=== PATIENT | male | born 1960 | race American Indian/Alaskan Native ===

== ENCOUNTER 2017-04-01 13:52 | Emergency (ER) | payer OTHER ==
--- NOTE | 2017-04-01 15:57 | Emergency Department Report ---
Chief Complaint: Upper Respiratory Infection Stated Complaint: COUGH Time Seen by Provider: 04/01/17 15:54 - HPI History of Present Illness: PT c/o cough since December - Review of Systems: + cp + dizziness - Exam Physical Exam: pt is alert and appropriate in triage no acute resp distress lung sounds diminished jarek MSE screening note: Focused history and physical exam performed. Due to findings the following was ordered: ekg, xr, ct, labs ED Disposition for MSE Condition: Stable
[2017-04-01 16:44] LABS: Basophils % (Auto) 0.5 % (0.0-1.8); Eosinophils % (Auto) 5.8 % (0.0-4.3); Hematocrit 33.8 % (35.5-45.6); Mean Corpuscular HGB Conc 33 % (32-34); Mean Corpuscular Hemoglobin 29 pg (28-32); Mean Corpuscular Volume 89 fl (84-94); Platelet Count 199 K/mm3 (140-440); Red Blood Count 3.81 M/mm3 (3.65-5.03); White Blood Count 5.4 K/mm3 (4.5-11.0)
[2017-04-01 17:00] LABS: Alanine Aminotransferase 11 units/L (7-56); Albumin 4.2 g/dL (3.9-5); Albumin/Globulin Ratio 1.7 %; Alkaline Phosphatase 81 units/L (35-129); Anion Gap 22 mmol/L; BUN/Creatinine Ratio 9.16; Blood Urea Nitrogen 33 mg/dL (9-20); Calcium 9.3 mg/dL (8.4-10.2); Carbon Dioxide 20 mmol/L (22-30); Chloride 106.2 mmol/L (98-107); Glucose 91 mg/dL (75-100); Potassium 5.5 mmol/L (3.6-5.0); Sodium 143 mmol/L (137-145); Total Protein 6.7 g/dL (6.3-8.2)
--- NOTE | 2017-04-01 17:41 | Cat Scan Report ---
FINAL REPORT EXAM: CT HEAD/BRAIN WO CON HISTORY: dizziness TECHNIQUE: CT head without contrast PRIORS: None. FINDINGS: No acute intra-axial or extra-axial hemorrhage is identified. There is no evidence of midline shift or mass effect. The ventricles and sulci are within normal limits. Calvert-white matter differentiation is intact. No acute parenchymal abnormalities seen. There are patchy and confluent hypodensities within the supratentorial white matter. Bony calvarium is grossly intact. Visualized portions of the mastoids and paranasal sinuses are unremarkable. IMPRESSION: Bilateral white matter hypodensity which appears more prominent in the left posterior parietal region. Could reflect a number of etiologies including chronic small vessel ischemic change, vasculitis or other etiologies. Consider followup MRI if continued clinical concern.
[2017-04-01 19:52] LABS: Bilirubin,Urine NEG (Negative); Blood,Urine NEG (Negative); Ketones,Urine NEG (Negative); Leukocyte Esterase,Urine NEG (Negative); Mucus,Urine FEW /HPF; Nitrite,Urine NEG (Negative); Urobilinogen,Urine < 2.0 mg/dL (<2.0)
--- NOTE | 2017-04-01 20:25 | Emergency Department Report ---
ED General Adult HPI - General Chief complaint: Upper Respiratory Infection Stated complaint: COUGH Time Seen by Provider: 04/01/17 15:54 Source: patient Mode of arrival: Ambulatory Limitations: No Limitations - History of Present Illness Initial comments: Patient is a 46-year-old male who presents with cough that on since December. He states that he takes his lisinopril and his doctor says that it may be the reason why. He states that he's been lightheaded when he coughs. No chest pain and he is short of breath with exertion. Shortness of breath is mild. Walking makes the shortness of breath and coughing worse him not taking his lisinopril makes the coughing better. Patient denies having any fever but he states that he's been coughing some green mucus for the last week days. - Related Data Previous Rx's Medication Instructions Recorded Last Taken Type Famotidine [Pepcid] 20 mg PO DAILY #30 tablet 06/12/15 03/14/16 09:00 Rx Carvedilol [Coreg] 12.5 mg PO BID #60 tablet 10/03/15 03/15/16 09:00 Rx Furosemide [Lasix TAB] 20 mg PO QDAY #30 tablet 10/03/15 03/14/16 09:00 Rx amLODIPine [Norvasc] 10 mg PO QDAY #30 tablet 10/03/15 03/14/16 09:00 Rx hydrALAZINE [Apresoline TAB] 100 mg PO TID #90 tab 10/03/15 03/14/16 09:00 Rx oxyCODONE /ACETAMINOPHEN [Percocet 1 - 2 tab PO Q4HR PRN #40 tab 03/15/16 Unknown Rx 5/325] ALBUTEROL Inhaler [ProAir HFA 2 puff IH QID PRN #1 inhalation 04/01/17 Unknown Rx Inhaler] Azithromycin [Zithromax Z-ANGEL] 250 mg PO DAILY #5 tablet 04/01/17 Unknown Rx predniSONE [Deltasone] 20 mg PO BID #10 tab 04/01/17 Unknown Rx Allergies Allergy/AdvReac Type Severity Reaction Status Date / Time No Known Allergies Allergy Verified 06/11/15 20:50 ED Review of Systems ROS: Stated complaint: COUGH Other details as noted in HPI Constitutional: denies: chills, fever Eyes: denies: eye pain, eye discharge, vision change ENT: denies: ear pain, throat pain Respiratory: cough, SOB with exertion Cardiovascular: denies: chest pain, palpitations Endocrine: no symptoms reported Gastrointestinal: denies: abdominal pain, nausea, diarrhea Genitourinary: denies: urgency, dysuria Musculoskeletal: denies: back pain, joint swelling, arthralgia Skin: denies: rash, lesions Neurological: denies: headache, weakness, paresthesias Psychiatric: denies: anxiety, depression Hematological/Lymphatic: denies: easy bleeding, easy bruising ED Past Medical Hx - Past Medical History Previous Medical History?: Yes Hx Hypertension: Yes (FOR YRS, DR. GREEN- PCP) Hx Heart Attack/AMI: No Hx Congestive Heart Failure: Yes (IN 2013) Hx Diabetes: No Hx GERD: Yes Hx Renal Disease: Yes (CKD STAGE 3) Hx Sickle Cell Disease: No Hx Headaches / Migraines: Yes Hx Seizures: No Hx Asthma: No Hx COPD: No Hx Dementia: No Hx HIV: No Additional medical history: Crohns - Surgical History Past Surgical History?: Yes Hx Cholecystectomy: Yes ([place] 1998) Hx Appendectomy: Yes ([place] 2007) - Social History Smoking Status: Current Every Day Smoker Substance Use Type: None - Medications Home Medications: Home Medications Medication Instructions Recorded Confirmed Last Taken Type Famotidine [Pepcid] 20 mg PO DAILY #30 tablet 06/12/15 03/15/16 03/14/16 09:00 Rx Carvedilol [Coreg] 12.5 mg PO BID #60 tablet 10/03/15 03/15/16 03/15/16 09:00 Rx Furosemide [Lasix TAB] 20 mg PO QDAY #30 tablet 10/03/15 03/15/16 03/14/16 09: 00 Rx amLODIPine [Norvasc] 10 mg PO QDAY #30 tablet 10/03/15 03/15/16 03/14/16 09:00 Rx hydrALAZINE [Apresoline TAB] 100 mg PO TID #90 tab 10/03/15 03/15/16 03/14/16 09 :00 Rx oxyCODONE /ACETAMINOPHEN [Percocet 1 - 2 tab PO Q4HR PRN #40 tab 03/15/16 Unknown Rx 5/325] ALBUTEROL Inhaler [ProAir HFA 2 puff IH QID PRN #1 inhalation 04/01/17 Unknown Rx Inhaler] Azithromycin [Zithromax Z-ANGEL] 250 mg PO DAILY #5 tablet 04/01/17 Unknown Rx predniSONE [Deltasone] 20 mg PO BID #10 tab 04/01/17 Unknown Rx ED Physical Exam - General Limitations: No Limitations General appearance: alert - Head Head exam: Present: atraumatic - Eye Eye exam: Present: normal appearance, EOMI - ENT ENT exam: Present: mucous membranes moist - Neck Neck exam: Present: normal inspection - Respiratory Respiratory exam: Present: normal lung sounds bilaterally. Absent: respiratory distress - Cardiovascular Cardiovascular Exam: Present: regular rate, normal rhythm. Absent: systolic murmur, diastolic murmur, rubs, gallop - GI/Abdominal GI/Abdominal exam: Present: soft, normal bowel sounds - Extremities Exam Extremities exam: Present: normal inspection - Back Exam Back exam: Present: normal inspection - Neurological Exam Neurological exam: Present: alert, oriented X3 - Psychiatric Psychiatric exam: Present: normal affect, normal mood - Skin Skin exam: Present: warm, dry, intact, normal color. Absent: rash ED Course Vital Signs 04/01/17 04/01/17 15:54 21:24 Temperature 97.8 F Pulse Rate 59 L 64 Respiratory 16 18 Rate Blood Pressure 139/88 Blood Pressure 138/77 [Right] O2 Sat by Pulse 100 98 Oximetry - Reevaluation(s) Reevaluation #1: 04/01/17 21:23 Patient got breathing treatment and states he is feeling a lot better. Reevaluation #2: 04/01/17 21:39 Discussed with patient to stop taking his NUBIA inhibitor medication which is causing his dry cough. Patient understands and will have patient sent home with oral antibiotic medication and follow-up with his PCP. ED Medical Decision Making - Lab Data Result diagrams: 04/01/17 16:11 04/01/17 16:11 Laboratory Results - last 24 hr 04/01/17 04/01/17 04/01/17 16:11 16:11 19:15 WBC 5.4 RBC 3.81 Hgb 11.0 L Hct 33.8 L MCV 89 MCH 29 MCHC 33 RDW 16.0 H Plt Count 199 Lymph % (Auto) 23.7 [place] % (Auto) 10.0 H Eos % (Auto) 5.8 H Baso % (Auto) 0.5 Lymph # 1.3 [place] # 0.5 Eos # 0.3 Baso # 0.0 Seg Neutrophils % 60.0 Seg Neutrophils # 3.3 Sodium 143 Potassium 5.5 H Chloride 106.2 Carbon Dioxide 20 L Anion Gap 22 BUN 33 H Creatinine 3.6 H Estimated GFR 21 BUN/Creatinine Ratio 9.16 Glucose 91 Calcium 9.3 Total Bilirubin 0.50 AST 13 ALT 11 Alkaline Phosphatase 81 Troponin T < 0.010 NT-Pro-B Natriuret Pep 122.3 Total Protein 6.7 Albumin 4.2 Albumin/Globulin Ratio 1.7 Urine Color Yellow Urine Turbidity Clear Urine pH 5.0 Ur Specific [place] 1.018 Urine Protein 100 mg/dl Urine Glucose (UA) Neg Urine Ketones Neg Urine Blood Neg Urine Nitrite Neg Urine Bilirubin Neg Urine Urobilinogen < 2.0 Ur Leukocyte Esterase Neg Urine WBC (Auto) 2.0 Urine RBC (Auto) 3.0 Urine Mucus Few - EKG Data -: EKG Interpreted by [place] - EKG Data 04/01/17 21:19 EKG shows sinus bradycardia with first-degree AV block patient has LVH no ST segment elevation or T wave abnormality. - Radiology Data Radiology results: image reviewed Chest x-ray: Shows retrocardiac infiltrate concerning for walking pneumonia CT head non contrast: shows chronic ischemic vascular disease - Medical Decision Making Chief medical diagnosis: Bronchitis Differential medical diagnosis: Pneumonia, COPD exacerbation, brain tumor EKG, CBC, CMP, troponin, x-ray, CT head Chest x-ray shows signs of walking pneumonia, EKG and blood work showed no concerning signs. Patient is able to ambulate without difficulty. He is feeling better after the breathing treatment and CT head shows no acute intracranial process is no longer lightheaded. Patient can go home and follow up with his primary care provider. Additional verbal discharge instructions were given. Critical care attestation.: If time is entered above; I have spent that time in minutes in the direct care of this critically ill patient, excluding procedure time. ED Disposition Clinical Impression: Walking pneumonia, Cough due to NUBIA inhibitor Disposition: DC-01 TO HOME OR SELFCARE Is pt being admited?: No Does the pt Need Aspirin: No Condition: Stable Instructions: Pneumonia (ED) Prescriptions: ALBUTEROL Inhaler [ProAir HFA Inhaler] 2 puff IH QID PRN #1 inhalation PRN Reason: Shortness Of Breath Azithromycin [Zithromax Z-ANGEL] 250 mg PO DAILY #5 tablet predniSONE [Deltasone] 20 mg PO BID #10 tab Referrals: PRIMARY CARE, [Primary Care Provider] - 3-5 Days Time of Disposition: 21:49
[2017-04-01] MEDS ORDERED: PROVENTIL IH ONE (20:27)
[2017-04-01 21:27] VITALS: BP 138/77
[2017-04-01] MEDS ORDERED: ZITHROMAX PO ONE (21:35)
--- NOTE | 2017-04-02 09:42 | XRay Report ---
Chest 2 views. History: Cough. Findings: The heart is mildly enlarged with normal pulmonary vascularity. The lungs are free of acute infiltrates. No significant pleural abnormalities are seen. The bony structures are unremarkable. Impression: No acute findings.
== END 2017-04-01 21:56 | disposition home or self-care (01) ==
LOC: ED 13:52
DX: J18.9 Pneumonia, unspecified organism (principal); I13.0 Hypertensive heart and chronic kidney disease with heart failure and stage 1 through stage 4 chronic kidney disease, or unspecified chronic kidney disease; N18.3 Chronic kidney disease, stage 3 (moderate); I50.9 Heart failure, unspecified; K21.9 Gastro-esophageal reflux disease without esophagitis; G43.909 Migraine, unspecified, not intractable, without status migrainosus; F17.210 Nicotine dependence, cigarettes, uncomplicated
CPT/HCPCS: 36415; 70450; 71020; 80053; 81001; 83880; 84484; 85025; 93005; 93010; 99284

== ENCOUNTER 2017-05-02 11:16 | Emergency (ER) | payer OTHER ==
[2017-05-02 13:15] LABS: Basophils % (Auto) 0.5 % (0.0-1.8); Eosinophils % (Auto) 4.2 % (0.0-4.3); Hematocrit 35.6 % (35.5-45.6); Hemoglobin 11.9 gm/dl (11.8-15.2); Mean Corpuscular HGB Conc 33 % (32-34); Mean Corpuscular Hemoglobin 30 pg (28-32); Mean Corpuscular Volume 91 fl (84-94); Platelet Count 222 K/mm3 (140-440); Red Blood Count 3.92 M/mm3 (3.65-5.03); Red Cell Distribution Width 16.6 % (13.2-15.2); White Blood Count 4.6 K/mm3 (4.5-11.0)
[2017-05-02 13:35] LABS: Albumin 4.2 g/dL (3.9-5); Albumin/Globulin Ratio 1.2 %; BUN/Creatinine Ratio 5.94; Bilirubin,Total 0.7 mg/dL (0.1-1.2); Calcium 9.8 mg/dL (8.4-10.2); Chloride 101.8 mmol/L (98-107); Potassium 5.7 mmol/L (3.6-5.0); Total Protein 7.6 g/dL (6.3-8.2)
[2017-05-02 13:45] LABS: Bacteria,Urine 1+ /HPF (Negative); Bilirubin,Urine NEG (Negative); Blood,Urine NEG (Negative); Ketones,Urine NEG (Negative); Leukocyte Esterase,Urine NEG (Negative); Mucus,Urine 3+ /HPF; Nitrite,Urine NEG (Negative); Urobilinogen,Urine < 2.0 mg/dL (<2.0)
[2017-05-02 16:11] VITALS: BP 145/93
[2017-05-02] MEDS ORDERED: NACL 0.9% 1000 ML 1,000 ML IV ONE (16:11)
[2017-05-02] MEDS ORDERED: MORPHINE IV ONE (16:11)
[2017-05-02] MEDS ORDERED: ALUM-MAG HYDROX-SIMETH 200-200-20MG/5ML PO ONE (16:12)
[2017-05-02] MEDS ORDERED: ZOFRAN IV ONE (16:12)
--- NOTE | 2017-05-02 16:15 | Emergency Department Report ---
HPI - General Chief Complaint: Abdominal Pain Time Seen by Provider: 05/02/17 16:10 - HPI HPI: 56-year-old -[place] male presents to the ED with severe epigastric pain , nausea but no vomiting. Patient has a history of gastric ulcer for which he takes Protonix. Patient states he is compliant with his medication. He states that his pain is accompanied by nausea, but no vomiting, no urinary symptoms, no diarrhea. Patient has not taking any medication at home for his symptoms. he denies any exacerbating factors. he denies any alleviating factors. he denies any recent travel, or unusual foods. he denies any sick contacts. MD Complaint: abdominal pain -: Gradual Location: Epigastric Radiation: none Migration to: no migration Severity scale (0 -10): 10 Quality: sharp Improves With: nothing Associated Symptoms: nausea, vomiting, chills ED Past Medical Hx - Past Medical History Previous Medical History?: Yes Hx Hypertension: Yes (FOR YRS, DR. GREEN- PCP) Hx Heart Attack/AMI: No Hx Congestive Heart Failure: Yes (IN 2013) Hx Diabetes: No Hx GERD: Yes Hx Renal Disease: Yes (CKD STAGE 3) Hx Sickle Cell Disease: No Hx Headaches / Migraines: Yes Hx Seizures: No Hx Asthma: No Hx COPD: No Hx Dementia: No Hx HIV: No Additional medical history: Crohns - Surgical History Past Surgical History?: Yes Hx Cholecystectomy: Yes ([place] 1998) Hx Appendectomy: Yes ([place] 2007) - Social History Smoking Status: Current Every Day Smoker Substance Use Type: None - Medications Home Medications: Home Medications Medication Instructions Recorded Confirmed Last Taken Type Famotidine [Pepcid] 20 mg PO DAILY #30 tablet 06/12/15 03/15/16 03/14/16 09:00 Rx Carvedilol [Coreg] 12.5 mg PO BID #60 tablet 10/03/15 03/15/16 03/15/16 09:00 Rx Furosemide [Lasix TAB] 20 mg PO QDAY #30 tablet 10/03/15 03/15/16 03/14/16 09: 00 Rx amLODIPine [Norvasc] 10 mg PO QDAY #30 tablet 10/03/15 03/15/16 03/14/16 09:00 Rx hydrALAZINE [Apresoline TAB] 100 mg PO TID #90 tab 10/03/15 03/15/1616 09 :00 Rx oxyCODONE /ACETAMINOPHEN [Percocet 1 - 2 tab PO Q4HR PRN #40 tab 03/15/16 Unknown Rx 5/325] ALBUTEROL Inhaler [ProAir HFA 2 puff IH QID PRN #1 inhalation 04/01/17 Unknown Rx Inhaler] Azithromycin [Zithromax Z-ANGEL] 250 mg PO DAILY #5 tablet 04/01/17 Unknown Rx predniSONE [Deltasone] 20 mg PO BID #10 tab 04/01/17 Unknown Rx ED Review of Systems ROS: Stated complaint: ABDOMINAL PAIN Other details as noted in HPI Comment: All other systems reviewed and negative Respiratory: no symptoms reported Endocrine: no symptoms reported Gastrointestinal: abdominal pain, nausea Genitourinary: as per HPI Physical Exam - Physical Exam Vital Signs: Vital Signs 05/02/17 05/02/17 12:41 16:10 Temperature 99.0 F Pulse Rate 70 72 Respiratory 16 16 Rate Blood Pressure 138/82 Blood Pressure 145/93 [Left] O2 Sat by Pulse 100 98 Oximetry Physical Exam: - Physical Exam - General Limitations: No Limitations General appearance: alert, in no apparent distress, - Head Head exam: Present: atraumatic, normocephalic - Eye Eye exam: Present: normal appearance - ENT ENT exam: Present: mucous membranes moist - Neck Neck exam: Present: normal inspection - Respiratory Respiratory exam: Present: normal lung sounds bilaterally. Absent: respiratory distress - Cardiovascular Cardiovascular Exam: Present: normal rhythm, normal rate. Absent: systolic murmur, diastolic murmur, rubs, gallop - GI/Abdominal GI/Abdominal exam: Present: soft, normal bowel sounds, mild epigastric tenderness. - Extremities Exam Extremities exam: Present: normal inspection - Back Exam Back exam: Present: normal inspection - Neurological Exam Neurological exam: Present: alert, oriented X3 - Psychiatric Psychiatric exam: normal affect and mood but denies suicidal ideations, denies homicidal ideation - Skin Skin exam: Present: warm, dry, intact, normal color. Absent: rash ED Course Vital Signs 05/02/17 05/02/17 12:41 16:10 Temperature 99.0 F Pulse Rate 70 72 Respiratory 16 16 Rate Blood Pressure 138/82 Blood Pressure 145/93 [Left] O2 Sat by Pulse 100 98 Oximetry ED Medical Decision Making - Lab Data Result diagrams: 05/02/17 13:02 05/02/17 13:02 Critical care attestation.: If time is entered above; I have spent that time in minutes in the direct care of this critically ill patient, excluding procedure time. ED Disposition Clinical Impression: Abdominal pain Qualifiers: Abdominal location: generalized Qualified Code(s): R10.84 - Generalized abdominal pain Disposition: DC-01 TO HOME OR SELFCARE Is pt being admited?: No Does the pt Need Aspirin: No Condition: Stable Referrals: LESIA GREEN [Other] - 3-5 Days
[2017-05-02] MEDS ORDERED: BENADRYL IV ONE (16:34)
[2017-05-02] MEDS ORDERED: BENADRYL ONE (16:36)
--- NOTE | 2017-05-02 20:11 | Cat Scan Report ---
FINAL REPORT EXAM: CT ABDOMEN PELVIS WO CON HISTORY: severe abd pain TECHNIQUE: CT of the abdomen and pelvis with oral contrast PRIORS: Comparison is dated May 28, 2014 FINDINGS: No acute abnormalities identified in the visualized lung bases No focal abnormality seen within the liver parenchyma nonenhanced images. Patient is status post cholecystectomy. There is a small pericardial effusion present Spleen is normal in size No peripancreatic inflammatory changes are observed. The kidneys demonstrate no evidence for hydronephrosis or nephrolithiasis. The adrenal glands are unremarkable. The abdominal aorta is normal in caliber. No free-fluid or free air is identified within the abdomen or pelvis Distal small bowel loops demonstrate a target like appearance with a "fat halo sign" this was present previously but appears somewhat more extensive on the current study. There are 2 curvilinear radiodense foci within the distal small bowel measuring approximately 2.2 centimeters each in length. These were present on the previous study. There is associated distention of the small bowel segment containing the objects. There is suggestion of postoperative changes at this segment with suture material present along the bowel wall. Please correlate with surgical history. Multiple diverticula are present descending and sigmoid colon. No evidence for acute diverticulitis at this time. Urinary bladder is unremarkable. IMPRESSION: Target like appearance of ileal small bowel loops with some areas of edematous mucosal thickening. Findings are most suggestive of inflammatory bowel disease this does appear more extensive than on the prior study Postoperative changes with radiodense objects within a distal ileal loop. Could be postoperative in nature versus retained foreign bodies. Please correlate with surgical history Colonic diverticular disease. No evidence for acute diverticulitis
== END 2017-05-02 20:26 | disposition home or self-care (01) ==
LOC: ED 11:16
DX: R10.84 Generalized abdominal pain (principal); I50.9 Heart failure, unspecified; I12.9 Hypertensive chronic kidney disease with stage 1 through stage 4 chronic kidney disease, or unspecified chronic kidney disease; N18.3 Chronic kidney disease, stage 3 (moderate); G43.909 Migraine, unspecified, not intractable, without status migrainosus; K50.90 Crohn's disease, unspecified, without complications; F17.200 Nicotine dependence, unspecified, uncomplicated
CPT/HCPCS: 36415; 74176; 80053; 81001; 83690; 85025; 96361; 96374; 96375; 99284; J1200; J2270; J2405; J7030

== ENCOUNTER 2017-09-23 13:32 | Emergency (ER) | payer OTHER ==
[2017-09-23 15:22] LABS: Basophils % (Auto) 0.3 % (0.0-1.8); Eosinophils # (Auto) 0.3 K/mm3 (0.0-0.4); Eosinophils % (Auto) 6.2 % (0.0-4.3); Hematocrit 35.5 % (35.5-45.6); Hemoglobin 11.7 gm/dl (11.8-15.2); Lymphocytes % (Auto) 20.2 % (13.4-35.0); Mean Corpuscular HGB Conc 33 % (32-34); Mean Corpuscular Hemoglobin 30 pg (28-32); Mean Corpuscular Volume 90 fl (84-94); Monocytes # (Auto) 0.4 K/mm3 (0.0-0.8); Monocytes % (Auto) 8.2 % (0.0-7.3); Platelet Count 182 K/mm3 (140-440); Red Blood Count 3.93 M/mm3 (3.65-5.03); Red Cell Distribution Width 14.5 % (13.2-15.2)
[2017-09-23 15:44] LABS: Calcium 9.2 mg/dL (8.4-10.2)
[2017-09-23 16:21] LABS: Bilirubin,Urine NEG (Negative); Blood,Urine NEG (Negative); Color,Urine Yellow (Yellow); Mucus,Urine FEW /HPF; Nitrite,Urine NEG (Negative); Urobilinogen,Urine < 2.0 mg/dL (<2.0)
[2017-09-23 19:05] VITALS: BP 157/103
[2017-09-23] MEDS ORDERED: TYLENOL #3 PO ONE (20:33)
--- NOTE | 2017-09-23 20:33 | Emergency Department Report ---
ED Headache HPI - General Chief Complaint: Back Pain/Injury Stated Complaint: HULL LOW BACK PAIN Time Seen by Provider: 09/23/17 19:50 Source: patient Exam Limitations: no limitations - History of Present Illness Initial Comments: Patient is here complaining of headache which she says his generalized however worse on the right side of the temporal area. It started about 3 days ago nonradiating aching with no aggravating or relieving factor. Patient said he as tried several Goody powders with no relief. Patient also complains of some right flank pain which has been going on since January 2015, mild to moderate intensity nonradiating with no aggravating or relieving factor. Quality: moderate Recent Head Trauma: no recent headache/trauma Modifying Factors: improves with: other (none) Allergies/Adverse Reactions: Allergies No Known Allergies Allergy (Verified 06/11/15 20:50) Home Medications: Ambulatory Orders Famotidine [Pepcid] 20 mg PO DAILY #30 tablet 06/12/15 Carvedilol [Coreg] 12.5 mg PO BID #60 tablet 10/03/15 Furosemide [Lasix TAB] 20 mg PO QDAY #30 tablet 10/03/15 amLODIPine [Norvasc] 10 mg PO QDAY #30 tablet 10/03/15 hydrALAZINE [Apresoline TAB] 100 mg PO TID #90 tab 10/03/15 oxyCODONE /ACETAMINOPHEN [Percocet 5/325 mg] 1 - 2 tab PO Q4HR PRN #40 tab 03/15 ALBUTEROL Inhaler [ProAir HFA Inhaler] 2 puff IH QID PRN #1 inhalation 04/01/17 Azithromycin [Zithromax Z-ANGEL] 250 mg PO DAILY #5 tablet 04/01/17 predniSONE [Deltasone] 20 mg PO BID #10 tab 04/01/17 Dicyclomine [Bentyl] 10 mg PO QID #40 capsule 05/02/17 Cyclobenzaprine HCl [Flexeril 5 MG TAB] 5 mg PO TID PRN #30 tab 09/23/17 ED Review of Systems ROS: Stated complaint: HULL LOW BACK PAIN Other details as noted in HPI Comment: All other systems reviewed and negative ED Past Medical Hx - Past Medical History Previous Medical History?: Yes Hx Hypertension: Yes (FOR YRS, DR. GREEN- PCP) Hx Heart Attack/AMI: No Hx Congestive Heart Failure: Yes (IN 2013) Hx Diabetes: No Hx GERD: Yes Hx Renal Disease: Yes (CKD STAGE 3) Hx Sickle Cell Disease: No Hx Headaches / Migraines: Yes Hx Seizures: No Hx Asthma: No Hx COPD: No Hx Dementia: No Hx HIV: No Additional medical history: Crohns - Surgical History Past Surgical History?: Yes Hx Cholecystectomy: Yes ([place] 1998) Hx Appendectomy: Yes ([place] 2007) - Social History Smoking Status: Current Every Day Smoker Substance Use Type: Prescribed - Medications Home Medications: Home Medications Medication Instructions Recorded Confirmed Last Taken Type Famotidine [Pepcid] 20 mg PO DAILY #30 tablet 06/12/15 03/15/16 03/14/16 09:00 Rx Carvedilol [Coreg] 12.5 mg PO BID #60 tablet 10/03/15 03/15/16 03/15/16 09:00 Rx Furosemide [Lasix TAB] 20 mg PO QDAY #30 tablet 10/03/15 03/15/16 03/14/16 09: 00 Rx amLODIPine [Norvasc] 10 mg PO QDAY #30 tablet 10/03/15 03/15/16 03/14/16 09:00 Rx hydrALAZINE [Apresoline TAB] 100 mg PO TID #90 tab 10/03/15 03/15/16 03/14/16 09 :00 Rx oxyCODONE /ACETAMINOPHEN [Percocet 1 - 2 tab PO Q4HR PRN #40 tab 03/15/16 Unknown Rx 5/325 mg] ALBUTEROL Inhaler [ProAir HFA 2 puff IH QID PRN #1 inhalation 04/01/17 Unknown Rx Inhaler] Azithromycin [Zithromax Z-ANGEL] 250 mg PO DAILY #5 tablet 04/01/17 Unknown Rx predniSONE [Deltasone] 20 mg PO BID #10 tab 04/01/17 Unknown Rx Dicyclomine [Bentyl] 10 mg PO QID #40 capsule 05/02/17 Unknown Rx Cyclobenzaprine HCl [Flexeril 5 MG 5 mg PO TID PRN #30 tab 09/23/17 Unknown Rx TAB] ED Physical Exam - General Limitations: No Limitations General appearance: alert, in no apparent distress - Head Head exam: Present: atraumatic, normocephalic - Eye Eye exam: Present: normal appearance - ENT ENT exam: Present: normal orophraynx, mucous membranes moist - Neck Neck exam: Present: normal inspection, full ROM - Respiratory Respiratory exam: Present: normal lung sounds bilaterally. Absent: respiratory distress - Cardiovascular Cardiovascular Exam: Present: regular rate, normal rhythm. Absent: systolic murmur, diastolic murmur, rubs, gallop - GI/Abdominal GI/Abdominal exam: Present: soft, normal bowel sounds - Extremities Exam Extremities exam: Present: normal inspection - Back Exam Back exam: Present: normal inspection, full ROM, muscle spasm (paraspinal lumbar area bilaterally ) - Neurological Exam Neurological exam: Present: alert, oriented X3, CN II-XII intact - Psychiatric Psychiatric exam: Present: normal affect, normal mood - Skin Skin exam: Present: warm, dry ED Course Vital Signs 09/23/17 09/23/17 14:42 19:04 Temperature 98.7 F Pulse Rate 66 68 Respiratory 18 18 Rate Blood Pressure 164/95 Blood Pressure 157/103 [Left] O2 Sat by Pulse 97 100 Oximetry ED Medical Decision Making - Lab Data Result diagrams: 09/23/17 15:00 09/23/17 14:54 Critical care attestation.: If time is entered above; I have spent that time in minutes in the direct care of this critically ill patient, excluding procedure time. ED Disposition Clinical Impression: Headache, Low back pain Disposition: - TO HOME OR SELFCARE Is pt being admited?: No Does the pt Need Aspirin: No Condition: Stable Instructions: Tension Headache (ED), Muscle Spasm (ED) Additional Instructions: Take Tylenol as needed for the headache. Prescriptions: Cyclobenzaprine HCl [Flexeril 5 MG TAB] 5 mg PO TID PRN #30 tab PRN Reason: Muscle Spasm Referrals: SABINO GAUTAM MD [Staff Physician] - 3-5 Days Time of Disposition: 20:38 Print Language: WOLOF
== END 2017-09-23 21:03 | disposition home or self-care (01) ==
LOC: ED 13:32
DX: R51 Headache (principal); M54.5 Low back pain; E11.65 Type 2 diabetes mellitus with hyperglycemia; N18.3 Chronic kidney disease, stage 3 (moderate); I12.9 Hypertensive chronic kidney disease with stage 1 through stage 4 chronic kidney disease, or unspecified chronic kidney disease; I50.9 Heart failure, unspecified; G43.909 Migraine, unspecified, not intractable, without status migrainosus; F17.200 Nicotine dependence, unspecified, uncomplicated; Z90.49 Acquired absence of other specified parts of digestive tract
CPT/HCPCS: 36415; 80053; 81001; 85025; 99283

== ENCOUNTER 2017-10-10 11:15 | Outpatient (CLI) | payer MEDICARE ==
--- NOTE | 2017-10-10 23:50 | Cat Scan Report ---
FINAL REPORT PROCEDURE: CT CHEST WO CON TECHNIQUE: Computerized axial tomography of the chest was performed without contrast material. This study is performed without intravenous contrast and the sensitivity for pathology, including neoplasms, adenopathy, abscess, pulmonary embolism and aortic dissection, is reduced. HISTORY: SCREENING FOR CANCER COMPARISON: No prior studies are available for comparison. TECHNICAL QUALITY: Satisfactory. FINDINGS: There is mild cardiomegaly. Minimal pericardial effusion is noted. Focal atelectatic changes are noted involving medial right upper lobe. Otherwise bilateral lungs are free of infiltrates or mass lesions. Pleural spaces are clear. Hilar structures are within normal limits as visualized on this noncontrast study. Coronary arterial calcification is noted. There is no lymphadenopathy. Thyroid demonstrates normal size and density. Visualized upper abdominal structures are within normal limits. IMPRESSION: No evidence of any neoplastic infiltrative process. Mild cardiomegaly with coronary arterial calcification. Minimal pericardial effusion..
== END 2017-10-10 11:16 | disposition home or self-care (01) ==
LOC: CT 11:15
PROVIDERS: ATTEND Family Medicine
DX: Z12.2 Encounter for screening for malignant neoplasm of respiratory organs (principal); J98.11 Atelectasis; I51.7 Cardiomegaly; I31.3 Pericardial effusion (noninflammatory); I25.10 Atherosclerotic heart disease of native coronary artery without angina pectoris; F17.200 Nicotine dependence, unspecified, uncomplicated
CPT/HCPCS: 71250

== ENCOUNTER 2019-01-01 14:15 | Outpatient (CLI) | payer MEDICARE ==
--- NOTE | 2019-01-01 15:07 | XRay Report ---
CHEST 2 VIEWS INDICATION: End-stage renal disease. COMPARISON: 07/08/2018 FINDINGS: Frontal and lateral chest radiographs demonstrate stable cardiomediastinal/possible mild cardiomegaly. Clear, well-expanded lungs. Multilevel thoracic spondylosis. CONCLUSION: No acute chest process or significant interval change, as described. Thank you for the opportunity to participate in this patient's care.
== END 2019-01-01 14:16 | disposition home or self-care (01) ==
LOC: XRAY 14:15
PROVIDERS: ATTEND Internal Medicine Nephrology
DX: I13.2 Hypertensive heart and chronic kidney disease with heart failure and with stage 5 chronic kidney disease, or end stage renal disease (principal); I50.9 Heart failure, unspecified; N18.6 End stage renal disease; K21.9 Gastro-esophageal reflux disease without esophagitis
CPT/HCPCS: 36415; 71046; 86706

== ENCOUNTER 2020-04-17 18:58 | Observation (INO) | payer MEDICARE ==
--- NOTE | 2020-04-17 21:13 | Emergency Department Report ---
Blank Doc - Documentation Documentation: 59-year-old male that presents with generalized abdominal pain. Patient is on dialysis. This initial assessment/diagnostic orders/clinical plan/treatment(s) is/are subject to change based on patient's health status, clinical progression and re- assessment by fellow clinical providers in the ED. Further treatment and workup at subsequent clinical providers discretion. Patient/guardians urged not to elope from the ED as their condition may be serious if not clinically assessed and managed. Initial orders include: 1- Patient sent to MAIN ED for further evaluation and treatment 2- labs 3- UA
[2020-04-17 21:39] LABS: Basophils % (Auto) 0.6 % (0.0-1.8); Eosinophils # (Auto) 0.1 K/mm3 (0.0-0.4); Eosinophils % (Auto) 1.5 % (0.0-4.3); Hematocrit 31.8 % (35.5-45.6); Hemoglobin 10.8 gm/dl (11.8-15.2); Lymphocytes # (Auto) 0.7 K/mm3 (1.2-5.4); Mean Corpuscular HGB Conc 34 % (32-34); Mean Corpuscular Volume 98 fl (84-94); Monocytes # (Auto) 0.6 K/mm3 (0.0-0.8); Monocytes % (Auto) 8.5 % (0.0-7.3); Platelet Count 219 K/mm3 (140-440); Red Blood Count 3.24 M/mm3 (3.65-5.03); Red Cell Distribution Width 14.6 % (13.2-15.2)
[2020-04-17 21:53] LABS: Amorphous Crystals,Urine Few; Bacteria,Urine 1+ /HPF (Negative); Bilirubin,Urine NEG (Negative); Blood,Urine SM (Negative); Color,Urine Yellow (Yellow); Urobilinogen,Urine < 2.0 mg/dL (<2.0)
[2020-04-17 21:55] LABS: Protein,Urine >500 mg/dL (Negative)
[2020-04-17 22:07] LABS: Albumin 3.6 g/dL (3.9-5); Calcium 9.6 mg/dL (8.4-10.2)
--- NOTE | 2020-04-18 01:39 | Cat Scan Report ---
CT ABDOMEN AND PELVIS WITHOUT CONTRAST INDICATION: Generalized abdominal pain TECHNICAL: Multiple axial CT images of the abdomen and pelvis were acquired without intravenous contr ast. Sagittal and coronal reformats were obtained. All CTs at this facility utilize dose reduction techniques including automated exposure control, iterative reconstruction and weight based dosing whe n appropriate to reduce patient radiation dose to as low as reasonable achievable. COMPARISON: CT of the abdomen and pelvis, 05/02/2017 FINDINGS: Limited imaging of the bilateral lung bases demonstrates a small to moderate sized pericardial effusi on, similar to the previous study. Abdomen: There is a small amount of free fluid throughout the upper abdomen. There is a small amount of free air throughout the upper abdomen. The gallbladder has been removed. The liver, spleen, pancre as, bilateral adrenal glands and bilateral kidneys show no definitive evidence of acute abnormality. The bilateral kidneys are atrophic and contain multiple cysts. There is a small to moderate amount of free fluid throughout the abdomen. There are a few loops of mi ldly prominent fluid-filled small bowel. No definitive evidence of bowel obstruction. Several linear radiodensities are again noted within the ileum as demonstrated on the previous study. Target-like ca lcifications measuring 2.7 cm are again noted within the ascending colon. Pelvis: There is moderate diverticulosis of the distal and sigmoid colon. A peritoneal dialysis mikaela ter is limited within the pelvis. There is a small amount of free pelvic fluid. The urinary bladder a ppears grossly normal. Bones and Soft Tissues: Evaluation of bony structures demonstrates no evidence of acute bony abnorma lity. Evaluation of soft tissue structures demonstrates no evidence of acute soft tissue abnormality. IMPRESSION: 1. Scattered amounts of free air within the anterior abdomen which is of indeterminate etiology. Free air could potentially be related to peritoneal dialysis although this is not definitive. 2. Small to moderate amount of abdominopelvic ascites which may be secondary to peritoneal dialysis. 3. Several linear radiodensities are again noted within the ileum that are unchanged from the previou s study. These could potentially be secondary to ingested foreign body or retained surgical foreign b skylar. 4. Multiple scattered sigmoid diverticula are noted. No definitive evidence of diverticulitis. A perf orated diverticula could also potentially be a source of free air. Positive critical value of intraperitoneal free air was identified at approximately 12:20 AM Central time and personally communicated to Dr. Adams in the Emergency Department at 12:34 AM Central time Signer Name: Geena Anne MD Signed: 04/18/2020 1:34 AM Workstation Name: [id number]
--- NOTE | 2020-04-18 01:40 | Emergency Department Report ---
HPI - General Chief Complaint: Abdominal Pain Time Seen by Provider: 04/17/20 21:12 - HPI HPI: This is a 59-year-old -[place] male presents to the emergency department with complaint of a 4-day history of generalized abdominal pain. Patient has a history of congestive heart failure, GERD, migraine headaches, hypertension, Crohn's disease and is end-stage renal disease on peritoneal dialysis. On , 4 days ago, the patient spoke with his nephrology service and was told to come in on Saturday for evaluation of his abdominal pain. He had peritoneal dialysis completed at the dialysis center at that time and also says he was told that he had some constipation. It appears he was given some antibiotics to be infused during the peritoneal dialysis at that time. Normally the patient gets peritoneal dialysis at night. His parts finisher is Dr. Daigle. The patient has had a few bowel movements since that time and does not feel that he is actually constipated. Patient says that he had some history of some type of perforation of the intestines in the past and says that this "feels similar." He has a history of appendectomy and cholecystectomy. ED Past Medical Hx - Past Medical History Previous Medical History?: Yes Hx Hypertension: Yes (FOR YRS, DR. GREEN- PCP) Hx Heart Attack/AMI: No Hx Congestive Heart Failure: Yes (IN 2013) Hx Diabetes: No Hx GERD: Yes Hx Renal Disease: Yes (CKD STAGE 4) Hx Sickle Cell Disease: No Hx Headaches / Migraines: Yes Hx Seizures: No Hx Asthma: No Hx COPD: No Hx Dementia: No Hx HIV: No Additional medical history: Crohns - Surgical History Past Surgical History?: Yes Hx Cholecystectomy: Yes (IN 1998) Hx Appendectomy: Yes (IN 2007) - Social History Smoking Status: Never Smoker Substance Use Type: None - Medications Home Medications: Home Medications Medication Instructions Recorded Confirmed Last Taken Type Famotidine [Pepcid] 20 mg PO DAILY #30 tablet 06/12/15 03/15/16 03/14/16 09:00 Rx Furosemide [Lasix TAB] 20 mg PO QDAY #30 tablet 10/03/15 03/15/16 03/14/16 09:00 Rx amLODIPine 10 mg PO QDAY #30 tablet 10/03/15 03/15/16 03/14/16 09:00 Rx carvediloL [Coreg] 12.5 mg PO BID #60 tablet 10/03/15 03/15/16 03/15/16 09:00 Rx hydrALAZINE [Apresoline TAB] 100 mg PO TID #90 tab 10/03/15 03/15/16 03/14/16 09:00 Rx oxyCODONE /ACETAMINOPHEN [Percocet 1 - 2 tab PO Q4HR PRN #40 tab 03/15/16 Unknown Rx 5/325 mg] Albuterol Mdi (or & Nicu Only) 2 puff IH QID PRN #1 inhalation 04/01/17 Unknown Rx [ProAir HFA Inhaler] Azithromycin [Zithromax Z-ANGEL] 250 mg PO DAILY #5 tablet 04/01/17 Unknown Rx predniSONE [Deltasone] 20 mg PO BID #10 tab 04/01/17 Unknown Rx Dicyclomine [Bentyl] 10 mg PO QID #40 capsule 05/02/17 Unknown Rx Cyclobenzaprine HCl [Flexeril 5 MG 5 mg PO TID PRN #30 tab 09/23/17 Unknown Rx TAB] Methocarbamol [Robaxin-750] 750 mg PO Q6HR PRN #20 tablet 07/08/18 Unknown Rx predniSONE [Prednisone] 50 mg PO DAILY #5 tablet 07/08/18 Unknown Rx traMADoL [Ultram] 50 mg PO Q6HR PRN #7 tablet 07/08/18 Unknown Rx ED Review of Systems ROS: Stated complaint: ABD PAIN/HEADACHE/N/V/COUGH Other details as noted in HPI Comment: All other systems reviewed and negative Constitutional: denies: chills, fever Eyes: denies: eye pain, vision change ENT: denies: ear pain, throat pain Respiratory: denies: cough, shortness of breath Cardiovascular: denies: chest pain, palpitations Gastrointestinal: abdominal pain. denies: vomiting Genitourinary: denies: dysuria, discharge Musculoskeletal: denies: back pain, arthralgia Skin: denies: rash, lesions Neurological: denies: headache, weakness Physical Exam - Physical Exam Vital Signs: Vital Signs 04/17/20 04/17/20 19:39 21:12 Temperature 99.2 F 99.2 F Pulse Rate 91 H 91 H Respiratory 18 22 Rate Blood Pressure 177/119 177/119 O2 Sat by Pulse 95 95 Oximetry Physical Exam: GENERAL: The patient is well-developed well-nourished. HENT: Normocephalic. Atraumatic. Patient has moist mucous membranes. EYES: Extraocular motions are intact. NECK: Supple. Trachea is midline. CHEST/LUNGS: Clear to auscultation. There is no respiratory distress noted. HEART/CARDIOVASCULAR: Regular. There is no tachycardia. There is no murmur. ABDOMEN: There is generalized abdominal tenderness to palpation with right greater than left. There is mild abdominal distention. No guarding. SKIN: Skin is warm and dry. NEURO: The patient is awake, alert, and oriented. The patient is cooperative. The patient has no focal neurologic deficits. Normal speech. MUSCULOSKELETAL: There is no tenderness or deformity. There is no evidence of acute injury. ED Course Vital Signs 04/17/20 04/17/20 19:39 21:12 Temperature 99.2 F 99.2 F Pulse Rate 91 H 91 H Respiratory 18 22 Rate Blood Pressure 177/119 177/119 O2 Sat by Pulse 95 95 Oximetry - Consultations Consultation #1: 04/18/20 02:[address] results of the abdomen and pelvis without contrast showing some scattered mild free air and mild to moderate ascites, I spoke with the general surgeon on-call, Dr. Pollock. She agrees with the plan to admit the patient to the hospital. She has recommended that the patient be treated empirically with IV antibiotics, remain n.p.o., and she would like a repeat CT scan of the abdomen and pelvis using oral contrast to look for signs of extravasation. She will consult on this patient and the patient will be admitted to the hospitalist service. ED Medical Decision Making - Lab Data Result diagrams: 04/17/20 21:23 04/17/20 21:23 - Radiology Data Radiology results: report reviewed CT ABDOMEN AND PELVIS WITHOUT CONTRAST INDICATION: Generalized abdominal pain TECHNICAL: Multiple axial CT images of the abdomen and pelvis were acquired without intravenous contrast. Sagittal and coronal reformats were obtained. All CTs at this facility utilize dose reduction techniques including automated exposure control, iterative reconstruction and weight based dosing when appropriate to reduce patient radiation dose to as low as reasonable achievable. COMPARISON: CT of the abdomen and pelvis, 05/02/2017 FINDINGS: Limited imaging of the bilateral lung bases demonstrates a small to moderate sized pericardial effusion, similar to the previous study. Abdomen: There is a small amount of free fluid throughout the upper abdomen. There is a small amount of free air throughout the upper abdomen. The gallbladder has been removed. The liver, spleen, pancreas, bilateral adrenal glands and bilateral kidneys show no definitive evidence of acute abnormality. The bilateral kidneys are atrophic and contain multiple cysts. There is a small to moderate amount of free fluid throughout the abdomen. There are a few loops of mildly prominent fluid-filled small bowel. No definitive evidence of bowel obstruction. Several linear radiode nsities are again noted within the ileum as demonstrated on the previous study. Target-like calcifications measuring 2.7 cm are again noted within the ascending colon. Pelvis: There is moderate diverticulosis of the distal and sigmoid colon. A peritoneal dialysis catheter is limited within the pelvis. There is a small amount of free pelvic fluid. The urinary bladder appears grossly normal. Bones and Soft Tissues: Evaluation of bony structures demonstrates no evidence of acute bony abnormality. Evaluation of soft tissue structures demonstrates no evidence of acute soft tissue abnormality. IMPRESSION: 1. Scattered amounts of free air within the anterior abdomen which is of indeterminate etiology. Free air could potentially be related to peritoneal dialysis although this is not definitive. 2. Small to moderate amount of abdominopelvic ascites which may be secondary to peritoneal dialysis. 3. Several linear radiodensities are again noted within the ileum that are unchanged from the previous study. These could potentially be secondary to ingested foreign body or retained surgical foreign body. 4. Multiple scattered sigmoid diverticula are noted. No definitive evidence of diverticulitis. A perforated diverticula could also potentially be a source of free air. - Medical Decision Making This patient presents with a four-day history of some abdominal pain. Patient's labs have been mostly unremarkable except for the renal insufficiency consistent with his end-stage renal disease. He has some hypertension but otherwise his vital signs have been reassuring without any fever or tachycardia. His abdomen is slightly distended and he has some generalized abdominal pain to palpation but does not appear to have any peritoneal signs. CT of the abdomen and pelvis without contrast shows some scattered free air without known etiology, mild to moderate ascites, and some diverticulosis without diverticulitis. General surgery was contacted and consulted and recommendations have been placed in the chart. Patient will be admitted to the hospital and was accepted for admission by the hospitalist, Dr. Urena. Critical Care Time: Yes Critical care time in (mins) excluding proc time.: 35 Critical care attestation.: If time is entered above; I have spent that time in minutes in the direct care of this critically ill patient, excluding procedure time. Critical care time was spent on this patient in doing his initial evaluation, multiple re- evaluations, ordering and interpretation of labs and imaging, discussion with general surgery on-call, multiple discussions with the patient. Critical Care Time: 35 minutes ED Disposition Clinical Impression: Free intraperitoneal air, ESRD on peritoneal dialysis, Intractable abdominal pain Disposition: OP ADMIT IP TO THIS HOSP Is pt being admited?: No Condition: Serious Time of Disposition: 02:04
[2020-04-18] MEDS ORDERED: cefTRIAXone/NS 1 GM/50 ML 1 GM/50 ML BAG IV ONE (01:57)
[2020-04-18] MEDS ORDERED: hydrALAZINE 20 MG/1 ML INJ IV ONE (02:07)
[2020-04-18] MEDS ORDERED: MORPHINE 4 MG/1 ML INJ IV ONE (02:07)
[2020-04-18] MEDS ORDERED: ACETAMINOPHEN 325 MG TAB PO PRN (02:24)
[2020-04-18] MEDS ORDERED: ONDANSETRON 4 MG/2 ML INJ IV PRN (02:24)
--- NOTE | 2020-04-18 02:32 | History and Physical Report ---
History of Present Illness Date of examination: 04/18/20 Date of admission: 04/18/2020 Chief complaint: Abdominal Pain History of present illness: Patient is a 59-year-old male with known history of congestive heart failure, GERD, Crohn's disease, end-stage renal disease on peritoneal dialysis, hypertension, presenting to the emergency room today complaining of generalized abdominal pain. Abdominal pain is been ongoing for about 4 days.. Patient states he was a little constipated but has since had a bowel movement, denies any fever or chills, had some nausea but no vomiting, denies any diarrhea. He denies any bright red blood per rectum, and denies any melena. Patient follows up with Dr. Scherer.. Patient admits that that he has had history of bowel perforation in the past and the pain he has today feels similar to the pain he had at that time. Work-up in the emergency room today including CT of the abdomen and pelvis shows free air and some ascites. General surgeon Dr. Pollock has been consulted by the ER physician and recommendation is to make patient n.p.o. patient will be promptly evaluated. Past History Past Medical History: ESRD, GERD, heart failure, hypertension, other (Crohn's Disease) Past Surgical History: appendectomy (2007), cholecystectomy (1998) Social history: no significant social history Family history: no significant family history Medications and Allergies Allergies Allergy/AdvReac Type Severity Reaction Status Date / Time No Known Allergies Allergy Verified 07/08/18 12:03 Home Medications Medication Instructions Recorded Confirmed Last Taken Type Famotidine [Pepcid] 20 mg PO DAILY #30 tablet 06/12/15 03/15/16 03/14/16 09:00 Rx Furosemide [Lasix TAB] 20 mg PO QDAY #30 tablet 10/03/15 03/15/16 03/14/16 09:00 Rx amLODIPine 10 mg PO QDAY #30 tablet 10/03/15 03/15/16 03/14/16 09:00 Rx carvediloL [Coreg] 12.5 mg PO BID #60 tablet 10/03/15 03/15/16 03/15/16 09:00 Rx hydrALAZINE [Apresoline TAB] 100 mg PO TID #90 tab 10/03/15 03/15/16 03/14/16 09:00 Rx oxyCODONE /ACETAMINOPHEN [Percocet 1 - 2 tab PO Q4HR PRN #40 tab 03/15/16 Unknown Rx 5/325 mg] Albuterol Mdi (or & Nicu Only) 2 puff IH QID PRN #1 inhalation 04/01/17 Unknown Rx [ProAir HFA Inhaler] Azithromycin [Zithromax Z-ANGEL] 250 mg PO DAILY #5 tablet 04/01/17 Unknown Rx predniSONE [Deltasone] 20 mg PO BID #10 tab 04/01/17 Unknown Rx Dicyclomine [Bentyl] 10 mg PO QID #40 capsule 05/02/17 Unknown Rx Cyclobenzaprine HCl [Flexeril 5 MG 5 mg PO TID PRN #30 tab 09/23/17 Unknown Rx TAB] Methocarbamol [Robaxin-750] 750 mg PO Q6HR PRN #20 tablet 07/08/18 Unknown Rx predniSONE [Prednisone] 50 mg PO DAILY #5 tablet 07/08/18 Unknown Rx traMADoL [Ultram] 50 mg PO Q6HR PRN #7 tablet 07/08/18 Unknown Rx Review of Systems Constitutional: no fever, no chills Ears, nose, mouth and throat: no nasal congestion, no sore throat Cardiovascular: no chest pain, no palpitations Respiratory: no cough, no shortness of breath Gastrointestinal: abdominal pain, no nausea, no vomiting, no diarrhea Genitourinary Male: no dysuria, no hematuria, no flank pain Musculoskeletal: no neck pain, no low back pain Integumentary: no rash, no pruritis Neurological: no headaches, no confusion Psychiatric: no anxiety, no depression Exam - Constitutional Vitals: Temp Pulse Resp BP Pulse Ox 99.2 F 91 H 22 177/119 95 04/17/20 21:12 04/17/20 21:12 04/17/20 21:12 04/17/20 21:12 04/17/20 21:12 General appearance: Present: no acute distress, well-nourished - EENT Eyes: Present: PERRL, EOM intact ENT: hearing intact, clear oral mucosa, dentition normal - Neck Neck: Present: supple, normal ROM - Respiratory Respiratory effort: normal Respiratory: bilateral: CTA - Cardiovascular Rhythm: regular Heart Sounds: Present: S1 & S2. Absent: systolic murmur, diastolic murmur - Extremities Extremities: no ischemia, pulses intact, pulses symmetrical, No edema, Full ROM Peripheral Pulses: within normal limits - Abdominal General gastrointestinal: Present: soft, tender, distended, normal bowel sounds. Absent: mass - Integumentary Integumentary: Present: clear, warm, dry - Musculoskeletal Musculoskeletal: strength equal bilaterally - Psychiatric Psychiatric: appropriate mood/affect, intact judgment & insight, memory intact, cooperative - Neurologic Neurologic: CNII-XII intact, no focal deficits, moves all extremities Results - Labs CBC & Chem 7: 04/17/20 21:23 04/17/20 21:23 Labs: Abnormal lab results 04/17/20 04/17/20 Range/Units 21:23 21:23 RBC 3.24 L (3.65-5.03) M/mm3 Hgb 10.8 L (11.8-15.2) gm/dl Hct 31.8 L (35.5-45.6) % MCV 98 H (84-94) fl MCH 33 H (28-32) pg Lymph % (Auto) 11.0 L (13.4-35.0) % Luna % (Auto) 8.5 H (0.0-7.3) % Lymph # 0.7 L (1.2-5.4) K/mm3 Seg Neutrophils % 78.4 H (40.0-70.0) % Potassium 3.0 L (3.6-5.0) mmol/L Chloride 96.4 L (98-107) mmol/L BUN 49 H (9-20) mg/dL Creatinine 9.0 H (0.8-1.3) mg/dL Glucose 113 H (75-100) mg/dL Albumin 3.6 L (3.9-5) g/dL Assessment and Plan - Patient Problems (1) Intractable abdominal pain Current Visit: Yes Status: Acute Plan to address problem: Etiology is unclear. However cannot rule out bowel perforation versus peritonitis. He has been kept n.p.o. Will place on empiric IV antibiotics for possible peritonitis. General surgeon Dr. Pollock has been consulted for evaluation and recommendation. (2) ESRD on peritoneal dialysis Current Visit: Yes Status: Acute Plan to address problem: Patient does peritoneal dialysis at home. He follows up with Dr. Scherer (3) DVT prophylaxis Current Visit: No Status: Acute (4) Full code status Current Visit: Yes Status: Acute
[2020-04-18] MEDS ORDERED: ONDANSETRON 4 MG/2 ML INJ ONE (02:59)
--- NOTE | 2020-04-18 04:06 | Cat Scan Report ---
CT ABDOMEN AND PELVIS WITHOUT IV CONTRAST INDICATION: Generalized abdominal pain. Ascites. Free air. TECHNIQUE: Multiple axial CT images of the abdomen and pelvis were acquired. Sagittal and coronal ref ormats were obtained. All CT performed at this facility utilize dose reduction techniques including automated exposure control, iterative reconstruction and weight based dosing when appropriate to redu ce patient radiation dose to as low as reasonably achievable. Oral contrast was given for this evaluation. COMPARISON: CT of the abdomen and pelvis without contrast, 04/18/2020 at 12:31 AM FINDINGS: Limited imaging of the bilateral lung bases demonstrates no evidence of acute abnormality. There is a small to moderate sized pericardial effusion. Abdomen: Scattered free air is again noted throughout the anterior abdomen. There is a small to moder ate amount of ascites. The gallbladder has been removed. The liver, spleen, pancreas, bilateral adren al glands and bilateral kidneys show no definitive evidence of acute abnormality. Contrast material i s seen within the stomach and proximal small bowel. There is no evidence of small bowel obstruction. Multiple radiodensities are again noted within the ileum as described on the recent previous study. C alcified lesion is noted within the ascending colon also as described on the previous study. Pelvis: There are multiple diverticula of the distal descending and sigmoid colon. There is a small a mount of free fluid within the pelvis. Peritoneal dialysis catheter is present. Bones and Soft Tissues: Evaluation of bony structures demonstrates no evidence of acute bony abnormal ity. Evaluation of soft tissue structures demonstrates no evidence of acute soft tissue abnormality. IMPRESSION: 1. Scattered amounts of free air throughout the anterior abdomen. The cause for the free air is not i dentified on today's study with oral contrast opacifying the stomach and proximal small bowel. 2. Stable small to moderate amount of ascites. 3. Additional findings as detailed above and as described on the study performed earlier today. Signer Name: Geena Anne MD Signed: 04/18/2020 4:02 AM Workstation Name: [id number]
--- NOTE | 2020-04-18 07:55 | Event Note ---
Date: 04/18/20 This is a follow-up from an admission earlier this morning. We will continue to plan as outlined in H&P. Etiology of peritonitis is secondary to SBP/catheter associated. We will obtain cultures and monitor closely. I discussed the case with Dr. Pollock. Total visit time equals 35 minutes with greater than 50% spent on coordination of care and counseling.
--- NOTE | 2020-04-18 09:19 | Consultation ---
History of Present Illness Consult date: 04/18/20 Reason for consult: abdominal pain Chief complaint: abd pain - History of present illness History of present illness: 59-year-old male with a past medical history of end-stage renal disease on peritoneal dialysis who presents to the emergency room with 4 days of acute onset crampy abdominal pain. The patient states that the pain started at 2 AM on without any inciting factors. The pain is in his epigastrium and right lower quadrant near the PD catheter. He describes it as crampy and thro bbing. He performed peritoneal dialysis on and Saturday and noted more cloudy yellow drainage with fibrin. He states that usually the drainage is clear. He presented to the dialysis center on Saturday and underwent PD where the drainage contained fibrin and was cloudy as well. He states that he was told he was constipated and was given antibiotics to infuse through his peritoneal dialysis catheter. He was also asked to purchase stool softeners and laxatives to help him move his bowels. Patient states he is never had symptoms like this before since starting peritoneal dialysis in November of this year. He denies fevers or chills, chest pain, shortness of breath. He has had 1 small bowel movement but states he is not passing flatus. He states that he is very hungry. He had a few episodes of emesis when the pain first started which have now resolved. Past History Past Medical History: ESRD, GERD, heart failure, hypertension, other (Crohn's Disease) Past Surgical History: appendectomy (2007), cholecystectomy (1998), Other (Peritoneal dialysis catheter) Social history: no significant social history Family history: no significant family history Medications and Allergies Allergies Allergy/AdvReac Type Severity Reaction Status Date / Time No Known Allergies Allergy Verified 07/08/18 12:03 Home Medications Medication Instructions Recorded Confirmed Last Taken Type Famotidine [Pepcid] 20 mg PO DAILY #30 tablet 06/12/15 03/15/16 03/14/16 09:00 Rx Furosemide [Lasix TAB] 20 mg PO QDAY #30 tablet 10/03/15 03/15/16 03/14/16 09:00 Rx amLODIPine 10 mg PO QDAY #30 tablet 10/03/15 03/15/16 03/14/16 09:00 Rx carvediloL [Coreg] 12.5 mg PO BID #60 tablet 10/03/15 03/15/16 03/15/16 09:00 Rx hydrALAZINE [Apresoline TAB] 100 mg PO TID #90 tab 10/03/15 03/15/16 03/14/16 09 :00 Rx oxyCODONE /ACETAMINOPHEN [Percocet 1 - 2 tab PO Q4HR PRN #40 tab 03/15/16 Unknown Rx 5/325 mg] Albuterol Mdi (or & Nicu Only) 2 puff IH QID PRN #1 inhalation 04/01/17 Unknown Rx [ProAir HFA Inhaler] Azithromycin [Zithromax Z-ANGEL] 250 mg PO DAILY #5 tablet 04/01/17 Unknown Rx predniSONE [Deltasone] 20 mg PO BID #10 tab 04/01/17 Unknown Rx Dicyclomine [Bentyl] 10 mg PO QID #40 capsule 05/02/17 Unknown Rx Cyclobenzaprine HCl [Flexeril 5 MG 5 mg PO TID PRN #30 tab 09/23/17 Unknown Rx TAB] Methocarbamol [Robaxin-750] 750 mg PO Q6HR PRN #20 tablet 07/08/18 Unknown Rx predniSONE [Prednisone] 50 mg PO DAILY #5 tablet 07/08/18 Unknown Rx traMADoL [Ultram] 50 mg PO Q6HR PRN #7 tablet 07/08/18 Unknown Rx Active Meds: Active Medications Acetaminophen (Tylenol) 650 mg PO Q4H PRN PRN Reason: Pain MILD(1-3)/Fever >100.5/HULL Ceftriaxone Sodium (Rocephin/Ns 1 Gm/50 Ml) 1 gm in 50 mls @ 100 mls/hr IV Q24HR [facility]; Protocol Morphine Sulfate (Morphine) 2 mg IV Q4H PRN PRN Reason: Pain, Moderate (4-6) Ondansetron HCl (Zofran) 4 mg IV Q8H PRN PRN Reason: Nausea And Vomiting Last Admin: 04/18/20 03:01 Dose: 4 mg Documented by: Sodium Chloride (Sodium Chloride Flush Syringe 10 Ml) 10 ml IV BID [facility] Sodium Chloride (Sodium Chloride Flush Syringe 10 Ml) 10 ml IV PRN PRN PRN Reason: LINE FLUSH Review of Systems All systems: negative (10 point ROS performed and negative except for that listed in HPI) Exam Vital Signs Temp Pulse Resp BP Pulse Ox 99.2 F 91 H 18 177/119 95 04/17/20 19:39 04/17/20 19:39 04/17/20 19:39 04/17/20 19:39 04/17/20 19:39 Narrative exam: Gen.: Awake, alert, oriented 3. No apparent distress ENT: Trachea midline. No lymphadenopathy. No scleral icterus or conjunctival pallor CV: S1, S2 present Respiratory: No audible wheezes Abdomen: Soft, distended, ascites, tender to palpation in the epigastrium, right upper quadrant and right lower quadrant. PD catheter located in the right lower quadrant. Well-healed abdominal surgical scars. No rebound, rigidity, guarding Extremities: No clubbing, cyanosis, edema Results - Labs 04/17/20 21:23 04/17/20 21:23 Abnormal lab results 04/17/20 04/17/20 Range/Units 21:23 21:23 RBC 3.24 L (3.65-5.03) M/mm3 Hgb 10.8 L (11.8-15.2) gm/dl Hct 31.8 L (35.5-45.6) % MCV 98 H (84-94) fl MCH 33 H (28-32) pg Lymph % (Auto) 11.0 L (13.4-35.0) % Bay % (Auto) 8.5 H (0.0-7.3) % Lymph # 0.7 L (1.2-5.4) K/mm3 Seg Neutrophils % 78.4 H (40.0-70.0) % Potassium 3.0 L (3.6-5.0) mmol/L Chloride 96.4 L (98-107) mmol/L BUN 49 H (9-20) mg/dL Creatinine 9.0 H (0.8-1.3) mg/dL Glucose 113 H (75-100) mg/dL Albumin 3.6 L (3.9-5) g/dL Diabetes panel 04/17/20 Range/Units 21:23 Sodium 143 (137-145) mmol/L Potassium 3.0 L (3.6-5.0) mmol/L Chloride 96.4 L (98-107) mmol/L Carbon Dioxide 30 (22-30) mmol/L BUN 49 H (9-20) mg/dL Creatinine 9.0 H (0.8-1.3) mg/dL Glucose 113 H (75-100) mg/dL Calcium 9.6 (8.4-10.2) mg/dL AST 25 (5-40) units/L ALT 7 (7-56) units/L Alkaline Phosphatase 102 (35-129) units/L Total Protein 7.2 (6.3-8.2) g/dL Albumin 3.6 L (3.9-5) g/dL Calcium panel 04/17/20 Range/Units 21:23 Calcium 9.6 (8.4-10.2) mg/dL Albumin 3.6 L (3.9-5) g/dL Pituitary panel 04/17/20 Range/Units 21:23 Sodium 143 (137-145) mmol/L Potassium 3.0 L (3.6-5.0) mmol/L Chloride 96.4 L (98-107) mmol/L Carbon Dioxide 30 (22-30) mmol/L BUN 49 H (9-20) mg/dL Creatinine 9.0 H (0.8-1.3) mg/dL Glucose 113 H (75-100) mg/dL Calcium 9.6 (8.4-10.2) mg/dL Adrenal panel 04/17/20 Range/Units 21:23 Sodium 143 (137-145) mmol/L Potassium 3.0 L (3.6-5.0) mmol/L Chloride 96.4 L (98-107) mmol/L Carbon Dioxide 30 (22-30) mmol/L BUN 49 H (9-20) mg/dL Creatinine 9.0 H (0.8-1.3) mg/dL Glucose 113 H (75-100) mg/dL Calcium 9.6 (8.4-10.2) mg/dL Total Bilirubin 0.70 (0.1-1.2) mg/dL AST 25 (5-40) units/L ALT 7 (7-56) units/L Alkaline Phosphatase 102 (35-129) units/L Total Protein 7.2 (6.3-8.2) g/dL Albumin 3.6 L (3.9-5) g/dL - Imaging CT scan - abdomen: report reviewed, image reviewed CT scan - pelvis: report reviewed, image reviewed Assessment and Plan 59 yo M with abdominal pain, on peritoneal dialysis Ct A/P with oral contrast - small amount of free air, moderate ascites, no extravasation of oral contrast Pt stable. VSS and WBC normal. His history is suggestive of SBP. Small amount of free air likely due to PD. Patient has no evidence of peritoneal signs on exam to suggest a perforated viscus. Plan: 1. ok to start CLD 2. IV abx 3. consult ID 4. obtain peritoneal fluid and send for cx and cytology 5. prn pain control 6. nephro consulted 7. repeat CBC in am Will follow. Thank you, please call with questions. D/W Dr. Rowley
[2020-04-18] MEDS ORDERED: cefTRIAXone/NS 1 GM/50 ML 1 GM/50 ML BAG IV SCH (10:00)
[2020-04-18] MEDS ORDERED: DIALYSATE PD2 1.5% SOLN 2000 ML IP SCH (13:00)
--- NOTE | 2020-04-18 13:03 | Consultation ---
History of Present Illness - Reason for Consult Consult date: 04/18/20 end stage renal disease - History of Present Illness This is a 59-year-old -Cypriot man with known history of end-stage renal disease, congestive heart failure of unknown ejection fraction, GERD, Crohn's disease, hypertension, who presented to the emergency department with abdominal pain. He states that the abdominal pain started about 4 days ago, is diffuse and with no exacerbating or alleviating factors. He last had a bowel movement this morning. He notes episode of emesis 4 days ago but has not had any since then. He was started on dialysis in 2018. He was initiated on PD which was then briefly placed on hold for 6 weeks due to hernia surgery. Following that he went back on peritoneal dialysis again and has been on it since then. He denies any episodes of peritonitis. He notes that the dialysate has been cloudy for the past 4 days. Past History Past Medical History: ESRD, GERD, heart failure, hypertension, other (Crohn's Disease) Past Surgical History: appendectomy (2007), cholecystectomy (1998), Other (Peritoneal dialysis catheter) Social history: no significant social history Family history: no significant family history Medications and Allergies Allergies Allergy/AdvReac Type Severity Reaction Status Date / Time No Known Allergies Allergy Verified 07/08/18 12:03 Home Medications Medication Instructions Recorded Confirmed Last Taken Type Famotidine [Pepcid] 20 mg PO DAILY #30 tablet 06/12/15 03/15/16 03/14/16 09:00 Rx Furosemide [Lasix TAB] 20 mg PO QDAY #30 tablet 10/03/15 03/15/16 03/14/16 09:00 Rx amLODIPine 10 mg PO QDAY #30 tablet 10/03/15 03/15/16 03/14/16 09:00 Rx carvediloL [Coreg] 12.5 mg PO BID #60 tablet 10/03/15 03/15/16 03/15/16 09:00 Rx hydrALAZINE [Apresoline TAB] 100 mg PO TID #90 tab 10/03/15 03/15/16 03/14/16 09:00 Rx oxyCODONE /ACETAMINOPHEN [Percocet 1 - 2 tab PO Q4HR PRN #40 tab 03/15/16 Unknown Rx 5/325 mg] Albuterol Mdi (or & Nicu Only) 2 puff IH QID PRN #1 inhalation 04/01/17 Unknown Rx [ProAir HFA Inhaler] Azithromycin [Zithromax Z-ANGEL] 250 mg PO DAILY #5 tablet 04/01/17 Unknown Rx predniSONE [Deltasone] 20 mg PO BID #10 tab 04/01/17 Unknown Rx Dicyclomine [Bentyl] 10 mg PO QID #40 capsule 05/02/17 Unknown Rx Cyclobenzaprine HCl [Flexeril 5 MG 5 mg PO TID PRN #30 tab 09/23/17 Unknown Rx TAB] Methocarbamol [Robaxin-750] 750 mg PO Q6HR PRN #20 tablet 07/08/18 Unknown Rx predniSONE [Prednisone] 50 mg PO DAILY #5 tablet 07/08/18 Unknown Rx traMADoL [Ultram] 50 mg PO Q6HR PRN #7 tablet 07/08/18 Unknown Rx Active Meds: Active Medications Acetaminophen (Tylenol) 650 mg PO Q4H PRN PRN Reason: Pain MILD(1-3)/Fever >100.5/HULL Ceftriaxone Sodium (Rocephin/Ns 1 Gm/50 Ml) 1 gm in 50 mls @ 100 mls/hr IV Q24HR [facility]; Protocol Last Admin: 04/18/20 10:13 Dose: 100 mls/hr Documented by: Morphine Sulfate (Morphine) 2 mg IV Q4H PRN PRN Reason: Pain, Moderate (4-6) Ondansetron HCl (Zofran) 4 mg IV Q8H PRN PRN Reason: Nausea And Vomiting Last Admin: 04/18/20 03:01 Dose: 4 mg Documented by: Peritoneal Dialysis Solution (Dianeal Pd-2 W/1.5% Dextrose) 2,000 ml IP Q6HR [facility] Sodium Chloride (Sodium Chloride Flush Syringe 10 Ml) 10 ml IV BID [facility] Last Admin: 04/18/20 10:13 Dose: 10 ml Documented by: Sodium Chloride (Sodium Chloride Flush Syringe 10 Ml) 10 ml IV PRN PRN PRN Reason: LINE FLUSH Review of Systems Constitutional: other (denies fever and chills) Eyes: bilateral: other (denies blurred vision) Ears, nose, mouth and throat: other (denies nasal congestion or discharge) Cardiovascular: other (denies chest pain, shortness of breath) Respiratory: other (denies cough and dyspnea on exertion) Gastrointestinal: abdominal pain (denies melena and hematochezia) Rectal: other (denies rectal bleeding) Musculoskeletal: other (denies back pain and neck pain) Integumentary: other (denies itching and rash) Neurological: other (denies weakness and numbness) Psychiatric: other (denies mood swings) Endocrine: other (denies excessive thirst and cold/heat intolerance) Hematologic/Lymphatic: other (denies easy bruising) Allergic/Immunologic: other (denies wheezing) Exam - Vital Signs Vital signs: Vital Signs Temp Pulse Resp BP Pulse Ox 99.2 F 91 H 18 177/119 95 04/17/20 19:39 04/17/20 19:39 04/17/20 19:39 04/17/20 19:39 04/17/20 19:39 - General Appearance General appearance: well-developed EENT: mucous membranes moist, sclera incterus Neck: Present: neck supple, trachea midline Respiratory: Clear to Ascultation, Normal Exam Heart: regular, S1S2 Gastrointestinal: Present: normoactive bowel sounds, other (PD exit site appeared clean/dry/intact and without any signs of inflammation. No exudate noted.) Integumentary: no rash Neurologic: no focal deficit, no asterixis Musculoskeletal: Present: other (normal range of motion) Psychiatric: mood/affect appropriate Results - Lab Results 04/17/20 21:23 04/17/20 21:23 Most recent lab results Calcium 9.6 mg/dL (8.4-10.2) 04/17/20 21:23 Assessment and Plan Assessment: - ESRD on peritoneal dialysis. He has been on peritoneal dialysis for the past 2 years. He denies any history of peritonitis. - Abdominal pain. CT scan without organ perforation. Need to rule out p eritonitis. - Hypertension - Hypokalemia - Anemia of ESRD - Hyperglycemia Plan: - Check peritoneal fluid count and cultures - Needs empiric treatment with vancomycin and ceftazidime in the interim, will order IP ( 30 mg/kg Vancomycin in 1 dialysate bag every 5 days and Ceftazidime 1g in 1 dialysate bag daily - discussed with pharmacy) - Will order manual peritoneal dialysis exchange with 1.5% dialysate 4 times daily - continue home antihypertensives, goal blood pressure is less than 140/90 - Check iron studies - Keep glucose less than 200 - Check P - monitor electrolytes daily
--- NOTE | 2020-04-18 14:30 | Consultation ---
History of Present Illness - Reason for Consult Consult date: 04/18/20 Peritonitis Requesting physician: MAGDALENA PRECIADO - History of Present Illness The patient is a 59-year-old male with ESRD on PD for the last 2 years, CHF, gastroesophageal reflux disease, Crohn's disease was admitted to the hospital with generalized abdominal pain. He had been having abdominal pain for a few days and had his PD fluid sent for analysis and culture and meanwhile, was star brice on intraperitoneal Ancef and ceftazidime by his outpatient registered nurse float pool. With his pain worsening, he came to the hospital and was admitted. Infectious diseases was consulted for additional evaluation. As per my discussion with his dialysis nurse at [facility], PD fluid collected on 04/15/2020 is growing GNR. Review of Systems: General: no fevers,chills or rigors HEENT: no new visual disturbance Respiratory: No cough, sputum, hemoptysis or shortness of breath Cardiovascular: No chest pain, syncope Gastrointestinal: abdominal pain Genitourinary: No dysuria or hematuria Musculoskeletal: No new or worsening neck pain or back pain Neurologic: No headaches, seizures Hematologic: No easy bruising or bleeding Endocrine: No night sweats or acute weight loss Skin: negative for rash, jaundice Psychiatric: No suicidal or homicidal ideation Past History Past Medical History: ESRD, GERD, heart failure, hypertension, other (Crohn's Disease) Past Surgical History: appendectomy (2007), cholecystectomy (1998), Other (Peritoneal dialysis catheter) Social history: no significant social history Family history: no significant family history Medications and Allergies Allergies Allergy/AdvReac Type Severity Reaction Status Date / Time No Known Allergies Allergy Verified 07/08/18 12:03 Home Medications Medication Instructions Recorded Confirmed Last Taken Type Famotidine [Pepcid] 20 mg PO DAILY #30 tablet 06/12/15 03/15/16 03/14/16 09:00 Rx Furosemide [Lasix TAB] 20 mg PO QDAY #30 tablet 10/03/15 03/15/16 03/14/16 09:00 Rx amLODIPine 10 mg PO QDAY #30 tablet 10/03/15 03/15/16 03/14/16 09:00 Rx carvediloL [Coreg] 12.5 mg PO BID #60 tablet 10/03/15 03/15/16 03/15/16 09:00 Rx hydrALAZINE [Apresoline TAB] 100 mg PO TID #90 tab 10/03/15 03/15/16 03/14/16 09:00 Rx oxyCODONE /ACETAMINOPHEN [Percocet 1 - 2 tab PO Q4HR PRN #40 tab 03/15/16 Unknown Rx 5/325 mg] Albuterol Mdi (or & Nicu Only) 2 puff IH QID PRN #1 inhalation 04/01/17 Unknown Rx [ProAir HFA Inhaler] Azithromycin [Zithromax Z-ANGEL] 250 mg PO DAILY #5 tablet 04/01/17 Unknown Rx predniSONE [Deltasone] 20 mg PO BID #10 tab 04/01/17 Unknown Rx Dicyclomine [Bentyl] 10 mg PO QID #40 capsule 05/02/17 Unknown Rx Cyclobenzaprine HCl [Flexeril 5 MG 5 mg PO TID PRN #30 tab 09/23/17 Unknown Rx TAB] Methocarbamol [Robaxin-750] 750 mg PO Q6HR PRN #20 tablet 07/08/18 Unknown Rx predniSONE [Prednisone] 50 mg PO DAILY #5 tablet 07/08/18 Unknown Rx traMADoL [Ultram] 50 mg PO Q6HR PRN #7 tablet 07/08/18 Unknown Rx Active Meds: Active Medications Acetaminophen (Tylenol) 650 mg PO Q4H PRN PRN Reason: Pain MILD(1-3)/Fever >100.5/HULL Peritoneal Dialysis Solution 2 (,000 ml/ Ceftazidime 1 gm) 0 ml IP Q24H [facility] Peritoneal Dialysis Solution 2 ,000 ml/ Vancomycin HCl 2,500 mg 0 ml IP Tu@1200 [facility] Ceftriaxone Sodium (Rocephin/Ns 1 Gm/50 Ml) 1 gm in 50 mls @ 100 mls/hr IV Q24HR [facility]; Protocol Last Admin: 04/18/20 10:13 Dose: 100 mls/hr Documented by: Morphine Sulfate (Morphine) 2 mg IV Q4H PRN PRN Reason: Pain, Moderate (4-6) Ondansetron HCl (Zofran) 4 mg IV Q8H PRN PRN Reason: Nausea And Vomiting Last Admin: 04/18/20 03:01 Dose: 4 mg Documented by: Peritoneal Dialysis Solution (Dianeal Pd-2 W/1.5% Dextrose) 2,000 ml IP Q6HR [facility] Sodium Chloride (Sodium Chloride Flush Syringe 10 Ml) 10 ml IV BID [facility] Last Admin: 04/18/20 10:13 Dose: 10 ml Documented by: Sodium Chloride (Sodium Chloride Flush Syringe 10 Ml) 10 ml IV PRN PRN PRN Reason: LINE FLUSH Physical Examination - Physical Exam Narrative exam: Physical Exam: Constitutional: Alert, cooperative. No acute distress Head, Ears, Nose: Normocephalic, atraumatic. External ears, nose normal Eyes: Conjunctivae/corneas clear. No icterus. No ptosis. Neck: Supple, no meningeal signs Cardiovascular: S1, S2 normal. Respiratory: Good air entry, clear to auscultation bilaterally GI: Soft, mild tenderness, RLQ PD cath +, exit site clean; bowel sounds + Musculoskeletal: No pedal edema, no cyanosis. Skin: No rash or abscess Hem/Lymphatic: No palpable cervical or supraclavicular nodes. No lymphangitis Psych: Mood ok. Affect normal Neurological: Awake, alert, oriented. No gross abnormality - Constitutional Vitals: Vital Signs Temp Pulse Resp BP Pulse Ox 98.4 F 75 20 170/100 92 04/18/20 12:51 04/18/20 12:51 04/18/20 12:51 04/18/20 12:51 04/18/20 12:51 Temperature -Last 24 Hours Temperature 98.4 F Temperature 99.0 F Temperature 98.3 F Temperature 99.2 F Temperature 99.2 F Results - Labs CBC & Chem 7: 04/17/20 21:23 04/17/20 21:23 Labs: Abnormal lab results 04/17/20 04/17/20 Range/Units 21:23 21:23 RBC 3.24 L (3.65-5.03) M/mm3 Hgb 10.8 L (11.8-15.2) gm/dl Hct 31.8 L (35.5-45.6) % MCV 98 H (84-94) fl MCH 33 H (28-32) pg Lymph % (Auto) 11.0 L (13.4-35.0) % [place] % (Auto) 8.5 H (0.0-7.3) % Lymph # 0.7 L (1.2-5.4) K/mm3 Seg Neutrophils % 78.4 H (40.0-70.0) % Potassium 3.0 L (3.6-5.0) mmol/L Chloride 96.4 L (98-107) mmol/L BUN 49 H (9-20) mg/dL Creatinine 9.0 H (0.8-1.3) mg/dL Glucose 113 H (75-100) mg/dL Albumin 3.6 L (3.9-5) g/dL - Imaging and Cardiology CT scan - abdomen: report reviewed, image reviewed (ascites and small amount of air) Assessment and Plan Cultures: 04/18/2020 blood culture: In process As per my discussion with his dialysis nurse at [facility], PD fluid collected on 04/15/2020 is growing GNR. A/P: 59-year-old male with ESRD on PD for the last 2 years, CHF, gastroesophageal reflux disease, Crohn's disease was admitted to the hospital with generalized abdominal pain. Was on outpatient intraperitoneal Ancef and ceftazidime, admit brice due to worsening abdominal pain: #PD associated peritonitis: CT abdomen with a small amount of intraperitoneal air believed to be secondary to peritoneal dialysis. Outpatient PD fluid cultures growing GNR #ESRD on PD: Renally dose antibiotics. Nephrology following. Recs: Already started on intraperitoneal vancomycin and ceftazidime by nephrology. Since outpatient PD fluid cultures are growing GNR's, IP vancomycin can be dis continued Follow-up outpatient PD fluid cultures as well as cell count and cultures done here If PD fluid cultures grew a biofilm former such as Pseudomonas, he will need removal of his PD catheter Yesika Denny MD, FACP [facility] C: [phone] O: [phone] F: [phone]
[2020-04-18 14:55] LABS: Total Cells Counted 100 /mm3
[2020-04-18] MEDS: [UNRECOGNIZED DRUG - OTHER] IP SCH (23:12)
[2020-04-18] MEDS: CEFTAZIDIME 1 GM IP SCH (23:12)
[2020-04-18] MEDS: MORPHINE 2 MG/1 ML INJ IV PRN (23:39)
[2020-04-19] MEDS: DIALYSATE PD2 1.5% SOLN 2000 ML IP SCH ×3 (01:06→11:59)
[2020-04-19] MEDS: MORPHINE 2 MG/1 ML INJ IV PRN ×2 (05:02→09:08)
--- NOTE | 2020-04-19 10:56 | Progress Note ---
Subjective Date of service: 04/19/20 Interval history: Patient is a 59-year-old male with known history of congestive heart failure, GERD, Crohn's disease, end-stage renal disease on peritoneal dialysis, hypertension, presenting to the emergency room today complaining of generalized abdominal pain. Abdominal pain is been ongoing for about 4 days.. Patient states he was a little constipated but has since had a bowel movement, denies any fever or chills, had some nausea but no vomiting, denies any diarrhea. He denies any bright red blood per rectum, and denies any melena. Patient follows up with Dr. Scherer.. Patient admits that that he has had history of bowel perforation in the past and the pain he has today feels similar to the pain he had at that time. Work-up in the emergency room today including CT of the abdomen and pelvis shows free air and some ascites. General surgeon Dr. Pollock has been consulted by the ER physician and recommendation is to make patient n.p.o. patient will be promptly evaluated. 04/19 Patient is A&O, NAD, c/o abd. pain. denies f/c/N/V or diarrhea. Denies CP or sob. ID, nephrology and gen. surgery notes reviewed. no new lab results available. lab results from 04/17 reviewed A/P: ESRD on peritoneal dialysis since 2018 nephrology following PD catheter associated peritonitis Peritoneal fluid cultures positive for GNR Isolation and sensitivity pending Cont. ceftazidine via PD catheter ID note reviewed Vancomycin stopped Hypertension: poorly controlled medications adjusted Normocytic anemia H/H stable Hx of Crohn's disease not on medication GERD start on pepcid Hypokalemia Patient has ESRD Nephrology is following cont. per nephro. recommendations Objective - Constitutional Vitals: Vital Signs - 12hr 04/19/20 05:04 Temperature 98.7 F Pulse Rate 73 Respiratory 22 Rate Blood Pressure 168/94 O2 Sat by Pulse 88 Oximetry General appearance: Present: no acute distress - EENT Eyes: PERRL, EOM intact ENT: hearing intact - Neck Neck: supple, normal ROM - Respiratory Respiratory effort: normal Respiratory: bilateral: CTA - Cardiovascular Rhythm: regular Heart Sounds: Present: S1 & S2 Extremities: No edema - Gastrointestinal General gastrointestinal: Present: soft, tender Rectal Exam: deferred - Labs CBC & Chem 7: 04/19/20 10:40 04/19/20 10:40
[2020-04-19 11:11] LABS: Basophils % (Auto) 0.5 % (0.0-1.8); Eosinophils # (Auto) 0.3 K/mm3 (0.0-0.4); Eosinophils % (Auto) 5.4 % (0.0-4.3); Hematocrit 25.9 % (35.5-45.6); Hemoglobin 8.9 gm/dl (11.8-15.2); Lymphocytes # (Auto) 0.8 K/mm3 (1.2-5.4); Lymphocytes % (Auto) 11.7 % (13.4-35.0); Mean Corpuscular HGB Conc 34 % (32-34); Mean Corpuscular Volume 98 fl (84-94); Monocytes # (Auto) 0.4 K/mm3 (0.0-0.8); Platelet Count 182 K/mm3 (140-440); Red Blood Count 2.65 M/mm3 (3.65-5.03); Red Cell Distribution Width 14.4 % (13.2-15.2)
[2020-04-19 11:25] LABS: Calcium 8.7 mg/dL (8.4-10.2)
[2020-04-19] MEDS ORDERED: [UNRECOGNIZED DRUG - OTHER] IP SCH ×2 (12:00)
[2020-04-19] MEDS ORDERED: VANCOMYCIN IP SCH ×2 (12:00)
[2020-04-19 12:27] LABS: INR 1.2 (0.87-1.13)
--- NOTE | 2020-04-19 14:17 | Progress Note ---
Assessment and Plan Cultures: 04/18/2020 blood culture: no growth 04/18/2020 PD fluid culture: GNR As per my discussion with his dialysis nurse at [facility], PD fluid collected on 04/15/2020 also growing GNR. A/P: 59-year-old male with ESRD on PD for the last 2 years, CHF, gastroesophageal reflux disease, Crohn's disease was admitted to the hospital with generalized abdominal pain. Was on outpatient intraperitoneal Ancef and ceftazidime, admitted due to worsening abdominal pain: #PD associated peritonitis: CT abdomen with a small amount of intraperitoneal air believed to be secondary to peritoneal dialysis. Outpatient and inpatient PD fluid cultures growing GNR. PD fluid with 600+ WBC, mainly PMNs. #ESRD on PD: Renally dose antibiotics. Nephrology following. Recs: continue IP Ceftazidime If PD fluid cultures grow a biofilm former such as Pseudomonas, he will need removal of his PD catheter If symptoms and cell count do not improve in spite of abx, he might need a washout and PD cath removal Yesika Denny MD, FACP [facility] ([facility] C: [phone] O: [phone] F: [phone] Subjective Date of service: 04/19/20 Interval history: No fever. Complaining of abdominal pain, including around his catheter. States he didn't eat yesterday, hungry today. Objective - Exam Narrative Exam: Physical Exam: Constitutional: Alert, cooperative. No acute distress Head, Ears, Nose: Normocephalic, atraumatic. External ears, nose normal Eyes: Conjunctivae/corneas clear. No icterus. No ptosis. Neck: Supple, no meningeal signs Cardiovascular: S1, S2 normal. Respiratory: Good air entry, clear to auscultation bilaterally GI: Soft, tenderness, RLQ PD cath +, exit site clean; bowel sounds + Musculoskeletal: No pedal edema, no cyanosis. Skin: No rash or abscess Hem/Lymphatic: No palpable cervical or supraclavicular nodes. No lymphangitis Psych: Mood ok. Affect normal Neurological: Awake, alert, oriented. No gross abnormality - Constitutional Vitals: Vital Signs Temp Pulse Resp BP Pulse Ox 98.7 F 73 22 168/94 88 04/19/20 05:04 04/19/20 05:04 04/19/20 05:04 04/19/20 05:04 04/19/20 05:04 Temperature -Last 24 Hours Temperature 98.7 F Temperature 98.9 F - Labs CBC & Chem 7: 04/19/20 10:40 04/19/20 10:40 Labs: Abnormal lab results 04/19/20 04/19/20 04/19/20 Range/Units 10:40 10:40 10:40 RBC 2.65 L (3.65-5.03) M/mm3 Hgb 8.9 L (11.8-15.2) gm/dl Hct 25.9 L (35.5-45.6) % MCV 98 H (84-94) fl MCH 33 H (28-32) pg Lymph % (Auto) 11.7 L (13.4-35.0) % Eos % (Auto) 5.4 H (0.0-4.3) % Lymph # 0.8 L (1.2-5.4) K/mm3 Seg Neutrophils % 75.4 H (40.0-70.0) % PT 15.5 H (12.2-14.9) Sec. INR 1.20 H (0.87-1.13) Potassium 3.1 L (3.6-5.0) mmol/L Carbon Dioxide 32 H (22-30) mmol/L BUN 50 H (9-20) mg/dL Creatinine 9.5 H (0.8-1.3) mg/dL Glucose 109 H (75-100) mg/dL
--- NOTE | 2020-04-19 14:49 | Progress Note ---
Assessment and Plan 59 yo M with abdominal pain, on peritoneal dialysis Ct A/P with oral contrast - small amount of free air, moderate ascites, no extravasation of oral contrast Pt stable. VSS and WBC normal. His history is suggestive of SBP. Small amount of free air likely due to PD. Patient has no evidence of peritoneal signs on exam to suggest a perforated viscus. Peritoneal fluid is growing gram-negative rods, greater than 600 white blood cells Plan: 1. Renal diet 2. Antibiotics per ID 3. PRN pain control 4. Await final cultures We will follow peripherally. Please call if patient needs PD catheter removed. I did discuss this possibility with the patient and he states that he does not want to go back on hemodialysis but he understands. Thank you for this consultation. Please call with any questions or concerns. Subjective Date of service: 04/19/20 Narrative: Patient seen and examined. He complains of abdominal pain due to hunger. He states that the clear liquid diet was not enough for him and he wants regular food. No nausea or vomiting. He still complains of abdominal pain which is present primarily around the PD catheter site in the right lower abdomen. No fevers or chills. Objective Vital Signs - 12hr 04/19/20 05:04 Temperature 98.7 F Pulse Rate 73 Respiratory 22 Rate Blood Pressure 168/94 O2 Sat by Pulse 88 Oximetry - General physical appearance Narrative Exam: Gen.: Awake, alert, oriented 3. No apparent distress ENT: Trachea midline. No lymphadenopathy. No scleral icterus or conjunctival pallor CV: S1, S2 present Respiratory: No audible wheezes Abdomen: Soft, mildly distended, mild tenderness to palpation right lower quadrant near peritoneal dialysis catheter. No rebound, rigidity, guarding Extremities: No clubbing, cyanosis, edema - Labs 04/19/20 10:40 04/19/20 10:40 Diabetes panel 04/19/20 Range/Units 10:40 Sodium 141 (137-145) mmol/L Potassium 3.1 L (3.6-5.0) mmol/L Chloride 98.0 (98-107) mmol/L Carbon Dioxide 32 H (22-30) mmol/L BUN 50 H (9-20) mg/dL Creatinine 9.5 H (0.8-1.3) mg/dL Glucose 109 H (75-100) mg/dL Calcium 8.7 (8.4-10.2) mg/dL Calcium panel 04/19/20 Range/Units 10:40 Calcium 8.7 (8.4-10.2) mg/dL Pituitary panel 04/19/20 Range/Units 10:40 Sodium 141 (137-145) mmol/L Potassium 3.1 L (3.6-5.0) mmol/L Chloride 98.0 (98-107) mmol/L Carbon Dioxide 32 H (22-30) mmol/L BUN 50 H (9-20) mg/dL Creatinine 9.5 H (0.8-1.3) mg/dL Glucose 109 H (75-100) mg/dL Calcium 8.7 (8.4-10.2) mg/dL Adrenal panel 04/19/20 Range/Units 10:40 Sodium 141 (137-145) mmol/L Potassium 3.1 L (3.6-5.0) mmol/L Chloride 98.0 (98-107) mmol/L Carbon Dioxide 32 H (22-30) mmol/L BUN 50 H (9-20) mg/dL Creatinine 9.5 H (0.8-1.3) mg/dL Glucose 109 H (75-100) mg/dL Calcium 8.7 (8.4-10.2) mg/dL
[2020-04-19] MEDS: [UNRECOGNIZED DRUG - OTHER] IP SCH (17:50)
[2020-04-19] MEDS: CEFTAZIDIME 1 GM IP SCH (17:50)
--- NOTE | 2020-04-19 19:38 | Progress Note ---
Assessment and Plan Assessment: - ESRD on peritoneal dialysis. He has been on peritoneal dialysis for the past 2 years. He denies any prior history of peritonitis. - Abdominal pain. CT scan without organ perforation. Due to peritonitis. Improving with antibiotics. - Peritonitis, peritoneal fluid cultures growing gram-negative rods. Speciation pending. - Hypertension - Hypokalemia - Anemia of ESRD - Hyperglycemia Plan: - Follow cultures - Discontinue vancomycin - Continue ceftazidime daily for 7 days - continue manual peritoneal dialysis exchange with 1.5% dialysate 4 times daily - continue home antihypertensives, goal blood pressure is less than 140/90 - disposition: results were discussed with the patient and his dialysis nurse. Patient can be discharged tomorrow morning from renal standpoint. If discharged he is to go tomorrow to the dialysis unit to collect the antibiotics as arranged. Cultures that were obtained at the dialysis unit over the weekend will be followed for speciation and adjustment of antibiotics appropriately. Subjective Date of service: 04/19/20 Principal diagnosis: peritonitis Interval history: He is tolerating manual dialysis well. Abdominal pain improved. Objective - Exam Narrative Exam: General appearance: well-developed EENT: mucous membranes moist, sclera incterus Neck: Present: neck supple, trachea midline Respiratory: Clear to Ascultation, Normal Exam Heart: regular, S1S2 Gastrointestinal: Present: normoactive bowel sounds, other (PD exit site appeared clean/dry/intact and without any signs of inflammation. No exudate noted.) Integumentary: no rash Neurologic: no focal deficit, no asterixis Musculoskeletal: Present: other (normal range of motion) Psychiatric: mood/affect appropriate - Vital Signs Vital signs: Vital Signs - 12hr 04/19/20 16:00 Temperature 98.5 F Pulse Rate 70 Respiratory 19 Rate Blood Pressure 164/96 [Left] O2 Sat by Pulse 93 Oximetry - Lab 04/19/20 10:40 04/19/20 10:40 Most recent lab results Calcium 8.7 mg/dL (8.4-10.2) 04/19/20 10:40 Medications & Allergies - Medications Allergies/Adverse Reactions: Allergies No Known Allergies Allergy (Verified 07/08/18 12:03) Home Medications: Home Medications Medication Instructions Recorded Confirmed Last Taken Type Famotidine [Pepcid] 20 mg PO DAILY #30 tablet 06/12/15 03/15/16 03/14/16 09:00 Rx Furosemide [Lasix TAB] 20 mg PO QDAY #30 tablet 10/03/15 03/15/16 03/14/16 09:00 Rx amLODIPine 10 mg PO QDAY #30 tablet 10/03/15 03/15/16 03/14/16 09:00 Rx carvediloL [Coreg] 12.5 mg PO BID #60 tablet 10/03/15 03/15/16 03/15/16 09:00 Rx hydrALAZINE [Apresoline TAB] 100 mg PO TID #90 tab 10/03/15 03/15/16 03/14/16 09:00 Rx oxyCODONE /ACETAMINOPHEN [Percocet 1 - 2 tab PO Q4HR PRN #40 tab 03/15/16 Unknown Rx 5/325 mg] Albuterol Mdi (or & Nicu Only) 2 puff IH QID PRN #1 inhalation 04/01/17 Unknown Rx [ProAir HFA Inhaler] Azithromycin [Zithromax Z-ANGEL] 250 mg PO DAILY #5 tablet 04/01/17 Unknown Rx predniSONE [Deltasone] 20 mg PO BID #10 tab 04/01/17 Unknown Rx Dicyclomine [Bentyl] 10 mg PO QID #40 capsule 05/02/17 Unknown Rx Cyclobenzaprine HCl [Flexeril 5 MG 5 mg PO TID PRN #30 tab 09/23/17 Unknown Rx TAB] Methocarbamol [Robaxin-750] 750 mg PO Q6HR PRN #20 tablet 07/08/18 Unknown Rx predniSONE [Prednisone] 50 mg PO DAILY #5 tablet 07/08/18 Unknown Rx traMADoL [Ultram] 50 mg PO Q6HR PRN #7 tablet 07/08/18 Unknown Rx Active Medications: Generic Name Dose Route Start Last Admin Trade Name Freq PRN Reason Stop Dose Admin Acetaminophen 650 mg 04/18/20 02:24 Tylenol PO Q4H PRN Pain MILD(1-3)/Fever >100.5/HULL Peritoneal Dialysis Solution 2 0 ml 04/18/20 18:00 04/19/20 17:50 ,000 ml/ Ceftazidime 1 gm IP 2,000 ml Q24H THOMAS Administration Morphine Sulfate 2 mg 04/18/20 02:24 04/19/20 09:08 Morphine IV 2 mg Q4H PRN Administration Pain, Moderate (4-6) Ondansetron HCl 4 mg 04/18/20 02:24 04/18/20 03:01 Zofran IV 4 mg Q8H PRN Administration Nausea And Vomiting Peritoneal Dialysis Solution 2,000 ml 04/19/20 00:00 04/19/20 11:59 Dianeal Pd-2 W/1.5% Dextrose IP 2,000 ml 0000,0600,1200 THOMAS Administration Sodium Chloride 10 ml 04/18/20 10:00 04/19/20 09:09 Sodium Chloride Flush Syringe 10 Ml IV 10 ml BID THOMAS Administration Sodium Chloride 10 ml 04/18/20 02:24 Sodium Chloride Flush Syringe 10 Ml IV PRN PRN LINE FLUSH
[2020-04-19] MEDS ORDERED: hydrALAZINE 20 MG/1 ML INJ IV ONE (22:50)
[2020-04-19] MEDS ORDERED: cloNIDine 0.2 MG TAB PO ONE (23:45)
[2020-04-20] MEDS: DIALYSATE PD2 1.5% SOLN 2000 ML IP SCH ×2 (00:24→06:31)
[2020-04-20 07:55] VITALS: BP 159/80
[2020-04-20] MEDS ORDERED: hydrALAZINE 100 MG TAB PO SCH (08:00)
--- NOTE | 2020-04-20 08:17 | Progress Note ---
Assessment and Plan Assessment: - ESRD on peritoneal dialysis. He has been on peritoneal dialysis for the past 2 years. He denies any prior history of peritonitis. He is undergoing manual exchanges in the hospital. - Abdominal pain. CT scan without organ perforation. Due to peritonitis. Improving with antibiotics. status post 1 dose of vancomycin, discontinued. Now only on ceftazidime. - Peritonitis, peritoneal fluid cultures growing gram-negative rods. Speciation pending. - Hypertension - Hypokalemia, mild/asymptomatic - Anemia of ESRD - Hyperglycemia Plan: - Follow cultures obtained at the HD unit - Continue ceftazidime daily for 7 days - continue manual peritoneal dialysis exchange with 1.5% dialysate 4 times daily while inpatient - continue home antihypertensives, goal blood pressure is less than 140/90 - disposition: results were discussed with the patient and his dialysis nurse. Patient can be discharged today from renal standpoint. If discharged he is to go today to the dialysis unit to collect the antibiotics as arranged. Cultures that were obtained at the dialysis unit over the weekend will be followed for speciation and adjustment of antibiotics appropriately. Subjective Date of service: 04/20/20 Principal diagnosis: peritonitis Interval history: Abdominal pain improved. Ready to be discharged. Objective - Exam Narrative Exam: General appearance: well-developed EENT: mucous membranes moist, sclera incterus Neck: Present: neck supple, trachea midline Respiratory: Clear to Ascultation, Normal Exam Heart: regular, S1S2 Gastrointestinal: Present: normoactive bowel sounds, other (PD exit site appeared clean/dry/intact and without any signs of inflammation. No exudate noted.) Integumentary: no rash Neurologic: no focal deficit, no asterixis Musculoskeletal: Present: other (normal range of motion) Psychiatric: mood/affect appropriate - Vital Signs Vital signs: Vital Signs - 12hr 04/19/20 04/19/20 04/19/20 21:25 21:26 22:00 Temperature 98.5 F Pulse Rate 67 63 Respiratory 20 16 18 Rate Blood Pressure 193/103 Blood Pressure 150/88 [Left] O2 Sat by Pulse 92 Oximetry 04/20/20 04/20/20 04/20/20 00:22 00:41 06:21 Temperature 98.8 F 97.8 F Pulse Rate 67 66 63 Respiratory 18 18 Rate Blood Pressure 193/103 173/85 162/87 Blood Pressure [Left] O2 Sat by Pulse 93 92 Oximetry 04/20/20 07:51 Temperature 98.4 F Pulse Rate 60 Respiratory 18 Rate Blood Pressure 159/80 Blood Pressure [Left] O2 Sat by Pulse 94 Oximetry - Lab 04/19/20 10:40 04/19/20 10:40 Most recent lab results Calcium 8.7 mg/dL (8.4-10.2) 04/19/20 10:40 Medications & Allergies - Medications Allergies/Adverse Reactions: Allergies No Known Allergies Allergy (Verified 07/08/18 12:03) Home Medications: Home Medications Medication Instructions Recorded Confirmed Last Taken Type Albuterol Mdi (or & Nicu Only) 2 puff IH QID PRN #1 inhalation 04/01/17 04/20/20 Unknown Rx [ProAir HFA Inhaler] Atorvastatin [Lipitor Tab] 40 mg PO QHS 04/20/20 04/20/20 04/16/20 History Calcium Acetate 667 mg PO DAILY 04/20/20 04/20/20 04/16/20 History Centrum Men's Tablet 1 tab PO DAILY 04/20/20 04/20/20 04/16/20 History Cinacalcet 30 mg PO DAILY 04/20/20 04/20/20 04/16/20 History Dialyvite with Zinc Tablet 1 tab PO DAILY 04/20/20 04/20/20 04/16/20 History Hydrocortisone 1% CREAM 1 1000units TRANSDERMA DAILY 04/20/20 04/20/20 04/16/20 History Magnesium 250 mg PO BID 04/20/20 04/20/20 04/16/20 History Triamcinolone 0.1% 1 1000units TRANSDERMA DAILY 04/20/20 04/20/20 04/16/20 History Varenicline Tartrate [Chantix] 1 tab PO DAILY 04/20/20 04/20/20 04/16/20 History Vit B12/Folic Acid/B6/Aa No.15 1,000 mg PO DAILY 04/20/20 04/20/20 04/16/20 History Active Medications: Generic Name Dose Route Start Last Admin Trade Name Freq PRN Reason Stop Dose Admin Acetaminophen 650 mg 04/18/20 02:24 Tylenol PO Q4H PRN Pain MILD(1-3)/Fever >100.5/HULL Peritoneal Dialysis Solution 2 0 ml 04/18/20 18:00 04/19/20 17:50 ,000 ml/ Ceftazidime 1 gm IP 2,000 ml Q24H THOMAS Administration Famotidine 20 mg 04/20/20 10:00 Pepcid PO DAILY THOMAS Hydralazine HCl 50 mg 04/20/20 08:00 Apresoline PO TID THOMAS Morphine Sulfate 2 mg 04/18/20 02:24 04/19/20 09:08 Morphine IV 2 mg Q4H PRN Administration Pain, Moderate (4-6) Ondansetron HCl 4 mg 04/18/20 02:24 04/18/20 03:01 Zofran IV 4 mg Q8H PRN Administration Nausea And Vomiting Peritoneal Dialysis Solution 2,000 ml 04/19/20 00:00 04/20/20 06:31 Dianeal Pd-2 W/1.5% Dextrose IP 2,000 ml 0000,0600,1200 THOMAS Administration Sodium Chloride 10 ml 04/18/20 10:00 04/19/20 22:27 Sodium Chloride Flush Syringe 10 Ml IV 10 ml BID THOMAS Administration Sodium Chloride 10 ml 04/18/20 02:24 Sodium Chloride Flush Syringe 10 Ml IV PRN PRN LINE FLUSH
--- NOTE | 2020-04-20 09:12 | Discharge Summary ---
Providers - Providers Date of Admission: 04/18/20 02:05 Date of discharge: 04/20/20 Attending physician: MILKA MATUTE 04/18/20 01:56 Consult to Physician [CONS] Routine Comment: Consulting Provider: MAGDALENA PRECIADO Physician Instructions: Reason For Exam: free air on CT, abd ascites Consult to Physician [CONS] Routine Comment: Consulting Provider: SABINO SCHERER Physician Instructions: Reason For Exam: dialysis 04/18/20 09:14 Consult to Physician [CONS] Routine Comment: Consulting Provider: JARROD MCKENNA Physician Instructions: Reason For Exam: suspected SBP, on peritoneal dialysis Primary care physician: [employer] Hospitalization Condition: Serious Hospital course: Patient is a 59-year-old male with known history of congestive heart failure, GERD, Crohn's disease, end-stage renal disease on peritoneal dialysis, hypertension, presenting to the emergency room today complaining of generalized abdominal pain. Abdominal pain is been ongoing for about 4 days.. Patient states he was a little constipated but has since had a bowel movement, denies any fever or chills, had some nausea but no vomiting, denies any diarrhea. He denies any bright red blood per rectum, and denies any melena. Patient follows up with Dr. Scherer.. Work-up in the emergency room today including CT of the abdomen and pelvis shows free air and some ascites. General surgeon Dr. Preciado has been consulted by the ER physician and recommendation is to make patient n.p.o. patient will be promptly evaluated. 04/19 Patient is A&O, NAD, c/o abd. pain. denies f/c/N/V or diarrhea. Denies CP or sob. ID, nephrology and gen. surgery notes reviewed. no new lab results available. lab results from 04/17 reviewed 04/20 no new events over nite nephrology note reviewed and discussed with DR. Bell medically stable for discharge A/P: ESRD on peritoneal dialysis since 2017 nephrology note reviewed PD catheter associated peritonitis Peritoneal fluid cultures positive for GNR Isolation and sensitivity pending Cont. ceftazidine via PD catheter ID note reviewed discussed with Dr. Bell OP abx has been arranged Nephrology will follow up with final culture results wihch is pending at this time Hypertension: medications adjusted Normocytic anemia H/H stable Hx of Crohn's disease not on medication ? on prednisone at home discussed with the patient states he is not taking it and was told he does not have the disease GERD start on pepcid Hypokalemia Patient has ESRD Discussed with Dr. Bell no need for potassium supplements Disposition: DC-01 TO HOME OR SELFCARE Time spent for discharge: 38 min Core Measure Documentation - Palliative Care Palliative Care/ Comfort Measures: Not Applicable - Core Measures Any of the following diagnoses?: none Exam - Constitutional Vitals: Temp Pulse Resp BP Pulse Ox 98.4 F 60 18 159/80 94 04/20/20 07:51 04/20/20 07:51 04/20/20 07:51 04/20/20 07:51 04/20/20 07:51 General appearance: Present: no acute distress - EENT Eyes: Present: PERRL, EOM intact ENT: hearing intact, clear oral mucosa - Neck Neck: Present: supple, normal ROM - Respiratory Respiratory effort: normal Respiratory: bilateral: CTA - Cardiovascular Rhythm: regular Heart Sounds: Present: S1 & S2 - Extremities Extremities: No edema - Abdominal General gastrointestinal: Present: soft, tender (mild gen. tenderness) Male genitourinary: Present: deferred - Rectal Rectal Exam: deferred - Integumentary Integumentary: Present: clear - Neurologic Neurologic: no focal deficits, moves all extremities Plan Activity: no restrictions, advance as tolerated Weight Bearing Status: Weight Bear as Tolerated Diet: regular, low fat, low salt, renal Wound: keep clean and dry Special Instructions: restrict fluid intake to (1200 ml/day) Additional Instructions: F/U with nephrology and dialysis clinic Follow up with: PRIMARY CAREMD [Primary Care Provider] - 7 Days
[2020-04-20] MEDS ORDERED: FAMOTIDINE 20 MG TAB PO SCH (10:00)
--- NOTE | 2020-04-20 11:46 | Progress Note ---
Assessment and Plan Cultures: 04/18/2020 blood culture: no growth 04/18/2020 PD fluid culture: GNR As per my discussion with his dialysis nurse at [facility], PD fluid collected on 04/15/2020 also growing GNR. A/P: 59-year-old male with ESRD on PD for the last 2 years, CHF, gastroesophageal reflux disease, Crohn's disease was admitted to the hospital with generalized abdominal pain. Was on outpatient intraperitoneal Ancef and ceftazidime, admitted due to worsening abdominal pain: #PD associated peritonitis: CT abdomen with a small amount of intraperitoneal air believed to be secondary to peritoneal dialysis. Outpatient and inpatient PD fluid cultures growing GNR. PD fluid with 600+ WBC, mainly PMNs. #ESRD on PD: Renally dose antibiotics. Nephrology following. Recs: continue IP Ceftazidime per nephrology, patient being discharged. Duration: ~3 weeks If PD fluid cultures grow a biofilm former such as Pseudomonas, recommend removal of his PD catheter follow up outpatient with nephrology Yesika Denny MD, FACP [facility] C: [phone] O: [phone] F: [phone] Subjective Date of service: 04/20/20 Principal diagnosis: peritonitis Interval history: No fever. Abdominal pain improving. Getting discharged today. Objective - Exam Narrative Exam: Physical Exam: Constitutional: Alert, cooperative. No acute distress Head, Ears, Nose: Normocephalic, atraumatic. External ears, nose normal Eyes: Conjunctivae/corneas clear. No icterus. No ptosis. Neck: Supple, no meningeal signs Cardiovascular: S1, S2 normal. Respiratory: Good air entry, clear to auscultation bilaterally GI: Soft, mild tenderness, RLQ PD cath +, exit site clean; bowel sounds + Musculoskeletal: No pedal edema, no cyanosis. Skin: No rash or abscess Hem/Lymphatic: No palpable cervical or supraclavicular nodes. No lymphangitis Psych: Mood ok. Affect normal Neurological: Awake, alert, oriented. No gross abnormality - Constitutional Vitals: Vital Signs Temp Pulse Resp BP Pulse Ox 98.4 F 60 18 159/80 94 04/20/20 07:51 04/20/20 07:51 04/20/20 07:51 04/20/20 07:51 04/20/20 07:51 Temperature -Last 24 Hours Temperature 98.4 F Temperature 97.8 F Temperature 98.8 F Temperature 98.5 F Temperature 98.5 F Temperature 98.3 F - Labs CBC & Chem 7: 04/19/20 10:40 04/19/20 10:40 Labs: Abnormal lab results 04/19/20 Range/Units 10:40 PT 15.5 H (12.2-14.9) Sec. INR 1.20 H (0.87-1.13)
--- NOTE | 2020-04-22 15:57 | Event Note ---
Date: 04/22/20 PD fluid cultures are growing a resistant Enterobacter. Discussed findings with employment law attorney Dr. Bell. Enterobacter being an AmpC beta lactamase studio producer, low generation (1st,2nd,3rd) cephalosporins cannot be used. IV/IP cefepime would be a preferred option however is not available at most dialysis centers. Isolate is susceptible to fluoroquinolones, hence can try p.o. levofloxacin or ciprofloxacin for at least 3 weeks with close outpatient monitoring to ensure there good response to treatment.
== END 2020-04-20 12:38 | disposition home or self-care (01) ==
LOC: ED 18:58 → 3A 04-18 02:05
PROVIDERS: ADMIT Internal Medicine Geriatric Medicine; ATTEND Internal Medicine
DX: K66.8 Other specified disorders of peritoneum (principal); R10.9 Unspecified abdominal pain; I13.2 Hypertensive heart and chronic kidney disease with heart failure and with stage 5 chronic kidney disease, or end stage renal disease; I50.9 Heart failure, unspecified; N18.6 End stage renal disease; K21.9 Gastro-esophageal reflux disease without esophagitis; K50.90 Crohn's disease, unspecified, without complications; E87.6 Hypokalemia; D64.9 Anemia, unspecified; G43.909 Migraine, unspecified, not intractable, without status migrainosus; R73.9 Hyperglycemia, unspecified; Z99.2 Dependence on renal dialysis; Z90.49 Acquired absence of other specified parts of digestive tract
CPT/HCPCS: 36415; 74176; 74177; 80048; 80053; 81001; 83690; 85025; 85610; 87040; 87076; 87116; 87186; 89051; 93005; 96365; 96366; 96375; 96376; 99291; G0378; J0696; J0713; J2270; J2405; Q9963

== ENCOUNTER 2020-06-09 10:49 | Observation (INO) | payer MEDICARE ==
[2020-06-09 12:01] LABS: Basophils % (Auto) 0.4 % (0.0-1.8); Eosinophils # (Auto) 0.1 K/mm3 (0.0-0.4); Eosinophils % (Auto) 0.8 % (0.0-4.3); Hemoglobin 6.3 gm/dl (11.8-15.2); Lymphocytes # (Auto) 0.8 K/mm3 (1.2-5.4); Lymphocytes % (Auto) 10.1 % (13.4-35.0); Mean Corpuscular HGB Conc 34 % (32-34); Mean Corpuscular Volume 100 fl (84-94); Monocytes # (Auto) 0.4 K/mm3 (0.0-0.8); Monocytes % (Auto) 4.6 % (0.0-7.3); Platelet Count 217 K/mm3 (140-440); Red Blood Count 1.88 M/mm3 (3.65-5.03)
[2020-06-09 12:04] LABS: Hematocrit 18.8 % (35.5-45.6)
[2020-06-09 12:10] LABS: INR 1.04 (0.87-1.13)
[2020-06-09 12:11] LABS: Partial Thromboplastin Time 23.5 Sec. (24.2-36.6)
[2020-06-09 12:21] LABS: Albumin 3.5 g/dL (3.9-5); Calcium 8.5 mg/dL (8.4-10.2)
[2020-06-09] MEDS ORDERED: SODIUM CHLORIDE 0.9% 500 ML 500 ML IV ONE (12:44)
--- NOTE | 2020-06-09 13:12 | History and Physical Report ---
History of Present Illness Chief complaint: I have blood in my stool History of present illness: 59 YO Male with ESRD on PD, GERD, Crohn's Disease, Nicotine Dependence, HTN, Systolic CHF(EF 35%) presents to ED for evaluation. Patient states that he had experienced multiple episodes of dark tarry stools over the past 3 days. 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 Patient transported to [facility] via private vehicle for further care and evaluation. Patient seen and evaluated in the emergency department. All lab and imaging studies reviewed. Patient found to have symptoms consistent with GI bleed as well as end-stage renal disease in need of dialysis as well as congestive heart failure. Patient initiated on GI bleed protocol and admitted to telemetry for further care and evaluation due to increased risk of decompensation. Patient denies fever, chills, chest pain, palpitations, productive cough, skin rash, recent ill contacts, ingestion of food/water from new or different sources, or known exposure to COVID-19. Prior admission on 04/18/2020 reviewed. All medication listed at time of admission has been reconciled. Advanced care planning conducted in ED. Past History Past Medical History: ESRD, heart failure, hypertension, other (See HPI) Past Surgical History: appendectomy, cholecystectomy Social history: single, smoking. denies: alcohol abuse, prescription drug abuse Family history: no significant family history Medications and Allergies Allergies Allergy/AdvReac Type Severity Reaction Status Date / Time No Known Allergies Allergy Verified 07/08/18 12:03 Home Medications Medication Instructions Recorded Confirmed Last Taken Type Albuterol Mdi (or & Nicu Only) 2 puff IH QID PRN #1 inhalation 04/01/17 06/09/20 Unknown Rx [ProAir HFA Inhaler] Calcium Acetate 667 mg PO DAILY 04/20/20 06/09/20 04/16/20 History Centrum Men's Tablet 1 tab PO DAILY 04/20/20 06/09/20 04/16/20 History Cinacalcet 30 mg PO DAILY 04/20/20 06/09/20 04/16/20 History Dialyvite with Zinc Tablet 1 tab PO DAILY 04/20/20 06/09/20 04/16/20 History Magnesium 250 mg PO BID 04/20/20 06/09/20 04/16/20 History Triamcinolone 0.1% 1 1000units TRANSDERMA DAILY 04/20/20 06/09/20 04/16/20 History Vit B12/Folic Acid/B6/Aa No.15 1,000 mg PO DAILY 04/20/20 06/09/20 04/16/20 History Doxazosin [Cardura] 4 mg PO QDAY 06/09/20 06/09/20 Unknown History Pantoprazole [Protonix] 40 mg PO QDAY 06/09/20 06/09/20 Unknown History Potassium Chloride [K-Dur] 20 meq PO QDAY 06/09/20 06/09/20 Unknown History amLODIPine [Norvasc] 10 mg PO DAILY 06/09/20 06/09/20 Unknown History Review of Systems Constitutional: no weight loss, no weight gain, no fever, no chills Ears, nose, mouth and throat: no ear pain, no ear discharge, no tinnitis, no decreased hearing, no nose pain Cardiovascular: no chest pain, no orthopnea, no palpitations, no edema, no syncope Respiratory: no cough, no excessive sputum, no hemoptysis, no shortness of breath Gastrointestinal: melena, no abdominal pain, no vomiting, no diarrhea, no constipation, no early satiety Genitourinary Male: no hematuria, no flank pain, no discharge, no urinary frequency, no urinary hesitancy Rectal: no pain, no incontinence, no bleeding Musculoskeletal: no neck stiffness, no neck pain, no shooting arm pain, no low back pain, no shooting leg pain Integumentary: no rash, no pruritis, no redness, no sores, no wounds Neurological: no head injury, no transient paralysis, no weakness, no numbness, no seizures, no syncope Psychiatric: no anxiety, no memory loss, no sleep disturbances, no hypersomnia, no change in appetite, no change in libido Endocrine: no cold intolerance, no heat intolerance, no excessive thirst, no polyuria, no nocturia, no excessive sweating Hematologic/Lymphatic: no easy bruising, no easy bleeding, no lymphadenopathy Allergic/Immunologic: no allergic rhinitis, no wheezing, no persistent infections, no angioedema Exam - Constitutional Vitals: Temp Pulse Resp BP Pulse Ox 97.7 F 88 18 153/73 100 06/09/20 12:35 06/09/20 12:35 06/09/20 12:35 06/09/20 12:35 06/09/20 12:35 General appearance: Present: mild distress - EENT Eyes: Present: PERRL ENT: hearing intact, clear oral mucosa - Neck Neck: Present: supple, normal ROM - Respiratory Respiratory effort: normal Respiratory: bilateral: CTA - Cardiovascular Heart Sounds: Present: S1 & S2. Absent: rub, click - Extremities Extremities: pulses symmetrical, No edema Peripheral Pulses: within normal limits - Abdominal General gastrointestinal: Present: soft, non-tender, non-distended, normal bowel sounds Male genitourinary: Present: normal - Integumentary Integumentary: Present: clear, warm, dry - Musculoskeletal Musculoskeletal: gait normal, strength equal bilaterally - Psychiatric Psychiatric: appropriate mood/affect, intact judgment & insight - Neurologic Neurologic: CNII-XII intact, moves all extremities Results - Labs CBC & Chem 7: 06/09/20 11:28 06/09/20 11:28 Labs: Abnormal lab results 06/09/20 06/09/20 06/09/20 Range/Units 11:25 11:28 11:28 RBC 1.88 L (3.65-5.03) M/mm3 Hgb 6.3 L (11.8-15.2) gm/dl Hct 18.8 L* (35.5-45.6) % MCV 100 H (84-94) fl MCH 34 H (28-32) pg Lymph % (Auto) 10.1 L (13.4-35.0) % Lymph # (Auto) 0.8 L (1.2-5.4) K/mm3 Seg Neutrophils % 84.1 H (40.0-70.0) % APTT 23.5 L (24.2-36.6) Sec. Chloride 97.3 L (98-107) mmol/L BUN 68 H (9-20) mg/dL Creatinine 9.0 H (0.8-1.3) mg/dL Glucose 130 H (75-100) mg/dL Total Protein 5.5 L (6.3-8.2) g/dL Albumin 3.5 L (3.9-5) g/dL Assessment and Plan - Patient Problems (1) GI bleed Current Visit: Yes Status: Acute Qualifiers: GI bleed type/associated pathology: unspecified gastrointestinal hemorrhage type Qualified Code(s): K92.2 - Gastrointestinal hemorrhage, unspecified Plan to address problem: Gastroenterology team consulted in ED, packed red blood cell transfusion, IV PPI therapy, supportive care. Repeat CBC in a.m. (2) HTN (hypertension) Current Visit: Yes Status: Acute Qualifiers: Hypertension type: essential hypertension Qualified Code(s): I10 - Essential (primary) hypertension Plan to address problem: Monitor blood pressure every shift, continue medical management. (3) ESRD (end stage renal disease) Current Visit: Yes Status: Acute Plan to address problem: Nephrology team consulted in ED, dialysis as per renal team, strict I's/O, monitor urine output every shift, avoid nephrotoxic agents. (4) Acute on chronic systolic CHF (congestive heart failure) Current Visit: No Status: Chronic Plan to address problem: Monitor blood pressure every shift, continue medical management, afterload reduction, strict I's/O, monitor urine output every shift, daily weight, (5) Nicotine dependence Current Visit: Yes Status: Acute Qualifiers: Nicotine product type: cigarettes Substance use status: in withdrawal Qualified Code(s): F17.213 - Nicotine dependence, cigarettes, with withdrawal Plan to address problem: Smoking cessation counseling, supportive care, behavior change counseling, +15 minutes (6) DVT prophylaxis Current Visit: Yes Status: Acute Plan to address problem: SCD to bilateral lower extremities while in bed, hold anticoagulation due to active GI bleed. (7) Advance care planning Current Visit: Yes Status: Acute Plan to address problem: Disease education conducted, patient is full code, prognosis discussed, patient knowledges understanding and agreement with care plan, +30 minutes.
--- NOTE | 2020-06-09 13:20 | Emergency Department Report ---
ED GI Bleed HPI - General Chief complaint: GI Bleed Stated complaint: SENT BY MD FOR GI WORKUP Time Seen by Provider: 06/09/20 12:27 Source: patient Mode of arrival: Ambulatory Limitations: No Limitations - History of Present Illness Initial comments: Patient is a 59-year-old F [place]amese male with past medical history of end-stage renal disease on peritoneal dialysis who is presenting with 3 days of dark black stools. Patient states he has been dizzy with standing the last several days as well. 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 Patient vomited once but denies seeing blood in his vomit. Patient is denying any current chest pain shortness of breath or abdominal pain. States he did have some epigastric burning yesterday which radiated into his chest but this is resolved. Patient denies any cough cold congestion fevers chills. Severity scale (0 -10): 0 - Related Data Home Medications Medication Instructions Recorded Confirmed Last Taken Atorvastatin [Lipitor Tab] 40 mg PO QHS 04/20/20 04/20/20 04/16/20 Calcium Acetate 667 mg PO DAILY 04/20/20 04/20/20 04/16/20 Centrum Men's Tablet 1 tab PO DAILY 04/20/20 04/20/20 04/16/20 Cinacalcet 30 mg PO DAILY 04/20/20 04/20/20 04/16/20 Dialyvite with Zinc Tablet 1 tab PO DAILY 04/20/20 04/20/20 04/16/20 Hydrocortisone 1% CREAM 1 1000units TRANSDERMA DAILY 04/20/20 04/20/20 04/16/20 Magnesium 250 mg PO BID 04/20/20 04/20/20 04/16/20 Triamcinolone 0.1% 1 1000units TRANSDERMA DAILY 04/20/20 04/20/20 04/16/20 Varenicline Tartrate [Chantix] 1 tab PO DAILY 04/20/20 04/20/20 04/16/20 Vit B12/Folic Acid/B6/Aa No.15 1,000 mg PO DAILY 04/20/20 04/20/20 04/16/20 Previous Rx's Medication Instructions Recorded Last Taken Type Albuterol Mdi (or & Nicu Only) 2 puff IH QID PRN #1 inhalation 04/01/17 Unknown Rx [ProAir HFA Inhaler] Allergies Allergy/AdvReac Type Severity Reaction Status Date / Time No Known Allergies Allergy Verified 07/08/18 12:03 ED Review of Systems ROS: Stated complaint: SENT BY MD FOR GI WORKUP Other details as noted in HPI Comment: All other systems reviewed and negative ED Past Medical Hx - Past Medical History Hx Hypertension: Yes (FOR YRS, DR. GREEN- PCP) Hx Heart Attack/AMI: No Hx Congestive Heart Failure: Yes (IN 2013) Hx Diabetes: No Hx GERD: Yes Hx Renal Disease: Yes (CKD STAGE 4) Hx Sickle Cell Disease: No Hx Headaches / Migraines: Yes Hx Seizures: No Hx Asthma: No Hx COPD: No Hx Dementia: No Hx HIV: No Additional medical history: Crohns - Surgical History Hx Cholecystectomy: Yes (IN 1998) Hx Appendectomy: Yes (IN 2007) - Social History Smoking Status: Current Every Day Smoker - Medications Home Medications: Home Medications Medication Instructions Recorded Confirmed Last Taken Type Albuterol Mdi (or & Nicu Only) 2 puff IH QID PRN #1 inhalation 04/01/17 04/20/20 Unknown Rx [ProAir HFA Inhaler] Atorvastatin [Lipitor Tab] 40 mg PO QHS 04/20/20 04/20/20 04/16/20 History Calcium Acetate 667 mg PO DAILY 04/20/20 04/20/20 04/16/20 History Centrum Men's Tablet 1 tab PO DAILY 04/20/20 04/20/20 04/16/20 History Cinacalcet 30 mg PO DAILY 04/20/20 04/20/20 04/16/20 History Dialyvite with Zinc Tablet 1 tab PO DAILY 04/20/20 04/20/20 04/16/20 History Hydrocortisone 1% CREAM 1 1000units TRANSDERMA DAILY 04/20/20 04/20/20 04/16/20 History Magnesium 250 mg PO BID 04/20/20 04/20/20 04/16/20 History Triamcinolone 0.1% 1 1000units TRANSDERMA DAILY 04/20/20 04/20/20 04/16/20 History Varenicline Tartrate [Chantix] 1 tab PO DAILY 04/20/20 04/20/20 04/16/20 History Vit B12/Folic Acid/B6/Aa No.15 1,000 mg PO DAILY 04/20/20 04/20/20 04/16/20 History ED Physical Exam - General Limitations: No Limitations General appearance: alert, in no apparent distress - Head Head exam: Present: atraumatic, normocephalic - Eye Eye exam: Present: normal appearance, PERRL - ENT ENT exam: Present: mucous membranes moist - Neck Neck exam: Present: normal inspection - Respiratory Respiratory exam: Present: normal lung sounds bilaterally. Absent: respiratory distress, wheezes, rales, rhonchi - Cardiovascular Cardiovascular Exam: Present: regular rate, normal rhythm, normal heart sounds. Absent: systolic murmur, diastolic murmur, rubs, gallop - GI/Abdominal GI/Abdominal exam: Present: soft, normal bowel sounds. Absent: distended, tende rness, guarding, rebound - Rectal Rectal exam: Present: deferred - Extremities Exam Extremities exam: Present: normal inspection - Back Exam Back exam: Present: normal inspection - Neurological Exam Neurological exam: Present: alert, oriented X3 - Psychiatric Psychiatric exam: Present: normal affect, normal mood - Skin Skin exam: Present: warm, dry, intact, normal color. Absent: rash ED Course Vital Signs 06/09/20 06/09/20 11:12 12:35 Temperature 98.0 F 97.7 F Pulse Rate 89 88 Respiratory 20 18 Rate Blood Pressure 140/78 Blood Pressure 153/73 [Left] O2 Sat by Pulse 100 100 Oximetry ED Medical Decision Making - Lab Data Result diagrams: 06/09/20 11:28 06/09/20 11:28 Lab Results 06/09/20 06/09/20 06/09/20 Range/Units 11:25 11:28 11:28 WBC 8.1 (4.5-11.0) K/mm3 RBC 1.88 L (3.65-5.03) M/mm3 Hgb 6.3 L (11.8-15.2) gm/dl Hct 18.8 L* (35.5-45.6) % MCV 100 H (84-94) fl MCH 34 H (28-32) pg MCHC 34 (32-34) % RDW 15.0 (13.2-15.2) % Plt Count 217 (140-440) K/mm3 Lymph % (Auto) 10.1 L (13.4-35.0) % Josephine % (Auto) 4.6 (0.0-7.3) % Eos % (Auto) 0.8 (0.0-4.3) % Baso % (Auto) 0.4 (0.0-1.8) % Lymph # (Auto) 0.8 L (1.2-5.4) K/mm3 Josephine # (Auto) 0.4 (0.0-0.8) K/mm3 Eos # (Auto) 0.1 (0.0-0.4) K/mm3 Baso # (Auto) 0.0 (0.0-0.1) K/mm3 Seg Neutrophils % 84.1 H (40.0-70.0) % Seg Neutrophils # 6.8 (1.8-7.7) K/mm3 PT 13.8 (12.2-14.9) Sec. INR 1.04 (0.87-1.13) APTT 23.5 L (24.2-36.6) Sec. Sodium 137 (137-145) mmol/L Potassium 3.9 (3.6-5.0) mmol/L Chloride 97.3 L (98-107) mmol/L Carbon Dioxide 28 (22-30) mmol/L Anion Gap 16 mmol/L BUN 68 H (9-20) mg/dL Creatinine 9.0 H (0.8-1.3) mg/dL Estimated GFR 7 ml/min BUN/Creatinine Ratio 8 % Glucose 130 H (75-100) mg/dL Calcium 8.5 (8.4-10.2) mg/dL Total Bilirubin 0.30 (0.1-1.2) mg/dL AST 36 (5-40) units/L ALT 43 (7-56) units/L Alkaline Phosphatase 107 (35-129) units/L Total Protein 5.5 L (6.3-8.2) g/dL Albumin 3.5 L (3.9-5) g/dL Albumin/Globulin Ratio 1.8 % - Medical Decision Making Patient is a 59-year-old gentleman who is presenting with dizziness upon standing. Patient is noted to have a decreased hemoglobin secondary to his GI bleed. Patient to be transfused and will be admitted for further management Critical Care Time: Yes (30) Critical care attestation.: If time is entered above; I have spent that time in minutes in the direct care of this critically ill patient, excluding procedure time. ED Disposition Clinical Impression: Symptomatic anemia, Near syncope, ESRD (end stage renal disease) Disposition: OP ADMIT IP TO THIS HOSP Is pt being admited?: Yes Does the pt Need Aspirin: No Condition: Stable Time of Disposition: 13:20
[2020-06-09] MEDS ORDERED: SODIUM CHLORIDE 0.9% 500 ML 500 ML IV NR (13:49)
[2020-06-09] MEDS ORDERED: ACETAMINOPHEN 325 MG TAB PO PRN (13:52)
[2020-06-09] MEDS ORDERED: ONDANSETRON 4 MG/2 ML INJ IV PRN (13:52)
[2020-06-09] MEDS ORDERED: ALBUTEROL 2.5 MG/3 ML NEBU IH PRN (13:52)
[2020-06-09] MEDS: PANTOPRAZOLE 40 MG INJ IV SCH (22:03)
[2020-06-09] MEDS ORDERED: SODIUM CHLORIDE 0.9% 500 ML 500 ML IV SCH (23:00)
[2020-06-10] MEDS ORDERED: FUROSEMIDE 20 MG/2 ML INJ IV ONE (02:00)
[2020-06-10] MEDS ORDERED: SODIUM CHLORIDE 0.9% 1000 ML 1,000 ML IV SCH (08:00)
[2020-06-10] MEDS: PANTOPRAZOLE 40 MG INJ IV SCH (09:40)
[2020-06-10 10:41] LABS: Basophils % (Auto) 0.5 % (0.0-1.8); Eosinophils # (Auto) 0.3 K/mm3 (0.0-0.4); Eosinophils % (Auto) 3.7 % (0.0-4.3); Hematocrit 22.6 % (35.5-45.6); Hemoglobin 7.8 gm/dl (11.8-15.2); Lymphocytes % (Auto) 14.3 % (13.4-35.0); Mean Corpuscular HGB Conc 35 % (32-34); Mean Corpuscular Volume 94 fl (84-94); Monocytes # (Auto) 0.5 K/mm3 (0.0-0.8); Monocytes % (Auto) 6.7 % (0.0-7.3); Platelet Count 163 K/mm3 (140-440); Red Blood Count 2.42 M/mm3 (3.65-5.03); Red Cell Distribution Width 16.1 % (13.2-15.2)
[2020-06-10 10:55] LABS: Calcium 8.4 mg/dL (8.4-10.2)
[2020-06-10] MEDS ORDERED: SODIUM CHLORIDE 0.9% 1000 ML 1,000 ML ONE (13:33)
[2020-06-10] MEDS ORDERED: WATER FOR IRRIG STERILE 250 ML BOTTLE IR ONE (13:33)
--- NOTE | 2020-06-10 13:37 | Gastroenterology Consultation ---
History of Present Illness - Reason for Consult Consult date: 06/10/20 GI bleed Requesting physician: CLARISSA AKINS - History of Present Illness The patient is a 59 yo aam with h/o ESRD, CHF, ? IBD presenting with dark/black appearing stools for 2 days. Pt instructed to come to hospital due to reported symptoms, states he has multiple dark blood and black appearing stools prior to admission. No further episodes overnight/today. ? h/o IBD/crohn's disease base d on chart review, however pt unaware of this and unable to provide further details (he is unsure of last colonoscopy). Denies abd pain, n/v, nsaid's. Past History Past Medical History: ESRD, heart failure, hypertension, other (See HPI) Past Surgical History: appendectomy, cholecystectomy Social history: single, smoking. denies: alcohol abuse, prescription drug abuse Family history: no significant family history Medications and Allergies Allergies Allergy/AdvReac Type Severity Reaction Status Date / Time No Known Allergies Allergy Verified 06/09/20 15:27 Home Medications Medication Instructions Recorded Confirmed Last Taken Type Albuterol Mdi (or & Nicu Only) 2 puff IH QID PRN #1 inhalation 04/01/17 06/09/20 Unknown Rx [ProAir HFA Inhaler] Calcium Acetate 667 mg PO DAILY 04/20/20 06/09/20 04/16/20 History Centrum Men's Tablet 1 tab PO DAILY 04/20/20 06/09/20 04/16/20 History Cinacalcet 30 mg PO DAILY 04/20/20 06/09/20 04/16/20 History Dialyvite with Zinc Tablet 1 tab PO DAILY 04/20/20 06/09/20 04/16/20 History Magnesium 250 mg PO BID 04/20/20 06/09/20 04/16/20 History Triamcinolone 0.1% 1 1000units TRANSDERMA DAILY 04/20/20 06/09/20 04/16/20 History Vit B12/Folic Acid/B6/Aa No.15 1,000 mg PO DAILY 04/20/20 06/09/20 04/16/20 History Doxazosin [Cardura] 4 mg PO QDAY 06/09/20 06/09/20 Unknown History Pantoprazole [Protonix] 40 mg PO QDAY 06/09/20 06/09/20 Unknown History Potassium Chloride [K-Dur] 20 meq PO QDAY 06/09/20 06/09/20 Unknown History amLODIPine [Norvasc] 10 mg PO DAILY 06/09/20 06/09/20 Unknown History Active Meds: Active Medications Acetaminophen (Tylenol) 650 mg PO Q4H PRN PRN Reason: Pain MILD(1-3)/Fever >100.5/HULL Albuterol (Proventil) 2.5 mg IH Q4HRT PRN PRN Reason: Shortness Of Breath Sodium Chloride (Nacl 0.9% 500 Ml) 500 mls @ 2 mls/hr IV DIRECT [facility] Last Admin: 06/09/20 22:45 Dose: 2 mls/hr Documented by: Sodium Chloride (Nacl 0.9% 1000 Ml) 1,000 mls @ 50 mls/hr IV DIRECT [facility] Last Admin: 06/10/20 09:41 Dose: 50 mls/hr Documented by: Ondansetron HCl (Zofran) 4 mg IV Q8H PRN PRN Reason: Nausea And Vomiting Pantoprazole Sodium (Protonix) 40 mg IV BID [facility] Last Admin: 06/10/20 09:40 Dose: 40 mg Documented by: Sodium Chloride (Sodium Chloride Flush Syringe 10 Ml) 10 ml IV BID [facility] Last Admin: 06/10/20 09:41 Dose: 10 ml Documented by: Sodium Chloride (Sodium Chloride Flush Syringe 10 Ml) 10 ml IV PRN PRN PRN Reason: LINE FLUSH Reviewed/updated patient's home and current medications Review of Systems - Review of Systems All systems: negative (per HPI) Exam - Constitutional Vital Signs: Temp Pulse Resp BP Pulse Ox 97.4 F L 76 18 141/81 100 06/10/20 12:15 06/10/20 12:15 06/10/20 12:15 06/10/20 12:15 06/10/20 12:15 General appearance: no acute distress - Respiratory Respiratory effort: normal Respiratory: bilateral: CTA - Cardiovascular Rhythm: regular Heart Sounds: Present: S1 & S2 - Gastrointestinal General gastrointestinal: Present: soft, non-tender, non-distended - Neurologic Neurological: alert and oriented x3 - Psychiatric Psychiatric: appropriate mood/affect - Labs CBC & Chem 7: 06/10/20 09:55 06/10/20 09:55 Lab Results: Laboratory Results - last 24 hr 06/09/20 06/10/20 06/10/20 11:28 09:55 09:55 WBC 7.3 RBC 2.42 L Hgb 7.8 L Hct 22.6 L MCV 94 MCH 32 MCHC 35 H RDW 16.1 H Plt Count 163 Lymph % (Auto) 14.3 Bailey % (Auto) 6.7 Eos % (Auto) 3.7 Baso % (Auto) 0.5 Lymph # (Auto) 1.0 L Bailey # (Auto) 0.5 Eos # (Auto) 0.3 Baso # (Auto) 0.0 Seg Neutrophils % 74.8 H Seg Neutrophils # 5.4 Sodium 140 Potassium 4.8 D Chloride 102.8 Carbon Dioxide 26 Anion Gap 16 BUN 82 H Creatinine 10.0 H Estimated GFR 6 BUN/Creatinine Ratio 8 Glucose 89 Calcium 8.4 Blood Type A POSITIVE Antibody Screen Negative Crossmatch See Detail Assessment and Plan 1. GI bleed with acute on chronic anemia - no further bleeding since admission, H/H improved following blood transfusion. Will plan for EGD today, cont PPI. ?history of IBD, however pt unable to provide details and does not see GI regularly per history today.
--- NOTE | 2020-06-10 13:46 | Anesthesia Consultation ---
Anesthesia Consult and Med Hx Date of service: 06/10/20 - Airway Anesthetic Teeth Evaluation: Edentulous ROM Head & Neck: Adequate Mental/Hyoid Distance: Adequate Mallampati Class: Class III Intubation Access Assessment: Possibly Difficult - Pre-Operative Health Status ASA Pre-Surgery Classification: ASA3 Proposed Anesthetic Plan: MAC - Pulmonary Hx Smoking: Yes (CIGARETTES 2 TO 3 CIGS PD X 43 YRS) Hx Asthma: No SOB: Yes (09/2015 echo in chart.) COPD: No Hx Pneumonia: No Hx Sleep Apnea: No - Cardiovascular System Hx Hypertension: Yes (FOR YRS, DR. 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
[2020-06-10] MEDS ORDERED: propofoL 200 MG/20 ML VIAL IV ONE (13:47)
--- NOTE | 2020-06-10 13:47 | Anesthesia Day of Surgery ---
Anesthesia Day of Surgery - Day of Surgery Patient Examined: Yes Patient H&P Reviewed: Yes Patient is NPO: Yes
--- NOTE | 2020-06-10 14:06 | Operative Report ---
Operative Report Operative Report: Esophagogastroduodenoscopy Procedure Note with biopsies Date of procedure: 06/10/2020 Endoscopist: Stanley Knutson Pre-op diagnosis/indication: GI bleed Post-op diagnosis: Duodenal polyps, duodenitis, hiatal hernia MEDICATIONS: MAC COMPLICATIONS: No immediate complications ESTIMATED BLOOD LOSS: Minimal DESCRIPTION OF PROCEDURE: After consent was obtained, the patient was placed in the left lateral decubitis position. The olympus endoscope was inserted into the patient's mouth under direct vision and advanced to the 2nd portion of the duodenum without difficulty. The patient tolerated the procedure well. The views of the mucosa were good. The patient's vital signs were monitored cont inuously throughout the procedure. FINDINGS: There was a moderate sized hiatal hernia, otherwise the esophagus appeared normal. The stomach appeared normal. There were a few polypoid lesions in the duodenal bulb/first portion of the duodenum and one in the 2nd portion of the duodenum. Biopsies were obtained. Mild erythematous mucosa in the first portion of the duodenum. Bile seen throug hout the duodenum. IMPRESSION: 1. Polypoid duodenal lesions. Biopsied to rule out adenoma. 2. Mild duodenitis 3. Hiatal hernia No obvious source of bleeding seen during upper endoscopy. RECOMMENDATIONS: -follow-up pathology -recommend colonoscopy; discussed with pt recommendations for prep this evening and colonoscopy tomorrow. He states he is not willing to drink prep this evening for procedure tomorrow. he understands risks of not having procedure done and expressed understanding. can resume full liquid diet today, will follow-up tomorrow if he remains inpatient.
--- NOTE | 2020-06-10 15:27 | Discharge Summary ---
Providers - Providers Date of Admission: 06/09/20 13:52 Date of discharge: 06/10/20 Attending physician: CLARISSA AKINS 06/09/20 15:09 Consult to Physician [CONS] Routine Comment: Consulting Provider: CHUY AHAS Physician Instructions: Reason For Exam: GI bleed 06/09/20 23:13 Consult to Physician [CONS] Routine Comment: Consulting Provider: SABINO GAUTAM Physician Instructions: Reason For Exam: peritoneal dialysis Primary care physician: AUTO RENTAL CLERK Hospitalization Condition: Stable Hospital course: The patient is a 59 yo aam with h/o ESRD, CHF, ? IBD presenting with dark/black appearing stools for 2 days. Pt instructed to come to hospital due to reported symptoms, states he has multiple dark blood and black appearing stools prior to admission. His hemoglobin was 6.3 on admission, he was placed on PPI, given 1 unit of packed RBC transfusion. GI was consulted and patient was further evaluated with EGD which showed multiple duodenal lesion, biopsy was obtained, mild jejunitis and hiatal hernia. No obvious source of upper GI bleed found. Patient was recommended for colonoscopy but he refused to do and wanted to follow-up as outpatient. His H&H remained stable, no further dark/black stool noted. Patient was recommended to follow-up with GI as outpatient in a week. Discharge diagnosis: Acute GI bleed, resolved Acute blood loss anemia due to GI bleed, status post transfusion Hypertension stable End-stage renal disease Chronic systolic CHF Tobacco abuse Disposition: TO HOME OR SELFCARE Time spent for discharge: 34 minutes Core Measure Documentation - Palliative Care Palliative Care/ Comfort Measures: Not Applicable - Core Measures Any of the following diagnoses?: none Exam - Physical Exam Narrative exam: General appearance: Present: mild distress - EENT Eyes: Present: PERRL ENT: hearing intact, clear oral mucosa - Neck Neck: Present: supple, normal ROM - Respiratory Respiratory effort: normal Respiratory: bilateral: CTA - Cardiovascular Heart Sounds: Present: S1 & S2. Absent: rub, click - Extremities Extremities: pulses symmetrical, No edema Peripheral Pulses: within normal limits - Abdominal General gastrointestinal: Present: soft, non-tender, non-distended, normal bowel sounds Male genitourinary: Present: normal - Integumentary Integumentary: Present: clear, warm, dry - Musculoskeletal Musculoskeletal: gait normal, strength equal bilaterally - Psychiatric Psychiatric: appropriate mood/affect, intact judgment & insight - Neurologic Neurologic: CNII-XII intact, moves all extremities - Constitutional Vitals: Temp Pulse Resp BP Pulse Ox 98.4 F 84 16 118/77 98 06/10/20 13:55 06/10/20 14:25 06/10/20 14:25 06/10/20 14:25 06/10/20 14:25 Plan Activity: advance as tolerated Weight Bearing Status: Weight Bear as Tolerated Diet: renal Follow up with: PRIMARY CAREMD [Primary Care Provider] - 7 Days
--- NOTE | 2020-06-10 15:51 | Post Anesthesia Evaluation ---
- Post Anesthesia Evaluation Patient Participated: Yes Airway Patent: Yes Stable Respiratory Function: Yes Nausea/Vomiting: No Temp > 96.8F: Yes Pain Manageable: Yes Adequeate Hydration: Yes Anesthesia Complications: No
[2020-06-10 16:15] VITALS: BP 154/83
== END 2020-06-10 17:42 | disposition home or self-care (01) ==
LOC: ED 10:49 → 4A 13:52 → INTOOBSV 13:52
PROVIDERS: ADMIT Internal Medicine; ATTEND Internal Medicine
DX: K92.2 Gastrointestinal hemorrhage, unspecified (principal); I13.2 Hypertensive heart and chronic kidney disease with heart failure and with stage 5 chronic kidney disease, or end stage renal disease; I50.9 Heart failure, unspecified; N18.6 End stage renal disease; D63.1 Anemia in chronic kidney disease; K21.9 Gastro-esophageal reflux disease without esophagitis; G43.909 Migraine, unspecified, not intractable, without status migrainosus; R55 Syncope and collapse; F17.213 Nicotine dependence, cigarettes, with withdrawal; Z90.49 Acquired absence of other specified parts of digestive tract
CPT/HCPCS: 36415; 36430; 43239; 80048; 80053; 85025; 85610; 85730; 86850; 86900; 86901; 86920; 88305; 96361; 96374; 96375; 96376; 99291; C9113; G0378; J1940; J2704; J7030; J7040; P9016

== ENCOUNTER 2020-06-20 12:04 | Outpatient (CLI) | payer MEDICARE ==
[2020-06-20 13:07] LABS: Hematocrit 25.3 % (35.5-45.6); Hemoglobin 8.7 gm/dl (11.8-15.2)
== END 2020-06-20 12:05 | disposition home or self-care (01) ==
LOC: LAB 12:04
PROVIDERS: ATTEND Internal Medicine Nephrology
DX: D64.9 Anemia, unspecified (principal)
CPT/HCPCS: 36415; 85014; 85018

== ENCOUNTER 2020-11-01 06:51 | Day surgery (SDC) | payer MEDICARE ==
[2020-11-01] MEDS ORDERED: SODIUM CHLORIDE 0.9% 1000 ML 1,000 ML IV SCH (07:00)
[2020-11-01] MEDS ORDERED: WATER FOR IRRIG STERILE 250 ML BOTTLE IR ONE (07:24)
[2020-11-01] MEDS ORDERED: WATER FOR IRRIG STERILE 1,000 ML BOTTLE ONE (07:25)
--- NOTE | 2020-11-01 07:34 | Anesthesia Consultation ---
Anesthesia Consult and Med Hx Date of service: 11/01/20 - Airway Anesthetic Teeth Evaluation: Poor (multiple broken teeth), Partials (upper) ROM Head & Neck: Adequate Mallampati Class: Class II Intubation Access Assessment: Probably Good - Pre-Operative Health Status ASA Pre-Surgery Classification: ASA3 Proposed Anesthetic Plan: MAC - Pulmonary Hx Smoking: Yes (CIGARETTES 2 TO 3 CIGS PD X 43 YRS) Hx Asthma: No SOB: Yes (09/2015 echo in chart.) COPD: No Hx Pneumonia: No Hx Sleep Apnea: No - Cardiovascular System Hx Hypertension: Yes (FOR YRS, DR. 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
--- NOTE | 2020-11-01 07:34 | Anesthesia Day of Surgery ---
Anesthesia Day of Surgery - Day of Surgery Patient Examined: Yes Patient H&P Reviewed: Yes Patient is NPO: Yes
[2020-11-01] MEDS ORDERED: LIDOCAINE MPF (2%) 20 MG/1 ML VIAL 5 ML ONE (08:05)
[2020-11-01] MEDS ORDERED: propofoL 200 MG/20 ML VIAL IV ONE (08:05)
--- NOTE | 2020-11-01 09:15 | Short Stay Summary ---
Short Stay Documentation Date of service: 11/01/20 Narrative H&P: The patient presents for evaluation of unexplained recent GI bleeding manifested by melena. EGD was negative at the time of hospital evaluation. - History Past Medical History: anemia, COPD, ESRD, heart failure, hypertension Past Surgical History: No surgical history Social history: no significant social history - Allergies and Medications Current Medications: Allergies No Known Allergies Allergy (Verified 06/09/20 15:27) Home Medications Medication Instructions Recorded Confirmed Last Taken Type Albuterol Mdi (or & Nicu Only) 2 puff IH QID PRN #1 inhalation 04/01/17 11/01/20 10/31/20 09:00 Rx [ProAir HFA Inhaler] Calcium Acetate 667 mg PO DAILY 04/20/20 11/01/20 10/31/20 09:00 History Centrum Men's Tablet 1 tab PO DAILY 04/20/20 11/01/20 10/31/20 09:00 History Cinacalcet 30 mg PO DAILY 04/20/20 11/01/20 10/31/20 09:00 History Dialyvite with Zinc Tablet 1 tab PO DAILY 04/20/20 11/01/20 10/31/20 09:00 History Magnesium 250 mg PO BID 04/20/20 11/01/20 10/31/20 17:00 History Triamcinolone 0.1% 1 1000units TRANSDERMA DAILY 04/20/20 11/01/20 10/31/20 09:00 History Vit B12/Folic Acid/B6/Aa No.15 1,000 mg PO DAILY 04/20/20 11/01/20 10/31/20 09:00 History amLODIPine 10 mg PO DAILY 06/09/20 11/01/20 10/31/20 09:00 History AtorvaSTATin 40 mg PO HS 11/01/20 11/01/20 10/31/20 21:00 History Benadryl 25 mg PO HS 11/01/20 11/01/20 10/31/20 21:00 History Diclofenac 1 TRANSDERMA QID 11/01/20 10/31/20 19:00 History Fluticasone Propionate 1 spray INTRANASAL DAILY 11/01/20 11/01/20 10/31/20 09:00 History Vitamin D3 2,000 units 11/01/20 10/31/20 09:00 History carvediloL 12.5 mg PO DAILY 11/01/20 11/01/20 10/31/20 09:00 History hydrALAZINE 100 mg PO TID 11/01/20 11/01/20 10/31/20 19:00 History Active Medications Sodium Chloride (Nacl 0.9% 1000 Ml) 1,000 mls @ 50 mls/hr IV DIRECT THOMAS Last Admin: 11/01/20 07:50 Dose: 50 mls/hr Documented by: - Physical exam General appearance: no acute distress, well-nourished Integumentary: no rash, no growths, no abnormal pigmentation HEENT: Atraumatic, PERRLA, EOMI, Mucous membr. moist/pink Lungs: Clear to auscultation, Normal air movement Breasts: deferred Heart: Regular rate, Normal S1, Normal S2, No murmurs Gastrointestinal: normoactive bowel sounds, no tenderness, no distended, no masses, no guarding, no organomegaly, no obese Male Genitourinary: deferred Rectal Exam: normal exam-external/orifice, normal rectal tone, no mass Extremities: no ischemia, pulses intact, pulses symmetrical, No edema, normal temperature, normal color, Full ROM Neurological: Normal gait, Normal speech, Strength at 5/5 X4 ext, Normal tone, Sensation intact, Cranial nerves 3-12 NL - Brief post op/procedure progress note Date of procedure: 11/01/20 Findings: see dictation Estimated blood loss: minimal Pathology: list (1. cecal polyp, 2 descending colon polyp) Specimen disposition: to lab Condition: stable - Disposition Condition at discharge: Good Disposition: DC-01 TO HOME OR SELFCARE - Discharge Diagnoses (1) GI bleed Status: Resolved Qualifiers: Short Stay Discharge Plan Activity: other (no driving for 24 hours) Weight Bearing Status: Weight Bear as Tolerated Diet: renal Follow up with: TAMIKA YOUNG MD [Primary Care Provider] - 7 Days
--- NOTE | 2020-11-01 09:20 | Operative Report ---
Operative Report Operative Report: Date of procedure: 11/01/2020 Preprocedure diagnosis: Recent GI bleeding manifested by melena and transfusion requirements. Unremarkable EGD at the time of hospital evaluation. Rule out right colon source of blood loss. Post procedure diagnosis: Extensive diverticulosis including the cecum. Small polyps of the cecum and descending colon. Procedure: Colonoscopy to the cecum with cold snare polypectomy x2. Endoscopist: Dr. Alexander Anesthesia: Monitored anesthesia care per anesthesia department Estimated blood loss: 0 Medications: Monitored anesthesia care. See separate report by anesthesia for details. After careful discussion of the nature and purpose of the procedure as well as details of the technique risks benefits and alternatives the patient gave consent. Please see recent history and physical from the office. The patient was placed in the left lateral decubitus position and medicated per anesthesia. A rectal exam was performed sphincter tone was normal there were no masses palpable. The Olympus video colonoscope was passed transanally and advanced under continuous direct vision without difficulty to the cecum. The colon was well prepared. The cecum revealed a 5 mm pedunculated polyp which was removed with a cold snare and retrieved by suction. There were scattered diverticula throughout the cecum. The ascending colon revealed scattered diverticula but otherwise was normal and on forward and retroflexed views. The transverse colon, descending colon, and sigmoid colon revealed multiple diverticula throughout. There was a 5 mm pedunculated descending colon polyp which was removed with cold snare resection and retrieved by suction. The rectum was normal on forward and retroflexed views. The procedure was well-tolerated overall and the patient was observed in recovery. Conclusions: Diverticulosis throughout the colon. Small polyps in the cecum and descending colon. Plan: Await pathology. Repeat colonoscopy in 5 years. Signed electronically: Brendan Alexander M.D.
[2020-11-01 09:24] VITALS: BP 143/90
--- NOTE | 2020-11-01 16:24 | Post Anesthesia Evaluation ---
- Post Anesthesia Evaluation Patient Participated: Yes Airway Patent: Yes Stable Respiratory Function: Yes Nausea/Vomiting: No Temp > 96.8F: Yes Pain Manageable: Yes Adequeate Hydration: Yes Anesthesia Complications: No Block Receding Appropriately: Not Applicable Patient on Ventilator: No
== END 2020-11-01 06:52 | disposition home or self-care (01) ==
LOC: GIO 06:51
PROVIDERS: ATTEND Internal Medicine Gastroenterology
DX: K92.2 Gastrointestinal hemorrhage, unspecified (principal); K92.1 Melena; D12.0 Benign neoplasm of cecum; D12.4 Benign neoplasm of descending colon; K21.9 Gastro-esophageal reflux disease without esophagitis; I13.2 Hypertensive heart and chronic kidney disease with heart failure and with stage 5 chronic kidney disease, or end stage renal disease; N18.6 End stage renal disease; I50.23 Acute on chronic systolic (congestive) heart failure; F17.210 Nicotine dependence, cigarettes, uncomplicated; Z98.890 Other specified postprocedural states; Z90.49 Acquired absence of other specified parts of digestive tract; Z79.899 Other long term (current) drug therapy
CPT/HCPCS: 45385; 88305; J2704; J7030

== ENCOUNTER 2020-12-22 13:44 | Inpatient (IN) | payer MEDICARE ==
--- NOTE | 2020-12-22 14:30 | Event Note ---
ED Screening Note Date of service: 12/22/20 Time: 14:26 ED Screening Note: 60-year-old male patient with history of end-stage renal disease on peritoneal dialysis presents to the emergency department with complaints of epigastric pain and abdominal distention starting yesterday. Febrile and tachycardic in triage. General: Awake, appropriately interactive, no acute distress. Neck: Supple. Full range of motion intact. Cardiovascular: Tachycardic. Normal peripheral perfusion. Pulmonary: No respiratory distress. Patient is speaking normally without use of accessory muscles. Abdomen: Firm, distended, (+) epigastric tenderness. Skin: No apparent rashes or lesions. Neurological: No facial asymmetry. Speech is clear. Follows commands. Patient is alert and oriented. Musculoskeletal: Moves all four extremities spontaneously with normal range of motion. Psych: Cooperative. Appropriate mood and affect. Sepsis protocol initiated. I have greeted and performed a focused rapid initial assessment of this patient. A comprehensive ED assessment and evaluation of the patient, analysis of all test results, and completion of the medical decision-making process will be conducted by additional ED providers. This initial assessment/diagnostic orders/clinical plan/treatment(s) is/are subject to change based on patients health status, clinical progression and re-assessment. Further treatment and workup at subsequent clinical provider's discretion. Patient/guardian urged not to elope from the ED as their condition may be serious if not clinically assessed and managed.
[2020-12-22 15:01] LABS: Hemoglobin 11.2 gm/dl (11.8-15.2); Mean Corpuscular HGB Conc 32 % (32-34); Mean Corpuscular Volume 90 fl (84-94); Platelet Count 221 K/mm3 (140-440); Red Blood Count 3.88 M/mm3 (3.65-5.03); Red Cell Distribution Width 16.7 % (13.2-15.2)
[2020-12-22 15:10] LABS: INR 1.07 (0.87-1.13)
[2020-12-22 15:11] LABS: Partial Thromboplastin Time 25.1 Sec. (24.2-36.6)
[2020-12-22] MEDS ORDERED: ACETAMINOPHEN 500 MG TAB PO ONE (15:15)
[2020-12-22] MEDS ORDERED: CEFEPIME/NS 2 GM/100 ML 2 GM/100 ML BAG IV ONE (15:15)
[2020-12-22 15:20] LABS: Albumin 4.3 g/dL (3.9-5); Calcium 8.6 mg/dL (8.4-10.2)
[2020-12-22 16:18] LABS: RBC Morphology Normal; Total Cells Counted 100
[2020-12-22] MEDS ORDERED: VANCOMYCIN 1,750 MG in SODIUM CHLORIDE 0.9% 500 ML 500 ML IV ONE (18:00)
[2020-12-22] MEDS ORDERED: ONDANSETRON 4 MG/2 ML INJ IV ONE (18:01)
[2020-12-22] MEDS ORDERED: MORPHINE 2 MG/1 ML INJ IV ONE (18:01)
--- NOTE | 2020-12-22 18:35 | Emergency Department Report ---
ED Abdominal Pain HPI - General Chief Complaint: Abdominal Pain Stated Complaint: ABD PAIN Time Seen by Provider: 12/22/20 18:01 Source: patient Mode of arrival: Wheelchair Limitations: Physical Limitation - History of Present Illness Initial Comments: 60-year-old male, history of end-stage renal disease on peritoneal dialysis, presents to ED with abdominal pain since last night after eating [employer]. Patient reports periumbilical pain with associated fever, nausea, and vomiting. Patient denies any diarrhea. Denies any abdominal distention. Patient states had partial dialysis run yesterday at home but didn't finish because of the pain. Patient reports he received first dose of Moderna COVID-19 vaccine approximately 3 weeks ago. Past surgical history: Appendectomy Dock Manager: Dr. Gilmer EUBANKS Complaint: abdominal pain -: Last night Location: periumbilical Radiation: none Migration to: no migration Severity: moderate Severity scale (0 -10): 10 Quality: cramping Consistency: constant Improves With: nothing Worsens With: nothing Associated Symptoms: nausea, vomiting, fever. denies: diarrhea - Related Data Home Medications Medication Instructions Recorded Confirmed Last Taken Calcium Acetate 667 mg PO DAILY 04/20/20 11/01/20 10/31/20 09:00 Centrum Men's Tablet 1 tab PO DAILY 04/20/20 11/01/20 10/31/20 09:00 Cinacalcet 30 mg PO DAILY 04/20/20 11/01/20 10/31/20 09:00 Dialyvite with Zinc Tablet 1 tab PO DAILY 04/20/20 11/01/20 10/31/20 09:00 Magnesium 250 mg PO BID 04/20/20 11/01/20 10/31/20 17:00 Triamcinolone 0.1% 1 1000units TRANSDERMA DAILY 04/20/20 11/01/20 10/31/20 09:00 Vit B12/Folic Acid/B6/Aa No.15 1,000 mg PO DAILY 04/20/20 11/01/20 10/31/20 09:00 amLODIPine 10 mg PO DAILY 06/09/20 11/01/20 10/31/20 09:00 AtorvaSTATin 40 mg PO HS 11/01/20 11/01/20 10/31/20 21:00 Benadryl 25 mg PO HS 11/01/20 11/01/20 10/31/20 21:00 Diclofenac 1 TRANSDERMA QID 11/01/20 10/31/20 19:00 Fluticasone Propionate 1 spray INTRANASAL DAILY 11/01/20 11/01/20 10/31/20 09:00 Vitamin D3 2,000 units 11/01/20 10/31/20 09:00 carvediloL 12.5 mg PO DAILY 11/01/20 11/01/20 10/31/20 09:00 hydrALAZINE 100 mg PO TID 11/01/20 11/01/20 10/31/20 19:00 Previous Rx's Medication Instructions Recorded Last Taken Type Albuterol Mdi (or & Nicu Only) 2 puff IH QID PRN #1 inhalation 04/01/17 10/31/20 09:00 Rx [ProAir HFA Inhaler] Allergies Allergy/AdvReac Type Severity Reaction Status Date / Time No Known Allergies Allergy Verified 06/09/20 15:27 ED Review of Systems ROS: Stated complaint: ABD PAIN Other details as noted in HPI Comment: All other systems reviewed and negative Constitutional: fever Gastrointestinal: abdominal pain, nausea, vomiting. denies: diarrhea ED Past Medical Hx - Past Medical History Previous Medical History?: Yes Hx Hypertension: Yes (FOR YRS, DR. GREEN- PCP) Hx Heart Attack/AMI: No Hx Congestive Heart Failure: Yes (IN 2013) Hx Diabetes: No Hx GERD: Yes Hx Renal Disease: Yes (CKD STAGE 4) Hx Sickle Cell Disease: No Hx Headaches / Migraines: Yes Hx Seizures: No Hx Asthma: No Hx COPD: No Hx Dementia: No Hx HIV: No Additional medical history: Crohns - Surgical History Past Surgical History?: Yes Hx Cholecystectomy: Yes ([place] 1998) Hx Appendectomy: Yes ([place] 2007) - Social History Smoking Status: Former Smoker Substance Use Type: None - Medications Home Medications: Home Medications Medication Instructions Recorded Confirmed Last Taken Type Albuterol Mdi (or & Nicu Only) 2 puff IH QID PRN #1 inhalation 04/01/17 11/01/20 10/31/20 09:00 Rx [ProAir HFA Inhaler] Calcium Acetate 667 mg PO DAILY 04/20/20 11/01/20 10/31/20 09:00 History Centrum Men's Tablet 1 tab PO DAILY 04/20/20 11/01/20 10/31/20 09:00 History Cinacalcet 30 mg PO DAILY 04/20/20 11/01/20 10/31/20 09:00 History Dialyvite with Zinc Tablet 1 tab PO DAILY 04/20/20 11/01/20 10/31/20 09:00 History Magnesium 250 mg PO BID 04/20/20 11/01/20 10/31/20 17:00 History Triamcinolone 0.1% 1 1000units TRANSDERMA DAILY 04/20/20 11/01/20 10/31/20 09:00 History Vit B12/Folic Acid/B6/Aa No.15 1,000 mg PO DAILY 04/20/20 11/01/20 10/31/20 09:00 History amLODIPine 10 mg PO DAILY 06/09/20 11/01/20 10/31/20 09:00 History AtorvaSTATin 40 mg PO HS 11/01/20 11/01/20 10/31/20 21:00 History Benadryl 25 mg PO HS 11/01/20 11/01/20 10/31/20 21:00 History Diclofenac 1 TRANSDERMA QID 11/01/20 10/31/20 19:00 History Fluticasone Propionate 1 spray INTRANASAL DAILY 11/01/20 11/01/20 10/31/20 09:00 History Vitamin D3 2,000 units 11/01/20 10/31/20 09:00 History carvediloL 12.5 mg PO DAILY 11/01/20 11/01/20 10/31/20 09:00 History hydrALAZINE 100 mg PO TID 11/01/20 11/01/20 10/31/20 19:00 History ED Physical Exam - General Limitations: Physical Limitation General appearance: alert, in no apparent distress - Head Head exam: Present: atraumatic, normocephalic - Eye Eye exam: Present: normal appearance, EOMI - ENT ENT exam: Present: mucous membranes moist - Neck Neck exam: Present: normal inspection - Respiratory Respiratory exam: Present: normal lung sounds bilaterally. Absent: respiratory distress - Cardiovascular Cardiovascular Exam: Present: normal rhythm, tachycardia - GI/Abdominal GI/Abdominal exam: Present: soft, distended (slightly), tenderness (periumbilical ) - Extremities Exam Extremities exam: Present: normal inspection - Neurological Exam Neurological exam: Present: alert, oriented X3 - Psychiatric Psychiatric exam: Present: normal affect, normal mood - Skin Skin exam: Present: warm, dry, intact, normal color ED Course Vital Signs 12/22/20 12/22/20 12/22/20 14:15 15:49 18:00 Temperature 101.2 F H Pulse Rate 102 H 109 H Respiratory 18 18 32 H Rate Blood Pressure 171/97 Blood Pressure 121/85 [Right] O2 Sat by Pulse 95 97 Oximetry 12/22/20 12/22/20 12/22/20 18:23 18:31 18:45 Temperature Pulse Rate 102 H 100 H 100 H Respiratory 20 20 18 Rate Blood Pressure 115/64 141/71 Blood Pressure [Right] O2 Sat by Pulse 96 95 95 Oximetry 12/22/20 19:00 Temperature Pulse Rate 98 H Respiratory 20 Rate Blood Pressure 111/68 Blood Pressure [Right] O2 Sat by Pulse 94 Oximetry - Consultations Consultation #1: 12/22/20 19:[address] Sanchez, general surgery on-call. Relayed CT findings. States will see patient in the morning. Antibiotics already on board. Recommends NG tube. Consultation #2: 12/22/20 19:[address] Cornejo, nephrology. Blood cell count and differential of peritoneal fluid. Will consult on patient. ED Medical Decision Making - Lab Data Result diagrams: 12/22/20 14:38 12/22/20 14:38 - Radiology Data Radiology results: report reviewed, image reviewed - Medical Decision Making 60-year-old male, history of stage renal disease, on peritoneal dialysis, presents to ED with abdominal pain. Patient has periumbilical tenderness on exam. He reports some nausea and vomiting. Symptoms began last night. Patient initially febrile with temp of 101. Electrolytes are normal. WBCs normal. Initial lactic acid of 3.6. Blood cultures drawn, Vanco and cefepime given. Repeat lactic acid improved to 2.8. CT scan shows possible small bowel obstruction. Spoke with general surgeon, who recommends placement of NG tube. Also spoke with bench worker, who recommends obtaining peritoneal fluid sample to rule out SBP. Vital signs are stable. Patient will be admitted by hospitalist, Dr. Hung, for further management. - Differential Diagnosis SBP, small bowel obstruction, gastroenteritis Critical care attestation.: If time is entered above; I have spent that time in minutes in the direct care of this critically ill patient, excluding procedure time. ED Disposition Clinical Impression: Small bowel obstruction, SBP (spontaneous bacterial peritonitis) Disposition: DC-09 OP ADMIT IP TO THIS HOSP Is pt being admited?: Yes Condition: Stable Referrals: TAMIKA YOUNG MD [Primary Care Provider] - 3-5 Days Time of Disposition: 19:34
--- NOTE | 2020-12-22 19:04 | Cat Scan Report ---
CT ABDOMEN AND PELVIS WITHOUT CONTRAST INDICATION: abd pain CONTRAST: Without IV COMPARISON: 04/18/[address] scans at this location are performed using CT dose reduction for ALARA by means of automated e xposure control. FINDINGS: Lung bases are clear of infiltrates with mild atelectatic change seen. Small pericardial ef fusion is noted. Dialysis catheter is again seen ending into and coiled in the pelvis. No pneumoperitoneum is noted. M oderate ascites is seen which may just relate to peritoneal dialysis. Gallbladder has been removed. No biliary dilatation is seen. Multiple bilateral renal lesions, probab ly cysts, are similar to previous study though cysts are mildly larger on the right. Small area of pe ripheral calcification at the upper pole tip of the right kidney is mildly more prominent without obv ious associated mass. The left kidney shows a small hyperdense lesion measuring 6 mm arising posterio rly from the midportion which probably is a small hyperdense cyst and is similar to prior study. Mild atrophy is seen of both kidneys. No urinary tract calculi or evidence of obstruction are noted. Uret ers and bladder show no abnormalities. Colonic diverticulosis is seen without evidence of diverticulitis. What appears to be a portion of th e appendix is identified without obvious abnormality. Prominent mid to distal small bowel dilatation is seen with multiple air-fluid levels noted. What appears to be a chronically dilated segment of sma ll bowel the right lower quadrant is seen with internal calcifications again noted and this is in an area of surgical change. The distal ileum appears to show wall edema which is more obvious than previ ous study. Many jejunal loops are not dilated. The colon shows only a small amount of air and stool a nd is mostly decompressed. The right colon, though not distended well for evaluation, appears to show wall edema as well. No organized fluid collections are seen to suggest an abscess. IMPRESSION: 1. Prominent small bowel dilatation is seen. This is more prominent than on previous study though pre viously there was some dilatation noted. More proximal portions of the small bowel are not dilated ho wever. There likely is an element of chronic obstructive change but there may be distal obstruction. The distal ileum and colon appear to show moderate wall thickening and probably are involved in an in flammatory process such as enterocolitis. Ischemia is not excluded though I do not see prominent athe rosclerotic changes and no mesenteric atherosclerotic changes are seen. 2. Indeterminate small renal lesions. Recommend follow-up. 3. Moderate ascites is noted but this likely relates to peritoneal dialysis. Signer Name: Lex Rowley MD Signed: 12/22/2020 7:00 PM Workstation Name: [id number]
[2020-12-22 19:15] LABS: Bilirubin,Urine NEG (Negative); Blood,Urine NEG (Negative); Color,Urine Yellow (Yellow); Urobilinogen,Urine < 2.0 mg/dL (<2.0); WBC,Urine < 1.0 /HPF (0.0-6.0)
[2020-12-22 19:18] LABS: Protein,Urine >500 mg/dL (Negative)
--- NOTE | 2020-12-22 19:40 | History and Physical Report ---
History of Present Illness Chief complaint: My stomach hurts History of present illness: 60 YO Male with ESRD on PD, GERD, Crohn's Disease, Nicotine Dependence, HTN, Systolic CHF(EF 35%) presents to ED for evaluation. Patient reports "my stomach started hurting last night". Patient states that he had experienced abdominal pain which began overnight shortly after eating fast food. Patient states that his pain is 10/10, periumbilical, constant, associated with fever, nausea, as well as multiple episodes of vomiting. Patient reports inability to undergo peritoneal dialysis. EMS was notified and upon arrival the patient was found to be in distress and subsequently transported to [facility] for further care and evalu ation of the aforementioned symptoms. Patient seen and evaluated in the emergency department. All lab and imaging studies reviewed. Patient underwent CT scan of the abdomen and pelvis which revealed evidence of a partial small bowel obstruction. Patient found to have symptoms consistent with spontaneous bacterial peritonitis. Patient also found to have end-stage renal disease on peritoneal dialysis. Patient admitted to medical floor and treated with empiric IV antibiotic therapy. General surgery team consulted in ED. Nephrology team consulted in ED. Patient denies fever, chills, chest pain, palpitations, productive cough, skin rash, recent ill contacts, ingestion of food/water from new or different sources, or known exposure to COVID-19. Prior admission on reviewed. All medication listed at time of admission has been reconciled. Advanced care planning conducted in ED. Past History Past Medical History: acute [place], ESRD, heart failure, hypertension, other (See HPI) Past Surgical History: appendectomy, cholecystectomy Medications and Allergies Allergies Allergy/AdvReac Type Severity Reaction Status Date / Time No Known Allergies Allergy Verified 06/09/20 15:27 Home Medications Medication Instructions Recorded Confirmed Last Taken Type Albuterol Mdi (or & Nicu Only) 2 puff IH QID PRN #1 inhalation 04/01/17 11/01/20 10/31/20 09:00 Rx [ProAir HFA Inhaler] Calcium Acetate 667 mg PO DAILY 04/20/20 11/01/20 10/31/20 09:00 History Centrum Men's Tablet 1 tab PO DAILY 04/20/20 11/01/20 10/31/20 09:00 History Cinacalcet 30 mg PO DAILY 04/20/20 11/01/20 10/31/20 09:00 History Dialyvite with Zinc Tablet 1 tab PO DAILY 04/20/20 11/01/20 10/31/20 09:00 History Magnesium 250 mg PO BID 04/20/20 11/01/20 10/31/20 17:00 History Triamcinolone 0.1% 1 1000units TRANSDERMA DAILY 04/20/20 11/01/20 10/31/20 09:00 History Vit B12/Folic Acid/B6/Aa No.15 1,000 mg PO DAILY 04/20/20 11/01/20 10/31/20 0 9:00 History amLODIPine 10 mg PO DAILY 06/09/20 11/01/20 10/31/20 09:00 History AtorvaSTATin 40 mg PO HS 11/01/20 11/01/20 10/31/20 21:00 History Benadryl 25 mg PO HS 11/01/20 11/01/20 10/31/20 21:00 History Diclofenac 1 TRANSDERMA QID 11/01/20 10/31/20 19:00 History Fluticasone Propionate 1 spray INTRANASAL DAILY 11/01/20 11/01/20 10/31/20 09:00 History Vitamin D3 2,000 units 11/01/20 10/31/20 09:00 History carvediloL 12.5 mg PO DAILY 11/01/20 11/01/20 10/31/20 09:00 History hydrALAZINE 100 mg PO TID 11/01/20 11/01/20 10/31/20 19:00 History Review of Systems Constitutional: no weight loss, no weight gain, no fever, no chills Ears, nose, mouth and throat: no ear pain, no tinnitis, no nose pain, no nasal d ischarge, no sinus pressure Cardiovascular: no chest pain, no orthopnea, no edema Respiratory: no cough, no cough with sputum, no excessive sputum, no hemoptysis, no dyspnea on exertion Gastrointestinal: abdominal pain, nausea, no diarrhea, no change in bowel habits, no hematemesis Genitourinary Male: no hematuria, no flank pain, no nocturia Rectal: no pain, no incontinence Musculoskeletal: no neck pain, no arm numbness/tingling, no low back pain, no shooting leg pain Integumentary: no rash, no pruritis, no redness, no sores Neurological: no head injury, no paralysis, no parathesias, no tingling Psychiatric: no anxiety, no memory loss, no change in appetite, no disor ientation Endocrine: no polyphagia, no excessive thirst, no polyuria, no excessive sweating Hematologic/Lymphatic: no easy bruising, no easy bleeding Allergic/Immunologic: no urticaria, no allergic rhinitis, no wheezing Exam - Constitutional Vitals: Temp Pulse Resp BP Pulse Ox 101.2 F H 98 H 20 111/68 94 12/22/20 14:15 12/22/20 19:00 12/22/20 19:00 12/22/20 19:00 12/22/20 19:00 General appearance: Present: mild distress - EENT Eyes: Present: PERRL ENT: hearing intact, clear oral mucosa - Neck Neck: Present: supple, normal ROM - Respiratory Respiratory effort: normal Respiratory: bilateral: CTA - Cardiovascular Heart Sounds: Present: S1 & S2. Absent: rub, click - Extremities Extremities: pulses symmetrical, No edema Peripheral Pulses: within normal limits - Abdominal General gastrointestinal: Present: soft, tender, non-distended, normal bowel sounds Male genitourinary: Present: normal - Integumentary Integumentary: Present: clear, warm, dry - Musculoskeletal Musculoskeletal: generalized weakness - Psychiatric Psychiatric: appropriate mood/affect, intact judgment & insight - Neurologic Neurologic: CNII-XII intact, moves all extremities HEART Score - HEART Score Troponin: Troponin T 0.021 ng/mL (0.00-0.029) 12/22/20 14:38 Results - Labs CBC & Chem 7: 12/22/20 14:38 12/22/20 14:38 Labs: Abnormal lab results 12/22/20 12/22/20 12/22/20 Range/Units 14:38 14:38 14:38 Hgb 11.2 L (11.8-15.2) gm/dl Hct 35.0 L (35.5-45.6) % RDW 16.7 H (13.2-15.2) % Seg Neuts % (Manual) 94.0 H (40.0-70.0) % Lymphocytes % (Manual) 5.0 L (13.4-35.0) % Lymphocytes # (Manual) 0.3 L (1.2-5.4) K/mm3 BUN 58 H (9-20) mg/dL Creatinine 13.2 H (0.8-1.3) mg/dL Glucose 113 H (75-100) mg/dL Lactic Acid 3.60 H* (0.7-2.0) mmol/L Total Bilirubin 1.30 H (0.1-1.2) mg/dL Alkaline Phosphatase 155 H (35-129) units/L 12/22/20 12/22/20 Range/Units 16:26 17:47 Hgb (11.8-15.2) gm/dl Hct (35.5-45.6) % RDW (13.2-15.2) % Seg Neuts % (Manual) (40.0-70.0) % Lymphocytes % (Manual) (13.4-35.0) % Lymphocytes # (Manual) (1.2-5.4) K/mm3 BUN (9-20) mg/dL Creatinine (0.8-1.3) mg/dL Glucose (75-100) mg/dL Lactic Acid 2.80 H* 3.10 H* (0.7-2.0) mmol/L Total Bilirubin (0.1-1.2) mg/dL Alkaline Phosphatase (35-129) units/L Assessment and Plan - Patient Problems (1) SBP (spontaneous bacterial peritonitis) Current Visit: Yes Status: Acute Plan to address problem: CT scan abdomen and pelvis, IV antibiotic therapy, surgery team consulted, supportive care. (2) CHF (congestive heart failure) Current Visit: No Status: Acute Qualifiers: Heart failure chronicity: chronic Plan to address problem: Strict I/O, monitor urine output every shift, daily weight, afterload reduction, blood pressure control, supportive care. Diuresis, (3) Nicotine dependence Current Visit: Yes Status: Acute Qualifiers: Nicotine product type: cigarettes Substance use status: in withdrawal Qualified Code(s): F17.213 - Nicotine dependence, cigarettes, with withdrawal Plan to address problem: Smoking cessation counseling, supportive care, behavior change counseling, +15 minutes. (4) Small bowel obstruction Current Visit: Yes Status: Acute Plan to address problem: CT scan abdomen and pelvis, serial abdominal exam, supportive care, bowel rest, NG tube insertion as per surgical recommendation. (5) Advance care planning Current Visit: No Status: Acute Plan to address problem: Disease education conducted, care plan discussed, diagnosis discussed, prognosis discussed, care plan discussed, patient knowledges understanding and agreement with care plan, +30 minutes.
[2020-12-22] MEDS ORDERED: ONDANSETRON 4 MG/2 ML INJ IV PRN (19:42)
[2020-12-22] MEDS ORDERED: ACETAMINOPHEN 325 MG TAB PO PRN (19:42)
[2020-12-22] MEDS ORDERED: ALBUTEROL 2.5 MG/3 ML NEBU IH PRN (19:42)
[2020-12-22 21:48] LABS: Total Cells Counted 100 /mm3
[2020-12-22] MEDS ORDERED: NON-FORMULARY EACH (Atorvastatin 40 MG) PO SCH (22:00)
[2020-12-22] MEDS ORDERED: MAGNESIUM 250 MG PO SCH (22:00)
[2020-12-22] MEDS ORDERED: BENADRYL 25 MG PO SCH (22:00)
[2020-12-22] MEDS: metroNIDAZOLE/NS 500 MG/100 ML 500 MG/100 ML BAG IV SCH (22:27)
[2020-12-22] MEDS: diphenhydrAMINE 25 MG CAP PO SCH ×2 (22:27→22:44)
[2020-12-23] MEDS ORDERED: MORPHINE 2 MG/1 ML INJ IV ONE ×2 (01:24→05:43)
[2020-12-23] MEDS: metroNIDAZOLE/NS 500 MG/100 ML 500 MG/100 ML BAG IV SCH ×3 (05:42→21:10)
[2020-12-23 06:05] LABS: Hematocrit 33.7 % (35.5-45.6); Mean Corpuscular HGB Conc 33 % (32-34); Mean Corpuscular Volume 91 fl (84-94); Platelet Count 179 K/mm3 (140-440); Red Cell Distribution Width 16.9 % (13.2-15.2)
[2020-12-23 06:21] LABS: Albumin 3.6 g/dL (3.9-5); Calcium 7.9 mg/dL (8.4-10.2)
[2020-12-23 07:05] LABS: Anisocytosis 1+; Band Neutrophils # (Manual) 0.5 K/mm3; Platelet Estimate Consistent w Auto; Total Cells Counted 100
[2020-12-23] MEDS ORDERED: MULTIVITAMINS,THER W-MINERALS TAB PO SCH (08:00)
[2020-12-23] MEDS ORDERED: CINACALCET 30 MG TAB PO SCH (08:00)
[2020-12-23] MEDS ORDERED: FOLIC ACID/VIT B COMP W-C 1 MG (RENAL CAPS) PO SCH (08:00)
[2020-12-23] MEDS ORDERED: MAGNESIUM OXIDE 400 MG TAB PO SCH (08:00)
[2020-12-23] MEDS ORDERED: CEFEPIME/NS 2 GM/100 ML 2 GM/100 ML BAG IV SCH (09:00)
[2020-12-23] MEDS ORDERED: [UNRECOGNIZED DRUG - OTHER] PO SCH (10:00)
[2020-12-23] MEDS ORDERED: CALCIUM ACETATE 667 MG CAP PO SCH (10:00)
[2020-12-23] MEDS ORDERED: carvediloL 12.5 MG TAB PO SCH (10:00)
[2020-12-23] MEDS ORDERED: FOLIC ACID PO SCH (10:00)
[2020-12-23] MEDS ORDERED: [UNRECOGNIZED DRUG - OTHER] PO SCH (10:00)
[2020-12-23] MEDS ORDERED: NON-FORMULARY EACH (Calcium Acetate [Calcium Acetate] 667 MG Tablet) PO SCH (10:00)
[2020-12-23] MEDS ORDERED: VIT B12 PO SCH (10:00)
[2020-12-23] MEDS ORDERED: NON-FORMULARY EACH (Cinacalcet 30 MG) PO SCH (10:00)
[2020-12-23] MEDS ORDERED: [UNRECOGNIZED DRUG - OTHER] PO SCH (10:00)
[2020-12-23] MEDS ORDERED: TRIAMCINOLONE 0.1% TRANSDERMA SCH (10:00)
[2020-12-23] MEDS ORDERED: NON-FORMULARY EACH (Carvedilol 12.5 MG) PO SCH (10:00)
[2020-12-23] MEDS ORDERED: B6 PO SCH (10:00)
--- NOTE | 2020-12-23 10:14 | XRay Report ---
ABDOMEN 5 VIEW(S) INDICATION: Small bowel obstruction. Evaluate for perforation. COMPARISON: CT abdomen and pelvis without contrast performed on 12/22/2020. FINDINGS: Bowel gas pattern: Multiple dilated small bowel loops are again seen. An NG tube terminates over the proximal gastric body. Free air: None seen. Stones: None seen. Chest: There are nonspecific left basilar opacities. No other significant abnormality. Additional Findings: No additional significant findings. IMPRESSION: 1. Similar findings of a small bowel obstruction. No radiographic evidence of perforation. 2. Additional findings as above. Signer Name: Kel Velázquez MD Signed: 12/23/2020 10:10 AM Workstation Name: [id number]
--- NOTE | 2020-12-23 10:14 | Consultation ---
History of Present Illness Consult date: 12/23/20 Reason for consult: abdominal pain - History of present illness History of present illness: 60 year old male with a hx of renal failure (PD dependent), HTN, Crohns's dz, presented to ED with a one day hx of acute abdominal pain after eating fast food. He says he has had a similar pain before when he was diagnosed with spontaneous bacterial peritonitis in the past. His CT scan this admission shows dilated small bowel loops suggestive of small bowel obstruction. He says he had n/v prior to arriving at the hospital, and has not passed flatus or stool in two days. Past History Past Medical History: acute [place], ESRD, heart failure, hypertension, other (See HPI) Past Surgical History: appendectomy, cholecystectomy, Other (L inguinal hernia repair) Medications and Allergies Allergies Allergy/AdvReac Type Severity Reaction Status Date / Time No Known Allergies Allergy Verified 06/09/20 15:27 Home Medications Medication Instructions Recorded Confirmed Last Taken Type Albuterol Mdi (or & Nicu Only) 2 puff IH QID PRN #1 inhalation 04/01/17 11/01/20 10/31/20 09:00 Rx [ProAir HFA Inhaler] Calcium Acetate 667 mg PO DAILY 04/20/20 11/01/20 10/31/20 09:00 History Centrum Men's Tablet 1 tab PO DAILY 04/20/20 11/01/20 10/31/20 09:00 History Cinacalcet 30 mg PO DAILY 04/20/20 11/01/20 10/31/20 09:00 History Dialyvite with Zinc Tablet 1 tab PO DAILY 04/20/20 11/01/20 10/31/20 09:00 History Magnesium 250 mg PO BID 04/20/20 11/01/20 10/31/20 17:00 History Triamcinolone 0.1% 1 1000units TRANSDERMA DAILY 04/20/20 11/01/20 10/31/20 09:00 History Vit B12/Folic Acid/B6/Aa No.15 1,000 mg PO DAILY 04/20/20 11/01/20 10/31/20 09:00 History amLODIPine 10 mg PO DAILY 06/09/20 11/01/20 10/31/20 09:00 History AtorvaSTATin 40 mg PO HS 11/01/20 11/01/20 10/31/20 21:00 History Benadryl 25 mg PO HS 11/01/20 11/01/20 10/31/20 21:00 History Diclofenac 1 TRANSDERMA QID 11/01/20 10/31/20 19:00 History Fluticasone Propionate 1 spray INTRANASAL DAILY 11/01/20 11/01/20 10/31/20 09:00 History Vitamin D3 2,000 units 11/01/20 10/31/20 09:00 History carvediloL 12.5 mg PO DAILY 11/01/20 11/01/20 10/31/20 09:00 History hydrALAZINE 100 mg PO TID 11/01/20 11/01/20 10/31/20 19:00 History Active Meds: Active Medications Acetaminophen (Acetaminophen 325 Mg Tab) 650 mg PO Q4H PRN PRN Reason: Pain MILD(1-3)/Fever >100.5/HULL Last Admin: 12/22/20 22:28 Dose: 650 mg Documented by: Albuterol (Albuterol 2.5 Mg/3 Ml Nebu) 2.5 mg IH Q4HRT PRN PRN Reason: Shortness Of Breath Atorvastatin Calcium (Atorvastatin 40 Mg Tab) 40 mg PO QHS [facility] Last Admin: 12/22/20 22:44 Dose: Not Given Documented by: Calcium Acetate (Calcium Acetate 667 Mg Cap) 667 mg PO DAILY [facility] Carvedilol (Carvedilol 12.5 Mg Tab) 12.5 mg PO DAILY [facility] Cinacalcet (Cinacalcet 30 Mg Tab) 30 mg PO QDAY [facility] Diphenhydramine HCl (Diphenhydramine 25 Mg Cap) 25 mg PO QHS [facility] Last Admin: 12/22/20 22:44 Dose: Not Given Documented by: Metronidazole (Flagyl 500 Mg/100 Ml) 500 mg in 100 mls @ 100 mls/hr IV Q8H [facility]OM[facility]; Protocol Last Admin: 12/23/20 05:42 Dose: 100 mls/hr Documented by: Cefepime HCl (Cefepime/Ns 2 Gm/100 Ml) 2 gm in 100 mls @ 200 mls/hr IV Q24H [facility]OM[facility]; Protocol Magnesium Oxide (Magnesium Oxide 400 Mg Tab) 400 mg PO QDAY [facility] Morphine Sulfate (Morphine 2 Mg/1 Ml Inj) 2 mg IV Q4H PRN PRN Reason: Pain, Moderate (4-6) Multivit/Ca Carb/B Cmplx/FA/Prenat (Folic Acid/Vit B Comp W-C 1 Mg (Renal Caps)) 1 cap PO QDAY [facility] Nystatin (Nystatin Cream 15 Gm Tube) 1 applic TP DAILY [facility] Ondansetron HCl (Ondansetron 4 Mg/2 Ml Inj) 4 mg IV Q8H PRN PRN Reason: Nausea And Vomiting Sodium Chloride (Sodium Chloride 0.9% 10 Ml Flush Syringe) 10 ml IV BID [facility] Last Admin: 12/22/20 22:28 Dose: 10 ml Documented by: Sodium Chloride (Sodium Chloride 0.9% 10 Ml Flush Syringe) 10 ml IV PRN PRN PRN Reason: LINE FLUSH Triamcinolone Acetonide (Triamcinolone 0.1% Cream 15 Gm) 1 applic TP DAILY [facility] Review of Systems - Constitutional poor appetite - Cardiovascular no chest pain - Respiratory no cough with sputum - Gastrointestinal abdominal pain, nausea, vomiting Exam Vital Signs Temp Pulse Resp BP Pulse Ox 101.2 F H 102 H 18 121/85 95 12/22/20 14:15 12/22/20 14:15 12/22/20 14:15 12/22/20 14:15 12/22/20 14:15 - General physical appearance Positive: well developed, moderate pain, severe pain, chronically ill - Respiratory Positive: normal expansion, normal respiratory effort - Cardiovascular Heart Sounds: Present: S1 & S2 - Extremities Extremities: no ischemia - Abdomen Abdomen: Present: soft, distended, surgical scars, other (generalized tenderness to palpation). Absent: guarding, rigid, wound Results - Labs 12/23/20 05:22 12/23/20 05:22 Abnormal lab results 12/22/20 12/22/20 12/22/20 Range/Units 14:38 14:38 14:38 WBC (4.5-11.0) K/mm3 Hgb 11.2 L (11.8-15.2) gm/dl Hct 35.0 L (35.5-45.6) % RDW 16.7 H (13.2-15.2) % Seg Neuts % (Manual) 94.0 H (40.0-70.0) % Lymphocytes % (Manual) 5.0 L (13.4-35.0) % Seg Neutrophils # Man (1.8-7.7) K/mm3 Lymphocytes # (Manual) 0.3 L (1.2-5.4) K/mm3 Potassium (3.6-5.0) mmol/L BUN 58 H (9-20) mg/dL Creatinine 13.2 H (0.8-1.3) mg/dL Glucose 113 H (75-100) mg/dL Lactic Acid 3.60 H* (0.7-2.0) mmol/L Calcium (8.4-10.2) mg/dL Total Bilirubin 1.30 H (0.1-1.2) mg/dL AST (5-40) units/L ALT (7-56) units/L Alkaline Phosphatase 155 H (35-129) units/L Total Protein (6.3-8.2) g/dL Albumin (3.9-5) g/dL 12/22/20 12/22/20 12/23/20 Range/Units 16:26 17:47 05:22 WBC (4.5-11.0) K/mm3 Hgb (11.8-15.2) gm/dl Hct (35.5-45.6) % RDW (13.2-15.2) % Seg Neuts % (Manual) (40.0-70.0) % Lymphocytes % (Manual) (13.4-35.0) % Seg Neutrophils # Man (1.8-7.7) K/mm3 Lymphocytes # (Manual) (1.2-5.4) K/mm3 Potassium (3.6-5.0) mmol/L BUN (9-20) mg/dL Creatinine (0.8-1.3) mg/dL Glucose (75-100) mg/dL Lactic Acid 2.80 H* 3.10 H* 2.30 H* (0.7-2.0) mmol/L Calcium (8.4-10.2) mg/dL Total Bilirubin (0.1-1.2) mg/dL AST (5-40) units/L ALT (7-56) units/L Alkaline Phosphatase (35-129) units/L Total Protein (6.3-8.2) g/dL Albumin (3.9-5) g/dL 0412/23/20 12/23/20 Range/Units 05:22 05:22 06:35 WBC 12.1 H (4.5-11.0) K/mm3 Hgb 11.0 L (11.8-15.2) gm/dl Hct 33.7 L (35.5-45.6) % RDW 16.9 H (13.2-15.2) % Seg Neuts % (Manual) 93.0 H (40.0-70.0) % Lymphocytes % (Manual) 1.0 L (13.4-35.0) % Seg Neutrophils # Man 11.3 H (1.8-7.7) K/mm3 Lymphocytes # (Manual) 0.1 L (1.2-5.4) K/mm3 Potassium 5.7 H D (3.6-5.0) mmol/L BUN 73 H (9-20) mg/dL Creatinine 14.2 H (0.8-1.3) mg/dL Glucose (75-100) mg/dL Lactic Acid 2.30 H* (0.7-2.0) mmol/L Calcium 7.9 L (8.4-10.2) mg/dL Total Bilirubin 1.40 H (0.1-1.2) mg/dL AST 119 H (5-40) units/L ALT 130 H (7-56) units/L Alkaline Phosphatase 183 H (35-129) units/L Total Protein 6.1 L (6.3-8.2) g/dL Albumin 3.6 L (3.9-5) g/dL Diabetes panel 12/22/20 12/23/20 Range/Units 14:38 05:22 Sodium 142 139 (137-145) mmol/L Potassium 4.7 5.7 H D (3.6-5.0) mmol/L Chloride 100.2 99.5 (98-107) mmol/L Carbon Dioxide 23 23 (22-30) mmol/L BUN 58 H 73 H (9-20) mg/dL Creatinine 13.2 H 14.2 H (0.8-1.3) mg/dL Glucose 113 H 97 (75-100) mg/dL Calcium 8.6 7.9 L (8.4-10.2) mg/dL AST 28 119 H (5-40) units/L ALT 130 H (7-56) units/L Alkaline Phosphatase 155 H 183 H (35-129) units/L Total Protein 6.4 6.1 L (6.3-8.2) g/dL Albumin 4.3 3.6 L (3.9-5) g/dL Calcium panel 12/22/20 12/23/20 Range/Units 14:38 05:22 Calcium 8.6 7.9 L (8.4-10.2) mg/dL Albumin 4.3 3.6 L (3.9-5) g/dL Pituitary panel 12/22/20 12/23/20 Range/Units 14:38 05:22 Sodium 142 139 (137-145) mmol/L Potassium 4.7 5.7 H D (3.6-5.0) mmol/L Chloride 100.2 99.5 (98-107) mmol/L Carbon Dioxide 23 23 (22-30) mmol/L BUN 58 H 73 H (9-20) mg/dL Creatinine 13.2 H 14.2 H (0.8-1.3) mg/dL Glucose 113 H 97 (75-100) mg/dL Calcium 8.6 7.9 L (8.4-10.2) mg/dL Adrenal panel 12/22/20 12/23/20 Range/Units 14:38 05:22 Sodium 142 139 (137-145) mmol/L Potassium 4.7 5.7 H D (3.6-5.0) mmol/L Chloride 100.2 99.5 (98-107) mmol/L Carbon Dioxide 23 23 (22-30) mmol/L BUN 58 H 73 H (9-20) mg/dL Creatinine 13.2 H 14.2 H (0.8-1.3) mg/dL Glucose 113 H 97 (75-100) mg/dL Calcium 8.6 7.9 L (8.4-10.2) mg/dL Total Bilirubin 1.30 H 1.40 H (0.1-1.2) mg/dL AST 28 119 H (5-40) units/L ALT 130 H (7-56) units/L Alkaline Phosphatase 155 H 183 H (35-129) units/L Total Protein 6.4 6.1 L (6.3-8.2) g/dL Albumin 4.3 3.6 L (3.9-5) g/dL - Imaging CT scan - abdomen: report reviewed, image reviewed CT scan - pelvis: report reviewed, image reviewed Assessment and Plan 60 year old male with abdominal pain possible SBO, SBP. Afebrile, stable but with tachycardia and clinical peritonitis. will take to OR today for diagnostic laparoscopy. Contacted nephrology regarding pt not being able to use PD cath for a while after surgery. Continue abx, and NGT decompression.
--- NOTE | 2020-12-23 10:59 | Consultation ---
History of Present Illness - Reason for Consult Consult date: 12/23/20 end stage renal disease Requesting physician: LAXMI OLSON - History of Present Illness 60-year-old male, history of end-stage renal disease on peritoneal dialysis, presents to ED with abdominal pain since last night after eating [employer]. Patient reports periumbilical pain with associated fever, nausea, and vomiting. Patient denies any diarrhea. Denies any abdominal distention. Patient states had partial dialysis run yesterday at home but didn't finish because of the pain. Patient reports he received first dose of Moderna COVID-19 vaccine approximately 3 weeks ago. Past surgical history: Appendectomy Learning And Development Associate: Dr. Gilmer EUBANKS Complaint: abdominal pain -: Last night Location: periumbilical Radiation: none Migration to: no migration Severity: moderate Severity scale (0 -10): 10 Quality: cramping Consistency: constant Improves With: nothing Worsens With: nothing Associated Symptoms: nausea, vomiting, fever. denies: diarrhea ROS: Stated complaint: ABD PAIN Other details as noted in HPI Comment: All other systems reviewed and negative Constitutional: fever Gastrointestinal: abdominal pain, nausea, vomiting. denies: diarrhea - Past Medical History Previous Medical History?: Yes Hx Hypertension: Yes (FOR YRS, DR. GREEN- PCP) Hx Heart Attack/AMI: No Hx Congestive Heart Failure: Yes (IN 2013) Hx Diabetes: No Hx GERD: Yes Hx Renal Disease: Yes (CKD STAGE 4) Hx Sickle Cell Disease: No Hx Headaches / Migraines: Yes Hx Seizures: No Hx Asthma: No Hx COPD: No Hx Dementia: No Hx HIV: No Additional medical history: Crohns - Surgical History Past Surgical History?: Yes Hx Cholecystectomy: Yes (IN 1998) Hx Appendectomy: Yes (IN 2007) - Social History Smoking Status: Former Smoker Substance Use Type: None Past History Past Medical History: acute [place], ESRD, heart failure, hypertension, other (See HPI) Past Surgical History: appendectomy, cholecystectomy, Other (L inguinal hernia repair) Medications and Allergies Allergies Allergy/AdvReac Type Severity Reaction Status Date / Time No Known Allergies Allergy Verified 06/09/20 15:27 Home Medications Medication Instructions Recorded Confirmed Last Taken Type Albuterol Mdi (or & Nicu Only) 2 puff IH QID PRN #1 inhalation 04/01/17 11/01/20 10/31/20 09:00 Rx [ProAir HFA Inhaler] Calcium Acetate 667 mg PO DAILY 04/20/20 11/01/20 10/31/20 09:00 History Centrum Men's Tablet 1 tab PO DAILY 04/20/20 11/01/20 10/31/20 09:00 History Cinacalcet 30 mg PO DAILY 04/20/20 11/01/20 10/31/20 09:00 History Dialyvite with Zinc Tablet 1 tab PO DAILY 04/20/20 11/01/20 10/31/20 09:00 History Magnesium 250 mg PO BID 04/20/20 11/01/20 10/31/20 17:00 History Triamcinolone 0.1% 1 1000units TRANSDERMA DAILY 04/20/20 11/01/20 10/31/20 09:00 History Vit B12/Folic Acid/B6/Aa No.15 1,000 mg PO DAILY 04/20/20 11/01/20 10/31/20 09:00 History amLODIPine 10 mg PO DAILY 06/09/20 11/01/20 10/31/20 09:00 History AtorvaSTATin 40 mg PO HS 11/01/20 11/01/20 10/31/20 21:00 History Benadryl 25 mg PO HS 11/01/20 11/01/20 10/31/20 21:00 History Diclofenac 1 TRANSDERMA QID 11/01/20 10/31/20 19:00 History Fluticasone Propionate 1 spray INTRANASAL DAILY 11/01/20 11/01/20 10/31/20 09:00 History Vitamin D3 2,000 units 11/01/20 10/31/20 09:00 History carvediloL 12.5 mg PO DAILY 11/01/20 11/01/20 10/31/20 09:00 History hydrALAZINE 100 mg PO TID 11/01/20 11/01/20 10/31/20 19:00 History Active Meds: Active Medications Acetaminophen (Acetaminophen 325 Mg Tab) 650 mg PO Q4H PRN PRN Reason: Pain MILD(1-3)/Fever >100.5/HULL Last Admin: 12/22/20 22:28 Dose: 650 mg Documented by: Albuterol (Albuterol 2.5 Mg/3 Ml Nebu) 2.5 mg IH Q4HRT PRN PRN Reason: Shortness Of Breath Atorvastatin Calcium (Atorvastatin 40 Mg Tab) 40 mg PO QHS [facility] Last Admin: 12/22/20 22:44 Dose: Not Given Documented by: Carvedilol (Carvedilol 12.5 Mg Tab) 12.5 mg PO DAILY [facility] Diphenhydramine HCl (Diphenhydramine 25 Mg Cap) 25 mg PO QHS [facility] Last Admin: 12/22/20 22:44 Dose: Not Given Documented by: Metronidazole (Flagyl 500 Mg/100 Ml) 500 mg in 100 mls @ 100 mls/hr IV Q8H [facility]; Protocol Last Admin: 12/23/20 05:42 Dose: 100 mls/hr Documented by: Cefepime HCl (Cefepime/Ns 2 Gm/100 Ml) 2 gm in 100 mls @ 200 mls/hr IV Q24H [facility]; Protocol Magnesium Oxide (Magnesium Oxide 400 Mg Tab) 400 mg PO QDAY [facility] Morphine Sulfate (Morphine 2 Mg/1 Ml Inj) 2 mg IV Q4H PRN PRN Reason: Pain, Moderate (4-6) Multivit/Ca Carb/B Cmplx/FA/Prenat (Folic Acid/Vit B Comp W-C 1 Mg (Renal Caps)) 1 cap PO QDAY [facility] Nystatin (Nystatin Cream 15 Gm Tube) 1 applic TP DAILY [facility] Ondansetron HCl (Ondansetron 4 Mg/2 Ml Inj) 4 mg IV Q8H PRN PRN Reason: Nausea And Vomiting Sodium Chloride (Sodium Chloride 0.9% 10 Ml Flush Syringe) 10 ml IV BID [facility] Last Admin: 12/22/20 22:28 Dose: 10 ml Documented by: Sodium Chloride (Sodium Chloride 0.9% 10 Ml Flush Syringe) 10 ml IV PRN PRN PRN Reason: LINE FLUSH Triamcinolone Acetonide (Triamcinolone 0.1% Cream 15 Gm) 1 applic TP DAILY [facility] Exam - Vital Signs Vital signs: Vital Signs Temp Pulse Resp BP Pulse Ox 101.2 F H 102 H 18 121/85 95 12/22/20 14:15 12/22/20 14:15 12/22/20 14:15 12/22/20 14:15 12/22/20 14:15 - Physical Exam Narrative exam: - General Limitations: Physical Limitation General appearance: alert, in no apparent distress - Head Head exam: Present: atraumatic, normocephalic - Eye Eye exam: Present: normal appearance, EOMI - ENT ENT exam: Present: mucous membranes moist - Neck Neck exam: Present: normal inspection - Respiratory Respiratory exam: Present: normal lung sounds bilaterally. Absent: respiratory distress - Cardiovascular Cardiovascular Exam: Present: normal rhythm, tachycardia - GI/Abdominal GI/Abdominal exam: Present: soft, distended (slightly), tenderness (periumbilical ) - Extremities Exam Extremities exam: Present: normal inspection - Neurological Exam Neurological exam: Present: alert, oriented X3 - Psychiatric Psychiatric exam: Present: normal affect, normal mood - Skin Skin exam: Present: warm, dry, intact, normal color Results - Lab Results 12/23/20 05:22 12/23/20 05:22 Most recent lab results Calcium 7.9 mg/dL (8.4-10.2) L 12/23/20 05:22 Magnesium 1.90 mg/dL (1.7-2.3) 12/22/20 14:38 Assessment and Plan Assessment: - ESRD on peritoneal dialysis. He has been on peritoneal dialysis for the past 2 years. He denies any history of peritonitis. - Abdominal pain. CT scan without organ perforation. Need to rule out peritonitis. - small bowel obstruction - Hypertension - Hypokalemia - Anemia of ESRD - Hyperglycemia Plan: - Check peritoneal fluid count and cultures - Needs empiric treatment with vancomycin and cefipime - will need ex lap, stop PD. likely due to adhesions - intiate HD, IR for catheter placement - stop binders and sensipar - strict i/os, uf as tolerated - monitor electrolytes daily
[2020-12-23] MEDS ORDERED: SODIUM CHLORIDE 0.9% 100 ML IV PRN (11:03)
[2020-12-23] MEDS ORDERED: LIDOCAINE (1%) 10 MG/1 ML VIAL 20 ML MDV ONE (11:12)
[2020-12-23] MEDS ORDERED: BUPIVACAINE/PF (0.25%) 2.5 MG/ML 30 ML VIAL INFILTRATI ONE ×2 (11:13→14:31)
--- NOTE | 2020-12-23 11:27 | Anesthesia Consultation ---
<LINDA ZAYAS - Last Filed: 12/23/20 11:23> Anesthesia Consult and Med Hx Date of service: 12/23/20 - Airway Anesthetic Teeth Evaluation: Dentures (upper) ROM Head & Neck: Adequate Mental/Hyoid Distance: Adequate Mallampati Class: Class III Intubation Access Assessment: Possibly Difficult - Pre-Operative Health Status ASA Pre-Surgery Classification: ASA3, Emergency Proposed Anesthetic Plan: General - Pulmonary Hx Smoking: Yes (CIGARETTES 2 TO 3 CIGS PD X 43 YRS) Hx Asthma: No SOB: Yes (09/2015 echo in chart.) COPD: No Hx Pneumonia: No Hx Sleep Apnea: No - Cardiovascular System Hx Hypertension: Yes (FOR YRS, DR. 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) Hx Cardia Arrhythmia: No Hx Heart Murmur: No - Central Nervous System Hx Seizures: No CVA: No Hx Psychiatric Problems: No - Gastrointestinal Hx Ulcer: Yes (h/o GI bleed, Crohn's disease) Hx Gastroesophageal Reflux Disease: Yes (rare) - Endocrine Hx Renal Disease: Yes Hx End Stage Renal Disease: Yes (on peritoneal dialysis since 12/12) Hx Cirrhosis: No Hx Non-Insulin Dependent Diabetes: No Hx Thyroid Disease: No - Hematic Hx Anemia: Yes Hx Sickle Cell Disease: No - Other Systems Hx Cancer: No - Additional Comments Anesthesia Medical History Comments: Acute abdomen <CORI LOCO - Last Filed: 12/23/20 12:46> Anesthesia Consult and Med Hx - Airway Anesthetic Teeth Evaluation: Edentulous ROM Head & Neck: Adequate Mental/Hyoid Distance: Adequate Mallampati Class: Class III Intubation Access Assessment: Possibly Difficult - Pre-Operative Health Status ASA Pre-Surgery Classification: ASA3, Emergency Proposed Anesthetic Plan: General - Pulmonary Hx Smoking: Yes - Cardiovascular System Hx Hypertension: Yes - Endocrine Hx End Stage Renal Disease: Yes - Hematic Hx Anemia: Yes - Other Systems Hx Obesity: Yes - Additional Comments Anesthesia Medical History Comments: PMH ESRD on PD (last PD partial run 12/21/20), NICM, HTN, smoking presenting with acute abdomen, possible SBO scheduled for diagnostic lap. Most recent labs reviewed. Plan GETA/RSI w/ stnd ASA monitors. Discussed possible need for invasive monitoring/line placement and/or post op ICU admission with patient who verbalized understanding.
--- NOTE | 2020-12-23 11:28 | Anesthesia Day of Surgery ---
Anesthesia Day of Surgery - Day of Surgery Patient Examined: Yes Patient H&P Reviewed: Yes Patient is NPO: Yes
[2020-12-23] MEDS ORDERED: fentaNYL 100 MCG/2 ML INJ ONE ×3 (11:47→18:47)
[2020-12-23] MEDS ORDERED: propofoL 200 MG/20 ML VIAL IV ONE (11:47)
[2020-12-23] MEDS ORDERED: ONDANSETRON 4 MG/2 ML INJ ONE (11:48)
[2020-12-23] MEDS ORDERED: ROCURONIUM 50 MG/5 ML INJ IV ONE ×3 (11:48→14:13)
[2020-12-23] MEDS ORDERED: LIDOCAINE MPF (2%) 20 MG/1 ML VIAL 5 ML ONE (11:48)
[2020-12-23] MEDS: NYSTATIN CREAM 15 GM TUBE TP SCH (12:11)
[2020-12-23] MEDS: TRIAMCINOLONE 0.1% CREAM 15 GM TP SCH (12:11)
[2020-12-23 12:23] LABS: Hepatitis B Surface Antigen Non-Reactive (Negative); Hepatitis C Virus Antibody Non-Reactive (NonReactive)
--- NOTE | 2020-12-23 12:28 | Progress Note ---
Assessment and Plan Assessment and plan: #Sepsis secondary to secondary bacterial peritonitis -POA Started on IV antibiotics Peritoneal fluid cell count - neutrophilic leukocytosis ID consulted Nephrology consulted Plan for laparoscopy by surgery #Small bowel obstruction Has an NG tube in place Plan for laparoscopy by surgery Maintain n.p.o. for now #Congestive heart failure Continue medications #ESRD On peritoneal dialysis Nephrology on board #Congestive heart failure Stable #Nicotine abuse Smoking cessation counseling provided #DVT prophylaxis-hold heparin for now Systolic History Interval history: 60 YO Male with ESRD on PD, GERD, Crohn's Disease, Nicotine Dependence, HTN, Systolic CHF(EF 35%) presents to ED for evaluation. Patient reports "my stomach started hurting last night". Patient states that he had experienced abdominal pain which began overnight shortly after eating fast food. Patient states that his pain is 10/10, periumbilical, constant, associated with fever, nausea, as well as multiple episodes of vomiting. Patient reports inability to undergo peritoneal dialysis. EMS was notified and upon arrival the patient was found to be in distress and subsequently transported to [facility] for further care and evaluation of the aforementioned symptoms. Patient seen and evaluated in the emergency department. All lab and imaging studies reviewed. Patient underwent CT scan of the abdomen and pelvis which revealed evidence of a partial small bowel obstruction. Patient found to have symptoms consistent with spontaneous bacterial peritonitis. Patient also found to have end-stage renal disease on peritoneal dialysis. Patient admitted to medical floor and treated with empiric IV antibiotic therapy. General surgery team consulted in ED. Nephrology team consulted in ED. Patient denies fever, chills, chest pain, palpitations, productive cough, skin rash, recent ill contacts, ingestion of food/water from new or different sources, or known exposure to COVID-19. Prior admission on reviewed. All medication listed at time of admission has been reconc iled. Advanced care planning conducted in ED. Hospital course 12/23. Patient had temperature 101.2 F, tachycardia and elevated lactic acid on admission. Meet sepsis criteria. Started on IV antibiotics. ID has been consulted. Surgery consulted this a.m.-advised laparoscopy. He remains on NG t ube connected to suction. Hospitalist Physical - Physical exam Narrative exam: VITAL SIGNS: Reviewed. GENERAL: Awake HEAD: No signs of head trauma. EYES: Pupils are equal. Extraocular motions intact. MOUTH: Oropharynx is normal. NECK: No adenopathy, no JVD. CHEST: Diminished breath sounds at the bases CARDIAC: normal S1 and S2, without murmurs, gallops, or rubs. ABDOMEN: Tense abdomen, tenderness to palpation more in the right. BS + MUSCULOSKELETAL: Edema NEUROLOGIC EXAM: Alert and oriented x3. No focal neurologic deficits SKIN: No obvious lesions - Constitutional Vitals: Temp Pulse Resp BP Pulse Ox 98.7 F 115 H 18 164/94 90 12/23/20 08:19 12/23/20 08:19 12/23/20 08:19 12/23/20 08:19 12/23/20 09:50 General appearance: Present: mild distress HEART Score - HEART Score Troponin: Troponin T 0.021 ng/mL (0.00-0.029) 12/22/20 14:38 Results - Labs CBC & Chem 7: 12/23/20 05:22 12/23/20 05:22 Labs: Laboratory Last Values WBC 12.1 K/mm3 (4.5-11.0) H 12/23/20 05:22 RBC 3.70 M/mm3 (3.65-5.03) 12/23/20 05:22 Hgb 11.0 gm/dl (11.8-15.2) L 12/23/20 05:22 Hct 33.7 % (35.5-45.6) L 12/23/20 05:22 MCV 91 fl (84-94) 12/23/20 05:22 MCH 30 pg (28-32) 12/23/20 05:22 MCHC 33 % (32-34) 12/23/20 05:22 RDW 16.9 % (13.2-15.2) H 12/23/20 05:22 Plt Count 179 K/mm3 (140-440) 12/23/20 05:22 Add Manual Diff Complete 12/23/20 05:22 Total Counted 100 12/23/20 05:22 Seg Neutrophils % Transcription Typist 12/23/20 05:22 Seg Neuts % (Manual) 93.0 % (40.0-70.0) H 12/23/20 05:22 Band Neutrophils % 4.0 % 12/23/20 05:22 Lymphocytes % (Manual) 1.0 % (13.4-35.0) L 12/23/20 05:22 Monocytes % (Manual) 2.0 % (0.0-7.3) 12/23/20 05:22 Nucleated RBC % Not Reportable 12/23/20 05:22 Seg Neutrophils # Man 11.3 K/mm3 (1.8-7.7) H 12/23/20 05:22 Band Neutrophils # 0.5 K/mm3 12/23/20 05:22 Lymphocytes # (Manual) 0.1 K/mm3 (1.2-5.4) L 12/23/20 05:22 Abs React Lymphs (Man) 0.0 K/mm3 12/23/20 05:22 Monocytes # (Manual) 0.2 K/mm3 (0.0-0.8) 12/23/20 05:22 Eosinophils # (Manual) 0.0 K/mm3 (0.0-0.4) 12/23/20 05:22 Basophils # (Manual) 0.0 K/mm3 (0.0-0.1) 12/23/20 05:22 Metamyelocytes # 0.0 K/mm3 12/23/20 05:22 Myelocytes # 0.0 K/mm3 12/23/20 05:22 Promyelocytes # 0.0 K/mm3 12/23/20 05:22 Blast Cells # 0.0 K/mm3 12/23/20 05:22 WBC Morphology Not Reportable 12/23/20 05:22 Hypersegmented Neuts Not Reportable 12/23/20 05:22 Hyposegmented Neuts Not Reportable 12/23/20 05:22 Hypogranular Neuts Not Reportable 12/23/20 05:22 Smudge Cells Not Reportable 12/23/20 05:22 Toxic Granulation Not Reportable 12/23/20 05:22 Toxic Vacuolation Not Reportable 12/23/20 05:22 Dohle Bodies Not Reportable 12/23/20 05:22 Pelger-Huet Anomaly Not Reportable 12/23/20 05:22 Lamar Rods Not Reportable 12/23/20 05:22 Platelet Estimate Consistent w auto 12/23/20 05:22 Clumped Platelets Not Reportable 12/23/20 05:22 Plt Clumps, EDTA Not Reportable 12/23/20 05:22 Large Platelets Not Reportable 12/23/20 05:22 Giant Platelets Not Reportable 12/23/20 05:22 Platelet Satelliting Not Reportable 12/23/20 05:22 Plt Morphology Comment Not Reportable 12/23/20 05:22 RBC Morphology Not Reportable 12/23/20 05:22 Dimorphic RBCs Not Reportable 12/23/20 05:22 Polychromasia Not Reportable 12/23/20 05:22 Hypochromasia Not Reportable 12/23/20 05:22 Poikilocytosis Not Reportable 12/23/20 05:22 Anisocytosis 1+ 12/23/20 05:22 Microcytosis Not Reportable 12/23/20 05:22 Macrocytosis Not Reportable 12/23/20 05:22 Spherocytes Not Reportable 12/23/20 05:22 Pappenheimer Bodies Not Reportable 12/23/20 05:22 Sickle Cells Not Reportable 12/23/20 05:22 Target Cells Not Reportable 12/23/20 05:22 Tear Drop Cells Not Reportable 12/23/20 05:22 Ovalocytes Not Reportable 12/23/20 05:22 Helmet Cells Not Reportable 12/23/20 05:22 [place] Bodies Not Reportable 12/23/20 05:22 [place] Rings Not Reportable 12/23/20 05:22 Jenny Cells Not Reportable 12/23/20 05:22 Bite Cells Not Reportable 12/23/20 05:22 Crenated Cell Not Reportable 12/23/20 05:22 Elliptocytes Not Reportable 12/23/20 05:22 Acanthocytes (Spur) Not Reportable 12/23/20 05:22 Rouleaux Not Reportable 12/23/20 05:22 Hemoglobin C Crystals Not Reportable 12/23/20 05:22 Schistocytes Not Reportable 12/23/20 05:22 Malaria parasites Not Reportable 12/23/20 05:22 Lucas Bodies Not Reportable 12/23/20 05:22 Hem Pathologist Commnt No 12/23/20 05:22 PT 13.8 Sec. (12.2-14.9) 12/22/20 14:38 INR 1.07 (0.87-1.13) 12/22/20 14:38 APTT 25.1 Sec. (24.2-36.6) 12/22/20 14:38 Sodium 139 mmol/L (137-145) 12/23/20 05:22 Potassium 5.7 mmol/L (3.6-5.0) H D 12/23/20 05:22 Chloride 99.5 mmol/L (98-107) 12/23/20 05:22 Carbon Dioxide 23 mmol/L (22-30) 12/23/20 05:22 Anion Gap 22 mmol/L 12/23/20 05:22 BUN 73 mg/dL (9-20) H 12/23/20 05:22 Creatinine 14.2 mg/dL (0.8-1.3) H 12/23/20 05:22 Estimated GFR 4 ml/min 12/23/20 05:22 BUN/Creatinine Ratio 5 % 12/23/20 05:22 Glucose 97 mg/dL (75-100) 12/23/20 05:22 Lactic Acid 2.30 mmol/L (0.7-2.0) H* 12/23/20 06:35 Calcium 7.9 mg/dL (8.4-10.2) L 12/23/20 05:22 Magnesium 1.90 mg/dL (1.7-2.3) 12/22/20 14:38 Total Bilirubin 1.40 mg/dL (0.1-1.2) H 12/23/20 05:22 AST 119 units/L (5-40) H 12/23/20 05:22 ALT 130 units/L (7-56) H 12/23/20 05:22 Alkaline Phosphatase 183 units/L (35-129) H 12/23/20 05:22 Ammonia 30.0 umol/L (25-60) 12/22/20 14:38 Troponin T 0.021 ng/mL (0.00-0.029) 12/22/20 14:38 Total Protein 6.1 g/dL (6.3-8.2) L 12/23/20 05:22 Albumin 3.6 g/dL (3.9-5) L 12/23/20 05:22 Albumin/Globulin Ratio 1.4 % 12/23/20 05:22 Lipase 41 units/L (13-60) 12/22/20 14:38 Urine Color Yellow (Yellow) 12/22/20 18:53 Urine Turbidity Clear (Clear) 12/22/20 18:53 Urine pH 7.0 (5.0-7.0) 12/22/20 18:53 Ur Specific Cecilia 1.012 (1.003-1.030) 12/22/20 18:53 Urine Protein >500 mg/dL (Negative) 12/22/20 18:53 Urine Glucose (UA) Neg mg/dL (Negative) 12/22/20 18:53 Urine Ketones Neg mg/dL (Negative) 12/22/20 18:53 Urine Blood Neg (Negative) 12/22/20 18:53 Urine Nitrite Neg (Negative) 12/22/20 18:53 Urine Bilirubin Neg (Negative) 12/22/20 18:53 Urine Urobilinogen < 2.0 mg/dL (<2.0) 12/22/20 18:53 Ur Leukocyte Esterase Neg (Negative) 12/22/20 18:53 Urine WBC (Auto) < 1.0 /HPF (0.0-6.0) 12/22/20 18:53 Urine RBC (Auto) 1.0 /HPF (0.0-6.0) 12/22/20 18:53 Fluid Type Dialysate 12/22/20 Unknown Fluid Color Colorless 12/22/20 Unknown Fluid Appearance Cloudy 12/22/20 Unknown Fluid WBC 208 /mm3 12/22/20 Unknown Fluid RBC 45 /mm3 12/22/20 Unknown Fluid Seg Neutrophils 82.0 % 12/22/20 Unknown Fluid Lymphocytes 11.0 % 12/22/20 Unknown Fluid Reactive Lymphs 0 % 12/22/20 Unknown Fluid Monocytes 7.0 % 12/22/20 Unknown Fluid Eosinophils 0 % 12/22/20 Unknown Fluid Basophils 0 % 12/22/20 Unknown Hepatitis A IgM Ab Non-reactive (NonReactive) 12/23/20 11:38 Hep Bs Antigen Non-reactive (Negative) 12/23/20 11:38 Hep B Core IgM Ab Non-reactive (NonReactive) 12/23/20 11:38 Hepatitis C Antibody Non-reactive (NonReactive) 12/23/20 11:38 Microbiology: Microbiology 12/22/20 Unknown Peritioneal Dialysate Peritoneal Dialysate Culture - Preliminary 12/22/20 14:38 Peripheral/Venous Blood Culture - Preliminary Culture in Progress 12/22/20 14:28 Peripheral/Venous Blood Culture - Preliminary Culture in Progress Active Medications - Current Medications Current Medications: Generic Name Dose Route Start Last Admin Trade Name Freq PRN Reason Stop Dose Admin Acetaminophen 650 mg 12/22/20 19:42 12/22/20 22:28 Acetaminophen 325 Mg Tab PO 650 mg Q4H PRN Administration Pain MILD(1-3)/Fever >100.5/HULL Albuterol 2.5 mg 12/22/20 19:42 Albuterol 2.5 Mg/3 Ml Nebu IH Q4HRT PRN Shortness Of Breath Atorvastatin Calcium 40 mg 12/22/20 21:00 12/22/20 22:44 Atorvastatin 40 Mg Tab PO Not Given QHS [facility] Carvedilol 12.5 mg 12/23/20 10:00 Carvedilol 12.5 Mg Tab PO DAILY [facility] Diphenhydramine HCl 25 mg 12/22/20 21:00 12/22/20 22:44 Diphenhydramine 25 Mg Cap PO Not Given QHS [facility] Metronidazole 500 mg in 100 mls @ 100 mls/hr 12/22/20 20:00 12/23/20 05:42 Flagyl 500 Mg/100 Ml IV 100 mls/hr Q8H [facility] Administration Protocol Cefepime HCl 2 gm in 100 mls @ 200 mls/hr 12/23/20 16:00 Cefepime/Ns 2 Gm/100 Ml IV Q24H [facility] Protocol Sodium Chloride 100 mls @ 999 mls/hr 12/23/20 11:03 Nacl 0.9% IV [place] PRN Hypotension Magnesium Oxide 400 mg 12/23/20 08:00 Magnesium Oxide 400 Mg Tab PO QDAY [facility] Morphine Sulfate 2 mg 12/23/20 10:00 Morphine 2 Mg/1 Ml Inj IV Q4H PRN Pain, Moderate (4-6) Multivit/Ca Carb/B Cmplx/FA/Prenat 1 cap 12/23/20 08:00 Folic Acid/Vit B Comp W-C 1 Mg (Renal Caps) PO QDAY [facility] Nystatin 1 applic 12/23/20 11:00 Nystatin Cream 15 Gm Tube TP DAILY [facility] Ondansetron HCl 4 mg 12/22/20 19:42 Ondansetron 4 Mg/2 Ml Inj IV Q8H PRN Nausea And Vomiting Sodium Chloride 10 ml 12/22/20 22:00 12/22/20 22:28 Sodium Chloride 0.9% 10 Ml Flush Syringe IV 10 ml BID [facility]OMAS Administration Sodium Chloride 10 ml 12/22/20 19:42 Sodium Chloride 0.9% 10 Ml Flush Syringe IV PRN PRN LINE FLUSH Triamcinolone Acetonide 1 applic 12/23/20 11:00 Triamcinolone 0.1% Cream 15 Gm TP DAILY [facility]
[2020-12-23] MEDS ORDERED: SODIUM CHLORIDE 0.9% 1000 ML 1,000 ML ONE (12:32)
[2020-12-23] MEDS ORDERED: PHENYLEPHRINE/NS 1,000 MCG/10 ML SYRINGE (OR USE) IV ONE ×2 (12:32→14:34)
[2020-12-23] MEDS ORDERED: ePHEDrine SULFATE 50 MG/1 ML INJ ONE (12:39)
--- NOTE | 2020-12-23 12:51 | Event Note ---
Date: 12/23/20 Just contacted about patient on Peritoneal Dialysis who requires exploratory laparoscopy and possible conversion to laparotomy for possible small bowel obstruction. Consulted for placement of tunneled dialysis catheter as patient will be unable to use his PD catheter until his abdominal wounds heal. Patient is currently on the operating room table being prepped and draped. Unable to place a permacath at this time. If the patient requires urgent dialysis in the immediate postoperative period, will likely require a vascath placed at the [facility] in the Intensive Care Unit.
[2020-12-23] MEDS ORDERED: ONDANSETRON 4 MG/2 ML INJ IV PRN (13:00)
[2020-12-23] MEDS ORDERED: fentaNYL 100 MCG/2 ML INJ IV PRN (13:00)
--- NOTE | 2020-12-23 13:38 | Consultation ---
History of Present Illness - Reason for Consult Consult date: 12/23/20 Peritonitis Requesting physician: JAMIN GODOY - History of Present Illness The patient is a 60-year-old male with ESRD on PD, Crohn's disease, CHF, gastroesophageal reflux disease was admitted to the hospital with complaints of abdominal pain. CT scan of the abdomen and pelvis upon evaluation in the ER revealed a partial small bowel obstruction. Dialysis fluid appeared cloudy with increased WBC and neutrophils, question of PD associated peritonitis was also raised. Infectious diseases was consulted for antibiotic recommendations. Complains of abdominal pain. Review of Systems: General: Fever on admission HEENT: no new visual disturbance Respiratory: No cough, sputum, hemoptysis or shortness of breath Cardiovascular: No chest pain, syncope Gastrointestinal: abdo pain Genitourinary: No dysuria or hematuria Musculoskeletal: No new or worsening neck pain or back pain Neurologic: No headaches, seizures Hematologic: No easy bruising or bleeding Endocrine: No night sweats or acute weight loss Skin: negative for rash, jaundice Psychiatric: No suicidal or homicidal ideation Past History Past Medical History: acute [place], ESRD, heart failure, hypertension, other (See HPI) Past Surgical History: appendectomy, cholecystectomy, Other (L inguinal hernia repair) Medications and Allergies Allergies Allergy/AdvReac Type Severity Reaction Status Date / Time No Known Allergies Allergy Verified 06/09/20 15:27 Home Medications Medication Instructions Recorded Confirmed Last Taken Type Albuterol Mdi (or & Nicu Only) 2 puff IH QID PRN #1 inhalation 04/01/17 11/01/20 10/31/20 09:00 Rx [ProAir HFA Inhaler] Calcium Acetate 667 mg PO DAILY 04/20/20 11/01/20 10/31/20 09:00 History Centrum Men's Tablet 1 tab PO DAILY 04/20/20 11/01/20 10/31/20 09:00 History Cinacalcet 30 mg PO DAILY 04/20/20 11/01/20 10/31/20 09:00 History Dialyvite with Zinc Tablet 1 tab PO DAILY 04/20/20 11/01/20 10/31/20 09:00 History Magnesium 250 mg PO BID 04/20/20 11/01/20 10/31/20 17:00 History Triamcinolone 0.1% 1 1000units TRANSDERMA DAILY 04/20/20 11/01/20 10/31/20 09:00 History Vit B12/Folic Acid/B6/Aa No.15 1,000 mg PO DAILY 04/20/20 11/01/20 10/31/20 09:00 History amLODIPine 10 mg PO DAILY 06/09/20 11/01/20 10/31/20 09:00 History AtorvaSTATin 40 mg PO HS 11/01/20 11/01/20 10/31/20 21:00 History Benadryl 25 mg PO HS 11/01/20 11/01/20 10/31/20 21:00 History Diclofenac 1 TRANSDERMA QID 11/01/20 10/31/20 19:00 History Fluticasone Propionate 1 spray INTRANASAL DAILY 11/01/20 11/01/20 10/31/20 09:00 History Vitamin D3 2,000 units 11/01/20 10/31/20 09:00 History carvediloL 12.5 mg PO DAILY 11/01/20 11/01/20 10/31/20 09:00 History hydrALAZINE 100 mg PO TID 11/01/20 11/01/20 10/31/20 19:00 History Active Meds: Active Medications Acetaminophen (Acetaminophen 325 Mg Tab) 650 mg PO Q4H PRN PRN Reason: Pain MILD(1-3)/Fever >100.5/HULL Last Admin: 12/22/20 22:28 Dose: 650 mg Documented by: Albuterol (Albuterol 2.5 Mg/3 Ml Nebu) 2.5 mg IH Q4HRT PRN PRN Reason: Shortness Of Breath Atorvastatin Calcium (Atorvastatin 40 Mg Tab) 40 mg PO QHS [facility] Last Admin: 12/22/20 22:44 Dose: Not Given Documented by: Carvedilol (Carvedilol 12.5 Mg Tab) 12.5 mg PO DAILY [facility] Last Admin: 12/23/20 10:00 Dose: Not Given Documented by: Diphenhydramine HCl (Diphenhydramine 25 Mg Cap) 25 mg PO QHS [facility] Last Admin: 12/22/20 22:44 Dose: Not Given Documented by: Fentanyl (Fentanyl 100 Mcg/2 Ml Inj) 50 mcg IV Q5MIN PRN PRN Reason: Pain , Severe (7-10) Stop: 12/23/20 17:00 Metronidazole (Flagyl 500 Mg/100 Ml) 500 mg in 100 mls @ 100 mls/hr IV Q8H THOMAS; Protocol Last Admin: 12/23/20 12:00 Dose: Not Given Documented by: Cefepime HCl (Cefepime/Ns 2 Gm/100 Ml) 2 gm in 100 mls @ 200 mls/hr IV Q24H THOMAS; Protocol Sodium Chloride (Nacl 0.9%) 100 mls @ 999 mls/hr IV RYLAND PRN PRN Reason: Hypotension Magnesium Oxide (Magnesium Oxide 400 Mg Tab) 400 mg PO QDAY [facility] Last Admin: 12/23/20 10:00 Dose: Not Given Documented by: Morphine Sulfate (Morphine 2 Mg/1 Ml Inj) 2 mg IV Q4H PRN PRN Reason: Pain, Moderate (4-6) Multivit/Ca Carb/B Cmplx/FA/Prenat (Folic Acid/Vit B Comp W-C 1 Mg (Renal Caps)) 1 cap PO QDAY [facility] Last Admin: 12/23/20 10:00 Dose: Not Given Documented by: Nystatin (Nystatin Cream 15 Gm Tube) 1 applic TP DAILY [facility]OM[facility] Ondansetron HCl (Ondansetron 4 Mg/2 Ml Inj) 4 mg IV Q8H PRN PRN Reason: Nausea And Vomiting Ondansetron HCl (Ondansetron 4 Mg/2 Ml Inj) 4 mg IV ONCE PRN PRN Reason: Nausea And Vomiting Stop: 12/23/20 18:00 Sodium Chloride (Sodium Chloride 0.9% 10 Ml Flush Syringe) 10 ml IV BID [facility] Last Admin: 12/23/20 10:00 Dose: Not Given Documented by: Sodium Chloride (Sodium Chloride 0.9% 10 Ml Flush Syringe) 10 ml IV PRN PRN PRN Reason: LINE FLUSH Triamcinolone Acetonide (Triamcinolone 0.1% Cream 15 Gm) 1 applic TP DAILY [facility] Physical Examination - Physical Exam Narrative exam: Physical Exam: Constitutional: Alert, cooperative. No acute distress Head, Ears, Nose: Normocephalic, atraumatic. External ears, nose normal Eyes: Conjunctivae/corneas clear. No icterus. No ptosis. Neck: Supple, no meningeal signs Cardiovascular: S1, S2 normal. Respiratory: Good air entry, clear to auscultation bilaterally GI: Distended, tender, PD catheter present, exit site does not appear infected Musculoskeletal: No pedal edema, no cyanosis. Skin: No rash or abscess Hem/Lymphatic: No palpable cervical or supraclavicular nodes. No lymphangitis Psych: Mood ok. Affect normal Neurological: Awake, alert, oriented. No gross abnormality - Constitutional Vitals: Vital Signs Temp Pulse Resp BP Pulse Ox 98.7 F 115 H 18 164/94 90 12/23/20 08:19 12/23/20 08:19 12/23/20 08:19 12/23/20 08:19 12/23/20 09:50 Temperature -Last 24 Hours Temperature 98.7 F Temperature 98.0 F Temperature 98 F Temperature 101.2 F Results - Labs CBC & Chem 7: 12/23/20 05:22 12/23/20 05:22 Labs: Abnormal lab results 12/22/20 12/22/20 12/22/20 Range/Units 14:38 14:38 14:38 WBC (4.5-11.0) K/mm3 Hgb 11.2 L (11.8-15.2) gm/dl Hct 35.0 L (35.5-45.6) % RDW 16.7 H (13.2-15.2) % Seg Neuts % (Manual) 94.0 H (40.0-70.0) % Lymphocytes % (Manual) 5.0 L (13.4-35.0) % Seg Neutrophils # Man (1.8-7.7) K/mm3 Lymphocytes # (Manual) 0.3 L (1.2-5.4) K/mm3 Potassium (3.6-5.0) mmol/L BUN 58 H (9-20) mg/dL Creatinine 13.2 H (0.8-1.3) mg/dL Glucose 113 H (75-100) mg/dL Lactic Acid 3.60 H* (0.7-2.0) mmol/L Calcium (8.4-10.2) mg/dL Total Bilirubin 1.30 H (0.1-1.2) mg/dL AST (5-40) units/L ALT (7-56) units/L Alkaline Phosphatase 155 H (35-129) units/L Total Protein (6.3-8.2) g/dL Albumin (3.9-5) g/dL 12/22/20 12/22/20 12/23/20 Range/Units 16:26 17:47 05:22 WBC (4.5-11.0) K/mm3 Hgb (11.8-15.2) gm/dl Hct (35.5-45.6) % RDW (13.2-15.2) % Seg Neuts % (Manual) (40.0-70.0) % Lymphocytes % (Manual) (13.4-35.0) % Seg Neutrophils # Man (1.8-7.7) K/mm3 Lymphocytes # (Manual) (1.2-5.4) K/mm3 Potassium (3.6-5.0) mmol/L BUN (9-20) mg/dL Creatinine (0.8-1.3) mg/dL Glucose (75-100) mg/dL Lactic Acid 2.80 H* 3.10 H* 2.30 H* (0.7-2.0) mmol/L Calcium (8.4-10.2) mg/dL Total Bilirubin (0.1-1.2) mg/dL AST (5-40) units/L ALT (7-56) units/L Alkaline Phosphatase (35-129) units/L Total Protein (6.3-8.2) g/dL Albumin (3.9-5) g/dL 12/23/20 12/23/20 12/23/20 Range/Units 05:22 05:22 06:35 WBC 12.1 H (4.5-11.0) K/mm3 Hgb 11.0 L (11.8-15.2) gm/dl Hct 33.7 L (35.5-45.6) % RDW 16.9 H (13.2-15.2) % Seg Neuts % (Manual) 93.0 H (40.0-70.0) % Lymphocytes % (Manual) 1.0 L (13.4-35.0) % Seg Neutrophils # Man 11.3 H (1.8-7.7) K/mm3 Lymphocytes # (Manual) 0.1 L (1.2-5.4) K/mm3 Potassium 5.7 H D (3.6-5.0) mmol/L BUN 73 H (9-20) mg/dL Creatinine 14.2 H (0.8-1.3) mg/dL Glucose (75-100) mg/dL Lactic Acid 2.30 H* (0.7-2.0) mmol/L Calcium 7.9 L (8.4-10.2) mg/dL Total Bilirubin 1.40 H (0.1-1.2) mg/dL AST 119 H (5-40) units/L ALT 130 H (7-56) units/L Alkaline Phosphatase 183 H (35-129) units/L Total Protein 6.1 L (6.3-8.2) g/dL Albumin 3.6 L (3.9-5) g/dL - Imaging and Cardiology CT scan - abdomen: report reviewed, image reviewed (ascites and dilated bowel) Assessment and Plan Cultures: 12/22/2020 blood culture: In process 12/22/2020 PD fluid culture: In process. PD fluid showed 208 WBC, 82% PMNs A/P: 60-year-old male with ESRD on PD, Crohn's disease, CHF, gastroesophageal reflux disease was admitted to the hospital with complaints of abdominal pain and fever: #Sepsis secondary to small bowel obstruction with concern for PD associated peritonitis: Nephrology and general surgery following. Planning diagnostic laparoscopy. #ESRD on PD: Renally dose antibiotics. Pending conversion to HD. #Elevated LFTs: Monitor. Recs: -Renally dosed IV cefepime and vancomycin for now -Follow-up OR findings -Flagyl can be stopped if no bowel perforation / intra-abdominal abscess noted in OR -Follow-up PD fluid culture Yesika Denny MD, FACP [facility] ([facility] O: [phone] F: [phone]
[2020-12-23] MEDS ORDERED: SODIUM CHLORIDE 0.9% IRR 1,500 ML BOTTLE IR ONE ×2 (14:00→14:13)
[2020-12-23] MEDS ORDERED: SODIUM CHLORIDE 0.9% IRRIG SOLN 2000 ML IR ONE (14:13)
[2020-12-23 14:16] LABS: Hematocrit 30.4 % (35.5-45.6)
[2020-12-23] MEDS ORDERED: LIDOCAINE (1%) 10 MG/1 ML VIAL 20 ML MDV INFILTRATI ONE (14:45)
[2020-12-23] MEDS ORDERED: DESMOPRESSIN ACETATE 4 MCG in SODIUM CHLORIDE 0.9% 50 ML IV ONE (15:00)
[2020-12-23] MEDS ORDERED: SODIUM CHLORIDE 0.9% 1000 ML 3,000 ML ONE (15:05)
[2020-12-23] MEDS ORDERED: SODIUM CHLORIDE 0.9% 500 ML 500 ML IV SCH (16:30)
[2020-12-23] MEDS ORDERED: INSULIN REGULAR, HUMAN 100 UNITS/1 ML ONE (16:45)
[2020-12-23] MEDS ORDERED: DEXTROSE 50% IN WATER (25GM) 50 ML SYRINGE IV ONE ×2 (16:51→22:46)
[2020-12-23] MEDS ORDERED: PHENYLEPHRINE 10 MG/1 ML INJ SDV ONE ×2 (17:29)
--- NOTE | 2020-12-23 19:09 | Operative Report ---
Operative Report Operative Report: DATE: 12/23/2020 Surgeon: Adri Sanchez MD [employer] Surgeon: Radha Pollock DO Procedure: 1. diagnostic laparoscopy, 2. exploratory laparotomy, 3. extensive lysis of adhesions, 4. small bowel resection and primary anastomosis x2 Anesthesia: GETA Indication: Patient is a 60-year-old male who presented to the emergency room with a 1 day history of acute abdominal pain and history of peritoneal dialysis. CT scan showed small bowel obstruction. Upon exam patient showed peritonitis. Patient was urgently scheduled for surgery after signed informed consent. Details of procedure: Patient was brought into the OR suite laid in supine position. Bilateral lower extremity SCDs were placed. General anesthesia was induced via successful endotracheal tube intubation. A Jeffery catheter was inserted under sterile conditions. Patient abdomen was prepped and draped in sterile fashion, with his arms tucked at his side. After timeout, a stab incision was placed in the left subcostal region and a Veress needle was inserted to insufflate the abdomen to a pressure of 15 mmHg. After which using Optiview technique, a 5 mm trocar was placed in the left upper quadrant. There was no gross injury to any intra-abdominal structures. 2 working trochars were placed under direct visualization. 5 mm trochars, one in the left lower quadrant and periumbilical area. There was noted to be some omental adhesions to the intra-abdominal. These were easily taken down with the LigaSure device. Examination of the bowel showed a tight distended loop of bowel with signs of transmural bowel necrosis. Due to inability to manipulate the bowel due to extensive interloop adhesions, and inability to handle the distended loop of bowel due to distention it was decided to transition to an open procedure. A 10 blade scalpel was used vertically through the previous incision starting at the suprapubic area to above the umbilicus. Electrocautery was used to dissect down to the fascia into the peritoneal cavity. There was noted to be extensive interloop adhesions almost consistent with a frozen abdomen, that took over 4 hours to lyse to be able to correctly orient his anatomy. There was a distended, dilated loop of small bowel close to a previous distal small bowel anastomosis that had to be decompressed to manipulate. Proximal to this dilated segment of bowel with an area of necrosis, there was noted to be a palpable hard mass that correlated with the calcification seen on CAT scans dating back to 2 017. Of note the majority of his distal small bowel was edematous, with thickened mesentery. While trying to lyse some adhesions, there was a large enterotomy made in a segment of small bowel away from the area to be resected. Once freed from the area of concern a 5 cm segment of small bowel with the enterotomy was resected with SAI stapler followed by primary anastomosis. The mesentery was closed with a running silk. Distal ileum was then focused on, and a resection including the dilated necrotic section, and the edematous distal ileum with a foreign body were resected. The distal cut and was approximately 6 to 7 cm from the cecum. A primary anastomosis was performed using SAI staplers. The common enterotomy was closed via Vicryl mucosal stitches, followed by silk Lembert serosal sutures. The common staple line was noted to be approximately 3 cm in length, this was due to the terminal ileum being close to the ileocecal valve. Patient was noted to have extensive diffuse oozing with the slightest manipulation. He was transfused 2 units of blood Intra-Op as a precaution, however he remained hemodynamically stable throughout the entire case. His abdomen was washed out with warm saline and irrigated. His fascia was closed with #1 PDS, followed by dwayne. A sterile dressing was then placed over his incisions. Patient was not extubated, due to the fact that he is a dialysis patient who had not been dialyzed on schedule. And the bench tool maker and marine drafter were concerned that he may be fluid overloaded overnight. Patient was taken to ICU in stable condition. All counts were correct. Specimen: 2 segments of small bowel EBL: ~500ml Complications: None immediate
[2020-12-23] MEDS ORDERED: HYDROmorphone 1 MG/1 ML INJ ONE (19:17)
--- NOTE | 2020-12-23 19:17 | Post Anesthesia Evaluation ---
- Post Anesthesia Evaluation Patient Participated: No (opens eyes to name) Airway Patent: Yes (intubated) Stable Respiratory Function: Yes (placed on vent by RT) Nausea/Vomiting: No (unable to assess) Temp > 96.8F: Yes Pain Manageable: Yes (unable to assess) Adequeate Hydration: Yes Anesthesia Complications: No Block Receding Appropriately: Not Applicable Patient on Ventilator: Yes (500x12, 50%, Peep 6) Other Comments: Transported to ICU with anesthesia, OR and PACU team. VS monitored and stable throughout. Handoff to RT and LEAF CONDITIONER HELPER at bedside.
--- NOTE | 2020-12-23 19:47 | XRay Report ---
CHEST 1 VIEW 12/23/2020 6:42 PM INDICATION / CLINICAL INFORMATION: ETT placement. COMPARISON: None available. FINDINGS: ET tube and NG tube are satisfactory in position. Mild increased interstitial prominence in the perih ilar regions bilaterally persist. Signer Name: Chip Garcia MD Signed: 12/23/2020 7:43 PM Workstation Name: [id number]
[2020-12-23 20:52] LABS: ABG Base Excess -5.9 mmol/L (-2.0-3.0); ABG HCO3 21.4 mmol/L (20.0-26.0); ABG Methemoglobin 0.7 % (0.0-1.5); ABG Oxygen Saturation 81.1 % (95.0-99.0); ABG PCO2 49.7 mm Hg; ABG PH 7.252 pH Units (7.350-7.450); ABG PO2 50.1 mm Hg (80.0-90.0)
[2020-12-23] MEDS: CEFEPIME/NS 2 GM/100 ML 2 GM/100 ML BAG IV SCH (21:00)
[2020-12-23 21:10] LABS: Calcium 6.9 mg/dL (8.4-10.2)
[2020-12-23] MEDS ORDERED: INSULIN REGULAR, HUMAN 100 UNITS/1 ML SUB-Q ONE (22:41)
[2020-12-23] MEDS ORDERED: SODIUM POLYSTYRENE 15 GM/60 ML ORAL LIQD PO ONE (22:46)
[2020-12-24] MEDS: MORPHINE 2 MG/1 ML INJ IV PRN (02:19)
[2020-12-24 02:36] LABS: Calcium 7.5 mg/dL (8.4-10.2)
[2020-12-24] MEDS ORDERED: SODIUM CHLORIDE 0.9% 1000 ML 1,000 ML ONE ×2 (02:41→06:06)
[2020-12-24] MEDS ORDERED: SODIUM POLYSTYRENE 15 GM/60 ML ORAL LIQD PO ONE (04:45)
[2020-12-24] MEDS: metroNIDAZOLE/NS 500 MG/100 ML 500 MG/100 ML BAG IV SCH ×3 (05:21→21:38)
[2020-12-24] MEDS ORDERED: SODIUM CHLORIDE 0.9% 1000 ML 1,000 ML IV ONE ×2 (06:06→07:30)
--- NOTE | 2020-12-24 07:21 | Progress Note ---
Assessment and Plan Assessment: - ESRD on peritoneal dialysis. He has been on peritoneal dialysis for the past 2 years. He denies any history of peritonitis. - Abdominal pain. CT scan without organ perforation. Need to rule out peritonitis. - small bowel obstruction - Hypertension - Hyperkalemia - Anemia of ESRD - Hyperglycemia Plan: - continue IV empiric abx - s/p ex lap, stop PD - intiate HD, after catheter placement - k noted today, no access was placed yesterday, hd has been ordered - stop binders and sensipar - strict i/os, uf as tolerated - monitor electrolytes daily Subjective Date of service: 12/24/20 Principal diagnosis: hyperkalemia, sbo, esrd Interval history: resting in bed event noted Objective - Exam Narrative Exam: - General Limitations: Physical Limitation General appearance: alert, in no apparent distress - Head Head exam: Present: atraumatic, normocephalic - Eye Eye exam: Present: normal appearance, EOMI - ENT ENT exam: Present: mucous membranes moist - Neck Neck exam: Present: normal inspection - Respiratory Respiratory exam: Present: normal lung sounds bilaterally. Absent: respiratory distress - Cardiovascular Cardiovascular Exam: Present: normal rhythm, tachycardia - GI/Abdominal GI/Abdominal exam: Present: soft, distended (slightly), tenderness (periumbilical ) - Extremities Exam Extremities exam: Present: normal inspection - Neurological Exam Neurological exam: Present: alert, oriented X3 - Psychiatric Psychiatric exam: Present: normal affect, normal mood - Skin Skin exam: Present: warm, dry, intact, normal color - Vital Signs Vital signs: Vital Signs - 12hr 12/23/20 12/23/20 12/23/20 19:24 19:25 20:00 Temperature 98.1 F Pulse Rate 104 H 106 H Respiratory 14 Rate Blood Pressure 149/84 O2 Sat by Pulse 100 Oximetry 12/23/20 12/23/20 12/23/20 20:34 20:52 21:20 Temperature Pulse Rate 100 H Respiratory 26 H Rate Blood Pressure 118/70 O2 Sat by Pulse 100 100 99 Oximetry 12/23/20 12/23/20 12/23/20 21:30 21:41 21:51 Temperature Pulse Rate 100 H 100 H 97 H Respiratory 16 18 20 Rate Blood Pressure 113/70 113/70 111/69 O2 Sat by Pulse 100 100 100 Oximetry 12/23/20 12/23/20 12/23/20 22:00 22:11 22:21 Temperature Pulse Rate 99 H 102 H 99 H Respiratory 23 21 14 Rate Blood Pressure 117/72 117/72 116/70 O2 Sat by Pulse 100 100 100 Oximetry 12/23/20 12/23/20 12/23/20 22:30 22:41 22:51 Temperature Pulse Rate 100 H 102 H 104 H Respiratory 27 H 28 H 35 H Rate Blood Pressure 123/76 123/76 107/67 O2 Sat by Pulse 100 100 100 Oximetry 12/23/20 12/23/20 12/23/20 23:00 23:11 23:21 Temperature Pulse Rate 106 H 106 H 108 H Respiratory 26 H 25 H 25 H Rate Blood Pressure 106/68 106/68 127/77 O2 Sat by Pulse 100 100 100 Oximetry 12/23/20 12/23/20 12/23/20 23:30 23:41 23:42 Temperature Pulse Rate 110 H 113 H 117 H Respiratory 44 H 38 H Rate Blood Pressure 102/67 102/67 96/61 O2 Sat by Pulse 100 100 100 Oximetry 12/23/20 12/24/20 12/24/20 23:51 00:00 00:11 Temperature 98.8 F Pulse Rate 114 H 116 H 122 H Respiratory 26 H 29 H 39 H Rate Blood Pressure 96/61 93/59 93/59 O2 Sat by Pulse 100 100 100 Oximetry 12/24/20 12/24/20 12/24/20 00:21 00:30 00:34 Temperature Pulse Rate 124 H 116 H Respiratory 29 H 27 H 24 Rate Blood Pressure 90/59 77/47 O2 Sat by Pulse 100 100 99 Oximetry 12/24/20 12/24/20 12/24/20 00:41 00:51 01:00 Temperature Pulse Rate 114 H 112 H 113 H Respiratory 29 H 32 H 21 Rate Blood Pressure 77/47 80/53 101/64 O2 Sat by Pulse 100 100 100 Oximetry 12/24/20 12/24/20 12/24/20 01:11 01:21 01:30 Temperature Pulse Rate 115 H 114 H 115 H Respiratory 18 26 H 19 Rate Blood Pressure 101/64 93/64 96/61 O2 Sat by Pulse 100 100 100 Oximetry 12/24/20 12/24/20 12/24/20 01:41 01:51 02:00 Temperature Pulse Rate 117 H 118 H 119 H Respiratory 21 42 H 25 H Rate Blood Pressure 96/61 91/57 97/61 O2 Sat by Pulse 100 100 100 Oximetry 12/24/20 12/24/20 12/24/20 02:11 02:21 02:30 Temperature Pulse Rate 123 H 122 H 121 H Respiratory 35 H 31 H 32 H Rate Blood Pressure 97/61 90/55 75/50 O2 Sat by Pulse 100 100 100 Oximetry 12/24/20 12/24/20 12/24/20 02:41 02:51 03:00 Temperature Pulse Rate 120 H 119 H 113 H Respiratory 32 H 39 H 38 H Rate Blood Pressure 75/50 79/48 103/68 O2 Sat by Pulse 100 99 98 Oximetry 12/24/20 12/24/20 12/24/20 03:11 03:21 03:30 Temperature Pulse Rate 113 H 113 H 115 H Respiratory 39 H 29 H 41 H Rate Blood Pressure 103/68 102/66 106/67 O2 Sat by Pulse 100 100 100 Oximetry 12/24/20 12/24/20 12/24/20 03:41 03:42 03:51 Temperature Pulse Rate 115 H 112 H 116 H Respiratory 30 H 46 H Rate Blood Pressure 106/67 105/69 105/69 O2 Sat by Pulse 100 100 99 Oximetry 12/24/20 12/24/20 12/24/20 04:00 04:11 04:21 Temperature 98.7 F Pulse Rate 117 H 117 H 115 H Respiratory 36 H 39 H 40 H Rate Blood Pressure 98/62 102/66 97/61 O2 Sat by Pulse 99 99 98 Oximetry 12/24/20 12/24/20 12/24/20 04:30 04:41 04:51 Temperature Pulse Rate 113 H 116 H 117 H Respiratory 32 H 18 27 H Rate Blood Pressure 101/62 101/62 101/66 O2 Sat by Pulse 98 99 99 Oximetry 12/24/20 12/24/20 12/24/20 05:00 05:11 05:21 Temperature Pulse Rate 115 H 115 H 117 H Respiratory 27 H 26 H 19 Rate Blood Pressure 92/62 92/62 92/58 O2 Sat by Pulse 98 98 99 Oximetry 12/24/20 12/24/20 12/24/20 05:31 05:41 05:51 Temperature Pulse Rate 115 H 113 H 119 H Respiratory 21 17 23 Rate Blood Pressure 76/56 101/60 106/64 O2 Sat by Pulse 98 98 100 Oximetry 12/24/20 12/24/20 12/24/20 06:00 06:11 06:21 Temperature Pulse Rate 112 H 114 H 110 H Respiratory 26 H 25 H 34 H Rate Blood Pressure 85/50 91/52 87/53 O2 Sat by Pulse 100 100 97 Oximetry 12/24/20 12/24/20 12/24/20 06:30 06:41 06:51 Temperature Pulse Rate 108 H 107 H 107 H Respiratory 26 H 20 22 Rate Blood Pressure 99/62 94/60 111/64 O2 Sat by Pulse 99 99 100 Oximetry - Lab 12/23/20 13:53 12/24/20 01:20 Most recent lab results ABG pH 7.436 (7.320-7.450) 12/24/20 04:00 ABG pCO2 49.7 mm Hg 12/23/20 20:35 ABG pO2 50.1 mm Hg (80.0-90.0) L 12/23/20 20:35 ABG HCO3 21.4 mmol/L (20.0-26.0) 12/23/20 20:35 ABG O2 Saturation 98 (0-100) 12/24/20 04:00 Calcium 7.5 mg/dL (8.4-10.2) L 12/24/20 01:20 Magnesium 1.90 mg/dL (1.7-2.3) 12/22/20 14:38 Medications & Allergies - Medications Allergies/Adverse Reactions: Allergies No Known Allergies Allergy (Verified 06/09/20 15:27) Home Medications: Home Medications Medication Instructions Recorded Confirmed Last Taken Type Albuterol Mdi (or & Nicu Only) 2 puff IH QID PRN #1 inhalation 04/01/17 11/01/20 10/31/20 09:00 Rx [ProAir HFA Inhaler] Calcium Acetate 667 mg PO DAILY 04/20/20 11/01/20 10/31/20 09:00 History Centrum Men's Tablet 1 tab PO DAILY 04/20/20 11/01/20 10/31/20 09:00 History Cinacalcet 30 mg PO DAILY 04/20/20 11/01/20 10/31/20 09:00 History Dialyvite with Zinc Tablet 1 tab PO DAILY 04/20/20 11/01/2021 09:00 Histo ry Magnesium 250 mg PO BID 04/20/20 11/01/20 10/31/20 17:00 History Triamcinolone 0.1% 1 1000units TRANSDERMA DAILY 04/20/20 11/01/20 10/31/20 09:00 History Vit B12/Folic Acid/B6/Aa No.15 1,000 mg PO DAILY 04/20/20 11/01/20 10/31/20 09:00 History amLODIPine 10 mg PO DAILY 06/09/20 11/01/20 10/31/20 09:00 History AtorvaSTATin 40 mg PO HS 11/01/20 11/01/20 10/31/20 21:00 History Benadryl 25 mg PO HS 11/01/20 11/01/20 10/31/20 21:00 History Diclofenac 1 TRANSDERMA QID 11/01/20 10/31/20 19:00 History Fluticasone Propionate 1 spray INTRANASAL DAILY 11/01/20 11/01/20 10/31/20 09:00 History Vitamin D3 2,000 units 11/01/20 10/31/20 09:00 History carvediloL 12.5 mg PO DAILY 11/01/20 11/01/20 10/31/20 09:00 History hydrALAZINE 100 mg PO TID 11/01/20 11/01/20 10/31/20 19:00 History Active Medications: Generic Name Dose Route Start Last Admin Trade Name Freq PRN Reason Stop Dose Admin Albuterol 2.5 mg 12/22/20 19:42 Albuterol 2.5 Mg/3 Ml Nebu IH Q4HRT PRN Shortness Of Breath Heparin Sodium (Porcine) 5,000 unit 12/24/20 10:00 Heparin 5,000 Unit/1 Ml Vial SUB-Q Q12HR THOMAS Metronidazole 500 mg in 100 mls @ 100 mls/hr 12/22/20 20:00 12/24/20 05:21 Flagyl 500 Mg/100 Ml IV 100 mls/hr Q8H THOMAS Administration Protocol Cefepime HCl 2 gm in 100 mls @ 200 mls/hr 12/23/20 16:00 12/23/20 21:00 Cefepime/Ns 2 Gm/100 Ml IV 200 mls/hr Q24H THOMAS Administration Protocol Sodium Chloride 100 mls @ 999 mls/hr 12/23/20 11:03 Nacl 0.9% IV RYLAND PRN Hypotension Propofol 1,000 mg in 100 mls @ 5.484 mls/hr 12/23/20 19:00 12/24/20 02:30 Diprivan 10 Mg/Ml IV 10 mcg/kg/min TITR THOMAS 5.484 mls/hr Titration Protocol 10 MCG/KG/MIN Sodium Chloride 1,000 mls @ 999 mls/hr 12/24/20 07:30 12/24/20 07:09 Nacl 0.9% 1000 Ml IV 12/24/20 08:30 999 mls/hr BOLUS ONE Administration Morphine Sulfate 2 mg 12/23/20 10:00 12/24/20 02:19 Morphine 2 Mg/1 Ml Inj IV 2 mg Q4H PRN Administration Pain, Moderate (4-6) Nystatin 1 applic 12/23/20 11:00 12/23/20 12:11 Nystatin Cream 15 Gm Tube TP Not Given DAILY THOMAS Ondansetron HCl 4 mg 12/22/20 19:42 Ondansetron 4 Mg/2 Ml Inj IV Q8H PRN Nausea And Vomiting Sodium Chloride 10 ml 12/22/20 22:00 12/23/20 22:03 Sodium Chloride 0.9% 10 Ml Flush Syringe IV 10 ml BID THOMAS Administration Sodium Chloride 10 ml 12/22/20 19:42 Sodium Chloride 0.9% 10 Ml Flush Syringe IV PRN PRN LINE FLUSH Triamcinolone Acetonide 1 applic 12/23/20 11:00 12/23/20 12:11 Triamcinolone 0.1% Cream 15 Gm TP Not Given DAILY THOMAS
--- NOTE | 2020-12-24 09:24 | Progress Note ---
Assessment and Plan POD#1 s/p ex lap with extensive lysis of adhesions and two small bowel resections with primary anastamosis for SBO with necrotic segement small bowel. Afebrile and stable on vent. ESRF-DD awaiting vascular access for dialysis later today. Hyperkalemia should improve with dialysis. Pt will likely have significant post op ileus and should be started on PPN until TPN line can be placed. continue NGT decompression and abx. Wean to extubation as tolerated and per software licensing specialist management. Will follow closely. Spoke with daughter Cristopher who expressed understanding of current condition. Subjective Date of service: 12/24/20 Narrative: no acute events. Pt has not gotten access for dialysis as yet. Continues to be intubated. Objective Vital Signs - 12hr 12/23/20 12/23/20 12/23/20 21:30 21:41 21:51 Temperature Pulse Rate 100 H 100 H 97 H Pulse Rate [ From Monitor] Respiratory 16 18 20 Rate Blood Pressure 113/70 113/70 111/69 O2 Sat by Pulse 100 100 100 Oximetry 12/23/20 12/23/20 12/23/20 22:00 22:11 22:21 Temperature Pulse Rate 99 H 102 H 99 H Pulse Rate [ From Monitor] Respiratory 23 21 14 Rate Blood Pressure 117/72 117/72 116/70 O2 Sat by Pulse 100 100 100 Oximetry 12/23/20 12/23/20 12/23/20 22:30 22:41 22:51 Temperature Pulse Rate 100 H 102 H 104 H Pulse Rate [ From Monitor] Respiratory 27 H 28 H 35 H Rate Blood Pressure 123/76 123/76 107/67 O2 Sat by Pulse 100 100 100 Oximetry 12/23/20 12/23/20 12/23/20 23:00 23:11 23:21 Temperature Pulse Rate 106 H 106 H 108 H Pulse Rate [ From Monitor] Respiratory 26 H 25 H 25 H Rate Blood Pressure 106/68 106/68 127/77 O2 Sat by Pulse 100 100 100 Oximetry 12/23/20 12/23/20 12/23/20 23:30 23:41 23:42 Temperature Pulse Rate 110 H 113 H 117 H Pulse Rate [ From Monitor] Respiratory 44 H 38 H Rate Blood Pressure 102/67 102/67 96/61 O2 Sat by Pulse 100 100 100 Oximetry 12/23/20 12/24/20 12/24/20 23:51 00:00 00:11 Temperature 98.8 F Pulse Rate 114 H 116 H 122 H Pulse Rate [ From Monitor] Respiratory 26 H 29 H 39 H Rate Blood Pressure 96/61 93/59 93/59 O2 Sat by Pulse 100 100 100 Oximetry 12/24/20 12/24/20 12/24/20 00:21 00:30 00:34 Temperature Pulse Rate 124 H 116 H Pulse Rate [ From Monitor] Respiratory 29 H 27 H 24 Rate Blood Pressure 90/59 77/47 O2 Sat by Pulse 100 100 99 Oximetry 12/24/20 12/24/20 12/24/20 00:41 00:51 01:00 Temperature Pulse Rate 114 H 112 H 113 H Pulse Rate [ From Monitor] Respiratory 29 H 32 H 21 Rate Blood Pressure 77/47 80/53 101/64 O2 Sat by Pulse 100 100 100 Oximetry 12/24/20 12/24/20 12/24/20 01:11 01:21 01:30 Temperature Pulse Rate 115 H 114 H 115 H Pulse Rate [ From Monitor] Respiratory 18 26 H 19 Rate Blood Pressure 101/64 93/64 96/61 O2 Sat by Pulse 100 100 100 Oximetry 12/24/20 12/24/20 12/24/20 01:41 01:51 02:00 Temperature Pulse Rate 117 H 118 H 119 H Pulse Rate [ From Monitor] Respiratory 21 42 H 25 H Rate Blood Pressure 96/61 91/57 97/61 O2 Sat by Pulse 100 100 100 Oximetry 12/24/20 12/24/20 12/24/20 02:11 02:21 02:30 Temperature Pulse Rate 123 H 122 H 121 H Pulse Rate [ From Monitor] Respiratory 35 H 31 H 32 H Rate Blood Pressure 97/61 90/55 75/50 O2 Sat by Pulse 100 100 100 Oximetry 12/24/20 12/24/20 12/24/20 02:41 02:51 03:00 Temperature Pulse Rate 120 H 119 H 113 H Pulse Rate [ From Monitor] Respiratory 32 H 39 H 38 H Rate Blood Pressure 75/50 79/48 103/68 O2 Sat by Pulse 100 99 98 Oximetry 12/24/20 12/24/20 12/24/20 03:11 03:21 03:30 Temperature Pulse Rate 113 H 113 H 115 H Pulse Rate [ From Monitor] Respiratory 39 H 29 H 41 H Rate Blood Pressure 103/68 102/66 106/67 O2 Sat by Pulse 100 100 100 Oximetry 12/24/20 12/24/20 12/24/20 03:41 03:42 03:51 Temperature Pulse Rate 115 H 112 H 116 H Pulse Rate [ From Monitor] Respiratory 30 H 46 H Rate Blood Pressure 106/67 105/69 105/69 O2 Sat by Pulse 100 100 99 Oximetry 12/24/20 12/24/20 12/24/20 04:00 04:11 04:21 Temperature 98.7 F Pulse Rate 117 H 117 H 115 H Pulse Rate [ From Monitor] Respiratory 36 H 39 H 40 H Rate Blood Pressure 98/62 102/66 97/61 O2 Sat by Pulse 99 99 98 Oximetry 12/24/20 12/24/20 12/24/20 04:30 04:41 04:51 Temperature Pulse Rate 113 H 116 H 117 H Pulse Rate [ From Monitor] Respiratory 32 H 18 27 H Rate Blood Pressure 101/62 101/62 101/66 O2 Sat by Pulse 98 99 99 Oximetry 12/24/20 12/24/20 12/24/20 05:00 05:11 05:21 Temperature Pulse Rate 115 H 115 H 117 H Pulse Rate [ From Monitor] Respiratory 27 H 26 H 19 Rate Blood Pressure 92/62 92/62 92/58 O2 Sat by Pulse 98 98 99 Oximetry 12/24/20 12/24/20 12/24/20 05:31 05:41 05:51 Temperature Pulse Rate 115 H 113 H 119 H Pulse Rate [ From Monitor] Respiratory 21 17 23 Rate Blood Pressure 76/56 101/60 106/64 O2 Sat by Pulse 98 98 100 Oximetry 12/24/20 12/24/20 12/24/20 06:00 06:11 06:21 Temperature Pulse Rate 112 H 114 H 110 H Pulse Rate [ From Monitor] Respiratory 26 H 25 H 34 H Rate Blood Pressure 85/50 91/52 87/53 O2 Sat by Pulse 100 100 97 Oximetry 12/24/20 12/24/20 12/24/20 06:30 06:41 06:51 Temperature Pulse Rate 108 H 107 H 107 H Pulse Rate [ From Monitor] Respiratory 26 H 20 22 Rate Blood Pressure 99/62 94/60 111/64 O2 Sat by Pulse 99 99 100 Oximetry 12/24/20 12/24/20 12/24/20 08:00 08:23 08:40 Temperature 98.4 F Pulse Rate 108 H Pulse Rate [ 106 H From Monitor] Respiratory 20 Rate Blood Pressure 103/69 O2 Sat by Pulse 98 96 Oximetry - General physical appearance no distress, no pain - Neck other (endotracheal tube in place with swollen toungue protruding) - Respiratory normal expansion, normal respiratory effort - Abdomen soft, distended, other (dressing c/d/i, appropriately tender to palpation, NGT canister with bilious fluid) - Labs 12/24/20 10:29 12/24/20 01:20 Diabetes panel 12/23/20 12/24/20 Range/Units 20:40 01:20 Sodium 134 L 139 (137-145) mmol/L Potassium 6.9 H* D 6.3 H* (3.6-5.0) mmol/L Chloride 102.1 104.1 (98-107) mmol/L Carbon Dioxide 18 L 20 L (22-30) mmol/L BUN 87 H 91 H (9-20) mg/dL Creatinine 15.3 H 15.3 H (0.8-1.3) mg/dL Glucose 103 H 99 (75-100) mg/dL Calcium 6.9 L 7.5 L (8.4-10.2) mg/dL Calcium panel 12/23/20 12/24/20 Range/Units 20:40 01:20 Calcium 6.9 L 7.5 L (8.4-10.2) mg/dL Pituitary panel 12/23/20 12/24/20 Range/Units 20:40 01:20 Sodium 134 L 139 (137-145) mmol/L Potassium 6.9 H* D 6.3 H* (3.6-5.0) mmol/L Chloride 102.1 104.1 (98-107) mmol/L Carbon Dioxide 18 L 20 L (22-30) mmol/L BUN 87 H 91 H (9-20) mg/dL Creatinine 15.3 H 15.3 H (0.8-1.3) mg/dL Glucose 103 H 99 (75-100) mg/dL Calcium 6.9 L 7.5 L (8.4-10.2) mg/dL Adrenal panel 12/23/20 12/24/20 Range/Units 20:40 01:20 Sodium 134 L 139 (137-145) mmol/L Potassium 6.9 H* D 6.3 H* (3.6-5.0) mmol/L Chloride 102.1 104.1 (98-107) mmol/L Carbon Dioxide 18 L 20 L (22-30) mmol/L BUN 87 H 91 H (9-20) mg/dL Creatinine 15.3 H 15.3 H (0.8-1.3) mg/dL Glucose 103 H 99 (75-100) mg/dL Calcium 6.9 L 7.5 L (8.4-10.2) mg/dL
[2020-12-24 11:35] LABS: Basophils % (Auto) 0.3 % (0.0-1.8); Eosinophils % (Auto) 0.3 % (0.0-4.3); Hematocrit 31.2 % (35.5-45.6); Hemoglobin 10.5 gm/dl (11.8-15.2); Lymphocytes # (Auto) 0.2 K/mm3 (1.2-5.4); Lymphocytes % (Auto) 3.7 % (13.4-35.0); Mean Corpuscular HGB Conc 34 % (32-34); Mean Corpuscular Volume 90 fl (84-94); Monocytes # (Auto) 0.6 K/mm3 (0.0-0.8); Monocytes % (Auto) 9.8 % (0.0-7.3); Platelet Count 124 K/mm3 (140-440); Red Blood Count 3.49 M/mm3 (3.65-5.03); Red Cell Distribution Width 17.5 % (13.2-15.2)
--- NOTE | 2020-12-24 11:49 | Consultation ---
History of Present Illness Consult date: 12/24/20 Requesting physician: LAXMI OLSON Reason for consult: other (Acute Hypoxemic Respiratory Failure on MVS; SBO s/p ex-lap) History of present illness: PULMONARY/CCM CONSULT NOTE (Full dictation # [id number]) Please see dictated notes for full details Past History Past Medical History: acute [place], ESRD, heart failure, hypertension, other (See HPI) Past Surgical History: appendectomy, cholecystectomy, Other (L inguinal hernia repair) Medications and Allergies Allergies Allergy/AdvReac Type Severity Reaction Status Date / Time No Known Allergies Allergy Verified 06/09/20 15:27 Home Medications Medication Instructions Recorded Confirmed Last Taken Type Albuterol Mdi (or & Nicu Only) 2 puff IH QID PRN #1 inhalation 04/01/17 11/01/20 10/31/20 09:00 Rx [ProAir HFA Inhaler] Calcium Acetate 667 mg PO DAILY 04/20/20 11/01/20 10/31/20 09:00 History Centrum Men's Tablet 1 tab PO DAILY 04/20/20 11/01/20 10/31/20 09:00 History Cinacalcet 30 mg PO DAILY 04/20/20 11/01/20 10/31/20 09:00 History Dialyvite with Zinc Tablet 1 tab PO DAILY 04/20/20 11/01/20 10/31/20 09:00 History Magnesium 250 mg PO BID 04/20/20 11/01/20 10/31/20 17:00 History Triamcinolone 0.1% 1 1000units TRANSDERMA DAILY 04/20/20 11/01/20 10/31/20 09:00 History Vit B12/Folic Acid/B6/Aa No.15 1,000 mg PO DAILY 04/20/20 11/01/20 10/31/20 09:00 History amLODIPine 10 mg PO DAILY 06/09/20 11/01/20 10/31/20 09:00 History AtorvaSTATin 40 mg PO HS 11/01/20 11/01/20 10/31/20 21:00 History Benadryl 25 mg PO HS 11/01/20 11/01/20 10/31/20 21:00 History Diclofenac 1 TRANSDERMA QID 11/01/20 10/31/20 19:00 History Fluticasone Propionate 1 spray INTRANASAL DAILY 11/01/20 11/01/20 10/31/20 09:00 History Vitamin D3 2,000 units 11/01/20 10/31/20 09:00 History carvediloL 12.5 mg PO DAILY 11/01/20 11/01/20 10/31/20 09:00 History hydrALAZINE 100 mg PO TID 11/01/20 11/01/20 10/31/20 19:00 History Active Meds: Active Medications Albuterol (Albuterol 2.5 Mg/3 Ml Nebu) 2.5 mg IH Q4HRT PRN PRN Reason: Shortness Of Breath Fentanyl (Fentanyl 100 Mcg/2 Ml Inj) 50 mcg IV Q10MIN PRN PRN Reason: ANALGESIA Heparin Sodium (Porcine) (Heparin 5,000 Unit/1 Ml Vial) 5,000 unit SUB-Q Q12HR THOMAS Metronidazole (Flagyl 500 Mg/100 Ml) 500 mg in 100 mls @ 100 mls/hr IV Q8H THOMAS; Protocol Last Admin: 12/24/20 05:21 Dose: 100 mls/hr Documented by: Cefepime HCl (Cefepime/Ns 2 Gm/100 Ml) 2 gm in 100 mls @ 200 mls/hr IV Q24H THOMAS; Protocol Last Admin: 12/23/20 21:00 Dose: 200 mls/hr Documented by: Sodium Chloride (Nacl 0.9%) 100 mls @ 999 mls/hr IV RYLAND PRN PRN Reason: Hypotension Propofol (Diprivan 10 Mg/Ml) 1,000 mg in 100 mls @ 5.484 mls/hr IV TITR THOMAS; Protocol Last Admin: 12/24/20 08:45 Dose: 10 mcg/kg/min, 5.484 mls/hr Documented by: Fentanyl Citrate (Fentanyl Drip Premix) 2,000 mcg in 100 mls @ 4.57 mls/hr IV TITR THOMAS; Protocol Morphine Sulfate (Morphine 2 Mg/1 Ml Inj) 2 mg IV Q4H PRN PRN Reason: Pain, Moderate (4-6) Last Admin: 12/24/20 02:19 Dose: 2 mg Documented by: Nystatin (Nystatin Cream 15 Gm Tube) 1 applic TP DAILY THOMAS Last Admin: 12/23/20 12:11 Dose: Not Given Documented by: Ondansetron HCl (Ondansetron 4 Mg/2 Ml Inj) 4 mg IV Q8H PRN PRN Reason: Nausea And Vomiting Sodium Chloride (Sodium Chloride 0.9% 10 Ml Flush Syringe) 10 ml IV BID [facility] Last Admin: 12/23/20 22:03 Dose: 10 ml Documented by: Sodium Chloride (Sodium Chloride 0.9% 10 Ml Flush Syringe) 10 ml IV PRN PRN PRN Reason: LINE FLUSH Triamcinolone Acetonide (Triamcinolone 0.1% Cream 15 Gm) 1 applic TP DAILY [facility] Last Admin: 12/23/20 12:11 Dose: Not Given Documented by: Physical Examination Vital signs: Vital Signs Temp Pulse Resp BP Pulse Ox 101.2 F H 102 H 18 121/85 95 12/22/20 14:15 12/22/20 14:15 12/22/20 14:15 12/22/20 14:15 12/22/20 14:15 Results - Laboratory Findings CBC and BMP: 12/24/20 10:29 12/24/20 10:29 ABG ABG pH 7.436 (7.320-7.450) 12/24/20 04:00 POC ABG pCO2 28.1 mmHg (32.0-48.0) L 12/24/20 04:00 ABG pCO2 49.7 mm Hg 12/23/20 20:35 POC ABG pO2 103.9 mmHg (83-108) 12/24/20 04:00 ABG pO2 50.1 mm Hg (80.0-90.0) L 12/23/20 20:35 POC ABG HCO3 18.5 12/24/20 04:00 ABG O2 Saturation 98 (0-100) 12/24/20 04:00 PT/INR, D-dimer PT 13.8 Sec. (12.2-14.9) 12/22/20 14:38 INR 1.07 (0.87-1.13) 12/22/20 14:38 Abnormal lab findings: Abnormal Labs 12/22/20 12/22/20 12/22/20 14:38 14:38 14:38 WBC RBC Hgb 11.2 L Hct 35.0 L RDW 16.7 H Plt Count Lymph % (Auto) [place] % (Auto) Lymph # (Auto) Seg Neutrophils % Seg Neuts % (Manual) 94.0 H Lymphocytes % (Manual) 5.0 L Seg Neutrophils # Man Lymphocytes # (Manual) 0.3 L ABG pH POC ABG pCO2 POC ABG pO2 ABG pO2 ABG O2 Saturation ABG Base Excess ABG Hemoglobin ABG Sodium ABG Potassium ABG Chloride ABG Glucose Oxyhemoglobin Sodium Potassium Carbon Dioxide BUN 58 H Creatinine 13.2 H Glucose 113 H Lactic Acid 3.60 H* Calcium Total Bilirubin 1.30 H AST ALT Alkaline Phosphatase 155 H Total Protein Albumin Arterial Blood Glucose Arterial Blood Ionized Calcium Crossmatch 12/22/20 12/22/20 12/23/20 16:26 17:47 05:22 WBC RBC Hgb Hct RDW Plt Count Lymph % (Auto) [place] % (Auto) Lymph # (Auto) Seg Neutrophils % Seg Neuts % (Manual) Lymphocytes % (Manual) Seg Neutrophils # Man Lymphocytes # (Manual) ABG pH POC ABG pCO2 POC ABG pO2 ABG pO2 ABG O2 Saturation ABG Base Excess ABG Hemoglobin ABG Sodium ABG Potassium ABG Chloride ABG Glucose Oxyhemoglobin Sodium Potassium Carbon Dioxide BUN Creatinine Glucose Lactic Acid 2.80 H* 3.10 H* 2.30 H* Calcium Total Bilirubin AST ALT Alkaline Phosphatase Total Protein Albumin Arterial Blood Glucose Arterial Blood Ionized Calcium Crossmatch 12/23/20 12/23/20 12/23/20 05:22 05:22 06:35 WBC 12.1 H RBC Hgb 11.0 L Hct 33.7 L RDW 16.9 H Plt Count Lymph % (Auto) [place] % (Auto) Lymph # (Auto) Seg Neutrophils % Seg Neuts % (Manual) 93.0 H Lymphocytes % (Manual) 1.0 L Seg Neutrophils # Man 11.3 H Lymphocytes # (Manual) 0.1 L ABG pH POC ABG pCO2 POC ABG pO2 ABG pO2 ABG O2 Saturation ABG Base Excess ABG Hemoglobin ABG Sodium ABG Potassium ABG Chloride ABG Glucose Oxyhemoglobin Sodium Potassium 5.7 H D Carbon Dioxide BUN 73 H Creatinine 14.2 H Glucose Lactic Acid 2.30 H* Calcium 7.9 L Total Bilirubin 1.40 H AST 119 H ALT 130 H Alkaline Phosphatase 183 H Total Protein 6.1 L Albumin 3.6 L Arterial Blood Glucose Arterial Blood Ionized Calcium Crossmatch 12/23/20 12/23/20 12/23/20 11:40 13:53 16:47 WBC RBC Hgb 10.0 L Hct 30.4 L RDW Plt Count Lymph % (Auto) [place] % (Auto) Lymph # (Auto) Seg Neutrophils % Seg Neuts % (Manual) Lymphocytes % (Manual) Seg Neutrophils # Man Lymphocytes # (Manual) ABG pH POC ABG pCO2 POC ABG pO2 137.5 H ABG pO2 ABG O2 Saturation ABG Base Excess ABG Hemoglobin 9.7 L ABG Sodium 134.1 L ABG Potassium 6.6 H ABG Chloride ABG Glucose 103 H Oxyhemoglobin Sodium Potassium Carbon Dioxide BUN Creatinine Glucose Lactic Acid Calcium Total Bilirubin AST ALT Alkaline Phosphatase Total Protein Albumin Arterial Blood Glucose 103 H Arterial Blood Ionized Calcium 3.8 L Crossmatch See Detail 12/23/20 12/23/20 12/24/20 20:35 20:40 01:20 WBC RBC Hgb Hct RDW Plt Count Lymph % (Auto) [place] % (Auto) Lymph # (Auto) Seg Neutrophils % Seg Neuts % (Manual) Lymphocytes % (Manual) Seg Neutrophils # Man Lymphocytes # (Manual) ABG pH 7.252 L POC ABG pCO2 POC ABG pO2 ABG pO2 50.1 L ABG O2 Saturation 81.1 L ABG Base Excess -5.9 L ABG Hemoglobin 12.1 L ABG Sodium ABG Potassium ABG Chloride ABG Glucose Oxyhemoglobin 78.6 L Sodium 134 L Potassium 6.9 H* D 6.3 H* Carbon Dioxide 18 L 20 L BUN 87 H 91 H Creatinine 15.3 H 15.3 H Glucose 103 H Lactic Acid Calcium 6.9 L 7.5 L Total Bilirubin AST ALT Alkaline Phosphatase Total Protein Albumin Arterial Blood Glucose Arterial Blood Ionized Calcium Crossmatch 12/24/20 12/24/20 04:00 10:29 WBC RBC 3.49 L Hgb 10.5 L Hct 31.2 L RDW 17.5 H Plt Count 124 L Lymph % (Auto) 3.7 L [place] % (Auto) 9.8 H Lymph # (Auto) 0.2 L Seg Neutrophils % 85.9 H Seg Neuts % (Manual) Lymphocytes % (Manual) Seg Neutrophils # Man Lymphocytes # (Manual) ABG pH POC ABG pCO2 28.1 L POC ABG pO2 ABG pO2 ABG O2 Saturation ABG Base Excess ABG Hemoglobin ABG Sodium 133.9 L ABG Potassium 5.3 H ABG Chloride 108.0 H ABG Glucose Oxyhemoglobin Sodium Potassium Carbon Dioxide BUN Creatinine Glucose Lactic Acid Calcium Total Bilirubin AST ALT Alkaline Phosphatase Total Protein Albumin Arterial Blood Glucose Arterial Blood Ionized Calcium 4.0 L Crossmatch
[2020-12-24 11:56] LABS: Albumin 2.1 g/dL (3.9-5); Calcium 7.6 mg/dL (8.4-10.2)
[2020-12-24] MEDS ORDERED: LIP THERAPY VASELINE TP PRN (12:03)
[2020-12-24] MEDS ORDERED: MINERAL OIL/PETROLATUM, WHITE OPHTH OINT 3.5 GM OU PRN (12:03)
[2020-12-24] MEDS: fentaNYL DRIP Premix 2,000 MCG/100 ML BAG IV SCH ×2 (12:37→21:39)
--- NOTE | 2020-12-24 13:06 | Progress Note ---
Assessment and Plan Assessment and plan: #Acute hypoxic respiratory failure Remains intubated after procedure. Vent management Critical care statement The high probability of a clinically significant, sudden or life threatening deterioration of the [pulmonary, cardiac, neuro, renal] system(s) required my full and direct attention, intervention and personal management. The aggregate critical care time was [65] minutes. This time is in addition to time spent performing reported procedures but includes the following: [x] Data Review and interpretation [x] Patient assessment and monitoring of vital signs [x] Documentation [x] Medication orders and management #Sepsis secondary to secondary bacterial peritonitis -POA IV antibiotics ID on board #Small bowel obstruction with peritonitis Status post exploratory laparotomy Surgery on board Maintain n.p.o. for now #Congestive heart failure Continue medications #ESRD Peritoneal dialysis on hold for now. Catheter placement-hemodialysis today per nephrology Nephrology on board #Congestive heart failure Stable #Nicotine abuse Smoking cessation counseling provided #DVT prophylaxis-Heparin for DVT prophylaxis History Interval history: 60 YO Male with ESRD on PD, GERD, Crohn's Disease, Nicotine Dependence, HTN, Systolic CHF(EF 35%) presents to ED for evaluation. Patient reports "my stomach started hurting last night". Patient states that he had experienced abdominal pain which began overnight shortly after eating fast food. Patient states that his pain is 10/10, periumbilical, constant, associated with fever, nausea, as well as multiple episodes of vomiting. Patient reports inability to undergo peritoneal dialysis. EMS was notified and upon arrival the patient was found to be in distress and subsequently transported to [facility] for further care and evaluation of the aforementioned symptoms. Patient seen and evaluated in the emergency department. All lab and imaging studies reviewed. Patient underwent CT scan of the abdomen and pelvis which revealed evidence of a partial small bowel obstruction. Patient found to have symptoms consistent with spontaneous bacterial peritonitis. Patient also found to have end-stage renal disease on peritoneal dialysis. Patient admitted to medical floor and treated with empiric IV antibiotic therapy. General surgery team consulted in ED. Nephrology team consulted in ED. Patient denies fever, chills, chest pain, palpitations, productive cough, skin rash, recent ill contacts, ingestion of food/water from new or different sources, or known exposure to COVID-19. Prior admission on reviewed. All medication listed at time of admission has been reconciled. Advanced care planning conducted in ED. Hospital course 12/23. Patient had temperature 101.2 F, tachycardia and elevated lactic acid on admission. Meet sepsis criteria. Started on IV antibiotics. ID has been consulted. Surgery consulted this a.m.-advised laparoscopy. He remains on NG tube connected to suction. 12/24. Patient was noted to have peritonitis yesterday and patient undergoing exploratory laparotomy. Patient remained intubated after procedure and is in ICU. Now on broad-spectrum antibiotics. ID on board. Hospitalist Physical - Physical exam Narrative exam: VITAL SIGNS: Reviewed. GENERAL: Awake HEAD: No signs of head trauma. EYES: Pupils are equal. Extraocular motions intact. MOUTH: Oropharynx is normal. NECK: No adenopathy, no JVD. CHEST: Diminished breath sounds at the bases CARDIAC: normal S1 and S2, without murmurs, gallops, or rubs. ABDOMEN: Tense abdomen, tenderness to palpation more in the right. BS + MUSCULOSKELETAL: Edema NEUROLOGIC EXAM: Alert and oriented x3. No focal neurologic deficits SKIN: No obvious lesions - Constitutional Vitals: Temp Pulse Resp BP Pulse Ox 98.4 F 105 H 20 121/75 98 12/24/20 12:00 12/24/20 11:55 12/24/20 08:40 12/24/20 11:55 12/24/20 11:55 HEART Score - HEART Score Troponin: Troponin T 0.021 ng/mL (0.00-0.029) 12/22/20 14:38 Results - Labs CBC & Chem 7: 12/24/20 10:29 12/24/20 10:29 Labs: Laboratory Last Values WBC 5.9 K/mm3 (4.5-11.0) 12/24/20 10:29 RBC 3.49 M/mm3 (3.65-5.03) L 12/24/20 10:29 Hgb 10.5 gm/dl (11.8-15.2) L 12/24/20 10:29 Hct 31.2 % (35.5-45.6) L 12/24/20 10:29 MCV 90 fl (84-94) 12/24/20 10:29 MCH 30 pg (28-32) 12/24/20 10:29 MCHC 34 % (32-34) 12/24/20 10:29 RDW 17.5 % (13.2-15.2) H 12/24/20 10:29 Plt Count 124 K/mm3 (140-440) L 12/24/20 10:29 Lymph % (Auto) 3.7 % (13.4-35.0) L 12/24/20 10:29 Grainger % (Auto) 9.8 % (0.0-7.3) H 12/24/20 10:29 Eos % (Auto) 0.3 % (0.0-4.3) 12/24/20 10:29 Baso % (Auto) 0.3 % (0.0-1.8) 12/24/20 10: Lymph # (Auto) 0.2 K/mm3 (1.2-5.4) L 12/24/20 10: Grainger # (Auto) 0.6 K/mm3 (0.0-0.8) 12/24/20 10: Eos # (Auto) 0.0 K/mm3 (0.0-0.4) 12/24/20 10: Baso # (Auto) 0.0 K/mm3 (0.0-0.1) 12/24/20 10:29 Add Manual Diff Complete 12/23/20 05:22 Total Counted 100 12/23/20 05:22 Seg Neutrophils % 85.9 % (40.0-70.0) H 12/24/20 10:29 Seg Neuts % (Manual) 93.0 % (40.0-70.0) H 12/23/20 05:22 Band Neutrophils % 4.0 % 12/23/20 05:22 Lymphocytes % (Manual) 1.0 % (13.4-35.0) L 12/23/20 05:22 Monocytes % (Manual) 2.0 % (0.0-7.3) 12/23/20 05:22 Nucleated RBC % Not Reportable 12/23/20 05:22 Seg Neutrophils # 5.0 K/mm3 (1.8-7.7) 12/24/20 10:29 Seg Neutrophils # Man 11.3 K/mm3 (1.8-7.7) H 12/23/20 05:22 Band Neutrophils # 0.5 K/mm3 12/23/20 05:22 Lymphocytes # (Manual) 0.1 K/mm3 (1.2-5.4) L 12/23/20 05:22 Abs React Lymphs (Man) 0.0 K/mm3 12/23/20 05:22 Monocytes # (Manual) 0.2 K/mm3 (0.0-0.8) 12/23/20 05:22 Eosinophils # (Manual) 0.0 K/mm3 (0.0-0.4) 12/23/20 05:22 Basophils # (Manual) 0.0 K/mm3 (0.0-0.1) 12/23/20 05:22 Metamyelocytes # 0.0 K/mm3 12/23/20 05:22 Myelocytes # 0.0 K/mm3 12/23/20 05:22 Promyelocytes # 0.0 K/mm3 12/23/20 05:22 Blast Cells # 0.0 K/mm3 12/23/20 05:22 WBC Morphology Not Reportable 12/23/20 05:22 Hypersegmented Neuts Not Reportable 12/23/20 05:22 Hyposegmented Neuts Not Reportable 12/23/20 05:22 Hypogranular Neuts Not Reportable 12/23/20 05:22 Smudge Cells Not Reportable 12/23/20 05:22 Toxic Granulation Not Reportable 12/23/20 05:22 Toxic Vacuolation Not Reportable 12/23/20 05:22 Dohle Bodies Not Reportable 12/23/20 05:22 Pelger-Huet Anomaly Not Reportable 12/23/20 05:22 Lamar Rods Not Reportable 12/23/20 05:22 Platelet Estimate Consistent w auto 12/23/20 05:22 Clumped Platelets Not Reportable 12/23/20 05:22 Plt Clumps, EDTA Not Reportable 12/23/20 05:22 Large Platelets Not Reportable 12/23/20 05:22 Giant Platelets Not Reportable 12/23/20 05:22 Platelet Satelliting Not Reportable 12/23/20 05:22 Plt Morphology Comment Not Reportable 12/23/20 05:22 RBC Morphology Not Reportable 12/23/20 05:22 Dimorphic RBCs Not Reportable 12/23/20 05:22 Polychromasia Not Reportable 12/23/20 05:22 Hypochromasia Not Reportable 12/23/20 05:22 Poikilocytosis Not Reportable 12/23/20 05:22 Anisocytosis 1+ 12/23/20 05:22 Microcytosis Not Reportable 12/23/20 05:22 Macrocytosis Not Reportable 12/23/20 05:22 Spherocytes Not Reportable 12/23/20 05:22 Pappenheimer Bodies Not Reportable 12/23/20 05:22 Sickle Cells Not Reportable 12/23/20 05:22 Target Cells Not Reportable 12/23/20 05:22 Tear Drop Cells Not Reportable 12/23/20 05:22 Ovalocytes Not Reportable 12/23/20 05:22 Helmet Cells Not Reportable 12/23/20 05:22 Washburn-Foster Bodies Not Reportable 12/23/20 05:22 [place] Rings Not Reportable 12/23/20 05:22 Jenny Cells Not Reportable 12/23/20 05:22 Bite Cells Not Reportable 12/23/20 05:22 Crenated Cell Not Reportable 12/23/20 05:22 Elliptocytes Not Reportable 12/23/20 05:22 Acanthocytes (Spur) Not Reportable 12/23/20 05:22 Rouleaux Not Reportable 12/23/20 05:22 Hemoglobin C Crystals Not Reportable 12/23/20 05:22 Schistocytes Not Reportable 12/23/20 05:22 Malaria parasites Not Reportable 12/23/20 05:22 Lucas Bodies Not Reportable 12/23/20 05:22 Hem Pathologist Commnt No 12/23/20 05:22 PT 13.8 Sec. (12.2-14.9) 12/22/20 14:38 INR 1.07 (0.87-1.13) 12/22/20 14:38 APTT 25.1 Sec. (24.2-36.6) 12/22/20 14:38 ABG pH 7.436 (7.320-7.450) 12/24/20 04:00 POC ABG pCO2 28.1 mmHg (32.0-48.0) L 12/24/20 04:00 ABG pCO2 49.7 mm Hg 12/23/20 20:35 POC ABG pO2 103.9 mmHg (83-108) 12/24/20 04:00 ABG pO2 50.1 mm Hg (80.0-90.0) L 12/23/20 20:35 POC ABG HCO3 18.5 12/24/20 04:00 ABG HCO3 21.4 mmol/L (20.0-26.0) 12/23/20 20:35 ABG O2 Saturation 98 (0-100) 12/24/20 04:00 ABG O2 Content 13.3 (0.0-44) 12/23/20 20:35 POC ABG Base Excess -4.2 12/24/20 04:00 ABG Base Excess -5.9 mmol/L (-2.0-3.0) L 12/23/20 20:35 ABG Hemoglobin 14.3 (12.0-17.5) 12/24/20 04:00 ABG Oxyhemoglobin 97.3 (94-98) 12/23/20 16:47 ABG Carboxyhemoglobin 2.4 % (0.0-5.0) 12/23/20 20:35 ABG Methemoglobin 0.7 % (0.0-1.5) 12/23/20 20:35 ABG Sodium 133.9 mmol/L (136.0-145.0) L 12/24/20 04:00 ABG Potassium 5.3 mmol/L (3.40-4.50) H 12/24/20 04:00 ABG Chloride 108.0 mmol/L (98-107) H 12/24/20 04:00 ABG Glucose 90 mg/dL (65-95) 12/24/20 04:00 Oxyhemoglobin 78.6 % (95.0-99.0) L 12/23/20 20:35 Carboxyhemoglobin 1.0 (0.5-1.5) 12/23/20 16:47 FiO2 50 % 12/23/20 20:35 FiO2 % 50 12/24/20 04:00 Sodium 141 mmol/L (137-145) 12/24/20 10:29 Potassium 5.6 mmol/L (3.6-5.0) H 12/24/20 10:29 Chloride 106.6 mmol/L (98-107) 12/24/20 10:29 Carbon Dioxide 19 mmol/L (22-30) L 12/24/20 10:29 Anion Gap 21 mmol/L 12/24/20 10:29 BUN 99 mg/dL (9-20) H 12/24/20 10:29 Creatinine 16.9 mg/dL (0.8-1.3) H 12/24/20 10:29 Estimated GFR 4 ml/min 12/24/20 10:29 BUN/Creatinine Ratio 6 % 12/24/20 10:29 Glucose 52 mg/dL (75-100) L 12/24/20 10:29 POC Glucose 95 mg/dL (70-105) 12/23/20 19:07 Lactic Acid 2.30 mmol/L (0.7-2.0) H* 12/23/20 06:35 Calcium 7.6 mg/dL (8.4-10.2) L 12/24/20 10:29 Magnesium 1.90 mg/dL (1.7-2.3) 12/22/20 14:38 Total Bilirubin 3.50 mg/dL (0.1-1.2) H 12/24/20 10:29 AST 67 units/L (5-40) H 12/24/20 10:29 ALT 71 units/L (7-56) H 12/24/20 10:29 Alkaline Phosphatase 109 units/L (35-129) 12/24/20 10:29 Ammonia 30.0 umol/L (25-60) 12/22/20 14:38 Troponin T 0.021 ng/mL (0.00-0.029) 12/22/20 14:38 Total Protein 3.5 g/dL (6.3-8.2) L D 12/24/20 10:29 Albumin 2.1 g/dL (3.9-5) L 12/24/20 10:29 Albumin/Globulin Ratio 1.5 % 12/24/20 10:29 Lipase 41 units/L (13-60) 12/22/20 14:38 Arterial Blood Glucose 90 mg/dL (65-95) 12/24/20 04:00 Arterial Blood Ionized Calcium 4.0 mg/dL (4.6-5.3) L 12/24/20 04:00 Urine Color Yellow (Yellow) 12/22/20 18:53 Urine Turbidity Clear (Clear) 12/22/20 18:53 Urine pH 7.0 (5.0-7.0) 12/22/20 18:53 Ur Specific [place] 1.012 (1.003-1.030) 12/22/20 18:53 Urine Protein >500 mg/dL (Negative) 12/22/20 18:53 Urine Glucose (UA) Neg mg/dL (Negative) 12/22/20 18:53 Urine Ketones Neg mg/dL (Negative) 12/22/20 18:53 Urine Blood Neg (Negative) 12/22/20 18:53 Urine Nitrite Neg (Negative) 12/22/20 18:53 Urine Bilirubin Neg (Negative) 12/22/20 18:53 Urine Urobilinogen < 2.0 mg/dL (<2.0) 12/22/20 18:53 Ur Leukocyte Esterase Neg (Negative) 12/22/20 18:53 Urine WBC (Auto) < 1.0 /HPF (0.0-6.0) 12/22/20 18:53 Urine RBC (Auto) 1.0 /HPF (0.0-6.0) 12/22/20 18:53 Fluid Type Dialysate 12/22/20 Unknown Fluid Color Colorless 12/22/20 Unknown Fluid Appearance Cloudy 12/22/20 Unknown Fluid WBC 208 /mm3 12/22/20 Unknown Fluid RBC 45 /mm3 12/22/20 Unknown Fluid Seg Neutrophils 82.0 % 12/22/20 Unknown Fluid Lymphocytes 11.0 % 12/22/20 Unknown Fluid Reactive Lymphs 0 % 12/22/20 Unknown Fluid Monocytes 7.0 % 12/22/20 Unknown Fluid Eosinophils 0 % 12/22/20 Unknown Fluid Basophils 0 % 12/22/20 Unknown Hepatitis A IgM Ab Non-reactive (NonReactive) 12/23/20 11:38 Hep Bs Antigen Non-reactive (Negative) 12/23/20 11:38 Hep B Core IgM Ab Non-reactive (NonReactive) 12/23/20 11:38 Hepatitis C Antibody Non-reactive (NonReactive) 12/23/20 11:38 Blood Type A POSITIVE 12/23/20 11:40 Antibody Screen Negative 12/23/20 11:40 Crossmatch See Detail 12/23/20 11:40 Microbiology: Microbiology 12/22/20 14:38 Peripheral/Venous Blood Culture - Preliminary 12/22/20 Unknown Peritioneal Dialysate Peritoneal Dialysate Culture - Preliminary 12/22/20 14:28 Peripheral/Venous Blood Culture - Preliminary NO GROWTH AFTER 24 HOURS Jeffery/IV: Voiding Method Indwelling Catheter Active Medications - Current Medications Current Medications: Generic Name Dose Route Start Last Admin Trade Name Freq PRN Reason Stop Dose Admin Albuterol 2.5 mg 12/22/20 19:42 Albuterol 2.5 Mg/3 Ml Nebu IH Q4HRT PRN Shortness Of Breath Famotidine 10 mg 12/24/20 13:00 Famotidine 20 Mg/2 Ml Inj IV BID THOMAS Fentanyl 50 mcg 12/24/20 11:35 Fentanyl 100 Mcg/2 Ml Inj IV Q10MIN PRN ANALGESIA Heparin Sodium (Porcine) 5,000 unit 12/24/20 10:00 Heparin 5,000 Unit/1 Ml Vial SUB-Q Q12HR THOMAS Hydrophilic Ointment 1 applic 12/24/20 12:03 Lip Therapy Vaseline TP Q2H PRN Dry Lips Metronidazole 500 mg in 100 mls @ 100 mls/hr 12/22/20 20:00 12/24/20 05:21 Flagyl 500 Mg/100 Ml IV 100 mls/hr Q8H THOMAS Administration Protocol Cefepime HCl 2 gm in 100 mls @ 200 mls/hr 12/23/20 16:00 12/23/20 21:00 Cefepime/Ns 2 Gm/100 Ml IV 200 mls/hr Q24H THOMAS Administration Protocol Sodium Chloride 100 mls @ 999 mls/hr 12/23/20 11:03 Nacl 0.9% IV RYLAND PRN Hypotension Propofol 1,000 mg in 100 mls @ 5.484 mls/hr 12/23/20 19:00 12/24/20 08:45 Diprivan 10 Mg/Ml IV 10 mcg/kg/min TITR THOMAS 5.484 mls/hr Administration Protocol 10 MCG/KG/MIN Fentanyl Citrate 2,000 mcg in 100 mls @ 4.57 mls/hr 12/24/20 12:00 Fentanyl Drip Premix IV TITR THOMAS Protocol 1 MCG/KG/HR Morphine Sulfate 2 mg 12/23/20 10:00 12/24/20 02:19 Morphine 2 Mg/1 Ml Inj IV 2 mg Q4H PRN Administration Pain, Moderate (4-6) Multi-Ingred Cream/Lotion/Oil/Oint 1 applic 12/24/20 12:03 Mineral Oil/Petrolatum, White Ophth Oint 3.5 Gm OU Q4H PRN Dry Eye(s) Nystatin 1 applic 12/23/20 11:00 12/23/20 12:11 Nystatin Cream 15 Gm Tube TP Not Given DAILY THOMAS Ondansetron HCl 4 mg 12/22/20 19:42 Ondansetron 4 Mg/2 Ml Inj IV Q8H PRN Nausea And Vomiting Sodium Chloride 10 ml 12/22/20 22:00 12/23/20 22:03 Sodium Chloride 0.9% 10 Ml Flush Syringe IV 10 ml BID THOMAS Administration Sodium Chloride 10 ml 12/22/20 19:42 Sodium Chloride 0.9% 10 Ml Flush Syringe IV PRN PRN LINE FLUSH Triamcinolone Acetonide 1 applic 12/23/20 11:00 12/23/20 12:11 Triamcinolone 0.1% Cream 15 Gm TP Not Given DAILY THOMAS Nutrition/Malnutrition Assess - Dietary Evaluation Nutrition/Malnutrition Findings: Nutrition Notes Start: 12/24/20 12:36 Freq: Status: Active Protocol: Document 12/24/20 12:36 CW (Rec: 12/24/20 12:48 CW [id number]) Nutrition Notes Need for Assessment generated from: MD Order Initial or Follow up Assessment Current Diagnosis CKD (stage V CKD),Hypertension ,Heart Failure Other Pertinent Diagnosis bacterial peritonitis, on PD, SBO, Crohns disease Current Diet NPO Labs/Tests K 5.6 BUN 99 Cr 16.9 BG 52 Pertinent Medications propfol at 5.484 ml/hr (145 kcal) NS 6.5L Kionex Humulin Height 5 ft 7 in Weight 91.4 kg [place] Body Weight (kg) 67.27 BMI 31.5 Weight Status Obese Subjective/Other Information MD consult on evaluae nutritional intake. Pt on mechanical vent with NGT present as of yesterday morning set to LIS. Percent of energy/protein needs met: 0%/0% Burn Absent Trauma Absent Difficulty In Swallowing Skin Integrity/Comment Intact Current % PO Negligible Minimum of two criteria No physical signs of malnutrition #1 Nutrition Diagnosis Inadequate oral intake Etiology inability to feed via po As Evidenced by Signs and Symptoms pt on mechanical vent at this time Is patient on ventilator? Yes Is Patient Ambulatory and/or Out of Bed No REE-([facility]-confined to bed) 2011.004 Kcal/Kg value to use for calculation 17 Approximate Energy Requirements Using 1554 kcal/Kg Calculation Used for Recommendations Kcal/kg Additional Notes protein needs: >135 g(>2g/ kgIBW) fluid needs: 1000 - 1500 ml/ day or per MD order Nutrition Intervention Change Diet Order: Initiate TF or feed via PO if medically feasible Nutrition Support: Nepro at 35 ml/hr with a free water flush of 150 ml q4h. Kcal 1,512 Protein (gm) 68 Fluid (mL) 611 Goal #1 Start TF or feed via PO if extubated Anticipated Discharge Needs: unable to determine at this time Follow-Up By: 12/26/20 Additional Comments F/U for TF consult, vent status
--- NOTE | 2020-12-24 13:53 | XRay Report ---
CHEST 1 VIEW 12/24/2020 1:30 PM INDICATION / CLINICAL INFORMATION: vascath placement. COMPARISON: 12/23/2020 FINDINGS: SUPPORT DEVICES: NG tube extends within the stomach. Right jugular line tip overlies the distal SVC HEART / MEDIASTINUM: No significant abnormality. LUNGS / PLEURA: Mild increased interstitial prominence and perihilar opacities may be vascular. No si gnificant change No pneumothorax. Signer Name: Chip Garcia MD Signed: 12/24/2020 1:49 PM Workstation Name: [id number]
[2020-12-24] MEDS: CEFEPIME/NS 2 GM/100 ML 2 GM/100 ML BAG IV SCH (16:06)
[2020-12-24] MEDS: HEPARIN 5,000 UNIT/1 ML VIAL SUB-Q SCH (21:38)
[2020-12-24] MEDS: FAMOTIDINE 20 MG/2 ML INJ IV SCH (21:38)
[2020-12-25] MEDS: HEPARIN 5,000 UNIT/1 ML VIAL SUB-Q SCH ×3 (03:24→22:51)
[2020-12-25] MEDS: NYSTATIN CREAM 15 GM TUBE TP SCH ×2 (03:25→10:28)
[2020-12-25] MEDS: TRIAMCINOLONE 0.1% CREAM 15 GM TP SCH ×2 (03:25→10:27)
[2020-12-25] MEDS: FAMOTIDINE 20 MG/2 ML INJ IV SCH ×3 (03:26→22:52)
--- NOTE | 2020-12-25 04:36 | Consultation ---
DATE OF CONSULTATION: 12/24/2020 PULMONARY CRITICAL CARE CONSULT NOTE CONSULTING PHYSICIAN: ____. REASON FOR CONSULTATION: Acute hypoxemic respiratory failure, on mechanical ventilatory support, small-bowel obstruction, status post exploratory laparotomy and resection with end-to-end anastomosis. HISTORY OF PRESENT ILLNESS: As follows, the patient is a 60-year-old male with a past medical history significant amongst other things both for a diagnosis of end-stage renal disease on peritoneal dialysis, but also Crohn's disease and CHF, heart failure with reduced ejection fraction of 35%, came into the emergency room complaining of abdominal pain that had been going on since the night prior to presentation. This happened soon after he ate his dinner. Pain was a 10/10, periumbilical, constant. He also complained of fever, nausea, multiple episodes of vomiting. He was unable to undergo his peritoneal dialysis, also as a result EMS was notified. They found him in distress, brought him to the emergency room. In the emergency room, he ultimately was diagnosed with a partial small-bowel obstruction and suspicion of spontaneous bacterial peritonitis. He was seen by the surgeon and he was taken to the operating room for management. As mentioned, he required partial bowel resection and end-to-end anastomosis. Postop, he was brought into the intensive care unit on the mechanical ventilator. We are asked to assist with management. When I stopped by to see him, was rested in bed, his serum potassium had been 5.7 the day before and was 6.3 today. He was responsive. He complained of pain. He has not had any episodes of nausea and vomiting today. With regards to tobacco use/abuse history, he is described as a former smoker. This really is as much of the history of presentation as I have. PAST MEDICAL HISTORY: Again, significant for Crohn's disease, end-stage renal disease on dialysis, history of hypertension, congestive heart failure, history of gastroesophageal reflux disease, history of migraines. PAST SURGICAL HISTORY: He had an appendectomy and a cholecystectomy prior to this surgery. MEDICATIONS: He was on at the time I stopped by to see him were reviewed. Pertinent medications include the following: Albuterol 2.5 mg nebulized q. 4 hours p.r.n. shortness of breath, cefepime 2 grams IV daily, heparin 5000 units subcu q. 12, Flagyl 500 mg IV q. 8 hours, morphine sulfate 2 mg IV q. 4 hours p.r.n. moderate pain, Mycostatin applied to his affected area topically daily, Zofran 4 mg IV q. 8 hours p.r.n. nausea and vomiting. Propofol drip was given at 10 mcg per kilogram per minute and Kenalog one application topically daily. ALLERGIES: No known drug allergies. DIET: Well built actually obese gentleman, acute weight loss or gain history is unknown. SOCIAL HISTORY: Lives in the community. He has a tobacco use history, alcohol, illicit drug use or abuse history unknown. FAMILY HISTORY: Otherwise unknown. REVIEW OF SYSTEMS: Difficult to obtain secondary to the patient's medical and mental condition. Since he has been here, no gross hematochezia or melena, no gross hematuria, no bloody tracheal secretions. No witnessed seizures. He does nod his head yes to pain. Review of systems otherwise unobtainable or as in the body of the history above. PHYSICAL EXAMINATION: VITAL SIGNS: At presentation in the emergency room, temperature was 101.2 degrees Fahrenheit, pulse of 102, respiratory rate of 18, blood pressure 121/85, O2 sats were 95%, inspired oxygen concentration was not recorded. At the time I saw him, O2 sats were 98% that was on 40% FIO2 on the assist control mode of ventilator, tidal volume 550, rate of 25 and PEEP of 8. GENERAL: An elderly looking obese male. Normocephalic, atraumatic. On the mechanical ventilator without significant patient-ventilator dyssynchrony. HEAD, EYES, EARS, NOSE AND THROAT: Anicteric. No conjunctival erythema. Oropharynx was moist. Endotracheal tube was taped around 23 cm at the lips. NECK: No gross jugular venous distention or thyromegaly. Grossly, there were no palpable lymph nodes in the supraclavicular, submandibular lymph node chains. Of note, he had macroglossia. LUNGS: Auscultation of both lungs jama unremarkable. Lungs were clear bilaterally with good bilateral air movement. HEART: Sounds 1 and 2 were heard. There were regular rate and rhythm at the time of my evaluation without overt rubs or murmurs. ABDOMEN: Soft, full, protuberant. Bowel sounds are positive, but hypoactive. Tender around the abdomen in surgical site. No palpable hepatosplenomegaly. EXTREMITIES: Without overt digital clubbing, no cyanosis, no pedal edema. Pedal pulses were 2+ bilaterally. NEUROLOGIC: Pupils were equal, round, about 3 mm, reactive to light. Extraocular muscle movements were intact. He moves all 4 extremities spontaneously. SKIN: Normal turgor without overt cellulitis or rash in the areas I examined. He did have the postsurgical wound. Please see the wound care nurses' notes for full description of his skin. PSYCHIATRIC: Mood and affect could not be adequately assessed. He was sedated, but he did appear somewhat anxious when not in that he was in pain. LABORATORY DATA: For my review are as follows: Admission labs, white count 6200, hemoglobin 11.2, hematocrit 35.0, platelet count was 221. No significant band forms on the manual differential. INR was 1.07. Serum sodium was 142, potassium 4.7, chloride 100, bicarbonate 23, BUN 58, creatinine 13.2, glucose was 113. Lactic acid level was 3.6, total bilirubin 1.3, otherwise liver function tests essentially within normal limits. Ammonia within normal limits. Urinalysis negative for nitrites and leukocyte esterase and essentially bland. Dialysate fluid, I believe the cultures are pending. Hepatitis screen is nonreactive. His lactic acid levels last checked was 2.30 yesterday. Today, his serum potassium is 5.6. His platelet count is 124, it was 221 on presentation. Two sets of blood cultures are no growth to date, dialysate fluid, no growth to date. He had CT of the abdomen and pelvis at presentation, I have reviewed the radiologist's interpretation, it showed prominent small bowel dilatation, worse than the prior study and moderate ascites and suggestion of an inflammatory process such as enterocolitis. Chest x-ray today shows endotracheal tube tip riding a little bit high, probably around 7-8 cm above the katherine. It is rotated to the right. No overt pulmonary edema, perhaps borderline cardiomegaly. ASSESSMENT: 1. Acute hypoxemic respiratory failure, on mechanical ventilatory support. 2. Sepsis, presumably secondary to peritonitis. 3. Peritonitis, presumably secondary to acute small bowel obstruction and tissue necrosis. 4. Acute small-bowel obstruction with tissue necrosis. 5. End-stage renal disease, on dialysis. 6. History of hypertension. 7. Crohn's disease. 8. Gastroesophageal reflux disease. 9. Hypertension. 10. Heart failure with reduced ejection fraction. 11. Hyperkalemia. 12. Anemia that is normocytic. 13. Lactic acidosis. 14. Oropharyngeal dysphagia. PLAN: We will keep him on full mechanical ventilatory support. Adjustments were made to his ventilator settings yesterday and the most recent arterial blood gas today shows a pH of 7.44 ____ down to 28, pO2 was 104 that was on 50%. We will reduce the set respiratory rate at this point. Bronchodilators, routine pulmonary toilet will be per the respiratory therapist. Ventilator-associated pneumonia bundle has been introduced. Oxygen will be weaned to keep sats greater than or equal to about 90%. Aspiration precautions included, he will be continued on current broad-spectrum antibiotic therapy. I will defer to infectious disease if consulted. We will trend procalcitonin and follow clinically his white count as well to aid clinical decision making. I am going to get consent for Vascath to be placed in case there is need for dialysis, which has been suggested yesterday in my discussions with the machine buffer. I will be repeating his lactic acid level. Vasopressor is started, will be titrated to keep mean arterial pressures greater than or equal to about 65 mmHg. We will follow his electrolytes and correct as necessary. Chronic disease medications will be introduced per the attending physician. Ultimately enteral nutrition will be the feeding modality of choice once he is cleared by the surgical team. Otherwise, consideration will be given for total parenteral nutrition. He is appropriately on DVT prophylaxis. I will keep a close eye on his platelets. I will be putting him on Pepcid for GI prophylaxis now. Flu and pneumonia vaccination will be addressed per protocol. Thank you very much for the consult. We will follow along and make further recommendations as picture progresses/becomes clearer. He is critically ill on life-sustaining interventions including mechanical ventilatory support at high risk of from cardiopulmonary and gastrointestinal system decompensation. At this time, I have spent about 35-40 minutes of critical care time without overlap and excluding any procedure time that may be necessary. TID: [id number] RECEIPT: [id number] RACIEL/STU/SCOTT STEPHENS
[2020-12-25] MEDS: metroNIDAZOLE/NS 500 MG/100 ML 500 MG/100 ML BAG IV SCH ×3 (04:45→22:56)
--- NOTE | 2020-12-25 05:20 | XRay Report ---
CHEST 1 VIEW INDICATION / CLINICAL INFORMATION: follow up respiratory failure. COMPARISON: Chest radiograph one day prior FINDINGS: SUPPORT DEVICES: Stable position of endotracheal tube, enteric tube, and right IJ central venous cath eter. HEART / MEDIASTINUM: No significant abnormality. LUNGS / PLEURA: No significant pulmonary or pleural abnormality. No pneumothorax. ADDITIONAL FINDINGS: No significant additional findings. IMPRESSION: 1. Stable position of lines and tubes. No acute abnormality identified. Signer Name: Olivia Sharma MD Signed: 12/25/2020 5:16 AM Workstation Name: [id number]
[2020-12-25] MEDS: fentaNYL DRIP Premix 2,000 MCG/100 ML BAG IV SCH ×4 (05:48→22:00)
[2020-12-25 06:13] LABS: Calcium 7.7 mg/dL (8.4-10.2)
[2020-12-25 06:21] LABS: Hematocrit 25.7 % (35.5-45.6); Hemoglobin 8.6 gm/dl (11.8-15.2); Mean Corpuscular HGB Conc 34 % (32-34); Mean Corpuscular Volume 89 fl (84-94); Platelet Count 113 K/mm3 (140-440); Red Cell Distribution Width 16.7 % (13.2-15.2)
--- NOTE | 2020-12-25 10:17 | Progress Note ---
Assessment and Plan Assessment: - ESRD on peritoneal dialysis. He has been on peritoneal dialysis for the past 2 years. He denies any history of peritonitis. - Abdominal pain. CT scan without organ perforation. Need to rule out peritonitis. - small bowel obstruction s/p exp - Hypertension - Hyperkalemia - Anemia of ESRD - Hyperglycemia Plan: - continue IV empiric abx - s/p ex lap, stop PD, will likely not be able to continue pd with adhesion and sbo s/p resection -uf as tolerated with HD -continue hd in am, needs outpatient hd placement - stopped binders and sensipar - strict i/os, uf as tolerated -keep MAP >65, vasopressors prn -add albumin today - monitor electrolytes daily Subjective Date of service: 12/25/20 Principal diagnosis: hyperkalemia, sbo, esrd Interval history: resting in bed event noted Objective - Exam Narrative Exam: - General Limitations: Physical Limitation General appearance: alert, in no apparent distress - Head Head exam: Present: atraumatic, normocephalic - Eye Eye exam: Present: normal appearance, EOMI - ENT ENT exam: Present: mucous membranes moist - Neck Neck exam: Present: normal inspection - Respiratory Respiratory exam: Present: normal lung sounds bilaterally. Absent: respiratory distress - Cardiovascular Cardiovascular Exam: Present: normal rhythm, tachycardia - GI/Abdominal GI/Abdominal exam: Present: soft, distended (slightly), tenderness (periumbilical ) - Extremities Exam Extremities exam: Present: normal inspection - Neurological Exam Neurological exam: Present: alert, oriented X3 - Psychiatric Psychiatric exam: Present: normal affect, normal mood - Skin Skin exam: Present: warm, dry, intact, normal color - Vital Signs Vital signs: Vital Signs - 12hr 12/24/20 12/24/20 12/24/20 22:30 22:40 22:50 Temperature Pulse Rate 107 H 110 H 105 H Pulse Rate [ From Monitor] Respiratory 25 H 25 H 25 H Rate Blood Pressure 93/60 91/61 95/61 O2 Sat by Pulse 96 98 97 Oximetry 12/24/20 12/24/20 12/24/20 23:00 23:10 23:20 Temperature Pulse Rate 109 H 113 H 115 H Pulse Rate [ From Monitor] Respiratory 25 H 25 H 25 H Rate Blood Pressure 103/64 95/61 96/60 O2 Sat by Pulse 98 98 97 Oximetry 12/24/20 12/24/20 12/24/20 23:30 23:40 23:43 Temperature Pulse Rate 112 H 109 H 116 H Pulse Rate [ From Monitor] Respiratory 25 H 25 H Rate Blood Pressure 94/59 94/59 99/60 O2 Sat by Pulse 98 98 97 Oximetry 12/24/20 12/25/20 12/25/20 23:50 00:00 00:10 Temperature 103.3 F H Pulse Rate 111 H 113 H 113 H Pulse Rate [ 116 H From Monitor] Respiratory 23 22 19 Rate Blood Pressure 99/60 84/51 80/52 O2 Sat by Pulse 99 98 98 Oximetry 12/25/20 12/25/20 12/25/20 00:20 00:30 00:40 Temperature Pulse Rate 111 H 116 H 109 H Pulse Rate [ From Monitor] Respiratory 18 37 H 36 H Rate Blood Pressure 82/53 85/61 85/61 O2 Sat by Pulse 98 97 97 Oximetry 12/25/20 12/25/20 12/25/20 00:50 01:00 01:10 Temperature Pulse Rate 109 H 102 H 103 H Pulse Rate [ From Monitor] Respiratory 34 H 40 H 38 H Rate Blood Pressure 89/54 91/61 91/61 O2 Sat by Pulse 98 97 98 Oximetry 12/25/20 12/25/20 12/25/20 01:20 01:30 01:40 Temperature Pulse Rate 103 H 98 H 110 H Pulse Rate [ From Monitor] Respiratory 33 H 44 H 35 H Rate Blood Pressure 95/65 105/65 105/65 O2 Sat by Pulse 98 99 99 Oximetry 12/25/20 12/25/20 12/25/20 01:50 02:00 02:10 Temperature Pulse Rate 112 H 109 H 109 H Pulse Rate [ From Monitor] Respiratory 40 H 35 H 43 H Rate Blood Pressure 114/72 98/56 98/56 O2 Sat by Pulse 99 98 98 Oximetry 12/25/20 12/25/20 12/25/20 02:20 02:30 02:40 Temperature Pulse Rate 105 H 105 H 106 H Pulse Rate [ From Monitor] Respiratory 56 H 34 H 46 H Rate Blood Pressure 87/57 105/67 105/67 O2 Sat by Pulse 98 98 99 Oximetry 12/25/20 12/25/20 12/25/20 02:50 03:00 03:10 Temperature Pulse Rate 103 H 97 H 106 H Pulse Rate [ From Monitor] Respiratory 39 H 28 H 27 H Rate Blood Pressure 90/53 92/57 92/57 O2 Sat by Pulse 99 99 99 Oximetry 12/25/20 12/25/20 12/25/20 03:20 03:30 03:40 Temperature Pulse Rate 105 H 100 H 100 H Pulse Rate [ From Monitor] Respiratory 30 H 17 22 Rate Blood Pressure 99/59 93/58 93/58 O2 Sat by Pulse 98 98 99 Oximetry 12/25/20 12/25/20 12/25/20 03:50 04:00 04:09 Temperature Pulse Rate 103 H 102 H 102 H Pulse Rate [ 102 H From Monitor] Respiratory 23 25 H Rate Blood Pressure 93/67 93/56 93/56 O2 Sat by Pulse 99 99 98 Oximetry 12/25/20 12/25/20 12/25/20 04:10 04:20 04:30 Temperature Pulse Rate 105 H 102 H 102 H Pulse Rate [ From Monitor] Respiratory 25 H 20 20 Rate Blood Pressure 93/56 102/66 100/61 O2 Sat by Pulse 98 99 99 Oximetry 12/25/20 12/25/20 12/25/20 04:40 04:50 05:00 Temperature Pulse Rate 104 H 105 H 101 H Pulse Rate [ From Monitor] Respiratory 20 20 20 Rate Blood Pressure 100/61 87/53 95/59 O2 Sat by Pulse 99 99 99 Oximetry 12/25/20 12/25/20 12/25/20 05:10 05:20 05:30 Temperature Pulse Rate 102 H 97 H 97 H Pulse Rate [ From Monitor] Respiratory 20 20 20 Rate Blood Pressure 95/59 91/60 99/64 O2 Sat by Pulse 100 100 100 Oximetry 12/25/20 12/25/20 12/25/20 05:40 05:50 06:00 Temperature Pulse Rate 96 H 101 H 102 H Pulse Rate [ From Monitor] Respiratory 20 16 20 Rate Blood Pressure 99/64 94/61 97/58 O2 Sat by Pulse 100 98 99 Oximetry 12/25/20 12/25/20 12/25/20 06:10 06:20 06:30 Temperature Pulse Rate 101 H 99 H 96 H Pulse Rate [ From Monitor] Respiratory 20 20 20 Rate Blood Pressure 97/58 91/55 97/60 O2 Sat by Pulse 99 100 100 Oximetry 12/25/20 12/25/20 12/25/20 06:40 06:50 07:00 Temperature Pulse Rate 96 H 96 H 95 H Pulse Rate [ From Monitor] Respiratory 20 20 20 Rate Blood Pressure 97/60 97/60 103/66 O2 Sat by Pulse 100 100 100 Oximetry 12/25/20 12/25/20 12/25/20 07:10 07:20 07:30 Temperature Pulse Rate 94 H 94 H 98 H Pulse Rate [ From Monitor] Respiratory 20 20 20 Rate Blood Pressure 103/66 105/64 109/71 O2 Sat by Pulse 100 100 87 Oximetry 12/25/20 12/25/20 12/25/20 07:40 07:50 08:00 Temperature Pulse Rate 94 H 91 H 96 H Pulse Rate [ 104 H From Monitor] Respiratory 20 20 20 Rate Blood Pressure 109/71 102/64 115/72 O2 Sat by Pulse 99 99 99 Oximetry 12/25/20 12/25/20 12/25/20 08:10 08:20 08:30 Temperature Pulse Rate 97 H 95 H 98 H Pulse Rate [ From Monitor] Respiratory 20 20 20 Rate Blood Pressure 115/72 115/72 115/72 O2 Sat by Pulse 99 99 99 Oximetry 12/25/20 12/25/20 12/25/20 08:35 08:40 08:50 Temperature Pulse Rate 96 H 95 H 95 H Pulse Rate [ From Monitor] Respiratory 20 20 Rate Blood Pressure 115/72 115/72 115/72 O2 Sat by Pulse 99 99 98 Oximetry 12/25/20 12/25/20 12/25/20 09:00 09:10 09:20 Temperature Pulse Rate 96 H 95 H 97 H Pulse Rate [ From Monitor] Respiratory 20 20 20 Rate Blood Pressure 97/62 97/62 97/62 O2 Sat by Pulse 100 100 99 Oximetry 12/25/20 12/25/20 12/25/20 09:30 09:40 09:50 Temperature Pulse Rate 97 H 94 H 94 H Pulse Rate [ From Monitor] Respiratory 20 20 20 Rate Blood Pressure 97/62 97/62 97/62 O2 Sat by Pulse 98 99 98 Oximetry 12/25/20 10:00 Temperature Pulse Rate 90 Pulse Rate [ From Monitor] Respiratory 20 Rate Blood Pressure 106/63 O2 Sat by Pulse 98 Oximetry - Lab 12/25/20 04:00 12/25/20 04:00 Most recent lab results ABG pH 7.544 (7.320-7.450) H 12/25/20 03:33 ABG pCO2 49.7 mm Hg 12/23/20 20:35 ABG pO2 50.1 mm Hg (80.0-90.0) L 12/23/20 20:35 ABG HCO3 21.4 mmol/L (20.0-26.0) 12/23/20 20:35 ABG O2 Saturation 94.0 (0-100) 12/25/20 03:33 Calcium 7.7 mg/dL (8.4-10.2) L 12/25/20 04:00 Phosphorus 5.00 mg/dL (2.5-4.5) H 12/25/20 04:00 Magnesium 1.80 mg/dL (1.7-2.3) 12/25/20 04:00 Medications & Allergies - Medications Allergies/Adverse Reactions: Allergies No Known Allergies Allergy (Verified 06/09/20 15:27) Home Medications: Home Medications Medication Instructions Recorded Confirmed Last Taken Type Albuterol Mdi (or & Nicu Only) 2 puff IH QID PRN #1 inhalation 04/01/17 11/01/20 10/31/20 09:00 Rx [ProAir HFA Inhaler] Calcium Acetate 667 mg PO DAILY 04/20/20 11/01/20 10/31/20 09:00 History Centrum Men's Tablet 1 tab PO DAILY 04/20/20 11/01/20 10/31/20 09:00 History Cinacalcet 30 mg PO DAILY 04/20/20 11/01/20 10/31/20 09:00 History Dialyvite with Zinc Tablet 1 tab PO DAILY 04/20/20 11/01/20 10/31/20 09:00 History Magnesium 250 mg PO BID 04/20/20 11/01/20 10/31/20 17:00 History Triamcinolone 0.1% 1 1000units TRANSDERMA DAILY 04/20/20 11/01/20 10/31/20 09:00 History Vit B12/Folic Acid/B6/Aa No.15 1,000 mg PO DAILY 04/20/20 11/01/20 10/31/20 09:00 History amLODIPine 10 mg PO DAILY 06/09/20 11/01/20 10/31/20 09:00 History AtorvaSTATin 40 mg PO HS 11/01/20 11/01/20 10/31/20 21:00 History Benadryl 25 mg PO HS 11/01/20 11/01/20 10/31/20 21:00 History Diclofenac 1 TRANSDERMA QID 11/01/20 10/31/20 19:00 History Fluticasone Propionate 1 spray INTRANASAL DAILY 11/01/20 11/01/20 10/31/20 09:00 History Vitamin D3 2,000 units 11/01/20 10/31/20 09:00 History carvediloL 12.5 mg PO DAILY 11/01/20 11/01/20 10/31/20 09:00 History hydrALAZINE 100 mg PO TID 11/01/20 11/01/20 10/31/20 19:00 History Active Medications: Generic Name Dose Route Start Last Admin Trade Name Freq PRN Reason Stop Dose Admin Albuterol 2.5 mg 12/22/20 19:42 Albuterol 2.5 Mg/3 Ml Nebu IH Q4HRT PRN Shortness Of Breath Famotidine 10 mg 12/24/20 13:00 12/25/20 03:26 Famotidine 20 Mg/2 Ml Inj IV Not Given BID THOMAS Fentanyl 50 mcg 12/24/20 11:35 Fentanyl 100 Mcg/2 Ml Inj IV Q10MIN PRN ANALGESIA Heparin Sodium (Porcine) 5,000 unit 12/24/20 10:00 12/25/20 03:24 Heparin 5,000 Unit/1 Ml Vial SUB-Q Not Given Q12HR THOMAS Hydrophilic Ointment 1 applic 12/24/20 12:03 Lip Therapy Vaseline TP Q2H PRN Dry Lips Metronidazole 500 mg in 100 mls @ 100 mls/hr 12/22/20 20:00 12/25/20 04:45 Flagyl 500 Mg/100 Ml IV 100 mls/hr Q8H THOMAS Administration Protocol Cefepime HCl 2 gm in 100 mls @ 200 mls/hr 12/23/20 16:00 12/24/20 16:06 Cefepime/Ns 2 Gm/100 Ml IV 200 mls/hr Q24H THOMAS Administration Protocol Sodium Chloride 100 mls @ 999 mls/hr 12/23/20 11:03 Nacl 0.9% IV RYLAND PRN Hypotension Propofol 1,000 mg in 100 mls @ 5.484 mls/hr 12/23/20 19:00 12/24/20 18:54 Diprivan 10 Mg/Ml IV 0 mcg/kg/min TITR THOMAS 0 mls/hr Titration Protocol 10 MCG/KG/MIN Fentanyl Citrate 2,000 mcg in 100 mls @ 4.57 mls/hr 12/24/20 12:00 12/25/20 07:50 Fentanyl Drip Premix IV 0.88 mcg/kg/hr TITR THOMAS 4 mls/hr Titration Protocol 1 MCG/KG/HR Morphine Sulfate 2 mg 12/23/20 10:00 12/24/20 02:19 Morphine 2 Mg/1 Ml Inj IV 2 mg Q4H PRN Administration Pain, Moderate (4-6) Multi-Ingred Cream/Lotion/Oil/Oint 1 applic 12/24/20 12:03 Mineral Oil/Petrolatum, White Ophth Oint 3.5 Gm OU Q4H PRN Dry Eye(s) Nystatin 1 applic 12/23/20 11:00 12/25/20 03:25 Nystatin Cream 15 Gm Tube TP Not Given DAILY THOMAS Ondansetron HCl 4 mg 12/22/20 19:42 Ondansetron 4 Mg/2 Ml Inj IV Q8H PRN Nausea And Vomiting Sodium Chloride 10 ml 12/22/20 22:00 12/25/20 03:25 Sodium Chloride 0.9% 10 Ml Flush Syringe IV Not Given BID THOMAS Sodium Chloride 10 ml 12/22/20 19:42 Sodium Chloride 0.9% 10 Ml Flush Syringe IV PRN PRN LINE FLUSH Triamcinolone Acetonide 1 applic 12/23/20 11:00 12/25/20 03:25 Triamcinolone 0.1% Cream 15 Gm TP Not Given DAILY THOMAS
--- NOTE | 2020-12-25 10:41 | Progress Note ---
Assessment and Plan Cultures: 12/22/2020 blood culture: Gram-positive cocci in pairs 1 out of 4 12/22/2020 PD fluid culture: Gram stain no organism no WBC. PD fluid showed 208 WBC, 82% PMNs 12/24/2020 blood cultures pending A/P: 60-year-old male with ESRD on PD, Crohn's disease, CHF, gastroesophageal reflux disease was admitted to the hospital with complaints of abdominal pain and fever: #Severe sepsis: Now high fever of 103.3, noted neutropenia and hypotension overnight. Secondary to small bowel obstruction/necrotic bowel with concern for PD associated peritonitis. Procalcitonin > 200 (significantly elevated likely secondary to kidney disease) #Small bowel obstruction/necrotic bowel: with concern for PD associated peritonitis: Nephrology and general surgery following. Status post exploratory laparotomy with extensive lysis of primary anastomosis necrotic segment of small bowel. #Gram-positive cocci bacteremia: Renal versus contaminant. Source GI? #Postoperative ileus: On PPI, NG tube decompression, surgery on board #ESRD on PD: Renally dose antibiotics. Pending conversion to HD. #Elevated LFTs: Monitor.-Secondary to sepsis. #Respiratory failure: intubated Recs: -Continue renally dosed IV cefepime and vancomycin for now -Add metronidazole 500 mg IV every 8 hours and fluconazole 200 mg IV once a day for now given worsening sepsis, necrotic bowel resection and severe abdominal distention on exam -To start hemodialysis -Follow-up repeat blood cultures -Close monitoring, consider abdominal CT if worsening sepsis, evaluation for abscess, leak Dr Eduin tran tomorrow will follow Millicent Weber MD [facility] ([facility]) Office [phone] Subjective Date of service: 12/25/20 Principal diagnosis: hyperkalemia, sbo, esrd Interval history: Remains intubated, FiO2 35, PEEP of 8, noted temperature 103 overnight. On fentanyl drip. Objective - Exam Narrative Exam: General appearance: Sedated, intubated Eyes: anicteric sclerae, moist conjunctivae; no lid-lag; PERRLA HENT: Normocephalic, Atraumatic; normal external ears, nares open, oropharynx limited with endotracheal tube, tongue out with edema Neck: supple, tracheal midline, no JVD Lungs: Coarse breath sounds bilaterally CV: Tachycardic Abdomen: Marked distention, firm, midline surgical wound, with dressing, PD catheter present decreased bowel sounds Extremities: no edema, no cyanosis Skin: No rash. Psych: Sedated Neuro: Sedated Jeffery catheter in place - Constitutional Vitals: Vital Signs Temp Pulse Resp BP Pulse Ox 103.3 F H 90 20 106/63 98 12/25/20 00:00 12/25/20 10:00 12/25/20 10:00 12/25/20 10:00 12/25/20 10:00 Temperature -Last 24 Hours Temperature 103.3 F Temperature 100.2 F Temperature 97.5 F Temperature 97.5 F Temperature 98.4 F Temperature 98.4 F - Labs CBC & Chem 7: 12/25/20 04:00 12/25/20 04:00 Labs: Abnormal lab results 12/23/20 12/24/20 12/24/20 Range/Units 11:40 10:29 10:29 WBC (4.5-11.0) K/mm3 RBC 3.49 L (3.65-5.03) M/mm3 Hgb 10.5 L (11.8-15.2) gm/dl Hct 31.2 L (35.5-45.6) % RDW 17.5 H (13.2-15.2) % Plt Count 124 L (140-440) K/mm3 Lymph % (Auto) 3.7 L (13.4-35.0) % Robeson % (Auto) 9.8 H (0.0-7.3) % Lymph # (Auto) 0.2 L (1.2-5.4) K/mm3 Seg Neutrophils % 85.9 H (40.0-70.0) % ABG pH (7.320-7.450) POC ABG pCO2 (32.0-48.0) mmHg POC ABG pO2 (83-108) mmHg ABG Hemoglobin (12.0-17.5) ABG Oxyhemoglobin (94-98) ABG Sodium (136.0-145.0) mmol/L ABG Glucose (65-95) mg/dL Potassium 5.6 H (3.6-5.0) mmol/L Carbon Dioxide 19 L (22-30) mmol/L BUN 99 H (9-20) mg/dL Creatinine 16.9 H (0.8-1.3) mg/dL Glucose 52 L (75-100) mg/dL Calcium 7.6 L (8.4-10.2) mg/dL Phosphorus (2.5-4.5) mg/dL Total Bilirubin 3.50 H (0.1-1.2) mg/dL AST 67 H (5-40) units/L ALT 71 H (7-56) units/L Total Protein 3.5 L D (6.3-8.2) g/dL Albumin 2.1 L (3.9-5) g/dL Arterial Blood Glucose (65-95) mg/dL Arterial Blood Ionized Calcium (4.6-5.3) mg/dL Crossmatch See Detail 12/25/20 12/25/20 12/25/20 Range/Units 03:33 04:00 04:00 WBC 3.8 L (4.5-11.0) K/mm3 RBC 2.90 L (3.65-5.03) M/mm3 Hgb 8.6 L (11.8-15.2) gm/dl Hct 25.7 L (35.5-45.6) % RDW 16.7 H (13.2-15.2) % Plt Count 113 L (140-440) K/mm3 Lymph % (Auto) (13.4-35.0) % Robeson % (Auto) (0.0-7.3) % Lymph # (Auto) (1.2-5.4) K/mm3 Seg Neutrophils % (40.0-70.0) % ABG pH 7.544 H (7.320-7.450) POC ABG pCO2 28.2 L (32.0-48.0) mmHg POC ABG pO2 62.8 L (83-108) mmHg ABG Hemoglobin 9.3 L (12.0-17.5) ABG Oxyhemoglobin 93.0 L (94-98) ABG Sodium 130.3 L (136.0-145.0) mmol/L ABG Glucose 97 H (65-95) mg/dL Potassium (3.6-5.0) mmol/L Carbon Dioxide (22-30) mmol/L BUN 62 H (9-20) mg/dL Creatinine 11.4 H (0.8-1.3) mg/dL Glucose (75-100) mg/dL Calcium 7.7 L (8.4-10.2) mg/dL Phosphorus 5.00 H (2.5-4.5) mg/dL Total Bilirubin (0.1-1.2) mg/dL AST (5-40) units/L ALT (7-56) units/L Total Protein (6.3-8.2) g/dL Albumin (3.9-5) g/dL Arterial Blood Glucose 97 H (65-95) mg/dL Arterial Blood Ionized Calcium 3.9 L (4.6-5.3) mg/dL Crossmatch
[2020-12-25] MEDS: MORPHINE 2 MG/1 ML INJ IV PRN ×2 (10:42→18:05)
[2020-12-25] MEDS ORDERED: FLUCONAZOLE 200 MG 200 MG/100 ML BAG IV ONE (11:00)
[2020-12-25] MEDS: ALBUMIN HUMAN 25% (25 GM/100 ML) INJ IV SCH ×2 (11:42→22:05)
--- NOTE | 2020-12-25 12:57 | Progress Note ---
Assessment and Plan Assessment and plan: #Acute hypoxic respiratory failure Remains intubated after procedure. Vent management Critical care statement The high probability of a clinically significant, sudden or life threatening deterioration of the [pulmonary, cardiac, neuro, renal] system(s) required my full and direct attention, intervention and personal management. The aggregate critical care time was [65] minutes. This time is in addition to time spent performing reported procedures but includes the following: [x] Data Review and interpretation [x] Patient assessment and monitoring of vital signs [x] Documentation [x] Medication orders and management #Sepsis secondary to secondary bacterial peritonitis -POA IV antibiotics ID on board #Small bowel obstruction with peritonitis Status post exploratory laparotomy Surgery on board Maintain n.p.o. for now #Congestive heart failure Continue medications #ESRD Peritoneal dialysis on hold for now. Catheter placement-hemodialysis today per nephrology Nephrology on board #Congestive heart failure Stable #Nicotine abuse Smoking cessation counseling provided #DVT prophylaxis-Heparin for DVT prophylaxis History Interval history: 60 YO Male with ESRD on PD, GERD, Crohn's Disease, Nicotine Dependence, HTN, Systolic CHF(EF 35%) presents to ED for evaluation. Patient reports "my stomach started hurting last night". Patient states that he had experienced abdominal pain which began overnight shortly after eating fast food. Patient states that his pain is 10/10, periumbilical, constant, associated with fever, nausea, as well as multiple episodes of vomiting. Patient reports inability to undergo peritoneal dialysis. EMS was notified and upon arrival the patient was found to be in distress and subsequently transported to [facility] for further care and evaluation of the aforementioned symptoms. Patient seen and evaluated in the emergency department. All lab and imaging studies reviewed. Patient underwent CT scan of the abdomen and pelvis which revealed evidence of a partial small bowel obstruction. Patient found to have symptoms consistent with spontaneous bacterial peritonitis. Patient also found to have end-stage renal disease on peritoneal dialysis. Patient admitted to medical floor and treated with empiric IV antibiotic therapy. General surgery team consulted in ED. Nephrology team consulted in ED. Patient denies fever, chills, chest pain, palpitations, productive cough, skin rash, recent ill contacts, ingestion of food/water from new or different sources, or known exposure to COVID-19. Prior admission on reviewed. All medication listed at time of admission has been reconciled. Advanced care planning conducted in ED. Hospital course 12/23. Patient had temperature 101.2 F, tachycardia and elevated lactic acid on admission. Meet sepsis criteria. Started on IV antibiotics. ID has been consulted. Surgery consulted this a.m.-advised laparoscopy. He remains on NG tube connected to suction. 12/24. Patient was noted to have peritonitis yesterday and patient undergoing exploratory laparotomy. Patient remained intubated after procedure and is in ICU. Now on broad-spectrum antibiotics. ID on board. 12/25. Remains mechanically ventilated and sedated. Temp 103 Fahrenheit. Antibiotics broadened-ID added fluconazole and Flagyl. Blood cultures ordered. Plan to repeat CT abdomen tomorrow if not better. Surgery following. Hospitalist Physical - Physical exam Narrative exam: VITAL SIGNS: Reviewed. GENERAL: Awake HEAD: No signs of head trauma. EYES: Pupils are equal. Extraocular motions intact. MOUTH: Oropharynx is normal. NECK: No adenopathy, no JVD. CHEST: Diminished breath sounds at the bases CARDIAC: normal S1 and S2, without murmurs, gallops, or rubs. ABDOMEN: Tense abdomen, tenderness to palpation more in the right. BS + MUSCULOSKELETAL: Edema NEUROLOGIC EXAM: Alert and oriented x3. No focal neurologic deficits SKIN: No obvious lesions - Constitutional Vitals: Temp Pulse Resp BP Pulse Ox 103.3 F H 103 H 20 100/62 98 12/25/20 00:00 12/25/20 12:00 12/25/20 12:00 12/25/20 12:00 12/25/20 12:00 HEART Score - HEART Score Troponin: Troponin T 0.021 ng/mL (0.00-0.029) 12/22/20 14:38 Results - Labs CBC & Chem 7: 12/25/20 04:00 12/25/20 04:00 Labs: Laboratory Last Values WBC 3.8 K/mm3 (4.5-11.0) L 12/25/20 04:00 RBC 2.90 M/mm3 (3.65-5.03) L 12/25/20 04:00 Hgb 8.6 gm/dl (11.8-15.2) L 12/25/20 04:00 Hct 25.7 % (35.5-45.6) L 12/25/20 04:00 MCV 89 fl (84-94) 12/25/20 04:00 MCH 30 pg (28-32) 12/25/20 04:00 MCHC 34 % (32-34) 12/25/20 04:00 RDW 16.7 % (13.2-15.2) H 12/25/20 04:00 Plt Count 113 K/mm3 (140-440) L 12/25/20 04:00 Lymph % (Auto) 3.7 % (13.4-35.0) L 12/24/20 10:29 Cloud % (Auto) 9.8 % (0.0-7.3) H 12/24/20 10:29 Eos % (Auto) 0.3 % (0.0-4.3) 12/24/20 10:29 Baso % (Auto) 0.3 % (0.0-1.8) 12/24/20 10:29 Lymph # (Auto) 0.2 K/mm3 (1.2-5.4) L 12/24/20 10:29 Cloud # (Auto) 0.6 K/mm3 (0.0-0.8) 12/24/20 10:29 Eos # (Auto) 0.0 K/mm3 (0.0-0.4) 12/24/20 10:29 Baso # (Auto) 0.0 K/mm3 (0.0-0.1) 12/24/20 10:29 Add Manual Diff Complete 12/23/20 05:22 Total Counted 100 12/23/20 05:22 Seg Neutrophils % 85.9 % (40.0-70.0) H 12/24/20 10:29 Seg Neuts % (Manual) 93.0 % (40.0-70.0) H 12/23/20 05:22 Band Neutrophils % 4.0 % 12/23/20 05:22 Lymphocytes % (Manual) 1.0 % (13.4-35.0) L 12/23/20 05:22 Monocytes % (Manual) 2.0 % (0.0-7.3) 12/23/20 05:22 Nucleated RBC % Not Reportable 12/23/20 05:22 Seg Neutrophils # 5.0 K/mm3 (1.8-7.7) 12/24/20 10:29 Seg Neutrophils # Man 11.3 K/mm3 (1.8-7.7) H 12/23/20 05:22 Band Neutrophils # 0.5 K/mm3 12/23/20 05:22 Lymphocytes # (Manual) 0.1 K/mm3 (1.2-5.4) L 12/23/20 05:22 Abs React Lymphs (Man) 0.0 K/mm3 12/23/20 05:22 Monocytes # (Manual) 0.2 K/mm3 (0.0-0.8) 12/23/20 05:22 Eosinophils # (Manual) 0.0 K/mm3 (0.0-0.4) 12/23/20 05:22 Basophils # (Manual) 0.0 K/mm3 (0.0-0.1) 12/23/20 05:22 Metamyelocytes # 0.0 K/mm3 12/23/20 05:22 Myelocytes # 0.0 K/mm3 12/23/20 05:22 Promyelocytes # 0.0 K/mm3 12/23/20 05:22 Blast Cells # 0.0 K/mm3 12/23/20 05:22 WBC Morphology Not Reportable 12/23/20 05:22 Hypersegmented Neuts Not Reportable 12/23/20 05:22 Hyposegmented Neuts Not Reportable 12/23/20 05:22 Hypogranular Neuts Not Reportable 12/23/20 05:22 Smudge Cells Not Reportable 12/23/20 05:22 Toxic Granulation Not Reportable 12/23/20 05:22 Toxic Vacuolation Not Reportable 12/23/20 05:22 Dohle Bodies Not Reportable 12/23/20 05:22 Pelger-Huet Anomaly Not Reportable 12/23/20 05:22 Lamar Rods Not Reportable 12/23/20 05:22 Platelet Estimate Consistent w auto 12/23/20 05:22 Clumped Platelets Not Reportable 12/23/20 05:22 Plt Clumps, EDTA Not Reportable 12/23/20 05:22 Large Platelets Not Reportable 12/23/20 05:22 Giant Platelets Not Reportable 12/23/20 05:22 Platelet Satelliting Not Reportable 12/23/20 05:22 Plt Morphology Comment Not Reportable 12/23/20 05:22 RBC Morphology Not Reportable 12/23/20 05:22 Dimorphic RBCs Not Reportable 12/23/20 05:22 Polychromasia Not Reportable 12/23/20 05:22 Hypochromasia Not Reportable 12/23/20 05:22 Poikilocytosis Not Reportable 12/23/20 05:22 Anisocytosis 1+ 12/23/20 05:22 Microcytosis Not Reportable 12/23/20 05:22 Macrocytosis Not Reportable 12/23/20 05:22 Spherocytes Not Reportable 12/23/20 05:22 Pappenheimer Bodies Not Reportable 12/23/20 05:22 Sickle Cells Not Reportable 12/23/20 05:22 Target Cells Not Reportable 12/23/20 05:22 Tear Drop Cells Not Reportable 12/23/20 05:22 Ovalocytes Not Reportable 12/23/20 05:22 Helmet Cells Not Reportable 12/23/20 05:22 [place] Bodies Not Reportable 12/23/20 05:22 [place] Rings Not Reportable 12/23/20 05:22 [place] Cells Not Reportable 12/23/20 05:22 Bite Cells Not Reportable 12/23/20 05:22 Crenated Cell Not Reportable 12/23/20 05:22 Elliptocytes Not Reportable 12/23/20 05:22 Acanthocytes (Spur) Not Reportable 12/23/20 05:22 Rouleaux Not Reportable 12/23/20 05:22 Hemoglobin C Crystals Not Reportable 12/23/20 05:22 Schistocytes Not Reportable 12/23/20 05:22 Malaria parasites Not Reportable 12/23/20 05:22 Lucas Bodies Not Reportable 12/23/20 05:22 Hem Pathologist Commnt No 12/23/20 05:22 PT 13.8 Sec. (12.2-14.9) 12/22/20 14:38 INR 1.07 (0.87-1.13) 12/22/20 14:38 APTT 25.1 Sec. (24.2-36.6) 12/22/20 14:38 ABG pH 7.544 (7.320-7.450) H 12/25/20 03:33 POC ABG pCO2 28.2 mmHg (32.0-48.0) L 12/25/20 03:33 ABG pCO2 49.7 mm Hg 12/23/20 20:35 POC ABG pO2 62.8 mmHg (83-108) L 12/25/20 03:33 ABG pO2 50.1 mm Hg (80.0-90.0) L 12/23/20 20:35 POC ABG HCO3 23.8 12/25/20 03:33 ABG HCO3 21.4 mmol/L (20.0-26.0) 12/23/20 20:35 ABG O2 Saturation 94.0 (0-100) 12/25/20 03:33 ABG O2 Content 13.3 (0.0-44) 12/23/20 20:35 POC ABG Base Excess 1.8 12/25/20 03:33 ABG Base Excess -5.9 mmol/L (-2.0-3.0) L 12/23/20 20:35 ABG Hemoglobin 9.3 (12.0-17.5) L 12/25/20 03:33 ABG Oxyhemoglobin 93.0 (94-98) L 12/25/20 03:33 ABG Carboxyhemoglobin 2.4 % (0.0-5.0) 12/23/20 20:35 ABG Methemoglobin 0.3 (0.0-1.5) 12/25/20 03:33 ABG Sodium 130.3 mmol/L (136.0-145.0) L 12/25/20 03:33 ABG Potassium 4.3 mmol/L (3.40-4.50) 12/25/20 03:33 ABG Chloride 104.0 mmol/L (98-107) 12/25/20 03:33 ABG Glucose 97 mg/dL (65-95) H 12/25/20 03:33 Oxyhemoglobin 78.6 % (95.0-99.0) L 12/23/20 20:35 Carboxyhemoglobin 0.8 (0.5-1.5) 12/25/20 03:33 FiO2 50 % 12/23/20 20:35 FiO2 % 40.0 12/25/20 03:33 Sodium 138 mmol/L (137-145) 12/25/20 04:00 Potassium 4.5 mmol/L (3.6-5.0) 12/25/20 04:00 Chloride 103.4 mmol/L (98-107) 12/25/20 04:00 Carbon Dioxide 26 mmol/L (22-30) D 12/25/20 04:00 Anion Gap 13 mmol/L 12/25/20 04:00 BUN 62 mg/dL (9-20) H 12/25/20 04:00 Creatinine 11.4 mg/dL (0.8-1.3) H 12/25/20 04:00 Estimated GFR 6 ml/min 12/25/20 04:00 BUN/Creatinine Ratio 5 % 12/25/20 04:00 Glucose 95 mg/dL (75-100) 12/25/20 04:00 POC Glucose 95 mg/dL (70-105) 12/23/20 19:07 Lactic Acid 1.40 mmol/L (0.7-2.0) 12/24/20 15:06 Calcium 7.7 mg/dL (8.4-10.2) L 12/25/20 04:00 Phosphorus 5.00 mg/dL (2.5-4.5) H 12/25/20 04:00 Magnesium 1.80 mg/dL (1.7-2.3) 12/25/20 04:00 Total Bilirubin 3.50 mg/dL (0.1-1.2) H 12/24/20 10:29 AST 67 units/L (5-40) H 12/24/20 10:29 ALT 71 units/L (7-56) H 12/24/20 10:29 Alkaline Phosphatase 109 units/L (35-129) 12/24/20 10:29 Ammonia 30.0 umol/L (25-60) 12/22/20 14:38 Troponin T 0.021 ng/mL (0.00-0.029) 12/22/20 14:38 Total Protein 3.5 g/dL (6.3-8.2) L D 12/24/20 10:29 Albumin 2.1 g/dL (3.9-5) L 12/24/20 10:29 Albumin/Globulin Ratio 1.5 % 12/24/20 10:29 Lipase 41 units/L (13-60) 12/22/20 14:38 Procalcitonin > 200.00 ng/mL (<0.15) 12/24/20 15:06 Arterial Blood Glucose 97 mg/dL (65-95) H 12/25/20 03:33 Arterial Blood Ionized Calcium 3.9 mg/dL (4.6-5.3) L 12/25/20 03:33 Urine Color Yellow (Yellow) 12/22/20 18:53 Urine Turbidity Clear (Clear) 12/22/20 18:53 Urine pH 7.0 (5.0-7.0) 12/22/20 18:53 Ur Specific [place] 1.012 (1.003-1.030) 12/22/20 18:53 Urine Protein >500 mg/dL (Negative) 12/22/20 18:53 Urine Glucose (UA) Neg mg/dL (Negative) 12/22/20 18:53 Urine Ketones Neg mg/dL (Negative) 12/22/20 18:53 Urine Blood Neg (Negative) 12/22/20 18:53 Urine Nitrite Neg (Negative) 12/22/20 18:53 Urine Bilirubin Neg (Negative) 12/22/20 18:53 Urine Urobilinogen < 2.0 mg/dL (<2.0) 12/22/20 18:53 Ur Leukocyte Esterase Neg (Negative) 12/22/20 18:53 Urine WBC (Auto) < 1.0 /HPF (0.0-6.0) 12/22/20 18:53 Urine RBC (Auto) 1.0 /HPF (0.0-6.0) 12/22/20 18:53 Fluid Type Dialysate 12/22/20 Unknown Fluid Color Colorless 12/22/20 Unknown Fluid Appearance Cloudy 12/22/20 Unknown Fluid WBC 208 /mm3 12/22/20 Unknown Fluid RBC 45 /mm3 12/22/20 Unknown Fluid Seg Neutrophils 82.0 % 12/22/20 Unknown Fluid Lymphocytes 11.0 % 12/22/20 Unknown Fluid Reactive Lymphs 0 % 12/22/20 Unknown Fluid Monocytes 7.0 % 12/22/20 Unknown Fluid Eosinophils 0 % 12/22/20 Unknown Fluid Basophils 0 % 12/22/20 Unknown Hepatitis A IgM Ab Non-reactive (NonReactive) 12/23/20 11:38 Hep Bs Antigen Non-reactive (Negative) 12/23/20 11:38 Hep B Core IgM Ab Non-reactive (NonReactive) 12/23/20 11:38 Hepatitis C Antibody Non-reactive (NonReactive) 12/23/20 11:38 Blood Type A POSITIVE 12/23/20 11:40 Antibody Screen Negative 12/23/20 11:40 Crossmatch See Detail 12/23/20 11:40 Microbiology: Microbiology 12/22/20 14:38 Peripheral/Venous Blood Culture - Preliminary 12/22/20 14:28 Peripheral/Venous Blood Culture - Preliminary 12/24/20 23:11 Peripheral/Venous Blood Culture - Preliminary Culture in Progress 12/24/20 23:11 Peripheral/Venous Blood Culture - Preliminary Culture in Progress 12/22/20 Unknown Peritioneal Dialysate Peritoneal Dialysate Culture - Preliminary Jeffery/IV: Voiding Method Indwelling Catheter Active Medications - Current Medications Current Medications: Generic Name Dose Route Start Last Admin Trade Name Freq PRN Reason Stop Dose Admin Albumin Human 25 gm 12/25/20 11:00 12/25/20 11:42 Albumin Human 25% (25 Gm/100 Ml) Inj IV 12/27/20 22:01 25 gm Q12HR THOMAS Administration Albuterol 2.5 mg 12/22/20 19:42 Albuterol 2.5 Mg/3 Ml Nebu IH Q4HRT PRN Shortness Of Breath Famotidine 10 mg 12/24/20 13:00 12/25/20 10:27 Famotidine 20 Mg/2 Ml Inj IV 10 mg BID THOMAS Administration Fentanyl 50 mcg 12/24/20 11:35 Fentanyl 100 Mcg/2 Ml Inj IV Q10MIN PRN ANALGESIA Heparin Sodium (Porcine) 5,000 unit 12/24/20 10:00 12/25/20 10:27 Heparin 5,000 Unit/1 Ml Vial SUB-Q 5,000 unit Q12HR THOMAS Administration Hydrophilic Ointment 1 applic 12/24/20 12:03 Lip Therapy Vaseline TP Q2H PRN Dry Lips Sodium Chloride 100 mls @ 999 mls/hr 12/23/20 11:03 Nacl 0.9% IV RYLAND PRN Hypotension Propofol 1,000 mg in 100 mls @ 5.484 mls/hr 12/23/20 19:00 12/24/20 18:54 Diprivan 10 Mg/Ml IV 0 mcg/kg/min TITR THOMAS 0 mls/hr Titration Protocol 10 MCG/KG/MIN Fentanyl Citrate 2,000 mcg in 100 mls @ 4.57 mls/hr 12/24/20 12:00 12/25/20 11:42 Fentanyl Drip Premix IV 0.88 mcg/kg/hr TITR THOMAS 4 mls/hr Administration Protocol 1 MCG/KG/HR Cefepime HCl 2 gm in 100 mls @ 200 mls/hr 12/26/20 16:00 Cefepime/Ns 2 Gm/100 Ml IV Q48H THOMAS Protocol Metronidazole 500 mg in 100 mls @ 100 mls/hr 12/25/20 14:00 Flagyl 500 Mg/100 Ml IV Q8HR THOMAS Protocol Morphine Sulfate 2 mg 12/23/20 10:00 12/25/20 10:42 Morphine 2 Mg/1 Ml Inj IV 2 mg Q4H PRN Administration Pain, Moderate (4-6) Multi-Ingred Cream/Lotion/Oil/Oint 1 applic 12/24/20 12:03 Mineral Oil/Petrolatum, White Ophth Oint 3.5 Gm OU Q4H PRN Dry Eye(s) Nystatin 1 applic 12/23/20 11:00 12/25/20 10:28 Nystatin Cream 15 Gm Tube TP 1 applic DAILY THOMAS Administration Ondansetron HCl 4 mg 12/22/20 19:42 Ondansetron 4 Mg/2 Ml Inj IV Q8H PRN Nausea And Vomiting Sodium Chloride 10 ml 12/22/20 22:00 12/25/20 10:28 Sodium Chloride 0.9% 10 Ml Flush Syringe IV 10 ml BID THOMAS Administration Sodium Chloride 10 ml 12/22/20 19:42 Sodium Chloride 0.9% 10 Ml Flush Syringe IV PRN PRN LINE FLUSH Triamcinolone Acetonide 1 applic 12/23/20 11:00 12/25/20 10:27 Triamcinolone 0.1% Cream 15 Gm TP 1 applic DAILY THOMAS Administration Nutrition/Malnutrition Assess - Dietary Evaluation Nutrition/Malnutrition Findings: Nutrition Notes Start: 12/24/20 12:36 Freq: Status: Active Protocol: Document 12/24/20 12:36 CW (Rec: 12/24/20 12:48 CW [id number]) Nutrition Notes Need for Assessment generated from: MD Order Initial or Follow up Assessment Current Diagnosis CKD (stage V CKD),Hypertension ,Heart Failure Other Pertinent Diagnosis bacterial peritonitis, on PD, SBO, Crohns disease Current Diet NPO Labs/Tests K 5.6 BUN 99 Cr 16.9 BG 52 Pertinent Medications propfol at 5.484 ml/hr (145 kcal) NS 6.5L Kionex Humulin Height 5 ft 7 in Weight 91.4 kg [place] Body Weight (kg) 67.27 BMI 31.5 Weight Status Obese Subjective/Other Information MD consult on evaluae nutritional intake. Pt on mechanical vent with NGT present as of yesterday morning set to LIS. Percent of energy/protein needs met: 0%/0% Burn Absent Trauma Absent Difficulty In Swallowing Skin Integrity/Comment Intact Current % PO Negligible Minimum of two criteria No physical signs of malnutrition #1 Nutrition Diagnosis Inadequate oral intake Etiology inability to feed via po As Evidenced by Signs and Symptoms pt on mechanical vent at this time Is patient on ventilator? Yes Is Patient Ambulatory and/or Out of Bed No REE-([facility]-confined to bed) 2011.004 Kcal/Kg value to use for calculation 17 Approximate Energy Requirements Using 1554 kcal/Kg Calculation Used for Recommendations Kcal/kg Additional Notes protein needs: >135 g(>2g/ kgIBW) fluid needs: 1000 - 1500 ml/ day or per MD order Nutrition Intervention Change Diet Order: Initiate TF or feed via PO if medically feasible Nutrition Support: Nepro at 35 ml/hr with a free water flush of 150 ml q4h. Kcal 1,512 Protein (gm) 68 Fluid (mL) 611 Goal #1 Start TF or feed via PO if extubated Anticipated Discharge Needs: unable to determine at this time Follow-Up By: 12/26/20 Additional Comments F/U for TF consult, vent status
--- NOTE | 2020-12-25 14:56 | Progress Note ---
Assessment and Plan Acute hypoxemic respiratory failure, on mechanical ventilatory support. Severe Sepsis Peritonitis Acute small-bowel obstruction with tissue necrosis. End-stage renal disease, on dialysis. Hypertension. Crohn's disease. Gastroesophageal reflux disease. Heart failure with reduced ejection fraction. Hyperkalemia. Anemia that is normocytic. Lactic acidosis. Oropharyngeal dysphagia - reduced set rate to 14/min - begin Benadryl & BID Pepcid re: Angioedema / macroglossia - hold on steroids for now re: wound healing issues - continue care as below otherwise; - continue Daily SAT and SBT assessment as tolerated - continue to wean supplemental oxygen for target O2 sat's > 92% acutely - VAP bundle addressed - continue lung protective strategies - continue bronchodilators with pulmonary hygiene per RT - wean per pulmonary driven protocols otherwise - HD/UF per nephrology prescription for toxin and volume control - avoid nephrotoxins, renally dose all medications - continue accuchecks with glycemic control per SSI (While critically ill target blood glucose of 140-180 mg/dL; avoid hypoglycemia) - sedation prn for target RASS 0 to -1 - continue to avoid benzodiazepine's, reduce the possibility of delirium - complete AB's per ID rec's - prn analgesia per CPOT score - Maintenance of sleep-wake cycle, avoid delirium - enteral nutritional support at goal rate as tolerated (once cleared by pau morrison) - G.I. & VTE prophylaxis - PT/OT/ROM exercises - continue mobility protocols for pressure ulcer prophylaxis - Monitor hemodynamics closely - continue other care per attending / other consultants - discharge planning ongoing concurrently COVID SPECIFIC INTERVENTIONS - Remdesivir as per ID/Pulmonary developed protocols - consider systemic steroids for severe COVID-19 infection empirically - follow repeat COVID tests results - zinc and vitamin C supplementation - Monitor inflammatory markers per facility protocol - ferritin, Ddimer, CRP - therapeutic anticoagulation per system Protocol based on d-dimer and clinical considerations - Continue contact and airborne isolation .... Re-evaluate in am & prn CONDITION: CRITICAL PROGNOSIS: GUARDED CODE STATUS: FULL CODE The high probability of a clinically significant, sudden or life-threatening deterioration of the [respiratory, cardiovascular, GI & neurologic] system(s) required my full and direct attention, intervention and personal management. The aggregate critical care time was [32] minutes without overlap. Time includes spent on; [x] Data Review and interpretation [x] Patient assessment and monitoring of vital signs [x] Documentation [x] Medication orders and management Subjective Date of service: 12/25/20 Principal diagnosis: Ac hypoxemic resp failure; Severe Sepsis; Peritonitis; Acute SBO; ESRD; CHF Interval history: Patient is seen today for: Ac hypoxemic resp failure; Severe Sepsis; Peritonitis; Acute SBO; ESRD on Dialysis; HTN; Crohn's disease; HFrEF Seen and examined at bedside; 24hour events reviewed; nursing and respiratory care staff consulted; no adverse overnight events reported to me; resting in bed; tongue swelling (? Angioedema) is worse; no emesis or overt aspiration; failed bedside SBT; no gross bleeding Objective Vital Signs - 12hr 12/25/20 12/25/20 12/25/20 03:00 03:10 03:20 Pulse Rate 97 H 106 H 105 H Pulse Rate [ From Monitor] Respiratory 28 H 27 H 30 H Rate Blood Pressure 92/57 92/57 99/59 O2 Sat by Pulse 99 99 98 Oximetry 12/25/20 12/25/20 12/25/20 03:30 03:40 03:50 Pulse Rate 100 H 100 H 103 H Pulse Rate [ From Monitor] Respiratory 17 22 23 Rate Blood Pressure 93/58 93/58 93/67 O2 Sat by Pulse 98 99 99 Oximetry 12/25/20 12/25/20 12/25/20 04:00 04:09 04:10 Pulse Rate 102 H 102 H 105 H Pulse Rate [ 102 H From Monitor] Respiratory 25 H 25 H Rate Blood Pressure 93/56 93/56 93/56 O2 Sat by Pulse 99 98 98 Oximetry 12/25/20 12/25/20 12/25/20 04:20 04:30 04:40 Pulse Rate 102 H 102 H 104 H Pulse Rate [ From Monitor] Respiratory 20 20 20 Rate Blood Pressure 102/66 100/61 100/61 O2 Sat by Pulse 99 99 99 Oximetry 12/25/20 12/25/20 12/25/20 04:50 05:00 05:10 Pulse Rate 105 H 101 H 102 H Pulse Rate [ From Monitor] Respiratory 20 20 20 Rate Blood Pressure 87/53 95/59 95/59 O2 Sat by Pulse 99 99 100 Oximetry 12/25/20 12/25/20 12/25/20 05:20 05:30 05:40 Pulse Rate 97 H 97 H 96 H Pulse Rate [ From Monitor] Respiratory 20 20 20 Rate Blood Pressure 91/60 99/64 99/64 O2 Sat by Pulse 100 100 100 Oximetry 12/25/20 12/25/20 12/25/20 05:50 06:00 06:10 Pulse Rate 101 H 102 H 101 H Pulse Rate [ From Monitor] Respiratory 16 20 20 Rate Blood Pressure 94/61 97/58 97/58 O2 Sat by Pulse 98 99 99 Oximetry 12/25/20 12/25/20 12/25/20 06:20 06:30 06:40 Pulse Rate 99 H 96 H 96 H Pulse Rate [ From Monitor] Respiratory 20 20 20 Rate Blood Pressure 91/55 97/60 97/60 O2 Sat by Pulse 100 100 100 Oximetry 12/25/20 12/25/20 12/25/20 06:50 07:00 07:10 Pulse Rate 96 H 95 H 94 H Pulse Rate [ From Monitor] Respiratory 20 20 20 Rate Blood Pressure 97/60 103/66 103/66 O2 Sat by Pulse 100 100 100 Oximetry 12/25/20 12/25/20 12/25/20 07:20 07:30 07:40 Pulse Rate 94 H 98 H 94 H Pulse Rate [ From Monitor] Respiratory 20 20 20 Rate Blood Pressure 105/64 109/71 109/71 O2 Sat by Pulse 100 87 99 Oximetry 12/25/20 12/25/20 12/25/20 07:50 08:00 08:10 Pulse Rate 91 H 93 H 97 H Pulse Rate [ 104 H From Monitor] Respiratory 20 20 20 Rate Blood Pressure 102/64 115/72 115/72 O2 Sat by Pulse 99 99 99 Oximetry 12/25/20 12/25/20 12/25/20 08:20 08:30 08:35 Pulse Rate 95 H 98 H 96 H Pulse Rate [ From Monitor] Respiratory 20 20 Rate Blood Pressure 115/72 115/72 115/72 O2 Sat by Pulse 99 99 99 Oximetry 12/25/20 12/25/20 12/25/20 08:40 08:50 09:00 Pulse Rate 95 H 95 H 96 H Pulse Rate [ From Monitor] Respiratory 20 20 20 Rate Blood Pressure 115/72 115/72 97/62 O2 Sat by Pulse 99 98 100 Oximetry 12/25/20 12/25/20 12/25/20 09:10 09:20 09:30 Pulse Rate 95 H 97 H 97 H Pulse Rate [ From Monitor] Respiratory 20 20 20 Rate Blood Pressure 97/62 97/62 97/62 O2 Sat by Pulse 100 99 98 Oximetry 12/25/20 12/25/20 12/25/20 09:40 09:50 10:00 Pulse Rate 94 H 94 H 90 Pulse Rate [ From Monitor] Respiratory 20 20 20 Rate Blood Pressure 97/62 97/62 106/63 O2 Sat by Pulse 99 98 98 Oximetry 12/25/20 12/25/20 12/25/20 10:10 10:20 10:30 Pulse Rate 95 H 93 H 93 H Pulse Rate [ From Monitor] Respiratory 20 20 20 Rate Blood Pressure 106/63 106/63 106/63 O2 Sat by Pulse 99 99 99 Oximetry 12/25/20 12/25/20 12/25/20 10:40 10:50 11:00 Pulse Rate 101 H 99 H 97 H Pulse Rate [ From Monitor] Respiratory 20 20 20 Rate Blood Pressure 106/63 106/63 101/59 O2 Sat by Pulse 99 99 99 Oximetry 12/25/20 12/25/20 12/25/20 11:10 11:20 11:30 Pulse Rate 103 H 99 H 97 H Pulse Rate [ From Monitor] Respiratory 20 20 20 Rate Blood Pressure 101/59 101/59 101/59 O2 Sat by Pulse 97 99 99 Oximetry 12/25/20 12/25/20 12/25/20 11:40 11:50 11:55 Pulse Rate 97 H 98 H 97 H Pulse Rate [ From Monitor] Respiratory 20 20 Rate Blood Pressure 101/59 101/59 101/59 O2 Sat by Pulse 99 99 99 Oximetry 12/25/20 12/25/20 12/25/20 12:00 12:10 12:20 Pulse Rate 94 H 93 H 95 H Pulse Rate [ From Monitor] Respiratory 20 20 20 Rate Blood Pressure 100/62 100/62 100/62 O2 Sat by Pulse 98 98 98 Oximetry 12/25/20 12/25/20 12/25/20 12:30 12:40 12:50 Pulse Rate 93 H 92 H 90 Pulse Rate [ From Monitor] Respiratory 20 20 20 Rate Blood Pressure 100/62 100/62 100/62 O2 Sat by Pulse 98 97 98 Oximetry 12/25/20 12/25/20 12/25/20 13:00 13:10 13:20 Pulse Rate 93 H 90 90 Pulse Rate [ From Monitor] Respiratory 20 20 20 Rate Blood Pressure 109/64 109/64 109/64 O2 Sat by Pulse 98 98 98 Oximetry 12/25/20 12/25/20 12/25/20 13:30 13:40 13:50 Pulse Rate 90 100 H 99 H Pulse Rate [ From Monitor] Respiratory 20 21 19 Rate Blood Pressure 109/64 109/64 109/64 O2 Sat by Pulse 98 98 98 Oximetry 12/25/20 14:00 Pulse Rate 95 H Pulse Rate [ From Monitor] Respiratory 20 Rate Blood Pressure 117/68 O2 Sat by Pulse 98 Oximetry Constitutional: appears uncomfortable, other (elderly male with mildly increased respiratory effort at rest on MVS) Eyes: non-icteric ENT: oropharynx moist, other (ETT 24 cm LEEANN) Neck: supple, no lymphadenopathy, no JVD Effort: mildly labored Ascultation: Bilateral: diminished breath sounds, rhonchi Percussion: Bilateral: not dull Cardiovascular: regular rate and rhythm Gastrointestinal: hypoactive bowel sounds, soft, tender (mild) Integumentary: other (popst surgical changes) Extremities: no cyanosis, no edema, pulses normal, no ischemia or petechiae Neurologic: non-focal exam (grossly), pupils equal and round, other (sedated) Psychiatric: other (unable to assess re: AMS) CBC and BMP: 12/26/20 04:46 12/25/20 04:00 ABG, PT/INR, D-dimer: ABG ABG pH 7.544 (7.320-7.450) H 12/25/20 03:33 POC ABG pCO2 28.2 mmHg (32.0-48.0) L 12/25/20 03:33 ABG pCO2 49.7 mm Hg 12/23/20 20:35 POC ABG pO2 62.8 mmHg (83-108) L 12/25/20 03:33 ABG pO2 50.1 mm Hg (80.0-90.0) L 12/23/20 20:35 POC ABG HCO3 23.8 12/25/20 03:33 ABG O2 Saturation 94.0 (0-100) 12/25/20 03:33 PT/INR, D-dimer PT 13.8 Sec. (12.2-14.9) 12/22/20 14:38 INR 1.07 (0.87-1.13) 12/22/20 14:38 Abnormal lab findings: Abnormal Labs 12/22/20 12/22/20 12/22/20 14:38 14:38 14:38 WBC RBC Hgb 11.2 L Hct 35.0 L RDW 16.7 H Plt Count Lymph % (Auto) [place] % (Auto) Lymph # (Auto) Seg Neutrophils % Seg Neuts % (Manual) 94.0 H Lymphocytes % (Manual) 5.0 L Seg Neutrophils # Man Lymphocytes # (Manual) 0.3 L ABG pH POC ABG pCO2 POC ABG pO2 ABG pO2 ABG O2 Saturation ABG Base Excess ABG Hemoglobin ABG Oxyhemoglobin ABG Sodium ABG Potassium ABG Chloride ABG Glucose Oxyhemoglobin Sodium Potassium Carbon Dioxide BUN 58 H Creatinine 13.2 H Glucose 113 H Lactic Acid 3.60 H* Calcium Phosphorus Total Bilirubin 1.30 H AST ALT Alkaline Phosphatase 155 H Total Protein Albumin Arterial Blood Glucose Arterial Blood Ionized Calcium Crossmatch 12/22/20 12/22/20 12/23/20 16:26 17:47 05:22 WBC RBC Hgb Hct RDW Plt Count Lymph % (Auto) [place] % (Auto) Lymph # (Auto) Seg Neutrophils % Seg Neuts % (Manual) Lymphocytes % (Manual) Seg Neutrophils # Man Lymphocytes # (Manual) ABG pH POC ABG pCO2 POC ABG pO2 ABG pO2 ABG O2 Saturation ABG Base Excess ABG Hemoglobin ABG Oxyhemoglobin ABG Sodium ABG Potassium ABG Chloride ABG Glucose Oxyhemoglobin Sodium Potassium Carbon Dioxide BUN Creatinine Glucose Lactic Acid 2.80 H* 3.10 H* 2.30 H* Calcium Phosphorus Total Bilirubin AST ALT Alkaline Phosphatase Total Protein Albumin Arterial Blood Glucose Arterial Blood Ionized Calcium Crossmatch 12/23/20 12/23/20 12/23/20 05:22 05:22 06:35 WBC 12.1 H RBC Hgb 11.0 L Hct 33.7 L RDW 16.9 H Plt Count Lymph % (Auto) [place] % (Auto) Lymph # (Auto) Seg Neutrophils % Seg Neuts % (Manual) 93.0 H Lymphocytes % (Manual) 1.0 L Seg Neutrophils # Man 11.3 H Lymphocytes # (Manual) 0.1 L ABG pH POC ABG pCO2 POC ABG pO2 ABG pO2 ABG O2 Saturation ABG Base Excess ABG Hemoglobin ABG Oxyhemoglobin ABG Sodium ABG Potassium ABG Chloride ABG Glucose Oxyhemoglobin Sodium Potassium 5.7 H D Carbon Dioxide BUN 73 H Creatinine 14.2 H Glucose Lactic Acid 2.30 H* Calcium 7.9 L Phosphorus Total Bilirubin 1.40 H AST 119 H ALT 130 H Alkaline Phosphatase 183 H Total Protein 6.1 L Albumin 3.6 L Arterial Blood Glucose Arterial Blood Ionized Calcium Crossmatch 12/23/20 12/23/20 12/23/20 11:40 13:53 16:47 WBC RBC Hgb 10.0 L Hct 30.4 L RDW Plt Count Lymph % (Auto) [place] % (Auto) Lymph # (Auto) Seg Neutrophils % Seg Neuts % (Manual) Lymphocytes % (Manual) Seg Neutrophils # Man Lymphocytes # (Manual) ABG pH POC ABG pCO2 POC ABG pO2 137.5 H ABG pO2 ABG O2 Saturation ABG Base Excess ABG Hemoglobin 9.7 L ABG Oxyhemoglobin ABG Sodium 134.1 L ABG Potassium 6.6 H ABG Chloride ABG Glucose 103 H Oxyhemoglobin Sodium Potassium Carbon Dioxide BUN Creatinine Glucose Lactic Acid Calcium Phosphorus Total Bilirubin AST ALT Alkaline Phosphatase Total Protein Albumin Arterial Blood Glucose 103 H Arterial Blood Ionized Calcium 3.8 L Crossmatch See Detail 12/23/20 12/23/20 12/24/20 20:35 20:40 01:20 WBC RBC Hgb Hct RDW Plt Count Lymph % (Auto) [place] % (Auto) Lymph # (Auto) Seg Neutrophils % Seg Neuts % (Manual) Lymphocytes % (Manual) Seg Neutrophils # Man Lymphocytes # (Manual) ABG pH 7.252 L POC ABG pCO2 POC ABG pO2 ABG pO2 50.1 L ABG O2 Saturation 81.1 L ABG Base Excess -5.9 L ABG Hemoglobin 12.1 L ABG Oxyhemoglobin ABG Sodium ABG Potassium ABG Chloride ABG Glucose Oxyhemoglobin 78.6 L Sodium 134 L Potassium 6.9 H* D 6.3 H* Carbon Dioxide 18 L 20 L BUN 87 H 91 H Creatinine 15.3 H 15.3 H Glucose 103 H Lactic Acid Calcium 6.9 L 7.5 L Phosphorus Total Bilirubin AST ALT Alkaline Phosphatase Total Protein Albumin Arterial Blood Glucose Arterial Blood Ionized Calcium Crossmatch 12/24/20 12/24/20 12/24/20 04:00 10:29 10:29 WBC RBC 3.49 L Hgb 10.5 L Hct 31.2 L RDW 17.5 H Plt Count 124 L Lymph % (Auto) 3.7 L [place] % (Auto) 9.8 H Lymph # (Auto) 0.2 L Seg Neutrophils % 85.9 H Seg Neuts % (Manual) Lymphocytes % (Manual) Seg Neutrophils # Man Lymphocytes # (Manual) ABG pH POC ABG pCO2 28.1 L POC ABG pO2 ABG pO2 ABG O2 Saturation ABG Base Excess ABG Hemoglobin ABG Oxyhemoglobin ABG Sodium 133.9 L ABG Potassium 5.3 H ABG Chloride 108.0 H ABG Glucose Oxyhemoglobin Sodium Potassium 5.6 H Carbon Dioxide 19 L BUN 99 H Creatinine 16.9 H Glucose 52 L Lactic Acid Calcium 7.6 L Phosphorus Total Bilirubin 3.50 H AST 67 H ALT 71 H Alkaline Phosphatase Total Protein 3.5 L D Albumin 2.1 L Arterial Blood Glucose Arterial Blood Ionized Calcium 4.0 L Crossmatch 12/25/20 12/25/20 12/25/20 03:33 04:00 04:00 WBC 3.8 L RBC 2.90 L Hgb 8.6 L Hct 25.7 L RDW 16.7 H Plt Count 113 L Lymph % (Auto) [place] % (Auto) Lymph # (Auto) Seg Neutrophils % Seg Neuts % (Manual) Lymphocytes % (Manual) Seg Neutrophils # Man Lymphocytes # (Manual) ABG pH 7.544 H POC ABG pCO2 28.2 L POC ABG pO2 62.8 L ABG pO2 ABG O2 Saturation ABG Base Excess ABG Hemoglobin 9.3 L ABG Oxyhemoglobin 93.0 L ABG Sodium 130.3 L ABG Potassium ABG Chloride ABG Glucose 97 H Oxyhemoglobin Sodium Potassium Carbon Dioxide BUN 62 H Creatinine 11.4 H Glucose Lactic Acid Calcium 7.7 L Phosphorus 5.00 H Total Bilirubin AST ALT Alkaline Phosphatase Total Protein Albumin Arterial Blood Glucose 97 H Arterial Blood Ionized Calcium 3.9 L Crossmatch Chest x-ray: image reviewed (AB gan & ETT in good position) Allied health notes reviewed: nursing
--- NOTE | 2020-12-25 16:43 | Progress Note ---
Assessment and Plan 60 yo M s/p ex lap with extensive lysis of adhesions and two small bowel resections with primary anastamosis, POD 2 1. SBO with necrotic segment small bowel 2. ESRD 3. PD catheter with possible peritonitis Pt febrile overnight, remains on mechanical ventilation. Pt will have prolonged ileus 1. NPO, NGT to LIWS 2. gentle IVF 3. DVT ppx 4. continue abx, ID consult noted 5. Monitor fevers - likely multifactorial - ?infected PD catheter vs sepsis caused by necrotic small bowel/SBO. Would continue to monitor and will discuss repeating CT scan with Dr. Sanchez. May need to remove PD catheter. Cx pending. 6. continue vent management per ICU team 7. pain control - on fent gtt and prn morphine 8. Ict Support Engineer consult noted - recommend starting patient on PPN/TPN as starting oral diet/TF unlikely in next several days - orders placed 9 HD per nephro 10. daily labs Prognosis: Guarded Continue ICU care Thank you, please call with questions. Subjective Date of service: 12/25/20 Narrative: Pt seen and examined. Arousable on vent. c/o pain in abdomen. Febrile overnight to 103. Remains intubated on vent. Objective Vital Signs - 12hr 12/25/20 12/25/20 12/25/20 04:40 04:50 05:00 Pulse Rate 104 H 105 H 101 H Pulse Rate [ From Monitor] Respiratory 20 20 20 Rate Blood Pressure 100/61 87/53 95/59 O2 Sat by Pulse 99 99 99 Oximetry 12/25/20 12/25/20 12/25/20 05:10 05:20 05:30 Pulse Rate 102 H 97 H 97 H Pulse Rate [ From Monitor] Respiratory 20 20 20 Rate Blood Pressure 95/59 91/60 99/64 O2 Sat by Pulse 100 100 100 Oximetry 12/25/20 12/25/20 12/25/20 05:40 05:50 06:00 Pulse Rate 96 H 101 H 102 H Pulse Rate [ From Monitor] Respiratory 20 16 20 Rate Blood Pressure 99/64 94/61 97/58 O2 Sat by Pulse 100 98 99 Oximetry 12/25/20 12/25/20 12/25/20 06:10 06:20 06:30 Pulse Rate 101 H 99 H 96 H Pulse Rate [ From Monitor] Respiratory 20 20 20 Rate Blood Pressure 97/58 91/55 97/60 O2 Sat by Pulse 99 100 100 Oximetry 12/25/20 12/25/20 12/25/20 06:40 06:50 07:00 Pulse Rate 96 H 96 H 95 H Pulse Rate [ From Monitor] Respiratory 20 20 20 Rate Blood Pressure 97/60 97/60 103/66 O2 Sat by Pulse 100 100 100 Oximetry 12/25/20 12/25/20 12/25/20 07:10 07:20 07:30 Pulse Rate 94 H 94 H 98 H Pulse Rate [ From Monitor] Respiratory 20 20 20 Rate Blood Pressure 103/66 105/64 109/71 O2 Sat by Pulse 100 100 87 Oximetry 12/25/20 12/25/20 12/25/20 07:40 07:50 08:00 Pulse Rate 94 H 91 H 93 H Pulse Rate [ 104 H From Monitor] Respiratory 20 20 20 Rate Blood Pressure 109/71 102/64 115/72 O2 Sat by Pulse 99 99 99 Oximetry 12/25/20 12/25/20 12/25/20 08:10 08:20 08:30 Pulse Rate 97 H 95 H 98 H Pulse Rate [ From Monitor] Respiratory 20 20 20 Rate Blood Pressure 115/72 115/72 115/72 O2 Sat by Pulse 99 99 99 Oximetry 12/25/20 12/25/20 12/25/20 08:35 08:40 08:50 Pulse Rate 96 H 95 H 95 H Pulse Rate [ From Monitor] Respiratory 20 20 Rate Blood Pressure 115/72 115/72 115/72 O2 Sat by Pulse 99 99 98 Oximetry 12/25/20 12/25/20 12/25/20 09:00 09:10 09:20 Pulse Rate 96 H 95 H 97 H Pulse Rate [ From Monitor] Respiratory 20 20 20 Rate Blood Pressure 97/62 97/62 97/62 O2 Sat by Pulse 100 100 99 Oximetry 12/25/20 12/25/20 12/25/20 09:30 09:40 09:50 Pulse Rate 97 H 94 H 94 H Pulse Rate [ From Monitor] Respiratory 20 20 20 Rate Blood Pressure 97/62 97/62 97/62 O2 Sat by Pulse 98 99 98 Oximetry 12/25/20 12/25/20 12/25/20 10:00 10:10 10:20 Pulse Rate 90 95 H 93 H Pulse Rate [ From Monitor] Respiratory 20 20 20 Rate Blood Pressure 106/63 106/63 106/63 O2 Sat by Pulse 98 99 99 Oximetry 12/25/20 12/25/20 12/25/20 10:30 10:40 10:50 Pulse Rate 93 H 101 H 99 H Pulse Rate [ From Monitor] Respiratory 20 20 20 Rate Blood Pressure 106/63 106/63 106/63 O2 Sat by Pulse 99 99 99 Oximetry 12/25/20 12/25/20 12/25/20 11:00 11:10 11:20 Pulse Rate 97 H 103 H 99 H Pulse Rate [ From Monitor] Respiratory 20 20 20 Rate Blood Pressure 101/59 101/59 101/59 O2 Sat by Pulse 99 97 99 Oximetry 12/25/20 12/25/20 12/25/20 11:30 11:40 11:50 Pulse Rate 97 H 97 H 98 H Pulse Rate [ From Monitor] Respiratory 20 20 20 Rate Blood Pressure 101/59 101/59 101/59 O2 Sat by Pulse 99 99 99 Oximetry 12/25/20 12/25/20 12/25/20 11:55 12:00 12:10 Pulse Rate 97 H 94 H 93 H Pulse Rate [ From Monitor] Respiratory 20 20 Rate Blood Pressure 101/59 100/62 100/62 O2 Sat by Pulse 99 98 98 Oximetry 12/25/20 12/25/20 12/25/20 12:20 12:30 12:40 Pulse Rate 95 H 93 H 92 H Pulse Rate [ From Monitor] Respiratory 20 20 20 Rate Blood Pressure 100/62 100/62 100/62 O2 Sat by Pulse 98 98 97 Oximetry 12/25/20 12/25/20 12/25/20 12:50 13:00 13:10 Pulse Rate 90 93 H 90 Pulse Rate [ From Monitor] Respiratory 20 20 20 Rate Blood Pressure 100/62 109/64 109/64 O2 Sat by Pulse 98 98 98 Oximetry 12/25/20 12/25/20 12/25/20 13:20 13:30 13:40 Pulse Rate 90 90 100 H Pulse Rate [ From Monitor] Respiratory 20 20 21 Rate Blood Pressure 109/64 109/64 109/64 O2 Sat by Pulse 98 98 98 Oximetry 12/25/20 12/25/20 12/25/20 13:50 14:00 14:10 Pulse Rate 99 H 95 H 95 H Pulse Rate [ From Monitor] Respiratory 19 20 20 Rate Blood Pressure 109/64 117/68 109/64 O2 Sat by Pulse 98 98 98 Oximetry 12/25/20 12/25/20 12/25/20 14:20 14:30 14:40 Pulse Rate 103 H 99 H 99 H Pulse Rate [ From Monitor] Respiratory 20 20 20 Rate Blood Pressure 109/64 109/64 109/64 O2 Sat by Pulse 98 98 98 Oximetry 12/25/20 12/25/20 12/25/20 14:50 15:00 15:10 Pulse Rate 102 H 96 H 96 H Pulse Rate [ From Monitor] Respiratory 21 20 20 Rate Blood Pressure 109/64 107/66 107/66 O2 Sat by Pulse 98 98 98 Oximetry 12/25/20 12/25/20 12/25/20 15:20 15:30 15:40 Pulse Rate 95 H 96 H 94 H Pulse Rate [ From Monitor] Respiratory 20 20 20 Rate Blood Pressure 107/66 107/66 107/66 O2 Sat by Pulse 98 98 98 Oximetry 12/25/20 12/25/20 15:50 16:00 Pulse Rate 96 H 97 H Pulse Rate [ From Monitor] Respiratory 20 20 Rate Blood Pressure 107/66 105/72 O2 Sat by Pulse 98 98 Oximetry - General physical appearance Narrative Exam: Gen: Arousable, opens eyes to name and answers yes/no questions appropriately. NAD ENT: NGT and ETT in place. Bilious output from NGT CV: s1, S2+. Tachy, low 100s Resp: on vent Abd: soft, distended, TTP near incision. All dressings removed, incisions c/d/i. Ext: +edema NGT output: - Labs 12/25/20 04:00 12/25/20 04:00 Diabetes panel 12/25/20 Range/Units 04:00 Sodium 138 (137-145) mmol/L Potassium 4.5 (3.6-5.0) mmol/L Chloride 103.4 (98-107) mmol/L Carbon Dioxide 26 D (22-30) mmol/L BUN 62 H (9-20) mg/dL Creatinine 11.4 H (0.8-1.3) mg/dL Glucose 95 (75-100) mg/dL Calcium 7.7 L (8.4-10.2) mg/dL Calcium panel 12/25/20 Range/Units 04:00 Calcium 7.7 L (8.4-10.2) mg/dL Phosphorus 5.00 H (2.5-4.5) mg/dL Pituitary panel 12/25/20 Range/Units 04:00 Sodium 138 (137-145) mmol/L Potassium 4.5 (3.6-5.0) mmol/L Chloride 103.4 (98-107) mmol/L Carbon Dioxide 26 D (22-30) mmol/L BUN 62 H (9-20) mg/dL Creatinine 11.4 H (0.8-1.3) mg/dL Glucose 95 (75-100) mg/dL Calcium 7.7 L (8.4-10.2) mg/dL Adrenal panel 12/25/20 Range/Units 04:00 Sodium 138 (137-145) mmol/L Potassium 4.5 (3.6-5.0) mmol/L Chloride 103.4 (98-107) mmol/L Carbon Dioxide 26 D (22-30) mmol/L BUN 62 H (9-20) mg/dL Creatinine 11.4 H (0.8-1.3) mg/dL Glucose 95 (75-100) mg/dL Calcium 7.7 L (8.4-10.2) mg/dL
[2020-12-25] MEDS: diphenhydrAMINE 50 MG/ML VIAL IV SCH (20:53)
[2020-12-26 04:15] LABS: ABG Base Excess -2.4 mmol/L (-2.0-3.0); ABG HCO3 23.3 mmol/L (20.0-26.0); ABG Methemoglobin 0.6 % (0.0-1.5); ABG PCO2 44.8 mm Hg; ABG PH 7.333 pH Units (7.350-7.450); ABG PO2 81.9 mm Hg (80.0-90.0)
[2020-12-26] MEDS: fentaNYL DRIP Premix 2,000 MCG/100 ML BAG IV SCH ×4 (04:23→19:59)
[2020-12-26] MEDS: diphenhydrAMINE 50 MG/ML VIAL IV SCH ×3 (04:34→20:48)
[2020-12-26 05:34] LABS: Basophils # (Auto) 0.1 K/mm3 (0.0-0.1); Basophils % (Auto) 1.8 % (0.0-1.8); Eosinophils # (Auto) 0.1 K/mm3 (0.0-0.4); Eosinophils % (Auto) 3.5 % (0.0-4.3); Hematocrit 23.4 % (35.5-45.6); Hemoglobin 7.8 gm/dl (11.8-15.2); Lymphocytes # (Auto) 0.2 K/mm3 (1.2-5.4); Lymphocytes % (Auto) 5.3 % (13.4-35.0); Mean Corpuscular HGB Conc 33 % (32-34); Mean Corpuscular Volume 90 fl (84-94); Monocytes # (Auto) 0.4 K/mm3 (0.0-0.8); Monocytes % (Auto) 10.6 % (0.0-7.3); Platelet Count 119 K/mm3 (140-440); Red Blood Count 2.61 M/mm3 (3.65-5.03); Red Cell Distribution Width 17.1 % (13.2-15.2)
--- NOTE | 2020-12-26 06:10 | XRay Report ---
CHEST 1 VIEW INDICATION / CLINICAL INFORMATION: follow up respiratory failure. COMPARISON: Chest radiograph one day prior FINDINGS: SUPPORT DEVICES: Stable position of endotracheal tube, enteric tube, and right IJ central venous cath eter. HEART / MEDIASTINUM: No significant abnormality. LUNGS / PLEURA: Mild left basilar subsegmental atelectasis. Otherwise no significant abnormality. No pneumothorax. ADDITIONAL FINDINGS: No significant additional findings. IMPRESSION: 1. No significant change. Signer Name: Olivia Sharma MD Signed: 12/26/2020 6:05 AM Workstation Name: [id number]
[2020-12-26] MEDS: metroNIDAZOLE/NS 500 MG/100 ML 500 MG/100 ML BAG IV SCH ×3 (06:34→21:05)
--- NOTE | 2020-12-26 09:36 | Progress Note ---
Assessment and Plan Assessment: - ESRD on peritoneal dialysis. He has been on peritoneal dialysis for the past 2 years. No history of peritonitis. - Abdominal pain. CT scan without organ perforation. Need to rule out peritonitis, culture negative but remains febrile. - small bowel obstruction s/p exp, necrotic bowel - Hypertension - Hyperkalemia - Anemia of ESRD - Hyperglycemia - severe sepsis - gram positive cocci bacteremia - Postoperative ileus - respiratory failure on vent Plan: - transitioned to HD, continue HD MWF or prn, due today as tolerated - continue IV empiric abx per ID - s/p ex lap, now off PD, will not be able to continue pd with adhesion and sbo s/p resection - uf as tolerated with HD - needs outpatient hd placement - stopped binders and sensipar - strict i/os - keep MAP >65, vasopressors prn - continue albumin IV - monitor electrolytes daily - appreciate multidisplinary approach to care from surgery, ID, pulm input; awaiting final cultures for consideration of PD catheter removal Subjective Date of service: 12/26/20 Principal diagnosis: Ac hypoxemic resp failure; Severe Sepsis; Peritonitis; Acute SBO; ESRD; CHF Interval history: In bed this AM, on vent with FiO2 30%, sedated on Fentanyl. Fevers over past 24 hours noted. Objective - Exam Narrative Exam: - General Limitations: Physical Limitation General appearance: alert but sedated, on vent, in no acute distress - Head Head exam: Present: atraumatic, normocephalic - Eye Eye exam: Present: normal appearance, EOMI - ENT ENT exam: Present: mucous membranes moist - Neck Neck exam: Present: normal inspection - Respiratory Respiratory exam: mechanical lung sounds noted - Cardiovascular Cardiovascular Exam: Present: normal rhythm, tachycardia - GI/Abdominal GI/Abdominal exam: Present: soft, distended (slightly), tenderness (periumbilical ) - Extremities Exam Extremities exam: Present: normal inspection - Neurological Exam Neurological exam: sedated - Psychiatric Psychiatric exam: sedated - Skin Skin exam: Present: warm, dry, intact, normal color - Vital Signs Vital signs: Vital Signs - 12hr 12/25/20 12/25/20 12/25/20 21:40 21:50 22:00 Temperature Pulse Rate 98 H 99 H 97 H Pulse Rate [ From Monitor] Respiratory 14 14 14 Rate Blood Pressure 106/72 106/72 109/65 O2 Sat by Pulse 97 97 97 Oximetry 12/25/20 12/25/20 12/25/20 22:10 22:20 22:30 Temperature Pulse Rate 97 H 95 H 96 H Pulse Rate [ From Monitor] Respiratory 14 14 14 Rate Blood Pressure 109/65 109/65 109/65 O2 Sat by Pulse 97 97 97 Oximetry 12/25/20 12/25/20 12/25/20 22:40 22:50 23:00 Temperature Pulse Rate 97 H 95 H 93 H Pulse Rate [ From Monitor] Respiratory 14 14 14 Rate Blood Pressure 109/65 109/65 106/65 O2 Sat by Pulse 97 97 97 Oximetry 12/25/20 12/25/20 12/25/20 23:10 23:20 23:30 Temperature Pulse Rate 95 H 94 H 91 H Pulse Rate [ From Monitor] Respiratory 14 14 14 Rate Blood Pressure 106/65 106/65 106/65 O2 Sat by Pulse 97 97 97 Oximetry 12/25/20 12/25/20 12/26/20 23:40 23:50 00:00 Temperature 99.8 F H Pulse Rate 95 H 98 H 97 H Pulse Rate [ 97 H From Monitor] Respiratory 14 16 14 Rate Blood Pressure 106/65 106/65 115/70 O2 Sat by Pulse 96 98 96 Oximetry 12/26/20 12/26/20 12/26/20 00:10 00:20 00:30 Temperature Pulse Rate 95 H 95 H 92 H Pulse Rate [ From Monitor] Respiratory 14 14 14 Rate Blood Pressure 115/70 115/70 115/70 O2 Sat by Pulse 95 96 96 Oximetry 12/26/20 12/26/20 12/26/20 00:40 00:50 01:00 Temperature Pulse Rate 95 H 94 H 92 H Pulse Rate [ From Monitor] Respiratory 14 14 14 Rate Blood Pressure 115/70 115/70 104/61 O2 Sat by Pulse 96 96 96 Oximetry 12/26/20 12/26/20 12/26/20 01:10 01:20 01:30 Temperature Pulse Rate 91 H 92 H 92 H Pulse Rate [ From Monitor] Respiratory 14 14 14 Rate Blood Pressure 104/61 104/61 104/61 O2 Sat by Pulse 96 96 96 Oximetry 12/26/20 12/26/20 12/26/20 01:40 01:50 02:00 Temperature Pulse Rate 91 H 91 H 88 Pulse Rate [ From Monitor] Respiratory 14 14 14 Rate Blood Pressure 104/61 104/61 110/63 O2 Sat by Pulse 96 96 96 Oximetry 12/26/20 12/26/20 12/26/20 02:10 02:20 02:30 Temperature Pulse Rate 89 98 H 93 H Pulse Rate [ From Monitor] Respiratory 14 15 14 Rate Blood Pressure 110/63 110/63 110/63 O2 Sat by Pulse 96 96 94 Oximetry 12/26/20 12/26/20 12/26/20 02:40 02:50 03:00 Temperature Pulse Rate 100 H 97 H 94 H Pulse Rate [ From Monitor] Respiratory 18 15 14 Rate Blood Pressure 110/63 110/63 120/73 O2 Sat by Pulse 95 94 94 Oximetry 12/26/20 12/26/20 12/26/20 03:10 03:20 03:30 Temperature Pulse Rate 98 H 96 H 94 H Pulse Rate [ From Monitor] Respiratory 14 14 14 Rate Blood Pressure 120/73 120/73 120/73 O2 Sat by Pulse 95 95 95 Oximetry 12/26/20 12/26/20 12/26/20 03:40 03:50 04:00 Temperature 99.2 F Pulse Rate 95 H 93 H 94 H Pulse Rate [ 94 H From Monitor] Respiratory 14 14 14 Rate Blood Pressure 120/73 120/73 130/67 O2 Sat by Pulse 95 95 95 Oximetry 12/26/20 12/26/20 12/26/20 04:07 04:10 04:20 Temperature Pulse Rate 93 H 113 H 98 H Pulse Rate [ From Monitor] Respiratory 17 13 Rate Blood Pressure 130/67 130/67 130/67 O2 Sat by Pulse 95 100 95 Oximetry 12/26/20 12/26/20 12/26/20 04:30 04:40 04:50 Temperature Pulse Rate 92 H 91 H 92 H Pulse Rate [ From Monitor] Respiratory 14 14 14 Rate Blood Pressure 130/67 130/67 130/67 O2 Sat by Pulse 95 95 95 Oximetry 12/26/20 12/26/20 12/26/20 05:00 05:10 05:20 Temperature Pulse Rate 89 90 88 Pulse Rate [ From Monitor] Respiratory 14 14 14 Rate Blood Pressure 121/63 121/63 121/63 O2 Sat by Pulse 95 95 95 Oximetry 12/26/20 12/26/20 12/26/20 05:30 05:40 05:50 Temperature Pulse Rate 88 88 90 Pulse Rate [ From Monitor] Respiratory 14 14 18 Rate Blood Pressure 121/63 121/63 121/63 O2 Sat by Pulse 95 95 95 Oximetry 12/26/20 12/26/20 12/26/20 06:00 06:10 06:20 Temperature Pulse Rate 97 H 91 H 97 H Pulse Rate [ From Monitor] Respiratory 14 14 15 Rate Blood Pressure 135/79 135/79 135/79 O2 Sat by Pulse 95 95 95 Oximetry 12/26/20 12/26/20 12/26/20 06:30 06:40 06:50 Temperature Pulse Rate 91 H 90 88 Pulse Rate [ From Monitor] Respiratory 14 14 14 Rate Blood Pressure 135/79 135/79 135/79 O2 Sat by Pulse 93 94 94 Oximetry 12/26/20 12/26/20 12/26/20 07:00 07:10 07:20 Temperature Pulse Rate 87 87 88 Pulse Rate [ From Monitor] Respiratory 14 14 14 Rate Blood Pressure 121/66 121/66 121/66 O2 Sat by Pulse 94 95 94 Oximetry 12/26/20 12/26/20 12/26/20 07:30 07:40 07:50 Temperature Pulse Rate 87 87 86 Pulse Rate [ From Monitor] Respiratory 14 14 14 Rate Blood Pressure 135/79 135/79 135/79 O2 Sat by Pulse 94 94 94 Oximetry 12/26/20 12/26/20 12/26/20 08:00 08:10 08:20 Temperature Pulse Rate 86 87 87 Pulse Rate [ 96 H From Monitor] Respiratory 14 14 14 Rate Blood Pressure 123/68 123/68 123/68 O2 Sat by Pulse 95 94 94 Oximetry 12/26/20 12/26/20 12/26/20 08:30 08:39 08:40 Temperature Pulse Rate 87 92 H 88 Pulse Rate [ From Monitor] Respiratory 14 14 Rate Blood Pressure 123/68 123/68 123/68 O2 Sat by Pulse 94 95 95 Oximetry 12/26/20 12/26/20 08:50 09:00 Temperature Pulse Rate 91 H 89 Pulse Rate [ From Monitor] Respiratory 13 14 Rate Blood Pressure 123/68 125/70 O2 Sat by Pulse 95 94 Oximetry - Lab 12/26/20 04:46 12/25/20 04:00 Most recent lab results ABG pH 7.333 pH Units (7.350-7.450) L 12/26/20 Unknown ABG pCO2 44.8 mm Hg 12/26/20 Unknown ABG pO2 81.9 mm Hg (80.0-90.0) 12/26/20 Unknown ABG HCO3 23.3 mmol/L (20.0-26.0) 12/26/20 Unknown ABG O2 Saturation 95.0 % (95.0-99.0) 12/26/20 Unknown Calcium 7.7 mg/dL (8.4-10.2) L 12/25/20 04:00 Phosphorus 5.00 mg/dL (2.5-4.5) H 12/25/20 04:00 Magnesium 1.80 mg/dL (1.7-2.3) 12/25/20 04:00 Medications & Allergies - Medications Allergies/Adverse Reactions: Allergies No Known Allergies Allergy (Verified 06/09/20 15:27) Home Medications: Home Medications Medication Instructions Recorded Confirmed Last Taken Type Albuterol Mdi (or & Nicu Only) 2 puff IH QID PRN #1 inhalation 04/01/17 11/01/20 10/31/20 09:00 Rx [ProAir HFA Inhaler] Calcium Acetate 667 mg PO DAILY 04/20/20 11/01/20 10/31/20 09:00 History Centrum Men's Tablet 1 tab PO DAILY 04/20/20 11/01/20 10/31/20 09:00 History Cinacalcet 30 mg PO DAILY 04/20/20 11/01/20 10/31/20 09:00 History Dialyvite with Zinc Tablet 1 tab PO DAILY 04/20/20 11/01/20 10/31/20 09:00 History Magnesium 250 mg PO BID 04/20/20 11/01/20 10/31/20 17:00 History Triamcinolone 0.1% 1 1000units TRANSDERMA DAILY 04/20/20 11/01/20 10/31/20 09:00 History Vit B12/Folic Acid/B6/Aa No.15 1,000 mg PO DAILY 04/20/20 11/01/20 10/31/20 09:00 History amLODIPine 10 mg PO DAILY 06/09/20 11/01/20 10/31/20 09:00 History AtorvaSTATin 40 mg PO HS 11/01/20 11/01/20 10/31/20 21:00 History Benadryl 25 mg PO HS 11/01/20 11/01/20 10/31/20 21:00 History Diclofenac 1 TRANSDERMA QID 11/01/20 10/31/20 19:00 History Fluticasone Propionate 1 spray INTRANASAL DAILY 11/01/20 11/01/20 10/31/20 09:00 History Vitamin D3 2,000 units 11/01/20 10/31/20 09:00 History carvediloL 12.5 mg PO DAILY 11/01/20 11/01/20 10/31/20 09:00 History hydrALAZINE 100 mg PO TID 11/01/20 11/01/20 10/31/20 19:00 History Active Medications: Generic Name Dose Route Start Last Admin Trade Name Freq PRN Reason Stop Dose Admin Albumin Human 25 gm 12/25/20 11:00 12/25/20 22:05 Albumin Human 25% (25 Gm/100 Ml) Inj IV 12/27/20 22:01 25 gm Q12HR THOMAS Administration Albuterol 2.5 mg 12/22/20 19:42 Albuterol 2.5 Mg/3 Ml Nebu IH Q4HRT PRN Shortness Of Breath Diphenhydramine HCl 25 mg 12/25/20 20:00 12/26/20 04:34 Diphenhydramine 50 Mg/Ml Vial IV 01/01/21 19:59 25 mg Q8H THOMAS Administration Famotidine 10 mg 12/24/20 13:00 12/25/20 22:52 Famotidine 20 Mg/2 Ml Inj IV 10 mg BID THOMAS Administration Fentanyl 50 mcg 12/24/20 11:35 Fentanyl 100 Mcg/2 Ml Inj IV Q10MIN PRN ANALGESIA Heparin Sodium (Porcine) 5,000 unit 12/24/20 10:00 12/25/20 22:51 Heparin 5,000 Unit/1 Ml Vial SUB-Q 5,000 unit Q12HR THOMAS Administration Hydrophilic Ointment 1 applic 12/24/20 12:03 Lip Therapy Vaseline TP Q2H PRN Dry Lips Sodium Chloride 100 mls @ 999 mls/hr 12/23/20 11:03 Nacl 0.9% IV [place] PRN Hypotension Propofol 1,000 mg in 100 mls @ 5.484 mls/hr 12/23/20 19:00 12/24/20 18:54 Diprivan 10 Mg/Ml IV 0 mcg/kg/min TITR THOMAS 0 mls/hr Titration Protocol 10 MCG/KG/MIN Fentanyl Citrate 2,000 mcg in 100 mls @ 4.57 mls/hr 12/24/20 12:00 12/26/20 04:23 Fentanyl Drip Premix IV 4 mcg/kg/hr TITR THOMAS 18.28 mls/hr Administration Protocol 1 MCG/KG/HR Cefepime HCl 2 gm in 100 mls @ 200 mls/hr 12/26/20 16:00 Cefepime/Ns 2 Gm/100 Ml IV Q48H THOMAS Protocol Metronidazole 500 mg in 100 mls @ 100 mls/hr 12/25/20 14:00 12/26/20 06:34 Flagyl 500 Mg/100 Ml IV 100 mls/hr Q8HR THOMAS Administration Protocol Morphine Sulfate 2 mg 12/23/20 10:00 12/25/20 18:05 Morphine 2 Mg/1 Ml Inj IV 2 mg Q4H PRN Administration Pain, Moderate (4-6) Multi-Ingred Cream/Lotion/Oil/Oint 1 applic 12/24/20 12:03 Mineral Oil/Petrolatum, White Ophth Oint 3.5 Gm OU Q4H PRN Dry Eye(s) Nystatin 1 applic 12/23/20 11:00 12/25/20 10:28 Nystatin Cream 15 Gm Tube TP 1 applic DAILY THOMAS Administration Ondansetron HCl 4 mg 12/22/20 19:42 Ondansetron 4 Mg/2 Ml Inj IV Q8H PRN Nausea And Vomiting Sodium Chloride 10 ml 12/22/20 22:00 12/25/20 22:53 Sodium Chloride 0.9% 10 Ml Flush Syringe IV 10 ml BID THOMAS Administration Sodium Chloride 10 ml 12/22/20 19:42 Sodium Chloride 0.9% 10 Ml Flush Syringe IV PRN PRN LINE FLUSH Triamcinolone Acetonide 1 applic 12/23/20 11:00 12/25/20 10:27 Triamcinolone 0.1% Cream 15 Gm TP 1 applic DAILY THOMAS Administration
[2020-12-26] MEDS ORDERED: VANCOMYCIN PHARMACY TO DOSE IV SCH (10:00)
[2020-12-26] MEDS ORDERED: CEFEPIME/NS 2 GM/100 ML 2 GM/100 ML BAG IV SCH (10:00)
[2020-12-26] MEDS: FAMOTIDINE 20 MG/2 ML INJ IV SCH ×2 (10:04→21:06)
[2020-12-26] MEDS: HEPARIN 5,000 UNIT/1 ML VIAL SUB-Q SCH ×2 (10:04→21:05)
[2020-12-26] MEDS: ALBUMIN HUMAN 25% (25 GM/100 ML) INJ IV SCH ×2 (10:04→21:04)
[2020-12-26] MEDS: TRIAMCINOLONE 0.1% CREAM 15 GM TP SCH (10:05)
[2020-12-26] MEDS: NYSTATIN CREAM 15 GM TUBE TP SCH (10:05)
[2020-12-26] MEDS: CEFEPIME/NS 2 GM/100 ML 2 GM/100 ML BAG IV SCH (10:27)
--- NOTE | 2020-12-26 11:04 | Progress Note ---
Assessment and Plan POD#3 s/p ex lap with extensive lysis of adhesions and two small bowel resections with primary anastamosis for SBO with necrotic segement small bowel. Afebrile and stable on vent. - expect prolonged post op ileus, recommend TPN - ESRD -DD dialysis per nephrology - continue abx - wean vent as tolerated Subjective Date of service: 12/26/20 Narrative: no acute events overnight. Pt is intubated and nods head to questions. Failed weaning trial this morning Objective Vital Signs - 12hr 12/25/20 12/25/20 12/25/20 23:00 23:10 23:20 Temperature Pulse Rate 93 H 95 H 94 H Pulse Rate [ From Monitor] Respiratory 14 14 14 Rate Blood Pressure 106/65 106/65 106/65 O2 Sat by Pulse 97 97 97 Oximetry 12/25/20 12/25/20 12/25/20 23:30 23:40 23:50 Temperature Pulse Rate 91 H 95 H 98 H Pulse Rate [ From Monitor] Respiratory 14 14 16 Rate Blood Pressure 106/65 106/65 106/65 O2 Sat by Pulse 97 96 98 Oximetry 12/26/20 12/26/20 12/26/20 00:00 00:10 00:20 Temperature 99.8 F H Pulse Rate 97 H 95 H 95 H Pulse Rate [ 97 H From Monitor] Respiratory 14 14 14 Rate Blood Pressure 115/70 115/70 115/70 O2 Sat by Pulse 96 95 96 Oximetry 12/26/20 12/26/20 12/26/20 00:30 00:40 00:50 Temperature Pulse Rate 92 H 95 H 94 H Pulse Rate [ From Monitor] Respiratory 14 14 14 Rate Blood Pressure 115/70 115/70 115/70 O2 Sat by Pulse 96 96 96 Oximetry 12/26/20 12/26/20 12/26/20 01:00 01:10 01:20 Temperature Pulse Rate 92 H 91 H 92 H Pulse Rate [ From Monitor] Respiratory 14 14 14 Rate Blood Pressure 104/61 104/61 104/61 O2 Sat by Pulse 96 96 96 Oximetry 12/26/20 12/26/20 12/26/20 01:30 01:40 01:50 Temperature Pulse Rate 92 H 91 H 91 H Pulse Rate [ From Monitor] Respiratory 14 14 14 Rate Blood Pressure 104/61 104/61 104/61 O2 Sat by Pulse 96 96 96 Oximetry 12/26/20 12/26/20 12/26/20 02:00 02:10 02:20 Temperature Pulse Rate 88 89 98 H Pulse Rate [ From Monitor] Respiratory 14 14 15 Rate Blood Pressure 110/63 110/63 110/63 O2 Sat by Pulse 96 96 96 Oximetry 12/26/20 12/26/20 12/26/20 02:30 02:40 02:50 Temperature Pulse Rate 93 H 100 H 97 H Pulse Rate [ From Monitor] Respiratory 14 18 15 Rate Blood Pressure 110/63 110/63 110/63 O2 Sat by Pulse 94 95 94 Oximetry 12/26/20 12/26/20 12/26/20 03:00 03:10 03:20 Temperature Pulse Rate 94 H 98 H 96 H Pulse Rate [ From Monitor] Respiratory 14 14 14 Rate Blood Pressure 120/73 120/73 120/73 O2 Sat by Pulse 94 95 95 Oximetry 12/26/20 12/26/20 12/26/20 03:30 03:40 03:50 Temperature Pulse Rate 94 H 95 H 93 H Pulse Rate [ From Monitor] Respiratory 14 14 14 Rate Blood Pressure 120/73 120/73 120/73 O2 Sat by Pulse 95 95 95 Oximetry 12/26/20 12/26/20 12/26/20 04:00 04:07 04:10 Temperature 99.2 F Pulse Rate 94 H 93 H 113 H Pulse Rate [ 94 H From Monitor] Respiratory 14 17 Rate Blood Pressure 130/67 130/67 130/67 O2 Sat by Pulse 95 95 100 Oximetry 12/26/20 12/26/20 12/26/20 04:20 04:30 04:40 Temperature Pulse Rate 98 H 92 H 91 H Pulse Rate [ From Monitor] Respiratory 13 14 14 Rate Blood Pressure 130/67 130/67 130/67 O2 Sat by Pulse 95 95 95 Oximetry 12/26/20 12/26/20 12/26/20 04:50 05:00 05:10 Temperature Pulse Rate 92 H 89 90 Pulse Rate [ From Monitor] Respiratory 14 14 14 Rate Blood Pressure 130/67 121/63 121/63 O2 Sat by Pulse 95 95 95 Oximetry 12/26/20 12/26/20 12/26/20 05:20 05:30 05:40 Temperature Pulse Rate 88 88 88 Pulse Rate [ From Monitor] Respiratory 14 14 14 Rate Blood Pressure 121/63 121/63 121/63 O2 Sat by Pulse 95 95 95 Oximetry 12/26/20 12/26/20 12/26/20 05:50 06:00 06:10 Temperature Pulse Rate 90 97 H 91 H Pulse Rate [ From Monitor] Respiratory 18 14 14 Rate Blood Pressure 121/63 135/79 135/79 O2 Sat by Pulse 95 95 95 Oximetry 12/26/20 12/26/20 12/26/20 06:20 06:30 06:40 Temperature Pulse Rate 97 H 91 H 90 Pulse Rate [ From Monitor] Respiratory 15 14 14 Rate Blood Pressure 135/79 135/79 135/79 O2 Sat by Pulse 95 93 94 Oximetry 12/26/20 12/26/20 12/26/20 06:50 07:00 07:10 Temperature Pulse Rate 88 87 87 Pulse Rate [ From Monitor] Respiratory 14 14 14 Rate Blood Pressure 135/79 121/66 121/66 O2 Sat by Pulse 94 94 95 Oximetry 12/26/20 12/26/20 12/26/20 07:20 07:30 07:40 Temperature Pulse Rate 88 87 87 Pulse Rate [ From Monitor] Respiratory 14 14 14 Rate Blood Pressure 121/66 135/79 135/79 O2 Sat by Pulse 94 94 94 Oximetry 12/26/20 12/26/20 12/26/20 07:50 08:00 08:10 Temperature Pulse Rate 86 86 87 Pulse Rate [ 96 H From Monitor] Respiratory 14 14 14 Rate Blood Pressure 135/79 123/68 123/68 O2 Sat by Pulse 94 95 94 Oximetry 12/26/20 12/26/20 12/26/20 08:20 08:30 08:39 Temperature Pulse Rate 87 87 92 H Pulse Rate [ From Monitor] Respiratory 14 14 Rate Blood Pressure 123/68 123/68 123/68 O2 Sat by Pulse 94 94 95 Oximetry 12/26/20 12/26/20 12/26/20 08:40 08:50 09:00 Temperature Pulse Rate 88 91 H 89 Pulse Rate [ From Monitor] Respiratory 14 13 14 Rate Blood Pressure 123/68 123/68 125/70 O2 Sat by Pulse 95 95 94 Oximetry - General physical appearance well developed, well nourished, no distress, chronically ill - ENT other (glossitis improved) - Respiratory normal expansion, normal respiratory effort, other (remains intubated on vent) - Abdomen soft, distended, not guarding, not rigid, other (incision c/d/i, appropriately tender to palpation, 900cc recorded past 24 from NGT, currently tube has gastric contents) - Labs 12/26/20 04:46 12/25/20 04:00
--- NOTE | 2020-12-26 12:02 | Progress Note ---
Assessment and Plan Cultures: 12/22/2020 blood culture: GNR, GPC 12/22/2020 PD fluid culture: No growth 12/24/2020 tracheal aspirate culture: No growth 12/24/2020 blood culture: No growth A/P: 60-year-old male with ESRD on PD, Crohn's disease, CHF, gastroesophageal reflux disease was admitted to the hospital with complaints of abdominal pain and fever: #Severe sepsis: Secondary to small bowel obstruction/necrotic bowel with concern for PD associated peritonitis. #Small bowel obstruction/necrotic bowel: with concern for PD associated peritonitis: Nephrology and general surgery following. Status post exploratory laparotomy with extensive lysis, primary anastomosis, had necrotic segment of small bowel. #Gram-positive cocci bacteremia and GNR bacteremia: secondary to above. #ESRD: Renally dose antibiotics. Now on HD. #Elevated LFTs: Monitor.-Secondary to sepsis. #Acute respiratory failure: On the vent Recs: Continue cefepime, Flagyl, fluconazole, vancomycin renally dosed Follow-up blood cultures Yesika Denny MD, FACP [facility] ([facility] O: [phone] F: [phone] Subjective Date of service: 12/26/20 Principal diagnosis: Ac hypoxemic resp failure; Severe Sepsis; Peritonitis; Acute SBO; ESRD; CHF Interval history: Fever spike of 103.3 F on 12/25/2020 at midnight, none today. Blood cultures with GPC and GNR. Objective - Exam Narrative Exam: Physical Exam: Constitutional: sedated, intubated, on the vent Head, Ears, Nose: Normocephalic, atraumatic. External ears, nose normal Eyes: Conjunctivae/corneas clear. No icterus. No ptosis. Neck: intubated Oral: intubated Cardiovascular: S1, S2 + Respiratory: AE fair bilaterally and equal GI: Midline incision, PD catheter present bowel sounds hypoactive Musculoskeletal: No pedal edema, no cyanosis. Skin: No rash or abscess Hem/Lymphatic: No palpable cervical or supraclavicular nodes. No lymphangitis Psych: no agitation Neurological: sedated, intubated, on the vent, exam limited - Constitutional Vitals: Vital Signs Temp Pulse Resp BP Pulse Ox 99.2 F 86 14 121/64 95 12/26/20 04:00 12/26/20 11:51 12/26/20 11:51 12/26/20 11:51 12/26/20 11:51 Temperature -Last 24 Hours Temperature 99.2 F Temperature 99.8 F Temperature 97.6 F Temperature 100.2 F - Labs CBC & Chem 7: 12/26/20 04:46 12/25/20 04:00 Labs: Abnormal lab results 12/26/20 12/26/20 Range/Units 04:46 Unknown WBC 4.1 L (4.5-11.0) K/mm3 RBC 2.61 L (3.65-5.03) M/mm3 Hgb 7.8 L (11.8-15.2) gm/dl Hct 23.4 L (35.5-45.6) % RDW 17.1 H (13.2-15.2) % Plt Count 119 L (140-440) K/mm3 Lymph % (Auto) 5.3 L (13.4-35.0) % [place] % (Auto) 10.6 H (0.0-7.3) % Lymph # (Auto) 0.2 L (1.2-5.4) K/mm3 Seg Neutrophils % 78.8 H (40.0-70.0) % ABG pH 7.333 L (7.350-7.450) pH Units ABG Base Excess -2.4 L (-2.0-3.0) mmol/L ABG Hemoglobin 6.8 L (14.0-18.0) gm/dl Oxyhemoglobin 93.0 L (95.0-99.0) %
--- NOTE | 2020-12-26 13:43 | Event Note ---
Date: 12/26/20 npo status placed order for permcath tomorrow to allow for 48 hrs of blood cultures ngtd plan for permcath tomorrow order vein mapping of the upper extremities
[2020-12-26] MEDS: MORPHINE 2 MG/1 ML INJ IV PRN ×2 (15:05→20:47)
--- NOTE | 2020-12-26 16:33 | Progress Note ---
Assessment and Plan Acute hypoxemic respiratory failure, on mechanical ventilatory support. Severe Sepsis Peritonitis Acute small-bowel obstruction with tissue necrosis. End-stage renal disease, on dialysis. Hypertension. Crohn's disease. Gastroesophageal reflux disease. Heart failure with reduced ejection fraction. Hyperkalemia. Anemia that is normocytic. Lactic acidosis. Oropharyngeal dysphagia - to begin parenteral nutrition - discontinue saravia catheter - reduced set rate to 12/min - continue Benadryl & BID Pepcid re: Angioedema / macroglossia (much better) - continue to hold on steroids for now re: wound healing issues - continue care as below otherwise; - continue Daily SAT and SBT assessment as tolerated - continue to wean supplemental oxygen for target O2 sat's > 92% acutely - VAP bundle addressed - continue lung protective strategies - continue bronchodilators with pulmonary hygiene per RT - wean per pulmonary driven protocols otherwise - HD/UF per nephrology prescription for toxin and volume control - avoid nephrotoxins, renally dose all medications - continue accuchecks with glycemic control per SSI (While critically ill target blood glucose of 140-180 mg/dL; avoid hypoglycemia) - sedation prn for target RASS 0 to -1 - continue to avoid benzodiazepine's, reduce the possibility of delirium - complete AB's per ID rec's - prn analgesia per CPOT score - Maintenance of sleep-wake cycle, avoid delirium - enteral nutritional support at goal rate as tolerated (once cleared by surgeon) - G.I. & VTE prophylaxis - PT/OT/ROM exercises - continue mobility protocols for pressure ulcer prophylaxis - Monitor hemodynamics closely - continue other care per attending / other consultants - discharge planning ongoing concurrently COVID SPECIFIC INTERVENTIONS - Remdesivir as per ID/Pulmonary developed protocols - consider systemic steroids for severe COVID-19 infection empirically - follow repeat COVID tests results - zinc and vitamin C supplementation - Monitor inflammatory markers per facility protocol - ferritin, Ddimer, CRP - therapeutic anticoagulation per system Protocol based on d-dimer and clinical considerations - Continue contact and airborne isolation .... Re-evaluate in am & prn CONDITION: CRITICAL PROGNOSIS: GUARDED CODE STATUS: FULL CODE The high probability of a clinically significant, sudden or life-threatening deterioration of the [respiratory, cardiovascular, GI & neurologic] system(s) required my full and direct attention, intervention and personal management. The aggregate critical care time was [36] minutes without overlap. Time includes spent on; [x] Data Review and interpretation [x] Patient assessment and monitoring of vital signs [x] Documentation [x] Medication orders and management Subjective Date of service: 12/26/20 Principal diagnosis: Ac hypoxemic resp failure; Severe Sepsis; Peritonitis; Acute SBO; ESRD; CHF Interval history: Patient is seen today for: Ac hypoxemic resp failure; Severe Sepsis; Peritonitis; Acute SBO; ESRD on Dialysis; HTN; Crohn's disease; HFrEF Seen and examined at bedside; 24hour events reviewed; nursing and respiratory care staff consulted; no adverse overnight events reported to me; resting in bed; tentatively for permacath tomorrow; nods head appropriately; just received analgesia; no emesis or overt aspiration; failed SBT this morning Objective Vital Signs - 12hr 12/26/20 12/26/20 12/26/20 04:40 04:50 05:00 Temperature Pulse Rate 91 H 92 H 89 Pulse Rate [ From Monitor] Respiratory 14 14 14 Rate Blood Pressure 130/67 130/67 121/63 O2 Sat by Pulse 95 95 95 Oximetry O2 Sat by Pulse Oximetry [ Anterior Bilateral Throughout] 12/26/20 12/26/20 12/26/20 05:10 05:20 05:30 Temperature Pulse Rate 90 88 88 Pulse Rate [ From Monitor] Respiratory 14 14 14 Rate Blood Pressure 121/63 121/63 121/63 O2 Sat by Pulse 95 95 95 Oximetry O2 Sat by Pulse Oximetry [ Anterior Bilateral Throughout] 12/26/20 12/26/20 12/26/20 05:40 05:50 06:00 Temperature Pulse Rate 88 90 97 H Pulse Rate [ From Monitor] Respiratory 14 18 14 Rate Blood Pressure 121/63 121/63 135/79 O2 Sat by Pulse 95 95 95 Oximetry O2 Sat by Pulse Oximetry [ Anterior Bilateral Throughout] 12/26/20 12/26/20 12/26/20 06:10 06:20 06:30 Temperature Pulse Rate 91 H 97 H 91 H Pulse Rate [ From Monitor] Respiratory 14 15 14 Rate Blood Pressure 135/79 135/79 135/79 O2 Sat by Pulse 95 95 93 Oximetry O2 Sat by Pulse Oximetry [ Anterior Bilateral Throughout] 12/26/20 12/26/20 12/26/20 06:40 06:50 07:00 Temperature Pulse Rate 90 88 87 Pulse Rate [ From Monitor] Respiratory 14 14 14 Rate Blood Pressure 135/79 135/79 121/66 O2 Sat by Pulse 94 94 94 Oximetry O2 Sat by Pulse Oximetry [ Anterior Bilateral Throughout] 12/26/20 12/26/20 12/26/20 07:10 07:20 07:30 Temperature Pulse Rate 87 88 87 Pulse Rate [ From Monitor] Respiratory 14 14 14 Rate Blood Pressure 121/66 121/66 135/79 O2 Sat by Pulse 95 94 94 Oximetry O2 Sat by Pulse Oximetry [ Anterior Bilateral Throughout] 12/26/20 12/26/20 12/26/20 07:40 07:50 08:00 Temperature Pulse Rate 87 86 86 Pulse Rate [ 96 H From Monitor] Respiratory 14 14 14 Rate Blood Pressure 135/79 135/79 123/68 O2 Sat by Pulse 94 94 95 Oximetry O2 Sat by Pulse Oximetry [ Anterior Bilateral Throughout] 12/26/20 12/26/20 12/26/20 08:10 08:20 08:30 Temperature Pulse Rate 87 87 87 Pulse Rate [ From Monitor] Respiratory 14 14 14 Rate Blood Pressure 123/68 123/68 123/68 O2 Sat by Pulse 94 94 94 Oximetry O2 Sat by Pulse Oximetry [ Anterior Bilateral Throughout] 12/26/20 12/26/20 12/26/20 08:39 08:40 08:50 Temperature Pulse Rate 92 H 88 91 H Pulse Rate [ From Monitor] Respiratory 14 13 Rate Blood Pressure 123/68 123/68 123/68 O2 Sat by Pulse 95 95 95 Oximetry O2 Sat by Pulse Oximetry [ Anterior Bilateral Throughout] 12/26/20 12/26/20 12/26/20 09:00 09:10 09:20 Temperature Pulse Rate 89 97 H 94 H Pulse Rate [ From Monitor] Respiratory 14 14 14 Rate Blood Pressure 125/70 125/70 125/70 O2 Sat by Pulse 94 94 95 Oximetry O2 Sat by Pulse Oximetry [ Anterior Bilateral Throughout] 12/26/20 12/26/20 12/26/20 09:30 09:40 09:50 Temperature Pulse Rate 93 H 93 H 96 H Pulse Rate [ From Monitor] Respiratory 14 13 14 Rate Blood Pressure 125/70 125/70 125/70 O2 Sat by Pulse 96 96 95 Oximetry O2 Sat by Pulse Oximetry [ Anterior Bilateral Throughout] 12/26/20 12/26/20 12/26/20 10:00 10:10 10:20 Temperature Pulse Rate 95 H 93 H 91 H Pulse Rate [ From Monitor] Respiratory 15 14 14 Rate Blood Pressure 143/74 143/74 143/74 O2 Sat by Pulse 95 95 95 Oximetry O2 Sat by Pulse Oximetry [ Anterior Bilateral Throughout] 12/26/20 12/26/20 12/26/20 10:30 10:40 10:50 Temperature Pulse Rate 91 H 91 H 91 H Pulse Rate [ From Monitor] Respiratory 14 14 14 Rate Blood Pressure 143/74 143/74 143/74 O2 Sat by Pulse 95 95 95 Oximetry O2 Sat by Pulse Oximetry [ Anterior Bilateral Throughout] 12/26/20 12/26/20 12/26/20 11:00 11:10 11:20 Temperature Pulse Rate 89 89 90 Pulse Rate [ From Monitor] Respiratory 14 14 14 Rate Blood Pressure 121/64 121/64 121/64 O2 Sat by Pulse 95 95 95 Oximetry O2 Sat by Pulse Oximetry [ Anterior Bilateral Throughout] 12/26/20 12/26/20 12/26/20 11:30 11:40 11:51 Temperature Pulse Rate 89 87 86 Pulse Rate [ From Monitor] Respiratory 14 14 14 Rate Blood Pressure 121/64 121/64 121/64 O2 Sat by Pulse 95 95 95 Oximetry O2 Sat by Pulse Oximetry [ Anterior Bilateral Throughout] 12/26/20 12/26/20 12/26/20 11:54 12:00 12:02 Temperature 98.5 F 98.6 F Pulse Rate 85 115 H 84 Pulse Rate [ 112 H From Monitor] Respiratory 14 21 Rate Blood Pressure 125/66 125/66 126/68 O2 Sat by Pulse 96 95 Oximetry O2 Sat by Pulse 95 Oximetry [ Anterior Bilateral Throughout] 12/26/20 12/26/20 12/26/20 12:11 12:15 12:21 Temperature Pulse Rate 85 83 89 Pulse Rate [ From Monitor] Respiratory 14 14 Rate Blood Pressure 126/68 127/68 127/68 O2 Sat by Pulse 96 96 Oximetry O2 Sat by Pulse Oximetry [ Anterior Bilateral Throughout] 12/26/20 12/26/20 12/26/20 12:30 12:41 12:45 Temperature Pulse Rate 85 84 81 Pulse Rate [ From Monitor] Respiratory 14 14 Rate Blood Pressure 128/73 128/73 121/68 O2 Sat by Pulse 95 96 Oximetry O2 Sat by Pulse Oximetry [ Anterior Bilateral Throughout] 05/03/21 05/03/21 05/03/21 12:51 13:00 13:11 Temperature Pulse Rate 82 80 81 Pulse Rate [ From Monitor] Respiratory 14 14 14 Rate Blood Pressure 121/68 124/68 124/68 O2 Sat by Pulse 96 96 97 Oximetry O2 Sat by Pulse Oximetry [ Anterior Bilateral Throughout] 12/26/20 12/26/20 12/26/20 13:15 13:21 13:30 Temperature Pulse Rate 82 83 84 Pulse Rate [ From Monitor] Respiratory 11 L 12 Rate Blood Pressure 117/70 117/70 120/70 O2 Sat by Pulse 97 97 Oximetry O2 Sat by Pulse Oximetry [ Anterior Bilateral Throughout] 12/26/20 12/26/20 12/26/20 13:41 13:45 13:51 Temperature Pulse Rate 83 83 83 Pulse Rate [ From Monitor] Respiratory 12 12 Rate Blood Pressure 120/70 115/67 115/67 O2 Sat by Pulse 99 100 Oximetry O2 Sat by Pulse Oximetry [ Anterior Bilateral Throughout] 12/26/20 12/26/20 12/26/20 14:00 14:11 14:15 Temperature Pulse Rate 81 83 80 Pulse Rate [ From Monitor] Respiratory 11 L 12 Rate Blood Pressure 105/68 105/68 112/69 O2 Sat by Pulse 98 100 Oximetry O2 Sat by Pulse Oximetry [ Anterior Bilateral Throughout] 12/26/20 12/26/20 12/26/20 14:21 14:30 14:41 Temperature Pulse Rate 82 86 82 Pulse Rate [ From Monitor] Respiratory 12 12 11 L Rate Blood Pressure 112/69 121/68 121/68 O2 Sat by Pulse 100 100 100 Oximetry O2 Sat by Pulse Oximetry [ Anterior Bilateral Throughout] 12/26/20 12/26/20 12/26/20 14:45 14:51 14:56 Temperature Pulse Rate 101 H 105 H 115 H Pulse Rate [ From Monitor] Respiratory 11 L Rate Blood Pressure 128/81 128/81 150/122 O2 Sat by Pulse 95 Oximetry O2 Sat by Pulse Oximetry [ Anterior Bilateral Throughout] 12/26/20 12/26/20 12/26/20 15:00 15:08 15:11 Temperature 98.3 F Pulse Rate 113 H 108 H 107 H Pulse Rate [ From Monitor] Respiratory 9 L 10 L 8 L Rate Blood Pressure 133/83 135/82 135/82 O2 Sat by Pulse 94 93 Oximetry O2 Sat by Pulse 95 Oximetry [ Anterior Bilateral Throughout] 12/26/20 12/26/2012/26/21 15:21 15:30 15:41 Temperature Pulse Rate 120 H 113 H 108 H Pulse Rate [ From Monitor] Respiratory 12 7 L 6 L Rate Blood Pressure 124/78 134/70 134/70 O2 Sat by Pulse 94 94 95 Oximetry O2 Sat by Pulse Oximetry [ Anterior Bilateral Throughout] 12/26/20 12/26/20 12/26/20 15:51 16:00 16:01 Temperature Pulse Rate 108 H 110 H 105 H Pulse Rate [ From Monitor] Respiratory 7 L 17 Rate Blood Pressure 140/69 140/69 O2 Sat by Pulse 95 94 Oximetry O2 Sat by Pulse Oximetry [ Anterior Bilateral Throughout] 12/26/20 12/26/20 16:11 16:21 Temperature Pulse Rate 103 H 101 H Pulse Rate [ From Monitor] Respiratory 11 L 14 Rate Blood Pressure 134/70 134/70 O2 Sat by Pulse 95 94 Oximetry O2 Sat by Pulse Oximetry [ Anterior Bilateral Throughout] Constitutional: no acute distress, other (elderly male with mildly increased respiratory effort at rest on MVS) Eyes: non-icteric ENT: oropharynx moist, other (ETT 24 cm LEEANN) Neck: supple, no lymphadenopathy, no JVD Effort: mildly labored Ascultation: Bilateral: diminished breath sounds, rhonchi Percussion: Bilateral: not dull Cardiovascular: regular rate and rhythm Gastrointestinal: hypoactive bowel sounds, soft, tender (mild) Integumentary: other (popst surgical changes) Extremities: no cyanosis, no edema, pulses normal, no ischemia or petechiae Neurologic: non-focal exam (grossly), pupils equal and round, other (sedated) Psychiatric: other (unable to assess re: AMS) CBC and BMP: 12/26/20 04:46 12/25/20 04:00 ABG, PT/INR, D-dimer: ABG ABG pH 7.333 pH Units (7.350-7.450) L 12/26/20 Unknown POC ABG pCO2 28.2 mmHg (32.0-48.0) L 12/25/20 03:33 ABG pCO2 44.8 mm Hg 12/26/20 Unknown POC ABG pO2 62.8 mmHg (83-108) L 12/25/20 03:33 ABG pO2 81.9 mm Hg (80.0-90.0) 12/26/20 Unknown POC ABG HCO3 23.8 12/25/20 03:33 ABG O2 Saturation 95.0 % (95.0-99.0) 12/26/20 Unknown PT/INR, D-dimer PT 13.8 Sec. (12.2-14.9) 12/22/20 14:38 INR 1.07 (0.87-1.13) 12/22/20 14:38 Abnormal lab findings: Abnormal Labs 12/22/20 12/22/20 12/22/20 14:38 14:38 14:38 WBC RBC Hgb 11.2 L Hct 35.0 L RDW 16.7 H Plt Count Lymph % (Auto) [place] % (Auto) Lymph # (Auto) Seg Neutrophils % Seg Neuts % (Manual) 94.0 H Lymphocytes % (Manual) 5.0 L Seg Neutrophils # Man Lymphocytes # (Manual) 0.3 L ABG pH POC ABG pCO2 POC ABG pO2 ABG pO2 ABG O2 Saturation ABG Base Excess ABG Hemoglobin ABG Oxyhemoglobin ABG Sodium ABG Potassium ABG Chloride ABG Glucose Oxyhemoglobin Sodium Potassium Carbon Dioxide BUN 58 H Creatinine 13.2 H Glucose 113 H Lactic Acid 3.60 H* Calcium Phosphorus Total Bilirubin 1.30 H AST ALT Alkaline Phosphatase 155 H Total Protein Albumin Arterial Blood Glucose Arterial Blood Ionized Calcium Crossmatch 12/22/20 12/22/20 12/23/20 16:26 17:47 05:22 WBC RBC Hgb Hct RDW Plt Count Lymph % (Auto) [place] % (Auto) Lymph # (Auto) Seg Neutrophils % Seg Neuts % (Manual) Lymphocytes % (Manual) Seg Neutrophils # Man Lymphocytes # (Manual) ABG pH POC ABG pCO2 POC ABG pO2 ABG pO2 ABG O2 Saturation ABG Base Excess ABG Hemoglobin ABG Oxyhemoglobin ABG Sodium ABG Potassium ABG Chloride ABG Glucose Oxyhemoglobin Sodium Potassium Carbon Dioxide BUN Creatinine Glucose Lactic Acid 2.80 H* 3.10 H* 2.30 H* Calcium Phosphorus Total Bilirubin AST ALT Alkaline Phosphatase Total Protein Albumin Arterial Blood Glucose Arterial Blood Ionized Calcium Crossmatch 12/23/20 12/23/20 12/23/20 05:22 05:22 06:35 WBC 12.1 H RBC Hgb 11.0 L Hct 33.7 L RDW 16.9 H Plt Count Lymph % (Auto) [place] % (Auto) Lymph # (Auto) Seg Neutrophils % Seg Neuts % (Manual) 93.0 H Lymphocytes % (Manual) 1.0 L Seg Neutrophils # Man 11.3 H Lymphocytes # (Manual) 0.1 L ABG pH POC ABG pCO2 POC ABG pO2 ABG pO2 ABG O2 Saturation ABG Base Excess ABG Hemoglobin ABG Oxyhemoglobin ABG Sodium ABG Potassium ABG Chloride ABG Glucose Oxyhemoglobin Sodium Potassium 5.7 H D Carbon Dioxide BUN 73 H Creatinine 14.2 H Glucose Lactic Acid 2.30 H* Calcium 7.9 L Phosphorus Total Bilirubin 1.40 H AST 119 H ALT 130 H Alkaline Phosphatase 183 H Total Protein 6.1 L Albumin 3.6 L Arterial Blood Glucose Arterial Blood Ionized Calcium Crossmatch 12/23/20 12/23/20 12/23/20 11:40 13:53 16:47 WBC RBC Hgb 10.0 L Hct 30.4 L RDW Plt Count Lymph % (Auto) [place] % (Auto) Lymph # (Auto) Seg Neutrophils % Seg Neuts % (Manual) Lymphocytes % (Manual) Seg Neutrophils # Man Lymphocytes # (Manual) ABG pH POC ABG pCO2 POC ABG pO2 137.5 H ABG pO2 ABG O2 Saturation ABG Base Excess ABG Hemoglobin 9.7 L ABG Oxyhemoglobin ABG Sodium 134.1 L ABG Potassium 6.6 H ABG Chloride ABG Glucose 103 H Oxyhemoglobin Sodium Potassium Carbon Dioxide BUN Creatinine Glucose Lactic Acid Calcium Phosphorus Total Bilirubin AST ALT Alkaline Phosphatase Total Protein Albumin Arterial Blood Glucose 103 H Arterial Blood Ionized Calcium 3.8 L Crossmatch See Detail 12/23/20 12/23/20 12/24/20 20:35 20:40 01:20 WBC RBC Hgb Hct RDW Plt Count Lymph % (Auto) [place] % (Auto) Lymph # (Auto) Seg Neutrophils % Seg Neuts % (Manual) Lymphocytes % (Manual) Seg Neutrophils # Man Lymphocytes # (Manual) ABG pH 7.252 L POC ABG pCO2 POC ABG pO2 ABG pO2 50.1 L ABG O2 Saturation 81.1 L ABG Base Excess -5.9 L ABG Hemoglobin 12.1 L ABG Oxyhemoglobin ABG Sodium ABG Potassium ABG Chloride ABG Glucose Oxyhemoglobin 78.6 L Sodium 134 L Potassium 6.9 H* D 6.3 H* Carbon Dioxide 18 L 20 L BUN 87 H 91 H Creatinine 15.3 H 15.3 H Glucose 103 H Lactic Acid Calcium 6.9 L 7.5 L Phosphorus Total Bilirubin AST ALT Alkaline Phosphatase Total Protein Albumin Arterial Blood Glucose Arterial Blood Ionized Calcium Crossmatch 12/24/20 12/24/20 12/24/20 04:00 10:29 10:29 WBC RBC 3.49 L Hgb 10.5 L Hct 31.2 L RDW 17.5 H Plt Count 124 L Lymph % (Auto) 3.7 L [place] % (Auto) 9.8 H Lymph # (Auto) 0.2 L Seg Neutrophils % 85.9 H Seg Neuts % (Manual) Lymphocytes % (Manual) Seg Neutrophils # Man Lymphocytes # (Manual) ABG pH POC ABG pCO2 28.1 L POC ABG pO2 ABG pO2 ABG O2 Saturation ABG Base Excess ABG Hemoglobin ABG Oxyhemoglobin ABG Sodium 133.9 L ABG Potassium 5.3 H ABG Chloride 108.0 H ABG Glucose Oxyhemoglobin Sodium Potassium 5.6 H Carbon Dioxide 19 L BUN 99 H Creatinine 16.9 H Glucose 52 L Lactic Acid Calcium 7.6 L Phosphorus Total Bilirubin 3.50 H AST 67 H ALT 71 H Alkaline Phosphatase Total Protein 3.5 L D Albumin 2.1 L Arterial Blood Glucose Arterial Blood Ionized Calcium 4.0 L Crossmatch 12/25/20 12/25/20 12/25/20 03:33 04:00 04:00 WBC 3.8 L RBC 2.90 L Hgb 8.6 L Hct 25.7 L RDW 16.7 H Plt Count 113 L Lymph % (Auto) [place] % (Auto) Lymph # (Auto) Seg Neutrophils % Seg Neuts % (Manual) Lymphocytes % (Manual) Seg Neutrophils # Man Lymphocytes # (Manual) ABG pH 7.544 H POC ABG pCO2 28.2 L POC ABG pO2 62.8 L ABG pO2 ABG O2 Saturation ABG Base Excess ABG Hemoglobin 9.3 L ABG Oxyhemoglobin 93.0 L ABG Sodium 130.3 L ABG Potassium ABG Chloride ABG Glucose 97 H Oxyhemoglobin Sodium Potassium Carbon Dioxide BUN 62 H Creatinine 11.4 H Glucose Lactic Acid Calcium 7.7 L Phosphorus 5.00 H Total Bilirubin AST ALT Alkaline Phosphatase Total Protein Albumin Arterial Blood Glucose 97 H Arterial Blood Ionized Calcium 3.9 L Crossmatch 12/26/20 12/26/20 04:46 Unknown WBC 4.1 L RBC 2.61 L Hgb 7.8 L Hct 23.4 L RDW 17.1 H Plt Count 119 L Lymph % (Auto) 5.3 L [place] % (Auto) 10.6 H Lymph # (Auto) 0.2 L Seg Neutrophils % 78.8 H Seg Neuts % (Manual) Lymphocytes % (Manual) Seg Neutrophils # Man Lymphocytes # (Manual) ABG pH 7.333 L POC ABG pCO2 POC ABG pO2 ABG pO2 ABG O2 Saturation ABG Base Excess -2.4 L ABG Hemoglobin 6.8 L ABG Oxyhemoglobin ABG Sodium ABG Potassium ABG Chloride ABG Glucose Oxyhemoglobin 93.0 L Sodium Potassium Carbon Dioxide BUN Creatinine Glucose Lactic Acid Calcium Phosphorus Total Bilirubin AST ALT Alkaline Phosphatase Total Protein Albumin Arterial Blood Glucose Arterial Blood Ionized Calcium Crossmatch Chest x-ray: image reviewed (no new infiltrate) Allied health notes reviewed: nursing
--- NOTE | 2020-12-26 17:25 | Progress Note ---
Assessment and Plan Assessment and plan: This is a 60-year-old male with ESRD on peritoneal dialysis, Crohn's, hypertension, systolic CHF (EF 35%) who was admitted with sepsis, peritonitis, small bowel obstruction and now has gram-positive cocci bacteremia. Severe sepsis Small bowel obstruction/necrotic bowel s/p ex lap with extensive lysis of adhesions, 2 small bowel resections with primary anastomosis Acute hypoxic respiratory failure Gram-positive cocci bacteremia which speciated out to Streptococcus bovis Gwendolyn albicans in tracheal aspirate from 12/24 ESRD on PD, PermCath to be placed Transaminitis -[facility], surgery, infectious disease, nephrology, vascular surgery consulted, appreciate recommendations -S/p ex lap with extensive expectations, 2 small bowel resections with primary anastomosis with surgery on 12/23 -N.p.o. -TPN -NGT to LIS -IV antibiotics -Pending permacath placement -Tobacco abuse cessation -Mechanical ventilation, VAP bundle, wean as tolerated, CPAP trials -Transition to hemodialysis, MWF or as needed as tolerated -Trend CBC, CMP, mag, Phos DVT/GI prophylaxis: PPI, heparin subcu, SCDs to bilateral lower extremities while in bed Disposition: ICU Critical care statement The high probability of a clinically significant, sudden or life threatening deterioration of the [pulmonary, cardiac, neuro, renal] system(s) required my full and direct attention, intervention and personal management. The aggregate critical care time was [65] minutes. This time is in addition to time spent performing reported procedures but includes the following: [x] Data Review and interpretation [x] Patient assessment and monitoring of vital signs [x] Documentation [x] Medication orders and management History Interval history: This is a 60 YO Male with ESRD on PD, GERD, Crohn's Disease, Nicotine Dependence, HTN, Systolic CHF(EF 35%) who presented to the emergency department on 12/22 with complaints of abdominal pain which began shortly after eating fast food rated 10/10 which is periumbilical, constant, associated with fever, nausea and multiple sites of vomiting and self-reported inability to undergo PD. In the emergency room patient underwent a CT scan of the abdomen/pelvis which revealed evidence of partial small bowel obstruction, symptoms were consistent with bacterial peritonitis. Patient was admitted to the hospital service with sepsis, peritonitis, and small bowel obstruction with consults to general surgery, nephrology, infectious disease and [facility]. 12/23. Patient had temperature 101.2 F, tachycardia and elevated lactic acid on admission. Meet sepsis criteria. Started on IV antibiotics. ID has been consulted. Surgery consulted this a.m.-advised laparoscopy. He remains on NG tube connected to suction. 12/24. Patient was noted to have peritonitis yesterday and patient undergoing exploratory laparotomy. Patient remained intubated after procedure and is in ICU. Now on broad-spectrum antibiotics. ID on board. 12/25. Remains mechanically ventilated and sedated. Temp 103 Fahrenheit. Antibiotics broadened-ID added fluconazole and Flagyl. Blood cultures ordered. Plan to repeat CT abdomen tomorrow if not better. Surgery following. 12/26: Patient remains on mechanical ventilation on CMV tidal line 550, rate of 14, PEEP of 8 and 30% FiO2 and sedated on fentanyl 4 micrograms. Today we will remove his Jeffery and CCM dropped his rate controlled him on CPAP. We will trend CBC given recent drop in H/H. Hospitalist Physical - Constitutional Vitals: Temp Pulse Resp BP Pulse Ox 98.3 F 101 H 14 134/70 94 12/26/20 15:08 12/26/20 16:21 12/26/20 16:21 12/26/20 16:21 12/26/20 16:21 General appearance: Present: mild distress, other (sedated) - EENT Eyes: Present: PERRL ENT: poor dentition - Neck Neck: Present: normal ROM - Respiratory Respiratory effort: normal Respiratory: bilateral: CTA, diminished - Cardiovascular Rhythm: regular Heart Sounds: Present: S1 & S2. Absent: systolic murmur, diastolic murmur - Extremities Extremities: no ischemia, pulses intact, pulses symmetrical, No edema, normal temperature, normal color Peripheral Pulses: within normal limits - Abdominal General gastrointestinal: soft, non-tender, non-distended, normal bowel sounds - Integumentary Integumentary: Present: warm, dry - Psychiatric Psychiatric: other (sedated) - Neurologic Neurologic: other (sedated) - Allied Health Allied health notes reviewed: nursing, RT HEART Score - HEART Score Troponin: Troponin T 0.021 ng/mL (0.00-0.029) 12/22/20 14:38 Results - Labs CBC & Chem 7: 12/26/20 04:46 12/25/20 04:00 Labs: Laboratory Last Values WBC 4.1 K/mm3 (4.5-11.0) L 12/26/20 04:46 RBC 2.61 M/mm3 (3.65-5.03) L 12/26/20 04:46 Hgb 7.8 gm/dl (11.8-15.2) L 12/26/20 04:46 Hct 23.4 % (35.5-45.6) L 12/26/20 04:46 MCV 90 fl (84-94) 12/26/20 04:46 MCH 30 pg (28-32) 12/26/20 04:46 MCHC 33 % (32-34) 12/26/20 04:46 RDW 17.1 % (13.2-15.2) H 12/26/20 04:46 Plt Count 119 K/mm3 (140-440) L 12/26/20 04:46 Lymph % (Auto) 5.3 % (13.4-35.0) L 12/26/20 04:46 Rock % (Auto) 10.6 % (0.0-7.3) H 12/26/20 04:46 Eos % (Auto) 3.5 % (0.0-4.3) 12/26/20 04:46 Baso % (Auto) 1.8 % (0.0-1.8) 12/26/20 04:46 Lymph # (Auto) 0.2 K/mm3 (1.2-5.4) L 12/26/20 04:46 Rock # (Auto) 0.4 K/mm3 (0.0-0.8) 12/26/20 04:46 Eos # (Auto) 0.1 K/mm3 (0.0-0.4) 12/26/20 04:46 Baso # (Auto) 0.1 K/mm3 (0.0-0.1) 12/26/20 04:46 Add Manual Diff Complete 12/23/20 05:22 Total Counted 100 12/23/20 05:22 Seg Neutrophils % 78.8 % (40.0-70.0) H 12/26/20 04:46 Seg Neuts % (Manual) 93.0 % (40.0-70.0) H 12/23/20 05:22 Band Neutrophils % 4.0 % 12/23/20 05:22 Lymphocytes % (Manual) 1.0 % (13.4-35.0) L 12/23/20 05:22 Monocytes % (Manual) 2.0 % (0.0-7.3) 12/23/20 05:22 Nucleated RBC % Not Reportable 12/23/20 05:22 Seg Neutrophils # 3.2 K/mm3 (1.8-7.7) 12/26/20 04:46 Seg Neutrophils # Man 11.3 K/mm3 (1.8-7.7) H 12/23/20 05:22 Band Neutrophils # 0.5 K/mm3 12/23/20 05:22 Lymphocytes # (Manual) 0.1 K/mm3 (1.2-5.4) L 12/23/20 05:22 Abs React Lymphs (Man) 0.0 K/mm3 12/23/20 05:22 Monocytes # (Manual) 0.2 K/mm3 (0.0-0.8) 12/23/20 05:22 Eosinophils # (Manual) 0.0 K/mm3 (0.0-0.4) 12/23/20 05:22 Basophils # (Manual) 0.0 K/mm3 (0.0-0.1) 12/23/20 05:22 Metamyelocytes # 0.0 K/mm3 12/23/20 05:22 Myelocytes # 0.0 K/mm3 12/23/20 05:22 Promyelocytes # 0.0 K/mm3 12/23/20 05:22 Blast Cells # 0.0 K/mm3 12/23/20 05:22 WBC Morphology Not Reportable 12/23/20 05:22 Hypersegmented Neuts Not Reportable 12/23/20 05:22 Hyposegmented Neuts Not Reportable 12/23/20 05:22 Hypogranular Neuts Not Reportable 12/23/20 05:22 Smudge Cells Not Reportable 12/23/20 05:22 Toxic Granulation Not Reportable 12/23/20 05:22 Toxic Vacuolation Not Reportable 12/23/20 05:22 Dohle Bodies Not Reportable 12/23/20 05:22 Pelger-Huet Anomaly Not Reportable 12/23/20 05:22 Lamar Rods Not Reportable 12/23/20 05:22 Platelet Estimate Consistent w auto 12/23/20 05:22 Clumped Platelets Not Reportable 12/23/20 05:22 Plt Clumps, EDTA Not Reportable 12/23/20 05:22 Large Platelets Not Reportable 12/23/20 05:22 Giant Platelets Not Reportable 12/23/20 05:22 Platelet Satelliting Not Reportable 12/23/20 05:22 Plt Morphology Comment Not Reportable 12/23/20 05:22 RBC Morphology Not Reportable 12/23/20 05:22 Dimorphic RBCs Not Reportable 12/23/20 05:22 Polychromasia Not Reportable 12/23/20 05:22 Hypochromasia Not Reportable 12/23/20 05:22 Poikilocytosis Not Reportable 12/23/20 05:22 Anisocytosis 1+ 12/23/20 05:22 Microcytosis Not Reportable 12/23/20 05:22 Macrocytosis Not Reportable 12/23/20 05:22 Spherocytes Not Reportable 12/23/20 05:22 Pappenheimer Bodies Not Reportable 12/23/20 05:22 Sickle Cells Not Reportable 12/23/20 05:22 Target Cells Not Reportable 12/23/20 05:22 Tear Drop Cells Not Reportable 12/23/20 05:22 Ovalocytes Not Reportable 12/23/20 05:22 Helmet Cells Not Reportable 12/23/20 05:22 [place]-Riesel Bodies Not Reportable 12/23/20 05:22 [place] Rings Not Reportable 12/23/20 05:22 Jenny Cells Not Reportable 12/23/20 05:22 Bite Cells Not Reportable 12/23/20 05:22 Crenated Cell Not Reportable 12/23/20 05:22 Elliptocytes Not Reportable 12/23/20 05:22 Acanthocytes (Spur) Not Reportable 12/23/20 05:22 Rouleaux Not Reportable 12/23/20 05:22 Hemoglobin C Crystals Not Reportable 12/23/20 05:22 Schistocytes Not Reportable 12/23/20 05:22 Malaria parasites Not Reportable 12/23/20 05:22 Lucas Bodies Not Reportable 12/23/20 05:22 Hem Pathologist Commnt No 12/23/20 05:22 PT 13.8 Sec. (12.2-14.9) 12/22/20 14:38 INR 1.07 (0.87-1.13) 12/22/20 14:38 APTT 25.1 Sec. (24.2-36.6) 12/22/20 14:38 ABG pH 7.333 pH Units (7.350-7.450) L 12/26/20 Unknown POC ABG pCO2 28.2 mmHg (32.0-48.0) L 12/25/20 03:33 ABG pCO2 44.8 mm Hg 12/26/20 Unknown POC ABG pO2 62.8 mmHg (83-108) L 12/25/20 03:33 ABG pO2 81.9 mm Hg (80.0-90.0) 12/26/20 Unknown POC ABG HCO3 23.8 12/25/20 03:33 ABG HCO3 23.3 mmol/L (20.0-26.0) 12/26/20 Unknown ABG O2 Saturation 95.0 % (95.0-99.0) 12/26/20 Unknown ABG O2 Content 9.0 (0.0-44) 12/26/20 Unknown POC ABG Base Excess 1.8 12/25/20 03:33 ABG Base Excess -2.4 mmol/L (-2.0-3.0) L 12/26/20 Unknown ABG Hemoglobin 6.8 gm/dl (14.0-18.0) L 12/26/20 Unknown ABG Oxyhemoglobin 93.0 (94-98) L 12/25/20 03:33 ABG Carboxyhemoglobin 1.5 % (0.0-5.0) 12/26/20 Unknown ABG Methemoglobin 0.6 % (0.0-1.5) 12/26/20 Unknown ABG Sodium 130.3 mmol/L (136.0-145.0) L 12/25/20 03:33 ABG Potassium 4.3 mmol/L (3.40-4.50) 12/25/20 03:33 ABG Chloride 104.0 mmol/L (98-107) 12/25/20 03:33 ABG Glucose 97 mg/dL (65-95) H 12/25/20 03:33 Oxyhemoglobin 93.0 % (95.0-99.0) L 12/26/20 Unknown Carboxyhemoglobin 0.8 (0.5-1.5) 12/25/20 03:33 FiO2 30 % 12/26/20 Unknown FiO2 % 40.0 12/25/20 03:33 Sodium 138 mmol/L (137-145) 12/25/20 04:00 Potassium 4.5 mmol/L (3.6-5.0) 12/25/20 04:00 Chloride 103.4 mmol/L (98-107) 12/25/20 04:00 Carbon Dioxide 26 mmol/L (22-30) D 12/25/20 04:00 Anion Gap 13 mmol/L 12/25/20 04:00 BUN 62 mg/dL (9-20) H 12/25/20 04:00 Creatinine 11.4 mg/dL (0.8-1.3) H 12/25/20 04:00 Estimated GFR 6 ml/min 12/25/20 04:00 BUN/Creatinine Ratio 5 % 12/25/20 04:00 Glucose 95 mg/dL (75-100) 12/25/20 04:00 POC Glucose 94 mg/dL (70-105) 12/26/20 14:55 Lactic Acid 1.40 mmol/L (0.7-2.0) 12/24/20 15:06 Calcium 7.7 mg/dL (8.4-10.2) L 12/25/20 04:00 Phosphorus 5.00 mg/dL (2.5-4.5) H 12/25/20 04:00 Magnesium 1.80 mg/dL (1.7-2.3) 12/25/20 04:00 Total Bilirubin 3.50 mg/dL (0.1-1.2) H 12/24/20 10:29 AST 67 units/L (5-40) H 12/24/20 10:29 ALT 71 units/L (7-56) H 12/24/20 10:29 Alkaline Phosphatase 109 units/L (35-129) 12/24/20 10:29 Ammonia 30.0 umol/L (25-60) 12/22/20 14:38 Troponin T 0.021 ng/mL (0.00-0.029) 12/22/20 14:38 Total Protein 3.5 g/dL (6.3-8.2) L D 12/24/20 10:29 Albumin 2.1 g/dL (3.9-5) L 12/24/20 10:29 Albumin/Globulin Ratio 1.5 % 12/24/20 10:29 Lipase 41 units/L (13-60) 12/22/20 14:38 Procalcitonin > 200.00 ng/mL (<0.15) 12/24/20 15:06 Arterial Blood Glucose 97 mg/dL (65-95) H 12/25/20 03:33 Arterial Blood Ionized Calcium 3.9 mg/dL (4.6-5.3) L 12/25/20 03:33 Urine Color Yellow (Yellow) 12/22/20 18:53 Urine Turbidity Clear (Clear) 12/22/20 18:53 Urine pH 7.0 (5.0-7.0) 12/22/20 18:53 Ur Specific [place] 1.012 (1.003-1.030) 12/22/20 18:53 Urine Protein >500 mg/dL (Negative) 12/22/20 18:53 Urine Glucose (UA) Neg mg/dL (Negative) 12/22/20 18:53 Urine Ketones Neg mg/dL (Negative) 12/22/20 18:53 Urine Blood Neg (Negative) 12/22/20 18:53 Urine Nitrite Neg (Negative) 12/22/20 18:53 Urine Bilirubin Neg (Negative) 12/22/20 18:53 Urine Urobilinogen < 2.0 mg/dL (<2.0) 12/22/20 18:53 Ur Leukocyte Esterase Neg (Negative) 12/22/20 18:53 Urine WBC (Auto) < 1.0 /HPF (0.0-6.0) 12/22/20 18:53 Urine RBC (Auto) 1.0 /HPF (0.0-6.0) 12/22/20 18:53 Fluid Type Dialysate 12/22/20 Unknown Fluid Color Colorless 12/22/20 Unknown Fluid Appearance Cloudy 12/22/20 Unknown Fluid WBC 208 /mm3 12/22/20 Unknown Fluid RBC 45 /mm3 12/22/20 Unknown Fluid Seg Neutrophils 82.0 % 12/22/20 Unknown Fluid Lymphocytes 11.0 % 12/22/20 Unknown Fluid Reactive Lymphs 0 % 12/22/20 Unknown Fluid Monocytes 7.0 % 12/22/20 Unknown Fluid Eosinophils 0 % 12/22/20 Unknown Fluid Basophils 0 % 12/22/20 Unknown Random Vancomycin 13.7 ug/mL (0-40.0) 12/26/20 Unknown Hepatitis A IgM Ab Non-reactive (NonReactive) 12/23/20 11:38 Hep Bs Antigen Non-reactive (Negative) 12/23/20 11:38 Hep B Core IgM Ab Non-reactive (NonReactive) 12/23/20 11:38 Hepatitis C Antibody Non-reactive (NonReactive) 12/23/20 11:38 Blood Type A POSITIVE 12/23/20 11:40 Antibody Screen Negative 12/23/20 11:40 Crossmatch See Detail 12/23/20 11:40 Microbiology: Microbiology 12/24/20 14:24 Tracheal Aspirate Sputum Culture - Final Gwendolyn Albicans 12/22/20 Unknown Peritioneal Dialysate Peritoneal Dialysate Culture - Pr eliminary 12/22/20 14:38 Peripheral/Venous Blood Culture - Preliminary Streptococcus Bovis 12/24/20 23:11 Peripheral/Venous Blood Culture - Preliminary NO GROWTH AFTER 24 HOURS 12/24/20 23:11 Peripheral/Venous Blood Culture - Preliminary NO GROWTH AFTER 24 HOURS Jeffery/IV: Voiding Method Incontinent Active Medications - Current Medications Current Medications: Generic Name Dose Route Start Last Admin Trade Name Freq PRN Reason Stop Dose Admin Albumin Human 25 gm 12/25/20 11:00 12/26/20 10:04 Albumin Human 25% (25 Gm/100 Ml) Inj IV 12/27/20 22:01 25 gm Q12HR THOMAS Administration Albuterol 2.5 mg 12/22/20 19:42 Albuterol 2.5 Mg/3 Ml Nebu IH Q4HRT PRN Shortness Of Breath Diphenhydramine HCl 25 mg 12/25/20 20:00 12/26/20 13:33 Diphenhydramine 50 Mg/Ml Vial IV 01/01/21 19:59 25 mg Q8H THOMAS Administration Famotidine 10 mg 12/24/20 13:00 12/26/20 10:04 Famotidine 20 Mg/2 Ml Inj IV 10 mg BID THOMAS Administration Fentanyl 50 mcg 12/24/20 11:35 Fentanyl 100 Mcg/2 Ml Inj IV Q10MIN PRN ANALGESIA Heparin Sodium (Porcine) 5,000 unit 12/24/20 10:00 12/26/20 10:04 Heparin 5,000 Unit/1 Ml Vial SUB-Q 5,000 unit Q12HR THOMAS Administration Hydrophilic Ointment 1 applic 12/24/20 12:03 Lip Therapy Vaseline TP Q2H PRN Dry Lips Sodium Chloride 100 mls @ 999 mls/hr 12/23/20 11:03 Nacl 0.9% IV RYLAND PRN Hypotension Propofol 1,000 mg in 100 mls @ 5.484 mls/hr 12/23/20 19:00 12/24/20 18:54 Diprivan 10 Mg/Ml IV 0 mcg/kg/min TITR THOMAS 0 mls/hr Titration Protocol 10 MCG/KG/MIN Fentanyl Citrate 2,000 mcg in 100 mls @ 4.57 mls/hr 12/24/20 12:00 12/26/20 15:35 Fentanyl Drip Premix IV 4 mcg/kg/hr TITR THOMAS 18.28 mls/hr Administration Protocol 1 MCG/KG/HR Metronidazole 500 mg in 100 mls @ 100 mls/hr 12/25/20 14:00 12/26/20 16:37 Flagyl 500 Mg/100 Ml IV 100 mls/hr Q8HR [facility] Administration Protocol Cefepime HCl 2 gm in 100 mls @ 200 mls/hr 12/26/20 11:00 12/26/20 10:27 Cefepime/Ns 2 Gm/100 Ml IV 200 mls/hr Q24H [facility] Administration Protocol Amino Acids/Electrolytes/Dextrose 1,560 mls @ 65 mls/hr 12/26/20 20:00 Tpn Adult IV 12/27/20 19:59 DAILY@2000 [facility] Protocol Vancomycin HCl 1,500 mg/ 530 mls @ 333.333 mls/hr 12/26/20 22:00 Sodium Chloride IV 12/26/20 23:35 ONCE ONE Morphine Sulfate 2 mg 12/23/20 10:00 12/26/20 15:05 Morphine 2 Mg/1 Ml Inj IV 2 mg Q4H PRN Administration Pain, Moderate (4-6) Multi-Ingred Cream/Lotion/Oil/Oint 1 applic 12/24/20 12:03 Mineral Oil/Petrolatum, White Ophth Oint 3.5 Gm OU Q4H PRN Dry Eye(s) Nystatin 1 applic 12/23/20 11:00 12/26/20 10:05 Nystatin Cream 15 Gm Tube TP 1 applic DAILY THOMAS Administration Ondansetron HCl 4 mg 12/22/20 19:42 Ondansetron 4 Mg/2 Ml Inj IV Q8H PRN Nausea And Vomiting Sodium Chloride 10 ml 12/22/20 22:00 12/26/20 10:05 Sodium Chloride 0.9% 10 Ml Flush Syringe IV 10 ml BID THOMAS Administration Sodium Chloride 10 ml 12/22/20 19:42 Sodium Chloride 0.9% 10 Ml Flush Syringe IV PRN PRN LINE FLUSH Triamcinolone Acetonide 1 applic 12/23/20 11:00 12/26/20 10:05 Triamcinolone 0.1% Cream 15 Gm TP 1 applic DAILY THOMAS Administration Nutrition/Malnutrition Assess - Dietary Evaluation Nutrition/Malnutrition Findings: Nutrition Notes Start: 12/24/20 12:36 Freq: Status: Active Protocol: Document 12/26/20 08:20 CW (Rec: 12/26/20 08:28 CW [id number]) Nutrition Notes Need for Assessment generated from: MD Order Initial or Follow up Reassessment Current Diagnosis CKD (stage V CKD),Hypertension ,Heart Failure Other Pertinent Diagnosis bacterial peritonitis, on PD, SBO, Crohns disease Current Diet NPO Labs/Tests BUN 62 Cr 11.4 Ca 7.7 Phos 5 Pertinent Medications reviewed Height 5 ft 7 in Weight 89.9 kg [place] Body Weight (kg) 67.27 BMI 31.0 Weight Status Obese Subjective/Other Information MD consult for PN d/t inability to feed for next several days related to 2 SBOs . NGT remains at LIS with high output. pt with central line access. Will initiate CPN. Percent of energy/protein needs met: 0%/0% Burn Absent Trauma Absent Difficulty In Swallowing Skin Integrity/Comment Intact Current % PO Negligible Minimum of two criteria No physical signs of malnutrition #1 Nutrition Diagnosis Inadequate oral intake As Evidenced by Signs and Symptoms SBOs present causing inability to feed via PO or TF Diagnosis Progress(for reassessment Worsened documentation) Is patient on ventilator? Yes Is Patient Ambulatory and/or Out of Bed No REE-([facility]-confined to bed) 1994.028 Kcal/Kg value to use for calculation 17 Approximate Energy Requirements Using 1528 kcal/Kg Additional Notes protein needs: >94 g(>1.2g/ kgAdjBW) fluid needs: 1000 - 1500 ml/ day or per MD order Nutrition Intervention Change Diet Order: Initiate PN Nutrition Support: Initiate CPN regimen: Run CPN at 65 ml/hr. This provides 1062 mOsm Na 75 mEq, K 0 mEq, phos 0 mmol, Mg 8 mEq, Ca 5 mEq, Cl/ CO2 50/50, MVI, thiamine d/c all IVF Kcal 810 Protein (gm) 70 Carbohydrates (gm) 156 Fat (gm) 0 Fluid (mL) 1,560 Goal #1 Meet kcal and protein needs as best as possible Anticipated Discharge Needs: unable to determine at this time Follow-Up By: 12/27/20 Additional Comments F/U for BMP, Mg, and phos labs in AM
--- NOTE | 2020-12-26 17:38 | Progress Note ---
History Interval history: This is a 60 YO Male with ESRD on PD, GERD, Crohn's Disease, Nicotine Dependence, HTN, Systolic CHF(EF 35%) who presented to the emergency department on 12/22 with complaints of abdominal pain which began shortly after eating fast food rated 10/10 which is periumbilical, constant, associated with fever, nausea and multiple sites of vomiting and self-reported inability to undergo PD. In the emergency room patient underwent a CT scan of the abdomen/pelvis which revealed evidence of partial small bowel obstruction, symptoms were consistent with bacterial peritonitis. Patient was admitted to the hospital service with sepsis, peritonitis, and small bowel obstruction with consults to general surgery, nephrology, infectious disease and [facility]. 12/23. Patient had temperature 101.2 F, tachycardia and elevated lactic acid on admission. Meet sepsis criteria. Started on IV antibiotics. ID has been consulted. Surgery consulted this a.m.-advised laparoscopy. He remains on NG tube connected to suction. 12/24. Patient was noted to have peritonitis yesterday and patient undergoing exploratory laparotomy. Patient remained intubated after procedure and is in ICU. Now on broad-spectrum antibiotics. ID on board. 12/25. Remains mechanically ventilated and sedated. Temp 103 Fahrenheit. Antibiotics broadened-ID added fluconazole and Flagyl. Blood cultures ordered. Plan to repeat CT abdomen tomorrow if not better. Surgery following. 12/26: Patient remains on mechanical ventilation on CMV tidal line 550, rate of 14, PEEP of 8 and 30% FiO2 and sedated on fentanyl 4 micrograms. Today we will remove his Jeffery and [facility] dropped his rate controlled him on CPAP. We will trend CBC given recent drop in H/H. Hospitalist Physical - Constitutional Vitals: Temp Pulse Resp BP Pulse Ox 98.3 F 101 H 14 134/70 94 12/26/20 15:08 12/26/20 16:21 12/26/20 16:21 12/26/20 16:21 12/26/20 16:21 General appearance: Present: mild distress HEART Score - HEART Score Troponin: Troponin T 0.021 ng/mL (0.00-0.029) 12/22/20 14:38 Results - Labs CBC & Chem 7: 12/26/20 04:46 12/25/20 04:00 Labs: Laboratory Last Values WBC 4.1 K/mm3 (4.5-11.0) L 05/03/21 04:46 RBC 2.61 M/mm3 (3.65-5.03) L 12/26/20 04:46 Hgb 7.8 gm/dl (11.8-15.2) L 12/26/20 04:46 Hct 23.4 % (35.5-45.6) L 12/26/20 04:46 MCV 90 fl (84-94) 12/26/20 04:46 MCH 30 pg (28-32) 12/26/20 04:46 MCHC 33 % (32-34) 12/26/20 04:46 RDW 17.1 % (13.2-15.2) H 12/26/20 04:46 Plt Count 119 K/mm3 (140-440) L 12/26/20 04:46 Lymph % (Auto) 5.3 % (13.4-35.0) L 12/26/20 04:46 [place] % (Auto) 10.6 % (0.0-7.3) H 12/26/20 04:46 Eos % (Auto) 3.5 % (0.0-4.3) 12/26/20 04:46 Baso % (Auto) 1.8 % (0.0-1.8) 12/26/20 04:46 Lymph # (Auto) 0.2 K/mm3 (1.2-5.4) L 12/26/20 04:46 [place] # (Auto) 0.4 K/mm3 (0.0-0.8) 12/26/20 04:46 Eos # (Auto) 0.1 K/mm3 (0.0-0.4) 12/26/20 04:46 Baso # (Auto) 0.1 K/mm3 (0.0-0.1) 12/26/20 04:46 Add Manual Diff Complete 12/23/20 05:22 Total Counted 100 12/23/20 05:22 Seg Neutrophils % 78.8 % (40.0-70.0) H 12/26/20 04:46 Seg Neuts % (Manual) 93.0 % (40.0-70.0) H 12/23/20 05:22 Band Neutrophils % 4.0 % 12/23/20 05:22 Lymphocytes % (Manual) 1.0 % (13.4-35.0) L 12/23/20 05:22 Monocytes % (Manual) 2.0 % (0.0-7.3) 12/23/20 05:22 Nucleated RBC % Not Reportable 12/23/20 05:22 Seg Neutrophils # 3.2 K/mm3 (1.8-7.7) 12/26/20 04:46 Seg Neutrophils # Man 11.3 K/mm3 (1.8-7.7) H 12/23/20 05:22 Band Neutrophils # 0.5 K/mm3 12/23/20 05:22 Lymphocytes # (Manual) 0.1 K/mm3 (1.2-5.4) L 12/23/20 05:22 Abs React Lymphs (Man) 0.0 K/mm3 12/23/20 05:22 Monocytes # (Manual) 0.2 K/mm3 (0.0-0.8) 12/23/20 05:22 Eosinophils # (Manual) 0.0 K/mm3 (0.0-0.4) 12/23/20 05:22 Basophils # (Manual) 0.0 K/mm3 (0.0-0.1) 12/23/20 05:22 Metamyelocytes # 0.0 K/mm3 12/23/20 05:22 Myelocytes # 0.0 K/mm3 12/23/20 05:22 Promyelocytes # 0.0 K/mm3 12/23/20 05:22 Blast Cells # 0.0 K/mm3 12/23/20 05:22 WBC Morphology Not Reportable 12/23/20 05:22 Hypersegmented Neuts Not Reportable 12/23/20 05:22 Hyposegmented Neuts Not Reportable 12/23/20 05:22 Hypogranular Neuts Not Reportable 12/23/20 05:22 Smudge Cells Not Reportable 12/23/20 05:22 Toxic Granulation Not Reportable 12/23/20 05:22 Toxic Vacuolation Not Reportable 12/23/20 05:22 Dohle Bodies Not Reportable 12/23/20 05:22 Pelger-Huet Anomaly Not Reportable 12/23/20 05:22 Lamar Rods Not Reportable 12/23/20 05:22 Platelet Estimate Consistent w auto 12/23/20 05:22 Clumped Platelets Not Reportable 12/23/20 05:22 Plt Clumps, EDTA Not Reportable 12/23/20 05:22 Large Platelets Not Reportable 12/23/20 05:22 Giant Platelets Not Reportable 12/23/20 05:22 Platelet Satelliting Not Reportable 12/23/20 05:22 Plt Morphology Comment Not Reportable 12/23/20 05:22 RBC Morphology Not Reportable 12/23/20 05:22 Dimorphic RBCs Not Reportable 12/23/20 05:22 Polychromasia Not Reportable 12/23/20 05:22 Hypochromasia Not Reportable 12/23/20 05:22 Poikilocytosis Not Reportable 12/23/20 05:22 Anisocytosis 1+ 12/23/20 05:22 Microcytosis Not Reportable 12/23/20 05:22 Macrocytosis Not Reportable 12/23/20 05:22 Spherocytes Not Reportable 12/23/20 05:22 Pappenheimer Bodies Not Reportable 12/23/20 05:22 Sickle Cells Not Reportable 12/23/20 05:22 Target Cells Not Reportable 12/23/20 05:22 Tear Drop Cells Not Reportable 12/23/20 05:22 Ovalocytes Not Reportable 12/23/20 05:22 Helmet Cells Not Reportable 12/23/20 05:22 [place] Bodies Not Reportable 12/23/20 05:22 [place] Rings Not Reportable 12/23/20 05:22 Jenny Cells Not Reportable 12/23/20 05:22 Bite Cells Not Reportable 12/23/20 05:22 Crenated Cell Not Reportable 12/23/20 05:22 Elliptocytes Not Reportable 12/23/20 05:22 Acanthocytes (Spur) Not Reportable 12/23/20 05:22 Rouleaux Not Reportable 12/23/20 05:22 Hemoglobin C Crystals Not Reportable 12/23/20 05:22 Schistocytes Not Reportable 12/23/20 05:22 Malaria parasites Not Reportable 12/23/20 05:22 Lucas Bodies Not Reportable 12/23/20 05:22 Hem Pathologist Commnt No 12/23/20 05:22 PT 13.8 Sec. (12.2-14.9) 12/22/20 14:38 INR 1.07 (0.87-1.13) 12/22/20 14:38 APTT 25.1 Sec. (24.2-36.6) 12/22/20 14:38 ABG pH 7.333 pH Units (7.350-7.450) L 12/26/20 Unknown POC ABG pCO2 28.2 mmHg (32.0-48.0) L 12/25/20 03:33 ABG pCO2 44.8 mm Hg 12/26/20 Unknown POC ABG pO2 62.8 mmHg (83-108) L 12/25/20 03:33 ABG pO2 81.9 mm Hg (80.0-90.0) 12/26/20 Unknown POC ABG HCO3 23.8 12/25/20 03:33 ABG HCO3 23.3 mmol/L (20.0-26.0) 12/26/20 Unknown ABG O2 Saturation 95.0 % (95.0-99.0) 12/26/20 Unknown ABG O2 Content 9.0 (0.0-44) 12/26/20 Unknown POC ABG Base Excess 1.8 12/25/20 03:33 ABG Base Excess -2.4 mmol/L (-2.0-3.0) L 12/26/20 Unknown ABG Hemoglobin 6.8 gm/dl (14.0-18.0) L 12/26/20 Unknown ABG Oxyhemoglobin 93.0 (94-98) L 12/25/20 03:33 ABG Carboxyhemoglobin 1.5 % (0.0-5.0) 12/26/20 Unknown ABG Methemoglobin 0.6 % (0.0-1.5) 12/26/20 Unknown ABG Sodium 130.3 mmol/L (136.0-145.0) L 12/25/20 03:33 ABG Potassium 4.3 mmol/L (3.40-4.50) 12/25/20 03:33 ABG Chloride 104.0 mmol/L (98-107) 12/25/20 03:33 ABG Glucose 97 mg/dL (65-95) H 12/25/20 03:33 Oxyhemoglobin 93.0 % (95.0-99.0) L 12/26/20 Unknown Carboxyhemoglobin 0.8 (0.5-1.5) 12/25/20 03:33 FiO2 30 % 12/26/20 Unknown FiO2 % 40.0 12/25/20 03:33 Sodium 138 mmol/L (137-145) 12/25/20 04:00 Potassium 4.5 mmol/L (3.6-5.0) 12/25/20 04:00 Chloride 103.4 mmol/L (98-107) 12/25/20 04:00 Carbon Dioxide 26 mmol/L (22-30) D 12/25/20 04:00 Anion Gap 13 mmol/L 12/25/20 04:00 BUN 62 mg/dL (9-20) H 12/25/20 04:00 Creatinine 11.4 mg/dL (0.8-1.3) H 12/25/20 04:00 Estimated GFR 6 ml/min 12/25/20 04:00 BUN/Creatinine Ratio 5 % 12/25/20 04:00 Glucose 95 mg/dL (75-100) 12/25/20 04:00 POC Glucose 94 mg/dL (70-105) 12/26/20 14:55 Lactic Acid 1.40 mmol/L (0.7-2.0) 12/24/20 15:06 Calcium 7.7 mg/dL (8.4-10.2) L 12/25/20 04:00 Phosphorus 5.00 mg/dL (2.5-4.5) H 12/25/20 04:00 Magnesium 1.80 mg/dL (1.7-2.3) 12/25/20 04:00 Total Bilirubin 3.50 mg/dL (0.1-1.2) H 12/24/20 10:29 AST 67 units/L (5-40) H 12/24/20 10:29 ALT 71 units/L (7-56) H 12/24/20 10:29 Alkaline Phosphatase 109 units/L (35-129) 12/24/20 10:29 Ammonia 30.0 umol/L (25-60) 12/22/20 14:38 Troponin T 0.021 ng/mL (0.00-0.029) 12/22/20 14:38 Total Protein 3.5 g/dL (6.3-8.2) L D 12/24/20 10:29 Albumin 2.1 g/dL (3.9-5) L 12/24/20 10:29 Albumin/Globulin Ratio 1.5 % 12/24/20 10:29 Lipase 41 units/L (13-60) 12/22/20 14:38 Procalcitonin > 200.00 ng/mL (<0.15) 12/24/20 15:06 Arterial Blood Glucose 97 mg/dL (65-95) H 12/25/20 03:33 Arterial Blood Ionized Calcium 3.9 mg/dL (4.6-5.3) L 12/25/20 03:33 Urine Color Yellow (Yellow) 12/22/20 18:53 Urine Turbidity Clear (Clear) 12/22/20 18:53 Urine pH 7.0 (5.0-7.0) 12/22/20 18:53 Ur Specific [place] 1.012 (1.003-1.030) 12/22/20 18:53 Urine Protein >500 mg/dL (Negative) 12/22/20 18:53 Urine Glucose (UA) Neg mg/dL (Negative) 12/22/20 18:53 Urine Ketones Neg mg/dL (Negative) 12/22/20 18:53 Urine Blood Neg (Negative) 12/22/20 18:53 Urine Nitrite Neg (Negative) 12/22/20 18:53 Urine Bilirubin Neg (Negative) 12/22/20 18:53 Urine Urobilinogen < 2.0 mg/dL (<2.0) 12/22/20 18:53 Ur Leukocyte Esterase Neg (Negative) 12/22/20 18:53 Urine WBC (Auto) < 1.0 /HPF (0.0-6.0) 12/22/20 18:53 Urine RBC (Auto) 1.0 /HPF (0.0-6.0) 12/22/20 18:53 Fluid Type Dialysate 12/22/20 Unknown Fluid Color Colorless 12/22/20 Unknown Fluid Appearance Cloudy 12/22/20 Unknown Fluid WBC 208 /mm3 12/22/20 Unknown Fluid RBC 45 /mm3 12/22/20 Unknown Fluid Seg Neutrophils 82.0 % 12/22/20 Unknown Fluid Lymphocytes 11.0 % 12/22/20 Unknown Fluid Reactive Lymphs 0 % 12/22/20 Unknown Fluid Monocytes 7.0 % 12/22/20 Unknown Fluid Eosinophils 0 % 12/22/20 Unknown Fluid Basophils 0 % 12/22/20 Unknown Random Vancomycin 13.7 ug/mL (0-40.0) 12/26/20 Unknown Hepatitis A IgM Ab Non-reactive (NonReactive) 12/23/20 11:38 Hep Bs Antigen Non-reactive (Negative) 12/23/20 11:38 Hep B Core IgM Ab Non-reactive (NonReactive) 12/23/20 11:38 Hepatitis C Antibody Non-reactive (NonReactive) 12/23/20 11:38 Blood Type A POSITIVE 12/23/20 11:40 Antibody Screen Negative 12/23/20 11:40 Crossmatch See Detail 12/23/20 11:40 Microbiology: Microbiology 12/24/20 14:24 Tracheal Aspirate Sputum Culture - Final Gwendolyn Albicans 12/22/20 Unknown Peritioneal Dialysate Peritoneal Dialysate Culture - Preliminary 12/22/20 14:38 Peripheral/Venous Blood Culture - Preliminary Streptococcus Bovis 12/24/20 23:11 Peripheral/Venous Blood Culture - Preliminary NO GROWTH AFTER 24 HOURS 12/24/20 23:11 Peripheral/Venous Blood Culture - Preliminary NO GROWTH AFTER 24 HOURS Jeffery/IV: Voiding Method Incontinent Active Medications - Current Medications Current Medications: Generic Name Dose Route Start Last Admin Trade Name Freq PRN Reason Stop Dose Admin Albumin Human 25 gm 12/25/20 11:00 12/26/20 10:04 Albumin Human 25% (25 Gm/100 Ml) Inj IV 12/27/20 22:01 25 gm Q12HR THOMAS Administration Albuterol 2.5 mg 12/22/20 19:42 Albuterol 2.5 Mg/3 Ml Nebu IH Q4HRT PRN Shortness Of Breath Diphenhydramine HCl 25 mg 12/25/20 20:00 12/26/20 13:33 Diphenhydramine 50 Mg/Ml Vial IV 01/01/21 19:59 25 mg Q8H THOMAS Administration Famotidine 10 mg 12/24/20 13:00 12/26/20 10:04 Famotidine 20 Mg/2 Ml Inj IV 10 mg BID THOMAS Administration Fentanyl 50 mcg 12/24/20 11:35 Fentanyl 100 Mcg/2 Ml Inj IV Q10MIN PRN ANALGESIA Heparin Sodium (Porcine) 5,000 unit 12/24/20 10:00 12/26/20 10:04 Heparin 5,000 Unit/1 Ml Vial SUB-Q 5,000 unit Q12HR THOMAS Administration Hydrophilic Ointment 1 applic 12/24/20 12:03 Lip Therapy Vaseline TP Q2H PRN Dry Lips Sodium Chloride 100 mls @ 999 mls/hr 12/23/20 11:03 Nacl 0.9% IV RYLAND PRN Hypotension Propofol 1,000 mg in 100 mls @ 5.484 mls/hr 12/23/20 19:00 12/24/20 18:54 Diprivan 10 Mg/Ml IV 0 mcg/kg/min TITR THOMAS 0 mls/hr Titration Protocol 10 MCG/KG/MIN Fentanyl Citrate 2,000 mcg in 100 mls @ 4.57 mls/hr 12/24/20 12:00 12/26/20 15:35 Fentanyl Drip Premix IV 4 mcg/kg/hr TITR THOMAS 18.28 mls/hr Administration Protocol 1 MCG/KG/HR Metronidazole 500 mg in 100 mls @ 100 mls/hr 12/25/20 14:00 12/26/20 16:37 Flagyl 500 Mg/100 Ml IV 100 mls/hr Q8HR [facility] Administration Protocol Cefepime HCl 2 gm in 100 mls @ 200 mls/hr 12/26/20 11:00 12/26/20 10:27 Cefepime/Ns 2 Gm/100 Ml IV 200 mls/hr Q24H THOMAS Administration Protocol Amino Acids/Electrolytes/Dextrose 1,560 mls @ 65 mls/hr 12/26/20 20:00 Tpn Adult IV 12/27/20 19:59 DAILY@2000 [facility] Protocol Vancomycin HCl 1,500 mg/ 530 mls @ 333.333 mls/hr 12/26/20 22:00 Sodium Chloride IV 12/26/20 23:35 ONCE ONE Morphine Sulfate 2 mg 12/23/20 10:00 12/26/20 15:05 Morphine 2 Mg/1 Ml Inj IV 2 mg Q4H PRN Administration Pain, Moderate (4-6) Multi-Ingred Cream/Lotion/Oil/Oint 1 applic 12/24/20 12:03 Mineral Oil/Petrolatum, White Ophth Oint 3.5 Gm OU Q4H PRN Dry Eye(s) Nystatin 1 applic 12/23/20 11:00 12/26/20 10:05 Nystatin Cream 15 Gm Tube TP 1 applic DAILY THOMAS Administration Ondansetron HCl 4 mg 12/22/20 19:42 Ondansetron 4 Mg/2 Ml Inj IV Q8H PRN Nausea And Vomiting Sodium Chloride 10 ml 12/22/20 22:00 12/26/20 10:05 Sodium Chloride 0.9% 10 Ml Flush Syringe IV 10 ml BID THOMAS Administration Sodium Chloride 10 ml 12/22/20 19:42 Sodium Chloride 0.9% 10 Ml Flush Syringe IV PRN PRN LINE FLUSH Triamcinolone Acetonide 1 applic 12/23/20 11:00 12/26/20 10:05 Triamcinolone 0.1% Cream 15 Gm TP 1 applic DAILY THOMAS Administration Nutrition/Malnutrition Assess - Dietary Evaluation Nutrition/Malnutrition Findings: Nutrition Notes Start: 12/24/20 12:36 Freq: Status: Active Protocol: Document 12/26/20 08:20 CW (Rec: 12/26/20 08:28 CW [id number]) Nutrition Notes Need for Assessment generated from: MD Order Initial or Follow up Reassessment Current Diagnosis CKD (stage V CKD),Hypertension ,Heart Failure Other Pertinent Diagnosis bacterial peritonitis, on PD, SBO, Crohns disease Current Diet NPO Labs/Tests BUN 62 Cr 11.4 Ca 7.7 Phos 5 Pertinent Medications reviewed Height 5 ft 7 in Weight 89.9 kg [place] Body Weight (kg) 67.27 BMI 31.0 Weight Status Obese Subjective/Other Information MD consult for PN d/t inability to feed for next several days related to 2 SBOs . NGT remains at LIS with high output. pt with central line access. Will initiate CPN. Percent of energy/protein needs met: 0%/0% Burn Absent Trauma Absent Difficulty In Swallowing Skin Integrity/Comment Intact Current % PO Negligible Minimum of two criteria No physical signs of malnutrition #1 Nutrition Diagnosis Inadequate oral intake As Evidenced by Signs and Symptoms SBOs present causing inability to feed via PO or TF Diagnosis Progress(for reassessment Worsened documentation) Is patient on ventilator? Yes Is Patient Ambulatory and/or Out of Bed No REE-([place]-confined to bed) 1993.028 Kcal/Kg value to use for calculation 17 Approximate Energy Requirements Using 1528 kcal/Kg Additional Notes protein needs: >94 g(>1.2g/ kgAdjBW) fluid needs: 1000 - 1500 ml/ day or per MD order Nutrition Intervention Change Diet Order: Initiate PN Nutrition Support: Initiate CPN regimen: Run CPN at 65 ml/hr. This provides 1062 mOsm Na 75 mEq, K 0 mEq, phos 0 mmol, Mg 8 mEq, Ca 5 mEq, Cl/ CO2 50/50, MVI, thiamine d/c all IVF Kcal 810 Protein (gm) 70 Carbohydrates (gm) 156 Fat (gm) 0 Fluid (mL) 1,560 Goal #1 Meet kcal and protein needs as best as possible Anticipated Discharge Needs: unable to determine at this time Follow-Up By: 12/27/20 Additional Comments F/U for BMP, Mg, and phos labs in AM
[2020-12-26] MEDS ORDERED: TOTAL PARENTERAL NUTRITION 1,560 ML IV SCH (20:00)
[2020-12-26] MEDS ORDERED: VANCOMYCIN 1,500 MG in SODIUM CHLORIDE 0.9% 500 ML 500 ML IV ONE (22:00)
[2020-12-27] MEDS: MORPHINE 2 MG/1 ML INJ IV PRN (01:36)
[2020-12-27] MEDS: fentaNYL DRIP Premix 2,000 MCG/100 ML BAG IV SCH ×3 (02:41→14:59)
[2020-12-27 04:11] LABS: ABG Base Excess 0.8 mmol/L (-2.0-3.0); ABG HCO3 26.9 mmol/L (20.0-26.0); ABG Methemoglobin 0.5 % (0.0-1.5); ABG PH 7.332 pH Units (7.350-7.450); ABG PO2 81.7 mm Hg (80.0-90.0)
[2020-12-27] MEDS: diphenhydrAMINE 50 MG/ML VIAL IV SCH ×3 (04:53→20:37)
--- NOTE | 2020-12-27 05:11 | Vascular Lab Report ---
BILATERAL UPPER EXTREMITY VENOUS MAPPING DOPPLER ULTRASOUND HISTORY: Upper extremity pain and swelling. COMPARISON: None. TECHNIQUE: Grayscale, color and spectral Doppler imaging of the venous system of both upper extremiti es was performed. FINDINGS: Right Upper Extremity: Internal Jugular Vein: Normal grayscale appearance and flow. Subclavian Vein: Normal grayscale appearance and flow. Axillary Vein: Normal venous flow, compressibility and augmentation. Brachial vein: Normal venous flow, compressibility and augmentation. Proximal: 0.4/0.3 cm Mid: 0.6/0.3 cm Distal: 0.5/0.3 cm Basilic vein: Occlusive thrombus Mid biceps: 0.5 cm Distal biceps: 0.7 cm Antecubital: 0.6 cm Proximal forearm: 0.2 cm Mid forearm: 0.2 cm Distal forearm: 0.2 cm Cephalic vein: Occlusive thrombus Upper: 0.4 cm Mid: 0.4 cm Antecubital: 0.4 cm Forearm: 0.4 cm Wrist: 0.2 cm Left Upper Extremity: Internal Jugular Vein: Normal grayscale appearance and flow. Subclavian Vein: Normal grayscale appearance and flow. Axillary Vein: Normal venous flow, compressibility and augmentation. Brachial vein: Normal venous flow, compressibility and augmentation. Proximal: 1.1/0.7 cm Mid: 0.7/0.5 cm Distal: 0.4/0.3 cm Basilic vein: Normal venous flow, compressibility and augmentation. Mid biceps: 0.6 cm Distal biceps: 0.5 cm Antecubital: 0.3 cm Proximal forearm: 0.2 cm Mid forearm: 0.2 cm Distal forearm: 0.2 cm Cephalic vein: Normal venous flow, compressibility and augmentation. Upper: 0.2 cm Mid: 0.2 cm Antecubital: 0.3 cm Forearm: 0.2 cm Wrist: 0.1 cm Additional Findings: None. IMPRESSION: 1. Superficial venous thrombosis in the right cephalic and basilic veins. 2. No sonographic evidence of deep venous thrombosis in either upper extremity. 3. Upper extremity venous mapping as above. Signer Name: Olivia Sharma MD Signed: 12/27/2020 5:07 AM Workstation Name: [id number]
--- NOTE | 2020-12-27 05:13 | XRay Report ---
CHEST 1 VIEW INDICATION / CLINICAL INFORMATION: follow up respiratory failure. COMPARISON: Chest radiograph one day prior FINDINGS: SUPPORT DEVICES: Stable position of endotracheal tube, enteric tube, and right IJ central venous cath eter. HEART / MEDIASTINUM: Stable. LUNGS / PLEURA: Mild vascular congestion and left basilar opacity are not significantly changed. No p neumothorax. ADDITIONAL FINDINGS: No significant additional findings. IMPRESSION: 1. No significant change. Signer Name: Olivia Sharma MD Signed: 12/27/2020 5:09 AM Workstation Name: [id number]
[2020-12-27] MEDS: metroNIDAZOLE/NS 500 MG/100 ML 500 MG/100 ML BAG IV SCH ×3 (05:54→21:16)
[2020-12-27 06:57] LABS: Basophils % (Auto) 0.1 % (0.0-1.8); Eosinophils # (Auto) 0.1 K/mm3 (0.0-0.4); Hematocrit 22.4 % (35.5-45.6); Hemoglobin 7.4 gm/dl (11.8-15.2); Lymphocytes # (Auto) 0.3 K/mm3 (1.2-5.4); Lymphocytes % (Auto) 6.7 % (13.4-35.0); Mean Corpuscular HGB Conc 33 % (32-34); Mean Corpuscular Volume 90 fl (84-94); Monocytes # (Auto) 0.6 K/mm3 (0.0-0.8); Monocytes % (Auto) 12.6 % (0.0-7.3); Platelet Count 111 K/mm3 (140-440); Red Blood Count 2.49 M/mm3 (3.65-5.03); Red Cell Distribution Width 17.1 % (13.2-15.2)
[2020-12-27 07:22] LABS: Albumin 2.9 g/dL (3.9-5); Calcium 8.3 mg/dL (8.4-10.2)
--- NOTE | 2020-12-27 09:19 | Progress Note ---
Assessment and Plan Assessment: - ESRD on peritoneal dialysis. He has been on peritoneal dialysis for the past 2 years. No history of peritonitis. - Abdominal pain. CT scan without organ perforation. Need to rule out peritonitis, culture negative but remains febrile. - small bowel obstruction s/p exp, necrotic bowel - Hypertension - Hyperkalemia - Anemia of ESRD - Hyperglycemia - severe sepsis - gram positive cocci bacteremia - Postoperative ileus - respiratory failure on vent Plan: - transitioned to HD, continue HD MWF or prn, due tomorrow, no indication for HD today based on lytes, volume - appreciate vascular for permacath placement, pending today - continue IV empiric abx per ID - s/p ex lap, now off PD, will not be able to continue pd with adhesion and sbo s/p resection - uf as tolerated with HD - needs outpatient hd placement - stopped binders and sensipar - strict i/os - keep MAP >65, vasopressors prn - continue albumin IV - monitor electrolytes daily - appreciate multidisplinary approach to care from surgery, ID, pulm input; awaiting final cultures for consideration of PD catheter removal Subjective Date of service: 12/27/20 Principal diagnosis: Ac hypoxemic resp failure; Severe Sepsis; Peritonitis; Acute SBO; ESRD; CHF Interval history: In bed this AM, on vent with FiO2 30%, sedated on Fentanyl but awake. Objective - Exam Narrative Exam: - General Limitations: Physical Limitation General appearance: alert but sedated, on vent, in no acute distress - Head Head exam: Present: atraumatic, normocephalic - Eye Eye exam: Present: normal appearance, EOMI - ENT ENT exam: Present: mucous membranes moist - Neck Neck exam: Present: normal inspection - Respiratory Respiratory exam: mechanical lung sounds noted - Cardiovascular Cardiovascular Exam: Present: normal rhythm, tachycardia - GI/Abdominal GI/Abdominal exam: Present: soft, distended (slightly), tenderness (periumbilical ) - Extremities Exam Extremities exam: Present: normal inspection - Neurological Exam Neurological exam: alert but sedated - Psychiatric Psychiatric exam: opens eyes - Skin Skin exam: Present: warm, dry, intact, normal color - Vital Signs Vital signs: Vital Signs - 12hr 12/26/20 12/26/20 12/26/20 21:21 21:30 21:41 Temperature Pulse Rate 90 88 85 Pulse Rate [ From Monitor] Respiratory 12 12 12 Rate Blood Pressure 120/66 117/62 117/62 O2 Sat by Pulse 95 95 96 Oximetry 12/26/20 12/26/20 12/26/20 21:51 22:00 22:11 Temperature Pulse Rate 86 84 83 Pulse Rate [ From Monitor] Respiratory 12 12 12 Rate Blood Pressure 114/61 118/63 118/63 O2 Sat by Pulse 96 96 96 Oximetry 12/26/20 12/26/20 12/26/20 22:21 22:30 22:41 Temperature Pulse Rate 85 82 82 Pulse Rate [ From Monitor] Respiratory 12 12 12 Rate Blood Pressure 130/72 119/66 119/66 O2 Sat by Pulse 95 96 96 Oximetry 12/26/20 12/26/20 12/26/20 22:51 23:00 23:11 Temperature Pulse Rate 84 83 84 Pulse Rate [ From Monitor] Respiratory 12 12 Rate Blood Pressure 130/71 121/67 121/67 O2 Sat by Pulse 96 96 96 Oximetry 12/26/20 12/26/20 12/26/20 23:21 23:30 23:39 Temperature Pulse Rate 87 84 85 Pulse Rate [ From Monitor] Respiratory 12 11 L 11 L Rate Blood Pressure 127/71 131/72 131/72 O2 Sat by Pulse 97 95 97 Oximetry 12/26/20 12/26/20 12/26/20 23:41 23:45 23:51 Temperature Pulse Rate 100 H 99 H 103 H Pulse Rate [ From Monitor] Respiratory 14 12 Rate Blood Pressure 131/72 141/78 141/78 O2 Sat by Pulse 95 93 100 Oximetry 12/26/20 12/27/20 12/27/20 23:52 00:00 00:11 Temperature 98.8 F Pulse Rate 97 H 88 Pulse Rate [ 97 H From Monitor] Respiratory 20 11 L Rate Blood Pressure 148/77 148/77 O2 Sat by Pulse 98 95 Oximetry 12/27/20 12/27/20 12/27/20 00:21 00:30 00:41 Temperature Pulse Rate 87 84 88 Pulse Rate [ From Monitor] Respiratory 12 12 Rate Blood Pressure 126/67 124/67 124/67 O2 Sat by Pulse 95 95 95 Oximetry 12/27/20 12/27/20 12/27/20 00:51 01:00 01:11 Temperature Pulse Rate 88 89 86 Pulse Rate [ From Monitor] Respiratory 12 12 Rate Blood Pressure 129/70 130/70 130/70 O2 Sat by Pulse 94 96 96 Oximetry 12/27/20 12/27/20 12/27/20 01:21 01:30 01:41 Temperature Pulse Rate 85 86 82 Pulse Rate [ From Monitor] Respiratory 12 12 13 Rate Blood Pressure 124/67 129/70 129/70 O2 Sat by Pulse 95 95 95 Oximetry 12/27/20 12/27/20 12/27/20 01:51 02:00 02:11 Temperature Pulse Rate 81 82 81 Pulse Rate [ From Monitor] Respiratory 12 12 12 Rate Blood Pressure 129/70 122/68 122/68 O2 Sat by Pulse 95 95 96 Oximetry 12/27/20 12/27/20 12/27/20 02:21 02:30 02:41 Temperature Pulse Rate 81 87 85 Pulse Rate [ From Monitor] Respiratory 12 14 14 Rate Blood Pressure 120/67 138/80 138/80 O2 Sat by Pulse 95 98 99 Oximetry 12/27/20 12/27/20 12/27/20 02:51 03:00 03:11 Temperature Pulse Rate 82 81 80 Pulse Rate [ From Monitor] Respiratory 12 12 20 Rate Blood Pressure 132/74 124/73 124/73 O2 Sat by Pulse 99 99 99 Oximetry 12/27/20 12/27/20 12/27/20 03:21 03:30 03:41 Temperature Pulse Rate 79 79 82 Pulse Rate [ From Monitor] Respiratory 17 14 13 Rate Blood Pressure 127/71 126/71 126/71 O2 Sat by Pulse 99 99 97 Oximetry 12/27/20 12/27/20 12/27/20 03:46 03:51 04:00 Temperature 97.7 F Pulse Rate 84 84 Pulse Rate [ 84 From Monitor] Respiratory 12 12 Rate Blood Pressure 132/74 143/80 O2 Sat by Pulse 97 98 Oximetry 12/27/20 12/27/20 12/27/20 04:11 04:21 04:30 Temperature Pulse Rate 81 83 83 Pulse Rate [ From Monitor] Respiratory 12 11 L 12 Rate Blood Pressure 143/80 143/80 141/80 O2 Sat by Pulse 97 98 99 Oximetry 12/27/20 12/27/20 12/27/20 04:41 04:51 05:01 Temperature Pulse Rate 108 H 99 H 95 H Pulse Rate [ From Monitor] Respiratory 19 18 24 Rate Blood Pressure 141/80 142/82 147/81 O2 Sat by Pulse 96 94 96 Oximetry 12/27/20 12/27/20 12/27/20 05:11 05:21 05:31 Temperature Pulse Rate 89 85 100 H Pulse Rate [ From Monitor] Respiratory 17 17 26 H Rate Blood Pressure 147/81 149/81 147/81 O2 Sat by Pulse 96 96 94 Oximetry 12/27/20 12/27/20 12/27/20 05:41 05:51 06:00 Temperature Pulse Rate 88 86 81 Pulse Rate [ From Monitor] Respiratory 21 24 19 Rate Blood Pressure 147/81 152/83 139/76 O2 Sat by Pulse 97 96 96 Oximetry 12/27/20 12/27/20 12/27/20 06:11 06:21 06:30 Temperature Pulse Rate 82 86 84 Pulse Rate [ From Monitor] Respiratory 16 22 14 Rate Blood Pressure 139/76 139/77 142/75 O2 Sat by Pulse 96 97 97 Oximetry 12/27/20 06:41 Temperature Pulse Rate 86 Pulse Rate [ From Monitor] Respiratory 15 Rate Blood Pressure 142/75 O2 Sat by Pulse 96 Oximetry - Lab 12/27/20 06:40 12/27/20 06:40 Most recent lab results ABG pH 7.332 pH Units (7.350-7.450) L 12/27/20 03:40 ABG pCO2 52.0 mm Hg 12/27/20 03:40 ABG pO2 81.7 mm Hg (80.0-90.0) 12/27/20 03:40 ABG HCO3 26.9 mmol/L (20.0-26.0) H 12/27/20 03:40 ABG O2 Saturation 95.0 % (95.0-99.0) 12/27/20 03:40 Calcium 8.3 mg/dL (8.4-10.2) L 12/27/20 06:40 Phosphorus 5.00 mg/dL (2.5-4.5) H 12/25/20 04:00 Magnesium 2.10 mg/dL (1.7-2.3) 12/27/20 06:40 Medications & Allergies - Medications Allergies/Adverse Reactions: Allergies No Known Allergies Allergy (Verified 06/09/20 15:27) Home Medications: Home Medications Medication Instructions Recorded Confirmed Last Taken Type Albuterol Mdi (or & Nicu Only) 2 puff IH QID PRN #1 inhalation 04/01/17 11/01/20 10/31/20 09:00 Rx [ProAir HFA Inhaler] Calcium Acetate 667 mg PO DAILY 04/20/20 11/01/20 10/31/20 09:00 History Centrum Men's Tablet 1 tab PO DAILY 04/20/20 11/01/20 10/31/20 09:00 History Cinacalcet 30 mg PO DAILY 04/20/20 11/01/20 10/31/20 09:00 History Dialyvite with Zinc Tablet 1 tab PO DAILY 04/20/20 11/01/20 10/31/20 09:00 History Magnesium 250 mg PO BID 04/20/20 11/01/20 10/31/20 17:00 History Triamcinolone 0.1% 1 1000units TRANSDERMA DAILY 04/20/20 11/01/20 10/31/20 09:00 History Vit B12/Folic Acid/B6/Aa No.15 1,000 mg PO DAILY 04/20/20 11/01/20 10/31/20 09:00 History amLODIPine 10 mg PO DAILY 06/09/20 11/01/20 10/31/20 09:00 History AtorvaSTATin 40 mg PO HS 11/01/20 11/01/20 10/31/20 21:00 History Benadryl 25 mg PO HS 11/01/20 11/01/20 10/31/20 21:00 History Diclofenac 1 TRANSDERMA QID 11/01/20 10/31/20 19:00 History Fluticasone Propionate 1 spray INTRANASAL DAILY 11/01/20 11/01/20 10/31/20 09:00 History Vitamin D3 2,000 units 11/01/20 10/31/20 09:00 History carvediloL 12.5 mg PO DAILY 11/01/20 11/01/20 10/31/20 09:00 History hydrALAZINE 100 mg PO TID 11/01/20 11/01/20 10/31/20 19:00 History Active Medications: Generic Name Dose Route Start Last Admin Trade Name Freq PRN Reason Stop Dose Admin Albumin Human 25 gm 12/25/20 11:00 12/26/20 21:04 Albumin Human 25% (25 Gm/100 Ml) Inj IV 12/27/20 22:01 25 gm Q12HR THOMAS Administration Albuterol 2.5 mg 12/22/20 19:42 Albuterol 2.5 Mg/3 Ml Nebu IH Q4HRT PRN Shortness Of Breath Diphenhydramine HCl 25 mg 12/25/20 20:00 12/27/20 04:53 Diphenhydramine 50 Mg/Ml Vial IV 01/01/21 19:59 25 mg Q8H THOMAS Administration Famotidine 10 mg 12/24/20 13:00 12/26/20 21:06 Famotidine 20 Mg/2 Ml Inj IV 10 mg BID THOMAS Administration Fentanyl 50 mcg 12/24/20 11:35 Fentanyl 100 Mcg/2 Ml Inj IV Q10MIN PRN ANALGESIA Heparin Sodium (Porcine) 5,000 unit 12/24/20 10:00 12/26/20 21:05 Heparin 5,000 Unit/1 Ml Vial SUB-Q 5,000 unit Q12HR THOMAS Administration Hydrophilic Ointment 1 applic 12/24/20 12:03 Lip Therapy Vaseline TP Q2H PRN Dry Lips Sodium Chloride 100 mls @ 999 mls/hr 12/23/20 11:03 Nacl 0.9% IV [place] PRN Hypotension Propofol 1,000 mg in 100 mls @ 5.484 mls/hr 12/23/20 19:00 12/24/20 18:54 Diprivan 10 Mg/Ml IV 0 mcg/kg/min TITR THOMAS 0 mls/hr Titration Protocol 10 MCG/KG/MIN Fentanyl Citrate 2,000 mcg in 100 mls @ 4.57 mls/hr 12/24/20 12:00 12/27/20 06:48 Fentanyl Drip Premix IV 4 mcg/kg/hr TITR THOMAS 18.28 mls/hr Administration Protocol 1 MCG/KG/HR Metronidazole 500 mg in 100 mls @ 100 mls/hr 12/25/20 14:00 12/27/20 05:54 Flagyl 500 Mg/100 Ml IV 100 mls/hr Q8HR THOMAS Administration Protocol Cefepime HCl 2 gm in 100 mls @ 200 mls/hr 12/26/20 11:00 12/26/20 11:00 Cefepime/Ns 2 Gm/100 Ml IV Infused Q24H THOMAS Infusion Protocol Amino Acids/Electrolytes/Dextrose 1,560 mls @ 65 mls/hr 12/26/20 20:00 12/26/20 20:00 Tpn Adult IV 12/27/20 19:59 65 mls/hr DAILY@1999 THOMAS Administration Protocol Morphine Sulfate 2 mg 12/23/20 10:00 12/27/20 01:36 Morphine 2 Mg/1 Ml Inj IV 2 mg Q4H PRN Administration Pain, Moderate (4-6) Multi-Ingred Cream/Lotion/Oil/Oint 1 applic 12/24/20 12:03 Mineral Oil/Petrolatum, White Ophth Oint 3.5 Gm OU Q4H PRN Dry Eye(s) Ondansetron HCl 4 mg 12/22/20 19:42 Ondansetron 4 Mg/2 Ml Inj IV Q8H PRN Nausea And Vomiting Sodium Chloride 10 ml 12/22/20 22:00 12/26/20 21:06 Sodium Chloride 0.9% 10 Ml Flush Syringe IV 10 ml BID THOMAS Administration Sodium Chloride 10 ml 12/22/20 19:42 Sodium Chloride 0.9% 10 Ml Flush Syringe IV PRN PRN LINE FLUSH
--- NOTE | 2020-12-27 10:12 | Progress Note ---
Assessment and Plan POD#4 s/p ex lap with extensive lysis of adhesions and two small bowel resections with primary anastamosis for SBO with necrotic segement small bowel. Afebrile and stable on vent. - expect prolonged post op ileus, recommend TPN - ESRD -DD dialysis per nephrology - continue abx - wean vent as tolerated Subjective Date of service: 12/27/20 Narrative: no acute events. Pt had his NGT since 6am. Objective Vital Signs - 12hr 12/26/20 12/26/20 12/26/20 22:11 22:21 22:30 Temperature Pulse Rate 83 85 82 Pulse Rate [ From Monitor] Respiratory 12 12 12 Rate Blood Pressure 118/63 130/72 119/66 O2 Sat by Pulse 96 95 96 Oximetry 12/26/20 12/26/20 12/26/20 22:41 22:51 23:00 Temperature Pulse Rate 82 84 83 Pulse Rate [ From Monitor] Respiratory 12 12 12 Rate Blood Pressure 119/66 130/71 121/67 O2 Sat by Pulse 96 96 96 Oximetry 12/26/20 12/26/20 12/26/20 23:11 23:21 23:30 Temperature Pulse Rate 84 87 84 Pulse Rate [ From Monitor] Respiratory 12 12 11 L Rate Blood Pressure 121/67 127/71 131/72 O2 Sat by Pulse 96 97 95 Oximetry 12/26/20 12/26/20 12/26/20 23:39 23:41 23:45 Temperature Pulse Rate 85 100 H 99 H Pulse Rate [ From Monitor] Respiratory 11 L 14 Rate Blood Pressure 131/72 131/72 141/78 O2 Sat by Pulse 97 95 93 Oximetry 12/26/20 12/26/20 12/27/20 23:51 23:52 00:00 Temperature 98.8 F Pulse Rate 103 H 97 H Pulse Rate [ 97 H From Monitor] Respiratory 12 20 Rate Blood Pressure 141/78 148/77 O2 Sat by Pulse 100 98 Oximetry 12/27/20 12/27/20 12/27/20 00:11 00:21 00:30 Temperature Pulse Rate 88 87 84 Pulse Rate [ From Monitor] Respiratory 11 L 12 12 Rate Blood Pressure 148/77 126/67 124/67 O2 Sat by Pulse 95 95 95 Oximetry 12/27/20 12/27/20 12/27/20 00:41 00:51 01:00 Temperature Pulse Rate 88 88 89 Pulse Rate [ From Monitor] Respiratory 12 12 12 Rate Blood Pressure 124/67 129/70 130/70 O2 Sat by Pulse 95 94 96 Oximetry 12/27/20 12/27/20 12/27/20 01:11 01:21 01:30 Temperature Pulse Rate 86 85 86 Pulse Rate [ From Monitor] Respiratory 12 12 12 Rate Blood Pressure 130/70 124/67 129/70 O2 Sat by Pulse 96 95 95 Oximetry 12/27/20 12/27/20 12/27/20 01:41 01:51 02:00 Temperature Pulse Rate 82 81 82 Pulse Rate [ From Monitor] Respiratory 13 12 12 Rate Blood Pressure 129/70 129/70 122/68 O2 Sat by Pulse 95 95 95 Oximetry 12/27/20 12/27/20 12/27/20 02:11 02:21 02:30 Temperature Pulse Rate 81 81 87 Pulse Rate [ From Monitor] Respiratory 12 12 14 Rate Blood Pressure 122/68 120/67 138/80 O2 Sat by Pulse 96 95 98 Oximetry 12/27/20 12/27/20 12/27/20 02:41 02:51 03:00 Temperature Pulse Rate 85 82 81 Pulse Rate [ From Monitor] Respiratory 14 12 12 Rate Blood Pressure 138/80 132/74 124/73 O2 Sat by Pulse 99 99 99 Oximetry 12/27/20 12/27/20 12/27/20 03:11 03:21 03:30 Temperature Pulse Rate 80 79 79 Pulse Rate [ From Monitor] Respiratory 20 17 14 Rate Blood Pressure 124/73 127/71 126/71 O2 Sat by Pulse 99 99 99 Oximetry 12/27/20 12/27/20 12/27/20 03:41 03:46 03:51 Temperature 97.7 F Pulse Rate 82 84 Pulse Rate [ From Monitor] Respiratory 13 12 Rate Blood Pressure 126/71 132/74 O2 Sat by Pulse 97 97 Oximetry 12/27/20 12/27/20 12/27/20 04:00 04:11 04:21 Temperature Pulse Rate 84 81 83 Pulse Rate [ 84 From Monitor] Respiratory 12 12 11 L Rate Blood Pressure 143/80 143/80 143/80 O2 Sat by Pulse 98 97 98 Oximetry 12/27/20 12/27/20 12/27/20 04:30 04:41 04:51 Temperature Pulse Rate 83 108 H 99 H Pulse Rate [ From Monitor] Respiratory 12 19 18 Rate Blood Pressure 141/80 141/80 142/82 O2 Sat by Pulse 99 96 94 Oximetry 12/27/20 12/27/20 12/27/20 05:01 05:11 05:21 Temperature Pulse Rate 95 H 89 85 Pulse Rate [ From Monitor] Respiratory 24 17 17 Rate Blood Pressure 147/81 147/81 149/81 O2 Sat by Pulse 96 96 96 Oximetry 12/27/20 12/27/20 12/27/20 05:31 05:41 05:51 Temperature Pulse Rate 100 H 88 86 Pulse Rate [ From Monitor] Respiratory 26 H 21 24 Rate Blood Pressure 147/81 147/81 152/83 O2 Sat by Pulse 94 97 96 Oximetry 12/27/20 12/27/20 12/27/20 06:00 06:11 06:21 Temperature Pulse Rate 81 82 86 Pulse Rate [ From Monitor] Respiratory 19 16 22 Rate Blood Pressure 139/76 139/76 139/77 O2 Sat by Pulse 96 96 97 Oximetry 12/27/20 12/27/20 12/27/20 06:30 06:41 06:51 Temperature Pulse Rate 84 86 86 Pulse Rate [ From Monitor] Respiratory 14 15 29 H Rate Blood Pressure 142/75 142/75 155/76 O2 Sat by Pulse 97 96 98 Oximetry 12/27/20 12/27/20 12/27/20 07:01 07:11 07:21 Temperature Pulse Rate 88 85 86 Pulse Rate [ From Monitor] Respiratory 15 17 15 Rate Blood Pressure 141/66 141/66 149/80 O2 Sat by Pulse 97 97 97 Oximetry 12/27/20 12/27/20 12/27/20 07:30 07:41 07:51 Temperature Pulse Rate 89 94 H 85 Pulse Rate [ From Monitor] Respiratory 23 31 H 23 Rate Blood Pressure 148/102 148/102 149/85 O2 Sat by Pulse 97 96 Oximetry 12/27/20 12/27/20 12/27/20 08:00 08:11 08:21 Temperature 98.7 F Pulse Rate 83 86 83 Pulse Rate [ 88 From Monitor] Respiratory 22 22 18 Rate Blood Pressure 153/85 153/85 153/83 O2 Sat by Pulse 96 Oximetry 12/27/20 12/27/20 12/27/20 08:30 08:41 08:51 Temperature Pulse Rate 85 85 86 Pulse Rate [ From Monitor] Respiratory 19 22 17 Rate Blood Pressure 152/82 152/82 156/86 O2 Sat by Pulse Oximetry 12/27/20 12/27/20 12/27/20 09:00 09:11 09:21 Temperature Pulse Rate 84 84 86 Pulse Rate [ From Monitor] Respiratory 21 16 19 Rate Blood Pressure 152/83 152/83 158/85 O2 Sat by Pulse 99 100 Oximetry - General physical appearance no distress, no pain, chronically ill - Respiratory normal expansion, normal respiratory effort, other (intubated on vent) - Abdomen soft, not tender, distended, other (staple line c/d/i, PD cath in place) - Labs 12/27/20 06:40 12/27/20 06:40 Diabetes panel 12/27/20 Range/Units 06:40 Sodium 137 (137-145) mmol/L Potassium 4.2 (3.6-5.0) mmol/L Chloride 99.2 (98-107) mmol/L Carbon Dioxide 27 (22-30) mmol/L BUN 64 H (9-20) mg/dL Creatinine 9.8 H (0.8-1.3) mg/dL Glucose 147 H (75-100) mg/dL Calcium 8.3 L (8.4-10.2) mg/dL AST 72 H (5-40) units/L ALT 46 (7-56) units/L Total Protein 5.1 L D (6.3-8.2) g/dL Albumin 2.9 L (3.9-5) g/dL Calcium panel 12/27/20 Range/Units 06:40 Calcium 8.3 L (8.4-10.2) mg/dL Albumin 2.9 L (3.9-5) g/dL Pituitary panel 12/27/20 Range/Units 06:40 Sodium 137 (137-145) mmol/L Potassium 4.2 (3.6-5.0) mmol/L Chloride 99.2 (98-107) mmol/L Carbon Dioxide 27 (22-30) mmol/L BUN 64 H (9-20) mg/dL Creatinine 9.8 H (0.8-1.3) mg/dL Glucose 147 H (75-100) mg/dL Calcium 8.3 L (8.4-10.2) mg/dL Adrenal panel 12/27/20 Range/Units 06:40 Sodium 137 (137-145) mmol/L Potassium 4.2 (3.6-5.0) mmol/L Chloride 99.2 (98-107) mmol/L Carbon Dioxide 27 (22-30) mmol/L BUN 64 H (9-20) mg/dL Creatinine 9.8 H (0.8-1.3) mg/dL Glucose 147 H (75-100) mg/dL Calcium 8.3 L (8.4-10.2) mg/dL Total Bilirubin 3.70 H (0.1-1.2) mg/dL AST 72 H (5-40) units/L ALT 46 (7-56) units/L Total Protein 5.1 L D (6.3-8.2) g/dL Albumin 2.9 L (3.9-5) g/dL
[2020-12-27] MEDS: ALBUMIN HUMAN 25% (25 GM/100 ML) INJ IV SCH ×2 (10:52→21:13)
[2020-12-27] MEDS: FAMOTIDINE 20 MG/2 ML INJ IV SCH ×2 (10:52→21:14)
--- NOTE | 2020-12-27 11:24 | Progress Note ---
Assessment and Plan Acute hypoxemic respiratory failure, on mechanical ventilatory support. Severe Sepsis Peritonitis Acute small-bowel obstruction with tissue necrosis. End-stage renal disease, on dialysis. Hypertension. Crohn's disease. Gastroesophageal reflux disease. Heart failure with reduced ejection fraction. Hyperkalemia. Anemia that is normocytic. Lactic acidosis. Oropharyngeal dysphagia - to begin PPN nutrition - will order midline as about to loose trialysis access - placed on SBT - keep set rate at 12/min - complete Benadryl & BID Pepcid re: Angioedema / macroglossia (much better) - continue to hold on steroids for now re: wound healing issues - continue care as below otherwise; - continue Daily SAT and SBT assessment as tolerated - continue to wean supplemental oxygen for target O2 sat's > 92% acutely - VAP bundle addressed - continue lung protective strategies - continue bronchodilators with pulmonary hygiene per RT - wean per pulmonary driven protocols otherwise - HD/UF per nephrology prescription for toxin and volume control - avoid nephrotoxins, renally dose all medications - continue accuchecks with glycemic control per SSI (While critically ill target blood glucose of 140-180 mg/dL; avoid hypoglycemia) - sedation prn for target RASS 0 to -1 - continue to avoid benzodiazepine's, reduce the possibility of delirium - complete AB's per ID rec's - prn analgesia per CPOT score - Maintenance of sleep-wake cycle, avoid delirium - enteral nutritional support at goal rate as tolerated (once cleared by surgeon) - G.I. & VTE prophylaxis - PT/OT/ROM exercises - continue mobility protocols for pressure ulcer prophylaxis - Monitor hemodynamics closely - continue other care per attending / other consultants - discharge planning ongoing concurrently COVID SPECIFIC INTERVENTIONS - Remdesivir as per ID/Pulmonary developed protocols - consider systemic steroids for severe COVID-19 infection empirically - follow repeat COVID tests results - zinc and vitamin C supplementation - Monitor inflammatory markers per facility protocol - ferritin, Ddimer, CRP - therapeutic anticoagulation per system Protocol based on d-dimer and clinical considerations - Continue contact and airborne isolation .... Re-evaluate in am & prn CONDITION: CRITICAL PROGNOSIS: GUARDED CODE STATUS: FULL CODE The high probability of a clinically significant, sudden or life-threatening deterioration of the [respiratory, cardiovascular, GI & neurologic] system(s) required my full and direct attention, intervention and personal management. The aggregate critical care time was [32] minutes without overlap. Time includes spent on; [x] Data Review and interpretation [x] Patient assessment and monitoring of vital signs [x] Documentation [x] Medication orders and management Subjective Date of service: 12/27/20 Principal diagnosis: Ac hypoxemic resp failure; Severe Sepsis; Peritonitis; Acute SBO; ESRD; CHF Interval history: Patient is seen today for: Ac hypoxemic resp failure; Severe Sepsis; Peritonitis; Acute SBO; ESRD on Dialysis; HTN; Crohn's disease; HFrEF Seen and examined at bedside; 24hour events reviewed; nursing and respiratory care staff consulted; no adverse overnight events reported to me; resting in bed; remains on MVS; denies pain; passed bedside SBT; awaiting Permacath placement; on TPN Objective Vital Signs - 12hr 12/26/20 12/26/20 12/26/20 23:30 23:39 23:41 Temperature Pulse Rate 84 85 100 H Pulse Rate [ From Monitor] Respiratory 11 L 11 L 14 Rate Blood Pressure 131/72 131/72 131/72 O2 Sat by Pulse 95 97 95 Oximetry 12/26/20 12/26/20 12/26/20 23:45 23:51 23:52 Temperature 98.8 F Pulse Rate 99 H 103 H Pulse Rate [ From Monitor] Respiratory 12 Rate Blood Pressure 141/78 141/78 O2 Sat by Pulse 93 100 Oximetry 12/27/20 12/27/20 12/27/20 00:00 00:11 00:21 Temperature Pulse Rate 97 H 88 87 Pulse Rate [ 97 H From Monitor] Respiratory 20 11 L 12 Rate Blood Pressure 148/77 148/77 126/67 O2 Sat by Pulse 98 95 95 Oximetry 12/27/20 12/27/20 12/27/20 00:30 00:41 00:51 Temperature Pulse Rate 84 88 88 Pulse Rate [ From Monitor] Respiratory 12 12 12 Rate Blood Pressure 124/67 124/67 129/70 O2 Sat by Pulse 95 95 94 Oximetry 12/27/20 12/27/20 12/27/20 01:00 01:11 01:21 Temperature Pulse Rate 89 86 85 Pulse Rate [ From Monitor] Respiratory 12 12 12 Rate Blood Pressure 130/70 130/70 124/67 O2 Sat by Pulse 96 96 95 Oximetry 12/27/20 12/27/20 12/27/20 01:30 01:41 01:51 Temperature Pulse Rate 86 82 81 Pulse Rate [ From Monitor] Respiratory 12 13 12 Rate Blood Pressure 129/70 129/70 129/70 O2 Sat by Pulse 95 95 95 Oximetry 12/27/20 12/27/20 12/27/20 02:00 02:11 02:21 Temperature Pulse Rate 82 81 81 Pulse Rate [ From Monitor] Respiratory 12 12 12 Rate Blood Pressure 122/68 122/68 120/67 O2 Sat by Pulse 95 96 95 Oximetry 12/27/20 12/27/20 12/27/20 02:30 02:41 02:51 Temperature Pulse Rate 87 85 82 Pulse Rate [ From Monitor] Respiratory 14 14 12 Rate Blood Pressure 138/80 138/80 132/74 O2 Sat by Pulse 98 99 99 Oximetry 12/27/20 12/27/20 12/27/20 03:00 03:11 03:21 Temperature Pulse Rate 81 80 79 Pulse Rate [ From Monitor] Respiratory 12 20 17 Rate Blood Pressure 124/73 124/73 127/71 O2 Sat by Pulse 99 99 99 Oximetry 12/27/20 12/27/20 12/27/20 03:30 03:41 03:46 Temperature 97.7 F Pulse Rate 79 82 Pulse Rate [ From Monitor] Respiratory 14 13 Rate Blood Pressure 126/71 126/71 O2 Sat by Pulse 99 97 Oximetry 12/27/20 12/27/20 12/27/20 03:51 04:00 04:11 Temperature Pulse Rate 84 84 81 Pulse Rate [ 84 From Monitor] Respiratory 12 12 12 Rate Blood Pressure 132/74 143/80 143/80 O2 Sat by Pulse 97 98 97 Oximetry 12/27/20 12/27/20 12/27/20 04:21 04:30 04:41 Temperature Pulse Rate 83 83 108 H Pulse Rate [ From Monitor] Respiratory 11 L 12 19 Rate Blood Pressure 143/80 141/80 141/80 O2 Sat by Pulse 98 99 96 Oximetry 12/27/20 12/27/20 12/27/20 04:51 05:01 05:11 Temperature Pulse Rate 99 H 95 H 89 Pulse Rate [ From Monitor] Respiratory 18 24 17 Rate Blood Pressure 142/82 147/81 147/81 O2 Sat by Pulse 94 96 96 Oximetry 12/27/20 12/27/20 12/27/20 05:21 05:31 05:41 Temperature Pulse Rate 85 100 H 88 Pulse Rate [ From Monitor] Respiratory 17 26 H 21 Rate Blood Pressure 149/81 147/81 147/81 O2 Sat by Pulse 96 94 97 Oximetry 12/27/20 12/27/20 12/27/20 05:51 06:00 06:11 Temperature Pulse Rate 86 81 82 Pulse Rate [ From Monitor] Respiratory 24 19 16 Rate Blood Pressure 152/83 139/76 139/76 O2 Sat by Pulse 96 96 96 Oximetry 12/27/20 12/27/20 12/27/20 06:21 06:30 06:41 Temperature Pulse Rate 86 84 86 Pulse Rate [ From Monitor] Respiratory 22 14 15 Rate Blood Pressure 139/77 142/75 142/75 O2 Sat by Pulse 97 97 96 Oximetry 12/27/20 12/27/20 12/27/20 06:51 07:01 07:11 Temperature Pulse Rate 86 88 85 Pulse Rate [ From Monitor] Respiratory 29 H 15 17 Rate Blood Pressure 155/76 141/66 141/66 O2 Sat by Pulse 98 97 97 Oximetry 12/27/20 12/27/20 12/27/20 07:21 07:30 07:41 Temperature Pulse Rate 86 89 94 H Pulse Rate [ From Monitor] Respiratory 15 23 31 H Rate Blood Pressure 149/80 148/102 148/102 O2 Sat by Pulse 97 97 96 Oximetry 12/27/20 12/27/20 12/27/20 07:51 08:00 08:11 Temperature 98.7 F Pulse Rate 85 83 86 Pulse Rate [ 88 From Monitor] Respiratory 23 22 22 Rate Blood Pressure 149/85 153/85 153/85 O2 Sat by Pulse 96 Oximetry 12/27/20 12/27/20 12/27/20 08:21 08:30 08:41 Temperature Pulse Rate 83 85 85 Pulse Rate [ From Monitor] Respiratory 18 19 22 Rate Blood Pressure 153/83 152/82 152/82 O2 Sat by Pulse Oximetry 12/27/20 12/27/20 12/27/20 08:51 09:00 09:10 Temperature Pulse Rate 86 84 85 Pulse Rate [ From Monitor] Respiratory 17 21 Rate Blood Pressure 156/86 152/83 O2 Sat by Pulse 98 Oximetry 12/27/20 12/27/20 09:11 09:21 Temperature Pulse Rate 84 86 Pulse Rate [ From Monitor] Respiratory 16 19 Rate Blood Pressure 152/83 158/85 O2 Sat by Pulse 99 100 Oximetry Constitutional: appears uncomfortable, other (elderly male with mildly increased respiratory effort at rest on MVS) Eyes: non-icteric ENT: oropharynx moist, other (ETT 24 cm LEEANN) Neck: supple, no lymphadenopathy, no JVD Effort: mildly labored Ascultation: Bilateral: diminished breath sounds, rhonchi (scant) Percussion: Bilateral: not dull Cardiovascular: regular rate and rhythm Gastrointestinal: hypoactive bowel sounds, soft, tender (mild), non-distended (protuberant) Integumentary: other (popst surgical changes) Extremities: no cyanosis, no edema, pulses normal, no ischemia or petechiae Neurologic: non-focal exam (grossly), pupils equal and round, CN II-XII normal Psychiatric: mood appropriate, affect normal CBC and BMP: 12/27/20 06:40 12/27/20 06:40 ABG, PT/INR, D-dimer: ABG ABG pH 7.332 pH Units (7.350-7.450) L 12/27/20 03:40 POC ABG pCO2 28.2 mmHg (32.0-48.0) L 12/25/20 03:33 ABG pCO2 52.0 mm Hg 12/27/20 03:40 POC ABG pO2 62.8 mmHg (83-108) L 12/25/20 03:33 ABG pO2 81.7 mm Hg (80.0-90.0) 12/27/20 03:40 POC ABG HCO3 23.8 12/25/20 03:33 ABG O2 Saturation 95.0 % (95.0-99.0) 12/27/20 03:40 PT/INR, D-dimer PT 13.8 Sec. (12.2-14.9) 12/22/20 14:38 INR 1.07 (0.87-1.13) 12/22/20 14:38 Abnormal lab findings: Abnormal Labs 12/22/20 12/22/20 12/22/20 14:38 14:38 14:38 WBC RBC Hgb 11.2 L Hct 35.0 L RDW 16.7 H Plt Count Lymph % (Auto) [place] % (Auto) Lymph # (Auto) Seg Neutrophils % Seg Neuts % (Manual) 94.0 H Lymphocytes % (Manual) 5.0 L Seg Neutrophils # Man Lymphocytes # (Manual) 0.3 L ABG pH POC ABG pCO2 POC ABG pO2 ABG pO2 ABG HCO3 ABG O2 Saturation ABG Base Excess ABG Hemoglobin ABG Oxyhemoglobin ABG Sodium ABG Potassium ABG Chloride ABG Glucose Oxyhemoglobin Sodium Potassium Carbon Dioxide BUN 58 H Creatinine 13.2 H Glucose 113 H Lactic Acid 3.60 H* Calcium Phosphorus Total Bilirubin 1.30 H AST ALT Alkaline Phosphatase 155 H Total Protein Albumin Arterial Blood Glucose Arterial Blood Ionized Calcium Crossmatch 12/22/20 12/22/20 12/23/20 16:26 17:47 05:22 WBC RBC Hgb Hct RDW Plt Count Lymph % (Auto) [place] % (Auto) Lymph # (Auto) Seg Neutrophils % Seg Neuts % (Manual) Lymphocytes % (Manual) Seg Neutrophils # Man Lymphocytes # (Manual) ABG pH POC ABG pCO2 POC ABG pO2 ABG pO2 ABG HCO3 ABG O2 Saturation ABG Base Excess ABG Hemoglobin ABG Oxyhemoglobin ABG Sodium ABG Potassium ABG Chloride ABG Glucose Oxyhemoglobin Sodium Potassium Carbon Dioxide BUN Creatinine Glucose Lactic Acid 2.80 H* 3.10 H* 2.30 H* Calcium Phosphorus Total Bilirubin AST ALT Alkaline Phosphatase Total Protein Albumin Arterial Blood Glucose Arterial Blood Ionized Calcium Crossmatch 12/23/20 12/23/20 12/23/20 05:22 05:22 06:35 WBC 12.1 H RBC Hgb 11.0 L Hct 33.7 L RDW 16.9 H Plt Count Lymph % (Auto) [place] % (Auto) Lymph # (Auto) Seg Neutrophils % Seg Neuts % (Manual) 93.0 H Lymphocytes % (Manual) 1.0 L Seg Neutrophils # Man 11.3 H Lymphocytes # (Manual) 0.1 L ABG pH POC ABG pCO2 POC ABG pO2 ABG pO2 ABG HCO3 ABG O2 Saturation ABG Base Excess ABG Hemoglobin ABG Oxyhemoglobin ABG Sodium ABG Potassium ABG Chloride ABG Glucose Oxyhemoglobin Sodium Potassium 5.7 H D Carbon Dioxide BUN 73 H Creatinine 14.2 H Glucose Lactic Acid 2.30 H* Calcium 7.9 L Phosphorus Total Bilirubin 1.40 H AST 119 H ALT 130 H Alkaline Phosphatase 183 H Total Protein 6.1 L Albumin 3.6 L Arterial Blood Glucose Arterial Blood Ionized Calcium Crossmatch 12/23/20 12/23/20 12/23/20 11:40 13:53 16:47 WBC RBC Hgb 10.0 L Hct 30.4 L RDW Plt Count Lymph % (Auto) [place] % (Auto) Lymph # (Auto) Seg Neutrophils % Seg Neuts % (Manual) Lymphocytes % (Manual) Seg Neutrophils # Man Lymphocytes # (Manual) ABG pH POC ABG pCO2 POC ABG pO2 137.5 H ABG pO2 ABG HCO3 ABG O2 Saturation ABG Base Excess ABG Hemoglobin 9.7 L ABG Oxyhemoglobin ABG Sodium 134.1 L ABG Potassium 6.6 H ABG Chloride ABG Glucose 103 H Oxyhemoglobin Sodium Potassium Carbon Dioxide BUN Creatinine Glucose Lactic Acid Calcium Phosphorus Total Bilirubin AST ALT Alkaline Phosphatase Total Protein Albumin Arterial Blood Glucose 103 H Arterial Blood Ionized Calcium 3.8 L Crossmatch See Detail 12/23/20 12/23/20 12/24/20 20:35 20:40 01:20 WBC RBC Hgb Hct RDW Plt Count Lymph % (Auto) [place] % (Auto) Lymph # (Auto) Seg Neutrophils % Seg Neuts % (Manual) Lymphocytes % (Manual) Seg Neutrophils # Man Lymphocytes # (Manual) ABG pH 7.252 L POC ABG pCO2 POC ABG pO2 ABG pO2 50.1 L ABG HCO3 ABG O2 Saturation 81.1 L ABG Base Excess -5.9 L ABG Hemoglobin 12.1 L ABG Oxyhemoglobin ABG Sodium ABG Potassium ABG Chloride ABG Glucose Oxyhemoglobin 78.6 L Sodium 134 L Potassium 6.9 H* D 6.3 H* Carbon Dioxide 18 L 20 L BUN 87 H 91 H Creatinine 15.3 H 15.3 H Glucose 103 H Lactic Acid Calcium 6.9 L 7.5 L Phosphorus Total Bilirubin AST ALT Alkaline Phosphatase Total Protein Albumin Arterial Blood Glucose Arterial Blood Ionized Calcium Crossmatch 12/24/20 12/24/20 12/24/20 04:00 10:29 10:29 WBC RBC 3.49 L Hgb 10.5 L Hct 31.2 L RDW 17.5 H Plt Count 124 L Lymph % (Auto) 3.7 L [place] % (Auto) 9.8 H Lymph # (Auto) 0.2 L Seg Neutrophils % 85.9 H Seg Neuts % (Manual) Lymphocytes % (Manual) Seg Neutrophils # Man Lymphocytes # (Manual) ABG pH POC ABG pCO2 28.1 L POC ABG pO2 ABG pO2 ABG HCO3 ABG O2 Saturation ABG Base Excess ABG Hemoglobin ABG Oxyhemoglobin ABG Sodium 133.9 L ABG Potassium 5.3 H ABG Chloride 108.0 H ABG Glucose Oxyhemoglobin Sodium Potassium 5.6 H Carbon Dioxide 19 L BUN 99 H Creatinine 16.9 H Glucose 52 L Lactic Acid Calcium 7.6 L Phosphorus Total Bilirubin 3.50 H AST 67 H ALT 71 H Alkaline Phosphatase Total Protein 3.5 L D Albumin 2.1 L Arterial Blood Glucose Arterial Blood Ionized Calcium 4.0 L Crossmatch 12/25/20 12/25/20 12/25/20 03:33 04:00 04:00 WBC 3.8 L RBC 2.90 L Hgb 8.6 L Hct 25.7 L RDW 16.7 H Plt Count 113 L Lymph % (Auto) [place] % (Auto) Lymph # (Auto) Seg Neutrophils % Seg Neuts % (Manual) Lymphocytes % (Manual) Seg Neutrophils # Man Lymphocytes # (Manual) ABG pH 7.544 H POC ABG pCO2 28.2 L POC ABG pO2 62.8 L ABG pO2 ABG HCO3 ABG O2 Saturation ABG Base Excess ABG Hemoglobin 9.3 L ABG Oxyhemoglobin 93.0 L ABG Sodium 130.3 L ABG Potassium ABG Chloride ABG Glucose 97 H Oxyhemoglobin Sodium Potassium Carbon Dioxide BUN 62 H Creatinine 11.4 H Glucose Lactic Acid Calcium 7.7 L Phosphorus 5.00 H Total Bilirubin AST ALT Alkaline Phosphatase Total Protein Albumin Arterial Blood Glucose 97 H Arterial Blood Ionized Calcium 3.9 L Crossmatch 12/26/20 12/26/20 12/27/20 04:46 Unknown 03:40 WBC 4.1 L RBC 2.61 L Hgb 7.8 L Hct 23.4 L RDW 17.1 H Plt Count 119 L Lymph % (Auto) 5.3 L [place] % (Auto) 10.6 H Lymph # (Auto) 0.2 L Seg Neutrophils % 78.8 H Seg Neuts % (Manual) Lymphocytes % (Manual) Seg Neutrophils # Man Lymphocytes # (Manual) ABG pH 7.333 L 7.332 L POC ABG pCO2 POC ABG pO2 ABG pO2 ABG HCO3 26.9 H ABG O2 Saturation ABG Base Excess -2.4 L ABG Hemoglobin 6.8 L 7.2 L ABG Oxyhemoglobin ABG Sodium ABG Potassium ABG Chloride ABG Glucose Oxyhemoglobin 93.0 L 93.1 L Sodium Potassium Carbon Dioxide BUN Creatinine Glucose Lactic Acid Calcium Phosphorus Total Bilirubin AST ALT Alkaline Phosphatase Total Protein Albumin Arterial Blood Glucose Arterial Blood Ionized Calcium Crossmatch 12/27/20 12/27/20 06:40 06:40 WBC 4.4 L RBC 2.49 L Hgb 7.4 L Hct 22.4 L RDW 17.1 H Plt Count 111 L Lymph % (Auto) 6.7 L [place] % (Auto) 12.6 H Lymph # (Auto) 0.3 L Seg Neutrophils % 77.6 H Seg Neuts % (Manual) Lymphocytes % (Manual) Seg Neutrophils # Man Lymphocytes # (Manual) ABG pH POC ABG pCO2 POC ABG pO2 ABG pO2 ABG HCO3 ABG O2 Saturation ABG Base Excess ABG Hemoglobin ABG Oxyhemoglobin ABG Sodium ABG Potassium ABG Chloride ABG Glucose Oxyhemoglobin Sodium Potassium Carbon Dioxide BUN 64 H Creatinine 9.8 H Glucose 147 H Lactic Acid Calcium 8.3 L Phosphorus 5.00 H Total Bilirubin 3.70 H AST 72 H ALT Alkaline Phosphatase 142 H Total Protein 5.1 L D Albumin 2.9 L Arterial Blood Glucose Arterial Blood Ionized Calcium Crossmatch Chest x-ray: image reviewed (mild interstitial edema at worst) Allied health notes reviewed: nursing
--- NOTE | 2020-12-27 12:48 | Progress Note ---
Assessment and Plan Cultures: 12/22/2020 blood culture: GNR, Streptococcus bovis 12/22/2020 PD fluid culture: No growth 12/24/2020 tracheal aspirate culture: No growth 12/24/2020 blood culture: No growth A/P: 60-year-old male with ESRD on PD, Crohn's disease, CHF, gastroesophageal reflux disease was admitted to the hospital with complaints of abdominal pain and fever: #Severe sepsis: Secondary to small bowel obstruction/necrotic bowel with concern for PD associated peritonitis. #Small bowel obstruction/necrotic bowel: with concern for PD associated peritonitis: Nephrology and general surgery following. Status post exploratory laparotomy with extensive lysis, primary anastomosis, had necrotic segment of small bowel. #Streptococcus bovis bacteremia and GNR bacteremia: secondary to above. #ESRD: Renally dose antibiotics. Now on HD. #Elevated LFTs: Monitor.-Secondary to sepsis. #Acute respiratory failure: On the vent Recs: -Continue cefepime, Flagyl, fluconazole, vancomycin renally dosed -Follow-up blood cultures -TTE ordered Yesika Denny MD, FACP [facility] ([facility] O: [phone] F: [phone] Subjective Date of service: 12/27/20 Principal diagnosis: Ac hypoxemic resp failure; Severe Sepsis; Peritonitis; Acute SBO; ESRD; CHF Interval history: No fever. remains on the vent. no BM yet. Objective - Exam Narrative Exam: Physical Exam: Constitutional: awake, intubated, on the vent Head, Ears, Nose: Normocephalic, atraumatic. External ears, nose normal Eyes: Conjunctivae/corneas clear. No icterus. No ptosis. Neck: intubated Oral: intubated Cardiovascular: S1, S2 + Respiratory: AE fair bilaterally and equal GI: Midline incision, PD catheter present bowel sounds hypoactive Musculoskeletal: No pedal edema, no cyanosis. Skin: No rash or abscess Hem/Lymphatic: No palpable cervical or supraclavicular nodes. No lymphangitis Psych: no agitation Neurological: awake, intubated, on the vent, exam limited - Constitutional Vitals: Vital Signs Temp Pulse Resp BP Pulse Ox 98.7 F 94 H 19 158/85 100 12/27/20 12:00 12/27/20 12:19 12/27/20 09:21 12/27/20 09:21 12/27/20 12:19 Temperature -Last 24 Hours Temperature 98.7 F Temperature 98.7 F Temperature 97.7 F Temperature 98.8 F Temperature 98.2 F Temperature 98.3 F - Labs CBC & Chem 7: 12/27/20 06:40 12/27/20 06:40 Labs: Abnormal lab results 12/27/20 12/27/20 12/27/20 Range/Units 03:40 06:40 06:40 WBC 4.4 L (4.5-11.0) K/mm3 RBC 2.49 L (3.65-5.03) M/mm3 Hgb 7.4 L (11.8-15.2) gm/dl Hct 22.4 L (35.5-45.6) % RDW 17.1 H (13.2-15.2) % Plt Count 111 L (140-440) K/mm3 Lymph % (Auto) 6.7 L (13.4-35.0) % [place] % (Auto) 12.6 H (0.0-7.3) % Lymph # (Auto) 0.3 L (1.2-5.4) K/mm3 Seg Neutrophils % 77.6 H (40.0-70.0) % ABG pH 7.332 L (7.350-7.450) pH Units ABG HCO3 26.9 H (20.0-26.0) mmol/L ABG Hemoglobin 7.2 L (14.0-18.0) gm/dl Oxyhemoglobin 93.1 L (95.0-99.0) % BUN 64 H (9-20) mg/dL Creatinine 9.8 H (0.8-1.3) mg/dL Glucose 147 H (75-100) mg/dL POC Glucose (70-105) mg/dL Calcium 8.3 L (8.4-10.2) mg/dL Phosphorus 5.00 H (2.5-4.5) mg/dL Total Bilirubin 3.70 H (0.1-1.2) mg/dL AST 72 H (5-40) units/L Alkaline Phosphatase 142 H (35-129) units/L Total Protein 5.1 L D (6.3-8.2) g/dL Albumin 2.9 L (3.9-5) g/dL 12/27/20 Range/Units 11:22 WBC (4.5-11.0) K/mm3 RBC (3.65-5.03) M/mm3 Hgb (11.8-15.2) gm/dl Hct (35.5-45.6) % RDW (13.2-15.2) % Plt Count (140-440) K/mm3 Lymph % (Auto) (13.4-35.0) % [place] % (Auto) (0.0-7.3) % Lymph # (Auto) (1.2-5.4) K/mm3 Seg Neutrophils % (40.0-70.0) % ABG pH (7.350-7.450) pH Units ABG HCO3 (20.0-26.0) mmol/L ABG Hemoglobin (14.0-18.0) gm/dl Oxyhemoglobin (95.0-99.0) % BUN (9-20) mg/dL Creatinine (0.8-1.3) mg/dL Glucose (75-100) mg/dL POC Glucose 134 H (70-105) mg/dL Calcium (8.4-10.2) mg/dL Phosphorus (2.5-4.5) mg/dL Total Bilirubin (0.1-1.2) mg/dL AST (5-40) units/L Alkaline Phosphatase (35-129) units/L Total Protein (6.3-8.2) g/dL Albumin (3.9-5) g/dL
[2020-12-27] MEDS ORDERED: MIDAZOLAM 5 MG/5 ML INJ MDV IV ONE ×3 (13:09→13:39)
[2020-12-27] MEDS ORDERED: ceFAZolin/STERILE WATER 2 GM/20 ML SYRINGE IV ONE (13:30)
[2020-12-27] MEDS ORDERED: LIDOCAINE 1%/EPINEPHRINE 1:100,000 VIAL (20 ML) INFILTRATI ONE (13:48)
[2020-12-27] MEDS: LIDOCAINE 1%/EPINEPHRINE 1:100,000 VIAL (20 ML) INFILTRATI ONE ×2 (13:58→14:04)
[2020-12-27] MEDS ORDERED: fentaNYL 100 MCG/2 ML INJ IV ONE ×2 (13:58→14:26)
--- NOTE | 2020-12-27 13:59 | Progress Note ---
Assessment and Plan Assessment and plan: This is a 60-year-old male with ESRD on peritoneal dialysis, Crohn's, hypertension, systolic CHF (EF 35%) who was admitted with sepsis, peritonitis, small bowel obstruction and now has gram-positive cocci bacteremia. Severe sepsis Streptococcus bovis bacteremia Gwendolyn albicans tracheal aspirate Small bowel obstruction/necrotic bowel s/p ex lap with extensive lysis of adhesions, 2 small bowel resections with primary anastomosis Acute hypoxic respiratory failure Gram-positive cocci bacteremia which speciated out to Streptococcus bovis Gwendolyn albicans in tracheal aspirate from 12/24 ESRD on PD, PermCath to be placed Transaminitis -[facility], surgery, infectious disease, nephrology, vascular surgery consulted, appreciate recommendations -S/p ex lap with extensive expectations, 2 small bowel resections with primary anastomosis with surgery on 12/23 -N.p.o. -PPN -NGT to LIS -IV antibiotics -TTE pending -12/27 permacath placement -Tobacco abuse cessation counseling -Mechanical ventilation, VAP bundle, wean as tolerated, CPAP trials -Transition to hemodialysis, MWF or as needed as tolerated -Trend CBC, BMP DVT/GI prophylaxis: PPI, heparin subcu, SCDs to bilateral lower extremities while in bed Disposition: ICU Critical care statement The high probability of a clinically significant, sudden or life threatening deterioration of the [pulmonary, cardiac, neuro, renal] system(s) required my full and direct attention, intervention and personal management. The aggregate critical care time was [35] minutes. This time is in addition to time spent performing reported procedures but includes the following: [x] Data Review and interpretation [x] Patient assessment and monitoring of vital signs [x] Documentation [x] Medication orders and management History Interval history: This is a 60 YO Male with ESRD on PD, GERD, Crohn's Disease, Nicotine Dependence, HTN, Systolic CHF(EF 35%) who presented to the emergency department on 12/22 with complaints of abdominal pain which began shortly after eating fast food rated 10/10 which is periumbilical, constant, associated with fever, nausea and multiple sites of vomiting and self-reported inability to undergo PD. In the emergency room patient underwent a CT scan of the abdomen/pelvis which revealed evidence of partial small bowel obstruction, symptoms were consistent with bacterial peritonitis. Patient was admitted to the hospital service with sepsis, peritonitis, and small bowel obstruction with consults to general surgery, nephrology, infectious disease and [facility]. 12/23. Patient had temperature 101.2 F, tachycardia and elevated lactic acid on admission. Meet sepsis criteria. Started on IV antibiotics. ID has been consulted. Surgery consulted this a.m.-advised laparoscopy. He remains on NG tube connected to suction. 12/24. Patient was noted to have peritonitis yesterday and patient undergoing exploratory laparotomy. Patient remained intubated after procedure and is in ICU. Now on broad-spectrum antibiotics. ID on board. 12/25. Remains mechanically ventilated and sedated. Temp 103 Fahrenheit. Antibiotics broadened-ID added fluconazole and Flagyl. Blood cultures ordered. Plan to repeat CT abdomen tomorrow if not better. Surgery following. 12/26: Patient remains on mechanical ventilation on CMV tidal line 550, rate of 1 4, PEEP of 8 and 30% FiO2 and sedated on fentanyl 4 micrograms. Today we will remove his Jeffery and CCM dropped his rate controlled him on CPAP. We will trend CBC given recent drop in H/H. 12/27: Patient remains intubated on CMV tidal volume 550, rate 12, PEEP 8 on 30% FiO2 at the time my examination. Patient's TPN will be changed to PPN. Patient's fentanyl drip will be changed to IV push fentanyl and have a permacath placed today and midline. Patient was placed on a spontaneous breathing trial was switched back to CMV prior to procedure. Hospitalist Physical - Constitutional Vitals: Temp Pulse Resp BP Pulse Ox 98.7 F 94 H 19 158/85 100 12/27/20 12:00 12/27/20 12:19 12/27/20 09:21 12/27/20 09:21 12/27/20 12:19 General appearance: Present: mild distress, other (sedated, resting comfortably on mechanical ventilation) - EENT Eyes: Present: PERRL, EOM intact ENT: hearing intact - Neck Neck: Absent: masses or JVD, cervical LAD - Respiratory Respiratory effort: normal Respiratory: bilateral: diminished - Cardiovascular Rhythm: regular Heart Sounds: Present: S1 & S2. Absent: systolic murmur, diastolic murmur - Extremities Extremities: no ischemia, pulses intact, pulses symmetrical, No edema, normal temperature, normal color, Full ROM Peripheral Pulses: within normal limits - Abdominal General gastrointestinal: soft, non-tender, non-distended, absent bowel sounds - Integumentary Integumentary: Present: clear, warm, dry - Psychiatric Psychiatric: cooperative - Neurologic Neurologic: moves all extremities - Allied Health Allied health notes reviewed: nursing, RT HEART Score - HEART Score Troponin: Troponin T 0.021 ng/mL (0.00-0.029) 12/22/20 14:38 Results - Labs CBC & Chem 7: 12/27/20 06:40 12/27/20 06:40 Labs: Laboratory Last Values WBC 4.4 K/mm3 (4.5-11.0) L 12/27/20 06:40 RBC 2.49 M/mm3 (3.65-5.03) L 12/27/20 06:40 Hgb 7.4 gm/dl (11.8-15.2) L 12/27/20 06:40 Hct 22.4 % (35.5-45.6) L 12/27/20 06:40 MCV 90 fl (84-94) 12/27/20 06:40 MCH 30 pg (28-32) 12/27/20 06:40 MCHC 33 % (32-34) 12/27/20 06:40 RDW 17.1 % (13.2-15.2) H 12/27/20 06:40 Plt Count 111 K/mm3 (140-440) L 12/27/20 06:40 Lymph % (Auto) 6.7 % (13.4-35.0) L 12/27/20 06:40 Hart % (Auto) 12.6 % (0.0-7.3) H 12/27/20 06:40 Eos % (Auto) 3.0 % (0.0-4.3) 12/27/20 06:40 Baso % (Auto) 0.1 % (0.0-1.8) 12/27/20 06:40 Lymph # (Auto) 0.3 K/mm3 (1.2-5.4) L 12/27/20 06:40 Hart # (Auto) 0.6 K/mm3 (0.0-0.8) 12/27/20 06:40 Eos # (Auto) 0.1 K/mm3 (0.0-0.4) 12/27/20 06:40 Baso # (Auto) 0.0 K/mm3 (0.0-0.1) 12/27/20 06:40 Add Manual Diff Complete 12/23/20 05:22 Total Counted 100 12/23/20 05:22 Seg Neutrophils % 77.6 % (40.0-70.0) H 12/27/20 06:40 Seg Neuts % (Manual) 93.0 % (40.0-70.0) H 12/23/20 05:22 Band Neutrophils % 4.0 % 12/23/20 05:22 Lymphocytes % (Manual) 1.0 % (13.4-35.0) L 12/23/20 05:22 Monocytes % (Manual) 2.0 % (0.0-7.3) 12/23/20 05:22 Nucleated RBC % Not Reportable 12/23/20 05:22 Seg Neutrophils # 3.4 K/mm3 (1.8-7.7) 12/27/20 06:40 Seg Neutrophils # Man 11.3 K/mm3 (1.8-7.7) H 12/23/20 05:22 Band Neutrophils # 0.5 K/mm3 12/23/20 05:22 Lymphocytes # (Manual) 0.1 K/mm3 (1.2-5.4) L 12/23/20 05:22 Abs React Lymphs (Man) 0.0 K/mm3 12/23/20 05:22 Monocytes # (Manual) 0.2 K/mm3 (0.0-0.8) 12/23/20 05:22 Eosinophils # (Manual) 0.0 K/mm3 (0.0-0.4) 12/23/20 05:22 Basophils # (Manual) 0.0 K/mm3 (0.0-0.1) 12/23/20 05:22 Metamyelocytes # 0.0 K/mm3 12/23/20 05:22 Myelocytes # 0.0 K/mm3 12/23/20 05:22 Promyelocytes # 0.0 K/mm3 12/23/20 05:22 Blast Cells # 0.0 K/mm3 12/23/20 05:22 WBC Morphology Not Reportable 12/23/20 05:22 Hypersegmented Neuts Not Reportable 12/23/20 05:22 Hyposegmented Neuts Not Reportable 12/23/20 05:22 Hypogranular Neuts Not Reportable 12/23/20 05:22 Smudge Cells Not Reportable 12/23/20 05:22 Toxic Granulation Not Reportable 12/23/20 05:22 Toxic Vacuolation Not Reportable 12/23/20 05:22 Dohle Bodies Not Reportable 12/23/20 05:22 Pelger-Huet Anomaly Not Reportable 12/23/20 05:22 Lamar Rods Not Reportable 12/23/20 05:22 Platelet Estimate Consistent w auto 12/23/20 05:22 Clumped Platelets Not Reportable 12/23/20 05:22 Plt Clumps, EDTA Not Reportable 12/23/20 05:22 Large Platelets Not Reportable 12/23/20 05:22 Giant Platelets Not Reportable 12/23/20 05:22 Platelet Satelliting Not Reportable 12/23/20 05:22 Plt Morphology Comment Not Reportable 12/23/20 05:22 RBC Morphology Not Reportable 12/23/20 05:22 Dimorphic RBCs Not Reportable 12/23/20 05:22 Polychromasia Not Reportable 12/23/20 05:22 Hypochromasia Not Reportable 12/23/20 05:22 Poikilocytosis Not Reportable 12/23/20 05:22 Anisocytosis 1+ 12/23/20 05:22 Microcytosis Not Reportable 12/23/20 05:22 Macrocytosis Not Reportable 12/23/20 05:22 Spherocytes Not Reportable 12/23/20 05:22 Pappenheimer Bodies Not Reportable 12/23/20 05:22 Sickle Cells Not Reportable 12/23/20 05:22 Target Cells Not Reportable 12/23/20 05:22 Tear Drop Cells Not Reportable 12/23/20 05:22 Ovalocytes Not Reportable 12/23/20 05:22 Helmet Cells Not Reportable 12/23/20 05:22 [place] Bodies Not Reportable 12/23/20 05:22 [place] Rings Not Reportable 12/23/20 05:22 [place] Cells Not Reportable 12/23/20 05:22 Bite Cells Not Reportable 12/23/20 05:22 Crenated Cell Not Reportable 12/23/20 05:22 Elliptocytes Not Reportable 12/23/20 05:22 Acanthocytes (Spur) Not Reportable 12/23/20 05:22 Rouleaux Not Reportable 12/23/20 05:22 Hemoglobin C Crystals Not Reportable 12/23/20 05:22 Schistocytes Not Reportable 12/23/20 05:22 Malaria parasites Not Reportable 12/23/20 05:22 Lucas Bodies Not Reportable 12/23/20 05:22 Hem Pathologist Commnt No 12/23/20 05:22 PT 13.8 Sec. (12.2-14.9) 12/22/20 14:38 INR 1.07 (0.87-1.13) 12/22/20 14:38 APTT 25.1 Sec. (24.2-36.6) 12/22/20 14:38 ABG pH 7.332 pH Units (7.350-7.450) L 12/27/20 03:40 POC ABG pCO2 28.2 mmHg (32.0-48.0) L 12/25/20 03:33 ABG pCO2 52.0 mm Hg 12/27/20 03:40 POC ABG pO2 62.8 mmHg (83-108) L 12/25/20 03:33 ABG pO2 81.7 mm Hg (80.0-90.0) 12/27/20 03:40 POC ABG HCO3 23.8 12/25/20 03:33 ABG HCO3 26.9 mmol/L (20.0-26.0) H 12/27/20 03:40 ABG O2 Saturation 95.0 % (95.0-99.0) 12/27/20 03:40 ABG O2 Content 9.5 (0.0-44) 12/27/20 03:40 POC ABG Base Excess 1.8 12/25/20 03:33 ABG Base Excess 0.8 mmol/L (-2.0-3.0) 12/27/20 03:40 ABG Hemoglobin 7.2 gm/dl (14.0-18.0) L 12/27/20 03:40 ABG Oxyhemoglobin 93.0 (94-98) L 12/25/20 03:33 ABG Carboxyhemoglobin 1.6 % (0.0-5.0) 12/27/20 03:40 ABG Methemoglobin 0.5 % (0.0-1.5) 12/27/20 03:40 ABG Sodium 130.3 mmol/L (136.0-145.0) L 12/25/20 03:33 ABG Potassium 4.3 mmol/L (3.40-4.50) 12/25/20 03:33 ABG Chloride 104.0 mmol/L (98-107) 12/25/20 03:33 ABG Glucose 97 mg/dL (65-95) H 12/25/20 03:33 Oxyhemoglobin 93.1 % (95.0-99.0) L 12/27/20 03:40 Carboxyhemoglobin 0.8 (0.5-1.5) 12/25/20 03:33 FiO2 30 % 12/27/20 03:40 FiO2 % 40.0 12/25/20 03:33 Sodium 137 mmol/L (137-145) 12/27/20 06:40 Potassium 4.2 mmol/L (3.6-5.0) 12/27/20 06:40 Chloride 99.2 mmol/L (98-107) 12/27/20 06:40 Carbon Dioxide 27 mmol/L (22-30) 12/27/20 06:40 Anion Gap 15 mmol/L 12/27/20 06:40 BUN 64 mg/dL (9-20) H 12/27/20 06:40 Creatinine 9.8 mg/dL (0.8-1.3) H 12/27/20 06:40 Estimated GFR 7 ml/min 12/27/20 06:40 BUN/Creatinine Ratio 7 % 12/27/20 06:40 Glucose 147 mg/dL (75-100) H 12/27/20 06:40 POC Glucose 134 mg/dL (70-105) H 12/27/20 11:22 Lactic Acid 1.40 mmol/L (0.7-2.0) 12/24/20 15:06 Calcium 8.3 mg/dL (8.4-10.2) L 12/27/20 06:40 Phosphorus 5.00 mg/dL (2.5-4.5) H 12/27/20 06:40 Magnesium 2.10 mg/dL (1.7-2.3) 12/27/20 06:40 Total Bilirubin 3.70 mg/dL (0.1-1.2) H 12/27/20 06:40 AST 72 units/L (5-40) H 12/27/20 06:40 ALT 46 units/L (7-56) 12/27/20 06:40 Alkaline Phosphatase 142 units/L (35-129) H 12/27/20 06:40 Ammonia 30.0 umol/L (25-60) 12/22/20 14:38 Troponin T 0.021 ng/mL (0.00-0.029) 12/22/20 14:38 Total Protein 5.1 g/dL (6.3-8.2) L D 12/27/20 06:40 Albumin 2.9 g/dL (3.9-5) L 12/27/20 06:40 Albumin/Globulin Ratio 1.3 % 12/27/20 06:40 Lipase 41 units/L (13-60) 12/22/20 14:38 Procalcitonin > 200.00 ng/mL (<0.15) 12/24/20 15:06 Arterial Blood Glucose 97 mg/dL (65-95) H 12/25/20 03:33 Arterial Blood Ionized Calcium 3.9 mg/dL (4.6-5.3) L 12/25/20 03:33 Urine Color Yellow (Yellow) 12/22/20 18:53 Urine Turbidity Clear (Clear) 12/22/20 18:53 Urine pH 7.0 (5.0-7.0) 12/22/20 18:53 Ur Specific Fluker 1.012 (1.003-1.030) 12/22/20 18:53 Urine Protein >500 mg/dL (Negative) 12/22/20 18:53 Urine Glucose (UA) Neg mg/dL (Negative) 12/22/20 18:53 Urine Ketones Neg mg/dL (Negative) 12/22/20 18:53 Urine Blood Neg (Negative) 12/22/20 18:53 Urine Nitrite Neg (Negative) 12/22/20 18:53 Urine Bilirubin Neg (Negative) 12/22/20 18:53 Urine Urobilinogen < 2.0 mg/dL (<2.0) 12/22/20 18:53 Ur Leukocyte Esterase Neg (Negative) 12/22/20 18:53 Urine WBC (Auto) < 1.0 /HPF (0.0-6.0) 12/22/20 18:53 Urine RBC (Auto) 1.0 /HPF (0.0-6.0) 12/22/20 18:53 Fluid Type Dialysate 12/22/20 Unknown Fluid Color Colorless 12/22/20 Unknown Fluid Appearance Cloudy 12/22/20 Unknown Fluid WBC 208 /mm3 12/22/20 Unknown Fluid RBC 45 /mm3 12/22/20 Unknown Fluid Seg Neutrophils 82.0 % 12/22/20 Unknown Fluid Lymphocytes 11.0 % 12/22/20 Unknown Fluid Reactive Lymphs 0 % 12/22/20 Unknown Fluid Monocytes 7.0 % 12/22/20 Unknown Fluid Eosinophils 0 % 12/22/20 Unknown Fluid Basophils 0 % 12/22/20 Unknown Random Vancomycin 13.7 ug/mL (0-40.0) 12/26/20 Unknown Hepatitis A IgM Ab Non-reactive (NonReactive) 12/23/20 11:38 Hep Bs Antigen Non-reactive (Negative) 12/23/20 11:38 Hep B Core IgM Ab Non-reactive (NonReactive) 12/23/20 11:38 Hepatitis C Antibody Non-reactive (NonReactive) 12/23/20 11:38 Blood Type A POSITIVE 12/23/20 11:40 Antibody Screen Negative 12/23/20 11:40 Crossmatch See Detail 12/23/20 11:40 Microbiology: Microbiology 12/22/20 Unknown Peritioneal Dialysate Peritoneal Dialysate Culture - Final 12/24/20 23:11 Peripheral/Venous Blood Culture - Preliminary NO GROWTH AFTER 48 HOURS 12/24/20 23:11 Peripheral/Venous Blood Culture - Preliminary NO GROWTH AFTER 48 HOURS 12/24/20 14:24 Tracheal Aspirate Sputum Culture - Final Gwendolyn Albicans 12/22/20 14:38 Peripheral/Venous Blood Culture - Preliminary Streptococcus Bovis Jeffery/IV: Voiding Method Incontinent Active Medications - Current Medications Current Medications: Generic Name Dose Route Start Last Admin Trade Name Freq PRN Reason Stop Dose Admin Albumin Human 25 gm 12/25/20 11:00 12/27/20 10:52 Albumin Human 25% (25 Gm/100 Ml) Inj IV 12/27/20 22:01 25 gm Q12HR THOMAS Administration Albuterol 2.5 mg 12/22/20 19:42 Albuterol 2.5 Mg/3 Ml Nebu IH Q4HRT PRN Shortness Of Breath Diphenhydramine HCl 25 mg 12/25/20 20:00 12/27/20 04:53 Diphenhydramine 50 Mg/Ml Vial IV 01/01/21 19:59 25 mg Q8H THOMAS Administration Famotidine 10 mg 12/24/20 13:00 12/27/20 10:52 Famotidine 20 Mg/2 Ml Inj IV 10 mg BID THOMAS Administration Fentanyl 50 mcg 12/24/20 11:35 Fentanyl 100 Mcg/2 Ml Inj IV Q10MIN PRN ANALGESIA Fentanyl 25 mcg 12/27/20 11:49 Fentanyl 100 Mcg/2 Ml Inj IV Q2H PRN Pain , Severe (7-10) Heparin Sodium (Porcine) 5,000 unit 12/24/20 10:00 12/26/20 21:05 Heparin 5,000 Unit/1 Ml Vial SUB-Q 5,000 unit Q12HR THOMAS Administration Hydrophilic Ointment 1 applic 12/24/20 12:03 Lip Therapy Vaseline TP Q2H PRN Dry Lips Sodium Chloride 100 mls @ 999 mls/hr 12/23/20 11:03 Nacl 0.9% IV RYLAND PRN Hypotension Propofol 1,000 mg in 100 mls @ 5.484 mls/hr 12/23/20 19:00 12/24/20 18:54 Diprivan 10 Mg/Ml IV 0 mcg/kg/min TITR THOMAS 0 mls/hr Titration Protocol 10 MCG/KG/MIN Fentanyl Citrate 2,000 mcg in 100 mls @ 4.57 mls/hr 12/24/20 12:00 12/27/20 11:30 Fentanyl Drip Premix IV 2 mcg/kg/hr TITR THOMAS 9.14 mls/hr Titration Protocol 1 MCG/KG/HR Metronidazole 500 mg in 100 mls @ 100 mls/hr 12/25/20 14:00 12/27/20 05:54 Flagyl 500 Mg/100 Ml IV 100 mls/hr Q8HR THOMAS Administration Protocol Cefepime HCl 2 gm in 100 mls @ 200 mls/hr 12/26/20 11:00 12/26/20 11:00 Cefepime/Ns 2 Gm/100 Ml IV Infused Q24H THOMAS Infusion Protocol Amino Acids/Electrolytes/Dextrose 1,560 mls @ 65 mls/hr 12/26/20 20:00 12/26/20 20:00 Tpn Adult IV 12/27/20 19:59 65 mls/hr DAILY@[email or web address] [facility] Administration Protocol Amino Acids/Electrolytes/Dextrose 2,016 mls @ 84 mls/hr 12/27/20 20:00 Tpn Adult IV 12/28/20 19:59 DAILY@1999 [facility] Protocol Fluconazole 200 mg in 100 mls @ 100 mls/hr 12/27/20 13:00 Diflucan IV Q24H [facility] Protocol Morphine Sulfate 2 mg 12/23/20 10:00 12/27/20 01:36 Morphine 2 Mg/1 Ml Inj IV 2 mg Q4H PRN Administration Pain, Moderate (4-6) Multi-Ingred Cream/Lotion/Oil/Oint 1 applic 12/24/20 12:03 Mineral Oil/Petrolatum, White Ophth Oint 3.5 Gm OU Q4H PRN Dry Eye(s) Ondansetron HCl 4 mg 12/22/20 19:42 Ondansetron 4 Mg/2 Ml Inj IV Q8H PRN Nausea And Vomiting Sodium Chloride 10 ml 12/22/20 22:00 12/27/20 10:52 Sodium Chloride 0.9% 10 Ml Flush Syringe IV 10 ml BID THOMAS Administration Sodium Chloride 10 ml 12/22/20 19:42 Sodium Chloride 0.9% 10 Ml Flush Syringe IV PRN PRN LINE FLUSH Nutrition/Malnutrition Assess - Dietary Evaluation Nutrition/Malnutrition Findings: Nutrition Notes Start: 12/24/20 12:36 Freq: Status: Active Protocol: Document 12/27/20 11:40 (Rec: 12/27/20 11:51 [email or web address]) Nutrition Notes Initial or Follow up Reassessment Current Diagnosis CKD (stage V CKD),Hypertension ,Heart Failure Other Pertinent Diagnosis bacterial peritonitis, on HD MWF/PRN, SBO, Crohns disease Current Diet NPO Labs/Tests BUN 64 Cr 9.8 Ca 8.3 Phos 5 Pertinent Medications Reviewed Height 5 ft 7 in Weight 85.6 kg [place] Body Weight (kg) 67.27 BMI 29.5 Weight change and time frame Weight change noted, likely due to HD Weight Status Overweight Subjective/Other Information F/u for TPN start and updated labs. CPN day 2. Pt remains NPO. Per RN, pt to have Permacath placed today and will have peripheral line placement for PPN. Per carolyn EUBAKNS to increase fluid 2/2 no fluid restriction. Percent of energy/protein needs met: 42%/68% Burn Absent Trauma Absent Difficulty In Swallowing Skin Integrity/Comment Intact Current % PO Negligible Minimum of two criteria No physical signs of malnutrition #1 Nutrition Diagnosis Inadequate oral intake Diagnosis Progress(for reassessment Continues documentation) Is patient on ventilator? Yes Is Patient Ambulatory and/or Out of Bed No REE-([facility]-confined to bed) [phone] Calculation Used for Recommendations [facility] Additional Notes protein needs: >103 g(>1.2g/kg ) fluid needs: 1mL/kcal or per MD order Nutrition Intervention Change Diet Order: Continue PPN Nutrition Support: PPN at 84ml/hr regimen: AA 4% Dextrose 7.9% Na 97mEq Ca 6 mEq Mag 10 mEq Osmolality 906mOsm Kcal 864 Protein (gm) 80 Carbohydrates (gm) 160 Fat (gm) 0 Fluid (mL) 2,016 Goal #1 Meet kcal and protein needs as best as possible Anticipated Discharge Needs: unable to determine at this time Follow-Up By: 12/28/20 Additional Comments Labs in AM, BMP, Mag and Phos
[2020-12-27] MEDS ORDERED: HEPARIN 10,000 UNIT/1 ML VIAL IV ONE (14:18)
[2020-12-27] MEDS ORDERED: MIDAZOLAM 2 MG/2 ML INJ IV ONE (14:26)
[2020-12-27] MEDS: HEPARIN 5,000 UNIT/1 ML VIAL SUB-Q SCH ×2 (14:59→21:14)
[2020-12-27] MEDS: CEFEPIME/NS 2 GM/100 ML 2 GM/100 ML BAG IV SCH (15:00)
[2020-12-27] MEDS: FLUCONAZOLE 200 MG 200 MG/100 ML BAG IV SCH (15:04)
--- NOTE | 2020-12-27 15:25 | Operative Report ---
Operative Report Operative Report: EXAM: 1. Ultrasound-guided puncture of the left internal jugular vein 2. Fluoroscopic-guided placement of a left internal jugular tunneled cuffed hemodialysis catheter. 3. Ultrasound-guided puncture of the left internal jugular vein 4. Fluoroscopic-guided placement of a left internal jugular tunneled cuffed small bore catheter. DATE: 12/27/2010 INDICATION: MEDICATIONS: Please see nursing report for full details. DEVICES: 27 cm tip to cuff 15 Fr dual lumen hemodialysis catheter small bore dual lumen powerline [employer]: LAXMI CHISHOLM MD CONTRAST: None PROCEDURE: The risks, benefits, and alternatives were discussed and informed consent was obtained. The patient was transported to the angiography suite in satisfactory/stable condition and was transported onto the angiography table. The necks were prepped and draped in a sterile fashion. The right neck catheter was evaluated with ultrasound. The right neck catheter terminated in the right subclavian vein. The PICC line was aspirated and then contrast was injected demonstrating venous position. PICC line was then reassembled. I did not want to place a right subclavian vein PermCath as this may limit future access options, and therefore I decided to place left internal jugular venous catheters with plan for removal of the right subclavian vein catheter tomorrow. Therefore, I switched to the left neck. The patient's left internal jugular vein was assessed with ultrasound and determined to be patent prior to procedure. The patient was prepped and draped in a sterile fashion. The puncture site was anesthetized. Under sonographic guidance, the left internal jugular vein was punctured with a 21-gauge micropuncture needle and a 0.018 inch wire was advanced into the inferior vena cava. The micropuncture needle was exchanged for a transitional dilator and the wire was retracted into the right atrium to marilou intravascular distance. The wire and inner dilator were removed. 0.035 inch Amplatz wire was advanced through the transitional dilator into the inferior vena cava. A suitable exit site was identified on the patient's chest inferior and lateral to the venotomy. The site was anesthetized with local anesthetic and the track was anesthetized. Dermatotomy was made. The PermCath was attached to the [employer] device and tunneled between the dermatotomy to the venotomy. Over the 0.035 inch wire, serial dilatation was performed with ultimate placement of a peel-away sheath. The catheter was advanced through the peel- away sheath after the wire was removed and positioned centrally under fluoroscopic guidance. The peel-away sheath was removed. 4-0 Vicryl suture was used to close the venotomy and Dermabond was then applied. 2-0 Ethilon suture was used to secure the catheter at the dermatotomy. Sterile dressing and Biopatch applied. The catheter was charged with heparin 1000 units/mL of space. Under sonographic guidance, the left internal jugular vein was punctured with a second 21-gauge micropuncture needle and a 0.018 inch wire was advanced into the inferior vena cava. The micropuncture needle was exchanged for a transitional dilator and the wire was retracted into the right atrium to marilou intravascular distance. The wire and inner dilator were removed. A different 0.018 inch wire was advanced through the transitional dilator into the inferior vena cava. A suitable exit site was identified on the patient's chest inferior and lateral to the venotomy. The site was anesthetized with local anesthetic and the track was anesthetized. Dermatotomy was made. The small bore dual lumen tunneled catheter was attached to the tunneling device and tunneled between the derm atotomy to the venotomy. Over the 0.018 inch wire, serial dilatation was performed with ultimate placement of a peel-away sheath. The catheter was advanced through the peel- away sheath after the wire was removed and positioned centrally under fluoroscopic guidance. The peel-away sheath was removed. 4-0 Vicryl suture was used to close the venotomy and Dermabond was then applied. 2-0 Ethilon suture was used to secure the catheter at the dermatotomy. Sterile dressing and Biopatch applied. The catheter was charged with heparinized saline. The patient was transferred from the angiography suite back to the floor in stable condition. FINDINGS: 1. Excellent flow was obtained through the dialysis catheter with 20 mL syringes. 2. Excellent flow was obtained through the small bore tunneled catheter with 10 mL syringes. 3. The catheter tips are in the right atrium. IMPRESSION: 1. Successful ultrasound and fluoroscopically guided placement of a left internal jugular tunneled cuffed hemodialysis catheter. 2. Successful ultrasound and fluoroscopically guided placement of a left internal jugular tunneled cuffed small bore catheter.
[2020-12-27] MEDS ORDERED: TOTAL PARENTERAL NUTRITION 2,016 ML IV SCH (20:00)
[2020-12-28] MEDS: diphenhydrAMINE 50 MG/ML VIAL IV SCH ×2 (04:56→13:27)
[2020-12-28] MEDS: metroNIDAZOLE/NS 500 MG/100 ML 500 MG/100 ML BAG IV SCH (05:57)
[2020-12-28 06:04] LABS: Hematocrit 21.5 % (35.5-45.6); Hemoglobin 7.2 gm/dl (11.8-15.2); Mean Corpuscular HGB Conc 34 % (32-34); Mean Corpuscular Volume 90 fl (84-94); Platelet Count 112 K/mm3 (140-440); Red Cell Distribution Width 17.4 % (13.2-15.2)
[2020-12-28 06:07] LABS: Lymphocytes % (Auto) 6.5 % (13.4-35.0)
[2020-12-28 06:08] LABS: Eosinophils # (Auto) 0.1 K/mm3 (0.0-0.4); Eosinophils % (Auto) 3.2 % (0.0-4.3); Lymphocytes # (Auto) 0.3 K/mm3 (1.2-5.4); Monocytes # (Auto) 0.7 K/mm3 (0.0-0.8); Monocytes % (Auto) 16.7 % (0.0-7.3)
[2020-12-28 06:39] LABS: Albumin 2.9 g/dL (3.9-5); Calcium 8.2 mg/dL (8.4-10.2)
[2020-12-28] MEDS: HEPARIN 5,000 UNIT/1 ML VIAL SUB-Q SCH ×2 (09:14→21:39)
[2020-12-28] MEDS: FAMOTIDINE 20 MG/2 ML INJ IV SCH ×2 (09:14→21:39)
--- NOTE | 2020-12-28 09:32 | Progress Note ---
Assessment and Plan Assessment: - ESRD on peritoneal dialysis. He has been on peritoneal dialysis for the past 2 years. No history of peritonitis. - Abdominal pain. CT scan without organ perforation. 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 Had LIJ permcath placed Objective - Exam Narrative Exam: - General Limitations: Physical Limitation General appearance: alert but sedated, on vent, in no acute distress - Head Head exam: Present: atraumatic, normocephalic - Eye Eye exam: Present: normal appearance, EOMI - ENT ENT exam: Present: ET tube - Neck Neck exam: Present: normal inspection - Respiratory Respiratory exam: mechanical lung sounds noted - Cardiovascular Cardiovascular Exam: Present: normal rhythm, tachycardia - GI/Abdominal GI/Abdominal exam: Present: soft, distended (slightly), tenderness (periumbilical ) - Extremities Exam Extremities exam: Present: normal inspection; [facility]J CVC noted - Neurological Exam Neurological exam: alert but sedated - Psychiatric Psychiatric exam: opens eyes - Skin Skin exam: Present: warm, dry, intact, normal color - Vital Signs Vital signs: Vital Signs - 12hr 12/27/20 12/27/20 12/27/20 21:40 21:50 22:00 Temperature Pulse Rate 109 H 110 H 94 H Pulse Rate [ From Monitor] Respiratory 13 12 12 Rate Blood Pressure 110/66 110/66 110/72 O2 Sat by Pulse 98 97 98 Oximetry 12/27/20 12/27/20 12/27/20 22:10 22:20 22:26 Temperature Pulse Rate 93 H 98 H 96 H Pulse Rate [ From Monitor] Respiratory 12 11 L 12 Rate Blood Pressure 110/72 110/72 110/72 O2 Sat by Pulse 99 100 99 Oximetry 12/27/20 12/27/20 12/27/20 22:30 22:40 22:50 Temperature Pulse Rate 94 H 96 H 95 H Pulse Rate [ From Monitor] Respiratory 12 12 12 Rate Blood Pressure 110/69 110/69 110/69 O2 Sat by Pulse 99 98 99 Oximetry 12/27/20 12/27/20 12/27/20 23:00 23:10 23:20 Temperature Pulse Rate 102 H 92 H 91 H Pulse Rate [ From Monitor] Respiratory 13 12 14 Rate Blood Pressure 112/73 112/73 112/73 O2 Sat by Pulse 98 97 98 Oximetry 12/27/20 12/27/20 12/27/20 23:30 23:40 23:49 Temperature 98.2 F Pulse Rate 96 H 93 H Pulse Rate [ From Monitor] Respiratory 15 14 Rate Blood Pressure 119/81 119/81 O2 Sat by Pulse 99 98 Oximetry 12/27/20 12/28/20 12/28/20 23:50 00:00 00:10 Temperature Pulse Rate 81 91 H 99 H Pulse Rate [ 91 H From Monitor] Respiratory 13 19 22 Rate Blood Pressure 119/81 118/71 118/71 O2 Sat by Pulse 98 98 99 Oximetry 12/28/20 12/28/20 12/28/20 00:20 00:30 00:40 Temperature Pulse Rate 103 H 87 93 H Pulse Rate [ From Monitor] Respiratory 22 23 24 Rate Blood Pressure 118/71 112/76 112/76 O2 Sat by Pulse 98 99 99 Oximetry 12/28/20 12/28/20 12/28/20 00:50 01:00 01:10 Temperature Pulse Rate 93 H 92 H 95 H Pulse Rate [ From Monitor] Respiratory 18 20 18 Rate Blood Pressure 112/76 112/70 112/70 O2 Sat by Pulse 98 98 98 Oximetry 12/28/20 12/28/20 12/28/20 01:20 01:30 01:40 Temperature Pulse Rate 127 H 98 H 89 Pulse Rate [ From Monitor] Respiratory 24 18 20 Rate Blood Pressure 112/70 120/78 120/78 O2 Sat by Pulse 98 98 Oximetry 12/28/20 12/28/20 12/28/20 01:50 02:00 02:10 Temperature Pulse Rate 92 H 106 H 97 H Pulse Rate [ From Monitor] Respiratory 18 26 H 17 Rate Blood Pressure 120/78 123/81 123/81 O2 Sat by Pulse 100 100 100 Oximetry 12/28/20 12/28/20 12/28/20 02:20 02:30 02:40 Temperature Pulse Rate 87 92 H 105 H Pulse Rate [ From Monitor] Respiratory 21 22 20 Rate Blood Pressure 120/78 130/74 130/74 O2 Sat by Pulse 100 100 Oximetry 12/28/20 12/28/20 12/28/20 02:50 03:00 03:10 Temperature Pulse Rate 91 H 99 H 105 H Pulse Rate [ From Monitor] Respiratory 22 22 22 Rate Blood Pressure 130/74 128/78 128/78 O2 Sat by Pulse 100 100 100 Oximetry 12/28/20 12/28/20 12/28/20 03:20 03:30 03:40 Temperature Pulse Rate 103 H 95 H 86 Pulse Rate [ From Monitor] Respiratory 22 19 18 Rate Blood Pressure 128/78 124/79 124/79 O2 Sat by Pulse 100 100 100 Oximetry 12/28/20 12/28/20 12/28/20 03:49 03:50 04:00 Temperature 98.6 F Pulse Rate 86 92 H Pulse Rate [ 92 H From Monitor] Respiratory 19 20 Rate Blood Pressure 124/79 122/74 O2 Sat by Pulse 100 100 Oximetry 12/28/20 12/28/20 12/28/20 04:10 04:18 04:20 Temperature Pulse Rate 99 H 89 88 Pulse Rate [ From Monitor] Respiratory 24 21 Rate Blood Pressure 122/74 122/74 122/74 O2 Sat by Pulse 100 100 100 Oximetry 12/28/20 12/28/20 12/28/20 04:30 04:40 04:50 Temperature Pulse Rate 103 H 104 H 90 Pulse Rate [ From Monitor] Respiratory 22 21 19 Rate Blood Pressure 120/75 120/75 120/75 O2 Sat by Pulse 100 100 100 Oximetry 12/28/20 12/28/20 12/28/20 05:00 05:10 05:20 Temperature Pulse Rate 97 H 108 H 86 Pulse Rate [ From Monitor] Respiratory 20 20 21 Rate Blood Pressure 128/73 128/73 120/75 O2 Sat by Pulse 100 100 100 Oximetry 12/28/20 12/28/20 12/28/20 05:30 05:40 05:50 Temperature Pulse Rate 104 H 91 H 117 H Pulse Rate [ From Monitor] Respiratory 18 17 12 Rate Blood Pressure 123/75 123/75 123/75 O2 Sat by Pulse 100 100 100 Oximetry 12/28/20 12/28/20 12/28/20 06:00 06:10 06:20 Temperature Pulse Rate 86 113 H 100 H Pulse Rate [ From Monitor] Respiratory 15 14 13 Rate Blood Pressure 126/73 126/73 123/75 O2 Sat by Pulse 100 100 100 Oximetry 12/28/20 12/28/20 12/28/20 06:30 06:40 06:50 Temperature Pulse Rate 97 H 96 H 103 H Pulse Rate [ From Monitor] Respiratory 14 16 14 Rate Blood Pressure 121/77 121/77 121/77 O2 Sat by Pulse 100 100 100 Oximetry 12/28/20 12/28/20 12/28/20 07:00 07:10 07:20 Temperature Pulse Rate 100 H 124 H 103 H Pulse Rate [ From Monitor] Respiratory 15 22 14 Rate Blood Pressure 123/82 123/82 123/82 O2 Sat by Pulse 100 100 100 Oximetry 12/28/20 12/28/20 12/28/20 07:30 07:40 07:42 Temperature Pulse Rate 101 H 111 H 111 H Pulse Rate [ From Monitor] Respiratory 14 14 Rate Blood Pressure 119/77 119/77 119/77 O2 Sat by Pulse 100 100 100 Oximetry 12/28/20 12/28/20 12/28/20 07:50 08:00 08:06 Temperature 98.6 F Pulse Rate 109 H 107 H Pulse Rate [ 100 H From Monitor] Respiratory 17 17 Rate Blood Pressure 119/77 119/77 O2 Sat by Pulse 100 100 Oximetry - Lab 12/28/20 05:40 12/28/20 05:40 Most recent lab results ABG pH 7.474 (7.320-7.450) H 12/28/20 Unknown ABG pCO2 52.0 mm Hg 12/27/20 03:40 ABG pO2 81.7 mm Hg (80.0-90.0) 12/27/20 03:40 ABG HCO3 26.9 mmol/L (20.0-26.0) H 12/27/20 03:40 ABG O2 Saturation 96.8 (0-100) 12/28/20 Unknown Calcium 8.2 mg/dL (8.4-10.2) L 12/28/20 05:40 Phosphorus 3.30 mg/dL (2.5-4.5) D 12/28/20 05:40 Magnesium 2.40 mg/dL (1.7-2.3) H 12/28/20 05:40 Medications & Allergies - Medications Allergies/Adverse Reactions: Allergies No Known Allergies Allergy (Verified 06/09/20 15:27) Home Medications: Home Medications Medication Instructions Recorded Confirmed Last Taken Type Albuterol Mdi (or & Nicu Only) 2 puff IH QID PRN #1 inhalation 04/01/17 11/01/20 10/31/20 09:00 Rx [ProAir HFA Inhaler] Calcium Acetate 667 mg PO DAILY 04/20/20 11/01/20 10/31/20 09:00 History Centrum Men's Tablet 1 tab PO DAILY 04/20/20 11/01/20 10/31/20 09:00 History Cinacalcet 30 mg PO DAILY 04/20/20 11/01/20 10/31/20 09:00 History Dialyvite with Zinc Tablet 1 tab PO DAILY 04/20/20 11/01/20 10/31/20 09:00 History Magnesium 250 mg PO BID 04/20/20 11/01/20 10/31/20 17:00 History Triamcinolone 0.1% 1 1000units TRANSDERMA DAILY 04/20/20 11/01/20 10/31/20 09:00 History Vit B12/Folic Acid/B6/Aa No.15 1,000 mg PO DAILY 04/20/20 11/01/20 10/31/20 09:00 History amLODIPine 10 mg PO DAILY 06/09/20 11/01/20 10/31/20 09:00 History AtorvaSTATin 40 mg PO HS 11/01/20 11/01/20 10/31/20 21:00 History Benadryl 25 mg PO HS 11/01/20 11/01/20 10/31/20 21:00 History Diclofenac 1 TRANSDERMA QID 11/01/20 10/31/20 19:00 History Fluticasone Propionate 1 spray INTRANASAL DAILY 11/01/20 11/01/20 10/31/20 09:00 History Vitamin D3 2,000 units 11/01/20 10/31/20 09:00 History carvediloL 12.5 mg PO DAILY 11/01/20 11/01/20 10/31/20 09:00 History hydrALAZINE 100 mg PO TID 11/01/20 11/01/20 10/31/20 19:00 History Active Medications: Generic Name Dose Route Start Last Admin Trade Name Freq PRN Reason Stop Dose Admin Albuterol 2.5 mg 12/22/20 19:42 Albuterol 2.5 Mg/3 Ml Nebu IH Q4HRT PRN Shortness Of Breath Diphenhydramine HCl 25 mg 12/25/20 20:00 12/28/20 04:56 Diphenhydramine 50 Mg/Ml Vial IV 01/01/21 19:59 25 mg Q8H THOMAS Administration Famotidine 10 mg 12/24/20 13:00 12/28/20 09:14 Famotidine 20 Mg/2 Ml Inj IV 10 mg BID THOMAS Administration Fentanyl 50 mcg 12/24/20 11:35 Fentanyl 100 Mcg/2 Ml Inj IV Q10MIN PRN ANALGESIA Fentanyl 25 mcg 12/27/20 11:49 Fentanyl 100 Mcg/2 Ml Inj IV Q2H PRN Pain , Severe (7-10) Heparin Sodium (Porcine) 5,000 unit 12/24/20 10:00 12/28/20 09:14 Heparin 5,000 Unit/1 Ml Vial SUB-Q 5,000 unit Q12HR THOMAS Administration Hydrophilic Ointment 1 applic 12/24/20 12:03 Lip Therapy Vaseline TP Q2H PRN Dry Lips Sodium Chloride 100 mls @ 999 mls/hr 12/23/20 11:03 Nacl 0.9% IV RYLAND PRN Hypotension Propofol 1,000 mg in 100 mls @ 5.484 mls/hr 12/23/20 19:00 12/24/20 18:54 Diprivan 10 Mg/Ml IV 0 mcg/kg/min TITR THOMAS 0 mls/hr Titration Protocol 10 MCG/KG/MIN Fentanyl Citrate 2,000 mcg in 100 mls @ 4.57 mls/hr 12/24/20 12:00 12/28/20 04:00 Fentanyl Drip Premix IV 1 mcg/kg/hr TITR THOMAS 4.57 mls/hr Titration Protocol 1 MCG/KG/HR Metronidazole 500 mg in 100 mls @ 100 mls/hr 12/25/20 14:00 12/28/20 05:57 Flagyl 500 Mg/100 Ml IV 100 mls/hr Q8HR THOMAS Administration Protocol Cefepime HCl 2 gm in 100 mls @ 200 mls/hr 12/26/20 11:00 12/27/20 15:30 Cefepime/Ns 2 Gm/100 Ml IV Infused Q24H THOMAS Infusion Protocol Amino Acids/Electrolytes/Dextrose 2,016 mls @ 84 mls/hr 12/27/20 20:00 12/27/20 20:15 Tpn Adult IV 12/28/20 19:59 84 mls/hr DAILY@2000 THOMAS Administration Protocol Fluconazole 200 mg in 100 mls @ 100 mls/hr 12/27/20 13:00 12/27/20 16:05 Diflucan IV Infused Q24H THOMAS Infusion Protocol Morphine Sulfate 2 mg 12/23/20 10:00 12/27/20 01:36 Morphine 2 Mg/1 Ml Inj IV 2 mg Q4H PRN Administration Pain, Moderate (4-6) Multi-Ingred Cream/Lotion/Oil/Oint 1 applic 12/24/20 12:03 Mineral Oil/Petrolatum, White Ophth Oint 3.5 Gm OU Q4H PRN Dry Eye(s) Ondansetron HCl 4 mg 12/22/20 19:42 Ondansetron 4 Mg/2 Ml Inj IV Q8H PRN Nausea And Vomiting Sodium Chloride 10 ml 12/22/20 22:00 12/28/20 09:15 Sodium Chloride 0.9% 10 Ml Flush Syringe IV 10 ml BID THOMAS Administration Sodium Chloride 10 ml 12/22/20 19:42 Sodium Chloride 0.9% 10 Ml Flush Syringe IV PRN PRN LINE FLUSH
--- NOTE | 2020-12-28 11:18 | Progress Note ---
Assessment and Plan Assessment and plan: This is a 60-year-old male with ESRD on peritoneal dialysis, Crohn's, hypertension, systolic CHF (EF 35%) who was admitted with sepsis, peritonitis, small bowel obstruction and now has gram-positive cocci bacteremia. Sepsis Streptococcus bovis bacteremia/Prevotella bacteremia Gwendolyn albicans tracheal aspirate Small bowel obstruction/necrotic bowel s/p ex lap with extensive lysis of adhesions, 2 small bowel resections with primary anastomosis Acute hypoxic respiratory failure Gram-positive cocci bacteremia which speciated out to Streptococcus bovis Gwendolyn albicans in tracheal aspirate from 12/24 ESRD on PD, PermCath to be placed Transaminitis Systolic CHF(EF 35%) Crohn's disease Hypertension -CCM, surgery, infectious disease, nephrology, vascular surgery, cardiology consulted, appreciate recommendations -S/p ex lap with extensive expectations, 2 small bowel resections with primary anastomosis with surgery on 12/23 -s/p PICC and Permacath placement with vascular surgery on 12/27 -Transitioned to HD from PD -HD per nephro -Obtain stat EKG -NPO -PPN -NGT to LIS -IV antibiotics -Echo pending -Mechanical ventilation, VAP bundle, wean as tolerated, CPAP trials -Tobacco abuse cessation counseling -Trend CBC, BMP DVT/GI prophylaxis: PPI, heparin subcu, SCDs to bilateral lower extremities while in bed Disposition: ICU Critical care statement The high probability of a clinically significant, sudden or life threatening deterioration of the [pulmonary, cardiac, neuro, renal] system(s) required my full and direct attention, intervention and personal management. The aggregate critical care time was [35] minutes. This time is in addition to time spent performing reported procedures but includes the following: [x] Data Review and interpretation [x] Patient assessment and monitoring of vital signs [x] Documentation [x] Medication orders and management History Interval history: This is a 60 YO Male with ESRD on PD, GERD, Crohn's Disease, Nicotine Dependence, HTN, Systolic CHF(EF 35%) who presented to the emergency department on 12/22 with complaints of abdominal pain which began shortly after eating fast food rated 10/10 which is periumbilical, constant, associated with fever, nausea and multiple sites of vomiting and self-reported inability to undergo PD. In the emergency room patient underwent a CT scan of the abdomen/pelvis which revealed evidence of partial small bowel obstruction, symptoms were consistent with bacterial peritonitis. Patient was admitted to the hospital service with sepsis, peritonitis, and small bowel obstruction with consults to general surgery, nephrology, infectious disease and [facility]. 12/23. Patient had temperature 101.2 F, tachycardia and elevated lactic acid on admission. Meet sepsis criteria. Started on IV antibiotics. ID has been consulted. Surgery consulted this a.m.-advised laparoscopy. He remains on NG tube connected to suction. 12/24. Patient was noted to have peritonitis yesterday and patient undergoing exploratory laparotomy. Patient remained intubated after procedure and is in ICU. Now on broad-spectrum antibiotics. ID on board. 12/25. Remains mechanically ventilated and sedated. Temp 103 Fahrenheit. Antibiotics broadened-ID added fluconazole and Flagyl. Blood cultures ordered. Plan to repeat CT abdomen tomorrow if not better. Surgery following. 12/26: Patient remains on mechanical ventilation on CMV tidal line 550, rate of 14, PEEP of 8 and 30% FiO2 and sedated on fentanyl 4 micrograms. Today we will remove his Jeffery and [facility] dropped his rate controlled him on CPAP. We will trend CBC given recent drop in H/H. 12/27: Patient remains intubated on CMV tidal volume 550, rate 12, PEEP 8 on 30% FiO2 at the time my examination. Patient's TPN will be changed to PPN. Patient's fentanyl drip will be changed to IV push fentanyl and have a permacath placed today and midline. Patient was placed on a spontaneous breathing trial was switched back to CMV prior to procedure. 12/28: Patient on fentanyl but awake and follows commands. At the time of my examination he was on a CPAP trial and is scheduled to receive HD today. s/o permacath and PICC placement with vascular yesterday. His blood culture grew Prevotella and addition to Streptococcus bovis. This evening Dr. Spicer attempted to extubate the patient and his heart rate went to the 180s. Stat EKG obtained and cardiology consulted. Hospitalist Physical - Constitutional Vitals: Temp Pulse Resp BP Pulse Ox 98.6 F 93 H 13 128/82 100 12/28/20 09:00 12/28/20 11:00 12/28/20 10:10 12/28/20 11:00 12/28/20 10:10 General appearance: Present: mild distress, other (sedated, resting comfortably on mechanical ventilation) - EENT Eyes: Present: PERRL, EOM intact ENT: poor dentition - Neck Neck: Present: normal ROM - Respiratory Respiratory effort: normal Respiratory: bilateral: CTA - Cardiovascular Rhythm: irregularly irregular Heart Sounds: Present: S1 & S2. Absent: systolic murmur, diastolic murmur - Extremities Extremities: no ischemia, pulses intact, pulses symmetrical, normal temperature, normal color - Abdominal General gastrointestinal: soft, non-tender, non-distended, hypoactive bowel sounds - Integumentary Integumentary: Present: warm, dry - Psychiatric Psychiatric: cooperative - Neurologic Neurologic: moves all extremities HEART Score - HEART Score Troponin: Troponin T 0.021 ng/mL (0.00-0.029) 12/22/20 14:38 Results - Labs CBC & Chem 7: 12/28/20 05:40 12/28/20 05:40 Labs: Laboratory Last Values WBC 4.3 K/mm3 (4.5-11.0) L 12/28/20 05:40 RBC 2.40 M/mm3 (3.65-5.03) L 12/28/20 05:40 Hgb 7.2 gm/dl (11.8-15.2) L 12/28/20 05:40 Hct 21.5 % (35.5-45.6) L 12/28/20 05:40 MCV 90 fl (84-94) 12/28/20 05:40 MCH 30 pg (28-32) 12/28/20 05:40 MCHC 34 % (32-34) 12/28/20 05:40 RDW 17.4 % (13.2-15.2) H 12/28/20 05:40 Plt Count 112 K/mm3 (140-440) L 12/28/20 05:40 Lymph % (Auto) 6.5 % (13.4-35.0) L 12/28/20 05:40 [place] % (Auto) 16.7 % (0.0-7.3) H 12/28/20 05:40 Eos % (Auto) 3.2 % (0.0-4.3) 12/28/20 05:40 Baso % (Auto) 1.0 % (0.0-1.8) 12/28/20 05:40 Lymph # (Auto) 0.3 K/mm3 (1.2-5.4) L 12/28/20 05:40 [place] # (Auto) 0.7 K/mm3 (0.0-0.8) 12/28/20 05:40 Eos # (Auto) 0.1 K/mm3 (0.0-0.4) 12/28/20 05:40 Baso # (Auto) 0.0 K/mm3 (0.0-0.1) 12/28/20 05:40 Add Manual Diff Complete 12/23/20 05:22 Total Counted 100 12/23/20 05:22 Seg Neutrophils % 71.1 % (40.0-70.0) H 12/28/20 05:40 Seg Neuts % (Manual) 93.0 % (40.0-70.0) H 12/23/20 05:22 Band Neutrophils % 4.0 % 12/23/20 05:22 Lymphocytes % (Manual) 1.0 % (13.4-35.0) L 12/23/20 05:22 Monocytes % (Manual) 2.0 % (0.0-7.3) 12/23/20 05:22 Nucleated RBC % Not Reportable 12/23/20 05:22 Seg Neutrophils # 3.1 K/mm3 (1.8-7.7) 12/28/20 05:40 Seg Neutrophils # Man 11.3 K/mm3 (1.8-7.7) H 12/23/20 05:22 Band Neutrophils # 0.5 K/mm3 12/23/20 05:22 Lymphocytes # (Manual) 0.1 K/mm3 (1.2-5.4) L 12/23/20 05:22 Abs React Lymphs (Man) 0.0 K/mm3 12/23/20 05:22 Monocytes # (Manual) 0.2 K/mm3 (0.0-0.8) 12/23/20 05:22 Eosinophils # (Manual) 0.0 K/mm3 (0.0-0.4) 12/23/20 05:22 Basophils # (Manual) 0.0 K/mm3 (0.0-0.1) 12/23/20 05:22 Metamyelocytes # 0.0 K/mm3 12/23/20 05:22 Myelocytes # 0.0 K/mm3 12/23/20 05:22 Promyelocytes # 0.0 K/mm3 12/23/20 05:22 Blast Cells # 0.0 K/mm3 12/23/20 05:22 WBC Morphology Not Reportable 12/23/20 05:22 Hypersegmented Neuts Not Reportable 12/23/20 05:22 Hyposegmented Neuts Not Reportable 12/23/20 05:22 Hypogranular Neuts Not Reportable 12/23/20 05:22 Smudge Cells Not Reportable 12/23/20 05:22 Toxic Granulation Not Reportable 12/23/20 05:22 Toxic Vacuolation Not Reportable 12/23/20 05:22 Dohle Bodies Not Reportable 12/23/20 05:22 Pelger-Huet Anomaly Not Reportable 12/23/20 05:22 Lamar Rods Not Reportable 12/23/20 05:22 Platelet Estimate Consistent w auto 12/23/20 05:22 Clumped Platelets Not Reportable 12/23/20 05:22 Plt Clumps, EDTA Not Reportable 12/23/20 05:22 Large Platelets Not Reportable 12/23/20 05:22 Giant Platelets Not Reportable 12/23/20 05:22 Platelet Satelliting Not Reportable 12/23/20 05:22 Plt Morphology Comment Not Reportable 12/23/20 05:22 RBC Morphology Not Reportable 12/23/20 05:22 Dimorphic RBCs Not Reportable 12/23/20 05:22 Polychromasia Not Reportable 12/23/20 05:22 Hypochromasia Not Reportable 12/23/20 05:22 Poikilocytosis Not Reportable 12/23/20 05:22 Anisocytosis 1+ 12/23/20 05:22 Microcytosis Not Reportable 12/23/20 05:22 Macrocytosis Not Reportable 12/23/20 05:22 Spherocytes Not Reportable 12/23/20 05:22 Pappenheimer Bodies Not Reportable 12/23/20 05:22 Sickle Cells Not Reportable 12/23/20 05:22 Target Cells Not Reportable 12/23/20 05:22 Tear Drop Cells Not Reportable 12/23/20 05:22 Ovalocytes Not Reportable 12/23/20 05:22 Helmet Cells Not Reportable 12/23/20 05:22 [place] Bodies Not Reportable 12/23/20 05:22 [place] Rings Not Reportable 12/23/20 05:22 [place] Cells Not Reportable 12/23/20 05:22 Bite Cells Not Reportable 12/23/20 05:22 Crenated Cell Not Reportable 12/23/20 05:22 Elliptocytes Not Reportable 12/23/20 05:22 Acanthocytes (Spur) Not Reportable 12/23/20 05:22 Rouleaux Not Reportable 12/23/20 05:22 Hemoglobin C Crystals Not Reportable 12/23/20 05:22 Schistocytes Not Reportable 12/23/20 05:22 Malaria parasites Not Reportable 12/23/20 05:22 Lucas Bodies Not Reportable 12/23/20 05:22 Hem Pathologist Commnt No 12/23/20 05:22 PT 13.8 Sec. (12.2-14.9) 12/22/20 14:38 INR 1.07 (0.87-1.13) 12/22/20 14:38 APTT 25.1 Sec. (24.2-36.6) 12/22/20 14:38 ABG pH 7.474 (7.320-7.450) H 12/28/20 Unknown POC ABG pCO2 32.7 mmHg (32.0-48.0) 12/28/20 Unknown ABG pCO2 52.0 mm Hg 12/27/20 03:40 POC ABG pO2 83.2 mmHg (83-108) 12/28/20 Unknown ABG pO2 81.7 mm Hg (80.0-90.0) 12/27/20 03:40 POC ABG HCO3 23.5 12/28/20 Unknown ABG HCO3 26.9 mmol/L (20.0-26.0) H 12/27/20 03:40 ABG O2 Saturation 96.8 (0-100) 12/28/20 Unknown ABG O2 Content 9.5 (0.0-44) 12/27/20 03:40 POC ABG Base Excess 0.1 12/28/20 Unknown ABG Base Excess 0.8 mmol/L (-2.0-3.0) 12/27/20 03:40 ABG Hemoglobin 7.8 (12.0-17.5) L 12/28/20 Unknown ABG Oxyhemoglobin 93.0 (94-98) L 12/25/20 03:33 ABG Carboxyhemoglobin 1.6 % (0.0-5.0) 12/27/20 03:40 ABG Methemoglobin 0.5 % (0.0-1.5) 12/27/20 03:40 ABG Sodium 133.2 mmol/L (136.0-145.0) L 12/28/20 Unknown ABG Potassium 3.7 mmol/L (3.40-4.50) 12/28/20 Unknown ABG Chloride 102.0 mmol/L (98-107) 12/28/20 Unknown ABG Glucose 139 mg/dL (65-95) H 12/28/20 Unknown Oxyhemoglobin 93.1 % (95.0-99.0) L 12/27/20 03:40 Carboxyhemoglobin 0.8 (0.5-1.5) 12/25/20 03:33 FiO2 30 % 12/27/20 03:40 FiO2 % 90 12/28/20 Unknown Sodium 140 mmol/L (137-145) 12/28/20 05:40 Potassium 3.7 mmol/L (3.6-5.0) 12/28/20 05:40 Chloride 99.9 mmol/L (98-107) 12/28/20 05:40 Carbon Dioxide 23 mmol/L (22-30) 12/28/20 05:40 Anion Gap 21 mmol/L 12/28/20 05:40 BUN 85 mg/dL (9-20) H 12/28/20 05:40 Creatinine 11.5 mg/dL (0.8-1.3) H 12/28/20 05:40 Estimated GFR 5 ml/min 12/28/20 05:40 BUN/Creatinine Ratio 7 % 12/28/20 05:40 Glucose 132 mg/dL (75-100) H 12/28/20 05:40 POC Glucose 131 mg/dL (70-105) H 12/27/20 23:31 Lactic Acid 1.40 mmol/L (0.7-2.0) 12/24/20 15:06 Calcium 8.2 mg/dL (8.4-10.2) L 12/28/20 05:40 Phosphorus 3.30 mg/dL (2.5-4.5) D 05/05/21 05:40 Magnesium 2.40 mg/dL (1.7-2.3) H 12/28/20 05:40 Total Bilirubin 3.80 mg/dL (0.1-1.2) H 12/28/20 05:40 AST 70 units/L (5-40) H 12/28/20 05:40 ALT 30 units/L (7-56) 12/28/20 05:40 Alkaline Phosphatase 176 units/L (35-129) H 12/28/20 05:40 Ammonia 30.0 umol/L (25-60) 12/22/20 14:38 Troponin T 0.021 ng/mL (0.00-0.029) 12/22/20 14:38 Total Protein 5.0 g/dL (6.3-8.2) L 12/28/20 05:40 Albumin 2.9 g/dL (3.9-5) L 12/28/20 05:40 Albumin/Globulin Ratio 1.4 % 12/28/20 05:40 Lipase 41 units/L (13-60) 12/22/20 14:38 Procalcitonin > 200.00 ng/mL (<0.15) 12/24/20 15:06 Arterial Blood Glucose 139 mg/dL (65-95) H 12/28/20 Unknown Arterial Blood Ionized Calcium 4.3 mg/dL (4.6-5.3) L 12/28/20 Unknown Urine Color Yellow (Yellow) 12/22/20 18:53 Urine Turbidity Clear (Clear) 12/22/20 18:53 Urine pH 7.0 (5.0-7.0) 12/22/20 18:53 Ur Specific [place] 1.012 (1.003-1.030) 12/22/20 18:53 Urine Protein >500 mg/dL (Negative) 12/22/20 18:53 Urine Glucose (UA) Neg mg/dL (Negative) 12/22/20 18:53 Urine Ketones Neg mg/dL (Negative) 12/22/20 18:53 Urine Blood Neg (Negative) 12/22/20 18:53 Urine Nitrite Neg (Negative) 12/22/20 18:53 Urine Bilirubin Neg (Negative) 12/22/20 18:53 Urine Urobilinogen < 2.0 mg/dL (<2.0) 12/22/20 18:53 Ur Leukocyte Esterase Neg (Negative) 12/22/20 18:53 Urine WBC (Auto) < 1.0 /HPF (0.0-6.0) 12/22/20 18:53 Urine RBC (Auto) 1.0 /HPF (0.0-6.0) 12/22/20 18:53 Fluid Type Dialysate 12/22/20 Unknown Fluid Color Colorless 12/22/20 Unknown Fluid Appearance Cloudy 12/22/20 Unknown Fluid WBC 208 /mm3 12/22/20 Unknown Fluid RBC 45 /mm3 12/22/20 Unknown Fluid Seg Neutrophils 82.0 % 12/22/20 Unknown Fluid Lymphocytes 11.0 % 12/22/20 Unknown Fluid Reactive Lymphs 0 % 12/22/20 Unknown Fluid Monocytes 7.0 % 12/22/20 Unknown Fluid Eosinophils 0 % 12/22/20 Unknown Fluid Basophils 0 % 12/22/20 Unknown Random Vancomycin 13.7 ug/mL (0-40.0) 12/26/20 Unknown Hepatitis A IgM Ab Non-reactive (NonReactive) 12/23/20 11:38 Hep Bs Antigen Non-reactive (Negative) 12/23/20 11:38 Hep B Core IgM Ab Non-reactive (NonReactive) 12/23/20 11:38 Hepatitis C Antibody Non-reactive (NonReactive) 12/23/20 11:38 Blood Type A POSITIVE 12/23/20 11:40 Antibody Screen Negative 12/23/20 11:40 Crossmatch See Detail 12/23/20 11:40 Microbiology: Microbiology 12/24/20 23:11 Peripheral/Venous Blood Culture - Preliminary NO GROWTH AFTER 72 HOURS 12/24/20 23:11 Peripheral/Venous Blood Culture - Preliminary NO GROWTH AFTER 72 HOURS 12/22/20 14:38 Peripheral/Venous Blood Culture - Preliminary Streptococcus Bovis Prevotella Oralis Group 12/22/20 14:28 Peripheral/Venous Blood Culture - Preliminary Prevotella Oralis Group 12/22/20 Unknown Peritioneal Dialysate Peritoneal Dialysate Culture - Final Jeffery/IV: Voiding Method Incontinent Active Medications - Current Medications Current Medications: Generic Name Dose Route Start Last Admin Trade Name Freq PRN Reason Stop Dose Admin Albuterol 2.5 mg 12/22/20 19:42 Albuterol 2.5 Mg/3 Ml Nebu IH Q4HRT PRN Shortness Of Breath Diphenhydramine HCl 25 mg 12/25/20 20:00 12/28/20 04:56 Diphenhydramine 50 Mg/Ml Vial IV 01/01/21 19:59 25 mg Q8H THOMAS Administration Famotidine 10 mg 12/24/20 13:00 12/28/20 09:14 Famotidine 20 Mg/2 Ml Inj IV 10 mg BID THOMAS Administration Fentanyl 50 mcg 12/24/20 11:35 Fentanyl 100 Mcg/2 Ml Inj IV Q10MIN PRN ANALGESIA Fentanyl 25 mcg 12/27/20 11:49 Fentanyl 100 Mcg/2 Ml Inj IV Q2H PRN Pain , Severe (7-10) Heparin Sodium (Porcine) 5,000 unit 12/24/20 10:00 12/28/20 09:14 Heparin 5,000 Unit/1 Ml Vial SUB-Q 5,000 unit Q12HR THOMAS Administration Hydrophilic Ointment 1 applic 12/24/20 12:03 Lip Therapy Vaseline TP Q2H PRN Dry Lips Sodium Chloride 100 mls @ 999 mls/hr 12/23/20 11:03 Nacl 0.9% IV RYLAND PRN Hypotension Propofol 1,000 mg in 100 mls @ 5.484 mls/hr 12/23/20 19:00 12/24/20 18:54 Diprivan 10 Mg/Ml IV 0 mcg/kg/min TITR THOMAS 0 mls/hr Titration Protocol 10 MCG/KG/MIN Fentanyl Citrate 2,000 mcg in 100 mls @ 4.57 mls/hr 12/24/20 12:00 12/28/20 04:00 Fentanyl Drip Premix IV 1 mcg/kg/hr TITR THOMAS 4.57 mls/hr Titration Protocol 1 MCG/KG/HR Metronidazole 500 mg in 100 mls @ 100 mls/hr 12/25/20 14:00 12/28/20 05:57 Flagyl 500 Mg/100 Ml IV 100 mls/hr Q8HR THOMAS Administration Protocol Cefepime HCl 2 gm in 100 mls @ 200 mls/hr 12/26/20 11:00 12/27/20 15:30 Cefepime/Ns 2 Gm/100 Ml IV Infused Q24H THOMAS Infusion Protocol Amino Acids/Electrolytes/Dextrose 2,016 mls @ 84 mls/hr 12/27/20 20:00 12/27/20 20:15 Tpn Adult IV 12/28/20 19:59 84 mls/hr DAILY@1999 [facility] Administration Protocol Fluconazole 200 mg in 100 mls @ 100 mls/hr 12/27/20 13:00 12/27/20 16:05 Diflucan IV Infused Q24H [facility] Infusion Protocol Amino Acids/Electrolytes/Dextrose 2,016 mls @ 84 mls/hr 12/28/20 20:00 Tpn Adult IV 12/29/20 19:59 DAILY@1999 [facility] Protocol Morphine Sulfate 2 mg 12/23/20 10:00 12/27/20 01:36 Morphine 2 Mg/1 Ml Inj IV 2 mg Q4H PRN Administration Pain, Moderate (4-6) Multi-Ingred Cream/Lotion/Oil/Oint 1 applic 12/24/20 12:03 Mineral Oil/Petrolatum, White Ophth Oint 3.5 Gm OU Q4H PRN Dry Eye(s) Ondansetron HCl 4 mg 12/22/20 19:42 Ondansetron 4 Mg/2 Ml Inj IV Q8H PRN Nausea And Vomiting Sodium Chloride 10 ml 12/22/20 22:00 12/28/20 09:15 Sodium Chloride 0.9% 10 Ml Flush Syringe IV 10 ml BID THOMAS Administration Sodium Chloride 10 ml 12/22/20 19:42 Sodium Chloride 0.9% 10 Ml Flush Syringe IV PRN PRN LINE FLUSH Nutrition/Malnutrition Assess - Dietary Evaluation Nutrition/Malnutrition Findings: Nutrition Notes Start: 12/24/20 12:36 Freq: Status: Active Protocol: Document 12/28/20 10:13 EN (Rec: 12/28/20 10:24 EN [id number]) Co-Sign 12/28/20 10:13 MK Nutrition Notes Initial or Follow up Reassessment Current Diagnosis CKD (stage V CKD),Sepsis, Hypertension,Heart Failure Other Pertinent Diagnosis bacterial peritonitis, on HD MWF/PRN, SBO, Crohns disease, Anemia Current Diet NPO Labs/Tests BUN 85 Cr 11.5 Ca 8.2 Mag 2.4 Bilirubin 3.8 Pertinent Medications Fentanyl Heparin Height 5 ft 7 in Weight 94.5 kg [place] Body Weight (kg) 67.27 BMI 32.6 Weight change and time frame Weight change noted, likely due to HD Weight Status Obese Subjective/Other Information F/u for updated labs and access. CPN day 3. Pt remains NPO. Pt had PICC line placed yesterday to use as TPN access . Per RN, pt tolerating well. Pt continues with post-op ileus Percent of energy/protein needs met: 48%/82% Burn Absent Trauma Absent Difficulty In Swallowing Skin Integrity/Comment Intact Current % PO Negligible Minimum of two criteria No physical signs of malnutrition #1 Nutrition Diagnosis Inadequate oral intake Diagnosis Progress(for reassessment Continues documentation) Is patient on ventilator? Yes Is Patient Ambulatory and/or Out of Bed No REE-([facility]-confined to bed) 9.168 Kcal/Kg value to use for calculation 21 Approximate Energy Requirements Using 1985 kcal/Kg Calculation Used for Recommendations Kcal/kg Additional Notes Protein needs: >97g (>1.2g/kg AdjBW) fluid needs: 1 mL/kcal or per MD Nutrition Intervention Change Diet Order: Continue TPN Nutrition Support: TPN at 84ml/hr regimen: This provides 1015mOsm Dextrose 10% K+ 20mEq Phos 10mEq Mag 0mEq MVI Kcal 1,000 Protein (gm) 80 Carbohydrates (gm) 200 Fat (gm) 0 Fluid (mL) 2,016 Goal #1 Meet kcal and protein needs as best as possible Anticipated Discharge Needs: unable to determine at this time Follow-Up By: 12/29/20 Additional Comments Labs in AM, BMP, Mag and Phos
--- NOTE | 2020-12-28 12:56 | Progress Note ---
Assessment and Plan Cultures: 12/22/2020 blood culture: Streptococcus bovis, Prevotella 12/22/2020 PD fluid culture: No growth 12/24/2020 tracheal aspirate culture: No growth 12/24/2020 blood culture: No growth A/P: 60-year-old male with ESRD on PD, Crohn's disease, CHF, gastroesophageal reflux disease was admitted to the hospital with complaints of abdominal pain and fever: #Severe sepsis: Secondary to small bowel obstruction/necrotic bowel with associated peritonitis. #Small bowel obstruction/necrotic bowel: with concern for PD associated peritonitis: Nephrology and general surgery following. Status post exploratory laparotomy with extensive lysis, primary anastomosis, had necrotic segment of small bowel. #Streptococcus bovis bacteremia and Prevotella bacteremia: secondary to above. #ESRD: Renally dose antibiotics. Used to be on PD, cath remains in place. Now on HD. #Elevated LFTs: Secondary to sepsis. #Acute respiratory failure: On the vent Recs: -Antibiotic streamlined to IV Unasyn -Continue fluconazole -f/u TTE Yesika Denny MD, FACP [facility] O: [phone] F: [phone] Subjective Date of service: 12/28/20 Principal diagnosis: Ac hypoxemic resp failure; Severe Sepsis; Peritonitis; Acute SBO; ESRD; CHF Interval history: Awake, remains on the vent, getting HD. Plan for possible extubation later today. Complains of abdominal discomfort. Objective - Exam Narrative Exam: Physical Exam: Constitutional: awake, intubated, on the vent Head, Ears, Nose: Normocephalic, atraumatic. External ears, nose normal Eyes: Conjunctivae/corneas clear. No icterus. No ptosis. Neck: intubated Oral: intubated Cardiovascular: S1, S2 + Respiratory: AE fair bilaterally and equal GI: Midline incision, PD catheter present bowel sounds hypoactive Musculoskeletal: No pedal edema, no cyanosis. Skin: No rash or abscess Hem/Lymphatic: No palpable cervical or supraclavicular nodes. No lymphangitis Psych: no agitation Neurological: awake, intubated, on the vent, exam limited - Constitutional Vitals: Vital Signs Temp Pulse Resp BP Pulse Ox 98.2 F 92 H 20 143/89 98 12/28/20 12:20 12/28/20 12:50 12/28/20 12:00 12/28/20 12:50 12/28/20 12:00 Temperature -Last 24 Hours Temperature 98.2 F Temperature 98.6 F Temperature 98.6 F Temperature 98.6 F Temperature 98.2 F Temperature 98.1 F Temperature 98.2 F - Labs CBC & Chem 7: 12/28/20 05:40 12/28/20 05:40 Labs: Abnormal lab results 12/27/20 12/27/20 12/28/20 Range/Units 17:29 23:31 05:37 WBC (4.5-11.0) K/mm3 RBC (3.65-5.03) M/mm3 Hgb (11.8-15.2) gm/dl Hct (35.5-45.6) % RDW (13.2-15.2) % Plt Count (140-440) K/mm3 Lymph % (Auto) (13.4-35.0) % [place] % (Auto) (0.0-7.3) % Lymph # (Auto) (1.2-5.4) K/mm3 Seg Neutrophils % (40.0-70.0) % ABG pH (7.320-7.450) ABG Hemoglobin (12.0-17.5) ABG Sodium (136.0-145.0) mmol/L ABG Glucose (65-95) mg/dL BUN (9-20) mg/dL Creatinine (0.8-1.3) mg/dL Glucose (75-100) mg/dL POC Glucose 121 H 131 H 121 H (70-105) mg/dL Calcium (8.4-10.2) mg/dL Magnesium (1.7-2.3) mg/dL Total Bilirubin (0.1-1.2) mg/dL AST (5-40) units/L Alkaline Phosphatase (35-129) units/L Total Protein (6.3-8.2) g/dL Albumin (3.9-5) g/dL Arterial Blood Glucose (65-95) mg/dL Arterial Blood Ionized Calcium (4.6-5.3) mg/dL 12/28/20 12/28/20 12/28/20 Range/Units 05:40 05:40 11:34 WBC 4.3 L (4.5-11.0) K/mm3 RBC 2.40 L (3.65-5.03) M/mm3 Hgb 7.2 L (11.8-15.2) gm/dl Hct 21.5 L (35.5-45.6) % RDW 17.4 H (13.2-15.2) % Plt Count 112 L (140-440) K/mm3 Lymph % (Auto) 6.5 L (13.4-35.0) % [place] % (Auto) 16.7 H (0.0-7.3) % Lymph # (Auto) 0.3 L (1.2-5.4) K/mm3 Seg Neutrophils % 71.1 H (40.0-70.0) % ABG pH (7.320-7.450) ABG Hemoglobin (12.0-17.5) ABG Sodium (136.0-145.0) mmol/L ABG Glucose (65-95) mg/dL BUN 85 H (9-20) mg/dL Creatinine 11.5 H (0.8-1.3) mg/dL Glucose 132 H (75-100) mg/dL POC Glucose 137 H (70-105) mg/dL Calcium 8.2 L (8.4-10.2) mg/dL Magnesium 2.40 H (1.7-2.3) mg/dL Total Bilirubin 3.80 H (0.1-1.2) mg/dL AST 70 H (5-40) units/L Alkaline Phosphatase 176 H (35-129) units/L Total Protein 5.0 L (6.3-8.2) g/dL Albumin 2.9 L (3.9-5) g/dL Arterial Blood Glucose (65-95) mg/dL Arterial Blood Ionized Calcium (4.6-5.3) mg/dL /01/13 Range/Units Unknown WBC (4.5-11.0) K/mm3 RBC (3.65-5.03) M/mm3 Hgb (11.8-15.2) gm/dl Hct (35.5-45.6) % RDW (13.2-15.2) % Plt Count (140-440) K/mm3 Lymph % (Auto) (13.4-35.0) % [place] % (Auto) (0.0-7.3) % Lymph # (Auto) (1.2-5.4) K/mm3 Seg Neutrophils % (40.0-70.0) % ABG pH 7.474 H (7.320-7.450) ABG Hemoglobin 7.8 L (12.0-17.5) ABG Sodium 133.2 L (136.0-145.0) mmol/L ABG Glucose 139 H (65-95) mg/dL BUN (9-20) mg/dL Creatinine (0.8-1.3) mg/dL Glucose (75-100) mg/dL POC Glucose (70-105) mg/dL Calcium (8.4-10.2) mg/dL Magnesium (1.7-2.3) mg/dL Total Bilirubin (0.1-1.2) mg/dL AST (5-40) units/L Alkaline Phosphatase (35-129) units/L Total Protein (6.3-8.2) g/dL Albumin (3.9-5) g/dL Arterial Blood Glucose 139 H (65-95) mg/dL Arterial Blood Ionized Calcium 4.3 L (4.6-5.3) mg/dL
[2020-12-28] MEDS ORDERED: AMPICILLIN/SULBACTA 3GM/100ML 3 GM/100 ML BAG IV SCH (13:00)
[2020-12-28] MEDS: fentaNYL DRIP Premix 2,000 MCG/100 ML BAG IV SCH (13:25)
[2020-12-28] MEDS: FLUCONAZOLE 200 MG 200 MG/100 ML BAG IV SCH (13:27)
--- NOTE | 2020-12-28 13:48 | Progress Note ---
Assessment and Plan Acute hypoxemic respiratory failure, on mechanical ventilatory support. Severe Sepsis Peritonitis Acute small-bowel obstruction with tissue necrosis. End-stage renal disease, on dialysis. Hypertension. Crohn's disease. Gastroesophageal reflux disease. Heart failure with reduced ejection fraction. Hyperkalemia. Anemia that is normocytic. Lactic acidosis. Oropharyngeal dysphagia - RIJ trialysis catheter pulled by myself at bedside - placed on SBT; will extubate if passes - Robinul 0.2 mg IV X 1 - scopolamine 1.5 mg X 1 dose - discontinued Benadryl - continue care as below otherwise; - continue Daily SAT and SBT assessment as tolerated - continue to wean supplemental oxygen for target O2 sat's > 92% acutely - VAP bundle addressed - continue lung protective strategies - continue bronchodilators with pulmonary hygiene per RT - wean per pulmonary driven protocols otherwise - HD/UF per nephrology prescription for toxin and volume control - avoid nephrotoxins, renally dose all medications - continue accuchecks with glycemic control per SSI (While critically ill target blood glucose of 140-180 mg/dL; avoid hypoglycemia) - sedation prn for target RASS 0 to -1 - continue to avoid benzodiazepine's, reduce the possibility of delirium - complete AB's per ID rec's - prn analgesia per CPOT score - Maintenance of sleep-wake cycle, avoid delirium - enteral nutritional support at goal rate as tolerated (once cleared by surgeon) - G.I. & VTE prophylaxis - PT/OT/ROM exercises - continue mobility protocols for pressure ulcer prophylaxis - Monitor hemodynamics closely - continue other care per attending / other consultants - discharge planning ongoing concurrently COVID SPECIFIC INTERVENTIONS - Remdesivir as per ID/Pulmonary developed protocols - consider systemic steroids for severe COVID-19 infection empirically - follow repeat COVID tests results - zinc and vitamin C supplementation - Monitor inflammatory markers per facility protocol - ferritin, Ddimer, CRP - therapeutic anticoagulation per system Protocol based on d-dimer and clinical considerations - Continue contact and airborne isolation .... Re-evaluate in am & prn CONDITION: CRITICAL PROGNOSIS: GUARDED CODE STATUS: FULL CODE The high probability of a clinically significant, sudden or life-threatening deterioration of the [respiratory, cardiovascular, GI & neurologic] system(s) required my full and direct attention, intervention and personal management. The aggregate critical care time was [34] minutes without overlap. Time includes spent on; [x] Data Review and interpretation [x] Patient assessment and monitoring of vital signs [x] Documentation [x] Medication orders and management Subjective Date of service: 12/28/20 Principal diagnosis: Ac hypoxemic resp failure; Severe Sepsis; Peritonitis; Acute SBO; ESRD; CHF Interval history: Patient is seen today for: Ac hypoxemic resp failure; Severe Sepsis; Peritonitis; Acute SBO; ESRD on Dialysis; HTN; Crohn's disease; HFrEF Seen and examined at bedside; 24hour events reviewed; nursing and respiratory care staff consulted; no adverse overnight events reported to me; resting in bed; remains on MVS; oral secretions moderate; s/p permacath yesterday; denies acute chest pain or SOB; wants ETT out Objective Vital Signs - 12hr 12/28/20 12/28/20 12/28/20 01:50 02:00 02:10 Temperature Pulse Rate 92 H 106 H 97 H Pulse Rate [ From Monitor] Respiratory 18 26 H 17 Rate Blood Pressure 120/78 123/81 123/81 O2 Sat by Pulse 100 100 100 Oximetry O2 Sat by Pulse Oximetry [ Anterior Bilateral Throughout] 12/28/20 12/28/20 12/28/20 02:20 02:30 02:40 Temperature Pulse Rate 87 92 H 105 H Pulse Rate [ From Monitor] Respiratory 21 22 20 Rate Blood Pressure 120/78 130/74 130/74 O2 Sat by Pulse 100 100 Oximetry O2 Sat by Pulse Oximetry [ Anterior Bilateral Throughout] 12/28/20 12/28/20 12/28/20 02:50 03:00 03:10 Temperature Pulse Rate 91 H 99 H 105 H Pulse Rate [ From Monitor] Respiratory 22 22 22 Rate Blood Pressure 130/74 128/78 128/78 O2 Sat by Pulse 100 100 100 Oximetry O2 Sat by Pulse Oximetry [ Anterior Bilateral Throughout] 12/28/20 12/28/20 12/28/20 03:20 03:30 03:40 Temperature Pulse Rate 103 H 95 H 86 Pulse Rate [ From Monitor] Respiratory 22 19 18 Rate Blood Pressure 128/78 124/79 124/79 O2 Sat by Pulse 100 100 100 Oximetry O2 Sat by Pulse Oximetry [ Anterior Bilateral Throughout] 12/28/20 12/28/20 12/28/20 03:49 03:50 04:00 Temperature 98.6 F Pulse Rate 86 92 H Pulse Rate [ 92 H From Monitor] Respiratory 19 20 Rate Blood Pressure 124/79 122/74 O2 Sat by Pulse 100 100 Oximetry O2 Sat by Pulse Oximetry [ Anterior Bilateral Throughout] 12/28/20 12/28/20 12/28/20 04:10 04:18 04:20 Temperature Pulse Rate 99 H 89 88 Pulse Rate [ From Monitor] Respiratory 24 21 Rate Blood Pressure 122/74 122/74 122/74 O2 Sat by Pulse 100 100 100 Oximetry O2 Sat by Pulse Oximetry [ Anterior Bilateral Throughout] 12/28/20 12/28/20 12/28/20 04:30 04:40 04:50 Temperature Pulse Rate 103 H 104 H 90 Pulse Rate [ From Monitor] Respiratory 22 21 19 Rate Blood Pressure 120/75 120/75 120/75 O2 Sat by Pulse 100 100 100 Oximetry O2 Sat by Pulse Oximetry [ Anterior Bilateral Throughout] 12/28/20 12/28/20 12/28/20 05:00 05:10 05:20 Temperature Pulse Rate 97 H 108 H 86 Pulse Rate [ From Monitor] Respiratory 20 20 21 Rate Blood Pressure 128/73 128/73 120/75 O2 Sat by Pulse 100 100 100 Oximetry O2 Sat by Pulse Oximetry [ Anterior Bilateral Throughout] 12/28/20 12/28/20 12/28/20 05:30 05:40 05:50 Temperature Pulse Rate 104 H 91 H 117 H Pulse Rate [ From Monitor] Respiratory 18 17 12 Rate Blood Pressure 123/75 123/75 123/75 O2 Sat by Pulse 100 100 100 Oximetry O2 Sat by Pulse Oximetry [ Anterior Bilateral Throughout] 12/28/20 12/28/20 12/28/20 06:00 06:10 06:20 Temperature Pulse Rate 86 113 H 100 H Pulse Rate [ From Monitor] Respiratory 15 14 13 Rate Blood Pressure 126/73 126/73 123/75 O2 Sat by Pulse 100 100 100 Oximetry O2 Sat by Pulse Oximetry [ Anterior Bilateral Throughout] 12/28/20 12/28/20 12/28/20 06:30 06:40 06:50 Temperature Pulse Rate 97 H 96 H 103 H Pulse Rate [ From Monitor] Respiratory 14 16 14 Rate Blood Pressure 121/77 121/77 121/77 O2 Sat by Pulse 100 100 100 Oximetry O2 Sat by Pulse Oximetry [ Anterior Bilateral Throughout] 12/28/20 12/28/20 12/28/20 07:00 07:10 07:20 Temperature Pulse Rate 100 H 124 H 103 H Pulse Rate [ From Monitor] Respiratory 15 22 14 Rate Blood Pressure 123/82 123/82 123/82 O2 Sat by Pulse 100 100 100 Oximetry O2 Sat by Pulse Oximetry [ Anterior Bilateral Throughout] 12/28/20 12/28/20 12/28/20 07:30 07:40 07:42 Temperature Pulse Rate 101 H 111 H 111 H Pulse Rate [ From Monitor] Respiratory 14 14 Rate Blood Pressure 119/77 119/77 119/77 O2 Sat by Pulse 100 100 100 Oximetry O2 Sat by Pulse Oximetry [ Anterior Bilateral Throughout] 12/28/20 12/28/20 12/28/20 07:50 08:00 08:06 Temperature 98.6 F Pulse Rate 109 H 107 H Pulse Rate [ 100 H From Monitor] Respiratory 17 17 Rate Blood Pressure 119/77 119/77 O2 Sat by Pulse 100 100 Oximetry O2 Sat by Pulse Oximetry [ Anterior Bilateral Throughout] 12/28/20 12/28/20 12/28/20 08:10 08:20 08:30 Temperature Pulse Rate 97 H 106 H 93 H Pulse Rate [ From Monitor] Respiratory 15 17 12 Rate Blood Pressure 119/77 119/77 128/73 O2 Sat by Pulse 100 100 100 Oximetry O2 Sat by Pulse Oximetry [ Anterior Bilateral Throughout] 12/28/20 12/28/20 12/28/20 08:40 08:50 09:00 Temperature 98.6 F Pulse Rate 100 H 100 H 105 H Pulse Rate [ From Monitor] Respiratory 9 L 10 L 20 Rate Blood Pressure 128/73 128/73 127/77 O2 Sat by Pulse 100 100 100 Oximetry O2 Sat by Pulse 100 Oximetry [ Anterior Bilateral Throughout] 12/28/20 12/28/20 12/28/20 09:10 09:20 09:30 Temperature Pulse Rate 104 H 104 H 101 H Pulse Rate [ From Monitor] Respiratory 22 21 20 Rate Blood Pressure 127/77 140/80 125/82 O2 Sat by Pulse 100 100 100 Oximetry O2 Sat by Pulse Oximetry [ Anterior Bilateral Throughout] 12/28/20 12/28/20 12/28/20 09:40 09:45 09:50 Temperature Pulse Rate 101 H 93 H 100 H Pulse Rate [ From Monitor] Respiratory 18 18 Rate Blood Pressure 125/82 131/84 131/84 O2 Sat by Pulse 100 100 Oximetry O2 Sat by Pulse Oximetry [ Anterior Bilateral Throughout] 12/28/20 12/28/20 12/28/20 10:00 10:05 10:10 Temperature Pulse Rate 118 H 96 H 99 H Pulse Rate [ From Monitor] Respiratory 21 13 Rate Blood Pressure 140/82 140/82 140/82 O2 Sat by Pulse 100 100 Oximetry O2 Sat by Pulse Oximetry [ Anterior Bilateral Throughout] 12/28/20 12/28/20 12/28/20 10:15 10:20 10:30 Temperature Pulse Rate 102 H 99 H 107 H Pulse Rate [ From Monitor] Respiratory 11 L 14 Rate Blood Pressure 132/87 132/87 130/83 O2 Sat by Pulse 100 100 Oximetry O2 Sat by Pulse Oximetry [ Anterior Bilateral Throughout] 12/28/20 12/28/20 12/28/20 10:40 10:45 10:50 Temperature Pulse Rate 94 H 85 102 H Pulse Rate [ From Monitor] Respiratory 9 L 14 Rate Blood Pressure 130/83 125/82 125/82 O2 Sat by Pulse 100 100 Oximetry O2 Sat by Pulse Oximetry [ Anterior Bilateral Throughout] 12/28/20 12/28/20 12/28/20 11:00 11:10 11:15 Temperature Pulse Rate 114 H 118 H 90 Pulse Rate [ From Monitor] Respiratory 13 13 Rate Blood Pressure 128/82 128/82 135/91 O2 Sat by Pulse 100 100 Oximetry O2 Sat by Pulse Oximetry [ Anterior Bilateral Throughout] 12/28/20 12/28/20 12/28/20 11:20 11:30 11:40 Temperature Pulse Rate 98 H 84 88 Pulse Rate [ From Monitor] Respiratory 13 12 19 Rate Blood Pressure 135/91 138/86 138/86 O2 Sat by Pulse 100 100 100 Oximetry O2 Sat by Pulse Oximetry [ Anterior Bilateral Throughout] 12/28/20 12/28/20 12/28/20 11:45 11:50 12:00 Temperature Pulse Rate 86 106 H 117 H Pulse Rate [ 95 H From Monitor] Respiratory 10 L 25 H Rate Blood Pressure 146/94 146/94 138/92 O2 Sat by Pulse 100 100 Oximetry O2 Sat by Pulse Oximetry [ Anterior Bilateral Throughout] 12/28/20 12/28/20 12/28/20 12:15 12:20 12:30 Temperature 98.2 F Pulse Rate 95 H 86 Pulse Rate [ From Monitor] Respiratory Rate Blood Pressure 135/81 136/87 O2 Sat by Pulse Oximetry O2 Sat by Pulse Oximetry [ Anterior Bilateral Throughout] 12/28/20 12:50 Temperature Pulse Rate 92 H Pulse Rate [ From Monitor] Respiratory Rate Blood Pressure 143/89 O2 Sat by Pulse Oximetry O2 Sat by Pulse Oximetry [ Anterior Bilateral Throughout] Constitutional: no acute distress, other (elderly male with mildly increased respiratory effort at rest on MVS) Eyes: non-icteric ENT: oropharynx moist, oropharyngeal exudate pre (clear), other (ETT 24 cm LEEANN) Neck: supple, no lymphadenopathy, no JVD Effort: mildly labored Ascultation: Bilateral: diminished breath sounds, rhonchi (scant) Percussion: Bilateral: not dull Cardiovascular: regular rate and rhythm Gastrointestinal: hypoactive bowel sounds, soft, tender (mild), non-distended (protuberant) Integumentary: other (popst surgical changes) Extremities: no cyanosis, no edema, pulses normal, no ischemia or petechiae Neurologic: non-focal exam (grossly), pupils equal and round, CN II-XII normal Psychiatric: mood appropriate, affect normal CBC and BMP: 12/28/20 05:40 12/28/20 05:40 ABG, PT/INR, D-dimer: ABG ABG pH 7.474 (7.320-7.450) H 12/28/20 Unknown POC ABG pCO2 32.7 mmHg (32.0-48.0) 12/28/20 Unknown ABG pCO2 52.0 mm Hg 12/27/20 03:40 POC ABG pO2 83.2 mmHg (83-108) 12/28/20 Unknown ABG pO2 81.7 mm Hg (80.0-90.0) 12/27/20 03:40 POC ABG HCO3 23.5 12/28/20 Unknown ABG O2 Saturation 96.8 (0-100) 12/28/20 Unknown PT/INR, D-dimer PT 13.8 Sec. (12.2-14.9) 12/22/20 14:38 INR 1.07 (0.87-1.13) 12/22/20 14:38 Abnormal lab findings: Abnormal Labs 12/22/20 12/22/20 12/22/20 14:38 14:38 14:38 WBC RBC Hgb 11.2 L Hct 35.0 L RDW 16.7 H Plt Count Lymph % (Auto) [place] % (Auto) Lymph # (Auto) Seg Neutrophils % Seg Neuts % (Manual) 94.0 H Lymphocytes % (Manual) 5.0 L Seg Neutrophils # Man Lymphocytes # (Manual) 0.3 L ABG pH POC ABG pCO2 POC ABG pO2 ABG pO2 ABG HCO3 ABG O2 Saturation ABG Base Excess ABG Hemoglobin ABG Oxyhemoglobin ABG Sodium ABG Potassium ABG Chloride ABG Glucose Oxyhemoglobin Sodium Potassium Carbon Dioxide BUN 58 H Creatinine 13.2 H Glucose 113 H POC Glucose Lactic Acid 3.60 H* Calcium Phosphorus Magnesium Total Bilirubin 1.30 H AST ALT Alkaline Phosphatase 155 H Total Protein Albumin Arterial Blood Glucose Arterial Blood Ionized Calcium Crossmatch 12/22/20 12/22/20 12/23/20 16:26 17:47 05:22 WBC RBC Hgb Hct RDW Plt Count Lymph % (Auto) [place] % (Auto) Lymph # (Auto) Seg Neutrophils % Seg Neuts % (Manual) Lymphocytes % (Manual) Seg Neutrophils # Man Lymphocytes # (Manual) ABG pH POC ABG pCO2 POC ABG pO2 ABG pO2 ABG HCO3 ABG O2 Saturation ABG Base Excess ABG Hemoglobin ABG Oxyhemoglobin ABG Sodium ABG Potassium ABG Chloride ABG Glucose Oxyhemoglobin Sodium Potassium Carbon Dioxide BUN Creatinine Glucose POC Glucose Lactic Acid 2.80 H* 3.10 H* 2.30 H* Calcium Phosphorus Magnesium Total Bilirubin AST ALT Alkaline Phosphatase Total Protein Albumin Arterial Blood Glucose Arterial Blood Ionized Calcium Crossmatch 12/23/20 12/23/20 12/23/20 05:22 05:22 06:35 WBC 12.1 H RBC Hgb 11.0 L Hct 33.7 L RDW 16.9 H Plt Count Lymph % (Auto) [place] % (Auto) Lymph # (Auto) Seg Neutrophils % Seg Neuts % (Manual) 93.0 H Lymphocytes % (Manual) 1.0 L Seg Neutrophils # Man 11.3 H Lymphocytes # (Manual) 0.1 L ABG pH POC ABG pCO2 POC ABG pO2 ABG pO2 ABG HCO3 ABG O2 Saturation ABG Base Excess ABG Hemoglobin ABG Oxyhemoglobin ABG Sodium ABG Potassium ABG Chloride ABG Glucose Oxyhemoglobin Sodium Potassium 5.7 H D Carbon Dioxide BUN 73 H Creatinine 14.2 H Glucose POC Glucose Lactic Acid 2.30 H* Calcium 7.9 L Phosphorus Magnesium Total Bilirubin 1.40 H AST 119 H ALT 130 H Alkaline Phosphatase 183 H Total Protein 6.1 L Albumin 3.6 L Arterial Blood Glucose Arterial Blood Ionized Calcium Crossmatch 12/23/20 12/23/20 12/23/20 11:40 13:53 16:47 WBC RBC Hgb 10.0 L Hct 30.4 L RDW Plt Count Lymph % (Auto) [place] % (Auto) Lymph # (Auto) Seg Neutrophils % Seg Neuts % (Manual) Lymphocytes % (Manual) Seg Neutrophils # Man Lymphocytes # (Manual) ABG pH POC ABG pCO2 POC ABG pO2 137.5 H ABG pO2 ABG HCO3 ABG O2 Saturation ABG Base Excess ABG Hemoglobin 9.7 L ABG Oxyhemoglobin ABG Sodium 134.1 L ABG Potassium 6.6 H ABG Chloride ABG Glucose 103 H Oxyhemoglobin Sodium Potassium Carbon Dioxide BUN Creatinine Glucose POC Glucose Lactic Acid Calcium Phosphorus Magnesium Total Bilirubin AST ALT Alkaline Phosphatase Total Protein Albumin Arterial Blood Glucose 103 H Arterial Blood Ionized Calcium 3.8 L Crossmatch See Detail 12/23/20 12/23/20 12/24/20 20:35 20:40 01:20 WBC RBC Hgb Hct RDW Plt Count Lymph % (Auto) [place] % (Auto) Lymph # (Auto) Seg Neutrophils % Seg Neuts % (Manual) Lymphocytes % (Manual) Seg Neutrophils # Man Lymphocytes # (Manual) ABG pH 7.252 L POC ABG pCO2 POC ABG pO2 ABG pO2 50.1 L ABG HCO3 ABG O2 Saturation 81.1 L ABG Base Excess -5.9 L ABG Hemoglobin 12.1 L ABG Oxyhemoglobin ABG Sodium ABG Potassium ABG Chloride ABG Glucose Oxyhemoglobin 78.6 L Sodium 134 L Potassium 6.9 H* D 6.3 H* Carbon Dioxide 18 L 20 L BUN 87 H 91 H Creatinine 15.3 H 15.3 H Glucose 103 H POC Glucose Lactic Acid Calcium 6.9 L 7.5 L Phosphorus Magnesium Total Bilirubin AST ALT Alkaline Phosphatase Total Protein Albumin Arterial Blood Glucose Arterial Blood Ionized Calcium Crossmatch 12/24/20 12/24/20 12/24/20 04:00 10:29 10:29 WBC RBC 3.49 L Hgb 10.5 L Hct 31.2 L RDW 17.5 H Plt Count 124 L Lymph % (Auto) 3.7 L [place] % (Auto) 9.8 H Lymph # (Auto) 0.2 L Seg Neutrophils % 85.9 H Seg Neuts % (Manual) Lymphocytes % (Manual) Seg Neutrophils # Man Lymphocytes # (Manual) ABG pH POC ABG pCO2 28.1 L POC ABG pO2 ABG pO2 ABG HCO3 ABG O2 Saturation ABG Base Excess ABG Hemoglobin ABG Oxyhemoglobin ABG Sodium 133.9 L ABG Potassium 5.3 H ABG Chloride 108.0 H ABG Glucose Oxyhemoglobin Sodium Potassium 5.6 H Carbon Dioxide 19 L BUN 99 H Creatinine 16.9 H Glucose 52 L POC Glucose Lactic Acid Calcium 7.6 L Phosphorus Magnesium Total Bilirubin 3.50 H AST 67 H ALT 71 H Alkaline Phosphatase Total Protein 3.5 L D Albumin 2.1 L Arterial Blood Glucose Arterial Blood Ionized Calcium 4.0 L Crossmatch 12/25/20 12/25/20 12/25/20 03:33 04:00 04:00 WBC 3.8 L RBC 2.90 L Hgb 8.6 L Hct 25.7 L RDW 16.7 H Plt Count 113 L Lymph % (Auto) [place] % (Auto) Lymph # (Auto) Seg Neutrophils % Seg Neuts % (Manual) Lymphocytes % (Manual) Seg Neutrophils # Man Lymphocytes # (Manual) ABG pH 7.544 H POC ABG pCO2 28.2 L POC ABG pO2 62.8 L ABG pO2 ABG HCO3 ABG O2 Saturation ABG Base Excess ABG Hemoglobin 9.3 L ABG Oxyhemoglobin 93.0 L ABG Sodium 130.3 L ABG Potassium ABG Chloride ABG Glucose 97 H Oxyhemoglobin Sodium Potassium Carbon Dioxide BUN 62 H Creatinine 11.4 H Glucose POC Glucose Lactic Acid Calcium 7.7 L Phosphorus 5.00 H Magnesium Total Bilirubin AST ALT Alkaline Phosphatase Total Protein Albumin Arterial Blood Glucose 97 H Arterial Blood Ionized Calcium 3.9 L Crossmatch 12/26/20 12/26/20 12/27/20 04:46 Unknown 03:40 WBC 4.1 L RBC 2.61 L Hgb 7.8 L Hct 23.4 L RDW 17.1 H Plt Count 119 L Lymph % (Auto) 5.3 L [place] % (Auto) 10.6 H Lymph # (Auto) 0.2 L Seg Neutrophils % 78.8 H Seg Neuts % (Manual) Lymphocytes % (Manual) Seg Neutrophils # Man Lymphocytes # (Manual) ABG pH 7.333 L 7.332 L POC ABG pCO2 POC ABG pO2 ABG pO2 ABG HCO3 26.9 H ABG O2 Saturation ABG Base Excess -2.4 L ABG Hemoglobin 6.8 L 7.2 L ABG Oxyhemoglobin ABG Sodium ABG Potassium ABG Chloride ABG Glucose Oxyhemoglobin 93.0 L 93.1 L Sodium Potassium Carbon Dioxide BUN Creatinine Glucose POC Glucose Lactic Acid Calcium Phosphorus Magnesium Total Bilirubin AST ALT Alkaline Phosphatase Total Protein Albumin Arterial Blood Glucose Arterial Blood Ionized Calcium Crossmatch 12/27/20 12/27/20 12/27/20 06:40 06:40 11:22 WBC 4.4 L RBC 2.49 L Hgb 7.4 L Hct 22.4 L RDW 17.1 H Plt Count 111 L Lymph % (Auto) 6.7 L [place] % (Auto) 12.6 H Lymph # (Auto) 0.3 L Seg Neutrophils % 77.6 H Seg Neuts % (Manual) Lymphocytes % (Manual) Seg Neutrophils # Man Lymphocytes # (Manual) ABG pH POC ABG pCO2 POC ABG pO2 ABG pO2 ABG HCO3 ABG O2 Saturation ABG Base Excess ABG Hemoglobin ABG Oxyhemoglobin ABG Sodium ABG Potassium ABG Chloride ABG Glucose Oxyhemoglobin Sodium Potassium Carbon Dioxide BUN 64 H Creatinine 9.8 H Glucose 147 H POC Glucose 134 H Lactic Acid Calcium 8.3 L Phosphorus 5.00 H Magnesium Total Bilirubin 3.70 H AST 72 H ALT Alkaline Phosphatase 142 H Total Protein 5.1 L D Albumin 2.9 L Arterial Blood Glucose Arterial Blood Ionized Calcium Crossmatch 12/27/20 12/27/20 12/28/20 17:29 23:31 05:37 WBC RBC Hgb Hct RDW Plt Count Lymph % (Auto) [place] % (Auto) Lymph # (Auto) Seg Neutrophils % Seg Neuts % (Manual) Lymphocytes % (Manual) Seg Neutrophils # Man Lymphocytes # (Manual) ABG pH POC ABG pCO2 POC ABG pO2 ABG pO2 ABG HCO3 ABG O2 Saturation ABG Base Excess ABG Hemoglobin ABG Oxyhemoglobin ABG Sodium ABG Potassium ABG Chloride ABG Glucose Oxyhemoglobin Sodium Potassium Carbon Dioxide BUN Creatinine Glucose POC Glucose 121 H 131 H 121 H Lactic Acid Calcium Phosphorus Magnesium Total Bilirubin AST ALT Alkaline Phosphatase Total Protein Albumin Arterial Blood Glucose Arterial Blood Ionized Calcium Crossmatch 12/28/20 12/28/20 12/28/20 05:40 05:40 11:34 WBC 4.3 L RBC 2.40 L Hgb 7.2 L Hct 21.5 L RDW 17.4 H Plt Count 112 L Lymph % (Auto) 6.5 L [place] % (Auto) 16.7 H Lymph # (Auto) 0.3 L Seg Neutrophils % 71.1 H Seg Neuts % (Manual) Lymphocytes % (Manual) Seg Neutrophils # Man Lymphocytes # (Manual) ABG pH POC ABG pCO2 POC ABG pO2 ABG pO2 ABG HCO3 ABG O2 Saturation ABG Base Excess ABG Hemoglobin ABG Oxyhemoglobin ABG Sodium ABG Potassium ABG Chloride ABG Glucose Oxyhemoglobin Sodium Potassium Carbon Dioxide BUN 85 H Creatinine 11.5 H Glucose 132 H POC Glucose 137 H Lactic Acid Calcium 8.2 L Phosphorus Magnesium 2.40 H Total Bilirubin 3.80 H AST 70 H ALT Alkaline Phosphatase 176 H Total Protein 5.0 L Albumin 2.9 L Arterial Blood Glucose Arterial Blood Ionized Calcium Crossmatch 12/28/20 Unknown WBC RBC Hgb Hct RDW Plt Count Lymph % (Auto) [place] % (Auto) Lymph # (Auto) Seg Neutrophils % Seg Neuts % (Manual) Lymphocytes % (Manual) Seg Neutrophils # Man Lymphocytes # (Manual) ABG pH 7.474 H POC ABG pCO2 POC ABG pO2 ABG pO2 ABG HCO3 ABG O2 Saturation ABG Base Excess ABG Hemoglobin 7.8 L ABG Oxyhemoglobin ABG Sodium 133.2 L ABG Potassium ABG Chloride ABG Glucose 139 H Oxyhemoglobin Sodium Potassium Carbon Dioxide BUN Creatinine Glucose POC Glucose Lactic Acid Calcium Phosphorus Magnesium Total Bilirubin AST ALT Alkaline Phosphatase Total Protein Albumin Arterial Blood Glucose 139 H Arterial Blood Ionized Calcium 4.3 L Crossmatch Chest x-ray: other (none today) Allied health notes reviewed: nursing
--- NOTE | 2020-12-28 14:10 | Procedure Note ---
Date of procedure: 12/24/20 Pre-op diagnosis: TROY needing Dialysis Post-op diagnosis: same Procedure: LATE ENTRY NOTE FOR DOS 12/24/2020 RIJ VAS-CATH PLACEMENT (Full dictation # [id number]) Please see dictated note for full details
[2020-12-28] MEDS: fentaNYL 100 MCG/2 ML INJ IV PRN (14:44)
[2020-12-28] MEDS: AMPICILLIN/SULBACTA 1.5GM/50ML 1.5 GM/50 ML BAG IV SCH ×2 (14:47→21:38)
--- NOTE | 2020-12-28 14:59 | Operative Report ---
DATE OF SURGERY: 12/24/2020 PROCEDURE: Right IJ vascular catheter placement of Trialysis catheter. INDICATION: Acute kidney injury in a patient needing dialysis. Consent was informed, witnessed, obtained from the patient's daughter, Cristopher Simeon. COMPLICATIONS: No immediate procedural complications. DESCRIPTION OF PROCEDURE: After informed and witnessed consent, the patient being sedated on the mechanical ventilator. The right IJ was initially evaluated with the ultrasound machine. He did have easily compressible larger vein. The area of the right upper anterior triangle of the neck as well as the right upper chest wall was placed in case of need to convert to a subclavian procedure. Full sterile technique was used including sterile hat, gown, glove, mask, full barrier protection. Generous local anesthetic agent was used. The patient has also been on a fentanyl drip. Ultrasound machine was used to aid in localization of the vein. The right internal jugular vein was entered with a provided central venous catheter and large-bore needle. Good venous looking blood return was obtained. Wire was threaded through the needle without significant resistance. A catheter was advanced over the wire after dilatation with dilators provided. The patient tolerated the procedure well. Blood loss was minimal. Post-procedure chest x-ray confirmed the absence of pneumothorax as well as the tip of the catheter in the distal SVC/right atrial junction. TID: [id number] RECEIPT: [id number] RACIEL/BROWN
[2020-12-28] MEDS ORDERED: GLYCOPYRROLATE 0.4 MG/2 ML INJ IV ONE (15:18)
--- NOTE | 2020-12-28 15:31 | Progress Note ---
Assessment and Plan 60 yo M s/p ex lap with extensive lysis of adhesions and two small bowel resections with primary anastamosis, POD 5 1. SBO with necrotic segment small bowel, peritonitis 2. ESRD 3. PD catheter Pt afebrile overnight, remains on mechanical ventilation. Pt will have prolonged ileus Plan: 1. NPO, NGT to LIWS 2. DVT ppx 3. continue abx per ID 4. vent weaning per ICU team 5. pain control - on fent gtt and prn morphine 6. continue TPN 7 HD per nephro 8. daily labs 9. Stress ulcer PPX Discussed with patient's family member in room and daughter over telephone. All questions answered. Prognosis: Guarded Continue ICU care Thank you, please call with questions. Subjective Date of service: 12/28/20 Narrative: Pt seen and examined. Awake and alert on vent. No overnight events noted. c/o some mid to right sided abdominal pain. NO BM or flatus. No fevers. Objective Vital Signs - 12hr 12/28/20 12/28/20 12/28/20 03:30 03:40 03:49 Temperature 98.6 F Pulse Rate 95 H 86 Pulse Rate [ From Monitor] Respiratory 19 18 Rate Blood Pressure 124/79 124/79 O2 Sat by Pulse 100 100 Oximetry O2 Sat by Pulse Oximetry [ Anterior Bilateral Throughout] 12/28/20 12/28/20 12/28/20 03:50 04:00 04:10 Temperature Pulse Rate 86 92 H 99 H Pulse Rate [ 92 H From Monitor] Respiratory 19 20 24 Rate Blood Pressure 124/79 122/74 122/74 O2 Sat by Pulse 100 100 100 Oximetry O2 Sat by Pulse Oximetry [ Anterior Bilateral Throughout] 12/28/20 12/28/20 12/28/20 04:18 04:20 04:30 Temperature Pulse Rate 89 88 103 H Pulse Rate [ From Monitor] Respiratory 21 22 Rate Blood Pressure 122/74 122/74 120/75 O2 Sat by Pulse 100 100 100 Oximetry O2 Sat by Pulse Oximetry [ Anterior Bilateral Throughout] 12/28/20 12/28/20 12/28/20 04:40 04:50 05:00 Temperature Pulse Rate 104 H 90 97 H Pulse Rate [ From Monitor] Respiratory 21 19 20 Rate Blood Pressure 120/75 120/75 128/73 O2 Sat by Pulse 100 100 100 Oximetry O2 Sat by Pulse Oximetry [ Anterior Bilateral Throughout] 12/28/20 12/28/20 12/28/20 05:10 05:20 05:30 Temperature Pulse Rate 108 H 86 104 H Pulse Rate [ From Monitor] Respiratory 20 21 18 Rate Blood Pressure 128/73 120/75 123/75 O2 Sat by Pulse 100 100 100 Oximetry O2 Sat by Pulse Oximetry [ Anterior Bilateral Throughout] 12/28/20 12/28/20 12/28/20 05:40 05:50 06:00 Temperature Pulse Rate 91 H 117 H 86 Pulse Rate [ From Monitor] Respiratory 17 12 15 Rate Blood Pressure 123/75 123/75 126/73 O2 Sat by Pulse 100 100 100 Oximetry O2 Sat by Pulse Oximetry [ Anterior Bilateral Throughout] 12/28/20 12/28/20 12/28/20 06:10 06:20 06:30 Temperature Pulse Rate 113 H 100 H 97 H Pulse Rate [ From Monitor] Respiratory 14 13 14 Rate Blood Pressure 126/73 123/75 121/77 O2 Sat by Pulse 100 100 100 Oximetry O2 Sat by Pulse Oximetry [ Anterior Bilateral Throughout] 12/28/20 12/28/20 12/28/20 06:40 06:50 07:00 Temperature Pulse Rate 96 H 103 H 100 H Pulse Rate [ From Monitor] Respiratory 16 14 15 Rate Blood Pressure 121/77 121/77 123/82 O2 Sat by Pulse 100 100 100 Oximetry O2 Sat by Pulse Oximetry [ Anterior Bilateral Throughout] 12/28/20 12/28/20 12/28/20 07:10 07:20 07:30 Temperature Pulse Rate 124 H 103 H 101 H Pulse Rate [ From Monitor] Respiratory 22 14 14 Rate Blood Pressure 123/82 123/82 119/77 O2 Sat by Pulse 100 100 100 Oximetry O2 Sat by Pulse Oximetry [ Anterior Bilateral Throughout] 12/28/20 12/28/20 12/28/20 07:40 07:42 07:50 Temperature Pulse Rate 111 H 111 H 109 H Pulse Rate [ From Monitor] Respiratory 14 17 Rate Blood Pressure 119/77 119/77 119/77 O2 Sat by Pulse 100 100 100 Oximetry O2 Sat by Pulse Oximetry [ Anterior Bilateral Throughout] 12/28/20 12/28/20 12/28/20 08:00 08:06 08:10 Temperature 98.6 F Pulse Rate 107 H 97 H Pulse Rate [ 100 H From Monitor] Respiratory 17 15 Rate Blood Pressure 119/77 119/77 O2 Sat by Pulse 100 100 Oximetry O2 Sat by Pulse Oximetry [ Anterior Bilateral Throughout] 12/28/20 12/28/20 12/28/20 08:20 08:30 08:40 Temperature Pulse Rate 106 H 93 H 100 H Pulse Rate [ From Monitor] Respiratory 17 12 9 L Rate Blood Pressure 119/77 128/73 128/73 O2 Sat by Pulse 100 100 100 Oximetry O2 Sat by Pulse Oximetry [ Anterior Bilateral Throughout] 12/28/20 12/28/20 12/28/20 08:50 09:00 09:10 Temperature 98.6 F Pulse Rate 100 H 105 H 104 H Pulse Rate [ From Monitor] Respiratory 10 L 20 22 Rate Blood Pressure 128/73 127/77 127/77 O2 Sat by Pulse 100 100 100 Oximetry O2 Sat by Pulse 100 Oximetry [ Anterior Bilateral Throughout] 12/28/20 12/28/20 12/28/20 09:20 09:30 09:40 Temperature Pulse Rate 104 H 101 H 101 H Pulse Rate [ From Monitor] Respiratory 21 20 18 Rate Blood Pressure 140/80 125/82 125/82 O2 Sat by Pulse 100 100 100 Oximetry O2 Sat by Pulse Oximetry [ Anterior Bilateral Throughout] 12/28/20 12/28/20 12/28/20 09:45 09:50 10:00 Temperature Pulse Rate 93 H 100 H 118 H Pulse Rate [ From Monitor] Respiratory 18 21 Rate Blood Pressure 131/84 131/84 140/82 O2 Sat by Pulse 100 100 Oximetry O2 Sat by Pulse Oximetry [ Anterior Bilateral Throughout] 12/28/20 12/28/20 12/28/20 10:05 10:10 10:15 Temperature Pulse Rate 96 H 99 H 102 H Pulse Rate [ From Monitor] Respiratory 13 Rate Blood Pressure 140/82 140/82 132/87 O2 Sat by Pulse 100 Oximetry O2 Sat by Pulse Oximetry [ Anterior Bilateral Throughout] 12/28/20 12/28/20 12/28/20 10:20 10:30 10:40 Temperature Pulse Rate 99 H 107 H 94 H Pulse Rate [ From Monitor] Respiratory 11 L 14 9 L Rate Blood Pressure 132/87 130/83 130/83 O2 Sat by Pulse 100 100 100 Oximetry O2 Sat by Pulse Oximetry [ Anterior Bilateral Throughout] 12/28/20 12/28/20 12/28/20 10:45 10:50 11:00 Temperature Pulse Rate 85 102 H 114 H Pulse Rate [ From Monitor] Respiratory 14 13 Rate Blood Pressure 125/82 125/82 128/82 O2 Sat by Pulse 100 100 Oximetry O2 Sat by Pulse Oximetry [ Anterior Bilateral Throughout] 12/28/20 12/28/20 12/28/20 11:10 11:15 11:20 Temperature Pulse Rate 118 H 90 98 H Pulse Rate [ From Monitor] Respiratory 13 13 Rate Blood Pressure 128/82 135/91 135/91 O2 Sat by Pulse 100 100 Oximetry O2 Sat by Pulse Oximetry [ Anterior Bilateral Throughout] 12/28/20 12/28/20 12/28/20 11:30 11:40 11:45 Temperature Pulse Rate 84 88 86 Pulse Rate [ From Monitor] Respiratory 12 19 Rate Blood Pressure 138/86 138/86 146/94 O2 Sat by Pulse 100 100 Oximetry O2 Sat by Pulse Oximetry [ Anterior Bilateral Throughout] 12/28/20 12/28/20 12/28/20 11:50 12:00 12:15 Temperature Pulse Rate 106 H 117 H 95 H Pulse Rate [ 95 H From Monitor] Respiratory 10 L 25 H Rate Blood Pressure 146/94 138/92 135/81 O2 Sat by Pulse 100 100 Oximetry O2 Sat by Pulse Oximetry [ Anterior Bilateral Throughout] 12/28/20 12/28/20 12/28/20 12:20 12:30 12:50 Temperature 98.2 F Pulse Rate 86 92 H Pulse Rate [ From Monitor] Respiratory Rate Blood Pressure 136/87 143/89 O2 Sat by Pulse Oximetry O2 Sat by Pulse Oximetry [ Anterior Bilateral Throughout] 12/28/20 15:13 Temperature Pulse Rate 113 H Pulse Rate [ From Monitor] Respiratory 20 Rate Blood Pressure 147/82 O2 Sat by Pulse 100 Oximetry O2 Sat by Pulse Oximetry [ Anterior Bilateral Throughout] - General physical appearance Narrative Exam: Gen: Arousable, opens eyes to name and answers yes/no questions appropriately. NAD ENT: NGT and ETT in place. Bilious output from NGT CV: s1, S2+. Tachy, low 100s Resp: on vent Abd: soft, distended, TTP near incision. Incisions c/d/i. Ext: +edema NGT output: 100cc/24 hours per documentation in [facility] - Labs 12/28/20 05:40 12/28/20 05:40 Diabetes panel 12/28/20 Range/Units 05:40 Sodium 140 (137-145) mmol/L Potassium 3.7 (3.6-5.0) mmol/L Chloride 99.9 (98-107) mmol/L Carbon Dioxide 23 (22-30) mmol/L BUN 85 H (9-20) mg/dL Creatinine 11.5 H (0.8-1.3) mg/dL Glucose 132 H (75-100) mg/dL Calcium 8.2 L (8.4-10.2) mg/dL AST 70 H (5-40) units/L ALT 30 (7-56) units/L Alkaline Phosphatase 176 H (35-129) units/L Total Protein 5.0 L (6.3-8.2) g/dL Albumin 2.9 L (3.9-5) g/dL Calcium panel 12/28/20 Range/Units 05:40 Calcium 8.2 L (8.4-10.2) mg/dL Phosphorus 3.30 D (2.5-4.5) mg/dL Albumin 2.9 L (3.9-5) g/dL Pituitary panel 12/28/20 Range/Units 05:40 Sodium 140 (137-145) mmol/L Potassium 3.7 (3.6-5.0) mmol/L Chloride 99.9 (98-107) mmol/L Carbon Dioxide 23 (22-30) mmol/L BUN 85 H (9-20) mg/dL Creatinine 11.5 H (0.8-1.3) mg/dL Glucose 132 H (75-100) mg/dL Calcium 8.2 L (8.4-10.2) mg/dL Adrenal panel 12/28/20 Range/Units 05:40 Sodium 140 (137-145) mmol/L Potassium 3.7 (3.6-5.0) mmol/L Chloride 99.9 (98-107) mmol/L Carbon Dioxide 23 (22-30) mmol/L BUN 85 H (9-20) mg/dL Creatinine 11.5 H (0.8-1.3) mg/dL Glucose 132 H (75-100) mg/dL Calcium 8.2 L (8.4-10.2) mg/dL Total Bilirubin 3.80 H (0.1-1.2) mg/dL AST 70 H (5-40) units/L ALT 30 (7-56) units/L Alkaline Phosphatase 176 H (35-129) units/L Total Protein 5.0 L (6.3-8.2) g/dL Albumin 2.9 L (3.9-5) g/dL
[2020-12-28] MEDS: SCOPOLAMINE TRANSDERMAL PATCH 72 HR TD SCH (15:41)
[2020-12-28 16:25] LABS: ABG Base Excess 0.1 mmol/L (-2.0-3.0); ABG HCO3 23.5 mmol/L (20.0-26.0); ABG Methemoglobin 0.3 % (0.0-1.5); ABG Oxygen Saturation 96.8 % (95.0-99.0); ABG PCO2 32.7 mm Hg; ABG PH 7.474 pH Units (7.350-7.450); ABG PO2 83.2 mm Hg (80.0-90.0)
[2020-12-28] MEDS ORDERED: AMIODARONE 150 MG in DEXTROSE 5% IN WATER 97 ML IV ONE (17:00)
[2020-12-28] MEDS: AMIODARONE 900 MG in DEXTROSE 5% IN WATER 482 ML IV SCH (17:03)
[2020-12-28] MEDS ORDERED: TOTAL PARENTERAL NUTRITION 2,016 ML IV SCH (20:00)
[2020-12-28 20:16] LABS: Calcium 8.3 mg/dL (8.4-10.2)
[2020-12-29] MEDS: fentaNYL 100 MCG/2 ML INJ IV PRN ×2 (05:33→21:38)
[2020-12-29] MEDS: AMPICILLIN/SULBACTA 1.5GM/50ML 1.5 GM/50 ML BAG IV SCH ×3 (05:39→21:38)
[2020-12-29 05:58] LABS: Hematocrit 22.8 % (35.5-45.6); Hemoglobin 7.7 gm/dl (11.8-15.2); Mean Corpuscular HGB Conc 34 % (32-34); Mean Corpuscular Volume 90 fl (84-94); Platelet Count 130 K/mm3 (140-440); Red Blood Count 2.53 M/mm3 (3.65-5.03)
[2020-12-29 06:28] LABS: Albumin 2.8 g/dL (3.9-5); Calcium 8.2 mg/dL (8.4-10.2)
[2020-12-29 07:01] LABS: Band Neutrophils # (Manual) 0.1 K/mm3; Total Cells Counted 100
[2020-12-29 07:02] LABS: Anisocytosis 1+; Platelet Estimate Consistent w Auto
[2020-12-29] MEDS: FAMOTIDINE 20 MG/2 ML INJ IV SCH ×2 (09:27→21:37)
[2020-12-29] MEDS: HEPARIN 5,000 UNIT/1 ML VIAL SUB-Q SCH ×2 (09:28→21:38)
--- NOTE | 2020-12-29 11:40 | Progress Note ---
Assessment and Plan Cultures: 12/22/2020 blood culture: Streptococcus bovis, Prevotella 12/22/2020 PD fluid culture: No growth 12/24/2020 tracheal aspirate culture: No growth 12/24/2020 blood culture: No growth A/P: 60-year-old male with ESRD on PD, Crohn's disease, CHF, gastroesophageal reflux disease was admitted to the hospital with complaints of abdominal pain and fever: #Severe sepsis: Secondary to small bowel obstruction/necrotic bowel with associated peritonitis. #Small bowel obstruction/necrotic bowel: with concern for PD associated peritonitis: Nephrology and general surgery following. Status post exploratory laparotomy with extensive lysis, primary anastomosis, had necrotic segment of small bowel. #Streptococcus bovis bacteremia and Prevotella bacteremia: secondary to above. #ESRD: Renally dose antibiotics. Used to be on PD, cath remains in place. Now on HD. #Elevated LFTs: Secondary to sepsis. #Acute respiratory failure: extubated. Recs: -continue renally dosed IV Unasyn, end date: 01/06/2021 -Continue fluconazole -f/u JESSIE Denny MD, FACP [facility] O: [phone] F: [phone] Subjective Date of service: 12/29/20 Principal diagnosis: Ac hypoxemic resp failure; Severe Sepsis; Peritonitis; Acute SBO; ESRD; CHF Interval history: Extubated. Remains in ICU. NG suction +. No fever. Objective - Exam Narrative Exam: Physical Exam: Constitutional: awake, no distress Head, Ears, Nose: Normocephalic, atraumatic. External ears, nose normal Eyes: Conjunctivae/corneas clear. No icterus. No ptosis. Neck: supple, no meningeal signs Oral: ventimask + Cardiovascular: S1, S2 + Respiratory: AE fair bilaterally and equal GI: Midline incision, PD catheter present bowel sounds hypoactive Musculoskeletal: No pedal edema, no cyanosis. Skin: No rash or abscess Hem/Lymphatic: No palpable cervical or supraclavicular nodes. No lymphangitis Psych: calm, not agitated Neurological: awake, alert, grossly non-focal - Constitutional Vitals: Vital Signs Temp Pulse Resp BP Pulse Ox 98.6 F 104 H 31 H 149/83 86 12/29/20 08:00 12/29/20 11:01 12/29/20 11:01 12/29/20 11:01 12/29/20 11:01 Temperature -Last 24 Hours Temperature 98.6 F Temperature 99.2 F Temperature 99 F Temperature 98.2 F - Labs CBC & Chem 7: 12/29/20 05:16 12/29/20 05:16 Labs: Abnormal lab results 12/28/20 12/28/20 12/28/20 Range/Units 03:09 11:34 15:00 RBC (3.65-5.03) M/mm3 Hgb (11.8-15.2) gm/dl Hct (35.5-45.6) % RDW (13.2-15.2) % Plt Count (140-440) K/mm3 Seg Neuts % (Manual) (40.0-70.0) % Lymphocytes % (Manual) (13.4-35.0) % Lymphocytes # (Manual) (1.2-5.4) K/mm3 ABG pH 7.474 H 7.461 H (7.350-7.450) pH Units POC ABG pO2 72.2 L (83-108) mmHg ABG Hemoglobin 7.8 L 8.2 L (14.0-18.0) gm/dl ABG Oxyhemoglobin 93.6 L (94-98) ABG Sodium 134.1 L (136.0-145.0) mmol/L ABG Potassium 3.2 L (3.40-4.50) mmol/L ABG Glucose 135 H (65-95) mg/dL Sodium (137-145) mmol/L Potassium (3.6-5.0) mmol/L Chloride (98-107) mmol/L BUN (9-20) mg/dL Creatinine (0.8-1.3) mg/dL Glucose (75-100) mg/dL POC Glucose 137 H (70-105) mg/dL Calcium (8.4-10.2) mg/dL Total Bilirubin (0.1-1.2) mg/dL AST (5-40) units/L Alkaline Phosphatase (35-129) units/L Total Protein (6.3-8.2) g/dL Albumin (3.9-5) g/dL Arterial Blood Glucose 135 H (65-95) mg/dL Arterial Blood Ionized Calcium 4.4 L (4.6-5.3) mg/dL 12/28/20 12/28/20 12/29/20 Range/Units 17:35 19:44 00:21 RBC (3.65-5.03) M/mm3 Hgb (11.8-15.2) gm/dl Hct (35.5-45.6) % RDW (13.2-15.2) % Plt Count (140-440) K/mm3 Seg Neuts % (Manual) (40.0-70.0) % Lymphocytes % (Manual) (13.4-35.0) % Lymphocytes # (Manual) (1.2-5.4) K/mm3 ABG pH (7.350-7.450) pH Units POC ABG pO2 (83-108) mmHg ABG Hemoglobin (14.0-18.0) gm/dl ABG Oxyhemoglobin (94-98) ABG Sodium (136.0-145.0) mmol/L ABG Potassium (3.40-4.50) mmol/L ABG Glucose (65-95) mg/dL Sodium 135 L (137-145) mmol/L Potassium (3.6-5.0) mmol/L Chloride 96.6 L (98-107) mmol/L BUN 47 H (9-20) mg/dL Creatinine 7.4 H (0.8-1.3) mg/dL Glucose 130 H (75-100) mg/dL POC Glucose 144 H 142 H (70-105) mg/dL Calcium 8.3 L (8.4-10.2) mg/dL Total Bilirubin (0.1-1.2) mg/dL AST (5-40) units/L Alkaline Phosphatase (35-129) units/L Total Protein (6.3-8.2) g/dL Albumin (3.9-5) g/dL Arterial Blood Glucose (65-95) mg/dL Arterial Blood Ionized Calcium (4.6-5.3) mg/dL 12/29/20 12/29/20 12/29/20 Range/Units 05:16 05:16 05:26 RBC 2.53 L (3.65-5.03) M/mm3 Hgb 7.7 L (11.8-15.2) gm/dl Hct 22.8 L (35.5-45.6) % RDW 17.0 H (13.2-15.2) % Plt Count 130 L (140-440) K/mm3 Seg Neuts % (Manual) 79.0 H (40.0-70.0) % Lymphocytes % (Manual) 9.0 L (13.4-35.0) % Lymphocytes # (Manual) 0.6 L (1.2-5.4) K/mm3 ABG pH (7.350-7.450) pH Units POC ABG pO2 (83-108) mmHg ABG Hemoglobin (14.0-18.0) gm/dl ABG Oxyhemoglobin (94-98) ABG Sodium (136.0-145.0) mmol/L ABG Potassium (3.40-4.50) mmol/L ABG Glucose (65-95) mg/dL Sodium (137-145) mmol/L Potassium 3.4 L (3.6-5.0) mmol/L Chloride 96.6 L (98-107) mmol/L BUN 59 H (9-20) mg/dL Creatinine 8.3 H (0.8-1.3) mg/dL Glucose 127 H (75-100) mg/dL POC Glucose 141 H (70-105) mg/dL Calcium 8.2 L (8.4-10.2) mg/dL Total Bilirubin 3.00 H (0.1-1.2) mg/dL AST 88 H (5-40) units/L Alkaline Phosphatase 188 H (35-129) units/L Total Protein 5.1 L (6.3-8.2) g/dL Albumin 2.8 L (3.9-5) g/dL Arterial Blood Glucose (65-95) mg/dL Arterial Blood Ionized Calcium (4.6-5.3) mg/dL
--- NOTE | 2020-12-29 12:40 | Progress Note ---
Assessment and Plan Assessment: - ESRD on peritoneal dialysis. He has been on peritoneal dialysis for the past 2 years. No history of peritonitis. - Abdominal pain. CT scan without organ perforation. Likely peritonitis related complications - small bowel obstruction s/p exp, necrotic bowel - Hypertension - Hyperkalemia - Anemia of ESRD - Hyperglycemia - severe sepsis - gram positive cocci bacteremia - Postoperative ileus - respiratory failure on vent Plan: - transitioned to HD, continue HD MWF or prn, due tomorrow, no indication for HD today per labs/volume - appreciate vascular for permacath placement LIJ on 12/27; pulm removed RIJ vascath 12/28 - continue IV empiric abx per ID - s/p ex lap, now off PD, will not be able to continue pd with adhesion and sbo s/p resection - uf as tolerated with HD - will need outpatient hd placement - stopped binders and sensipar - strict i/os - keep MAP >65, vasopressors prn - continue albumin IV - monitor electrolytes daily - appreciate multidisplinary approach to care from surgery, ID, pulm input Subjective Date of service: 12/29/20 Principal diagnosis: Ac hypoxemic resp failure; Severe Sepsis; Peritonitis; Acute SBO; ESRD; CHF Interval history: Extubated yesterday, now on CPAP this AM Objective - Exam Narrative Exam: - General Limitations: Physical Limitation General appearance: alert, on CPAP - Head Head exam: Present: atraumatic, normocephalic - Eye Eye exam: Present: normal appearance, EOMI - ENT ENT exam: Present: ET tube - Neck Neck exam: Present: normal inspection - Respiratory Respiratory exam: coarse lung sounds - Cardiovascular Cardiovascular Exam: Present: normal rhythm, tachycardia - GI/Abdominal GI/Abdominal exam: Present: soft, distended (slightly), tenderness (per iumbilical ) - Extremities Exam Extremities exam: Present: normal inspection; LIJ CVC noted - Neurological Exam Neurological exam: alert but sedated - Psychiatric Psychiatric exam: opens eyes - Skin Skin exam: Present: warm, dry, intact, normal color - Vital Signs Vital signs: Vital Signs - 12hr 12/29/20 12/29/20 12/29/20 01:00 01:30 02:01 Temperature Pulse Rate 98 H 100 H 96 H Pulse Rate [ From Monitor] Respiratory 21 16 16 Rate Blood Pressure 147/95 124/91 136/79 O2 Sat by Pulse 97 Oximetry 12/29/20 12/29/20 12/29/20 02:30 03:00 03:30 Temperature Pulse Rate 113 H 128 H 107 H Pulse Rate [ From Monitor] Respiratory 17 29 H 17 Rate Blood Pressure 141/84 138/90 138/83 O2 Sat by Pulse 94 94 95 Oximetry 12/29/20 12/29/20 12/29/20 04:00 04:08 04:30 Temperature Pulse Rate 88 84 86 Pulse Rate [ From Monitor] Respiratory 17 17 17 Rate Blood Pressure 136/87 136/87 146/88 O2 Sat by Pulse 95 95 94 Oximetry 12/29/20 12/29/20 12/29/20 05:01 05:31 06:00 Temperature Pulse Rate 126 H 102 H 98 H Pulse Rate [ From Monitor] Respiratory 25 H 37 H 18 Rate Blood Pressure 138/78 148/96 145/90 O2 Sat by Pulse Oximetry 12/29/20 12/29/20 12/29/20 06:31 07:00 07:31 Temperature Pulse Rate 78 81 91 H Pulse Rate [ From Monitor] Respiratory 17 17 17 Rate Blood Pressure 140/92 139/88 135/87 O2 Sat by Pulse 97 Oximetry 12/29/20 12/29/20 12/29/20 07:51 08:00 08:30 Temperature 98.6 F Pulse Rate 93 H 92 H Pulse Rate [ 110 H From Monitor] Respiratory 22 18 Rate Blood Pressure 139/87 135/84 O2 Sat by Pulse 96 98 Oximetry 12/29/20 12/29/20 12/29/20 09:01 09:30 10:01 Temperature Pulse Rate 83 105 H 97 H Pulse Rate [ From Monitor] Respiratory 19 18 21 Rate Blood Pressure 137/85 146/90 142/87 O2 Sat by Pulse Oximetry 12/29/20 12/29/20 10:30 11:01 Temperature Pulse Rate 110 H 104 H Pulse Rate [ From Monitor] Respiratory 23 31 H Rate Blood Pressure 143/87 149/83 O2 Sat by Pulse 93 86 Oximetry - Lab 12/29/20 05:16 12/29/20 05:16 Most recent lab results ABG pH 7.474 (7.320-7.450) H 12/28/20 Unknown ABG pCO2 32.7 mm Hg 12/28/20 03:09 ABG pO2 83.2 mm Hg (80.0-90.0) 12/28/20 03:09 ABG HCO3 23.5 mmol/L (20.0-26.0) 12/28/20 03:09 ABG O2 Saturation 96.8 (0-100) 12/28/20 Unknown Calcium 8.2 mg/dL (8.4-10.2) L 12/29/20 05:16 Phosphorus 3.20 mg/dL (2.5-4.5) 12/29/20 05:16 Magnesium 2.00 mg/dL (1.7-2.3) 12/29/20 05:16 Medications & Allergies - Medications Allergies/Adverse Reactions: Allergies No Known Allergies Allergy (Verified 06/09/20 15:27) Home Medications: Home Medications Medication Instructions Recorded Confirmed Last Taken Type Albuterol Mdi (or & Nicu Only) 2 puff IH QID PRN #1 inhalation 04/01/17 11/01/20 10/31/20 09:00 Rx [ProAir HFA Inhaler] Calcium Acetate 667 mg PO DAILY 04/20/20 11/01/20 10/31/20 09:00 History Centrum Men's Tablet 1 tab PO DAILY 04/20/20 11/01/20 10/31/20 09:00 History Cinacalcet 30 mg PO DAILY 04/20/20 11/01/20 10/31/20 09:00 History Dialyvite with Zinc Tablet 1 tab PO DAILY 04/20/20 11/01/20 10/31/20 09:00 History Magnesium 250 mg PO BID 04/20/20 11/01/20 10/31/20 17:00 History Triamcinolone 0.1% 1 1000units TRANSDERMA DAILY 04/20/20 11/01/20 10/31/20 09:00 History Vit B12/Folic Acid/B6/Aa No.15 1,000 mg PO DAILY 04/20/20 11/01/20 10/31/20 09:00 History amLODIPine 10 mg PO DAILY 06/09/20 11/01/20 10/31/20 09:00 History AtorvaSTATin 40 mg PO HS 11/01/20 11/01/20 10/31/20 21:00 History Benadryl 25 mg PO HS 11/01/20 11/01/20 10/31/20 21:00 History Diclofenac 1 TRANSDERMA QID 11/01/20 10/31/20 19:00 History Fluticasone Propionate 1 spray INTRANASAL DAILY 11/01/20 11/01/20 10/31/20 09:00 History Vitamin D3 2,000 units 11/01/20 10/31/20 09:00 History carvediloL 12.5 mg PO DAILY 11/01/20 11/01/20 10/31/20 09:00 History hydrALAZINE 100 mg PO TID 11/01/20 11/01/20 10/31/20 19:00 History Active Medications: Generic Name Dose Route Start Last Admin Trade Name Freq PRN Reason Stop Dose Admin Albuterol 2.5 mg 12/22/20 19:42 Albuterol 2.5 Mg/3 Ml Nebu IH Q4HRT PRN Shortness Of Breath Famotidine 10 mg 12/24/20 13:00 12/29/20 09:27 Famotidine 20 Mg/2 Ml Inj IV 10 mg BID THOMAS Administration Fentanyl 50 mcg 12/24/20 11:35 Fentanyl 100 Mcg/2 Ml Inj IV Q10MIN PRN ANALGESIA Fentanyl 25 mcg 12/27/20 11:49 12/29/20 05:33 Fentanyl 100 Mcg/2 Ml Inj IV 25 mcg Q2H PRN Administration Pain , Severe (7-10) Heparin Sodium (Porcine) 5,000 unit 12/24/20 10:00 12/29/20 09:28 Heparin 5,000 Unit/1 Ml Vial SUB-Q 5,000 unit Q12HR THOMAS Administration Hydrophilic Ointment 1 applic 12/24/20 12:03 Lip Therapy Vaseline TP Q2H PRN Dry Lips Sodium Chloride 100 mls @ 999 mls/hr 12/23/20 11:03 Nacl 0.9% IV RYLAND PRN Hypotension Propofol 1,000 mg in 100 mls @ 5.484 mls/hr 12/23/20 19:00 12/24/20 18:54 Diprivan 10 Mg/Ml IV 0 mcg/kg/min TITR THOMAS 0 mls/hr Titration Protocol 10 MCG/KG/MIN Fluconazole 200 mg in 100 mls @ 100 mls/hr 12/27/20 13:00 12/28/20 13:27 Diflucan IV 100 mls/hr Q24H THOMAS Administration Protocol Amino Acids/Electrolytes/Dextrose 2,016 mls @ 84 mls/hr 12/28/20 20:00 12/28/20 21:37 Tpn Adult IV 12/29/20 19:59 84 mls/hr DAILY@1999 [facility] Administration Protocol Ampicillin Sodium/Sulbactam Sodium 1.5 gm in 50 mls @ 100 mls/hr 12/28/20 14:00 12/29/20 05:39 Unasyn/Ns 1.5 Gm/50 Ml IV 100 mls/hr Q8H THOMAS Administration Protocol Amiodarone HCl 900 mg/ 500 mls @ 33.333 mls/hr 12/28/20 17:00 12/28/20 17:03 Dextrose IV 1 mg/min DIRECT THOMAS 33.333 mls/hr Administration Protocol 1 MG/MIN Amino Acids/Electrolytes/Dextrose 2,016 mls @ 84 mls/hr 12/29/20 20:00 Tpn Adult IV 12/30/20 19:59 DAILY@1999 [facility] Protocol Morphine Sulfate 2 mg 12/23/20 10:00 12/27/20 01:36 Morphine 2 Mg/1 Ml Inj IV 2 mg Q4H PRN Administration Pain, Moderate (4-6) Multi-Ingred Cream/Lotion/Oil/Oint 1 applic 12/24/20 12:03 Mineral Oil/Petrolatum, White Ophth Oint 3.5 Gm OU Q4H PRN Dry Eye(s) Ondansetron HCl 4 mg 12/22/20 19:42 Ondansetron 4 Mg/2 Ml Inj IV Q8H PRN Nausea And Vomiting Scopolamine 1 each 12/28/20 16:00 12/28/20 15:41 Scopolamine Transdermal Patch 72 Hr TD 1 each Q72H THOMAS Administration Sodium Chloride 10 ml 12/22/20 22:00 12/29/20 09:28 Sodium Chloride 0.9% 10 Ml Flush Syringe IV 10 ml BID THOMAS Administration Sodium Chloride 10 ml 12/22/20 19:42 Sodium Chloride 0.9% 10 Ml Flush Syringe IV PRN PRN LINE FLUSH
[2020-12-29] MEDS: FLUCONAZOLE 200 MG 200 MG/100 ML BAG IV SCH (12:48)
--- NOTE | 2020-12-29 12:56 | Progress Note ---
Assessment and Plan Acute hypoxemic respiratory failure, on mechanical ventilatory support. Severe Sepsis Peritonitis Acute small-bowel obstruction with tissue necrosis. End-stage renal disease, on dialysis. Hypertension. Crohn's disease. Gastroesophageal reflux disease. Heart failure with reduced ejection fraction. Hyperkalemia. Anemia that is normocytic. Lactic acidosis. Oropharyngeal dysphagia - still with some element of macroglossia and will continue double dose Pepcid - will change BIPAP to prn due to risk of further gastric insufflation / distention from BIPAP - KCL 20 meq IV X 1 - rate control per cardiology recommendations - continue TPN till cleared for enteral intake - continue care as below otherwise; - continue to wean supplemental oxygen for target O2 sat's > 92% acutely - continue aspiration precautions - continue bronchodilators with pulmonary hygiene per RT - HD/UF per nephrology prescription for toxin and volume control - avoid nephrotoxins, renally dose all medications - continue accuchecks with glycemic control per SSI for target blood glucose of < 180 mg/dL; avoid hypoglycemia - sedation prn for target RASS 0 to -1 - continue to avoid benzodiazepine's, reduce the possibility of delirium - complete AB's per ID rec's - prn analgesia per CPOT score - Maintenance of sleep-wake cycle, avoid delirium - enteral nutritional support at goal rate as tolerated (once cleared by surgeon ) - G.I. & VTE prophylaxis - PT/OT/ROM exercises - continue mobility protocols for pressure ulcer prophylaxis - Monitor hemodynamics closely - continue other care per attending / other consultants - discharge planning ongoing concurrently .... Re-evaluate in am & prn ..... will transfer to [facility] CONDITION: FAIR PROGNOSIS: GUARDED CODE STATUS: FULL CODE I have spent ( >35 ) minutes with the patient w/ >50% of the time spent counseling and/or coordinating care for this patient. Counseling topics and/or how time was spent coordinating patient's care is outlined in the impression and plan above. Subjective Date of service: 12/29/20 Principal diagnosis: Ac hypoxemic resp failure; Severe Sepsis; Peritonitis; Acute SBO; ESRD; CHF Interval history: Patient is seen today for: Ac hypoxemic resp failure; Severe Sepsis; Peritonitis; Acute SBO; ESRD on Dialysis; HTN; Crohn's disease; HFrEF Seen and examined at bedside; 24hour events reviewed; nursing and respiratory care staff consulted; no adverse overnight events reported to me; resting in bed; episodes compatible with delirium today; no emesis or overt aspiration but abdomen remains distended; on 35% Venti-mask and oxygenating well; went into A- fib with RVR yesterday and now on amiodarone drip; cardiology consulted Objective Vital Signs - 12hr 12/29/20 12/29/20 12/29/20 01:00 01:30 02:01 Temperature Pulse Rate 98 H 100 H 96 H Pulse Rate [ From Monitor] Respiratory 21 16 16 Rate Blood Pressure 147/95 124/91 136/79 O2 Sat by Pulse 97 Oximetry 12/29/20 12/29/20 12/29/20 02:30 03:00 03:30 Temperature Pulse Rate 113 H 128 H 107 H Pulse Rate [ From Monitor] Respiratory 17 29 H 17 Rate Blood Pressure 141/84 138/90 138/83 O2 Sat by Pulse 94 94 95 Oximetry 12/29/20 12/29/20 12/29/20 04:00 04:08 04:30 Temperature Pulse Rate 88 84 86 Pulse Rate [ From Monitor] Respiratory 17 17 17 Rate Blood Pressure 136/87 136/87 146/88 O2 Sat by Pulse 95 95 94 Oximetry 12/29/20 12/29/20 12/29/20 05:01 05:31 06:00 Temperature Pulse Rate 126 H 102 H 98 H Pulse Rate [ From Monitor] Respiratory 25 H 37 H 18 Rate Blood Pressure 138/78 148/96 145/90 O2 Sat by Pulse Oximetry 12/29/20 12/29/20 12/29/20 06:31 07:00 07:31 Temperature Pulse Rate 78 81 91 H Pulse Rate [ From Monitor] Respiratory 17 17 17 Rate Blood Pressure 140/92 139/88 135/87 O2 Sat by Pulse 97 Oximetry 12/29/20 12/29/20 12/29/20 07:51 08:00 08:30 Temperature 98.6 F Pulse Rate 93 H 92 H Pulse Rate [ 110 H From Monitor] Respiratory 22 18 Rate Blood Pressure 139/87 135/84 O2 Sat by Pulse 96 98 Oximetry 12/29/20 12/29/20 12/29/20 09:01 09:30 10:01 Temperature Pulse Rate 83 105 H 97 H Pulse Rate [ From Monitor] Respiratory 19 18 21 Rate Blood Pressure 137/85 146/90 142/87 O2 Sat by Pulse Oximetry 12/29/20 12/29/20 10:30 11:01 Temperature Pulse Rate 110 H 104 H Pulse Rate [ From Monitor] Respiratory 23 31 H Rate Blood Pressure 143/87 149/83 O2 Sat by Pulse 93 86 Oximetry Constitutional: appears uncomfortable, other (elderly male with mildly increased respiratory effort at rest ) Eyes: non-icteric ENT: oropharynx moist, oropharyngeal exudate pre (small volume, clear), other (extubated) Neck: supple, no lymphadenopathy, no JVD Effort: mildly labored Ascultation: Bilateral: diminished breath sounds, rhonchi (scant) Percussion: Bilateral: not dull Cardiovascular: regular rate and rhythm Gastrointestinal: hypoactive bowel sounds, soft, tender (mild), non-distended (protuberant) Integumentary: other (popst surgical changes) Extremities: no cyanosis, no edema, pulses normal, no ischemia or petechiae Neurologic: non-focal exam (grossly), pupils equal and round, CN II-XII normal Psychiatric: mood appropriate, affect normal CBC and BMP: 12/29/20 05:16 12/29/20 05:16 ABG, PT/INR, D-dimer: ABG ABG pH 7.474 (7.320-7.450) H 12/28/20 Unknown POC ABG pCO2 32.7 mmHg (32.0-48.0) 12/28/20 Unknown ABG pCO2 32.7 mm Hg 12/28/20 03:09 POC ABG pO2 83.2 mmHg (83-108) 12/28/20 Unknown ABG pO2 83.2 mm Hg (80.0-90.0) 12/28/20 03:09 POC ABG HCO3 23.5 12/28/20 Unknown ABG O2 Saturation 96.8 (0-100) 12/28/20 Unknown PT/INR, D-dimer PT 13.8 Sec. (12.2-14.9) 12/22/20 14:38 INR 1.07 (0.87-1.13) 12/22/20 14:38 Abnormal lab findings: Abnormal Labs 12/22/20 12/22/20 12/22/20 14:38 14:38 14:38 WBC RBC Hgb 11.2 L Hct 35.0 L RDW 16.7 H Plt Count Lymph % (Auto) [place] % (Auto) Lymph # (Auto) Seg Neutrophils % Seg Neuts % (Manual) 94.0 H Lymphocytes % (Manual) 5.0 L Seg Neutrophils # Man Lymphocytes # (Manual) 0.3 L ABG pH POC ABG pCO2 POC ABG pO2 ABG pO2 ABG HCO3 ABG O2 Saturation ABG Base Excess ABG Hemoglobin ABG Oxyhemoglobin ABG Sodium ABG Potassium ABG Chloride ABG Glucose Oxyhemoglobin Sodium Potassium Chloride Carbon Dioxide BUN 58 H Creatinine 13.2 H Glucose 113 H POC Glucose Lactic Acid 3.60 H* Calcium Phosphorus Magnesium Total Bilirubin 1.30 H AST ALT Alkaline Phosphatase 155 H Total Protein Albumin Arterial Blood Glucose Arterial Blood Ionized Calcium Crossmatch 12/22/20 12/22/20 12/23/20 16:26 17:47 05:22 WBC RBC Hgb Hct RDW Plt Count Lymph % (Auto) [place] % (Auto) Lymph # (Auto) Seg Neutrophils % Seg Neuts % (Manual) Lymphocytes % (Manual) Seg Neutrophils # Man Lymphocytes # (Manual) ABG pH POC ABG pCO2 POC ABG pO2 ABG pO2 ABG HCO3 ABG O2 Saturation ABG Base Excess ABG Hemoglobin ABG Oxyhemoglobin ABG Sodium ABG Potassium ABG Chloride ABG Glucose Oxyhemoglobin Sodium Potassium Chloride Carbon Dioxide BUN Creatinine Glucose POC Glucose Lactic Acid 2.80 H* 3.10 H* 2.30 H* Calcium Phosphorus Magnesium Total Bilirubin AST ALT Alkaline Phosphatase Total Protein Albumin Arterial Blood Glucose Arterial Blood Ionized Calcium Crossmatch 12/23/20 12/23/20 12/23/20 05:22 05:22 06:35 WBC 12.1 H RBC Hgb 11.0 L Hct 33.7 L RDW 16.9 H Plt Count Lymph % (Auto) [place] % (Auto) Lymph # (Auto) Seg Neutrophils % Seg Neuts % (Manual) 93.0 H Lymphocytes % (Manual) 1.0 L Seg Neutrophils # Man 11.3 H Lymphocytes # (Manual) 0.1 L ABG pH POC ABG pCO2 POC ABG pO2 ABG pO2 ABG HCO3 ABG O2 Saturation ABG Base Excess ABG Hemoglobin ABG Oxyhemoglobin ABG Sodium ABG Potassium ABG Chloride ABG Glucose Oxyhemoglobin Sodium Potassium 5.7 H D Chloride Carbon Dioxide BUN 73 H Creatinine 14.2 H Glucose POC Glucose Lactic Acid 2.30 H* Calcium 7.9 L Phosphorus Magnesium Total Bilirubin 1.40 H AST 119 H ALT 130 H Alkaline Phosphatase 183 H Total Protein 6.1 L Albumin 3.6 L Arterial Blood Glucose Arterial Blood Ionized Calcium Crossmatch 12/23/20 12/23/20 12/23/20 11:40 13:53 16:47 WBC RBC Hgb 10.0 L Hct 30.4 L RDW Plt Count Lymph % (Auto) [place] % (Auto) Lymph # (Auto) Seg Neutrophils % Seg Neuts % (Manual) Lymphocytes % (Manual) Seg Neutrophils # Man Lymphocytes # (Manual) ABG pH POC ABG pCO2 POC ABG pO2 137.5 H ABG pO2 ABG HCO3 ABG O2 Saturation ABG Base Excess ABG Hemoglobin 9.7 L ABG Oxyhemoglobin ABG Sodium 134.1 L ABG Potassium 6.6 H ABG Chloride ABG Glucose 103 H Oxyhemoglobin Sodium Potassium Chloride Carbon Dioxide BUN Creatinine Glucose POC Glucose Lactic Acid Calcium Phosphorus Magnesium Total Bilirubin AST ALT Alkaline Phosphatase Total Protein Albumin Arterial Blood Glucose 103 H Arterial Blood Ionized Calcium 3.8 L Crossmatch See Detail 12/23/20 12/23/20 12/24/20 20:35 20:40 01:20 WBC RBC Hgb Hct RDW Plt Count Lymph % (Auto) [place] % (Auto) Lymph # (Auto) Seg Neutrophils % Seg Neuts % (Manual) Lymphocytes % (Manual) Seg Neutrophils # Man Lymphocytes # (Manual) ABG pH 7.252 L POC ABG pCO2 POC ABG pO2 ABG pO2 50.1 L ABG HCO3 ABG O2 Saturation 81.1 L ABG Base Excess -5.9 L ABG Hemoglobin 12.1 L ABG Oxyhemoglobin ABG Sodium ABG Potassium ABG Chloride ABG Glucose Oxyhemoglobin 78.6 L Sodium 134 L Potassium 6.9 H* D 6.3 H* Chloride Carbon Dioxide 18 L 20 L BUN 87 H 91 H Creatinine 15.3 H 15.3 H Glucose 103 H POC Glucose Lactic Acid Calcium 6.9 L 7.5 L Phosphorus Magnesium Total Bilirubin AST ALT Alkaline Phosphatase Total Protein Albumin Arterial Blood Glucose Arterial Blood Ionized Calcium Crossmatch 12/24/20 12/24/20 12/24/20 04:00 10:29 10:29 WBC RBC 3.49 L Hgb 10.5 L Hct 31.2 L RDW 17.5 H Plt Count 124 L Lymph % (Auto) 3.7 L [place] % (Auto) 9.8 H Lymph # (Auto) 0.2 L Seg Neutrophils % 85.9 H Seg Neuts % (Manual) Lymphocytes % (Manual) Seg Neutrophils # Man Lymphocytes # (Manual) ABG pH POC ABG pCO2 28.1 L POC ABG pO2 ABG pO2 ABG HCO3 ABG O2 Saturation ABG Base Excess ABG Hemoglobin ABG Oxyhemoglobin ABG Sodium 133.9 L ABG Potassium 5.3 H ABG Chloride 108.0 H ABG Glucose Oxyhemoglobin Sodium Potassium 5.6 H Chloride Carbon Dioxide 19 L BUN 99 H Creatinine 16.9 H Glucose 52 L POC Glucose Lactic Acid Calcium 7.6 L Phosphorus Magnesium Total Bilirubin 3.50 H AST 67 H ALT 71 H Alkaline Phosphatase Total Protein 3.5 L D Albumin 2.1 L Arterial Blood Glucose Arterial Blood Ionized Calcium 4.0 L Crossmatch 12/25/20 12/25/20 12/25/20 03:33 04:00 04:00 WBC 3.8 L RBC 2.90 L Hgb 8.6 L Hct 25.7 L RDW 16.7 H Plt Count 113 L Lymph % (Auto) [place] % (Auto) Lymph # (Auto) Seg Neutrophils % Seg Neuts % (Manual) Lymphocytes % (Manual) Seg Neutrophils # Man Lymphocytes # (Manual) ABG pH 7.544 H POC ABG pCO2 28.2 L POC ABG pO2 62.8 L ABG pO2 ABG HCO3 ABG O2 Saturation ABG Base Excess ABG Hemoglobin 9.3 L ABG Oxyhemoglobin 93.0 L ABG Sodium 130.3 L ABG Potassium ABG Chloride ABG Glucose 97 H Oxyhemoglobin Sodium Potassium Chloride Carbon Dioxide BUN 62 H Creatinine 11.4 H Glucose POC Glucose Lactic Acid Calcium 7.7 L Phosphorus 5.00 H Magnesium Total Bilirubin AST ALT Alkaline Phosphatase Total Protein Albumin Arterial Blood Glucose 97 H Arterial Blood Ionized Calcium 3.9 L Crossmatch 12/26/20 12/26/20 12/27/20 04:46 Unknown 03:40 WBC 4.1 L RBC 2.61 L Hgb 7.8 L Hct 23.4 L RDW 17.1 H Plt Count 119 L Lymph % (Auto) 5.3 L [place] % (Auto) 10.6 H Lymph # (Auto) 0.2 L Seg Neutrophils % 78.8 H Seg Neuts % (Manual) Lymphocytes % (Manual) Seg Neutrophils # Man Lymphocytes # (Manual) ABG pH 7.333 L 7.332 L POC ABG pCO2 POC ABG pO2 ABG pO2 ABG HCO3 26.9 H ABG O2 Saturation ABG Base Excess -2.4 L ABG Hemoglobin 6.8 L 7.2 L ABG Oxyhemoglobin ABG Sodium ABG Potassium ABG Chloride ABG Glucose Oxyhemoglobin 93.0 L 93.1 L Sodium Potassium Chloride Carbon Dioxide BUN Creatinine Glucose POC Glucose Lactic Acid Calcium Phosphorus Magnesium Total Bilirubin AST ALT Alkaline Phosphatase Total Protein Albumin Arterial Blood Glucose Arterial Blood Ionized Calcium Crossmatch 12/27/20 12/27/20 12/27/20 06:40 06:40 11:22 WBC 4.4 L RBC 2.49 L Hgb 7.4 L Hct 22.4 L RDW 17.1 H Plt Count 111 L Lymph % (Auto) 6.7 L [place] % (Auto) 12.6 H Lymph # (Auto) 0.3 L Seg Neutrophils % 77.6 H Seg Neuts % (Manual) Lymphocytes % (Manual) Seg Neutrophils # Man Lymphocytes # (Manual) ABG pH POC ABG pCO2 POC ABG pO2 ABG pO2 ABG HCO3 ABG O2 Saturation ABG Base Excess ABG Hemoglobin ABG Oxyhemoglobin ABG Sodium ABG Potassium ABG Chloride ABG Glucose Oxyhemoglobin Sodium Potassium Chloride Carbon Dioxide BUN 64 H Creatinine 9.8 H Glucose 147 H POC Glucose 134 H Lactic Acid Calcium 8.3 L Phosphorus 5.00 H Magnesium Total Bilirubin 3.70 H AST 72 H ALT Alkaline Phosphatase 142 H Total Protein 5.1 L D Albumin 2.9 L Arterial Blood Glucose Arterial Blood Ionized Calcium Crossmatch 12/27/20 12/27/20 12/28/20 17:29 23:31 03:09 WBC RBC Hgb Hct RDW Plt Count Lymph % (Auto) [place] % (Auto) Lymph # (Auto) Seg Neutrophils % Seg Neuts % (Manual) Lymphocytes % (Manual) Seg Neutrophils # Man Lymphocytes # (Manual) ABG pH 7.474 H POC ABG pCO2 POC ABG pO2 ABG pO2 ABG HCO3 ABG O2 Saturation ABG Base Excess ABG Hemoglobin 7.8 L ABG Oxyhemoglobin ABG Sodium ABG Potassium ABG Chloride ABG Glucose Oxyhemoglobin Sodium Potassium Chloride Carbon Dioxide BUN Creatinine Glucose POC Glucose 121 H 131 H Lactic Acid Calcium Phosphorus Magnesium Total Bilirubin AST ALT Alkaline Phosphatase Total Protein Albumin Arterial Blood Glucose Arterial Blood Ionized Calcium Crossmatch 12/28/20 12/28/20 12/28/20 05:37 05:40 05:40 WBC 4.3 L RBC 2.40 L Hgb 7.2 L Hct 21.5 L RDW 17.4 H Plt Count 112 L Lymph % (Auto) 6.5 L [place] % (Auto) 16.7 H Lymph # (Auto) 0.3 L Seg Neutrophils % 71.1 H Seg Neuts % (Manual) Lymphocytes % (Manual) Seg Neutrophils # Man Lymphocytes # (Manual) ABG pH POC ABG pCO2 POC ABG pO2 ABG pO2 ABG HCO3 ABG O2 Saturation ABG Base Excess ABG Hemoglobin ABG Oxyhemoglobin ABG Sodium ABG Potassium ABG Chloride ABG Glucose Oxyhemoglobin Sodium Potassium Chloride Carbon Dioxide BUN 85 H Creatinine 11.5 H Glucose 132 H POC Glucose 121 H Lactic Acid Calcium 8.2 L Phosphorus Magnesium 2.40 H Total Bilirubin 3.80 H AST 70 H ALT Alkaline Phosphatase 176 H Total Protein 5.0 L Albumin 2.9 L Arterial Blood Glucose Arterial Blood Ionized Calcium Crossmatch 12/28/20 12/28/20 12/28/20 11:34 15:00 17:35 WBC RBC Hgb Hct RDW Plt Count Lymph % (Auto) [place] % (Auto) Lymph # (Auto) Seg Neutrophils % Seg Neuts % (Manual) Lymphocytes % (Manual) Seg Neutrophils # Man Lymphocytes # (Manual) ABG pH 7.461 H POC ABG pCO2 POC ABG pO2 72.2 L ABG pO2 ABG HCO3 ABG O2 Saturation ABG Base Excess ABG Hemoglobin 8.2 L ABG Oxyhemoglobin 93.6 L ABG Sodium 134.1 L ABG Potassium 3.2 L ABG Chloride ABG Glucose 135 H Oxyhemoglobin Sodium Potassium Chloride Carbon Dioxide BUN Creatinine Glucose POC Glucose 137 H 144 H Lactic Acid Calcium Phosphorus Magnesium Total Bilirubin AST ALT Alkaline Phosphatase Total Protein Albumin Arterial Blood Glucose 135 H Arterial Blood Ionized Calcium 4.4 L Crossmatch 12/28/20 12/28/20 12/29/20 19:44 Unknown 00:21 WBC RBC Hgb Hct RDW Plt Count Lymph % (Auto) [place] % (Auto) Lymph # (Auto) Seg Neutrophils % Seg Neuts % (Manual) Lymphocytes % (Manual) Seg Neutrophils # Man Lymphocytes # (Manual) ABG pH 7.474 H POC ABG pCO2 POC ABG pO2 ABG pO2 ABG HCO3 ABG O2 Saturation ABG Base Excess ABG Hemoglobin 7.8 L ABG Oxyhemoglobin ABG Sodium 133.2 L ABG Potassium ABG Chloride ABG Glucose 139 H Oxyhemoglobin Sodium 135 L Potassium Chloride 96.6 L Carbon Dioxide BUN 47 H Creatinine 7.4 H Glucose 130 H POC Glucose 142 H Lactic Acid Calcium 8.3 L Phosphorus Magnesium Total Bilirubin AST ALT Alkaline Phosphatase Total Protein Albumin Arterial Blood Glucose 139 H Arterial Blood Ionized Calcium 4.3 L Crossmatch 12/29/20 12/29/20 12/29/20 05:16 05:16 05:26 WBC RBC 2.53 L Hgb 7.7 L Hct 22.8 L RDW 17.0 H Plt Count 130 L Lymph % (Auto) [place] % (Auto) Lymph # (Auto) Seg Neutrophils % Seg Neuts % (Manual) 79.0 H Lymphocytes % (Manual) 9.0 L Seg Neutrophils # Man Lymphocytes # (Manual) 0.6 L ABG pH POC ABG pCO2 POC ABG pO2 ABG pO2 ABG HCO3 ABG O2 Saturation ABG Base Excess ABG Hemoglobin ABG Oxyhemoglobin ABG Sodium ABG Potassium ABG Chloride ABG Glucose Oxyhemoglobin Sodium Potassium 3.4 L Chloride 96.6 L Carbon Dioxide BUN 59 H Creatinine 8.3 H Glucose 127 H POC Glucose 141 H Lactic Acid Calcium 8.2 L Phosphorus Magnesium Total Bilirubin 3.00 H AST 88 H ALT Alkaline Phosphatase 188 H Total Protein 5.1 L Albumin 2.8 L Arterial Blood Glucose Arterial Blood Ionized Calcium Crossmatch 12/29/20 11:33 WBC RBC Hgb Hct RDW Plt Count Lymph % (Auto) [place] % (Auto) Lymph # (Auto) Seg Neutrophils % Seg Neuts % (Manual) Lymphocytes % (Manual) Seg Neutrophils # Man Lymphocytes # (Manual) ABG pH POC ABG pCO2 POC ABG pO2 ABG pO2 ABG HCO3 ABG O2 Saturation ABG Base Excess ABG Hemoglobin ABG Oxyhemoglobin ABG Sodium ABG Potassium ABG Chloride ABG Glucose Oxyhemoglobin Sodium Potassium Chloride Carbon Dioxide BUN Creatinine Glucose POC Glucose 144 H Lactic Acid Calcium Phosphorus Magnesium Total Bilirubin AST ALT Alkaline Phosphatase Total Protein Albumin Arterial Blood Glucose Arterial Blood Ionized Calcium Crossmatch Allied health notes reviewed: nursing
--- NOTE | 2020-12-29 13:36 | Consultation ---
History of Present Illness Consult date: 12/29/20 Consult reason: atrial fibrillation History of present illness: The patient is a 60-year-old man admitted to this hospital over 1 week ago with acute abdominal pain, was found with small bowel obstruction, underwent expiratory laparotomy with lysis of adhesions, small bowel restriction and reanastomosis, and subsequently admitted to the CCU. His CCU course has been notable for persistent sepsis, respiratory failure and was finally able to be extubated just yesterday. He remains n.p.o. more than 7 days after his surgery. Cardiology consultation is requested for the finding of acute onset rapid atrial fibrillation which began yesterday evening. Previous to that, the patient has been in a stable sinus rhythm. EKG with atrial fibrillation showed no ischemic ST or T wave changes. We ordered intravenous amiodarone, and this morning, there has been optimal rate control with his ventricular rate now in the 90s. He remains in atrial fibrillation. Patient has an extensive cardiac history of a nonischemic cardiomyopathy. In December 2014, a cardiac catheterization in this hospital documented the absence of significant coronary artery disease. A simultaneous echocardiogram reported a left ventricular ejection fraction about 30 to 35%. It is presumed that he was placed on guideline directed medical therapy, but I do not have outpatient records of any recent left ventricular function assessment within the past 1 to 2 years. There is no history of my record review of previous episodes of atrial fibrillation. Comorbidities include end-stage renal disease on hemodialysis. Past History Past Medical History: ESRD, heart failure, hypertension Past Surgical History: appendectomy, cholecystectomy, Other (L inguinal hernia repair) Medications and Allergies Allergies Allergy/AdvReac Type Severity Reaction Status Date / Time No Known Allergies Allergy Verified 06/09/20 15:27 Home Medications Medication Instructions Recorded Confirmed Last Taken Type Albuterol Mdi (or & Nicu Only) 2 puff IH QID PRN #1 inhalation 04/01/17 11/01/20 10/31/20 09:00 Rx [ProAir HFA Inhaler] Calcium Acetate 667 mg PO DAILY 04/20/20 11/01/20 10/31/20 09:00 History Centrum Men's Tablet 1 tab PO DAILY 04/20/20 11/01/20 10/31/20 09:00 History Cinacalcet 30 mg PO DAILY 04/20/20 11/01/20 10/31/20 09:00 History Dialyvite with Zinc Tablet 1 tab PO DAILY 04/20/20 11/01/20 10/31/20 09:00 History Magnesium 250 mg PO BID 04/20/20 11/01/20 10/31/20 17:00 History Triamcinolone 0.1% 1 1000units TRANSDERMA DAILY 04/20/20 11/01/20 10/31/20 09:00 History Vit B12/Folic Acid/B6/Aa No.15 1,000 mg PO DAILY 04/20/20 11/01/20 10/31/20 09:00 History amLODIPine 10 mg PO DAILY 06/09/20 11/01/20 10/31/20 09:00 History AtorvaSTATin 40 mg PO HS 11/01/20 11/01/20 10/31/20 21:00 History Benadryl 25 mg PO HS 11/01/20 11/01/20 10/31/20 21:00 History Diclofenac 1 TRANSDERMA QID 11/01/20 10/31/20 19:00 History Fluticasone Propionate 1 spray INTRANASAL DAILY 11/01/20 11/01/20 10/31/20 09:00 History Vitamin D3 2,000 units 11/01/20 10/31/20 09:00 History carvediloL 12.5 mg PO DAILY 11/01/20 11/01/20 10/31/20 09:00 History hydrALAZINE 100 mg PO TID 11/01/20 11/01/20 10/31/20 19:00 History Active Meds: Active Medications Albuterol (Albuterol 2.5 Mg/3 Ml Nebu) 2.5 mg IH Q4HRT PRN PRN Reason: Shortness Of Breath Famotidine (Famotidine 20 Mg/2 Ml Inj) 10 mg IV BID [facility] Last Admin: 12/29/20 09:27 Dose: 10 mg Documented by: Fentanyl (Fentanyl 100 Mcg/2 Ml Inj) 50 mcg IV Q10MIN PRN PRN Reason: ANALGESIA Fentanyl (Fentanyl 100 Mcg/2 Ml Inj) 25 mcg IV Q2H PRN PRN Reason: Pain , Severe (7-10) Last Admin: 12/29/20 05:33 Dose: 25 mcg Documented by: Heparin Sodium (Porcine) (Heparin 5,000 Unit/1 Ml Vial) 5,000 unit SUB-Q Q12HR [facility] Last Admin: 12/29/20 09:28 Dose: 5,000 unit Documented by: Hydrophilic Ointment (Lip Therapy Vaseline) 1 applic TP Q2H PRN PRN Reason: Dry Lips Sodium Chloride (Nacl 0.9%) 100 mls @ 999 mls/hr IV [facility] PRN PRN Reason: Hypotension Propofol (Diprivan 10 Mg/Ml) 1,000 mg in 100 mls @ 5.484 mls/hr IV TITR [facility]; Protocol Last Titration: 12/24/20 18:54 Dose: 0 mcg/kg/min, 0 mls/hr Documented by: Fluconazole (Diflucan) 200 mg in 100 mls @ 100 mls/hr IV Q24H [facility]; Protocol Last Admin: 12/29/20 12:48 Dose: 100 mls/hr Documented by: Amino Acids/Electrolytes/Dextrose (Tpn Adult) 2,016 mls @ 84 mls/hr IV DAILY@2000 [facility]; Protocol Stop: 12/29/20 19:59 Last Admin: 12/28/20 21:37 Dose: 84 mls/hr Documented by: Ampicillin Sodium/Sulbactam Sodium (Unasyn/Ns 1.5 Gm/50 Ml) 1.5 gm in 50 mls @ 100 mls/hr IV Q8H [facility]; Protocol Last Admin: 12/29/20 05:39 Dose: 100 mls/hr Documented by: Amiodarone HCl 900 mg/ (Dextrose) 500 mls @ 33.333 mls/hr IV DIRECT [facility]; Pro tocol Last Admin: 12/28/20 17:03 Dose: 1 mg/min, 33.333 mls/hr Documented by: Amino Acids/Electrolytes/Dextrose (Tpn Adult) 2,016 mls @ 84 mls/hr IV DAILY@2000 [facility]; Protocol Stop: 12/30/20 19:59 Morphine Sulfate (Morphine 2 Mg/1 Ml Inj) 2 mg IV Q4H PRN PRN Reason: Pain, Moderate (4-6) Last Admin: 12/27/20 01:36 Dose: 2 mg Documented by: Multi-Ingred Cream/Lotion/Oil/Oint (Mineral Oil/Petrolatum, White Ophth Oint 3.5 Gm) 1 applic OU Q4H PRN PRN Reason: Dry Eye(s) Ondansetron HCl (Ondansetron 4 Mg/2 Ml Inj) 4 mg IV Q8H PRN PRN Reason: Nausea And Vomiting Scopolamine (Scopolamine Transdermal Patch 72 Hr) 1 each TD Q72H [facility] Last Admin: 12/28/20 15:41 Dose: 1 each Documented by: Sodium Chloride (Sodium Chloride 0.9% 10 Ml Flush Syringe) 10 ml IV BID [facility] Last Admin: 12/29/20 09:28 Dose: 10 ml Documented by: Sodium Chloride (Sodium Chloride 0.9% 10 Ml Flush Syringe) 10 ml IV PRN PRN PRN Reason: LINE FLUSH Review of Systems ROS unobtainable: due to mental status Physical Examination Vital Signs Temp Pulse Resp BP Pulse Ox 101.2 F H 102 H 18 121/85 95 12/22/20 14:15 12/22/20 14:15 12/22/20 14:15 12/22/20 14:15 12/22/20 14:15 General appearance: no acute distress, cachectic HEENT: Positive: PERRL Neck: Positive: neck supple Cardiac: Positive: irregularly irregular Lungs: Positive: Decreased Breath Sounds Neuro: Positive: Weakness Abdomen: Positive: Soft Male genitourinary: Positive: deferred Skin: Positive: Clear Extremities: Absent: edema Results 12/29/20 05:16 12/29/20 05:16 Cardiac Enzymes 12/29/20 Range/Units 05:16 AST 88 H (5-40) units/L CBC 12/29/20 Range/Units 05:16 WBC 6.6 (4.5-11.0) K/mm3 RBC 2.53 L (3.65-5.03) M/mm3 Hgb 7.7 L (11.8-15.2) gm/dl Hct 22.8 L (35.5-45.6) % Plt Count 130 L (140-440) K/mm3 Comprehensive Metabolic Panel 12/28/20 12/29/20 Range/Units 19:44 05:16 Sodium 135 L 137 (137-145) mmol/L Potassium 3.6 3.4 L (3.6-5.0) mmol/L Chloride 96.6 L 96.6 L (98-107) mmol/L Carbon Dioxide 27 27 (22-30) mmol/L BUN 47 H 59 H (9-20) mg/dL Creatinine 7.4 H 8.3 H (0.8-1.3) mg/dL Glucose 130 H 127 H (75-100) mg/dL Calcium 8.3 L 8.2 L (8.4-10.2) mg/dL AST 88 H (5-40) units/L ALT 26 (7-56) units/L Alkaline Phosphatase 188 H (35-129) units/L Total Protein 5.1 L (6.3-8.2) g/dL Albumin 2.8 L (3.9-5) g/dL EKG interpretations - Telemetry EKG Rhythm: Atrial Fibrillation Assessment and Plan - Patient Problems (1) Atrial fibrillation Current Visit: Yes Status: Acute Plan to address problem: 60-year-old man with a history of a nonischemic cardiomyopathy, who was 1 week status post expiratory laparotomy for small bowel obstruction, develops new onset rapid atrial fibrillation. We have obtained optimal rate control with intravenous amiodarone. Patient is not a candidate for anticoagulation at this time due to his postoperative status and the presence of severe anemia with hematocrit currently 21-22. We will continue intravenous amiodarone, and intravenous metoprolol on a as needed basis for atrial fibrillation rate control and to enhance reversion to sinus rhythm. An echocardiogram has been ordered for left ventricular function assessment.
[2020-12-29] MEDS ORDERED: HALOPERIDOL LACTATE 5 MG/1 ML INJ IM PRN (14:07)
[2020-12-29] MEDS ORDERED: POTASSIUM CHLORIDE 20 MEQ 20 MEQ/100 ML BAG IV NR (14:09)
[2020-12-29] MEDS: METOPROLOL TARTRATE 5 MG/5 ML INJ IV SCH ×2 (16:16→21:40)
--- NOTE | 2020-12-29 16:36 | Progress Note ---
Assessment and Plan Assessment and plan: This is a 60-year-old male with ESRD on peritoneal dialysis, Crohn's, hypertension, systolic CHF (EF 35%) who was admitted with sepsis, peritonitis, small bowel obstruction and now has gram-positive cocci bacteremia. Sepsis Streptococcus bovis bacteremia/Prevotella bacteremia Gwendolyn albicans tracheal aspirate Small bowel obstruction/necrotic bowel s/p ex lap with extensive lysis of adhesions, 2 small bowel resections with primary anastomosis Acute hypoxic respiratory failure Postoperative ileus Atrial fibrillation with RVR Gwendolyn albicans in tracheal aspirate from 12/24 ESRD on PD, PermCath to be placed Transaminitis Systolic CHF(EF 35%) Crohn's disease Hypertension Hypokalemia -[facility], surgery, infectious disease, nephrology, vascular surgery, cardiology consulted, appreciate recommendations -S/p ex lap with extensive expectations, 2 small bowel resections with primary anastomosis with surgery on 12/23 -s/p PICC and Permacath placement with vascular surgery on 12/27 -Extubated on 12/28 -Transitioned to HD from PD -HD per nephro -NPO -PPN -NGT to LIS -IV antibiotics -12/29 echocardiogram shows moderate concentric LVH, small pericardial effusion, transmitral Doppler flow pattern is grade 1 abnormal relaxation pattern, left- ventricular systolic function normal, LVEF 50 to 55%, no wall motion abnormalities. -Tobacco abuse cessation counseling -Trend CBC, BMP DVT/GI prophylaxis: PPI, heparin subcu, SCDs to bilateral lower extremities while in bed Disposition: ICU Critical care statement The high probability of a clinically significant, sudden or life threatening deterioration of the [pulmonary, cardiac, neuro, renal] system(s) required my full and direct attention, intervention and personal management. The aggregate critical care time was [35] minutes. This time is in addition to time spent performing reported procedures but includes the following: [x] Data Review and interpretation [x] Patient assessment and monitoring of vital signs [x] Documentation [x] Medication orders and management History Interval history: This is a 60 YO Male with ESRD on PD, GERD, Crohn's Disease, Nicotine Dependence, HTN, Systolic CHF(EF 35%) who presented to the emergency department on 12/22 with complaints of abdominal pain which began shortly after eating fast food rated 10/10 which is periumbilical, constant, associated with fever, nausea and multiple sites of vomiting and self-reported inability to undergo PD. In the emergency room patient underwent a CT scan of the abdomen/pelvis which revealed evidence of partial small bowel obstruction, symptoms were consistent with bacterial peritonitis. Patient was admitted to the hospital service with sepsis, peritonitis, and small bowel obstruction with consults to general surgery, nephrology, infectious disease and [facility]. 12/23. Patient had temperature 101.2 F, tachycardia and elevated lactic acid on admission. Meet sepsis criteria. Started on IV antibiotics. ID has been consulted. Surgery consulted this a.m.-advised laparoscopy. He remains on NG tube connected to suction. 12/24. Patient was noted to have peritonitis yesterday and patient undergoing exploratory laparotomy. Patient remained intubated after procedure and is in ICU. Now on broad-spectrum antibiotics. ID on board. 12/25. Remains mechanically ventilated and sedated. Temp 103 Fahrenheit. Antibiotics broadened-ID added fluconazole and Flagyl. Blood cultures ordered. Plan to repeat CT abdomen tomorrow if not better. Surgery following. 12/26: Patient remains on mechanical ventilation on CMV tidal line 550, rate of 14, PEEP of 8 and 30% FiO2 and sedated on fentanyl 4 micrograms. Today we will remove his Jeffery and [facility] dropped his rate controlled him on CPAP. We will trend CBC given recent drop in H/H. 12/27: Patient remains intubated on CMV tidal volume 550, rate 12, PEEP 8 on 30% FiO2 at the time my examination. Patient's TPN will be changed to PPN. Patient's fentanyl drip will be changed to IV push fentanyl and have a permacath placed today and midline. Patient was placed on a spontaneous breathing trial was switched back to CMV prior to procedure. 12/28: Patient on fentanyl but awake and follows commands. At the time of my examination he was on a CPAP trial and is scheduled to receive HD today. s/o permacath and PICC placement with vascular yesterday. His blood culture grew Prevotella and addition to Streptococcus bovis. This evening Dr. Spicer attempted to extubate the patient and his heart rate went to the 180s. Stat EKG obtained and cardiology consulted. 12/29: Patient was started on amiodarone IV for A. fib RVR yesterday and today he is more rate controlled into the 70s and 80s. Patient was extubated yesterday and is currently on Ventimask. Patient will be transferred to [facility]. Patient continues to be n.p.o. with TPN and NG tube to LIS. He is hypokalemic today which was repleted. Hospitalist Physical - Constitutional Vitals: Temp Pulse Resp BP Pulse Ox 99.1 F 104 H 20 142/85 91 12/29/20 16:00 12/29/20 16:16 12/29/20 15:31 12/29/20 16:16 12/29/20 15:31 General appearance: Present: no acute distress - EENT Eyes: Present: PERRL, EOM intact ENT: clear oral mucosa, poor dentition - Neck Neck: Present: normal ROM - Respiratory Respiratory effort: normal Respiratory: bilateral: CTA - Cardiovascular Rhythm: irregularly irregular Heart Sounds: Present: S1 & S2. Absent: systolic murmur, diastolic murmur - Extremities Extremities: no ischemia, pulses intact, pulses symmetrical, normal temperature, normal color Peripheral Pulses: within normal limits - Abdominal General gastrointestinal: soft, non-tender, non-distended, hypoactive bowel sounds, absent bowel sounds - Integumentary Integumentary: Present: warm, dry - Psychiatric Psychiatric: cooperative, agitated - Neurologic Neurologic: CNII-XII intact, no focal deficits, moves all extremities - Allied Health Allied health notes reviewed: nursing, RT HEART Score - HEART Score Troponin: Troponin T 0.021 ng/mL (0.00-0.029) 12/22/20 14:38 Results - Labs CBC & Chem 7: 12/29/20 05:16 12/29/20 05:16 Labs: Laboratory Last Values WBC 6.6 K/mm3 (4.5-11.0) 12/29/20 05:16 RBC 2.53 M/mm3 (3.65-5.03) L 12/29/20 05:16 Hgb 7.7 gm/dl (11.8-15.2) L 12/29/20 05:16 Hct 22.8 % (35.5-45.6) L 12/29/20 05:16 MCV 90 fl (84-94) 12/29/20 05:16 MCH 30 pg (28-32) 12/29/20 05:16 MCHC 34 % (32-34) 12/29/20 05:16 RDW 17.0 % (13.2-15.2) H 12/29/20 05:16 Plt Count 130 K/mm3 (140-440) L 12/29/20 05:16 Lymph % (Auto) 6.5 % (13.4-35.0) L 12/28/20 05:40 Stevens % (Auto) 16.7 % (0.0-7.3) H 12/28/20 05:40 Eos % (Auto) 3.2 % (0.0-4.3) 12/28/20 05:40 Baso % (Auto) 1.0 % (0.0-1.8) 12/28/20 05:40 Lymph # (Auto) 0.3 K/mm3 (1.2-5.4) L 12/28/20 05:40 Stevens # (Auto) 0.7 K/mm3 (0.0-0.8) 12/28/20 05:40 Eos # (Auto) 0.1 K/mm3 (0.0-0.4) 12/28/20 05:40 Baso # (Auto) 0.0 K/mm3 (0.0-0.1) 12/28/20 05:40 Add Manual Diff Complete 12/29/20 05:16 Total Counted 100 12/29/20 05:16 Seg Neutrophils % 71.1 % (40.0-70.0) H 12/28/20 05:40 Seg Neuts % (Manual) 79.0 % (40.0-70.0) H 12/29/20 05:16 Band Neutrophils % 1.0 % 12/29/20 05:16 Lymphocytes % (Manual) 9.0 % (13.4-35.0) L 12/29/20 05:16 Reactive Lymphs % (Man) 1.0 % 12/29/20 05:16 Monocytes % (Manual) 6.0 % (0.0-7.3) 12/29/20 05:16 Eosinophils % (Manual) 2.0 % (0.0-4.3) 12/29/20 05:16 Metamyelocytes % 2.0 % 12/29/20 05:16 Nucleated RBC % Not Reportable 12/29/20 05:16 Seg Neutrophils # 3.1 K/mm3 (1.8-7.7) 12/28/20 05:40 Seg Neutrophils # Man 5.2 K/mm3 (1.8-7.7) 12/29/20 05:16 Band Neutrophils # 0.1 K/mm3 12/29/20 05:16 Lymphocytes # (Manual) 0.6 K/mm3 (1.2-5.4) L 12/29/20 05:16 Abs React Lymphs (Man) 0.1 K/mm3 12/29/20 05:16 Monocytes # (Manual) 0.4 K/mm3 (0.0-0.8) 12/29/20 05:16 Eosinophils # (Manual) 0.1 K/mm3 (0.0-0.4) 12/29/20 05:16 Basophils # (Manual) 0.0 K/mm3 (0.0-0.1) 12/29/20 05:16 Metamyelocytes # 0.1 K/mm3 12/29/20 05:16 Myelocytes # 0.0 K/mm3 12/29/20 05:16 Promyelocytes # 0.0 K/mm3 12/29/20 05:16 Blast Cells # 0.0 K/mm3 12/29/20 05:16 WBC Morphology Not Reportable 12/29/20 05:16 Hypersegmented Neuts Not Reportable 12/29/20 05:16 Hyposegmented Neuts Not Reportable 12/29/20 05:16 Hypogranular Neuts Not Reportable 12/29/20 05:16 Smudge Cells Not Reportable 12/29/20 05:16 Toxic Granulation Not Reportable 12/29/20 05:16 Toxic Vacuolation Not Reportable 12/29/20 05:16 Dohle Bodies Not Reportable 12/29/20 05:16 Pelger-Huet Anomaly Not Reportable 12/29/20 05:16 Lamar Rods Not Reportable 12/29/20 05:16 Platelet Estimate Consistent w auto 12/29/20 05:16 Clumped Platelets Not Reportable 12/29/20 05:16 Plt Clumps, EDTA Not Reportable 12/29/20 05:16 Large Platelets Not Reportable 12/29/20 05:16 Giant Platelets Not Reportable 12/29/20 05:16 Platelet Satelliting Not Reportable 12/29/20 05:16 Plt Morphology Comment Not Reportable 12/29/20 05:16 RBC Morphology Not Reportable 12/29/20 05:16 Dimorphic RBCs Not Reportable 12/29/20 05:16 Polychromasia Not Reportable 12/29/20 05:16 Hypochromasia Not Reportable 12/29/20 05:16 Poikilocytosis Not Reportable 12/29/20 05:16 Anisocytosis 1+ 12/29/20 05:16 Microcytosis Not Reportable 12/29/20 05:16 Macrocytosis Not Reportable 12/29/20 05:16 Spherocytes Not Reportable 12/29/20 05:16 Pappenheimer Bodies Not Reportable 12/29/20 05:16 Sickle Cells Not Reportable 12/29/20 05:16 Target Cells Not Reportable 12/29/20 05:16 Tear Drop Cells Not Reportable 12/29/20 05:16 Ovalocytes Not Reportable 12/29/20 05:16 Helmet Cells Not Reportable 12/29/20 05:16 [place] Bodies Not Reportable 12/29/20 05:16 Botkins Rings Not Reportable 12/29/20 05:16 Jenny Cells Not Reportable 12/29/20 05:16 Bite Cells Not Reportable 12/29/20 05:16 Crenated Cell Not Reportable 12/29/20 05:16 Elliptocytes Not Reportable 12/29/20 05:16 Acanthocytes (Spur) Not Reportable 12/29/20 05:16 Rouleaux Not Reportable 12/29/20 05:16 Hemoglobin C Crystals Not Reportable 12/29/20 05:16 Schistocytes Not Reportable 12/29/20 05:16 Malaria parasites Not Reportable 12/29/20 05:16 Lucas Bodies Not Reportable 12/29/20 05:16 Hem Pathologist Commnt No 12/29/20 05:16 PT 13.8 Sec. (12.2-14.9) 12/22/20 14:38 INR 1.07 (0.87-1.13) 12/22/20 14:38 APTT 25.1 Sec. (24.2-36.6) 12/22/20 14:38 ABG pH 7.474 (7.320-7.450) H 12/28/20 Unknown POC ABG pCO2 32.7 mmHg (32.0-48.0) 12/28/20 Unknown ABG pCO2 32.7 mm Hg 12/28/20 03:09 POC ABG pO2 83.2 mmHg (83-108) 12/28/20 Unknown ABG pO2 83.2 mm Hg (80.0-90.0) 12/28/20 03:09 POC ABG HCO3 23.5 12/28/20 Unknown ABG HCO3 23.5 mmol/L (20.0-26.0) 12/28/20 03:09 ABG O2 Saturation 96.8 (0-100) 12/28/20 Unknown ABG O2 Content 9.5 (0.0-44) 12/27/20 03:40 POC ABG Base Excess 0.1 12/28/20 Unknown ABG Base Excess 0.1 mmol/L (-2.0-3.0) 12/28/20 03:09 ABG Hemoglobin 7.8 (12.0-17.5) L 12/28/20 Unknown ABG Oxyhemoglobin 93.6 (94-98) L 12/28/20 15:00 ABG Carboxyhemoglobin 1.2 % (0.0-5.0) 12/28/20 03:09 ABG Methemoglobin 0.3 (0.0-1.5) 12/28/20 15:00 ABG Sodium 133.2 mmol/L (136.0-145.0) L 12/28/20 Unknown ABG Potassium 3.7 mmol/L (3.40-4.50) 12/28/20 Unknown ABG Chloride 102.0 mmol/L (98-107) 12/28/20 Unknown ABG Glucose 139 mg/dL (65-95) H 12/28/20 Unknown Oxyhemoglobin 95.3 % (95.0-99.0) 12/28/20 03:09 Carboxyhemoglobin 1.0 (0.5-1.5) 12/28/20 15:00 FiO2 30 % 12/27/20 03:40 FiO2 % 30 12/28/20 Unknown Sodium 137 mmol/L (137-145) 12/29/20 05:16 Potassium 3.4 mmol/L (3.6-5.0) L 12/29/20 05:16 Chloride 96.6 mmol/L (98-107) L 12/29/20 05:16 Carbon Dioxide 27 mmol/L (22-30) 12/29/20 05:16 Anion Gap 17 mmol/L 12/29/20 05:16 BUN 59 mg/dL (9-20) H 12/29/20 05:16 Creatinine 8.3 mg/dL (0.8-1.3) H 12/29/20 05:16 Estimated GFR 8 ml/min 12/29/20 05:16 BUN/Creatinine Ratio 7 % 12/29/20 05:16 Glucose 127 mg/dL (75-100) H 12/29/20 05:16 POC Glucose 144 mg/dL (70-105) H 12/29/20 11:33 Lactic Acid 1.40 mmol/L (0.7-2.0) 12/24/20 15:06 Calcium 8.2 mg/dL (8.4-10.2) L 12/29/20 05:16 Phosphorus 3.20 mg/dL (2.5-4.5) 12/29/20 05:16 Magnesium 2.00 mg/dL (1.7-2.3) 12/29/20 05:16 Total Bilirubin 3.00 mg/dL (0.1-1.2) H 12/29/20 05:16 AST 88 units/L (5-40) H 12/29/20 05:16 ALT 26 units/L (7-56) 12/29/20 05:16 Alkaline Phosphatase 188 units/L (35-129) H 12/29/20 05:16 Ammonia 30.0 umol/L (25-60) 12/22/20 14:38 Troponin T 0.021 ng/mL (0.00-0.029) 12/22/20 14:38 Total Protein 5.1 g/dL (6.3-8.2) L 12/29/20 05:16 Albumin 2.8 g/dL (3.9-5) L 12/29/20 05:16 Albumin/Globulin Ratio 1.2 % 12/29/20 05:16 Lipase 41 units/L (13-60) 12/22/20 14:38 Procalcitonin > 200.00 ng/mL (<0.15) 12/24/20 15:06 TSH 1.470 mlU/mL (0.270-4.200) 12/28/20 19:44 Arterial Blood Glucose 139 mg/dL (65-95) H 12/28/20 Unknown Arterial Blood Ionized Calcium 4.3 mg/dL (4.6-5.3) L 12/28/20 Unknown Urine Color Yellow (Yellow) 12/22/20 18:53 Urine Turbidity Clear (Clear) 12/22/20 18:53 Urine pH 7.0 (5.0-7.0) 12/22/20 18:53 Ur Specific Comfrey 1.012 (1.003-1.030) 12/22/20 18:53 Urine Protein >500 mg/dL (Negative) 12/22/20 18:53 Urine Glucose (UA) Neg mg/dL (Negative) 12/22/20 18:53 Urine Ketones Neg mg/dL (Negative) 12/22/20 18:53 Urine Blood Neg (Negative) 12/22/20 18:53 Urine Nitrite Neg (Negative) 12/22/20 18:53 Urine Bilirubin Neg (Negative) 12/22/20 18:53 Urine Urobilinogen < 2.0 mg/dL (<2.0) 12/22/20 18:53 Ur Leukocyte Esterase Neg (Negative) 12/22/20 18:53 Urine WBC (Auto) < 1.0 /HPF (0.0-6.0) 12/22/20 18:53 Urine RBC (Auto) 1.0 /HPF (0.0-6.0) 12/22/20 18:53 Fluid Type Dialysate 12/22/20 Unknown Fluid Color Colorless 12/22/20 Unknown Fluid Appearance Cloudy 12/22/20 Unknown Fluid WBC 208 /mm3 12/22/20 Unknown Fluid RBC 45 /mm3 12/22/20 Unknown Fluid Seg Neutrophils 82.0 % 12/22/20 Unknown Fluid Lymphocytes 11.0 % 12/22/20 Unknown Fluid Reactive Lymphs 0 % 12/22/20 Unknown Fluid Monocytes 7.0 % 12/22/20 Unknown Fluid Eosinophils 0 % 12/22/20 Unknown Fluid Basophils 0 % 12/22/20 Unknown Random Vancomycin 13.7 ug/mL (0-40.0) 12/26/20 Unknown Hepatitis A IgM Ab Non-reactive (NonReactive) 12/23/20 11:38 Hep Bs Antigen Non-reactive (Negative) 12/23/20 11:38 Hep B Core IgM Ab Non-reactive (NonReactive) 12/23/20 11:38 Hepatitis C Antibody Non-reactive (NonReactive) 12/23/20 11:38 Blood Type A POSITIVE 12/23/20 11:40 Antibody Screen Negative 12/23/20 11:40 Crossmatch See Detail 12/23/20 11:40 Microbiology: Microbiology 12/22/20 Unknown Peritioneal Dialysate Peritoneal Dialysate Culture - Final 12/24/20 23:11 Peripheral/Venous Blood Culture - Preliminary NO GROWTH AFTER 4 DAYS 12/24/20 23:11 Peripheral/Venous Blood Culture - Preliminary NO GROWTH AFTER 4 DAYS Jeffery/IV: Voiding Method Incontinent Active Medications - Current Medications Current Medications: Generic Name Dose Route Start Last Admin Trade Name Freq PRN Reason Stop Dose Admin Albuterol 2.5 mg 12/22/20 19:42 Albuterol 2.5 Mg/3 Ml Nebu IH Q4HRT PRN Shortness Of Breath Famotidine 10 mg 12/24/20 13:00 12/29/20 09:27 Famotidine 20 Mg/2 Ml Inj IV 10 mg BID THOMAS Administration Fentanyl 50 mcg 12/24/20 11:35 Fentanyl 100 Mcg/2 Ml Inj IV Q10MIN PRN ANALGESIA Fentanyl 25 mcg 12/27/20 11:49 12/29/20 05:33 Fentanyl 100 Mcg/2 Ml Inj IV 25 mcg Q2H PRN Administration Pain , Severe (7-10) Haloperidol Lactate 5 mg 12/29/20 14:16 Haloperidol Lactate 5 Mg/1 Ml Inj IV Q12H PRN Agitation Heparin Sodium (Porcine) 5,000 unit 12/24/20 10:00 12/29/20 09:28 Heparin 5,000 Unit/1 Ml Vial SUB-Q 5,000 unit Q12HR THOMAS Administration Hydrophilic Ointment 1 applic 12/24/20 12:03 Lip Therapy Vaseline TP Q2H PRN Dry Lips Sodium Chloride 100 mls @ 999 mls/hr 12/23/20 11:03 Nacl 0.9% IV RYLAND PRN Hypotension Propofol 1,000 mg in 100 mls @ 5.484 mls/hr 12/23/20 19:00 12/24/20 18:54 Diprivan 10 Mg/Ml IV 0 mcg/kg/min TITR THOMAS 0 mls/hr Titration Protocol 10 MCG/KG/MIN Fluconazole 200 mg in 100 mls @ 100 mls/hr 12/27/20 13:00 12/29/20 12:48 Diflucan IV 100 mls/hr Q24H THOMAS Administration Protocol Amino Acids/Electrolytes/Dextrose 2,016 mls @ 84 mls/hr 12/28/20 20:00 12/28/20 21:37 Tpn Adult IV 12/29/20 19:59 84 mls/hr DAILY@1999 THOMAS Administration Protocol Ampicillin Sodium/Sulbactam Sodium 1.5 gm in 50 mls @ 100 mls/hr 12/28/20 14:00 12/29/20 14:04 Unasyn/Ns 1.5 Gm/50 Ml IV 100 mls/hr Q8H THOMAS Administration Protocol Amiodarone HCl 900 mg/ 500 mls @ 33.333 mls/hr 12/28/20 17:00 12/28/20 17:03 Dextrose IV 1 mg/min DIRECT THOMAS 33.333 mls/hr Administration Protocol 1 MG/MIN Amino Acids/Electrolytes/Dextrose 2,016 mls @ 84 mls/hr 12/29/20 20:00 Tpn Adult IV 12/30/20 19:59 DAILY@1999 [facility] Protocol Metoprolol Tartrate 5 mg 12/29/20 15:00 12/29/20 16:16 Metoprolol Tartrate 5 Mg/5 Ml Inj IV 5 mg BID THOMAS Administration Morphine Sulfate 2 mg 12/23/20 10:00 12/27/20 01:36 Morphine 2 Mg/1 Ml Inj IV 2 mg Q4H PRN Administration Pain, Moderate (4-6) Multi-Ingred Cream/Lotion/Oil/Oint 1 applic 12/24/20 12:03 Mineral Oil/Petrolatum, White Ophth Oint 3.5 Gm OU Q4H PRN Dry Eye(s) Ondansetron HCl 4 mg 12/22/20 19:42 Ondansetron 4 Mg/2 Ml Inj IV Q8H PRN Nausea And Vomiting Scopolamine 1 each 12/28/20 16:00 12/28/20 15:41 Scopolamine Transdermal Patch 72 Hr TD 1 each Q72H THOMAS Administration Sodium Chloride 10 ml 12/22/20 22:00 12/29/20 09:28 Sodium Chloride 0.9% 10 Ml Flush Syringe IV 10 ml BID THOMAS Administration Sodium Chloride 10 ml 12/22/20 19:42 Sodium Chloride 0.9% 10 Ml Flush Syringe IV PRN PRN LINE FLUSH Nutrition/Malnutrition Assess - Dietary Evaluation Nutrition/Malnutrition Findings: Nutrition Notes Start: 12/24/20 12:36 Freq: Status: Active Protocol: Document 12/29/20 09:30 EN (Rec: 12/29/20 09:40 EN [id number]) Co-Sign 12/29/20 09:30 LP Nutrition Notes Initial or Follow up Reassessment Current Diagnosis CKD (stage V CKD),Sepsis, Hypertension,Heart Failure Other Pertinent Diagnosis bacterial peritonitis, on HD MWF/PRN, SBO, Crohns disease, Anemia Current Diet TPN at 84 ml/hr Labs/Tests BUN 59 Cr 8.3 K+ 3.4 Cl 96.6 Ca 8.2 Bilirubin 3.0 Pertinent Medications Fentanyl Heparin Height 5 ft 7 in Weight 94.5 kg [place] Body Weight (kg) 67.27 BMI 32.6 Weight Status Obese Subjective/Other Information F/u for updated labs. CPN day 4. Pt remains NPO. Pt extubated yesterday. Pt continues with post-op ileus. Percent of energy/protein needs met: 50%/82% Burn Absent Trauma Absent Difficulty In Swallowing Skin Integrity/Comment Intact Current % PO Negligible Minimum of two criteria No physical signs of malnutrition #1 Nutrition Diagnosis Inadequate oral intake As Evidenced by Signs and Symptoms Pt extubated, SBOs remain present causing inability to feed via PO or TF Diagnosis Progress(for reassessment Continues documentation) Is patient on ventilator? No Is Patient Ambulatory and/or Out of Bed No REE-([facility]-confined to bed) 2048.168 Kcal/Kg value to use for calculation 21 Approximate Energy Requirements Using 1985 kcal/Kg Calculation Used for Recommendations Kcal/kg Additional Notes Protein needs: >97g (>1.2g/kg AdjBW) fluid needs: 1 mL/kcal or per MD Nutrition Intervention Change Diet Order: Continue TPN Nutrition Support: TPN at 84ml/hr regimen: This provides 1155mOsm AA 5% K+ 60mEq Cl/CO2 100:0 Kcal 1,080 Protein (gm) 100 Carbohydrates (gm) 200 Fat (gm) 0 Fluid (mL) 2,016 Goal #1 Meet kcal and protein needs as best as possible Anticipated Discharge Needs: unable to determine at this time Follow-Up By: 12/30/20 Additional Comments Labs in AM, BMP and Triglycerides
[2020-12-29] MEDS: AMIODARONE 900 MG in DEXTROSE 5% IN WATER 482 ML IV SCH (17:24)
[2020-12-29] MEDS ORDERED: TOTAL PARENTERAL NUTRITION 2,016 ML IV SCH (20:00)
--- NOTE | 2020-12-29 21:30 | Progress Note ---
Assessment and Plan POD#6 s/p ex lap with extensive lysis of adhesions and two small bowel resections with primary anastamosis for SBO with necrotic segement small bowel. Afebrile and stable s/p extubation. - expect prolonged post op ileus, if NGT output is low overnight may try clamping trial again tomorrow. - ESRD -DD dialysis per nephrology - continue abx Subjective Date of service: 12/29/20 Narrative: pt was extubated in the last 24 hours. He says he has some abdominal pain but it is slightly better than yesterday. He says he has passed some flatus. Objective Vital Signs - 12hr 12/29/20 12/29/20 12/29/20 09:30 10:01 10:30 Temperature Pulse Rate 105 H 97 H 110 H Pulse Rate [ From Monitor] Respiratory 18 21 23 Rate Blood Pressure 146/90 142/87 143/87 O2 Sat by Pulse 93 Oximetry 12/29/20 12/29/20 12/29/20 11:01 11:30 12:00 Temperature 98.7 F Pulse Rate 104 H 95 H 96 H Pulse Rate [ 110 H From Monitor] Respiratory 31 H 22 21 Rate Blood Pressure 149/83 146/87 139/85 O2 Sat by Pulse 86 92 100 Oximetry 12/29/20 12/29/20 12/29/20 12:31 13:01 13:31 Temperature Pulse Rate 108 H 107 H 106 H Pulse Rate [ From Monitor] Respiratory 21 31 H 21 Rate Blood Pressure 148/88 144/90 149/90 O2 Sat by Pulse 96 97 Oximetry 12/29/20 12/29/20 12/29/20 14:00 14:30 15:01 Temperature Pulse Rate 134 H 100 H 145 H Pulse Rate [ From Monitor] Respiratory 31 H 21 33 H Rate Blood Pressure 139/85 136/87 140/80 O2 Sat by Pulse 95 94 Oximetry 12/29/20 12/29/20 12/29/20 15:31 16:00 16:01 Temperature 99.1 F Pulse Rate 97 H 90 116 H Pulse Rate [ 100 H From Monitor] Respiratory 20 20 25 H Rate Blood Pressure 152/86 144/86 O2 Sat by Pulse 91 96 91 Oximetry 12/29/20 12/29/20 12/29/20 16:16 16:30 17:00 Temperature Pulse Rate 104 H 97 H 97 H Pulse Rate [ From Monitor] Respiratory 25 H 22 Rate Blood Pressure 142/85 129/93 132/92 O2 Sat by Pulse 90 93 Oximetry 12/29/20 12/29/20 12/29/20 17:14 17:31 18:01 Temperature Pulse Rate 107 H 109 H Pulse Rate [ From Monitor] Respiratory 25 H 21 Rate Blood Pressure 139/91 139/86 O2 Sat by Pulse 96 90 93 Oximetry 12/29/20 12/29/20 20:00 21:10 Temperature 100.1 F H Pulse Rate Pulse Rate [ From Monitor] Respiratory Rate Blood Pressure O2 Sat by Pulse 96 Oximetry - General physical appearance well developed, no distress, no pain, chronically ill - Respiratory normal expansion, normal respiratory effort - Abdomen soft, distended, not rebound, not guarding, not rigid, other (staple line c/d/i, 150cc drainage from NGT during day shift. drainage in canister is light biliouis) - Labs 12/29/20 05:16 12/29/20 05:16 Diabetes panel 12/29/20 Range/Units 05:16 Sodium 137 (137-145) mmol/L Potassium 3.4 L (3.6-5.0) mmol/L Chloride 96.6 L (98-107) mmol/L Carbon Dioxide 27 (22-30) mmol/L BUN 59 H (9-20) mg/dL Creatinine 8.3 H (0.8-1.3) mg/dL Glucose 127 H (75-100) mg/dL Calcium 8.2 L (8.4-10.2) mg/dL AST 88 H (5-40) units/L ALT 26 (7-56) units/L Alkaline Phosphatase 188 H (35-129) units/L Total Protein 5.1 L (6.3-8.2) g/dL Albumin 2.8 L (3.9-5) g/dL Calcium panel 12/29/20 Range/Units 05:16 Calcium 8.2 L (8.4-10.2) mg/dL Phosphorus 3.20 (2.5-4.5) mg/dL Albumin 2.8 L (3.9-5) g/dL Pituitary panel 12/29/20 Range/Units 05:16 Sodium 137 (137-145) mmol/L Potassium 3.4 L (3.6-5.0) mmol/L Chloride 96.6 L (98-107) mmol/L Carbon Dioxide 27 (22-30) mmol/L BUN 59 H (9-20) mg/dL Creatinine 8.3 H (0.8-1.3) mg/dL Glucose 127 H (75-100) mg/dL Calcium 8.2 L (8.4-10.2) mg/dL Adrenal panel 12/29/20 Range/Units 05:16 Sodium 137 (137-145) mmol/L Potassium 3.4 L (3.6-5.0) mmol/L Chloride 96.6 L (98-107) mmol/L Carbon Dioxide 27 (22-30) mmol/L BUN 59 H (9-20) mg/dL Creatinine 8.3 H (0.8-1.3) mg/dL Glucose 127 H (75-100) mg/dL Calcium 8.2 L (8.4-10.2) mg/dL Total Bilirubin 3.00 H (0.1-1.2) mg/dL AST 88 H (5-40) units/L ALT 26 (7-56) units/L Alkaline Phosphatase 188 H (35-129) units/L Total Protein 5.1 L (6.3-8.2) g/dL Albumin 2.8 L (3.9-5) g/dL
[2020-12-30] MEDS: fentaNYL 100 MCG/2 ML INJ IV PRN ×2 (04:19→22:33)
[2020-12-30 09:25] LABS: Hematocrit 23.7 % (35.5-45.6); Hemoglobin 7.8 gm/dl (11.8-15.2); Mean Corpuscular HGB Conc 33 % (32-34); Mean Corpuscular Volume 91 fl (84-94); Platelet Count 163 K/mm3 (140-440); Red Blood Count 2.61 M/mm3 (3.65-5.03); Red Cell Distribution Width 17.3 % (13.2-15.2)
[2020-12-30 09:35] LABS: Albumin 2.6 g/dL (3.9-5); Calcium 8.3 mg/dL (8.4-10.2)
--- NOTE | 2020-12-30 09:42 | Progress Note ---
Assessment and Plan Assessment: - ESRD on peritoneal dialysis. He has been on peritoneal dialysis for the past 2 years. No history of peritonitis. - Abdominal pain. CT scan without organ perforation. Likely peritonitis related complications - small bowel obstruction s/p exp, necrotic bowel - Hypertension - Hyperkalemia - Anemia of ESRD - Hyperglycemia - severe sepsis - gram positive cocci bacteremia - Postoperative ileus - respiratory failure on vent, now extubated - a-fib, new onset Plan: - transitioned to HD, continue HD MWF or prn, due today - appreciate vascular for permacath placement [facility] on 12/27; pulm removed RIJ vascath 12/28 - continue IV empiric abx per ID - s/p ex lap, now off PD, will not be able to continue pd with adhesion and sbo s/p resection - uf as tolerated with HD - will need outpatient hd placement - stopped binders and sensipar - strict i/os - keep MAP >65 - continue albumin IV - monitor electrolytes daily - appreciate multidisplinary approach to care from surgery, ID, pulm input - a-fib management per cardiology Subjective Date of service: 12/30/20 Principal diagnosis: Ac hypoxemic resp failure; Severe Sepsis; Peritonitis; Acute SBO; ESRD; CHF Interval history: Transferred to [facility], on [place] this AM, resting in bed Objective - Exam Narrative Exam: - General Limitations: Physical Limitation General appearance: alert, on NC - Head Head exam: Present: atraumatic, normocephalic - Eye Eye exam: Present: normal appearance, EOMI - ENT ENT exam: Present: ET tube - Neck Neck exam: Present: normal inspection - Respiratory Respiratory exam: coarse lung sounds - Cardiovascular Cardiovascular Exam: Present: normal rhythm, tachycardia - GI/Abdominal GI/Abdominal exam: Present: soft, distended (slightly), tenderness (periumbilical ) - Extremities Exam Extremities exam: Present: normal inspection; LIJ CVC noted - Neurological Exam Neurological exam: alert but sedated - Psychiatric Psychiatric exam: opens eyes - Skin Skin exam: Present: warm, dry, intact, normal color - Vital Signs Vital signs: Vital Signs - 12hr 12/29/20 12/29/20 12/29/20 22:01 22:30 23:00 Temperature Pulse Rate 88 84 83 Pulse Rate [ From Monitor] Respiratory 31 H 21 23 Rate Blood Pressure 140/87 154/88 162/90 O2 Sat by Pulse 94 94 Oximetry 12/29/20 12/29/20 12/30/20 23:30 23:43 00:00 Temperature 100.3 F H Pulse Rate 84 86 Pulse Rate [ From Monitor] Respiratory 19 22 Rate Blood Pressure 149/91 153/89 O2 Sat by Pulse 94 92 Oximetry 12/30/20 12/30/20 12/30/20 00:30 01:00 01:30 Temperature Pulse Rate 89 90 87 Pulse Rate [ From Monitor] Respiratory 24 23 21 Rate Blood Pressure 168/86 165/89 161/89 O2 Sat by Pulse 84 98 Oximetry 12/30/20 12/30/20 12/30/20 02:00 02:30 03:00 Temperature Pulse Rate 89 90 87 Pulse Rate [ From Monitor] Respiratory 20 21 21 Rate Blood Pressure 165/89 O2 Sat by Pulse 97 98 99 Oximetry 12/30/20 12/30/20 12/30/20 03:30 03:46 04:00 Temperature 100 F H Pulse Rate 103 H 88 Pulse Rate [ 101 H From Monitor] Respiratory 32 H 22 Rate Blood Pressure 165/89 165/89 O2 Sat by Pulse 96 99 Oximetry 12/30/20 12/30/20 12/30/20 04:19 04:30 05:00 Temperature Pulse Rate 83 88 Pulse Rate [ From Monitor] Respiratory 22 18 22 Rate Blood Pressure 158/88 159/91 O2 Sat by Pulse 100 Oximetry 12/30/20 12/30/20 12/30/20 05:30 06:00 06:30 Temperature Pulse Rate 86 86 93 H Pulse Rate [ From Monitor] Respiratory 20 20 24 Rate Blood Pressure 158/88 158/88 158/88 O2 Sat by Pulse 100 Oximetry 12/30/20 12/30/20 12/30/20 07:00 07:30 08:28 Temperature Pulse Rate 91 H 87 Pulse Rate [ From Monitor] Respiratory 24 20 20 Rate Blood Pressure 160/94 160/94 160/94 O2 Sat by Pulse 100 Oximetry 12/30/20 12/30/20 12/30/20 08:30 09:00 09:30 Temperature Pulse Rate 91 H 91 H 89 Pulse Rate [ From Monitor] Respiratory 25 H 24 22 Rate Blood Pressure 160/92 161/92 161/92 O2 Sat by Pulse 100 94 Oximetry - Lab 12/30/20 09:00 12/30/20 09:00 Most recent lab results ABG pH 7.474 (7.320-7.450) H 12/28/20 Unknown ABG pCO2 32.7 mm Hg 12/28/20 03:09 ABG pO2 83.2 mm Hg (80.0-90.0) 12/28/20 03:09 ABG HCO3 23.5 mmol/L (20.0-26.0) 12/28/20 03:09 ABG O2 Saturation 96.8 (0-100) 12/28/20 Unknown Calcium 8.3 mg/dL (8.4-10.2) L 12/30/20 09:00 Phosphorus 3.20 mg/dL (2.5-4.5) 12/29/20 05:16 Magnesium 2.00 mg/dL (1.7-2.3) 12/29/20 05:16 Medications & Allergies - Medications Allergies/Adverse Reactions: Allergies No Known Allergies Allergy (Verified 06/09/20 15:27) Home Medications: Home Medications Medication Instructions Recorded Confirmed Last Taken Type Albuterol Mdi (or & Nicu Only) 2 puff IH QID PRN #1 inhalation 04/01/17 11/01/20 10/31/20 09:00 Rx [ProAir HFA Inhaler] Calcium Acetate 667 mg PO DAILY 04/20/20 11/01/20 10/31/20 09:00 History Centrum Men's Tablet 1 tab PO DAILY 04/20/20 11/01/20 10/31/20 09:00 History Cinacalcet 30 mg PO DAILY 04/20/20 11/01/20 10/31/20 09:00 History Dialyvite with Zinc Tablet 1 tab PO DAILY 04/20/20 11/01/20 10/31/20 09:00 History Magnesium 250 mg PO BID 04/20/20 11/01/20 10/31/20 17:00 History Triamcinolone 0.1% 1 1000units TRANSDERMA DAILY 04/20/20 11/01/20 10/31/20 09:00 History Vit B12/Folic Acid/B6/Aa No.15 1,000 mg PO DAILY 04/20/20 11/01/20 10/31/20 09:00 History amLODIPine 10 mg PO DAILY 06/09/20 11/01/20 10/31/20 09:00 History AtorvaSTATin 40 mg PO HS 11/01/20 11/01/20 10/31/20 21:00 History Benadryl 25 mg PO HS 11/01/20 11/01/20 10/31/20 21:00 History Diclofenac 1 TRANSDERMA QID 11/01/20 10/31/20 19:00 History Fluticasone Propionate 1 spray INTRANASAL DAILY 11/01/20 11/01/20 10/31/20 09:00 History Vitamin D3 2,000 units 11/01/20 10/31/20 09:00 History carvediloL 12.5 mg PO DAILY 11/01/20 11/01/20 10/31/20 09:00 History hydrALAZINE 100 mg PO TID 11/01/20 11/01/20 10/31/20 19:00 History Active Medications: Generic Name Dose Route Start Last Admin Trade Name Freq PRN Reason Stop Dose Admin Albuterol 2.5 mg 12/22/20 19:42 Albuterol 2.5 Mg/3 Ml Nebu IH Q4HRT PRN Shortness Of Breath Famotidine 10 mg 12/24/20 13:00 12/29/20 21:37 Famotidine 20 Mg/2 Ml Inj IV 10 mg BID THOMAS Administration Fentanyl 50 mcg 12/24/20 11:35 Fentanyl 100 Mcg/2 Ml Inj IV Q10MIN PRN ANALGESIA Fentanyl 25 mcg 12/27/20 11:49 12/30/20 04:19 Fentanyl 100 Mcg/2 Ml Inj IV 25 mcg Q2H PRN Administration Pain , Severe (7-10) Haloperidol Lactate 5 mg 12/29/20 14:16 Haloperidol Lactate 5 Mg/1 Ml Inj IV Q12H PRN Agitation Heparin Sodium (Porcine) 5,000 unit 12/24/20 10:00 12/29/20 21:38 Heparin 5,000 Unit/1 Ml Vial SUB-Q 5,000 unit Q12HR THOMAS Administration Hydrophilic Ointment 1 applic 12/24/20 12:03 Lip Therapy Vaseline TP Q2H PRN Dry Lips Sodium Chloride 100 mls @ 999 mls/hr 12/23/20 11:03 Nacl 0.9% IV RYLAND PRN Hypotension Propofol 1,000 mg in 100 mls @ 5.484 mls/hr 12/23/20 19:00 12/24/20 18:54 Diprivan 10 Mg/Ml IV 0 mcg/kg/min TITR THOMAS 0 mls/hr Titration Protocol 10 MCG/KG/MIN Fluconazole 200 mg in 100 mls @ 100 mls/hr 12/27/20 13:00 12/29/20 12:48 Diflucan IV 100 mls/hr Q24H THOMAS Administration Protocol Ampicillin Sodium/Sulbactam Sodium 1.5 gm in 50 mls @ 100 mls/hr 12/28/20 14:00 12/29/20 21:38 Unasyn/Ns 1.5 Gm/50 Ml IV 100 mls/hr Q8H THOMAS Administration Protocol Amiodarone HCl 900 mg/ 500 mls @ 33.333 mls/hr 12/28/20 17:00 12/29/20 17:24 Dextrose IV 1 mg/min DIRECT THOMAS 33.333 mls/hr Administration Protocol 1 MG/MIN Amino Acids/Electrolytes/Dextrose 2,016 mls @ 84 mls/hr 12/29/20 20:00 12/29/20 21:41 Tpn Adult IV 12/30/20 19:59 84 mls/hr DAILY@2000 THOMAS Administration Protocol Metoprolol Tartrate 5 mg 12/29/20 15:00 12/29/20 21:40 Metoprolol Tartrate 5 Mg/5 Ml Inj IV 5 mg BID THOMAS Administration Morphine Sulfate 2 mg 12/23/20 10:00 12/27/20 01:36 Morphine 2 Mg/1 Ml Inj IV 2 mg Q4H PRN Administration Pain, Moderate (4-6) Multi-Ingred Cream/Lotion/Oil/Oint 1 applic 12/24/20 12:03 Mineral Oil/Petrolatum, White Ophth Oint 3.5 Gm OU Q4H PRN Dry Eye(s) Ondansetron HCl 4 mg 12/22/20 19:42 Ondansetron 4 Mg/2 Ml Inj IV Q8H PRN Nausea And Vomiting Scopolamine 1 each 12/28/20 16:00 12/28/20 15:41 Scopolamine Transdermal Patch 72 Hr TD 1 each Q72H THOMAS Administration Sodium Chloride 10 ml 12/22/20 22:00 12/29/20 21:42 Sodium Chloride 0.9% 10 Ml Flush Syringe IV 10 ml BID THOMAS Administration Sodium Chloride 10 ml 12/22/20 19:42 Sodium Chloride 0.9% 10 Ml Flush Syringe IV PRN PRN LINE FLUSH
[2020-12-30] MEDS: MORPHINE 2 MG/1 ML INJ IV PRN ×4 (10:00→21:30)
[2020-12-30] MEDS: FAMOTIDINE 20 MG/2 ML INJ IV SCH ×2 (10:31→21:32)
[2020-12-30] MEDS: METOPROLOL TARTRATE 5 MG/5 ML INJ IV SCH ×5 (10:31→21:38)
[2020-12-30] MEDS: HALOPERIDOL LACTATE 5 MG/1 ML INJ IV PRN (10:41)
--- NOTE | 2020-12-30 11:14 | Progress Note ---
Assessment and Plan Acute hypoxemic respiratory failure, on mechanical ventilatory support. Severe Sepsis Peritonitis Acute small-bowel obstruction with tissue necrosis. End-stage renal disease, on dialysis. Hypertension. Crohn's disease. Gastroesophageal reflux disease. Heart failure with reduced ejection fraction. Hyperkalemia. Anemia that is normocytic. Lactic acidosis. Oropharyngeal dysphagia - NGT placed at bedside - prn BIPAP for increased WOB. - continue TPN till cleared for enteral intake - continue care as below otherwise; - continue to wean supplemental oxygen for target O2 sat's > 92% acutely - continue aspiration precautions - continue bronchodilators with pulmonary hygiene per RT - HD/UF per nephrology prescription for toxin and volume control - avoid nephrotoxins, renally dose all medications - continue accuchecks with glycemic control per SSI for target blood glucose of < 180 mg/dL; avoid hypoglycemia - sedation prn for target RASS 0 to -1 - continue to avoid benzodiazepine's, reduce the possibility of delirium - complete AB's per ID rec's - prn analgesia per CPOT score - Maintenance of sleep-wake cycle, avoid delirium - enteral nutritional support at goal rate as tolerated (once cleared by surgeon) - G.I. & VTE prophylaxis - PT/OT/ROM exercises - continue mobility protocols for pressure ulcer prophylaxis - Monitor hemodynamics closely - continue other care per attending / other consultants - discharge planning ongoing concurrently .... Re-evaluate in am & prn CONDITION: FAIR PROGNOSIS: GUARDED CODE STATUS: FULL CODE I have spent ( >35 ) minutes with the patient w/ >50% of the time spent counseling and/or coordinating care for this patient. Counseling topics and/or how time was spent coordinating patient's care is outlined in the impression and plan above. Subjective Date of service: 12/30/20 Principal diagnosis: Ac hypoxemic resp failure; Severe Sepsis; Peritonitis; Acute SBO; ESRD; CHF Interval history: Patient is seen today for: Ac hypoxemic resp failure; Severe Sepsis; Peritonitis; Acute SBO; ESRD on Dialysis; HTN; Crohn's disease; HFrEF Seen and examined at bedside; 24hour events reviewed; nursing and respiratory care staff consulted; no adverse overnight events reported to me; resting in bed; still with a bit of delirium today; pulled out NGT; no emesis or overt aspiration; abdomen distended but without increased tenderness; no high grade fevers Objective Vital Signs - 12hr 12/29/20 12/29/20 12/30/20 23:30 23:43 00:00 Temperature 100.3 F H Pulse Rate 84 86 Pulse Rate [ From Monitor] Respiratory 19 22 Rate Blood Pressure 149/91 153/89 O2 Sat by Pulse 94 92 Oximetry 12/30/20 12/30/20 12/30/20 00:30 01:00 01:30 Temperature Pulse Rate 89 90 87 Pulse Rate [ From Monitor] Respiratory 24 23 21 Rate Blood Pressure 168/86 165/89 161/89 O2 Sat by Pulse 84 98 Oximetry 12/30/20 12/30/20 12/30/20 02:00 02:30 03:00 Temperature Pulse Rate 89 90 87 Pulse Rate [ From Monitor] Respiratory 20 21 21 Rate Blood Pressure 165/89 O2 Sat by Pulse 97 98 99 Oximetry 12/30/20 12/30/20 12/30/20 03:30 03:46 04:00 Temperature 100 F H Pulse Rate 103 H 88 Pulse Rate [ 101 H From Monitor] Respiratory 32 H 22 Rate Blood Pressure 165/89 165/89 O2 Sat by Pulse 96 99 Oximetry 12/30/20 12/30/20 12/30/20 04:19 04:30 05:00 Temperature Pulse Rate 83 88 Pulse Rate [ From Monitor] Respiratory 22 18 22 Rate Blood Pressure 158/88 159/91 O2 Sat by Pulse 100 Oximetry 12/30/20 12/30/20 12/30/20 05:30 06:00 06:30 Temperature Pulse Rate 86 86 93 H Pulse Rate [ From Monitor] Respiratory 20 20 24 Rate Blood Pressure 158/88 158/88 158/88 O2 Sat by Pulse 100 Oximetry 12/30/20 12/30/20 12/30/20 07:00 07:30 08:28 Temperature Pulse Rate 91 H 87 Pulse Rate [ From Monitor] Respiratory 24 20 20 Rate Blood Pressure 160/94 160/94 160/94 O2 Sat by Pulse 100 Oximetry 12/30/20 12/30/20 12/30/20 08:30 09:00 09:30 Temperature Pulse Rate 91 H 91 H 89 Pulse Rate [ From Monitor] Respiratory 25 H 24 22 Rate Blood Pressure 160/92 161/92 161/92 O2 Sat by Pulse 100 94 Oximetry 12/30/20 12/30/20 12/30/20 09:48 10:05 10:10 Temperature 98.6 F Pulse Rate 87 90 Pulse Rate [ From Monitor] Respiratory 23 Rate Blood Pressure 161/90 151/88 O2 Sat by Pulse 94 Oximetry 12/30/20 12/30/20 12/30/20 10:15 10:30 10:45 Temperature Pulse Rate 92 H 97 H 83 Pulse Rate [ From Monitor] Respiratory Rate Blood Pressure 146/88 169/93 145/86 O2 Sat by Pulse Oximetry 12/30/20 11:00 Temperature Pulse Rate 84 Pulse Rate [ From Monitor] Respiratory Rate Blood Pressure 172/94 O2 Sat by Pulse Oximetry Constitutional: appears uncomfortable, other (elderly male with mildly increased respiratory effort at rest ) Eyes: non-icteric ENT: oropharynx moist, oropharyngeal exudate pre (small volume, clear), other (extubated) Neck: supple, no lymphadenopathy, no JVD Effort: mildly labored Ascultation: Bilateral: diminished breath sounds, rhonchi (scant) Percussion: Bilateral: not dull Cardiovascular: regular rate and rhythm Gastrointestinal: hypoactive bowel sounds, soft, tender (mild), non-distended (protuberant) Integumentary: other (popst surgical changes) Extremities: no cyanosis, no edema, pulses normal, no ischemia or petechiae Neurologic: non-focal exam (grossly), pupils equal and round, CN II-XII normal Psychiatric: other (delirious) CBC and BMP: 01/02/21 08:00 01/02/21 08:00 ABG, PT/INR, D-dimer: ABG ABG pH 7.474 (7.320-7.450) H 12/28/20 Unknown POC ABG pCO2 32.7 mmHg (32.0-48.0) 12/28/20 Unknown ABG pCO2 32.7 mm Hg 12/28/20 03:09 POC ABG pO2 83.2 mmHg (83-108) 12/28/20 Unknown ABG pO2 83.2 mm Hg (80.0-90.0) 12/28/20 03:09 POC ABG HCO3 23.5 12/28/20 Unknown ABG O2 Saturation 96.8 (0-100) 12/28/20 Unknown PT/INR, D-dimer PT 13.8 Sec. (12.2-14.9) 12/22/20 14:38 INR 1.07 (0.87-1.13) 12/22/20 14:38 Abnormal lab findings: Abnormal Labs 12/22/20 12/22/20 12/22/20 14:38 14:38 14:38 WBC RBC Hgb 11.2 L Hct 35.0 L RDW 16.7 H Plt Count Lymph % (Auto) [place] % (Auto) Lymph # (Auto) Seg Neutrophils % Seg Neuts % (Manual) 94.0 H Lymphocytes % (Manual) 5.0 L Seg Neutrophils # Man Lymphocytes # (Manual) 0.3 L ABG pH POC ABG pCO2 POC ABG pO2 ABG pO2 ABG HCO3 ABG O2 Saturation ABG Base Excess ABG Hemoglobin ABG Oxyhemoglobin ABG Sodium ABG Potassium ABG Chloride ABG Glucose Oxyhemoglobin Sodium Potassium Chloride Carbon Dioxide BUN 58 H Creatinine 13.2 H Glucose 113 H POC Glucose Lactic Acid 3.60 H* Calcium Phosphorus Magnesium Total Bilirubin 1.30 H AST ALT Alkaline Phosphatase 155 H Total Protein Albumin Triglycerides Arterial Blood Glucose Arterial Blood Ionized Calcium Crossmatch 12/22/20 12/22/20 12/23/20 16:26 17:47 05:22 WBC RBC Hgb Hct RDW Plt Count Lymph % (Auto) [place] % (Auto) Lymph # (Auto) Seg Neutrophils % Seg Neuts % (Manual) Lymphocytes % (Manual) Seg Neutrophils # Man Lymphocytes # (Manual) ABG pH POC ABG pCO2 POC ABG pO2 ABG pO2 ABG HCO3 ABG O2 Saturation ABG Base Excess ABG Hemoglobin ABG Oxyhemoglobin ABG Sodium ABG Potassium ABG Chloride ABG Glucose Oxyhemoglobin Sodium Potassium Chloride Carbon Dioxide BUN Creatinine Glucose POC Glucose Lactic Acid 2.80 H* 3.10 H* 2.30 H* Calcium Phosphorus Magnesium Total Bilirubin AST ALT Alkaline Phosphatase Total Protein Albumin Triglycerides Arterial Blood Glucose Arterial Blood Ionized Calcium Crossmatch 12/23/20 12/23/20 12/23/20 05:22 05:22 06:35 WBC 12.1 H RBC Hgb 11.0 L Hct 33.7 L RDW 16.9 H Plt Count Lymph % (Auto) [place] % (Auto) Lymph # (Auto) Seg Neutrophils % Seg Neuts % (Manual) 93.0 H Lymphocytes % (Manual) 1.0 L Seg Neutrophils # Man 11.3 H Lymphocytes # (Manual) 0.1 L ABG pH POC ABG pCO2 POC ABG pO2 ABG pO2 ABG HCO3 ABG O2 Saturation ABG Base Excess ABG Hemoglobin ABG Oxyhemoglobin ABG Sodium ABG Potassium ABG Chloride ABG Glucose Oxyhemoglobin Sodium Potassium 5.7 H D Chloride Carbon Dioxide BUN 73 H Creatinine 14.2 H Glucose POC Glucose Lactic Acid 2.30 H* Calcium 7.9 L Phosphorus Magnesium Total Bilirubin 1.40 H AST 119 H ALT 130 H Alkaline Phosphatase 183 H Total Protein 6.1 L Albumin 3.6 L Triglycerides Arterial Blood Glucose Arterial Blood Ionized Calcium Crossmatch 12/23/20 12/23/20 12/23/20 11:40 13:53 16:47 WBC RBC Hgb 10.0 L Hct 30.4 L RDW Plt Count Lymph % (Auto) [place] % (Auto) Lymph # (Auto) Seg Neutrophils % Seg Neuts % (Manual) Lymphocytes % (Manual) Seg Neutrophils # Man Lymphocytes # (Manual) ABG pH POC ABG pCO2 POC ABG pO2 137.5 H ABG pO2 ABG HCO3 ABG O2 Saturation ABG Base Excess ABG Hemoglobin 9.7 L ABG Oxyhemoglobin ABG Sodium 134.1 L ABG Potassium 6.6 H ABG Chloride ABG Glucose 103 H Oxyhemoglobin Sodium Potassium Chloride Carbon Dioxide BUN Creatinine Glucose POC Glucose Lactic Acid Calcium Phosphorus Magnesium Total Bilirubin AST ALT Alkaline Phosphatase Total Protein Albumin Triglycerides Arterial Blood Glucose 103 H Arterial Blood Ionized Calcium 3.8 L Crossmatch See Detail 12/23/20 12/23/20 12/24/20 20:35 20:40 01:20 WBC RBC Hgb Hct RDW Plt Count Lymph % (Auto) [place] % (Auto) Lymph # (Auto) Seg Neutrophils % Seg Neuts % (Manual) Lymphocytes % (Manual) Seg Neutrophils # Man Lymphocytes # (Manual) ABG pH 7.252 L POC ABG pCO2 POC ABG pO2 ABG pO2 50.1 L ABG HCO3 ABG O2 Saturation 81.1 L ABG Base Excess -5.9 L ABG Hemoglobin 12.1 L ABG Oxyhemoglobin ABG Sodium ABG Potassium ABG Chloride ABG Glucose Oxyhemoglobin 78.6 L Sodium 134 L Potassium 6.9 H* D 6.3 H* Chloride Carbon Dioxide 18 L 20 L BUN 87 H 91 H Creatinine 15.3 H 15.3 H Glucose 103 H POC Glucose Lactic Acid Calcium 6.9 L 7.5 L Phosphorus Magnesium Total Bilirubin AST ALT Alkaline Phosphatase Total Protein Albumin Triglycerides Arterial Blood Glucose Arterial Blood Ionized Calcium Crossmatch 12/24/20 12/24/20 12/24/20 04:00 10:29 10:29 WBC RBC 3.49 L Hgb 10.5 L Hct 31.2 L RDW 17.5 H Plt Count 124 L Lymph % (Auto) 3.7 L [place] % (Auto) 9.8 H Lymph # (Auto) 0.2 L Seg Neutrophils % 85.9 H Seg Neuts % (Manual) Lymphocytes % (Manual) Seg Neutrophils # Man Lymphocytes # (Manual) ABG pH POC ABG pCO2 28.1 L POC ABG pO2 ABG pO2 ABG HCO3 ABG O2 Saturation ABG Base Excess ABG Hemoglobin ABG Oxyhemoglobin ABG Sodium 133.9 L ABG Potassium 5.3 H ABG Chloride 108.0 H ABG Glucose Oxyhemoglobin Sodium Potassium 5.6 H Chloride Carbon Dioxide 19 L BUN 99 H Creatinine 16.9 H Glucose 52 L POC Glucose Lactic Acid Calcium 7.6 L Phosphorus Magnesium Total Bilirubin 3.50 H AST 67 H ALT 71 H Alkaline Phosphatase Total Protein 3.5 L D Albumin 2.1 L Triglycerides Arterial Blood Glucose Arterial Blood Ionized Calcium 4.0 L Crossmatch 12/25/20 12/25/20 12/25/20 03:33 04:00 04:00 WBC 3.8 L RBC 2.90 L Hgb 8.6 L Hct 25.7 L RDW 16.7 H Plt Count 113 L Lymph % (Auto) [place] % (Auto) Lymph # (Auto) Seg Neutrophils % Seg Neuts % (Manual) Lymphocytes % (Manual) Seg Neutrophils # Man Lymphocytes # (Manual) ABG pH 7.544 H POC ABG pCO2 28.2 L POC ABG pO2 62.8 L ABG pO2 ABG HCO3 ABG O2 Saturation ABG Base Excess ABG Hemoglobin 9.3 L ABG Oxyhemoglobin 93.0 L ABG Sodium 130.3 L ABG Potassium ABG Chloride ABG Glucose 97 H Oxyhemoglobin Sodium Potassium Chloride Carbon Dioxide BUN 62 H Creatinine 11.4 H Glucose POC Glucose Lactic Acid Calcium 7.7 L Phosphorus 5.00 H Magnesium Total Bilirubin AST ALT Alkaline Phosphatase Total Protein Albumin Triglycerides Arterial Blood Glucose 97 H Arterial Blood Ionized Calcium 3.9 L Crossmatch 12/26/20 12/26/20 12/27/20 04:46 Unknown 03:40 WBC 4.1 L RBC 2.61 L Hgb 7.8 L Hct 23.4 L RDW 17.1 H Plt Count 119 L Lymph % (Auto) 5.3 L [place] % (Auto) 10.6 H Lymph # (Auto) 0.2 L Seg Neutrophils % 78.8 H Seg Neuts % (Manual) Lymphocytes % (Manual) Seg Neutrophils # Man Lymphocytes # (Manual) ABG pH 7.333 L 7.332 L POC ABG pCO2 POC ABG pO2 ABG pO2 ABG HCO3 26.9 H ABG O2 Saturation ABG Base Excess -2.4 L ABG Hemoglobin 6.8 L 7.2 L ABG Oxyhemoglobin ABG Sodium ABG Potassium ABG Chloride ABG Glucose Oxyhemoglobin 93.0 L 93.1 L Sodium Potassium Chloride Carbon Dioxide BUN Creatinine Glucose POC Glucose Lactic Acid Calcium Phosphorus Magnesium Total Bilirubin AST ALT Alkaline Phosphatase Total Protein Albumin Triglycerides Arterial Blood Glucose Arterial Blood Ionized Calcium Crossmatch 12/27/20 12/27/20 12/27/20 06:40 06:40 11:22 WBC 4.4 L RBC 2.49 L Hgb 7.4 L Hct 22.4 L RDW 17.1 H Plt Count 111 L Lymph % (Auto) 6.7 L [place] % (Auto) 12.6 H Lymph # (Auto) 0.3 L Seg Neutrophils % 77.6 H Seg Neuts % (Manual) Lymphocytes % (Manual) Seg Neutrophils # Man Lymphocytes # (Manual) ABG pH POC ABG pCO2 POC ABG pO2 ABG pO2 ABG HCO3 ABG O2 Saturation ABG Base Excess ABG Hemoglobin ABG Oxyhemoglobin ABG Sodium ABG Potassium ABG Chloride ABG Glucose Oxyhemoglobin Sodium Potassium Chloride Carbon Dioxide BUN 64 H Creatinine 9.8 H Glucose 147 H POC Glucose 134 H Lactic Acid Calcium 8.3 L Phosphorus 5.00 H Magnesium Total Bilirubin 3.70 H AST 72 H ALT Alkaline Phosphatase 142 H Total Protein 5.1 L D Albumin 2.9 L Triglycerides Arterial Blood Glucose Arterial Blood Ionized Calcium Crossmatch 12/27/20 12/27/20 12/28/20 17:29 23:31 03:09 WBC RBC Hgb Hct RDW Plt Count Lymph % (Auto) [place] % (Auto) Lymph # (Auto) Seg Neutrophils % Seg Neuts % (Manual) Lymphocytes % (Manual) Seg Neutrophils # Man Lymphocytes # (Manual) ABG pH 7.474 H POC ABG pCO2 POC ABG pO2 ABG pO2 ABG HCO3 ABG O2 Saturation ABG Base Excess ABG Hemoglobin 7.8 L ABG Oxyhemoglobin ABG Sodium ABG Potassium ABG Chloride ABG Glucose Oxyhemoglobin Sodium Potassium Chloride Carbon Dioxide BUN Creatinine Glucose POC Glucose 121 H 131 H Lactic Acid Calcium Phosphorus Magnesium Total Bilirubin AST ALT Alkaline Phosphatase Total Protein Albumin Triglycerides Arterial Blood Glucose Arterial Blood Ionized Calcium Crossmatch 12/28/20 12/28/20 12/28/20 05:37 05:40 05:40 WBC 4.3 L RBC 2.40 L Hgb 7.2 L Hct 21.5 L RDW 17.4 H Plt Count 112 L Lymph % (Auto) 6.5 L [place] % (Auto) 16.7 H Lymph # (Auto) 0.3 L Seg Neutrophils % 71.1 H Seg Neuts % (Manual) Lymphocytes % (Manual) Seg Neutrophils # Man Lymphocytes # (Manual) ABG pH POC ABG pCO2 POC ABG pO2 ABG pO2 ABG HCO3 ABG O2 Saturation ABG Base Excess ABG Hemoglobin ABG Oxyhemoglobin ABG Sodium ABG Potassium ABG Chloride ABG Glucose Oxyhemoglobin Sodium Potassium Chloride Carbon Dioxide BUN 85 H Creatinine 11.5 H Glucose 132 H POC Glucose 121 H Lactic Acid Calcium 8.2 L Phosphorus Magnesium 2.40 H Total Bilirubin 3.80 H AST 70 H ALT Alkaline Phosphatase 176 H Total Protein 5.0 L Albumin 2.9 L Triglycerides Arterial Blood Glucose Arterial Blood Ionized Calcium Crossmatch 12/28/20 12/28/20 12/28/20 11:34 15:00 17:35 WBC RBC Hgb Hct RDW Plt Count Lymph % (Auto) [place] % (Auto) Lymph # (Auto) Seg Neutrophils % Seg Neuts % (Manual) Lymphocytes % (Manual) Seg Neutrophils # Man Lymphocytes # (Manual) ABG pH 7.461 H POC ABG pCO2 POC ABG pO2 72.2 L ABG pO2 ABG HCO3 ABG O2 Saturation ABG Base Excess ABG Hemoglobin 8.2 L ABG Oxyhemoglobin 93.6 L ABG Sodium 134.1 L ABG Potassium 3.2 L ABG Chloride ABG Glucose 135 H Oxyhemoglobin Sodium Potassium Chloride Carbon Dioxide BUN Creatinine Glucose POC Glucose 137 H 144 H Lactic Acid Calcium Phosphorus Magnesium Total Bilirubin AST ALT Alkaline Phosphatase Total Protein Albumin Triglycerides Arterial Blood Glucose 135 H Arterial Blood Ionized Calcium 4.4 L Crossmatch 12/28/20 12/28/20 12/29/20 19:44 Unknown 00:21 WBC RBC Hgb Hct RDW Plt Count Lymph % (Auto) [place] % (Auto) Lymph # (Auto) Seg Neutrophils % Seg Neuts % (Manual) Lymphocytes % (Manual) Seg Neutrophils # Man Lymphocytes # (Manual) ABG pH 7.474 H POC ABG pCO2 POC ABG pO2 ABG pO2 ABG HCO3 ABG O2 Saturation ABG Base Excess ABG Hemoglobin 7.8 L ABG Oxyhemoglobin ABG Sodium 133.2 L ABG Potassium ABG Chloride ABG Glucose 139 H Oxyhemoglobin Sodium 135 L Potassium Chloride 96.6 L Carbon Dioxide BUN 47 H Creatinine 7.4 H Glucose 130 H POC Glucose 142 H Lactic Acid Calcium 8.3 L Phosphorus Magnesium Total Bilirubin AST ALT Alkaline Phosphatase Total Protein Albumin Triglycerides Arterial Blood Glucose 139 H Arterial Blood Ionized Calcium 4.3 L Crossmatch 12/29/20 12/29/20 12/29/20 05:16 05:16 05:26 WBC RBC 2.53 L Hgb 7.7 L Hct 22.8 L RDW 17.0 H Plt Count 130 L Lymph % (Auto) [place] % (Auto) Lymph # (Auto) Seg Neutrophils % Seg Neuts % (Manual) 79.0 H Lymphocytes % (Manual) 9.0 L Seg Neutrophils # Man Lymphocytes # (Manual) 0.6 L ABG pH POC ABG pCO2 POC ABG pO2 ABG pO2 ABG HCO3 ABG O2 Saturation ABG Base Excess ABG Hemoglobin ABG Oxyhemoglobin ABG Sodium ABG Potassium ABG Chloride ABG Glucose Oxyhemoglobin Sodium Potassium 3.4 L Chloride 96.6 L Carbon Dioxide BUN 59 H Creatinine 8.3 H Glucose 127 H POC Glucose 141 H Lactic Acid Calcium 8.2 L Phosphorus Magnesium Total Bilirubin 3.00 H AST 88 H ALT Alkaline Phosphatase 188 H Total Protein 5.1 L Albumin 2.8 L Triglycerides Arterial Blood Glucose Arterial Blood Ionized Calcium Crossmatch 12/29/20 12/29/20 12/29/20 11:33 17:29 23:22 WBC RBC Hgb Hct RDW Plt Count Lymph % (Auto) [place] % (Auto) Lymph # (Auto) Seg Neutrophils % Seg Neuts % (Manual) Lymphocytes % (Manual) Seg Neutrophils # Man Lymphocytes # (Manual) ABG pH POC ABG pCO2 POC ABG pO2 ABG pO2 ABG HCO3 ABG O2 Saturation ABG Base Excess ABG Hemoglobin ABG Oxyhemoglobin ABG Sodium ABG Potassium ABG Chloride ABG Glucose Oxyhemoglobin Sodium Potassium Chloride Carbon Dioxide BUN Creatinine Glucose POC Glucose 144 H 130 H 117 H Lactic Acid Calcium Phosphorus Magnesium Total Bilirubin AST ALT Alkaline Phosphatase Total Protein Albumin Triglycerides Arterial Blood Glucose Arterial Blood Ionized Calcium Crossmatch 12/30/20 12/30/20 12/30/20 05:23 09:00 09:00 WBC RBC 2.61 L Hgb 7.8 L Hct 23.7 L RDW 17.3 H Plt Count Lymph % (Auto) [place] % (Auto) Lymph # (Auto) Seg Neutrophils % Seg Neuts % (Manual) Lymphocytes % (Manual) Seg Neutrophils # Man Lymphocytes # (Manual) ABG pH POC ABG pCO2 POC ABG pO2 ABG pO2 ABG HCO3 ABG O2 Saturation ABG Base Excess ABG Hemoglobin ABG Oxyhemoglobin ABG Sodium ABG Potassium ABG Chloride ABG Glucose Oxyhemoglobin Sodium 135 L Potassium Chloride 95.9 L Carbon Dioxide BUN 85 H Creatinine 10.6 H Glucose 128 H POC Glucose 135 H Lactic Acid Calcium 8.3 L Phosphorus Magnesium Total Bilirubin 2.40 H AST 85 H ALT Alkaline Phosphatase 216 H Total Protein 5.3 L Albumin 2.6 L Triglycerides 155 H Arterial Blood Glucose Arterial Blood Ionized Calcium Crossmatch Allied health notes reviewed: nursing
--- NOTE | 2020-12-30 11:20 | Progress Note ---
Assessment and Plan Assessment and plan: This is a 60-year-old male with ESRD on peritoneal dialysis, Crohn's, hypertension, systolic CHF (EF 35%) who was admitted with sepsis, peritonitis, small bowel obstruction and now has gram-positive cocci bacteremia. Sepsis Streptococcus bovis bacteremia/Prevotella bacteremia Gwendolyn albicans tracheal aspirate Small bowel obstruction/necrotic bowel s/p ex lap with extensive lysis of adhesions, 2 small bowel resections with primary anastomosis Acute hypoxic respiratory failure Postoperative ileus Atrial fibrillation with RVR Gwendolyn albicans in tracheal aspirate from 12/24 ESRD on PD, PermCath to be placed Transaminitis Systolic CHF(EF 35%) Crohn's disease Hypertension Hypokalemia -[facility], surgery, infectious disease, nephrology, vascular surgery, cardiology consulted, appreciate recommendations -S/p ex lap with extensive expectations, 2 small bowel resections with primary anastomosis with surgery on 12/23 -s/p PICC and Permacath placement with vascular surgery on 12/27 -Extubated on 12/28 -Transitioned to HD from PD -HD per nephro -NPO -PPN -NGT to LIS -IV antibiotics -12/29 echocardiogram shows moderate concentric LVH, small pericardial effusion, transmitral Doppler flow pattern is grade 1 abnormal relaxation pattern, left- ventricular systolic function normal, LVEF 50 to 55%, no wall motion abnormalities. -Tobacco abuse cessation counseling -Trend CBC, BMP DVT/GI prophylaxis: PPI, heparin subcu, SCDs to bilateral lower extremities while in bed Disposition: ICU Critical care statement The high probability of a clinically significant, sudden or life threatening deterioration of the [pulmonary, cardiac, neuro, renal] system(s) required my full and direct attention, intervention and personal management. The aggregate critical care time was [35] minutes. This time is in addition to time spent performing reported procedures but includes the following: [x] Data Review and interpretation [x] Patient assessment and monitoring of vital signs [x] Documentation [x] Medication orders and management History Interval history: This is a 60 YO Male with ESRD on PD, GERD, Crohn's Disease, Nicotine Dependence, HTN, Systolic CHF(EF 35%) who presented to the emergency department on 12/22 with complaints of abdominal pain which began shortly after eating fast food rated 10/10 which is periumbilical, constant, associated with fever, nausea and multiple sites of vomiting and self-reported inability to undergo PD. In the emergency room patient underwent a CT scan of the abdomen/pelvis which revealed evidence of partial small bowel obstruction, symptoms were consistent with bacterial peritonitis. Patient was admitted to the hospital service with sepsis, peritonitis, and small bowel obstruction with consults to general surgery, nephrology, infectious disease and [facility]. 12/23. Patient had temperature 101.2 F, tachycardia and elevated lactic acid on admission. Meet sepsis criteria. Started on IV antibiotics. ID has been consulted. Surgery consulted this a.m.-advised laparoscopy. He remains on NG tube connected to suction. 12/24. Patient was noted to have peritonitis yesterday and patient undergoing exploratory laparotomy. Patient remained intubated after procedure and is in ICU. Now on broad-spectrum antibiotics. ID on board. 12/25. Remains mechanically ventilated and sedated. Temp 103 Fahrenheit. Antibiotics broadened-ID added fluconazole and Flagyl. Blood cultures ordered. Plan to repeat CT abdomen tomorrow if not better. Surgery following. 12/26: Patient remains on mechanical ventilation on CMV tidal line 550, rate of 14, PEEP of 8 and 30% FiO2 and sedated on fentanyl 4 micrograms. Today we will remove his Jeffery and [facility] dropped his rate controlled him on CPAP. We will trend CBC given recent drop in H/H. 12/27: Patient remains intubated on CMV tidal volume 550, rate 12, PEEP 8 on 30% FiO2 at the time my examination. Patient's TPN will be changed to PPN. Patient's fentanyl drip will be changed to IV push fentanyl and have a permacath placed today and midline. Patient was placed on a spontaneous breathing trial was switched back to CMV prior to procedure. 12/28: Patient on fentanyl but awake and follows commands. At the time of my examination he was on a CPAP trial and is scheduled to receive HD today. s/o permacath and PICC placement with vascular yesterday. His blood culture grew Prevotella and addition to Streptococcus bovis. This evening Dr. Spicer attempted to extubate the patient and his heart rate went to the 180s. Stat EKG obtained and cardiology consulted. 12/29: Patient was started on amiodarone IV for A. fib RVR yesterday and today he is more rate controlled into the 70s and 80s. Patient was extubated yesterday and is currently on Ventimask. Patient will be transferred to [facility]. Patient continues to be n.p.o. with TPN and NG tube to [facility]. He is hypokalemic today which was repleted. 12/30; patient was on IV amiodarone for treatment with RVR, rate is controlled. Patient was off oxygen. patient is n.p.o. and on TPN. Surgery is following the patient. History Interval history: Patient was seen and evaluated this morning Patient is complaining abdominal pain Patient is off oxygen patient said is not feeling well Hospitalist Physical - Physical exam Narrative exam: Patient was off oxygen The patient appeared well nourished and normally developed. Vital signs as documented. Head exam is unremarkable. No scleral icterus . Neck is without jugular venous distension, thyromegaly, or carotid bruits. Lungs are clear to auscultation. Cardiac exam reveals regular rate and Rhythm. Abdominal exam reveals clean midline surgical laparatomy wound. Extremities are nonedematous and both femoral and pedal pulses are normal. ENERGY ADVISOR: Alert and oriented 3. No focal weakness. - Constitutional Vitals: Temp Pulse Resp BP Pulse Ox 98.6 F 84 23 172/94 94 12/30/20 10:05 12/30/20 11:00 12/30/20 10:12/30/20 11:00 12/30/20 09:48 General appearance: Present: no acute distress HEART Score - HEART Score Troponin: Troponin T 0.021 ng/mL (0.00-0.029) 12/22/20 14:38 Results - Labs CBC & Chem 7: 12/30/20 09:00 12/30/20 09:00 Labs: Laboratory Last Values WBC 9.8 K/mm3 (4.5-11.0) 12/30/20 09:00 RBC 2.61 M/mm3 (3.65-5.03) L 12/30/20 09:00 Hgb 7.8 gm/dl (11.8-15.2) L 12/30/20 09:00 Hct 23.7 % (35.5-45.6) L 12/30/20 09:00 MCV 91 fl (84-94) 12/30/20 09:00 MCH 30 pg (28-32) 12/30/20 09:00 MCHC 33 % (32-34) 12/30/20 09:00 RDW 17.3 % (13.2-15.2) H 12/30/20 09:00 Plt Count 163 K/mm3 (140-440) 12/30/20 09:00 Lymph % (Auto) 6.5 % (13.4-35.0) L 12/28/20 05:40 [place] % (Auto) 16.7 % (0.0-7.3) H 12/28/20 05:40 Eos % (Auto) 3.2 % (0.0-4.3) 12/28/20 05:40 Baso % (Auto) 1.0 % (0.0-1.8) 12/28/20 05:40 Lymph # (Auto) 0.3 K/mm3 (1.2-5.4) L 12/28/20 05:40 [place] # (Auto) 0.7 K/mm3 (0.0-0.8) 12/28/20 05:40 Eos # (Auto) 0.1 K/mm3 (0.0-0.4) 12/28/20 05:40 Baso # (Auto) 0.0 K/mm3 (0.0-0.1) 12/28/20 05:40 Add Manual Diff Complete 12/29/20 05:16 Total Counted 100 12/29/20 05:16 Seg Neutrophils % 71.1 % (40.0-70.0) H 12/28/20 05:40 Seg Neuts % (Manual) 79.0 % (40.0-70.0) H 12/29/20 05:16 Band Neutrophils % 1.0 % 12/29/20 05:16 Lymphocytes % (Manual) 9.0 % (13.4-35.0) L 12/29/20 05:16 Reactive Lymphs % (Man) 1.0 % 12/29/20 05:16 Monocytes % (Manual) 6.0 % (0.0-7.3) 12/29/20 05:16 Eosinophils % (Manual) 2.0 % (0.0-4.3) 12/29/20 05:16 Metamyelocytes % 2.0 % 12/29/20 05:16 Nucleated RBC % Not Reportable 12/29/20 05:16 Seg Neutrophils # 3.1 K/mm3 (1.8-7.7) 12/28/20 05:40 Seg Neutrophils # Man 5.2 K/mm3 (1.8-7.7) 12/29/20 05:16 Band Neutrophils # 0.1 K/mm3 12/29/20 05:16 Lymphocytes # (Manual) 0.6 K/mm3 (1.2-5.4) L 12/29/20 05:16 Abs React Lymphs (Man) 0.1 K/mm3 12/29/20 05:16 Monocytes # (Manual) 0.4 K/mm3 (0.0-0.8) 12/29/20 05:16 Eosinophils # (Manual) 0.1 K/mm3 (0.0-0.4) 12/29/20 05:16 Basophils # (Manual) 0.0 K/mm3 (0.0-0.1) 12/29/20 05:16 Metamyelocytes # 0.1 K/mm3 12/29/20 05:16 Myelocytes # 0.0 K/mm3 12/29/20 05:16 Promyelocytes # 0.0 K/mm3 12/29/20 05:16 Blast Cells # 0.0 K/mm3 12/29/20 05:16 WBC Morphology Not Reportable 12/29/20 05:16 Hypersegmented Neuts Not Reportable 12/29/20 05:16 Hyposegmented Neuts Not Reportable 12/29/20 05:16 Hypogranular Neuts Not Reportable 12/29/20 05:16 Smudge Cells Not Reportable 12/29/20 05:16 Toxic Granulation Not Reportable 12/29/20 05:16 Toxic Vacuolation Not Reportable 12/29/20 05:16 Dohle Bodies Not Reportable 12/29/20 05:16 Pelger-Huet Anomaly Not Reportable 12/29/20 05:16 Lamar Rods Not Reportable 12/29/20 05:16 Platelet Estimate Consistent w auto 12/29/20 05:16 Clumped Platelets Not Reportable 12/29/20 05:16 Plt Clumps, EDTA Not Reportable 12/29/20 05:16 Large Platelets Not Reportable 12/29/20 05:16 Giant Platelets Not Reportable 12/29/20 05:16 Platelet Satelliting Not Reportable 12/29/20 05:16 Plt Morphology Comment Not Reportable 12/29/20 05:16 RBC Morphology Not Reportable 12/29/20 05:16 Dimorphic RBCs Not Reportable 12/29/20 05:16 Polychromasia Not Reportable 12/29/20 05:16 Hypochromasia Not Reportable 12/29/20 05:16 Poikilocytosis Not Reportable 12/29/20 05:16 Anisocytosis 1+ 12/29/20 05:16 Microcytosis Not Reportable 12/29/20 05:16 Macrocytosis Not Reportable 12/29/20 05:16 Spherocytes Not Reportable 12/29/20 05:16 Pappenheimer Bodies Not Reportable 12/29/20 05:16 Sickle Cells Not Reportable 12/29/20 05:16 Target Cells Not Reportable 12/29/20 05:16 Tear Drop Cells Not Reportable 12/29/20 05:16 Ovalocytes Not Reportable 12/29/20 05:16 Helmet Cells Not Reportable 12/29/20 05:16 [place]-Amaya Bodies Not Reportable 12/29/20 05:16 [place] Rings Not Reportable 12/29/20 05:16 [place] Cells Not Reportable 12/29/20 05:16 Bite Cells Not Reportable 12/29/20 05:16 Crenated Cell Not Reportable 12/29/20 05:16 Elliptocytes Not Reportable 12/29/20 05:16 Acanthocytes (Spur) Not Reportable 12/29/20 05:16 Rouleaux Not Reportable 12/29/20 05:16 Hemoglobin C Crystals Not Reportable 12/29/20 05:16 Schistocytes Not Reportable 12/29/20 05:16 Malaria parasites Not Reportable 12/29/20 05:16 Lucas Bodies Not Reportable 12/29/20 05:16 Hem Pathologist Commnt No 12/29/20 05:16 PT 13.8 Sec. (12.2-14.9) 12/22/20 14:38 INR 1.07 (0.87-1.13) 12/22/20 14:38 APTT 25.1 Sec. (24.2-36.6) 12/22/20 14:38 ABG pH 7.474 (7.320-7.450) H 12/28/20 Unknown POC ABG pCO2 32.7 mmHg (32.0-48.0) 12/28/20 Unknown ABG pCO2 32.7 mm Hg 12/28/20 03:09 POC ABG pO2 83.2 mmHg (83-108) 12/28/20 Unknown ABG pO2 83.2 mm Hg (80.0-90.0) 12/28/20 03:09 POC ABG HCO3 23.5 12/28/20 Unknown ABG HCO3 23.5 mmol/L (20.0-26.0) 12/28/20 03:09 ABG O2 Saturation 96.8 (0-100) 12/28/20 Unknown ABG O2 Content 9.5 (0.0-44) 12/27/20 03:40 POC ABG Base Excess 0.1 12/28/20 Unknown ABG Base Excess 0.1 mmol/L (-2.0-3.0) 12/28/20 03:09 ABG Hemoglobin 7.8 (12.0-17.5) L 12/28/20 Unknown ABG Oxyhemoglobin 93.6 (94-98) L 12/28/20 15:00 ABG Carboxyhemoglobin 1.2 % (0.0-5.0) 12/28/20 03:09 ABG Methemoglobin 0.3 (0.0-1.5) 12/28/20 15:00 ABG Sodium 133.2 mmol/L (136.0-145.0) L 12/28/20 Unknown ABG Potassium 3.7 mmol/L (3.40-4.50) 12/28/20 Unknown ABG Chloride 102.0 mmol/L (98-107) 12/28/20 Unknown ABG Glucose 139 mg/dL (65-95) H 12/28/20 Unknown Oxyhemoglobin 95.3 % (95.0-99.0) 12/28/20 03:09 Carboxyhemoglobin 1.0 (0.5-1.5) 12/28/20 15:00 FiO2 30 % 12/27/20 03:40 FiO2 % 30 12/28/20 Unknown Sodium 135 mmol/L (137-145) L 12/30/20 09:00 Potassium 3.7 mmol/L (3.6-5.0) 12/30/20 09:00 Chloride 95.9 mmol/L (98-107) L 12/30/20 09:00 Carbon Dioxide 23 mmol/L (22-30) 12/30/20 09:00 Anion Gap 20 mmol/L 12/30/20 09:00 BUN 85 mg/dL (9-20) H 12/30/20 09:00 Creatinine 10.6 mg/dL (0.8-1.3) H 12/30/20 09:00 Estimated GFR 6 ml/min 12/30/20 09:00 BUN/Creatinine Ratio 8 % 12/30/20 09:00 Glucose 128 mg/dL (75-100) H 12/30/20 09:00 POC Glucose 135 mg/dL (70-105) H 12/30/20 05:23 Lactic Acid 1.40 mmol/L (0.7-2.0) 12/24/20 15:06 Calcium 8.3 mg/dL (8.4-10.2) L 12/30/20 09:00 Phosphorus 3.20 mg/dL (2.5-4.5) 12/29/20 05:16 Magnesium 2.00 mg/dL (1.7-2.3) 12/29/20 05:16 Total Bilirubin 2.40 mg/dL (0.1-1.2) H 12/30/20 09:00 AST 85 units/L (5-40) H 12/30/20 09:00 ALT 25 units/L (7-56) 12/30/20 09:00 Alkaline Phosphatase 216 units/L (35-129) H 12/30/20 09:00 Ammonia 30.0 umol/L (25-60) 12/22/20 14:38 Troponin T 0.021 ng/mL (0.00-0.029) 12/22/20 14:38 Total Protein 5.3 g/dL (6.3-8.2) L 12/30/20 09:00 Albumin 2.6 g/dL (3.9-5) L 12/30/20 09:00 Albumin/Globulin Ratio 1.0 % 12/30/20 09:00 Triglycerides 155 mg/dL (2-149) H 12/30/20 09:00 Lipase 41 units/L (13-60) 12/22/20 14:38 Procalcitonin > 200.00 ng/mL (<0.15) 12/24/20 15:06 TSH 1.470 mlU/mL (0.270-4.200) 12/28/20 19:44 Arterial Blood Glucose 139 mg/dL (65-95) H 12/28/20 Unknown Arterial Blood Ionized Calcium 4.3 mg/dL (4.6-5.3) L 12/28/20 Unknown Urine Color Yellow (Yellow) 12/22/20 18:53 Urine Turbidity Clear (Clear) 12/22/20 18:53 Urine pH 7.0 (5.0-7.0) 12/22/20 18:53 Ur Specific [place] 1.012 (1.003-1.030) 12/22/20 18:53 Urine Protein >500 mg/dL (Negative) 12/22/20 18:53 Urine Glucose (UA) Neg mg/dL (Negative) 12/22/20 18:53 Urine Ketones Neg mg/dL (Negative) 12/22/20 18:53 Urine Blood Neg (Negative) 12/22/20 18:53 Urine Nitrite Neg (Negative) 12/22/20 18:53 Urine Bilirubin Neg (Negative) 12/22/20 18:53 Urine Urobilinogen < 2.0 mg/dL (<2.0) 12/22/20 18:53 Ur Leukocyte Esterase Neg (Negative) 12/22/20 18:53 Urine WBC (Auto) < 1.0 /HPF (0.0-6.0) 12/22/20 18:53 Urine RBC (Auto) 1.0 /HPF (0.0-6.0) 12/22/20 18:53 Fluid Type Dialysate 12/22/20 Unknown Fluid Color Colorless 12/22/20 Unknown Fluid Appearance Cloudy 12/22/20 Unknown Fluid WBC 208 /mm3 12/22/20 Unknown Fluid RBC 45 /mm3 12/22/20 Unknown Fluid Seg Neutrophils 82.0 % 12/22/20 Unknown Fluid Lymphocytes 11.0 % 12/22/20 Unknown Fluid Reactive Lymphs 0 % 12/22/20 Unknown Fluid Monocytes 7.0 % 12/22/20 Unknown Fluid Eosinophils 0 % 12/22/20 Unknown Fluid Basophils 0 % 12/22/20 Unknown Random Vancomycin 13.7 ug/mL (0-40.0) 12/26/20 Unknown Hepatitis A IgM Ab Non-reactive (NonReactive) 12/23/20 11:38 Hep Bs Antigen Non-reactive (Negative) 12/23/20 11:38 Hep B Core IgM Ab Non-reactive (NonReactive) 12/23/20 11:38 Hepatitis C Antibody Non-reactive (NonReactive) 12/23/20 11:38 Blood Type A POSITIVE 12/23/20 11:40 Antibody Screen Negative 12/23/20 11:40 Crossmatch See Detail 12/23/20 11:40 Microbiology: Microbiology 12/24/20 23:11 Peripheral/Venous Blood Culture - Final NO GROWTH AFTER 5 DAYS 12/24/20 23:11 Peripheral/Venous Blood Culture - Final NO GROWTH AFTER 5 DAYS 12/22/20 Unknown Peritioneal Dialysate Peritoneal Dialysate Culture - Final Jeffery/IV: Voiding Method Incontinent Active Medications - Current Medications Current Medications: Generic Name Dose Route Start Last Admin Trade Name Freq PRN Reason Stop Dose Admin Albuterol 2.5 mg 12/22/20 19:42 Albuterol 2.5 Mg/3 Ml Nebu IH Q4HRT PRN Shortness Of Breath Famotidine 10 mg 12/24/20 13:00 12/30/20 10:31 Famotidine 20 Mg/2 Ml Inj IV 10 mg BID THOMAS Administration Fentanyl 50 mcg 12/24/20 11:35 Fentanyl 100 Mcg/2 Ml Inj IV Q10MIN PRN ANALGESIA Fentanyl 25 mcg 12/27/20 11:49 12/30/20 04:19 Fentanyl 100 Mcg/2 Ml Inj IV 25 mcg Q2H PRN Administration Pain , Severe (7-10) Haloperidol Lactate 5 mg 12/29/20 14:16 12/30/20 10:41 Haloperidol Lactate 5 Mg/1 Ml Inj IV 5 mg Q12H PRN Administration Agitation Heparin Sodium (Porcine) 5,000 unit 12/24/20 10:00 12/29/20 21:38 Heparin 5,000 Unit/1 Ml Vial SUB-Q 5,000 unit Q12HR THOMAS Administration Hydrophilic Ointment 1 applic 12/24/20 12:03 Lip Therapy Vaseline TP Q2H PRN Dry Lips Sodium Chloride 100 mls @ 999 mls/hr 12/23/20 11:03 Nacl 0.9% IV RYLAND PRN Hypotension Propofol 1,000 mg in 100 mls @ 5.484 mls/hr 12/23/20 19:00 12/24/20 18:54 Diprivan 10 Mg/Ml IV 0 mcg/kg/min TITR THOMAS 0 mls/hr Titration Protocol 10 MCG/KG/MIN Fluconazole 200 mg in 100 mls @ 100 mls/hr 12/27/20 13:00 12/29/20 12:48 Diflucan IV 100 mls/hr Q24H THOMAS Administration Protocol Ampicillin Sodium/Sulbactam Sodium 1.5 gm in 50 mls @ 100 mls/hr 12/28/20 14:00 12/29/20 21:38 Unasyn/Ns 1.5 Gm/50 Ml IV 100 mls/hr Q8H THOMAS Administration Protocol Amiodarone HCl 900 mg/ 500 mls @ 33.333 mls/hr 12/28/20 17:00 12/29/20 17:24 Dextrose IV 1 mg/min DIRECT THOMAS 33.333 mls/hr Administration Protocol 1 MG/MIN Amino Acids/Electrolytes/Dextrose 2,016 mls @ 84 mls/hr 12/29/20 20:00 12/29/20 21:41 Tpn Adult IV 12/30/20 19:59 84 mls/hr DAILY@2000 THOMAS Administration Protocol Metoprolol Tartrate 5 mg 12/29/20 15:00 12/30/20 10:31 Metoprolol Tartrate 5 Mg/5 Ml Inj IV 5 mg BID THOMAS Administration Morphine Sulfate 2 mg 12/23/20 10:00 12/30/20 10:00 Morphine 2 Mg/1 Ml Inj IV 2 mg Q4H PRN Administration Pain, Moderate (4-6) Multi-Ingred Cream/Lotion/Oil/Oint 1 applic 12/24/20 12:03 Mineral Oil/Petrolatum, White Ophth Oint 3.5 Gm OU Q4H PRN Dry Eye(s) Ondansetron HCl 4 mg 12/22/20 19:42 Ondansetron 4 Mg/2 Ml Inj IV Q8H PRN Nausea And Vomiting Scopolamine 1 each 12/28/20 16:00 12/28/20 15:41 Scopolamine Transdermal Patch 72 Hr TD 1 each Q72H THOMAS Administration Sodium Chloride 10 ml 12/22/20 22:00 12/29/20 21:42 Sodium Chloride 0.9% 10 Ml Flush Syringe IV 10 ml BID THOMAS Administration Sodium Chloride 10 ml 12/22/20 19:42 Sodium Chloride 0.9% 10 Ml Flush Syringe IV PRN PRN LINE FLUSH Nutrition/Malnutrition Assess - Dietary Evaluation Nutrition/Malnutrition Findings: Nutrition Notes Start: 12/24/20 12:36 Freq: Status: Active Protocol: Document 12/29/20 09:30 EN (Rec: 12/29/20 09:40 EN [id number]) Co-Sign 12/29/20 09:30 LP Nutrition Notes Initial or Follow up Reassessment Current Diagnosis CKD (stage V CKD),Sepsis, Hypertension,Heart Failure Other Pertinent Diagnosis bacterial peritonitis, on HD MWF/PRN, SBO, Crohns disease, Anemia Current Diet TPN at 84 ml/hr Labs/Tests BUN 59 Cr 8.3 K+ 3.4 Cl 96.6 Ca 8.2 Bilirubin 3.0 Pertinent Medications Fentanyl Heparin Height 5 ft 7 in Weight 94.5 kg [place] Body Weight (kg) 67.27 BMI 32.6 Weight Status Obese Subjective/Other Information F/u for updated labs. CPN day 4. Pt remains NPO. Pt extubated yesterday. Pt continues with post-op ileus. Percent of energy/protein needs met: 50%/82% Burn Absent Trauma Absent Difficulty In Swallowing Skin Integrity/Comment Intact Current % PO Negligible Minimum of two criteria No physical signs of malnutrition #1 Nutrition Diagnosis Inadequate oral intake As Evidenced by Signs and Symptoms Pt extubated, SBOs remain present causing inability to feed via PO or TF Diagnosis Progress(for reassessment Continues documentation) Is patient on ventilator? No Is Patient Ambulatory and/or Out of Bed No REE-([facility]-confined to bed) 2048.168 Kcal/Kg value to use for calculation 21 Approximate Energy Requirements Using 1985 kcal/Kg Calculation Used for Recommendations Kcal/kg Additional Notes Protein needs: >97g (>1.2g/kg AdjBW) fluid needs: 1 mL/kcal or per MD Nutrition Intervention Change Diet Order: Continue TPN Nutrition Support: TPN at 84ml/hr regimen: This provides 1155mOsm AA 5% K+ 60mEq Cl/CO2 100:0 Kcal 1,080 Protein (gm) 100 Carbohydrates (gm) 200 Fat (gm) 0 Fluid (mL) 2,016 Goal #1 Meet kcal and protein needs as best as possible Anticipated Discharge Needs: unable to determine at this time Follow-Up By: 12/30/20 Additional Comments Labs in AM, BMP and Triglycerides
--- NOTE | 2020-12-30 11:28 | Progress Note ---
Assessment and Plan New onset atrial fibrillation pt has revered to sinus rhythm Hx of nonischemic cardiomyopathy, resolving LVEF 50-55% by echo this presentation Small bowl obstruction status post expiratory laparotomy ESRD on PD Anemia s/p PRBCs He is not yet able to take oral medications. We will continue intravenous amiodarone, and intravenous metoprolol for paroxysmal atrial fibrillation. Patient is not a candidate for anticoagulation at this time due to his postoperative status and the presence of severe anemia. Subjective Date of service: 12/30/20 Principal diagnosis: Ac hypoxemic resp failure; Severe Sepsis; Peritonitis; Acute SBO; ESRD; CHF Interval history: Currently, he is sinus rhythm on telemetry. Objective Vital Signs Temp Pulse Pulse Resp BP Pulse Ox 12/30/20 11:15 109 H 169/106 12/30/20 11:00 84 172/94 12/30/20 10:45 83 145/86 12/30/20 10:30 97 H 169/93 12/30/20 10:15 92 H 146/88 12/30/20 10:10 90 151/88 12/30/20 10:05 98.6 F 87 23 161/90 12/30/20 09:48 94 12/30/20 09:30 89 22 161/92 94 12/30/20 09:00 91 H 24 161/92 12/30/20 08:30 91 H 25 H 160/92 100 12/30/20 08:28 20 160/94 12/30/20 07:30 87 20 160/94 12/30/20 07:00 91 H 24 160/94 100 12/30/20 06:30 93 H 24 158/88 12/30/20 06:00 86 20 158/88 100 12/30/20 05:30 86 20 158/88 12/30/20 05:00 88 22 159/91 12/30/20 04:30 83 18 158/88 100 12/30/20 04:19 22 12/30/20 04:00 88 101 H 22 165/89 99 12/30/20 03:46 100 F H 12/30/20 03:30 103 H 32 H 165/89 96 12/30/20 03:00 87 21 99 12/30/20 02:30 90 21 98 12/30/20 02:00 89 20 165/89 97 12/30/20 01:30 87 21 161/89 98 05/07/21 01:00 90 23 165/89 84 12/30/20 00:30 89 24 168/86 12/30/20 00:00 86 22 153/89 92 12/29/20 23:43 100.3 F H 12/29/20 23:30 84 19 149/91 94 12/29/20 23:00 83 23 162/90 94 12/29/20 22:30 84 21 154/88 94 12/29/20 22:01 88 31 H 140/87 12/29/20 21:40 89 166/94 12/29/20 21:30 91 H 23 166/94 92 12/29/20 21:10 96 12/29/20 21:00 90 22 164/90 92 12/29/20 20:30 92 H 24 167/89 95 12/29/20 20:00 100.1 F H 92 H 21 160/94 94 12/29/20 19:30 87 21 152/88 95 12/29/20 19:00 108 H 23 149/93 92 12/29/20 18:30 97 H 23 152/91 94 12/29/20 18:25 111 H 22 151/90 96 12/29/20 18:01 109 H 21 139/86 93 12/29/20 17:31 107 H 25 H 139/91 90 12/29/20 17:14 96 12/29/20 17:00 97 H 22 132/92 93 12/29/20 16:30 97 H 25 H 129/93 90 12/29/20 16:16 104 H 142/85 12/29/20 16:01 116 H 25 H 144/86 91 12/29/20 16:00 99.1 F 90 100 H 20 96 12/29/20 15:31 97 H 20 152/86 91 12/29/20 15:01 145 H 33 H 140/80 12/29/20 14:30 100 H 21 136/87 94 12/29/20 14:00 134 H 31 H 139/85 95 12/29/20 13:31 106 H 21 149/90 97 12/29/20 13:01 107 H 31 H 144/90 96 12/29/20 12:31 108 H 21 148/88 12/29/20 12:00 98.7 F 96 H 110 H 21 139/85 100 05/06/21 11:30 95 H 22 146/87 92 - Physical Examination General: No Apparent Distress HEENT: Positive: PERRL Neck: Positive: neck supple Cardiac: Positive: Reg Rate and Rhythm Neuro: Positive: Weakness - Labs and Meds Cardiac Enzymes 12/30/20 Range/Units 09:00 AST 85 H (5-40) units/L Lipids 12/30/20 Range/Units 09:00 Triglycerides 155 H (2-149) mg/dL CBC 12/30/20 Range/Units 09:00 WBC 9.8 (4.5-11.0) K/mm3 RBC 2.61 L (3.65-5.03) M/mm3 Hgb 7.8 L (11.8-15.2) gm/dl Hct 23.7 L (35.5-45.6) % Plt Count 163 (140-440) K/mm3 Comprehensive Metabolic Panel 12/30/20 Range/Units 09:00 Sodium 135 L (137-145) mmol/L Potassium 3.7 (3.6-5.0) mmol/L Chloride 95.9 L (98-107) mmol/L Carbon Dioxide 23 (22-30) mmol/L BUN 85 H (9-20) mg/dL Creatinine 10.6 H (0.8-1.3) mg/dL Glucose 128 H (75-100) mg/dL Calcium 8.3 L (8.4-10.2) mg/dL AST 85 H (5-40) units/L ALT 25 (7-56) units/L Alkaline Phosphatase 216 H (35-129) units/L Total Protein 5.3 L (6.3-8.2) g/dL Albumin 2.6 L (3.9-5) g/dL - Allied health notes Allied health notes reviewed: nursing
--- NOTE | 2020-12-30 12:01 | Progress Note ---
Assessment and Plan Cultures: 12/22/2020 blood culture: Streptococcus bovis, Prevotella 12/22/2020 PD fluid culture: No growth 12/24/2020 tracheal aspirate culture: No growth 12/24/2020 blood culture: No growth A/P: 60-year-old male with ESRD on PD, Crohn's disease, CHF, gastroesophageal reflux disease was admitted to the hospital with complaints of abdominal pain and fever: #Severe sepsis: Secondary to small bowel obstruction/necrotic bowel with associated peritonitis. #Small bowel obstruction/necrotic bowel: with concern for PD associated peritonitis: Nephrology and general surgery following. Status post exploratory laparotomy with extensive lysis, primary anastomosis, had necrotic segment of small bowel. #Streptococcus bovis bacteremia and Prevotella bacteremia: secondary to above. TTE without obvious vegetations. #ESRD: Renally dose antibiotics. Used to be on PD, cath remains in place. Now on HD. #Elevated LFTs: Secondary to sepsis. #Acute respiratory failure: extubated. Recs: -continue renally dosed IV Unasyn, end date: 01/06/2021 -Continue fluconazole for now Yesika Denny MD, FACP [facility], [place], [facility] O: [phone] F: [phone] Subjective Date of service: 12/30/20 Principal diagnosis: Ac hypoxemic resp failure; Severe Sepsis; Peritonitis; Acute SBO; ESRD; CHF Interval history: Getting HD. Low grade fever. Pulled out NG tube which was replaced per RN. BM + Objective - Exam Narrative Exam: Physical Exam: Constitutional: sleepy, no distress Head, Ears, Nose: Normocephalic, atraumatic. External ears, nose normal Eyes: Conjunctivae/corneas clear. No icterus. No ptosis. Neck: supple, no meningeal signs Cardiovascular: S1, S2 + Respiratory: AE fair bilaterally and equal GI: Midline incision, PD catheter present, bowel sounds hypoactive Musculoskeletal: No pedal edema, no cyanosis. Skin: No rash or abscess Hem/Lymphatic: No palpable cervical or supraclavicular nodes. No lymphangitis Psych: calm, not agitated Neurological: sleepy alert, grossly non-focal - Constitutional Vitals: Vital Signs Temp Pulse Resp BP Pulse Ox 98.6 F 110 H 23 163/99 94 12/30/20 10:05 12/30/20 11:30 12/30/20 10:05 12/30/20 11:30 12/30/20 09:48 Temperature -Last 24 Hours Temperature 98.6 F Temperature 100 F Temperature 100.3 F Temperature 100.1 F Temperature 99.1 F Temperature 98.7 F - Labs CBC & Chem 7: 12/30/20 09:00 12/30/20 09:00 Labs: Abnormal lab results 12/29/20 12/29/20 12/30/20 Range/Units 17:29 23:22 05:23 RBC (3.65-5.03) M/mm3 Hgb (11.8-15.2) gm/dl Hct (35.5-45.6) % RDW (13.2-15.2) % Sodium (137-145) mmol/L Chloride (98-107) mmol/L BUN (9-20) mg/dL Creatinine (0.8-1.3) mg/dL Glucose (75-100) mg/dL POC Glucose 130 H 117 H 135 H (70-105) mg/dL Calcium (8.4-10.2) mg/dL Total Bilirubin (0.1-1.2) mg/dL AST (5-40) units/L Alkaline Phosphatase (35-129) units/L Total Protein (6.3-8.2) g/dL Albumin (3.9-5) g/dL Triglycerides (2-149) mg/dL 12/30/20 12/30/20 Range/Units 09:00 09:00 RBC 2.61 L (3.65-5.03) M/mm3 Hgb 7.8 L (11.8-15.2) gm/dl Hct 23.7 L (35.5-45.6) % RDW 17.3 H (13.2-15.2) % Sodium 135 L (137-145) mmol/L Chloride 95.9 L (98-107) mmol/L BUN 85 H (9-20) mg/dL Creatinine 10.6 H (0.8-1.3) mg/dL Glucose 128 H (75-100) mg/dL POC Glucose (70-105) mg/dL Calcium 8.3 L (8.4-10.2) mg/dL Total Bilirubin 2.40 H (0.1-1.2) mg/dL AST 85 H (5-40) units/L Alkaline Phosphatase 216 H (35-129) units/L Total Protein 5.3 L (6.3-8.2) g/dL Albumin 2.6 L (3.9-5) g/dL Triglycerides 155 H (2-149) mg/dL
--- NOTE | 2020-12-30 12:12 | XRay Report ---
CHEST 1 VIEW 12/30/2020 11:41 AM INDICATION / CLINICAL INFORMATION: ng tube placement confirmation. COMPARISON: 12/27/2020 FINDINGS: Patient is rotated. Left costophrenic angle was not imaged SUPPORT DEVICES: Interval placement of a PermCath on the left and a PICC line on the left. Given degr ee of patient rotation the tip of the permacath appears to project the level the superior vena cava n ear the right atrial junction. The tip of the PICC line appears to be curved into the azygos vein. Na sogastric tube tip projects the level of the distal third of the esophagus HEART / MEDIASTINUM: No significant abnormality. LUNGS / PLEURA: There are patchy airspace opacities noted in the right mid and lower lung zone. No pn eumothorax. ADDITIONAL FINDINGS: No significant additional findings. IMPRESSION: 1. Nasogastric tube tip projects the expected location of the distal third of the esophagus. 2. Distal tip of the left PICC line appears to be curved into the azygos vein. 3. Tip of the permacath appears to be at the level the junction of the SVC and right atrium. 4. There is patchy airspace opacity in the right mid and lower lung zone. The left costophrenic angle was not included on this radiograph. 5. No pneumothorax is seen. IMPORTANT FINDING: Time of Communication (AIRLINE PILOT/CDT): 1105 Licensed Practitioner Receiving Report: Cecilia Signer Name: Mehran Rosas MD Signed: 12/30/2020 12:08 PM Workstation Name: [email or web address]
--- NOTE | 2020-12-30 12:24 | XRay Report ---
CHEST 1 VIEW 1204 hours INDICATION: ng tube placement. COMPARISON: Earlier today at 1141 hours FINDINGS: Support devices: The nasogastric tube is been repositioned and now terminates in the distal stomach. Left IJ permacath and left PICC line remain in adequate position. Heart: Within normal limits. Lungs/Pleura: Minor atelectatic changes in the left lower lobe are stable. The lungs are clear otherw ise. Additional findings: None. IMPRESSION: Adequate placement of the nasogastric tube. Signer Name: Rodney Ho Jr, MD Signed: 12/30/2020 12:20 PM Workstation Name: [id number]
[2020-12-30] MEDS: DIGOXIN 0.5 MG/2 ML INJ IV SCH ×2 (13:28→18:52)
[2020-12-30] MEDS: hydrALAZINE 20 MG/1 ML INJ IV SCH ×4 (13:29→21:35)
[2020-12-30] MEDS: FLUCONAZOLE 200 MG 200 MG/100 ML BAG IV SCH (13:31)
[2020-12-30] MEDS: HEPARIN 5,000 UNIT/1 ML VIAL SUB-Q SCH ×2 (13:31→21:36)
[2020-12-30] MEDS: AMPICILLIN/SULBACTA 1.5GM/50ML 1.5 GM/50 ML BAG IV SCH ×3 (14:05→21:43)
--- NOTE | 2020-12-30 14:35 | Progress Note ---
Assessment and Plan POD#7 s/p ex lap with extensive lysis of adhesions and two small bowel resections with primary anastamosis for SBO with necrotic segement small bowel. Afebrile and stable s/p extubation. - showing clinical signs of resolving ileus. will clamp trial NGT today and get abdominal x-ray. - ESRD -DD dialysis per nephrology - continue abx Subjective Date of service: 12/30/20 Patient Reports: Positive: no new complaints, bowel movement (no acute events. Pt had a large bowel movement. Not complaining of abdominal pain) Objective Vital Signs - 12hr 12/30/20 12/30/20 12/30/20 03:00 03:30 03:46 Temperature 100 F H Pulse Rate 87 103 H Pulse Rate [ From Monitor] Respiratory 21 32 H Rate Blood Pressure 165/89 O2 Sat by Pulse 99 96 Oximetry 12/30/20 12/30/20 12/30/20 04:00 04:19 04:30 Temperature Pulse Rate 88 83 Pulse Rate [ 101 H From Monitor] Respiratory 22 22 18 Rate Blood Pressure 165/89 158/88 O2 Sat by Pulse 99 100 Oximetry 12/30/20 12/30/20 12/30/20 05:00 05:30 06:00 Temperature Pulse Rate 88 86 86 Pulse Rate [ From Monitor] Respiratory 22 20 20 Rate Blood Pressure 159/91 158/88 158/88 O2 Sat by Pulse 100 Oximetry 12/30/20 12/30/20 12/30/20 06:30 07:00 07:30 Temperature Pulse Rate 93 H 91 H 87 Pulse Rate [ From Monitor] Respiratory 24 24 20 Rate Blood Pressure 158/88 160/94 160/94 O2 Sat by Pulse 100 Oximetry 12/30/20 12/30/20 12/30/20 08:00 08:28 08:30 Temperature 99.6 F Pulse Rate 91 H Pulse Rate [ From Monitor] Respiratory 20 25 H Rate Blood Pressure 160/94 160/92 O2 Sat by Pulse 100 Oximetry 12/30/20 12/30/20 12/30/20 09:00 09:30 09:48 Temperature Pulse Rate 91 H 89 Pulse Rate [ From Monitor] Respiratory 24 22 Rate Blood Pressure 161/92 161/92 O2 Sat by Pulse 94 94 Oximetry 12/30/20 12/30/20 12/30/20 10:00 10:05 10:10 Temperature 98.6 F Pulse Rate 88 87 90 Pulse Rate [ From Monitor] Respiratory 23 23 Rate Blood Pressure 161/90 161/90 151/88 O2 Sat by Pulse 96 Oximetry 12/30/20 12/30/20 12/30/20 10:15 10:30 10:45 Temperature Pulse Rate 92 H 94 H 83 Pulse Rate [ From Monitor] Respiratory 29 H Rate Blood Pressure 146/88 169/93 145/86 O2 Sat by Pulse 95 Oximetry 12/30/20 12/30/20 12/30/20 11:00 11:15 11:30 Temperature Pulse Rate 80 109 H 108 H Pulse Rate [ From Monitor] Respiratory 24 31 H Rate Blood Pressure 172/94 169/106 163/99 O2 Sat by Pulse 98 91 Oximetry 12/30/20 12/30/20 12/30/20 11:45 12:00 12:15 Temperature Pulse Rate 103 H 94 H 92 H Pulse Rate [ From Monitor] Respiratory 31 H Rate Blood Pressure 165/93 145/86 140/82 O2 Sat by Pulse 98 Oximetry 12/30/20 12/30/20 12/30/20 12:24 12:30 12:45 Temperature 99.1 F Pulse Rate 87 88 Pulse Rate [ From Monitor] Respiratory 23 Rate Blood Pressure 151/88 147/87 O2 Sat by Pulse 95 Oximetry 12/30/20 12/30/20 12/30/20 13:00 13:15 13:30 Temperature Pulse Rate 98 H 86 86 Pulse Rate [ From Monitor] Respiratory 33 H Rate Blood Pressure 160/93 166/94 167/92 O2 Sat by Pulse 95 Oximetry 12/30/20 12/30/20 13:40 13:50 Temperature 98.6 F Pulse Rate 86 88 Pulse Rate [ From Monitor] Respiratory 24 Rate Blood Pressure 147/95 161/90 O2 Sat by Pulse Oximetry - General physical appearance well developed, no distress, no pain - Respiratory normal expansion, normal respiratory effort - Abdomen soft, distended, other (staple line c/d/i, appropriately tender to palpation, 250cc recorded from NGT over last 24 hours. light bilious) - Labs 12/30/20 09:00 12/30/20 09:00 Diabetes panel 12/30/20 Range/Units 09:00 Sodium 135 L (137-145) mmol/L Potassium 3.7 (3.6-5.0) mmol/L Chloride 95.9 L (98-107) mmol/L Carbon Dioxide 23 (22-30) mmol/L BUN 85 H (9-20) mg/dL Creatinine 10.6 H (0.8-1.3) mg/dL Glucose 128 H (75-100) mg/dL Calcium 8.3 L (8.4-10.2) mg/dL AST 85 H (5-40) units/L ALT 25 (7-56) units/L Alkaline Phosphatase 216 H (35-129) units/L Total Protein 5.3 L (6.3-8.2) g/dL Albumin 2.6 L (3.9-5) g/dL Triglycerides 155 H (2-149) mg/dL Calcium panel 12/30/20 Range/Units 09:00 Calcium 8.3 L (8.4-10.2) mg/dL Albumin 2.6 L (3.9-5) g/dL Pituitary panel 12/30/20 Range/Units 09:00 Sodium 135 L (137-145) mmol/L Potassium 3.7 (3.6-5.0) mmol/L Chloride 95.9 L (98-107) mmol/L Carbon Dioxide 23 (22-30) mmol/L BUN 85 H (9-20) mg/dL Creatinine 10.6 H (0.8-1.3) mg/dL Glucose 128 H (75-100) mg/dL Calcium 8.3 L (8.4-10.2) mg/dL Adrenal panel 12/30/20 Range/Units 09:00 Sodium 135 L (137-145) mmol/L Potassium 3.7 (3.6-5.0) mmol/L Chloride 95.9 L (98-107) mmol/L Carbon Dioxide 23 (22-30) mmol/L BUN 85 H (9-20) mg/dL Creatinine 10.6 H (0.8-1.3) mg/dL Glucose 128 H (75-100) mg/dL Calcium 8.3 L (8.4-10.2) mg/dL Total Bilirubin 2.40 H (0.1-1.2) mg/dL AST 85 H (5-40) units/L ALT 25 (7-56) units/L Alkaline Phosphatase 216 H (35-129) units/L Total Protein 5.3 L (6.3-8.2) g/dL Albumin 2.6 L (3.9-5) g/dL
--- NOTE | 2020-12-30 15:52 | XRay Report ---
ABDOMEN 1 VIEW(S) INDICATION / CLINICAL INFORMATION: post op ileus. COMPARISON: Abdominal series 12/23/2020 FINDINGS: TUBES / LINES: Nasogastric tube terminates in the distal stomach. Peritoneal dialysis catheter and pe lvis. BOWEL GAS PATTERN: No significant abnormality. FREE AIR / EXTRALUMINAL GAS: None seen. ADDITIONAL FINDINGS: No significant additional findings. IMPRESSION: No significant abnormality. No convincing ileus. No obstruction. Signer Name: Rodney Ho Jr, MD Signed: 12/30/2020 3:48 PM Workstation Name: [id number]
[2020-12-30] MEDS ORDERED: FAT EMULSIONS 20% 250 ML IV SCH (20:00)
[2020-12-30] MEDS ORDERED: TOTAL PARENTERAL NUTRITION 2,016 ML IV SCH (20:00)
[2020-12-31] MEDS: HALOPERIDOL LACTATE 5 MG/1 ML INJ IV PRN (00:19)
[2020-12-31] MEDS: fentaNYL 100 MCG/2 ML INJ IV PRN ×2 (00:31→07:41)
[2020-12-31] MEDS: METOPROLOL TARTRATE 5 MG/5 ML INJ IV SCH ×5 (01:06→18:42)
[2020-12-31] MEDS: hydrALAZINE 20 MG/1 ML INJ IV SCH ×5 (01:07→18:08)
[2020-12-31] MEDS: MORPHINE 2 MG/1 ML INJ IV PRN (02:33)
--- NOTE | 2020-12-31 04:42 | XRay Report ---
CHEST 1 VIEW 12/31/2020 3:50 AM INDICATION / CLINICAL INFORMATION: Resp distress. COMPARISON: Previous day. FINDINGS: SUPPORT DEVICES: Dialysis catheter and central line remain. The tip of the central line is looped at the SVC. HEART / MEDIASTINUM: Stable cardiomegaly. LUNGS / PLEURA: Opacity remains left base. No pneumothorax. ADDITIONAL FINDINGS: No significant additional findings. IMPRESSION: 1. Tip of the central line is looped. 2. Persistent opacity left base. Signer Name: Isra Sahni MD Signed: 12/31/2020 4:37 AM Workstation Name: [id number]
[2020-12-31] MEDS ORDERED: LORazepam 2 MG/ML VIAL IV ONE (05:28)
[2020-12-31] MEDS: AMPICILLIN/SULBACTA 1.5GM/50ML 1.5 GM/50 ML BAG IV SCH (05:57)
[2020-12-31] MEDS ORDERED: SUCCINYLCHOLINE CHLORIDE 200 MG/10 ML INJ MDV ONE (06:15)
[2020-12-31] MEDS ORDERED: ETOMIDATE 20 MG/10 ML INJ IV ONE (06:15)
--- NOTE | 2020-12-31 06:30 | Event Note ---
Procedure note: Rapid sequence intubation Indication: Acute respiratory failure I was asked by hospitalist to assist with patient requiring mechanical ventilation. Research Chemical Engineer recommended intubation. I discussed case with respiratory therapist at the bedside. Patient had low PaO2 on ABG. Patient receiving oxygen via nasal cannula yet breathing 54 breaths/min. I observed accessory muscle use and abdominal retractions. Procedure: Patient was preoxygenated with nonrebreather for 3 minutes. Patient was inducted and paralyzed with 20 mg of etomidate and 150 mg of succinylcholine respectively. Patient received 15 L nasal cannula of apneic oxygen flow throughout the procedure. Patient has large tongue with short neck and chin. I anticipated a possible difficult airway. I prepared with tube introducer and oral airway at the bedside. I used video laryngoscope Delvin 4 blade to visualize vocal cords/glottic opening. I indirectly visualize 7.5 ETT entering the glottic opening with video laryngoscopy. ETT position confirmed with color change, condensation in tube. Immediately after procedure oxygen saturation 100%. Patient did not experience desaturation at any point of the procedure.
[2020-12-31] MEDS ORDERED: LIP THERAPY VASELINE TP PRN (06:39)
[2020-12-31] MEDS ORDERED: MINERAL OIL/PETROLATUM, WHITE OPHTH OINT 3.5 GM OU PRN (06:39)
--- NOTE | 2020-12-31 06:59 | XRay Report ---
CHEST 1 VIEW 12/31/2020 6:39 AM INDICATION / CLINICAL INFORMATION: confirmation s/p intubation. COMPARISON: Endotracheal tube in satisfactory position. Dialysis catheter unchanged. Central line tip now in satisfactory position. FINDINGS: SUPPORT DEVICES: None. HEART / MEDIASTINUM: Stable cardiomegaly. LUNGS / PLEURA: Increasing basilar opacity right base is likely atelectasis. Persistent mild opacity left base. No pneumothorax. ADDITIONAL FINDINGS: No significant additional findings. IMPRESSION: 1. Lines and tubes in satisfactory position. 2. Mild increasing atelectasis right base. Signer Name: Isra Sahni MD Signed: 12/31/2020 6:54 AM Workstation Name: [id number]
--- NOTE | 2020-12-31 07:10 | Event Note ---
Date: 12/31/20 60-year-old male who was been on admission for sepsis, small bowel obstruction status post exploratory laparotomy, A. fib with RVR. Attention called by nursing staff that patient has had increased work of breathing. Chest x-ray and ABG were requested and later reviewed. Recommendation given by erp project manager for intubation. ER physician consulted for intubation.
[2020-12-31 07:21] LABS: Hematocrit 30.3 % (35.5-45.6); Hemoglobin 9.8 gm/dl (11.8-15.2); Mean Corpuscular HGB Conc 32 % (32-34); Mean Corpuscular Volume 92 fl (84-94); Platelet Count 272 K/mm3 (140-440); Red Blood Count 3.32 M/mm3 (3.65-5.03); Red Cell Distribution Width 17.3 % (13.2-15.2)
[2020-12-31] MEDS: NORepinephrine/NS 8 MG-250 ML 8 MG/250 ML INFUS..BTL IV SCH ×3 (08:00→20:48)
[2020-12-31 08:25] LABS: Calcium 8.8 mg/dL (8.4-10.2)
--- NOTE | 2020-12-31 08:25 | Event Note ---
Date: 12/31/20 Called early hours of the morning, patient was in respiratory distress. Patient was intubated by ER. Now hypotensive, will initiate Norepinephrine infusion via a pre-existing trialysis catheter ABG ordered Place OGT/NGT for nutritional support. Discussed with charge nurse
[2020-12-31] MEDS: DIGOXIN 0.5 MG/2 ML INJ IV SCH (09:35)
[2020-12-31] MEDS: HEPARIN 5,000 UNIT/1 ML VIAL SUB-Q SCH ×2 (09:42→23:15)
[2020-12-31] MEDS: FAMOTIDINE 20 MG/2 ML INJ IV SCH (09:46)
[2020-12-31 09:53] LABS: ABG Base Excess -1.9 mmol/L (-2.0-3.0); ABG Methemoglobin 0.6 % (0.0-1.5); ABG Oxygen Saturation 99.6 % (95.0-99.0); ABG PCO2 33.9 mm Hg; ABG PH 7.43 pH Units (7.350-7.450)
--- NOTE | 2020-12-31 10:41 | XRay Report ---
XR abdomen 1V ap INDICATION: ngt placement. COMPARISON: 12/30/2020 FINDINGS: The tip of the NG tube projects over the body of the stomach. Signer Name: Bradley Chaparro MD Signed: 12/31/2020 10:37 AM Workstation Name: [id number]
--- NOTE | 2020-12-31 11:28 | Progress Note ---
Assessment and Plan Cultures: 12/22/2020 blood culture: Streptococcus bovis, Prevotella 12/22/2020 PD fluid culture: No growth 12/24/2020 tracheal aspirate culture: No growth 12/24/2020 blood culture: No growth A/P: 60-year-old male with ESRD on PD, Crohn's disease, CHF, gastroesophageal reflux disease was admitted to the hospital with complaints of abdominal pain and fever: #Severe sepsis with shock: Secondary to small bowel obstruction/necrotic bowel with associated peritonitis. #Small bowel obstruction/necrotic bowel: with concern for PD associated peritonitis: Nephrology and general surgery following. Status post exploratory laparotomy on 12/23/2020 with extensive lysis, primary anastomosis, found to have necrotic segment of small bowel. PD catheter remains in place. #Streptococcus bovis bacteremia and Prevotella bacteremia: secondary to above. TTE without obvious vegetations. #ESRD: Renally dose antibiotics. Used to be on PD, cath remains in place. Now on HD. #Elevated LFTs: Secondary to sepsis. #Acute respiratory failure: extubated, then re-intubated 12/31/2020. Recs: -If leukocytosis continues to rise, consider CT abdomen and pelvis -Unasyn escalated to Zosyn, renally dosed -Continue fluconazole for now -tentative end date for bacteremia treatment: 01/06/2021, however, may need to extend dependingon clinical course Yesika Denny MD, FACP [facility] ([facility] O: [phone] F: [phone] Subjective Date of service: 12/31/20 Principal diagnosis: Ac hypoxemic resp failure; Severe Sepsis; Peritonitis; Acute SBO; ESRD; CHF Interval history: No fever. Patient reintubated. Also hypotensive, on pressors. Objective - Exam Narrative Exam: Physical Exam: Constitutional: sedated, intubated Head, Ears, Nose: Normocephalic, atraumatic. External ears, nose normal Eyes: Conjunctivae/corneas clear. No icterus. No ptosis. Neck: intubated Cardiovascular: S1, S2 + Respiratory: AE fair bilaterally GI: distended, midline incision, PD catheter present, bowel sounds -ve Musculoskeletal: No pedal edema, no cyanosis. Skin: No rash or abscess Hem/Lymphatic: No palpable cervical or supraclavicular nodes. No lymphangitis Psych: no agitation Neurological: sedated, intubated - Constitutional Vitals: Vital Signs Temp Pulse Resp BP Pulse Ox 99.7 F H 112 H 40 H 70/49 99 12/30/20 16:00 12/31/20 07:50 12/31/20 07:41 12/31/20 07:50 12/31/20 07:50 Temperature -Last 24 Hours Temperature 99.7 F Temperature 98.6 F Temperature 99.1 F - Labs CBC & Chem 7: 12/31/20 06:51 12/31/20 06:51 Labs: Abnormal lab results 12/30/20 12/30/20 12/30/20 Range/Units 08:15 11:53 15:49 WBC (4.5-11.0) K/mm3 RBC (3.65-5.03) M/mm3 Hgb (11.8-15.2) gm/dl Hct (35.5-45.6) % RDW (13.2-15.2) % POC ABG pO2 (83-108) mmHg ABG pO2 (80.0-90.0) mm Hg ABG O2 Saturation (95.0-99.0) % ABG Hemoglobin (12.0-17.5) ABG Oxyhemoglobin (94-98) ABG Sodium (136.0-145.0) mmol/L ABG Glucose (65-95) mg/dL Potassium (3.6-5.0) mmol/L BUN (9-20) mg/dL Creatinine (0.8-1.3) mg/dL Glucose (75-100) mg/dL POC Glucose 127 H 155 H 146 H (70-105) mg/dL Magnesium (1.7-2.3) mg/dL Arterial Blood Glucose (65-95) mg/dL 12/30/20 12/30/20 12/31/20 Range/Units 17:53 23:45 03:56 WBC (4.5-11.0) K/mm3 RBC (3.65-5.03) M/mm3 Hgb (11.8-15.2) gm/dl Hct (35.5-45.6) % RDW (13.2-15.2) % POC ABG pO2 49.4 L (83-108) mmHg ABG pO2 (80.0-90.0) mm Hg ABG O2 Saturation (95.0-99.0) % ABG Hemoglobin 10.3 L (12.0-17.5) ABG Oxyhemoglobin 84.2 L (94-98) ABG Sodium 133.1 L (136.0-145.0) mmol/L ABG Glucose 173 H (65-95) mg/dL Potassium (3.6-5.0) mmol/L BUN (9-20) mg/dL Creatinine (0.8-1.3) mg/dL Glucose (75-100) mg/dL POC Glucose 139 H 173 H (70-105) mg/dL Magnesium (1.7-2.3) mg/dL Arterial Blood Glucose 173 H (65-95) mg/dL 12/31/20 12/31/20 12/31/20 Range/Units 05:07 06:51 06:51 WBC 20.3 H (4.5-11.0) K/mm3 RBC 3.32 L (3.65-5.03) M/mm3 Hgb 9.8 L (11.8-15.2) gm/dl Hct 30.3 L D (35.5-45.6) % RDW 17.3 H (13.2-15.2) % POC ABG pO2 (83-108) mmHg ABG pO2 (80.0-90.0) mm Hg ABG O2 Saturation (95.0-99.0) % ABG Hemoglobin (12.0-17.5) ABG Oxyhemoglobin (94-98) ABG Sodium (136.0-145.0) mmol/L ABG Glucose (65-95) mg/dL Potassium 5.2 H D (3.6-5.0) mmol/L BUN 62 H (9-20) mg/dL Creatinine 8.4 H (0.8-1.3) mg/dL Glucose 116 H (75-100) mg/dL POC Glucose 120 H (70-105) mg/dL Magnesium 1.60 L (1.7-2.3) mg/dL Arterial Blood Glucose (65-95) mg/dL 12/31/20 Range/Units 09:38 WBC (4.5-11.0) K/mm3 RBC (3.65-5.03) M/mm3 Hgb (11.8-15.2) gm/dl Hct (35.5-45.6) % RDW (13.2-15.2) % POC ABG pO2 (83-108) mmHg ABG pO2 354.0 H (80.0-90.0) mm Hg ABG O2 Saturation 99.6 H (95.0-99.0) % ABG Hemoglobin 9.1 L (12.0-17.5) ABG Oxyhemoglobin (94-98) ABG Sodium (136.0-145.0) mmol/L ABG Glucose (65-95) mg/dL Potassium (3.6-5.0) mmol/L BUN (9-20) mg/dL Creatinine (0.8-1.3) mg/dL Glucose (75-100) mg/dL POC Glucose (70-105) mg/dL Magnesium (1.7-2.3) mg/dL Arterial Blood Glucose (65-95) mg/dL - Imaging and cardiology Chest x-ray: report reviewed, image reviewed (no pneumonia seen)
[2020-12-31 11:31] LABS: Total Cells Counted 100
[2020-12-31 11:33] LABS: Ovalocytes Rare; Platelet Estimate Consistent w Auto
--- NOTE | 2020-12-31 11:49 | Progress Note ---
Assessment and Plan POD#8 s/p ex lap with extensive lysis of adhesions and two small bowel resections with primary anastamosis for SBO with necrotic segement small bowel. Re-intubated for respiratory failure with tachycardia and leukocytosis of 20 of unclear etiology. - continue supportive care and if continued elevated wbc will get abdominal CT tomorrow. - showing clinical signs of resolving ileus. also confirmed improvement on x- ray. - resume LIWS of OGT today. - ESRD -DD dialysis per nephrology - continue abx Subjective Date of service: 12/31/20 Narrative: Pt was intubated overnight for respiratory distress. several bowel movements since yesterday afternoon. Abdominal x-ray shows normal bowel gas pattern and no free air. NGT replaced. Objective Vital Signs - 12hr 12/31/20 12/31/20 12/31/20 00:00 00:30 00:31 Pulse Rate 118 H 113 H Pulse Rate [ 115 H From Monitor] Respiratory 46 H 38 H 41 H Rate Blood Pressure 147/93 147/93 O2 Sat by Pulse 96 99 Oximetry 12/31/20 12/31/20 12/31/20 01:00 01:06 01:07 Pulse Rate 123 H 122 H 122 H Pulse Rate [ From Monitor] Respiratory 41 H Rate Blood Pressure 147/93 147/93 147/93 O2 Sat by Pulse Oximetry 12/31/20 12/31/20 12/31/20 01:31 02:01 02:31 Pulse Rate 104 H 110 H 112 H Pulse Rate [ From Monitor] Respiratory 52 H 52 H 61 H Rate Blood Pressure 147/93 147/93 147/93 O2 Sat by Pulse 92 97 96 Oximetry 12/31/20 12/31/20 12/31/20 02:55 03:01 03:31 Pulse Rate 109 H 107 H 108 H Pulse Rate [ From Monitor] Respiratory 49 H 45 H 42 H Rate Blood Pressure 147/93 147/93 147/93 O2 Sat by Pulse 98 98 97 Oximetry 12/31/20 12/31/20 12/31/20 04:00 04:01 04:31 Pulse Rate 119 H 113 H 123 H Pulse Rate [ 119 H From Monitor] Respiratory 59 H 40 H 58 H Rate Blood Pressure 147/93 147/93 O2 Sat by Pulse 96 99 96 Oximetry 12/31/20 12/31/20 12/31/20 05:01 05:31 05:47 Pulse Rate 130 H 126 H 127 H Pulse Rate [ From Monitor] Respiratory 52 H 56 H Rate Blood Pressure 147/93 147/93 147/93 O2 Sat by Pulse 96 96 Oximetry 12/31/20 12/31/20 12/31/20 06:01 06:31 06:43 Pulse Rate 113 H 118 H 116 H Pulse Rate [ From Monitor] Respiratory 58 H 17 Rate Blood Pressure 147/93 114/59 131/78 O2 Sat by Pulse 95 100 98 Oximetry 12/31/20 12/31/20 12/31/20 07:00 07:31 07:41 Pulse Rate 117 H 125 H Pulse Rate [ From Monitor] Respiratory 36 H 38 H 40 H Rate Blood Pressure 89/55 99/47 O2 Sat by Pulse 97 100 Oximetry 12/31/20 07:50 Pulse Rate 112 H Pulse Rate [ From Monitor] Respiratory Rate Blood Pressure 70/49 O2 Sat by Pulse 99 Oximetry - General physical appearance no distress, no pain - Respiratory normal expansion, normal respiratory effort, other (intubbated) - Abdomen soft, distended, not rigid, other (NGT with light bilious drainage. staple line c/d/i) - Labs 12/31/20 06:51 12/31/20 06:51 Diabetes panel 12/31/20 Range/Units 06:51 Sodium 139 (137-145) mmol/L Potassium 5.2 H D (3.6-5.0) mmol/L Chloride 99.1 (98-107) mmol/L Carbon Dioxide 24 (22-30) mmol/L BUN 62 H (9-20) mg/dL Creatinine 8.4 H (0.8-1.3) mg/dL Glucose 116 H (75-100) mg/dL Calcium 8.8 (8.4-10.2) mg/dL Calcium panel 12/31/20 Range/Units 06:51 Calcium 8.8 (8.4-10.2) mg/dL Phosphorus 2.80 (2.5-4.5) mg/dL Pituitary panel 12/31/20 Range/Units 06:51 Sodium 139 (137-145) mmol/L Potassium 5.2 H D (3.6-5.0) mmol/L Chloride 99.1 (98-107) mmol/L Carbon Dioxide 24 (22-30) mmol/L BUN 62 H (9-20) mg/dL Creatinine 8.4 H (0.8-1.3) mg/dL Glucose 116 H (75-100) mg/dL Calcium 8.8 (8.4-10.2) mg/dL Adrenal panel 12/31/20 Range/Units 06:51 Sodium 139 (137-145) mmol/L Potassium 5.2 H D (3.6-5.0) mmol/L Chloride 99.1 (98-107) mmol/L Carbon Dioxide 24 (22-30) mmol/L BUN 62 H (9-20) mg/dL Creatinine 8.4 H (0.8-1.3) mg/dL Glucose 116 H (75-100) mg/dL Calcium 8.8 (8.4-10.2) mg/dL
--- NOTE | 2020-12-31 11:55 | Progress Note ---
Assessment and Plan Assessment: - ESRD on peritoneal dialysis. He has been on peritoneal dialysis for the past 2 years. No history of peritonitis. - Abdominal pain. CT scan without organ perforation. Likely peritonitis related complications - small bowel obstruction s/p exp, necrotic bowel - Hypertension - Hyperkalemia - Anemia of ESRD - Hyperglycemia - severe sepsis - gram positive cocci bacteremia - Postoperative ileus - respiratory failure on vent, now re-intubated - a-fib, new onset Plan: - transitioned to HD, continue HD MWF or prn, no indication for HD per labs, hypotension - appreciate vascular for permacath placement [facility]J on 12/27; pulm removed RIJ vascath 12/28 - continue IV empiric abx per ID - s/p ex lap, now off PD, will not be able to continue pd with adhesion and sbo s/p resection - uf as tolerated with HD - will need outpatient hd placement once stable - stopped binders and sensipar - strict i/os - keep MAP >65 - continue albumin IV - monitor electrolytes daily - appreciate multidisplinary approach to care from surgery, ID, pulm input - a-fib management per cardiology Subjective Date of service: 12/31/20 Principal diagnosis: Ac hypoxemic resp failure; Severe Sepsis; Peritonitis; Acute SBO; ESRD; CHF Interval history: Transferred back to ICU for respiratory failure, now intubated, sedated on Diprivan, on Levophed at 8mcg Objective - Exam Narrative Exam: - General Limitations: Physical Limitation General appearance: sedated, intubated - Head Head exam: Present: atraumatic, normocephalic - Eye Eye exam: Present: normal appearance, EOMI - ENT ENT exam: Present: ET tube - Neck Neck exam: Present: normal inspection - Respiratory Respiratory exam: mechanical breath sounds - Cardiovascular Cardiovascular Exam: Present: normal rhythm, tachycardia - GI/Abdominal GI/Abdominal exam: Present: soft, distended (slightly), tenderness (periumbilical ) - Extremities Exam Extremities exam: Present: normal inspection; LIJ CVC noted - Neurological Exam Neurological exam: sedated - Psychiatric Psychiatric exam: opens eyes - Skin Skin exam: Present: warm, dry, intact, normal color - Vital Signs Vital signs: Vital Signs - 12hr 12/31/20 12/31/20 12/31/20 00:00 00:30 00:31 Pulse Rate 118 H 113 H Pulse Rate [ 115 H From Monitor] Respiratory 46 H 38 H 41 H Rate Blood Pressure 147/93 147/93 O2 Sat by Pulse 96 99 Oximetry 12/31/20 12/31/20 12/31/20 01:00 01:06 01:07 Pulse Rate 123 H 122 H 122 H Pulse Rate [ From Monitor] Respiratory 41 H Rate Blood Pressure 147/93 147/93 147/93 O2 Sat by Pulse Oximetry 12/31/20 12/31/20 12/31/20 01:31 02:01 02:31 Pulse Rate 104 H 110 H 112 H Pulse Rate [ From Monitor] Respiratory 52 H 52 H 61 H Rate Blood Pressure 147/93 147/93 147/93 O2 Sat by Pulse 92 97 96 Oximetry 12/31/20 12/31/20 12/31/20 02:55 03:01 03:31 Pulse Rate 109 H 107 H 108 H Pulse Rate [ From Monitor] Respiratory 49 H 45 H 42 H Rate Blood Pressure 147/93 147/93 147/93 O2 Sat by Pulse 98 98 97 Oximetry 12/31/20 12/31/20 12/31/20 04:00 04:01 04:31 Pulse Rate 119 H 113 H 123 H Pulse Rate [ 119 H From Monitor] Respiratory 59 H 40 H 58 H Rate Blood Pressure 147/93 147/93 O2 Sat by Pulse 96 99 96 Oximetry 12/31/20 12/31/20 12/31/20 05:01 05:31 05:47 Pulse Rate 130 H 126 H 127 H Pulse Rate [ From Monitor] Respiratory 52 H 56 H Rate Blood Pressure 147/93 147/93 147/93 O2 Sat by Pulse 96 96 Oximetry 12/31/20 12/31/20 12/31/20 06:01 06:31 06:43 Pulse Rate 113 H 118 H 116 H Pulse Rate [ From Monitor] Respiratory 58 H 17 Rate Blood Pressure 147/93 114/59 131/78 O2 Sat by Pulse 95 100 98 Oximetry 12/31/20 12/31/20 12/31/20 07:00 07:31 07:41 Pulse Rate 117 H 125 H Pulse Rate [ From Monitor] Respiratory 36 H 38 H 40 H Rate Blood Pressure 89/55 99/47 O2 Sat by Pulse 97 100 Oximetry 12/31/20 07:50 Pulse Rate 112 H Pulse Rate [ From Monitor] Respiratory Rate Blood Pressure 70/49 O2 Sat by Pulse 99 Oximetry - Lab 12/31/20 06:51 12/31/20 06:51 Most recent lab results ABG pH 7.430 pH Units (7.350-7.450) 12/31/20 09:38 ABG pCO2 33.9 mm Hg 12/31/20 09:38 ABG pO2 354.0 mm Hg (80.0-90.0) H 12/31/20 09:38 ABG HCO3 22.0 mmol/L (20.0-26.0) 12/31/20 09:38 ABG O2 Saturation 99.6 % (95.0-99.0) H 12/31/20 09:38 Calcium 8.8 mg/dL (8.4-10.2) 12/31/20 06:51 Phosphorus 2.80 mg/dL (2.5-4.5) 12/31/20 06:51 Magnesium 1.60 mg/dL (1.7-2.3) L 12/31/20 06:51 Medications & Allergies - Medications Allergies/Adverse Reactions: Allergies No Known Allergies Allergy (Verified 06/09/20 15:27) Home Medications: Home Medications Medication Instructions Recorded Confirmed Last Taken Type Albuterol Mdi (or & Nicu Only) 2 puff IH QID PRN #1 inhalation 04/01/17 11/01/20 10/31/20 09:00 Rx [ProAir HFA Inhaler] Calcium Acetate 667 mg PO DAILY 04/20/20 11/01/20 10/31/20 09:00 History Centrum Men's Tablet 1 tab PO DAILY 04/20/20 11/01/20 10/31/20 09:00 History Cinacalcet 30 mg PO DAILY 04/20/20 11/01/20 10/31/20 09:00 History Dialyvite with Zinc Tablet 1 tab PO DAILY 04/20/20 11/01/20 10/31/20 09:00 History Magnesium 250 mg PO BID 04/20/20 11/01/20 10/31/20 17:00 History Triamcinolone 0.1% 1 1000units TRANSDERMA DAILY 04/20/20 11/01/20 10/31/20 09:00 History Vit B12/Folic Acid/B6/Aa No.15 1,000 mg PO DAILY 04/20/20 11/01/20 10/31/20 09:00 History amLODIPine 10 mg PO DAILY 06/09/20 11/01/20 10/31/20 09:00 History AtorvaSTATin 40 mg PO HS 11/01/20 11/01/20 10/31/20 21:00 History Benadryl 25 mg PO HS 11/01/20 11/01/20 10/31/20 21:00 History Diclofenac 1 TRANSDERMA QID 11/01/20 10/31/20 19:00 History Fluticasone Propionate 1 spray INTRANASAL DAILY 11/01/20 11/01/20 10/31/20 09:00 History Vitamin D3 2,000 units 11/01/20 10/31/20 09:00 History carvediloL 12.5 mg PO DAILY 11/01/20 11/01/20 10/31/20 09:00 History hydrALAZINE 100 mg PO TID 11/01/20 11/01/20 10/31/20 19:00 History Active Medications: Generic Name Dose Route Start Last Admin Trade Name Freq PRN Reason Stop Dose Admin Albuterol 2.5 mg 12/22/20 19:42 Albuterol 2.5 Mg/3 Ml Nebu IH Q4HRT PRN Shortness Of Breath Digoxin 0.125 mg 12/31/20 10:00 Digoxin 0.5 Mg/2 Ml Inj IV Q48HR THOMAS Famotidine 10 mg 12/24/20 13:00 12/31/20 09:46 Famotidine 20 Mg/2 Ml Inj IV 10 mg BID THOMAS Administration Fentanyl 50 mcg 12/24/20 11:35 12/31/20 07:41 Fentanyl 100 Mcg/2 Ml Inj IV 50 mcg Q10MIN PRN Administration ANALGESIA Haloperidol Lactate 5 mg 12/29/20 14:16 12/31/20 00:19 Haloperidol Lactate 5 Mg/1 Ml Inj IV 5 mg Q12H PRN Administration Agitation Heparin Sodium (Porcine) 5,000 unit 12/24/20 10:00 12/31/20 09:42 Heparin 5,000 Unit/1 Ml Vial SUB-Q 5,000 unit Q12HR THOMAS Administration Hydralazine HCl 10 mg 12/30/20 12:00 12/31/20 05:47 Hydralazine 20 Mg/1 Ml Inj IV 10 mg Q4HR THOMAS Administration Hydrophilic Ointment 1 applic 12/31/20 06:39 Lip Therapy Vaseline TP Q2HR PRN Dry Lips Sodium Chloride 100 mls @ 999 mls/hr 12/23/20 11:03 Nacl 0.9% IV [place] PRN Hypotension Propofol 1,000 mg in 100 mls @ 5.484 mls/hr 12/23/20 19:00 12/31/20 09:47 Diprivan 10 Mg/Ml IV 5 mcg/kg/min TITR THOMAS 2.742 mls/hr Administration Protocol 10 MCG/KG/MIN Fluconazole 200 mg in 100 mls @ 100 mls/hr 12/27/20 13:00 12/30/20 13:31 Diflucan IV 100 mls/hr Q24H THOMAS Administration Protocol Amino Acids/Electrolytes/Dextrose 2,016 mls @ 84 mls/hr 12/30/20 20:00 12/30/20 21:04 Tpn Adult IV 12/31/20 19:59 84 mls/hr DAILY@2000 [facility] Administration Protocol Fentanyl Citrate 2,000 mcg in 100 mls @ 4.725 mls/hr 12/31/20 08:00 Fentanyl Drip Premix IV TITR THOMAS Protocol 1 MCG/KG/HR NORepinephrine/NS 8 MG-250 ML 8 mg in 250 mls @ 3.75 mls/hr 12/31/20 09:00 12/31/20 08:45 Norepinephrine/Ns 8 Mg-250 Ml (Double Conc) IV 8 mcg/min TITRATE THOMAS 15 mls/hr Titration Protocol 2 MCG/MIN Piperacillin Sod/Tazobactam Sod 2.25 gm in 50 mls @ 100 mls/hr 12/31/20 12:00 Zosyn/Ns 2.25 Gm/50ml IV Q8H [facility] Protocol Metoprolol Tartrate 5 mg 12/30/20 12:00 12/31/20 05:47 Metoprolol Tartrate 5 Mg/5 Ml Inj IV 5 mg Q4HR THOMAS Administration Morphine Sulfate 2 mg 12/23/20 10:00 12/31/20 02:33 Morphine 2 Mg/1 Ml Inj IV 2 mg Q4H PRN Administration Pain, Moderate (4-6) Multi-Ingred Cream/Lotion/Oil/Oint 1 applic 12/31/20 06:39 Mineral Oil/Petrolatum, White Ophth Oint 3.5 Gm OU Q4HR PRN Dry Eye(s) Ondansetron HCl 4 mg 12/22/20 19:42 12/31/20 02:36 Ondansetron 4 Mg/2 Ml Inj IV 4 mg Q8H PRN Administration Nausea And Vomiting Scopolamine 1 each 12/28/20 16:00 12/28/20 15:41 Scopolamine Transdermal Patch 72 Hr TD 1 each Q72H THOMAS Administration Sodium Chloride 10 ml 12/22/20 22:00 12/30/20 21:40 Sodium Chloride 0.9% 10 Ml Flush Syringe IV 10 ml BID THOMAS Administration Sodium Chloride 10 ml 12/22/20 19:42 Sodium Chloride 0.9% 10 Ml Flush Syringe IV PRN PRN LINE FLUSH
--- NOTE | 2020-12-31 12:19 | Progress Note ---
Assessment and Plan - Patient Problems (1) Atrial fibrillation Current Visit: Yes Status: Acute Plan to address problem: 60-year-old man with a history of a nonischemic cardiomyopathy, status post expiratory laparotomy for small bowel obstruction, developed new onset rapid atrial fibrillation. He has returned to a stable sinus rhythm on medical therapy. Patient is not a candidate for anticoagulation at this time due to his postoperative status and the presence of severe anemia with hematocrit currently 21-22. An echocardiogram on this presentation shows normal left ventricular systolic function with ejection fraction 55%, normalized from 30 to 35% several years ago. We will continue medical therapy as tolerated. Subjective Date of service: 12/31/20 Principal diagnosis: Ac hypoxemic resp failure; Severe Sepsis; Peritonitis; Acute SBO; ESRD; CHF Interval history: Patient is back intubated, on the ventilator. He is sedated at the current time, on patient monitor is in a stable sinus rhythm. Objective Vital Signs Temp Pulse Pulse Resp Resp BP Pulse Ox 12/31/20 12:01 120 H 31 H 91/59 100 12/31/20 12:00 114 H 34 H 96 12/31/20 11:31 126 H 38 H 91/59 99 12/31/20 11:01 122 H 37 H 91/59 99 12/31/20 10:31 124 H 40 H 91/59 98 12/31/20 10:14 114 H 76/46 12/31/20 10:12 114 H 74/46 12/31/20 10:01 118 H 35 H 91/59 100 12/31/20 09:31 115 H 34 H 76/46 98 12/31/20 09:00 111 H 35 H 34 H 70/49 98 12/31/20 08:41 34 H 12/31/20 08:30 113 H 31 H 64/39 99 12/31/20 08:00 120 H 119 H 31 H 96/58 100 12/31/20 07:50 112 H 70/49 99 12/31/20 07:41 40 H 12/31/20 07:31 125 H 38 H 99/47 100 12/31/20 07:00 117 H 36 H 89/55 97 12/31/20 06:43 116 H 131/78 98 12/31/20 06:31 118 H 17 114/59 100 12/31/20 06:01 113 H 58 H 147/93 95 12/31/20 05:47 127 H 147/93 12/31/20 05:31 126 H 56 H 147/93 96 12/31/20 05:01 130 H 52 H 147/93 96 12/31/20 04:31 123 H 58 H 147/93 96 12/31/20 04:01 113 H 40 H 147/93 99 12/31/20 04:00 119 H 119 H 59 H 96 12/31/20 03:31 108 H 42 H 147/93 97 12/31/20 03:01 107 H 45 H 147/93 98 12/31/20 02:55 109 H 49 H 147/93 98 12/31/20 02:31 112 H 61 H 147/93 96 12/31/20 02:01 110 H 52 H 147/93 97 12/31/20 01:31 104 H 52 H 147/93 92 12/31/20 01:07 122 H 147/93 12/31/20 01:06 122 H 147/93 12/31/20 01:00 123 H 41 H 147/93 12/31/20 00:31 41 H 12/31/20 00:30 113 H 38 H 147/93 99 12/31/20 00:00 118 H 115 H 46 H 147/93 96 12/30/20 23:32 117 H 49 H 147/93 100 12/30/20 23:30 114 H 50 H 147/93 99 12/30/20 23:04 113 H 38 H 147/93 99 12/30/20 23:00 109 H 43 H 161/90 95 12/30/20 22:33 41 H 12/30/20 22:30 101 H 47 H 161/90 96 12/30/20 22:00 101 H 44 H 161/90 98 12/30/20 21:38 110 H 161/90 12/30/20 21:35 105 H 161/90 12/30/20 21:30 110 H 50 H 161/90 96 12/30/20 21:00 108 H 49 H 161/90 12/30/20 20:30 101 H 35 H 161/90 12/30/20 20:00 98 H 97 H 39 H 161/90 98 12/30/20 19:30 95 H 28 H 161/90 100 12/30/20 19:00 93 H 28 H 161/90 100 12/30/20 18:30 106 H 30 H 161/90 85 12/30/20 18:00 94 H 23 161/90 99 12/30/20 17:30 99 H 26 H 161/90 99 12/30/20 17:00 95 H 30 H 161/90 99 12/30/20 16:30 102 H 40 H 161/90 94 12/30/20 16:00 99.7 F H 96 H 31 H 161/90 95 12/30/20 15:30 97 H 34 H 161/90 12/30/20 15:00 85 21 161/90 96 12/30/20 14:30 89 29 H 161/90 97 12/30/20 14:00 84 22 161/90 98 12/30/20 13:50 98.6 F 88 24 161/90 12/30/20 13:40 86 147/95 12/30/20 13:30 85 24 167/92 96 12/30/20 13:15 86 166/94 12/30/20 13:00 98 H 33 H 160/93 95 12/30/20 12:45 88 147/87 12/30/20 12:30 87 23 151/88 95 12/30/20 12:24 99.1 F - Physical Examination General: Other (Sedated, on the vent) HEENT: Positive: PERRL Neck: Positive: neck supple Cardiac: Positive: Reg Rate and Rhythm Lungs: Positive: Decreased Breath Sounds Neuro: Positive: Weakness (Sedated, on the vent) Abdomen: Positive: Soft Skin: Positive: Clear Extremities: Absent: edema - Labs and Meds CBC 12/31/20 Range/Units 06:51 WBC 20.3 H (4.5-11.0) K/mm3 RBC 3.32 L (3.65-5.03) M/mm3 Hgb 9.8 L (11.8-15.2) gm/dl Hct 30.3 L D (35.5-45.6) % Plt Count 272 (140-440) K/mm3 Comprehensive Metabolic Panel 12/31/20 Range/Units 06:51 Sodium 139 (137-145) mmol/L Potassium 5.2 H D (3.6-5.0) mmol/L Chloride 99.1 (98-107) mmol/L Carbon Dioxide 24 (22-30) mmol/L BUN 62 H (9-20) mg/dL Creatinine 8.4 H (0.8-1.3) mg/dL Glucose 116 H (75-100) mg/dL Calcium 8.8 (8.4-10.2) mg/dL - Allied health notes Allied health notes reviewed: nursing
[2020-12-31] MEDS: PIPERACIL-TAZO 2.25 GM/50 ML 2.25 GM/50 ML BAG IV SCH ×2 (12:21→23:15)
[2020-12-31] MEDS: FLUCONAZOLE 200 MG 200 MG/100 ML BAG IV SCH (13:04)
--- NOTE | 2020-12-31 13:50 | Progress Note ---
Assessment and Plan Assessment and plan: This is a 60-year-old male with ESRD on peritoneal dialysis, Crohn's, hypertension, systolic CHF (EF 35%) who was admitted with sepsis, peritonitis, small bowel obstruction and now has gram-positive cocci bacteremia. Sepsis Streptococcus bovis bacteremia/Prevotella bacteremia Gwendolyn albicans tracheal aspirate Small bowel obstruction/necrotic bowel s/p ex lap with extensive lysis of adhesions, 2 small bowel resections with primary anastomosis Acute hypoxic respiratory failure Postoperative ileus Atrial fibrillation with RVR Gwendolyn albicans in tracheal aspirate from 12/24 ESRD on PD, PermCath to be placed Transaminitis Systolic CHF(EF 35%) Crohn's disease Hypertension Hypokalemia -[facility], surgery, infectious disease, nephrology, vascular surgery, cardiology consulted, appreciate recommendations -S/p ex lap with extensive expectations, 2 small bowel resections with primary anastomosis with surgery on 12/23 -s/p PICC and Permacath placement with vascular surgery on 12/27 -Extubated on 12/28, reintubated 12/31 for respiratory distress -Vasopressor support with Levophed -Transitioned to HD from PD -HD per nephro -NPO -PPN -NGT to LIS -IV antibiotics -12/29 echocardiogram shows moderate concentric LVH, small pericardial effusion, transmitral Doppler flow pattern is grade 1 abnormal relaxation pattern, left- ventricular systolic function normal, LVEF 50 to 55%, no wall motion abnormalities. -Tobacco abuse cessation counseling -Trend CBC, BMP -Per ID if leukocytosis persists obtain CT abdomen/pelvis without contrast. DVT/GI prophylaxis: PPI, heparin subcu, SCDs to bilateral lower extremities while in bed Disposition: ICU Critical care statement The high probability of a clinically significant, sudden or life threatening deterioration of the [pulmonary, cardiac, neuro, renal] system(s) required my full and direct attention, intervention and personal management. The aggregate critical care time was [35] minutes. This time is in addition to time spent performing reported procedures but includes the following: [x] Data Review and interpretation [x] Patient assessment and monitoring of vital signs [x] Documentation [x] Medication orders and management History Interval history: This is a 60 YO Male with ESRD on PD, GERD, Crohn's Disease, Nicotine Dependence, HTN, Systolic CHF(EF 35%) who presented to the emergency department on 12/22 with complaints of abdominal pain which began shortly after eating fast food rated 10/10 which is periumbilical, constant, associated with fever, nausea and multiple sites of vomiting and self-reported inability to undergo PD. In the emergency room patient underwent a CT scan of the abdomen/pelvis which revealed evidence of partial small bowel obstruction, symptoms were consistent with bacterial peritonitis. Patient was admitted to the hospital service with sepsis, peritonitis, and small bowel obstruction with consults to general surgery, nephrology, infectious disease and [facility]. 12/23. Patient had temperature 101.2 F, tachycardia and elevated lactic acid on admission. Meet sepsis criteria. Started on IV antibiotics. ID has been consulted. Surgery consulted this a.m.-advised laparoscopy. He remains on NG tube connected to suction. 12/24. Patient was noted to have peritonitis yesterday and patient undergoing exploratory laparotomy. Patient remained intubated after procedure and is in ICU. Now on broad-spectrum antibiotics. ID on board. 12/25. Remains mechanically ventilated and sedated. Temp 103 Fahrenheit. Antibiotics broadened-ID added fluconazole and Flagyl. Blood cultures ordered. Plan to repeat CT abdomen tomorrow if not better. Surgery following. 12/26: Patient remains on mechanical ventilation on CMV tidal line 550, rate of 14, PEEP of 8 and 30% FiO2 and sedated on fentanyl 4 micrograms. Today we will remove his Jeffery and CCM dropped his rate controlled him on CPAP. We will trend CBC given recent drop in H/H. 12/27: Patient remains intubated on CMV tidal volume 550, rate 12, PEEP 8 on 30% FiO2 at the time my examination. Patient's TPN will be changed to PPN. Patient's fentanyl drip will be changed to IV push fentanyl and have a permacath placed today and midline. Patient was placed on a spontaneous breathing trial was switched back to CMV prior to procedure. 12/28: Patient on fentanyl but awake and follows commands. At the time of my examination he was on a CPAP trial and is scheduled to receive HD today. s/o permacath and PICC placement with vascular yesterday. His blood culture grew Prevotella and addition to Streptococcus bovis. This evening Dr. Spicer attempted to extubate the patient and his heart rate went to the 180s. Stat EKG obtained and cardiology consulted. 12/29: Patient was started on amiodarone IV for A. fib RVR yesterday and today he is more rate controlled into the 70s and 80s. Patient was extubated yesterday and is currently on Ventimask. Patient will be transferred to IM. Patient continues to be n.p.o. with TPN and NG tube to [facility]. He is hypokalemic today which was repleted. 12/30; patient was on IV amiodarone for treatment with RVR, rate is controlled. Patient was off oxygen. patient is n.p.o. and on TPN. Surgery is following the patient. 12/31: Patient was intubated overnight for respiratory distress and this morning on examination he was on assist control tidal volume 450, rate 20, PEEP 6, 100% FiO2 and RT was getting a ABG to adjust vent settings. Patient had a acute bump in WBC and per ID recommendations we will obtain a CT abdomen/pelvis if leukocytosis persist. Patient is on TPN and sedated with Levophed. Patient is also on vasopressor support with Levophed. Per surgery his ileus is resolving however the like to maintain OGT to [facility]. Hospitalist Physical - Constitutional Vitals: Temp Pulse Resp BP Pulse Ox 99.7 F H 120 H 31 H 91/59 100 12/30/20 16:00 12/31/20 12:01 12/31/20 12:01 12/31/20 12:01 12/31/20 12:01 General appearance: Present: no acute distress, other (Sedated on mechanical ventilation) - EENT Eyes: Present: PERRL, EOM intact - Neck Neck: Absent: masses or JVD, cervical LAD - Respiratory Respiratory effort: normal Respiratory: bilateral: diminished - Cardiovascular Rhythm: irregularly irregular Heart Sounds: Present: S1 & S2. Absent: systolic murmur, diastolic murmur - Extremities Extremities: no ischemia, pulses intact, pulses symmetrical, normal temperature, normal color Peripheral Pulses: within normal limits - Abdominal General gastrointestinal: soft, non-tender, distended, hypoactive bowel sounds - Integumentary Integumentary: Present: warm, dry - Psychiatric Psychiatric: other (Sedated) - Neurologic Neurologic: other (Sedated) - Allied Health Allied health notes reviewed: nursing, RT HEART Score - HEART Score Troponin: Troponin T 0.021 ng/mL (0.00-0.029) 12/22/20 14:38 Results - Labs CBC & Chem 7: 12/31/20 06:51 12/31/20 12:22 Labs: Laboratory Last Values WBC 20.3 K/mm3 (4.5-11.0) H 12/31/20 06:51 RBC 3.32 M/mm3 (3.65-5.03) L 12/31/20 06:51 Hgb 9.8 gm/dl (11.8-15.2) L 12/31/20 06:51 Hct 30.3 % (35.5-45.6) L D 12/31/20 06:51 MCV 92 fl (84-94) 12/31/20 06:51 MCH 30 pg (28-32) 12/31/20 06:51 MCHC 32 % (32-34) 12/31/20 06:51 RDW 17.3 % (13.2-15.2) H 12/31/20 06:51 Plt Count 272 K/mm3 (140-440) 12/31/20 06:51 Lymph % (Auto) 6.5 % (13.4-35.0) L 12/28/20 05:40 Telfair % (Auto) 16.7 % (0.0-7.3) H 12/28/20 05:40 Eos % (Auto) 3.2 % (0.0-4.3) 12/28/20 05:40 Baso % (Auto) 1.0 % (0.0-1.8) 12/28/20 05:40 Lymph # (Auto) 0.3 K/mm3 (1.2-5.4) L 12/28/20 05:40 Telfair # (Auto) 0.7 K/mm3 (0.0-0.8) 12/28/20 05:40 Eos # (Auto) 0.1 K/mm3 (0.0-0.4) 12/28/20 05:40 Baso # (Auto) 0.0 K/mm3 (0.0-0.1) 12/28/20 05:40 Add Manual Diff Complete 12/31/20 06:51 Total Counted 100 12/31/20 06:51 Seg Neutrophils % 71.1 % (40.0-70.0) H 12/28/20 05:40 Seg Neuts % (Manual) 87.0 % (40.0-70.0) H 12/31/20 06:51 Band Neutrophils % 1.0 % 12/29/20 05:16 Lymphocytes % (Manual) 10.0 % (13.4-35.0) L 12/31/20 06:51 Reactive Lymphs % (Man) 1.0 % 12/29/20 05:16 Monocytes % (Manual) 3.0 % (0.0-7.3) 12/31/20 06:51 Eosinophils % (Manual) 2.0 % (0.0-4.3) 12/29/20 05:16 Metamyelocytes % 2.0 % 12/29/20 05:16 Nucleated RBC % Not Reportable 12/31/20 06:51 Seg Neutrophils # 3.1 K/mm3 (1.8-7.7) 12/28/20 05:40 Seg Neutrophils # Man 17.7 K/mm3 (1.8-7.7) H 12/31/20 06:51 Band Neutrophils # 0.0 K/mm3 12/31/20 06:51 Lymphocytes # (Manual) 2.0 K/mm3 (1.2-5.4) 12/31/20 06:51 Abs React Lymphs (Man) 0.0 K/mm3 12/31/20 06:51 Monocytes # (Manual) 0.6 K/mm3 (0.0-0.8) 12/31/20 06:51 Eosinophils # (Manual) 0.0 K/mm3 (0.0-0.4) 12/31/20 06:51 Basophils # (Manual) 0.0 K/mm3 (0.0-0.1) 12/31/20 06:51 Metamyelocytes # 0.0 K/mm3 12/31/20 06:51 Myelocytes # 0.0 K/mm3 12/31/20 06:51 Promyelocytes # 0.0 K/mm3 12/31/20 06:51 Blast Cells # 0.0 K/mm3 12/31/20 06:51 WBC Morphology Not Reportable 12/31/20 06:51 Hypersegmented Neuts Not Reportable 12/31/20 06:51 Hyposegmented Neuts Not Reportable 12/31/20 06:51 Hypogranular Neuts Not Reportable 12/31/20 06:51 Smudge Cells Not Reportable 12/31/20 06:51 Toxic Granulation Not Reportable 12/31/20 06:51 Toxic Vacuolation Not Reportable 12/31/20 06:51 Dohle Bodies Not Reportable 12/31/20 06:51 Pelger-Huet Anomaly Not Reportable 12/31/20 06:51 Lamar Rods Not Reportable 12/31/20 06:51 Platelet Estimate Consistent w auto 12/31/20 06:51 Clumped Platelets Not Reportable 12/31/20 06:51 Plt Clumps, EDTA Not Reportable 12/31/20 06:51 Large Platelets Not Reportable 12/31/20 06:51 Giant Platelets Not Reportable 12/31/20 06:51 Platelet Satelliting Not Reportable 12/31/20 06:51 Plt Morphology Comment Not Reportable 12/31/20 06:51 RBC Morphology Not Reportable 12/31/20 06:51 Dimorphic RBCs Not Reportable 12/31/20 06:51 Polychromasia Not Reportable 12/31/20 06:51 Hypochromasia Not Reportable 12/31/20 06:51 Poikilocytosis Not Reportable 12/31/20 06:51 Anisocytosis Not Reportable 12/31/20 06:51 Microcytosis Not Reportable 12/31/20 06:51 Macrocytosis Not Reportable 12/31/20 06:51 Spherocytes Not Reportable 12/31/20 06:51 Pappenheimer Bodies Not Reportable 12/31/20 06:51 Sickle Cells Not Reportable 12/31/20 06:51 Target Cells Not Reportable 12/31/20 06:51 Tear Drop Cells Not Reportable 12/31/20 06:51 Ovalocytes Rare 12/31/20 06:51 Helmet Cells Not Reportable 12/31/20 06:51 Washburn-Alleghany Bodies Not Reportable 12/31/20 06:51 Cranberry Rings Not Reportable 12/31/20 06:51 Cobb Cells Not Reportable 12/31/20 06:51 Bite Cells Not Reportable 12/31/20 06:51 Crenated Cell Not Reportable 12/31/20 06:51 Elliptocytes Not Reportable 12/31/20 06:51 Acanthocytes (Spur) Not Reportable 12/31/20 06:51 Rouleaux Not Reportable 12/31/20 06:51 Hemoglobin C Crystals Not Reportable 12/31/20 06:51 Schistocytes Not Reportable 12/31/20 06:51 Malaria parasites Not Reportable 12/31/20 06:51 Lucas Bodies Not Reportable 12/31/20 06:51 Hem Pathologist Commnt No 12/31/20 06:51 PT 13.8 Sec. (12.2-14.9) 12/22/20 14:38 INR 1.07 (0.87-1.13) 12/22/20 14:38 APTT 25.1 Sec. (24.2-36.6) 12/22/20 14:38 ABG pH 7.430 pH Units (7.350-7.450) 12/31/20 09:38 POC ABG pCO2 32.8 mmHg (32.0-48.0) 12/31/20 03:56 ABG pCO2 33.9 mm Hg 12/31/20 09:38 POC ABG pO2 49.4 mmHg (83-108) L 12/31/20 03:56 ABG pO2 354.0 mm Hg (80.0-90.0) H 12/31/20 09:38 POC ABG HCO3 22.1 12/31/20 03:56 ABG HCO3 22.0 mmol/L (20.0-26.0) 12/31/20 09:38 ABG O2 Saturation 99.6 % (95.0-99.0) H 12/31/20 09:38 ABG O2 Content 13.5 (0.0-44) 12/31/20 09:38 POC ABG Base Excess -1.0 12/31/20 03:56 ABG Base Excess -1.9 mmol/L (-2.0-3.0) 12/31/20 09:38 ABG Hemoglobin 9.1 gm/dl (14.0-18.0) L 12/31/20 09:38 ABG Oxyhemoglobin 84.2 (94-98) L 12/31/20 03:56 ABG Carboxyhemoglobin 1.0 % (0.0-5.0) 12/31/20 09:38 ABG Methemoglobin 0.6 % (0.0-1.5) 12/31/20 09:38 ABG Sodium 133.1 mmol/L (136.0-145.0) L 12/31/20 03:56 ABG Potassium 4.3 mmol/L (3.40-4.50) 12/31/20 03:56 ABG Chloride 101.0 mmol/L (98-107) 12/31/20 03:56 ABG Glucose 173 mg/dL (65-95) H 12/31/20 03:56 Oxyhemoglobin 97.9 % (95.0-99.0) 12/31/20 09:38 Carboxyhemoglobin 0.8 (0.5-1.5) 12/31/20 03:56 FiO2 100 % 12/31/20 09:38 FiO2 % 35.0 12/31/20 03:56 Sodium 139 mmol/L (137-145) 12/31/20 06:51 Potassium 5.2 mmol/L (3.6-5.0) H 12/31/20 12:22 Chloride 99.1 mmol/L (98-107) 12/31/20 06:51 Carbon Dioxide 24 mmol/L (22-30) 12/31/20 06:51 Anion Gap 21 mmol/L 12/31/20 06:51 BUN 62 mg/dL (9-20) H 12/31/20 06:51 Creatinine 8.4 mg/dL (0.8-1.3) H 12/31/20 06:51 Estimated GFR 8 ml/min 12/31/20 06:51 BUN/Creatinine Ratio 7 % 12/31/20 06:51 Glucose 116 mg/dL (75-100) H 12/31/20 06:51 POC Glucose 132 mg/dL (70-105) H 12/31/20 12:19 Lactic Acid 1.40 mmol/L (0.7-2.0) 12/24/20 15:06 Calcium 8.8 mg/dL (8.4-10.2) 12/31/20 06:51 Phosphorus 2.80 mg/dL (2.5-4.5) 12/31/20 06:51 Magnesium 1.60 mg/dL (1.7-2.3) L 12/31/20 06:51 Total Bilirubin 2.40 mg/dL (0.1-1.2) H 12/30/20 09:00 AST 85 units/L (5-40) H 12/30/20 09:00 ALT 25 units/L (7-56) 12/30/20 09:00 Alkaline Phosphatase 216 units/L (35-129) H 12/30/20 09:00 Ammonia 30.0 umol/L (25-60) 12/22/20 14:38 Troponin T 0.021 ng/mL (0.00-0.029) 12/22/20 14:38 Total Protein 5.3 g/dL (6.3-8.2) L 12/30/20 09:00 Albumin 2.6 g/dL (3.9-5) L 12/30/20 09:00 Albumin/Globulin Ratio 1.0 % 12/30/20 09:00 Triglycerides 155 mg/dL (2-149) H 12/30/20 09:00 Lipase 41 units/L (13-60) 12/22/20 14:38 Procalcitonin > 200.00 ng/mL (<0.15) 12/24/20 15:06 TSH 1.470 mlU/mL (0.270-4.200) 12/28/20 19:44 Arterial Blood Glucose 173 mg/dL (65-95) H 12/31/20 03:56 Arterial Blood Ionized Calcium 4.7 mg/dL (4.6-5.3) 12/31/20 03:56 Urine Color Yellow (Yellow) 12/22/20 18:53 Urine Turbidity Clear (Clear) 12/22/20 18:53 Urine pH 7.0 (5.0-7.0) 12/22/20 18:53 Ur Specific [facility] 1.012 (1.003-1.030) 12/22/20 18:53 Urine Protein >500 mg/dL (Negative) 12/22/20 18:53 Urine Glucose (UA) Neg mg/dL (Negative) 12/22/20 18:53 Urine Ketones Neg mg/dL (Negative) 12/22/20 18:53 Urine Blood Neg (Negative) 12/22/20 18:53 Urine Nitrite Neg (Negative) 12/22/20 18:53 Urine Bilirubin Neg (Negative) 12/22/20 18:53 Urine Urobilinogen < 2.0 mg/dL (<2.0) 12/22/20 18:53 Ur Leukocyte Esterase Neg (Negative) 12/22/20 18:53 Urine WBC (Auto) < 1.0 /HPF (0.0-6.0) 12/22/20 18:53 Urine RBC (Auto) 1.0 /HPF (0.0-6.0) 12/22/20 18:53 Fluid Type Dialysate 12/22/20 Unknown Fluid Color Colorless 12/22/20 Unknown Fluid Appearance Cloudy 12/22/20 Unknown Fluid WBC 208 /mm3 12/22/20 Unknown Fluid RBC 45 /mm3 12/22/20 Unknown Fluid Seg Neutrophils 82.0 % 12/22/20 Unknown Fluid Lymphocytes 11.0 % 12/22/20 Unknown Fluid Reactive Lymphs 0 % 12/22/20 Unknown Fluid Monocytes 7.0 % 12/22/20 Unknown Fluid Eosinophils 0 % 12/22/20 Unknown Fluid Basophils 0 % 12/22/20 Unknown Random Vancomycin 13.7 ug/mL (0-40.0) 12/26/20 Unknown Hepatitis A IgM Ab Non-reactive (NonReactive) 12/23/20 11:38 Hep Bs Antigen Non-reactive (Negative) 12/23/20 11:38 Hep B Core IgM Ab Non-reactive (NonReactive) 12/23/20 11:38 Hepatitis C Antibody Non-reactive (NonReactive) 12/23/20 11:38 Blood Type A POSITIVE 12/23/20 11:40 Antibody Screen Negative 12/23/20 11:40 Crossmatch See Detail 12/23/20 11:40 Jeffery/IV: Voiding Method Incontinent Active Medications - Current Medications Current Medications: Generic Name Dose Route Start Last Admin Trade Name Freq PRN Reason Stop Dose Admin Albuterol 2.5 mg 12/22/20 19:42 Albuterol 2.5 Mg/3 Ml Nebu IH Q4HRT PRN Shortness Of Breath Digoxin 0.125 mg 12/31/20 10:00 Digoxin 0.5 Mg/2 Ml Inj IV Q48HR THOMAS Famotidine 10 mg 12/24/20 13:00 12/31/20 09:46 Famotidine 20 Mg/2 Ml Inj IV 10 mg BID THOMAS Administration Fentanyl 50 mcg 12/24/20 11:35 12/31/20 07:41 Fentanyl 100 Mcg/2 Ml Inj IV 50 mcg Q10MIN PRN Administration ANALGESIA Haloperidol Lactate 5 mg 12/29/20 14:16 12/31/20 00:19 Haloperidol Lactate 5 Mg/1 Ml Inj IV 5 mg Q12H PRN Administration Agitation Heparin Sodium (Porcine) 5,000 unit 12/24/20 10:00 12/31/20 09:42 Heparin 5,000 Unit/1 Ml Vial SUB-Q 5,000 unit Q12HR THOMAS Administration Hydralazine HCl 10 mg 12/30/20 12:00 12/31/20 10:12 Hydralazine 20 Mg/1 Ml Inj IV Not Given Q4HR THOMAS Hydrophilic Ointment 1 applic 12/31/20 06:39 Lip Therapy Vaseline TP Q2HR PRN Dry Lips Sodium Chloride 100 mls @ 999 mls/hr 12/23/20 11:03 Nacl 0.9% IV RYLAND PRN Hypotension Propofol 1,000 mg in 100 mls @ 5.484 mls/hr 12/23/20 19:00 12/31/20 09:47 Diprivan 10 Mg/Ml IV 5 mcg/kg/min TITR THOMAS 2.742 mls/hr Administration Protocol 10 MCG/KG/MIN Fluconazole 200 mg in 100 mls @ 100 mls/hr 12/27/20 13:00 12/30/20 13:31 Diflucan IV 100 mls/hr Q24H THOMAS Administration Protocol Amino Acids/Electrolytes/Dextrose 2,016 mls @ 84 mls/hr 12/30/20 20:00 12/30/20 21:04 Tpn Adult IV 12/31/20 19:59 84 mls/hr DAILY@2000 THOMAS Administration Protocol Fentanyl Citrate 2,000 mcg in 100 mls @ 4.725 mls/hr 12/31/20 08:00 Fentanyl Drip Premix IV TITR THOMAS Protocol 1 MCG/KG/HR NORepinephrine/NS 8 MG-250 ML 8 mg in 250 mls @ 3.75 mls/hr 12/31/20 09:00 12/31/20 08:45 Norepinephrine/Ns 8 Mg-250 Ml (Double Conc) IV 8 mcg/min TITRATE THOMAS 15 mls/hr Titration Protocol 2 MCG/MIN Piperacillin Sod/Tazobactam Sod 2.25 gm in 50 mls @ 100 mls/hr 12/31/20 12:00 12/31/20 12:21 Zosyn/Ns 2.25 Gm/50ml IV 100 mls/hr Q8H THOMAS Administration Protocol Amino Acids/Electrolytes/Dextrose 2,016 mls @ 84 mls/hr 12/31/20 20:00 Tpn Adult IV 01/01/21 19:59 DAILY@1999 [facility] Protocol Metoprolol Tartrate 5 mg 12/30/20 12:00 12/31/20 10:14 Metoprolol Tartrate 5 Mg/5 Ml Inj IV Not Given Q4HR THOMAS Morphine Sulfate 2 mg 12/23/20 10:00 12/31/20 02:33 Morphine 2 Mg/1 Ml Inj IV 2 mg Q4H PRN Administration Pain, Moderate (4-6) Multi-Ingred Cream/Lotion/Oil/Oint 1 applic 12/31/20 06:39 Mineral Oil/Petrolatum, White Ophth Oint 3.5 Gm OU Q4HR PRN Dry Eye(s) Ondansetron HCl 4 mg 12/22/20 19:42 12/31/20 02:36 Ondansetron 4 Mg/2 Ml Inj IV 4 mg Q8H PRN Administration Nausea And Vomiting Scopolamine 1 each 12/28/20 16:00 12/28/20 15:41 Scopolamine Transdermal Patch 72 Hr TD 1 each Q72H THOMAS Administration Sodium Chloride 10 ml 12/22/20 22:00 12/31/20 13:22 Sodium Chloride 0.9% 10 Ml Flush Syringe IV 10 ml BID THOMAS Administration Sodium Chloride 10 ml 12/22/20 19:42 Sodium Chloride 0.9% 10 Ml Flush Syringe IV PRN PRN LINE FLUSH Nutrition/Malnutrition Assess - Dietary Evaluation Nutrition/Malnutrition Findings: Nutrition Notes Start: 12/24/20 12:36 Freq: Status: Active Protocol: Document 12/31/20 10:29 (Rec: 12/31/20 10:35 [email or web address]) Nutrition Notes Need for Assessment generated from: MD Order Initial or Follow up Reassessment Current Diagnosis CKD (stage V CKD),Sepsis, Hypertension,Heart Failure Other Pertinent Diagnosis bacterial peritonitis, on HD MWF/PRN, SBO, Crohns disease, Anemia Current Diet TPN at 84 ml/hr Labs/Tests K 5.2 Mg 1.6 Pertinent Medications Propofol at 2.742 ml/hr (72 kcal) Norepinnephrine Zofran Height 5 ft 7 in Weight 94.5 kg Lyman Body Weight (kg) 67.27 BMI 32.6 Subjective/Other Information TPN day 6. Pt remains NPO. Pt now on vent. NGT was pulled out and is to be replaced. Pt with PICC. Percent of energy/protein needs met: 81%/100% Burn Absent Trauma Absent Difficulty In Swallowing Skin Integrity/Comment Intact Current % PO Negligible Minimum of two criteria No physical signs of malnutrition #1 Nutrition Diagnosis Inadequate oral intake Diagnosis Progress(for reassessment Continues documentation) Is patient on ventilator? Yes Is Patient Ambulatory and/or Out of Bed No REE-([facility]-confined to bed) 2048.168 Kcal/Kg value to use for calculation 21 Approximate Energy Requirements Using 1985 kcal/Kg Calculation Used for Recommendations Kcal/kg Additional Notes Protein needs: >97g (>1.2g/kg AdjBW) fluid needs: 1 mL/kcal or per MD Nutrition Intervention Change Diet Order: Continue TPN Nutrition Support: TPN at 84ml/hr: AA 5% Dextrose 12.4% K 0 mEq Mg 8 mEq Ca 3 mEq 1246 mOsm Kcal 1,250 Protein (gm) 100 Carbohydrates (gm) 250 Fat (gm) 0 Fluid (mL) 2,016 Goal #1 Meet kcal and protein needs as best as possible Anticipated Discharge Needs: unable to determine at this time Follow-Up By: 01/01/21 Additional Comments Labs in AM: KAREN
--- NOTE | 2020-12-31 14:00 | Event Note ---
I updated the patient's daughter nate Nicholas at [phone] @ [id number] of the need to intubate last night, leukocytosis and change in antibiotics. I updated her about possible further imaging of abd.
[2020-12-31] MEDS: SCOPOLAMINE TRANSDERMAL PATCH 72 HR TD SCH (15:11)
[2020-12-31] MEDS: ACETAMINOPHEN 650 MG RECT SUPP PR PRN (15:13)
--- NOTE | 2020-12-31 16:22 | Progress Note ---
Assessment and Plan Acute hypoxemic respiratory failure, on mechanical ventilatory support. Severe Sepsis with septic shock Peritonitis Acute small-bowel obstruction with tissue necrosis. End-stage renal disease, on dialysis. Hypertension. Crohn's disease. Gastroesophageal reflux disease. Heart failure with reduced ejection fraction. Hyperkalemia. Anemia that is normocytic. Lactic acidosis. Oropharyngeal dysphagia Required intubation today Abdominal exam is concerning. CT scan of the abdomen with oral contrast to evaluate the abdomen for possible intra-abdominal sepsis Continue with vasopressors, add Neosynephrine- is on Norepinephrine and Vasopressin NPO, on TPN - continue to wean supplemental oxygen for target O2 sats > 92% - VAP bundle addressed - continue lung protective strategies - continue bronchodilators with pulmonary hygiene per RT - wean per pulmonary driven protocols otherwise - HD/UF per nephrology prescription for toxin and volume control - avoid nephrotoxins, renally dose all medications - continue accuchecks with glycemic control per SSI (While critically ill target blood glucose of 140-180 mg/dL; avoid hypoglycemia) - sedation prn for target RASS 0 to -1 - continue to avoid benzodiazepine's, reduce the possibility of delirium - Broad spectrum antibiotics per ID rec's - prn analgesia per CPOT score - Maintenance of sleep-wake cycle, avoid delirium - G.I. & VTE prophylaxis - PT/OT/ROM exercises - continue mobility protocols for pressure ulcer prophylaxis - Monitor hemodynamics closely - continue other care per attending / other consultants .... Re-evaluate in am & prn CONDITION: CRITICAL PROGNOSIS: GUARDED CODE STATUS: FULL CODE The high probability of a clinically significant, sudden or life-threatening deterioration of the [respiratory, cardiovascular, GI & neurologic] system(s) required my full and direct attention, intervention and personal management. The aggregate critical care time was [36] minutes without overlap. Time includes spent on; [x] Data Review and interpretation [x] Patient assessment and monitoring of vital signs [x] Documentation [x] Medication orders and management Subjective Date of service: 12/31/20 Principal diagnosis: Ac hypoxemic resp failure; Severe Sepsis; Peritonitis; Acute SBO; ESRD; CHF Interval history: Patient was intubated overnight for respiratory distress and this morning on examination he was on assist control tidal volume 450, rate 20, PEEP 6, 100% FiO2 and RT was getting a ABG to adjust vent settings. leukocytosis persist. Patient is on TPN and sedated with Levophed. Patient is also on vasopressor support with Levophed. Objective Vital Signs - 12hr 12/31/20 12/31/20 12/31/20 04:31 05:01 05:31 Temperature Pulse Rate 123 H 130 H 126 H Pulse Rate [ From Monitor] Respiratory 58 H 52 H 56 H Rate Respiratory Rate [Anterior Abdomen] Blood Pressure 147/93 147/93 147/93 O2 Sat by Pulse 96 96 96 Oximetry 12/31/20 12/31/20 12/31/20 05:47 06:01 06:31 Temperature Pulse Rate 127 H 113 H 118 H Pulse Rate [ From Monitor] Respiratory 58 H 17 Rate Respiratory Rate [Anterior Abdomen] Blood Pressure 147/93 147/93 114/59 O2 Sat by Pulse 95 100 Oximetry 12/31/20 12/31/20 12/31/20 06:43 07:00 07:31 Temperature Pulse Rate 116 H 117 H 125 H Pulse Rate [ From Monitor] Respiratory 36 H 38 H Rate Respiratory Rate [Anterior Abdomen] Blood Pressure 131/78 89/55 99/47 O2 Sat by Pulse 98 97 100 Oximetry 12/31/20 12/31/20 12/31/20 07:41 07:50 08:00 Temperature 102.5 F H Pulse Rate 112 H 118 H Pulse Rate [ 119 H From Monitor] Respiratory 40 H 31 H Rate Respiratory Rate [Anterior Abdomen] Blood Pressure 70/49 96/58 O2 Sat by Pulse 99 100 Oximetry 12/31/20 12/31/20 12/31/20 08:30 08:41 09:00 Temperature Pulse Rate 113 H 111 H Pulse Rate [ From Monitor] Respiratory 31 H 34 H 35 H Rate Respiratory 34 H Rate [Anterior Abdomen] Blood Pressure 64/39 70/49 O2 Sat by Pulse 99 98 Oximetry 12/31/20 12/31/20 12/31/20 09:31 10:01 10:12 Temperature Pulse Rate 115 H 118 H 114 H Pulse Rate [ From Monitor] Respiratory 34 H 35 H Rate Respiratory Rate [Anterior Abdomen] Blood Pressure 76/46 91/59 74/46 O2 Sat by Pulse 98 100 Oximetry 12/31/20 12/31/20 12/31/20 10:14 10:31 11:01 Temperature Pulse Rate 114 H 124 H 122 H Pulse Rate [ From Monitor] Respiratory 40 H 37 H Rate Respiratory Rate [Anterior Abdomen] Blood Pressure 76/46 91/59 91/59 O2 Sat by Pulse 98 99 Oximetry 12/31/20 12/31/20 12/31/20 11:31 12:00 12:01 Temperature 102.1 F H Pulse Rate 126 H 124 H 120 H Pulse Rate [ 114 H From Monitor] Respiratory 38 H 34 H 31 H Rate Respiratory Rate [Anterior Abdomen] Blood Pressure 91/59 91/59 91/59 O2 Sat by Pulse 99 99 100 Oximetry 12/31/20 12/31/20 12/31/20 12:31 13:01 13:31 Temperature Pulse Rate 124 H 123 H 123 H Pulse Rate [ From Monitor] Respiratory 38 H 37 H 40 H Rate Respiratory Rate [Anterior Abdomen] Blood Pressure 91/59 91/59 91/59 O2 Sat by Pulse 99 98 99 Oximetry 12/31/20 12/31/20 12/31/20 14:01 14:34 14:35 Temperature Pulse Rate 130 H 114 H 115 H Pulse Rate [ From Monitor] Respiratory 39 H Rate Respiratory Rate [Anterior Abdomen] Blood Pressure 102/57 102/57 102/57 O2 Sat by Pulse 97 Oximetry 12/31/20 15:55 Temperature Pulse Rate 122 H Pulse Rate [ From Monitor] Respiratory Rate Respiratory Rate [Anterior Abdomen] Blood Pressure 98/54 O2 Sat by Pulse 98 Oximetry Constitutional: appears uncomfortable, other (elderly male with mildly increased respiratory effort at rest ) Eyes: non-icteric ENT: oropharynx moist, oropharyngeal exudate pre (small volume, clear), other (extubated) Neck: supple, no lymphadenopathy, no JVD Effort: mildly labored Ascultation: Bilateral: diminished breath sounds, rhonchi (scant) Percussion: Bilateral: not dull Cardiovascular: regular rate and rhythm, other (S1,S2) Gastrointestinal: hypoactive bowel sounds, tender (mild), other (Distended, firm. Midline dwayne) Integumentary: other (popst surgical changes) Extremities: no cyanosis, no edema, pulses normal, no ischemia or petechiae Neurologic: pupils equal and round Psychiatric: other (unable to assess, sedated) CBC and BMP: 01/01/21 17:58 01/01/21 17:58 ABG, PT/INR, D-dimer: ABG ABG pH 7.430 pH Units (7.350-7.450) 12/31/20 09:38 POC ABG pCO2 32.8 mmHg (32.0-48.0) 12/31/20 03:56 ABG pCO2 33.9 mm Hg 12/31/20 09:38 POC ABG pO2 49.4 mmHg (83-108) L 12/31/20 03:56 ABG pO2 354.0 mm Hg (80.0-90.0) H 12/31/20 09:38 POC ABG HCO3 22.1 12/31/20 03:56 ABG O2 Saturation 99.6 % (95.0-99.0) H 12/31/20 09:38 PT/INR, D-dimer PT 13.8 Sec. (12.2-14.9) 12/22/20 14:38 INR 1.07 (0.87-1.13) 12/22/20 14:38 Abnormal lab findings: Abnormal Labs 12/22/20 12/22/20 12/22/20 14:38 14:38 14:38 WBC RBC Hgb 11.2 L Hct 35.0 L RDW 16.7 H Plt Count Lymph % (Auto) [place] % (Auto) Lymph # (Auto) Seg Neutrophils % Seg Neuts % (Manual) 94.0 H Lymphocytes % (Manual) 5.0 L Seg Neutrophils # Man Lymphocytes # (Manual) 0.3 L ABG pH POC ABG pCO2 POC ABG pO2 ABG pO2 ABG HCO3 ABG O2 Saturation ABG Base Excess ABG Hemoglobin ABG Oxyhemoglobin ABG Sodium ABG Potassium ABG Chloride ABG Glucose Oxyhemoglobin Sodium Potassium Chloride Carbon Dioxide BUN 58 H Creatinine 13.2 H Glucose 113 H POC Glucose Lactic Acid 3.60 H* Calcium Phosphorus Magnesium Total Bilirubin 1.30 H AST ALT Alkaline Phosphatase 155 H Total Protein Albumin Triglycerides Arterial Blood Glucose Arterial Blood Ionized Calcium Crossmatch 12/22/20 12/22/20 12/23/20 16:26 17:47 05:22 WBC RBC Hgb Hct RDW Plt Count Lymph % (Auto) [place] % (Auto) Lymph # (Auto) Seg Neutrophils % Seg Neuts % (Manual) Lymphocytes % (Manual) Seg Neutrophils # Man Lymphocytes # (Manual) ABG pH POC ABG pCO2 POC ABG pO2 ABG pO2 ABG HCO3 ABG O2 Saturation ABG Base Excess ABG Hemoglobin ABG Oxyhemoglobin ABG Sodium ABG Potassium ABG Chloride ABG Glucose Oxyhemoglobin Sodium Potassium Chloride Carbon Dioxide BUN Creatinine Glucose POC Glucose Lactic Acid 2.80 H* 3.10 H* 2.30 H* Calcium Phosphorus Magnesium Total Bilirubin AST ALT Alkaline Phosphatase Total Protein Albumin Triglycerides Arterial Blood Glucose Arterial Blood Ionized Calcium Crossmatch 12/23/20 12/23/20 12/23/20 05:22 05:22 06:35 WBC 12.1 H RBC Hgb 11.0 L Hct 33.7 L RDW 16.9 H Plt Count Lymph % (Auto) [place] % (Auto) Lymph # (Auto) Seg Neutrophils % Seg Neuts % (Manual) 93.0 H Lymphocytes % (Manual) 1.0 L Seg Neutrophils # Man 11.3 H Lymphocytes # (Manual) 0.1 L ABG pH POC ABG pCO2 POC ABG pO2 ABG pO2 ABG HCO3 ABG O2 Saturation ABG Base Excess ABG Hemoglobin ABG Oxyhemoglobin ABG Sodium ABG Potassium ABG Chloride ABG Glucose Oxyhemoglobin Sodium Potassium 5.7 H D Chloride Carbon Dioxide BUN 73 H Creatinine 14.2 H Glucose POC Glucose Lactic Acid 2.30 H* Calcium 7.9 L Phosphorus Magnesium Total Bilirubin 1.40 H AST 119 H ALT 130 H Alkaline Phosphatase 183 H Total Protein 6.1 L Albumin 3.6 L Triglycerides Arterial Blood Glucose Arterial Blood Ionized Calcium Crossmatch 12/23/20 12/23/20 12/23/20 11:40 13:53 16:47 WBC RBC Hgb 10.0 L Hct 30.4 L RDW Plt Count Lymph % (Auto) [place] % (Auto) Lymph # (Auto) Seg Neutrophils % Seg Neuts % (Manual) Lymphocytes % (Manual) Seg Neutrophils # Man Lymphocytes # (Manual) ABG pH POC ABG pCO2 POC ABG pO2 137.5 H ABG pO2 ABG HCO3 ABG O2 Saturation ABG Base Excess ABG Hemoglobin 9.7 L ABG Oxyhemoglobin ABG Sodium 134.1 L ABG Potassium 6.6 H ABG Chloride ABG Glucose 103 H Oxyhemoglobin Sodium Potassium Chloride Carbon Dioxide BUN Creatinine Glucose POC Glucose Lactic Acid Calcium Phosphorus Magnesium Total Bilirubin AST ALT Alkaline Phosphatase Total Protein Albumin Triglycerides Arterial Blood Glucose 103 H Arterial Blood Ionized Calcium 3.8 L Crossmatch See Detail 12/23/20 12/23/20 12/24/20 20:35 20:40 01:20 WBC RBC Hgb Hct RDW Plt Count Lymph % (Auto) [place] % (Auto) Lymph # (Auto) Seg Neutrophils % Seg Neuts % (Manual) Lymphocytes % (Manual) Seg Neutrophils # Man Lymphocytes # (Manual) ABG pH 7.252 L POC ABG pCO2 POC ABG pO2 ABG pO2 50.1 L ABG HCO3 ABG O2 Saturation 81.1 L ABG Base Excess -5.9 L ABG Hemoglobin 12.1 L ABG Oxyhemoglobin ABG Sodium ABG Potassium ABG Chloride ABG Glucose Oxyhemoglobin 78.6 L Sodium 134 L Potassium 6.9 H* D 6.3 H* Chloride Carbon Dioxide 18 L 20 L BUN 87 H 91 H Creatinine 15.3 H 15.3 H Glucose 103 H POC Glucose Lactic Acid Calcium 6.9 L 7.5 L Phosphorus Magnesium Total Bilirubin AST ALT Alkaline Phosphatase Total Protein Albumin Triglycerides Arterial Blood Glucose Arterial Blood Ionized Calcium Crossmatch 12/24/20 12/24/20 12/24/20 04:00 10:29 10:29 WBC RBC 3.49 L Hgb 10.5 L Hct 31.2 L RDW 17.5 H Plt Count 124 L Lymph % (Auto) 3.7 L [place] % (Auto) 9.8 H Lymph # (Auto) 0.2 L Seg Neutrophils % 85.9 H Seg Neuts % (Manual) Lymphocytes % (Manual) Seg Neutrophils # Man Lymphocytes # (Manual) ABG pH POC ABG pCO2 28.1 L POC ABG pO2 ABG pO2 ABG HCO3 ABG O2 Saturation ABG Base Excess ABG Hemoglobin ABG Oxyhemoglobin ABG Sodium 133.9 L ABG Potassium 5.3 H ABG Chloride 108.0 H ABG Glucose Oxyhemoglobin Sodium Potassium 5.6 H Chloride Carbon Dioxide 19 L BUN 99 H Creatinine 16.9 H Glucose 52 L POC Glucose Lactic Acid Calcium 7.6 L Phosphorus Magnesium Total Bilirubin 3.50 H AST 67 H ALT 71 H Alkaline Phosphatase Total Protein 3.5 L D Albumin 2.1 L Triglycerides Arterial Blood Glucose Arterial Blood Ionized Calcium 4.0 L Crossmatch 12/25/20 12/25/20 12/25/20 03:33 04:00 04:00 WBC 3.8 L RBC 2.90 L Hgb 8.6 L Hct 25.7 L RDW 16.7 H Plt Count 113 L Lymph % (Auto) [place] % (Auto) Lymph # (Auto) Seg Neutrophils % Seg Neuts % (Manual) Lymphocytes % (Manual) Seg Neutrophils # Man Lymphocytes # (Manual) ABG pH 7.544 H POC ABG pCO2 28.2 L POC ABG pO2 62.8 L ABG pO2 ABG HCO3 ABG O2 Saturation ABG Base Excess ABG Hemoglobin 9.3 L ABG Oxyhemoglobin 93.0 L ABG Sodium 130.3 L ABG Potassium ABG Chloride ABG Glucose 97 H Oxyhemoglobin Sodium Potassium Chloride Carbon Dioxide BUN 62 H Creatinine 11.4 H Glucose POC Glucose Lactic Acid Calcium 7.7 L Phosphorus 5.00 H Magnesium Total Bilirubin AST ALT Alkaline Phosphatase Total Protein Albumin Triglycerides Arterial Blood Glucose 97 H Arterial Blood Ionized Calcium 3.9 L Crossmatch 12/26/20 12/26/20 12/27/20 04:46 Unknown 03:40 WBC 4.1 L RBC 2.61 L Hgb 7.8 L Hct 23.4 L RDW 17.1 H Plt Count 119 L Lymph % (Auto) 5.3 L [place] % (Auto) 10.6 H Lymph # (Auto) 0.2 L Seg Neutrophils % 78.8 H Seg Neuts % (Manual) Lymphocytes % (Manual) Seg Neutrophils # Man Lymphocytes # (Manual) ABG pH 7.333 L 7.332 L POC ABG pCO2 POC ABG pO2 ABG pO2 ABG HCO3 26.9 H ABG O2 Saturation ABG Base Excess -2.4 L ABG Hemoglobin 6.8 L 7.2 L ABG Oxyhemoglobin ABG Sodium ABG Potassium ABG Chloride ABG Glucose Oxyhemoglobin 93.0 L 93.1 L Sodium Potassium Chloride Carbon Dioxide BUN Creatinine Glucose POC Glucose Lactic Acid Calcium Phosphorus Magnesium Total Bilirubin AST ALT Alkaline Phosphatase Total Protein Albumin Triglycerides Arterial Blood Glucose Arterial Blood Ionized Calcium Crossmatch 12/27/20 12/27/20 12/27/20 06:40 06:40 11:22 WBC 4.4 L RBC 2.49 L Hgb 7.4 L Hct 22.4 L RDW 17.1 H Plt Count 111 L Lymph % (Auto) 6.7 L [place] % (Auto) 12.6 H Lymph # (Auto) 0.3 L Seg Neutrophils % 77.6 H Seg Neuts % (Manual) Lymphocytes % (Manual) Seg Neutrophils # Man Lymphocytes # (Manual) ABG pH POC ABG pCO2 POC ABG pO2 ABG pO2 ABG HCO3 ABG O2 Saturation ABG Base Excess ABG Hemoglobin ABG Oxyhemoglobin ABG Sodium ABG Potassium ABG Chloride ABG Glucose Oxyhemoglobin Sodium Potassium Chloride Carbon Dioxide BUN 64 H Creatinine 9.8 H Glucose 147 H POC Glucose 134 H Lactic Acid Calcium 8.3 L Phosphorus 5.00 H Magnesium Total Bilirubin 3.70 H AST 72 H ALT Alkaline Phosphatase 142 H Total Protein 5.1 L D Albumin 2.9 L Triglycerides Arterial Blood Glucose Arterial Blood Ionized Calcium Crossmatch 12/27/20 12/27/20 12/28/20 17:29 23:31 03:09 WBC RBC Hgb Hct RDW Plt Count Lymph % (Auto) [place] % (Auto) Lymph # (Auto) Seg Neutrophils % Seg Neuts % (Manual) Lymphocytes % (Manual) Seg Neutrophils # Man Lymphocytes # (Manual) ABG pH 7.474 H POC ABG pCO2 POC ABG pO2 ABG pO2 ABG HCO3 ABG O2 Saturation ABG Base Excess ABG Hemoglobin 7.8 L ABG Oxyhemoglobin ABG Sodium ABG Potassium ABG Chloride ABG Glucose Oxyhemoglobin Sodium Potassium Chloride Carbon Dioxide BUN Creatinine Glucose POC Glucose 121 H 131 H Lactic Acid Calcium Phosphorus Magnesium Total Bilirubin AST ALT Alkaline Phosphatase Total Protein Albumin Triglycerides Arterial Blood Glucose Arterial Blood Ionized Calcium Crossmatch 12/28/20 12/28/20 12/28/20 05:37 05:40 05:40 WBC 4.3 L RBC 2.40 L Hgb 7.2 L Hct 21.5 L RDW 17.4 H Plt Count 112 L Lymph % (Auto) 6.5 L [place] % (Auto) 16.7 H Lymph # (Auto) 0.3 L Seg Neutrophils % 71.1 H Seg Neuts % (Manual) Lymphocytes % (Manual) Seg Neutrophils # Man Lymphocytes # (Manual) ABG pH POC ABG pCO2 POC ABG pO2 ABG pO2 ABG HCO3 ABG O2 Saturation ABG Base Excess ABG Hemoglobin ABG Oxyhemoglobin ABG Sodium ABG Potassium ABG Chloride ABG Glucose Oxyhemoglobin Sodium Potassium Chloride Carbon Dioxide BUN 85 H Creatinine 11.5 H Glucose 132 H POC Glucose 121 H Lactic Acid Calcium 8.2 L Phosphorus Magnesium 2.40 H Total Bilirubin 3.80 H AST 70 H ALT Alkaline Phosphatase 176 H Total Protein 5.0 L Albumin 2.9 L Triglycerides Arterial Blood Glucose Arterial Blood Ionized Calcium Crossmatch 12/28/20 12/28/20 12/28/20 11:34 15:00 17:35 WBC RBC Hgb Hct RDW Plt Count Lymph % (Auto) [place] % (Auto) Lymph # (Auto) Seg Neutrophils % Seg Neuts % (Manual) Lymphocytes % (Manual) Seg Neutrophils # Man Lymphocytes # (Manual) ABG pH 7.461 H POC ABG pCO2 POC ABG pO2 72.2 L ABG pO2 ABG HCO3 ABG O2 Saturation ABG Base Excess ABG Hemoglobin 8.2 L ABG Oxyhemoglobin 93.6 L ABG Sodium 134.1 L ABG Potassium 3.2 L ABG Chloride ABG Glucose 135 H Oxyhemoglobin Sodium Potassium Chloride Carbon Dioxide BUN Creatinine Glucose POC Glucose 137 H 144 H Lactic Acid Calcium Phosphorus Magnesium Total Bilirubin AST ALT Alkaline Phosphatase Total Protein Albumin Triglycerides Arterial Blood Glucose 135 H Arterial Blood Ionized Calcium 4.4 L Crossmatch 12/28/20 12/28/20 12/29/20 19:44 Unknown 00:21 WBC RBC Hgb Hct RDW Plt Count Lymph % (Auto) [place] % (Auto) Lymph # (Auto) Seg Neutrophils % Seg Neuts % (Manual) Lymphocytes % (Manual) Seg Neutrophils # Man Lymphocytes # (Manual) ABG pH 7.474 H POC ABG pCO2 POC ABG pO2 ABG pO2 ABG HCO3 ABG O2 Saturation ABG Base Excess ABG Hemoglobin 7.8 L ABG Oxyhemoglobin ABG Sodium 133.2 L ABG Potassium ABG Chloride ABG Glucose 139 H Oxyhemoglobin Sodium 135 L Potassium Chloride 96.6 L Carbon Dioxide BUN 47 H Creatinine 7.4 H Glucose 130 H POC Glucose 142 H Lactic Acid Calcium 8.3 L Phosphorus Magnesium Total Bilirubin AST ALT Alkaline Phosphatase Total Protein Albumin Triglycerides Arterial Blood Glucose 139 H Arterial Blood Ionized Calcium 4.3 L Crossmatch 12/29/20 12/29/20 12/29/20 05:16 05:16 05:26 WBC RBC 2.53 L Hgb 7.7 L Hct 22.8 L RDW 17.0 H Plt Count 130 L Lymph % (Auto) [place] % (Auto) Lymph # (Auto) Seg Neutrophils % Seg Neuts % (Manual) 79.0 H Lymphocytes % (Manual) 9.0 L Seg Neutrophils # Man Lymphocytes # (Manual) 0.6 L ABG pH POC ABG pCO2 POC ABG pO2 ABG pO2 ABG HCO3 ABG O2 Saturation ABG Base Excess ABG Hemoglobin ABG Oxyhemoglobin ABG Sodium ABG Potassium ABG Chloride ABG Glucose Oxyhemoglobin Sodium Potassium 3.4 L Chloride 96.6 L Carbon Dioxide BUN 59 H Creatinine 8.3 H Glucose 127 H POC Glucose 141 H Lactic Acid Calcium 8.2 L Phosphorus Magnesium Total Bilirubin 3.00 H AST 88 H ALT Alkaline Phosphatase 188 H Total Protein 5.1 L Albumin 2.8 L Triglycerides Arterial Blood Glucose Arterial Blood Ionized Calcium Crossmatch 12/29/20 12/29/20 12/29/20 11:33 17:29 23:22 WBC RBC Hgb Hct RDW Plt Count Lymph % (Auto) [place] % (Auto) Lymph # (Auto) Seg Neutrophils % Seg Neuts % (Manual) Lymphocytes % (Manual) Seg Neutrophils # Man Lymphocytes # (Manual) ABG pH POC ABG pCO2 POC ABG pO2 ABG pO2 ABG HCO3 ABG O2 Saturation ABG Base Excess ABG Hemoglobin ABG Oxyhemoglobin ABG Sodium ABG Potassium ABG Chloride ABG Glucose Oxyhemoglobin Sodium Potassium Chloride Carbon Dioxide BUN Creatinine Glucose POC Glucose 144 H 130 H 117 H Lactic Acid Calcium Phosphorus Magnesium Total Bilirubin AST ALT Alkaline Phosphatase Total Protein Albumin Triglycerides Arterial Blood Glucose Arterial Blood Ionized Calcium Crossmatch 12/30/20 12/30/20 12/30/20 05:23 08:15 09:00 WBC RBC Hgb Hct RDW Plt Count Lymph % (Auto) [place] % (Auto) Lymph # (Auto) Seg Neutrophils % Seg Neuts % (Manual) Lymphocytes % (Manual) Seg Neutrophils # Man Lymphocytes # (Manual) ABG pH POC ABG pCO2 POC ABG pO2 ABG pO2 ABG HCO3 ABG O2 Saturation ABG Base Excess ABG Hemoglobin ABG Oxyhemoglobin ABG Sodium ABG Potassium ABG Chloride ABG Glucose Oxyhemoglobin Sodium 135 L Potassium Chloride 95.9 L Carbon Dioxide BUN 85 H Creatinine 10.6 H Glucose 128 H POC Glucose 135 H 127 H Lactic Acid Calcium 8.3 L Phosphorus Magnesium Total Bilirubin 2.40 H AST 85 H ALT Alkaline Phosphatase 216 H Total Protein 5.3 L Albumin 2.6 L Triglycerides 155 H Arterial Blood Glucose Arterial Blood Ionized Calcium Crossmatch 12/30/20 12/30/20 12/30/20 09:00 11:53 15:49 WBC RBC 2.61 L Hgb 7.8 L Hct 23.7 L RDW 17.3 H Plt Count Lymph % (Auto) [place] % (Auto) Lymph # (Auto) Seg Neutrophils % Seg Neuts % (Manual) Lymphocytes % (Manual) Seg Neutrophils # Man Lymphocytes # (Manual) ABG pH POC ABG pCO2 POC ABG pO2 ABG pO2 ABG HCO3 ABG O2 Saturation ABG Base Excess ABG Hemoglobin ABG Oxyhemoglobin ABG Sodium ABG Potassium ABG Chloride ABG Glucose Oxyhemoglobin Sodium Potassium Chloride Carbon Dioxide BUN Creatinine Glucose POC Glucose 155 H 146 H Lactic Acid Calcium Phosphorus Magnesium Total Bilirubin AST ALT Alkaline Phosphatase Total Protein Albumin Triglycerides Arterial Blood Glucose Arterial Blood Ionized Calcium Crossmatch 12/30/20 12/30/20 12/31/20 17:53 23:45 03:56 WBC RBC Hgb Hct RDW Plt Count Lymph % (Auto) [place] % (Auto) Lymph # (Auto) Seg Neutrophils % Seg Neuts % (Manual) Lymphocytes % (Manual) Seg Neutrophils # Man Lymphocytes # (Manual) ABG pH POC ABG pCO2 POC ABG pO2 49.4 L ABG pO2 ABG HCO3 ABG O2 Saturation ABG Base Excess ABG Hemoglobin 10.3 L ABG Oxyhemoglobin 84.2 L ABG Sodium 133.1 L ABG Potassium ABG Chloride ABG Glucose 173 H Oxyhemoglobin Sodium Potassium Chloride Carbon Dioxide BUN Creatinine Glucose POC Glucose 139 H 173 H Lactic Acid Calcium Phosphorus Magnesium Total Bilirubin AST ALT Alkaline Phosphatase Total Protein Albumin Triglycerides Arterial Blood Glucose 173 H Arterial Blood Ionized Calcium Crossmatch 12/31/20 12/31/20 12/31/20 05:07 06:51 06:51 WBC 20.3 H RBC 3.32 L Hgb 9.8 L Hct 30.3 L D RDW 17.3 H Plt Count Lymph % (Auto) [place] % (Auto) Lymph # (Auto) Seg Neutrophils % Seg Neuts % (Manual) 87.0 H Lymphocytes % (Manual) 10.0 L Seg Neutrophils # Man 17.7 H Lymphocytes # (Manual) ABG pH POC ABG pCO2 POC ABG pO2 ABG pO2 ABG HCO3 ABG O2 Saturation ABG Base Excess ABG Hemoglobin ABG Oxyhemoglobin ABG Sodium ABG Potassium ABG Chloride ABG Glucose Oxyhemoglobin Sodium Potassium 5.2 H D Chloride Carbon Dioxide BUN 62 H Creatinine 8.4 H Glucose 116 H POC Glucose 120 H Lactic Acid Calcium Phosphorus Magnesium 1.60 L Total Bilirubin AST ALT Alkaline Phosphatase Total Protein Albumin Triglycerides Arterial Blood Glucose Arterial Blood Ionized Calcium Crossmatch 12/31/20 12/31/20 12/31/20 09:38 12:19 12:22 WBC RBC Hgb Hct RDW Plt Count Lymph % (Auto) [place] % (Auto) Lymph # (Auto) Seg Neutrophils % Seg Neuts % (Manual) Lymphocytes % (Manual) Seg Neutrophils # Man Lymphocytes # (Manual) ABG pH POC ABG pCO2 POC ABG pO2 ABG pO2 354.0 H ABG HCO3 ABG O2 Saturation 99.6 H ABG Base Excess ABG Hemoglobin 9.1 L ABG Oxyhemoglobin ABG Sodium ABG Potassium ABG Chloride ABG Glucose Oxyhemoglobin Sodium Potassium 5.2 H Chloride Carbon Dioxide BUN Creatinine Glucose POC Glucose 132 H Lactic Acid Calcium Phosphorus Magnesium Total Bilirubin AST ALT Alkaline Phosphatase Total Protein Albumin Triglycerides Arterial Blood Glucose Arterial Blood Ionized Calcium Crossmatch Chest x-ray: image reviewed Allied health notes reviewed: RT
[2020-12-31] MEDS ORDERED: TOTAL PARENTERAL NUTRITION 2,016 ML IV SCH (20:00)
[2020-12-31] MEDS: VASOPRESSIN 20 UNIT in SODIUM CHLORIDE 0.9% 100 ML IV SCH (20:43)
[2020-12-31] MEDS ORDERED: PHENYLEPHRINE 100 MG in SODIUM CHLORIDE 0.9% 90 ML IV SCH (23:45)
[2021-01-01] MEDS: NORepinephrine/NS 8 MG-250 ML 8 MG/250 ML INFUS..BTL IV SCH ×4 (03:54→21:38)
--- NOTE | 2021-01-01 05:54 | XRay Report ---
CHEST 1 VIEW 01/01/2021 4:35 AM INDICATION / CLINICAL INFORMATION: follow up respiratory failure. COMPARISON: Previous day. FINDINGS: SUPPORT DEVICES: No significant change. HEART / MEDIASTINUM: Stable. LUNGS / PLEURA: Improving basilar opacity with mild residual on the left. No pneumothorax. ADDITIONAL FINDINGS: No significant additional findings. IMPRESSION: Mild interval improvement. Signer Name: Isra Sahni MD Signed: 01/01/2021 5:49 AM Workstation Name: [id number]
[2021-01-01] MEDS: PIPERACIL-TAZO 2.25 GM/50 ML 2.25 GM/50 ML BAG IV SCH ×3 (06:13→20:16)
[2021-01-01] MEDS: hydrALAZINE 20 MG/1 ML INJ IV SCH ×6 (06:14→18:54)
[2021-01-01] MEDS: METOPROLOL TARTRATE 5 MG/5 ML INJ IV SCH ×5 (06:18→18:54)
[2021-01-01] MEDS: VASOPRESSIN 20 UNIT in SODIUM CHLORIDE 0.9% 100 ML IV SCH (07:50)
[2021-01-01 07:59] LABS: Hematocrit 27.1 % (35.5-45.6); Hemoglobin 8.6 gm/dl (11.8-15.2); Mean Corpuscular HGB Conc 32 % (32-34); Mean Corpuscular Volume 92 fl (84-94); Platelet Count 258 K/mm3 (140-440); Red Blood Count 2.95 M/mm3 (3.65-5.03); Red Cell Distribution Width 18.2 % (13.2-15.2)
[2021-01-01] MEDS: FAMOTIDINE 20 MG/2 ML INJ IV SCH ×3 (08:01→21:39)
[2021-01-01] MEDS ORDERED: INSULIN REGULAR, HUMAN 100 UNITS/1 ML IV ONE ×2 (09:00→19:45)
[2021-01-01] MEDS ORDERED: DEXTROSE 50% IN WATER (25GM) 50 ML SYRINGE IV ONE ×2 (09:00→19:45)
--- NOTE | 2021-01-01 09:17 | Progress Note ---
Assessment and Plan Cultures: 12/22/2020 blood culture: Streptococcus bovis, Prevotella 12/22/2020 PD fluid culture: No growth 12/24/2020 tracheal aspirate culture: No growth 12/24/2020 blood culture: No growth A/P: 60-year-old male with ESRD on PD, Crohn's disease, CHF, gastroesophageal reflux disease was admitted to the hospital with complaints of abdominal pain and fever: #Severe sepsis with shock: Secondary to small bowel obstruction/necrotic bowel with associated peritonitis. Status post exploratory laparotomy on 12/23/2020 with extensive lysis, primary anastomosis, found to have necrotic segment of small bowel. #Small bowel obstruction/necrotic bowel: with concern for PD associated peritonitis: Nephrology and general surgery following. Status post exploratory laparotomy on 12/23/2020 with extensive lysis, primary anastomosis, found to have necrotic segment of small bowel. PD catheter remains in place. #Streptococcus bovis bacteremia and Prevotella bacteremia: secondary to above. TTE without obvious vegetations. #ESRD: Renally dose antibiotics. Used to be on PD, cath remains in place. Now on HD. #Elevated LFTs: Secondary to sepsis. #Acute respiratory failure: extubated, then re-intubated 12/31/2020. Recs: -leukocytosis continues to rise, agree with plans for CT abdomen and pelvis -continue IV Zosyn, renally dosed -Continue fluconazole for now -tentative end date for bacteremia treatment: 01/06/2021, however, may need to extend depending on clinical course Yesika Denny MD, FACP [facility] ([facility] O: [phone] F: [phone] Subjective Date of service: 01/01/21 Principal diagnosis: Ac hypoxemic resp failure; Severe Sepsis; Peritonitis; Acu te SBO; ESRD; CHF Interval history: Febrile yesterday. On 2 pressors now. Critically ill, on the vent. Objective - Exam Narrative Exam: Physical Exam: Constitutional: sedated, intubated Head, Ears, Nose: Normocephalic, atraumatic. External ears, nose normal Eyes: Conjunctivae/corneas clear. No icterus. No ptosis. Neck: intubated Cardiovascular: S1, S2 + Respiratory: AE fair bilaterally GI: distended, midline incision, PD catheter present, bowel sounds -ve Musculoskeletal: No pedal edema, no cyanosis. Skin: No rash or abscess Hem/Lymphatic: No palpable cervical or supraclavicular nodes. No lymphangitis Psych: no agitation Neurological: sedated, intubated - Constitutional Vitals: Vital Signs Temp Pulse Resp BP Pulse Ox 99.5 F 118 H 35 H 114/71 96 01/01/21 03:52 01/01/21 08:00 01/01/21 08:00 01/01/21 08:00 01/01/21 08:00 Temperature -Last 24 Hours Temperature 99.5 F Temperature 99.8 F Temperature 99.2 F Temperature 100.2 F Temperature 102.1 F - Labs CBC & Chem 7: 01/01/21 07:31 01/01/21 07:31 Labs: Abnormal lab results 12/31/20 12/31/20 12/31/20 Range/Units 06:51 09:38 12:19 WBC (4.5-11.0) K/mm3 RBC (3.65-5.03) M/mm3 Hgb (11.8-15.2) gm/dl Hct (35.5-45.6) % RDW (13.2-15.2) % Seg Neuts % (Manual) 87.0 H (40.0-70.0) % Lymphocytes % (Manual) 10.0 L (13.4-35.0) % Seg Neutrophils # Man 17.7 H (1.8-7.7) K/mm3 POC ABG pO2 (83-108) mmHg ABG pO2 354.0 H (80.0-90.0) mm Hg ABG O2 Saturation 99.6 H (95.0-99.0) % ABG Hemoglobin 9.1 L (14.0-18.0) gm/dl ABG Sodium (136.0-145.0) mmol/L ABG Potassium (3.40-4.50) mmol/L ABG Glucose (65-95) mg/dL Potassium (3.6-5.0) mmol/L Carbon Dioxide (22-30) mmol/L BUN (9-20) mg/dL Creatinine (0.8-1.3) mg/dL Glucose (75-100) mg/dL POC Glucose 132 H (70-105) mg/dL Arterial Blood Glucose (65-95) mg/dL 12/31/20 12/31/20 01/01/21 Range/Units 12:22 23:23 03:03 WBC (4.5-11.0) K/mm3 RBC (3.65-5.03) M/mm3 Hgb (11.8-15.2) gm/dl Hct (35.5-45.6) % RDW (13.2-15.2) % Seg Neuts % (Manual) (40.0-70.0) % Lymphocytes % (Manual) (13.4-35.0) % Seg Neutrophils # Man (1.8-7.7) K/mm3 POC ABG pO2 79.6 L (83-108) mmHg ABG pO2 (80.0-90.0) mm Hg ABG O2 Saturation (95.0-99.0) % ABG Hemoglobin 9.2 L (14.0-18.0) gm/dl ABG Sodium 131.6 L (136.0-145.0) mmol/L ABG Potassium 5.8 H (3.40-4.50) mmol/L ABG Glucose 177 H (65-95) mg/dL Potassium 5.2 H (3.6-5.0) mmol/L Carbon Dioxide (22-30) mmol/L BUN (9-20) mg/dL Creatinine (0.8-1.3) mg/dL Glucose (75-100) mg/dL POC Glucose 174 H (70-105) mg/dL Arterial Blood Glucose 177 H (65-95) mg/dL 01/01/21 01/01/21 01/01/21 Range/Units 05:04 07:31 07:31 WBC 26.1 H (4.5-11.0) K/mm3 RBC 2.95 L (3.65-5.03) M/mm3 Hgb 8.6 L (11.8-15.2) gm/dl Hct 27.1 L (35.5-45.6) % RDW 18.2 H (13.2-15.2) % Seg Neuts % (Manual) (40.0-70.0) % Lymphocytes % (Manual) (13.4-35.0) % Seg Neutrophils # Man (1.8-7.7) K/mm3 POC ABG pO2 (83-108) mmHg ABG pO2 (80.0-90.0) mm Hg ABG O2 Saturation (95.0-99.0) % ABG Hemoglobin (14.0-18.0) gm/dl ABG Sodium (136.0-145.0) mmol/L ABG Potassium (3.40-4.50) mmol/L ABG Glucose (65-95) mg/dL Potassium 6.0 H (3.6-5.0) mmol/L Carbon Dioxide 21 L (22-30) mmol/L BUN 89 H (9-20) mg/dL Creatinine 10.5 H (0.8-1.3) mg/dL Glucose 179 H (75-100) mg/dL POC Glucose 167 H (70-105) mg/dL Arterial Blood Glucose (65-95) mg/dL
[2021-01-01] MEDS: HEPARIN 5,000 UNIT/1 ML VIAL SUB-Q SCH (09:25)
[2021-01-01] MEDS ORDERED: CALCIUM GLUCONATE 2,000 MG in SODIUM CHLORIDE 0.9% 100 ML IV ONE ×2 (09:30→19:30)
[2021-01-01 11:02] LABS: Total Cells Counted 100
[2021-01-01 11:06] LABS: Ovalocytes Rare; Platelet Estimate Consistent w Auto
--- NOTE | 2021-01-01 11:22 | Cat Scan Report ---
CT CHEST, ABDOMEN, AND PELVIS WITHOUT CONTRAST INDICATION / CLINICAL INFORMATION: Abdominal distension, Septic Shock. TECHNIQUE: Axial CT images were obtained through the chest, abdomen, and pelvis without contrast. All CT scans a t this location are performed using CT dose reduction for ALARA by means of automated exposure contro l. COMPARISON: CT abdomen pelvis 12/22/2020 and CTA chest 10/10/2017 FINDINGS: NECK BASE: No significant abnormality. HEART: Small pericardial effusion. Mild coronary artery atherosclerotic calcification. MEDIASTINUM and JAKE: No significant abnormality. LUNGS/PLEURA: Small bilateral pleural effusions with associated volume loss. No pneumothorax. Endotr acheal tube with satisfactory appearance. HEPATOBILIARY: No significant abnormality. PANCREAS/SPLEEN/ADRENALS: No significant abnormality. GENITOURINARY: Atrophic appearance of the kidneys with small left renal hypodensity which is unchange d when compared to the prior examination. No evidence of obstructive uropathy. Bladder is decompresse d. GASTROINTESTINAL/MESENTERY: No convincing evidence of bowel obstruction or inflammation. Enteric cont rast only extends to the proximal small bowel is primarily in the duodenum. There is a moderate amoun t of ascites and mesenteric edema. There is a peritoneal dialysis catheter coiled in the pelvis. Ther e are recent surgical changes of midline laparotomy with a small amount of air in the anterior abdome n, presumably postoperative. Satisfactory appearance of the gastric tube. RETROPERITONEUM: Numerous upper limits normal size retroperitoneal lymph nodes similar when compared to the prior examination. REPRODUCTIVE ORGANS: No significant abnormality. VASCULAR: Mild atherosclerotic calcification without acute abnormality. BODY WALL: Mild scattered body wall edema. SKELETAL SYSTEM: No significant abnormality. IMPRESSION: 1. Postoperative change from interval/recent midline laparotomy with a moderate amount of free fluid throughout the abdomen. There is a small amount of dependent free air, presumably postoperative. No d efinite evidence of bowel obstruction or inflammation. 2. Small bilateral pleural effusions with associated volume loss. 3. Atrophic appearing kidneys with peritoneal dialysis changes. 4. Small pericardial effusion. 5. Additional findings as above. Signer Name: Shelton Read MD Signed: 01/01/2021 11:17 AM Workstation Name: [id number]
[2021-01-01] MEDS: fentaNYL 100 MCG/2 ML INJ IV PRN (11:28)
[2021-01-01] MEDS: FLUCONAZOLE 200 MG 200 MG/100 ML BAG IV SCH (12:09)
[2021-01-01] MEDS ORDERED: HYDROmorphone 1 MG/1 ML INJ ONE (12:35)
--- NOTE | 2021-01-01 12:41 | Progress Note ---
Assessment and Plan Assessment and plan: This is a 60-year-old male with ESRD on peritoneal dialysis, Crohn's, hypertension, systolic CHF (EF 35%) who was admitted with sepsis, peritonitis, small bowel obstruction and now has gram-positive cocci bacteremia. Sepsis Streptococcus bovis bacteremia/Prevotella bacteremia Gwendolyn albicans tracheal aspirate Small bowel obstruction/necrotic bowel s/p ex lap with extensive lysis of adhesions, 2 small bowel resections with primary anastomosis Acute hypoxic respiratory failure Postoperative ileus Atrial fibrillation with RVR Hyperkalemia Gwendolyn albicans in tracheal aspirate from 12/24 ESRD on PD, PermCath to be placed Transaminitis Systolic CHF(EF 35%) Crohn's disease Hypertension -[facility], surgery, infectious disease, nephrology, vascular surgery, cardiology consulted, appreciate recommendations -S/p ex lap with extensive expectations, 2 small bowel resections with primary anastomosis with surgery on 12/23 -s/p PICC and Permacath placement with vascular surgery on 12/27 -Extubated on 12/28, reintubated 12/31 for respiratory distress -Vasopressor support with Levophed and vasopressin -Transitioned to HD from PD -HD per nephro -NPO -PPN -NGT to LIS -IV antibiotics -12/29 echocardiogram shows moderate concentric LVH, small pericardial effusion, transmitral Doppler flow pattern is grade 1 abnormal relaxation pattern, left- ventricular systolic function normal, LVEF 50 to 55%, no wall motion abnor malities. -01/01 CT abdomen/pelvis shows small pericardial effusion, mild coronary artery atherosclerotic calcification, small bilateral pleural effusions with associated volume loss, no convincing evidence of bowel obstruction or inflammation, postoperative changes from interval/recent midline laparotomy with a moderate amount of free fluid throughout the abdomen, small amount of dependent free air presumably postoperative -Tobacco abuse cessation counseling -Trend CBC, BMP DVT/GI prophylaxis: PPI, heparin subcu, SCDs to bilateral lower extremities while in bed Disposition: ICU Critical care statement The high probability of a clinically significant, sudden or life threatening deterioration of the [pulmonary, cardiac, neuro, renal] system(s) required my full and direct attention, intervention and personal management. The aggregate critical care time was [35] minutes. This time is in addition to time spent performing reported procedures but includes the following: [x] Data Review and interpretation [x] Patient assessment and monitoring of vital signs [x] Documentation [x] Medication orders and management History Interval history: This is a 60 YO Male with ESRD on PD, GERD, Crohn's Disease, Nicotine Depen dence, HTN, Systolic CHF(EF 35%) who presented to the emergency department on 12/22 with complaints of abdominal pain which began shortly after eating fast food rated 10/10 which is periumbilical, constant, associated with fever, nausea and multiple sites of vomiting and self-reported inability to undergo PD. In the emergency room patient underwent a CT scan of the abdomen/pelvis which revealed evidence of partial small bowel obstruction, symptoms were consistent with bacterial peritonitis. Patient was admitted to the hospital service with sepsis, peritonitis, and small bowel obstruction with consults to general surgery, nephrology, infectious disease and [facility]. 12/23. Patient had temperature 101.2 F, tachycardia and elevated lactic acid on admission. Meet sepsis criteria. Started on IV antibiotics. ID has been consulted. Surgery consulted this a.m.-advised laparoscopy. He remains on NG tube connected to suction. 12/24. Patient was noted to have peritonitis yesterday and patient undergoing exploratory laparotomy. Patient remained intubated after procedure and is in ICU. Now on broad-spectrum antibiotics. ID on board. 12/25. Remains mechanically ventilated and sedated. Temp 103 Fahrenheit. Antibiotics broadened-ID added fluconazole and Flagyl. Blood cultures ordered. Plan to repeat CT abdomen tomorrow if not better. Surgery following. 12/26: Patient remains on mechanical ventilation on CMV tidal line 550, rate of 14, PEEP of 8 and 30% FiO2 and sedated on fentanyl 4 micrograms. Today we will remove his Jeffery and CCM dropped his rate controlled him on CPAP. We will trend CBC given recent drop in H/H. 12/27: Patient remains intubated on CMV tidal volume 550, rate 12, PEEP 8 on 30% FiO2 at the time my examination. Patient's TPN will be changed to PPN. Patien t's fentanyl drip will be changed to IV push fentanyl and have a permacath placed today and midline. Patient was placed on a spontaneous breathing trial was switched back to CMV prior to procedure. 12/28: Patient on fentanyl but awake and follows commands. At the time of my examination he was on a CPAP trial and is scheduled to receive HD today. s/o permacath and PICC placement with vascular yesterday. His blood culture grew Prevotella and addition to Streptococcus bovis. This evening Dr. Spicer attempted to extubate the patient and his heart rate went to the 180s. Stat EKG obtained and cardiology consulted. 12/29: Patient was started on amiodarone IV for A. fib RVR yesterday and today he is more rate controlled into the 70s and 80s. Patient was extubated yesterday and is currently on Ventimask. Patient will be transferred to [facility]. Patient continues to be n.p.o. with TPN and NG tube to [facility]. He is hypokalemic today which was repleted. 12/30; patient was on IV amiodarone for treatment with RVR, rate is controlled. Patient was off oxygen. patient is n.p.o. and on TPN. Surgery is following the patient. 12/31: Patient was intubated overnight for respiratory distress and this morning on examination he was on assist control tidal volume 450, rate 20, PEEP 6, 100% FiO2 and RT was getting a ABG to adjust vent settings. Patient had a acute bump in WBC and per ID recommendations we will obtain a CT abdomen/pelvis if leukocytosis persist. Patient is on TPN and sedated with Levophed. Patient is also on vasopressor support with Levophed. Per surgery his ileus is resolving h owever will maintain OGT to LIWS. 01/01: Patient was started on a vasopressin yesterday late evening. This morning patient is on 20 mcg of Levophed and 0.03 vasopressin and sedated on 20 mcg of propofol. Patient WBC increased today and he is hypokalemic. We will treat hyperkalemia. Patient had a CT chest and abdomen/pelvis pending. The time examination total of 450, rate 20, PEEP of 6 and 35 percent FiO2. Per RN, Dr Pollock has stated that the patient will be returning to the OR today for likely anastomosis seen on CT abdomen/pelvis. Hospitalist Physical - Constitutional Vitals: Temp Pulse Resp BP Pulse Ox 99.3 F 124 H 35 H 101/35 98 01/01/21 08:00 01/01/21 11:47 01/01/21 08:00 01/01/21 11:47 01/01/21 11:47 General appearance: Present: no acute distress, other (Sedated on mechanical ventilation) - EENT Eyes: Present: PERRL ENT: poor dentition - Neck Neck: Absent: masses or JVD, cervical LAD - Respiratory Respiratory effort: normal Respiratory: bilateral: diminished - Cardiovascular Rhythm: irregularly irregular Heart Sounds: Present: S1 & S2. Absent: systolic murmur, diastolic murmur - Extremities Extremities: no ischemia, pulses intact, pulses symmetrical, No edema, normal temperature, normal color Peripheral Pulses: within normal limits - Abdominal General gastrointestinal: distended, rigid, absent bowel sounds - Integumentary Integumentary: Present: warm, dry - Neurologic Neurologic: other (sedated and intubated) - Allied Health Allied health notes reviewed: nursing HEART Score - HEART Score Troponin: Troponin T 0.021 ng/mL (0.00-0.029) 12/22/20 14:38 Results - Labs CBC & Chem 7: 01/01/21 07:31 01/01/21 07:31 Labs: Laboratory Last Values WBC 26.1 K/mm3 (4.5-11.0) H 01/01/21 07:31 RBC 2.95 M/mm3 (3.65-5.03) L 01/01/21 07:31 Hgb 8.6 gm/dl (11.8-15.2) L 01/01/21 07:31 Hct 27.1 % (35.5-45.6) L 01/01/21 07:31 MCV 92 fl (84-94) 01/01/21 07:31 MCH 29 pg (28-32) 01/01/21 07:31 MCHC 32 % (32-34) 01/01/21 07:31 RDW 18.2 % (13.2-15.2) H 01/01/21 07:31 Plt Count 258 K/mm3 (140-440) 01/01/21 07:31 Lymph % (Auto) 6.5 % (13.4-35.0) L 12/28/20 05:40 [place] % (Auto) 16.7 % (0.0-7.3) H 12/28/20 05:40 Eos % (Auto) 3.2 % (0.0-4.3) 12/28/20 05:40 Baso % (Auto) 1.0 % (0.0-1.8) 12/28/20 05:40 Lymph # (Auto) 0.3 K/mm3 (1.2-5.4) L 12/28/20 05:40 [place] # (Auto) 0.7 K/mm3 (0.0-0.8) 12/28/20 05:40 Eos # (Auto) 0.1 K/mm3 (0.0-0.4) 12/28/20 05:40 Baso # (Auto) 0.0 K/mm3 (0.0-0.1) 12/28/20 05:40 Add Manual Diff Complete 01/01/21 07:31 Total Counted 100 01/01/21 07:31 Seg Neutrophils % 71.1 % (40.0-70.0) H 12/28/20 05:40 Seg Neuts % (Manual) 96.0 % (40.0-70.0) H 01/01/21 07:31 Band Neutrophils % 1.0 % 12/29/20 05:16 Lymphocytes % (Manual) 4.0 % (13.4-35.0) L 01/01/21 07:31 Reactive Lymphs % (Man) 1.0 % 12/29/20 05:16 Monocytes % (Manual) 3.0 % (0.0-7.3) 12/31/20 06:51 Eosinophils % (Manual) 2.0 % (0.0-4.3) 12/29/20 05:16 Metamyelocytes % 2.0 % 12/29/20 05:16 Nucleated RBC % Not Reportable 01/01/21 07:31 Seg Neutrophils # 3.1 K/mm3 (1.8-7.7) 12/28/20 05:40 Seg Neutrophils # Man 25.1 K/mm3 (1.8-7.7) H 01/01/21 07:31 Band Neutrophils # 0.0 K/mm3 01/01/21 07:31 Lymphocytes # (Manual) 1.0 K/mm3 (1.2-5.4) L 01/01/21 07:31 Abs React Lymphs (Man) 0.0 K/mm3 01/01/21 07:31 Monocytes # (Manual) 0.0 K/mm3 (0.0-0.8) 01/01/21 07:31 Eosinophils # (Manual) 0.0 K/mm3 (0.0-0.4) 01/01/21 07:31 Basophils # (Manual) 0.0 K/mm3 (0.0-0.1) 01/01/21 07:31 Metamyelocytes # 0.0 K/mm3 01/01/21 07:31 Myelocytes # 0.0 K/mm3 01/01/21 07:31 Promyelocytes # 0.0 K/mm3 01/01/21 07:31 Blast Cells # 0.0 K/mm3 01/01/21 07:31 WBC Morphology Not Reportable 01/01/21 07:31 Hypersegmented Neuts Not Reportable 01/01/21 07:31 Hyposegmented Neuts Not Reportable 01/01/21 07:31 Hypogranular Neuts Not Reportable 01/01/21 07:31 Smudge Cells Not Reportable 01/01/21 07:31 Toxic Granulation Not Reportable 01/01/21 07:31 Toxic Vacuolation Not Reportable 01/01/21 07:31 Dohle Bodies Not Reportable 01/01/21 07:31 Pelger-Huet Anomaly Not Reportable 01/01/21 07:31 Lamar Rods Not Reportable 01/01/21 07:31 Platelet Estimate Consistent w auto 01/01/21 07:31 Clumped Platelets Not Reportable 01/01/21 07:31 Plt Clumps, EDTA Not Reportable 01/01/21 07:31 Large Platelets Not Reportable 01/01/21 07:31 Giant Platelets Not Reportable 01/01/21 07:31 Platelet Satelliting Not Reportable 01/01/21 07:31 Plt Morphology Comment Not Reportable 01/01/21 07:31 RBC Morphology Not Reportable 01/01/21 07:31 Dimorphic RBCs Not Reportable 01/01/21 07:31 Polychromasia Not Reportable 01/01/21 07:31 Hypochromasia Not Reportable 01/01/21 07:31 Poikilocytosis Not Reportable 01/01/21 07:31 Anisocytosis Not Reportable 01/01/21 07:31 Microcytosis Not Reportable 01/01/21 07:31 Macrocytosis Not Reportable 01/01/21 07:31 Spherocytes Not Reportable 01/01/21 07:31 Pappenheimer Bodies Not Reportable 01/01/21 07:31 Sickle Cells Not Reportable 01/01/21 07:31 Target Cells Not Reportable 01/01/21 07:31 Tear Drop Cells Not Reportable 01/01/21 07:31 Ovalocytes Rare 01/01/21 07:31 Helmet Cells Not Reportable 01/01/21 07:31 [place] Bodies Not Reportable 01/01/21 07:31 [place] Rings Not Reportable 01/01/21 07:31 Jenny Cells Not Reportable 01/01/21 07:31 Bite Cells Not Reportable 01/01/21 07:31 Crenated Cell Not Reportable 01/01/21 07:31 Elliptocytes Not Reportable 01/01/21 07:31 Acanthocytes (Spur) Not Reportable 01/01/21 07:31 Rouleaux Not Reportable 01/01/21 07:31 Hemoglobin C Crystals Not Reportable 01/01/21 07:31 Schistocytes Not Reportable 01/01/21 07:31 Malaria parasites Not Reportable 01/01/21 07:31 Lucas Bodies Not Reportable 01/01/21 07:31 Hem Pathologist Commnt No 01/01/21 07:31 PT 13.8 Sec. (12.2-14.9) 12/22/20 14:38 INR 1.07 (0.87-1.13) 12/22/20 14:38 APTT 25.1 Sec. (24.2-36.6) 12/22/20 14:38 ABG pH 7.391 (7.320-7.450) 01/01/21 03:03 POC ABG pCO2 33.3 mmHg (32.0-48.0) 01/01/21 03:03 ABG pCO2 33.9 mm Hg 12/31/20 09:38 POC ABG pO2 79.6 mmHg (83-108) L 01/01/21 03:03 ABG pO2 354.0 mm Hg (80.0-90.0) H 12/31/20 09:38 POC ABG HCO3 19.8 01/01/21 03:03 ABG HCO3 22.0 mmol/L (20.0-26.0) 12/31/20 09:38 ABG O2 Saturation 95.6 (0-100) 01/01/21 03:03 ABG O2 Content 13.5 (0.0-44) 12/31/20 09:38 POC ABG Base Excess -4.6 01/01/21 03:03 ABG Base Excess -1.9 mmol/L (-2.0-3.0) 12/31/20 09:38 ABG Hemoglobin 9.2 (12.0-17.5) L 01/01/21 03:03 ABG Oxyhemoglobin 94.1 (94-98) 01/01/21 03:03 ABG Carboxyhemoglobin 1.0 % (0.0-5.0) 12/31/20 09:38 ABG Methemoglobin 0.3 (0.0-1.5) 01/01/21 03:03 ABG Sodium 131.6 mmol/L (136.0-145.0) L 01/01/21 03:03 ABG Potassium 5.8 mmol/L (3.40-4.50) H 01/01/21 03:03 ABG Chloride 102.0 mmol/L (98-107) 01/01/21 03:03 ABG Glucose 177 mg/dL (65-95) H 01/01/21 03:03 Oxyhemoglobin 97.9 % (95.0-99.0) 12/31/20 09:38 Carboxyhemoglobin 1.3 (0.5-1.5) 01/01/21 03:03 FiO2 100 % 12/31/20 09:38 FiO2 % 35.0 01/01/21 03:03 Sodium 137 mmol/L (137-145) 01/01/21 07:31 Potassium 6.0 mmol/L (3.6-5.0) H 01/01/21 07:31 Chloride 99.2 mmol/L (98-107) 01/01/21 07:31 Carbon Dioxide 21 mmol/L (22-30) L 01/01/21 07:31 Anion Gap 23 mmol/L 01/01/21 07:31 BUN 89 mg/dL (9-20) H 01/01/21 07:31 Creatinine 10.5 mg/dL (0.8-1.3) H 01/01/21 07:31 Estimated GFR 6 ml/min 01/01/21 07:31 BUN/Creatinine Ratio 8 % 01/01/21 07:31 Glucose 179 mg/dL (75-100) H 01/01/21 07:31 POC Glucose 167 mg/dL (70-105) H 01/01/21 05:04 Lactic Acid 1.40 mmol/L (0.7-2.0) 12/24/20 15:06 Calcium 9.0 mg/dL (8.4-10.2) 01/01/21 07:31 Phosphorus 2.80 mg/dL (2.5-4.5) 12/31/20 06:51 Magnesium 1.60 mg/dL (1.7-2.3) L 12/31/20 06:51 Total Bilirubin 2.40 mg/dL (0.1-1.2) H 12/30/20 09:00 AST 85 units/L (5-40) H 12/30/20 09:00 ALT 25 units/L (7-56) 12/30/20 09:00 Alkaline Phosphatase 216 units/L (35-129) H 12/30/20 09:00 Ammonia 30.0 umol/L (25-60) 12/22/20 14:38 Troponin T 0.021 ng/mL (0.00-0.029) 12/22/20 14:38 Total Protein 5.3 g/dL (6.3-8.2) L 12/30/20 09:00 Albumin 2.6 g/dL (3.9-5) L 12/30/20 09:00 Albumin/Globulin Ratio 1.0 % 12/30/20 09:00 Triglycerides 155 mg/dL (2-149) H 12/30/20 09:00 Lipase 41 units/L (13-60) 12/22/20 14:38 Procalcitonin > 200.00 ng/mL (<0.15) 12/24/20 15:06 TSH 1.470 mlU/mL (0.270-4.200) 12/28/20 19:44 Arterial Blood Glucose 177 mg/dL (65-95) H 01/01/21 03:03 Arterial Blood Ionized Calcium 4.9 mg/dL (4.6-5.3) 01/01/21 03:03 Urine Color Yellow (Yellow) 12/22/20 18:53 Urine Turbidity Clear (Clear) 12/22/20 18:53 Urine pH 7.0 (5.0-7.0) 12/22/20 18:53 Ur Specific [place] 1.012 (1.003-1.030) 12/22/20 18:53 Urine Protein >500 mg/dL (Negative) 12/22/20 18:53 Urine Glucose (UA) Neg mg/dL (Negative) 12/22/20 18:53 Urine Ketones Neg mg/dL (Negative) 12/22/20 18:53 Urine Blood Neg (Negative) 12/22/20 18:53 Urine Nitrite Neg (Negative) 12/22/20 18:53 Urine Bilirubin Neg (Negative) 12/22/20 18:53 Urine Urobilinogen < 2.0 mg/dL (<2.0) 12/22/20 18:53 Ur Leukocyte Esterase Neg (Negative) 12/22/20 18:53 Urine WBC (Auto) < 1.0 /HPF (0.0-6.0) 12/22/20 18:53 Urine RBC (Auto) 1.0 /HPF (0.0-6.0) 12/22/20 18:53 Fluid Type Dialysate 12/22/20 Unknown Fluid Color Colorless 12/22/20 Unknown Fluid Appearance Cloudy 12/22/20 Unknown Fluid WBC 208 /mm3 12/22/20 Unknown Fluid RBC 45 /mm3 12/22/20 Unknown Fluid Seg Neutrophils 82.0 % 12/22/20 Unknown Fluid Lymphocytes 11.0 % 12/22/20 Unknown Fluid Reactive Lymphs 0 % 12/22/20 Unknown Fluid Monocytes 7.0 % 12/22/20 Unknown Fluid Eosinophils 0 % 12/22/20 Unknown Fluid Basophils 0 % 12/22/20 Unknown Random Vancomycin 13.7 ug/mL (0-40.0) 12/26/20 Unknown Hepatitis A IgM Ab Non-reactive (NonReactive) 12/23/20 11:38 Hep Bs Antigen Non-reactive (Negative) 12/23/20 11:38 Hep B Core IgM Ab Non-reactive (NonReactive) 12/23/20 11:38 Hepatitis C Antibody Non-reactive (NonReactive) 12/23/20 11:38 Blood Type A POSITIVE 01/01/21 11:31 Antibody Screen Negative 12/23/20 11:40 Crossmatch See Detail 12/23/20 11:40 Jeffery/IV: Voiding Method Incontinent Active Medications - Current Medications Current Medications: Generic Name Dose Route Start Last Admin Trade Name Freq PRN Reason Stop Dose Admin Acetaminophen 650 mg 12/31/20 15:30 12/31/20 15:13 Acetaminophen 650 Mg Rect Supp DC 650 mg Q6H PRN Administration Non Cardiac Pain or Temp>100.5 Albuterol 2.5 mg 12/22/20 19:42 Albuterol 2.5 Mg/3 Ml Nebu IH Q4HRT PRN Shortness Of Breath Digoxin 0.125 mg 12/31/20 10:00 12/31/20 09:35 Digoxin 0.5 Mg/2 Ml Inj IV Not Given Q48HR THOMAS Famotidine 10 mg 12/24/20 13:00 01/01/21 09:25 Famotidine 20 Mg/2 Ml Inj IV 10 mg BID THOMAS Administration Fentanyl 50 mcg 12/24/20 11:35 01/01/21 11:28 Fentanyl 100 Mcg/2 Ml Inj IV 50 mcg Q10MIN PRN Administration ANALGESIA Haloperidol Lactate 5 mg 12/29/20 14:16 12/31/20 00:19 Haloperidol Lactate 5 Mg/1 Ml Inj IV 5 mg Q12H PRN Administration Agitation Heparin Sodium (Porcine) 5,000 unit 12/24/20 10:00 01/01/21 09:25 Heparin 5,000 Unit/1 Ml Vial SUB-Q 5,000 unit Q12HR THOMAS Administration Hydralazine HCl 10 mg 12/30/20 12:00 01/01/21 09:28 Hydralazine 20 Mg/1 Ml Inj IV Not Given Q4HR THOMAS Hydrophilic Ointment 1 applic 12/31/20 06:39 Lip Therapy Vaseline TP Q2HR PRN Dry Lips Sodium Chloride 100 mls @ 999 mls/hr 12/23/20 11:03 Nacl 0.9% IV RYLAND PRN Hypotension Propofol 1,000 mg in 100 mls @ 5.484 mls/hr 12/23/20 19:00 01/01/21 09:25 Diprivan 10 Mg/Ml IV Infused TITR THOMAS Titration Protocol 10 MCG/KG/MIN Fluconazole 200 mg in 100 mls @ 100 mls/hr 12/27/20 13:00 01/01/21 12:09 Diflucan IV 100 mls/hr Q24H THOMAS Administration Protocol Fentanyl Citrate 2,000 mcg in 100 mls @ 4.725 mls/hr 12/31/20 08:00 Fentanyl Drip Premix IV TITR THOMAS Protocol 1 MCG/KG/HR NORepinephrine/NS 8 MG-250 ML 8 mg in 250 mls @ 3.75 mls/hr 12/31/20 09:00 01/01/21 09:34 Norepinephrine/Ns 8 Mg-250 Ml (Double Conc) IV 18 mcg/min TITRATE THOMAS 33.75 mls/hr Titration Protocol 2 MCG/MIN Piperacillin Sod/Tazobactam Sod 2.25 gm in 50 mls @ 100 mls/hr 12/31/20 12:00 01/01/21 12:09 Zosyn/Ns 2.25 Gm/50ml IV 01/06/21 20:29 100 mls/hr Q8H [facility] Administration Protocol Amino Acids/Electrolytes/Dextrose 2,016 mls @ 84 mls/hr 12/31/20 20:00 12/31/20 20:49 Tpn Adult IV 01/01/21 19:59 84 mls/hr DAILY@[email or web address] [facility] Administration Protocol Vasopressin 20 unit/ Sodium 101 mls @ 9.09 mls/hr 12/31/20 21:00 01/01/21 07:50 Chloride IV 0.03 units/min TITR THOMAS 9.09 mls/hr Administration Protocol 0.03 UNITS/MIN Phenylephrine HCl 100 mg/ 100 mls @ 3 mls/hr 12/31/20 23:45 01/01/21 11:41 Sodium Chloride IV 100 mcg/min TITR THOMAS 6 mls/hr Administration Protocol 50 MCG/MIN Amino Acids/Electrolytes/Dextrose 2,016 mls @ 84 mls/hr 01/01/21 20:00 Tpn Adult IV 01/02/21 19:59 DAILY@[email or web address] [facility] Protocol Metoprolol Tartrate 5 mg 12/30/20 12:00 01/01/21 09:28 Metoprolol Tartrate 5 Mg/5 Ml Inj IV Not Given Q4HR [facility] Morphine Sulfate 2 mg 12/23/20 10:00 12/31/20 02:33 Morphine 2 Mg/1 Ml Inj IV 2 mg Q4H PRN Administration Pain, Moderate (4-6) Multi-Ingred Cream/Lotion/Oil/Oint 1 applic 12/31/20 06:39 Mineral Oil/Petrolatum, White Ophth Oint 3.5 Gm OU Q4HR PRN Dry Eye(s) Ondansetron HCl 4 mg 12/22/20 19:42 12/31/20 02:36 Ondansetron 4 Mg/2 Ml Inj IV 4 mg Q8H PRN Administration Nausea And Vomiting Scopolamine 1 each 12/28/20 16:00 12/31/20 15:11 Scopolamine Transdermal Patch 72 Hr TD 1 each Q72H THOMAS Administration Sodium Chloride 10 ml 12/22/20 22:00 01/01/21 09:28 Sodium Chloride 0.9% 10 Ml Flush Syringe IV 10 ml BID THOMAS Administration Sodium Chloride 10 ml 12/22/20 19:42 Sodium Chloride 0.9% 10 Ml Flush Syringe IV PRN PRN LINE FLUSH Nutrition/Malnutrition Assess - Dietary Evaluation Nutrition/Malnutrition Findings: Nutrition Notes Start: 12/24/20 12:36 Freq: Status: Active Protocol: Document 01/01/21 10:33 (Rec: 01/01/21 10:42 [email or web address]) Nutrition Notes Initial or Follow up Reassessment Current Diagnosis CKD (stage V CKD),Sepsis, Hypertension,Heart Failure Other Pertinent Diagnosis bacterial peritonitis, on HD MWF/PRN, SBO, Crohns disease, Anemia Current Diet TPN at 84 ml/hr Labs/Tests K 6 BUN 89 Cr 10.5 Pertinent Medications Propofol at 5.484 ml/hr (145 kcal) Norepinnephrine Vasopressin Zofran Height 5 ft 7 in Weight 94.5 kg [place] Body Weight (kg) 67.27 BMI 32.6 Weight Status Obese Subjective/Other Information TPN day 7. Surgry wants NGT to remain LIS at this time. Percent of energy/protein needs met: 70%/100% Burn Absent Trauma Absent Difficulty In Swallowing Skin Integrity/Comment Intact Current % PO Negligible Minimum of two criteria No physical signs of malnutrition #1 Nutrition Diagnosis Inadequate oral intake Diagnosis Progress(for reassessment Continues documentation) Is patient on ventilator? Yes Is Patient Ambulatory and/or Out of Bed No [facility] 2048.168 Kcal/Kg value to use for calculation 21 Approximate Energy Requirements Using 1985 kcal/Kg Calculation Used for Recommendations Kcal/kg Additional Notes Protein needs: >97g (>1.2g/kg AdjBW) fluid needs: 1 mL/kcal or per MD Nutrition Intervention Change Diet Order: Continue TPN Nutrition Support: TPN at 84ml/hr: AA 5% Dextrose 14.9% Ca 0 mEq Cl/Acetate 25%/75% 1367 mOsm Kcal 1,420 Protein (gm) 100 Carbohydrates (gm) 300 Fat (gm) 0 Fluid (mL) 2,016 Goal #1 Meet kcal and protein needs as best as possible Anticipated Discharge Needs: unable to determine at this time Follow-Up By: 01/02/21 Additional Comments Labs in AM: BMP, Mg and Phos
--- NOTE | 2021-01-01 12:45 | Progress Note ---
Assessment and Plan POD#9 s/p ex lap with extensive lysis of adhesions and two small bowel resections with primary anastamosis for SBO with necrotic segement small bowel. With new suspected bowel perforation. Febrile and unstable requiring vaso support. Spoke with daughter Cristopher and got consent for emergent exploratory laparotomy and all indicated procedures. Prognosis is gaurded. Will likey do 'damage control' procedures and leave abdomen open with the plan to bring him back in 24-48 hours for definitive care. Subjective Date of service: 01/01/21 Narrative: Pt had CT scan of the abdomen and pelvis that showed free air and extravasation of contrast suggestive of perforation. He was started on vasopressors overnight. Objective Vital Signs - 12hr 01/01/21 01/01/21 01/01/21 01:01 01:31 02:01 Temperature Pulse Rate 124 H 111 H 93 H Pulse Rate [ From Monitor] Respiratory 35 H 35 H 36 H Rate Blood Pressure 124/86 124/86 133/81 O2 Sat by Pulse 93 100 Oximetry 01/01/21 01/01/21 01/01/21 02:31 03:01 03:31 Temperature Pulse Rate 98 H 108 H 111 H Pulse Rate [ From Monitor] Respiratory 38 H 36 H 36 H Rate Blood Pressure 149/93 132/73 116/76 O2 Sat by Pulse 100 100 99 Oximetry 01/01/21 01/01/21 01/01/21 03:52 04:00 04:01 Temperature 99.5 F Pulse Rate 116 H 110 H Pulse Rate [ 116 H From Monitor] Respiratory 36 H 35 H Rate Blood Pressure 127/82 O2 Sat by Pulse 96 98 Oximetry 01/01/21 01/01/21 01/01/21 04:18 04:30 05:01 Temperature Pulse Rate 114 H 111 H 119 H Pulse Rate [ From Monitor] Respiratory 35 H 36 H Rate Blood Pressure 119/83 138/83 142/81 O2 Sat by Pulse 98 97 94 Oximetry 01/01/21 01/01/21 01/01/21 05:31 06:05 06:14 Temperature Pulse Rate 120 H 124 H 116 H Pulse Rate [ From Monitor] Respiratory 33 H 36 H Rate Blood Pressure 123/79 97/56 O2 Sat by Pulse 97 97 Oximetry 01/01/21 01/01/21 01/01/21 06:15 06:16 06:18 Temperature Pulse Rate 121 H 122 H 116 H Pulse Rate [ From Monitor] Respiratory Rate Blood Pressure 122/71 122/71 122/71 O2 Sat by Pulse Oximetry 01/01/21 01/01/21 01/01/21 06:19 06:30 07:00 Temperature Pulse Rate 120 H 120 H 117 H Pulse Rate [ From Monitor] Respiratory 35 H 34 H Rate Blood Pressure 121/71 127/76 130/73 O2 Sat by Pulse 95 97 Oximetry 01/01/21 01/01/21 01/01/21 07:30 08:00 09:06 Temperature 99.3 F Pulse Rate 115 H 119 H 115 H Pulse Rate [ 118 H From Monitor] Respiratory 36 H 35 H Rate Blood Pressure 123/70 114/71 123/75 O2 Sat by Pulse 95 96 99 Oximetry 01/01/21 11:47 Temperature Pulse Rate 124 H Pulse Rate [ From Monitor] Respiratory Rate Blood Pressure 101/35 O2 Sat by Pulse 98 Oximetry - General physical appearance other (sedated and intubated) - Respiratory normal expansion, normal respiratory effort, other (on vent) - Abdomen not soft, distended - Labs 01/01/21 07:31 01/01/21 07:31 Diabetes panel 01/01/21 Range/Units 07:31 Sodium 137 (137-145) mmol/L Potassium 6.0 H (3.6-5.0) mmol/L Chloride 99.2 (98-107) mmol/L Carbon Dioxide 21 L (22-30) mmol/L BUN 89 H (9-20) mg/dL Creatinine 10.5 H (0.8-1.3) mg/dL Glucose 179 H (75-100) mg/dL Calcium 9.0 (8.4-10.2) mg/dL Calcium panel 01/01/21 Range/Units 07:31 Calcium 9.0 (8.4-10.2) mg/dL Pituitary panel 01/01/21 Range/Units 07:31 Sodium 137 (137-145) mmol/L Potassium 6.0 H (3.6-5.0) mmol/L Chloride 99.2 (98-107) mmol/L Carbon Dioxide 21 L (22-30) mmol/L BUN 89 H (9-20) mg/dL Creatinine 10.5 H (0.8-1.3) mg/dL Glucose 179 H (75-100) mg/dL Calcium 9.0 (8.4-10.2) mg/dL Adrenal panel 01/01/21 Range/Units 07:31 Sodium 137 (137-145) mmol/L Potassium 6.0 H (3.6-5.0) mmol/L Chloride 99.2 (98-107) mmol/L Carbon Dioxide 21 L (22-30) mmol/L BUN 89 H (9-20) mg/dL Creatinine 10.5 H (0.8-1.3) mg/dL Glucose 179 H (75-100) mg/dL Calcium 9.0 (8.4-10.2) mg/dL
--- NOTE | 2021-01-01 12:57 | Anesthesia Day of Surgery ---
Anesthesia Day of Surgery - Day of Surgery Patient Examined: Yes Patient H&P Reviewed: Yes Patient is NPO: Yes
[2021-01-01 13:14] LABS: INR 1.39 (0.87-1.13)
[2021-01-01] MEDS ORDERED: SODIUM CHLORIDE 0.9% IRR 1,500 ML BOTTLE IR ONE (13:17)
[2021-01-01] MEDS ORDERED: SODIUM CHLORIDE 0.9% 1000 ML 1,000 ML ONE (13:27)
[2021-01-01] MEDS ORDERED: ESMOLOL 100 MG/10 ML INJ IV ONE (13:49)
[2021-01-01] MEDS ORDERED: PHENYLEPHRINE/NS 1,000 MCG/10 ML SYRINGE (OR USE) IV ONE (14:01)
[2021-01-01] MEDS ORDERED: ROCURONIUM 50 MG/5 ML INJ IV ONE ×2 (14:01→15:15)
--- NOTE | 2021-01-01 14:12 | Progress Note ---
Assessment and Plan - Patient Problems (1) Atrial fibrillation Current Visit: Yes Status: Acute Plan to address problem: 60-year-old man with a history of a resolving nonischemic cardiomyopathy, status post expiratory laparotomy for small bowel obstruction, developed new onset rapid atrial fibrillation post operatively. An echocardiogram on this presentation shows normal left ventricular systolic function with ejection fraction 55%, normalized from 30 to 35% several years ago. He is returned to the operating room today for management of a suspected anastomotic leak. We will continue medical therapy for paroxysmal atrial fibrillation. Subjective Date of service: 01/01/21 Principal diagnosis: Ac hypoxemic resp failure; Severe Sepsis; Peritonitis; Acute SBO; ESRD; CHF Interval history: Patient is being taken down to the operating room today, for emergency surgery for a suspected anastomotic leak following his recent expiratory laparotomy. 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 Objective Vital Signs Temp Pulse Pulse Resp BP Pulse Ox 01/01/21 12:00 122 H 01/01/21 11:47 124 H 101/35 98 01/01/21 09:06 115 H 123/75 99 01/01/21 08:00 99.3 F 116 H 118 H 35 H 114/71 96 01/01/21 07:30 115 H 36 H 123/70 95 01/01/21 07:00 117 H 34 H 130/73 97 01/01/21 06:30 120 H 35 H 127/76 95 01/01/21 06:19 120 H 121/71 01/01/21 06:18 116 H 122/71 01/01/21 06:16 122 H 122/71 01/01/21 06:15 121 H 122/71 01/01/21 06:14 116 H 97/56 01/01/21 06:05 124 H 36 H 97 01/01/21 05:31 120 H 33 H 123/79 97 01/01/21 05:01 119 H 36 H 142/81 94 01/01/21 04:30 111 H 35 H 138/83 97 01/01/21 04:18 114 H 119/83 98 01/01/21 04:01 110 H 35 H 127/82 98 01/01/21 04:00 116 H 116 H 36 H 96 01/01/21 03:52 99.5 F 01/01/21 03:31 111 H 36 H 116/76 99 01/01/21 03:01 108 H 36 H 132/73 100 01/01/21 02:31 98 H 38 H 149/93 100 01/01/21 02:01 93 H 36 H 133/81 100 01/01/21 01:31 111 H 35 H 124/86 01/01/21 01:01 124 H 35 H 124/86 93 01/01/21 00:35 118 H 124/86 98 01/01/21 00:31 120 H 19 124/86 95 01/01/21 00:01 121 H 27 H 121/88 94 01/01/21 00:00 99.8 F H 121 H 121 H 41 H 96 12/31/20 23:31 117 H 35 H 83/62 98 12/31/20 23:01 126 H 29 H 114/86 98 12/31/20 22:31 121 H 17 114/75 94 12/31/20 22:01 131 H 28 H 135/86 94 12/31/20 21:31 122 H 41 H 139/109 95 12/31/20 21:00 112 H 36 H 103/69 96 12/31/20 20:30 111 H 36 H 95/70 96 12/31/20 20:00 99.2 F 111 H 110 H 37 H 90/66 96 12/31/20 19:30 115 H 34 H 89/62 98 12/31/20 19:00 114 H 35 H 79/53 97 12/31/20 18:42 116 H 93/59 12/31/20 18:30 116 H 36 H 98/60 97 12/31/20 18:08 114 H 93/59 12/31/20 18:01 119 H 35 H 93/59 96 12/31/20 17:30 118 H 36 H 89/58 95 12/31/20 17:00 118 H 36 H 89/57 98 12/31/20 16:30 122 H 36 H 82/52 96 12/31/20 16:00 100.2 F H 114 H 120 H 36 H 98/54 95 12/31/20 15:55 122 H 98/54 98 12/31/20 15:31 92/55 99 12/31/20 15:01 131 H 38 H 88/49 100 12/31/20 14:35 115 H 102/57 12/31/20 14:34 114 H 102/57 12/31/20 14:31 142 H 42 H 100/64 95 - Physical Examination General: Other (Sedated, on the vent) HEENT: Positive: PERRL Neck: Positive: neck supple Cardiac: Positive: irregularly irregular Lungs: Positive: Decreased Breath Sounds Neuro: Positive: Weakness (Sedated, on the vent) Abdomen: Positive: Soft Skin: Positive: Clear Extremities: Absent: edema - Labs and Meds Coagulation 01/01/21 Range/Units 12:45 PT 16.9 H (12.2-14.9) Sec. INR 1.39 H (0.87-1.13) CBC 01/01/21 Range/Units 07:31 WBC 26.1 H (4.5-11.0) K/mm3 RBC 2.95 L (3.65-5.03) M/mm3 Hgb 8.6 L (11.8-15.2) gm/dl Hct 27.1 L (35.5-45.6) % Plt Count 258 (140-440) K/mm3 Comprehensive Metabolic Panel 01/01/21 Range/Units 07:31 Sodium 137 (137-145) mmol/L Potassium 6.0 H (3.6-5.0) mmol/L Chloride 99.2 (98-107) mmol/L Carbon Dioxide 21 L (22-30) mmol/L BUN 89 H (9-20) mg/dL Creatinine 10.5 H (0.8-1.3) mg/dL Glucose 179 H (75-100) mg/dL Calcium 9.0 (8.4-10.2) mg/dL - Allied health notes Allied health notes reviewed: nursing
[2021-01-01] MEDS ORDERED: SODIUM CHLORIDE 0.9% 100 ML ONE (14:24)
[2021-01-01] MEDS ORDERED: PHENYLEPHRINE 10 MG/1 ML INJ SDV ONE (14:24)
--- NOTE | 2021-01-01 16:26 | Operative Report ---
Operative Report Operative Report: Date: January 01, 2021 Surgeon: Adri Sanchez MD Scrip Clerk surgeon: Radha Pollock DO Procedure:1. Exploratory laparotomy, 2. Small bowel resection, 3. Partial omentectomy, 4. Abdominal washout, 5. Removal of peritoneal dialysis catheter, 6. ABThera wound VAC placement Anesthesia: General Indication: Mr. Reyes is a 60-year-old male who is postop day 9 status post exploratory laparotomy with 2 segmental small bowel resections for small bowel obstruction. Patient had an unremarkable postoperative course until the last 48 hours when he had an acute spike in his white blood cell count, was tachycardic, and required reintubation and placed on a ventilator with eventual vasopressor support. A CT scan of his abdomen and pelvis showed a significant amount of free air and fluid with extravasation of contrast consistent with bowel perforation. Consent was obtained from his daughter and he was emergently taken to surgery. Details of procedure: Patient was brought into the OR suite laid in supine position. He was transferred to the OR table. General anesthesia was induced through his previously placed endotracheal tube. After timeout, his dwayne were removed and his transfascial sutures were released. There was immediately noticed copious amount of bilious fluid and enteric contents. This was vigorously suctioned. His small bowel loops were and inspected. There was noted to be a hole at his distal anastomosis. This was quickly oversewn to prevent further spillage. This distal anastomosis was resected using SAI stapler. The mesentery was transected using an Enseal device. Remaining small bowel ends were viable. Of note the terminal ileum segment that was left, was short and thickened, and not adequate for another anastomosis. Patient was noted to be oozy throughout the entire case. There was a segment of omentum that was bruised and oozy as well resulting in this making the decision to resected with endoseal. His abdominal cavity was copiously irrigated with normal normal saline until clear. We then mobilized the right colon to the hepatic flexure, in anticipation when he is returned to the OR in 48 hours we will do a small bowel to colon anastomosis. His peritoneal dialysis catheter was removed after releasing both of the felt cuffs. It was sent off a specimen along with the small bowel, and omentum. Once hemostasis was achieved, an ABThera wound VAC was placed with a setting of a -125 mmHg. The patient is currently left in discontinuity, with a plan to take him back in 48 hours to fully mobilized the right colon, resected terminal ileum and proximal colon and complete a small bowel colonic anastomosis. Patient remained stable but did require pressure support during the procedure he was transferred to ICU in stable condition. EBL: About 500 mL Fluids given: 2 units PRBC, 1 unit FFP Specimen: Small bowel resection, partial omentum, peritoneal dialysis catheter Complication: None immediate
--- NOTE | 2021-01-01 17:04 | Post Anesthesia Evaluation ---
- Post Anesthesia Evaluation Patient Participated: No Airway Patent: Yes Stable Respiratory Function: Yes Nausea/Vomiting: No Temp > 96.8F: Yes Pain Manageable: Yes Adequeate Hydration: Yes Anesthesia Complications: No Block Receding Appropriately: Not Applicable Patient on Ventilator: Yes
[2021-01-01 18:29] LABS: Hematocrit 29.6 % (35.5-45.6); Hemoglobin 9.3 gm/dl (11.8-15.2); Mean Corpuscular HGB Conc 32 % (32-34); Mean Corpuscular Volume 94 fl (84-94); Platelet Count 231 K/mm3 (140-440); Red Blood Count 3.14 M/mm3 (3.65-5.03); Red Cell Distribution Width 17.5 % (13.2-15.2)
--- NOTE | 2021-01-01 18:46 | Event Note ---
Patient not seen on nephrology rounds as he was in OR for surgical procedure. Note labs-> K 6.0. Given instability s/p surgery, will plan for HD in AM unless clinically worsens with telemetry changes
[2021-01-01 18:58] LABS: Albumin 1.9 g/dL (3.9-5); Calcium 8.4 mg/dL (8.4-10.2)
[2021-01-01] MEDS: fentaNYL DRIP Premix 2,000 MCG/100 ML BAG IV SCH (19:12)
--- NOTE | 2021-01-01 19:30 | Progress Note ---
Assessment and Plan Acute hypoxemic respiratory failure, on mechanical ventilatory support. Severe Sepsis with septic shock Peritonitis Acute small-bowel obstruction with tissue necrosis. End-stage renal disease, on dialysis. Hypertension. Crohn's disease. Gastroesophageal reflux disease. Heart failure with reduced ejection fraction. Hyperkalemia. Anemia that is normocytic. Lactic acidosis. Oropharyngeal dysphagia Continue with vasopressor support ,wean for MAP >65 Severe hyperkalemia-Medical management of hyperkalemia- Start bicarbonate infusion, IV calcium administered, glucose and insulin therapy Discussed with RN, if any changes on telemetry to notify me. HD early in the morning per Renal NPO, on TPN Antibitoics per ID Hold off on SAt and SBT for 24 hours. Needs better hemodynamic stability prior to initiation of trials. - continue to wean supplemental oxygen for target O2 sats > 92% - VAP bundle addressed - continue lung protective strategies - continue bronchodilators with pulmonary hygiene per RT - wean per pulmonary driven protocols otherwise - HD/UF per nephrology prescription for toxin and volume control - avoid nephrotoxins, renally dose all medications - continue accuchecks with glycemic control per SSI (While critically ill target blood glucose of 140-180 mg/dL; avoid hypoglycemia) - sedation prn for target RASS 0 to -1 - continue to avoid benzodiazepine's, reduce the possibility of delirium - Broad spectrum antibiotics per ID rec's - prn analgesia per CPOT score - Maintenance of sleep-wake cycle, avoid delirium - Stress ulcer and VTE prophylaxis - continue mobility protocols for pressure ulcer prophylaxis - Monitor hemodynamics closely - continue other care per attending / other consultants CONDITION: CRITICAL PROGNOSIS: GUARDED CODE STATUS: FULL CODE The high probability of a clinically significant, sudden or life-threatening deterioration of the [respiratory, cardiovascular, GI & neurologic] system(s) required my full and direct attention, intervention and personal management. The aggregate critical care time was [35] minutes without overlap. Time includes spent on; [x] Data Review and interpretation [x] Patient assessment and monitoring of vital signs [x] Documentation [x] Medication orders and management Subjective Date of service: 01/01/21 Principal diagnosis: Ac hypoxemic resp failure; Severe Sepsis; Peritonitis; Acute SBO; ESRD; CHF Interval history: Patient was intubated yesterday for respiratory distress /septic shock Leukocytosis persist. Patient is on TPN s/p OR - Exploratory laparotomy, 2. Small bowel resection, 3. Partial omente ctomy, 4. Abdominal washout, 5. Removal of peritoneal dialysis catheter, 6. ABThera wound VAC placement 3 pressor shock with hyperkalemia. Objective Vital Signs - 12hr 01/01/21 01/01/21 01/01/21 07:30 08:00 08:30 Temperature 99.3 F Pulse Rate 115 H 116 H 111 H Pulse Rate [ 118 H From Monitor] Respiratory 36 H 35 H 33 H Rate Blood Pressure 123/70 114/71 109/69 O2 Sat by Pulse 95 96 96 Oximetry 01/01/21 01/01/21 01/01/21 09:00 09:06 09:30 Temperature Pulse Rate 111 H 115 H 116 H Pulse Rate [ From Monitor] Respiratory 33 H 32 H Rate Blood Pressure 123/75 123/75 123/68 O2 Sat by Pulse 96 99 96 Oximetry 01/01/21 01/01/21 01/01/21 10:01 10:50 11:01 Temperature Pulse Rate 118 H 153 H 160 H Pulse Rate [ From Monitor] Respiratory 31 H 37 H 31 H Rate Blood Pressure 98/50 105/56 105/53 O2 Sat by Pulse 95 96 Oximetry 01/01/21 01/01/21 01/01/21 11:31 11:47 12:00 Temperature Pulse Rate 140 H 124 H 122 H Pulse Rate [ 133 H From Monitor] Respiratory 27 H 35 H Rate Blood Pressure 72/40 101/35 O2 Sat by Pulse 90 98 88 Oximetry 01/01/21 01/01/21 01/01/21 12:01 12:31 13:01 Temperature Pulse Rate 133 H 129 H 142 H Pulse Rate [ From Monitor] Respiratory 32 H 37 H 31 H Rate Blood Pressure 130/40 130/40 113/66 O2 Sat by Pulse 88 95 94 Oximetry 01/01/21 01/01/21 01/01/21 16:31 16:33 16:35 Temperature 99.1 F Pulse Rate 108 H 109 H 109 H Pulse Rate [ From Monitor] Respiratory 16 20 20 Rate Blood Pressure 136/66 113/66 125/56 O2 Sat by Pulse 100 92 100 Oximetry 01/01/21 01/01/21 01/01/21 16:40 16:41 16:45 Temperature Pulse Rate 102 H 103 H 102 H Pulse Rate [ From Monitor] Respiratory 19 18 Rate Blood Pressure 84/42 69/38 O2 Sat by Pulse 100 100 Oximetry 01/01/21 01/01/21 01/01/21 16:48 16:56 17:00 Temperature 97.9 F 97.7 F Pulse Rate 120 H 106 H 107 H Pulse Rate [ 107 H From Monitor] Respiratory 20 21 Rate Blood Pressure 120/70 78/38 77/42 O2 Sat by Pulse 100 100 100 Oximetry 01/01/21 01/01/21 01/01/21 17:04 17:31 18:01 Temperature 97.7 F Pulse Rate 104 H 98 H 97 H Pulse Rate [ From Monitor] Respiratory 15 20 20 Rate Blood Pressure 77/42 112/54 118/61 O2 Sat by Pulse 95 100 100 Oximetry 01/01/21 01/01/21 01/01/21 18:24 18:31 19:01 Temperature Pulse Rate 104 H 106 H 103 H Pulse Rate [ From Monitor] Respiratory 20 21 Rate Blood Pressure 159/60 168/60 143/55 O2 Sat by Pulse 98 95 96 Oximetry Constitutional: appears uncomfortable, other (elderly male with mildly increased respiratory effort at rest ) Eyes: non-icteric ENT: oropharynx moist, oropharyngeal exudate pre (small volume, clear), other (orally intuabteted, ETT at 23 at the lip) Neck: supple, no lymphadenopathy, no JVD Effort: mildly labored Ascultation: Bilateral: diminished breath sounds, rhonchi (scant) Percussion: Bilateral: not dull Cardiovascular: regular rate and rhythm, other (S1,S2) Gastrointestinal: hypoactive bowel sounds, tender (mild), other (Distended, firm) Integumentary: other (popst surgical changes) Extremities: no cyanosis, no edema, pulses normal, no ischemia or petechiae Neurologic: pupils equal and round Psychiatric: other (unable to assess, sedated) CBC and BMP: 01/05/21 12:39 01/05/21 04:49 ABG, PT/INR, D-dimer: ABG ABG pH 7.391 (7.320-7.450) 01/01/21 03:03 POC ABG pCO2 33.3 mmHg (32.0-48.0) 01/01/21 03:03 ABG pCO2 33.9 mm Hg 12/31/20 09:38 POC ABG pO2 79.6 mmHg (83-108) L 01/01/21 03:03 ABG pO2 354.0 mm Hg (80.0-90.0) H 12/31/20 09:38 POC ABG HCO3 19.8 01/01/21 03:03 ABG O2 Saturation 95.6 (0-100) 01/01/21 03:03 PT/INR, D-dimer PT 16.9 Sec. (12.2-14.9) H 01/01/21 12:45 INR 1.39 (0.87-1.13) H 01/01/21 12:45 Abnormal lab findings: Abnormal Labs 12/22/20 12/22/20 12/22/20 14:38 14:38 14:38 WBC RBC Hgb 11.2 L Hct 35.0 L RDW 16.7 H Plt Count Lymph % (Auto) [place] % (Auto) Lymph # (Auto) Seg Neutrophils % Seg Neuts % (Manual) 94.0 H Lymphocytes % (Manual) 5.0 L Seg Neutrophils # Man Lymphocytes # (Manual) 0.3 L PT INR ABG pH POC ABG pCO2 POC ABG pO2 ABG pO2 ABG HCO3 ABG O2 Saturation ABG Base Excess ABG Hemoglobin ABG Oxyhemoglobin ABG Sodium ABG Potassium ABG Chloride ABG Glucose Oxyhemoglobin Sodium Potassium Chloride Carbon Dioxide BUN 58 H Creatinine 13.2 H Glucose 113 H POC Glucose Lactic Acid 3.60 H* Calcium Phosphorus Magnesium Total Bilirubin 1.30 H AST ALT Alkaline Phosphatase 155 H Total Protein Albumin Triglycerides Arterial Blood Glucose Arterial Blood Ionized Calcium Crossmatch 12/22/20 12/22/20 12/23/20 16:26 17:47 05:22 WBC RBC Hgb Hct RDW Plt Count Lymph % (Auto) [place] % (Auto) Lymph # (Auto) Seg Neutrophils % Seg Neuts % (Manual) Lymphocytes % (Manual) Seg Neutrophils # Man Lymphocytes # (Manual) PT INR ABG pH POC ABG pCO2 POC ABG pO2 ABG pO2 ABG HCO3 ABG O2 Saturation ABG Base Excess ABG Hemoglobin ABG Oxyhemoglobin ABG Sodium ABG Potassium ABG Chloride ABG Glucose Oxyhemoglobin Sodium Potassium Chloride Carbon Dioxide BUN Creatinine Glucose POC Glucose Lactic Acid 2.80 H* 3.10 H* 2.30 H* Calcium Phosphorus Magnesium Total Bilirubin AST ALT Alkaline Phosphatase Total Protein Albumin Triglycerides Arterial Blood Glucose Arterial Blood Ionized Calcium Crossmatch 12/23/20 12/23/20 12/23/20 05:22 05:22 06:35 WBC 12.1 H RBC Hgb 11.0 L Hct 33.7 L RDW 16.9 H Plt Count Lymph % (Auto) [place] % (Auto) Lymph # (Auto) Seg Neutrophils % Seg Neuts % (Manual) 93.0 H Lymphocytes % (Manual) 1.0 L Seg Neutrophils # Man 11.3 H Lymphocytes # (Manual) 0.1 L PT INR ABG pH POC ABG pCO2 POC ABG pO2 ABG pO2 ABG HCO3 ABG O2 Saturation ABG Base Excess ABG Hemoglobin ABG Oxyhemoglobin ABG Sodium ABG Potassium ABG Chloride ABG Glucose Oxyhemoglobin Sodium Potassium 5.7 H D Chloride Carbon Dioxide BUN 73 H Creatinine 14.2 H Glucose POC Glucose Lactic Acid 2.30 H* Calcium 7.9 L Phosphorus Magnesium Total Bilirubin 1.40 H AST 119 H ALT 130 H Alkaline Phosphatase 183 H Total Protein 6.1 L Albumin 3.6 L Triglycerides Arterial Blood Glucose Arterial Blood Ionized Calcium Crossmatch 12/23/20 12/23/20 12/23/20 11:40 13:53 16:47 WBC RBC Hgb 10.0 L Hct 30.4 L RDW Plt Count Lymph % (Auto) [place] % (Auto) Lymph # (Auto) Seg Neutrophils % Seg Neuts % (Manual) Lymphocytes % (Manual) Seg Neutrophils # Man Lymphocytes # (Manual) PT INR ABG pH POC ABG pCO2 POC ABG pO2 137.5 H ABG pO2 ABG HCO3 ABG O2 Saturation ABG Base Excess ABG Hemoglobin 9.7 L ABG Oxyhemoglobin ABG Sodium 134.1 L ABG Potassium 6.6 H ABG Chloride ABG Glucose 103 H Oxyhemoglobin Sodium Potassium Chloride Carbon Dioxide BUN Creatinine Glucose POC Glucose Lactic Acid Calcium Phosphorus Magnesium Total Bilirubin AST ALT Alkaline Phosphatase Total Protein Albumin Triglycerides Arterial Blood Glucose 103 H Arterial Blood Ionized Calcium 3.8 L Crossmatch See Detail 12/23/20 12/23/20 12/24/20 20:35 20:40 01:20 WBC RBC Hgb Hct RDW Plt Count Lymph % (Auto) [place] % (Auto) Lymph # (Auto) Seg Neutrophils % Seg Neuts % (Manual) Lymphocytes % (Manual) Seg Neutrophils # Man Lymphocytes # (Manual) PT INR ABG pH 7.252 L POC ABG pCO2 POC ABG pO2 ABG pO2 50.1 L ABG HCO3 ABG O2 Saturation 81.1 L ABG Base Excess -5.9 L ABG Hemoglobin 12.1 L ABG Oxyhemoglobin ABG Sodium ABG Potassium ABG Chloride ABG Glucose Oxyhemoglobin 78.6 L Sodium 134 L Potassium 6.9 H* D 6.3 H* Chloride Carbon Dioxide 18 L 20 L BUN 87 H 91 H Creatinine 15.3 H 15.3 H Glucose 103 H POC Glucose Lactic Acid Calcium 6.9 L 7.5 L Phosphorus Magnesium Total Bilirubin AST ALT Alkaline Phosphatase Total Protein Albumin Triglycerides Arterial Blood Glucose Arterial Blood Ionized Calcium Crossmatch 12/24/20 12/24/20 12/24/20 04:00 10:29 10:29 WBC RBC 3.49 L Hgb 10.5 L Hct 31.2 L RDW 17.5 H Plt Count 124 L Lymph % (Auto) 3.7 L [place] % (Auto) 9.8 H Lymph # (Auto) 0.2 L Seg Neutrophils % 85.9 H Seg Neuts % (Manual) Lymphocytes % (Manual) Seg Neutrophils # Man Lymphocytes # (Manual) PT INR ABG pH POC ABG pCO2 28.1 L POC ABG pO2 ABG pO2 ABG HCO3 ABG O2 Saturation ABG Base Excess ABG Hemoglobin ABG Oxyhemoglobin ABG Sodium 133.9 L ABG Potassium 5.3 H ABG Chloride 108.0 H ABG Glucose Oxyhemoglobin Sodium Potassium 5.6 H Chloride Carbon Dioxide 19 L BUN 99 H Creatinine 16.9 H Glucose 52 L POC Glucose Lactic Acid Calcium 7.6 L Phosphorus Magnesium Total Bilirubin 3.50 H AST 67 H ALT 71 H Alkaline Phosphatase Total Protein 3.5 L D Albumin 2.1 L Triglycerides Arterial Blood Glucose Arterial Blood Ionized Calcium 4.0 L Crossmatch 12/25/20 12/25/20 12/25/20 03:33 04:00 04:00 WBC 3.8 L RBC 2.90 L Hgb 8.6 L Hct 25.7 L RDW 16.7 H Plt Count 113 L Lymph % (Auto) [place] % (Auto) Lymph # (Auto) Seg Neutrophils % Seg Neuts % (Manual) Lymphocytes % (Manual) Seg Neutrophils # Man Lymphocytes # (Manual) PT INR ABG pH 7.544 H POC ABG pCO2 28.2 L POC ABG pO2 62.8 L ABG pO2 ABG HCO3 ABG O2 Saturation ABG Base Excess ABG Hemoglobin 9.3 L ABG Oxyhemoglobin 93.0 L ABG Sodium 130.3 L ABG Potassium ABG Chloride ABG Glucose 97 H Oxyhemoglobin Sodium Potassium Chloride Carbon Dioxide BUN 62 H Creatinine 11.4 H Glucose POC Glucose Lactic Acid Calcium 7.7 L Phosphorus 5.00 H Magnesium Total Bilirubin AST ALT Alkaline Phosphatase Total Protein Albumin Triglycerides Arterial Blood Glucose 97 H Arterial Blood Ionized Calcium 3.9 L Crossmatch 12/26/20 12/26/20 12/27/20 04:46 Unknown 03:40 WBC 4.1 L RBC 2.61 L Hgb 7.8 L Hct 23.4 L RDW 17.1 H Plt Count 119 L Lymph % (Auto) 5.3 L [place] % (Auto) 10.6 H Lymph # (Auto) 0.2 L Seg Neutrophils % 78.8 H Seg Neuts % (Manual) Lymphocytes % (Manual) Seg Neutrophils # Man Lymphocytes # (Manual) PT INR ABG pH 7.333 L 7.332 L POC ABG pCO2 POC ABG pO2 ABG pO2 ABG HCO3 26.9 H ABG O2 Saturation ABG Base Excess -2.4 L ABG Hemoglobin 6.8 L 7.2 L ABG Oxyhemoglobin ABG Sodium ABG Potassium ABG Chloride ABG Glucose Oxyhemoglobin 93.0 L 93.1 L Sodium Potassium Chloride Carbon Dioxide BUN Creatinine Glucose POC Glucose Lactic Acid Calcium Phosphorus Magnesium Total Bilirubin AST ALT Alkaline Phosphatase Total Protein Albumin Triglycerides Arterial Blood Glucose Arterial Blood Ionized Calcium Crossmatch 12/27/20 12/27/20 12/27/20 06:40 06:40 11:22 WBC 4.4 L RBC 2.49 L Hgb 7.4 L Hct 22.4 L RDW 17.1 H Plt Count 111 L Lymph % (Auto) 6.7 L [place] % (Auto) 12.6 H Lymph # (Auto) 0.3 L Seg Neutrophils % 77.6 H Seg Neuts % (Manual) Lymphocytes % (Manual) Seg Neutrophils # Man Lymphocytes # (Manual) PT INR ABG pH POC ABG pCO2 POC ABG pO2 ABG pO2 ABG HCO3 ABG O2 Saturation ABG Base Excess ABG Hemoglobin ABG Oxyhemoglobin ABG Sodium ABG Potassium ABG Chloride ABG Glucose Oxyhemoglobin Sodium Potassium Chloride Carbon Dioxide BUN 64 H Creatinine 9.8 H Glucose 147 H POC Glucose 134 H Lactic Acid Calcium 8.3 L Phosphorus 5.00 H Magnesium Total Bilirubin 3.70 H AST 72 H ALT Alkaline Phosphatase 142 H Total Protein 5.1 L D Albumin 2.9 L Triglycerides Arterial Blood Glucose Arterial Blood Ionized Calcium Crossmatch 12/27/20 12/27/20 12/28/20 17:29 23:31 03:09 WBC RBC Hgb Hct RDW Plt Count Lymph % (Auto) [place] % (Auto) Lymph # (Auto) Seg Neutrophils % Seg Neuts % (Manual) Lymphocytes % (Manual) Seg Neutrophils # Man Lymphocytes # (Manual) PT INR ABG pH 7.474 H POC ABG pCO2 POC ABG pO2 ABG pO2 ABG HCO3 ABG O2 Saturation ABG Base Excess ABG Hemoglobin 7.8 L ABG Oxyhemoglobin ABG Sodium ABG Potassium ABG Chloride ABG Glucose Oxyhemoglobin Sodium Potassium Chloride Carbon Dioxide BUN Creatinine Glucose POC Glucose 121 H 131 H Lactic Acid Calcium Phosphorus Magnesium Total Bilirubin AST ALT Alkaline Phosphatase Total Protein Albumin Triglycerides Arterial Blood Glucose Arterial Blood Ionized Calcium Crossmatch 12/28/20 12/28/20 12/28/20 05:37 05:40 05:40 WBC 4.3 L RBC 2.40 L Hgb 7.2 L Hct 21.5 L RDW 17.4 H Plt Count 112 L Lymph % (Auto) 6.5 L [place] % (Auto) 16.7 H Lymph # (Auto) 0.3 L Seg Neutrophils % 71.1 H Seg Neuts % (Manual) Lymphocytes % (Manual) Seg Neutrophils # Man Lymphocytes # (Manual) PT INR ABG pH POC ABG pCO2 POC ABG pO2 ABG pO2 ABG HCO3 ABG O2 Saturation ABG Base Excess ABG Hemoglobin ABG Oxyhemoglobin ABG Sodium ABG Potassium ABG Chloride ABG Glucose Oxyhemoglobin Sodium Potassium Chloride Carbon Dioxide BUN 85 H Creatinine 11.5 H Glucose 132 H POC Glucose 121 H Lactic Acid Calcium 8.2 L Phosphorus Magnesium 2.40 H Total Bilirubin 3.80 H AST 70 H ALT Alkaline Phosphatase 176 H Total Protein 5.0 L Albumin 2.9 L Triglycerides Arterial Blood Glucose Arterial Blood Ionized Calcium Crossmatch 12/28/20 12/28/20 12/28/20 11:34 15:00 17:35 WBC RBC Hgb Hct RDW Plt Count Lymph % (Auto) [place] % (Auto) Lymph # (Auto) Seg Neutrophils % Seg Neuts % (Manual) Lymphocytes % (Manual) Seg Neutrophils # Man Lymphocytes # (Manual) PT INR ABG pH 7.461 H POC ABG pCO2 POC ABG pO2 72.2 L ABG pO2 ABG HCO3 ABG O2 Saturation ABG Base Excess ABG Hemoglobin 8.2 L ABG Oxyhemoglobin 93.6 L ABG Sodium 134.1 L ABG Potassium 3.2 L ABG Chloride ABG Glucose 135 H Oxyhemoglobin Sodium Potassium Chloride Carbon Dioxide BUN Creatinine Glucose POC Glucose 137 H 144 H Lactic Acid Calcium Phosphorus Magnesium Total Bilirubin AST ALT Alkaline Phosphatase Total Protein Albumin Triglycerides Arterial Blood Glucose 135 H Arterial Blood Ionized Calcium 4.4 L Crossmatch 12/28/20 12/28/20 12/29/20 19:44 Unknown 00:21 WBC RBC Hgb Hct RDW Plt Count Lymph % (Auto) [place] % (Auto) Lymph # (Auto) Seg Neutrophils % Seg Neuts % (Manual) Lymphocytes % (Manual) Seg Neutrophils # Man Lymphocytes # (Manual) PT INR ABG pH 7.474 H POC ABG pCO2 POC ABG pO2 ABG pO2 ABG HCO3 ABG O2 Saturation ABG Base Excess ABG Hemoglobin 7.8 L ABG Oxyhemoglobin ABG Sodium 133.2 L ABG Potassium ABG Chloride ABG Glucose 139 H Oxyhemoglobin Sodium 135 L Potassium Chloride 96.6 L Carbon Dioxide BUN 47 H Creatinine 7.4 H Glucose 130 H POC Glucose 142 H Lactic Acid Calcium 8.3 L Phosphorus Magnesium Total Bilirubin AST ALT Alkaline Phosphatase Total Protein Albumin Triglycerides Arterial Blood Glucose 139 H Arterial Blood Ionized Calcium 4.3 L Crossmatch 12/29/20 12/29/20 12/29/20 05:16 05:16 05:26 WBC RBC 2.53 L Hgb 7.7 L Hct 22.8 L RDW 17.0 H Plt Count 130 L Lymph % (Auto) [place] % (Auto) Lymph # (Auto) Seg Neutrophils % Seg Neuts % (Manual) 79.0 H Lymphocytes % (Manual) 9.0 L Seg Neutrophils # Man Lymphocytes # (Manual) 0.6 L PT INR ABG pH POC ABG pCO2 POC ABG pO2 ABG pO2 ABG HCO3 ABG O2 Saturation ABG Base Excess ABG Hemoglobin ABG Oxyhemoglobin ABG Sodium ABG Potassium ABG Chloride ABG Glucose Oxyhemoglobin Sodium Potassium 3.4 L Chloride 96.6 L Carbon Dioxide BUN 59 H Creatinine 8.3 H Glucose 127 H POC Glucose 141 H Lactic Acid Calcium 8.2 L Phosphorus Magnesium Total Bilirubin 3.00 H AST 88 H ALT Alkaline Phosphatase 188 H Total Protein 5.1 L Albumin 2.8 L Triglycerides Arterial Blood Glucose Arterial Blood Ionized Calcium Crossmatch 12/29/20 12/29/20 12/29/20 11:33 17:29 23:22 WBC RBC Hgb Hct RDW Plt Count Lymph % (Auto) [place] % (Auto) Lymph # (Auto) Seg Neutrophils % Seg Neuts % (Manual) Lymphocytes % (Manual) Seg Neutrophils # Man Lymphocytes # (Manual) PT INR ABG pH POC ABG pCO2 POC ABG pO2 ABG pO2 ABG HCO3 ABG O2 Saturation ABG Base Excess ABG Hemoglobin ABG Oxyhemoglobin ABG Sodium ABG Potassium ABG Chloride ABG Glucose Oxyhemoglobin Sodium Potassium Chloride Carbon Dioxide BUN Creatinine Glucose POC Glucose 144 H 130 H 117 H Lactic Acid Calcium Phosphorus Magnesium Total Bilirubin AST ALT Alkaline Phosphatase Total Protein Albumin Triglycerides Arterial Blood Glucose Arterial Blood Ionized Calcium Crossmatch 12/30/20 12/30/20 12/30/20 05:23 08:15 09:00 WBC RBC Hgb Hct RDW Plt Count Lymph % (Auto) [place] % (Auto) Lymph # (Auto) Seg Neutrophils % Seg Neuts % (Manual) Lymphocytes % (Manual) Seg Neutrophils # Man Lymphocytes # (Manual) PT INR ABG pH POC ABG pCO2 POC ABG pO2 ABG pO2 ABG HCO3 ABG O2 Saturation ABG Base Excess ABG Hemoglobin ABG Oxyhemoglobin ABG Sodium ABG Potassium ABG Chloride ABG Glucose Oxyhemoglobin Sodium 135 L Potassium Chloride 95.9 L Carbon Dioxide BUN 85 H Creatinine 10.6 H Glucose 128 H POC Glucose 135 H 127 H Lactic Acid Calcium 8.3 L Phosphorus Magnesium Total Bilirubin 2.40 H AST 85 H ALT Alkaline Phosphatase 216 H Total Protein 5.3 L Albumin 2.6 L Triglycerides 155 H Arterial Blood Glucose Arterial Blood Ionized Calcium Crossmatch 12/30/20 12/30/20 12/30/20 09:00 11:53 15:49 WBC RBC 2.61 L Hgb 7.8 L Hct 23.7 L RDW 17.3 H Plt Count Lymph % (Auto) [place] % (Auto) Lymph # (Auto) Seg Neutrophils % Seg Neuts % (Manual) Lymphocytes % (Manual) Seg Neutrophils # Man Lymphocytes # (Manual) PT INR ABG pH POC ABG pCO2 POC ABG pO2 ABG pO2 ABG HCO3 ABG O2 Saturation ABG Base Excess ABG Hemoglobin ABG Oxyhemoglobin ABG Sodium ABG Potassium ABG Chloride ABG Glucose Oxyhemoglobin Sodium Potassium Chloride Carbon Dioxide BUN Creatinine Glucose POC Glucose 155 H 146 H Lactic Acid Calcium Phosphorus Magnesium Total Bilirubin AST ALT Alkaline Phosphatase Total Protein Albumin Triglycerides Arterial Blood Glucose Arterial Blood Ionized Calcium Crossmatch 12/30/20 12/30/20 12/31/20 17:53 23:45 03:56 WBC RBC Hgb Hct RDW Plt Count Lymph % (Auto) [place] % (Auto) Lymph # (Auto) Seg Neutrophils % Seg Neuts % (Manual) Lymphocytes % (Manual) Seg Neutrophils # Man Lymphocytes # (Manual) PT INR ABG pH POC ABG pCO2 POC ABG pO2 49.4 L ABG pO2 ABG HCO3 ABG O2 Saturation ABG Base Excess ABG Hemoglobin 10.3 L ABG Oxyhemoglobin 84.2 L ABG Sodium 133.1 L ABG Potassium ABG Chloride ABG Glucose 173 H Oxyhemoglobin Sodium Potassium Chloride Carbon Dioxide BUN Creatinine Glucose POC Glucose 139 H 173 H Lactic Acid Calcium Phosphorus Magnesium Total Bilirubin AST ALT Alkaline Phosphatase Total Protein Albumin Triglycerides Arterial Blood Glucose 173 H Arterial Blood Ionized Calcium Crossmatch 12/31/20 12/31/20 12/31/20 05:07 06:51 06:51 WBC 20.3 H RBC 3.32 L Hgb 9.8 L Hct 30.3 L D RDW 17.3 H Plt Count Lymph % (Auto) [place] % (Auto) Lymph # (Auto) Seg Neutrophils % Seg Neuts % (Manual) 87.0 H Lymphocytes % (Manual) 10.0 L Seg Neutrophils # Man 17.7 H Lymphocytes # (Manual) PT INR ABG pH POC ABG pCO2 POC ABG pO2 ABG pO2 ABG HCO3 ABG O2 Saturation ABG Base Excess ABG Hemoglobin ABG Oxyhemoglobin ABG Sodium ABG Potassium ABG Chloride ABG Glucose Oxyhemoglobin Sodium Potassium 5.2 H D Chloride Carbon Dioxide BUN 62 H Creatinine 8.4 H Glucose 116 H POC Glucose 120 H Lactic Acid Calcium Phosphorus Magnesium 1.60 L Total Bilirubin AST ALT Alkaline Phosphatase Total Protein Albumin Triglycerides Arterial Blood Glucose Arterial Blood Ionized Calcium Crossmatch 12/31/20 12/31/20 12/31/20 09:38 12:19 12:22 WBC RBC Hgb Hct RDW Plt Count Lymph % (Auto) [place] % (Auto) Lymph # (Auto) Seg Neutrophils % Seg Neuts % (Manual) Lymphocytes % (Manual) Seg Neutrophils # Man Lymphocytes # (Manual) PT INR ABG pH POC ABG pCO2 POC ABG pO2 ABG pO2 354.0 H ABG HCO3 ABG O2 Saturation 99.6 H ABG Base Excess ABG Hemoglobin 9.1 L ABG Oxyhemoglobin ABG Sodium ABG Potassium ABG Chloride ABG Glucose Oxyhemoglobin Sodium Potassium 5.2 H Chloride Carbon Dioxide BUN Creatinine Glucose POC Glucose 132 H Lactic Acid Calcium Phosphorus Magnesium Total Bilirubin AST ALT Alkaline Phosphatase Total Protein Albumin Triglycerides Arterial Blood Glucose Arterial Blood Ionized Calcium Crossmatch 12/31/20 01/01/21 01/01/21 23:23 03:03 05:04 WBC RBC Hgb Hct RDW Plt Count Lymph % (Auto) [place] % (Auto) Lymph # (Auto) Seg Neutrophils % Seg Neuts % (Manual) Lymphocytes % (Manual) Seg Neutrophils # Man Lymphocytes # (Manual) PT INR ABG pH POC ABG pCO2 POC ABG pO2 79.6 L ABG pO2 ABG HCO3 ABG O2 Saturation ABG Base Excess ABG Hemoglobin 9.2 L ABG Oxyhemoglobin ABG Sodium 131.6 L ABG Potassium 5.8 H ABG Chloride ABG Glucose 177 H Oxyhemoglobin Sodium Potassium Chloride Carbon Dioxide BUN Creatinine Glucose POC Glucose 174 H 167 H Lactic Acid Calcium Phosphorus Magnesium Total Bilirubin AST ALT Alkaline Phosphatase Total Protein Albumin Triglycerides Arterial Blood Glucose 177 H Arterial Blood Ionized Calcium Crossmatch 01/01/21 01/01/21 01/01/21 07:31 07:31 11:31 WBC 26.1 H RBC 2.95 L Hgb 8.6 L Hct 27.1 L RDW 18.2 H Plt Count Lymph % (Auto) [place] % (Auto) Lymph # (Auto) Seg Neutrophils % Seg Neuts % (Manual) 96.0 H Lymphocytes % (Manual) 4.0 L Seg Neutrophils # Man 25.1 H Lymphocytes # (Manual) 1.0 L PT INR ABG pH POC ABG pCO2 POC ABG pO2 ABG pO2 ABG HCO3 ABG O2 Saturation ABG Base Excess ABG Hemoglobin ABG Oxyhemoglobin ABG Sodium ABG Potassium ABG Chloride ABG Glucose Oxyhemoglobin Sodium Potassium 6.0 H Chloride Carbon Dioxide 21 L BUN 89 H Creatinine 10.5 H Glucose 179 H POC Glucose Lactic Acid Calcium Phosphorus Magnesium Total Bilirubin AST ALT Alkaline Phosphatase Total Protein Albumin Triglycerides Arterial Blood Glucose Arterial Blood Ionized Calcium Crossmatch See Detail 01/01/21 01/01/21 01/01/21 11:51 12:45 17:58 WBC 26.9 H RBC 3.14 L Hgb 9.3 L Hct 29.6 L RDW 17.5 H Plt Count Lymph % (Auto) [place] % (Auto) Lymph # (Auto) Seg Neutrophils % Seg Neuts % (Manual) Lymphocytes % (Manual) Seg Neutrophils # Man Lymphocytes # (Manual) PT 16.9 H INR 1.39 H ABG pH POC ABG pCO2 POC ABG pO2 ABG pO2 ABG HCO3 ABG O2 Saturation ABG Base Excess ABG Hemoglobin ABG Oxyhemoglobin ABG Sodium ABG Potassium ABG Chloride ABG Glucose Oxyhemoglobin Sodium Potassium Chloride Carbon Dioxide BUN Creatinine Glucose POC Glucose 157 H Lactic Acid Calcium Phosphorus Magnesium Total Bilirubin AST ALT Alkaline Phosphatase Total Protein Albumin Triglycerides Arterial Blood Glucose Arterial Blood Ionized Calcium Crossmatch 01/01/21 17:58 WBC RBC Hgb Hct RDW Plt Count Lymph % (Auto) [place] % (Auto) Lymph # (Auto) Seg Neutrophils % Seg Neuts % (Manual) Lymphocytes % (Manual) Seg Neutrophils # Man Lymphocytes # (Manual) PT INR ABG pH POC ABG pCO2 POC ABG pO2 ABG pO2 ABG HCO3 ABG O2 Saturation ABG Base Excess ABG Hemoglobin ABG Oxyhemoglobin ABG Sodium ABG Potassium ABG Chloride ABG Glucose Oxyhemoglobin Sodium 136 L Potassium 6.2 H* Chloride Carbon Dioxide 21 L BUN 92 H Creatinine 10.8 H Glucose 171 H POC Glucose Lactic Acid Calcium Phosphorus Magnesium Total Bilirubin 2.10 H AST 223 H ALT 100 H Alkaline Phosphatase 206 H Total Protein 4.8 L Albumin 1.9 L Triglycerides Arterial Blood Glucose Arterial Blood Ionized Calcium Crossmatch Chest x-ray: image reviewed Allied health notes reviewed: RT
[2021-01-01 19:52] LABS: RBC Morphology Normal; Total Cells Counted 100
[2021-01-01] MEDS ORDERED: TOTAL PARENTERAL NUTRITION 2,016 ML IV SCH (20:00)
[2021-01-01] MEDS: SODIUM BICARBONATE 150 MEQ in DEXTROSE 5% IN WATER 1,000 ML IV SCH (21:00)
[2021-01-02] MEDS: NORepinephrine/NS 8 MG-250 ML 8 MG/250 ML INFUS..BTL IV SCH ×2 (01:03→09:29)
[2021-01-02 01:40] LABS: Calcium 8.4 mg/dL (8.4-10.2)
[2021-01-02] MEDS: VASOPRESSIN 20 UNIT in SODIUM CHLORIDE 0.9% 100 ML IV SCH ×2 (03:28→15:01)
[2021-01-02] MEDS: HEPARIN 5,000 UNIT/1 ML VIAL SUB-Q SCH ×3 (05:32→21:36)
[2021-01-02] MEDS: PIPERACIL-TAZO 2.25 GM/50 ML 2.25 GM/50 ML BAG IV SCH ×3 (06:44→20:25)
[2021-01-02] MEDS: hydrALAZINE 20 MG/1 ML INJ IV SCH ×7 (07:34→21:36)
[2021-01-02] MEDS: METOPROLOL TARTRATE 5 MG/5 ML INJ IV SCH ×6 (07:34→21:37)
[2021-01-02 08:23] LABS: Hematocrit 22.1 % (35.5-45.6); Hemoglobin 6.7 gm/dl (11.8-15.2); Mean Corpuscular HGB Conc 30 % (32-34); Mean Corpuscular Volume 96 fl (84-94); Platelet Count 216 K/mm3 (140-440); Red Blood Count 2.31 M/mm3 (3.65-5.03); Red Cell Distribution Width 18.4 % (13.2-15.2)
[2021-01-02 09:22] LABS: Calcium 7.6 mg/dL (8.4-10.2)
[2021-01-02] MEDS: FAMOTIDINE 20 MG/2 ML INJ IV SCH ×2 (09:28→21:37)
[2021-01-02] MEDS: fentaNYL DRIP Premix 2,000 MCG/100 ML BAG IV SCH (09:28)
[2021-01-02] MEDS: DIGOXIN 0.5 MG/2 ML INJ IV SCH (09:30)
[2021-01-02] MEDS ORDERED: SODIUM CHLORIDE 0.9% 500 ML 500 ML IV NR (10:14)
--- NOTE | 2021-01-02 10:27 | Progress Note ---
Assessment and Plan - Patient Problems (1) Atrial fibrillation Current Visit: Yes Status: Acute Plan to address problem: We will continue management of perioperative paroxysmal atrial fibrillation with metoprolol, digoxin and amiodarone as needed and as hemodynamics tolerate. Subjective Date of service: 01/02/21 Principal diagnosis: Ac hypoxemic resp failure; Severe Sepsis; Peritonitis; Acute SBO; ESRD; CHF Interval history: Patient is status post emergency exploratory laparotomy for anastomotic leak, currently back in the ICU, unresponsive, on the ventilator. On the telemetry monitoring, he is in a stable sinus rhythm at 90. Blood pressure is 133 systolic on low-dose Levophed. Objective Vital Signs Temp Pulse Pulse Resp BP Pulse Ox 01/02/21 08:54 92 H 129/63 100 01/02/21 08:00 99.3 F 01/02/21 07:01 88 18 129/60 95 01/02/21 06:31 87 19 132/61 95 01/02/21 06:01 87 19 150/64 96 01/02/21 05:31 86 17 123/60 96 01/02/21 05:01 85 19 138/62 95 01/02/21 04:31 90 21 143/63 100 01/02/21 04:30 97 01/02/21 04:25 86 143/63 98 01/02/21 04:01 87 19 147/63 97 01/02/21 04:00 85 85 23 97 01/02/21 03:31 89 20 150/65 97 01/02/21 03:01 84 20 150/65 98 01/02/21 02:31 87 19 135/63 97 01/02/21 02:01 88 20 139/63 97 01/02/21 01:31 85 19 147/61 97 01/02/21 01:01 87 19 140/61 95 01/02/21 00:30 87 20 137/62 96 01/02/21 00:01 91 H 20 111/60 97 01/02/21 00:00 89 89 23 97 01/01/21 23:31 105 H 26 H 170/53 97 01/01/21 23:27 97 H 150/60 98 01/01/21 23:01 94 H 20 143/57 97 01/01/21 22:41 95 H 20 146/60 98 01/01/21 22:31 96 H 20 146/60 96 01/01/21 22:01 99 H 20 143/58 96 01/01/21 21:31 114 H 23 106/50 96 01/01/21 21:01 104 H 22 143/62 96 01/01/21 21:00 109 H 24 98 01/01/21 20:31 106 H 24 149/59 96 01/01/21 20:20 96 01/01/21 20:15 106 H 143/55 100 01/01/21 20:01 101 H 22 134/57 96 01/01/21 20:00 109 H 01/01/21 19:48 98.5 F 01/01/21 19:31 102 H 22 121/55 96 01/01/21 19:01 103 H 21 143/55 96 01/01/21 18:31 106 H 20 168/60 95 01/01/21 18:24 104 H 159/60 98 01/01/21 18:01 97 H 20 118/61 100 01/01/21 17:31 98 H 20 112/54 100 01/01/21 17:04 97.7 F 104 H 15 77/42 95 01/01/21 17:00 97.7 F 107 H 107 H 21 77/42 100 01/01/21 16:56 97.9 F 106 H 20 78/38 100 01/01/21 16:48 120 H 120/70 100 01/01/21 16:45 102 H 18 69/38 100 01/01/21 16:41 103 H 01/01/21 16:40 102 H 19 84/42 100 01/01/21 16:35 109 H 20 125/56 100 01/01/21 16:33 109 H 20 113/66 92 01/01/21 16:31 99.1 F 108 H 16 136/66 100 01/01/21 13:01 142 H 31 H 113/66 94 01/01/21 12:31 129 H 37 H 130/40 95 01/01/21 12:01 133 H 32 H 130/40 88 01/01/21 12:00 122 H 133 H 35 H 88 01/01/21 11:47 124 H 101/35 98 01/01/21 11:31 140 H 27 H 72/40 90 01/01/21 11:01 160 H 31 H 105/53 01/01/21 10:50 153 H 37 H 105/56 96 - Physical Examination General: Other (Sedated, on the vent) HEENT: Positive: PERRL Neck: Positive: neck supple Cardiac: Positive: Reg Rate and Rhythm Lungs: Positive: Decreased Breath Sounds Neuro: Positive: Weakness (Sedated, on the vent) Abdomen: Positive: Soft Skin: Positive: Clear Extremities: Absent: edema - Labs and Meds Cardiac Enzymes 01/01/21 Range/Units 17:58 AST 223 H (5-40) units/L Coagulation 01/01/21 Range/Units 12:45 PT 16.9 H (12.2-14.9) Sec. INR 1.39 H (0.87-1.13) CBC 01/01/21 01/02/21 Range/Units 17:58 08:00 WBC 26.9 H 17.5 H (4.5-11.0) K/mm3 RBC 3.14 L 2.31 L (3.65-5.03) M/mm3 Hgb 9.3 L 6.7 L (11.8-15.2) gm/dl Hct 29.6 L 22.1 L D (35.5-45.6) % Plt Count 231 216 (140-440) K/mm3 Comprehensive Metabolic Panel 01/01/21 01/02/21 01/02/21 Range/Units 17:58 00:45 08:00 Sodium 136 L 136 L 134 L (137-145) mmol/L Potassium 6.2 H* 5.8 H 5.3 H (3.6-5.0) mmol/L Chloride 99.0 96.6 L 92.9 L (98-107) mmol/L Carbon Dioxide 21 L 24 22 (22-30) mmol/L BUN 92 H 95 H 101 H (9-20) mg/dL Creatinine 10.8 H 11.2 H 10.9 H (0.8-1.3) mg/dL Glucose 171 H 238 H 560 H* (75-100) mg/dL Calcium 8.4 8.4 7.6 L (8.4-10.2) mg/dL AST 223 H (5-40) units/L ALT 100 H (7-56) units/L Alkaline Phosphatase 206 H (35-129) units/L Total Protein 4.8 L (6.3-8.2) g/dL Albumin 1.9 L (3.9-5) g/dL - Allied health notes Allied health notes reviewed: RT
[2021-01-02] MEDS: SODIUM BICARBONATE 150 MEQ in DEXTROSE 5% IN WATER 1,000 ML IV SCH (10:57)
--- NOTE | 2021-01-02 11:09 | Electrocardiograph Report ---
[facility] Test Date: 2020-12-28 Test Time: 15:57:10 Pat Name: ELISE PIMENTEL Department: Room: A263 1 Gender: M Sap Director: RESP. : 1960 Requested By: NICKIE GUERRA Order Number: [id number] Reading MD: Matthew Garner Measurements Intervals [place] Rate: 147 P: OK: QRS: 63 QRSD: 93 T: -82 QT: 275 QTc: 435 Interpretive Statements Atrial fibrillation No previous ECG available for comparison Electronically Signed On 01-02-2021 11:09:27 EDT by Matthew Garner
--- NOTE | 2021-01-02 13:01 | Progress Note ---
Assessment and Plan POD#10 s/p ex lap with extensive lysis of adhesions and two small bowel resections with primary anastamosis for SBO with necrotic segement small bowel. POD#1 s/p ex lap, resection of perforated anastamosis, washout and abthera wound vac placement. Septic from bowel leak but showing some signs of clinical improvement. Wean pressors as tolerated. Pt getting a unit of blood on dialysis today. If continues to be stable will tentatively take patient back to OR tomorrow for possible re-ansatamosis and abdominal wall closure. keep NGT to suction. Pt in deep sedation due to open abdomen. Spoke with daughter Cristopher to update her on patient's condition and intended plan of care. Subjective Date of service: 01/02/21 Narrative: No acute events overnight. Pt was able to come down a little on pressor support. Improvement of vital signs. He was on dialysis upon evaluation. Objective Vital Signs - 12hr 01/02/21 01/02/21 01/02/21 01:01 01:31 02:01 Temperature Pulse Rate 87 85 88 Pulse Rate [ From Monitor] Respiratory 19 19 20 Rate Blood Pressure 140/61 147/61 139/63 O2 Sat by Pulse 95 97 97 Oximetry O2 Sat by Pulse Oximetry [ Anterior Bilateral Throughout] 01/02/21 01/02/21 01/02/21 02:31 03:01 03:31 Temperature Pulse Rate 87 84 89 Pulse Rate [ From Monitor] Respiratory 19 20 20 Rate Blood Pressure 135/63 150/65 150/65 O2 Sat by Pulse 97 98 97 Oximetry O2 Sat by Pulse Oximetry [ Anterior Bilateral Throughout] 01/02/21 01/02/21 01/02/21 04:00 04:01 04:25 Temperature Pulse Rate 85 87 86 Pulse Rate [ 85 From Monitor] Respiratory 23 19 Rate Blood Pressure 147/63 143/63 O2 Sat by Pulse 97 97 98 Oximetry O2 Sat by Pulse Oximetry [ Anterior Bilateral Throughout] 01/02/21 01/02/21 01/02/21 04:30 04:31 05:01 Temperature Pulse Rate 90 85 Pulse Rate [ From Monitor] Respiratory 21 19 Rate Blood Pressure 143/63 138/62 O2 Sat by Pulse 97 100 95 Oximetry O2 Sat by Pulse Oximetry [ Anterior Bilateral Throughout] 01/02/21 01/02/21 01/02/21 05:31 06:01 06:31 Temperature Pulse Rate 86 87 87 Pulse Rate [ From Monitor] Respiratory 17 19 19 Rate Blood Pressure 123/60 150/64 132/61 O2 Sat by Pulse 96 96 95 Oximetry O2 Sat by Pulse Oximetry [ Anterior Bilateral Throughout] 01/02/21 01/02/21 01/02/21 07:01 07:31 08:00 Temperature 99.3 F Pulse Rate 88 88 91 H Pulse Rate [ 91 H From Monitor] Respiratory 18 20 22 Rate Blood Pressure 129/60 135/60 138/62 O2 Sat by Pulse 95 97 98 Oximetry O2 Sat by Pulse Oximetry [ Anterior Bilateral Throughout] 01/02/21 01/02/21 01/02/21 08:31 08:54 09:01 Temperature Pulse Rate 90 92 H 93 H Pulse Rate [ From Monitor] Respiratory 22 21 Rate Blood Pressure 139/65 129/63 125/59 O2 Sat by Pulse 96 100 96 Oximetry O2 Sat by Pulse Oximetry [ Anterior Bilateral Throughout] 01/02/21 01/02/21 01/02/21 09:31 10:01 10:09 Temperature 98.6 F Pulse Rate 91 H 90 91 H Pulse Rate [ From Monitor] Respiratory 18 17 17 Rate Blood Pressure 133/66 132/62 137/61 O2 Sat by Pulse 96 97 Oximetry O2 Sat by Pulse 97 Oximetry [ Anterior Bilateral Throughout] 01/02/21 01/02/21 01/02/21 10:15 10:30 10:31 Temperature Pulse Rate 91 H 95 H 95 H Pulse Rate [ From Monitor] Respiratory 17 Rate Blood Pressure 124/63 124/64 124/64 O2 Sat by Pulse 96 Oximetry O2 Sat by Pulse Oximetry [ Anterior Bilateral Throughout] 01/02/21 01/02/21 01/02/21 10:45 11:00 11:01 Temperature Pulse Rate 99 H 93 H 95 H Pulse Rate [ From Monitor] Respiratory 18 Rate Blood Pressure 113/58 109/67 109/67 O2 Sat by Pulse 95 Oximetry O2 Sat by Pulse Oximetry [ Anterior Bilateral Throughout] 01/02/21 01/02/21 01/02/21 11:15 11:30 11:31 Temperature Pulse Rate 97 H 90 92 H Pulse Rate [ From Monitor] Respiratory 16 Rate Blood Pressure 117/60 139/70 139/70 O2 Sat by Pulse 97 Oximetry O2 Sat by Pulse Oximetry [ Anterior Bilateral Throughout] 01/02/21 01/02/21 01/02/21 11:45 12:00 12:15 Temperature 98.6 F Pulse Rate 90 91 H 91 H Pulse Rate [ From Monitor] Respiratory Rate Blood Pressure 138/67 118/64 127/60 O2 Sat by Pulse Oximetry O2 Sat by Pulse Oximetry [ Anterior Bilateral Throughout] 01/02/21 01/02/21 01/02/21 12:16 12:30 12:45 Temperature Pulse Rate 95 H 92 H Pulse Rate [ From Monitor] Respiratory Rate Blood Pressure 127/60 106/62 126/64 O2 Sat by Pulse 98 Oximetry O2 Sat by Pulse Oximetry [ Anterior Bilateral Throughout] - General physical appearance no distress, no pain - Respiratory normal expansion, normal respiratory effort, other (intubated on vent) - Abdomen soft, distended, other (wound vac with sero-sanguinous drainage, NGT bilious) - Labs 01/02/21 08:00 01/02/21 08:00 Diabetes panel 01/01/21 01/02/21 01/02/21 Range/Units 17:58 00:45 08:00 Sodium 136 L 136 L 134 L (137-145) mmol/L Potassium 6.2 H* 5.8 H 5.3 H (3.6-5.0) mmol/L Chloride 99.0 96.6 L 92.9 L (98-107) mmol/L Carbon Dioxide 21 L 24 22 (22-30) mmol/L BUN 92 H 95 H 101 H (9-20) mg/dL Creatinine 10.8 H 11.2 H 10.9 H (0.8-1.3) mg/dL Glucose 171 H 238 H 560 H* (75-100) mg/dL Calcium 8.4 8.4 7.6 L (8.4-10.2) mg/dL AST 223 H (5-40) units/L ALT 100 H (7-56) units/L Alkaline Phosphatase 206 H (35-129) units/L Total Protein 4.8 L (6.3-8.2) g/dL Albumin 1.9 L (3.9-5) g/dL Calcium panel 01/01/21 01/02/21 01/02/21 Range/Units 17:58 00:45 08:00 Calcium 8.4 8.4 7.6 L (8.4-10.2) mg/dL Phosphorus 6.50 H (2.5-4.5) mg/dL Albumin 1.9 L (3.9-5) g/dL Pituitary panel 01/01/21 01/02/21 01/02/21 Range/Units 17:58 00:45 08:00 Sodium 136 L 136 L 134 L (137-145) mmol/L Potassium 6.2 H* 5.8 H 5.3 H (3.6-5.0) mmol/L Chloride 99.0 96.6 L 92.9 L (98-107) mmol/L Carbon Dioxide 21 L 24 22 (22-30) mmol/L BUN 92 H 95 H 101 H (9-20) mg/dL Creatinine 10.8 H 11.2 H 10.9 H (0.8-1.3) mg/dL Glucose 171 H 238 H 560 H* (75-100) mg/dL Calcium 8.4 8.4 7.6 L (8.4-10.2) mg/dL Adrenal panel 01/01/21 01/02/21 01/02/21 Range/Units 17:58 00:45 08:00 Sodium 136 L 136 L 134 L (137-145) mmol/L Potassium 6.2 H* 5.8 H 5.3 H (3.6-5.0) mmol/L Chloride 99.0 96.6 L 92.9 L (98-107) mmol/L Carbon Dioxide 21 L 24 22 (22-30) mmol/L BUN 92 H 95 H 101 H (9-20) mg/dL Creatinine 10.8 H 11.2 H 10.9 H (0.8-1.3) mg/dL Glucose 171 H 238 H 560 H* (75-100) mg/dL Calcium 8.4 8.4 7.6 L (8.4-10.2) mg/dL Total Bilirubin 2.10 H (0.1-1.2) mg/dL AST 223 H (5-40) units/L ALT 100 H (7-56) units/L Alkaline Phosphatase 206 H (35-129) units/L Total Protein 4.8 L (6.3-8.2) g/dL Albumin 1.9 L (3.9-5) g/dL
[2021-01-02] MEDS: FLUCONAZOLE 200 MG 200 MG/100 ML BAG IV SCH (13:43)
--- NOTE | 2021-01-02 13:48 | Progress Note ---
Assessment and Plan Acute hypoxemic respiratory failure, on mechanical ventilatory support. Severe Sepsis Peritonitis Acute small-bowel obstruction with tissue necrosis. End-stage renal disease, on dialysis. Hypertension. Crohn's disease. Gastroesophageal reflux disease. Heart failure with reduced ejection fraction. Hyperkalemia. Anemia that is normocytic. Lactic acidosis. Oropharyngeal dysphagia - s/p 1 unit PRBC for serum Hb of 6.7 - repeat CXR in am - reduced set rate to 18/min - get lactate level to guide clinical decision making - continue total parenteral nutrition - wean vasopressors for target MAP > 65 mmHg - continue wound care per RN/WCN - continue care as below otherwise; - continue Daily SAT and SBT assessment as tolerated - continue to wean supplemental oxygen for target O2 sat's > 92% acutely - VAP bundle addressed - continue lung protective strategies - continue bronchodilators with pulmonary hygiene per RT - wean per pulmonary driven protocols otherwise - HD/UF per nephrology prescription for toxin and volume control - avoid nephrotoxins, renally dose all medications - continue accuchecks with glycemic control per SSI (While critically ill target blood glucose of 140-180 mg/dL; avoid hypoglycemia) - sedation prn for target RASS 0 to -1 - continue to avoid benzodiazepine's, reduce the possibility of delirium - complete AB's per ID rec's - prn analgesia per CPOT score - Maintenance of sleep-wake cycle, avoid delirium - enteral nutritional support at goal rate as tolerated (once cleared by surgeon) - G.I. & VTE prophylaxis - PT/OT/ROM exercises - continue mobility protocols for pressure ulcer prophylaxis - Monitor hemodynamics closely - continue other care per attending / other consultants - discharge planning ongoing concurrently .... Re-evaluate in am & prn CONDITION: CRITICAL PROGNOSIS: GUARDED CODE STATUS: FULL CODE The high probability of a clinically significant, sudden or life-threatening deterioration of the [respiratory, cardiovascular, GI & neurologic] system(s) required my full and direct attention, intervention and personal management. The aggregate critical care time was [33] minutes without overlap. Time includes spent on; [x] Data Review and interpretation [x] Patient assessment and monitoring of vital signs [x] Documentation [x] Medication orders and management Subjective Date of service: 01/02/21 Principal diagnosis: Ac hypoxemic resp failure; Severe Sepsis; Peritonitis; Acute SBO; ESRD; CHF Interval history: Patient is seen today for: Ac hypoxemic resp failure; Severe Sepsis; Peritonitis; Acute SBO; ESRD on Dialysis; HTN; Crohn's disease; HFrEF Seen and examined at bedside; 24hour events reviewed; nursing and respiratory care staff consulted; no adverse overnight events reported to me; resting in bed; decompensated over the weekend and back on MVS; also s/p ex-lap with repair of leak; on vasopressor support (Levo & Vasopressin); sedated with fentanyl gtt. Objective Vital Signs - 12hr 01/02/21 01/02/21 01/02/21 02:01 02:31 03:01 Temperature Pulse Rate 88 87 84 Pulse Rate [ From Monitor] Respiratory 20 19 20 Rate Blood Pressure 139/63 135/63 150/65 O2 Sat by Pulse 97 97 98 Oximetry O2 Sat by Pulse Oximetry [ Anterior Bilateral Throughout] 01/02/21 01/02/21 01/02/21 03:31 04:00 04:01 Temperature Pulse Rate 89 85 87 Pulse Rate [ 85 From Monitor] Respiratory 20 23 19 Rate Blood Pressure 150/65 147/63 O2 Sat by Pulse 97 97 97 Oximetry O2 Sat by Pulse Oximetry [ Anterior Bilateral Throughout] 01/02/21 01/02/21 01/02/21 04:25 04:30 04:31 Temperature Pulse Rate 86 90 Pulse Rate [ From Monitor] Respiratory 21 Rate Blood Pressure 143/63 143/63 O2 Sat by Pulse 98 97 100 Oximetry O2 Sat by Pulse Oximetry [ Anterior Bilateral Throughout] 01/02/21 01/02/21 01/02/21 05:01 05:31 06:01 Temperature Pulse Rate 85 86 87 Pulse Rate [ From Monitor] Respiratory 19 17 19 Rate Blood Pressure 138/62 123/60 150/64 O2 Sat by Pulse 95 96 96 Oximetry O2 Sat by Pulse Oximetry [ Anterior Bilateral Throughout] 01/02/21 01/02/21 01/02/21 06:31 07:01 07:31 Temperature Pulse Rate 87 88 88 Pulse Rate [ From Monitor] Respiratory 19 18 20 Rate Blood Pressure 132/61 129/60 135/60 O2 Sat by Pulse 95 95 97 Oximetry O2 Sat by Pulse Oximetry [ Anterior Bilateral Throughout] 01/02/21 01/02/21 01/02/21 08:00 08:31 08:54 Temperature 99.3 F Pulse Rate 91 H 90 92 H Pulse Rate [ 91 H From Monitor] Respiratory 22 22 Rate Blood Pressure 138/62 139/65 129/63 O2 Sat by Pulse 98 96 100 Oximetry O2 Sat by Pulse Oximetry [ Anterior Bilateral Throughout] 01/02/21 01/02/21 01/02/21 09:01 09:31 10:01 Temperature Pulse Rate 93 H 91 H 90 Pulse Rate [ From Monitor] Respiratory 21 18 17 Rate Blood Pressure 125/59 133/66 132/62 O2 Sat by Pulse 96 96 97 Oximetry O2 Sat by Pulse Oximetry [ Anterior Bilateral Throughout] 01/02/21 01/02/21 01/02/21 10:09 10:15 10:30 Temperature 98.6 F Pulse Rate 91 H 91 H 95 H Pulse Rate [ From Monitor] Respiratory 17 Rate Blood Pressure 137/61 124/63 124/64 O2 Sat by Pulse Oximetry O2 Sat by Pulse 97 Oximetry [ Anterior Bilateral Throughout] 01/02/21 01/02/21 01/02/21 10:31 10:45 11:00 Temperature Pulse Rate 95 H 99 H 93 H Pulse Rate [ From Monitor] Respiratory 17 Rate Blood Pressure 124/64 113/58 109/67 O2 Sat by Pulse 96 Oximetry O2 Sat by Pulse Oximetry [ Anterior Bilateral Throughout] 01/02/21 01/02/21 01/02/21 11:01 11:15 11:30 Temperature Pulse Rate 95 H 97 H 90 Pulse Rate [ From Monitor] Respiratory 18 Rate Blood Pressure 109/67 117/60 139/70 O2 Sat by Pulse 95 Oximetry O2 Sat by Pulse Oximetry [ Anterior Bilateral Throughout] 01/02/21 01/02/21 01/02/21 11:31 11:45 12:00 Temperature 98.6 F Pulse Rate 92 H 90 92 H Pulse Rate [ 93 H From Monitor] Respiratory 16 18 Rate Blood Pressure 139/70 138/67 118/64 O2 Sat by Pulse 97 97 Oximetry O2 Sat by Pulse Oximetry [ Anterior Bilateral Throughout] 01/02/21 01/02/21 01/02/21 12:01 12:15 12:16 Temperature Pulse Rate 93 H 91 H 95 H Pulse Rate [ From Monitor] Respiratory 17 Rate Blood Pressure 118/64 127/60 127/60 O2 Sat by Pulse 97 98 Oximetry O2 Sat by Pulse Oximetry [ Anterior Bilateral Throughout] 01/02/21 01/02/21 01/02/21 12:30 12:31 12:45 Temperature Pulse Rate 92 H 93 H 91 H Pulse Rate [ From Monitor] Respiratory 17 Rate Blood Pressure 106/62 106/62 126/64 O2 Sat by Pulse 97 Oximetry O2 Sat by Pulse Oximetry [ Anterior Bilateral Throughout] 01/02/21 01/02/21 01/02/21 13:00 13:01 13:17 Temperature Pulse Rate 91 H 91 H 89 Pulse Rate [ From Monitor] Respiratory 21 Rate Blood Pressure 111/62 111/62 143/59 O2 Sat by Pulse 96 Oximetry O2 Sat by Pulse Oximetry [ Anterior Bilateral Throughout] 01/02/21 13:30 Temperature 98.8 F Pulse Rate 92 H Pulse Rate [ From Monitor] Respiratory 18 Rate Blood Pressure 107/61 O2 Sat by Pulse Oximetry O2 Sat by Pulse 96 Oximetry [ Anterior Bilateral Throughout] Constitutional: no acute distress, other (elderly male riding set rate on MVS) Eyes: non-icteric ENT: oropharynx moist, oropharyngeal exudate pre (small volume, clear), other (ETT 24 cm LEEANN) Neck: supple, no lymphadenopathy, no JVD Effort: mildly labored Ascultation: Bilateral: diminished breath sounds, rhonchi Percussion: Bilateral: not dull Cardiovascular: irregular rhythm Gastrointestinal: hypoactive bowel sounds, soft, non-tender, non-distended (protuberant), other (Midline abdominal incision with wound-vac in place) Integumentary: other (Midline abdominal incision with wound-vac in place) Extremities: no cyanosis, no edema, pulses normal, no ischemia or petechiae Neurologic: non-focal exam (grossly), pupils equal and round, CN II-XII normal, motor strength normal and (sedated) Psychiatric: other (unable to assess re: AMS) CBC and BMP: 01/02/21 08:00 01/02/21 15:00 ABG, PT/INR, D-dimer: ABG ABG pH 7.329 (7.320-7.450) 01/02/21 03:05 POC ABG pCO2 43.5 mmHg (32.0-48.0) 01/02/21 03:05 ABG pCO2 33.9 mm Hg 12/31/20 09:38 POC ABG pO2 81.8 mmHg (83-108) L 01/02/21 03:05 ABG pO2 354.0 mm Hg (80.0-90.0) H 12/31/20 09:38 POC ABG HCO3 22.4 01/02/21 03:05 ABG O2 Saturation 95.7 (0-100) 01/02/21 03:05 PT/INR, D-dimer PT 16.9 Sec. (12.2-14.9) H 01/01/21 12:45 INR 1.39 (0.87-1.13) H 01/01/21 12:45 Abnormal lab findings: Abnormal Labs 12/22/20 12/22/20 12/22/20 14:38 14:38 14:38 WBC RBC Hgb 11.2 L Hct 35.0 L MCV MCHC RDW 16.7 H Plt Count Lymph % (Auto) Shannon % (Auto) Lymph # (Auto) Seg Neutrophils % Seg Neuts % (Manual) 94.0 H Lymphocytes % (Manual) 5.0 L Monocytes % (Manual) Seg Neutrophils # Man Lymphocytes # (Manual) 0.3 L Monocytes # (Manual) PT INR ABG pH POC ABG pCO2 POC ABG pO2 ABG pO2 ABG HCO3 ABG O2 Saturation ABG Base Excess ABG Hemoglobin ABG Oxyhemoglobin ABG Sodium ABG Potassium ABG Chloride ABG Glucose Oxyhemoglobin Sodium Potassium Chloride Carbon Dioxide BUN 58 H Creatinine 13.2 H Glucose 113 H POC Glucose Lactic Acid 3.60 H* Calcium Phosphorus Magnesium Total Bilirubin 1.30 H AST ALT Alkaline Phosphatase 155 H Total Protein Albumin Triglycerides Arterial Blood Glucose Arterial Blood Ionized Calcium Crossmatch 12/22/20 12/22/20 12/23/20 16:26 17:47 05:22 WBC RBC Hgb Hct MCV MCHC RDW Plt Count Lymph % (Auto) Shannon % (Auto) Lymph # (Auto) Seg Neutrophils % Seg Neuts % (Manual) Lymphocytes % (Manual) Monocytes % (Manual) Seg Neutrophils # Man Lymphocytes # (Manual) Monocytes # (Manual) PT INR ABG pH POC ABG pCO2 POC ABG pO2 ABG pO2 ABG HCO3 ABG O2 Saturation ABG Base Excess ABG Hemoglobin ABG Oxyhemoglobin ABG Sodium ABG Potassium ABG Chloride ABG Glucose Oxyhemoglobin Sodium Potassium Chloride Carbon Dioxide BUN Creatinine Glucose POC Glucose Lactic Acid 2.80 H* 3.10 H* 2.30 H* Calcium Phosphorus Magnesium Total Bilirubin AST ALT Alkaline Phosphatase Total Protein Albumin Triglycerides Arterial Blood Glucose Arterial Blood Ionized Calcium Crossmatch 12/23/20 12/23/20 12/23/20 05:22 05:22 06:35 WBC 12.1 H RBC Hgb 11.0 L Hct 33.7 L MCV MCHC RDW 16.9 H Plt Count Lymph % (Auto) Shannon % (Auto) Lymph # (Auto) Seg Neutrophils % Seg Neuts % (Manual) 93.0 H Lymphocytes % (Manual) 1.0 L Monocytes % (Manual) Seg Neutrophils # Man 11.3 H Lymphocytes # (Manual) 0.1 L Monocytes # (Manual) PT INR ABG pH POC ABG pCO2 POC ABG pO2 ABG pO2 ABG HCO3 ABG O2 Saturation ABG Base Excess ABG Hemoglobin ABG Oxyhemoglobin ABG Sodium ABG Potassium ABG Chloride ABG Glucose Oxyhemoglobin Sodium Potassium 5.7 H D Chloride Carbon Dioxide BUN 73 H Creatinine 14.2 H Glucose POC Glucose Lactic Acid 2.30 H* Calcium 7.9 L Phosphorus Magnesium Total Bilirubin 1.40 H AST 119 H ALT 130 H Alkaline Phosphatase 183 H Total Protein 6.1 L Albumin 3.6 L Triglycerides Arterial Blood Glucose Arterial Blood Ionized Calcium Crossmatch 12/23/20 12/23/20 12/23/20 11:40 13:53 16:47 WBC RBC Hgb 10.0 L Hct 30.4 L MCV MCHC RDW Plt Count Lymph % (Auto) Shannon % (Auto) Lymph # (Auto) Seg Neutrophils % Seg Neuts % (Manual) Lymphocytes % (Manual) Monocytes % (Manual) Seg Neutrophils # Man Lymphocytes # (Manual) Monocytes # (Manual) PT INR ABG pH POC ABG pCO2 POC ABG pO2 137.5 H ABG pO2 ABG HCO3 ABG O2 Saturation ABG Base Excess ABG Hemoglobin 9.7 L ABG Oxyhemoglobin ABG Sodium 134.1 L ABG Potassium 6.6 H ABG Chloride ABG Glucose 103 H Oxyhemoglobin Sodium Potassium Chloride Carbon Dioxide BUN Creatinine Glucose POC Glucose Lactic Acid Calcium Phosphorus Magnesium Total Bilirubin AST ALT Alkaline Phosphatase Total Protein Albumin Triglycerides Arterial Blood Glucose 103 H Arterial Blood Ionized Calcium 3.8 L Crossmatch See Detail 12/23/20 12/23/20 12/24/20 20:35 20:40 01:20 WBC RBC Hgb Hct MCV MCHC RDW Plt Count Lymph % (Auto) Shannon % (Auto) Lymph # (Auto) Seg Neutrophils % Seg Neuts % (Manual) Lymphocytes % (Manual) Monocytes % (Manual) Seg Neutrophils # Man Lymphocytes # (Manual) Monocytes # (Manual) PT INR ABG pH 7.252 L POC ABG pCO2 POC ABG pO2 ABG pO2 50.1 L ABG HCO3 ABG O2 Saturation 81.1 L ABG Base Excess -5.9 L ABG Hemoglobin 12.1 L ABG Oxyhemoglobin ABG Sodium ABG Potassium ABG Chloride ABG Glucose Oxyhemoglobin 78.6 L Sodium 134 L Potassium 6.9 H* D 6.3 H* Chloride Carbon Dioxide 18 L 20 L BUN 87 H 91 H Creatinine 15.3 H 15.3 H Glucose 103 H POC Glucose Lactic Acid Calcium 6.9 L 7.5 L Phosphorus Magnesium Total Bilirubin AST ALT Alkaline Phosphatase Total Protein Albumin Triglycerides Arterial Blood Glucose Arterial Blood Ionized Calcium Crossmatch 12/24/20 12/24/20 12/24/20 04:00 10:29 10:29 WBC RBC 3.49 L Hgb 10.5 L Hct 31.2 L MCV MCHC RDW 17.5 H Plt Count 124 L Lymph % (Auto) 3.7 L Shannon % (Auto) 9.8 H Lymph # (Auto) 0.2 L Seg Neutrophils % 85.9 H Seg Neuts % (Manual) Lymphocytes % (Manual) Monocytes % (Manual) Seg Neutrophils # Man Lymphocytes # (Manual) Monocytes # (Manual) PT INR ABG pH POC ABG pCO2 28.1 L POC ABG pO2 ABG pO2 ABG HCO3 ABG O2 Saturation ABG Base Excess ABG Hemoglobin ABG Oxyhemoglobin ABG Sodium 133.9 L ABG Potassium 5.3 H ABG Chloride 108.0 H ABG Glucose Oxyhemoglobin Sodium Potassium 5.6 H Chloride Carbon Dioxide 19 L BUN 99 H Creatinine 16.9 H Glucose 52 L POC Glucose Lactic Acid Calcium 7.6 L Phosphorus Magnesium Total Bilirubin 3.50 H AST 67 H ALT 71 H Alkaline Phosphatase Total Protein 3.5 L D Albumin 2.1 L Triglycerides Arterial Blood Glucose Arterial Blood Ionized Calcium 4.0 L Crossmatch 12/25/20 12/25/20 12/25/20 03:33 04:00 04:00 WBC 3.8 L RBC 2.90 L Hgb 8.6 L Hct 25.7 L MCV MCHC RDW 16.7 H Plt Count 113 L Lymph % (Auto) Shannon % (Auto) Lymph # (Auto) Seg Neutrophils % Seg Neuts % (Manual) Lymphocytes % (Manual) Monocytes % (Manual) Seg Neutrophils # Man Lymphocytes # (Manual) Monocytes # (Manual) PT INR ABG pH 7.544 H POC ABG pCO2 28.2 L POC ABG pO2 62.8 L ABG pO2 ABG HCO3 ABG O2 Saturation ABG Base Excess ABG Hemoglobin 9.3 L ABG Oxyhemoglobin 93.0 L ABG Sodium 130.3 L ABG Potassium ABG Chloride ABG Glucose 97 H Oxyhemoglobin Sodium Potassium Chloride Carbon Dioxide BUN 62 H Creatinine 11.4 H Glucose POC Glucose Lactic Acid Calcium 7.7 L Phosphorus 5.00 H Magnesium Total Bilirubin AST ALT Alkaline Phosphatase Total Protein Albumin Triglycerides Arterial Blood Glucose 97 H Arterial Blood Ionized Calcium 3.9 L Crossmatch 12/26/20 12/26/20 12/27/20 04:46 Unknown 03:40 WBC 4.1 L RBC 2.61 L Hgb 7.8 L Hct 23.4 L MCV MCHC RDW 17.1 H Plt Count 119 L Lymph % (Auto) 5.3 L Shannon % (Auto) 10.6 H Lymph # (Auto) 0.2 L Seg Neutrophils % 78.8 H Seg Neuts % (Manual) Lymphocytes % (Manual) Monocytes % (Manual) Seg Neutrophils # Man Lymphocytes # (Manual) Monocytes # (Manual) PT INR ABG pH 7.333 L 7.332 L POC ABG pCO2 POC ABG pO2 ABG pO2 ABG HCO3 26.9 H ABG O2 Saturation ABG Base Excess -2.4 L ABG Hemoglobin 6.8 L 7.2 L ABG Oxyhemoglobin ABG Sodium ABG Potassium ABG Chloride ABG Glucose Oxyhemoglobin 93.0 L 93.1 L Sodium Potassium Chloride Carbon Dioxide BUN Creatinine Glucose POC Glucose Lactic Acid Calcium Phosphorus Magnesium Total Bilirubin AST ALT Alkaline Phosphatase Total Protein Albumin Triglycerides Arterial Blood Glucose Arterial Blood Ionized Calcium Crossmatch 12/27/20 12/27/20 12/27/20 06:40 06:40 11:22 WBC 4.4 L RBC 2.49 L Hgb 7.4 L Hct 22.4 L MCV MCHC RDW 17.1 H Plt Count 111 L Lymph % (Auto) 6.7 L Shannon % (Auto) 12.6 H Lymph # (Auto) 0.3 L Seg Neutrophils % 77.6 H Seg Neuts % (Manual) Lymphocytes % (Manual) Monocytes % (Manual) Seg Neutrophils # Man Lymphocytes # (Manual) Monocytes # (Manual) PT INR ABG pH POC ABG pCO2 POC ABG pO2 ABG pO2 ABG HCO3 ABG O2 Saturation ABG Base Excess ABG Hemoglobin ABG Oxyhemoglobin ABG Sodium ABG Potassium ABG Chloride ABG Glucose Oxyhemoglobin Sodium Potassium Chloride Carbon Dioxide BUN 64 H Creatinine 9.8 H Glucose 147 H POC Glucose 134 H Lactic Acid Calcium 8.3 L Phosphorus 5.00 H Magnesium Total Bilirubin 3.70 H AST 72 H ALT Alkaline Phosphatase 142 H Total Protein 5.1 L D Albumin 2.9 L Triglycerides Arterial Blood Glucose Arterial Blood Ionized Calcium Crossmatch 12/27/20 12/27/20 12/28/20 17:29 23:31 03:09 WBC RBC Hgb Hct MCV MCHC RDW Plt Count Lymph % (Auto) Shannon % (Auto) Lymph # (Auto) Seg Neutrophils % Seg Neuts % (Manual) Lymphocytes % (Manual) Monocytes % (Manual) Seg Neutrophils # Man Lymphocytes # (Manual) Monocytes # (Manual) PT INR ABG pH 7.474 H POC ABG pCO2 POC ABG pO2 ABG pO2 ABG HCO3 ABG O2 Saturation ABG Base Excess ABG Hemoglobin 7.8 L ABG Oxyhemoglobin ABG Sodium ABG Potassium ABG Chloride ABG Glucose Oxyhemoglobin Sodium Potassium Chloride Carbon Dioxide BUN Creatinine Glucose POC Glucose 121 H 131 H Lactic Acid Calcium Phosphorus Magnesium Total Bilirubin AST ALT Alkaline Phosphatase Total Protein Albumin Triglycerides Arterial Blood Glucose Arterial Blood Ionized Calcium Crossmatch 12/28/20 12/28/20 12/28/20 05:37 05:40 05:40 WBC 4.3 L RBC 2.40 L Hgb 7.2 L Hct 21.5 L MCV MCHC RDW 17.4 H Plt Count 112 L Lymph % (Auto) 6.5 L Shannon % (Auto) 16.7 H Lymph # (Auto) 0.3 L Seg Neutrophils % 71.1 H Seg Neuts % (Manual) Lymphocytes % (Manual) Monocytes % (Manual) Seg Neutrophils # Man Lymphocytes # (Manual) Monocytes # (Manual) PT INR ABG pH POC ABG pCO2 POC ABG pO2 ABG pO2 ABG HCO3 ABG O2 Saturation ABG Base Excess ABG Hemoglobin ABG Oxyhemoglobin ABG Sodium ABG Potassium ABG Chloride ABG Glucose Oxyhemoglobin Sodium Potassium Chloride Carbon Dioxide BUN 85 H Creatinine 11.5 H Glucose 132 H POC Glucose 121 H Lactic Acid Calcium 8.2 L Phosphorus Magnesium 2.40 H Total Bilirubin 3.80 H AST 70 H ALT Alkaline Phosphatase 176 H Total Protein 5.0 L Albumin 2.9 L Triglycerides Arterial Blood Glucose Arterial Blood Ionized Calcium Crossmatch 12/28/20 12/28/20 12/28/20 11:34 15:00 17:35 WBC RBC Hgb Hct MCV MCHC RDW Plt Count Lymph % (Auto) Shannon % (Auto) Lymph # (Auto) Seg Neutrophils % Seg Neuts % (Manual) Lymphocytes % (Manual) Monocytes % (Manual) Seg Neutrophils # Man Lymphocytes # (Manual) Monocytes # (Manual) PT INR ABG pH 7.461 H POC ABG pCO2 POC ABG pO2 72.2 L ABG pO2 ABG HCO3 ABG O2 Saturation ABG Base Excess ABG Hemoglobin 8.2 L ABG Oxyhemoglobin 93.6 L ABG Sodium 134.1 L ABG Potassium 3.2 L ABG Chloride ABG Glucose 135 H Oxyhemoglobin Sodium Potassium Chloride Carbon Dioxide BUN Creatinine Glucose POC Glucose 137 H 144 H Lactic Acid Calcium Phosphorus Magnesium Total Bilirubin AST ALT Alkaline Phosphatase Total Protein Albumin Triglycerides Arterial Blood Glucose 135 H Arterial Blood Ionized Calcium 4.4 L Crossmatch 12/28/20 12/28/20 12/29/20 19:44 Unknown 00:21 WBC RBC Hgb Hct MCV MCHC RDW Plt Count Lymph % (Auto) Shannon % (Auto) Lymph # (Auto) Seg Neutrophils % Seg Neuts % (Manual) Lymphocytes % (Manual) Monocytes % (Manual) Seg Neutrophils # Man Lymphocytes # (Manual) Monocytes # (Manual) PT INR ABG pH 7.474 H POC ABG pCO2 POC ABG pO2 ABG pO2 ABG HCO3 ABG O2 Saturation ABG Base Excess ABG Hemoglobin 7.8 L ABG Oxyhemoglobin ABG Sodium 133.2 L ABG Potassium ABG Chloride ABG Glucose 139 H Oxyhemoglobin Sodium 135 L Potassium Chloride 96.6 L Carbon Dioxide BUN 47 H Creatinine 7.4 H Glucose 130 H POC Glucose 142 H Lactic Acid Calcium 8.3 L Phosphorus Magnesium Total Bilirubin AST ALT Alkaline Phosphatase Total Protein Albumin Triglycerides Arterial Blood Glucose 139 H Arterial Blood Ionized Calcium 4.3 L Crossmatch 0512/29/20 12/29/20 05:16 05:16 05:26 WBC RBC 2.53 L Hgb 7.7 L Hct 22.8 L MCV MCHC RDW 17.0 H Plt Count 130 L Lymph % (Auto) Shannon % (Auto) Lymph # (Auto) Seg Neutrophils % Seg Neuts % (Manual) 79.0 H Lymphocytes % (Manual) 9.0 L Monocytes % (Manual) Seg Neutrophils # Man Lymphocytes # (Manual) 0.6 L Monocytes # (Manual) PT INR ABG pH POC ABG pCO2 POC ABG pO2 ABG pO2 ABG HCO3 ABG O2 Saturation ABG Base Excess ABG Hemoglobin ABG Oxyhemoglobin ABG Sodium ABG Potassium ABG Chloride ABG Glucose Oxyhemoglobin Sodium Potassium 3.4 L Chloride 96.6 L Carbon Dioxide BUN 59 H Creatinine 8.3 H Glucose 127 H POC Glucose 141 H Lactic Acid Calcium 8.2 L Phosphorus Magnesium Total Bilirubin 3.00 H AST 88 H ALT Alkaline Phosphatase 188 H Total Protein 5.1 L Albumin 2.8 L Triglycerides Arterial Blood Glucose Arterial Blood Ionized Calcium Crossmatch 12/29/20 12/29/20 12/29/20 11:33 17:29 23:22 WBC RBC Hgb Hct MCV MCHC RDW Plt Count Lymph % (Auto) Shannon % (Auto) Lymph # (Auto) Seg Neutrophils % Seg Neuts % (Manual) Lymphocytes % (Manual) Monocytes % (Manual) Seg Neutrophils # Man Lymphocytes # (Manual) Monocytes # (Manual) PT INR ABG pH POC ABG pCO2 POC ABG pO2 ABG pO2 ABG HCO3 ABG O2 Saturation ABG Base Excess ABG Hemoglobin ABG Oxyhemoglobin ABG Sodium ABG Potassium ABG Chloride ABG Glucose Oxyhemoglobin Sodium Potassium Chloride Carbon Dioxide BUN Creatinine Glucose POC Glucose 144 H 130 H 117 H Lactic Acid Calcium Phosphorus Magnesium Total Bilirubin AST ALT Alkaline Phosphatase Total Protein Albumin Triglycerides Arterial Blood Glucose Arterial Blood Ionized Calcium Crossmatch 12/30/20 12/30/20 12/30/20 05:23 08:15 09:00 WBC RBC Hgb Hct MCV MCHC RDW Plt Count Lymph % (Auto) Shannon % (Auto) Lymph # (Auto) Seg Neutrophils % Seg Neuts % (Manual) Lymphocytes % (Manual) Monocytes % (Manual) Seg Neutrophils # Man Lymphocytes # (Manual) Monocytes # (Manual) PT INR ABG pH POC ABG pCO2 POC ABG pO2 ABG pO2 ABG HCO3 ABG O2 Saturation ABG Base Excess ABG Hemoglobin ABG Oxyhemoglobin ABG Sodium ABG Potassium ABG Chloride ABG Glucose Oxyhemoglobin Sodium 135 L Potassium Chloride 95.9 L Carbon Dioxide BUN 85 H Creatinine 10.6 H Glucose 128 H POC Glucose 135 H 127 H Lactic Acid Calcium 8.3 L Phosphorus Magnesium Total Bilirubin 2.40 H AST 85 H ALT Alkaline Phosphatase 216 H Total Protein 5.3 L Albumin 2.6 L Triglycerides 155 H Arterial Blood Glucose Arterial Blood Ionized Calcium Crossmatch 12/30/20 12/30/20 12/30/20 09:00 11:53 15:49 WBC RBC 2.61 L Hgb 7.8 L Hct 23.7 L MCV MCHC RDW 17.3 H Plt Count Lymph % (Auto) Shannon % (Auto) Lymph # (Auto) Seg Neutrophils % Seg Neuts % (Manual) Lymphocytes % (Manual) Monocytes % (Manual) Seg Neutrophils # Man Lymphocytes # (Manual) Monocytes # (Manual) PT INR ABG pH POC ABG pCO2 POC ABG pO2 ABG pO2 ABG HCO3 ABG O2 Saturation ABG Base Excess ABG Hemoglobin ABG Oxyhemoglobin ABG Sodium ABG Potassium ABG Chloride ABG Glucose Oxyhemoglobin Sodium Potassium Chloride Carbon Dioxide BUN Creatinine Glucose POC Glucose 155 H 146 H Lactic Acid Calcium Phosphorus Magnesium Total Bilirubin AST ALT Alkaline Phosphatase Total Protein Albumin Triglycerides Arterial Blood Glucose Arterial Blood Ionized Calcium Crossmatch 12/30/20 12/30/20 12/31/20 17:53 23:45 03:56 WBC RBC Hgb Hct MCV MCHC RDW Plt Count Lymph % (Auto) [place] % (Auto) Lymph # (Auto) Seg Neutrophils % Seg Neuts % (Manual) Lymphocytes % (Manual) Monocytes % (Manual) Seg Neutrophils # Man Lymphocytes # (Manual) Monocytes # (Manual) PT INR ABG pH POC ABG pCO2 POC ABG pO2 49.4 L ABG pO2 ABG HCO3 ABG O2 Saturation ABG Base Excess ABG Hemoglobin 10.3 L ABG Oxyhemoglobin 84.2 L ABG Sodium 133.1 L ABG Potassium ABG Chloride ABG Glucose 173 H Oxyhemoglobin Sodium Potassium Chloride Carbon Dioxide BUN Creatinine Glucose POC Glucose 139 H 173 H Lactic Acid Calcium Phosphorus Magnesium Total Bilirubin AST ALT Alkaline Phosphatase Total Protein Albumin Triglycerides Arterial Blood Glucose 173 H Arterial Blood Ionized Calcium Crossmatch 12/31/20 12/31/20 12/31/20 05:07 06:51 06:51 WBC 20.3 H RBC 3.32 L Hgb 9.8 L Hct 30.3 L D MCV MCHC RDW 17.3 H Plt Count Lymph % (Auto) Shannon % (Auto) Lymph # (Auto) Seg Neutrophils % Seg Neuts % (Manual) 87.0 H Lymphocytes % (Manual) 10.0 L Monocytes % (Manual) Seg Neutrophils # Man 17.7 H Lymphocytes # (Manual) Monocytes # (Manual) PT INR ABG pH POC ABG pCO2 POC ABG pO2 ABG pO2 ABG HCO3 ABG O2 Saturation ABG Base Excess ABG Hemoglobin ABG Oxyhemoglobin ABG Sodium ABG Potassium ABG Chloride ABG Glucose Oxyhemoglobin Sodium Potassium 5.2 H D Chloride Carbon Dioxide BUN 62 H Creatinine 8.4 H Glucose 116 H POC Glucose 120 H Lactic Acid Calcium Phosphorus Magnesium 1.60 L Total Bilirubin AST ALT Alkaline Phosphatase Total Protein Albumin Triglycerides Arterial Blood Glucose Arterial Blood Ionized Calcium Crossmatch 12/31/20 12/31/20 12/31/20 09:38 12:19 12:22 WBC RBC Hgb Hct MCV MCHC RDW Plt Count Lymph % (Auto) [place] % (Auto) Lymph # (Auto) Seg Neutrophils % Seg Neuts % (Manual) Lymphocytes % (Manual) Monocytes % (Manual) Seg Neutrophils # Man Lymphocytes # (Manual) Monocytes # (Manual) PT INR ABG pH POC ABG pCO2 POC ABG pO2 ABG pO2 354.0 H ABG HCO3 ABG O2 Saturation 99.6 H ABG Base Excess ABG Hemoglobin 9.1 L ABG Oxyhemoglobin ABG Sodium ABG Potassium ABG Chloride ABG Glucose Oxyhemoglobin Sodium Potassium 5.2 H Chloride Carbon Dioxide BUN Creatinine Glucose POC Glucose 132 H Lactic Acid Calcium Phosphorus Magnesium Total Bilirubin AST ALT Alkaline Phosphatase Total Protein Albumin Triglycerides Arterial Blood Glucose Arterial Blood Ionized Calcium Crossmatch 12/31/20 01/01/21 01/01/21 23:23 03:03 05:04 WBC RBC Hgb Hct MCV MCHC RDW Plt Count Lymph % (Auto) Shannon % (Auto) Lymph # (Auto) Seg Neutrophils % Seg Neuts % (Manual) Lymphocytes % (Manual) Monocytes % (Manual) Seg Neutrophils # Man Lymphocytes # (Manual) Monocytes # (Manual) PT INR ABG pH POC ABG pCO2 POC ABG pO2 79.6 L ABG pO2 ABG HCO3 ABG O2 Saturation ABG Base Excess ABG Hemoglobin 9.2 L ABG Oxyhemoglobin ABG Sodium 131.6 L ABG Potassium 5.8 H ABG Chloride ABG Glucose 177 H Oxyhemoglobin Sodium Potassium Chloride Carbon Dioxide BUN Creatinine Glucose POC Glucose 174 H 167 H Lactic Acid Calcium Phosphorus Magnesium Total Bilirubin AST ALT Alkaline Phosphatase Total Protein Albumin Triglycerides Arterial Blood Glucose 177 H Arterial Blood Ionized Calcium Crossmatch 01/01/21 01/01/21 01/01/21 07:31 07:31 11:31 WBC 26.1 H RBC 2.95 L Hgb 8.6 L Hct 27.1 L MCV MCHC RDW 18.2 H Plt Count Lymph % (Auto) Shannon % (Auto) Lymph # (Auto) Seg Neutrophils % Seg Neuts % (Manual) 96.0 H Lymphocytes % (Manual) 4.0 L Monocytes % (Manual) Seg Neutrophils # Man 25.1 H Lymphocytes # (Manual) 1.0 L Monocytes # (Manual) PT INR ABG pH POC ABG pCO2 POC ABG pO2 ABG pO2 ABG HCO3 ABG O2 Saturation ABG Base Excess ABG Hemoglobin ABG Oxyhemoglobin ABG Sodium ABG Potassium ABG Chloride ABG Glucose Oxyhemoglobin Sodium Potassium 6.0 H Chloride Carbon Dioxide 21 L BUN 89 H Creatinine 10.5 H Glucose 179 H POC Glucose Lactic Acid Calcium Phosphorus Magnesium Total Bilirubin AST ALT Alkaline Phosphatase Total Protein Albumin Triglycerides Arterial Blood Glucose Arterial Blood Ionized Calcium Crossmatch See Detail 01/01/21 01/01/21 01/01/21 11:51 12:45 16:52 WBC RBC Hgb Hct MCV MCHC RDW Plt Count Lymph % (Auto) Shannon % (Auto) Lymph # (Auto) Seg Neutrophils % Seg Neuts % (Manual) Lymphocytes % (Manual) Monocytes % (Manual) Seg Neutrophils # Man Lymphocytes # (Manual) Monocytes # (Manual) PT 16.9 H INR 1.39 H ABG pH POC ABG pCO2 POC ABG pO2 ABG pO2 ABG HCO3 ABG O2 Saturation ABG Base Excess ABG Hemoglobin ABG Oxyhemoglobin ABG Sodium ABG Potassium ABG Chloride ABG Glucose Oxyhemoglobin Sodium Potassium Chloride Carbon Dioxide BUN Creatinine Glucose POC Glucose 157 H 177 H Lactic Acid Calcium Phosphorus Magnesium Total Bilirubin AST ALT Alkaline Phosphatase Total Protein Albumin Triglycerides Arterial Blood Glucose Arterial Blood Ionized Calcium Crossmatch 01/01/21 01/01/21 01/01/21 17:58 17:58 20:12 WBC 26.9 H RBC 3.14 L Hgb 9.3 L Hct 29.6 L MCV MCHC RDW 17.5 H Plt Count Lymph % (Auto) Shannon % (Auto) Lymph # (Auto) Seg Neutrophils % Seg Neuts % (Manual) 84.0 H Lymphocytes % (Manual) 4.0 L Monocytes % (Manual) 12.0 H Seg Neutrophils # Man 22.6 H Lymphocytes # (Manual) 1.1 L Monocytes # (Manual) 3.2 H PT INR ABG pH POC ABG pCO2 POC ABG pO2 ABG pO2 ABG HCO3 ABG O2 Saturation ABG Base Excess ABG Hemoglobin ABG Oxyhemoglobin ABG Sodium ABG Potassium ABG Chloride ABG Glucose Oxyhemoglobin Sodium 136 L Potassium 6.2 H* Chloride Carbon Dioxide 21 L BUN 92 H Creatinine 10.8 H Glucose 171 H POC Glucose 288 H Lactic Acid Calcium Phosphorus Magnesium Total Bilirubin 2.10 H AST 223 H ALT 100 H Alkaline Phosphatase 206 H Total Protein 4.8 L Albumin 1.9 L Triglycerides Arterial Blood Glucose Arterial Blood Ionized Calcium Crossmatch 01/02/21 01/02/21 01/02/21 00:12 00:45 03:05 WBC RBC Hgb Hct MCV MCHC RDW Plt Count Lymph % (Auto) Shannon % (Auto) Lymph # (Auto) Seg Neutrophils % Seg Neuts % (Manual) Lymphocytes % (Manual) Monocytes % (Manual) Seg Neutrophils # Man Lymphocytes # (Manual) Monocytes # (Manual) PT INR ABG pH POC ABG pCO2 POC ABG pO2 81.8 L ABG pO2 ABG HCO3 ABG O2 Saturation ABG Base Excess ABG Hemoglobin 8.0 L ABG Oxyhemoglobin ABG Sodium 129.8 L ABG Potassium 5.4 H ABG Chloride ABG Glucose 257 H Oxyhemoglobin Sodium 136 L Potassium 5.8 H Chloride 96.6 L Carbon Dioxide BUN 95 H Creatinine 11.2 H Glucose 238 H POC Glucose 223 H Lactic Acid Calcium Phosphorus Magnesium Total Bilirubin AST ALT Alkaline Phosphatase Total Protein Albumin Triglycerides Arterial Blood Glucose 257 H Arterial Blood Ionized Calcium 4.0 L Crossmatch 01/02/21 01/02/21 01/02/21 06:25 08:00 08:00 WBC 17.5 H RBC 2.31 L Hgb 6.7 L Hct 22.1 L D MCV 96 H MCHC 30 L RDW 18.4 H Plt Count Lymph % (Auto) Shannon % (Auto) Lymph # (Auto) Seg Neutrophils % Seg Neuts % (Manual) Lymphocytes % (Manual) Monocytes % (Manual) Seg Neutrophils # Man Lymphocytes # (Manual) Monocytes # (Manual) PT INR ABG pH POC ABG pCO2 POC ABG pO2 ABG pO2 ABG HCO3 ABG O2 Saturation ABG Base Excess ABG Hemoglobin ABG Oxyhemoglobin ABG Sodium ABG Potassium ABG Chloride ABG Glucose Oxyhemoglobin Sodium 134 L Potassium 5.3 H Chloride 92.9 L Carbon Dioxide BUN 101 H Creatinine 10.9 H Glucose 560 H* POC Glucose 239 H Lactic Acid Calcium 7.6 L Phosphorus 6.50 H Magnesium Total Bilirubin AST ALT Alkaline Phosphatase Total Protein Albumin Triglycerides Arterial Blood Glucose Arterial Blood Ionized Calcium Crossmatch 01/02/21 11:26 WBC RBC Hgb Hct MCV MCHC RDW Plt Count Lymph % (Auto) Shannon % (Auto) Lymph # (Auto) Seg Neutrophils % Seg Neuts % (Manual) Lymphocytes % (Manual) Monocytes % (Manual) Seg Neutrophils # Man Lymphocytes # (Manual) Monocytes # (Manual) PT INR ABG pH POC ABG pCO2 POC ABG pO2 ABG pO2 ABG HCO3 ABG O2 Saturation ABG Base Excess ABG Hemoglobin ABG Oxyhemoglobin ABG Sodium ABG Potassium ABG Chloride ABG Glucose Oxyhemoglobin Sodium Potassium Chloride Carbon Dioxide BUN Creatinine Glucose POC Glucose 205 H Lactic Acid Calcium Phosphorus Magnesium Total Bilirubin AST ALT Alkaline Phosphatase Total Protein Albumin Triglycerides Arterial Blood Glucose Arterial Blood Ionized Calcium Crossmatch Chest x-ray: image reviewed Allied health notes reviewed: nursing
--- NOTE | 2021-01-02 13:50 | Progress Note ---
Assessment and Plan Cultures: 12/22/2020 blood culture: Streptococcus bovis, Prevotella 12/22/2020 PD fluid culture: No growth 12/24/2020 tracheal aspirate culture: No growth 12/24/2020 blood culture: No growth A/P: 60-year-old male with ESRD on PD, Crohn's disease, CHF, gastroesophageal reflux disease was admitted to the hospital with complaints of abdominal pain and fever: #Severe sepsis with shock: Remains on pressors (on Levophed and vasopressin), leukocytosis improving. Secondary to small bowel obstruction/necrotic bowel with associated peritonitis. Status post exploratory laparotomy on 12/23/2020 with extensive lysis, primary anastomosis, found to have necrotic segment of small bowel. #Small bowel obstruction/necrotic bowel: with concern for PD associated peritonitis: Nephrology and general surgery following. Status post exploratory laparotomy on 12/23/2020 with extensive lysis, primary anastomosis, found to have necrotic segment of small bowel. PD catheter remains in place. S/p ex lap, resection of perforated anastamosis, washout and abthera wound vac placement on 01/01. Repeat CT abdomen shows no new abscesses, noted small free fluid. #Streptococcus bovis bacteremia and Prevotella bacteremia: secondary to above. TTE without obvious vegetations. Repeat blood cultures negative. #ESRD: Renally dose antibiotics. Used to be on PD, cath remains in place. Now on HD. #Elevated LFTs: Secondary to sepsis. #Acute respiratory failure: extubated, then re-intubated 12/31/2020. #Anemia: Severe. Recs: -Monitor H&H -Continue IV Zosyn, renally dosed -Continue fluconazole for now -tentative end date for bacteremia treatment: 01/06/2021, however, may need to extend depending on clinical course -On TPN Guarded prognosis will follow Millicent Weber MD [facility] ([facility]) Office [phone] Subjective Date of service: 01/02/21 Principal diagnosis: Ac hypoxemic resp failure; Severe Sepsis; Peritonitis; Acute SBO; ESRD; CHF Interval history: Patient remains intubated, sedated, no fever, on Levophed and vasopressin. Objective - Exam Narrative Exam: General appearance: Sedated, intubated Eyes: anicteric sclerae, moist conjunctivae; no lid-lag; PERRLA HENT: Normocephalic, Atraumatic; normal external ears, nares open, oropharynx limited with endotracheal tube, tongue out with edema Neck: supple, tracheal midline, no JVD Lungs: Coarse breath sounds bilaterally CV: Tachycardic Abdomen: Soft Midline surgical wound with Abthera Wound VAC Extremities: no edema, no cyanosis Skin: No rash. Psych: Sedated Neuro: Sedated - Constitutional Vitals: Vital Signs Temp Pulse Resp BP Pulse Ox 98.8 F 92 H 18 107/61 96 01/02/21 13:30 01/02/21 13:30 01/02/21 13:30 01/02/21 13:30 01/02/21 13:30 Temperature -Last 24 Hours Temperature 98.8 F Temperature 98.6 F Temperature 98.6 F Temperature 99.3 F Temperature 98.5 F Temperature 99 F Temperature 99.1 F Temperature 97.7 F Temperature 97.7 F Temperature 97.9 F Temperature 99.1 F - Labs CBC & Chem 7: 01/02/21 08:00 01/02/21 08:00 Labs: Abnormal lab results 01/01/21 01/01/21 01/01/21 Range/Units 11:31 11:51 16:52 WBC (4.5-11.0) K/mm3 RBC (3.65-5.03) M/mm3 Hgb (11.8-15.2) gm/dl Hct (35.5-45.6) % MCV (84-94) fl MCHC (32-34) % RDW (13.2-15.2) % Seg Neuts % (Manual) (40.0-70.0) % Lymphocytes % (Manual) (13.4-35.0) % Monocytes % (Manual) (0.0-7.3) % Seg Neutrophils # Man (1.8-7.7) K/mm3 Lymphocytes # (Manual) (1.2-5.4) K/mm3 Monocytes # (Manual) (0.0-0.8) K/mm3 POC ABG pO2 (83-108) mmHg ABG Hemoglobin (12.0-17.5) ABG Sodium (136.0-145.0) mmol/L ABG Potassium (3.40-4.50) mmol/L ABG Glucose (65-95) mg/dL Sodium (137-145) mmol/L Potassium (3.6-5.0) mmol/L Chloride (98-107) mmol/L Carbon Dioxide (22-30) mmol/L BUN (9-20) mg/dL Creatinine (0.8-1.3) mg/dL Glucose (75-100) mg/dL POC Glucose 157 H 177 H (70-105) mg/dL Calcium (8.4-10.2) mg/dL Phosphorus (2.5-4.5) mg/dL Total Bilirubin (0.1-1.2) mg/dL AST (5-40) units/L ALT (7-56) units/L Alkaline Phosphatase (35-129) units/L Total Protein (6.3-8.2) g/dL Albumin (3.9-5) g/dL Arterial Blood Glucose (65-95) mg/dL Arterial Blood Ionized Calcium (4.6-5.3) mg/dL Crossmatch See Detail 01/01/21 01/01/21 01/01/21 Range/Units 17:58 17:58 20:12 WBC 26.9 H (4.5-11.0) K/mm3 RBC 3.14 L (3.65-5.03) M/mm3 Hgb 9.3 L (11.8-15.2) gm/dl Hct 29.6 L (35.5-45.6) % MCV (84-94) fl MCHC (32-34) % RDW 17.5 H (13.2-15.2) % Seg Neuts % (Manual) 84.0 H (40.0-70.0) % Lymphocytes % (Manual) 4.0 L (13.4-35.0) % Monocytes % (Manual) 12.0 H (0.0-7.3) % Seg Neutrophils # Man 22.6 H (1.8-7.7) K/mm3 Lymphocytes # (Manual) 1.1 L (1.2-5.4) K/mm3 Monocytes # (Manual) 3.2 H (0.0-0.8) K/mm3 POC ABG pO2 (83-108) mmHg ABG Hemoglobin (12.0-17.5) ABG Sodium (136.0-145.0) mmol/L ABG Potassium (3.40-4.50) mmol/L ABG Glucose (65-95) mg/dL Sodium 136 L (137-145) mmol/L Potassium 6.2 H* (3.6-5.0) mmol/L Chloride (98-107) mmol/L Carbon Dioxide 21 L (22-30) mmol/L BUN 92 H (9-20) mg/dL Creatinine 10.8 H (0.8-1.3) mg/dL Glucose 171 H (75-100) mg/dL POC Glucose 288 H (70-105) mg/dL Calcium (8.4-10.2) mg/dL Phosphorus (2.5-4.5) mg/dL Total Bilirubin 2.10 H (0.1-1.2) mg/dL AST 223 H (5-40) units/L ALT 100 H (7-56) units/L Alkaline Phosphatase 206 H (35-129) units/L Total Protein 4.8 L (6.3-8.2) g/dL Albumin 1.9 L (3.9-5) g/dL Arterial Blood Glucose (65-95) mg/dL Arterial Blood Ionized Calcium (4.6-5.3) mg/dL Crossmatch 01/02/21 01/02/21 01/02/21 Range/Units 00:12 00:45 03:05 WBC (4.5-11.0) K/mm3 RBC (3.65-5.03) M/mm3 Hgb (11.8-15.2) gm/dl Hct (35.5-45.6) % MCV (84-94) fl MCHC (32-34) % RDW (13.2-15.2) % Seg Neuts % (Manual) (40.0-70.0) % Lymphocytes % (Manual) (13.4-35.0) % Monocytes % (Manual) (0.0-7.3) % Seg Neutrophils # Man (1.8-7.7) K/mm3 Lymphocytes # (Manual) (1.2-5.4) K/mm3 Monocytes # (Manual) (0.0-0.8) K/mm3 POC ABG pO2 81.8 L (83-108) mmHg ABG Hemoglobin 8.0 L (12.0-17.5) ABG Sodium 129.8 L (136.0-145.0) mmol/L ABG Potassium 5.4 H (3.40-4.50) mmol/L ABG Glucose 257 H (65-95) mg/dL Sodium 136 L (137-145) mmol/L Potassium 5.8 H (3.6-5.0) mmol/L Chloride 96.6 L (98-107) mmol/L Carbon Dioxide (22-30) mmol/L BUN 95 H (9-20) mg/dL Creatinine 11.2 H (0.8-1.3) mg/dL Glucose 238 H (75-100) mg/dL POC Glucose 223 H (70-105) mg/dL Calcium (8.4-10.2) mg/dL Phosphorus (2.5-4.5) mg/dL Total Bilirubin (0.1-1.2) mg/dL AST (5-40) units/L ALT (7-56) units/L Alkaline Phosphatase (35-129) units/L Total Protein (6.3-8.2) g/dL Albumin (3.9-5) g/dL Arterial Blood Glucose 257 H (65-95) mg/dL Arterial Blood Ionized Calcium 4.0 L (4.6-5.3) mg/dL Crossmatch 01/02/21 01/02/21 01/02/21 Range/Units 06:25 08:00 08:00 WBC 17.5 H (4.5-11.0) K/mm3 RBC 2.31 L (3.65-5.03) M/mm3 Hgb 6.7 L (11.8-15.2) gm/dl Hct 22.1 L D (35.5-45.6) % MCV 96 H (84-94) fl MCHC 30 L (32-34) % RDW 18.4 H (13.2-15.2) % Seg Neuts % (Manual) (40.0-70.0) % Lymphocytes % (Manual) (13.4-35.0) % Monocytes % (Manual) (0.0-7.3) % Seg Neutrophils # Man (1.8-7.7) K/mm3 Lymphocytes # (Manual) (1.2-5.4) K/mm3 Monocytes # (Manual) (0.0-0.8) K/mm3 POC ABG pO2 (83-108) mmHg ABG Hemoglobin (12.0-17.5) ABG Sodium (136.0-145.0) mmol/L ABG Potassium (3.40-4.50) mmol/L ABG Glucose (65-95) mg/dL Sodium 134 L (137-145) mmol/L Potassium 5.3 H (3.6-5.0) mmol/L Chloride 92.9 L (98-107) mmol/L Carbon Dioxide (22-30) mmol/L BUN 101 H (9-20) mg/dL Creatinine 10.9 H (0.8-1.3) mg/dL Glucose 560 H* (75-100) mg/dL POC Glucose 239 H (70-105) mg/dL Calcium 7.6 L (8.4-10.2) mg/dL Phosphorus 6.50 H (2.5-4.5) mg/dL Total Bilirubin (0.1-1.2) mg/dL AST (5-40) units/L ALT (7-56) units/L Alkaline Phosphatase (35-129) units/L Total Protein (6.3-8.2) g/dL Albumin (3.9-5) g/dL Arterial Blood Glucose (65-95) mg/dL Arterial Blood Ionized Calcium (4.6-5.3) mg/dL Crossmatch 01/02/21 Range/Units 11:26 WBC (4.5-11.0) K/mm3 RBC (3.65-5.03) M/mm3 Hgb (11.8-15.2) gm/dl Hct (35.5-45.6) % MCV (84-94) fl MCHC (32-34) % RDW (13.2-15.2) % Seg Neuts % (Manual) (40.0-70.0) % Lymphocytes % (Manual) (13.4-35.0) % Monocytes % (Manual) (0.0-7.3) % Seg Neutrophils # Man (1.8-7.7) K/mm3 Lymphocytes # (Manual) (1.2-5.4) K/mm3 Monocytes # (Manual) (0.0-0.8) K/mm3 POC ABG pO2 (83-108) mmHg ABG Hemoglobin (12.0-17.5) ABG Sodium (136.0-145.0) mmol/L ABG Potassium (3.40-4.50) mmol/L ABG Glucose (65-95) mg/dL Sodium (137-145) mmol/L Potassium (3.6-5.0) mmol/L Chloride (98-107) mmol/L Carbon Dioxide (22-30) mmol/L BUN (9-20) mg/dL Creatinine (0.8-1.3) mg/dL Glucose (75-100) mg/dL POC Glucose 205 H (70-105) mg/dL Calcium (8.4-10.2) mg/dL Phosphorus (2.5-4.5) mg/dL Total Bilirubin (0.1-1.2) mg/dL AST (5-40) units/L ALT (7-56) units/L Alkaline Phosphatase (35-129) units/L Total Protein (6.3-8.2) g/dL Albumin (3.9-5) g/dL Arterial Blood Glucose (65-95) mg/dL Arterial Blood Ionized Calcium (4.6-5.3) mg/dL Crossmatch
--- NOTE | 2021-01-02 14:14 | Progress Note ---
Assessment and Plan Assessment and plan: This is a 60 YO Male with ESRD on PD, GERD, Crohn's Disease, Nicotine Dependence, HTN, Systolic CHF(EF 35%) who presented to the emergency department on 12/22 with complaints of abdominal pain which began shortly after eating fast food rated 10/10 which is periumbilical, constant, associated with fever, nausea and multiple sites of vomiting and self-reported inability to undergo PD. In the emergency room patient underwent a CT scan of the abdomen/pelvis which revealed evidence of partial small bowel obstruction, symptoms were consistent with bacterial peritonitis. Patient was admitted to the hospital service with sepsis, peritonitis, and small bowel obstruction with consults to general surgery, nephrology, infectious disease and [facility]. 12/23. Patient had temperature 101.2 F, tachycardia and elevated lactic acid on admission. Meet sepsis criteria. Started on IV antibiotics. ID has been co nsulted. Surgery consulted this a.m.-advised laparoscopy. He remains on NG tube connected to suction. 12/24. Patient was noted to have peritonitis yesterday and patient undergoing exploratory laparotomy. Patient remained intubated after procedure and is in ICU. Now on broad-spectrum antibiotics. ID on board. 12/25. Remains mechanically ventilated and sedated. Temp 103 Fahrenheit. Antibiotics broadened-ID added fluconazole and Flagyl. Blood cultures ordered. Plan to repeat CT abdomen tomorrow if not better. Surgery following. 12/26: Patient remains on mechanical ventilation on CMV tidal line 550, rate of 14, PEEP of 8 and 30% FiO2 and sedated on fentanyl 4 micrograms. Today we will remove his Jeffery and CCM dropped his rate controlled him on CPAP. We will trend CBC given recent drop in H/H. 12/27: Patient remains intubated on CMV tidal volume 550, rate 12, PEEP 8 on 30% FiO2 at the time my examination. Patient's TPN will be changed to PPN. Patient's fentanyl drip will be changed to IV push fentanyl and have a permacath placed today and midline. Patient was placed on a spontaneous breathing trial was switched back to CMV prior to procedure. 12/28: Patient on fentanyl but awake and follows commands. At the time of my examination he was on a CPAP trial and is scheduled to receive HD today. s/o permacath and PICC placement with vascular yesterday. His blood culture grew P revotella and addition to Streptococcus bovis. This evening Dr. Spicer attempted to extubate the patient and his heart rate went to the 180s. Stat EKG obtained and cardiology consulted. 12/29: Patient was started on amiodarone IV for A. fib RVR yesterday and today he is more rate controlled into the 70s and 80s. Patient was extubated yesterday and is currently on Ventimask. Patient will be transferred to [facility]. Patient continues to be n.p.o. with TPN and NG tube to [facility]. He is hypokalemic today which was repleted. 12/30; patient was on IV amiodarone for treatment with RVR, rate is controlled. Patient was off oxygen. patient is n.p.o. and on TPN. Surgery is following the patient. 12/31: Patient was intubated overnight for respiratory distress and this morning on examination he was on assist control tidal volume 450, rate 20, PEEP 6, 100% FiO2 and RT was getting a ABG to adjust vent settings. Patient had a acute bump in WBC and per ID recommendations we will obtain a CT abdomen/pelvis if leukocytosis persist. Patient is on TPN and sedated with Levophed. Patient is also on vasopressor support with Levophed. Per surgery his ileus is resolving however will maintain OGT to LIWS. 01/01: Patient was started on a vasopressin yesterday late evening. This morning patient is on 20 mcg of Levophed and 0.03 vasopressin and sedated on 20 mcg of propofol. Patient WBC increased today and he is hypokalemic. We will treat hyperkalemia. Patient had a CT chest and abdomen/pelvis pending. The time examination total of 450, rate 20, PEEP of 6 and 35 percent FiO2. Per RN, Dr Pollock has stated that the patient will be returning to the OR today for likely anastomosis seen on CT abdomen/pelvis. 01/02: Patient noted, WBC improving, but noted to have anemia, will transfuse additional unit of Blood and repeat H/H. continue supportive care. Sepsis Streptococcus bovis bacteremia/Prevotella bacteremia Gwendolyn albicans tracheal aspirate Small bowel obstruction/necrotic bowel s/p ex lap with extensive lysis of adhesions, 2 small bowel resections with primary anastomosis Acute hypoxic respiratory failure Postoperative ileus Atrial fibrillation with RVR Hyperkalemia Gwendolyn albicans in tracheal aspirate from 5/1 ESRD on PD, PermCath to be placed Transaminitis Systolic CHF(EF 35%) Crohn's disease Hypertension -CCM, surgery, infectious disease, nephrology, vascular surgery, cardiology consulted, appreciate recommendations -S/p ex lap with extensive expectations, 2 small bowel resections with primary anastomosis with surgery on 12/23 -s/p PICC and Permacath placement with vascular surgery on 12/27 -Extubated on 12/28, reintubated 12/31 for respiratory distress -Vasopressor support with Levophed and vasopressin -Transitioned to HD from PD -HD per nephro -NPO -PPN -NGT to LIS -IV antibiotics -12/29 echocardiogram shows moderate concentric LVH, small pericardial effusion, transmitral Doppler flow pattern is grade 1 abnormal relaxation pattern, left- ventricular systolic function normal, LVEF 50 to 55%, no wall motion abnormalities. -01/01 CT abdomen/pelvis shows small pericardial effusion, mild coronary artery atherosclerotic calcification, small bilateral pleural effusions with associated volume loss, no convincing evidence of bowel obstruction or inflammation, postoperative changes from interval/recent midline laparotomy with a moderate amount of free fluid throughout the abdomen, small amount of dependent free air presumably postoperative -Tobacco abuse cessation counseling -Trend CBC, BMP DVT/GI prophylaxis: PPI, heparin subcu, SCDs to bilateral lower extremities while in bed Disposition: ICU Critical care statement The high probability of a clinically significant, sudden or life threatening deterioration of the [pulmonary, cardiac, neuro, renal] system(s) required my full and direct attention, intervention and personal management. The aggregate critical care time was [35] minutes. This time is in addition to time spent performing reported procedures but includes the following: [x] Data Review and interpretation [x] Patient assessment and monitoring of vital signs [x] Documentation [x] Medication orders and management History Interval history: This is a 60-year-old male with ESRD on peritoneal dialysis, Crohn's, hypertension, systolic CHF (EF 35%) who was admitted with sepsis, peritonitis, small bowel obstruction and now has gram-positive cocci bacteremia. Patient seen and examined, resting comfortably. No new complaints reported to me. Still on the ventilator. Hospitalist Physical - Physical exam Narrative exam: General appearance: Present: no acute distress, other (Sedated on mechanical ventilation) - EENT Eyes: Present: PERRL ENT: poor dentition - Neck Neck: Absent: masses or JVD, cervical LAD - Respiratory Respiratory effort: normal Respiratory: bilateral: diminished - Cardiovascular Rhythm: irregularly irregular Heart Sounds: Present: S1 & S2. Absent: systolic murmur, diastolic murmur - Extremities Extremities: no ischemia, pulses intact, pulses symmetrical, No edema, normal temperature, normal color Peripheral Pulses: within normal limits - Abdominal General gastrointestinal: distended, rigid, absent bowel sounds - Integumentary Integumentary: Present: warm, dry - Neurologic Neurologic: other (sedated and intubated) - Allied Health Allied health notes reviewed: nursing - Constitutional Vitals: Temp Pulse Resp BP Pulse Ox 98.8 F 82 17 136/65 97 01/02/21 13:30 01/02/21 14:01 01/02/21 14:01 01/02/21 14:01 01/02/21 14:01 General appearance: Present: no acute distress, other (Sedated on mechanical ventilation) HEART Score - HEART Score Troponin: Troponin T 0.021 ng/mL (0.00-0.029) 12/22/20 14:38 Results - Labs CBC & Chem 7: 01/03/21 04:37 01/03/21 04:37 Labs: Laboratory Last Values WBC 17.5 K/mm3 (4.5-11.0) H 01/02/21 08:00 RBC 2.31 M/mm3 (3.65-5.03) L 01/02/21 08:00 Hgb 6.7 gm/dl (11.8-15.2) L 01/02/21 08:00 Hct 22.1 % (35.5-45.6) L D 01/02/21 08:00 MCV 96 fl (84-94) H 01/02/21 08:00 MCH 29 pg (28-32) 01/02/21 08:00 MCHC 30 % (32-34) L 01/02/21 08:00 RDW 18.4 % (13.2-15.2) H 01/02/21 08:00 Plt Count 216 K/mm3 (140-440) 01/02/21 08:00 Lymph % (Auto) 6.5 % (13.4-35.0) L 12/28/20 05:40 [place] % (Auto) 16.7 % (0.0-7.3) H 12/28/20 05:40 Eos % (Auto) 3.2 % (0.0-4.3) 12/28/20 05:40 Baso % (Auto) 1.0 % (0.0-1.8) 12/28/20 05:40 Lymph # (Auto) 0.3 K/mm3 (1.2-5.4) L 12/28/20 05:40 [place] # (Auto) 0.7 K/mm3 (0.0-0.8) 12/28/20 05:40 Eos # (Auto) 0.1 K/mm3 (0.0-0.4) 12/28/20 05:40 Baso # (Auto) 0.0 K/mm3 (0.0-0.1) 12/28/20 05:40 Add Manual Diff Complete 01/01/21 17:58 Total Counted 100 01/01/21 17:58 Seg Neutrophils % 71.1 % (40.0-70.0) H 12/28/20 05:40 Seg Neuts % (Manual) 84.0 % (40.0-70.0) H 01/01/21 17:58 Band Neutrophils % 1.0 % 12/29/20 05:16 Lymphocytes % (Manual) 4.0 % (13.4-35.0) L 01/01/21 17:58 Reactive Lymphs % (Man) 1.0 % 12/29/20 05:16 Monocytes % (Manual) 12.0 % (0.0-7.3) H 01/01/21 17:58 Eosinophils % (Manual) 2.0 % (0.0-4.3) 12/29/20 05:16 Metamyelocytes % 2.0 % 12/29/20 05:16 Nucleated RBC % Not Reportable 01/01/21 17:58 Seg Neutrophils # 3.1 K/mm3 (1.8-7.7) 12/28/20 05:40 Seg Neutrophils # Man 22.6 K/mm3 (1.8-7.7) H 01/01/21 17:58 Band Neutrophils # 0.0 K/mm3 01/01/21 17:58 Lymphocytes # (Manual) 1.1 K/mm3 (1.2-5.4) L 01/01/21 17:58 Abs React Lymphs (Man) 0.0 K/mm3 01/01/21 17:58 Monocytes # (Manual) 3.2 K/mm3 (0.0-0.8) H 01/01/21 17:58 Eosinophils # (Manual) 0.0 K/mm3 (0.0-0.4) 01/01/21 17:58 Basophils # (Manual) 0.0 K/mm3 (0.0-0.1) 01/01/21 17:58 Metamyelocytes # 0.0 K/mm3 01/01/21 17:58 Myelocytes # 0.0 K/mm3 01/01/21 17:58 Promyelocytes # 0.0 K/mm3 01/01/21 17:58 Blast Cells # 0.0 K/mm3 01/01/21 17:58 WBC Morphology Not Reportable 01/01/21 17:58 Hypersegmented Neuts Not Reportable 01/01/21 17:58 Hyposegmented Neuts Not Reportable 01/01/21 17:58 Hypogranular Neuts Not Reportable 01/01/21 17:58 Smudge Cells Not Reportable 01/01/21 17:58 Toxic Granulation Not Reportable 01/01/21 17:58 Toxic Vacuolation Not Reportable 01/01/21 17:58 Dohle Bodies Not Reportable 01/01/21 17:58 Pelger-Huet Anomaly Not Reportable 01/01/21 17:58 Lamar Rods Not Reportable 01/01/21 17:58 Platelet Estimate Not Reportable 01/01/21 17:58 Clumped Platelets Not Reportable 01/01/21 17:58 Plt Clumps, EDTA Not Reportable 01/01/21 17:58 Large Platelets Not Reportable 01/01/21 17:58 Giant Platelets Not Reportable 01/01/21 17:58 Platelet Satelliting Not Reportable 01/01/21 17:58 Plt Morphology Comment Not Reportable 01/01/21 17:58 RBC Morphology Normal 01/01/21 17:58 Dimorphic RBCs Not Reportable 01/01/21 17:58 Polychromasia Not Reportable 01/01/21 17:58 Hypochromasia Not Reportable 01/01/21 17:58 Poikilocytosis Not Reportable 01/01/21 17:58 Anisocytosis Not Reportable 01/01/21 17:58 Microcytosis Not Reportable 01/01/21 17:58 Macrocytosis Not Reportable 01/01/21 17:58 Spherocytes Not Reportable 01/01/21 17:58 Pappenheimer Bodies Not Reportable 01/01/21 17:58 Sickle Cells Not Reportable 01/01/21 17:58 Target Cells Not Reportable 01/01/21 17:58 Tear Drop Cells Not Reportable 01/01/21 17:58 Ovalocytes Not Reportable 01/01/21 17:58 Helmet Cells Not Reportable 01/01/21 17:58 [place] Bodies Not Reportable 01/01/21 17:58 [place] Rings Not Reportable 01/01/21 17:58 [place] Cells Not Reportable 01/01/21 17:58 Bite Cells Not Reportable 01/01/21 17:58 Crenated Cell Not Reportable 01/01/21 17:58 Elliptocytes Not Reportable 01/01/21 17:58 Acanthocytes (Spur) Not Reportable 01/01/21 17:58 Rouleaux Not Reportable 01/01/21 17:58 Hemoglobin C Crystals Not Reportable 01/01/21 17:58 Schistocytes Not Reportable 01/01/21 17:58 Malaria parasites Not Reportable 01/01/21 17:58 Lucas Bodies Not Reportable 01/01/21 17:58 Hem Pathologist Commnt No 01/01/21 17:58 PT 16.9 Sec. (12.2-14.9) H 01/01/21 12:45 INR 1.39 (0.87-1.13) H 01/01/21 12:45 APTT 25.1 Sec. (24.2-36.6) 12/22/20 14:38 ABG pH 7.329 (7.320-7.450) 01/02/21 03:05 POC ABG pCO2 43.5 mmHg (32.0-48.0) 01/02/21 03:05 ABG pCO2 33.9 mm Hg 12/31/20 09:38 POC ABG pO2 81.8 mmHg (83-108) L 01/02/21 03:05 ABG pO2 354.0 mm Hg (80.0-90.0) H 12/31/20 09:38 POC ABG HCO3 22.4 01/02/21 03:05 ABG HCO3 22.0 mmol/L (20.0-26.0) 12/31/20 09:38 ABG O2 Saturation 95.7 (0-100) 01/02/21 03:05 ABG O2 Content 13.5 (0.0-44) 12/31/20 09:38 POC ABG Base Excess -3.4 01/02/21 03:05 ABG Base Excess -1.9 mmol/L (-2.0-3.0) 12/31/20 09:38 ABG Hemoglobin 8.0 (12.0-17.5) L 01/02/21 03:05 ABG Oxyhemoglobin 94.0 (94-98) 01/02/21 03:05 ABG Carboxyhemoglobin 1.0 % (0.0-5.0) 12/31/20 09:38 ABG Methemoglobin 0.3 (0.0-1.5) 01/02/21 03:05 ABG Sodium 129.8 mmol/L (136.0-145.0) L 01/02/21 03:05 ABG Potassium 5.4 mmol/L (3.40-4.50) H 01/02/21 03:05 ABG Chloride 101.0 mmol/L (98-107) 01/02/21 03:05 ABG Glucose 257 mg/dL (65-95) H 01/02/21 03:05 Oxyhemoglobin 97.9 % (95.0-99.0) 12/31/20 09:38 Carboxyhemoglobin 1.5 (0.5-1.5) 01/02/21 03:05 FiO2 100 % 12/31/20 09:38 FiO2 % 40.0 01/02/21 03:05 Sodium 134 mmol/L (137-145) L 01/02/21 08:00 Potassium 5.3 mmol/L (3.6-5.0) H 01/02/21 08:00 Chloride 92.9 mmol/L (98-107) L 01/02/21 08:00 Carbon Dioxide 22 mmol/L (22-30) 01/02/21 08:00 Anion Gap 24 mmol/L 01/02/21 08:00 BUN 101 mg/dL (9-20) H 01/02/21 08:00 Creatinine 10.9 mg/dL (0.8-1.3) H 01/02/21 08:00 Estimated GFR 6 ml/min 01/02/21 08:00 BUN/Creatinine Ratio 9 % 01/02/21 08:00 Glucose 560 mg/dL (75-100) H* 01/02/21 08:00 POC Glucose 205 mg/dL (70-105) H 01/02/21 11:26 Lactic Acid 1.40 mmol/L (0.7-2.0) 12/24/20 15:06 Calcium 7.6 mg/dL (8.4-10.2) L 01/02/21 08:00 Phosphorus 6.50 mg/dL (2.5-4.5) H 01/02/21 08:00 Magnesium 1.90 mg/dL (1.7-2.3) 01/02/21 08:00 Total Bilirubin 2.10 mg/dL (0.1-1.2) H 01/01/21 17:58 AST 223 units/L (5-40) H 01/01/21 17:58 ALT 100 units/L (7-56) H 01/01/21 17:58 Alkaline Phosphatase 206 units/L (35-129) H 01/01/21 17:58 Ammonia 30.0 umol/L (25-60) 12/22/20 14:38 Troponin T 0.021 ng/mL (0.00-0.029) 12/22/20 14:38 Total Protein 4.8 g/dL (6.3-8.2) L 01/01/21 17:58 Albumin 1.9 g/dL (3.9-5) L 01/01/21 17:58 Albumin/Globulin Ratio 0.7 % 01/01/21 17:58 Triglycerides 155 mg/dL (2-149) H 12/30/20 09:00 Lipase 41 units/L (13-60) 12/22/20 14:38 Procalcitonin > 200.00 ng/mL (<0.15) 12/24/20 15:06 TSH 1.470 mlU/mL (0.270-4.200) 12/28/20 19:44 Arterial Blood Glucose 257 mg/dL (65-95) H 01/02/21 03:05 Arterial Blood Ionized Calcium 4.0 mg/dL (4.6-5.3) L 01/02/21 03:05 Urine Color Yellow (Yellow) 12/22/20 18:53 Urine Turbidity Clear (Clear) 12/22/20 18:53 Urine pH 7.0 (5.0-7.0) 12/22/20 18:53 Ur Specific [place] 1.012 (1.003-1.030) 12/22/20 18:53 Urine Protein >500 mg/dL (Negative) 12/22/20 18:53 Urine Glucose (UA) Neg mg/dL (Negative) 12/22/20 18:53 Urine Ketones Neg mg/dL (Negative) 12/22/20 18:53 Urine Blood Neg (Negative) 12/22/20 18:53 Urine Nitrite Neg (Negative) 12/22/20 18:53 Urine Bilirubin Neg (Negative) 12/22/20 18:53 Urine Urobilinogen < 2.0 mg/dL (<2.0) 12/22/20 18:53 Ur Leukocyte Esterase Neg (Negative) 12/22/20 18:53 Urine WBC (Auto) < 1.0 /HPF (0.0-6.0) 12/22/20 18:53 Urine RBC (Auto) 1.0 /HPF (0.0-6.0) 12/22/20 18:53 Fluid Type Dialysate 12/22/20 Unknown Fluid Color Colorless 12/22/20 Unknown Fluid Appearance Cloudy 12/22/20 Unknown Fluid WBC 208 /mm3 12/22/20 Unknown Fluid RBC 45 /mm3 12/22/20 Unknown Fluid Seg Neutrophils 82.0 % 12/22/20 Unknown Fluid Lymphocytes 11.0 % 12/22/20 Unknown Fluid Reactive Lymphs 0 % 12/22/20 Unknown Fluid Monocytes 7.0 % 12/22/20 Unknown Fluid Eosinophils 0 % 12/22/20 Unknown Fluid Basophils 0 % 12/22/20 Unknown Random Vancomycin 13.7 ug/mL (0-40.0) 12/26/20 Unknown Hepatitis A IgM Ab Non-reactive (NonReactive) 12/23/20 11:38 Hep Bs Antigen Non-reactive (Negative) 12/23/20 11:38 Hep B Core IgM Ab Non-reactive (NonReactive) 12/23/20 11:38 Hepatitis C Antibody Non-reactive (NonReactive) 12/23/20 11:38 Blood Type A POSITIVE 01/01/21 11:31 Antibody Screen Negative 01/01/21 11:31 Crossmatch See Detail 01/01/21 11:31 Microbiology: Microbiology 12/31/20 07:11 Tracheal Aspirate Sputum Culture - Final Jeffery/IV: Voiding Method Incontinent Active Medications - Current Medications Current Medications: Generic Name Dose Route Start Last Admin Trade Name Freq PRN Reason Stop Dose Admin Acetaminophen 650 mg 12/31/20 15:30 12/31/20 15:13 Acetaminophen 650 Mg Rect Supp CA 650 mg Q6H PRN Administration Non Cardiac Pain or Temp>100.5 Albuterol 2.5 mg 12/22/20 19:42 Albuterol 2.5 Mg/3 Ml Nebu IH Q4HRT PRN Shortness Of Breath Digoxin 0.125 mg 12/31/20 10:00 01/02/21 09:30 Digoxin 0.5 Mg/2 Ml Inj IV Not Given Q48HR THOMAS Famotidine 10 mg 12/24/20 13:00 01/02/21 09:28 Famotidine 20 Mg/2 Ml Inj IV 10 mg BID THOMAS Administration Fentanyl 50 mcg 12/24/20 11:35 01/01/21 11:28 Fentanyl 100 Mcg/2 Ml Inj IV 50 mcg Q10MIN PRN Administration ANALGESIA Haloperidol Lactate 5 mg 12/29/20 14:16 12/31/20 00:19 Haloperidol Lactate 5 Mg/1 Ml Inj IV 5 mg Q12H PRN Administration Agitation Heparin Sodium (Porcine) 5,000 unit 12/24/20 10:00 01/02/21 09:29 Heparin 5,000 Unit/1 Ml Vial SUB-Q 5,000 unit Q12HR THOMAS Administration Hydralazine HCl 10 mg 12/30/20 12:00 01/02/21 13:44 Hydralazine 20 Mg/1 Ml Inj IV Not Given Q4HR THOMAS Hydrophilic Ointment 1 applic 12/31/20 06:39 Lip Therapy Vaseline TP Q2HR PRN Dry Lips Sodium Chloride 100 mls @ 999 mls/hr 12/23/20 11:03 Nacl 0.9% IV RYLAND PRN Hypotension Propofol 1,000 mg in 100 mls @ 5.484 mls/hr 12/23/20 19:00 01/02/21 07:55 Diprivan 10 Mg/Ml IV 0 mcg/kg/min TITR THOMAS 0 mls/hr Titration Protocol 10 MCG/KG/MIN Fluconazole 200 mg in 100 mls @ 100 mls/hr 12/27/20 13:00 01/02/21 13:43 Diflucan IV 100 mls/hr Q24H THOMAS Administration Protocol Fentanyl Citrate 2,000 mcg in 100 mls @ 4.725 mls/hr 12/31/20 08:00 01/02/21 09:28 Fentanyl Drip Premix IV 1 mcg/kg/hr TITR THOMAS 4.725 mls/hr Administration Protocol 1 MCG/KG/HR NORepinephrine/NS 8 MG-250 ML 8 mg in 250 mls @ 3.75 mls/hr 12/31/20 09:00 01/02/21 09:29 Norepinephrine/Ns 8 Mg-250 Ml (Double Conc) IV 10 mcg/min TITRATE THOMAS 18.75 mls/hr Administration Protocol 2 MCG/MIN Piperacillin Sod/Tazobactam Sod 2.25 gm in 50 mls @ 100 mls/hr 12/31/20 12:00 01/02/21 13:10 Zosyn/Ns 2.25 Gm/50ml IV 01/06/21 20:29 100 mls/hr Q8H THOMAS Administration Protocol Vasopressin 20 unit/ Sodium 101 mls @ 9.09 mls/hr 12/31/20 21:00 01/02/21 03:28 Chloride IV 0.03 units/min TITR THOMAS 9.09 mls/hr Administration Protocol 0.03 UNITS/MIN Phenylephrine HCl 100 mg/ 100 mls @ 3 mls/hr 12/31/20 23:45 01/01/21 18:30 Sodium Chloride IV 0 mcg/min TITR THOMAS 0 mls/hr Titration Protocol 50 MCG/MIN Amino Acids/Electrolytes/Dextrose 2,016 mls @ 84 mls/hr 01/01/21 20:00 01/01/21 20:50 Tpn Adult IV 01/02/21 19:59 84 mls/hr DAILY@2000 THOMAS Administration Protocol Sodium Bicarbonate 150 meq/ 1,150 mls @ 75 mls/hr 01/01/21 20:00 01/02/21 10:57 Dextrose IV 75 mls/hr DIRECT THOMAS Administration Sodium Chloride 500 mls @ 0 mls/hr 01/02/21 10:14 Nacl 0.9% 500 Ml IV 01/02/21 23:59 ONCE NR As Directed Amino Acids/Electrolytes/Dextrose 2,016 mls @ 84 mls/hr 01/02/21 20:00 Tpn Adult IV 01/03/21 19:59 DAILY@1999 [facility] Protocol Fat Emulsion Intravenous 250 mls @ 21 mls/hr 01/02/21 20:00 Intralipid 20% IV 01/03/21 08:00 DAILY@1999 [facility] Metoprolol Tartrate 5 mg 12/30/20 12:00 01/02/21 13:44 Metoprolol Tartrate 5 Mg/5 Ml Inj IV Not Given Q4HR [facility] Multi-Ingred Cream/Lotion/Oil/Oint 1 applic 12/31/20 06:39 Mineral Oil/Petrolatum, White Ophth Oint 3.5 Gm OU Q4HR PRN Dry Eye(s) Sodium Chloride 10 ml 12/22/20 22:00 01/02/21 09:34 Sodium Chloride 0.9% 10 Ml Flush Syringe IV 10 ml BID THOMAS Administration Sodium Chloride 10 ml 12/22/20 19:42 Sodium Chloride 0.9% 10 Ml Flush Syringe IV PRN PRN LINE FLUSH Nutrition/Malnutrition Assess - Dietary Evaluation Nutrition/Malnutrition Findings: Nutrition Notes Start: 12/24/20 12:36 Freq: Status: Active Protocol: Document 01/02/21 11:54 (Rec: 01/02/21 12:06 [email or web address]) Nutrition Notes Initial or Follow up Reassessment Current Diagnosis CKD (stage V CKD),Sepsis, Hypertension,Heart Failure Other Pertinent Diagnosis bacterial peritonitis, on HD MWF/PRN, SBO, Crohns disease, Anemia Current Diet TPN at 84 ml/hr Labs/Tests Na 134 K 5.3 Phos 6.5 Pertinent Medications Norepinnephrine Vasopressin Height 5 ft 7 in Weight 94.5 kg [place] Body Weight (kg) 67.27 BMI 32.6 Weight Status Obese Subjective/Other Information TPN day 8. Pt receiving HD at time of visit. Per RN, no plans for TF currently. Percent of energy/protein needs met: 79%/100% Burn Absent Trauma Absent Difficulty In Swallowing Skin Integrity/Comment Intact Current % PO Negligible Minimum of two criteria No physical signs of malnutrition #1 Nutrition Diagnosis Inadequate oral intake Diagnosis Progress(for reassessment Continues documentation) Is patient on ventilator? Yes Is Patient Ambulatory and/or Out of Bed No REE-([place]-confined to bed) 9.168 Kcal/Kg value to use for calculation 21 Approximate Energy Requirements Using 1985 kcal/Kg Calculation Used for Recommendations Kcal/kg Additional Notes Protein needs: >97g (>1.2g/kg AdjBW) fluid needs: 1 mL/kcal or per MD Nutrition Intervention Change Diet Order: Continue TPN Nutrition Support: TPN at 84ml/hr: AA 5.5% Ca 5 mEq Phos 0 mmol Cl/Acetate 75%/25% 1422 mOsm Lipids MVI Kcal 1,960 Protein (gm) 110 Carbohydrates (gm) 300 Fat (gm) 50 Fluid (mL) 2,266 Goal #1 Meet kcal and protein needs as best as possible Anticipated Discharge Needs: unable to determine at this time Follow-Up By: 01/03/21 Additional Comments Labs in AM: BMP, Mg and Phos
--- NOTE | 2021-01-02 17:07 | Progress Note ---
Assessment and Plan Assessment: - ESRD on peritoneal dialysis. He has been on peritoneal dialysis for the past 2 years. No history of peritonitis. - small bowel obstruction s/p exp, necrotic bowel - respiratory failure on vent, now re-intubated - severe sepsis - gram positive cocci bacteremia - Septic shock - Hyperkalemia - Anemia of ESRD - Hyperglycemia - Postoperative ileus - a-fib, new onset Plan: - transitioned to HD, continue HD MWF, plan for HD today - appreciate vascular for permacath placement [facility] on 12/27; pulm removed RIJ vascath 12/28 - continue IV empiric abx per ID - s/p ex lap, now off PD, will not be able to continue pd with adhesion and sbo s/p resection - uf as tolerated with HD - will need outpatient hd placement once stable - stopped binders and sensipar - strict i/os - keep MAP >65 - continue albumin IV - monitor electrolytes daily - appreciate multidisplinary approach to care from surgery, ID, pulm input - a-fib management per cardiology - Critical care time - 32 minutes Subjective Date of service: 01/02/21 Principal diagnosis: Ac hypoxemic resp failure; Severe Sepsis; Peritonitis; Acute SBO; ESRD; CHF Interval history: Remains intubated and on vasopressors. Objective - Exam Narrative Exam: General appearance: Sedated, intubated Eyes: anicteric sclerae HENT: Normocephalic, Atraumatic Neck: supple, tracheal midline, no JVD Lungs: Intubated. Mechanical breath sounds. CV: Tachycardic Abdomen: Soft Midline surgical wound with Wound VAC Extremities: no edema, no cyanosis Skin: No rash. Psych: Sedated Neuro: Sedated - Vital Signs Vital signs: Vital Signs - 12hr 01/02/21 01/02/21 01/02/21 05:31 06:01 06:31 Temperature Pulse Rate 86 87 87 Pulse Rate [ From Monitor] Respiratory 17 19 19 Rate Blood Pressure 123/60 150/64 132/61 O2 Sat by Pulse 96 96 95 Oximetry O2 Sat by Pulse Oximetry [ Anterior Bilateral Throughout] 01/02/21 01/02/21 01/02/21 07:01 07:31 08:00 Temperature 99.3 F Pulse Rate 88 88 91 H Pulse Rate [ 91 H From Monitor] Respiratory 18 20 22 Rate Blood Pressure 129/60 135/60 138/62 O2 Sat by Pulse 95 97 98 Oximetry O2 Sat by Pulse Oximetry [ Anterior Bilateral Throughout] 01/02/21 01/02/21 01/02/21 08:31 08:54 09:01 Temperature Pulse Rate 90 92 H 93 H Pulse Rate [ From Monitor] Respiratory 22 21 Rate Blood Pressure 139/65 129/63 125/59 O2 Sat by Pulse 96 100 96 Oximetry O2 Sat by Pulse Oximetry [ Anterior Bilateral Throughout] 01/02/21 01/02/21 01/02/21 09:31 10:01 10:09 Temperature 98.6 F Pulse Rate 91 H 90 91 H Pulse Rate [ From Monitor] Respiratory 18 17 17 Rate Blood Pressure 133/66 132/62 137/61 O2 Sat by Pulse 96 97 Oximetry O2 Sat by Pulse 97 Oximetry [ Anterior Bilateral Throughout] 01/02/21 01/02/21 01/02/21 10:15 10:30 10:31 Temperature Pulse Rate 91 H 95 H 95 H Pulse Rate [ From Monitor] Respiratory 17 Rate Blood Pressure 124/63 124/64 124/64 O2 Sat by Pulse 96 Oximetry O2 Sat by Pulse Oximetry [ Anterior Bilateral Throughout] 01/02/21 01/02/21 01/02/21 10:45 11:00 11:01 Temperature Pulse Rate 99 H 93 H 95 H Pulse Rate [ From Monitor] Respiratory 18 Rate Blood Pressure 113/58 109/67 109/67 O2 Sat by Pulse 95 Oximetry O2 Sat by Pulse Oximetry [ Anterior Bilateral Throughout] 01/02/21 01/02/21 01/02/21 11:15 11:30 11:31 Temperature Pulse Rate 97 H 90 92 H Pulse Rate [ From Monitor] Respiratory 16 Rate Blood Pressure 117/60 139/70 139/70 O2 Sat by Pulse 97 Oximetry O2 Sat by Pulse Oximetry [ Anterior Bilateral Throughout] 01/02/21 01/02/21 01/02/21 11:45 12:00 12:01 Temperature 98.6 F Pulse Rate 90 92 H 93 H Pulse Rate [ 93 H From Monitor] Respiratory 18 17 Rate Blood Pressure 138/67 118/64 118/64 O2 Sat by Pulse 97 97 Oximetry O2 Sat by Pulse Oximetry [ Anterior Bilateral Throughout] 01/02/21 01/02/21 01/02/21 12:15 12:16 12:30 Temperature Pulse Rate 91 H 95 H 92 H Pulse Rate [ From Monitor] Respiratory Rate Blood Pressure 127/60 127/60 106/62 O2 Sat by Pulse 98 Oximetry O2 Sat by Pulse Oximetry [ Anterior Bilateral Throughout] 01/02/21 01/02/21 01/02/21 12:31 12:45 13:00 Temperature Pulse Rate 93 H 91 H 91 H Pulse Rate [ From Monitor] Respiratory 17 Rate Blood Pressure 106/62 126/64 111/62 O2 Sat by Pulse 97 Oximetry O2 Sat by Pulse Oximetry [ Anterior Bilateral Throughout] 01/02/21 01/02/21 01/02/21 13:01 13:17 13:30 Temperature 98.8 F Pulse Rate 91 H 89 92 H Pulse Rate [ From Monitor] Respiratory 21 18 Rate Blood Pressure 111/62 143/59 107/61 O2 Sat by Pulse 96 Oximetry O2 Sat by Pulse 96 Oximetry [ Anterior Bilateral Throughout] 01/02/21 01/02/21 01/02/21 13:31 14:01 16:00 Temperature 98.4 F Pulse Rate 93 H 82 Pulse Rate [ From Monitor] Respiratory 17 17 Rate Blood Pressure 107/61 136/65 O2 Sat by Pulse 96 97 Oximetry O2 Sat by Pulse Oximetry [ Anterior Bilateral Throughout] 01/02/21 01/02/21 16:44 16:59 Temperature 98.8 F Pulse Rate 90 88 Pulse Rate [ From Monitor] Respiratory 20 Rate Blood Pressure 118/58 O2 Sat by Pulse 96 94 Oximetry O2 Sat by Pulse Oximetry [ Anterior Bilateral Throughout] - Lab 01/02/21 08:00 01/02/21 15:00 Most recent lab results ABG pH 7.329 (7.320-7.450) 01/02/21 03:05 ABG pCO2 33.9 mm Hg 12/31/20 09:38 ABG pO2 354.0 mm Hg (80.0-90.0) H 12/31/20 09:38 ABG HCO3 22.0 mmol/L (20.0-26.0) 12/31/20 09:38 ABG O2 Saturation 95.7 (0-100) 01/02/21 03:05 Calcium 7.6 mg/dL (8.4-10.2) L 01/02/21 08:00 Phosphorus 6.50 mg/dL (2.5-4.5) H 01/02/21 08:00 Magnesium 1.90 mg/dL (1.7-2.3) 01/02/21 08:00 Medications & Allergies - Medications Allergies/Adverse Reactions: Allergies No Known Allergies Allergy (Verified 06/09/20 15:27) Home Medications: Home Medications Medication Instructions Recorded Confirmed Last Taken Type Albuterol Mdi (or & Nicu Only) 2 puff IH QID PRN #1 inhalation 04/01/17 11/01/20 10/31/20 09:00 Rx [ProAir HFA Inhaler] Calcium Acetate 667 mg PO DAILY 04/20/20 11/01/20 10/31/20 09:00 History Centrum Men's Tablet 1 tab PO DAILY 04/20/20 11/01/20 10/31/20 09:00 History Cinacalcet 30 mg PO DAILY 04/20/20 11/01/20 10/31/20 09:00 History Dialyvite with Zinc Tablet 1 tab PO DAILY 04/20/20 11/01/20 10/31/20 09:00 History Magnesium 250 mg PO BID 04/20/20 11/01/20 10/31/20 17:00 History Triamcinolone 0.1% 1 1000units TRANSDERMA DAILY 04/20/20 11/01/20 10/31/20 09:00 History Vit B12/Folic Acid/B6/Aa No.15 1,000 mg PO DAILY 04/20/20 11/01/20 10/31/20 09:00 History amLODIPine 10 mg PO DAILY 06/09/20 11/01/20 10/31/20 09:00 History AtorvaSTATin 40 mg PO HS 11/01/20 11/01/20 10/31/20 21:00 History Benadryl 25 mg PO HS 11/01/20 11/01/20 10/31/20 21:00 History Diclofenac 1 TRANSDERMA QID 11/01/20 10/31/20 19:00 History Fluticasone Propionate 1 spray INTRANASAL DAILY 11/01/20 11/01/20 10/31/20 09:00 History Vitamin D3 2,000 units 11/01/20 10/31/20 09:00 History carvediloL 12.5 mg PO DAILY 11/01/20 11/01/20 10/31/20 09:00 History hydrALAZINE 100 mg PO TID 0311/01/20 10/31/20 19:00 History Active Medications: Generic Name Dose Route Start Last Admin Trade Name Freq PRN Reason Stop Dose Admin Acetaminophen 650 mg 12/31/20 15:30 12/31/20 15:13 Acetaminophen 650 Mg Rect Supp [place] 650 mg Q6H PRN Administration Non Cardiac Pain or Temp>100.5 Albuterol 2.5 mg 12/22/20 19:42 Albuterol 2.5 Mg/3 Ml Nebu IH Q4HRT PRN Shortness Of Breath Digoxin 0.125 mg 12/31/20 10:00 01/02/21 09:30 Digoxin 0.5 Mg/2 Ml Inj IV Not Given Q48HR THOMAS Famotidine 10 mg 12/24/20 13:00 01/02/21 09:28 Famotidine 20 Mg/2 Ml Inj IV 10 mg BID THOMAS Administration Fentanyl 50 mcg 12/24/20 11:35 01/01/21 11:28 Fentanyl 100 Mcg/2 Ml Inj IV 50 mcg Q10MIN PRN Administration ANALGESIA Haloperidol Lactate 5 mg 12/29/20 14:16 12/31/20 00:19 Haloperidol Lactate 5 Mg/1 Ml Inj IV 5 mg Q12H PRN Administration Agitation Heparin Sodium (Porcine) 5,000 unit 12/24/20 10:00 01/02/21 09:29 Heparin 5,000 Unit/1 Ml Vial SUB-Q 5,000 unit Q12HR THOMAS Administration Hydralazine HCl 10 mg 12/30/20 12:00 01/02/21 17:02 Hydralazine 20 Mg/1 Ml Inj IV Not Given Q4HR THOMAS Hydrophilic Ointment 1 applic 12/31/20 06:39 Lip Therapy Vaseline TP Q2HR PRN Dry Lips Sodium Chloride 100 mls @ 999 mls/hr 12/23/20 11:03 Nacl 0.9% IV [place] PRN Hypotension Propofol 1,000 mg in 100 mls @ 5.484 mls/hr 12/23/20 19:00 01/02/21 07:55 Diprivan 10 Mg/Ml IV 0 mcg/kg/min TITR THOMAS 0 mls/hr Titration Protocol 10 MCG/KG/MIN Fluconazole 200 mg in 100 mls @ 100 mls/hr 12/27/20 13:00 01/02/21 13:43 Diflucan IV 100 mls/hr Q24H THOMAS Administration Protocol Fentanyl Citrate 2,000 mcg in 100 mls @ 4.725 mls/hr 12/31/20 08:00 01/02/21 09:28 Fentanyl Drip Premix IV 1 mcg/kg/hr TITR THOMAS 4.725 mls/hr Administration Protocol 1 MCG/KG/HR NORepinephrine/NS 8 MG-250 ML 8 mg in 250 mls @ 3.75 mls/hr 12/31/20 09:00 01/02/21 17:01 Norepinephrine/Ns 8 Mg-250 Ml (Double Conc) IV 6 mcg/min TITRATE THOMAS 11.25 mls/hr Titration Protocol 2 MCG/MIN Piperacillin Sod/Tazobactam Sod 2.25 gm in 50 mls @ 100 mls/hr 12/31/20 12:00 01/02/21 13:10 Zosyn/Ns 2.25 Gm/50ml IV 01/06/21 20:29 100 mls/hr Q8H THOMAS Administration Protocol Vasopressin 20 unit/ Sodium 101 mls @ 9.09 mls/hr 12/31/20 21:00 01/02/21 15:01 Chloride IV 0.03 units/min TITR THOMAS 9.09 mls/hr Administration Protocol 0.03 UNITS/MIN Phenylephrine HCl 100 mg/ 100 mls @ 3 mls/hr 12/31/20 23:45 01/01/21 18:30 Sodium Chloride IV 0 mcg/min TITR THOMAS 0 mls/hr Titration Protocol 50 MCG/MIN Amino Acids/Electrolytes/Dextrose 2,016 mls @ 84 mls/hr 01/01/21 20:00 01/01/21 20:50 Tpn Adult IV 01/02/21 19:59 84 mls/hr DAILY@1999 THOMAS Administration Protocol Sodium Bicarbonate 150 meq/ 1,150 mls @ 75 mls/hr 01/01/21 20:00 01/02/21 10:57 Dextrose IV 75 mls/hr DIRECT THOMAS Administration Sodium Chloride 500 mls @ 0 mls/hr 01/02/21 10:14 Nacl 0.9% 500 Ml IV 01/02/21 23:59 ONCE NR As Directed Amino Acids/Electrolytes/Dextrose 2,016 mls @ 84 mls/hr 01/02/21 20:00 Tpn Adult IV 01/03/21 19:59 DAILY@1999 THOMAS Protocol Fat Emulsion Intravenous 250 mls @ 21 mls/hr 01/02/21 20:00 Intralipid 20% IV 01/03/21 08:00 DAILY@1999 [facility] Metoprolol Tartrate 5 mg 12/30/20 12:00 01/02/21 17:02 Metoprolol Tartrate 5 Mg/5 Ml Inj IV Not Given Q4HR [facility] Multi-Ingred Cream/Lotion/Oil/Oint 1 applic 12/31/20 06:39 Mineral Oil/Petrolatum, White Ophth Oint 3.5 Gm OU Q4HR PRN Dry Eye(s) Sodium Chloride 10 ml 12/22/20 22:00 01/02/21 09:34 Sodium Chloride 0.9% 10 Ml Flush Syringe IV 10 ml BID [facility] Administration Sodium Chloride 10 ml 12/22/20 19:42 Sodium Chloride 0.9% 10 Ml Flush Syringe IV PRN PRN LINE FLUSH
[2021-01-02] MEDS ORDERED: TOTAL PARENTERAL NUTRITION 2,016 ML IV SCH (20:00)
[2021-01-02] MEDS ORDERED: FAT EMULSIONS 20% 250 ML IV SCH (20:00)
--- NOTE | 2021-01-03 00:09 | XRay Report ---
CHEST 1 VIEW 01/02/2021 10:57 PM INDICATION / CLINICAL INFORMATION: change in condition. COMPARISON: Previous day. FINDINGS: SUPPORT DEVICES: Unchanged. HEART / MEDIASTINUM: Stable. LUNGS / PLEURA: Increasing consolidation right base greater medially. Creasing volume loss left base. ADDITIONAL FINDINGS: No significant additional findings. IMPRESSION: 1. New consolidation right base. Findings worrisome for aspiration. 2. Interval volume loss left base Signer Name: Isra Sahni MD Signed: 01/03/2021 12:04 AM Workstation Name: [id number]
[2021-01-03] MEDS: fentaNYL DRIP Premix 2,000 MCG/100 ML BAG IV SCH ×3 (01:45→21:30)
[2021-01-03] MEDS: SODIUM BICARBONATE 150 MEQ in DEXTROSE 5% IN WATER 1,000 ML IV SCH (02:30)
[2021-01-03] MEDS: PIPERACIL-TAZO 2.25 GM/50 ML 2.25 GM/50 ML BAG IV SCH ×3 (04:35→20:26)
[2021-01-03 05:21] LABS: Hematocrit 21.6 % (35.5-45.6); Hemoglobin 7.3 gm/dl (11.8-15.2); Mean Corpuscular HGB Conc 34 % (32-34); Mean Corpuscular Volume 91 fl (84-94); Platelet Count 207 K/mm3 (140-440); Red Blood Count 2.38 M/mm3 (3.65-5.03); Red Cell Distribution Width 16.6 % (13.2-15.2)
[2021-01-03 05:41] LABS: Calcium 7.8 mg/dL (8.4-10.2)
[2021-01-03] MEDS: NORepinephrine/NS 8 MG-250 ML 8 MG/250 ML INFUS..BTL IV SCH (06:00)
[2021-01-03] MEDS: hydrALAZINE 20 MG/1 ML INJ IV SCH ×6 (06:31→22:04)
[2021-01-03] MEDS: METOPROLOL TARTRATE 5 MG/5 ML INJ IV SCH ×5 (06:32→22:00)
--- NOTE | 2021-01-03 08:00 | XRay Report ---
CHEST - 1 VIEW 0734 hours INDICATION: Pneumonia COMPARISON: Yesterday FINDINGS: Support devices: Stable support device positioning. Heart: Stable mild cardiomegaly. Lungs/pleura: There is decreased inspiration compared to yesterday's exam. Hazy opacity in the right perihilar region and larger area of infiltration in the left lower lung appears stable given differe nces in the level of inspiration. No large pleural effusion or pneumothorax. Additional findings: None. IMPRESSION: Unchanged exam. Signer Name: Rodney Ho Jr, MD Signed: 01/03/2021 7:55 AM Workstation Name: [id number]
[2021-01-03] MEDS ORDERED: SODIUM CHLORIDE 0.9% 500 ML 500 ML IV NR (08:49)
--- NOTE | 2021-01-03 10:08 | Progress Note ---
Assessment and Plan POD#11 s/p ex lap with extensive lysis of adhesions and two small bowel resections with primary anastamosis for SBO with necrotic segement small bowel. POD#2 s/p ex lap, resection of perforated anastamosis, washout and abthera wound vac placement. Septic from bowel leak but showing some signs of clinical improvement. Afebrile and stable. Obtained consent from daughter for OR procedure today. Planning abdominal washout with mobilization of colon in anticipation of anastamosis and abdominal wall closure at next procedure on Saturday. keep NGT to suction. Pt in deep sedation due to open abdomen. T&C for 1 unit PRBC for OR in the event there is significant blood loss. Subjective Date of service: 01/03/21 Narrative: Overnight pt had some desaturations that required manipulation of his ventilator settings. CXR showed new R sided atelectasis which may be due to aspiration. Desaturation has resolved and he was weaned of vaso-pressors. Objective Vital Signs - 12hr 01/02/21 01/02/21 01/02/21 22:31 23:01 23:31 Temperature Pulse Rate 89 88 100 H Pulse Rate [ From Monitor] Respiratory 20 21 22 Rate Blood Pressure 121/61 123/56 118/62 O2 Sat by Pulse 93 90 91 Oximetry 01/02/21 01/02/21 01/02/21 23:39 23:41 23:55 Temperature 99.4 F Pulse Rate 92 H 96 H Pulse Rate [ From Monitor] Respiratory 23 Rate Blood Pressure 130/61 122/62 O2 Sat by Pulse 96 100 Oximetry 01/03/21 01/03/21 01/03/21 00:00 00:30 01:01 Temperature Pulse Rate 94 H 92 H 89 Pulse Rate [ 94 H From Monitor] Respiratory 21 16 20 Rate Blood Pressure 122/62 100/61 104/65 O2 Sat by Pulse 100 96 96 Oximetry 01/03/21 01/03/21 01/03/21 01:31 02:01 02:31 Temperature Pulse Rate 88 88 87 Pulse Rate [ From Monitor] Respiratory 16 18 25 H Rate Blood Pressure 126/64 130/66 129/65 O2 Sat by Pulse 95 96 94 Oximetry 01/03/21 01/03/21 01/03/21 03:01 03:31 04:00 Temperature 97.6 F Pulse Rate 83 83 86 Pulse Rate [ 87 From Monitor] Respiratory 17 20 20 Rate Blood Pressure 131/64 136/63 113/59 O2 Sat by Pulse 97 96 100 Oximetry 01/03/21 01/03/21 01/03/21 04:01 04:31 05:00 Temperature Pulse Rate 87 79 87 Pulse Rate [ From Monitor] Respiratory 20 16 18 Rate Blood Pressure 133/68 137/66 120/62 O2 Sat by Pulse 96 94 95 Oximetry 01/03/21 01/03/21 01/03/21 05:31 06:01 06:31 Temperature Pulse Rate 83 81 80 Pulse Rate [ From Monitor] Respiratory 18 15 18 Rate Blood Pressure 126/63 135/65 136/66 O2 Sat by Pulse 96 97 96 Oximetry 01/03/21 01/03/21 01/03/21 07:01 07:31 08:00 Temperature Pulse Rate 80 82 90 Pulse Rate [ 87 From Monitor] Respiratory 14 18 20 Rate Blood Pressure 143/64 135/64 O2 Sat by Pulse 98 96 100 Oximetry 01/03/21 01/03/21 08:01 08:05 Temperature Pulse Rate 84 86 Pulse Rate [ From Monitor] Respiratory 18 Rate Blood Pressure 125/62 125/62 O2 Sat by Pulse 95 97 Oximetry - General physical appearance well developed, no distress, no pain - Respiratory normal expansion, normal respiratory effort, other (on vent intubated) - Abdomen soft, distended, other (wound vac in place with sero-sanguinous drainage. NGT bilious) - Labs 01/03/21 04:37 01/03/21 04:37 Diabetes panel 01/02/21 01/03/21 Range/Units 15:00 04:37 Sodium 136 L (137-145) mmol/L Potassium 4.0 D (3.6-5.0) mmol/L Chloride 94.5 L (98-107) mmol/L Carbon Dioxide 28 (22-30) mmol/L BUN 69 H (9-20) mg/dL Creatinine 8.0 H (0.8-1.3) mg/dL Glucose 241 H 219 H (75-100) mg/dL Calcium 7.8 L (8.4-10.2) mg/dL Calcium panel 01/03/21 Range/Units 04:37 Calcium 7.8 L (8.4-10.2) mg/dL Phosphorus 4.80 H D (2.5-4.5) mg/dL Pituitary panel 01/02/21 01/03/21 Range/Units 15:00 04:37 Sodium 136 L (137-145) mmol/L Potassium 4.0 D (3.6-5.0) mmol/L Chloride 94.5 L (98-107) mmol/L Carbon Dioxide 28 (22-30) mmol/L BUN 69 H (9-20) mg/dL Creatinine 8.0 H (0.8-1.3) mg/dL Glucose 241 H 219 H (75-100) mg/dL Calcium 7.8 L (8.4-10.2) mg/dL Adrenal panel 01/02/21 01/03/21 Range/Units 15:00 04:37 Sodium 136 L (137-145) mmol/L Potassium 4.0 D (3.6-5.0) mmol/L Chloride 94.5 L (98-107) mmol/L Carbon Dioxide 28 (22-30) mmol/L BUN 69 H (9-20) mg/dL Creatinine 8.0 H (0.8-1.3) mg/dL Glucose 241 H 219 H (75-100) mg/dL Calcium 7.8 L (8.4-10.2) mg/dL
[2021-01-03] MEDS: HEPARIN 5,000 UNIT/1 ML VIAL SUB-Q SCH ×2 (10:14→23:06)
[2021-01-03] MEDS: INSULIN GLARGINE 100 UNITS/ML SUB-Q SCH (10:16)
[2021-01-03] MEDS: FAMOTIDINE 20 MG/2 ML INJ IV SCH ×2 (10:22→22:27)
--- NOTE | 2021-01-03 10:57 | Progress Note ---
Assessment and Plan Assessment: - ESRD on peritoneal dialysis. He has been on peritoneal dialysis for 2 years with no history of peritonitis. - small bowel obstruction s/p exp, necrotic bowel - respiratory failure on vent, now re-intubated - severe sepsis - gram positive cocci bacteremia - Septic shock - Hyperkalemia - Anemia of ESRD - Hyperglycemia - Postoperative ileus - a-fib, new onset Plan: - transitioned to HD, continue HD MWF - Labs and volume status acceptable today, plan for next session tomorrow - appreciate vascular for permacath placement [facility] on 12/27; pulm removed RIJ vascath 12/28 - continue IV empiric abx per ID - s/p ex lap, now off PD, will not be able to continue pd with adhesion and sbo s/p resection - uf as tolerated with HD - will need outpatient hd placement once stable - stopped binders and sensipar - strict i/os - keep MAP >65 - continue albumin IV - monitor electrolytes daily - appreciate multidisplinary approach to care from surgery, ID, pulm input - a-fib management per cardiology Subjective Date of service: 01/03/21 Principal diagnosis: Ac hypoxemic resp failure; Severe Sepsis; Peritonitis; Acute SBO; ESRD; CHF Interval history: Issues with desaturation overnight noted. Remains intubated. Off vasopressors. Objective - Exam Narrative Exam: General appearance: Sedated, intubated Eyes: anicteric sclerae HENT: Normocephalic, Atraumatic Neck: supple, tracheal midline, no JVD Lungs: Intubated. Mechanical breath sounds. CV: Tachycardic Abdomen: Soft Midline surgical wound with Wound VAC Extremities: no edema, no cyanosis Skin: No rash. Psych: Sedated Neuro: Sedated - Vital Signs Vital signs: Vital Signs - 12hr 01/02/21 01/02/21 01/02/21 23:01 23:31 23:39 Temperature Pulse Rate 88 100 H 92 H Pulse Rate [ From Monitor] Respiratory 21 22 Rate Blood Pressure 123/56 118/62 130/61 O2 Sat by Pulse 90 91 96 Oximetry 01/02/21 01/02/21 01/03/21 23:41 23:55 00:00 Temperature 99.4 F Pulse Rate 96 H 94 H Pulse Rate [ 94 H From Monitor] Respiratory 23 21 Rate Blood Pressure 122/62 122/62 O2 Sat by Pulse 100 100 Oximetry 01/03/21 01/03/21 01/03/21 00:30 01:01 01:31 Temperature Pulse Rate 92 H 89 88 Pulse Rate [ From Monitor] Respiratory 16 20 16 Rate Blood Pressure 100/61 104/65 126/64 O2 Sat by Pulse 96 96 95 Oximetry 01/03/21 01/03/21 01/03/21 02:01 02:31 03:01 Temperature Pulse Rate 88 87 83 Pulse Rate [ From Monitor] Respiratory 18 25 H 17 Rate Blood Pressure 130/66 129/65 131/64 O2 Sat by Pulse 96 94 97 Oximetry 01/03/21 01/03/21 01/03/21 03:31 04:00 04:01 Temperature 97.6 F Pulse Rate 83 86 87 Pulse Rate [ 87 From Monitor] Respiratory 20 20 20 Rate Blood Pressure 136/63 113/59 133/68 O2 Sat by Pulse 96 100 96 Oximetry 01/03/21 01/03/21 01/03/21 04:31 05:00 05:31 Temperature Pulse Rate 79 87 83 Pulse Rate [ From Monitor] Respiratory 16 18 18 Rate Blood Pressure 137/66 120/62 126/63 O2 Sat by Pulse 94 95 96 Oximetry 01/03/21 01/03/21 01/03/21 06:01 06:31 07:01 Temperature Pulse Rate 81 80 80 Pulse Rate [ From Monitor] Respiratory 15 18 14 Rate Blood Pressure 135/65 136/66 143/64 O2 Sat by Pulse 97 96 98 Oximetry 01/03/21 01/03/21 01/03/21 07:31 08:00 08:01 Temperature Pulse Rate 82 90 84 Pulse Rate [ 87 From Monitor] Respiratory 18 20 18 Rate Blood Pressure 135/64 125/62 O2 Sat by Pulse 96 100 95 Oximetry 01/03/21 08:05 Temperature Pulse Rate 86 Pulse Rate [ From Monitor] Respiratory Rate Blood Pressure 125/62 O2 Sat by Pulse 97 Oximetry - Lab 01/03/21 04:37 01/03/21 04:37 Most recent lab results ABG pH 7.384 (7.320-7.450) 01/03/21 03:45 ABG pCO2 33.9 mm Hg 12/31/20 09:38 ABG pO2 354.0 mm Hg (80.0-90.0) H 12/31/20 09:38 ABG HCO3 22.0 mmol/L (20.0-26.0) 12/31/20 09:38 ABG O2 Saturation 95.6 (0-100) 01/03/21 03:45 Calcium 7.8 mg/dL (8.4-10.2) L 01/03/21 04:37 Phosphorus 4.80 mg/dL (2.5-4.5) H D 01/03/21 04:37 Magnesium 1.80 mg/dL (1.7-2.3) 01/03/21 04:37 Medications & Allergies - Medications Allergies/Adverse Reactions: Allergies No Known Allergies Allergy (Verified 06/09/20 15:27) Home Medications: Home Medications Medication Instructions Recorded Confirmed Last Taken Type Albuterol Mdi (or & Nicu Only) 2 puff IH QID PRN #1 inhalation 04/01/17 11/01/20 10/31/20 09:00 Rx [ProAir HFA Inhaler] Calcium Acetate 667 mg PO DAILY 04/20/20 11/01/20 10/31/20 09:00 History Centrum Men's Tablet 1 tab PO DAILY 04/20/20 11/01/20 10/31/20 09:00 History Cinacalcet 30 mg PO DAILY 04/20/20 11/01/20 10/31/20 09:00 History Dialyvite with Zinc Tablet 1 tab PO DAILY 04/20/20 11/01/20 10/31/20 09:00 History Magnesium 250 mg PO BID 04/20/20 11/01/20 10/31/20 17:00 History Triamcinolone 0.1% 1 1000units TRANSDERMA DAILY 04/20/20 11/01/20 10/31/20 09:00 History Vit B12/Folic Acid/B6/Aa No.15 1,000 mg PO DAILY 04/20/20 11/01/20 10/31/20 09:00 History amLODIPine 10 mg PO DAILY 06/09/20 11/01/20 10/31/20 09:00 History AtorvaSTATin 40 mg PO HS 11/01/20 11/01/20 10/31/20 21:00 History Benadryl 25 mg PO HS 11/01/20 11/01/20 10/31/20 21:00 History Diclofenac 1 TRANSDERMA QID 11/01/20 10/31/20 19:00 History Fluticasone Propionate 1 spray INTRANASAL DAILY 11/01/20 11/01/20 10/31/20 09:00 History Vitamin D3 2,000 units 11/01/20 10/31/20 09:00 History carvediloL 12.5 mg PO DAILY 11/01/20 11/01/20 10/31/20 09:00 History hydrALAZINE 100 mg PO TID 11/01/20 11/01/20 10/31/20 19:00 History Active Medications: Generic Name Dose Route Start Last Admin Trade Name Freq PRN Reason Stop Dose Admin Acetaminophen 650 mg 12/31/20 15:30 12/31/20 15:13 Acetaminophen 650 Mg Rect Supp [place] 650 mg Q6H PRN Administration Non Cardiac Pain or Temp>100.5 Albuterol 2.5 mg 12/22/20 19:42 Albuterol 2.5 Mg/3 Ml Nebu IH Q4HRT PRN Shortness Of Breath Digoxin 0.125 mg 12/31/20 10:00 01/02/21 09:30 Digoxin 0.5 Mg/2 Ml Inj IV Not Given Q48HR THOMAS Famotidine 10 mg 12/24/20 13:00 01/02/21 21:37 Famotidine 20 Mg/2 Ml Inj IV 10 mg BID THOMAS Administration Fentanyl 50 mcg 12/24/20 11:35 01/01/21 11:28 Fentanyl 100 Mcg/2 Ml Inj IV 50 mcg Q10MIN PRN Administration ANALGESIA Haloperidol Lactate 5 mg 12/29/20 14:16 12/31/20 00:19 Haloperidol Lactate 5 Mg/1 Ml Inj IV 5 mg Q12H PRN Administration Agitation Heparin Sodium (Porcine) 5,000 unit 12/24/20 10:00 01/03/21 10:14 Heparin 5,000 Unit/1 Ml Vial SUB-Q Not Given Q12HR THOMAS Hydralazine HCl 10 mg 12/30/20 12:00 01/03/21 10:15 Hydralazine 20 Mg/1 Ml Inj IV Not Given Q4HR [facility] Hydrophilic Ointment 1 applic 12/31/20 06:39 Lip Therapy Vaseline TP Q2HR PRN Dry Lips Sodium Chloride 100 mls @ 999 mls/hr 12/23/20 11:03 Nacl 0.9% IV [place] PRN Hypotension Propofol 1,000 mg in 100 mls @ 5.484 mls/hr 12/23/20 19:00 01/02/21 17:36 Diprivan 10 Mg/Ml IV 0 mcg/kg/min TITR THOMAS 0 mls/hr Titration Protocol 10 MCG/KG/MIN Fluconazole 200 mg in 100 mls @ 100 mls/hr 12/27/20 13:00 01/02/21 13:43 Diflucan IV 100 mls/hr Q24H THOMAS Administration Protocol Fentanyl Citrate 2,000 mcg in 100 mls @ 4.725 mls/hr 12/31/20 08:00 01/03/21 10:26 Fentanyl Drip Premix IV 2 mcg/kg/hr TITR THOMAS 9.45 mls/hr Administration Protocol 1 MCG/KG/HR NORepinephrine/NS 8 MG-250 ML 8 mg in 250 mls @ 3.75 mls/hr 12/31/20 09:00 01/03/21 08:30 Norepinephrine/Ns 8 Mg-250 Ml (Double Conc) IV 0 mcg/min TITRATE THOMAS 0 mls/hr Titration Protocol 2 MCG/MIN Piperacillin Sod/Tazobactam Sod 2.25 gm in 50 mls @ 100 mls/hr 12/31/20 12:00 01/03/21 04:35 Zosyn/Ns 2.25 Gm/50ml IV 01/06/21 20:29 100 mls/hr Q8H THOMAS Administration Protocol Vasopressin 20 unit/ Sodium 101 mls @ 9.09 mls/hr 12/31/20 21:00 01/02/21 21:13 Chloride IV 0 units/min TITR THOMAS 0 mls/hr Titration Protocol 0.03 UNITS/MIN Phenylephrine HCl 100 mg/ 100 mls @ 3 mls/hr 12/31/20 23:45 01/01/21 18:30 Sodium Chloride IV 0 mcg/min TITR THOMAS 0 mls/hr Titration Protocol 50 MCG/MIN Amino Acids/Electrolytes/Dextrose 2,016 mls @ 84 mls/hr 01/02/21 20:00 01/02/21 20:46 Tpn Adult IV 01/03/21 19:59 84 mls/hr DAILY@2000 THOMAS Administration Protocol Sodium Chloride 500 mls @ 0 mls/hr 01/03/21 08:49 Nacl 0.9% 500 Ml IV 01/03/21 23:59 ONCE NR As Directed Insulin Glargine 10 units 01/03/21 10:00 01/03/21 10:16 Insulin Glargine 100 Units/Ml SUB-Q 10 units DAILY THOMAS Administration Insulin Human Lispro 0 unit 01/03/21 12:00 Insulin Lispro 100 Unit/Ml SUB-Q Q6HR [facility] Protocol Metoprolol Tartrate 5 mg 12/30/20 12:00 01/03/21 06:32 Metoprolol Tartrate 5 Mg/5 Ml Inj IV Not Given Q4HR [facility] Multi-Ingred Cream/Lotion/Oil/Oint 1 applic 12/31/20 06:39 Mineral Oil/Petrolatum, White Ophth Oint 3.5 Gm OU Q4HR PRN Dry Eye(s) Sodium Chloride 10 ml 12/22/20 22:00 01/03/21 10:16 Sodium Chloride 0.9% 10 Ml Flush Syringe IV 10 ml BID THOMAS Administration Sodium Chloride 10 ml 12/22/20 19:42 Sodium Chloride 0.9% 10 Ml Flush Syringe IV PRN PRN LINE FLUSH
--- NOTE | 2021-01-03 11:38 | Progress Note ---
Assessment and Plan New onset atrial fibrillation currently, he is sinus rhythm on telemetry Hx of nonischemic cardiomyopathy, resolving LVEF 50-55% by echo this presentation Small bowl obstruction status post expiratory laparotomy status post emergency exploratory laparotomy for anastomotic leak ESRD on PD Anemia s/p PRBCs Continue intravenous digoxin, and intravenous metoprolol for paroxysmal atrial fibrillation. Patient is not a candidate for anticoagulation at this time due to his postoperative status and the presence of severe anemia. Subjective Date of service: 01/03/21 Principal diagnosis: Ac hypoxemic resp failure; Severe Sepsis; Peritonitis; Acute SBO; ESRD; CHF Interval history: Patient is unresponsive on the ventilator. Currently, he is sinus rhythm on telemetry. Objective Vital Signs Temp Pulse Pulse Resp BP Pulse Ox Pulse Ox 01/03/21 11:01 81 17 129/63 97 01/03/21 10:31 83 18 130/61 97 01/03/21 10:01 84 17 126/64 96 01/03/21 09:31 85 18 130/66 98 01/03/21 09:01 83 18 131/63 97 01/03/21 08:31 83 18 130/63 97 01/03/21 08:05 86 125/62 97 01/03/21 08:01 84 18 125/62 95 01/03/21 08:00 90 87 20 100 01/03/21 07:31 82 18 135/64 96 01/03/21 07:01 80 14 143/64 98 01/03/21 06:31 80 18 136/66 96 01/03/21 06:01 81 15 135/65 97 01/03/21 05:31 83 18 126/63 96 01/03/21 05:00 87 18 120/62 95 01/03/21 04:31 79 16 137/66 94 01/03/21 04:01 87 20 133/68 96 01/03/21 04:00 97.6 F 86 87 20 113/59 100 01/03/21 03:31 83 20 136/63 96 01/03/21 03:01 83 17 131/64 97 01/03/21 02:31 87 25 H 129/65 94 01/03/21 02:01 88 18 130/66 96 01/03/21 01:31 88 16 126/64 95 01/03/21 01:01 89 20 104/65 96 01/03/21 00:30 92 H 16 100/61 96 01/03/21 00:00 94 H 94 H 21 122/62 100 01/02/21 23:55 96 H 23 122/62 100 01/02/21 23:41 99.4 F 01/02/21 23:39 92 H 130/61 96 01/02/21 23:31 100 H 22 118/62 91 01/02/21 23:01 88 21 123/56 90 01/02/21 22:31 89 20 121/61 93 01/02/21 22:01 92 H 20 130/61 90 01/02/21 21:31 88 19 128/60 90 01/02/21 21:01 86 18 121/56 94 01/02/21 20:41 86 138/68 95 01/02/21 20:31 87 20 125/60 92 01/02/21 20:01 87 20 126/59 96 01/02/21 20:00 98.9 F 87 87 20 96 01/02/21 19:31 85 18 116/58 96 01/02/21 19:01 87 16 119/58 96 01/02/21 18:31 88 18 108/55 95 01/02/21 18:00 89 18 117/60 94 01/02/21 17:31 90 18 132/65 94 01/02/21 17:01 87 19 135/67 93 01/02/21 16:59 98.8 F 88 20 118/58 94 01/02/21 16:44 90 96 01/02/21 16:31 82 17 144/70 96 01/02/21 16:01 82 17 134/68 97 01/02/21 16:00 98.4 F 86 82 17 97 01/02/21 15:31 88 17 138/66 96 01/02/21 15:01 83 17 144/66 96 01/02/21 14:31 83 18 133/64 97 01/02/21 14:01 82 17 136/65 97 01/02/21 13:31 93 H 17 107/61 96 01/02/21 13:30 98.8 F 92 H 18 107/61 96 01/02/21 13:17 89 143/59 01/02/21 13:01 91 H 21 111/62 96 01/02/21 13:00 91 H 111/62 01/02/21 12:45 91 H 126/64 01/02/21 12:31 93 H 17 106/62 97 01/02/21 12:30 92 H 106/62 01/02/21 12:16 95 H 127/60 98 01/02/21 12:15 91 H 127/60 01/02/21 12:01 93 H 17 118/64 97 01/02/21 12:00 98.6 F 92 H 93 H 18 118/64 97 01/02/21 11:45 90 138/67 - Physical Examination General: Other (on the vent) Cardiac: Positive: Reg Rate and Rhythm - Labs and Meds CBC 01/03/21 Range/Units 04:37 WBC 15.2 H (4.5-11.0) K/mm3 RBC 2.38 L (3.65-5.03) M/mm3 Hgb 7.3 L (11.8-15.2) gm/dl Hct 21.6 L (35.5-45.6) % Plt Count 207 (140-440) K/mm3 Comprehensive Metabolic Panel 01/02/21 01/03/21 Range/Units 15:00 04:37 Sodium 136 L (137-145) mmol/L Potassium 4.0 D (3.6-5.0) mmol/L Chloride 94.5 L (98-107) mmol/L Carbon Dioxide 28 (22-30) mmol/L BUN 69 H (9-20) mg/dL Creatinine 8.0 H (0.8-1.3) mg/dL Glucose 241 H 219 H (75-100) mg/dL Calcium 7.8 L (8.4-10.2) mg/dL - Allied health notes Allied health notes reviewed: nursing
--- NOTE | 2021-01-03 12:21 | Progress Note ---
Assessment and Plan Acute hypoxemic respiratory failure, on mechanical ventilatory support. Severe Sepsis Peritonitis Acute small-bowel obstruction with tissue necrosis. End-stage renal disease, on dialysis. Hypertension. Crohn's disease. Gastroesophageal reflux disease. Heart failure with reduced ejection fraction. Hyperkalemia. Anemia that is normocytic. Lactic acidosis. Oropharyngeal dysphagia - for OR today - reduced set rate to 14/min - lactate WNL - continue total parenteral nutrition - wean vasopressors for target MAP > 65 mmHg - continue wound care per RN/WCN - continue care as below otherwise; - continue Daily SAT and SBT assessment as tolerated - continue to wean supplemental oxygen for target O2 sat's > 92% acutely - VAP bundle addressed - continue lung protective strategies - continue bronchodilators with pulmonary hygiene per RT - wean per pulmonary driven protocols otherwise - HD/UF per nephrology prescription for toxin and volume control - avoid nephrotoxins, renally dose all medications - continue accuchecks with glycemic control per SSI (While critically ill target blood glucose of 140-180 mg/dL; avoid hypoglycemia) - sedation prn for target RASS 0 to -1 - continue to avoid benzodiazepine's, reduce the possibility of delirium - complete AB's per ID rec's - prn analgesia per CPOT score - Maintenance of sleep-wake cycle, avoid delirium - enteral nutritional support at goal rate as tolerated (once cleared by surgeon) - G.I. & VTE prophylaxis - PT/OT/ROM exercises - continue mobility protocols for pressure ulcer prophylaxis - Monitor hemodynamics closely - continue other care per attending / other consultants - discharge planning ongoing concurrently .... Re-evaluate in am & prn CONDITION: CRITICAL PROGNOSIS: GUARDED CODE STATUS: FULL CODE The high probability of a clinically significant, sudden or life-threatening deterioration of the [respiratory, cardiovascular, GI & neurologic] system(s) required my full and direct attention, intervention and personal management. The aggregate critical care time was [36] minutes without overlap. Time includes spent on; [x] Data Review and interpretation [x] Patient assessment and monitoring of vital signs [x] Documentation [x] Medication orders and management Subjective Date of service: 01/03/21 Principal diagnosis: Ac hypoxemic resp failure; Severe Sepsis; Peritonitis; Acute SBO; ESRD; CHF Interval history: Patient is seen today for: Ac hypoxemic resp failure; Severe Sepsis; Peritonitis; Acute SBO; ESRD on Dialysis; HTN; Crohn's disease; HFrEF Seen and examined at bedside; 24hour events reviewed; nursing and respiratory care staff consulted; no adverse overnight events reported to me; resting in bed; alert; denies [id number] pain; tentatively to go to OR for abdominal wash-out today; weaning off vasopressors; no emesis or overt aspiration and remains on MVS Objective Vital Signs - 12hr 01/03/21 01/03/21 01/03/21 00:30 01:01 01:31 Temperature Pulse Rate 92 H 89 88 Pulse Rate [ From Monitor] Respiratory 16 20 16 Rate Blood Pressure 100/61 104/65 126/64 O2 Sat by Pulse 96 96 95 Oximetry 01/03/21 01/03/21 01/03/21 02:01 02:31 03:01 Temperature Pulse Rate 88 87 83 Pulse Rate [ From Monitor] Respiratory 18 25 H 17 Rate Blood Pressure 130/66 129/65 131/64 O2 Sat by Pulse 96 94 97 Oximetry 01/03/21 01/03/21 01/03/21 03:31 04:00 04:01 Temperature 97.6 F Pulse Rate 83 86 87 Pulse Rate [ 87 From Monitor] Respiratory 20 20 20 Rate Blood Pressure 136/63 113/59 133/68 O2 Sat by Pulse 96 100 96 Oximetry 01/03/21 01/03/21 01/03/21 04:31 05:00 05:31 Temperature Pulse Rate 79 87 83 Pulse Rate [ From Monitor] Respiratory 16 18 18 Rate Blood Pressure 137/66 120/62 126/63 O2 Sat by Pulse 94 95 96 Oximetry 01/03/21 01/03/21 01/03/21 06:01 06:31 07:01 Temperature Pulse Rate 81 80 80 Pulse Rate [ From Monitor] Respiratory 15 18 14 Rate Blood Pressure 135/65 136/66 143/64 O2 Sat by Pulse 97 96 98 Oximetry 01/03/21 01/03/21 01/03/21 07:31 08:00 08:01 Temperature Pulse Rate 82 90 84 Pulse Rate [ 87 From Monitor] Respiratory 18 20 18 Rate Blood Pressure 135/64 125/62 O2 Sat by Pulse 96 100 95 Oximetry 01/03/21 01/03/21 01/03/21 08:05 08:31 09:01 Temperature Pulse Rate 86 83 83 Pulse Rate [ From Monitor] Respiratory 18 18 Rate Blood Pressure 125/62 130/63 131/63 O2 Sat by Pulse 97 97 97 Oximetry 01/03/21 01/03/21 01/03/21 09:31 10:01 10:31 Temperature Pulse Rate 85 84 83 Pulse Rate [ From Monitor] Respiratory 18 17 18 Rate Blood Pressure 130/66 126/64 130/61 O2 Sat by Pulse 98 96 97 Oximetry 01/03/21 01/03/21 11:01 11:36 Temperature Pulse Rate 81 84 Pulse Rate [ From Monitor] Respiratory 17 Rate Blood Pressure 129/63 137/67 O2 Sat by Pulse 97 96 Oximetry Constitutional: no acute distress, other (elderly male riding set rate on MVS) Eyes: non-icteric ENT: oropharynx moist, other (ETT 24 cm LEEANN) Neck: supple, no lymphadenopathy, no JVD Effort: normal Ascultation: Bilateral: diminished breath sounds, rhonchi (scant, bases) Percussion: Bilateral: not dull Cardiovascular: regular rate and rhythm Gastrointestinal: hypoactive bowel sounds, soft, non-tender, non-distended (protuberant), other (Midline abdominal incision with wound-vac in place) Integumentary: other (Midline abdominal incision with wound-vac in place) Extremities: no cyanosis, no edema, pulses normal, no ischemia or petechiae Neurologic: non-focal exam (grossly), pupils equal and round, CN II-XII normal, motor strength normal and (sedated) Psychiatric: mood appropriate, affect normal CBC and BMP: 01/03/21 04:37 01/03/21 04:37 ABG, PT/INR, D-dimer: ABG ABG pH 7.384 (7.320-7.450) 01/03/21 03:45 POC ABG pCO2 48.3 mmHg (32.0-48.0) H 01/03/21 03:45 ABG pCO2 33.9 mm Hg 12/31/20 09:38 POC ABG pO2 79.7 mmHg (83-108) L 01/03/21 03:45 ABG pO2 354.0 mm Hg (80.0-90.0) H 12/31/20 09:38 POC ABG HCO3 28.2 01/03/21 03:45 ABG O2 Saturation 95.6 (0-100) 01/03/21 03:45 PT/INR, D-dimer PT 16.9 Sec. (12.2-14.9) H 01/01/21 12:45 INR 1.39 (0.87-1.13) H 01/01/21 12:45 Abnormal lab findings: Abnormal Labs 12/22/20 12/22/20 12/22/20 14:38 14:38 14:38 WBC RBC Hgb 11.2 L Hct 35.0 L MCV MCHC RDW 16.7 H Plt Count Lymph % (Auto) [place] % (Auto) Lymph # (Auto) Seg Neutrophils % Seg Neuts % (Manual) 94.0 H Lymphocytes % (Manual) 5.0 L Monocytes % (Manual) Seg Neutrophils # Man Lymphocytes # (Manual) 0.3 L Monocytes # (Manual) PT INR ABG pH POC ABG pCO2 POC ABG pO2 ABG pO2 ABG HCO3 ABG O2 Saturation ABG Base Excess ABG Hemoglobin ABG Oxyhemoglobin ABG Sodium ABG Potassium ABG Chloride ABG Glucose Oxyhemoglobin Sodium Potassium Chloride Carbon Dioxide BUN 58 H Creatinine 13.2 H Glucose 113 H POC Glucose Lactic Acid 3.60 H* Calcium Phosphorus Magnesium Total Bilirubin 1.30 H AST ALT Alkaline Phosphatase 155 H Total Protein Albumin Triglycerides Arterial Blood Glucose Arterial Blood Ionized Calcium Crossmatch 12/22/20 12/22/20 12/23/20 16:26 17:47 05:22 WBC RBC Hgb Hct MCV MCHC RDW Plt Count Lymph % (Auto) [place] % (Auto) Lymph # (Auto) Seg Neutrophils % Seg Neuts % (Manual) Lymphocytes % (Manual) Monocytes % (Manual) Seg Neutrophils # Man Lymphocytes # (Manual) Monocytes # (Manual) PT INR ABG pH POC ABG pCO2 POC ABG pO2 ABG pO2 ABG HCO3 ABG O2 Saturation ABG Base Excess ABG Hemoglobin ABG Oxyhemoglobin ABG Sodium ABG Potassium ABG Chloride ABG Glucose Oxyhemoglobin Sodium Potassium Chloride Carbon Dioxide BUN Creatinine Glucose POC Glucose Lactic Acid 2.80 H* 3.10 H* 2.30 H* Calcium Phosphorus Magnesium Total Bilirubin AST ALT Alkaline Phosphatase Total Protein Albumin Triglycerides Arterial Blood Glucose Arterial Blood Ionized Calcium Crossmatch 12/23/20 12/23/20 12/23/20 05:22 05:22 06:35 WBC 12.1 H RBC Hgb 11.0 L Hct 33.7 L MCV MCHC RDW 16.9 H Plt Count Lymph % (Auto) [place] % (Auto) Lymph # (Auto) Seg Neutrophils % Seg Neuts % (Manual) 93.0 H Lymphocytes % (Manual) 1.0 L Monocytes % (Manual) Seg Neutrophils # Man 11.3 H Lymphocytes # (Manual) 0.1 L Monocytes # (Manual) PT INR ABG pH POC ABG pCO2 POC ABG pO2 ABG pO2 ABG HCO3 ABG O2 Saturation ABG Base Excess ABG Hemoglobin ABG Oxyhemoglobin ABG Sodium ABG Potassium ABG Chloride ABG Glucose Oxyhemoglobin Sodium Potassium 5.7 H D Chloride Carbon Dioxide BUN 73 H Creatinine 14.2 H Glucose POC Glucose Lactic Acid 2.30 H* Calcium 7.9 L Phosphorus Magnesium Total Bilirubin 1.40 H AST 119 H ALT 130 H Alkaline Phosphatase 183 H Total Protein 6.1 L Albumin 3.6 L Triglycerides Arterial Blood Glucose Arterial Blood Ionized Calcium Crossmatch 12/23/20 12/23/20 12/23/20 11:40 13:53 16:47 WBC RBC Hgb 10.0 L Hct 30.4 L MCV MCHC RDW Plt Count Lymph % (Auto) [place] % (Auto) Lymph # (Auto) Seg Neutrophils % Seg Neuts % (Manual) Lymphocytes % (Manual) Monocytes % (Manual) Seg Neutrophils # Man Lymphocytes # (Manual) Monocytes # (Manual) PT INR ABG pH POC ABG pCO2 POC ABG pO2 137.5 H ABG pO2 ABG HCO3 ABG O2 Saturation ABG Base Excess ABG Hemoglobin 9.7 L ABG Oxyhemoglobin ABG Sodium 134.1 L ABG Potassium 6.6 H ABG Chloride ABG Glucose 103 H Oxyhemoglobin Sodium Potassium Chloride Carbon Dioxide BUN Creatinine Glucose POC Glucose Lactic Acid Calcium Phosphorus Magnesium Total Bilirubin AST ALT Alkaline Phosphatase Total Protein Albumin Triglycerides Arterial Blood Glucose 103 H Arterial Blood Ionized Calcium 3.8 L Crossmatch See Detail 12/23/20 12/23/20 12/24/20 20:35 20:40 01:20 WBC RBC Hgb Hct MCV MCHC RDW Plt Count Lymph % (Auto) [place] % (Auto) Lymph # (Auto) Seg Neutrophils % Seg Neuts % (Manual) Lymphocytes % (Manual) Monocytes % (Manual) Seg Neutrophils # Man Lymphocytes # (Manual) Monocytes # (Manual) PT INR ABG pH 7.252 L POC ABG pCO2 POC ABG pO2 ABG pO2 50.1 L ABG HCO3 ABG O2 Saturation 81.1 L ABG Base Excess -5.9 L ABG Hemoglobin 12.1 L ABG Oxyhemoglobin ABG Sodium ABG Potassium ABG Chloride ABG Glucose Oxyhemoglobin 78.6 L Sodium 134 L Potassium 6.9 H* D 6.3 H* Chloride Carbon Dioxide 18 L 20 L BUN 87 H 91 H Creatinine 15.3 H 15.3 H Glucose 103 H POC Glucose Lactic Acid Calcium 6.9 L 7.5 L Phosphorus Magnesium Total Bilirubin AST ALT Alkaline Phosphatase Total Protein Albumin Triglycerides Arterial Blood Glucose Arterial Blood Ionized Calcium Crossmatch 12/24/20 12/24/20 12/24/20 04:00 10:29 10:29 WBC RBC 3.49 L Hgb 10.5 L Hct 31.2 L MCV MCHC RDW 17.5 H Plt Count 124 L Lymph % (Auto) 3.7 L [place] % (Auto) 9.8 H Lymph # (Auto) 0.2 L Seg Neutrophils % 85.9 H Seg Neuts % (Manual) Lymphocytes % (Manual) Monocytes % (Manual) Seg Neutrophils # Man Lymphocytes # (Manual) Monocytes # (Manual) PT INR ABG pH POC ABG pCO2 28.1 L POC ABG pO2 ABG pO2 ABG HCO3 ABG O2 Saturation ABG Base Excess ABG Hemoglobin ABG Oxyhemoglobin ABG Sodium 133.9 L ABG Potassium 5.3 H ABG Chloride 108.0 H ABG Glucose Oxyhemoglobin Sodium Potassium 5.6 H Chloride Carbon Dioxide 19 L BUN 99 H Creatinine 16.9 H Glucose 52 L POC Glucose Lactic Acid Calcium 7.6 L Phosphorus Magnesium Total Bilirubin 3.50 H AST 67 H ALT 71 H Alkaline Phosphatase Total Protein 3.5 L D Albumin 2.1 L Triglycerides Arterial Blood Glucose Arterial Blood Ionized Calcium 4.0 L Crossmatch 12/25/20 12/25/20 12/25/20 03:33 04:00 04:00 WBC 3.8 L RBC 2.90 L Hgb 8.6 L Hct 25.7 L MCV MCHC RDW 16.7 H Plt Count 113 L Lymph % (Auto) [place] % (Auto) Lymph # (Auto) Seg Neutrophils % Seg Neuts % (Manual) Lymphocytes % (Manual) Monocytes % (Manual) Seg Neutrophils # Man Lymphocytes # (Manual) Monocytes # (Manual) PT INR ABG pH 7.544 H POC ABG pCO2 28.2 L POC ABG pO2 62.8 L ABG pO2 ABG HCO3 ABG O2 Saturation ABG Base Excess ABG Hemoglobin 9.3 L ABG Oxyhemoglobin 93.0 L ABG Sodium 130.3 L ABG Potassium ABG Chloride ABG Glucose 97 H Oxyhemoglobin Sodium Potassium Chloride Carbon Dioxide BUN 62 H Creatinine 11.4 H Glucose POC Glucose Lactic Acid Calcium 7.7 L Phosphorus 5.00 H Magnesium Total Bilirubin AST ALT Alkaline Phosphatase Total Protein Albumin Triglycerides Arterial Blood Glucose 97 H Arterial Blood Ionized Calcium 3.9 L Crossmatch 12/26/20 12/26/20 12/27/20 04:46 Unknown 03:40 WBC 4.1 L RBC 2.61 L Hgb 7.8 L Hct 23.4 L MCV MCHC RDW 17.1 H Plt Count 119 L Lymph % (Auto) 5.3 L [place] % (Auto) 10.6 H Lymph # (Auto) 0.2 L Seg Neutrophils % 78.8 H Seg Neuts % (Manual) Lymphocytes % (Manual) Monocytes % (Manual) Seg Neutrophils # Man Lymphocytes # (Manual) Monocytes # (Manual) PT INR ABG pH 7.333 L 7.332 L POC ABG pCO2 POC ABG pO2 ABG pO2 ABG HCO3 26.9 H ABG O2 Saturation ABG Base Excess -2.4 L ABG Hemoglobin 6.8 L 7.2 L ABG Oxyhemoglobin ABG Sodium ABG Potassium ABG Chloride ABG Glucose Oxyhemoglobin 93.0 L 93.1 L Sodium Potassium Chloride Carbon Dioxide BUN Creatinine Glucose POC Glucose Lactic Acid Calcium Phosphorus Magnesium Total Bilirubin AST ALT Alkaline Phosphatase Total Protein Albumin Triglycerides Arterial Blood Glucose Arterial Blood Ionized Calcium Crossmatch 12/27/20 12/27/20 12/27/20 06:40 06:40 11:22 WBC 4.4 L RBC 2.49 L Hgb 7.4 L Hct 22.4 L MCV MCHC RDW 17.1 H Plt Count 111 L Lymph % (Auto) 6.7 L [place] % (Auto) 12.6 H Lymph # (Auto) 0.3 L Seg Neutrophils % 77.6 H Seg Neuts % (Manual) Lymphocytes % (Manual) Monocytes % (Manual) Seg Neutrophils # Man Lymphocytes # (Manual) Monocytes # (Manual) PT INR ABG pH POC ABG pCO2 POC ABG pO2 ABG pO2 ABG HCO3 ABG O2 Saturation ABG Base Excess ABG Hemoglobin ABG Oxyhemoglobin ABG Sodium ABG Potassium ABG Chloride ABG Glucose Oxyhemoglobin Sodium Potassium Chloride Carbon Dioxide BUN 64 H Creatinine 9.8 H Glucose 147 H POC Glucose 134 H Lactic Acid Calcium 8.3 L Phosphorus 5.00 H Magnesium Total Bilirubin 3.70 H AST 72 H ALT Alkaline Phosphatase 142 H Total Protein 5.1 L D Albumin 2.9 L Triglycerides Arterial Blood Glucose Arterial Blood Ionized Calcium Crossmatch 12/27/20 12/27/20 12/28/20 17:29 23:31 03:09 WBC RBC Hgb Hct MCV MCHC RDW Plt Count Lymph % (Auto) [place] % (Auto) Lymph # (Auto) Seg Neutrophils % Seg Neuts % (Manual) Lymphocytes % (Manual) Monocytes % (Manual) Seg Neutrophils # Man Lymphocytes # (Manual) Monocytes # (Manual) PT INR ABG pH 7.474 H POC ABG pCO2 POC ABG pO2 ABG pO2 ABG HCO3 ABG O2 Saturation ABG Base Excess ABG Hemoglobin 7.8 L ABG Oxyhemoglobin ABG Sodium ABG Potassium ABG Chloride ABG Glucose Oxyhemoglobin Sodium Potassium Chloride Carbon Dioxide BUN Creatinine Glucose POC Glucose 121 H 131 H Lactic Acid Calcium Phosphorus Magnesium Total Bilirubin AST ALT Alkaline Phosphatase Total Protein Albumin Triglycerides Arterial Blood Glucose Arterial Blood Ionized Calcium Crossmatch 12/28/20 12/28/20 12/28/20 05:37 05:40 05:40 WBC 4.3 L RBC 2.40 L Hgb 7.2 L Hct 21.5 L MCV MCHC RDW 17.4 H Plt Count 112 L Lymph % (Auto) 6.5 L [place] % (Auto) 16.7 H Lymph # (Auto) 0.3 L Seg Neutrophils % 71.1 H Seg Neuts % (Manual) Lymphocytes % (Manual) Monocytes % (Manual) Seg Neutrophils # Man Lymphocytes # (Manual) Monocytes # (Manual) PT INR ABG pH POC ABG pCO2 POC ABG pO2 ABG pO2 ABG HCO3 ABG O2 Saturation ABG Base Excess ABG Hemoglobin ABG Oxyhemoglobin ABG Sodium ABG Potassium ABG Chloride ABG Glucose Oxyhemoglobin Sodium Potassium Chloride Carbon Dioxide BUN 85 H Creatinine 11.5 H Glucose 132 H POC Glucose 121 H Lactic Acid Calcium 8.2 L Phosphorus Magnesium 2.40 H Total Bilirubin 3.80 H AST 70 H ALT Alkaline Phosphatase 176 H Total Protein 5.0 L Albumin 2.9 L Triglycerides Arterial Blood Glucose Arterial Blood Ionized Calcium Crossmatch 12/28/20 12/28/20 12/28/20 11:34 15:00 17:35 WBC RBC Hgb Hct MCV MCHC RDW Plt Count Lymph % (Auto) [place] % (Auto) Lymph # (Auto) Seg Neutrophils % Seg Neuts % (Manual) Lymphocytes % (Manual) Monocytes % (Manual) Seg Neutrophils # Man Lymphocytes # (Manual) Monocytes # (Manual) PT INR ABG pH 7.461 H POC ABG pCO2 POC ABG pO2 72.2 L ABG pO2 ABG HCO3 ABG O2 Saturation ABG Base Excess ABG Hemoglobin 8.2 L ABG Oxyhemoglobin 93.6 L ABG Sodium 134.1 L ABG Potassium 3.2 L ABG Chloride ABG Glucose 135 H Oxyhemoglobin Sodium Potassium Chloride Carbon Dioxide BUN Creatinine Glucose POC Glucose 137 H 144 H Lactic Acid Calcium Phosphorus Magnesium Total Bilirubin AST ALT Alkaline Phosphatase Total Protein Albumin Triglycerides Arterial Blood Glucose 135 H Arterial Blood Ionized Calcium 4.4 L Crossmatch 12/28/20 12/28/20 12/29/20 19:44 Unknown 00:21 WBC RBC Hgb Hct MCV MCHC RDW Plt Count Lymph % (Auto) [place] % (Auto) Lymph # (Auto) Seg Neutrophils % Seg Neuts % (Manual) Lymphocytes % (Manual) Monocytes % (Manual) Seg Neutrophils # Man Lymphocytes # (Manual) Monocytes # (Manual) PT INR ABG pH 7.474 H POC ABG pCO2 POC ABG pO2 ABG pO2 ABG HCO3 ABG O2 Saturation ABG Base Excess ABG Hemoglobin 7.8 L ABG Oxyhemoglobin ABG Sodium 133.2 L ABG Potassium ABG Chloride ABG Glucose 139 H Oxyhemoglobin Sodium 135 L Potassium Chloride 96.6 L Carbon Dioxide BUN 47 H Creatinine 7.4 H Glucose 130 H POC Glucose 142 H Lactic Acid Calcium 8.3 L Phosphorus Magnesium Total Bilirubin AST ALT Alkaline Phosphatase Total Protein Albumin Triglycerides Arterial Blood Glucose 139 H Arterial Blood Ionized Calcium 4.3 L Crossmatch 12/29/20 12/29/20 12/29/20 05:16 05:16 05:26 WBC RBC 2.53 L Hgb 7.7 L Hct 22.8 L MCV MCHC RDW 17.0 H Plt Count 130 L Lymph % (Auto) [place] % (Auto) Lymph # (Auto) Seg Neutrophils % Seg Neuts % (Manual) 79.0 H Lymphocytes % (Manual) 9.0 L Monocytes % (Manual) Seg Neutrophils # Man Lymphocytes # (Manual) 0.6 L Monocytes # (Manual) PT INR ABG pH POC ABG pCO2 POC ABG pO2 ABG pO2 ABG HCO3 ABG O2 Saturation ABG Base Excess ABG Hemoglobin ABG Oxyhemoglobin ABG Sodium ABG Potassium ABG Chloride ABG Glucose Oxyhemoglobin Sodium Potassium 3.4 L Chloride 96.6 L Carbon Dioxide BUN 59 H Creatinine 8.3 H Glucose 127 H POC Glucose 141 H Lactic Acid Calcium 8.2 L Phosphorus Magnesium Total Bilirubin 3.00 H AST 88 H ALT Alkaline Phosphatase 188 H Total Protein 5.1 L Albumin 2.8 L Triglycerides Arterial Blood Glucose Arterial Blood Ionized Calcium Crossmatch 12/29/20 12/29/20 12/29/20 11:33 17:29 23:22 WBC RBC Hgb Hct MCV MCHC RDW Plt Count Lymph % (Auto) [place] % (Auto) Lymph # (Auto) Seg Neutrophils % Seg Neuts % (Manual) Lymphocytes % (Manual) Monocytes % (Manual) Seg Neutrophils # Man Lymphocytes # (Manual) Monocytes # (Manual) PT INR ABG pH POC ABG pCO2 POC ABG pO2 ABG pO2 ABG HCO3 ABG O2 Saturation ABG Base Excess ABG Hemoglobin ABG Oxyhemoglobin ABG Sodium ABG Potassium ABG Chloride ABG Glucose Oxyhemoglobin Sodium Potassium Chloride Carbon Dioxide BUN Creatinine Glucose POC Glucose 144 H 130 H 117 H Lactic Acid Calcium Phosphorus Magnesium Total Bilirubin AST ALT Alkaline Phosphatase Total Protein Albumin Triglycerides Arterial Blood Glucose Arterial Blood Ionized Calcium Crossmatch 12/30/20 12/30/20 12/30/20 05:23 08:15 09:00 WBC RBC Hgb Hct MCV MCHC RDW Plt Count Lymph % (Auto) [place] % (Auto) Lymph # (Auto) Seg Neutrophils % Seg Neuts % (Manual) Lymphocytes % (Manual) Monocytes % (Manual) Seg Neutrophils # Man Lymphocytes # (Manual) Monocytes # (Manual) PT INR ABG pH POC ABG pCO2 POC ABG pO2 ABG pO2 ABG HCO3 ABG O2 Saturation ABG Base Excess ABG Hemoglobin ABG Oxyhemoglobin ABG Sodium ABG Potassium ABG Chloride ABG Glucose Oxyhemoglobin Sodium 135 L Potassium Chloride 95.9 L Carbon Dioxide BUN 85 H Creatinine 10.6 H Glucose 128 H POC Glucose 135 H 127 H Lactic Acid Calcium 8.3 L Phosphorus Magnesium Total Bilirubin 2.40 H AST 85 H ALT Alkaline Phosphatase 216 H Total Protein 5.3 L Albumin 2.6 L Triglycerides 155 H Arterial Blood Glucose Arterial Blood Ionized Calcium Crossmatch 12/30/20 12/30/20 12/30/20 09:00 11:53 15:49 WBC RBC 2.61 L Hgb 7.8 L Hct 23.7 L MCV MCHC RDW 17.3 H Plt Count Lymph % (Auto) [place] % (Auto) Lymph # (Auto) Seg Neutrophils % Seg Neuts % (Manual) Lymphocytes % (Manual) Monocytes % (Manual) Seg Neutrophils # Man Lymphocytes # (Manual) Monocytes # (Manual) PT INR ABG pH POC ABG pCO2 POC ABG pO2 ABG pO2 ABG HCO3 ABG O2 Saturation ABG Base Excess ABG Hemoglobin ABG Oxyhemoglobin ABG Sodium ABG Potassium ABG Chloride ABG Glucose Oxyhemoglobin Sodium Potassium Chloride Carbon Dioxide BUN Creatinine Glucose POC Glucose 155 H 146 H Lactic Acid Calcium Phosphorus Magnesium Total Bilirubin AST ALT Alkaline Phosphatase Total Protein Albumin Triglycerides Arterial Blood Glucose Arterial Blood Ionized Calcium Crossmatch 12/30/20 12/30/20 12/31/20 17:53 23:45 03:56 WBC RBC Hgb Hct MCV MCHC RDW Plt Count Lymph % (Auto) [place] % (Auto) Lymph # (Auto) Seg Neutrophils % Seg Neuts % (Manual) Lymphocytes % (Manual) Monocytes % (Manual) Seg Neutrophils # Man Lymphocytes # (Manual) Monocytes # (Manual) PT INR ABG pH POC ABG pCO2 POC ABG pO2 49.4 L ABG pO2 ABG HCO3 ABG O2 Saturation ABG Base Excess ABG Hemoglobin 10.3 L ABG Oxyhemoglobin 84.2 L ABG Sodium 133.1 L ABG Potassium ABG Chloride ABG Glucose 173 H Oxyhemoglobin Sodium Potassium Chloride Carbon Dioxide BUN Creatinine Glucose POC Glucose 139 H 173 H Lactic Acid Calcium Phosphorus Magnesium Total Bilirubin AST ALT Alkaline Phosphatase Total Protein Albumin Triglycerides Arterial Blood Glucose 173 H Arterial Blood Ionized Calcium Crossmatch 12/31/20 12/31/20 12/31/20 05:07 06:51 06:51 WBC 20.3 H RBC 3.32 L Hgb 9.8 L Hct 30.3 L D MCV MCHC RDW 17.3 H Plt Count Lymph % (Auto) [place] % (Auto) Lymph # (Auto) Seg Neutrophils % Seg Neuts % (Manual) 87.0 H Lymphocytes % (Manual) 10.0 L Monocytes % (Manual) Seg Neutrophils # Man 17.7 H Lymphocytes # (Manual) Monocytes # (Manual) PT INR ABG pH POC ABG pCO2 POC ABG pO2 ABG pO2 ABG HCO3 ABG O2 Saturation ABG Base Excess ABG Hemoglobin ABG Oxyhemoglobin ABG Sodium ABG Potassium ABG Chloride ABG Glucose Oxyhemoglobin Sodium Potassium 5.2 H D Chloride Carbon Dioxide BUN 62 H Creatinine 8.4 H Glucose 116 H POC Glucose 120 H Lactic Acid Calcium Phosphorus Magnesium 1.60 L Total Bilirubin AST ALT Alkaline Phosphatase Total Protein Albumin Triglycerides Arterial Blood Glucose Arterial Blood Ionized Calcium Crossmatch 12/31/20 12/31/20 12/31/20 09:38 12:19 12:22 WBC RBC Hgb Hct MCV MCHC RDW Plt Count Lymph % (Auto) [place] % (Auto) Lymph # (Auto) Seg Neutrophils % Seg Neuts % (Manual) Lymphocytes % (Manual) Monocytes % (Manual) Seg Neutrophils # Man Lymphocytes # (Manual) Monocytes # (Manual) PT INR ABG pH POC ABG pCO2 POC ABG pO2 ABG pO2 354.0 H ABG HCO3 ABG O2 Saturation 99.6 H ABG Base Excess ABG Hemoglobin 9.1 L ABG Oxyhemoglobin ABG Sodium ABG Potassium ABG Chloride ABG Glucose Oxyhemoglobin Sodium Potassium 5.2 H Chloride Carbon Dioxide BUN Creatinine Glucose POC Glucose 132 H Lactic Acid Calcium Phosphorus Magnesium Total Bilirubin AST ALT Alkaline Phosphatase Total Protein Albumin Triglycerides Arterial Blood Glucose Arterial Blood Ionized Calcium Crossmatch 12/31/20 01/01/21 01/01/21 23:23 03:03 05:04 WBC RBC Hgb Hct MCV MCHC RDW Plt Count Lymph % (Auto) [place] % (Auto) Lymph # (Auto) Seg Neutrophils % Seg Neuts % (Manual) Lymphocytes % (Manual) Monocytes % (Manual) Seg Neutrophils # Man Lymphocytes # (Manual) Monocytes # (Manual) PT INR ABG pH POC ABG pCO2 POC ABG pO2 79.6 L ABG pO2 ABG HCO3 ABG O2 Saturation ABG Base Excess ABG Hemoglobin 9.2 L ABG Oxyhemoglobin ABG Sodium 131.6 L ABG Potassium 5.8 H ABG Chloride ABG Glucose 177 H Oxyhemoglobin Sodium Potassium Chloride Carbon Dioxide BUN Creatinine Glucose POC Glucose 174 H 167 H Lactic Acid Calcium Phosphorus Magnesium Total Bilirubin AST ALT Alkaline Phosphatase Total Protein Albumin Triglycerides Arterial Blood Glucose 177 H Arterial Blood Ionized Calcium Crossmatch 01/01/21 01/01/21 01/01/21 07:31 07:31 11:31 WBC 26.1 H RBC 2.95 L Hgb 8.6 L Hct 27.1 L MCV MCHC RDW 18.2 H Plt Count Lymph % (Auto) [place] % (Auto) Lymph # (Auto) Seg Neutrophils % Seg Neuts % (Manual) 96.0 H Lymphocytes % (Manual) 4.0 L Monocytes % (Manual) Seg Neutrophils # Man 25.1 H Lymphocytes # (Manual) 1.0 L Monocytes # (Manual) PT INR ABG pH POC ABG pCO2 POC ABG pO2 ABG pO2 ABG HCO3 ABG O2 Saturation ABG Base Excess ABG Hemoglobin ABG Oxyhemoglobin ABG Sodium ABG Potassium ABG Chloride ABG Glucose Oxyhemoglobin Sodium Potassium 6.0 H Chloride Carbon Dioxide 21 L BUN 89 H Creatinine 10.5 H Glucose 179 H POC Glucose Lactic Acid Calcium Phosphorus Magnesium Total Bilirubin AST ALT Alkaline Phosphatase Total Protein Albumin Triglycerides Arterial Blood Glucose Arterial Blood Ionized Calcium Crossmatch See Detail 01/01/21 01/01/21 01/01/21 11:51 12:45 16:52 WBC RBC Hgb Hct MCV MCHC RDW Plt Count Lymph % (Auto) [place] % (Auto) Lymph # (Auto) Seg Neutrophils % Seg Neuts % (Manual) Lymphocytes % (Manual) Monocytes % (Manual) Seg Neutrophils # Man Lymphocytes # (Manual) Monocytes # (Manual) PT 16.9 H INR 1.39 H ABG pH POC ABG pCO2 POC ABG pO2 ABG pO2 ABG HCO3 ABG O2 Saturation ABG Base Excess ABG Hemoglobin ABG Oxyhemoglobin ABG Sodium ABG Potassium ABG Chloride ABG Glucose Oxyhemoglobin Sodium Potassium Chloride Carbon Dioxide BUN Creatinine Glucose POC Glucose 157 H 177 H Lactic Acid Calcium Phosphorus Magnesium Total Bilirubin AST ALT Alkaline Phosphatase Total Protein Albumin Triglycerides Arterial Blood Glucose Arterial Blood Ionized Calcium Crossmatch 01/01/21 01/01/21 01/01/21 17:58 17:58 20:12 WBC 26.9 H RBC 3.14 L Hgb 9.3 L Hct 29.6 L MCV MCHC RDW 17.5 H Plt Count Lymph % (Auto) [place] % (Auto) Lymph # (Auto) Seg Neutrophils % Seg Neuts % (Manual) 84.0 H Lymphocytes % (Manual) 4.0 L Monocytes % (Manual) 12.0 H Seg Neutrophils # Man 22.6 H Lymphocytes # (Manual) 1.1 L Monocytes # (Manual) 3.2 H PT INR ABG pH POC ABG pCO2 POC ABG pO2 ABG pO2 ABG HCO3 ABG O2 Saturation ABG Base Excess ABG Hemoglobin ABG Oxyhemoglobin ABG Sodium ABG Potassium ABG Chloride ABG Glucose Oxyhemoglobin Sodium 136 L Potassium 6.2 H* Chloride Carbon Dioxide 21 L BUN 92 H Creatinine 10.8 H Glucose 171 H POC Glucose 288 H Lactic Acid Calcium Phosphorus Magnesium Total Bilirubin 2.10 H AST 223 H ALT 100 H Alkaline Phosphatase 206 H Total Protein 4.8 L Albumin 1.9 L Triglycerides Arterial Blood Glucose Arterial Blood Ionized Calcium Crossmatch 01/02/21 01/02/21 01/02/21 00:12 00:45 03:05 WBC RBC Hgb Hct MCV MCHC RDW Plt Count Lymph % (Auto) [place] % (Auto) Lymph # (Auto) Seg Neutrophils % Seg Neuts % (Manual) Lymphocytes % (Manual) Monocytes % (Manual) Seg Neutrophils # Man Lymphocytes # (Manual) Monocytes # (Manual) PT INR ABG pH POC ABG pCO2 POC ABG pO2 81.8 L ABG pO2 ABG HCO3 ABG O2 Saturation ABG Base Excess ABG Hemoglobin 8.0 L ABG Oxyhemoglobin ABG Sodium 129.8 L ABG Potassium 5.4 H ABG Chloride ABG Glucose 257 H Oxyhemoglobin Sodium 136 L Potassium 5.8 H Chloride 96.6 L Carbon Dioxide BUN 95 H Creatinine 11.2 H Glucose 238 H POC Glucose 223 H Lactic Acid Calcium Phosphorus Magnesium Total Bilirubin AST ALT Alkaline Phosphatase Total Protein Albumin Triglycerides Arterial Blood Glucose 257 H Arterial Blood Ionized Calcium 4.0 L Crossmatch 01/02/21 01/02/21 01/02/21 06:25 08:00 08:00 WBC 17.5 H RBC 2.31 L Hgb 6.7 L Hct 22.1 L D MCV 96 H MCHC 30 L RDW 18.4 H Plt Count Lymph % (Auto) [place] % (Auto) Lymph # (Auto) Seg Neutrophils % Seg Neuts % (Manual) Lymphocytes % (Manual) Monocytes % (Manual) Seg Neutrophils # Man Lymphocytes # (Manual) Monocytes # (Manual) PT INR ABG pH POC ABG pCO2 POC ABG pO2 ABG pO2 ABG HCO3 ABG O2 Saturation ABG Base Excess ABG Hemoglobin ABG Oxyhemoglobin ABG Sodium ABG Potassium ABG Chloride ABG Glucose Oxyhemoglobin Sodium 134 L Potassium 5.3 H Chloride 92.9 L Carbon Dioxide BUN 101 H Creatinine 10.9 H Glucose 560 H* POC Glucose 239 H Lactic Acid Calcium 7.6 L Phosphorus 6.50 H Magnesium Total Bilirubin AST ALT Alkaline Phosphatase Total Protein Albumin Triglycerides Arterial Blood Glucose Arterial Blood Ionized Calcium Crossmatch 01/02/21 01/02/21 01/02/21 11:26 15:00 17:57 WBC RBC Hgb Hct MCV MCHC RDW Plt Count Lymph % (Auto) [place] % (Auto) Lymph # (Auto) Seg Neutrophils % Seg Neuts % (Manual) Lymphocytes % (Manual) Monocytes % (Manual) Seg Neutrophils # Man Lymphocytes # (Manual) Monocytes # (Manual) PT INR ABG pH POC ABG pCO2 POC ABG pO2 ABG pO2 ABG HCO3 ABG O2 Saturation ABG Base Excess ABG Hemoglobin ABG Oxyhemoglobin ABG Sodium ABG Potassium ABG Chloride ABG Glucose Oxyhemoglobin Sodium Potassium Chloride Carbon Dioxide BUN Creatinine Glucose 241 H POC Glucose 205 H 272 H Lactic Acid Calcium Phosphorus Magnesium Total Bilirubin AST ALT Alkaline Phosphatase Total Protein Albumin Triglycerides Arterial Blood Glucose Arterial Blood Ionized Calcium Crossmatch 01/02/21 01/02/21 01/03/21 23:25 23:43 03:45 WBC RBC Hgb Hct MCV MCHC RDW Plt Count Lymph % (Auto) [place] % (Auto) Lymph # (Auto) Seg Neutrophils % Seg Neuts % (Manual) Lymphocytes % (Manual) Monocytes % (Manual) Seg Neutrophils # Man Lymphocytes # (Manual) Monocytes # (Manual) PT INR ABG pH POC ABG pCO2 48.3 H POC ABG pO2 134.4 H 79.7 L ABG pO2 ABG HCO3 ABG O2 Saturation ABG Base Excess ABG Hemoglobin 7.7 L 8.6 L ABG Oxyhemoglobin ABG Sodium 131.8 L 130.4 L ABG Potassium ABG Chloride 97.0 L ABG Glucose 218 H 238 H Oxyhemoglobin Sodium Potassium Chloride Carbon Dioxide BUN Creatinine Glucose POC Glucose 218 H Lactic Acid Calcium Phosphorus Magnesium Total Bilirubin AST ALT Alkaline Phosphatase Total Protein Albumin Triglycerides Arterial Blood Glucose 218 H 238 H Arterial Blood Ionized Calcium 4.1 L 4.0 L Crossmatch 01/03/21 01/03/21 01/03/21 04:37 04:37 05:39 WBC 15.2 H RBC 2.38 L Hgb 7.3 L Hct 21.6 L MCV MCHC RDW 16.6 H Plt Count Lymph % (Auto) [place] % (Auto) Lymph # (Auto) Seg Neutrophils % Seg Neuts % (Manual) Lymphocytes % (Manual) Monocytes % (Manual) Seg Neutrophils # Man Lymphocytes # (Manual) Monocytes # (Manual) PT INR ABG pH POC ABG pCO2 POC ABG pO2 ABG pO2 ABG HCO3 ABG O2 Saturation ABG Base Excess ABG Hemoglobin ABG Oxyhemoglobin ABG Sodium ABG Potassium ABG Chloride ABG Glucose Oxyhemoglobin Sodium 136 L Potassium Chloride 94.5 L Carbon Dioxide BUN 69 H Creatinine 8.0 H Glucose 219 H POC Glucose 222 H Lactic Acid Calcium 7.8 L Phosphorus 4.80 H D Magnesium Total Bilirubin AST ALT Alkaline Phosphatase Total Protein Albumin Triglycerides Arterial Blood Glucose Arterial Blood Ionized Calcium Crossmatch Chest x-ray: image reviewed (mild interstitial edema; R. lung pneumonia; blunted left costophrenic amngle) Allied health notes reviewed: nursing
[2021-01-03] MEDS: INSULIN LISPRO 100 UNIT/ML SUB-Q SCH ×2 (12:28→19:14)
--- NOTE | 2021-01-03 12:52 | Progress Note ---
Assessment and Plan Cultures: 12/22/2020 blood culture: Streptococcus bovis, Prevotella 12/22/2020 PD fluid culture: No growth 12/24/2020 tracheal aspirate culture: No growth 12/24/2020 blood culture: No growth A/P: 60-year-old male with ESRD on PD, Crohn's disease, CHF, gastroesophageal reflux disease was admitted to the hospital with complaints of abdominal pain and fever: #Severe sepsis with shock: Remarkable improvement, off pressors (on Levophed and vasopressin), leukocytosis improving. Secondary to small bowel obstruction/necrotic bowel with associated peritonitis. Status post exploratory laparotomy on 12/23/2020 with extensive lysis, primary anastomosis, found to have necrotic segment of small bowel. #Small bowel obstruction/necrotic bowel: with concern for PD associated peritonitis: Nephrology and general surgery following. Status post exploratory laparotomy on 12/23/2020 with extensive lysis, primary anastomosis, found to have necrotic segment of small bowel. PD catheter remains in place. S/p ex lap, resection of perforated anastamosis, washout and abthera wound vac placement on 01/01. Repeat CT abdomen shows no new abscesses, noted small free fluid. #Streptococcus bovis bacteremia and Prevotella bacteremia: secondary to above. TTE without obvious vegetations. Repeat blood cultures negative. #ESRD: Renally dose antibiotics. Used to be on PD, cath remains in place. Now on HD. #Elevated LFTs: Secondary to sepsis. #Acute respiratory failure: extubated, then re-intubated 12/31/2020. #Anemia: Severe. Recs: -Monitor H&H -Continue IV Zosyn, renally dosed -Stop fluconazole -tentative end date for bacteremia treatment: 01/06/2021, however, may need to extend depending on clinical course -On TPN -Patient to go to the OR today Guarded prognosis will follow Millicent Weber MD [facility] ([facility]) Office [phone] Subjective Date of service: 01/03/21 Principal diagnosis: Ac hypoxemic resp failure; Severe Sepsis; Peritonitis; Acute SBO; ESRD; CHF Interval history: Patient remains intubated, sedated, no fever, now off pressors Objective - Exam Narrative Exam: General appearance: Sedated, intubated open eyes Eyes: anicteric sclerae, moist conjunctivae; no lid-lag; PERRLA HENT: Normocephalic, Atraumatic; normal external ears, nares open, oropharynx limited with endotracheal tube, tongue out with edema Neck: supple, tracheal midline, no JVD Lungs: Coarse breath sounds bilaterally CV: Tachycardic Abdomen: Soft Midline surgical wound with Abthera Wound VAC Extremities: no edema, no cyanosis Skin: No rash. Psych: Sedated Neuro: Sedated - Constitutional Vitals: Vital Signs Temp Pulse Resp BP Pulse Ox 97.6 F 80 17 133/60 97 01/03/21 04:00 01/03/21 12:31 01/03/21 12:31 01/03/21 12:31 01/03/21 12:31 Temperature -Last 24 Hours Temperature 97.6 F Temperature 99.4 F Temperature 98.9 F Temperature 98.8 F Temperature 98.6 F Temperature 98.4 F Temperature 98.8 F - Labs CBC & Chem 7: 01/03/21 04:37 01/03/21 04:37 Labs: Abnormal lab results 01/01/21 01/02/21 01/02/21 Range/Units 11:31 15:00 17:57 WBC (4.5-11.0) K/mm3 RBC (3.65-5.03) M/mm3 Hgb (11.8-15.2) gm/dl Hct (35.5-45.6) % RDW (13.2-15.2) % POC ABG pCO2 (32.0-48.0) mmHg POC ABG pO2 (83-108) mmHg ABG Hemoglobin (12.0-17.5) ABG Sodium (136.0-145.0) mmol/L ABG Chloride (98-107) mmol/L ABG Glucose (65-95) mg/dL Sodium (137-145) mmol/L Chloride (98-107) mmol/L BUN (9-20) mg/dL Creatinine (0.8-1.3) mg/dL Glucose 241 H (75-100) mg/dL POC Glucose 272 H (70-105) mg/dL Calcium (8.4-10.2) mg/dL Phosphorus (2.5-4.5) mg/dL Arterial Blood Glucose (65-95) mg/dL Arterial Blood Ionized Calcium (4.6-5.3) mg/dL Crossmatch See Detail 01/02/21 01/02/21 01/03/21 Range/Units 23:25 23:43 03:45 WBC (4.5-11.0) K/mm3 RBC (3.65-5.03) M/mm3 Hgb (11.8-15.2) gm/dl Hct (35.5-45.6) % RDW (13.2-15.2) % POC ABG pCO2 48.3 H (32.0-48.0) mmHg POC ABG pO2 134.4 H 79.7 L (83-108) mmHg ABG Hemoglobin 7.7 L 8.6 L (12.0-17.5) ABG Sodium 131.8 L 130.4 L (136.0-145.0) mmol/L ABG Chloride 97.0 L (98-107) mmol/L ABG Glucose 218 H 238 H (65-95) mg/dL Sodium (137-145) mmol/L Chloride (98-107) mmol/L BUN (9-20) mg/dL Creatinine (0.8-1.3) mg/dL Glucose (75-100) mg/dL POC Glucose 218 H (70-105) mg/dL Calcium (8.4-10.2) mg/dL Phosphorus (2.5-4.5) mg/dL Arterial Blood Glucose 218 H 238 H (65-95) mg/dL Arterial Blood Ionized Calcium 4.1 L 4.0 L (4.6-5.3) mg/dL Crossmatch 01/03/21 01/03/21 01/03/21 Range/Units 04:37 04:37 05:39 WBC 15.2 H (4.5-11.0) K/mm3 RBC 2.38 L (3.65-5.03) M/mm3 Hgb 7.3 L (11.8-15.2) gm/dl Hct 21.6 L (35.5-45.6) % RDW 16.6 H (13.2-15.2) % POC ABG pCO2 (32.0-48.0) mmHg POC ABG pO2 (83-108) mmHg ABG Hemoglobin (12.0-17.5) ABG Sodium (136.0-145.0) mmol/L ABG Chloride (98-107) mmol/L ABG Glucose (65-95) mg/dL Sodium 136 L (137-145) mmol/L Chloride 94.5 L (98-107) mmol/L BUN 69 H (9-20) mg/dL Creatinine 8.0 H (0.8-1.3) mg/dL Glucose 219 H (75-100) mg/dL POC Glucose 222 H (70-105) mg/dL Calcium 7.8 L (8.4-10.2) mg/dL Phosphorus 4.80 H D (2.5-4.5) mg/dL Arterial Blood Glucose (65-95) mg/dL Arterial Blood Ionized Calcium (4.6-5.3) mg/dL Crossmatch 01/03/21 Range/Units 11:29 WBC (4.5-11.0) K/mm3 RBC (3.65-5.03) M/mm3 Hgb (11.8-15.2) gm/dl Hct (35.5-45.6) % RDW (13.2-15.2) % POC ABG pCO2 (32.0-48.0) mmHg POC ABG pO2 (83-108) mmHg ABG Hemoglobin (12.0-17.5) ABG Sodium (136.0-145.0) mmol/L ABG Chloride (98-107) mmol/L ABG Glucose (65-95) mg/dL Sodium (137-145) mmol/L Chloride (98-107) mmol/L BUN (9-20) mg/dL Creatinine (0.8-1.3) mg/dL Glucose (75-100) mg/dL POC Glucose 232 H (70-105) mg/dL Calcium (8.4-10.2) mg/dL Phosphorus (2.5-4.5) mg/dL Arterial Blood Glucose (65-95) mg/dL Arterial Blood Ionized Calcium (4.6-5.3) mg/dL Crossmatch
--- NOTE | 2021-01-03 13:15 | Anesthesia Day of Surgery ---
Anesthesia Day of Surgery - Day of Surgery Patient Examined: Yes Patient H&P Reviewed: Yes Patient is NPO: Yes
--- NOTE | 2021-01-03 13:20 | Progress Note ---
Assessment and Plan Assessment and plan: This is a 60 YO Male with ESRD on PD, GERD, Crohn's Disease, Nicotine Dependence, HTN, Systolic CHF(EF 35%) who presented to the emergency department on 12/22 with complaints of abdominal pain which began shortly after eating fast food rated 10/10 which is periumbilical, constant, associated with fever, nausea and multiple sites of vomiting and self-reported inability to undergo PD. In the emergency room patient underwent a CT scan of the abdomen/pelvis which revealed evidence of partial small bowel obstruction, symptoms were consistent with bacterial peritonitis. Patient was admitted to the hospital service with sepsis, peritonitis, and small bowel obstruction with consults to general surgery, nephrology, infectious disease and [facility]. 12/23. Patient had temperature 101.2 F, tachycardia and elevated lactic acid on admission. Meet sepsis criteria. Started on IV antibiotics. ID has been co nsulted. Surgery consulted this a.m.-advised laparoscopy. He remains on NG tube connected to suction. 12/24. Patient was noted to have peritonitis yesterday and patient undergoing exploratory laparotomy. Patient remained intubated after procedure and is in ICU. Now on broad-spectrum antibiotics. ID on board. 12/25. Remains mechanically ventilated and sedated. Temp 103 Fahrenheit. Antibiotics broadened-ID added fluconazole and Flagyl. Blood cultures ordered. Plan to repeat CT abdomen tomorrow if not better. Surgery following. 12/26: Patient remains on mechanical ventilation on CMV tidal line 550, rate of 14, PEEP of 8 and 30% FiO2 and sedated on fentanyl 4 micrograms. Today we will remove his Jeffery and CCM dropped his rate controlled him on CPAP. We will trend CBC given recent drop in H/H. 12/27: Patient remains intubated on CMV tidal volume 550, rate 12, PEEP 8 on 30% FiO2 at the time my examination. Patient's TPN will be changed to PPN. Patient's fentanyl drip will be changed to IV push fentanyl and have a permacath placed today and midline. Patient was placed on a spontaneous breathing trial was switched back to CMV prior to procedure. 12/28: Patient on fentanyl but awake and follows commands. At the time of my examination he was on a CPAP trial and is scheduled to receive HD today. s/o permacath and PICC placement with vascular yesterday. His blood culture grew P revotella and addition to Streptococcus bovis. This evening Dr. Spicer attempted to extubate the patient and his heart rate went to the 180s. Stat EKG obtained and cardiology consulted. 12/29: Patient was started on amiodarone IV for A. fib RVR yesterday and today he is more rate controlled into the 70s and 80s. Patient was extubated yesterday and is currently on Ventimask. Patient will be transferred to [facility]. Patient continues to be n.p.o. with TPN and NG tube to [facility]. He is hypokalemic today which was repleted. 12/30; patient was on IV amiodarone for treatment with RVR, rate is controlled. Patient was off oxygen. patient is n.p.o. and on TPN. Surgery is following the patient. 12/31: Patient was intubated overnight for respiratory distress and this morning on examination he was on assist control tidal volume 450, rate 20, PEEP 6, 100% FiO2 and RT was getting a ABG to adjust vent settings. Patient had a acute bump in WBC and per ID recommendations we will obtain a CT abdomen/pelvis if leukocytosis persist. Patient is on TPN and sedated with Levophed. Patient is also on vasopressor support with Levophed. Per surgery his ileus is resolving however will maintain OGT to LIWS. 01/01: Patient was started on a vasopressin yesterday late evening. This morning patient is on 20 mcg of Levophed and 0.03 vasopressin and sedated on 20 mcg of propofol. Patient WBC increased today and he is hypokalemic. We will treat hyperkalemia. Patient had a CT chest and abdomen/pelvis pending. The time examination total of 450, rate 20, PEEP of 6 and 35 percent FiO2. Per RN, Dr Pollock has stated that the patient will be returning to the OR today for likely anastomosis seen on CT abdomen/pelvis. 01/02: Patient noted, WBC improving, but noted to have anemia, will transfuse additional unit of Blood and repeat H/H. continue supportive care. 01/03: Continue to wean pressors, ABX PER ID, patient to return to OR today for washout and possible closure, CONTINUE TPN Severe Sepsis with shock Streptococcus bovis bacteremia/Prevotella bacteremia Gwendolyn albicans tracheal aspirate Small bowel obstruction/necrotic bowel s/p ex lap with extensive lysis of adhesions, 2 small bowel resections with primary anastomosis Acute hypoxic respiratory failure Postoperative ileus Atrial fibrillation with RVR Hyperkalemia Gwendolyn albicans in tracheal aspirate from 12/24 ESRD on PD, PermCath to be placed Transaminitis Systolic CHF(EF 35%) Crohn's disease Hypertension -[facility], surgery, infectious disease, nephrology, vascular surgery, cardiology consulted, appreciate recommendations -S/p ex lap with extensive expectations, 2 small bowel resections with primary anastomosis with surgery on 12/23 -s/p PICC and Permacath placement with vascular surgery on 12/27 -Extubated on 12/28, reintubated 12/31 for respiratory distress -Vasopressor support with Levophed and vasopressin -Transitioned to HD from PD -HD per nephro -NPO -PPN -NGT to LIS -IV antibiotics -12/29 echocardiogram shows moderate concentric LVH, small pericardial effusion, transmitral Doppler flow pattern is grade 1 abnormal relaxation pattern, left- ventricular systolic function normal, LVEF 50 to 55%, no wall motion abnorma lities. -01/01 CT abdomen/pelvis shows small pericardial effusion, mild coronary artery atherosclerotic calcification, small bilateral pleural effusions with associated volume loss, no convincing evidence of bowel obstruction or inflammation, postoperative changes from interval/recent midline laparotomy with a moderate amount of free fluid throughout the abdomen, small amount of dependent free air presumably postoperative -Tobacco abuse cessation counseling -Trend CBC, BMP DVT/GI prophylaxis: PPI, heparin subcu, SCDs to bilateral lower extremities while in bed Disposition: ICU Critical care statement The high probability of a clinically significant, sudden or life threatening deterioration of the [pulmonary, cardiac, neuro, renal] system(s) required my full and direct attention, intervention and personal management. The aggregate critical care time was [35] minutes. This time is in addition to time spent performing reported procedures but includes the following: [x] Data Review and interpretation [x] Patient assessment and monitoring of vital signs [x] Documentation [x] Medication orders and management History Interval history: This is a 60-year-old male with ESRD on peritoneal dialysis, Crohn's, hypert ension, systolic CHF (EF 35%) who was admitted with sepsis, peritonitis, small bowel obstruction and now has gram-positive cocci bacteremia. Patient seen and examined, resting comfortably. No new complaints reported to me. Still on the ventilator. Plan to return to OR Hospitalist Physical - Physical exam Narrative exam: General appearance: Present: no acute distress, other (Sedated on mechanical ventilation) - EENT Eyes: Present: PERRL ENT: poor dentition - Neck Neck: Absent: masses or JVD, cervical LAD - Respiratory Respiratory effort: normal Respiratory: bilateral: diminished - Cardiovascular Rhythm: irregularly irregular Heart Sounds: Present: S1 & S2. Absent: systolic murmur, diastolic murmur - Extremities Extremities: no ischemia, pulses intact, pulses symmetrical, No edema, normal temperature, normal color Peripheral Pulses: within normal limits - Abdominal General gastrointestinal: distended, abdomen dressing, rigid, absent bowel sounds, PD catheter in place - Integumentary Integumentary: Present: warm, dry - Neurologic Neurologic: other (sedated and intubated) - Allied Health Allied health notes reviewed: nursing - Constitutional Vitals: Temp Pulse Resp BP Pulse Ox 97.6 F 80 17 133/60 97 01/03/21 04:00 01/03/21 12:31 01/03/21 12:31 01/03/21 12:31 01/03/21 12:31 General appearance: Present: no acute distress, other (Sedated on mechanical ventilation) HEART Score - HEART Score Troponin: Troponin T 0.021 ng/mL (0.00-0.029) 12/22/20 14:38 Results - Labs CBC & Chem 7: 01/04/21 04:38 01/04/21 04:38 Labs: Laboratory Last Values WBC 15.2 K/mm3 (4.5-11.0) H 01/03/21 04:37 RBC 2.38 M/mm3 (3.65-5.03) L 01/03/21 04:37 Hgb 7.3 gm/dl (11.8-15.2) L 01/03/21 04:37 Hct 21.6 % (35.5-45.6) L 01/03/21 04:37 MCV 91 fl (84-94) 01/03/21 04:37 MCH 31 pg (28-32) 01/03/21 04:37 MCHC 34 % (32-34) 01/03/21 04:37 RDW 16.6 % (13.2-15.2) H 01/03/21 04:37 Plt Count 207 K/mm3 (140-440) 01/03/21 04:37 Lymph % (Auto) 6.5 % (13.4-35.0) L 12/28/20 05:40 Bartholomew % (Auto) 16.7 % (0.0-7.3) H 12/28/20 05:40 Eos % (Auto) 3.2 % (0.0-4.3) 12/28/20 05:40 Baso % (Auto) 1.0 % (0.0-1.8) 12/28/20 05:40 Lymph # (Auto) 0.3 K/mm3 (1.2-5.4) L 12/28/20 05:40 Bartholomew # (Auto) 0.7 K/mm3 (0.0-0.8) 12/28/20 05:40 Eos # (Auto) 0.1 K/mm3 (0.0-0.4) 12/28/20 05:40 Baso # (Auto) 0.0 K/mm3 (0.0-0.1) 12/28/20 05:40 Add Manual Diff Complete 01/01/21 17:58 Total Counted 100 01/01/21 17:58 Seg Neutrophils % 71.1 % (40.0-70.0) H 12/28/20 05:40 Seg Neuts % (Manual) 84.0 % (40.0-70.0) H 01/01/21 17:58 Band Neutrophils % 1.0 % 12/29/20 05:16 Lymphocytes % (Manual) 4.0 % (13.4-35.0) L 01/01/21 17:58 Reactive Lymphs % (Man) 1.0 % 12/29/20 05:16 Monocytes % (Manual) 12.0 % (0.0-7.3) H 01/01/21 17:58 Eosinophils % (Manual) 2.0 % (0.0-4.3) 12/29/20 05:16 Metamyelocytes % 2.0 % 12/29/20 05:16 Nucleated RBC % Not Reportable 01/01/21 17:58 Seg Neutrophils # 3.1 K/mm3 (1.8-7.7) 12/28/20 05:40 Seg Neutrophils # Man 22.6 K/mm3 (1.8-7.7) H 01/01/21 17:58 Band Neutrophils # 0.0 K/mm3 01/01/21 17:58 Lymphocytes # (Manual) 1.1 K/mm3 (1.2-5.4) L 01/01/21 17:58 Abs React Lymphs (Man) 0.0 K/mm3 01/01/21 17:58 Monocytes # (Manual) 3.2 K/mm3 (0.0-0.8) H 01/01/21 17:58 Eosinophils # (Manual) 0.0 K/mm3 (0.0-0.4) 01/01/21 17:58 Basophils # (Manual) 0.0 K/mm3 (0.0-0.1) 01/01/21 17:58 Metamyelocytes # 0.0 K/mm3 01/01/21 17:58 Myelocytes # 0.0 K/mm3 01/01/21 17:58 Promyelocytes # 0.0 K/mm3 01/01/21 17:58 Blast Cells # 0.0 K/mm3 01/01/21 17:58 WBC Morphology Not Reportable 01/01/21 17:58 Hypersegmented Neuts Not Reportable 01/01/21 17:58 Hyposegmented Neuts Not Reportable 01/01/21 17:58 Hypogranular Neuts Not Reportable 01/01/21 17:58 Smudge Cells Not Reportable 01/01/21 17:58 Toxic Granulation Not Reportable 01/01/21 17:58 Toxic Vacuolation Not Reportable 01/01/21 17:58 Dohle Bodies Not Reportable 01/01/21 17:58 Pelger-Huet Anomaly Not Reportable 01/01/21 17:58 Lamar Rods Not Reportable 01/01/21 17:58 Platelet Estimate Not Reportable 01/01/21 17:58 Clumped Platelets Not Reportable 01/01/21 17:58 Plt Clumps, EDTA Not Reportable 01/01/21 17:58 Large Platelets Not Reportable 01/01/21 17:58 Giant Platelets Not Reportable 01/01/21 17:58 Platelet Satelliting Not Reportable 01/01/21 17:58 Plt Morphology Comment Not Reportable 01/01/21 17:58 RBC Morphology Normal 01/01/21 17:58 Dimorphic RBCs Not Reportable 01/01/21 17:58 Polychromasia Not Reportable 01/01/21 17:58 Hypochromasia Not Reportable 01/01/21 17:58 Poikilocytosis Not Reportable 01/01/21 17:58 Anisocytosis Not Reportable 01/01/21 17:58 Microcytosis Not Reportable 01/01/21 17:58 Macrocytosis Not Reportable 01/01/21 17:58 Spherocytes Not Reportable 01/01/21 17:58 Pappenheimer Bodies Not Reportable 01/01/21 17:58 Sickle Cells Not Reportable 01/01/21 17:58 Target Cells Not Reportable 01/01/21 17:58 Tear Drop Cells Not Reportable 01/01/21 17:58 Ovalocytes Not Reportable 01/01/21 17:58 Helmet Cells Not Reportable 01/01/21 17:58 [place] Bodies Not Reportable 01/01/21 17:58 [place] Rings Not Reportable 01/01/21 17:58 Jenny Cells Not Reportable 01/01/21 17:58 Bite Cells Not Reportable 01/01/21 17:58 Crenated Cell Not Reportable 01/01/21 17:58 Elliptocytes Not Reportable 01/01/21 17:58 Acanthocytes (Spur) Not Reportable 01/01/21 17:58 Rouleaux Not Reportable 01/01/21 17:58 Hemoglobin C Crystals Not Reportable 01/01/21 17:58 Schistocytes Not Reportable 01/01/21 17:58 Malaria parasites Not Reportable 01/01/21 17:58 Lucas Bodies Not Reportable 01/01/21 17:58 Hem Pathologist Commnt No 01/01/21 17:58 PT 16.9 Sec. (12.2-14.9) H 01/01/21 12:45 INR 1.39 (0.87-1.13) H 01/01/21 12:45 APTT 25.1 Sec. (24.2-36.6) 12/22/20 14:38 ABG pH 7.384 (7.320-7.450) 01/03/21 03:45 POC ABG pCO2 48.3 mmHg (32.0-48.0) H 01/03/21 03:45 ABG pCO2 33.9 mm Hg 12/31/20 09:38 POC ABG pO2 79.7 mmHg (83-108) L 01/03/21 03:45 ABG pO2 354.0 mm Hg (80.0-90.0) H 12/31/20 09:38 POC ABG HCO3 28.2 01/03/21 03:45 ABG HCO3 22.0 mmol/L (20.0-26.0) 12/31/20 09:38 ABG O2 Saturation 95.6 (0-100) 01/03/21 03:45 ABG O2 Content 13.5 (0.0-44) 12/31/20 09:38 POC ABG Base Excess 2.7 01/03/21 03:45 ABG Base Excess -1.9 mmol/L (-2.0-3.0) 12/31/20 09:38 ABG Hemoglobin 8.6 (12.0-17.5) L 01/03/21 03:45 ABG Oxyhemoglobin 94.5 (94-98) 01/03/21 03:45 ABG Carboxyhemoglobin 1.0 % (0.0-5.0) 12/31/20 09:38 ABG Methemoglobin 0.3 (0.0-1.5) 01/03/21 03:45 ABG Sodium 130.4 mmol/L (136.0-145.0) L 01/03/21 03:45 ABG Potassium 3.7 mmol/L (3.40-4.50) 01/03/21 03:45 ABG Chloride 97.0 mmol/L (98-107) L 01/03/21 03:45 ABG Glucose 238 mg/dL (65-95) H 01/03/21 03:45 Oxyhemoglobin 97.9 % (95.0-99.0) 12/31/20 09:38 Carboxyhemoglobin 0.8 (0.5-1.5) 01/03/21 03:45 FiO2 100 % 12/31/20 09:38 FiO2 % 40.0 01/03/21 03:45 Sodium 136 mmol/L (137-145) L 01/03/21 04:37 Potassium 4.0 mmol/L (3.6-5.0) D 01/03/21 04:37 Chloride 94.5 mmol/L (98-107) L 01/03/21 04:37 Carbon Dioxide 28 mmol/L (22-30) 01/03/21 04:37 Anion Gap 18 mmol/L 01/03/21 04:37 BUN 69 mg/dL (9-20) H 01/03/21 04:37 Creatinine 8.0 mg/dL (0.8-1.3) H 01/03/21 04:37 Estimated GFR 8 ml/min 01/03/21 04:37 BUN/Creatinine Ratio 9 % 01/03/21 04:37 Glucose 219 mg/dL (75-100) H 01/03/21 04:37 POC Glucose 232 mg/dL (70-105) H 01/03/21 11:29 Lactic Acid 1.50 mmol/L (0.7-2.0) 01/02/21 18:00 Calcium 7.8 mg/dL (8.4-10.2) L 01/03/21 04:37 Phosphorus 4.80 mg/dL (2.5-4.5) H D 01/03/21 04:37 Magnesium 1.80 mg/dL (1.7-2.3) 01/03/21 04:37 Total Bilirubin 2.10 mg/dL (0.1-1.2) H 01/01/21 17:58 AST 223 units/L (5-40) H 01/01/21 17:58 ALT 100 units/L (7-56) H 01/01/21 17:58 Alkaline Phosphatase 206 units/L (35-129) H 01/01/21 17:58 Ammonia 30.0 umol/L (25-60) 12/22/20 14:38 Troponin T 0.021 ng/mL (0.00-0.029) 12/22/20 14:38 Total Protein 4.8 g/dL (6.3-8.2) L 01/01/21 17:58 Albumin 1.9 g/dL (3.9-5) L 01/01/21 17:58 Albumin/Globulin Ratio 0.7 % 01/01/21 17:58 Triglycerides 155 mg/dL (2-149) H 12/30/20 09:00 Lipase 41 units/L (13-60) 12/22/20 14:38 Procalcitonin > 200.00 ng/mL (<0.15) 12/24/20 15:06 TSH 1.470 mlU/mL (0.270-4.200) 12/28/20 19:44 Arterial Blood Glucose 238 mg/dL (65-95) H 01/03/21 03:45 Arterial Blood Ionized Calcium 4.0 mg/dL (4.6-5.3) L 01/03/21 03:45 Urine Color Yellow (Yellow) 12/22/20 18:53 Urine Turbidity Clear (Clear) 12/22/20 18:53 Urine pH 7.0 (5.0-7.0) 12/22/20 18:53 Ur Specific [place] 1.012 (1.003-1.030) 12/22/20 18:53 Urine Protein >500 mg/dL (Negative) 12/22/20 18:53 Urine Glucose (UA) Neg mg/dL (Negative) 12/22/20 18:53 Urine Ketones Neg mg/dL (Negative) 12/22/20 18:53 Urine Blood Neg (Negative) 12/22/20 18:53 Urine Nitrite Neg (Negative) 12/22/20 18:53 Urine Bilirubin Neg (Negative) 12/22/20 18:53 Urine Urobilinogen < 2.0 mg/dL (<2.0) 12/22/20 18:53 Ur Leukocyte Esterase Neg (Negative) 12/22/20 18:53 Urine WBC (Auto) < 1.0 /HPF (0.0-6.0) 12/22/20 18:53 Urine RBC (Auto) 1.0 /HPF (0.0-6.0) 12/22/20 18:53 Fluid Type Dialysate 12/22/20 Unknown Fluid Color Colorless 12/22/20 Unknown Fluid Appearance Cloudy 12/22/20 Unknown Fluid WBC 208 /mm3 12/22/20 Unknown Fluid RBC 45 /mm3 12/22/20 Unknown Fluid Seg Neutrophils 82.0 % 12/22/20 Unknown Fluid Lymphocytes 11.0 % 12/22/20 Unknown Fluid Reactive Lymphs 0 % 12/22/20 Unknown Fluid Monocytes 7.0 % 12/22/20 Unknown Fluid Eosinophils 0 % 12/22/20 Unknown Fluid Basophils 0 % 12/22/20 Unknown Random Vancomycin 13.7 ug/mL (0-40.0) 12/26/20 Unknown Hepatitis A IgM Ab Non-reactive (NonReactive) 12/23/20 11:38 Hep Bs Antigen Non-reactive (Negative) 12/23/20 11:38 Hep B Core IgM Ab Non-reactive (NonReactive) 12/23/20 11:38 Hepatitis C Antibody Non-reactive (NonReactive) 12/23/20 11:38 Blood Type A POSITIVE 01/01/21 11:31 Antibody Screen Negative 01/01/21 11:31 Crossmatch See Detail 01/01/21 11:31 Microbiology: Microbiology 12/31/20 07:11 Tracheal Aspirate Sputum Culture - Final Jeffery/IV: Voiding Method Incontinent Active Medications - Current Medications Current Medications: Generic Name Dose Route Start Last Admin Trade Name Freq PRN Reason Stop Dose Admin Acetaminophen 650 mg 12/31/20 15:30 12/31/20 15:13 Acetaminophen 650 Mg Rect Supp [place] 650 mg Q6H PRN Administration Non Cardiac Pain or Temp>100.5 Albuterol 2.5 mg 12/22/20 19:42 Albuterol 2.5 Mg/3 Ml Nebu IH Q4HRT PRN Shortness Of Breath Digoxin 0.125 mg 12/31/20 10:00 01/02/21 09:30 Digoxin 0.5 Mg/2 Ml Inj IV Not Given Q48HR THOMAS Famotidine 10 mg 12/24/20 13:00 01/02/21 21:37 Famotidine 20 Mg/2 Ml Inj IV 10 mg BID THOMAS Administration Fentanyl 50 mcg 12/24/20 11:35 01/01/21 11:28 Fentanyl 100 Mcg/2 Ml Inj IV 50 mcg Q10MIN PRN Administration ANALGESIA Haloperidol Lactate 5 mg 12/29/20 14:16 12/31/20 00:19 Haloperidol Lactate 5 Mg/1 Ml Inj IV 5 mg Q12H PRN Administration Agitation Heparin Sodium (Porcine) 5,000 unit 12/24/20 10:00 01/03/21 10:14 Heparin 5,000 Unit/1 Ml Vial SUB-Q Not Given Q12HR [facility] Hydralazine HCl 10 mg 12/30/20 12:00 01/03/21 10:15 Hydralazine 20 Mg/1 Ml Inj IV Not Given Q4HR THOMAS Hydrophilic Ointment 1 applic 12/31/20 06:39 Lip Therapy Vaseline TP Q2HR PRN Dry Lips Sodium Chloride 100 mls @ 999 mls/hr 12/23/20 11:03 Nacl 0.9% IV RYLAND PRN Hypotension Propofol 1,000 mg in 100 mls @ 5.484 mls/hr 12/23/20 19:00 01/02/21 17:36 Diprivan 10 Mg/Ml IV 0 mcg/kg/min TITR THOMAS 0 mls/hr Titration Protocol 10 MCG/KG/MIN Fentanyl Citrate 2,000 mcg in 100 mls @ 4.725 mls/hr 12/31/20 08:00 01/03/21 10:26 Fentanyl Drip Premix IV 2 mcg/kg/hr TITR THOMAS 9.45 mls/hr Administration Protocol 1 MCG/KG/HR NORepinephrine/NS 8 MG-250 ML 8 mg in 250 mls @ 3.75 mls/hr 12/31/20 09:00 01/03/21 08:30 Norepinephrine/Ns 8 Mg-250 Ml (Double Conc) IV 0 mcg/min TITRATE THOMAS 0 mls/hr Titration Protocol 2 MCG/MIN Piperacillin Sod/Tazobactam Sod 2.25 gm in 50 mls @ 100 mls/hr 12/31/20 12:00 01/03/21 04:35 Zosyn/Ns 2.25 Gm/50ml IV 01/06/21 20:29 100 mls/hr Q8H THOMAS Administration Protocol Vasopressin 20 unit/ Sodium 101 mls @ 9.09 mls/hr 12/31/20 21:00 01/02/21 21:13 Chloride IV 0 units/min TITR THOMAS 0 mls/hr Titration Protocol 0.03 UNITS/MIN Phenylephrine HCl 100 mg/ 100 mls @ 3 mls/hr 12/31/20 23:45 01/01/21 18:30 Sodium Chloride IV 0 mcg/min TITR THOMAS 0 mls/hr Titration Protocol 50 MCG/MIN Amino Acids/Electrolytes/Dextrose 2,016 mls @ 84 mls/hr 01/02/21 20:00 01/02/21 20:46 Tpn Adult IV 01/03/21 19:59 84 mls/hr DAILY@2000 THOMAS Administration Protocol Sodium Chloride 500 mls @ 0 mls/hr 01/03/21 08:49 Nacl 0.9% 500 Ml IV 01/03/21 23:59 ONCE NR As Directed Amino Acids/Electrolytes/Dextrose 2,016 mls @ 84 mls/hr 01/03/21 20:00 Tpn Adult IV DAILY@1999 [facility] Protocol Insulin Glargine 10 units 01/03/21 10:00 01/03/21 10:16 Insulin Glargine 100 Units/Ml SUB-Q 10 units DAILY THOMAS Administration Insulin Human Lispro 0 unit 01/03/21 12:00 Insulin Lispro 100 Unit/Ml SUB-Q Q6HR [facility] Protocol Metoprolol Tartrate 5 mg 12/30/20 12:00 01/03/21 06:32 Metoprolol Tartrate 5 Mg/5 Ml Inj IV Not Given Q4HR [facility] Multi-Ingred Cream/Lotion/Oil/Oint 1 applic 12/31/20 06:39 Mineral Oil/Petrolatum, White Ophth Oint 3.5 Gm OU Q4HR PRN Dry Eye(s) Sodium Chloride 10 ml 12/22/20 22:00 01/03/21 10:16 Sodium Chloride 0.9% 10 Ml Flush Syringe IV 10 ml BID THOMAS Administration Sodium Chloride 10 ml 12/22/20 19:42 Sodium Chloride 0.9% 10 Ml Flush Syringe IV PRN PRN LINE FLUSH Nutrition/Malnutrition Assess - Dietary Evaluation Nutrition/Malnutrition Findings: Nutrition Notes Start: 12/24/20 12:36 Freq: Status: Active Protocol: Document 01/02/21 11:54 (Rec: 01/02/21 12:06 [id number]) Nutrition Notes Initial or Follow up Reassessment Current Diagnosis CKD (stage V CKD),Sepsis, Hypertension,Heart Failure Other Pertinent Diagnosis bacterial peritonitis, on HD MWF/PRN, SBO, Crohns disease, Anemia Current Diet TPN at 84 ml/hr Labs/Tests Na 134 K 5.3 Phos 6.5 Pertinent Medications Norepinnephrine Vasopressin Height 5 ft 7 in Weight 94.5 kg [place] Body Weight (kg) 67.27 BMI 32.6 Weight Status Obese Subjective/Other Information TPN day 8. Pt receiving HD at time of visit. Per RN, no plans for TF currently. Percent of energy/protein needs met: 79%/100% Burn Absent Trauma Absent Difficulty In Swallowing Skin Integrity/Comment Intact Current % PO Negligible Minimum of two criteria No physical signs of malnutrition #1 Nutrition Diagnosis Inadequate oral intake Diagnosis Progress(for reassessment Continues documentation) Is patient on ventilator? Yes Is Patient Ambulatory and/or Out of Bed No [facility] 2049.168 Kcal/Kg value to use for calculation 21 Approximate Energy Requirements Using 1985 kcal/Kg Calculation Used for Recommendations Kcal/kg Additional Notes Protein needs: >97g (>1.2g/kg AdjBW) fluid needs: 1 mL/kcal or per MD Nutrition Intervention Change Diet Order: Continue TPN Nutrition Support: TPN at 84ml/hr: AA 5.5% Ca 5 mEq Phos 0 mmol Cl/Acetate 75%/25% 1422 mOsm Lipids MVI Kcal 1,960 Protein (gm) 110 Carbohydrates (gm) 300 Fat (gm) 50 Fluid (mL) 2,266 Goal #1 Meet kcal and protein needs as best as possible Anticipated Discharge Needs: unable to determine at this time Follow-Up By: 01/03/21 Additional Comments Labs in AM: BMP, Mg and Phos
[2021-01-03] MEDS ORDERED: fentaNYL 100 MCG/2 ML INJ ONE (14:18)
[2021-01-03] MEDS ORDERED: propofoL 200 MG/20 ML VIAL IV ONE (14:19)
[2021-01-03] MEDS ORDERED: ROCURONIUM 50 MG/5 ML INJ IV ONE ×2 (14:26→16:58)
[2021-01-03] MEDS ORDERED: HEPARIN 10,000 UNITS/10 ML VIAL ONE (15:40)
[2021-01-03] MEDS ORDERED: SODIUM CHLORIDE 0.9% 100 ML ONE (15:42)
[2021-01-03] MEDS ORDERED: SODIUM CHLORIDE 0.9% IRR 1,500 ML BOTTLE IR ONE (16:00)
[2021-01-03] MEDS ORDERED: SODIUM CHLORIDE 0.9% 500 ML 500 ML IV SCH (17:03)
[2021-01-03] MEDS ORDERED: PHENYLEPHRINE/NS 1,000 MCG/10 ML SYRINGE (OR USE) IV ONE (18:10)
--- NOTE | 2021-01-03 18:37 | Operative Report ---
Operative Report Operative Report: Date: January 03, 2021 Surgeon: Adri Sanchez MD [employer] Taper surgeon: Radha Pollock DO Procedure performed:1. Exploratory laparotomy, 2. Right hemicolectomy, 3. Peritoneal lavage, 4. Partial omentectomy, 5. ABThera wound VAC placement Anesthesia: General Indications: Patient is a 60-year-old male who is here for a second procedure after leaving his abdomen open for a leak at his anastomosis from a recent operation, where he was left in discontinuity. Due to the patient's overall guarded prognosis, the decision was made to stage his procedures. His daughter signed informed consent. Details of procedure: Patient was brought into the OR suite laid in supine position. Bilateral lower extremity SCDs were placed. General anesthesia was induced through his previously placed ET tube patient's abdomen was prepped and draped in sterile fashion. His ABThera VAC was removed. His small bowel loops were noted to have fibrinous exudate, and were fairly easy separate from each other. There was not noted to be any leak from any of the staple lines. At this time it was decided to mobilize his right colon in anticipation of anastomosis at the next procedure. His cecum and proximal ascending colon were noted to be very thick and fibrous and not ideal for anastomosis. It was decided to do a right hemicolectomy and plan his anastomosis from small bowel to transverse colon. Patient was noted to have a very thick, edematous, short, and friable mesocolon. There was also noted to be a very high hepatic flexure that was difficult to mobilize due to anatomic location and significant bleeding. Starting lateral to medial, the colon was mobilized however there was no clean lateral plane due to previous inflammatory process. The transverse colon was transected just distal to the hepatic flexure, and the mesocolon was transected with an Enseal device. Care was taken to identify and visualize the duodenum. Patient had generalized oozing from all surfaces as well as several blood vessels that need to be tied off with silk suture for persistent bleeding. The right colon was sent off the table as specimen as well as a piece of omentum that was found to be nonviable. His abdominal cavity was then irrigated with warm normal saline. Hemostasis was again verified, an ABThera wound VAC was placed in usual fashion making sure all viscera were safely covered. Patient was then taken to ICU in stable condition. All counts were correct. EBL:~1700 mL Fluids given: 2 units PRBC, 1 unit FFP Complications: None immediate Specimen: Right colon, partial omentum
--- NOTE | 2021-01-03 19:12 | Post Anesthesia Evaluation ---
- Post Anesthesia Evaluation Patient Participated: No Airway Patent: Yes Stable Respiratory Function: No Nausea/Vomiting: No Temp > 96.8F: Yes Pain Manageable: Yes Adequeate Hydration: Yes Anesthesia Complications: No Block Receding Appropriately: Not Applicable Patient on Ventilator: Yes (Transferred to ICU)
[2021-01-03] MEDS: TOTAL PARENTERAL NUTRITION 2,016 ML IV SCH (20:03)
[2021-01-04] MEDS: hydrALAZINE 20 MG/1 ML INJ IV SCH ×6 (02:18→21:49)
[2021-01-04] MEDS: METOPROLOL TARTRATE 5 MG/5 ML INJ IV SCH ×6 (02:19→21:50)
[2021-01-04] MEDS: PIPERACIL-TAZO 2.25 GM/50 ML 2.25 GM/50 ML BAG IV SCH ×3 (04:20→19:59)
[2021-01-04 05:15] LABS: Hematocrit 26.2 % (35.5-45.6); Hemoglobin 8.9 gm/dl (11.8-15.2); Mean Corpuscular HGB Conc 34 % (32-34); Mean Corpuscular Volume 91 fl (84-94); Platelet Count 171 K/mm3 (140-440); Red Blood Count 2.89 M/mm3 (3.65-5.03); Red Cell Distribution Width 16.1 % (13.2-15.2)
[2021-01-04 05:38] LABS: Calcium 7.7 mg/dL (8.4-10.2)
[2021-01-04] MEDS: INSULIN LISPRO 100 UNIT/ML SUB-Q SCH ×4 (06:00→18:11)
[2021-01-04] MEDS: DIGOXIN 0.5 MG/2 ML INJ IV SCH (09:12)
[2021-01-04] MEDS: fentaNYL DRIP Premix 2,000 MCG/100 ML BAG IV SCH ×2 (09:40→18:10)
[2021-01-04] MEDS: HEPARIN 5,000 UNIT/1 ML VIAL SUB-Q SCH ×2 (10:07→21:59)
[2021-01-04] MEDS: INSULIN GLARGINE 100 UNITS/ML SUB-Q SCH (10:09)
[2021-01-04] MEDS: FAMOTIDINE 20 MG/2 ML INJ IV SCH ×2 (10:10→22:00)
--- NOTE | 2021-01-04 12:42 | Progress Note ---
Assessment and Plan New onset atrial fibrillation currently, he is sinus rhythm on telemetry Hx of nonischemic cardiomyopathy, resolving LVEF 50-55% by echo this presentation Small bowl obstruction status post exploratory laparotomy status post emergency exploratory laparotomy for anastomotic leak ESRD on PD Anemia s/p PRBCs Continue intravenous digoxin, and intravenous metoprolol for paroxysmal atrial fibrillation. Patient is not a candidate for anticoagulation at this time due to his postoperative status and the presence of severe anemia. Subjective Date of service: 01/04/21 Principal diagnosis: Ac hypoxemic resp failure; Severe Sepsis; Peritonitis; Acute SBO; ESRD; CHF Interval history: Patient is alert but remains intubated, on the ventilator. Currently, he is sinus rhythm on telemetry. Objective Vital Signs Temp Pulse Pulse Resp BP Pulse Ox Pulse Ox 01/04/21 12:30 84 137/62 01/04/21 12:24 86 116/68 97 01/04/21 12:15 84 142/73 01/04/21 12:10 85 146/69 01/04/21 11:50 99.0 F 85 18 146/69 99 01/04/21 11:00 86 116/68 97 01/04/21 10:30 83 122/63 96 01/04/21 10:00 85 127/67 98 01/04/21 09:30 86 135/67 97 01/04/21 09:00 87 127/68 98 01/04/21 08:30 86 33 H 130/65 97 01/04/21 08:08 90 134/68 99 01/04/21 08:00 99.2 F 86 86 25 H 134/65 98 01/04/21 07:30 89 135/69 01/04/21 07:10 99.2 F 01/04/21 07:00 89 123/66 95 01/04/21 06:30 90 134/68 01/04/21 06:00 91 H 127/68 01/04/21 05:30 89 132/70 99 01/04/21 05:22 89 125/55 01/04/21 05:21 90 124/55 01/04/21 05:00 93 H 122/63 01/04/21 04:59 93 H 134/59 100 01/04/21 04:30 88 126/64 01/04/21 04:00 88 88 20 130/66 100 01/04/21 03:30 89 132/65 05/12/21 03:00 88 129/67 01/04/21 02:30 87 124/65 97 01/04/21 02:19 90 118/62 01/04/21 02:18 90 118/62 01/04/21 02:00 88 118/62 99 01/04/21 01:30 87 115/57 99 01/04/21 01:00 86 112/58 99 01/04/21 00:30 88 111/63 98 01/04/21 00:00 85 85 20 91/61 98 01/03/21 23:30 85 96/57 97 01/03/21 23:00 86 108/55 97 01/03/21 22:30 87 104/59 01/03/21 22:04 89 109/60 01/03/21 22:00 88 109/57 97 01/03/21 21:30 89 122/62 96 01/03/21 21:03 90 116/61 99 01/03/21 21:00 98 H 26 H 124/63 99 01/03/21 20:52 27 H 116/58 100 01/03/21 20:41 98.5 F 87 20 108/55 99 01/03/21 20:30 94 H 33 H 111/60 01/03/21 20:11 98.5 F 88 20 109/57 98 01/03/21 20:00 98.8 F 90 90 20 117/56 100 01/03/21 19:41 98.5 F 86 20 104/59 98 01/03/21 19:30 26 H 113/51 98 01/03/21 19:11 98.9 F 87 22 109/60 99 01/03/21 19:00 73 29 H 146/81 98 01/03/21 18:56 80 25 H 146/81 96 01/03/21 18:45 71 14 143/72 97 01/03/21 18:43 72 14 99 01/03/21 18:40 81 28 H 159/72 97 01/03/21 18:34 99.2 F 81 14 141/75 100 01/03/21 14:01 83 25 H 145/65 99 01/03/21 13:31 79 12 133/64 97 01/03/21 13:00 80 17 132/60 98 - Physical Examination General: Other (on the vent) HEENT: Positive: PERRL Cardiac: Positive: Reg Rate and Rhythm - Labs and Meds CBC 01/04/21 Range/Units 04:38 WBC 11.1 H (4.5-11.0) K/mm3 RBC 2.89 L (3.65-5.03) M/mm3 Hgb 8.9 L (11.8-15.2) gm/dl Hct 26.2 L (35.5-45.6) % Plt Count 171 (140-440) K/mm3 Comprehensive Metabolic Panel 01/04/21 Range/Units 04:38 Sodium 138 (137-145) mmol/L Potassium 4.4 (3.6-5.0) mmol/L Chloride 95.5 L (98-107) mmol/L Carbon Dioxide 28 (22-30) mmol/L BUN 87 H (9-20) mg/dL Creatinine 9.7 H (0.8-1.3) mg/dL Glucose 118 H (75-100) mg/dL Calcium 7.7 L (8.4-10.2) mg/dL - Allied health notes Allied health notes reviewed: nursing
--- NOTE | 2021-01-04 13:16 | Progress Note ---
Assessment and Plan POD#12 s/p ex lap with extensive lysis of adhesions and two small bowel resections with primary anastamosis for SBO with necrotic segment small bowel. POD#3 s/p ex lap, resection of perforated anastamosis, washout and abthera wound vac placement. POD#1 s/p ex lap with right hemicolectomy. Septic from bowel leak but showing some signs of clinical improvement. Afebrile and stable. Planning to take back to OR on Saturday with the hope to anastamos ileum to transverse colon and close abdomen. keep NGT to suction. Pt in deep sedation due to open abdomen. Subjective Date of service: 01/04/21 Narrative: no acute events overnight. Pt was on dialysis at the time of evaluation. Objective Vital Signs - 12hr 01/04/21 01/04/21 01/04/21 01:30 02:00 02:18 Temperature Pulse Rate 87 88 90 Pulse Rate [ From Monitor] Respiratory Rate Blood Pressure 115/57 118/62 118/62 O2 Sat by Pulse 99 99 Oximetry O2 Sat by Pulse Oximetry [ Anterior Bilateral Throughout] 01/04/21 01/04/21 01/04/21 02:19 02:30 03:00 Temperature Pulse Rate 90 87 88 Pulse Rate [ From Monitor] Respiratory Rate Blood Pressure 118/62 124/65 129/67 O2 Sat by Pulse 97 Oximetry O2 Sat by Pulse Oximetry [ Anterior Bilateral Throughout] 01/04/21 01/04/21 01/04/21 03:30 04:00 04:30 Temperature Pulse Rate 89 88 88 Pulse Rate [ 88 From Monitor] Respiratory 20 Rate Blood Pressure 132/65 130/66 126/64 O2 Sat by Pulse 100 Oximetry O2 Sat by Pulse Oximetry [ Anterior Bilateral Throughout] 01/04/21 01/04/21 01/04/21 04:59 05:00 05:21 Temperature Pulse Rate 93 H 93 H 90 Pulse Rate [ From Monitor] Respiratory Rate Blood Pressure 134/59 122/63 124/55 O2 Sat by Pulse 100 Oximetry O2 Sat by Pulse Oximetry [ Anterior Bilateral Throughout] 01/04/21 01/04/21 01/04/21 05:22 05:30 06:00 Temperature Pulse Rate 89 89 91 H Pulse Rate [ From Monitor] Respiratory Rate Blood Pressure 125/55 132/70 127/68 O2 Sat by Pulse 99 Oximetry O2 Sat by Pulse Oximetry [ Anterior Bilateral Throughout] 01/04/21 01/04/21 01/04/21 06:30 07:00 07:10 Temperature 99.2 F Pulse Rate 90 89 Pulse Rate [ From Monitor] Respiratory Rate Blood Pressure 134/68 123/66 O2 Sat by Pulse 95 Oximetry O2 Sat by Pulse Oximetry [ Anterior Bilateral Throughout] 01/04/21 01/04/21 01/04/21 07:30 08:00 08:08 Temperature 99.2 F Pulse Rate 89 86 90 Pulse Rate [ 86 From Monitor] Respiratory 25 H Rate Blood Pressure 135/69 134/65 134/68 O2 Sat by Pulse 98 99 Oximetry O2 Sat by Pulse Oximetry [ Anterior Bilateral Throughout] 01/04/21 01/04/21 01/04/21 08:30 09:00 09:30 Temperature Pulse Rate 86 87 86 Pulse Rate [ From Monitor] Respiratory 33 H Rate Blood Pressure 130/65 127/68 135/67 O2 Sat by Pulse 97 98 97 Oximetry O2 Sat by Pulse Oximetry [ Anterior Bilateral Throughout] 01/04/21 01/04/21 01/04/21 10:00 10:30 11:00 Temperature Pulse Rate 85 83 86 Pulse Rate [ From Monitor] Respiratory Rate Blood Pressure 127/67 122/63 116/68 O2 Sat by Pulse 98 96 97 Oximetry O2 Sat by Pulse Oximetry [ Anterior Bilateral Throughout] 01/04/21 01/04/21 01/04/21 11:50 12:00 12:10 Temperature 99.0 F 99.0 F Pulse Rate 85 85 Pulse Rate [ From Monitor] Respiratory 18 Rate Blood Pressure 146/69 146/69 O2 Sat by Pulse Oximetry O2 Sat by Pulse 99 Oximetry [ Anterior Bilateral Throughout] 01/04/21 01/04/21 01/04/21 12:15 12:24 12:30 Temperature Pulse Rate 84 86 84 Pulse Rate [ From Monitor] Respiratory Rate Blood Pressure 142/73 116/68 137/62 O2 Sat by Pulse 97 Oximetry O2 Sat by Pulse Oximetry [ Anterior Bilateral Throughout] 01/04/21 01/04/21 12:45 13:00 Temperature Pulse Rate 84 83 Pulse Rate [ From Monitor] Respiratory Rate Blood Pressure 119/63 128/65 O2 Sat by Pulse Oximetry O2 Sat by Pulse Oximetry [ Anterior Bilateral Throughout] - General physical appearance no distress, no pain, other (was communicating with head nods to questions) - Respiratory normal expansion, normal respiratory effort, other (intubated on vent) - Abdomen soft, distended, other (wound vac in place with sero-sanguinous drainage, NGT with bilious output) - Labs 01/04/21 04:38 01/04/21 04:38 Diabetes panel 01/04/21 Range/Units 04:38 Sodium 138 (137-145) mmol/L Potassium 4.4 (3.6-5.0) mmol/L Chloride 95.5 L (98-107) mmol/L Carbon Dioxide 28 (22-30) mmol/L BUN 87 H (9-20) mg/dL Creatinine 9.7 H (0.8-1.3) mg/dL Glucose 118 H (75-100) mg/dL Calcium 7.7 L (8.4-10.2) mg/dL Calcium panel 01/04/21 Range/Units 04:38 Calcium 7.7 L (8.4-10.2) mg/dL Pituitary panel 01/04/21 Range/Units 04:38 Sodium 138 (137-145) mmol/L Potassium 4.4 (3.6-5.0) mmol/L Chloride 95.5 L (98-107) mmol/L Carbon Dioxide 28 (22-30) mmol/L BUN 87 H (9-20) mg/dL Creatinine 9.7 H (0.8-1.3) mg/dL Glucose 118 H (75-100) mg/dL Calcium 7.7 L (8.4-10.2) mg/dL Adrenal panel 01/04/21 Range/Units 04:38 Sodium 138 (137-145) mmol/L Potassium 4.4 (3.6-5.0) mmol/L Chloride 95.5 L (98-107) mmol/L Carbon Dioxide 28 (22-30) mmol/L BUN 87 H (9-20) mg/dL Creatinine 9.7 H (0.8-1.3) mg/dL Glucose 118 H (75-100) mg/dL Calcium 7.7 L (8.4-10.2) mg/dL
--- NOTE | 2021-01-04 13:37 | Progress Note ---
Assessment and Plan Cultures: 12/22/2020 blood culture: Streptococcus bovis, Prevotella 12/22/2020 PD fluid culture: No growth 12/24/2020 tracheal aspirate culture: No growth 12/24/2020 blood culture: No growth A/P: 60-year-old male with ESRD on PD, Crohn's disease, CHF, gastroesophageal reflux disease was admitted to the hospital with complaints of abdominal pain and fever: #Severe sepsis with shock: Remarkable improvement, off pressors (on Levophed and vasopressin), leukocytosis improving. Secondary to small bowel obstruction/necrotic bowel with associated peritonitis. Status post exploratory laparotomy on 12/23/2020 with extensive lysis, primary anastomosis, found to have necrotic segment of small bowel. #Small bowel obstruction/necrotic bowel: with concern for PD associated peritonitis: Nephrology and general surgery following. Status post exploratory laparotomy on 12/23/2020 with extensive lysis, primary anastomosis, found to have necrotic segment of small bowel. PD catheter remains in place. S/p ex lap, resection of perforated anastamosis, washout and abthera wound vac placement on 01/01. Repeat CT abdomen shows no new abscesses, noted small free fluid. S/p Exploratory laparotomy, Right hemicolectomy, Peritoneal lavage, Partial omentectomy, ABThera wound VAC placement on 01/03/2021. #Streptococcus bovis bacteremia and Prevotella bacteremia: secondary to above. TTE without obvious vegetations. Repeat blood cultures negative. #ESRD: Renally dose antibiotics. Used to be on PD, cath remains in place. Now on HD. #Elevated LFTs: Secondary to sepsis. #Acute respiratory failure: extubated, then re-intubated 12/31/2020. #Anemia: Severe. Recs: -Continue IV Zosyn, renally dosed for Strep bacteremia treatment till 01/06/2021 -On TPN Guarded prognosis will follow Millicent Weber MD [facility] ([facility]) Office [phone] Subjective Date of service: 01/04/21 Principal diagnosis: Ac hypoxemic resp failure; Severe Sepsis; Peritonitis; Acute SBO; ESRD; CHF Interval history: Patient remains intubated, open eyes, sedated on fentanyl, on TPN Objective - Exam Narrative Exam: General appearance: Sedated, intubated open eyes Eyes: anicteric sclerae, moist conjunctivae; no lid-lag; PERRLA HENT: Normocephalic, Atraumatic; normal external ears, nares open, oropharynx limited with endotracheal tube, tongue out with edema Neck: supple, tracheal midline, no JVD Lungs: Coarse breath sounds bilaterally CV: Tachycardic Abdomen: Soft tender diffusely midline surgical wound with Abthera Wound VAC Extremities: no edema, no cyanosis Skin: No rash. Psych: Sedated Neuro: Sedated - Constitutional Vitals: Vital Signs Temp Pulse Resp BP Pulse Ox 99.0 F 82 18 132/65 97 01/04/21 12:00 01/04/21 13:30 01/04/21 11:50 01/04/21 13:30 01/04/21 12:24 Temperature -Last 24 Hours Temperature 99.0 F Temperature 99.0 F Temperature 99.2 F Temperature 99.2 F Temperature 98.5 F Temperature 98.5 F Temperature 98.8 F Temperature 98.5 F Temperature 98.9 F Temperature 99.2 F - Labs CBC & Chem 7: 01/04/21 04:38 01/04/21 04:38 Labs: Abnormal lab results 01/01/21 01/03/21 01/03/21 Range/Units 11:31 18:49 23:37 WBC (4.5-11.0) K/mm3 RBC (3.65-5.03) M/mm3 Hgb (11.8-15.2) gm/dl Hct (35.5-45.6) % RDW (13.2-15.2) % POC ABG pO2 (83-108) mmHg ABG Hemoglobin (12.0-17.5) ABG Sodium (136.0-145.0) mmol/L ABG Glucose (65-95) mg/dL Chloride (98-107) mmol/L BUN (9-20) mg/dL Creatinine (0.8-1.3) mg/dL Glucose (75-100) mg/dL POC Glucose 129 H 140 H (70-105) mg/dL Calcium (8.4-10.2) mg/dL Arterial Blood Glucose (65-95) mg/dL Arterial Blood Ionized Calcium (4.6-5.3) mg/dL Crossmatch See Detail 01/04/21 01/04/2101/04/21 Range/Units 03:22 04:38 04:38 WBC 11.1 H (4.5-11.0) K/mm3 RBC 2.89 L (3.65-5.03) M/mm3 Hgb 8.9 L (11.8-15.2) gm/dl Hct 26.2 L (35.5-45.6) % RDW 16.1 H (13.2-15.2) % POC ABG pO2 82.3 L (83-108) mmHg ABG Hemoglobin 8.9 L (12.0-17.5) ABG Sodium 130.5 L (136.0-145.0) mmol/L ABG Glucose 124 H (65-95) mg/dL Chloride 95.5 L (98-107) mmol/L BUN 87 H (9-20) mg/dL Creatinine 9.7 H (0.8-1.3) mg/dL Glucose 118 H (75-100) mg/dL POC Glucose (70-105) mg/dL Calcium 7.7 L (8.4-10.2) mg/dL Arterial Blood Glucose 124 H (65-95) mg/dL Arterial Blood Ionized Calcium 3.5 L (4.6-5.3) mg/dL Crossmatch 01/04/21 Range/Units 05:39 WBC (4.5-11.0) K/mm3 RBC (3.65-5.03) M/mm3 Hgb (11.8-15.2) gm/dl Hct (35.5-45.6) % RDW (13.2-15.2) % POC ABG pO2 (83-108) mmHg ABG Hemoglobin (12.0-17.5) ABG Sodium (136.0-145.0) mmol/L ABG Glucose (65-95) mg/dL Chloride (98-107) mmol/L BUN (9-20) mg/dL Creatinine (0.8-1.3) mg/dL Glucose (75-100) mg/dL POC Glucose 134 H (70-105) mg/dL Calcium (8.4-10.2) mg/dL Arterial Blood Glucose (65-95) mg/dL Arterial Blood Ionized Calcium (4.6-5.3) mg/dL Crossmatch
--- NOTE | 2021-01-04 15:12 | Progress Note ---
Assessment and Plan Assessment and plan: This is a 60 YO Male with ESRD on PD, GERD, Crohn's Disease, Nicotine Dependence, HTN, Systolic CHF(EF 35%) who presented to the emergency department on 12/22 with complaints of abdominal pain which began shortly after eating fast food rated 10/10 which is periumbilical, constant, associated with fever, nausea and multiple sites of vomiting and self-reported inability to undergo PD. In the emergency room patient underwent a CT scan of the abdomen/pelvis which revealed evidence of partial small bowel obstruction, symptoms were consistent with bacterial peritonitis. Patient was admitted to the hospital service with sepsis, peritonitis, and small bowel obstruction with consults to general surgery, nephrology, infectious disease and [facility]. 12/23. Patient had temperature 101.2 F, tachycardia and elevated lactic acid on admission. Meet sepsis criteria. Started on IV antibiotics. ID has been co nsulted. Surgery consulted this a.m.-advised laparoscopy. He remains on NG tube connected to suction. 12/24. Patient was noted to have peritonitis yesterday and patient undergoing exploratory laparotomy. Patient remained intubated after procedure and is in ICU. Now on broad-spectrum antibiotics. ID on board. 12/25. Remains mechanically ventilated and sedated. Temp 103 Fahrenheit. Antibiotics broadened-ID added fluconazole and Flagyl. Blood cultures ordered. Plan to repeat CT abdomen tomorrow if not better. Surgery following. 12/26: Patient remains on mechanical ventilation on CMV tidal line 550, rate of 14, PEEP of 8 and 30% FiO2 and sedated on fentanyl 4 micrograms. Today we will remove his Jeffery and CCM dropped his rate controlled him on CPAP. We will trend CBC given recent drop in H/H. 12/27: Patient remains intubated on CMV tidal volume 550, rate 12, PEEP 8 on 30% FiO2 at the time my examination. Patient's TPN will be changed to PPN. Patient's fentanyl drip will be changed to IV push fentanyl and have a permacath placed today and midline. Patient was placed on a spontaneous breathing trial was switched back to CMV prior to procedure. 12/28: Patient on fentanyl but awake and follows commands. At the time of my examination he was on a CPAP trial and is scheduled to receive HD today. s/o permacath and PICC placement with vascular yesterday. His blood culture grew P revotella and addition to Streptococcus bovis. This evening Dr. Spicer attempted to extubate the patient and his heart rate went to the 180s. Stat EKG obtained and cardiology consulted. 12/29: Patient was started on amiodarone IV for A. fib RVR yesterday and today he is more rate controlled into the 70s and 80s. Patient was extubated yesterday and is currently on Ventimask. Patient will be transferred to [facility]. Patient continues to be n.p.o. with TPN and NG tube to [facility]. He is hypokalemic today which was repleted. 12/30; patient was on IV amiodarone for treatment with RVR, rate is controlled. Patient was off oxygen. patient is n.p.o. and on TPN. Surgery is following the patient. 12/31: Patient was intubated overnight for respiratory distress and this morning on examination he was on assist control tidal volume 450, rate 20, PEEP 6, 100% FiO2 and RT was getting a ABG to adjust vent settings. Patient had a acute bump in WBC and per ID recommendations we will obtain a CT abdomen/pelvis if leukocytosis persist. Patient is on TPN and sedated with Levophed. Patient is also on vasopressor support with Levophed. Per surgery his ileus is resolving however will maintain OGT to LIWS. 01/01: Patient was started on a vasopressin yesterday late evening. This morning patient is on 20 mcg of Levophed and 0.03 vasopressin and sedated on 20 mcg of propofol. Patient WBC increased today and he is hypokalemic. We will treat hyperkalemia. Patient had a CT chest and abdomen/pelvis pending. The time examination total of 450, rate 20, PEEP of 6 and 35 percent FiO2. Per RN, Dr Pollock has stated that the patient will be returning to the OR today for likely anastomosis seen on CT abdomen/pelvis. 01/02: Patient noted, WBC improving, but noted to have anemia, will transfuse additional unit of Blood and repeat H/H. continue supportive care. 01/03: Continue to wean pressors, ABX PER ID, patient to return to OR today for washout and possible closure, CONTINUE TPN 01/04: Continues to show some improvement. Today is POD#12 s/p ex lap with extensive lysis of adhesions and two small bowel resections with primary anastamosis for SBO with necrotic segment small bowel. POD#3 s/p ex lap, resection of perforated anastamosis, washout and abthera wound vac placement. POD#1 s/p ex lap with right hemicolectomy. Surgery planning to take back to the OR on Saturday with the hope to anastamos ileum to transverse colon and close abdomen. keep NGT to suction. Pt in deep sedation due to open abdomen. Per ID -Continue IV Zosyn, renally dosed for Strep bacteremia treatment till 01/06/2021 -On TPN Severe Sepsis with shock Streptococcus bovis bacteremia/Prevotella bacteremia Gwendolyn albicans tracheal aspirate Small bowel obstruction/necrotic bowel s/p ex lap with extensive lysis of adhesions, 2 small bowel resections with primary anastomosis Acute hypoxic respiratory failure Postoperative ileus Atrial fibrillation with RVR Hyperkalemia Gwendolyn albicans in tracheal aspirate from 12/24 ESRD on PD, PermCath to be placed Transaminitis Systolic CHF(EF 35%) Crohn's disease Hypertension -CCM, surgery, infectious disease, nephrology, vascular surgery, cardiology consulted, appreciate recommendations -S/p ex lap with extensive expectations, 2 small bowel resections with primary anastomosis with surgery on 12/23 -s/p PICC and Permacath placement with vascular surgery on 12/27 -Extubated on 12/28, reintubated 12/31 for respiratory distress -Vasopressor support with Levophed and vasopressin -Transitioned to HD from PD -HD per nephro -NPO -PPN -NGT to LIS -IV antibiotics -12/29 echocardiogram shows moderate concentric LVH, small pericardial effusion, transmitral Doppler flow pattern is grade 1 abnormal relaxation pattern, left- ventricular systolic function normal, LVEF 50 to 55%, no wall motion abnormalities. -01/01 CT abdomen/pelvis shows small pericardial effusion, mild coronary artery atherosclerotic calcification, small bilateral pleural effusions with associated volume loss, no convincing evidence of bowel obstruction or inflammation, postoperative changes from interval/recent midline laparotomy with a moderate amount of free fluid throughout the abdomen, small amount of dependent free air presumably postoperative -Tobacco abuse cessation counseling -Trend CBC, BMP DVT/GI prophylaxis: PPI, heparin subcu, SCDs to bilateral lower extremities while in bed Disposition: ICU Critical care statement The high probability of a clinically significant, sudden or life threatening deterioration of the [pulmonary, cardiac, neuro, renal] system(s) required my full and direct attention, intervention and personal management. The aggregate critical care time was [35] minutes. This time is in addition to time spent performing reported procedures but includes the following: [x] Data Review and interpretation [x] Patient assessment and monitoring of vital signs [x] Documentation [x] Medication orders and management History Interval history: This is a 60-year-old male with ESRD on peritoneal dialysis, Crohn's, hypertension, systolic CHF (EF 35%) who was admitted with sepsis, peritonitis, small bowel obstruction and now has gram-positive cocci bacteremia. Patient seen and examined, resting comfortably. Continues to show some improvement Hospitalist Physical - Physical exam Narrative exam: General appearance: Present: no acute distress, other (Sedated on mechanical ventilation) - EENT Eyes: Present: PERRL ENT: poor dentition - Neck Neck: Absent: masses or JVD, cervical LAD - Respiratory Respiratory effort: normal Respiratory: bilateral: diminished - Cardiovascular Rhythm: irregularly irregular Heart Sounds: Present: S1 & S2. Absent: systolic murmur, diastolic murmur - Extremities Extremities: no ischemia, pulses intact, pulses symmetrical, No edema, normal temperature, normal color Peripheral Pulses: within normal limits - Abdominal General gastrointestinal: distended, abdomen dressing, rigid, absent bowel sounds, PD catheter in place - Integumentary Integumentary: Present: warm, dry - Neurologic Neurologic: other (sedated and intubated) - Allied Health Allied health notes reviewed: nursing - Constitutional Vitals: Temp Pulse Resp BP Pulse Ox 99.0 F 81 18 118/64 99 01/04/21 12:00 01/04/21 15:01 01/04/21 12:00 01/04/21 15:01 01/04/21 14:30 General appearance: Present: no acute distress, other (Sedated on mechanical ventilation) HEART Score - HEART Score Troponin: Troponin T 0.021 ng/mL (0.00-0.029) 12/22/20 14:38 Results - Labs CBC & Chem 7: 01/04/21 04:38 01/04/21 04:38 Labs: Laboratory Last Values WBC 11.1 K/mm3 (4.5-11.0) H 01/04/21 04:38 RBC 2.89 M/mm3 (3.65-5.03) L 01/04/21 04:38 Hgb 8.9 gm/dl (11.8-15.2) L 01/04/21 04:38 Hct 26.2 % (35.5-45.6) L 01/04/21 04:38 MCV 91 fl (84-94) 01/04/21 04:38 MCH 31 pg (28-32) 01/04/21 04:38 MCHC 34 % (32-34) 01/04/21 04:38 RDW 16.1 % (13.2-15.2) H 01/04/21 04:38 Plt Count 171 K/mm3 (140-440) 01/04/21 04:38 Lymph % (Auto) 6.5 % (13.4-35.0) L 12/28/20 05:40 [place] % (Auto) 16.7 % (0.0-7.3) H 12/28/20 05:40 Eos % (Auto) 3.2 % (0.0-4.3) 12/28/20 05:40 Baso % (Auto) 1.0 % (0.0-1.8) 12/28/20 05:40 Lymph # (Auto) 0.3 K/mm3 (1.2-5.4) L 12/28/20 05:40 [place] # (Auto) 0.7 K/mm3 (0.0-0.8) 12/28/20 05:40 Eos # (Auto) 0.1 K/mm3 (0.0-0.4) 12/28/20 05:40 Baso # (Auto) 0.0 K/mm3 (0.0-0.1) 12/28/20 05:40 Add Manual Diff Complete 01/01/21 17:58 Total Counted 100 01/01/21 17:58 Seg Neutrophils % 71.1 % (40.0-70.0) H 12/28/20 05:40 Seg Neuts % (Manual) 84.0 % (40.0-70.0) H 01/01/21 17:58 Band Neutrophils % 1.0 % 12/29/20 05:16 Lymphocytes % (Manual) 4.0 % (13.4-35.0) L 01/01/21 17:58 Reactive Lymphs % (Man) 1.0 % 12/29/20 05:16 Monocytes % (Manual) 12.0 % (0.0-7.3) H 01/01/21 17:58 Eosinophils % (Manual) 2.0 % (0.0-4.3) 12/29/20 05:16 Metamyelocytes % 2.0 % 12/29/20 05:16 Nucleated RBC % Not Reportable 01/01/21 17:58 Seg Neutrophils # 3.1 K/mm3 (1.8-7.7) 12/28/20 05:40 Seg Neutrophils # Man 22.6 K/mm3 (1.8-7.7) H 01/01/21 17:58 Band Neutrophils # 0.0 K/mm3 01/01/21 17:58 Lymphocytes # (Manual) 1.1 K/mm3 (1.2-5.4) L 01/01/21 17:58 Abs React Lymphs (Man) 0.0 K/mm3 01/01/21 17:58 Monocytes # (Manual) 3.2 K/mm3 (0.0-0.8) H 01/01/21 17:58 Eosinophils # (Manual) 0.0 K/mm3 (0.0-0.4) 01/01/21 17:58 Basophils # (Manual) 0.0 K/mm3 (0.0-0.1) 01/01/21 17:58 Metamyelocytes # 0.0 K/mm3 01/01/21 17:58 Myelocytes # 0.0 K/mm3 01/01/21 17:58 Promyelocytes # 0.0 K/mm3 01/01/21 17:58 Blast Cells # 0.0 K/mm3 01/01/21 17:58 WBC Morphology Not Reportable 01/01/21 17:58 Hypersegmented Neuts Not Reportable 01/01/21 17:58 Hyposegmented Neuts Not Reportable 01/01/21 17:58 Hypogranular Neuts Not Reportable 01/01/21 17:58 Smudge Cells Not Reportable 01/01/21 17:58 Toxic Granulation Not Reportable 01/01/21 17:58 Toxic Vacuolation Not Reportable 01/01/21 17:58 Dohle Bodies Not Reportable 01/01/21 17:58 Pelger-Huet Anomaly Not Reportable 01/01/21 17:58 Lamar Rods Not Reportable 01/01/21 17:58 Platelet Estimate Not Reportable 01/01/21 17:58 Clumped Platelets Not Reportable 01/01/21 17:58 Plt Clumps, EDTA Not Reportable 01/01/21 17:58 Large Platelets Not Reportable 01/01/21 17:58 Giant Platelets Not Reportable 01/01/21 17:58 Platelet Satelliting Not Reportable 01/01/21 17:58 Plt Morphology Comment Not Reportable 01/01/21 17:58 RBC Morphology Normal 01/01/21 17:58 Dimorphic RBCs Not Reportable 01/01/21 17:58 Polychromasia Not Reportable 01/01/21 17:58 Hypochromasia Not Reportable 01/01/21 17:58 Poikilocytosis Not Reportable 01/01/21 17:58 Anisocytosis Not Reportable 01/01/21 17:58 Microcytosis Not Reportable 01/01/21 17:58 Macrocytosis Not Reportable 01/01/21 17:58 Spherocytes Not Reportable 01/01/21 17:58 Pappenheimer Bodies Not Reportable 01/01/21 17:58 Sickle Cells Not Reportable 01/01/21 17:58 Target Cells Not Reportable 01/01/21 17:58 Tear Drop Cells Not Reportable 01/01/21 17:58 Ovalocytes Not Reportable 01/01/21 17:58 Helmet Cells Not Reportable 01/01/21 17:58 [place]ankins Bodies Not Reportable 01/01/21 17:58 [place] Rings Not Reportable 01/01/21 17:58 [place] Cells Not Reportable 01/01/21 17:58 Bite Cells Not Reportable 01/01/21 17:58 Crenated Cell Not Reportable 01/01/21 17:58 Elliptocytes Not Reportable 01/01/21 17:58 Acanthocytes (Spur) Not Reportable 01/01/21 17:58 Rouleaux Not Reportable 01/01/21 17:58 Hemoglobin C Crystals Not Reportable 01/01/21 17:58 Schistocytes Not Reportable 01/01/21 17:58 Malaria parasites Not Reportable 01/01/21 17:58 Lucas Bodies Not Reportable 01/01/21 17:58 Hem Pathologist Commnt No 01/01/21 17:58 PT 16.9 Sec. (12.2-14.9) H 01/01/21 12:45 INR 1.39 (0.87-1.13) H 01/01/21 12:45 APTT 25.1 Sec. (24.2-36.6) 12/22/20 14:38 ABG pH 7.371 (7.320-7.450) 01/04/21 03:22 POC ABG pCO2 45.9 mmHg (32.0-48.0) 01/04/21 03:22 ABG pCO2 33.9 mm Hg 12/31/20 09:38 POC ABG pO2 82.3 mmHg (83-108) L 01/04/21 03:22 ABG pO2 354.0 mm Hg (80.0-90.0) H 12/31/20 09:38 POC ABG HCO3 26.0 01/04/21 03:22 ABG HCO3 22.0 mmol/L (20.0-26.0) 12/31/20 09:38 ABG O2 Saturation 95.6 (0-100) 01/04/21 03:22 ABG O2 Content 13.5 (0.0-44) 12/31/20 09:38 POC ABG Base Excess 0.5 01/04/21 03:22 ABG Base Excess -1.9 mmol/L (-2.0-3.0) 12/31/20 09:38 ABG Hemoglobin 8.9 (12.0-17.5) L 01/04/21 03:22 ABG Oxyhemoglobin 94.2 (94-98) 01/04/21 03:22 ABG Carboxyhemoglobin 1.0 % (0.0-5.0) 12/31/20 09:38 ABG Methemoglobin 0.3 (0.0-1.5) 01/04/21 03:22 ABG Sodium 130.5 mmol/L (136.0-145.0) L 01/04/21 03:22 ABG Potassium 3.9 mmol/L (3.40-4.50) 01/04/21 03:22 ABG Chloride 100.0 mmol/L (98-107) 01/04/21 03:22 ABG Glucose 124 mg/dL (65-95) H 01/04/21 03:22 Oxyhemoglobin 97.9 % (95.0-99.0) 12/31/20 09:38 Carboxyhemoglobin 1.2 (0.5-1.5) 01/04/21 03:22 FiO2 100 % 12/31/20 09:38 FiO2 % 40.0 01/04/21 03:22 Sodium 138 mmol/L (137-145) 01/04/21 04:38 Potassium 4.4 mmol/L (3.6-5.0) 01/04/21 04:38 Chloride 95.5 mmol/L (98-107) L 01/04/21 04:38 Carbon Dioxide 28 mmol/L (22-30) 01/04/21 04:38 Anion Gap 19 mmol/L 01/04/21 04:38 BUN 87 mg/dL (9-20) H 01/04/21 04:38 Creatinine 9.7 mg/dL (0.8-1.3) H 01/04/21 04:38 Estimated GFR 7 ml/min 01/04/21 04:38 BUN/Creatinine Ratio 9 % 01/04/21 04:38 Glucose 118 mg/dL (75-100) H 01/04/21 04:38 POC Glucose 134 mg/dL (70-105) H 01/04/21 05:39 Lactic Acid 1.50 mmol/L (0.7-2.0) 01/02/21 18:00 Calcium 7.7 mg/dL (8.4-10.2) L 01/04/21 04:38 Phosphorus 4.80 mg/dL (2.5-4.5) H D 01/03/21 04:37 Magnesium 1.80 mg/dL (1.7-2.3) 01/03/21 04:37 Total Bilirubin 2.10 mg/dL (0.1-1.2) H 01/01/21 17:58 AST 223 units/L (5-40) H 01/01/21 17:58 ALT 100 units/L (7-56) H 01/01/21 17:58 Alkaline Phosphatase 206 units/L (35-129) H 01/01/21 17:58 Ammonia 30.0 umol/L (25-60) 12/22/20 14:38 Troponin T 0.021 ng/mL (0.00-0.029) 12/22/20 14:38 Total Protein 4.8 g/dL (6.3-8.2) L 01/01/21 17:58 Albumin 1.9 g/dL (3.9-5) L 01/01/21 17:58 Albumin/Globulin Ratio 0.7 % 01/01/21 17:58 Triglycerides 155 mg/dL (2-149) H 12/30/20 09:00 Lipase 41 units/L (13-60) 12/22/20 14:38 Procalcitonin > 200.00 ng/mL (<0.15) 12/24/20 15:06 TSH 1.470 mlU/mL (0.270-4.200) 12/28/20 19:44 Arterial Blood Glucose 124 mg/dL (65-95) H 01/04/21 03:22 Arterial Blood Ionized Calcium 3.5 mg/dL (4.6-5.3) L 01/04/21 03:22 Urine Color Yellow (Yellow) 12/22/20 18:53 Urine Turbidity Clear (Clear) 12/22/20 18:53 Urine pH 7.0 (5.0-7.0) 12/22/20 18:53 Ur Specific [place] 1.012 (1.003-1.030) 12/22/20 18:53 Urine Protein >500 mg/dL (Negative) 12/22/20 18:53 Urine Glucose (UA) Neg mg/dL (Negative) 12/22/20 18:53 Urine Ketones Neg mg/dL (Negative) 12/22/20 18:53 Urine Blood Neg (Negative) 12/22/20 18:53 Urine Nitrite Neg (Negative) 12/22/20 18:53 Urine Bilirubin Neg (Negative) 12/22/20 18:53 Urine Urobilinogen < 2.0 mg/dL (<2.0) 12/22/20 18:53 Ur Leukocyte Esterase Neg (Negative) 12/22/20 18:53 Urine WBC (Auto) < 1.0 /HPF (0.0-6.0) 12/22/20 18:53 Urine RBC (Auto) 1.0 /HPF (0.0-6.0) 12/22/20 18:53 Fluid Type Dialysate 12/22/20 Unknown Fluid Color Colorless 12/22/20 Unknown Fluid Appearance Cloudy 12/22/20 Unknown Fluid WBC 208 /mm3 12/22/20 Unknown Fluid RBC 45 /mm3 12/22/20 Unknown Fluid Seg Neutrophils 82.0 % 12/22/20 Unknown Fluid Lymphocytes 11.0 % 12/22/20 Unknown Fluid Reactive Lymphs 0 % 12/22/20 Unknown Fluid Monocytes 7.0 % 12/22/20 Unknown Fluid Eosinophils 0 % 12/22/20 Unknown Fluid Basophils 0 % 12/22/20 Unknown Random Vancomycin 13.7 ug/mL (0-40.0) 12/26/20 Unknown Hepatitis A IgM Ab Non-reactive (NonReactive) 12/23/20 11:38 Hep Bs Antigen Non-reactive (Negative) 12/23/20 11:38 Hep B Core IgM Ab Non-reactive (NonReactive) 12/23/20 11:38 Hepatitis C Antibody Non-reactive (NonReactive) 12/23/20 11:38 Blood Type A POSITIVE 01/01/21 11:31 Antibody Screen Negative 01/01/21 11:31 Crossmatch See Detail 01/01/21 11:31 Jeffery/IV: Voiding Method Incontinent Active Medications - Current Medications Current Medications: Generic Name Dose Route Start Last Admin Trade Name Freq PRN Reason Stop Dose Admin Acetaminophen 650 mg 12/31/20 15:30 12/31/20 15:13 Acetaminophen 650 Mg Rect Supp [place] 650 mg Q6H PRN Administration Non Cardiac Pain or Temp>100.5 Albuterol 2.5 mg 12/22/20 19:42 Albuterol 2.5 Mg/3 Ml Nebu IH Q4HRT PRN Shortness Of Breath Digoxin 0.125 mg 12/31/20 10:00 01/04/21 09:12 Digoxin 0.5 Mg/2 Ml Inj IV Not Given Q48HR THOMAS Famotidine 10 mg 12/24/20 13:00 01/04/21 10:10 Famotidine 20 Mg/2 Ml Inj IV 10 mg BID THOMAS Administration Fentanyl 50 mcg 12/24/20 11:35 01/01/21 11:28 Fentanyl 100 Mcg/2 Ml Inj IV 50 mcg Q10MIN PRN Administration ANALGESIA Haloperidol Lactate 5 mg 12/29/20 14:16 12/31/20 00:19 Haloperidol Lactate 5 Mg/1 Ml Inj IV 5 mg Q12H PRN Administration Agitation Heparin Sodium (Porcine) 5,000 unit 12/24/20 10:00 01/04/21 10:07 Heparin 5,000 Unit/1 Ml Vial SUB-Q 5,000 unit Q12HR THOMAS Administration Hydralazine HCl 10 mg 12/30/20 12:00 01/04/21 14:51 Hydralazine 20 Mg/1 Ml Inj IV Not Given Q4HR THOMAS Hydrophilic Ointment 1 applic 12/31/20 06:39 Lip Therapy Vaseline TP Q2HR PRN Dry Lips Sodium Chloride 100 mls @ 999 mls/hr 12/23/20 11:03 Nacl 0.9% IV RYLAND PRN Hypotension Fentanyl Citrate 2,000 mcg in 100 mls @ 4.725 mls/hr 12/31/20 08:00 01/04/21 11:30 Fentanyl Drip Premix IV 2 mcg/kg/hr TITR THOMAS 9.45 mls/hr Titration Protocol 1 MCG/KG/HR NORepinephrine/NS 8 MG-250 ML 8 mg in 250 mls @ 3.75 mls/hr 12/31/20 09:00 01/03/21 08:30 Norepinephrine/Ns 8 Mg-250 Ml (Double Conc) IV 0 mcg/min TITRATE THOMAS 0 mls/hr Titration Protocol 2 MCG/MIN Piperacillin Sod/Tazobactam Sod 2.25 gm in 50 mls @ 100 mls/hr 12/31/20 12:00 01/04/21 04:50 Zosyn/Ns 2.25 Gm/50ml IV 01/06/21 20:29 Infused Q8H THOMAS Infusion Protocol Vasopressin 20 unit/ Sodium 101 mls @ 9.09 mls/hr 12/31/20 21:00 01/02/21 21:13 Chloride IV 0 units/min TITR THOMAS 0 mls/hr Titration Protocol 0.03 UNITS/MIN Phenylephrine HCl 100 mg/ 100 mls @ 3 mls/hr 12/31/20 23:45 01/01/21 18:30 Sodium Chloride IV 0 mcg/min TITR THOMAS 0 mls/hr Titration Protocol 50 MCG/MIN Amino Acids/Electrolytes/Dextrose 2,016 mls @ 84 mls/hr 01/03/21 20:00 01/03/21 20:03 Tpn Adult IV 84 mls/hr DAILY@2000 THOMAS Administration Protocol Sodium Chloride 500 mls @ 0 mls/hr 01/03/21 17:03 Nacl 0.9% 500 Ml IV ONCE [facility]1983 As Directed Amino Acids/Electrolytes/Dextrose 2,016 mls @ 84 mls/hr 01/04/21 20:00 Tpn Adult IV 01/05/21 19:59 DAILY@1999 [facility] Protocol Fat Emulsion Intravenous 250 mls @ 21 mls/hr 01/04/21 20:00 Intralipid 20% IV 01/05/21 07:59 DAILY@1999 [facility] Insulin Glargine 10 units 01/03/21 10:00 01/04/21 10:09 Insulin Glargine 100 Units/Ml SUB-Q 10 units DAILY [facility] Administration Insulin Human Lispro 0 unit 01/03/21 12:00 01/04/21 14:51 Insulin Lispro 100 Unit/Ml SUB-Q Not Given Q6HR [facility] Protocol Metoprolol Tartrate 5 mg 12/30/20 12:00 01/04/21 14:51 Metoprolol Tartrate 5 Mg/5 Ml Inj IV Not Given Q4HR [facility]1983 Multi-Ingred Cream/Lotion/Oil/Oint 1 applic 12/31/20 06:39 Mineral Oil/Petrolatum, White Ophth Oint 3.5 Gm OU Q4HR PRN Dry Eye(s) Sodium Chloride 10 ml 12/22/20 22:00 01/04/21 10:10 Sodium Chloride 0.9% 10 Ml Flush Syringe IV 10 ml BID THOMAS Administration Sodium Chloride 10 ml 12/22/20 19:42 Sodium Chloride 0.9% 10 Ml Flush Syringe IV PRN PRN LINE FLUSH Nutrition/Malnutrition Assess - Dietary Evaluation Nutrition/Malnutrition Findings: Nutrition Notes Start: 12/24/20 12:36 Freq: Status: Active Protocol: Document 01/04/21 13:25 AL (Rec: 01/04/21 13:33 AL [id number]) Co-Sign 01/04/21 13:25 LP Nutrition Notes Initial or Follow up Reassessment Current Diagnosis CKD (stage V CKD),Sepsis, Hypertension,Heart Failure Other Pertinent Diagnosis bacterial peritonitis, on HD MWF/PRN, SBO, Crohns disease, Anemia Current Diet TPN at 84 ml/hr Labs/Tests BUN 87 Cr 9.7 Pertinent Medications Reviewed Height 5 ft 7 in Weight 94.5 kg [place] Body Weight (kg) 67.27 BMI 32.6 Weight Status Obese Subjective/Other Information TPN Day 10. Pt stilll intubated. Pt had an exploratory laparatomy and hemicolectomy yesterday. Will increase dextrose and protein to help meet needs. Percent of energy/protein needs met: 76%/89% Burn Absent Trauma Absent Difficulty In Swallowing Current % PO Negligible Minimum of two criteria No physical signs of malnutrition Energy Intake (non-severe) <75% Estimated Energy Requirement >7 days #1 Nutrition Diagnosis Inadequate oral intake Diagnosis Progress(for reassessment Continues documentation) Is patient on ventilator? Yes Is Patient Ambulatory and/or Out of Bed No REE-([facility]-confined to bed) 9.168 Kcal/Kg value to use for calculation 21 Approximate Energy Requirements Using 1985 kcal/Kg Calculation Used for Recommendations Kcal/kg Additional Notes Protein needs: >135 g (>2g/kg IBW) fluid needs: 1 mL/kcal or per MD Nutrition Intervention Change Diet Order: Continue CPN Nutrition Support: CPN at 84 ml/hr AA 6.7% Dextrose 17% Lipid: 50 g MVI Kcal 2,300 Protein (gm) 135 Carbohydrates (gm) 350 Fat (gm) 50 Fluid (mL) 2,266 Goal #1 Meet kcal and protein needs as best as possible via CPN Anticipated Discharge Needs: unable to determine at this time Follow-Up By: 01/05/21 Additional Comments Labs in AM: KAREN
--- NOTE | 2021-01-04 15:59 | Progress Note ---
Assessment and Plan Acute hypoxemic respiratory failure, on mechanical ventilatory support. Severe Sepsis Peritonitis Acute small-bowel obstruction with tissue necrosis. End-stage renal disease, on dialysis. Hypertension. Crohn's disease. Gastroesophageal reflux disease. Heart failure with reduced ejection fraction. Hyperkalemia. Anemia that is normocytic. Lactic acidosis. Oropharyngeal dysphagia - tentatively back to OR on saturday - s/p HD/UF today with 1kg pulled - keep set rate at 14/min - continue total parenteral nutrition - wean vasopressors for target MAP > 65 mmHg - continue wound care per RN/WCN - continue care as below otherwise; - continue Daily SAT and SBT assessment as tolerated - continue to wean supplemental oxygen for target O2 sat's > 92% acutely - VAP bundle addressed - continue lung protective strategies - continue bronchodilators with pulmonary hygiene per RT - wean per pulmonary driven protocols otherwise - HD/UF per nephrology prescription for toxin and volume control - avoid nephrotoxins, renally dose all medications - continue accuchecks with glycemic control per SSI (While critically ill target blood glucose of 140-180 mg/dL; avoid hypoglycemia) - sedation prn for target RASS 0 to -1 - continue to avoid benzodiazepine's, reduce the possibility of delirium - complete AB's per ID rec's - prn analgesia per CPOT score - Maintenance of sleep-wake cycle, avoid delirium - enteral nutritional support at goal rate as tolerated (once cleared by surgeon) - G.I. & VTE prophylaxis - PT/OT/ROM exercises - continue mobility protocols for pressure ulcer prophylaxis - Monitor hemodynamics closely - continue other care per attending / other consultants - discharge planning ongoing concurrently .... Re-evaluate in am & prn CONDITION: CRITICAL PROGNOSIS: GUARDED CODE STATUS: FULL CODE The high probability of a clinically significant, sudden or life-threatening deterioration of the [respiratory, cardiovascular, GI & neurologic] system(s) required my full and direct attention, intervention and personal management. The aggregate critical care time was [32] minutes without overlap. Time includes spent on; [x] Data Review and interpretation [x] Patient assessment and monitoring of vital signs [x] Documentation [x] Medication orders and management Subjective Date of service: 01/04/21 Principal diagnosis: Ac hypoxemic resp failure; Severe Sepsis; Peritonitis; Acute SBO; ESRD; CHF Interval history: Patient is seen today for: Ac hypoxemic resp failure; Severe Sepsis; Peritonitis; Acute SBO; ESRD on Dialysis; HTN; Crohn's disease; HFrEF Seen and examined at bedside; 24hour events reviewed; nursing and respiratory care staff consulted; no adverse overnight events reported to me; resting in bed; went to OR yesterday for (Exploratory laparotomy, 2. Right hemicolectomy, 3. Peritoneal lavage, 4. Partial omentectomy, 5. ABThera wound VAC placement); remains on MVS and hemodynamically stable; No N/V/F/C Objective Vital Signs - 12hr 01/04/21 01/04/21 01/04/21 04:00 04:30 04:59 Temperature Pulse Rate 88 88 93 H Pulse Rate [ 88 From Monitor] Respiratory 20 Rate Blood Pressure 130/66 126/64 134/59 O2 Sat by Pulse 100 100 Oximetry O2 Sat by Pulse Oximetry [ Anterior Bilateral Throughout] 01/04/21 01/04/21 01/04/21 05:00 05:21 05:22 Temperature Pulse Rate 93 H 90 89 Pulse Rate [ From Monitor] Respiratory Rate Blood Pressure 122/63 124/55 125/55 O2 Sat by Pulse Oximetry O2 Sat by Pulse Oximetry [ Anterior Bilateral Throughout] 01/04/21 01/04/21 01/04/21 05:30 06:00 06:30 Temperature Pulse Rate 89 91 H 90 Pulse Rate [ From Monitor] Respiratory Rate Blood Pressure 132/70 127/68 134/68 O2 Sat by Pulse 99 Oximetry O2 Sat by Pulse Oximetry [ Anterior Bilateral Throughout] 01/04/21 01/04/21 01/04/21 07:00 07:10 07:30 Temperature 99.2 F Pulse Rate 89 89 Pulse Rate [ From Monitor] Respiratory Rate Blood Pressure 123/66 135/69 O2 Sat by Pulse 95 Oximetry O2 Sat by Pulse Oximetry [ Anterior Bilateral Throughout] 01/04/21 01/04/21 01/04/21 08:00 08:08 08:30 Temperature 99.2 F Pulse Rate 88 90 86 Pulse Rate [ 86 From Monitor] Respiratory 25 H 33 H Rate Blood Pressure 134/65 134/68 130/65 O2 Sat by Pulse 98 99 97 Oximetry O2 Sat by Pulse Oximetry [ Anterior Bilateral Throughout] 01/04/21 01/04/21 01/04/21 09:00 09:30 10:00 Temperature Pulse Rate 87 86 85 Pulse Rate [ From Monitor] Respiratory Rate Blood Pressure 127/68 135/67 127/67 O2 Sat by Pulse 98 97 98 Oximetry O2 Sat by Pulse Oximetry [ Anterior Bilateral Throughout] 01/04/21 01/04/21 01/04/21 10:30 11:00 11:30 Temperature Pulse Rate 83 86 83 Pulse Rate [ From Monitor] Respiratory Rate Blood Pressure 122/63 116/68 133/67 O2 Sat by Pulse 96 97 99 Oximetry O2 Sat by Pulse Oximetry [ Anterior Bilateral Throughout] 01/04/21 01/04/21 01/04/21 11:50 12:00 12:10 Temperature 99.0 F 99.0 F Pulse Rate 85 85 85 Pulse Rate [ 85 From Monitor] Respiratory 18 18 Rate Blood Pressure 146/69 146/69 146/69 O2 Sat by Pulse 97 Oximetry O2 Sat by Pulse 99 Oximetry [ Anterior Bilateral Throughout] 01/04/21 01/04/21 01/04/21 12:15 12:24 12:30 Temperature Pulse Rate 84 86 81 Pulse Rate [ From Monitor] Respiratory Rate Blood Pressure 142/73 116/68 137/62 O2 Sat by Pulse 97 99 Oximetry O2 Sat by Pulse Oximetry [ Anterior Bilateral Throughout] 01/04/21 01/04/21 01/04/21 12:45 13:00 13:15 Temperature Pulse Rate 84 82 84 Pulse Rate [ From Monitor] Respiratory Rate Blood Pressure 119/63 128/65 122/66 O2 Sat by Pulse 99 Oximetry O2 Sat by Pulse Oximetry [ Anterior Bilateral Throughout] 01/04/21 01/04/21 01/04/21 13:30 13:45 14:00 Temperature Pulse Rate 82 86 80 Pulse Rate [ From Monitor] Respiratory Rate Blood Pressure 132/65 113/66 117/64 O2 Sat by Pulse 99 99 Oximetry O2 Sat by Pulse Oximetry [ Anterior Bilateral Throughout] 01/04/21 01/04/21 01/04/21 14:02 14:15 14:30 Temperature Pulse Rate 80 83 85 Pulse Rate [ From Monitor] Respiratory Rate Blood Pressure 117/64 121/64 121/66 O2 Sat by Pulse 99 Oximetry O2 Sat by Pulse Oximetry [ Anterior Bilateral Throughout] 01/04/21 01/04/21 01/04/21 14:45 15:01 15:15 Temperature Pulse Rate 84 81 85 Pulse Rate [ From Monitor] Respiratory Rate Blood Pressure 121/69 118/64 130/67 O2 Sat by Pulse Oximetry O2 Sat by Pulse Oximetry [ Anterior Bilateral Throughout] 01/04/21 01/04/21 01/04/21 15:28 15:30 15:40 Temperature Pulse Rate 85 83 80 Pulse Rate [ From Monitor] Respiratory Rate Blood Pressure 130/67 127/66 133/64 O2 Sat by Pulse 99 Oximetry O2 Sat by Pulse Oximetry [ Anterior Bilateral Throughout] Constitutional: no acute distress, other (elderly male riding set rate on MVS) Eyes: non-icteric ENT: oropharynx moist, other (ETT 24 cm LEEANN) Neck: supple, no lymphadenopathy, no JVD Effort: normal Ascultation: Bilateral: diminished breath sounds, rales Percussion: Bilateral: not dull Cardiovascular: regular rate and rhythm Gastrointestinal: hypoactive bowel sounds, soft, non-tender, non-distended (protuberant), other (Midline abdominal incision with wound-vac in place) Integumentary: other (Midline abdominal incision with wound-vac in place) Extremities: no cyanosis, no edema, pulses normal, no ischemia or petechiae Neurologic: non-focal exam (grossly), pupils equal and round, CN II-XII normal, motor strength normal and (sedated) Psychiatric: mood appropriate, affect normal CBC and BMP: 01/04/21 04:38 01/04/21 04:38 ABG, PT/INR, D-dimer: ABG ABG pH 7.371 (7.320-7.450) 01/04/21 03:22 POC ABG pCO2 45.9 mmHg (32.0-48.0) 01/04/21 03:22 ABG pCO2 33.9 mm Hg 12/31/20 09:38 POC ABG pO2 82.3 mmHg (83-108) L 01/04/21 03:22 ABG pO2 354.0 mm Hg (80.0-90.0) H 12/31/20 09:38 POC ABG HCO3 26.0 01/04/21 03:22 ABG O2 Saturation 95.6 (0-100) 01/04/21 03:22 PT/INR, D-dimer PT 16.9 Sec. (12.2-14.9) H 01/01/21 12:45 INR 1.39 (0.87-1.13) H 01/01/21 12:45 Abnormal lab findings: Abnormal Labs 12/22/20 12/22/20 12/22/20 14:38 14:38 14:38 WBC RBC Hgb 11.2 L Hct 35.0 L MCV MCHC RDW 16.7 H Plt Count Lymph % (Auto) [place] % (Auto) Lymph # (Auto) Seg Neutrophils % Seg Neuts % (Manual) 94.0 H Lymphocytes % (Manual) 5.0 L Monocytes % (Manual) Seg Neutrophils # Man Lymphocytes # (Manual) 0.3 L Monocytes # (Manual) PT INR ABG pH POC ABG pCO2 POC ABG pO2 ABG pO2 ABG HCO3 ABG O2 Saturation ABG Base Excess ABG Hemoglobin ABG Oxyhemoglobin ABG Sodium ABG Potassium ABG Chloride ABG Glucose Oxyhemoglobin Sodium Potassium Chloride Carbon Dioxide BUN 58 H Creatinine 13.2 H Glucose 113 H POC Glucose Lactic Acid 3.60 H* Calcium Phosphorus Magnesium Total Bilirubin 1.30 H AST ALT Alkaline Phosphatase 155 H Total Protein Albumin Triglycerides Arterial Blood Glucose Arterial Blood Ionized Calcium Crossmatch 12/22/20 12/22/20 12/23/20 16:26 17:47 05:22 WBC RBC Hgb Hct MCV MCHC RDW Plt Count Lymph % (Auto) [place] % (Auto) Lymph # (Auto) Seg Neutrophils % Seg Neuts % (Manual) Lymphocytes % (Manual) Monocytes % (Manual) Seg Neutrophils # Man Lymphocytes # (Manual) Monocytes # (Manual) PT INR ABG pH POC ABG pCO2 POC ABG pO2 ABG pO2 ABG HCO3 ABG O2 Saturation ABG Base Excess ABG Hemoglobin ABG Oxyhemoglobin ABG Sodium ABG Potassium ABG Chloride ABG Glucose Oxyhemoglobin Sodium Potassium Chloride Carbon Dioxide BUN Creatinine Glucose POC Glucose Lactic Acid 2.80 H* 3.10 H* 2.30 H* Calcium Phosphorus Magnesium Total Bilirubin AST ALT Alkaline Phosphatase Total Protein Albumin Triglycerides Arterial Blood Glucose Arterial Blood Ionized Calcium Crossmatch 12/23/20 12/23/20 12/23/20 05:22 05:22 06:35 WBC 12.1 H RBC Hgb 11.0 L Hct 33.7 L MCV MCHC RDW 16.9 H Plt Count Lymph % (Auto) [place] % (Auto) Lymph # (Auto) Seg Neutrophils % Seg Neuts % (Manual) 93.0 H Lymphocytes % (Manual) 1.0 L Monocytes % (Manual) Seg Neutrophils # Man 11.3 H Lymphocytes # (Manual) 0.1 L Monocytes # (Manual) PT INR ABG pH POC ABG pCO2 POC ABG pO2 ABG pO2 ABG HCO3 ABG O2 Saturation ABG Base Excess ABG Hemoglobin ABG Oxyhemoglobin ABG Sodium ABG Potassium ABG Chloride ABG Glucose Oxyhemoglobin Sodium Potassium 5.7 H D Chloride Carbon Dioxide BUN 73 H Creatinine 14.2 H Glucose POC Glucose Lactic Acid 2.30 H* Calcium 7.9 L Phosphorus Magnesium Total Bilirubin 1.40 H AST 119 H ALT 130 H Alkaline Phosphatase 183 H Total Protein 6.1 L Albumin 3.6 L Triglycerides Arterial Blood Glucose Arterial Blood Ionized Calcium Crossmatch 12/23/20 12/23/20 12/23/20 11:40 13:53 16:47 WBC RBC Hgb 10.0 L Hct 30.4 L MCV MCHC RDW Plt Count Lymph % (Auto) [place] % (Auto) Lymph # (Auto) Seg Neutrophils % Seg Neuts % (Manual) Lymphocytes % (Manual) Monocytes % (Manual) Seg Neutrophils # Man Lymphocytes # (Manual) Monocytes # (Manual) PT INR ABG pH POC ABG pCO2 POC ABG pO2 137.5 H ABG pO2 ABG HCO3 ABG O2 Saturation ABG Base Excess ABG Hemoglobin 9.7 L ABG Oxyhemoglobin ABG Sodium 134.1 L ABG Potassium 6.6 H ABG Chloride ABG Glucose 103 H Oxyhemoglobin Sodium Potassium Chloride Carbon Dioxide BUN Creatinine Glucose POC Glucose Lactic Acid Calcium Phosphorus Magnesium Total Bilirubin AST ALT Alkaline Phosphatase Total Protein Albumin Triglycerides Arterial Blood Glucose 103 H Arterial Blood Ionized Calcium 3.8 L Crossmatch See Detail 12/23/20 12/23/20 12/24/20 20:35 20:40 01:20 WBC RBC Hgb Hct MCV MCHC RDW Plt Count Lymph % (Auto) [place] % (Auto) Lymph # (Auto) Seg Neutrophils % Seg Neuts % (Manual) Lymphocytes % (Manual) Monocytes % (Manual) Seg Neutrophils # Man Lymphocytes # (Manual) Monocytes # (Manual) PT INR ABG pH 7.252 L POC ABG pCO2 POC ABG pO2 ABG pO2 50.1 L ABG HCO3 ABG O2 Saturation 81.1 L ABG Base Excess -5.9 L ABG Hemoglobin 12.1 L ABG Oxyhemoglobin ABG Sodium ABG Potassium ABG Chloride ABG Glucose Oxyhemoglobin 78.6 L Sodium 134 L Potassium 6.9 H* D 6.3 H* Chloride Carbon Dioxide 18 L 20 L BUN 87 H 91 H Creatinine 15.3 H 15.3 H Glucose 103 H POC Glucose Lactic Acid Calcium 6.9 L 7.5 L Phosphorus Magnesium Total Bilirubin AST ALT Alkaline Phosphatase Total Protein Albumin Triglycerides Arterial Blood Glucose Arterial Blood Ionized Calcium Crossmatch 12/24/20 12/24/20 12/24/20 04:00 10:29 10:29 WBC RBC 3.49 L Hgb 10.5 L Hct 31.2 L MCV MCHC RDW 17.5 H Plt Count 124 L Lymph % (Auto) 3.7 L [place] % (Auto) 9.8 H Lymph # (Auto) 0.2 L Seg Neutrophils % 85.9 H Seg Neuts % (Manual) Lymphocytes % (Manual) Monocytes % (Manual) Seg Neutrophils # Man Lymphocytes # (Manual) Monocytes # (Manual) PT INR ABG pH POC ABG pCO2 28.1 L POC ABG pO2 ABG pO2 ABG HCO3 ABG O2 Saturation ABG Base Excess ABG Hemoglobin ABG Oxyhemoglobin ABG Sodium 133.9 L ABG Potassium 5.3 H ABG Chloride 108.0 H ABG Glucose Oxyhemoglobin Sodium Potassium 5.6 H Chloride Carbon Dioxide 19 L BUN 99 H Creatinine 16.9 H Glucose 52 L POC Glucose Lactic Acid Calcium 7.6 L Phosphorus Magnesium Total Bilirubin 3.50 H AST 67 H ALT 71 H Alkaline Phosphatase Total Protein 3.5 L D Albumin 2.1 L Triglycerides Arterial Blood Glucose Arterial Blood Ionized Calcium 4.0 L Crossmatch 12/25/20 12/25/20 12/25/20 03:33 04:00 04:00 WBC 3.8 L RBC 2.90 L Hgb 8.6 L Hct 25.7 L MCV MCHC RDW 16.7 H Plt Count 113 L Lymph % (Auto) [place] % (Auto) Lymph # (Auto) Seg Neutrophils % Seg Neuts % (Manual) Lymphocytes % (Manual) Monocytes % (Manual) Seg Neutrophils # Man Lymphocytes # (Manual) Monocytes # (Manual) PT INR ABG pH 7.544 H POC ABG pCO2 28.2 L POC ABG pO2 62.8 L ABG pO2 ABG HCO3 ABG O2 Saturation ABG Base Excess ABG Hemoglobin 9.3 L ABG Oxyhemoglobin 93.0 L ABG Sodium 130.3 L ABG Potassium ABG Chloride ABG Glucose 97 H Oxyhemoglobin Sodium Potassium Chloride Carbon Dioxide BUN 62 H Creatinine 11.4 H Glucose POC Glucose Lactic Acid Calcium 7.7 L Phosphorus 5.00 H Magnesium Total Bilirubin AST ALT Alkaline Phosphatase Total Protein Albumin Triglycerides Arterial Blood Glucose 97 H Arterial Blood Ionized Calcium 3.9 L Crossmatch 12/26/20 12/26/20 12/27/20 04:46 Unknown 03:40 WBC 4.1 L RBC 2.61 L Hgb 7.8 L Hct 23.4 L MCV MCHC RDW 17.1 H Plt Count 119 L Lymph % (Auto) 5.3 L [place] % (Auto) 10.6 H Lymph # (Auto) 0.2 L Seg Neutrophils % 78.8 H Seg Neuts % (Manual) Lymphocytes % (Manual) Monocytes % (Manual) Seg Neutrophils # Man Lymphocytes # (Manual) Monocytes # (Manual) PT INR ABG pH 7.333 L 7.332 L POC ABG pCO2 POC ABG pO2 ABG pO2 ABG HCO3 26.9 H ABG O2 Saturation ABG Base Excess -2.4 L ABG Hemoglobin 6.8 L 7.2 L ABG Oxyhemoglobin ABG Sodium ABG Potassium ABG Chloride ABG Glucose Oxyhemoglobin 93.0 L 93.1 L Sodium Potassium Chloride Carbon Dioxide BUN Creatinine Glucose POC Glucose Lactic Acid Calcium Phosphorus Magnesium Total Bilirubin AST ALT Alkaline Phosphatase Total Protein Albumin Triglycerides Arterial Blood Glucose Arterial Blood Ionized Calcium Crossmatch 12/27/20 12/27/20 12/27/20 06:40 06:40 11:22 WBC 4.4 L RBC 2.49 L Hgb 7.4 L Hct 22.4 L MCV MCHC RDW 17.1 H Plt Count 111 L Lymph % (Auto) 6.7 L [place] % (Auto) 12.6 H Lymph # (Auto) 0.3 L Seg Neutrophils % 77.6 H Seg Neuts % (Manual) Lymphocytes % (Manual) Monocytes % (Manual) Seg Neutrophils # Man Lymphocytes # (Manual) Monocytes # (Manual) PT INR ABG pH POC ABG pCO2 POC ABG pO2 ABG pO2 ABG HCO3 ABG O2 Saturation ABG Base Excess ABG Hemoglobin ABG Oxyhemoglobin ABG Sodium ABG Potassium ABG Chloride ABG Glucose Oxyhemoglobin Sodium Potassium Chloride Carbon Dioxide BUN 64 H Creatinine 9.8 H Glucose 147 H POC Glucose 134 H Lactic Acid Calcium 8.3 L Phosphorus 5.00 H Magnesium Total Bilirubin 3.70 H AST 72 H ALT Alkaline Phosphatase 142 H Total Protein 5.1 L D Albumin 2.9 L Triglycerides Arterial Blood Glucose Arterial Blood Ionized Calcium Crossmatch 12/27/20 12/27/20 12/28/20 17:29 23:31 03:09 WBC RBC Hgb Hct MCV MCHC RDW Plt Count Lymph % (Auto) [place] % (Auto) Lymph # (Auto) Seg Neutrophils % Seg Neuts % (Manual) Lymphocytes % (Manual) Monocytes % (Manual) Seg Neutrophils # Man Lymphocytes # (Manual) Monocytes # (Manual) PT INR ABG pH 7.474 H POC ABG pCO2 POC ABG pO2 ABG pO2 ABG HCO3 ABG O2 Saturation ABG Base Excess ABG Hemoglobin 7.8 L ABG Oxyhemoglobin ABG Sodium ABG Potassium ABG Chloride ABG Glucose Oxyhemoglobin Sodium Potassium Chloride Carbon Dioxide BUN Creatinine Glucose POC Glucose 121 H 131 H Lactic Acid Calcium Phosphorus Magnesium Total Bilirubin AST ALT Alkaline Phosphatase Total Protein Albumin Triglycerides Arterial Blood Glucose Arterial Blood Ionized Calcium Crossmatch 12/28/20 12/28/20 12/28/20 05:37 05:40 05:40 WBC 4.3 L RBC 2.40 L Hgb 7.2 L Hct 21.5 L MCV MCHC RDW 17.4 H Plt Count 112 L Lymph % (Auto) 6.5 L [place] % (Auto) 16.7 H Lymph # (Auto) 0.3 L Seg Neutrophils % 71.1 H Seg Neuts % (Manual) Lymphocytes % (Manual) Monocytes % (Manual) Seg Neutrophils # Man Lymphocytes # (Manual) Monocytes # (Manual) PT INR ABG pH POC ABG pCO2 POC ABG pO2 ABG pO2 ABG HCO3 ABG O2 Saturation ABG Base Excess ABG Hemoglobin ABG Oxyhemoglobin ABG Sodium ABG Potassium ABG Chloride ABG Glucose Oxyhemoglobin Sodium Potassium Chloride Carbon Dioxide BUN 85 H Creatinine 11.5 H Glucose 132 H POC Glucose 121 H Lactic Acid Calcium 8.2 L Phosphorus Magnesium 2.40 H Total Bilirubin 3.80 H AST 70 H ALT Alkaline Phosphatase 176 H Total Protein 5.0 L Albumin 2.9 L Triglycerides Arterial Blood Glucose Arterial Blood Ionized Calcium Crossmatch 12/28/20 12/28/20 12/28/20 11:34 15:00 17:35 WBC RBC Hgb Hct MCV MCHC RDW Plt Count Lymph % (Auto) [place] % (Auto) Lymph # (Auto) Seg Neutrophils % Seg Neuts % (Manual) Lymphocytes % (Manual) Monocytes % (Manual) Seg Neutrophils # Man Lymphocytes # (Manual) Monocytes # (Manual) PT INR ABG pH 7.461 H POC ABG pCO2 POC ABG pO2 72.2 L ABG pO2 ABG HCO3 ABG O2 Saturation ABG Base Excess ABG Hemoglobin 8.2 L ABG Oxyhemoglobin 93.6 L ABG Sodium 134.1 L ABG Potassium 3.2 L ABG Chloride ABG Glucose 135 H Oxyhemoglobin Sodium Potassium Chloride Carbon Dioxide BUN Creatinine Glucose POC Glucose 137 H 144 H Lactic Acid Calcium Phosphorus Magnesium Total Bilirubin AST ALT Alkaline Phosphatase Total Protein Albumin Triglycerides Arterial Blood Glucose 135 H Arterial Blood Ionized Calcium 4.4 L Crossmatch 12/28/20 12/28/20 12/29/20 19:44 Unknown 00:21 WBC RBC Hgb Hct MCV MCHC RDW Plt Count Lymph % (Auto) [place] % (Auto) Lymph # (Auto) Seg Neutrophils % Seg Neuts % (Manual) Lymphocytes % (Manual) Monocytes % (Manual) Seg Neutrophils # Man Lymphocytes # (Manual) Monocytes # (Manual) PT INR ABG pH 7.474 H POC ABG pCO2 POC ABG pO2 ABG pO2 ABG HCO3 ABG O2 Saturation ABG Base Excess ABG Hemoglobin 7.8 L ABG Oxyhemoglobin ABG Sodium 133.2 L ABG Potassium ABG Chloride ABG Glucose 139 H Oxyhemoglobin Sodium 135 L Potassium Chloride 96.6 L Carbon Dioxide BUN 47 H Creatinine 7.4 H Glucose 130 H POC Glucose 142 H Lactic Acid Calcium 8.3 L Phosphorus Magnesium Total Bilirubin AST ALT Alkaline Phosphatase Total Protein Albumin Triglycerides Arterial Blood Glucose 139 H Arterial Blood Ionized Calcium 4.3 L Crossmatch 12/29/20 12/29/20 12/29/20 05:16 05:16 05:26 WBC RBC 2.53 L Hgb 7.7 L Hct 22.8 L MCV MCHC RDW 17.0 H Plt Count 130 L Lymph % (Auto) [place] % (Auto) Lymph # (Auto) Seg Neutrophils % Seg Neuts % (Manual) 79.0 H Lymphocytes % (Manual) 9.0 L Monocytes % (Manual) Seg Neutrophils # Man Lymphocytes # (Manual) 0.6 L Monocytes # (Manual) PT INR ABG pH POC ABG pCO2 POC ABG pO2 ABG pO2 ABG HCO3 ABG O2 Saturation ABG Base Excess ABG Hemoglobin ABG Oxyhemoglobin ABG Sodium ABG Potassium ABG Chloride ABG Glucose Oxyhemoglobin Sodium Potassium 3.4 L Chloride 96.6 L Carbon Dioxide BUN 59 H Creatinine 8.3 H Glucose 127 H POC Glucose 141 H Lactic Acid Calcium 8.2 L Phosphorus Magnesium Total Bilirubin 3.00 H AST 88 H ALT Alkaline Phosphatase 188 H Total Protein 5.1 L Albumin 2.8 L Triglycerides Arterial Blood Glucose Arterial Blood Ionized Calcium Crossmatch 12/29/20 12/29/20 12/29/20 11:33 17:29 23:22 WBC RBC Hgb Hct MCV MCHC RDW Plt Count Lymph % (Auto) [place] % (Auto) Lymph # (Auto) Seg Neutrophils % Seg Neuts % (Manual) Lymphocytes % (Manual) Monocytes % (Manual) Seg Neutrophils # Man Lymphocytes # (Manual) Monocytes # (Manual) PT INR ABG pH POC ABG pCO2 POC ABG pO2 ABG pO2 ABG HCO3 ABG O2 Saturation ABG Base Excess ABG Hemoglobin ABG Oxyhemoglobin ABG Sodium ABG Potassium ABG Chloride ABG Glucose Oxyhemoglobin Sodium Potassium Chloride Carbon Dioxide BUN Creatinine Glucose POC Glucose 144 H 130 H 117 H Lactic Acid Calcium Phosphorus Magnesium Total Bilirubin AST ALT Alkaline Phosphatase Total Protein Albumin Triglycerides Arterial Blood Glucose Arterial Blood Ionized Calcium Crossmatch 12/30/20 12/30/20 12/30/20 05:23 08:15 09:00 WBC RBC Hgb Hct MCV MCHC RDW Plt Count Lymph % (Auto) [place] % (Auto) Lymph # (Auto) Seg Neutrophils % Seg Neuts % (Manual) Lymphocytes % (Manual) Monocytes % (Manual) Seg Neutrophils # Man Lymphocytes # (Manual) Monocytes # (Manual) PT INR ABG pH POC ABG pCO2 POC ABG pO2 ABG pO2 ABG HCO3 ABG O2 Saturation ABG Base Excess ABG Hemoglobin ABG Oxyhemoglobin ABG Sodium ABG Potassium ABG Chloride ABG Glucose Oxyhemoglobin Sodium 135 L Potassium Chloride 95.9 L Carbon Dioxide BUN 85 H Creatinine 10.6 H Glucose 128 H POC Glucose 135 H 127 H Lactic Acid Calcium 8.3 L Phosphorus Magnesium Total Bilirubin 2.40 H AST 85 H ALT Alkaline Phosphatase 216 H Total Protein 5.3 L Albumin 2.6 L Triglycerides 155 H Arterial Blood Glucose Arterial Blood Ionized Calcium Crossmatch 12/30/20 12/30/20 12/30/20 09:00 11:53 15:49 WBC RBC 2.61 L Hgb 7.8 L Hct 23.7 L MCV MCHC RDW 17.3 H Plt Count Lymph % (Auto) [place] % (Auto) Lymph # (Auto) Seg Neutrophils % Seg Neuts % (Manual) Lymphocytes % (Manual) Monocytes % (Manual) Seg Neutrophils # Man Lymphocytes # (Manual) Monocytes # (Manual) PT INR ABG pH POC ABG pCO2 POC ABG pO2 ABG pO2 ABG HCO3 ABG O2 Saturation ABG Base Excess ABG Hemoglobin ABG Oxyhemoglobin ABG Sodium ABG Potassium ABG Chloride ABG Glucose Oxyhemoglobin Sodium Potassium Chloride Carbon Dioxide BUN Creatinine Glucose POC Glucose 155 H 146 H Lactic Acid Calcium Phosphorus Magnesium Total Bilirubin AST ALT Alkaline Phosphatase Total Protein Albumin Triglycerides Arterial Blood Glucose Arterial Blood Ionized Calcium Crossmatch 12/30/20 12/30/20 12/31/20 17:53 23:45 03:56 WBC RBC Hgb Hct MCV MCHC RDW Plt Count Lymph % (Auto) [place] % (Auto) Lymph # (Auto) Seg Neutrophils % Seg Neuts % (Manual) Lymphocytes % (Manual) Monocytes % (Manual) Seg Neutrophils # Man Lymphocytes # (Manual) Monocytes # (Manual) PT INR ABG pH POC ABG pCO2 POC ABG pO2 49.4 L ABG pO2 ABG HCO3 ABG O2 Saturation ABG Base Excess ABG Hemoglobin 10.3 L ABG Oxyhemoglobin 84.2 L ABG Sodium 133.1 L ABG Potassium ABG Chloride ABG Glucose 173 H Oxyhemoglobin Sodium Potassium Chloride Carbon Dioxide BUN Creatinine Glucose POC Glucose 139 H 173 H Lactic Acid Calcium Phosphorus Magnesium Total Bilirubin AST ALT Alkaline Phosphatase Total Protein Albumin Triglycerides Arterial Blood Glucose 173 H Arterial Blood Ionized Calcium Crossmatch 12/31/20 12/31/20 12/31/20 05:07 06:51 06:51 WBC 20.3 H RBC 3.32 L Hgb 9.8 L Hct 30.3 L D MCV MCHC RDW 17.3 H Plt Count Lymph % (Auto) [place] % (Auto) Lymph # (Auto) Seg Neutrophils % Seg Neuts % (Manual) 87.0 H Lymphocytes % (Manual) 10.0 L Monocytes % (Manual) Seg Neutrophils # Man 17.7 H Lymphocytes # (Manual) Monocytes # (Manual) PT INR ABG pH POC ABG pCO2 POC ABG pO2 ABG pO2 ABG HCO3 ABG O2 Saturation ABG Base Excess ABG Hemoglobin ABG Oxyhemoglobin ABG Sodium ABG Potassium ABG Chloride ABG Glucose Oxyhemoglobin Sodium Potassium 5.2 H D Chloride Carbon Dioxide BUN 62 H Creatinine 8.4 H Glucose 116 H POC Glucose 120 H Lactic Acid Calcium Phosphorus Magnesium 1.60 L Total Bilirubin AST ALT Alkaline Phosphatase Total Protein Albumin Triglycerides Arterial Blood Glucose Arterial Blood Ionized Calcium Crossmatch 12/31/20 12/31/20 12/31/20 09:38 12:19 12:22 WBC RBC Hgb Hct MCV MCHC RDW Plt Count Lymph % (Auto) [place] % (Auto) Lymph # (Auto) Seg Neutrophils % Seg Neuts % (Manual) Lymphocytes % (Manual) Monocytes % (Manual) Seg Neutrophils # Man Lymphocytes # (Manual) Monocytes # (Manual) PT INR ABG pH POC ABG pCO2 POC ABG pO2 ABG pO2 354.0 H ABG HCO3 ABG O2 Saturation 99.6 H ABG Base Excess ABG Hemoglobin 9.1 L ABG Oxyhemoglobin ABG Sodium ABG Potassium ABG Chloride ABG Glucose Oxyhemoglobin Sodium Potassium 5.2 H Chloride Carbon Dioxide BUN Creatinine Glucose POC Glucose 132 H Lactic Acid Calcium Phosphorus Magnesium Total Bilirubin AST ALT Alkaline Phosphatase Total Protein Albumin Triglycerides Arterial Blood Glucose Arterial Blood Ionized Calcium Crossmatch 12/31/20 01/01/21 01/01/21 23:23 03:03 05:04 WBC RBC Hgb Hct MCV MCHC RDW Plt Count Lymph % (Auto) [place] % (Auto) Lymph # (Auto) Seg Neutrophils % Seg Neuts % (Manual) Lymphocytes % (Manual) Monocytes % (Manual) Seg Neutrophils # Man Lymphocytes # (Manual) Monocytes # (Manual) PT INR ABG pH POC ABG pCO2 POC ABG pO2 79.6 L ABG pO2 ABG HCO3 ABG O2 Saturation ABG Base Excess ABG Hemoglobin 9.2 L ABG Oxyhemoglobin ABG Sodium 131.6 L ABG Potassium 5.8 H ABG Chloride ABG Glucose 177 H Oxyhemoglobin Sodium Potassium Chloride Carbon Dioxide BUN Creatinine Glucose POC Glucose 174 H 167 H Lactic Acid Calcium Phosphorus Magnesium Total Bilirubin AST ALT Alkaline Phosphatase Total Protein Albumin Triglycerides Arterial Blood Glucose 177 H Arterial Blood Ionized Calcium Crossmatch 01/01/21 01/01/21 01/01/21 07:31 07:31 11:31 WBC 26.1 H RBC 2.95 L Hgb 8.6 L Hct 27.1 L MCV MCHC RDW 18.2 H Plt Count Lymph % (Auto) [place] % (Auto) Lymph # (Auto) Seg Neutrophils % Seg Neuts % (Manual) 96.0 H Lymphocytes % (Manual) 4.0 L Monocytes % (Manual) Seg Neutrophils # Man 25.1 H Lymphocytes # (Manual) 1.0 L Monocytes # (Manual) PT INR ABG pH POC ABG pCO2 POC ABG pO2 ABG pO2 ABG HCO3 ABG O2 Saturation ABG Base Excess ABG Hemoglobin ABG Oxyhemoglobin ABG Sodium ABG Potassium ABG Chloride ABG Glucose Oxyhemoglobin Sodium Potassium 6.0 H Chloride Carbon Dioxide 21 L BUN 89 H Creatinine 10.5 H Glucose 179 H POC Glucose Lactic Acid Calcium Phosphorus Magnesium Total Bilirubin AST ALT Alkaline Phosphatase Total Protein Albumin Triglycerides Arterial Blood Glucose Arterial Blood Ionized Calcium Crossmatch See Detail 01/01/21 01/01/21 01/01/21 11:51 12:45 16:52 WBC RBC Hgb Hct MCV MCHC RDW Plt Count Lymph % (Auto) [place] % (Auto) Lymph # (Auto) Seg Neutrophils % Seg Neuts % (Manual) Lymphocytes % (Manual) Monocytes % (Manual) Seg Neutrophils # Man Lymphocytes # (Manual) Monocytes # (Manual) PT 16.9 H INR 1.39 H ABG pH POC ABG pCO2 POC ABG pO2 ABG pO2 ABG HCO3 ABG O2 Saturation ABG Base Excess ABG Hemoglobin ABG Oxyhemoglobin ABG Sodium ABG Potassium ABG Chloride ABG Glucose Oxyhemoglobin Sodium Potassium Chloride Carbon Dioxide BUN Creatinine Glucose POC Glucose 157 H 177 H Lactic Acid Calcium Phosphorus Magnesium Total Bilirubin AST ALT Alkaline Phosphatase Total Protein Albumin Triglycerides Arterial Blood Glucose Arterial Blood Ionized Calcium Crossmatch 01/01/21 01/01/21 01/01/21 17:58 17:58 20:12 WBC 26.9 H RBC 3.14 L Hgb 9.3 L Hct 29.6 L MCV MCHC RDW 17.5 H Plt Count Lymph % (Auto) [place] % (Auto) Lymph # (Auto) Seg Neutrophils % Seg Neuts % (Manual) 84.0 H Lymphocytes % (Manual) 4.0 L Monocytes % (Manual) 12.0 H Seg Neutrophils # Man 22.6 H Lymphocytes # (Manual) 1.1 L Monocytes # (Manual) 3.2 H PT INR ABG pH POC ABG pCO2 POC ABG pO2 ABG pO2 ABG HCO3 ABG O2 Saturation ABG Base Excess ABG Hemoglobin ABG Oxyhemoglobin ABG Sodium ABG Potassium ABG Chloride ABG Glucose Oxyhemoglobin Sodium 136 L Potassium 6.2 H* Chloride Carbon Dioxide 21 L BUN 92 H Creatinine 10.8 H Glucose 171 H POC Glucose 288 H Lactic Acid Calcium Phosphorus Magnesium Total Bilirubin 2.10 H AST 223 H ALT 100 H Alkaline Phosphatase 206 H Total Protein 4.8 L Albumin 1.9 L Triglycerides Arterial Blood Glucose Arterial Blood Ionized Calcium Crossmatch 01/02/21 01/02/21 01/02/21 00:12 00:45 03:05 WBC RBC Hgb Hct MCV MCHC RDW Plt Count Lymph % (Auto) [place] % (Auto) Lymph # (Auto) Seg Neutrophils % Seg Neuts % (Manual) Lymphocytes % (Manual) Monocytes % (Manual) Seg Neutrophils # Man Lymphocytes # (Manual) Monocytes # (Manual) PT INR ABG pH POC ABG pCO2 POC ABG pO2 81.8 L ABG pO2 ABG HCO3 ABG O2 Saturation ABG Base Excess ABG Hemoglobin 8.0 L ABG Oxyhemoglobin ABG Sodium 129.8 L ABG Potassium 5.4 H ABG Chloride ABG Glucose 257 H Oxyhemoglobin Sodium 136 L Potassium 5.8 H Chloride 96.6 L Carbon Dioxide BUN 95 H Creatinine 11.2 H Glucose 238 H POC Glucose 223 H Lactic Acid Calcium Phosphorus Magnesium Total Bilirubin AST ALT Alkaline Phosphatase Total Protein Albumin Triglycerides Arterial Blood Glucose 257 H Arterial Blood Ionized Calcium 4.0 L Crossmatch 01/02/21 01/02/21 01/02/21 06:25 08:00 08:00 WBC 17.5 H RBC 2.31 L Hgb 6.7 L Hct 22.1 L D MCV 96 H MCHC 30 L RDW 18.4 H Plt Count Lymph % (Auto) [place] % (Auto) Lymph # (Auto) Seg Neutrophils % Seg Neuts % (Manual) Lymphocytes % (Manual) Monocytes % (Manual) Seg Neutrophils # Man Lymphocytes # (Manual) Monocytes # (Manual) PT INR ABG pH POC ABG pCO2 POC ABG pO2 ABG pO2 ABG HCO3 ABG O2 Saturation ABG Base Excess ABG Hemoglobin ABG Oxyhemoglobin ABG Sodium ABG Potassium ABG Chloride ABG Glucose Oxyhemoglobin Sodium 134 L Potassium 5.3 H Chloride 92.9 L Carbon Dioxide BUN 101 H Creatinine 10.9 H Glucose 560 H* POC Glucose 239 H Lactic Acid Calcium 7.6 L Phosphorus 6.50 H Magnesium Total Bilirubin AST ALT Alkaline Phosphatase Total Protein Albumin Triglycerides Arterial Blood Glucose Arterial Blood Ionized Calcium Crossmatch 01/02/21 01/02/21 01/02/21 11:26 15:00 17:57 WBC RBC Hgb Hct MCV MCHC RDW Plt Count Lymph % (Auto) [place] % (Auto) Lymph # (Auto) Seg Neutrophils % Seg Neuts % (Manual) Lymphocytes % (Manual) Monocytes % (Manual) Seg Neutrophils # Man Lymphocytes # (Manual) Monocytes # (Manual) PT INR ABG pH POC ABG pCO2 POC ABG pO2 ABG pO2 ABG HCO3 ABG O2 Saturation ABG Base Excess ABG Hemoglobin ABG Oxyhemoglobin ABG Sodium ABG Potassium ABG Chloride ABG Glucose Oxyhemoglobin Sodium Potassium Chloride Carbon Dioxide BUN Creatinine Glucose 241 H POC Glucose 205 H 272 H Lactic Acid Calcium Phosphorus Magnesium Total Bilirubin AST ALT Alkaline Phosphatase Total Protein Albumin Triglycerides Arterial Blood Glucose Arterial Blood Ionized Calcium Crossmatch 01/02/21 01/02/21 01/03/21 23:25 23:43 03:45 WBC RBC Hgb Hct MCV MCHC RDW Plt Count Lymph % (Auto) [place] % (Auto) Lymph # (Auto) Seg Neutrophils % Seg Neuts % (Manual) Lymphocytes % (Manual) Monocytes % (Manual) Seg Neutrophils # Man Lymphocytes # (Manual) Monocytes # (Manual) PT INR ABG pH POC ABG pCO2 48.3 H POC ABG pO2 134.4 H 79.7 L ABG pO2 ABG HCO3 ABG O2 Saturation ABG Base Excess ABG Hemoglobin 7.7 L 8.6 L ABG Oxyhemoglobin ABG Sodium 131.8 L 130.4 L ABG Potassium ABG Chloride 97.0 L ABG Glucose 218 H 238 H Oxyhemoglobin Sodium Potassium Chloride Carbon Dioxide BUN Creatinine Glucose POC Glucose 218 H Lactic Acid Calcium Phosphorus Magnesium Total Bilirubin AST ALT Alkaline Phosphatase Total Protein Albumin Triglycerides Arterial Blood Glucose 218 H 238 H Arterial Blood Ionized Calcium 4.1 L 4.0 L Crossmatch 01/03/21 01/03/21 01/03/21 04:37 04:37 05:39 WBC 15.2 H RBC 2.38 L Hgb 7.3 L Hct 21.6 L MCV MCHC RDW 16.6 H Plt Count Lymph % (Auto) [place] % (Auto) Lymph # (Auto) Seg Neutrophils % Seg Neuts % (Manual) Lymphocytes % (Manual) Monocytes % (Manual) Seg Neutrophils # Man Lymphocytes # (Manual) Monocytes # (Manual) PT INR ABG pH POC ABG pCO2 POC ABG pO2 ABG pO2 ABG HCO3 ABG O2 Saturation ABG Base Excess ABG Hemoglobin ABG Oxyhemoglobin ABG Sodium ABG Potassium ABG Chloride ABG Glucose Oxyhemoglobin Sodium 136 L Potassium Chloride 94.5 L Carbon Dioxide BUN 69 H Creatinine 8.0 H Glucose 219 H POC Glucose 222 H Lactic Acid Calcium 7.8 L Phosphorus 4.80 H D Magnesium Total Bilirubin AST ALT Alkaline Phosphatase Total Protein Albumin Triglycerides Arterial Blood Glucose Arterial Blood Ionized Calcium Crossmatch 01/03/21 01/03/21 01/03/21 11:29 18:49 23:37 WBC RBC Hgb Hct MCV MCHC RDW Plt Count Lymph % (Auto) [place] % (Auto) Lymph # (Auto) Seg Neutrophils % Seg Neuts % (Manual) Lymphocytes % (Manual) Monocytes % (Manual) Seg Neutrophils # Man Lymphocytes # (Manual) Monocytes # (Manual) PT INR ABG pH POC ABG pCO2 POC ABG pO2 ABG pO2 ABG HCO3 ABG O2 Saturation ABG Base Excess ABG Hemoglobin ABG Oxyhemoglobin ABG Sodium ABG Potassium ABG Chloride ABG Glucose Oxyhemoglobin Sodium Potassium Chloride Carbon Dioxide BUN Creatinine Glucose POC Glucose 232 H 129 H 140 H Lactic Acid Calcium Phosphorus Magnesium Total Bilirubin AST ALT Alkaline Phosphatase Total Protein Albumin Triglycerides Arterial Blood Glucose Arterial Blood Ionized Calcium Crossmatch 01/04/21 01/04/21 01/04/21 03:22 04:38 04:38 WBC 11.1 H RBC 2.89 L Hgb 8.9 L Hct 26.2 L MCV MCHC RDW 16.1 H Plt Count Lymph % (Auto) [place] % (Auto) Lymph # (Auto) Seg Neutrophils % Seg Neuts % (Manual) Lymphocytes % (Manual) Monocytes % (Manual) Seg Neutrophils # Man Lymphocytes # (Manual) Monocytes # (Manual) PT INR ABG pH POC ABG pCO2 POC ABG pO2 82.3 L ABG pO2 ABG HCO3 ABG O2 Saturation ABG Base Excess ABG Hemoglobin 8.9 L ABG Oxyhemoglobin ABG Sodium 130.5 L ABG Potassium ABG Chloride ABG Glucose 124 H Oxyhemoglobin Sodium Potassium Chloride 95.5 L Carbon Dioxide BUN 87 H Creatinine 9.7 H Glucose 118 H POC Glucose Lactic Acid Calcium 7.7 L Phosphorus Magnesium Total Bilirubin AST ALT Alkaline Phosphatase Total Protein Albumin Triglycerides Arterial Blood Glucose 124 H Arterial Blood Ionized Calcium 3.5 L Crossmatch 01/04/21 05:39 WBC RBC Hgb Hct MCV MCHC RDW Plt Count Lymph % (Auto) [place] % (Auto) Lymph # (Auto) Seg Neutrophils % Seg Neuts % (Manual) Lymphocytes % (Manual) Monocytes % (Manual) Seg Neutrophils # Man Lymphocytes # (Manual) Monocytes # (Manual) PT INR ABG pH POC ABG pCO2 POC ABG pO2 ABG pO2 ABG HCO3 ABG O2 Saturation ABG Base Excess ABG Hemoglobin ABG Oxyhemoglobin ABG Sodium ABG Potassium ABG Chloride ABG Glucose Oxyhemoglobin Sodium Potassium Chloride Carbon Dioxide BUN Creatinine Glucose POC Glucose 134 H Lactic Acid Calcium Phosphorus Magnesium Total Bilirubin AST ALT Alkaline Phosphatase Total Protein Albumin Triglycerides Arterial Blood Glucose Arterial Blood Ionized Calcium Crossmatch Chest x-ray: other (none today) Allied health notes reviewed: nursing
--- NOTE | 2021-01-04 16:38 | Progress Note ---
Assessment and Plan Assessment: - ESRD on peritoneal dialysis. He has been on peritoneal dialysis for 2 years with no history of peritonitis. - small bowel obstruction s/p exp, necrotic bowel - respiratory failure on vent, now re-intubated - severe sepsis - gram positive cocci bacteremia - Septic shock - Hyperkalemia - Anemia of ESRD - Hyperglycemia - Postoperative ileus - a-fib, new onset Plan: - transitioned to HD, continue HD MWF - HD today - appreciate vascular for permacath placement [facility]J on 12/27; pulm removed RIJ vascath 12/28 - continue IV empiric abx per ID - s/p ex lap, now off PD, will not be able to continue pd with adhesion and sbo s/p resection - uf as tolerated with HD - will need outpatient hd placement once stable - stopped binders and sensipar - strict i/os - keep MAP >65 - continue albumin IV - monitor electrolytes daily - appreciate multidisplinary approach to care from surgery, ID, pulm input - a-fib management per cardiology Subjective Date of service: 01/04/21 Principal diagnosis: Ac hypoxemic resp failure; Severe Sepsis; Peritonitis; Acute SBO; ESRD; CHF Interval history: Remains intubated. HD today. Objective - Exam Narrative Exam: General appearance: Sedated, intubated Eyes: anicteric sclerae HENT: Normocephalic, Atraumatic Neck: supple, tracheal midline, no JVD Lungs: Intubated. Mechanical breath sounds. CV: Tachycardic Abdomen: Soft Midline surgical wound with Wound VAC Extremities: no edema, no cyanosis Skin: No rash. Psych: Sedated Neuro: Sedated - Vital Signs Vital signs: Vital Signs - 12hr 01/04/21 01/04/21 01/04/21 04:59 05:00 05:21 Temperature Pulse Rate 93 H 93 H 90 Pulse Rate [ From Monitor] Respiratory Rate Blood Pressure 134/59 122/63 124/55 O2 Sat by Pulse 100 Oximetry O2 Sat by Pulse Oximetry [ Anterior Bilateral Throughout] 01/04/21 01/04/21 01/04/21 05:22 05:30 06:00 Temperature Pulse Rate 89 89 91 H Pulse Rate [ From Monitor] Respiratory Rate Blood Pressure 125/55 132/70 127/68 O2 Sat by Pulse 99 Oximetry O2 Sat by Pulse Oximetry [ Anterior Bilateral Throughout] 01/04/21 01/04/21 01/04/21 06:30 07:00 07:10 Temperature 99.2 F Pulse Rate 90 89 Pulse Rate [ From Monitor] Respiratory Rate Blood Pressure 134/68 123/66 O2 Sat by Pulse 95 Oximetry O2 Sat by Pulse Oximetry [ Anterior Bilateral Throughout] 01/04/21 01/04/21 01/04/21 07:30 08:00 08:08 Temperature 99.2 F Pulse Rate 89 88 90 Pulse Rate [ 86 From Monitor] Respiratory 25 H Rate Blood Pressure 135/69 134/65 134/68 O2 Sat by Pulse 98 99 Oximetry O2 Sat by Pulse Oximetry [ Anterior Bilateral Throughout] 01/04/21 01/04/21 01/04/21 08:30 09:00 09:30 Temperature Pulse Rate 86 87 86 Pulse Rate [ From Monitor] Respiratory 33 H Rate Blood Pressure 130/65 127/68 135/67 O2 Sat by Pulse 97 98 97 Oximetry O2 Sat by Pulse Oximetry [ Anterior Bilateral Throughout] 01/04/21 01/04/21 01/04/21 10:00 10:30 11:00 Temperature Pulse Rate 85 83 86 Pulse Rate [ From Monitor] Respiratory Rate Blood Pressure 127/67 122/63 116/68 O2 Sat by Pulse 98 96 97 Oximetry O2 Sat by Pulse Oximetry [ Anterior Bilateral Throughout] 01/04/21 01/04/21 01/04/21 11:30 11:50 12:00 Temperature 99.0 F 99.0 F Pulse Rate 83 85 85 Pulse Rate [ 85 From Monitor] Respiratory 18 18 Rate Blood Pressure 133/67 146/69 146/69 O2 Sat by Pulse 99 97 Oximetry O2 Sat by Pulse 99 Oximetry [ Anterior Bilateral Throughout] 01/04/21 01/04/21 01/04/21 12:10 12:15 12:24 Temperature Pulse Rate 85 84 86 Pulse Rate [ From Monitor] Respiratory Rate Blood Pressure 146/69 142/73 116/68 O2 Sat by Pulse 97 Oximetry O2 Sat by Pulse Oximetry [ Anterior Bilateral Throughout] 01/04/21 01/04/21 01/04/21 12:30 12:45 13:00 Temperature Pulse Rate 81 84 82 Pulse Rate [ From Monitor] Respiratory Rate Blood Pressure 137/62 119/63 128/65 O2 Sat by Pulse 99 99 Oximetry O2 Sat by Pulse Oximetry [ Anterior Bilateral Throughout] 0501/04/21 01/04/21 13:15 13:30 13:45 Temperature Pulse Rate 84 82 86 Pulse Rate [ From Monitor] Respiratory Rate Blood Pressure 122/66 132/65 113/66 O2 Sat by Pulse 99 Oximetry O2 Sat by Pulse Oximetry [ Anterior Bilateral Throughout] 01/04/21 01/04/21 01/04/21 14:00 14:02 14:15 Temperature Pulse Rate 80 80 83 Pulse Rate [ From Monitor] Respiratory Rate Blood Pressure 117/64 117/64 121/64 O2 Sat by Pulse 99 Oximetry O2 Sat by Pulse Oximetry [ Anterior Bilateral Throughout] 01/04/21 01/04/21 01/04/21 14:30 14:45 15:01 Temperature Pulse Rate 85 84 81 Pulse Rate [ From Monitor] Respiratory Rate Blood Pressure 121/66 121/69 118/64 O2 Sat by Pulse 99 Oximetry O2 Sat by Pulse Oximetry [ Anterior Bilateral Throughout] 01/04/21 01/04/21 01/04/21 15:15 15:28 15:30 Temperature Pulse Rate 85 85 83 Pulse Rate [ From Monitor] Respiratory Rate Blood Pressure 130/67 130/67 127/66 O2 Sat by Pulse 99 Oximetry O2 Sat by Pulse Oximetry [ Anterior Bilateral Throughout] 01/04/21 01/04/21 15:40 15:59 Temperature 99.0 F Pulse Rate 80 79 Pulse Rate [ From Monitor] Respiratory 18 Rate Blood Pressure 133/64 133/64 O2 Sat by Pulse Oximetry O2 Sat by Pulse 100 Oximetry [ Anterior Bilateral Throughout] - Lab 01/04/21 04:38 01/04/21 04:38 Most recent lab results ABG pH 7.371 (7.320-7.450) 01/04/21 03:22 ABG pCO2 33.9 mm Hg 12/31/20 09:38 ABG pO2 354.0 mm Hg (80.0-90.0) H 12/31/20 09:38 ABG HCO3 22.0 mmol/L (20.0-26.0) 12/31/20 09:38 ABG O2 Saturation 95.6 (0-100) 01/04/21 03:22 Calcium 7.7 mg/dL (8.4-10.2) L 01/04/21 04:38 Phosphorus 4.80 mg/dL (2.5-4.5) H D 01/03/21 04:37 Magnesium 1.80 mg/dL (1.7-2.3) 01/03/21 04:37 Medications & Allergies - Medications Allergies/Adverse Reactions: Allergies No Known Allergies Allergy (Verified 06/09/20 15:27) Home Medications: Home Medications Medication Instructions Recorded Confirmed Last Taken Type Albuterol Mdi (or & Nicu Only) 2 puff IH QID PRN #1 inhalation 04/01/17 11/01/20 10/31/20 09:00 Rx [ProAir HFA Inhaler] Calcium Acetate 667 mg PO DAILY 04/20/20 11/01/20 10/31/20 09:00 History Centrum Men's Tablet 1 tab PO DAILY 04/20/20 11/01/20 10/31/20 09:00 History Cinacalcet 30 mg PO DAILY 04/20/20 11/01/20 10/31/20 09:00 History Dialyvite with Zinc Tablet 1 tab PO DAILY 04/20/20 11/01/20 10/31/20 09:00 History Magnesium 250 mg PO BID 04/20/20 11/01/20 10/31/20 17:00 History Triamcinolone 0.1% 1 1000units TRANSDERMA DAILY 04/20/20 11/01/20 10/31/20 09:00 History Vit B12/Folic Acid/B6/Aa No.15 1,000 mg PO DAILY 04/20/20 11/01/20 10/31/20 09:00 History amLODIPine 10 mg PO DAILY 06/09/20 11/01/20 10/31/20 09:00 History AtorvaSTATin 40 mg PO HS 11/01/20 11/01/20 10/31/20 21:00 History Benadryl 25 mg PO HS 11/01/20 11/01/20 10/31/20 21:00 History Diclofenac 1 TRANSDERMA QID 11/01/20 10/31/20 19:00 History Fluticasone Propionate 1 spray INTRANASAL DAILY 11/01/20 11/01/20 10/31/20 09:00 History Vitamin D3 2,000 units 11/01/20 10/31/20 09:00 History carvediloL 12.5 mg PO DAILY 11/01/20 11/01/20 10/31/20 09:00 History hydrALAZINE 100 mg PO TID 11/01/20 11/01/20 10/31/20 19:00 History Active Medications: Generic Name Dose Route Start Last Admin Trade Name Freq PRN Reason Stop Dose Admin Acetaminophen 650 mg 12/31/20 15:30 12/31/20 15:13 Acetaminophen 650 Mg Rect Supp AL 650 mg Q6H PRN Administration Non Cardiac Pain or Temp>100.5 Albuterol 2.5 mg 12/22/20 19:42 Albuterol 2.5 Mg/3 Ml Nebu IH Q4HRT PRN Shortness Of Breath Digoxin 0.125 mg 12/31/20 10:00 01/04/21 09:12 Digoxin 0.5 Mg/2 Ml Inj IV Not Given Q48HR THOMAS Famotidine 10 mg 12/24/20 13:00 01/04/21 10:10 Famotidine 20 Mg/2 Ml Inj IV 10 mg BID THOMAS Administration Fentanyl 50 mcg 12/24/20 11:35 01/01/21 11:28 Fentanyl 100 Mcg/2 Ml Inj IV 50 mcg Q10MIN PRN Administration ANALGESIA Haloperidol Lactate 5 mg 12/29/20 14:16 12/31/20 00:19 Haloperidol Lactate 5 Mg/1 Ml Inj IV 5 mg Q12H PRN Administration Agitation Heparin Sodium (Porcine) 5,000 unit 12/24/20 10:00 01/04/21 10:07 Heparin 5,000 Unit/1 Ml Vial SUB-Q 5,000 unit Q12HR THOMAS Administration Hydralazine HCl 10 mg 12/30/20 12:00 01/04/21 14:51 Hydralazine 20 Mg/1 Ml Inj IV Not Given Q4HR [facility] Hydrophilic Ointment 1 applic 12/31/20 06:39 Lip Therapy Vaseline TP Q2HR PRN Dry Lips Sodium Chloride 100 mls @ 999 mls/hr 12/23/20 11:03 Nacl 0.9% IV [place] PRN Hypotension Fentanyl Citrate 2,000 mcg in 100 mls @ 4.725 mls/hr 12/31/20 08:00 01/04/21 11:30 Fentanyl Drip Premix IV 2 mcg/kg/hr TITR THOMAS 9.45 mls/hr Titration Protocol 1 MCG/KG/HR NORepinephrine/NS 8 MG-250 ML 8 mg in 250 mls @ 3.75 mls/hr 12/31/20 09:00 01/03/21 08:30 Norepinephrine/Ns 8 Mg-250 Ml (Double Conc) IV 0 mcg/min TITRATE THOMAS 0 mls/hr Titration Protocol 2 MCG/MIN Piperacillin Sod/Tazobactam Sod 2.25 gm in 50 mls @ 100 mls/hr 12/31/20 12:00 01/04/21 16:24 Zosyn/Ns 2.25 Gm/50ml IV 01/06/21 20:29 100 mls/hr Q8H [facility] Administration Protocol Vasopressin 20 unit/ Sodium 101 mls @ 9.09 mls/hr 12/31/20 21:00 01/02/21 21:13 Chloride IV 0 units/min TITR THOMAS 0 mls/hr Titration Protocol 0.03 UNITS/MIN Phenylephrine HCl 100 mg/ 100 mls @ 3 mls/hr 12/31/20 23:45 01/01/21 18:30 Sodium Chloride IV 0 mcg/min TITR THOMAS 0 mls/hr Titration Protocol 50 MCG/MIN Amino Acids/Electrolytes/Dextrose 2,016 mls @ 84 mls/hr 01/03/21 20:00 01/03/21 20:03 Tpn Adult IV 84 mls/hr DAILY@[email or web address] [facility] Administration Protocol Sodium Chloride 500 mls @ 0 mls/hr 01/03/21 17:03 Nacl 0.9% 500 Ml IV ONCE THOMAS As Directed Amino Acids/Electrolytes/Dextrose 2,016 mls @ 84 mls/hr 01/04/21 20:00 Tpn Adult IV 01/05/21 19:59 DAILY@1999 [facility] Protocol Fat Emulsion Intravenous 250 mls @ 21 mls/hr 01/04/21 20:00 Intralipid 20% IV 01/05/21 07:59 DAILY@[email or web address] [facility] Insulin Glargine 10 units 01/03/21 10:00 01/04/21 10:09 Insulin Glargine 100 Units/Ml SUB-Q 10 units DAILY [facility] Administration Insulin Human Lispro 0 unit 01/03/21 12:00 01/04/21 14:51 Insulin Lispro 100 Unit/Ml SUB-Q Not Given Q6HR [facility] Protocol Metoprolol Tartrate 5 mg 12/30/20 12:00 01/04/21 14:51 Metoprolol Tartrate 5 Mg/5 Ml Inj IV Not Given Q4HR THOMAS Multi-Ingred Cream/Lotion/Oil/Oint 1 applic 12/31/20 06:39 Mineral Oil/Petrolatum, White Ophth Oint 3.5 Gm OU Q4HR PRN Dry Eye(s) Sodium Chloride 10 ml 12/22/20 22:00 01/04/21 10:10 Sodium Chloride 0.9% 10 Ml Flush Syringe IV 10 ml BID THOMAS Administration Sodium Chloride 10 ml 12/22/20 19:42 Sodium Chloride 0.9% 10 Ml Flush Syringe IV PRN PRN LINE FLUSH
[2021-01-04] MEDS ORDERED: FAT EMULSIONS 20% 250 ML IV SCH (20:00)
[2021-01-04] MEDS ORDERED: TOTAL PARENTERAL NUTRITION 2,016 ML IV SCH (20:00)
[2021-01-04] MEDS: TOTAL PARENTERAL NUTRITION 2,016 ML IV SCH (21:52)
[2021-01-05] MEDS: INSULIN LISPRO 100 UNIT/ML SUB-Q SCH ×4 (00:05→18:14)
[2021-01-05] MEDS: METOPROLOL TARTRATE 5 MG/5 ML INJ IV SCH ×6 (02:51→21:33)
[2021-01-05] MEDS: hydrALAZINE 20 MG/1 ML INJ IV SCH ×6 (02:52→21:32)
[2021-01-05] MEDS: PIPERACIL-TAZO 2.25 GM/50 ML 2.25 GM/50 ML BAG IV SCH ×3 (03:53→21:25)
[2021-01-05] MEDS: fentaNYL DRIP Premix 2,000 MCG/100 ML BAG IV SCH ×2 (06:05→14:17)
[2021-01-05] MEDS: FAMOTIDINE 20 MG/2 ML INJ IV SCH ×2 (09:39→21:43)
[2021-01-05] MEDS: INSULIN GLARGINE 100 UNITS/ML SUB-Q SCH (09:40)
[2021-01-05] MEDS: HEPARIN 5,000 UNIT/1 ML VIAL SUB-Q SCH ×2 (09:41→21:44)
--- NOTE | 2021-01-05 11:57 | Progress Note ---
Assessment and Plan New onset atrial fibrillation currently, he is sinus rhythm on telemetry Hx of nonischemic cardiomyopathy, resolving LVEF 50-55% by echo this presentation Small bowl obstruction status post emergency exploratory laparotomy for anastomotic leak status post exploratory laparotomy s/p ex lap, resection of perforated anastamosis, washout and abthera wound vac placement ESRD on PD Anemia s/p PRBCs Continue intravenous digoxin, and intravenous metoprolol for paroxysmal atrial fibrillation. Patient is not a candidate for anticoagulation at this time due to his postoperative status and the presence of severe anemia. Conservative cardiac management. Subjective Date of service: 01/05/21 Principal diagnosis: Ac hypoxemic resp failure; Severe Sepsis; Peritonitis; Acute SBO; ESRD; CHF Interval history: Patient is alert but remains intubated, on the ventilator. Patient is planning to take back to OR on Saturday. Currently, he is sinus rhythm on telemetry. Objective Vital Signs Temp Pulse Pulse Resp BP Pulse Ox Pulse Ox 01/05/21 10:32 90 144/64 01/05/21 10:00 91 H 16 153/62 100 01/05/21 09:39 92 H 158/71 01/05/21 09:30 90 23 151/71 100 01/05/21 09:25 91 H 151/66 100 01/05/21 09:00 92 H 17 170/68 98 01/05/21 08:30 96 H 19 167/76 98 01/05/21 08:00 94 H 94 H 25 H 166/71 100 01/05/21 07:37 98.9 F 01/05/21 07:30 96 H 16 184/78 100 01/05/21 07:00 74 37 H 181/79 100 01/05/21 06:30 95 H 31 H 189/76 01/05/21 06:00 92 H 26 H 182/74 01/05/21 05:30 88 20 156/69 98 01/05/21 05:10 93 H 189/81 01/05/21 05:09 93 H 189/81 01/05/21 05:00 97 H 24 189/81 98 01/05/21 04:32 83 165/78 98 01/05/21 04:30 92 H 28 H 179/80 97 01/05/21 04:00 98.7 F 85 85 27 H 167/76 98 01/05/21 03:30 80 19 156/77 01/05/21 03:00 80 20 166/75 01/05/21 02:52 83 165/78 01/05/21 02:51 82 165/78 01/05/21 02:30 79 21 159/74 97 01/05/21 02:00 82 22 156/76 98 01/05/21 01:30 80 25 H 158/75 100 01/05/21 01:00 78 33 H 150/73 100 01/05/21 00:34 76 156/76 100 01/05/21 00:30 74 14 156/76 100 01/05/21 00:00 98.4 F 79 79 21 154/73 100 01/04/21 23:33 78 25 H 147/74 100 01/04/21 23:30 77 22 147/74 100 01/04/21 23:17 79 21 160/75 100 01/04/21 23:00 78 16 143/71 100 01/04/21 22:30 76 18 147/71 100 01/04/21 22:00 76 18 144/74 100 01/04/21 21:50 77 111/75 01/04/21 21:49 80 111/101 01/04/21 21:30 78 139/74 100 01/04/21 21:07 77 127/72 100 01/04/21 21:00 76 127/72 100 01/04/21 20:30 79 120/67 100 01/04/21 20:00 98.5 F 77 77 18 125/63 100 01/04/21 19:30 81 119/61 100 01/04/21 19:00 81 126/61 100 01/04/21 18:30 92 H 135/62 100 01/04/21 18:00 93 H 134/77 95 01/04/21 17:30 82 145/71 05 17:00 82 142/72 100 01/04/21 16:30 83 140/68 100 01/04/21 16:00 81 86 18 132/71 100 05 15:59 99.0 F 79 18 133/64 100 01/04/21 15:40 80 133/64 05 15:30 82 130/67 100 05 15:28 85 130/67 99 01/04/21 15:15 85 130/67 05 15:01 81 118/64 01/04/21 15:00 79 118/64 100 01/04/21 14:45 84 121/69 01/04/21 14:30 85 121/66 99 01/04/21 14:15 83 121/64 01/04/21 14:02 80 117/64 01/04/21 14:00 80 117/64 99 01/04/21 13:45 86 113/66 01/04/21 13:30 82 132/65 99 01/04/21 13:15 84 122/66 01/04/21 13:00 82 128/65 99 01/04/21 12:45 84 119/63 01/04/21 12:30 81 137/62 99 01/04/21 12:24 86 116/68 97 01/04/21 12:15 84 142/73 01/04/21 12:10 85 146/69 01/04/21 12:00 99.0 F 85 85 18 146/69 97 - Physical Examination General: Other (on the vent) HEENT: Positive: PERRL Neck: Positive: neck supple Cardiac: Positive: Reg Rate and Rhythm Neuro: Positive: Weakness (Sedated, on the vent) Extremities: Absent: edema - Labs and Meds Comprehensive Metabolic Panel 01/05/21 Range/Units 04:49 Sodium 137 (137-145) mmol/L Potassium 3.6 (3.6-5.0) mmol/L Chloride 96.9 L (98-107) mmol/L Carbon Dioxide 27 (22-30) mmol/L BUN 57 H (9-20) mg/dL Creatinine 6.7 H (0.8-1.3) mg/dL Glucose 135 H (75-100) mg/dL Calcium 8.0 L (8.4-10.2) mg/dL - Allied health notes Allied health notes reviewed: nursing
--- NOTE | 2021-01-05 11:59 | Progress Note ---
Assessment and Plan Cultures: 12/22/2020 blood culture: Streptococcus bovis, Prevotella 12/22/2020 PD fluid culture: No growth 12/24/2020 tracheal aspirate culture: Gwendolyn albicans (likely a colonizer) 12/24/2020 blood culture: No growth A/P: 60-year-old male with ESRD on PD, Crohn's disease, CHF, gastroesophageal reflux disease was admitted to the hospital with complaints of abdominal pain and fever: #Severe sepsis with shock: Remarkable improvement, off pressors (on Levophed and vasopressin), leukocytosis improving. Secondary to small bowel obstruction/necrotic bowel with associated peritonitis. Status post exploratory laparotomy on 12/23/2020 with extensive lysis, primary anastomosis, found to have necrotic segment of small bowel. #Small bowel obstruction/necrotic bowel: with concern for PD associated pe ritonitis: Nephrology and general surgery following. Status post exploratory laparotomy on 12/23/2020 with extensive lysis, primary anastomosis, found to have necrotic segment of small bowel. PD catheter remains in place. S/p ex lap, resection of perforated anastamosis, washout and abthera wound vac placement on 01/01. Repeat CT abdomen shows no new abscesses, noted small free fluid. S/p Exploratory laparotomy, Right hemicolectomy, Peritoneal lavage, Partial omentectomy, ABThera wound VAC placement on 01/03/2021. #Streptococcus bovis bacteremia and Prevotella bacteremia: secondary to above. TTE without obvious vegetations. Repeat blood cultures negative. #ESRD: Renally dose antibiotics. Used to be on PD, cath remains in place. Now on HD. #Elevated LFTs: Secondary to sepsis. #Acute respiratory failure: extubated, then re-intubated 12/31/2020. #Anemia: Severe. Recs: -Continue IV Zosyn, renally dosed for Strep bacteremia treatment till 01/06/2021 -On TPN will follow Millicent Weber MD [facility] ([facility]) Office [phone] Subjective Date of service: 01/05/21 Principal diagnosis: Ac hypoxemic resp failure; Severe Sepsis; Peritonitis; Acute SBO; ESRD; CHF Interval history: Remains intubated, sedated, on TPN. No fever. Objective - Exam Narrative Exam: General appearance: Sedated, intubated open eyes Eyes: anicteric sclerae, moist conjunctivae; no lid-lag; PERRLA HENT: Normocephalic, Atraumatic; normal external ears, nares open, oropharynx limited with endotracheal tube, tongue out with edema Neck: supple, tracheal midline, no JVD Lungs: Coarse breath sounds bilaterally CV: Tachycardic Abdomen: Soft tender diffusely midline surgical wound with Abthera Wound VAC Extremities: no edema, no cyanosis Skin: No rash. Psych: Sedated Neuro: Sedated - Constitutional Vitals: Vital Signs Temp Pulse Resp BP Pulse Ox 98.9 F 90 16 144/64 100 01/05/21 07:37 01/05/21 10:32 01/05/21 10:00 01/05/21 10:32 01/05/21 10:00 Temperature -Last 24 Hours Temperature 98.9 F Temperature 98.7 F Temperature 98.7 F Temperature 98.4 F Temperature 98.5 F Temperature 99.0 F Temperature 99.0 F - Labs CBC & Chem 7: 01/04/21 04:38 01/05/21 04:49 Labs: Abnormal lab results 01/01/21 01/04/21 01/04/21 Range/Units 11:31 12:04 18:04 POC ABG pO2 (83-108) mmHg ABG Hemoglobin (12.0-17.5) ABG Oxyhemoglobin (94-98) ABG Sodium (136.0-145.0) mmol/L ABG Glucose (65-95) mg/dL Chloride (98-107) mmol/L BUN (9-20) mg/dL Creatinine (0.8-1.3) mg/dL Glucose (75-100) mg/dL POC Glucose 125 H 131 H (70-105) mg/dL Calcium (8.4-10.2) mg/dL Arterial Blood Glucose (65-95) mg/dL Arterial Blood Ionized Calcium (4.6-5.3) mg/dL Crossmatch See Detail 01/04/21 01/05/21 01/05/21 Range/Units 23:41 03:09 04:49 POC ABG pO2 62.8 L (83-108) mmHg ABG Hemoglobin 9.5 L (12.0-17.5) ABG Oxyhemoglobin 92.0 L (94-98) ABG Sodium 130.1 L (136.0-145.0) mmol/L ABG Glucose 148 H (65-95) mg/dL Chloride 96.9 L (98-107) mmol/L BUN 57 H (9-20) mg/dL Creatinine 6.7 H (0.8-1.3) mg/dL Glucose 135 H (75-100) mg/dL POC Glucose 132 H (70-105) mg/dL Calcium 8.0 L (8.4-10.2) mg/dL Arterial Blood Glucose 148 H (65-95) mg/dL Arterial Blood Ionized Calcium 4.1 L (4.6-5.3) mg/dL Crossmatch 01/05/21 01/05/21 Range/Units 05:04 11:48 POC ABG pO2 (83-108) mmHg ABG Hemoglobin (12.0-17.5) ABG Oxyhemoglobin (94-98) ABG Sodium (136.0-145.0) mmol/L ABG Glucose (65-95) mg/dL Chloride (98-107) mmol/L BUN (9-20) mg/dL Creatinine (0.8-1.3) mg/dL Glucose (75-100) mg/dL POC Glucose 147 H 162 H (70-105) mg/dL Calcium (8.4-10.2) mg/dL Arterial Blood Glucose (65-95) mg/dL Arterial Blood Ionized Calcium (4.6-5.3) mg/dL Crossmatch
[2021-01-05 13:09] LABS: Hematocrit 27.6 % (35.5-45.6); Hemoglobin 9.3 gm/dl (11.8-15.2); Mean Corpuscular HGB Conc 34 % (32-34); Mean Corpuscular Volume 91 fl (84-94); Platelet Count 201 K/mm3 (140-440); Red Blood Count 3.03 M/mm3 (3.65-5.03); Red Cell Distribution Width 16.5 % (13.2-15.2)
--- NOTE | 2021-01-05 13:14 | Progress Note ---
Assessment and Plan Acute hypoxemic respiratory failure, on mechanical ventilatory support. Severe Sepsis Peritonitis Acute small-bowel obstruction with tissue necrosis. End-stage renal disease, on dialysis. Hypertension. Crohn's disease. Gastroesophageal reflux disease. Heart failure with reduced ejection fraction. Hyperkalemia. Anemia that is normocytic. Lactic acidosis. Oropharyngeal dysphagia - tentatively back to OR tomorrow - repeat CBC and address - repeat CXR in am - reduce set rate to 12/min - continue total parenteral nutrition - wean vasopressors for target MAP > 65 mmHg - continue wound care per RN/WCN - continue care as below otherwise; - continue Daily SAT and SBT assessment as tolerated - continue to wean supplemental oxygen for target O2 sat's > 92% acutely - VAP bundle addressed - continue lung protective strategies - continue bronchodilators with pulmonary hygiene per RT - wean per pulmonary driven protocols otherwise - HD/UF per nephrology prescription for toxin and volume control - avoid nephrotoxins, renally dose all medications - continue accuchecks with glycemic control per SSI (While critically ill target blood glucose of 140-180 mg/dL; avoid hypoglycemia) - sedation prn for target RASS 0 to -1 - continue to avoid benzodiazepine's, reduce the possibility of delirium - complete AB's per ID rec's - prn analgesia per CPOT score - Maintenance of sleep-wake cycle, avoid delirium - enteral nutritional support at goal rate as tolerated (once cleared by surgeon) - G.I. & VTE prophylaxis - PT/OT/ROM exercises - continue mobility protocols for pressure ulcer prophylaxis - Monitor hemodynamics closely - continue other care per attending / other consultants - discharge planning ongoing concurrently .... Re-evaluate in am & prn CONDITION: CRITICAL PROGNOSIS: GUARDED CODE STATUS: FULL CODE The high probability of a clinically significant, sudden or life-threatening deterioration of the [respiratory, cardiovascular, GI & neurologic] system(s) required my full and direct attention, intervention and personal management. The aggregate critical care time was [36] minutes without overlap. Time includes spent on; [x] Data Review and interpretation [x] Patient assessment and monitoring of vital signs [x] Documentation [x] Medication orders and management Subjective Date of service: 01/05/21 Principal diagnosis: Ac hypoxemic resp failure; Severe Sepsis; Peritonitis; Acute SBO; ESRD; CHF Interval history: Patient is seen today for: Ac hypoxemic resp failure; Severe Sepsis; Peritonitis; Acute SBO; ESRD on Dialysis; HTN; Crohn's disease; HFrEF Seen and examined at bedside; 24hour events reviewed; nursing and respiratory care staff consulted; no adverse overnight events reported to me; resting in bed; denies acute pain issues; no gross bleeding; afebrile; no emesis or overt aspiration Objective Vital Signs - 12hr 01/05/21 01/05/21 01/05/21 01:30 02:00 02:30 Temperature Pulse Rate 80 82 79 Pulse Rate [ From Monitor] Respiratory 25 H 22 21 Rate Blood Pressure 158/75 156/76 159/74 O2 Sat by Pulse 100 98 97 Oximetry 01/05/21 01/05/21 01/05/21 02:51 02:52 03:00 Temperature Pulse Rate 82 83 80 Pulse Rate [ From Monitor] Respiratory 20 Rate Blood Pressure 165/78 165/78 166/75 O2 Sat by Pulse Oximetry 01/05/21 01/05/21 01/05/21 03:30 04:00 04:30 Temperature 98.7 F Pulse Rate 80 85 92 H Pulse Rate [ 85 From Monitor] Respiratory 19 27 H 28 H Rate Blood Pressure 156/77 167/76 179/80 O2 Sat by Pulse 98 97 Oximetry 01/05/21 01/05/21 01/05/21 04:32 05:00 05:09 Temperature Pulse Rate 83 97 H 93 H Pulse Rate [ From Monitor] Respiratory 24 Rate Blood Pressure 165/78 189/81 189/81 O2 Sat by Pulse 98 98 Oximetry 01/05/21 01/05/21 01/05/21 05:10 05:30 06:00 Temperature Pulse Rate 93 H 88 92 H Pulse Rate [ From Monitor] Respiratory 20 26 H Rate Blood Pressure 189/81 156/69 182/74 O2 Sat by Pulse 98 Oximetry 01/05/21 01/05/21 01/05/21 06:30 07:00 07:30 Temperature Pulse Rate 95 H 74 96 H Pulse Rate [ From Monitor] Respiratory 31 H 37 H 16 Rate Blood Pressure 189/76 181/79 184/78 O2 Sat by Pulse 100 100 Oximetry 01/05/21 01/05/21 01/05/21 07:37 08:00 08:30 Temperature 98.9 F Pulse Rate 96 H 96 H Pulse Rate [ 94 H From Monitor] Respiratory 25 H 19 Rate Blood Pressure 166/71 167/76 O2 Sat by Pulse 100 98 Oximetry 01/05/21 01/05/21 01/05/21 09:00 09:25 09:30 Temperature Pulse Rate 92 H 91 H 90 Pulse Rate [ From Monitor] Respiratory 17 23 Rate Blood Pressure 170/68 151/66 151/71 O2 Sat by Pulse 98 100 100 Oximetry 01/05/21 01/05/21 01/05/21 09:39 10:00 10:30 Temperature Pulse Rate 92 H 91 H 88 Pulse Rate [ From Monitor] Respiratory 16 21 Rate Blood Pressure 158/71 153/62 144/64 O2 Sat by Pulse 100 99 Oximetry 01/05/21 01/05/21 01/05/21 10:32 11:00 11:30 Temperature Pulse Rate 90 80 82 Pulse Rate [ From Monitor] Respiratory 13 13 Rate Blood Pressure 144/64 135/63 134/59 O2 Sat by Pulse 99 98 Oximetry 01/05/21 01/05/21 01/05/21 12:00 12:11 12:28 Temperature 98.1 F Pulse Rate 85 85 Pulse Rate [ 85 From Monitor] Respiratory 18 Rate Blood Pressure 153/66 153/66 O2 Sat by Pulse 98 99 Oximetry 01/05/21 12:30 Temperature Pulse Rate 84 Pulse Rate [ From Monitor] Respiratory 13 Rate Blood Pressure 144/66 O2 Sat by Pulse 99 Oximetry Constitutional: no acute distress, other (elderly male riding set rate on MVS) Eyes: non-icteric ENT: oropharynx moist, other (ETT 24 cm LEEANN) Neck: supple, no lymphadenopathy, no JVD Effort: normal Ascultation: Bilateral: diminished breath sounds, rhonchi (scant, bases) Percussion: Bilateral: not dull Cardiovascular: regular rate and rhythm Gastrointestinal: hypoactive bowel sounds, soft, non-tender, non-distended (protuberant), other (Midline abdominal incision with wound-vac in place) Integumentary: other (Midline abdominal incision with wound-vac in place) Extremities: no cyanosis, no edema, pulses normal, no ischemia or petechiae Neurologic: non-focal exam (grossly), pupils equal and round, CN II-XII normal, motor strength normal and (sedated) Psychiatric: mood appropriate, affect normal CBC and BMP: 01/06/21 07:03 01/06/21 04:45 ABG, PT/INR, D-dimer: ABG ABG pH 7.425 (7.320-7.450) 01/05/21 03:09 POC ABG pCO2 43.2 mmHg (32.0-48.0) 01/05/21 03:09 ABG pCO2 33.9 mm Hg 12/31/20 09:38 POC ABG pO2 62.8 mmHg (83-108) L 01/05/21 03:09 ABG pO2 354.0 mm Hg (80.0-90.0) H 12/31/20 09:38 POC ABG HCO3 27.7 01/05/21 03:09 ABG O2 Saturation 93.1 (0-100) 01/05/21 03:09 PT/INR, D-dimer PT 16.9 Sec. (12.2-14.9) H 01/01/21 12:45 INR 1.39 (0.87-1.13) H 01/01/21 12:45 Abnormal lab findings: Abnormal Labs 12/22/20 12/22/20 12/22/20 14:38 14:38 14:38 WBC RBC Hgb 11.2 L Hct 35.0 L MCV MCHC RDW 16.7 H Plt Count Lymph % (Auto) [place] % (Auto) Lymph # (Auto) Seg Neutrophils % Seg Neuts % (Manual) 94.0 H Lymphocytes % (Manual) 5.0 L Monocytes % (Manual) Seg Neutrophils # Man Lymphocytes # (Manual) 0.3 L Monocytes # (Manual) PT INR ABG pH POC ABG pCO2 POC ABG pO2 ABG pO2 ABG HCO3 ABG O2 Saturation ABG Base Excess ABG Hemoglobin ABG Oxyhemoglobin ABG Sodium ABG Potassium ABG Chloride ABG Glucose Oxyhemoglobin Sodium Potassium Chloride Carbon Dioxide BUN 58 H Creatinine 13.2 H Glucose 113 H POC Glucose Lactic Acid 3.60 H* Calcium Phosphorus Magnesium Total Bilirubin 1.30 H AST ALT Alkaline Phosphatase 155 H Total Protein Albumin Triglycerides Arterial Blood Glucose Arterial Blood Ionized Calcium Crossmatch 12/22/20 12/22/20 12/23/20 16:26 17:47 05:22 WBC RBC Hgb Hct MCV MCHC RDW Plt Count Lymph % (Auto) [place] % (Auto) Lymph # (Auto) Seg Neutrophils % Seg Neuts % (Manual) Lymphocytes % (Manual) Monocytes % (Manual) Seg Neutrophils # Man Lymphocytes # (Manual) Monocytes # (Manual) PT INR ABG pH POC ABG pCO2 POC ABG pO2 ABG pO2 ABG HCO3 ABG O2 Saturation ABG Base Excess ABG Hemoglobin ABG Oxyhemoglobin ABG Sodium ABG Potassium ABG Chloride ABG Glucose Oxyhemoglobin Sodium Potassium Chloride Carbon Dioxide BUN Creatinine Glucose POC Glucose Lactic Acid 2.80 H* 3.10 H* 2.30 H* Calcium Phosphorus Magnesium Total Bilirubin AST ALT Alkaline Phosphatase Total Protein Albumin Triglycerides Arterial Blood Glucose Arterial Blood Ionized Calcium Crossmatch 12/23/20 12/23/20 12/23/20 05:22 05:22 06:35 WBC 12.1 H RBC Hgb 11.0 L Hct 33.7 L MCV MCHC RDW 16.9 H Plt Count Lymph % (Auto) [place] % (Auto) Lymph # (Auto) Seg Neutrophils % Seg Neuts % (Manual) 93.0 H Lymphocytes % (Manual) 1.0 L Monocytes % (Manual) Seg Neutrophils # Man 11.3 H Lymphocytes # (Manual) 0.1 L Monocytes # (Manual) PT INR ABG pH POC ABG pCO2 POC ABG pO2 ABG pO2 ABG HCO3 ABG O2 Saturation ABG Base Excess ABG Hemoglobin ABG Oxyhemoglobin ABG Sodium ABG Potassium ABG Chloride ABG Glucose Oxyhemoglobin Sodium Potassium 5.7 H D Chloride Carbon Dioxide BUN 73 H Creatinine 14.2 H Glucose POC Glucose Lactic Acid 2.30 H* Calcium 7.9 L Phosphorus Magnesium Total Bilirubin 1.40 H AST 119 H ALT 130 H Alkaline Phosphatase 183 H Total Protein 6.1 L Albumin 3.6 L Triglycerides Arterial Blood Glucose Arterial Blood Ionized Calcium Crossmatch 12/23/20 12/23/20 12/23/20 11:40 13:53 16:47 WBC RBC Hgb 10.0 L Hct 30.4 L MCV MCHC RDW Plt Count Lymph % (Auto) [place] % (Auto) Lymph # (Auto) Seg Neutrophils % Seg Neuts % (Manual) Lymphocytes % (Manual) Monocytes % (Manual) Seg Neutrophils # Man Lymphocytes # (Manual) Monocytes # (Manual) PT INR ABG pH POC ABG pCO2 POC ABG pO2 137.5 H ABG pO2 ABG HCO3 ABG O2 Saturation ABG Base Excess ABG Hemoglobin 9.7 L ABG Oxyhemoglobin ABG Sodium 134.1 L ABG Potassium 6.6 H ABG Chloride ABG Glucose 103 H Oxyhemoglobin Sodium Potassium Chloride Carbon Dioxide BUN Creatinine Glucose POC Glucose Lactic Acid Calcium Phosphorus Magnesium Total Bilirubin AST ALT Alkaline Phosphatase Total Protein Albumin Triglycerides Arterial Blood Glucose 103 H Arterial Blood Ionized Calcium 3.8 L Crossmatch See Detail 12/23/20 12/23/20 12/24/20 20:35 20:40 01:20 WBC RBC Hgb Hct MCV MCHC RDW Plt Count Lymph % (Auto) [place] % (Auto) Lymph # (Auto) Seg Neutrophils % Seg Neuts % (Manual) Lymphocytes % (Manual) Monocytes % (Manual) Seg Neutrophils # Man Lymphocytes # (Manual) Monocytes # (Manual) PT INR ABG pH 7.252 L POC ABG pCO2 POC ABG pO2 ABG pO2 50.1 L ABG HCO3 ABG O2 Saturation 81.1 L ABG Base Excess -5.9 L ABG Hemoglobin 12.1 L ABG Oxyhemoglobin ABG Sodium ABG Potassium ABG Chloride ABG Glucose Oxyhemoglobin 78.6 L Sodium 134 L Potassium 6.9 H* D 6.3 H* Chloride Carbon Dioxide 18 L 20 L BUN 87 H 91 H Creatinine 15.3 H 15.3 H Glucose 103 H POC Glucose Lactic Acid Calcium 6.9 L 7.5 L Phosphorus Magnesium Total Bilirubin AST ALT Alkaline Phosphatase Total Protein Albumin Triglycerides Arterial Blood Glucose Arterial Blood Ionized Calcium Crossmatch 12/24/20 12/24/20 12/24/20 04:00 10:29 10:29 WBC RBC 3.49 L Hgb 10.5 L Hct 31.2 L MCV MCHC RDW 17.5 H Plt Count 124 L Lymph % (Auto) 3.7 L [place] % (Auto) 9.8 H Lymph # (Auto) 0.2 L Seg Neutrophils % 85.9 H Seg Neuts % (Manual) Lymphocytes % (Manual) Monocytes % (Manual) Seg Neutrophils # Man Lymphocytes # (Manual) Monocytes # (Manual) PT INR ABG pH POC ABG pCO2 28.1 L POC ABG pO2 ABG pO2 ABG HCO3 ABG O2 Saturation ABG Base Excess ABG Hemoglobin ABG Oxyhemoglobin ABG Sodium 133.9 L ABG Potassium 5.3 H ABG Chloride 108.0 H ABG Glucose Oxyhemoglobin Sodium Potassium 5.6 H Chloride Carbon Dioxide 19 L BUN 99 H Creatinine 16.9 H Glucose 52 L POC Glucose Lactic Acid Calcium 7.6 L Phosphorus Magnesium Total Bilirubin 3.50 H AST 67 H ALT 71 H Alkaline Phosphatase Total Protein 3.5 L D Albumin 2.1 L Triglycerides Arterial Blood Glucose Arterial Blood Ionized Calcium 4.0 L Crossmatch 12/25/20 12/25/20 12/25/20 03:33 04:00 04:00 WBC 3.8 L RBC 2.90 L Hgb 8.6 L Hct 25.7 L MCV MCHC RDW 16.7 H Plt Count 113 L Lymph % (Auto) [place] % (Auto) Lymph # (Auto) Seg Neutrophils % Seg Neuts % (Manual) Lymphocytes % (Manual) Monocytes % (Manual) Seg Neutrophils # Man Lymphocytes # (Manual) Monocytes # (Manual) PT INR ABG pH 7.544 H POC ABG pCO2 28.2 L POC ABG pO2 62.8 L ABG pO2 ABG HCO3 ABG O2 Saturation ABG Base Excess ABG Hemoglobin 9.3 L ABG Oxyhemoglobin 93.0 L ABG Sodium 130.3 L ABG Potassium ABG Chloride ABG Glucose 97 H Oxyhemoglobin Sodium Potassium Chloride Carbon Dioxide BUN 62 H Creatinine 11.4 H Glucose POC Glucose Lactic Acid Calcium 7.7 L Phosphorus 5.00 H Magnesium Total Bilirubin AST ALT Alkaline Phosphatase Total Protein Albumin Triglycerides Arterial Blood Glucose 97 H Arterial Blood Ionized Calcium 3.9 L Crossmatch 12/26/20 12/26/20 12/27/20 04:46 Unknown 03:40 WBC 4.1 L RBC 2.61 L Hgb 7.8 L Hct 23.4 L MCV MCHC RDW 17.1 H Plt Count 119 L Lymph % (Auto) 5.3 L [place] % (Auto) 10.6 H Lymph # (Auto) 0.2 L Seg Neutrophils % 78.8 H Seg Neuts % (Manual) Lymphocytes % (Manual) Monocytes % (Manual) Seg Neutrophils # Man Lymphocytes # (Manual) Monocytes # (Manual) PT INR ABG pH 7.333 L 7.332 L POC ABG pCO2 POC ABG pO2 ABG pO2 ABG HCO3 26.9 H ABG O2 Saturation ABG Base Excess -2.4 L ABG Hemoglobin 6.8 L 7.2 L ABG Oxyhemoglobin ABG Sodium ABG Potassium ABG Chloride ABG Glucose Oxyhemoglobin 93.0 L 93.1 L Sodium Potassium Chloride Carbon Dioxide BUN Creatinine Glucose POC Glucose Lactic Acid Calcium Phosphorus Magnesium Total Bilirubin AST ALT Alkaline Phosphatase Total Protein Albumin Triglycerides Arterial Blood Glucose Arterial Blood Ionized Calcium Crossmatch 12/27/20 12/27/20 12/27/20 06:40 06:40 11:22 WBC 4.4 L RBC 2.49 L Hgb 7.4 L Hct 22.4 L MCV MCHC RDW 17.1 H Plt Count 111 L Lymph % (Auto) 6.7 L [place] % (Auto) 12.6 H Lymph # (Auto) 0.3 L Seg Neutrophils % 77.6 H Seg Neuts % (Manual) Lymphocytes % (Manual) Monocytes % (Manual) Seg Neutrophils # Man Lymphocytes # (Manual) Monocytes # (Manual) PT INR ABG pH POC ABG pCO2 POC ABG pO2 ABG pO2 ABG HCO3 ABG O2 Saturation ABG Base Excess ABG Hemoglobin ABG Oxyhemoglobin ABG Sodium ABG Potassium ABG Chloride ABG Glucose Oxyhemoglobin Sodium Potassium Chloride Carbon Dioxide BUN 64 H Creatinine 9.8 H Glucose 147 H POC Glucose 134 H Lactic Acid Calcium 8.3 L Phosphorus 5.00 H Magnesium Total Bilirubin 3.70 H AST 72 H ALT Alkaline Phosphatase 142 H Total Protein 5.1 L D Albumin 2.9 L Triglycerides Arterial Blood Glucose Arterial Blood Ionized Calcium Crossmatch 12/27/20 12/27/20 12/28/20 17:29 23:31 03:09 WBC RBC Hgb Hct MCV MCHC RDW Plt Count Lymph % (Auto) [place] % (Auto) Lymph # (Auto) Seg Neutrophils % Seg Neuts % (Manual) Lymphocytes % (Manual) Monocytes % (Manual) Seg Neutrophils # Man Lymphocytes # (Manual) Monocytes # (Manual) PT INR ABG pH 7.474 H POC ABG pCO2 POC ABG pO2 ABG pO2 ABG HCO3 ABG O2 Saturation ABG Base Excess ABG Hemoglobin 7.8 L ABG Oxyhemoglobin ABG Sodium ABG Potassium ABG Chloride ABG Glucose Oxyhemoglobin Sodium Potassium Chloride Carbon Dioxide BUN Creatinine Glucose POC Glucose 121 H 131 H Lactic Acid Calcium Phosphorus Magnesium Total Bilirubin AST ALT Alkaline Phosphatase Total Protein Albumin Triglycerides Arterial Blood Glucose Arterial Blood Ionized Calcium Crossmatch 12/28/20 12/28/20 12/28/20 05:37 05:40 05:40 WBC 4.3 L RBC 2.40 L Hgb 7.2 L Hct 21.5 L MCV MCHC RDW 17.4 H Plt Count 112 L Lymph % (Auto) 6.5 L [place] % (Auto) 16.7 H Lymph # (Auto) 0.3 L Seg Neutrophils % 71.1 H Seg Neuts % (Manual) Lymphocytes % (Manual) Monocytes % (Manual) Seg Neutrophils # Man Lymphocytes # (Manual) Monocytes # (Manual) PT INR ABG pH POC ABG pCO2 POC ABG pO2 ABG pO2 ABG HCO3 ABG O2 Saturation ABG Base Excess ABG Hemoglobin ABG Oxyhemoglobin ABG Sodium ABG Potassium ABG Chloride ABG Glucose Oxyhemoglobin Sodium Potassium Chloride Carbon Dioxide BUN 85 H Creatinine 11.5 H Glucose 132 H POC Glucose 121 H Lactic Acid Calcium 8.2 L Phosphorus Magnesium 2.40 H Total Bilirubin 3.80 H AST 70 H ALT Alkaline Phosphatase 176 H Total Protein 5.0 L Albumin 2.9 L Triglycerides Arterial Blood Glucose Arterial Blood Ionized Calcium Crossmatch 12/28/20 12/28/20 12/28/20 11:34 15:00 17:35 WBC RBC Hgb Hct MCV MCHC RDW Plt Count Lymph % (Auto) [place] % (Auto) Lymph # (Auto) Seg Neutrophils % Seg Neuts % (Manual) Lymphocytes % (Manual) Monocytes % (Manual) Seg Neutrophils # Man Lymphocytes # (Manual) Monocytes # (Manual) PT INR ABG pH 7.461 H POC ABG pCO2 POC ABG pO2 72.2 L ABG pO2 ABG HCO3 ABG O2 Saturation ABG Base Excess ABG Hemoglobin 8.2 L ABG Oxyhemoglobin 93.6 L ABG Sodium 134.1 L ABG Potassium 3.2 L ABG Chloride ABG Glucose 135 H Oxyhemoglobin Sodium Potassium Chloride Carbon Dioxide BUN Creatinine Glucose POC Glucose 137 H 144 H Lactic Acid Calcium Phosphorus Magnesium Total Bilirubin AST ALT Alkaline Phosphatase Total Protein Albumin Triglycerides Arterial Blood Glucose 135 H Arterial Blood Ionized Calcium 4.4 L Crossmatch 12/28/20 12/28/20 12/29/20 19:44 Unknown 00:21 WBC RBC Hgb Hct MCV MCHC RDW Plt Count Lymph % (Auto) [place] % (Auto) Lymph # (Auto) Seg Neutrophils % Seg Neuts % (Manual) Lymphocytes % (Manual) Monocytes % (Manual) Seg Neutrophils # Man Lymphocytes # (Manual) Monocytes # (Manual) PT INR ABG pH 7.474 H POC ABG pCO2 POC ABG pO2 ABG pO2 ABG HCO3 ABG O2 Saturation ABG Base Excess ABG Hemoglobin 7.8 L ABG Oxyhemoglobin ABG Sodium 133.2 L ABG Potassium ABG Chloride ABG Glucose 139 H Oxyhemoglobin Sodium 135 L Potassium Chloride 96.6 L Carbon Dioxide BUN 47 H Creatinine 7.4 H Glucose 130 H POC Glucose 142 H Lactic Acid Calcium 8.3 L Phosphorus Magnesium Total Bilirubin AST ALT Alkaline Phosphatase Total Protein Albumin Triglycerides Arterial Blood Glucose 139 H Arterial Blood Ionized Calcium 4.3 L Crossmatch 12/29/20 12/29/20 12/29/20 05:16 05:16 05:26 WBC RBC 2.53 L Hgb 7.7 L Hct 22.8 L MCV MCHC RDW 17.0 H Plt Count 130 L Lymph % (Auto) [place] % (Auto) Lymph # (Auto) Seg Neutrophils % Seg Neuts % (Manual) 79.0 H Lymphocytes % (Manual) 9.0 L Monocytes % (Manual) Seg Neutrophils # Man Lymphocytes # (Manual) 0.6 L Monocytes # (Manual) PT INR ABG pH POC ABG pCO2 POC ABG pO2 ABG pO2 ABG HCO3 ABG O2 Saturation ABG Base Excess ABG Hemoglobin ABG Oxyhemoglobin ABG Sodium ABG Potassium ABG Chloride ABG Glucose Oxyhemoglobin Sodium Potassium 3.4 L Chloride 96.6 L Carbon Dioxide BUN 59 H Creatinine 8.3 H Glucose 127 H POC Glucose 141 H Lactic Acid Calcium 8.2 L Phosphorus Magnesium Total Bilirubin 3.00 H AST 88 H ALT Alkaline Phosphatase 188 H Total Protein 5.1 L Albumin 2.8 L Triglycerides Arterial Blood Glucose Arterial Blood Ionized Calcium Crossmatch 12/29/20 12/29/20 12/29/20 11:33 17:29 23:22 WBC RBC Hgb Hct MCV MCHC RDW Plt Count Lymph % (Auto) [place] % (Auto) Lymph # (Auto) Seg Neutrophils % Seg Neuts % (Manual) Lymphocytes % (Manual) Monocytes % (Manual) Seg Neutrophils # Man Lymphocytes # (Manual) Monocytes # (Manual) PT INR ABG pH POC ABG pCO2 POC ABG pO2 ABG pO2 ABG HCO3 ABG O2 Saturation ABG Base Excess ABG Hemoglobin ABG Oxyhemoglobin ABG Sodium ABG Potassium ABG Chloride ABG Glucose Oxyhemoglobin Sodium Potassium Chloride Carbon Dioxide BUN Creatinine Glucose POC Glucose 144 H 130 H 117 H Lactic Acid Calcium Phosphorus Magnesium Total Bilirubin AST ALT Alkaline Phosphatase Total Protein Albumin Triglycerides Arterial Blood Glucose Arterial Blood Ionized Calcium Crossmatch 12/30/20 12/30/20 12/30/20 05:23 08:15 09:00 WBC RBC Hgb Hct MCV MCHC RDW Plt Count Lymph % (Auto) [place] % (Auto) Lymph # (Auto) Seg Neutrophils % Seg Neuts % (Manual) Lymphocytes % (Manual) Monocytes % (Manual) Seg Neutrophils # Man Lymphocytes # (Manual) Monocytes # (Manual) PT INR ABG pH POC ABG pCO2 POC ABG pO2 ABG pO2 ABG HCO3 ABG O2 Saturation ABG Base Excess ABG Hemoglobin ABG Oxyhemoglobin ABG Sodium ABG Potassium ABG Chloride ABG Glucose Oxyhemoglobin Sodium 135 L Potassium Chloride 95.9 L Carbon Dioxide BUN 85 H Creatinine 10.6 H Glucose 128 H POC Glucose 135 H 127 H Lactic Acid Calcium 8.3 L Phosphorus Magnesium Total Bilirubin 2.40 H AST 85 H ALT Alkaline Phosphatase 216 H Total Protein 5.3 L Albumin 2.6 L Triglycerides 155 H Arterial Blood Glucose Arterial Blood Ionized Calcium Crossmatch 12/30/20 12/30/20 12/30/20 09:00 11:53 15:49 WBC RBC 2.61 L Hgb 7.8 L Hct 23.7 L MCV MCHC RDW 17.3 H Plt Count Lymph % (Auto) [place] % (Auto) Lymph # (Auto) Seg Neutrophils % Seg Neuts % (Manual) Lymphocytes % (Manual) Monocytes % (Manual) Seg Neutrophils # Man Lymphocytes # (Manual) Monocytes # (Manual) PT INR ABG pH POC ABG pCO2 POC ABG pO2 ABG pO2 ABG HCO3 ABG O2 Saturation ABG Base Excess ABG Hemoglobin ABG Oxyhemoglobin ABG Sodium ABG Potassium ABG Chloride ABG Glucose Oxyhemoglobin Sodium Potassium Chloride Carbon Dioxide BUN Creatinine Glucose POC Glucose 155 H 146 H Lactic Acid Calcium Phosphorus Magnesium Total Bilirubin AST ALT Alkaline Phosphatase Total Protein Albumin Triglycerides Arterial Blood Glucose Arterial Blood Ionized Calcium Crossmatch 12/30/20 12/30/20 12/31/20 17:53 23:45 03:56 WBC RBC Hgb Hct MCV MCHC RDW Plt Count Lymph % (Auto) [place] % (Auto) Lymph # (Auto) Seg Neutrophils % Seg Neuts % (Manual) Lymphocytes % (Manual) Monocytes % (Manual) Seg Neutrophils # Man Lymphocytes # (Manual) Monocytes # (Manual) PT INR ABG pH POC ABG pCO2 POC ABG pO2 49.4 L ABG pO2 ABG HCO3 ABG O2 Saturation ABG Base Excess ABG Hemoglobin 10.3 L ABG Oxyhemoglobin 84.2 L ABG Sodium 133.1 L ABG Potassium ABG Chloride ABG Glucose 173 H Oxyhemoglobin Sodium Potassium Chloride Carbon Dioxide BUN Creatinine Glucose POC Glucose 139 H 173 H Lactic Acid Calcium Phosphorus Magnesium Total Bilirubin AST ALT Alkaline Phosphatase Total Protein Albumin Triglycerides Arterial Blood Glucose 173 H Arterial Blood Ionized Calcium Crossmatch 12/31/20 12/31/20 12/31/20 05:07 06:51 06:51 WBC 20.3 H RBC 3.32 L Hgb 9.8 L Hct 30.3 L D MCV MCHC RDW 17.3 H Plt Count Lymph % (Auto) [place] % (Auto) Lymph # (Auto) Seg Neutrophils % Seg Neuts % (Manual) 87.0 H Lymphocytes % (Manual) 10.0 L Monocytes % (Manual) Seg Neutrophils # Man 17.7 H Lymphocytes # (Manual) Monocytes # (Manual) PT INR ABG pH POC ABG pCO2 POC ABG pO2 ABG pO2 ABG HCO3 ABG O2 Saturation ABG Base Excess ABG Hemoglobin ABG Oxyhemoglobin ABG Sodium ABG Potassium ABG Chloride ABG Glucose Oxyhemoglobin Sodium Potassium 5.2 H D Chloride Carbon Dioxide BUN 62 H Creatinine 8.4 H Glucose 116 H POC Glucose 120 H Lactic Acid Calcium Phosphorus Magnesium 1.60 L Total Bilirubin AST ALT Alkaline Phosphatase Total Protein Albumin Triglycerides Arterial Blood Glucose Arterial Blood Ionized Calcium Crossmatch 12/31/20 12/31/20 12/31/20 09:38 12:19 12:22 WBC RBC Hgb Hct MCV MCHC RDW Plt Count Lymph % (Auto) [place] % (Auto) Lymph # (Auto) Seg Neutrophils % Seg Neuts % (Manual) Lymphocytes % (Manual) Monocytes % (Manual) Seg Neutrophils # Man Lymphocytes # (Manual) Monocytes # (Manual) PT INR ABG pH POC ABG pCO2 POC ABG pO2 ABG pO2 354.0 H ABG HCO3 ABG O2 Saturation 99.6 H ABG Base Excess ABG Hemoglobin 9.1 L ABG Oxyhemoglobin ABG Sodium ABG Potassium ABG Chloride ABG Glucose Oxyhemoglobin Sodium Potassium 5.2 H Chloride Carbon Dioxide BUN Creatinine Glucose POC Glucose 132 H Lactic Acid Calcium Phosphorus Magnesium Total Bilirubin AST ALT Alkaline Phosphatase Total Protein Albumin Triglycerides Arterial Blood Glucose Arterial Blood Ionized Calcium Crossmatch 12/31/20 01/01/21 01/01/21 23:23 03:03 05:04 WBC RBC Hgb Hct MCV MCHC RDW Plt Count Lymph % (Auto) [place] % (Auto) Lymph # (Auto) Seg Neutrophils % Seg Neuts % (Manual) Lymphocytes % (Manual) Monocytes % (Manual) Seg Neutrophils # Man Lymphocytes # (Manual) Monocytes # (Manual) PT INR ABG pH POC ABG pCO2 POC ABG pO2 79.6 L ABG pO2 ABG HCO3 ABG O2 Saturation ABG Base Excess ABG Hemoglobin 9.2 L ABG Oxyhemoglobin ABG Sodium 131.6 L ABG Potassium 5.8 H ABG Chloride ABG Glucose 177 H Oxyhemoglobin Sodium Potassium Chloride Carbon Dioxide BUN Creatinine Glucose POC Glucose 174 H 167 H Lactic Acid Calcium Phosphorus Magnesium Total Bilirubin AST ALT Alkaline Phosphatase Total Protein Albumin Triglycerides Arterial Blood Glucose 177 H Arterial Blood Ionized Calcium Crossmatch 01/01/21 01/01/21 01/01/21 07:31 07:31 11:31 WBC 26.1 H RBC 2.95 L Hgb 8.6 L Hct 27.1 L MCV MCHC RDW 18.2 H Plt Count Lymph % (Auto) [place] % (Auto) Lymph # (Auto) Seg Neutrophils % Seg Neuts % (Manual) 96.0 H Lymphocytes % (Manual) 4.0 L Monocytes % (Manual) Seg Neutrophils # Man 25.1 H Lymphocytes # (Manual) 1.0 L Monocytes # (Manual) PT INR ABG pH POC ABG pCO2 POC ABG pO2 ABG pO2 ABG HCO3 ABG O2 Saturation ABG Base Excess ABG Hemoglobin ABG Oxyhemoglobin ABG Sodium ABG Potassium ABG Chloride ABG Glucose Oxyhemoglobin Sodium Potassium 6.0 H Chloride Carbon Dioxide 21 L BUN 89 H Creatinine 10.5 H Glucose 179 H POC Glucose Lactic Acid Calcium Phosphorus Magnesium Total Bilirubin AST ALT Alkaline Phosphatase Total Protein Albumin Triglycerides Arterial Blood Glucose Arterial Blood Ionized Calcium Crossmatch See Detail 01/01/21 01/01/21 01/01/21 11:51 12:45 16:52 WBC RBC Hgb Hct MCV MCHC RDW Plt Count Lymph % (Auto) [place] % (Auto) Lymph # (Auto) Seg Neutrophils % Seg Neuts % (Manual) Lymphocytes % (Manual) Monocytes % (Manual) Seg Neutrophils # Man Lymphocytes # (Manual) Monocytes # (Manual) PT 16.9 H INR 1.39 H ABG pH POC ABG pCO2 POC ABG pO2 ABG pO2 ABG HCO3 ABG O2 Saturation ABG Base Excess ABG Hemoglobin ABG Oxyhemoglobin ABG Sodium ABG Potassium ABG Chloride ABG Glucose Oxyhemoglobin Sodium Potassium Chloride Carbon Dioxide BUN Creatinine Glucose POC Glucose 157 H 177 H Lactic Acid Calcium Phosphorus Magnesium Total Bilirubin AST ALT Alkaline Phosphatase Total Protein Albumin Triglycerides Arterial Blood Glucose Arterial Blood Ionized Calcium Crossmatch 01/01/21 01/01/21 01/01/21 17:58 17:58 20:12 WBC 26.9 H RBC 3.14 L Hgb 9.3 L Hct 29.6 L MCV MCHC RDW 17.5 H Plt Count Lymph % (Auto) [place] % (Auto) Lymph # (Auto) Seg Neutrophils % Seg Neuts % (Manual) 84.0 H Lymphocytes % (Manual) 4.0 L Monocytes % (Manual) 12.0 H Seg Neutrophils # Man 22.6 H Lymphocytes # (Manual) 1.1 L Monocytes # (Manual) 3.2 H PT INR ABG pH POC ABG pCO2 POC ABG pO2 ABG pO2 ABG HCO3 ABG O2 Saturation ABG Base Excess ABG Hemoglobin ABG Oxyhemoglobin ABG Sodium ABG Potassium ABG Chloride ABG Glucose Oxyhemoglobin Sodium 136 L Potassium 6.2 H* Chloride Carbon Dioxide 21 L BUN 92 H Creatinine 10.8 H Glucose 171 H POC Glucose 288 H Lactic Acid Calcium Phosphorus Magnesium Total Bilirubin 2.10 H AST 223 H ALT 100 H Alkaline Phosphatase 206 H Total Protein 4.8 L Albumin 1.9 L Triglycerides Arterial Blood Glucose Arterial Blood Ionized Calcium Crossmatch 01/02/21 01/02/21 01/02/21 00:12 00:45 03:05 WBC RBC Hgb Hct MCV MCHC RDW Plt Count Lymph % (Auto) [place] % (Auto) Lymph # (Auto) Seg Neutrophils % Seg Neuts % (Manual) Lymphocytes % (Manual) Monocytes % (Manual) Seg Neutrophils # Man Lymphocytes # (Manual) Monocytes # (Manual) PT INR ABG pH POC ABG pCO2 POC ABG pO2 81.8 L ABG pO2 ABG HCO3 ABG O2 Saturation ABG Base Excess ABG Hemoglobin 8.0 L ABG Oxyhemoglobin ABG Sodium 129.8 L ABG Potassium 5.4 H ABG Chloride ABG Glucose 257 H Oxyhemoglobin Sodium 136 L Potassium 5.8 H Chloride 96.6 L Carbon Dioxide BUN 95 H Creatinine 11.2 H Glucose 238 H POC Glucose 223 H Lactic Acid Calcium Phosphorus Magnesium Total Bilirubin AST ALT Alkaline Phosphatase Total Protein Albumin Triglycerides Arterial Blood Glucose 257 H Arterial Blood Ionized Calcium 4.0 L Crossmatch 01/02/21 01/02/21 01/02/21 06:25 08:00 08:00 WBC 17.5 H RBC 2.31 L Hgb 6.7 L Hct 22.1 L D MCV 96 H MCHC 30 L RDW 18.4 H Plt Count Lymph % (Auto) [place] % (Auto) Lymph # (Auto) Seg Neutrophils % Seg Neuts % (Manual) Lymphocytes % (Manual) Monocytes % (Manual) Seg Neutrophils # Man Lymphocytes # (Manual) Monocytes # (Manual) PT INR ABG pH POC ABG pCO2 POC ABG pO2 ABG pO2 ABG HCO3 ABG O2 Saturation ABG Base Excess ABG Hemoglobin ABG Oxyhemoglobin ABG Sodium ABG Potassium ABG Chloride ABG Glucose Oxyhemoglobin Sodium 134 L Potassium 5.3 H Chloride 92.9 L Carbon Dioxide BUN 101 H Creatinine 10.9 H Glucose 560 H* POC Glucose 239 H Lactic Acid Calcium 7.6 L Phosphorus 6.50 H Magnesium Total Bilirubin AST ALT Alkaline Phosphatase Total Protein Albumin Triglycerides Arterial Blood Glucose Arterial Blood Ionized Calcium Crossmatch 01/02/21 01/02/21 01/02/21 11:26 15:00 17:57 WBC RBC Hgb Hct MCV MCHC RDW Plt Count Lymph % (Auto) [place] % (Auto) Lymph # (Auto) Seg Neutrophils % Seg Neuts % (Manual) Lymphocytes % (Manual) Monocytes % (Manual) Seg Neutrophils # Man Lymphocytes # (Manual) Monocytes # (Manual) PT INR ABG pH POC ABG pCO2 POC ABG pO2 ABG pO2 ABG HCO3 ABG O2 Saturation ABG Base Excess ABG Hemoglobin ABG Oxyhemoglobin ABG Sodium ABG Potassium ABG Chloride ABG Glucose Oxyhemoglobin Sodium Potassium Chloride Carbon Dioxide BUN Creatinine Glucose 241 H POC Glucose 205 H 272 H Lactic Acid Calcium Phosphorus Magnesium Total Bilirubin AST ALT Alkaline Phosphatase Total Protein Albumin Triglycerides Arterial Blood Glucose Arterial Blood Ionized Calcium Crossmatch 01/02/21 01/02/21 01/03/21 23:25 23:43 03:45 WBC RBC Hgb Hct MCV MCHC RDW Plt Count Lymph % (Auto) [place] % (Auto) Lymph # (Auto) Seg Neutrophils % Seg Neuts % (Manual) Lymphocytes % (Manual) Monocytes % (Manual) Seg Neutrophils # Man Lymphocytes # (Manual) Monocytes # (Manual) PT INR ABG pH POC ABG pCO2 48.3 H POC ABG pO2 134.4 H 79.7 L ABG pO2 ABG HCO3 ABG O2 Saturation ABG Base Excess ABG Hemoglobin 7.7 L 8.6 L ABG Oxyhemoglobin ABG Sodium 131.8 L 130.4 L ABG Potassium ABG Chloride 97.0 L ABG Glucose 218 H 238 H Oxyhemoglobin Sodium Potassium Chloride Carbon Dioxide BUN Creatinine Glucose POC Glucose 218 H Lactic Acid Calcium Phosphorus Magnesium Total Bilirubin AST ALT Alkaline Phosphatase Total Protein Albumin Triglycerides Arterial Blood Glucose 218 H 238 H Arterial Blood Ionized Calcium 4.1 L 4.0 L Crossmatch 01/03/21 01/03/21 01/03/21 04:37 04:37 05:39 WBC 15.2 H RBC 2.38 L Hgb 7.3 L Hct 21.6 L MCV MCHC RDW 16.6 H Plt Count Lymph % (Auto) [place] % (Auto) Lymph # (Auto) Seg Neutrophils % Seg Neuts % (Manual) Lymphocytes % (Manual) Monocytes % (Manual) Seg Neutrophils # Man Lymphocytes # (Manual) Monocytes # (Manual) PT INR ABG pH POC ABG pCO2 POC ABG pO2 ABG pO2 ABG HCO3 ABG O2 Saturation ABG Base Excess ABG Hemoglobin ABG Oxyhemoglobin ABG Sodium ABG Potassium ABG Chloride ABG Glucose Oxyhemoglobin Sodium 136 L Potassium Chloride 94.5 L Carbon Dioxide BUN 69 H Creatinine 8.0 H Glucose 219 H POC Glucose 222 H Lactic Acid Calcium 7.8 L Phosphorus 4.80 H D Magnesium Total Bilirubin AST ALT Alkaline Phosphatase Total Protein Albumin Triglycerides Arterial Blood Glucose Arterial Blood Ionized Calcium Crossmatch 01/03/21 01/03/21 01/03/21 11:29 18:49 23:37 WBC RBC Hgb Hct MCV MCHC RDW Plt Count Lymph % (Auto) [place] % (Auto) Lymph # (Auto) Seg Neutrophils % Seg Neuts % (Manual) Lymphocytes % (Manual) Monocytes % (Manual) Seg Neutrophils # Man Lymphocytes # (Manual) Monocytes # (Manual) PT INR ABG pH POC ABG pCO2 POC ABG pO2 ABG pO2 ABG HCO3 ABG O2 Saturation ABG Base Excess ABG Hemoglobin ABG Oxyhemoglobin ABG Sodium ABG Potassium ABG Chloride ABG Glucose Oxyhemoglobin Sodium Potassium Chloride Carbon Dioxide BUN Creatinine Glucose POC Glucose 232 H 129 H 140 H Lactic Acid Calcium Phosphorus Magnesium Total Bilirubin AST ALT Alkaline Phosphatase Total Protein Albumin Triglycerides Arterial Blood Glucose Arterial Blood Ionized Calcium Crossmatch 01/04/21 01/04/21 01/04/21 03:22 04:38 04:38 WBC 11.1 H RBC 2.89 L Hgb 8.9 L Hct 26.2 L MCV MCHC RDW 16.1 H Plt Count Lymph % (Auto) [place] % (Auto) Lymph # (Auto) Seg Neutrophils % Seg Neuts % (Manual) Lymphocytes % (Manual) Monocytes % (Manual) Seg Neutrophils # Man Lymphocytes # (Manual) Monocytes # (Manual) PT INR ABG pH POC ABG pCO2 POC ABG pO2 82.3 L ABG pO2 ABG HCO3 ABG O2 Saturation ABG Base Excess ABG Hemoglobin 8.9 L ABG Oxyhemoglobin ABG Sodium 130.5 L ABG Potassium ABG Chloride ABG Glucose 124 H Oxyhemoglobin Sodium Potassium Chloride 95.5 L Carbon Dioxide BUN 87 H Creatinine 9.7 H Glucose 118 H POC Glucose Lactic Acid Calcium 7.7 L Phosphorus Magnesium Total Bilirubin AST ALT Alkaline Phosphatase Total Protein Albumin Triglycerides Arterial Blood Glucose 124 H Arterial Blood Ionized Calcium 3.5 L Crossmatch 01/04/21 01/04/21 01/04/21 05:39 12:04 18:04 WBC RBC Hgb Hct MCV MCHC RDW Plt Count Lymph % (Auto) [place] % (Auto) Lymph # (Auto) Seg Neutrophils % Seg Neuts % (Manual) Lymphocytes % (Manual) Monocytes % (Manual) Seg Neutrophils # Man Lymphocytes # (Manual) Monocytes # (Manual) PT INR ABG pH POC ABG pCO2 POC ABG pO2 ABG pO2 ABG HCO3 ABG O2 Saturation ABG Base Excess ABG Hemoglobin ABG Oxyhemoglobin ABG Sodium ABG Potassium ABG Chloride ABG Glucose Oxyhemoglobin Sodium Potassium Chloride Carbon Dioxide BUN Creatinine Glucose POC Glucose 134 H 125 H 131 H Lactic Acid Calcium Phosphorus Magnesium Total Bilirubin AST ALT Alkaline Phosphatase Total Protein Albumin Triglycerides Arterial Blood Glucose Arterial Blood Ionized Calcium Crossmatch 01/04/21 01/05/21 01/05/21 23:41 03:09 04:49 WBC RBC Hgb Hct MCV MCHC RDW Plt Count Lymph % (Auto) [place] % (Auto) Lymph # (Auto) Seg Neutrophils % Seg Neuts % (Manual) Lymphocytes % (Manual) Monocytes % (Manual) Seg Neutrophils # Man Lymphocytes # (Manual) Monocytes # (Manual) PT INR ABG pH POC ABG pCO2 POC ABG pO2 62.8 L ABG pO2 ABG HCO3 ABG O2 Saturation ABG Base Excess ABG Hemoglobin 9.5 L ABG Oxyhemoglobin 92.0 L ABG Sodium 130.1 L ABG Potassium ABG Chloride ABG Glucose 148 H Oxyhemoglobin Sodium Potassium Chloride 96.9 L Carbon Dioxide BUN 57 H Creatinine 6.7 H Glucose 135 H POC Glucose 132 H Lactic Acid Calcium 8.0 L Phosphorus Magnesium Total Bilirubin AST ALT Alkaline Phosphatase Total Protein Albumin Triglycerides Arterial Blood Glucose 148 H Arterial Blood Ionized Calcium 4.1 L Crossmatch 01/05/21 01/05/21 01/05/21 05:04 11:48 12:39 WBC RBC 3.03 L Hgb 9.3 L Hct 27.6 L MCV MCHC RDW 16.5 H Plt Count Lymph % (Auto) [place] % (Auto) Lymph # (Auto) Seg Neutrophils % Seg Neuts % (Manual) Lymphocytes % (Manual) Monocytes % (Manual) Seg Neutrophils # Man Lymphocytes # (Manual) Monocytes # (Manual) PT INR ABG pH POC ABG pCO2 POC ABG pO2 ABG pO2 ABG HCO3 ABG O2 Saturation ABG Base Excess ABG Hemoglobin ABG Oxyhemoglobin ABG Sodium ABG Potassium ABG Chloride ABG Glucose Oxyhemoglobin Sodium Potassium Chloride Carbon Dioxide BUN Creatinine Glucose POC Glucose 147 H 162 H Lactic Acid Calcium Phosphorus Magnesium Total Bilirubin AST ALT Alkaline Phosphatase Total Protein Albumin Triglycerides Arterial Blood Glucose Arterial Blood Ionized Calcium Crossmatch Chest x-ray: other (none today) Allied health notes reviewed: nursing
--- NOTE | 2021-01-05 13:28 | Progress Note ---
Assessment and Plan POD#13 s/p ex lap with extensive lysis of adhesions and two small bowel resections with primary anastamosis for SBO with necrotic segment small bowel. POD#4 s/p ex lap, resection of perforated anastamosis, washout and abthera wound vac placement. POD#2 s/p ex lap with right hemicolectomy. Septic from bowel leak but clinically improved off pressors. Afebrile and stable. Obtained consent from daughter Cristopher to take pt back to OR tomorrow to hopefully perform anastamosis and close abdomen. keep NGT to suction. Pt in deep sedation due to open abdomen. Subjective Date of service: 01/05/21 Narrative: no acute events overnight Objective Vital Signs - 12hr 01/05/21 01/05/21 01/05/21 01:30 02:00 02:30 Temperature Pulse Rate 80 82 79 Pulse Rate [ From Monitor] Respiratory 25 H 22 21 Rate Blood Pressure 158/75 156/76 159/74 O2 Sat by Pulse 100 98 97 Oximetry 01/05/21 01/05/21 01/05/21 02:51 02:52 03:00 Temperature Pulse Rate 82 83 80 Pulse Rate [ From Monitor] Respiratory 20 Rate Blood Pressure 165/78 165/78 166/75 O2 Sat by Pulse Oximetry 01/05/21 01/05/21 01/05/21 03:30 04:00 04:30 Temperature 98.7 F Pulse Rate 80 85 92 H Pulse Rate [ 85 From Monitor] Respiratory 19 27 H 28 H Rate Blood Pressure 156/77 167/76 179/80 O2 Sat by Pulse 98 97 Oximetry 01/05/21 01/05/21 01/05/21 04:32 05:00 05:09 Temperature Pulse Rate 83 97 H 93 H Pulse Rate [ From Monitor] Respiratory 24 Rate Blood Pressure 165/78 189/81 189/81 O2 Sat by Pulse 98 98 Oximetry 01/05/21 01/05/21 01/05/21 05:10 05:30 06:00 Temperature Pulse Rate 93 H 88 92 H Pulse Rate [ From Monitor] Respiratory 20 26 H Rate Blood Pressure 189/81 156/69 182/74 O2 Sat by Pulse 98 Oximetry 01/05/21 01/05/21 01/05/21 06:30 07:00 07:30 Temperature Pulse Rate 95 H 74 96 H Pulse Rate [ From Monitor] Respiratory 31 H 37 H 16 Rate Blood Pressure 189/76 181/79 184/78 O2 Sat by Pulse 100 100 Oximetry 01/05/21 01/05/21 01/05/21 07:37 08:00 08:30 Temperature 98.9 F Pulse Rate 96 H 96 H Pulse Rate [ 94 H From Monitor] Respiratory 25 H 19 Rate Blood Pressure 166/71 167/76 O2 Sat by Pulse 100 98 Oximetry 01/05/21 01/05/21 01/05/21 09:00 09:25 09:30 Temperature Pulse Rate 92 H 91 H 90 Pulse Rate [ From Monitor] Respiratory 17 23 Rate Blood Pressure 170/68 151/66 151/71 O2 Sat by Pulse 98 100 100 Oximetry 01/05/21 01/05/21 01/05/21 09:39 10:00 10:30 Temperature Pulse Rate 92 H 91 H 88 Pulse Rate [ From Monitor] Respiratory 16 21 Rate Blood Pressure 158/71 153/62 144/64 O2 Sat by Pulse 100 99 Oximetry 01/05/21 01/05/21 01/05/21 10:32 11:00 11:30 Temperature Pulse Rate 90 80 82 Pulse Rate [ From Monitor] Respiratory 13 13 Rate Blood Pressure 144/64 135/63 134/59 O2 Sat by Pulse 99 98 Oximetry 01/05/21 01/05/21 01/05/21 12:00 12:11 12:28 Temperature 98.1 F Pulse Rate 85 85 Pulse Rate [ 85 From Monitor] Respiratory 18 Rate Blood Pressure 153/66 153/66 O2 Sat by Pulse 98 99 Oximetry 01/05/21 12:30 Temperature Pulse Rate 84 Pulse Rate [ From Monitor] Respiratory 13 Rate Blood Pressure 144/66 O2 Sat by Pulse 99 Oximetry - General physical appearance no distress, no pain - Respiratory normal expansion, normal respiratory effort, other (intubated on vent) - Abdomen soft, not tender, distended, other (wound vac in place with sero-sanguinous drainage, NGT with bilious drainage) - Labs 01/05/21 12:39 01/05/21 04:49 Diabetes panel 01/05/21 Range/Units 04:49 Sodium 137 (137-145) mmol/L Potassium 3.6 (3.6-5.0) mmol/L Chloride 96.9 L (98-107) mmol/L Carbon Dioxide 27 (22-30) mmol/L BUN 57 H (9-20) mg/dL Creatinine 6.7 H (0.8-1.3) mg/dL Glucose 135 H (75-100) mg/dL Calcium 8.0 L (8.4-10.2) mg/dL Calcium panel 01/05/21 Range/Units 04:49 Calcium 8.0 L (8.4-10.2) mg/dL Pituitary panel 01/05/21 Range/Units 04:49 Sodium 137 (137-145) mmol/L Potassium 3.6 (3.6-5.0) mmol/L Chloride 96.9 L (98-107) mmol/L Carbon Dioxide 27 (22-30) mmol/L BUN 57 H (9-20) mg/dL Creatinine 6.7 H (0.8-1.3) mg/dL Glucose 135 H (75-100) mg/dL Calcium 8.0 L (8.4-10.2) mg/dL Adrenal panel 01/05/21 Range/Units 04:49 Sodium 137 (137-145) mmol/L Potassium 3.6 (3.6-5.0) mmol/L Chloride 96.9 L (98-107) mmol/L Carbon Dioxide 27 (22-30) mmol/L BUN 57 H (9-20) mg/dL Creatinine 6.7 H (0.8-1.3) mg/dL Glucose 135 H (75-100) mg/dL Calcium 8.0 L (8.4-10.2) mg/dL
--- NOTE | 2021-01-05 14:36 | Progress Note ---
Assessment and Plan Assessment: - ESRD on peritoneal dialysis. He has been on peritoneal dialysis for 2 years with no history of peritonitis. - s/p ex lap with extensive lysis of adhesions and two small bowel resections with primary anastamosis for SBO with necrotic segment small bowel. - ex lap, resection of perforated anastamosis, washout and abthera wound vac placement. - s/p ex lap with right hemicolectomy. - respiratory failure on vent, now re-intubated - severe sepsis - gram positive cocci bacteremia - Septic shock - Hyperkalemia - Anemia of ESRD - Hyperglycemia - Postoperative ileus - a-fib, new onset Plan: - transitioned to HD, continue HD MWF - HD tomorrow - appreciate vascular for permacath placement LIJ on 12/27; pulm removed RIJ vascath 12/28 - continue IV empiric abx per ID - s/p ex lap, now off PD, will not be able to continue pd with adhesion and sbo s/p resection - uf as tolerated with HD - will need outpatient hd placement once stable - stopped binders and sensipar - strict i/os - keep MAP >65 - continue albumin IV - monitor electrolytes daily - appreciate multidisplinary approach to care from surgery, ID, pulm input - a-fib management per cardiology Subjective Date of service: 01/05/21 Principal diagnosis: Ac hypoxemic resp failure; Severe Sepsis; Peritonitis; Acute SBO; ESRD; CHF Interval history: Remains intubated. Abdomen open. Winces to pain. Objective - Exam Narrative Exam: General appearance: Sedated, intubated Eyes: anicteric sclerae HENT: Normocephalic, Atraumatic Neck: supple, tracheal midline, no JVD Lungs: Intubated. Mechanical breath sounds. CV: Tachycardic Abdomen: Soft Midline surgical wound with Wound VAC Extremities: no edema, no cyanosis Skin: No rash. Psych: Sedated Neuro: Sedated - Vital Signs Vital signs: Vital Signs - 12hr 01/05/21 01/05/21 01/05/21 02:51 02:52 03:00 Temperature Pulse Rate 82 83 80 Pulse Rate [ From Monitor] Respiratory 20 Rate Blood Pressure 165/78 165/78 166/75 O2 Sat by Pulse Oximetry 01/05/21 01/05/21 01/05/21 03:30 04:00 04:30 Temperature 98.7 F Pulse Rate 80 85 92 H Pulse Rate [ 85 From Monitor] Respiratory 19 27 H 28 H Rate Blood Pressure 156/77 167/76 179/80 O2 Sat by Pulse 98 97 Oximetry 01/05/21 01/05/21 01/05/21 04:32 05:00 05:09 Temperature Pulse Rate 83 97 H 93 H Pulse Rate [ From Monitor] Respiratory 24 Rate Blood Pressure 165/78 189/81 189/81 O2 Sat by Pulse 98 98 Oximetry 01/05/21 01/05/21 01/05/21 05:10 05:30 06:00 Temperature Pulse Rate 93 H 88 92 H Pulse Rate [ From Monitor] Respiratory 20 26 H Rate Blood Pressure 189/81 156/69 182/74 O2 Sat by Pulse 98 Oximetry 01/05/21 01/05/21 01/05/21 06:30 07:00 07:30 Temperature Pulse Rate 95 H 74 96 H Pulse Rate [ From Monitor] Respiratory 31 H 37 H 16 Rate Blood Pressure 189/76 181/79 184/78 O2 Sat by Pulse 100 100 Oximetry 01/05/21 01/05/21 01/05/21 07:37 08:00 08:30 Temperature 98.9 F Pulse Rate 96 H 96 H Pulse Rate [ 94 H From Monitor] Respiratory 25 H 19 Rate Blood Pressure 166/71 167/76 O2 Sat by Pulse 100 98 Oximetry 01/05/21 01/05/21 01/05/21 09:00 09:25 09:30 Temperature Pulse Rate 92 H 91 H 90 Pulse Rate [ From Monitor] Respiratory 17 23 Rate Blood Pressure 170/68 151/66 151/71 O2 Sat by Pulse 98 100 100 Oximetry 01/05/21 01/05/21 01/05/21 09:39 10:00 10:30 Temperature Pulse Rate 92 H 91 H 88 Pulse Rate [ From Monitor] Respiratory 16 21 Rate Blood Pressure 158/71 153/62 144/64 O2 Sat by Pulse 100 99 Oximetry 01/05/21 01/05/21 01/05/21 10:32 11:00 11:30 Temperature Pulse Rate 90 80 82 Pulse Rate [ From Monitor] Respiratory 13 13 Rate Blood Pressure 144/64 135/63 134/59 O2 Sat by Pulse 99 98 Oximetry 01/05/21 01/05/21 01/05/21 12:00 12:11 12:28 Temperature 98.1 F Pulse Rate 85 85 Pulse Rate [ 85 From Monitor] Respiratory 18 Rate Blood Pressure 153/66 153/66 O2 Sat by Pulse 98 99 Oximetry 01/05/21 01/05/21 12:30 14:18 Temperature Pulse Rate 84 80 Pulse Rate [ From Monitor] Respiratory 13 Rate Blood Pressure 144/66 119/81 O2 Sat by Pulse 99 Oximetry - Lab 01/05/21 12:39 01/05/21 04:49 Most recent lab results ABG pH 7.425 (7.320-7.450) 01/05/21 03:09 ABG pCO2 33.9 mm Hg 12/31/20 09:38 ABG pO2 354.0 mm Hg (80.0-90.0) H 12/31/20 09:38 ABG HCO3 22.0 mmol/L (20.0-26.0) 12/31/20 09:38 ABG O2 Saturation 93.1 (0-100) 01/05/21 03:09 Calcium 8.0 mg/dL (8.4-10.2) L 01/05/21 04:49 Phosphorus 4.80 mg/dL (2.5-4.5) H D 01/03/21 04:37 Magnesium 1.80 mg/dL (1.7-2.3) 01/03/21 04:37 Medications & Allergies - Medications Allergies/Adverse Reactions: Allergies No Known Allergies Allergy (Verified 06/09/20 15:27) Home Medications: Home Medications Medication Instructions Recorded Confirmed Last Taken Type Albuterol Mdi (or & Nicu Only) 2 puff IH QID PRN #1 inhalation 04/01/17 11/01/20 10/31/20 09:00 Rx [ProAir HFA Inhaler] Calcium Acetate 667 mg PO DAILY 04/20/20 11/01/20 10/31/20 09:00 History Centrum Men's Tablet 1 tab PO DAILY 04/20/20 11/01/20 10/31/20 09:00 History Cinacalcet 30 mg PO DAILY 04/20/20 11/01/20 10/31/20 09:00 History Dialyvite with Zinc Tablet 1 tab PO DAILY 04/20/20 11/01/20 10/31/20 09:00 History Magnesium 250 mg PO BID 04/20/20 11/01/20 10/31/20 17:00 History Triamcinolone 0.1% 1 1000units TRANSDERMA DAILY 04/20/20 11/01/20 10/31/20 09:00 History Vit B12/Folic Acid/B6/Aa No.15 1,000 mg PO DAILY 04/20/20 11/01/20 10/31/20 09:00 History amLODIPine 10 mg PO DAILY 06/09/20 11/01/20 10/31/20 09:00 History AtorvaSTATin 40 mg PO HS 11/01/20 11/01/20 10/31/20 21:00 History Benadryl 25 mg PO HS 11/01/20 11/01/20 10/31/20 21:00 History Diclofenac 1 TRANSDERMA QID 11/01/20 10/31/20 19:00 History Fluticasone Propionate 1 spray INTRANASAL DAILY 11/01/20 11/01/20 10/31/20 09:00 History Vitamin D3 2,000 units 11/01/20 10/31/20 09:00 History carvediloL 12.5 mg PO DAILY 11/01/20 11/01/20 10/31/20 09:00 History hydrALAZINE 100 mg PO TID 11/01/20 11/01/20 10/31/20 19:00 History Active Medications: Generic Name Dose Route Start Last Admin Trade Name Freq PRN Reason Stop Dose Admin Acetaminophen 650 mg 12/31/20 15:30 12/31/20 15:13 Acetaminophen 650 Mg Rect Supp AL 650 mg Q6H PRN Administration Non Cardiac Pain or Temp>100.5 Albuterol 2.5 mg 12/22/20 19:42 Albuterol 2.5 Mg/3 Ml Nebu IH Q4HRT PRN Shortness Of Breath Digoxin 0.125 mg 12/31/20 10:00 01/04/21 09:12 Digoxin 0.5 Mg/2 Ml Inj IV Not Given Q48HR THOMAS Famotidine 10 mg 12/24/20 13:00 01/05/21 09:39 Famotidine 20 Mg/2 Ml Inj IV 10 mg BID THOMAS Administration Fentanyl 50 mcg 12/24/20 11:35 01/01/21 11:28 Fentanyl 100 Mcg/2 Ml Inj IV 50 mcg Q10MIN PRN Administration ANALGESIA Haloperidol Lactate 5 mg 12/29/20 14:16 12/31/20 00:19 Haloperidol Lactate 5 Mg/1 Ml Inj IV 5 mg Q12H PRN Administration Agitation Heparin Sodium (Porcine) 5,000 unit 12/24/20 10:00 01/05/21 09:41 Heparin 5,000 Unit/1 Ml Vial SUB-Q 5,000 unit Q12HR THOMAS Administration Hydralazine HCl 10 mg 12/30/20 12:00 01/05/21 14:18 Hydralazine 20 Mg/1 Ml Inj IV Not Given Q4HR THOMAS Hydrophilic Ointment 1 applic 12/31/20 06:39 Lip Therapy Vaseline TP Q2HR PRN Dry Lips Sodium Chloride 100 mls @ 999 mls/hr 12/23/20 11:03 Nacl 0.9% IV [place] PRN Hypotension Fentanyl Citrate 2,000 mcg in 100 mls @ 4.725 mls/hr 12/31/20 08:00 01/05/21 14:17 Fentanyl Drip Premix IV 2 mcg/kg/hr TITR THOMAS 9.45 mls/hr Administration Protocol 1 MCG/KG/HR NORepinephrine/NS 8 MG-250 ML 8 mg in 250 mls @ 3.75 mls/hr 12/31/20 09:00 01/03/21 08:30 Norepinephrine/Ns 8 Mg-250 Ml (Double Conc) IV 0 mcg/min TITRATE THOMAS 0 mls/hr Titration Protocol 2 MCG/MIN Piperacillin Sod/Tazobactam Sod 2.25 gm in 50 mls @ 100 mls/hr 12/31/20 12:00 01/05/21 11:55 Zosyn/Ns 2.25 Gm/50ml IV 01/06/21 20:29 100 mls/hr Q8H THOMAS Administration Protocol Vasopressin 20 unit/ Sodium 101 mls @ 9.09 mls/hr 12/31/20 21:00 01/02/21 21:13 Chloride IV 0 units/min TITR THOMAS 0 mls/hr Titration Protocol 0.03 UNITS/MIN Phenylephrine HCl 100 mg/ 100 mls @ 3 mls/hr 12/31/20 23:45 01/01/21 18:30 Sodium Chloride IV 0 mcg/min TITR THOMAS 0 mls/hr Titration Protocol 50 MCG/MIN Sodium Chloride 500 mls @ 0 mls/hr 01/03/21 17:03 Nacl 0.9% 500 Ml IV ONCE THOMAS As Directed Amino Acids/Electrolytes/Dextrose 2,016 mls @ 84 mls/hr 01/04/21 20:00 01/04/21 20:49 Tpn Adult IV 01/05/21 19:59 84 mls/hr DAILY@1999 [facility] Administration Protocol Amino Acids/Electrolytes/Dextrose 2,016 mls @ 84 mls/hr 01/05/21 20:00 Tpn Adult IV 01/06/21 19:59 DAILY@1999 [facility] Protocol Insulin Glargine 10 units 01/03/21 10:00 01/05/21 09:40 Insulin Glargine 100 Units/Ml SUB-Q 10 units DAILY [facility] Administration Insulin Human Lispro 0 unit 01/03/21 12:00 01/05/21 11:55 Insulin Lispro 100 Unit/Ml SUB-Q 3 unit Q6HR [facility] Administration Protocol Metoprolol Tartrate 5 mg 12/30/20 12:00 01/05/21 14:18 Metoprolol Tartrate 5 Mg/5 Ml Inj IV Not Given Q4HR [facility] Multi-Ingred Cream/Lotion/Oil/Oint 1 applic 12/31/20 06:39 Mineral Oil/Petrolatum, White Ophth Oint 3.5 Gm OU Q4HR PRN Dry Eye(s) Sodium Chloride 10 ml 12/22/20 22:00 01/05/21 09:40 Sodium Chloride 0.9% 10 Ml Flush Syringe IV 10 ml BID [facility] Administration Sodium Chloride 10 ml 12/22/20 19:42 Sodium Chloride 0.9% 10 Ml Flush Syringe IV PRN PRN LINE FLUSH
--- NOTE | 2021-01-05 14:45 | Progress Note ---
Assessment and Plan Assessment and plan: This is a 60 YO Male with ESRD on PD, GERD, Crohn's Disease, Nicotine Dependence, HTN, Systolic CHF(EF 35%) who presented to the emergency department on 12/22 with complaints of abdominal pain which began shortly after eating fast food rated 10/10 which is periumbilical, constant, associated with fever, nausea and multiple sites of vomiting and self-reported inability to undergo PD. In the emergency room patient underwent a CT scan of the abdomen/pelvis which revealed evidence of partial small bowel obstruction, symptoms were consistent with bacterial peritonitis. Patient was admitted to the hospital service with sepsis, peritonitis, and small bowel obstruction with consults to general surgery, nephrology, infectious disease and [facility]. 12/23. Patient had temperature 101.2 F, tachycardia and elevated lactic acid on admission. Meet sepsis criteria. Started on IV antibiotics. ID has been co nsulted. Surgery consulted this a.m.-advised laparoscopy. He remains on NG tube connected to suction. 12/24. Patient was noted to have peritonitis yesterday and patient undergoing exploratory laparotomy. Patient remained intubated after procedure and is in ICU. Now on broad-spectrum antibiotics. ID on board. 12/25. Remains mechanically ventilated and sedated. Temp 103 Fahrenheit. Antibiotics broadened-ID added fluconazole and Flagyl. Blood cultures ordered. Plan to repeat CT abdomen tomorrow if not better. Surgery following. 12/26: Patient remains on mechanical ventilation on CMV tidal line 550, rate of 14, PEEP of 8 and 30% FiO2 and sedated on fentanyl 4 micrograms. Today we will remove his Jeffery and CCM dropped his rate controlled him on CPAP. We will trend CBC given recent drop in H/H. 12/27: Patient remains intubated on CMV tidal volume 550, rate 12, PEEP 8 on 30% FiO2 at the time my examination. Patient's TPN will be changed to PPN. Patient's fentanyl drip will be changed to IV push fentanyl and have a permacath placed today and midline. Patient was placed on a spontaneous breathing trial was switched back to CMV prior to procedure. 12/28: Patient on fentanyl but awake and follows commands. At the time of my examination he was on a CPAP trial and is scheduled to receive HD today. s/o permacath and PICC placement with vascular yesterday. His blood culture grew P revotella and addition to Streptococcus bovis. This evening Dr. Spicer attempted to extubate the patient and his heart rate went to the 180s. Stat EKG obtained and cardiology consulted. 12/29: Patient was started on amiodarone IV for A. fib RVR yesterday and today he is more rate controlled into the 70s and 80s. Patient was extubated yesterday and is currently on Ventimask. Patient will be transferred to [facility]. Patient continues to be n.p.o. with TPN and NG tube to [facility]. He is hypokalemic today which was repleted. 12/30; patient was on IV amiodarone for treatment with RVR, rate is controlled. Patient was off oxygen. patient is n.p.o. and on TPN. Surgery is following the patient. 12/31: Patient was intubated overnight for respiratory distress and this morning on examination he was on assist control tidal volume 450, rate 20, PEEP 6, 100% FiO2 and RT was getting a ABG to adjust vent settings. Patient had a acute bump in WBC and per ID recommendations we will obtain a CT abdomen/pelvis if leukocytosis persist. Patient is on TPN and sedated with Levophed. Patient is also on vasopressor support with Levophed. Per surgery his ileus is resolving however will maintain OGT to LIWS. 01/01: Patient was started on a vasopressin yesterday late evening. This morning patient is on 20 mcg of Levophed and 0.03 vasopressin and sedated on 20 mcg of propofol. Patient WBC increased today and he is hypokalemic. We will treat hyperkalemia. Patient had a CT chest and abdomen/pelvis pending. The time examination total of 450, rate 20, PEEP of 6 and 35 percent FiO2. Per RN, Dr Pollock has stated that the patient will be returning to the OR today for likely anastomosis seen on CT abdomen/pelvis. 01/02: Patient noted, WBC improving, but noted to have anemia, will transfuse additional unit of Blood and repeat H/H. continue supportive care. 01/03: Continue to wean pressors, ABX PER ID, patient to return to OR today for washout and possible closure, CONTINUE TPN 01/04: Continues to show some improvement. Today is POD#12 s/p ex lap with extensive lysis of adhesions and two small bowel resections with primary anastamosis for SBO with necrotic segment small bowel. POD#3 s/p ex lap, resection of perforated anastamosis, washout and abthera wound vac placement. POD#1 s/p ex lap with right hemicolectomy. Surgery planning to take back to the OR on Saturday with the hope to anastamos ileum to transverse colon and close abdomen. keep NGT to suction. Pt in deep sedation due to open abdomen. Per ID -Continue IV Zosyn, renally dosed for Strep bacteremia treatment till 01/06/2021 -On TPN 01/05: Patient continues on HD, anticipate return to OR tomorrow for closure and anastemosis. Continues with deep sedation due to open abdomen Severe Sepsis with shock Streptococcus bovis bacteremia/Prevotella bacteremia Gwendolyn albicans tracheal aspirate Small bowel obstruction/necrotic bowel s/p ex lap with extensive lysis of adhesions, 2 small bowel resections with primary anastomosis Acute hypoxic respiratory failure Postoperative ileus Atrial fibrillation with RVR Hyperkalemia Gewndolyn albicans in tracheal aspirate from 12/24 ESRD on PD, PermCath to be placed Transaminitis Systolic CHF(EF 35%) Crohn's disease Hypertension -[facility], surgery, infectious disease, nephrology, vascular surgery, cardiology consulted, appreciate recommendations -S/p ex lap with extensive expectations, 2 small bowel resections with primary anastomosis with surgery on 12/23 -s/p PICC and Permacath placement with vascular surgery on 12/27 -Extubated on 12/28, reintubated 12/31 for respiratory distress -Vasopressor support with Levophed and vasopressin -Transitioned to HD from PD -HD per nephro -NPO -PPN -NGT to LIS -IV antibiotics -12/29 echocardiogram shows moderate concentric LVH, small pericardial effusion, transmitral Doppler flow pattern is grade 1 abnormal relaxation pattern, left- ventricular systolic function normal, LVEF 50 to 55%, no wall motion abnormalities. -01/01 CT abdomen/pelvis shows small pericardial effusion, mild coronary artery atherosclerotic calcification, small bilateral pleural effusions with associated volume loss, no convincing evidence of bowel obstruction or inflammation, postoperative changes from interval/recent midline laparotomy with a moderate amount of free fluid throughout the abdomen, small amount of dependent free air presumably postoperative -Tobacco abuse cessation counseling -Trend CBC, BMP DVT/GI prophylaxis: PPI, heparin subcu, SCDs to bilateral lower extremities while in bed Disposition: ICU Critical care statement The high probability of a clinically significant, sudden or life threatening deterioration of the [pulmonary, cardiac, neuro, renal] system(s) required my full and direct attention, intervention and personal management. The aggregate critical care time was [35] minutes. This time is in addition to time spent performing reported procedures but includes the following: [x] Data Review and interpretation [x] Patient assessment and monitoring of vital signs [x] Documentation [x] Medication orders and management History Interval history: This is a 60-year-old male with ESRD on peritoneal dialysis, Crohn's, hypertension, systolic CHF (EF 35%) who was admitted with sepsis, peritonitis, small bowel obstruction and now has gram-positive cocci bacteremia. Patient seen and examined,remains on full ventilatory support Hospitalist Physical - Physical exam Narrative exam: General appearance: Present: no acute distress, other (Sedated on mechanical ventilation) - EENT Eyes: Present: PERRL ENT: poor dentition - Neck Neck: Absent: masses or JVD, cervical LAD - Respiratory Respiratory effort: normal Respiratory: bilateral: diminished - Cardiovascular Rhythm: irregularly irregular Heart Sounds: Present: S1 & S2. Absent: systolic murmur, diastolic murmur - Extremities Extremities: no ischemia, pulses intact, pulses symmetrical, No edema, normal temperature, normal color Peripheral Pulses: within normal limits - Abdominal General gastrointestinal: distended, abdomen dressing, rigid, absent bowel sounds, PD catheter in place - Integumentary Integumentary: Present: warm, dry - Neurologic Neurologic: other (sedated and intubated) - Allied Health Allied health notes reviewed: nursing - Constitutional Vitals: Temp Pulse Resp BP Pulse Ox 98.1 F 82 13 119/81 99 01/05/21 12:28 01/05/21 14:18 01/05/21 12:30 01/05/21 14:18 01/05/21 12:30 General appearance: Present: no acute distress, other (Sedated on mechanical ventilation) HEART Score - HEART Score Troponin: Troponin T 0.021 ng/mL (0.00-0.029) 12/22/20 14:38 Results - Labs CBC & Chem 7: 01/05/21 12:39 01/05/21 04:49 Labs: Laboratory Last Values WBC 10.3 K/mm3 (4.5-11.0) 01/05/21 12:39 RBC 3.03 M/mm3 (3.65-5.03) L 01/05/21 12:39 Hgb 9.3 gm/dl (11.8-15.2) L 01/05/21 12:39 Hct 27.6 % (35.5-45.6) L 01/05/21 12:39 MCV 91 fl (84-94) 01/05/21 12:39 MCH 31 pg (28-32) 01/05/21 12:39 MCHC 34 % (32-34) 01/05/21 12:39 RDW 16.5 % (13.2-15.2) H 01/05/21 12:39 Plt Count 201 K/mm3 (140-440) 01/05/21 12:39 Lymph % (Auto) 6.5 % (13.4-35.0) L 12/28/20 05:40 Mccracken % (Auto) 16.7 % (0.0-7.3) H 12/28/20 05:40 Eos % (Auto) 3.2 % (0.0-4.3) 12/28/20 05:40 Baso % (Auto) 1.0 % (0.0-1.8) 12/28/20 05:40 Lymph # (Auto) 0.3 K/mm3 (1.2-5.4) L 12/28/20 05:40 Mccracken # (Auto) 0.7 K/mm3 (0.0-0.8) 12/28/20 05:40 Eos # (Auto) 0.1 K/mm3 (0.0-0.4) 12/28/20 05:40 Baso # (Auto) 0.0 K/mm3 (0.0-0.1) 12/28/20 05:40 Add Manual Diff Complete 01/01/21 17:58 Total Counted 100 01/01/21 17:58 Seg Neutrophils % 71.1 % (40.0-70.0) H 12/28/20 05:40 Seg Neuts % (Manual) 84.0 % (40.0-70.0) H 01/01/21 17:58 Band Neutrophils % 1.0 % 12/29/20 05:16 Lymphocytes % (Manual) 4.0 % (13.4-35.0) L 01/01/21 17:58 Reactive Lymphs % (Man) 1.0 % 12/29/20 05:16 Monocytes % (Manual) 12.0 % (0.0-7.3) H 01/01/21 17:58 Eosinophils % (Manual) 2.0 % (0.0-4.3) 12/29/20 05:16 Metamyelocytes % 2.0 % 12/29/20 05:16 Nucleated RBC % Not Reportable 01/01/21 17:58 Seg Neutrophils # 3.1 K/mm3 (1.8-7.7) 12/28/20 05:40 Seg Neutrophils # Man 22.6 K/mm3 (1.8-7.7) H 01/01/21 17:58 Band Neutrophils # 0.0 K/mm3 01/01/21 17:58 Lymphocytes # (Manual) 1.1 K/mm3 (1.2-5.4) L 01/01/21 17:58 Abs React Lymphs (Man) 0.0 K/mm3 01/01/21 17:58 Monocytes # (Manual) 3.2 K/mm3 (0.0-0.8) H 01/01/21 17:58 Eosinophils # (Manual) 0.0 K/mm3 (0.0-0.4) 01/01/21 17:58 Basophils # (Manual) 0.0 K/mm3 (0.0-0.1) 01/01/21 17:58 Metamyelocytes # 0.0 K/mm3 01/01/21 17:58 Myelocytes # 0.0 K/mm3 01/01/21 17:58 Promyelocytes # 0.0 K/mm3 01/01/21 17:58 Blast Cells # 0.0 K/mm3 01/01/21 17:58 WBC Morphology Not Reportable 01/01/21 17:58 Hypersegmented Neuts Not Reportable 01/01/21 17:58 Hyposegmented Neuts Not Reportable 01/01/21 17:58 Hypogranular Neuts Not Reportable 01/01/21 17:58 Smudge Cells Not Reportable 01/01/21 17:58 Toxic Granulation Not Reportable 01/01/21 17:58 Toxic Vacuolation Not Reportable 01/01/21 17:58 Dohle Bodies Not Reportable 01/01/21 17:58 Pelger-Huet Anomaly Not Reportable 01/01/21 17:58 Lamar Rods Not Reportable 01/01/21 17:58 Platelet Estimate Not Reportable 01/01/21 17:58 Clumped Platelets Not Reportable 01/01/21 17:58 Plt Clumps, EDTA Not Reportable 01/01/21 17:58 Large Platelets Not Reportable 01/01/21 17:58 Giant Platelets Not Reportable 01/01/21 17:58 Platelet Satelliting Not Reportable 01/01/21 17:58 Plt Morphology Comment Not Reportable 01/01/21 17:58 RBC Morphology Normal 01/01/21 17:58 Dimorphic RBCs Not Reportable 01/01/21 17:58 Polychromasia Not Reportable 01/01/21 17:58 Hypochromasia Not Reportable 01/01/21 17:58 Poikilocytosis Not Reportable 01/01/21 17:58 Anisocytosis Not Reportable 01/01/21 17:58 Microcytosis Not Reportable 01/01/21 17:58 Macrocytosis Not Reportable 01/01/21 17:58 Spherocytes Not Reportable 01/01/21 17:58 Pappenheimer Bodies Not Reportable 01/01/21 17:58 Sickle Cells Not Reportable 01/01/21 17:58 Target Cells Not Reportable 01/01/21 17:58 Tear Drop Cells Not Reportable 01/01/21 17:58 Ovalocytes Not Reportable 01/01/21 17:58 Helmet Cells Not Reportable 01/01/21 17:58 [place] Bodies Not Reportable 01/01/21 17:58 [place] Rings Not Reportable 01/01/21 17:58 [place] Cells Not Reportable 01/01/21 17:58 Bite Cells Not Reportable 01/01/21 17:58 Crenated Cell Not Reportable 01/01/21 17:58 Elliptocytes Not Reportable 01/01/21 17:58 Acanthocytes (Spur) Not Reportable 01/01/21 17:58 Rouleaux Not Reportable 01/01/21 17:58 Hemoglobin C Crystals Not Reportable 01/01/21 17:58 Schistocytes Not Reportable 01/01/21 17:58 Malaria parasites Not Reportable 01/01/21 17:58 Lucas Bodies Not Reportable 01/01/21 17:58 Hem Pathologist Commnt No 01/01/21 17:58 PT 16.9 Sec. (12.2-14.9) H 01/01/21 12:45 INR 1.39 (0.87-1.13) H 01/01/21 12:45 APTT 25.1 Sec. (24.2-36.6) 12/22/20 14:38 ABG pH 7.425 (7.320-7.450) 01/05/21 03:09 POC ABG pCO2 43.2 mmHg (32.0-48.0) 01/05/21 03:09 ABG pCO2 33.9 mm Hg 12/31/20 09:38 POC ABG pO2 62.8 mmHg (83-108) L 01/05/21 03:09 ABG pO2 354.0 mm Hg (80.0-90.0) H 12/31/20 09:38 POC ABG HCO3 27.7 01/05/21 03:09 ABG HCO3 22.0 mmol/L (20.0-26.0) 12/31/20 09:38 ABG O2 Saturation 93.1 (0-100) 01/05/21 03:09 ABG O2 Content 13.5 (0.0-44) 12/31/20 09:38 POC ABG Base Excess 3.0 01/05/21 03:09 ABG Base Excess -1.9 mmol/L (-2.0-3.0) 12/31/20 09:38 ABG Hemoglobin 9.5 (12.0-17.5) L 01/05/21 03:09 ABG Oxyhemoglobin 92.0 (94-98) L 01/05/21 03:09 ABG Carboxyhemoglobin 1.0 % (0.0-5.0) 12/31/20 09:38 ABG Methemoglobin 0.3 (0.0-1.5) 01/05/21 03:09 ABG Sodium 130.1 mmol/L (136.0-145.0) L 01/05/21 03:09 ABG Potassium 3.6 mmol/L (3.40-4.50) 01/05/21 03:09 ABG Chloride 99.0 mmol/L (98-107) 01/05/21 03:09 ABG Glucose 148 mg/dL (65-95) H 01/05/21 03:09 Oxyhemoglobin 97.9 % (95.0-99.0) 12/31/20 09:38 Carboxyhemoglobin 0.9 (0.5-1.5) 01/05/21 03:09 FiO2 100 % 12/31/20 09:38 FiO2 % 40.0 01/05/21 03:09 Sodium 137 mmol/L (137-145) 01/05/21 04:49 Potassium 3.6 mmol/L (3.6-5.0) 01/05/21 04:49 Chloride 96.9 mmol/L (98-107) L 01/05/21 04:49 Carbon Dioxide 27 mmol/L (22-30) 01/05/21 04:49 Anion Gap 17 mmol/L 01/05/21 04:49 BUN 57 mg/dL (9-20) H 01/05/21 04:49 Creatinine 6.7 mg/dL (0.8-1.3) H 01/05/21 04:49 Estimated GFR 10 ml/min 01/05/21 04:49 BUN/Creatinine Ratio 9 % 01/05/21 04:49 Glucose 135 mg/dL (75-100) H 01/05/21 04:49 POC Glucose 162 mg/dL (70-105) H 01/05/21 11:48 Lactic Acid 1.50 mmol/L (0.7-2.0) 01/02/21 18:00 Calcium 8.0 mg/dL (8.4-10.2) L 01/05/21 04:49 Phosphorus 4.80 mg/dL (2.5-4.5) H D 01/03/21 04:37 Magnesium 1.80 mg/dL (1.7-2.3) 01/03/21 04:37 Total Bilirubin 2.10 mg/dL (0.1-1.2) H 01/01/21 17:58 AST 223 units/L (5-40) H 01/01/21 17:58 ALT 100 units/L (7-56) H 01/01/21 17:58 Alkaline Phosphatase 206 units/L (35-129) H 01/01/21 17:58 Ammonia 30.0 umol/L (25-60) 12/22/20 14:38 Troponin T 0.021 ng/mL (0.00-0.029) 12/22/20 14:38 Total Protein 4.8 g/dL (6.3-8.2) L 01/01/21 17:58 Albumin 1.9 g/dL (3.9-5) L 01/01/21 17:58 Albumin/Globulin Ratio 0.7 % 01/01/21 17:58 Triglycerides 155 mg/dL (2-149) H 12/30/20 09:00 Lipase 41 units/L (13-60) 12/22/20 14:38 Procalcitonin > 200.00 ng/mL (<0.15) 12/24/20 15:06 TSH 1.470 mlU/mL (0.270-4.200) 12/28/20 19:44 Arterial Blood Glucose 148 mg/dL (65-95) H 01/05/21 03:09 Arterial Blood Ionized Calcium 4.1 mg/dL (4.6-5.3) L 01/05/21 03:09 Urine Color Yellow (Yellow) 12/22/20 18:53 Urine Turbidity Clear (Clear) 12/22/20 18:53 Urine pH 7.0 (5.0-7.0) 12/22/20 18:53 Ur Specific [place] 1.012 (1.003-1.030) 12/22/20 18:53 Urine Protein >500 mg/dL (Negative) 12/22/20 18:53 Urine Glucose (UA) Neg mg/dL (Negative) 12/22/20 18:53 Urine Ketones Neg mg/dL (Negative) 12/22/20 18:53 Urine Blood Neg (Negative) 12/22/20 18:53 Urine Nitrite Neg (Negative) 12/22/20 18:53 Urine Bilirubin Neg (Negative) 12/22/20 18:53 Urine Urobilinogen < 2.0 mg/dL (<2.0) 12/22/20 18:53 Ur Leukocyte Esterase Neg (Negative) 12/22/20 18:53 Urine WBC (Auto) < 1.0 /HPF (0.0-6.0) 12/22/20 18:53 Urine RBC (Auto) 1.0 /HPF (0.0-6.0) 12/22/20 18:53 Fluid Type Dialysate 12/22/20 Unknown Fluid Color Colorless 12/22/20 Unknown Fluid Appearance Cloudy 12/22/20 Unknown Fluid WBC 208 /mm3 12/22/20 Unknown Fluid RBC 45 /mm3 12/22/20 Unknown Fluid Seg Neutrophils 82.0 % 12/22/20 Unknown Fluid Lymphocytes 11.0 % 12/22/20 Unknown Fluid Reactive Lymphs 0 % 12/22/20 Unknown Fluid Monocytes 7.0 % 12/22/20 Unknown Fluid Eosinophils 0 % 12/22/20 Unknown Fluid Basophils 0 % 12/22/20 Unknown Random Vancomycin 13.7 ug/mL (0-40.0) 12/26/20 Unknown Hepatitis A IgM Ab Non-reactive (NonReactive) 12/23/20 11:38 Hep Bs Antigen Non-reactive (Negative) 12/23/20 11:38 Hep B Core IgM Ab Non-reactive (NonReactive) 12/23/20 11:38 Hepatitis C Antibody Non-reactive (NonReactive) 12/23/20 11:38 Blood Type A POSITIVE 01/01/21 11:31 Antibody Screen Negative 01/01/21 11:31 Crossmatch See Detail 01/01/21 11:31 Microbiology: Microbiology 12/22/20 14:38 Peripheral/Venous Blood Culture - Final Streptococcus Bovis Prevotella Oralis Group Jeffery/IV: Voiding Method Incontinent Active Medications - Current Medications Current Medications: Generic Name Dose Route Start Last Admin Trade Name Freq PRN Reason Stop Dose Admin Acetaminophen 650 mg 12/31/20 15:30 12/31/20 15:13 Acetaminophen 650 Mg Rect Supp NC 650 mg Q6H PRN Administration Non Cardiac Pain or Temp>100.5 Albuterol 2.5 mg 12/22/20 19:42 Albuterol 2.5 Mg/3 Ml Nebu IH Q4HRT PRN Shortness Of Breath Digoxin 0.125 mg 12/31/20 10:00 01/04/21 09:12 Digoxin 0.5 Mg/2 Ml Inj IV Not Given Q48HR THOMAS Famotidine 10 mg 12/24/20 13:00 01/05/21 09:39 Famotidine 20 Mg/2 Ml Inj IV 10 mg BID THOMAS Administration Fentanyl 50 mcg 12/24/20 11:35 01/01/21 11:28 Fentanyl 100 Mcg/2 Ml Inj IV 50 mcg Q10MIN PRN Administration ANALGESIA Haloperidol Lactate 5 mg 12/29/20 14:16 12/31/20 00:19 Haloperidol Lactate 5 Mg/1 Ml Inj IV 5 mg Q12H PRN Administration Agitation Heparin Sodium (Porcine) 5,000 unit 12/24/20 10:00 01/05/21 09:41 Heparin 5,000 Unit/1 Ml Vial SUB-Q 5,000 unit Q12HR THOMAS Administration Hydralazine HCl 10 mg 12/30/20 12:00 01/05/21 14:18 Hydralazine 20 Mg/1 Ml Inj IV Not Given Q4HR THOMAS Hydrophilic Ointment 1 applic 12/31/20 06:39 Lip Therapy Vaseline TP Q2HR PRN Dry Lips Sodium Chloride 100 mls @ 999 mls/hr 12/23/20 11:03 Nacl 0.9% IV RYLAND PRN Hypotension Fentanyl Citrate 2,000 mcg in 100 mls @ 4.725 mls/hr 12/31/20 08:00 01/05/21 14:17 Fentanyl Drip Premix IV 2 mcg/kg/hr TITR THOMAS 9.45 mls/hr Administration Protocol 1 MCG/KG/HR NORepinephrine/NS 8 MG-250 ML 8 mg in 250 mls @ 3.75 mls/hr 12/31/20 09:00 01/03/21 08:30 Norepinephrine/Ns 8 Mg-250 Ml (Double Conc) IV 0 mcg/min TITRATE THOMAS 0 mls/hr Titration Protocol 2 MCG/MIN Piperacillin Sod/Tazobactam Sod 2.25 gm in 50 mls @ 100 mls/hr 12/31/20 12:00 01/05/21 11:55 Zosyn/Ns 2.25 Gm/50ml IV 01/06/21 20:29 100 mls/hr Q8H THOMAS Administration Protocol Vasopressin 20 unit/ Sodium 101 mls @ 9.09 mls/hr 12/31/20 21:00 01/02/21 21:13 Chloride IV 0 units/min TITR THOMAS 0 mls/hr Titration Protocol 0.03 UNITS/MIN Phenylephrine HCl 100 mg/ 100 mls @ 3 mls/hr 12/31/20 23:45 01/01/21 18:30 Sodium Chloride IV 0 mcg/min TITR THOMAS 0 mls/hr Titration Protocol 50 MCG/MIN Sodium Chloride 500 mls @ 0 mls/hr 01/03/21 17:03 Nacl 0.9% 500 Ml IV ONCE THOMAS As Directed Amino Acids/Electrolytes/Dextrose 2,016 mls @ 84 mls/hr 01/04/21 20:00 01/04/21 20:49 Tpn Adult IV 01/05/21 19:59 84 mls/hr DAILY@1999 THOMAS Administration Protocol Amino Acids/Electrolytes/Dextrose 2,016 mls @ 84 mls/hr 01/05/21 20:00 Tpn Adult IV 01/06/21 19:59 DAILY@1999 [facility] Protocol Insulin Glargine 10 units 01/03/21 10:00 01/05/21 09:40 Insulin Glargine 100 Units/Ml SUB-Q 10 units DAILY THOMAS Administration Insulin Human Lispro 0 unit 01/03/21 12:00 01/05/21 11:55 Insulin Lispro 100 Unit/Ml SUB-Q 3 unit Q6HR [facility] Administration Protocol Metoprolol Tartrate 5 mg 12/30/20 12:00 01/05/21 14:18 Metoprolol Tartrate 5 Mg/5 Ml Inj IV Not Given Q4HR [facility] Multi-Ingred Cream/Lotion/Oil/Oint 1 applic 12/31/20 06:39 Mineral Oil/Petrolatum, White Ophth Oint 3.5 Gm OU Q4HR PRN Dry Eye(s) Sodium Chloride 10 ml 12/22/20 22:00 01/05/21 09:40 Sodium Chloride 0.9% 10 Ml Flush Syringe IV 10 ml BID THOMAS Administration Sodium Chloride 10 ml 12/22/20 19:42 Sodium Chloride 0.9% 10 Ml Flush Syringe IV PRN PRN LINE FLUSH Nutrition/Malnutrition Assess - Dietary Evaluation Nutrition/Malnutrition Findings: Nutrition Notes Start: 12/24/20 12:36 Freq: Status: Active Protocol: Document 01/05/21 12:51 AL (Rec: 01/05/21 13:10 AL [id number]) Co-Sign 01/05/21 12:51 LP Nutrition Notes Initial or Follow up Reassessment Current Diagnosis CKD (stage V CKD),Sepsis, Hypertension,Heart Failure Other Pertinent Diagnosis bacterial peritonitis, on HD MWF/PRN, SBO, Crohns disease, Anemia Current Diet TPN at 84 ml/hr Labs/Tests BUN 57 Cr 6.7 Cl 96.9 Pertinent Medications Reviewed Height 5 ft 7 in Weight 90.8 kg [place] Body Weight (kg) 67.27 BMI 31.3 Weight Status Obese Subjective/Other Information TPN Day 11. Pt still intubated . Will not give MTE due to high bilirubin Percent of energy/protein needs met: 100%/100% Burn Absent Trauma Absent Difficulty In Swallowing Current % PO Negligible Minimum of two criteria No Energy Intake (non-severe) <75% Estimated Energy Requirement >7 days #1 Nutrition Diagnosis Inadequate oral intake Diagnosis Progress(for reassessment Continues documentation) Is patient on ventilator? Yes Is Patient Ambulatory and/or Out of Bed No REE-([place]-confined to bed) 2003.816 Kcal/Kg value to use for calculation 21 Approximate Energy Requirements Using 1907 kcal/Kg Calculation Used for Recommendations Kcal/kg Additional Notes Protein needs: >135 g (>2g/kg IBW) fluid needs: 1 mL/kcal or per MD Nutrition Intervention Change Diet Order: Continue CPN Nutrition Support: CPN at 84 ml/hr Cl/CO2 90%/10% Kcal 1,730 Protein (gm) 135 Carbohydrates (gm) 350 Fat (gm) 0 Fluid (mL) 2,016 Goal #1 Meet kcal and protein needs as best as possible via CPN Anticipated Discharge Needs: unable to determine at this time Follow-Up By: 01/06/21 Additional Comments Labs in AM: BMP, Mg, Phos
[2021-01-05] MEDS ORDERED: TOTAL PARENTERAL NUTRITION 2,016 ML IV SCH (20:00)
[2021-01-06] MEDS: fentaNYL DRIP Premix 2,000 MCG/100 ML BAG IV SCH ×4 (00:08→19:25)
[2021-01-06] MEDS: INSULIN LISPRO 100 UNIT/ML SUB-Q SCH ×3 (00:09→17:52)
[2021-01-06 05:07] LABS: ABG HCO3 25.3 mmol/L (20.0-26.0); ABG Methemoglobin 0.5 % (0.0-1.5); ABG Oxygen Saturation 99.2 % (95.0-99.0); ABG PH 7.377 pH Units (7.350-7.450)
[2021-01-06] MEDS: hydrALAZINE 20 MG/1 ML INJ IV SCH ×6 (05:09→21:04)
[2021-01-06] MEDS: METOPROLOL TARTRATE 5 MG/5 ML INJ IV SCH ×6 (05:09→21:04)
[2021-01-06] MEDS: PIPERACIL-TAZO 2.25 GM/50 ML 2.25 GM/50 ML BAG IV SCH ×3 (05:10→20:02)
[2021-01-06 05:13] LABS: Calcium 8.3 mg/dL (8.4-10.2)
[2021-01-06 08:11] LABS: Hematocrit 26.8 % (35.5-45.6); Hemoglobin 9.1 gm/dl (11.8-15.2); Mean Corpuscular HGB Conc 34 % (32-34); Mean Corpuscular Volume 91 fl (84-94); Platelet Count 215 K/mm3 (140-440); Red Blood Count 2.95 M/mm3 (3.65-5.03); Red Cell Distribution Width 16.8 % (13.2-15.2)
[2021-01-06] MEDS: HEPARIN 5,000 UNIT/1 ML VIAL SUB-Q SCH ×2 (10:00→21:04)
[2021-01-06] MEDS ORDERED: SODIUM CHLORIDE 0.9% 500 ML 500 ML IV SCH (10:00)
[2021-01-06] MEDS: FAMOTIDINE 20 MG/2 ML INJ IV SCH ×2 (10:00→21:04)
--- NOTE | 2021-01-06 11:49 | Progress Note ---
Assessment and Plan Cultures: 12/22/2020 blood culture: Streptococcus bovis, Prevotella 12/22/2020 PD fluid culture: No growth 12/24/2020 tracheal aspirate culture: Gwendolyn albicans (likely a colonizer) 12/24/2020 blood culture: No growth 12/31/2020 sputum culture: No growth A/P: 60-year-old male with ESRD on PD, Crohn's disease, CHF, gastroesophageal reflux disease was admitted to the hospital with complaints of abdominal pain and fever: #Severe sepsis with shock: Remarkable improvement, off pressors (on Levophed and vasopressin), leukocytosis improving. Secondary to small bowel obstruction/necrotic bowel with associated peritonitis. Status post exploratory laparotomy on 12/23/2020 with extensive lysis, primary anastomosis, found to have necrotic segment of small bowel. #Small bowel obstruction/necrotic bowel: with concern for PD associated peritonitis: Nephrology and general surgery following. Status post exploratory laparotomy on 12/23/2020 with extensive lysis, primary anastomosis, found to have necrotic segment of small bowel. PD catheter remains in place. S/p ex lap, resection of perforated anastamosis, washout and abthera wound vac placement on 01/01. Repeat CT abdomen shows no new abscesses, noted small free fluid. S/p Exploratory laparotomy, Right hemicolectomy, Peritoneal lavage, Partial om entectomy, ABThera wound VAC placement on 01/03/2021. #Streptococcus bovis bacteremia and Prevotella bacteremia: secondary to above. TTE without obvious vegetations. Repeat blood cultures negative. #ESRD: Renally dose antibiotics. Used to be on PD, cath remains in place. Now on HD. #Elevated LFTs: Secondary to sepsis. #Acute respiratory failure: extubated, then re-intubated 12/31/2020. #Anemia: Severe. Recs: -Continue IV Zosyn, renally dosed for Strep bacteremia treatment till 01/06/2021 -On TPN -To the OR today -Monitor off abx will follow MD [facility] ([facility]) Office [phone] Subjective Date of service: 01/06/21 Principal diagnosis: Ac hypoxemic resp failure; Severe Sepsis; Peritonitis; Acute SBO; ESRD; CHF Interval history: Remains intubated, sedated, on TPN. No fever. Objective - Exam Narrative Exam: General appearance: Sedated, intubated open eyes Eyes: anicteric sclerae, moist conjunctivae; no lid-lag; PERRLA HENT: Normocephalic, Atraumatic; normal external ears, nares open, oropharynx limited with endotracheal tube, tongue out with edema Neck: supple, tracheal midline, no JVD Lungs: Coarse breath sounds bilaterally CV: Tachycardic Abdomen: Soft tender diffusely midline surgical wound with Abthera Wound VAC Extremities: no edema, no cyanosis Skin: No rash. Psych: Sedated Neuro: Sedated - Constitutional Vitals: Vital Signs Temp Pulse Resp BP Pulse Ox 98.3 F 80 13 135/77 100 01/06/21 09:00 01/06/21 11:30 01/06/21 08:15 01/06/21 11:30 01/06/21 08:15 Temperature -Last 24 Hours Temperature 98.3 F Temperature 98.2 F Temperature 98.2 F Temperature 98.0 F Temperature 97.9 F Temperature 98.2 F Temperature 98.1 F - Labs CBC & Chem 7: 01/06/21 07:03 01/06/21 04:45 Labs: Abnormal lab results 01/05/21 01/05/21 01/05/21 Range/Units 03:23 11:48 12:39 RBC 3.03 L (3.65-5.03) M/mm3 Hgb 9.3 L (11.8-15.2) gm/dl Hct 27.6 L (35.5-45.6) % RDW 16.5 H (13.2-15.2) % POC ABG pO2 62.8 L (83-108) mmHg ABG pO2 (80.0-90.0) mm Hg ABG O2 Saturation (95.0-99.0) % ABG Hemoglobin 9.5 L (12.0-17.5) ABG Oxyhemoglobin 92.0 L (94-98) ABG Sodium 130.1 L (136.0-145.0) mmol/L ABG Glucose 148 H (65-95) mg/dL Sodium (137-145) mmol/L Chloride (98-107) mmol/L BUN (9-20) mg/dL Creatinine (0.8-1.3) mg/dL Glucose (75-100) mg/dL POC Glucose 162 H (70-105) mg/dL Calcium (8.4-10.2) mg/dL Arterial Blood Glucose 148 H (65-95) mg/dL Arterial Blood Ionized Calcium 4.1 L (4.6-5.3) mg/dL Crossmatch 01/05/21 01/05/21 01/06/21 Range/Units 17:50 23:32 04:15 RBC (3.65-5.03) M/mm3 Hgb (11.8-15.2) gm/dl Hct (35.5-45.6) % RDW (13.2-15.2) % POC ABG pO2 (83-108) mmHg ABG pO2 191.0 H (80.0-90.0) mm Hg ABG O2 Saturation 99.2 H (95.0-99.0) % ABG Hemoglobin 9.0 L (12.0-17.5) ABG Oxyhemoglobin (94-98) ABG Sodium (136.0-145.0) mmol/L ABG Glucose (65-95) mg/dL Sodium (137-145) mmol/L Chloride (98-107) mmol/L BUN (9-20) mg/dL Creatinine (0.8-1.3) mg/dL Glucose (75-100) mg/dL POC Glucose 155 H 115 H (70-105) mg/dL Calcium (8.4-10.2) mg/dL Arterial Blood Glucose (65-95) mg/dL Arterial Blood Ionized Calcium (4.6-5.3) mg/dL Crossmatch 01/06/21 01/06/21 01/06/21 Range/Units 04:45 05:56 07:03 RBC 2.95 L (3.65-5.03) M/mm3 Hgb 9.1 L (11.8-15.2) gm/dl Hct 26.8 L (35.5-45.6) % RDW 16.8 H (13.2-15.2) % POC ABG pO2 (83-108) mmHg ABG pO2 (80.0-90.0) mm Hg ABG O2 Saturation (95.0-99.0) % ABG Hemoglobin (12.0-17.5) ABG Oxyhemoglobin (94-98) ABG Sodium (136.0-145.0) mmol/L ABG Glucose (65-95) mg/dL Sodium 135 L (137-145) mmol/L Chloride 95.9 L (98-107) mmol/L BUN 82 H (9-20) mg/dL Creatinine 8.7 H (0.8-1.3) mg/dL Glucose 127 H (75-100) mg/dL POC Glucose 136 H (70-105) mg/dL Calcium 8.3 L (8.4-10.2) mg/dL Arterial Blood Glucose (65-95) mg/dL Arterial Blood Ionized Calcium (4.6-5.3) mg/dL Crossmatch 01/06/21 Range/Units 07:10 RBC (3.65-5.03) M/mm3 Hgb (11.8-15.2) gm/dl Hct (35.5-45.6) % RDW (13.2-15.2) % POC ABG pO2 (83-108) mmHg ABG pO2 (80.0-90.0) mm Hg ABG O2 Saturation (95.0-99.0) % ABG Hemoglobin (12.0-17.5) ABG Oxyhemoglobin (94-98) ABG Sodium (136.0-145.0) mmol/L ABG Glucose (65-95) mg/dL Sodium (137-145) mmol/L Chloride (98-107) mmol/L BUN (9-20) mg/dL Creatinine (0.8-1.3) mg/dL Glucose (75-100) mg/dL POC Glucose (70-105) mg/dL Calcium (8.4-10.2) mg/dL Arterial Blood Glucose (65-95) mg/dL Arterial Blood Ionized Calcium (4.6-5.3) mg/dL Crossmatch See Detail
[2021-01-06] MEDS ORDERED: fentaNYL 100 MCG/2 ML INJ ONE (12:55)
[2021-01-06] MEDS ORDERED: propofoL 200 MG/20 ML VIAL IV ONE (12:56)
[2021-01-06] MEDS ORDERED: LIDOCAINE (1%) 10 MG/1 ML VIAL 20 ML MDV ONE ×2 (13:31→14:31)
[2021-01-06] MEDS ORDERED: BUPIVACAINE/PF (0.25%) 2.5 MG/ML 30 ML VIAL INFILTRATI ONE ×3 (13:32→14:45)
--- NOTE | 2021-01-06 13:35 | Anesthesia Day of Surgery ---
Anesthesia Day of Surgery - Day of Surgery Patient Examined: Yes Patient H&P Reviewed: Yes Patient is NPO: Yes
[2021-01-06] MEDS ORDERED: SODIUM CHLORIDE 0.9% IRR 1,500 ML BOTTLE IR ONE (14:45)
[2021-01-06] MEDS ORDERED: LIDOCAINE (1%) 10 MG/1 ML VIAL 20 ML MDV INFILTRATI ONE ×2 (14:45)
[2021-01-06] MEDS: INSULIN GLARGINE 100 UNITS/ML SUB-Q SCH (14:46)
[2021-01-06] MEDS ORDERED: ROCURONIUM 50 MG/5 ML INJ IV ONE (15:30)
[2021-01-06] MEDS ORDERED: SODIUM CHLORIDE 0.9% 1000 ML 1,000 ML ONE (15:31)
--- NOTE | 2021-01-06 17:34 | Operative Report ---
Operative Report Operative Report: Date: January 06, 2021 Surgeon: Adri Sanchez MD [employer] Specialist surgeon: Radha Pollock DO Procedure:1. Exploratory laparotomy, 2. Jejunal colonic anastomosis,3. Segmental small bowel resection Anesthesia:GETA Indication: Patient is a 60-year-old male who originally presented with perforated viscus and had small bowel resection with primary anastomosis. Approximately postop day 6 after the procedure one of his anastomosis broke down. He has had 2 previous surgeries since then and prior to today that re quired resection of small bowel in his right colon, with his abdomen left open with ABThera wound VAC. He is here today for anastomosis, and closure of his abdominal cavity. Consent was obtained from his daughter. Details of procedure: Patient was brought into the OR suite and laid in supine position. Bilateral lower extremity SCDs were connected and turned on. General anesthesia was induced of his previous ET tube without complication. After the ABThera VAC was removed patient abdomen was prepped and draped in sterile fashion. His small bowel loops were . The cut end of his jejunum and transverse colon were identified and mobilized. The jejunum was noted to be edematous at its distal end, with a short friable mesentery. There was a 5 cm segment of distal jejunum that was resected due to redundancy and inability to form an anastomosis with the transverse colon without tension. Once this was complete pericolonic fat was excised from around the proximal transverse colon. A inly-ff-ycya stapled anastomosis using a green load on a laparoscopic 60 cm stapler was used between the jejunum and the transverse colon. The resulting anastomosis was approximately 3-1/2 cm in length. It was found to be patent. The common enterotomy was closed using running 2-0 Vicryl. Because of the edematous nature of the small bowel for fear that it would rip with Lembert sutures, say sutures using silk were used at the crotch of the anastomosis, and at the free ends of the common enterotomy. Omentum was then secured over the anastomosis. The abdominal cavity was irrigated with 2 L of normal saline and aspirated till clear. A 19 Setswana leg drain was placed in the right side and laid around the right paracolic gutter close to the anastomosis. His fascia was closed with #1 PDS followed by interrupted 0 Vicryl suture. A incisional wound VAC was placed over the incision. All counts were correct and patient was taken back to ICU in stable condition. EBL: About 550 cc Fluids given: 2 units PRBC plus crystalloid Complication: None immediate Specimen: Segment of small bowel, epiploic appendage
--- NOTE | 2021-01-06 17:39 | Post Anesthesia Evaluation ---
- Post Anesthesia Evaluation Patient Participated: No Airway Patent: Yes Stable Respiratory Function: Yes Nausea/Vomiting: No Temp > 96.8F: Yes Pain Manageable: Yes Adequeate Hydration: Yes Anesthesia Complications: No Patient on Ventilator: Yes
[2021-01-06] MEDS: DIGOXIN 0.5 MG/2 ML INJ IV SCH (18:31)
--- NOTE | 2021-01-06 19:27 | Progress Note ---
Assessment and Plan Assessment and plan: This is a 60 YO Male with ESRD on PD, GERD, Crohn's Disease, Nicotine Dependence, HTN, Systolic CHF(EF 35%) who presented to the emergency department on 12/22 with complaints of abdominal pain which began shortly after eating fast food rated 10/10 which is periumbilical, constant, associated with fever, nausea and multiple sites of vomiting and self-reported inability to undergo PD. In the emergency room patient underwent a CT scan of the abdomen/pelvis which revealed evidence of partial small bowel obstruction, symptoms were consistent with bacterial peritonitis. Patient was admitted to the hospital service with sepsis, peritonitis, and small bowel obstruction with consults to general surgery, nephrology, infectious disease and [facility]. 12/23. Patient had temperature 101.2 F, tachycardia and elevated lactic acid on admission. Meet sepsis criteria. Started on IV antibiotics. ID has been co nsulted. Surgery consulted this a.m.-advised laparoscopy. He remains on NG tube connected to suction. 12/24. Patient was noted to have peritonitis yesterday and patient undergoing exploratory laparotomy. Patient remained intubated after procedure and is in ICU. Now on broad-spectrum antibiotics. ID on board. 12/25. Remains mechanically ventilated and sedated. Temp 103 Fahrenheit. Antibiotics broadened-ID added fluconazole and Flagyl. Blood cultures ordered. Plan to repeat CT abdomen tomorrow if not better. Surgery following. 12/26: Patient remains on mechanical ventilation on CMV tidal line 550, rate of 14, PEEP of 8 and 30% FiO2 and sedated on fentanyl 4 micrograms. Today we will remove his Jeffery and CCM dropped his rate controlled him on CPAP. We will trend CBC given recent drop in H/H. 12/27: Patient remains intubated on CMV tidal volume 550, rate 12, PEEP 8 on 30% FiO2 at the time my examination. Patient's TPN will be changed to PPN. Patient's fentanyl drip will be changed to IV push fentanyl and have a permacath placed today and midline. Patient was placed on a spontaneous breathing trial was switched back to CMV prior to procedure. 12/28: Patient on fentanyl but awake and follows commands. At the time of my examination he was on a CPAP trial and is scheduled to receive HD today. s/o permacath and PICC placement with vascular yesterday. His blood culture grew P revotella and addition to Streptococcus bovis. This evening Dr. Spicer attempted to extubate the patient and his heart rate went to the 180s. Stat EKG obtained and cardiology consulted. 12/29: Patient was started on amiodarone IV for A. fib RVR yesterday and today he is more rate controlled into the 70s and 80s. Patient was extubated yesterday and is currently on Ventimask. Patient will be transferred to [facility]. Patient continues to be n.p.o. with TPN and NG tube to [facility]. He is hypokalemic today which was repleted. 12/30; patient was on IV amiodarone for treatment with RVR, rate is controlled. Patient was off oxygen. patient is n.p.o. and on TPN. Surgery is following the patient. 12/31: Patient was intubated overnight for respiratory distress and this morning on examination he was on assist control tidal volume 450, rate 20, PEEP 6, 100% FiO2 and RT was getting a ABG to adjust vent settings. Patient had a acute bump in WBC and per ID recommendations we will obtain a CT abdomen/pelvis if leukocytosis persist. Patient is on TPN and sedated with Levophed. Patient is also on vasopressor support with Levophed. Per surgery his ileus is resolving however will maintain OGT to LIWS. 01/01: Patient was started on a vasopressin yesterday late evening. This morning patient is on 20 mcg of Levophed and 0.03 vasopressin and sedated on 20 mcg of propofol. Patient WBC increased today and he is hypokalemic. We will treat hyperkalemia. Patient had a CT chest and abdomen/pelvis pending. The time examination total of 450, rate 20, PEEP of 6 and 35 percent FiO2. Per RN, Dr Pollock has stated that the patient will be returning to the OR today for likely anastomosis seen on CT abdomen/pelvis. 01/02: Patient noted, WBC improving, but noted to have anemia, will transfuse additional unit of Blood and repeat H/H. continue supportive care. 01/03: Continue to wean pressors, ABX PER ID, patient to return to OR today for washout and possible closure, CONTINUE TPN 01/04: Continues to show some improvement. Today is POD#12 s/p ex lap with extensive lysis of adhesions and two small bowel resections with primary anastamosis for SBO with necrotic segment small bowel. POD#3 s/p ex lap, resection of perforated anastamosis, washout and abthera wound vac placement. POD#1 s/p ex lap with right hemicolectomy. Surgery planning to take back to the OR on Saturday with the hope to anastamos ileum to transverse colon and close abdomen. keep NGT to suction. Pt in deep sedation due to open abdomen. Per ID -Continue IV Zosyn, renally dosed for Strep bacteremia treatment till 01/06/2021 -On TPN 01/05: Patient continues on HD, anticipate return to OR tomorrow for closure and anastemosis. Continues with deep sedation due to open abdomen 01/06: Continue supportive care, monitor pressures and electrolytes. He is post op Exploratory laparotomy, 2. Jejunal colonic anastomosis,3. Segmental small bowel resection and anastemosis closure today. Continue wound vac Severe Sepsis with shock Streptococcus bovis bacteremia/Prevotella bacteremia Gwendolyn albicans tracheal aspirate Small bowel obstruction/necrotic bowel s/p ex lap with extensive lysis of adhesi ons, 2 small bowel resections with primary anastomosis Acute hypoxic respiratory failure Postoperative ileus Atrial fibrillation with RVR Hyperkalemia Gwendolyn albicans in tracheal aspirate from 12/24 ESRD on PD, PermCath to be placed Transaminitis Systolic CHF(EF 35%) Crohn's disease Hypertension -[facility], surgery, infectious disease, nephrology, vascular surgery, cardiology consulted, appreciate recommendations -S/p ex lap with extensive expectations, 2 small bowel resections with primary anastomosis with surgery on 12/23 -s/p PICC and Permacath placement with vascular surgery on 12/27 -Extubated on 12/28, reintubated 12/31 for respiratory distress -Vasopressor support with Levophed and vasopressin -Transitioned to HD from PD -HD per nephro -NPO -PPN -NGT to LIS -IV antibiotics -12/29 echocardiogram shows moderate concentric LVH, small pericardial effusion, transmitral Doppler flow pattern is grade 1 abnormal relaxation pattern, left- ventricular systolic function normal, LVEF 50 to 55%, no wall motion abnormalities. -01/01 CT abdomen/pelvis shows small pericardial effusion, mild coronary artery atherosclerotic calcification, small bilateral pleural effusions with associated volume loss, no convincing evidence of bowel obstruction or inflammation, postoperative changes from interval/recent midline laparotomy with a moderate amount of free fluid throughout the abdomen, small amount of dependent free air presumably postoperative -Tobacco abuse cessation counseling -Trend CBC, BMP DVT/GI prophylaxis: PPI, heparin subcu, SCDs to bilateral lower extremities while in bed Disposition: ICU Critical care statement The high probability of a clinically significant, sudden or life threatening deterioration of the [pulmonary, cardiac, neuro, renal] system(s) required my full and direct attention, intervention and personal management. The aggregate critical care time was [35] minutes. This time is in addition to time spent performing reported procedures but includes the following: [x] Data Review and interpretation [x] Patient assessment and monitoring of vital signs [x] Documentation [x] Medication orders and management History Interval history: This is a 60-year-old male with ESRD on peritoneal dialysis, Crohn's, hypertension, systolic CHF (EF 35%) who was admitted with sepsis, peritonitis, small bowel obstruction and now has gram-positive cocci bacteremia. Patient seen and examined,remains on full ventilatory support was taken back to the OR today for anastemosis closure Hospitalist Physical - Physical exam Narrative exam: General appearance: Present: no acute distress, other (Sedated on mechanical ventilation) - EENT Eyes: Present: PERRL ENT: poor dentition - Neck Neck: Absent: masses or JVD, cervical LAD - Respiratory Respiratory effort: normal Respiratory: bilateral: diminished - Cardiovascular Rhythm: irregularly irregular Heart Sounds: Present: S1 & S2. Absent: systolic murmur, diastolic murmur - Extremities Extremities: no ischemia, pulses intact, pulses symmetrical, No edema, normal temperature, normal color Peripheral Pulses: within normal limits - Abdominal General gastrointestinal: distended, abdomen dressing, rigid, wound vac, edematous absent bowel sounds, PD catheter site with dwayne - Integumentary Integumentary: Present: warm, dry - Neurologic Neurologic: other (sedated and intubated) - Allied Health Allied health notes reviewed: nursing - Constitutional Vitals: Temp Pulse Resp BP Pulse Ox 98.2 F 79 16 175/89 95 01/06/21 12:11 01/06/21 18:42 01/06/21 18:30 01/06/21 18:42 01/06/21 18:30 General appearance: Present: no acute distress, other (Sedated on mechanical ventilation) HEART Score - HEART Score Troponin: Troponin T 0.021 ng/mL (0.00-0.029) 12/22/20 14:38 Results - Labs CBC & Chem 7: 01/06/21 07:03 01/07/21 04:50 Labs: Laboratory Last Values WBC 9.3 K/mm3 (4.5-11.0) 01/06/21 07:03 RBC 2.95 M/mm3 (3.65-5.03) L 01/06/21 07:03 Hgb 9.1 gm/dl (11.8-15.2) L 01/06/21 07:03 Hct 26.8 % (35.5-45.6) L 01/06/21 07:03 MCV 91 fl (84-94) 01/06/21 07:03 MCH 31 pg (28-32) 01/06/21 07:03 MCHC 34 % (32-34) 01/06/21 07:03 RDW 16.8 % (13.2-15.2) H 01/06/21 07:03 Plt Count 215 K/mm3 (140-440) 01/06/21 07:03 Lymph % (Auto) 6.5 % (13.4-35.0) L 12/28/20 05:40 [place] % (Auto) 16.7 % (0.0-7.3) H 12/28/20 05:40 Eos % (Auto) 3.2 % (0.0-4.3) 12/28/20 05:40 Baso % (Auto) 1.0 % (0.0-1.8) 12/28/20 05:40 Lymph # (Auto) 0.3 K/mm3 (1.2-5.4) L 12/28/20 05:40 [place] # (Auto) 0.7 K/mm3 (0.0-0.8) 12/28/20 05:40 Eos # (Auto) 0.1 K/mm3 (0.0-0.4) 12/28/20 05:40 Baso # (Auto) 0.0 K/mm3 (0.0-0.1) 12/28/20 05:40 Add Manual Diff Complete 01/01/21 17:58 Total Counted 100 01/01/21 17:58 Seg Neutrophils % 71.1 % (40.0-70.0) H 12/28/20 05:40 Seg Neuts % (Manual) 84.0 % (40.0-70.0) H 01/01/21 17:58 Band Neutrophils % 1.0 % 12/29/20 05:16 Lymphocytes % (Manual) 4.0 % (13.4-35.0) L 01/01/21 17:58 Reactive Lymphs % (Man) 1.0 % 12/29/20 05:16 Monocytes % (Manual) 12.0 % (0.0-7.3) H 01/01/21 17:58 Eosinophils % (Manual) 2.0 % (0.0-4.3) 12/29/20 05:16 Metamyelocytes % 2.0 % 12/29/20 05:16 Nucleated RBC % Not Reportable 01/01/21 17:58 Seg Neutrophils # 3.1 K/mm3 (1.8-7.7) 12/28/20 05:40 Seg Neutrophils # Man 22.6 K/mm3 (1.8-7.7) H 01/01/21 17:58 Band Neutrophils # 0.0 K/mm3 01/01/21 17:58 Lymphocytes # (Manual) 1.1 K/mm3 (1.2-5.4) L 01/01/21 17:58 Abs React Lymphs (Man) 0.0 K/mm3 01/01/21 17:58 Monocytes # (Manual) 3.2 K/mm3 (0.0-0.8) H 01/01/21 17:58 Eosinophils # (Manual) 0.0 K/mm3 (0.0-0.4) 01/01/21 17:58 Basophils # (Manual) 0.0 K/mm3 (0.0-0.1) 01/01/21 17:58 Metamyelocytes # 0.0 K/mm3 01/01/21 17:58 Myelocytes # 0.0 K/mm3 01/01/21 17:58 Promyelocytes # 0.0 K/mm3 01/01/21 17:58 Blast Cells # 0.0 K/mm3 01/01/21 17:58 WBC Morphology Not Reportable 01/01/21 17:58 Hypersegmented Neuts Not Reportable 01/01/21 17:58 Hyposegmented Neuts Not Reportable 01/01/21 17:58 Hypogranular Neuts Not Reportable 01/01/21 17:58 Smudge Cells Not Reportable 01/01/21 17:58 Toxic Granulation Not Reportable 01/01/21 17:58 Toxic Vacuolation Not Reportable 01/01/21 17:58 Dohle Bodies Not Reportable 01/01/21 17:58 Pelger-Huet Anomaly Not Reportable 01/01/21 17:58 Lamar Rods Not Reportable 01/01/21 17:58 Platelet Estimate Not Reportable 01/01/21 17:58 Clumped Platelets Not Reportable 01/01/21 17:58 Plt Clumps, EDTA Not Reportable 01/01/21 17:58 Large Platelets Not Reportable 01/01/21 17:58 Giant Platelets Not Reportable 01/01/21 17:58 Platelet Satelliting Not Reportable 01/01/21 17:58 Plt Morphology Comment Not Reportable 01/01/21 17:58 RBC Morphology Normal 01/01/21 17:58 Dimorphic RBCs Not Reportable 01/01/21 17:58 Polychromasia Not Reportable 01/01/21 17:58 Hypochromasia Not Reportable 01/01/21 17:58 Poikilocytosis Not Reportable 01/01/21 17:58 Anisocytosis Not Reportable 01/01/21 17:58 Microcytosis Not Reportable 01/01/21 17:58 Macrocytosis Not Reportable 01/01/21 17:58 Spherocytes Not Reportable 01/01/21 17:58 Pappenheimer Bodies Not Reportable 01/01/21 17:58 Sickle Cells Not Reportable 01/01/21 17:58 Target Cells Not Reportable 01/01/21 17:58 Tear Drop Cells Not Reportable 01/01/21 17:58 Ovalocytes Not Reportable 01/01/21 17:58 Helmet Cells Not Reportable 01/01/21 17:58 [place] Bodies Not Reportable 01/01/21 17:58 [place] Rings Not Reportable 01/01/21 17:58 [place] Cells Not Reportable 01/01/21 17:58 Bite Cells Not Reportable 01/01/21 17:58 Crenated Cell Not Reportable 01/01/21 17:58 Elliptocytes Not Reportable 01/01/21 17:58 Acanthocytes (Spur) Not Reportable 01/01/21 17:58 Rouleaux Not Reportable 01/01/21 17:58 Hemoglobin C Crystals Not Reportable 01/01/21 17:58 Schistocytes Not Reportable 01/01/21 17:58 Malaria parasites Not Reportable 01/01/21 17:58 Lucas Bodies Not Reportable 01/01/21 17:58 Hem Pathologist Commnt No 01/01/21 17:58 PT 16.9 Sec. (12.2-14.9) H 01/01/21 12:45 INR 1.39 (0.87-1.13) H 01/01/21 12:45 APTT 25.1 Sec. (24.2-36.6) 12/22/20 14:38 ABG pH 7.377 pH Units (7.350-7.450) 01/06/21 04:15 POC ABG pCO2 43.2 mmHg (32.0-48.0) 01/05/21 03:23 ABG pCO2 44.0 mm Hg 01/06/21 04:15 POC ABG pO2 62.8 mmHg (83-108) L 01/05/21 03:23 ABG pO2 191.0 mm Hg (80.0-90.0) H 01/06/21 04:15 POC ABG HCO3 27.7 01/05/21 03:23 ABG HCO3 25.3 mmol/L (20.0-26.0) 01/06/21 04:15 ABG O2 Saturation 99.2 % (95.0-99.0) H 01/06/21 04:15 ABG O2 Content 12.7 (0.0-44) 01/06/21 04:15 POC ABG Base Excess 3.0 01/05/21 03:23 ABG Base Excess 0.0 mmol/L (-2.0-3.0) 01/06/21 04:15 ABG Hemoglobin 9.0 gm/dl (14.0-18.0) L 01/06/21 04:15 ABG Oxyhemoglobin 92.0 (94-98) L 01/05/21 03:23 ABG Carboxyhemoglobin 1.5 % (0.0-5.0) 01/06/21 04:15 ABG Methemoglobin 0.5 % (0.0-1.5) 01/06/21 04:15 ABG Sodium 130.1 mmol/L (136.0-145.0) L 01/05/21 03:23 ABG Potassium 3.6 mmol/L (3.40-4.50) 01/05/21 03:23 ABG Chloride 99.0 mmol/L (98-107) 01/05/21 03:23 ABG Glucose 148 mg/dL (65-95) H 01/05/21 03:23 Oxyhemoglobin 97.2 % (95.0-99.0) 01/06/21 04:15 Carboxyhemoglobin 0.9 (0.5-1.5) 01/05/21 03:23 FiO2 45 % 01/06/21 04:15 FiO2 % 40.0 01/05/21 03:23 Sodium 135 mmol/L (137-145) L 01/06/21 04:45 Potassium 3.7 mmol/L (3.6-5.0) 01/06/21 04:45 Chloride 95.9 mmol/L (98-107) L 01/06/21 04:45 Carbon Dioxide 25 mmol/L (22-30) 01/06/21 04:45 Anion Gap 18 mmol/L 01/06/21 04:45 BUN 82 mg/dL (9-20) H 01/06/21 04:45 Creatinine 8.7 mg/dL (0.8-1.3) H 01/06/21 04:45 Estimated GFR 8 ml/min 01/06/21 04:45 BUN/Creatinine Ratio 9 % 01/06/21 04:45 Glucose 127 mg/dL (75-100) H 01/06/21 04:45 POC Glucose 155 mg/dL (70-105) H 01/06/21 13:38 Lactic Acid 1.50 mmol/L (0.7-2.0) 01/02/21 18:00 Calcium 8.3 mg/dL (8.4-10.2) L 01/06/21 04:45 Phosphorus 4.40 mg/dL (2.5-4.5) 01/06/21 04:45 Magnesium 2.00 mg/dL (1.7-2.3) 01/06/21 04:45 Total Bilirubin 2.10 mg/dL (0.1-1.2) H 01/01/21 17:58 AST 223 units/L (5-40) H 01/01/21 17:58 ALT 100 units/L (7-56) H 01/01/21 17:58 Alkaline Phosphatase 206 units/L (35-129) H 01/01/21 17:58 Ammonia 30.0 umol/L (25-60) 12/22/20 14:38 Troponin T 0.021 ng/mL (0.00-0.029) 12/22/20 14:38 Total Protein 4.8 g/dL (6.3-8.2) L 01/01/21 17:58 Albumin 1.9 g/dL (3.9-5) L 01/01/21 17:58 Albumin/Globulin Ratio 0.7 % 01/01/21 17:58 Triglycerides 155 mg/dL (2-149) H 12/30/20 09:00 Lipase 41 units/L (13-60) 12/22/20 14:38 Procalcitonin > 200.00 ng/mL (<0.15) 12/24/20 15:06 TSH 1.470 mlU/mL (0.270-4.200) 12/28/20 19:44 Arterial Blood Glucose 148 mg/dL (65-95) H 01/05/21 03:23 Arterial Blood Ionized Calcium 4.1 mg/dL (4.6-5.3) L 01/05/21 03:23 Urine Color Yellow (Yellow) 12/22/20 18:53 Urine Turbidity Clear (Clear) 12/22/20 18:53 Urine pH 7.0 (5.0-7.0) 12/22/20 18:53 Ur Specific [place] 1.012 (1.003-1.030) 12/22/20 18:53 Urine Protein >500 mg/dL (Negative) 12/22/20 18:53 Urine Glucose (UA) Neg mg/dL (Negative) 12/22/20 18:53 Urine Ketones Neg mg/dL (Negative) 12/22/20 18:53 Urine Blood Neg (Negative) 12/22/20 18:53 Urine Nitrite Neg (Negative) 12/22/20 18:53 Urine Bilirubin Neg (Negative) 12/22/20 18:53 Urine Urobilinogen < 2.0 mg/dL (<2.0) 12/22/20 18:53 Ur Leukocyte Esterase Neg (Negative) 12/22/20 18:53 Urine WBC (Auto) < 1.0 /HPF (0.0-6.0) 12/22/20 18:53 Urine RBC (Auto) 1.0 /HPF (0.0-6.0) 12/22/20 18:53 Fluid Type Dialysate 12/22/20 Unknown Fluid Color Colorless 12/22/20 Unknown Fluid Appearance Cloudy 12/22/20 Unknown Fluid WBC 208 /mm3 12/22/20 Unknown Fluid RBC 45 /mm3 12/22/20 Unknown Fluid Seg Neutrophils 82.0 % 12/22/20 Unknown Fluid Lymphocytes 11.0 % 12/22/20 Unknown Fluid Reactive Lymphs 0 % 12/22/20 Unknown Fluid Monocytes 7.0 % 12/22/20 Unknown Fluid Eosinophils 0 % 12/22/20 Unknown Fluid Basophils 0 % 12/22/20 Unknown Random Vancomycin 13.7 ug/mL (0-40.0) 12/26/20 Unknown Hepatitis A IgM Ab Non-reactive (NonReactive) 12/23/20 11:38 Hep Bs Antigen Non-reactive (Negative) 12/23/20 11:38 Hep B Core IgM Ab Non-reactive (NonReactive) 12/23/20 11:38 Hepatitis C Antibody Non-reactive (NonReactive) 12/23/20 11:38 Blood Type A POSITIVE 01/06/21 07:10 Antibody Screen Negative 01/06/21 07:10 Crossmatch See Detail 01/06/21 07:10 Microbiology: Microbiology 12/22/20 14:38 Peripheral/Venous Blood Culture - Final Streptococcus Bovis Prevotella Oralis Group Jeffery/IV: Voiding Method Incontinent Active Medications - Current Medications Current Medications: Generic Name Dose Route Start Last Admin Trade Name Freq PRN Reason Stop Dose Admin Acetaminophen 650 mg 12/31/20 15:30 12/31/20 15:13 Acetaminophen 650 Mg Rect Supp AR 650 mg Q6H PRN Administration Non Cardiac Pain or Temp>100.5 Digoxin 0.125 mg 12/31/20 10:00 01/06/21 18:31 Digoxin 0.5 Mg/2 Ml Inj IV 0.125 mg Q48HR THOMAS Administration Famotidine 10 mg 12/24/20 13:00 01/06/21 10:00 Famotidine 20 Mg/2 Ml Inj IV 10 mg BID THOMAS Administration Fentanyl 50 mcg 12/24/20 11:35 01/01/21 11:28 Fentanyl 100 Mcg/2 Ml Inj IV 50 mcg Q10MIN PRN Administration ANALGESIA Haloperidol Lactate 5 mg 12/29/20 14:16 12/31/20 00:19 Haloperidol Lactate 5 Mg/1 Ml Inj IV 5 mg Q12H PRN Administration Agitation Heparin Sodium (Porcine) 5,000 unit 12/24/20 10:00 01/06/21 10:00 Heparin 5,000 Unit/1 Ml Vial SUB-Q Not Given Q12HR THOMAS Hydralazine HCl 10 mg 12/30/20 12:00 01/06/21 18:32 Hydralazine 20 Mg/1 Ml Inj IV 10 mg Q4HR THOMAS Administration Hydrophilic Ointment 1 applic 12/31/20 06:39 Lip Therapy Vaseline TP Q2HR PRN Dry Lips Sodium Chloride 100 mls @ 999 mls/hr 12/23/20 11:03 Nacl 0.9% IV RYLAND PRN Hypotension Fentanyl Citrate 2,000 mcg in 100 mls @ 4.725 mls/hr 12/31/20 08:00 01/06/21 19:25 Fentanyl Drip Premix IV 2 mcg/kg/hr TITR THOMAS 9.45 mls/hr Administration Protocol 1 MCG/KG/HR NORepinephrine/NS 8 MG-250 ML 8 mg in 250 mls @ 3.75 mls/hr 12/31/20 09:00 01/03/21 08:30 Norepinephrine/Ns 8 Mg-250 Ml (Double Conc) IV 0 mcg/min TITRATE THOMAS 0 mls/hr Titration Protocol 2 MCG/MIN Piperacillin Sod/Tazobactam Sod 2.25 gm in 50 mls @ 100 mls/hr 12/31/20 12:00 01/06/21 13:00 Zosyn/Ns 2.25 Gm/50ml IV 01/06/21 20:29 100 mls/hr Q8H THOMAS Administration Protocol Vasopressin 20 unit/ Sodium 101 mls @ 9.09 mls/hr 12/31/20 21:00 01/02/21 21:13 Chloride IV 0 units/min TITR THOMAS 0 mls/hr Titration Protocol 0.03 UNITS/MIN Phenylephrine HCl 100 mg/ 100 mls @ 3 mls/hr 12/31/20 23:45 01/01/21 18:30 Sodium Chloride IV 0 mcg/min TITR THOMAS 0 mls/hr Titration Protocol 50 MCG/MIN Sodium Chloride 500 mls @ 0 mls/hr 01/03/21 17:03 Nacl 0.9% 500 Ml IV ONCE THOMAS As Directed Amino Acids/Electrolytes/Dextrose 2,016 mls @ 84 mls/hr 01/05/21 20:00 01/05/21 21:19 Tpn Adult IV 01/06/21 19:59 84 mls/hr DAILY@1999 [facility] Administration Protocol Sodium Chloride 500 mls @ 0 mls/hr 01/06/21 10:00 Nacl 0.9% 500 Ml IV 01/06/21 20:00 ONCE THOMAS As Directed Amino Acids/Electrolytes/Dextrose 2,016 mls @ 84 mls/hr 01/06/21 20:00 Tpn Adult IV 01/07/21 19:59 DAILY@1999 [facility] Protocol Fat Emulsion Intravenous 250 mls @ 21 mls/hr 01/06/21 20:00 Intralipid 20% IV 01/07/21 07:59 DAILY@1999 [facility] Insulin Glargine 10 units 01/03/21 10:00 01/06/21 14:46 Insulin Glargine 100 Units/Ml SUB-Q 10 units DAILY [facility] Administration Insulin Human Lispro 0 unit 01/03/21 12:00 01/06/21 17:52 Insulin Lispro 100 Unit/Ml SUB-Q Not Given Q6HR [facility] Protocol Metoprolol Tartrate 5 mg 12/30/20 12:00 01/06/21 18:42 Metoprolol Tartrate 5 Mg/5 Ml Inj IV 5 mg Q4HR [facility] Administration Multi-Ingred Cream/Lotion/Oil/Oint 1 applic 12/31/20 06:39 Mineral Oil/Petrolatum, White Ophth Oint 3.5 Gm OU Q4HR PRN Dry Eye(s) Sodium Chloride 10 ml 12/22/20 22:00 01/06/21 10:42 Sodium Chloride 0.9% 10 Ml Flush Syringe IV 10 ml BID THOMAS Administration Sodium Chloride 10 ml 12/22/20 19:42 Sodium Chloride 0.9% 10 Ml Flush Syringe IV PRN PRN LINE FLUSH Nutrition/Malnutrition Assess - Dietary Evaluation Nutrition/Malnutrition Findings: Nutrition Notes Start: 12/24/20 12:36 Freq: Status: Active Protocol: Document 01/06/21 11:29 AL (Rec: 01/06/21 11:32 AL [id number]) Co-Sign 01/06/21 11:29 CW Nutrition Notes Initial or Follow up Reassessment Current Diagnosis CKD (stage V CKD),Sepsis, Hypertension,Heart Failure Other Pertinent Diagnosis bacterial peritonitis, on HD MWF/PRN, SBO, Crohns disease, Anemia Current Diet TPN at 84 ml/hr Labs/Tests Na 135 BUN 82 Cr 8.7 Cl 95.9 Pertinent Medications Reviewed Height 5 ft 7 in Weight 90.8 kg [place] Body Weight (kg) 67.27 BMI 31.3 Weight Status Obese Subjective/Other Information TPN Day 12. Pt still intubated . Will give Lipids and MVI today. Percent of energy/protein needs met: 100%/100% Burn Absent Trauma Absent Difficulty In Swallowing Current % PO Negligible Minimum of two criteria No Energy Intake (non-severe) <75% Estimated Energy Requirement >7 days #1 Nutrition Diagnosis Inadequate oral intake Diagnosis Progress(for reassessment Continues documentation) Is patient on ventilator? Yes Is Patient Ambulatory and/or Out of Bed No REE-([facility]-confined to bed) 2004.816 Kcal/Kg value to use for calculation 21 Approximate Energy Requirements Using 1907 kcal/Kg Calculation Used for Recommendations Kcal/kg Additional Notes Protein needs: >135 g (>2g/kg IBW) fluid needs: 1 mL/kcal or per MD Nutrition Intervention Change Diet Order: Continue CPN Nutrition Support: CPN at 84 ml/hr Cl/CO2 100%/0% Kcal 2,230 Protein (gm) 135 Carbohydrates (gm) 350 Fat (gm) 50 Fluid (mL) 2,266 Goal #1 Meet at least 75% of estimated energy and protein needs via CPN Anticipated Discharge Needs: unable to determine at this time Follow-Up By: 01/07/21 Additional Comments Labs in AM: BMP.
[2021-01-06] MEDS ORDERED: FAT EMULSIONS 20% 250 ML IV SCH (20:00)
[2021-01-06] MEDS ORDERED: TOTAL PARENTERAL NUTRITION 2,016 ML IV SCH (20:00)
--- NOTE | 2021-01-06 22:41 | Progress Note ---
Assessment and Plan Assessment: - ESRD on peritoneal dialysis. He has been on peritoneal dialysis for 2 years with no history of peritonitis. - s/p ex lap with extensive lysis of adhesions and two small bowel resections with primary anastamosis for SBO with necrotic segment small bowel. - ex lap, resection of perforated anastamosis, washout and abthera wound vac placement. - s/p ex lap with right hemicolectomy. - respiratory failure on vent, now re-intubated - severe sepsis - gram positive cocci bacteremia - Septic shock - Hyperkalemia - Anemia of ESRD - Hyperglycemia - Postoperative ileus - a-fib, new onset Plan: - transitioned to HD, continue HD MWF, seen on HD today - appreciate vascular for permacath placement LIJ on 12/27; pulm removed RIJ vascath 12/28 - continue IV empiric abx per ID - s/p ex lap, now off PD, will not be able to continue pd with adhesion and sbo s/p resection - plans for OR today after HD - uf as tolerated with HD - will need outpatient hd placement once stable - stopped binders and sensipar - strict i/os - keep MAP >65 - continue albumin IV - monitor electrolytes daily - appreciate multidisplinary approach to care from surgery, ID, pulm input - a-fib management per cardiology Subjective Date of service: 01/06/21 Principal diagnosis: Ac hypoxemic resp failure; Severe Sepsis; Peritonitis; Acute SBO; ESRD; CHF Interval history: Seen during dialysis today. Tolerating without complications. Surgery planned for today. Objective - Exam Narrative Exam: General appearance: Sedated, intubated Eyes: anicteric sclerae HENT: Normocephalic, Atraumatic Neck: supple, tracheal midline, no JVD Lungs: Intubated. Mechanical breath sounds. CV: Tachycardic Abdomen: Soft Midline surgical wound with Wound VAC Extremities: no edema, no cyanosis Skin: No rash. Psych: Sedated Neuro: Sedated - Vital Signs Vital signs: Vital Signs - 12hr 01/06/21 01/06/21 01/06/21 10:45 11:00 11:15 Temperature Pulse Rate 80 77 80 Pulse Rate [ From Monitor] Respiratory 12 Rate Blood Pressure 143/82 136/75 141/74 O2 Sat by Pulse 100 Oximetry O2 Sat by Pulse Oximetry [ Anterior Bilateral Throughout] 01/06/21 01/06/21 01/06/21 11:30 11:40 11:45 Temperature Pulse Rate 80 82 79 Pulse Rate [ From Monitor] Respiratory 13 Rate Blood Pressure 135/77 146/82 146/82 O2 Sat by Pulse 100 100 Oximetry O2 Sat by Pulse Oximetry [ Anterior Bilateral Throughout] 01/06/21 01/06/21 01/06/21 12:00 12:11 12:30 Temperature 98.5 F 98.2 F Pulse Rate 77 77 79 Pulse Rate [ 76 From Monitor] Respiratory 14 12 13 Rate Blood Pressure 138/79 138/79 152/85 O2 Sat by Pulse 100 100 Oximetry O2 Sat by Pulse 100 Oximetry [ Anterior Bilateral Throughout] 01/06/21 01/06/21 01/06/21 13:00 13:13 13:30 Temperature Pulse Rate 77 79 79 Pulse Rate [ From Monitor] Respiratory 12 21 Rate Blood Pressure 149/81 151/80 151/80 O2 Sat by Pulse 100 100 Oximetry O2 Sat by Pulse Oximetry [ Anterior Bilateral Throughout] 01/06/21 01/06/21 01/06/21 16:00 17:15 17:17 Temperature Pulse Rate 87 85 85 Pulse Rate [ 86 From Monitor] Respiratory 20 20 20 Rate Blood Pressure 123/82 138/90 O2 Sat by Pulse 100 100 100 Oximetry O2 Sat by Pulse Oximetry [ Anterior Bilateral Throughout] 01/06/21 01/06/21 01/06/21 17:20 17:23 17:25 Temperature 96.6 F L Pulse Rate 87 83 97 H Pulse Rate [ From Monitor] Respiratory 20 12 15 Rate Blood Pressure 171/99 151/80 186/103 O2 Sat by Pulse 99 100 99 Oximetry O2 Sat by Pulse Oximetry [ Anterior Bilateral Throughout] 01/06/21 01/06/21 01/06/21 17:26 17:30 17:35 Temperature Pulse Rate 97 H 98 H 97 H Pulse Rate [ From Monitor] Respiratory 15 14 Rate Blood Pressure 186/103 182/103 178/104 O2 Sat by Pulse 99 99 Oximetry O2 Sat by Pulse Oximetry [ Anterior Bilateral Throughout] 01/06/21 01/06/21 01/06/21 17:50 18:00 18:30 Temperature 97.7 F Pulse Rate 98 H 92 H 85 Pulse Rate [ From Monitor] Respiratory 13 16 16 Rate Blood Pressure 171/104 171/90 175/89 O2 Sat by Pulse 99 99 95 Oximetry O2 Sat by Pulse Oximetry [ Anterior Bilateral Throughout] 01/06/21 01/06/21 01/06/21 18:31 18:32 18:42 Temperature Pulse Rate 84 85 79 Pulse Rate [ From Monitor] Respiratory Rate Blood Pressure 175/89 175/89 175/89 O2 Sat by Pulse Oximetry O2 Sat by Pulse Oximetry [ Anterior Bilateral Throughout] 01/06/21 01/06/21 01/06/21 19:00 19:30 20:00 Temperature Pulse Rate 79 81 81 Pulse Rate [ 81 From Monitor] Respiratory 20 20 20 Rate Blood Pressure 154/71 159/76 154/74 O2 Sat by Pulse 95 95 96 Oximetry O2 Sat by Pulse Oximetry [ Anterior Bilateral Throughout] 01/06/21 01/06/21 01/06/21 20:30 21:00 21:18 Temperature Pulse Rate 83 74 75 Pulse Rate [ From Monitor] Respiratory 21 18 Rate Blood Pressure 143/70 134/60 132/61 O2 Sat by Pulse 96 97 97 Oximetry O2 Sat by Pulse Oximetry [ Anterior Bilateral Throughout] - Lab 01/06/21 07:03 01/06/21 04:45 Most recent lab results ABG pH 7.377 pH Units (7.350-7.450) 01/06/21 04:15 ABG pCO2 44.0 mm Hg 01/06/21 04:15 ABG pO2 191.0 mm Hg (80.0-90.0) H 01/06/21 04:15 ABG HCO3 25.3 mmol/L (20.0-26.0) 01/06/21 04:15 ABG O2 Saturation 99.2 % (95.0-99.0) H 01/06/21 04:15 Calcium 8.3 mg/dL (8.4-10.2) L 01/06/21 04:45 Phosphorus 4.40 mg/dL (2.5-4.5) 01/06/21 04:45 Magnesium 2.00 mg/dL (1.7-2.3) 01/06/21 04:45 Medications & Allergies - Medications Allergies/Adverse Reactions: Allergies No Known Allergies Allergy (Verified 06/09/20 15:27) Home Medications: Home Medications Medication Instructions Recorded Confirmed Last Taken Type Albuterol Mdi (or & Nicu Only) 2 puff IH QID PRN #1 inhalation 04/01/17 11/01/20 10/31/20 09:00 Rx [ProAir HFA Inhaler] Calcium Acetate 667 mg PO DAILY 04/20/20 11/01/20 10/31/20 09:00 History Centrum Men's Tablet 1 tab PO DAILY 04/20/20 11/01/20 10/31/20 09:00 History Cinacalcet 30 mg PO DAILY 04/20/20 11/01/20 10/31/20 09:00 History Dialyvite with Zinc Tablet 1 tab PO DAILY 04/20/20 11/01/20 10/31/20 09:00 History Magnesium 250 mg PO BID 04/20/20 11/01/20 10/31/20 17:00 History Triamcinolone 0.1% 1 1000units TRANSDERMA DAILY 04/20/20 11/01/20 10/31/20 09:00 History Vit B12/Folic Acid/B6/Aa No.15 1,000 mg PO DAILY 04/20/20 11/01/20 10/31/20 09:00 History amLODIPine 10 mg PO DAILY 06/09/20 11/01/20 10/31/20 09:00 History AtorvaSTATin 40 mg PO HS 11/01/20 11/01/20 10/31/20 21:00 History Benadryl 25 mg PO HS 11/01/20 11/01/20 10/31/20 21:00 History Diclofenac 1 TRANSDERMA QID 11/01/20 10/31/20 19:00 History Fluticasone Propionate 1 spray INTRANASAL DAILY 11/01/20 11/01/20 10/31/20 09:00 History Vitamin D3 2,000 units 11/01/20 10/31/20 09:00 History carvediloL 12.5 mg PO DAILY 11/01/20 11/01/20 10/31/20 09:00 History hydrALAZINE 100 mg PO TID 11/01/20 11/01/20 10/31/20 19:00 History Active Medications: Generic Name Dose Route Start Last Admin Trade Name Freq PRN Reason Stop Dose Admin Acetaminophen 650 mg 12/31/20 15:30 12/31/20 15:13 Acetaminophen 650 Mg Rect Supp [place] 650 mg Q6H PRN Administration Non Cardiac Pain or Temp>100.5 Digoxin 0.125 mg 12/31/20 10:00 01/06/21 18:31 Digoxin 0.5 Mg/2 Ml Inj IV 0.125 mg Q48HR THOMAS Administration Famotidine 10 mg 12/24/20 13:00 01/06/21 21:04 Famotidine 20 Mg/2 Ml Inj IV 10 mg BID THOMAS Administration Fentanyl 50 mcg 12/24/20 11:35 01/01/21 11:28 Fentanyl 100 Mcg/2 Ml Inj IV 50 mcg Q10MIN PRN Administration ANALGESIA Haloperidol Lactate 5 mg 12/29/20 14:16 12/31/20 00:19 Haloperidol Lactate 5 Mg/1 Ml Inj IV 5 mg Q12H PRN Administration Agitation Heparin Sodium (Porcine) 5,000 unit 12/24/20 10:00 01/06/21 21:04 Heparin 5,000 Unit/1 Ml Vial SUB-Q 5,000 unit Q12HR THOMAS Administration Hydralazine HCl 10 mg 12/30/20 12:00 01/06/21 21:04 Hydralazine 20 Mg/1 Ml Inj IV 10 mg Q4HR THOMAS Administration Hydrophilic Ointment 1 applic 12/31/20 06:39 Lip Therapy Vaseline TP Q2HR PRN Dry Lips Sodium Chloride 100 mls @ 999 mls/hr 12/23/20 11:03 Nacl 0.9% IV [place] PRN Hypotension Fentanyl Citrate 2,000 mcg in 100 mls @ 4.725 mls/hr 12/31/20 08:00 01/06/21 19:25 Fentanyl Drip Premix IV 2 mcg/kg/hr TITR THOMAS 9.45 mls/hr Administration Protocol 1 MCG/KG/HR NORepinephrine/NS 8 MG-250 ML 8 mg in 250 mls @ 3.75 mls/hr 12/31/20 09:00 01/03/21 08:30 Norepinephrine/Ns 8 Mg-250 Ml (Double Conc) IV 0 mcg/min TITRATE THOMAS 0 mls/hr Titration Protocol 2 MCG/MIN Vasopressin 20 unit/ Sodium 101 mls @ 9.09 mls/hr 12/31/20 21:00 01/02/21 21:13 Chloride IV 0 units/min TITR THOMAS 0 mls/hr Titration Protocol 0.03 UNITS/MIN Phenylephrine HCl 100 mg/ 100 mls @ 3 mls/hr 12/31/20 23:45 01/01/21 18:30 Sodium Chloride IV 0 mcg/min TITR THOMAS 0 mls/hr Titration Protocol 50 MCG/MIN Sodium Chloride 500 mls @ 0 mls/hr 01/03/21 17:03 Nacl 0.9% 500 Ml IV ONCE THOMAS As Directed Amino Acids/Electrolytes/Dextrose 2,016 mls @ 84 mls/hr 01/06/21 20:00 01/06/21 20:04 Tpn Adult IV 01/07/21 19:59 84 mls/hr DAILY@[facility] Administration Protocol Fat Emulsion Intravenous 250 mls @ 21 mls/hr 01/06/21 20:00 01/06/21 20:02 Intralipid 20% IV 01/07/21 07:59 21 mls/hr DAILY@1999 [facility] Administration Insulin Glargine 10 units 01/03/21 10:00 01/06/21 14:46 Insulin Glargine 100 Units/Ml SUB-Q [address] [facility] Administration Insulin Human Lispro 0 unit 01/03/21 12:00 01/06/21 17:52 Insulin Lispro 100 Unit/Ml SUB-Q Not Given Q6HR [facility] Protocol Metoprolol Tartrate 5 mg 12/30/20 12:00 01/06/21 21:04 Metoprolol Tartrate 5 Mg/5 Ml Inj IV [address] [facility] Administration Multi-Ingred Cream/Lotion/Oil/Oint 1 applic 12/31/20 06:39 Mineral Oil/Petrolatum, White Ophth Oint 3.5 Gm OU Q4HR PRN Dry Eye(s) Sodium Chloride 10 ml 12/22/20 22:00 01/06/21 21:04 Sodium Chloride 0.9% 10 Ml Flush Syringe IV 10 ml BID THOMAS Administration Sodium Chloride 10 ml 12/22/20 19:42 Sodium Chloride 0.9% 10 Ml Flush Syringe IV PRN PRN LINE FLUSH
[2021-01-07] MEDS: INSULIN LISPRO 100 UNIT/ML SUB-Q SCH ×4 (00:55→17:20)
[2021-01-07] MEDS: hydrALAZINE 20 MG/1 ML INJ IV SCH ×6 (02:18→21:04)
[2021-01-07] MEDS: METOPROLOL TARTRATE 5 MG/5 ML INJ IV SCH ×6 (02:18→21:04)
[2021-01-07 05:29] LABS: Calcium 8.3 mg/dL (8.4-10.2)
--- NOTE | 2021-01-07 07:24 | Progress Note ---
Assessment and Plan Assessment and plan: This is a 60 YO Male with ESRD on PD, GERD, Crohn's Disease, Nicotine Dependence, HTN, Systolic CHF(EF 35%) who presented to the emergency department on 12/22 with complaints of abdominal pain which began shortly after eating fast food rated 10/10 which is periumbilical, constant, associated with fever, nausea and multiple sites of vomiting and self-reported inability to undergo PD. In the emergency room patient underwent a CT scan of the abdomen/pelvis which revealed evidence of partial small bowel obstruction, symptoms were consistent with bacterial peritonitis. Patient was admitted to the hospital service with sepsis, peritonitis, and small bowel obstruction with consults to general surgery, nephrology, infectious disease and [facility]. 12/23. Patient had temperature 101.2 F, tachycardia and elevated lactic acid on admission. Meet sepsis criteria. Started on IV antibiotics. ID has been co nsulted. Surgery consulted this a.m.-advised laparoscopy. He remains on NG tube connected to suction. 12/24. Patient was noted to have peritonitis yesterday and patient undergoing exploratory laparotomy. Patient remained intubated after procedure and is in ICU. Now on broad-spectrum antibiotics. ID on board. 12/25. Remains mechanically ventilated and sedated. Temp 103 Fahrenheit. Antibiotics broadened-ID added fluconazole and Flagyl. Blood cultures ordered. Plan to repeat CT abdomen tomorrow if not better. Surgery following. 12/26: Patient remains on mechanical ventilation on CMV tidal line 550, rate of 14, PEEP of 8 and 30% FiO2 and sedated on fentanyl 4 micrograms. Today we will remove his Jeffery and CCM dropped his rate controlled him on CPAP. We will trend CBC given recent drop in H/H. 12/27: Patient remains intubated on CMV tidal volume 550, rate 12, PEEP 8 on 30% FiO2 at the time my examination. Patient's TPN will be changed to PPN. Patient's fentanyl drip will be changed to IV push fentanyl and have a permacath placed today and midline. Patient was placed on a spontaneous breathing trial was switched back to CMV prior to procedure. 12/28: Patient on fentanyl but awake and follows commands. At the time of my examination he was on a CPAP trial and is scheduled to receive HD today. s/o permacath and PICC placement with vascular yesterday. His blood culture grew P revotella and addition to Streptococcus bovis. This evening Dr. Spicer attempted to extubate the patient and his heart rate went to the 180s. Stat EKG obtained and cardiology consulted. 12/29: Patient was started on amiodarone IV for A. fib RVR yesterday and today he is more rate controlled into the 70s and 80s. Patient was extubated yesterday and is currently on Ventimask. Patient will be transferred to [facility]. Patient continues to be n.p.o. with TPN and NG tube to [facility]. He is hypokalemic today which was repleted. 12/30; patient was on IV amiodarone for treatment with RVR, rate is controlled. Patient was off oxygen. patient is n.p.o. and on TPN. Surgery is following the patient. 12/31: Patient was intubated overnight for respiratory distress and this morning on examination he was on assist control tidal volume 450, rate 20, PEEP 6, 100% FiO2 and RT was getting a ABG to adjust vent settings. Patient had a acute bump in WBC and per ID recommendations we will obtain a CT abdomen/pelvis if leukocytosis persist. Patient is on TPN and sedated with Levophed. Patient is also on vasopressor support with Levophed. Per surgery his ileus is resolving however will maintain OGT to LIWS. 01/01: Patient was started on a vasopressin yesterday late evening. This morning patient is on 20 mcg of Levophed and 0.03 vasopressin and sedated on 20 mcg of propofol. Patient WBC increased today and he is hypokalemic. We will treat hyperkalemia. Patient had a CT chest and abdomen/pelvis pending. The time examination total of 450, rate 20, PEEP of 6 and 35 percent FiO2. Per RN, Dr Pollock has stated that the patient will be returning to the OR today for likely anastomosis seen on CT abdomen/pelvis. 01/02: Patient noted, WBC improving, but noted to have anemia, will transfuse additional unit of Blood and repeat H/H. continue supportive care. 01/03: Continue to wean pressors, ABX PER ID, patient to return to OR today for washout and possible closure, CONTINUE TPN 01/04: Continues to show some improvement. Today is POD#12 s/p ex lap with extensive lysis of adhesions and two small bowel resections with primary anastamosis for SBO with necrotic segment small bowel. POD#3 s/p ex lap, resection of perforated anastamosis, washout and abthera wound vac placement. POD#1 s/p ex lap with right hemicolectomy. Surgery planning to take back to the OR on Saturday with the hope to anastamos ileum to transverse colon and close abdomen. keep NGT to suction. Pt in deep sedation due to open abdomen. Per ID -Continue IV Zosyn, renally dosed for Strep bacteremia treatment till 01/06/2021 -On TPN 01/05: Patient continues on HD, anticipate return to OR tomorrow for closure and anastemosis. Continues with deep sedation due to open abdomen 01/06: Continue supportive care, monitor pressures and electrolytes. He is post op Exploratory laparotomy, 2. Jejunal colonic anastomosis,3. Segmental small bowel resection and anastemosis closure today. Continue wound vac 01/07: Continue supportive care, Today is POD#15 s/p ex lap with extensive lysis of adhesions and two small bowel resections with primary anastamosis for SBO with necrotic segment small bowel. POD#6 s/p ex lap, resection of perforated anastamosis, washout and abthera wound vac placement. POD#4s/p ex lap with right hemicolectomy.POD #1 exploratory laparotomy, 2. Jejunal colonic anastomosis,3. Segmental small bowel resection. Continue to monitor and correct electrolytes. Patient remains on fentanyl and TPN with lipids. Still hypoactive bowel sounds. Severe Sepsis with shock Streptococcus bovis bacteremia/Prevotella bacteremia Gwendolyn albicans tracheal aspirate Small bowel obstruction/necrotic bowel s/p ex lap with extensive lysis of adhesions, 2 small bowel resections with primary anastomosis Acute hypoxic respiratory failure Postoperative ileus Atrial fibrillation with RVR Hyperkalemia Gwendolyn albicans in tracheal aspirate from 12/24 ESRD on PD, PermCath to be placed Transaminitis Systolic CHF(EF 35%) Crohn's disease Hypertension -CCM, surgery, infectious disease, nephrology, vascular surgery, cardiology consulted, appreciate recommendations -S/p ex lap with extensive expectations, 2 small bowel resections with primary anastomosis with surgery on 12/23 -s/p PICC and Permacath placement with vascular surgery on 12/27 -Extubated on 12/28, reintubated 12/31 for respiratory distress -Vasopressor support with Levophed and vasopressin -Transitioned to HD from PD -HD per nephro -NPO -PPN -NGT to LIS -IV antibiotics -12/29 echocardiogram shows moderate concentric LVH, small pericardial effusion, transmitral Doppler flow pattern is grade 1 abnormal relaxation pattern, left-v entricular systolic function normal, LVEF 50 to 55%, no wall motion abnormalities. -01/01 CT abdomen/pelvis shows small pericardial effusion, mild coronary artery atherosclerotic calcification, small bilateral pleural effusions with associated volume loss, no convincing evidence of bowel obstruction or inflammation, postoperative changes from interval/recent midline laparotomy with a moderate amount of free fluid throughout the abdomen, small amount of dependent free air presumably postoperative -Tobacco abuse cessation counseling -Trend CBC, BMP DVT/GI prophylaxis: PPI, heparin subcu, SCDs to bilateral lower extremities while in bed Disposition: ICU Critical care statement The high probability of a clinically significant, sudden or life threatening deterioration of the [pulmonary, cardiac, neuro, renal] system(s) required my full and direct attention, intervention and personal management. The aggregate critical care time was [35] minutes. This time is in addition to time spent performing reported procedures but includes the following: [x] Data Review and interpretation [x] Patient assessment and monitoring of vital signs [x] Documentation [x] Medication orders and management History Interval history: This is a 60-year-old male with ESRD on peritoneal dialysis, Crohn's, hypertension, systolic CHF (EF 35%) who was admitted with sepsis, peritonitis, small bowel obstruction and now has gram-positive cocci bacteremia. Patient seen and examined,remains on full ventilatory support , no acute issues reported overnight Hospitalist Physical - Physical exam Narrative exam: General appearance: Present: no acute distress, other (Sedated on mechanical ventilation) - EENT Eyes: Present: PERRL ENT: poor dentition - Neck Neck: Absent: masses or JVD, cervical LAD - Respiratory Respiratory effort: normal Respiratory: bilateral: diminished - Cardiovascular Rhythm: irregularly irregular Heart Sounds: Present: S1 & S2. Absent: systolic murmur, diastolic murmur - Extremities Extremities: no ischemia, pulses intact, pulses symmetrical, No edema, normal temperature, normal color Peripheral Pulses: within normal limits - Abdominal General gastrointestinal: distended, abdomen dressing, rigid, wound vac, small incision wound noted on the abdomen following recent surgery edematous absent bowel sounds, PD catheter site with dwayne - Integumentary Integumentary: Present: warm, dry - Neurologic Neurologic: other (sedated and intubated) - Allied Health Allied health notes reviewed: nursing - Constitutional Vitals: Temp Pulse Resp BP Pulse Ox 97.7 F 103 H 22 135/80 100 01/06/21 17:50 01/07/21 06:00 01/07/21 06:00 01/07/21 06:00 01/07/21 06:00 General appearance: Present: no acute distress, other (Sedated on mechanical ventilation) HEART Score - HEART Score Troponin: Troponin T 0.021 ng/mL (0.00-0.029) 12/22/20 14:38 Results - Labs CBC & Chem 7: 01/06/21 07:03 01/07/21 04:50 Labs: Laboratory Last Values WBC 9.3 K/mm3 (4.5-11.0) 01/06/21 07:03 RBC 2.95 M/mm3 (3.65-5.03) L 01/06/21 07:03 Hgb 9.1 gm/dl (11.8-15.2) L 01/06/21 07:03 Hct 26.8 % (35.5-45.6) L 01/06/21 07:03 MCV 91 fl (84-94) 01/06/21 07:03 MCH 31 pg (28-32) 01/06/21 07:03 MCHC 34 % (32-34) 01/06/21 07:03 RDW 16.8 % (13.2-15.2) H 01/06/21 07:03 Plt Count 215 K/mm3 (140-440) 01/06/21 07:03 Lymph % (Auto) 6.5 % (13.4-35.0) L 12/28/20 05:40 Loving % (Auto) 16.7 % (0.0-7.3) H 12/28/20 05:40 Eos % (Auto) 3.2 % (0.0-4.3) 12/28/20 05:40 Baso % (Auto) 1.0 % (0.0-1.8) 12/28/20 05:40 Lymph # (Auto) 0.3 K/mm3 (1.2-5.4) L 12/28/20 05:40 Loving # (Auto) 0.7 K/mm3 (0.0-0.8) 12/28/20 05:40 Eos # (Auto) 0.1 K/mm3 (0.0-0.4) 12/28/20 05:40 Baso # (Auto) 0.0 K/mm3 (0.0-0.1) 12/28/20 05:40 Add Manual Diff Complete 01/01/21 17:58 Total Counted 100 01/01/21 17:58 Seg Neutrophils % 71.1 % (40.0-70.0) H 12/28/20 05:40 Seg Neuts % (Manual) 84.0 % (40.0-70.0) H 01/01/21 17:58 Band Neutrophils % 1.0 % 12/29/20 05:16 Lymphocytes % (Manual) 4.0 % (13.4-35.0) L 01/01/21 17:58 Reactive Lymphs % (Man) 1.0 % 12/29/20 05:16 Monocytes % (Manual) 12.0 % (0.0-7.3) H 01/01/21 17:58 Eosinophils % (Manual) 2.0 % (0.0-4.3) 12/29/20 05:16 Metamyelocytes % 2.0 % 12/29/20 05:16 Nucleated RBC % Not Reportable 01/01/21 17:58 Seg Neutrophils # 3.1 K/mm3 (1.8-7.7) 12/28/20 05:40 Seg Neutrophils # Man 22.6 K/mm3 (1.8-7.7) H 01/01/21 17:58 Band Neutrophils # 0.0 K/mm3 01/01/21 17:58 Lymphocytes # (Manual) 1.1 K/mm3 (1.2-5.4) L 01/01/21 17:58 Abs React Lymphs (Man) 0.0 K/mm3 01/01/21 17:58 Monocytes # (Manual) 3.2 K/mm3 (0.0-0.8) H 01/01/21 17:58 Eosinophils # (Manual) 0.0 K/mm3 (0.0-0.4) 01/01/21 17:58 Basophils # (Manual) 0.0 K/mm3 (0.0-0.1) 01/01/21 17:58 Metamyelocytes # 0.0 K/mm3 01/01/21 17:58 Myelocytes # 0.0 K/mm3 01/01/21 17:58 Promyelocytes # 0.0 K/mm3 01/01/21 17:58 Blast Cells # 0.0 K/mm3 01/01/21 17:58 WBC Morphology Not Reportable 01/01/21 17:58 Hypersegmented Neuts Not Reportable 01/01/21 17:58 Hyposegmented Neuts Not Reportable 01/01/21 17:58 Hypogranular Neuts Not Reportable 01/01/21 17:58 Smudge Cells Not Reportable 01/01/21 17:58 Toxic Granulation Not Reportable 01/01/21 17:58 Toxic Vacuolation Not Reportable 01/01/21 17:58 Dohle Bodies Not Reportable 01/01/21 17:58 Pelger-Huet Anomaly Not Reportable 01/01/21 17:58 Lamar Rods Not Reportable 01/01/21 17:58 Platelet Estimate Not Reportable 01/01/21 17:58 Clumped Platelets Not Reportable 01/01/21 17:58 Plt Clumps, EDTA Not Reportable 01/01/21 17:58 Large Platelets Not Reportable 01/01/21 17:58 Giant Platelets Not Reportable 01/01/21 17:58 Platelet Satelliting Not Reportable 01/01/21 17:58 Plt Morphology Comment Not Reportable 01/01/21 17:58 RBC Morphology Normal 01/01/21 17:58 Dimorphic RBCs Not Reportable 01/01/21 17:58 Polychromasia Not Reportable 01/01/21 17:58 Hypochromasia Not Reportable 01/01/21 17:58 Poikilocytosis Not Reportable 01/01/21 17:58 Anisocytosis Not Reportable 01/01/21 17:58 Microcytosis Not Reportable 01/01/21 17:58 Macrocytosis Not Reportable 01/01/21 17:58 Spherocytes Not Reportable 01/01/21 17:58 Pappenheimer Bodies Not Reportable 01/01/21 17:58 Sickle Cells Not Reportable 01/01/21 17:58 Target Cells Not Reportable 01/01/21 17:58 Tear Drop Cells Not Reportable 01/01/21 17:58 Ovalocytes Not Reportable 01/01/21 17:58 Helmet Cells Not Reportable 01/01/21 17:58 Washburn-Loyall Bodies Not Reportable 01/01/21 17:58 [place] Rings Not Reportable 01/01/21 17:58 Jenny Cells Not Reportable 01/01/21 17:58 Bite Cells Not Reportable 01/01/21 17:58 Crenated Cell Not Reportable 01/01/21 17:58 Elliptocytes Not Reportable 01/01/21 17:58 Acanthocytes (Spur) Not Reportable 01/01/21 17:58 Rouleaux Not Reportable 01/01/21 17:58 Hemoglobin C Crystals Not Reportable 01/01/21 17:58 Schistocytes Not Reportable 01/01/21 17:58 Malaria parasites Not Reportable 01/01/21 17:58 Lucas Bodies Not Reportable 01/01/21 17:58 Hem Pathologist Commnt No 01/01/21 17:58 PT 16.9 Sec. (12.2-14.9) H 01/01/21 12:45 INR 1.39 (0.87-1.13) H 01/01/21 12:45 APTT 25.1 Sec. (24.2-36.6) 12/22/20 14:38 ABG pH 7.356 (7.320-7.450) 01/07/21 03:07 POC ABG pCO2 41.4 mmHg (32.0-48.0) 01/07/21 03:07 ABG pCO2 44.0 mm Hg 01/06/21 04:15 POC ABG pO2 94.5 mmHg (83-108) 01/07/21 03:07 ABG pO2 191.0 mm Hg (80.0-90.0) H 01/06/21 04:15 POC ABG HCO3 22.7 01/07/21 03:07 ABG HCO3 25.3 mmol/L (20.0-26.0) 01/06/21 04:15 ABG O2 Saturation 97.6 (0-100) 01/07/21 03:07 ABG O2 Content 12.7 (0.0-44) 01/06/21 04:15 POC ABG Base Excess -2.7 01/07/21 03:07 ABG Base Excess 0.0 mmol/L (-2.0-3.0) 01/06/21 04:15 ABG Hemoglobin 11.9 (12.0-17.5) L 01/07/21 03:07 ABG Oxyhemoglobin 96.6 (94-98) 01/07/21 03:07 ABG Carboxyhemoglobin 1.5 % (0.0-5.0) 01/06/21 04:15 ABG Methemoglobin 0.3 (0.0-1.5) 01/07/21 03:07 ABG Sodium 135.6 mmol/L (136.0-145.0) L 01/07/21 03:07 ABG Potassium 4.0 mmol/L (3.40-4.50) 01/07/21 03:07 ABG Chloride 102.0 mmol/L (98-107) 01/07/21 03:07 ABG Glucose 181 mg/dL (65-95) H 01/07/21 03:07 Oxyhemoglobin 97.2 % (95.0-99.0) 01/06/21 04:15 Carboxyhemoglobin 0.7 (0.5-1.5) 01/07/21 03:07 FiO2 45 % 01/06/21 04:15 FiO2 % 45.0 01/07/21 03:07 Sodium 137 mmol/L (137-145) 01/07/21 04:50 Potassium 4.4 mmol/L (3.6-5.0) 01/07/21 04:50 Chloride 100.3 mmol/L (98-107) 01/07/21 04:50 Carbon Dioxide 23 mmol/L (22-30) 01/07/21 04:50 Anion Gap 18 mmol/L 01/07/21 04:50 BUN 60 mg/dL (9-20) H 01/07/21 04:50 Creatinine 6.3 mg/dL (0.8-1.3) H 01/07/21 04:50 Estimated GFR 11 ml/min 01/07/21 04:50 BUN/Creatinine Ratio 10 % 01/07/21 04:50 Glucose 154 mg/dL (75-100) H 01/07/21 04:50 POC Glucose 202 mg/dL (70-105) H 01/06/21 22:21 Lactic Acid 1.50 mmol/L (0.7-2.0) 01/02/21 18:00 Calcium 8.3 mg/dL (8.4-10.2) L 01/07/21 04:50 Phosphorus 4.40 mg/dL (2.5-4.5) 01/06/21 04:45 Magnesium 2.00 mg/dL (1.7-2.3) 01/06/21 04:45 Total Bilirubin 2.10 mg/dL (0.1-1.2) H 01/01/21 17:58 AST 223 units/L (5-40) H 01/01/21 17:58 ALT 100 units/L (7-56) H 01/01/21 17:58 Alkaline Phosphatase 206 units/L (35-129) H 01/01/21 17:58 Ammonia 30.0 umol/L (25-60) 12/22/20 14:38 Troponin T 0.021 ng/mL (0.00-0.029) 12/22/20 14:38 Total Protein 4.8 g/dL (6.3-8.2) L 01/01/21 17:58 Albumin 1.9 g/dL (3.9-5) L 01/01/21 17:58 Albumin/Globulin Ratio 0.7 % 01/01/21 17:58 Triglycerides 155 mg/dL (2-149) H 12/30/20 09:00 Lipase 41 units/L (13-60) 12/22/20 14:38 Procalcitonin > 200.00 ng/mL (<0.15) 12/24/20 15:06 TSH 1.470 mlU/mL (0.270-4.200) 12/28/20 19:44 Arterial Blood Glucose 181 mg/dL (65-95) H 01/07/21 03:07 Arterial Blood Ionized Calcium 4.3 mg/dL (4.6-5.3) L 01/07/21 03:07 Urine Color Yellow (Yellow) 12/22/20 18:53 Urine Turbidity Clear (Clear) 12/22/20 18:53 Urine pH 7.0 (5.0-7.0) 12/22/20 18:53 Ur Specific Clifford 1.012 (1.003-1.030) 12/22/20 18:53 Urine Protein >500 mg/dL (Negative) 12/22/20 18:53 Urine Glucose (UA) Neg mg/dL (Negative) 12/22/20 18:53 Urine Ketones Neg mg/dL (Negative) 12/22/20 18:53 Urine Blood Neg (Negative) 12/22/20 18:53 Urine Nitrite Neg (Negative) 12/22/20 18:53 Urine Bilirubin Neg (Negative) 12/22/20 18:53 Urine Urobilinogen < 2.0 mg/dL (<2.0) 12/22/20 18:53 Ur Leukocyte Esterase Neg (Negative) 12/22/20 18:53 Urine WBC (Auto) < 1.0 /HPF (0.0-6.0) 12/22/20 18:53 Urine RBC (Auto) 1.0 /HPF (0.0-6.0) 12/22/20 18:53 Fluid Type Dialysate 12/22/20 Unknown Fluid Color Colorless 12/22/20 Unknown Fluid Appearance Cloudy 12/22/20 Unknown Fluid WBC 208 /mm3 12/22/20 Unknown Fluid RBC 45 /mm3 12/22/20 Unknown Fluid Seg Neutrophils 82.0 % 12/22/20 Unknown Fluid Lymphocytes 11.0 % 12/22/20 Unknown Fluid Reactive Lymphs 0 % 12/22/20 Unknown Fluid Monocytes 7.0 % 12/22/20 Unknown Fluid Eosinophils 0 % 12/22/20 Unknown Fluid Basophils 0 % 12/22/20 Unknown Random Vancomycin 13.7 ug/mL (0-40.0) 12/26/20 Unknown Hepatitis A IgM Ab Non-reactive (NonReactive) 12/23/20 11:38 Hep Bs Antigen Non-reactive (Negative) 12/23/20 11:38 Hep B Core IgM Ab Non-reactive (NonReactive) 12/23/20 11:38 Hepatitis C Antibody Non-reactive (NonReactive) 12/23/20 11:38 Blood Type A POSITIVE 01/06/21 07:10 Antibody Screen Negative 01/06/21 07:10 Crossmatch See Detail 01/06/21 07:10 Microbiology: Microbiology 12/22/20 14:38 Peripheral/Venous Blood Culture - Final Streptococcus Bovis Prevotella Oralis Group Jeffery/IV: Voiding Method Incontinent Active Medications - Current Medications Current Medications: Generic Name Dose Route Start Last Admin Trade Name Freq PRN Reason Stop Dose Admin Acetaminophen 650 mg 12/31/20 15:30 12/31/20 15:13 Acetaminophen 650 Mg Rect Supp VT 650 mg Q6H PRN Administration Non Cardiac Pain or Temp>100.5 Digoxin 0.125 mg 12/31/20 10:00 01/06/21 18:31 Digoxin 0.5 Mg/2 Ml Inj IV 0.125 mg Q48HR THOMAS Administration Famotidine 10 mg 12/24/20 13:00 01/06/21 21:04 Famotidine 20 Mg/2 Ml Inj IV 10 mg BID THOMAS Administration Fentanyl 50 mcg 12/24/20 11:35 01/01/21 11:28 Fentanyl 100 Mcg/2 Ml Inj IV 50 mcg Q10MIN PRN Administration ANALGESIA Haloperidol Lactate 5 mg 12/29/20 14:16 12/31/20 00:19 Haloperidol Lactate 5 Mg/1 Ml Inj IV 5 mg Q12H PRN Administration Agitation Heparin Sodium (Porcine) 5,000 unit 12/24/20 10:00 01/06/21 21:04 Heparin 5,000 Unit/1 Ml Vial SUB-Q 5,000 unit Q12HR THOMAS Administration Hydralazine HCl 10 mg 12/30/20 12:00 01/07/21 06:00 Hydralazine 20 Mg/1 Ml Inj IV 10 mg Q4HR THOMAS Administration Hydrophilic Ointment 1 applic 12/31/20 06:39 Lip Therapy Vaseline TP Q2HR PRN Dry Lips Sodium Chloride 100 mls @ 999 mls/hr 12/23/20 11:03 Nacl 0.9% IV RYLAND PRN Hypotension Fentanyl Citrate 2,000 mcg in 100 mls @ 4.725 mls/hr 12/31/20 08:00 01/06/21 19:40 Fentanyl Drip Premix IV 1 mcg/kg/hr TITR THOMAS 4.725 mls/hr Titration Protocol 1 MCG/KG/HR NORepinephrine/NS 8 MG-250 ML 8 mg in 250 mls @ 3.75 mls/hr 12/31/20 09:00 01/03/21 08:30 Norepinephrine/Ns 8 Mg-250 Ml (Double Conc) IV 0 mcg/min TITRATE THOMAS 0 mls/hr Titration Protocol 2 MCG/MIN Vasopressin 20 unit/ Sodium 101 mls @ 9.09 mls/hr 12/31/20 21:00 01/02/21 21:13 Chloride IV 0 units/min TITR THOMAS 0 mls/hr Titration Protocol 0.03 UNITS/MIN Phenylephrine HCl 100 mg/ 100 mls @ 3 mls/hr 12/31/20 23:45 01/01/21 18:30 Sodium Chloride IV 0 mcg/min TITR THOMAS 0 mls/hr Titration Protocol 50 MCG/MIN Sodium Chloride 500 mls @ 0 mls/hr 01/03/21 17:03 Nacl 0.9% 500 Ml IV ONCE THOMAS As Directed Amino Acids/Electrolytes/Dextrose 2,016 mls @ 84 mls/hr 01/06/21 20:00 01/06/21 20:04 Tpn Adult IV 01/07/21 19:59 84 mls/hr DAILY@1999 [facility] Administration Protocol Fat Emulsion Intravenous 250 mls @ 21 mls/hr 01/06/21 20:00 01/06/21 20:02 Intralipid 20% IV 01/07/21 07:59 21 mls/hr DAILY@1999 [facility] Administration Insulin Glargine 10 units 01/03/21 10:00 01/06/21 14:46 Insulin Glargine 100 Units/Ml SUB-Q 10 units DAILY THOMAS Administration Insulin Human Lispro 0 unit 01/03/21 12:00 01/07/21 06:01 Insulin Lispro 100 Unit/Ml SUB-Q 3 unit Q6HR [facility] Administration Protocol Metoprolol Tartrate 5 mg 12/30/20 12:00 01/07/21 06:00 Metoprolol Tartrate 5 Mg/5 Ml Inj IV 5 mg Q4HR [facility] Administration Multi-Ingred Cream/Lotion/Oil/Oint 1 applic 12/31/20 06:39 Mineral Oil/Petrolatum, White Ophth Oint 3.5 Gm OU Q4HR PRN Dry Eye(s) Sodium Chloride 10 ml 12/22/20 22:00 01/06/21 21:04 Sodium Chloride 0.9% 10 Ml Flush Syringe IV 10 ml BID THOMAS Administration Sodium Chloride 10 ml 12/22/20 19:42 Sodium Chloride 0.9% 10 Ml Flush Syringe IV PRN PRN LINE FLUSH Nutrition/Malnutrition Assess - Dietary Evaluation Nutrition/Malnutrition Findings: Nutrition Notes Start: 12/24/20 12:36 Freq: Status: Active Protocol: Document 05/14/21 11:29 AL (Rec: 01/06/21 11:32 AL [id number]) Co-Sign 01/06/21 11:29 CW Nutrition Notes Initial or Follow up Reassessment Current Diagnosis CKD (stage V CKD),Sepsis, Hypertension,Heart Failure Other Pertinent Diagnosis bacterial peritonitis, on HD MWF/PRN, SBO, Crohns disease, Anemia Current Diet TPN at 84 ml/hr Labs/Tests Na 135 BUN 82 Cr 8.7 Cl 95.9 Pertinent Medications Reviewed Height 5 ft 7 in Weight 90.8 kg [place] Body Weight (kg) 67.27 BMI 31.3 Weight Status Obese Subjective/Other Information TPN Day 12. Pt still intubated . Will give Lipids and MVI today. Percent of energy/protein needs met: 100%/100% Burn Absent Trauma Absent Difficulty In Swallowing Current % PO Negligible Minimum of two criteria No Energy Intake (non-severe) <75% Estimated Energy Requirement >7 days #1 Nutrition Diagnosis Inadequate oral intake Diagnosis Progress(for reassessment Continues documentation) Is patient on ventilator? Yes Is Patient Ambulatory and/or Out of Bed No REE-([facility]-confined to bed) 2004.816 Kcal/Kg value to use for calculation 21 Approximate Energy Requirements Using 1907 kcal/Kg Calculation Used for Recommendations Kcal/kg Additional Notes Protein needs: >135 g (>2g/kg IBW) fluid needs: 1 mL/kcal or per MD Nutrition Intervention Change Diet Order: Continue CPN Nutrition Support: CPN at 84 ml/hr Cl/CO2 100%/0% Kcal 2,230 Protein (gm) 135 Carbohydrates (gm) 350 Fat (gm) 50 Fluid (mL) 2,266 Goal #1 Meet at least 75% of estimated energy and protein needs via CPN Anticipated Discharge Needs: unable to determine at this time Follow-Up By: 01/07/21 Additional Comments Labs in AM: BMP.
[2021-01-07 08:57] LABS: Hematocrit 33.3 % (35.5-45.6); Hemoglobin 11.1 gm/dl (11.8-15.2); Mean Corpuscular HGB Conc 33 % (32-34); Mean Corpuscular Volume 90 fl (84-94); Platelet Count 262 K/mm3 (140-440); Red Blood Count 3.72 M/mm3 (3.65-5.03)
[2021-01-07 09:00] LABS: Basophils % (Auto) 0.4 % (0.0-1.8); Eosinophils % (Auto) 0.4 % (0.0-4.3); Lymphocytes % (Auto) 3.2 % (13.4-35.0); Monocytes % (Auto) 9.4 % (0.0-7.3)
[2021-01-07 09:01] LABS: Basophils # (Auto) 0.1 K/mm3 (0.0-0.1); Eosinophils # (Auto) 0.1 K/mm3 (0.0-0.4); Lymphocytes # (Auto) 0.4 K/mm3 (1.2-5.4); Monocytes # (Auto) 1.2 K/mm3 (0.0-0.8)
--- NOTE | 2021-01-07 09:25 | Progress Note ---
Assessment and Plan - Patient Problems (1) Atrial fibrillation Current Visit: Yes Status: Acute (2) Accelerated hypertension Current Visit: No Status: Acute Subjective Date of service: 01/07/21 Principal diagnosis: Ac hypoxemic resp failure; Severe Sepsis; Peritonitis; Acute SBO; ESRD; CHF Interval history: APPEARS ALERT,,,ON MECH. VENT.,,LABORED RESPIRATRIONS. Objective Vital Signs Temp Pulse Pulse Resp BP Pulse Ox Pulse Ox 01/07/21 08:30 104 H 146/76 100 01/07/21 08:00 98.8 F 01/07/21 06:00 103 H 22 135/80 100 01/07/21 05:30 101 H 26 H 142/75 99 01/07/21 05:00 99 H 25 H 140/72 98 01/07/21 04:30 100 H 27 H 148/80 99 01/07/21 04:00 99 H 102 H 24 140/76 98 01/07/21 03:30 92 H 20 135/67 99 01/07/21 03:25 97 H 133/71 98 01/07/21 03:00 96 H 25 H 135/71 98 01/07/21 02:30 92 H 25 H 126/65 99 01/07/21 02:00 92 H 26 H 137/68 99 01/07/21 01:30 82 26 H 129/63 99 01/07/21 01:00 83 23 119/60 100 01/07/21 00:30 92 H 24 136/70 98 01/07/21 00:00 89 94 H 23 137/71 98 01/06/21 23:38 90 137/66 97 01/06/21 23:30 88 22 137/66 97 01/06/21 23:00 86 22 127/65 97 01/06/21 22:30 82 21 130/64 97 01/06/21 22:00 80 21 125/60 96 01/06/21 21:30 76 18 127/57 97 01/06/21 21:18 75 132/61 97 01/06/21 21:01 73 18 134/60 97 01/06/21 21:00 74 18 134/60 97 01/06/21 20:30 83 21 143/70 96 01/06/21 20:00 81 81 20 154/74 96 01/06/21 19:30 81 20 159/76 95 01/06/21 19:00 79 20 154/71 95 01/06/21 18:42 79 175/89 01/06/21 18:32 85 175/89 01/06/21 18:31 84 175/89 01/06/21 18:30 85 16 175/89 95 01/06/21 18:00 92 H 16 171/90 99 01/06/21 17:50 97.7 F 98 H 13 171/104 99 01/06/21 17:35 97 H 14 178/104 99 01/06/21 17:30 98 H 15 182/103 99 01/06/21 17:26 97 H 186/103 01/06/21 17:25 97 H 15 186/103 99 01/06/21 17:23 83 12 151/80 100 01/06/21 17:20 96.6 F L 87 20 171/99 99 01/06/21 17:17 85 20 138/90 100 01/06/21 17:15 85 20 123/82 100 01/06/21 16:00 87 86 20 100 01/06/21 13:30 79 21 151/80 100 01/06/21 13:13 79 151/80 01/06/21 13:00 77 12 149/81 100 01/06/21 12:30 79 13 152/85 100 01/06/21 12:11 98.2 F 77 12 138/79 100 01/06/21 12:00 98.5 F 77 76 14 138/79 100 01/06/21 11:45 79 146/82 01/06/21 11:40 82 146/82 100 01/06/21 11:30 80 13 135/77 100 01/06/21 11:15 80 141/74 01/06/21 11:00 77 12 136/75 100 01/06/21 10:45 80 143/82 01/06/21 10:30 81 15 148/78 100 01/06/21 10:15 85 146/79 01/06/21 10:00 84 16 145/77 100 01/06/21 09:45 85 142/79 01/06/21 09:30 83 14 141/75 100 01/06/21 09:24 88 141/77 - Physical Examination General: Other (on the vent) HEENT: Positive: PERRL Neck: Positive: neck supple Cardiac: Positive: Regular Rhythm, Tachycardia Lungs: Positive: Rhonchi (R.) Neuro: Positive: Weakness (Sedated, on the vent) Abdomen: Positive: Soft, Other (POST OP) Skin: Positive: Clear Extremities: Present: normal. Absent: edema - Labs and Meds CBC 01/07/21 Range/Units 08:37 WBC 12.4 H (4.5-11.0) K/mm3 RBC 3.72 (3.65-5.03) M/mm3 Hgb 11.1 L (11.8-15.2) gm/dl Hct 33.3 L D (35.5-45.6) % Plt Count 262 (140-440) K/mm3 Lymph # (Auto) 0.4 L (1.2-5.4) K/mm3 [place] # (Auto) 1.2 H (0.0-0.8) K/mm3 Eos # (Auto) 0.1 (0.0-0.4) K/mm3 Baso # (Auto) 0.1 (0.0-0.1) K/mm3 Comprehensive Metabolic Panel 01/07/21 Range/Units 04:50 Sodium 137 (137-145) mmol/L Potassium 4.4 (3.6-5.0) mmol/L Chloride 100.3 (98-107) mmol/L Carbon Dioxide 23 (22-30) mmol/L BUN 60 H (9-20) mg/dL Creatinine 6.3 H (0.8-1.3) mg/dL Glucose 154 H (75-100) mg/dL Calcium 8.3 L (8.4-10.2) mg/dL - Allied health notes Allied health notes reviewed: nursing
[2021-01-07] MEDS: HEPARIN 5,000 UNIT/1 ML VIAL SUB-Q SCH ×2 (10:20→21:04)
[2021-01-07] MEDS: FAMOTIDINE 20 MG/2 ML INJ IV SCH ×2 (10:21→21:05)
[2021-01-07] MEDS: INSULIN GLARGINE 100 UNITS/ML SUB-Q SCH (10:21)
[2021-01-07] MEDS: fentaNYL DRIP Premix 2,000 MCG/100 ML BAG IV SCH (13:17)
--- NOTE | 2021-01-07 13:34 | Progress Note ---
Assessment and Plan POD#14 s/p ex lap with extensive lysis of adhesions and two small bowel resections with primary anastamosis for SBO with necrotic segment small bowel. POD#5 s/p ex lap, resection of perforated anastamosis, washout and abthera wound vac placement. POD#3 s/p ex lap with right hemicolectomy. POd#1 s/p ex lap, with jejunal-colonic anastamosis and closure of abdomen. Afebrile and stable. - post op ileus. Continue PPN Continue NGT decompression. Wean ventilator as tolerated. Subjective Date of service: 01/07/21 Narrative: no acute events overnight. Pt was noted to have a green bowel movement. Objective Vital Signs - 12hr 01/07/21 01/07/21 01/07/21 02:00 02:30 03:00 Temperature Pulse Rate 92 H 92 H 96 H Pulse Rate [ From Monitor] Respiratory 26 H 25 H 25 H Rate Blood Pressure 137/68 126/65 135/71 O2 Sat by Pulse 99 99 98 Oximetry 01/07/21 01/07/21 01/07/21 03:25 03:30 04:00 Temperature Pulse Rate 97 H 92 H 99 H Pulse Rate [ 102 H From Monitor] Respiratory 20 24 Rate Blood Pressure 133/71 135/67 140/76 O2 Sat by Pulse 98 99 98 Oximetry 01/07/21 01/07/21 01/07/21 04:30 05:00 05:30 Temperature Pulse Rate 100 H 99 H 101 H Pulse Rate [ From Monitor] Respiratory 27 H 25 H 26 H Rate Blood Pressure 148/80 140/72 142/75 O2 Sat by Pulse 99 98 99 Oximetry 01/07/21 01/07/21 01/07/21 06:00 06:30 07:00 Temperature Pulse Rate 103 H 93 H 98 H Pulse Rate [ From Monitor] Respiratory 22 22 26 H Rate Blood Pressure 135/80 126/64 124/68 O2 Sat by Pulse 100 99 100 Oximetry 01/07/21 01/07/21 01/07/21 07:30 08:00 08:30 Temperature 98.8 F Pulse Rate 99 H 98 H 99 H Pulse Rate [ 102 H From Monitor] Respiratory 27 H 26 H 25 H Rate Blood Pressure 130/68 131/68 136/73 O2 Sat by Pulse 100 99 100 Oximetry 01/07/21 01/07/21 01/07/21 09:00 09:10 09:30 Temperature Pulse Rate 103 H 105 H 106 H Pulse Rate [ From Monitor] Respiratory 27 H 30 H 34 H Rate Blood Pressure 135/75 167/74 133/67 O2 Sat by Pulse 100 96 Oximetry 01/07/21 01/07/21 01/07/21 10:00 10:30 11:00 Temperature Pulse Rate 100 H 93 H 92 H Pulse Rate [ From Monitor] Respiratory 27 H 25 H 26 H Rate Blood Pressure 124/65 119/60 130/63 O2 Sat by Pulse 99 98 100 Oximetry 01/07/21 01/07/21 01/07/21 11:26 11:28 11:30 Temperature Pulse Rate 92 H 91 H Pulse Rate [ 102 H From Monitor] Respiratory 24 27 H Rate Blood Pressure 130/70 O2 Sat by Pulse 100 100 Oximetry 01/07/21 01/07/21 01/07/21 12:00 12:30 12:48 Temperature Pulse Rate 94 H 93 H 93 H Pulse Rate [ From Monitor] Respiratory 16 25 H 23 Rate Blood Pressure 144/71 146/74 146/74 O2 Sat by Pulse 99 99 99 Oximetry 01/07/21 13:00 Temperature Pulse Rate 94 H Pulse Rate [ From Monitor] Respiratory 22 Rate Blood Pressure 150/71 O2 Sat by Pulse 99 Oximetry - General physical appearance well developed, no distress, no pain - Respiratory normal expansion, normal respiratory effort, other (intubated on vent) - Abdomen soft, distended, not rebound, not rigid, other (incisinoal vac with sero- sanguinous fluid. NGT turning gastric in color) - Labs 01/07/21 08:37 01/07/21 04:50 Diabetes panel 01/07/21 Range/Units 04:50 Sodium 137 (137-145) mmol/L Potassium 4.4 (3.6-5.0) mmol/L Chloride 100.3 (98-107) mmol/L Carbon Dioxide 23 (22-30) mmol/L BUN 60 H (9-20) mg/dL Creatinine 6.3 H (0.8-1.3) mg/dL Glucose 154 H (75-100) mg/dL Calcium 8.3 L (8.4-10.2) mg/dL Calcium panel 01/07/21 Range/Units 04:50 Calcium 8.3 L (8.4-10.2) mg/dL Pituitary panel 01/07/21 Range/Units 04:50 Sodium 137 (137-145) mmol/L Potassium 4.4 (3.6-5.0) mmol/L Chloride 100.3 (98-107) mmol/L Carbon Dioxide 23 (22-30) mmol/L BUN 60 H (9-20) mg/dL Creatinine 6.3 H (0.8-1.3) mg/dL Glucose 154 H (75-100) mg/dL Calcium 8.3 L (8.4-10.2) mg/dL Adrenal panel 01/07/21 Range/Units 04:50 Sodium 137 (137-145) mmol/L Potassium 4.4 (3.6-5.0) mmol/L Chloride 100.3 (98-107) mmol/L Carbon Dioxide 23 (22-30) mmol/L BUN 60 H (9-20) mg/dL Creatinine 6.3 H (0.8-1.3) mg/dL Glucose 154 H (75-100) mg/dL Calcium 8.3 L (8.4-10.2) mg/dL
--- NOTE | 2021-01-07 14:19 | Progress Note ---
Assessment and Plan Acute hypoxemic respiratory failure, on mechanical ventilatory support. Severe Sepsis Peritonitis Acute small-bowel obstruction with tissue necrosis. End-stage renal disease, on dialysis. Hypertension. Crohn's disease. Gastroesophageal reflux disease. Heart failure with reduced ejection fraction. Hyperkalemia. Anemia that is normocytic. Lactic acidosis. Oropharyngeal dysphagia - headed to O.R. - keep set rate at 12/min - continue total parenteral nutrition - wean vasopressors for target MAP > 65 mmHg - continue wound care per RN/WCN - continue care as below otherwise; - continue Daily SAT and SBT assessment as tolerated - continue to wean supplemental oxygen for target O2 sat's > 92% acutely - VAP bundle addressed - continue lung protective strategies - continue bronchodilators with pulmonary hygiene per RT - wean per pulmonary driven protocols otherwise - HD/UF per nephrology prescription for toxin and volume control - avoid nephrotoxins, renally dose all medications - continue accuchecks with glycemic control per SSI (While critically ill target blood glucose of 140-180 mg/dL; avoid hypoglycemia) - sedation prn for target RASS 0 to -1 - continue to avoid benzodiazepine's, reduce the possibility of delirium - complete AB's per ID rec's - prn analgesia per CPOT score - Maintenance of sleep-wake cycle, avoid delirium - enteral nutritional support at goal rate as tolerated (once cleared by surgeon) - G.I. & VTE prophylaxis - PT/OT/ROM exercises - continue mobility protocols for pressure ulcer prophylaxis - Monitor hemodynamics closely - continue other care per attending / other consultants - discharge planning ongoing concurrently .... Re-evaluate in am & prn CONDITION: CRITICAL PROGNOSIS: GUARDED CODE STATUS: FULL CODE The high probability of a clinically significant, sudden or life-threatening deterioration of the [respiratory, cardiovascular, GI & neurologic] system(s) required my full and direct attention, intervention and personal management. The aggregate critical care time was [32] minutes without overlap. Time includes spent on; [x] Data Review and interpretation [x] Patient assessment and monitoring of vital signs [x] Documentation [x] Medication orders and management Subjective Date of service: 01/06/21 Principal diagnosis: Ac hypoxemic resp failure; Severe Sepsis; Peritonitis; Acute SBO; ESRD; CHF Interval history: Patient is seen today for: Ac hypoxemic resp failure; Severe Sepsis; Peritonitis; Acute SBO; ESRD on Dialysis; HTN; Crohn's disease; HFrEF Seen and examined at bedside; 24hour events reviewed; nursing and respiratory care staff consulted; no adverse overnight events reported to me; resting in bed; about to head to OR; remains on MVS; denies N/V/F/C Objective Vital Signs - 12hr 01/06/21 01/06/21 01/06/21 02:01 02:31 03:00 Temperature Pulse Rate 79 77 75 Pulse Rate [ From Monitor] Respiratory 15 14 12 Rate Blood Pressure 171/84 171/84 143/78 O2 Sat by Pulse 99 99 100 Oximetry O2 Sat by Pulse Oximetry [ Anterior Bilateral Throughout] 01/06/21 01/06/21 01/06/21 03:31 03:51 04:00 Temperature 98.2 F Pulse Rate 80 80 Pulse Rate [ 83 From Monitor] Respiratory 16 13 Rate Blood Pressure 143/78 158/78 O2 Sat by Pulse 99 99 Oximetry O2 Sat by Pulse Oximetry [ Anterior Bilateral Throughout] 01/06/21 01/06/21 01/06/21 04:31 05:00 05:16 Temperature Pulse Rate 79 74 80 Pulse Rate [ From Monitor] Respiratory 15 14 Rate Blood Pressure 143/78 153/82 158/78 O2 Sat by Pulse 100 100 100 Oximetry O2 Sat by Pulse Oximetry [ Anterior Bilateral Throughout] 01/06/21 01/06/21 01/06/21 05:31 06:00 06:31 Temperature Pulse Rate 73 79 82 Pulse Rate [ From Monitor] Respiratory 12 14 15 Rate Blood Pressure 153/82 151/76 151/76 O2 Sat by Pulse 100 99 99 Oximetry O2 Sat by Pulse Oximetry [ Anterior Bilateral Throughout] 01/06/21 01/06/21 01/06/21 07:00 07:31 08:00 Temperature Pulse Rate 85 83 81 Pulse Rate [ 76 From Monitor] Respiratory 14 17 13 Rate Blood Pressure 154/80 154/80 152/74 O2 Sat by Pulse 99 100 99 Oximetry O2 Sat by Pulse Oximetry [ Anterior Bilateral Throughout] 01/06/21 01/06/21 01/06/21 08:15 08:30 08:45 Temperature 98.2 F Pulse Rate 80 78 81 Pulse Rate [ From Monitor] Respiratory 13 14 Rate Blood Pressure 147/75 147/75 149/76 O2 Sat by Pulse 100 100 Oximetry O2 Sat by Pulse 100 Oximetry [ Anterior Bilateral Throughout] 01/06/21 01/06/2121 09:00 09:15 09:23 Temperature 98.3 F Pulse Rate 82 85 88 Pulse Rate [ From Monitor] Respiratory 15 Rate Blood Pressure 144/76 141/77 141/77 O2 Sat by Pulse 100 Oximetry O2 Sat by Pulse Oximetry [ Anterior Bilateral Throughout] 01/06/21 01/06/21 01/06/21 09:24 09:30 09:45 Temperature Pulse Rate 88 83 85 Pulse Rate [ From Monitor] Respiratory 14 Rate Blood Pressure 141/77 141/75 142/79 O2 Sat by Pulse 100 Oximetry O2 Sat by Pulse Oximetry [ Anterior Bilateral Throughout] 01/06/21 01/06/21 01/06/21 10:00 10:15 10:30 Temperature Pulse Rate 84 85 81 Pulse Rate [ From Monitor] Respiratory 16 15 Rate Blood Pressure 145/77 146/79 148/78 O2 Sat by Pulse 100 100 Oximetry O2 Sat by Pulse Oximetry [ Anterior Bilateral Throughout] 01/06/21 01/06/21 01/06/21 10:45 11:00 11:15 Temperature Pulse Rate 80 77 80 Pulse Rate [ From Monitor] Respiratory 12 Rate Blood Pressure 143/82 136/75 141/74 O2 Sat by Pulse 100 Oximetry O2 Sat by Pulse Oximetry [ Anterior Bilateral Throughout] 01/06/21 01/06/21 01/06/21 11:30 11:40 11:45 Temperature Pulse Rate 80 82 79 Pulse Rate [ From Monitor] Respiratory 13 Rate Blood Pressure 135/77 146/82 146/82 O2 Sat by Pulse 100 100 Oximetry O2 Sat by Pulse Oximetry [ Anterior Bilateral Throughout] 01/06/21 01/06/21 01/06/21 12:00 12:11 12:30 Temperature 98.5 F 98.2 F Pulse Rate 77 77 79 Pulse Rate [ 76 From Monitor] Respiratory 14 12 13 Rate Blood Pressure 138/79 138/79 152/85 O2 Sat by Pulse 100 100 Oximetry O2 Sat by Pulse 100 Oximetry [ Anterior Bilateral Throughout] 01/06/21 13:00 Temperature Pulse Rate 77 Pulse Rate [ From Monitor] Respiratory 12 Rate Blood Pressure 149/81 O2 Sat by Pulse 100 Oximetry O2 Sat by Pulse Oximetry [ Anterior Bilateral Throughout] Constitutional: no acute distress, other (elderly male riding set rate on MVS) Eyes: non-icteric ENT: oropharynx moist, other (ETT 24 cm LEEANN) Neck: supple, no lymphadenopathy, no JVD Effort: normal Ascultation: Bilateral: diminished breath sounds, rhonchi (scant, bases) Percussion: Bilateral: not dull Cardiovascular: regular rate and rhythm Gastrointestinal: hypoactive bowel sounds, soft, non-tender, non-distended (protuberant), other (Midline abdominal incision with wound-vac in place) Integumentary: other (Midline abdominal incision with wound-vac in place) Extremities: no cyanosis, no edema, pulses normal, no ischemia or petechiae Neurologic: non-focal exam (grossly), pupils equal and round, CN II-XII normal, motor strength normal and (sedated) Psychiatric: mood appropriate, affect normal CBC and BMP: 01/07/21 08:37 01/07/21 04:50 ABG, PT/INR, D-dimer: ABG ABG pH 7.377 pH Units (7.350-7.450) 01/06/21 04:15 POC ABG pCO2 43.2 mmHg (32.0-48.0) 01/05/21 03:23 ABG pCO2 44.0 mm Hg 01/06/21 04:15 POC ABG pO2 62.8 mmHg (83-108) L 01/05/21 03:23 ABG pO2 191.0 mm Hg (80.0-90.0) H 01/06/21 04:15 POC ABG HCO3 27.7 01/05/21 03:23 ABG O2 Saturation 99.2 % (95.0-99.0) H 01/06/21 04:15 PT/INR, D-dimer PT 16.9 Sec. (12.2-14.9) H 01/01/21 12:45 INR 1.39 (0.87-1.13) H 01/01/21 12:45 Abnormal lab findings: Abnormal Labs 12/22/20 12/22/20 12/22/20 14:38 14:38 14:38 WBC RBC Hgb 11.2 L Hct 35.0 L MCV MCHC RDW 16.7 H Plt Count Lymph % (Auto) [place] % (Auto) Lymph # (Auto) Seg Neutrophils % Seg Neuts % (Manual) 94.0 H Lymphocytes % (Manual) 5.0 L Monocytes % (Manual) Seg Neutrophils # Man Lymphocytes # (Manual) 0.3 L Monocytes # (Manual) PT INR ABG pH POC ABG pCO2 POC ABG pO2 ABG pO2 ABG HCO3 ABG O2 Saturation ABG Base Excess ABG Hemoglobin ABG Oxyhemoglobin ABG Sodium ABG Potassium ABG Chloride ABG Glucose Oxyhemoglobin Sodium Potassium Chloride Carbon Dioxide BUN 58 H Creatinine 13.2 H Glucose 113 H POC Glucose Lactic Acid 3.60 H* Calcium Phosphorus Magnesium Total Bilirubin 1.30 H AST ALT Alkaline Phosphatase 155 H Total Protein Albumin Triglycerides Arterial Blood Glucose Arterial Blood Ionized Calcium Crossmatch 12/22/20 12/22/20 12/23/20 16:26 17:47 05:22 WBC RBC Hgb Hct MCV MCHC RDW Plt Count Lymph % (Auto) [place] % (Auto) Lymph # (Auto) Seg Neutrophils % Seg Neuts % (Manual) Lymphocytes % (Manual) Monocytes % (Manual) Seg Neutrophils # Man Lymphocytes # (Manual) Monocytes # (Manual) PT INR ABG pH POC ABG pCO2 POC ABG pO2 ABG pO2 ABG HCO3 ABG O2 Saturation ABG Base Excess ABG Hemoglobin ABG Oxyhemoglobin ABG Sodium ABG Potassium ABG Chloride ABG Glucose Oxyhemoglobin Sodium Potassium Chloride Carbon Dioxide BUN Creatinine Glucose POC Glucose Lactic Acid 2.80 H* 3.10 H* 2.30 H* Calcium Phosphorus Magnesium Total Bilirubin AST ALT Alkaline Phosphatase Total Protein Albumin Triglycerides Arterial Blood Glucose Arterial Blood Ionized Calcium Crossmatch 12/23/20 12/23/20 12/23/20 05:22 05:22 06:35 WBC 12.1 H RBC Hgb 11.0 L Hct 33.7 L MCV MCHC RDW 16.9 H Plt Count Lymph % (Auto) [place] % (Auto) Lymph # (Auto) Seg Neutrophils % Seg Neuts % (Manual) 93.0 H Lymphocytes % (Manual) 1.0 L Monocytes % (Manual) Seg Neutrophils # Man 11.3 H Lymphocytes # (Manual) 0.1 L Monocytes # (Manual) PT INR ABG pH POC ABG pCO2 POC ABG pO2 ABG pO2 ABG HCO3 ABG O2 Saturation ABG Base Excess ABG Hemoglobin ABG Oxyhemoglobin ABG Sodium ABG Potassium ABG Chloride ABG Glucose Oxyhemoglobin Sodium Potassium 5.7 H D Chloride Carbon Dioxide BUN 73 H Creatinine 14.2 H Glucose POC Glucose Lactic Acid 2.30 H* Calcium 7.9 L Phosphorus Magnesium Total Bilirubin 1.40 H AST 119 H ALT 130 H Alkaline Phosphatase 183 H Total Protein 6.1 L Albumin 3.6 L Triglycerides Arterial Blood Glucose Arterial Blood Ionized Calcium Crossmatch 12/23/20 12/23/20 12/23/20 11:40 13:53 16:47 WBC RBC Hgb 10.0 L Hct 30.4 L MCV MCHC RDW Plt Count Lymph % (Auto) [place] % (Auto) Lymph # (Auto) Seg Neutrophils % Seg Neuts % (Manual) Lymphocytes % (Manual) Monocytes % (Manual) Seg Neutrophils # Man Lymphocytes # (Manual) Monocytes # (Manual) PT INR ABG pH POC ABG pCO2 POC ABG pO2 137.5 H ABG pO2 ABG HCO3 ABG O2 Saturation ABG Base Excess ABG Hemoglobin 9.7 L ABG Oxyhemoglobin ABG Sodium 134.1 L ABG Potassium 6.6 H ABG Chloride ABG Glucose 103 H Oxyhemoglobin Sodium Potassium Chloride Carbon Dioxide BUN Creatinine Glucose POC Glucose Lactic Acid Calcium Phosphorus Magnesium Total Bilirubin AST ALT Alkaline Phosphatase Total Protein Albumin Triglycerides Arterial Blood Glucose 103 H Arterial Blood Ionized Calcium 3.8 L Crossmatch See Detail 12/23/20 12/23/20 12/24/20 20:35 20:40 01:20 WBC RBC Hgb Hct MCV MCHC RDW Plt Count Lymph % (Auto) [place] % (Auto) Lymph # (Auto) Seg Neutrophils % Seg Neuts % (Manual) Lymphocytes % (Manual) Monocytes % (Manual) Seg Neutrophils # Man Lymphocytes # (Manual) Monocytes # (Manual) PT INR ABG pH 7.252 L POC ABG pCO2 POC ABG pO2 ABG pO2 50.1 L ABG HCO3 ABG O2 Saturation 81.1 L ABG Base Excess -5.9 L ABG Hemoglobin 12.1 L ABG Oxyhemoglobin ABG Sodium ABG Potassium ABG Chloride ABG Glucose Oxyhemoglobin 78.6 L Sodium 134 L Potassium 6.9 H* D 6.3 H* Chloride Carbon Dioxide 18 L 20 L BUN 87 H 91 H Creatinine 15.3 H 15.3 H Glucose 103 H POC Glucose Lactic Acid Calcium 6.9 L 7.5 L Phosphorus Magnesium Total Bilirubin AST ALT Alkaline Phosphatase Total Protein Albumin Triglycerides Arterial Blood Glucose Arterial Blood Ionized Calcium Crossmatch 12/24/20 12/24/20 12/24/20 04:00 10:29 10:29 WBC RBC 3.49 L Hgb 10.5 L Hct 31.2 L MCV MCHC RDW 17.5 H Plt Count 124 L Lymph % (Auto) 3.7 L [place] % (Auto) 9.8 H Lymph # (Auto) 0.2 L Seg Neutrophils % 85.9 H Seg Neuts % (Manual) Lymphocytes % (Manual) Monocytes % (Manual) Seg Neutrophils # Man Lymphocytes # (Manual) Monocytes # (Manual) PT INR ABG pH POC ABG pCO2 28.1 L POC ABG pO2 ABG pO2 ABG HCO3 ABG O2 Saturation ABG Base Excess ABG Hemoglobin ABG Oxyhemoglobin ABG Sodium 133.9 L ABG Potassium 5.3 H ABG Chloride 108.0 H ABG Glucose Oxyhemoglobin Sodium Potassium 5.6 H Chloride Carbon Dioxide 19 L BUN 99 H Creatinine 16.9 H Glucose 52 L POC Glucose Lactic Acid Calcium 7.6 L Phosphorus Magnesium Total Bilirubin 3.50 H AST 67 H ALT 71 H Alkaline Phosphatase Total Protein 3.5 L D Albumin 2.1 L Triglycerides Arterial Blood Glucose Arterial Blood Ionized Calcium 4.0 L Crossmatch 12/25/20 12/25/20 12/25/20 03:33 04:00 04:00 WBC 3.8 L RBC 2.90 L Hgb 8.6 L Hct 25.7 L MCV MCHC RDW 16.7 H Plt Count 113 L Lymph % (Auto) [place] % (Auto) Lymph # (Auto) Seg Neutrophils % Seg Neuts % (Manual) Lymphocytes % (Manual) Monocytes % (Manual) Seg Neutrophils # Man Lymphocytes # (Manual) Monocytes # (Manual) PT INR ABG pH 7.544 H POC ABG pCO2 28.2 L POC ABG pO2 62.8 L ABG pO2 ABG HCO3 ABG O2 Saturation ABG Base Excess ABG Hemoglobin 9.3 L ABG Oxyhemoglobin 93.0 L ABG Sodium 130.3 L ABG Potassium ABG Chloride ABG Glucose 97 H Oxyhemoglobin Sodium Potassium Chloride Carbon Dioxide BUN 62 H Creatinine 11.4 H Glucose POC Glucose Lactic Acid Calcium 7.7 L Phosphorus 5.00 H Magnesium Total Bilirubin AST ALT Alkaline Phosphatase Total Protein Albumin Triglycerides Arterial Blood Glucose 97 H Arterial Blood Ionized Calcium 3.9 L Crossmatch 12/26/20 12/26/20 12/27/20 04:46 Unknown 03:40 WBC 4.1 L RBC 2.61 L Hgb 7.8 L Hct 23.4 L MCV MCHC RDW 17.1 H Plt Count 119 L Lymph % (Auto) 5.3 L [place] % (Auto) 10.6 H Lymph # (Auto) 0.2 L Seg Neutrophils % 78.8 H Seg Neuts % (Manual) Lymphocytes % (Manual) Monocytes % (Manual) Seg Neutrophils # Man Lymphocytes # (Manual) Monocytes # (Manual) PT INR ABG pH 7.333 L 7.332 L POC ABG pCO2 POC ABG pO2 ABG pO2 ABG HCO3 26.9 H ABG O2 Saturation ABG Base Excess -2.4 L ABG Hemoglobin 6.8 L 7.2 L ABG Oxyhemoglobin ABG Sodium ABG Potassium ABG Chloride ABG Glucose Oxyhemoglobin 93.0 L 93.1 L Sodium Potassium Chloride Carbon Dioxide BUN Creatinine Glucose POC Glucose Lactic Acid Calcium Phosphorus Magnesium Total Bilirubin AST ALT Alkaline Phosphatase Total Protein Albumin Triglycerides Arterial Blood Glucose Arterial Blood Ionized Calcium Crossmatch 12/27/20 12/27/20 12/27/20 06:40 06:40 11:22 WBC 4.4 L RBC 2.49 L Hgb 7.4 L Hct 22.4 L MCV MCHC RDW 17.1 H Plt Count 111 L Lymph % (Auto) 6.7 L [place] % (Auto) 12.6 H Lymph # (Auto) 0.3 L Seg Neutrophils % 77.6 H Seg Neuts % (Manual) Lymphocytes % (Manual) Monocytes % (Manual) Seg Neutrophils # Man Lymphocytes # (Manual) Monocytes # (Manual) PT INR ABG pH POC ABG pCO2 POC ABG pO2 ABG pO2 ABG HCO3 ABG O2 Saturation ABG Base Excess ABG Hemoglobin ABG Oxyhemoglobin ABG Sodium ABG Potassium ABG Chloride ABG Glucose Oxyhemoglobin Sodium Potassium Chloride Carbon Dioxide BUN 64 H Creatinine 9.8 H Glucose 147 H POC Glucose 134 H Lactic Acid Calcium 8.3 L Phosphorus 5.00 H Magnesium Total Bilirubin 3.70 H AST 72 H ALT Alkaline Phosphatase 142 H Total Protein 5.1 L D Albumin 2.9 L Triglycerides Arterial Blood Glucose Arterial Blood Ionized Calcium Crossmatch 12/27/20 12/27/20 12/28/20 17:29 23:31 03:09 WBC RBC Hgb Hct MCV MCHC RDW Plt Count Lymph % (Auto) [place] % (Auto) Lymph # (Auto) Seg Neutrophils % Seg Neuts % (Manual) Lymphocytes % (Manual) Monocytes % (Manual) Seg Neutrophils # Man Lymphocytes # (Manual) Monocytes # (Manual) PT INR ABG pH 7.474 H POC ABG pCO2 POC ABG pO2 ABG pO2 ABG HCO3 ABG O2 Saturation ABG Base Excess ABG Hemoglobin 7.8 L ABG Oxyhemoglobin ABG Sodium ABG Potassium ABG Chloride ABG Glucose Oxyhemoglobin Sodium Potassium Chloride Carbon Dioxide BUN Creatinine Glucose POC Glucose 121 H 131 H Lactic Acid Calcium Phosphorus Magnesium Total Bilirubin AST ALT Alkaline Phosphatase Total Protein Albumin Triglycerides Arterial Blood Glucose Arterial Blood Ionized Calcium Crossmatch 12/28/20 12/28/20 12/28/20 05:37 05:40 05:40 WBC 4.3 L RBC 2.40 L Hgb 7.2 L Hct 21.5 L MCV MCHC RDW 17.4 H Plt Count 112 L Lymph % (Auto) 6.5 L [place] % (Auto) 16.7 H Lymph # (Auto) 0.3 L Seg Neutrophils % 71.1 H Seg Neuts % (Manual) Lymphocytes % (Manual) Monocytes % (Manual) Seg Neutrophils # Man Lymphocytes # (Manual) Monocytes # (Manual) PT INR ABG pH POC ABG pCO2 POC ABG pO2 ABG pO2 ABG HCO3 ABG O2 Saturation ABG Base Excess ABG Hemoglobin ABG Oxyhemoglobin ABG Sodium ABG Potassium ABG Chloride ABG Glucose Oxyhemoglobin Sodium Potassium Chloride Carbon Dioxide BUN 85 H Creatinine 11.5 H Glucose 132 H POC Glucose 121 H Lactic Acid Calcium 8.2 L Phosphorus Magnesium 2.40 H Total Bilirubin 3.80 H AST 70 H ALT Alkaline Phosphatase 176 H Total Protein 5.0 L Albumin 2.9 L Triglycerides Arterial Blood Glucose Arterial Blood Ionized Calcium Crossmatch 12/28/20 12/28/20 12/28/20 11:34 15:00 17:35 WBC RBC Hgb Hct MCV MCHC RDW Plt Count Lymph % (Auto) [place] % (Auto) Lymph # (Auto) Seg Neutrophils % Seg Neuts % (Manual) Lymphocytes % (Manual) Monocytes % (Manual) Seg Neutrophils # Man Lymphocytes # (Manual) Monocytes # (Manual) PT INR ABG pH 7.461 H POC ABG pCO2 POC ABG pO2 72.2 L ABG pO2 ABG HCO3 ABG O2 Saturation ABG Base Excess ABG Hemoglobin 8.2 L ABG Oxyhemoglobin 93.6 L ABG Sodium 134.1 L ABG Potassium 3.2 L ABG Chloride ABG Glucose 135 H Oxyhemoglobin Sodium Potassium Chloride Carbon Dioxide BUN Creatinine Glucose POC Glucose 137 H 144 H Lactic Acid Calcium Phosphorus Magnesium Total Bilirubin AST ALT Alkaline Phosphatase Total Protein Albumin Triglycerides Arterial Blood Glucose 135 H Arterial Blood Ionized Calcium 4.4 L Crossmatch 12/28/20 12/28/20 12/29/20 19:44 Unknown 00:21 WBC RBC Hgb Hct MCV MCHC RDW Plt Count Lymph % (Auto) [place] % (Auto) Lymph # (Auto) Seg Neutrophils % Seg Neuts % (Manual) Lymphocytes % (Manual) Monocytes % (Manual) Seg Neutrophils # Man Lymphocytes # (Manual) Monocytes # (Manual) PT INR ABG pH 7.474 H POC ABG pCO2 POC ABG pO2 ABG pO2 ABG HCO3 ABG O2 Saturation ABG Base Excess ABG Hemoglobin 7.8 L ABG Oxyhemoglobin ABG Sodium 133.2 L ABG Potassium ABG Chloride ABG Glucose 139 H Oxyhemoglobin Sodium 135 L Potassium Chloride 96.6 L Carbon Dioxide BUN 47 H Creatinine 7.4 H Glucose 130 H POC Glucose 142 H Lactic Acid Calcium 8.3 L Phosphorus Magnesium Total Bilirubin AST ALT Alkaline Phosphatase Total Protein Albumin Triglycerides Arterial Blood Glucose 139 H Arterial Blood Ionized Calcium 4.3 L Crossmatch 12/29/20 12/29/20 12/29/20 05:16 05:16 05:26 WBC RBC 2.53 L Hgb 7.7 L Hct 22.8 L MCV MCHC RDW 17.0 H Plt Count 130 L Lymph % (Auto) [place] % (Auto) Lymph # (Auto) Seg Neutrophils % Seg Neuts % (Manual) 79.0 H Lymphocytes % (Manual) 9.0 L Monocytes % (Manual) Seg Neutrophils # Man Lymphocytes # (Manual) 0.6 L Monocytes # (Manual) PT INR ABG pH POC ABG pCO2 POC ABG pO2 ABG pO2 ABG HCO3 ABG O2 Saturation ABG Base Excess ABG Hemoglobin ABG Oxyhemoglobin ABG Sodium ABG Potassium ABG Chloride ABG Glucose Oxyhemoglobin Sodium Potassium 3.4 L Chloride 96.6 L Carbon Dioxide BUN 59 H Creatinine 8.3 H Glucose 127 H POC Glucose 141 H Lactic Acid Calcium 8.2 L Phosphorus Magnesium Total Bilirubin 3.00 H AST 88 H ALT Alkaline Phosphatase 188 H Total Protein 5.1 L Albumin 2.8 L Triglycerides Arterial Blood Glucose Arterial Blood Ionized Calcium Crossmatch 12/29/20 12/29/20 12/29/20 11:33 17:29 23:22 WBC RBC Hgb Hct MCV MCHC RDW Plt Count Lymph % (Auto) [place] % (Auto) Lymph # (Auto) Seg Neutrophils % Seg Neuts % (Manual) Lymphocytes % (Manual) Monocytes % (Manual) Seg Neutrophils # Man Lymphocytes # (Manual) Monocytes # (Manual) PT INR ABG pH POC ABG pCO2 POC ABG pO2 ABG pO2 ABG HCO3 ABG O2 Saturation ABG Base Excess ABG Hemoglobin ABG Oxyhemoglobin ABG Sodium ABG Potassium ABG Chloride ABG Glucose Oxyhemoglobin Sodium Potassium Chloride Carbon Dioxide BUN Creatinine Glucose POC Glucose 144 H 130 H 117 H Lactic Acid Calcium Phosphorus Magnesium Total Bilirubin AST ALT Alkaline Phosphatase Total Protein Albumin Triglycerides Arterial Blood Glucose Arterial Blood Ionized Calcium Crossmatch 12/30/20 12/30/20 12/30/20 05:23 08:15 09:00 WBC RBC Hgb Hct MCV MCHC RDW Plt Count Lymph % (Auto) [place] % (Auto) Lymph # (Auto) Seg Neutrophils % Seg Neuts % (Manual) Lymphocytes % (Manual) Monocytes % (Manual) Seg Neutrophils # Man Lymphocytes # (Manual) Monocytes # (Manual) PT INR ABG pH POC ABG pCO2 POC ABG pO2 ABG pO2 ABG HCO3 ABG O2 Saturation ABG Base Excess ABG Hemoglobin ABG Oxyhemoglobin ABG Sodium ABG Potassium ABG Chloride ABG Glucose Oxyhemoglobin Sodium 135 L Potassium Chloride 95.9 L Carbon Dioxide BUN 85 H Creatinine 10.6 H Glucose 128 H POC Glucose 135 H 127 H Lactic Acid Calcium 8.3 L Phosphorus Magnesium Total Bilirubin 2.40 H AST 85 H ALT Alkaline Phosphatase 216 H Total Protein 5.3 L Albumin 2.6 L Triglycerides 155 H Arterial Blood Glucose Arterial Blood Ionized Calcium Crossmatch 12/30/20 12/30/20 12/30/20 09:00 11:53 15:49 WBC RBC 2.61 L Hgb 7.8 L Hct 23.7 L MCV MCHC RDW 17.3 H Plt Count Lymph % (Auto) [place] % (Auto) Lymph # (Auto) Seg Neutrophils % Seg Neuts % (Manual) Lymphocytes % (Manual) Monocytes % (Manual) Seg Neutrophils # Man Lymphocytes # (Manual) Monocytes # (Manual) PT INR ABG pH POC ABG pCO2 POC ABG pO2 ABG pO2 ABG HCO3 ABG O2 Saturation ABG Base Excess ABG Hemoglobin ABG Oxyhemoglobin ABG Sodium ABG Potassium ABG Chloride ABG Glucose Oxyhemoglobin Sodium Potassium Chloride Carbon Dioxide BUN Creatinine Glucose POC Glucose 155 H 146 H Lactic Acid Calcium Phosphorus Magnesium Total Bilirubin AST ALT Alkaline Phosphatase Total Protein Albumin Triglycerides Arterial Blood Glucose Arterial Blood Ionized Calcium Crossmatch 12/30/20 12/30/20 12/31/20 17:53 23:45 03:56 WBC RBC Hgb Hct MCV MCHC RDW Plt Count Lymph % (Auto) [place] % (Auto) Lymph # (Auto) Seg Neutrophils % Seg Neuts % (Manual) Lymphocytes % (Manual) Monocytes % (Manual) Seg Neutrophils # Man Lymphocytes # (Manual) Monocytes # (Manual) PT INR ABG pH POC ABG pCO2 POC ABG pO2 49.4 L ABG pO2 ABG HCO3 ABG O2 Saturation ABG Base Excess ABG Hemoglobin 10.3 L ABG Oxyhemoglobin 84.2 L ABG Sodium 133.1 L ABG Potassium ABG Chloride ABG Glucose 173 H Oxyhemoglobin Sodium Potassium Chloride Carbon Dioxide BUN Creatinine Glucose POC Glucose 139 H 173 H Lactic Acid Calcium Phosphorus Magnesium Total Bilirubin AST ALT Alkaline Phosphatase Total Protein Albumin Triglycerides Arterial Blood Glucose 173 H Arterial Blood Ionized Calcium Crossmatch 12/31/20 12/31/20 12/31/20 05:07 06:51 06:51 WBC 20.3 H RBC 3.32 L Hgb 9.8 L Hct 30.3 L D MCV MCHC RDW 17.3 H Plt Count Lymph % (Auto) [place] % (Auto) Lymph # (Auto) Seg Neutrophils % Seg Neuts % (Manual) 87.0 H Lymphocytes % (Manual) 10.0 L Monocytes % (Manual) Seg Neutrophils # Man 17.7 H Lymphocytes # (Manual) Monocytes # (Manual) PT INR ABG pH POC ABG pCO2 POC ABG pO2 ABG pO2 ABG HCO3 ABG O2 Saturation ABG Base Excess ABG Hemoglobin ABG Oxyhemoglobin ABG Sodium ABG Potassium ABG Chloride ABG Glucose Oxyhemoglobin Sodium Potassium 5.2 H D Chloride Carbon Dioxide BUN 62 H Creatinine 8.4 H Glucose 116 H POC Glucose 120 H Lactic Acid Calcium Phosphorus Magnesium 1.60 L Total Bilirubin AST ALT Alkaline Phosphatase Total Protein Albumin Triglycerides Arterial Blood Glucose Arterial Blood Ionized Calcium Crossmatch 12/31/20 12/31/20 12/31/20 09:38 12:19 12:22 WBC RBC Hgb Hct MCV MCHC RDW Plt Count Lymph % (Auto) [place] % (Auto) Lymph # (Auto) Seg Neutrophils % Seg Neuts % (Manual) Lymphocytes % (Manual) Monocytes % (Manual) Seg Neutrophils # Man Lymphocytes # (Manual) Monocytes # (Manual) PT INR ABG pH POC ABG pCO2 POC ABG pO2 ABG pO2 354.0 H ABG HCO3 ABG O2 Saturation 99.6 H ABG Base Excess ABG Hemoglobin 9.1 L ABG Oxyhemoglobin ABG Sodium ABG Potassium ABG Chloride ABG Glucose Oxyhemoglobin Sodium Potassium 5.2 H Chloride Carbon Dioxide BUN Creatinine Glucose POC Glucose 132 H Lactic Acid Calcium Phosphorus Magnesium Total Bilirubin AST ALT Alkaline Phosphatase Total Protein Albumin Triglycerides Arterial Blood Glucose Arterial Blood Ionized Calcium Crossmatch 12/31/20 01/01/21 01/01/21 23:23 03:03 05:04 WBC RBC Hgb Hct MCV MCHC RDW Plt Count Lymph % (Auto) [place] % (Auto) Lymph # (Auto) Seg Neutrophils % Seg Neuts % (Manual) Lymphocytes % (Manual) Monocytes % (Manual) Seg Neutrophils # Man Lymphocytes # (Manual) Monocytes # (Manual) PT INR ABG pH POC ABG pCO2 POC ABG pO2 79.6 L ABG pO2 ABG HCO3 ABG O2 Saturation ABG Base Excess ABG Hemoglobin 9.2 L ABG Oxyhemoglobin ABG Sodium 131.6 L ABG Potassium 5.8 H ABG Chloride ABG Glucose 177 H Oxyhemoglobin Sodium Potassium Chloride Carbon Dioxide BUN Creatinine Glucose POC Glucose 174 H 167 H Lactic Acid Calcium Phosphorus Magnesium Total Bilirubin AST ALT Alkaline Phosphatase Total Protein Albumin Triglycerides Arterial Blood Glucose 177 H Arterial Blood Ionized Calcium Crossmatch 01/01/21 01/01/21 01/01/21 07:31 07:31 11:31 WBC 26.1 H RBC 2.95 L Hgb 8.6 L Hct 27.1 L MCV MCHC RDW 18.2 H Plt Count Lymph % (Auto) [place] % (Auto) Lymph # (Auto) Seg Neutrophils % Seg Neuts % (Manual) 96.0 H Lymphocytes % (Manual) 4.0 L Monocytes % (Manual) Seg Neutrophils # Man 25.1 H Lymphocytes # (Manual) 1.0 L Monocytes # (Manual) PT INR ABG pH POC ABG pCO2 POC ABG pO2 ABG pO2 ABG HCO3 ABG O2 Saturation ABG Base Excess ABG Hemoglobin ABG Oxyhemoglobin ABG Sodium ABG Potassium ABG Chloride ABG Glucose Oxyhemoglobin Sodium Potassium 6.0 H Chloride Carbon Dioxide 21 L BUN 89 H Creatinine 10.5 H Glucose 179 H POC Glucose Lactic Acid Calcium Phosphorus Magnesium Total Bilirubin AST ALT Alkaline Phosphatase Total Protein Albumin Triglycerides Arterial Blood Glucose Arterial Blood Ionized Calcium Crossmatch See Detail 01/01/21 01/01/21 01/01/21 11:51 12:45 16:52 WBC RBC Hgb Hct MCV MCHC RDW Plt Count Lymph % (Auto) [place] % (Auto) Lymph # (Auto) Seg Neutrophils % Seg Neuts % (Manual) Lymphocytes % (Manual) Monocytes % (Manual) Seg Neutrophils # Man Lymphocytes # (Manual) Monocytes # (Manual) PT 16.9 H INR 1.39 H ABG pH POC ABG pCO2 POC ABG pO2 ABG pO2 ABG HCO3 ABG O2 Saturation ABG Base Excess ABG Hemoglobin ABG Oxyhemoglobin ABG Sodium ABG Potassium ABG Chloride ABG Glucose Oxyhemoglobin Sodium Potassium Chloride Carbon Dioxide BUN Creatinine Glucose POC Glucose 157 H 177 H Lactic Acid Calcium Phosphorus Magnesium Total Bilirubin AST ALT Alkaline Phosphatase Total Protein Albumin Triglycerides Arterial Blood Glucose Arterial Blood Ionized Calcium Crossmatch 01/01/21 01/01/21 01/01/21 17:58 17:58 20:12 WBC 26.9 H RBC 3.14 L Hgb 9.3 L Hct 29.6 L MCV MCHC RDW 17.5 H Plt Count Lymph % (Auto) [place] % (Auto) Lymph # (Auto) Seg Neutrophils % Seg Neuts % (Manual) 84.0 H Lymphocytes % (Manual) 4.0 L Monocytes % (Manual) 12.0 H Seg Neutrophils # Man 22.6 H Lymphocytes # (Manual) 1.1 L Monocytes # (Manual) 3.2 H PT INR ABG pH POC ABG pCO2 POC ABG pO2 ABG pO2 ABG HCO3 ABG O2 Saturation ABG Base Excess ABG Hemoglobin ABG Oxyhemoglobin ABG Sodium ABG Potassium ABG Chloride ABG Glucose Oxyhemoglobin Sodium 136 L Potassium 6.2 H* Chloride Carbon Dioxide 21 L BUN 92 H Creatinine 10.8 H Glucose 171 H POC Glucose 288 H Lactic Acid Calcium Phosphorus Magnesium Total Bilirubin 2.10 H AST 223 H ALT 100 H Alkaline Phosphatase 206 H Total Protein 4.8 L Albumin 1.9 L Triglycerides Arterial Blood Glucose Arterial Blood Ionized Calcium Crossmatch 01/02/21 01/02/21 01/02/21 00:12 00:45 03:05 WBC RBC Hgb Hct MCV MCHC RDW Plt Count Lymph % (Auto) [place] % (Auto) Lymph # (Auto) Seg Neutrophils % Seg Neuts % (Manual) Lymphocytes % (Manual) Monocytes % (Manual) Seg Neutrophils # Man Lymphocytes # (Manual) Monocytes # (Manual) PT INR ABG pH POC ABG pCO2 POC ABG pO2 81.8 L ABG pO2 ABG HCO3 ABG O2 Saturation ABG Base Excess ABG Hemoglobin 8.0 L ABG Oxyhemoglobin ABG Sodium 129.8 L ABG Potassium 5.4 H ABG Chloride ABG Glucose 257 H Oxyhemoglobin Sodium 136 L Potassium 5.8 H Chloride 96.6 L Carbon Dioxide BUN 95 H Creatinine 11.2 H Glucose 238 H POC Glucose 223 H Lactic Acid Calcium Phosphorus Magnesium Total Bilirubin AST ALT Alkaline Phosphatase Total Protein Albumin Triglycerides Arterial Blood Glucose 257 H Arterial Blood Ionized Calcium 4.0 L Crossmatch 01/02/21 01/02/21 01/02/21 06:25 08:00 08:00 WBC 17.5 H RBC 2.31 L Hgb 6.7 L Hct 22.1 L D MCV 96 H MCHC 30 L RDW 18.4 H Plt Count Lymph % (Auto) [place] % (Auto) Lymph # (Auto) Seg Neutrophils % Seg Neuts % (Manual) Lymphocytes % (Manual) Monocytes % (Manual) Seg Neutrophils # Man Lymphocytes # (Manual) Monocytes # (Manual) PT INR ABG pH POC ABG pCO2 POC ABG pO2 ABG pO2 ABG HCO3 ABG O2 Saturation ABG Base Excess ABG Hemoglobin ABG Oxyhemoglobin ABG Sodium ABG Potassium ABG Chloride ABG Glucose Oxyhemoglobin Sodium 134 L Potassium 5.3 H Chloride 92.9 L Carbon Dioxide BUN 101 H Creatinine 10.9 H Glucose 560 H* POC Glucose 239 H Lactic Acid Calcium 7.6 L Phosphorus 6.50 H Magnesium Total Bilirubin AST ALT Alkaline Phosphatase Total Protein Albumin Triglycerides Arterial Blood Glucose Arterial Blood Ionized Calcium Crossmatch 01/02/21 01/02/21 01/02/21 11:26 15:00 17:57 WBC RBC Hgb Hct MCV MCHC RDW Plt Count Lymph % (Auto) [place] % (Auto) Lymph # (Auto) Seg Neutrophils % Seg Neuts % (Manual) Lymphocytes % (Manual) Monocytes % (Manual) Seg Neutrophils # Man Lymphocytes # (Manual) Monocytes # (Manual) PT INR ABG pH POC ABG pCO2 POC ABG pO2 ABG pO2 ABG HCO3 ABG O2 Saturation ABG Base Excess ABG Hemoglobin ABG Oxyhemoglobin ABG Sodium ABG Potassium ABG Chloride ABG Glucose Oxyhemoglobin Sodium Potassium Chloride Carbon Dioxide BUN Creatinine Glucose 241 H POC Glucose 205 H 272 H Lactic Acid Calcium Phosphorus Magnesium Total Bilirubin AST ALT Alkaline Phosphatase Total Protein Albumin Triglycerides Arterial Blood Glucose Arterial Blood Ionized Calcium Crossmatch 01/02/21 01/02/21 01/03/21 23:25 23:43 03:45 WBC RBC Hgb Hct MCV MCHC RDW Plt Count Lymph % (Auto) [place] % (Auto) Lymph # (Auto) Seg Neutrophils % Seg Neuts % (Manual) Lymphocytes % (Manual) Monocytes % (Manual) Seg Neutrophils # Man Lymphocytes # (Manual) Monocytes # (Manual) PT INR ABG pH POC ABG pCO2 48.3 H POC ABG pO2 134.4 H 79.7 L ABG pO2 ABG HCO3 ABG O2 Saturation ABG Base Excess ABG Hemoglobin 7.7 L 8.6 L ABG Oxyhemoglobin ABG Sodium 131.8 L 130.4 L ABG Potassium ABG Chloride 97.0 L ABG Glucose 218 H 238 H Oxyhemoglobin Sodium Potassium Chloride Carbon Dioxide BUN Creatinine Glucose POC Glucose 218 H Lactic Acid Calcium Phosphorus Magnesium Total Bilirubin AST ALT Alkaline Phosphatase Total Protein Albumin Triglycerides Arterial Blood Glucose 218 H 238 H Arterial Blood Ionized Calcium 4.1 L 4.0 L Crossmatch 01/03/21 01/03/21 01/03/21 04:37 04:37 05:39 WBC 15.2 H RBC 2.38 L Hgb 7.3 L Hct 21.6 L MCV MCHC RDW 16.6 H Plt Count Lymph % (Auto) [place] % (Auto) Lymph # (Auto) Seg Neutrophils % Seg Neuts % (Manual) Lymphocytes % (Manual) Monocytes % (Manual) Seg Neutrophils # Man Lymphocytes # (Manual) Monocytes # (Manual) PT INR ABG pH POC ABG pCO2 POC ABG pO2 ABG pO2 ABG HCO3 ABG O2 Saturation ABG Base Excess ABG Hemoglobin ABG Oxyhemoglobin ABG Sodium ABG Potassium ABG Chloride ABG Glucose Oxyhemoglobin Sodium 136 L Potassium Chloride 94.5 L Carbon Dioxide BUN 69 H Creatinine 8.0 H Glucose 219 H POC Glucose 222 H Lactic Acid Calcium 7.8 L Phosphorus 4.80 H D Magnesium Total Bilirubin AST ALT Alkaline Phosphatase Total Protein Albumin Triglycerides Arterial Blood Glucose Arterial Blood Ionized Calcium Crossmatch 01/03/21 01/03/21 01/03/21 11:29 18:49 23:37 WBC RBC Hgb Hct MCV MCHC RDW Plt Count Lymph % (Auto) [place] % (Auto) Lymph # (Auto) Seg Neutrophils % Seg Neuts % (Manual) Lymphocytes % (Manual) Monocytes % (Manual) Seg Neutrophils # Man Lymphocytes # (Manual) Monocytes # (Manual) PT INR ABG pH POC ABG pCO2 POC ABG pO2 ABG pO2 ABG HCO3 ABG O2 Saturation ABG Base Excess ABG Hemoglobin ABG Oxyhemoglobin ABG Sodium ABG Potassium ABG Chloride ABG Glucose Oxyhemoglobin Sodium Potassium Chloride Carbon Dioxide BUN Creatinine Glucose POC Glucose 232 H 129 H 140 H Lactic Acid Calcium Phosphorus Magnesium Total Bilirubin AST ALT Alkaline Phosphatase Total Protein Albumin Triglycerides Arterial Blood Glucose Arterial Blood Ionized Calcium Crossmatch 01/04/21 01/04/21 01/04/21 03:22 04:38 04:38 WBC 11.1 H RBC 2.89 L Hgb 8.9 L Hct 26.2 L MCV MCHC RDW 16.1 H Plt Count Lymph % (Auto) [place] % (Auto) Lymph # (Auto) Seg Neutrophils % Seg Neuts % (Manual) Lymphocytes % (Manual) Monocytes % (Manual) Seg Neutrophils # Man Lymphocytes # (Manual) Monocytes # (Manual) PT INR ABG pH POC ABG pCO2 POC ABG pO2 82.3 L ABG pO2 ABG HCO3 ABG O2 Saturation ABG Base Excess ABG Hemoglobin 8.9 L ABG Oxyhemoglobin ABG Sodium 130.5 L ABG Potassium ABG Chloride ABG Glucose 124 H Oxyhemoglobin Sodium Potassium Chloride 95.5 L Carbon Dioxide BUN 87 H Creatinine 9.7 H Glucose 118 H POC Glucose Lactic Acid Calcium 7.7 L Phosphorus Magnesium Total Bilirubin AST ALT Alkaline Phosphatase Total Protein Albumin Triglycerides Arterial Blood Glucose 124 H Arterial Blood Ionized Calcium 3.5 L Crossmatch 01/04/21 01/04/21 01/04/21 05:39 12:04 18:04 WBC RBC Hgb Hct MCV MCHC RDW Plt Count Lymph % (Auto) [place] % (Auto) Lymph # (Auto) Seg Neutrophils % Seg Neuts % (Manual) Lymphocytes % (Manual) Monocytes % (Manual) Seg Neutrophils # Man Lymphocytes # (Manual) Monocytes # (Manual) PT INR ABG pH POC ABG pCO2 POC ABG pO2 ABG pO2 ABG HCO3 ABG O2 Saturation ABG Base Excess ABG Hemoglobin ABG Oxyhemoglobin ABG Sodium ABG Potassium ABG Chloride ABG Glucose Oxyhemoglobin Sodium Potassium Chloride Carbon Dioxide BUN Creatinine Glucose POC Glucose 134 H 125 H 131 H Lactic Acid Calcium Phosphorus Magnesium Total Bilirubin AST ALT Alkaline Phosphatase Total Protein Albumin Triglycerides Arterial Blood Glucose Arterial Blood Ionized Calcium Crossmatch 01/04/21 01/05/21 01/05/21 23:41 03:23 04:49 WBC RBC Hgb Hct MCV MCHC RDW Plt Count Lymph % (Auto) [place] % (Auto) Lymph # (Auto) Seg Neutrophils % Seg Neuts % (Manual) Lymphocytes % (Manual) Monocytes % (Manual) Seg Neutrophils # Man Lymphocytes # (Manual) Monocytes # (Manual) PT INR ABG pH POC ABG pCO2 POC ABG pO2 62.8 L ABG pO2 ABG HCO3 ABG O2 Saturation ABG Base Excess ABG Hemoglobin 9.5 L ABG Oxyhemoglobin 92.0 L ABG Sodium 130.1 L ABG Potassium ABG Chloride ABG Glucose 148 H Oxyhemoglobin Sodium Potassium Chloride 96.9 L Carbon Dioxide BUN 57 H Creatinine 6.7 H Glucose 135 H POC Glucose 132 H Lactic Acid Calcium 8.0 L Phosphorus Magnesium Total Bilirubin AST ALT Alkaline Phosphatase Total Protein Albumin Triglycerides Arterial Blood Glucose 148 H Arterial Blood Ionized Calcium 4.1 L Crossmatch 01/05/21 01/05/21 01/05/21 05:04 11:48 12:39 WBC RBC 3.03 L Hgb 9.3 L Hct 27.6 L MCV MCHC RDW 16.5 H Plt Count Lymph % (Auto) [place] % (Auto) Lymph # (Auto) Seg Neutrophils % Seg Neuts % (Manual) Lymphocytes % (Manual) Monocytes % (Manual) Seg Neutrophils # Man Lymphocytes # (Manual) Monocytes # (Manual) PT INR ABG pH POC ABG pCO2 POC ABG pO2 ABG pO2 ABG HCO3 ABG O2 Saturation ABG Base Excess ABG Hemoglobin ABG Oxyhemoglobin ABG Sodium ABG Potassium ABG Chloride ABG Glucose Oxyhemoglobin Sodium Potassium Chloride Carbon Dioxide BUN Creatinine Glucose POC Glucose 147 H 162 H Lactic Acid Calcium Phosphorus Magnesium Total Bilirubin AST ALT Alkaline Phosphatase Total Protein Albumin Triglycerides Arterial Blood Glucose Arterial Blood Ionized Calcium Crossmatch 01/05/21 01/05/21 01/06/21 17:50 23:32 04:15 WBC RBC Hgb Hct MCV MCHC RDW Plt Count Lymph % (Auto) [place] % (Auto) Lymph # (Auto) Seg Neutrophils % Seg Neuts % (Manual) Lymphocytes % (Manual) Monocytes % (Manual) Seg Neutrophils # Man Lymphocytes # (Manual) Monocytes # (Manual) PT INR ABG pH POC ABG pCO2 POC ABG pO2 ABG pO2 191.0 H ABG HCO3 ABG O2 Saturation 99.2 H ABG Base Excess ABG Hemoglobin 9.0 L ABG Oxyhemoglobin ABG Sodium ABG Potassium ABG Chloride ABG Glucose Oxyhemoglobin Sodium Potassium Chloride Carbon Dioxide BUN Creatinine Glucose POC Glucose 155 H 115 H Lactic Acid Calcium Phosphorus Magnesium Total Bilirubin AST ALT Alkaline Phosphatase Total Protein Albumin Triglycerides Arterial Blood Glucose Arterial Blood Ionized Calcium Crossmatch 01/06/21 01/06/21 01/06/21 04:45 05:56 07:03 WBC RBC 2.95 L Hgb 9.1 L Hct 26.8 L MCV MCHC RDW 16.8 H Plt Count Lymph % (Auto) [place] % (Auto) Lymph # (Auto) Seg Neutrophils % Seg Neuts % (Manual) Lymphocytes % (Manual) Monocytes % (Manual) Seg Neutrophils # Man Lymphocytes # (Manual) Monocytes # (Manual) PT INR ABG pH POC ABG pCO2 POC ABG pO2 ABG pO2 ABG HCO3 ABG O2 Saturation ABG Base Excess ABG Hemoglobin ABG Oxyhemoglobin ABG Sodium ABG Potassium ABG Chloride ABG Glucose Oxyhemoglobin Sodium 135 L Potassium Chloride 95.9 L Carbon Dioxide BUN 82 H Creatinine 8.7 H Glucose 127 H POC Glucose 136 H Lactic Acid Calcium 8.3 L Phosphorus Magnesium Total Bilirubin AST ALT Alkaline Phosphatase Total Protein Albumin Triglycerides Arterial Blood Glucose Arterial Blood Ionized Calcium Crossmatch 01/06/21 07:10 WBC RBC Hgb Hct MCV MCHC RDW Plt Count Lymph % (Auto) [place] % (Auto) Lymph # (Auto) Seg Neutrophils % Seg Neuts % (Manual) Lymphocytes % (Manual) Monocytes % (Manual) Seg Neutrophils # Man Lymphocytes # (Manual) Monocytes # (Manual) PT INR ABG pH POC ABG pCO2 POC ABG pO2 ABG pO2 ABG HCO3 ABG O2 Saturation ABG Base Excess ABG Hemoglobin ABG Oxyhemoglobin ABG Sodium ABG Potassium ABG Chloride ABG Glucose Oxyhemoglobin Sodium Potassium Chloride Carbon Dioxide BUN Creatinine Glucose POC Glucose Lactic Acid Calcium Phosphorus Magnesium Total Bilirubin AST ALT Alkaline Phosphatase Total Protein Albumin Triglycerides Arterial Blood Glucose Arterial Blood Ionized Calcium Crossmatch See Detail Chest x-ray: other (none today) Allied health notes reviewed: nursing
--- NOTE | 2021-01-07 16:51 | Progress Note ---
Assessment and Plan Acute hypoxemic respiratory failure, on mechanical ventilatory support. Severe Sepsis Peritonitis Acute small-bowel obstruction with tissue necrosis. End-stage renal disease, on dialysis. Hypertension. Crohn's disease. Gastroesophageal reflux disease. Heart failure with reduced ejection fraction. Hyperkalemia. Anemia that is normocytic. Lactic acidosis. Oropharyngeal dysphagia - continue SBT - tentative extubation in am if passes SBT - continue total parenteral nutrition - wean vasopressors for target MAP > 65 mmHg - continue wound care per RN/WCN - continue care as below otherwise; - continue Daily SAT and SBT assessment as tolerated - continue to wean supplemental oxygen for target O2 sat's > 92% acutely - VAP bundle addressed - continue lung protective strategies - continue bronchodilators with pulmonary hygiene per RT - wean per pulmonary driven protocols otherwise - HD/UF per nephrology prescription for toxin and volume control - avoid nephrotoxins, renally dose all medications - continue accuchecks with glycemic control per SSI (While critically ill target blood glucose of 140-180 mg/dL; avoid hypoglycemia) - sedation prn for target RASS 0 to -1 - continue to avoid benzodiazepine's, reduce the possibility of delirium - complete AB's per ID rec's - prn analgesia per CPOT score - Maintenance of sleep-wake cycle, avoid delirium - enteral nutritional support at goal rate as tolerated (once cleared by surgeon) - G.I. & VTE prophylaxis - PT/OT/ROM exercises - continue mobility protocols for pressure ulcer prophylaxis - Monitor hemodynamics closely - continue other care per attending / other consultants - discharge planning ongoing concurrently .... Re-evaluate in am & prn CONDITION: CRITICAL PROGNOSIS: GUARDED CODE STATUS: FULL CODE The high probability of a clinically significant, sudden or life-threatening deterioration of the [respiratory, cardiovascular, GI & neurologic] system(s) required my full and direct attention, intervention and personal management. The aggregate critical care time was [33] minutes without overlap. Time includes spent on; [x] Data Review and interpretation [x] Patient assessment and monitoring of vital signs [x] Documentation [x] Medication orders and management Subjective Date of service: 01/07/21 Principal diagnosis: Ac hypoxemic resp failure; Severe Sepsis; Peritonitis; Acute SBO; ESRD; CHF Interval history: Patient is seen today for: Ac hypoxemic resp failure; Severe Sepsis; Peritonitis; Acute SBO; ESRD on Dialysis; HTN; Crohn's disease; HFrEF Seen and examined at bedside; 24hour events reviewed; nursing and respiratory care staff consulted; no adverse overnight events reported to me; resting in bed; now s/p jejuno-colonic anastomosis and closure of abdomen; on PSV trial and tolerating well so far Objective Vital Signs - 12hr 01/07/21 01/07/21 01/07/21 02:30 03:00 03:25 Temperature Pulse Rate 92 H 96 H 97 H Pulse Rate [ From Monitor] Respiratory 25 H 25 H Rate Blood Pressure 126/65 135/71 133/71 O2 Sat by Pulse 99 98 98 Oximetry 01/07/21 01/07/21 01/07/21 03:30 04:00 04:30 Temperature Pulse Rate 92 H 99 H 100 H Pulse Rate [ 102 H From Monitor] Respiratory 20 24 27 H Rate Blood Pressure 135/67 140/76 148/80 O2 Sat by Pulse 99 98 99 Oximetry 01/07/21 01/07/21 01/07/21 05:00 05:30 06:00 Temperature Pulse Rate 99 H 101 H 103 H Pulse Rate [ From Monitor] Respiratory 25 H 26 H 22 Rate Blood Pressure 140/72 142/75 135/80 O2 Sat by Pulse 98 99 100 Oximetry 01/07/21 01/07/21 01/07/21 06:30 07:00 07:30 Temperature Pulse Rate 93 H 98 H 99 H Pulse Rate [ From Monitor] Respiratory 22 26 H 27 H Rate Blood Pressure 126/64 124/68 130/68 O2 Sat by Pulse 99 100 100 Oximetry 01/07/21 01/07/21 01/07/21 08:00 08:30 09:00 Temperature 98.8 F Pulse Rate 98 H 99 H 103 H Pulse Rate [ 102 H From Monitor] Respiratory 26 H 25 H 27 H Rate Blood Pressure 131/68 136/73 135/75 O2 Sat by Pulse 99 100 100 Oximetry 01/07/21 01/07/21 01/07/21 09:10 09:30 10:00 Temperature Pulse Rate 105 H 106 H 100 H Pulse Rate [ From Monitor] Respiratory 30 H 34 H 27 H Rate Blood Pressure 167/74 133/67 124/65 O2 Sat by Pulse 96 99 Oximetry 01/07/21 01/07/21 01/07/21 10:30 11:00 11:26 Temperature Pulse Rate 93 H 92 H Pulse Rate [ 102 H From Monitor] Respiratory 25 H 26 H 24 Rate Blood Pressure 119/60 130/63 O2 Sat by Pulse 98 100 100 Oximetry 01/07/21 01/07/21 01/07/21 11:28 11:30 12:00 Temperature Pulse Rate 92 H 91 H 94 H Pulse Rate [ From Monitor] Respiratory 27 H 16 Rate Blood Pressure 130/70 144/71 O2 Sat by Pulse 100 99 Oximetry 01/07/21 01/07/21 01/07/21 12:30 12:48 13:00 Temperature Pulse Rate 93 H 93 H 94 H Pulse Rate [ From Monitor] Respiratory 25 H 23 22 Rate Blood Pressure 146/74 146/74 150/71 O2 Sat by Pulse 99 99 99 Oximetry Constitutional: no acute distress, other (elderly male with milldy increased respiratory effort on MVS) Eyes: non-icteric ENT: oropharynx moist, other (ETT 24 cm LEEANN) Neck: supple, no lymphadenopathy, no JVD Effort: normal Ascultation: Bilateral: diminished breath sounds, rhonchi (scant, bases) Percussion: Bilateral: not dull Cardiovascular: regular rate and rhythm Gastrointestinal: hypoactive bowel sounds, soft, non-tender, non-distended (protuberant), other (Midline abdominal incision ) Integumentary: other (Midline abdominal incision ) Extremities: no cyanosis, no edema, pulses normal, no ischemia or petechiae Neurologic: non-focal exam (grossly), pupils equal and round, CN II-XII normal, motor strength normal and (sedated) Psychiatric: mood appropriate, affect normal CBC and BMP: 01/07/21 08:37 01/07/21 04:50 ABG, PT/INR, D-dimer: ABG ABG pH 7.356 (7.320-7.450) 01/07/21 03:07 POC ABG pCO2 41.4 mmHg (32.0-48.0) 01/07/21 03:07 ABG pCO2 44.0 mm Hg 01/06/21 04:15 POC ABG pO2 94.5 mmHg (83-108) 01/07/21 03:07 ABG pO2 191.0 mm Hg (80.0-90.0) H 01/06/21 04:15 POC ABG HCO3 22.7 01/07/21 03:07 ABG O2 Saturation 97.6 (0-100) 01/07/21 03:07 PT/INR, D-dimer PT 16.9 Sec. (12.2-14.9) H 01/01/21 12:45 INR 1.39 (0.87-1.13) H 01/01/21 12:45 Abnormal lab findings: Abnormal Labs 12/22/20 12/22/20 12/22/20 14:38 14:38 14:38 WBC RBC Hgb 11.2 L Hct 35.0 L MCV MCHC RDW 16.7 H Plt Count Lymph % (Auto) [place] % (Auto) Lymph # (Auto) [place] # (Auto) Seg Neutrophils % Seg Neuts % (Manual) 94.0 H Lymphocytes % (Manual) 5.0 L Monocytes % (Manual) Seg Neutrophils # Seg Neutrophils # Man Lymphocytes # (Manual) 0.3 L Monocytes # (Manual) PT INR ABG pH POC ABG pCO2 POC ABG pO2 ABG pO2 ABG HCO3 ABG O2 Saturation ABG Base Excess ABG Hemoglobin ABG Oxyhemoglobin ABG Sodium ABG Potassium ABG Chloride ABG Glucose Oxyhemoglobin Sodium Potassium Chloride Carbon Dioxide BUN 58 H Creatinine 13.2 H Glucose 113 H POC Glucose Lactic Acid 3.60 H* Calcium Phosphorus Magnesium Total Bilirubin 1.30 H AST ALT Alkaline Phosphatase 155 H Total Protein Albumin Triglycerides Arterial Blood Glucose Arterial Blood Ionized Calcium Crossmatch 12/22/20 12/22/20 12/23/20 16:26 17:47 05:22 WBC RBC Hgb Hct MCV MCHC RDW Plt Count Lymph % (Auto) [place] % (Auto) Lymph # (Auto) [place] # (Auto) Seg Neutrophils % Seg Neuts % (Manual) Lymphocytes % (Manual) Monocytes % (Manual) Seg Neutrophils # Seg Neutrophils # Man Lymphocytes # (Manual) Monocytes # (Manual) PT INR ABG pH POC ABG pCO2 POC ABG pO2 ABG pO2 ABG HCO3 ABG O2 Saturation ABG Base Excess ABG Hemoglobin ABG Oxyhemoglobin ABG Sodium ABG Potassium ABG Chloride ABG Glucose Oxyhemoglobin Sodium Potassium Chloride Carbon Dioxide BUN Creatinine Glucose POC Glucose Lactic Acid 2.80 H* 3.10 H* 2.30 H* Calcium Phosphorus Magnesium Total Bilirubin AST ALT Alkaline Phosphatase Total Protein Albumin Triglycerides Arterial Blood Glucose Arterial Blood Ionized Calcium Crossmatch 12/23/20 12/23/20 12/23/20 05:22 05:22 06:35 WBC 12.1 H RBC Hgb 11.0 L Hct 33.7 L MCV MCHC RDW 16.9 H Plt Count Lymph % (Auto) [place] % (Auto) Lymph # (Auto) [place] # (Auto) Seg Neutrophils % Seg Neuts % (Manual) 93.0 H Lymphocytes % (Manual) 1.0 L Monocytes % (Manual) Seg Neutrophils # Seg Neutrophils # Man 11.3 H Lymphocytes # (Manual) 0.1 L Monocytes # (Manual) PT INR ABG pH POC ABG pCO2 POC ABG pO2 ABG pO2 ABG HCO3 ABG O2 Saturation ABG Base Excess ABG Hemoglobin ABG Oxyhemoglobin ABG Sodium ABG Potassium ABG Chloride ABG Glucose Oxyhemoglobin Sodium Potassium 5.7 H D Chloride Carbon Dioxide BUN 73 H Creatinine 14.2 H Glucose POC Glucose Lactic Acid 2.30 H* Calcium 7.9 L Phosphorus Magnesium Total Bilirubin 1.40 H AST 119 H ALT 130 H Alkaline Phosphatase 183 H Total Protein 6.1 L Albumin 3.6 L Triglycerides Arterial Blood Glucose Arterial Blood Ionized Calcium Crossmatch 12/23/20 12/23/20 12/23/20 11:40 13:53 16:47 WBC RBC Hgb 10.0 L Hct 30.4 L MCV MCHC RDW Plt Count Lymph % (Auto) [place] % (Auto) Lymph # (Auto) [place] # (Auto) Seg Neutrophils % Seg Neuts % (Manual) Lymphocytes % (Manual) Monocytes % (Manual) Seg Neutrophils # Seg Neutrophils # Man Lymphocytes # (Manual) Monocytes # (Manual) PT INR ABG pH POC ABG pCO2 POC ABG pO2 137.5 H ABG pO2 ABG HCO3 ABG O2 Saturation ABG Base Excess ABG Hemoglobin 9.7 L ABG Oxyhemoglobin ABG Sodium 134.1 L ABG Potassium 6.6 H ABG Chloride ABG Glucose 103 H Oxyhemoglobin Sodium Potassium Chloride Carbon Dioxide BUN Creatinine Glucose POC Glucose Lactic Acid Calcium Phosphorus Magnesium Total Bilirubin AST ALT Alkaline Phosphatase Total Protein Albumin Triglycerides Arterial Blood Glucose 103 H Arterial Blood Ionized Calcium 3.8 L Crossmatch See Detail 12/23/20 12/23/20 12/24/20 20:35 20:40 01:20 WBC RBC Hgb Hct MCV MCHC RDW Plt Count Lymph % (Auto) [place] % (Auto) Lymph # (Auto) [place] # (Auto) Seg Neutrophils % Seg Neuts % (Manual) Lymphocytes % (Manual) Monocytes % (Manual) Seg Neutrophils # Seg Neutrophils # Man Lymphocytes # (Manual) Monocytes # (Manual) PT INR ABG pH 7.252 L POC ABG pCO2 POC ABG pO2 ABG pO2 50.1 L ABG HCO3 ABG O2 Saturation 81.1 L ABG Base Excess -5.9 L ABG Hemoglobin 12.1 L ABG Oxyhemoglobin ABG Sodium ABG Potassium ABG Chloride ABG Glucose Oxyhemoglobin 78.6 L Sodium 134 L Potassium 6.9 H* D 6.3 H* Chloride Carbon Dioxide 18 L 20 L BUN 87 H 91 H Creatinine 15.3 H 15.3 H Glucose 103 H POC Glucose Lactic Acid Calcium 6.9 L 7.5 L Phosphorus Magnesium Total Bilirubin AST ALT Alkaline Phosphatase Total Protein Albumin Triglycerides Arterial Blood Glucose Arterial Blood Ionized Calcium Crossmatch 12/24/20 12/24/20 12/24/20 04:00 10:29 10:29 WBC RBC 3.49 L Hgb 10.5 L Hct 31.2 L MCV MCHC RDW 17.5 H Plt Count 124 L Lymph % (Auto) 3.7 L [place] % (Auto) 9.8 H Lymph # (Auto) 0.2 L [place] # (Auto) Seg Neutrophils % 85.9 H Seg Neuts % (Manual) Lymphocytes % (Manual) Monocytes % (Manual) Seg Neutrophils # Seg Neutrophils # Man Lymphocytes # (Manual) Monocytes # (Manual) PT INR ABG pH POC ABG pCO2 28.1 L POC ABG pO2 ABG pO2 ABG HCO3 ABG O2 Saturation ABG Base Excess ABG Hemoglobin ABG Oxyhemoglobin ABG Sodium 133.9 L ABG Potassium 5.3 H ABG Chloride 108.0 H ABG Glucose Oxyhemoglobin Sodium Potassium 5.6 H Chloride Carbon Dioxide 19 L BUN 99 H Creatinine 16.9 H Glucose 52 L POC Glucose Lactic Acid Calcium 7.6 L Phosphorus Magnesium Total Bilirubin 3.50 H AST 67 H ALT 71 H Alkaline Phosphatase Total Protein 3.5 L D Albumin 2.1 L Triglycerides Arterial Blood Glucose Arterial Blood Ionized Calcium 4.0 L Crossmatch 12/25/20 12/25/20 12/25/20 03:33 04:00 04:00 WBC 3.8 L RBC 2.90 L Hgb 8.6 L Hct 25.7 L MCV MCHC RDW 16.7 H Plt Count 113 L Lymph % (Auto) [place] % (Auto) Lymph # (Auto) [place] # (Auto) Seg Neutrophils % Seg Neuts % (Manual) Lymphocytes % (Manual) Monocytes % (Manual) Seg Neutrophils # Seg Neutrophils # Man Lymphocytes # (Manual) Monocytes # (Manual) PT INR ABG pH 7.544 H POC ABG pCO2 28.2 L POC ABG pO2 62.8 L ABG pO2 ABG HCO3 ABG O2 Saturation ABG Base Excess ABG Hemoglobin 9.3 L ABG Oxyhemoglobin 93.0 L ABG Sodium 130.3 L ABG Potassium ABG Chloride ABG Glucose 97 H Oxyhemoglobin Sodium Potassium Chloride Carbon Dioxide BUN 62 H Creatinine 11.4 H Glucose POC Glucose Lactic Acid Calcium 7.7 L Phosphorus 5.00 H Magnesium Total Bilirubin AST ALT Alkaline Phosphatase Total Protein Albumin Triglycerides Arterial Blood Glucose 97 H Arterial Blood Ionized Calcium 3.9 L Crossmatch 12/26/20 12/26/20 12/27/20 04:46 Unknown 03:40 WBC 4.1 L RBC 2.61 L Hgb 7.8 L Hct 23.4 L MCV MCHC RDW 17.1 H Plt Count 119 L Lymph % (Auto) 5.3 L [place] % (Auto) 10.6 H Lymph # (Auto) 0.2 L [place] # (Auto) Seg Neutrophils % 78.8 H Seg Neuts % (Manual) Lymphocytes % (Manual) Monocytes % (Manual) Seg Neutrophils # Seg Neutrophils # Man Lymphocytes # (Manual) Monocytes # (Manual) PT INR ABG pH 7.333 L 7.332 L POC ABG pCO2 POC ABG pO2 ABG pO2 ABG HCO3 26.9 H ABG O2 Saturation ABG Base Excess -2.4 L ABG Hemoglobin 6.8 L 7.2 L ABG Oxyhemoglobin ABG Sodium ABG Potassium ABG Chloride ABG Glucose Oxyhemoglobin 93.0 L 93.1 L Sodium Potassium Chloride Carbon Dioxide BUN Creatinine Glucose POC Glucose Lactic Acid Calcium Phosphorus Magnesium Total Bilirubin AST ALT Alkaline Phosphatase Total Protein Albumin Triglycerides Arterial Blood Glucose Arterial Blood Ionized Calcium Crossmatch 12/27/20 12/27/20 12/27/20 06:40 06:40 11:22 WBC 4.4 L RBC 2.49 L Hgb 7.4 L Hct 22.4 L MCV MCHC RDW 17.1 H Plt Count 111 L Lymph % (Auto) 6.7 L [place] % (Auto) 12.6 H Lymph # (Auto) 0.3 L [place] # (Auto) Seg Neutrophils % 77.6 H Seg Neuts % (Manual) Lymphocytes % (Manual) Monocytes % (Manual) Seg Neutrophils # Seg Neutrophils # Man Lymphocytes # (Manual) Monocytes # (Manual) PT INR ABG pH POC ABG pCO2 POC ABG pO2 ABG pO2 ABG HCO3 ABG O2 Saturation ABG Base Excess ABG Hemoglobin ABG Oxyhemoglobin ABG Sodium ABG Potassium ABG Chloride ABG Glucose Oxyhemoglobin Sodium Potassium Chloride Carbon Dioxide BUN 64 H Creatinine 9.8 H Glucose 147 H POC Glucose 134 H Lactic Acid Calcium 8.3 L Phosphorus 5.00 H Magnesium Total Bilirubin 3.70 H AST 72 H ALT Alkaline Phosphatase 142 H Total Protein 5.1 L D Albumin 2.9 L Triglycerides Arterial Blood Glucose Arterial Blood Ionized Calcium Crossmatch 12/27/20 12/27/20 12/28/20 17:29 23:31 03:09 WBC RBC Hgb Hct MCV MCHC RDW Plt Count Lymph % (Auto) [place] % (Auto) Lymph # (Auto) [place] # (Auto) Seg Neutrophils % Seg Neuts % (Manual) Lymphocytes % (Manual) Monocytes % (Manual) Seg Neutrophils # Seg Neutrophils # Man Lymphocytes # (Manual) Monocytes # (Manual) PT INR ABG pH 7.474 H POC ABG pCO2 POC ABG pO2 ABG pO2 ABG HCO3 ABG O2 Saturation ABG Base Excess ABG Hemoglobin 7.8 L ABG Oxyhemoglobin ABG Sodium ABG Potassium ABG Chloride ABG Glucose Oxyhemoglobin Sodium Potassium Chloride Carbon Dioxide BUN Creatinine Glucose POC Glucose 121 H 131 H Lactic Acid Calcium Phosphorus Magnesium Total Bilirubin AST ALT Alkaline Phosphatase Total Protein Albumin Triglycerides Arterial Blood Glucose Arterial Blood Ionized Calcium Crossmatch 12/28/20 12/28/20 12/28/20 05:37 05:40 05:40 WBC 4.3 L RBC 2.40 L Hgb 7.2 L Hct 21.5 L MCV MCHC RDW 17.4 H Plt Count 112 L Lymph % (Auto) 6.5 L [place] % (Auto) 16.7 H Lymph # (Auto) 0.3 L [place] # (Auto) Seg Neutrophils % 71.1 H Seg Neuts % (Manual) Lymphocytes % (Manual) Monocytes % (Manual) Seg Neutrophils # Seg Neutrophils # Man Lymphocytes # (Manual) Monocytes # (Manual) PT INR ABG pH POC ABG pCO2 POC ABG pO2 ABG pO2 ABG HCO3 ABG O2 Saturation ABG Base Excess ABG Hemoglobin ABG Oxyhemoglobin ABG Sodium ABG Potassium ABG Chloride ABG Glucose Oxyhemoglobin Sodium Potassium Chloride Carbon Dioxide BUN 85 H Creatinine 11.5 H Glucose 132 H POC Glucose 121 H Lactic Acid Calcium 8.2 L Phosphorus Magnesium 2.40 H Total Bilirubin 3.80 H AST 70 H ALT Alkaline Phosphatase 176 H Total Protein 5.0 L Albumin 2.9 L Triglycerides Arterial Blood Glucose Arterial Blood Ionized Calcium Crossmatch 12/28/20 12/28/20 12/28/20 11:34 15:00 17:35 WBC RBC Hgb Hct MCV MCHC RDW Plt Count Lymph % (Auto) [place] % (Auto) Lymph # (Auto) [place] # (Auto) Seg Neutrophils % Seg Neuts % (Manual) Lymphocytes % (Manual) Monocytes % (Manual) Seg Neutrophils # Seg Neutrophils # Man Lymphocytes # (Manual) Monocytes # (Manual) PT INR ABG pH 7.461 H POC ABG pCO2 POC ABG pO2 72.2 L ABG pO2 ABG HCO3 ABG O2 Saturation ABG Base Excess ABG Hemoglobin 8.2 L ABG Oxyhemoglobin 93.6 L ABG Sodium 134.1 L ABG Potassium 3.2 L ABG Chloride ABG Glucose 135 H Oxyhemoglobin Sodium Potassium Chloride Carbon Dioxide BUN Creatinine Glucose POC Glucose 137 H 144 H Lactic Acid Calcium Phosphorus Magnesium Total Bilirubin AST ALT Alkaline Phosphatase Total Protein Albumin Triglycerides Arterial Blood Glucose 135 H Arterial Blood Ionized Calcium 4.4 L Crossmatch 12/28/20 12/28/20 12/29/20 19:44 Unknown 00:21 WBC RBC Hgb Hct MCV MCHC RDW Plt Count Lymph % (Auto) [place] % (Auto) Lymph # (Auto) [place] # (Auto) Seg Neutrophils % Seg Neuts % (Manual) Lymphocytes % (Manual) Monocytes % (Manual) Seg Neutrophils # Seg Neutrophils # Man Lymphocytes # (Manual) Monocytes # (Manual) PT INR ABG pH 7.474 H POC ABG pCO2 POC ABG pO2 ABG pO2 ABG HCO3 ABG O2 Saturation ABG Base Excess ABG Hemoglobin 7.8 L ABG Oxyhemoglobin ABG Sodium 133.2 L ABG Potassium ABG Chloride ABG Glucose 139 H Oxyhemoglobin Sodium 135 L Potassium Chloride 96.6 L Carbon Dioxide BUN 47 H Creatinine 7.4 H Glucose 130 H POC Glucose 142 H Lactic Acid Calcium 8.3 L Phosphorus Magnesium Total Bilirubin AST ALT Alkaline Phosphatase Total Protein Albumin Triglycerides Arterial Blood Glucose 139 H Arterial Blood Ionized Calcium 4.3 L Crossmatch 12/29/20 12/29/20 12/29/20 05:16 05:16 05:26 WBC RBC 2.53 L Hgb 7.7 L Hct 22.8 L MCV MCHC RDW 17.0 H Plt Count 130 L Lymph % (Auto) [place] % (Auto) Lymph # (Auto) [place] # (Auto) Seg Neutrophils % Seg Neuts % (Manual) 79.0 H Lymphocytes % (Manual) 9.0 L Monocytes % (Manual) Seg Neutrophils # Seg Neutrophils # Man Lymphocytes # (Manual) 0.6 L Monocytes # (Manual) PT INR ABG pH POC ABG pCO2 POC ABG pO2 ABG pO2 ABG HCO3 ABG O2 Saturation ABG Base Excess ABG Hemoglobin ABG Oxyhemoglobin ABG Sodium ABG Potassium ABG Chloride ABG Glucose Oxyhemoglobin Sodium Potassium 3.4 L Chloride 96.6 L Carbon Dioxide BUN 59 H Creatinine 8.3 H Glucose 127 H POC Glucose 141 H Lactic Acid Calcium 8.2 L Phosphorus Magnesium Total Bilirubin 3.00 H AST 88 H ALT Alkaline Phosphatase 188 H Total Protein 5.1 L Albumin 2.8 L Triglycerides Arterial Blood Glucose Arterial Blood Ionized Calcium Crossmatch 12/29/20 12/29/20 12/29/20 11:33 17:29 23:22 WBC RBC Hgb Hct MCV MCHC RDW Plt Count Lymph % (Auto) [place] % (Auto) Lymph # (Auto) [place] # (Auto) Seg Neutrophils % Seg Neuts % (Manual) Lymphocytes % (Manual) Monocytes % (Manual) Seg Neutrophils # Seg Neutrophils # Man Lymphocytes # (Manual) Monocytes # (Manual) PT INR ABG pH POC ABG pCO2 POC ABG pO2 ABG pO2 ABG HCO3 ABG O2 Saturation ABG Base Excess ABG Hemoglobin ABG Oxyhemoglobin ABG Sodium ABG Potassium ABG Chloride ABG Glucose Oxyhemoglobin Sodium Potassium Chloride Carbon Dioxide BUN Creatinine Glucose POC Glucose 144 H 130 H 117 H Lactic Acid Calcium Phosphorus Magnesium Total Bilirubin AST ALT Alkaline Phosphatase Total Protein Albumin Triglycerides Arterial Blood Glucose Arterial Blood Ionized Calcium Crossmatch 12/30/20 12/30/20 12/30/20 05:23 08:15 09:00 WBC RBC Hgb Hct MCV MCHC RDW Plt Count Lymph % (Auto) [place] % (Auto) Lymph # (Auto) [place] # (Auto) Seg Neutrophils % Seg Neuts % (Manual) Lymphocytes % (Manual) Monocytes % (Manual) Seg Neutrophils # Seg Neutrophils # Man Lymphocytes # (Manual) Monocytes # (Manual) PT INR ABG pH POC ABG pCO2 POC ABG pO2 ABG pO2 ABG HCO3 ABG O2 Saturation ABG Base Excess ABG Hemoglobin ABG Oxyhemoglobin ABG Sodium ABG Potassium ABG Chloride ABG Glucose Oxyhemoglobin Sodium 135 L Potassium Chloride 95.9 L Carbon Dioxide BUN 85 H Creatinine 10.6 H Glucose 128 H POC Glucose 135 H 127 H Lactic Acid Calcium 8.3 L Phosphorus Magnesium Total Bilirubin 2.40 H AST 85 H ALT Alkaline Phosphatase 216 H Total Protein 5.3 L Albumin 2.6 L Triglycerides 155 H Arterial Blood Glucose Arterial Blood Ionized Calcium Crossmatch 12/30/20 12/30/20 12/30/20 09:00 11:53 15:49 WBC RBC 2.61 L Hgb 7.8 L Hct 23.7 L MCV MCHC RDW 17.3 H Plt Count Lymph % (Auto) [place] % (Auto) Lymph # (Auto) [place] # (Auto) Seg Neutrophils % Seg Neuts % (Manual) Lymphocytes % (Manual) Monocytes % (Manual) Seg Neutrophils # Seg Neutrophils # Man Lymphocytes # (Manual) Monocytes # (Manual) PT INR ABG pH POC ABG pCO2 POC ABG pO2 ABG pO2 ABG HCO3 ABG O2 Saturation ABG Base Excess ABG Hemoglobin ABG Oxyhemoglobin ABG Sodium ABG Potassium ABG Chloride ABG Glucose Oxyhemoglobin Sodium Potassium Chloride Carbon Dioxide BUN Creatinine Glucose POC Glucose 155 H 146 H Lactic Acid Calcium Phosphorus Magnesium Total Bilirubin AST ALT Alkaline Phosphatase Total Protein Albumin Triglycerides Arterial Blood Glucose Arterial Blood Ionized Calcium Crossmatch 12/30/20 12/30/20 12/31/20 17:53 23:45 03:56 WBC RBC Hgb Hct MCV MCHC RDW Plt Count Lymph % (Auto) [place] % (Auto) Lymph # (Auto) [place] # (Auto) Seg Neutrophils % Seg Neuts % (Manual) Lymphocytes % (Manual) Monocytes % (Manual) Seg Neutrophils # Seg Neutrophils # Man Lymphocytes # (Manual) Monocytes # (Manual) PT INR ABG pH POC ABG pCO2 POC ABG pO2 49.4 L ABG pO2 ABG HCO3 ABG O2 Saturation ABG Base Excess ABG Hemoglobin 10.3 L ABG Oxyhemoglobin 84.2 L ABG Sodium 133.1 L ABG Potassium ABG Chloride ABG Glucose 173 H Oxyhemoglobin Sodium Potassium Chloride Carbon Dioxide BUN Creatinine Glucose POC Glucose 139 H 173 H Lactic Acid Calcium Phosphorus Magnesium Total Bilirubin AST ALT Alkaline Phosphatase Total Protein Albumin Triglycerides Arterial Blood Glucose 173 H Arterial Blood Ionized Calcium Crossmatch 12/31/20 12/31/20 12/31/20 05:07 06:51 06:51 WBC 20.3 H RBC 3.32 L Hgb 9.8 L Hct 30.3 L D MCV MCHC RDW 17.3 H Plt Count Lymph % (Auto) [place] % (Auto) Lymph # (Auto) [place] # (Auto) Seg Neutrophils % Seg Neuts % (Manual) 87.0 H Lymphocytes % (Manual) 10.0 L Monocytes % (Manual) Seg Neutrophils # Seg Neutrophils # Man 17.7 H Lymphocytes # (Manual) Monocytes # (Manual) PT INR ABG pH POC ABG pCO2 POC ABG pO2 ABG pO2 ABG HCO3 ABG O2 Saturation ABG Base Excess ABG Hemoglobin ABG Oxyhemoglobin ABG Sodium ABG Potassium ABG Chloride ABG Glucose Oxyhemoglobin Sodium Potassium 5.2 H D Chloride Carbon Dioxide BUN 62 H Creatinine 8.4 H Glucose 116 H POC Glucose 120 H Lactic Acid Calcium Phosphorus Magnesium 1.60 L Total Bilirubin AST ALT Alkaline Phosphatase Total Protein Albumin Triglycerides Arterial Blood Glucose Arterial Blood Ionized Calcium Crossmatch 12/31/20 12/31/20 12/31/20 09:38 12:19 12:22 WBC RBC Hgb Hct MCV MCHC RDW Plt Count Lymph % (Auto) [place] % (Auto) Lymph # (Auto) [place] # (Auto) Seg Neutrophils % Seg Neuts % (Manual) Lymphocytes % (Manual) Monocytes % (Manual) Seg Neutrophils # Seg Neutrophils # Man Lymphocytes # (Manual) Monocytes # (Manual) PT INR ABG pH POC ABG pCO2 POC ABG pO2 ABG pO2 354.0 H ABG HCO3 ABG O2 Saturation 99.6 H ABG Base Excess ABG Hemoglobin 9.1 L ABG Oxyhemoglobin ABG Sodium ABG Potassium ABG Chloride ABG Glucose Oxyhemoglobin Sodium Potassium 5.2 H Chloride Carbon Dioxide BUN Creatinine Glucose POC Glucose 132 H Lactic Acid Calcium Phosphorus Magnesium Total Bilirubin AST ALT Alkaline Phosphatase Total Protein Albumin Triglycerides Arterial Blood Glucose Arterial Blood Ionized Calcium Crossmatch 12/31/20 01/01/21 01/01/21 23:23 03:03 05:04 WBC RBC Hgb Hct MCV MCHC RDW Plt Count Lymph % (Auto) [place] % (Auto) Lymph # (Auto) [place] # (Auto) Seg Neutrophils % Seg Neuts % (Manual) Lymphocytes % (Manual) Monocytes % (Manual) Seg Neutrophils # Seg Neutrophils # Man Lymphocytes # (Manual) Monocytes # (Manual) PT INR ABG pH POC ABG pCO2 POC ABG pO2 79.6 L ABG pO2 ABG HCO3 ABG O2 Saturation ABG Base Excess ABG Hemoglobin 9.2 L ABG Oxyhemoglobin ABG Sodium 131.6 L ABG Potassium 5.8 H ABG Chloride ABG Glucose 177 H Oxyhemoglobin Sodium Potassium Chloride Carbon Dioxide BUN Creatinine Glucose POC Glucose 174 H 167 H Lactic Acid Calcium Phosphorus Magnesium Total Bilirubin AST ALT Alkaline Phosphatase Total Protein Albumin Triglycerides Arterial Blood Glucose 177 H Arterial Blood Ionized Calcium Crossmatch 01/01/21 01/01/21 01/01/21 07:31 07:31 11:31 WBC 26.1 H RBC 2.95 L Hgb 8.6 L Hct 27.1 L MCV MCHC RDW 18.2 H Plt Count Lymph % (Auto) [place] % (Auto) Lymph # (Auto) [place] # (Auto) Seg Neutrophils % Seg Neuts % (Manual) 96.0 H Lymphocytes % (Manual) 4.0 L Monocytes % (Manual) Seg Neutrophils # Seg Neutrophils # Man 25.1 H Lymphocytes # (Manual) 1.0 L Monocytes # (Manual) PT INR ABG pH POC ABG pCO2 POC ABG pO2 ABG pO2 ABG HCO3 ABG O2 Saturation ABG Base Excess ABG Hemoglobin ABG Oxyhemoglobin ABG Sodium ABG Potassium ABG Chloride ABG Glucose Oxyhemoglobin Sodium Potassium 6.0 H Chloride Carbon Dioxide 21 L BUN 89 H Creatinine 10.5 H Glucose 179 H POC Glucose Lactic Acid Calcium Phosphorus Magnesium Total Bilirubin AST ALT Alkaline Phosphatase Total Protein Albumin Triglycerides Arterial Blood Glucose Arterial Blood Ionized Calcium Crossmatch See Detail 01/01/21 01/01/21 01/01/21 11:51 12:45 16:52 WBC RBC Hgb Hct MCV MCHC RDW Plt Count Lymph % (Auto) [place] % (Auto) Lymph # (Auto) [place] # (Auto) Seg Neutrophils % Seg Neuts % (Manual) Lymphocytes % (Manual) Monocytes % (Manual) Seg Neutrophils # Seg Neutrophils # Man Lymphocytes # (Manual) Monocytes # (Manual) PT 16.9 H INR 1.39 H ABG pH POC ABG pCO2 POC ABG pO2 ABG pO2 ABG HCO3 ABG O2 Saturation ABG Base Excess ABG Hemoglobin ABG Oxyhemoglobin ABG Sodium ABG Potassium ABG Chloride ABG Glucose Oxyhemoglobin Sodium Potassium Chloride Carbon Dioxide BUN Creatinine Glucose POC Glucose 157 H 177 H Lactic Acid Calcium Phosphorus Magnesium Total Bilirubin AST ALT Alkaline Phosphatase Total Protein Albumin Triglycerides Arterial Blood Glucose Arterial Blood Ionized Calcium Crossmatch 01/01/21 01/01/21 01/01/21 17:58 17:58 20:12 WBC 26.9 H RBC 3.14 L Hgb 9.3 L Hct 29.6 L MCV MCHC RDW 17.5 H Plt Count Lymph % (Auto) [place] % (Auto) Lymph # (Auto) [place] # (Auto) Seg Neutrophils % Seg Neuts % (Manual) 84.0 H Lymphocytes % (Manual) 4.0 L Monocytes % (Manual) 12.0 H Seg Neutrophils # Seg Neutrophils # Man 22.6 H Lymphocytes # (Manual) 1.1 L Monocytes # (Manual) 3.2 H PT INR ABG pH POC ABG pCO2 POC ABG pO2 ABG pO2 ABG HCO3 ABG O2 Saturation ABG Base Excess ABG Hemoglobin ABG Oxyhemoglobin ABG Sodium ABG Potassium ABG Chloride ABG Glucose Oxyhemoglobin Sodium 136 L Potassium 6.2 H* Chloride Carbon Dioxide 21 L BUN 92 H Creatinine 10.8 H Glucose 171 H POC Glucose 288 H Lactic Acid Calcium Phosphorus Magnesium Total Bilirubin 2.10 H AST 223 H ALT 100 H Alkaline Phosphatase 206 H Total Protein 4.8 L Albumin 1.9 L Triglycerides Arterial Blood Glucose Arterial Blood Ionized Calcium Crossmatch 01/02/21 01/02/21 01/02/21 00:12 00:45 03:05 WBC RBC Hgb Hct MCV MCHC RDW Plt Count Lymph % (Auto) [place] % (Auto) Lymph # (Auto) [place] # (Auto) Seg Neutrophils % Seg Neuts % (Manual) Lymphocytes % (Manual) Monocytes % (Manual) Seg Neutrophils # Seg Neutrophils # Man Lymphocytes # (Manual) Monocytes # (Manual) PT INR ABG pH POC ABG pCO2 POC ABG pO2 81.8 L ABG pO2 ABG HCO3 ABG O2 Saturation ABG Base Excess ABG Hemoglobin 8.0 L ABG Oxyhemoglobin ABG Sodium 129.8 L ABG Potassium 5.4 H ABG Chloride ABG Glucose 257 H Oxyhemoglobin Sodium 136 L Potassium 5.8 H Chloride 96.6 L Carbon Dioxide BUN 95 H Creatinine 11.2 H Glucose 238 H POC Glucose 223 H Lactic Acid Calcium Phosphorus Magnesium Total Bilirubin AST ALT Alkaline Phosphatase Total Protein Albumin Triglycerides Arterial Blood Glucose 257 H Arterial Blood Ionized Calcium 4.0 L Crossmatch 01/02/21 01/02/21 01/02/21 06:25 08:00 08:00 WBC 17.5 H RBC 2.31 L Hgb 6.7 L Hct 22.1 L D MCV 96 H MCHC 30 L RDW 18.4 H Plt Count Lymph % (Auto) [place] % (Auto) Lymph # (Auto) [place] # (Auto) Seg Neutrophils % Seg Neuts % (Manual) Lymphocytes % (Manual) Monocytes % (Manual) Seg Neutrophils # Seg Neutrophils # Man Lymphocytes # (Manual) Monocytes # (Manual) PT INR ABG pH POC ABG pCO2 POC ABG pO2 ABG pO2 ABG HCO3 ABG O2 Saturation ABG Base Excess ABG Hemoglobin ABG Oxyhemoglobin ABG Sodium ABG Potassium ABG Chloride ABG Glucose Oxyhemoglobin Sodium 134 L Potassium 5.3 H Chloride 92.9 L Carbon Dioxide BUN 101 H Creatinine 10.9 H Glucose 560 H* POC Glucose 239 H Lactic Acid Calcium 7.6 L Phosphorus 6.50 H Magnesium Total Bilirubin AST ALT Alkaline Phosphatase Total Protein Albumin Triglycerides Arterial Blood Glucose Arterial Blood Ionized Calcium Crossmatch 01/02/21 01/02/21 01/02/21 11:26 15:00 17:57 WBC RBC Hgb Hct MCV MCHC RDW Plt Count Lymph % (Auto) [place] % (Auto) Lymph # (Auto) [place] # (Auto) Seg Neutrophils % Seg Neuts % (Manual) Lymphocytes % (Manual) Monocytes % (Manual) Seg Neutrophils # Seg Neutrophils # Man Lymphocytes # (Manual) Monocytes # (Manual) PT INR ABG pH POC ABG pCO2 POC ABG pO2 ABG pO2 ABG HCO3 ABG O2 Saturation ABG Base Excess ABG Hemoglobin ABG Oxyhemoglobin ABG Sodium ABG Potassium ABG Chloride ABG Glucose Oxyhemoglobin Sodium Potassium Chloride Carbon Dioxide BUN Creatinine Glucose 241 H POC Glucose 205 H 272 H Lactic Acid Calcium Phosphorus Magnesium Total Bilirubin AST ALT Alkaline Phosphatase Total Protein Albumin Triglycerides Arterial Blood Glucose Arterial Blood Ionized Calcium Crossmatch 01/02/21 01/02/21 01/03/21 23:25 23:43 03:45 WBC RBC Hgb Hct MCV MCHC RDW Plt Count Lymph % (Auto) [place] % (Auto) Lymph # (Auto) [place] # (Auto) Seg Neutrophils % Seg Neuts % (Manual) Lymphocytes % (Manual) Monocytes % (Manual) Seg Neutrophils # Seg Neutrophils # Man Lymphocytes # (Manual) Monocytes # (Manual) PT INR ABG pH POC ABG pCO2 48.3 H POC ABG pO2 134.4 H 79.7 L ABG pO2 ABG HCO3 ABG O2 Saturation ABG Base Excess ABG Hemoglobin 7.7 L 8.6 L ABG Oxyhemoglobin ABG Sodium 131.8 L 130.4 L ABG Potassium ABG Chloride 97.0 L ABG Glucose 218 H 238 H Oxyhemoglobin Sodium Potassium Chloride Carbon Dioxide BUN Creatinine Glucose POC Glucose 218 H Lactic Acid Calcium Phosphorus Magnesium Total Bilirubin AST ALT Alkaline Phosphatase Total Protein Albumin Triglycerides Arterial Blood Glucose 218 H 238 H Arterial Blood Ionized Calcium 4.1 L 4.0 L Crossmatch 01/03/21 01/03/21 01/03/21 04:37 04:37 05:39 WBC 15.2 H RBC 2.38 L Hgb 7.3 L Hct 21.6 L MCV MCHC RDW 16.6 H Plt Count Lymph % (Auto) [place] % (Auto) Lymph # (Auto) [place] # (Auto) Seg Neutrophils % Seg Neuts % (Manual) Lymphocytes % (Manual) Monocytes % (Manual) Seg Neutrophils # Seg Neutrophils # Man Lymphocytes # (Manual) Monocytes # (Manual) PT INR ABG pH POC ABG pCO2 POC ABG pO2 ABG pO2 ABG HCO3 ABG O2 Saturation ABG Base Excess ABG Hemoglobin ABG Oxyhemoglobin ABG Sodium ABG Potassium ABG Chloride ABG Glucose Oxyhemoglobin Sodium 136 L Potassium Chloride 94.5 L Carbon Dioxide BUN 69 H Creatinine 8.0 H Glucose 219 H POC Glucose 222 H Lactic Acid Calcium 7.8 L Phosphorus 4.80 H D Magnesium Total Bilirubin AST ALT Alkaline Phosphatase Total Protein Albumin Triglycerides Arterial Blood Glucose Arterial Blood Ionized Calcium Crossmatch 01/03/21 01/03/21 01/03/21 11:29 18:49 23:37 WBC RBC Hgb Hct MCV MCHC RDW Plt Count Lymph % (Auto) [place] % (Auto) Lymph # (Auto) [place] # (Auto) Seg Neutrophils % Seg Neuts % (Manual) Lymphocytes % (Manual) Monocytes % (Manual) Seg Neutrophils # Seg Neutrophils # Man Lymphocytes # (Manual) Monocytes # (Manual) PT INR ABG pH POC ABG pCO2 POC ABG pO2 ABG pO2 ABG HCO3 ABG O2 Saturation ABG Base Excess ABG Hemoglobin ABG Oxyhemoglobin ABG Sodium ABG Potassium ABG Chloride ABG Glucose Oxyhemoglobin Sodium Potassium Chloride Carbon Dioxide BUN Creatinine Glucose POC Glucose 232 H 129 H 140 H Lactic Acid Calcium Phosphorus Magnesium Total Bilirubin AST ALT Alkaline Phosphatase Total Protein Albumin Triglycerides Arterial Blood Glucose Arterial Blood Ionized Calcium Crossmatch 01/04/21 01/04/21 01/04/21 03:22 04:38 04:38 WBC 11.1 H RBC 2.89 L Hgb 8.9 L Hct 26.2 L MCV MCHC RDW 16.1 H Plt Count Lymph % (Auto) [place] % (Auto) Lymph # (Auto) [place] # (Auto) Seg Neutrophils % Seg Neuts % (Manual) Lymphocytes % (Manual) Monocytes % (Manual) Seg Neutrophils # Seg Neutrophils # Man Lymphocytes # (Manual) Monocytes # (Manual) PT INR ABG pH POC ABG pCO2 POC ABG pO2 82.3 L ABG pO2 ABG HCO3 ABG O2 Saturation ABG Base Excess ABG Hemoglobin 8.9 L ABG Oxyhemoglobin ABG Sodium 130.5 L ABG Potassium ABG Chloride ABG Glucose 124 H Oxyhemoglobin Sodium Potassium Chloride 95.5 L Carbon Dioxide BUN 87 H Creatinine 9.7 H Glucose 118 H POC Glucose Lactic Acid Calcium 7.7 L Phosphorus Magnesium Total Bilirubin AST ALT Alkaline Phosphatase Total Protein Albumin Triglycerides Arterial Blood Glucose 124 H Arterial Blood Ionized Calcium 3.5 L Crossmatch 01/04/21 01/04/21 01/04/21 05:39 12:04 18:04 WBC RBC Hgb Hct MCV MCHC RDW Plt Count Lymph % (Auto) [place] % (Auto) Lymph # (Auto) [place] # (Auto) Seg Neutrophils % Seg Neuts % (Manual) Lymphocytes % (Manual) Monocytes % (Manual) Seg Neutrophils # Seg Neutrophils # Man Lymphocytes # (Manual) Monocytes # (Manual) PT INR ABG pH POC ABG pCO2 POC ABG pO2 ABG pO2 ABG HCO3 ABG O2 Saturation ABG Base Excess ABG Hemoglobin ABG Oxyhemoglobin ABG Sodium ABG Potassium ABG Chloride ABG Glucose Oxyhemoglobin Sodium Potassium Chloride Carbon Dioxide BUN Creatinine Glucose POC Glucose 134 H 125 H 131 H Lactic Acid Calcium Phosphorus Magnesium Total Bilirubin AST ALT Alkaline Phosphatase Total Protein Albumin Triglycerides Arterial Blood Glucose Arterial Blood Ionized Calcium Crossmatch 01/04/21 01/05/21 01/05/21 23:41 03:23 04:49 WBC RBC Hgb Hct MCV MCHC RDW Plt Count Lymph % (Auto) [place] % (Auto) Lymph # (Auto) [place] # (Auto) Seg Neutrophils % Seg Neuts % (Manual) Lymphocytes % (Manual) Monocytes % (Manual) Seg Neutrophils # Seg Neutrophils # Man Lymphocytes # (Manual) Monocytes # (Manual) PT INR ABG pH POC ABG pCO2 POC ABG pO2 62.8 L ABG pO2 ABG HCO3 ABG O2 Saturation ABG Base Excess ABG Hemoglobin 9.5 L ABG Oxyhemoglobin 92.0 L ABG Sodium 130.1 L ABG Potassium ABG Chloride ABG Glucose 148 H Oxyhemoglobin Sodium Potassium Chloride 96.9 L Carbon Dioxide BUN 57 H Creatinine 6.7 H Glucose 135 H POC Glucose 132 H Lactic Acid Calcium 8.0 L Phosphorus Magnesium Total Bilirubin AST ALT Alkaline Phosphatase Total Protein Albumin Triglycerides Arterial Blood Glucose 148 H Arterial Blood Ionized Calcium 4.1 L Crossmatch 01/05/21 01/05/21 01/05/21 05:04 11:48 12:39 WBC RBC 3.03 L Hgb 9.3 L Hct 27.6 L MCV MCHC RDW 16.5 H Plt Count Lymph % (Auto) [place] % (Auto) Lymph # (Auto) [place] # (Auto) Seg Neutrophils % Seg Neuts % (Manual) Lymphocytes % (Manual) Monocytes % (Manual) Seg Neutrophils # Seg Neutrophils # Man Lymphocytes # (Manual) Monocytes # (Manual) PT INR ABG pH POC ABG pCO2 POC ABG pO2 ABG pO2 ABG HCO3 ABG O2 Saturation ABG Base Excess ABG Hemoglobin ABG Oxyhemoglobin ABG Sodium ABG Potassium ABG Chloride ABG Glucose Oxyhemoglobin Sodium Potassium Chloride Carbon Dioxide BUN Creatinine Glucose POC Glucose 147 H 162 H Lactic Acid Calcium Phosphorus Magnesium Total Bilirubin AST ALT Alkaline Phosphatase Total Protein Albumin Triglycerides Arterial Blood Glucose Arterial Blood Ionized Calcium Crossmatch 01/05/21 01/05/21 01/06/21 17:50 23:32 04:15 WBC RBC Hgb Hct MCV MCHC RDW Plt Count Lymph % (Auto) [place] % (Auto) Lymph # (Auto) [place] # (Auto) Seg Neutrophils % Seg Neuts % (Manual) Lymphocytes % (Manual) Monocytes % (Manual) Seg Neutrophils # Seg Neutrophils # Man Lymphocytes # (Manual) Monocytes # (Manual) PT INR ABG pH POC ABG pCO2 POC ABG pO2 ABG pO2 191.0 H ABG HCO3 ABG O2 Saturation 99.2 H ABG Base Excess ABG Hemoglobin 9.0 L ABG Oxyhemoglobin ABG Sodium ABG Potassium ABG Chloride ABG Glucose Oxyhemoglobin Sodium Potassium Chloride Carbon Dioxide BUN Creatinine Glucose POC Glucose 155 H 115 H Lactic Acid Calcium Phosphorus Magnesium Total Bilirubin AST ALT Alkaline Phosphatase Total Protein Albumin Triglycerides Arterial Blood Glucose Arterial Blood Ionized Calcium Crossmatch 01/06/21 01/06/21 01/06/21 04:45 05:56 07:03 WBC RBC 2.95 L Hgb 9.1 L Hct 26.8 L MCV MCHC RDW 16.8 H Plt Count Lymph % (Auto) [place] % (Auto) Lymph # (Auto) [place] # (Auto) Seg Neutrophils % Seg Neuts % (Manual) Lymphocytes % (Manual) Monocytes % (Manual) Seg Neutrophils # Seg Neutrophils # Man Lymphocytes # (Manual) Monocytes # (Manual) PT INR ABG pH POC ABG pCO2 POC ABG pO2 ABG pO2 ABG HCO3 ABG O2 Saturation ABG Base Excess ABG Hemoglobin ABG Oxyhemoglobin ABG Sodium ABG Potassium ABG Chloride ABG Glucose Oxyhemoglobin Sodium 135 L Potassium Chloride 95.9 L Carbon Dioxide BUN 82 H Creatinine 8.7 H Glucose 127 H POC Glucose 136 H Lactic Acid Calcium 8.3 L Phosphorus Magnesium Total Bilirubin AST ALT Alkaline Phosphatase Total Protein Albumin Triglycerides Arterial Blood Glucose Arterial Blood Ionized Calcium Crossmatch 01/06/21 01/06/21 01/06/21 07:10 11:04 13:38 WBC RBC Hgb Hct MCV MCHC RDW Plt Count Lymph % (Auto) [place] % (Auto) Lymph # (Auto) [place] # (Auto) Seg Neutrophils % Seg Neuts % (Manual) Lymphocytes % (Manual) Monocytes % (Manual) Seg Neutrophils # Seg Neutrophils # Man Lymphocytes # (Manual) Monocytes # (Manual) PT INR ABG pH POC ABG pCO2 POC ABG pO2 ABG pO2 ABG HCO3 ABG O2 Saturation ABG Base Excess ABG Hemoglobin ABG Oxyhemoglobin ABG Sodium ABG Potassium ABG Chloride ABG Glucose Oxyhemoglobin Sodium Potassium Chloride Carbon Dioxide BUN Creatinine Glucose POC Glucose 178 H 155 H Lactic Acid Calcium Phosphorus Magnesium Total Bilirubin AST ALT Alkaline Phosphatase Total Protein Albumin Triglycerides Arterial Blood Glucose Arterial Blood Ionized Calcium Crossmatch See Detail 01/06/21 01/06/21 01/07/21 17:35 22:21 03:07 WBC RBC Hgb Hct MCV MCHC RDW Plt Count Lymph % (Auto) [place] % (Auto) Lymph # (Auto) [place] # (Auto) Seg Neutrophils % Seg Neuts % (Manual) Lymphocytes % (Manual) Monocytes % (Manual) Seg Neutrophils # Seg Neutrophils # Man Lymphocytes # (Manual) Monocytes # (Manual) PT INR ABG pH POC ABG pCO2 POC ABG pO2 ABG pO2 ABG HCO3 ABG O2 Saturation ABG Base Excess ABG Hemoglobin 11.9 L ABG Oxyhemoglobin ABG Sodium 135.6 L ABG Potassium ABG Chloride ABG Glucose 181 H Oxyhemoglobin Sodium Potassium Chloride Carbon Dioxide BUN Creatinine Glucose POC Glucose 138 H 202 H Lactic Acid Calcium Phosphorus Magnesium Total Bilirubin AST ALT Alkaline Phosphatase Total Protein Albumin Triglycerides Arterial Blood Glucose 181 H Arterial Blood Ionized Calcium 4.3 L Crossmatch 01/07/21 01/07/21 01/07/21 04:50 05:21 08:37 WBC 12.4 H RBC Hgb 11.1 L Hct 33.3 L D MCV MCHC RDW 17.0 H Plt Count Lymph % (Auto) 3.2 L [place] % (Auto) 9.4 H Lymph # (Auto) 0.4 L [place] # (Auto) 1.2 H Seg Neutrophils % 86.6 H Seg Neuts % (Manual) Lymphocytes % (Manual) Monocytes % (Manual) Seg Neutrophils # 10.7 H Seg Neutrophils # Man Lymphocytes # (Manual) Monocytes # (Manual) PT INR ABG pH POC ABG pCO2 POC ABG pO2 ABG pO2 ABG HCO3 ABG O2 Saturation ABG Base Excess ABG Hemoglobin ABG Oxyhemoglobin ABG Sodium ABG Potassium ABG Chloride ABG Glucose Oxyhemoglobin Sodium Potassium Chloride Carbon Dioxide BUN 60 H Creatinine 6.3 H Glucose 154 H POC Glucose 177 H Lactic Acid Calcium 8.3 L Phosphorus Magnesium Total Bilirubin AST ALT Alkaline Phosphatase Total Protein Albumin Triglycerides Arterial Blood Glucose Arterial Blood Ionized Calcium Crossmatch Allied health notes reviewed: nursing
[2021-01-07 17:26] LABS: ABG Base Excess -3.9 mmol/L (-2.0-3.0); ABG HCO3 21.5 mmol/L (20.0-26.0); ABG Methemoglobin 0.6 % (0.0-1.5); ABG Oxygen Saturation 94.3 % (95.0-99.0); ABG PCO2 40.3 mm Hg; ABG PH 7.345 pH Units (7.350-7.450); ABG PO2 67.4 mm Hg (80.0-90.0)
[2021-01-07] MEDS ORDERED: GLYCOPYRROLATE 0.4 MG/2 ML INJ IV ONE (17:54)
[2021-01-07] MEDS ORDERED: SCOPOLAMINE TRANSDERMAL PATCH 72 HR TD SCH (18:01)
--- NOTE | 2021-01-07 19:50 | Progress Note ---
Assessment and Plan Assessment: - ESRD on peritoneal dialysis. He has been on peritoneal dialysis for 2 years with no history of peritonitis. - s/p ex lap with extensive lysis of adhesions and two small bowel resections with primary anastamosis for SBO with necrotic segment small bowel. - ex lap, resection of perforated anastamosis, washout and abthera wound vac placement. - s/p ex lap with right hemicolectomy. - respiratory failure on vent, now re-intubated - severe sepsis - gram positive cocci bacteremia - Septic shock - Hyperkalemia - Anemia of ESRD - Hyperglycemia - Postoperative ileus - a-fib, new onset Plan: - transitioned to HD, continue HD MWF, no indication for HD today - appreciate vascular for permacath placement LIJ on 12/27; pulm removed RIJ vascath 12/28 - continue IV empiric abx per ID - s/p ex lap, now off PD, will not be able to continue pd with adhesion and sbo s/p resection - plans for OR today after HD - uf as tolerated with HD - will need outpatient hd placement once stable - stopped binders and sensipar - strict i/os - keep MAP >65 - continue albumin IV - monitor electrolytes daily - appreciate multidisplinary approach to care from surgery, ID, pulm input - a-fib management per cardiology Subjective Date of service: 01/07/21 Principal diagnosis: Ac hypoxemic resp failure; Severe Sepsis; Peritonitis; Acute SBO; ESRD; CHF Interval history: S/p abdomen closure POD 1. Intubated but following commands Objective - Exam Narrative Exam: General appearance: NAD, intubated Eyes: anicteric sclerae HENT: Normocephalic, Atraumatic Neck: supple, tracheal midline, no JVD Lungs: Intubated. Mechanical breath sounds. CV: Tachycardic Abdomen: Soft Midline surgical wound with Wound VAC Extremities: no edema, no cyanosis Skin: No rash. Psych: Calm Neuro: Able to follow commands - Vital Signs Vital signs: Vital Signs - 12hr 01/07/21 01/07/21 01/07/21 08:00 08:30 09:00 Temperature 98.8 F Pulse Rate 98 H 99 H 103 H Pulse Rate [ 102 H From Monitor] Respiratory 26 H 25 H 27 H Rate Blood Pressure 131/68 136/73 135/75 O2 Sat by Pulse 99 100 100 Oximetry 01/07/21 01/07/21 01/07/21 09:10 09:30 10:00 Temperature Pulse Rate 105 H 106 H 100 H Pulse Rate [ From Monitor] Respiratory 30 H 34 H 27 H Rate Blood Pressure 167/74 133/67 124/65 O2 Sat by Pulse 96 99 Oximetry 01/07/21 01/07/21 01/07/21 10:30 11:00 11:26 Temperature Pulse Rate 93 H 92 H Pulse Rate [ 102 H From Monitor] Respiratory 25 H 26 H 24 Rate Blood Pressure 119/60 130/63 O2 Sat by Pulse 98 100 100 Oximetry 01/07/21 01/07/21 01/07/21 11:28 11:30 12:00 Temperature 98.7 F Pulse Rate 92 H 91 H 94 H Pulse Rate [ From Monitor] Respiratory 27 H 16 Rate Blood Pressure 130/70 144/71 O2 Sat by Pulse 100 99 Oximetry 01/07/21 01/07/21 01/07/21 12:30 12:48 13:00 Temperature Pulse Rate 93 H 93 H 94 H Pulse Rate [ From Monitor] Respiratory 25 H 23 22 Rate Blood Pressure 146/74 146/74 150/71 O2 Sat by Pulse 99 99 99 Oximetry 01/07/21 01/07/21 01/07/21 13:30 14:00 14:30 Temperature Pulse Rate 90 90 94 H Pulse Rate [ From Monitor] Respiratory 22 22 20 Rate Blood Pressure 143/68 137/67 129/72 O2 Sat by Pulse 99 98 99 Oximetry 01/07/21 01/07/21 01/07/21 15:00 15:30 15:36 Temperature 98.4 F Pulse Rate 93 H 88 89 Pulse Rate [ From Monitor] Respiratory 21 20 22 Rate Blood Pressure 144/72 141/73 141/73 O2 Sat by Pulse 99 100 100 Oximetry 01/07/21 01/07/21 01/07/21 16:00 16:30 17:00 Temperature Pulse Rate 93 H 91 H 90 Pulse Rate [ 102 H From Monitor] Respiratory 19 18 15 Rate Blood Pressure 143/74 160/75 175/86 O2 Sat by Pulse 100 100 95 Oximetry 01/07/21 01/07/21 17:30 18:00 Temperature Pulse Rate 102 H 114 H Pulse Rate [ From Monitor] Respiratory 15 12 Rate Blood Pressure 149/81 161/93 O2 Sat by Pulse 97 97 Oximetry - Lab 01/07/21 08:37 01/07/21 04:50 Most recent lab results ABG pH 7.345 pH Units (7.350-7.450) L 01/07/21 17:14 ABG pCO2 40.3 mm Hg 01/07/21 17:14 ABG pO2 67.4 mm Hg (80.0-90.0) L 01/07/21 17:14 ABG HCO3 21.5 mmol/L (20.0-26.0) 01/07/21 17:14 ABG O2 Saturation 94.3 % (95.0-99.0) L 01/07/21 17:14 Calcium 8.3 mg/dL (8.4-10.2) L 01/07/21 04:50 Phosphorus 4.40 mg/dL (2.5-4.5) 01/06/21 04:45 Magnesium 2.00 mg/dL (1.7-2.3) 01/06/21 04:45 Medications & Allergies - Medications Allergies/Adverse Reactions: Allergies No Known Allergies Allergy (Verified 06/09/20 15:27) Home Medications: Home Medications Medication Instructions Recorded Confirmed Last Taken Type Albuterol Mdi (or & Nicu Only) 2 puff IH QID PRN #1 inhalation 04/01/17 11/01/20 10/31/20 09:00 Rx [ProAir HFA Inhaler] Calcium Acetate 667 mg PO DAILY 04/20/20 11/01/20 10/31/20 09:00 History Centrum Men's Tablet 1 tab PO DAILY 04/20/20 11/01/20 10/31/20 09:00 History Cinacalcet 30 mg PO DAILY 04/20/20 11/01/20 10/31/20 09:00 History Dialyvite with Zinc Tablet 1 tab PO DAILY 04/20/20 11/01/20 10/31/20 09:00 Histo ry Magnesium 250 mg PO BID 04/20/20 11/01/20 10/31/20 17:00 History Triamcinolone 0.1% 1 1000units TRANSDERMA DAILY 04/20/20 11/01/20 10/31/20 09:00 History Vit B12/Folic Acid/B6/Aa No.15 1,000 mg PO DAILY 08/11/01/20 10/31/20 09:00 History amLODIPine 10 mg PO DAILY 06/09/20 11/01/20 10/31/20 09:00 History AtorvaSTATin 40 mg PO HS 11/01/20 11/01/20 10/31/20 21:00 History Benadryl 25 mg PO HS 11/01/20 11/01/20 10/31/20 21:00 History Diclofenac 1 TRANSDERMA QID 11/01/20 10/31/20 19:00 History Fluticasone Propionate 1 spray INTRANASAL DAILY 11/01/20 11/01/20 10/31/20 09:00 History Vitamin D3 2,000 units 11/01/20 10/31/20 09:00 History carvediloL 12.5 mg PO DAILY 11/01/20 11/01/20 10/31/20 09:00 History hydrALAZINE 100 mg PO TID 11/01/20 11/01/20 10/31/20 19:00 History Active Medications: Generic Name Dose Route Start Last Admin Trade Name Freq PRN Reason Stop Dose Admin Acetaminophen 650 mg 12/31/20 15:30 12/31/20 15:13 Acetaminophen 650 Mg Rect Supp OR 650 mg Q6H PRN Administration Non Cardiac Pain or Temp>100.5 Digoxin 0.125 mg 12/31/20 10:00 01/06/21 18:31 Digoxin 0.5 Mg/2 Ml Inj IV 0.125 mg Q48HR THOMAS Administration Famotidine 10 mg 12/24/20 13:00 01/07/21 10:21 Famotidine 20 Mg/2 Ml Inj IV 10 mg BID THOMAS Administration Fentanyl 50 mcg 12/24/20 11:35 01/01/21 11:28 Fentanyl 100 Mcg/2 Ml Inj IV 50 mcg Q10MIN PRN Administration ANALGESIA Haloperidol Lactate 5 mg 12/29/20 14:16 12/31/20 00:19 Haloperidol Lactate 5 Mg/1 Ml Inj IV 5 mg Q12H PRN Administration Agitation Heparin Sodium (Porcine) 5,000 unit 12/24/20 10:00 01/07/21 10:20 Heparin 5,000 Unit/1 Ml Vial SUB-Q 5,000 unit Q12HR THOMAS Administration Hydralazine HCl 10 mg 12/30/20 12:00 01/07/21 17:21 Hydralazine 20 Mg/1 Ml Inj IV 10 mg Q4HR THOMAS Administration Hydrophilic Ointment 1 applic 12/31/20 06:39 Lip Therapy Vaseline TP Q2HR PRN Dry Lips Sodium Chloride 100 mls @ 999 mls/hr 12/23/20 11:03 Nacl 0.9% IV [place] PRN Hypotension Fentanyl Citrate 2,000 mcg in 100 mls @ 4.725 mls/hr 12/31/20 08:00 01/07/21 17:18 Fentanyl Drip Premix IV 0 mcg/kg/hr TITR THOMAS 0 mls/hr Titration Protocol 1 MCG/KG/HR NORepinephrine/NS 8 MG-250 ML 8 mg in 250 mls @ 3.75 mls/hr 12/31/20 09:00 01/03/21 08:30 Norepinephrine/Ns 8 Mg-250 Ml (Double Conc) IV 0 mcg/min TITRATE THOMAS 0 mls/hr Titration Protocol 2 MCG/MIN Vasopressin 20 unit/ Sodium 101 mls @ 9.09 mls/hr 12/31/20 21:00 01/02/21 21:13 Chloride IV 0 units/min TITR THOMAS 0 mls/hr Titration Protocol 0.03 UNITS/MIN Phenylephrine HCl 100 mg/ 100 mls @ 3 mls/hr 12/31/20 23:45 01/01/21 18:30 Sodium Chloride IV 0 mcg/min TITR THOMAS 0 mls/hr Titration Protocol 50 MCG/MIN Sodium Chloride 500 mls @ 0 mls/hr 01/03/21 17:03 Nacl 0.9% 500 Ml IV ONCE THOMAS As Directed Amino Acids/Electrolytes/Dextrose 2,016 mls @ 84 mls/hr 01/06/21 20:00 01/06/21 20:04 Tpn Adult IV 01/07/21 19:59 84 mls/hr DAILY@1999 [facility] Administration Protocol Amino Acids/Electrolytes/Dextrose 2,016 mls @ 84 mls/hr 01/07/21 20:00 Tpn Adult IV 01/08/21 19:59 DAILY@1999 [facility] Protocol Insulin Glargine 10 units 01/03/21 10:00 01/07/21 10:21 Insulin Glargine 100 Units/Ml SUB-Q 10 units DAILY THOMAS Administration Insulin Human Lispro 0 unit 01/03/21 12:00 01/07/21 17:20 Insulin Lispro 100 Unit/Ml SUB-Q Not Given Q6HR [facility] Protocol Metoprolol Tartrate 5 mg 12/30/20 12:00 01/07/21 17:21 Metoprolol Tartrate 5 Mg/5 Ml Inj IV 5 mg Q4HR THOMAS Administration Multi-Ingred Cream/Lotion/Oil/Oint 1 applic 12/31/20 06:39 Mineral Oil/Petrolatum, White Ophth Oint 3.5 Gm OU Q4HR PRN Dry Eye(s) Scopolamine 1 each 01/07/21 18:01 01/07/21 17:21 Scopolamine Transdermal Patch 72 Hr TD 1 each Q3D THOMAS Administration Sodium Chloride 10 ml 12/22/20 22:00 01/07/21 10:21 Sodium Chloride 0.9% 10 Ml Flush Syringe IV 10 ml BID THOMAS Administration Sodium Chloride 10 ml 12/22/20 19:42 Sodium Chloride 0.9% 10 Ml Flush Syringe IV PRN PRN LINE FLUSH
[2021-01-07] MEDS ORDERED: TOTAL PARENTERAL NUTRITION 2,016 ML IV SCH (20:00)
[2021-01-08] MEDS: hydrALAZINE 20 MG/1 ML INJ IV SCH ×4 (02:07→13:44)
[2021-01-08] MEDS: METOPROLOL TARTRATE 5 MG/5 ML INJ IV SCH ×6 (02:08→21:36)
[2021-01-08 05:12] LABS: Albumin 1.9 g/dL (3.9-5); Calcium 8.7 mg/dL (8.4-10.2)
[2021-01-08] MEDS: INSULIN LISPRO 100 UNIT/ML SUB-Q SCH ×4 (05:42→18:16)
[2021-01-08] MEDS: fentaNYL 100 MCG/2 ML INJ IV PRN (07:41)
[2021-01-08] MEDS: FAMOTIDINE 20 MG/2 ML INJ IV SCH ×2 (09:26→21:36)
[2021-01-08] MEDS: HALOPERIDOL LACTATE 5 MG/1 ML INJ IV PRN (09:32)
[2021-01-08] MEDS: HEPARIN 5,000 UNIT/1 ML VIAL SUB-Q SCH ×2 (09:34→21:36)
[2021-01-08] MEDS: INSULIN GLARGINE 100 UNITS/ML SUB-Q SCH (09:34)
--- NOTE | 2021-01-08 11:21 | Progress Note ---
Assessment and Plan Assessment and plan: This is a 60 YO Male with ESRD on PD, GERD, Crohn's Disease, Nicotine Dependence, HTN, Systolic CHF(EF 35%) who presented to the emergency department on 12/22 with complaints of abdominal pain which began shortly after eating fast food rated 10/10 which is periumbilical, constant, associated with fever, nausea and multiple sites of vomiting and self-reported inability to undergo PD. In the emergency room patient underwent a CT scan of the abdomen/pelvis which revealed evidence of partial small bowel obstruction, symptoms were consistent with bacterial peritonitis. Patient was admitted to the hospital service with sepsis, peritonitis, and small bowel obstruction with consults to general surgery, nephrology, infectious disease and [facility]. 12/23. Patient had temperature 101.2 F, tachycardia and elevated lactic acid on admission. Meet sepsis criteria. Started on IV antibiotics. ID has been co nsulted. Surgery consulted this a.m.-advised laparoscopy. He remains on NG tube connected to suction. 12/24. Patient was noted to have peritonitis yesterday and patient undergoing exploratory laparotomy. Patient remained intubated after procedure and is in ICU. Now on broad-spectrum antibiotics. ID on board. 12/25. Remains mechanically ventilated and sedated. Temp 103 Fahrenheit. Antibiotics broadened-ID added fluconazole and Flagyl. Blood cultures ordered. Plan to repeat CT abdomen tomorrow if not better. Surgery following. 12/26: Patient remains on mechanical ventilation on CMV tidal line 550, rate of 14, PEEP of 8 and 30% FiO2 and sedated on fentanyl 4 micrograms. Today we will remove his Jeffery and CCM dropped his rate controlled him on CPAP. We will trend CBC given recent drop in H/H. 12/27: Patient remains intubated on CMV tidal volume 550, rate 12, PEEP 8 on 30% FiO2 at the time my examination. Patient's TPN will be changed to PPN. Patient's fentanyl drip will be changed to IV push fentanyl and have a permacath placed today and midline. Patient was placed on a spontaneous breathing trial was switched back to CMV prior to procedure. 12/28: Patient on fentanyl but awake and follows commands. At the time of my examination he was on a CPAP trial and is scheduled to receive HD today. s/o permacath and PICC placement with vascular yesterday. His blood culture grew P revotella and addition to Streptococcus bovis. This evening Dr. Spicer attempted to extubate the patient and his heart rate went to the 180s. Stat EKG obtained and cardiology consulted. 12/29: Patient was started on amiodarone IV for A. fib RVR yesterday and today he is more rate controlled into the 70s and 80s. Patient was extubated yesterday and is currently on Ventimask. Patient will be transferred to [facility]. Patient continues to be n.p.o. with TPN and NG tube to [facility]. He is hypokalemic today which was repleted. 12/30; patient was on IV amiodarone for treatment with RVR, rate is controlled. Patient was off oxygen. patient is n.p.o. and on TPN. Surgery is following the patient. 12/31: Patient was intubated overnight for respiratory distress and this morning on examination he was on assist control tidal volume 450, rate 20, PEEP 6, 100% FiO2 and RT was getting a ABG to adjust vent settings. Patient had a acute bump in WBC and per ID recommendations we will obtain a CT abdomen/pelvis if leukocytosis persist. Patient is on TPN and sedated with Levophed. Patient is also on vasopressor support with Levophed. Per surgery his ileus is resolving however will maintain OGT to LIWS. 01/01: Patient was started on a vasopressin yesterday late evening. This morning patient is on 20 mcg of Levophed and 0.03 vasopressin and sedated on 20 mcg of propofol. Patient WBC increased today and he is hypokalemic. We will treat hyperkalemia. Patient had a CT chest and abdomen/pelvis pending. The time examination total of 450, rate 20, PEEP of 6 and 35 percent FiO2. Per RN, Dr Pollock has stated that the patient will be returning to the OR today for likely anastomosis seen on CT abdomen/pelvis. 01/02: Patient noted, WBC improving, but noted to have anemia, will transfuse additional unit of Blood and repeat H/H. continue supportive care. 01/03: Continue to wean pressors, ABX PER ID, patient to return to OR today for washout and possible closure, CONTINUE TPN 01/04: Continues to show some improvement. Today is POD#12 s/p ex lap with extensive lysis of adhesions and two small bowel resections with primary anastamosis for SBO with necrotic segment small bowel. POD#3 s/p ex lap, resection of perforated anastamosis, washout and abthera wound vac placement. POD#1 s/p ex lap with right hemicolectomy. Surgery planning to take back to the OR on Saturday with the hope to anastamos ileum to transverse colon and close abdomen. keep NGT to suction. Pt in deep sedation due to open abdomen. Per ID -Continue IV Zosyn, renally dosed for Strep bacteremia treatment till 01/06/2021 -On TPN 01/05: Patient continues on HD, anticipate return to OR tomorrow for closure and anastemosis. Continues with deep sedation due to open abdomen 01/06: Continue supportive care, monitor pressures and electrolytes. He is post op Exploratory laparotomy, 2. Jejunal colonic anastomosis,3. Segmental small bowel resection and anastemosis closure today. Continue wound vac 01/07: Continue supportive care, Today is POD#15 s/p ex lap with extensive lysis of adhesions and two small bowel resections with primary anastamosis for SBO with necrotic segment small bowel. POD#6 s/p ex lap, resection of perforated anastamosis, washout and abthera wound vac placement. POD#4s/p ex lap with right hemicolectomy.POD #1 exploratory laparotomy, 2. Jejunal colonic anastomosis,3. Segmental small bowel resection. Continue to monitor and correct electrolytes. Patient remains on fentanyl and TPN with lipids. Still hypoactive bowel sounds. 5/16: Patient now extubated, asked when he can go home, Still lethargic. Continue wound management, wound vac, Will need Rehab eval prior to discharge. Severe Sepsis with shock Streptococcus bovis bacteremia/Prevotella bacteremia Gwendolyn albicans tracheal aspirate Small bowel obstruction/necrotic bowel s/p ex lap with extensive lysis of adhesions, 2 small bowel resections with primary anastomosis Acute hypoxic respiratory failure Postoperative ileus Atrial fibrillation with RVR Hyperkalemia Gwendolyn albicans in tracheal aspirate from 12/24 ESRD on PD, PermCath to be placed Transaminitis Systolic CHF(EF 35%) Crohn's disease Hypertension -CCM, surgery, infectious disease, nephrology, vascular surgery, cardiology consulted, appreciate recommendations -S/p ex lap with extensive expectations, 2 small bowel resections with primary anastomosis with surgery on 12/23 -s/p PICC and Permacath placement with vascular surgery on 12/27 -Extubated on 12/28, reintubated 12/31 for respiratory distress -Vasopressor support with Levophed and vasopressin -Transitioned to HD from PD -HD per nephro -NPO -PPN -NGT to LIS -IV antibiotics -12/29 echocardiogram shows moderate concentric LVH, small pericardial effusion, transmitral Doppler flow pattern is grade 1 abnormal relaxation pattern, left- ventricular systolic function normal, LVEF 50 to 55%, no wall motion abnormalities. -01/01 CT abdomen/pelvis shows small pericardial effusion, mild coronary artery atherosclerotic calcification, small bilateral pleural effusions with associated volume loss, no convincing evidence of bowel obstruction or inflammation, postoperative changes from interval/recent midline laparotomy with a moderate amount of free fluid throughout the abdomen, small amount of dependent free air presumably postoperative -Tobacco abuse cessation counseling -Trend CBC, BMP DVT/GI prophylaxis: PPI, heparin subcu, SCDs to bilateral lower extremities while in bed Disposition: ICU Critical care statement The high probability of a clinically significant, sudden or life threatening deterioration of the [pulmonary, cardiac, neuro, renal] system(s) required my full and direct attention, intervention and personal management. The aggregate critical care time was [35] minutes. This time is in addition to time spent performing reported procedures but includes the following: [x] Data Review and interpretation [x] Patient assessment and monitoring of vital signs [x] Documentation [x] Medication orders and management History Interval history: This is a 60-year-old male with ESRD on peritoneal dialysis, Crohn's, hypertension, systolic CHF (EF 35%) who was admitted with sepsis, peritonitis, small bowel obstruction and now has gram-positive cocci bacteremia. Patient seen and examined,remains on full ventilatory support , no acute issues reported overnight Hospitalist Physical - Physical exam Narrative exam: General appearance: Present: no acute distress, other (Sedated on mechanical ventilation) - EENT Eyes: Present: PERRL ENT: poor dentition - Neck Neck: Absent: masses or JVD, cervical LAD - Respiratory Respiratory effort: normal Respiratory: bilateral: diminished - Cardiovascular Rhythm: irregularly irregular Heart Sounds: Present: S1 & S2. Absent: systolic murmur, diastolic murmur - Extremities Extremities: no ischemia, pulses intact, pulses symmetrical, No edema, normal temperature, normal color Peripheral Pulses: within normal limits - Abdominal General gastrointestinal: distended, abdomen dressing, rigid, wound vac, small incision wound noted on the abdomen following recent surgery edematous absent bowel sounds, PD catheter site with dwayne - Integumentary Integumentary: Present: warm, dry - Neurologic Neurologic: other (sedated and intubated) - Allied Health Allied health notes reviewed: nursing - Constitutional Vitals: Temp Pulse Resp BP Pulse Ox 99.3 F 85 18 187/79 98 01/08/21 08:00 01/08/21 11:00 01/08/21 11:00 01/08/21 11:00 01/08/21 11:00 General appearance: Present: no acute distress, other (Sedated on mechanical ventilation) HEART Score - HEART Score Troponin: Troponin T 0.021 ng/mL (0.00-0.029) 12/22/20 14:38 Results - Labs CBC & Chem 7: 01/07/21 08:37 01/08/21 04:34 Labs: Laboratory Last Values WBC 12.4 K/mm3 (4.5-11.0) H 01/07/21 08:37 RBC 3.72 M/mm3 (3.65-5.03) 01/07/21 08:37 Hgb 11.1 gm/dl (11.8-15.2) L 01/07/21 08:37 Hct 33.3 % (35.5-45.6) L D 01/07/21 08:37 MCV 90 fl (84-94) 01/07/21 08:37 MCH 30 pg (28-32) 01/07/21 08:37 MCHC 33 % (32-34) 01/07/21 08:37 RDW 17.0 % (13.2-15.2) H 01/07/21 08:37 Plt Count 262 K/mm3 (140-440) 01/07/21 08:37 Lymph % (Auto) 3.2 % (13.4-35.0) L 01/07/21 08:37 [place] % (Auto) 9.4 % (0.0-7.3) H 01/07/21 08:37 Eos % (Auto) 0.4 % (0.0-4.3) 01/07/21 08:37 Baso % (Auto) 0.4 % (0.0-1.8) 01/07/21 08:37 Lymph # (Auto) 0.4 K/mm3 (1.2-5.4) L 01/07/21 08:37 [place] # (Auto) 1.2 K/mm3 (0.0-0.8) H 01/07/21 08:37 Eos # (Auto) 0.1 K/mm3 (0.0-0.4) 01/07/21 08:37 Baso # (Auto) 0.1 K/mm3 (0.0-0.1) 01/07/21 08:37 Add Manual Diff Complete 01/01/21 17:58 Total Counted 100 01/01/21 17:58 Seg Neutrophils % 86.6 % (40.0-70.0) H 01/07/21 08:37 Seg Neuts % (Manual) 84.0 % (40.0-70.0) H 01/01/21 17:58 Band Neutrophils % 1.0 % 12/29/20 05:16 Lymphocytes % (Manual) 4.0 % (13.4-35.0) L 01/01/21 17:58 Reactive Lymphs % (Man) 1.0 % 12/29/20 05:16 Monocytes % (Manual) 12.0 % (0.0-7.3) H 01/01/21 17:58 Eosinophils % (Manual) 2.0 % (0.0-4.3) 12/29/20 05:16 Metamyelocytes % 2.0 % 12/29/20 05:16 Nucleated RBC % Not Reportable 01/01/21 17:58 Seg Neutrophils # 10.7 K/mm3 (1.8-7.7) H 01/07/21 08:37 Seg Neutrophils # Man 22.6 K/mm3 (1.8-7.7) H 01/01/21 17:58 Band Neutrophils # 0.0 K/mm3 01/01/21 17:58 Lymphocytes # (Manual) 1.1 K/mm3 (1.2-5.4) L 01/01/21 17:58 Abs React Lymphs (Man) 0.0 K/mm3 01/01/21 17:58 Monocytes # (Manual) 3.2 K/mm3 (0.0-0.8) H 01/01/21 17:58 Eosinophils # (Manual) 0.0 K/mm3 (0.0-0.4) 01/01/21 17:58 Basophils # (Manual) 0.0 K/mm3 (0.0-0.1) 01/01/21 17:58 Metamyelocytes # 0.0 K/mm3 01/01/21 17:58 Myelocytes # 0.0 K/mm3 01/01/21 17:58 Promyelocytes # 0.0 K/mm3 01/01/21 17:58 Blast Cells # 0.0 K/mm3 01/01/21 17:58 WBC Morphology Not Reportable 01/01/21 17:58 Hypersegmented Neuts Not Reportable 01/01/21 17:58 Hyposegmented Neuts Not Reportable 01/01/21 17:58 Hypogranular Neuts Not Reportable 01/01/21 17:58 Smudge Cells Not Reportable 01/01/21 17:58 Toxic Granulation Not Reportable 01/01/21 17:58 Toxic Vacuolation Not Reportable 01/01/21 17:58 Dohle Bodies Not Reportable 01/01/21 17:58 Pelger-Huet Anomaly Not Reportable 01/01/21 17:58 Lamar Rods Not Reportable 01/01/21 17:58 Platelet Estimate Not Reportable 01/01/21 17:58 Clumped Platelets Not Reportable 01/01/21 17:58 Plt Clumps, EDTA Not Reportable 01/01/21 17:58 Large Platelets Not Reportable 01/01/21 17:58 Giant Platelets Not Reportable 01/01/21 17:58 Platelet Satelliting Not Reportable 01/01/21 17:58 Plt Morphology Comment Not Reportable 01/01/21 17:58 RBC Morphology Normal 01/01/21 17:58 Dimorphic RBCs Not Reportable 01/01/21 17:58 Polychromasia Not Reportable 01/01/21 17:58 Hypochromasia Not Reportable 01/01/21 17:58 Poikilocytosis Not Reportable 01/01/21 17:58 Anisocytosis Not Reportable 01/01/21 17:58 Microcytosis Not Reportable 01/01/21 17:58 Macrocytosis Not Reportable 01/01/21 17:58 Spherocytes Not Reportable 01/01/21 17:58 Pappenheimer Bodies Not Reportable 01/01/21 17:58 Sickle Cells Not Reportable 01/01/21 17:58 Target Cells Not Reportable 01/01/21 17:58 Tear Drop Cells Not Reportable 01/01/21 17:58 Ovalocytes Not Reportable 01/01/21 17:58 Helmet Cells Not Reportable 01/01/21 17:58 [place] Bodies Not Reportable 01/01/21 17:58 [place] Rings Not Reportable 01/01/21 17:58 Jenny Cells Not Reportable 01/01/21 17:58 Bite Cells Not Reportable 01/01/21 17:58 Crenated Cell Not Reportable 01/01/21 17:58 Elliptocytes Not Reportable 01/01/21 17:58 Acanthocytes (Spur) Not Reportable 01/01/21 17:58 Rouleaux Not Reportable 01/01/21 17:58 Hemoglobin C Crystals Not Reportable 01/01/21 17:58 Schistocytes Not Reportable 01/01/21 17:58 Malaria parasites Not Reportable 01/01/21 17:58 Lucas Bodies Not Reportable 01/01/21 17:58 Hem Pathologist Commnt No 01/01/21 17:58 PT 16.9 Sec. (12.2-14.9) H 01/01/21 12:45 INR 1.39 (0.87-1.13) H 01/01/21 12:45 APTT 25.1 Sec. (24.2-36.6) 12/22/20 14:38 ABG pH 7.345 pH Units (7.350-7.450) L 01/07/21 17:14 POC ABG pCO2 41.4 mmHg (32.0-48.0) 01/07/21 03:07 ABG pCO2 40.3 mm Hg 01/07/21 17:14 POC ABG pO2 94.5 mmHg (83-108) 01/07/21 03:07 ABG pO2 67.4 mm Hg (80.0-90.0) L 01/07/21 17:14 POC ABG HCO3 22.7 01/07/21 03:07 ABG HCO3 21.5 mmol/L (20.0-26.0) 01/07/21 17:14 ABG O2 Saturation 94.3 % (95.0-99.0) L 01/07/21 17:14 ABG O2 Content 11.6 (0.0-44) 01/07/21 17:14 POC ABG Base Excess -2.7 01/07/21 03:07 ABG Base Excess -3.9 mmol/L (-2.0-3.0) L 01/07/21 17:14 ABG Hemoglobin 8.9 gm/dl (14.0-18.0) L 01/07/21 17:14 ABG Oxyhemoglobin 96.6 (94-98) 01/07/21 03:07 ABG Carboxyhemoglobin 1.5 % (0.0-5.0) 01/07/21 17:14 ABG Methemoglobin 0.6 % (0.0-1.5) 01/07/21 17:14 ABG Sodium 135.6 mmol/L (136.0-145.0) L 01/07/21 03:07 ABG Potassium 4.0 mmol/L (3.40-4.50) 01/07/21 03:07 ABG Chloride 102.0 mmol/L (98-107) 01/07/21 03:07 ABG Glucose 181 mg/dL (65-95) H 01/07/21 03:07 Oxyhemoglobin 92.3 % (95.0-99.0) L 01/07/21 17:14 Carboxyhemoglobin 0.7 (0.5-1.5) 01/07/21 03:07 FiO2 21 % 01/07/21 17:14 FiO2 % 45.0 01/07/21 03:07 Sodium 139 mmol/L (137-145) 01/08/21 04:34 Potassium 3.9 mmol/L (3.6-5.0) 01/08/21 04:34 Chloride 100.7 mmol/L (98-107) 01/08/21 04:34 Carbon Dioxide 20 mmol/L (22-30) L 01/08/21 04:34 Anion Gap 22 mmol/L 01/08/21 04:34 BUN 93 mg/dL (9-20) H 01/08/21 04:34 Creatinine 8.8 mg/dL (0.8-1.3) H 01/08/21 04:34 Estimated GFR 7 ml/min 01/08/21 04:34 BUN/Creatinine Ratio 11 % 01/08/21 04:34 Glucose 120 mg/dL (75-100) H 01/08/21 04:34 POC Glucose 125 mg/dL (70-105) H 01/08/21 05:26 Lactic Acid 1.50 mmol/L (0.7-2.0) 01/02/21 18:00 Calcium 8.7 mg/dL (8.4-10.2) 01/08/21 04:34 Phosphorus 3.70 mg/dL (2.5-4.5) 01/08/21 04:34 Magnesium 2.00 mg/dL (1.7-2.3) 01/08/21 04:34 Total Bilirubin 0.90 mg/dL (0.1-1.2) 01/08/21 04:34 AST 30 units/L (5-40) 01/08/21 04:34 ALT 29 units/L (7-56) 01/08/21 04:34 Alkaline Phosphatase 133 units/L (35-129) H 01/08/21 04:34 Ammonia 30.0 umol/L (25-60) 12/22/20 14:38 Troponin T 0.021 ng/mL (0.00-0.029) 12/22/20 14:38 Total Protein 5.4 g/dL (6.3-8.2) L 01/08/21 04:34 Albumin 1.9 g/dL (3.9-5) L 01/08/21 04:34 Albumin/Globulin Ratio 0.5 % 01/08/21 04:34 Triglycerides 155 mg/dL (2-149) H 12/30/20 09:00 Lipase 41 units/L (13-60) 12/22/20 14:38 Procalcitonin > 200.00 ng/mL (<0.15) 12/24/20 15:06 TSH 1.470 mlU/mL (0.270-4.200) 12/28/20 19:44 Arterial Blood Glucose 181 mg/dL (65-95) H 01/07/21 03:07 Arterial Blood Ionized Calcium 4.3 mg/dL (4.6-5.3) L 01/07/21 03:07 Urine Color Yellow (Yellow) 12/22/20 18:53 Urine Turbidity Clear (Clear) 12/22/20 18:53 Urine pH 7.0 (5.0-7.0) 12/22/20 18:53 Ur Specific [place] 1.012 (1.003-1.030) 12/22/20 18:53 Urine Protein >500 mg/dL (Negative) 12/22/20 18:53 Urine Glucose (UA) Neg mg/dL (Negative) 12/22/20 18:53 Urine Ketones Neg mg/dL (Negative) 12/22/20 18:53 Urine Blood Neg (Negative) 12/22/20 18:53 Urine Nitrite Neg (Negative) 12/22/20 18:53 Urine Bilirubin Neg (Negative) 12/22/20 18:53 Urine Urobilinogen < 2.0 mg/dL (<2.0) 12/22/20 18:53 Ur Leukocyte Esterase Neg (Negative) 12/22/20 18:53 Urine WBC (Auto) < 1.0 /HPF (0.0-6.0) 12/22/20 18:53 Urine RBC (Auto) 1.0 /HPF (0.0-6.0) 12/22/20 18:53 Fluid Type Dialysate 12/22/20 Unknown Fluid Color Colorless 12/22/20 Unknown Fluid Appearance Cloudy 12/22/20 Unknown Fluid WBC 208 /mm3 12/22/20 Unknown Fluid RBC 45 /mm3 12/22/20 Unknown Fluid Seg Neutrophils 82.0 % 12/22/20 Unknown Fluid Lymphocytes 11.0 % 12/22/20 Unknown Fluid Reactive Lymphs 0 % 12/22/20 Unknown Fluid Monocytes 7.0 % 12/22/20 Unknown Fluid Eosinophils 0 % 12/22/20 Unknown Fluid Basophils 0 % 12/22/20 Unknown Random Vancomycin 13.7 ug/mL (0-40.0) 12/26/20 Unknown Hepatitis A IgM Ab Non-reactive (NonReactive) 12/23/20 11:38 Hep Bs Antigen Non-reactive (Negative) 12/23/20 11:38 Hep B Core IgM Ab Non-reactive (NonReactive) 12/23/20 11:38 Hepatitis C Antibody Non-reactive (NonReactive) 12/23/20 11:38 Blood Type A POSITIVE 01/06/21 07:10 Antibody Screen Negative 01/06/21 07:10 Crossmatch See Detail 01/06/21 07:10 Jeffery/IV: Voiding Method Incontinent Active Medications - Current Medications Current Medications: Generic Name Dose Route Start Last Admin Trade Name Freq PRN Reason Stop Dose Admin Acetaminophen 650 mg 12/31/20 15:30 12/31/20 15:13 Acetaminophen 650 Mg Rect Supp MS 650 mg Q6H PRN Administration Non Cardiac Pain or Temp>100.5 Digoxin 0.125 mg 12/31/20 10:00 01/06/21 18:31 Digoxin 0.5 Mg/2 Ml Inj IV 0.125 mg Q48HR THOMAS Administration Famotidine 10 mg 12/24/20 13:00 01/08/21 09:26 Famotidine 20 Mg/2 Ml Inj IV 10 mg BID THOMAS Administration Fentanyl 50 mcg 12/24/20 11:35 01/08/21 07:41 Fentanyl 100 Mcg/2 Ml Inj IV 50 mcg Q10MIN PRN Administration ANALGESIA Haloperidol Lactate 5 mg 12/29/20 14:16 01/08/21 09:32 Haloperidol Lactate 5 Mg/1 Ml Inj IV 5 mg Q12H PRN Administration Agitation Heparin Sodium (Porcine) 5,000 unit 12/24/20 10:00 01/08/21 09:34 Heparin 5,000 Unit/1 Ml Vial SUB-Q 5,000 unit Q12HR THOMAS Administration Hydralazine HCl 10 mg 12/30/20 12:00 01/08/21 09:26 Hydralazine 20 Mg/1 Ml Inj IV 10 mg Q4HR THOMAS Administration Hydrophilic Ointment 1 applic 12/31/20 06:39 Lip Therapy Vaseline TP Q2HR PRN Dry Lips Sodium Chloride 100 mls @ 999 mls/hr 12/23/20 11:03 Nacl 0.9% IV RYLAND PRN Hypotension Fentanyl Citrate 2,000 mcg in 100 mls @ 4.725 mls/hr 12/31/20 08:00 01/07/21 17:18 Fentanyl Drip Premix IV 0 mcg/kg/hr TITR THOMAS 0 mls/hr Titration Protocol 1 MCG/KG/HR NORepinephrine/NS 8 MG-250 ML 8 mg in 250 mls @ 3.75 mls/hr 12/31/20 09:00 01/03/21 08:30 Norepinephrine/Ns 8 Mg-250 Ml (Double Conc) IV 0 mcg/min TITRATE THOMAS 0 mls/hr Titration Protocol 2 MCG/MIN Vasopressin 20 unit/ Sodium 101 mls @ 9.09 mls/hr 12/31/20 21:00 01/02/21 21:13 Chloride IV 0 units/min TITR THOMAS 0 mls/hr Titration Protocol 0.03 UNITS/MIN Phenylephrine HCl 100 mg/ 100 mls @ 3 mls/hr 12/31/20 23:45 01/01/21 18:30 Sodium Chloride IV 0 mcg/min TITR THOMAS 0 mls/hr Titration Protocol 50 MCG/MIN Sodium Chloride 500 mls @ 0 mls/hr 01/03/21 17:03 Nacl 0.9% 500 Ml IV ONCE THOMAS As Directed Amino Acids/Electrolytes/Dextrose 2,016 mls @ 84 mls/hr 01/07/21 20:00 01/07/21 20:48 Tpn Adult IV 01/08/21 19:59 84 mls/hr DAILY@1999 THOMAS Administration Protocol Insulin Glargine 10 units 01/03/21 10:00 01/08/21 09:34 Insulin Glargine 100 Units/Ml SUB-Q 10 units DAILY THOMAS Administration Insulin Human Lispro 0 unit 01/03/21 12:00 01/08/21 05:42 Insulin Lispro 100 Unit/Ml SUB-Q Not Given Q6HR [facility] Protocol Metoprolol Tartrate 5 mg 12/30/20 12:00 01/08/21 09:33 Metoprolol Tartrate 5 Mg/5 Ml Inj IV 5 mg Q4HR THOMAS Administration Multi-Ingred Cream/Lotion/Oil/Oint 1 applic 12/31/20 06:39 Mineral Oil/Petrolatum, White Ophth Oint 3.5 Gm OU Q4HR PRN Dry Eye(s) Scopolamine 1 each 01/07/21 18:01 01/07/21 17:21 Scopolamine Transdermal Patch 72 Hr TD 1 each Q3D THOMAS Administration Sodium Chloride 10 ml 12/22/20 22:00 01/08/21 09:34 Sodium Chloride 0.9% 10 Ml Flush Syringe IV 10 ml BID THOMAS Administration Sodium Chloride 10 ml 12/22/20 19:42 Sodium Chloride 0.9% 10 Ml Flush Syringe IV PRN PRN LINE FLUSH Nutrition/Malnutrition Assess - Dietary Evaluation Nutrition/Malnutrition Findings: Nutrition Notes Start: 12/24/20 12:36 Freq: Status: Active Protocol: Document 01/07/21 11:52 NHALL (Rec: 01/07/21 12:08 [facility] [id number]) Nutrition Notes Initial or Follow up Reassessment Current Diagnosis CKD (stage V CKD),Sepsis, Hypertension,Heart Failure Other Pertinent Diagnosis Peritonitis, SBO s/p resection Current Diet TPN at 84 ml/hr Labs/Tests BUN 60 Cr 6.3 BG 154 Pertinent Medications Reviewed Height 5 ft 7 in Weight 94.8 kg [place] Body Weight (kg) 67.27 BMI 32.7 Weight Status Obese Subjective/Other Information Day 13 TPN. Pt remains on vent support. Percent of energy/protein needs met: 100% energy 100% pro Burn Absent Trauma Absent #1 Nutrition Diagnosis Inadequate oral intake Diagnosis Progress(for reassessment Continues documentation) Is patient on ventilator? Yes Is Patient Ambulatory and/or Out of Bed No REE-([facility]-confined to bed) 2051.768 Kcal/Kg value to use for calculation 17 Approximate Energy Requirements Using 1612 kcal/Kg Calculation Used for Recommendations Kcal/kg Additional Notes Pro needs >2g/kg IBW: >135g/ day Fluid needs per MD. Nutrition Intervention Nutrition Support: Continue CPN at 84 ml/hr. MVI Osmolality: 1670 Kcal 1,730 Protein (gm) 135 Carbohydrates (gm) 350 Fat (gm) 0 Fluid (mL) 2,016 Goal #1 Meet at least 75% of estimated energy and protein needs via CPN Follow-Up By: 01/08/21 Additional Comments Labs in am: CMP, Mg, Phos
[2021-01-08] MEDS: DIGOXIN 0.5 MG/2 ML INJ IV SCH (11:55)
--- NOTE | 2021-01-08 11:56 | Progress Note ---
Assessment and Plan - Patient Problems (1) Atrial fibrillation Current Visit: Yes Status: Acute (2) Accelerated hypertension Current Visit: No Status: Acute Subjective Date of service: 01/08/21 Principal diagnosis: Ac hypoxemic resp failure; Severe Sepsis; Peritonitis; Acute SBO; ESRD; CHF Interval history: extubated,,SEDATED Objective Vital Signs Temp Pulse Pulse Resp BP Pulse Ox 01/08/21 11:00 85 18 187/79 98 01/08/21 10:30 79 19 185/71 98 01/08/21 10:00 79 17 170/65 98 01/08/21 09:33 88 190/76 01/08/21 09:30 91 H 21 190/76 98 01/08/21 09:26 88 202/80 01/08/21 09:01 99 01/08/21 09:00 87 20 192/83 99 01/08/21 08:30 83 19 195/84 99 01/08/21 08:00 99.3 F 85 84 19 188/77 99 01/08/21 07:31 96 H 21 198/88 98 01/08/21 07:00 85 20 179/77 01/08/21 06:31 87 19 174/70 01/08/21 06:00 88 19 166/79 01/08/21 05:30 89 20 173/75 97 01/08/21 05:01 86 18 98 01/08/21 04:30 86 19 181/79 98 01/08/21 04:00 98.6 F 87 81 22 173/79 97 01/08/21 03:30 88 18 178/77 97 01/08/21 03:00 86 19 170/79 97 01/08/21 02:30 85 21 170/80 97 01/08/21 02:00 84 23 164/79 97 01/08/21 01:30 86 24 97 01/08/21 01:00 85 18 173/79 96 01/08/21 00:30 85 24 161/71 97 01/08/21 00:00 98.1 F 96 H 21 173/84 99 01/07/21 23:30 100 H 21 195/90 100 01/07/21 23:13 93 H 20 179/83 99 01/07/21 23:00 95 H 19 179/83 99 01/07/21 22:30 90 20 175/82 99 01/07/21 22:00 92 H 18 172/76 99 01/07/21 21:30 91 H 18 163/77 99 01/07/21 21:00 86 15 158/84 99 01/07/21 20:31 93 H 18 190/88 99 01/07/21 20:00 98.7 F 92 H 88 19 185/83 99 01/07/21 19:53 100 H 23 136/78 99 01/07/21 19:30 95 H 20 179/83 99 01/07/21 19:00 95 H 20 169/82 99 01/07/21 18:30 98 H 17 157/80 99 01/07/21 18:00 114 H 12 161/93 97 01/07/21 17:30 102 H 15 149/81 97 01/07/21 17:00 90 15 175/86 95 01/07/21 16:30 91 H 18 160/75 100 01/07/21 16:00 93 H 102 H 19 143/74 100 01/07/21 15:36 89 22 141/73 100 01/07/21 15:30 88 20 141/73 100 01/07/21 15:00 98.4 F 93 H 21 144/72 99 01/07/21 14:30 94 H 20 129/72 99 01/07/21 14:00 90 22 137/67 98 01/07/21 13:30 90 22 143/68 99 01/07/21 13:00 94 H 22 150/71 99 01/07/21 12:48 93 H 23 146/74 99 01/07/21 12:30 93 H 25 H 146/74 99 01/07/21 12:00 98.7 F 94 H 16 144/71 99 - Physical Examination General: Other (OW,,,SOMNULENT) HEENT: Positive: PERRL Neck: Positive: neck supple Cardiac: Positive: Reg Rate and Rhythm Lungs: Positive: clear to auscultation Neuro: Positive: Weakness (Sedated, on the vent) Abdomen: Positive: Soft, Other (POST OP) Skin: Positive: Clear Extremities: Present: normal. Absent: edema - Labs and Meds Cardiac Enzymes 01/08/21 Range/Units 04:34 AST 30 (5-40) units/L Comprehensive Metabolic Panel 01/08/21 Range/Units 04:34 Sodium 139 (137-145) mmol/L Potassium 3.9 (3.6-5.0) mmol/L Chloride 100.7 (98-107) mmol/L Carbon Dioxide 20 L (22-30) mmol/L BUN 93 H (9-20) mg/dL Creatinine 8.8 H (0.8-1.3) mg/dL Glucose 120 H (75-100) mg/dL Calcium 8.7 (8.4-10.2) mg/dL AST 30 (5-40) units/L ALT 29 (7-56) units/L Alkaline Phosphatase 133 H (35-129) units/L Total Protein 5.4 L (6.3-8.2) g/dL Albumin 1.9 L (3.9-5) g/dL - Allied health notes Allied health notes reviewed: nursing
[2021-01-08] MEDS ORDERED: cloNIDine TTS 0.1 MG/24 HR PATCH TD SCH (12:57)
[2021-01-08] MEDS: carvediloL 12.5 MG TAB PO SCH ×2 (13:44→21:21)
[2021-01-08] MEDS: hydrALAZINE 25 MG TAB PO SCH ×2 (13:45→21:21)
--- NOTE | 2021-01-08 15:24 | Progress Note ---
Assessment and Plan POD#15 s/p ex lap with extensive lysis of adhesions and two small bowel resections with primary anastamosis for SBO with necrotic segment small bowel. POD#6 s/p ex lap, resection of perforated anastamosis, washout and abthera wound vac placement. POD#4 s/p ex lap with right hemicolectomy. POd#2 s/p ex lap, with jejunal-colonic anastamosis and closure of abdomen. Afebrile and stable. - post op ileus. Continue PPN - await return of bowel function. Continue NGT decompression. Wound care evaluation for wound vac. Subjective Date of service: 01/08/21 Patient Reports: Positive: bowel movement Narrative: Pt self extubated last night. no acute events. Pt currently sleeping deeply after getting a dose of haldol for agitation. Pt arousable and denies pain. Objective Vital Signs - 12hr 01/08/21 01/08/21 01/08/21 03:30 04:00 04:30 Temperature 98.6 F Pulse Rate 88 87 86 Pulse Rate [ 81 From Monitor] Respiratory 18 22 19 Rate Blood Pressure 178/77 173/79 181/79 O2 Sat by Pulse 97 97 98 Oximetry 01/08/21 01/08/21 01/08/21 05:01 05:30 06:00 Temperature Pulse Rate 86 89 88 Pulse Rate [ From Monitor] Respiratory 18 20 19 Rate Blood Pressure 173/75 166/79 O2 Sat by Pulse 98 97 Oximetry 01/08/21 01/08/21 01/08/21 06:31 07:00 07:31 Temperature Pulse Rate 87 85 96 H Pulse Rate [ From Monitor] Respiratory 19 20 21 Rate Blood Pressure 174/70 179/77 198/88 O2 Sat by Pulse 98 Oximetry 01/08/21 01/08/21 01/08/21 08:00 08:30 09:00 Temperature 99.3 F Pulse Rate 85 83 87 Pulse Rate [ 84 From Monitor] Respiratory 19 19 20 Rate Blood Pressure 188/77 195/84 192/83 O2 Sat by Pulse 99 99 99 Oximetry 01/08/21 01/08/21 01/08/21 09:01 09:26 09:30 Temperature Pulse Rate 88 91 H Pulse Rate [ From Monitor] Respiratory 21 Rate Blood Pressure 202/80 190/76 O2 Sat by Pulse 99 98 Oximetry 01/08/21 01/08/2121 09:33 10:00 10:30 Temperature Pulse Rate 88 79 79 Pulse Rate [ From Monitor] Respiratory 17 19 Rate Blood Pressure 190/76 170/65 185/71 O2 Sat by Pulse 98 98 Oximetry 01/08/21 01/08/21 01/08/21 11:00 11:30 12:00 Temperature 98.6 F Pulse Rate 85 83 84 Pulse Rate [ 84 From Monitor] Respiratory 18 18 18 Rate Blood Pressure 187/79 191/80 179/76 O2 Sat by Pulse 98 98 98 Oximetry 01/08/21 01/08/21 01/08/21 12:30 13:00 13:30 Temperature Pulse Rate 84 85 85 Pulse Rate [ From Monitor] Respiratory 19 18 17 Rate Blood Pressure 184/80 194/83 196/82 O2 Sat by Pulse 98 99 98 Oximetry 01/08/21 01/08/21 01/08/21 13:42 13:44 13:50 Temperature Pulse Rate 86 86 81 Pulse Rate [ From Monitor] Respiratory Rate Blood Pressure 196/82 196/82 181/81 O2 Sat by Pulse Oximetry 01/08/21 14:00 Temperature Pulse Rate 82 Pulse Rate [ From Monitor] Respiratory 18 Rate Blood Pressure 180/78 O2 Sat by Pulse 98 Oximetry - General physical appearance well developed, well nourished, no distress, no pain - Respiratory normal expansion, normal respiratory effort - Abdomen soft, distended, other (incision vac in place with sero-sangiouns drainage. 300cc bilious drainage from NGT this morning, HARIS drain with SS fluid as well.) - Labs 01/07/21 08:37 01/08/21 04:34 Diabetes panel 01/08/21 Range/Units 04:34 Sodium 139 (137-145) mmol/L Potassium 3.9 (3.6-5.0) mmol/L Chloride 100.7 (98-107) mmol/L Carbon Dioxide 20 L (22-30) mmol/L BUN 93 H (9-20) mg/dL Creatinine 8.8 H (0.8-1.3) mg/dL Glucose 120 H (75-100) mg/dL Calcium 8.7 (8.4-10.2) mg/dL AST 30 (5-40) units/L ALT 29 (7-56) units/L Alkaline Phosphatase 133 H (35-129) units/L Total Protein 5.4 L (6.3-8.2) g/dL Albumin 1.9 L (3.9-5) g/dL Calcium panel 01/08/21 Range/Units 04:34 Calcium 8.7 (8.4-10.2) mg/dL Phosphorus 3.70 (2.5-4.5) mg/dL Albumin 1.9 L (3.9-5) g/dL Pituitary panel 01/08/21 Range/Units 04:34 Sodium 139 (137-145) mmol/L Potassium 3.9 (3.6-5.0) mmol/L Chloride 100.7 (98-107) mmol/L Carbon Dioxide 20 L (22-30) mmol/L BUN 93 H (9-20) mg/dL Creatinine 8.8 H (0.8-1.3) mg/dL Glucose 120 H (75-100) mg/dL Calcium 8.7 (8.4-10.2) mg/dL Adrenal panel 01/08/21 Range/Units 04:34 Sodium 139 (137-145) mmol/L Potassium 3.9 (3.6-5.0) mmol/L Chloride 100.7 (98-107) mmol/L Carbon Dioxide 20 L (22-30) mmol/L BUN 93 H (9-20) mg/dL Creatinine 8.8 H (0.8-1.3) mg/dL Glucose 120 H (75-100) mg/dL Calcium 8.7 (8.4-10.2) mg/dL Total Bilirubin 0.90 (0.1-1.2) mg/dL AST 30 (5-40) units/L ALT 29 (7-56) units/L Alkaline Phosphatase 133 H (35-129) units/L Total Protein 5.4 L (6.3-8.2) g/dL Albumin 1.9 L (3.9-5) g/dL
--- NOTE | 2021-01-08 16:10 | Event Note ---
Date: 01/07/21 - Self extubated - O2 sats 94% on room air - work of breathing unlabored - mild to moderate oropharyngeal secretions - responds appropriately and hemodynamically stable A&P: - get BIPAP to bedside and use prn - Robinul 0.2 mg IV X 1 re: oropharyngeal secretions - get stat ABG to assess ventilation - no acute indication for emergenty re-intubation
[2021-01-08] MEDS: ENALAPRILAT 2.5 MG/2 ML INJ IV SCH (17:10)
[2021-01-08] MEDS: diphenhydrAMINE 50 MG/ML VIAL IV SCH (18:38)
[2021-01-08] MEDS: methylPREDNISolone Sod Succinate 40 MG/1 ML INJ IV SCH (18:38)
[2021-01-08] MEDS ORDERED: TOTAL PARENTERAL NUTRITION 2,016 ML IV SCH (20:00)
--- NOTE | 2021-01-08 20:50 | Progress Note ---
Assessment and Plan Assessment: - ESRD on peritoneal dialysis. He has been on peritoneal dialysis for 2 years with no history of peritonitis. - s/p ex-lap with jejuno-ileal anastamosis - s/p ex lap with extensive lysis of adhesions and two small bowel resections with primary anastamosis for SBO with necrotic segment small bowel. - s/p ex lap, resection of perforated anastamosis, washout and abthera wound vac placement. - s/p ex lap with right hemicolectomy. - respiratory failure, s/p self-extubation - severe sepsis - resolved - gram positive cocci bacteremia - resolved - Septic shock- resolved - Hyperkalemia - Anemia of ESRD - Hyperglycemia - Postoperative ileus - a-fib, new onset Plan: - transitioned to HD, continue HD MWF, no indication for HD today - appreciate vascular for permacath placement LIJ on 12/27; pulm removed RIJ vascath 12/28 - s/p ex lap, now off PD, will not be able to continue pd with adhesion and sbo s/p resection - plans for OR today after HD - uf as tolerated with HD - will need outpatient hd placement once stable - Hold binders and sensipar - strict i/os - keep MAP >65 - continue albumin IV - monitor electrolytes daily - appreciate multidisplinary approach to care from surgery, ID, pulm input - a-fib management per cardiology Subjective Date of service: 01/08/21 Principal diagnosis: Ac hypoxemic resp failure; Severe Sepsis; Peritonitis; Acute SBO; ESRD; CHF Interval history: Patient self extubated last night. Objective - Exam Narrative Exam: General appearance: NAD, intubated Eyes: anicteric sclerae HENT: Normocephalic, Atraumatic Neck: supple, tracheal midline, no JVD Lungs: Intubated. Mechanical breath sounds. CV: Tachycardic Abdomen: Soft Midline surgical wound with Wound VAC Extremities: no edema, no cyanosis Skin: No rash. Psych: Calm Neuro: Able to follow commands - Vital Signs Vital signs: Vital Signs - 12hr 01/08/21 01/08/21 01/08/21 09:00 09:01 09:26 Temperature Pulse Rate 87 88 Pulse Rate [ From Monitor] Respiratory 20 Rate Blood Pressure 192/83 202/80 O2 Sat by Pulse 99 99 Oximetry 01/08/21 01/08/21 01/08/21 09:30 09:33 10:00 Temperature Pulse Rate 91 H 88 79 Pulse Rate [ From Monitor] Respiratory 21 17 Rate Blood Pressure 190/76 190/76 170/65 O2 Sat by Pulse 98 98 Oximetry 01/08/21 01/08/21 01/08/21 10:30 11:00 11:30 Temperature Pulse Rate 79 85 83 Pulse Rate [ From Monitor] Respiratory 19 18 18 Rate Blood Pressure 185/71 187/79 191/80 O2 Sat by Pulse 98 98 98 Oximetry 01/08/21 01/08/21 01/08/21 12:00 12:30 13:00 Temperature 98.6 F Pulse Rate 85 84 85 Pulse Rate [ 84 From Monitor] Respiratory 18 19 18 Rate Blood Pressure 179/76 184/80 194/83 O2 Sat by Pulse 98 98 99 Oximetry 01/08/21 01/08/21 01/08/21 13:30 13:42 13:44 Temperature Pulse Rate 85 86 86 Pulse Rate [ From Monitor] Respiratory 17 Rate Blood Pressure 196/82 196/82 196/82 O2 Sat by Pulse 98 Oximetry 01/08/21 01/08/21 01/08/21 13:50 14:00 14:30 Temperature Pulse Rate 81 82 84 Pulse Rate [ From Monitor] Respiratory 18 19 Rate Blood Pressure 181/81 180/78 190/78 O2 Sat by Pulse 98 98 Oximetry 01/08/21 01/08/21 01/08/21 15:00 15:30 16:00 Temperature 98.2 F Pulse Rate 81 85 85 Pulse Rate [ 85 From Monitor] Respiratory 19 19 21 Rate Blood Pressure 172/82 194/81 184/85 O2 Sat by Pulse 98 98 96 Oximetry 01/08/21 01/08/21 01/08/21 16:30 17:00 17:10 Temperature Pulse Rate 81 82 85 Pulse Rate [ From Monitor] Respiratory 21 21 Rate Blood Pressure 193/82 174/90 174/90 O2 Sat by Pulse 98 98 Oximetry 01/08/21 01/08/21 01/08/21 17:30 18:00 18:17 Temperature Pulse Rate 72 77 83 Pulse Rate [ From Monitor] Respiratory 18 19 Rate Blood Pressure 160/76 157/74 178/79 O2 Sat by Pulse 99 99 Oximetry 01/08/21 01/08/21 01/08/21 18:30 19:00 19:31 Temperature Pulse Rate 73 79 81 Pulse Rate [ From Monitor] Respiratory 20 19 20 Rate Blood Pressure 178/79 181/82 190/87 O2 Sat by Pulse 99 99 99 Oximetry 01/08/21 01/08/21 20:00 20:30 Temperature 98.8 F Pulse Rate 83 81 Pulse Rate [ From Monitor] Respiratory 23 20 Rate Blood Pressure 170/94 201/93 O2 Sat by Pulse 98 98 Oximetry - Lab 01/07/21 08:37 01/08/21 04:34 Most recent lab results ABG pH 7.345 pH Units (7.350-7.450) L 01/07/21 17:14 ABG pCO2 40.3 mm Hg 01/07/21 17:14 ABG pO2 67.4 mm Hg (80.0-90.0) L 01/07/21 17:14 ABG HCO3 21.5 mmol/L (20.0-26.0) 01/07/21 17:14 ABG O2 Saturation 94.3 % (95.0-99.0) L 01/07/21 17:14 Calcium 8.7 mg/dL (8.4-10.2) 01/08/21 04:34 Phosphorus 3.70 mg/dL (2.5-4.5) 01/08/21 04:34 Magnesium 2.00 mg/dL (1.7-2.3) 01/08/21 04:34 Medications & Allergies - Medications Allergies/Adverse Reactions: Allergies No Known Allergies Allergy (Verified 06/09/20 15:27) Home Medications: Home Medications Medication Instructions Recorded Confirmed Last Taken Type Albuterol Mdi (or & Nicu Only) 2 puff IH QID PRN #1 inhalation 04/01/17 11/01/20 10/31/20 09:00 Rx [ProAir HFA Inhaler] Calcium Acetate 667 mg PO DAILY 04/20/20 11/01/20 10/31/20 09:00 History Centrum Men's Tablet 1 tab PO DAILY 04/20/20 11/01/20 10/31/20 09:00 History Cinacalcet 30 mg PO DAILY 04/20/20 11/01/20 10/31/20 09:00 History Dialyvite with Zinc Tablet 1 tab PO DAILY 04/20/20 11/01/20 10/31/20 09:00 History Magnesium 250 mg PO BID 04/20/20 11/01/20 10/31/20 17:00 History Triamcinolone 0.1% 1 1000units TRANSDERMA DAILY 04/20/20 11/01/20 10/31/20 09:00 History Vit B12/Folic Acid/B6/Aa No.15 1,000 mg PO DAILY 04/20/20 11/01/20 10/31/20 09:00 History amLODIPine 10 mg PO DAILY 06/09/20 11/01/20 10/31/20 09:00 History AtorvaSTATin 40 mg PO HS 11/01/20 11/01/20 10/31/20 21:00 History Benadryl 25 mg PO HS 11/01/20 11/01/20 10/31/20 21:00 History Diclofenac 1 TRANSDERMA QID 11/01/20 10/31/20 19:00 History Fluticasone Propionate 1 spray INTRANASAL DAILY 11/01/20 11/01/20 10/31/20 09:00 History Vitamin D3 2,000 units 11/01/20 10/31/20 09:00 History carvediloL 12.5 mg PO DAILY 11/01/20 11/01/20 10/31/20 09:00 History hydrALAZINE 100 mg PO TID 11/01/20 11/01/20 10/31/20 19:00 History Active Medications: Generic Name Dose Route Start Last Admin Trade Name Freq PRN Reason Stop Dose Admin Acetaminophen 650 mg 12/31/20 15:30 12/31/20 15:13 Acetaminophen 650 Mg Rect Supp MA 650 mg Q6H PRN Administration Non Cardiac Pain or Temp>100.5 Carvedilol 12.5 mg 01/08/21 13:00 01/08/21 13:44 Carvedilol 12.5 Mg Tab PO Not Given BID THOMAS Clonidine HCl 0.1 mg 01/08/21 12:57 01/08/21 13:50 Clonidine Tts 0.1 Mg/24 Hr Patch TD 0.1 mg Q3D THOMAS Administration Digoxin 0.125 mg 12/31/20 10:00 01/08/21 11:55 Digoxin 0.5 Mg/2 Ml Inj IV Not Given Q48HR THOMAS Diphenhydramine HCl 25 mg 01/08/21 18:23 01/08/21 18:38 Diphenhydramine 50 Mg/Ml Vial IV 25 mg BID THOMAS Administration Enalaprilat 1.25 mg 01/08/21 17:00 01/08/21 17:10 Enalaprilat 2.5 Mg/2 Ml Inj IV 01/11/21 16:59 1.25 mg Q8H THOMAS Administration Famotidine 10 mg 12/24/20 13:00 01/08/21 09:26 Famotidine 20 Mg/2 Ml Inj IV 10 mg BID THOMAS Administration Fentanyl 50 mcg 12/24/20 11:35 01/08/21 07:41 Fentanyl 100 Mcg/2 Ml Inj IV 50 mcg Q10MIN PRN Administration ANALGESIA Haloperidol Lactate 5 mg 12/29/20 14:16 01/08/21 09:32 Haloperidol Lactate 5 Mg/1 Ml Inj IV 5 mg Q12H PRN Administration Agitation Heparin Sodium (Porcine) 5,000 unit 12/24/20 10:00 01/08/21 09:34 Heparin 5,000 Unit/1 Ml Vial SUB-Q 5,000 unit Q12HR THOMAS Administration Hydralazine HCl 50 mg 01/08/21 14:00 01/08/21 13:45 Hydralazine 25 Mg Tab PO Not Given Q8HR THOMAS Hydrophilic Ointment 1 applic 12/31/20 06:39 Lip Therapy Vaseline TP Q2HR PRN Dry Lips Sodium Chloride 100 mls @ 999 mls/hr 12/23/20 11:03 Nacl 0.9% IV [place] PRN Hypotension Fentanyl Citrate 2,000 mcg in 100 mls @ 4.725 mls/hr 12/31/20 08:00 01/07/21 17:18 Fentanyl Drip Premix IV 0 mcg/kg/hr TITR THOMAS 0 mls/hr Titration Protocol 1 MCG/KG/HR NORepinephrine/NS 8 MG-250 ML 8 mg in 250 mls @ 3.75 mls/hr 12/31/20 09:00 01/03/21 08:30 Norepinephrine/Ns 8 Mg-250 Ml (Double Conc) IV 0 mcg/min TITRATE THOMAS 0 mls/hr Titration Protocol 2 MCG/MIN Vasopressin 20 unit/ Sodium 101 mls @ 9.09 mls/hr 12/31/20 21:00 01/02/21 21:13 Chloride IV 0 units/min TITR THOMAS 0 mls/hr Titration Protocol 0.03 UNITS/MIN Phenylephrine HCl 100 mg/ 100 mls @ 3 mls/hr 12/31/20 23:45 01/01/21 18:30 Sodium Chloride IV 0 mcg/min TITR THOMAS 0 mls/hr Titration Protocol 50 MCG/MIN Sodium Chloride 500 mls @ 0 mls/hr 01/03/21 17:03 Nacl 0.9% 500 Ml IV ONCE THOMAS As Directed Amino Acids/Electrolytes/Dextrose 2,016 mls @ 84 mls/hr 01/08/21 20:00 Tpn Adult IV 01/09/21 19:59 DAILY@1999 [facility] Protocol Insulin Glargine 10 units 01/03/21 10:00 01/08/21 09:34 Insulin Glargine 100 Units/Ml SUB-Q 10 units DAILY THOMAS Administration Insulin Human Lispro 0 unit 01/03/21 12:00 01/08/21 18:16 Insulin Lispro 100 Unit/Ml SUB-Q Not Given Q6HR [facility] Protocol Methylprednisolone Sodium Succinate 40 mg 01/08/21 18:23 01/08/21 18:38 Methylprednisolone Sod Succinate 40 Mg/1 Ml Inj IV 40 mg Q8H THOMAS Administration Metoprolol Tartrate 5 mg 12/30/20 12:00 01/08/21 18:17 Metoprolol Tartrate 5 Mg/5 Ml Inj IV 5 mg Q4HR THOMAS Administration Multi-Ingred Cream/Lotion/Oil/Oint 1 applic 12/31/20 06:39 Mineral Oil/Petrolatum, White Ophth Oint 3.5 Gm OU Q4HR PRN Dry Eye(s) Scopolamine 1 each 01/07/21 18:01 01/07/21 17:21 Scopolamine Transdermal Patch 72 Hr TD 1 each Q3D THOMAS Administration Sodium Chloride 10 ml 12/22/20 22:00 01/08/21 09:34 Sodium Chloride 0.9% 10 Ml Flush Syringe IV 10 ml BID THOMAS Administration Sodium Chloride 10 ml 12/22/20 19:42 Sodium Chloride 0.9% 10 Ml Flush Syringe IV PRN PRN LINE FLUSH
[2021-01-09] MEDS: INSULIN LISPRO 100 UNIT/ML SUB-Q SCH ×5 (00:01→17:35)
[2021-01-09] MEDS: ENALAPRILAT 2.5 MG/2 ML INJ IV SCH ×3 (01:09→17:34)
[2021-01-09] MEDS: fentaNYL 100 MCG/2 ML INJ IV PRN (01:10)
[2021-01-09] MEDS: METOPROLOL TARTRATE 5 MG/5 ML INJ IV SCH ×6 (01:10→22:03)
[2021-01-09] MEDS: HALOPERIDOL LACTATE 5 MG/1 ML INJ IV PRN (01:41)
[2021-01-09] MEDS: methylPREDNISolone Sod Succinate 40 MG/1 ML INJ IV SCH ×3 (02:14→19:09)
[2021-01-09] MEDS: hydrALAZINE 25 MG TAB PO SCH (05:36)
[2021-01-09 05:51] LABS: Calcium 9.2 mg/dL (8.4-10.2)
[2021-01-09] MEDS ORDERED: hydrALAZINE 20 MG/1 ML INJ IV PRN (09:10)
--- NOTE | 2021-01-09 09:13 | Progress Note ---
<MARINICKIE H. - Last Filed: 01/09/21 19:28> Assessment and Plan Assessment and plan: This is a 60-year-old male with ESRD on peritoneal dialysis, Crohn's, hypertension, systolic CHF (EF 35%) who was admitted with sepsis, peritonitis, small bowel obstruction and treptococcus bovis bacteremia/Prevotella bacteremia Severe Sepsis with shock Streptococcus bovis bacteremia/Prevotella bacteremia Gwendolyn albicans tracheal aspirate Small bowel obstruction/necrotic bowel s/p ex lap with extensive lysis of adhesions, 2 small bowel resections with primary anastomosis, right hemicolectomy, jejunal colonic anastomosis, segmental small bowel resection Acute hypoxic respiratory failure Postoperative ileus Atrial fibrillation with RVR Hyperkalemia Gwendolyn albicans in tracheal aspirate from 12/24 ESRD on PD, PermCath to be placed Transaminitis Systolic CHF(EF 35%) Crohn's disease Hypertension -[facility], surgery, infectious disease, nephrology, vascular surgery, cardiology consulted, appreciate recommendations -S/p ex lap with extensive expectations, 2 small bowel resections with primary anastomosis with surgery on 12/23 -s/p PICC and Permacath placement with vascular surgery on 12/27 -Extubated on 12/28, reintubated 12/31 for respiratory distress and extubated 01/08 -12/29 echocardiogram shows moderate concentric LVH, small pericardial effusion, transmitral Doppler flow pattern is grade 1 abnormal relaxation pattern, left-ventricular systolic function normal, LVEF 50 to 55%, no wall motion abnormalities. -01/01 CT abdomen/pelvis shows small pericardial effusion, mild coronary artery atherosclerotic calcification, small bilateral pleural effusions with associated volume loss, no convincing evidence of bowel obstruction or inflammation, postoperative changes from interval/recent midline laparotomy with a moderate amount of free fluid throughout the abdomen, small amount of dependent free air presumably postoperative -01/01 s/p ex lap, resection of perforated anastamosis, washout and abthera wound vac placement. -01/05 s/p ex lap with right hemicolectomy. -01/08 s/p exploratory laparotomy, Jejunal colonic anastomosis, Segmental small bowel resection. -s/p Vasopressor support with Levophed and vasopressin -Transitioned to HD from PD -HD per nephro -NPO -TPN -NGT to LIS -s/p IV antibiotics -Tobacco abuse cessation counseling -Trend CBC, BMP DVT/GI prophylaxis: PPI, heparin subcu, SCDs to bilateral lower extremities while in bed Disposition: ICU Critical care statement The high probability of a clinically significant, sudden or life threatening deterioration of the [pulmonary, cardiac, neuro, renal] system(s) required my full and direct attention, intervention and personal management. The aggregate critical care time was [35] minutes. This time is in addition to time spent performing reported procedures but includes the following: [x] Data Review and interpretation [x] Patient assessment and monitoring of vital signs [x] Documentation [x] Medication orders and management History Interval history: This is a 60 YO Male with ESRD on PD, GERD, Crohn's Disease, Nicotine Dependence, HTN, Systolic CHF(EF 35%) who presented to the emergency department on 12/22 with complaints of abdominal pain which began shortly after eating fast food rated 10/10 which is periumbilical, constant, associated with fever, nausea and multiple sites of vomiting and self-reported inability to undergo PD. In the emergency room patient underwent a CT scan of the abdomen/pelvis which revealed evidence of partial small bowel obstruction, symptoms were consistent with bacterial peritonitis. Patient was admitted to the hospital service with sepsis, peritonitis, and small bowel obstruction with consults to general surgery, nephrology, infectious disease and [facility]. 12/23. Patient had temperature 101.2 F, tachycardia and elevated lactic acid on admission. Meet sepsis criteria. Started on IV antibiotics. ID has been consulted. Surgery consulted this a.m.-advised laparoscopy. He remains on NG tube connected to suction. 12/24. Patient was noted to have peritonitis yesterday and patient undergoing exploratory laparotomy. Patient remained intubated after procedure and is in ICU. Now on broad-spectrum antibiotics. ID on board. 12/25. Remains mechanically ventilated and sedated. Temp 103 Fahrenheit. Antibiotics broadened-ID added fluconazole and Flagyl. Blood cultures ordered. Plan to repeat CT abdomen tomorrow if not better. Surgery following. 12/26: Patient remains on mechanical ventilation on CMV tidal line 550, rate of 14, PEEP of 8 and 30% FiO2 and sedated on fentanyl 4 micrograms. Today we will remove his Jeffery and [facility] dropped his rate controlled him on CPAP. We will trend CBC given recent drop in H/H. 12/27: Patient remains intubated on CMV tidal volume 550, rate 12, PEEP 8 on 30% FiO2 at the time my examination. Patient's TPN will be changed to PPN. Patient's fentanyl drip will be changed to IV push fentanyl and have a permacath placed today and midline. Patient was placed on a spontaneous breathing trial was switched back to CMV prior to procedure. 12/28: Patient on fentanyl but awake and follows commands. At the time of my examination he was on a CPAP trial and is scheduled to receive HD today. s/o p ermacath and PICC placement with vascular yesterday. His blood culture grew Prevotella and addition to Streptococcus bovis. This evening Dr. Spicer attempted to extubate the patient and his heart rate went to the 180s. Stat EKG obtained and cardiology consulted. 12/29: Patient was started on amiodarone IV for A. fib RVR yesterday and today he is more rate controlled into the 70s and 80s. Patient was extubated yesterday and is currently on Ventimask. Patient will be transferred to IM. Patient continues to be n.p.o. with TPN and NG tube to LIS. He is hypokalemic today which was repleted. 12/30; patient was on IV amiodarone for treatment with RVR, rate is controlled. Patient was off oxygen. patient is n.p.o. and on TPN. Surgery is following the patient. 12/31: Patient was intubated overnight for respiratory distress and this morning on examination he was on assist control tidal volume 450, rate 20, PEEP 6, 100% FiO2 and RT was getting a ABG to adjust vent settings. Patient had a acute bump in WBC and per ID recommendations we will obtain a CT abdomen/pelvis if leukocytosis persist. Patient is on TPN and sedated with Levophed. Patient is also on vasopressor support with Levophed. Per surgery his ileus is resolving however will maintain OGT to LIWS. 01/01: Patient was started on a vasopressin yesterday late evening. This morning patient is on 20 mcg of Levophed and 0.03 vasopressin and sedated on 20 mcg of propofol. Patient WBC increased today and he is hypokalemic. We will treat hyperkalemia. Patient had a CT chest and abdomen/pelvis pending. The time examination total of 450, rate 20, PEEP of 6 and 35 percent FiO2. Per RN, Dr Pollock has stated that the patient will be returning to the OR today for likely anastomosis seen on CT abdomen/pelvis. This is a 60 YO Male with ESRD on PD, GERD, Crohn's Disease, Nicotine Dependence, HTN, Systolic CHF(EF 35%) who presented to the emergency department on 12/22 with complaints of abdominal pain which began shortly after eating fast food rated 10/10 which is periumbilical, constant, associated with fever, nausea and multiple sites of vomiting and self-reported inability to undergo PD. In the emergency room patient underwent a CT scan of the abdomen/pelvis which revealed evidence of partial small bowel obstruction, symptoms were consistent with bacterial peritonitis. Patient was admitted to the hospital service with sepsis, peritonitis, and small bowel obstruction with consults to general hernandez rgery, nephrology, infectious disease and [facility]. 12/23. Patient had temperature 101.2 F, tachycardia and elevated lactic acid on admission. Meet sepsis criteria. Started on IV antibiotics. ID has been consulted. Surgery consulted this a.m.-advised laparoscopy. He remains on NG tube connected to suction. 12/24. Patient was noted to have peritonitis yesterday and patient undergoing exploratory laparotomy. Patient remained intubated after procedure and is in ICU. Now on broad-spectrum antibiotics. ID on board. 12/25. Remains mechanically ventilated and sedated. Temp 103 Fahrenheit. Ant ibiotics broadened-ID added fluconazole and Flagyl. Blood cultures ordered. Plan to repeat CT abdomen tomorrow if not better. Surgery following. 12/26: Patient remains on mechanical ventilation on CMV tidal line 550, rate of 14, PEEP of 8 and 30% FiO2 and sedated on fentanyl 4 micrograms. Today we will remove his Jeffery and [facility] dropped his rate controlled him on CPAP. We will trend CBC given recent drop in H/H. 12/27: Patient remains intubated on CMV tidal volume 550, rate 12, PEEP 8 on 30% FiO2 at the time my examination. Patient's TPN will be changed to PPN. Patient's fentanyl drip will be changed to IV push fentanyl and have a permacath placed today and midline. Patient was placed on a spontaneous breathing trial was switched back to CMV prior to procedure. 12/28: Patient on fentanyl but awake and follows commands. At the time of my examination he was on a CPAP trial and is scheduled to receive HD today. s/o permacath and PICC placement with vascular yesterday. His blood culture grew Prevotella and addition to Streptococcus bovis. This evening Dr. Spicer attempted to extubate the patient and his heart rate went to the 180s. Stat EKG obtained and cardiology consulted. 12/29: Patient was started on amiodarone IV for A. fib RVR yesterday and today he is more rate controlled into the 70s and 80s. Patient was extubated yesterday and is currently on Ventimask. Patient will be transferred to [facility]. Patient continues to be n.p.o. with TPN and NG tube to LIS. He is hypokalemic today which was repleted. 12/30; patient was on IV amiodarone for treatment with RVR, rate is controlled. Patient was off oxygen. patient is n.p.o. and on TPN. Surgery is following the patient. 12/31: Patient was intubated overnight for respiratory distress and this morning on examination he was on assist control tidal volume 450, rate 20, PEEP 6, 100% FiO2 and RT was getting a ABG to adjust vent settings. Patient had a acute bump in WBC and per ID recommendations we will obtain a CT abdomen/pelvis if leukocytosis persist. Patient is on TPN and sedated with Levophed. Patient is also on vasopressor support with Levophed. Per surgery his ileus is resolving however will maintain OGT to LIWS. 01/01: Patient was started on a vasopressin yesterday late evening. This morning patient is on 20 mcg of Levophed and 0.03 vasopressin and sedated on 20 mcg of propofol. Patient WBC increased today and he is hypokalemic. We will treat hyperkalemia. Patient had a CT chest and abdomen/pelvis pending. The time examination total of 450, rate 20, PEEP of 6 and 35 percent FiO2. Per RN, Dr Pollock has stated that the patient will be returning to the OR today for likely anastomosis seen on CT abdomen/pelvis. 01/02: Patient noted, WBC improving, but noted to have anemia, will transfuse additional unit of Blood and repeat H/H. continue supportive care. 01/03: Continue to wean pressors, ABX PER ID, patient to return to OR today for washout and possible closure, CONTINUE TPN 01/04: Continues to show some improvement. Today is POD#12 s/p ex lap with extensive lysis of adhesions and two small bowel resections with primary anastamosis for SBO with necrotic segment small bowel. POD#3 s/p ex lap, resection of perforated anastamosis, washout and abthera wound vac placement. PO D#1 s/p ex lap with right hemicolectomy. Surgery planning to take back to the OR on Saturday with the hope to anastamos ileum to transverse colon and close abdomen. keep NGT to suction. Pt in deep sedation due to open abdomen. Per ID - Continue IV Zosyn, renally dosed for Strep bacteremia treatment till 01/06/2021 -On TPN 01/05: Patient continues on HD, anticipate return to OR tomorrow for closure and anastemosis. Continues with deep sedation due to open abdomen 01/06: Continue supportive care, monitor pressures and electrolytes. He is post op Exploratory laparotomy, 2. Jejunal colonic anastomosis,3. Segmental small bowel resection and anastemosis closure today. Continue wound vac 01/07: Continue supportive care, Today is POD#15 s/p ex lap with extensive lysis of adhesions and two small bowel resections with primary anastamosis for SBO with necrotic segment small bowel. POD#6 s/p ex lap, resection of perforated anastamosis, washout and abthera wound vac placement. POD#4s/p ex lap with right hemicolectomy.POD #1 exploratory laparotomy, 2. Jejunal colonic anastomosis,3. Segmental small bowel resection. Continue to monitor and correct electrolytes. Patient remains on fentanyl and TPN with lipids. Still hypoactive bowel sounds. 01/08: Patient now extubated, asked when he can go home, Still lethargic. Continue wound management, wound vac, Will need Rehab eval prior to discharge. 01/09: Patient remains on TPN, was started on labetalol drip per cardiology, patient had uncontrolled hypertension today however he cannot be given p.o. medications ileus resolves per surgery. Patient received hemodialysis today. NG tube remains to low intermittent suction. Hospitalist Physical - Constitutional Vitals: Temp Pulse Resp BP Pulse Ox 98.6 F 84 20 192/96 99 01/09/21 08:00 01/09/21 06:00 01/09/21 05:00 01/09/21 06:00 01/09/21 05:30 General appearance: Present: no acute distress, other - EENT Eyes: Present: PERRL, EOM intact ENT: poor dentition - Neck Neck: Present: normal ROM - Respiratory Respiratory effort: normal Respiratory: bilateral: CTA - Cardiovascular Rhythm: irregularly irregular Heart Sounds: Present: S1 & S2. Absent: systolic murmur, diastolic murmur - Extremities Extremities: no ischemia, pulses intact, pulses symmetrical, normal temperature, normal color Peripheral Pulses: within normal limits - Abdominal General gastrointestinal: tender, distended, absent bowel sounds - Integumentary Integumentary: Present: warm, dry - Psychiatric Psychiatric: appropriate mood/affect, cooperative - Neurologic Neurologic: moves all extremities - Allied Health Allied health notes reviewed: nursing, RT HEART Score - HEART Score Troponin: Troponin T 0.021 ng/mL (0.00-0.029) 12/22/20 14:38 Results - Labs CBC & Chem 7: 01/07/21 08:37 01/09/21 05:13 Labs: Laboratory Last Values WBC 12.4 K/mm3 (4.5-11.0) H 01/07/21 08:37 RBC 3.72 M/mm3 (3.65-5.03) 01/07/21 08:37 Hgb 11.1 gm/dl (11.8-15.2) L 01/07/21 08:37 Hct 33.3 % (35.5-45.6) L D 01/07/21 08:37 MCV 90 fl (84-94) 01/07/21 08:37 MCH 30 pg (28-32) 01/07/21 08:37 MCHC 33 % (32-34) 01/07/21 08:37 RDW 17.0 % (13.2-15.2) H 01/07/21 08:37 Plt Count 262 K/mm3 (140-440) 01/07/21 08:37 Lymph % (Auto) 3.2 % (13.4-35.0) L 01/07/21 08:37 [place] % (Auto) 9.4 % (0.0-7.3) H 01/07/21 08:37 Eos % (Auto) 0.4 % (0.0-4.3) 01/07/21 08:37 Baso % (Auto) 0.4 % (0.0-1.8) 01/07/21 08:37 Lymph # (Auto) 0.4 K/mm3 (1.2-5.4) L 01/07/21 08:37 [place] # (Auto) 1.2 K/mm3 (0.0-0.8) H 01/07/21 08:37 Eos # (Auto) 0.1 K/mm3 (0.0-0.4) 01/07/21 08:37 Baso # (Auto) 0.1 K/mm3 (0.0-0.1) 01/07/21 08:37 Add Manual Diff Complete 01/01/21 17:58 Total Counted 100 01/01/21 17:58 Seg Neutrophils % 86.6 % (40.0-70.0) H 01/07/21 08:37 Seg Neuts % (Manual) 84.0 % (40.0-70.0) H 01/01/21 17:58 Band Neutrophils % 1.0 % 12/29/20 05:16 Lymphocytes % (Manual) 4.0 % (13.4-35.0) L 01/01/21 17:58 Reactive Lymphs % (Man) 1.0 % 12/29/20 05:16 Monocytes % (Manual) 12.0 % (0.0-7.3) H 01/01/21 17:58 Eosinophils % (Manual) 2.0 % (0.0-4.3) 12/29/20 05:16 Metamyelocytes % 2.0 % 12/29/20 05:16 Nucleated RBC % Not Reportable 01/01/21 17:58 Seg Neutrophils # 10.7 K/mm3 (1.8-7.7) H 01/07/21 08:37 Seg Neutrophils # Man 22.6 K/mm3 (1.8-7.7) H 01/01/21 17:58 Band Neutrophils # 0.0 K/mm3 01/01/21 17:58 Lymphocytes # (Manual) 1.1 K/mm3 (1.2-5.4) L 01/01/21 17:58 Abs React Lymphs (Man) 0.0 K/mm3 01/01/21 17:58 Monocytes # (Manual) 3.2 K/mm3 (0.0-0.8) H 01/01/21 17:58 Eosinophils # (Manual) 0.0 K/mm3 (0.0-0.4) 01/01/21 17:58 Basophils # (Manual) 0.0 K/mm3 (0.0-0.1) 01/01/21 17:58 Metamyelocytes # 0.0 K/mm3 01/01/21 17:58 Myelocytes # 0.0 K/mm3 01/01/21 17:58 Promyelocytes # 0.0 K/mm3 01/01/21 17:58 Blast Cells # 0.0 K/mm3 01/01/21 17:58 WBC Morphology Not Reportable 01/01/21 17:58 Hypersegmented Neuts Not Reportable 01/01/21 17:58 Hyposegmented Neuts Not Reportable 01/01/21 17:58 Hypogranular Neuts Not Reportable 01/01/21 17:58 Smudge Cells Not Reportable 01/01/21 17:58 Toxic Granulation Not Reportable 01/01/21 17:58 Toxic Vacuolation Not Reportable 01/01/21 17:58 Dohle Bodies Not Reportable 01/01/21 17:58 Pelger-Huet Anomaly Not Reportable 01/01/21 17:58 Lamar Rods Not Reportable 01/01/21 17:58 Platelet Estimate Not Reportable 01/01/21 17:58 Clumped Platelets Not Reportable 01/01/21 17:58 Plt Clumps, EDTA Not Reportable 01/01/21 17:58 Large Platelets Not Reportable 01/01/21 17:58 Giant Platelets Not Reportable 01/01/21 17:58 Platelet Satelliting Not Reportable 01/01/21 17:58 Plt Morphology Comment Not Reportable 01/01/21 17:58 RBC Morphology Normal 01/01/21 17:58 Dimorphic RBCs Not Reportable 01/01/21 17:58 Polychromasia Not Reportable 01/01/21 17:58 Hypochromasia Not Reportable 01/01/21 17:58 Poikilocytosis Not Reportable 01/01/21 17:58 Anisocytosis Not Reportable 01/01/21 17:58 Microcytosis Not Reportable 01/01/21 17:58 Macrocytosis Not Reportable 01/01/21 17:58 Spherocytes Not Reportable 01/01/21 17:58 Pappenheimer Bodies Not Reportable 01/01/21 17:58 Sickle Cells Not Reportable 01/01/21 17:58 Target Cells Not Reportable 01/01/21 17:58 Tear Drop Cells Not Reportable 01/01/21 17:58 Ovalocytes Not Reportable 01/01/21 17:58 Helmet Cells Not Reportable 01/01/21 17:58 [place] Bodies Not Reportable 01/01/21 17:58 [place] Rings Not Reportable 01/01/21 17:58 [place] Cells Not Reportable 01/01/21 17:58 Bite Cells Not Reportable 01/01/21 17:58 Crenated Cell Not Reportable 01/01/21 17:58 Elliptocytes Not Reportable 01/01/21 17:58 Acanthocytes (Spur) Not Reportable 01/01/21 17:58 Rouleaux Not Reportable 01/01/21 17:58 Hemoglobin C Crystals Not Reportable 01/01/21 17:58 Schistocytes Not Reportable 01/01/21 17:58 Malaria parasites Not Reportable 01/01/21 17:58 Lucas Bodies Not Reportable 01/01/21 17:58 Hem Pathologist Commnt No 01/01/21 17:58 PT 16.9 Sec. (12.2-14.9) H 01/01/21 12:45 INR 1.39 (0.87-1.13) H 01/01/21 12:45 APTT 25.1 Sec. (24.2-36.6) 12/22/20 14:38 ABG pH 7.345 pH Units (7.350-7.450) L 01/07/21 17:14 POC ABG pCO2 41.4 mmHg (32.0-48.0) 01/07/21 03:07 ABG pCO2 40.3 mm Hg 01/07/21 17:14 POC ABG pO2 94.5 mmHg (83-108) 01/07/21 03:07 ABG pO2 67.4 mm Hg (80.0-90.0) L 01/07/21 17:14 POC ABG HCO3 22.7 01/07/21 03:07 ABG HCO3 21.5 mmol/L (20.0-26.0) 01/07/21 17:14 ABG O2 Saturation 94.3 % (95.0-99.0) L 01/07/21 17:14 ABG O2 Content 11.6 (0.0-44) 01/07/21 17:14 POC ABG Base Excess -2.7 01/07/21 03:07 ABG Base Excess -3.9 mmol/L (-2.0-3.0) L 01/07/21 17:14 ABG Hemoglobin 8.9 gm/dl (14.0-18.0) L 01/07/21 17:14 ABG Oxyhemoglobin 96.6 (94-98) 01/07/21 03:07 ABG Carboxyhemoglobin 1.5 % (0.0-5.0) 01/07/21 17:14 ABG Methemoglobin 0.6 % (0.0-1.5) 01/07/21 17:14 ABG Sodium 135.6 mmol/L (136.0-145.0) L 01/07/21 03:07 ABG Potassium 4.0 mmol/L (3.40-4.50) 01/07/21 03:07 ABG Chloride 102.0 mmol/L (98-107) 01/07/21 03:07 ABG Glucose 181 mg/dL (65-95) H 01/07/21 03:07 Oxyhemoglobin 92.3 % (95.0-99.0) L 01/07/21 17:14 Carboxyhemoglobin 0.7 (0.5-1.5) 01/07/21 03:07 FiO2 21 % 01/07/21 17:14 FiO2 % 45.0 01/07/21 03:07 Sodium 138 mmol/L (137-145) 01/09/21 05:13 Potassium 4.5 mmol/L (3.6-5.0) 01/09/21 05:13 Chloride 98.4 mmol/L (98-107) 01/09/21 05:13 Carbon Dioxide 16 mmol/L (22-30) L 01/09/21 05:13 Anion Gap 28 mmol/L 01/09/21 05:13 BUN 123 mg/dL (9-20) H 01/09/21 05:13 Creatinine 10.8 mg/dL (0.8-1.3) H 01/09/21 05:13 Estimated GFR 6 ml/min 01/09/21 05:13 BUN/Creatinine Ratio 11 % 01/09/21 05:13 Glucose 145 mg/dL (75-100) H 01/09/21 05:13 POC Glucose 144 mg/dL (70-105) H 01/09/21 05:21 Lactic Acid 1.50 mmol/L (0.7-2.0) 01/02/21 18:00 Calcium 9.2 mg/dL (8.4-10.2) 01/09/21 05:13 Phosphorus 5.00 mg/dL (2.5-4.5) H D 01/09/21 05:13 Magnesium 2.40 mg/dL (1.7-2.3) H 01/09/21 05:13 Total Bilirubin 0.90 mg/dL (0.1-1.2) 01/08/21 04:34 AST 30 units/L (5-40) 01/08/21 04:34 ALT 29 units/L (7-56) 01/08/21 04:34 Alkaline Phosphatase 133 units/L (35-129) H 01/08/21 04:34 Ammonia 30.0 umol/L (25-60) 12/22/20 14:38 Troponin T 0.021 ng/mL (0.00-0.029) 12/22/20 14:38 Total Protein 5.4 g/dL (6.3-8.2) L 01/08/21 04:34 Albumin 1.9 g/dL (3.9-5) L 01/08/21 04:34 Albumin/Globulin Ratio 0.5 % 01/08/21 04:34 Triglycerides 155 mg/dL (2-149) H 12/30/20 09:00 Lipase 41 units/L (13-60) 12/22/20 14:38 Procalcitonin > 200.00 ng/mL (<0.15) 12/24/20 15:06 TSH 1.470 mlU/mL (0.270-4.200) 12/28/20 19:44 Arterial Blood Glucose 181 mg/dL (65-95) H 01/07/21 03:07 Arterial Blood Ionized Calcium 4.3 mg/dL (4.6-5.3) L 01/07/21 03:07 Urine Color Yellow (Yellow) 12/22/20 18:53 Urine Turbidity Clear (Clear) 12/22/20 18:53 Urine pH 7.0 (5.0-7.0) 12/22/20 18:53 Ur Specific [place] 1.012 (1.003-1.030) 12/22/20 18:53 Urine Protein >500 mg/dL (Negative) 12/22/20 18:53 Urine Glucose (UA) Neg mg/dL (Negative) 12/22/20 18:53 Urine Ketones Neg mg/dL (Negative) 12/22/20 18:53 Urine Blood Neg (Negative) 12/22/20 18:53 Urine Nitrite Neg (Negative) 12/22/20 18:53 Urine Bilirubin Neg (Negative) 12/22/20 18:53 Urine Urobilinogen < 2.0 mg/dL (<2.0) 12/22/20 18:53 Ur Leukocyte Esterase Neg (Negative) 12/22/20 18:53 Urine WBC (Auto) < 1.0 /HPF (0.0-6.0) 12/22/20 18:53 Urine RBC (Auto) 1.0 /HPF (0.0-6.0) 12/22/20 18:53 Fluid Type Dialysate 12/22/20 Unknown Fluid Color Colorless 12/22/20 Unknown Fluid Appearance Cloudy 12/22/20 Unknown Fluid WBC 208 /mm3 12/22/20 Unknown Fluid RBC 45 /mm3 12/22/20 Unknown Fluid Seg Neutrophils 82.0 % 12/22/20 Unknown Fluid Lymphocytes 11.0 % 12/22/20 Unknown Fluid Reactive Lymphs 0 % 12/22/20 Unknown Fluid Monocytes 7.0 % 12/22/20 Unknown Fluid Eosinophils 0 % 12/22/20 Unknown Fluid Basophils 0 % 12/22/20 Unknown Random Vancomycin 13.7 ug/mL (0-40.0) 12/26/20 Unknown Hepatitis A IgM Ab Non-reactive (NonReactive) 12/23/20 11:38 Hep Bs Antigen Non-reactive (Negative) 12/23/20 11:38 Hep B Core IgM Ab Non-reactive (NonReactive) 12/23/20 11:38 Hepatitis C Antibody Non-reactive (NonReactive) 12/23/20 11:38 Blood Type A POSITIVE 01/06/21 07:10 Antibody Screen Negative 01/06/21 07:10 Crossmatch See Detail 01/06/21 07:10 Jeffery/IV: Voiding Method Incontinent Active Medications - Current Medications Current Medications: Generic Name Dose Route Start Last Admin Trade Name Freq PRN Reason Stop Dose Admin Acetaminophen 650 mg 12/31/20 15:30 12/31/20 15:13 Acetaminophen 650 Mg Rect Supp NC 650 mg Q6H PRN Administration Non Cardiac Pain or Temp>100.5 Carvedilol 12.5 mg 01/08/21 13:00 01/08/21 21:21 Carvedilol 12.5 Mg Tab PO Not Given BID THOMAS Clonidine HCl 0.1 mg 01/08/21 12:57 01/08/21 13:50 Clonidine Tts 0.1 Mg/24 Hr Patch TD 0.1 mg Q3D THOMAS Administration Digoxin 0.125 mg 12/31/20 10:00 01/08/21 11:55 Digoxin 0.5 Mg/2 Ml Inj IV Not Given Q48HR THOMAS Diphenhydramine HCl 25 mg 01/08/21 18:23 01/08/21 18:38 Diphenhydramine 50 Mg/Ml Vial IV 25 mg BID THOMAS Administration Enalaprilat 1.25 mg 01/08/21 17:00 01/09/21 01:09 Enalaprilat 2.5 Mg/2 Ml Inj IV 01/11/21 16:59 1.25 mg Q8H THOMAS Administration Famotidine 10 mg 12/24/20 13:00 01/08/21 21:36 Famotidine 20 Mg/2 Ml Inj IV 10 mg BID THOMAS Administration Fentanyl 50 mcg 12/24/20 11:35 01/09/21 01:10 Fentanyl 100 Mcg/2 Ml Inj IV 50 mcg Q10MIN PRN Administration ANALGESIA Haloperidol Lactate 5 mg 12/29/20 14:16 01/09/21 01:41 Haloperidol Lactate 5 Mg/1 Ml Inj IV 5 mg Q12H PRN Administration Agitation Heparin Sodium (Porcine) 5,000 unit 12/24/20 10:00 01/08/21 21:36 Heparin 5,000 Unit/1 Ml Vial SUB-Q 5,000 unit Q12HR THOMAS Administration Hydralazine HCl 50 mg 01/08/21 14:00 01/09/21 05:36 Hydralazine 25 Mg Tab PO Not Given Q8HR THOMAS Hydralazine HCl 15 mg 01/09/21 09:10 Hydralazine 20 Mg/1 Ml Inj IV 01/09/21 09:11 ONCE ONE Hydralazine HCl 10 mg 01/09/21 09:10 Hydralazine 20 Mg/1 Ml Inj IV Q4HR PRN Hypertension Hydrophilic Ointment 1 applic 12/31/20 06:39 Lip Therapy Vaseline TP Q2HR PRN Dry Lips Sodium Chloride 100 mls @ 999 mls/hr 12/23/20 11:03 Nacl 0.9% IV RYLAND PRN Hypotension Fentanyl Citrate 2,000 mcg in 100 mls @ 4.725 mls/hr 12/31/20 08:00 01/07/21 17:18 Fentanyl Drip Premix IV 0 mcg/kg/hr TITR THOMAS 0 mls/hr Titration Protocol 1 MCG/KG/HR NORepinephrine/NS 8 MG-250 ML 8 mg in 250 mls @ 3.75 mls/hr 12/31/20 09:00 01/03/21 08:30 Norepinephrine/Ns 8 Mg-250 Ml (Double Conc) IV 0 mcg/min TITRATE THOMAS 0 mls/hr Titration Protocol 2 MCG/MIN Vasopressin 20 unit/ Sodium 101 mls @ 9.09 mls/hr 12/31/20 21:00 01/02/21 21:13 Chloride IV 0 units/min TITR THOMAS 0 mls/hr Titration Protocol 0.03 UNITS/MIN Phenylephrine HCl 100 mg/ 100 mls @ 3 mls/hr 12/31/20 23:45 01/01/21 18:30 Sodium Chloride IV 0 mcg/min TITR THOMAS 0 mls/hr Titration Protocol 50 MCG/MIN Sodium Chloride 500 mls @ 0 mls/hr 01/03/21 17:03 Nacl 0.9% 500 Ml IV ONCE THOMAS As Directed Amino Acids/Electrolytes/Dextrose 2,016 mls @ 84 mls/hr 01/08/21 20:00 01/08/21 21:35 Tpn Adult IV 01/09/21 19:59 84 mls/hr DAILY@[email or web address] [facility] Administration Protocol Insulin Glargine 10 units 01/03/21 10:00 01/08/21 09:34 Insulin Glargine 100 Units/Ml SUB-Q 10 units DAILY THOMAS Administration Insulin Human Lispro 0 unit 01/03/21 12:00 01/09/21 05:36 Insulin Lispro 100 Unit/Ml SUB-Q Not Given Q6HR [facility] Protocol Methylprednisolone Sodium Succinate 40 mg 01/08/21 18:23 01/09/21 02:14 Methylprednisolone Sod Succinate 40 Mg/1 Ml Inj IV 40 mg Q8H THOMAS Administration Metoprolol Tartrate 5 mg 12/30/20 12:00 01/09/21 06:00 Metoprolol Tartrate 5 Mg/5 Ml Inj IV 5 mg Q4HR THOMAS Administration Multi-Ingred Cream/Lotion/Oil/Oint 1 applic 12/31/20 06:39 Mineral Oil/Petrolatum, White Ophth Oint 3.5 Gm OU Q4HR PRN Dry Eye(s) Scopolamine 1 each 01/07/21 18:01 01/07/21 17:21 Scopolamine Transdermal Patch 72 Hr TD 1 each Q3D THOMAS Administration Sodium Chloride 10 ml 12/22/20 22:00 01/08/21 21:36 Sodium Chloride 0.9% 10 Ml Flush Syringe IV 10 ml BID THOMAS Administration Sodium Chloride 10 ml 12/22/20 19:42 Sodium Chloride 0.9% 10 Ml Flush Syringe IV PRN PRN LINE FLUSH Nutrition/Malnutrition Assess - Dietary Evaluation Nutrition/Malnutrition Findings: Nutrition Notes Start: 12/24/20 12:36 Freq: Status: Active Protocol: Document 01/08/21 12:24 JOSE (Rec: 01/08/21 12:31 JOSE [id number]) Nutrition Notes Initial or Follow up Reassessment Current Diagnosis CKD (stage V CKD),Sepsis, Hypertension,Heart Failure Other Pertinent Diagnosis Peritonitis, SBO s/p resection Current Diet TPN at 84 ml/hr Labs/Tests BUN 93 Cr 8.8 CO2 - 20 Pertinent Medications Scopolamine Height 5 ft 7 in Weight 94.8 kg [place] Body Weight (kg) 67.27 BMI 32.7 Weight Status Obese Subjective/Other Information Day 14 TPN. Pt self-extubated yesterday evening; placed on BiPap support at night. Percent of energy/protein needs met: 100% energy/pro Burn Absent Trauma Absent #1 Nutrition Diagnosis Inadequate oral intake Diagnosis Progress(for reassessment Continues documentation) Is patient on ventilator? No Is Patient Ambulatory and/or Out of Bed No REE-([facility]-confined to bed) 2052.768 Kcal/Kg value to use for calculation 17 Approximate Energy Requirements Using 1612 kcal/Kg Calculation Used for Recommendations Kcal/kg Additional Notes Pro needs >2g/kg IBW: >135g/ day Fluid needs per MD. Nutrition Intervention Nutrition Support: Continue CPN at 84 ml/hr. MVI , chloride/acetate 75/25. Osmolality: 1670 Kcal 1,730 Protein (gm) 135 Carbohydrates (gm) 350 Fat (gm) 0 Fluid (mL) 2,016 Goal #1 Meet at least 75% of estimated energy and protein needs via CPN Follow-Up By: 01/09/21 Additional Comments Labs in am: BMP, Mg, Phos <JOHN PLATT - Last Filed: 01/13/21 10:55> Assessment and Plan Assessment and plan: I saw and evaluated the patient. I agree with the findings and the plan of care as documented in the Nurse Practitioner's~note, with the following corrections and additions. Hospitalist Physical - Constitutional Vitals: Temp Pulse Resp BP Pulse Ox 98.5 F 86 17 148/64 99 01/13/21 09:25 01/13/21 10:45 01/13/21 09:25 01/13/21 10:45 01/13/21 08:00 HEART Score - HEART Score Troponin: Troponin T 0.021 ng/mL (0.00-0.029) 12/22/20 14:38 Results - Labs CBC & Chem 7: 01/13/21 03:45 01/13/21 03:45 Labs: Laboratory Last Values WBC 17.6 K/mm3 (4.5-11.0) H 01/13/21 03:45 RBC 3.33 M/mm3 (3.65-5.03) L 01/13/21 03:45 Hgb 10.2 gm/dl (11.8-15.2) L 01/13/21 03:45 Hct 29.5 % (35.5-45.6) L 01/13/21 03:45 MCV 88 fl (84-94) 01/13/21 03:45 MCH 31 pg (28-32) 01/13/21 03:45 MCHC 35 % (32-34) H 01/13/21 03:45 RDW 15.5 % (13.2-15.2) H 01/13/21 03:45 Plt Count 377 K/mm3 (140-440) 01/13/21 03:45 Lymph % (Auto) 4.4 % (13.4-35.0) L 01/13/21 03:45 [place] % (Auto) 10.3 % (0.0-7.3) H 01/13/21 03:45 Eos % (Auto) 0.9 % (0.0-4.3) 01/13/21 03:45 Baso % (Auto) 0.2 % (0.0-1.8) 01/13/21 03:45 Lymph # (Auto) 0.8 K/mm3 (1.2-5.4) L 01/13/21 03:45 [place] # (Auto) 1.8 K/mm3 (0.0-0.8) H 01/13/21 03:45 Eos # (Auto) 0.2 K/mm3 (0.0-0.4) 01/13/21 03:45 Baso # (Auto) 0.0 K/mm3 (0.0-0.1) 01/13/21 03:45 Add Manual Diff Complete 01/10/21 09:26 Total Counted 100 01/10/21 09:26 Seg Neutrophils % 84.2 % (40.0-70.0) H 01/13/21 03:45 Seg Neuts % (Manual) 95.0 % (40.0-70.0) H 01/10/21 09:26 Band Neutrophils % 1.0 % 01/10/21 09:26 Lymphocytes % (Manual) 3.0 % (13.4-35.0) L 01/10/21 09:26 Reactive Lymphs % (Man) 1.0 % 12/29/20 05:16 Monocytes % (Manual) 1.0 % (0.0-7.3) 01/10/21 09:26 Eosinophils % (Manual) 2.0 % (0.0-4.3) 12/29/20 05:16 Metamyelocytes % 2.0 % 12/29/20 05:16 Nucleated RBC % Not Reportable 01/10/21 09:26 Seg Neutrophils # 14.8 K/mm3 (1.8-7.7) H 01/13/21 03:45 Seg Neutrophils # Man 17.3 K/mm3 (1.8-7.7) H 01/10/21 09:26 Band Neutrophils # 0.2 K/mm3 01/10/21 09:26 Lymphocytes # (Manual) 0.5 K/mm3 (1.2-5.4) L 01/10/21 09:26 Abs React Lymphs (Man) 0.0 K/mm3 01/10/21 09:26 Monocytes # (Manual) 0.2 K/mm3 (0.0-0.8) 01/10/21 09:26 Eosinophils # (Manual) 0.0 K/mm3 (0.0-0.4) 01/10/21 09:26 Basophils # (Manual) 0.0 K/mm3 (0.0-0.1) 01/10/21 09:26 Metamyelocytes # 0.0 K/mm3 01/10/21 09:26 Myelocytes # 0.0 K/mm3 01/10/21 09:26 Promyelocytes # 0.0 K/mm3 01/10/21 09:26 Blast Cells # 0.0 K/mm3 01/10/21 09:26 WBC Morphology Not Reportable 01/10/21 09:26 Hypersegmented Neuts Not Reportable 01/10/21 09:26 Hyposegmented Neuts Not Reportable 01/10/21 09:26 Hypogranular Neuts Not Reportable 01/10/21 09:26 Smudge Cells Not Reportable 01/10/21 09:26 Toxic Granulation 1+ 01/10/21 09:26 Toxic Vacuolation Not Reportable 01/10/21 09:26 Dohle Bodies Not Reportable 01/10/21 09:26 Pelger-Huet Anomaly Not Reportable 01/10/21 09:26 Lamar Rods Not Reportable 01/10/21 09:26 Platelet Estimate Consistent w auto 01/10/21 09:26 Clumped Platelets Not Reportable 01/10/21 09:26 Plt Clumps, EDTA Not Reportable 01/10/21 09:26 Large Platelets Not Reportable 01/10/21 09:26 Giant Platelets Not Reportable 01/10/21 09:26 Platelet Satelliting Not Reportable 01/10/21 09:26 Plt Morphology Comment Not Reportable 01/10/21 09:26 RBC Morphology Not Reportable 01/10/21 09:26 Dimorphic RBCs Not Reportable 01/10/21 09:26 Polychromasia Not Reportable 01/10/21 09:26 Hypochromasia Not Reportable 01/10/21 09:26 Poikilocytosis Not Reportable 01/10/21 09:26 Anisocytosis 1+ 01/10/21 09:26 Microcytosis Not Reportable 01/10/21 09:26 Macrocytosis Not Reportable 01/10/21 09:26 Spherocytes Not Reportable 01/10/21 09:26 Pappenheimer Bodies Not Reportable 01/10/21 09:26 Sickle Cells Not Reportable 01/10/21 09:26 Target Cells Not Reportable 01/10/21 09:26 Tear Drop Cells Not Reportable 01/10/21 09:26 Ovalocytes Not Reportable 01/10/21 09:26 Helmet Cells Not Reportable 01/10/21 09:26 [place] Bodies Not Reportable 01/10/21 09:26 [place] Rings Not Reportable 01/10/21 09:26 Jenny Cells Not Reportable 01/10/21 09:26 Bite Cells Not Reportable 01/10/21 09:26 Crenated Cell Not Reportable 01/10/21 09:26 Elliptocytes Not Reportable 01/10/21 09:26 Acanthocytes (Spur) Not Reportable 01/10/21 09:26 Rouleaux Not Reportable 01/10/21 09:26 Hemoglobin C Crystals Not Reportable 01/10/21 09:26 Schistocytes Not Reportable 01/10/21 09:26 Malaria parasites Not Reportable 01/10/21 09:26 Lucas Bodies Not Reportable 01/10/21 09:26 Hem Pathologist Commnt No 01/10/21 09:26 PT 16.9 Sec. (12.2-14.9) H 01/01/21 12:45 INR 1.39 (0.87-1.13) H 01/01/21 12:45 APTT 25.1 Sec. (24.2-36.6) 12/22/20 14:38 ABG pH 7.345 pH Units (7.350-7.450) L 01/07/21 17:14 POC ABG pCO2 41.4 mmHg (32.0-48.0) 01/07/21 03:07 ABG pCO2 40.3 mm Hg 01/07/21 17:14 POC ABG pO2 94.5 mmHg (83-108) 01/07/21 03:07 ABG pO2 67.4 mm Hg (80.0-90.0) L 01/07/21 17:14 POC ABG HCO3 22.7 01/07/21 03:07 ABG HCO3 21.5 mmol/L (20.0-26.0) 01/07/21 17:14 ABG O2 Saturation 94.3 % (95.0-99.0) L 01/07/21 17:14 ABG O2 Content 11.6 (0.0-44) 01/07/21 17:14 POC ABG Base Excess -2.7 01/07/21 03:07 ABG Base Excess -3.9 mmol/L (-2.0-3.0) L 01/07/21 17:14 ABG Hemoglobin 8.9 gm/dl (14.0-18.0) L 01/07/21 17:14 ABG Oxyhemoglobin 96.6 (94-98) 01/07/21 03:07 ABG Carboxyhemoglobin 1.5 % (0.0-5.0) 01/07/21 17:14 ABG Methemoglobin 0.6 % (0.0-1.5) 01/07/21 17:14 ABG Sodium 135.6 mmol/L (136.0-145.0) L 01/07/21 03:07 ABG Potassium 4.0 mmol/L (3.40-4.50) 01/07/21 03:07 ABG Chloride 102.0 mmol/L (98-107) 01/07/21 03:07 ABG Glucose 181 mg/dL (65-95) H 01/07/21 03:07 Oxyhemoglobin 92.3 % (95.0-99.0) L 01/07/21 17:14 Carboxyhemoglobin 0.7 (0.5-1.5) 01/07/21 03:07 FiO2 21 % 01/07/21 17:14 FiO2 % 45.0 01/07/21 03:07 Sodium 136 mmol/L (137-145) L 01/13/21 03:45 Potassium 3.4 mmol/L (3.6-5.0) L 01/13/21 03:45 Chloride 92.6 mmol/L (98-107) L 01/13/21 03:45 Carbon Dioxide 22 mmol/L (22-30) 01/13/21 03:45 Anion Gap 25 mmol/L 01/13/21 03:45 BUN 134 mg/dL (9-20) H 01/13/21 03:45 Creatinine 10.4 mg/dL (0.8-1.3) H 01/13/21 03:45 Estimated GFR 6 ml/min 01/13/21 03:45 BUN/Creatinine Ratio 13 % 01/13/21 03:45 Glucose 126 mg/dL (75-100) H 01/13/21 03:45 POC Glucose 134 mg/dL (70-105) H 01/13/21 05:55 Lactic Acid 1.50 mmol/L (0.7-2.0) 01/02/21 18:00 Calcium 8.3 mg/dL (8.4-10.2) L 01/13/21 03:45 Phosphorus 5.60 mg/dL (2.5-4.5) H 01/13/21 03:45 Magnesium 1.50 mg/dL (1.7-2.3) L 01/13/21 03:45 Total Bilirubin 0.90 mg/dL (0.1-1.2) 01/08/21 04:34 AST 30 units/L (5-40) 01/08/21 04:34 ALT 29 units/L (7-56) 01/08/21 04:34 Alkaline Phosphatase 133 units/L (35-129) H 01/08/21 04:34 Ammonia 30.0 umol/L (25-60) 12/22/20 14:38 Troponin T 0.021 ng/mL (0.00-0.029) 12/22/20 14:38 Total Protein 5.4 g/dL (6.3-8.2) L 01/08/21 04:34 Albumin 1.9 g/dL (3.9-5) L 01/08/21 04:34 Albumin/Globulin Ratio 0.5 % 01/08/21 04:34 Triglycerides 77 mg/dL (2-149) 01/11/21 05:18 Lipase 41 units/L (13-60) 12/22/20 14:38 Procalcitonin > 200.00 ng/mL (<0.15) 12/24/20 15:06 TSH 1.470 mlU/mL (0.270-4.200) 12/28/20 19:44 Arterial Blood Glucose 181 mg/dL (65-95) H 01/07/21 03:07 Arterial Blood Ionized Calcium 4.3 mg/dL (4.6-5.3) L 01/07/21 03:07 Urine Color Yellow (Yellow) 12/22/20 18:53 Urine Turbidity Clear (Clear) 12/22/20 18:53 Urine pH 7.0 (5.0-7.0) 12/22/20 18:53 Ur Specific [place] 1.012 (1.003-1.030) 12/22/20 18:53 Urine Protein >500 mg/dL (Negative) 12/22/20 18:53 Urine Glucose (UA) Neg mg/dL (Negative) 12/22/20 18:53 Urine Ketones Neg mg/dL (Negative) 12/22/20 18:53 Urine Blood Neg (Negative) 12/22/20 18:53 Urine Nitrite Neg (Negative) 12/22/20 18:53 Urine Bilirubin Neg (Negative) 12/22/20 18:53 Urine Urobilinogen < 2.0 mg/dL (<2.0) 12/22/20 18:53 Ur Leukocyte Esterase Neg (Negative) 12/22/20 18:53 Urine WBC (Auto) < 1.0 /HPF (0.0-6.0) 12/22/20 18:53 Urine RBC (Auto) 1.0 /HPF (0.0-6.0) 12/22/20 18:53 Fluid Type Dialysate 12/22/20 Unknown Fluid Color Colorless 12/22/20 Unknown Fluid Appearance Cloudy 12/22/20 Unknown Fluid WBC 208 /mm3 12/22/20 Unknown Fluid RBC 45 /mm3 12/22/20 Unknown Fluid Seg Neutrophils 82.0 % 12/22/20 Unknown Fluid Lymphocytes 11.0 % 12/22/20 Unknown Fluid Reactive Lymphs 0 % 12/22/20 Unknown Fluid Monocytes 7.0 % 12/22/20 Unknown Fluid Eosinophils 0 % 12/22/20 Unknown Fluid Basophils 0 % 12/22/20 Unknown Random Vancomycin 13.7 ug/mL (0-40.0) 12/26/20 Unknown Digoxin 0.8 ng/mL (0.9-2.0) L 01/11/21 05:18 Hepatitis A IgM Ab Non-reactive (NonReactive) 12/23/20 11:38 Hep Bs Antigen Non-reactive (Negative) 12/23/20 11:38 Hep B Core IgM Ab Non-reactive (NonReactive) 12/23/20 11:38 Hepatitis C Antibody Non-reactive (NonReactive) 12/23/20 11:38 Blood Type A POSITIVE 01/06/21 07:10 Antibody Screen Negative 01/06/21 07:10 Crossmatch See Detail 01/06/21 07:10 Jeffery/IV: Voiding Method Incontinent Active Medications - Current Medications Current Medications: Generic Name Dose Route Start Last Admin Trade Name Freq PRN Reason Stop Dose Admin Acetaminophen 650 mg 12/31/20 15:30 12/31/20 15:13 Acetaminophen 650 Mg Rect Supp NC 650 mg Q6H PRN Administration Non Cardiac Pain or Temp>100.5 Clonidine HCl 0.2 mg 01/11/21 10:00 01/11/21 09:24 Clonidine Tts 0.2 Mg/24 Hr Patch TD 0.2 mg We THOMAS Administration Digoxin 0.125 mg 01/09/21 12:00 01/11/21 11:59 Digoxin 0.5 Mg/2 Ml Inj IV 0.125 mg Q48H THOMAS Administration Diphenhydramine HCl 25 mg 01/08/21 18:23 01/12/21 21:24 Diphenhydramine 50 Mg/Ml Vial IV 25 mg BID THOMAS Administration Famotidine 10 mg 12/24/20 13:00 01/12/21 21:28 Famotidine 20 Mg/2 Ml Inj IV 10 mg BID THOMAS Administration Haloperidol Lactate 5 mg 12/29/20 14:16 01/09/21 01:41 Haloperidol Lactate 5 Mg/1 Ml Inj IV 5 mg Q12H PRN Administration Agitation Heparin Sodium (Porcine) 5,000 unit 12/24/20 10:00 01/12/21 21:26 Heparin 5,000 Unit/1 Ml Vial SUB-Q 5,000 unit Q12HR THOMAS Administration Hydralazine HCl 10 mg 01/10/21 14:00 01/13/21 06:12 Hydralazine 20 Mg/1 Ml Inj IV 10 mg Q4HR THOMAS Administration Hydromorphone HCl 0.25 mg 01/09/21 10:53 01/13/21 09:25 Hydromorphone 1 Mg/1 Ml Inj IV 0.25 mg Q6H PRN Administration Pain , Severe (7-10) Hydrophilic Ointment 1 applic 12/31/20 06:39 01/11/21 21:28 Lip Therapy Vaseline TP 1 applic Q2HR PRN Administration Dry Lips Sodium Chloride 100 mls @ 999 mls/hr 01/12/21 09:20 Nacl 0.9% IV RYLAND PRN Hypotension Amino Acids/Electrolytes/Dextrose 2,016 mls @ 0 mls/hr 01/12/21 20:00 20:16 Tpn Adult IV 01/13/21 12:00 63 mls/hr DAILY@1999 [facility] Administration Protocol As Directed Magnesium Sulfate 2 gm in 50 mls @ 25 mls/hr 01/13/21 09:00 Magnesium Sulfate 2gm/50ml IV 01/13/21 10:59 ONCE ONE Fat Emulsion Intravenous 250 mls @ 21 mls/hr 01/13/21 20:00 Intralipid 20% IV 01/14/21 08:00 DAILY@1999 [facility] Amino Acids/Electrolytes/Dextrose 2,016 mls @ 0 mls/hr 01/13/21 20:00 Tpn Adult IV 01/14/21 08:00 DAILY@1999 [facility] Protocol As Directed Octreotide Acetate 500 mcg/ 101 mls @ 5.05 mls/hr 01/13/21 11:00 Sodium Chloride IV TITR [facility] Protocol 25 MCG/HR Insulin Glargine 10 units 01/03/21 10:00 01/12/21 10:47 Insulin Glargine 100 Units/Ml SUB-Q 10 units DAILY THOMAS Administration Insulin Human Lispro 0 unit 01/03/21 12:00 01/13/21 06:13 Insulin Lispro 100 Unit/Ml SUB-Q Not Given Q6HR [facility] Protocol Metoprolol Tartrate 5 mg 12/30/20 12:00 01/13/21 06:12 Metoprolol Tartrate 5 Mg/5 Ml Inj IV 5 mg Q4HR THOMAS Administration Multi-Ingred Cream/Lotion/Oil/Oint 1 applic 12/31/20 06:39 Mineral Oil/Petrolatum, White Ophth Oint 3.5 Gm OU Q4HR PRN Dry Eye(s) Scopolamine 1 each 05/23/21 11:00 Scopolamine Transdermal Patch 72 Hr TD Q3D THOMAS Sodium Chloride 10 ml 12/22/20 22:00 01/12/21 21:31 Sodium Chloride 0.9% 10 Ml Flush Syringe IV 10 ml BID THOMAS Administration Sodium Chloride 10 ml 12/22/20 19:42 01/09/21 17:27 Sodium Chloride 0.9% 10 Ml Flush Syringe IV 10 ml PRN PRN Administration LINE FLUSH Nutrition/Malnutrition Assess - Dietary Evaluation Nutrition/Malnutrition Findings: Nutrition Notes Start: 12/24/20 12:36 Freq: Status: Active Protocol: Document 01/12/21 11:16 KAY (Rec: 01/12/21 11:20 KAY [id number]) Co-Sign 01/12/21 11:16 JUAN Nutrition Notes Initial or Follow up Reassessment Current Diagnosis CKD (stage V CKD),Sepsis, Hypertension,Heart Failure Other Pertinent Diagnosis Peritonitis, SBO s/p resection Current Diet TPN at 55/105/55 ml/hr Labs/Tests K 2.9 Cl 94.8 BUN 102 Cr 8.3 Ca 8.1 P 5.0 Pertinent Medications Humalog Lantus KCl 20meq Height 5 ft 7 in Weight 86.6 kg [place] Body Weight (kg) 67.27 BMI 29.9 Weight Status Obese Subjective/Other Information TPN Day 18. Pt received dialysis yeserday AM and K replacement this AM. Percent of energy/protein needs met: 100%/100% Burn Absent Trauma Absent Current % PO Negligible Minimum of two criteria No #1 Nutrition Diagnosis Inadequate oral intake Diagnosis Progress(for reassessment Continues documentation) Is patient on ventilator? No Is Patient Ambulatory and/or Out of Bed No REE-([facility]-confined to bed) 1954.464 Kcal/Kg value to use for calculation 19 Approximate Energy Requirements Using 1645 kcal/Kg Calculation Used for Recommendations Kcal/kg Additional Notes Pro needs: 101-121 g/day (1.25 -1.5 g/kg AdjBW, 81kg) Fluid needs per MD. Nutrition Intervention Change Diet Order: Continue CPN Nutrition Support: Cyclic CPN at 63/135/63 ml/hr for 16 hr: MVI, MTE. Osmolality: 1592 Kcal 1,672 Protein (gm) 121 Carbohydrates (gm) 350 Fat (gm) 0 Fluid (mL) 2,016 Goal #1 Meet at least 75% of estimated energy and protein needs via CPN Anticipated Discharge Needs: unable to determine at this time Follow-Up By: 01/13/21 Additional Comments Labs in AM: BMP, Mag, Archanas
--- NOTE | 2021-01-09 09:43 | Progress Note ---
Assessment and Plan Assessment: * ESRD previouaslyon peritoneal dialysis; now on back up HD (on peritoneal dialysis for 2 years with no history of peritonitis) * Small bowel obstruction --s/p ex-lap with jejuno-ileal anastamosis --s/p ex lap with extensive lysis of adhesions and two small bowel resections with primary anastamosis for SBO with necrotic segment small bowel. --s/p ex lap, resection of perforated anastamosis, washout and abthera wound vac placement. --s/p ex lap with right hemicolectomy. * Acute respiratory failure * Septic shock - resolved * Bacteremia - resolved * Hyperkalemia * Anemia of ESRD * Atrial fibrilation, new onset * Post op ileus Plan: * Continue HD MWF via left IJ permcath (12/27) * UF as tolerated * Will require outpatient hd placement once stable * Rate control per cardiology * Abx per primary team/ID * Maintatin MAP >65 * AM labs Subjective Date of service: 01/09/21 Principal diagnosis: Ac hypoxemic resp failure; Severe Sepsis; Peritonitis; Acute SBO; ESRD; CHF Interval history: No acute events. Objective - Vital Signs Vital signs: Vital Signs - 12hr 01/08/21 01/08/21 01/08/21 22:00 22:30 23:00 Temperature Pulse Rate 83 85 83 Pulse Rate [ From Monitor] Respiratory 24 22 23 Rate Blood Pressure 199/99 190/95 208/89 O2 Sat by Pulse 98 99 99 Oximetry 01/08/21 01/09/21 01/09/21 23:31 00:00 00:01 Temperature 99.0 F Pulse Rate 86 89 92 H Pulse Rate [ 85 From Monitor] Respiratory 23 21 27 H Rate Blood Pressure 209/86 212/97 O2 Sat by Pulse 99 96 98 Oximetry 01/09/21 01/09/21 01/09/21 00:30 01:02 01:09 Temperature Pulse Rate 89 79 84 Pulse Rate [ From Monitor] Respiratory 21 15 Rate Blood Pressure 195/93 199/86 O2 Sat by Pulse 99 100 Oximetry 01/09/21 01/09/21 01/09/21 01:30 02:00 02:30 Temperature Pulse Rate 92 H 86 95 H Pulse Rate [ From Monitor] Respiratory 16 21 17 Rate Blood Pressure 202/98 196/99 192/81 O2 Sat by Pulse 98 99 98 Oximetry 01/09/21 01/09/21 01/09/21 03:00 03:30 04:00 Temperature 98.6 F Pulse Rate 87 86 82 Pulse Rate [ 85 From Monitor] Respiratory 22 22 20 Rate Blood Pressure 212/89 206/89 206/91 O2 Sat by Pulse 98 98 98 Oximetry 01/09/21 01/09/21 01/09/21 04:30 05:00 05:30 Temperature Pulse Rate 86 86 Pulse Rate [ From Monitor] Respiratory 18 20 Rate Blood Pressure 204/96 199/91 199/91 O2 Sat by Pulse 99 99 99 Oximetry 01/09/21 01/09/21 06:00 08:00 Temperature 98.6 F Pulse Rate 84 Pulse Rate [ From Monitor] Respiratory Rate Blood Pressure 192/96 O2 Sat by Pulse Oximetry - General Appearance General appearance: well-developed, well-nourished EENT: ATNC Respiratory: Present: Clear to Ascultation Cardiology: regular, S1S2 Integumentary: no rash, warm and dry Musculoskeletal: other (No edema) Psychiatric: cooperative - Lab 01/07/21 08:37 01/10/21 04:52 Most recent lab results ABG pH 7.345 pH Units (7.350-7.450) L 01/07/21 17:14 ABG pCO2 40.3 mm Hg 01/07/21 17:14 ABG pO2 67.4 mm Hg (80.0-90.0) L 01/07/21 17:14 ABG HCO3 21.5 mmol/L (20.0-26.0) 01/07/21 17:14 ABG O2 Saturation 94.3 % (95.0-99.0) L 01/07/21 17:14 Calcium 9.2 mg/dL (8.4-10.2) 01/09/21 05:13 Phosphorus 5.00 mg/dL (2.5-4.5) H D 01/09/21 05:13 Magnesium 2.40 mg/dL (1.7-2.3) H 01/09/21 05:13 Medications & Allergies - Medications Allergies/Adverse Reactions: Allergies No Known Allergies Allergy (Verified 06/09/20 15:27) Home Medications: Home Medications Medication Instructions Recorded Confirmed Last Taken Type Albuterol Mdi (or & Nicu Only) 2 puff IH QID PRN #1 inhalation 04/01/17 11/01/20 10/31/20 09:00 Rx [ProAir HFA Inhaler] Calcium Acetate 667 mg PO DAILY 04/20/20 11/01/20 10/31/20 09:00 History Centrum Men's Tablet 1 tab PO DAILY 04/20/20 11/01/20 10/31/20 09:00 History Cinacalcet 30 mg PO DAILY 04/20/20 11/01/20 10/31/20 09:00 History Dialyvite with Zinc Tablet 1 tab PO DAILY 04/20/20 11/01/20 10/31/20 09:00 History Magnesium 250 mg PO BID 04/20/20 11/01/20 10/31/20 17:00 History Triamcinolone 0.1% 1 1000units TRANSDERMA DAILY 04/20/20 11/01/20 10/31/20 09:00 History Vit B12/Folic Acid/B6/Aa No.15 1,000 mg PO DAILY 04/20/20 11/01/20 10/31/20 09:00 History amLODIPine 10 mg PO DAILY 06/09/20 11/01/20 10/31/20 09:00 History AtorvaSTATin 40 mg PO HS 11/01/20 11/01/20 10/31/20 21:00 History Benadryl 25 mg PO HS 11/01/20 11/01/20 10/31/20 21:00 History Diclofenac 1 TRANSDERMA QID 11/01/20 10/31/20 19:00 History Fluticasone Propionate 1 spray INTRANASAL DAILY 11/01/20 11/01/20 10/31/20 09:00 History Vitamin D3 2,000 units 11/01/20 10/31/20 09:00 History carvediloL 12.5 mg PO DAILY 11/01/20 11/01/20 10/31/20 09:00 History hydrALAZINE 100 mg PO TID 11/01/20 11/01/20 10/31/20 19:00 History Active Medications: Generic Name Dose Route Start Last Admin Trade Name Freq PRN Reason Stop Dose Admin Acetaminophen 650 mg 12/31/20 15:30 12/31/20 15:13 Acetaminophen 650 Mg Rect Supp W[place] 650 mg Q6H PRN Administration Non Cardiac Pain or Temp>100.5 Carvedilol 12.5 mg 01/08/21 13:00 01/08/21 21:21 Carvedilol 12.5 Mg Tab PO Not Given BID THOMAS Clonidine HCl 0.1 mg 01/08/21 12:57 01/08/21 13:50 Clonidine Tts 0.1 Mg/24 Hr Patch TD 0.1 mg Q3D THOMAS Administration Digoxin 0.125 mg 12/31/20 10:00 01/08/21 11:55 Digoxin 0.5 Mg/2 Ml Inj IV Not Given Q48HR THOMAS Diphenhydramine HCl 25 mg 01/08/21 18:23 01/08/21 18:38 Diphenhydramine 50 Mg/Ml Vial IV 25 mg BID THOMAS Administration Enalaprilat 1.25 mg 01/08/21 17:00 01/09/21 09:26 Enalaprilat 2.5 Mg/2 Ml Inj IV 01/11/21 16:59 1.25 mg Q8H THOMAS Administration Famotidine 10 mg 12/24/20 13:00 01/08/21 21:36 Famotidine 20 Mg/2 Ml Inj IV 10 mg BID THOMAS Administration Fentanyl 50 mcg 12/24/20 11:35 01/09/21 01:10 Fentanyl 100 Mcg/2 Ml Inj IV 50 mcg Q10MIN PRN Administration ANALGESIA Haloperidol Lactate 5 mg 12/29/20 14:16 01/09/21 01:41 Haloperidol Lactate 5 Mg/1 Ml Inj IV 5 mg Q12H PRN Administration Agitation Heparin Sodium (Porcine) 5,000 unit 12/24/20 10:00 01/08/21 21:36 Heparin 5,000 Unit/1 Ml Vial SUB-Q 5,000 unit Q12HR THOMAS Administration Hydralazine HCl 50 mg 01/08/21 14:00 01/09/21 05:36 Hydralazine 25 Mg Tab PO Not Given Q8HR THOMAS Hydralazine HCl 15 mg 01/09/21 10:00 Hydralazine 20 Mg/1 Ml Inj IV 01/09/21 10:01 ONCE ONE Hydralazine HCl 10 mg 01/09/21 09:10 Hydralazine 20 Mg/1 Ml Inj IV Q4HR PRN Hypertension Hydrophilic Ointment 1 applic 12/31/20 06:39 Lip Therapy Vaseline TP Q2HR PRN Dry Lips Sodium Chloride 100 mls @ 999 mls/hr 12/23/20 11:03 Nacl 0.9% IV [place] PRN Hypotension Fentanyl Citrate 2,000 mcg in 100 mls @ 4.725 mls/hr 12/31/20 08:00 01/07/21 17:18 Fentanyl Drip Premix IV 0 mcg/kg/hr TITR THOMAS 0 mls/hr Titration Protocol 1 MCG/KG/HR NORepinephrine/NS 8 MG-250 ML 8 mg in 250 mls @ 3.75 mls/hr 12/31/20 09:00 01/03/21 08:30 Norepinephrine/Ns 8 Mg-250 Ml (Double Conc) IV 0 mcg/min TITRATE THOMAS 0 mls/hr Titration Protocol 2 MCG/MIN Vasopressin 20 unit/ Sodium 101 mls @ 9.09 mls/hr 12/31/20 21:00 01/02/21 21:13 Chloride IV 0 units/min TITR THOMAS 0 mls/hr Titration Protocol 0.03 UNITS/MIN Phenylephrine HCl 100 mg/ 100 mls @ 3 mls/hr 12/31/20 23:45 01/01/21 18:30 Sodium Chloride IV 0 mcg/min TITR THOMAS 0 mls/hr Titration Protocol 50 MCG/MIN Sodium Chloride 500 mls @ 0 mls/hr 01/03/21 17:03 Nacl 0.9% 500 Ml IV ONCE [facility] As Directed Amino Acids/Electrolytes/Dextrose 2,016 mls @ 84 mls/hr 01/08/21 20:00 01/08/21 21:35 Tpn Adult IV 01/09/21 19:59 84 mls/hr DAILY@2000 [facility] Administration Protocol Insulin Glargine 10 units 01/03/21 10:00 01/08/21 09:34 Insulin Glargine 100 Units/Ml SUB-Q 10 units DAILY [facility] Administration Insulin Human Lispro 0 unit 01/03/21 12:00 01/09/21 05:36 Insulin Lispro 100 Unit/Ml SUB-Q Not Given Q6HR [facility] Protocol Methylprednisolone Sodium Succinate 40 mg 01/08/21 18:23 01/09/21 02:14 Methylprednisolone Sod Succinate 40 Mg/1 Ml Inj IV 40 mg Q8H THOMAS Administration Metoprolol Tartrate 5 mg 12/30/20 12:00 01/09/21 06:00 Metoprolol Tartrate 5 Mg/5 Ml Inj IV 5 mg Q4HR THOMAS Administration Multi-Ingred Cream/Lotion/Oil/Oint 1 applic 12/31/20 06:39 Mineral Oil/Petrolatum, White Ophth Oint 3.5 Gm OU Q4HR PRN Dry Eye(s) Scopolamine 1 each 01/07/21 18:01 01/07/21 17:21 Scopolamine Transdermal Patch 72 Hr TD 1 each Q3D THOMAS Administration Sodium Chloride 10 ml 12/22/20 22:00 01/08/21 21:36 Sodium Chloride 0.9% 10 Ml Flush Syringe IV 10 ml BID THOMAS Administration Sodium Chloride 10 ml 12/22/20 19:42 Sodium Chloride 0.9% 10 Ml Flush Syringe IV PRN PRN LINE FLUSH
[2021-01-09] MEDS ORDERED: hydrALAZINE 20 MG/1 ML INJ IV ONE (10:00)
[2021-01-09] MEDS: FAMOTIDINE 20 MG/2 ML INJ IV SCH ×2 (10:14→22:02)
[2021-01-09] MEDS: diphenhydrAMINE 50 MG/ML VIAL IV SCH ×2 (10:15→22:03)
[2021-01-09] MEDS: INSULIN GLARGINE 100 UNITS/ML SUB-Q SCH (10:16)
[2021-01-09] MEDS: HEPARIN 5,000 UNIT/1 ML VIAL SUB-Q SCH ×2 (10:16→22:02)
--- NOTE | 2021-01-09 11:14 | Progress Note ---
Assessment and Plan - Patient Problems (1) Atrial fibrillation Current Visit: Yes Status: Acute (2) Accelerated hypertension Current Visit: No Status: Acute Subjective Date of service: 01/09/21 Principal diagnosis: Ac hypoxemic resp failure; Severe Sepsis; Peritonitis; Acute SBO; ESRD; CHF Interval history: extubated,,GARBLED SPEECH,,,NO CV C/O Objective Vital Signs Temp Pulse Pulse Resp BP Pulse Ox 01/09/21 08:00 98.6 F 01/09/21 06:00 84 192/96 01/09/21 05:30 199/91 99 01/09/21 05:00 86 20 199/91 99 01/09/21 04:30 86 18 204/96 99 01/09/21 04:00 98.6 F 82 85 20 206/91 98 01/09/21 03:30 86 22 206/89 98 01/09/21 03:00 87 22 212/89 98 01/09/21 02:30 95 H 17 192/81 98 01/09/21 02:00 86 21 196/99 99 01/09/21 01:30 92 H 16 202/98 98 01/09/21 01:09 84 199/86 01/09/21 01:02 79 15 100 01/09/21 00:30 89 21 195/93 99 01/09/21 00:01 92 H 27 H 212/97 98 01/09/21 00:00 99.0 F 89 85 21 96 01/08/21 23:31 86 23 209/86 99 01/08/21 23:00 83 23 208/89 99 01/08/21 22:30 85 22 190/95 99 01/08/21 22:00 83 24 199/99 98 01/08/21 21:36 85 197/86 01/08/21 21:30 83 22 197/86 98 01/08/21 21:14 97 01/08/21 21:00 86 21 202/91 98 01/08/21 20:30 81 20 201/93 98 01/08/21 20:00 98.8 F 83 85 23 170/94 98 01/08/21 19:31 81 20 190/87 99 01/08/21 19:00 79 19 181/82 99 01/08/21 18:30 73 20 178/79 99 01/08/21 18:17 83 178/79 01/08/21 18:00 77 19 157/74 99 01/08/21 17:30 72 18 160/76 99 01/08/21 17:10 85 174/90 01/08/21 17:00 82 21 174/90 98 01/08/21 16:30 81 21 193/82 98 01/08/21 16:00 98.2 F 85 85 21 184/85 96 01/08/21 15:30 85 19 194/81 98 01/08/21 15:00 81 19 172/82 98 01/08/21 14:30 84 19 190/78 98 01/08/21 14:00 82 18 180/78 98 01/08/21 13:50 81 181/81 01/08/21 13:44 86 196/82 01/08/21 13:42 86 196/82 01/08/21 13:30 85 17 196/82 98 01/08/21 13:00 85 18 194/83 99 01/08/21 12:30 84 19 184/80 98 01/08/21 12:00 98.6 F 85 84 18 179/76 98 01/08/21 11:30 83 18 191/80 98 - Physical Examination General: Other (OW,,,SOMNULENT) HEENT: Positive: PERRL Neck: Positive: neck supple Cardiac: Positive: Reg Rate and Rhythm Lungs: Positive: clear to auscultation Neuro: Positive: Weakness (Sedated, on the vent) Abdomen: Positive: Soft, Other (POST OP) Skin: Positive: Clear Extremities: Present: normal. Absent: edema - Labs and Meds Comprehensive Metabolic Panel 01/09/21 Range/Units 05:13 Sodium 138 (137-145) mmol/L Potassium 4.5 (3.6-5.0) mmol/L Chloride 98.4 (98-107) mmol/L Carbon Dioxide 16 L (22-30) mmol/L BUN 123 H (9-20) mg/dL Creatinine 10.8 H (0.8-1.3) mg/dL Glucose 145 H (75-100) mg/dL Calcium 9.2 (8.4-10.2) mg/dL - Allied health notes Allied health notes reviewed: nursing
[2021-01-09] MEDS: HYDROmorphone 1 MG/1 ML INJ IV PRN ×2 (11:19→17:21)
[2021-01-09] MEDS: DIGOXIN 0.5 MG/2 ML INJ IV SCH (11:39)
[2021-01-09] MEDS ORDERED: labetaloL 200 MG in DEXTROSE 5% IN WATER 160 ML IV SCH (12:00)
--- NOTE | 2021-01-09 14:11 | Progress Note ---
Assessment and Plan POD#16 s/p ex lap with extensive lysis of adhesions and two small bowel resections with primary anastamosis for SBO with necrotic segment small bowel. POD#7 s/p ex lap, resection of perforated anastamosis, washout and abthera wound vac placement. POD#5 s/p ex lap with right hemicolectomy. POd#3 s/p ex lap, with jejunal-colonic anastamosis and closure of abdomen. Afebrile and stable. - post op ileus. Continue PPN - await return of bowel function. Continue NGT decompression. Wound care evaluation for wound vac. Pt due for dialysis today. Uncontrolled hypertension, pt should not be given PO meds until ilieus resolves. Until then it will sit in his stomach and then get suctioned out shortly there after. Subjective Date of service: 01/09/21 Narrative: no acute events overnight. Pt arousable and denies pain. His hypertention has been uncontrolled and the biggest issue in past 24 hours. Objective Vital Signs - 12hr 01/09/21 01/09/21 01/09/21 02:30 03:00 03:30 Temperature Pulse Rate 95 H 87 86 Pulse Rate [ From Monitor] Respiratory 17 22 22 Rate Blood Pressure 192/81 212/89 206/89 O2 Sat by Pulse 98 98 98 Oximetry O2 Sat by Pulse Oximetry [ Anterior Bilateral Throughout] 01/09/21 01/09/21 01/09/21 04:00 04:30 05:00 Temperature 98.6 F Pulse Rate 82 86 86 Pulse Rate [ 85 From Monitor] Respiratory 20 18 20 Rate Blood Pressure 206/91 204/96 199/91 O2 Sat by Pulse 98 99 99 Oximetry O2 Sat by Pulse Oximetry [ Anterior Bilateral Throughout] 01/09/21 01/09/21 01/09/21 05:30 06:00 06:30 Temperature Pulse Rate 84 81 Pulse Rate [ From Monitor] Respiratory 19 20 Rate Blood Pressure 199/91 197/106 209/99 O2 Sat by Pulse 99 99 99 Oximetry O2 Sat by Pulse Oximetry [ Anterior Bilateral Throughout] 01/09/21 01/09/21 01/09/21 07:00 07:30 08:00 Temperature 98.6 F Pulse Rate 81 79 88 Pulse Rate [ From Monitor] Respiratory 18 21 21 Rate Blood Pressure 187/100 181/83 155/85 O2 Sat by Pulse 99 100 100 Oximetry O2 Sat by Pulse Oximetry [ Anterior Bilateral Throughout] 01/09/21 01/09/21 01/09/21 08:30 09:00 09:30 Temperature Pulse Rate 88 90 84 Pulse Rate [ From Monitor] Respiratory 18 21 15 Rate Blood Pressure 185/87 188/85 189/83 O2 Sat by Pulse 99 99 99 Oximetry O2 Sat by Pulse Oximetry [ Anterior Bilateral Throughout] 01/09/21 01/09/21 01/09/21 10:00 10:30 11:00 Temperature Pulse Rate 88 84 99 H Pulse Rate [ From Monitor] Respiratory 21 20 18 Rate Blood Pressure 178/83 179/116 195/81 O2 Sat by Pulse 99 99 98 Oximetry O2 Sat by Pulse Oximetry [ Anterior Bilateral Throughout] 01/09/21 01/09/21 01/09/21 11:30 11:38 11:39 Temperature 98.6 F Pulse Rate 101 H 96 H 95 H Pulse Rate [ From Monitor] Respiratory 22 Rate Blood Pressure 170/76 170/79 170/76 O2 Sat by Pulse 99 Oximetry O2 Sat by Pulse 99 Oximetry [ Anterior Bilateral Throughout] 01/09/21 01/09/21 01/09/21 12:00 12:15 12:30 Temperature 98.3 F Pulse Rate 105 H 96 H 96 H Pulse Rate [ From Monitor] Respiratory 19 18 Rate Blood Pressure 163/83 177/82 172/83 O2 Sat by Pulse 99 99 Oximetry O2 Sat by Pulse Oximetry [ Anterior Bilateral Throughout] 01/09/21 01/09/21 01/09/21 12:45 13:00 13:15 Temperature Pulse Rate 97 H 95 H 92 H Pulse Rate [ From Monitor] Respiratory 23 Rate Blood Pressure 170/81 166/78 167/78 O2 Sat by Pulse 99 Oximetry O2 Sat by Pulse Oximetry [ Anterior Bilateral Throughout] 01/09/21 01/09/21 01/09/21 13:30 13:45 14:00 Temperature Pulse Rate 99 H 92 H 98 H Pulse Rate [ From Monitor] Respiratory 23 Rate Blood Pressure 153/72 137/68 138/76 O2 Sat by Pulse 98 Oximetry O2 Sat by Pulse Oximetry [ Anterior Bilateral Throughout] - General physical appearance well developed, no distress, no pain - Respiratory normal expansion, normal respiratory effort - Abdomen soft, not tender, distended, not guarding, not rigid, other (wound vac in place with SS drainage, HARIS with SS drainage, NGT with 850cc past 24 hours bilious and 100cc since morning change of shift.) - Labs 01/07/21 08:37 01/09/21 05:13 Diabetes panel 01/09/21 Range/Units 05:13 Sodium 138 (137-145) mmol/L Potassium 4.5 (3.6-5.0) mmol/L Chloride 98.4 (98-107) mmol/L Carbon Dioxide 16 L (22-30) mmol/L BUN 123 H (9-20) mg/dL Creatinine 10.8 H (0.8-1.3) mg/dL Glucose 145 H (75-100) mg/dL Calcium 9.2 (8.4-10.2) mg/dL Calcium panel 01/09/21 Range/Units 05:13 Calcium 9.2 (8.4-10.2) mg/dL Phosphorus 5.00 H D (2.5-4.5) mg/dL Pituitary panel 01/09/21 Range/Units 05:13 Sodium 138 (137-145) mmol/L Potassium 4.5 (3.6-5.0) mmol/L Chloride 98.4 (98-107) mmol/L Carbon Dioxide 16 L (22-30) mmol/L BUN 123 H (9-20) mg/dL Creatinine 10.8 H (0.8-1.3) mg/dL Glucose 145 H (75-100) mg/dL Calcium 9.2 (8.4-10.2) mg/dL Adrenal panel 01/09/21 Range/Units 05:13 Sodium 138 (137-145) mmol/L Potassium 4.5 (3.6-5.0) mmol/L Chloride 98.4 (98-107) mmol/L Carbon Dioxide 16 L (22-30) mmol/L BUN 123 H (9-20) mg/dL Creatinine 10.8 H (0.8-1.3) mg/dL Glucose 145 H (75-100) mg/dL Calcium 9.2 (8.4-10.2) mg/dL
--- NOTE | 2021-01-09 14:25 | Progress Note ---
Assessment and Plan Acute hypoxemic respiratory failure, on mechanical ventilatory support. Severe Sepsis Peritonitis Acute small-bowel obstruction with tissue necrosis. End-stage renal disease, on dialysis. Hypertension. Crohn's disease. Gastroesophageal reflux disease. Heart failure with reduced ejection fraction. Hyperkalemia. Anemia that is normocytic. Lactic acidosis. Oropharyngeal dysphagia - added Robinul 1mg tid re: secretions - resumed Solumedrol re: ? angioedema - benadryl 25 mg IV BID X 6 doses - continue Pepcid 10 mg IV bid - schedule hydralazine and vasotech X 48 hours with hold parameters re: uncon trolled HTN - continue total parenteral nutrition - prn vasopressors for target MAP > 65 mmHg - continue wound care per RN/WCN - continue care as below otherwise; - continue to wean supplemental oxygen for target O2 sat's > 92% acutely - aspiration precautions - continue bronchodilators with pulmonary hygiene per RT - wean per pulmonary driven protocols otherwise - HD/UF per nephrology prescription for toxin and volume control - avoid nephrotoxins, renally dose all medications - continue accuchecks with glycemic control per SSI (While critically ill target blood glucose of 140-180 mg/dL; avoid hypoglycemia) - sedation prn for target RASS 0 to -1 - continue to avoid benzodiazepine's, reduce the possibility of delirium - complete AB's per ID rec's - prn analgesia per CPOT score - Maintenance of sleep-wake cycle, avoid delirium - enteral nutritional support at goal rate as tolerated (once cleared by surgeon) - G.I. & VTE prophylaxis - PT/OT/ROM exercises - continue mobility protocols for pressure ulcer prophylaxis - Monitor hemodynamics closely - continue other care per attending / other consultants - discharge planning ongoing concurrently .... Re-evaluate in am & prn CONDITION: CRITICAL PROGNOSIS: GUARDED CODE STATUS: FULL CODE The high probability of a clinically significant, sudden or life-threatening deterioration of the [respiratory, cardiovascular, GI & neurologic] system(s) required my full and direct attention, intervention and personal management. The aggregate critical care time was [36] minutes without overlap. Time includes spent on; [x] Data Review and interpretation [x] Patient assessment and monitoring of vital signs [x] Documentation [x] Medication orders and management Subjective Date of service: 01/08/21 Principal diagnosis: Ac hypoxemic resp failure; Severe Sepsis; Peritonitis; Acute SBO; ESRD; CHF Interval history: Patient is seen today for: Ac hypoxemic resp failure; Severe Sepsis; Peritonitis; Acute SBO; ESRD on Dialysis; HTN; Crohn's disease; HFrEF Seen and examined at bedside; 24hour events reviewed; nursing and respiratory care staff consulted; no adverse overnight events reported to me; resting in bed; refused BIPAP overnight; BP's running high today; no emesis or overt aspiration; still with frothy oropharyngeal secretions Objective Vital Signs - 12hr 01/08/21 01/08/21 01/08/21 02:00 02:30 03:00 Temperature Pulse Rate 84 85 86 Pulse Rate [ From Monitor] Respiratory 23 21 19 Rate Blood Pressure 164/79 170/80 170/79 O2 Sat by Pulse 97 97 97 Oximetry 01/08/21 01/08/21 01/08/21 03:30 04:00 04:30 Temperature 98.6 F Pulse Rate 88 87 86 Pulse Rate [ 81 From Monitor] Respiratory 18 22 19 Rate Blood Pressure 178/77 173/79 181/79 O2 Sat by Pulse 97 97 98 Oximetry 01/08/21 01/08/21 01/08/21 05:01 05:30 06:00 Temperature Pulse Rate 86 89 88 Pulse Rate [ From Monitor] Respiratory 18 20 19 Rate Blood Pressure 173/75 166/79 O2 Sat by Pulse 98 97 Oximetry 01/08/21 01/08/21 01/08/21 06:31 07:00 07:31 Temperature Pulse Rate 87 85 96 H Pulse Rate [ From Monitor] Respiratory 19 20 21 Rate Blood Pressure 174/70 179/77 198/88 O2 Sat by Pulse 98 Oximetry 01/08/21 01/08/21 01/08/21 08:00 08:30 09:00 Temperature 99.3 F Pulse Rate 85 83 87 Pulse Rate [ 84 From Monitor] Respiratory 19 19 20 Rate Blood Pressure 188/77 195/84 192/83 O2 Sat by Pulse 99 99 99 Oximetry 01/08/21 01/08/21 01/08/21 09:01 09:26 09:30 Temperature Pulse Rate 88 91 H Pulse Rate [ From Monitor] Respiratory 21 Rate Blood Pressure 202/80 190/76 O2 Sat by Pulse 99 98 Oximetry 01/08/21 01/08/21 01/08/21 09:33 10:00 10:30 Temperature Pulse Rate 88 79 79 Pulse Rate [ From Monitor] Respiratory 17 19 Rate Blood Pressure 190/76 170/65 185/71 O2 Sat by Pulse 98 98 Oximetry 01/08/21 01/08/21 01/08/21 11:00 12:00 13:42 Temperature 98.6 F Pulse Rate 85 86 Pulse Rate [ From Monitor] Respiratory 18 Rate Blood Pressure 187/79 196/82 O2 Sat by Pulse 98 Oximetry 01/08/21 01/08/21 13:44 13:50 Temperature Pulse Rate 86 81 Pulse Rate [ From Monitor] Respiratory Rate Blood Pressure 196/82 181/81 O2 Sat by Pulse Oximetry Constitutional: appears uncomfortable, other (elderly male with milldy increased respiratory effort) Eyes: non-icteric ENT: oropharynx moist, oropharyngeal exudate pre (clear frothy), other (? reccurent macroglossia) Neck: supple, no lymphadenopathy, no JVD Effort: normal Ascultation: Bilateral: diminished breath sounds, rhonchi (scant, bases) Percussion: Bilateral: not dull Cardiovascular: regular rate and rhythm Gastrointestinal: hypoactive bowel sounds, soft, non-tender, non-distended (protuberant), other (Midline abdominal incision ) Integumentary: other (Midline abdominal incision ) Extremities: no cyanosis, no edema, pulses normal, no ischemia or petechiae Neurologic: non-focal exam (grossly), pupils equal and round, CN II-XII normal, motor strength normal and (sedated) Psychiatric: mood appropriate, affect normal CBC and BMP: 01/07/21 08:37 01/09/21 05:13 ABG, PT/INR, D-dimer: ABG ABG pH 7.345 pH Units (7.350-7.450) L 01/07/21 17:14 POC ABG pCO2 41.4 mmHg (32.0-48.0) 01/07/21 03:07 ABG pCO2 40.3 mm Hg 01/07/21 17:14 POC ABG pO2 94.5 mmHg (83-108) 01/07/21 03:07 ABG pO2 67.4 mm Hg (80.0-90.0) L 01/07/21 17:14 POC ABG HCO3 22.7 01/07/21 03:07 ABG O2 Saturation 94.3 % (95.0-99.0) L 01/07/21 17:14 PT/INR, D-dimer PT 16.9 Sec. (12.2-14.9) H 01/01/21 12:45 INR 1.39 (0.87-1.13) H 01/01/21 12:45 Abnormal lab findings: Abnormal Labs 12/22/20 12/22/20 12/22/20 14:38 14:38 14:38 WBC RBC Hgb 11.2 L Hct 35.0 L MCV MCHC RDW 16.7 H Plt Count Lymph % (Auto) [place] % (Auto) Lymph # (Auto) [place] # (Auto) Seg Neutrophils % Seg Neuts % (Manual) 94.0 H Lymphocytes % (Manual) 5.0 L Monocytes % (Manual) Seg Neutrophils # Seg Neutrophils # Man Lymphocytes # (Manual) 0.3 L Monocytes # (Manual) PT INR ABG pH POC ABG pCO2 POC ABG pO2 ABG pO2 ABG HCO3 ABG O2 Saturation ABG Base Excess ABG Hemoglobin ABG Oxyhemoglobin ABG Sodium ABG Potassium ABG Chloride ABG Glucose Oxyhemoglobin Sodium Potassium Chloride Carbon Dioxide BUN 58 H Creatinine 13.2 H Glucose 113 H POC Glucose Lactic Acid 3.60 H* Calcium Phosphorus Magnesium Total Bilirubin 1.30 H AST ALT Alkaline Phosphatase 155 H Total Protein Albumin Triglycerides Arterial Blood Glucose Arterial Blood Ionized Calcium Crossmatch 12/22/20 12/22/20 12/23/20 16:26 17:47 05:22 WBC RBC Hgb Hct MCV MCHC RDW Plt Count Lymph % (Auto) [place] % (Auto) Lymph # (Auto) [place] # (Auto) Seg Neutrophils % Seg Neuts % (Manual) Lymphocytes % (Manual) Monocytes % (Manual) Seg Neutrophils # Seg Neutrophils # Man Lymphocytes # (Manual) Monocytes # (Manual) PT INR ABG pH POC ABG pCO2 POC ABG pO2 ABG pO2 ABG HCO3 ABG O2 Saturation ABG Base Excess ABG Hemoglobin ABG Oxyhemoglobin ABG Sodium ABG Potassium ABG Chloride ABG Glucose Oxyhemoglobin Sodium Potassium Chloride Carbon Dioxide BUN Creatinine Glucose POC Glucose Lactic Acid 2.80 H* 3.10 H* 2.30 H* Calcium Phosphorus Magnesium Total Bilirubin AST ALT Alkaline Phosphatase Total Protein Albumin Triglycerides Arterial Blood Glucose Arterial Blood Ionized Calcium Crossmatch 12/23/20 12/23/20 12/23/20 05:22 05:22 06:35 WBC 12.1 H RBC Hgb 11.0 L Hct 33.7 L MCV MCHC RDW 16.9 H Plt Count Lymph % (Auto) [place] % (Auto) Lymph # (Auto) [place] # (Auto) Seg Neutrophils % Seg Neuts % (Manual) 93.0 H Lymphocytes % (Manual) 1.0 L Monocytes % (Manual) Seg Neutrophils # Seg Neutrophils # Man 11.3 H Lymphocytes # (Manual) 0.1 L Monocytes # (Manual) PT INR ABG pH POC ABG pCO2 POC ABG pO2 ABG pO2 ABG HCO3 ABG O2 Saturation ABG Base Excess ABG Hemoglobin ABG Oxyhemoglobin ABG Sodium ABG Potassium ABG Chloride ABG Glucose Oxyhemoglobin Sodium Potassium 5.7 H D Chloride Carbon Dioxide BUN 73 H Creatinine 14.2 H Glucose POC Glucose Lactic Acid 2.30 H* Calcium 7.9 L Phosphorus Magnesium Total Bilirubin 1.40 H AST 119 H ALT 130 H Alkaline Phosphatase 183 H Total Protein 6.1 L Albumin 3.6 L Triglycerides Arterial Blood Glucose Arterial Blood Ionized Calcium Crossmatch 12/23/20 12/23/20 12/23/20 11:40 13:53 16:47 WBC RBC Hgb 10.0 L Hct 30.4 L MCV MCHC RDW Plt Count Lymph % (Auto) [place] % (Auto) Lymph # (Auto) [place] # (Auto) Seg Neutrophils % Seg Neuts % (Manual) Lymphocytes % (Manual) Monocytes % (Manual) Seg Neutrophils # Seg Neutrophils # Man Lymphocytes # (Manual) Monocytes # (Manual) PT INR ABG pH POC ABG pCO2 POC ABG pO2 137.5 H ABG pO2 ABG HCO3 ABG O2 Saturation ABG Base Excess ABG Hemoglobin 9.7 L ABG Oxyhemoglobin ABG Sodium 134.1 L ABG Potassium 6.6 H ABG Chloride ABG Glucose 103 H Oxyhemoglobin Sodium Potassium Chloride Carbon Dioxide BUN Creatinine Glucose POC Glucose Lactic Acid Calcium Phosphorus Magnesium Total Bilirubin AST ALT Alkaline Phosphatase Total Protein Albumin Triglycerides Arterial Blood Glucose 103 H Arterial Blood Ionized Calcium 3.8 L Crossmatch See Detail 12/23/20 12/23/20 12/24/20 20:35 20:40 01:20 WBC RBC Hgb Hct MCV MCHC RDW Plt Count Lymph % (Auto) [place] % (Auto) Lymph # (Auto) [place] # (Auto) Seg Neutrophils % Seg Neuts % (Manual) Lymphocytes % (Manual) Monocytes % (Manual) Seg Neutrophils # Seg Neutrophils # Man Lymphocytes # (Manual) Monocytes # (Manual) PT INR ABG pH 7.252 L POC ABG pCO2 POC ABG pO2 ABG pO2 50.1 L ABG HCO3 ABG O2 Saturation 81.1 L ABG Base Excess -5.9 L ABG Hemoglobin 12.1 L ABG Oxyhemoglobin ABG Sodium ABG Potassium ABG Chloride ABG Glucose Oxyhemoglobin 78.6 L Sodium 134 L Potassium 6.9 H* D 6.3 H* Chloride Carbon Dioxide 18 L 20 L BUN 87 H 91 H Creatinine 15.3 H 15.3 H Glucose 103 H POC Glucose Lactic Acid Calcium 6.9 L 7.5 L Phosphorus Magnesium Total Bilirubin AST ALT Alkaline Phosphatase Total Protein Albumin Triglycerides Arterial Blood Glucose Arterial Blood Ionized Calcium Crossmatch 12/24/20 12/24/20 12/24/20 04:00 10:29 10:29 WBC RBC 3.49 L Hgb 10.5 L Hct 31.2 L MCV MCHC RDW 17.5 H Plt Count 124 L Lymph % (Auto) 3.7 L [place] % (Auto) 9.8 H Lymph # (Auto) 0.2 L [place] # (Auto) Seg Neutrophils % 85.9 H Seg Neuts % (Manual) Lymphocytes % (Manual) Monocytes % (Manual) Seg Neutrophils # Seg Neutrophils # Man Lymphocytes # (Manual) Monocytes # (Manual) PT INR ABG pH POC ABG pCO2 28.1 L POC ABG pO2 ABG pO2 ABG HCO3 ABG O2 Saturation ABG Base Excess ABG Hemoglobin ABG Oxyhemoglobin ABG Sodium 133.9 L ABG Potassium 5.3 H ABG Chloride 108.0 H ABG Glucose Oxyhemoglobin Sodium Potassium 5.6 H Chloride Carbon Dioxide 19 L BUN 99 H Creatinine 16.9 H Glucose 52 L POC Glucose Lactic Acid Calcium 7.6 L Phosphorus Magnesium Total Bilirubin 3.50 H AST 67 H ALT 71 H Alkaline Phosphatase Total Protein 3.5 L D Albumin 2.1 L Triglycerides Arterial Blood Glucose Arterial Blood Ionized Calcium 4.0 L Crossmatch 12/25/20 12/25/20 12/25/20 03:33 04:00 04:00 WBC 3.8 L RBC 2.90 L Hgb 8.6 L Hct 25.7 L MCV MCHC RDW 16.7 H Plt Count 113 L Lymph % (Auto) [place] % (Auto) Lymph # (Auto) [place] # (Auto) Seg Neutrophils % Seg Neuts % (Manual) Lymphocytes % (Manual) Monocytes % (Manual) Seg Neutrophils # Seg Neutrophils # Man Lymphocytes # (Manual) Monocytes # (Manual) PT INR ABG pH 7.544 H POC ABG pCO2 28.2 L POC ABG pO2 62.8 L ABG pO2 ABG HCO3 ABG O2 Saturation ABG Base Excess ABG Hemoglobin 9.3 L ABG Oxyhemoglobin 93.0 L ABG Sodium 130.3 L ABG Potassium ABG Chloride ABG Glucose 97 H Oxyhemoglobin Sodium Potassium Chloride Carbon Dioxide BUN 62 H Creatinine 11.4 H Glucose POC Glucose Lactic Acid Calcium 7.7 L Phosphorus 5.00 H Magnesium Total Bilirubin AST ALT Alkaline Phosphatase Total Protein Albumin Triglycerides Arterial Blood Glucose 97 H Arterial Blood Ionized Calcium 3.9 L Crossmatch 12/26/20 12/26/20 12/27/20 04:46 Unknown 03:40 WBC 4.1 L RBC 2.61 L Hgb 7.8 L Hct 23.4 L MCV MCHC RDW 17.1 H Plt Count 119 L Lymph % (Auto) 5.3 L [place] % (Auto) 10.6 H Lymph # (Auto) 0.2 L [place] # (Auto) Seg Neutrophils % 78.8 H Seg Neuts % (Manual) Lymphocytes % (Manual) Monocytes % (Manual) Seg Neutrophils # Seg Neutrophils # Man Lymphocytes # (Manual) Monocytes # (Manual) PT INR ABG pH 7.333 L 7.332 L POC ABG pCO2 POC ABG pO2 ABG pO2 ABG HCO3 26.9 H ABG O2 Saturation ABG Base Excess -2.4 L ABG Hemoglobin 6.8 L 7.2 L ABG Oxyhemoglobin ABG Sodium ABG Potassium ABG Chloride ABG Glucose Oxyhemoglobin 93.0 L 93.1 L Sodium Potassium Chloride Carbon Dioxide BUN Creatinine Glucose POC Glucose Lactic Acid Calcium Phosphorus Magnesium Total Bilirubin AST ALT Alkaline Phosphatase Total Protein Albumin Triglycerides Arterial Blood Glucose Arterial Blood Ionized Calcium Crossmatch 12/27/20 12/27/20 12/27/20 06:40 06:40 11:22 WBC 4.4 L RBC 2.49 L Hgb 7.4 L Hct 22.4 L MCV MCHC RDW 17.1 H Plt Count 111 L Lymph % (Auto) 6.7 L [place] % (Auto) 12.6 H Lymph # (Auto) 0.3 L [place] # (Auto) Seg Neutrophils % 77.6 H Seg Neuts % (Manual) Lymphocytes % (Manual) Monocytes % (Manual) Seg Neutrophils # Seg Neutrophils # Man Lymphocytes # (Manual) Monocytes # (Manual) PT INR ABG pH POC ABG pCO2 POC ABG pO2 ABG pO2 ABG HCO3 ABG O2 Saturation ABG Base Excess ABG Hemoglobin ABG Oxyhemoglobin ABG Sodium ABG Potassium ABG Chloride ABG Glucose Oxyhemoglobin Sodium Potassium Chloride Carbon Dioxide BUN 64 H Creatinine 9.8 H Glucose 147 H POC Glucose 134 H Lactic Acid Calcium 8.3 L Phosphorus 5.00 H Magnesium Total Bilirubin 3.70 H AST 72 H ALT Alkaline Phosphatase 142 H Total Protein 5.1 L D Albumin 2.9 L Triglycerides Arterial Blood Glucose Arterial Blood Ionized Calcium Crossmatch 12/27/20 12/27/20 12/28/20 17:29 23:31 03:09 WBC RBC Hgb Hct MCV MCHC RDW Plt Count Lymph % (Auto) [place] % (Auto) Lymph # (Auto) [place] # (Auto) Seg Neutrophils % Seg Neuts % (Manual) Lymphocytes % (Manual) Monocytes % (Manual) Seg Neutrophils # Seg Neutrophils # Man Lymphocytes # (Manual) Monocytes # (Manual) PT INR ABG pH 7.474 H POC ABG pCO2 POC ABG pO2 ABG pO2 ABG HCO3 ABG O2 Saturation ABG Base Excess ABG Hemoglobin 7.8 L ABG Oxyhemoglobin ABG Sodium ABG Potassium ABG Chloride ABG Glucose Oxyhemoglobin Sodium Potassium Chloride Carbon Dioxide BUN Creatinine Glucose POC Glucose 121 H 131 H Lactic Acid Calcium Phosphorus Magnesium Total Bilirubin AST ALT Alkaline Phosphatase Total Protein Albumin Triglycerides Arterial Blood Glucose Arterial Blood Ionized Calcium Crossmatch 12/28/20 12/28/20 12/28/20 05:37 05:40 05:40 WBC 4.3 L RBC 2.40 L Hgb 7.2 L Hct 21.5 L MCV MCHC RDW 17.4 H Plt Count 112 L Lymph % (Auto) 6.5 L [place] % (Auto) 16.7 H Lymph # (Auto) 0.3 L [place] # (Auto) Seg Neutrophils % 71.1 H Seg Neuts % (Manual) Lymphocytes % (Manual) Monocytes % (Manual) Seg Neutrophils # Seg Neutrophils # Man Lymphocytes # (Manual) Monocytes # (Manual) PT INR ABG pH POC ABG pCO2 POC ABG pO2 ABG pO2 ABG HCO3 ABG O2 Saturation ABG Base Excess ABG Hemoglobin ABG Oxyhemoglobin ABG Sodium ABG Potassium ABG Chloride ABG Glucose Oxyhemoglobin Sodium Potassium Chloride Carbon Dioxide BUN 85 H Creatinine 11.5 H Glucose 132 H POC Glucose 121 H Lactic Acid Calcium 8.2 L Phosphorus Magnesium 2.40 H Total Bilirubin 3.80 H AST 70 H ALT Alkaline Phosphatase 176 H Total Protein 5.0 L Albumin 2.9 L Triglycerides Arterial Blood Glucose Arterial Blood Ionized Calcium Crossmatch 12/28/20 12/28/20 12/28/20 11:34 15:00 17:35 WBC RBC Hgb Hct MCV MCHC RDW Plt Count Lymph % (Auto) [place] % (Auto) Lymph # (Auto) [place] # (Auto) Seg Neutrophils % Seg Neuts % (Manual) Lymphocytes % (Manual) Monocytes % (Manual) Seg Neutrophils # Seg Neutrophils # Man Lymphocytes # (Manual) Monocytes # (Manual) PT INR ABG pH 7.461 H POC ABG pCO2 POC ABG pO2 72.2 L ABG pO2 ABG HCO3 ABG O2 Saturation ABG Base Excess ABG Hemoglobin 8.2 L ABG Oxyhemoglobin 93.6 L ABG Sodium 134.1 L ABG Potassium 3.2 L ABG Chloride ABG Glucose 135 H Oxyhemoglobin Sodium Potassium Chloride Carbon Dioxide BUN Creatinine Glucose POC Glucose 137 H 144 H Lactic Acid Calcium Phosphorus Magnesium Total Bilirubin AST ALT Alkaline Phosphatase Total Protein Albumin Triglycerides Arterial Blood Glucose 135 H Arterial Blood Ionized Calcium 4.4 L Crossmatch 12/28/20 12/28/20 12/29/20 19:44 Unknown 00:21 WBC RBC Hgb Hct MCV MCHC RDW Plt Count Lymph % (Auto) [place] % (Auto) Lymph # (Auto) [place] # (Auto) Seg Neutrophils % Seg Neuts % (Manual) Lymphocytes % (Manual) Monocytes % (Manual) Seg Neutrophils # Seg Neutrophils # Man Lymphocytes # (Manual) Monocytes # (Manual) PT INR ABG pH 7.474 H POC ABG pCO2 POC ABG pO2 ABG pO2 ABG HCO3 ABG O2 Saturation ABG Base Excess ABG Hemoglobin 7.8 L ABG Oxyhemoglobin ABG Sodium 133.2 L ABG Potassium ABG Chloride ABG Glucose 139 H Oxyhemoglobin Sodium 135 L Potassium Chloride 96.6 L Carbon Dioxide BUN 47 H Creatinine 7.4 H Glucose 130 H POC Glucose 142 H Lactic Acid Calcium 8.3 L Phosphorus Magnesium Total Bilirubin AST ALT Alkaline Phosphatase Total Protein Albumin Triglycerides Arterial Blood Glucose 139 H Arterial Blood Ionized Calcium 4.3 L Crossmatch 12/29/20 12/29/20 12/29/20 05:16 05:16 05:26 WBC RBC 2.53 L Hgb 7.7 L Hct 22.8 L MCV MCHC RDW 17.0 H Plt Count 130 L Lymph % (Auto) [place] % (Auto) Lymph # (Auto) [place] # (Auto) Seg Neutrophils % Seg Neuts % (Manual) 79.0 H Lymphocytes % (Manual) 9.0 L Monocytes % (Manual) Seg Neutrophils # Seg Neutrophils # Man Lymphocytes # (Manual) 0.6 L Monocytes # (Manual) PT INR ABG pH POC ABG pCO2 POC ABG pO2 ABG pO2 ABG HCO3 ABG O2 Saturation ABG Base Excess ABG Hemoglobin ABG Oxyhemoglobin ABG Sodium ABG Potassium ABG Chloride ABG Glucose Oxyhemoglobin Sodium Potassium 3.4 L Chloride 96.6 L Carbon Dioxide BUN 59 H Creatinine 8.3 H Glucose 127 H POC Glucose 141 H Lactic Acid Calcium 8.2 L Phosphorus Magnesium Total Bilirubin 3.00 H AST 88 H ALT Alkaline Phosphatase 188 H Total Protein 5.1 L Albumin 2.8 L Triglycerides Arterial Blood Glucose Arterial Blood Ionized Calcium Crossmatch 12/29/20 12/29/20 12/29/20 11:33 17:29 23:22 WBC RBC Hgb Hct MCV MCHC RDW Plt Count Lymph % (Auto) [place] % (Auto) Lymph # (Auto) [place] # (Auto) Seg Neutrophils % Seg Neuts % (Manual) Lymphocytes % (Manual) Monocytes % (Manual) Seg Neutrophils # Seg Neutrophils # Man Lymphocytes # (Manual) Monocytes # (Manual) PT INR ABG pH POC ABG pCO2 POC ABG pO2 ABG pO2 ABG HCO3 ABG O2 Saturation ABG Base Excess ABG Hemoglobin ABG Oxyhemoglobin ABG Sodium ABG Potassium ABG Chloride ABG Glucose Oxyhemoglobin Sodium Potassium Chloride Carbon Dioxide BUN Creatinine Glucose POC Glucose 144 H 130 H 117 H Lactic Acid Calcium Phosphorus Magnesium Total Bilirubin AST ALT Alkaline Phosphatase Total Protein Albumin Triglycerides Arterial Blood Glucose Arterial Blood Ionized Calcium Crossmatch 05/03/1512/30/20 12/30/20 05:23 08:15 09:00 WBC RBC Hgb Hct MCV MCHC RDW Plt Count Lymph % (Auto) [place] % (Auto) Lymph # (Auto) [place] # (Auto) Seg Neutrophils % Seg Neuts % (Manual) Lymphocytes % (Manual) Monocytes % (Manual) Seg Neutrophils # Seg Neutrophils # Man Lymphocytes # (Manual) Monocytes # (Manual) PT INR ABG pH POC ABG pCO2 POC ABG pO2 ABG pO2 ABG HCO3 ABG O2 Saturation ABG Base Excess ABG Hemoglobin ABG Oxyhemoglobin ABG Sodium ABG Potassium ABG Chloride ABG Glucose Oxyhemoglobin Sodium 135 L Potassium Chloride 95.9 L Carbon Dioxide BUN 85 H Creatinine 10.6 H Glucose 128 H POC Glucose 135 H 127 H Lactic Acid Calcium 8.3 L Phosphorus Magnesium Total Bilirubin 2.40 H AST 85 H ALT Alkaline Phosphatase 216 H Total Protein 5.3 L Albumin 2.6 L Triglycerides 155 H Arterial Blood Glucose Arterial Blood Ionized Calcium Crossmatch 12/30/20 12/30/20 12/30/20 09:00 11:53 15:49 WBC RBC 2.61 L Hgb 7.8 L Hct 23.7 L MCV MCHC RDW 17.3 H Plt Count Lymph % (Auto) [place] % (Auto) Lymph # (Auto) [place] # (Auto) Seg Neutrophils % Seg Neuts % (Manual) Lymphocytes % (Manual) Monocytes % (Manual) Seg Neutrophils # Seg Neutrophils # Man Lymphocytes # (Manual) Monocytes # (Manual) PT INR ABG pH POC ABG pCO2 POC ABG pO2 ABG pO2 ABG HCO3 ABG O2 Saturation ABG Base Excess ABG Hemoglobin ABG Oxyhemoglobin ABG Sodium ABG Potassium ABG Chloride ABG Glucose Oxyhemoglobin Sodium Potassium Chloride Carbon Dioxide BUN Creatinine Glucose POC Glucose 155 H 146 H Lactic Acid Calcium Phosphorus Magnesium Total Bilirubin AST ALT Alkaline Phosphatase Total Protein Albumin Triglycerides Arterial Blood Glucose Arterial Blood Ionized Calcium Crossmatch 12/30/20 12/30/20 12/31/20 17:53 23:45 03:56 WBC RBC Hgb Hct MCV MCHC RDW Plt Count Lymph % (Auto) [place] % (Auto) Lymph # (Auto) [place] # (Auto) Seg Neutrophils % Seg Neuts % (Manual) Lymphocytes % (Manual) Monocytes % (Manual) Seg Neutrophils # Seg Neutrophils # Man Lymphocytes # (Manual) Monocytes # (Manual) PT INR ABG pH POC ABG pCO2 POC ABG pO2 49.4 L ABG pO2 ABG HCO3 ABG O2 Saturation ABG Base Excess ABG Hemoglobin 10.3 L ABG Oxyhemoglobin 84.2 L ABG Sodium 133.1 L ABG Potassium ABG Chloride ABG Glucose 173 H Oxyhemoglobin Sodium Potassium Chloride Carbon Dioxide BUN Creatinine Glucose POC Glucose 139 H 173 H Lactic Acid Calcium Phosphorus Magnesium Total Bilirubin AST ALT Alkaline Phosphatase Total Protein Albumin Triglycerides Arterial Blood Glucose 173 H Arterial Blood Ionized Calcium Crossmatch 12/31/20 12/31/20 12/31/20 05:07 06:51 06:51 WBC 20.3 H RBC 3.32 L Hgb 9.8 L Hct 30.3 L D MCV MCHC RDW 17.3 H Plt Count Lymph % (Auto) [place] % (Auto) Lymph # (Auto) [place] # (Auto) Seg Neutrophils % Seg Neuts % (Manual) 87.0 H Lymphocytes % (Manual) 10.0 L Monocytes % (Manual) Seg Neutrophils # Seg Neutrophils # Man 17.7 H Lymphocytes # (Manual) Monocytes # (Manual) PT INR ABG pH POC ABG pCO2 POC ABG pO2 ABG pO2 ABG HCO3 ABG O2 Saturation ABG Base Excess ABG Hemoglobin ABG Oxyhemoglobin ABG Sodium ABG Potassium ABG Chloride ABG Glucose Oxyhemoglobin Sodium Potassium 5.2 H D Chloride Carbon Dioxide BUN 62 H Creatinine 8.4 H Glucose 116 H POC Glucose 120 H Lactic Acid Calcium Phosphorus Magnesium 1.60 L Total Bilirubin AST ALT Alkaline Phosphatase Total Protein Albumin Triglycerides Arterial Blood Glucose Arterial Blood Ionized Calcium Crossmatch 12/31/20 12/31/20 12/31/20 09:38 12:19 12:22 WBC RBC Hgb Hct MCV MCHC RDW Plt Count Lymph % (Auto) [place] % (Auto) Lymph # (Auto) [place] # (Auto) Seg Neutrophils % Seg Neuts % (Manual) Lymphocytes % (Manual) Monocytes % (Manual) Seg Neutrophils # Seg Neutrophils # Man Lymphocytes # (Manual) Monocytes # (Manual) PT INR ABG pH POC ABG pCO2 POC ABG pO2 ABG pO2 354.0 H ABG HCO3 ABG O2 Saturation 99.6 H ABG Base Excess ABG Hemoglobin 9.1 L ABG Oxyhemoglobin ABG Sodium ABG Potassium ABG Chloride ABG Glucose Oxyhemoglobin Sodium Potassium 5.2 H Chloride Carbon Dioxide BUN Creatinine Glucose POC Glucose 132 H Lactic Acid Calcium Phosphorus Magnesium Total Bilirubin AST ALT Alkaline Phosphatase Total Protein Albumin Triglycerides Arterial Blood Glucose Arterial Blood Ionized Calcium Crossmatch 12/31/20 01/01/21 01/01/21 23:23 03:03 05:04 WBC RBC Hgb Hct MCV MCHC RDW Plt Count Lymph % (Auto) [place] % (Auto) Lymph # (Auto) [place] # (Auto) Seg Neutrophils % Seg Neuts % (Manual) Lymphocytes % (Manual) Monocytes % (Manual) Seg Neutrophils # Seg Neutrophils # Man Lymphocytes # (Manual) Monocytes # (Manual) PT INR ABG pH POC ABG pCO2 POC ABG pO2 79.6 L ABG pO2 ABG HCO3 ABG O2 Saturation ABG Base Excess ABG Hemoglobin 9.2 L ABG Oxyhemoglobin ABG Sodium 131.6 L ABG Potassium 5.8 H ABG Chloride ABG Glucose 177 H Oxyhemoglobin Sodium Potassium Chloride Carbon Dioxide BUN Creatinine Glucose POC Glucose 174 H 167 H Lactic Acid Calcium Phosphorus Magnesium Total Bilirubin AST ALT Alkaline Phosphatase Total Protein Albumin Triglycerides Arterial Blood Glucose 177 H Arterial Blood Ionized Calcium Crossmatch 01/01/21 01/01/21 01/01/21 07:31 07:31 11:31 WBC 26.1 H RBC 2.95 L Hgb 8.6 L Hct 27.1 L MCV MCHC RDW 18.2 H Plt Count Lymph % (Auto) [place] % (Auto) Lymph # (Auto) [place] # (Auto) Seg Neutrophils % Seg Neuts % (Manual) 96.0 H Lymphocytes % (Manual) 4.0 L Monocytes % (Manual) Seg Neutrophils # Seg Neutrophils # Man 25.1 H Lymphocytes # (Manual) 1.0 L Monocytes # (Manual) PT INR ABG pH POC ABG pCO2 POC ABG pO2 ABG pO2 ABG HCO3 ABG O2 Saturation ABG Base Excess ABG Hemoglobin ABG Oxyhemoglobin ABG Sodium ABG Potassium ABG Chloride ABG Glucose Oxyhemoglobin Sodium Potassium 6.0 H Chloride Carbon Dioxide 21 L BUN 89 H Creatinine 10.5 H Glucose 179 H POC Glucose Lactic Acid Calcium Phosphorus Magnesium Total Bilirubin AST ALT Alkaline Phosphatase Total Protein Albumin Triglycerides Arterial Blood Glucose Arterial Blood Ionized Calcium Crossmatch See Detail 01/01/21 01/01/21 01/01/21 11:51 12:45 16:52 WBC RBC Hgb Hct MCV MCHC RDW Plt Count Lymph % (Auto) [place] % (Auto) Lymph # (Auto) [place] # (Auto) Seg Neutrophils % Seg Neuts % (Manual) Lymphocytes % (Manual) Monocytes % (Manual) Seg Neutrophils # Seg Neutrophils # Man Lymphocytes # (Manual) Monocytes # (Manual) PT 16.9 H INR 1.39 H ABG pH POC ABG pCO2 POC ABG pO2 ABG pO2 ABG HCO3 ABG O2 Saturation ABG Base Excess ABG Hemoglobin ABG Oxyhemoglobin ABG Sodium ABG Potassium ABG Chloride ABG Glucose Oxyhemoglobin Sodium Potassium Chloride Carbon Dioxide BUN Creatinine Glucose POC Glucose 157 H 177 H Lactic Acid Calcium Phosphorus Magnesium Total Bilirubin AST ALT Alkaline Phosphatase Total Protein Albumin Triglycerides Arterial Blood Glucose Arterial Blood Ionized Calcium Crossmatch 01/01/21 01/01/21 01/01/21 17:58 17:58 20:12 WBC 26.9 H RBC 3.14 L Hgb 9.3 L Hct 29.6 L MCV MCHC RDW 17.5 H Plt Count Lymph % (Auto) [place] % (Auto) Lymph # (Auto) [place] # (Auto) Seg Neutrophils % Seg Neuts % (Manual) 84.0 H Lymphocytes % (Manual) 4.0 L Monocytes % (Manual) 12.0 H Seg Neutrophils # Seg Neutrophils # Man 22.6 H Lymphocytes # (Manual) 1.1 L Monocytes # (Manual) 3.2 H PT INR ABG pH POC ABG pCO2 POC ABG pO2 ABG pO2 ABG HCO3 ABG O2 Saturation ABG Base Excess ABG Hemoglobin ABG Oxyhemoglobin ABG Sodium ABG Potassium ABG Chloride ABG Glucose Oxyhemoglobin Sodium 136 L Potassium 6.2 H* Chloride Carbon Dioxide 21 L BUN 92 H Creatinine 10.8 H Glucose 171 H POC Glucose 288 H Lactic Acid Calcium Phosphorus Magnesium Total Bilirubin 2.10 H AST 223 H ALT 100 H Alkaline Phosphatase 206 H Total Protein 4.8 L Albumin 1.9 L Triglycerides Arterial Blood Glucose Arterial Blood Ionized Calcium Crossmatch 01/02/21 01/02/21 01/02/21 00:12 00:45 03:05 WBC RBC Hgb Hct MCV MCHC RDW Plt Count Lymph % (Auto) [place] % (Auto) Lymph # (Auto) [place] # (Auto) Seg Neutrophils % Seg Neuts % (Manual) Lymphocytes % (Manual) Monocytes % (Manual) Seg Neutrophils # Seg Neutrophils # Man Lymphocytes # (Manual) Monocytes # (Manual) PT INR ABG pH POC ABG pCO2 POC ABG pO2 81.8 L ABG pO2 ABG HCO3 ABG O2 Saturation ABG Base Excess ABG Hemoglobin 8.0 L ABG Oxyhemoglobin ABG Sodium 129.8 L ABG Potassium 5.4 H ABG Chloride ABG Glucose 257 H Oxyhemoglobin Sodium 136 L Potassium 5.8 H Chloride 96.6 L Carbon Dioxide BUN 95 H Creatinine 11.2 H Glucose 238 H POC Glucose 223 H Lactic Acid Calcium Phosphorus Magnesium Total Bilirubin AST ALT Alkaline Phosphatase Total Protein Albumin Triglycerides Arterial Blood Glucose 257 H Arterial Blood Ionized Calcium 4.0 L Crossmatch 01/02/21 01/02/21 01/02/21 06:25 08:00 08:00 WBC 17.5 H RBC 2.31 L Hgb 6.7 L Hct 22.1 L D MCV 96 H MCHC 30 L RDW 18.4 H Plt Count Lymph % (Auto) [place] % (Auto) Lymph # (Auto) [place] # (Auto) Seg Neutrophils % Seg Neuts % (Manual) Lymphocytes % (Manual) Monocytes % (Manual) Seg Neutrophils # Seg Neutrophils # Man Lymphocytes # (Manual) Monocytes # (Manual) PT INR ABG pH POC ABG pCO2 POC ABG pO2 ABG pO2 ABG HCO3 ABG O2 Saturation ABG Base Excess ABG Hemoglobin ABG Oxyhemoglobin ABG Sodium ABG Potassium ABG Chloride ABG Glucose Oxyhemoglobin Sodium 134 L Potassium 5.3 H Chloride 92.9 L Carbon Dioxide BUN 101 H Creatinine 10.9 H Glucose 560 H* POC Glucose 239 H Lactic Acid Calcium 7.6 L Phosphorus 6.50 H Magnesium Total Bilirubin AST ALT Alkaline Phosphatase Total Protein Albumin Triglycerides Arterial Blood Glucose Arterial Blood Ionized Calcium Crossmatch 01/02/21 01/02/21 01/02/21 11:26 15:00 17:57 WBC RBC Hgb Hct MCV MCHC RDW Plt Count Lymph % (Auto) [place] % (Auto) Lymph # (Auto) [place] # (Auto) Seg Neutrophils % Seg Neuts % (Manual) Lymphocytes % (Manual) Monocytes % (Manual) Seg Neutrophils # Seg Neutrophils # Man Lymphocytes # (Manual) Monocytes # (Manual) PT INR ABG pH POC ABG pCO2 POC ABG pO2 ABG pO2 ABG HCO3 ABG O2 Saturation ABG Base Excess ABG Hemoglobin ABG Oxyhemoglobin ABG Sodium ABG Potassium ABG Chloride ABG Glucose Oxyhemoglobin Sodium Potassium Chloride Carbon Dioxide BUN Creatinine Glucose 241 H POC Glucose 205 H 272 H Lactic Acid Calcium Phosphorus Magnesium Total Bilirubin AST ALT Alkaline Phosphatase Total Protein Albumin Triglycerides Arterial Blood Glucose Arterial Blood Ionized Calcium Crossmatch 01/02/21 01/02/21 01/03/21 23:25 23:43 03:45 WBC RBC Hgb Hct MCV MCHC RDW Plt Count Lymph % (Auto) [place] % (Auto) Lymph # (Auto) [place] # (Auto) Seg Neutrophils % Seg Neuts % (Manual) Lymphocytes % (Manual) Monocytes % (Manual) Seg Neutrophils # Seg Neutrophils # Man Lymphocytes # (Manual) Monocytes # (Manual) PT INR ABG pH POC ABG pCO2 48.3 H POC ABG pO2 134.4 H 79.7 L ABG pO2 ABG HCO3 ABG O2 Saturation ABG Base Excess ABG Hemoglobin 7.7 L 8.6 L ABG Oxyhemoglobin ABG Sodium 131.8 L 130.4 L ABG Potassium ABG Chloride 97.0 L ABG Glucose 218 H 238 H Oxyhemoglobin Sodium Potassium Chloride Carbon Dioxide BUN Creatinine Glucose POC Glucose 218 H Lactic Acid Calcium Phosphorus Magnesium Total Bilirubin AST ALT Alkaline Phosphatase Total Protein Albumin Triglycerides Arterial Blood Glucose 218 H 238 H Arterial Blood Ionized Calcium 4.1 L 4.0 L Crossmatch 01/03/21 01/03/21 01/03/21 04:37 04:37 05:39 WBC 15.2 H RBC 2.38 L Hgb 7.3 L Hct 21.6 L MCV MCHC RDW 16.6 H Plt Count Lymph % (Auto) [place] % (Auto) Lymph # (Auto) [place] # (Auto) Seg Neutrophils % Seg Neuts % (Manual) Lymphocytes % (Manual) Monocytes % (Manual) Seg Neutrophils # Seg Neutrophils # Man Lymphocytes # (Manual) Monocytes # (Manual) PT INR ABG pH POC ABG pCO2 POC ABG pO2 ABG pO2 ABG HCO3 ABG O2 Saturation ABG Base Excess ABG Hemoglobin ABG Oxyhemoglobin ABG Sodium ABG Potassium ABG Chloride ABG Glucose Oxyhemoglobin Sodium 136 L Potassium Chloride 94.5 L Carbon Dioxide BUN 69 H Creatinine 8.0 H Glucose 219 H POC Glucose 222 H Lactic Acid Calcium 7.8 L Phosphorus 4.80 H D Magnesium Total Bilirubin AST ALT Alkaline Phosphatase Total Protein Albumin Triglycerides Arterial Blood Glucose Arterial Blood Ionized Calcium Crossmatch 01/03/21 01/03/21 01/03/21 11:29 18:49 23:37 WBC RBC Hgb Hct MCV MCHC RDW Plt Count Lymph % (Auto) [place] % (Auto) Lymph # (Auto) [place] # (Auto) Seg Neutrophils % Seg Neuts % (Manual) Lymphocytes % (Manual) Monocytes % (Manual) Seg Neutrophils # Seg Neutrophils # Man Lymphocytes # (Manual) Monocytes # (Manual) PT INR ABG pH POC ABG pCO2 POC ABG pO2 ABG pO2 ABG HCO3 ABG O2 Saturation ABG Base Excess ABG Hemoglobin ABG Oxyhemoglobin ABG Sodium ABG Potassium ABG Chloride ABG Glucose Oxyhemoglobin Sodium Potassium Chloride Carbon Dioxide BUN Creatinine Glucose POC Glucose 232 H 129 H 140 H Lactic Acid Calcium Phosphorus Magnesium Total Bilirubin AST ALT Alkaline Phosphatase Total Protein Albumin Triglycerides Arterial Blood Glucose Arterial Blood Ionized Calcium Crossmatch 01/04/21 01/04/21 01/04/21 03:22 04:38 04:38 WBC 11.1 H RBC 2.89 L Hgb 8.9 L Hct 26.2 L MCV MCHC RDW 16.1 H Plt Count Lymph % (Auto) [place] % (Auto) Lymph # (Auto) [place] # (Auto) Seg Neutrophils % Seg Neuts % (Manual) Lymphocytes % (Manual) Monocytes % (Manual) Seg Neutrophils # Seg Neutrophils # Man Lymphocytes # (Manual) Monocytes # (Manual) PT INR ABG pH POC ABG pCO2 POC ABG pO2 82.3 L ABG pO2 ABG HCO3 ABG O2 Saturation ABG Base Excess ABG Hemoglobin 8.9 L ABG Oxyhemoglobin ABG Sodium 130.5 L ABG Potassium ABG Chloride ABG Glucose 124 H Oxyhemoglobin Sodium Potassium Chloride 95.5 L Carbon Dioxide BUN 87 H Creatinine 9.7 H Glucose 118 H POC Glucose Lactic Acid Calcium 7.7 L Phosphorus Magnesium Total Bilirubin AST ALT Alkaline Phosphatase Total Protein Albumin Triglycerides Arterial Blood Glucose 124 H Arterial Blood Ionized Calcium 3.5 L Crossmatch 01/04/21 01/04/21 01/04/21 05:39 12:04 18:04 WBC RBC Hgb Hct MCV MCHC RDW Plt Count Lymph % (Auto) [place] % (Auto) Lymph # (Auto) [place] # (Auto) Seg Neutrophils % Seg Neuts % (Manual) Lymphocytes % (Manual) Monocytes % (Manual) Seg Neutrophils # Seg Neutrophils # Man Lymphocytes # (Manual) Monocytes # (Manual) PT INR ABG pH POC ABG pCO2 POC ABG pO2 ABG pO2 ABG HCO3 ABG O2 Saturation ABG Base Excess ABG Hemoglobin ABG Oxyhemoglobin ABG Sodium ABG Potassium ABG Chloride ABG Glucose Oxyhemoglobin Sodium Potassium Chloride Carbon Dioxide BUN Creatinine Glucose POC Glucose 134 H 125 H 131 H Lactic Acid Calcium Phosphorus Magnesium Total Bilirubin AST ALT Alkaline Phosphatase Total Protein Albumin Triglycerides Arterial Blood Glucose Arterial Blood Ionized Calcium Crossmatch 01/04/21 01/05/21 01/05/21 23:41 03:23 04:49 WBC RBC Hgb Hct MCV MCHC RDW Plt Count Lymph % (Auto) [place] % (Auto) Lymph # (Auto) [place] # (Auto) Seg Neutrophils % Seg Neuts % (Manual) Lymphocytes % (Manual) Monocytes % (Manual) Seg Neutrophils # Seg Neutrophils # Man Lymphocytes # (Manual) Monocytes # (Manual) PT INR ABG pH POC ABG pCO2 POC ABG pO2 62.8 L ABG pO2 ABG HCO3 ABG O2 Saturation ABG Base Excess ABG Hemoglobin 9.5 L ABG Oxyhemoglobin 92.0 L ABG Sodium 130.1 L ABG Potassium ABG Chloride ABG Glucose 148 H Oxyhemoglobin Sodium Potassium Chloride 96.9 L Carbon Dioxide BUN 57 H Creatinine 6.7 H Glucose 135 H POC Glucose 132 H Lactic Acid Calcium 8.0 L Phosphorus Magnesium Total Bilirubin AST ALT Alkaline Phosphatase Total Protein Albumin Triglycerides Arterial Blood Glucose 148 H Arterial Blood Ionized Calcium 4.1 L Crossmatch 01/05/21 01/05/21 01/05/21 05:04 11:48 12:39 WBC RBC 3.03 L Hgb 9.3 L Hct 27.6 L MCV MCHC RDW 16.5 H Plt Count Lymph % (Auto) [place] % (Auto) Lymph # (Auto) [place] # (Auto) Seg Neutrophils % Seg Neuts % (Manual) Lymphocytes % (Manual) Monocytes % (Manual) Seg Neutrophils # Seg Neutrophils # Man Lymphocytes # (Manual) Monocytes # (Manual) PT INR ABG pH POC ABG pCO2 POC ABG pO2 ABG pO2 ABG HCO3 ABG O2 Saturation ABG Base Excess ABG Hemoglobin ABG Oxyhemoglobin ABG Sodium ABG Potassium ABG Chloride ABG Glucose Oxyhemoglobin Sodium Potassium Chloride Carbon Dioxide BUN Creatinine Glucose POC Glucose 147 H 162 H Lactic Acid Calcium Phosphorus Magnesium Total Bilirubin AST ALT Alkaline Phosphatase Total Protein Albumin Triglycerides Arterial Blood Glucose Arterial Blood Ionized Calcium Crossmatch 01/05/21 01/05/21 01/06/21 17:50 23:32 04:15 WBC RBC Hgb Hct MCV MCHC RDW Plt Count Lymph % (Auto) [place] % (Auto) Lymph # (Auto) [place] # (Auto) Seg Neutrophils % Seg Neuts % (Manual) Lymphocytes % (Manual) Monocytes % (Manual) Seg Neutrophils # Seg Neutrophils # Man Lymphocytes # (Manual) Monocytes # (Manual) PT INR ABG pH POC ABG pCO2 POC ABG pO2 ABG pO2 191.0 H ABG HCO3 ABG O2 Saturation 99.2 H ABG Base Excess ABG Hemoglobin 9.0 L ABG Oxyhemoglobin ABG Sodium ABG Potassium ABG Chloride ABG Glucose Oxyhemoglobin Sodium Potassium Chloride Carbon Dioxide BUN Creatinine Glucose POC Glucose 155 H 115 H Lactic Acid Calcium Phosphorus Magnesium Total Bilirubin AST ALT Alkaline Phosphatase Total Protein Albumin Triglycerides Arterial Blood Glucose Arterial Blood Ionized Calcium Crossmatch 01/06/21 01/06/21 01/06/21 04:45 05:56 07:03 WBC RBC 2.95 L Hgb 9.1 L Hct 26.8 L MCV MCHC RDW 16.8 H Plt Count Lymph % (Auto) [place] % (Auto) Lymph # (Auto) [place] # (Auto) Seg Neutrophils % Seg Neuts % (Manual) Lymphocytes % (Manual) Monocytes % (Manual) Seg Neutrophils # Seg Neutrophils # Man Lymphocytes # (Manual) Monocytes # (Manual) PT INR ABG pH POC ABG pCO2 POC ABG pO2 ABG pO2 ABG HCO3 ABG O2 Saturation ABG Base Excess ABG Hemoglobin ABG Oxyhemoglobin ABG Sodium ABG Potassium ABG Chloride ABG Glucose Oxyhemoglobin Sodium 135 L Potassium Chloride 95.9 L Carbon Dioxide BUN 82 H Creatinine 8.7 H Glucose 127 H POC Glucose 136 H Lactic Acid Calcium 8.3 L Phosphorus Magnesium Total Bilirubin AST ALT Alkaline Phosphatase Total Protein Albumin Triglycerides Arterial Blood Glucose Arterial Blood Ionized Calcium Crossmatch 01/06/21 01/06/21 01/06/21 07:10 11:04 13:38 WBC RBC Hgb Hct MCV MCHC RDW Plt Count Lymph % (Auto) [place] % (Auto) Lymph # (Auto) [place] # (Auto) Seg Neutrophils % Seg Neuts % (Manual) Lymphocytes % (Manual) Monocytes % (Manual) Seg Neutrophils # Seg Neutrophils # Man Lymphocytes # (Manual) Monocytes # (Manual) PT INR ABG pH POC ABG pCO2 POC ABG pO2 ABG pO2 ABG HCO3 ABG O2 Saturation ABG Base Excess ABG Hemoglobin ABG Oxyhemoglobin ABG Sodium ABG Potassium ABG Chloride ABG Glucose Oxyhemoglobin Sodium Potassium Chloride Carbon Dioxide BUN Creatinine Glucose POC Glucose 178 H 155 H Lactic Acid Calcium Phosphorus Magnesium Total Bilirubin AST ALT Alkaline Phosphatase Total Protein Albumin Triglycerides Arterial Blood Glucose Arterial Blood Ionized Calcium Crossmatch See Detail 01/06/21 01/06/21 01/07/21 17:35 22:21 03:07 WBC RBC Hgb Hct MCV MCHC RDW Plt Count Lymph % (Auto) [place] % (Auto) Lymph # (Auto) [place] # (Auto) Seg Neutrophils % Seg Neuts % (Manual) Lymphocytes % (Manual) Monocytes % (Manual) Seg Neutrophils # Seg Neutrophils # Man Lymphocytes # (Manual) Monocytes # (Manual) PT INR ABG pH POC ABG pCO2 POC ABG pO2 ABG pO2 ABG HCO3 ABG O2 Saturation ABG Base Excess ABG Hemoglobin 11.9 L ABG Oxyhemoglobin ABG Sodium 135.6 L ABG Potassium ABG Chloride ABG Glucose 181 H Oxyhemoglobin Sodium Potassium Chloride Carbon Dioxide BUN Creatinine Glucose POC Glucose 138 H 202 H Lactic Acid Calcium Phosphorus Magnesium Total Bilirubin AST ALT Alkaline Phosphatase Total Protein Albumin Triglycerides Arterial Blood Glucose 181 H Arterial Blood Ionized Calcium 4.3 L Crossmatch 01/07/21 01/07/21 01/07/21 04:50 05:21 08:37 WBC 12.4 H RBC Hgb 11.1 L Hct 33.3 L D MCV MCHC RDW 17.0 H Plt Count Lymph % (Auto) 3.2 L [place] % (Auto) 9.4 H Lymph # (Auto) 0.4 L [place] # (Auto) 1.2 H Seg Neutrophils % 86.6 H Seg Neuts % (Manual) Lymphocytes % (Manual) Monocytes % (Manual) Seg Neutrophils # 10.7 H Seg Neutrophils # Man Lymphocytes # (Manual) Monocytes # (Manual) PT INR ABG pH POC ABG pCO2 POC ABG pO2 ABG pO2 ABG HCO3 ABG O2 Saturation ABG Base Excess ABG Hemoglobin ABG Oxyhemoglobin ABG Sodium ABG Potassium ABG Chloride ABG Glucose Oxyhemoglobin Sodium Potassium Chloride Carbon Dioxide BUN 60 H Creatinine 6.3 H Glucose 154 H POC Glucose 177 H Lactic Acid Calcium 8.3 L Phosphorus Magnesium Total Bilirubin AST ALT Alkaline Phosphatase Total Protein Albumin Triglycerides Arterial Blood Glucose Arterial Blood Ionized Calcium Crossmatch 01/07/21 01/07/21 01/07/21 11:21 12:19 17:11 WBC RBC Hgb Hct MCV MCHC RDW Plt Count Lymph % (Auto) [place] % (Auto) Lymph # (Auto) [place] # (Auto) Seg Neutrophils % Seg Neuts % (Manual) Lymphocytes % (Manual) Monocytes % (Manual) Seg Neutrophils # Seg Neutrophils # Man Lymphocytes # (Manual) Monocytes # (Manual) PT INR ABG pH POC ABG pCO2 POC ABG pO2 ABG pO2 ABG HCO3 ABG O2 Saturation ABG Base Excess ABG Hemoglobin ABG Oxyhemoglobin ABG Sodium ABG Potassium ABG Chloride ABG Glucose Oxyhemoglobin Sodium Potassium Chloride Carbon Dioxide BUN Creatinine Glucose POC Glucose 144 H 137 H 119 H Lactic Acid Calcium Phosphorus Magnesium Total Bilirubin AST ALT Alkaline Phosphatase Total Protein Albumin Triglycerides Arterial Blood Glucose Arterial Blood Ionized Calcium Crossmatch 01/07/21 01/07/21 01/08/21 17:14 23:39 04:34 WBC RBC Hgb Hct MCV MCHC RDW Plt Count Lymph % (Auto) [place] % (Auto) Lymph # (Auto) [place] # (Auto) Seg Neutrophils % Seg Neuts % (Manual) Lymphocytes % (Manual) Monocytes % (Manual) Seg Neutrophils # Seg Neutrophils # Man Lymphocytes # (Manual) Monocytes # (Manual) PT INR ABG pH 7.345 L POC ABG pCO2 POC ABG pO2 ABG pO2 67.4 L ABG HCO3 ABG O2 Saturation 94.3 L ABG Base Excess -3.9 L ABG Hemoglobin 8.9 L ABG Oxyhemoglobin ABG Sodium ABG Potassium ABG Chloride ABG Glucose Oxyhemoglobin 92.3 L Sodium Potassium Chloride Carbon Dioxide 20 L BUN 93 H Creatinine 8.8 H Glucose 120 H POC Glucose 129 H Lactic Acid Calcium Phosphorus Magnesium Total Bilirubin AST ALT Alkaline Phosphatase 133 H Total Protein 5.4 L Albumin 1.9 L Triglycerides Arterial Blood Glucose Arterial Blood Ionized Calcium Crossmatch 01/08/21 01/08/21 05:26 11:38 WBC RBC Hgb Hct MCV MCHC RDW Plt Count Lymph % (Auto) [place] % (Auto) Lymph # (Auto) [place] # (Auto) Seg Neutrophils % Seg Neuts % (Manual) Lymphocytes % (Manual) Monocytes % (Manual) Seg Neutrophils # Seg Neutrophils # Man Lymphocytes # (Manual) Monocytes # (Manual) PT INR ABG pH POC ABG pCO2 POC ABG pO2 ABG pO2 ABG HCO3 ABG O2 Saturation ABG Base Excess ABG Hemoglobin ABG Oxyhemoglobin ABG Sodium ABG Potassium ABG Chloride ABG Glucose Oxyhemoglobin Sodium Potassium Chloride Carbon Dioxide BUN Creatinine Glucose POC Glucose 125 H 146 H Lactic Acid Calcium Phosphorus Magnesium Total Bilirubin AST ALT Alkaline Phosphatase Total Protein Albumin Triglycerides Arterial Blood Glucose Arterial Blood Ionized Calcium Crossmatch Chest x-ray: pending Allied health notes reviewed: nursing
--- NOTE | 2021-01-09 14:31 | Progress Note ---
Assessment and Plan Acute hypoxemic respiratory failure, on mechanical ventilatory support. Severe Sepsis Peritonitis Acute small-bowel obstruction with tissue necrosis. End-stage renal disease, on dialysis. Hypertension. Crohn's disease. Gastroesophageal reflux disease. Heart failure with reduced ejection fraction. Hyperkalemia. Anemia that is normocytic. Lactic acidosis. Oropharyngeal dysphagia - wean Labetalol for target SBP < 140 mmHg - HD/UF ongoing and BP's a little better (3Kg pulled) - started on Labetalol drip - changed Robinul to 0.2mg IV q8h re: NPO status - continue Solumedrol & benadryl (swelling better) - continue total parenteral nutrition - prn vasopressors for target MAP > 65 mmHg - continue wound care per RN/WCN - continue care as below otherwise; - continue to wean supplemental oxygen for target O2 sat's > 92% acutely - aspiration precautions - continue bronchodilators with pulmonary hygiene per RT - wean per pulmonary driven protocols otherwise - HD/UF per nephrology prescription for toxin and volume control - avoid nephrotoxins, renally dose all medications - continue accuchecks with glycemic control per SSI (While critically ill target blood glucose of 140-180 mg/dL; avoid hypoglycemia) - sedation prn for target RASS 0 to -1 - continue to avoid benzodiazepine's, reduce the possibility of delirium - complete AB's per ID rec's - prn analgesia per CPOT score - Maintenance of sleep-wake cycle, avoid delirium - enteral nutritional support at goal rate as tolerated (once cleared by surgeon) - G.I. & VTE prophylaxis - PT/OT/ROM exercises - continue mobility protocols for pressure ulcer prophylaxis - Monitor hemodynamics closely - continue other care per attending / other consultants - discharge planning ongoing concurrently .... Re-evaluate in am & prn CONDITION: CRITICAL PROGNOSIS: GUARDED CODE STATUS: FULL CODE The high probability of a clinically significant, sudden or life-threatening deterioration of the [respiratory, cardiovascular, GI & neurologic] system(s) required my full and direct attention, intervention and personal management. The aggregate critical care time was [32] minutes without overlap. Time includes spent on; [x] Data Review and interpretation [x] Patient assessment and monitoring of vital signs [x] Documentation [x] Medication orders and management Subjective Date of service: 01/09/21 Principal diagnosis: Ac hypoxemic resp failure; Severe Sepsis; Peritonitis; Acute SBO; ESRD; CHF Interval history: Patient is seen today for: Ac hypoxemic resp failure; Severe Sepsis; Peritonitis; Acute SBO; ESRD on Dialysis; HTN; Crohn's disease; HFrEF Seen and examined at bedside; 24hour events reviewed; nursing and respiratory care staff consulted; no adverse overnight events reported to me; resting in bed; refused BIPAP overnight again but remains on 2L NC; breathing is less labored today; BP's still running high despite scheduled I.V. antihypertensive's; he remains NPO Objective Vital Signs - 12hr 01/09/21 01/09/21 01/09/21 02:30 03:00 03:30 Temperature Pulse Rate 95 H 87 86 Pulse Rate [ From Monitor] Respiratory 17 22 22 Rate Blood Pressure 192/81 212/89 206/89 O2 Sat by Pulse 98 98 98 Oximetry O2 Sat by Pulse Oximetry [ Anterior Bilateral Throughout] 01/09/21 01/09/21 01/09/21 04:00 04:30 05:00 Temperature 98.6 F Pulse Rate 82 86 86 Pulse Rate [ 85 From Monitor] Respiratory 20 18 20 Rate Blood Pressure 206/91 204/96 199/91 O2 Sat by Pulse 98 99 99 Oximetry O2 Sat by Pulse Oximetry [ Anterior Bilateral Throughout] 01/09/21 01/09/21 01/09/21 05:30 06:00 06:30 Temperature Pulse Rate 84 81 Pulse Rate [ From Monitor] Respiratory 19 20 Rate Blood Pressure 199/91 197/106 209/99 O2 Sat by Pulse 99 99 99 Oximetry O2 Sat by Pulse Oximetry [ Anterior Bilateral Throughout] 01/09/21 01/09/21 01/09/21 07:00 07:30 08:00 Temperature 98.6 F Pulse Rate 81 79 88 Pulse Rate [ 85 From Monitor] Respiratory 18 21 21 Rate Blood Pressure 187/100 181/83 155/85 O2 Sat by Pulse 99 100 100 Oximetry O2 Sat by Pulse Oximetry [ Anterior Bilateral Throughout] 01/09/21 01/09/21 01/09/21 08:30 09:00 09:30 Temperature Pulse Rate 88 90 84 Pulse Rate [ From Monitor] Respiratory 18 21 15 Rate Blood Pressure 185/87 188/85 189/83 O2 Sat by Pulse 99 99 99 Oximetry O2 Sat by Pulse Oximetry [ Anterior Bilateral Throughout] 01/09/21 01/09/21 01/09/21 10:00 10:30 11:00 Temperature Pulse Rate 88 84 99 H Pulse Rate [ From Monitor] Respiratory 21 20 18 Rate Blood Pressure 178/83 179/116 195/81 O2 Sat by Pulse 99 99 98 Oximetry O2 Sat by Pulse Oximetry [ Anterior Bilateral Throughout] 01/09/21 01/09/21 01/09/21 11:30 11:38 11:39 Temperature 98.6 F Pulse Rate 101 H 96 H 95 H Pulse Rate [ From Monitor] Respiratory 22 Rate Blood Pressure 170/76 170/79 170/76 O2 Sat by Pulse 99 Oximetry O2 Sat by Pulse 99 Oximetry [ Anterior Bilateral Throughout] 01/09/21 01/09/21 01/09/21 12:00 12:15 12:30 Temperature 98.3 F Pulse Rate 105 H 96 H 96 H Pulse Rate [ From Monitor] Respiratory 19 18 Rate Blood Pressure 163/83 177/82 172/83 O2 Sat by Pulse 99 99 Oximetry O2 Sat by Pulse Oximetry [ Anterior Bilateral Throughout] 01/09/21 01/09/21 01/09/21 12:45 13:00 13:15 Temperature Pulse Rate 97 H 95 H 92 H Pulse Rate [ From Monitor] Respiratory 23 Rate Blood Pressure 170/81 166/78 167/78 O2 Sat by Pulse 99 Oximetry O2 Sat by Pulse Oximetry [ Anterior Bilateral Throughout] 01/09/21 01/09/21 01/09/21 13:30 13:45 14:00 Temperature Pulse Rate 99 H 92 H 98 H Pulse Rate [ From Monitor] Respiratory 23 Rate Blood Pressure 153/72 137/68 138/76 O2 Sat by Pulse 98 Oximetry O2 Sat by Pulse Oximetry [ Anterior Bilateral Throughout] 01/09/21 14:15 Temperature Pulse Rate 92 H Pulse Rate [ From Monitor] Respiratory Rate Blood Pressure 141/70 O2 Sat by Pulse Oximetry O2 Sat by Pulse Oximetry [ Anterior Bilateral Throughout] Constitutional: no acute distress, other (elderly male with milldy increased respiratory effort) Eyes: non-icteric ENT: oropharynx moist, oropharyngeal exudate pre (improved), other (? reccurent macroglossia) Neck: supple, no lymphadenopathy, no JVD Effort: normal Ascultation: Bilateral: diminished breath sounds, rhonchi Percussion: Bilateral: not dull Cardiovascular: regular rate and rhythm Gastrointestinal: hypoactive bowel sounds, soft, non-tender, non-distended (protuberant), other (Midline abdominal incision ) Integumentary: other (Midline abdominal incision ) Extremities: no cyanosis, no edema, pulses normal, no ischemia or petechiae Neurologic: non-focal exam (grossly), pupils equal and round, CN II-XII normal, motor strength normal and (sedated) Psychiatric: mood appropriate, affect normal CBC and BMP: 01/07/21 08:37 01/09/21 05:13 ABG, PT/INR, D-dimer: ABG ABG pH 7.345 pH Units (7.350-7.450) L 01/07/21 17:14 POC ABG pCO2 41.4 mmHg (32.0-48.0) 01/07/21 03:07 ABG pCO2 40.3 mm Hg 01/07/21 17:14 POC ABG pO2 94.5 mmHg (83-108) 01/07/21 03:07 ABG pO2 67.4 mm Hg (80.0-90.0) L 01/07/21 17:14 POC ABG HCO3 22.7 01/07/21 03:07 ABG O2 Saturation 94.3 % (95.0-99.0) L 01/07/21 17:14 PT/INR, D-dimer PT 16.9 Sec. (12.2-14.9) H 01/01/21 12:45 INR 1.39 (0.87-1.13) H 01/01/21 12:45 Abnormal lab findings: Abnormal Labs 12/22/20 12/22/20 12/22/20 14:38 14:38 14:38 WBC RBC Hgb 11.2 L Hct 35.0 L MCV MCHC RDW 16.7 H Plt Count Lymph % (Auto) [place] % (Auto) Lymph # (Auto) [place] # (Auto) Seg Neutrophils % Seg Neuts % (Manual) 94.0 H Lymphocytes % (Manual) 5.0 L Monocytes % (Manual) Seg Neutrophils # Seg Neutrophils # Man Lymphocytes # (Manual) 0.3 L Monocytes # (Manual) PT INR ABG pH POC ABG pCO2 POC ABG pO2 ABG pO2 ABG HCO3 ABG O2 Saturation ABG Base Excess ABG Hemoglobin ABG Oxyhemoglobin ABG Sodium ABG Potassium ABG Chloride ABG Glucose Oxyhemoglobin Sodium Potassium Chloride Carbon Dioxide BUN 58 H Creatinine 13.2 H Glucose 113 H POC Glucose Lactic Acid 3.60 H* Calcium Phosphorus Magnesium Total Bilirubin 1.30 H AST ALT Alkaline Phosphatase 155 H Total Protein Albumin Triglycerides Arterial Blood Glucose Arterial Blood Ionized Calcium Crossmatch 12/22/20 12/22/20 12/23/20 16:26 17:47 05:22 WBC RBC Hgb Hct MCV MCHC RDW Plt Count Lymph % (Auto) [place] % (Auto) Lymph # (Auto) [place] # (Auto) Seg Neutrophils % Seg Neuts % (Manual) Lymphocytes % (Manual) Monocytes % (Manual) Seg Neutrophils # Seg Neutrophils # Man Lymphocytes # (Manual) Monocytes # (Manual) PT INR ABG pH POC ABG pCO2 POC ABG pO2 ABG pO2 ABG HCO3 ABG O2 Saturation ABG Base Excess ABG Hemoglobin ABG Oxyhemoglobin ABG Sodium ABG Potassium ABG Chloride ABG Glucose Oxyhemoglobin Sodium Potassium Chloride Carbon Dioxide BUN Creatinine Glucose POC Glucose Lactic Acid 2.80 H* 3.10 H* 2.30 H* Calcium Phosphorus Magnesium Total Bilirubin AST ALT Alkaline Phosphatase Total Protein Albumin Triglycerides Arterial Blood Glucose Arterial Blood Ionized Calcium Crossmatch 12/23/20 12/23/20 12/23/20 05:22 05:22 06:35 WBC 12.1 H RBC Hgb 11.0 L Hct 33.7 L MCV MCHC RDW 16.9 H Plt Count Lymph % (Auto) [place] % (Auto) Lymph # (Auto) [place] # (Auto) Seg Neutrophils % Seg Neuts % (Manual) 93.0 H Lymphocytes % (Manual) 1.0 L Monocytes % (Manual) Seg Neutrophils # Seg Neutrophils # Man 11.3 H Lymphocytes # (Manual) 0.1 L Monocytes # (Manual) PT INR ABG pH POC ABG pCO2 POC ABG pO2 ABG pO2 ABG HCO3 ABG O2 Saturation ABG Base Excess ABG Hemoglobin ABG Oxyhemoglobin ABG Sodium ABG Potassium ABG Chloride ABG Glucose Oxyhemoglobin Sodium Potassium 5.7 H D Chloride Carbon Dioxide BUN 73 H Creatinine 14.2 H Glucose POC Glucose Lactic Acid 2.30 H* Calcium 7.9 L Phosphorus Magnesium Total Bilirubin 1.40 H AST 119 H ALT 130 H Alkaline Phosphatase 183 H Total Protein 6.1 L Albumin 3.6 L Triglycerides Arterial Blood Glucose Arterial Blood Ionized Calcium Crossmatch 12/23/20 12/23/20 12/23/20 11:40 13:53 16:47 WBC RBC Hgb 10.0 L Hct 30.4 L MCV MCHC RDW Plt Count Lymph % (Auto) [place] % (Auto) Lymph # (Auto) [place] # (Auto) Seg Neutrophils % Seg Neuts % (Manual) Lymphocytes % (Manual) Monocytes % (Manual) Seg Neutrophils # Seg Neutrophils # Man Lymphocytes # (Manual) Monocytes # (Manual) PT INR ABG pH POC ABG pCO2 POC ABG pO2 137.5 H ABG pO2 ABG HCO3 ABG O2 Saturation ABG Base Excess ABG Hemoglobin 9.7 L ABG Oxyhemoglobin ABG Sodium 134.1 L ABG Potassium 6.6 H ABG Chloride ABG Glucose 103 H Oxyhemoglobin Sodium Potassium Chloride Carbon Dioxide BUN Creatinine Glucose POC Glucose Lactic Acid Calcium Phosphorus Magnesium Total Bilirubin AST ALT Alkaline Phosphatase Total Protein Albumin Triglycerides Arterial Blood Glucose 103 H Arterial Blood Ionized Calcium 3.8 L Crossmatch See Detail 12/23/20 12/23/20 12/24/20 20:35 20:40 01:20 WBC RBC Hgb Hct MCV MCHC RDW Plt Count Lymph % (Auto) [place] % (Auto) Lymph # (Auto) [place] # (Auto) Seg Neutrophils % Seg Neuts % (Manual) Lymphocytes % (Manual) Monocytes % (Manual) Seg Neutrophils # Seg Neutrophils # Man Lymphocytes # (Manual) Monocytes # (Manual) PT INR ABG pH 7.252 L POC ABG pCO2 POC ABG pO2 ABG pO2 50.1 L ABG HCO3 ABG O2 Saturation 81.1 L ABG Base Excess -5.9 L ABG Hemoglobin 12.1 L ABG Oxyhemoglobin ABG Sodium ABG Potassium ABG Chloride ABG Glucose Oxyhemoglobin 78.6 L Sodium 134 L Potassium 6.9 H* D 6.3 H* Chloride Carbon Dioxide 18 L 20 L BUN 87 H 91 H Creatinine 15.3 H 15.3 H Glucose 103 H POC Glucose Lactic Acid Calcium 6.9 L 7.5 L Phosphorus Magnesium Total Bilirubin AST ALT Alkaline Phosphatase Total Protein Albumin Triglycerides Arterial Blood Glucose Arterial Blood Ionized Calcium Crossmatch 12/24/20 12/24/20 12/24/20 04:00 10:29 10:29 WBC RBC 3.49 L Hgb 10.5 L Hct 31.2 L MCV MCHC RDW 17.5 H Plt Count 124 L Lymph % (Auto) 3.7 L [place] % (Auto) 9.8 H Lymph # (Auto) 0.2 L [place] # (Auto) Seg Neutrophils % 85.9 H Seg Neuts % (Manual) Lymphocytes % (Manual) Monocytes % (Manual) Seg Neutrophils # Seg Neutrophils # Man Lymphocytes # (Manual) Monocytes # (Manual) PT INR ABG pH POC ABG pCO2 28.1 L POC ABG pO2 ABG pO2 ABG HCO3 ABG O2 Saturation ABG Base Excess ABG Hemoglobin ABG Oxyhemoglobin ABG Sodium 133.9 L ABG Potassium 5.3 H ABG Chloride 108.0 H ABG Glucose Oxyhemoglobin Sodium Potassium 5.6 H Chloride Carbon Dioxide 19 L BUN 99 H Creatinine 16.9 H Glucose 52 L POC Glucose Lactic Acid Calcium 7.6 L Phosphorus Magnesium Total Bilirubin 3.50 H AST 67 H ALT 71 H Alkaline Phosphatase Total Protein 3.5 L D Albumin 2.1 L Triglycerides Arterial Blood Glucose Arterial Blood Ionized Calcium 4.0 L Crossmatch 12/25/20 12/25/20 12/25/20 03:33 04:00 04:00 WBC 3.8 L RBC 2.90 L Hgb 8.6 L Hct 25.7 L MCV MCHC RDW 16.7 H Plt Count 113 L Lymph % (Auto) [place] % (Auto) Lymph # (Auto) [place] # (Auto) Seg Neutrophils % Seg Neuts % (Manual) Lymphocytes % (Manual) Monocytes % (Manual) Seg Neutrophils # Seg Neutrophils # Man Lymphocytes # (Manual) Monocytes # (Manual) PT INR ABG pH 7.544 H POC ABG pCO2 28.2 L POC ABG pO2 62.8 L ABG pO2 ABG HCO3 ABG O2 Saturation ABG Base Excess ABG Hemoglobin 9.3 L ABG Oxyhemoglobin 93.0 L ABG Sodium 130.3 L ABG Potassium ABG Chloride ABG Glucose 97 H Oxyhemoglobin Sodium Potassium Chloride Carbon Dioxide BUN 62 H Creatinine 11.4 H Glucose POC Glucose Lactic Acid Calcium 7.7 L Phosphorus 5.00 H Magnesium Total Bilirubin AST ALT Alkaline Phosphatase Total Protein Albumin Triglycerides Arterial Blood Glucose 97 H Arterial Blood Ionized Calcium 3.9 L Crossmatch 12/26/20 12/26/20 12/27/20 04:46 Unknown 03:40 WBC 4.1 L RBC 2.61 L Hgb 7.8 L Hct 23.4 L MCV MCHC RDW 17.1 H Plt Count 119 L Lymph % (Auto) 5.3 L [place] % (Auto) 10.6 H Lymph # (Auto) 0.2 L [place] # (Auto) Seg Neutrophils % 78.8 H Seg Neuts % (Manual) Lymphocytes % (Manual) Monocytes % (Manual) Seg Neutrophils # Seg Neutrophils # Man Lymphocytes # (Manual) Monocytes # (Manual) PT INR ABG pH 7.333 L 7.332 L POC ABG pCO2 POC ABG pO2 ABG pO2 ABG HCO3 26.9 H ABG O2 Saturation ABG Base Excess -2.4 L ABG Hemoglobin 6.8 L 7.2 L ABG Oxyhemoglobin ABG Sodium ABG Potassium ABG Chloride ABG Glucose Oxyhemoglobin 93.0 L 93.1 L Sodium Potassium Chloride Carbon Dioxide BUN Creatinine Glucose POC Glucose Lactic Acid Calcium Phosphorus Magnesium Total Bilirubin AST ALT Alkaline Phosphatase Total Protein Albumin Triglycerides Arterial Blood Glucose Arterial Blood Ionized Calcium Crossmatch 12/27/20 12/27/20 12/27/20 06:40 06:40 11:22 WBC 4.4 L RBC 2.49 L Hgb 7.4 L Hct 22.4 L MCV MCHC RDW 17.1 H Plt Count 111 L Lymph % (Auto) 6.7 L [place] % (Auto) 12.6 H Lymph # (Auto) 0.3 L [place] # (Auto) Seg Neutrophils % 77.6 H Seg Neuts % (Manual) Lymphocytes % (Manual) Monocytes % (Manual) Seg Neutrophils # Seg Neutrophils # Man Lymphocytes # (Manual) Monocytes # (Manual) PT INR ABG pH POC ABG pCO2 POC ABG pO2 ABG pO2 ABG HCO3 ABG O2 Saturation ABG Base Excess ABG Hemoglobin ABG Oxyhemoglobin ABG Sodium ABG Potassium ABG Chloride ABG Glucose Oxyhemoglobin Sodium Potassium Chloride Carbon Dioxide BUN 64 H Creatinine 9.8 H Glucose 147 H POC Glucose 134 H Lactic Acid Calcium 8.3 L Phosphorus 5.00 H Magnesium Total Bilirubin 3.70 H AST 72 H ALT Alkaline Phosphatase 142 H Total Protein 5.1 L D Albumin 2.9 L Triglycerides Arterial Blood Glucose Arterial Blood Ionized Calcium Crossmatch 12/27/20 12/27/20 12/28/20 17:29 23:31 03:09 WBC RBC Hgb Hct MCV MCHC RDW Plt Count Lymph % (Auto) [place] % (Auto) Lymph # (Auto) [place] # (Auto) Seg Neutrophils % Seg Neuts % (Manual) Lymphocytes % (Manual) Monocytes % (Manual) Seg Neutrophils # Seg Neutrophils # Man Lymphocytes # (Manual) Monocytes # (Manual) PT INR ABG pH 7.474 H POC ABG pCO2 POC ABG pO2 ABG pO2 ABG HCO3 ABG O2 Saturation ABG Base Excess ABG Hemoglobin 7.8 L ABG Oxyhemoglobin ABG Sodium ABG Potassium ABG Chloride ABG Glucose Oxyhemoglobin Sodium Potassium Chloride Carbon Dioxide BUN Creatinine Glucose POC Glucose 121 H 131 H Lactic Acid Calcium Phosphorus Magnesium Total Bilirubin AST ALT Alkaline Phosphatase Total Protein Albumin Triglycerides Arterial Blood Glucose Arterial Blood Ionized Calcium Crossmatch 12/28/20 12/28/20 12/28/20 05:37 05:40 05:40 WBC 4.3 L RBC 2.40 L Hgb 7.2 L Hct 21.5 L MCV MCHC RDW 17.4 H Plt Count 112 L Lymph % (Auto) 6.5 L [place] % (Auto) 16.7 H Lymph # (Auto) 0.3 L [place] # (Auto) Seg Neutrophils % 71.1 H Seg Neuts % (Manual) Lymphocytes % (Manual) Monocytes % (Manual) Seg Neutrophils # Seg Neutrophils # Man Lymphocytes # (Manual) Monocytes # (Manual) PT INR ABG pH POC ABG pCO2 POC ABG pO2 ABG pO2 ABG HCO3 ABG O2 Saturation ABG Base Excess ABG Hemoglobin ABG Oxyhemoglobin ABG Sodium ABG Potassium ABG Chloride ABG Glucose Oxyhemoglobin Sodium Potassium Chloride Carbon Dioxide BUN 85 H Creatinine 11.5 H Glucose 132 H POC Glucose 121 H Lactic Acid Calcium 8.2 L Phosphorus Magnesium 2.40 H Total Bilirubin 3.80 H AST 70 H ALT Alkaline Phosphatase 176 H Total Protein 5.0 L Albumin 2.9 L Triglycerides Arterial Blood Glucose Arterial Blood Ionized Calcium Crossmatch 12/28/20 12/28/20 12/28/20 11:34 15:00 17:35 WBC RBC Hgb Hct MCV MCHC RDW Plt Count Lymph % (Auto) [place] % (Auto) Lymph # (Auto) [place] # (Auto) Seg Neutrophils % Seg Neuts % (Manual) Lymphocytes % (Manual) Monocytes % (Manual) Seg Neutrophils # Seg Neutrophils # Man Lymphocytes # (Manual) Monocytes # (Manual) PT INR ABG pH 7.461 H POC ABG pCO2 POC ABG pO2 72.2 L ABG pO2 ABG HCO3 ABG O2 Saturation ABG Base Excess ABG Hemoglobin 8.2 L ABG Oxyhemoglobin 93.6 L ABG Sodium 134.1 L ABG Potassium 3.2 L ABG Chloride ABG Glucose 135 H Oxyhemoglobin Sodium Potassium Chloride Carbon Dioxide BUN Creatinine Glucose POC Glucose 137 H 144 H Lactic Acid Calcium Phosphorus Magnesium Total Bilirubin AST ALT Alkaline Phosphatase Total Protein Albumin Triglycerides Arterial Blood Glucose 135 H Arterial Blood Ionized Calcium 4.4 L Crossmatch 12/28/20 12/28/20 12/29/20 19:44 Unknown 00:21 WBC RBC Hgb Hct MCV MCHC RDW Plt Count Lymph % (Auto) [place] % (Auto) Lymph # (Auto) [place] # (Auto) Seg Neutrophils % Seg Neuts % (Manual) Lymphocytes % (Manual) Monocytes % (Manual) Seg Neutrophils # Seg Neutrophils # Man Lymphocytes # (Manual) Monocytes # (Manual) PT INR ABG pH 7.474 H POC ABG pCO2 POC ABG pO2 ABG pO2 ABG HCO3 ABG O2 Saturation ABG Base Excess ABG Hemoglobin 7.8 L ABG Oxyhemoglobin ABG Sodium 133.2 L ABG Potassium ABG Chloride ABG Glucose 139 H Oxyhemoglobin Sodium 135 L Potassium Chloride 96.6 L Carbon Dioxide BUN 47 H Creatinine 7.4 H Glucose 130 H POC Glucose 142 H Lactic Acid Calcium 8.3 L Phosphorus Magnesium Total Bilirubin AST ALT Alkaline Phosphatase Total Protein Albumin Triglycerides Arterial Blood Glucose 139 H Arterial Blood Ionized Calcium 4.3 L Crossmatch 12/29/20 12/29/20 12/29/20 05:16 05:16 05:26 WBC RBC 2.53 L Hgb 7.7 L Hct 22.8 L MCV MCHC RDW 17.0 H Plt Count 130 L Lymph % (Auto) [place] % (Auto) Lymph # (Auto) [place] # (Auto) Seg Neutrophils % Seg Neuts % (Manual) 79.0 H Lymphocytes % (Manual) 9.0 L Monocytes % (Manual) Seg Neutrophils # Seg Neutrophils # Man Lymphocytes # (Manual) 0.6 L Monocytes # (Manual) PT INR ABG pH POC ABG pCO2 POC ABG pO2 ABG pO2 ABG HCO3 ABG O2 Saturation ABG Base Excess ABG Hemoglobin ABG Oxyhemoglobin ABG Sodium ABG Potassium ABG Chloride ABG Glucose Oxyhemoglobin Sodium Potassium 3.4 L Chloride 96.6 L Carbon Dioxide BUN 59 H Creatinine 8.3 H Glucose 127 H POC Glucose 141 H Lactic Acid Calcium 8.2 L Phosphorus Magnesium Total Bilirubin 3.00 H AST 88 H ALT Alkaline Phosphatase 188 H Total Protein 5.1 L Albumin 2.8 L Triglycerides Arterial Blood Glucose Arterial Blood Ionized Calcium Crossmatch 12/29/20 12/29/20 12/29/20 11:33 17:29 23:22 WBC RBC Hgb Hct MCV MCHC RDW Plt Count Lymph % (Auto) [place] % (Auto) Lymph # (Auto) [place] # (Auto) Seg Neutrophils % Seg Neuts % (Manual) Lymphocytes % (Manual) Monocytes % (Manual) Seg Neutrophils # Seg Neutrophils # Man Lymphocytes # (Manual) Monocytes # (Manual) PT INR ABG pH POC ABG pCO2 POC ABG pO2 ABG pO2 ABG HCO3 ABG O2 Saturation ABG Base Excess ABG Hemoglobin ABG Oxyhemoglobin ABG Sodium ABG Potassium ABG Chloride ABG Glucose Oxyhemoglobin Sodium Potassium Chloride Carbon Dioxide BUN Creatinine Glucose POC Glucose 144 H 130 H 117 H Lactic Acid Calcium Phosphorus Magnesium Total Bilirubin AST ALT Alkaline Phosphatase Total Protein Albumin Triglycerides Arterial Blood Glucose Arterial Blood Ionized Calcium Crossmatch 12/30/20 12/30/20 12/30/20 05:23 08:15 09:00 WBC RBC Hgb Hct MCV MCHC RDW Plt Count Lymph % (Auto) [place] % (Auto) Lymph # (Auto) [place] # (Auto) Seg Neutrophils % Seg Neuts % (Manual) Lymphocytes % (Manual) Monocytes % (Manual) Seg Neutrophils # Seg Neutrophils # Man Lymphocytes # (Manual) Monocytes # (Manual) PT INR ABG pH POC ABG pCO2 POC ABG pO2 ABG pO2 ABG HCO3 ABG O2 Saturation ABG Base Excess ABG Hemoglobin ABG Oxyhemoglobin ABG Sodium ABG Potassium ABG Chloride ABG Glucose Oxyhemoglobin Sodium 135 L Potassium Chloride 95.9 L Carbon Dioxide BUN 85 H Creatinine 10.6 H Glucose 128 H POC Glucose 135 H 127 H Lactic Acid Calcium 8.3 L Phosphorus Magnesium Total Bilirubin 2.40 H AST 85 H ALT Alkaline Phosphatase 216 H Total Protein 5.3 L Albumin 2.6 L Triglycerides 155 H Arterial Blood Glucose Arterial Blood Ionized Calcium Crossmatch 12/30/20 12/30/20 12/30/20 09:00 11:53 15:49 WBC RBC 2.61 L Hgb 7.8 L Hct 23.7 L MCV MCHC RDW 17.3 H Plt Count Lymph % (Auto) [place] % (Auto) Lymph # (Auto) [place] # (Auto) Seg Neutrophils % Seg Neuts % (Manual) Lymphocytes % (Manual) Monocytes % (Manual) Seg Neutrophils # Seg Neutrophils # Man Lymphocytes # (Manual) Monocytes # (Manual) PT INR ABG pH POC ABG pCO2 POC ABG pO2 ABG pO2 ABG HCO3 ABG O2 Saturation ABG Base Excess ABG Hemoglobin ABG Oxyhemoglobin ABG Sodium ABG Potassium ABG Chloride ABG Glucose Oxyhemoglobin Sodium Potassium Chloride Carbon Dioxide BUN Creatinine Glucose POC Glucose 155 H 146 H Lactic Acid Calcium Phosphorus Magnesium Total Bilirubin AST ALT Alkaline Phosphatase Total Protein Albumin Triglycerides Arterial Blood Glucose Arterial Blood Ionized Calcium Crossmatch 12/30/20 12/30/20 12/31/20 17:53 23:45 03:56 WBC RBC Hgb Hct MCV MCHC RDW Plt Count Lymph % (Auto) [place] % (Auto) Lymph # (Auto) [place] # (Auto) Seg Neutrophils % Seg Neuts % (Manual) Lymphocytes % (Manual) Monocytes % (Manual) Seg Neutrophils # Seg Neutrophils # Man Lymphocytes # (Manual) Monocytes # (Manual) PT INR ABG pH POC ABG pCO2 POC ABG pO2 49.4 L ABG pO2 ABG HCO3 ABG O2 Saturation ABG Base Excess ABG Hemoglobin 10.3 L ABG Oxyhemoglobin 84.2 L ABG Sodium 133.1 L ABG Potassium ABG Chloride ABG Glucose 173 H Oxyhemoglobin Sodium Potassium Chloride Carbon Dioxide BUN Creatinine Glucose POC Glucose 139 H 173 H Lactic Acid Calcium Phosphorus Magnesium Total Bilirubin AST ALT Alkaline Phosphatase Total Protein Albumin Triglycerides Arterial Blood Glucose 173 H Arterial Blood Ionized Calcium Crossmatch 12/31/20 12/31/20 12/31/20 05:07 06:51 06:51 WBC 20.3 H RBC 3.32 L Hgb 9.8 L Hct 30.3 L D MCV MCHC RDW 17.3 H Plt Count Lymph % (Auto) [place] % (Auto) Lymph # (Auto) [place] # (Auto) Seg Neutrophils % Seg Neuts % (Manual) 87.0 H Lymphocytes % (Manual) 10.0 L Monocytes % (Manual) Seg Neutrophils # Seg Neutrophils # Man 17.7 H Lymphocytes # (Manual) Monocytes # (Manual) PT INR ABG pH POC ABG pCO2 POC ABG pO2 ABG pO2 ABG HCO3 ABG O2 Saturation ABG Base Excess ABG Hemoglobin ABG Oxyhemoglobin ABG Sodium ABG Potassium ABG Chloride ABG Glucose Oxyhemoglobin Sodium Potassium 5.2 H D Chloride Carbon Dioxide BUN 62 H Creatinine 8.4 H Glucose 116 H POC Glucose 120 H Lactic Acid Calcium Phosphorus Magnesium 1.60 L Total Bilirubin AST ALT Alkaline Phosphatase Total Protein Albumin Triglycerides Arterial Blood Glucose Arterial Blood Ionized Calcium Crossmatch 12/31/20 12/31/20 12/31/20 09:38 12:19 12:22 WBC RBC Hgb Hct MCV MCHC RDW Plt Count Lymph % (Auto) [place] % (Auto) Lymph # (Auto) [place] # (Auto) Seg Neutrophils % Seg Neuts % (Manual) Lymphocytes % (Manual) Monocytes % (Manual) Seg Neutrophils # Seg Neutrophils # Man Lymphocytes # (Manual) Monocytes # (Manual) PT INR ABG pH POC ABG pCO2 POC ABG pO2 ABG pO2 354.0 H ABG HCO3 ABG O2 Saturation 99.6 H ABG Base Excess ABG Hemoglobin 9.1 L ABG Oxyhemoglobin ABG Sodium ABG Potassium ABG Chloride ABG Glucose Oxyhemoglobin Sodium Potassium 5.2 H Chloride Carbon Dioxide BUN Creatinine Glucose POC Glucose 132 H Lactic Acid Calcium Phosphorus Magnesium Total Bilirubin AST ALT Alkaline Phosphatase Total Protein Albumin Triglycerides Arterial Blood Glucose Arterial Blood Ionized Calcium Crossmatch 12/31/20 01/01/21 01/01/21 23:23 03:03 05:04 WBC RBC Hgb Hct MCV MCHC RDW Plt Count Lymph % (Auto) [place] % (Auto) Lymph # (Auto) [place] # (Auto) Seg Neutrophils % Seg Neuts % (Manual) Lymphocytes % (Manual) Monocytes % (Manual) Seg Neutrophils # Seg Neutrophils # Man Lymphocytes # (Manual) Monocytes # (Manual) PT INR ABG pH POC ABG pCO2 POC ABG pO2 79.6 L ABG pO2 ABG HCO3 ABG O2 Saturation ABG Base Excess ABG Hemoglobin 9.2 L ABG Oxyhemoglobin ABG Sodium 131.6 L ABG Potassium 5.8 H ABG Chloride ABG Glucose 177 H Oxyhemoglobin Sodium Potassium Chloride Carbon Dioxide BUN Creatinine Glucose POC Glucose 174 H 167 H Lactic Acid Calcium Phosphorus Magnesium Total Bilirubin AST ALT Alkaline Phosphatase Total Protein Albumin Triglycerides Arterial Blood Glucose 177 H Arterial Blood Ionized Calcium Crossmatch 01/01/21 01/01/21 01/01/21 07:31 07:31 11:31 WBC 26.1 H RBC 2.95 L Hgb 8.6 L Hct 27.1 L MCV MCHC RDW 18.2 H Plt Count Lymph % (Auto) [place] % (Auto) Lymph # (Auto) [place] # (Auto) Seg Neutrophils % Seg Neuts % (Manual) 96.0 H Lymphocytes % (Manual) 4.0 L Monocytes % (Manual) Seg Neutrophils # Seg Neutrophils # Man 25.1 H Lymphocytes # (Manual) 1.0 L Monocytes # (Manual) PT INR ABG pH POC ABG pCO2 POC ABG pO2 ABG pO2 ABG HCO3 ABG O2 Saturation ABG Base Excess ABG Hemoglobin ABG Oxyhemoglobin ABG Sodium ABG Potassium ABG Chloride ABG Glucose Oxyhemoglobin Sodium Potassium 6.0 H Chloride Carbon Dioxide 21 L BUN 89 H Creatinine 10.5 H Glucose 179 H POC Glucose Lactic Acid Calcium Phosphorus Magnesium Total Bilirubin AST ALT Alkaline Phosphatase Total Protein Albumin Triglycerides Arterial Blood Glucose Arterial Blood Ionized Calcium Crossmatch See Detail 01/01/21 01/01/21 01/01/21 11:51 12:45 16:52 WBC RBC Hgb Hct MCV MCHC RDW Plt Count Lymph % (Auto) [place] % (Auto) Lymph # (Auto) [place] # (Auto) Seg Neutrophils % Seg Neuts % (Manual) Lymphocytes % (Manual) Monocytes % (Manual) Seg Neutrophils # Seg Neutrophils # Man Lymphocytes # (Manual) Monocytes # (Manual) PT 16.9 H INR 1.39 H ABG pH POC ABG pCO2 POC ABG pO2 ABG pO2 ABG HCO3 ABG O2 Saturation ABG Base Excess ABG Hemoglobin ABG Oxyhemoglobin ABG Sodium ABG Potassium ABG Chloride ABG Glucose Oxyhemoglobin Sodium Potassium Chloride Carbon Dioxide BUN Creatinine Glucose POC Glucose 157 H 177 H Lactic Acid Calcium Phosphorus Magnesium Total Bilirubin AST ALT Alkaline Phosphatase Total Protein Albumin Triglycerides Arterial Blood Glucose Arterial Blood Ionized Calcium Crossmatch 01/01/21 01/01/21 01/01/21 17:58 17:58 20:12 WBC 26.9 H RBC 3.14 L Hgb 9.3 L Hct 29.6 L MCV MCHC RDW 17.5 H Plt Count Lymph % (Auto) [place] % (Auto) Lymph # (Auto) [place] # (Auto) Seg Neutrophils % Seg Neuts % (Manual) 84.0 H Lymphocytes % (Manual) 4.0 L Monocytes % (Manual) 12.0 H Seg Neutrophils # Seg Neutrophils # Man 22.6 H Lymphocytes # (Manual) 1.1 L Monocytes # (Manual) 3.2 H PT INR ABG pH POC ABG pCO2 POC ABG pO2 ABG pO2 ABG HCO3 ABG O2 Saturation ABG Base Excess ABG Hemoglobin ABG Oxyhemoglobin ABG Sodium ABG Potassium ABG Chloride ABG Glucose Oxyhemoglobin Sodium 136 L Potassium 6.2 H* Chloride Carbon Dioxide 21 L BUN 92 H Creatinine 10.8 H Glucose 171 H POC Glucose 288 H Lactic Acid Calcium Phosphorus Magnesium Total Bilirubin 2.10 H AST 223 H ALT 100 H Alkaline Phosphatase 206 H Total Protein 4.8 L Albumin 1.9 L Triglycerides Arterial Blood Glucose Arterial Blood Ionized Calcium Crossmatch 01/02/21 01/02/21 01/02/21 00:12 00:45 03:05 WBC RBC Hgb Hct MCV MCHC RDW Plt Count Lymph % (Auto) [place] % (Auto) Lymph # (Auto) [place] # (Auto) Seg Neutrophils % Seg Neuts % (Manual) Lymphocytes % (Manual) Monocytes % (Manual) Seg Neutrophils # Seg Neutrophils # Man Lymphocytes # (Manual) Monocytes # (Manual) PT INR ABG pH POC ABG pCO2 POC ABG pO2 81.8 L ABG pO2 ABG HCO3 ABG O2 Saturation ABG Base Excess ABG Hemoglobin 8.0 L ABG Oxyhemoglobin ABG Sodium 129.8 L ABG Potassium 5.4 H ABG Chloride ABG Glucose 257 H Oxyhemoglobin Sodium 136 L Potassium 5.8 H Chloride 96.6 L Carbon Dioxide BUN 95 H Creatinine 11.2 H Glucose 238 H POC Glucose 223 H Lactic Acid Calcium Phosphorus Magnesium Total Bilirubin AST ALT Alkaline Phosphatase Total Protein Albumin Triglycerides Arterial Blood Glucose 257 H Arterial Blood Ionized Calcium 4.0 L Crossmatch 01/02/21 01/02/21 01/02/21 06:25 08:00 08:00 WBC 17.5 H RBC 2.31 L Hgb 6.7 L Hct 22.1 L D MCV 96 H MCHC 30 L RDW 18.4 H Plt Count Lymph % (Auto) [place] % (Auto) Lymph # (Auto) [place] # (Auto) Seg Neutrophils % Seg Neuts % (Manual) Lymphocytes % (Manual) Monocytes % (Manual) Seg Neutrophils # Seg Neutrophils # Man Lymphocytes # (Manual) Monocytes # (Manual) PT INR ABG pH POC ABG pCO2 POC ABG pO2 ABG pO2 ABG HCO3 ABG O2 Saturation ABG Base Excess ABG Hemoglobin ABG Oxyhemoglobin ABG Sodium ABG Potassium ABG Chloride ABG Glucose Oxyhemoglobin Sodium 134 L Potassium 5.3 H Chloride 92.9 L Carbon Dioxide BUN 101 H Creatinine 10.9 H Glucose 560 H* POC Glucose 239 H Lactic Acid Calcium 7.6 L Phosphorus 6.50 H Magnesium Total Bilirubin AST ALT Alkaline Phosphatase Total Protein Albumin Triglycerides Arterial Blood Glucose Arterial Blood Ionized Calcium Crossmatch 01/02/21 01/02/21 01/02/21 11:26 15:00 17:57 WBC RBC Hgb Hct MCV MCHC RDW Plt Count Lymph % (Auto) [place] % (Auto) Lymph # (Auto) [place] # (Auto) Seg Neutrophils % Seg Neuts % (Manual) Lymphocytes % (Manual) Monocytes % (Manual) Seg Neutrophils # Seg Neutrophils # Man Lymphocytes # (Manual) Monocytes # (Manual) PT INR ABG pH POC ABG pCO2 POC ABG pO2 ABG pO2 ABG HCO3 ABG O2 Saturation ABG Base Excess ABG Hemoglobin ABG Oxyhemoglobin ABG Sodium ABG Potassium ABG Chloride ABG Glucose Oxyhemoglobin Sodium Potassium Chloride Carbon Dioxide BUN Creatinine Glucose 241 H POC Glucose 205 H 272 H Lactic Acid Calcium Phosphorus Magnesium Total Bilirubin AST ALT Alkaline Phosphatase Total Protein Albumin Triglycerides Arterial Blood Glucose Arterial Blood Ionized Calcium Crossmatch 01/02/21 01/02/21 01/03/21 23:25 23:43 03:45 WBC RBC Hgb Hct MCV MCHC RDW Plt Count Lymph % (Auto) [place] % (Auto) Lymph # (Auto) [place] # (Auto) Seg Neutrophils % Seg Neuts % (Manual) Lymphocytes % (Manual) Monocytes % (Manual) Seg Neutrophils # Seg Neutrophils # Man Lymphocytes # (Manual) Monocytes # (Manual) PT INR ABG pH POC ABG pCO2 48.3 H POC ABG pO2 134.4 H 79.7 L ABG pO2 ABG HCO3 ABG O2 Saturation ABG Base Excess ABG Hemoglobin 7.7 L 8.6 L ABG Oxyhemoglobin ABG Sodium 131.8 L 130.4 L ABG Potassium ABG Chloride 97.0 L ABG Glucose 218 H 238 H Oxyhemoglobin Sodium Potassium Chloride Carbon Dioxide BUN Creatinine Glucose POC Glucose 218 H Lactic Acid Calcium Phosphorus Magnesium Total Bilirubin AST ALT Alkaline Phosphatase Total Protein Albumin Triglycerides Arterial Blood Glucose 218 H 238 H Arterial Blood Ionized Calcium 4.1 L 4.0 L Crossmatch 01/03/21 01/03/21 01/03/21 04:37 04:37 05:39 WBC 15.2 H RBC 2.38 L Hgb 7.3 L Hct 21.6 L MCV MCHC RDW 16.6 H Plt Count Lymph % (Auto) [place] % (Auto) Lymph # (Auto) [place] # (Auto) Seg Neutrophils % Seg Neuts % (Manual) Lymphocytes % (Manual) Monocytes % (Manual) Seg Neutrophils # Seg Neutrophils # Man Lymphocytes # (Manual) Monocytes # (Manual) PT INR ABG pH POC ABG pCO2 POC ABG pO2 ABG pO2 ABG HCO3 ABG O2 Saturation ABG Base Excess ABG Hemoglobin ABG Oxyhemoglobin ABG Sodium ABG Potassium ABG Chloride ABG Glucose Oxyhemoglobin Sodium 136 L Potassium Chloride 94.5 L Carbon Dioxide BUN 69 H Creatinine 8.0 H Glucose 219 H POC Glucose 222 H Lactic Acid Calcium 7.8 L Phosphorus 4.80 H D Magnesium Total Bilirubin AST ALT Alkaline Phosphatase Total Protein Albumin Triglycerides Arterial Blood Glucose Arterial Blood Ionized Calcium Crossmatch 01/03/21 01/03/21 01/03/21 11:29 18:49 23:37 WBC RBC Hgb Hct MCV MCHC RDW Plt Count Lymph % (Auto) [place] % (Auto) Lymph # (Auto) [place] # (Auto) Seg Neutrophils % Seg Neuts % (Manual) Lymphocytes % (Manual) Monocytes % (Manual) Seg Neutrophils # Seg Neutrophils # Man Lymphocytes # (Manual) Monocytes # (Manual) PT INR ABG pH POC ABG pCO2 POC ABG pO2 ABG pO2 ABG HCO3 ABG O2 Saturation ABG Base Excess ABG Hemoglobin ABG Oxyhemoglobin ABG Sodium ABG Potassium ABG Chloride ABG Glucose Oxyhemoglobin Sodium Potassium Chloride Carbon Dioxide BUN Creatinine Glucose POC Glucose 232 H 129 H 140 H Lactic Acid Calcium Phosphorus Magnesium Total Bilirubin AST ALT Alkaline Phosphatase Total Protein Albumin Triglycerides Arterial Blood Glucose Arterial Blood Ionized Calcium Crossmatch 01/04/21 01/04/21 01/04/21 03:22 04:38 04:38 WBC 11.1 H RBC 2.89 L Hgb 8.9 L Hct 26.2 L MCV MCHC RDW 16.1 H Plt Count Lymph % (Auto) [place] % (Auto) Lymph # (Auto) [place] # (Auto) Seg Neutrophils % Seg Neuts % (Manual) Lymphocytes % (Manual) Monocytes % (Manual) Seg Neutrophils # Seg Neutrophils # Man Lymphocytes # (Manual) Monocytes # (Manual) PT INR ABG pH POC ABG pCO2 POC ABG pO2 82.3 L ABG pO2 ABG HCO3 ABG O2 Saturation ABG Base Excess ABG Hemoglobin 8.9 L ABG Oxyhemoglobin ABG Sodium 130.5 L ABG Potassium ABG Chloride ABG Glucose 124 H Oxyhemoglobin Sodium Potassium Chloride 95.5 L Carbon Dioxide BUN 87 H Creatinine 9.7 H Glucose 118 H POC Glucose Lactic Acid Calcium 7.7 L Phosphorus Magnesium Total Bilirubin AST ALT Alkaline Phosphatase Total Protein Albumin Triglycerides Arterial Blood Glucose 124 H Arterial Blood Ionized Calcium 3.5 L Crossmatch 01/04/21 01/04/21 01/04/21 05:39 12:04 18:04 WBC RBC Hgb Hct MCV MCHC RDW Plt Count Lymph % (Auto) [place] % (Auto) Lymph # (Auto) [place] # (Auto) Seg Neutrophils % Seg Neuts % (Manual) Lymphocytes % (Manual) Monocytes % (Manual) Seg Neutrophils # Seg Neutrophils # Man Lymphocytes # (Manual) Monocytes # (Manual) PT INR ABG pH POC ABG pCO2 POC ABG pO2 ABG pO2 ABG HCO3 ABG O2 Saturation ABG Base Excess ABG Hemoglobin ABG Oxyhemoglobin ABG Sodium ABG Potassium ABG Chloride ABG Glucose Oxyhemoglobin Sodium Potassium Chloride Carbon Dioxide BUN Creatinine Glucose POC Glucose 134 H 125 H 131 H Lactic Acid Calcium Phosphorus Magnesium Total Bilirubin AST ALT Alkaline Phosphatase Total Protein Albumin Triglycerides Arterial Blood Glucose Arterial Blood Ionized Calcium Crossmatch 01/04/21 01/05/21 01/05/21 23:41 03:23 04:49 WBC RBC Hgb Hct MCV MCHC RDW Plt Count Lymph % (Auto) [place] % (Auto) Lymph # (Auto) [place] # (Auto) Seg Neutrophils % Seg Neuts % (Manual) Lymphocytes % (Manual) Monocytes % (Manual) Seg Neutrophils # Seg Neutrophils # Man Lymphocytes # (Manual) Monocytes # (Manual) PT INR ABG pH POC ABG pCO2 POC ABG pO2 62.8 L ABG pO2 ABG HCO3 ABG O2 Saturation ABG Base Excess ABG Hemoglobin 9.5 L ABG Oxyhemoglobin 92.0 L ABG Sodium 130.1 L ABG Potassium ABG Chloride ABG Glucose 148 H Oxyhemoglobin Sodium Potassium Chloride 96.9 L Carbon Dioxide BUN 57 H Creatinine 6.7 H Glucose 135 H POC Glucose 132 H Lactic Acid Calcium 8.0 L Phosphorus Magnesium Total Bilirubin AST ALT Alkaline Phosphatase Total Protein Albumin Triglycerides Arterial Blood Glucose 148 H Arterial Blood Ionized Calcium 4.1 L Crossmatch 01/05/21 01/05/21 01/05/21 05:04 11:48 12:39 WBC RBC 3.03 L Hgb 9.3 L Hct 27.6 L MCV MCHC RDW 16.5 H Plt Count Lymph % (Auto) [place] % (Auto) Lymph # (Auto) [place] # (Auto) Seg Neutrophils % Seg Neuts % (Manual) Lymphocytes % (Manual) Monocytes % (Manual) Seg Neutrophils # Seg Neutrophils # Man Lymphocytes # (Manual) Monocytes # (Manual) PT INR ABG pH POC ABG pCO2 POC ABG pO2 ABG pO2 ABG HCO3 ABG O2 Saturation ABG Base Excess ABG Hemoglobin ABG Oxyhemoglobin ABG Sodium ABG Potassium ABG Chloride ABG Glucose Oxyhemoglobin Sodium Potassium Chloride Carbon Dioxide BUN Creatinine Glucose POC Glucose 147 H 162 H Lactic Acid Calcium Phosphorus Magnesium Total Bilirubin AST ALT Alkaline Phosphatase Total Protein Albumin Triglycerides Arterial Blood Glucose Arterial Blood Ionized Calcium Crossmatch 01/05/21 01/05/21 01/06/21 17:50 23:32 04:15 WBC RBC Hgb Hct MCV MCHC RDW Plt Count Lymph % (Auto) [place] % (Auto) Lymph # (Auto) [place] # (Auto) Seg Neutrophils % Seg Neuts % (Manual) Lymphocytes % (Manual) Monocytes % (Manual) Seg Neutrophils # Seg Neutrophils # Man Lymphocytes # (Manual) Monocytes # (Manual) PT INR ABG pH POC ABG pCO2 POC ABG pO2 ABG pO2 191.0 H ABG HCO3 ABG O2 Saturation 99.2 H ABG Base Excess ABG Hemoglobin 9.0 L ABG Oxyhemoglobin ABG Sodium ABG Potassium ABG Chloride ABG Glucose Oxyhemoglobin Sodium Potassium Chloride Carbon Dioxide BUN Creatinine Glucose POC Glucose 155 H 115 H Lactic Acid Calcium Phosphorus Magnesium Total Bilirubin AST ALT Alkaline Phosphatase Total Protein Albumin Triglycerides Arterial Blood Glucose Arterial Blood Ionized Calcium Crossmatch 01/06/21 01/06/21 01/06/21 04:45 05:56 07:03 WBC RBC 2.95 L Hgb 9.1 L Hct 26.8 L MCV MCHC RDW 16.8 H Plt Count Lymph % (Auto) [place] % (Auto) Lymph # (Auto) [place] # (Auto) Seg Neutrophils % Seg Neuts % (Manual) Lymphocytes % (Manual) Monocytes % (Manual) Seg Neutrophils # Seg Neutrophils # Man Lymphocytes # (Manual) Monocytes # (Manual) PT INR ABG pH POC ABG pCO2 POC ABG pO2 ABG pO2 ABG HCO3 ABG O2 Saturation ABG Base Excess ABG Hemoglobin ABG Oxyhemoglobin ABG Sodium ABG Potassium ABG Chloride ABG Glucose Oxyhemoglobin Sodium 135 L Potassium Chloride 95.9 L Carbon Dioxide BUN 82 H Creatinine 8.7 H Glucose 127 H POC Glucose 136 H Lactic Acid Calcium 8.3 L Phosphorus Magnesium Total Bilirubin AST ALT Alkaline Phosphatase Total Protein Albumin Triglycerides Arterial Blood Glucose Arterial Blood Ionized Calcium Crossmatch 01/06/21 01/06/21 01/06/21 07:10 11:04 13:38 WBC RBC Hgb Hct MCV MCHC RDW Plt Count Lymph % (Auto) [place] % (Auto) Lymph # (Auto) [place] # (Auto) Seg Neutrophils % Seg Neuts % (Manual) Lymphocytes % (Manual) Monocytes % (Manual) Seg Neutrophils # Seg Neutrophils # Man Lymphocytes # (Manual) Monocytes # (Manual) PT INR ABG pH POC ABG pCO2 POC ABG pO2 ABG pO2 ABG HCO3 ABG O2 Saturation ABG Base Excess ABG Hemoglobin ABG Oxyhemoglobin ABG Sodium ABG Potassium ABG Chloride ABG Glucose Oxyhemoglobin Sodium Potassium Chloride Carbon Dioxide BUN Creatinine Glucose POC Glucose 178 H 155 H Lactic Acid Calcium Phosphorus Magnesium Total Bilirubin AST ALT Alkaline Phosphatase Total Protein Albumin Triglycerides Arterial Blood Glucose Arterial Blood Ionized Calcium Crossmatch See Detail 01/06/21 01/06/21 01/07/21 17:35 22:21 03:07 WBC RBC Hgb Hct MCV MCHC RDW Plt Count Lymph % (Auto) [place] % (Auto) Lymph # (Auto) [place] # (Auto) Seg Neutrophils % Seg Neuts % (Manual) Lymphocytes % (Manual) Monocytes % (Manual) Seg Neutrophils # Seg Neutrophils # Man Lymphocytes # (Manual) Monocytes # (Manual) PT INR ABG pH POC ABG pCO2 POC ABG pO2 ABG pO2 ABG HCO3 ABG O2 Saturation ABG Base Excess ABG Hemoglobin 11.9 L ABG Oxyhemoglobin ABG Sodium 135.6 L ABG Potassium ABG Chloride ABG Glucose 181 H Oxyhemoglobin Sodium Potassium Chloride Carbon Dioxide BUN Creatinine Glucose POC Glucose 138 H 202 H Lactic Acid Calcium Phosphorus Magnesium Total Bilirubin AST ALT Alkaline Phosphatase Total Protein Albumin Triglycerides Arterial Blood Glucose 181 H Arterial Blood Ionized Calcium 4.3 L Crossmatch 01/07/21 01/07/21 01/07/21 04:50 05:21 08:37 WBC 12.4 H RBC Hgb 11.1 L Hct 33.3 L D MCV MCHC RDW 17.0 H Plt Count Lymph % (Auto) 3.2 L [place] % (Auto) 9.4 H Lymph # (Auto) 0.4 L [place] # (Auto) 1.2 H Seg Neutrophils % 86.6 H Seg Neuts % (Manual) Lymphocytes % (Manual) Monocytes % (Manual) Seg Neutrophils # 10.7 H Seg Neutrophils # Man Lymphocytes # (Manual) Monocytes # (Manual) PT INR ABG pH POC ABG pCO2 POC ABG pO2 ABG pO2 ABG HCO3 ABG O2 Saturation ABG Base Excess ABG Hemoglobin ABG Oxyhemoglobin ABG Sodium ABG Potassium ABG Chloride ABG Glucose Oxyhemoglobin Sodium Potassium Chloride Carbon Dioxide BUN 60 H Creatinine 6.3 H Glucose 154 H POC Glucose 177 H Lactic Acid Calcium 8.3 L Phosphorus Magnesium Total Bilirubin AST ALT Alkaline Phosphatase Total Protein Albumin Triglycerides Arterial Blood Glucose Arterial Blood Ionized Calcium Crossmatch 01/07/21 01/07/21 01/07/21 11:21 12:19 17:11 WBC RBC Hgb Hct MCV MCHC RDW Plt Count Lymph % (Auto) [place] % (Auto) Lymph # (Auto) [place] # (Auto) Seg Neutrophils % Seg Neuts % (Manual) Lymphocytes % (Manual) Monocytes % (Manual) Seg Neutrophils # Seg Neutrophils # Man Lymphocytes # (Manual) Monocytes # (Manual) PT INR ABG pH POC ABG pCO2 POC ABG pO2 ABG pO2 ABG HCO3 ABG O2 Saturation ABG Base Excess ABG Hemoglobin ABG Oxyhemoglobin ABG Sodium ABG Potassium ABG Chloride ABG Glucose Oxyhemoglobin Sodium Potassium Chloride Carbon Dioxide BUN Creatinine Glucose POC Glucose 144 H 137 H 119 H Lactic Acid Calcium Phosphorus Magnesium Total Bilirubin AST ALT Alkaline Phosphatase Total Protein Albumin Triglycerides Arterial Blood Glucose Arterial Blood Ionized Calcium Crossmatch 01/07/21 01/07/21 01/08/21 17:14 23:39 04:34 WBC RBC Hgb Hct MCV MCHC RDW Plt Count Lymph % (Auto) [place] % (Auto) Lymph # (Auto) [place] # (Auto) Seg Neutrophils % Seg Neuts % (Manual) Lymphocytes % (Manual) Monocytes % (Manual) Seg Neutrophils # Seg Neutrophils # Man Lymphocytes # (Manual) Monocytes # (Manual) PT INR ABG pH 7.345 L POC ABG pCO2 POC ABG pO2 ABG pO2 67.4 L ABG HCO3 ABG O2 Saturation 94.3 L ABG Base Excess -3.9 L ABG Hemoglobin 8.9 L ABG Oxyhemoglobin ABG Sodium ABG Potassium ABG Chloride ABG Glucose Oxyhemoglobin 92.3 L Sodium Potassium Chloride Carbon Dioxide 20 L BUN 93 H Creatinine 8.8 H Glucose 120 H POC Glucose 129 H Lactic Acid Calcium Phosphorus Magnesium Total Bilirubin AST ALT Alkaline Phosphatase 133 H Total Protein 5.4 L Albumin 1.9 L Triglycerides Arterial Blood Glucose Arterial Blood Ionized Calcium Crossmatch 01/08/21 01/08/21 01/08/21 05:26 11:38 17:19 WBC RBC Hgb Hct MCV MCHC RDW Plt Count Lymph % (Auto) [place] % (Auto) Lymph # (Auto) [place] # (Auto) Seg Neutrophils % Seg Neuts % (Manual) Lymphocytes % (Manual) Monocytes % (Manual) Seg Neutrophils # Seg Neutrophils # Man Lymphocytes # (Manual) Monocytes # (Manual) PT INR ABG pH POC ABG pCO2 POC ABG pO2 ABG pO2 ABG HCO3 ABG O2 Saturation ABG Base Excess ABG Hemoglobin ABG Oxyhemoglobin ABG Sodium ABG Potassium ABG Chloride ABG Glucose Oxyhemoglobin Sodium Potassium Chloride Carbon Dioxide BUN Creatinine Glucose POC Glucose 125 H 146 H 136 H Lactic Acid Calcium Phosphorus Magnesium Total Bilirubin AST ALT Alkaline Phosphatase Total Protein Albumin Triglycerides Arterial Blood Glucose Arterial Blood Ionized Calcium Crossmatch 01/08/21 01/09/21 01/09/21 23:52 05:13 05:21 WBC RBC Hgb Hct MCV MCHC RDW Plt Count Lymph % (Auto) [place] % (Auto) Lymph # (Auto) [place] # (Auto) Seg Neutrophils % Seg Neuts % (Manual) Lymphocytes % (Manual) Monocytes % (Manual) Seg Neutrophils # Seg Neutrophils # Man Lymphocytes # (Manual) Monocytes # (Manual) PT INR ABG pH POC ABG pCO2 POC ABG pO2 ABG pO2 ABG HCO3 ABG O2 Saturation ABG Base Excess ABG Hemoglobin ABG Oxyhemoglobin ABG Sodium ABG Potassium ABG Chloride ABG Glucose Oxyhemoglobin Sodium Potassium Chloride Carbon Dioxide 16 L BUN 123 H Creatinine 10.8 H Glucose 145 H POC Glucose 143 H 144 H Lactic Acid Calcium Phosphorus 5.00 H D Magnesium 2.40 H Total Bilirubin AST ALT Alkaline Phosphatase Total Protein Albumin Triglycerides Arterial Blood Glucose Arterial Blood Ionized Calcium Crossmatch 01/09/21 12:08 WBC RBC Hgb Hct MCV MCHC RDW Plt Count Lymph % (Auto) [place] % (Auto) Lymph # (Auto) [place] # (Auto) Seg Neutrophils % Seg Neuts % (Manual) Lymphocytes % (Manual) Monocytes % (Manual) Seg Neutrophils # Seg Neutrophils # Man Lymphocytes # (Manual) Monocytes # (Manual) PT INR ABG pH POC ABG pCO2 POC ABG pO2 ABG pO2 ABG HCO3 ABG O2 Saturation ABG Base Excess ABG Hemoglobin ABG Oxyhemoglobin ABG Sodium ABG Potassium ABG Chloride ABG Glucose Oxyhemoglobin Sodium Potassium Chloride Carbon Dioxide BUN Creatinine Glucose POC Glucose 153 H Lactic Acid Calcium Phosphorus Magnesium Total Bilirubin AST ALT Alkaline Phosphatase Total Protein Albumin Triglycerides Arterial Blood Glucose Arterial Blood Ionized Calcium Crossmatch Chest x-ray: pending Allied health notes reviewed: nursing
[2021-01-09] MEDS: hydrALAZINE 20 MG/1 ML INJ IV SCH ×3 (15:33→23:30)
[2021-01-09] MEDS: GLYCOPYRROLATE 0.4 MG/2 ML INJ IV SCH ×2 (15:33→22:05)
--- NOTE | 2021-01-09 17:13 | Progress Note ---
Assessment and Plan Cultures: 12/22/2020 blood culture: Streptococcus bovis, Prevotella 12/22/2020 PD fluid culture: No growth 12/24/2020 tracheal aspirate culture: Gwendolyn albicans (likely a colonizer) 12/24/2020 blood culture: No growth 12/31/2020 sputum culture: No growth A/P: 60-year-old male with ESRD on PD, Crohn's disease, CHF, gastroesophageal reflux disease was admitted to the hospital with complaints of abdominal pain and fever: #Severe sepsis with shock: Remarkable improvement, off pressors (on Levophed and vasopressin), leukocytosis improving. Secondary to small bowel obstruction/necrotic bowel with associated peritonitis. Status post exploratory laparotomy on 12/23/2020 with extensive lysis, primary anastomosis, found to have necrotic segment of small bowel. #Small bowel obstruction/necrotic bowel: with concern for PD associated peritonitis: Nephrology and general surgery following. Status post exploratory laparotomy on 12/23/2020 with extensive lysis, primary anastomosis, found to have necrotic segment of small bowel. PD catheter remains in place. S/p ex lap, resection of perforated anastamosis, washout and abthera wound vac placement on 01/01. Repeat CT abdomen shows no new abscesses, noted small free fluid. S/p Exploratory laparotomy, Right hemicolectomy, Peritoneal lavage, Partial ome ntectomy, ABThera wound VAC placement on 01/03/2021. #Streptococcus bovis bacteremia and Prevotella bacteremia: secondary to above. TTE without obvious vegetations. Repeat blood cultures negative. #ESRD: Renally dose antibiotics. Used to be on PD, cath remains in place. Now on HD. #Elevated LFTs: Secondary to sepsis. #Acute respiratory failure: extubated, then re-intubated 12/31/2020. #Anemia: Severe. Recs: -Completed antibiotics -On TPN -Monitor off abx Andre Redding MD [facility] O: [phone] F: [phone] Subjective Date of service: 01/09/21 Principal diagnosis: Ac hypoxemic resp failure; Severe Sepsis; Peritonitis; Acute SBO; ESRD; CHF Interval history: Afebrile, white count 12.4 today. Repeat cultures no growth so far. Objective - Exam Narrative Exam: Narrative Exam: General appearance: Awake, alert Eyes: anicteric sclerae, moist conjunctivae; no lid-lag; PERRLA HENT: Normocephalic, Atraumatic; normal external ears, nares open, oropharynx limited with endotracheal tube, tongue out with edema Neck: supple, tracheal midline, no JVD Lungs: Coarse breath sounds bilaterally CV: Tachycardic Abdomen: Soft, tender. Midline abdominal wound Extremities: no edema, no cyanosis Skin: No rash. Psych: No agitation Neuro: No agitation - Constitutional Vitals: Vital Signs Temp Pulse Resp BP Pulse Ox 99 F 102 H 22 134/63 100 01/09/21 15:30 01/09/21 16:30 01/09/21 16:30 01/09/21 16:30 01/09/21 16:30 Temperature -Last 24 Hours Temperature 99 F Temperature 98.3 F Temperature 98.6 F Temperature 98.6 F Temperature 98.6 F Temperature 98.6 F Temperature 99.0 F Temperature 98.8 F - Labs CBC & Chem 7: 01/07/21 08:37 01/09/21 05:13 Labs: Abnormal lab results 01/08/21 01/08/21 01/09/21 Range/Units 17:19 23:52 05:13 Carbon Dioxide 16 L (22-30) mmol/L BUN 123 H (9-20) mg/dL Creatinine 10.8 H (0.8-1.3) mg/dL Glucose 145 H (75-100) mg/dL POC Glucose 136 H 143 H (70-105) mg/dL Phosphorus 5.00 H D (2.5-4.5) mg/dL Magnesium 2.40 H (1.7-2.3) mg/dL 01/09/21 01/09/21 Range/Units 05:21 12:08 Carbon Dioxide (22-30) mmol/L BUN (9-20) mg/dL Creatinine (0.8-1.3) mg/dL Glucose (75-100) mg/dL POC Glucose 144 H 153 H (70-105) mg/dL Phosphorus (2.5-4.5) mg/dL Magnesium (1.7-2.3) mg/dL
[2021-01-09] MEDS ORDERED: FAT EMULSIONS 20% 250 ML IV SCH (20:00)
[2021-01-09] MEDS ORDERED: TOTAL PARENTERAL NUTRITION 2,016 ML IV SCH (20:00)
[2021-01-10] MEDS: INSULIN LISPRO 100 UNIT/ML SUB-Q SCH ×4 (00:45→17:47)
[2021-01-10] MEDS: ENALAPRILAT 2.5 MG/2 ML INJ IV SCH ×2 (01:20→08:20)
[2021-01-10] MEDS: METOPROLOL TARTRATE 5 MG/5 ML INJ IV SCH ×6 (02:15→22:34)
[2021-01-10] MEDS: methylPREDNISolone Sod Succinate 40 MG/1 ML INJ IV SCH ×3 (03:04→17:42)
[2021-01-10] MEDS: hydrALAZINE 20 MG/1 ML INJ IV SCH ×4 (05:06→22:33)
[2021-01-10 06:16] LABS: Calcium 8.9 mg/dL (8.4-10.2)
[2021-01-10] MEDS: GLYCOPYRROLATE 0.4 MG/2 ML INJ IV SCH ×2 (08:27→22:39)
[2021-01-10] MEDS: diphenhydrAMINE 50 MG/ML VIAL IV SCH ×2 (09:22→22:35)
[2021-01-10] MEDS: FAMOTIDINE 20 MG/2 ML INJ IV SCH ×2 (09:22→22:35)
[2021-01-10] MEDS: HEPARIN 5,000 UNIT/1 ML VIAL SUB-Q SCH ×2 (09:23→22:35)
[2021-01-10] MEDS: INSULIN GLARGINE 100 UNITS/ML SUB-Q SCH (09:24)
--- NOTE | 2021-01-10 09:31 | Progress Note ---
Assessment and Plan Assessment: * ESRD previouaslyon peritoneal dialysis; now on back up HD (on peritoneal dialysis for 2 years with no history of peritonitis) * Small bowel obstruction --s/p ex-lap with jejuno-ileal anastamosis --s/p ex lap with extensive lysis of adhesions and two small bowel resections with primary anastamosis for SBO with necrotic segment small bowel. --s/p ex lap, resection of perforated anastamosis, washout and abthera wound vac placement. --s/p ex lap with right hemicolectomy. * Acute respiratory failure * Septic shock - resolved * Bacteremia - resolved * Hyperkalemia * Anemia of ESRD * Atrial fibrilation, new onset * Post op ileus Plan: * Continue HD MWF via left IJ permcath (12/27) * UF as tolerated * Will require outpatient hd placement once stable * Rate control per cardiology * Abx per primary team/ID * Maintatin MAP >65 * AM labs Subjective Date of service: 01/10/21 Principal diagnosis: Ac hypoxemic resp failure; Severe Sepsis; Peritonitis; Acute SBO; ESRD; CHF Interval history: 24h events reviewed Objective - Vital Signs Vital signs: Vital Signs - 12hr 01/09/21 01/09/21 01/09/21 22:00 22:03 22:30 Temperature Pulse Rate 88 84 92 H Pulse Rate [ From Monitor] Respiratory 19 19 Rate Blood Pressure 166/76 166/76 168/85 O2 Sat by Pulse 100 100 Oximetry 01/09/21 01/09/21 01/09/21 23:00 23:30 23:40 Temperature Pulse Rate 97 H 90 93 H Pulse Rate [ From Monitor] Respiratory 23 20 18 Rate Blood Pressure 171/83 171/86 171/86 O2 Sat by Pulse 98 97 98 Oximetry 01/10/21 01/10/21 01/10/21 00:00 00:30 01:01 Temperature 98.6 F Pulse Rate 90 88 90 Pulse Rate [ 90 From Monitor] Respiratory 19 22 20 Rate Blood Pressure 177/79 179/84 168/86 O2 Sat by Pulse 99 100 99 Oximetry 01/10/21 01/10/21 01/10/21 01:20 01:30 02:00 Temperature Pulse Rate 92 H 85 83 Pulse Rate [ From Monitor] Respiratory 19 17 Rate Blood Pressure 177/79 184/89 185/85 O2 Sat by Pulse 100 99 Oximetry 01/10/21 01/10/21 01/10/21 02:30 03:01 03:30 Temperature Pulse Rate 85 81 81 Pulse Rate [ From Monitor] Respiratory 18 18 14 Rate Blood Pressure 170/91 183/86 174/81 O2 Sat by Pulse 100 99 100 Oximetry 01/10/21 01/10/21 01/10/21 04:00 04:30 05:01 Temperature 98.5 F Pulse Rate 89 80 85 Pulse Rate [ 84 From Monitor] Respiratory 18 14 22 Rate Blood Pressure 180/87 180/81 178/73 O2 Sat by Pulse 100 100 100 Oximetry 01/10/21 01/10/21 01/10/21 05:06 05:30 06:00 Temperature Pulse Rate 82 83 84 Pulse Rate [ From Monitor] Respiratory 19 21 Rate Blood Pressure 178/73 149/75 173/74 O2 Sat by Pulse 100 100 Oximetry 01/10/21 01/10/21 01/10/21 06:30 07:01 08:20 Temperature Pulse Rate 83 86 93 H Pulse Rate [ From Monitor] Respiratory 19 17 Rate Blood Pressure 162/69 158/68 153/70 O2 Sat by Pulse 98 96 Oximetry 01/10/21 09:22 Temperature Pulse Rate 94 H Pulse Rate [ From Monitor] Respiratory Rate Blood Pressure 150/69 O2 Sat by Pulse Oximetry - General Appearance General appearance: well-developed EENT: ATNC Gastrointestinal: hypoactive bowel sounds Integumentary: no rash - Lab 02/14/21 09:24 02/14/21 09:24 Most recent lab results ABG pH 7.345 pH Units (7.350-7.450) L 01/07/21 17:14 ABG pCO2 40.3 mm Hg 01/07/21 17:14 ABG pO2 67.4 mm Hg (80.0-90.0) L 01/07/21 17:14 ABG HCO3 21.5 mmol/L (20.0-26.0) 01/07/21 17:14 ABG O2 Saturation 94.3 % (95.0-99.0) L 01/07/21 17:14 Calcium 8.9 mg/dL (8.4-10.2) 01/10/21 04:52 Phosphorus 4.20 mg/dL (2.5-4.5) 01/10/21 04:52 Magnesium 2.00 mg/dL (1.7-2.3) 01/10/21 04:52 Medications & Allergies - Medications Allergies/Adverse Reactions: Allergies No Known Allergies Allergy (Verified 06/09/20 15:27) Home Medications: Home Medications Medication Instructions Recorded Confirmed Last Taken Type Albuterol Mdi (or & Nicu Only) 2 puff IH QID PRN #1 inhalation 04/01/17 02/05/21 10/31/20 09:00 Rx [ProAir HFA Inhaler] Calcium Acetate 667 mg PO DAILY 04/20/20 02/05/21 10/31/20 09:00 History Centrum Men's Tablet 1 tab PO DAILY 04/20/20 02/05/21 10/31/20 09:00 History Cinacalcet 30 mg PO DAILY 04/20/20 02/05/21 10/31/20 09:00 History Dialyvite with Zinc Tablet 1 tab PO DAILY 04/20/20 02/05/21 10/31/20 09:00 History Magnesium 250 mg PO BID 04/20/20 02/05/21 10/31/20 17:00 History Triamcinolone 0.1% 1 1000units TRANSDERMA DAILY 04/20/20 02/05/21 10/31/20 09:00 History Vit B12/Folic Acid/B6/Aa No.15 1,000 mg PO DAILY 04/20/20 02/05/21 10/31/20 09:00 History amLODIPine 10 mg PO DAILY 06/09/20 02/05/21 10/31/20 09:00 History AtorvaSTATin 40 mg PO HS 11/01/20 02/05/21 10/31/20 21:00 History Benadryl 25 mg PO HS 11/01/20 02/05/21 10/31/20 21:00 History Diclofenac 1 applic TRANSDERMA QID 11/01/20 02/05/21 10/31/20 19:00 History Fluticasone Propionate 1 spray INTRANASAL DAILY 11/01/20 02/05/21 10/31/20 09:00 History Vitamin D3 2,000 units PO QDAY 11/01/20 02/05/21 10/31/20 09:00 History carvediloL 12.5 mg PO DAILY 11/01/20 02/05/21 10/31/20 09:00 History hydrALAZINE 100 mg PO TID 11/01/20 02/05/21 10/31/20 19:00 History Active Medications: Generic Name Dose Route Start Last Admin Trade Name Freq PRN Reason Stop Dose Admin Acetaminophen 650 mg 12/31/20 15:30 12/31/20 15:13 Acetaminophen 650 Mg Rect Supp ME 650 mg Q6H PRN Administration Non Cardiac Pain or Temp>100.5 Clonidine HCl 0.1 mg 01/15/21 11:00 Clonidine Tts 0.1 Mg/24 Hr Patch TD Iqbal THOMAS Digoxin 0.125 mg 01/09/21 12:00 01/09/21 11:39 Digoxin 0.5 Mg/2 Ml Inj IV 0.125 mg Q48H THOMAS Administration Diphenhydramine HCl 25 mg 01/08/21 18:23 01/10/21 09:22 Diphenhydramine 50 Mg/Ml Vial IV 25 mg BID THOMAS Administration Enalaprilat 1.25 mg 01/08/21 17:00 01/10/21 08:20 Enalaprilat 2.5 Mg/2 Ml Inj IV 01/11/21 16:59 1.25 mg Q8H THOMAS Administration Famotidine 10 mg 12/24/20 13:00 01/10/21 09:22 Famotidine 20 Mg/2 Ml Inj IV 10 mg BID THOMAS Administration Glycopyrrolate 0.2 mg 01/09/21 15:00 01/10/21 08:27 Glycopyrrolate 0.4 Mg/2 Ml Inj IV 01/12/21 14:59 0.2 mg Q8H THOMAS Administration Haloperidol Lactate 5 mg 12/29/20 14:16 01/09/21 01:41 Haloperidol Lactate 5 Mg/1 Ml Inj IV 5 mg Q12H PRN Administration Agitation Heparin Sodium (Porcine) 5,000 unit 12/24/20 10:00 01/10/21 09:23 Heparin 5,000 Unit/1 Ml Vial SUB-Q 5,000 unit Q12HR THOMAS Administration Hydralazine HCl 10 mg 01/09/21 12:00 01/10/21 05:06 Hydralazine 20 Mg/1 Ml Inj IV 10 mg Q6HR THOMAS Administration Hydromorphone HCl 0.25 mg 01/09/21 10:53 01/09/21 17:21 Hydromorphone 1 Mg/1 Ml Inj IV 0.25 mg Q6H PRN Administration Pain , Severe (7-10) Hydrophilic Ointment 1 applic 12/31/20 06:39 Lip Therapy Vaseline TP Q2HR PRN Dry Lips Sodium Chloride 100 mls @ 999 mls/hr 12/23/20 11:03 Nacl 0.9% IV [place] PRN Hypotension Sodium Chloride 500 mls @ 0 mls/hr 01/03/21 17:03 Nacl 0.9% 500 Ml IV ONCE THOMAS As Directed Labetalol HCl 200 mg/ Dextrose 200 mls @ 120 mls/hr 01/09/21 12:00 IV TITR THOMAS Protocol 2 MG/MIN Amino Acids/Electrolytes/Dextrose 2,016 mls @ 84 mls/hr 01/09/21 20:00 01/09/21 21:01 Tpn Adult IV 01/10/21 19:59 84 mls/hr DAILY@2000 [facility] Administration Protocol Insulin Glargine 10 units 01/03/21 10:00 01/10/21 09:24 Insulin Glargine 100 Units/Ml SUB-Q 10 units DAILY THOMAS Administration Insulin Human Lispro 0 unit 01/03/21 12:00 01/10/21 07:44 Insulin Lispro 100 Unit/Ml SUB-Q 3 unit Q6HR THOMAS Administration Protocol Methylprednisolone Sodium Succinate 40 mg 01/08/21 18:23 01/10/21 09:23 Methylprednisolone Sod Succinate 40 Mg/1 Ml Inj IV 40 mg Q8H THOMAS Administration Metoprolol Tartrate 5 mg 12/30/20 12:00 01/10/21 09:22 Metoprolol Tartrate 5 Mg/5 Ml Inj IV 5 mg Q4HR THOMAS Administration Multi-Ingred Cream/Lotion/Oil/Oint 1 applic 12/31/20 06:39 Mineral Oil/Petrolatum, White Ophth Oint 3.5 Gm OU Q4HR PRN Dry Eye(s) Scopolamine 1 each 01/15/21 11:00 Scopolamine Transdermal Patch 72 Hr TD Q3D THOMAS Sodium Chloride 10 ml 12/22/20 22:00 01/09/21 22:04 Sodium Chloride 0.9% 10 Ml Flush Syringe IV 10 ml BID THOMAS Administration Sodium Chloride 10 ml 12/22/20 19:42 01/09/21 17:27 Sodium Chloride 0.9% 10 Ml Flush Syringe IV 10 ml PRN PRN Administration LINE FLUSH
--- NOTE | 2021-01-10 09:32 | Progress Note ---
Assessment and Plan POD#17 s/p ex lap with extensive lysis of adhesions and two small bowel resections with primary anastamosis for SBO with necrotic segment small bowel. POD#8 s/p ex lap, resection of perforated anastamosis, washout and abthera wound vac placement. POD#6 s/p ex lap with right hemicolectomy. POd#4 s/p ex lap, with jejunal-colonic anastamosis and closure of abdomen. Afebrile and stable. - post op ileus. Continue TPN - await return of bowel function. Continue NGT decompression. Wound care evaluation for wound vac. Hypertension better controlled. . Subjective Date of service: 01/10/21 Patient Reports: Positive: bowel movement Narrative: No acute events overnight. Pt is very drousy. Denies pain when asked. Objective Vital Signs - 12hr 01/09/21 01/09/21 01/09/21 21:30 22:00 22:03 Temperature Pulse Rate 87 88 84 Pulse Rate [ From Monitor] Respiratory 20 19 Rate Blood Pressure 159/72 166/76 166/76 O2 Sat by Pulse 100 100 Oximetry 01/09/21 01/09/21 01/09/21 22:30 23:00 23:30 Temperature Pulse Rate 92 H 97 H 90 Pulse Rate [ From Monitor] Respiratory 19 23 20 Rate Blood Pressure 168/85 171/83 171/86 O2 Sat by Pulse 100 98 97 Oximetry 01/09/21 01/10/21 01/10/21 23:40 00:00 00:30 Temperature 98.6 F Pulse Rate 93 H 90 88 Pulse Rate [ 90 From Monitor] Respiratory 18 19 22 Rate Blood Pressure 171/86 177/79 179/84 O2 Sat by Pulse 98 99 100 Oximetry 01/10/21 01/10/21 01/10/21 01:01 01:20 01:30 Temperature Pulse Rate 90 92 H 85 Pulse Rate [ From Monitor] Respiratory 20 19 Rate Blood Pressure 168/86 177/79 184/89 O2 Sat by Pulse 99 100 Oximetry 01/10/21 01/10/21 01/10/21 02:00 02:30 03:01 Temperature Pulse Rate 83 85 81 Pulse Rate [ From Monitor] Respiratory 17 18 18 Rate Blood Pressure 185/85 170/91 183/86 O2 Sat by Pulse 99 100 99 Oximetry 01/10/21 01/10/21 01/10/21 03:30 04:00 04:30 Temperature 98.5 F Pulse Rate 81 89 80 Pulse Rate [ 84 From Monitor] Respiratory 14 18 14 Rate Blood Pressure 174/81 180/87 180/81 O2 Sat by Pulse 100 100 100 Oximetry 01/10/21 01/10/21 01/10/21 05:01 05:06 05:30 Temperature Pulse Rate 85 82 83 Pulse Rate [ From Monitor] Respiratory 22 19 Rate Blood Pressure 178/73 178/73 149/75 O2 Sat by Pulse 100 100 Oximetry 01/10/21 01/10/21 01/10/21 06:00 06:30 07:01 Temperature Pulse Rate 84 83 86 Pulse Rate [ From Monitor] Respiratory 21 19 17 Rate Blood Pressure 173/74 162/69 158/68 O2 Sat by Pulse 100 98 96 Oximetry 01/10/21 01/10/21 08:20 09:22 Temperature Pulse Rate 93 H 94 H Pulse Rate [ From Monitor] Respiratory Rate Blood Pressure 153/70 150/69 O2 Sat by Pulse Oximetry - General physical appearance no distress, no pain - Respiratory normal expansion, normal respiratory effort - Abdomen soft, not tender, distended, other (incisional vac in place, HARIS drain sero- sanguinous. >300cc in 24 hours, NGT bilious 1000cc last 24 hours.) - Labs 01/07/21 08:37 01/10/21 04:52 Diabetes panel 01/10/21 Range/Units 04:52 Sodium 135 L (137-145) mmol/L Potassium 3.5 L D (3.6-5.0) mmol/L Chloride 95.0 L (98-107) mmol/L Carbon Dioxide 21 L (22-30) mmol/L BUN 93 H (9-20) mg/dL Creatinine 8.3 H (0.8-1.3) mg/dL Glucose 127 H (75-100) mg/dL Calcium 8.9 (8.4-10.2) mg/dL Calcium panel 01/10/21 Range/Units 04:52 Calcium 8.9 (8.4-10.2) mg/dL Phosphorus 4.20 (2.5-4.5) mg/dL Pituitary panel 01/10/21 Range/Units 04:52 Sodium 135 L (137-145) mmol/L Potassium 3.5 L D (3.6-5.0) mmol/L Chloride 95.0 L (98-107) mmol/L Carbon Dioxide 21 L (22-30) mmol/L BUN 93 H (9-20) mg/dL Creatinine 8.3 H (0.8-1.3) mg/dL Glucose 127 H (75-100) mg/dL Calcium 8.9 (8.4-10.2) mg/dL Adrenal panel 01/10/21 Range/Units 04:52 Sodium 135 L (137-145) mmol/L Potassium 3.5 L D (3.6-5.0) mmol/L Chloride 95.0 L (98-107) mmol/L Carbon Dioxide 21 L (22-30) mmol/L BUN 93 H (9-20) mg/dL Creatinine 8.3 H (0.8-1.3) mg/dL Glucose 127 H (75-100) mg/dL Calcium 8.9 (8.4-10.2) mg/dL
[2021-01-10 10:00] LABS: Hematocrit 28.2 % (35.5-45.6); Hemoglobin 9.7 gm/dl (11.8-15.2); Mean Corpuscular HGB Conc 34 % (32-34); Mean Corpuscular Volume 90 fl (84-94); Platelet Count 354 K/mm3 (140-440); Red Blood Count 3.14 M/mm3 (3.65-5.03); Red Cell Distribution Width 16.5 % (13.2-15.2)
[2021-01-10 11:13] LABS: Band Neutrophils # (Manual) 0.2 K/mm3; Total Cells Counted 100
[2021-01-10 11:14] LABS: Anisocytosis 1+; Platelet Estimate Consistent w Auto; Toxic Granulation 1+
--- NOTE | 2021-01-10 12:31 | Progress Note ---
Assessment and Plan New onset atrial fibrillation currently, he is sinus rhythm on telemetry Hx of nonischemic cardiomyopathy, resolving LVEF 50-55% by echo this presentation Small bowl obstruction status post emergency exploratory laparotomy for anastomotic leak status post exploratory laparotomy s/p ex lap, resection of perforated anastamosis, washout and abthera wound vac placement ESRD on PD Anemia s/p PRBCs Continue intravenous digoxin, and intravenous metoprolol for paroxysmal atrial fibrillation. Patient is not a candidate for anticoagulation at this time due to his postoperative status and the presence of severe anemia. Conservative cardiac management. Subjective Date of service: 01/10/21 Principal diagnosis: Ac hypoxemic resp failure; Severe Sepsis; Peritonitis; Acute SBO; ESRD; CHF Interval history: Patient remains NPO status. Currently, he is sinus rhythm on telemetry. Objective Vital Signs Temp Pulse Pulse Resp BP Pulse Ox Pulse Ox 01/10/21 11:23 84 157/74 01/10/21 10:00 79 22 159/69 96 01/10/21 09:31 90 22 150/69 96 01/10/21 09:22 94 H 150/69 01/10/21 09:00 88 14 150/69 95 01/10/21 08:30 93 H 16 155/72 95 01/10/21 08:20 93 H 153/70 01/10/21 08:00 98.8 F 102 H 94 H 18 161/79 96 01/10/21 07:30 100 H 20 162/77 98 01/10/21 07:01 86 17 158/68 96 01/10/21 06:30 83 19 162/69 98 01/10/21 06:00 84 21 173/74 100 01/10/21 05:30 83 19 149/75 100 01/10/21 05:06 82 178/73 01/10/21 05:01 85 22 178/73 100 01/10/21 04:30 80 14 180/81 100 01/10/21 04:00 98.5 F 89 84 18 180/87 100 01/10/21 03:30 81 14 174/81 100 01/10/21 03:01 81 18 183/86 99 01/10/21 02:30 85 18 170/91 100 01/10/21 02:00 83 17 185/85 99 01/10/21 01:30 85 19 184/89 100 01/10/21 01:20 92 H 177/79 01/10/21 01:01 90 20 168/86 99 01/10/21 00:30 88 22 179/84 100 01/10/21 00:00 98.6 F 90 90 19 177/79 99 01/09/21 23:40 93 H 18 171/86 98 01/09/21 23:30 90 20 171/86 97 01/09/21 23:00 97 H 23 171/83 98 01/09/21 22:30 92 H 19 168/85 100 01/09/21 22:03 84 166/76 01/09/21 22:00 88 19 166/76 100 01/09/21 21:30 87 20 159/72 100 01/09/21 21:00 89 19 154/74 100 01/09/21 20:30 89 20 148/67 100 01/09/21 20:27 100 01/09/21 20:00 98.8 F 85 83 20 155/67 100 01/09/21 19:30 86 22 153/68 100 01/09/21 19:00 89 22 162/67 100 01/09/21 18:30 90 20 153/71 100 01/09/21 18:00 93 H 20 148/66 100 01/09/21 17:34 87 147/68 01/09/21 17:30 92 H 18 147/68 100 01/09/21 17:00 102 H 21 148/76 100 01/09/21 16:30 102 H 22 134/63 100 01/09/21 16:00 98.6 F 107 H 102 H 26 H 135/68 100 01/09/21 15:33 91 H 152/68 01/09/21 15:32 90 152/68 01/09/21 15:30 99 F 92 H 20 152/68 100 98 01/09/21 15:11 92 H 137/72 01/09/21 15:00 95 H 22 138/71 100 01/09/21 14:45 89 145/71 01/09/21 14:30 94 H 21 140/69 99 01/09/21 14:15 92 H 141/70 01/09/21 14:00 96 H 25 H 138/76 99 01/09/21 13:45 92 H 137/68 01/09/21 13:30 99 H 23 153/72 98 01/09/21 13:15 92 H 167/78 01/09/21 13:00 95 H 23 166/78 99 01/09/21 12:45 97 H 170/81 - Physical Examination General: No Apparent Distress HEENT: Positive: PERRL Neck: Positive: neck supple Cardiac: Positive: Reg Rate and Rhythm Abdomen: Positive: Other (POST OP) - Labs and Meds CBC 01/10/21 Range/Units 09:26 WBC 18.2 H (4.5-11.0) K/mm3 RBC 3.14 L (3.65-5.03) M/mm3 Hgb 9.7 L (11.8-15.2) gm/dl Hct 28.2 L (35.5-45.6) % Plt Count 354 (140-440) K/mm3 Comprehensive Metabolic Panel 01/10/21 Range/Units 04:52 Sodium 135 L (137-145) mmol/L Potassium 3.5 L D (3.6-5.0) mmol/L Chloride 95.0 L (98-107) mmol/L Carbon Dioxide 21 L (22-30) mmol/L BUN 93 H (9-20) mg/dL Creatinine 8.3 H (0.8-1.3) mg/dL Glucose 127 H (75-100) mg/dL Calcium 8.9 (8.4-10.2) mg/dL - Allied health notes Allied health notes reviewed: nursing
--- NOTE | 2021-01-10 13:21 | Progress Note ---
Assessment and Plan Acute hypoxemic respiratory failure, on mechanical ventilatory support. Severe Sepsis Peritonitis Acute small-bowel obstruction with tissue necrosis. End-stage renal disease, on dialysis. Hypertension. Crohn's disease. Gastroesophageal reflux disease. Heart failure with reduced ejection fraction. Hyperkalemia. Anemia that is normocytic. Lactic acidosis. Oropharyngeal dysphagia - discontinue Labetalol drip as BP control better - continue Robinul to 0.2mg IV q8h re: NPO status - continue Solumedrol & benadryl (swelling better) - continue total parenteral nutrition - prn vasopressors for target MAP > 65 mmHg - continue wound care per RN/WCN - continue care as below otherwise; - continue to wean supplemental oxygen for target O2 sat's > 92% acutely - aspiration precautions - continue bronchodilators with pulmonary hygiene per RT - wean per pulmonary driven protocols otherwise - HD/UF per nephrology prescription for toxin and volume control - avoid nephrotoxins, renally dose all medications - continue accuchecks with glycemic control per SSI (While critically ill target blood glucose of 140-180 mg/dL; avoid hypoglycemia) - sedation prn for target RASS 0 to -1 - continue to avoid benzodiazepine's, reduce the possibility of delirium - complete AB's per ID rec's - prn analgesia per CPOT score - Maintenance of sleep-wake cycle, avoid delirium - enteral nutritional support at goal rate as tolerated (once cleared by surgeon) - G.I. & VTE prophylaxis - PT/OT/ROM exercises - continue mobility protocols for pressure ulcer prophylaxis - Monitor hemodynamics closely - continue other care per attending / other consultants - discharge planning ongoing concurrently .... Re-evaluate in am & prn ...... transfer to [facility] CONDITION: FAIR PROGNOSIS: GUARDED CODE STATUS: FULL CODE I have spent ( >35 ) minutes with the patient w/ >50% of the time spent counseling and/or coordinating care for this patient. Counseling topics and/or how time was spent coordinating patient's care is outlined in the impression and plan above. Subjective Date of service: 01/10/21 Principal diagnosis: Ac hypoxemic resp failure; Severe Sepsis; Peritonitis; Acute SBO; ESRD; CHF Interval history: Patient is seen today for: Ac hypoxemic resp failure; Severe Sepsis; Peritonitis; Acute SBO; ESRD on Dialysis; HTN; Crohn's disease; HFrEF Seen and examined at bedside; 24hour events reviewed; nursing and respiratory care staff consulted; no adverse overnight events reported to me; resting in bed; doing better; secretions better; still with drainage from HARIS-drain and NGT; NO N/V/F/C Objective Vital Signs - 12hr 01/10/21 01/10/21 01/10/21 01:20 01:30 02:00 Temperature Pulse Rate 92 H 85 83 Pulse Rate [ From Monitor] Respiratory 19 17 Rate Blood Pressure 177/79 184/89 185/85 O2 Sat by Pulse 100 99 Oximetry 01/10/21 01/10/21 01/10/21 02:30 03:01 03:30 Temperature Pulse Rate 85 81 81 Pulse Rate [ From Monitor] Respiratory 18 18 14 Rate Blood Pressure 170/91 183/86 174/81 O2 Sat by Pulse 100 99 100 Oximetry 01/10/21 01/10/21 01/10/21 04:00 04:30 05:01 Temperature 98.5 F Pulse Rate 89 80 85 Pulse Rate [ 84 From Monitor] Respiratory 18 14 22 Rate Blood Pressure 180/87 180/81 178/73 O2 Sat by Pulse 100 100 100 Oximetry 01/10/21 01/10/21 01/10/21 05:06 05:30 06:00 Temperature Pulse Rate 82 83 84 Pulse Rate [ From Monitor] Respiratory 19 21 Rate Blood Pressure 178/73 149/75 173/74 O2 Sat by Pulse 100 100 Oximetry 01/10/21 01/10/21 01/10/21 06:30 07:01 07:30 Temperature Pulse Rate 83 86 100 H Pulse Rate [ From Monitor] Respiratory 19 17 20 Rate Blood Pressure 162/69 158/68 162/77 O2 Sat by Pulse 98 96 98 Oximetry 01/10/21 01/10/21 01/10/21 08:00 08:20 08:30 Temperature 98.8 F Pulse Rate 102 H 93 H 93 H Pulse Rate [ 94 H From Monitor] Respiratory 18 16 Rate Blood Pressure 161/79 153/70 155/72 O2 Sat by Pulse 96 95 Oximetry 01/10/21 01/10/21 01/10/21 09:00 09:22 09:31 Temperature Pulse Rate 88 94 H 90 Pulse Rate [ From Monitor] Respiratory 14 22 Rate Blood Pressure 150/69 150/69 150/69 O2 Sat by Pulse 95 96 Oximetry 01/10/21 01/10/21 01/10/21 10:00 11:23 12:00 Temperature 98.5 F Pulse Rate 79 84 Pulse Rate [ From Monitor] Respiratory 22 Rate Blood Pressure 159/69 157/74 O2 Sat by Pulse 96 Oximetry Constitutional: no acute distress, other (elderly male with milldy increased respiratory effort) Eyes: non-icteric ENT: oropharynx moist, oropharyngeal exudate pre (improved), other (macroglossia improving) Neck: supple, no lymphadenopathy, no JVD Effort: normal Ascultation: Bilateral: diminished breath sounds, rhonchi Percussion: Bilateral: not dull Cardiovascular: regular rate and rhythm Gastrointestinal: hypoactive bowel sounds, soft, non-tender, non-distended (protuberant), other (Midline abdominal incision ) Integumentary: other (Midline abdominal incision ) Extremities: no cyanosis, no edema, pulses normal, no ischemia or petechiae Neurologic: non-focal exam (grossly), pupils equal and round, CN II-XII normal, motor strength normal and (sedated) Psychiatric: mood appropriate, affect normal CBC and BMP: 01/10/21 09:26 01/10/21 04:52 ABG, PT/INR, D-dimer: ABG ABG pH 7.345 pH Units (7.350-7.450) L 01/07/21 17:14 POC ABG pCO2 41.4 mmHg (32.0-48.0) 01/07/21 03:07 ABG pCO2 40.3 mm Hg 01/07/21 17:14 POC ABG pO2 94.5 mmHg (83-108) 01/07/21 03:07 ABG pO2 67.4 mm Hg (80.0-90.0) L 01/07/21 17:14 POC ABG HCO3 22.7 01/07/21 03:07 ABG O2 Saturation 94.3 % (95.0-99.0) L 01/07/21 17:14 PT/INR, D-dimer PT 16.9 Sec. (12.2-14.9) H 01/01/21 12:45 INR 1.39 (0.87-1.13) H 01/01/21 12:45 Abnormal lab findings: Abnormal Labs 12/22/20 12/22/20 12/22/20 14:38 14:38 14:38 WBC RBC Hgb 11.2 L Hct 35.0 L MCV MCHC RDW 16.7 H Plt Count Lymph % (Auto) [place] % (Auto) Lymph # (Auto) [place] # (Auto) Seg Neutrophils % Seg Neuts % (Manual) 94.0 H Lymphocytes % (Manual) 5.0 L Monocytes % (Manual) Seg Neutrophils # Seg Neutrophils # Man Lymphocytes # (Manual) 0.3 L Monocytes # (Manual) PT INR ABG pH POC ABG pCO2 POC ABG pO2 ABG pO2 ABG HCO3 ABG O2 Saturation ABG Base Excess ABG Hemoglobin ABG Oxyhemoglobin ABG Sodium ABG Potassium ABG Chloride ABG Glucose Oxyhemoglobin Sodium Potassium Chloride Carbon Dioxide BUN 58 H Creatinine 13.2 H Glucose 113 H POC Glucose Lactic Acid 3.60 H* Calcium Phosphorus Magnesium Total Bilirubin 1.30 H AST ALT Alkaline Phosphatase 155 H Total Protein Albumin Triglycerides Arterial Blood Glucose Arterial Blood Ionized Calcium Crossmatch 12/22/20 12/22/20 12/23/20 16:26 17:47 05:22 WBC RBC Hgb Hct MCV MCHC RDW Plt Count Lymph % (Auto) [place] % (Auto) Lymph # (Auto) [place] # (Auto) Seg Neutrophils % Seg Neuts % (Manual) Lymphocytes % (Manual) Monocytes % (Manual) Seg Neutrophils # Seg Neutrophils # Man Lymphocytes # (Manual) Monocytes # (Manual) PT INR ABG pH POC ABG pCO2 POC ABG pO2 ABG pO2 ABG HCO3 ABG O2 Saturation ABG Base Excess ABG Hemoglobin ABG Oxyhemoglobin ABG Sodium ABG Potassium ABG Chloride ABG Glucose Oxyhemoglobin Sodium Potassium Chloride Carbon Dioxide BUN Creatinine Glucose POC Glucose Lactic Acid 2.80 H* 3.10 H* 2.30 H* Calcium Phosphorus Magnesium Total Bilirubin AST ALT Alkaline Phosphatase Total Protein Albumin Triglycerides Arterial Blood Glucose Arterial Blood Ionized Calcium Crossmatch 12/23/20 12/23/20 12/23/20 05:22 05:22 06:35 WBC 12.1 H RBC Hgb 11.0 L Hct 33.7 L MCV MCHC RDW 16.9 H Plt Count Lymph % (Auto) [place] % (Auto) Lymph # (Auto) [place] # (Auto) Seg Neutrophils % Seg Neuts % (Manual) 93.0 H Lymphocytes % (Manual) 1.0 L Monocytes % (Manual) Seg Neutrophils # Seg Neutrophils # Man 11.3 H Lymphocytes # (Manual) 0.1 L Monocytes # (Manual) PT INR ABG pH POC ABG pCO2 POC ABG pO2 ABG pO2 ABG HCO3 ABG O2 Saturation ABG Base Excess ABG Hemoglobin ABG Oxyhemoglobin ABG Sodium ABG Potassium ABG Chloride ABG Glucose Oxyhemoglobin Sodium Potassium 5.7 H D Chloride Carbon Dioxide BUN 73 H Creatinine 14.2 H Glucose POC Glucose Lactic Acid 2.30 H* Calcium 7.9 L Phosphorus Magnesium Total Bilirubin 1.40 H AST 119 H ALT 130 H Alkaline Phosphatase 183 H Total Protein 6.1 L Albumin 3.6 L Triglycerides Arterial Blood Glucose Arterial Blood Ionized Calcium Crossmatch 12/23/20 12/23/20 12/23/20 11:40 13:53 16:47 WBC RBC Hgb 10.0 L Hct 30.4 L MCV MCHC RDW Plt Count Lymph % (Auto) [place] % (Auto) Lymph # (Auto) [place] # (Auto) Seg Neutrophils % Seg Neuts % (Manual) Lymphocytes % (Manual) Monocytes % (Manual) Seg Neutrophils # Seg Neutrophils # Man Lymphocytes # (Manual) Monocytes # (Manual) PT INR ABG pH POC ABG pCO2 POC ABG pO2 137.5 H ABG pO2 ABG HCO3 ABG O2 Saturation ABG Base Excess ABG Hemoglobin 9.7 L ABG Oxyhemoglobin ABG Sodium 134.1 L ABG Potassium 6.6 H ABG Chloride ABG Glucose 103 H Oxyhemoglobin Sodium Potassium Chloride Carbon Dioxide BUN Creatinine Glucose POC Glucose Lactic Acid Calcium Phosphorus Magnesium Total Bilirubin AST ALT Alkaline Phosphatase Total Protein Albumin Triglycerides Arterial Blood Glucose 103 H Arterial Blood Ionized Calcium 3.8 L Crossmatch See Detail 12/23/20 12/23/20 12/24/20 20:35 20:40 01:20 WBC RBC Hgb Hct MCV MCHC RDW Plt Count Lymph % (Auto) [place] % (Auto) Lymph # (Auto) [place] # (Auto) Seg Neutrophils % Seg Neuts % (Manual) Lymphocytes % (Manual) Monocytes % (Manual) Seg Neutrophils # Seg Neutrophils # Man Lymphocytes # (Manual) Monocytes # (Manual) PT INR ABG pH 7.252 L POC ABG pCO2 POC ABG pO2 ABG pO2 50.1 L ABG HCO3 ABG O2 Saturation 81.1 L ABG Base Excess -5.9 L ABG Hemoglobin 12.1 L ABG Oxyhemoglobin ABG Sodium ABG Potassium ABG Chloride ABG Glucose Oxyhemoglobin 78.6 L Sodium 134 L Potassium 6.9 H* D 6.3 H* Chloride Carbon Dioxide 18 L 20 L BUN 87 H 91 H Creatinine 15.3 H 15.3 H Glucose 103 H POC Glucose Lactic Acid Calcium 6.9 L 7.5 L Phosphorus Magnesium Total Bilirubin AST ALT Alkaline Phosphatase Total Protein Albumin Triglycerides Arterial Blood Glucose Arterial Blood Ionized Calcium Crossmatch 12/24/20 12/24/20 12/24/20 04:00 10:29 10:29 WBC RBC 3.49 L Hgb 10.5 L Hct 31.2 L MCV MCHC RDW 17.5 H Plt Count 124 L Lymph % (Auto) 3.7 L [place] % (Auto) 9.8 H Lymph # (Auto) 0.2 L [place] # (Auto) Seg Neutrophils % 85.9 H Seg Neuts % (Manual) Lymphocytes % (Manual) Monocytes % (Manual) Seg Neutrophils # Seg Neutrophils # Man Lymphocytes # (Manual) Monocytes # (Manual) PT INR ABG pH POC ABG pCO2 28.1 L POC ABG pO2 ABG pO2 ABG HCO3 ABG O2 Saturation ABG Base Excess ABG Hemoglobin ABG Oxyhemoglobin ABG Sodium 133.9 L ABG Potassium 5.3 H ABG Chloride 108.0 H ABG Glucose Oxyhemoglobin Sodium Potassium 5.6 H Chloride Carbon Dioxide 19 L BUN 99 H Creatinine 16.9 H Glucose 52 L POC Glucose Lactic Acid Calcium 7.6 L Phosphorus Magnesium Total Bilirubin 3.50 H AST 67 H ALT 71 H Alkaline Phosphatase Total Protein 3.5 L D Albumin 2.1 L Triglycerides Arterial Blood Glucose Arterial Blood Ionized Calcium 4.0 L Crossmatch 12/25/20 12/25/20 12/25/20 03:33 04:00 04:00 WBC 3.8 L RBC 2.90 L Hgb 8.6 L Hct 25.7 L MCV MCHC RDW 16.7 H Plt Count 113 L Lymph % (Auto) [place] % (Auto) Lymph # (Auto) [place] # (Auto) Seg Neutrophils % Seg Neuts % (Manual) Lymphocytes % (Manual) Monocytes % (Manual) Seg Neutrophils # Seg Neutrophils # Man Lymphocytes # (Manual) Monocytes # (Manual) PT INR ABG pH 7.544 H POC ABG pCO2 28.2 L POC ABG pO2 62.8 L ABG pO2 ABG HCO3 ABG O2 Saturation ABG Base Excess ABG Hemoglobin 9.3 L ABG Oxyhemoglobin 93.0 L ABG Sodium 130.3 L ABG Potassium ABG Chloride ABG Glucose 97 H Oxyhemoglobin Sodium Potassium Chloride Carbon Dioxide BUN 62 H Creatinine 11.4 H Glucose POC Glucose Lactic Acid Calcium 7.7 L Phosphorus 5.00 H Magnesium Total Bilirubin AST ALT Alkaline Phosphatase Total Protein Albumin Triglycerides Arterial Blood Glucose 97 H Arterial Blood Ionized Calcium 3.9 L Crossmatch 12/26/20 12/26/20 12/27/20 04:46 Unknown 03:40 WBC 4.1 L RBC 2.61 L Hgb 7.8 L Hct 23.4 L MCV MCHC RDW 17.1 H Plt Count 119 L Lymph % (Auto) 5.3 L [place] % (Auto) 10.6 H Lymph # (Auto) 0.2 L [place] # (Auto) Seg Neutrophils % 78.8 H Seg Neuts % (Manual) Lymphocytes % (Manual) Monocytes % (Manual) Seg Neutrophils # Seg Neutrophils # Man Lymphocytes # (Manual) Monocytes # (Manual) PT INR ABG pH 7.333 L 7.332 L POC ABG pCO2 POC ABG pO2 ABG pO2 ABG HCO3 26.9 H ABG O2 Saturation ABG Base Excess -2.4 L ABG Hemoglobin 6.8 L 7.2 L ABG Oxyhemoglobin ABG Sodium ABG Potassium ABG Chloride ABG Glucose Oxyhemoglobin 93.0 L 93.1 L Sodium Potassium Chloride Carbon Dioxide BUN Creatinine Glucose POC Glucose Lactic Acid Calcium Phosphorus Magnesium Total Bilirubin AST ALT Alkaline Phosphatase Total Protein Albumin Triglycerides Arterial Blood Glucose Arterial Blood Ionized Calcium Crossmatch 12/27/20 12/27/20 12/27/20 06:40 06:40 11:22 WBC 4.4 L RBC 2.49 L Hgb 7.4 L Hct 22.4 L MCV MCHC RDW 17.1 H Plt Count 111 L Lymph % (Auto) 6.7 L [place] % (Auto) 12.6 H Lymph # (Auto) 0.3 L [place] # (Auto) Seg Neutrophils % 77.6 H Seg Neuts % (Manual) Lymphocytes % (Manual) Monocytes % (Manual) Seg Neutrophils # Seg Neutrophils # Man Lymphocytes # (Manual) Monocytes # (Manual) PT INR ABG pH POC ABG pCO2 POC ABG pO2 ABG pO2 ABG HCO3 ABG O2 Saturation ABG Base Excess ABG Hemoglobin ABG Oxyhemoglobin ABG Sodium ABG Potassium ABG Chloride ABG Glucose Oxyhemoglobin Sodium Potassium Chloride Carbon Dioxide BUN 64 H Creatinine 9.8 H Glucose 147 H POC Glucose 134 H Lactic Acid Calcium 8.3 L Phosphorus 5.00 H Magnesium Total Bilirubin 3.70 H AST 72 H ALT Alkaline Phosphatase 142 H Total Protein 5.1 L D Albumin 2.9 L Triglycerides Arterial Blood Glucose Arterial Blood Ionized Calcium Crossmatch 12/27/20 12/27/20 12/28/20 17:29 23:31 03:09 WBC RBC Hgb Hct MCV MCHC RDW Plt Count Lymph % (Auto) [place] % (Auto) Lymph # (Auto) [place] # (Auto) Seg Neutrophils % Seg Neuts % (Manual) Lymphocytes % (Manual) Monocytes % (Manual) Seg Neutrophils # Seg Neutrophils # Man Lymphocytes # (Manual) Monocytes # (Manual) PT INR ABG pH 7.474 H POC ABG pCO2 POC ABG pO2 ABG pO2 ABG HCO3 ABG O2 Saturation ABG Base Excess ABG Hemoglobin 7.8 L ABG Oxyhemoglobin ABG Sodium ABG Potassium ABG Chloride ABG Glucose Oxyhemoglobin Sodium Potassium Chloride Carbon Dioxide BUN Creatinine Glucose POC Glucose 121 H 131 H Lactic Acid Calcium Phosphorus Magnesium Total Bilirubin AST ALT Alkaline Phosphatase Total Protein Albumin Triglycerides Arterial Blood Glucose Arterial Blood Ionized Calcium Crossmatch 12/28/20 12/28/20 12/28/20 05:37 05:40 05:40 WBC 4.3 L RBC 2.40 L Hgb 7.2 L Hct 21.5 L MCV MCHC RDW 17.4 H Plt Count 112 L Lymph % (Auto) 6.5 L [place] % (Auto) 16.7 H Lymph # (Auto) 0.3 L [place] # (Auto) Seg Neutrophils % 71.1 H Seg Neuts % (Manual) Lymphocytes % (Manual) Monocytes % (Manual) Seg Neutrophils # Seg Neutrophils # Man Lymphocytes # (Manual) Monocytes # (Manual) PT INR ABG pH POC ABG pCO2 POC ABG pO2 ABG pO2 ABG HCO3 ABG O2 Saturation ABG Base Excess ABG Hemoglobin ABG Oxyhemoglobin ABG Sodium ABG Potassium ABG Chloride ABG Glucose Oxyhemoglobin Sodium Potassium Chloride Carbon Dioxide BUN 85 H Creatinine 11.5 H Glucose 132 H POC Glucose 121 H Lactic Acid Calcium 8.2 L Phosphorus Magnesium 2.40 H Total Bilirubin 3.80 H AST 70 H ALT Alkaline Phosphatase 176 H Total Protein 5.0 L Albumin 2.9 L Triglycerides Arterial Blood Glucose Arterial Blood Ionized Calcium Crossmatch 12/28/20 12/28/20 12/28/20 11:34 15:00 17:35 WBC RBC Hgb Hct MCV MCHC RDW Plt Count Lymph % (Auto) [place] % (Auto) Lymph # (Auto) [place] # (Auto) Seg Neutrophils % Seg Neuts % (Manual) Lymphocytes % (Manual) Monocytes % (Manual) Seg Neutrophils # Seg Neutrophils # Man Lymphocytes # (Manual) Monocytes # (Manual) PT INR ABG pH 7.461 H POC ABG pCO2 POC ABG pO2 72.2 L ABG pO2 ABG HCO3 ABG O2 Saturation ABG Base Excess ABG Hemoglobin 8.2 L ABG Oxyhemoglobin 93.6 L ABG Sodium 134.1 L ABG Potassium 3.2 L ABG Chloride ABG Glucose 135 H Oxyhemoglobin Sodium Potassium Chloride Carbon Dioxide BUN Creatinine Glucose POC Glucose 137 H 144 H Lactic Acid Calcium Phosphorus Magnesium Total Bilirubin AST ALT Alkaline Phosphatase Total Protein Albumin Triglycerides Arterial Blood Glucose 135 H Arterial Blood Ionized Calcium 4.4 L Crossmatch 12/28/20 12/28/20 12/29/20 19:44 Unknown 00:21 WBC RBC Hgb Hct MCV MCHC RDW Plt Count Lymph % (Auto) [place] % (Auto) Lymph # (Auto) [place] # (Auto) Seg Neutrophils % Seg Neuts % (Manual) Lymphocytes % (Manual) Monocytes % (Manual) Seg Neutrophils # Seg Neutrophils # Man Lymphocytes # (Manual) Monocytes # (Manual) PT INR ABG pH 7.474 H POC ABG pCO2 POC ABG pO2 ABG pO2 ABG HCO3 ABG O2 Saturation ABG Base Excess ABG Hemoglobin 7.8 L ABG Oxyhemoglobin ABG Sodium 133.2 L ABG Potassium ABG Chloride ABG Glucose 139 H Oxyhemoglobin Sodium 135 L Potassium Chloride 96.6 L Carbon Dioxide BUN 47 H Creatinine 7.4 H Glucose 130 H POC Glucose 142 H Lactic Acid Calcium 8.3 L Phosphorus Magnesium Total Bilirubin AST ALT Alkaline Phosphatase Total Protein Albumin Triglycerides Arterial Blood Glucose 139 H Arterial Blood Ionized Calcium 4.3 L Crossmatch 12/29/20 12/29/20 12/29/20 05:16 05:16 05:26 WBC RBC 2.53 L Hgb 7.7 L Hct 22.8 L MCV MCHC RDW 17.0 H Plt Count 130 L Lymph % (Auto) [place] % (Auto) Lymph # (Auto) [place] # (Auto) Seg Neutrophils % Seg Neuts % (Manual) 79.0 H Lymphocytes % (Manual) 9.0 L Monocytes % (Manual) Seg Neutrophils # Seg Neutrophils # Man Lymphocytes # (Manual) 0.6 L Monocytes # (Manual) PT INR ABG pH POC ABG pCO2 POC ABG pO2 ABG pO2 ABG HCO3 ABG O2 Saturation ABG Base Excess ABG Hemoglobin ABG Oxyhemoglobin ABG Sodium ABG Potassium ABG Chloride ABG Glucose Oxyhemoglobin Sodium Potassium 3.4 L Chloride 96.6 L Carbon Dioxide BUN 59 H Creatinine 8.3 H Glucose 127 H POC Glucose 141 H Lactic Acid Calcium 8.2 L Phosphorus Magnesium Total Bilirubin 3.00 H AST 88 H ALT Alkaline Phosphatase 188 H Total Protein 5.1 L Albumin 2.8 L Triglycerides Arterial Blood Glucose Arterial Blood Ionized Calcium Crossmatch 12/29/20 12/29/20 12/29/20 11:33 17:29 23:22 WBC RBC Hgb Hct MCV MCHC RDW Plt Count Lymph % (Auto) [place] % (Auto) Lymph # (Auto) [place] # (Auto) Seg Neutrophils % Seg Neuts % (Manual) Lymphocytes % (Manual) Monocytes % (Manual) Seg Neutrophils # Seg Neutrophils # Man Lymphocytes # (Manual) Monocytes # (Manual) PT INR ABG pH POC ABG pCO2 POC ABG pO2 ABG pO2 ABG HCO3 ABG O2 Saturation ABG Base Excess ABG Hemoglobin ABG Oxyhemoglobin ABG Sodium ABG Potassium ABG Chloride ABG Glucose Oxyhemoglobin Sodium Potassium Chloride Carbon Dioxide BUN Creatinine Glucose POC Glucose 144 H 130 H 117 H Lactic Acid Calcium Phosphorus Magnesium Total Bilirubin AST ALT Alkaline Phosphatase Total Protein Albumin Triglycerides Arterial Blood Glucose Arterial Blood Ionized Calcium Crossmatch 12/30/20 12/30/20 12/30/20 05:23 08:15 09:00 WBC RBC Hgb Hct MCV MCHC RDW Plt Count Lymph % (Auto) [place] % (Auto) Lymph # (Auto) [place] # (Auto) Seg Neutrophils % Seg Neuts % (Manual) Lymphocytes % (Manual) Monocytes % (Manual) Seg Neutrophils # Seg Neutrophils # Man Lymphocytes # (Manual) Monocytes # (Manual) PT INR ABG pH POC ABG pCO2 POC ABG pO2 ABG pO2 ABG HCO3 ABG O2 Saturation ABG Base Excess ABG Hemoglobin ABG Oxyhemoglobin ABG Sodium ABG Potassium ABG Chloride ABG Glucose Oxyhemoglobin Sodium 135 L Potassium Chloride 95.9 L Carbon Dioxide BUN 85 H Creatinine 10.6 H Glucose 128 H POC Glucose 135 H 127 H Lactic Acid Calcium 8.3 L Phosphorus Magnesium Total Bilirubin 2.40 H AST 85 H ALT Alkaline Phosphatase 216 H Total Protein 5.3 L Albumin 2.6 L Triglycerides 155 H Arterial Blood Glucose Arterial Blood Ionized Calcium Crossmatch 12/30/20 12/30/20 12/30/20 09:00 11:53 15:49 WBC RBC 2.61 L Hgb 7.8 L Hct 23.7 L MCV MCHC RDW 17.3 H Plt Count Lymph % (Auto) [place] % (Auto) Lymph # (Auto) [place] # (Auto) Seg Neutrophils % Seg Neuts % (Manual) Lymphocytes % (Manual) Monocytes % (Manual) Seg Neutrophils # Seg Neutrophils # Man Lymphocytes # (Manual) Monocytes # (Manual) PT INR ABG pH POC ABG pCO2 POC ABG pO2 ABG pO2 ABG HCO3 ABG O2 Saturation ABG Base Excess ABG Hemoglobin ABG Oxyhemoglobin ABG Sodium ABG Potassium ABG Chloride ABG Glucose Oxyhemoglobin Sodium Potassium Chloride Carbon Dioxide BUN Creatinine Glucose POC Glucose 155 H 146 H Lactic Acid Calcium Phosphorus Magnesium Total Bilirubin AST ALT Alkaline Phosphatase Total Protein Albumin Triglycerides Arterial Blood Glucose Arterial Blood Ionized Calcium Crossmatch 12/30/20 12/30/20 12/31/20 17:53 23:45 03:56 WBC RBC Hgb Hct MCV MCHC RDW Plt Count Lymph % (Auto) [place] % (Auto) Lymph # (Auto) [place] # (Auto) Seg Neutrophils % Seg Neuts % (Manual) Lymphocytes % (Manual) Monocytes % (Manual) Seg Neutrophils # Seg Neutrophils # Man Lymphocytes # (Manual) Monocytes # (Manual) PT INR ABG pH POC ABG pCO2 POC ABG pO2 49.4 L ABG pO2 ABG HCO3 ABG O2 Saturation ABG Base Excess ABG Hemoglobin 10.3 L ABG Oxyhemoglobin 84.2 L ABG Sodium 133.1 L ABG Potassium ABG Chloride ABG Glucose 173 H Oxyhemoglobin Sodium Potassium Chloride Carbon Dioxide BUN Creatinine Glucose POC Glucose 139 H 173 H Lactic Acid Calcium Phosphorus Magnesium Total Bilirubin AST ALT Alkaline Phosphatase Total Protein Albumin Triglycerides Arterial Blood Glucose 173 H Arterial Blood Ionized Calcium Crossmatch 12/31/20 12/31/20 12/31/20 05:07 06:51 06:51 WBC 20.3 H RBC 3.32 L Hgb 9.8 L Hct 30.3 L D MCV MCHC RDW 17.3 H Plt Count Lymph % (Auto) [place] % (Auto) Lymph # (Auto) [place] # (Auto) Seg Neutrophils % Seg Neuts % (Manual) 87.0 H Lymphocytes % (Manual) 10.0 L Monocytes % (Manual) Seg Neutrophils # Seg Neutrophils # Man 17.7 H Lymphocytes # (Manual) Monocytes # (Manual) PT INR ABG pH POC ABG pCO2 POC ABG pO2 ABG pO2 ABG HCO3 ABG O2 Saturation ABG Base Excess ABG Hemoglobin ABG Oxyhemoglobin ABG Sodium ABG Potassium ABG Chloride ABG Glucose Oxyhemoglobin Sodium Potassium 5.2 H D Chloride Carbon Dioxide BUN 62 H Creatinine 8.4 H Glucose 116 H POC Glucose 120 H Lactic Acid Calcium Phosphorus Magnesium 1.60 L Total Bilirubin AST ALT Alkaline Phosphatase Total Protein Albumin Triglycerides Arterial Blood Glucose Arterial Blood Ionized Calcium Crossmatch 12/31/20 12/31/20 12/31/20 09:38 12:19 12:22 WBC RBC Hgb Hct MCV MCHC RDW Plt Count Lymph % (Auto) [place] % (Auto) Lymph # (Auto) [place] # (Auto) Seg Neutrophils % Seg Neuts % (Manual) Lymphocytes % (Manual) Monocytes % (Manual) Seg Neutrophils # Seg Neutrophils # Man Lymphocytes # (Manual) Monocytes # (Manual) PT INR ABG pH POC ABG pCO2 POC ABG pO2 ABG pO2 354.0 H ABG HCO3 ABG O2 Saturation 99.6 H ABG Base Excess ABG Hemoglobin 9.1 L ABG Oxyhemoglobin ABG Sodium ABG Potassium ABG Chloride ABG Glucose Oxyhemoglobin Sodium Potassium 5.2 H Chloride Carbon Dioxide BUN Creatinine Glucose POC Glucose 132 H Lactic Acid Calcium Phosphorus Magnesium Total Bilirubin AST ALT Alkaline Phosphatase Total Protein Albumin Triglycerides Arterial Blood Glucose Arterial Blood Ionized Calcium Crossmatch 12/31/20 01/01/21 01/01/21 23:23 03:03 05:04 WBC RBC Hgb Hct MCV MCHC RDW Plt Count Lymph % (Auto) [place] % (Auto) Lymph # (Auto) [place] # (Auto) Seg Neutrophils % Seg Neuts % (Manual) Lymphocytes % (Manual) Monocytes % (Manual) Seg Neutrophils # Seg Neutrophils # Man Lymphocytes # (Manual) Monocytes # (Manual) PT INR ABG pH POC ABG pCO2 POC ABG pO2 79.6 L ABG pO2 ABG HCO3 ABG O2 Saturation ABG Base Excess ABG Hemoglobin 9.2 L ABG Oxyhemoglobin ABG Sodium 131.6 L ABG Potassium 5.8 H ABG Chloride ABG Glucose 177 H Oxyhemoglobin Sodium Potassium Chloride Carbon Dioxide BUN Creatinine Glucose POC Glucose 174 H 167 H Lactic Acid Calcium Phosphorus Magnesium Total Bilirubin AST ALT Alkaline Phosphatase Total Protein Albumin Triglycerides Arterial Blood Glucose 177 H Arterial Blood Ionized Calcium Crossmatch 01/01/21 01/01/21 01/01/21 07:31 07:31 11:31 WBC 26.1 H RBC 2.95 L Hgb 8.6 L Hct 27.1 L MCV MCHC RDW 18.2 H Plt Count Lymph % (Auto) [place] % (Auto) Lymph # (Auto) [place] # (Auto) Seg Neutrophils % Seg Neuts % (Manual) 96.0 H Lymphocytes % (Manual) 4.0 L Monocytes % (Manual) Seg Neutrophils # Seg Neutrophils # Man 25.1 H Lymphocytes # (Manual) 1.0 L Monocytes # (Manual) PT INR ABG pH POC ABG pCO2 POC ABG pO2 ABG pO2 ABG HCO3 ABG O2 Saturation ABG Base Excess ABG Hemoglobin ABG Oxyhemoglobin ABG Sodium ABG Potassium ABG Chloride ABG Glucose Oxyhemoglobin Sodium Potassium 6.0 H Chloride Carbon Dioxide 21 L BUN 89 H Creatinine 10.5 H Glucose 179 H POC Glucose Lactic Acid Calcium Phosphorus Magnesium Total Bilirubin AST ALT Alkaline Phosphatase Total Protein Albumin Triglycerides Arterial Blood Glucose Arterial Blood Ionized Calcium Crossmatch See Detail 01/01/21 01/01/21 01/01/21 11:51 12:45 16:52 WBC RBC Hgb Hct MCV MCHC RDW Plt Count Lymph % (Auto) [place] % (Auto) Lymph # (Auto) [place] # (Auto) Seg Neutrophils % Seg Neuts % (Manual) Lymphocytes % (Manual) Monocytes % (Manual) Seg Neutrophils # Seg Neutrophils # Man Lymphocytes # (Manual) Monocytes # (Manual) PT 16.9 H INR 1.39 H ABG pH POC ABG pCO2 POC ABG pO2 ABG pO2 ABG HCO3 ABG O2 Saturation ABG Base Excess ABG Hemoglobin ABG Oxyhemoglobin ABG Sodium ABG Potassium ABG Chloride ABG Glucose Oxyhemoglobin Sodium Potassium Chloride Carbon Dioxide BUN Creatinine Glucose POC Glucose 157 H 177 H Lactic Acid Calcium Phosphorus Magnesium Total Bilirubin AST ALT Alkaline Phosphatase Total Protein Albumin Triglycerides Arterial Blood Glucose Arterial Blood Ionized Calcium Crossmatch 01/01/21 01/01/21 01/01/21 17:58 17:58 20:12 WBC 26.9 H RBC 3.14 L Hgb 9.3 L Hct 29.6 L MCV MCHC RDW 17.5 H Plt Count Lymph % (Auto) [place] % (Auto) Lymph # (Auto) [place] # (Auto) Seg Neutrophils % Seg Neuts % (Manual) 84.0 H Lymphocytes % (Manual) 4.0 L Monocytes % (Manual) 12.0 H Seg Neutrophils # Seg Neutrophils # Man 22.6 H Lymphocytes # (Manual) 1.1 L Monocytes # (Manual) 3.2 H PT INR ABG pH POC ABG pCO2 POC ABG pO2 ABG pO2 ABG HCO3 ABG O2 Saturation ABG Base Excess ABG Hemoglobin ABG Oxyhemoglobin ABG Sodium ABG Potassium ABG Chloride ABG Glucose Oxyhemoglobin Sodium 136 L Potassium 6.2 H* Chloride Carbon Dioxide 21 L BUN 92 H Creatinine 10.8 H Glucose 171 H POC Glucose 288 H Lactic Acid Calcium Phosphorus Magnesium Total Bilirubin 2.10 H AST 223 H ALT 100 H Alkaline Phosphatase 206 H Total Protein 4.8 L Albumin 1.9 L Triglycerides Arterial Blood Glucose Arterial Blood Ionized Calcium Crossmatch 01/02/21 01/02/21 01/02/21 00:12 00:45 03:05 WBC RBC Hgb Hct MCV MCHC RDW Plt Count Lymph % (Auto) [place] % (Auto) Lymph # (Auto) [place] # (Auto) Seg Neutrophils % Seg Neuts % (Manual) Lymphocytes % (Manual) Monocytes % (Manual) Seg Neutrophils # Seg Neutrophils # Man Lymphocytes # (Manual) Monocytes # (Manual) PT INR ABG pH POC ABG pCO2 POC ABG pO2 81.8 L ABG pO2 ABG HCO3 ABG O2 Saturation ABG Base Excess ABG Hemoglobin 8.0 L ABG Oxyhemoglobin ABG Sodium 129.8 L ABG Potassium 5.4 H ABG Chloride ABG Glucose 257 H Oxyhemoglobin Sodium 136 L Potassium 5.8 H Chloride 96.6 L Carbon Dioxide BUN 95 H Creatinine 11.2 H Glucose 238 H POC Glucose 223 H Lactic Acid Calcium Phosphorus Magnesium Total Bilirubin AST ALT Alkaline Phosphatase Total Protein Albumin Triglycerides Arterial Blood Glucose 257 H Arterial Blood Ionized Calcium 4.0 L Crossmatch 01/02/21 01/02/21 01/02/21 06:25 08:00 08:00 WBC 17.5 H RBC 2.31 L Hgb 6.7 L Hct 22.1 L D MCV 96 H MCHC 30 L RDW 18.4 H Plt Count Lymph % (Auto) [place] % (Auto) Lymph # (Auto) [place] # (Auto) Seg Neutrophils % Seg Neuts % (Manual) Lymphocytes % (Manual) Monocytes % (Manual) Seg Neutrophils # Seg Neutrophils # Man Lymphocytes # (Manual) Monocytes # (Manual) PT INR ABG pH POC ABG pCO2 POC ABG pO2 ABG pO2 ABG HCO3 ABG O2 Saturation ABG Base Excess ABG Hemoglobin ABG Oxyhemoglobin ABG Sodium ABG Potassium ABG Chloride ABG Glucose Oxyhemoglobin Sodium 134 L Potassium 5.3 H Chloride 92.9 L Carbon Dioxide BUN 101 H Creatinine 10.9 H Glucose 560 H* POC Glucose 239 H Lactic Acid Calcium 7.6 L Phosphorus 6.50 H Magnesium Total Bilirubin AST ALT Alkaline Phosphatase Total Protein Albumin Triglycerides Arterial Blood Glucose Arterial Blood Ionized Calcium Crossmatch 01/02/21 01/02/21 01/02/21 11:26 15:00 17:57 WBC RBC Hgb Hct MCV MCHC RDW Plt Count Lymph % (Auto) [place] % (Auto) Lymph # (Auto) [place] # (Auto) Seg Neutrophils % Seg Neuts % (Manual) Lymphocytes % (Manual) Monocytes % (Manual) Seg Neutrophils # Seg Neutrophils # Man Lymphocytes # (Manual) Monocytes # (Manual) PT INR ABG pH POC ABG pCO2 POC ABG pO2 ABG pO2 ABG HCO3 ABG O2 Saturation ABG Base Excess ABG Hemoglobin ABG Oxyhemoglobin ABG Sodium ABG Potassium ABG Chloride ABG Glucose Oxyhemoglobin Sodium Potassium Chloride Carbon Dioxide BUN Creatinine Glucose 241 H POC Glucose 205 H 272 H Lactic Acid Calcium Phosphorus Magnesium Total Bilirubin AST ALT Alkaline Phosphatase Total Protein Albumin Triglycerides Arterial Blood Glucose Arterial Blood Ionized Calcium Crossmatch 01/02/21 01/02/21 01/03/21 23:25 23:43 03:45 WBC RBC Hgb Hct MCV MCHC RDW Plt Count Lymph % (Auto) [place] % (Auto) Lymph # (Auto) [place] # (Auto) Seg Neutrophils % Seg Neuts % (Manual) Lymphocytes % (Manual) Monocytes % (Manual) Seg Neutrophils # Seg Neutrophils # Man Lymphocytes # (Manual) Monocytes # (Manual) PT INR ABG pH POC ABG pCO2 48.3 H POC ABG pO2 134.4 H 79.7 L ABG pO2 ABG HCO3 ABG O2 Saturation ABG Base Excess ABG Hemoglobin 7.7 L 8.6 L ABG Oxyhemoglobin ABG Sodium 131.8 L 130.4 L ABG Potassium ABG Chloride 97.0 L ABG Glucose 218 H 238 H Oxyhemoglobin Sodium Potassium Chloride Carbon Dioxide BUN Creatinine Glucose POC Glucose 218 H Lactic Acid Calcium Phosphorus Magnesium Total Bilirubin AST ALT Alkaline Phosphatase Total Protein Albumin Triglycerides Arterial Blood Glucose 218 H 238 H Arterial Blood Ionized Calcium 4.1 L 4.0 L Crossmatch 01/03/21 01/03/21 01/03/21 04:37 04:37 05:39 WBC 15.2 H RBC 2.38 L Hgb 7.3 L Hct 21.6 L MCV MCHC RDW 16.6 H Plt Count Lymph % (Auto) [place] % (Auto) Lymph # (Auto) [place] # (Auto) Seg Neutrophils % Seg Neuts % (Manual) Lymphocytes % (Manual) Monocytes % (Manual) Seg Neutrophils # Seg Neutrophils # Man Lymphocytes # (Manual) Monocytes # (Manual) PT INR ABG pH POC ABG pCO2 POC ABG pO2 ABG pO2 ABG HCO3 ABG O2 Saturation ABG Base Excess ABG Hemoglobin ABG Oxyhemoglobin ABG Sodium ABG Potassium ABG Chloride ABG Glucose Oxyhemoglobin Sodium 136 L Potassium Chloride 94.5 L Carbon Dioxide BUN 69 H Creatinine 8.0 H Glucose 219 H POC Glucose 222 H Lactic Acid Calcium 7.8 L Phosphorus 4.80 H D Magnesium Total Bilirubin AST ALT Alkaline Phosphatase Total Protein Albumin Triglycerides Arterial Blood Glucose Arterial Blood Ionized Calcium Crossmatch 01/03/21 01/03/21 01/03/21 11:29 18:49 23:37 WBC RBC Hgb Hct MCV MCHC RDW Plt Count Lymph % (Auto) [place] % (Auto) Lymph # (Auto) [place] # (Auto) Seg Neutrophils % Seg Neuts % (Manual) Lymphocytes % (Manual) Monocytes % (Manual) Seg Neutrophils # Seg Neutrophils # Man Lymphocytes # (Manual) Monocytes # (Manual) PT INR ABG pH POC ABG pCO2 POC ABG pO2 ABG pO2 ABG HCO3 ABG O2 Saturation ABG Base Excess ABG Hemoglobin ABG Oxyhemoglobin ABG Sodium ABG Potassium ABG Chloride ABG Glucose Oxyhemoglobin Sodium Potassium Chloride Carbon Dioxide BUN Creatinine Glucose POC Glucose 232 H 129 H 140 H Lactic Acid Calcium Phosphorus Magnesium Total Bilirubin AST ALT Alkaline Phosphatase Total Protein Albumin Triglycerides Arterial Blood Glucose Arterial Blood Ionized Calcium Crossmatch 01/04/21 01/04/21 01/04/21 03:22 04:38 04:38 WBC 11.1 H RBC 2.89 L Hgb 8.9 L Hct 26.2 L MCV MCHC RDW 16.1 H Plt Count Lymph % (Auto) [place] % (Auto) Lymph # (Auto) [place] # (Auto) Seg Neutrophils % Seg Neuts % (Manual) Lymphocytes % (Manual) Monocytes % (Manual) Seg Neutrophils # Seg Neutrophils # Man Lymphocytes # (Manual) Monocytes # (Manual) PT INR ABG pH POC ABG pCO2 POC ABG pO2 82.3 L ABG pO2 ABG HCO3 ABG O2 Saturation ABG Base Excess ABG Hemoglobin 8.9 L ABG Oxyhemoglobin ABG Sodium 130.5 L ABG Potassium ABG Chloride ABG Glucose 124 H Oxyhemoglobin Sodium Potassium Chloride 95.5 L Carbon Dioxide BUN 87 H Creatinine 9.7 H Glucose 118 H POC Glucose Lactic Acid Calcium 7.7 L Phosphorus Magnesium Total Bilirubin AST ALT Alkaline Phosphatase Total Protein Albumin Triglycerides Arterial Blood Glucose 124 H Arterial Blood Ionized Calcium 3.5 L Crossmatch 01/04/21 01/04/21 01/04/21 05:39 12:04 18:04 WBC RBC Hgb Hct MCV MCHC RDW Plt Count Lymph % (Auto) [place] % (Auto) Lymph # (Auto) [place] # (Auto) Seg Neutrophils % Seg Neuts % (Manual) Lymphocytes % (Manual) Monocytes % (Manual) Seg Neutrophils # Seg Neutrophils # Man Lymphocytes # (Manual) Monocytes # (Manual) PT INR ABG pH POC ABG pCO2 POC ABG pO2 ABG pO2 ABG HCO3 ABG O2 Saturation ABG Base Excess ABG Hemoglobin ABG Oxyhemoglobin ABG Sodium ABG Potassium ABG Chloride ABG Glucose Oxyhemoglobin Sodium Potassium Chloride Carbon Dioxide BUN Creatinine Glucose POC Glucose 134 H 125 H 131 H Lactic Acid Calcium Phosphorus Magnesium Total Bilirubin AST ALT Alkaline Phosphatase Total Protein Albumin Triglycerides Arterial Blood Glucose Arterial Blood Ionized Calcium Crossmatch 01/04/21 01/05/21 01/05/21 23:41 03:23 04:49 WBC RBC Hgb Hct MCV MCHC RDW Plt Count Lymph % (Auto) [place] % (Auto) Lymph # (Auto) [place] # (Auto) Seg Neutrophils % Seg Neuts % (Manual) Lymphocytes % (Manual) Monocytes % (Manual) Seg Neutrophils # Seg Neutrophils # Man Lymphocytes # (Manual) Monocytes # (Manual) PT INR ABG pH POC ABG pCO2 POC ABG pO2 62.8 L ABG pO2 ABG HCO3 ABG O2 Saturation ABG Base Excess ABG Hemoglobin 9.5 L ABG Oxyhemoglobin 92.0 L ABG Sodium 130.1 L ABG Potassium ABG Chloride ABG Glucose 148 H Oxyhemoglobin Sodium Potassium Chloride 96.9 L Carbon Dioxide BUN 57 H Creatinine 6.7 H Glucose 135 H POC Glucose 132 H Lactic Acid Calcium 8.0 L Phosphorus Magnesium Total Bilirubin AST ALT Alkaline Phosphatase Total Protein Albumin Triglycerides Arterial Blood Glucose 148 H Arterial Blood Ionized Calcium 4.1 L Crossmatch 01/05/21 01/05/21 01/05/21 05:04 11:48 12:39 WBC RBC 3.03 L Hgb 9.3 L Hct 27.6 L MCV MCHC RDW 16.5 H Plt Count Lymph % (Auto) [place] % (Auto) Lymph # (Auto) [place] # (Auto) Seg Neutrophils % Seg Neuts % (Manual) Lymphocytes % (Manual) Monocytes % (Manual) Seg Neutrophils # Seg Neutrophils # Man Lymphocytes # (Manual) Monocytes # (Manual) PT INR ABG pH POC ABG pCO2 POC ABG pO2 ABG pO2 ABG HCO3 ABG O2 Saturation ABG Base Excess ABG Hemoglobin ABG Oxyhemoglobin ABG Sodium ABG Potassium ABG Chloride ABG Glucose Oxyhemoglobin Sodium Potassium Chloride Carbon Dioxide BUN Creatinine Glucose POC Glucose 147 H 162 H Lactic Acid Calcium Phosphorus Magnesium Total Bilirubin AST ALT Alkaline Phosphatase Total Protein Albumin Triglycerides Arterial Blood Glucose Arterial Blood Ionized Calcium Crossmatch 01/05/21 01/05/21 01/06/21 17:50 23:32 04:15 WBC RBC Hgb Hct MCV MCHC RDW Plt Count Lymph % (Auto) [place] % (Auto) Lymph # (Auto) [place] # (Auto) Seg Neutrophils % Seg Neuts % (Manual) Lymphocytes % (Manual) Monocytes % (Manual) Seg Neutrophils # Seg Neutrophils # Man Lymphocytes # (Manual) Monocytes # (Manual) PT INR ABG pH POC ABG pCO2 POC ABG pO2 ABG pO2 191.0 H ABG HCO3 ABG O2 Saturation 99.2 H ABG Base Excess ABG Hemoglobin 9.0 L ABG Oxyhemoglobin ABG Sodium ABG Potassium ABG Chloride ABG Glucose Oxyhemoglobin Sodium Potassium Chloride Carbon Dioxide BUN Creatinine Glucose POC Glucose 155 H 115 H Lactic Acid Calcium Phosphorus Magnesium Total Bilirubin AST ALT Alkaline Phosphatase Total Protein Albumin Triglycerides Arterial Blood Glucose Arterial Blood Ionized Calcium Crossmatch 01/06/21 01/06/21 01/06/21 04:45 05:56 07:03 WBC RBC 2.95 L Hgb 9.1 L Hct 26.8 L MCV MCHC RDW 16.8 H Plt Count Lymph % (Auto) [place] % (Auto) Lymph # (Auto) [place] # (Auto) Seg Neutrophils % Seg Neuts % (Manual) Lymphocytes % (Manual) Monocytes % (Manual) Seg Neutrophils # Seg Neutrophils # Man Lymphocytes # (Manual) Monocytes # (Manual) PT INR ABG pH POC ABG pCO2 POC ABG pO2 ABG pO2 ABG HCO3 ABG O2 Saturation ABG Base Excess ABG Hemoglobin ABG Oxyhemoglobin ABG Sodium ABG Potassium ABG Chloride ABG Glucose Oxyhemoglobin Sodium 135 L Potassium Chloride 95.9 L Carbon Dioxide BUN 82 H Creatinine 8.7 H Glucose 127 H POC Glucose 136 H Lactic Acid Calcium 8.3 L Phosphorus Magnesium Total Bilirubin AST ALT Alkaline Phosphatase Total Protein Albumin Triglycerides Arterial Blood Glucose Arterial Blood Ionized Calcium Crossmatch 01/06/21 01/06/21 01/06/21 07:10 11:04 13:38 WBC RBC Hgb Hct MCV MCHC RDW Plt Count Lymph % (Auto) [place] % (Auto) Lymph # (Auto) [place] # (Auto) Seg Neutrophils % Seg Neuts % (Manual) Lymphocytes % (Manual) Monocytes % (Manual) Seg Neutrophils # Seg Neutrophils # Man Lymphocytes # (Manual) Monocytes # (Manual) PT INR ABG pH POC ABG pCO2 POC ABG pO2 ABG pO2 ABG HCO3 ABG O2 Saturation ABG Base Excess ABG Hemoglobin ABG Oxyhemoglobin ABG Sodium ABG Potassium ABG Chloride ABG Glucose Oxyhemoglobin Sodium Potassium Chloride Carbon Dioxide BUN Creatinine Glucose POC Glucose 178 H 155 H Lactic Acid Calcium Phosphorus Magnesium Total Bilirubin AST ALT Alkaline Phosphatase Total Protein Albumin Triglycerides Arterial Blood Glucose Arterial Blood Ionized Calcium Crossmatch See Detail 01/06/21 01/06/21 01/07/21 17:35 22:21 03:07 WBC RBC Hgb Hct MCV MCHC RDW Plt Count Lymph % (Auto) [place] % (Auto) Lymph # (Auto) [place] # (Auto) Seg Neutrophils % Seg Neuts % (Manual) Lymphocytes % (Manual) Monocytes % (Manual) Seg Neutrophils # Seg Neutrophils # Man Lymphocytes # (Manual) Monocytes # (Manual) PT INR ABG pH POC ABG pCO2 POC ABG pO2 ABG pO2 ABG HCO3 ABG O2 Saturation ABG Base Excess ABG Hemoglobin 11.9 L ABG Oxyhemoglobin ABG Sodium 135.6 L ABG Potassium ABG Chloride ABG Glucose 181 H Oxyhemoglobin Sodium Potassium Chloride Carbon Dioxide BUN Creatinine Glucose POC Glucose 138 H 202 H Lactic Acid Calcium Phosphorus Magnesium Total Bilirubin AST ALT Alkaline Phosphatase Total Protein Albumin Triglycerides Arterial Blood Glucose 181 H Arterial Blood Ionized Calcium 4.3 L Crossmatch 01/07/21 01/07/21 01/07/21 04:50 05:21 08:37 WBC 12.4 H RBC Hgb 11.1 L Hct 33.3 L D MCV MCHC RDW 17.0 H Plt Count Lymph % (Auto) 3.2 L [place] % (Auto) 9.4 H Lymph # (Auto) 0.4 L [place] # (Auto) 1.2 H Seg Neutrophils % 86.6 H Seg Neuts % (Manual) Lymphocytes % (Manual) Monocytes % (Manual) Seg Neutrophils # 10.7 H Seg Neutrophils # Man Lymphocytes # (Manual) Monocytes # (Manual) PT INR ABG pH POC ABG pCO2 POC ABG pO2 ABG pO2 ABG HCO3 ABG O2 Saturation ABG Base Excess ABG Hemoglobin ABG Oxyhemoglobin ABG Sodium ABG Potassium ABG Chloride ABG Glucose Oxyhemoglobin Sodium Potassium Chloride Carbon Dioxide BUN 60 H Creatinine 6.3 H Glucose 154 H POC Glucose 177 H Lactic Acid Calcium 8.3 L Phosphorus Magnesium Total Bilirubin AST ALT Alkaline Phosphatase Total Protein Albumin Triglycerides Arterial Blood Glucose Arterial Blood Ionized Calcium Crossmatch 01/07/21 01/07/21 01/07/21 11:21 12:19 17:11 WBC RBC Hgb Hct MCV MCHC RDW Plt Count Lymph % (Auto) [place] % (Auto) Lymph # (Auto) [place] # (Auto) Seg Neutrophils % Seg Neuts % (Manual) Lymphocytes % (Manual) Monocytes % (Manual) Seg Neutrophils # Seg Neutrophils # Man Lymphocytes # (Manual) Monocytes # (Manual) PT INR ABG pH POC ABG pCO2 POC ABG pO2 ABG pO2 ABG HCO3 ABG O2 Saturation ABG Base Excess ABG Hemoglobin ABG Oxyhemoglobin ABG Sodium ABG Potassium ABG Chloride ABG Glucose Oxyhemoglobin Sodium Potassium Chloride Carbon Dioxide BUN Creatinine Glucose POC Glucose 144 H 137 H 119 H Lactic Acid Calcium Phosphorus Magnesium Total Bilirubin AST ALT Alkaline Phosphatase Total Protein Albumin Triglycerides Arterial Blood Glucose Arterial Blood Ionized Calcium Crossmatch 01/07/21 01/07/21 01/08/21 17:14 23:39 04:34 WBC RBC Hgb Hct MCV MCHC RDW Plt Count Lymph % (Auto) [place] % (Auto) Lymph # (Auto) [place] # (Auto) Seg Neutrophils % Seg Neuts % (Manual) Lymphocytes % (Manual) Monocytes % (Manual) Seg Neutrophils # Seg Neutrophils # Man Lymphocytes # (Manual) Monocytes # (Manual) PT INR ABG pH 7.345 L POC ABG pCO2 POC ABG pO2 ABG pO2 67.4 L ABG HCO3 ABG O2 Saturation 94.3 L ABG Base Excess -3.9 L ABG Hemoglobin 8.9 L ABG Oxyhemoglobin ABG Sodium ABG Potassium ABG Chloride ABG Glucose Oxyhemoglobin 92.3 L Sodium Potassium Chloride Carbon Dioxide 20 L BUN 93 H Creatinine 8.8 H Glucose 120 H POC Glucose 129 H Lactic Acid Calcium Phosphorus Magnesium Total Bilirubin AST ALT Alkaline Phosphatase 133 H Total Protein 5.4 L Albumin 1.9 L Triglycerides Arterial Blood Glucose Arterial Blood Ionized Calcium Crossmatch 01/08/21 01/08/21 01/08/21 05:26 11:38 17:19 WBC RBC Hgb Hct MCV MCHC RDW Plt Count Lymph % (Auto) [place] % (Auto) Lymph # (Auto) [place] # (Auto) Seg Neutrophils % Seg Neuts % (Manual) Lymphocytes % (Manual) Monocytes % (Manual) Seg Neutrophils # Seg Neutrophils # Man Lymphocytes # (Manual) Monocytes # (Manual) PT INR ABG pH POC ABG pCO2 POC ABG pO2 ABG pO2 ABG HCO3 ABG O2 Saturation ABG Base Excess ABG Hemoglobin ABG Oxyhemoglobin ABG Sodium ABG Potassium ABG Chloride ABG Glucose Oxyhemoglobin Sodium Potassium Chloride Carbon Dioxide BUN Creatinine Glucose POC Glucose 125 H 146 H 136 H Lactic Acid Calcium Phosphorus Magnesium Total Bilirubin AST ALT Alkaline Phosphatase Total Protein Albumin Triglycerides Arterial Blood Glucose Arterial Blood Ionized Calcium Crossmatch 01/08/21 01/09/21 01/09/21 23:52 05:13 05:21 WBC RBC Hgb Hct MCV MCHC RDW Plt Count Lymph % (Auto) [place] % (Auto) Lymph # (Auto) [place] # (Auto) Seg Neutrophils % Seg Neuts % (Manual) Lymphocytes % (Manual) Monocytes % (Manual) Seg Neutrophils # Seg Neutrophils # Man Lymphocytes # (Manual) Monocytes # (Manual) PT INR ABG pH POC ABG pCO2 POC ABG pO2 ABG pO2 ABG HCO3 ABG O2 Saturation ABG Base Excess ABG Hemoglobin ABG Oxyhemoglobin ABG Sodium ABG Potassium ABG Chloride ABG Glucose Oxyhemoglobin Sodium Potassium Chloride Carbon Dioxide 16 L BUN 123 H Creatinine 10.8 H Glucose 145 H POC Glucose 143 H 144 H Lactic Acid Calcium Phosphorus 5.00 H D Magnesium 2.40 H Total Bilirubin AST ALT Alkaline Phosphatase Total Protein Albumin Triglycerides Arterial Blood Glucose Arterial Blood Ionized Calcium Crossmatch 01/09/21 01/09/21 01/09/21 12:08 17:20 23:56 WBC RBC Hgb Hct MCV MCHC RDW Plt Count Lymph % (Auto) [place] % (Auto) Lymph # (Auto) [place] # (Auto) Seg Neutrophils % Seg Neuts % (Manual) Lymphocytes % (Manual) Monocytes % (Manual) Seg Neutrophils # Seg Neutrophils # Man Lymphocytes # (Manual) Monocytes # (Manual) PT INR ABG pH POC ABG pCO2 POC ABG pO2 ABG pO2 ABG HCO3 ABG O2 Saturation ABG Base Excess ABG Hemoglobin ABG Oxyhemoglobin ABG Sodium ABG Potassium ABG Chloride ABG Glucose Oxyhemoglobin Sodium Potassium Chloride Carbon Dioxide BUN Creatinine Glucose POC Glucose 153 H 160 H 158 H Lactic Acid Calcium Phosphorus Magnesium Total Bilirubin AST ALT Alkaline Phosphatase Total Protein Albumin Triglycerides Arterial Blood Glucose Arterial Blood Ionized Calcium Crossmatch 01/10/21 01/10/21 01/10/21 04:52 05:44 07:41 WBC RBC Hgb Hct MCV MCHC RDW Plt Count Lymph % (Auto) [place] % (Auto) Lymph # (Auto) [place] # (Auto) Seg Neutrophils % Seg Neuts % (Manual) Lymphocytes % (Manual) Monocytes % (Manual) Seg Neutrophils # Seg Neutrophils # Man Lymphocytes # (Manual) Monocytes # (Manual) PT INR ABG pH POC ABG pCO2 POC ABG pO2 ABG pO2 ABG HCO3 ABG O2 Saturation ABG Base Excess ABG Hemoglobin ABG Oxyhemoglobin ABG Sodium ABG Potassium ABG Chloride ABG Glucose Oxyhemoglobin Sodium 135 L Potassium 3.5 L D Chloride 95.0 L Carbon Dioxide 21 L BUN 93 H Creatinine 8.3 H Glucose 127 H POC Glucose 135 H 157 H Lactic Acid Calcium Phosphorus Magnesium Total Bilirubin AST ALT Alkaline Phosphatase Total Protein Albumin Triglycerides Arterial Blood Glucose Arterial Blood Ionized Calcium Crossmatch 01/10/21 01/10/21 09:26 12:03 WBC 18.2 H RBC 3.14 L Hgb 9.7 L Hct 28.2 L MCV MCHC RDW 16.5 H Plt Count Lymph % (Auto) [place] % (Auto) Lymph # (Auto) [place] # (Auto) Seg Neutrophils % Seg Neuts % (Manual) 95.0 H Lymphocytes % (Manual) 3.0 L Monocytes % (Manual) Seg Neutrophils # Seg Neutrophils # Man 17.3 H Lymphocytes # (Manual) 0.5 L Monocytes # (Manual) PT INR ABG pH POC ABG pCO2 POC ABG pO2 ABG pO2 ABG HCO3 ABG O2 Saturation ABG Base Excess ABG Hemoglobin ABG Oxyhemoglobin ABG Sodium ABG Potassium ABG Chloride ABG Glucose Oxyhemoglobin Sodium Potassium Chloride Carbon Dioxide BUN Creatinine Glucose POC Glucose 163 H Lactic Acid Calcium Phosphorus Magnesium Total Bilirubin AST ALT Alkaline Phosphatase Total Protein Albumin Triglycerides Arterial Blood Glucose Arterial Blood Ionized Calcium Crossmatch Allied health notes reviewed: nursing
--- NOTE | 2021-01-10 15:57 | Progress Note ---
Assessment and Plan Cultures: 12/22/2020 blood culture: Streptococcus bovis, Prevotella 12/22/2020 PD fluid culture: No growth 12/24/2020 tracheal aspirate culture: Gwendolyn albicans (likely a colonizer) 12/24/2020 blood culture: No growth 12/31/2020 sputum culture: No growth A/P: 60-year-old male with ESRD on PD, Crohn's disease, CHF, gastroesophageal reflux disease was admitted to the hospital with complaints of abdominal pain and fever: #Severe sepsis with shock: Remarkable improvement, off pressors (on Levophed and vasopressin), leukocytosis improving. Secondary to small bowel obstruction/necrotic bowel with associated peritonitis. Status post exploratory laparotomy on 12/23/2020 with extensive lysis, primary anastomosis, found to have necrotic segment of small bowel. #Small bowel obstruction/necrotic bowel: with concern for PD associated peritonitis: Nephrology and general surgery following. Status post exploratory laparotomy on 12/23/2020 with extensive lysis, primary anastomosis, found to have necrotic segment of small bowel. PD catheter remains in place. S/p ex lap, resection of perforated anastamosis, washout and abthera wound vac placement on 01/01. Repeat CT abdomen shows no new abscesses, noted small free fluid. S/p Exploratory laparotomy, Right hemicolectomy, Peritoneal lavage, Partial ome ntectomy, ABThera wound VAC placement on 01/03/2021. #Streptococcus bovis bacteremia and Prevotella bacteremia: secondary to above. TTE without obvious vegetations. Repeat blood cultures negative. #ESRD: Renally dose antibiotics. Used to be on PD, cath remains in place. Now on HD. #Elevated LFTs: Secondary to sepsis. #Acute respiratory failure: extubated, then re-intubated 12/31/2020. #Anemia: Severe. Recs: -Completed antibiotics -On TPN -Monitor off abx -If white count continues to uptrend tomorrow will start Estefani Redding MD [facility] ([facility] O: [phone] F: [phone] Subjective Date of service: 01/10/21 Principal diagnosis: Ac hypoxemic resp failure; Severe Sepsis; Peritonitis; Acute SBO; ESRD; CHF Interval history: Afebrile, white count 18.2 which is higher than yesterday. Objective - Exam Narrative Exam: Narrative Exam: General appearance: Awake, alert Eyes: anicteric sclerae, moist conjunctivae; no lid-lag; PERRLA HENT: Normocephalic, Atraumatic; normal external ears, nares open, oropharynx limited with endotracheal tube, tongue out with edema Neck: supple, tracheal midline, no JVD Lungs: Coarse breath sounds bilaterally CV: Tachycardic Abdomen: Soft, tender. Midline abdominal wound Extremities: no edema, no cyanosis Skin: No rash. Psych: No agitation Neuro: No agitation - Constitutional Vitals: Vital Signs Temp Pulse Resp BP Pulse Ox 98.5 F 89 22 167/69 96 01/10/21 12:00 01/10/21 13:51 01/10/21 10:00 01/10/21 13:51 01/10/21 10:00 Temperature -Last 24 Hours Temperature 98.5 F Temperature 98.8 F Temperature 98.5 F Temperature 98.6 F Temperature 98.8 F Temperature 98.6 F - Labs CBC & Chem 7: 01/10/21 09:26 01/10/21 04:52 Labs: Abnormal lab results 01/09/21 01/09/21 01/10/21 Range/Units 17:20 23:56 04:52 WBC (4.5-11.0) K/mm3 RBC (3.65-5.03) M/mm3 Hgb (11.8-15.2) gm/dl Hct (35.5-45.6) % RDW (13.2-15.2) % Seg Neuts % (Manual) (40.0-70.0) % Lymphocytes % (Manual) (13.4-35.0) % Seg Neutrophils # Man (1.8-7.7) K/mm3 Lymphocytes # (Manual) (1.2-5.4) K/mm3 Sodium 135 L (137-145) mmol/L Potassium 3.5 L D (3.6-5.0) mmol/L Chloride 95.0 L (98-107) mmol/L Carbon Dioxide 21 L (22-30) mmol/L BUN 93 H (9-20) mg/dL Creatinine 8.3 H (0.8-1.3) mg/dL Glucose 127 H (75-100) mg/dL POC Glucose 160 H 158 H (70-105) mg/dL 01/10/21 01/10/21 01/10/21 Range/Units 05:44 07:41 09:26 WBC 18.2 H (4.5-11.0) K/mm3 RBC 3.14 L (3.65-5.03) M/mm3 Hgb 9.7 L (11.8-15.2) gm/dl Hct 28.2 L (35.5-45.6) % RDW 16.5 H (13.2-15.2) % Seg Neuts % (Manual) 95.0 H (40.0-70.0) % Lymphocytes % (Manual) 3.0 L (13.4-35.0) % Seg Neutrophils # Man 17.3 H (1.8-7.7) K/mm3 Lymphocytes # (Manual) 0.5 L (1.2-5.4) K/mm3 Sodium (137-145) mmol/L Potassium (3.6-5.0) mmol/L Chloride (98-107) mmol/L Carbon Dioxide (22-30) mmol/L BUN (9-20) mg/dL Creatinine (0.8-1.3) mg/dL Glucose (75-100) mg/dL POC Glucose 135 H 157 H (70-105) mg/dL 01/10/21 Range/Units 12:03 WBC (4.5-11.0) K/mm3 RBC (3.65-5.03) M/mm3 Hgb (11.8-15.2) gm/dl Hct (35.5-45.6) % RDW (13.2-15.2) % Seg Neuts % (Manual) (40.0-70.0) % Lymphocytes % (Manual) (13.4-35.0) % Seg Neutrophils # Man (1.8-7.7) K/mm3 Lymphocytes # (Manual) (1.2-5.4) K/mm3 Sodium (137-145) mmol/L Potassium (3.6-5.0) mmol/L Chloride (98-107) mmol/L Carbon Dioxide (22-30) mmol/L BUN (9-20) mg/dL Creatinine (0.8-1.3) mg/dL Glucose (75-100) mg/dL POC Glucose 163 H (70-105) mg/dL
--- NOTE | 2021-01-10 17:22 | Progress Note ---
Assessment and Plan Assessment and plan: This is a 60-year-old male with ESRD on peritoneal dialysis, Crohn's, hypertension, systolic CHF (EF 35%) who was admitted with sepsis, peritonitis, small bowel obstruction and treptococcus bovis bacteremia/Prevotella bacteremia Severe Sepsis with shock Streptococcus bovis bacteremia/Prevotella bacteremia Gwendolyn albicans tracheal aspirate Small bowel obstruction/necrotic bowel s/p ex lap with extensive lysis of adhesions, 2 small bowel resections with primary anastomosis, right hemicolectomy, jejunal colonic anastomosis, segmental small bowel resection Acute hypoxic respiratory failure Postoperative ileus Atrial fibrillation with RVR Hyperkalemia Gwendolyn albicans in tracheal aspirate from 12/24 ESRD on PD, PermCath to be placed Transaminitis Systolic CHF(EF 35%) Crohn's disease Hypertension -[facility], surgery, infectious disease, nephrology, vascular surgery, cardiology consulted, appreciate recommendations -S/p ex lap with extensive expectations, 2 small bowel resections with primary anastomosis with surgery on 12/23 -s/p PICC and Permacath placement with vascular surgery on 12/27 -Extubated on 12/28, reintubated 12/31 for respiratory distress and extubated 01/08 -12/29 echocardiogram shows moderate concentric LVH, small pericardial effusion, transmitral Doppler flow pattern is grade 1 abnormal relaxation pattern, left- ventricular systolic function normal, LVEF 50 to 55%, no wall motion abnorma lities. -01/01 CT abdomen/pelvis shows small pericardial effusion, mild coronary artery atherosclerotic calcification, small bilateral pleural effusions with associated volume loss, no convincing evidence of bowel obstruction or inflammation, postoperative changes from interval/recent midline laparotomy with a moderate amount of free fluid throughout the abdomen, small amount of dependent free air presumably postoperative -01/01 s/p ex lap, resection of perforated anastamosis, washout and abthera wound vac placement. -01/05 s/p ex lap with right hemicolectomy. -01/08 s/p exploratory laparotomy, Jejunal colonic anastomosis, Segmental small bowel resection. -s/p Vasopressor support with Levophed and vasopressin -Transitioned to HD from PD -HD per nephro -NPO -TPN -NGT to LIS -s/p IV antibiotics -Tobacco abuse cessation counseling -Trend CBC, BMP DVT/GI prophylaxis: PPI, heparin subcu, SCDs to bilateral lower extremities while in bed Disposition: CU Critical care statement The high probability of a clinically significant, sudden or life threatening deterioration of the [pulmonary, cardiac, neuro, renal] system(s) required my full and direct attention, intervention and personal management. The aggregate critical care time was [35] minutes. This time is in addition to time spent performing reported procedures but includes the following: [x] Data Review and interpretation [x] Patient assessment and monitoring of vital signs [x] Documentation [x] Medication orders and management History Interval history: This is a 60 YO Male with ESRD on PD, GERD, Crohn's Disease, Nicotine Dependence, HTN, Systolic CHF(EF 35%) who presented to the emergency department on 12/22 with complaints of abdominal pain which began shortly after eating fast food rated 10/10 which is periumbilical, constant, associated with fever, nausea and multiple sites of vomiting and self-reported inability to undergo PD. In the emergency room patient underwent a CT scan of the abdomen/pelvis which revealed evidence of partial small bowel obstruction, symptoms were consistent with bacterial peritonitis. Patient was admitted to the hospital service with sepsis, peritonitis, and small bowel obstruction with consults to general surg alisson, nephrology, infectious disease and [facility]. 12/23. Patient had temperature 101.2 F, tachycardia and elevated lactic acid on admission. Meet sepsis criteria. Started on IV antibiotics. ID has been consulted. Surgery consulted this a.m.-advised laparoscopy. He remains on NG tube connected to suction. 12/24. Patient was noted to have peritonitis yesterday and patient undergoing exploratory laparotomy. Patient remained intubated after procedure and is in ICU. Now on broad-spectrum antibiotics. ID on board. 12/25. Remains mechanically ventilated and sedated. Temp 103 Fahrenheit. Antib iotics broadened-ID added fluconazole and Flagyl. Blood cultures ordered. Plan to repeat CT abdomen tomorrow if not better. Surgery following. 12/26: Patient remains on mechanical ventilation on CMV tidal line 550, rate of 14, PEEP of 8 and 30% FiO2 and sedated on fentanyl 4 micrograms. Today we will remove his Jeffery and [facility] dropped his rate controlled him on CPAP. We will trend CBC given recent drop in H/H. 12/27: Patient remains intubated on CMV tidal volume 550, rate 12, PEEP 8 on 30% FiO2 at the time my examination. Patient's TPN will be changed to PPN. Patient's fentanyl drip will be changed to IV push fentanyl and have a permacath placed today and midline. Patient was placed on a spontaneous breathing trial was switched back to CMV prior to procedure. 12/28: Patient on fentanyl but awake and follows commands. At the time of my examination he was on a CPAP trial and is scheduled to receive HD today. s/o permacath and PICC placement with vascular yesterday. His blood culture grew Prevotella and addition to Streptococcus bovis. This evening Dr. Spicer attempted to extubate the patient and his heart rate went to the 180s. Stat EKG obtained and cardiology consulted. 12/29: Patient was started on amiodarone IV for A. fib RVR yesterday and today he is more rate controlled into the 70s and 80s. Patient was extubated yesterday and is currently on Ventimask. Patient will be transferred to [facility]. Patient continues to be n.p.o. with TPN and NG tube to LIS. He is hypokalemic today which was repleted. 12/30; patient was on IV amiodarone for treatment with RVR, rate is controlled. Patient was off oxygen. patient is n.p.o. and on TPN. Surgery is following the patient. 12/31: Patient was intubated overnight for respiratory distress and this morning on examination he was on assist control tidal volume 450, rate 20, PEEP 6, 100% FiO2 and RT was getting a ABG to adjust vent settings. Patient had a acute bump in WBC and per ID recommendations we will obtain a CT abdomen/pelvis if leukocytosis persist. Patient is on TPN and sedated with Levophed. Patient is also on vasopressor support with Levophed. Per surgery his ileus is resolving however will maintain OGT to LIWS. 01/01: Patient was started on a vasopressin yesterday late evening. This morning patient is on 20 mcg of Levophed and 0.03 vasopressin and sedated on 20 mcg of propofol. Patient WBC increased today and he is hypokalemic. We will treat hyperkalemia. Patient had a CT chest and abdomen/pelvis pending. The time examination total of 450, rate 20, PEEP of 6 and 35 percent FiO2. Per RN, Dr Marquita garcía has stated that the patient will be returning to the OR today for likely anastomosis seen on CT abdomen/pelvis. This is a 60 YO Male with ESRD on PD, GERD, Crohn's Disease, Nicotine Dependence, HTN, Systolic CHF(EF 35%) who presented to the emergency department on 12/22 with complaints of abdominal pain which began shortly after eating fast food rated 10/10 which is periumbilical, constant, associated with fever, nausea and multiple sites of vomiting and self-reported inability to undergo PD. In the emergency room patient underwent a CT scan of the abdomen/pelvis which revealed evidence of partial small bowel obstruction, symptoms were consistent with bacterial peritonitis. Patient was admitted to the hospital service with sepsis, peritonitis, and small bowel obstruction with consults to general surgery, nephrology, infectious disease and [facility]. 12/23. Patient had temperature 101.2 F, tachycardia and elevated lactic acid on admission. Meet sepsis criteria. Started on IV antibiotics. ID has been consulted. Surgery consulted this a.m.-advised laparoscopy. He remains on NG tube connected to suction. 12/24. Patient was noted to have peritonitis yesterday and patient undergoing exploratory laparotomy. Patient remained intubated after procedure and is in ICU. Now on broad-spectrum antibiotics. ID on board. 12/25. Remains mechanically ventilated and sedated. Temp 103 Fahrenheit. Antibiotics broadened-ID added fluconazole and Flagyl. Blood cultures ordered. Plan to repeat CT abdomen tomorrow if not better. Surgery following. 12/26: Patient remains on mechanical ventilation on CMV tidal line 550, rate of 14, PEEP of 8 and 30% FiO2 and sedated on fentanyl 4 micrograms. Today we will remove his Jeffery and [facility] dropped his rate controlled him on CPAP. We will trend CBC given recent drop in H/H. 12/27: Patient remains intubated on CMV tidal volume 550, rate 12, PEEP 8 on 30% FiO2 at the time my examination. Patient's TPN will be changed to PPN. P atient's fentanyl drip will be changed to IV push fentanyl and have a permacath placed today and midline. Patient was placed on a spontaneous breathing trial was switched back to CMV prior to procedure. 12/28: Patient on fentanyl but awake and follows commands. At the time of my examination he was on a CPAP trial and is scheduled to receive HD today. s/o permacath and PICC placement with vascular yesterday. His blood culture grew Prevotella and addition to Streptococcus bovis. This evening Dr. Spicer attempted to extubate the patient and his heart rate went to the 180s. Stat EKG obtained and cardiology consulted. 12/29: Patient was started on amiodarone IV for A. fib RVR yesterday and today he is more rate controlled into the 70s and 80s. Patient was extubated yesterday and is currently on Ventimask. Patient will be transferred to [facility]. Patient continues to be n.p.o. with TPN and NG tube to LIS. He is hypokalemic today which was repleted. 12/30; patient was on IV amiodarone for treatment with RVR, rate is controlled. Patient was off oxygen. patient is n.p.o. and on TPN. Surgery is following the patient. 12/31: Patient was intubated overnight for respiratory distress and this morning on examination he was on assist control tidal volume 450, rate 20, PEEP 6, 100% FiO2 and RT was getting a ABG to adjust vent settings. Patient had a acute bump in WBC and per ID recommendations we will obtain a CT abdomen/pelvis if leukocytosis persist. Patient is on TPN and sedated with Levophed. Patient is also on vasopressor support with Levophed. Per surgery his ileus is resolving however will maintain OGT to LIWS. 01/01: Patient was started on a vasopressin yesterday late evening. This morning patient is on 20 mcg of Levophed and 0.03 vasopressin and sedated on 20 mcg of propofol. Patient WBC increased today and he is hypokalemic. We will treat hyperkalemia. Patient had a CT chest and abdomen/pelvis pending. The time examination total of 450, rate 20, PEEP of 6 and 35 percent FiO2. Per RN, Dr Pollock has stated that the patient will be returning to the OR today for likely anastomosis seen on CT abdomen/pelvis. 01/02: Patient noted, WBC improving, but noted to have anemia, will transfuse additional unit of Blood and repeat H/H. continue supportive care. 01/03: Continue to wean pressors, ABX PER ID, patient to return to OR today for washout and possible closure, CONTINUE TPN 01/04: Continues to show some improvement. Today is POD#12 s/p ex lap with extensive lysis of adhesions and two small bowel resections with primary anastamosis for SBO with necrotic segment small bowel. POD#3 s/p ex lap, resection of perforated anastamosis, washout and abthera wound vac placement. POD#1 s/p ex lap with right hemicolectomy. Surgery planning to take back to the OR on Saturday with the hope to anastamos ileum to transverse colon and close abdomen. keep NGT to suction. Pt in deep sedation due to open abdomen. Per ID - Continue IV Zosyn, renally dosed for Strep bacteremia treatment till 01/06/2021 -On TPN 01/05: Patient continues on HD, anticipate return to OR tomorrow for closure and anastemosis. Continues with deep sedation due to open abdomen 01/06: Continue supportive care, monitor pressures and electrolytes. He is post op Exploratory laparotomy, 2. Jejunal colonic anastomosis,3. Segmental small bowel resection and anastemosis closure today. Continue wound vac 01/07: Continue supportive care, Today is POD#15 s/p ex lap with extensive lysis of adhesions and two small bowel resections with primary anastamosis for SBO wi th necrotic segment small bowel. POD#6 s/p ex lap, resection of perforated anastamosis, washout and abthera wound vac placement. POD#4s/p ex lap with right hemicolectomy.POD #1 exploratory laparotomy, 2. Jejunal colonic anastomosis,3. Segmental small bowel resection. Continue to monitor and correct electrolytes. Patient remains on fentanyl and TPN with lipids. Still hypoactive bowel sounds. 16: Patient now extubated, asked when he can go home, Still lethargic. Continue wound management, wound vac, Will need Rehab eval prior to discharge. 01/09: Patient remains on TPN, was started on labetalol drip per cardiology, patient had uncontrolled hypertension today however he cannot be given p.o. medications ileus resolves per surgery. Patient received hemodialysis today. NG tube remains to low intermittent suction. 01/10: Patient has some leukocytosis, slight hypokalemia and hyponatremia, metabolic acidosis. NG tube to LIWS, continue TPN. Patient will be downgraded to IMCU today. [facility] is working on placement. Will change frequency of hydralazine and discontinue labetalol drip. We will obtain a.m. BMP/mag/Phos and CBC. Infectious disease will like to start Zosyn if leukocytosis continues to worsen. Hospitalist Physical - Constitutional Vitals: Temp Pulse Resp BP Pulse Ox 98.5 F 89 22 167/69 96 01/10/21 12:00 01/10/21 13:51 01/10/21 10:00 01/10/21 13:51 01/10/21 10:00 General appearance: Present: no acute distress - EENT Eyes: Present: PERRL, EOM intact ENT: hearing decreased - Neck Neck: Present: normal ROM - Respiratory Respiratory effort: normal Respiratory: bilateral: diminished - Cardiovascular Rhythm: regular Heart Sounds: Present: S1 & S2. Absent: systolic murmur, diastolic murmur - Extremities Extremities: no ischemia, pulses intact, pulses symmetrical, No edema, normal temperature, normal color Peripheral Pulses: within normal limits - Abdominal General gastrointestinal: soft, non-tender, non-distended, normal bowel sounds - Integumentary Integumentary: Present: warm, dry - Psychiatric Psychiatric: agitated - Neurologic Neurologic: CNII-XII intact, no focal deficits, moves all extremities - Allied Health Allied health notes reviewed: nursing, RT, social work HEART Score - HEART Score Troponin: Troponin T 0.021 ng/mL (0.00-0.029) 12/22/20 14:38 Results - Labs CBC & Chem 7: 01/10/21 09:26 01/10/21 04:52 Labs: Laboratory Last Values WBC 18.2 K/mm3 (4.5-11.0) H 01/10/21 09:26 RBC 3.14 M/mm3 (3.65-5.03) L 01/10/21 09:26 Hgb 9.7 gm/dl (11.8-15.2) L 01/10/21 09:26 Hct 28.2 % (35.5-45.6) L 01/10/21 09:26 MCV 90 fl (84-94) 01/10/21 09:26 MCH 31 pg (28-32) 01/10/21 09:26 MCHC 34 % (32-34) 01/10/21 09:26 RDW 16.5 % (13.2-15.2) H 01/10/21 09:26 Plt Count 354 K/mm3 (140-440) 01/10/21 09:26 Lymph % (Auto) 3.2 % (13.4-35.0) L 01/07/21 08:37 [place] % (Auto) 9.4 % (0.0-7.3) H 01/07/21 08:37 Eos % (Auto) 0.4 % (0.0-4.3) 01/07/21 08:37 Baso % (Auto) 0.4 % (0.0-1.8) 01/07/21 08:37 Lymph # (Auto) 0.4 K/mm3 (1.2-5.4) L 01/07/21 08:37 [place] # (Auto) 1.2 K/mm3 (0.0-0.8) H 01/07/21 08:37 Eos # (Auto) 0.1 K/mm3 (0.0-0.4) 01/07/21 08:37 Baso # (Auto) 0.1 K/mm3 (0.0-0.1) 01/07/21 08:37 Add Manual Diff Complete 01/10/21 09:26 Total Counted 100 01/10/21 09:26 Seg Neutrophils % Vp Platforms 01/10/21 09:26 Seg Neuts % (Manual) 95.0 % (40.0-70.0) H 01/10/21 09:26 Band Neutrophils % 1.0 % 01/10/21 09:26 Lymphocytes % (Manual) 3.0 % (13.4-35.0) L 01/10/21 09:26 Reactive Lymphs % (Man) 1.0 % 12/29/20 05:16 Monocytes % (Manual) 1.0 % (0.0-7.3) 01/10/21 09:26 Eosinophils % (Manual) 2.0 % (0.0-4.3) 12/29/20 05:16 Metamyelocytes % 2.0 % 12/29/20 05:16 Nucleated RBC % Not Reportable 01/10/21 09:26 Seg Neutrophils # 10.7 K/mm3 (1.8-7.7) H 01/07/21 08:37 Seg Neutrophils # Man 17.3 K/mm3 (1.8-7.7) H 01/10/21 09:26 Band Neutrophils # 0.2 K/mm3 01/10/21 09:26 Lymphocytes # (Manual) 0.5 K/mm3 (1.2-5.4) L 01/10/21 09:26 Abs React Lymphs (Man) 0.0 K/mm3 01/10/21 09:26 Monocytes # (Manual) 0.2 K/mm3 (0.0-0.8) 01/10/21 09:26 Eosinophils # (Manual) 0.0 K/mm3 (0.0-0.4) 01/10/21 09:26 Basophils # (Manual) 0.0 K/mm3 (0.0-0.1) 01/10/21 09:26 Metamyelocytes # 0.0 K/mm3 01/10/21 09:26 Myelocytes # 0.0 K/mm3 01/10/21 09:26 Promyelocytes # 0.0 K/mm3 01/10/21 09:26 Blast Cells # 0.0 K/mm3 01/10/21 09:26 WBC Morphology Not Reportable 01/10/21 09:26 Hypersegmented Neuts Not Reportable 01/10/21 09:26 Hyposegmented Neuts Not Reportable 01/10/21 09:26 Hypogranular Neuts Not Reportable 01/10/21 09:26 Smudge Cells Not Reportable 01/10/21 09:26 Toxic Granulation 1+ 01/10/21 09:26 Toxic Vacuolation Not Reportable 01/10/21 09:26 Dohle Bodies Not Reportable 01/10/21 09:26 Pelger-Huet Anomaly Not Reportable 01/10/21 09:26 Lamar Rods Not Reportable 01/10/21 09:26 Platelet Estimate Consistent w auto 01/10/21 09:26 Clumped Platelets Not Reportable 01/10/21 09:26 Plt Clumps, EDTA Not Reportable 01/10/21 09:26 Large Platelets Not Reportable 01/10/21 09:26 Giant Platelets Not Reportable 01/10/21 09:26 Platelet Satelliting Not Reportable 01/10/21 09:26 Plt Morphology Comment Not Reportable 01/10/21 09:26 RBC Morphology Not Reportable 01/10/21 09:26 Dimorphic RBCs Not Reportable 01/10/21 09:26 Polychromasia Not Reportable 01/10/21 09:26 Hypochromasia Not Reportable 01/10/21 09:26 Poikilocytosis Not Reportable 01/10/21 09:26 Anisocytosis 1+ 01/10/21 09:26 Microcytosis Not Reportable 01/10/21 09:26 Macrocytosis Not Reportable 01/10/21 09:26 Spherocytes Not Reportable 01/10/21 09:26 Pappenheimer Bodies Not Reportable 01/10/21 09:26 Sickle Cells Not Reportable 01/10/21 09:26 Target Cells Not Reportable 01/10/21 09:26 Tear Drop Cells Not Reportable 01/10/21 09:26 Ovalocytes Not Reportable 01/10/21 09:26 Helmet Cells Not Reportable 01/10/21 09:26 [place] Bodies Not Reportable 01/10/21 09:26 [place] Rings Not Reportable 01/10/21 09:26 [place] Cells Not Reportable 01/10/21 09:26 Bite Cells Not Reportable 01/10/21 09:26 Crenated Cell Not Reportable 01/10/21 09:26 Elliptocytes Not Reportable 01/10/21 09:26 Acanthocytes (Spur) Not Reportable 01/10/21 09:26 Rouleaux Not Reportable 01/10/21 09:26 Hemoglobin C Crystals Not Reportable 01/10/21 09:26 Schistocytes Not Reportable 01/10/21 09:26 Malaria parasites Not Reportable 01/10/21 09:26 Lucas Bodies Not Reportable 01/10/21 09:26 Hem Pathologist Commnt No 01/10/21 09:26 PT 16.9 Sec. (12.2-14.9) H 01/01/21 12:45 INR 1.39 (0.87-1.13) H 01/01/21 12:45 APTT 25.1 Sec. (24.2-36.6) 12/22/20 14:38 ABG pH 7.345 pH Units (7.350-7.450) L 01/07/21 17:14 POC ABG pCO2 41.4 mmHg (32.0-48.0) 01/07/21 03:07 ABG pCO2 40.3 mm Hg 01/07/21 17:14 POC ABG pO2 94.5 mmHg (83-108) 01/07/21 03:07 ABG pO2 67.4 mm Hg (80.0-90.0) L 01/07/21 17:14 POC ABG HCO3 22.7 01/07/21 03:07 ABG HCO3 21.5 mmol/L (20.0-26.0) 01/07/21 17:14 ABG O2 Saturation 94.3 % (95.0-99.0) L 01/07/21 17:14 ABG O2 Content 11.6 (0.0-44) 01/07/21 17:14 POC ABG Base Excess -2.7 01/07/21 03:07 ABG Base Excess -3.9 mmol/L (-2.0-3.0) L 01/07/21 17:14 ABG Hemoglobin 8.9 gm/dl (14.0-18.0) L 01/07/21 17:14 ABG Oxyhemoglobin 96.6 (94-98) 01/07/21 03:07 ABG Carboxyhemoglobin 1.5 % (0.0-5.0) 01/07/21 17:14 ABG Methemoglobin 0.6 % (0.0-1.5) 01/07/21 17:14 ABG Sodium 135.6 mmol/L (136.0-145.0) L 01/07/21 03:07 ABG Potassium 4.0 mmol/L (3.40-4.50) 01/07/21 03:07 ABG Chloride 102.0 mmol/L (98-107) 01/07/21 03:07 ABG Glucose 181 mg/dL (65-95) H 01/07/21 03:07 Oxyhemoglobin 92.3 % (95.0-99.0) L 01/07/21 17:14 Carboxyhemoglobin 0.7 (0.5-1.5) 01/07/21 03:07 FiO2 21 % 01/07/21 17:14 FiO2 % 45.0 01/07/21 03:07 Sodium 135 mmol/L (137-145) L 01/10/21 04:52 Potassium 3.5 mmol/L (3.6-5.0) L D 01/10/21 04:52 Chloride 95.0 mmol/L (98-107) L 01/10/21 04:52 Carbon Dioxide 21 mmol/L (22-30) L 01/10/21 04:52 Anion Gap 23 mmol/L 01/10/21 04:52 BUN 93 mg/dL (9-20) H 01/10/21 04:52 Creatinine 8.3 mg/dL (0.8-1.3) H 01/10/21 04:52 Estimated GFR 8 ml/min 01/10/21 04:52 BUN/Creatinine Ratio 11 % 01/10/21 04:52 Glucose 127 mg/dL (75-100) H 01/10/21 04:52 POC Glucose 163 mg/dL (70-105) H 01/10/21 12:03 Lactic Acid 1.50 mmol/L (0.7-2.0) 01/02/21 18:00 Calcium 8.9 mg/dL (8.4-10.2) 01/10/21 04:52 Phosphorus 4.20 mg/dL (2.5-4.5) 01/10/21 04:52 Magnesium 2.00 mg/dL (1.7-2.3) 01/10/21 04:52 Total Bilirubin 0.90 mg/dL (0.1-1.2) 01/08/21 04:34 AST 30 units/L (5-40) 01/08/21 04:34 ALT 29 units/L (7-56) 01/08/21 04:34 Alkaline Phosphatase 133 units/L (35-129) H 01/08/21 04:34 Ammonia 30.0 umol/L (25-60) 12/22/20 14:38 Troponin T 0.021 ng/mL (0.00-0.029) 12/22/20 14:38 Total Protein 5.4 g/dL (6.3-8.2) L 01/08/21 04:34 Albumin 1.9 g/dL (3.9-5) L 01/08/21 04:34 Albumin/Globulin Ratio 0.5 % 01/08/21 04:34 Triglycerides 155 mg/dL (2-149) H 12/30/20 09:00 Lipase 41 units/L (13-60) 12/22/20 14:38 Procalcitonin > 200.00 ng/mL (<0.15) 12/24/20 15:06 TSH 1.470 mlU/mL (0.270-4.200) 12/28/20 19:44 Arterial Blood Glucose 181 mg/dL (65-95) H 01/07/21 03:07 Arterial Blood Ionized Calcium 4.3 mg/dL (4.6-5.3) L 01/07/21 03:07 Urine Color Yellow (Yellow) 12/22/20 18:53 Urine Turbidity Clear (Clear) 12/22/20 18:53 Urine pH 7.0 (5.0-7.0) 12/22/20 18:53 Ur Specific [place] 1.012 (1.003-1.030) 12/22/20 18:53 Urine Protein >500 mg/dL (Negative) 12/22/20 18:53 Urine Glucose (UA) Neg mg/dL (Negative) 12/22/20 18:53 Urine Ketones Neg mg/dL (Negative) 12/22/20 18:53 Urine Blood Neg (Negative) 12/22/20 18:53 Urine Nitrite Neg (Negative) 12/22/20 18:53 Urine Bilirubin Neg (Negative) 12/22/20 18:53 Urine Urobilinogen < 2.0 mg/dL (<2.0) 12/22/20 18:53 Ur Leukocyte Esterase Neg (Negative) 12/22/20 18:53 Urine WBC (Auto) < 1.0 /HPF (0.0-6.0) 12/22/20 18:53 Urine RBC (Auto) 1.0 /HPF (0.0-6.0) 12/22/20 18:53 Fluid Type Dialysate 12/22/20 Unknown Fluid Color Colorless 12/22/20 Unknown Fluid Appearance Cloudy 12/22/20 Unknown Fluid WBC 208 /mm3 12/22/20 Unknown Fluid RBC 45 /mm3 12/22/20 Unknown Fluid Seg Neutrophils 82.0 % 12/22/20 Unknown Fluid Lymphocytes 11.0 % 12/22/20 Unknown Fluid Reactive Lymphs 0 % 12/22/20 Unknown Fluid Monocytes 7.0 % 12/22/20 Unknown Fluid Eosinophils 0 % 12/22/20 Unknown Fluid Basophils 0 % 12/22/20 Unknown Random Vancomycin 13.7 ug/mL (0-40.0) 12/26/20 Unknown Hepatitis A IgM Ab Non-reactive (NonReactive) 12/23/20 11:38 Hep Bs Antigen Non-reactive (Negative) 12/23/20 11:38 Hep B Core IgM Ab Non-reactive (NonReactive) 12/23/20 11:38 Hepatitis C Antibody Non-reactive (NonReactive) 12/23/20 11:38 Blood Type A POSITIVE 01/06/21 07:10 Antibody Screen Negative 01/06/21 07:10 Crossmatch See Detail 01/06/21 07:10 Jeffery/IV: Voiding Method Incontinent Active Medications - Current Medications Current Medications: Generic Name Dose Route Start Last Admin Trade Name Freq PRN Reason Stop Dose Admin Acetaminophen 650 mg 12/31/20 15:30 12/31/20 15:13 Acetaminophen 650 Mg Rect Supp OH 650 mg Q6H PRN Administration Non Cardiac Pain or Temp>100.5 Clonidine HCl 0.1 mg 01/15/21 11:00 Clonidine Tts 0.1 Mg/24 Hr Patch TD Iqbal THOMAS Digoxin 0.125 mg 01/09/21 12:00 01/09/21 11:39 Digoxin 0.5 Mg/2 Ml Inj IV 0.125 mg Q48H THOMAS Administration Diphenhydramine HCl 25 mg 01/08/21 18:23 01/10/21 09:22 Diphenhydramine 50 Mg/Ml Vial IV 25 mg BID THOMAS Administration Enalaprilat 1.25 mg 01/08/21 17:00 01/10/21 08:20 Enalaprilat 2.5 Mg/2 Ml Inj IV 01/11/21 16:59 1.25 mg Q8H THOMAS Administration Famotidine 10 mg 12/24/20 13:00 01/10/21 09:22 Famotidine 20 Mg/2 Ml Inj IV 10 mg BID THOMAS Administration Glycopyrrolate 0.2 mg 01/09/21 15:00 01/10/21 08:27 Glycopyrrolate 0.4 Mg/2 Ml Inj IV 01/12/21 14:59 0.2 mg Q8H THOMAS Administration Haloperidol Lactate 5 mg 12/29/20 14:16 01/09/21 01:41 Haloperidol Lactate 5 Mg/1 Ml Inj IV 5 mg Q12H PRN Administration Agitation Heparin Sodium (Porcine) 5,000 unit 12/24/20 10:00 01/10/21 09:23 Heparin 5,000 Unit/1 Ml Vial SUB-Q 5,000 unit Q12HR THOMAS Administration Hydralazine HCl 10 mg 01/10/21 14:00 Hydralazine 20 Mg/1 Ml Inj IV Q4HR [facility] Hydromorphone HCl 0.25 mg 01/09/21 10:53 01/09/21 17:21 Hydromorphone 1 Mg/1 Ml Inj IV 0.25 mg Q6H PRN Administration Pain , Severe (7-10) Hydrophilic Ointment 1 applic 12/31/20 06:39 Lip Therapy Vaseline TP Q2HR PRN Dry Lips Sodium Chloride 100 mls @ 999 mls/hr 12/23/20 11:03 Nacl 0.9% IV [place] PRN Hypotension Amino Acids/Electrolytes/Dextrose 2,016 mls @ 84 mls/hr 01/09/21 20:00 01/09/21 21:01 Tpn Adult IV 01/10/21 19:59 84 mls/hr DAILY@1999 [facility] Administration Protocol Amino Acids/Electrolytes/Dextrose 2,016 mls @ 84 mls/hr 01/10/21 20:00 Tpn Adult IV 01/11/21 19:59 DAILY@1999 [facility] Protocol Insulin Glargine 10 units 01/03/21 10:00 01/10/21 09:24 Insulin Glargine 100 Units/Ml SUB-Q 10 units DAILY THOMAS Administration Insulin Human Lispro 0 unit 01/03/21 12:00 01/10/21 12:15 Insulin Lispro 100 Unit/Ml SUB-Q 3 unit Q6HR [facility] Administration Protocol Methylprednisolone Sodium Succinate 40 mg 01/08/21 18:23 01/10/21 09:23 Methylprednisolone Sod Succinate 40 Mg/1 Ml Inj IV 40 mg Q8H [facility] Administration Metoprolol Tartrate 5 mg 12/30/20 12:00 01/10/21 13:51 Metoprolol Tartrate 5 Mg/5 Ml Inj IV 5 mg Q4HR [facility] Administration Multi-Ingred Cream/Lotion/Oil/Oint 1 applic 12/31/20 06:39 Mineral Oil/Petrolatum, White Ophth Oint 3.5 Gm OU Q4HR PRN Dry Eye(s) Scopolamine 1 each 01/15/21 11:00 Scopolamine Transdermal Patch 72 Hr TD Q3D [facility] Sodium Chloride 10 ml 12/22/20 22:00 01/10/21 11:33 Sodium Chloride 0.9% 10 Ml Flush Syringe IV 10 ml BID THOMAS Administration Sodium Chloride 10 ml 12/22/20 19:42 01/09/21 17:27 Sodium Chloride 0.9% 10 Ml Flush Syringe IV 10 ml PRN PRN Administration LINE FLUSH Nutrition/Malnutrition Assess - Dietary Evaluation Nutrition/Malnutrition Findings: Nutrition Notes Start: 12/24/20 12:36 Freq: Status: Active Protocol: Document 01/10/21 09:27 KAY (Rec: 01/10/21 09:39 KAY [id number]) Co-Sign 01/10/21 09:27 JUAN Nutrition Notes Initial or Follow up Reassessment Current Diagnosis CKD (stage V CKD),Sepsis, Hypertension,Heart Failure Other Pertinent Diagnosis Peritonitis, SBO s/p resection Current Diet TPN at 84 ml/hr Labs/Tests Na 135 K 3.5 Cl 95 CO2 21 BUN 93 Cr 8.3 Pertinent Medications Humalog Lantus Solumedrol Height 5 ft 7 in Weight 94.8 kg [place] Body Weight (kg) 67.27 BMI 32.7 Weight Status Obese Subjective/Other Information TPN Day 16. Pt remains extubated, decreasing estimated protein needs. Plan to decrease protein given in TPN. Per chart, pt had dialysis yesterday and remains on NGT suction. Percent of energy/protein needs met: 100%/100% Burn Absent Trauma Absent Current % PO Negligible Minimum of two criteria No #1 Nutrition Diagnosis Inadequate oral intake Diagnosis Progress(for reassessment Continues documentation) Is patient on ventilator? No Is Patient Ambulatory and/or Out of Bed No REE-([facility]-confined to bed) 2051.768 Kcal/Kg value to use for calculation 17 Approximate Energy Requirements Using 1612 kcal/Kg Calculation Used for Recommendations Kcal/kg Additional Notes Pro needs: >97 g/day (>1.2 g/ kg AdjBW, 81kg) Fluid needs per MD. Nutrition Intervention Change Diet Order: Continue CPN Nutrition Support: Continue CPN at 84 ml/hr. ELMER MTJose Angel. Osmolality: 1662 Kcal 1,730 Protein (gm) 135 Carbohydrates (gm) 350 Fat (gm) 0 Fluid (mL) 2,016 Goal #1 Meet at least 75% of estimated energy and protein needs via CPN Anticipated Discharge Needs: unable to determine at this time Follow-Up By: 01/11/21 Additional Comments Labs in AM: BMP, Mag, Phos, TG
[2021-01-10] MEDS ORDERED: TOTAL PARENTERAL NUTRITION 2,016 ML IV SCH (20:00)
[2021-01-11] MEDS: INSULIN LISPRO 100 UNIT/ML SUB-Q SCH ×5 (00:48→23:15)
[2021-01-11] MEDS: METOPROLOL TARTRATE 5 MG/5 ML INJ IV SCH ×6 (02:10→21:31)
[2021-01-11] MEDS: ENALAPRILAT 2.5 MG/2 ML INJ IV SCH ×3 (02:10→17:41)
[2021-01-11] MEDS: methylPREDNISolone Sod Succinate 40 MG/1 ML INJ IV SCH ×2 (02:11→09:24)
[2021-01-11] MEDS: HYDROmorphone 1 MG/1 ML INJ IV PRN (02:11)
[2021-01-11] MEDS: hydrALAZINE 20 MG/1 ML INJ IV SCH ×7 (02:11→21:29)
[2021-01-11 05:32] LABS: Hematocrit 29.7 % (35.5-45.6); Hemoglobin 10.2 gm/dl (11.8-15.2); Mean Corpuscular HGB Conc 34 % (32-34); Mean Corpuscular Volume 89 fl (84-94); Platelet Count 407 K/mm3 (140-440); Red Blood Count 3.34 M/mm3 (3.65-5.03); Red Cell Distribution Width 15.9 % (13.2-15.2)
[2021-01-11 05:59] LABS: Calcium 9.3 mg/dL (8.4-10.2)
[2021-01-11] MEDS: GLYCOPYRROLATE 0.4 MG/2 ML INJ IV SCH ×3 (06:30→17:44)
[2021-01-11] MEDS: HEPARIN 5,000 UNIT/1 ML VIAL SUB-Q SCH ×2 (09:04→21:31)
[2021-01-11] MEDS: FAMOTIDINE 20 MG/2 ML INJ IV SCH ×2 (09:05→21:33)
[2021-01-11] MEDS: diphenhydrAMINE 50 MG/ML VIAL IV SCH ×2 (09:05→21:30)
[2021-01-11] MEDS: INSULIN GLARGINE 100 UNITS/ML SUB-Q SCH (09:08)
--- NOTE | 2021-01-11 09:23 | Progress Note ---
Assessment and Plan Assessment: * ESRD previouaslyon peritoneal dialysis; now on back up HD (on peritoneal dialysis for 2 years with no history of peritonitis) * Small bowel obstruction --s/p ex-lap with jejuno-ileal anastamosis --s/p ex lap with extensive lysis of adhesions and two small bowel resections with primary anastamosis for SBO with necrotic segment small bowel. --s/p ex lap, resection of perforated anastamosis, washout and abthera wound vac placement. --s/p ex lap with right hemicolectomy. * Acute respiratory failure * Septic shock - resolved * Bacteremia - resolved * Hyperkalemia * Anemia of ESRD * Atrial fibrilation, new onset * Post op ileus Plan: * Continue HD MWF via left IJ permcath (12/27) * UF as tolerated * Will require outpatient hd placement once stable * Rate control per cardiology * Abx per primary team/ID * Maintatin MAP >65 * AM labs Subjective Date of service: 01/11/21 Principal diagnosis: Ac hypoxemic resp failure; Severe Sepsis; Peritonitis; Acute SBO; ESRD; CHF Interval history: Patient seen during HD treatment. Objective - Vital Signs Vital signs: Vital Signs - 12hr 01/10/21 01/10/21 01/10/21 21:59 22:00 22:33 Temperature Pulse Rate 81 77 77 Respiratory 14 16 Rate Blood Pressure 168/78 161/76 161/76 O2 Sat by Pulse Oximetry 01/10/21 01/11/21 01/11/21 22:34 00:00 00:01 Temperature 98.1 F Pulse Rate 77 87 89 Respiratory 17 Rate Blood Pressure 161/76 160/76 O2 Sat by Pulse 95 Oximetry 01/11/21 01/11/21 01/11/21 02:00 02:10 02:11 Temperature Pulse Rate 87 80 80 Respiratory 24 16 Rate Blood Pressure 175/83 175/83 175/83 O2 Sat by Pulse 96 Oximetry 01/11/21 01/11/21 01/11/21 03:34 04:01 04:37 Temperature 99.0 F Pulse Rate 75 Respiratory Rate Blood Pressure 175/83 O2 Sat by Pulse 95 Oximetry 01/11/21 01/11/21 01/11/21 06:01 06:07 06:08 Temperature Pulse Rate 75 81 79 Respiratory 18 Rate Blood Pressure 187/82 187/82 187/82 O2 Sat by Pulse 96 Oximetry 01/11/21 01/11/21 01/11/21 07:26 07:49 08:00 Temperature 98.6 F 98.0 F Pulse Rate 83 83 Respiratory 15 Rate Blood Pressure 178/85 O2 Sat by Pulse 98 Oximetry 01/11/21 01/11/21 01/11/21 08:50 09:03 09:04 Temperature Pulse Rate 75 77 Respiratory Rate Blood Pressure 177/85 177/85 O2 Sat by Pulse 98 Oximetry - General Appearance General appearance: well-developed, well-nourished EENT: ATNC Respiratory: Present: Clear to Ascultation Cardiology: regular, S1S2 Integumentary: no rash, warm and dry Musculoskeletal: other (no edema) - Lab 01/11/21 05:18 01/11/21 05:18 Most recent lab results ABG pH 7.345 pH Units (7.350-7.450) L 01/07/21 17:14 ABG pCO2 40.3 mm Hg 01/07/21 17:14 ABG pO2 67.4 mm Hg (80.0-90.0) L 01/07/21 17:14 ABG HCO3 21.5 mmol/L (20.0-26.0) 01/07/21 17:14 ABG O2 Saturation 94.3 % (95.0-99.0) L 01/07/21 17:14 Calcium 9.3 mg/dL (8.4-10.2) 01/11/21 05:18 Phosphorus 6.00 mg/dL (2.5-4.5) H D 01/11/21 05:18 Magnesium 2.00 mg/dL (1.7-2.3) 01/11/21 05:18 Medications & Allergies - Medications Allergies/Adverse Reactions: Allergies No Known Allergies Allergy (Verified 06/09/20 15:27) Home Medications: Home Medications Medication Instructions Recorded Confirmed Last Taken Type Albuterol Mdi (or & Nicu Only) 2 puff IH QID PRN #1 inhalation 04/01/17 11/01/20 10/31/20 09:00 Rx [ProAir HFA Inhaler] Calcium Acetate 667 mg PO DAILY 04/20/20 11/01/20 10/31/20 09:00 History Centrum Men's Tablet 1 tab PO DAILY 04/20/20 11/01/20 10/31/20 09:00 History Cinacalcet 30 mg PO DAILY 04/20/20 11/01/20 10/31/20 09:00 History Dialyvite with Zinc Tablet 1 tab PO DAILY 04/20/20 11/01/20 10/31/20 09:00 History Magnesium 250 mg PO BID 04/20/20 11/01/20 10/31/20 17:00 History Triamcinolone 0.1% 1 1000units TRANSDERMA DAILY 04/20/20 11/01/20 10/31/20 09:00 History Vit B12/Folic Acid/B6/Aa No.15 1,000 mg PO DAILY 04/20/20 11/01/20 10/31/20 09:00 History amLODIPine 10 mg PO DAILY 06/09/20 11/01/20 10/31/20 09:00 History AtorvaSTATin 40 mg PO HS 11/01/20 11/01/20 10/31/20 21:00 History Benadryl 25 mg PO HS 11/01/20 11/01/20 10/31/20 21:00 History Diclofenac 1 TRANSDERMA QID 11/01/20 10/31/20 19:00 History Fluticasone Propionate 1 spray INTRANASAL DAILY 11/01/20 11/01/20 10/31/20 09:00 History Vitamin D3 2,000 units 11/01/20 10/31/20 09:00 History carvediloL 12.5 mg PO DAILY 11/01/20 11/01/20 10/31/20 09:00 History hydrALAZINE 100 mg PO TID 11/01/20 11/01/20 10/31/20 19:00 History Active Medications: Generic Name Dose Route Start Last Admin Trade Name Freq PRN Reason Stop Dose Admin Acetaminophen 650 mg 12/31/20 15:30 12/31/20 15:13 Acetaminophen 650 Mg Rect Supp AR 650 mg Q6H PRN Administration Non Cardiac Pain or Temp>100.5 Clonidine HCl 0.2 mg 01/11/21 10:00 Clonidine Tts 0.2 Mg/24 Hr Patch TD We THOMAS Digoxin 0.125 mg 01/09/21 12:00 01/09/21 11:39 Digoxin 0.5 Mg/2 Ml Inj IV 0.125 mg Q48H THOMAS Administration Diphenhydramine HCl 25 mg 01/08/21 18:23 01/11/21 09:05 Diphenhydramine 50 Mg/Ml Vial IV 25 mg BID THOMAS Administration Enalaprilat 1.25 mg 01/08/21 17:00 01/11/21 09:04 Enalaprilat 2.5 Mg/2 Ml Inj IV 01/11/21 16:59 Not Given Q8H THOMAS Famotidine 10 mg 12/24/20 13:00 01/11/21 09:05 Famotidine 20 Mg/2 Ml Inj IV 10 mg BID THOMAS Administration Glycopyrrolate 0.2 mg 01/09/21 15:00 01/11/21 06:30 Glycopyrrolate 0.4 Mg/2 Ml Inj IV 01/12/21 14:59 0.2 mg Q8H THOMAS Administration Haloperidol Lactate 5 mg 12/29/20 14:16 01/09/21 01:41 Haloperidol Lactate 5 Mg/1 Ml Inj IV 5 mg Q12H PRN Administration Agitation Heparin Sodium (Porcine) 5,000 unit 12/24/20 10:00 01/11/21 09:04 Heparin 5,000 Unit/1 Ml Vial SUB-Q 5,000 unit Q12HR [facility] Administration Hydralazine HCl 10 mg 01/10/21 14:00 01/11/21 09:07 Hydralazine 20 Mg/1 Ml Inj IV Not Given Q4HR [facility] Hydromorphone HCl 0.25 mg 01/09/21 10:53 01/11/21 02:11 Hydromorphone 1 Mg/1 Ml Inj IV 0.25 mg Q6H PRN Administration Pain , Severe (7-10) Hydrophilic Ointment 1 applic 12/31/20 06:39 Lip Therapy Vaseline TP Q2HR PRN Dry Lips Sodium Chloride 100 mls @ 999 mls/hr 12/23/20 11:03 Nacl 0.9% IV [place] PRN Hypotension Amino Acids/Electrolytes/Dextrose 2,016 mls @ 84 mls/hr 01/10/21 20:00 01/10/21 20:15 Tpn Adult IV 01/11/21 19:59 84 mls/hr DAILY@2000 THOMAS Administration Protocol Insulin Glargine 10 units 01/03/21 10:00 01/11/21 09:08 Insulin Glargine 100 Units/Ml SUB-Q 10 units DAILY THOMAS Administration Insulin Human Lispro 0 unit 01/03/21 12:00 01/11/21 07:13 Insulin Lispro 100 Unit/Ml SUB-Q Not Given Q6HR [facility] Protocol Methylprednisolone Sodium Succinate 40 mg 01/08/21 18:23 01/11/21 02:11 Methylprednisolone Sod Succinate 40 Mg/1 Ml Inj IV 40 mg Q8H [facility]OMAS Administration Metoprolol Tartrate 5 mg 12/30/20 12:00 01/11/21 09:03 Metoprolol Tartrate 5 Mg/5 Ml Inj IV Not Given Q4HR [facility] Multi-Ingred Cream/Lotion/Oil/Oint 1 applic 12/31/20 06:39 Mineral Oil/Petrolatum, White Ophth Oint 3.5 Gm OU Q4HR PRN Dry Eye(s) Scopolamine 1 each 01/15/21 11:00 Scopolamine Transdermal Patch 72 Hr TD Q3D THOMAS Sodium Chloride 10 ml 12/22/20 22:00 01/11/21 09:13 Sodium Chloride 0.9% 10 Ml Flush Syringe IV 10 ml BID THOMAS Administration Sodium Chloride 10 ml 12/22/20 19:42 01/09/21 17:27 Sodium Chloride 0.9% 10 Ml Flush Syringe IV 10 ml PRN PRN Administration LINE FLUSH
[2021-01-11] MEDS: cloNIDine TTS 0.2 MG/24 HR PATCH TD SCH (09:24)
--- NOTE | 2021-01-11 11:51 | Progress Note ---
Assessment and Plan POD#18 s/p ex lap with extensive lysis of adhesions and two small bowel resections with primary anastamosis for SBO with necrotic segment small bowel. POD#9 s/p ex lap, resection of perforated anastamosis, washout and abthera wound vac placement. POD#7 s/p ex lap with right hemicolectomy. POd#5 s/p ex lap, with jejunal-colonic anastamosis and closure of abdomen. Afebrile and stable. - post op ileus. Continue TPN - await return of bowel function. Continue NGT decompression. wound vac changes per wound care team. Hypertension better controlled. . Subjective Date of service: 01/11/21 Narrative: Pt is drowsy but arousable. He denies pain. no acute events overnight. PT had a bowel movement. Objective Vital Signs - 12hr 01/11/21 01/11/21 01/11/21 00:00 00:01 02:00 Temperature 98.1 F Pulse Rate 87 89 87 Respiratory 17 24 Rate Blood Pressure 160/76 175/83 O2 Sat by Pulse 95 96 Oximetry O2 Sat by Pulse Oximetry [ Anterior Bilateral Throughout] 01/11/21 01/11/21 01/11/21 02:10 02:11 03:34 Temperature 99.0 F Pulse Rate 80 80 Respiratory 16 Rate Blood Pressure 175/83 175/83 O2 Sat by Pulse Oximetry O2 Sat by Pulse Oximetry [ Anterior Bilateral Throughout] 01/11/21 01/11/21 01/11/21 04:01 04:37 06:01 Temperature Pulse Rate 75 75 Respiratory 18 Rate Blood Pressure 175/83 187/82 O2 Sat by Pulse 95 96 Oximetry O2 Sat by Pulse Oximetry [ Anterior Bilateral Throughout] 01/11/21 01/11/21 01/11/21 06:07 06:08 07:26 Temperature 98.6 F Pulse Rate 81 79 Respiratory Rate Blood Pressure 187/82 187/82 O2 Sat by Pulse Oximetry O2 Sat by Pulse Oximetry [ Anterior Bilateral Throughout] 01/11/21 01/11/21 01/11/21 07:49 08:00 08:50 Temperature 98.0 F Pulse Rate 83 83 Respiratory 15 Rate Blood Pressure 178/85 O2 Sat by Pulse 98 98 Oximetry O2 Sat by Pulse Oximetry [ Anterior Bilateral Throughout] 01/11/21 01/11/21 01/11/21 09:03 09:04 09:18 Temperature 97.9 F Pulse Rate 75 77 78 Respiratory 16 Rate Blood Pressure 177/85 177/85 178/89 O2 Sat by Pulse Oximetry O2 Sat by Pulse 97 Oximetry [ Anterior Bilateral Throughout] 01/11/21 01/11/21 01/11/21 09:22 09:24 09:30 Temperature Pulse Rate 75 80 75 Respiratory Rate Blood Pressure 180/89 180/89 180/89 O2 Sat by Pulse Oximetry O2 Sat by Pulse Oximetry [ Anterior Bilateral Throughout] 01/11/21 01/11/21 01/11/21 09:45 10:00 10:01 Temperature Pulse Rate 77 77 83 Respiratory 14 Rate Blood Pressure 178/87 177/77 177/77 O2 Sat by Pulse 97 Oximetry O2 Sat by Pulse Oximetry [ Anterior Bilateral Throughout] 01/11/21 01/11/21 01/11/21 10:15 10:30 10:45 Temperature Pulse Rate 82 80 81 Respiratory Rate Blood Pressure 182/89 170/78 164/77 O2 Sat by Pulse Oximetry O2 Sat by Pulse Oximetry [ Anterior Bilateral Throughout] 01/11/21 01/11/21 01/11/21 11:00 11:15 11:30 Temperature Pulse Rate 80 80 85 Respiratory Rate Blood Pressure 146/99 160/77 164/71 O2 Sat by Pulse Oximetry O2 Sat by Pulse Oximetry [ Anterior Bilateral Throughout] - General physical appearance no distress, no pain - Respiratory normal expansion, normal respiratory effort - Abdomen soft, not tender, other (HARIS drain SS, NGT light bilious, wound vac in place with SS drainage) - Labs 01/11/21 05:18 01/11/21 05:18 Diabetes panel 01/11/21 Range/Units 05:18 Sodium 136 L (137-145) mmol/L Potassium 3.9 (3.6-5.0) mmol/L Chloride 94.6 L (98-107) mmol/L Carbon Dioxide 19 L (22-30) mmol/L BUN 145 H (9-20) mg/dL Creatinine 10.6 H (0.8-1.3) mg/dL Glucose 152 H (75-100) mg/dL Calcium 9.3 (8.4-10.2) mg/dL Triglycerides 77 (2-149) mg/dL Calcium panel 01/11/21 Range/Units 05:18 Calcium 9.3 (8.4-10.2) mg/dL Phosphorus 6.00 H D (2.5-4.5) mg/dL Pituitary panel 01/11/21 Range/Units 05:18 Sodium 136 L (137-145) mmol/L Potassium 3.9 (3.6-5.0) mmol/L Chloride 94.6 L (98-107) mmol/L Carbon Dioxide 19 L (22-30) mmol/L BUN 145 H (9-20) mg/dL Creatinine 10.6 H (0.8-1.3) mg/dL Glucose 152 H (75-100) mg/dL Calcium 9.3 (8.4-10.2) mg/dL Adrenal panel 01/11/21 Range/Units 05:18 Sodium 136 L (137-145) mmol/L Potassium 3.9 (3.6-5.0) mmol/L Chloride 94.6 L (98-107) mmol/L Carbon Dioxide 19 L (22-30) mmol/L BUN 145 H (9-20) mg/dL Creatinine 10.6 H (0.8-1.3) mg/dL Glucose 152 H (75-100) mg/dL Calcium 9.3 (8.4-10.2) mg/dL
--- NOTE | 2021-01-11 11:51 | Progress Note ---
Assessment and Plan New onset atrial fibrillation currently, he is sinus rhythm on telemetry Hx of nonischemic cardiomyopathy, resolving LVEF 50-55% by echo this presentation Small bowl obstruction status post emergency exploratory laparotomy for anastomotic leak status post exploratory laparotomy s/p ex lap, resection of perforated anastamosis, washout and abthera wound vac placement ESRD now on HD Anemia s/p PRBCs Continue intravenous digoxin, and intravenous metoprolol for paroxysmal atrial fibrillation. Patient is not a candidate for anticoagulation at this time due to his postoperative status and the presence of severe anemia. Conservative cardiac management. Subjective Date of service: 01/11/21 Principal diagnosis: Ac hypoxemic resp failure; Severe Sepsis; Peritonitis; Acute SBO; ESRD; CHF Interval history: Undergoing hemodialysis. Stable sinus rhythm on telemetry. Labs shows a Digoxin level at 0.8. Objective Vital Signs Temp Pulse Pulse Resp BP Pulse Ox Pulse Ox 01/11/21 11:30 85 164/71 01/11/21 11:15 80 160/77 01/11/21 11:00 80 146/99 01/11/21 10:45 81 164/77 01/11/21 10:30 80 170/78 01/11/21 10:15 82 182/89 01/11/21 10:01 83 14 177/77 97 01/11/21 10:00 77 177/77 01/11/21 09:45 77 178/87 01/11/21 09:30 75 180/89 01/11/21 09:24 80 180/89 01/11/21 09:22 75 180/89 01/11/21 09:18 97.9 F 78 16 178/89 97 01/11/21 09:04 77 177/85 01/11/21 09:03 75 177/85 01/11/21 08:50 98 01/11/21 08:00 98.0 F 83 15 178/85 98 01/11/21 07:49 83 01/11/21 07:26 98.6 F 01/11/21 06:08 79 187/82 01/11/21 06:07 81 187/82 01/11/21 06:01 75 18 187/82 96 01/11/21 04:37 75 01/11/21 04:01 175/83 95 01/11/21 03:34 99.0 F 01/11/21 02:11 80 16 175/83 01/11/21 02:10 80 175/83 01/11/21 02:00 87 24 175/83 96 01/11/21 00:01 89 17 160/76 95 01/11/21 00:00 98.1 F 87 01/10/21 22:34 77 161/76 01/10/21 22:33 77 161/76 01/10/21 22:00 77 16 161/76 01/10/21 21:59 81 14 168/78 01/10/21 20:30 76 16 169/81 01/10/21 20:00 98.0 F 76 13 163/79 01/10/21 19:30 73 20 167/81 01/10/21 19:00 73 19 156/110 01/10/21 18:30 76 22 169/74 01/10/21 18:00 74 19 160/76 95 01/10/21 17:44 88 177/80 01/10/21 17:42 75 177/80 01/10/21 17:31 177/80 98 01/10/21 17:00 81 21 169/76 99 01/10/21 16:30 93 H 27 H 156/74 95 01/10/21 16:00 98.4 F 79 92 H 21 161/72 96 01/10/21 15:30 82 21 151/74 96 01/10/21 15:01 86 21 150/75 01/10/21 14:30 88 13 161/71 01/10/21 14:00 83 16 147/67 96 01/10/21 13:51 89 167/69 01/10/21 13:30 91 H 23 167/69 97 01/10/21 13:00 84 15 133/61 97 01/10/21 12:30 89 40 H 157/71 97 01/10/21 12:00 98.5 F 88 91 H 17 155/80 96 - Physical Examination General: No Apparent Distress Cardiac: Positive: Reg Rate and Rhythm Abdomen: Positive: Other (post op) - Labs and Meds Lipids 01/11/21 Range/Units 05:18 Triglycerides 77 (2-149) mg/dL CBC 01/11/21 Range/Units 05:18 WBC 17.4 H (4.5-11.0) K/mm3 RBC 3.34 L (3.65-5.03) M/mm3 Hgb 10.2 L (11.8-15.2) gm/dl Hct 29.7 L (35.5-45.6) % Plt Count 407 (140-440) K/mm3 Comprehensive Metabolic Panel 01/11/21 Range/Units 05:18 Sodium 136 L (137-145) mmol/L Potassium 3.9 (3.6-5.0) mmol/L Chloride 94.6 L (98-107) mmol/L Carbon Dioxide 19 L (22-30) mmol/L BUN 145 H (9-20) mg/dL Creatinine 10.6 H (0.8-1.3) mg/dL Glucose 152 H (75-100) mg/dL Calcium 9.3 (8.4-10.2) mg/dL - Allied health notes Allied health notes reviewed: nursing
[2021-01-11] MEDS: DIGOXIN 0.5 MG/2 ML INJ IV SCH (11:59)
--- NOTE | 2021-01-11 14:25 | Progress Note ---
Assessment and Plan Assessment and plan: This is a 60-year-old male with ESRD on peritoneal dialysis, Crohn's, hypertension, systolic CHF (EF 35%) who was admitted with sepsis, peritonitis, small bowel obstruction and treptococcus bovis bacteremia/Prevotella bacteremia Severe Sepsis with shock Streptococcus bovis bacteremia/Prevotella bacteremia Gwendolyn albicans tracheal aspirate Small bowel obstruction/necrotic bowel s/p ex lap with extensive lysis of adhesions, 2 small bowel resections with primary anastomosis, right hemicolectomy, jejunal colonic anastomosis, segmental small bowel resection Acute hypoxic respiratory failure Postoperative ileus Atrial fibrillation with RVR Leukocytosis Hyponatremia Hypochloremia Metabolic acidosis Gwendolyn albicans in tracheal aspirate from 12/24 ESRD on PD, PermCath to be placed Transaminitis Systolic CHF(EF 35%) Crohn's disease Hypertension -[facility], surgery, infectious disease, nephrology, vascular surgery, cardiology consulted, appreciate recommendations -12/24 S/p ex lap with extensive expectations, 2 small bowel resections with primary anastomosis with surgery on 12/23 -s/p PICC and Permacath placement with vascular surgery on 12/27 -Extubated on 12/28, reintubated 12/31 for respiratory distress and extubated 01/08 -12/29 echocardiogram shows moderate concentric LVH, small pericardial effusion, transmitral Doppler flow pattern is grade 1 abnormal relaxation pattern, left- ventricular systolic function normal, LVEF 50 to 55%, no wall motion abnormalities. -01/01 CT abdomen/pelvis shows small pericardial effusion, mild coronary artery atherosclerotic calcification, small bilateral pleural effusions with associated volume loss, no convincing evidence of bowel obstruction or inflammation, postoperative changes from interval/recent midline laparotomy with a moderate amount of free fluid throughout the abdomen, small amount of dependent free air presumably postoperative -01/02 s/p ex lap, resection of perforated anastamosis, washout and abthera wound vac placement. -01/04 s/p ex lap with right hemicolectomy. -01/06 s/p exploratory laparotomy, Jejunal colonic anastomosis, Segmental small bowel resection. -s/p Vasopressor support with Levophed and vasopressin -Transitioned to HD from PD -HD per nephro -NPO -TPN -NGT to LIS -s/p IV antibiotics -Tobacco abuse cessation counseling -Trend CBC, BMP DVT/GI prophylaxis: PPI, heparin subcu, SCDs to bilateral lower extremities while in bed Disposition: IMCU Critical care statement The high probability of a clinically significant, sudden or life threatening deterioration of the [pulmonary, cardiac, neuro, renal] system(s) required my full and direct attention, intervention and personal management. The aggregate critical care time was [35] minutes. This time is in addition to time spent performing reported procedures but includes the following: [x] Data Review and interpretation [x] Patient assessment and monitoring of vital signs [x] Documentation [x] Medication orders and management History Interval history: This is a 60 YO Male with ESRD on PD, GERD, Crohn's Disease, Nicotine Dependence, HTN, Systolic CHF(EF 35%) who presented to the emergency department on 12/22 with complaints of abdominal pain which began shortly after eating fast food rated 10/10 which is periumbilical, constant, associated with fever, nausea and multiple sites of vomiting and self-reported inability to undergo PD. In the emergency room patient underwent a CT scan of the abdomen/pelvis which revealed evidence of partial small bowel obstruction, symptoms were consistent with bacterial peritonitis. Patient was admitted to the hospital service with sepsis, peritonitis, and small bowel obstruction with consults to general surgery, nephrology, infectious disease and [facility]. 12/23. Patient had temperature 101.2 F, tachycardia and elevated lactic acid on admission. Meet sepsis criteria. Started on IV antibiotics. ID has been consulted. Surgery consulted this a.m.-advised laparoscopy. He remains on NG tube connected to suction. 12/24. Patient was noted to have peritonitis yesterday and patient undergoing exploratory laparotomy. Patient remained intubated after procedure and is in ICU. Now on broad-spectrum antibiotics. ID on board. 12/25. Remains mechanically ventilated and sedated. Temp 103 Fahrenheit. Antibiotics broadened-ID added fluconazole and Flagyl. Blood cultures ordered. Plan to repeat CT abdomen tomorrow if not better. Surgery following. 12/26: Patient remains on mechanical ventilation on CMV tidal line 550, rate of 14, PEEP of 8 and 30% FiO2 and sedated on fentanyl 4 micrograms. Today we will remove his Jeffery and CCM dropped his rate controlled him on CPAP. We will trend CBC given recent drop in H/H. 12/27: Patient remains intubated on CMV tidal volume 550, rate 12, PEEP 8 on 30% FiO2 at the time my examination. Patient's TPN will be changed to PPN. Patient's fentanyl drip will be changed to IV push fentanyl and have a permacath placed today and midline. Patient was placed on a spontaneous breathing trial was switched back to CMV prior to procedure. 12/28: Patient on fentanyl but awake and follows commands. At the time of my examination he was on a CPAP trial and is scheduled to receive HD today. s/o permacath and PICC placement with vascular yesterday. His blood culture grew Prevotella and addition to Streptococcus bovis. This evening Dr. Spicer attempted to extubate the patient and his heart rate went to the 180s. Stat EKG obtained and cardiology consulted. 12/29: Patient was started on amiodarone IV for A. fib RVR yesterday and today he is more rate controlled into the 70s and 80s. Patient was extubated yesterday and is currently on Ventimask. Patient will be transferred to [facility]. Patient continues to be n.p.o. with TPN and NG tube to LIS. He is hypokalemic today which was repleted. 12/30; patient was on IV amiodarone for treatment with RVR, rate is controlled. Patient was off oxygen. patient is n.p.o. and on TPN. Surgery is following the patient. 12/31: Patient was intubated overnight for respiratory distress and this morning on examination he was on assist control tidal volume 450, rate 20, PEEP 6, 100% FiO2 and RT was getting a ABG to adjust vent settings. Patient had a acute bump in WBC and per ID recommendations we will obtain a CT abdomen/pelvis if leukocytosis persist. Patient is on TPN and sedated with Levophed. Patient is also on vasopressor support with Levophed. Per surgery his ileus is resolving however will maintain OGT to LIWS. 01/01: Patient was started on a vasopressin yesterday late evening. This morning patient is on 20 mcg of Levophed and 0.03 vasopressin and sedated on 20 mcg of propofol. Patient WBC increased today and he is hypokalemic. We will treat hyperkalemia. Patient had a CT chest and abdomen/pelvis pending. The time examination total of 450, rate 20, PEEP of 6 and 35 percent FiO2. Per RN, Dr Pollock has stated that the patient will be returning to the OR today for likely anastomosis seen on CT abdomen/pelvis. This is a 60 YO Male with ESRD on PD, GERD, Crohn's Disease, Nicotine Dependence, HTN, Systolic CHF(EF 35%) who presented to the emergency department on 12/22 with complaints of abdominal pain which began shortly after eating fast food rated 10/10 which is periumbilical, constant, associated with fever, nausea and multiple sites of vomiting and self-reported inability to undergo PD. In the emergency room patient underwent a CT scan of the abdomen/pelvis which revealed evidence of partial small bowel obstruction, symptoms were consistent with bacterial peritonitis. Patient was admitted to the hospital service with sepsis, peritonitis, and small bowel obstruction with consults to general surgery, nephrology, infectious disease and [facility]. 12/23. Patient had temperature 101.2 F, tachycardia and elevated lactic acid on admission. Meet sepsis criteria. Started on IV antibiotics. ID has been consulted. Surgery consulted this a.m.-advised laparoscopy. He remains on NG tube connected to suction. 12/24. Patient was noted to have peritonitis yesterday and patient undergoing exploratory laparotomy. Patient remained intubated after procedure and is in ICU. Now on broad-spectrum antibiotics. ID on board. 12/25. Remains mechanically ventilated and sedated. Temp 103 Fahrenheit. Antibiotics broadened-ID added fluconazole and Flagyl. Blood cultures ordered. Plan to repeat CT abdomen tomorrow if not better. Surgery following. 12/26: Patient remains on mechanical ventilation on CMV tidal line 550, rate of 14, PEEP of 8 and 30% FiO2 and sedated on fentanyl 4 micrograms. Today we will remove his Jeffery and CCM dropped his rate controlled him on CPAP. We will trend CBC given recent drop in H/H. 12/27: Patient remains intubated on CMV tidal volume 550, rate 12, PEEP 8 on 30% FiO2 at the time my examination. Patient's TPN will be changed to PPN. Patient's fentanyl drip will be changed to IV push fentanyl and have a permacath placed today and midline. Patient was placed on a spontaneous breathing trial was switched back to CMV prior to procedure. 12/28: Patient on fentanyl but awake and follows commands. At the time of my examination he was on a CPAP trial and is scheduled to receive HD today. s/o permacath and PICC placement with vascular yesterday. His blood culture grew Prevotella and addition to Streptococcus bovis. This evening Dr. Spicer attempted to extubate the patient and his heart rate went to the 180s. Stat EKG obtained and cardiology consulted. 12/29: Patient was started on amiodarone IV for A. fib RVR yesterday and today he is more rate controlled into the 70s and 80s. Patient was extubated yesterday and is currently on Ventimask. Patient will be transferred to [facility]. Patient continues to be n.p.o. with TPN and NG tube to LIS. He is hypokalemic today which was repleted. 12/30; patient was on IV amiodarone for treatment with RVR, rate is controlled. Patient was off oxygen. patient is n.p.o. and on TPN. Surgery is following the patient. 12/31: Patient was intubated overnight for respiratory distress and this morning on examination he was on assist control tidal volume 450, rate 20, PEEP 6, 100% FiO2 and RT was getting a ABG to adjust vent settings. Patient had a acute bump in WBC and per ID recommendations we will obtain a CT abdomen/pelvis if leuk ocytosis persist. Patient is on TPN and sedated with Levophed. Patient is also on vasopressor support with Levophed. Per surgery his ileus is resolving however will maintain OGT to LIWS. 01/01: Patient was started on a vasopressin yesterday late evening. This morning patient is on 20 mcg of Levophed and 0.03 vasopressin and sedated on 20 mcg of propofol. Patient WBC increased today and he is hypokalemic. We will treat hyperkalemia. Patient had a CT chest and abdomen/pelvis pending. The time examination total of 450, rate 20, PEEP of 6 and 35 percent FiO2. Per RN, Dr Pollock has stated that the patient will be returning to the OR today for likely anastomosis seen on CT abdomen/pelvis. 01/02: Patient noted, WBC improving, but noted to have anemia, will transfuse additional unit of Blood and repeat H/H. continue supportive care. 01/03: Continue to wean pressors, ABX PER ID, patient to return to OR today for washout and possible closure, CONTINUE TPN 01/04: Continues to show some improvement. Today is POD#12 s/p ex lap with extensive lysis of adhesions and two small bowel resections with primary anastamosis for SBO with necrotic segment small bowel. POD#3 s/p ex lap, r esection of perforated anastamosis, washout and abthera wound vac placement. POD#1 s/p ex lap with right hemicolectomy. Surgery planning to take back to the OR on Saturday with the hope to anastamos ileum to transverse colon and close abdomen. keep NGT to suction. Pt in deep sedation due to open abdomen. Per ID - Continue IV Zosyn, renally dosed for Strep bacteremia treatment till 01/06/2021 -On TPN 01/05: Patient continues on HD, anticipate return to OR tomorrow for closure and anastemosis. Continues with deep sedation due to open abdomen 01/06: Continue supportive care, monitor pressures and electrolytes. He is post op Exploratory laparotomy, 2. Jejunal colonic anastomosis,3. Segmental small bowel resection and anastemosis closure today. Continue wound vac 01/07: Continue supportive care, Today is POD#15 s/p ex lap with extensive lysis of adhesions and two small bowel resections with primary anastamosis for SBO with necrotic segment small bowel. POD#6 s/p ex lap, resection of perforated anastamosis, washout and abthera wound vac placement. POD#4 s/p ex lap with right hemicolectomy. POD #1 exploratory laparotomy, 2. Jejunal colonic anastomosis,3. Segmental small bowel resection. Continue to monitor and correct electrolytes. Patient remains on fentanyl and TPN with lipids. Still hypoactive bowel sounds. 516: Patient now extubated, asked when he can go home, Still lethargic. Continue wound management, wound vac, Will need Rehab eval prior to discharge. 01/09: Patient remains on TPN, was started on labetalol drip per cardiology, patient had uncontrolled hypertension today however he cannot be given p.o. medications ileus resolves per surgery. Patient received hemodialysis today. NG tube remains to low intermittent suction. 01/10: Patient has some leukocytosis, slight hypokalemia and hyponatremia, metabolic acidosis. NG tube to LIWS, continue TPN. Patient will be downgraded to IMCU today. [facility] is working on placement. Will change frequency of hydralazine and discontinue labetalol drip. We will obtain a.m. BMP/mag/Phos and CBC. Infectious disease will like to start Zosyn if leukocytosis continues to worsen. 01/11: Patient leukocytosis has slightly improved potassium with in normal limits and other electrolytes are elevated but patient is scheduled for HD today. Remains on RA and A,A,Ox4. BP better controlled but remains elevated and we will increase clonidine dose. Hospitalist Physical - Constitutional Vitals: Temp Pulse Resp BP Pulse Ox 97.7 F 80 16 167/65 100 01/11/21 13:00 01/11/21 14:01 01/11/21 14:01 01/11/21 14:01 01/11/21 14:01 General appearance: Present: no acute distress - EENT ENT: hearing intact, poor dentition, other (tongue swelling) - Neck Neck: Present: normal ROM - Respiratory Respiratory effort: normal Respiratory: bilateral: diminished - Cardiovascular Rhythm: regular Heart Sounds: Present: S1 & S2. Absent: systolic murmur, diastolic murmur - Extremities Extremities: no ischemia, pulses intact, pulses symmetrical, No edema, normal temperature, normal color Peripheral Pulses: within normal limits - Abdominal General gastrointestinal: soft, non-tender, non-distended, absent bowel sounds - Integumentary Integumentary: Present: clear, warm, dry - Psychiatric Psychiatric: appropriate mood/affect, cooperative - Neurologic Neurologic: CNII-XII intact, moves all extremities - Allied Health Allied health notes reviewed: nursing, RT, social work HEART Score - HEART Score Troponin: Troponin T 0.021 ng/mL (0.00-0.029) 12/22/20 14:38 Results - Labs CBC & Chem 7: 01/11/21 05:18 01/11/21 05:18 Labs: Laboratory Last Values WBC 17.4 K/mm3 (4.5-11.0) H 01/11/21 05:18 RBC 3.34 M/mm3 (3.65-5.03) L 01/11/21 05:18 Hgb 10.2 gm/dl (11.8-15.2) L 01/11/21 05:18 Hct 29.7 % (35.5-45.6) L 01/11/21 05:18 MCV 89 fl (84-94) 01/11/21 05:18 MCH 30 pg (28-32) 01/11/21 05:18 MCHC 34 % (32-34) 01/11/21 05:18 RDW 15.9 % (13.2-15.2) H 01/11/21 05:18 Plt Count 407 K/mm3 (140-440) 01/11/21 05:18 Lymph % (Auto) 3.2 % (13.4-35.0) L 01/07/21 08:37 [place] % (Auto) 9.4 % (0.0-7.3) H 01/07/21 08:37 Eos % (Auto) 0.4 % (0.0-4.3) 01/07/21 08:37 Baso % (Auto) 0.4 % (0.0-1.8) 01/07/21 08:37 Lymph # (Auto) 0.4 K/mm3 (1.2-5.4) L 01/07/21 08:37 [place] # (Auto) 1.2 K/mm3 (0.0-0.8) H 01/07/21 08:37 Eos # (Auto) 0.1 K/mm3 (0.0-0.4) 01/07/21 08:37 Baso # (Auto) 0.1 K/mm3 (0.0-0.1) 01/07/21 08:37 Add Manual Diff Complete 01/10/21 09:26 Total Counted 100 01/10/21 09:26 Seg Neutrophils % Systems Analyst Engineer 01/10/21 09:26 Seg Neuts % (Manual) 95.0 % (40.0-70.0) H 01/10/21 09:26 Band Neutrophils % 1.0 % 01/10/21 09:26 Lymphocytes % (Manual) 3.0 % (13.4-35.0) L 01/10/21 09:26 Reactive Lymphs % (Man) 1.0 % 12/29/20 05:16 Monocytes % (Manual) 1.0 % (0.0-7.3) 01/10/21 09:26 Eosinophils % (Manual) 2.0 % (0.0-4.3) 12/29/20 05:16 Metamyelocytes % 2.0 % 12/29/20 05:16 Nucleated RBC % Not Reportable 01/10/21 09:26 Seg Neutrophils # 10.7 K/mm3 (1.8-7.7) H 01/07/21 08:37 Seg Neutrophils # Man 17.3 K/mm3 (1.8-7.7) H 01/10/21 09:26 Band Neutrophils # 0.2 K/mm3 01/10/21 09:26 Lymphocytes # (Manual) 0.5 K/mm3 (1.2-5.4) L 01/10/21 09:26 Abs React Lymphs (Man) 0.0 K/mm3 01/10/21 09:26 Monocytes # (Manual) 0.2 K/mm3 (0.0-0.8) 01/10/21 09:26 Eosinophils # (Manual) 0.0 K/mm3 (0.0-0.4) 01/10/21 09:26 Basophils # (Manual) 0.0 K/mm3 (0.0-0.1) 01/10/21 09:26 Metamyelocytes # 0.0 K/mm3 01/10/21 09:26 Myelocytes # 0.0 K/mm3 01/10/21 09:26 Promyelocytes # 0.0 K/mm3 01/10/21 09:26 Blast Cells # 0.0 K/mm3 01/10/21 09:26 WBC Morphology Not Reportable 01/10/21 09:26 Hypersegmented Neuts Not Reportable 01/10/21 09:26 Hyposegmented Neuts Not Reportable 01/10/21 09:26 Hypogranular Neuts Not Reportable 01/10/21 09:26 Smudge Cells Not Reportable 01/10/21 09:26 Toxic Granulation 1+ 01/10/21 09:26 Toxic Vacuolation Not Reportable 01/10/21 09:26 Dohle Bodies Not Reportable 01/10/21 09:26 Pelger-Huet Anomaly Not Reportable 01/10/21 09:26 Lamar Rods Not Reportable 01/10/21 09:26 Platelet Estimate Consistent w auto 01/10/21 09:26 Clumped Platelets Not Reportable 01/10/21 09:26 Plt Clumps, EDTA Not Reportable 01/10/21 09:26 Large Platelets Not Reportable 01/10/21 09:26 Giant Platelets Not Reportable 01/10/21 09:26 Platelet Satelliting Not Reportable 01/10/21 09:26 Plt Morphology Comment Not Reportable 01/10/21 09:26 RBC Morphology Not Reportable 01/10/21 09:26 Dimorphic RBCs Not Reportable 01/10/21 09:26 Polychromasia Not Reportable 01/10/21 09:26 Hypochromasia Not Reportable 01/10/21 09:26 Poikilocytosis Not Reportable 01/10/21 09:26 Anisocytosis 1+ 01/10/21 09:26 Microcytosis Not Reportable 01/10/21 09:26 Macrocytosis Not Reportable 01/10/21 09:26 Spherocytes Not Reportable 01/10/21 09:26 Pappenheimer Bodies Not Reportable 01/10/21 09:26 Sickle Cells Not Reportable 01/10/21 09:26 Target Cells Not Reportable 01/10/21 09:26 Tear Drop Cells Not Reportable 01/10/21 09:26 Ovalocytes Not Reportable 01/10/21 09:26 Helmet Cells Not Reportable 01/10/21 09:26 [place] Bodies Not Reportable 01/10/21 09:26 [place] Rings Not Reportable 01/10/21 09:26 [place] Cells Not Reportable 01/10/21 09:26 Bite Cells Not Reportable 01/10/21 09:26 Crenated Cell Not Reportable 01/10/21 09:26 Elliptocytes Not Reportable 01/10/21 09:26 Acanthocytes (Spur) Not Reportable 01/10/21 09:26 Rouleaux Not Reportable 01/10/21 09:26 Hemoglobin C Crystals Not Reportable 01/10/21 09:26 Schistocytes Not Reportable 01/10/21 09:26 Malaria parasites Not Reportable 01/10/21 09:26 Lucas Bodies Not Reportable 01/10/21 09:26 Hem Pathologist Commnt No 01/10/21 09:26 PT 16.9 Sec. (12.2-14.9) H 01/01/21 12:45 INR 1.39 (0.87-1.13) H 01/01/21 12:45 APTT 25.1 Sec. (24.2-36.6) 12/22/20 14:38 ABG pH 7.345 pH Units (7.350-7.450) L 01/07/21 17:14 POC ABG pCO2 41.4 mmHg (32.0-48.0) 01/07/21 03:07 ABG pCO2 40.3 mm Hg 01/07/21 17:14 POC ABG pO2 94.5 mmHg (83-108) 01/07/21 03:07 ABG pO2 67.4 mm Hg (80.0-90.0) L 01/07/21 17:14 POC ABG HCO3 22.7 01/07/21 03:07 ABG HCO3 21.5 mmol/L (20.0-26.0) 01/07/21 17:14 ABG O2 Saturation 94.3 % (95.0-99.0) L 01/07/21 17:14 ABG O2 Content 11.6 (0.0-44) 01/07/21 17:14 POC ABG Base Excess -2.7 01/07/21 03:07 ABG Base Excess -3.9 mmol/L (-2.0-3.0) L 01/07/21 17:14 ABG Hemoglobin 8.9 gm/dl (14.0-18.0) L 01/07/21 17:14 ABG Oxyhemoglobin 96.6 (94-98) 01/07/21 03:07 ABG Carboxyhemoglobin 1.5 % (0.0-5.0) 01/07/21 17:14 ABG Methemoglobin 0.6 % (0.0-1.5) 01/07/21 17:14 ABG Sodium 135.6 mmol/L (136.0-145.0) L 01/07/21 03:07 ABG Potassium 4.0 mmol/L (3.40-4.50) 01/07/21 03:07 ABG Chloride 102.0 mmol/L (98-107) 01/07/21 03:07 ABG Glucose 181 mg/dL (65-95) H 01/07/21 03:07 Oxyhemoglobin 92.3 % (95.0-99.0) L 01/07/21 17:14 Carboxyhemoglobin 0.7 (0.5-1.5) 01/07/21 03:07 FiO2 21 % 01/07/21 17:14 FiO2 % 45.0 01/07/21 03:07 Sodium 136 mmol/L (137-145) L 05/19/21 05:18 Potassium 3.9 mmol/L (3.6-5.0) 01/11/21 05:18 Chloride 94.6 mmol/L (98-107) L 01/11/21 05:18 Carbon Dioxide 19 mmol/L (22-30) L 01/11/21 05:18 Anion Gap 26 mmol/L 01/11/21 05:18 BUN 145 mg/dL (9-20) H 01/11/21 05:18 Creatinine 10.6 mg/dL (0.8-1.3) H 01/11/21 05:18 Estimated GFR 6 ml/min 01/11/21 05:18 BUN/Creatinine Ratio 14 % 01/11/21 05:18 Glucose 152 mg/dL (75-100) H 01/11/21 05:18 POC Glucose 149 mg/dL (70-105) H 01/11/21 05:19 Lactic Acid 1.50 mmol/L (0.7-2.0) 01/02/21 18:00 Calcium 9.3 mg/dL (8.4-10.2) 01/11/21 05:18 Phosphorus 6.00 mg/dL (2.5-4.5) H D 01/11/21 05:18 Magnesium 2.00 mg/dL (1.7-2.3) 01/11/21 05:18 Total Bilirubin 0.90 mg/dL (0.1-1.2) 01/08/21 04:34 AST 30 units/L (5-40) 01/08/21 04:34 ALT 29 units/L (7-56) 01/08/21 04:34 Alkaline Phosphatase 133 units/L (35-129) H 01/08/21 04:34 Ammonia 30.0 umol/L (25-60) 12/22/20 14:38 Troponin T 0.021 ng/mL (0.00-0.029) 12/22/20 14:38 Total Protein 5.4 g/dL (6.3-8.2) L 01/08/21 04:34 Albumin 1.9 g/dL (3.9-5) L 01/08/21 04:34 Albumin/Globulin Ratio 0.5 % 01/08/21 04:34 Triglycerides 77 mg/dL (2-149) 01/11/21 05:18 Lipase 41 units/L (13-60) 12/22/20 14:38 Procalcitonin > 200.00 ng/mL (<0.15) 12/24/20 15:06 TSH 1.470 mlU/mL (0.270-4.200) 12/28/20 19:44 Arterial Blood Glucose 181 mg/dL (65-95) H 01/07/21 03:07 Arterial Blood Ionized Calcium 4.3 mg/dL (4.6-5.3) L 01/07/21 03:07 Urine Color Yellow (Yellow) 12/22/20 18:53 Urine Turbidity Clear (Clear) 12/22/20 18:53 Urine pH 7.0 (5.0-7.0) 12/22/20 18:53 Ur Specific [place] 1.012 (1.003-1.030) 12/22/20 18:53 Urine Protein >500 mg/dL (Negative) 12/22/20 18:53 Urine Glucose (UA) Neg mg/dL (Negative) 12/22/20 18:53 Urine Ketones Neg mg/dL (Negative) 12/22/20 18:53 Urine Blood Neg (Negative) 12/22/20 18:53 Urine Nitrite Neg (Negative) 12/22/20 18:53 Urine Bilirubin Neg (Negative) 12/22/20 18:53 Urine Urobilinogen < 2.0 mg/dL (<2.0) 12/22/20 18:53 Ur Leukocyte Esterase Neg (Negative) 12/22/20 18:53 Urine WBC (Auto) < 1.0 /HPF (0.0-6.0) 12/22/20 18:53 Urine RBC (Auto) 1.0 /HPF (0.0-6.0) 12/22/20 18:53 Fluid Type Dialysate 12/22/20 Unknown Fluid Color Colorless 12/22/20 Unknown Fluid Appearance Cloudy 12/22/20 Unknown Fluid WBC 208 /mm3 12/22/20 Unknown Fluid RBC 45 /mm3 12/22/20 Unknown Fluid Seg Neutrophils 82.0 % 12/22/20 Unknown Fluid Lymphocytes 11.0 % 12/22/20 Unknown Fluid Reactive Lymphs 0 % 12/22/20 Unknown Fluid Monocytes 7.0 % 12/22/20 Unknown Fluid Eosinophils 0 % 12/22/20 Unknown Fluid Basophils 0 % 12/22/20 Unknown Random Vancomycin 13.7 ug/mL (0-40.0) 12/26/20 Unknown Digoxin 0.8 ng/mL (0.9-2.0) L 01/11/21 05:18 Hepatitis A IgM Ab Non-reactive (NonReactive) 12/23/20 11:38 Hep Bs Antigen Non-reactive (Negative) 12/23/20 11:38 Hep B Core IgM Ab Non-reactive (NonReactive) 12/23/20 11:38 Hepatitis C Antibody Non-reactive (NonReactive) 12/23/20 11:38 Blood Type A POSITIVE 01/06/21 07:10 Antibody Screen Negative 01/06/21 07:10 Crossmatch See Detail 01/06/21 07:10 Jeffery/IV: Voiding Method Incontinent Active Medications - Current Medications Current Medications: Generic Name Dose Route Start Last Admin Trade Name Freq PRN Reason Stop Dose Admin Acetaminophen 650 mg 12/31/20 15:30 12/31/20 15:13 Acetaminophen 650 Mg Rect Supp [place] 650 mg Q6H PRN Administration Non Cardiac Pain or Temp>100.5 Clonidine HCl 0.2 mg 01/11/21 10:00 01/11/21 09:24 Clonidine Tts 0.2 Mg/24 Hr Patch TD 0.2 mg We THOMAS Administration Digoxin 0.125 mg 01/09/21 12:00 01/11/21 11:59 Digoxin 0.5 Mg/2 Ml Inj IV 0.125 mg Q48H THOMAS Administration Diphenhydramine HCl 25 mg 01/08/21 18:23 01/11/21 09:05 Diphenhydramine 50 Mg/Ml Vial IV 25 mg BID THOMAS Administration Enalaprilat 1.25 mg 01/08/21 17:00 01/11/21 09:04 Enalaprilat 2.5 Mg/2 Ml Inj IV 01/11/21 16:59 Not Given Q8H THOMAS Famotidine 10 mg 12/24/20 13:00 01/11/21 09:05 Famotidine 20 Mg/2 Ml Inj IV 10 mg BID THOMAS Administration Glycopyrrolate 0.2 mg 01/09/21 15:00 01/11/21 06:30 Glycopyrrolate 0.4 Mg/2 Ml Inj IV 01/12/21 14:59 0.2 mg Q8H THOMAS Administration Haloperidol Lactate 5 mg 12/29/20 14:16 01/09/21 01:41 Haloperidol Lactate 5 Mg/1 Ml Inj IV 5 mg Q12H PRN Administration Agitation Heparin Sodium (Porcine) 5,000 unit 12/24/20 10:00 01/11/21 09:04 Heparin 5,000 Unit/1 Ml Vial SUB-Q 5,000 unit Q12HR THOMAS Administration Hydralazine HCl 10 mg 01/10/21 14:00 01/11/21 13:12 Hydralazine 20 Mg/1 Ml Inj IV 10 mg Q4HR THOMAS Administration Hydromorphone HCl 0.25 mg 01/09/21 10:53 01/11/21 02:11 Hydromorphone 1 Mg/1 Ml Inj IV 0.25 mg Q6H PRN Administration Pain , Severe (7-10) Hydrophilic Ointment 1 applic 12/31/20 06:39 Lip Therapy Vaseline TP Q2HR PRN Dry Lips Sodium Chloride 100 mls @ 999 mls/hr 12/23/20 11:03 Nacl 0.9% IV RYLAND PRN Hypotension Amino Acids/Electrolytes/Dextrose 2,016 mls @ 84 mls/hr 01/10/21 20:00 01/10/21 20:15 Tpn Adult IV 01/11/21 19:59 84 mls/hr [email or web address] [facility] Administration Protocol Amino Acids/Electrolytes/Dextrose 2,000 mls @ 0 mls/hr 01/11/21 20:00 Tpn Adult IV 01/12/21 16:00 [email or web address] [facility] Protocol As Directed Fat Emulsion Intravenous 250 mls @ 21 mls/hr 01/11/21 20:00 Intralipid 20% IV 01/12/21 07:59 [email or web address]@[email or web address] [facility] Insulin Glargine 10 units 01/03/21 10:00 01/11/21 09:08 Insulin Glargine 100 Units/Ml SUB-Q 10 units DAILY [facility] Administration Insulin Human Lispro 0 unit 01/03/21 12:00 01/11/21 12:00 Insulin Lispro 100 Unit/Ml SUB-Q 3 unit Q6HR [facility] Administration Protocol Metoprolol Tartrate 5 mg 12/30/20 12:00 01/11/21 13:10 Metoprolol Tartrate 5 Mg/5 Ml Inj IV 5 mg Q4HR THOMAS Administration Multi-Ingred Cream/Lotion/Oil/Oint 1 applic 12/31/20 06:39 Mineral Oil/Petrolatum, White Ophth Oint 3.5 Gm OU Q4HR PRN Dry Eye(s) Scopolamine 1 each 01/15/21 11:00 Scopolamine Transdermal Patch 72 Hr TD Q3D THOAMS Sodium Chloride 10 ml 12/22/20 22:00 01/11/21 09:13 Sodium Chloride 0.9% 10 Ml Flush Syringe IV 10 ml BID THOMAS Administration Sodium Chloride 10 ml 12/22/20 19:42 01/09/21 17:27 Sodium Chloride 0.9% 10 Ml Flush Syringe IV 10 ml PRN PRN Administration LINE FLUSH Nutrition/Malnutrition Assess - Dietary Evaluation Nutrition/Malnutrition Findings: Nutrition Notes Start: 12/24/20 12:36 Freq: Status: Active Protocol: Document 01/11/21 10:33 KAY (Rec: 01/11/21 10:40 KAY [id number]) Co-Sign 01/11/21 10:33 JUAN Nutrition Notes Initial or Follow up Reassessment Current Diagnosis CKD (stage V CKD),Sepsis, Hypertension,Heart Failure Other Pertinent Diagnosis Peritonitis, SBO s/p resection Current Diet TPN at 55/105/55 ml/hr Labs/Tests Na 136 Cl 94.6 CO2 19 BUN 145 Cr 10.6 P 6 Pertinent Medications Humalog Lantus Solumedrol Height 5 ft 7 in Weight 86.6 kg Reading Body Weight (kg) 67.27 BMI 29.9 Weight change and time frame Wt change noted Weight Status Obese Subjective/Other Information TPN Day 17. TPN change to cyclic. Percent of energy/protein needs met: 100%/100% Burn Absent Trauma Absent Current % PO Negligible Minimum of two criteria No #1 Nutrition Diagnosis Inadequate oral intake Diagnosis Progress(for reassessment Continues documentation) Is patient on ventilator? No Is Patient Ambulatory and/or Out of Bed No REE-([facility]-confined to bed) 195.464 Kcal/Kg value to use for calculation 19 Approximate Energy Requirements Using 1645 kcal/Kg Calculation Used for Recommendations Kcal/kg Additional Notes Pro needs: 101-121 g/day (1.25 -1.5 g/kg AdjBW, 81kg) Fluid needs per MD. Nutrition Intervention Change Diet Order: Continue CPN Nutrition Support: Cyclic CPN at 55/105/55 ml/hr for 20 hr. AA 6.0%, Lipids, MVI. Osmolality: 1592 Kcal 2,174 Protein (gm) 121 Carbohydrates (gm) 350 Fat (gm) 50 Fluid (mL) 2,266 Goal #1 Meet at least 75% of estimated energy and protein needs via CPN Anticipated Discharge Needs: unable to determine at this time Follow-Up By: 01/12/21 Additional Comments Labs in AM: BMP, Mag, Phos
--- NOTE | 2021-01-11 15:50 | Progress Note ---
Assessment and Plan Cultures: 12/22/2020 blood culture: Streptococcus bovis, Prevotella 12/22/2020 PD fluid culture: No growth 12/24/2020 tracheal aspirate culture: Gwendolyn albicans (likely a colonizer) 12/24/2020 blood culture: No growth 12/31/2020 sputum culture: No growth A/P: 60-year-old male with ESRD on PD, Crohn's disease, CHF, gastroesophageal reflux disease was admitted to the hospital with complaints of abdominal pain and fever: #Severe sepsis with shock: Remarkable improvement, off pressors (on Levophed and vasopressin), leukocytosis improving. Secondary to small bowel obstruction/necrotic bowel with associated peritonitis. Status post exploratory laparotomy on 12/23/2020 with extensive lysis, primary anastomosis, found to have necrotic segment of small bowel. #Small bowel obstruction/necrotic bowel: with concern for PD associated peritonitis: Nephrology and general surgery following. Status post exploratory laparotomy on 12/23/2020 with extensive lysis, primary anastomosis, found to have necrotic segment of small bowel. PD catheter remains in place. S/p ex lap, resection of perforated anastamosis, washout and abthera wound vac placement on 01/01. Repeat CT abdomen shows no new abscesses, noted small free fluid. S/p Exploratory laparotomy, Right hemicolectomy, Peritoneal lavage, Partial ome ntectomy, ABThera wound VAC placement on 01/03/2021. #Streptococcus bovis bacteremia and Prevotella bacteremia: secondary to above. TTE without obvious vegetations. Repeat blood cultures negative. #ESRD: Renally dose antibiotics. Used to be on PD, cath remains in place. Now on HD. #Elevated LFTs: Secondary to sepsis. #Acute respiratory failure: extubated, then re-intubated 12/31/2020. #Anemia: Severe. Recs: -Completed antibiotics -On TPN -Monitor off abx -If white count continues to uptrend tomorrow will start Estefani Redding MD [facility] O: [phone] F: [phone] Subjective Date of service: 01/11/21 Principal diagnosis: Ac hypoxemic resp failure; Severe Sepsis; Peritonitis; Acute SBO; ESRD; CHF Interval history: Afebrile, white count 17.4. Objective - Exam Narrative Exam: Narrative Exam: General appearance: Awake, alert Eyes: anicteric sclerae, moist conjunctivae; no lid-lag; PERRLA HENT: Normocephalic, Atraumatic; normal external ears, nares open, oropharynx limited with endotracheal tube, tongue out with edema Neck: supple, tracheal midline, no JVD Lungs: Coarse breath sounds bilaterally CV: Tachycardic Abdomen: Soft, tender. Midline abdominal wound Extremities: no edema, no cyanosis Skin: No rash. Psych: No agitation Neuro: No agitation - Constitutional Vitals: Vital Signs Temp Pulse Resp BP Pulse Ox 97.7 F 80 16 167/65 100 01/11/21 13:00 01/11/21 14:01 01/11/21 14:01 01/11/21 14:01 01/11/21 14:01 Temperature -Last 24 Hours Temperature 97.7 F Temperature 98.5 F Temperature 98.5 F Temperature 97.9 F Temperature 98.0 F Temperature 98.6 F Temperature 99.0 F Temperature 98.1 F Temperature 98.0 F Temperature 98.4 F - Labs CBC & Chem 7: 01/11/21 05:18 01/11/21 05:18 Labs: Abnormal lab results 01/10/21 01/10/21 01/11/21 Range/Units 17:44 23:50 05:18 WBC (4.5-11.0) K/mm3 RBC (3.65-5.03) M/mm3 Hgb (11.8-15.2) gm/dl Hct (35.5-45.6) % RDW (13.2-15.2) % Sodium 136 L (137-145) mmol/L Chloride 94.6 L (98-107) mmol/L Carbon Dioxide 19 L (22-30) mmol/L BUN 145 H (9-20) mg/dL Creatinine 10.6 H (0.8-1.3) mg/dL Glucose 152 H (75-100) mg/dL POC Glucose 171 H 151 H (70-105) mg/dL Phosphorus 6.00 H D (2.5-4.5) mg/dL Digoxin (0.9-2.0) ng/mL 01/11/21 01/11/21 01/11/21 Range/Units 05:18 05:18 05:19 WBC 17.4 H (4.5-11.0) K/mm3 RBC 3.34 L (3.65-5.03) M/mm3 Hgb 10.2 L (11.8-15.2) gm/dl Hct 29.7 L (35.5-45.6) % RDW 15.9 H (13.2-15.2) % Sodium (137-145) mmol/L Chloride (98-107) mmol/L Carbon Dioxide (22-30) mmol/L BUN (9-20) mg/dL Creatinine (0.8-1.3) mg/dL Glucose (75-100) mg/dL POC Glucose 149 H (70-105) mg/dL Phosphorus (2.5-4.5) mg/dL Digoxin 0.8 L (0.9-2.0) ng/mL
--- NOTE | 2021-01-11 16:20 | Event Note ---
I spoke to Cristopherkody Simeon at [phone] and updated her on current events. All questions answered. She sates her mother should be at bedside tomorrow during visiting hours. She stated she was updated this morning by .
--- NOTE | 2021-01-11 19:34 | XRay Report ---
ABDOMEN ONE VIEW INDICATION / CLINICAL INFORMATION: ngt placement. COMPARISON: None available. FINDINGS: A nasogastric tube is present with the tip superimposed over the expected position of the gastric ant rum Signer Name: Unruly Andrea MD FACR Signed: 01/11/2021 7:30 PM Workstation Name: [id number]
[2021-01-11] MEDS ORDERED: FAT EMULSIONS 20% 250 ML IV SCH (20:00)
[2021-01-11] MEDS ORDERED: TOTAL PARENTERAL NUTRITION 2,000 ML IV SCH (20:00)
[2021-01-12] MEDS: METOPROLOL TARTRATE 5 MG/5 ML INJ IV SCH ×6 (02:47→21:28)
[2021-01-12] MEDS: hydrALAZINE 20 MG/1 ML INJ IV SCH ×6 (02:48→21:23)
[2021-01-12] MEDS: GLYCOPYRROLATE 0.4 MG/2 ML INJ IV SCH ×2 (02:51→07:28)
[2021-01-12] MEDS: INSULIN LISPRO 100 UNIT/ML SUB-Q SCH ×3 (06:40→17:09)
[2021-01-12 07:21] LABS: Calcium 8.1 mg/dL (8.4-10.2)
--- NOTE | 2021-01-12 09:00 | Progress Note ---
Assessment and Plan Assessment and plan: This is a 60-year-old male with ESRD on peritoneal dialysis, Crohn's, hypertension, systolic CHF (EF 35%) who was admitted with sepsis, peritonitis, small bowel obstruction and treptococcus bovis bacteremia/Prevotella bacteremia Severe Sepsis with shock Streptococcus bovis bacteremia/Prevotella bacteremia Gwendolyn albicans tracheal aspirate Small bowel obstruction/necrotic bowel s/p ex lap with extensive lysis of adhesions, 2 small bowel resections with primary anastomosis, right hemicolectomy, jejunal colonic anastomosis, segmental small bowel resection Acute hypoxic respiratory failure Postoperative ileus Atrial fibrillation with RVR Leukocytosis Hyponatremia Hypochloremia Metabolic acidosis Gwendolyn albicans in tracheal aspirate from 12/24 ESRD on PD, PermCath to be placed Transaminitis Systolic CHF(EF 35%) Crohn's disease Hypertension -[facility], surgery, infectious disease, nephrology, vascular surgery, cardiology consulted, appreciate recommendations -12/24 S/p ex lap with extensive expectations, 2 small bowel resections with primary anastomosis with surgery on 12/23 -s/p PICC and Permacath placement with vascular surgery on 12/27 -Extubated on 12/28, reintubated 12/31 for respiratory distress and extubated 01/08 -12/29 echocardiogram shows moderate concentric LVH, small pericardial effusion, transmitral Doppler flow pattern is grade 1 abnormal relaxation pattern, left- ventricular systolic function normal, LVEF 50 to 55%, no wall motion abnormalities. -01/01 CT abdomen/pelvis shows small pericardial effusion, mild coronary artery atherosclerotic calcification, small bilateral pleural effusions with associated volume loss, no convincing evidence of bowel obstruction or inflammation, postoperative changes from interval/recent midline laparotomy with a moderate amount of free fluid throughout the abdomen, small amount of dependent free air presumably postoperative -01/02 s/p ex lap, resection of perforated anastamosis, washout and abthera wound vac placement. -01/04 s/p ex lap with right hemicolectomy. -01/06 s/p exploratory laparotomy, Jejunal colonic anastomosis, Segmental small bowel resection. -s/p Vasopressor support with Levophed and vasopressin -Transitioned to HD from PD -HD per nephro -NPO -TPN -NGT to LIS -s/p IV antibiotics -Tobacco abuse cessation counseling -Trend CBC, BMP DVT/GI prophylaxis: PPI, heparin subcu, SCDs to bilateral lower extremities while in bed Disposition: IMCU Critical care statement The high probability of a clinically significant, sudden or life threatening deterioration of the [pulmonary, cardiac, neuro, renal] system(s) required my full and direct attention, intervention and personal management. The aggregate critical care time was [35] minutes. This time is in addition to time spent performing reported procedures but includes the following: [x] Data Review and interpretation [x] Patient assessment and monitoring of vital signs [x] Documentation [x] Medication orders and management History Interval history: This is a 60 YO Male with ESRD on PD, GERD, Crohn's Disease, Nicotine Dependence, HTN, Systolic CHF(EF 35%) who presented to the emergency department on 12/22 with complaints of abdominal pain which began shortly after eating fast food rated 10/10 which is periumbilical, constant, associated with fever, nausea and multiple sites of vomiting and self-reported inability to undergo PD. In the emergency room patient underwent a CT scan of the abdomen/pelvis which revealed evidence of partial small bowel obstruction, symptoms were consistent with bacterial peritonitis. Patient was admitted to the hospital service with sepsis, peritonitis, and small bowel obstruction with consults to general surgery, nephrology, infectious disease and [facility]. 12/23. Patient had temperature 101.2 F, tachycardia and elevated lactic acid on admission. Meet sepsis criteria. Started on IV antibiotics. ID has been consulted. Surgery consulted this a.m.-advised laparoscopy. He remains on NG tube connected to suction. 12/24. Patient was noted to have peritonitis yesterday and patient undergoing exploratory laparotomy. Patient remained intubated after procedure and is in ICU. Now on broad-spectrum antibiotics. ID on board. 12/25. Remains mechanically ventilated and sedated. Temp 103 Fahrenheit. Antibiotics broadened-ID added fluconazole and Flagyl. Blood cultures ordered. Plan to repeat CT abdomen tomorrow if not better. Surgery following. 12/26: Patient remains on mechanical ventilation on CMV tidal line 550, rate of 14, PEEP of 8 and 30% FiO2 and sedated on fentanyl 4 micrograms. Today we will remove his Jeffery and CCM dropped his rate controlled him on CPAP. We will trend CBC given recent drop in H/H. 12/27: Patient remains intubated on CMV tidal volume 550, rate 12, PEEP 8 on 30% FiO2 at the time my examination. Patient's TPN will be changed to PPN. Patient's fentanyl drip will be changed to IV push fentanyl and have a permacath placed today and midline. Patient was placed on a spontaneous breathing trial was switched back to CMV prior to procedure. 12/28: Patient on fentanyl but awake and follows commands. At the time of my examination he was on a CPAP trial and is scheduled to receive HD today. s/o permacath and PICC placement with vascular yesterday. His blood culture grew Prevotella and addition to Streptococcus bovis. This evening Dr. Spicer attempted to extubate the patient and his heart rate went to the 180s. Stat EKG obtained and cardiology consulted. 12/29: Patient was started on amiodarone IV for A. fib RVR yesterday and today he is more rate controlled into the 70s and 80s. Patient was extubated yesterday and is currently on Ventimask. Patient will be transferred to [facility]. Patient continues to be n.p.o. with TPN and NG tube to LIS. He is hypokalemic today which was repleted. 12/30; patient was on IV amiodarone for treatment with RVR, rate is controlled. Patient was off oxygen. patient is n.p.o. and on TPN. Surgery is following the patient. 12/31: Patient was intubated overnight for respiratory distress and this morning on examination he was on assist control tidal volume 450, rate 20, PEEP 6, 100% FiO2 and RT was getting a ABG to adjust vent settings. Patient had a acute bump in WBC and per ID recommendations we will obtain a CT abdomen/pelvis if leukocytosis persist. Patient is on TPN and sedated with Levophed. Patient is also on vasopressor support with Levophed. Per surgery his ileus is resolving however will maintain OGT to LIWS. 01/01: Patient was started on a vasopressin yesterday late evening. This morning patient is on 20 mcg of Levophed and 0.03 vasopressin and sedated on 20 mcg of propofol. Patient WBC increased today and he is hypokalemic. We will treat hyperkalemia. Patient had a CT chest and abdomen/pelvis pending. The time examination total of 450, rate 20, PEEP of 6 and 35 percent FiO2. Per RN, Dr Pollock has stated that the patient will be returning to the OR today for likely anastomosis seen on CT abdomen/pelvis. This is a 60 YO Male with ESRD on PD, GERD, Crohn's Disease, Nicotine Dependence, HTN, Systolic CHF(EF 35%) who presented to the emergency department on 12/22 with complaints of abdominal pain which began shortly after eating fast food rated 10/10 which is periumbilical, constant, associated with fever, nausea and multiple sites of vomiting and self-reported inability to undergo PD. In the emergency room patient underwent a CT scan of the abdomen/pelvis which revealed evidence of partial small bowel obstruction, symptoms were consistent with bacterial peritonitis. Patient was admitted to the hospital service with sepsis, peritonitis, and small bowel obstruction with consults to general surgery, nephrology, infectious disease and [facility]. 12/23. Patient had temperature 101.2 F, tachycardia and elevated lactic acid on admission. Meet sepsis criteria. Started on IV antibiotics. ID has been consulted. Surgery consulted this a.m.-advised laparoscopy. He remains on NG tube connected to suction. 12/24. Patient was noted to have peritonitis yesterday and patient undergoing exploratory laparotomy. Patient remained intubated after procedure and is in ICU. Now on broad-spectrum antibiotics. ID on board. 12/25. Remains mechanically ventilated and sedated. Temp 103 Fahrenheit. Antibiotics broadened-ID added fluconazole and Flagyl. Blood cultures ordered. Plan to repeat CT abdomen tomorrow if not better. Surgery following. 12/26: Patient remains on mechanical ventilation on CMV tidal line 550, rate of 14, PEEP of 8 and 30% FiO2 and sedated on fentanyl 4 micrograms. Today we will remove his Jeffery and CCM dropped his rate controlled him on CPAP. We will trend CBC given recent drop in H/H. 12/27: Patient remains intubated on CMV tidal volume 550, rate 12, PEEP 8 on 30% FiO2 at the time my examination. Patient's TPN will be changed to PPN. Patient's fentanyl drip will be changed to IV push fentanyl and have a permacath placed today and midline. Patient was placed on a spontaneous breathing trial was switched back to CMV prior to procedure. 12/28: Patient on fentanyl but awake and follows commands. At the time of my examination he was on a CPAP trial and is scheduled to receive HD today. s/o permacath and PICC placement with vascular yesterday. His blood culture grew Prevotella and addition to Streptococcus bovis. This evening Dr. Spicer attempted to extubate the patient and his heart rate went to the 180s. Stat EKG obtained and cardiology consulted. 12/29: Patient was started on amiodarone IV for A. fib RVR yesterday and today he is more rate controlled into the 70s and 80s. Patient was extubated yesterday and is currently on Ventimask. Patient will be transferred to [facility]. Patient continues to be n.p.o. with TPN and NG tube to LIS. He is hypokalemic today which was repleted. 12/30; patient was on IV amiodarone for treatment with RVR, rate is controlled. Patient was off oxygen. patient is n.p.o. and on TPN. Surgery is following the patient. 12/31: Patient was intubated overnight for respiratory distress and this morning on examination he was on assist control tidal volume 450, rate 20, PEEP 6, 100% FiO2 and RT was getting a ABG to adjust vent settings. Patient had a acute bump in WBC and per ID recommendations we will obtain a CT abdomen/pelvis if leuk ocytosis persist. Patient is on TPN and sedated with Levophed. Patient is also on vasopressor support with Levophed. Per surgery his ileus is resolving however will maintain OGT to LIWS. 01/01: Patient was started on a vasopressin yesterday late evening. This morning patient is on 20 mcg of Levophed and 0.03 vasopressin and sedated on 20 mcg of propofol. Patient WBC increased today and he is hypokalemic. We will treat hyperkalemia. Patient had a CT chest and abdomen/pelvis pending. The time examination total of 450, rate 20, PEEP of 6 and 35 percent FiO2. Per RN, Dr Pollock has stated that the patient will be returning to the OR today for likely anastomosis seen on CT abdomen/pelvis. 01/02: Patient noted, WBC improving, but noted to have anemia, will transfuse additional unit of Blood and repeat H/H. continue supportive care. 01/03: Continue to wean pressors, ABX PER ID, patient to return to OR today for washout and possible closure, CONTINUE TPN 01/04: Continues to show some improvement. Today is POD#12 s/p ex lap with extensive lysis of adhesions and two small bowel resections with primary anastamosis for SBO with necrotic segment small bowel. POD#3 s/p ex lap, r esection of perforated anastamosis, washout and abthera wound vac placement. POD#1 s/p ex lap with right hemicolectomy. Surgery planning to take back to the OR on Saturday with the hope to anastamos ileum to transverse colon and close abdomen. keep NGT to suction. Pt in deep sedation due to open abdomen. Per ID - Continue IV Zosyn, renally dosed for Strep bacteremia treatment till 01/06/2021 -On TPN 01/05: Patient continues on HD, anticipate return to OR tomorrow for closure and anastemosis. Continues with deep sedation due to open abdomen 01/06: Continue supportive care, monitor pressures and electrolytes. He is post op Exploratory laparotomy, 2. Jejunal colonic anastomosis,3. Segmental small bowel resection and anastemosis closure today. Continue wound vac 01/07: Continue supportive care, Today is POD#15 s/p ex lap with extensive lysis of adhesions and two small bowel resections with primary anastamosis for SBO with necrotic segment small bowel. POD#6 s/p ex lap, resection of perforated anastamosis, washout and abthera wound vac placement. POD#4 s/p ex lap with right hemicolectomy. POD #1 exploratory laparotomy, 2. Jejunal colonic anastomosis,3. Segmental small bowel resection. Continue to monitor and correct electrolytes. Patient remains on fentanyl and TPN with lipids. Still hypoactive bowel sounds. 516: Patient now extubated, asked when he can go home, Still lethargic. Continue wound management, wound vac, Will need Rehab eval prior to discharge. 01/09: Patient remains on TPN, was started on labetalol drip per cardiology, patient had uncontrolled hypertension today however he cannot be given p.o. medications ileus resolves per surgery. Patient received hemodialysis today. NG tube remains to low intermittent suction. 01/10: Patient has some leukocytosis, slight hypokalemia and hyponatremia, metabolic acidosis. NG tube to LIWS, continue TPN. Patient will be downgraded to IMCU today. [facility] is working on placement. Will change frequency of hydralazine and discontinue labetalol drip. We will obtain a.m. BMP/mag/Phos and CBC. Infectious disease will like to start Zosyn if leukocytosis continues to worsen. 01/11: Patient leukocytosis has slightly improved potassium with in normal limits and other electrolytes are elevated but patient is scheduled for HD today. Remains on RA and A,A,Ox4. BP better controlled but remains elevated and we will increase clonidine dose. 01/12/2021; patient's blood pressure is better after dialysis and as needed IV medications and clonidine patch. Patient is followed by general surgery. Patie nt was alert and oriented and asked when he is going home. History Interval history: Patient was seen and evaluated this morning Patient is still on TPN, patient was alert and oriented and he was asking when he is going home Patient is off oxygen Hospitalist Physical - Physical exam Narrative exam: Patient was off oxygen The patient appeared well nourished and normally developed. Vital signs as documented. Head exam is unremarkable. No scleral icterus . Neck is without jugular venous distension, thyromegaly, or carotid bruits. Lungs are clear to auscultation. Cardiac exam reveals regular rate and Rhythm. Abdominal exam reveals clean midline surgical laparatomy wound. Draining tube from the wound Extremities are nonedematous and both femoral and pedal pulses are normal. 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 No focal weakness. - Constitutional Vitals: Temp Pulse Resp BP Pulse Ox 99.6 F 76 20 159/75 98 01/12/21 08:00 01/12/21 06:41 01/12/21 06:00 01/12/21 06:41 01/12/21 06:00 General appearance: Present: no acute distress HEART Score - HEART Score Troponin: Troponin T 0.021 ng/mL (0.00-0.029) 12/22/20 14:38 Results - Labs CBC & Chem 7: 01/11/21 05:18 01/12/21 06:50 Labs: Laboratory Last Values WBC 17.4 K/mm3 (4.5-11.0) H 01/11/21 05:18 RBC 3.34 M/mm3 (3.65-5.03) L 01/11/21 05:18 Hgb 10.2 gm/dl (11.8-15.2) L 01/11/21 05:18 Hct 29.7 % (35.5-45.6) L 01/11/21 05:18 MCV 89 fl (84-94) 01/11/21 05:18 MCH 30 pg (28-32) 01/11/21 05:18 MCHC 34 % (32-34) 01/11/21 05:18 RDW 15.9 % (13.2-15.2) H 01/11/21 05:18 Plt Count 407 K/mm3 (140-440) 01/11/21 05:18 Lymph % (Auto) 3.2 % (13.4-35.0) L 01/07/21 08:37 [place] % (Auto) 9.4 % (0.0-7.3) H 01/07/21 08:37 Eos % (Auto) 0.4 % (0.0-4.3) 01/07/21 08:37 Baso % (Auto) 0.4 % (0.0-1.8) 01/07/21 08:37 Lymph # (Auto) 0.4 K/mm3 (1.2-5.4) L 01/07/21 08:37 [place] # (Auto) 1.2 K/mm3 (0.0-0.8) H 01/07/21 08:37 Eos # (Auto) 0.1 K/mm3 (0.0-0.4) 01/07/21 08:37 Baso # (Auto) 0.1 K/mm3 (0.0-0.1) 01/07/21 08:37 Add Manual Diff Complete 01/10/21 09:26 Total Counted 100 01/10/21 09:26 Seg Neutrophils % Department Operations Manager 01/10/21 09:26 Seg Neuts % (Manual) 95.0 % (40.0-70.0) H 01/10/21 09:26 Band Neutrophils % 1.0 % 01/10/21 09:26 Lymphocytes % (Manual) 3.0 % (13.4-35.0) L 01/10/21 09:26 Reactive Lymphs % (Man) 1.0 % 12/29/20 05:16 Monocytes % (Manual) 1.0 % (0.0-7.3) 01/10/21 09:26 Eosinophils % (Manual) 2.0 % (0.0-4.3) 12/29/20 05:16 Metamyelocytes % 2.0 % 12/29/20 05:16 Nucleated RBC % Not Reportable 01/10/21 09:26 Seg Neutrophils # 10.7 K/mm3 (1.8-7.7) H 01/07/21 08:37 Seg Neutrophils # Man 17.3 K/mm3 (1.8-7.7) H 01/10/21 09:26 Band Neutrophils # 0.2 K/mm3 01/10/21 09:26 Lymphocytes # (Manual) 0.5 K/mm3 (1.2-5.4) L 01/10/21 09:26 Abs React Lymphs (Man) 0.0 K/mm3 01/10/21 09:26 Monocytes # (Manual) 0.2 K/mm3 (0.0-0.8) 01/10/21 09:26 Eosinophils # (Manual) 0.0 K/mm3 (0.0-0.4) 01/10/21 09:26 Basophils # (Manual) 0.0 K/mm3 (0.0-0.1) 01/10/21 09:26 Metamyelocytes # 0.0 K/mm3 01/10/21 09:26 Myelocytes # 0.0 K/mm3 01/10/21 09:26 Promyelocytes # 0.0 K/mm3 01/10/21 09:26 Blast Cells # 0.0 K/mm3 01/10/21 09:26 WBC Morphology Not Reportable 01/10/21 09:26 Hypersegmented Neuts Not Reportable 01/10/21 09:26 Hyposegmented Neuts Not Reportable 01/10/21 09:26 Hypogranular Neuts Not Reportable 01/10/21 09:26 Smudge Cells Not Reportable 01/10/21 09:26 Toxic Granulation 1+ 01/10/21 09:26 Toxic Vacuolation Not Reportable 01/10/21 09:26 Dohle Bodies Not Reportable 01/10/21 09:26 Pelger-Huet Anomaly Not Reportable 01/10/21 09:26 Lamar Rods Not Reportable 01/10/21 09:26 Platelet Estimate Consistent w auto 01/10/21 09:26 Clumped Platelets Not Reportable 01/10/21 09:26 Plt Clumps, EDTA Not Reportable 01/10/21 09:26 Large Platelets Not Reportable 01/10/21 09:26 Giant Platelets Not Reportable 01/10/21 09:26 Platelet Satelliting Not Reportable 01/10/21 09:26 Plt Morphology Comment Not Reportable 01/10/21 09:26 RBC Morphology Not Reportable 01/10/21 09:26 Dimorphic RBCs Not Reportable 01/10/21 09:26 Polychromasia Not Reportable 01/10/21 09:26 Hypochromasia Not Reportable 01/10/21 09:26 Poikilocytosis Not Reportable 01/10/21 09:26 Anisocytosis 1+ 01/10/21 09:26 Microcytosis Not Reportable 01/10/21 09:26 Macrocytosis Not Reportable 01/10/21 09:26 Spherocytes Not Reportable 01/10/21 09:26 Pappenheimer Bodies Not Reportable 01/10/21 09:26 Sickle Cells Not Reportable 01/10/21 09:26 Target Cells Not Reportable 01/10/21 09:26 Tear Drop Cells Not Reportable 01/10/21 09:26 Ovalocytes Not Reportable 01/10/21 09:26 Helmet Cells Not Reportable 01/10/21 09:26 [place] Bodies Not Reportable 01/10/21 09:26 [place] Rings Not Reportable 01/10/21 09:26 [place] Cells Not Reportable 01/10/21 09:26 Bite Cells Not Reportable 01/10/21 09:26 Crenated Cell Not Reportable 01/10/21 09:26 Elliptocytes Not Reportable 01/10/21 09:26 Acanthocytes (Spur) Not Reportable 01/10/21 09:26 Rouleaux Not Reportable 01/10/21 09:26 Hemoglobin C Crystals Not Reportable 01/10/21 09:26 Schistocytes Not Reportable 01/10/21 09:26 Malaria parasites Not Reportable 01/10/21 09:26 Lucas Bodies Not Reportable 01/10/21 09:26 Hem Pathologist Commnt No 01/10/21 09:26 PT 16.9 Sec. (12.2-14.9) H 01/01/21 12:45 INR 1.39 (0.87-1.13) H 01/01/21 12:45 APTT 25.1 Sec. (24.2-36.6) 12/22/20 14:38 ABG pH 7.345 pH Units (7.350-7.450) L 01/07/21 17:14 POC ABG pCO2 41.4 mmHg (32.0-48.0) 01/07/21 03:07 ABG pCO2 40.3 mm Hg 01/07/21 17:14 POC ABG pO2 94.5 mmHg (83-108) 01/07/21 03:07 ABG pO2 67.4 mm Hg (80.0-90.0) L 01/07/21 17:14 POC ABG HCO3 22.7 01/07/21 03:07 ABG HCO3 21.5 mmol/L (20.0-26.0) 01/07/21 17:14 ABG O2 Saturation 94.3 % (95.0-99.0) L 01/07/21 17:14 ABG O2 Content 11.6 (0.0-44) 01/07/21 17:14 POC ABG Base Excess -2.7 01/07/21 03:07 ABG Base Excess -3.9 mmol/L (-2.0-3.0) L 01/07/21 17:14 ABG Hemoglobin 8.9 gm/dl (14.0-18.0) L 01/07/21 17:14 ABG Oxyhemoglobin 96.6 (94-98) 01/07/21 03:07 ABG Carboxyhemoglobin 1.5 % (0.0-5.0) 01/07/21 17:14 ABG Methemoglobin 0.6 % (0.0-1.5) 01/07/21 17:14 ABG Sodium 135.6 mmol/L (136.0-145.0) L 01/07/21 03:07 ABG Potassium 4.0 mmol/L (3.40-4.50) 01/07/21 03:07 ABG Chloride 102.0 mmol/L (98-107) 01/07/21 03:07 ABG Glucose 181 mg/dL (65-95) H 01/07/21 03:07 Oxyhemoglobin 92.3 % (95.0-99.0) L 01/07/21 17:14 Carboxyhemoglobin 0.7 (0.5-1.5) 01/07/21 03:07 FiO2 21 % 05/15/21 17:14 FiO2 % 45.0 01/07/21 03:07 Sodium 138 mmol/L (137-145) 01/12/21 06:50 Potassium 2.9 mmol/L (3.6-5.0) L* D 01/12/21 06:50 Chloride 94.8 mmol/L (98-107) L 01/12/21 06:50 Carbon Dioxide 26 mmol/L (22-30) D 01/12/21 06:50 Anion Gap 20 mmol/L 01/12/21 06:50 BUN 102 mg/dL (9-20) H 01/12/21 06:50 Creatinine 8.3 mg/dL (0.8-1.3) H 01/12/21 06:50 Estimated GFR 8 ml/min 01/12/21 06:50 BUN/Creatinine Ratio 12 % 01/12/21 06:50 Glucose 139 mg/dL (75-100) H 01/12/21 06:50 POC Glucose 145 mg/dL (70-105) H 01/11/21 23:14 Lactic Acid 1.50 mmol/L (0.7-2.0) 01/02/21 18:00 Calcium 8.1 mg/dL (8.4-10.2) L 01/12/21 06:50 Phosphorus 5.00 mg/dL (2.5-4.5) H 01/12/21 06:50 Magnesium 1.70 mg/dL (1.7-2.3) 01/12/21 06:50 Total Bilirubin 0.90 mg/dL (0.1-1.2) 01/08/21 04:34 AST 30 units/L (5-40) 01/08/21 04:34 ALT 29 units/L (7-56) 01/08/21 04:34 Alkaline Phosphatase 133 units/L (35-129) H 01/08/21 04:34 Ammonia 30.0 umol/L (25-60) 12/22/20 14:38 Troponin T 0.021 ng/mL (0.00-0.029) 12/22/20 14:38 Total Protein 5.4 g/dL (6.3-8.2) L 01/08/21 04:34 Albumin 1.9 g/dL (3.9-5) L 01/08/21 04:34 Albumin/Globulin Ratio 0.5 % 01/08/21 04:34 Triglycerides 77 mg/dL (2-149) 01/11/21 05:18 Lipase 41 units/L (13-60) 12/22/20 14:38 Procalcitonin > 200.00 ng/mL (<0.15) 12/24/20 15:06 TSH 1.470 mlU/mL (0.270-4.200) 12/28/20 19:44 Arterial Blood Glucose 181 mg/dL (65-95) H 01/07/21 03:07 Arterial Blood Ionized Calcium 4.3 mg/dL (4.6-5.3) L 01/07/21 03:07 Urine Color Yellow (Yellow) 12/22/20 18:53 Urine Turbidity Clear (Clear) 12/22/20 18:53 Urine pH 7.0 (5.0-7.0) 12/22/20 18:53 Ur Specific [place] 1.012 (1.003-1.030) 12/22/20 18:53 Urine Protein >500 mg/dL (Negative) 12/22/20 18:53 Urine Glucose (UA) Neg mg/dL (Negative) 12/22/20 18:53 Urine Ketones Neg mg/dL (Negative) 12/22/20 18:53 Urine Blood Neg (Negative) 12/22/20 18:53 Urine Nitrite Neg (Negative) 12/22/20 18:53 Urine Bilirubin Neg (Negative) 12/22/20 18:53 Urine Urobilinogen < 2.0 mg/dL (<2.0) 12/22/20 18:53 Ur Leukocyte Esterase Neg (Negative) 12/22/20 18:53 Urine WBC (Auto) < 1.0 /HPF (0.0-6.0) 12/22/20 18:53 Urine RBC (Auto) 1.0 /HPF (0.0-6.0) 12/22/20 18:53 Fluid Type Dialysate 12/22/20 Unknown Fluid Color Colorless 12/22/20 Unknown Fluid Appearance Cloudy 12/22/20 Unknown Fluid WBC 208 /mm3 12/22/20 Unknown Fluid RBC 45 /mm3 12/22/20 Unknown Fluid Seg Neutrophils 82.0 % 12/22/20 Unknown Fluid Lymphocytes 11.0 % 12/22/20 Unknown Fluid Reactive Lymphs 0 % 12/22/20 Unknown Fluid Monocytes 7.0 % 12/22/20 Unknown Fluid Eosinophils 0 % 12/22/20 Unknown Fluid Basophils 0 % 12/22/20 Unknown Random Vancomycin 13.7 ug/mL (0-40.0) 12/26/20 Unknown Digoxin 0.8 ng/mL (0.9-2.0) L 01/11/21 05:18 Hepatitis A IgM Ab Non-reactive (NonReactive) 12/23/20 11:38 Hep Bs Antigen Non-reactive (Negative) 12/23/20 11:38 Hep B Core IgM Ab Non-reactive (NonReactive) 12/23/20 11:38 Hepatitis C Antibody Non-reactive (NonReactive) 12/23/20 11:38 Blood Type A POSITIVE 01/06/21 07:10 Antibody Screen Negative 01/06/21 07:10 Crossmatch See Detail 01/06/21 07:10 Jeffery/IV: Voiding Method Incontinent Active Medications - Current Medications Current Medications: Generic Name Dose Route Start Last Admin Trade Name Freq PRN Reason Stop Dose Admin Acetaminophen 650 mg 12/31/20 15:30 12/31/20 15:13 Acetaminophen 650 Mg Rect Supp LA 650 mg Q6H PRN Administration Non Cardiac Pain or Temp>100.5 Clonidine HCl 0.2 mg 01/11/21 10:00 01/11/21 09:24 Clonidine Tts 0.2 Mg/24 Hr Patch TD 0.2 mg We THOMAS Administration Digoxin 0.125 mg 01/09/21 12:00 01/11/21 11:59 Digoxin 0.5 Mg/2 Ml Inj IV 0.125 mg Q48H THOMAS Administration Diphenhydramine HCl 25 mg 01/08/21 18:23 01/11/21 21:30 Diphenhydramine 50 Mg/Ml Vial IV 25 mg BID THOMAS Administration Famotidine 10 mg 12/24/20 13:00 01/11/21 21:33 Famotidine 20 Mg/2 Ml Inj IV 10 mg BID THOMAS Administration Glycopyrrolate 0.2 mg 01/09/21 15:00 01/12/21 07:28 Glycopyrrolate 0.4 Mg/2 Ml Inj IV 01/12/21 14:59 0.2 mg Q8H THOMAS Administration Haloperidol Lactate 5 mg 12/29/20 14:16 01/09/21 01:41 Haloperidol Lactate 5 Mg/1 Ml Inj IV 5 mg Q12H PRN Administration Agitation Heparin Sodium (Porcine) 5,000 unit 12/24/20 10:00 01/11/21 21:31 Heparin 5,000 Unit/1 Ml Vial SUB-Q 5,000 unit Q12HR THOMAS Administration Hydralazine HCl 10 mg 01/10/21 14:00 01/12/21 06:41 Hydralazine 20 Mg/1 Ml Inj IV Not Given Q4HR [facility] Hydromorphone HCl 0.25 mg 01/09/21 10:53 01/11/21 02:11 Hydromorphone 1 Mg/1 Ml Inj IV 0.25 mg Q6H PRN Administration Pain , Severe (7-10) Hydrophilic Ointment 1 applic 12/31/20 06:39 01/11/21 21:28 Lip Therapy Vaseline TP 1 applic Q2HR PRN Administration Dry Lips Sodium Chloride 100 mls @ 999 mls/hr 12/23/20 11:03 Nacl 0.9% IV [place] PRN Hypotension Amino Acids/Electrolytes/Dextrose 2,000 mls @ 0 mls/hr 01/11/21 20:00 01/11/21 21:04 Tpn Adult IV 01/12/21 16:00 55 mls/hr DAILY@1999 [facility] Administration Protocol As Directed Potassium Chloride 20 meq in 100 mls @ 100 mls/hr 01/12/21 09:00 Kcl 20meq/100ml IV 01/12/21 10:59 Q1H [facility] Insulin Glargine 10 units 01/03/21 10:00 01/11/21 09:08 Insulin Glargine 100 Units/Ml SUB-Q 10 units DAILY THOMAS Administration Insulin Human Lispro 0 unit 01/03/21 12:00 01/12/21 06:40 Insulin Lispro 100 Unit/Ml SUB-Q Not Given Q6HR [facility] Protocol Metoprolol Tartrate 5 mg 12/30/20 12:00 01/12/21 06:40 Metoprolol Tartrate 5 Mg/5 Ml Inj IV 5 mg Q4HR THOMAS Administration Multi-Ingred Cream/Lotion/Oil/Oint 1 applic 12/31/20 06:39 Mineral Oil/Petrolatum, White Ophth Oint 3.5 Gm OU Q4HR PRN Dry Eye(s) Scopolamine 1 each 01/15/21 11:00 Scopolamine Transdermal Patch 72 Hr TD Q3D THOMAS Sodium Chloride 10 ml 12/22/20 22:00 01/11/21 21:34 Sodium Chloride 0.9% 10 Ml Flush Syringe IV 10 ml BID THOMAS Administration Sodium Chloride 10 ml 12/22/20 19:42 01/09/21 17:27 Sodium Chloride 0.9% 10 Ml Flush Syringe IV 10 ml PRN PRN Administration LINE FLUSH Nutrition/Malnutrition Assess - Dietary Evaluation Nutrition/Malnutrition Findings: Nutrition Notes Start: 12/24/20 12:36 Freq: Status: Active Protocol: Document 01/11/21 10:33 KAY (Rec: 01/11/21 10:40 KAY [id number]) Co-Sign 01/11/21 10:33 JUAN Nutrition Notes Initial or Follow up Reassessment Current Diagnosis CKD (stage V CKD),Sepsis, Hypertension,Heart Failure Other Pertinent Diagnosis Peritonitis, SBO s/p resection Current Diet TPN at 84 ml/hr Labs/Tests Na 136 Cl 94.6 CO2 19 BUN 145 Cr 10.6 P 6 Pertinent Medications Humalog Lantus Solumedrol Height 5 ft 7 in Weight 86.6 kg [place] Body Weight (kg) 67.27 BMI 29.9 Weight change and time frame Wt change noted Weight Status Obese Subjective/Other Information TPN Day 17. TPN change to cyclic. Percent of energy/protein needs met: 100%/100% Burn Absent Trauma Absent Current % PO Negligible Minimum of two criteria No #1 Nutrition Diagnosis Inadequate oral intake Diagnosis Progress(for reassessment Continues documentation) Is patient on ventilator? No Is Patient Ambulatory and/or Out of Bed No REE-([facility]-confined to bed) 1954.464 Kcal/Kg value to use for calculation 19 Approximate Energy Requirements Using 1645 kcal/Kg Calculation Used for Recommendations Kcal/kg Additional Notes Pro needs: 101-121 g/day (1.25 -1.5 g/kg AdjBW, 81kg) Fluid needs per MD. Nutrition Intervention Change Diet Order: Continue CPN Nutrition Support: Cyclic CPN at 55/105/55 ml/hr for 20 hr. AA 6.0%, Lipids, MVI. Osmolality: 1592 Kcal 2,174 Protein (gm) 121 Carbohydrates (gm) 350 Fat (gm) 50 Fluid (mL) 2,266 Goal #1 Meet at least 75% of estimated energy and protein needs via CPN Anticipated Discharge Needs: unable to determine at this time Follow-Up By: 01/12/21 Additional Comments Labs in AM: KAREN, , Delores
[2021-01-12] MEDS ORDERED: SODIUM CHLORIDE 0.9% 100 ML IV PRN (09:20)
--- NOTE | 2021-01-12 09:23 | Progress Note ---
Assessment and Plan Assessment: * ESRD previouaslyon peritoneal dialysis; now on back up HD (on peritoneal dialysis for 2 years with no history of peritonitis) * Small bowel obstruction --s/p ex-lap with jejuno-ileal anastamosis --s/p ex lap with extensive lysis of adhesions and two small bowel resections with primary anastamosis for SBO with necrotic segment small bowel. --s/p ex lap, resection of perforated anastamosis, washout and abthera wound vac placement. --s/p ex lap with right hemicolectomy. * Acute respiratory failure * Septic shock - resolved * Bacteremia - resolved * Hyperkalemia * Anemia of ESRD * Atrial fibrilation, new onset * Post op ileus Plan: * Patient is s/p HD yesterday. No acute need for HD today * Continue HD MWF via left IJ permcath (12/27) * BUN noted - adjust Qb and Qd * KCl repletion in progress. Adjust K bath with dialysis * UF as tolerated * Rate control per cardiology * Abx per primary team/ID * Nutrition per primary team * Maintatin MAP >65 * AM labs Subjective Date of service: 01/12/21 Principal diagnosis: Ac hypoxemic resp failure; Severe Sepsis; Peritonitis; Acute SBO; ESRD; CHF Interval history: Patient transferred to [facility]. No acute events. Reports that he feels tired. Objective - Vital Signs Vital signs: Vital Signs - 12hr 01/11/21 01/11/21 01/11/21 21:29 21:31 22:01 Temperature Pulse Rate 71 77 73 Pulse Rate [ From Monitor] Respiratory 16 Rate Blood Pressure 170/65 170/65 167/60 O2 Sat by Pulse 97 Oximetry 01/11/21 01/11/21 01/12/21 23:01 23:30 00:00 Temperature 97.5 F L Pulse Rate 73 80 Pulse Rate [ From Monitor] Respiratory 19 15 Rate Blood Pressure 175/53 170/65 O2 Sat by Pulse 100 99 Oximetry 01/12/21 01/12/21 01/12/21 01:01 02:01 02:47 Temperature Pulse Rate 76 75 79 Pulse Rate [ From Monitor] Respiratory 17 16 Rate Blood Pressure 170/79 150/80 131/77 O2 Sat by Pulse 97 98 Oximetry 01/12/21 01/12/21 01/12/21 02:48 03:01 04:00 Temperature 98.5 F Pulse Rate 73 81 Pulse Rate [ 87 From Monitor] Respiratory 20 20 Rate Blood Pressure 131/77 146/86 O2 Sat by Pulse 98 98 Oximetry 01/12/21 01/12/21 01/12/21 04:01 04:40 05:00 Temperature Pulse Rate 87 80 78 Pulse Rate [ From Monitor] Respiratory 20 36 H Rate Blood Pressure 156/73 156/73 O2 Sat by Pulse 98 Oximetry 01/12/21 01/12/21 01/12/21 06:00 06:40 06:41 Temperature Pulse Rate 73 79 76 Pulse Rate [ From Monitor] Respiratory 20 Rate Blood Pressure 159/75 159/75 159/75 O2 Sat by Pulse 98 Oximetry 01/12/21 08:00 Temperature 99.6 F Pulse Rate Pulse Rate [ From Monitor] Respiratory Rate Blood Pressure O2 Sat by Pulse Oximetry - General Appearance General appearance: well-developed, well-nourished EENT: ATNC Neck: no JVD Cardiology: regular, S1S2 Gastrointestinal: normal Musculoskeletal: other (no edema) Psychiatric: cooperative - Lab 01/11/21 05:18 01/12/21 06:50 Most recent lab results ABG pH 7.345 pH Units (7.350-7.450) L 01/07/21 17:14 ABG pCO2 40.3 mm Hg 01/07/21 17:14 ABG pO2 67.4 mm Hg (80.0-90.0) L 01/07/21 17:14 ABG HCO3 21.5 mmol/L (20.0-26.0) 01/07/21 17:14 ABG O2 Saturation 94.3 % (95.0-99.0) L 01/07/21 17:14 Calcium 8.1 mg/dL (8.4-10.2) L 01/12/21 06:50 Phosphorus 5.00 mg/dL (2.5-4.5) H 01/12/21 06:50 Magnesium 1.70 mg/dL (1.7-2.3) 01/12/21 06:50 Medications & Allergies - Medications Allergies/Adverse Reactions: Allergies No Known Allergies Allergy (Verified 06/09/20 15:27) Home Medications: Home Medications Medication Instructions Recorded Confirmed Last Taken Type Albuterol Mdi (or & Nicu Only) 2 puff IH QID PRN #1 inhalation 04/01/17 11/01/20 10/31/20 09:00 Rx [ProAir HFA Inhaler] Calcium Acetate 667 mg PO DAILY 04/20/20 11/01/20 10/31/20 09:00 History Centrum Men's Tablet 1 tab PO DAILY 04/20/20 11/01/20 10/31/20 09:00 History Cinacalcet 30 mg PO DAILY 04/20/20 11/01/20 10/31/20 09:00 History Dialyvite with Zinc Tablet 1 tab PO DAILY 04/20/20 11/01/20 10/31/20 09:00 History Magnesium 250 mg PO BID 04/20/20 11/01/20 10/31/20 17:00 History Triamcinolone 0.1% 1 1000units TRANSDERMA DAILY 04/20/20 11/01/20 10/31/20 09:00 History Vit B12/Folic Acid/B6/Aa No.15 1,000 mg PO DAILY 04/20/20 11/01/20 10/31/20 09:00 History amLODIPine 10 mg PO DAILY 06/09/20 11/01/20 10/31/20 09:00 History AtorvaSTATin 40 mg PO HS 11/01/20 11/01/20 10/31/20 21:00 History Benadryl 25 mg PO HS 11/01/20 11/01/20 10/31/20 21:00 History Diclofenac 1 TRANSDERMA QID 11/01/20 10/31/20 19:00 History Fluticasone Propionate 1 spray INTRANASAL DAILY 11/01/20 11/01/20 10/31/20 09:00 History Vitamin D3 2,000 units 11/01/20 10/31/20 09:00 History carvediloL 12.5 mg PO DAILY 11/01/20 11/01/20 10/31/20 09:00 History hydrALAZINE 100 mg PO TID 11/01/20 11/01/20 10/31/20 19:00 History Active Medications: Generic Name Dose Route Start Last Admin Trade Name Freq PRN Reason Stop Dose Admin Acetaminophen 650 mg 12/31/20 15:30 12/31/20 15:13 Acetaminophen 650 Mg Rect Supp SC 650 mg Q6H PRN Administration Non Cardiac Pain or Temp>100.5 Clonidine HCl 0.2 mg 01/11/21 10:00 01/11/21 09:24 Clonidine Tts 0.2 Mg/24 Hr Patch TD 0.2 mg We THOMAS Administration Digoxin 0.125 mg 01/09/21 12:00 01/11/21 11:59 Digoxin 0.5 Mg/2 Ml Inj IV 0.125 mg Q48H THOMAS Administration Diphenhydramine HCl 25 mg 01/08/21 18:23 01/11/21 21:30 Diphenhydramine 50 Mg/Ml Vial IV 25 mg BID THOMAS Administration Famotidine 10 mg 12/24/20 13:00 01/11/21 21:33 Famotidine 20 Mg/2 Ml Inj IV 10 mg BID THOMAS Administration Glycopyrrolate 0.2 mg 01/09/21 15:00 01/12/21 07:28 Glycopyrrolate 0.4 Mg/2 Ml Inj IV 01/12/21 14:59 0.2 mg Q8H THOMAS Administration Haloperidol Lactate 5 mg 12/29/20 14:16 01/09/21 01:41 Haloperidol Lactate 5 Mg/1 Ml Inj IV 5 mg Q12H PRN Administration Agitation Heparin Sodium (Porcine) 5,000 unit 12/24/20 10:00 01/11/21 21:31 Heparin 5,000 Unit/1 Ml Vial SUB-Q 5,000 unit Q12HR THOMAS Administration Hydralazine HCl 10 mg 01/10/21 14:00 01/12/21 06:41 Hydralazine 20 Mg/1 Ml Inj IV Not Given Q4HR [facility] Hydromorphone HCl 0.25 mg 01/09/21 10:53 01/11/21 02:11 Hydromorphone 1 Mg/1 Ml Inj IV 0.25 mg Q6H PRN Administration Pain , Severe (7-10) Hydrophilic Ointment 1 applic 12/31/20 06:39 01/11/21 21:28 Lip Therapy Vaseline TP 1 applic Q2HR PRN Administration Dry Lips Sodium Chloride 100 mls @ 999 mls/hr 12/23/20 11:03 Nacl 0.9% IV [place] PRN Hypotension Amino Acids/Electrolytes/Dextrose 2,000 mls @ 0 mls/hr 01/11/21 20:00 01/11/21 21:04 Tpn Adult IV 01/12/21 16:00 55 mls/hr DAILY@2000 [facility] Administration Protocol As Directed Potassium Chloride 20 meq in 100 mls @ 100 mls/hr 01/12/21 09:00 Kcl 20meq/100ml IV 01/12/21 10:59 Q1H THOMAS Sodium Chloride 100 mls @ 999 mls/hr 01/12/21 09:20 Nacl 0.9% IV [place] PRN Hypotension Insulin Glargine 10 units 01/03/21 10:00 01/11/21 09:08 Insulin Glargine 100 Units/Ml SUB-Q 10 units DAILY THOMAS Administration Insulin Human Lispro 0 unit 01/03/21 12:00 01/12/21 06:40 Insulin Lispro 100 Unit/Ml SUB-Q Not Given Q6HR [facility] Protocol Metoprolol Tartrate 5 mg 12/30/20 12:00 01/12/21 06:40 Metoprolol Tartrate 5 Mg/5 Ml Inj IV 5 mg Q4HR THOMAS Administration Multi-Ingred Cream/Lotion/Oil/Oint 1 applic 12/31/20 06:39 Mineral Oil/Petrolatum, White Ophth Oint 3.5 Gm OU Q4HR PRN Dry Eye(s) Scopolamine 1 each 01/15/21 11:00 Scopolamine Transdermal Patch 72 Hr TD Q3D THOMAS Sodium Chloride 10 ml 12/22/20 22:00 01/11/21 21:34 Sodium Chloride 0.9% 10 Ml Flush Syringe IV 10 ml BID THOMAS Administration Sodium Chloride 10 ml 12/22/20 19:42 01/09/21 17:27 Sodium Chloride 0.9% 10 Ml Flush Syringe IV 10 ml PRN PRN Administration LINE FLUSH
[2021-01-12] MEDS: POTASSIUM CHLORIDE 20 MEQ 20 MEQ/100 ML BAG IV SCH ×2 (10:03→12:20)
[2021-01-12] MEDS: diphenhydrAMINE 50 MG/ML VIAL IV SCH ×2 (10:12→21:24)
[2021-01-12] MEDS: FAMOTIDINE 20 MG/2 ML INJ IV SCH ×2 (10:22→21:28)
[2021-01-12] MEDS: HEPARIN 5,000 UNIT/1 ML VIAL SUB-Q SCH ×2 (10:32→21:26)
[2021-01-12] MEDS: INSULIN GLARGINE 100 UNITS/ML SUB-Q SCH (10:47)
--- NOTE | 2021-01-12 12:12 | Progress Note ---
Assessment and Plan New onset atrial fibrillation currently, he is sinus rhythm on telemetry Hx of nonischemic cardiomyopathy, resolving LVEF 50-55% by echo this presentation Small bowl obstruction status post emergency exploratory laparotomy for anastomotic leak status post exploratory laparotomy s/p ex lap, resection of perforated anastamosis, washout and abthera wound vac placement ESRD now on HD Anemia s/p PRBCs Continue intravenous digoxin, and intravenous metoprolol for paroxysmal atrial fibrillation. Patient is not a candidate for anticoagulation at this time due to his postoperative status and the presence of severe anemia. Conservative cardiac management. Subjective Date of service: 01/12/21 Principal diagnosis: Ac hypoxemic resp failure; Severe Sepsis; Peritonitis; Acute SBO; ESRD; CHF Interval history: Stable sinus rhythm on telemetry. Objective Vital Signs Temp Pulse Pulse Resp BP Pulse Ox Pulse Ox 01/12/21 10:14 85 153/73 01/12/21 10:00 84 18 153/73 98 01/12/21 09:00 87 20 156/77 100 01/12/21 08:01 90 22 154/75 98 01/12/21 08:00 99.6 F 83 01/12/21 07:00 87 14 153/75 98 01/12/21 06:41 76 159/75 01/12/21 06:40 79 159/75 01/12/21 06:00 73 20 159/75 98 01/12/21 05:00 78 36 H 156/73 01/12/21 04:40 80 01/12/21 04:01 87 20 156/73 98 01/12/21 04:00 98.5 F 87 20 98 01/12/21 03:01 81 20 146/86 98 01/12/21 02:48 73 131/77 01/12/21 02:47 79 131/77 01/12/21 02:01 75 16 150/80 98 01/12/21 01:01 76 17 170/79 97 01/12/21 00:00 80 15 170/65 99 01/11/21 23:30 97.5 F L 01/11/21 23:01 73 19 175/53 100 01/11/21 22:01 73 16 167/60 97 01/11/21 21:31 77 170/65 01/11/21 21:29 71 170/65 01/11/21 21:00 73 14 170/65 98 01/11/21 20:14 76 14 98 01/11/21 20:13 76 18 99 01/11/21 20:00 98.4 F 78 01/11/21 17:44 91 H 17 166/76 99 01/11/21 17:43 98.4 F 01/11/21 17:41 97 H 166/76 01/11/21 17:40 94 H 166/76 01/11/21 16:01 83 21 181/78 95 01/11/21 16:00 85 01/11/21 14:01 80 16 167/65 100 01/11/21 13:12 77 161/74 01/11/21 13:10 79 161/74 01/11/21 13:00 97.7 F 82 17 161/74 98 01/11/21 12:52 84 153/73 01/11/21 12:30 88 165/68 01/11/21 12:15 81 157/78 - Physical Examination General: No Apparent Distress HEENT: Positive: PERRL Cardiac: Positive: Reg Rate and Rhythm Lungs: Positive: Decreased Breath Sounds Abdomen: Positive: Other (post op) - Labs and Meds Comprehensive Metabolic Panel 01/12/21 Range/Units 06:50 Sodium 138 (137-145) mmol/L Potassium 2.9 L* D (3.6-5.0) mmol/L Chloride 94.8 L (98-107) mmol/L Carbon Dioxide 26 D (22-30) mmol/L BUN 102 H (9-20) mg/dL Creatinine 8.3 H (0.8-1.3) mg/dL Glucose 139 H (75-100) mg/dL Calcium 8.1 L (8.4-10.2) mg/dL - Allied health notes Allied health notes reviewed: nursing
--- NOTE | 2021-01-12 13:26 | Progress Note ---
Assessment and Plan Acute hypoxemic respiratory failure, on mechanical ventilatory support. Severe Sepsis Peritonitis Acute small-bowel obstruction with tissue necrosis. End-stage renal disease, on dialysis. Hypertension. Crohn's disease. Gastroesophageal reflux disease. Heart failure with reduced ejection fraction. Hyperkalemia. Anemia that is normocytic. Lactic acidosis. Oropharyngeal dysphagia - digoxin level WNL - continue Robinul to 0.2mg IV q8h re: NPO status - discontinue Solumedrol - continue benadryl but re-evaluate in am - continue total parenteral nutrition - prn vasopressors for target MAP > 65 mmHg - continue wound care per RN/WCN - continue care as below otherwise; - continue to wean supplemental oxygen for target O2 sat's > 92% acutely - aspiration precautions - continue bronchodilators with pulmonary hygiene per RT - wean per pulmonary driven protocols otherwise - HD/UF per nephrology prescription for toxin and volume control - avoid nephrotoxins, renally dose all medications - continue accuchecks with glycemic control per SSI (While critically ill target blood glucose of 140-180 mg/dL; avoid hypoglycemia) - sedation prn for target RASS 0 to -1 - continue to avoid benzodiazepine's, reduce the possibility of delirium - complete AB's per ID rec's - prn analgesia per CPOT score - Maintenance of sleep-wake cycle, avoid delirium - enteral nutritional support at goal rate as tolerated (once cleared by surgeon) - G.I. & VTE prophylaxis - PT/OT/ROM exercises - continue mobility protocols for pressure ulcer prophylaxis - Monitor hemodynamics closely - continue other care per attending / other consultants - discharge planning ongoing concurrently .... Re-evaluate in am & prn ...... awaiting transfer to [facility] CONDITION: FAIR PROGNOSIS: GUARDED CODE STATUS: FULL CODE I have spent ( >35 ) minutes with the patient w/ >50% of the time spent counseling and/or coordinating care for this patient. Counseling topics and/or how time was spent coordinating patient's care is outlined in the impression and plan above. Subjective Date of service: 01/11/21 Principal diagnosis: Ac hypoxemic resp failure; Severe Sepsis; Peritonitis; Acute SBO; ESRD; CHF Interval history: Patient is seen today for: Ac hypoxemic resp failure; Severe Sepsis; Peritonitis; Acute SBO; ESRD on Dialysis; HTN; Crohn's disease; HFrEF Seen and examined at bedside; 24hour events reviewed; nursing and respiratory care staff consulted; no adverse overnight events reported to me; resting in bed; HD/UF ongoing; doing well ventilatory-paez; on 2 L NC; denies acute abd ominal or other pain; denies N/V/F/C Objective Vital Signs - 12hr 01/11/21 01/11/21 01/11/21 00:00 00:01 02:00 Temperature 98.1 F Pulse Rate 87 89 87 Respiratory 17 24 Rate Blood Pressure 160/76 175/83 O2 Sat by Pulse 95 96 Oximetry O2 Sat by Pulse Oximetry [ Anterior Bilateral Throughout] 01/11/21 01/11/21 01/11/21 02:10 02:11 03:34 Temperature 99.0 F Pulse Rate 80 80 Respiratory 16 Rate Blood Pressure 175/83 175/83 O2 Sat by Pulse Oximetry O2 Sat by Pulse Oximetry [ Anterior Bilateral Throughout] 01/11/21 01/11/21 01/11/21 04:01 04:37 06:01 Temperature Pulse Rate 75 75 Respiratory 18 Rate Blood Pressure 175/83 187/82 O2 Sat by Pulse 95 96 Oximetry O2 Sat by Pulse Oximetry [ Anterior Bilateral Throughout] 01/11/21 01/11/21 01/11/21 06:07 06:08 07:26 Temperature 98.6 F Pulse Rate 81 79 Respiratory Rate Blood Pressure 187/82 187/82 O2 Sat by Pulse Oximetry O2 Sat by Pulse Oximetry [ Anterior Bilateral Throughout] 01/11/21 01/11/21 01/11/21 07:49 08:00 08:50 Temperature 98.0 F Pulse Rate 83 83 Respiratory 15 Rate Blood Pressure 178/85 O2 Sat by Pulse 98 98 Oximetry O2 Sat by Pulse Oximetry [ Anterior Bilateral Throughout] 01/11/21 01/11/21 01/11/21 09:03 09:04 09:18 Temperature 97.9 F Pulse Rate 75 77 78 Respiratory 16 Rate Blood Pressure 177/85 177/85 178/89 O2 Sat by Pulse Oximetry O2 Sat by Pulse 97 Oximetry [ Anterior Bilateral Throughout] 01/11/21 01/11/21 01/11/21 09:22 09:24 09:30 Temperature Pulse Rate 75 80 75 Respiratory Rate Blood Pressure 180/89 180/89 180/89 O2 Sat by Pulse Oximetry O2 Sat by Pulse Oximetry [ Anterior Bilateral Throughout] 0501/11/21 01/11/21 09:45 10:00 10:01 Temperature Pulse Rate 77 77 83 Respiratory 14 Rate Blood Pressure 178/87 177/77 177/77 O2 Sat by Pulse 97 Oximetry O2 Sat by Pulse Oximetry [ Anterior Bilateral Throughout] 01/11/21 01/11/21 01/11/21 10:15 10:30 10:45 Temperature Pulse Rate 82 80 81 Respiratory Rate Blood Pressure 182/89 170/78 164/77 O2 Sat by Pulse Oximetry O2 Sat by Pulse Oximetry [ Anterior Bilateral Throughout] 01/11/21 01/11/21 11:00 11:15 Temperature Pulse Rate 80 80 Respiratory Rate Blood Pressure 146/99 160/77 O2 Sat by Pulse Oximetry O2 Sat by Pulse Oximetry [ Anterior Bilateral Throughout] Constitutional: no acute distress, other (elderly male with milldy increased respiratory effort) Eyes: non-icteric ENT: oropharynx moist, oropharyngeal exudate pre (improved), other (macroglossia improved) Neck: supple, no lymphadenopathy, no JVD Effort: normal Ascultation: Bilateral: diminished breath sounds, rhonchi Percussion: Bilateral: not dull Cardiovascular: regular rate and rhythm Gastrointestinal: hypoactive bowel sounds, soft, non-tender, non-distended (protuberant), other (Midline abdominal incision ) Integumentary: other (Midline abdominal incision ) Extremities: no cyanosis, no edema, pulses normal, no ischemia or petechiae Neurologic: non-focal exam (grossly), pupils equal and round, CN II-XII normal, motor strength normal and (sedated) Psychiatric: mood appropriate, affect normal CBC and BMP: 01/11/21 05:18 01/11/21 05:18 ABG, PT/INR, D-dimer: ABG ABG pH 7.345 pH Units (7.350-7.450) L 01/07/21 17:14 POC ABG pCO2 41.4 mmHg (32.0-48.0) 01/07/21 03:07 ABG pCO2 40.3 mm Hg 01/07/21 17:14 POC ABG pO2 94.5 mmHg (83-108) 01/07/21 03:07 ABG pO2 67.4 mm Hg (80.0-90.0) L 01/07/21 17:14 POC ABG HCO3 22.7 01/07/21 03:07 ABG O2 Saturation 94.3 % (95.0-99.0) L 01/07/21 17:14 PT/INR, D-dimer PT 16.9 Sec. (12.2-14.9) H 01/01/21 12:45 INR 1.39 (0.87-1.13) H 01/01/21 12:45 Abnormal lab findings: Abnormal Labs 12/22/20 12/22/20 12/22/20 14:38 14:38 14:38 WBC RBC Hgb 11.2 L Hct 35.0 L MCV MCHC RDW 16.7 H Plt Count Lymph % (Auto) [place] % (Auto) Lymph # (Auto) [place] # (Auto) Seg Neutrophils % Seg Neuts % (Manual) 94.0 H Lymphocytes % (Manual) 5.0 L Monocytes % (Manual) Seg Neutrophils # Seg Neutrophils # Man Lymphocytes # (Manual) 0.3 L Monocytes # (Manual) PT INR ABG pH POC ABG pCO2 POC ABG pO2 ABG pO2 ABG HCO3 ABG O2 Saturation ABG Base Excess ABG Hemoglobin ABG Oxyhemoglobin ABG Sodium ABG Potassium ABG Chloride ABG Glucose Oxyhemoglobin Sodium Potassium Chloride Carbon Dioxide BUN 58 H Creatinine 13.2 H Glucose 113 H POC Glucose Lactic Acid 3.60 H* Calcium Phosphorus Magnesium Total Bilirubin 1.30 H AST ALT Alkaline Phosphatase 155 H Total Protein Albumin Triglycerides Arterial Blood Glucose Arterial Blood Ionized Calcium Digoxin Crossmatch 12/22/20 12/22/20 12/23/20 16:26 17:47 05:22 WBC RBC Hgb Hct MCV MCHC RDW Plt Count Lymph % (Auto) [place] % (Auto) Lymph # (Auto) [place] # (Auto) Seg Neutrophils % Seg Neuts % (Manual) Lymphocytes % (Manual) Monocytes % (Manual) Seg Neutrophils # Seg Neutrophils # Man Lymphocytes # (Manual) Monocytes # (Manual) PT INR ABG pH POC ABG pCO2 POC ABG pO2 ABG pO2 ABG HCO3 ABG O2 Saturation ABG Base Excess ABG Hemoglobin ABG Oxyhemoglobin ABG Sodium ABG Potassium ABG Chloride ABG Glucose Oxyhemoglobin Sodium Potassium Chloride Carbon Dioxide BUN Creatinine Glucose POC Glucose Lactic Acid 2.80 H* 3.10 H* 2.30 H* Calcium Phosphorus Magnesium Total Bilirubin AST ALT Alkaline Phosphatase Total Protein Albumin Triglycerides Arterial Blood Glucose Arterial Blood Ionized Calcium Digoxin Crossmatch 12/23/20 12/23/20 12/23/20 05:22 05:22 06:35 WBC 12.1 H RBC Hgb 11.0 L Hct 33.7 L MCV MCHC RDW 16.9 H Plt Count Lymph % (Auto) [place] % (Auto) Lymph # (Auto) [place] # (Auto) Seg Neutrophils % Seg Neuts % (Manual) 93.0 H Lymphocytes % (Manual) 1.0 L Monocytes % (Manual) Seg Neutrophils # Seg Neutrophils # Man 11.3 H Lymphocytes # (Manual) 0.1 L Monocytes # (Manual) PT INR ABG pH POC ABG pCO2 POC ABG pO2 ABG pO2 ABG HCO3 ABG O2 Saturation ABG Base Excess ABG Hemoglobin ABG Oxyhemoglobin ABG Sodium ABG Potassium ABG Chloride ABG Glucose Oxyhemoglobin Sodium Potassium 5.7 H D Chloride Carbon Dioxide BUN 73 H Creatinine 14.2 H Glucose POC Glucose Lactic Acid 2.30 H* Calcium 7.9 L Phosphorus Magnesium Total Bilirubin 1.40 H AST 119 H ALT 130 H Alkaline Phosphatase 183 H Total Protein 6.1 L Albumin 3.6 L Triglycerides Arterial Blood Glucose Arterial Blood Ionized Calcium Digoxin Crossmatch 12/23/20 12/23/20 12/23/20 11:40 13:53 16:47 WBC RBC Hgb 10.0 L Hct 30.4 L MCV MCHC RDW Plt Count Lymph % (Auto) [place] % (Auto) Lymph # (Auto) [place] # (Auto) Seg Neutrophils % Seg Neuts % (Manual) Lymphocytes % (Manual) Monocytes % (Manual) Seg Neutrophils # Seg Neutrophils # Man Lymphocytes # (Manual) Monocytes # (Manual) PT INR ABG pH POC ABG pCO2 POC ABG pO2 137.5 H ABG pO2 ABG HCO3 ABG O2 Saturation ABG Base Excess ABG Hemoglobin 9.7 L ABG Oxyhemoglobin ABG Sodium 134.1 L ABG Potassium 6.6 H ABG Chloride ABG Glucose 103 H Oxyhemoglobin Sodium Potassium Chloride Carbon Dioxide BUN Creatinine Glucose POC Glucose Lactic Acid Calcium Phosphorus Magnesium Total Bilirubin AST ALT Alkaline Phosphatase Total Protein Albumin Triglycerides Arterial Blood Glucose 103 H Arterial Blood Ionized Calcium 3.8 L Digoxin Crossmatch See Detail 12/23/20 12/23/20 12/24/20 20:35 20:40 01:20 WBC RBC Hgb Hct MCV MCHC RDW Plt Count Lymph % (Auto) [place] % (Auto) Lymph # (Auto) [place] # (Auto) Seg Neutrophils % Seg Neuts % (Manual) Lymphocytes % (Manual) Monocytes % (Manual) Seg Neutrophils # Seg Neutrophils # Man Lymphocytes # (Manual) Monocytes # (Manual) PT INR ABG pH 7.252 L POC ABG pCO2 POC ABG pO2 ABG pO2 50.1 L ABG HCO3 ABG O2 Saturation 81.1 L ABG Base Excess -5.9 L ABG Hemoglobin 12.1 L ABG Oxyhemoglobin ABG Sodium ABG Potassium ABG Chloride ABG Glucose Oxyhemoglobin 78.6 L Sodium 134 L Potassium 6.9 H* D 6.3 H* Chloride Carbon Dioxide 18 L 20 L BUN 87 H 91 H Creatinine 15.3 H 15.3 H Glucose 103 H POC Glucose Lactic Acid Calcium 6.9 L 7.5 L Phosphorus Magnesium Total Bilirubin AST ALT Alkaline Phosphatase Total Protein Albumin Triglycerides Arterial Blood Glucose Arterial Blood Ionized Calcium Digoxin Crossmatch 12/24/20 12/24/20 12/24/20 04:00 10:29 10:29 WBC RBC 3.49 L Hgb 10.5 L Hct 31.2 L MCV MCHC RDW 17.5 H Plt Count 124 L Lymph % (Auto) 3.7 L [place] % (Auto) 9.8 H Lymph # (Auto) 0.2 L [place] # (Auto) Seg Neutrophils % 85.9 H Seg Neuts % (Manual) Lymphocytes % (Manual) Monocytes % (Manual) Seg Neutrophils # Seg Neutrophils # Man Lymphocytes # (Manual) Monocytes # (Manual) PT INR ABG pH POC ABG pCO2 28.1 L POC ABG pO2 ABG pO2 ABG HCO3 ABG O2 Saturation ABG Base Excess ABG Hemoglobin ABG Oxyhemoglobin ABG Sodium 133.9 L ABG Potassium 5.3 H ABG Chloride 108.0 H ABG Glucose Oxyhemoglobin Sodium Potassium 5.6 H Chloride Carbon Dioxide 19 L BUN 99 H Creatinine 16.9 H Glucose 52 L POC Glucose Lactic Acid Calcium 7.6 L Phosphorus Magnesium Total Bilirubin 3.50 H AST 67 H ALT 71 H Alkaline Phosphatase Total Protein 3.5 L D Albumin 2.1 L Triglycerides Arterial Blood Glucose Arterial Blood Ionized Calcium 4.0 L Digoxin Crossmatch 12/25/20 12/25/20 12/25/20 03:33 04:00 04:00 WBC 3.8 L RBC 2.90 L Hgb 8.6 L Hct 25.7 L MCV MCHC RDW 16.7 H Plt Count 113 L Lymph % (Auto) [place] % (Auto) Lymph # (Auto) [place] # (Auto) Seg Neutrophils % Seg Neuts % (Manual) Lymphocytes % (Manual) Monocytes % (Manual) Seg Neutrophils # Seg Neutrophils # Man Lymphocytes # (Manual) Monocytes # (Manual) PT INR ABG pH 7.544 H POC ABG pCO2 28.2 L POC ABG pO2 62.8 L ABG pO2 ABG HCO3 ABG O2 Saturation ABG Base Excess ABG Hemoglobin 9.3 L ABG Oxyhemoglobin 93.0 L ABG Sodium 130.3 L ABG Potassium ABG Chloride ABG Glucose 97 H Oxyhemoglobin Sodium Potassium Chloride Carbon Dioxide BUN 62 H Creatinine 11.4 H Glucose POC Glucose Lactic Acid Calcium 7.7 L Phosphorus 5.00 H Magnesium Total Bilirubin AST ALT Alkaline Phosphatase Total Protein Albumin Triglycerides Arterial Blood Glucose 97 H Arterial Blood Ionized Calcium 3.9 L Digoxin Crossmatch 12/26/20 12/26/20 12/27/20 04:46 Unknown 03:40 WBC 4.1 L RBC 2.61 L Hgb 7.8 L Hct 23.4 L MCV MCHC RDW 17.1 H Plt Count 119 L Lymph % (Auto) 5.3 L [place] % (Auto) 10.6 H Lymph # (Auto) 0.2 L [place] # (Auto) Seg Neutrophils % 78.8 H Seg Neuts % (Manual) Lymphocytes % (Manual) Monocytes % (Manual) Seg Neutrophils # Seg Neutrophils # Man Lymphocytes # (Manual) Monocytes # (Manual) PT INR ABG pH 7.333 L 7.332 L POC ABG pCO2 POC ABG pO2 ABG pO2 ABG HCO3 26.9 H ABG O2 Saturation ABG Base Excess -2.4 L ABG Hemoglobin 6.8 L 7.2 L ABG Oxyhemoglobin ABG Sodium ABG Potassium ABG Chloride ABG Glucose Oxyhemoglobin 93.0 L 93.1 L Sodium Potassium Chloride Carbon Dioxide BUN Creatinine Glucose POC Glucose Lactic Acid Calcium Phosphorus Magnesium Total Bilirubin AST ALT Alkaline Phosphatase Total Protein Albumin Triglycerides Arterial Blood Glucose Arterial Blood Ionized Calcium Digoxin Crossmatch 12/27/20 12/27/20 12/27/20 06:40 06:40 11:22 WBC 4.4 L RBC 2.49 L Hgb 7.4 L Hct 22.4 L MCV MCHC RDW 17.1 H Plt Count 111 L Lymph % (Auto) 6.7 L [place] % (Auto) 12.6 H Lymph # (Auto) 0.3 L [place] # (Auto) Seg Neutrophils % 77.6 H Seg Neuts % (Manual) Lymphocytes % (Manual) Monocytes % (Manual) Seg Neutrophils # Seg Neutrophils # Man Lymphocytes # (Manual) Monocytes # (Manual) PT INR ABG pH POC ABG pCO2 POC ABG pO2 ABG pO2 ABG HCO3 ABG O2 Saturation ABG Base Excess ABG Hemoglobin ABG Oxyhemoglobin ABG Sodium ABG Potassium ABG Chloride ABG Glucose Oxyhemoglobin Sodium Potassium Chloride Carbon Dioxide BUN 64 H Creatinine 9.8 H Glucose 147 H POC Glucose 134 H Lactic Acid Calcium 8.3 L Phosphorus 5.00 H Magnesium Total Bilirubin 3.70 H AST 72 H ALT Alkaline Phosphatase 142 H Total Protein 5.1 L D Albumin 2.9 L Triglycerides Arterial Blood Glucose Arterial Blood Ionized Calcium Digoxin Crossmatch 12/27/20 12/27/20 12/28/20 17:29 23:31 03:09 WBC RBC Hgb Hct MCV MCHC RDW Plt Count Lymph % (Auto) [place] % (Auto) Lymph # (Auto) [place] # (Auto) Seg Neutrophils % Seg Neuts % (Manual) Lymphocytes % (Manual) Monocytes % (Manual) Seg Neutrophils # Seg Neutrophils # Man Lymphocytes # (Manual) Monocytes # (Manual) PT INR ABG pH 7.474 H POC ABG pCO2 POC ABG pO2 ABG pO2 ABG HCO3 ABG O2 Saturation ABG Base Excess ABG Hemoglobin 7.8 L ABG Oxyhemoglobin ABG Sodium ABG Potassium ABG Chloride ABG Glucose Oxyhemoglobin Sodium Potassium Chloride Carbon Dioxide BUN Creatinine Glucose POC Glucose 121 H 131 H Lactic Acid Calcium Phosphorus Magnesium Total Bilirubin AST ALT Alkaline Phosphatase Total Protein Albumin Triglycerides Arterial Blood Glucose Arterial Blood Ionized Calcium Digoxin Crossmatch 12/28/20 12/28/20 12/28/20 05:37 05:40 05:40 WBC 4.3 L RBC 2.40 L Hgb 7.2 L Hct 21.5 L MCV MCHC RDW 17.4 H Plt Count 112 L Lymph % (Auto) 6.5 L [place] % (Auto) 16.7 H Lymph # (Auto) 0.3 L [place] # (Auto) Seg Neutrophils % 71.1 H Seg Neuts % (Manual) Lymphocytes % (Manual) Monocytes % (Manual) Seg Neutrophils # Seg Neutrophils # Man Lymphocytes # (Manual) Monocytes # (Manual) PT INR ABG pH POC ABG pCO2 POC ABG pO2 ABG pO2 ABG HCO3 ABG O2 Saturation ABG Base Excess ABG Hemoglobin ABG Oxyhemoglobin ABG Sodium ABG Potassium ABG Chloride ABG Glucose Oxyhemoglobin Sodium Potassium Chloride Carbon Dioxide BUN 85 H Creatinine 11.5 H Glucose 132 H POC Glucose 121 H Lactic Acid Calcium 8.2 L Phosphorus Magnesium 2.40 H Total Bilirubin 3.80 H AST 70 H ALT Alkaline Phosphatase 176 H Total Protein 5.0 L Albumin 2.9 L Triglycerides Arterial Blood Glucose Arterial Blood Ionized Calcium Digoxin Crossmatch 12/28/20 12/28/20 12/28/20 11:34 15:00 17:35 WBC RBC Hgb Hct MCV MCHC RDW Plt Count Lymph % (Auto) [place] % (Auto) Lymph # (Auto) [place] # (Auto) Seg Neutrophils % Seg Neuts % (Manual) Lymphocytes % (Manual) Monocytes % (Manual) Seg Neutrophils # Seg Neutrophils # Man Lymphocytes # (Manual) Monocytes # (Manual) PT INR ABG pH 7.461 H POC ABG pCO2 POC ABG pO2 72.2 L ABG pO2 ABG HCO3 ABG O2 Saturation ABG Base Excess ABG Hemoglobin 8.2 L ABG Oxyhemoglobin 93.6 L ABG Sodium 134.1 L ABG Potassium 3.2 L ABG Chloride ABG Glucose 135 H Oxyhemoglobin Sodium Potassium Chloride Carbon Dioxide BUN Creatinine Glucose POC Glucose 137 H 144 H Lactic Acid Calcium Phosphorus Magnesium Total Bilirubin AST ALT Alkaline Phosphatase Total Protein Albumin Triglycerides Arterial Blood Glucose 135 H Arterial Blood Ionized Calcium 4.4 L Digoxin Crossmatch 12/28/20 12/28/20 12/29/20 19:44 Unknown 00:21 WBC RBC Hgb Hct MCV MCHC RDW Plt Count Lymph % (Auto) [place] % (Auto) Lymph # (Auto) [place] # (Auto) Seg Neutrophils % Seg Neuts % (Manual) Lymphocytes % (Manual) Monocytes % (Manual) Seg Neutrophils # Seg Neutrophils # Man Lymphocytes # (Manual) Monocytes # (Manual) PT INR ABG pH 7.474 H POC ABG pCO2 POC ABG pO2 ABG pO2 ABG HCO3 ABG O2 Saturation ABG Base Excess ABG Hemoglobin 7.8 L ABG Oxyhemoglobin ABG Sodium 133.2 L ABG Potassium ABG Chloride ABG Glucose 139 H Oxyhemoglobin Sodium 135 L Potassium Chloride 96.6 L Carbon Dioxide BUN 47 H Creatinine 7.4 H Glucose 130 H POC Glucose 142 H Lactic Acid Calcium 8.3 L Phosphorus Magnesium Total Bilirubin AST ALT Alkaline Phosphatase Total Protein Albumin Triglycerides Arterial Blood Glucose 139 H Arterial Blood Ionized Calcium 4.3 L Digoxin Crossmatch 12/29/20 12/29/20 12/29/20 05:16 05:16 05:26 WBC RBC 2.53 L Hgb 7.7 L Hct 22.8 L MCV MCHC RDW 17.0 H Plt Count 130 L Lymph % (Auto) [place] % (Auto) Lymph # (Auto) [place] # (Auto) Seg Neutrophils % Seg Neuts % (Manual) 79.0 H Lymphocytes % (Manual) 9.0 L Monocytes % (Manual) Seg Neutrophils # Seg Neutrophils # Man Lymphocytes # (Manual) 0.6 L Monocytes # (Manual) PT INR ABG pH POC ABG pCO2 POC ABG pO2 ABG pO2 ABG HCO3 ABG O2 Saturation ABG Base Excess ABG Hemoglobin ABG Oxyhemoglobin ABG Sodium ABG Potassium ABG Chloride ABG Glucose Oxyhemoglobin Sodium Potassium 3.4 L Chloride 96.6 L Carbon Dioxide BUN 59 H Creatinine 8.3 H Glucose 127 H POC Glucose 141 H Lactic Acid Calcium 8.2 L Phosphorus Magnesium Total Bilirubin 3.00 H AST 88 H ALT Alkaline Phosphatase 188 H Total Protein 5.1 L Albumin 2.8 L Triglycerides Arterial Blood Glucose Arterial Blood Ionized Calcium Digoxin Crossmatch 12/29/20 12/29/20 12/29/20 11:33 17:29 23:22 WBC RBC Hgb Hct MCV MCHC RDW Plt Count Lymph % (Auto) [place] % (Auto) Lymph # (Auto) [place] # (Auto) Seg Neutrophils % Seg Neuts % (Manual) Lymphocytes % (Manual) Monocytes % (Manual) Seg Neutrophils # Seg Neutrophils # Man Lymphocytes # (Manual) Monocytes # (Manual) PT INR ABG pH POC ABG pCO2 POC ABG pO2 ABG pO2 ABG HCO3 ABG O2 Saturation ABG Base Excess ABG Hemoglobin ABG Oxyhemoglobin ABG Sodium ABG Potassium ABG Chloride ABG Glucose Oxyhemoglobin Sodium Potassium Chloride Carbon Dioxide BUN Creatinine Glucose POC Glucose 144 H 130 H 117 H Lactic Acid Calcium Phosphorus Magnesium Total Bilirubin AST ALT Alkaline Phosphatase Total Protein Albumin Triglycerides Arterial Blood Glucose Arterial Blood Ionized Calcium Digoxin Crossmatch 12/30/20 12/30/20 12/30/20 05:23 08:15 09:00 WBC RBC Hgb Hct MCV MCHC RDW Plt Count Lymph % (Auto) [place] % (Auto) Lymph # (Auto) [place] # (Auto) Seg Neutrophils % Seg Neuts % (Manual) Lymphocytes % (Manual) Monocytes % (Manual) Seg Neutrophils # Seg Neutrophils # Man Lymphocytes # (Manual) Monocytes # (Manual) PT INR ABG pH POC ABG pCO2 POC ABG pO2 ABG pO2 ABG HCO3 ABG O2 Saturation ABG Base Excess ABG Hemoglobin ABG Oxyhemoglobin ABG Sodium ABG Potassium ABG Chloride ABG Glucose Oxyhemoglobin Sodium 135 L Potassium Chloride 95.9 L Carbon Dioxide BUN 85 H Creatinine 10.6 H Glucose 128 H POC Glucose 135 H 127 H Lactic Acid Calcium 8.3 L Phosphorus Magnesium Total Bilirubin 2.40 H AST 85 H ALT Alkaline Phosphatase 216 H Total Protein 5.3 L Albumin 2.6 L Triglycerides 155 H Arterial Blood Glucose Arterial Blood Ionized Calcium Digoxin Crossmatch 12/30/20 12/30/20 12/30/20 09:00 11:53 15:49 WBC RBC 2.61 L Hgb 7.8 L Hct 23.7 L MCV MCHC RDW 17.3 H Plt Count Lymph % (Auto) [place] % (Auto) Lymph # (Auto) [place] # (Auto) Seg Neutrophils % Seg Neuts % (Manual) Lymphocytes % (Manual) Monocytes % (Manual) Seg Neutrophils # Seg Neutrophils # Man Lymphocytes # (Manual) Monocytes # (Manual) PT INR ABG pH POC ABG pCO2 POC ABG pO2 ABG pO2 ABG HCO3 ABG O2 Saturation ABG Base Excess ABG Hemoglobin ABG Oxyhemoglobin ABG Sodium ABG Potassium ABG Chloride ABG Glucose Oxyhemoglobin Sodium Potassium Chloride Carbon Dioxide BUN Creatinine Glucose POC Glucose 155 H 146 H Lactic Acid Calcium Phosphorus Magnesium Total Bilirubin AST ALT Alkaline Phosphatase Total Protein Albumin Triglycerides Arterial Blood Glucose Arterial Blood Ionized Calcium Digoxin Crossmatch 12/30/20 12/30/20 12/31/20 17:53 23:45 03:56 WBC RBC Hgb Hct MCV MCHC RDW Plt Count Lymph % (Auto) [place] % (Auto) Lymph # (Auto) [place] # (Auto) Seg Neutrophils % Seg Neuts % (Manual) Lymphocytes % (Manual) Monocytes % (Manual) Seg Neutrophils # Seg Neutrophils # Man Lymphocytes # (Manual) Monocytes # (Manual) PT INR ABG pH POC ABG pCO2 POC ABG pO2 49.4 L ABG pO2 ABG HCO3 ABG O2 Saturation ABG Base Excess ABG Hemoglobin 10.3 L ABG Oxyhemoglobin 84.2 L ABG Sodium 133.1 L ABG Potassium ABG Chloride ABG Glucose 173 H Oxyhemoglobin Sodium Potassium Chloride Carbon Dioxide BUN Creatinine Glucose POC Glucose 139 H 173 H Lactic Acid Calcium Phosphorus Magnesium Total Bilirubin AST ALT Alkaline Phosphatase Total Protein Albumin Triglycerides Arterial Blood Glucose 173 H Arterial Blood Ionized Calcium Digoxin Crossmatch 12/31/20 12/31/20 12/31/20 05:07 06:51 06:51 WBC 20.3 H RBC 3.32 L Hgb 9.8 L Hct 30.3 L D MCV MCHC RDW 17.3 H Plt Count Lymph % (Auto) [place] % (Auto) Lymph # (Auto) [place] # (Auto) Seg Neutrophils % Seg Neuts % (Manual) 87.0 H Lymphocytes % (Manual) 10.0 L Monocytes % (Manual) Seg Neutrophils # Seg Neutrophils # Man 17.7 H Lymphocytes # (Manual) Monocytes # (Manual) PT INR ABG pH POC ABG pCO2 POC ABG pO2 ABG pO2 ABG HCO3 ABG O2 Saturation ABG Base Excess ABG Hemoglobin ABG Oxyhemoglobin ABG Sodium ABG Potassium ABG Chloride ABG Glucose Oxyhemoglobin Sodium Potassium 5.2 H D Chloride Carbon Dioxide BUN 62 H Creatinine 8.4 H Glucose 116 H POC Glucose 120 H Lactic Acid Calcium Phosphorus Magnesium 1.60 L Total Bilirubin AST ALT Alkaline Phosphatase Total Protein Albumin Triglycerides Arterial Blood Glucose Arterial Blood Ionized Calcium Digoxin Crossmatch 12/31/20 12/31/20 12/31/20 09:38 12:19 12:22 WBC RBC Hgb Hct MCV MCHC RDW Plt Count Lymph % (Auto) [place] % (Auto) Lymph # (Auto) [place] # (Auto) Seg Neutrophils % Seg Neuts % (Manual) Lymphocytes % (Manual) Monocytes % (Manual) Seg Neutrophils # Seg Neutrophils # Man Lymphocytes # (Manual) Monocytes # (Manual) PT INR ABG pH POC ABG pCO2 POC ABG pO2 ABG pO2 354.0 H ABG HCO3 ABG O2 Saturation 99.6 H ABG Base Excess ABG Hemoglobin 9.1 L ABG Oxyhemoglobin ABG Sodium ABG Potassium ABG Chloride ABG Glucose Oxyhemoglobin Sodium Potassium 5.2 H Chloride Carbon Dioxide BUN Creatinine Glucose POC Glucose 132 H Lactic Acid Calcium Phosphorus Magnesium Total Bilirubin AST ALT Alkaline Phosphatase Total Protein Albumin Triglycerides Arterial Blood Glucose Arterial Blood Ionized Calcium Digoxin Crossmatch 12/31/20 01/01/21 01/01/21 23:23 03:03 05:04 WBC RBC Hgb Hct MCV MCHC RDW Plt Count Lymph % (Auto) [place] % (Auto) Lymph # (Auto) [place] # (Auto) Seg Neutrophils % Seg Neuts % (Manual) Lymphocytes % (Manual) Monocytes % (Manual) Seg Neutrophils # Seg Neutrophils # Man Lymphocytes # (Manual) Monocytes # (Manual) PT INR ABG pH POC ABG pCO2 POC ABG pO2 79.6 L ABG pO2 ABG HCO3 ABG O2 Saturation ABG Base Excess ABG Hemoglobin 9.2 L ABG Oxyhemoglobin ABG Sodium 131.6 L ABG Potassium 5.8 H ABG Chloride ABG Glucose 177 H Oxyhemoglobin Sodium Potassium Chloride Carbon Dioxide BUN Creatinine Glucose POC Glucose 174 H 167 H Lactic Acid Calcium Phosphorus Magnesium Total Bilirubin AST ALT Alkaline Phosphatase Total Protein Albumin Triglycerides Arterial Blood Glucose 177 H Arterial Blood Ionized Calcium Digoxin Crossmatch 01/01/21 01/01/21 01/01/21 07:31 07:31 11:31 WBC 26.1 H RBC 2.95 L Hgb 8.6 L Hct 27.1 L MCV MCHC RDW 18.2 H Plt Count Lymph % (Auto) [place] % (Auto) Lymph # (Auto) [place] # (Auto) Seg Neutrophils % Seg Neuts % (Manual) 96.0 H Lymphocytes % (Manual) 4.0 L Monocytes % (Manual) Seg Neutrophils # Seg Neutrophils # Man 25.1 H Lymphocytes # (Manual) 1.0 L Monocytes # (Manual) PT INR ABG pH POC ABG pCO2 POC ABG pO2 ABG pO2 ABG HCO3 ABG O2 Saturation ABG Base Excess ABG Hemoglobin ABG Oxyhemoglobin ABG Sodium ABG Potassium ABG Chloride ABG Glucose Oxyhemoglobin Sodium Potassium 6.0 H Chloride Carbon Dioxide 21 L BUN 89 H Creatinine 10.5 H Glucose 179 H POC Glucose Lactic Acid Calcium Phosphorus Magnesium Total Bilirubin AST ALT Alkaline Phosphatase Total Protein Albumin Triglycerides Arterial Blood Glucose Arterial Blood Ionized Calcium Digoxin Crossmatch See Detail 01/01/21 01/01/21 01/01/21 11:51 12:45 16:52 WBC RBC Hgb Hct MCV MCHC RDW Plt Count Lymph % (Auto) [place] % (Auto) Lymph # (Auto) [place] # (Auto) Seg Neutrophils % Seg Neuts % (Manual) Lymphocytes % (Manual) Monocytes % (Manual) Seg Neutrophils # Seg Neutrophils # Man Lymphocytes # (Manual) Monocytes # (Manual) PT 16.9 H INR 1.39 H ABG pH POC ABG pCO2 POC ABG pO2 ABG pO2 ABG HCO3 ABG O2 Saturation ABG Base Excess ABG Hemoglobin ABG Oxyhemoglobin ABG Sodium ABG Potassium ABG Chloride ABG Glucose Oxyhemoglobin Sodium Potassium Chloride Carbon Dioxide BUN Creatinine Glucose POC Glucose 157 H 177 H Lactic Acid Calcium Phosphorus Magnesium Total Bilirubin AST ALT Alkaline Phosphatase Total Protein Albumin Triglycerides Arterial Blood Glucose Arterial Blood Ionized Calcium Digoxin Crossmatch 01/01/21 01/01/21 01/01/21 17:58 17:58 20:12 WBC 26.9 H RBC 3.14 L Hgb 9.3 L Hct 29.6 L MCV MCHC RDW 17.5 H Plt Count Lymph % (Auto) [place] % (Auto) Lymph # (Auto) [place] # (Auto) Seg Neutrophils % Seg Neuts % (Manual) 84.0 H Lymphocytes % (Manual) 4.0 L Monocytes % (Manual) 12.0 H Seg Neutrophils # Seg Neutrophils # Man 22.6 H Lymphocytes # (Manual) 1.1 L Monocytes # (Manual) 3.2 H PT INR ABG pH POC ABG pCO2 POC ABG pO2 ABG pO2 ABG HCO3 ABG O2 Saturation ABG Base Excess ABG Hemoglobin ABG Oxyhemoglobin ABG Sodium ABG Potassium ABG Chloride ABG Glucose Oxyhemoglobin Sodium 136 L Potassium 6.2 H* Chloride Carbon Dioxide 21 L BUN 92 H Creatinine 10.8 H Glucose 171 H POC Glucose 288 H Lactic Acid Calcium Phosphorus Magnesium Total Bilirubin 2.10 H AST 223 H ALT 100 H Alkaline Phosphatase 206 H Total Protein 4.8 L Albumin 1.9 L Triglycerides Arterial Blood Glucose Arterial Blood Ionized Calcium Digoxin Crossmatch 01/02/21 01/02/21 01/02/21 00:12 00:45 03:05 WBC RBC Hgb Hct MCV MCHC RDW Plt Count Lymph % (Auto) [place] % (Auto) Lymph # (Auto) [place] # (Auto) Seg Neutrophils % Seg Neuts % (Manual) Lymphocytes % (Manual) Monocytes % (Manual) Seg Neutrophils # Seg Neutrophils # Man Lymphocytes # (Manual) Monocytes # (Manual) PT INR ABG pH POC ABG pCO2 POC ABG pO2 81.8 L ABG pO2 ABG HCO3 ABG O2 Saturation ABG Base Excess ABG Hemoglobin 8.0 L ABG Oxyhemoglobin ABG Sodium 129.8 L ABG Potassium 5.4 H ABG Chloride ABG Glucose 257 H Oxyhemoglobin Sodium 136 L Potassium 5.8 H Chloride 96.6 L Carbon Dioxide BUN 95 H Creatinine 11.2 H Glucose 238 H POC Glucose 223 H Lactic Acid Calcium Phosphorus Magnesium Total Bilirubin AST ALT Alkaline Phosphatase Total Protein Albumin Triglycerides Arterial Blood Glucose 257 H Arterial Blood Ionized Calcium 4.0 L Digoxin Crossmatch 01/02/21 01/02/21 01/02/21 06:25 08:00 08:00 WBC 17.5 H RBC 2.31 L Hgb 6.7 L Hct 22.1 L D MCV 96 H MCHC 30 L RDW 18.4 H Plt Count Lymph % (Auto) [place] % (Auto) Lymph # (Auto) [place] # (Auto) Seg Neutrophils % Seg Neuts % (Manual) Lymphocytes % (Manual) Monocytes % (Manual) Seg Neutrophils # Seg Neutrophils # Man Lymphocytes # (Manual) Monocytes # (Manual) PT INR ABG pH POC ABG pCO2 POC ABG pO2 ABG pO2 ABG HCO3 ABG O2 Saturation ABG Base Excess ABG Hemoglobin ABG Oxyhemoglobin ABG Sodium ABG Potassium ABG Chloride ABG Glucose Oxyhemoglobin Sodium 134 L Potassium 5.3 H Chloride 92.9 L Carbon Dioxide BUN 101 H Creatinine 10.9 H Glucose 560 H* POC Glucose 239 H Lactic Acid Calcium 7.6 L Phosphorus 6.50 H Magnesium Total Bilirubin AST ALT Alkaline Phosphatase Total Protein Albumin Triglycerides Arterial Blood Glucose Arterial Blood Ionized Calcium Digoxin Crossmatch 01/02/21 01/02/21 01/02/21 11:26 15:00 17:57 WBC RBC Hgb Hct MCV MCHC RDW Plt Count Lymph % (Auto) [place] % (Auto) Lymph # (Auto) [place] # (Auto) Seg Neutrophils % Seg Neuts % (Manual) Lymphocytes % (Manual) Monocytes % (Manual) Seg Neutrophils # Seg Neutrophils # Man Lymphocytes # (Manual) Monocytes # (Manual) PT INR ABG pH POC ABG pCO2 POC ABG pO2 ABG pO2 ABG HCO3 ABG O2 Saturation ABG Base Excess ABG Hemoglobin ABG Oxyhemoglobin ABG Sodium ABG Potassium ABG Chloride ABG Glucose Oxyhemoglobin Sodium Potassium Chloride Carbon Dioxide BUN Creatinine Glucose 241 H POC Glucose 205 H 272 H Lactic Acid Calcium Phosphorus Magnesium Total Bilirubin AST ALT Alkaline Phosphatase Total Protein Albumin Triglycerides Arterial Blood Glucose Arterial Blood Ionized Calcium Digoxin Crossmatch 01/02/21 01/02/21 01/03/21 23:25 23:43 03:45 WBC RBC Hgb Hct MCV MCHC RDW Plt Count Lymph % (Auto) [place] % (Auto) Lymph # (Auto) [place] # (Auto) Seg Neutrophils % Seg Neuts % (Manual) Lymphocytes % (Manual) Monocytes % (Manual) Seg Neutrophils # Seg Neutrophils # Man Lymphocytes # (Manual) Monocytes # (Manual) PT INR ABG pH POC ABG pCO2 48.3 H POC ABG pO2 134.4 H 79.7 L ABG pO2 ABG HCO3 ABG O2 Saturation ABG Base Excess ABG Hemoglobin 7.7 L 8.6 L ABG Oxyhemoglobin ABG Sodium 131.8 L 130.4 L ABG Potassium ABG Chloride 97.0 L ABG Glucose 218 H 238 H Oxyhemoglobin Sodium Potassium Chloride Carbon Dioxide BUN Creatinine Glucose POC Glucose 218 H Lactic Acid Calcium Phosphorus Magnesium Total Bilirubin AST ALT Alkaline Phosphatase Total Protein Albumin Triglycerides Arterial Blood Glucose 218 H 238 H Arterial Blood Ionized Calcium 4.1 L 4.0 L Digoxin Crossmatch 01/03/21 01/03/21 01/03/21 04:37 04:37 05:39 WBC 15.2 H RBC 2.38 L Hgb 7.3 L Hct 21.6 L MCV MCHC RDW 16.6 H Plt Count Lymph % (Auto) [place] % (Auto) Lymph # (Auto) [place] # (Auto) Seg Neutrophils % Seg Neuts % (Manual) Lymphocytes % (Manual) Monocytes % (Manual) Seg Neutrophils # Seg Neutrophils # Man Lymphocytes # (Manual) Monocytes # (Manual) PT INR ABG pH POC ABG pCO2 POC ABG pO2 ABG pO2 ABG HCO3 ABG O2 Saturation ABG Base Excess ABG Hemoglobin ABG Oxyhemoglobin ABG Sodium ABG Potassium ABG Chloride ABG Glucose Oxyhemoglobin Sodium 136 L Potassium Chloride 94.5 L Carbon Dioxide BUN 69 H Creatinine 8.0 H Glucose 219 H POC Glucose 222 H Lactic Acid Calcium 7.8 L Phosphorus 4.80 H D Magnesium Total Bilirubin AST ALT Alkaline Phosphatase Total Protein Albumin Triglycerides Arterial Blood Glucose Arterial Blood Ionized Calcium Digoxin Crossmatch 01/03/21 01/03/21 01/03/21 11:29 18:49 23:37 WBC RBC Hgb Hct MCV MCHC RDW Plt Count Lymph % (Auto) [place] % (Auto) Lymph # (Auto) [place] # (Auto) Seg Neutrophils % Seg Neuts % (Manual) Lymphocytes % (Manual) Monocytes % (Manual) Seg Neutrophils # Seg Neutrophils # Man Lymphocytes # (Manual) Monocytes # (Manual) PT INR ABG pH POC ABG pCO2 POC ABG pO2 ABG pO2 ABG HCO3 ABG O2 Saturation ABG Base Excess ABG Hemoglobin ABG Oxyhemoglobin ABG Sodium ABG Potassium ABG Chloride ABG Glucose Oxyhemoglobin Sodium Potassium Chloride Carbon Dioxide BUN Creatinine Glucose POC Glucose 232 H 129 H 140 H Lactic Acid Calcium Phosphorus Magnesium Total Bilirubin AST ALT Alkaline Phosphatase Total Protein Albumin Triglycerides Arterial Blood Glucose Arterial Blood Ionized Calcium Digoxin Crossmatch 01/04/21 01/04/21 01/04/21 03:22 04:38 04:38 WBC 11.1 H RBC 2.89 L Hgb 8.9 L Hct 26.2 L MCV MCHC RDW 16.1 H Plt Count Lymph % (Auto) [place] % (Auto) Lymph # (Auto) [place] # (Auto) Seg Neutrophils % Seg Neuts % (Manual) Lymphocytes % (Manual) Monocytes % (Manual) Seg Neutrophils # Seg Neutrophils # Man Lymphocytes # (Manual) Monocytes # (Manual) PT INR ABG pH POC ABG pCO2 POC ABG pO2 82.3 L ABG pO2 ABG HCO3 ABG O2 Saturation ABG Base Excess ABG Hemoglobin 8.9 L ABG Oxyhemoglobin ABG Sodium 130.5 L ABG Potassium ABG Chloride ABG Glucose 124 H Oxyhemoglobin Sodium Potassium Chloride 95.5 L Carbon Dioxide BUN 87 H Creatinine 9.7 H Glucose 118 H POC Glucose Lactic Acid Calcium 7.7 L Phosphorus Magnesium Total Bilirubin AST ALT Alkaline Phosphatase Total Protein Albumin Triglycerides Arterial Blood Glucose 124 H Arterial Blood Ionized Calcium 3.5 L Digoxin Crossmatch 01/04/21 01/04/21 01/04/21 05:39 12:04 18:04 WBC RBC Hgb Hct MCV MCHC RDW Plt Count Lymph % (Auto) [place] % (Auto) Lymph # (Auto) [place] # (Auto) Seg Neutrophils % Seg Neuts % (Manual) Lymphocytes % (Manual) Monocytes % (Manual) Seg Neutrophils # Seg Neutrophils # Man Lymphocytes # (Manual) Monocytes # (Manual) PT INR ABG pH POC ABG pCO2 POC ABG pO2 ABG pO2 ABG HCO3 ABG O2 Saturation ABG Base Excess ABG Hemoglobin ABG Oxyhemoglobin ABG Sodium ABG Potassium ABG Chloride ABG Glucose Oxyhemoglobin Sodium Potassium Chloride Carbon Dioxide BUN Creatinine Glucose POC Glucose 134 H 125 H 131 H Lactic Acid Calcium Phosphorus Magnesium Total Bilirubin AST ALT Alkaline Phosphatase Total Protein Albumin Triglycerides Arterial Blood Glucose Arterial Blood Ionized Calcium Digoxin Crossmatch 01/04/21 01/05/21 01/05/21 23:41 03:23 04:49 WBC RBC Hgb Hct MCV MCHC RDW Plt Count Lymph % (Auto) [place] % (Auto) Lymph # (Auto) [place] # (Auto) Seg Neutrophils % Seg Neuts % (Manual) Lymphocytes % (Manual) Monocytes % (Manual) Seg Neutrophils # Seg Neutrophils # Man Lymphocytes # (Manual) Monocytes # (Manual) PT INR ABG pH POC ABG pCO2 POC ABG pO2 62.8 L ABG pO2 ABG HCO3 ABG O2 Saturation ABG Base Excess ABG Hemoglobin 9.5 L ABG Oxyhemoglobin 92.0 L ABG Sodium 130.1 L ABG Potassium ABG Chloride ABG Glucose 148 H Oxyhemoglobin Sodium Potassium Chloride 96.9 L Carbon Dioxide BUN 57 H Creatinine 6.7 H Glucose 135 H POC Glucose 132 H Lactic Acid Calcium 8.0 L Phosphorus Magnesium Total Bilirubin AST ALT Alkaline Phosphatase Total Protein Albumin Triglycerides Arterial Blood Glucose 148 H Arterial Blood Ionized Calcium 4.1 L Digoxin Crossmatch 01/05/21 01/05/21 01/05/21 05:04 11:48 12:39 WBC RBC 3.03 L Hgb 9.3 L Hct 27.6 L MCV MCHC RDW 16.5 H Plt Count Lymph % (Auto) [place] % (Auto) Lymph # (Auto) [place] # (Auto) Seg Neutrophils % Seg Neuts % (Manual) Lymphocytes % (Manual) Monocytes % (Manual) Seg Neutrophils # Seg Neutrophils # Man Lymphocytes # (Manual) Monocytes # (Manual) PT INR ABG pH POC ABG pCO2 POC ABG pO2 ABG pO2 ABG HCO3 ABG O2 Saturation ABG Base Excess ABG Hemoglobin ABG Oxyhemoglobin ABG Sodium ABG Potassium ABG Chloride ABG Glucose Oxyhemoglobin Sodium Potassium Chloride Carbon Dioxide BUN Creatinine Glucose POC Glucose 147 H 162 H Lactic Acid Calcium Phosphorus Magnesium Total Bilirubin AST ALT Alkaline Phosphatase Total Protein Albumin Triglycerides Arterial Blood Glucose Arterial Blood Ionized Calcium Digoxin Crossmatch 01/05/21 01/05/21 01/06/21 17:50 23:32 04:15 WBC RBC Hgb Hct MCV MCHC RDW Plt Count Lymph % (Auto) [place] % (Auto) Lymph # (Auto) [place] # (Auto) Seg Neutrophils % Seg Neuts % (Manual) Lymphocytes % (Manual) Monocytes % (Manual) Seg Neutrophils # Seg Neutrophils # Man Lymphocytes # (Manual) Monocytes # (Manual) PT INR ABG pH POC ABG pCO2 POC ABG pO2 ABG pO2 191.0 H ABG HCO3 ABG O2 Saturation 99.2 H ABG Base Excess ABG Hemoglobin 9.0 L ABG Oxyhemoglobin ABG Sodium ABG Potassium ABG Chloride ABG Glucose Oxyhemoglobin Sodium Potassium Chloride Carbon Dioxide BUN Creatinine Glucose POC Glucose 155 H 115 H Lactic Acid Calcium Phosphorus Magnesium Total Bilirubin AST ALT Alkaline Phosphatase Total Protein Albumin Triglycerides Arterial Blood Glucose Arterial Blood Ionized Calcium Digoxin Crossmatch 01/06/21 01/06/21 01/06/21 04:45 05:56 07:03 WBC RBC 2.95 L Hgb 9.1 L Hct 26.8 L MCV MCHC RDW 16.8 H Plt Count Lymph % (Auto) [place] % (Auto) Lymph # (Auto) [place] # (Auto) Seg Neutrophils % Seg Neuts % (Manual) Lymphocytes % (Manual) Monocytes % (Manual) Seg Neutrophils # Seg Neutrophils # Man Lymphocytes # (Manual) Monocytes # (Manual) PT INR ABG pH POC ABG pCO2 POC ABG pO2 ABG pO2 ABG HCO3 ABG O2 Saturation ABG Base Excess ABG Hemoglobin ABG Oxyhemoglobin ABG Sodium ABG Potassium ABG Chloride ABG Glucose Oxyhemoglobin Sodium 135 L Potassium Chloride 95.9 L Carbon Dioxide BUN 82 H Creatinine 8.7 H Glucose 127 H POC Glucose 136 H Lactic Acid Calcium 8.3 L Phosphorus Magnesium Total Bilirubin AST ALT Alkaline Phosphatase Total Protein Albumin Triglycerides Arterial Blood Glucose Arterial Blood Ionized Calcium Digoxin Crossmatch 01/06/21 01/06/21 01/06/21 07:10 11:04 13:38 WBC RBC Hgb Hct MCV MCHC RDW Plt Count Lymph % (Auto) [place] % (Auto) Lymph # (Auto) [place] # (Auto) Seg Neutrophils % Seg Neuts % (Manual) Lymphocytes % (Manual) Monocytes % (Manual) Seg Neutrophils # Seg Neutrophils # Man Lymphocytes # (Manual) Monocytes # (Manual) PT INR ABG pH POC ABG pCO2 POC ABG pO2 ABG pO2 ABG HCO3 ABG O2 Saturation ABG Base Excess ABG Hemoglobin ABG Oxyhemoglobin ABG Sodium ABG Potassium ABG Chloride ABG Glucose Oxyhemoglobin Sodium Potassium Chloride Carbon Dioxide BUN Creatinine Glucose POC Glucose 178 H 155 H Lactic Acid Calcium Phosphorus Magnesium Total Bilirubin AST ALT Alkaline Phosphatase Total Protein Albumin Triglycerides Arterial Blood Glucose Arterial Blood Ionized Calcium Digoxin Crossmatch See Detail 01/06/21 01/06/21 01/07/21 17:35 22:21 03:07 WBC RBC Hgb Hct MCV MCHC RDW Plt Count Lymph % (Auto) [place] % (Auto) Lymph # (Auto) [place] # (Auto) Seg Neutrophils % Seg Neuts % (Manual) Lymphocytes % (Manual) Monocytes % (Manual) Seg Neutrophils # Seg Neutrophils # Man Lymphocytes # (Manual) Monocytes # (Manual) PT INR ABG pH POC ABG pCO2 POC ABG pO2 ABG pO2 ABG HCO3 ABG O2 Saturation ABG Base Excess ABG Hemoglobin 11.9 L ABG Oxyhemoglobin ABG Sodium 135.6 L ABG Potassium ABG Chloride ABG Glucose 181 H Oxyhemoglobin Sodium Potassium Chloride Carbon Dioxide BUN Creatinine Glucose POC Glucose 138 H 202 H Lactic Acid Calcium Phosphorus Magnesium Total Bilirubin AST ALT Alkaline Phosphatase Total Protein Albumin Triglycerides Arterial Blood Glucose 181 H Arterial Blood Ionized Calcium 4.3 L Digoxin Crossmatch 01/07/21 01/07/21 01/07/21 04:50 05:21 08:37 WBC 12.4 H RBC Hgb 11.1 L Hct 33.3 L D MCV MCHC RDW 17.0 H Plt Count Lymph % (Auto) 3.2 L [place] % (Auto) 9.4 H Lymph # (Auto) 0.4 L [place] # (Auto) 1.2 H Seg Neutrophils % 86.6 H Seg Neuts % (Manual) Lymphocytes % (Manual) Monocytes % (Manual) Seg Neutrophils # 10.7 H Seg Neutrophils # Man Lymphocytes # (Manual) Monocytes # (Manual) PT INR ABG pH POC ABG pCO2 POC ABG pO2 ABG pO2 ABG HCO3 ABG O2 Saturation ABG Base Excess ABG Hemoglobin ABG Oxyhemoglobin ABG Sodium ABG Potassium ABG Chloride ABG Glucose Oxyhemoglobin Sodium Potassium Chloride Carbon Dioxide BUN 60 H Creatinine 6.3 H Glucose 154 H POC Glucose 177 H Lactic Acid Calcium 8.3 L Phosphorus Magnesium Total Bilirubin AST ALT Alkaline Phosphatase Total Protein Albumin Triglycerides Arterial Blood Glucose Arterial Blood Ionized Calcium Digoxin Crossmatch 01/07/21 01/07/21 01/07/21 11:21 12:19 17:11 WBC RBC Hgb Hct MCV MCHC RDW Plt Count Lymph % (Auto) [place] % (Auto) Lymph # (Auto) [place] # (Auto) Seg Neutrophils % Seg Neuts % (Manual) Lymphocytes % (Manual) Monocytes % (Manual) Seg Neutrophils # Seg Neutrophils # Man Lymphocytes # (Manual) Monocytes # (Manual) PT INR ABG pH POC ABG pCO2 POC ABG pO2 ABG pO2 ABG HCO3 ABG O2 Saturation ABG Base Excess ABG Hemoglobin ABG Oxyhemoglobin ABG Sodium ABG Potassium ABG Chloride ABG Glucose Oxyhemoglobin Sodium Potassium Chloride Carbon Dioxide BUN Creatinine Glucose POC Glucose 144 H 137 H 119 H Lactic Acid Calcium Phosphorus Magnesium Total Bilirubin AST ALT Alkaline Phosphatase Total Protein Albumin Triglycerides Arterial Blood Glucose Arterial Blood Ionized Calcium Digoxin Crossmatch 01/07/21 01/07/21 01/08/21 17:14 23:39 04:34 WBC RBC Hgb Hct MCV MCHC RDW Plt Count Lymph % (Auto) [place] % (Auto) Lymph # (Auto) [place] # (Auto) Seg Neutrophils % Seg Neuts % (Manual) Lymphocytes % (Manual) Monocytes % (Manual) Seg Neutrophils # Seg Neutrophils # Man Lymphocytes # (Manual) Monocytes # (Manual) PT INR ABG pH 7.345 L POC ABG pCO2 POC ABG pO2 ABG pO2 67.4 L ABG HCO3 ABG O2 Saturation 94.3 L ABG Base Excess -3.9 L ABG Hemoglobin 8.9 L ABG Oxyhemoglobin ABG Sodium ABG Potassium ABG Chloride ABG Glucose Oxyhemoglobin 92.3 L Sodium Potassium Chloride Carbon Dioxide 20 L BUN 93 H Creatinine 8.8 H Glucose 120 H POC Glucose 129 H Lactic Acid Calcium Phosphorus Magnesium Total Bilirubin AST ALT Alkaline Phosphatase 133 H Total Protein 5.4 L Albumin 1.9 L Triglycerides Arterial Blood Glucose Arterial Blood Ionized Calcium Digoxin Crossmatch 01/08/21 01/08/21 01/08/21 05:26 11:38 17:19 WBC RBC Hgb Hct MCV MCHC RDW Plt Count Lymph % (Auto) [place] % (Auto) Lymph # (Auto) [place] # (Auto) Seg Neutrophils % Seg Neuts % (Manual) Lymphocytes % (Manual) Monocytes % (Manual) Seg Neutrophils # Seg Neutrophils # Man Lymphocytes # (Manual) Monocytes # (Manual) PT INR ABG pH POC ABG pCO2 POC ABG pO2 ABG pO2 ABG HCO3 ABG O2 Saturation ABG Base Excess ABG Hemoglobin ABG Oxyhemoglobin ABG Sodium ABG Potassium ABG Chloride ABG Glucose Oxyhemoglobin Sodium Potassium Chloride Carbon Dioxide BUN Creatinine Glucose POC Glucose 125 H 146 H 136 H Lactic Acid Calcium Phosphorus Magnesium Total Bilirubin AST ALT Alkaline Phosphatase Total Protein Albumin Triglycerides Arterial Blood Glucose Arterial Blood Ionized Calcium Digoxin Crossmatch 01/08/21 01/09/21 01/09/21 23:52 05:13 05:21 WBC RBC Hgb Hct MCV MCHC RDW Plt Count Lymph % (Auto) [place] % (Auto) Lymph # (Auto) [place] # (Auto) Seg Neutrophils % Seg Neuts % (Manual) Lymphocytes % (Manual) Monocytes % (Manual) Seg Neutrophils # Seg Neutrophils # Man Lymphocytes # (Manual) Monocytes # (Manual) PT INR ABG pH POC ABG pCO2 POC ABG pO2 ABG pO2 ABG HCO3 ABG O2 Saturation ABG Base Excess ABG Hemoglobin ABG Oxyhemoglobin ABG Sodium ABG Potassium ABG Chloride ABG Glucose Oxyhemoglobin Sodium Potassium Chloride Carbon Dioxide 16 L BUN 123 H Creatinine 10.8 H Glucose 145 H POC Glucose 143 H 144 H Lactic Acid Calcium Phosphorus 5.00 H D Magnesium 2.40 H Total Bilirubin AST ALT Alkaline Phosphatase Total Protein Albumin Triglycerides Arterial Blood Glucose Arterial Blood Ionized Calcium Digoxin Crossmatch 01/09/21 01/09/21 01/09/21 12:08 17:20 23:56 WBC RBC Hgb Hct MCV MCHC RDW Plt Count Lymph % (Auto) [place] % (Auto) Lymph # (Auto) [place] # (Auto) Seg Neutrophils % Seg Neuts % (Manual) Lymphocytes % (Manual) Monocytes % (Manual) Seg Neutrophils # Seg Neutrophils # Man Lymphocytes # (Manual) Monocytes # (Manual) PT INR ABG pH POC ABG pCO2 POC ABG pO2 ABG pO2 ABG HCO3 ABG O2 Saturation ABG Base Excess ABG Hemoglobin ABG Oxyhemoglobin ABG Sodium ABG Potassium ABG Chloride ABG Glucose Oxyhemoglobin Sodium Potassium Chloride Carbon Dioxide BUN Creatinine Glucose POC Glucose 153 H 160 H 158 H Lactic Acid Calcium Phosphorus Magnesium Total Bilirubin AST ALT Alkaline Phosphatase Total Protein Albumin Triglycerides Arterial Blood Glucose Arterial Blood Ionized Calcium Digoxin Crossmatch 01/10/21 01/10/21 01/10/21 04:52 05:44 07:41 WBC RBC Hgb Hct MCV MCHC RDW Plt Count Lymph % (Auto) [place] % (Auto) Lymph # (Auto) [place] # (Auto) Seg Neutrophils % Seg Neuts % (Manual) Lymphocytes % (Manual) Monocytes % (Manual) Seg Neutrophils # Seg Neutrophils # Man Lymphocytes # (Manual) Monocytes # (Manual) PT INR ABG pH POC ABG pCO2 POC ABG pO2 ABG pO2 ABG HCO3 ABG O2 Saturation ABG Base Excess ABG Hemoglobin ABG Oxyhemoglobin ABG Sodium ABG Potassium ABG Chloride ABG Glucose Oxyhemoglobin Sodium 135 L Potassium 3.5 L D Chloride 95.0 L Carbon Dioxide 21 L BUN 93 H Creatinine 8.3 H Glucose 127 H POC Glucose 135 H 157 H Lactic Acid Calcium Phosphorus Magnesium Total Bilirubin AST ALT Alkaline Phosphatase Total Protein Albumin Triglycerides Arterial Blood Glucose Arterial Blood Ionized Calcium Digoxin Crossmatch 01/10/21 01/10/21 01/10/21 09:26 12:03 17:44 WBC 18.2 H RBC 3.14 L Hgb 9.7 L Hct 28.2 L MCV MCHC RDW 16.5 H Plt Count Lymph % (Auto) [place] % (Auto) Lymph # (Auto) [place] # (Auto) Seg Neutrophils % Seg Neuts % (Manual) 95.0 H Lymphocytes % (Manual) 3.0 L Monocytes % (Manual) Seg Neutrophils # Seg Neutrophils # Man 17.3 H Lymphocytes # (Manual) 0.5 L Monocytes # (Manual) PT INR ABG pH POC ABG pCO2 POC ABG pO2 ABG pO2 ABG HCO3 ABG O2 Saturation ABG Base Excess ABG Hemoglobin ABG Oxyhemoglobin ABG Sodium ABG Potassium ABG Chloride ABG Glucose Oxyhemoglobin Sodium Potassium Chloride Carbon Dioxide BUN Creatinine Glucose POC Glucose 163 H 171 H Lactic Acid Calcium Phosphorus Magnesium Total Bilirubin AST ALT Alkaline Phosphatase Total Protein Albumin Triglycerides Arterial Blood Glucose Arterial Blood Ionized Calcium Digoxin Crossmatch 01/10/21 01/11/21 01/11/21 23:50 05:18 05:18 WBC RBC Hgb Hct MCV MCHC RDW Plt Count Lymph % (Auto) [place] % (Auto) Lymph # (Auto) [place] # (Auto) Seg Neutrophils % Seg Neuts % (Manual) Lymphocytes % (Manual) Monocytes % (Manual) Seg Neutrophils # Seg Neutrophils # Man Lymphocytes # (Manual) Monocytes # (Manual) PT INR ABG pH POC ABG pCO2 POC ABG pO2 ABG pO2 ABG HCO3 ABG O2 Saturation ABG Base Excess ABG Hemoglobin ABG Oxyhemoglobin ABG Sodium ABG Potassium ABG Chloride ABG Glucose Oxyhemoglobin Sodium 136 L Potassium Chloride 94.6 L Carbon Dioxide 19 L BUN 145 H Creatinine 10.6 H Glucose 152 H POC Glucose 151 H Lactic Acid Calcium Phosphorus 6.00 H D Magnesium Total Bilirubin AST ALT Alkaline Phosphatase Total Protein Albumin Triglycerides Arterial Blood Glucose Arterial Blood Ionized Calcium Digoxin 0.8 L Crossmatch 01/11/21 01/11/21 05:18 05:19 WBC 17.4 H RBC 3.34 L Hgb 10.2 L Hct 29.7 L MCV MCHC RDW 15.9 H Plt Count Lymph % (Auto) [place] % (Auto) Lymph # (Auto) [place] # (Auto) Seg Neutrophils % Seg Neuts % (Manual) Lymphocytes % (Manual) Monocytes % (Manual) Seg Neutrophils # Seg Neutrophils # Man Lymphocytes # (Manual) Monocytes # (Manual) PT INR ABG pH POC ABG pCO2 POC ABG pO2 ABG pO2 ABG HCO3 ABG O2 Saturation ABG Base Excess ABG Hemoglobin ABG Oxyhemoglobin ABG Sodium ABG Potassium ABG Chloride ABG Glucose Oxyhemoglobin Sodium Potassium Chloride Carbon Dioxide BUN Creatinine Glucose POC Glucose 149 H Lactic Acid Calcium Phosphorus Magnesium Total Bilirubin AST ALT Alkaline Phosphatase Total Protein Albumin Triglycerides Arterial Blood Glucose Arterial Blood Ionized Calcium Digoxin Crossmatch Allied health notes reviewed: nursing
[2021-01-12] MEDS: HYDROmorphone 1 MG/1 ML INJ IV PRN (14:05)
--- NOTE | 2021-01-12 15:14 | Progress Note ---
Assessment and Plan Cultures: 12/22/2020 blood culture: Streptococcus bovis, Prevotella 12/22/2020 PD fluid culture: No growth 12/24/2020 tracheal aspirate culture: Gwendolyn albicans (likely a colonizer) 12/24/2020 blood culture: No growth 12/31/2020 sputum culture: No growth A/P: 60-year-old male with ESRD on PD, Crohn's disease, CHF, gastroesophageal reflux disease was admitted to the hospital with complaints of abdominal pain and fever: #Severe sepsis with shock: Remarkable improvement, off pressors (on Levophed and vasopressin), leukocytosis improving. Secondary to small bowel obstruction/necrotic bowel with associated peritonitis. Status post exploratory laparotomy on 12/23/2020 with extensive lysis, primary anastomosis, found to have necrotic segment of small bowel. #Small bowel obstruction/necrotic bowel: with concern for PD associated peritonitis: Nephrology and general surgery following. Status post exploratory laparotomy on 12/23/2020 with extensive lysis, primary anastomosis, found to have necrotic segment of small bowel. PD catheter remains in place. S/p ex lap, resection of perforated anastamosis, washout and abthera wound vac placement on 01/01. Repeat CT abdomen shows no new abscesses, noted small free fluid. S/p Exploratory laparotomy, Right hemicolectomy, Peritoneal lavage, Partial ome ntectomy, ABThera wound VAC placement on 01/03/2021. #Streptococcus bovis bacteremia and Prevotella bacteremia: secondary to above. TTE without obvious vegetations. Repeat blood cultures negative. #ESRD: Renally dose antibiotics. Used to be on PD, cath remains in place. Now on HD. #Elevated LFTs: Secondary to sepsis. #Acute respiratory failure: extubated, then re-intubated 12/31/2020. #Anemia: Severe. Recs: -Completed antibiotics -On TPN -Monitor off abx -If white count continues to uptrend tomorrow will start Estefani Redding MD [facility] ([facility] O: [phone] F: [phone] Subjective Date of service: 01/12/21 Principal diagnosis: Ac hypoxemic resp failure; Severe Sepsis; Peritonitis; Acute SBO; ESRD; CHF Interval history: Afebrile, no acute change. Currently on room air. Objective - Exam Narrative Exam: Narrative Exam: General appearance: Awake, alert Eyes: anicteric sclerae, moist conjunctivae; no lid-lag; PERRLA HENT: Normocephalic, Atraumatic; normal external ears, nares open, oropharynx limited with endotracheal tube, tongue out with edema Neck: supple, tracheal midline, no JVD Lungs: Coarse breath sounds bilaterally CV: Tachycardic Abdomen: Soft, tender. Midline abdominal wound Extremities: no edema, no cyanosis Skin: No rash. Psych: No agitation Neuro: No agitation - Constitutional Vitals: Vital Signs Temp Pulse Resp BP Pulse Ox 99.7 F H 85 18 153/73 99 01/12/21 12:00 01/12/21 10:14 01/12/21 10:00 01/12/21 10:14 01/12/21 12:46 Temperature -Last 24 Hours Temperature 99.7 F Temperature 99.6 F Temperature 98.5 F Temperature 97.5 F Temperature 98.4 F Temperature 98.4 F - Labs CBC & Chem 7: 01/11/21 05:18 01/12/21 06:50 Labs: Abnormal lab results 01/11/21 01/11/21 01/11/21 Range/Units 11:28 17:31 23:14 Potassium (3.6-5.0) mmol/L Chloride (98-107) mmol/L BUN (9-20) mg/dL Creatinine (0.8-1.3) mg/dL Glucose (75-100) mg/dL POC Glucose 178 H 158 H 145 H (70-105) mg/dL Calcium (8.4-10.2) mg/dL Phosphorus (2.5-4.5) mg/dL 01/12/21 01/12/21 01/12/21 Range/Units 05:18 06:50 10:45 Potassium 2.9 L* D (3.6-5.0) mmol/L Chloride 94.8 L (98-107) mmol/L BUN 102 H (9-20) mg/dL Creatinine 8.3 H (0.8-1.3) mg/dL Glucose 139 H (75-100) mg/dL POC Glucose 148 H 151 H (70-105) mg/dL Calcium 8.1 L (8.4-10.2) mg/dL Phosphorus 5.00 H (2.5-4.5) mg/dL
--- NOTE | 2021-01-12 15:56 | Progress Note ---
Assessment and Plan POD#19 s/p ex lap with extensive lysis of adhesions and two small bowel resections with primary anastamosis for SBO with necrotic segment small bowel. POD#10 s/p ex lap, resection of perforated anastamosis, washout and abthera wound vac placement. POD#8 s/p ex lap with right hemicolectomy. POD#6 s/p ex lap, with jejunal-colonic anastamosis and closure of abdomen. Afebrile and stable. - post op ileus. Continue TPN - await return of bowel function. Continue NGT decompression. wound vac changes per wound care team. Pt can have small amount of ice chips for comfort. . Subjective Date of service: 01/12/21 Patient Reports: Positive: bowel movement Narrative: no acute events. Pt denies pain says he feels like he needs to have a bowel move ment. He feels he is ready to go home. Objective Vital Signs - 12hr 01/12/21 01/12/21 01/12/21 04:00 04:01 04:40 Temperature 98.5 F Pulse Rate 87 80 Pulse Rate [ 87 From Monitor] Respiratory 20 20 Rate Blood Pressure 156/73 O2 Sat by Pulse 98 98 Oximetry 01/12/21 01/12/21 01/12/21 05:00 06:00 06:40 Temperature Pulse Rate 78 73 79 Pulse Rate [ From Monitor] Respiratory 36 H 20 Rate Blood Pressure 156/73 159/75 159/75 O2 Sat by Pulse 98 Oximetry 01/12/21 01/12/21 01/12/21 06:41 07:00 08:00 Temperature 99.6 F Pulse Rate 76 87 83 Pulse Rate [ From Monitor] Respiratory 14 Rate Blood Pressure 159/75 153/75 O2 Sat by Pulse 98 Oximetry 01/12/21 01/12/21 01/12/21 08:01 09:00 10:00 Temperature Pulse Rate 90 87 84 Pulse Rate [ From Monitor] Respiratory 22 20 18 Rate Blood Pressure 154/75 156/77 153/73 O2 Sat by Pulse 98 100 98 Oximetry 01/12/21 01/12/21 01/12/21 10:14 11:00 12:00 Temperature 99.7 F H Pulse Rate 85 83 81 Pulse Rate [ From Monitor] Respiratory 20 23 Rate Blood Pressure 153/73 139/70 133/63 O2 Sat by Pulse 98 98 Oximetry 01/12/21 01/12/21 01/12/21 12:46 13:01 14:00 Temperature Pulse Rate 85 75 Pulse Rate [ From Monitor] Respiratory 19 20 Rate Blood Pressure 149/71 152/74 O2 Sat by Pulse 99 99 99 Oximetry 01/12/21 15:00 Temperature Pulse Rate 74 Pulse Rate [ From Monitor] Respiratory 21 Rate Blood Pressure 149/72 O2 Sat by Pulse Oximetry - General physical appearance no distress, no pain, chronically ill - ENT other (tongue swelling improved) - Respiratory normal expansion, normal respiratory effort - Abdomen soft, not tender, not rebound, not guarding, not rigid, other (HARIS drain SS drainage, NGT with bilious drainage 550cc last 24 hours. incisional vac with SS drainage) - Labs 01/11/21 05:18 01/12/21 06:50 Diabetes panel 01/12/21 Range/Units 06:50 Sodium 138 (137-145) mmol/L Potassium 2.9 L* D (3.6-5.0) mmol/L Chloride 94.8 L (98-107) mmol/L Carbon Dioxide 26 D (22-30) mmol/L BUN 102 H (9-20) mg/dL Creatinine 8.3 H (0.8-1.3) mg/dL Glucose 139 H (75-100) mg/dL Calcium 8.1 L (8.4-10.2) mg/dL Calcium panel 01/12/21 Range/Units 06:50 Calcium 8.1 L (8.4-10.2) mg/dL Phosphorus 5.00 H (2.5-4.5) mg/dL Pituitary panel 01/12/21 Range/Units 06:50 Sodium 138 (137-145) mmol/L Potassium 2.9 L* D (3.6-5.0) mmol/L Chloride 94.8 L (98-107) mmol/L Carbon Dioxide 26 D (22-30) mmol/L BUN 102 H (9-20) mg/dL Creatinine 8.3 H (0.8-1.3) mg/dL Glucose 139 H (75-100) mg/dL Calcium 8.1 L (8.4-10.2) mg/dL Adrenal panel 01/12/21 Range/Units 06:50 Sodium 138 (137-145) mmol/L Potassium 2.9 L* D (3.6-5.0) mmol/L Chloride 94.8 L (98-107) mmol/L Carbon Dioxide 26 D (22-30) mmol/L BUN 102 H (9-20) mg/dL Creatinine 8.3 H (0.8-1.3) mg/dL Glucose 139 H (75-100) mg/dL Calcium 8.1 L (8.4-10.2) mg/dL
[2021-01-12] MEDS ORDERED: TOTAL PARENTERAL NUTRITION 2,016 ML IV SCH (20:00)
[2021-01-13] MEDS: INSULIN LISPRO 100 UNIT/ML SUB-Q SCH ×3 (01:37→12:33)
[2021-01-13] MEDS: hydrALAZINE 20 MG/1 ML INJ IV SCH ×5 (01:38→22:15)
[2021-01-13] MEDS: METOPROLOL TARTRATE 5 MG/5 ML INJ IV SCH ×5 (01:39→22:13)
[2021-01-13 04:02] LABS: Basophils % (Auto) 0.2 % (0.0-1.8); Eosinophils # (Auto) 0.2 K/mm3 (0.0-0.4); Eosinophils % (Auto) 0.9 % (0.0-4.3); Hematocrit 29.5 % (35.5-45.6); Hemoglobin 10.2 gm/dl (11.8-15.2); Lymphocytes # (Auto) 0.8 K/mm3 (1.2-5.4); Lymphocytes % (Auto) 4.4 % (13.4-35.0); Mean Corpuscular HGB Conc 35 % (32-34); Mean Corpuscular Volume 88 fl (84-94); Monocytes # (Auto) 1.8 K/mm3 (0.0-0.8); Monocytes % (Auto) 10.3 % (0.0-7.3); Platelet Count 377 K/mm3 (140-440); Red Blood Count 3.33 M/mm3 (3.65-5.03); Red Cell Distribution Width 15.5 % (13.2-15.2)
[2021-01-13 04:22] LABS: Calcium 8.3 mg/dL (8.4-10.2)
[2021-01-13] MEDS ORDERED: POTASSIUM CHLORIDE 20 MEQ PACKET FEEDTUBE NR (07:40)
[2021-01-13] MEDS ORDERED: POTASSIUM CHLORIDE 20 MEQ 20 MEQ/100 ML BAG IV ONE (09:00)
[2021-01-13] MEDS ORDERED: MAGNESIUM SULFATE 2 GM/50 ML BAG IV ONE ×2 (09:00→14:00)
[2021-01-13] MEDS: HYDROmorphone 1 MG/1 ML INJ IV PRN ×4 (09:25→21:45)
[2021-01-13] MEDS: FAMOTIDINE 20 MG/2 ML INJ IV SCH ×2 (09:30→22:12)
[2021-01-13] MEDS: diphenhydrAMINE 50 MG/ML VIAL IV SCH (09:30)
[2021-01-13] MEDS: HEPARIN 5,000 UNIT/1 ML VIAL SUB-Q SCH ×2 (09:30→22:15)
[2021-01-13] MEDS: INSULIN GLARGINE 100 UNITS/ML SUB-Q SCH (10:11)
--- NOTE | 2021-01-13 11:01 | Progress Note ---
Assessment and Plan POD#20 s/p ex lap with extensive lysis of adhesions and two small bowel resections with primary anastamosis for SBO with necrotic segment small bowel. POD#11 s/p ex lap, resection of perforated anastamosis, washout and abthera wound vac placement. POD#9 s/p ex lap with right hemicolectomy. POD#7 s/p ex lap, with jejunal-colonic anastamosis and closure of abdomen. Afebrile and stable. - concerned about a leak at his anastamosis. Blood supply was evaluated at time of last surgery with ICG and found to be adequate. Pt was on several days of steroids for tongue swelling which may have contributed to leak. Currently since he is stable and afebrile will treat like controlled fistua. He is extremely high risk for additional surgery with tissues that are extremely friable and previous scar tissue that makes his anatomy very difficult to manipulate. Will start octreotide drip to try to slow down GI output. Continue HARIS drain suction with and NGT deccompression. Strict NPO. If he requires operative intervention will likely need to be left in discontinuity and eventual ileostomy as he has already failed two anastamoses. I updated his daughter Cristopher. Prognosis is gaurded. continue abx Subjective Date of service: 01/13/21 Narrative: Pt awake and says that he would like some medicine to sleep. He was on dialysis when evaluated. No acute events reported overnight per nurse. Objective Vital Signs - 12hr 01/12/21 01/13/21 01/13/21 23:00 00:00 01:00 Temperature 97.6 F Pulse Rate 72 71 69 Pulse Rate [ 73 From Monitor] Respiratory 14 20 14 Rate Blood Pressure 172/76 163/72 167/72 O2 Sat by Pulse 98 98 99 Oximetry 01/13/21 01/13/21 01/13/21 01:38 01:39 02:00 Temperature Pulse Rate 75 75 69 Pulse Rate [ From Monitor] Respiratory 16 Rate Blood Pressure 167/72 167/72 155/68 O2 Sat by Pulse 98 Oximetry 01/13/21 01/13/21 01/13/21 03:00 04:00 05:00 Temperature 97.6 F Pulse Rate 72 72 89 Pulse Rate [ 72 From Monitor] Respiratory 17 16 21 Rate Blood Pressure 164/68 161/75 167/75 O2 Sat by Pulse 97 97 98 Oximetry 01/13/21 01/13/21 01/13/21 06:00 06:12 07:00 Temperature Pulse Rate 77 78 77 Pulse Rate [ From Monitor] Respiratory 18 19 Rate Blood Pressure 164/72 164/72 161/64 O2 Sat by Pulse 98 97 Oximetry 01/13/21 01/13/21 01/13/21 07:28 07:53 08:00 Temperature 98.4 F Pulse Rate 81 Pulse Rate [ 72 From Monitor] Respiratory 18 Rate Blood Pressure 158/68 O2 Sat by Pulse 99 99 Oximetry 01/13/21 01/13/21 01/13/21 09:25 09:30 09:45 Temperature 98.5 F Pulse Rate 75 82 84 Pulse Rate [ From Monitor] Respiratory 17 Rate Blood Pressure 161/68 165/70 159/67 O2 Sat by Pulse Oximetry 01/13/21 01/13/21 01/13/21 10:00 10:15 10:30 Temperature Pulse Rate 85 86 87 Pulse Rate [ From Monitor] Respiratory Rate Blood Pressure 159/69 142/65 141/70 O2 Sat by Pulse Oximetry 01/13/21 10:45 Temperature Pulse Rate 86 Pulse Rate [ From Monitor] Respiratory Rate Blood Pressure 148/64 O2 Sat by Pulse Oximetry - General physical appearance well developed, no distress, no pain - Abdomen not tender, other (incisional vac dressing in place with scant ss, HARIS drain bilious which is new. ~100 cc in bulb. SS reported from shift boss 300 of last shift.) - Labs 01/13/21 03:45 01/13/21 03:45 Diabetes panel 01/13/21 Range/Units 03:45 Sodium 136 L (137-145) mmol/L Potassium 3.4 L (3.6-5.0) mmol/L Chloride 92.6 L (98-107) mmol/L Carbon Dioxide 22 (22-30) mmol/L BUN 134 H (9-20) mg/dL Creatinine 10.4 H (0.8-1.3) mg/dL Glucose 126 H (75-100) mg/dL Calcium 8.3 L (8.4-10.2) mg/dL Calcium panel 01/13/21 Range/Units 03:45 Calcium 8.3 L (8.4-10.2) mg/dL Phosphorus 5.60 H (2.5-4.5) mg/dL Pituitary panel 01/13/21 Range/Units 03:45 Sodium 136 L (137-145) mmol/L Potassium 3.4 L (3.6-5.0) mmol/L Chloride 92.6 L (98-107) mmol/L Carbon Dioxide 22 (22-30) mmol/L BUN 134 H (9-20) mg/dL Creatinine 10.4 H (0.8-1.3) mg/dL Glucose 126 H (75-100) mg/dL Calcium 8.3 L (8.4-10.2) mg/dL Adrenal panel 01/13/21 Range/Units 03:45 Sodium 136 L (137-145) mmol/L Potassium 3.4 L (3.6-5.0) mmol/L Chloride 92.6 L (98-107) mmol/L Carbon Dioxide 22 (22-30) mmol/L BUN 134 H (9-20) mg/dL Creatinine 10.4 H (0.8-1.3) mg/dL Glucose 126 H (75-100) mg/dL Calcium 8.3 L (8.4-10.2) mg/dL
[2021-01-13] MEDS: OCTREOTIDE 500 MCG in SODIUM CHLORIDE 0.9% 100 ML IV SCH (12:12)
[2021-01-13] MEDS: PIPERACIL-TAZO 2.25 GM/50 ML 2.25 GM/50 ML BAG IV SCH (12:12)
--- NOTE | 2021-01-13 12:27 | Progress Note ---
Assessment and Plan Assessment and plan: This is a 60-year-old male with ESRD on peritoneal dialysis, Crohn's, hypertension, systolic CHF (EF 35%) who was admitted with sepsis, peritonitis, small bowel obstruction and streptococcus bovis bacteremia/Prevotella bacteremia Severe Sepsis with shock Streptococcus bovis bacteremia/Prevotella bacteremia Gwendolyn albicans tracheal aspirate Small bowel obstruction/necrotic bowel s/p ex lap with extensive lysis of adhesions, 2 small bowel resections with primary anastomosis, right hemicolectomy, jejunal colonic anastomosis, segmental small bowel resection Acute hypoxic respiratory failure Postoperative ileus Atrial fibrillation with RVR Leukocytosis Hyponatremia Hypomagnesemia Hypokalemia Hypochloremia Metabolic acidosis Gwendolyn albicans in tracheal aspirate from 12/24 ESRD on PD, PermCath to be placed Transaminitis Systolic CHF(EF 35%) Crohn's disease Hypertension -[facility], surgery, infectious disease, nephrology, vascular surgery, cardiology consulted, appreciate recommendations -12/24 S/p ex lap with extensive expectations, 2 small bowel resections with primary anastomosis with surgery on 12/23 -s/p PICC and Permacath placement with vascular surgery on 12/27 -Extubated on 12/28, reintubated 12/31 for respiratory distress and extubated 01/08 -12/29 echocardiogram shows moderate concentric LVH, small pericardial effusion, transmitral Doppler flow pattern is grade 1 abnormal relaxation pattern, left- ventricular systolic function normal, LVEF 50 to 55%, no wall motion abnormalities. -01/01 CT abdomen/pelvis shows small pericardial effusion, mild coronary artery atherosclerotic calcification, small bilateral pleural effusions with associated volume loss, no convincing evidence of bowel obstruction or inflammation, postoperative changes from interval/recent midline laparotomy with a moderate amount of free fluid throughout the abdomen, small amount of dependent free air presumably postoperative -01/02 s/p ex lap, resection of perforated anastamosis, washout and abthera wound vac placement. -01/04 s/p ex lap with right hemicolectomy. -01/06 s/p exploratory laparotomy, Jejunal colonic anastomosis, Segmental small bowel resection. -s/p Vasopressor support with Levophed and vasopressin -Transitioned to HD from PD -HD per nephro -Strict NPO -TPN -Octreotide drip -NGT to LIS -s/p IV antibiotics -Tobacco abuse cessation counseling -Trend CBC, BMP DVT/GI prophylaxis: PPI, heparin subcu, SCDs to bilateral lower extremities while in bed Disposition: IMCU Critical care statement The high probability of a clinically significant, sudden or life threatening deterioration of the [pulmonary, cardiac, neuro, renal] system(s) required my full and direct attention, intervention and personal management. The aggregate critical care time was [35] minutes. This time is in addition to time spent performing reported procedures but includes the following: [x] Data Review and interpretation [x] Patient assessment and monitoring of vital signs [x] Documentation [x] Medication orders and management History Interval history: This is a 60 YO Male with ESRD on PD, GERD, Crohn's Disease, Nicotine Dependence, HTN, Systolic CHF(EF 35%) who presented to the emergency department on 12/22 with complaints of abdominal pain which began shortly after eating fast food rated 10/10 which is periumbilical, constant, associated with fever, nausea and multiple sites of vomiting and self-reported inability to undergo PD. In the emergency room patient underwent a CT scan of the abdomen/pelvis which revealed evidence of partial small bowel obstruction, symptoms were consistent with bacterial peritonitis. Patient was admitted to the hospital service with sepsis, peritonitis, and small bowel obstruction with consults to general surgery, nephrology, infectious disease and [facility]. 12/23. Patient had temperature 101.2 F, tachycardia and elevated lactic acid on admission. Meet sepsis criteria. Started on IV antibiotics. ID has been consulted. Surgery consulted this a.m.-advised laparoscopy. He remains on NG tube connected to suction. 12/24. Patient was noted to have peritonitis yesterday and patient undergoing exploratory laparotomy. Patient remained intubated after procedure and is in ICU. Now on broad-spectrum antibiotics. ID on board. 12/25. Remains mechanically ventilated and sedated. Temp 103 Fahrenheit. A ntibiotics broadened-ID added fluconazole and Flagyl. Blood cultures ordered. Plan to repeat CT abdomen tomorrow if not better. Surgery following. 12/26: Patient remains on mechanical ventilation on CMV tidal line 550, rate of 14, PEEP of 8 and 30% FiO2 and sedated on fentanyl 4 micrograms. Today we will remove his Jeffery and [facility] dropped his rate controlled him on CPAP. We will trend CBC given recent drop in H/H. 12/27: Patient remains intubated on CMV tidal volume 550, rate 12, PEEP 8 on 30% FiO2 at the time my examination. Patient's TPN will be changed to PPN. Patient's fentanyl drip will be changed to IV push fentanyl and have a permacath placed today and midline. Patient was placed on a spontaneous breathing trial was switched back to CMV prior to procedure. 12/28: Patient on fentanyl but awake and follows commands. At the time of my examination he was on a CPAP trial and is scheduled to receive HD today. s/o permacath and PICC placement with vascular yesterday. His blood culture grew Prevotella and addition to Streptococcus bovis. This evening Dr. Spicer attempted to extubate the patient and his heart rate went to the 180s. Stat EKG obtained and cardiology consulted. 12/29: Patient was started on amiodarone IV for A. fib RVR yesterday and today he is more rate controlled into the 70s and 80s. Patient was extubated yesterday and is currently on Ventimask. Patient will be transferred to [facility]. Patient continues to be n.p.o. with TPN and NG tube to [facility]. He is hypokalemic today which was repleted. 12/30; patient was on IV amiodarone for treatment with RVR, rate is controlled. Patient was off oxygen. patient is n.p.o. and on TPN. Surgery is following the patient. 12/31: Patient was intubated overnight for respiratory distress and this morning on examination he was on assist control tidal volume 450, rate 20, PEEP 6, 100% FiO2 and RT was getting a ABG to adjust vent settings. Patient had a acute bump in WBC and per ID recommendations we will obtain a CT abdomen/pelvis if leukocytosis persist. Patient is on TPN and sedated with Levophed. Patient is also on vasopressor support with Levophed. Per surgery his ileus is resolving however will maintain OGT to LIWS. 01/01: Patient was started on a vasopressin yesterday late evening. This morning patient is on 20 mcg of Levophed and 0.03 vasopressin and sedated on 20 mcg of propofol. Patient WBC increased today and he is hypokalemic. We will treat hyperkalemia. Patient had a CT chest and abdomen/pelvis pending. The time examination total of 450, rate 20, PEEP of 6 and 35 percent FiO2. Per RN, Dr Pollock has stated that the patient will be returning to the OR today for likely anastomosis seen on CT abdomen/pelvis. This is a 60 YO Male with ESRD on PD, GERD, Crohn's Disease, Nicotine Dependence, HTN, Systolic CHF(EF 35%) who presented to the emergency department on 12/22 with complaints of abdominal pain which began shortly after eating fast food rated 10/10 which is periumbilical, constant, associated with fever, nausea and multiple sites of vomiting and self-reported inability to undergo PD. In the emergency room patient underwent a CT scan of the abdomen/pelvis which re vealed evidence of partial small bowel obstruction, symptoms were consistent with bacterial peritonitis. Patient was admitted to the hospital service with sepsis, peritonitis, and small bowel obstruction with consults to general surgery, nephrology, infectious disease and [facility]. 12/23. Patient had temperature 101.2 F, tachycardia and elevated lactic acid on admission. Meet sepsis criteria. Started on IV antibiotics. ID has been consulted. Surgery consulted this a.m.-advised laparoscopy. He remains on NG tube connected to suction. 12/24. Patient was noted to have peritonitis yesterday and patient undergoing exploratory laparotomy. Patient remained intubated after procedure and is in I CU. Now on broad-spectrum antibiotics. ID on board. 12/25. Remains mechanically ventilated and sedated. Temp 103 Fahrenheit. Antibiotics broadened-ID added fluconazole and Flagyl. Blood cultures ordered. Plan to repeat CT abdomen tomorrow if not better. Surgery following. 12/26: Patient remains on mechanical ventilation on CMV tidal line 550, rate of 14, PEEP of 8 and 30% FiO2 and sedated on fentanyl 4 micrograms. Today we will remove his Jeffery and [facility] dropped his rate controlled him on CPAP. We will trend CBC given recent drop in H/H. 12/27: Patient remains intubated on CMV tidal volume 550, rate 12, PEEP 8 on 30% FiO2 at the time my examination. Patient's TPN will be changed to PPN. Patient's fentanyl drip will be changed to IV push fentanyl and have a permacath placed today and midline. Patient was placed on a spontaneous breathing trial was switched back to CMV prior to procedure. 12/28: Patient on fentanyl but awake and follows commands. At the time of my examination he was on a CPAP trial and is scheduled to receive HD today. s/o permacath and PICC placement with vascular yesterday. His blood culture grew Prevotella and addition to Streptococcus bovis. This evening Dr. Spicer attempted to extubate the patient and his heart rate went to the 180s. Stat EKG obtained and cardiology consulted. 12/29: Patient was started on amiodarone IV for A. fib RVR yesterday and today he is more rate controlled into the 70s and 80s. Patient was extubated yesterday and is currently on Ventimask. Patient will be transferred to [facility]. Patient continues to be n.p.o. with TPN and NG tube to LIS. He is hypokalemic today which was repleted. 12/30; patient was on IV amiodarone for treatment with RVR, rate is controlled. Patient was off oxygen. patient is n.p.o. and on TPN. Surgery is following the patient. 12/31: Patient was intubated overnight for respiratory distress and this morning on examination he was on assist control tidal volume 450, rate 20, PEEP 6, 100% FiO2 and RT was getting a ABG to adjust vent settings. Patient had a acute bump in WBC and per ID recommendations we will obtain a CT abdomen/pelvis if leukocytosis persist. Patient is on TPN and sedated with Levophed. Patient is also on vasopressor support with Levophed. Per surgery his ileus is resolving however will maintain OGT to LIWS. 01/01: Patient was started on a vasopressin yesterday late evening. This morning patient is on 20 mcg of Levophed and 0.03 vasopressin and sedated on 20 mcg of propofol. Patient WBC increased today and he is hypokalemic. We will treat hyperkalemia. Patient had a CT chest and abdomen/pelvis pending. The time examination total of 450, rate 20, PEEP of 6 and 35 percent FiO2. Per RN, Dr Pollock has stated that the patient will be returning to the OR today for likely anastomosis seen on CT abdomen/pelvis. 01/02: Patient noted, WBC improving, but noted to have anemia, will transfuse additional unit of Blood and repeat H/H. continue supportive care. 01/03: Continue to wean pressors, ABX PER ID, patient to return to OR today for washout and possible closure, CONTINUE TPN 01/04: Continues to show some improvement. Today is POD#12 s/p ex lap with extensive lysis of adhesions and two small bowel resections with primary anastamosis for SBO with necrotic segment small bowel. POD#3 s/p ex lap, resection of perforated anastamosis, washout and abthera wound vac placement. POD#1 s/p ex lap with right hemicolectomy. Surgery planning to take back to the OR on Saturday with the hope to anastamos ileum to transverse colon and close abdomen. keep NGT to suction. Pt in deep sedation due to open abdomen. Per ID - Continue IV Zosyn, renally dosed for Strep bacteremia treatment till 01/06/2021 -On TPN 01/05: Patient continues on HD, anticipate return to OR tomorrow for closure and anastemosis. Continues with deep sedation due to open abdomen 01/06: Continue supportive care, monitor pressures and electrolytes. He is post o p Exploratory laparotomy, 2. Jejunal colonic anastomosis,3. Segmental small bowel resection and anastemosis closure today. Continue wound vac 515: Continue supportive care, Today is POD#15 s/p ex lap with extensive lysis of adhesions and two small bowel resections with primary anastamosis for SBO with necrotic segment small bowel. POD#6 s/p ex lap, resection of perforated anastamosis, washout and abthera wound vac placement. POD#4 s/p ex lap with right hemicolectomy. POD #1 exploratory laparotomy, 2. Jejunal colonic anastomosis,3. Segmental small bowel resection. Continue to monitor and correct electrolytes. Patient remains on fentanyl and TPN with lipids. Still hypoactive bowel sounds. 516: Patient now extubated, asked when he can go home, Still lethargic. Continue wound management, wound vac, Will need Rehab eval prior to discharge. 01/09: Patient remains on TPN, was started on labetalol drip per cardiology, patient had uncontrolled hypertension today however he cannot be given p.o. medications ileus resolves per surgery. Patient received hemodialysis today. NG tube remains to low intermittent suction. 01/10: Patient has some leukocytosis, slight hypokalemia and hyponatremia, metabolic acidosis. NG tube to LIWS, continue TPN. Patient will be downgraded to IMCU today. [facility] is working on placement. Will change frequency of hydralazine and discontinue labetalol drip. We will obtain a.m. BMP/mag/Phos and CBC. Infectious disease will like to start Zosyn if leukocytosis continues to worsen. 01/11: Patient leukocytosis has slightly improved potassium with in normal limits and other electrolytes are elevated but patient is scheduled for HD today. Remains on RA and A,A,Ox4. BP better controlled but remains elevated and we will increase clonidine dose. 01/12: Surgery is concerned about a leak at his anastamosis given increased output and will treat as controlled fistula and start an octreotide drip. And per surgery if he requires operative intervention will likely need to be left in discontinuity and eventual ileostomy as he has already failed two anastamoses. Patient still has tongue swelling and slurred speech. He is on Benadryl. Hospitalist Physical - Constitutional Vitals: Temp Pulse Resp BP Pulse Ox 99.1 F 62 16 148/68 97 01/13/21 12:00 01/13/21 12:15 01/13/21 11:00 01/13/21 12:15 01/13/21 09:00 General appearance: Present: no acute distress - EENT Eyes: Present: PERRL ENT: other (swollen tongue) - Neck Neck: Present: normal ROM - Respiratory Respiratory effort: normal Respiratory: bilateral: diminished - Cardiovascular Rhythm: regular Heart Sounds: Present: S1 & S2. Absent: systolic murmur, diastolic murmur - Extremities Extremities: pulses intact, pulses symmetrical, normal temperature, normal color, Full ROM - Abdominal General gastrointestinal: soft, non-tender, absent bowel sounds - Integumentary Integumentary: Present: warm, dry - Psychiatric Psychiatric: cooperative - Neurologic Neurologic: CNII-XII intact, no focal deficits, moves all extremities - Allied Health Allied health notes reviewed: nursing, RT HEART Score - HEART Score Troponin: Troponin T 0.021 ng/mL (0.00-0.029) 12/22/20 14:38 Results - Labs CBC & Chem 7: 01/13/21 03:45 01/13/21 03:45 Labs: Laboratory Last Values WBC 17.6 K/mm3 (4.5-11.0) H 01/13/21 03:45 RBC 3.33 M/mm3 (3.65-5.03) L 01/13/21 03:45 Hgb 10.2 gm/dl (11.8-15.2) L 01/13/21 03:45 Hct 29.5 % (35.5-45.6) L 01/13/21 03:45 MCV 88 fl (84-94) 01/13/21 03:45 MCH 31 pg (28-32) 01/13/21 03:45 MCHC 35 % (32-34) H 01/13/21 03:45 RDW 15.5 % (13.2-15.2) H 01/13/21 03:45 Plt Count 377 K/mm3 (140-440) 01/13/21 03:45 Lymph % (Auto) 4.4 % (13.4-35.0) L 01/13/21 03:45 [place] % (Auto) 10.3 % (0.0-7.3) H 01/13/21 03:45 Eos % (Auto) 0.9 % (0.0-4.3) 01/13/21 03:45 Baso % (Auto) 0.2 % (0.0-1.8) 01/13/21 03:45 Lymph # (Auto) 0.8 K/mm3 (1.2-5.4) L 01/13/21 03:45 [place] # (Auto) 1.8 K/mm3 (0.0-0.8) H 01/13/21 03:45 Eos # (Auto) 0.2 K/mm3 (0.0-0.4) 01/13/21 03:45 Baso # (Auto) 0.0 K/mm3 (0.0-0.1) 01/13/21 03:45 Add Manual Diff Complete 01/10/21 09:26 Total Counted 100 01/10/21 09:26 Seg Neutrophils % 84.2 % (40.0-70.0) H 01/13/21 03:45 Seg Neuts % (Manual) 95.0 % (40.0-70.0) H 01/10/21 09:26 Band Neutrophils % 1.0 % 01/10/21 09:26 Lymphocytes % (Manual) 3.0 % (13.4-35.0) L 01/10/21 09:26 Reactive Lymphs % (Man) 1.0 % 12/29/20 05:16 Monocytes % (Manual) 1.0 % (0.0-7.3) 01/10/21 09:26 Eosinophils % (Manual) 2.0 % (0.0-4.3) 12/29/20 05:16 Metamyelocytes % 2.0 % 12/29/20 05:16 Nucleated RBC % Not Reportable 01/10/21 09:26 Seg Neutrophils # 14.8 K/mm3 (1.8-7.7) H 01/13/21 03:45 Seg Neutrophils # Man 17.3 K/mm3 (1.8-7.7) H 01/10/21 09:26 Band Neutrophils # 0.2 K/mm3 01/10/21 09:26 Lymphocytes # (Manual) 0.5 K/mm3 (1.2-5.4) L 01/10/21 09:26 Abs React Lymphs (Man) 0.0 K/mm3 01/10/21 09:26 Monocytes # (Manual) 0.2 K/mm3 (0.0-0.8) 01/10/21 09:26 Eosinophils # (Manual) 0.0 K/mm3 (0.0-0.4) 01/10/21 09:26 Basophils # (Manual) 0.0 K/mm3 (0.0-0.1) 01/10/21 09:26 Metamyelocytes # 0.0 K/mm3 01/10/21 09:26 Myelocytes # 0.0 K/mm3 01/10/21 09:26 Promyelocytes # 0.0 K/mm3 01/10/21 09:26 Blast Cells # 0.0 K/mm3 01/10/21 09:26 WBC Morphology Not Reportable 01/10/21 09:26 Hypersegmented Neuts Not Reportable 01/10/21 09:26 Hyposegmented Neuts Not Reportable 01/10/21 09:26 Hypogranular Neuts Not Reportable 01/10/21 09:26 Smudge Cells Not Reportable 01/10/21 09:26 Toxic Granulation 1+ 01/10/21 09:26 Toxic Vacuolation Not Reportable 01/10/21 09:26 Dohle Bodies Not Reportable 01/10/21 09:26 Pelger-Huet Anomaly Not Reportable 01/10/21 09:26 Lamar Rods Not Reportable 01/10/21 09:26 Platelet Estimate Consistent w auto 01/10/21 09:26 Clumped Platelets Not Reportable 01/10/21 09:26 Plt Clumps, EDTA Not Reportable 01/10/21 09:26 Large Platelets Not Reportable 01/10/21 09:26 Giant Platelets Not Reportable 01/10/21 09:26 Platelet Satelliting Not Reportable 01/10/21 09:26 Plt Morphology Comment Not Reportable 01/10/21 09:26 RBC Morphology Not Reportable 01/10/21 09:26 Dimorphic RBCs Not Reportable 01/10/21 09:26 Polychromasia Not Reportable 01/10/21 09:26 Hypochromasia Not Reportable 01/10/21 09:26 Poikilocytosis Not Reportable 01/10/21 09:26 Anisocytosis 1+ 01/10/21 09:26 Microcytosis Not Reportable 01/10/21 09:26 Macrocytosis Not Reportable 01/10/21 09:26 Spherocytes Not Reportable 01/10/21 09:26 Pappenheimer Bodies Not Reportable 01/10/21 09:26 Sickle Cells Not Reportable 01/10/21 09:26 Target Cells Not Reportable 01/10/21 09:26 Tear Drop Cells Not Reportable 01/10/21 09:26 Ovalocytes Not Reportable 01/10/21 09:26 Helmet Cells Not Reportable 01/10/21 09:26 [place]-Herrings Bodies Not Reportable 01/10/21 09:26 [place] Rings Not Reportable 01/10/21 09:26 Jenny Cells Not Reportable 01/10/21 09:26 Bite Cells Not Reportable 01/10/21 09:26 Crenated Cell Not Reportable 01/10/21 09:26 Elliptocytes Not Reportable 01/10/21 09:26 Acanthocytes (Spur) Not Reportable 01/10/21 09:26 Rouleaux Not Reportable 01/10/21 09:26 Hemoglobin C Crystals Not Reportable 01/10/21 09:26 Schistocytes Not Reportable 01/10/21 09:26 Malaria parasites Not Reportable 01/10/21 09:26 Lucas Bodies Not Reportable 01/10/21 09:26 Hem Pathologist Commnt No 01/10/21 09:26 PT 16.9 Sec. (12.2-14.9) H 01/01/21 12:45 INR 1.39 (0.87-1.13) H 01/01/21 12:45 APTT 25.1 Sec. (24.2-36.6) 12/22/20 14:38 ABG pH 7.345 pH Units (7.350-7.450) L 01/07/21 17:14 POC ABG pCO2 41.4 mmHg (32.0-48.0) 01/07/21 03:07 ABG pCO2 40.3 mm Hg 01/07/21 17:14 POC ABG pO2 94.5 mmHg (83-108) 01/07/21 03:07 ABG pO2 67.4 mm Hg (80.0-90.0) L 01/07/21 17:14 POC ABG HCO3 22.7 01/07/21 03:07 ABG HCO3 21.5 mmol/L (20.0-26.0) 01/07/21 17:14 ABG O2 Saturation 94.3 % (95.0-99.0) L 01/07/21 17:14 ABG O2 Content 11.6 (0.0-44) 01/07/21 17:14 POC ABG Base Excess -2.7 01/07/21 03:07 ABG Base Excess -3.9 mmol/L (-2.0-3.0) L 01/07/21 17:14 ABG Hemoglobin 8.9 gm/dl (14.0-18.0) L 01/07/21 17:14 ABG Oxyhemoglobin 96.6 (94-98) 01/07/21 03:07 ABG Carboxyhemoglobin 1.5 % (0.0-5.0) 01/07/21 17:14 ABG Methemoglobin 0.6 % (0.0-1.5) 01/07/21 17:14 ABG Sodium 135.6 mmol/L (136.0-145.0) L 01/07/21 03:07 ABG Potassium 4.0 mmol/L (3.40-4.50) 01/07/21 03:07 ABG Chloride 102.0 mmol/L (98-107) 01/07/21 03:07 ABG Glucose 181 mg/dL (65-95) H 01/07/21 03:07 Oxyhemoglobin 92.3 % (95.0-99.0) L 01/07/21 17:14 Carboxyhemoglobin 0.7 (0.5-1.5) 01/07/21 03:07 FiO2 21 % 01/07/21 17:14 FiO2 % 45.0 01/07/21 03:07 Sodium 136 mmol/L (137-145) L 01/13/21 03:45 Potassium 3.4 mmol/L (3.6-5.0) L 01/13/21 03:45 Chloride 92.6 mmol/L (98-107) L 01/13/21 03:45 Carbon Dioxide 22 mmol/L (22-30) 01/13/21 03:45 Anion Gap 25 mmol/L 01/13/21 03:45 BUN 134 mg/dL (9-20) H 01/13/21 03:45 Creatinine 10.4 mg/dL (0.8-1.3) H 01/13/21 03:45 Estimated GFR 6 ml/min 01/13/21 03:45 BUN/Creatinine Ratio 13 % 01/13/21 03:45 Glucose 126 mg/dL (75-100) H 01/13/21 03:45 POC Glucose 141 mg/dL (70-105) H 01/13/21 11:59 Lactic Acid 1.50 mmol/L (0.7-2.0) 01/02/21 18:00 Calcium 8.3 mg/dL (8.4-10.2) L 01/13/21 03:45 Phosphorus 5.60 mg/dL (2.5-4.5) H 01/13/21 03:45 Magnesium 1.50 mg/dL (1.7-2.3) L 01/13/21 03:45 Total Bilirubin 0.90 mg/dL (0.1-1.2) 01/08/21 04:34 AST 30 units/L (5-40) 01/08/21 04:34 ALT 29 units/L (7-56) 01/08/21 04:34 Alkaline Phosphatase 133 units/L (35-129) H 01/08/21 04:34 Ammonia 30.0 umol/L (25-60) 12/22/20 14:38 Troponin T 0.021 ng/mL (0.00-0.029) 12/22/20 14:38 Total Protein 5.4 g/dL (6.3-8.2) L 01/08/21 04:34 Albumin 1.9 g/dL (3.9-5) L 01/08/21 04:34 Albumin/Globulin Ratio 0.5 % 01/08/21 04:34 Triglycerides 77 mg/dL (2-149) 01/11/21 05:18 Lipase 41 units/L (13-60) 12/22/20 14:38 Procalcitonin > 200.00 ng/mL (<0.15) 12/24/20 15:06 TSH 1.470 mlU/mL (0.270-4.200) 12/28/20 19:44 Arterial Blood Glucose 181 mg/dL (65-95) H 01/07/21 03:07 Arterial Blood Ionized Calcium 4.3 mg/dL (4.6-5.3) L 01/07/21 03:07 Urine Color Yellow (Yellow) 12/22/20 18:53 Urine Turbidity Clear (Clear) 12/22/20 18:53 Urine pH 7.0 (5.0-7.0) 12/22/20 18:53 Ur Specific [place] 1.012 (1.003-1.030) 12/22/20 18:53 Urine Protein >500 mg/dL (Negative) 12/22/20 18:53 Urine Glucose (UA) Neg mg/dL (Negative) 12/22/20 18:53 Urine Ketones Neg mg/dL (Negative) 12/22/20 18:53 Urine Blood Neg (Negative) 12/22/20 18:53 Urine Nitrite Neg (Negative) 12/22/20 18:53 Urine Bilirubin Neg (Negative) 12/22/20 18:53 Urine Urobilinogen < 2.0 mg/dL (<2.0) 12/22/20 18:53 Ur Leukocyte Esterase Neg (Negative) 12/22/20 18:53 Urine WBC (Auto) < 1.0 /HPF (0.0-6.0) 12/22/20 18:53 Urine RBC (Auto) 1.0 /HPF (0.0-6.0) 12/22/20 18:53 Fluid Type Dialysate 12/22/20 Unknown Fluid Color Colorless 12/22/20 Unknown Fluid Appearance Cloudy 12/22/20 Unknown Fluid WBC 208 /mm3 12/22/20 Unknown Fluid RBC 45 /mm3 12/22/20 Unknown Fluid Seg Neutrophils 82.0 % 12/22/20 Unknown Fluid Lymphocytes 11.0 % 12/22/20 Unknown Fluid Reactive Lymphs 0 % 12/22/20 Unknown Fluid Monocytes 7.0 % 12/22/20 Unknown Fluid Eosinophils 0 % 12/22/20 Unknown Fluid Basophils 0 % 12/22/20 Unknown Random Vancomycin 13.7 ug/mL (0-40.0) 12/26/20 Unknown Digoxin 0.8 ng/mL (0.9-2.0) L 01/11/21 05:18 Hepatitis A IgM Ab Non-reactive (NonReactive) 12/23/20 11:38 Hep Bs Antigen Non-reactive (Negative) 12/23/20 11:38 Hep B Core IgM Ab Non-reactive (NonReactive) 12/23/20 11:38 Hepatitis C Antibody Non-reactive (NonReactive) 12/23/20 11:38 Blood Type A POSITIVE 01/06/21 07:10 Antibody Screen Negative 01/06/21 07:10 Crossmatch See Detail 01/06/21 07:10 Jeffery/IV: Voiding Method Incontinent Active Medications - Current Medications Current Medications: Generic Name Dose Route Start Last Admin Trade Name Freq PRN Reason Stop Dose Admin Acetaminophen 650 mg 12/31/20 15:30 12/31/20 15:13 Acetaminophen 650 Mg Rect Supp [place] 650 mg Q6H PRN Administration Non Cardiac Pain or Temp>100.5 Clonidine HCl 0.2 mg 01/11/21 10:00 01/11/21 09:24 Clonidine Tts 0.2 Mg/24 Hr Patch TD 0.2 mg We THOMAS Administration Digoxin 0.125 mg 01/09/21 12:00 01/11/21 11:59 Digoxin 0.5 Mg/2 Ml Inj IV 0.125 mg Q48H THOMAS Administration Diphenhydramine HCl 25 mg 01/08/21 18:23 01/12/21 21:24 Diphenhydramine 50 Mg/Ml Vial IV 25 mg BID THOMAS Administration Famotidine 10 mg 12/24/20 13:00 01/12/21 21:28 Famotidine 20 Mg/2 Ml Inj IV 10 mg BID THOMAS Administration Haloperidol Lactate 5 mg 12/29/20 14:16 01/09/21 01:41 Haloperidol Lactate 5 Mg/1 Ml Inj IV 5 mg Q12H PRN Administration Agitation Heparin Sodium (Porcine) 5,000 unit 12/24/20 10:00 01/12/21 21:26 Heparin 5,000 Unit/1 Ml Vial SUB-Q 5,000 unit Q12HR THOMAS Administration Hydralazine HCl 10 mg 01/10/21 14:00 01/13/21 06:12 Hydralazine 20 Mg/1 Ml Inj IV 10 mg Q4HR THOMAS Administration Hydromorphone HCl 0.25 mg 01/09/21 10:53 01/13/21 09:25 Hydromorphone 1 Mg/1 Ml Inj IV 0.25 mg Q6H PRN Administration Pain , Severe (7-10) Hydrophilic Ointment 1 applic 12/31/20 06:39 01/11/21 21:28 Lip Therapy Vaseline TP 1 applic Q2HR PRN Administration Dry Lips Sodium Chloride 100 mls @ 999 mls/hr 01/12/21 09:20 Nacl 0.9% IV [place] PRN Hypotension Fat Emulsion Intravenous 250 mls @ 21 mls/hr 01/13/21 20:00 Intralipid 20% IV 01/14/21 08:00 DAILY@1999 [facility] Amino Acids/Electrolytes/Dextrose 2,016 mls @ 0 mls/hr 01/13/21 20:00 Tpn Adult IV 01/14/21 08:00 DAILY@1999 [facility] Protocol As Directed Octreotide Acetate 500 mcg/ 101 mls @ 5.05 mls/hr 01/13/21 11:00 01/13/21 12:12 Sodium Chloride IV 25 mcg/hr TITR THOMAS 5.05 mls/hr Administration Protocol 25 MCG/HR Piperacillin Sod/Tazobactam Sod 2.25 gm in 50 mls @ 100 mls/hr 01/13/21 12:00 01/13/21 12:12 Zosyn/Ns 2.25 Gm/50ml IV 100 mls/hr Q8H THOMAS Administration Protocol Insulin Glargine 10 units 01/03/21 10:00 01/13/21 10:11 Insulin Glargine 100 Units/Ml SUB-Q 10 units DAILY THOMAS Administration Insulin Human Lispro 0 unit 01/03/21 12:00 01/13/21 06:13 Insulin Lispro 100 Unit/Ml SUB-Q Not Given Q6HR [facility] Protocol Metoprolol Tartrate 5 mg 12/30/20 12:00 01/13/21 06:12 Metoprolol Tartrate 5 Mg/5 Ml Inj IV 5 mg Q4HR THOMAS Administration Multi-Ingred Cream/Lotion/Oil/Oint 1 applic 12/31/20 06:39 Mineral Oil/Petrolatum, White Ophth Oint 3.5 Gm OU Q4HR PRN Dry Eye(s) Scopolamine 1 each 01/15/21 11:00 Scopolamine Transdermal Patch 72 Hr TD Q3D THOMAS Sodium Chloride 10 ml 12/22/20 22:00 01/12/21 21:31 Sodium Chloride 0.9% 10 Ml Flush Syringe IV 10 ml BID THOMAS Administration Sodium Chloride 10 ml 12/22/20 19:42 01/09/21 17:27 Sodium Chloride 0.9% 10 Ml Flush Syringe IV 10 ml PRN PRN Administration LINE FLUSH Nutrition/Malnutrition Assess - Dietary Evaluation Nutrition/Malnutrition Findings: Nutrition Notes Start: 12/24/20 12:36 Freq: Status: Active Protocol: Document 01/13/21 11:12 KAY (Rec: 01/13/21 11:17 KAY [id number]) Co-Sign 01/13/21 11:12 JUAN Nutrition Notes Initial or Follow up Reassessment Current Diagnosis CKD (stage V CKD),Sepsis, Hypertension,Heart Failure Other Pertinent Diagnosis Peritonitis, SBO s/p resection Current Diet TPN at 63/135/63 ml/hr Labs/Tests Na 136 K 3.4 Cl 92.6 P 5.6 Mg 1.5 BUN 134 Cr 10.4 Pertinent Medications Reviewed Height 5 ft 7 in Weight 86.6 kg [place] Body Weight (kg) 67.27 BMI 29.9 Weight Status Obese Subjective/Other Information TPN Day 19. Percent of energy/protein needs met: 100%/100% Burn Absent Trauma Absent Current % PO Negligible Minimum of two criteria No #1 Nutrition Diagnosis Inadequate oral intake Diagnosis Progress(for reassessment Continues documentation) Is patient on ventilator? No Is Patient Ambulatory and/or Out of Bed No REE-([place]-confined to bed) 1954.464 Kcal/Kg value to use for calculation 19 Approximate Energy Requirements Using 1645 kcal/Kg Calculation Used for Recommendations Kcal/kg Additional Notes Pro needs: 101-121 g/day (1.25 -1.5 g/kg AdjBW, 81kg) Fluid needs per MD. Nutrition Intervention Change Diet Order: Continue CPN Nutrition Support: Cyclic CPN at 108/180/108 ml/ hr for 12 hr: 8meq Mg, MVI, lipids. Osmolality: 1600 Kcal 2,174 Protein (gm) 121 Carbohydrates (gm) 350 Fat (gm) 50 Fluid (mL) 2,266 Goal #1 Meet at least 75% of estimated energy and protein needs via CPN Anticipated Discharge Needs: TPN Follow-Up By: 01/14/21 Additional Comments Labs in AM: BMP, Mag, Phos
[2021-01-13] MEDS: DIGOXIN 0.5 MG/2 ML INJ IV SCH (12:34)
--- NOTE | 2021-01-13 13:39 | Progress Note ---
Assessment and Plan Cultures: 12/22/2020 blood culture: Streptococcus bovis, Prevotella 12/22/2020 PD fluid culture: No growth 12/24/2020 tracheal aspirate culture: Gwendolyn albicans (likely a colonizer) 12/24/2020 blood culture: No growth 12/31/2020 sputum culture: No growth A/P: 60-year-old male with ESRD on PD, Crohn's disease, CHF, gastroesophageal reflux disease was admitted to the hospital with complaints of abdominal pain and fever: #Severe sepsis with shock: Remarkable improvement, off pressors (on Levophed and vasopressin), leukocytosis improving. Secondary to small bowel obstruction/necrotic bowel with associated peritonitis. Status post exploratory laparotomy on 12/23/2020 with extensive lysis, primary anastomosis, found to have necrotic segment of small bowel. #Small bowel obstruction/necrotic bowel: with concern for PD associated peritonitis: Nephrology and general surgery following. Status post exploratory laparotomy on 12/23/2020 with extensive lysis, primary anastomosis, found to have necrotic segment of small bowel. PD catheter remains in place. S/p ex lap, resection of perforated anastamosis, washout and abthera wound vac placement on 01/01. Repeat CT abdomen shows no new abscesses, noted small free fluid. S/p Exploratory laparotomy, Right hemicolectomy, Peritoneal lavage, Partial ome ntectomy, ABThera wound VAC placement on 01/03/2021. #Streptococcus bovis bacteremia and Prevotella bacteremia: secondary to above. TTE without obvious vegetations. Repeat blood cultures negative. #ESRD: Renally dose antibiotics. Used to be on PD, cath remains in place. Now on HD. #Elevated LFTs: Secondary to sepsis. #Acute respiratory failure: extubated, then re-intubated 12/31/2020. #Anemia: Severe. Recs: -Completed antibiotics -On TPN -Monitor off abx -Given elevated recommend repeat CT abdo/pelvis with contrast. Given ESRD recommend co-ordinating with nephrology/dialysis MD [facility] O: [phone] F: [phone] Subjective Date of service: 01/13/21 Principal diagnosis: Ac hypoxemic resp failure; Severe Sepsis; Peritonitis; Acut e SBO; ESRD; CHF Interval history: Afebrile, white count steady at 17.6 Objective - Exam Narrative Exam: Narrative Exam: General appearance: Awake, alert Eyes: anicteric sclerae, moist conjunctivae; no lid-lag; PERRLA HENT: Normocephalic, Atraumatic; normal external ears, nares open, oropharynx limited with endotracheal tube, tongue out with edema Neck: supple, tracheal midline, no JVD Lungs: Coarse breath sounds bilaterally CV: Tachycardic Abdomen: Soft, tender. Midline abdominal wound Extremities: no edema, no cyanosis Skin: No rash. Psych: No agitation Neuro: No agitation - Constitutional Vitals: Vital Signs Temp Pulse Resp BP Pulse Ox 99.1 F 79 18 143/74 98 01/13/21 13:06 01/13/21 13:06 01/13/21 13:06 01/13/21 13:06 01/13/21 13:00 Temperature -Last 24 Hours Temperature 99.1 F Temperature 99.1 F Temperature 98.5 F Temperature 98.4 F Temperature 97.6 F Temperature 97.6 F Temperature 98.4 F Temperature 98.4 F - Labs CBC & Chem 7: 01/13/21 03:45 01/13/21 03:45 Labs: Abnormal lab results 01/12/21 01/12/21 01/12/21 Range/Units 13:34 16:59 23:06 WBC (4.5-11.0) K/mm3 RBC (3.65-5.03) M/mm3 Hgb (11.8-15.2) gm/dl Hct (35.5-45.6) % MCHC (32-34) % RDW (13.2-15.2) % Lymph % (Auto) (13.4-35.0) % [place] % (Auto) (0.0-7.3) % Lymph # (Auto) (1.2-5.4) K/mm3 [place] # (Auto) (0.0-0.8) K/mm3 Seg Neutrophils % (40.0-70.0) % Seg Neutrophils # (1.8-7.7) K/mm3 Sodium (137-145) mmol/L Potassium (3.6-5.0) mmol/L Chloride (98-107) mmol/L BUN (9-20) mg/dL Creatinine (0.8-1.3) mg/dL Glucose (75-100) mg/dL POC Glucose 134 H 108 H 135 H (70-105) mg/dL Calcium (8.4-10.2) mg/dL Phosphorus (2.5-4.5) mg/dL Magnesium (1.7-2.3) mg/dL 01/13/21 01/13/21 01/13/21 Range/Units 03:45 03:45 05:55 WBC 17.6 H (4.5-11.0) K/mm3 RBC 3.33 L (3.65-5.03) M/mm3 Hgb 10.2 L (11.8-15.2) gm/dl Hct 29.5 L (35.5-45.6) % MCHC 35 H (32-34) % RDW 15.5 H (13.2-15.2) % Lymph % (Auto) 4.4 L (13.4-35.0) % [place] % (Auto) 10.3 H (0.0-7.3) % Lymph # (Auto) 0.8 L (1.2-5.4) K/mm3 [place] # (Auto) 1.8 H (0.0-0.8) K/mm3 Seg Neutrophils % 84.2 H (40.0-70.0) % Seg Neutrophils # 14.8 H (1.8-7.7) K/mm3 Sodium 136 L (137-145) mmol/L Potassium 3.4 L (3.6-5.0) mmol/L Chloride 92.6 L (98-107) mmol/L BUN 134 H (9-20) mg/dL Creatinine 10.4 H (0.8-1.3) mg/dL Glucose 126 H (75-100) mg/dL POC Glucose 134 H (70-105) mg/dL Calcium 8.3 L (8.4-10.2) mg/dL Phosphorus 5.60 H (2.5-4.5) mg/dL Magnesium 1.50 L (1.7-2.3) mg/dL 01/13/21 Range/Units 11:59 WBC (4.5-11.0) K/mm3 RBC (3.65-5.03) M/mm3 Hgb (11.8-15.2) gm/dl Hct (35.5-45.6) % MCHC (32-34) % RDW (13.2-15.2) % Lymph % (Auto) (13.4-35.0) % [place] % (Auto) (0.0-7.3) % Lymph # (Auto) (1.2-5.4) K/mm3 [place] # (Auto) (0.0-0.8) K/mm3 Seg Neutrophils % (40.0-70.0) % Seg Neutrophils # (1.8-7.7) K/mm3 Sodium (137-145) mmol/L Potassium (3.6-5.0) mmol/L Chloride (98-107) mmol/L BUN (9-20) mg/dL Creatinine (0.8-1.3) mg/dL Glucose (75-100) mg/dL POC Glucose 141 H (70-105) mg/dL Calcium (8.4-10.2) mg/dL Phosphorus (2.5-4.5) mg/dL Magnesium (1.7-2.3) mg/dL
--- NOTE | 2021-01-13 13:53 | Progress Note ---
Assessment and Plan Assessment: * ESRD previouaslyon peritoneal dialysis; now on back up HD (on peritoneal dialysis for 2 years with no history of peritonitis) * Small bowel obstruction --s/p ex-lap with jejuno-ileal anastamosis --s/p ex lap with extensive lysis of adhesions and two small bowel resections with primary anastamosis for SBO with necrotic segment small bowel. --s/p ex lap, resection of perforated anastamosis, washout and abthera wound vac placement. --s/p ex lap with right hemicolectomy. * Acute respiratory failure * Septic shock - resolved * Bacteremia - resolved * Hyperkalemia * Anemia of ESRD * Atrial fibrilation, new onset * Post op ileus Plan: * Continue HD MWF via left IJ permcath (12/27) * BUN noted - adjust Qb and Qd * 4K bath with dialysis * UF as tolerated * Rate control per cardiology * Abx per primary team/ID * Nutrition per primary team * Maintatin MAP >65 * AM labs * Note recommendation for CT with contrast. HD should not delay care/diagnosis - do not hold CT for HD coordination if study is needed. Subjective Date of service: 01/13/21 Principal diagnosis: Ac hypoxemic resp failure; Severe Sepsis; Peritonitis; Acute SBO; ESRD; CHF Interval history: No acute events overnight. Objective - Vital Signs Vital signs: Vital Signs - 12hr 01/13/21 01/13/21 01/13/21 02:00 03:00 04:00 Temperature 97.6 F Pulse Rate 69 72 72 Pulse Rate [ 72 From Monitor] Respiratory 16 17 16 Rate Blood Pressure 155/68 164/68 161/75 O2 Sat by Pulse 98 97 97 Oximetry 01/13/21 01/13/21 01/13/21 05:00 06:00 06:12 Temperature Pulse Rate 89 77 78 Pulse Rate [ From Monitor] Respiratory 21 18 Rate Blood Pressure 167/75 164/72 164/72 O2 Sat by Pulse 98 98 Oximetry 01/13/21 01/13/21 01/13/21 07:00 07:28 07:53 Temperature 98.4 F Pulse Rate 77 Pulse Rate [ From Monitor] Respiratory 19 Rate Blood Pressure 161/64 O2 Sat by Pulse 97 99 Oximetry 01/13/21 01/13/21 01/13/21 08:00 09:00 09:25 Temperature 98.5 F Pulse Rate 81 76 75 Pulse Rate [ 72 From Monitor] Respiratory 18 14 17 Rate Blood Pressure 158/68 160/73 161/68 O2 Sat by Pulse 99 97 Oximetry 01/13/21 01/13/21 01/13/21 09:30 09:45 10:00 Temperature Pulse Rate 82 84 85 Pulse Rate [ From Monitor] Respiratory 17 Rate Blood Pressure 165/70 159/67 159/69 O2 Sat by Pulse Oximetry 01/13/21 01/13/21 01/13/21 10:15 10:30 10:45 Temperature Pulse Rate 86 87 86 Pulse Rate [ From Monitor] Respiratory Rate Blood Pressure 142/65 141/70 148/64 O2 Sat by Pulse Oximetry 01/13/21 01/13/21 01/13/21 11:00 11:15 11:30 Temperature Pulse Rate 83 86 87 Pulse Rate [ From Monitor] Respiratory 16 Rate Blood Pressure 143/60 145/66 136/67 O2 Sat by Pulse Oximetry 01/13/21 01/13/21 01/13/21 11:45 12:00 12:15 Temperature 99.1 F Pulse Rate 85 88 62 Pulse Rate [ 72 From Monitor] Respiratory 18 Rate Blood Pressure 139/64 138/75 148/68 O2 Sat by Pulse 98 Oximetry 01/13/21 01/13/21 01/13/21 12:30 12:45 13:00 Temperature Pulse Rate 69 88 96 H Pulse Rate [ From Monitor] Respiratory 14 Rate Blood Pressure 148/73 133/78 138/69 O2 Sat by Pulse 98 Oximetry 01/13/21 01/13/21 13:02 13:06 Temperature 99.1 F Pulse Rate 90 79 Pulse Rate [ From Monitor] Respiratory 18 Rate Blood Pressure 138/69 143/74 O2 Sat by Pulse Oximetry - General Appearance General appearance: well-developed, well-nourished EENT: ATNC Respiratory: Present: Clear to Ascultation Cardiology: regular, S1S2 Gastrointestinal: normal, no tenderness, no distended Integumentary: no rash, warm and dry Psychiatric: cooperative - Lab 01/13/21 03:45 01/13/21 03:45 Most recent lab results ABG pH 7.345 pH Units (7.350-7.450) L 01/07/21 17:14 ABG pCO2 40.3 mm Hg 01/07/21 17:14 ABG pO2 67.4 mm Hg (80.0-90.0) L 01/07/21 17:14 ABG HCO3 21.5 mmol/L (20.0-26.0) 01/07/21 17:14 ABG O2 Saturation 94.3 % (95.0-99.0) L 01/07/21 17:14 Calcium 8.3 mg/dL (8.4-10.2) L 01/13/21 03:45 Phosphorus 5.60 mg/dL (2.5-4.5) H 01/13/21 03:45 Magnesium 1.50 mg/dL (1.7-2.3) L 01/13/21 03:45 Medications & Allergies - Medications Allergies/Adverse Reactions: Allergies No Known Allergies Allergy (Verified 06/09/20 15:27) Home Medications: Home Medications Medication Instructions Recorded Confirmed Last Taken Type Albuterol Mdi (or & Nicu Only) 2 puff IH QID PRN #1 inhalation 04/01/17 11/01/20 10/31/20 09:00 Rx [ProAir HFA Inhaler] Calcium Acetate 667 mg PO DAILY 04/20/20 11/01/20 10/31/20 09:00 History Centrum Men's Tablet 1 tab PO DAILY 04/20/20 11/01/20 10/31/20 09:00 History Cinacalcet 30 mg PO DAILY 04/20/20 11/01/20 10/31/20 09:00 History Dialyvite with Zinc Tablet 1 tab PO DAILY 04/20/20 11/01/20 10/31/20 09:00 History Magnesium 250 mg PO BID 04/20/20 11/01/20 10/31/20 17:00 History Triamcinolone 0.1% 1 1000units TRANSDERMA DAILY 04/20/20 11/01/20 10/31/20 09:00 History Vit B12/Folic Acid/B6/Aa No.15 1,000 mg PO DAILY 04/20/20 11/01/20 10/31/20 09:00 History amLODIPine 10 mg PO DAILY 06/09/20 11/01/20 10/31/20 09:00 History AtorvaSTATin 40 mg PO HS 11/01/20 11/01/20 10/31/20 21:00 History Benadryl 25 mg PO HS 11/01/20 11/01/20 10/31/20 21:00 History Diclofenac 1 TRANSDERMA QID 11/01/20 10/31/20 19:00 History Fluticasone Propionate 1 spray INTRANASAL DAILY 11/01/20 11/01/20 10/31/20 09:00 History Vitamin D3 2,000 units 11/01/20 10/31/20 09:00 History carvediloL 12.5 mg PO DAILY 11/01/20 11/01/20 10/31/20 09:00 History hydrALAZINE 100 mg PO TID 11/01/20 11/01/20 10/31/20 19:00 History Active Medications: Generic Name Dose Route Start Last Admin Trade Name Freq PRN Reason Stop Dose Admin Acetaminophen 650 mg 12/31/20 15:30 12/31/20 15:13 Acetaminophen 650 Mg Rect Supp [place] 650 mg Q6H PRN Administration Non Cardiac Pain or Temp>100.5 Clonidine HCl 0.2 mg 01/11/21 10:00 01/11/21 09:24 Clonidine Tts 0.2 Mg/24 Hr Patch TD 0.2 mg We THOMAS Administration Digoxin 0.125 mg 01/09/21 12:00 01/13/21 12:34 Digoxin 0.5 Mg/2 Ml Inj IV 0.125 mg Q48H THOMAS Administration Diphenhydramine HCl 25 mg 01/08/21 18:23 01/13/21 09:30 Diphenhydramine 50 Mg/Ml Vial IV 25 mg BID THOMAS Administration Famotidine 10 mg 12/24/20 13:00 01/13/21 09:30 Famotidine 20 Mg/2 Ml Inj IV 10 mg BID THOMAS Administration Haloperidol Lactate 5 mg 12/29/20 14:16 01/09/21 01:41 Haloperidol Lactate 5 Mg/1 Ml Inj IV 5 mg Q12H PRN Administration Agitation Heparin Sodium (Porcine) 5,000 unit 12/24/20 10:00 01/13/21 09:30 Heparin 5,000 Unit/1 Ml Vial SUB-Q 5,000 unit Q12HR THOMAS Administration Hydralazine HCl 10 mg 01/10/21 14:00 01/13/21 13:34 Hydralazine 20 Mg/1 Ml Inj IV 10 mg Q4HR THOMAS Administration Hydromorphone HCl 0.25 mg 01/09/21 10:53 01/13/21 13:26 Hydromorphone 1 Mg/1 Ml Inj IV 0.25 mg Q6H PRN Administration Pain , Severe (7-10) Hydrophilic Ointment 1 applic 12/31/20 06:39 01/11/21 21:28 Lip Therapy Vaseline TP 1 applic Q2HR PRN Administration Dry Lips Sodium Chloride 100 mls @ 999 mls/hr 01/12/21 09:20 Nacl 0.9% IV [place] PRN Hypotension Fat Emulsion Intravenous 250 mls @ 21 mls/hr 01/13/21 20:00 Intralipid 20% IV 01/14/21 08:00 DAILY@1999 [facility] Amino Acids/Electrolytes/Dextrose 2,016 mls @ 0 mls/hr 01/13/21 20:00 Tpn Adult IV 01/14/21 08:00 DAILY@1999 [facility] Protocol As Directed Octreotide Acetate 500 mcg/ 101 mls @ 5.05 mls/hr 01/13/21 11:00 01/13/21 12:12 Sodium Chloride IV 25 mcg/hr TITR THOMAS 5.05 mls/hr Administration Protocol 25 MCG/HR Piperacillin Sod/Tazobactam Sod 2.25 gm in 50 mls @ 100 mls/hr 01/13/21 12:00 01/13/21 12:12 Zosyn/Ns 2.25 Gm/50ml IV 100 mls/hr Q8H [facility] Administration Protocol Magnesium Sulfate 2 gm in 50 mls @ 25 mls/hr 01/13/21 14:00 01/13/21 13:28 Magnesium Sulfate 2gm/50ml IV 01/13/21 15:59 25 mls/hr ONCE ONE Administration Insulin Glargine 10 units 01/03/21 10:00 01/13/21 10:11 Insulin Glargine 100 Units/Ml SUB-Q 10 units DAILY [facility] Administration Insulin Human Lispro 0 unit 01/03/21 12:00 01/13/21 12:33 Insulin Lispro 100 Unit/Ml SUB-Q Not Given Q6HR [facility] Protocol Metoprolol Tartrate 5 mg 12/30/20 12:00 01/13/21 13:34 Metoprolol Tartrate 5 Mg/5 Ml Inj IV 5 mg Q4HR [facility] Administration Multi-Ingred Cream/Lotion/Oil/Oint 1 applic 12/31/20 06:39 Mineral Oil/Petrolatum, White Ophth Oint 3.5 Gm OU Q4HR PRN Dry Eye(s) Scopolamine 1 each 01/15/21 11:00 Scopolamine Transdermal Patch 72 Hr TD Q3D THOMAS Sodium Chloride 10 ml 12/22/20 22:00 01/13/21 09:34 Sodium Chloride 0.9% 10 Ml Flush Syringe IV 10 ml BID THOMAS Administration Sodium Chloride 10 ml 12/22/20 19:42 01/09/21 17:27 Sodium Chloride 0.9% 10 Ml Flush Syringe IV 10 ml PRN PRN Administration LINE FLUSH
--- NOTE | 2021-01-13 13:58 | Progress Note ---
Assessment and Plan Acute hypoxemic respiratory failure, on mechanical ventilatory support. Severe Sepsis Peritonitis Acute small-bowel obstruction with tissue necrosis. End-stage renal disease, on dialysis. Hypertension. Crohn's disease. Gastroesophageal reflux disease. Heart failure with reduced ejection fraction. Hyperkalemia. Anemia that is normocytic. Lactic acidosis. Oropharyngeal dysphagia - continue Robinul to 0.2mg IV q8h re: NPO status - continue benadryl but re-evaluate in 24 hours - continue total parenteral nutrition - prn vasopressors for target MAP > 65 mmHg - continue wound care per RN/WCN - continue care as below otherwise; - continue to wean supplemental oxygen for target O2 sat's > 92% acutely - aspiration precautions - continue bronchodilators with pulmonary hygiene per RT - wean per pulmonary driven protocols otherwise - HD/UF per nephrology prescription for toxin and volume control - avoid nephrotoxins, renally dose all medications - continue accuchecks with glycemic control per SSI (While critically ill target blood glucose of 140-180 mg/dL; avoid hypoglycemia) - sedation prn for target RASS 0 to -1 - continue to avoid benzodiazepine's, reduce the possibility of delirium - complete AB's per ID rec's - prn analgesia per CPOT score - Maintenance of sleep-wake cycle, avoid delirium - enteral nutritional support at goal rate as tolerated (once cleared by surgeon) - G.I. & VTE prophylaxis - PT/OT/ROM exercises - continue mobility protocols for pressure ulcer prophylaxis - Monitor hemodynamics closely - continue other care per attending / other consultants - discharge planning ongoing concurrently .... Re-evaluate in am & prn CONDITION: FAIR PROGNOSIS: GUARDED CODE STATUS: FULL CODE Subjective Date of service: 01/12/21 Principal diagnosis: Ac hypoxemic resp failure; Severe Sepsis; Peritonitis; Acute SBO; ESRD; CHF Interval history: Patient is seen today for: Ac hypoxemic resp failure; Severe Sepsis; Peritonitis; Acute SBO; ESRD on Dialysis; HTN; Crohn's disease; HFrEF Seen and examined at bedside; 24hour events reviewed; nursing and respiratory care staff consulted; no adverse overnight events reported to me; resting in bed; still with mild macroglossia without overt respiratory compromise; still with abdominal distention without guarding; tentatively HD/UF in am Objective Vital Signs - 12hr 01/12/21 01/12/21 01/12/21 02:01 02:47 02:48 Temperature Pulse Rate 75 79 73 Pulse Rate [ From Monitor] Respiratory 16 Rate Blood Pressure 150/80 131/77 131/77 O2 Sat by Pulse 98 Oximetry 01/12/21 01/12/21 01/12/21 03:01 04:00 04:01 Temperature 98.5 F Pulse Rate 81 87 Pulse Rate [ 87 From Monitor] Respiratory 20 20 20 Rate Blood Pressure 146/86 156/73 O2 Sat by Pulse 98 98 98 Oximetry 01/12/21 01/12/21 01/12/21 04:40 05:00 06:00 Temperature Pulse Rate 80 78 73 Pulse Rate [ From Monitor] Respiratory 36 H 20 Rate Blood Pressure 156/73 159/75 O2 Sat by Pulse 98 Oximetry 01/12/21 01/12/21 01/12/21 06:40 06:41 07:00 Temperature Pulse Rate 79 76 87 Pulse Rate [ From Monitor] Respiratory 14 Rate Blood Pressure 159/75 159/75 153/75 O2 Sat by Pulse 98 Oximetry 01/12/21 01/12/21 01/12/21 08:00 08:01 09:00 Temperature 99.6 F Pulse Rate 83 90 87 Pulse Rate [ From Monitor] Respiratory 22 20 Rate Blood Pressure 154/75 156/77 O2 Sat by Pulse 98 100 Oximetry 01/12/21 01/12/21 01/12/21 10:00 10:14 12:00 Temperature 99.7 F H Pulse Rate 84 85 Pulse Rate [ From Monitor] Respiratory 18 Rate Blood Pressure 153/73 153/73 O2 Sat by Pulse 98 Oximetry 01/12/21 12:46 Temperature Pulse Rate Pulse Rate [ From Monitor] Respiratory Rate Blood Pressure O2 Sat by Pulse 99 Oximetry Constitutional: no acute distress, other (elderly male with milldy increased respiratory effort) Eyes: non-icteric ENT: oropharynx moist, oropharyngeal exudate pre (improved), other (macroglossia improved) Neck: supple, no lymphadenopathy, no JVD Effort: normal Ascultation: Bilateral: diminished breath sounds, rhonchi Percussion: Bilateral: not dull Cardiovascular: regular rate and rhythm Gastrointestinal: hypoactive bowel sounds, soft, non-tender, non-distended (protuberant), other (Midline abdominal incision ) Integumentary: other (Midline abdominal incision ) Extremities: no cyanosis, no edema, pulses normal, no ischemia or petechiae Neurologic: non-focal exam (grossly), pupils equal and round, CN II-XII normal, motor strength normal and (sedated) Psychiatric: mood appropriate, affect normal CBC and BMP: 01/13/21 03:45 01/13/21 03:45 ABG, PT/INR, D-dimer: ABG ABG pH 7.345 pH Units (7.350-7.450) L 01/07/21 17:14 POC ABG pCO2 41.4 mmHg (32.0-48.0) 01/07/21 03:07 ABG pCO2 40.3 mm Hg 01/07/21 17:14 POC ABG pO2 94.5 mmHg (83-108) 01/07/21 03:07 ABG pO2 67.4 mm Hg (80.0-90.0) L 01/07/21 17:14 POC ABG HCO3 22.7 01/07/21 03:07 ABG O2 Saturation 94.3 % (95.0-99.0) L 01/07/21 17:14 PT/INR, D-dimer PT 16.9 Sec. (12.2-14.9) H 01/01/21 12:45 INR 1.39 (0.87-1.13) H 01/01/21 12:45 Abnormal lab findings: Abnormal Labs 12/22/20 12/22/20 12/22/20 14:38 14:38 14:38 WBC RBC Hgb 11.2 L Hct 35.0 L MCV MCHC RDW 16.7 H Plt Count Lymph % (Auto) [place] % (Auto) Lymph # (Auto) [place] # (Auto) Seg Neutrophils % Seg Neuts % (Manual) 94.0 H Lymphocytes % (Manual) 5.0 L Monocytes % (Manual) Seg Neutrophils # Seg Neutrophils # Man Lymphocytes # (Manual) 0.3 L Monocytes # (Manual) PT INR ABG pH POC ABG pCO2 POC ABG pO2 ABG pO2 ABG HCO3 ABG O2 Saturation ABG Base Excess ABG Hemoglobin ABG Oxyhemoglobin ABG Sodium ABG Potassium ABG Chloride ABG Glucose Oxyhemoglobin Sodium Potassium Chloride Carbon Dioxide BUN 58 H Creatinine 13.2 H Glucose 113 H POC Glucose Lactic Acid 3.60 H* Calcium Phosphorus Magnesium Total Bilirubin 1.30 H AST ALT Alkaline Phosphatase 155 H Total Protein Albumin Triglycerides Arterial Blood Glucose Arterial Blood Ionized Calcium Digoxin Crossmatch 12/22/20 12/22/20 12/23/20 16:26 17:47 05:22 WBC RBC Hgb Hct MCV MCHC RDW Plt Count Lymph % (Auto) [place] % (Auto) Lymph # (Auto) [place] # (Auto) Seg Neutrophils % Seg Neuts % (Manual) Lymphocytes % (Manual) Monocytes % (Manual) Seg Neutrophils # Seg Neutrophils # Man Lymphocytes # (Manual) Monocytes # (Manual) PT INR ABG pH POC ABG pCO2 POC ABG pO2 ABG pO2 ABG HCO3 ABG O2 Saturation ABG Base Excess ABG Hemoglobin ABG Oxyhemoglobin ABG Sodium ABG Potassium ABG Chloride ABG Glucose Oxyhemoglobin Sodium Potassium Chloride Carbon Dioxide BUN Creatinine Glucose POC Glucose Lactic Acid 2.80 H* 3.10 H* 2.30 H* Calcium Phosphorus Magnesium Total Bilirubin AST ALT Alkaline Phosphatase Total Protein Albumin Triglycerides Arterial Blood Glucose Arterial Blood Ionized Calcium Digoxin Crossmatch 12/23/20 12/23/20 12/23/20 05:22 05:22 06:35 WBC 12.1 H RBC Hgb 11.0 L Hct 33.7 L MCV MCHC RDW 16.9 H Plt Count Lymph % (Auto) [place] % (Auto) Lymph # (Auto) [place] # (Auto) Seg Neutrophils % Seg Neuts % (Manual) 93.0 H Lymphocytes % (Manual) 1.0 L Monocytes % (Manual) Seg Neutrophils # Seg Neutrophils # Man 11.3 H Lymphocytes # (Manual) 0.1 L Monocytes # (Manual) PT INR ABG pH POC ABG pCO2 POC ABG pO2 ABG pO2 ABG HCO3 ABG O2 Saturation ABG Base Excess ABG Hemoglobin ABG Oxyhemoglobin ABG Sodium ABG Potassium ABG Chloride ABG Glucose Oxyhemoglobin Sodium Potassium 5.7 H D Chloride Carbon Dioxide BUN 73 H Creatinine 14.2 H Glucose POC Glucose Lactic Acid 2.30 H* Calcium 7.9 L Phosphorus Magnesium Total Bilirubin 1.40 H AST 119 H ALT 130 H Alkaline Phosphatase 183 H Total Protein 6.1 L Albumin 3.6 L Triglycerides Arterial Blood Glucose Arterial Blood Ionized Calcium Digoxin Crossmatch 12/23/20 12/23/20 12/23/20 11:40 13:53 16:47 WBC RBC Hgb 10.0 L Hct 30.4 L MCV MCHC RDW Plt Count Lymph % (Auto) [place] % (Auto) Lymph # (Auto) [place] # (Auto) Seg Neutrophils % Seg Neuts % (Manual) Lymphocytes % (Manual) Monocytes % (Manual) Seg Neutrophils # Seg Neutrophils # Man Lymphocytes # (Manual) Monocytes # (Manual) PT INR ABG pH POC ABG pCO2 POC ABG pO2 137.5 H ABG pO2 ABG HCO3 ABG O2 Saturation ABG Base Excess ABG Hemoglobin 9.7 L ABG Oxyhemoglobin ABG Sodium 134.1 L ABG Potassium 6.6 H ABG Chloride ABG Glucose 103 H Oxyhemoglobin Sodium Potassium Chloride Carbon Dioxide BUN Creatinine Glucose POC Glucose Lactic Acid Calcium Phosphorus Magnesium Total Bilirubin AST ALT Alkaline Phosphatase Total Protein Albumin Triglycerides Arterial Blood Glucose 103 H Arterial Blood Ionized Calcium 3.8 L Digoxin Crossmatch See Detail 12/23/20 12/23/20 12/24/20 20:35 20:40 01:20 WBC RBC Hgb Hct MCV MCHC RDW Plt Count Lymph % (Auto) [place] % (Auto) Lymph # (Auto) [place] # (Auto) Seg Neutrophils % Seg Neuts % (Manual) Lymphocytes % (Manual) Monocytes % (Manual) Seg Neutrophils # Seg Neutrophils # Man Lymphocytes # (Manual) Monocytes # (Manual) PT INR ABG pH 7.252 L POC ABG pCO2 POC ABG pO2 ABG pO2 50.1 L ABG HCO3 ABG O2 Saturation 81.1 L ABG Base Excess -5.9 L ABG Hemoglobin 12.1 L ABG Oxyhemoglobin ABG Sodium ABG Potassium ABG Chloride ABG Glucose Oxyhemoglobin 78.6 L Sodium 134 L Potassium 6.9 H* D 6.3 H* Chloride Carbon Dioxide 18 L 20 L BUN 87 H 91 H Creatinine 15.3 H 15.3 H Glucose 103 H POC Glucose Lactic Acid Calcium 6.9 L 7.5 L Phosphorus Magnesium Total Bilirubin AST ALT Alkaline Phosphatase Total Protein Albumin Triglycerides Arterial Blood Glucose Arterial Blood Ionized Calcium Digoxin Crossmatch 12/24/20 12/24/20 12/24/20 04:00 10:29 10:29 WBC RBC 3.49 L Hgb 10.5 L Hct 31.2 L MCV MCHC RDW 17.5 H Plt Count 124 L Lymph % (Auto) 3.7 L [place] % (Auto) 9.8 H Lymph # (Auto) 0.2 L [place] # (Auto) Seg Neutrophils % 85.9 H Seg Neuts % (Manual) Lymphocytes % (Manual) Monocytes % (Manual) Seg Neutrophils # Seg Neutrophils # Man Lymphocytes # (Manual) Monocytes # (Manual) PT INR ABG pH POC ABG pCO2 28.1 L POC ABG pO2 ABG pO2 ABG HCO3 ABG O2 Saturation ABG Base Excess ABG Hemoglobin ABG Oxyhemoglobin ABG Sodium 133.9 L ABG Potassium 5.3 H ABG Chloride 108.0 H ABG Glucose Oxyhemoglobin Sodium Potassium 5.6 H Chloride Carbon Dioxide 19 L BUN 99 H Creatinine 16.9 H Glucose 52 L POC Glucose Lactic Acid Calcium 7.6 L Phosphorus Magnesium Total Bilirubin 3.50 H AST 67 H ALT 71 H Alkaline Phosphatase Total Protein 3.5 L D Albumin 2.1 L Triglycerides Arterial Blood Glucose Arterial Blood Ionized Calcium 4.0 L Digoxin Crossmatch 12/25/20 12/25/20 12/25/20 03:33 04:00 04:00 WBC 3.8 L RBC 2.90 L Hgb 8.6 L Hct 25.7 L MCV MCHC RDW 16.7 H Plt Count 113 L Lymph % (Auto) [place] % (Auto) Lymph # (Auto) [place] # (Auto) Seg Neutrophils % Seg Neuts % (Manual) Lymphocytes % (Manual) Monocytes % (Manual) Seg Neutrophils # Seg Neutrophils # Man Lymphocytes # (Manual) Monocytes # (Manual) PT INR ABG pH 7.544 H POC ABG pCO2 28.2 L POC ABG pO2 62.8 L ABG pO2 ABG HCO3 ABG O2 Saturation ABG Base Excess ABG Hemoglobin 9.3 L ABG Oxyhemoglobin 93.0 L ABG Sodium 130.3 L ABG Potassium ABG Chloride ABG Glucose 97 H Oxyhemoglobin Sodium Potassium Chloride Carbon Dioxide BUN 62 H Creatinine 11.4 H Glucose POC Glucose Lactic Acid Calcium 7.7 L Phosphorus 5.00 H Magnesium Total Bilirubin AST ALT Alkaline Phosphatase Total Protein Albumin Triglycerides Arterial Blood Glucose 97 H Arterial Blood Ionized Calcium 3.9 L Digoxin Crossmatch 12/26/20 12/26/20 12/27/20 04:46 Unknown 03:40 WBC 4.1 L RBC 2.61 L Hgb 7.8 L Hct 23.4 L MCV MCHC RDW 17.1 H Plt Count 119 L Lymph % (Auto) 5.3 L [place] % (Auto) 10.6 H Lymph # (Auto) 0.2 L [place] # (Auto) Seg Neutrophils % 78.8 H Seg Neuts % (Manual) Lymphocytes % (Manual) Monocytes % (Manual) Seg Neutrophils # Seg Neutrophils # Man Lymphocytes # (Manual) Monocytes # (Manual) PT INR ABG pH 7.333 L 7.332 L POC ABG pCO2 POC ABG pO2 ABG pO2 ABG HCO3 26.9 H ABG O2 Saturation ABG Base Excess -2.4 L ABG Hemoglobin 6.8 L 7.2 L ABG Oxyhemoglobin ABG Sodium ABG Potassium ABG Chloride ABG Glucose Oxyhemoglobin 93.0 L 93.1 L Sodium Potassium Chloride Carbon Dioxide BUN Creatinine Glucose POC Glucose Lactic Acid Calcium Phosphorus Magnesium Total Bilirubin AST ALT Alkaline Phosphatase Total Protein Albumin Triglycerides Arterial Blood Glucose Arterial Blood Ionized Calcium Digoxin Crossmatch 12/27/20 12/27/20 12/27/20 06:40 06:40 11:22 WBC 4.4 L RBC 2.49 L Hgb 7.4 L Hct 22.4 L MCV MCHC RDW 17.1 H Plt Count 111 L Lymph % (Auto) 6.7 L [place] % (Auto) 12.6 H Lymph # (Auto) 0.3 L [place] # (Auto) Seg Neutrophils % 77.6 H Seg Neuts % (Manual) Lymphocytes % (Manual) Monocytes % (Manual) Seg Neutrophils # Seg Neutrophils # Man Lymphocytes # (Manual) Monocytes # (Manual) PT INR ABG pH POC ABG pCO2 POC ABG pO2 ABG pO2 ABG HCO3 ABG O2 Saturation ABG Base Excess ABG Hemoglobin ABG Oxyhemoglobin ABG Sodium ABG Potassium ABG Chloride ABG Glucose Oxyhemoglobin Sodium Potassium Chloride Carbon Dioxide BUN 64 H Creatinine 9.8 H Glucose 147 H POC Glucose 134 H Lactic Acid Calcium 8.3 L Phosphorus 5.00 H Magnesium Total Bilirubin 3.70 H AST 72 H ALT Alkaline Phosphatase 142 H Total Protein 5.1 L D Albumin 2.9 L Triglycerides Arterial Blood Glucose Arterial Blood Ionized Calcium Digoxin Crossmatch 12/27/20 12/27/20 12/28/20 17:29 23:31 03:09 WBC RBC Hgb Hct MCV MCHC RDW Plt Count Lymph % (Auto) [place] % (Auto) Lymph # (Auto) [place] # (Auto) Seg Neutrophils % Seg Neuts % (Manual) Lymphocytes % (Manual) Monocytes % (Manual) Seg Neutrophils # Seg Neutrophils # Man Lymphocytes # (Manual) Monocytes # (Manual) PT INR ABG pH 7.474 H POC ABG pCO2 POC ABG pO2 ABG pO2 ABG HCO3 ABG O2 Saturation ABG Base Excess ABG Hemoglobin 7.8 L ABG Oxyhemoglobin ABG Sodium ABG Potassium ABG Chloride ABG Glucose Oxyhemoglobin Sodium Potassium Chloride Carbon Dioxide BUN Creatinine Glucose POC Glucose 121 H 131 H Lactic Acid Calcium Phosphorus Magnesium Total Bilirubin AST ALT Alkaline Phosphatase Total Protein Albumin Triglycerides Arterial Blood Glucose Arterial Blood Ionized Calcium Digoxin Crossmatch 12/28/20 12/28/20 12/28/20 05:37 05:40 05:40 WBC 4.3 L RBC 2.40 L Hgb 7.2 L Hct 21.5 L MCV MCHC RDW 17.4 H Plt Count 112 L Lymph % (Auto) 6.5 L [place] % (Auto) 16.7 H Lymph # (Auto) 0.3 L [place] # (Auto) Seg Neutrophils % 71.1 H Seg Neuts % (Manual) Lymphocytes % (Manual) Monocytes % (Manual) Seg Neutrophils # Seg Neutrophils # Man Lymphocytes # (Manual) Monocytes # (Manual) PT INR ABG pH POC ABG pCO2 POC ABG pO2 ABG pO2 ABG HCO3 ABG O2 Saturation ABG Base Excess ABG Hemoglobin ABG Oxyhemoglobin ABG Sodium ABG Potassium ABG Chloride ABG Glucose Oxyhemoglobin Sodium Potassium Chloride Carbon Dioxide BUN 85 H Creatinine 11.5 H Glucose 132 H POC Glucose 121 H Lactic Acid Calcium 8.2 L Phosphorus Magnesium 2.40 H Total Bilirubin 3.80 H AST 70 H ALT Alkaline Phosphatase 176 H Total Protein 5.0 L Albumin 2.9 L Triglycerides Arterial Blood Glucose Arterial Blood Ionized Calcium Digoxin Crossmatch 12/28/20 12/28/20 12/28/20 11:34 15:00 17:35 WBC RBC Hgb Hct MCV MCHC RDW Plt Count Lymph % (Auto) [place] % (Auto) Lymph # (Auto) [place] # (Auto) Seg Neutrophils % Seg Neuts % (Manual) Lymphocytes % (Manual) Monocytes % (Manual) Seg Neutrophils # Seg Neutrophils # Man Lymphocytes # (Manual) Monocytes # (Manual) PT INR ABG pH 7.461 H POC ABG pCO2 POC ABG pO2 72.2 L ABG pO2 ABG HCO3 ABG O2 Saturation ABG Base Excess ABG Hemoglobin 8.2 L ABG Oxyhemoglobin 93.6 L ABG Sodium 134.1 L ABG Potassium 3.2 L ABG Chloride ABG Glucose 135 H Oxyhemoglobin Sodium Potassium Chloride Carbon Dioxide BUN Creatinine Glucose POC Glucose 137 H 144 H Lactic Acid Calcium Phosphorus Magnesium Total Bilirubin AST ALT Alkaline Phosphatase Total Protein Albumin Triglycerides Arterial Blood Glucose 135 H Arterial Blood Ionized Calcium 4.4 L Digoxin Crossmatch 12/28/20 12/28/20 12/29/20 19:44 Unknown 00:21 WBC RBC Hgb Hct MCV MCHC RDW Plt Count Lymph % (Auto) [place] % (Auto) Lymph # (Auto) [place] # (Auto) Seg Neutrophils % Seg Neuts % (Manual) Lymphocytes % (Manual) Monocytes % (Manual) Seg Neutrophils # Seg Neutrophils # Man Lymphocytes # (Manual) Monocytes # (Manual) PT INR ABG pH 7.474 H POC ABG pCO2 POC ABG pO2 ABG pO2 ABG HCO3 ABG O2 Saturation ABG Base Excess ABG Hemoglobin 7.8 L ABG Oxyhemoglobin ABG Sodium 133.2 L ABG Potassium ABG Chloride ABG Glucose 139 H Oxyhemoglobin Sodium 135 L Potassium Chloride 96.6 L Carbon Dioxide BUN 47 H Creatinine 7.4 H Glucose 130 H POC Glucose 142 H Lactic Acid Calcium 8.3 L Phosphorus Magnesium Total Bilirubin AST ALT Alkaline Phosphatase Total Protein Albumin Triglycerides Arterial Blood Glucose 139 H Arterial Blood Ionized Calcium 4.3 L Digoxin Crossmatch 12/29/20 12/29/20 12/29/20 05:16 05:16 05:26 WBC RBC 2.53 L Hgb 7.7 L Hct 22.8 L MCV MCHC RDW 17.0 H Plt Count 130 L Lymph % (Auto) [place] % (Auto) Lymph # (Auto) [place] # (Auto) Seg Neutrophils % Seg Neuts % (Manual) 79.0 H Lymphocytes % (Manual) 9.0 L Monocytes % (Manual) Seg Neutrophils # Seg Neutrophils # Man Lymphocytes # (Manual) 0.6 L Monocytes # (Manual) PT INR ABG pH POC ABG pCO2 POC ABG pO2 ABG pO2 ABG HCO3 ABG O2 Saturation ABG Base Excess ABG Hemoglobin ABG Oxyhemoglobin ABG Sodium ABG Potassium ABG Chloride ABG Glucose Oxyhemoglobin Sodium Potassium 3.4 L Chloride 96.6 L Carbon Dioxide BUN 59 H Creatinine 8.3 H Glucose 127 H POC Glucose 141 H Lactic Acid Calcium 8.2 L Phosphorus Magnesium Total Bilirubin 3.00 H AST 88 H ALT Alkaline Phosphatase 188 H Total Protein 5.1 L Albumin 2.8 L Triglycerides Arterial Blood Glucose Arterial Blood Ionized Calcium Digoxin Crossmatch 12/29/20 12/29/20 12/29/20 11:33 17:29 23:22 WBC RBC Hgb Hct MCV MCHC RDW Plt Count Lymph % (Auto) [place] % (Auto) Lymph # (Auto) [place] # (Auto) Seg Neutrophils % Seg Neuts % (Manual) Lymphocytes % (Manual) Monocytes % (Manual) Seg Neutrophils # Seg Neutrophils # Man Lymphocytes # (Manual) Monocytes # (Manual) PT INR ABG pH POC ABG pCO2 POC ABG pO2 ABG pO2 ABG HCO3 ABG O2 Saturation ABG Base Excess ABG Hemoglobin ABG Oxyhemoglobin ABG Sodium ABG Potassium ABG Chloride ABG Glucose Oxyhemoglobin Sodium Potassium Chloride Carbon Dioxide BUN Creatinine Glucose POC Glucose 144 H 130 H 117 H Lactic Acid Calcium Phosphorus Magnesium Total Bilirubin AST ALT Alkaline Phosphatase Total Protein Albumin Triglycerides Arterial Blood Glucose Arterial Blood Ionized Calcium Digoxin Crossmatch 12/30/20 12/30/20 12/30/20 05:23 08:15 09:00 WBC RBC Hgb Hct MCV MCHC RDW Plt Count Lymph % (Auto) [place] % (Auto) Lymph # (Auto) [place] # (Auto) Seg Neutrophils % Seg Neuts % (Manual) Lymphocytes % (Manual) Monocytes % (Manual) Seg Neutrophils # Seg Neutrophils # Man Lymphocytes # (Manual) Monocytes # (Manual) PT INR ABG pH POC ABG pCO2 POC ABG pO2 ABG pO2 ABG HCO3 ABG O2 Saturation ABG Base Excess ABG Hemoglobin ABG Oxyhemoglobin ABG Sodium ABG Potassium ABG Chloride ABG Glucose Oxyhemoglobin Sodium 135 L Potassium Chloride 95.9 L Carbon Dioxide BUN 85 H Creatinine 10.6 H Glucose 128 H POC Glucose 135 H 127 H Lactic Acid Calcium 8.3 L Phosphorus Magnesium Total Bilirubin 2.40 H AST 85 H ALT Alkaline Phosphatase 216 H Total Protein 5.3 L Albumin 2.6 L Triglycerides 155 H Arterial Blood Glucose Arterial Blood Ionized Calcium Digoxin Crossmatch 12/30/20 12/30/20 12/30/20 09:00 11:53 15:49 WBC RBC 2.61 L Hgb 7.8 L Hct 23.7 L MCV MCHC RDW 17.3 H Plt Count Lymph % (Auto) [place] % (Auto) Lymph # (Auto) [place] # (Auto) Seg Neutrophils % Seg Neuts % (Manual) Lymphocytes % (Manual) Monocytes % (Manual) Seg Neutrophils # Seg Neutrophils # Man Lymphocytes # (Manual) Monocytes # (Manual) PT INR ABG pH POC ABG pCO2 POC ABG pO2 ABG pO2 ABG HCO3 ABG O2 Saturation ABG Base Excess ABG Hemoglobin ABG Oxyhemoglobin ABG Sodium ABG Potassium ABG Chloride ABG Glucose Oxyhemoglobin Sodium Potassium Chloride Carbon Dioxide BUN Creatinine Glucose POC Glucose 155 H 146 H Lactic Acid Calcium Phosphorus Magnesium Total Bilirubin AST ALT Alkaline Phosphatase Total Protein Albumin Triglycerides Arterial Blood Glucose Arterial Blood Ionized Calcium Digoxin Crossmatch 12/30/20 12/30/20 12/31/20 17:53 23:45 03:56 WBC RBC Hgb Hct MCV MCHC RDW Plt Count Lymph % (Auto) [place] % (Auto) Lymph # (Auto) [place] # (Auto) Seg Neutrophils % Seg Neuts % (Manual) Lymphocytes % (Manual) Monocytes % (Manual) Seg Neutrophils # Seg Neutrophils # Man Lymphocytes # (Manual) Monocytes # (Manual) PT INR ABG pH POC ABG pCO2 POC ABG pO2 49.4 L ABG pO2 ABG HCO3 ABG O2 Saturation ABG Base Excess ABG Hemoglobin 10.3 L ABG Oxyhemoglobin 84.2 L ABG Sodium 133.1 L ABG Potassium ABG Chloride ABG Glucose 173 H Oxyhemoglobin Sodium Potassium Chloride Carbon Dioxide BUN Creatinine Glucose POC Glucose 139 H 173 H Lactic Acid Calcium Phosphorus Magnesium Total Bilirubin AST ALT Alkaline Phosphatase Total Protein Albumin Triglycerides Arterial Blood Glucose 173 H Arterial Blood Ionized Calcium Digoxin Crossmatch 12/31/20 12/31/20 12/31/20 05:07 06:51 06:51 WBC 20.3 H RBC 3.32 L Hgb 9.8 L Hct 30.3 L D MCV MCHC RDW 17.3 H Plt Count Lymph % (Auto) [place] % (Auto) Lymph # (Auto) [place] # (Auto) Seg Neutrophils % Seg Neuts % (Manual) 87.0 H Lymphocytes % (Manual) 10.0 L Monocytes % (Manual) Seg Neutrophils # Seg Neutrophils # Man 17.7 H Lymphocytes # (Manual) Monocytes # (Manual) PT INR ABG pH POC ABG pCO2 POC ABG pO2 ABG pO2 ABG HCO3 ABG O2 Saturation ABG Base Excess ABG Hemoglobin ABG Oxyhemoglobin ABG Sodium ABG Potassium ABG Chloride ABG Glucose Oxyhemoglobin Sodium Potassium 5.2 H D Chloride Carbon Dioxide BUN 62 H Creatinine 8.4 H Glucose 116 H POC Glucose 120 H Lactic Acid Calcium Phosphorus Magnesium 1.60 L Total Bilirubin AST ALT Alkaline Phosphatase Total Protein Albumin Triglycerides Arterial Blood Glucose Arterial Blood Ionized Calcium Digoxin Crossmatch 12/31/20 12/31/20 12/31/20 09:38 12:19 12:22 WBC RBC Hgb Hct MCV MCHC RDW Plt Count Lymph % (Auto) [place] % (Auto) Lymph # (Auto) [place] # (Auto) Seg Neutrophils % Seg Neuts % (Manual) Lymphocytes % (Manual) Monocytes % (Manual) Seg Neutrophils # Seg Neutrophils # Man Lymphocytes # (Manual) Monocytes # (Manual) PT INR ABG pH POC ABG pCO2 POC ABG pO2 ABG pO2 354.0 H ABG HCO3 ABG O2 Saturation 99.6 H ABG Base Excess ABG Hemoglobin 9.1 L ABG Oxyhemoglobin ABG Sodium ABG Potassium ABG Chloride ABG Glucose Oxyhemoglobin Sodium Potassium 5.2 H Chloride Carbon Dioxide BUN Creatinine Glucose POC Glucose 132 H Lactic Acid Calcium Phosphorus Magnesium Total Bilirubin AST ALT Alkaline Phosphatase Total Protein Albumin Triglycerides Arterial Blood Glucose Arterial Blood Ionized Calcium Digoxin Crossmatch 12/31/20 01/01/21 01/01/21 23:23 03:03 05:04 WBC RBC Hgb Hct MCV MCHC RDW Plt Count Lymph % (Auto) [place] % (Auto) Lymph # (Auto) [place] # (Auto) Seg Neutrophils % Seg Neuts % (Manual) Lymphocytes % (Manual) Monocytes % (Manual) Seg Neutrophils # Seg Neutrophils # Man Lymphocytes # (Manual) Monocytes # (Manual) PT INR ABG pH POC ABG pCO2 POC ABG pO2 79.6 L ABG pO2 ABG HCO3 ABG O2 Saturation ABG Base Excess ABG Hemoglobin 9.2 L ABG Oxyhemoglobin ABG Sodium 131.6 L ABG Potassium 5.8 H ABG Chloride ABG Glucose 177 H Oxyhemoglobin Sodium Potassium Chloride Carbon Dioxide BUN Creatinine Glucose POC Glucose 174 H 167 H Lactic Acid Calcium Phosphorus Magnesium Total Bilirubin AST ALT Alkaline Phosphatase Total Protein Albumin Triglycerides Arterial Blood Glucose 177 H Arterial Blood Ionized Calcium Digoxin Crossmatch 01/01/21 01/01/21 01/01/21 07:31 07:31 11:31 WBC 26.1 H RBC 2.95 L Hgb 8.6 L Hct 27.1 L MCV MCHC RDW 18.2 H Plt Count Lymph % (Auto) [place] % (Auto) Lymph # (Auto) [place] # (Auto) Seg Neutrophils % Seg Neuts % (Manual) 96.0 H Lymphocytes % (Manual) 4.0 L Monocytes % (Manual) Seg Neutrophils # Seg Neutrophils # Man 25.1 H Lymphocytes # (Manual) 1.0 L Monocytes # (Manual) PT INR ABG pH POC ABG pCO2 POC ABG pO2 ABG pO2 ABG HCO3 ABG O2 Saturation ABG Base Excess ABG Hemoglobin ABG Oxyhemoglobin ABG Sodium ABG Potassium ABG Chloride ABG Glucose Oxyhemoglobin Sodium Potassium 6.0 H Chloride Carbon Dioxide 21 L BUN 89 H Creatinine 10.5 H Glucose 179 H POC Glucose Lactic Acid Calcium Phosphorus Magnesium Total Bilirubin AST ALT Alkaline Phosphatase Total Protein Albumin Triglycerides Arterial Blood Glucose Arterial Blood Ionized Calcium Digoxin Crossmatch See Detail 01/01/21 01/01/21 01/01/21 11:51 12:45 16:52 WBC RBC Hgb Hct MCV MCHC RDW Plt Count Lymph % (Auto) [place] % (Auto) Lymph # (Auto) [place] # (Auto) Seg Neutrophils % Seg Neuts % (Manual) Lymphocytes % (Manual) Monocytes % (Manual) Seg Neutrophils # Seg Neutrophils # Man Lymphocytes # (Manual) Monocytes # (Manual) PT 16.9 H INR 1.39 H ABG pH POC ABG pCO2 POC ABG pO2 ABG pO2 ABG HCO3 ABG O2 Saturation ABG Base Excess ABG Hemoglobin ABG Oxyhemoglobin ABG Sodium ABG Potassium ABG Chloride ABG Glucose Oxyhemoglobin Sodium Potassium Chloride Carbon Dioxide BUN Creatinine Glucose POC Glucose 157 H 177 H Lactic Acid Calcium Phosphorus Magnesium Total Bilirubin AST ALT Alkaline Phosphatase Total Protein Albumin Triglycerides Arterial Blood Glucose Arterial Blood Ionized Calcium Digoxin Crossmatch 01/01/21 01/01/21 01/01/21 17:58 17:58 20:12 WBC 26.9 H RBC 3.14 L Hgb 9.3 L Hct 29.6 L MCV MCHC RDW 17.5 H Plt Count Lymph % (Auto) [place] % (Auto) Lymph # (Auto) [place] # (Auto) Seg Neutrophils % Seg Neuts % (Manual) 84.0 H Lymphocytes % (Manual) 4.0 L Monocytes % (Manual) 12.0 H Seg Neutrophils # Seg Neutrophils # Man 22.6 H Lymphocytes # (Manual) 1.1 L Monocytes # (Manual) 3.2 H PT INR ABG pH POC ABG pCO2 POC ABG pO2 ABG pO2 ABG HCO3 ABG O2 Saturation ABG Base Excess ABG Hemoglobin ABG Oxyhemoglobin ABG Sodium ABG Potassium ABG Chloride ABG Glucose Oxyhemoglobin Sodium 136 L Potassium 6.2 H* Chloride Carbon Dioxide 21 L BUN 92 H Creatinine 10.8 H Glucose 171 H POC Glucose 288 H Lactic Acid Calcium Phosphorus Magnesium Total Bilirubin 2.10 H AST 223 H ALT 100 H Alkaline Phosphatase 206 H Total Protein 4.8 L Albumin 1.9 L Triglycerides Arterial Blood Glucose Arterial Blood Ionized Calcium Digoxin Crossmatch 01/02/21 01/02/21 01/02/21 00:12 00:45 03:05 WBC RBC Hgb Hct MCV MCHC RDW Plt Count Lymph % (Auto) [place] % (Auto) Lymph # (Auto) [place] # (Auto) Seg Neutrophils % Seg Neuts % (Manual) Lymphocytes % (Manual) Monocytes % (Manual) Seg Neutrophils # Seg Neutrophils # Man Lymphocytes # (Manual) Monocytes # (Manual) PT INR ABG pH POC ABG pCO2 POC ABG pO2 81.8 L ABG pO2 ABG HCO3 ABG O2 Saturation ABG Base Excess ABG Hemoglobin 8.0 L ABG Oxyhemoglobin ABG Sodium 129.8 L ABG Potassium 5.4 H ABG Chloride ABG Glucose 257 H Oxyhemoglobin Sodium 136 L Potassium 5.8 H Chloride 96.6 L Carbon Dioxide BUN 95 H Creatinine 11.2 H Glucose 238 H POC Glucose 223 H Lactic Acid Calcium Phosphorus Magnesium Total Bilirubin AST ALT Alkaline Phosphatase Total Protein Albumin Triglycerides Arterial Blood Glucose 257 H Arterial Blood Ionized Calcium 4.0 L Digoxin Crossmatch 01/02/21 01/02/21 01/02/21 06:25 08:00 08:00 WBC 17.5 H RBC 2.31 L Hgb 6.7 L Hct 22.1 L D MCV 96 H MCHC 30 L RDW 18.4 H Plt Count Lymph % (Auto) [place] % (Auto) Lymph # (Auto) [place] # (Auto) Seg Neutrophils % Seg Neuts % (Manual) Lymphocytes % (Manual) Monocytes % (Manual) Seg Neutrophils # Seg Neutrophils # Man Lymphocytes # (Manual) Monocytes # (Manual) PT INR ABG pH POC ABG pCO2 POC ABG pO2 ABG pO2 ABG HCO3 ABG O2 Saturation ABG Base Excess ABG Hemoglobin ABG Oxyhemoglobin ABG Sodium ABG Potassium ABG Chloride ABG Glucose Oxyhemoglobin Sodium 134 L Potassium 5.3 H Chloride 92.9 L Carbon Dioxide BUN 101 H Creatinine 10.9 H Glucose 560 H* POC Glucose 239 H Lactic Acid Calcium 7.6 L Phosphorus 6.50 H Magnesium Total Bilirubin AST ALT Alkaline Phosphatase Total Protein Albumin Triglycerides Arterial Blood Glucose Arterial Blood Ionized Calcium Digoxin Crossmatch 01/02/21 01/02/21 01/02/21 11:26 15:00 17:57 WBC RBC Hgb Hct MCV MCHC RDW Plt Count Lymph % (Auto) [place] % (Auto) Lymph # (Auto) [place] # (Auto) Seg Neutrophils % Seg Neuts % (Manual) Lymphocytes % (Manual) Monocytes % (Manual) Seg Neutrophils # Seg Neutrophils # Man Lymphocytes # (Manual) Monocytes # (Manual) PT INR ABG pH POC ABG pCO2 POC ABG pO2 ABG pO2 ABG HCO3 ABG O2 Saturation ABG Base Excess ABG Hemoglobin ABG Oxyhemoglobin ABG Sodium ABG Potassium ABG Chloride ABG Glucose Oxyhemoglobin Sodium Potassium Chloride Carbon Dioxide BUN Creatinine Glucose 241 H POC Glucose 205 H 272 H Lactic Acid Calcium Phosphorus Magnesium Total Bilirubin AST ALT Alkaline Phosphatase Total Protein Albumin Triglycerides Arterial Blood Glucose Arterial Blood Ionized Calcium Digoxin Crossmatch 01/02/21 01/02/21 01/03/21 23:25 23:43 03:45 WBC RBC Hgb Hct MCV MCHC RDW Plt Count Lymph % (Auto) [place] % (Auto) Lymph # (Auto) [place] # (Auto) Seg Neutrophils % Seg Neuts % (Manual) Lymphocytes % (Manual) Monocytes % (Manual) Seg Neutrophils # Seg Neutrophils # Man Lymphocytes # (Manual) Monocytes # (Manual) PT INR ABG pH POC ABG pCO2 48.3 H POC ABG pO2 134.4 H 79.7 L ABG pO2 ABG HCO3 ABG O2 Saturation ABG Base Excess ABG Hemoglobin 7.7 L 8.6 L ABG Oxyhemoglobin ABG Sodium 131.8 L 130.4 L ABG Potassium ABG Chloride 97.0 L ABG Glucose 218 H 238 H Oxyhemoglobin Sodium Potassium Chloride Carbon Dioxide BUN Creatinine Glucose POC Glucose 218 H Lactic Acid Calcium Phosphorus Magnesium Total Bilirubin AST ALT Alkaline Phosphatase Total Protein Albumin Triglycerides Arterial Blood Glucose 218 H 238 H Arterial Blood Ionized Calcium 4.1 L 4.0 L Digoxin Crossmatch 01/03/21 01/03/21 01/03/21 04:37 04:37 05:39 WBC 15.2 H RBC 2.38 L Hgb 7.3 L Hct 21.6 L MCV MCHC RDW 16.6 H Plt Count Lymph % (Auto) [place] % (Auto) Lymph # (Auto) [place] # (Auto) Seg Neutrophils % Seg Neuts % (Manual) Lymphocytes % (Manual) Monocytes % (Manual) Seg Neutrophils # Seg Neutrophils # Man Lymphocytes # (Manual) Monocytes # (Manual) PT INR ABG pH POC ABG pCO2 POC ABG pO2 ABG pO2 ABG HCO3 ABG O2 Saturation ABG Base Excess ABG Hemoglobin ABG Oxyhemoglobin ABG Sodium ABG Potassium ABG Chloride ABG Glucose Oxyhemoglobin Sodium 136 L Potassium Chloride 94.5 L Carbon Dioxide BUN 69 H Creatinine 8.0 H Glucose 219 H POC Glucose 222 H Lactic Acid Calcium 7.8 L Phosphorus 4.80 H D Magnesium Total Bilirubin AST ALT Alkaline Phosphatase Total Protein Albumin Triglycerides Arterial Blood Glucose Arterial Blood Ionized Calcium Digoxin Crossmatch 01/03/21 01/03/21 01/03/21 11:29 18:49 23:37 WBC RBC Hgb Hct MCV MCHC RDW Plt Count Lymph % (Auto) [place] % (Auto) Lymph # (Auto) [place] # (Auto) Seg Neutrophils % Seg Neuts % (Manual) Lymphocytes % (Manual) Monocytes % (Manual) Seg Neutrophils # Seg Neutrophils # Man Lymphocytes # (Manual) Monocytes # (Manual) PT INR ABG pH POC ABG pCO2 POC ABG pO2 ABG pO2 ABG HCO3 ABG O2 Saturation ABG Base Excess ABG Hemoglobin ABG Oxyhemoglobin ABG Sodium ABG Potassium ABG Chloride ABG Glucose Oxyhemoglobin Sodium Potassium Chloride Carbon Dioxide BUN Creatinine Glucose POC Glucose 232 H 129 H 140 H Lactic Acid Calcium Phosphorus Magnesium Total Bilirubin AST ALT Alkaline Phosphatase Total Protein Albumin Triglycerides Arterial Blood Glucose Arterial Blood Ionized Calcium Digoxin Crossmatch 01/04/21 01/04/21 01/04/21 03:22 04:38 04:38 WBC 11.1 H RBC 2.89 L Hgb 8.9 L Hct 26.2 L MCV MCHC RDW 16.1 H Plt Count Lymph % (Auto) [place] % (Auto) Lymph # (Auto) [place] # (Auto) Seg Neutrophils % Seg Neuts % (Manual) Lymphocytes % (Manual) Monocytes % (Manual) Seg Neutrophils # Seg Neutrophils # Man Lymphocytes # (Manual) Monocytes # (Manual) PT INR ABG pH POC ABG pCO2 POC ABG pO2 82.3 L ABG pO2 ABG HCO3 ABG O2 Saturation ABG Base Excess ABG Hemoglobin 8.9 L ABG Oxyhemoglobin ABG Sodium 130.5 L ABG Potassium ABG Chloride ABG Glucose 124 H Oxyhemoglobin Sodium Potassium Chloride 95.5 L Carbon Dioxide BUN 87 H Creatinine 9.7 H Glucose 118 H POC Glucose Lactic Acid Calcium 7.7 L Phosphorus Magnesium Total Bilirubin AST ALT Alkaline Phosphatase Total Protein Albumin Triglycerides Arterial Blood Glucose 124 H Arterial Blood Ionized Calcium 3.5 L Digoxin Crossmatch 01/04/21 01/04/21 01/04/21 05:39 12:04 18:04 WBC RBC Hgb Hct MCV MCHC RDW Plt Count Lymph % (Auto) [place] % (Auto) Lymph # (Auto) [place] # (Auto) Seg Neutrophils % Seg Neuts % (Manual) Lymphocytes % (Manual) Monocytes % (Manual) Seg Neutrophils # Seg Neutrophils # Man Lymphocytes # (Manual) Monocytes # (Manual) PT INR ABG pH POC ABG pCO2 POC ABG pO2 ABG pO2 ABG HCO3 ABG O2 Saturation ABG Base Excess ABG Hemoglobin ABG Oxyhemoglobin ABG Sodium ABG Potassium ABG Chloride ABG Glucose Oxyhemoglobin Sodium Potassium Chloride Carbon Dioxide BUN Creatinine Glucose POC Glucose 134 H 125 H 131 H Lactic Acid Calcium Phosphorus Magnesium Total Bilirubin AST ALT Alkaline Phosphatase Total Protein Albumin Triglycerides Arterial Blood Glucose Arterial Blood Ionized Calcium Digoxin Crossmatch 01/04/21 01/05/21 01/05/21 23:41 03:23 04:49 WBC RBC Hgb Hct MCV MCHC RDW Plt Count Lymph % (Auto) [place] % (Auto) Lymph # (Auto) [place] # (Auto) Seg Neutrophils % Seg Neuts % (Manual) Lymphocytes % (Manual) Monocytes % (Manual) Seg Neutrophils # Seg Neutrophils # Man Lymphocytes # (Manual) Monocytes # (Manual) PT INR ABG pH POC ABG pCO2 POC ABG pO2 62.8 L ABG pO2 ABG HCO3 ABG O2 Saturation ABG Base Excess ABG Hemoglobin 9.5 L ABG Oxyhemoglobin 92.0 L ABG Sodium 130.1 L ABG Potassium ABG Chloride ABG Glucose 148 H Oxyhemoglobin Sodium Potassium Chloride 96.9 L Carbon Dioxide BUN 57 H Creatinine 6.7 H Glucose 135 H POC Glucose 132 H Lactic Acid Calcium 8.0 L Phosphorus Magnesium Total Bilirubin AST ALT Alkaline Phosphatase Total Protein Albumin Triglycerides Arterial Blood Glucose 148 H Arterial Blood Ionized Calcium 4.1 L Digoxin Crossmatch 01/05/21 01/05/21 01/05/21 05:04 11:48 12:39 WBC RBC 3.03 L Hgb 9.3 L Hct 27.6 L MCV MCHC RDW 16.5 H Plt Count Lymph % (Auto) [place] % (Auto) Lymph # (Auto) [place] # (Auto) Seg Neutrophils % Seg Neuts % (Manual) Lymphocytes % (Manual) Monocytes % (Manual) Seg Neutrophils # Seg Neutrophils # Man Lymphocytes # (Manual) Monocytes # (Manual) PT INR ABG pH POC ABG pCO2 POC ABG pO2 ABG pO2 ABG HCO3 ABG O2 Saturation ABG Base Excess ABG Hemoglobin ABG Oxyhemoglobin ABG Sodium ABG Potassium ABG Chloride ABG Glucose Oxyhemoglobin Sodium Potassium Chloride Carbon Dioxide BUN Creatinine Glucose POC Glucose 147 H 162 H Lactic Acid Calcium Phosphorus Magnesium Total Bilirubin AST ALT Alkaline Phosphatase Total Protein Albumin Triglycerides Arterial Blood Glucose Arterial Blood Ionized Calcium Digoxin Crossmatch 01/05/21 01/05/21 01/06/21 17:50 23:32 04:15 WBC RBC Hgb Hct MCV MCHC RDW Plt Count Lymph % (Auto) [place] % (Auto) Lymph # (Auto) [place] # (Auto) Seg Neutrophils % Seg Neuts % (Manual) Lymphocytes % (Manual) Monocytes % (Manual) Seg Neutrophils # Seg Neutrophils # Man Lymphocytes # (Manual) Monocytes # (Manual) PT INR ABG pH POC ABG pCO2 POC ABG pO2 ABG pO2 191.0 H ABG HCO3 ABG O2 Saturation 99.2 H ABG Base Excess ABG Hemoglobin 9.0 L ABG Oxyhemoglobin ABG Sodium ABG Potassium ABG Chloride ABG Glucose Oxyhemoglobin Sodium Potassium Chloride Carbon Dioxide BUN Creatinine Glucose POC Glucose 155 H 115 H Lactic Acid Calcium Phosphorus Magnesium Total Bilirubin AST ALT Alkaline Phosphatase Total Protein Albumin Triglycerides Arterial Blood Glucose Arterial Blood Ionized Calcium Digoxin Crossmatch 01/06/21 01/06/21 01/06/21 04:45 05:56 07:03 WBC RBC 2.95 L Hgb 9.1 L Hct 26.8 L MCV MCHC RDW 16.8 H Plt Count Lymph % (Auto) [place] % (Auto) Lymph # (Auto) [place] # (Auto) Seg Neutrophils % Seg Neuts % (Manual) Lymphocytes % (Manual) Monocytes % (Manual) Seg Neutrophils # Seg Neutrophils # Man Lymphocytes # (Manual) Monocytes # (Manual) PT INR ABG pH POC ABG pCO2 POC ABG pO2 ABG pO2 ABG HCO3 ABG O2 Saturation ABG Base Excess ABG Hemoglobin ABG Oxyhemoglobin ABG Sodium ABG Potassium ABG Chloride ABG Glucose Oxyhemoglobin Sodium 135 L Potassium Chloride 95.9 L Carbon Dioxide BUN 82 H Creatinine 8.7 H Glucose 127 H POC Glucose 136 H Lactic Acid Calcium 8.3 L Phosphorus Magnesium Total Bilirubin AST ALT Alkaline Phosphatase Total Protein Albumin Triglycerides Arterial Blood Glucose Arterial Blood Ionized Calcium Digoxin Crossmatch 01/06/21 01/06/21 01/06/21 07:10 11:04 13:38 WBC RBC Hgb Hct MCV MCHC RDW Plt Count Lymph % (Auto) [place] % (Auto) Lymph # (Auto) [place] # (Auto) Seg Neutrophils % Seg Neuts % (Manual) Lymphocytes % (Manual) Monocytes % (Manual) Seg Neutrophils # Seg Neutrophils # Man Lymphocytes # (Manual) Monocytes # (Manual) PT INR ABG pH POC ABG pCO2 POC ABG pO2 ABG pO2 ABG HCO3 ABG O2 Saturation ABG Base Excess ABG Hemoglobin ABG Oxyhemoglobin ABG Sodium ABG Potassium ABG Chloride ABG Glucose Oxyhemoglobin Sodium Potassium Chloride Carbon Dioxide BUN Creatinine Glucose POC Glucose 178 H 155 H Lactic Acid Calcium Phosphorus Magnesium Total Bilirubin AST ALT Alkaline Phosphatase Total Protein Albumin Triglycerides Arterial Blood Glucose Arterial Blood Ionized Calcium Digoxin Crossmatch See Detail 01/06/21 01/06/21 01/07/21 17:35 22:21 03:07 WBC RBC Hgb Hct MCV MCHC RDW Plt Count Lymph % (Auto) [place] % (Auto) Lymph # (Auto) [place] # (Auto) Seg Neutrophils % Seg Neuts % (Manual) Lymphocytes % (Manual) Monocytes % (Manual) Seg Neutrophils # Seg Neutrophils # Man Lymphocytes # (Manual) Monocytes # (Manual) PT INR ABG pH POC ABG pCO2 POC ABG pO2 ABG pO2 ABG HCO3 ABG O2 Saturation ABG Base Excess ABG Hemoglobin 11.9 L ABG Oxyhemoglobin ABG Sodium 135.6 L ABG Potassium ABG Chloride ABG Glucose 181 H Oxyhemoglobin Sodium Potassium Chloride Carbon Dioxide BUN Creatinine Glucose POC Glucose 138 H 202 H Lactic Acid Calcium Phosphorus Magnesium Total Bilirubin AST ALT Alkaline Phosphatase Total Protein Albumin Triglycerides Arterial Blood Glucose 181 H Arterial Blood Ionized Calcium 4.3 L Digoxin Crossmatch 01/07/21 01/07/21 01/07/21 04:50 05:21 08:37 WBC 12.4 H RBC Hgb 11.1 L Hct 33.3 L D MCV MCHC RDW 17.0 H Plt Count Lymph % (Auto) 3.2 L [place] % (Auto) 9.4 H Lymph # (Auto) 0.4 L [place] # (Auto) 1.2 H Seg Neutrophils % 86.6 H Seg Neuts % (Manual) Lymphocytes % (Manual) Monocytes % (Manual) Seg Neutrophils # 10.7 H Seg Neutrophils # Man Lymphocytes # (Manual) Monocytes # (Manual) PT INR ABG pH POC ABG pCO2 POC ABG pO2 ABG pO2 ABG HCO3 ABG O2 Saturation ABG Base Excess ABG Hemoglobin ABG Oxyhemoglobin ABG Sodium ABG Potassium ABG Chloride ABG Glucose Oxyhemoglobin Sodium Potassium Chloride Carbon Dioxide BUN 60 H Creatinine 6.3 H Glucose 154 H POC Glucose 177 H Lactic Acid Calcium 8.3 L Phosphorus Magnesium Total Bilirubin AST ALT Alkaline Phosphatase Total Protein Albumin Triglycerides Arterial Blood Glucose Arterial Blood Ionized Calcium Digoxin Crossmatch 01/07/21 01/07/21 01/07/21 11:21 12:19 17:11 WBC RBC Hgb Hct MCV MCHC RDW Plt Count Lymph % (Auto) [place] % (Auto) Lymph # (Auto) [place] # (Auto) Seg Neutrophils % Seg Neuts % (Manual) Lymphocytes % (Manual) Monocytes % (Manual) Seg Neutrophils # Seg Neutrophils # Man Lymphocytes # (Manual) Monocytes # (Manual) PT INR ABG pH POC ABG pCO2 POC ABG pO2 ABG pO2 ABG HCO3 ABG O2 Saturation ABG Base Excess ABG Hemoglobin ABG Oxyhemoglobin ABG Sodium ABG Potassium ABG Chloride ABG Glucose Oxyhemoglobin Sodium Potassium Chloride Carbon Dioxide BUN Creatinine Glucose POC Glucose 144 H 137 H 119 H Lactic Acid Calcium Phosphorus Magnesium Total Bilirubin AST ALT Alkaline Phosphatase Total Protein Albumin Triglycerides Arterial Blood Glucose Arterial Blood Ionized Calcium Digoxin Crossmatch 01/07/21 01/07/21 01/08/21 17:14 23:39 04:34 WBC RBC Hgb Hct MCV MCHC RDW Plt Count Lymph % (Auto) [place] % (Auto) Lymph # (Auto) [place] # (Auto) Seg Neutrophils % Seg Neuts % (Manual) Lymphocytes % (Manual) Monocytes % (Manual) Seg Neutrophils # Seg Neutrophils # Man Lymphocytes # (Manual) Monocytes # (Manual) PT INR ABG pH 7.345 L POC ABG pCO2 POC ABG pO2 ABG pO2 67.4 L ABG HCO3 ABG O2 Saturation 94.3 L ABG Base Excess -3.9 L ABG Hemoglobin 8.9 L ABG Oxyhemoglobin ABG Sodium ABG Potassium ABG Chloride ABG Glucose Oxyhemoglobin 92.3 L Sodium Potassium Chloride Carbon Dioxide 20 L BUN 93 H Creatinine 8.8 H Glucose 120 H POC Glucose 129 H Lactic Acid Calcium Phosphorus Magnesium Total Bilirubin AST ALT Alkaline Phosphatase 133 H Total Protein 5.4 L Albumin 1.9 L Triglycerides Arterial Blood Glucose Arterial Blood Ionized Calcium Digoxin Crossmatch 01/08/21 01/08/21 01/08/21 05:26 11:38 17:19 WBC RBC Hgb Hct MCV MCHC RDW Plt Count Lymph % (Auto) [place] % (Auto) Lymph # (Auto) [place] # (Auto) Seg Neutrophils % Seg Neuts % (Manual) Lymphocytes % (Manual) Monocytes % (Manual) Seg Neutrophils # Seg Neutrophils # Man Lymphocytes # (Manual) Monocytes # (Manual) PT INR ABG pH POC ABG pCO2 POC ABG pO2 ABG pO2 ABG HCO3 ABG O2 Saturation ABG Base Excess ABG Hemoglobin ABG Oxyhemoglobin ABG Sodium ABG Potassium ABG Chloride ABG Glucose Oxyhemoglobin Sodium Potassium Chloride Carbon Dioxide BUN Creatinine Glucose POC Glucose 125 H 146 H 136 H Lactic Acid Calcium Phosphorus Magnesium Total Bilirubin AST ALT Alkaline Phosphatase Total Protein Albumin Triglycerides Arterial Blood Glucose Arterial Blood Ionized Calcium Digoxin Crossmatch 01/08/21 01/09/21 01/09/21 23:52 05:13 05:21 WBC RBC Hgb Hct MCV MCHC RDW Plt Count Lymph % (Auto) [place] % (Auto) Lymph # (Auto) [place] # (Auto) Seg Neutrophils % Seg Neuts % (Manual) Lymphocytes % (Manual) Monocytes % (Manual) Seg Neutrophils # Seg Neutrophils # Man Lymphocytes # (Manual) Monocytes # (Manual) PT INR ABG pH POC ABG pCO2 POC ABG pO2 ABG pO2 ABG HCO3 ABG O2 Saturation ABG Base Excess ABG Hemoglobin ABG Oxyhemoglobin ABG Sodium ABG Potassium ABG Chloride ABG Glucose Oxyhemoglobin Sodium Potassium Chloride Carbon Dioxide 16 L BUN 123 H Creatinine 10.8 H Glucose 145 H POC Glucose 143 H 144 H Lactic Acid Calcium Phosphorus 5.00 H D Magnesium 2.40 H Total Bilirubin AST ALT Alkaline Phosphatase Total Protein Albumin Triglycerides Arterial Blood Glucose Arterial Blood Ionized Calcium Digoxin Crossmatch 01/09/21 01/09/21 01/09/21 12:08 17:20 23:56 WBC RBC Hgb Hct MCV MCHC RDW Plt Count Lymph % (Auto) [place] % (Auto) Lymph # (Auto) [place] # (Auto) Seg Neutrophils % Seg Neuts % (Manual) Lymphocytes % (Manual) Monocytes % (Manual) Seg Neutrophils # Seg Neutrophils # Man Lymphocytes # (Manual) Monocytes # (Manual) PT INR ABG pH POC ABG pCO2 POC ABG pO2 ABG pO2 ABG HCO3 ABG O2 Saturation ABG Base Excess ABG Hemoglobin ABG Oxyhemoglobin ABG Sodium ABG Potassium ABG Chloride ABG Glucose Oxyhemoglobin Sodium Potassium Chloride Carbon Dioxide BUN Creatinine Glucose POC Glucose 153 H 160 H 158 H Lactic Acid Calcium Phosphorus Magnesium Total Bilirubin AST ALT Alkaline Phosphatase Total Protein Albumin Triglycerides Arterial Blood Glucose Arterial Blood Ionized Calcium Digoxin Crossmatch 01/10/21 01/10/21 01/10/21 04:52 05:44 07:41 WBC RBC Hgb Hct MCV MCHC RDW Plt Count Lymph % (Auto) [place] % (Auto) Lymph # (Auto) [place] # (Auto) Seg Neutrophils % Seg Neuts % (Manual) Lymphocytes % (Manual) Monocytes % (Manual) Seg Neutrophils # Seg Neutrophils # Man Lymphocytes # (Manual) Monocytes # (Manual) PT INR ABG pH POC ABG pCO2 POC ABG pO2 ABG pO2 ABG HCO3 ABG O2 Saturation ABG Base Excess ABG Hemoglobin ABG Oxyhemoglobin ABG Sodium ABG Potassium ABG Chloride ABG Glucose Oxyhemoglobin Sodium 135 L Potassium 3.5 L D Chloride 95.0 L Carbon Dioxide 21 L BUN 93 H Creatinine 8.3 H Glucose 127 H POC Glucose 135 H 157 H Lactic Acid Calcium Phosphorus Magnesium Total Bilirubin AST ALT Alkaline Phosphatase Total Protein Albumin Triglycerides Arterial Blood Glucose Arterial Blood Ionized Calcium Digoxin Crossmatch 01/10/21 01/10/21 01/10/21 09:26 12:03 17:44 WBC 18.2 H RBC 3.14 L Hgb 9.7 L Hct 28.2 L MCV MCHC RDW 16.5 H Plt Count Lymph % (Auto) [place] % (Auto) Lymph # (Auto) [place] # (Auto) Seg Neutrophils % Seg Neuts % (Manual) 95.0 H Lymphocytes % (Manual) 3.0 L Monocytes % (Manual) Seg Neutrophils # Seg Neutrophils # Man 17.3 H Lymphocytes # (Manual) 0.5 L Monocytes # (Manual) PT INR ABG pH POC ABG pCO2 POC ABG pO2 ABG pO2 ABG HCO3 ABG O2 Saturation ABG Base Excess ABG Hemoglobin ABG Oxyhemoglobin ABG Sodium ABG Potassium ABG Chloride ABG Glucose Oxyhemoglobin Sodium Potassium Chloride Carbon Dioxide BUN Creatinine Glucose POC Glucose 163 H 171 H Lactic Acid Calcium Phosphorus Magnesium Total Bilirubin AST ALT Alkaline Phosphatase Total Protein Albumin Triglycerides Arterial Blood Glucose Arterial Blood Ionized Calcium Digoxin Crossmatch 01/10/21 01/11/21 01/11/21 23:50 05:18 05:18 WBC RBC Hgb Hct MCV MCHC RDW Plt Count Lymph % (Auto) [place] % (Auto) Lymph # (Auto) [place] # (Auto) Seg Neutrophils % Seg Neuts % (Manual) Lymphocytes % (Manual) Monocytes % (Manual) Seg Neutrophils # Seg Neutrophils # Man Lymphocytes # (Manual) Monocytes # (Manual) PT INR ABG pH POC ABG pCO2 POC ABG pO2 ABG pO2 ABG HCO3 ABG O2 Saturation ABG Base Excess ABG Hemoglobin ABG Oxyhemoglobin ABG Sodium ABG Potassium ABG Chloride ABG Glucose Oxyhemoglobin Sodium 136 L Potassium Chloride 94.6 L Carbon Dioxide 19 L BUN 145 H Creatinine 10.6 H Glucose 152 H POC Glucose 151 H Lactic Acid Calcium Phosphorus 6.00 H D Magnesium Total Bilirubin AST ALT Alkaline Phosphatase Total Protein Albumin Triglycerides Arterial Blood Glucose Arterial Blood Ionized Calcium Digoxin 0.8 L Crossmatch 01/11/21 01/11/21 01/11/21 05:18 05:19 11:28 WBC 17.4 H RBC 3.34 L Hgb 10.2 L Hct 29.7 L MCV MCHC RDW 15.9 H Plt Count Lymph % (Auto) [place] % (Auto) Lymph # (Auto) [place] # (Auto) Seg Neutrophils % Seg Neuts % (Manual) Lymphocytes % (Manual) Monocytes % (Manual) Seg Neutrophils # Seg Neutrophils # Man Lymphocytes # (Manual) Monocytes # (Manual) PT INR ABG pH POC ABG pCO2 POC ABG pO2 ABG pO2 ABG HCO3 ABG O2 Saturation ABG Base Excess ABG Hemoglobin ABG Oxyhemoglobin ABG Sodium ABG Potassium ABG Chloride ABG Glucose Oxyhemoglobin Sodium Potassium Chloride Carbon Dioxide BUN Creatinine Glucose POC Glucose 149 H 178 H Lactic Acid Calcium Phosphorus Magnesium Total Bilirubin AST ALT Alkaline Phosphatase Total Protein Albumin Triglycerides Arterial Blood Glucose Arterial Blood Ionized Calcium Digoxin Crossmatch 01/11/21 01/11/21 01/12/21 17:31 23:14 05:18 WBC RBC Hgb Hct MCV MCHC RDW Plt Count Lymph % (Auto) [place] % (Auto) Lymph # (Auto) [place] # (Auto) Seg Neutrophils % Seg Neuts % (Manual) Lymphocytes % (Manual) Monocytes % (Manual) Seg Neutrophils # Seg Neutrophils # Man Lymphocytes # (Manual) Monocytes # (Manual) PT INR ABG pH POC ABG pCO2 POC ABG pO2 ABG pO2 ABG HCO3 ABG O2 Saturation ABG Base Excess ABG Hemoglobin ABG Oxyhemoglobin ABG Sodium ABG Potassium ABG Chloride ABG Glucose Oxyhemoglobin Sodium Potassium Chloride Carbon Dioxide BUN Creatinine Glucose POC Glucose 158 H 145 H 148 H Lactic Acid Calcium Phosphorus Magnesium Total Bilirubin AST ALT Alkaline Phosphatase Total Protein Albumin Triglycerides Arterial Blood Glucose Arterial Blood Ionized Calcium Digoxin Crossmatch 01/12/21 01/12/21 06:50 10:45 WBC RBC Hgb Hct MCV MCHC RDW Plt Count Lymph % (Auto) [place] % (Auto) Lymph # (Auto) [place] # (Auto) Seg Neutrophils % Seg Neuts % (Manual) Lymphocytes % (Manual) Monocytes % (Manual) Seg Neutrophils # Seg Neutrophils # Man Lymphocytes # (Manual) Monocytes # (Manual) PT INR ABG pH POC ABG pCO2 POC ABG pO2 ABG pO2 ABG HCO3 ABG O2 Saturation ABG Base Excess ABG Hemoglobin ABG Oxyhemoglobin ABG Sodium ABG Potassium ABG Chloride ABG Glucose Oxyhemoglobin Sodium Potassium 2.9 L* D Chloride 94.8 L Carbon Dioxide BUN 102 H Creatinine 8.3 H Glucose 139 H POC Glucose 151 H Lactic Acid Calcium 8.1 L Phosphorus 5.00 H Magnesium Total Bilirubin AST ALT Alkaline Phosphatase Total Protein Albumin Triglycerides Arterial Blood Glucose Arterial Blood Ionized Calcium Digoxin Crossmatch Allied health notes reviewed: nursing
--- NOTE | 2021-01-13 14:11 | Progress Note ---
Assessment and Plan Acute hypoxemic respiratory failure, on mechanical ventilatory support. Severe Sepsis Peritonitis Acute small-bowel obstruction with tissue necrosis. End-stage renal disease, on dialysis. Hypertension. Crohn's disease. Gastroesophageal reflux disease. Heart failure with reduced ejection fraction. Hyperkalemia. Anemia that is normocytic. Lactic acidosis. Oropharyngeal dysphagia (discussed case at length with Surgery & ID; will manage conservatively especially as HARIS in place and follow clinical;ly; he has been restarted on empiric AB's and an octreotide drip. We will keep the possibility of abscess / loculation formation and will re-image as clinically indicated) - continue octreotide - increase Robinul frequency to 0.2mg IV q6h - discontinue benadryl - follow clinically for S&S of infection re: fevers / WBC - continue total parenteral nutrition - prn vasopressors for target MAP > 65 mmHg - continue wound care per RN/WCN - continue care as below otherwise; - continue to wean supplemental oxygen for target O2 sat's > 92% acutely - aspiration precautions - continue bronchodilators with pulmonary hygiene per RT - wean per pulmonary driven protocols otherwise - HD/UF per nephrology prescription for toxin and volume control - avoid nephrotoxins, renally dose all medications - continue accuchecks with glycemic control per SSI (While critically ill target blood glucose of 140-180 mg/dL; avoid hypoglycemia) - sedation prn for target RASS 0 to -1 - continue to avoid benzodiazepine's, reduce the possibility of delirium - complete AB's per ID rec's - prn analgesia per CPOT score - Maintenance of sleep-wake cycle, avoid delirium - enteral nutritional support at goal rate as tolerated (once cleared by david moss) - G.I. & VTE prophylaxis - PT/OT/ROM exercises - continue mobility protocols for pressure ulcer prophylaxis - Monitor hemodynamics closely - continue other care per attending / other consultants - discharge planning ongoing concurrently .... Re-evaluate in am & prn CONDITION: FAIR PROGNOSIS: GUARDED CODE STATUS: FULL CODE I have spent ( >35 ) minutes with the patient w/ >50% of the time spent counseling and/or coordinating care for this patient. Counseling topics and/or how time was spent coordinating patient's care is outlined in the impression and plan above. Subjective Date of service: 01/13/21 Principal diagnosis: Ac hypoxemic resp failure; Severe Sepsis; Peritonitis; Acute SBO; ESRD; CHF Interval history: Patient is seen today for: Ac hypoxemic resp failure; Severe Sepsis; Peritonitis; Acute SBO; ESRD on Dialysis; HTN; Crohn's disease; HFrEF Seen and examined at bedside; 24hour events reviewed; nursing and respiratory care staff consulted; no adverse overnight events reported to me; resting in bed; oral secretions persist; HARIS draining billious fluid but no guarding of high grade fevers; no emesis or overt aspiration; s/p HD/UF and tolerated well Objective Vital Signs - 12hr 01/13/21 01/13/21 01/13/21 02:00 03:00 04:00 Temperature 97.6 F Pulse Rate 69 72 72 Pulse Rate [ 72 From Monitor] Respiratory 16 17 16 Rate Blood Pressure 155/68 164/68 161/75 O2 Sat by Pulse 98 97 97 Oximetry 01/13/21 01/13/21 01/13/21 05:00 06:00 06:12 Temperature Pulse Rate 89 77 78 Pulse Rate [ From Monitor] Respiratory 21 18 Rate Blood Pressure 167/75 164/72 164/72 O2 Sat by Pulse 98 98 Oximetry 01/13/21 01/13/21 01/13/21 07:00 07:28 07:53 Temperature 98.4 F Pulse Rate 77 Pulse Rate [ From Monitor] Respiratory 19 Rate Blood Pressure 161/64 O2 Sat by Pulse 97 99 Oximetry 01/13/21 01/13/21 01/13/21 08:00 09:00 09:25 Temperature 98.5 F Pulse Rate 81 76 75 Pulse Rate [ 72 From Monitor] Respiratory 18 14 17 Rate Blood Pressure 158/68 160/73 161/68 O2 Sat by Pulse 99 97 Oximetry 01/13/21 01/13/21 01/13/21 09:30 09:45 10:00 Temperature Pulse Rate 82 84 85 Pulse Rate [ From Monitor] Respiratory 17 Rate Blood Pressure 165/70 159/67 159/69 O2 Sat by Pulse Oximetry 01/13/21 01/13/21 01/13/21 10:15 10:30 10:45 Temperature Pulse Rate 86 87 86 Pulse Rate [ From Monitor] Respiratory Rate Blood Pressure 142/65 141/70 148/64 O2 Sat by Pulse Oximetry 01/13/21 01/13/21 01/13/21 11:00 11:15 11:30 Temperature Pulse Rate 83 86 87 Pulse Rate [ From Monitor] Respiratory 16 Rate Blood Pressure 143/60 145/66 136/67 O2 Sat by Pulse Oximetry 01/13/21 01/13/21 01/13/21 11:45 12:00 12:15 Temperature 99.1 F Pulse Rate 85 88 62 Pulse Rate [ 72 From Monitor] Respiratory 18 Rate Blood Pressure 139/64 138/75 148/68 O2 Sat by Pulse 98 Oximetry 01/13/21 01/13/21 01/13/21 12:30 12:45 13:00 Temperature Pulse Rate 69 88 96 H Pulse Rate [ From Monitor] Respiratory 14 Rate Blood Pressure 148/73 133/78 138/69 O2 Sat by Pulse 98 Oximetry 01/13/21 01/13/21 13:02 13:06 Temperature 99.1 F Pulse Rate 90 79 Pulse Rate [ From Monitor] Respiratory 18 Rate Blood Pressure 138/69 143/74 O2 Sat by Pulse Oximetry Constitutional: no acute distress, other (elderly male with milldy increased respiratory effort) Eyes: non-icteric ENT: oropharynx moist, oropharyngeal exudate pre (improved), other (macroglossia improved) Neck: supple, no lymphadenopathy, no JVD Effort: normal Ascultation: Bilateral: clear, diminished breath sounds Percussion: Bilateral: not dull Cardiovascular: regular rate and rhythm Gastrointestinal: hypoactive bowel sounds, soft, non-tender, non-distended (protuberant), other (Midline abdominal incision ) Integumentary: other (Midline abdominal incision ) Extremities: no cyanosis, no edema, pulses normal, no ischemia or petechiae Neurologic: non-focal exam (grossly), pupils equal and round, CN II-XII normal, motor strength normal and (sedated) Psychiatric: mood appropriate, affect normal CBC and BMP: 01/13/21 03:45 01/13/21 03:45 ABG, PT/INR, D-dimer: ABG ABG pH 7.345 pH Units (7.350-7.450) L 01/07/21 17:14 POC ABG pCO2 41.4 mmHg (32.0-48.0) 01/07/21 03:07 ABG pCO2 40.3 mm Hg 01/07/21 17:14 POC ABG pO2 94.5 mmHg (83-108) 01/07/21 03:07 ABG pO2 67.4 mm Hg (80.0-90.0) L 01/07/21 17:14 POC ABG HCO3 22.7 01/07/21 03:07 ABG O2 Saturation 94.3 % (95.0-99.0) L 01/07/21 17:14 PT/INR, D-dimer PT 16.9 Sec. (12.2-14.9) H 01/01/21 12:45 INR 1.39 (0.87-1.13) H 01/01/21 12:45 Abnormal lab findings: Abnormal Labs 12/22/20 12/22/20 12/22/20 14:38 14:38 14:38 WBC RBC Hgb 11.2 L Hct 35.0 L MCV MCHC RDW 16.7 H Plt Count Lymph % (Auto) [place] % (Auto) Lymph # (Auto) [place] # (Auto) Seg Neutrophils % Seg Neuts % (Manual) 94.0 H Lymphocytes % (Manual) 5.0 L Monocytes % (Manual) Seg Neutrophils # Seg Neutrophils # Man Lymphocytes # (Manual) 0.3 L Monocytes # (Manual) PT INR ABG pH POC ABG pCO2 POC ABG pO2 ABG pO2 ABG HCO3 ABG O2 Saturation ABG Base Excess ABG Hemoglobin ABG Oxyhemoglobin ABG Sodium ABG Potassium ABG Chloride ABG Glucose Oxyhemoglobin Sodium Potassium Chloride Carbon Dioxide BUN 58 H Creatinine 13.2 H Glucose 113 H POC Glucose Lactic Acid 3.60 H* Calcium Phosphorus Magnesium Total Bilirubin 1.30 H AST ALT Alkaline Phosphatase 155 H Total Protein Albumin Triglycerides Arterial Blood Glucose Arterial Blood Ionized Calcium Digoxin Crossmatch 12/22/20 12/22/20 12/23/20 16:26 17:47 05:22 WBC RBC Hgb Hct MCV MCHC RDW Plt Count Lymph % (Auto) [place] % (Auto) Lymph # (Auto) [place] # (Auto) Seg Neutrophils % Seg Neuts % (Manual) Lymphocytes % (Manual) Monocytes % (Manual) Seg Neutrophils # Seg Neutrophils # Man Lymphocytes # (Manual) Monocytes # (Manual) PT INR ABG pH POC ABG pCO2 POC ABG pO2 ABG pO2 ABG HCO3 ABG O2 Saturation ABG Base Excess ABG Hemoglobin ABG Oxyhemoglobin ABG Sodium ABG Potassium ABG Chloride ABG Glucose Oxyhemoglobin Sodium Potassium Chloride Carbon Dioxide BUN Creatinine Glucose POC Glucose Lactic Acid 2.80 H* 3.10 H* 2.30 H* Calcium Phosphorus Magnesium Total Bilirubin AST ALT Alkaline Phosphatase Total Protein Albumin Triglycerides Arterial Blood Glucose Arterial Blood Ionized Calcium Digoxin Crossmatch 12/23/20 12/23/20 12/23/20 05:22 05:22 06:35 WBC 12.1 H RBC Hgb 11.0 L Hct 33.7 L MCV MCHC RDW 16.9 H Plt Count Lymph % (Auto) [place] % (Auto) Lymph # (Auto) [place] # (Auto) Seg Neutrophils % Seg Neuts % (Manual) 93.0 H Lymphocytes % (Manual) 1.0 L Monocytes % (Manual) Seg Neutrophils # Seg Neutrophils # Man 11.3 H Lymphocytes # (Manual) 0.1 L Monocytes # (Manual) PT INR ABG pH POC ABG pCO2 POC ABG pO2 ABG pO2 ABG HCO3 ABG O2 Saturation ABG Base Excess ABG Hemoglobin ABG Oxyhemoglobin ABG Sodium ABG Potassium ABG Chloride ABG Glucose Oxyhemoglobin Sodium Potassium 5.7 H D Chloride Carbon Dioxide BUN 73 H Creatinine 14.2 H Glucose POC Glucose Lactic Acid 2.30 H* Calcium 7.9 L Phosphorus Magnesium Total Bilirubin 1.40 H AST 119 H ALT 130 H Alkaline Phosphatase 183 H Total Protein 6.1 L Albumin 3.6 L Triglycerides Arterial Blood Glucose Arterial Blood Ionized Calcium Digoxin Crossmatch 12/23/20 12/23/20 12/23/20 11:40 13:53 16:47 WBC RBC Hgb 10.0 L Hct 30.4 L MCV MCHC RDW Plt Count Lymph % (Auto) [place] % (Auto) Lymph # (Auto) [place] # (Auto) Seg Neutrophils % Seg Neuts % (Manual) Lymphocytes % (Manual) Monocytes % (Manual) Seg Neutrophils # Seg Neutrophils # Man Lymphocytes # (Manual) Monocytes # (Manual) PT INR ABG pH POC ABG pCO2 POC ABG pO2 137.5 H ABG pO2 ABG HCO3 ABG O2 Saturation ABG Base Excess ABG Hemoglobin 9.7 L ABG Oxyhemoglobin ABG Sodium 134.1 L ABG Potassium 6.6 H ABG Chloride ABG Glucose 103 H Oxyhemoglobin Sodium Potassium Chloride Carbon Dioxide BUN Creatinine Glucose POC Glucose Lactic Acid Calcium Phosphorus Magnesium Total Bilirubin AST ALT Alkaline Phosphatase Total Protein Albumin Triglycerides Arterial Blood Glucose 103 H Arterial Blood Ionized Calcium 3.8 L Digoxin Crossmatch See Detail 12/23/20 12/23/20 12/24/20 20:35 20:40 01:20 WBC RBC Hgb Hct MCV MCHC RDW Plt Count Lymph % (Auto) [place] % (Auto) Lymph # (Auto) [place] # (Auto) Seg Neutrophils % Seg Neuts % (Manual) Lymphocytes % (Manual) Monocytes % (Manual) Seg Neutrophils # Seg Neutrophils # Man Lymphocytes # (Manual) Monocytes # (Manual) PT INR ABG pH 7.252 L POC ABG pCO2 POC ABG pO2 ABG pO2 50.1 L ABG HCO3 ABG O2 Saturation 81.1 L ABG Base Excess -5.9 L ABG Hemoglobin 12.1 L ABG Oxyhemoglobin ABG Sodium ABG Potassium ABG Chloride ABG Glucose Oxyhemoglobin 78.6 L Sodium 134 L Potassium 6.9 H* D 6.3 H* Chloride Carbon Dioxide 18 L 20 L BUN 87 H 91 H Creatinine 15.3 H 15.3 H Glucose 103 H POC Glucose Lactic Acid Calcium 6.9 L 7.5 L Phosphorus Magnesium Total Bilirubin AST ALT Alkaline Phosphatase Total Protein Albumin Triglycerides Arterial Blood Glucose Arterial Blood Ionized Calcium Digoxin Crossmatch 12/24/20 12/24/20 12/24/20 04:00 10:29 10:29 WBC RBC 3.49 L Hgb 10.5 L Hct 31.2 L MCV MCHC RDW 17.5 H Plt Count 124 L Lymph % (Auto) 3.7 L [place] % (Auto) 9.8 H Lymph # (Auto) 0.2 L [place] # (Auto) Seg Neutrophils % 85.9 H Seg Neuts % (Manual) Lymphocytes % (Manual) Monocytes % (Manual) Seg Neutrophils # Seg Neutrophils # Man Lymphocytes # (Manual) Monocytes # (Manual) PT INR ABG pH POC ABG pCO2 28.1 L POC ABG pO2 ABG pO2 ABG HCO3 ABG O2 Saturation ABG Base Excess ABG Hemoglobin ABG Oxyhemoglobin ABG Sodium 133.9 L ABG Potassium 5.3 H ABG Chloride 108.0 H ABG Glucose Oxyhemoglobin Sodium Potassium 5.6 H Chloride Carbon Dioxide 19 L BUN 99 H Creatinine 16.9 H Glucose 52 L POC Glucose Lactic Acid Calcium 7.6 L Phosphorus Magnesium Total Bilirubin 3.50 H AST 67 H ALT 71 H Alkaline Phosphatase Total Protein 3.5 L D Albumin 2.1 L Triglycerides Arterial Blood Glucose Arterial Blood Ionized Calcium 4.0 L Digoxin Crossmatch 12/25/20 12/25/20 12/25/20 03:33 04:00 04:00 WBC 3.8 L RBC 2.90 L Hgb 8.6 L Hct 25.7 L MCV MCHC RDW 16.7 H Plt Count 113 L Lymph % (Auto) [place] % (Auto) Lymph # (Auto) [place] # (Auto) Seg Neutrophils % Seg Neuts % (Manual) Lymphocytes % (Manual) Monocytes % (Manual) Seg Neutrophils # Seg Neutrophils # Man Lymphocytes # (Manual) Monocytes # (Manual) PT INR ABG pH 7.544 H POC ABG pCO2 28.2 L POC ABG pO2 62.8 L ABG pO2 ABG HCO3 ABG O2 Saturation ABG Base Excess ABG Hemoglobin 9.3 L ABG Oxyhemoglobin 93.0 L ABG Sodium 130.3 L ABG Potassium ABG Chloride ABG Glucose 97 H Oxyhemoglobin Sodium Potassium Chloride Carbon Dioxide BUN 62 H Creatinine 11.4 H Glucose POC Glucose Lactic Acid Calcium 7.7 L Phosphorus 5.00 H Magnesium Total Bilirubin AST ALT Alkaline Phosphatase Total Protein Albumin Triglycerides Arterial Blood Glucose 97 H Arterial Blood Ionized Calcium 3.9 L Digoxin Crossmatch 12/26/20 12/26/20 12/27/20 04:46 Unknown 03:40 WBC 4.1 L RBC 2.61 L Hgb 7.8 L Hct 23.4 L MCV MCHC RDW 17.1 H Plt Count 119 L Lymph % (Auto) 5.3 L [place] % (Auto) 10.6 H Lymph # (Auto) 0.2 L [place] # (Auto) Seg Neutrophils % 78.8 H Seg Neuts % (Manual) Lymphocytes % (Manual) Monocytes % (Manual) Seg Neutrophils # Seg Neutrophils # Man Lymphocytes # (Manual) Monocytes # (Manual) PT INR ABG pH 7.333 L 7.332 L POC ABG pCO2 POC ABG pO2 ABG pO2 ABG HCO3 26.9 H ABG O2 Saturation ABG Base Excess -2.4 L ABG Hemoglobin 6.8 L 7.2 L ABG Oxyhemoglobin ABG Sodium ABG Potassium ABG Chloride ABG Glucose Oxyhemoglobin 93.0 L 93.1 L Sodium Potassium Chloride Carbon Dioxide BUN Creatinine Glucose POC Glucose Lactic Acid Calcium Phosphorus Magnesium Total Bilirubin AST ALT Alkaline Phosphatase Total Protein Albumin Triglycerides Arterial Blood Glucose Arterial Blood Ionized Calcium Digoxin Crossmatch 12/27/20 12/27/20 12/27/20 06:40 06:40 11:22 WBC 4.4 L RBC 2.49 L Hgb 7.4 L Hct 22.4 L MCV MCHC RDW 17.1 H Plt Count 111 L Lymph % (Auto) 6.7 L [place] % (Auto) 12.6 H Lymph # (Auto) 0.3 L [place] # (Auto) Seg Neutrophils % 77.6 H Seg Neuts % (Manual) Lymphocytes % (Manual) Monocytes % (Manual) Seg Neutrophils # Seg Neutrophils # Man Lymphocytes # (Manual) Monocytes # (Manual) PT INR ABG pH POC ABG pCO2 POC ABG pO2 ABG pO2 ABG HCO3 ABG O2 Saturation ABG Base Excess ABG Hemoglobin ABG Oxyhemoglobin ABG Sodium ABG Potassium ABG Chloride ABG Glucose Oxyhemoglobin Sodium Potassium Chloride Carbon Dioxide BUN 64 H Creatinine 9.8 H Glucose 147 H POC Glucose 134 H Lactic Acid Calcium 8.3 L Phosphorus 5.00 H Magnesium Total Bilirubin 3.70 H AST 72 H ALT Alkaline Phosphatase 142 H Total Protein 5.1 L D Albumin 2.9 L Triglycerides Arterial Blood Glucose Arterial Blood Ionized Calcium Digoxin Crossmatch 12/27/20 12/27/20 12/28/20 17:29 23:31 03:09 WBC RBC Hgb Hct MCV MCHC RDW Plt Count Lymph % (Auto) [place] % (Auto) Lymph # (Auto) [place] # (Auto) Seg Neutrophils % Seg Neuts % (Manual) Lymphocytes % (Manual) Monocytes % (Manual) Seg Neutrophils # Seg Neutrophils # Man Lymphocytes # (Manual) Monocytes # (Manual) PT INR ABG pH 7.474 H POC ABG pCO2 POC ABG pO2 ABG pO2 ABG HCO3 ABG O2 Saturation ABG Base Excess ABG Hemoglobin 7.8 L ABG Oxyhemoglobin ABG Sodium ABG Potassium ABG Chloride ABG Glucose Oxyhemoglobin Sodium Potassium Chloride Carbon Dioxide BUN Creatinine Glucose POC Glucose 121 H 131 H Lactic Acid Calcium Phosphorus Magnesium Total Bilirubin AST ALT Alkaline Phosphatase Total Protein Albumin Triglycerides Arterial Blood Glucose Arterial Blood Ionized Calcium Digoxin Crossmatch 12/28/20 12/28/20 12/28/20 05:37 05:40 05:40 WBC 4.3 L RBC 2.40 L Hgb 7.2 L Hct 21.5 L MCV MCHC RDW 17.4 H Plt Count 112 L Lymph % (Auto) 6.5 L [place] % (Auto) 16.7 H Lymph # (Auto) 0.3 L [place] # (Auto) Seg Neutrophils % 71.1 H Seg Neuts % (Manual) Lymphocytes % (Manual) Monocytes % (Manual) Seg Neutrophils # Seg Neutrophils # Man Lymphocytes # (Manual) Monocytes # (Manual) PT INR ABG pH POC ABG pCO2 POC ABG pO2 ABG pO2 ABG HCO3 ABG O2 Saturation ABG Base Excess ABG Hemoglobin ABG Oxyhemoglobin ABG Sodium ABG Potassium ABG Chloride ABG Glucose Oxyhemoglobin Sodium Potassium Chloride Carbon Dioxide BUN 85 H Creatinine 11.5 H Glucose 132 H POC Glucose 121 H Lactic Acid Calcium 8.2 L Phosphorus Magnesium 2.40 H Total Bilirubin 3.80 H AST 70 H ALT Alkaline Phosphatase 176 H Total Protein 5.0 L Albumin 2.9 L Triglycerides Arterial Blood Glucose Arterial Blood Ionized Calcium Digoxin Crossmatch 12/28/20 12/28/20 12/28/20 11:34 15:00 17:35 WBC RBC Hgb Hct MCV MCHC RDW Plt Count Lymph % (Auto) [place] % (Auto) Lymph # (Auto) [place] # (Auto) Seg Neutrophils % Seg Neuts % (Manual) Lymphocytes % (Manual) Monocytes % (Manual) Seg Neutrophils # Seg Neutrophils # Man Lymphocytes # (Manual) Monocytes # (Manual) PT INR ABG pH 7.461 H POC ABG pCO2 POC ABG pO2 72.2 L ABG pO2 ABG HCO3 ABG O2 Saturation ABG Base Excess ABG Hemoglobin 8.2 L ABG Oxyhemoglobin 93.6 L ABG Sodium 134.1 L ABG Potassium 3.2 L ABG Chloride ABG Glucose 135 H Oxyhemoglobin Sodium Potassium Chloride Carbon Dioxide BUN Creatinine Glucose POC Glucose 137 H 144 H Lactic Acid Calcium Phosphorus Magnesium Total Bilirubin AST ALT Alkaline Phosphatase Total Protein Albumin Triglycerides Arterial Blood Glucose 135 H Arterial Blood Ionized Calcium 4.4 L Digoxin Crossmatch 12/28/20 12/28/20 12/29/20 19:44 Unknown 00:21 WBC RBC Hgb Hct MCV MCHC RDW Plt Count Lymph % (Auto) [place] % (Auto) Lymph # (Auto) [place] # (Auto) Seg Neutrophils % Seg Neuts % (Manual) Lymphocytes % (Manual) Monocytes % (Manual) Seg Neutrophils # Seg Neutrophils # Man Lymphocytes # (Manual) Monocytes # (Manual) PT INR ABG pH 7.474 H POC ABG pCO2 POC ABG pO2 ABG pO2 ABG HCO3 ABG O2 Saturation ABG Base Excess ABG Hemoglobin 7.8 L ABG Oxyhemoglobin ABG Sodium 133.2 L ABG Potassium ABG Chloride ABG Glucose 139 H Oxyhemoglobin Sodium 135 L Potassium Chloride 96.6 L Carbon Dioxide BUN 47 H Creatinine 7.4 H Glucose 130 H POC Glucose 142 H Lactic Acid Calcium 8.3 L Phosphorus Magnesium Total Bilirubin AST ALT Alkaline Phosphatase Total Protein Albumin Triglycerides Arterial Blood Glucose 139 H Arterial Blood Ionized Calcium 4.3 L Digoxin Crossmatch 12/29/20 12/29/20 12/29/20 05:16 05:16 05:26 WBC RBC 2.53 L Hgb 7.7 L Hct 22.8 L MCV MCHC RDW 17.0 H Plt Count 130 L Lymph % (Auto) [place] % (Auto) Lymph # (Auto) [place] # (Auto) Seg Neutrophils % Seg Neuts % (Manual) 79.0 H Lymphocytes % (Manual) 9.0 L Monocytes % (Manual) Seg Neutrophils # Seg Neutrophils # Man Lymphocytes # (Manual) 0.6 L Monocytes # (Manual) PT INR ABG pH POC ABG pCO2 POC ABG pO2 ABG pO2 ABG HCO3 ABG O2 Saturation ABG Base Excess ABG Hemoglobin ABG Oxyhemoglobin ABG Sodium ABG Potassium ABG Chloride ABG Glucose Oxyhemoglobin Sodium Potassium 3.4 L Chloride 96.6 L Carbon Dioxide BUN 59 H Creatinine 8.3 H Glucose 127 H POC Glucose 141 H Lactic Acid Calcium 8.2 L Phosphorus Magnesium Total Bilirubin 3.00 H AST 88 H ALT Alkaline Phosphatase 188 H Total Protein 5.1 L Albumin 2.8 L Triglycerides Arterial Blood Glucose Arterial Blood Ionized Calcium Digoxin Crossmatch 12/29/20 12/29/20 12/29/20 11:33 17:29 23:22 WBC RBC Hgb Hct MCV MCHC RDW Plt Count Lymph % (Auto) [place] % (Auto) Lymph # (Auto) [place] # (Auto) Seg Neutrophils % Seg Neuts % (Manual) Lymphocytes % (Manual) Monocytes % (Manual) Seg Neutrophils # Seg Neutrophils # Man Lymphocytes # (Manual) Monocytes # (Manual) PT INR ABG pH POC ABG pCO2 POC ABG pO2 ABG pO2 ABG HCO3 ABG O2 Saturation ABG Base Excess ABG Hemoglobin ABG Oxyhemoglobin ABG Sodium ABG Potassium ABG Chloride ABG Glucose Oxyhemoglobin Sodium Potassium Chloride Carbon Dioxide BUN Creatinine Glucose POC Glucose 144 H 130 H 117 H Lactic Acid Calcium Phosphorus Magnesium Total Bilirubin AST ALT Alkaline Phosphatase Total Protein Albumin Triglycerides Arterial Blood Glucose Arterial Blood Ionized Calcium Digoxin Crossmatch 12/30/20 12/30/20 12/30/20 05:23 08:15 09:00 WBC RBC Hgb Hct MCV MCHC RDW Plt Count Lymph % (Auto) [place] % (Auto) Lymph # (Auto) [place] # (Auto) Seg Neutrophils % Seg Neuts % (Manual) Lymphocytes % (Manual) Monocytes % (Manual) Seg Neutrophils # Seg Neutrophils # Man Lymphocytes # (Manual) Monocytes # (Manual) PT INR ABG pH POC ABG pCO2 POC ABG pO2 ABG pO2 ABG HCO3 ABG O2 Saturation ABG Base Excess ABG Hemoglobin ABG Oxyhemoglobin ABG Sodium ABG Potassium ABG Chloride ABG Glucose Oxyhemoglobin Sodium 135 L Potassium Chloride 95.9 L Carbon Dioxide BUN 85 H Creatinine 10.6 H Glucose 128 H POC Glucose 135 H 127 H Lactic Acid Calcium 8.3 L Phosphorus Magnesium Total Bilirubin 2.40 H AST 85 H ALT Alkaline Phosphatase 216 H Total Protein 5.3 L Albumin 2.6 L Triglycerides 155 H Arterial Blood Glucose Arterial Blood Ionized Calcium Digoxin Crossmatch 12/30/20 12/30/20 12/30/20 09:00 11:53 15:49 WBC RBC 2.61 L Hgb 7.8 L Hct 23.7 L MCV MCHC RDW 17.3 H Plt Count Lymph % (Auto) [place] % (Auto) Lymph # (Auto) [place] # (Auto) Seg Neutrophils % Seg Neuts % (Manual) Lymphocytes % (Manual) Monocytes % (Manual) Seg Neutrophils # Seg Neutrophils # Man Lymphocytes # (Manual) Monocytes # (Manual) PT INR ABG pH POC ABG pCO2 POC ABG pO2 ABG pO2 ABG HCO3 ABG O2 Saturation ABG Base Excess ABG Hemoglobin ABG Oxyhemoglobin ABG Sodium ABG Potassium ABG Chloride ABG Glucose Oxyhemoglobin Sodium Potassium Chloride Carbon Dioxide BUN Creatinine Glucose POC Glucose 155 H 146 H Lactic Acid Calcium Phosphorus Magnesium Total Bilirubin AST ALT Alkaline Phosphatase Total Protein Albumin Triglycerides Arterial Blood Glucose Arterial Blood Ionized Calcium Digoxin Crossmatch 12/30/20 12/30/20 12/31/20 17:53 23:45 03:56 WBC RBC Hgb Hct MCV MCHC RDW Plt Count Lymph % (Auto) [place] % (Auto) Lymph # (Auto) [place] # (Auto) Seg Neutrophils % Seg Neuts % (Manual) Lymphocytes % (Manual) Monocytes % (Manual) Seg Neutrophils # Seg Neutrophils # Man Lymphocytes # (Manual) Monocytes # (Manual) PT INR ABG pH POC ABG pCO2 POC ABG pO2 49.4 L ABG pO2 ABG HCO3 ABG O2 Saturation ABG Base Excess ABG Hemoglobin 10.3 L ABG Oxyhemoglobin 84.2 L ABG Sodium 133.1 L ABG Potassium ABG Chloride ABG Glucose 173 H Oxyhemoglobin Sodium Potassium Chloride Carbon Dioxide BUN Creatinine Glucose POC Glucose 139 H 173 H Lactic Acid Calcium Phosphorus Magnesium Total Bilirubin AST ALT Alkaline Phosphatase Total Protein Albumin Triglycerides Arterial Blood Glucose 173 H Arterial Blood Ionized Calcium Digoxin Crossmatch 12/31/20 12/31/20 12/31/20 05:07 06:51 06:51 WBC 20.3 H RBC 3.32 L Hgb 9.8 L Hct 30.3 L D MCV MCHC RDW 17.3 H Plt Count Lymph % (Auto) [place] % (Auto) Lymph # (Auto) [place] # (Auto) Seg Neutrophils % Seg Neuts % (Manual) 87.0 H Lymphocytes % (Manual) 10.0 L Monocytes % (Manual) Seg Neutrophils # Seg Neutrophils # Man 17.7 H Lymphocytes # (Manual) Monocytes # (Manual) PT INR ABG pH POC ABG pCO2 POC ABG pO2 ABG pO2 ABG HCO3 ABG O2 Saturation ABG Base Excess ABG Hemoglobin ABG Oxyhemoglobin ABG Sodium ABG Potassium ABG Chloride ABG Glucose Oxyhemoglobin Sodium Potassium 5.2 H D Chloride Carbon Dioxide BUN 62 H Creatinine 8.4 H Glucose 116 H POC Glucose 120 H Lactic Acid Calcium Phosphorus Magnesium 1.60 L Total Bilirubin AST ALT Alkaline Phosphatase Total Protein Albumin Triglycerides Arterial Blood Glucose Arterial Blood Ionized Calcium Digoxin Crossmatch 12/31/20 12/31/20 12/31/20 09:38 12:19 12:22 WBC RBC Hgb Hct MCV MCHC RDW Plt Count Lymph % (Auto) [place] % (Auto) Lymph # (Auto) [place] # (Auto) Seg Neutrophils % Seg Neuts % (Manual) Lymphocytes % (Manual) Monocytes % (Manual) Seg Neutrophils # Seg Neutrophils # Man Lymphocytes # (Manual) Monocytes # (Manual) PT INR ABG pH POC ABG pCO2 POC ABG pO2 ABG pO2 354.0 H ABG HCO3 ABG O2 Saturation 99.6 H ABG Base Excess ABG Hemoglobin 9.1 L ABG Oxyhemoglobin ABG Sodium ABG Potassium ABG Chloride ABG Glucose Oxyhemoglobin Sodium Potassium 5.2 H Chloride Carbon Dioxide BUN Creatinine Glucose POC Glucose 132 H Lactic Acid Calcium Phosphorus Magnesium Total Bilirubin AST ALT Alkaline Phosphatase Total Protein Albumin Triglycerides Arterial Blood Glucose Arterial Blood Ionized Calcium Digoxin Crossmatch 12/31/20 01/01/21 01/01/21 23:23 03:03 05:04 WBC RBC Hgb Hct MCV MCHC RDW Plt Count Lymph % (Auto) [place] % (Auto) Lymph # (Auto) [place] # (Auto) Seg Neutrophils % Seg Neuts % (Manual) Lymphocytes % (Manual) Monocytes % (Manual) Seg Neutrophils # Seg Neutrophils # Man Lymphocytes # (Manual) Monocytes # (Manual) PT INR ABG pH POC ABG pCO2 POC ABG pO2 79.6 L ABG pO2 ABG HCO3 ABG O2 Saturation ABG Base Excess ABG Hemoglobin 9.2 L ABG Oxyhemoglobin ABG Sodium 131.6 L ABG Potassium 5.8 H ABG Chloride ABG Glucose 177 H Oxyhemoglobin Sodium Potassium Chloride Carbon Dioxide BUN Creatinine Glucose POC Glucose 174 H 167 H Lactic Acid Calcium Phosphorus Magnesium Total Bilirubin AST ALT Alkaline Phosphatase Total Protein Albumin Triglycerides Arterial Blood Glucose 177 H Arterial Blood Ionized Calcium Digoxin Crossmatch 01/01/21 01/01/21 01/01/21 07:31 07:31 11:31 WBC 26.1 H RBC 2.95 L Hgb 8.6 L Hct 27.1 L MCV MCHC RDW 18.2 H Plt Count Lymph % (Auto) [place] % (Auto) Lymph # (Auto) [place] # (Auto) Seg Neutrophils % Seg Neuts % (Manual) 96.0 H Lymphocytes % (Manual) 4.0 L Monocytes % (Manual) Seg Neutrophils # Seg Neutrophils # Man 25.1 H Lymphocytes # (Manual) 1.0 L Monocytes # (Manual) PT INR ABG pH POC ABG pCO2 POC ABG pO2 ABG pO2 ABG HCO3 ABG O2 Saturation ABG Base Excess ABG Hemoglobin ABG Oxyhemoglobin ABG Sodium ABG Potassium ABG Chloride ABG Glucose Oxyhemoglobin Sodium Potassium 6.0 H Chloride Carbon Dioxide 21 L BUN 89 H Creatinine 10.5 H Glucose 179 H POC Glucose Lactic Acid Calcium Phosphorus Magnesium Total Bilirubin AST ALT Alkaline Phosphatase Total Protein Albumin Triglycerides Arterial Blood Glucose Arterial Blood Ionized Calcium Digoxin Crossmatch See Detail 01/01/21 01/01/21 01/01/21 11:51 12:45 16:52 WBC RBC Hgb Hct MCV MCHC RDW Plt Count Lymph % (Auto) [place] % (Auto) Lymph # (Auto) [place] # (Auto) Seg Neutrophils % Seg Neuts % (Manual) Lymphocytes % (Manual) Monocytes % (Manual) Seg Neutrophils # Seg Neutrophils # Man Lymphocytes # (Manual) Monocytes # (Manual) PT 16.9 H INR 1.39 H ABG pH POC ABG pCO2 POC ABG pO2 ABG pO2 ABG HCO3 ABG O2 Saturation ABG Base Excess ABG Hemoglobin ABG Oxyhemoglobin ABG Sodium ABG Potassium ABG Chloride ABG Glucose Oxyhemoglobin Sodium Potassium Chloride Carbon Dioxide BUN Creatinine Glucose POC Glucose 157 H 177 H Lactic Acid Calcium Phosphorus Magnesium Total Bilirubin AST ALT Alkaline Phosphatase Total Protein Albumin Triglycerides Arterial Blood Glucose Arterial Blood Ionized Calcium Digoxin Crossmatch 01/01/21 01/01/21 01/01/21 17:58 17:58 20:12 WBC 26.9 H RBC 3.14 L Hgb 9.3 L Hct 29.6 L MCV MCHC RDW 17.5 H Plt Count Lymph % (Auto) [place] % (Auto) Lymph # (Auto) [place] # (Auto) Seg Neutrophils % Seg Neuts % (Manual) 84.0 H Lymphocytes % (Manual) 4.0 L Monocytes % (Manual) 12.0 H Seg Neutrophils # Seg Neutrophils # Man 22.6 H Lymphocytes # (Manual) 1.1 L Monocytes # (Manual) 3.2 H PT INR ABG pH POC ABG pCO2 POC ABG pO2 ABG pO2 ABG HCO3 ABG O2 Saturation ABG Base Excess ABG Hemoglobin ABG Oxyhemoglobin ABG Sodium ABG Potassium ABG Chloride ABG Glucose Oxyhemoglobin Sodium 136 L Potassium 6.2 H* Chloride Carbon Dioxide 21 L BUN 92 H Creatinine 10.8 H Glucose 171 H POC Glucose 288 H Lactic Acid Calcium Phosphorus Magnesium Total Bilirubin 2.10 H AST 223 H ALT 100 H Alkaline Phosphatase 206 H Total Protein 4.8 L Albumin 1.9 L Triglycerides Arterial Blood Glucose Arterial Blood Ionized Calcium Digoxin Crossmatch 01/02/21 01/02/21 01/02/21 00:12 00:45 03:05 WBC RBC Hgb Hct MCV MCHC RDW Plt Count Lymph % (Auto) [place] % (Auto) Lymph # (Auto) [place] # (Auto) Seg Neutrophils % Seg Neuts % (Manual) Lymphocytes % (Manual) Monocytes % (Manual) Seg Neutrophils # Seg Neutrophils # Man Lymphocytes # (Manual) Monocytes # (Manual) PT INR ABG pH POC ABG pCO2 POC ABG pO2 81.8 L ABG pO2 ABG HCO3 ABG O2 Saturation ABG Base Excess ABG Hemoglobin 8.0 L ABG Oxyhemoglobin ABG Sodium 129.8 L ABG Potassium 5.4 H ABG Chloride ABG Glucose 257 H Oxyhemoglobin Sodium 136 L Potassium 5.8 H Chloride 96.6 L Carbon Dioxide BUN 95 H Creatinine 11.2 H Glucose 238 H POC Glucose 223 H Lactic Acid Calcium Phosphorus Magnesium Total Bilirubin AST ALT Alkaline Phosphatase Total Protein Albumin Triglycerides Arterial Blood Glucose 257 H Arterial Blood Ionized Calcium 4.0 L Digoxin Crossmatch 01/02/21 01/02/21 01/02/21 06:25 08:00 08:00 WBC 17.5 H RBC 2.31 L Hgb 6.7 L Hct 22.1 L D MCV 96 H MCHC 30 L RDW 18.4 H Plt Count Lymph % (Auto) [place] % (Auto) Lymph # (Auto) [place] # (Auto) Seg Neutrophils % Seg Neuts % (Manual) Lymphocytes % (Manual) Monocytes % (Manual) Seg Neutrophils # Seg Neutrophils # Man Lymphocytes # (Manual) Monocytes # (Manual) PT INR ABG pH POC ABG pCO2 POC ABG pO2 ABG pO2 ABG HCO3 ABG O2 Saturation ABG Base Excess ABG Hemoglobin ABG Oxyhemoglobin ABG Sodium ABG Potassium ABG Chloride ABG Glucose Oxyhemoglobin Sodium 134 L Potassium 5.3 H Chloride 92.9 L Carbon Dioxide BUN 101 H Creatinine 10.9 H Glucose 560 H* POC Glucose 239 H Lactic Acid Calcium 7.6 L Phosphorus 6.50 H Magnesium Total Bilirubin AST ALT Alkaline Phosphatase Total Protein Albumin Triglycerides Arterial Blood Glucose Arterial Blood Ionized Calcium Digoxin Crossmatch 01/02/21 01/02/21 01/02/21 11:26 15:00 17:57 WBC RBC Hgb Hct MCV MCHC RDW Plt Count Lymph % (Auto) [place] % (Auto) Lymph # (Auto) [place] # (Auto) Seg Neutrophils % Seg Neuts % (Manual) Lymphocytes % (Manual) Monocytes % (Manual) Seg Neutrophils # Seg Neutrophils # Man Lymphocytes # (Manual) Monocytes # (Manual) PT INR ABG pH POC ABG pCO2 POC ABG pO2 ABG pO2 ABG HCO3 ABG O2 Saturation ABG Base Excess ABG Hemoglobin ABG Oxyhemoglobin ABG Sodium ABG Potassium ABG Chloride ABG Glucose Oxyhemoglobin Sodium Potassium Chloride Carbon Dioxide BUN Creatinine Glucose 241 H POC Glucose 205 H 272 H Lactic Acid Calcium Phosphorus Magnesium Total Bilirubin AST ALT Alkaline Phosphatase Total Protein Albumin Triglycerides Arterial Blood Glucose Arterial Blood Ionized Calcium Digoxin Crossmatch 01/02/21 01/02/21 01/03/21 23:25 23:43 03:45 WBC RBC Hgb Hct MCV MCHC RDW Plt Count Lymph % (Auto) [place] % (Auto) Lymph # (Auto) [place] # (Auto) Seg Neutrophils % Seg Neuts % (Manual) Lymphocytes % (Manual) Monocytes % (Manual) Seg Neutrophils # Seg Neutrophils # Man Lymphocytes # (Manual) Monocytes # (Manual) PT INR ABG pH POC ABG pCO2 48.3 H POC ABG pO2 134.4 H 79.7 L ABG pO2 ABG HCO3 ABG O2 Saturation ABG Base Excess ABG Hemoglobin 7.7 L 8.6 L ABG Oxyhemoglobin ABG Sodium 131.8 L 130.4 L ABG Potassium ABG Chloride 97.0 L ABG Glucose 218 H 238 H Oxyhemoglobin Sodium Potassium Chloride Carbon Dioxide BUN Creatinine Glucose POC Glucose 218 H Lactic Acid Calcium Phosphorus Magnesium Total Bilirubin AST ALT Alkaline Phosphatase Total Protein Albumin Triglycerides Arterial Blood Glucose 218 H 238 H Arterial Blood Ionized Calcium 4.1 L 4.0 L Digoxin Crossmatch 01/03/21 01/03/21 01/03/21 04:37 04:37 05:39 WBC 15.2 H RBC 2.38 L Hgb 7.3 L Hct 21.6 L MCV MCHC RDW 16.6 H Plt Count Lymph % (Auto) [place] % (Auto) Lymph # (Auto) [place] # (Auto) Seg Neutrophils % Seg Neuts % (Manual) Lymphocytes % (Manual) Monocytes % (Manual) Seg Neutrophils # Seg Neutrophils # Man Lymphocytes # (Manual) Monocytes # (Manual) PT INR ABG pH POC ABG pCO2 POC ABG pO2 ABG pO2 ABG HCO3 ABG O2 Saturation ABG Base Excess ABG Hemoglobin ABG Oxyhemoglobin ABG Sodium ABG Potassium ABG Chloride ABG Glucose Oxyhemoglobin Sodium 136 L Potassium Chloride 94.5 L Carbon Dioxide BUN 69 H Creatinine 8.0 H Glucose 219 H POC Glucose 222 H Lactic Acid Calcium 7.8 L Phosphorus 4.80 H D Magnesium Total Bilirubin AST ALT Alkaline Phosphatase Total Protein Albumin Triglycerides Arterial Blood Glucose Arterial Blood Ionized Calcium Digoxin Crossmatch 01/03/21 01/03/21 01/03/21 11:29 18:49 23:37 WBC RBC Hgb Hct MCV MCHC RDW Plt Count Lymph % (Auto) [place] % (Auto) Lymph # (Auto) [place] # (Auto) Seg Neutrophils % Seg Neuts % (Manual) Lymphocytes % (Manual) Monocytes % (Manual) Seg Neutrophils # Seg Neutrophils # Man Lymphocytes # (Manual) Monocytes # (Manual) PT INR ABG pH POC ABG pCO2 POC ABG pO2 ABG pO2 ABG HCO3 ABG O2 Saturation ABG Base Excess ABG Hemoglobin ABG Oxyhemoglobin ABG Sodium ABG Potassium ABG Chloride ABG Glucose Oxyhemoglobin Sodium Potassium Chloride Carbon Dioxide BUN Creatinine Glucose POC Glucose 232 H 129 H 140 H Lactic Acid Calcium Phosphorus Magnesium Total Bilirubin AST ALT Alkaline Phosphatase Total Protein Albumin Triglycerides Arterial Blood Glucose Arterial Blood Ionized Calcium Digoxin Crossmatch 01/04/21 01/04/21 01/04/21 03:22 04:38 04:38 WBC 11.1 H RBC 2.89 L Hgb 8.9 L Hct 26.2 L MCV MCHC RDW 16.1 H Plt Count Lymph % (Auto) [place] % (Auto) Lymph # (Auto) [place] # (Auto) Seg Neutrophils % Seg Neuts % (Manual) Lymphocytes % (Manual) Monocytes % (Manual) Seg Neutrophils # Seg Neutrophils # Man Lymphocytes # (Manual) Monocytes # (Manual) PT INR ABG pH POC ABG pCO2 POC ABG pO2 82.3 L ABG pO2 ABG HCO3 ABG O2 Saturation ABG Base Excess ABG Hemoglobin 8.9 L ABG Oxyhemoglobin ABG Sodium 130.5 L ABG Potassium ABG Chloride ABG Glucose 124 H Oxyhemoglobin Sodium Potassium Chloride 95.5 L Carbon Dioxide BUN 87 H Creatinine 9.7 H Glucose 118 H POC Glucose Lactic Acid Calcium 7.7 L Phosphorus Magnesium Total Bilirubin AST ALT Alkaline Phosphatase Total Protein Albumin Triglycerides Arterial Blood Glucose 124 H Arterial Blood Ionized Calcium 3.5 L Digoxin Crossmatch 01/04/21 01/04/21 01/04/21 05:39 12:04 18:04 WBC RBC Hgb Hct MCV MCHC RDW Plt Count Lymph % (Auto) [place] % (Auto) Lymph # (Auto) [place] # (Auto) Seg Neutrophils % Seg Neuts % (Manual) Lymphocytes % (Manual) Monocytes % (Manual) Seg Neutrophils # Seg Neutrophils # Man Lymphocytes # (Manual) Monocytes # (Manual) PT INR ABG pH POC ABG pCO2 POC ABG pO2 ABG pO2 ABG HCO3 ABG O2 Saturation ABG Base Excess ABG Hemoglobin ABG Oxyhemoglobin ABG Sodium ABG Potassium ABG Chloride ABG Glucose Oxyhemoglobin Sodium Potassium Chloride Carbon Dioxide BUN Creatinine Glucose POC Glucose 134 H 125 H 131 H Lactic Acid Calcium Phosphorus Magnesium Total Bilirubin AST ALT Alkaline Phosphatase Total Protein Albumin Triglycerides Arterial Blood Glucose Arterial Blood Ionized Calcium Digoxin Crossmatch 01/04/21 01/05/21 01/05/21 23:41 03:23 04:49 WBC RBC Hgb Hct MCV MCHC RDW Plt Count Lymph % (Auto) [place] % (Auto) Lymph # (Auto) [place] # (Auto) Seg Neutrophils % Seg Neuts % (Manual) Lymphocytes % (Manual) Monocytes % (Manual) Seg Neutrophils # Seg Neutrophils # Man Lymphocytes # (Manual) Monocytes # (Manual) PT INR ABG pH POC ABG pCO2 POC ABG pO2 62.8 L ABG pO2 ABG HCO3 ABG O2 Saturation ABG Base Excess ABG Hemoglobin 9.5 L ABG Oxyhemoglobin 92.0 L ABG Sodium 130.1 L ABG Potassium ABG Chloride ABG Glucose 148 H Oxyhemoglobin Sodium Potassium Chloride 96.9 L Carbon Dioxide BUN 57 H Creatinine 6.7 H Glucose 135 H POC Glucose 132 H Lactic Acid Calcium 8.0 L Phosphorus Magnesium Total Bilirubin AST ALT Alkaline Phosphatase Total Protein Albumin Triglycerides Arterial Blood Glucose 148 H Arterial Blood Ionized Calcium 4.1 L Digoxin Crossmatch 01/05/21 01/05/21 01/05/21 05:04 11:48 12:39 WBC RBC 3.03 L Hgb 9.3 L Hct 27.6 L MCV MCHC RDW 16.5 H Plt Count Lymph % (Auto) [place] % (Auto) Lymph # (Auto) [place] # (Auto) Seg Neutrophils % Seg Neuts % (Manual) Lymphocytes % (Manual) Monocytes % (Manual) Seg Neutrophils # Seg Neutrophils # Man Lymphocytes # (Manual) Monocytes # (Manual) PT INR ABG pH POC ABG pCO2 POC ABG pO2 ABG pO2 ABG HCO3 ABG O2 Saturation ABG Base Excess ABG Hemoglobin ABG Oxyhemoglobin ABG Sodium ABG Potassium ABG Chloride ABG Glucose Oxyhemoglobin Sodium Potassium Chloride Carbon Dioxide BUN Creatinine Glucose POC Glucose 147 H 162 H Lactic Acid Calcium Phosphorus Magnesium Total Bilirubin AST ALT Alkaline Phosphatase Total Protein Albumin Triglycerides Arterial Blood Glucose Arterial Blood Ionized Calcium Digoxin Crossmatch 01/05/21 01/05/21 01/06/21 17:50 23:32 04:15 WBC RBC Hgb Hct MCV MCHC RDW Plt Count Lymph % (Auto) [place] % (Auto) Lymph # (Auto) [place] # (Auto) Seg Neutrophils % Seg Neuts % (Manual) Lymphocytes % (Manual) Monocytes % (Manual) Seg Neutrophils # Seg Neutrophils # Man Lymphocytes # (Manual) Monocytes # (Manual) PT INR ABG pH POC ABG pCO2 POC ABG pO2 ABG pO2 191.0 H ABG HCO3 ABG O2 Saturation 99.2 H ABG Base Excess ABG Hemoglobin 9.0 L ABG Oxyhemoglobin ABG Sodium ABG Potassium ABG Chloride ABG Glucose Oxyhemoglobin Sodium Potassium Chloride Carbon Dioxide BUN Creatinine Glucose POC Glucose 155 H 115 H Lactic Acid Calcium Phosphorus Magnesium Total Bilirubin AST ALT Alkaline Phosphatase Total Protein Albumin Triglycerides Arterial Blood Glucose Arterial Blood Ionized Calcium Digoxin Crossmatch 01/06/21 01/06/21 01/06/21 04:45 05:56 07:03 WBC RBC 2.95 L Hgb 9.1 L Hct 26.8 L MCV MCHC RDW 16.8 H Plt Count Lymph % (Auto) [place] % (Auto) Lymph # (Auto) [place] # (Auto) Seg Neutrophils % Seg Neuts % (Manual) Lymphocytes % (Manual) Monocytes % (Manual) Seg Neutrophils # Seg Neutrophils # Man Lymphocytes # (Manual) Monocytes # (Manual) PT INR ABG pH POC ABG pCO2 POC ABG pO2 ABG pO2 ABG HCO3 ABG O2 Saturation ABG Base Excess ABG Hemoglobin ABG Oxyhemoglobin ABG Sodium ABG Potassium ABG Chloride ABG Glucose Oxyhemoglobin Sodium 135 L Potassium Chloride 95.9 L Carbon Dioxide BUN 82 H Creatinine 8.7 H Glucose 127 H POC Glucose 136 H Lactic Acid Calcium 8.3 L Phosphorus Magnesium Total Bilirubin AST ALT Alkaline Phosphatase Total Protein Albumin Triglycerides Arterial Blood Glucose Arterial Blood Ionized Calcium Digoxin Crossmatch 01/06/21 01/06/21 01/06/21 07:10 11:04 13:38 WBC RBC Hgb Hct MCV MCHC RDW Plt Count Lymph % (Auto) [place] % (Auto) Lymph # (Auto) [place] # (Auto) Seg Neutrophils % Seg Neuts % (Manual) Lymphocytes % (Manual) Monocytes % (Manual) Seg Neutrophils # Seg Neutrophils # Man Lymphocytes # (Manual) Monocytes # (Manual) PT INR ABG pH POC ABG pCO2 POC ABG pO2 ABG pO2 ABG HCO3 ABG O2 Saturation ABG Base Excess ABG Hemoglobin ABG Oxyhemoglobin ABG Sodium ABG Potassium ABG Chloride ABG Glucose Oxyhemoglobin Sodium Potassium Chloride Carbon Dioxide BUN Creatinine Glucose POC Glucose 178 H 155 H Lactic Acid Calcium Phosphorus Magnesium Total Bilirubin AST ALT Alkaline Phosphatase Total Protein Albumin Triglycerides Arterial Blood Glucose Arterial Blood Ionized Calcium Digoxin Crossmatch See Detail 01/06/21 01/06/21 01/07/21 17:35 22:21 03:07 WBC RBC Hgb Hct MCV MCHC RDW Plt Count Lymph % (Auto) [place] % (Auto) Lymph # (Auto) [place] # (Auto) Seg Neutrophils % Seg Neuts % (Manual) Lymphocytes % (Manual) Monocytes % (Manual) Seg Neutrophils # Seg Neutrophils # Man Lymphocytes # (Manual) Monocytes # (Manual) PT INR ABG pH POC ABG pCO2 POC ABG pO2 ABG pO2 ABG HCO3 ABG O2 Saturation ABG Base Excess ABG Hemoglobin 11.9 L ABG Oxyhemoglobin ABG Sodium 135.6 L ABG Potassium ABG Chloride ABG Glucose 181 H Oxyhemoglobin Sodium Potassium Chloride Carbon Dioxide BUN Creatinine Glucose POC Glucose 138 H 202 H Lactic Acid Calcium Phosphorus Magnesium Total Bilirubin AST ALT Alkaline Phosphatase Total Protein Albumin Triglycerides Arterial Blood Glucose 181 H Arterial Blood Ionized Calcium 4.3 L Digoxin Crossmatch 01/07/21 01/07/21 01/07/21 04:50 05:21 08:37 WBC 12.4 H RBC Hgb 11.1 L Hct 33.3 L D MCV MCHC RDW 17.0 H Plt Count Lymph % (Auto) 3.2 L [place] % (Auto) 9.4 H Lymph # (Auto) 0.4 L [place] # (Auto) 1.2 H Seg Neutrophils % 86.6 H Seg Neuts % (Manual) Lymphocytes % (Manual) Monocytes % (Manual) Seg Neutrophils # 10.7 H Seg Neutrophils # Man Lymphocytes # (Manual) Monocytes # (Manual) PT INR ABG pH POC ABG pCO2 POC ABG pO2 ABG pO2 ABG HCO3 ABG O2 Saturation ABG Base Excess ABG Hemoglobin ABG Oxyhemoglobin ABG Sodium ABG Potassium ABG Chloride ABG Glucose Oxyhemoglobin Sodium Potassium Chloride Carbon Dioxide BUN 60 H Creatinine 6.3 H Glucose 154 H POC Glucose 177 H Lactic Acid Calcium 8.3 L Phosphorus Magnesium Total Bilirubin AST ALT Alkaline Phosphatase Total Protein Albumin Triglycerides Arterial Blood Glucose Arterial Blood Ionized Calcium Digoxin Crossmatch 01/07/21 01/07/21 01/07/21 11:21 12:19 17:11 WBC RBC Hgb Hct MCV MCHC RDW Plt Count Lymph % (Auto) [place] % (Auto) Lymph # (Auto) [place] # (Auto) Seg Neutrophils % Seg Neuts % (Manual) Lymphocytes % (Manual) Monocytes % (Manual) Seg Neutrophils # Seg Neutrophils # Man Lymphocytes # (Manual) Monocytes # (Manual) PT INR ABG pH POC ABG pCO2 POC ABG pO2 ABG pO2 ABG HCO3 ABG O2 Saturation ABG Base Excess ABG Hemoglobin ABG Oxyhemoglobin ABG Sodium ABG Potassium ABG Chloride ABG Glucose Oxyhemoglobin Sodium Potassium Chloride Carbon Dioxide BUN Creatinine Glucose POC Glucose 144 H 137 H 119 H Lactic Acid Calcium Phosphorus Magnesium Total Bilirubin AST ALT Alkaline Phosphatase Total Protein Albumin Triglycerides Arterial Blood Glucose Arterial Blood Ionized Calcium Digoxin Crossmatch 01/07/21 01/07/21 01/08/21 17:14 23:39 04:34 WBC RBC Hgb Hct MCV MCHC RDW Plt Count Lymph % (Auto) [place] % (Auto) Lymph # (Auto) [place] # (Auto) Seg Neutrophils % Seg Neuts % (Manual) Lymphocytes % (Manual) Monocytes % (Manual) Seg Neutrophils # Seg Neutrophils # Man Lymphocytes # (Manual) Monocytes # (Manual) PT INR ABG pH 7.345 L POC ABG pCO2 POC ABG pO2 ABG pO2 67.4 L ABG HCO3 ABG O2 Saturation 94.3 L ABG Base Excess -3.9 L ABG Hemoglobin 8.9 L ABG Oxyhemoglobin ABG Sodium ABG Potassium ABG Chloride ABG Glucose Oxyhemoglobin 92.3 L Sodium Potassium Chloride Carbon Dioxide 20 L BUN 93 H Creatinine 8.8 H Glucose 120 H POC Glucose 129 H Lactic Acid Calcium Phosphorus Magnesium Total Bilirubin AST ALT Alkaline Phosphatase 133 H Total Protein 5.4 L Albumin 1.9 L Triglycerides Arterial Blood Glucose Arterial Blood Ionized Calcium Digoxin Crossmatch 01/08/21 01/08/21 01/08/21 05:26 11:38 17:19 WBC RBC Hgb Hct MCV MCHC RDW Plt Count Lymph % (Auto) [place] % (Auto) Lymph # (Auto) [place] # (Auto) Seg Neutrophils % Seg Neuts % (Manual) Lymphocytes % (Manual) Monocytes % (Manual) Seg Neutrophils # Seg Neutrophils # Man Lymphocytes # (Manual) Monocytes # (Manual) PT INR ABG pH POC ABG pCO2 POC ABG pO2 ABG pO2 ABG HCO3 ABG O2 Saturation ABG Base Excess ABG Hemoglobin ABG Oxyhemoglobin ABG Sodium ABG Potassium ABG Chloride ABG Glucose Oxyhemoglobin Sodium Potassium Chloride Carbon Dioxide BUN Creatinine Glucose POC Glucose 125 H 146 H 136 H Lactic Acid Calcium Phosphorus Magnesium Total Bilirubin AST ALT Alkaline Phosphatase Total Protein Albumin Triglycerides Arterial Blood Glucose Arterial Blood Ionized Calcium Digoxin Crossmatch 01/08/21 01/09/21 01/09/21 23:52 05:13 05:21 WBC RBC Hgb Hct MCV MCHC RDW Plt Count Lymph % (Auto) [place] % (Auto) Lymph # (Auto) [place] # (Auto) Seg Neutrophils % Seg Neuts % (Manual) Lymphocytes % (Manual) Monocytes % (Manual) Seg Neutrophils # Seg Neutrophils # Man Lymphocytes # (Manual) Monocytes # (Manual) PT INR ABG pH POC ABG pCO2 POC ABG pO2 ABG pO2 ABG HCO3 ABG O2 Saturation ABG Base Excess ABG Hemoglobin ABG Oxyhemoglobin ABG Sodium ABG Potassium ABG Chloride ABG Glucose Oxyhemoglobin Sodium Potassium Chloride Carbon Dioxide 16 L BUN 123 H Creatinine 10.8 H Glucose 145 H POC Glucose 143 H 144 H Lactic Acid Calcium Phosphorus 5.00 H D Magnesium 2.40 H Total Bilirubin AST ALT Alkaline Phosphatase Total Protein Albumin Triglycerides Arterial Blood Glucose Arterial Blood Ionized Calcium Digoxin Crossmatch 01/09/21 01/09/21 01/09/21 12:08 17:20 23:56 WBC RBC Hgb Hct MCV MCHC RDW Plt Count Lymph % (Auto) [place] % (Auto) Lymph # (Auto) [place] # (Auto) Seg Neutrophils % Seg Neuts % (Manual) Lymphocytes % (Manual) Monocytes % (Manual) Seg Neutrophils # Seg Neutrophils # Man Lymphocytes # (Manual) Monocytes # (Manual) PT INR ABG pH POC ABG pCO2 POC ABG pO2 ABG pO2 ABG HCO3 ABG O2 Saturation ABG Base Excess ABG Hemoglobin ABG Oxyhemoglobin ABG Sodium ABG Potassium ABG Chloride ABG Glucose Oxyhemoglobin Sodium Potassium Chloride Carbon Dioxide BUN Creatinine Glucose POC Glucose 153 H 160 H 158 H Lactic Acid Calcium Phosphorus Magnesium Total Bilirubin AST ALT Alkaline Phosphatase Total Protein Albumin Triglycerides Arterial Blood Glucose Arterial Blood Ionized Calcium Digoxin Crossmatch 01/10/21 01/10/21 01/10/21 04:52 05:44 07:41 WBC RBC Hgb Hct MCV MCHC RDW Plt Count Lymph % (Auto) [place] % (Auto) Lymph # (Auto) [place] # (Auto) Seg Neutrophils % Seg Neuts % (Manual) Lymphocytes % (Manual) Monocytes % (Manual) Seg Neutrophils # Seg Neutrophils # Man Lymphocytes # (Manual) Monocytes # (Manual) PT INR ABG pH POC ABG pCO2 POC ABG pO2 ABG pO2 ABG HCO3 ABG O2 Saturation ABG Base Excess ABG Hemoglobin ABG Oxyhemoglobin ABG Sodium ABG Potassium ABG Chloride ABG Glucose Oxyhemoglobin Sodium 135 L Potassium 3.5 L D Chloride 95.0 L Carbon Dioxide 21 L BUN 93 H Creatinine 8.3 H Glucose 127 H POC Glucose 135 H 157 H Lactic Acid Calcium Phosphorus Magnesium Total Bilirubin AST ALT Alkaline Phosphatase Total Protein Albumin Triglycerides Arterial Blood Glucose Arterial Blood Ionized Calcium Digoxin Crossmatch 01/10/21 01/10/21 01/10/21 09:26 12:03 17:44 WBC 18.2 H RBC 3.14 L Hgb 9.7 L Hct 28.2 L MCV MCHC RDW 16.5 H Plt Count Lymph % (Auto) [place] % (Auto) Lymph # (Auto) [place] # (Auto) Seg Neutrophils % Seg Neuts % (Manual) 95.0 H Lymphocytes % (Manual) 3.0 L Monocytes % (Manual) Seg Neutrophils # Seg Neutrophils # Man 17.3 H Lymphocytes # (Manual) 0.5 L Monocytes # (Manual) PT INR ABG pH POC ABG pCO2 POC ABG pO2 ABG pO2 ABG HCO3 ABG O2 Saturation ABG Base Excess ABG Hemoglobin ABG Oxyhemoglobin ABG Sodium ABG Potassium ABG Chloride ABG Glucose Oxyhemoglobin Sodium Potassium Chloride Carbon Dioxide BUN Creatinine Glucose POC Glucose 163 H 171 H Lactic Acid Calcium Phosphorus Magnesium Total Bilirubin AST ALT Alkaline Phosphatase Total Protein Albumin Triglycerides Arterial Blood Glucose Arterial Blood Ionized Calcium Digoxin Crossmatch 01/10/21 01/11/21 01/11/21 23:50 05:18 05:18 WBC RBC Hgb Hct MCV MCHC RDW Plt Count Lymph % (Auto) [place] % (Auto) Lymph # (Auto) [place] # (Auto) Seg Neutrophils % Seg Neuts % (Manual) Lymphocytes % (Manual) Monocytes % (Manual) Seg Neutrophils # Seg Neutrophils # Man Lymphocytes # (Manual) Monocytes # (Manual) PT INR ABG pH POC ABG pCO2 POC ABG pO2 ABG pO2 ABG HCO3 ABG O2 Saturation ABG Base Excess ABG Hemoglobin ABG Oxyhemoglobin ABG Sodium ABG Potassium ABG Chloride ABG Glucose Oxyhemoglobin Sodium 136 L Potassium Chloride 94.6 L Carbon Dioxide 19 L BUN 145 H Creatinine 10.6 H Glucose 152 H POC Glucose 151 H Lactic Acid Calcium Phosphorus 6.00 H D Magnesium Total Bilirubin AST ALT Alkaline Phosphatase Total Protein Albumin Triglycerides Arterial Blood Glucose Arterial Blood Ionized Calcium Digoxin 0.8 L Crossmatch 01/11/21 01/11/21 01/11/21 05:18 05:19 11:28 WBC 17.4 H RBC 3.34 L Hgb 10.2 L Hct 29.7 L MCV MCHC RDW 15.9 H Plt Count Lymph % (Auto) [place] % (Auto) Lymph # (Auto) [place] # (Auto) Seg Neutrophils % Seg Neuts % (Manual) Lymphocytes % (Manual) Monocytes % (Manual) Seg Neutrophils # Seg Neutrophils # Man Lymphocytes # (Manual) Monocytes # (Manual) PT INR ABG pH POC ABG pCO2 POC ABG pO2 ABG pO2 ABG HCO3 ABG O2 Saturation ABG Base Excess ABG Hemoglobin ABG Oxyhemoglobin ABG Sodium ABG Potassium ABG Chloride ABG Glucose Oxyhemoglobin Sodium Potassium Chloride Carbon Dioxide BUN Creatinine Glucose POC Glucose 149 H 178 H Lactic Acid Calcium Phosphorus Magnesium Total Bilirubin AST ALT Alkaline Phosphatase Total Protein Albumin Triglycerides Arterial Blood Glucose Arterial Blood Ionized Calcium Digoxin Crossmatch 01/11/21 01/11/21 01/12/21 17:31 23:14 05:18 WBC RBC Hgb Hct MCV MCHC RDW Plt Count Lymph % (Auto) [place] % (Auto) Lymph # (Auto) [place] # (Auto) Seg Neutrophils % Seg Neuts % (Manual) Lymphocytes % (Manual) Monocytes % (Manual) Seg Neutrophils # Seg Neutrophils # Man Lymphocytes # (Manual) Monocytes # (Manual) PT INR ABG pH POC ABG pCO2 POC ABG pO2 ABG pO2 ABG HCO3 ABG O2 Saturation ABG Base Excess ABG Hemoglobin ABG Oxyhemoglobin ABG Sodium ABG Potassium ABG Chloride ABG Glucose Oxyhemoglobin Sodium Potassium Chloride Carbon Dioxide BUN Creatinine Glucose POC Glucose 158 H 145 H 148 H Lactic Acid Calcium Phosphorus Magnesium Total Bilirubin AST ALT Alkaline Phosphatase Total Protein Albumin Triglycerides Arterial Blood Glucose Arterial Blood Ionized Calcium Digoxin Crossmatch 01/12/21 01/12/21 01/12/21 06:50 10:45 13:34 WBC RBC Hgb Hct MCV MCHC RDW Plt Count Lymph % (Auto) [place] % (Auto) Lymph # (Auto) [place] # (Auto) Seg Neutrophils % Seg Neuts % (Manual) Lymphocytes % (Manual) Monocytes % (Manual) Seg Neutrophils # Seg Neutrophils # Man Lymphocytes # (Manual) Monocytes # (Manual) PT INR ABG pH POC ABG pCO2 POC ABG pO2 ABG pO2 ABG HCO3 ABG O2 Saturation ABG Base Excess ABG Hemoglobin ABG Oxyhemoglobin ABG Sodium ABG Potassium ABG Chloride ABG Glucose Oxyhemoglobin Sodium Potassium 2.9 L* D Chloride 94.8 L Carbon Dioxide BUN 102 H Creatinine 8.3 H Glucose 139 H POC Glucose 151 H 134 H Lactic Acid Calcium 8.1 L Phosphorus 5.00 H Magnesium Total Bilirubin AST ALT Alkaline Phosphatase Total Protein Albumin Triglycerides Arterial Blood Glucose Arterial Blood Ionized Calcium Digoxin Crossmatch 01/12/21 01/12/21 01/13/21 16:59 23:06 03:45 WBC RBC Hgb Hct MCV MCHC RDW Plt Count Lymph % (Auto) [place] % (Auto) Lymph # (Auto) [place] # (Auto) Seg Neutrophils % Seg Neuts % (Manual) Lymphocytes % (Manual) Monocytes % (Manual) Seg Neutrophils # Seg Neutrophils # Man Lymphocytes # (Manual) Monocytes # (Manual) PT INR ABG pH POC ABG pCO2 POC ABG pO2 ABG pO2 ABG HCO3 ABG O2 Saturation ABG Base Excess ABG Hemoglobin ABG Oxyhemoglobin ABG Sodium ABG Potassium ABG Chloride ABG Glucose Oxyhemoglobin Sodium 136 L Potassium 3.4 L Chloride 92.6 L Carbon Dioxide BUN 134 H Creatinine 10.4 H Glucose 126 H POC Glucose 108 H 135 H Lactic Acid Calcium 8.3 L Phosphorus 5.60 H Magnesium 1.50 L Total Bilirubin AST ALT Alkaline Phosphatase Total Protein Albumin Triglycerides Arterial Blood Glucose Arterial Blood Ionized Calcium Digoxin Crossmatch 01/13/21 01/13/21 01/13/21 03:45 05:55 11:59 WBC 17.6 H RBC 3.33 L Hgb 10.2 L Hct 29.5 L MCV MCHC 35 H RDW 15.5 H Plt Count Lymph % (Auto) 4.4 L [place] % (Auto) 10.3 H Lymph # (Auto) 0.8 L [place] # (Auto) 1.8 H Seg Neutrophils % 84.2 H Seg Neuts % (Manual) Lymphocytes % (Manual) Monocytes % (Manual) Seg Neutrophils # 14.8 H Seg Neutrophils # Man Lymphocytes # (Manual) Monocytes # (Manual) PT INR ABG pH POC ABG pCO2 POC ABG pO2 ABG pO2 ABG HCO3 ABG O2 Saturation ABG Base Excess ABG Hemoglobin ABG Oxyhemoglobin ABG Sodium ABG Potassium ABG Chloride ABG Glucose Oxyhemoglobin Sodium Potassium Chloride Carbon Dioxide BUN Creatinine Glucose POC Glucose 134 H 141 H Lactic Acid Calcium Phosphorus Magnesium Total Bilirubin AST ALT Alkaline Phosphatase Total Protein Albumin Triglycerides Arterial Blood Glucose Arterial Blood Ionized Calcium Digoxin Crossmatch Allied health notes reviewed: nursing
--- NOTE | 2021-01-13 17:20 | Progress Note ---
Assessment and Plan - Patient Problems (1) Atrial fibrillation Current Visit: Yes Status: Acute Plan to address problem: Continue medical therapy as previously outlined for paroxysmal atrial fibrillation. Subjective Date of service: 01/13/21 Principal diagnosis: Ac hypoxemic resp failure; Severe Sepsis; Peritonitis; Acute SBO; ESRD; CHF Interval history: No new cardiac complaints, patient in a stable sinus rhythm. Objective Vital Signs Temp Pulse Pulse Resp BP Pulse Ox 01/13/21 16:00 82 72 12 153/71 98 01/13/21 15:00 84 14 120/59 96 01/13/21 14:00 83 15 145/66 97 01/13/21 13:06 99.1 F 79 18 143/74 01/13/21 13:02 90 138/69 01/13/21 13:00 96 H 14 138/69 98 01/13/21 12:45 88 133/78 01/13/21 12:30 69 148/73 01/13/21 12:15 62 148/68 01/13/21 12:00 99.1 F 88 72 18 138/75 98 01/13/21 11:45 85 139/64 01/13/21 11:30 87 136/67 01/13/21 11:15 86 145/66 01/13/21 11:00 83 16 143/60 01/13/21 10:45 86 148/64 01/13/21 10:30 87 141/70 01/13/21 10:15 86 142/65 01/13/21 10:00 85 17 159/69 01/13/21 09:45 84 159/67 01/13/21 09:30 82 165/70 01/13/21 09:25 98.5 F 75 17 161/68 01/13/21 09:00 76 14 160/73 97 01/13/21 08:00 81 72 18 158/68 99 01/13/21 07:53 99 01/13/21 07:28 98.4 F 01/13/21 07:00 77 19 161/64 97 01/13/21 06:12 78 164/72 01/13/21 06:00 77 18 164/72 98 01/13/21 05:00 89 21 167/75 98 01/13/21 04:00 97.6 F 72 72 16 161/75 97 01/13/21 03:00 72 17 164/68 97 05/21/21 02:00 69 16 155/68 98 01/13/21 01:39 75 167/72 01/13/21 01:38 75 167/72 01/13/21 01:00 69 14 167/72 99 01/13/21 00:00 97.6 F 71 73 20 163/72 98 01/12/21 23:00 72 14 172/76 98 01/12/21 22:00 71 17 169/76 98 01/12/21 21:28 67 160/72 01/12/21 21:23 66 160/72 01/12/21 21:12 97 01/12/21 21:00 73 17 159/72 01/12/21 20:20 70 13 159/72 98 01/12/21 20:01 66 18 159/72 98 01/12/21 20:00 98.4 F 69 69 19 100 01/12/21 19:01 72 15 148/71 96 01/12/21 18:01 67 16 159/72 95 - Physical Examination General: No Apparent Distress HEENT: Positive: PERRL Neck: Positive: neck supple Cardiac: Positive: Reg Rate and Rhythm Lungs: Positive: Decreased Breath Sounds Neuro: Positive: Weakness (Sedated, on the vent) Abdomen: Positive: Other (post op) Skin: Positive: Clear Extremities: Present: normal. Absent: edema - Labs and Meds CBC 01/13/21 Range/Units 03:45 WBC 17.6 H (4.5-11.0) K/mm3 RBC 3.33 L (3.65-5.03) M/mm3 Hgb 10.2 L (11.8-15.2) gm/dl Hct 29.5 L (35.5-45.6) % Plt Count 377 (140-440) K/mm3 Lymph # (Auto) 0.8 L (1.2-5.4) K/mm3 [place] # (Auto) 1.8 H (0.0-0.8) K/mm3 Eos # (Auto) 0.2 (0.0-0.4) K/mm3 Baso # (Auto) 0.0 (0.0-0.1) K/mm3 Comprehensive Metabolic Panel 01/13/21 Range/Units 03:45 Sodium 136 L (137-145) mmol/L Potassium 3.4 L (3.6-5.0) mmol/L Chloride 92.6 L (98-107) mmol/L Carbon Dioxide 22 (22-30) mmol/L BUN 134 H (9-20) mg/dL Creatinine 10.4 H (0.8-1.3) mg/dL Glucose 126 H (75-100) mg/dL Calcium 8.3 L (8.4-10.2) mg/dL - Allied health notes Allied health notes reviewed: nursing
[2021-01-13] MEDS ORDERED: FAT EMULSIONS 20% 250 ML IV SCH (20:00)
[2021-01-13] MEDS ORDERED: TOTAL PARENTERAL NUTRITION 2,016 ML IV SCH (20:00)
[2021-01-13] MEDS: GLYCOPYRROLATE 0.4 MG/2 ML INJ IV SCH (22:28)
[2021-01-14] MEDS: PIPERACIL-TAZO 2.25 GM/50 ML 2.25 GM/50 ML BAG IV SCH ×4 (00:10→19:44)
[2021-01-14] MEDS: INSULIN LISPRO 100 UNIT/ML SUB-Q SCH ×6 (01:21→23:36)
[2021-01-14] MEDS: hydrALAZINE 20 MG/1 ML INJ IV SCH ×7 (02:35→23:16)
[2021-01-14] MEDS: METOPROLOL TARTRATE 5 MG/5 ML INJ IV SCH ×7 (02:37→21:57)
[2021-01-14] MEDS: OCTREOTIDE 500 MCG in SODIUM CHLORIDE 0.9% 100 ML IV SCH (05:13)
[2021-01-14] MEDS: GLYCOPYRROLATE 0.4 MG/2 ML INJ IV SCH ×6 (05:15→23:28)
[2021-01-14 06:27] LABS: Calcium 8.2 mg/dL (8.4-10.2)
[2021-01-14] MEDS: INSULIN GLARGINE 100 UNITS/ML SUB-Q SCH (10:12)
[2021-01-14] MEDS: FAMOTIDINE 20 MG/2 ML INJ IV SCH ×2 (10:13→21:57)
[2021-01-14] MEDS: HEPARIN 5,000 UNIT/1 ML VIAL SUB-Q SCH ×2 (10:15→21:57)
[2021-01-14 10:41] LABS: Hematocrit 27.4 % (35.5-45.6); Hemoglobin 9.6 gm/dl (11.8-15.2); Mean Corpuscular HGB Conc 35 % (32-34); Mean Corpuscular Volume 89 fl (84-94); Platelet Count 331 K/mm3 (140-440); Red Cell Distribution Width 15.6 % (13.2-15.2)
--- NOTE | 2021-01-14 11:54 | Progress Note ---
Assessment and Plan - Patient Problems (1) Small intestinal gangrene Current Visit: Yes Status: Acute Plan to address problem: 1) Continue Octreotide 2) Continue TPN 3) Continue gastric decompression (2) Small intestinal gangrene Current Visit: Yes Status: Acute Subjective Date of service: 01/14/21 Patient Reports: Positive: no new complaints Objective Vital Signs - 12hr 01/14/21 01/14/21 01/14/21 00:00 01:00 02:00 Temperature 98.4 F Pulse Rate 82 74 74 Pulse Rate [ 80 From Monitor] Respiratory 14 13 15 Rate Blood Pressure 177/79 145/68 147/64 O2 Sat by Pulse 95 96 97 Oximetry 01/14/21 01/14/21 01/14/21 02:35 02:37 03:00 Temperature Pulse Rate 77 77 75 Pulse Rate [ From Monitor] Respiratory 16 Rate Blood Pressure 144/68 144/68 138/60 O2 Sat by Pulse 97 Oximetry 01/14/21 01/14/21 01/14/21 04:00 05:00 05:08 Temperature 98.8 F Pulse Rate 72 76 77 Pulse Rate [ 71 From Monitor] Respiratory 12 15 Rate Blood Pressure 150/69 174/69 174/69 O2 Sat by Pulse 99 100 Oximetry 01/14/21 01/14/21 01/14/21 05:09 06:00 07:55 Temperature Pulse Rate 77 90 Pulse Rate [ From Monitor] Respiratory 16 Rate Blood Pressure 174/69 143/69 O2 Sat by Pulse 97 98 Oximetry 01/14/21 01/14/21 11:17 11:18 Temperature Pulse Rate 89 86 Pulse Rate [ From Monitor] Respiratory Rate Blood Pressure 172/85 172/85 O2 Sat by Pulse Oximetry - Abdomen soft, bowel sounds hypoactive (Abdomen seems minimally tender to deep palpation. No rebound or guarding.), other (Cloudy, bilious drainage from HARIS.) - Labs 01/14/21 10:00 01/14/21 05:39 Diabetes panel 01/13/21 01/14/21 Range/Units 20:22 05:39 Sodium 137 (137-145) mmol/L Potassium 4.4 D 3.8 (3.6-5.0) mmol/L Chloride 97.6 L (98-107) mmol/L Carbon Dioxide 24 (22-30) mmol/L BUN 81 H (9-20) mg/dL Creatinine 7.6 H (0.8-1.3) mg/dL Glucose 193 H (75-100) mg/dL Calcium 8.2 L (8.4-10.2) mg/dL Calcium panel 01/14/21 Range/Units 05:39 Calcium 8.2 L (8.4-10.2) mg/dL Phosphorus 4.60 H (2.5-4.5) mg/dL Pituitary panel 01/13/21 01/14/21 Range/Units 20:22 05:39 Sodium 137 (137-145) mmol/L Potassium 4.4 D 3.8 (3.6-5.0) mmol/L Chloride 97.6 L (98-107) mmol/L Carbon Dioxide 24 (22-30) mmol/L BUN 81 H (9-20) mg/dL Creatinine 7.6 H (0.8-1.3) mg/dL Glucose 193 H (75-100) mg/dL Calcium 8.2 L (8.4-10.2) mg/dL Adrenal panel 01/13/21 01/14/21 Range/Units 20:22 05:39 Sodium 137 (137-145) mmol/L Potassium 4.4 D 3.8 (3.6-5.0) mmol/L Chloride 97.6 L (98-107) mmol/L Carbon Dioxide 24 (22-30) mmol/L BUN 81 H (9-20) mg/dL Creatinine 7.6 H (0.8-1.3) mg/dL Glucose 193 H (75-100) mg/dL Calcium 8.2 L (8.4-10.2) mg/dL
--- NOTE | 2021-01-14 12:50 | Progress Note ---
Assessment and Plan Assessment: * ESRD previouaslyon peritoneal dialysis; now on back up HD (on peritoneal dialysis for 2 years with no history of peritonitis) * Small bowel obstruction --s/p ex-lap with jejuno-ileal anastamosis --s/p ex lap with extensive lysis of adhesions and two small bowel resections with primary anastamosis for SBO with necrotic segment small bowel. --s/p ex lap, resection of perforated anastamosis, washout and abthera wound vac placement. --s/p ex lap with right hemicolectomy. * Acute respiratory failure * Septic shock - resolved * Bacteremia - resolved * Hyperkalemia * Anemia of ESRD * Atrial fibrilation, new onset * Post op ileus Plan: * Continue HD MWF via left IJ permcath (12/27) * 4K bath with dialysis * UF as tolerated * Start Epogen 10k units w/ dialysis * Rate control per cardiology * Abx per primary team/ID * Nutrition per primary team * Maintatin MAP >65 * AM labs * Note recommendation for CT with contrast. HD should not delay care/diagnosis - do not hold CT for HD coordination if study is needed. Subjective Date of service: 01/14/21 Principal diagnosis: Ac hypoxemic resp failure; Severe Sepsis; Peritonitis; Acute SBO; ESRD; CHF Interval history: Patient has no complaints. Objective - Vital Signs Vital signs: Vital Signs - 12hr 01/14/21 01/14/21 01/14/21 01:00 02:00 02:35 Temperature Pulse Rate 74 74 77 Pulse Rate [ From Monitor] Respiratory 13 15 Rate Blood Pressure 145/68 147/64 144/68 O2 Sat by Pulse 96 97 Oximetry 01/14/21 01/14/21 01/14/21 02:37 03:00 04:00 Temperature 98.8 F Pulse Rate 77 75 72 Pulse Rate [ 71 From Monitor] Respiratory 16 12 Rate Blood Pressure 144/68 138/60 150/69 O2 Sat by Pulse 97 99 Oximetry 01/14/21 01/14/21 01/14/21 05:00 05:08 05:09 Temperature Pulse Rate 76 77 77 Pulse Rate [ From Monitor] Respiratory 15 Rate Blood Pressure 174/69 174/69 174/69 O2 Sat by Pulse 100 Oximetry 01/14/21 01/14/21 01/14/21 06:00 07:55 11:17 Temperature Pulse Rate 90 89 Pulse Rate [ From Monitor] Respiratory 16 Rate Blood Pressure 143/69 172/85 O2 Sat by Pulse 97 98 Oximetry 01/14/21 11:18 Temperature Pulse Rate 86 Pulse Rate [ From Monitor] Respiratory Rate Blood Pressure 172/85 O2 Sat by Pulse Oximetry - Lab 01/14/21 10:00 01/14/21 05:39 Most recent lab results ABG pH 7.345 pH Units (7.350-7.450) L 01/07/21 17:14 ABG pCO2 40.3 mm Hg 01/07/21 17:14 ABG pO2 67.4 mm Hg (80.0-90.0) L 01/07/21 17:14 ABG HCO3 21.5 mmol/L (20.0-26.0) 01/07/21 17:14 ABG O2 Saturation 94.3 % (95.0-99.0) L 01/07/21 17:14 Calcium 8.2 mg/dL (8.4-10.2) L 01/14/21 05:39 Phosphorus 4.60 mg/dL (2.5-4.5) H 01/14/21 05:39 Magnesium 2.20 mg/dL (1.7-2.3) 01/14/21 05:39 Medications & Allergies - Medications Allergies/Adverse Reactions: Allergies No Known Allergies Allergy (Verified 06/09/20 15:27) Home Medications: Home Medications Medication Instructions Recorded Confirmed Last Taken Type Albuterol Mdi (or & Nicu Only) 2 puff IH QID PRN #1 inhalation 04/01/17 11/01/20 10/31/20 09:00 Rx [ProAir HFA Inhaler] Calcium Acetate 667 mg PO DAILY 04/20/20 11/01/20 10/31/20 09:00 History Centrum Men's Tablet 1 tab PO DAILY 04/20/20 11/01/20 10/31/20 09:00 History Cinacalcet 30 mg PO DAILY 04/20/20 11/01/20 10/31/20 09:00 History Dialyvite with Zinc Tablet 1 tab PO DAILY 04/20/20 11/01/20 10/31/20 09:00 History Magnesium 250 mg PO BID 04/20/20 11/01/20 10/31/20 17:00 History Triamcinolone 0.1% 1 1000units TRANSDERMA DAILY 04/20/20 11/01/20 10/31/20 09:00 History Vit B12/Folic Acid/B6/Aa No.15 1,000 mg PO DAILY 04/20/20 11/01/20 10/31/20 09:00 History amLODIPine 10 mg PO DAILY 06/09/20 11/01/20 10/31/20 09:00 History AtorvaSTATin 40 mg PO HS 11/01/20 11/01/20 10/31/20 21:00 History Benadryl 25 mg PO HS 11/01/20 11/01/20 10/31/20 21:00 History Diclofenac 1 TRANSDERMA QID 11/01/20 10/31/20 19:00 History Fluticasone Propionate 1 spray INTRANASAL DAILY 11/01/20 11/01/20 10/31/20 09:00 History Vitamin D3 2,000 units 11/01/20 10/31/20 09:00 History carvediloL 12.5 mg PO DAILY 11/01/20 11/01/20 10/31/20 09:00 History hydrALAZINE 100 mg PO TID 11/01/20 11/01/20 10/31/20 19:00 History Active Medications: Generic Name Dose Route Start Last Admin Trade Name Freq PRN Reason Stop Dose Admin Acetaminophen 650 mg 12/31/20 15:30 12/31/20 15:13 Acetaminophen 650 Mg Rect Supp [place] 650 mg Q6H PRN Administration Non Cardiac Pain or Temp>100.5 Clonidine HCl 0.2 mg 01/11/21 10:00 01/11/21 09:24 Clonidine Tts 0.2 Mg/24 Hr Patch TD 0.2 mg We THOMAS Administration Digoxin 0.125 mg 01/09/21 12:00 01/13/21 12:34 Digoxin 0.5 Mg/2 Ml Inj IV 0.125 mg Q48H THOMAS Administration Famotidine 10 mg 12/24/20 13:00 01/14/21 10:13 Famotidine 20 Mg/2 Ml Inj IV 10 mg BID THOMAS Administration Glycopyrrolate 0.2 mg 01/13/21 15:00 01/14/21 05:15 Glycopyrrolate 0.4 Mg/2 Ml Inj IV 01/16/21 14:59 0.2 mg Q6H THOMAS Administration Haloperidol Lactate 5 mg 12/29/20 14:16 01/09/21 01:41 Haloperidol Lactate 5 Mg/1 Ml Inj IV 5 mg Q12H PRN Administration Agitation Heparin Sodium (Porcine) 5,000 unit 12/24/20 10:00 01/14/21 10:15 Heparin 5,000 Unit/1 Ml Vial SUB-Q 5,000 unit Q12HR THOMAS Administration Hydralazine HCl 10 mg 01/10/21 14:00 01/14/21 11:17 Hydralazine 20 Mg/1 Ml Inj IV 10 mg Q4HR THOMAS Administration Hydromorphone HCl 0.25 mg 01/09/21 10:53 01/13/21 21:45 Hydromorphone 1 Mg/1 Ml Inj IV 0.25 mg Q6H PRN Administration Pain , Severe (7-10) Hydrophilic Ointment 1 applic 12/31/20 06:39 01/11/21 21:28 Lip Therapy Vaseline TP 1 applic Q2HR PRN Administration Dry Lips Sodium Chloride 100 mls @ 999 mls/hr 01/12/21 09:20 Nacl 0.9% IV [place] PRN Hypotension Octreotide Acetate 500 mcg/ 101 mls @ 5.05 mls/hr 01/13/21 11:00 01/14/21 05:13 Sodium Chloride IV 25 mcg/hr TITR THOMAS 5.05 mls/hr Administration Protocol 25 MCG/HR Piperacillin Sod/Tazobactam Sod 2.25 gm in 50 mls @ 100 mls/hr 01/13/21 12:00 01/14/21 11:16 Zosyn/Ns 2.25 Gm/50ml IV 100 mls/hr Q8H THOMAS Administration Protocol Amino Acids/Electrolytes/Dextrose 2,016 mls @ 0 mls/hr 01/14/21 20:00 Tpn Adult IV 01/15/21 08:00 DAILY@1999 [facility] Protocol As Directed Insulin Glargine 15 units 01/14/21 09:30 01/14/21 10:12 Insulin Glargine 100 Units/Ml SUB-Q 15 units QAMDIAB [facility] Administration Insulin Human Lispro 0 unit 01/03/21 12:00 01/14/21 06:52 Insulin Lispro 100 Unit/Ml SUB-Q 3 unit Q6HR [facility] Administration Protocol Metoprolol Tartrate 5 mg 12/30/20 12:00 01/14/21 11:18 Metoprolol Tartrate 5 Mg/5 Ml Inj IV 5 mg Q4HR THOMAS Administration Multi-Ingred Cream/Lotion/Oil/Oint 1 applic 12/31/20 06:39 Mineral Oil/Petrolatum, White Ophth Oint 3.5 Gm OU Q4HR PRN Dry Eye(s) Scopolamine 1 each 01/15/21 11:00 Scopolamine Transdermal Patch 72 Hr TD Q3D THOMAS Sodium Chloride 10 ml 12/22/20 22:00 01/14/21 10:00 Sodium Chloride 0.9% 10 Ml Flush Syringe IV 10 ml BID THOMAS Administration Sodium Chloride 10 ml 12/22/20 19:42 01/09/21 17:27 Sodium Chloride 0.9% 10 Ml Flush Syringe IV 10 ml PRN PRN Administration LINE FLUSH
--- NOTE | 2021-01-14 13:56 | Progress Note ---
Assessment and Plan Assessment and plan: This is a 60-year-old male with ESRD on peritoneal dialysis, Crohn's, hypertension, systolic CHF (EF 35%) who was admitted with sepsis, peritonitis, small bowel obstruction and streptococcus bovis bacteremia/Prevotella bacteremia Severe Sepsis with shock Streptococcus bovis bacteremia/Prevotella bacteremia Gwendolyn albicans tracheal aspirate Small bowel obstruction/necrotic bowel s/p ex lap with extensive lysis of adhesions, 2 small bowel resections with primary anastomosis, right hemicolectomy, jejunal colonic anastomosis, segmental small bowel resection Acute hypoxic respiratory failure Postoperative ileus Atrial fibrillation with RVR Leukocytosis Hypochloremia Gwendolyn albicans in tracheal aspirate from 12/24 ESRD on PD, PermCath to be placed Transaminitis Systolic CHF(EF 35%) Crohn's disease Hypertension -[facility], surgery, infectious disease, nephrology, vascular surgery, cardiology consulted, appreciate recommendations -12/24 S/p ex lap with extensive expectations, 2 small bowel resections with primary anastomosis with surgery on 12/23 -s/p PICC and Permacath placement with vascular surgery on 12/27 -Extubated on 12/28, reintubated 12/31 for respiratory distress and extubated 01/08 -12/29 echocardiogram shows moderate concentric LVH, small pericardial effusion, transmitral Doppler flow pattern is grade 1 abnormal relaxation pattern, left- ventricular systolic function normal, LVEF 50 to 55%, no wall motion abnormalities. -01/01 CT abdomen/pelvis shows small pericardial effusion, mild coronary artery atherosclerotic calcification, small bilateral pleural effusions with associated volume loss, no convincing evidence of bowel obstruction or inflammation, postoperative changes from interval/recent midline laparotomy with a moderate amount of free fluid throughout the abdomen, small amount of dependent free air presumably postoperative -01/02 s/p ex lap, resection of perforated anastamosis, washout and abthera wound vac placement. -01/04 s/p ex lap with right hemicolectomy. -01/06 s/p exploratory laparotomy, Jejunal colonic anastomosis, Segmental small bowel resection. -s/p Vasopressor support with Levophed and vasopressin -Transitioned to HD from PD -HD per nephro, Epogen with HD -Strict NPO -TPN -Octreotide drip -NGT to LIWS -s/p IV antibiotics -Tobacco abuse cessation counseling -Trend CBC, BMP DVT/GI prophylaxis: PPI, heparin subcu, SCDs to bilateral lower extremities while in bed Disposition: IMCU Critical care statement The high probability of a clinically significant, sudden or life threatening deterioration of the [pulmonary, cardiac, neuro, renal] system(s) required my full and direct attention, intervention and personal management. The aggregate critical care time was [35] minutes. This time is in addition to time spent performing reported procedures but includes the following: [x] Data Review and interpretation [x] Patient assessment and monitoring of vital signs [x] Documentation [x] Medication orders and management History Interval history: This is a 60 YO Male with ESRD on PD, GERD, Crohn's Disease, Nicotine Dependence, HTN, Systolic CHF(EF 35%) who presented to the emergency department on 12/22 with complaints of abdominal pain which began shortly after eating fast food rated 10/10 which is periumbilical, constant, associated with fever, nausea and multiple sites of vomiting and self-reported inability to undergo PD. In the emergency room patient underwent a CT scan of the abdomen/pelvis which revealed evidence of partial small bowel obstruction, symptoms were consistent with bacterial peritonitis. Patient was admitted to the hospital service with sepsis, peritonitis, and small bowel obstruction with consults to general surgery, nephrology, infectious disease and [facility]. 12/23. Patient had temperature 101.2 F, tachycardia and elevated lactic acid on admission. Meet sepsis criteria. Started on IV antibiotics. ID has been consulted. Surgery consulted this a.m.-advised laparoscopy. He remains on NG tube connected to suction. 12/24. Patient was noted to have peritonitis yesterday and patient undergoing exploratory laparotomy. Patient remained intubated after procedure and is in ICU. Now on broad-spectrum antibiotics. ID on board. 12/25. Remains mechanically ventilated and sedated. Temp 103 Fahrenheit. Antibiotics broadened-ID added fluconazole and Flagyl. Blood cultures ordered. Plan to repeat CT abdomen tomorrow if not better. Surgery following. 12/26: Patient remains on mechanical ventilation on CMV tidal line 550, rate of 14, PEEP of 8 and 30% FiO2 and sedated on fentanyl 4 micrograms. Today we will remove his Jeffery and CCM dropped his rate controlled him on CPAP. We will trend CBC given recent drop in H/H. 12/27: Patient remains intubated on CMV tidal volume 550, rate 12, PEEP 8 on 30% FiO2 at the time my examination. Patient's TPN will be changed to PPN. Patient's fentanyl drip will be changed to IV push fentanyl and have a permacath placed today and midline. Patient was placed on a spontaneous breathing trial was switched back to CMV prior to procedure. 12/28: Patient on fentanyl but awake and follows commands. At the time of my examination he was on a CPAP trial and is scheduled to receive HD today. s/o permacath and PICC placement with vascular yesterday. His blood culture grew Prevotella and addition to Streptococcus bovis. This evening Dr. Spicer attempted to extubate the patient and his heart rate went to the 180s. Stat EKG obtained and cardiology consulted. 12/29: Patient was started on amiodarone IV for A. fib RVR yesterday and today he is more rate controlled into the 70s and 80s. Patient was extubated yesterday and is currently on Ventimask. Patient will be transferred to [facility]. Patient co ntinues to be n.p.o. with TPN and NG tube to LIS. He is hypokalemic today which was repleted. 12/30; patient was on IV amiodarone for treatment with RVR, rate is controlled. Patient was off oxygen. patient is n.p.o. and on TPN. Surgery is following the patient. 12/31: Patient was intubated overnight for respiratory distress and this morning on examination he was on assist control tidal volume 450, rate 20, PEEP 6, 100% FiO2 and RT was getting a ABG to adjust vent settings. Patient had a acute bump in WBC and per ID recommendations we will obtain a CT abdomen/pelvis if leukocytosis persist. Patient is on TPN and sedated with Levophed. Patient is also on vasopressor support with Levophed. Per surgery his ileus is resolving however will maintain OGT to LIWS. 01/01: Patient was started on a vasopressin yesterday late evening. This morning patient is on 20 mcg of Levophed and 0.03 vasopressin and sedated on 20 mcg of propofol. Patient WBC increased today and he is hypokalemic. We will treat hyperkalemia. Patient had a CT chest and abdomen/pelvis pending. The time examination total of 450, rate 20, PEEP of 6 and 35 percent FiO2. Per RN, Dr Pollock has stated that the patient will be returning to the OR today for likely anastomosis seen on CT abdomen/pelvis. 5: Patient noted, WBC improving, but noted to have anemia, will transfuse additional unit of Blood and repeat H/H. continue supportive care. 01/03: Continue to wean pressors, ABX PER ID, patient to return to OR today for washout and possible closure, CONTINUE TPN 01/04: Continues to show some improvement. Today is POD#12 s/p ex lap with extensive lysis of adhesions and two small bowel resections with primary anastamosis for SBO with necrotic segment small bowel. POD#3 s/p ex lap, resection of perforated anastamosis, washout and abthera wound vac placement. POD#1 s/p ex lap with right hemicolectomy. Surgery planning to take back to the OR on Saturday with the hope to anastamos ileum to transverse colon and close abdomen. keep NGT to suction. Pt in deep sedation due to open abdomen. Per ID - Continue IV Zosyn, renally dosed for Strep bacteremia treatment till 01/06/2021 -On TPN 01/05: Patient continues on HD, anticipate return to OR tomorrow for closure and anastemosis. Continues with deep sedation due to open abdomen 01/06: Continue supportive care, monitor pressures and electrolytes. He is post op Exploratory laparotomy, 2. Jejunal colonic anastomosis,3. Segmental small bowel resection and anastemosis closure today. Continue wound vac 01/07: Continue supportive care, Today is POD#15 s/p ex lap with extensive lysis of adhesions and two small bowel resections with primary anastamosis for SBO with necrotic segment small bowel. POD#6 s/p ex lap, resection of perforated anastamosis, washout and abthera wound vac placement. POD#4 s/p ex lap with right hemicolectomy. POD #1 exploratory laparotomy, 2. Jejunal colonic anastomosis,3. Segmental small bowel resection. Continue to monitor and correct electrolytes. Patient remains on fentanyl and TPN with lipids. Still hypoactive bowel sounds. 01/08: Patient now extubated, asked when he can go home, Still lethargic. Continue wound management, wound vac, Will need Rehab eval prior to discharge. 01/09: Patient remains on TPN, was started on labetalol drip per cardiology, patient had uncontrolled hypertension today however he cannot be given p.o. medications ileus resolves per surgery. Patient received hemodialysis today. NG tube remains to low intermittent suction. 01/10: Patient has some leukocytosis, slight hypokalemia and hyponatremia, metabolic acidosis. NG tube to LIWS, continue TPN. Patient will be downgraded to IMCU today. [facility] is working on placement. Will change frequency of hydralazine and discontinue labetalol drip. We will obtain a.m. BMP/mag/Phos and CBC. Infectious disease will like to start Zosyn if leukocytosis continues to worsen. 01/11: Patient leukocytosis has slightly improved potassium with in normal limits and other electrolytes are elevated but patient is scheduled for HD today. Remains on RA and A,A,Ox4. BP better controlled but remains elevated and we will increase clonidine dose. 01/12/2021; patient's blood pressure is better after dialysis and as needed IV medications and clonidine patch. Patient is followed by general surgery. Patient was alert and oriented and asked when he is going home. 01/13: Surgery is concerned about a leak at his anastamosis given increased output and will treat as controlled fistula and start an octreotide drip. And per surgery if he requires operative intervention will likely need to be left in discontinuity and eventual ileostomy as he has already failed two anastamoses. Patient still has tongue swelling and slurred speech. He is on Benadryl. 01/14: Patient's tongue swelling is improved, patient is alert and oriented, CAM ICU negative. Continue NG tube to low wall intermittent suction. Leukocytosis is improving. Hypomagnesemia resolved. Epogen with HD Hospitalist Physical - Constitutional Vitals: Temp Pulse Resp BP Pulse Ox 97.8 F 86 16 172/85 98 01/14/21 12:00 01/14/21 11:18 01/14/21 06:00 01/14/21 11:18 01/14/21 07:55 General appearance: Present: no acute distress HEART Score - HEART Score Troponin: Troponin T 0.021 ng/mL (0.00-0.029) 12/22/20 14:38 Results - Labs CBC & Chem 7: 01/14/21 10:00 01/14/21 05:39 Labs: Laboratory Last Values WBC 17.0 K/mm3 (4.5-11.0) H 01/14/21 10:00 RBC 3.10 M/mm3 (3.65-5.03) L 01/14/21 10:00 Hgb 9.6 gm/dl (11.8-15.2) L 01/14/21 10:00 Hct 27.4 % (35.5-45.6) L 01/14/21 10:00 MCV 89 fl (84-94) 01/14/21 10:00 MCH 31 pg (28-32) 01/14/21 10:00 MCHC 35 % (32-34) H 01/14/21 10:00 RDW 15.6 % (13.2-15.2) H 01/14/21 10:00 Plt Count 331 K/mm3 (140-440) 01/14/21 10:00 Lymph % (Auto) 4.4 % (13.4-35.0) L 01/13/21 03:45 [place] % (Auto) 10.3 % (0.0-7.3) H 01/13/21 03:45 Eos % (Auto) 0.9 % (0.0-4.3) 01/13/21 03:45 Baso % (Auto) 0.2 % (0.0-1.8) 01/13/21 03:45 Lymph # (Auto) 0.8 K/mm3 (1.2-5.4) L 01/13/21 03:45 [place] # (Auto) 1.8 K/mm3 (0.0-0.8) H 01/13/21 03:45 Eos # (Auto) 0.2 K/mm3 (0.0-0.4) 01/13/21 03:45 Baso # (Auto) 0.0 K/mm3 (0.0-0.1) 01/13/21 03:45 Add Manual Diff Complete 01/10/21 09:26 Total Counted 100 01/10/21 09:26 Seg Neutrophils % 84.2 % (40.0-70.0) H 01/13/21 03:45 Seg Neuts % (Manual) 95.0 % (40.0-70.0) H 01/10/21 09:26 Band Neutrophils % 1.0 % 01/10/21 09:26 Lymphocytes % (Manual) 3.0 % (13.4-35.0) L 01/10/21 09:26 Reactive Lymphs % (Man) 1.0 % 12/29/20 05:16 Monocytes % (Manual) 1.0 % (0.0-7.3) 01/10/21 09:26 Eosinophils % (Manual) 2.0 % (0.0-4.3) 12/29/20 05:16 Metamyelocytes % 2.0 % 12/29/20 05:16 Nucleated RBC % Not Reportable 01/10/21 09:26 Seg Neutrophils # 14.8 K/mm3 (1.8-7.7) H 01/13/21 03:45 Seg Neutrophils # Man 17.3 K/mm3 (1.8-7.7) H 01/10/21 09:26 Band Neutrophils # 0.2 K/mm3 01/10/21 09:26 Lymphocytes # (Manual) 0.5 K/mm3 (1.2-5.4) L 01/10/21 09:26 Abs React Lymphs (Man) 0.0 K/mm3 01/10/21 09:26 Monocytes # (Manual) 0.2 K/mm3 (0.0-0.8) 01/10/21 09:26 Eosinophils # (Manual) 0.0 K/mm3 (0.0-0.4) 01/10/21 09:26 Basophils # (Manual) 0.0 K/mm3 (0.0-0.1) 01/10/21 09:26 Metamyelocytes # 0.0 K/mm3 01/10/21 09:26 Myelocytes # 0.0 K/mm3 01/10/21 09:26 Promyelocytes # 0.0 K/mm3 01/10/21 09:26 Blast Cells # 0.0 K/mm3 01/10/21 09:26 WBC Morphology Not Reportable 01/10/21 09:26 Hypersegmented Neuts Not Reportable 01/10/21 09:26 Hyposegmented Neuts Not Reportable 01/10/21 09:26 Hypogranular Neuts Not Reportable 01/10/21 09:26 Smudge Cells Not Reportable 01/10/21 09:26 Toxic Granulation 1+ 01/10/21 09:26 Toxic Vacuolation Not Reportable 01/10/21 09:26 Dohle Bodies Not Reportable 01/10/21 09:26 Pelger-Huet Anomaly Not Reportable 01/10/21 09:26 Laamr Rods Not Reportable 01/10/21 09:26 Platelet Estimate Consistent w auto 01/10/21 09:26 Clumped Platelets Not Reportable 01/10/21 09:26 Plt Clumps, EDTA Not Reportable 01/10/21 09:26 Large Platelets Not Reportable 01/10/21 09:26 Giant Platelets Not Reportable 01/10/21 09:26 Platelet Satelliting Not Reportable 01/10/21 09:26 Plt Morphology Comment Not Reportable 01/10/21 09:26 RBC Morphology Not Reportable 01/10/21 09:26 Dimorphic RBCs Not Reportable 01/10/21 09:26 Polychromasia Not Reportable 01/10/21 09:26 Hypochromasia Not Reportable 01/10/21 09:26 Poikilocytosis Not Reportable 01/10/21 09:26 Anisocytosis 1+ 01/10/21 09:26 Microcytosis Not Reportable 01/10/21 09:26 Macrocytosis Not Reportable 01/10/21 09:26 Spherocytes Not Reportable 01/10/21 09:26 Pappenheimer Bodies Not Reportable 01/10/21 09:26 Sickle Cells Not Reportable 01/10/21 09:26 Target Cells Not Reportable 01/10/21 09:26 Tear Drop Cells Not Reportable 01/10/21 09:26 Ovalocytes Not Reportable 01/10/21 09:26 Helmet Cells Not Reportable 01/10/21 09:26 [place] Bodies Not Reportable 01/10/21 09:26 [place] Rings Not Reportable 01/10/21 09:26 [place] Cells Not Reportable 01/10/21 09:26 Bite Cells Not Reportable 01/10/21 09:26 Crenated Cell Not Reportable 01/10/21 09:26 Elliptocytes Not Reportable 01/10/21 09:26 Acanthocytes (Spur) Not Reportable 01/10/21 09:26 Rouleaux Not Reportable 01/10/21 09:26 Hemoglobin C Crystals Not Reportable 01/10/21 09:26 Schistocytes Not Reportable 01/10/21 09:26 Malaria parasites Not Reportable 01/10/21 09:26 Lucas Bodies Not Reportable 01/10/21 09:26 Hem Pathologist Commnt No 01/10/21 09:26 PT 16.9 Sec. (12.2-14.9) H 01/01/21 12:45 INR 1.39 (0.87-1.13) H 01/01/21 12:45 APTT 25.1 Sec. (24.2-36.6) 12/22/20 14:38 ABG pH 7.345 pH Units (7.350-7.450) L 01/07/21 17:14 POC ABG pCO2 41.4 mmHg (32.0-48.0) 01/07/21 03:07 ABG pCO2 40.3 mm Hg 01/07/21 17:14 POC ABG pO2 94.5 mmHg (83-108) 01/07/21 03:07 ABG pO2 67.4 mm Hg (80.0-90.0) L 01/07/21 17:14 POC ABG HCO3 22.7 01/07/21 03:07 ABG HCO3 21.5 mmol/L (20.0-26.0) 01/07/21 17:14 ABG O2 Saturation 94.3 % (95.0-99.0) L 01/07/21 17:14 ABG O2 Content 11.6 (0.0-44) 01/07/21 17:14 POC ABG Base Excess -2.7 01/07/21 03:07 ABG Base Excess -3.9 mmol/L (-2.0-3.0) L 01/07/21 17:14 ABG Hemoglobin 8.9 gm/dl (14.0-18.0) L 01/07/21 17:14 ABG Oxyhemoglobin 96.6 (94-98) 01/07/21 03:07 ABG Carboxyhemoglobin 1.5 % (0.0-5.0) 01/07/21 17:14 ABG Methemoglobin 0.6 % (0.0-1.5) 01/07/21 17:14 ABG Sodium 135.6 mmol/L (136.0-145.0) L 01/07/21 03:07 ABG Potassium 4.0 mmol/L (3.40-4.50) 01/07/21 03:07 ABG Chloride 102.0 mmol/L (98-107) 01/07/21 03:07 ABG Glucose 181 mg/dL (65-95) H 01/07/21 03:07 Oxyhemoglobin 92.3 % (95.0-99.0) L 01/07/21 17:14 Carboxyhemoglobin 0.7 (0.5-1.5) 01/07/21 03:07 FiO2 21 % 01/07/21 17:14 FiO2 % 45.0 01/07/21 03:07 Sodium 137 mmol/L (137-145) 01/14/21 05:39 Potassium 3.8 mmol/L (3.6-5.0) 01/14/21 05:39 Chloride 97.6 mmol/L (98-107) L 01/14/21 05:39 Carbon Dioxide 24 mmol/L (22-30) 01/14/21 05:39 Anion Gap 19 mmol/L 01/14/21 05:39 BUN 81 mg/dL (9-20) H 01/14/21 05:39 Creatinine 7.6 mg/dL (0.8-1.3) H 01/14/21 05:39 Estimated GFR 9 ml/min 01/14/21 05:39 BUN/Creatinine Ratio 11 % 01/14/21 05:39 Glucose 193 mg/dL (75-100) H 01/14/21 05:39 POC Glucose 90 mg/dL (70-105) 01/14/21 11:26 Lactic Acid 1.10 mmol/L (0.7-2.0) 01/14/21 05:39 Calcium 8.2 mg/dL (8.4-10.2) L 01/14/21 05:39 Phosphorus 4.60 mg/dL (2.5-4.5) H 01/14/21 05:39 Magnesium 2.20 mg/dL (1.7-2.3) 01/14/21 05:39 Total Bilirubin 0.90 mg/dL (0.1-1.2) 01/08/21 04:34 AST 30 units/L (5-40) 01/08/21 04:34 ALT 29 units/L (7-56) 01/08/21 04:34 Alkaline Phosphatase 133 units/L (35-129) H 01/08/21 04:34 Ammonia 30.0 umol/L (25-60) 12/22/20 14:38 Troponin T 0.021 ng/mL (0.00-0.029) 12/22/20 14:38 Total Protein 5.4 g/dL (6.3-8.2) L 01/08/21 04:34 Albumin 1.9 g/dL (3.9-5) L 01/08/21 04:34 Albumin/Globulin Ratio 0.5 % 01/08/21 04:34 Triglycerides 77 mg/dL (2-149) 01/11/21 05:18 Lipase 41 units/L (13-60) 12/22/20 14:38 Procalcitonin > 200.00 ng/mL (<0.15) 12/24/20 15:06 TSH 1.470 mlU/mL (0.270-4.200) 12/28/20 19:44 Arterial Blood Glucose 181 mg/dL (65-95) H 01/07/21 03:07 Arterial Blood Ionized Calcium 4.3 mg/dL (4.6-5.3) L 01/07/21 03:07 Urine Color Yellow (Yellow) 12/22/20 18:53 Urine Turbidity Clear (Clear) 12/22/20 18:53 Urine pH 7.0 (5.0-7.0) 12/22/20 18:53 Ur Specific [place] 1.012 (1.003-1.030) 12/22/20 18:53 Urine Protein >500 mg/dL (Negative) 12/22/20 18:53 Urine Glucose (UA) Neg mg/dL (Negative) 12/22/20 18:53 Urine Ketones Neg mg/dL (Negative) 12/22/20 18:53 Urine Blood Neg (Negative) 12/22/20 18:53 Urine Nitrite Neg (Negative) 12/22/20 18:53 Urine Bilirubin Neg (Negative) 12/22/20 18:53 Urine Urobilinogen < 2.0 mg/dL (<2.0) 12/22/20 18:53 Ur Leukocyte Esterase Neg (Negative) 12/22/20 18:53 Urine WBC (Auto) < 1.0 /HPF (0.0-6.0) 12/22/20 18:53 Urine RBC (Auto) 1.0 /HPF (0.0-6.0) 12/22/20 18:53 Fluid Type Dialysate 12/22/20 Unknown Fluid Color Colorless 12/22/20 Unknown Fluid Appearance Cloudy 12/22/20 Unknown Fluid WBC 208 /mm3 12/22/20 Unknown Fluid RBC 45 /mm3 12/22/20 Unknown Fluid Seg Neutrophils 82.0 % 12/22/20 Unknown Fluid Lymphocytes 11.0 % 12/22/20 Unknown Fluid Reactive Lymphs 0 % 12/22/20 Unknown Fluid Monocytes 7.0 % 12/22/20 Unknown Fluid Eosinophils 0 % 12/22/20 Unknown Fluid Basophils 0 % 12/22/20 Unknown Random Vancomycin 13.7 ug/mL (0-40.0) 12/26/20 Unknown Digoxin 0.8 ng/mL (0.9-2.0) L 01/11/21 05:18 Hepatitis A IgM Ab Non-reactive (NonReactive) 12/23/20 11:38 Hep Bs Antigen Non-reactive (Negative) 12/23/20 11:38 Hep B Core IgM Ab Non-reactive (NonReactive) 12/23/20 11:38 Hepatitis C Antibody Non-reactive (NonReactive) 12/23/20 11:38 Blood Type A POSITIVE 01/06/21 07:10 Antibody Screen Negative 01/06/21 07:10 Crossmatch See Detail 01/06/21 07:10 Jeffery/IV: Voiding Method Incontinent Active Medications - Current Medications Current Medications: Generic Name Dose Route Start Last Admin Trade Name Freq PRN Reason Stop Dose Admin Acetaminophen 650 mg 12/31/20 15:30 12/31/20 15:13 Acetaminophen 650 Mg Rect Supp ME 650 mg Q6H PRN Administration Non Cardiac Pain or Temp>100.5 Clonidine HCl 0.2 mg 01/11/21 10:00 01/11/21 09:24 Clonidine Tts 0.2 Mg/24 Hr Patch TD 0.2 mg We THOMAS Administration Digoxin 0.125 mg 01/09/21 12:00 01/13/21 12:34 Digoxin 0.5 Mg/2 Ml Inj IV 0.125 mg Q48H THOMAS Administration Famotidine 10 mg 12/24/20 13:00 01/14/21 10:13 Famotidine 20 Mg/2 Ml Inj IV 10 mg BID THOMAS Administration Glycopyrrolate 0.2 mg 01/13/21 15:00 01/14/21 05:15 Glycopyrrolate 0.4 Mg/2 Ml Inj IV 01/16/21 14:59 0.2 mg Q6H THOMAS Administration Haloperidol Lactate 5 mg 12/29/20 14:16 01/09/21 01:41 Haloperidol Lactate 5 Mg/1 Ml Inj IV 5 mg Q12H PRN Administration Agitation Heparin Sodium (Porcine) 5,000 unit 12/24/20 10:00 01/14/21 10:15 Heparin 5,000 Unit/1 Ml Vial SUB-Q 5,000 unit Q12HR THOMAS Administration Hydralazine HCl 10 mg 01/10/21 14:00 01/14/21 11:17 Hydralazine 20 Mg/1 Ml Inj IV 10 mg Q4HR THOMAS Administration Hydromorphone HCl 0.25 mg 01/09/21 10:53 01/13/21 21:45 Hydromorphone 1 Mg/1 Ml Inj IV 0.25 mg Q6H PRN Administration Pain , Severe (7-10) Hydrophilic Ointment 1 applic 12/31/20 06:39 01/11/21 21:28 Lip Therapy Vaseline TP 1 applic Q2HR PRN Administration Dry Lips Sodium Chloride 100 mls @ 999 mls/hr 01/12/21 09:20 Nacl 0.9% IV [place] PRN Hypotension Octreotide Acetate 500 mcg/ 101 mls @ 5.05 mls/hr 01/13/21 11:00 01/14/21 05:13 Sodium Chloride IV 25 mcg/hr TITR THOMAS 5.05 mls/hr Administration Protocol 25 MCG/HR Piperacillin Sod/Tazobactam Sod 2.25 gm in 50 mls @ 100 mls/hr 01/13/21 12:00 01/14/21 11:16 Zosyn/Ns 2.25 Gm/50ml IV 100 mls/hr Q8H THOMAS Administration Protocol Amino Acids/Electrolytes/Dextrose 2,016 mls @ 0 mls/hr 01/14/21 20:00 Tpn Adult IV 01/15/21 08:00 DAILY@1999 [facility] Protocol As Directed Insulin Glargine 15 units 01/14/21 09:30 01/14/21 10:12 Insulin Glargine 100 Units/Ml SUB-Q 15 units QAMDIAB THOMAS Administration Insulin Human Lispro 0 unit 01/03/21 12:00 01/14/21 06:52 Insulin Lispro 100 Unit/Ml SUB-Q 3 unit Q6HR THOMAS Administration Protocol Metoprolol Tartrate 5 mg 12/30/20 12:00 01/14/21 11:18 Metoprolol Tartrate 5 Mg/5 Ml Inj IV 5 mg Q4HR THOMAS Administration Multi-Ingred Cream/Lotion/Oil/Oint 1 applic 12/31/20 06:39 Mineral Oil/Petrolatum, White Ophth Oint 3.5 Gm OU Q4HR PRN Dry Eye(s) Scopolamine 1 each 01/15/21 11:00 Scopolamine Transdermal Patch 72 Hr TD Q3D THOMAS Sodium Chloride 10 ml 12/22/20 22:00 01/14/21 10:00 Sodium Chloride 0.9% 10 Ml Flush Syringe IV 10 ml BID THOMAS Administration Sodium Chloride 10 ml 12/22/20 19:42 01/09/21 17:27 Sodium Chloride 0.9% 10 Ml Flush Syringe IV 10 ml PRN PRN Administration LINE FLUSH Nutrition/Malnutrition Assess - Dietary Evaluation Nutrition/Malnutrition Findings: Nutrition Notes Start: 12/24/20 12:36 Freq: Status: Active Protocol: Document 01/14/21 10:06 LP (Rec: 01/14/21 10:13 LP [id number]) Nutrition Notes Initial or Follow up Reassessment Current Diagnosis CKD (stage V CKD),Sepsis, Hypertension,Heart Failure, Small Bowel Obstruction Other Pertinent Diagnosis Peritonitis, SBO s/p resection Current Diet 12 h Cyclic CPN 108/180/108 Labs/Tests Phos 4.6 Phos 2.2 Pertinent Medications 2g Mg Height 5 ft 7 in Weight 86.6 kg [place] Body Weight (kg) 67.27 BMI 29.9 Weight Status Overweight Subjective/Other Information TPN day 20. Increased anastomosis output with possible leak. Percent of energy/protein needs met: 100%/100% Burn Absent Trauma Absent Current % PO Negligible Minimum of two criteria No #1 Nutrition Diagnosis Inadequate oral intake Diagnosis Progress(for reassessment Continues documentation) Is patient on ventilator? No Is Patient Ambulatory and/or Out of Bed No REE-([place]-confined to bed) 1954.464 Kcal/Kg value to use for calculation 19 Approximate Energy Requirements Using 1645 kcal/Kg Calculation Used for Recommendations Kcal/kg Additional Notes Pro needs: 101-121 g/day (1.25 -1.5 g/kg AdjBW, 81kg) Fluid needs per MD. Nutrition Intervention Change Diet Order: Continue CPN Nutrition Support: 12 h Cyclic CPN at 108/180/108 ml/hr 20mEq K, MVI Osmolality: 1600 Kcal 1,674 Protein (gm) 121 Carbohydrates (gm) 350 Fat (gm) 0 Fluid (mL) 2,016 Fiber (gm) 0 Goal #1 Meet at least 75% of estimated energy and protein needs via CPN Anticipated Discharge Needs: 12 hour cyclic TPN Follow-Up By: 01/16/21 Additional Comments Labs in AM: KAREN
[2021-01-14] MEDS ORDERED: DEXTROSE 50% IN WATER (25GM) 50 ML SYRINGE IV ONE (17:08)
[2021-01-14] MEDS: HYDROmorphone 1 MG/1 ML INJ IV PRN (17:33)
--- NOTE | 2021-01-14 17:51 | Progress Note ---
Subjective Date of service: 01/14/21 Principal diagnosis: Ac hypoxemic resp failure; Severe Sepsis; Peritonitis; Acute SBO; ESRD; CHF Interval history: No new CV findings Assessment and Plan - Patient Problems (1) Atrial fibrillation Current Visit: Yes Status: Acute Plan to address problem: Continue medical therapy as previously outlined for paroxysmal atrial fibrillation. Subjective Date of service: 01/13/21 Principal diagnosis: Ac hypoxemic resp failure; Severe Sepsis; Peritonitis; Acute SBO; ESRD; CHF Interval history: No new cardiac complaints, patient in a stable sinus rhythm. Objective Vital Signs Temp Pulse Pulse Resp BP Pulse Ox 01/14/21 17:35 80 176/87 01/14/21 17:30 81 176/87 01/14/21 17:29 74 176/71 01/14/21 12:00 97.8 F 01/14/21 11:18 86 172/85 01/14/21 11:17 89 172/85 01/14/21 08:00 97.6 F 01/14/21 07:55 98 01/14/21 06:00 90 16 143/69 97 01/14/21 05:09 77 174/69 01/14/21 05:08 77 174/69 01/14/21 05:00 76 15 174/69 100 01/14/21 04:00 98.8 F 72 71 12 150/69 99 01/14/21 03:00 75 16 138/60 97 01/14/21 02:37 77 144/68 01/14/21 02:35 77 144/68 01/14/21 02:00 74 15 147/64 97 01/14/21 01:00 74 13 145/68 96 01/14/21 00:00 98.4 F 82 80 14 177/79 95 01/13/21 23:00 79 13 174/96 98 01/13/21 22:15 67 173/81 01/13/21 22:13 68 173/81 01/13/21 22:00 66 15 173/81 99 01/13/21 21:58 66 12 165/78 98 01/13/21 21:45 15 01/13/21 21:00 68 13 146/84 98 01/13/21 20:09 98 01/13/21 20:00 97.6 F 66 66 11 L 171/79 99 01/13/21 19:00 69 10 L 165/90 01/13/21 18:00 74 13 167/79 97 - Physical Examination General: No Apparent Distress HEENT: Positive: PERRL Neck: Positive: neck supple Cardiac: Positive: Reg Rate and Rhythm, S1/S2 Lungs: Positive: clear to auscultation Neuro: Positive: Weakness (Sedated, on the vent) Abdomen: Positive: Other (post op) Skin: Positive: Clear Extremities: Present: normal. Absent: edema - Labs and Meds CBC 01/14/21 Range/Units 10:00 WBC 17.0 H (4.5-11.0) K/mm3 RBC 3.10 L (3.65-5.03) M/mm3 Hgb 9.6 L (11.8-15.2) gm/dl Hct 27.4 L (35.5-45.6) % Plt Count 331 (140-440) K/mm3 Comprehensive Metabolic Panel 01/13/21 01/14/21 Range/Units 20:22 05:39 Sodium 137 (137-145) mmol/L Potassium 4.4 D 3.8 (3.6-5.0) mmol/L Chloride 97.6 L (98-107) mmol/L Carbon Dioxide 24 (22-30) mmol/L BUN 81 H (9-20) mg/dL Creatinine 7.6 H (0.8-1.3) mg/dL Glucose 193 H (75-100) mg/dL Calcium 8.2 L (8.4-10.2) mg/dL - Allied health notes Allied health notes reviewed: nursing
[2021-01-14] MEDS: DEXTROSE 50% IN WATER (25GM) 50 ML SYRINGE IV PRN ×2 (18:10→23:19)
[2021-01-14] MEDS ORDERED: TOTAL PARENTERAL NUTRITION 2,016 ML IV SCH (20:00)
[2021-01-15] MEDS: hydrALAZINE 20 MG/1 ML INJ IV SCH ×6 (02:45→21:45)
[2021-01-15] MEDS: METOPROLOL TARTRATE 5 MG/5 ML INJ IV SCH ×6 (02:45→21:47)
[2021-01-15] MEDS: PIPERACIL-TAZO 2.25 GM/50 ML 2.25 GM/50 ML BAG IV SCH ×3 (03:18→20:50)
[2021-01-15] MEDS: OCTREOTIDE 500 MCG in SODIUM CHLORIDE 0.9% 100 ML IV SCH ×2 (03:22→18:54)
[2021-01-15] MEDS: GLYCOPYRROLATE 0.4 MG/2 ML INJ IV SCH ×4 (04:03→21:44)
[2021-01-15] MEDS: INSULIN LISPRO 100 UNIT/ML SUB-Q SCH ×3 (05:37→18:14)
[2021-01-15] MEDS: HYDROmorphone 1 MG/1 ML INJ IV PRN ×2 (06:24→22:08)
[2021-01-15 06:45] LABS: Hematocrit 27.3 % (35.5-45.6); Hemoglobin 9.3 gm/dl (11.8-15.2); Mean Corpuscular HGB Conc 34 % (32-34); Mean Corpuscular Volume 90 fl (84-94); Platelet Count 322 K/mm3 (140-440); Red Blood Count 3.02 M/mm3 (3.65-5.03); Red Cell Distribution Width 15.6 % (13.2-15.2)
[2021-01-15 06:55] LABS: Calcium 8.3 mg/dL (8.4-10.2)
[2021-01-15] MEDS: INSULIN GLARGINE 100 UNITS/ML SUB-Q SCH (08:00)
[2021-01-15] MEDS: FAMOTIDINE 20 MG/2 ML INJ IV SCH ×2 (09:03→21:48)
[2021-01-15] MEDS: HEPARIN 5,000 UNIT/1 ML VIAL SUB-Q SCH ×2 (09:03→22:08)
[2021-01-15] MEDS ORDERED: INSULIN GLARGINE 100 UNITS/ML SUB-Q SCH (09:30)
[2021-01-15] MEDS ORDERED: cloNIDine TTS 0.1 MG/24 HR PATCH TD SCH (11:00)
[2021-01-15] MEDS: SCOPOLAMINE TRANSDERMAL PATCH 72 HR TD SCH (12:00)
[2021-01-15] MEDS: DIGOXIN 0.5 MG/2 ML INJ IV SCH (12:07)
[2021-01-15] MEDS: DEXTROSE 50% IN WATER (25GM) 50 ML SYRINGE IV PRN (12:08)
--- NOTE | 2021-01-15 12:10 | Progress Note ---
Assessment and Plan Assessment and plan: This is a 60-year-old male with ESRD on peritoneal dialysis, Crohn's, hypertension, systolic CHF (EF 35%) who was admitted with sepsis, peritonitis, small bowel obstruction and streptococcus bovis bacteremia/Prevotella bacteremia Severe Sepsis with shock Streptococcus bovis bacteremia/Prevotella bacteremia Gwendolyn albicans tracheal aspirate Small bowel obstruction/necrotic bowel s/p ex lap with extensive lysis of adhesions, 2 small bowel resections with primary anastomosis, right hemicolectomy, jejunal colonic anastomosis, segmental small bowel resection Postoperative ileus Atrial fibrillation with RVR Leukocytosis Hypochloremia Gwendolyn albicans in tracheal aspirate from 12/24 ESRD on PD, PermCath to be placed Transaminitis Systolic CHF(EF 35%) Crohn's disease Hypertension -[facility], surgery, infectious disease, nephrology, vascular surgery, cardiology consulted, appreciate recommendations -12/24 S/p ex lap with extensive expectations, 2 small bowel resections with primary anastomosis with surgery on 12/23 -s/p PICC and Permacath placement with vascular surgery on 12/27 -Extubated on 12/28, reintubated 12/31 for respiratory distress and extubated 01/08 -12/29 echocardiogram shows moderate concentric LVH, small pericardial effusion, transmitral Doppler flow pattern is grade 1 abnormal relaxation pattern, left- ventricular systolic function normal, LVEF 50 to 55%, no wall motion abnormalities. -01/01 CT abdomen/pelvis shows small pericardial effusion, mild coronary artery atherosclerotic calcification, small bilateral pleural effusions with associated volume loss, no convincing evidence of bowel obstruction or inflammation, postoperative changes from interval/recent midline laparotomy with a moderate amount of free fluid throughout the abdomen, small amount of dependent free air presumably postoperative -01/02 s/p ex lap, resection of perforated anastamosis, washout and abthera wound vac placement. -01/04 s/p ex lap with right hemicolectomy. -01/06 s/p exploratory laparotomy, Jejunal colonic anastomosis, Segmental small bowel resection. -s/p Vasopressor support with Levophed and vasopressin -Transitioned to HD from PD -HD per nephro, Epogen with HD -Strict NPO -TPN -Octreotide drip -NGT to LIWS -s/p IV antibiotics -Tobacco abuse cessation counseling -Trend CBC, BMP DVT/GI prophylaxis: PPI, heparin subcu, SCDs to bilateral lower extremities while in bed Disposition: IMCU Critical care statement The high probability of a clinically significant, sudden or life threatening deterioration of the [pulmonary, cardiac, neuro, renal] system(s) required my full and direct attention, intervention and personal management. The aggregate critical care time was [35] minutes. This time is in addition to time spent performing reported procedures but includes the following: [x] Data Review and interpretation [x] Patient assessment and monitoring of vital signs [x] Documentation [x] Medication orders and management History Interval history: This is a 60 YO Male with ESRD on PD, GERD, Crohn's Disease, Nicotine De pendence, HTN, Systolic CHF(EF 35%) who presented to the emergency department on 12/22 with complaints of abdominal pain which began shortly after eating fast food rated 10/10 which is periumbilical, constant, associated with fever, nausea and multiple sites of vomiting and self-reported inability to undergo PD. In the emergency room patient underwent a CT scan of the abdomen/pelvis which revealed evidence of partial small bowel obstruction, symptoms were consistent with bacterial peritonitis. Patient was admitted to the hospital service with sepsis, peritonitis, and small bowel obstruction with consults to general surgery, nephrology, infectious disease and [facility]. 12/23. Patient had temperature 101.2 F, tachycardia and elevated lactic acid on admission. Meet sepsis criteria. Started on IV antibiotics. ID has been consulted. Surgery consulted this a.m.-advised laparoscopy. He remains on NG tube connected to suction. 12/24. Patient was noted to have peritonitis yesterday and patient undergoing exploratory laparotomy. Patient remained intubated after procedure and is in ICU. Now on broad-spectrum antibiotics. ID on board. 12/25. Remains mechanically ventilated and sedated. Temp 103 Fahrenheit. Antibiotics broadened-ID added fluconazole and Flagyl. Blood cultures ordered. Plan to repeat CT abdomen tomorrow if not better. Surgery following. 12/26: Patient remains on mechanical ventilation on CMV tidal line 550, rate of 14, PEEP of 8 and 30% FiO2 and sedated on fentanyl 4 micrograms. Today we will remove his Jeffery and [facility] dropped his rate controlled him on CPAP. We will trend CBC given recent drop in H/H. 12/27: Patient remains intubated on CMV tidal volume 550, rate 12, PEEP 8 on 30% FiO2 at the time my examination. Patient's TPN will be changed to PPN. Pat ient's fentanyl drip will be changed to IV push fentanyl and have a permacath placed today and midline. Patient was placed on a spontaneous breathing trial was switched back to CMV prior to procedure. 12/28: Patient on fentanyl but awake and follows commands. At the time of my examination he was on a CPAP trial and is scheduled to receive HD today. s/o permacath and PICC placement with vascular yesterday. His blood culture grew Prevotella and addition to Streptococcus bovis. This evening Dr. Spicer attempted to extubate the patient and his heart rate went to the 180s. Stat EKG obtained and cardiology consulted. 12/29: Patient was started on amiodarone IV for A. fib RVR yesterday and today he is more rate controlled into the 70s and 80s. Patient was extubated yesterday and is currently on Ventimask. Patient will be transferred to [facility]. Patient continues to be n.p.o. with TPN and NG tube to LIS. He is hypokalemic today which was repleted. 12/30; patient was on IV amiodarone for treatment with RVR, rate is controlled. Patient was off oxygen. patient is n.p.o. and on TPN. Surgery is following the patient. 12/31: Patient was intubated overnight for respiratory distress and this morning on examination he was on assist control tidal volume 450, rate 20, PEEP 6, 100% FiO2 and RT was getting a ABG to adjust vent settings. Patient had a acute bump in WBC and per ID recommendations we will obtain a CT abdomen/pelvis if leukocytosis persist. Patient is on TPN and sedated with Levophed. Patient is also on vasopressor support with Levophed. Per surgery his ileus is resolving however will maintain OGT to LIWS. 01/01: Patient was started on a vasopressin yesterday late evening. This morning patient is on 20 mcg of Levophed and 0.03 vasopressin and sedated on 20 mcg of propofol. Patient WBC increased today and he is hypokalemic. We will treat hyperkalemia. Patient had a CT chest and abdomen/pelvis pending. The time examination total of 450, rate 20, PEEP of 6 and 35 percent FiO2. Per RN, Dr Pollock has stated that the patient will be returning to the OR today for likely anastomosis seen on CT abdomen/pelvis. 5: Patient noted, WBC improving, but noted to have anemia, will transfuse additional unit of Blood and repeat H/H. continue supportive care. 01/03: Continue to wean pressors, ABX PER ID, patient to return to OR today for washout and possible closure, CONTINUE TPN 01/04: Continues to show some improvement. Today is POD#12 s/p ex lap with extensive lysis of adhesions and two small bowel resections with primary anastamosis for SBO with necrotic segment small bowel. POD#3 s/p ex lap, resection of perforated anastamosis, washout and abthera wound vac placement. POD#1 s/p ex lap with right hemicolectomy. Surgery planning to take back to the OR on Saturday with the hope to anastamos ileum to transverse colon and close abdomen. keep NGT to suction. Pt in deep sedation due to open abdomen. Per ID - Continue IV Zosyn, renally dosed for Strep bacteremia treatment till 01/06/2021 -On TPN 01/05: Patient continues on HD, anticipate return to OR tomorrow for closure and anastemosis. Continues with deep sedation due to open abdomen 01/06: Continue supportive care, monitor pressures and electrolytes. He is post op Exploratory laparotomy, 2. Jejunal colonic anastomosis,3. Segmental small bowel resection and anastemosis closure today. Continue wound vac 15: Continue supportive care, Today is POD#15 s/p ex lap with extensive lysis of adhesions and two small bowel resections with primary anastamosis for SBO with necrotic segment small bowel. POD#6 s/p ex lap, resection of perforated anastamosis, washout and abthera wound vac placement. POD#4 s/p ex lap with right hemicolectomy. POD #1 exploratory laparotomy, 2. Jejunal colonic anastomosis,3. Segmental small bowel resection. Continue to monitor and corre ct electrolytes. Patient remains on fentanyl and TPN with lipids. Still hypoactive bowel sounds. 01/08: Patient now extubated, asked when he can go home, Still lethargic. Continue wound management, wound vac, Will need Rehab eval prior to discharge. 01/09: Patient remains on TPN, was started on labetalol drip per cardiology, patient had uncontrolled hypertension today however he cannot be given p.o. medications ileus resolves per surgery. Patient received hemodialysis today. NG tube remains to low intermittent suction. 01/10: Patient has some leukocytosis, slight hypokalemia and hyponatremia, metabolic acidosis. NG tube to LIWS, continue TPN. Patient will be downgraded to IMCU today. [facility] is working on placement. Will change frequency of hydralazine and discontinue labetalol drip. We will obtain a.m. BMP/mag/Phos and CBC. Infectious disease will like to start Zosyn if leukocytosis continues to worsen. 01/11: Patient leukocytosis has slightly improved potassium with in normal limits and other electrolytes are elevated but patient is scheduled for HD today. Remains on RA and A,A,Ox4. BP better controlled but remains elevated and we will increase clonidine dose. 01/12/2021; patient's blood pressure is better after dialysis and as needed IV medications and clonidine patch. Patient is followed by general surgery. Patient was alert and oriented and asked when he is going home. 01/13: Surgery is concerned about a leak at his anastamosis given increased output and will treat as controlled fistula and start an octreotide drip. And per surgery if he requires operative intervention will likely need to be left in discontinuity and eventual ileostomy as he has already failed two anastamoses. Patient still has tongue swelling and slurred speech. He is on Benadryl. 01/14: Patient's tongue swelling is improved, patient is alert and oriented, CAM ICU negative. Continue NG tube to low wall intermittent suction. Leukocytosis is improving. Hypomagnesemia resolved. Epogen with HD 01/15: Patient tongue swelling is much improved, bladder scan completed by bedside RN and he needed to be straight cathed. NGT output decreased. Leukocytosis improving. Patient has been having episodes of hypoglycemia during the day and he is on cyclic TPN, Lantus rescheduled to nightly and dosage decreased. Hospitalist Physical - Constitutional Vitals: Temp Pulse Resp BP Pulse Ox 98.0 F 85 23 126/62 96 01/15/21 04:00 01/15/21 11:00 01/15/21 11:00 01/15/21 11:00 01/15/21 11:00 General appearance: Present: no acute distress - EENT Eyes: Present: PERRL, EOM intact ENT: hearing intact, clear oral mucosa, dentition normal - Neck Neck: Present: normal ROM - Respiratory Respiratory effort: normal Respiratory: bilateral: CTA - Cardiovascular Rhythm: regular Heart Sounds: Present: S1 & S2. Absent: systolic murmur, diastolic murmur - Extremities Extremities: no ischemia, pulses intact, pulses symmetrical, normal temperature, normal color, Full ROM Peripheral Pulses: within normal limits - Abdominal General gastrointestinal: soft, non-tender, non-distended, hypoactive bowel sounds - Integumentary Integumentary: Present: warm, dry - Psychiatric Psychiatric: cooperative, agitated - Neurologic Neurologic: CNII-XII intact, no focal deficits, moves all extremities - Allied Health Allied health notes reviewed: nursing, RT, social work HEART Score - HEART Score Troponin: Troponin T 0.021 ng/mL (0.00-0.029) 12/22/20 14:38 Results - Labs CBC & Chem 7: 01/15/21 04:00 01/15/21 04:00 Labs: Laboratory Last Values WBC 15.9 K/mm3 (4.5-11.0) H 01/15/21 04:00 RBC 3.02 M/mm3 (3.65-5.03) L 01/15/21 04:00 Hgb 9.3 gm/dl (11.8-15.2) L 01/15/21 04:00 Hct 27.3 % (35.5-45.6) L 01/15/21 04:00 MCV 90 fl (84-94) 01/15/21 04:00 MCH 31 pg (28-32) 01/15/21 04:00 MCHC 34 % (32-34) 01/15/21 04:00 RDW 15.6 % (13.2-15.2) H 01/15/21 04:00 Plt Count 322 K/mm3 (140-440) 01/15/21 04:00 Lymph % (Auto) 4.4 % (13.4-35.0) L 01/13/21 03:45 Green % (Auto) 10.3 % (0.0-7.3) H 01/13/21 03:45 Eos % (Auto) 0.9 % (0.0-4.3) 01/13/21 03:45 Baso % (Auto) 0.2 % (0.0-1.8) 01/13/21 03:45 Lymph # (Auto) 0.8 K/mm3 (1.2-5.4) L 01/13/21 03:45 Green # (Auto) 1.8 K/mm3 (0.0-0.8) H 01/13/21 03:45 Eos # (Auto) 0.2 K/mm3 (0.0-0.4) 01/13/21 03:45 Baso # (Auto) 0.0 K/mm3 (0.0-0.1) 01/13/21 03:45 Add Manual Diff Complete 01/10/21 09:26 Total Counted 100 01/10/21 09:26 Seg Neutrophils % 84.2 % (40.0-70.0) H 01/13/21 03:45 Seg Neuts % (Manual) 95.0 % (40.0-70.0) H 01/10/21 09:26 Band Neutrophils % 1.0 % 01/10/21 09:26 Lymphocytes % (Manual) 3.0 % (13.4-35.0) L 01/10/21 09:26 Reactive Lymphs % (Man) 1.0 % 12/29/20 05:16 Monocytes % (Manual) 1.0 % (0.0-7.3) 01/10/21 09:26 Eosinophils % (Manual) 2.0 % (0.0-4.3) 12/29/20 05:16 Metamyelocytes % 2.0 % 12/29/20 05:16 Nucleated RBC % Not Reportable 01/10/21 09:26 Seg Neutrophils # 14.8 K/mm3 (1.8-7.7) H 01/13/21 03:45 Seg Neutrophils # Man 17.3 K/mm3 (1.8-7.7) H 01/10/21 09:26 Band Neutrophils # 0.2 K/mm3 01/10/21 09:26 Lymphocytes # (Manual) 0.5 K/mm3 (1.2-5.4) L 01/10/21 09:26 Abs React Lymphs (Man) 0.0 K/mm3 01/10/21 09:26 Monocytes # (Manual) 0.2 K/mm3 (0.0-0.8) 01/10/21 09:26 Eosinophils # (Manual) 0.0 K/mm3 (0.0-0.4) 01/10/21 09:26 Basophils # (Manual) 0.0 K/mm3 (0.0-0.1) 01/10/21 09:26 Metamyelocytes # 0.0 K/mm3 01/10/21 09:26 Myelocytes # 0.0 K/mm3 01/10/21 09:26 Promyelocytes # 0.0 K/mm3 01/10/21 09:26 Blast Cells # 0.0 K/mm3 01/10/21 09:26 WBC Morphology Not Reportable 01/10/21 09:26 Hypersegmented Neuts Not Reportable 01/10/21 09:26 Hyposegmented Neuts Not Reportable 01/10/21 09:26 Hypogranular Neuts Not Reportable 01/10/21 09:26 Smudge Cells Not Reportable 01/10/21 09:26 Toxic Granulation 1+ 01/10/21 09:26 Toxic Vacuolation Not Reportable 01/10/21 09:26 Dohle Bodies Not Reportable 01/10/21 09:26 Pelger-Huet Anomaly Not Reportable 01/10/21 09:26 Lamar Rods Not Reportable 01/10/21 09:26 Platelet Estimate Consistent w auto 01/10/21 09:26 Clumped Platelets Not Reportable 01/10/21 09:26 Plt Clumps, EDTA Not Reportable 01/10/21 09:26 Large Platelets Not Reportable 01/10/21 09:26 Giant Platelets Not Reportable 01/10/21 09:26 Platelet Satelliting Not Reportable 01/10/21 09:26 Plt Morphology Comment Not Reportable 01/10/21 09:26 RBC Morphology Not Reportable 01/10/21 09:26 Dimorphic RBCs Not Reportable 01/10/21 09:26 Polychromasia Not Reportable 01/10/21 09:26 Hypochromasia Not Reportable 01/10/21 09:26 Poikilocytosis Not Reportable 01/10/21 09:26 Anisocytosis 1+ 01/10/21 09:26 Microcytosis Not Reportable 01/10/21 09:26 Macrocytosis Not Reportable 01/10/21 09:26 Spherocytes Not Reportable 01/10/21 09:26 Pappenheimer Bodies Not Reportable 01/10/21 09:26 Sickle Cells Not Reportable 01/10/21 09:26 Target Cells Not Reportable 01/10/21 09:26 Tear Drop Cells Not Reportable 01/10/21 09:26 Ovalocytes Not Reportable 01/10/21 09:26 Helmet Cells Not Reportable 01/10/21 09:26 Washburn-Tivoli Bodies Not Reportable 01/10/21 09:26 Sulphur Rings Not Reportable 01/10/21 09:26 [place] Cells Not Reportable 01/10/21 09:26 Bite Cells Not Reportable 01/10/21 09:26 Crenated Cell Not Reportable 01/10/21 09:26 Elliptocytes Not Reportable 01/10/21 09:26 Acanthocytes (Spur) Not Reportable 01/10/21 09:26 Rouleaux Not Reportable 01/10/21 09:26 Hemoglobin C Crystals Not Reportable 01/10/21 09:26 Schistocytes Not Reportable 01/10/21 09:26 Malaria parasites Not Reportable 01/10/21 09:26 Lucas Bodies Not Reportable 01/10/21 09:26 Hem Pathologist Commnt No 01/10/21 09:26 PT 16.9 Sec. (12.2-14.9) H 01/01/21 12:45 INR 1.39 (0.87-1.13) H 01/01/21 12:45 APTT 25.1 Sec. (24.2-36.6) 12/22/20 14:38 ABG pH 7.345 pH Units (7.350-7.450) L 01/07/21 17:14 POC ABG pCO2 41.4 mmHg (32.0-48.0) 01/07/21 03:07 ABG pCO2 40.3 mm Hg 01/07/21 17:14 POC ABG pO2 94.5 mmHg (83-108) 01/07/21 03:07 ABG pO2 67.4 mm Hg (80.0-90.0) L 01/07/21 17:14 POC ABG HCO3 22.7 01/07/21 03:07 ABG HCO3 21.5 mmol/L (20.0-26.0) 01/07/21 17:14 ABG O2 Saturation 94.3 % (95.0-99.0) L 01/07/21 17:14 ABG O2 Content 11.6 (0.0-44) 01/07/21 17:14 POC ABG Base Excess -2.7 01/07/21 03:07 ABG Base Excess -3.9 mmol/L (-2.0-3.0) L 01/07/21 17:14 ABG Hemoglobin 8.9 gm/dl (14.0-18.0) L 01/07/21 17:14 ABG Oxyhemoglobin 96.6 (94-98) 01/07/21 03:07 ABG Carboxyhemoglobin 1.5 % (0.0-5.0) 01/07/21 17:14 ABG Methemoglobin 0.6 % (0.0-1.5) 01/07/21 17:14 ABG Sodium 135.6 mmol/L (136.0-145.0) L 01/07/21 03:07 ABG Potassium 4.0 mmol/L (3.40-4.50) 01/07/21 03:07 ABG Chloride 102.0 mmol/L (98-107) 01/07/21 03:07 ABG Glucose 181 mg/dL (65-95) H 01/07/21 03:07 Oxyhemoglobin 92.3 % (95.0-99.0) L 01/07/21 17:14 Carboxyhemoglobin 0.7 (0.5-1.5) 01/07/21 03:07 FiO2 21 % 01/07/21 17:14 FiO2 % 45.0 01/07/21 03:07 Sodium 136 mmol/L (137-145) L 01/15/21 04:00 Potassium 4.1 mmol/L (3.6-5.0) 01/15/21 04:00 Chloride 94.3 mmol/L (98-107) L 01/15/21 04:00 Carbon Dioxide 23 mmol/L (22-30) 01/15/21 04:00 Anion Gap 23 mmol/L 01/15/21 04:00 BUN 117 mg/dL (9-20) H 01/15/21 04:00 Creatinine 9.9 mg/dL (0.8-1.3) H 01/15/21 04:00 Estimated GFR 7 ml/min 01/15/21 04:00 BUN/Creatinine Ratio 12 % 01/15/21 04:00 Glucose 217 mg/dL (75-100) H 01/15/21 04:00 POC Glucose 221 mg/dL (70-105) H 01/15/21 05:29 Lactic Acid 1.10 mmol/L (0.7-2.0) 01/14/21 05:39 Calcium 8.3 mg/dL (8.4-10.2) L 01/15/21 04:00 Phosphorus 4.60 mg/dL (2.5-4.5) H 01/14/21 05:39 Magnesium 2.20 mg/dL (1.7-2.3) 01/14/21 05:39 Total Bilirubin 0.90 mg/dL (0.1-1.2) 01/08/21 04:34 AST 30 units/L (5-40) 01/08/21 04:34 ALT 29 units/L (7-56) 01/08/21 04:34 Alkaline Phosphatase 133 units/L (35-129) H 01/08/21 04:34 Ammonia 30.0 umol/L (25-60) 12/22/20 14:38 Troponin T 0.021 ng/mL (0.00-0.029) 12/22/20 14:38 Total Protein 5.4 g/dL (6.3-8.2) L 01/08/21 04:34 Albumin 1.9 g/dL (3.9-5) L 01/08/21 04:34 Albumin/Globulin Ratio 0.5 % 01/08/21 04:34 Triglycerides 77 mg/dL (2-149) 01/11/21 05:18 Lipase 41 units/L (13-60) 12/22/20 14:38 Procalcitonin > 200.00 ng/mL (<0.15) 12/24/20 15:06 TSH 1.470 mlU/mL (0.270-4.200) 12/28/20 19:44 Arterial Blood Glucose 181 mg/dL (65-95) H 01/07/21 03:07 Arterial Blood Ionized Calcium 4.3 mg/dL (4.6-5.3) L 01/07/21 03:07 Urine Color Yellow (Yellow) 12/22/20 18:53 Urine Turbidity Clear (Clear) 12/22/20 18:53 Urine pH 7.0 (5.0-7.0) 12/22/20 18:53 Ur Specific [place] 1.012 (1.003-1.030) 12/22/20 18:53 Urine Protein >500 mg/dL (Negative) 12/22/20 18:53 Urine Glucose (UA) Neg mg/dL (Negative) 12/22/20 18:53 Urine Ketones Neg mg/dL (Negative) 12/22/20 18:53 Urine Blood Neg (Negative) 12/22/20 18:53 Urine Nitrite Neg (Negative) 12/22/20 18:53 Urine Bilirubin Neg (Negative) 12/22/20 18:53 Urine Urobilinogen < 2.0 mg/dL (<2.0) 12/22/20 18:53 Ur Leukocyte Esterase Neg (Negative) 12/22/20 18:53 Urine WBC (Auto) < 1.0 /HPF (0.0-6.0) 12/22/20 18:53 Urine RBC (Auto) 1.0 /HPF (0.0-6.0) 12/22/20 18:53 Fluid Type Dialysate 12/22/20 Unknown Fluid Color Colorless 12/22/20 Unknown Fluid Appearance Cloudy 12/22/20 Unknown Fluid WBC 208 /mm3 12/22/20 Unknown Fluid RBC 45 /mm3 12/22/20 Unknown Fluid Seg Neutrophils 82.0 % 12/22/20 Unknown Fluid Lymphocytes 11.0 % 12/22/20 Unknown Fluid Reactive Lymphs 0 % 12/22/20 Unknown Fluid Monocytes 7.0 % 12/22/20 Unknown Fluid Eosinophils 0 % 12/22/20 Unknown Fluid Basophils 0 % 12/22/20 Unknown Random Vancomycin 13.7 ug/mL (0-40.0) 12/26/20 Unknown Digoxin 0.8 ng/mL (0.9-2.0) L 01/11/21 05:18 Hepatitis A IgM Ab Non-reactive (NonReactive) 12/23/20 11:38 Hep Bs Antigen Non-reactive (Negative) 12/23/20 11:38 Hep B Core IgM Ab Non-reactive (NonReactive) 12/23/20 11:38 Hepatitis C Antibody Non-reactive (NonReactive) 12/23/20 11:38 Blood Type A POSITIVE 01/06/21 07:10 Antibody Screen Negative 01/06/21 07:10 Crossmatch See Detail 01/06/21 07:10 Jeffery/IV: Voiding Method Incontinent Active Medications - Current Medications Current Medications: Generic Name Dose Route Start Last Admin Trade Name Freq PRN Reason Stop Dose Admin Acetaminophen 650 mg 12/31/20 15:30 12/31/20 15:13 Acetaminophen 650 Mg Rect Supp HI 650 mg Q6H PRN Administration Non Cardiac Pain or Temp>100.5 Clonidine HCl 0.2 mg 01/11/21 10:00 01/11/21 09:24 Clonidine Tts 0.2 Mg/24 Hr Patch TD 0.2 mg We THOMAS Administration Dextrose 50 ml 01/14/21 17:59 01/14/21 23:19 Dextrose 50% In Water (25gm) 50 Ml Syringe IV 50 ml Q30MIN PRN Administration Hypoglycemia Protocol Digoxin 0.125 mg 01/09/21 12:00 01/13/21 12:34 Digoxin 0.5 Mg/2 Ml Inj IV 0.125 mg Q48H THOMAS Administration Famotidine 10 mg 12/24/20 13:00 01/15/21 09:03 Famotidine 20 Mg/2 Ml Inj IV 10 mg BID THOMAS Administration Glycopyrrolate 0.2 mg 01/13/21 15:00 01/15/21 04:03 Glycopyrrolate 0.4 Mg/2 Ml Inj IV 01/16/21 14:59 0.2 mg Q6H THOMAS Administration Haloperidol Lactate 5 mg 12/29/20 14:16 01/09/21 01:41 Haloperidol Lactate 5 Mg/1 Ml Inj IV 5 mg Q12H PRN Administration Agitation Heparin Sodium (Porcine) 5,000 unit 12/24/20 10:00 01/15/21 09:03 Heparin 5,000 Unit/1 Ml Vial SUB-Q 5,000 unit Q12HR THOMAS Administration Hydralazine HCl 10 mg 01/10/21 14:00 01/15/21 09:05 Hydralazine 20 Mg/1 Ml Inj IV 10 mg Q4HR THOMAS Administration Hydromorphone HCl 0.25 mg 01/09/21 10:53 01/15/21 06:24 Hydromorphone 1 Mg/1 Ml Inj IV 0.25 mg Q6H PRN Administration Pain , Severe (7-10) Hydrophilic Ointment 1 applic 12/31/20 06:39 01/11/21 21:28 Lip Therapy Vaseline TP 1 applic Q2HR PRN Administration Dry Lips Sodium Chloride 100 mls @ 999 mls/hr 01/12/21 09:20 Nacl 0.9% IV [place]YLAND PRN Hypotension Octreotide Acetate 500 mcg/ 101 mls @ 5.05 mls/hr 01/13/21 11:00 01/15/21 03:22 Sodium Chloride IV 25 mcg/hr TITR THOMAS 5.05 mls/hr Administration Protocol 25 MCG/HR Piperacillin Sod/Tazobactam Sod 2.25 gm in 50 mls @ 100 mls/hr 01/13/21 12:00 01/15/21 03:18 Zosyn/Ns 2.25 Gm/50ml IV 100 mls/hr Q8H THOMAS Administration Protocol Amino Acids/Electrolytes/Dextrose 2,016 mls @ 0 mls/hr 01/15/21 20:00 Tpn Adult IV DAILY@1999 [facility] Protocol As Directed Insulin Human Lispro 0 unit 01/03/21 12:00 01/15/21 05:37 Insulin Lispro 100 Unit/Ml SUB-Q Not Given Q6HR [facility] Protocol Metoprolol Tartrate 5 mg 12/30/20 12:00 01/15/21 09:04 Metoprolol Tartrate 5 Mg/5 Ml Inj IV 5 mg Q4HR THOMAS Administration Multi-Ingred Cream/Lotion/Oil/Oint 1 applic 12/31/20 06:39 Mineral Oil/Petrolatum, White Ophth Oint 3.5 Gm OU Q4HR PRN Dry Eye(s) Scopolamine 1 each 01/15/21 11:00 Scopolamine Transdermal Patch 72 Hr TD Q3D THOMAS Sodium Chloride 10 ml 12/22/20 22:00 01/15/21 09:06 Sodium Chloride 0.9% 10 Ml Flush Syringe IV 10 ml BID THOMAS Administration Sodium Chloride 10 ml 12/22/20 19:42 01/09/21 17:27 Sodium Chloride 0.9% 10 Ml Flush Syringe IV 10 ml PRN PRN Administration LINE FLUSH Nutrition/Malnutrition Assess - Dietary Evaluation Nutrition/Malnutrition Findings: Nutrition Notes Start: 12/24/20 12:36 Freq: Status: Active Protocol: Document 01/15/21 10:31 LP (Rec: 01/15/21 10:34 LP [email or web address]) Nutrition Notes Initial or Follow up Reassessment Current Diagnosis CKD (stage V CKD),Sepsis, Hypertension,Heart Failure, Small Bowel Obstruction Other Pertinent Diagnosis Peritonitis, SBO s/p resection Current Diet 12 h Cyclic CPN 108/180/108 Labs/Tests Reviewed Pertinent Medications Reviewed Height 5 ft 7 in Weight 87 kg [place] Body Weight (kg) 67.27 BMI 30.0 Weight Status Overweight Subjective/Other Information TPN day 20. NGT to LIS continues. Percent of energy/protein needs met: 100%/100% Burn Absent Trauma Absent Current % PO Negligible Minimum of two criteria No #1 Nutrition Diagnosis Inadequate oral intake Diagnosis Progress(for reassessment Continues documentation) Is patient on ventilator? No Is Patient Ambulatory and/or Out of Bed No REE-([facility]-confined to bed) 1959.264 Kcal/Kg value to use for calculation 19 Approximate Energy Requirements Using 1653 kcal/Kg Calculation Used for Recommendations Kcal/kg Additional Notes Pro needs: 101-121 g/day (1.25 -1.5 g/kg AdjBW, 81kg) Fluid needs per MD. Nutrition Intervention Change Diet Order: Continue CPN Nutrition Support: 12 h Cyclic CPN at 108/180/108 ml/hr 10mEq K, MVI Kcal 1,674 Protein (gm) 121 Carbohydrates (gm) 350 Fat (gm) 0 Fluid (mL) 2,016 Fiber (gm) 0 Goal #1 Meet at least 75% of estimated energy and protein needs via CPN Anticipated Discharge Needs: 12 hour cyclic TPN Follow-Up By: 01/16/21 Additional Comments Labs in AM: BMP, Mg, Phos
--- NOTE | 2021-01-15 14:47 | Progress Note ---
Assessment and Plan Acute hypoxemic respiratory failure, on mechanical ventilatory support. Severe Sepsis Peritonitis Acute small-bowel obstruction with tissue necrosis. End-stage renal disease, on dialysis. Hypertension. Crohn's disease. Gastroesophageal reflux disease. Heart failure with reduced ejection fraction. Hyperkalemia. Anemia that is normocytic. Lactic acidosis. Oropharyngeal dysphagia (discussed case at length with Surgery & ID; will manage conservatively especially as HARIS in place and follow clinical;ly; he has been restarted on empiric AB's and an octreotide drip. We will keep the possibility of abscess / loculation formation and will re-image as clinically indicated) - continue octreotide - continue Robinul 0.2mg IV q6h - continue care as below otherwise; - follow clinically for S&S of infection re: fevers / WBC - continue total parenteral nutrition - prn vasopressors for target MAP > 65 mmHg - continue wound care per RN/WCN - continue to wean supplemental oxygen for target O2 sat's > 92% acutely - aspiration precautions - continue bronchodilators with pulmonary hygiene per RT - wean per pulmonary driven protocols otherwise - HD/UF per nephrology prescription for toxin and volume control - avoid nephrotoxins, renally dose all medications - continue accuchecks with glycemic control per SSI (While critically ill target blood glucose of 140-180 mg/dL; avoid hypoglycemia) - sedation prn for target RASS 0 to -1 - continue to avoid benzodiazepine's, reduce the possibility of delirium - complete AB's per ID rec's - prn analgesia per CPOT score - Maintenance of sleep-wake cycle, avoid delirium - enteral nutritional support at goal rate as tolerated (once cleared by surgeon) - G.I. & VTE prophylaxis - PT/OT/ROM exercises - continue mobility protocols for pressure ulcer prophylaxis - Monitor hemodynamics closely - continue other care per attending / other consultants - discharge planning ongoing concurrently .... Re-evaluate in am & prn CONDITION: FAIR PROGNOSIS: GUARDED CODE STATUS: FULL CODE I have spent ( >35 ) minutes with the patient w/ >50% of the time spent counseling and/or coordinating care for this patient. Counseling topics and/or how time was spent coordinating patient's care is outlined in the impression and plan above. Subjective Date of service: 01/15/21 Principal diagnosis: Ac hypoxemic resp failure; Severe Sepsis; Peritonitis; Acute SBO; ESRD; CHF Interval history: LATE ENTRY NOTE FOR DOS 01/14/21 Patient is seen today for: Ac hypoxemic resp failure; Severe Sepsis; Peritonitis; Acute SBO; ESRD on Dialysis; HTN; Crohn's disease; HFrEF Seen and examined at bedside; 24hour events reviewed; nursing and respiratory care staff consulted; no adverse overnight events reported to me; resting in bed; remains on supplemental oxygen; no new issues respiratory-paez Objective Vital Signs - 12hr 01/15/21 01/15/21 01/15/21 03:00 04:00 04:30 Temperature 98.0 F Pulse Rate 72 73 84 Pulse Rate [ 84 From Monitor] Respiratory 14 13 Rate Blood Pressure 152/72 158/68 O2 Sat by Pulse 97 97 Oximetry 01/15/21 01/15/21 01/15/21 05:00 05:58 05:59 Temperature Pulse Rate 82 86 86 Pulse Rate [ From Monitor] Respiratory 13 Rate Blood Pressure 167/75 155/77 150/77 O2 Sat by Pulse 97 Oximetry 01/15/21 01/15/21 01/15/21 06:00 06:24 06:54 Temperature Pulse Rate 85 Pulse Rate [ From Monitor] Respiratory 16 19 17 Rate Blood Pressure 148/81 O2 Sat by Pulse 98 Oximetry 01/15/21 01/15/21 01/15/21 07:00 08:00 09:00 Temperature 98.1 F Pulse Rate 81 89 81 Pulse Rate [ From Monitor] Respiratory 17 13 17 Rate Blood Pressure 139/60 134/60 138/58 O2 Sat by Pulse 96 98 97 Oximetry 01/15/21 01/15/21 01/15/21 09:04 09:05 10:00 Temperature Pulse Rate 85 85 71 Pulse Rate [ From Monitor] Respiratory 15 Rate Blood Pressure 138/58 138/58 133/50 O2 Sat by Pulse 99 Oximetry 01/15/21 01/15/21 01/15/21 11:00 12:00 12:07 Temperature 98.0 F Pulse Rate 85 77 74 Pulse Rate [ From Monitor] Respiratory 23 17 Rate Blood Pressure 126/62 123/62 123/62 O2 Sat by Pulse 96 96 Oximetry 01/15/21 01/15/21 13:00 13:39 Temperature Pulse Rate 74 75 Pulse Rate [ From Monitor] Respiratory 13 Rate Blood Pressure 153/70 135/61 O2 Sat by Pulse 92 Oximetry Constitutional: no acute distress, other (elderly male with milldy increased respiratory effort) Eyes: non-icteric ENT: oropharynx moist, oropharyngeal exudate pre (improved), other (macroglossia improved) Neck: supple, no lymphadenopathy, no JVD Effort: normal Ascultation: Bilateral: diminished breath sounds, rhonchi Percussion: Bilateral: not dull Cardiovascular: regular rate and rhythm Gastrointestinal: hypoactive bowel sounds, soft, non-tender, non-distended (protuberant), other (Midline abdominal incision ) Integumentary: other (Midline abdominal incision ) Extremities: no cyanosis, no edema, pulses normal, no ischemia or petechiae Neurologic: non-focal exam (grossly), pupils equal and round, CN II-XII normal, motor strength normal and (sedated) Psychiatric: mood appropriate, affect normal CBC and BMP: 01/15/21 04:00 01/15/21 04:00 ABG, PT/INR, D-dimer: ABG ABG pH 7.345 pH Units (7.350-7.450) L 01/07/21 17:14 POC ABG pCO2 41.4 mmHg (32.0-48.0) 01/07/21 03:07 ABG pCO2 40.3 mm Hg 01/07/21 17:14 POC ABG pO2 94.5 mmHg (83-108) 01/07/21 03:07 ABG pO2 67.4 mm Hg (80.0-90.0) L 01/07/21 17:14 POC ABG HCO3 22.7 01/07/21 03:07 ABG O2 Saturation 94.3 % (95.0-99.0) L 01/07/21 17:14 PT/INR, D-dimer PT 16.9 Sec. (12.2-14.9) H 01/01/21 12:45 INR 1.39 (0.87-1.13) H 01/01/21 12:45 Abnormal lab findings: Abnormal Labs 12/22/20 12/22/20 12/22/20 14:38 14:38 14:38 WBC RBC Hgb 11.2 L Hct 35.0 L MCV MCHC RDW 16.7 H Plt Count Lymph % (Auto) [place] % (Auto) Lymph # (Auto) [place] # (Auto) Seg Neutrophils % Seg Neuts % (Manual) 94.0 H Lymphocytes % (Manual) 5.0 L Monocytes % (Manual) Seg Neutrophils # Seg Neutrophils # Man Lymphocytes # (Manual) 0.3 L Monocytes # (Manual) PT INR ABG pH POC ABG pCO2 POC ABG pO2 ABG pO2 ABG HCO3 ABG O2 Saturation ABG Base Excess ABG Hemoglobin ABG Oxyhemoglobin ABG Sodium ABG Potassium ABG Chloride ABG Glucose Oxyhemoglobin Sodium Potassium Chloride Carbon Dioxide BUN 58 H Creatinine 13.2 H Glucose 113 H POC Glucose Lactic Acid 3.60 H* Calcium Phosphorus Magnesium Total Bilirubin 1.30 H AST ALT Alkaline Phosphatase 155 H Total Protein Albumin Triglycerides Arterial Blood Glucose Arterial Blood Ionized Calcium Digoxin Crossmatch 12/22/20 12/22/20 12/23/20 16:26 17:47 05:22 WBC RBC Hgb Hct MCV MCHC RDW Plt Count Lymph % (Auto) [place] % (Auto) Lymph # (Auto) [place] # (Auto) Seg Neutrophils % Seg Neuts % (Manual) Lymphocytes % (Manual) Monocytes % (Manual) Seg Neutrophils # Seg Neutrophils # Man Lymphocytes # (Manual) Monocytes # (Manual) PT INR ABG pH POC ABG pCO2 POC ABG pO2 ABG pO2 ABG HCO3 ABG O2 Saturation ABG Base Excess ABG Hemoglobin ABG Oxyhemoglobin ABG Sodium ABG Potassium ABG Chloride ABG Glucose Oxyhemoglobin Sodium Potassium Chloride Carbon Dioxide BUN Creatinine Glucose POC Glucose Lactic Acid 2.80 H* 3.10 H* 2.30 H* Calcium Phosphorus Magnesium Total Bilirubin AST ALT Alkaline Phosphatase Total Protein Albumin Triglycerides Arterial Blood Glucose Arterial Blood Ionized Calcium Digoxin Crossmatch 12/23/20 12/23/20 12/23/20 05:22 05:22 06:35 WBC 12.1 H RBC Hgb 11.0 L Hct 33.7 L MCV MCHC RDW 16.9 H Plt Count Lymph % (Auto) [place] % (Auto) Lymph # (Auto) [place] # (Auto) Seg Neutrophils % Seg Neuts % (Manual) 93.0 H Lymphocytes % (Manual) 1.0 L Monocytes % (Manual) Seg Neutrophils # Seg Neutrophils # Man 11.3 H Lymphocytes # (Manual) 0.1 L Monocytes # (Manual) PT INR ABG pH POC ABG pCO2 POC ABG pO2 ABG pO2 ABG HCO3 ABG O2 Saturation ABG Base Excess ABG Hemoglobin ABG Oxyhemoglobin ABG Sodium ABG Potassium ABG Chloride ABG Glucose Oxyhemoglobin Sodium Potassium 5.7 H D Chloride Carbon Dioxide BUN 73 H Creatinine 14.2 H Glucose POC Glucose Lactic Acid 2.30 H* Calcium 7.9 L Phosphorus Magnesium Total Bilirubin 1.40 H AST 119 H ALT 130 H Alkaline Phosphatase 183 H Total Protein 6.1 L Albumin 3.6 L Triglycerides Arterial Blood Glucose Arterial Blood Ionized Calcium Digoxin Crossmatch 12/23/20 12/23/20 12/23/20 11:40 13:53 16:47 WBC RBC Hgb 10.0 L Hct 30.4 L MCV MCHC RDW Plt Count Lymph % (Auto) [place] % (Auto) Lymph # (Auto) [place] # (Auto) Seg Neutrophils % Seg Neuts % (Manual) Lymphocytes % (Manual) Monocytes % (Manual) Seg Neutrophils # Seg Neutrophils # Man Lymphocytes # (Manual) Monocytes # (Manual) PT INR ABG pH POC ABG pCO2 POC ABG pO2 137.5 H ABG pO2 ABG HCO3 ABG O2 Saturation ABG Base Excess ABG Hemoglobin 9.7 L ABG Oxyhemoglobin ABG Sodium 134.1 L ABG Potassium 6.6 H ABG Chloride ABG Glucose 103 H Oxyhemoglobin Sodium Potassium Chloride Carbon Dioxide BUN Creatinine Glucose POC Glucose Lactic Acid Calcium Phosphorus Magnesium Total Bilirubin AST ALT Alkaline Phosphatase Total Protein Albumin Triglycerides Arterial Blood Glucose 103 H Arterial Blood Ionized Calcium 3.8 L Digoxin Crossmatch See Detail 12/23/20 12/23/20 12/24/20 20:35 20:40 01:20 WBC RBC Hgb Hct MCV MCHC RDW Plt Count Lymph % (Auto) [place] % (Auto) Lymph # (Auto) [place] # (Auto) Seg Neutrophils % Seg Neuts % (Manual) Lymphocytes % (Manual) Monocytes % (Manual) Seg Neutrophils # Seg Neutrophils # Man Lymphocytes # (Manual) Monocytes # (Manual) PT INR ABG pH 7.252 L POC ABG pCO2 POC ABG pO2 ABG pO2 50.1 L ABG HCO3 ABG O2 Saturation 81.1 L ABG Base Excess -5.9 L ABG Hemoglobin 12.1 L ABG Oxyhemoglobin ABG Sodium ABG Potassium ABG Chloride ABG Glucose Oxyhemoglobin 78.6 L Sodium 134 L Potassium 6.9 H* D 6.3 H* Chloride Carbon Dioxide 18 L 20 L BUN 87 H 91 H Creatinine 15.3 H 15.3 H Glucose 103 H POC Glucose Lactic Acid Calcium 6.9 L 7.5 L Phosphorus Magnesium Total Bilirubin AST ALT Alkaline Phosphatase Total Protein Albumin Triglycerides Arterial Blood Glucose Arterial Blood Ionized Calcium Digoxin Crossmatch 12/24/20 12/24/20 12/24/20 04:00 10:29 10:29 WBC RBC 3.49 L Hgb 10.5 L Hct 31.2 L MCV MCHC RDW 17.5 H Plt Count 124 L Lymph % (Auto) 3.7 L [place] % (Auto) 9.8 H Lymph # (Auto) 0.2 L [place] # (Auto) Seg Neutrophils % 85.9 H Seg Neuts % (Manual) Lymphocytes % (Manual) Monocytes % (Manual) Seg Neutrophils # Seg Neutrophils # Man Lymphocytes # (Manual) Monocytes # (Manual) PT INR ABG pH POC ABG pCO2 28.1 L POC ABG pO2 ABG pO2 ABG HCO3 ABG O2 Saturation ABG Base Excess ABG Hemoglobin ABG Oxyhemoglobin ABG Sodium 133.9 L ABG Potassium 5.3 H ABG Chloride 108.0 H ABG Glucose Oxyhemoglobin Sodium Potassium 5.6 H Chloride Carbon Dioxide 19 L BUN 99 H Creatinine 16.9 H Glucose 52 L POC Glucose Lactic Acid Calcium 7.6 L Phosphorus Magnesium Total Bilirubin 3.50 H AST 67 H ALT 71 H Alkaline Phosphatase Total Protein 3.5 L D Albumin 2.1 L Triglycerides Arterial Blood Glucose Arterial Blood Ionized Calcium 4.0 L Digoxin Crossmatch 12/25/20 12/25/20 12/25/20 03:33 04:00 04:00 WBC 3.8 L RBC 2.90 L Hgb 8.6 L Hct 25.7 L MCV MCHC RDW 16.7 H Plt Count 113 L Lymph % (Auto) [place] % (Auto) Lymph # (Auto) [place] # (Auto) Seg Neutrophils % Seg Neuts % (Manual) Lymphocytes % (Manual) Monocytes % (Manual) Seg Neutrophils # Seg Neutrophils # Man Lymphocytes # (Manual) Monocytes # (Manual) PT INR ABG pH 7.544 H POC ABG pCO2 28.2 L POC ABG pO2 62.8 L ABG pO2 ABG HCO3 ABG O2 Saturation ABG Base Excess ABG Hemoglobin 9.3 L ABG Oxyhemoglobin 93.0 L ABG Sodium 130.3 L ABG Potassium ABG Chloride ABG Glucose 97 H Oxyhemoglobin Sodium Potassium Chloride Carbon Dioxide BUN 62 H Creatinine 11.4 H Glucose POC Glucose Lactic Acid Calcium 7.7 L Phosphorus 5.00 H Magnesium Total Bilirubin AST ALT Alkaline Phosphatase Total Protein Albumin Triglycerides Arterial Blood Glucose 97 H Arterial Blood Ionized Calcium 3.9 L Digoxin Crossmatch 12/26/20 12/26/20 12/27/20 04:46 Unknown 03:40 WBC 4.1 L RBC 2.61 L Hgb 7.8 L Hct 23.4 L MCV MCHC RDW 17.1 H Plt Count 119 L Lymph % (Auto) 5.3 L [place] % (Auto) 10.6 H Lymph # (Auto) 0.2 L [place] # (Auto) Seg Neutrophils % 78.8 H Seg Neuts % (Manual) Lymphocytes % (Manual) Monocytes % (Manual) Seg Neutrophils # Seg Neutrophils # Man Lymphocytes # (Manual) Monocytes # (Manual) PT INR ABG pH 7.333 L 7.332 L POC ABG pCO2 POC ABG pO2 ABG pO2 ABG HCO3 26.9 H ABG O2 Saturation ABG Base Excess -2.4 L ABG Hemoglobin 6.8 L 7.2 L ABG Oxyhemoglobin ABG Sodium ABG Potassium ABG Chloride ABG Glucose Oxyhemoglobin 93.0 L 93.1 L Sodium Potassium Chloride Carbon Dioxide BUN Creatinine Glucose POC Glucose Lactic Acid Calcium Phosphorus Magnesium Total Bilirubin AST ALT Alkaline Phosphatase Total Protein Albumin Triglycerides Arterial Blood Glucose Arterial Blood Ionized Calcium Digoxin Crossmatch 12/27/20 12/27/20 12/27/20 06:40 06:40 11:22 WBC 4.4 L RBC 2.49 L Hgb 7.4 L Hct 22.4 L MCV MCHC RDW 17.1 H Plt Count 111 L Lymph % (Auto) 6.7 L [place] % (Auto) 12.6 H Lymph # (Auto) 0.3 L [place] # (Auto) Seg Neutrophils % 77.6 H Seg Neuts % (Manual) Lymphocytes % (Manual) Monocytes % (Manual) Seg Neutrophils # Seg Neutrophils # Man Lymphocytes # (Manual) Monocytes # (Manual) PT INR ABG pH POC ABG pCO2 POC ABG pO2 ABG pO2 ABG HCO3 ABG O2 Saturation ABG Base Excess ABG Hemoglobin ABG Oxyhemoglobin ABG Sodium ABG Potassium ABG Chloride ABG Glucose Oxyhemoglobin Sodium Potassium Chloride Carbon Dioxide BUN 64 H Creatinine 9.8 H Glucose 147 H POC Glucose 134 H Lactic Acid Calcium 8.3 L Phosphorus 5.00 H Magnesium Total Bilirubin 3.70 H AST 72 H ALT Alkaline Phosphatase 142 H Total Protein 5.1 L D Albumin 2.9 L Triglycerides Arterial Blood Glucose Arterial Blood Ionized Calcium Digoxin Crossmatch 12/27/20 12/27/20 12/28/20 17:29 23:31 03:09 WBC RBC Hgb Hct MCV MCHC RDW Plt Count Lymph % (Auto) [place] % (Auto) Lymph # (Auto) [place] # (Auto) Seg Neutrophils % Seg Neuts % (Manual) Lymphocytes % (Manual) Monocytes % (Manual) Seg Neutrophils # Seg Neutrophils # Man Lymphocytes # (Manual) Monocytes # (Manual) PT INR ABG pH 7.474 H POC ABG pCO2 POC ABG pO2 ABG pO2 ABG HCO3 ABG O2 Saturation ABG Base Excess ABG Hemoglobin 7.8 L ABG Oxyhemoglobin ABG Sodium ABG Potassium ABG Chloride ABG Glucose Oxyhemoglobin Sodium Potassium Chloride Carbon Dioxide BUN Creatinine Glucose POC Glucose 121 H 131 H Lactic Acid Calcium Phosphorus Magnesium Total Bilirubin AST ALT Alkaline Phosphatase Total Protein Albumin Triglycerides Arterial Blood Glucose Arterial Blood Ionized Calcium Digoxin Crossmatch 12/28/20 12/28/20 12/28/20 05:37 05:40 05:40 WBC 4.3 L RBC 2.40 L Hgb 7.2 L Hct 21.5 L MCV MCHC RDW 17.4 H Plt Count 112 L Lymph % (Auto) 6.5 L [place] % (Auto) 16.7 H Lymph # (Auto) 0.3 L [place] # (Auto) Seg Neutrophils % 71.1 H Seg Neuts % (Manual) Lymphocytes % (Manual) Monocytes % (Manual) Seg Neutrophils # Seg Neutrophils # Man Lymphocytes # (Manual) Monocytes # (Manual) PT INR ABG pH POC ABG pCO2 POC ABG pO2 ABG pO2 ABG HCO3 ABG O2 Saturation ABG Base Excess ABG Hemoglobin ABG Oxyhemoglobin ABG Sodium ABG Potassium ABG Chloride ABG Glucose Oxyhemoglobin Sodium Potassium Chloride Carbon Dioxide BUN 85 H Creatinine 11.5 H Glucose 132 H POC Glucose 121 H Lactic Acid Calcium 8.2 L Phosphorus Magnesium 2.40 H Total Bilirubin 3.80 H AST 70 H ALT Alkaline Phosphatase 176 H Total Protein 5.0 L Albumin 2.9 L Triglycerides Arterial Blood Glucose Arterial Blood Ionized Calcium Digoxin Crossmatch 12/28/20 12/28/20 12/28/20 11:34 15:00 17:35 WBC RBC Hgb Hct MCV MCHC RDW Plt Count Lymph % (Auto) [place] % (Auto) Lymph # (Auto) [place] # (Auto) Seg Neutrophils % Seg Neuts % (Manual) Lymphocytes % (Manual) Monocytes % (Manual) Seg Neutrophils # Seg Neutrophils # Man Lymphocytes # (Manual) Monocytes # (Manual) PT INR ABG pH 7.461 H POC ABG pCO2 POC ABG pO2 72.2 L ABG pO2 ABG HCO3 ABG O2 Saturation ABG Base Excess ABG Hemoglobin 8.2 L ABG Oxyhemoglobin 93.6 L ABG Sodium 134.1 L ABG Potassium 3.2 L ABG Chloride ABG Glucose 135 H Oxyhemoglobin Sodium Potassium Chloride Carbon Dioxide BUN Creatinine Glucose POC Glucose 137 H 144 H Lactic Acid Calcium Phosphorus Magnesium Total Bilirubin AST ALT Alkaline Phosphatase Total Protein Albumin Triglycerides Arterial Blood Glucose 135 H Arterial Blood Ionized Calcium 4.4 L Digoxin Crossmatch 12/28/20 12/28/20 12/29/20 19:44 Unknown 00:21 WBC RBC Hgb Hct MCV MCHC RDW Plt Count Lymph % (Auto) [place] % (Auto) Lymph # (Auto) [place] # (Auto) Seg Neutrophils % Seg Neuts % (Manual) Lymphocytes % (Manual) Monocytes % (Manual) Seg Neutrophils # Seg Neutrophils # Man Lymphocytes # (Manual) Monocytes # (Manual) PT INR ABG pH 7.474 H POC ABG pCO2 POC ABG pO2 ABG pO2 ABG HCO3 ABG O2 Saturation ABG Base Excess ABG Hemoglobin 7.8 L ABG Oxyhemoglobin ABG Sodium 133.2 L ABG Potassium ABG Chloride ABG Glucose 139 H Oxyhemoglobin Sodium 135 L Potassium Chloride 96.6 L Carbon Dioxide BUN 47 H Creatinine 7.4 H Glucose 130 H POC Glucose 142 H Lactic Acid Calcium 8.3 L Phosphorus Magnesium Total Bilirubin AST ALT Alkaline Phosphatase Total Protein Albumin Triglycerides Arterial Blood Glucose 139 H Arterial Blood Ionized Calcium 4.3 L Digoxin Crossmatch 12/29/20 12/29/20 12/29/20 05:16 05:16 05:26 WBC RBC 2.53 L Hgb 7.7 L Hct 22.8 L MCV MCHC RDW 17.0 H Plt Count 130 L Lymph % (Auto) [place] % (Auto) Lymph # (Auto) [place] # (Auto) Seg Neutrophils % Seg Neuts % (Manual) 79.0 H Lymphocytes % (Manual) 9.0 L Monocytes % (Manual) Seg Neutrophils # Seg Neutrophils # Man Lymphocytes # (Manual) 0.6 L Monocytes # (Manual) PT INR ABG pH POC ABG pCO2 POC ABG pO2 ABG pO2 ABG HCO3 ABG O2 Saturation ABG Base Excess ABG Hemoglobin ABG Oxyhemoglobin ABG Sodium ABG Potassium ABG Chloride ABG Glucose Oxyhemoglobin Sodium Potassium 3.4 L Chloride 96.6 L Carbon Dioxide BUN 59 H Creatinine 8.3 H Glucose 127 H POC Glucose 141 H Lactic Acid Calcium 8.2 L Phosphorus Magnesium Total Bilirubin 3.00 H AST 88 H ALT Alkaline Phosphatase 188 H Total Protein 5.1 L Albumin 2.8 L Triglycerides Arterial Blood Glucose Arterial Blood Ionized Calcium Digoxin Crossmatch 12/29/20 12/29/20 12/29/20 11:33 17:29 23:22 WBC RBC Hgb Hct MCV MCHC RDW Plt Count Lymph % (Auto) [place] % (Auto) Lymph # (Auto) [place] # (Auto) Seg Neutrophils % Seg Neuts % (Manual) Lymphocytes % (Manual) Monocytes % (Manual) Seg Neutrophils # Seg Neutrophils # Man Lymphocytes # (Manual) Monocytes # (Manual) PT INR ABG pH POC ABG pCO2 POC ABG pO2 ABG pO2 ABG HCO3 ABG O2 Saturation ABG Base Excess ABG Hemoglobin ABG Oxyhemoglobin ABG Sodium ABG Potassium ABG Chloride ABG Glucose Oxyhemoglobin Sodium Potassium Chloride Carbon Dioxide BUN Creatinine Glucose POC Glucose 144 H 130 H 117 H Lactic Acid Calcium Phosphorus Magnesium Total Bilirubin AST ALT Alkaline Phosphatase Total Protein Albumin Triglycerides Arterial Blood Glucose Arterial Blood Ionized Calcium Digoxin Crossmatch 12/30/20 12/30/20 12/30/20 05:23 08:15 09:00 WBC RBC Hgb Hct MCV MCHC RDW Plt Count Lymph % (Auto) [place] % (Auto) Lymph # (Auto) [place] # (Auto) Seg Neutrophils % Seg Neuts % (Manual) Lymphocytes % (Manual) Monocytes % (Manual) Seg Neutrophils # Seg Neutrophils # Man Lymphocytes # (Manual) Monocytes # (Manual) PT INR ABG pH POC ABG pCO2 POC ABG pO2 ABG pO2 ABG HCO3 ABG O2 Saturation ABG Base Excess ABG Hemoglobin ABG Oxyhemoglobin ABG Sodium ABG Potassium ABG Chloride ABG Glucose Oxyhemoglobin Sodium 135 L Potassium Chloride 95.9 L Carbon Dioxide BUN 85 H Creatinine 10.6 H Glucose 128 H POC Glucose 135 H 127 H Lactic Acid Calcium 8.3 L Phosphorus Magnesium Total Bilirubin 2.40 H AST 85 H ALT Alkaline Phosphatase 216 H Total Protein 5.3 L Albumin 2.6 L Triglycerides 155 H Arterial Blood Glucose Arterial Blood Ionized Calcium Digoxin Crossmatch 12/30/20 12/30/20 12/30/20 09:00 11:53 15:49 WBC RBC 2.61 L Hgb 7.8 L Hct 23.7 L MCV MCHC RDW 17.3 H Plt Count Lymph % (Auto) [place] % (Auto) Lymph # (Auto) [place] # (Auto) Seg Neutrophils % Seg Neuts % (Manual) Lymphocytes % (Manual) Monocytes % (Manual) Seg Neutrophils # Seg Neutrophils # Man Lymphocytes # (Manual) Monocytes # (Manual) PT INR ABG pH POC ABG pCO2 POC ABG pO2 ABG pO2 ABG HCO3 ABG O2 Saturation ABG Base Excess ABG Hemoglobin ABG Oxyhemoglobin ABG Sodium ABG Potassium ABG Chloride ABG Glucose Oxyhemoglobin Sodium Potassium Chloride Carbon Dioxide BUN Creatinine Glucose POC Glucose 155 H 146 H Lactic Acid Calcium Phosphorus Magnesium Total Bilirubin AST ALT Alkaline Phosphatase Total Protein Albumin Triglycerides Arterial Blood Glucose Arterial Blood Ionized Calcium Digoxin Crossmatch 12/30/20 12/30/20 12/31/20 17:53 23:45 03:56 WBC RBC Hgb Hct MCV MCHC RDW Plt Count Lymph % (Auto) [place] % (Auto) Lymph # (Auto) [place] # (Auto) Seg Neutrophils % Seg Neuts % (Manual) Lymphocytes % (Manual) Monocytes % (Manual) Seg Neutrophils # Seg Neutrophils # Man Lymphocytes # (Manual) Monocytes # (Manual) PT INR ABG pH POC ABG pCO2 POC ABG pO2 49.4 L ABG pO2 ABG HCO3 ABG O2 Saturation ABG Base Excess ABG Hemoglobin 10.3 L ABG Oxyhemoglobin 84.2 L ABG Sodium 133.1 L ABG Potassium ABG Chloride ABG Glucose 173 H Oxyhemoglobin Sodium Potassium Chloride Carbon Dioxide BUN Creatinine Glucose POC Glucose 139 H 173 H Lactic Acid Calcium Phosphorus Magnesium Total Bilirubin AST ALT Alkaline Phosphatase Total Protein Albumin Triglycerides Arterial Blood Glucose 173 H Arterial Blood Ionized Calcium Digoxin Crossmatch 12/31/20 12/31/20 12/31/20 05:07 06:51 06:51 WBC 20.3 H RBC 3.32 L Hgb 9.8 L Hct 30.3 L D MCV MCHC RDW 17.3 H Plt Count Lymph % (Auto) [place] % (Auto) Lymph # (Auto) [place] # (Auto) Seg Neutrophils % Seg Neuts % (Manual) 87.0 H Lymphocytes % (Manual) 10.0 L Monocytes % (Manual) Seg Neutrophils # Seg Neutrophils # Man 17.7 H Lymphocytes # (Manual) Monocytes # (Manual) PT INR ABG pH POC ABG pCO2 POC ABG pO2 ABG pO2 ABG HCO3 ABG O2 Saturation ABG Base Excess ABG Hemoglobin ABG Oxyhemoglobin ABG Sodium ABG Potassium ABG Chloride ABG Glucose Oxyhemoglobin Sodium Potassium 5.2 H D Chloride Carbon Dioxide BUN 62 H Creatinine 8.4 H Glucose 116 H POC Glucose 120 H Lactic Acid Calcium Phosphorus Magnesium 1.60 L Total Bilirubin AST ALT Alkaline Phosphatase Total Protein Albumin Triglycerides Arterial Blood Glucose Arterial Blood Ionized Calcium Digoxin Crossmatch 12/31/20 12/31/20 12/31/20 09:38 12:19 12:22 WBC RBC Hgb Hct MCV MCHC RDW Plt Count Lymph % (Auto) [place] % (Auto) Lymph # (Auto) [place] # (Auto) Seg Neutrophils % Seg Neuts % (Manual) Lymphocytes % (Manual) Monocytes % (Manual) Seg Neutrophils # Seg Neutrophils # Man Lymphocytes # (Manual) Monocytes # (Manual) PT INR ABG pH POC ABG pCO2 POC ABG pO2 ABG pO2 354.0 H ABG HCO3 ABG O2 Saturation 99.6 H ABG Base Excess ABG Hemoglobin 9.1 L ABG Oxyhemoglobin ABG Sodium ABG Potassium ABG Chloride ABG Glucose Oxyhemoglobin Sodium Potassium 5.2 H Chloride Carbon Dioxide BUN Creatinine Glucose POC Glucose 132 H Lactic Acid Calcium Phosphorus Magnesium Total Bilirubin AST ALT Alkaline Phosphatase Total Protein Albumin Triglycerides Arterial Blood Glucose Arterial Blood Ionized Calcium Digoxin Crossmatch 12/31/20 01/01/21 01/01/21 23:23 03:03 05:04 WBC RBC Hgb Hct MCV MCHC RDW Plt Count Lymph % (Auto) [place] % (Auto) Lymph # (Auto) [place] # (Auto) Seg Neutrophils % Seg Neuts % (Manual) Lymphocytes % (Manual) Monocytes % (Manual) Seg Neutrophils # Seg Neutrophils # Man Lymphocytes # (Manual) Monocytes # (Manual) PT INR ABG pH POC ABG pCO2 POC ABG pO2 79.6 L ABG pO2 ABG HCO3 ABG O2 Saturation ABG Base Excess ABG Hemoglobin 9.2 L ABG Oxyhemoglobin ABG Sodium 131.6 L ABG Potassium 5.8 H ABG Chloride ABG Glucose 177 H Oxyhemoglobin Sodium Potassium Chloride Carbon Dioxide BUN Creatinine Glucose POC Glucose 174 H 167 H Lactic Acid Calcium Phosphorus Magnesium Total Bilirubin AST ALT Alkaline Phosphatase Total Protein Albumin Triglycerides Arterial Blood Glucose 177 H Arterial Blood Ionized Calcium Digoxin Crossmatch 01/01/21 01/01/21 01/01/21 07:31 07:31 11:31 WBC 26.1 H RBC 2.95 L Hgb 8.6 L Hct 27.1 L MCV MCHC RDW 18.2 H Plt Count Lymph % (Auto) [place] % (Auto) Lymph # (Auto) [place] # (Auto) Seg Neutrophils % Seg Neuts % (Manual) 96.0 H Lymphocytes % (Manual) 4.0 L Monocytes % (Manual) Seg Neutrophils # Seg Neutrophils # Man 25.1 H Lymphocytes # (Manual) 1.0 L Monocytes # (Manual) PT INR ABG pH POC ABG pCO2 POC ABG pO2 ABG pO2 ABG HCO3 ABG O2 Saturation ABG Base Excess ABG Hemoglobin ABG Oxyhemoglobin ABG Sodium ABG Potassium ABG Chloride ABG Glucose Oxyhemoglobin Sodium Potassium 6.0 H Chloride Carbon Dioxide 21 L BUN 89 H Creatinine 10.5 H Glucose 179 H POC Glucose Lactic Acid Calcium Phosphorus Magnesium Total Bilirubin AST ALT Alkaline Phosphatase Total Protein Albumin Triglycerides Arterial Blood Glucose Arterial Blood Ionized Calcium Digoxin Crossmatch See Detail 01/01/21 01/01/21 01/01/21 11:51 12:45 16:52 WBC RBC Hgb Hct MCV MCHC RDW Plt Count Lymph % (Auto) [place] % (Auto) Lymph # (Auto) [place] # (Auto) Seg Neutrophils % Seg Neuts % (Manual) Lymphocytes % (Manual) Monocytes % (Manual) Seg Neutrophils # Seg Neutrophils # Man Lymphocytes # (Manual) Monocytes # (Manual) PT 16.9 H INR 1.39 H ABG pH POC ABG pCO2 POC ABG pO2 ABG pO2 ABG HCO3 ABG O2 Saturation ABG Base Excess ABG Hemoglobin ABG Oxyhemoglobin ABG Sodium ABG Potassium ABG Chloride ABG Glucose Oxyhemoglobin Sodium Potassium Chloride Carbon Dioxide BUN Creatinine Glucose POC Glucose 157 H 177 H Lactic Acid Calcium Phosphorus Magnesium Total Bilirubin AST ALT Alkaline Phosphatase Total Protein Albumin Triglycerides Arterial Blood Glucose Arterial Blood Ionized Calcium Digoxin Crossmatch 01/01/21 01/01/21 01/01/21 17:58 17:58 20:12 WBC 26.9 H RBC 3.14 L Hgb 9.3 L Hct 29.6 L MCV MCHC RDW 17.5 H Plt Count Lymph % (Auto) [place] % (Auto) Lymph # (Auto) [place] # (Auto) Seg Neutrophils % Seg Neuts % (Manual) 84.0 H Lymphocytes % (Manual) 4.0 L Monocytes % (Manual) 12.0 H Seg Neutrophils # Seg Neutrophils # Man 22.6 H Lymphocytes # (Manual) 1.1 L Monocytes # (Manual) 3.2 H PT INR ABG pH POC ABG pCO2 POC ABG pO2 ABG pO2 ABG HCO3 ABG O2 Saturation ABG Base Excess ABG Hemoglobin ABG Oxyhemoglobin ABG Sodium ABG Potassium ABG Chloride ABG Glucose Oxyhemoglobin Sodium 136 L Potassium 6.2 H* Chloride Carbon Dioxide 21 L BUN 92 H Creatinine 10.8 H Glucose 171 H POC Glucose 288 H Lactic Acid Calcium Phosphorus Magnesium Total Bilirubin 2.10 H AST 223 H ALT 100 H Alkaline Phosphatase 206 H Total Protein 4.8 L Albumin 1.9 L Triglycerides Arterial Blood Glucose Arterial Blood Ionized Calcium Digoxin Crossmatch 01/02/21 01/02/21 01/02/21 00:12 00:45 03:05 WBC RBC Hgb Hct MCV MCHC RDW Plt Count Lymph % (Auto) [place] % (Auto) Lymph # (Auto) [place] # (Auto) Seg Neutrophils % Seg Neuts % (Manual) Lymphocytes % (Manual) Monocytes % (Manual) Seg Neutrophils # Seg Neutrophils # Man Lymphocytes # (Manual) Monocytes # (Manual) PT INR ABG pH POC ABG pCO2 POC ABG pO2 81.8 L ABG pO2 ABG HCO3 ABG O2 Saturation ABG Base Excess ABG Hemoglobin 8.0 L ABG Oxyhemoglobin ABG Sodium 129.8 L ABG Potassium 5.4 H ABG Chloride ABG Glucose 257 H Oxyhemoglobin Sodium 136 L Potassium 5.8 H Chloride 96.6 L Carbon Dioxide BUN 95 H Creatinine 11.2 H Glucose 238 H POC Glucose 223 H Lactic Acid Calcium Phosphorus Magnesium Total Bilirubin AST ALT Alkaline Phosphatase Total Protein Albumin Triglycerides Arterial Blood Glucose 257 H Arterial Blood Ionized Calcium 4.0 L Digoxin Crossmatch 01/02/21 01/02/21 01/02/21 06:25 08:00 08:00 WBC 17.5 H RBC 2.31 L Hgb 6.7 L Hct 22.1 L D MCV 96 H MCHC 30 L RDW 18.4 H Plt Count Lymph % (Auto) [place] % (Auto) Lymph # (Auto) [place] # (Auto) Seg Neutrophils % Seg Neuts % (Manual) Lymphocytes % (Manual) Monocytes % (Manual) Seg Neutrophils # Seg Neutrophils # Man Lymphocytes # (Manual) Monocytes # (Manual) PT INR ABG pH POC ABG pCO2 POC ABG pO2 ABG pO2 ABG HCO3 ABG O2 Saturation ABG Base Excess ABG Hemoglobin ABG Oxyhemoglobin ABG Sodium ABG Potassium ABG Chloride ABG Glucose Oxyhemoglobin Sodium 134 L Potassium 5.3 H Chloride 92.9 L Carbon Dioxide BUN 101 H Creatinine 10.9 H Glucose 560 H* POC Glucose 239 H Lactic Acid Calcium 7.6 L Phosphorus 6.50 H Magnesium Total Bilirubin AST ALT Alkaline Phosphatase Total Protein Albumin Triglycerides Arterial Blood Glucose Arterial Blood Ionized Calcium Digoxin Crossmatch 01/02/21 01/02/21 01/02/21 11:26 15:00 17:57 WBC RBC Hgb Hct MCV MCHC RDW Plt Count Lymph % (Auto) [place] % (Auto) Lymph # (Auto) [place] # (Auto) Seg Neutrophils % Seg Neuts % (Manual) Lymphocytes % (Manual) Monocytes % (Manual) Seg Neutrophils # Seg Neutrophils # Man Lymphocytes # (Manual) Monocytes # (Manual) PT INR ABG pH POC ABG pCO2 POC ABG pO2 ABG pO2 ABG HCO3 ABG O2 Saturation ABG Base Excess ABG Hemoglobin ABG Oxyhemoglobin ABG Sodium ABG Potassium ABG Chloride ABG Glucose Oxyhemoglobin Sodium Potassium Chloride Carbon Dioxide BUN Creatinine Glucose 241 H POC Glucose 205 H 272 H Lactic Acid Calcium Phosphorus Magnesium Total Bilirubin AST ALT Alkaline Phosphatase Total Protein Albumin Triglycerides Arterial Blood Glucose Arterial Blood Ionized Calcium Digoxin Crossmatch 01/02/21 01/02/21 01/03/21 23:25 23:43 03:45 WBC RBC Hgb Hct MCV MCHC RDW Plt Count Lymph % (Auto) [place] % (Auto) Lymph # (Auto) [place] # (Auto) Seg Neutrophils % Seg Neuts % (Manual) Lymphocytes % (Manual) Monocytes % (Manual) Seg Neutrophils # Seg Neutrophils # Man Lymphocytes # (Manual) Monocytes # (Manual) PT INR ABG pH POC ABG pCO2 48.3 H POC ABG pO2 134.4 H 79.7 L ABG pO2 ABG HCO3 ABG O2 Saturation ABG Base Excess ABG Hemoglobin 7.7 L 8.6 L ABG Oxyhemoglobin ABG Sodium 131.8 L 130.4 L ABG Potassium ABG Chloride 97.0 L ABG Glucose 218 H 238 H Oxyhemoglobin Sodium Potassium Chloride Carbon Dioxide BUN Creatinine Glucose POC Glucose 218 H Lactic Acid Calcium Phosphorus Magnesium Total Bilirubin AST ALT Alkaline Phosphatase Total Protein Albumin Triglycerides Arterial Blood Glucose 218 H 238 H Arterial Blood Ionized Calcium 4.1 L 4.0 L Digoxin Crossmatch 01/03/21 01/03/21 01/03/21 04:37 04:37 05:39 WBC 15.2 H RBC 2.38 L Hgb 7.3 L Hct 21.6 L MCV MCHC RDW 16.6 H Plt Count Lymph % (Auto) [place] % (Auto) Lymph # (Auto) [place] # (Auto) Seg Neutrophils % Seg Neuts % (Manual) Lymphocytes % (Manual) Monocytes % (Manual) Seg Neutrophils # Seg Neutrophils # Man Lymphocytes # (Manual) Monocytes # (Manual) PT INR ABG pH POC ABG pCO2 POC ABG pO2 ABG pO2 ABG HCO3 ABG O2 Saturation ABG Base Excess ABG Hemoglobin ABG Oxyhemoglobin ABG Sodium ABG Potassium ABG Chloride ABG Glucose Oxyhemoglobin Sodium 136 L Potassium Chloride 94.5 L Carbon Dioxide BUN 69 H Creatinine 8.0 H Glucose 219 H POC Glucose 222 H Lactic Acid Calcium 7.8 L Phosphorus 4.80 H D Magnesium Total Bilirubin AST ALT Alkaline Phosphatase Total Protein Albumin Triglycerides Arterial Blood Glucose Arterial Blood Ionized Calcium Digoxin Crossmatch 01/03/21 01/03/21 01/03/21 11:29 18:49 23:37 WBC RBC Hgb Hct MCV MCHC RDW Plt Count Lymph % (Auto) [place] % (Auto) Lymph # (Auto) [place] # (Auto) Seg Neutrophils % Seg Neuts % (Manual) Lymphocytes % (Manual) Monocytes % (Manual) Seg Neutrophils # Seg Neutrophils # Man Lymphocytes # (Manual) Monocytes # (Manual) PT INR ABG pH POC ABG pCO2 POC ABG pO2 ABG pO2 ABG HCO3 ABG O2 Saturation ABG Base Excess ABG Hemoglobin ABG Oxyhemoglobin ABG Sodium ABG Potassium ABG Chloride ABG Glucose Oxyhemoglobin Sodium Potassium Chloride Carbon Dioxide BUN Creatinine Glucose POC Glucose 232 H 129 H 140 H Lactic Acid Calcium Phosphorus Magnesium Total Bilirubin AST ALT Alkaline Phosphatase Total Protein Albumin Triglycerides Arterial Blood Glucose Arterial Blood Ionized Calcium Digoxin Crossmatch 01/04/21 01/04/21 01/04/21 03:22 04:38 04:38 WBC 11.1 H RBC 2.89 L Hgb 8.9 L Hct 26.2 L MCV MCHC RDW 16.1 H Plt Count Lymph % (Auto) [place] % (Auto) Lymph # (Auto) [place] # (Auto) Seg Neutrophils % Seg Neuts % (Manual) Lymphocytes % (Manual) Monocytes % (Manual) Seg Neutrophils # Seg Neutrophils # Man Lymphocytes # (Manual) Monocytes # (Manual) PT INR ABG pH POC ABG pCO2 POC ABG pO2 82.3 L ABG pO2 ABG HCO3 ABG O2 Saturation ABG Base Excess ABG Hemoglobin 8.9 L ABG Oxyhemoglobin ABG Sodium 130.5 L ABG Potassium ABG Chloride ABG Glucose 124 H Oxyhemoglobin Sodium Potassium Chloride 95.5 L Carbon Dioxide BUN 87 H Creatinine 9.7 H Glucose 118 H POC Glucose Lactic Acid Calcium 7.7 L Phosphorus Magnesium Total Bilirubin AST ALT Alkaline Phosphatase Total Protein Albumin Triglycerides Arterial Blood Glucose 124 H Arterial Blood Ionized Calcium 3.5 L Digoxin Crossmatch 01/04/21 01/04/21 01/04/21 05:39 12:04 18:04 WBC RBC Hgb Hct MCV MCHC RDW Plt Count Lymph % (Auto) [place] % (Auto) Lymph # (Auto) [place] # (Auto) Seg Neutrophils % Seg Neuts % (Manual) Lymphocytes % (Manual) Monocytes % (Manual) Seg Neutrophils # Seg Neutrophils # Man Lymphocytes # (Manual) Monocytes # (Manual) PT INR ABG pH POC ABG pCO2 POC ABG pO2 ABG pO2 ABG HCO3 ABG O2 Saturation ABG Base Excess ABG Hemoglobin ABG Oxyhemoglobin ABG Sodium ABG Potassium ABG Chloride ABG Glucose Oxyhemoglobin Sodium Potassium Chloride Carbon Dioxide BUN Creatinine Glucose POC Glucose 134 H 125 H 131 H Lactic Acid Calcium Phosphorus Magnesium Total Bilirubin AST ALT Alkaline Phosphatase Total Protein Albumin Triglycerides Arterial Blood Glucose Arterial Blood Ionized Calcium Digoxin Crossmatch 0501/05/21 01/05/21 23:41 03:23 04:49 WBC RBC Hgb Hct MCV MCHC RDW Plt Count Lymph % (Auto) [place] % (Auto) Lymph # (Auto) [place] # (Auto) Seg Neutrophils % Seg Neuts % (Manual) Lymphocytes % (Manual) Monocytes % (Manual) Seg Neutrophils # Seg Neutrophils # Man Lymphocytes # (Manual) Monocytes # (Manual) PT INR ABG pH POC ABG pCO2 POC ABG pO2 62.8 L ABG pO2 ABG HCO3 ABG O2 Saturation ABG Base Excess ABG Hemoglobin 9.5 L ABG Oxyhemoglobin 92.0 L ABG Sodium 130.1 L ABG Potassium ABG Chloride ABG Glucose 148 H Oxyhemoglobin Sodium Potassium Chloride 96.9 L Carbon Dioxide BUN 57 H Creatinine 6.7 H Glucose 135 H POC Glucose 132 H Lactic Acid Calcium 8.0 L Phosphorus Magnesium Total Bilirubin AST ALT Alkaline Phosphatase Total Protein Albumin Triglycerides Arterial Blood Glucose 148 H Arterial Blood Ionized Calcium 4.1 L Digoxin Crossmatch 01/05/21 01/05/21 01/05/21 05:04 11:48 12:39 WBC RBC 3.03 L Hgb 9.3 L Hct 27.6 L MCV MCHC RDW 16.5 H Plt Count Lymph % (Auto) [place] % (Auto) Lymph # (Auto) [place] # (Auto) Seg Neutrophils % Seg Neuts % (Manual) Lymphocytes % (Manual) Monocytes % (Manual) Seg Neutrophils # Seg Neutrophils # Man Lymphocytes # (Manual) Monocytes # (Manual) PT INR ABG pH POC ABG pCO2 POC ABG pO2 ABG pO2 ABG HCO3 ABG O2 Saturation ABG Base Excess ABG Hemoglobin ABG Oxyhemoglobin ABG Sodium ABG Potassium ABG Chloride ABG Glucose Oxyhemoglobin Sodium Potassium Chloride Carbon Dioxide BUN Creatinine Glucose POC Glucose 147 H 162 H Lactic Acid Calcium Phosphorus Magnesium Total Bilirubin AST ALT Alkaline Phosphatase Total Protein Albumin Triglycerides Arterial Blood Glucose Arterial Blood Ionized Calcium Digoxin Crossmatch 01/05/21 01/05/21 01/06/21 17:50 23:32 04:15 WBC RBC Hgb Hct MCV MCHC RDW Plt Count Lymph % (Auto) [place] % (Auto) Lymph # (Auto) [place] # (Auto) Seg Neutrophils % Seg Neuts % (Manual) Lymphocytes % (Manual) Monocytes % (Manual) Seg Neutrophils # Seg Neutrophils # Man Lymphocytes # (Manual) Monocytes # (Manual) PT INR ABG pH POC ABG pCO2 POC ABG pO2 ABG pO2 191.0 H ABG HCO3 ABG O2 Saturation 99.2 H ABG Base Excess ABG Hemoglobin 9.0 L ABG Oxyhemoglobin ABG Sodium ABG Potassium ABG Chloride ABG Glucose Oxyhemoglobin Sodium Potassium Chloride Carbon Dioxide BUN Creatinine Glucose POC Glucose 155 H 115 H Lactic Acid Calcium Phosphorus Magnesium Total Bilirubin AST ALT Alkaline Phosphatase Total Protein Albumin Triglycerides Arterial Blood Glucose Arterial Blood Ionized Calcium Digoxin Crossmatch 01/06/21 01/06/21 01/06/21 04:45 05:56 07:03 WBC RBC 2.95 L Hgb 9.1 L Hct 26.8 L MCV MCHC RDW 16.8 H Plt Count Lymph % (Auto) [place] % (Auto) Lymph # (Auto) [place] # (Auto) Seg Neutrophils % Seg Neuts % (Manual) Lymphocytes % (Manual) Monocytes % (Manual) Seg Neutrophils # Seg Neutrophils # Man Lymphocytes # (Manual) Monocytes # (Manual) PT INR ABG pH POC ABG pCO2 POC ABG pO2 ABG pO2 ABG HCO3 ABG O2 Saturation ABG Base Excess ABG Hemoglobin ABG Oxyhemoglobin ABG Sodium ABG Potassium ABG Chloride ABG Glucose Oxyhemoglobin Sodium 135 L Potassium Chloride 95.9 L Carbon Dioxide BUN 82 H Creatinine 8.7 H Glucose 127 H POC Glucose 136 H Lactic Acid Calcium 8.3 L Phosphorus Magnesium Total Bilirubin AST ALT Alkaline Phosphatase Total Protein Albumin Triglycerides Arterial Blood Glucose Arterial Blood Ionized Calcium Digoxin Crossmatch 01/06/21 01/06/21 01/06/21 07:10 11:04 13:38 WBC RBC Hgb Hct MCV MCHC RDW Plt Count Lymph % (Auto) [place] % (Auto) Lymph # (Auto) [place] # (Auto) Seg Neutrophils % Seg Neuts % (Manual) Lymphocytes % (Manual) Monocytes % (Manual) Seg Neutrophils # Seg Neutrophils # Man Lymphocytes # (Manual) Monocytes # (Manual) PT INR ABG pH POC ABG pCO2 POC ABG pO2 ABG pO2 ABG HCO3 ABG O2 Saturation ABG Base Excess ABG Hemoglobin ABG Oxyhemoglobin ABG Sodium ABG Potassium ABG Chloride ABG Glucose Oxyhemoglobin Sodium Potassium Chloride Carbon Dioxide BUN Creatinine Glucose POC Glucose 178 H 155 H Lactic Acid Calcium Phosphorus Magnesium Total Bilirubin AST ALT Alkaline Phosphatase Total Protein Albumin Triglycerides Arterial Blood Glucose Arterial Blood Ionized Calcium Digoxin Crossmatch See Detail 01/06/21 01/06/21 01/07/21 17:35 22:21 03:07 WBC RBC Hgb Hct MCV MCHC RDW Plt Count Lymph % (Auto) [place] % (Auto) Lymph # (Auto) [place] # (Auto) Seg Neutrophils % Seg Neuts % (Manual) Lymphocytes % (Manual) Monocytes % (Manual) Seg Neutrophils # Seg Neutrophils # Man Lymphocytes # (Manual) Monocytes # (Manual) PT INR ABG pH POC ABG pCO2 POC ABG pO2 ABG pO2 ABG HCO3 ABG O2 Saturation ABG Base Excess ABG Hemoglobin 11.9 L ABG Oxyhemoglobin ABG Sodium 135.6 L ABG Potassium ABG Chloride ABG Glucose 181 H Oxyhemoglobin Sodium Potassium Chloride Carbon Dioxide BUN Creatinine Glucose POC Glucose 138 H 202 H Lactic Acid Calcium Phosphorus Magnesium Total Bilirubin AST ALT Alkaline Phosphatase Total Protein Albumin Triglycerides Arterial Blood Glucose 181 H Arterial Blood Ionized Calcium 4.3 L Digoxin Crossmatch 01/07/21 01/07/21 01/07/21 04:50 05:21 08:37 WBC 12.4 H RBC Hgb 11.1 L Hct 33.3 L D MCV MCHC RDW 17.0 H Plt Count Lymph % (Auto) 3.2 L [place] % (Auto) 9.4 H Lymph # (Auto) 0.4 L [place] # (Auto) 1.2 H Seg Neutrophils % 86.6 H Seg Neuts % (Manual) Lymphocytes % (Manual) Monocytes % (Manual) Seg Neutrophils # 10.7 H Seg Neutrophils # Man Lymphocytes # (Manual) Monocytes # (Manual) PT INR ABG pH POC ABG pCO2 POC ABG pO2 ABG pO2 ABG HCO3 ABG O2 Saturation ABG Base Excess ABG Hemoglobin ABG Oxyhemoglobin ABG Sodium ABG Potassium ABG Chloride ABG Glucose Oxyhemoglobin Sodium Potassium Chloride Carbon Dioxide BUN 60 H Creatinine 6.3 H Glucose 154 H POC Glucose 177 H Lactic Acid Calcium 8.3 L Phosphorus Magnesium Total Bilirubin AST ALT Alkaline Phosphatase Total Protein Albumin Triglycerides Arterial Blood Glucose Arterial Blood Ionized Calcium Digoxin Crossmatch 01/07/21 01/07/21 01/07/21 11:21 12:19 17:11 WBC RBC Hgb Hct MCV MCHC RDW Plt Count Lymph % (Auto) [place] % (Auto) Lymph # (Auto) [place] # (Auto) Seg Neutrophils % Seg Neuts % (Manual) Lymphocytes % (Manual) Monocytes % (Manual) Seg Neutrophils # Seg Neutrophils # Man Lymphocytes # (Manual) Monocytes # (Manual) PT INR ABG pH POC ABG pCO2 POC ABG pO2 ABG pO2 ABG HCO3 ABG O2 Saturation ABG Base Excess ABG Hemoglobin ABG Oxyhemoglobin ABG Sodium ABG Potassium ABG Chloride ABG Glucose Oxyhemoglobin Sodium Potassium Chloride Carbon Dioxide BUN Creatinine Glucose POC Glucose 144 H 137 H 119 H Lactic Acid Calcium Phosphorus Magnesium Total Bilirubin AST ALT Alkaline Phosphatase Total Protein Albumin Triglycerides Arterial Blood Glucose Arterial Blood Ionized Calcium Digoxin Crossmatch 01/07/21 01/07/21 01/08/21 17:14 23:39 04:34 WBC RBC Hgb Hct MCV MCHC RDW Plt Count Lymph % (Auto) [place] % (Auto) Lymph # (Auto) [place] # (Auto) Seg Neutrophils % Seg Neuts % (Manual) Lymphocytes % (Manual) Monocytes % (Manual) Seg Neutrophils # Seg Neutrophils # Man Lymphocytes # (Manual) Monocytes # (Manual) PT INR ABG pH 7.345 L POC ABG pCO2 POC ABG pO2 ABG pO2 67.4 L ABG HCO3 ABG O2 Saturation 94.3 L ABG Base Excess -3.9 L ABG Hemoglobin 8.9 L ABG Oxyhemoglobin ABG Sodium ABG Potassium ABG Chloride ABG Glucose Oxyhemoglobin 92.3 L Sodium Potassium Chloride Carbon Dioxide 20 L BUN 93 H Creatinine 8.8 H Glucose 120 H POC Glucose 129 H Lactic Acid Calcium Phosphorus Magnesium Total Bilirubin AST ALT Alkaline Phosphatase 133 H Total Protein 5.4 L Albumin 1.9 L Triglycerides Arterial Blood Glucose Arterial Blood Ionized Calcium Digoxin Crossmatch 01/08/21 01/08/21 01/08/21 05:26 11:38 17:19 WBC RBC Hgb Hct MCV MCHC RDW Plt Count Lymph % (Auto) [place] % (Auto) Lymph # (Auto) [place] # (Auto) Seg Neutrophils % Seg Neuts % (Manual) Lymphocytes % (Manual) Monocytes % (Manual) Seg Neutrophils # Seg Neutrophils # Man Lymphocytes # (Manual) Monocytes # (Manual) PT INR ABG pH POC ABG pCO2 POC ABG pO2 ABG pO2 ABG HCO3 ABG O2 Saturation ABG Base Excess ABG Hemoglobin ABG Oxyhemoglobin ABG Sodium ABG Potassium ABG Chloride ABG Glucose Oxyhemoglobin Sodium Potassium Chloride Carbon Dioxide BUN Creatinine Glucose POC Glucose 125 H 146 H 136 H Lactic Acid Calcium Phosphorus Magnesium Total Bilirubin AST ALT Alkaline Phosphatase Total Protein Albumin Triglycerides Arterial Blood Glucose Arterial Blood Ionized Calcium Digoxin Crossmatch 01/08/21 01/09/21 01/09/21 23:52 05:13 05:21 WBC RBC Hgb Hct MCV MCHC RDW Plt Count Lymph % (Auto) [place] % (Auto) Lymph # (Auto) [place] # (Auto) Seg Neutrophils % Seg Neuts % (Manual) Lymphocytes % (Manual) Monocytes % (Manual) Seg Neutrophils # Seg Neutrophils # Man Lymphocytes # (Manual) Monocytes # (Manual) PT INR ABG pH POC ABG pCO2 POC ABG pO2 ABG pO2 ABG HCO3 ABG O2 Saturation ABG Base Excess ABG Hemoglobin ABG Oxyhemoglobin ABG Sodium ABG Potassium ABG Chloride ABG Glucose Oxyhemoglobin Sodium Potassium Chloride Carbon Dioxide 16 L BUN 123 H Creatinine 10.8 H Glucose 145 H POC Glucose 143 H 144 H Lactic Acid Calcium Phosphorus 5.00 H D Magnesium 2.40 H Total Bilirubin AST ALT Alkaline Phosphatase Total Protein Albumin Triglycerides Arterial Blood Glucose Arterial Blood Ionized Calcium Digoxin Crossmatch 01/09/21 01/09/21 01/09/21 12:08 17:20 23:56 WBC RBC Hgb Hct MCV MCHC RDW Plt Count Lymph % (Auto) [place] % (Auto) Lymph # (Auto) [place] # (Auto) Seg Neutrophils % Seg Neuts % (Manual) Lymphocytes % (Manual) Monocytes % (Manual) Seg Neutrophils # Seg Neutrophils # Man Lymphocytes # (Manual) Monocytes # (Manual) PT INR ABG pH POC ABG pCO2 POC ABG pO2 ABG pO2 ABG HCO3 ABG O2 Saturation ABG Base Excess ABG Hemoglobin ABG Oxyhemoglobin ABG Sodium ABG Potassium ABG Chloride ABG Glucose Oxyhemoglobin Sodium Potassium Chloride Carbon Dioxide BUN Creatinine Glucose POC Glucose 153 H 160 H 158 H Lactic Acid Calcium Phosphorus Magnesium Total Bilirubin AST ALT Alkaline Phosphatase Total Protein Albumin Triglycerides Arterial Blood Glucose Arterial Blood Ionized Calcium Digoxin Crossmatch 01/10/21 01/10/21 01/10/21 04:52 05:44 07:41 WBC RBC Hgb Hct MCV MCHC RDW Plt Count Lymph % (Auto) [place] % (Auto) Lymph # (Auto) [place] # (Auto) Seg Neutrophils % Seg Neuts % (Manual) Lymphocytes % (Manual) Monocytes % (Manual) Seg Neutrophils # Seg Neutrophils # Man Lymphocytes # (Manual) Monocytes # (Manual) PT INR ABG pH POC ABG pCO2 POC ABG pO2 ABG pO2 ABG HCO3 ABG O2 Saturation ABG Base Excess ABG Hemoglobin ABG Oxyhemoglobin ABG Sodium ABG Potassium ABG Chloride ABG Glucose Oxyhemoglobin Sodium 135 L Potassium 3.5 L D Chloride 95.0 L Carbon Dioxide 21 L BUN 93 H Creatinine 8.3 H Glucose 127 H POC Glucose 135 H 157 H Lactic Acid Calcium Phosphorus Magnesium Total Bilirubin AST ALT Alkaline Phosphatase Total Protein Albumin Triglycerides Arterial Blood Glucose Arterial Blood Ionized Calcium Digoxin Crossmatch 01/10/21 01/10/21 01/10/21 09:26 12:03 17:44 WBC 18.2 H RBC 3.14 L Hgb 9.7 L Hct 28.2 L MCV MCHC RDW 16.5 H Plt Count Lymph % (Auto) [place] % (Auto) Lymph # (Auto) [place] # (Auto) Seg Neutrophils % Seg Neuts % (Manual) 95.0 H Lymphocytes % (Manual) 3.0 L Monocytes % (Manual) Seg Neutrophils # Seg Neutrophils # Man 17.3 H Lymphocytes # (Manual) 0.5 L Monocytes # (Manual) PT INR ABG pH POC ABG pCO2 POC ABG pO2 ABG pO2 ABG HCO3 ABG O2 Saturation ABG Base Excess ABG Hemoglobin ABG Oxyhemoglobin ABG Sodium ABG Potassium ABG Chloride ABG Glucose Oxyhemoglobin Sodium Potassium Chloride Carbon Dioxide BUN Creatinine Glucose POC Glucose 163 H 171 H Lactic Acid Calcium Phosphorus Magnesium Total Bilirubin AST ALT Alkaline Phosphatase Total Protein Albumin Triglycerides Arterial Blood Glucose Arterial Blood Ionized Calcium Digoxin Crossmatch 01/10/21 01/11/21 01/11/21 23:50 05:18 05:18 WBC RBC Hgb Hct MCV MCHC RDW Plt Count Lymph % (Auto) [place] % (Auto) Lymph # (Auto) [place] # (Auto) Seg Neutrophils % Seg Neuts % (Manual) Lymphocytes % (Manual) Monocytes % (Manual) Seg Neutrophils # Seg Neutrophils # Man Lymphocytes # (Manual) Monocytes # (Manual) PT INR ABG pH POC ABG pCO2 POC ABG pO2 ABG pO2 ABG HCO3 ABG O2 Saturation ABG Base Excess ABG Hemoglobin ABG Oxyhemoglobin ABG Sodium ABG Potassium ABG Chloride ABG Glucose Oxyhemoglobin Sodium 136 L Potassium Chloride 94.6 L Carbon Dioxide 19 L BUN 145 H Creatinine 10.6 H Glucose 152 H POC Glucose 151 H Lactic Acid Calcium Phosphorus 6.00 H D Magnesium Total Bilirubin AST ALT Alkaline Phosphatase Total Protein Albumin Triglycerides Arterial Blood Glucose Arterial Blood Ionized Calcium Digoxin 0.8 L Crossmatch 01/11/21 01/11/21 01/11/21 05:18 05:19 11:28 WBC 17.4 H RBC 3.34 L Hgb 10.2 L Hct 29.7 L MCV MCHC RDW 15.9 H Plt Count Lymph % (Auto) [place] % (Auto) Lymph # (Auto) [place] # (Auto) Seg Neutrophils % Seg Neuts % (Manual) Lymphocytes % (Manual) Monocytes % (Manual) Seg Neutrophils # Seg Neutrophils # Man Lymphocytes # (Manual) Monocytes # (Manual) PT INR ABG pH POC ABG pCO2 POC ABG pO2 ABG pO2 ABG HCO3 ABG O2 Saturation ABG Base Excess ABG Hemoglobin ABG Oxyhemoglobin ABG Sodium ABG Potassium ABG Chloride ABG Glucose Oxyhemoglobin Sodium Potassium Chloride Carbon Dioxide BUN Creatinine Glucose POC Glucose 149 H 178 H Lactic Acid Calcium Phosphorus Magnesium Total Bilirubin AST ALT Alkaline Phosphatase Total Protein Albumin Triglycerides Arterial Blood Glucose Arterial Blood Ionized Calcium Digoxin Crossmatch 01/11/21 01/11/21 01/12/21 17:31 23:14 05:18 WBC RBC Hgb Hct MCV MCHC RDW Plt Count Lymph % (Auto) [place] % (Auto) Lymph # (Auto) [place] # (Auto) Seg Neutrophils % Seg Neuts % (Manual) Lymphocytes % (Manual) Monocytes % (Manual) Seg Neutrophils # Seg Neutrophils # Man Lymphocytes # (Manual) Monocytes # (Manual) PT INR ABG pH POC ABG pCO2 POC ABG pO2 ABG pO2 ABG HCO3 ABG O2 Saturation ABG Base Excess ABG Hemoglobin ABG Oxyhemoglobin ABG Sodium ABG Potassium ABG Chloride ABG Glucose Oxyhemoglobin Sodium Potassium Chloride Carbon Dioxide BUN Creatinine Glucose POC Glucose 158 H 145 H 148 H Lactic Acid Calcium Phosphorus Magnesium Total Bilirubin AST ALT Alkaline Phosphatase Total Protein Albumin Triglycerides Arterial Blood Glucose Arterial Blood Ionized Calcium Digoxin Crossmatch 01/12/21 01/12/21 01/12/21 06:50 10:45 13:34 WBC RBC Hgb Hct MCV MCHC RDW Plt Count Lymph % (Auto) [place] % (Auto) Lymph # (Auto) [place] # (Auto) Seg Neutrophils % Seg Neuts % (Manual) Lymphocytes % (Manual) Monocytes % (Manual) Seg Neutrophils # Seg Neutrophils # Man Lymphocytes # (Manual) Monocytes # (Manual) PT INR ABG pH POC ABG pCO2 POC ABG pO2 ABG pO2 ABG HCO3 ABG O2 Saturation ABG Base Excess ABG Hemoglobin ABG Oxyhemoglobin ABG Sodium ABG Potassium ABG Chloride ABG Glucose Oxyhemoglobin Sodium Potassium 2.9 L* D Chloride 94.8 L Carbon Dioxide BUN 102 H Creatinine 8.3 H Glucose 139 H POC Glucose 151 H 134 H Lactic Acid Calcium 8.1 L Phosphorus 5.00 H Magnesium Total Bilirubin AST ALT Alkaline Phosphatase Total Protein Albumin Triglycerides Arterial Blood Glucose Arterial Blood Ionized Calcium Digoxin Crossmatch 01/12/21 01/12/21 01/13/21 16:59 23:06 03:45 WBC RBC Hgb Hct MCV MCHC RDW Plt Count Lymph % (Auto) [place] % (Auto) Lymph # (Auto) [place] # (Auto) Seg Neutrophils % Seg Neuts % (Manual) Lymphocytes % (Manual) Monocytes % (Manual) Seg Neutrophils # Seg Neutrophils # Man Lymphocytes # (Manual) Monocytes # (Manual) PT INR ABG pH POC ABG pCO2 POC ABG pO2 ABG pO2 ABG HCO3 ABG O2 Saturation ABG Base Excess ABG Hemoglobin ABG Oxyhemoglobin ABG Sodium ABG Potassium ABG Chloride ABG Glucose Oxyhemoglobin Sodium 136 L Potassium 3.4 L Chloride 92.6 L Carbon Dioxide BUN 134 H Creatinine 10.4 H Glucose 126 H POC Glucose 108 H 135 H Lactic Acid Calcium 8.3 L Phosphorus 5.60 H Magnesium 1.50 L Total Bilirubin AST ALT Alkaline Phosphatase Total Protein Albumin Triglycerides Arterial Blood Glucose Arterial Blood Ionized Calcium Digoxin Crossmatch 01/13/21 01/13/21 01/13/21 03:45 05:55 11:59 WBC 17.6 H RBC 3.33 L Hgb 10.2 L Hct 29.5 L MCV MCHC 35 H RDW 15.5 H Plt Count Lymph % (Auto) 4.4 L [place] % (Auto) 10.3 H Lymph # (Auto) 0.8 L [place] # (Auto) 1.8 H Seg Neutrophils % 84.2 H Seg Neuts % (Manual) Lymphocytes % (Manual) Monocytes % (Manual) Seg Neutrophils # 14.8 H Seg Neutrophils # Man Lymphocytes # (Manual) Monocytes # (Manual) PT INR ABG pH POC ABG pCO2 POC ABG pO2 ABG pO2 ABG HCO3 ABG O2 Saturation ABG Base Excess ABG Hemoglobin ABG Oxyhemoglobin ABG Sodium ABG Potassium ABG Chloride ABG Glucose Oxyhemoglobin Sodium Potassium Chloride Carbon Dioxide BUN Creatinine Glucose POC Glucose 134 H 141 H Lactic Acid Calcium Phosphorus Magnesium Total Bilirubin AST ALT Alkaline Phosphatase Total Protein Albumin Triglycerides Arterial Blood Glucose Arterial Blood Ionized Calcium Digoxin Crossmatch 01/13/21 01/14/21 01/14/21 23:09 05:39 05:57 WBC RBC Hgb Hct MCV MCHC RDW Plt Count Lymph % (Auto) [place] % (Auto) Lymph # (Auto) [place] # (Auto) Seg Neutrophils % Seg Neuts % (Manual) Lymphocytes % (Manual) Monocytes % (Manual) Seg Neutrophils # Seg Neutrophils # Man Lymphocytes # (Manual) Monocytes # (Manual) PT INR ABG pH POC ABG pCO2 POC ABG pO2 ABG pO2 ABG HCO3 ABG O2 Saturation ABG Base Excess ABG Hemoglobin ABG Oxyhemoglobin ABG Sodium ABG Potassium ABG Chloride ABG Glucose Oxyhemoglobin Sodium Potassium Chloride 97.6 L Carbon Dioxide BUN 81 H Creatinine 7.6 H Glucose 193 H POC Glucose 106 H 190 H Lactic Acid Calcium 8.2 L Phosphorus 4.60 H Magnesium Total Bilirubin AST ALT Alkaline Phosphatase Total Protein Albumin Triglycerides Arterial Blood Glucose Arterial Blood Ionized Calcium Digoxin Crossmatch 01/14/21 01/14/21 01/14/21 10:00 16:56 16:59 WBC 17.0 H RBC 3.10 L Hgb 9.6 L Hct 27.4 L MCV MCHC 35 H RDW 15.6 H Plt Count Lymph % (Auto) [place] % (Auto) Lymph # (Auto) [place] # (Auto) Seg Neutrophils % Seg Neuts % (Manual) Lymphocytes % (Manual) Monocytes % (Manual) Seg Neutrophils # Seg Neutrophils # Man Lymphocytes # (Manual) Monocytes # (Manual) PT INR ABG pH POC ABG pCO2 POC ABG pO2 ABG pO2 ABG HCO3 ABG O2 Saturation ABG Base Excess ABG Hemoglobin ABG Oxyhemoglobin ABG Sodium ABG Potassium ABG Chloride ABG Glucose Oxyhemoglobin Sodium Potassium Chloride Carbon Dioxide BUN Creatinine Glucose POC Glucose 37 L 34 L Lactic Acid Calcium Phosphorus Magnesium Total Bilirubin AST ALT Alkaline Phosphatase Total Protein Albumin Triglycerides Arterial Blood Glucose Arterial Blood Ionized Calcium Digoxin Crossmatch 01/14/21 01/14/21 01/14/21 17:02 18:34 23:17 WBC RBC Hgb Hct MCV MCHC RDW Plt Count Lymph % (Auto) [place] % (Auto) Lymph # (Auto) [place] # (Auto) Seg Neutrophils % Seg Neuts % (Manual) Lymphocytes % (Manual) Monocytes % (Manual) Seg Neutrophils # Seg Neutrophils # Man Lymphocytes # (Manual) Monocytes # (Manual) PT INR ABG pH POC ABG pCO2 POC ABG pO2 ABG pO2 ABG HCO3 ABG O2 Saturation ABG Base Excess ABG Hemoglobin ABG Oxyhemoglobin ABG Sodium ABG Potassium ABG Chloride ABG Glucose Oxyhemoglobin Sodium Potassium Chloride Carbon Dioxide BUN Creatinine Glucose POC Glucose 35 L 143 H 53 L Lactic Acid Calcium Phosphorus Magnesium Total Bilirubin AST ALT Alkaline Phosphatase Total Protein Albumin Triglycerides Arterial Blood Glucose Arterial Blood Ionized Calcium Digoxin Crossmatch 01/15/21 01/15/21 01/15/21 00:34 04:00 04:00 WBC 15.9 H RBC 3.02 L Hgb 9.3 L Hct 27.3 L MCV MCHC RDW 15.6 H Plt Count Lymph % (Auto) [place] % (Auto) Lymph # (Auto) [place] # (Auto) Seg Neutrophils % Seg Neuts % (Manual) Lymphocytes % (Manual) Monocytes % (Manual) Seg Neutrophils # Seg Neutrophils # Man Lymphocytes # (Manual) Monocytes # (Manual) PT INR ABG pH POC ABG pCO2 POC ABG pO2 ABG pO2 ABG HCO3 ABG O2 Saturation ABG Base Excess ABG Hemoglobin ABG Oxyhemoglobin ABG Sodium ABG Potassium ABG Chloride ABG Glucose Oxyhemoglobin Sodium 136 L Potassium Chloride 94.3 L Carbon Dioxide BUN 117 H Creatinine 9.9 H Glucose 217 H POC Glucose 181 H Lactic Acid Calcium 8.3 L Phosphorus Magnesium Total Bilirubin AST ALT Alkaline Phosphatase Total Protein Albumin Triglycerides Arterial Blood Glucose Arterial Blood Ionized Calcium Digoxin Crossmatch 01/15/21 01/15/21 05:29 11:51 WBC RBC Hgb Hct MCV MCHC RDW Plt Count Lymph % (Auto) [place] % (Auto) Lymph # (Auto) [place] # (Auto) Seg Neutrophils % Seg Neuts % (Manual) Lymphocytes % (Manual) Monocytes % (Manual) Seg Neutrophils # Seg Neutrophils # Man Lymphocytes # (Manual) Monocytes # (Manual) PT INR ABG pH POC ABG pCO2 POC ABG pO2 ABG pO2 ABG HCO3 ABG O2 Saturation ABG Base Excess ABG Hemoglobin ABG Oxyhemoglobin ABG Sodium ABG Potassium ABG Chloride ABG Glucose Oxyhemoglobin Sodium Potassium Chloride Carbon Dioxide BUN Creatinine Glucose POC Glucose 221 H 62 L Lactic Acid Calcium Phosphorus Magnesium Total Bilirubin AST ALT Alkaline Phosphatase Total Protein Albumin Triglycerides Arterial Blood Glucose Arterial Blood Ionized Calcium Digoxin Crossmatch Allied health notes reviewed: nursing
--- NOTE | 2021-01-15 14:49 | Progress Note ---
Assessment and Plan Acute hypoxemic respiratory failure, on mechanical ventilatory support. Severe Sepsis Peritonitis Acute small-bowel obstruction with tissue necrosis. End-stage renal disease, on dialysis. Hypertension. Crohn's disease. Gastroesophageal reflux disease. Heart failure with reduced ejection fraction. Hyperkalemia. Anemia that is normocytic. Lactic acidosis. Oropharyngeal dysphagia - no new issues otherwise, continue care as below; - continue octreotide - continue Robinul 0.2mg IV q6h - follow clinically for S&S of infection re: fevers / WBC - continue total parenteral nutrition - prn vasopressors for target MAP > 65 mmHg - continue wound care per RN/WCN - continue to wean supplemental oxygen for target O2 sat's > 92% acutely - aspiration precautions - continue bronchodilators with pulmonary hygiene per RT - wean per pulmonary driven protocols otherwise - HD/UF per nephrology prescription for toxin and volume control - avoid nephrotoxins, renally dose all medications - continue accuchecks with glycemic control per SSI (While critically ill target blood glucose of 140-180 mg/dL; avoid hypoglycemia) - sedation prn for target RASS 0 to -1 - continue to avoid benzodiazepine's, reduce the possibility of delirium - complete AB's per ID rec's - prn analgesia per CPOT score - Maintenance of sleep-wake cycle, avoid delirium - enteral nutritional support at goal rate as tolerated (once cleared by surgeon) - G.I. & VTE prophylaxis - PT/OT/ROM exercises - continue mobility protocols for pressure ulcer prophylaxis - Monitor hemodynamics closely - continue other care per attending / other consultants - discharge planning ongoing concurrently .... Re-evaluate in am & prn CONDITION: FAIR PROGNOSIS: GUARDED CODE STATUS: FULL CODE Subjective Date of service: 01/15/21 Principal diagnosis: Ac hypoxemic resp failure; Severe Sepsis; Peritonitis; Acute SBO; ESRD; CHF Interval history: Patient is seen today for: Ac hypoxemic resp failure; Severe Sepsis; Peritonitis; Acute SBO; ESRD on Dialysis; HTN; Crohn's disease; HFrEF Seen and examined at bedside; 24hour events reviewed; nursing and respiratory care staff consulted; no adverse overnight events reported to me; resting in bed; remains on supplemental oxygen; episodes of hypoglycemia noted and long acting insulin dose reduced. Objective Vital Signs - 12hr 01/15/21 01/15/21 01/15/21 03:00 04:00 04:30 Temperature 98.0 F Pulse Rate 72 73 84 Pulse Rate [ 84 From Monitor] Respiratory 14 13 Rate Blood Pressure 152/72 158/68 O2 Sat by Pulse 97 97 Oximetry 01/15/21 01/15/21 01/15/21 05:00 05:58 05:59 Temperature Pulse Rate 82 86 86 Pulse Rate [ From Monitor] Respiratory 13 Rate Blood Pressure 167/75 155/77 150/77 O2 Sat by Pulse 97 Oximetry 01/15/21 01/15/21 01/15/21 06:00 06:24 06:54 Temperature Pulse Rate 85 Pulse Rate [ From Monitor] Respiratory 16 19 17 Rate Blood Pressure 148/81 O2 Sat by Pulse 98 Oximetry 01/15/21 01/15/21 01/15/21 07:00 08:00 09:00 Temperature 98.1 F Pulse Rate 81 89 81 Pulse Rate [ From Monitor] Respiratory 17 13 17 Rate Blood Pressure 139/60 134/60 138/58 O2 Sat by Pulse 96 98 97 Oximetry 01/15/21 01/15/21 01/15/21 09:04 09:05 10:00 Temperature Pulse Rate 85 85 71 Pulse Rate [ From Monitor] Respiratory 15 Rate Blood Pressure 138/58 138/58 133/50 O2 Sat by Pulse 99 Oximetry 01/15/21 01/15/21 01/15/21 11:00 12:00 12:07 Temperature 98.0 F Pulse Rate 85 77 74 Pulse Rate [ From Monitor] Respiratory 23 17 Rate Blood Pressure 126/62 123/62 123/62 O2 Sat by Pulse 96 96 Oximetry 01/15/21 01/15/21 13:00 13:39 Temperature Pulse Rate 74 75 Pulse Rate [ From Monitor] Respiratory 13 Rate Blood Pressure 153/70 135/61 O2 Sat by Pulse 92 Oximetry Constitutional: no acute distress, other (elderly male with milldy increased respiratory effort) Eyes: non-icteric ENT: oropharynx moist, oropharyngeal exudate pre (improved), other (macroglossia improved) Neck: supple, no lymphadenopathy, no JVD Effort: normal Ascultation: Bilateral: diminished breath sounds, rhonchi Percussion: Bilateral: not dull Cardiovascular: regular rate and rhythm Gastrointestinal: hypoactive bowel sounds, soft, non-tender, non-distended (protuberant), other (Midline abdominal incision ) Integumentary: other (Midline abdominal incision ) Extremities: no cyanosis, no edema, pulses normal, no ischemia or petechiae Neurologic: non-focal exam (grossly), pupils equal and round, CN II-XII normal, motor strength normal and (sedated) Psychiatric: mood appropriate, affect normal CBC and BMP: 01/19/21 08:56 01/19/21 08:56 ABG, PT/INR, D-dimer: ABG ABG pH 7.345 pH Units (7.350-7.450) L 01/07/21 17:14 POC ABG pCO2 41.4 mmHg (32.0-48.0) 01/07/21 03:07 ABG pCO2 40.3 mm Hg 01/07/21 17:14 POC ABG pO2 94.5 mmHg (83-108) 01/07/21 03:07 ABG pO2 67.4 mm Hg (80.0-90.0) L 01/07/21 17:14 POC ABG HCO3 22.7 01/07/21 03:07 ABG O2 Saturation 94.3 % (95.0-99.0) L 01/07/21 17:14 PT/INR, D-dimer PT 16.9 Sec. (12.2-14.9) H 01/01/21 12:45 INR 1.39 (0.87-1.13) H 01/01/21 12:45 Abnormal lab findings: Abnormal Labs 12/22/20 12/22/20 12/22/20 14:38 14:38 14:38 WBC RBC Hgb 11.2 L Hct 35.0 L MCV MCHC RDW 16.7 H Plt Count Lymph % (Auto) [place] % (Auto) Lymph # (Auto) [place] # (Auto) Seg Neutrophils % Seg Neuts % (Manual) 94.0 H Lymphocytes % (Manual) 5.0 L Monocytes % (Manual) Seg Neutrophils # Seg Neutrophils # Man Lymphocytes # (Manual) 0.3 L Monocytes # (Manual) PT INR ABG pH POC ABG pCO2 POC ABG pO2 ABG pO2 ABG HCO3 ABG O2 Saturation ABG Base Excess ABG Hemoglobin ABG Oxyhemoglobin ABG Sodium ABG Potassium ABG Chloride ABG Glucose Oxyhemoglobin Sodium Potassium Chloride Carbon Dioxide BUN 58 H Creatinine 13.2 H Glucose 113 H POC Glucose Lactic Acid 3.60 H* Calcium Phosphorus Magnesium Total Bilirubin 1.30 H AST ALT Alkaline Phosphatase 155 H Total Protein Albumin Triglycerides Arterial Blood Glucose Arterial Blood Ionized Calcium Digoxin Crossmatch 12/22/20 12/22/20 12/23/20 16:26 17:47 05:22 WBC RBC Hgb Hct MCV MCHC RDW Plt Count Lymph % (Auto) [place] % (Auto) Lymph # (Auto) [place] # (Auto) Seg Neutrophils % Seg Neuts % (Manual) Lymphocytes % (Manual) Monocytes % (Manual) Seg Neutrophils # Seg Neutrophils # Man Lymphocytes # (Manual) Monocytes # (Manual) PT INR ABG pH POC ABG pCO2 POC ABG pO2 ABG pO2 ABG HCO3 ABG O2 Saturation ABG Base Excess ABG Hemoglobin ABG Oxyhemoglobin ABG Sodium ABG Potassium ABG Chloride ABG Glucose Oxyhemoglobin Sodium Potassium Chloride Carbon Dioxide BUN Creatinine Glucose POC Glucose Lactic Acid 2.80 H* 3.10 H* 2.30 H* Calcium Phosphorus Magnesium Total Bilirubin AST ALT Alkaline Phosphatase Total Protein Albumin Triglycerides Arterial Blood Glucose Arterial Blood Ionized Calcium Digoxin Crossmatch 12/23/20 12/23/20 12/23/20 05:22 05:22 06:35 WBC 12.1 H RBC Hgb 11.0 L Hct 33.7 L MCV MCHC RDW 16.9 H Plt Count Lymph % (Auto) [place] % (Auto) Lymph # (Auto) [place] # (Auto) Seg Neutrophils % Seg Neuts % (Manual) 93.0 H Lymphocytes % (Manual) 1.0 L Monocytes % (Manual) Seg Neutrophils # Seg Neutrophils # Man 11.3 H Lymphocytes # (Manual) 0.1 L Monocytes # (Manual) PT INR ABG pH POC ABG pCO2 POC ABG pO2 ABG pO2 ABG HCO3 ABG O2 Saturation ABG Base Excess ABG Hemoglobin ABG Oxyhemoglobin ABG Sodium ABG Potassium ABG Chloride ABG Glucose Oxyhemoglobin Sodium Potassium 5.7 H D Chloride Carbon Dioxide BUN 73 H Creatinine 14.2 H Glucose POC Glucose Lactic Acid 2.30 H* Calcium 7.9 L Phosphorus Magnesium Total Bilirubin 1.40 H AST 119 H ALT 130 H Alkaline Phosphatase 183 H Total Protein 6.1 L Albumin 3.6 L Triglycerides Arterial Blood Glucose Arterial Blood Ionized Calcium Digoxin Crossmatch 12/23/20 12/23/20 12/23/20 11:40 13:53 16:47 WBC RBC Hgb 10.0 L Hct 30.4 L MCV MCHC RDW Plt Count Lymph % (Auto) [place] % (Auto) Lymph # (Auto) [place] # (Auto) Seg Neutrophils % Seg Neuts % (Manual) Lymphocytes % (Manual) Monocytes % (Manual) Seg Neutrophils # Seg Neutrophils # Man Lymphocytes # (Manual) Monocytes # (Manual) PT INR ABG pH POC ABG pCO2 POC ABG pO2 137.5 H ABG pO2 ABG HCO3 ABG O2 Saturation ABG Base Excess ABG Hemoglobin 9.7 L ABG Oxyhemoglobin ABG Sodium 134.1 L ABG Potassium 6.6 H ABG Chloride ABG Glucose 103 H Oxyhemoglobin Sodium Potassium Chloride Carbon Dioxide BUN Creatinine Glucose POC Glucose Lactic Acid Calcium Phosphorus Magnesium Total Bilirubin AST ALT Alkaline Phosphatase Total Protein Albumin Triglycerides Arterial Blood Glucose 103 H Arterial Blood Ionized Calcium 3.8 L Digoxin Crossmatch See Detail 12/23/20 12/23/20 12/24/20 20:35 20:40 01:20 WBC RBC Hgb Hct MCV MCHC RDW Plt Count Lymph % (Auto) [place] % (Auto) Lymph # (Auto) [place] # (Auto) Seg Neutrophils % Seg Neuts % (Manual) Lymphocytes % (Manual) Monocytes % (Manual) Seg Neutrophils # Seg Neutrophils # Man Lymphocytes # (Manual) Monocytes # (Manual) PT INR ABG pH 7.252 L POC ABG pCO2 POC ABG pO2 ABG pO2 50.1 L ABG HCO3 ABG O2 Saturation 81.1 L ABG Base Excess -5.9 L ABG Hemoglobin 12.1 L ABG Oxyhemoglobin ABG Sodium ABG Potassium ABG Chloride ABG Glucose Oxyhemoglobin 78.6 L Sodium 134 L Potassium 6.9 H* D 6.3 H* Chloride Carbon Dioxide 18 L 20 L BUN 87 H 91 H Creatinine 15.3 H 15.3 H Glucose 103 H POC Glucose Lactic Acid Calcium 6.9 L 7.5 L Phosphorus Magnesium Total Bilirubin AST ALT Alkaline Phosphatase Total Protein Albumin Triglycerides Arterial Blood Glucose Arterial Blood Ionized Calcium Digoxin Crossmatch 12/24/20 12/24/20 12/24/20 04:00 10:29 10:29 WBC RBC 3.49 L Hgb 10.5 L Hct 31.2 L MCV MCHC RDW 17.5 H Plt Count 124 L Lymph % (Auto) 3.7 L [place] % (Auto) 9.8 H Lymph # (Auto) 0.2 L [place] # (Auto) Seg Neutrophils % 85.9 H Seg Neuts % (Manual) Lymphocytes % (Manual) Monocytes % (Manual) Seg Neutrophils # Seg Neutrophils # Man Lymphocytes # (Manual) Monocytes # (Manual) PT INR ABG pH POC ABG pCO2 28.1 L POC ABG pO2 ABG pO2 ABG HCO3 ABG O2 Saturation ABG Base Excess ABG Hemoglobin ABG Oxyhemoglobin ABG Sodium 133.9 L ABG Potassium 5.3 H ABG Chloride 108.0 H ABG Glucose Oxyhemoglobin Sodium Potassium 5.6 H Chloride Carbon Dioxide 19 L BUN 99 H Creatinine 16.9 H Glucose 52 L POC Glucose Lactic Acid Calcium 7.6 L Phosphorus Magnesium Total Bilirubin 3.50 H AST 67 H ALT 71 H Alkaline Phosphatase Total Protein 3.5 L D Albumin 2.1 L Triglycerides Arterial Blood Glucose Arterial Blood Ionized Calcium 4.0 L Digoxin Crossmatch 12/25/20 12/25/20 12/25/20 03:33 04:00 04:00 WBC 3.8 L RBC 2.90 L Hgb 8.6 L Hct 25.7 L MCV MCHC RDW 16.7 H Plt Count 113 L Lymph % (Auto) [place] % (Auto) Lymph # (Auto) [place] # (Auto) Seg Neutrophils % Seg Neuts % (Manual) Lymphocytes % (Manual) Monocytes % (Manual) Seg Neutrophils # Seg Neutrophils # Man Lymphocytes # (Manual) Monocytes # (Manual) PT INR ABG pH 7.544 H POC ABG pCO2 28.2 L POC ABG pO2 62.8 L ABG pO2 ABG HCO3 ABG O2 Saturation ABG Base Excess ABG Hemoglobin 9.3 L ABG Oxyhemoglobin 93.0 L ABG Sodium 130.3 L ABG Potassium ABG Chloride ABG Glucose 97 H Oxyhemoglobin Sodium Potassium Chloride Carbon Dioxide BUN 62 H Creatinine 11.4 H Glucose POC Glucose Lactic Acid Calcium 7.7 L Phosphorus 5.00 H Magnesium Total Bilirubin AST ALT Alkaline Phosphatase Total Protein Albumin Triglycerides Arterial Blood Glucose 97 H Arterial Blood Ionized Calcium 3.9 L Digoxin Crossmatch 12/26/20 12/26/20 12/27/20 04:46 Unknown 03:40 WBC 4.1 L RBC 2.61 L Hgb 7.8 L Hct 23.4 L MCV MCHC RDW 17.1 H Plt Count 119 L Lymph % (Auto) 5.3 L [place] % (Auto) 10.6 H Lymph # (Auto) 0.2 L [place] # (Auto) Seg Neutrophils % 78.8 H Seg Neuts % (Manual) Lymphocytes % (Manual) Monocytes % (Manual) Seg Neutrophils # Seg Neutrophils # Man Lymphocytes # (Manual) Monocytes # (Manual) PT INR ABG pH 7.333 L 7.332 L POC ABG pCO2 POC ABG pO2 ABG pO2 ABG HCO3 26.9 H ABG O2 Saturation ABG Base Excess -2.4 L ABG Hemoglobin 6.8 L 7.2 L ABG Oxyhemoglobin ABG Sodium ABG Potassium ABG Chloride ABG Glucose Oxyhemoglobin 93.0 L 93.1 L Sodium Potassium Chloride Carbon Dioxide BUN Creatinine Glucose POC Glucose Lactic Acid Calcium Phosphorus Magnesium Total Bilirubin AST ALT Alkaline Phosphatase Total Protein Albumin Triglycerides Arterial Blood Glucose Arterial Blood Ionized Calcium Digoxin Crossmatch 12/27/20 12/27/20 12/27/20 06:40 06:40 11:22 WBC 4.4 L RBC 2.49 L Hgb 7.4 L Hct 22.4 L MCV MCHC RDW 17.1 H Plt Count 111 L Lymph % (Auto) 6.7 L [place] % (Auto) 12.6 H Lymph # (Auto) 0.3 L [place] # (Auto) Seg Neutrophils % 77.6 H Seg Neuts % (Manual) Lymphocytes % (Manual) Monocytes % (Manual) Seg Neutrophils # Seg Neutrophils # Man Lymphocytes # (Manual) Monocytes # (Manual) PT INR ABG pH POC ABG pCO2 POC ABG pO2 ABG pO2 ABG HCO3 ABG O2 Saturation ABG Base Excess ABG Hemoglobin ABG Oxyhemoglobin ABG Sodium ABG Potassium ABG Chloride ABG Glucose Oxyhemoglobin Sodium Potassium Chloride Carbon Dioxide BUN 64 H Creatinine 9.8 H Glucose 147 H POC Glucose 134 H Lactic Acid Calcium 8.3 L Phosphorus 5.00 H Magnesium Total Bilirubin 3.70 H AST 72 H ALT Alkaline Phosphatase 142 H Total Protein 5.1 L D Albumin 2.9 L Triglycerides Arterial Blood Glucose Arterial Blood Ionized Calcium Digoxin Crossmatch 12/27/20 12/27/20 12/28/20 17:29 23:31 03:09 WBC RBC Hgb Hct MCV MCHC RDW Plt Count Lymph % (Auto) [place] % (Auto) Lymph # (Auto) [place] # (Auto) Seg Neutrophils % Seg Neuts % (Manual) Lymphocytes % (Manual) Monocytes % (Manual) Seg Neutrophils # Seg Neutrophils # Man Lymphocytes # (Manual) Monocytes # (Manual) PT INR ABG pH 7.474 H POC ABG pCO2 POC ABG pO2 ABG pO2 ABG HCO3 ABG O2 Saturation ABG Base Excess ABG Hemoglobin 7.8 L ABG Oxyhemoglobin ABG Sodium ABG Potassium ABG Chloride ABG Glucose Oxyhemoglobin Sodium Potassium Chloride Carbon Dioxide BUN Creatinine Glucose POC Glucose 121 H 131 H Lactic Acid Calcium Phosphorus Magnesium Total Bilirubin AST ALT Alkaline Phosphatase Total Protein Albumin Triglycerides Arterial Blood Glucose Arterial Blood Ionized Calcium Digoxin Crossmatch 12/28/20 12/28/20 12/28/20 05:37 05:40 05:40 WBC 4.3 L RBC 2.40 L Hgb 7.2 L Hct 21.5 L MCV MCHC RDW 17.4 H Plt Count 112 L Lymph % (Auto) 6.5 L [place] % (Auto) 16.7 H Lymph # (Auto) 0.3 L [place] # (Auto) Seg Neutrophils % 71.1 H Seg Neuts % (Manual) Lymphocytes % (Manual) Monocytes % (Manual) Seg Neutrophils # Seg Neutrophils # Man Lymphocytes # (Manual) Monocytes # (Manual) PT INR ABG pH POC ABG pCO2 POC ABG pO2 ABG pO2 ABG HCO3 ABG O2 Saturation ABG Base Excess ABG Hemoglobin ABG Oxyhemoglobin ABG Sodium ABG Potassium ABG Chloride ABG Glucose Oxyhemoglobin Sodium Potassium Chloride Carbon Dioxide BUN 85 H Creatinine 11.5 H Glucose 132 H POC Glucose 121 H Lactic Acid Calcium 8.2 L Phosphorus Magnesium 2.40 H Total Bilirubin 3.80 H AST 70 H ALT Alkaline Phosphatase 176 H Total Protein 5.0 L Albumin 2.9 L Triglycerides Arterial Blood Glucose Arterial Blood Ionized Calcium Digoxin Crossmatch 12/28/20 12/28/20 12/28/20 11:34 15:00 17:35 WBC RBC Hgb Hct MCV MCHC RDW Plt Count Lymph % (Auto) [place] % (Auto) Lymph # (Auto) [place] # (Auto) Seg Neutrophils % Seg Neuts % (Manual) Lymphocytes % (Manual) Monocytes % (Manual) Seg Neutrophils # Seg Neutrophils # Man Lymphocytes # (Manual) Monocytes # (Manual) PT INR ABG pH 7.461 H POC ABG pCO2 POC ABG pO2 72.2 L ABG pO2 ABG HCO3 ABG O2 Saturation ABG Base Excess ABG Hemoglobin 8.2 L ABG Oxyhemoglobin 93.6 L ABG Sodium 134.1 L ABG Potassium 3.2 L ABG Chloride ABG Glucose 135 H Oxyhemoglobin Sodium Potassium Chloride Carbon Dioxide BUN Creatinine Glucose POC Glucose 137 H 144 H Lactic Acid Calcium Phosphorus Magnesium Total Bilirubin AST ALT Alkaline Phosphatase Total Protein Albumin Triglycerides Arterial Blood Glucose 135 H Arterial Blood Ionized Calcium 4.4 L Digoxin Crossmatch 12/28/20 12/28/20 12/29/20 19:44 Unknown 00:21 WBC RBC Hgb Hct MCV MCHC RDW Plt Count Lymph % (Auto) [place] % (Auto) Lymph # (Auto) [place] # (Auto) Seg Neutrophils % Seg Neuts % (Manual) Lymphocytes % (Manual) Monocytes % (Manual) Seg Neutrophils # Seg Neutrophils # Man Lymphocytes # (Manual) Monocytes # (Manual) PT INR ABG pH 7.474 H POC ABG pCO2 POC ABG pO2 ABG pO2 ABG HCO3 ABG O2 Saturation ABG Base Excess ABG Hemoglobin 7.8 L ABG Oxyhemoglobin ABG Sodium 133.2 L ABG Potassium ABG Chloride ABG Glucose 139 H Oxyhemoglobin Sodium 135 L Potassium Chloride 96.6 L Carbon Dioxide BUN 47 H Creatinine 7.4 H Glucose 130 H POC Glucose 142 H Lactic Acid Calcium 8.3 L Phosphorus Magnesium Total Bilirubin AST ALT Alkaline Phosphatase Total Protein Albumin Triglycerides Arterial Blood Glucose 139 H Arterial Blood Ionized Calcium 4.3 L Digoxin Crossmatch 12/29/20 12/29/20 12/29/20 05:16 05:16 05:26 WBC RBC 2.53 L Hgb 7.7 L Hct 22.8 L MCV MCHC RDW 17.0 H Plt Count 130 L Lymph % (Auto) [place] % (Auto) Lymph # (Auto) [place] # (Auto) Seg Neutrophils % Seg Neuts % (Manual) 79.0 H Lymphocytes % (Manual) 9.0 L Monocytes % (Manual) Seg Neutrophils # Seg Neutrophils # Man Lymphocytes # (Manual) 0.6 L Monocytes # (Manual) PT INR ABG pH POC ABG pCO2 POC ABG pO2 ABG pO2 ABG HCO3 ABG O2 Saturation ABG Base Excess ABG Hemoglobin ABG Oxyhemoglobin ABG Sodium ABG Potassium ABG Chloride ABG Glucose Oxyhemoglobin Sodium Potassium 3.4 L Chloride 96.6 L Carbon Dioxide BUN 59 H Creatinine 8.3 H Glucose 127 H POC Glucose 141 H Lactic Acid Calcium 8.2 L Phosphorus Magnesium Total Bilirubin 3.00 H AST 88 H ALT Alkaline Phosphatase 188 H Total Protein 5.1 L Albumin 2.8 L Triglycerides Arterial Blood Glucose Arterial Blood Ionized Calcium Digoxin Crossmatch 12/29/20 12/29/20 12/29/20 11:33 17:29 23:22 WBC RBC Hgb Hct MCV MCHC RDW Plt Count Lymph % (Auto) [place] % (Auto) Lymph # (Auto) [place] # (Auto) Seg Neutrophils % Seg Neuts % (Manual) Lymphocytes % (Manual) Monocytes % (Manual) Seg Neutrophils # Seg Neutrophils # Man Lymphocytes # (Manual) Monocytes # (Manual) PT INR ABG pH POC ABG pCO2 POC ABG pO2 ABG pO2 ABG HCO3 ABG O2 Saturation ABG Base Excess ABG Hemoglobin ABG Oxyhemoglobin ABG Sodium ABG Potassium ABG Chloride ABG Glucose Oxyhemoglobin Sodium Potassium Chloride Carbon Dioxide BUN Creatinine Glucose POC Glucose 144 H 130 H 117 H Lactic Acid Calcium Phosphorus Magnesium Total Bilirubin AST ALT Alkaline Phosphatase Total Protein Albumin Triglycerides Arterial Blood Glucose Arterial Blood Ionized Calcium Digoxin Crossmatch 12/30/20 12/30/20 12/30/20 05:23 08:15 09:00 WBC RBC Hgb Hct MCV MCHC RDW Plt Count Lymph % (Auto) [place] % (Auto) Lymph # (Auto) [place] # (Auto) Seg Neutrophils % Seg Neuts % (Manual) Lymphocytes % (Manual) Monocytes % (Manual) Seg Neutrophils # Seg Neutrophils # Man Lymphocytes # (Manual) Monocytes # (Manual) PT INR ABG pH POC ABG pCO2 POC ABG pO2 ABG pO2 ABG HCO3 ABG O2 Saturation ABG Base Excess ABG Hemoglobin ABG Oxyhemoglobin ABG Sodium ABG Potassium ABG Chloride ABG Glucose Oxyhemoglobin Sodium 135 L Potassium Chloride 95.9 L Carbon Dioxide BUN 85 H Creatinine 10.6 H Glucose 128 H POC Glucose 135 H 127 H Lactic Acid Calcium 8.3 L Phosphorus Magnesium Total Bilirubin 2.40 H AST 85 H ALT Alkaline Phosphatase 216 H Total Protein 5.3 L Albumin 2.6 L Triglycerides 155 H Arterial Blood Glucose Arterial Blood Ionized Calcium Digoxin Crossmatch 12/30/20 12/30/20 12/30/20 09:00 11:53 15:49 WBC RBC 2.61 L Hgb 7.8 L Hct 23.7 L MCV MCHC RDW 17.3 H Plt Count Lymph % (Auto) [place] % (Auto) Lymph # (Auto) [place] # (Auto) Seg Neutrophils % Seg Neuts % (Manual) Lymphocytes % (Manual) Monocytes % (Manual) Seg Neutrophils # Seg Neutrophils # Man Lymphocytes # (Manual) Monocytes # (Manual) PT INR ABG pH POC ABG pCO2 POC ABG pO2 ABG pO2 ABG HCO3 ABG O2 Saturation ABG Base Excess ABG Hemoglobin ABG Oxyhemoglobin ABG Sodium ABG Potassium ABG Chloride ABG Glucose Oxyhemoglobin Sodium Potassium Chloride Carbon Dioxide BUN Creatinine Glucose POC Glucose 155 H 146 H Lactic Acid Calcium Phosphorus Magnesium Total Bilirubin AST ALT Alkaline Phosphatase Total Protein Albumin Triglycerides Arterial Blood Glucose Arterial Blood Ionized Calcium Digoxin Crossmatch 12/30/20 12/30/20 12/31/20 17:53 23:45 03:56 WBC RBC Hgb Hct MCV MCHC RDW Plt Count Lymph % (Auto) [place] % (Auto) Lymph # (Auto) [place] # (Auto) Seg Neutrophils % Seg Neuts % (Manual) Lymphocytes % (Manual) Monocytes % (Manual) Seg Neutrophils # Seg Neutrophils # Man Lymphocytes # (Manual) Monocytes # (Manual) PT INR ABG pH POC ABG pCO2 POC ABG pO2 49.4 L ABG pO2 ABG HCO3 ABG O2 Saturation ABG Base Excess ABG Hemoglobin 10.3 L ABG Oxyhemoglobin 84.2 L ABG Sodium 133.1 L ABG Potassium ABG Chloride ABG Glucose 173 H Oxyhemoglobin Sodium Potassium Chloride Carbon Dioxide BUN Creatinine Glucose POC Glucose 139 H 173 H Lactic Acid Calcium Phosphorus Magnesium Total Bilirubin AST ALT Alkaline Phosphatase Total Protein Albumin Triglycerides Arterial Blood Glucose 173 H Arterial Blood Ionized Calcium Digoxin Crossmatch 12/31/20 12/31/20 12/31/20 05:07 06:51 06:51 WBC 20.3 H RBC 3.32 L Hgb 9.8 L Hct 30.3 L D MCV MCHC RDW 17.3 H Plt Count Lymph % (Auto) [place] % (Auto) Lymph # (Auto) [place] # (Auto) Seg Neutrophils % Seg Neuts % (Manual) 87.0 H Lymphocytes % (Manual) 10.0 L Monocytes % (Manual) Seg Neutrophils # Seg Neutrophils # Man 17.7 H Lymphocytes # (Manual) Monocytes # (Manual) PT INR ABG pH POC ABG pCO2 POC ABG pO2 ABG pO2 ABG HCO3 ABG O2 Saturation ABG Base Excess ABG Hemoglobin ABG Oxyhemoglobin ABG Sodium ABG Potassium ABG Chloride ABG Glucose Oxyhemoglobin Sodium Potassium 5.2 H D Chloride Carbon Dioxide BUN 62 H Creatinine 8.4 H Glucose 116 H POC Glucose 120 H Lactic Acid Calcium Phosphorus Magnesium 1.60 L Total Bilirubin AST ALT Alkaline Phosphatase Total Protein Albumin Triglycerides Arterial Blood Glucose Arterial Blood Ionized Calcium Digoxin Crossmatch 12/31/20 12/31/20 12/31/20 09:38 12:19 12:22 WBC RBC Hgb Hct MCV MCHC RDW Plt Count Lymph % (Auto) [place] % (Auto) Lymph # (Auto) [place] # (Auto) Seg Neutrophils % Seg Neuts % (Manual) Lymphocytes % (Manual) Monocytes % (Manual) Seg Neutrophils # Seg Neutrophils # Man Lymphocytes # (Manual) Monocytes # (Manual) PT INR ABG pH POC ABG pCO2 POC ABG pO2 ABG pO2 354.0 H ABG HCO3 ABG O2 Saturation 99.6 H ABG Base Excess ABG Hemoglobin 9.1 L ABG Oxyhemoglobin ABG Sodium ABG Potassium ABG Chloride ABG Glucose Oxyhemoglobin Sodium Potassium 5.2 H Chloride Carbon Dioxide BUN Creatinine Glucose POC Glucose 132 H Lactic Acid Calcium Phosphorus Magnesium Total Bilirubin AST ALT Alkaline Phosphatase Total Protein Albumin Triglycerides Arterial Blood Glucose Arterial Blood Ionized Calcium Digoxin Crossmatch 12/31/20 01/01/21 01/01/21 23:23 03:03 05:04 WBC RBC Hgb Hct MCV MCHC RDW Plt Count Lymph % (Auto) [place] % (Auto) Lymph # (Auto) [place] # (Auto) Seg Neutrophils % Seg Neuts % (Manual) Lymphocytes % (Manual) Monocytes % (Manual) Seg Neutrophils # Seg Neutrophils # Man Lymphocytes # (Manual) Monocytes # (Manual) PT INR ABG pH POC ABG pCO2 POC ABG pO2 79.6 L ABG pO2 ABG HCO3 ABG O2 Saturation ABG Base Excess ABG Hemoglobin 9.2 L ABG Oxyhemoglobin ABG Sodium 131.6 L ABG Potassium 5.8 H ABG Chloride ABG Glucose 177 H Oxyhemoglobin Sodium Potassium Chloride Carbon Dioxide BUN Creatinine Glucose POC Glucose 174 H 167 H Lactic Acid Calcium Phosphorus Magnesium Total Bilirubin AST ALT Alkaline Phosphatase Total Protein Albumin Triglycerides Arterial Blood Glucose 177 H Arterial Blood Ionized Calcium Digoxin Crossmatch 01/01/21 01/01/21 01/01/21 07:31 07:31 11:31 WBC 26.1 H RBC 2.95 L Hgb 8.6 L Hct 27.1 L MCV MCHC RDW 18.2 H Plt Count Lymph % (Auto) [place] % (Auto) Lymph # (Auto) [place] # (Auto) Seg Neutrophils % Seg Neuts % (Manual) 96.0 H Lymphocytes % (Manual) 4.0 L Monocytes % (Manual) Seg Neutrophils # Seg Neutrophils # Man 25.1 H Lymphocytes # (Manual) 1.0 L Monocytes # (Manual) PT INR ABG pH POC ABG pCO2 POC ABG pO2 ABG pO2 ABG HCO3 ABG O2 Saturation ABG Base Excess ABG Hemoglobin ABG Oxyhemoglobin ABG Sodium ABG Potassium ABG Chloride ABG Glucose Oxyhemoglobin Sodium Potassium 6.0 H Chloride Carbon Dioxide 21 L BUN 89 H Creatinine 10.5 H Glucose 179 H POC Glucose Lactic Acid Calcium Phosphorus Magnesium Total Bilirubin AST ALT Alkaline Phosphatase Total Protein Albumin Triglycerides Arterial Blood Glucose Arterial Blood Ionized Calcium Digoxin Crossmatch See Detail 01/01/21 01/01/21 01/01/21 11:51 12:45 16:52 WBC RBC Hgb Hct MCV MCHC RDW Plt Count Lymph % (Auto) [place] % (Auto) Lymph # (Auto) [place] # (Auto) Seg Neutrophils % Seg Neuts % (Manual) Lymphocytes % (Manual) Monocytes % (Manual) Seg Neutrophils # Seg Neutrophils # Man Lymphocytes # (Manual) Monocytes # (Manual) PT 16.9 H INR 1.39 H ABG pH POC ABG pCO2 POC ABG pO2 ABG pO2 ABG HCO3 ABG O2 Saturation ABG Base Excess ABG Hemoglobin ABG Oxyhemoglobin ABG Sodium ABG Potassium ABG Chloride ABG Glucose Oxyhemoglobin Sodium Potassium Chloride Carbon Dioxide BUN Creatinine Glucose POC Glucose 157 H 177 H Lactic Acid Calcium Phosphorus Magnesium Total Bilirubin AST ALT Alkaline Phosphatase Total Protein Albumin Triglycerides Arterial Blood Glucose Arterial Blood Ionized Calcium Digoxin Crossmatch 01/01/21 01/01/21 01/01/21 17:58 17:58 20:12 WBC 26.9 H RBC 3.14 L Hgb 9.3 L Hct 29.6 L MCV MCHC RDW 17.5 H Plt Count Lymph % (Auto) [place] % (Auto) Lymph # (Auto) [place] # (Auto) Seg Neutrophils % Seg Neuts % (Manual) 84.0 H Lymphocytes % (Manual) 4.0 L Monocytes % (Manual) 12.0 H Seg Neutrophils # Seg Neutrophils # Man 22.6 H Lymphocytes # (Manual) 1.1 L Monocytes # (Manual) 3.2 H PT INR ABG pH POC ABG pCO2 POC ABG pO2 ABG pO2 ABG HCO3 ABG O2 Saturation ABG Base Excess ABG Hemoglobin ABG Oxyhemoglobin ABG Sodium ABG Potassium ABG Chloride ABG Glucose Oxyhemoglobin Sodium 136 L Potassium 6.2 H* Chloride Carbon Dioxide 21 L BUN 92 H Creatinine 10.8 H Glucose 171 H POC Glucose 288 H Lactic Acid Calcium Phosphorus Magnesium Total Bilirubin 2.10 H AST 223 H ALT 100 H Alkaline Phosphatase 206 H Total Protein 4.8 L Albumin 1.9 L Triglycerides Arterial Blood Glucose Arterial Blood Ionized Calcium Digoxin Crossmatch 01/02/21 01/02/21 01/02/21 00:12 00:45 03:05 WBC RBC Hgb Hct MCV MCHC RDW Plt Count Lymph % (Auto) [place] % (Auto) Lymph # (Auto) [place] # (Auto) Seg Neutrophils % Seg Neuts % (Manual) Lymphocytes % (Manual) Monocytes % (Manual) Seg Neutrophils # Seg Neutrophils # Man Lymphocytes # (Manual) Monocytes # (Manual) PT INR ABG pH POC ABG pCO2 POC ABG pO2 81.8 L ABG pO2 ABG HCO3 ABG O2 Saturation ABG Base Excess ABG Hemoglobin 8.0 L ABG Oxyhemoglobin ABG Sodium 129.8 L ABG Potassium 5.4 H ABG Chloride ABG Glucose 257 H Oxyhemoglobin Sodium 136 L Potassium 5.8 H Chloride 96.6 L Carbon Dioxide BUN 95 H Creatinine 11.2 H Glucose 238 H POC Glucose 223 H Lactic Acid Calcium Phosphorus Magnesium Total Bilirubin AST ALT Alkaline Phosphatase Total Protein Albumin Triglycerides Arterial Blood Glucose 257 H Arterial Blood Ionized Calcium 4.0 L Digoxin Crossmatch 01/02/21 01/02/21 01/02/21 06:25 08:00 08:00 WBC 17.5 H RBC 2.31 L Hgb 6.7 L Hct 22.1 L D MCV 96 H MCHC 30 L RDW 18.4 H Plt Count Lymph % (Auto) [place] % (Auto) Lymph # (Auto) [place] # (Auto) Seg Neutrophils % Seg Neuts % (Manual) Lymphocytes % (Manual) Monocytes % (Manual) Seg Neutrophils # Seg Neutrophils # Man Lymphocytes # (Manual) Monocytes # (Manual) PT INR ABG pH POC ABG pCO2 POC ABG pO2 ABG pO2 ABG HCO3 ABG O2 Saturation ABG Base Excess ABG Hemoglobin ABG Oxyhemoglobin ABG Sodium ABG Potassium ABG Chloride ABG Glucose Oxyhemoglobin Sodium 134 L Potassium 5.3 H Chloride 92.9 L Carbon Dioxide BUN 101 H Creatinine 10.9 H Glucose 560 H* POC Glucose 239 H Lactic Acid Calcium 7.6 L Phosphorus 6.50 H Magnesium Total Bilirubin AST ALT Alkaline Phosphatase Total Protein Albumin Triglycerides Arterial Blood Glucose Arterial Blood Ionized Calcium Digoxin Crossmatch 01/02/21 01/02/21 01/02/21 11:26 15:00 17:57 WBC RBC Hgb Hct MCV MCHC RDW Plt Count Lymph % (Auto) [place] % (Auto) Lymph # (Auto) [place] # (Auto) Seg Neutrophils % Seg Neuts % (Manual) Lymphocytes % (Manual) Monocytes % (Manual) Seg Neutrophils # Seg Neutrophils # Man Lymphocytes # (Manual) Monocytes # (Manual) PT INR ABG pH POC ABG pCO2 POC ABG pO2 ABG pO2 ABG HCO3 ABG O2 Saturation ABG Base Excess ABG Hemoglobin ABG Oxyhemoglobin ABG Sodium ABG Potassium ABG Chloride ABG Glucose Oxyhemoglobin Sodium Potassium Chloride Carbon Dioxide BUN Creatinine Glucose 241 H POC Glucose 205 H 272 H Lactic Acid Calcium Phosphorus Magnesium Total Bilirubin AST ALT Alkaline Phosphatase Total Protein Albumin Triglycerides Arterial Blood Glucose Arterial Blood Ionized Calcium Digoxin Crossmatch 01/02/21 01/02/21 01/03/21 23:25 23:43 03:45 WBC RBC Hgb Hct MCV MCHC RDW Plt Count Lymph % (Auto) [place] % (Auto) Lymph # (Auto) [place] # (Auto) Seg Neutrophils % Seg Neuts % (Manual) Lymphocytes % (Manual) Monocytes % (Manual) Seg Neutrophils # Seg Neutrophils # Man Lymphocytes # (Manual) Monocytes # (Manual) PT INR ABG pH POC ABG pCO2 48.3 H POC ABG pO2 134.4 H 79.7 L ABG pO2 ABG HCO3 ABG O2 Saturation ABG Base Excess ABG Hemoglobin 7.7 L 8.6 L ABG Oxyhemoglobin ABG Sodium 131.8 L 130.4 L ABG Potassium ABG Chloride 97.0 L ABG Glucose 218 H 238 H Oxyhemoglobin Sodium Potassium Chloride Carbon Dioxide BUN Creatinine Glucose POC Glucose 218 H Lactic Acid Calcium Phosphorus Magnesium Total Bilirubin AST ALT Alkaline Phosphatase Total Protein Albumin Triglycerides Arterial Blood Glucose 218 H 238 H Arterial Blood Ionized Calcium 4.1 L 4.0 L Digoxin Crossmatch 01/03/21 01/03/21 01/03/21 04:37 04:37 05:39 WBC 15.2 H RBC 2.38 L Hgb 7.3 L Hct 21.6 L MCV MCHC RDW 16.6 H Plt Count Lymph % (Auto) [place] % (Auto) Lymph # (Auto) [place] # (Auto) Seg Neutrophils % Seg Neuts % (Manual) Lymphocytes % (Manual) Monocytes % (Manual) Seg Neutrophils # Seg Neutrophils # Man Lymphocytes # (Manual) Monocytes # (Manual) PT INR ABG pH POC ABG pCO2 POC ABG pO2 ABG pO2 ABG HCO3 ABG O2 Saturation ABG Base Excess ABG Hemoglobin ABG Oxyhemoglobin ABG Sodium ABG Potassium ABG Chloride ABG Glucose Oxyhemoglobin Sodium 136 L Potassium Chloride 94.5 L Carbon Dioxide BUN 69 H Creatinine 8.0 H Glucose 219 H POC Glucose 222 H Lactic Acid Calcium 7.8 L Phosphorus 4.80 H D Magnesium Total Bilirubin AST ALT Alkaline Phosphatase Total Protein Albumin Triglycerides Arterial Blood Glucose Arterial Blood Ionized Calcium Digoxin Crossmatch 01/03/21 01/03/21 01/03/21 11:29 18:49 23:37 WBC RBC Hgb Hct MCV MCHC RDW Plt Count Lymph % (Auto) [place] % (Auto) Lymph # (Auto) [place] # (Auto) Seg Neutrophils % Seg Neuts % (Manual) Lymphocytes % (Manual) Monocytes % (Manual) Seg Neutrophils # Seg Neutrophils # Man Lymphocytes # (Manual) Monocytes # (Manual) PT INR ABG pH POC ABG pCO2 POC ABG pO2 ABG pO2 ABG HCO3 ABG O2 Saturation ABG Base Excess ABG Hemoglobin ABG Oxyhemoglobin ABG Sodium ABG Potassium ABG Chloride ABG Glucose Oxyhemoglobin Sodium Potassium Chloride Carbon Dioxide BUN Creatinine Glucose POC Glucose 232 H 129 H 140 H Lactic Acid Calcium Phosphorus Magnesium Total Bilirubin AST ALT Alkaline Phosphatase Total Protein Albumin Triglycerides Arterial Blood Glucose Arterial Blood Ionized Calcium Digoxin Crossmatch 01/04/21 01/04/21 01/04/21 03:22 04:38 04:38 WBC 11.1 H RBC 2.89 L Hgb 8.9 L Hct 26.2 L MCV MCHC RDW 16.1 H Plt Count Lymph % (Auto) [place] % (Auto) Lymph # (Auto) [place] # (Auto) Seg Neutrophils % Seg Neuts % (Manual) Lymphocytes % (Manual) Monocytes % (Manual) Seg Neutrophils # Seg Neutrophils # Man Lymphocytes # (Manual) Monocytes # (Manual) PT INR ABG pH POC ABG pCO2 POC ABG pO2 82.3 L ABG pO2 ABG HCO3 ABG O2 Saturation ABG Base Excess ABG Hemoglobin 8.9 L ABG Oxyhemoglobin ABG Sodium 130.5 L ABG Potassium ABG Chloride ABG Glucose 124 H Oxyhemoglobin Sodium Potassium Chloride 95.5 L Carbon Dioxide BUN 87 H Creatinine 9.7 H Glucose 118 H POC Glucose Lactic Acid Calcium 7.7 L Phosphorus Magnesium Total Bilirubin AST ALT Alkaline Phosphatase Total Protein Albumin Triglycerides Arterial Blood Glucose 124 H Arterial Blood Ionized Calcium 3.5 L Digoxin Crossmatch 01/04/21 01/04/21 01/04/21 05:39 12:04 18:04 WBC RBC Hgb Hct MCV MCHC RDW Plt Count Lymph % (Auto) [place] % (Auto) Lymph # (Auto) [place] # (Auto) Seg Neutrophils % Seg Neuts % (Manual) Lymphocytes % (Manual) Monocytes % (Manual) Seg Neutrophils # Seg Neutrophils # Man Lymphocytes # (Manual) Monocytes # (Manual) PT INR ABG pH POC ABG pCO2 POC ABG pO2 ABG pO2 ABG HCO3 ABG O2 Saturation ABG Base Excess ABG Hemoglobin ABG Oxyhemoglobin ABG Sodium ABG Potassium ABG Chloride ABG Glucose Oxyhemoglobin Sodium Potassium Chloride Carbon Dioxide BUN Creatinine Glucose POC Glucose 134 H 125 H 131 H Lactic Acid Calcium Phosphorus Magnesium Total Bilirubin AST ALT Alkaline Phosphatase Total Protein Albumin Triglycerides Arterial Blood Glucose Arterial Blood Ionized Calcium Digoxin Crossmatch 01/04/21 01/05/21 01/05/21 23:41 03:23 04:49 WBC RBC Hgb Hct MCV MCHC RDW Plt Count Lymph % (Auto) [place] % (Auto) Lymph # (Auto) [place] # (Auto) Seg Neutrophils % Seg Neuts % (Manual) Lymphocytes % (Manual) Monocytes % (Manual) Seg Neutrophils # Seg Neutrophils # Man Lymphocytes # (Manual) Monocytes # (Manual) PT INR ABG pH POC ABG pCO2 POC ABG pO2 62.8 L ABG pO2 ABG HCO3 ABG O2 Saturation ABG Base Excess ABG Hemoglobin 9.5 L ABG Oxyhemoglobin 92.0 L ABG Sodium 130.1 L ABG Potassium ABG Chloride ABG Glucose 148 H Oxyhemoglobin Sodium Potassium Chloride 96.9 L Carbon Dioxide BUN 57 H Creatinine 6.7 H Glucose 135 H POC Glucose 132 H Lactic Acid Calcium 8.0 L Phosphorus Magnesium Total Bilirubin AST ALT Alkaline Phosphatase Total Protein Albumin Triglycerides Arterial Blood Glucose 148 H Arterial Blood Ionized Calcium 4.1 L Digoxin Crossmatch 01/05/21 01/05/21 01/05/21 05:04 11:48 12:39 WBC RBC 3.03 L Hgb 9.3 L Hct 27.6 L MCV MCHC RDW 16.5 H Plt Count Lymph % (Auto) [place] % (Auto) Lymph # (Auto) [place] # (Auto) Seg Neutrophils % Seg Neuts % (Manual) Lymphocytes % (Manual) Monocytes % (Manual) Seg Neutrophils # Seg Neutrophils # Man Lymphocytes # (Manual) Monocytes # (Manual) PT INR ABG pH POC ABG pCO2 POC ABG pO2 ABG pO2 ABG HCO3 ABG O2 Saturation ABG Base Excess ABG Hemoglobin ABG Oxyhemoglobin ABG Sodium ABG Potassium ABG Chloride ABG Glucose Oxyhemoglobin Sodium Potassium Chloride Carbon Dioxide BUN Creatinine Glucose POC Glucose 147 H 162 H Lactic Acid Calcium Phosphorus Magnesium Total Bilirubin AST ALT Alkaline Phosphatase Total Protein Albumin Triglycerides Arterial Blood Glucose Arterial Blood Ionized Calcium Digoxin Crossmatch 01/05/21 01/05/21 01/06/21 17:50 23:32 04:15 WBC RBC Hgb Hct MCV MCHC RDW Plt Count Lymph % (Auto) [place] % (Auto) Lymph # (Auto) [place] # (Auto) Seg Neutrophils % Seg Neuts % (Manual) Lymphocytes % (Manual) Monocytes % (Manual) Seg Neutrophils # Seg Neutrophils # Man Lymphocytes # (Manual) Monocytes # (Manual) PT INR ABG pH POC ABG pCO2 POC ABG pO2 ABG pO2 191.0 H ABG HCO3 ABG O2 Saturation 99.2 H ABG Base Excess ABG Hemoglobin 9.0 L ABG Oxyhemoglobin ABG Sodium ABG Potassium ABG Chloride ABG Glucose Oxyhemoglobin Sodium Potassium Chloride Carbon Dioxide BUN Creatinine Glucose POC Glucose 155 H 115 H Lactic Acid Calcium Phosphorus Magnesium Total Bilirubin AST ALT Alkaline Phosphatase Total Protein Albumin Triglycerides Arterial Blood Glucose Arterial Blood Ionized Calcium Digoxin Crossmatch 01/06/21 01/06/2101/06/21 04:45 05:56 07:03 WBC RBC 2.95 L Hgb 9.1 L Hct 26.8 L MCV MCHC RDW 16.8 H Plt Count Lymph % (Auto) [place] % (Auto) Lymph # (Auto) [place] # (Auto) Seg Neutrophils % Seg Neuts % (Manual) Lymphocytes % (Manual) Monocytes % (Manual) Seg Neutrophils # Seg Neutrophils # Man Lymphocytes # (Manual) Monocytes # (Manual) PT INR ABG pH POC ABG pCO2 POC ABG pO2 ABG pO2 ABG HCO3 ABG O2 Saturation ABG Base Excess ABG Hemoglobin ABG Oxyhemoglobin ABG Sodium ABG Potassium ABG Chloride ABG Glucose Oxyhemoglobin Sodium 135 L Potassium Chloride 95.9 L Carbon Dioxide BUN 82 H Creatinine 8.7 H Glucose 127 H POC Glucose 136 H Lactic Acid Calcium 8.3 L Phosphorus Magnesium Total Bilirubin AST ALT Alkaline Phosphatase Total Protein Albumin Triglycerides Arterial Blood Glucose Arterial Blood Ionized Calcium Digoxin Crossmatch 01/06/21 01/06/21 01/06/21 07:10 11:04 13:38 WBC RBC Hgb Hct MCV MCHC RDW Plt Count Lymph % (Auto) [place] % (Auto) Lymph # (Auto) [place] # (Auto) Seg Neutrophils % Seg Neuts % (Manual) Lymphocytes % (Manual) Monocytes % (Manual) Seg Neutrophils # Seg Neutrophils # Man Lymphocytes # (Manual) Monocytes # (Manual) PT INR ABG pH POC ABG pCO2 POC ABG pO2 ABG pO2 ABG HCO3 ABG O2 Saturation ABG Base Excess ABG Hemoglobin ABG Oxyhemoglobin ABG Sodium ABG Potassium ABG Chloride ABG Glucose Oxyhemoglobin Sodium Potassium Chloride Carbon Dioxide BUN Creatinine Glucose POC Glucose 178 H 155 H Lactic Acid Calcium Phosphorus Magnesium Total Bilirubin AST ALT Alkaline Phosphatase Total Protein Albumin Triglycerides Arterial Blood Glucose Arterial Blood Ionized Calcium Digoxin Crossmatch See Detail 01/06/21 01/06/21 01/07/21 17:35 22:21 03:07 WBC RBC Hgb Hct MCV MCHC RDW Plt Count Lymph % (Auto) [place] % (Auto) Lymph # (Auto) [place] # (Auto) Seg Neutrophils % Seg Neuts % (Manual) Lymphocytes % (Manual) Monocytes % (Manual) Seg Neutrophils # Seg Neutrophils # Man Lymphocytes # (Manual) Monocytes # (Manual) PT INR ABG pH POC ABG pCO2 POC ABG pO2 ABG pO2 ABG HCO3 ABG O2 Saturation ABG Base Excess ABG Hemoglobin 11.9 L ABG Oxyhemoglobin ABG Sodium 135.6 L ABG Potassium ABG Chloride ABG Glucose 181 H Oxyhemoglobin Sodium Potassium Chloride Carbon Dioxide BUN Creatinine Glucose POC Glucose 138 H 202 H Lactic Acid Calcium Phosphorus Magnesium Total Bilirubin AST ALT Alkaline Phosphatase Total Protein Albumin Triglycerides Arterial Blood Glucose 181 H Arterial Blood Ionized Calcium 4.3 L Digoxin Crossmatch 01/07/21 01/07/21 01/07/21 04:50 05:21 08:37 WBC 12.4 H RBC Hgb 11.1 L Hct 33.3 L D MCV MCHC RDW 17.0 H Plt Count Lymph % (Auto) 3.2 L [place] % (Auto) 9.4 H Lymph # (Auto) 0.4 L [place] # (Auto) 1.2 H Seg Neutrophils % 86.6 H Seg Neuts % (Manual) Lymphocytes % (Manual) Monocytes % (Manual) Seg Neutrophils # 10.7 H Seg Neutrophils # Man Lymphocytes # (Manual) Monocytes # (Manual) PT INR ABG pH POC ABG pCO2 POC ABG pO2 ABG pO2 ABG HCO3 ABG O2 Saturation ABG Base Excess ABG Hemoglobin ABG Oxyhemoglobin ABG Sodium ABG Potassium ABG Chloride ABG Glucose Oxyhemoglobin Sodium Potassium Chloride Carbon Dioxide BUN 60 H Creatinine 6.3 H Glucose 154 H POC Glucose 177 H Lactic Acid Calcium 8.3 L Phosphorus Magnesium Total Bilirubin AST ALT Alkaline Phosphatase Total Protein Albumin Triglycerides Arterial Blood Glucose Arterial Blood Ionized Calcium Digoxin Crossmatch 01/07/21 01/07/21 01/07/21 11:21 12:19 17:11 WBC RBC Hgb Hct MCV MCHC RDW Plt Count Lymph % (Auto) [place] % (Auto) Lymph # (Auto) [place] # (Auto) Seg Neutrophils % Seg Neuts % (Manual) Lymphocytes % (Manual) Monocytes % (Manual) Seg Neutrophils # Seg Neutrophils # Man Lymphocytes # (Manual) Monocytes # (Manual) PT INR ABG pH POC ABG pCO2 POC ABG pO2 ABG pO2 ABG HCO3 ABG O2 Saturation ABG Base Excess ABG Hemoglobin ABG Oxyhemoglobin ABG Sodium ABG Potassium ABG Chloride ABG Glucose Oxyhemoglobin Sodium Potassium Chloride Carbon Dioxide BUN Creatinine Glucose POC Glucose 144 H 137 H 119 H Lactic Acid Calcium Phosphorus Magnesium Total Bilirubin AST ALT Alkaline Phosphatase Total Protein Albumin Triglycerides Arterial Blood Glucose Arterial Blood Ionized Calcium Digoxin Crossmatch 01/07/21 01/07/21 01/08/21 17:14 23:39 04:34 WBC RBC Hgb Hct MCV MCHC RDW Plt Count Lymph % (Auto) [place] % (Auto) Lymph # (Auto) [place] # (Auto) Seg Neutrophils % Seg Neuts % (Manual) Lymphocytes % (Manual) Monocytes % (Manual) Seg Neutrophils # Seg Neutrophils # Man Lymphocytes # (Manual) Monocytes # (Manual) PT INR ABG pH 7.345 L POC ABG pCO2 POC ABG pO2 ABG pO2 67.4 L ABG HCO3 ABG O2 Saturation 94.3 L ABG Base Excess -3.9 L ABG Hemoglobin 8.9 L ABG Oxyhemoglobin ABG Sodium ABG Potassium ABG Chloride ABG Glucose Oxyhemoglobin 92.3 L Sodium Potassium Chloride Carbon Dioxide 20 L BUN 93 H Creatinine 8.8 H Glucose 120 H POC Glucose 129 H Lactic Acid Calcium Phosphorus Magnesium Total Bilirubin AST ALT Alkaline Phosphatase 133 H Total Protein 5.4 L Albumin 1.9 L Triglycerides Arterial Blood Glucose Arterial Blood Ionized Calcium Digoxin Crossmatch 01/08/21 01/08/21 01/08/21 05:26 11:38 17:19 WBC RBC Hgb Hct MCV MCHC RDW Plt Count Lymph % (Auto) [place] % (Auto) Lymph # (Auto) [place] # (Auto) Seg Neutrophils % Seg Neuts % (Manual) Lymphocytes % (Manual) Monocytes % (Manual) Seg Neutrophils # Seg Neutrophils # Man Lymphocytes # (Manual) Monocytes # (Manual) PT INR ABG pH POC ABG pCO2 POC ABG pO2 ABG pO2 ABG HCO3 ABG O2 Saturation ABG Base Excess ABG Hemoglobin ABG Oxyhemoglobin ABG Sodium ABG Potassium ABG Chloride ABG Glucose Oxyhemoglobin Sodium Potassium Chloride Carbon Dioxide BUN Creatinine Glucose POC Glucose 125 H 146 H 136 H Lactic Acid Calcium Phosphorus Magnesium Total Bilirubin AST ALT Alkaline Phosphatase Total Protein Albumin Triglycerides Arterial Blood Glucose Arterial Blood Ionized Calcium Digoxin Crossmatch 01/08/21 01/09/21 01/09/21 23:52 05:13 05:21 WBC RBC Hgb Hct MCV MCHC RDW Plt Count Lymph % (Auto) [place] % (Auto) Lymph # (Auto) [place] # (Auto) Seg Neutrophils % Seg Neuts % (Manual) Lymphocytes % (Manual) Monocytes % (Manual) Seg Neutrophils # Seg Neutrophils # Man Lymphocytes # (Manual) Monocytes # (Manual) PT INR ABG pH POC ABG pCO2 POC ABG pO2 ABG pO2 ABG HCO3 ABG O2 Saturation ABG Base Excess ABG Hemoglobin ABG Oxyhemoglobin ABG Sodium ABG Potassium ABG Chloride ABG Glucose Oxyhemoglobin Sodium Potassium Chloride Carbon Dioxide 16 L BUN 123 H Creatinine 10.8 H Glucose 145 H POC Glucose 143 H 144 H Lactic Acid Calcium Phosphorus 5.00 H D Magnesium 2.40 H Total Bilirubin AST ALT Alkaline Phosphatase Total Protein Albumin Triglycerides Arterial Blood Glucose Arterial Blood Ionized Calcium Digoxin Crossmatch 01/09/21 01/09/21 01/09/21 12:08 17:20 23:56 WBC RBC Hgb Hct MCV MCHC RDW Plt Count Lymph % (Auto) [place] % (Auto) Lymph # (Auto) [place] # (Auto) Seg Neutrophils % Seg Neuts % (Manual) Lymphocytes % (Manual) Monocytes % (Manual) Seg Neutrophils # Seg Neutrophils # Man Lymphocytes # (Manual) Monocytes # (Manual) PT INR ABG pH POC ABG pCO2 POC ABG pO2 ABG pO2 ABG HCO3 ABG O2 Saturation ABG Base Excess ABG Hemoglobin ABG Oxyhemoglobin ABG Sodium ABG Potassium ABG Chloride ABG Glucose Oxyhemoglobin Sodium Potassium Chloride Carbon Dioxide BUN Creatinine Glucose POC Glucose 153 H 160 H 158 H Lactic Acid Calcium Phosphorus Magnesium Total Bilirubin AST ALT Alkaline Phosphatase Total Protein Albumin Triglycerides Arterial Blood Glucose Arterial Blood Ionized Calcium Digoxin Crossmatch 01/10/21 01/10/21 01/10/21 04:52 05:44 07:41 WBC RBC Hgb Hct MCV MCHC RDW Plt Count Lymph % (Auto) [place] % (Auto) Lymph # (Auto) [place] # (Auto) Seg Neutrophils % Seg Neuts % (Manual) Lymphocytes % (Manual) Monocytes % (Manual) Seg Neutrophils # Seg Neutrophils # Man Lymphocytes # (Manual) Monocytes # (Manual) PT INR ABG pH POC ABG pCO2 POC ABG pO2 ABG pO2 ABG HCO3 ABG O2 Saturation ABG Base Excess ABG Hemoglobin ABG Oxyhemoglobin ABG Sodium ABG Potassium ABG Chloride ABG Glucose Oxyhemoglobin Sodium 135 L Potassium 3.5 L D Chloride 95.0 L Carbon Dioxide 21 L BUN 93 H Creatinine 8.3 H Glucose 127 H POC Glucose 135 H 157 H Lactic Acid Calcium Phosphorus Magnesium Total Bilirubin AST ALT Alkaline Phosphatase Total Protein Albumin Triglycerides Arterial Blood Glucose Arterial Blood Ionized Calcium Digoxin Crossmatch 01/10/21 01/10/21 01/10/21 09:26 12:03 17:44 WBC 18.2 H RBC 3.14 L Hgb 9.7 L Hct 28.2 L MCV MCHC RDW 16.5 H Plt Count Lymph % (Auto) [place] % (Auto) Lymph # (Auto) [place] # (Auto) Seg Neutrophils % Seg Neuts % (Manual) 95.0 H Lymphocytes % (Manual) 3.0 L Monocytes % (Manual) Seg Neutrophils # Seg Neutrophils # Man 17.3 H Lymphocytes # (Manual) 0.5 L Monocytes # (Manual) PT INR ABG pH POC ABG pCO2 POC ABG pO2 ABG pO2 ABG HCO3 ABG O2 Saturation ABG Base Excess ABG Hemoglobin ABG Oxyhemoglobin ABG Sodium ABG Potassium ABG Chloride ABG Glucose Oxyhemoglobin Sodium Potassium Chloride Carbon Dioxide BUN Creatinine Glucose POC Glucose 163 H 171 H Lactic Acid Calcium Phosphorus Magnesium Total Bilirubin AST ALT Alkaline Phosphatase Total Protein Albumin Triglycerides Arterial Blood Glucose Arterial Blood Ionized Calcium Digoxin Crossmatch 01/10/21 01/11/21 01/11/21 23:50 05:18 05:18 WBC RBC Hgb Hct MCV MCHC RDW Plt Count Lymph % (Auto) [place] % (Auto) Lymph # (Auto) [place] # (Auto) Seg Neutrophils % Seg Neuts % (Manual) Lymphocytes % (Manual) Monocytes % (Manual) Seg Neutrophils # Seg Neutrophils # Man Lymphocytes # (Manual) Monocytes # (Manual) PT INR ABG pH POC ABG pCO2 POC ABG pO2 ABG pO2 ABG HCO3 ABG O2 Saturation ABG Base Excess ABG Hemoglobin ABG Oxyhemoglobin ABG Sodium ABG Potassium ABG Chloride ABG Glucose Oxyhemoglobin Sodium 136 L Potassium Chloride 94.6 L Carbon Dioxide 19 L BUN 145 H Creatinine 10.6 H Glucose 152 H POC Glucose 151 H Lactic Acid Calcium Phosphorus 6.00 H D Magnesium Total Bilirubin AST ALT Alkaline Phosphatase Total Protein Albumin Triglycerides Arterial Blood Glucose Arterial Blood Ionized Calcium Digoxin 0.8 L Crossmatch 01/11/21 01/11/21 01/11/21 05:18 05:19 11:28 WBC 17.4 H RBC 3.34 L Hgb 10.2 L Hct 29.7 L MCV MCHC RDW 15.9 H Plt Count Lymph % (Auto) [place] % (Auto) Lymph # (Auto) [place] # (Auto) Seg Neutrophils % Seg Neuts % (Manual) Lymphocytes % (Manual) Monocytes % (Manual) Seg Neutrophils # Seg Neutrophils # Man Lymphocytes # (Manual) Monocytes # (Manual) PT INR ABG pH POC ABG pCO2 POC ABG pO2 ABG pO2 ABG HCO3 ABG O2 Saturation ABG Base Excess ABG Hemoglobin ABG Oxyhemoglobin ABG Sodium ABG Potassium ABG Chloride ABG Glucose Oxyhemoglobin Sodium Potassium Chloride Carbon Dioxide BUN Creatinine Glucose POC Glucose 149 H 178 H Lactic Acid Calcium Phosphorus Magnesium Total Bilirubin AST ALT Alkaline Phosphatase Total Protein Albumin Triglycerides Arterial Blood Glucose Arterial Blood Ionized Calcium Digoxin Crossmatch 01/11/21 01/11/21 01/12/21 17:31 23:14 05:18 WBC RBC Hgb Hct MCV MCHC RDW Plt Count Lymph % (Auto) [place] % (Auto) Lymph # (Auto) [place] # (Auto) Seg Neutrophils % Seg Neuts % (Manual) Lymphocytes % (Manual) Monocytes % (Manual) Seg Neutrophils # Seg Neutrophils # Man Lymphocytes # (Manual) Monocytes # (Manual) PT INR ABG pH POC ABG pCO2 POC ABG pO2 ABG pO2 ABG HCO3 ABG O2 Saturation ABG Base Excess ABG Hemoglobin ABG Oxyhemoglobin ABG Sodium ABG Potassium ABG Chloride ABG Glucose Oxyhemoglobin Sodium Potassium Chloride Carbon Dioxide BUN Creatinine Glucose POC Glucose 158 H 145 H 148 H Lactic Acid Calcium Phosphorus Magnesium Total Bilirubin AST ALT Alkaline Phosphatase Total Protein Albumin Triglycerides Arterial Blood Glucose Arterial Blood Ionized Calcium Digoxin Crossmatch 01/12/21 01/12/21 01/12/21 06:50 10:45 13:34 WBC RBC Hgb Hct MCV MCHC RDW Plt Count Lymph % (Auto) [place] % (Auto) Lymph # (Auto) [place] # (Auto) Seg Neutrophils % Seg Neuts % (Manual) Lymphocytes % (Manual) Monocytes % (Manual) Seg Neutrophils # Seg Neutrophils # Man Lymphocytes # (Manual) Monocytes # (Manual) PT INR ABG pH POC ABG pCO2 POC ABG pO2 ABG pO2 ABG HCO3 ABG O2 Saturation ABG Base Excess ABG Hemoglobin ABG Oxyhemoglobin ABG Sodium ABG Potassium ABG Chloride ABG Glucose Oxyhemoglobin Sodium Potassium 2.9 L* D Chloride 94.8 L Carbon Dioxide BUN 102 H Creatinine 8.3 H Glucose 139 H POC Glucose 151 H 134 H Lactic Acid Calcium 8.1 L Phosphorus 5.00 H Magnesium Total Bilirubin AST ALT Alkaline Phosphatase Total Protein Albumin Triglycerides Arterial Blood Glucose Arterial Blood Ionized Calcium Digoxin Crossmatch 01/12/21 01/12/21 01/13/21 16:59 23:06 03:45 WBC RBC Hgb Hct MCV MCHC RDW Plt Count Lymph % (Auto) [place] % (Auto) Lymph # (Auto) [place] [place] # (Auto) Seg Neutrophils % Seg Neuts % (Manual) Lymphocytes % (Manual) Monocytes % (Manual) Seg Neutrophils # Seg Neutrophils # Man Lymphocytes # (Manual) Monocytes # (Manual) PT INR ABG pH POC ABG pCO2 POC ABG pO2 ABG pO2 ABG HCO3 ABG O2 Saturation ABG Base Excess ABG Hemoglobin ABG Oxyhemoglobin ABG Sodium ABG Potassium ABG Chloride ABG Glucose Oxyhemoglobin Sodium 136 L Potassium 3.4 L Chloride 92.6 L Carbon Dioxide BUN 134 H Creatinine 10.4 H Glucose 126 H POC Glucose 108 H 135 H Lactic Acid Calcium 8.3 L Phosphorus 5.60 H Magnesium 1.50 L Total Bilirubin AST ALT Alkaline Phosphatase Total Protein Albumin Triglycerides Arterial Blood Glucose Arterial Blood Ionized Calcium Digoxin Crossmatch 01/13/21 01/13/21 01/13/21 03:45 05:55 11:59 WBC 17.6 H RBC 3.33 L Hgb 10.2 L Hct 29.5 L MCV MCHC 35 H RDW 15.5 H Plt Count Lymph % (Auto) 4.4 L [place] % (Auto) 10.3 H Lymph # (Auto) 0.8 L [place] # (Auto) 1.8 H Seg Neutrophils % 84.2 H Seg Neuts % (Manual) Lymphocytes % (Manual) Monocytes % (Manual) Seg Neutrophils # 14.8 H Seg Neutrophils # Man Lymphocytes # (Manual) Monocytes # (Manual) PT INR ABG pH POC ABG pCO2 POC ABG pO2 ABG pO2 ABG HCO3 ABG O2 Saturation ABG Base Excess ABG Hemoglobin ABG Oxyhemoglobin ABG Sodium ABG Potassium ABG Chloride ABG Glucose Oxyhemoglobin Sodium Potassium Chloride Carbon Dioxide BUN Creatinine Glucose POC Glucose 134 H 141 H Lactic Acid Calcium Phosphorus Magnesium Total Bilirubin AST ALT Alkaline Phosphatase Total Protein Albumin Triglycerides Arterial Blood Glucose Arterial Blood Ionized Calcium Digoxin Crossmatch 01/13/21 01/14/21 01/14/21 23:09 05:39 05:57 WBC RBC Hgb Hct MCV MCHC RDW Plt Count Lymph % (Auto) [place] % (Auto) Lymph # (Auto) [place] # (Auto) Seg Neutrophils % Seg Neuts % (Manual) Lymphocytes % (Manual) Monocytes % (Manual) Seg Neutrophils # Seg Neutrophils # Man Lymphocytes # (Manual) Monocytes # (Manual) PT INR ABG pH POC ABG pCO2 POC ABG pO2 ABG pO2 ABG HCO3 ABG O2 Saturation ABG Base Excess ABG Hemoglobin ABG Oxyhemoglobin ABG Sodium ABG Potassium ABG Chloride ABG Glucose Oxyhemoglobin Sodium Potassium Chloride 97.6 L Carbon Dioxide BUN 81 H Creatinine 7.6 H Glucose 193 H POC Glucose 106 H 190 H Lactic Acid Calcium 8.2 L Phosphorus 4.60 H Magnesium Total Bilirubin AST ALT Alkaline Phosphatase Total Protein Albumin Triglycerides Arterial Blood Glucose Arterial Blood Ionized Calcium Digoxin Crossmatch 01/14/21 01/14/21 01/14/21 10:00 16:56 16:59 WBC 17.0 H RBC 3.10 L Hgb 9.6 L Hct 27.4 L MCV MCHC 35 H RDW 15.6 H Plt Count Lymph % (Auto) [place] % (Auto) Lymph # (Auto) [place] # (Auto) Seg Neutrophils % Seg Neuts % (Manual) Lymphocytes % (Manual) Monocytes % (Manual) Seg Neutrophils # Seg Neutrophils # Man Lymphocytes # (Manual) Monocytes # (Manual) PT INR ABG pH POC ABG pCO2 POC ABG pO2 ABG pO2 ABG HCO3 ABG O2 Saturation ABG Base Excess ABG Hemoglobin ABG Oxyhemoglobin ABG Sodium ABG Potassium ABG Chloride ABG Glucose Oxyhemoglobin Sodium Potassium Chloride Carbon Dioxide BUN Creatinine Glucose POC Glucose 37 L 34 L Lactic Acid Calcium Phosphorus Magnesium Total Bilirubin AST ALT Alkaline Phosphatase Total Protein Albumin Triglycerides Arterial Blood Glucose Arterial Blood Ionized Calcium Digoxin Crossmatch 01/14/21 01/14/21 01/14/21 17:02 18:34 23:17 WBC RBC Hgb Hct MCV MCHC RDW Plt Count Lymph % (Auto) [place] % (Auto) Lymph # (Auto) [place] # (Auto) Seg Neutrophils % Seg Neuts % (Manual) Lymphocytes % (Manual) Monocytes % (Manual) Seg Neutrophils # Seg Neutrophils # Man Lymphocytes # (Manual) Monocytes # (Manual) PT INR ABG pH POC ABG pCO2 POC ABG pO2 ABG pO2 ABG HCO3 ABG O2 Saturation ABG Base Excess ABG Hemoglobin ABG Oxyhemoglobin ABG Sodium ABG Potassium ABG Chloride ABG Glucose Oxyhemoglobin Sodium Potassium Chloride Carbon Dioxide BUN Creatinine Glucose POC Glucose 35 L 143 H 53 L Lactic Acid Calcium Phosphorus Magnesium Total Bilirubin AST ALT Alkaline Phosphatase Total Protein Albumin Triglycerides Arterial Blood Glucose Arterial Blood Ionized Calcium Digoxin Crossmatch 01/15/21 01/15/21 01/15/21 00:34 04:00 04:00 WBC 15.9 H RBC 3.02 L Hgb 9.3 L Hct 27.3 L MCV MCHC RDW 15.6 H Plt Count Lymph % (Auto) [place] % (Auto) Lymph # (Auto) [place] # (Auto) Seg Neutrophils % Seg Neuts % (Manual) Lymphocytes % (Manual) Monocytes % (Manual) Seg Neutrophils # Seg Neutrophils # Man Lymphocytes # (Manual) Monocytes # (Manual) PT INR ABG pH POC ABG pCO2 POC ABG pO2 ABG pO2 ABG HCO3 ABG O2 Saturation ABG Base Excess ABG Hemoglobin ABG Oxyhemoglobin ABG Sodium ABG Potassium ABG Chloride ABG Glucose Oxyhemoglobin Sodium 136 L Potassium Chloride 94.3 L Carbon Dioxide BUN 117 H Creatinine 9.9 H Glucose 217 H POC Glucose 181 H Lactic Acid Calcium 8.3 L Phosphorus Magnesium Total Bilirubin AST ALT Alkaline Phosphatase Total Protein Albumin Triglycerides Arterial Blood Glucose Arterial Blood Ionized Calcium Digoxin Crossmatch 01/15/21 01/15/21 05:29 11:51 WBC RBC Hgb Hct MCV MCHC RDW Plt Count Lymph % (Auto) [place] % (Auto) Lymph # (Auto) [place] # (Auto) Seg Neutrophils % Seg Neuts % (Manual) Lymphocytes % (Manual) Monocytes % (Manual) Seg Neutrophils # Seg Neutrophils # Man Lymphocytes # (Manual) Monocytes # (Manual) PT INR ABG pH POC ABG pCO2 POC ABG pO2 ABG pO2 ABG HCO3 ABG O2 Saturation ABG Base Excess ABG Hemoglobin ABG Oxyhemoglobin ABG Sodium ABG Potassium ABG Chloride ABG Glucose Oxyhemoglobin Sodium Potassium Chloride Carbon Dioxide BUN Creatinine Glucose POC Glucose 221 H 62 L Lactic Acid Calcium Phosphorus Magnesium Total Bilirubin AST ALT Alkaline Phosphatase Total Protein Albumin Triglycerides Arterial Blood Glucose Arterial Blood Ionized Calcium Digoxin Crossmatch Allied health notes reviewed: nursing
--- NOTE | 2021-01-15 15:11 | Progress Note ---
Subjective Date of service: 01/15/21 Principal diagnosis: Ac hypoxemic resp failure; Severe Sepsis; Peritonitis; Acute SBO; ESRD; CHF Interval history: Principal diagnosis: Ac hypoxemic resp failure; Severe Sepsis; Peritonitis; Acute SBO; ESRD; CHF Interval history: No new CV findings Assessment and Plan - Patient Problems (1) Atrial fibrillation Current Visit: Yes Status: Acute Plan to address problem: Continue medical therapy as previously outlined for paroxysmal atrial fibril lation. Objective Vital Signs Temp Pulse Pulse Resp BP Pulse Ox 01/15/21 13:39 75 135/61 01/15/21 13:00 74 13 153/70 92 01/15/21 12:07 74 123/62 01/15/21 12:00 98.0 F 77 17 123/62 96 01/15/21 11:00 85 23 126/62 96 01/15/21 10:00 71 15 133/50 99 01/15/21 09:05 85 138/58 01/15/21 09:04 85 138/58 01/15/21 09:00 81 17 138/58 97 01/15/21 08:00 98.1 F 89 13 134/60 98 01/15/21 07:00 81 17 139/60 96 01/15/21 06:54 17 01/15/21 06:24 19 01/15/21 06:00 85 16 148/81 98 01/15/21 05:59 86 150/77 01/15/21 05:58 86 155/77 01/15/21 05:00 82 13 167/75 97 01/15/21 04:30 84 01/15/21 04:00 98.0 F 73 84 13 158/68 97 01/15/21 03:00 72 14 152/72 97 01/15/21 02:45 78 156/80 01/15/21 02:00 82 16 159/78 97 01/15/21 01:00 78 12 142/69 98 01/15/21 00:20 85 01/15/21 00:00 87 18 138/64 95 01/14/21 23:30 97.4 F L 01/14/21 23:16 66 161/71 01/14/21 23:00 66 14 149/78 98 01/14/21 22:00 91 H 15 145/70 97 01/14/21 21:57 81 145/70 01/14/21 21:00 73 16 137/62 98 01/14/21 20:34 98 01/14/21 20:16 78 01/14/21 20:00 98.6 F 83 83 14 144/67 99 01/14/21 19:02 90 16 137/68 98 01/14/21 19:00 90 22 137/68 98 01/14/21 18:00 97 H 13 136/49 97 01/14/21 17:35 80 176/87 01/14/21 17:30 81 176/87 01/14/21 17:29 74 176/71 01/14/21 17:00 81 18 167/64 01/14/21 16:00 98.8 F 82 77 17 161/73 97 - Physical Examination General: No Apparent Distress HEENT: Positive: PERRL Neck: Positive: neck supple Cardiac: Positive: Reg Rate and Rhythm, S1/S2 Lungs: Positive: clear to auscultation Neuro: Positive: Weakness (Sedated, on the vent) Abdomen: Positive: Other (post op) Skin: Positive: Clear Extremities: Present: normal. Absent: edema - Labs and Meds CBC 01/15/21 Range/Units 04:00 WBC 15.9 H (4.5-11.0) K/mm3 RBC 3.02 L (3.65-5.03) M/mm3 Hgb 9.3 L (11.8-15.2) gm/dl Hct 27.3 L (35.5-45.6) % Plt Count 322 (140-440) K/mm3 Comprehensive Metabolic Panel 01/15/21 Range/Units 04:00 Sodium 136 L (137-145) mmol/L Potassium 4.1 (3.6-5.0) mmol/L Chloride 94.3 L (98-107) mmol/L Carbon Dioxide 23 (22-30) mmol/L BUN 117 H (9-20) mg/dL Creatinine 9.9 H (0.8-1.3) mg/dL Glucose 217 H (75-100) mg/dL Calcium 8.3 L (8.4-10.2) mg/dL - Allied health notes Allied health notes reviewed: nursing
--- NOTE | 2021-01-15 15:52 | Event Note ---
I spoke to the patient's daughter Cristopher Simeon at [phone] and informed her of the decrease in leuokocytosis and gastric output. I also informed her of the the need to straight cath him and that we will continue to BladderScan him and assess the need to replace the saravia. She stated her mother will be at the hospital visit on Saturday. She asked if her father has a telephone in his room. I informed her that I will ask RN if he would be able to call her.
--- NOTE | 2021-01-15 17:21 | Progress Note ---
Assessment and Plan Assessment: * ESRD previouaslyon peritoneal dialysis; now on back up HD (on peritoneal dialysis for 2 years with no history of peritonitis) * Small bowel obstruction --s/p ex-lap with jejuno-ileal anastamosis --s/p ex lap with extensive lysis of adhesions and two small bowel resections with primary anastamosis for SBO with necrotic segment small bowel. --s/p ex lap, resection of perforated anastamosis, washout and abthera wound vac placement. --s/p ex lap with right hemicolectomy. * Acute respiratory failure * Septic shock - resolved * Bacteremia - resolved * Hyperkalemia * Anemia of ESRD * Atrial fibrilation, new onset * Post op ileus Plan: * Continue HD MWF via left IJ permcath (12/27) * 4K bath with dialysis * UF as tolerated * Epogen 10k units w/ dialysis * Rate control per cardiology * Abx per primary team/ID * Nutrition per primary team * Maintatin MAP >65 * AM labs * Note recommendation for CT with contrast. HD should not delay care/diagnosis - do not hold CT for HD coordination if study is needed. Subjective Date of service: 01/15/21 Principal diagnosis: Ac hypoxemic resp failure; Severe Sepsis; Peritonitis; Acute SBO; ESRD; CHF Interval history: No acute events overnight Objective - Vital Signs Vital signs: Vital Signs - 12hr 01/15/21 01/15/21 01/15/21 05:58 05:59 06:00 Temperature Pulse Rate 86 86 85 Respiratory 16 Rate Blood Pressure 155/77 150/77 148/81 O2 Sat by Pulse 98 Oximetry 01/15/21 01/15/21 01/15/21 06:24 06:54 07:00 Temperature Pulse Rate 81 Respiratory 19 17 17 Rate Blood Pressure 139/60 O2 Sat by Pulse 96 Oximetry 01/15/21 01/15/21 01/15/21 08:00 09:00 09:04 Temperature 98.1 F Pulse Rate 89 81 85 Respiratory 13 17 Rate Blood Pressure 134/60 138/58 138/58 O2 Sat by Pulse 98 97 Oximetry 01/15/21 01/15/21 01/15/21 09:05 10:00 11:00 Temperature Pulse Rate 85 71 85 Respiratory 15 23 Rate Blood Pressure 138/58 133/50 126/62 O2 Sat by Pulse 99 96 Oximetry 01/15/21 01/15/21 01/15/21 12:00 12:07 13:00 Temperature 98.0 F Pulse Rate 77 74 74 Respiratory 17 13 Rate Blood Pressure 123/62 123/62 153/70 O2 Sat by Pulse 96 92 Oximetry 01/15/21 01/15/21 01/15/21 13:39 14:00 15:00 Temperature Pulse Rate 75 82 78 Respiratory 21 15 Rate Blood Pressure 135/61 133/58 141/65 O2 Sat by Pulse 97 95 Oximetry - General Appearance General appearance: well-developed, well-nourished EENT: ATNC, other (NGT in place) Respiratory: Present: Clear to Ascultation Cardiology: regular, S1S2 Gastrointestinal: normal, no tenderness, no distended Integumentary: no rash, warm and dry Psychiatric: cooperative - Lab 01/15/21 04:00 01/15/21 04:00 Most recent lab results ABG pH 7.345 pH Units (7.350-7.450) L 01/07/21 17:14 ABG pCO2 40.3 mm Hg 01/07/21 17:14 ABG pO2 67.4 mm Hg (80.0-90.0) L 01/07/21 17:14 ABG HCO3 21.5 mmol/L (20.0-26.0) 01/07/21 17:14 ABG O2 Saturation 94.3 % (95.0-99.0) L 01/07/21 17:14 Calcium 8.3 mg/dL (8.4-10.2) L 01/15/21 04:00 Phosphorus 4.60 mg/dL (2.5-4.5) H 01/14/21 05:39 Magnesium 2.20 mg/dL (1.7-2.3) 01/14/21 05:39 Medications & Allergies - Medications Allergies/Adverse Reactions: Allergies No Known Allergies Allergy (Verified 06/09/20 15:27) Home Medications: Home Medications Medication Instructions Recorded Confirmed Last Taken Type Albuterol Mdi (or & Nicu Only) 2 puff IH QID PRN #1 inhalation 04/01/17 11/01/20 10/31/20 09:00 Rx [ProAir HFA Inhaler] Calcium Acetate 667 mg PO DAILY 04/20/20 11/01/20 10/31/20 09:00 History Centrum Men's Tablet 1 tab PO DAILY 04/20/20 11/01/20 10/31/20 09:00 History Cinacalcet 30 mg PO DAILY 04/20/20 11/01/20 10/31/20 09:00 History Dialyvite with Zinc Tablet 1 tab PO DAILY 04/20/20 11/01/20 10/31/20 09:00 History Magnesium 250 mg PO BID 04/20/20 11/01/20 10/31/20 17:00 History Triamcinolone 0.1% 1 1000units TRANSDERMA DAILY 04/20/20 11/01/20 10/31/20 09:00 History Vit B12/Folic Acid/B6/Aa No.15 1,000 mg PO DAILY 04/20/20 11/01/20 10/31/20 09:00 History amLODIPine 10 mg PO DAILY 06/09/20 11/01/20 10/31/20 09:00 History AtorvaSTATin 40 mg PO HS 11/01/20 11/01/20 10/31/20 21:00 History Benadryl 25 mg PO HS 11/01/20 11/01/20 10/31/20 21:00 History Diclofenac 1 TRANSDERMA QID 11/01/20 10/31/20 19:00 History Fluticasone Propionate 1 spray INTRANASAL DAILY 11/01/20 11/01/20 10/31/20 09:00 History Vitamin D3 2,000 units 11/01/20 10/31/20 09:00 History carvediloL 12.5 mg PO DAILY 11/01/20 11/01/20 10/31/20 09:00 History hydrALAZINE 100 mg PO TID 11/01/20 11/01/20 10/31/20 19:00 History Active Medications: Generic Name Dose Route Start Last Admin Trade Name Freq PRN Reason Stop Dose Admin Acetaminophen 650 mg 12/31/20 15:30 12/31/20 15:13 Acetaminophen 650 Mg Rect Supp IA 650 mg Q6H PRN Administration Non Cardiac Pain or Temp>100.5 Clonidine HCl 0.2 mg 01/11/21 10:00 01/11/21 09:24 Clonidine Tts 0.2 Mg/24 Hr Patch TD 0.2 mg We THOMAS Administration Dextrose 50 ml 01/14/21 17:59 01/15/21 12:08 Dextrose 50% In Water (25gm) 50 Ml Syringe IV 15 ml Q30MIN PRN Administration Hypoglycemia Protocol Digoxin 0.125 mg 01/09/21 12:00 01/15/21 12:07 Digoxin 0.5 Mg/2 Ml Inj IV 0.125 mg Q48H THOMAS Administration Famotidine 10 mg 12/24/20 13:00 01/15/21 09:03 Famotidine 20 Mg/2 Ml Inj IV 10 mg BID THOMAS Administration Glycopyrrolate 0.2 mg 01/13/21 15:00 01/15/21 12:30 Glycopyrrolate 0.4 Mg/2 Ml Inj IV 01/16/21 14:59 0.2 mg Q6H THOMAS Administration Haloperidol Lactate 5 mg 12/29/20 14:16 01/09/21 01:41 Haloperidol Lactate 5 Mg/1 Ml Inj IV 5 mg Q12H PRN Administration Agitation Heparin Sodium (Porcine) 5,000 unit 12/24/20 10:00 01/15/21 09:03 Heparin 5,000 Unit/1 Ml Vial SUB-Q 5,000 unit Q12HR THOMAS Administration Hydralazine HCl 10 mg 01/10/21 14:00 01/15/21 13:39 Hydralazine 20 Mg/1 Ml Inj IV 10 mg Q4HR THOMAS Administration Hydromorphone HCl 0.25 mg 01/09/21 10:53 01/15/21 06:24 Hydromorphone 1 Mg/1 Ml Inj IV 0.25 mg Q6H PRN Administration Pain , Severe (7-10) Hydrophilic Ointment 1 applic 12/31/20 06:39 01/11/21 21:28 Lip Therapy Vaseline TP 1 applic Q2HR PRN Administration Dry Lips Sodium Chloride 100 mls @ 999 mls/hr 01/12/21 09:20 Nacl 0.9% IV [place] PRN Hypotension Octreotide Acetate 500 mcg/ 101 mls @ 5.05 mls/hr 01/13/21 11:00 01/15/21 03:22 Sodium Chloride IV 25 mcg/hr TITR THOMAS 5.05 mls/hr Administration Protocol 25 MCG/HR Piperacillin Sod/Tazobactam Sod 2.25 gm in 50 mls @ 100 mls/hr 01/13/21 12:00 01/15/21 12:10 Zosyn/Ns 2.25 Gm/50ml IV 100 mls/hr Q8H [facility] Administration Protocol Amino Acids/Electrolytes/Dextrose 2,016 mls @ 0 mls/hr 01/15/21 20:00 Tpn Adult IV DAILY@1999 [facility] Protocol As Directed Insulin Glargine 10 units 01/16/21 22:00 Insulin Glargine 100 Units/Ml SUB-Q QHS [facility] Insulin Human Lispro 0 unit 01/03/21 12:00 01/15/21 05:37 Insulin Lispro 100 Unit/Ml SUB-Q Not Given Q6HR [facility] Protocol Metoprolol Tartrate 5 mg 12/30/20 12:00 01/15/21 13:39 Metoprolol Tartrate 5 Mg/5 Ml Inj IV 5 mg Q4HR [facility] Administration Multi-Ingred Cream/Lotion/Oil/Oint 1 applic 12/31/20 06:39 Mineral Oil/Petrolatum, White Ophth Oint 3.5 Gm OU Q4HR PRN Dry Eye(s) Scopolamine 1 each 01/15/21 11:00 01/15/21 12:00 Scopolamine Transdermal Patch 72 Hr TD 1 each Q3D THOMAS Administration Sodium Chloride 10 ml 12/22/20 22:00 01/15/21 09:06 Sodium Chloride 0.9% 10 Ml Flush Syringe IV 10 ml BID THOMAS Administration Sodium Chloride 10 ml 12/22/20 19:42 01/09/21 17:27 Sodium Chloride 0.9% 10 Ml Flush Syringe IV 10 ml PRN PRN Administration LINE FLUSH
--- NOTE | 2021-01-15 18:49 | Progress Note ---
Assessment and Plan Cultures: 12/22/2020 blood culture: Streptococcus bovis, Prevotella 12/22/2020 PD fluid culture: No growth 12/24/2020 tracheal aspirate culture: G[place]yn albicans (likely a colonizer) 12/24/2020 blood culture: No growth 12/31/2020 sputum culture: No growth A/P: 60-year-old male with ESRD on PD, Crohn's disease, CHF, gastroesophageal reflux disease was admitted to the hospital with complaints of abdominal pain and fever: #Severe sepsis with shock: Remarkable improvement, off pressors (on Levophed and vasopressin), leukocytosis improving. Secondary to small bowel obstruction/necrotic bowel with associated peritonitis. Status post exploratory laparotomy on 12/23/2020 with extensive lysis, primary anastomosis, found to have necrotic segment of small bowel. #Small bowel obstruction/necrotic bowel: with concern for PD associated peritonitis: Nephrology and general surgery following. Status post exploratory laparotomy on 12/23/2020 with extensive lysis, primary anastomosis, found to have necrotic segment of small bowel. PD catheter remains in place. S/p ex lap, resection of perforated anastamosis, washout and abthera wound vac placement on 01/01. Repeat CT abdomen shows no new abscesses, noted small free fluid. S/p Exploratory laparotomy, Right hemicolectomy, Peritoneal lavage, Partial ome ntectomy, ABThera wound VAC placement on 01/03/2021. #Streptococcus bovis bacteremia and Prevotella bacteremia: secondary to above. TTE without obvious vegetations. Repeat blood cultures negative. #ESRD: Renally dose antibiotics. Used to be on PD, cath remains in place. Now on HD. #Elevated LFTs: Secondary to sepsis. #Acute respiratory failure: extubated, then re-intubated 12/31/2020. #Anemia: Severe. Recs: -On TPN -Continue Zosyn for now pending repeat CT scan -Given elevated recommend repeat CT abdo/pelvis with contrast. Given ESRD recommend co-ordinating with nephrology/dialysis Dr. Denny taking over tomorrow. MD [facility] O: [phone] F: [phone] Subjective Date of service: 01/15/21 Principal diagnosis: Ac hypoxemic resp failure; Severe Sepsis; Peritonitis; Acute SBO; ESRD; CHF Interval history: Afebrile, white count 15.9. Objective - Exam Narrative Exam: Narrative Exam: General appearance: Awake, alert Eyes: anicteric sclerae, moist conjunctivae; no lid-lag; PERRLA HENT: Normocephalic, Atraumatic; normal external ears, nares open, oropharynx limited Neck: supple, tracheal midline, no JVD Lungs: Coarse breath sounds bilaterally CV: Tachycardic Abdomen: Soft, tender. Extremities: no edema, no cyanosis Skin: No rash. Psych: No agitation Neuro: No agitation - Constitutional Vitals: Vital Signs Temp Pulse Resp BP Pulse Ox 98.6 F 68 16 151/67 96 01/15/21 16:00 01/15/21 18:15 01/15/21 18:00 01/15/21 18:15 01/15/21 18:00 Temperature -Last 24 Hours Temperature 98.6 F Temperature 98.0 F Temperature 98.1 F Temperature 98.0 F Temperature 97.4 F Temperature 98.6 F - Labs CBC & Chem 7: 01/15/21 04:00 01/15/21 04:00 Labs: Abnormal lab results 01/14/21 01/14/21 01/14/21 Range/Units 16:56 16:59 17:02 WBC (4.5-11.0) K/mm3 RBC (3.65-5.03) M/mm3 Hgb (11.8-15.2) gm/dl Hct (35.5-45.6) % RDW (13.2-15.2) % Sodium (137-145) mmol/L Chloride (98-107) mmol/L BUN (9-20) mg/dL Creatinine (0.8-1.3) mg/dL Glucose (75-100) mg/dL POC Glucose 37 L 34 L 35 L (70-105) mg/dL Calcium (8.4-10.2) mg/dL 01/14/21 01/14/21 01/15/21 Range/Units 18:34 23:17 00:34 WBC (4.5-11.0) K/mm3 RBC (3.65-5.03) M/mm3 Hgb (11.8-15.2) gm/dl Hct (35.5-45.6) % RDW (13.2-15.2) % Sodium (137-145) mmol/L Chloride (98-107) mmol/L BUN (9-20) mg/dL Creatinine (0.8-1.3) mg/dL Glucose (75-100) mg/dL POC Glucose 143 H 53 L 181 H (70-105) mg/dL Calcium (8.4-10.2) mg/dL 01/15/21 01/15/21 01/15/21 Range/Units 04:00 04:00 05:29 WBC 15.9 H (4.5-11.0) K/mm3 RBC 3.02 L (3.65-5.03) M/mm3 Hgb 9.3 L (11.8-15.2) gm/dl Hct 27.3 L (35.5-45.6) % RDW 15.6 H (13.2-15.2) % Sodium 136 L (137-145) mmol/L Chloride 94.3 L (98-107) mmol/L BUN 117 H (9-20) mg/dL Creatinine 9.9 H (0.8-1.3) mg/dL Glucose 217 H (75-100) mg/dL POC Glucose 221 H (70-105) mg/dL Calcium 8.3 L (8.4-10.2) mg/dL 01/15/21 Range/Units 11:51 WBC (4.5-11.0) K/mm3 RBC (3.65-5.03) M/mm3 Hgb (11.8-15.2) gm/dl Hct (35.5-45.6) % RDW (13.2-15.2) % Sodium (137-145) mmol/L Chloride (98-107) mmol/L BUN (9-20) mg/dL Creatinine (0.8-1.3) mg/dL Glucose (75-100) mg/dL POC Glucose 62 L (70-105) mg/dL Calcium (8.4-10.2) mg/dL
--- NOTE | 2021-01-15 19:38 | Progress Note ---
Assessment and Plan - Patient Problems (1) Small intestinal gangrene Current Visit: Yes Status: Acute Plan to address problem: 1) Continue Octreotide, NG and TPN 2) Appears to be slowly improving. (2) Small intestinal gangrene Current Visit: Yes Status: Acute Subjective Date of service: 01/15/21 Patient Reports: Positive: no new complaints ([place] incoherently) Objective Vital Signs - 12hr 01/15/21 01/15/21 01/15/21 08:00 09:00 09:04 Temperature 98.1 F Pulse Rate 89 81 85 Respiratory 13 17 Rate Blood Pressure 134/60 138/58 138/58 O2 Sat by Pulse 98 97 Oximetry 01/15/21 01/15/21 01/15/21 09:05 10:00 11:00 Temperature Pulse Rate 85 71 85 Respiratory 15 23 Rate Blood Pressure 138/58 133/50 126/62 O2 Sat by Pulse 99 96 Oximetry 01/15/21 01/15/21 01/15/21 12:00 12:07 13:00 Temperature 98.0 F Pulse Rate 77 74 74 Respiratory 17 13 Rate Blood Pressure 123/62 123/62 153/70 O2 Sat by Pulse 96 92 Oximetry 01/15/21 01/15/21 01/15/21 13:39 14:00 15:00 Temperature Pulse Rate 75 82 78 Respiratory 21 15 Rate Blood Pressure 135/61 133/58 141/65 O2 Sat by Pulse 97 95 Oximetry 01/15/21 01/15/21 01/15/21 16:00 17:00 18:00 Temperature 98.6 F Pulse Rate 75 67 68 Respiratory 28 H 9 L 16 Rate Blood Pressure 141/62 133/65 151/67 O2 Sat by Pulse 97 97 96 Oximetry 01/15/21 18:15 Temperature Pulse Rate 68 Respiratory Rate Blood Pressure 151/67 O2 Sat by Pulse Oximetry - Abdomen soft, bowel sounds hypoactive, other (No appreciable tenderness. HARIS output 70 ml yesterday - appears bilious and slightly cloudy.) - Labs 01/15/21 04:00 01/15/21 04:00 Diabetes panel 01/15/21 Range/Units 04:00 Sodium 136 L (137-145) mmol/L Potassium 4.1 (3.6-5.0) mmol/L Chloride 94.3 L (98-107) mmol/L Carbon Dioxide 23 (22-30) mmol/L BUN 117 H (9-20) mg/dL Creatinine 9.9 H (0.8-1.3) mg/dL Glucose 217 H (75-100) mg/dL Calcium 8.3 L (8.4-10.2) mg/dL Calcium panel 01/15/21 Range/Units 04:00 Calcium 8.3 L (8.4-10.2) mg/dL Pituitary panel 01/15/21 Range/Units 04:00 Sodium 136 L (137-145) mmol/L Potassium 4.1 (3.6-5.0) mmol/L Chloride 94.3 L (98-107) mmol/L Carbon Dioxide 23 (22-30) mmol/L BUN 117 H (9-20) mg/dL Creatinine 9.9 H (0.8-1.3) mg/dL Glucose 217 H (75-100) mg/dL Calcium 8.3 L (8.4-10.2) mg/dL Adrenal panel 01/15/21 Range/Units 04:00 Sodium 136 L (137-145) mmol/L Potassium 4.1 (3.6-5.0) mmol/L Chloride 94.3 L (98-107) mmol/L Carbon Dioxide 23 (22-30) mmol/L BUN 117 H (9-20) mg/dL Creatinine 9.9 H (0.8-1.3) mg/dL Glucose 217 H (75-100) mg/dL Calcium 8.3 L (8.4-10.2) mg/dL
[2021-01-15] MEDS ORDERED: TOTAL PARENTERAL NUTRITION 2,016 ML IV SCH (20:00)
[2021-01-16] MEDS: HALOPERIDOL LACTATE 5 MG/1 ML INJ IV PRN (00:14)
[2021-01-16] MEDS: INSULIN LISPRO 100 UNIT/ML SUB-Q SCH ×5 (00:57→23:31)
[2021-01-16] MEDS: METOPROLOL TARTRATE 5 MG/5 ML INJ IV SCH ×6 (02:49→21:46)
[2021-01-16] MEDS: hydrALAZINE 20 MG/1 ML INJ IV SCH ×6 (02:50→21:49)
[2021-01-16] MEDS: HYDROmorphone 1 MG/1 ML INJ IV PRN ×2 (03:36→21:48)
[2021-01-16] MEDS: PIPERACIL-TAZO 2.25 GM/50 ML 2.25 GM/50 ML BAG IV SCH ×3 (03:37→20:27)
[2021-01-16] MEDS: GLYCOPYRROLATE 0.4 MG/2 ML INJ IV SCH ×2 (03:37→12:05)
[2021-01-16 07:35] LABS: Calcium 8.1 mg/dL (8.4-10.2)
[2021-01-16 07:42] LABS: Hematocrit 24.8 % (35.5-45.6); Hemoglobin 8.2 gm/dl (11.8-15.2); Mean Corpuscular HGB Conc 33 % (32-34); Mean Corpuscular Volume 90 fl (84-94); Platelet Count 331 K/mm3 (140-440); Red Blood Count 2.76 M/mm3 (3.65-5.03); Red Cell Distribution Width 15.6 % (13.2-15.2)
[2021-01-16] MEDS: FAMOTIDINE 20 MG/2 ML INJ IV SCH ×2 (09:34→21:45)
[2021-01-16] MEDS: HEPARIN 5,000 UNIT/1 ML VIAL SUB-Q SCH ×2 (09:34→21:43)
--- NOTE | 2021-01-16 10:10 | Progress Note ---
Assessment and Plan Assessment: * ESRD previouasly on peritoneal dialysis; now on back up HD (on peritoneal dialysis for 2 years) * Small bowel obstruction --s/p ex-lap with jejuno-ileal anastamosis --s/p ex lap with extensive lysis of adhesions and two small bowel resections with primary anastamosis for SBO with necrotic segment small bowel. --s/p ex lap, resection of perforated anastamosis, washout and abthera wound vac placement. --s/p ex lap with right hemicolectomy. * Acute respiratory failure * Septic shock - resolved * Bacteremia - resolved * Hyperkalemia * Anemia of ESRD * Atrial fibrilation, new onset * Post op ileus Plan: * Continue HD MWF via left IJ permcath (12/27) * 4K bath with dialysis * UF as tolerated * Epogen 10k units w/ dialysis * Rate control per cardiology * Abx per primary team/ID * Nutrition per primary team * Maintatin MAP >65 * Surgery notes appreciated Subjective Date of service: 01/16/21 Principal diagnosis: Ac hypoxemic resp failure; Severe Sepsis; Peritonitis; A cute SBO; ESRD; CHF Interval history: Patient is awake and alert. Remains in IMCU. NG tube in place. TPN infusing. Patient does complain of feeling somewhat thirsty. Objective - Vital Signs Vital signs: Vital Signs - 12hr 01/15/21 01/15/21 01/15/21 22:08 22:15 22:16 Temperature Pulse Rate 75 Pulse Rate [ From Monitor] Respiratory 17 13 Rate Respiratory 17 Rate [Anterior Abdomen] Blood Pressure 137/58 O2 Sat by Pulse 95 Oximetry 01/15/21 01/15/21 01/16/21 23:00 23:28 00:00 Temperature 97.4 F L Pulse Rate 74 68 Pulse Rate [ From Monitor] Respiratory 11 L 18 Rate Respiratory Rate [Anterior Abdomen] Blood Pressure 120/57 139/64 O2 Sat by Pulse 96 Oximetry 01/16/21 01/16/21 01/16/21 00:05 01:00 02:00 Temperature Pulse Rate 69 70 68 Pulse Rate [ From Monitor] Respiratory 15 11 L Rate Respiratory Rate [Anterior Abdomen] Blood Pressure 137/58 138/63 O2 Sat by Pulse 99 99 Oximetry 01/16/21 01/16/21 01/16/21 02:49 02:50 03:00 Temperature Pulse Rate 67 63 62 Pulse Rate [ From Monitor] Respiratory 14 Rate Respiratory Rate [Anterior Abdomen] Blood Pressure 155/67 155/67 151/67 O2 Sat by Pulse 99 Oximetry 01/16/21 01/16/21 01/16/21 03:36 03:39 03:55 Temperature 98.4 F Pulse Rate 78 Pulse Rate [ From Monitor] Respiratory 14 Rate Respiratory Rate [Anterior Abdomen] Blood Pressure O2 Sat by Pulse Oximetry 01/16/21 01/16/21 01/16/21 04:00 04:06 05:00 Temperature Pulse Rate 79 76 Pulse Rate [ 78 From Monitor] Respiratory 15 14 14 Rate Respiratory Rate [Anterior Abdomen] Blood Pressure 144/72 143/62 O2 Sat by Pulse 98 97 Oximetry 01/16/21 01/16/21 01/16/21 06:00 06:17 07:00 Temperature Pulse Rate 72 70 70 Pulse Rate [ From Monitor] Respiratory 24 13 Rate Respiratory Rate [Anterior Abdomen] Blood Pressure 146/60 151/60 137/61 O2 Sat by Pulse 98 98 Oximetry 01/16/21 01/16/21 01/16/21 08:00 09:19 09:48 Temperature 98.7 F Pulse Rate 69 71 64 Pulse Rate [ From Monitor] Respiratory 15 26 H Rate Respiratory Rate [Anterior Abdomen] Blood Pressure 137/56 149/65 O2 Sat by Pulse 98 Oximetry 01/16/21 10:00 Temperature Pulse Rate 72 Pulse Rate [ From Monitor] Respiratory Rate Respiratory Rate [Anterior Abdomen] Blood Pressure 138/52 O2 Sat by Pulse Oximetry - General Appearance General appearance: well-developed, well-nourished, appears stated age EENT: PERRL, mucous membranes moist Neck: no JVD, no thyromegaly, no carotid bruit, supple, other (Left IJ PermCath in place) Respiratory: Present: Clear to Ascultation Cardiology: regular, normal heart rate, S1S2, no murmurs Gastrointestinal: other (Abdomen slightly distended. Midline incision noted. Wound VAC in place. Drain in right flank area. Bowel sounds sluggish) Integumentary: other (No edema) - Lab 01/16/21 06:44 01/16/21 06:44 Most recent lab results ABG pH 7.345 pH Units (7.350-7.450) L 01/07/21 17:14 ABG pCO2 40.3 mm Hg 01/07/21 17:14 ABG pO2 67.4 mm Hg (80.0-90.0) L 01/07/21 17:14 ABG HCO3 21.5 mmol/L (20.0-26.0) 01/07/21 17:14 ABG O2 Saturation 94.3 % (95.0-99.0) L 01/07/21 17:14 Calcium 8.1 mg/dL (8.4-10.2) L 01/16/21 06:44 Phosphorus 5.50 mg/dL (2.5-4.5) H 01/16/21 06:44 Magnesium 2.50 mg/dL (1.7-2.3) H 01/16/21 06:44 Medications & Allergies - Medications Allergies/Adverse Reactions: Allergies No Known Allergies Allergy (Verified 06/09/20 15:27) Home Medications: Home Medications Medication Instructions Recorded Confirmed Last Taken Type Albuterol Mdi (or & Nicu Only) 2 puff IH QID PRN #1 inhalation 04/01/17 11/01/20 10/31/20 09:00 Rx [ProAir HFA Inhaler] Calcium Acetate 667 mg PO DAILY 04/20/20 11/01/20 10/31/20 09:00 History Centrum Men's Tablet 1 tab PO DAILY 04/20/20 11/01/20 10/31/20 09:00 History Cinacalcet 30 mg PO DAILY 04/20/20 11/01/20 10/31/20 09:00 History Dialyvite with Zinc Tablet 1 tab PO DAILY 04/20/20 11/01/20 10/31/20 09:00 History Magnesium 250 mg PO BID 04/20/20 11/01/20 10/31/20 17:00 History Triamcinolone 0.1% 1 1000units TRANSDERMA DAILY 04/20/20 11/01/20 10/31/20 09:00 History Vit B12/Folic Acid/B6/Aa No.15 1,000 mg PO DAILY 04/20/20 11/01/20 10/31/20 09:00 History amLODIPine 10 mg PO DAILY 06/09/20 11/01/20 10/31/20 09:00 History AtorvaSTATin 40 mg PO HS 11/01/20 11/01/2010/31/21 21:00 History Benadryl 25 mg PO HS 11/01/20 11/01/20 10/31/20 21:00 History Diclofenac 1 TRANSDERMA QID 11/01/20 10/31/20 19:00 History Fluticasone Propionate 1 spray INTRANASAL DAILY 11/01/20 11/01/20 10/31/20 09:00 History Vitamin D3 2,000 units 11/01/20 10/31/20 09:00 History carvediloL 12.5 mg PO DAILY 11/01/20 11/01/20 10/31/20 09:00 History hydrALAZINE 100 mg PO TID 11/01/20 11/01/20 10/31/20 19:00 History Active Medications: Generic Name Dose Route Start Last Admin Trade Name Freq PRN Reason Stop Dose Admin Acetaminophen 650 mg 12/31/20 15:30 12/31/20 15:13 Acetaminophen [address] 650 mg Q6H PRN Administration Non Cardiac Pain or Temp>100.5 Clonidine HCl 0.2 mg 01/11/21 10:00 01/11/21 09:24 Clonidine Tts 0.2 Mg/24 Hr Patch TD 0.2 mg We THOMAS Administration Dextrose 50 ml 01/14/21 17:59 01/15/21 12:08 Dextrose 50% In Water (25gm) 50 Ml Syringe IV 15 ml Q30MIN PRN Administration Hypoglycemia Protocol Digoxin 0.125 mg 01/09/21 12:00 01/15/21 12:07 Digoxin 0.5 Mg/2 Ml Inj IV 0.125 mg Q48H THOMAS Administration Famotidine 10 mg 12/24/20 13:00 01/16/21 09:34 Famotidine 20 Mg/2 Ml Inj IV 10 mg BID THOMAS Administration Glycopyrrolate 0.2 mg 01/13/21 15:00 01/16/21 03:37 Glycopyrrolate 0.4 Mg/2 Ml Inj IV 01/16/21 14:59 0.2 mg Q6H THOMAS Administration Haloperidol Lactate 5 mg 12/29/20 14:16 01/16/21 00:14 Haloperidol Lactate 5 Mg/1 Ml Inj IV 5 mg Q12H PRN Administration Agitation Heparin Sodium (Porcine) 5,000 unit 12/24/20 10:00 01/16/21 09:34 Heparin 5,000 Unit/1 Ml Vial SUB-Q 5,000 unit Q12HR THOMAS Administration Hydralazine HCl 10 mg 01/10/21 14:00 01/16/21 06:17 Hydralazine 20 Mg/1 Ml Inj IV 10 mg Q4HR THOMAS Administration Hydromorphone HCl 0.25 mg 01/09/21 10:53 01/16/21 03:36 Hydromorphone 1 Mg/1 Ml Inj IV 0.25 mg Q6H PRN Administration Pain , Severe (7-10) Hydrophilic Ointment 1 applic 12/31/20 06:39 01/11/21 21:28 Lip Therapy Vaseline TP 1 applic Q2HR PRN Administration Dry Lips Sodium Chloride 100 mls @ 999 mls/hr 01/12/21 09:20 Nacl 0.9% IV [place] PRN Hypotension Octreotide Acetate 500 mcg/ 101 mls @ 5.05 mls/hr 01/13/21 11:00 01/15/21 18:54 Sodium Chloride IV 25 mcg/hr TITR THOMAS 5.05 mls/hr Administration Protocol 25 MCG/HR Piperacillin Sod/Tazobactam Sod 2.25 gm in 50 mls @ 100 mls/hr 01/13/21 12:00 01/16/21 03:37 Zosyn/Ns 2.25 Gm/50ml IV 100 mls/hr Q8H [facility] Administration Protocol Amino Acids/Electrolytes/Dextrose 2,016 mls @ 0 mls/hr 01/15/21 20:00 01/15/21 20:50 Tpn Adult IV 108 mls/hr DAILY@1999 [facility] Administration Protocol As Directed Insulin Glargine 10 units 01/16/21 22:00 Insulin Glargine 100 Units/Ml SUB-Q QHS [facility] Insulin Human Lispro 0 unit 01/03/21 12:00 01/16/21 06:18 Insulin Lispro 100 Unit/Ml SUB-Q 3 unit Q6HR [facility] Administration Protocol Metoprolol Tartrate 5 mg 12/30/20 12:00 01/16/21 06:17 Metoprolol Tartrate 5 Mg/5 Ml Inj IV 5 mg Q4HR [facility] Administration Multi-Ingred Cream/Lotion/Oil/Oint 1 applic 12/31/20 06:39 Mineral Oil/Petrolatum, White Ophth Oint 3.5 Gm OU Q4HR PRN Dry Eye(s) Scopolamine 1 each 01/15/21 11:00 01/15/21 12:00 Scopolamine Transdermal Patch 72 Hr TD 1 each Q3D THOMAS Administration Sodium Chloride 10 ml 12/22/20 22:00 01/16/21 09:35 Sodium Chloride 0.9% 10 Ml Flush Syringe IV 10 ml BID THOMAS Administration Sodium Chloride 10 ml 12/22/20 19:42 01/09/21 17:27 Sodium Chloride 0.9% 10 Ml Flush Syringe IV 10 ml PRN PRN Administration LINE FLUSH
--- NOTE | 2021-01-16 10:47 | Progress Note ---
Assessment and Plan Assessment and plan: This is a 60 YO Male with ESRD on PD, GERD, Crohn's Disease, Nicotine Dependence, HTN, Systolic CHF(EF 35%) who presented to the emergency department on 12/22 with complaints of abdominal pain which began shortly after eating fast food rated 10/10 which is periumbilical, constant, associated with fever, nausea and multiple sites of vomiting and self-reported inability to undergo PD. In the emergency room patient underwent a CT scan of the abdomen/pelvis which revealed evidence of partial small bowel obstruction, symptoms were consistent with bacterial peritonitis. Patient was admitted to the hospital service with sepsis, peritonitis, and small bowel obstruction with consults to general surgery, nephrology, infectious disease and [facility]. 12/23. Patient had temperature 101.2 F, tachycardia and elevated lactic acid on admission. Meet sepsis criteria. Started on IV antibiotics. ID has been c onsulted. Surgery consulted this a.m.-advised laparoscopy. He remains on NG tube connected to suction. 12/24. Patient was noted to have peritonitis yesterday and patient undergoing exploratory laparotomy. Patient remained intubated after procedure and is in ICU. Now on broad-spectrum antibiotics. ID on board. 12/25. Remains mechanically ventilated and sedated. Temp 103 Fahrenheit. Antibiotics broadened-ID added fluconazole and Flagyl. Blood cultures ordered. Plan to repeat CT abdomen tomorrow if not better. Surgery following. 12/26: Patient remains on mechanical ventilation on CMV tidal line 550, rate of 14, PEEP of 8 and 30% FiO2 and sedated on fentanyl 4 micrograms. Today we will remove his Jeffery and CCM dropped his rate controlled him on CPAP. We will trend CBC given recent drop in H/H. 12/27: Patient remains intubated on CMV tidal volume 550, rate 12, PEEP 8 on 30% FiO2 at the time my examination. Patient's TPN will be changed to PPN. Patient's fentanyl drip will be changed to IV push fentanyl and have a permacath placed today and midline. Patient was placed on a spontaneous breathing trial was switched back to CMV prior to procedure. 12/28: Patient on fentanyl but awake and follows commands. At the time of my examination he was on a CPAP trial and is scheduled to receive HD today. s/o permacath and PICC placement with vascular yesterday. His blood culture grew Prevotella and addition to Streptococcus bovis. This evening Dr. Spicer attempted to extubate the patient and his heart rate went to the 180s. Stat EKG obtained and cardiology consulted. 12/29: Patient was started on amiodarone IV for A. fib RVR yesterday and today he is more rate controlled into the 70s and 80s. Patient was extubated yesterday and is currently on Ventimask. Patient will be transferred to [facility]. Patient continues to be n.p.o. with TPN and NG tube to LIS. He is hypokalemic today which was repleted. 12/30; patient was on IV amiodarone for treatment with RVR, rate is controlled. Patient was off oxygen. patient is n.p.o. and on TPN. Surgery is following the patient. 12/31: Patient was intubated overnight for respiratory distress and this morning on examination he was on assist control tidal volume 450, rate 20, PEEP 6, 100% FiO2 and RT was getting a ABG to adjust vent settings. Patient had a acute bump in WBC and per ID recommendations we will obtain a CT abdomen/pelvis if leukocytosis persist. Patient is on TPN and sedated with Levophed. Patient is also on vasopressor support with Levophed. Per surgery his ileus is resolving however will maintain OGT to LIWS. 01/01: Patient was started on a vasopressin yesterday late evening. This morning patient is on 20 mcg of Levophed and 0.03 vasopressin and sedated on 20 mcg of propofol. Patient WBC increased today and he is hypokalemic. We will treat hyperkalemia. Patient had a CT chest and abdomen/pelvis pending. The time examination total of 450, rate 20, PEEP of 6 and 35 percent FiO2. Per RN, Dr Pollock has stated that the patient will be returning to the OR today for likely anastomosis seen on CT abdomen/pelvis. 01/02: Patient noted, WBC improving, but noted to have anemia, will transfuse additional unit of Blood and repeat H/H. continue supportive care. 01/03: Continue to wean pressors, ABX PER ID, patient to return to OR today for washout and possible closure, CONTINUE TPN 01/04: Continues to show some improvement. Today is POD#12 s/p ex lap with extensive lysis of adhesions and two small bowel resections with primary anastamosis for SBO with necrotic segment small bowel. POD#3 s/p ex lap, resection of perforated anastamosis, washout and abthera wound vac placement. POD#1 s/p ex lap with right hemicolectomy. Surgery planning to take back to the OR on Saturday with the hope to anastamos ileum to transverse colon and close abdomen. keep NGT to suction. Pt in deep sedation due to open abdomen. Per ID - Continue IV Zosyn, renally dosed for Strep bacteremia treatment till 01/06/2021 -On TPN 01/05: Patient continues on HD, anticipate return to OR tomorrow for closure and anastemosis. Continues with deep sedation due to open abdomen 01/06: Continue supportive care, monitor pressures and electrolytes. He is post op Exploratory laparotomy, 2. Jejunal colonic anastomosis,3. Segmental small bowel resection and anastemosis closure today. Continue wound vac 01/07: Continue supportive care, Today is POD#15 s/p ex lap with extensive lysis of adhesions and two small bowel resections with primary anastamosis for SBO with necrotic segment small bowel. POD#6 s/p ex lap, resection of perforated anastamosis, washout and abthera wound vac placement. POD#4 s/p ex lap with right hemicolectomy. POD #1 exploratory laparotomy, 2. Jejunal colonic anastomosis,3. Segmental small bowel resection. Continue to monitor and correct electrolytes. Patient remains on fentanyl and TPN with lipids. Still hypoactive bowel sounds. 16: Patient now extubated, asked when he can go home, Still lethargic. Continue wound management, wound vac, Will need Rehab eval prior to discharge. 01/09: Patient remains on TPN, was started on labetalol drip per cardiology, af[place] dueñas had uncontrolled hypertension today however he cannot be given p.o. medications ileus resolves per surgery. Patient received hemodialysis today. NG tube remains to low intermittent suction. 01/10: Patient has some leukocytosis, slight hypokalemia and hyponatremia, metabolic acidosis. NG tube to LIWS, continue TPN. Patient will be downgraded to IMCU today. [facility] is working on placement. Will change frequency of hydralazine and discontinue labetalol drip. We will obtain a.m. BMP/mag/Phos and CBC. Infectious disease will like to start Zosyn if leukocytosis continues to worsen. 01/11: Patient leukocytosis has slightly improved potassium with in normal limits and other electrolytes are elevated but patient is scheduled for HD today. Remains on RA and A,A,Ox4. BP better controlled but remains elevated and we will increase clonidine dose. 01/12/2021; patient's blood pressure is better after dialysis and as needed IV medications and clonidine patch. Patient is followed by general surgery. Patient was alert and oriented and asked when he is going home. 01/13: Surgery is concerned about a leak at his anastamosis given increased output and will treat as controlled fistula and start an octreotide drip. And per surgery if he requires operative intervention will likely need to be left in discontinuity and eventual ileostomy as he has already failed two anastamoses. Patient still has tongue swelling and slurred speech. He is on Benadryl. 01/14: Patient's tongue swelling is improved, patient is alert and oriented, CAM ICU negative. Continue NG tube to low wall intermittent suction. Leukocytosis is improving. Hypomagnesemia resolved. Epogen with HD 01/15: Patient tongue swelling is much improved, bladder scan completed by bedside RN and he needed to be straight cathed. NGT output decreased. Leukocytosis improving. Patient has been having episodes of hypoglycemia during the day and he is on cyclic TPN, Lantus rescheduled to nightly and dosage decreased. 01/16: Continue management per ID and surgery. Will defer repeat CT of the abdomen to the team surgery has been approved by nephrology. Continue current diet and advance all to ice if okay with surgery discussed with nursing staff. Severe Sepsis with shock Streptococcus bovis bacteremia/Prevotella bacteremia Gwendolyn albicans tracheal aspirate Small bowel obstruction/necrotic bowel s/p ex lap with extensive lysis of adhesions, 2 small bowel resections with primary anastomosis, right hemicolectomy, jejunal colonic anastomosis, segmental small bowel resection Postoperative ileus Atrial fibrillation with RVR Leukocytosis Hypochloremia Gwendolyn albicans in tracheal aspirate from 12/24 ESRD on PD, PermCath to be placed Transaminitis Systolic CHF(EF 35%) Crohn's disease Hypertension -CCM, surgery, infectious disease, nephrology, vascular surgery, cardiology consulted, appreciate recommendations -12/24 S/p ex lap with extensive expectations, 2 small bowel resections with primary anastomosis with surgery on 12/23 -s/p PICC and Permacath placement with vascular surgery on 12/27 -Extubated on 12/28, reintubated 12/31 for respiratory distress and extubated 01/08 -12/29 echocardiogram shows moderate concentric LVH, small pericardial effusion, transmitral Doppler flow pattern is grade 1 abnormal relaxation pattern, left- ventricular systolic function normal, LVEF 50 to 55%, no wall motion abnormalities. -01/01 CT abdomen/pelvis shows small pericardial effusion, mild coronary artery atherosclerotic calcification, small bilateral pleural effusions with associated volume loss, no convincing evidence of bowel obstruction or inflammation, postoperative changes from interval/recent midline laparotomy with a moderate amount of free fluid throughout the abdomen, small amount of dependent free air presumably postoperative -01/02 s/p ex lap, resection of perforated anastamosis, washout and abthera wound vac placement. -01/04 s/p ex lap with right hemicolectomy. -01/06 s/p exploratory laparotomy, Jejunal colonic anastomosis, Segmental small bowel resection. -s/p Vasopressor support with Levophed and vasopressin -Transitioned to HD from PD -HD per nephro, Epogen with HD -Strict NPO -TPN -Octreotide drip -NGT to LIWS -s/p IV antibiotics -Tobacco abuse cessation counseling -Trend CBC, BMP DVT/GI prophylaxis: PPI, heparin subcu, SCDs to bilateral lower extremities while in bed Disposition: IMCU History Interval history: This is a 60-year-old male with ESRD on peritoneal dialysis, Crohn's, hypertension, systolic CHF (EF 35%) who was admitted with sepsis, peritonitis, small bowel obstruction and now has gram-positive cocci bacteremia. Patient seen and examined, this morning undergoing dialysis. Asking for ice. Hospitalist Physical - Physical exam Narrative exam: General appearance: Present: no acute distress, wants some ice. Dry oropharyngeal area. - EENT Eyes: Present: PERRL ENT: poor dentition - Neck Neck: Absent: masses or JVD, cervical LAD - Respiratory Respiratory effort: normal Respiratory: bilateral: diminished - Cardiovascular Rhythm: irregularly irregular Heart Sounds: Present: S1 & S2. Absent: systolic murmur, diastolic murmur - Extremities Extremities: no ischemia, pulses intact, pulses symmetrical, No edema, normal temperature, normal color Peripheral Pulses: within normal limits - Abdominal General gastrointestinal: distended, abdomen dressing, rigid, w HARIS drain in place. Hypoactive bowel sounds. - Integumentary Integumentary: Present: Left chest permacath - Neurologic Neurologic: Awake alert oriented moves extremities - Allied Health Allied health notes reviewed: nursing - Constitutional Vitals: Temp Pulse Resp BP Pulse Ox 98.6 F 70 25 H 121/39 98 01/16/21 09:44 01/16/21 10:30 01/16/21 10:01 01/16/21 10:30 01/16/21 10:01 General appearance: Present: no acute distress HEART Score - HEART Score Troponin: Troponin T 0.021 ng/mL (0.00-0.029) 12/22/20 14:38 Results - Labs CBC & Chem 7: 01/17/21 05:14 01/17/21 05:14 Labs: Laboratory Last Values WBC 14.8 K/mm3 (4.5-11.0) H 01/16/21 06:44 RBC 2.76 M/mm3 (3.65-5.03) L 01/16/21 06:44 Hgb 8.2 gm/dl (11.8-15.2) L 01/16/21 06:44 Hct 24.8 % (35.5-45.6) L 01/16/21 06:44 MCV 90 fl (84-94) 01/16/21 06:44 MCH 30 pg (28-32) 01/16/21 06:44 MCHC 33 % (32-34) 01/16/21 06:44 RDW 15.6 % (13.2-15.2) H 01/16/21 06:44 Plt Count 331 K/mm3 (140-440) 01/16/21 06:44 Lymph % (Auto) 4.4 % (13.4-35.0) L 01/13/21 03:45 Cottle % (Auto) 10.3 % (0.0-7.3) H 01/13/21 03:45 Eos % (Auto) 0.9 % (0.0-4.3) 01/13/21 03:45 Baso % (Auto) 0.2 % (0.0-1.8) 01/13/21 03:45 Lymph # (Auto) 0.8 K/mm3 (1.2-5.4) L 01/13/21 03:45 Cottle # (Auto) 1.8 K/mm3 (0.0-0.8) H 01/13/21 03:45 Eos # (Auto) 0.2 K/mm3 (0.0-0.4) 01/13/21 03:45 Baso # (Auto) 0.0 K/mm3 (0.0-0.1) 01/13/21 03:45 Add Manual Diff Complete 01/10/21 09:26 Total Counted 100 01/10/21 09:26 Seg Neutrophils % 84.2 % (40.0-70.0) H 01/13/21 03:45 Seg Neuts % (Manual) 95.0 % (40.0-70.0) H 01/10/21 09:26 Band Neutrophils % 1.0 % 01/10/21 09:26 Lymphocytes % (Manual) 3.0 % (13.4-35.0) L 01/10/21 09:26 Reactive Lymphs % (Man) 1.0 % 12/29/20 05:16 Monocytes % (Manual) 1.0 % (0.0-7.3) 01/10/21 09:26 Eosinophils % (Manual) 2.0 % (0.0-4.3) 12/29/20 05:16 Metamyelocytes % 2.0 % 12/29/20 05:16 Nucleated RBC % Not Reportable 01/10/21 09:26 Seg Neutrophils # 14.8 K/mm3 (1.8-7.7) H 01/13/21 03:45 Seg Neutrophils # Man 17.3 K/mm3 (1.8-7.7) H 01/10/21 09:26 Band Neutrophils # 0.2 K/mm3 01/10/21 09:26 Lymphocytes # (Manual) 0.5 K/mm3 (1.2-5.4) L 01/10/21 09:26 Abs React Lymphs (Man) 0.0 K/mm3 01/10/21 09:26 Monocytes # (Manual) 0.2 K/mm3 (0.0-0.8) 01/10/21 09:26 Eosinophils # (Manual) 0.0 K/mm3 (0.0-0.4) 01/10/21 09:26 Basophils # (Manual) 0.0 K/mm3 (0.0-0.1) 01/10/21 09:26 Metamyelocytes # 0.0 K/mm3 01/10/21 09:26 Myelocytes # 0.0 K/mm3 01/10/21 09:26 Promyelocytes # 0.0 K/mm3 01/10/21 09:26 Blast Cells # 0.0 K/mm3 01/10/21 09:26 WBC Morphology Not Reportable 01/10/21 09:26 Hypersegmented Neuts Not Reportable 01/10/21 09:26 Hyposegmented Neuts Not Reportable 01/10/21 09:26 Hypogranular Neuts Not Reportable 01/10/21 09:26 Smudge Cells Not Reportable 01/10/21 09:26 Toxic Granulation 1+ 01/10/21 09:26 Toxic Vacuolation Not Reportable 01/10/21 09:26 Dohle Bodies Not Reportable 01/10/21 09:26 Pelger-Huet Anomaly Not Reportable 01/10/21 09:26 Lamar Rods Not Reportable 01/10/21 09:26 Platelet Estimate Consistent w auto 01/10/21 09:26 Clumped Platelets Not Reportable 01/10/21 09:26 Plt Clumps, EDTA Not Reportable 01/10/21 09:26 Large Platelets Not Reportable 01/10/21 09:26 Giant Platelets Not Reportable 01/10/21 09:26 Platelet Satelliting Not Reportable 01/10/21 09:26 Plt Morphology Comment Not Reportable 01/10/21 09:26 RBC Morphology Not Reportable 01/10/21 09:26 Dimorphic RBCs Not Reportable 01/10/21 09:26 Polychromasia Not Reportable 01/10/21 09:26 Hypochromasia Not Reportable 01/10/21 09:26 Poikilocytosis Not Reportable 01/10/21 09:26 Anisocytosis 1+ 01/10/21 09:26 Microcytosis Not Reportable 01/10/21 09:26 Macrocytosis Not Reportable 01/10/21 09:26 Spherocytes Not Reportable 01/10/21 09:26 Pappenheimer Bodies Not Reportable 01/10/21 09:26 Sickle Cells Not Reportable 01/10/21 09:26 Target Cells Not Reportable 01/10/21 09:26 Tear Drop Cells Not Reportable 01/10/21 09:26 Ovalocytes Not Reportable 01/10/21 09:26 Helmet Cells Not Reportable 01/10/21 09:26 [place] Bodies Not Reportable 01/10/21 09:26 Emmet Rings Not Reportable 01/10/21 09:26 Jenny Cells Not Reportable 01/10/21 09:26 Bite Cells Not Reportable 01/10/21 09:26 Crenated Cell Not Reportable 01/10/21 09:26 Elliptocytes Not Reportable 01/10/21 09:26 Acanthocytes (Spur) Not Reportable 01/10/21 09:26 Rouleaux Not Reportable 01/10/21 09:26 Hemoglobin C Crystals Not Reportable 01/10/21 09:26 Schistocytes Not Reportable 01/10/21 09:26 Malaria parasites Not Reportable 01/10/21 09:26 Lucas Bodies Not Reportable 01/10/21 09:26 Hem Pathologist Commnt No 01/10/21 09:26 PT 16.9 Sec. (12.2-14.9) H 01/01/21 12:45 INR 1.39 (0.87-1.13) H 01/01/21 12:45 APTT 25.1 Sec. (24.2-36.6) 12/22/20 14:38 ABG pH 7.345 pH Units (7.350-7.450) L 01/07/21 17:14 POC ABG pCO2 41.4 mmHg (32.0-48.0) 01/07/21 03:07 ABG pCO2 40.3 mm Hg 01/07/21 17:14 POC ABG pO2 94.5 mmHg (83-108) 01/07/21 03:07 ABG pO2 67.4 mm Hg (80.0-90.0) L 01/07/21 17:14 POC ABG HCO3 22.7 01/07/21 03:07 ABG HCO3 21.5 mmol/L (20.0-26.0) 01/07/21 17:14 ABG O2 Saturation 94.3 % (95.0-99.0) L 01/07/21 17:14 ABG O2 Content 11.6 (0.0-44) 01/07/21 17:14 POC ABG Base Excess -2.7 01/07/21 03:07 ABG Base Excess -3.9 mmol/L (-2.0-3.0) L 01/07/21 17:14 ABG Hemoglobin 8.9 gm/dl (14.0-18.0) L 01/07/21 17:14 ABG Oxyhemoglobin 96.6 (94-98) 01/07/21 03:07 ABG Carboxyhemoglobin 1.5 % (0.0-5.0) 01/07/21 17:14 ABG Methemoglobin 0.6 % (0.0-1.5) 01/07/21 17:14 ABG Sodium 135.6 mmol/L (136.0-145.0) L 01/07/21 03:07 ABG Potassium 4.0 mmol/L (3.40-4.50) 01/07/21 03:07 ABG Chloride 102.0 mmol/L (98-107) 01/07/21 03:07 ABG Glucose 181 mg/dL (65-95) H 01/07/21 03:07 Oxyhemoglobin 92.3 % (95.0-99.0) L 01/07/21 17:14 Carboxyhemoglobin 0.7 (0.5-1.5) 01/07/21 03:07 FiO2 21 % 01/07/21 17:14 FiO2 % 45.0 01/07/21 03:07 Sodium 133 mmol/L (137-145) L 01/16/21 06:44 Potassium 4.2 mmol/L (3.6-5.0) 01/16/21 06:44 Chloride 92.3 mmol/L (98-107) L 01/16/21 06:44 Carbon Dioxide 20 mmol/L (22-30) L 01/16/21 06:44 Anion Gap 25 mmol/L 01/16/21 06:44 BUN 160 mg/dL (9-20) H 01/16/21 06:44 Creatinine 12.1 mg/dL (0.8-1.3) H 01/16/21 06:44 Estimated GFR 5 ml/min 01/16/21 06:44 BUN/Creatinine Ratio 13 % 01/16/21 06:44 Glucose 177 mg/dL (75-100) H 01/16/21 06:44 POC Glucose 168 mg/dL (70-105) H 01/16/21 05:04 Lactic Acid 1.10 mmol/L (0.7-2.0) 01/14/21 05:39 Calcium 8.1 mg/dL (8.4-10.2) L 01/16/21 06:44 Phosphorus 5.50 mg/dL (2.5-4.5) H 01/16/21 06:44 Magnesium 2.50 mg/dL (1.7-2.3) H 01/16/21 06:44 Total Bilirubin 0.90 mg/dL (0.1-1.2) 01/08/21 04:34 AST 30 units/L (5-40) 01/08/21 04:34 ALT 29 units/L (7-56) 01/08/21 04:34 Alkaline Phosphatase 133 units/L (35-129) H 01/08/21 04:34 Ammonia 30.0 umol/L (25-60) 12/22/20 14:38 Troponin T 0.021 ng/mL (0.00-0.029) 12/22/20 14:38 Total Protein 5.4 g/dL (6.3-8.2) L 01/08/21 04:34 Albumin 1.9 g/dL (3.9-5) L 01/08/21 04:34 Albumin/Globulin Ratio 0.5 % 01/08/21 04:34 Triglycerides 77 mg/dL (2-149) 01/11/21 05:18 Lipase 41 units/L (13-60) 12/22/20 14:38 Procalcitonin > 200.00 ng/mL (<0.15) 12/24/20 15:06 TSH 1.470 mlU/mL (0.270-4.200) 12/28/20 19:44 Arterial Blood Glucose 181 mg/dL (65-95) H 01/07/21 03:07 Arterial Blood Ionized Calcium 4.3 mg/dL (4.6-5.3) L 01/07/21 03:07 Urine Color Yellow (Yellow) 12/22/20 18:53 Urine Turbidity Clear (Clear) 12/22/20 18:53 Urine pH 7.0 (5.0-7.0) 12/22/20 18:53 Ur Specific [place] 1.012 (1.003-1.030) 12/22/20 18:53 Urine Protein >500 mg/dL (Negative) 12/22/20 18:53 Urine Glucose (UA) Neg mg/dL (Negative) 12/22/20 18:53 Urine Ketones Neg mg/dL (Negative) 12/22/20 18:53 Urine Blood Neg (Negative) 12/22/20 18:53 Urine Nitrite Neg (Negative) 12/22/20 18:53 Urine Bilirubin Neg (Negative) 12/22/20 18:53 Urine Urobilinogen < 2.0 mg/dL (<2.0) 12/22/20 18:53 Ur Leukocyte Esterase Neg (Negative) 12/22/20 18:53 Urine WBC (Auto) < 1.0 /HPF (0.0-6.0) 12/22/20 18:53 Urine RBC (Auto) 1.0 /HPF (0.0-6.0) 12/22/20 18:53 Fluid Type Dialysate 12/22/20 Unknown Fluid Color Colorless 12/22/20 Unknown Fluid Appearance Cloudy 12/22/20 Unknown Fluid WBC 208 /mm3 12/22/20 Unknown Fluid RBC 45 /mm3 12/22/20 Unknown Fluid Seg Neutrophils 82.0 % 12/22/20 Unknown Fluid Lymphocytes 11.0 % 12/22/20 Unknown Fluid Reactive Lymphs 0 % 12/22/20 Unknown Fluid Monocytes 7.0 % 12/22/20 Unknown Fluid Eosinophils 0 % 12/22/20 Unknown Fluid Basophils 0 % 12/22/20 Unknown Random Vancomycin 13.7 ug/mL (0-40.0) 12/26/20 Unknown Digoxin 0.8 ng/mL (0.9-2.0) L 01/11/21 05:18 Hepatitis A IgM Ab Non-reactive (NonReactive) 12/23/20 11:38 Hep Bs Antigen Non-reactive (Negative) 12/23/20 11:38 Hep B Core IgM Ab Non-reactive (NonReactive) 12/23/20 11:38 Hepatitis C Antibody Non-reactive (NonReactive) 12/23/20 11:38 Blood Type A POSITIVE 01/06/21 07:10 Antibody Screen Negative 01/06/21 07:10 Crossmatch See Detail 01/06/21 07:10 Jeffery/IV: Voiding Method Urinal Active Medications - Current Medications Current Medications: Generic Name Dose Route Start Last Admin Trade Name Freq PRN Reason Stop Dose Admin Acetaminophen 650 mg 12/31/20 15:30 12/31/20 15:13 Acetaminophen [address] 650 mg Q6H PRN Administration Non Cardiac Pain or Temp>100.5 Clonidine HCl 0.2 mg 01/11/21 10:00 01/11/21 09:24 Clonidine Tts 0.2 Mg/24 Hr Patch TD 0.2 mg We THOMAS Administration Dextrose 50 ml 01/14/21 17:59 01/15/21 12:08 Dextrose 50% In Water (25gm) 50 Ml Syringe IV 15 ml Q30MIN PRN Administration Hypoglycemia Protocol Digoxin 0.125 mg 01/09/21 12:00 01/15/21 12:07 Digoxin 0.5 Mg/2 Ml Inj IV 0.125 mg Q48H THOMAS Administration Famotidine 10 mg 12/24/20 13:00 01/16/21 09:34 Famotidine 20 Mg/2 Ml Inj IV 10 mg BID THOMAS Administration Glycopyrrolate 0.2 mg 01/13/21 15:00 01/16/21 03:37 Glycopyrrolate 0.4 Mg/2 Ml Inj IV 01/16/21 14:59 0.2 mg Q6H THOMAS Administration Haloperidol Lactate 5 mg 12/29/20 14:16 01/16/21 00:14 Haloperidol Lactate 5 Mg/1 Ml Inj IV 5 mg Q12H PRN Administration Agitation Heparin Sodium (Porcine) 5,000 unit 12/24/20 10:00 01/16/21 09:34 Heparin 5,000 Unit/1 Ml Vial SUB-Q 5,000 unit Q12HR THOMAS Administration Hydralazine HCl 10 mg 01/10/21 14:00 01/16/21 06:17 Hydralazine 20 Mg/1 Ml Inj IV 10 mg Q4HR THOMAS Administration Hydromorphone HCl 0.25 mg 01/09/21 10:53 01/16/21 03:36 Hydromorphone 1 Mg/1 Ml Inj IV 0.25 mg Q6H PRN Administration Pain , Severe (7-10) Hydrophilic Ointment 1 applic 12/31/20 06:39 01/11/21 21:28 Lip Therapy Vaseline TP 1 applic Q2HR PRN Administration Dry Lips Sodium Chloride 100 mls @ 999 mls/hr 01/12/21 09:20 Nacl 0.9% IV [place] PRN Hypotension Octreotide Acetate 500 mcg/ 101 mls @ 5.05 mls/hr 01/13/21 11:00 01/15/21 18:54 Sodium Chloride IV 25 mcg/hr TITR THOMAS 5.05 mls/hr Administration Protocol 25 MCG/HR Piperacillin Sod/Tazobactam Sod 2.25 gm in 50 mls @ 100 mls/hr 01/13/21 12:00 01/16/21 03:37 Zosyn/Ns 2.25 Gm/50ml IV 100 mls/hr Q8H [facility] Administration Protocol Amino Acids/Electrolytes/Dextrose 2,016 mls @ 0 mls/hr 01/15/21 20:00 01/15/21 20:50 Tpn Adult IV 108 mls/hr DAILY@[email or web address] [facility] Administration Protocol As Directed Fat Emulsion Intravenous 250 mls @ 21 mls/hr 01/16/21 20:00 Intralipid 20% IV 01/17/21 08:00 DAILY@[email or web address] [facility] Amino Acids/Electrolytes/Dextrose 2,016 mls @ 0 mls/hr 01/16/21 20:00 Tpn Adult IV 01/17/21 19:59 DAILY@1999 [facility] Protocol As Directed Insulin Glargine 10 units 01/16/21 22:00 Insulin Glargine 100 Units/Ml SUB-Q QHS [facility] Insulin Human Lispro 0 unit 01/03/21 12:00 01/16/21 06:18 Insulin Lispro 100 Unit/Ml SUB-Q 3 unit Q6HR [facility] Administration Protocol Metoprolol Tartrate 5 mg 12/30/20 12:00 01/16/21 06:17 Metoprolol Tartrate 5 Mg/5 Ml Inj IV 5 mg Q4HR [facility] Administration Multi-Ingred Cream/Lotion/Oil/Oint 1 applic 12/31/20 06:39 Mineral Oil/Petrolatum, White Ophth Oint 3.5 Gm OU Q4HR PRN Dry Eye(s) Scopolamine 1 each 01/15/21 11:00 01/15/21 12:00 Scopolamine Transdermal Patch 72 Hr TD 1 each Q3D [facility] Administration Sodium Chloride 10 ml 12/22/20 22:00 01/16/21 09:35 Sodium Chloride 0.9% 10 Ml Flush Syringe IV 10 ml BID THOMAS Administration Sodium Chloride 10 ml 12/22/20 19:42 01/09/21 17:27 Sodium Chloride 0.9% 10 Ml Flush Syringe IV 10 ml PRN PRN Administration LINE FLUSH Nutrition/Malnutrition Assess - Dietary Evaluation Nutrition/Malnutrition Findings: Nutrition Notes Start: 12/24/20 12:36 Freq: Status: Active Protocol: Document 01/15/21 10:31 LP (Rec: 01/15/21 10:34 LP [email or web address]) Nutrition Notes Initial or Follow up Reassessment Current Diagnosis CKD (stage V CKD),Sepsis, Hypertension,Heart Failure, Small Bowel Obstruction Other Pertinent Diagnosis Peritonitis, SBO s/p resection Current Diet 12 h Cyclic CPN 108/180/108 Labs/Tests Reviewed Pertinent Medications Reviewed Height 5 ft 7 in Weight 87 kg [employer] Body Weight (kg) 67.27 BMI 30.0 Weight Status Overweight Subjective/Other Information TPN day 20. NGT to LIS continues. Percent of energy/protein needs met: 100%/100% Burn Absent Trauma Absent Current % PO Negligible Minimum of two criteria No #1 Nutrition Diagnosis Inadequate oral intake Diagnosis Progress(for reassessment Continues documentation) Is patient on ventilator? No Is Patient Ambulatory and/or Out of Bed No REE-([facility]-confined to bed) 195.264 Kcal/Kg value to use for calculation 19 Approximate Energy Requirements Using 1653 kcal/Kg Calculation Used for Recommendations Kcal/kg Additional Notes Pro needs: 101-121 g/day (1.25 -1.5 g/kg AdjBW, 81kg) Fluid needs per MD. Nutrition Intervention Change Diet Order: Continue CPN Nutrition Support: 12 h Cyclic CPN at 108/180/108 ml/hr 10mEq K, MVI Kcal 1,674 Protein (gm) 121 Carbohydrates (gm) 350 Fat (gm) 0 Fluid (mL) 2,016 Fiber (gm) 0 Goal #1 Meet at least 75% of estimated energy and protein needs via CPN Anticipated Discharge Needs: 12 hour cyclic TPN Follow-Up By: 01/16/21 Additional Comments Labs in AM: BMP, Mg, Phos
--- NOTE | 2021-01-16 10:52 | Progress Note ---
Assessment and Plan Cultures: 12/22/2020 blood culture: Streptococcus bovis, Prevotella 12/22/2020 PD fluid culture: No growth 12/24/2020 tracheal aspirate culture: No growth 12/24/2020 blood culture: No growth 12/31/2020 sputum culture: No growth A/P: 60-year-old male with ESRD on PD, Crohn's disease, CHF, gastroesophageal reflux disease was admitted to the hospital with complaints of abdominal pain and fever: #Severe sepsis with shock: improved. Secondary to small bowel obstruction/necrotic bowel with associated peritonitis. Status post exploratory laparotomy on 12/23/2020 with extensive lysis, primary anastomosis, found to have necrotic segment of small bowel. #Small bowel obstruction/necrotic bowel: with concern for PD associated peritonitis: Nephrology and general surgery following. Status post exploratory laparotomy on 12/23/2020 with extensive lysis, primary anastomosis, found to have necrotic segment of small bowel. PD catheter remains in place. S/p ex lap, resection of perforated anastamosis, washout and abthera wound vac placement on 01/01. Repeat CT abdomen showed no new abscesses, noted small free fluid. S/p Exploratory laparotomy, Right hemicolectomy, Peritoneal lavage, Partial omentectomy, ABThera wound VAC placement on 01/03/2021. #Streptococcus bovis bacteremia and Prevotella bacteremia: secondary to above. TTE without obvious vegetations. Repeat blood cultures negative. #ESRD: Renally dose antibiotics. Used to be on PD. On HD. #Acute respiratory failure: off the vent. #Anemia: Severe. Recs: -continue supportive care, IV Zosyn -monitor for any worsening fever/leucocytosis d/w Dr. Laura Denny MD, FACP [facility] ([facility] O: [phone] F: [phone] Subjective Date of service: 01/16/21 Principal diagnosis: Ac hypoxemic resp failure; Severe Sepsis; Peritonitis; Acute SBO; ESRD; CHF Interval history: Afebrile. Getting HD at bedside. Denies any complaints. Has NG tube in place. Objective - Exam Narrative Exam: Physical Exam: Constitutional: awake alert, NG tube + Head, Ears, Nose: Normocephalic, atraumatic. External ears, nose normal Eyes: Conjunctivae/corneas clear. No icterus. No ptosis. Neck: supple Cardiovascular: S1, S2 + Respiratory: AE fair bilaterally GI: distended, VAC +, bowel sounds hypo Musculoskeletal: No pedal edema, no cyanosis. Skin: No rash or abscess Hem/Lymphatic: No palpable cervical or supraclavicular nodes. No lymphangitis Psych: calm, no agitation Neurological: awake, alert, oriented, answering questions. - Constitutional Vitals: Vital Signs Temp Pulse Resp BP Pulse Ox 98.6 F 71 25 H 123/51 98 01/16/21 09:44 01/16/21 10:45 01/16/21 10:01 01/16/21 10:45 01/16/21 10:01 Temperature -Last 24 Hours Temperature 98.6 F Temperature 98.7 F Temperature 98.4 F Temperature 97.4 F Temperature 97.9 F Temperature 98.6 F Temperature 98.0 F - Labs CBC & Chem 7: 01/16/21 06:44 01/16/21 06:44 Labs: Abnormal lab results 01/15/21 01/15/21 01/16/21 Range/Units 11:51 23:13 05:04 WBC (4.5-11.0) K/mm3 RBC (3.65-5.03) M/mm3 Hgb (11.8-15.2) gm/dl Hct (35.5-45.6) % RDW (13.2-15.2) % Sodium (137-145) mmol/L Chloride (98-107) mmol/L Carbon Dioxide (22-30) mmol/L BUN (9-20) mg/dL Creatinine (0.8-1.3) mg/dL Glucose (75-100) mg/dL POC Glucose 62 L 154 H 168 H (70-105) mg/dL Calcium (8.4-10.2) mg/dL Phosphorus (2.5-4.5) mg/dL Magnesium (1.7-2.3) mg/dL 01/16/21 01/16/21 Range/Units 06:44 06:44 WBC 14.8 H (4.5-11.0) K/mm3 RBC 2.76 L (3.65-5.03) M/mm3 Hgb 8.2 L (11.8-15.2) gm/dl Hct 24.8 L (35.5-45.6) % RDW 15.6 H (13.2-15.2) % Sodium 133 L (137-145) mmol/L Chloride 92.3 L (98-107) mmol/L Carbon Dioxide 20 L (22-30) mmol/L BUN 160 H (9-20) mg/dL Creatinine 12.1 H (0.8-1.3) mg/dL Glucose 177 H (75-100) mg/dL POC Glucose (70-105) mg/dL Calcium 8.1 L (8.4-10.2) mg/dL Phosphorus 5.50 H (2.5-4.5) mg/dL Magnesium 2.50 H (1.7-2.3) mg/dL
--- NOTE | 2021-01-16 12:43 | Progress Note ---
Assessment and Plan - Patient Problems (1) Atrial fibrillation Current Visit: Yes Status: Acute Plan to address problem: Continue medical therapy as previously outlined for paroxysmal atrial fibrillation. Subjective Date of service: 01/16/21 Principal diagnosis: Ac hypoxemic resp failure; Severe Sepsis; Peritonitis; Acute SBO; ESRD; CHF Interval history: Patient is comfortable, undergoing hemodialysis at bedside. On gambling monitor he has a sinus rhythm with frequent PACs. Objective Vital Signs Temp Pulse Pulse Resp Resp BP Pulse Ox 01/16/21 12:30 86 119/56 01/16/21 12:15 91 H 134/50 01/16/21 12:00 99.2 F 71 128/51 01/16/21 11:45 73 122/51 01/16/21 11:30 73 121/49 01/16/21 11:15 69 109/42 01/16/21 11:00 65 123/45 01/16/21 10:45 71 123/51 01/16/21 10:30 70 121/39 01/16/21 10:15 68 132/53 01/16/21 10:01 76 25 H 138/52 98 01/16/21 10:00 72 138/52 01/16/21 09:48 64 149/65 01/16/21 09:44 98.6 F 67 19 138/61 01/16/21 09:21 100 01/16/21 09:19 71 26 H 01/16/21 08:00 98.7 F 69 15 137/56 98 01/16/21 07:00 70 13 137/61 98 01/16/21 06:17 70 151/60 01/16/21 06:00 72 24 146/60 98 01/16/21 05:00 76 14 143/62 97 01/16/21 04:06 14 01/16/21 04:00 79 78 15 144/72 98 01/16/21 03:55 78 01/16/21 03:39 98.4 F 01/16/21 03:36 14 01/16/21 03:00 62 14 151/67 99 01/16/21 02:50 63 155/67 01/16/21 02:49 67 155/67 01/16/21 02:00 68 11 L 138/63 99 01/16/21 01:00 70 15 137/58 99 01/16/21 00:05 69 01/16/21 00:00 68 18 139/64 01/15/21 23:28 97.4 F L 01/15/21 23:00 74 11 L 120/57 96 01/15/21 22:16 75 13 137/58 95 01/15/21 22:15 17 01/15/21 22:08 17 01/15/21 22:00 68 23 131/55 98 01/15/21 21:47 65 150/60 01/15/21 21:45 64 150/60 01/15/21 21:19 100 01/15/21 21:00 66 12 141/65 99 01/15/21 20:18 65 01/15/21 20:00 97.9 F 67 14 145/70 99 01/15/21 19:00 67 25 H 133/64 97 01/15/21 18:15 68 151/67 01/15/21 18:00 68 16 151/67 96 01/15/21 17:00 67 9 L 133/65 97 01/15/21 16:00 98.6 F 75 28 H 141/62 97 01/15/21 15:00 78 15 141/65 95 01/15/21 14:00 82 21 133/58 97 01/15/21 13:39 75 135/61 01/15/21 13:00 74 13 153/70 92 Pulse Ox 01/16/21 12:30 01/16/21 12:15 01/16/21 12:00 01/16/21 11:45 01/16/21 11:30 01/16/21 11:15 01/16/21 11:00 01/16/21 10:45 01/16/21 10:30 01/16/21 10:15 01/16/21 10:01 01/16/21 10:00 01/16/21 09:48 01/16/21 09:44 98 01/16/21 09:21 01/16/21 09:19 01/16/21 08:00 01/16/21 07:00 01/16/21 06:17 01/16/21 06:00 01/16/21 05:00 01/16/21 04:06 01/16/21 04:00 01/16/21 03:55 01/16/21 03:39 01/16/21 03:36 01/16/21 03:00 01/16/21 02:50 01/16/21 02:49 01/16/21 02:00 01/16/21 01:00 01/16/21 00:05 01/16/21 00:00 01/15/21 23:28 01/15/21 23:00 01/15/21 22:16 01/15/21 22:15 01/15/21 22:08 01/15/21 22:00 01/15/21 21:47 01/15/21 21:45 01/15/21 21:19 01/15/21 21:00 01/15/21 20:18 01/15/21 20:00 01/15/21 19:00 01/15/21 18:15 01/15/21 18:00 01/15/21 17:00 01/15/21 16:00 01/15/21 15:00 01/15/21 14:00 01/15/21 13:39 01/15/21 13:00 - Physical Examination General: No Apparent Distress HEENT: Positive: PERRL Neck: Positive: neck supple Cardiac: Positive: Irregularly Regular Lungs: Positive: Decreased Breath Sounds Neuro: Positive: Weakness (Sedated, on the vent) Abdomen: Positive: Other (post op) Skin: Positive: Clear Extremities: Present: normal. Absent: edema - Labs and Meds CBC 01/16/21 Range/Units 06:44 WBC 14.8 H (4.5-11.0) K/mm3 RBC 2.76 L (3.65-5.03) M/mm3 Hgb 8.2 L (11.8-15.2) gm/dl Hct 24.8 L (35.5-45.6) % Plt Count 331 (140-440) K/mm3 Comprehensive Metabolic Panel 01/16/21 Range/Units 06:44 Sodium 133 L (137-145) mmol/L Potassium 4.2 (3.6-5.0) mmol/L Chloride 92.3 L (98-107) mmol/L Carbon Dioxide 20 L (22-30) mmol/L BUN 160 H (9-20) mg/dL Creatinine 12.1 H (0.8-1.3) mg/dL Glucose 177 H (75-100) mg/dL Calcium 8.1 L (8.4-10.2) mg/dL - Allied health notes Allied health notes reviewed: nursing
--- NOTE | 2021-01-16 13:23 | Progress Note ---
Assessment and Plan POD#23 s/p ex lap with extensive lysis of adhesions and two small bowel resections with primary anastamosis for SBO with necrotic segment small bowel. POD#14 s/p ex lap, resection of perforated anastamosis, washout and abthera wound vac placement. POD#12 s/p ex lap with right hemicolectomy. POD#10 s/p ex lap, with jejunal-colonic anastamosis and closure of abdomen. Afebrile and stable. - concerned about a leak at his anastamosis. Clinically improved with decreased output that is becoming more serous. Blood supply was evaluated at time of last surgery with ICG and found to be adequate. Pt was on several days of steroids for tongue swelling which may have contributed to leak. Currently since he is stable and afebrile will treat like controlled fistua. He is extremely high risk for additional surgery with tissues that are extremely friable and previous scar tissue that makes his anatomy very difficult to manipulate. Will continue octreotide drip to try to slow down GI output. Continue HARIS drain suction with and NGT deccompression. Strict NPO except for small amount of ice chips. If he requires operative intervention will likely need to be left in discontinuity and eventual ileostomy as he has already failed two anastamoses. Prognosis is gaurded. continue abx, spoke with Dr. Denny Subjective Date of service: 01/16/21 Patient Reports: Positive: no new complaints (no acute events. pt denies pain. Was on dialysis at time of evaluation. ), bowel movement. Negative: nausea, vomiting Objective Vital Signs - 12hr 01/16/21 01/16/21 01/16/21 02:00 02:49 02:50 Temperature Pulse Rate 68 67 63 Pulse Rate [ From Monitor] Respiratory 11 L Rate Blood Pressure 138/63 155/67 155/67 O2 Sat by Pulse 99 Oximetry O2 Sat by Pulse Oximetry [ Anterior Bilateral Throughout] 01/16/21 01/16/21 01/16/21 03:00 03:36 03:39 Temperature 98.4 F Pulse Rate 62 Pulse Rate [ From Monitor] Respiratory 14 14 Rate Blood Pressure 151/67 O2 Sat by Pulse 99 Oximetry O2 Sat by Pulse Oximetry [ Anterior Bilateral Throughout] 01/16/21 01/16/21 01/16/21 03:55 04:00 04:06 Temperature Pulse Rate 78 79 Pulse Rate [ 78 From Monitor] Respiratory 15 14 Rate Blood Pressure 144/72 O2 Sat by Pulse 98 Oximetry O2 Sat by Pulse Oximetry [ Anterior Bilateral Throughout] 01/16/21 01/16/21 01/16/21 05:00 06:00 06:17 Temperature Pulse Rate 76 72 70 Pulse Rate [ From Monitor] Respiratory 14 24 Rate Blood Pressure 143/62 146/60 151/60 O2 Sat by Pulse 97 98 Oximetry O2 Sat by Pulse Oximetry [ Anterior Bilateral Throughout] 01/16/21 01/16/21 01/16/21 07:00 08:00 09:19 Temperature 98.7 F Pulse Rate 70 69 71 Pulse Rate [ From Monitor] Respiratory 13 15 26 H Rate Blood Pressure 137/61 137/56 O2 Sat by Pulse 98 98 Oximetry O2 Sat by Pulse Oximetry [ Anterior Bilateral Throughout] 01/16/21 01/16/21 01/16/21 09:21 09:44 09:48 Temperature 98.6 F Pulse Rate 67 64 Pulse Rate [ From Monitor] Respiratory 19 Rate Blood Pressure 138/61 149/65 O2 Sat by Pulse 100 Oximetry O2 Sat by Pulse 98 Oximetry [ Anterior Bilateral Throughout] 01/16/21 01/16/21 01/16/21 10:00 10:01 10:15 Temperature Pulse Rate 72 76 68 Pulse Rate [ From Monitor] Respiratory 25 H Rate Blood Pressure 138/52 138/52 132/53 O2 Sat by Pulse 98 Oximetry O2 Sat by Pulse Oximetry [ Anterior Bilateral Throughout] 01/16/21 01/16/21 01/16/21 10:30 10:45 11:00 Temperature Pulse Rate 70 71 65 Pulse Rate [ From Monitor] Respiratory Rate Blood Pressure 121/39 123/51 123/45 O2 Sat by Pulse Oximetry O2 Sat by Pulse Oximetry [ Anterior Bilateral Throughout] 01/16/21 01/16/21 01/16/21 11:15 11:30 11:45 Temperature Pulse Rate 69 73 73 Pulse Rate [ From Monitor] Respiratory Rate Blood Pressure 109/42 121/49 122/51 O2 Sat by Pulse Oximetry O2 Sat by Pulse Oximetry [ Anterior Bilateral Throughout] 01/16/21 01/16/21 01/16/21 12:00 12:15 12:30 Temperature 99.2 F Pulse Rate 71 91 H 86 Pulse Rate [ From Monitor] Respiratory Rate Blood Pressure 128/51 134/50 119/56 O2 Sat by Pulse Oximetry O2 Sat by Pulse Oximetry [ Anterior Bilateral Throughout] 01/16/21 01/16/21 12:45 13:00 Temperature Pulse Rate 86 87 Pulse Rate [ From Monitor] Respiratory Rate Blood Pressure 116/59 112/56 O2 Sat by Pulse Oximetry O2 Sat by Pulse Oximetry [ Anterior Bilateral Throughout] - General physical appearance well nourished, no distress, no pain, chronically ill - Respiratory normal expansion, normal respiratory effort - Abdomen soft, other (protuberent, HARIS drain with 20cc recorded last 24 hours. much less bilious. sero/bilious, small amount in bulb) - Labs 01/16/21 06:44 01/16/21 06:44 Diabetes panel 01/16/21 Range/Units 06:44 Sodium 133 L (137-145) mmol/L Potassium 4.2 (3.6-5.0) mmol/L Chloride 92.3 L (98-107) mmol/L Carbon Dioxide 20 L (22-30) mmol/L BUN 160 H (9-20) mg/dL Creatinine 12.1 H (0.8-1.3) mg/dL Glucose 177 H (75-100) mg/dL Calcium 8.1 L (8.4-10.2) mg/dL Calcium panel 01/16/21 Range/Units 06:44 Calcium 8.1 L (8.4-10.2) mg/dL Phosphorus 5.50 H (2.5-4.5) mg/dL Pituitary panel 01/16/21 Range/Units 06:44 Sodium 133 L (137-145) mmol/L Potassium 4.2 (3.6-5.0) mmol/L Chloride 92.3 L (98-107) mmol/L Carbon Dioxide 20 L (22-30) mmol/L BUN 160 H (9-20) mg/dL Creatinine 12.1 H (0.8-1.3) mg/dL Glucose 177 H (75-100) mg/dL Calcium 8.1 L (8.4-10.2) mg/dL Adrenal panel 01/16/21 Range/Units 06:44 Sodium 133 L (137-145) mmol/L Potassium 4.2 (3.6-5.0) mmol/L Chloride 92.3 L (98-107) mmol/L Carbon Dioxide 20 L (22-30) mmol/L BUN 160 H (9-20) mg/dL Creatinine 12.1 H (0.8-1.3) mg/dL Glucose 177 H (75-100) mg/dL Calcium 8.1 L (8.4-10.2) mg/dL
--- NOTE | 2021-01-16 13:39 | Progress Note ---
Assessment and Plan This is a 60 YO Male with ESRD on PD, GERD, Crohn's Disease, Nicotine Dependence, HTN, Systolic CHF(EF 35%) who presented to the emergency department on 12/22 with complaints of abdominal pain which began shortly after eating fast food rated 10/10 which is periumbilical, constant, associated with fever, nausea and multiple sites of vomiting and self-reported inability to undergo PD. In the emergency room patient underwent a CT scan of the abdomen/pelvis which revealed evidence of partial small bowel obstruction, symptoms were consistent with bacterial peritonitis. Patient was admitted to the hospital service with sepsis, peritonitis, and small bowel obstruction with consults to general surgery, nephrology, infectious disease and [facility]. On 01/06/21 the patient underwent an exploratory laparotomy, jejunal colonic anastomosis, and segmental small bowel resection. Patient alert, and awake. Resting on room air. O2 saturation 96%. Denies chest pain, SOB, or cough. ABG's (01/07/21): pH 7.345 pH POC ABG pCO2 41.4 mmHg ABG pCO2 40.3 mm Hg POC ABG pO2 94.5 mmHg ABG pO2 67.4 mm Hg POC ABG HCO3 22.7 ABG O2 Saturation 94.3 % Patient afebrile with leukocytosis. Chest x-ray reported There is decreased inspiration compared to yesterday's exam. Hazy opacity in the right perihilar region and larger area of infiltration in the left lower lung appears stable given differences in the level of inspiration. No large pleural effusion or pneumothorax. Patient presently on zosyn, s/c heparin, famotidine I spent critical care time of 40 minutes reviewing the chart, examining the patient, reviewing the chest x-ray and laboratory results, and talking to the nursing staff and respiratory therapists, and working out a plan of treatment. - Patient Problems (1) Nicotine dependence Current Visit: Yes Status: Acute Qualifiers: Nicotine product type: cigarettes Substance use status: in withdrawal Qualified Code(s): F17.213 - Nicotine dependence, cigarettes, with withdrawal Plan to address problem: Counseled patient to stop smoking. (2) SOB (shortness of breath) Current Visit: No Status: Acute Plan to address problem: Improved. Patient resting on room air at this time. (3) Atrial fibrillation Current Visit: Yes Status: Acute Plan to address problem: Management as per cardiology. (4) CHF (congestive heart failure) Current Visit: No Status: Acute Qualifiers: Heart failure chronicity: chronic Plan to address problem: Management as per cardiology. (5) Small bowel obstruction Current Visit: Yes Status: Acute Plan to address problem: On 01/06/21 the patient underwent an exploratory laparotomy, jejunal colonic anastomosis, and segmental small bowel resection. Management as per surgery. Continue incentive spirometry (6) Small intestinal gangrene Current Visit: Yes Status: Acute Plan to address problem: On 01/06/21 the patient underwent an exploratory laparotomy, jejunal colonic anastomosis, and segmental small bowel resection. Management as per surgery. Continue incentive spirometry (7) Accelerated hypertension Current Visit: No Status: Acute Plan to address problem: Management as per primary care. (8) Acute on chronic kidney disease, stage 3 Current Visit: No Status: Acute Plan to address problem: Management as per nephrology. Subjective Date of service: 01/16/21 Principal diagnosis: Ac hypoxemic resp failure; Severe Sepsis; Peritonitis; Acute SBO; ESRD; CHF Interval history: This is a 60 YO Male with ESRD on PD, GERD, Crohn's Disease, Nicotine Dependence, HTN, Systolic CHF(EF 35%) who presented to the emergency department on 12/22 with complaints of abdominal pain which began shortly after eating fast food rated 10/10 which is periumbilical, constant, associated with fever, nausea and multiple sites of vomiting and self-reported inability to undergo PD. In the emergency room patient underwent a CT scan of the abdomen/pelvis which revealed evidence of partial small bowel obstruction, symptoms were consistent with bacterial peritonitis. Patient was admitted to the hospital service with sepsis, peritonitis, and small bowel obstruction with consults to general surgery, nephrology, infectious disease and [facility]. On 01/06/21 the patient underwent an exploratory laparotomy, jejunal colonic anastomosis, and segmental small bowel resection. Patient alert, and awake. Resting on room air. O2 saturation 96%. Denies chest pain, SOB, or cough. ABG's (01/07/21): pH 7.345 pH POC ABG pCO2 41.4 mmHg ABG pCO2 40.3 mm Hg POC ABG pO2 94.5 mmHg ABG pO2 67.4 mm Hg POC ABG HCO3 22.7 ABG O2 Saturation 94.3 % Patient afebrile with leukocytosis. Chest x-ray reported There is decreased inspiration compared to yesterday's exam. Hazy opacity in the right perihilar region and larger area of infiltration in the left lower lung appears stable given differences in the level of inspiration. No large pleural effusion or pneumothorax. Patient presently on zosyn, s/c heparin, famotidine Objective Vital Signs - 12hr 01/16/21 01/16/21 01/16/21 02:00 02:49 02:50 Temperature Pulse Rate 68 67 63 Pulse Rate [ From Monitor] Respiratory 11 L Rate Blood Pressure 138/63 155/67 155/67 O2 Sat by Pulse 99 Oximetry O2 Sat by Pulse Oximetry [ Anterior Bilateral Throughout] 01/16/21 01/16/21 01/16/21 03:00 03:36 03:39 Temperature 98.4 F Pulse Rate 62 Pulse Rate [ From Monitor] Respiratory 14 14 Rate Blood Pressure 151/67 O2 Sat by Pulse 99 Oximetry O2 Sat by Pulse Oximetry [ Anterior Bilateral Throughout] 01/16/21 01/16/21 01/16/21 03:55 04:00 04:06 Temperature Pulse Rate 78 79 Pulse Rate [ 78 From Monitor] Respiratory 15 14 Rate Blood Pressure 144/72 O2 Sat by Pulse 98 Oximetry O2 Sat by Pulse Oximetry [ Anterior Bilateral Throughout] 01/16/21 01/16/21 01/16/21 05:00 06:00 06:17 Temperature Pulse Rate 76 72 70 Pulse Rate [ From Monitor] Respiratory 14 24 Rate Blood Pressure 143/62 146/60 151/60 O2 Sat by Pulse 97 98 Oximetry O2 Sat by Pulse Oximetry [ Anterior Bilateral Throughout] 01/16/21 01/16/21 01/16/21 07:00 08:00 09:19 Temperature 98.7 F Pulse Rate 70 69 71 Pulse Rate [ From Monitor] Respiratory 13 15 26 H Rate Blood Pressure 137/61 137/56 O2 Sat by Pulse 98 98 Oximetry O2 Sat by Pulse Oximetry [ Anterior Bilateral Throughout] 01/16/21 01/16/21 01/16/21 09:21 09:44 09:48 Temperature 98.6 F Pulse Rate 67 64 Pulse Rate [ From Monitor] Respiratory 19 Rate Blood Pressure 138/61 149/65 O2 Sat by Pulse 100 Oximetry O2 Sat by Pulse 98 Oximetry [ Anterior Bilateral Throughout] 01/16/21 01/16/21 01/16/21 10:00 10:01 10:15 Temperature Pulse Rate 72 76 68 Pulse Rate [ From Monitor] Respiratory 25 H Rate Blood Pressure 138/52 138/52 132/53 O2 Sat by Pulse 98 Oximetry O2 Sat by Pulse Oximetry [ Anterior Bilateral Throughout] 01/16/21 01/16/21 01/16/21 10:30 10:45 11:00 Temperature Pulse Rate 70 71 65 Pulse Rate [ From Monitor] Respiratory Rate Blood Pressure 121/39 123/51 123/45 O2 Sat by Pulse Oximetry O2 Sat by Pulse Oximetry [ Anterior Bilateral Throughout] 01/16/21 01/16/21 01/16/21 11:15 11:30 11:45 Temperature Pulse Rate 69 73 73 Pulse Rate [ From Monitor] Respiratory Rate Blood Pressure 109/42 121/49 122/51 O2 Sat by Pulse Oximetry O2 Sat by Pulse Oximetry [ Anterior Bilateral Throughout] 01/16/21 01/16/21 01/16/21 12:00 12:15 12:30 Temperature 99.2 F Pulse Rate 71 91 H 86 Pulse Rate [ From Monitor] Respiratory Rate Blood Pressure 128/51 134/50 119/56 O2 Sat by Pulse Oximetry O2 Sat by Pulse Oximetry [ Anterior Bilateral Throughout] 01/16/21 01/16/21 01/16/21 12:45 13:00 13:18 Temperature Pulse Rate 86 87 81 Pulse Rate [ From Monitor] Respiratory Rate Blood Pressure 116/59 112/56 115/51 O2 Sat by Pulse Oximetry O2 Sat by Pulse Oximetry [ Anterior Bilateral Throughout] 01/16/21 13:30 Temperature 98.8 F Pulse Rate 78 Pulse Rate [ From Monitor] Respiratory 21 Rate Blood Pressure 108/57 O2 Sat by Pulse Oximetry O2 Sat by Pulse 98 Oximetry [ Anterior Bilateral Throughout] Constitutional: no acute distress, alert Eyes: non-icteric ENT: oropharynx moist, oropharyngeal exudate pre (improved), other (macroglossia improved) Neck: supple, no lymphadenopathy, no JVD Effort: normal Ascultation: Bilateral: diminished breath sounds, rales, rhonchi Percussion: Bilateral: not dull Cardiovascular: regular rate and rhythm Gastrointestinal: hypoactive bowel sounds, soft, non-tender, non-distended (protuberant), other (Midline abdominal incision ) Integumentary: other (Midline abdominal incision ) Extremities: no cyanosis, no edema, pulses normal, no ischemia or petechiae Neurologic: non-focal exam (grossly), pupils equal and round, CN II-XII normal, motor strength normal and (sedated) Psychiatric: mood appropriate, affect normal CBC and BMP: 01/16/21 06:44 01/16/21 06:44 ABG, PT/INR, D-dimer: ABG ABG pH 7.345 pH Units (7.350-7.450) L 01/07/21 17:14 POC ABG pCO2 41.4 mmHg (32.0-48.0) 01/07/21 03:07 ABG pCO2 40.3 mm Hg 01/07/21 17:14 POC ABG pO2 94.5 mmHg (83-108) 01/07/21 03:07 ABG pO2 67.4 mm Hg (80.0-90.0) L 01/07/21 17:14 POC ABG HCO3 22.7 01/07/21 03:07 ABG O2 Saturation 94.3 % (95.0-99.0) L 01/07/21 17:14 PT/INR, D-dimer PT 16.9 Sec. (12.2-14.9) H 01/01/21 12:45 INR 1.39 (0.87-1.13) H 01/01/21 12:45 Abnormal lab findings: Abnormal Labs 12/22/20 12/22/20 12/22/20 14:38 14:38 14:38 WBC RBC Hgb 11.2 L Hct 35.0 L MCV MCHC RDW 16.7 H Plt Count Lymph % (Auto) [place] % (Auto) Lymph # (Auto) [place] # (Auto) Seg Neutrophils % Seg Neuts % (Manual) 94.0 H Lymphocytes % (Manual) 5.0 L Monocytes % (Manual) Seg Neutrophils # Seg Neutrophils # Man Lymphocytes # (Manual) 0.3 L Monocytes # (Manual) PT INR ABG pH POC ABG pCO2 POC ABG pO2 ABG pO2 ABG HCO3 ABG O2 Saturation ABG Base Excess ABG Hemoglobin ABG Oxyhemoglobin ABG Sodium ABG Potassium ABG Chloride ABG Glucose Oxyhemoglobin Sodium Potassium Chloride Carbon Dioxide BUN 58 H Creatinine 13.2 H Glucose 113 H POC Glucose Lactic Acid 3.60 H* Calcium Phosphorus Magnesium Total Bilirubin 1.30 H AST ALT Alkaline Phosphatase 155 H Total Protein Albumin Triglycerides Arterial Blood Glucose Arterial Blood Ionized Calcium Digoxin Crossmatch 12/22/20 12/22/20 12/23/20 16:26 17:47 05:22 WBC RBC Hgb Hct MCV MCHC RDW Plt Count Lymph % (Auto) [place] % (Auto) Lymph # (Auto) [place] # (Auto) Seg Neutrophils % Seg Neuts % (Manual) Lymphocytes % (Manual) Monocytes % (Manual) Seg Neutrophils # Seg Neutrophils # Man Lymphocytes # (Manual) Monocytes # (Manual) PT INR ABG pH POC ABG pCO2 POC ABG pO2 ABG pO2 ABG HCO3 ABG O2 Saturation ABG Base Excess ABG Hemoglobin ABG Oxyhemoglobin ABG Sodium ABG Potassium ABG Chloride ABG Glucose Oxyhemoglobin Sodium Potassium Chloride Carbon Dioxide BUN Creatinine Glucose POC Glucose Lactic Acid 2.80 H* 3.10 H* 2.30 H* Calcium Phosphorus Magnesium Total Bilirubin AST ALT Alkaline Phosphatase Total Protein Albumin Triglycerides Arterial Blood Glucose Arterial Blood Ionized Calcium Digoxin Crossmatch 12/23/20 12/23/20 12/23/20 05:22 05:22 06:35 WBC 12.1 H RBC Hgb 11.0 L Hct 33.7 L MCV MCHC RDW 16.9 H Plt Count Lymph % (Auto) [place] % (Auto) Lymph # (Auto) [place] # (Auto) Seg Neutrophils % Seg Neuts % (Manual) 93.0 H Lymphocytes % (Manual) 1.0 L Monocytes % (Manual) Seg Neutrophils # Seg Neutrophils # Man 11.3 H Lymphocytes # (Manual) 0.1 L Monocytes # (Manual) PT INR ABG pH POC ABG pCO2 POC ABG pO2 ABG pO2 ABG HCO3 ABG O2 Saturation ABG Base Excess ABG Hemoglobin ABG Oxyhemoglobin ABG Sodium ABG Potassium ABG Chloride ABG Glucose Oxyhemoglobin Sodium Potassium 5.7 H D Chloride Carbon Dioxide BUN 73 H Creatinine 14.2 H Glucose POC Glucose Lactic Acid 2.30 H* Calcium 7.9 L Phosphorus Magnesium Total Bilirubin 1.40 H AST 119 H ALT 130 H Alkaline Phosphatase 183 H Total Protein 6.1 L Albumin 3.6 L Triglycerides Arterial Blood Glucose Arterial Blood Ionized Calcium Digoxin Crossmatch 12/23/20 12/23/20 12/23/20 11:40 13:53 16:47 WBC RBC Hgb 10.0 L Hct 30.4 L MCV MCHC RDW Plt Count Lymph % (Auto) [place] % (Auto) Lymph # (Auto) [place] # (Auto) Seg Neutrophils % Seg Neuts % (Manual) Lymphocytes % (Manual) Monocytes % (Manual) Seg Neutrophils # Seg Neutrophils # Man Lymphocytes # (Manual) Monocytes # (Manual) PT INR ABG pH POC ABG pCO2 POC ABG pO2 137.5 H ABG pO2 ABG HCO3 ABG O2 Saturation ABG Base Excess ABG Hemoglobin 9.7 L ABG Oxyhemoglobin ABG Sodium 134.1 L ABG Potassium 6.6 H ABG Chloride ABG Glucose 103 H Oxyhemoglobin Sodium Potassium Chloride Carbon Dioxide BUN Creatinine Glucose POC Glucose Lactic Acid Calcium Phosphorus Magnesium Total Bilirubin AST ALT Alkaline Phosphatase Total Protein Albumin Triglycerides Arterial Blood Glucose 103 H Arterial Blood Ionized Calcium 3.8 L Digoxin Crossmatch See Detail 12/23/20 12/23/20 12/24/20 20:35 20:40 01:20 WBC RBC Hgb Hct MCV MCHC RDW Plt Count Lymph % (Auto) [place] % (Auto) Lymph # (Auto) [place] # (Auto) Seg Neutrophils % Seg Neuts % (Manual) Lymphocytes % (Manual) Monocytes % (Manual) Seg Neutrophils # Seg Neutrophils # Man Lymphocytes # (Manual) Monocytes # (Manual) PT INR ABG pH 7.252 L POC ABG pCO2 POC ABG pO2 ABG pO2 50.1 L ABG HCO3 ABG O2 Saturation 81.1 L ABG Base Excess -5.9 L ABG Hemoglobin 12.1 L ABG Oxyhemoglobin ABG Sodium ABG Potassium ABG Chloride ABG Glucose Oxyhemoglobin 78.6 L Sodium 134 L Potassium 6.9 H* D 6.3 H* Chloride Carbon Dioxide 18 L 20 L BUN 87 H 91 H Creatinine 15.3 H 15.3 H Glucose 103 H POC Glucose Lactic Acid Calcium 6.9 L 7.5 L Phosphorus Magnesium Total Bilirubin AST ALT Alkaline Phosphatase Total Protein Albumin Triglycerides Arterial Blood Glucose Arterial Blood Ionized Calcium Digoxin Crossmatch 12/24/20 12/24/20 12/24/20 04:00 10:29 10:29 WBC RBC 3.49 L Hgb 10.5 L Hct 31.2 L MCV MCHC RDW 17.5 H Plt Count 124 L Lymph % (Auto) 3.7 L [place] % (Auto) 9.8 H Lymph # (Auto) 0.2 L [place] # (Auto) Seg Neutrophils % 85.9 H Seg Neuts % (Manual) Lymphocytes % (Manual) Monocytes % (Manual) Seg Neutrophils # Seg Neutrophils # Man Lymphocytes # (Manual) Monocytes # (Manual) PT INR ABG pH POC ABG pCO2 28.1 L POC ABG pO2 ABG pO2 ABG HCO3 ABG O2 Saturation ABG Base Excess ABG Hemoglobin ABG Oxyhemoglobin ABG Sodium 133.9 L ABG Potassium 5.3 H ABG Chloride 108.0 H ABG Glucose Oxyhemoglobin Sodium Potassium 5.6 H Chloride Carbon Dioxide 19 L BUN 99 H Creatinine 16.9 H Glucose 52 L POC Glucose Lactic Acid Calcium 7.6 L Phosphorus Magnesium Total Bilirubin 3.50 H AST 67 H ALT 71 H Alkaline Phosphatase Total Protein 3.5 L D Albumin 2.1 L Triglycerides Arterial Blood Glucose Arterial Blood Ionized Calcium 4.0 L Digoxin Crossmatch 12/25/20 12/25/20 12/25/20 03:33 04:00 04:00 WBC 3.8 L RBC 2.90 L Hgb 8.6 L Hct 25.7 L MCV MCHC RDW 16.7 H Plt Count 113 L Lymph % (Auto) [place] % (Auto) Lymph # (Auto) [place] # (Auto) Seg Neutrophils % Seg Neuts % (Manual) Lymphocytes % (Manual) Monocytes % (Manual) Seg Neutrophils # Seg Neutrophils # Man Lymphocytes # (Manual) Monocytes # (Manual) PT INR ABG pH 7.544 H POC ABG pCO2 28.2 L POC ABG pO2 62.8 L ABG pO2 ABG HCO3 ABG O2 Saturation ABG Base Excess ABG Hemoglobin 9.3 L ABG Oxyhemoglobin 93.0 L ABG Sodium 130.3 L ABG Potassium ABG Chloride ABG Glucose 97 H Oxyhemoglobin Sodium Potassium Chloride Carbon Dioxide BUN 62 H Creatinine 11.4 H Glucose POC Glucose Lactic Acid Calcium 7.7 L Phosphorus 5.00 H Magnesium Total Bilirubin AST ALT Alkaline Phosphatase Total Protein Albumin Triglycerides Arterial Blood Glucose 97 H Arterial Blood Ionized Calcium 3.9 L Digoxin Crossmatch 12/26/20 12/26/20 12/27/20 04:46 Unknown 03:40 WBC 4.1 L RBC 2.61 L Hgb 7.8 L Hct 23.4 L MCV MCHC RDW 17.1 H Plt Count 119 L Lymph % (Auto) 5.3 L [place] % (Auto) 10.6 H Lymph # (Auto) 0.2 L [place] # (Auto) Seg Neutrophils % 78.8 H Seg Neuts % (Manual) Lymphocytes % (Manual) Monocytes % (Manual) Seg Neutrophils # Seg Neutrophils # Man Lymphocytes # (Manual) Monocytes # (Manual) PT INR ABG pH 7.333 L 7.332 L POC ABG pCO2 POC ABG pO2 ABG pO2 ABG HCO3 26.9 H ABG O2 Saturation ABG Base Excess -2.4 L ABG Hemoglobin 6.8 L 7.2 L ABG Oxyhemoglobin ABG Sodium ABG Potassium ABG Chloride ABG Glucose Oxyhemoglobin 93.0 L 93.1 L Sodium Potassium Chloride Carbon Dioxide BUN Creatinine Glucose POC Glucose Lactic Acid Calcium Phosphorus Magnesium Total Bilirubin AST ALT Alkaline Phosphatase Total Protein Albumin Triglycerides Arterial Blood Glucose Arterial Blood Ionized Calcium Digoxin Crossmatch 12/27/20 12/27/20 12/27/20 06:40 06:40 11:22 WBC 4.4 L RBC 2.49 L Hgb 7.4 L Hct 22.4 L MCV MCHC RDW 17.1 H Plt Count 111 L Lymph % (Auto) 6.7 L [place] % (Auto) 12.6 H Lymph # (Auto) 0.3 L [place] # (Auto) Seg Neutrophils % 77.6 H Seg Neuts % (Manual) Lymphocytes % (Manual) Monocytes % (Manual) Seg Neutrophils # Seg Neutrophils # Man Lymphocytes # (Manual) Monocytes # (Manual) PT INR ABG pH POC ABG pCO2 POC ABG pO2 ABG pO2 ABG HCO3 ABG O2 Saturation ABG Base Excess ABG Hemoglobin ABG Oxyhemoglobin ABG Sodium ABG Potassium ABG Chloride ABG Glucose Oxyhemoglobin Sodium Potassium Chloride Carbon Dioxide BUN 64 H Creatinine 9.8 H Glucose 147 H POC Glucose 134 H Lactic Acid Calcium 8.3 L Phosphorus 5.00 H Magnesium Total Bilirubin 3.70 H AST 72 H ALT Alkaline Phosphatase 142 H Total Protein 5.1 L D Albumin 2.9 L Triglycerides Arterial Blood Glucose Arterial Blood Ionized Calcium Digoxin Crossmatch 12/27/20 12/27/20 12/28/20 17:29 23:31 03:09 WBC RBC Hgb Hct MCV MCHC RDW Plt Count Lymph % (Auto) [place] % (Auto) Lymph # (Auto) [place] # (Auto) Seg Neutrophils % Seg Neuts % (Manual) Lymphocytes % (Manual) Monocytes % (Manual) Seg Neutrophils # Seg Neutrophils # Man Lymphocytes # (Manual) Monocytes # (Manual) PT INR ABG pH 7.474 H POC ABG pCO2 POC ABG pO2 ABG pO2 ABG HCO3 ABG O2 Saturation ABG Base Excess ABG Hemoglobin 7.8 L ABG Oxyhemoglobin ABG Sodium ABG Potassium ABG Chloride ABG Glucose Oxyhemoglobin Sodium Potassium Chloride Carbon Dioxide BUN Creatinine Glucose POC Glucose 121 H 131 H Lactic Acid Calcium Phosphorus Magnesium Total Bilirubin AST ALT Alkaline Phosphatase Total Protein Albumin Triglycerides Arterial Blood Glucose Arterial Blood Ionized Calcium Digoxin Crossmatch 12/28/20 12/28/20 12/28/20 05:37 05:40 05:40 WBC 4.3 L RBC 2.40 L Hgb 7.2 L Hct 21.5 L MCV MCHC RDW 17.4 H Plt Count 112 L Lymph % (Auto) 6.5 L [place] % (Auto) 16.7 H Lymph # (Auto) 0.3 L [place] # (Auto) Seg Neutrophils % 71.1 H Seg Neuts % (Manual) Lymphocytes % (Manual) Monocytes % (Manual) Seg Neutrophils # Seg Neutrophils # Man Lymphocytes # (Manual) Monocytes # (Manual) PT INR ABG pH POC ABG pCO2 POC ABG pO2 ABG pO2 ABG HCO3 ABG O2 Saturation ABG Base Excess ABG Hemoglobin ABG Oxyhemoglobin ABG Sodium ABG Potassium ABG Chloride ABG Glucose Oxyhemoglobin Sodium Potassium Chloride Carbon Dioxide BUN 85 H Creatinine 11.5 H Glucose 132 H POC Glucose 121 H Lactic Acid Calcium 8.2 L Phosphorus Magnesium 2.40 H Total Bilirubin 3.80 H AST 70 H ALT Alkaline Phosphatase 176 H Total Protein 5.0 L Albumin 2.9 L Triglycerides Arterial Blood Glucose Arterial Blood Ionized Calcium Digoxin Crossmatch 12/28/20 12/28/20 12/28/20 11:34 15:00 17:35 WBC RBC Hgb Hct MCV MCHC RDW Plt Count Lymph % (Auto) [place] % (Auto) Lymph # (Auto) [place] # (Auto) Seg Neutrophils % Seg Neuts % (Manual) Lymphocytes % (Manual) Monocytes % (Manual) Seg Neutrophils # Seg Neutrophils # Man Lymphocytes # (Manual) Monocytes # (Manual) PT INR ABG pH 7.461 H POC ABG pCO2 POC ABG pO2 72.2 L ABG pO2 ABG HCO3 ABG O2 Saturation ABG Base Excess ABG Hemoglobin 8.2 L ABG Oxyhemoglobin 93.6 L ABG Sodium 134.1 L ABG Potassium 3.2 L ABG Chloride ABG Glucose 135 H Oxyhemoglobin Sodium Potassium Chloride Carbon Dioxide BUN Creatinine Glucose POC Glucose 137 H 144 H Lactic Acid Calcium Phosphorus Magnesium Total Bilirubin AST ALT Alkaline Phosphatase Total Protein Albumin Triglycerides Arterial Blood Glucose 135 H Arterial Blood Ionized Calcium 4.4 L Digoxin Crossmatch 12/28/20 12/28/20 12/29/20 19:44 Unknown 00:21 WBC RBC Hgb Hct MCV MCHC RDW Plt Count Lymph % (Auto) [place] % (Auto) Lymph # (Auto) [place] # (Auto) Seg Neutrophils % Seg Neuts % (Manual) Lymphocytes % (Manual) Monocytes % (Manual) Seg Neutrophils # Seg Neutrophils # Man Lymphocytes # (Manual) Monocytes # (Manual) PT INR ABG pH 7.474 H POC ABG pCO2 POC ABG pO2 ABG pO2 ABG HCO3 ABG O2 Saturation ABG Base Excess ABG Hemoglobin 7.8 L ABG Oxyhemoglobin ABG Sodium 133.2 L ABG Potassium ABG Chloride ABG Glucose 139 H Oxyhemoglobin Sodium 135 L Potassium Chloride 96.6 L Carbon Dioxide BUN 47 H Creatinine 7.4 H Glucose 130 H POC Glucose 142 H Lactic Acid Calcium 8.3 L Phosphorus Magnesium Total Bilirubin AST ALT Alkaline Phosphatase Total Protein Albumin Triglycerides Arterial Blood Glucose 139 H Arterial Blood Ionized Calcium 4.3 L Digoxin Crossmatch 12/29/20 12/29/20 12/29/20 05:16 05:16 05:26 WBC RBC 2.53 L Hgb 7.7 L Hct 22.8 L MCV MCHC RDW 17.0 H Plt Count 130 L Lymph % (Auto) [place] % (Auto) Lymph # (Auto) [place] # (Auto) Seg Neutrophils % Seg Neuts % (Manual) 79.0 H Lymphocytes % (Manual) 9.0 L Monocytes % (Manual) Seg Neutrophils # Seg Neutrophils # Man Lymphocytes # (Manual) 0.6 L Monocytes # (Manual) PT INR ABG pH POC ABG pCO2 POC ABG pO2 ABG pO2 ABG HCO3 ABG O2 Saturation ABG Base Excess ABG Hemoglobin ABG Oxyhemoglobin ABG Sodium ABG Potassium ABG Chloride ABG Glucose Oxyhemoglobin Sodium Potassium 3.4 L Chloride 96.6 L Carbon Dioxide BUN 59 H Creatinine 8.3 H Glucose 127 H POC Glucose 141 H Lactic Acid Calcium 8.2 L Phosphorus Magnesium Total Bilirubin 3.00 H AST 88 H ALT Alkaline Phosphatase 188 H Total Protein 5.1 L Albumin 2.8 L Triglycerides Arterial Blood Glucose Arterial Blood Ionized Calcium Digoxin Crossmatch 12/29/20 12/29/20 12/29/20 11:33 17:29 23:22 WBC RBC Hgb Hct MCV MCHC RDW Plt Count Lymph % (Auto) [place] % (Auto) Lymph # (Auto) [place] # (Auto) Seg Neutrophils % Seg Neuts % (Manual) Lymphocytes % (Manual) Monocytes % (Manual) Seg Neutrophils # Seg Neutrophils # Man Lymphocytes # (Manual) Monocytes # (Manual) PT INR ABG pH POC ABG pCO2 POC ABG pO2 ABG pO2 ABG HCO3 ABG O2 Saturation ABG Base Excess ABG Hemoglobin ABG Oxyhemoglobin ABG Sodium ABG Potassium ABG Chloride ABG Glucose Oxyhemoglobin Sodium Potassium Chloride Carbon Dioxide BUN Creatinine Glucose POC Glucose 144 H 130 H 117 H Lactic Acid Calcium Phosphorus Magnesium Total Bilirubin AST ALT Alkaline Phosphatase Total Protein Albumin Triglycerides Arterial Blood Glucose Arterial Blood Ionized Calcium Digoxin Crossmatch 12/30/20 12/30/20 12/30/20 05:23 08:15 09:00 WBC RBC Hgb Hct MCV MCHC RDW Plt Count Lymph % (Auto) [place] % (Auto) Lymph # (Auto) [place] # (Auto) Seg Neutrophils % Seg Neuts % (Manual) Lymphocytes % (Manual) Monocytes % (Manual) Seg Neutrophils # Seg Neutrophils # Man Lymphocytes # (Manual) Monocytes # (Manual) PT INR ABG pH POC ABG pCO2 POC ABG pO2 ABG pO2 ABG HCO3 ABG O2 Saturation ABG Base Excess ABG Hemoglobin ABG Oxyhemoglobin ABG Sodium ABG Potassium ABG Chloride ABG Glucose Oxyhemoglobin Sodium 135 L Potassium Chloride 95.9 L Carbon Dioxide BUN 85 H Creatinine 10.6 H Glucose 128 H POC Glucose 135 H 127 H Lactic Acid Calcium 8.3 L Phosphorus Magnesium Total Bilirubin 2.40 H AST 85 H ALT Alkaline Phosphatase 216 H Total Protein 5.3 L Albumin 2.6 L Triglycerides 155 H Arterial Blood Glucose Arterial Blood Ionized Calcium Digoxin Crossmatch 12/30/20 12/30/20 12/30/20 09:00 11:53 15:49 WBC RBC 2.61 L Hgb 7.8 L Hct 23.7 L MCV MCHC RDW 17.3 H Plt Count Lymph % (Auto) [place] % (Auto) Lymph # (Auto) [place] # (Auto) Seg Neutrophils % Seg Neuts % (Manual) Lymphocytes % (Manual) Monocytes % (Manual) Seg Neutrophils # Seg Neutrophils # Man Lymphocytes # (Manual) Monocytes # (Manual) PT INR ABG pH POC ABG pCO2 POC ABG pO2 ABG pO2 ABG HCO3 ABG O2 Saturation ABG Base Excess ABG Hemoglobin ABG Oxyhemoglobin ABG Sodium ABG Potassium ABG Chloride ABG Glucose Oxyhemoglobin Sodium Potassium Chloride Carbon Dioxide BUN Creatinine Glucose POC Glucose 155 H 146 H Lactic Acid Calcium Phosphorus Magnesium Total Bilirubin AST ALT Alkaline Phosphatase Total Protein Albumin Triglycerides Arterial Blood Glucose Arterial Blood Ionized Calcium Digoxin Crossmatch 12/30/20 12/30/20 12/31/20 17:53 23:45 03:56 WBC RBC Hgb Hct MCV MCHC RDW Plt Count Lymph % (Auto) [place] % (Auto) Lymph # (Auto) [place] # (Auto) Seg Neutrophils % Seg Neuts % (Manual) Lymphocytes % (Manual) Monocytes % (Manual) Seg Neutrophils # Seg Neutrophils # Man Lymphocytes # (Manual) Monocytes # (Manual) PT INR ABG pH POC ABG pCO2 POC ABG pO2 49.4 L ABG pO2 ABG HCO3 ABG O2 Saturation ABG Base Excess ABG Hemoglobin 10.3 L ABG Oxyhemoglobin 84.2 L ABG Sodium 133.1 L ABG Potassium ABG Chloride ABG Glucose 173 H Oxyhemoglobin Sodium Potassium Chloride Carbon Dioxide BUN Creatinine Glucose POC Glucose 139 H 173 H Lactic Acid Calcium Phosphorus Magnesium Total Bilirubin AST ALT Alkaline Phosphatase Total Protein Albumin Triglycerides Arterial Blood Glucose 173 H Arterial Blood Ionized Calcium Digoxin Crossmatch 12/31/20 12/31/20 12/31/20 05:07 06:51 06:51 WBC 20.3 H RBC 3.32 L Hgb 9.8 L Hct 30.3 L D MCV MCHC RDW 17.3 H Plt Count Lymph % (Auto) [place] % (Auto) Lymph # (Auto) [place] # (Auto) Seg Neutrophils % Seg Neuts % (Manual) 87.0 H Lymphocytes % (Manual) 10.0 L Monocytes % (Manual) Seg Neutrophils # Seg Neutrophils # Man 17.7 H Lymphocytes # (Manual) Monocytes # (Manual) PT INR ABG pH POC ABG pCO2 POC ABG pO2 ABG pO2 ABG HCO3 ABG O2 Saturation ABG Base Excess ABG Hemoglobin ABG Oxyhemoglobin ABG Sodium ABG Potassium ABG Chloride ABG Glucose Oxyhemoglobin Sodium Potassium 5.2 H D Chloride Carbon Dioxide BUN 62 H Creatinine 8.4 H Glucose 116 H POC Glucose 120 H Lactic Acid Calcium Phosphorus Magnesium 1.60 L Total Bilirubin AST ALT Alkaline Phosphatase Total Protein Albumin Triglycerides Arterial Blood Glucose Arterial Blood Ionized Calcium Digoxin Crossmatch 12/31/20 12/31/20 12/31/20 09:38 12:19 12:22 WBC RBC Hgb Hct MCV MCHC RDW Plt Count Lymph % (Auto) [place] % (Auto) Lymph # (Auto) [place] # (Auto) Seg Neutrophils % Seg Neuts % (Manual) Lymphocytes % (Manual) Monocytes % (Manual) Seg Neutrophils # Seg Neutrophils # Man Lymphocytes # (Manual) Monocytes # (Manual) PT INR ABG pH POC ABG pCO2 POC ABG pO2 ABG pO2 354.0 H ABG HCO3 ABG O2 Saturation 99.6 H ABG Base Excess ABG Hemoglobin 9.1 L ABG Oxyhemoglobin ABG Sodium ABG Potassium ABG Chloride ABG Glucose Oxyhemoglobin Sodium Potassium 5.2 H Chloride Carbon Dioxide BUN Creatinine Glucose POC Glucose 132 H Lactic Acid Calcium Phosphorus Magnesium Total Bilirubin AST ALT Alkaline Phosphatase Total Protein Albumin Triglycerides Arterial Blood Glucose Arterial Blood Ionized Calcium Digoxin Crossmatch 12/31/20 01/01/21 01/01/21 23:23 03:03 05:04 WBC RBC Hgb Hct MCV MCHC RDW Plt Count Lymph % (Auto) [place] % (Auto) Lymph # (Auto) [place] # (Auto) Seg Neutrophils % Seg Neuts % (Manual) Lymphocytes % (Manual) Monocytes % (Manual) Seg Neutrophils # Seg Neutrophils # Man Lymphocytes # (Manual) Monocytes # (Manual) PT INR ABG pH POC ABG pCO2 POC ABG pO2 79.6 L ABG pO2 ABG HCO3 ABG O2 Saturation ABG Base Excess ABG Hemoglobin 9.2 L ABG Oxyhemoglobin ABG Sodium 131.6 L ABG Potassium 5.8 H ABG Chloride ABG Glucose 177 H Oxyhemoglobin Sodium Potassium Chloride Carbon Dioxide BUN Creatinine Glucose POC Glucose 174 H 167 H Lactic Acid Calcium Phosphorus Magnesium Total Bilirubin AST ALT Alkaline Phosphatase Total Protein Albumin Triglycerides Arterial Blood Glucose 177 H Arterial Blood Ionized Calcium Digoxin Crossmatch 01/01/21 01/01/21 01/01/21 07:31 07:31 11:31 WBC 26.1 H RBC 2.95 L Hgb 8.6 L Hct 27.1 L MCV MCHC RDW 18.2 H Plt Count Lymph % (Auto) [place] % (Auto) Lymph # (Auto) [place] # (Auto) Seg Neutrophils % Seg Neuts % (Manual) 96.0 H Lymphocytes % (Manual) 4.0 L Monocytes % (Manual) Seg Neutrophils # Seg Neutrophils # Man 25.1 H Lymphocytes # (Manual) 1.0 L Monocytes # (Manual) PT INR ABG pH POC ABG pCO2 POC ABG pO2 ABG pO2 ABG HCO3 ABG O2 Saturation ABG Base Excess ABG Hemoglobin ABG Oxyhemoglobin ABG Sodium ABG Potassium ABG Chloride ABG Glucose Oxyhemoglobin Sodium Potassium 6.0 H Chloride Carbon Dioxide 21 L BUN 89 H Creatinine 10.5 H Glucose 179 H POC Glucose Lactic Acid Calcium Phosphorus Magnesium Total Bilirubin AST ALT Alkaline Phosphatase Total Protein Albumin Triglycerides Arterial Blood Glucose Arterial Blood Ionized Calcium Digoxin Crossmatch See Detail 01/01/21 01/01/21 01/01/21 11:51 12:45 16:52 WBC RBC Hgb Hct MCV MCHC RDW Plt Count Lymph % (Auto) [place] % (Auto) Lymph # (Auto) [place] # (Auto) Seg Neutrophils % Seg Neuts % (Manual) Lymphocytes % (Manual) Monocytes % (Manual) Seg Neutrophils # Seg Neutrophils # Man Lymphocytes # (Manual) Monocytes # (Manual) PT 16.9 H INR 1.39 H ABG pH POC ABG pCO2 POC ABG pO2 ABG pO2 ABG HCO3 ABG O2 Saturation ABG Base Excess ABG Hemoglobin ABG Oxyhemoglobin ABG Sodium ABG Potassium ABG Chloride ABG Glucose Oxyhemoglobin Sodium Potassium Chloride Carbon Dioxide BUN Creatinine Glucose POC Glucose 157 H 177 H Lactic Acid Calcium Phosphorus Magnesium Total Bilirubin AST ALT Alkaline Phosphatase Total Protein Albumin Triglycerides Arterial Blood Glucose Arterial Blood Ionized Calcium Digoxin Crossmatch 01/01/21 01/01/21 01/01/21 17:58 17:58 20:12 WBC 26.9 H RBC 3.14 L Hgb 9.3 L Hct 29.6 L MCV MCHC RDW 17.5 H Plt Count Lymph % (Auto) [place] % (Auto) Lymph # (Auto) [place] # (Auto) Seg Neutrophils % Seg Neuts % (Manual) 84.0 H Lymphocytes % (Manual) 4.0 L Monocytes % (Manual) 12.0 H Seg Neutrophils # Seg Neutrophils # Man 22.6 H Lymphocytes # (Manual) 1.1 L Monocytes # (Manual) 3.2 H PT INR ABG pH POC ABG pCO2 POC ABG pO2 ABG pO2 ABG HCO3 ABG O2 Saturation ABG Base Excess ABG Hemoglobin ABG Oxyhemoglobin ABG Sodium ABG Potassium ABG Chloride ABG Glucose Oxyhemoglobin Sodium 136 L Potassium 6.2 H* Chloride Carbon Dioxide 21 L BUN 92 H Creatinine 10.8 H Glucose 171 H POC Glucose 288 H Lactic Acid Calcium Phosphorus Magnesium Total Bilirubin 2.10 H AST 223 H ALT 100 H Alkaline Phosphatase 206 H Total Protein 4.8 L Albumin 1.9 L Triglycerides Arterial Blood Glucose Arterial Blood Ionized Calcium Digoxin Crossmatch 01/02/21 01/02/21 01/02/21 00:12 00:45 03:05 WBC RBC Hgb Hct MCV MCHC RDW Plt Count Lymph % (Auto) [place] % (Auto) Lymph # (Auto) [place] # (Auto) Seg Neutrophils % Seg Neuts % (Manual) Lymphocytes % (Manual) Monocytes % (Manual) Seg Neutrophils # Seg Neutrophils # Man Lymphocytes # (Manual) Monocytes # (Manual) PT INR ABG pH POC ABG pCO2 POC ABG pO2 81.8 L ABG pO2 ABG HCO3 ABG O2 Saturation ABG Base Excess ABG Hemoglobin 8.0 L ABG Oxyhemoglobin ABG Sodium 129.8 L ABG Potassium 5.4 H ABG Chloride ABG Glucose 257 H Oxyhemoglobin Sodium 136 L Potassium 5.8 H Chloride 96.6 L Carbon Dioxide BUN 95 H Creatinine 11.2 H Glucose 238 H POC Glucose 223 H Lactic Acid Calcium Phosphorus Magnesium Total Bilirubin AST ALT Alkaline Phosphatase Total Protein Albumin Triglycerides Arterial Blood Glucose 257 H Arterial Blood Ionized Calcium 4.0 L Digoxin Crossmatch 01/02/21 01/02/21 01/02/21 06:25 08:00 08:00 WBC 17.5 H RBC 2.31 L Hgb 6.7 L Hct 22.1 L D MCV 96 H MCHC 30 L RDW 18.4 H Plt Count Lymph % (Auto) [place] % (Auto) Lymph # (Auto) [place] # (Auto) Seg Neutrophils % Seg Neuts % (Manual) Lymphocytes % (Manual) Monocytes % (Manual) Seg Neutrophils # Seg Neutrophils # Man Lymphocytes # (Manual) Monocytes # (Manual) PT INR ABG pH POC ABG pCO2 POC ABG pO2 ABG pO2 ABG HCO3 ABG O2 Saturation ABG Base Excess ABG Hemoglobin ABG Oxyhemoglobin ABG Sodium ABG Potassium ABG Chloride ABG Glucose Oxyhemoglobin Sodium 134 L Potassium 5.3 H Chloride 92.9 L Carbon Dioxide BUN 101 H Creatinine 10.9 H Glucose 560 H* POC Glucose 239 H Lactic Acid Calcium 7.6 L Phosphorus 6.50 H Magnesium Total Bilirubin AST ALT Alkaline Phosphatase Total Protein Albumin Triglycerides Arterial Blood Glucose Arterial Blood Ionized Calcium Digoxin Crossmatch 01/02/21 01/02/21 01/02/21 11:26 15:00 17:57 WBC RBC Hgb Hct MCV MCHC RDW Plt Count Lymph % (Auto) [place] % (Auto) Lymph # (Auto) [place] # (Auto) Seg Neutrophils % Seg Neuts % (Manual) Lymphocytes % (Manual) Monocytes % (Manual) Seg Neutrophils # Seg Neutrophils # Man Lymphocytes # (Manual) Monocytes # (Manual) PT INR ABG pH POC ABG pCO2 POC ABG pO2 ABG pO2 ABG HCO3 ABG O2 Saturation ABG Base Excess ABG Hemoglobin ABG Oxyhemoglobin ABG Sodium ABG Potassium ABG Chloride ABG Glucose Oxyhemoglobin Sodium Potassium Chloride Carbon Dioxide BUN Creatinine Glucose 241 H POC Glucose 205 H 272 H Lactic Acid Calcium Phosphorus Magnesium Total Bilirubin AST ALT Alkaline Phosphatase Total Protein Albumin Triglycerides Arterial Blood Glucose Arterial Blood Ionized Calcium Digoxin Crossmatch 01/02/21 01/02/21 01/03/21 23:25 23:43 03:45 WBC RBC Hgb Hct MCV MCHC RDW Plt Count Lymph % (Auto) [place] % (Auto) Lymph # (Auto) [place] # (Auto) Seg Neutrophils % Seg Neuts % (Manual) Lymphocytes % (Manual) Monocytes % (Manual) Seg Neutrophils # Seg Neutrophils # Man Lymphocytes # (Manual) Monocytes # (Manual) PT INR ABG pH POC ABG pCO2 48.3 H POC ABG pO2 134.4 H 79.7 L ABG pO2 ABG HCO3 ABG O2 Saturation ABG Base Excess ABG Hemoglobin 7.7 L 8.6 L ABG Oxyhemoglobin ABG Sodium 131.8 L 130.4 L ABG Potassium ABG Chloride 97.0 L ABG Glucose 218 H 238 H Oxyhemoglobin Sodium Potassium Chloride Carbon Dioxide BUN Creatinine Glucose POC Glucose 218 H Lactic Acid Calcium Phosphorus Magnesium Total Bilirubin AST ALT Alkaline Phosphatase Total Protein Albumin Triglycerides Arterial Blood Glucose 218 H 238 H Arterial Blood Ionized Calcium 4.1 L 4.0 L Digoxin Crossmatch 01/03/21 01/03/21 01/03/21 04:37 04:37 05:39 WBC 15.2 H RBC 2.38 L Hgb 7.3 L Hct 21.6 L MCV MCHC RDW 16.6 H Plt Count Lymph % (Auto) [place] % (Auto) Lymph # (Auto) [place] # (Auto) Seg Neutrophils % Seg Neuts % (Manual) Lymphocytes % (Manual) Monocytes % (Manual) Seg Neutrophils # Seg Neutrophils # Man Lymphocytes # (Manual) Monocytes # (Manual) PT INR ABG pH POC ABG pCO2 POC ABG pO2 ABG pO2 ABG HCO3 ABG O2 Saturation ABG Base Excess ABG Hemoglobin ABG Oxyhemoglobin ABG Sodium ABG Potassium ABG Chloride ABG Glucose Oxyhemoglobin Sodium 136 L Potassium Chloride 94.5 L Carbon Dioxide BUN 69 H Creatinine 8.0 H Glucose 219 H POC Glucose 222 H Lactic Acid Calcium 7.8 L Phosphorus 4.80 H D Magnesium Total Bilirubin AST ALT Alkaline Phosphatase Total Protein Albumin Triglycerides Arterial Blood Glucose Arterial Blood Ionized Calcium Digoxin Crossmatch 01/03/21 01/03/21 01/03/21 11:29 18:49 23:37 WBC RBC Hgb Hct MCV MCHC RDW Plt Count Lymph % (Auto) [place] % (Auto) Lymph # (Auto) [place] # (Auto) Seg Neutrophils % Seg Neuts % (Manual) Lymphocytes % (Manual) Monocytes % (Manual) Seg Neutrophils # Seg Neutrophils # Man Lymphocytes # (Manual) Monocytes # (Manual) PT INR ABG pH POC ABG pCO2 POC ABG pO2 ABG pO2 ABG HCO3 ABG O2 Saturation ABG Base Excess ABG Hemoglobin ABG Oxyhemoglobin ABG Sodium ABG Potassium ABG Chloride ABG Glucose Oxyhemoglobin Sodium Potassium Chloride Carbon Dioxide BUN Creatinine Glucose POC Glucose 232 H 129 H 140 H Lactic Acid Calcium Phosphorus Magnesium Total Bilirubin AST ALT Alkaline Phosphatase Total Protein Albumin Triglycerides Arterial Blood Glucose Arterial Blood Ionized Calcium Digoxin Crossmatch 01/04/21 01/04/21 01/04/21 03:22 04:38 04:38 WBC 11.1 H RBC 2.89 L Hgb 8.9 L Hct 26.2 L MCV MCHC RDW 16.1 H Plt Count Lymph % (Auto) [place] % (Auto) Lymph # (Auto) [place] # (Auto) Seg Neutrophils % Seg Neuts % (Manual) Lymphocytes % (Manual) Monocytes % (Manual) Seg Neutrophils # Seg Neutrophils # Man Lymphocytes # (Manual) Monocytes # (Manual) PT INR ABG pH POC ABG pCO2 POC ABG pO2 82.3 L ABG pO2 ABG HCO3 ABG O2 Saturation ABG Base Excess ABG Hemoglobin 8.9 L ABG Oxyhemoglobin ABG Sodium 130.5 L ABG Potassium ABG Chloride ABG Glucose 124 H Oxyhemoglobin Sodium Potassium Chloride 95.5 L Carbon Dioxide BUN 87 H Creatinine 9.7 H Glucose 118 H POC Glucose Lactic Acid Calcium 7.7 L Phosphorus Magnesium Total Bilirubin AST ALT Alkaline Phosphatase Total Protein Albumin Triglycerides Arterial Blood Glucose 124 H Arterial Blood Ionized Calcium 3.5 L Digoxin Crossmatch 01/04/21 01/04/21 01/04/21 05:39 12:04 18:04 WBC RBC Hgb Hct MCV MCHC RDW Plt Count Lymph % (Auto) [place] % (Auto) Lymph # (Auto) [place] # (Auto) Seg Neutrophils % Seg Neuts % (Manual) Lymphocytes % (Manual) Monocytes % (Manual) Seg Neutrophils # Seg Neutrophils # Man Lymphocytes # (Manual) Monocytes # (Manual) PT INR ABG pH POC ABG pCO2 POC ABG pO2 ABG pO2 ABG HCO3 ABG O2 Saturation ABG Base Excess ABG Hemoglobin ABG Oxyhemoglobin ABG Sodium ABG Potassium ABG Chloride ABG Glucose Oxyhemoglobin Sodium Potassium Chloride Carbon Dioxide BUN Creatinine Glucose POC Glucose 134 H 125 H 131 H Lactic Acid Calcium Phosphorus Magnesium Total Bilirubin AST ALT Alkaline Phosphatase Total Protein Albumin Triglycerides Arterial Blood Glucose Arterial Blood Ionized Calcium Digoxin Crossmatch 01/04/21 01/05/21 01/05/21 23:41 03:23 04:49 WBC RBC Hgb Hct MCV MCHC RDW Plt Count Lymph % (Auto) [place] % (Auto) Lymph # (Auto) [place] # (Auto) Seg Neutrophils % Seg Neuts % (Manual) Lymphocytes % (Manual) Monocytes % (Manual) Seg Neutrophils # Seg Neutrophils # Man Lymphocytes # (Manual) Monocytes # (Manual) PT INR ABG pH POC ABG pCO2 POC ABG pO2 62.8 L ABG pO2 ABG HCO3 ABG O2 Saturation ABG Base Excess ABG Hemoglobin 9.5 L ABG Oxyhemoglobin 92.0 L ABG Sodium 130.1 L ABG Potassium ABG Chloride ABG Glucose 148 H Oxyhemoglobin Sodium Potassium Chloride 96.9 L Carbon Dioxide BUN 57 H Creatinine 6.7 H Glucose 135 H POC Glucose 132 H Lactic Acid Calcium 8.0 L Phosphorus Magnesium Total Bilirubin AST ALT Alkaline Phosphatase Total Protein Albumin Triglycerides Arterial Blood Glucose 148 H Arterial Blood Ionized Calcium 4.1 L Digoxin Crossmatch 01/05/21 01/05/21 01/05/21 05:04 11:48 12:39 WBC RBC 3.03 L Hgb 9.3 L Hct 27.6 L MCV MCHC RDW 16.5 H Plt Count Lymph % (Auto) [place] % (Auto) Lymph # (Auto) [place] # (Auto) Seg Neutrophils % Seg Neuts % (Manual) Lymphocytes % (Manual) Monocytes % (Manual) Seg Neutrophils # Seg Neutrophils # Man Lymphocytes # (Manual) Monocytes # (Manual) PT INR ABG pH POC ABG pCO2 POC ABG pO2 ABG pO2 ABG HCO3 ABG O2 Saturation ABG Base Excess ABG Hemoglobin ABG Oxyhemoglobin ABG Sodium ABG Potassium ABG Chloride ABG Glucose Oxyhemoglobin Sodium Potassium Chloride Carbon Dioxide BUN Creatinine Glucose POC Glucose 147 H 162 H Lactic Acid Calcium Phosphorus Magnesium Total Bilirubin AST ALT Alkaline Phosphatase Total Protein Albumin Triglycerides Arterial Blood Glucose Arterial Blood Ionized Calcium Digoxin Crossmatch 01/05/21 01/05/21 01/06/21 17:50 23:32 04:15 WBC RBC Hgb Hct MCV MCHC RDW Plt Count Lymph % (Auto) [place] % (Auto) Lymph # (Auto) [place] # (Auto) Seg Neutrophils % Seg Neuts % (Manual) Lymphocytes % (Manual) Monocytes % (Manual) Seg Neutrophils # Seg Neutrophils # Man Lymphocytes # (Manual) Monocytes # (Manual) PT INR ABG pH POC ABG pCO2 POC ABG pO2 ABG pO2 191.0 H ABG HCO3 ABG O2 Saturation 99.2 H ABG Base Excess ABG Hemoglobin 9.0 L ABG Oxyhemoglobin ABG Sodium ABG Potassium ABG Chloride ABG Glucose Oxyhemoglobin Sodium Potassium Chloride Carbon Dioxide BUN Creatinine Glucose POC Glucose 155 H 115 H Lactic Acid Calcium Phosphorus Magnesium Total Bilirubin AST ALT Alkaline Phosphatase Total Protein Albumin Triglycerides Arterial Blood Glucose Arterial Blood Ionized Calcium Digoxin Crossmatch 01/06/21 01/06/21 01/06/21 04:45 05:56 07:03 WBC RBC 2.95 L Hgb 9.1 L Hct 26.8 L MCV MCHC RDW 16.8 H Plt Count Lymph % (Auto) [place] % (Auto) Lymph # (Auto) [place] # (Auto) Seg Neutrophils % Seg Neuts % (Manual) Lymphocytes % (Manual) Monocytes % (Manual) Seg Neutrophils # Seg Neutrophils # Man Lymphocytes # (Manual) Monocytes # (Manual) PT INR ABG pH POC ABG pCO2 POC ABG pO2 ABG pO2 ABG HCO3 ABG O2 Saturation ABG Base Excess ABG Hemoglobin ABG Oxyhemoglobin ABG Sodium ABG Potassium ABG Chloride ABG Glucose Oxyhemoglobin Sodium 135 L Potassium Chloride 95.9 L Carbon Dioxide BUN 82 H Creatinine 8.7 H Glucose 127 H POC Glucose 136 H Lactic Acid Calcium 8.3 L Phosphorus Magnesium Total Bilirubin AST ALT Alkaline Phosphatase Total Protein Albumin Triglycerides Arterial Blood Glucose Arterial Blood Ionized Calcium Digoxin Crossmatch 01/06/21 01/06/21 01/06/21 07:10 11:04 13:38 WBC RBC Hgb Hct MCV MCHC RDW Plt Count Lymph % (Auto) [place] % (Auto) Lymph # (Auto) [place] # (Auto) Seg Neutrophils % Seg Neuts % (Manual) Lymphocytes % (Manual) Monocytes % (Manual) Seg Neutrophils # Seg Neutrophils # Man Lymphocytes # (Manual) Monocytes # (Manual) PT INR ABG pH POC ABG pCO2 POC ABG pO2 ABG pO2 ABG HCO3 ABG O2 Saturation ABG Base Excess ABG Hemoglobin ABG Oxyhemoglobin ABG Sodium ABG Potassium ABG Chloride ABG Glucose Oxyhemoglobin Sodium Potassium Chloride Carbon Dioxide BUN Creatinine Glucose POC Glucose 178 H 155 H Lactic Acid Calcium Phosphorus Magnesium Total Bilirubin AST ALT Alkaline Phosphatase Total Protein Albumin Triglycerides Arterial Blood Glucose Arterial Blood Ionized Calcium Digoxin Crossmatch See Detail 01/06/21 01/06/21 01/07/21 17:35 22:21 03:07 WBC RBC Hgb Hct MCV MCHC RDW Plt Count Lymph % (Auto) [place] % (Auto) Lymph # (Auto) [place] # (Auto) Seg Neutrophils % Seg Neuts % (Manual) Lymphocytes % (Manual) Monocytes % (Manual) Seg Neutrophils # Seg Neutrophils # Man Lymphocytes # (Manual) Monocytes # (Manual) PT INR ABG pH POC ABG pCO2 POC ABG pO2 ABG pO2 ABG HCO3 ABG O2 Saturation ABG Base Excess ABG Hemoglobin 11.9 L ABG Oxyhemoglobin ABG Sodium 135.6 L ABG Potassium ABG Chloride ABG Glucose 181 H Oxyhemoglobin Sodium Potassium Chloride Carbon Dioxide BUN Creatinine Glucose POC Glucose 138 H 202 H Lactic Acid Calcium Phosphorus Magnesium Total Bilirubin AST ALT Alkaline Phosphatase Total Protein Albumin Triglycerides Arterial Blood Glucose 181 H Arterial Blood Ionized Calcium 4.3 L Digoxin Crossmatch 01/07/21 01/07/21 01/07/21 04:50 05:21 08:37 WBC 12.4 H RBC Hgb 11.1 L Hct 33.3 L D MCV MCHC RDW 17.0 H Plt Count Lymph % (Auto) 3.2 L [place] % (Auto) 9.4 H Lymph # (Auto) 0.4 L [place] # (Auto) 1.2 H Seg Neutrophils % 86.6 H Seg Neuts % (Manual) Lymphocytes % (Manual) Monocytes % (Manual) Seg Neutrophils # 10.7 H Seg Neutrophils # Man Lymphocytes # (Manual) Monocytes # (Manual) PT INR ABG pH POC ABG pCO2 POC ABG pO2 ABG pO2 ABG HCO3 ABG O2 Saturation ABG Base Excess ABG Hemoglobin ABG Oxyhemoglobin ABG Sodium ABG Potassium ABG Chloride ABG Glucose Oxyhemoglobin Sodium Potassium Chloride Carbon Dioxide BUN 60 H Creatinine 6.3 H Glucose 154 H POC Glucose 177 H Lactic Acid Calcium 8.3 L Phosphorus Magnesium Total Bilirubin AST ALT Alkaline Phosphatase Total Protein Albumin Triglycerides Arterial Blood Glucose Arterial Blood Ionized Calcium Digoxin Crossmatch 01/07/21 01/07/21 01/07/21 11:21 12:19 17:11 WBC RBC Hgb Hct MCV MCHC RDW Plt Count Lymph % (Auto) [place] % (Auto) Lymph # (Auto) [place] # (Auto) Seg Neutrophils % Seg Neuts % (Manual) Lymphocytes % (Manual) Monocytes % (Manual) Seg Neutrophils # Seg Neutrophils # Man Lymphocytes # (Manual) Monocytes # (Manual) PT INR ABG pH POC ABG pCO2 POC ABG pO2 ABG pO2 ABG HCO3 ABG O2 Saturation ABG Base Excess ABG Hemoglobin ABG Oxyhemoglobin ABG Sodium ABG Potassium ABG Chloride ABG Glucose Oxyhemoglobin Sodium Potassium Chloride Carbon Dioxide BUN Creatinine Glucose POC Glucose 144 H 137 H 119 H Lactic Acid Calcium Phosphorus Magnesium Total Bilirubin AST ALT Alkaline Phosphatase Total Protein Albumin Triglycerides Arterial Blood Glucose Arterial Blood Ionized Calcium Digoxin Crossmatch 01/07/21 01/07/21 01/08/21 17:14 23:39 04:34 WBC RBC Hgb Hct MCV MCHC RDW Plt Count Lymph % (Auto) [place] % (Auto) Lymph # (Auto) [place] # (Auto) Seg Neutrophils % Seg Neuts % (Manual) Lymphocytes % (Manual) Monocytes % (Manual) Seg Neutrophils # Seg Neutrophils # Man Lymphocytes # (Manual) Monocytes # (Manual) PT INR ABG pH 7.345 L POC ABG pCO2 POC ABG pO2 ABG pO2 67.4 L ABG HCO3 ABG O2 Saturation 94.3 L ABG Base Excess -3.9 L ABG Hemoglobin 8.9 L ABG Oxyhemoglobin ABG Sodium ABG Potassium ABG Chloride ABG Glucose Oxyhemoglobin 92.3 L Sodium Potassium Chloride Carbon Dioxide 20 L BUN 93 H Creatinine 8.8 H Glucose 120 H POC Glucose 129 H Lactic Acid Calcium Phosphorus Magnesium Total Bilirubin AST ALT Alkaline Phosphatase 133 H Total Protein 5.4 L Albumin 1.9 L Triglycerides Arterial Blood Glucose Arterial Blood Ionized Calcium Digoxin Crossmatch 01/08/21 01/08/21 01/08/21 05:26 11:38 17:19 WBC RBC Hgb Hct MCV MCHC RDW Plt Count Lymph % (Auto) [place] % (Auto) Lymph # (Auto) [place] # (Auto) Seg Neutrophils % Seg Neuts % (Manual) Lymphocytes % (Manual) Monocytes % (Manual) Seg Neutrophils # Seg Neutrophils # Man Lymphocytes # (Manual) Monocytes # (Manual) PT INR ABG pH POC ABG pCO2 POC ABG pO2 ABG pO2 ABG HCO3 ABG O2 Saturation ABG Base Excess ABG Hemoglobin ABG Oxyhemoglobin ABG Sodium ABG Potassium ABG Chloride ABG Glucose Oxyhemoglobin Sodium Potassium Chloride Carbon Dioxide BUN Creatinine Glucose POC Glucose 125 H 146 H 136 H Lactic Acid Calcium Phosphorus Magnesium Total Bilirubin AST ALT Alkaline Phosphatase Total Protein Albumin Triglycerides Arterial Blood Glucose Arterial Blood Ionized Calcium Digoxin Crossmatch 01/08/21 01/09/21 01/09/21 23:52 05:13 05:21 WBC RBC Hgb Hct MCV MCHC RDW Plt Count Lymph % (Auto) [place] % (Auto) Lymph # (Auto) [place] # (Auto) Seg Neutrophils % Seg Neuts % (Manual) Lymphocytes % (Manual) Monocytes % (Manual) Seg Neutrophils # Seg Neutrophils # Man Lymphocytes # (Manual) Monocytes # (Manual) PT INR ABG pH POC ABG pCO2 POC ABG pO2 ABG pO2 ABG HCO3 ABG O2 Saturation ABG Base Excess ABG Hemoglobin ABG Oxyhemoglobin ABG Sodium ABG Potassium ABG Chloride ABG Glucose Oxyhemoglobin Sodium Potassium Chloride Carbon Dioxide 16 L BUN 123 H Creatinine 10.8 H Glucose 145 H POC Glucose 143 H 144 H Lactic Acid Calcium Phosphorus 5.00 H D Magnesium 2.40 H Total Bilirubin AST ALT Alkaline Phosphatase Total Protein Albumin Triglycerides Arterial Blood Glucose Arterial Blood Ionized Calcium Digoxin Crossmatch 01/09/21 01/09/21 01/09/21 12:08 17:20 23:56 WBC RBC Hgb Hct MCV MCHC RDW Plt Count Lymph % (Auto) [place] % (Auto) Lymph # (Auto) [place] # (Auto) Seg Neutrophils % Seg Neuts % (Manual) Lymphocytes % (Manual) Monocytes % (Manual) Seg Neutrophils # Seg Neutrophils # Man Lymphocytes # (Manual) Monocytes # (Manual) PT INR ABG pH POC ABG pCO2 POC ABG pO2 ABG pO2 ABG HCO3 ABG O2 Saturation ABG Base Excess ABG Hemoglobin ABG Oxyhemoglobin ABG Sodium ABG Potassium ABG Chloride ABG Glucose Oxyhemoglobin Sodium Potassium Chloride Carbon Dioxide BUN Creatinine Glucose POC Glucose 153 H 160 H 158 H Lactic Acid Calcium Phosphorus Magnesium Total Bilirubin AST ALT Alkaline Phosphatase Total Protein Albumin Triglycerides Arterial Blood Glucose Arterial Blood Ionized Calcium Digoxin Crossmatch 01/10/21 01/10/21 01/10/21 04:52 05:44 07:41 WBC RBC Hgb Hct MCV MCHC RDW Plt Count Lymph % (Auto) [place] % (Auto) Lymph # (Auto) [place] # (Auto) Seg Neutrophils % Seg Neuts % (Manual) Lymphocytes % (Manual) Monocytes % (Manual) Seg Neutrophils # Seg Neutrophils # Man Lymphocytes # (Manual) Monocytes # (Manual) PT INR ABG pH POC ABG pCO2 POC ABG pO2 ABG pO2 ABG HCO3 ABG O2 Saturation ABG Base Excess ABG Hemoglobin ABG Oxyhemoglobin ABG Sodium ABG Potassium ABG Chloride ABG Glucose Oxyhemoglobin Sodium 135 L Potassium 3.5 L D Chloride 95.0 L Carbon Dioxide 21 L BUN 93 H Creatinine 8.3 H Glucose 127 H POC Glucose 135 H 157 H Lactic Acid Calcium Phosphorus Magnesium Total Bilirubin AST ALT Alkaline Phosphatase Total Protein Albumin Triglycerides Arterial Blood Glucose Arterial Blood Ionized Calcium Digoxin Crossmatch 01/10/21 01/10/21 01/10/21 09:26 12:03 17:44 WBC 18.2 H RBC 3.14 L Hgb 9.7 L Hct 28.2 L MCV MCHC RDW 16.5 H Plt Count Lymph % (Auto) [place] % (Auto) Lymph # (Auto) [place] # (Auto) Seg Neutrophils % Seg Neuts % (Manual) 95.0 H Lymphocytes % (Manual) 3.0 L Monocytes % (Manual) Seg Neutrophils # Seg Neutrophils # Man 17.3 H Lymphocytes # (Manual) 0.5 L Monocytes # (Manual) PT INR ABG pH POC ABG pCO2 POC ABG pO2 ABG pO2 ABG HCO3 ABG O2 Saturation ABG Base Excess ABG Hemoglobin ABG Oxyhemoglobin ABG Sodium ABG Potassium ABG Chloride ABG Glucose Oxyhemoglobin Sodium Potassium Chloride Carbon Dioxide BUN Creatinine Glucose POC Glucose 163 H 171 H Lactic Acid Calcium Phosphorus Magnesium Total Bilirubin AST ALT Alkaline Phosphatase Total Protein Albumin Triglycerides Arterial Blood Glucose Arterial Blood Ionized Calcium Digoxin Crossmatch 01/10/21 01/11/21 01/11/21 23:50 05:18 05:18 WBC RBC Hgb Hct MCV MCHC RDW Plt Count Lymph % (Auto) [place] % (Auto) Lymph # (Auto) [place] # (Auto) Seg Neutrophils % Seg Neuts % (Manual) Lymphocytes % (Manual) Monocytes % (Manual) Seg Neutrophils # Seg Neutrophils # Man Lymphocytes # (Manual) Monocytes # (Manual) PT INR ABG pH POC ABG pCO2 POC ABG pO2 ABG pO2 ABG HCO3 ABG O2 Saturation ABG Base Excess ABG Hemoglobin ABG Oxyhemoglobin ABG Sodium ABG Potassium ABG Chloride ABG Glucose Oxyhemoglobin Sodium 136 L Potassium Chloride 94.6 L Carbon Dioxide 19 L BUN 145 H Creatinine 10.6 H Glucose 152 H POC Glucose 151 H Lactic Acid Calcium Phosphorus 6.00 H D Magnesium Total Bilirubin AST ALT Alkaline Phosphatase Total Protein Albumin Triglycerides Arterial Blood Glucose Arterial Blood Ionized Calcium Digoxin 0.8 L Crossmatch 01/11/21 01/11/21 01/11/21 05:18 05:19 11:28 WBC 17.4 H RBC 3.34 L Hgb 10.2 L Hct 29.7 L MCV MCHC RDW 15.9 H Plt Count Lymph % (Auto) [place] % (Auto) Lymph # (Auto) [place] # (Auto) Seg Neutrophils % Seg Neuts % (Manual) Lymphocytes % (Manual) Monocytes % (Manual) Seg Neutrophils # Seg Neutrophils # Man Lymphocytes # (Manual) Monocytes # (Manual) PT INR ABG pH POC ABG pCO2 POC ABG pO2 ABG pO2 ABG HCO3 ABG O2 Saturation ABG Base Excess ABG Hemoglobin ABG Oxyhemoglobin ABG Sodium ABG Potassium ABG Chloride ABG Glucose Oxyhemoglobin Sodium Potassium Chloride Carbon Dioxide BUN Creatinine Glucose POC Glucose 149 H 178 H Lactic Acid Calcium Phosphorus Magnesium Total Bilirubin AST ALT Alkaline Phosphatase Total Protein Albumin Triglycerides Arterial Blood Glucose Arterial Blood Ionized Calcium Digoxin Crossmatch 01/11/21 01/11/21 01/12/21 17:31 23:14 05:18 WBC RBC Hgb Hct MCV MCHC RDW Plt Count Lymph % (Auto) [place] % (Auto) Lymph # (Auto) [place] # (Auto) Seg Neutrophils % Seg Neuts % (Manual) Lymphocytes % (Manual) Monocytes % (Manual) Seg Neutrophils # Seg Neutrophils # Man Lymphocytes # (Manual) Monocytes # (Manual) PT INR ABG pH POC ABG pCO2 POC ABG pO2 ABG pO2 ABG HCO3 ABG O2 Saturation ABG Base Excess ABG Hemoglobin ABG Oxyhemoglobin ABG Sodium ABG Potassium ABG Chloride ABG Glucose Oxyhemoglobin Sodium Potassium Chloride Carbon Dioxide BUN Creatinine Glucose POC Glucose 158 H 145 H 148 H Lactic Acid Calcium Phosphorus Magnesium Total Bilirubin AST ALT Alkaline Phosphatase Total Protein Albumin Triglycerides Arterial Blood Glucose Arterial Blood Ionized Calcium Digoxin Crossmatch 01/12/21 01/12/21 01/12/21 06:50 10:45 13:34 WBC RBC Hgb Hct MCV MCHC RDW Plt Count Lymph % (Auto) [place] % (Auto) Lymph # (Auto) [place] # (Auto) Seg Neutrophils % Seg Neuts % (Manual) Lymphocytes % (Manual) Monocytes % (Manual) Seg Neutrophils # Seg Neutrophils # Man Lymphocytes # (Manual) Monocytes # (Manual) PT INR ABG pH POC ABG pCO2 POC ABG pO2 ABG pO2 ABG HCO3 ABG O2 Saturation ABG Base Excess ABG Hemoglobin ABG Oxyhemoglobin ABG Sodium ABG Potassium ABG Chloride ABG Glucose Oxyhemoglobin Sodium Potassium 2.9 L* D Chloride 94.8 L Carbon Dioxide BUN 102 H Creatinine 8.3 H Glucose 139 H POC Glucose 151 H 134 H Lactic Acid Calcium 8.1 L Phosphorus 5.00 H Magnesium Total Bilirubin AST ALT Alkaline Phosphatase Total Protein Albumin Triglycerides Arterial Blood Glucose Arterial Blood Ionized Calcium Digoxin Crossmatch 01/12/21 01/12/21 01/13/21 16:59 23:06 03:45 WBC RBC Hgb Hct MCV MCHC RDW Plt Count Lymph % (Auto) [place] % (Auto) Lymph # (Auto) [place] # (Auto) Seg Neutrophils % Seg Neuts % (Manual) Lymphocytes % (Manual) Monocytes % (Manual) Seg Neutrophils # Seg Neutrophils # Man Lymphocytes # (Manual) Monocytes # (Manual) PT INR ABG pH POC ABG pCO2 POC ABG pO2 ABG pO2 ABG HCO3 ABG O2 Saturation ABG Base Excess ABG Hemoglobin ABG Oxyhemoglobin ABG Sodium ABG Potassium ABG Chloride ABG Glucose Oxyhemoglobin Sodium 136 L Potassium 3.4 L Chloride 92.6 L Carbon Dioxide BUN 134 H Creatinine 10.4 H Glucose 126 H POC Glucose 108 H 135 H Lactic Acid Calcium 8.3 L Phosphorus 5.60 H Magnesium 1.50 L Total Bilirubin AST ALT Alkaline Phosphatase Total Protein Albumin Triglycerides Arterial Blood Glucose Arterial Blood Ionized Calcium Digoxin Crossmatch 01/13/21 01/13/21 01/13/21 03:45 05:55 11:59 WBC 17.6 H RBC 3.33 L Hgb 10.2 L Hct 29.5 L MCV MCHC 35 H RDW 15.5 H Plt Count Lymph % (Auto) 4.4 L [place] % (Auto) 10.3 H Lymph # (Auto) 0.8 L [place] # (Auto) 1.8 H Seg Neutrophils % 84.2 H Seg Neuts % (Manual) Lymphocytes % (Manual) Monocytes % (Manual) Seg Neutrophils # 14.8 H Seg Neutrophils # Man Lymphocytes # (Manual) Monocytes # (Manual) PT INR ABG pH POC ABG pCO2 POC ABG pO2 ABG pO2 ABG HCO3 ABG O2 Saturation ABG Base Excess ABG Hemoglobin ABG Oxyhemoglobin ABG Sodium ABG Potassium ABG Chloride ABG Glucose Oxyhemoglobin Sodium Potassium Chloride Carbon Dioxide BUN Creatinine Glucose POC Glucose 134 H 141 H Lactic Acid Calcium Phosphorus Magnesium Total Bilirubin AST ALT Alkaline Phosphatase Total Protein Albumin Triglycerides Arterial Blood Glucose Arterial Blood Ionized Calcium Digoxin Crossmatch 01/13/21 01/14/21 01/14/21 23:09 05:39 05:57 WBC RBC Hgb Hct MCV MCHC RDW Plt Count Lymph % (Auto) [place] % (Auto) Lymph # (Auto) [place] # (Auto) Seg Neutrophils % Seg Neuts % (Manual) Lymphocytes % (Manual) Monocytes % (Manual) Seg Neutrophils # Seg Neutrophils # Man Lymphocytes # (Manual) Monocytes # (Manual) PT INR ABG pH POC ABG pCO2 POC ABG pO2 ABG pO2 ABG HCO3 ABG O2 Saturation ABG Base Excess ABG Hemoglobin ABG Oxyhemoglobin ABG Sodium ABG Potassium ABG Chloride ABG Glucose Oxyhemoglobin Sodium Potassium Chloride 97.6 L Carbon Dioxide BUN 81 H Creatinine 7.6 H Glucose 193 H POC Glucose 106 H 190 H Lactic Acid Calcium 8.2 L Phosphorus 4.60 H Magnesium Total Bilirubin AST ALT Alkaline Phosphatase Total Protein Albumin Triglycerides Arterial Blood Glucose Arterial Blood Ionized Calcium Digoxin Crossmatch 01/14/21 01/14/21 01/14/21 10:00 16:56 16:59 WBC 17.0 H RBC 3.10 L Hgb 9.6 L Hct 27.4 L MCV MCHC 35 H RDW 15.6 H Plt Count Lymph % (Auto) [place] % (Auto) Lymph # (Auto) [place] # (Auto) Seg Neutrophils % Seg Neuts % (Manual) Lymphocytes % (Manual) Monocytes % (Manual) Seg Neutrophils # Seg Neutrophils # Man Lymphocytes # (Manual) Monocytes # (Manual) PT INR ABG pH POC ABG pCO2 POC ABG pO2 ABG pO2 ABG HCO3 ABG O2 Saturation ABG Base Excess ABG Hemoglobin ABG Oxyhemoglobin ABG Sodium ABG Potassium ABG Chloride ABG Glucose Oxyhemoglobin Sodium Potassium Chloride Carbon Dioxide BUN Creatinine Glucose POC Glucose 37 L 34 L Lactic Acid Calcium Phosphorus Magnesium Total Bilirubin AST ALT Alkaline Phosphatase Total Protein Albumin Triglycerides Arterial Blood Glucose Arterial Blood Ionized Calcium Digoxin Crossmatch 01/14/21 01/14/21 01/14/21 17:02 18:34 23:17 WBC RBC Hgb Hct MCV MCHC RDW Plt Count Lymph % (Auto) [place] % (Auto) Lymph # (Auto) [place] # (Auto) Seg Neutrophils % Seg Neuts % (Manual) Lymphocytes % (Manual) Monocytes % (Manual) Seg Neutrophils # Seg Neutrophils # Man Lymphocytes # (Manual) Monocytes # (Manual) PT INR ABG pH POC ABG pCO2 POC ABG pO2 ABG pO2 ABG HCO3 ABG O2 Saturation ABG Base Excess ABG Hemoglobin ABG Oxyhemoglobin ABG Sodium ABG Potassium ABG Chloride ABG Glucose Oxyhemoglobin Sodium Potassium Chloride Carbon Dioxide BUN Creatinine Glucose POC Glucose 35 L 143 H 53 L Lactic Acid Calcium Phosphorus Magnesium Total Bilirubin AST ALT Alkaline Phosphatase Total Protein Albumin Triglycerides Arterial Blood Glucose Arterial Blood Ionized Calcium Digoxin Crossmatch 01/15/21 01/15/21 01/15/21 00:34 04:00 04:00 WBC 15.9 H RBC 3.02 L Hgb 9.3 L Hct 27.3 L MCV MCHC RDW 15.6 H Plt Count Lymph % (Auto) [place] % (Auto) Lymph # (Auto) [place] # (Auto) Seg Neutrophils % Seg Neuts % (Manual) Lymphocytes % (Manual) Monocytes % (Manual) Seg Neutrophils # Seg Neutrophils # Man Lymphocytes # (Manual) Monocytes # (Manual) PT INR ABG pH POC ABG pCO2 POC ABG pO2 ABG pO2 ABG HCO3 ABG O2 Saturation ABG Base Excess ABG Hemoglobin ABG Oxyhemoglobin ABG Sodium ABG Potassium ABG Chloride ABG Glucose Oxyhemoglobin Sodium 136 L Potassium Chloride 94.3 L Carbon Dioxide BUN 117 H Creatinine 9.9 H Glucose 217 H POC Glucose 181 H Lactic Acid Calcium 8.3 L Phosphorus Magnesium Total Bilirubin AST ALT Alkaline Phosphatase Total Protein Albumin Triglycerides Arterial Blood Glucose Arterial Blood Ionized Calcium Digoxin Crossmatch 01/15/21 01/15/21 01/15/21 05:29 11:51 23:13 WBC RBC Hgb Hct MCV MCHC RDW Plt Count Lymph % (Auto) [place] % (Auto) Lymph # (Auto) [place] # (Auto) Seg Neutrophils % Seg Neuts % (Manual) Lymphocytes % (Manual) Monocytes % (Manual) Seg Neutrophils # Seg Neutrophils # Man Lymphocytes # (Manual) Monocytes # (Manual) PT INR ABG pH POC ABG pCO2 POC ABG pO2 ABG pO2 ABG HCO3 ABG O2 Saturation ABG Base Excess ABG Hemoglobin ABG Oxyhemoglobin ABG Sodium ABG Potassium ABG Chloride ABG Glucose Oxyhemoglobin Sodium Potassium Chloride Carbon Dioxide BUN Creatinine Glucose POC Glucose 221 H 62 L 154 H Lactic Acid Calcium Phosphorus Magnesium Total Bilirubin AST ALT Alkaline Phosphatase Total Protein Albumin Triglycerides Arterial Blood Glucose Arterial Blood Ionized Calcium Digoxin Crossmatch 01/16/21 01/16/21 01/16/21 05:04 06:44 06:44 WBC 14.8 H RBC 2.76 L Hgb 8.2 L Hct 24.8 L MCV MCHC RDW 15.6 H Plt Count Lymph % (Auto) [place] % (Auto) Lymph # (Auto) [place] # (Auto) Seg Neutrophils % Seg Neuts % (Manual) Lymphocytes % (Manual) Monocytes % (Manual) Seg Neutrophils # Seg Neutrophils # Man Lymphocytes # (Manual) Monocytes # (Manual) PT INR ABG pH POC ABG pCO2 POC ABG pO2 ABG pO2 ABG HCO3 ABG O2 Saturation ABG Base Excess ABG Hemoglobin ABG Oxyhemoglobin ABG Sodium ABG Potassium ABG Chloride ABG Glucose Oxyhemoglobin Sodium 133 L Potassium Chloride 92.3 L Carbon Dioxide 20 L BUN 160 H Creatinine 12.1 H Glucose 177 H POC Glucose 168 H Lactic Acid Calcium 8.1 L Phosphorus 5.50 H Magnesium 2.50 H Total Bilirubin AST ALT Alkaline Phosphatase Total Protein Albumin Triglycerides Arterial Blood Glucose Arterial Blood Ionized Calcium Digoxin Crossmatch Chest x-ray: report reviewed, image reviewed Additional Studies: CHEST - 1 VIEW 12/31/20 0734 hours INDICATION: Pneumonia COMPARISON: Yesterday FINDINGS: Support devices: Stable support device positioning. Heart: Stable mild cardiomegaly. Lungs/pleura: There is decreased inspiration compared to yesterday's exam. Hazy opacity in the right perihilar region and larger area of infiltration in the left lower lung appears stable given differences in the level of inspiration. No large pleural effusion or pneumothorax. Additional findings: None. IMPRESSION: Unchanged exam. Allied health notes reviewed: nursing
[2021-01-16] MEDS ORDERED: FAT EMULSIONS 20% 250 ML IV SCH (20:00)
[2021-01-16] MEDS ORDERED: TOTAL PARENTERAL NUTRITION 2,016 ML IV SCH (20:00)
[2021-01-16] MEDS: INSULIN GLARGINE 100 UNITS/ML SUB-Q SCH (21:44)
[2021-01-17] MEDS: hydrALAZINE 20 MG/1 ML INJ IV SCH ×6 (02:18→22:53)
[2021-01-17] MEDS: METOPROLOL TARTRATE 5 MG/5 ML INJ IV SCH ×6 (02:18→22:54)
[2021-01-17] MEDS: PIPERACIL-TAZO 2.25 GM/50 ML 2.25 GM/50 ML BAG IV SCH ×3 (04:07→22:51)
[2021-01-17] MEDS: INSULIN LISPRO 100 UNIT/ML SUB-Q SCH ×3 (06:05→17:29)
[2021-01-17 06:29] LABS: Hematocrit 24.6 % (35.5-45.6); Hemoglobin 8.5 gm/dl (11.8-15.2); Mean Corpuscular HGB Conc 35 % (32-34); Mean Corpuscular Volume 90 fl (84-94); Platelet Count 288 K/mm3 (140-440); Red Blood Count 2.75 M/mm3 (3.65-5.03); Red Cell Distribution Width 15.4 % (13.2-15.2)
--- NOTE | 2021-01-17 09:14 | Progress Note ---
Assessment and Plan Assessment and plan: This is a 60 YO Male with ESRD on PD, GERD, Crohn's Disease, Nicotine Dependence, HTN, Systolic CHF(EF 35%) who presented to the emergency department on 12/22 with complaints of abdominal pain which began shortly after eating fast food rated 10/10 which is periumbilical, constant, associated with fever, nausea and multiple sites of vomiting and self-reported inability to undergo PD. In the emergency room patient underwent a CT scan of the abdomen/pelvis which revealed evidence of partial small bowel obstruction, symptoms were consistent with bacterial peritonitis. Patient was admitted to the hospital service with sepsis, peritonitis, and small bowel obstruction with consults to general surgery, nephrology, infectious disease and [facility]. 12/23. Patient had temperature 101.2 F, tachycardia and elevated lactic acid on admission. Meet sepsis criteria. Started on IV antibiotics. ID has been c onsulted. Surgery consulted this a.m.-advised laparoscopy. He remains on NG tube connected to suction. 12/24. Patient was noted to have peritonitis yesterday and patient undergoing exploratory laparotomy. Patient remained intubated after procedure and is in ICU. Now on broad-spectrum antibiotics. ID on board. 12/25. Remains mechanically ventilated and sedated. Temp 103 Fahrenheit. Antibiotics broadened-ID added fluconazole and Flagyl. Blood cultures ordered. Plan to repeat CT abdomen tomorrow if not better. Surgery following. 12/26: Patient remains on mechanical ventilation on CMV tidal line 550, rate of 14, PEEP of 8 and 30% FiO2 and sedated on fentanyl 4 micrograms. Today we will remove his Jeffery and CCM dropped his rate controlled him on CPAP. We will trend CBC given recent drop in H/H. 12/27: Patient remains intubated on CMV tidal volume 550, rate 12, PEEP 8 on 30% FiO2 at the time my examination. Patient's TPN will be changed to PPN. Patient's fentanyl drip will be changed to IV push fentanyl and have a permacath placed today and midline. Patient was placed on a spontaneous breathing trial was switched back to CMV prior to procedure. 12/28: Patient on fentanyl but awake and follows commands. At the time of my examination he was on a CPAP trial and is scheduled to receive HD today. s/o permacath and PICC placement with vascular yesterday. His blood culture grew Prevotella and addition to Streptococcus bovis. This evening Dr. Spicer attempted to extubate the patient and his heart rate went to the 180s. Stat EKG obtained and cardiology consulted. 12/29: Patient was started on amiodarone IV for A. fib RVR yesterday and today he is more rate controlled into the 70s and 80s. Patient was extubated yesterday and is currently on Ventimask. Patient will be transferred to [facility]. Patient continues to be n.p.o. with TPN and NG tube to LIS. He is hypokalemic today which was repleted. 12/30; patient was on IV amiodarone for treatment with RVR, rate is controlled. Patient was off oxygen. patient is n.p.o. and on TPN. Surgery is following the patient. 12/31: Patient was intubated overnight for respiratory distress and this morning on examination he was on assist control tidal volume 450, rate 20, PEEP 6, 100% FiO2 and RT was getting a ABG to adjust vent settings. Patient had a acute bump in WBC and per ID recommendations we will obtain a CT abdomen/pelvis if leukocytosis persist. Patient is on TPN and sedated with Levophed. Patient is also on vasopressor support with Levophed. Per surgery his ileus is resolving however will maintain OGT to LIWS. 01/01: Patient was started on a vasopressin yesterday late evening. This morning patient is on 20 mcg of Levophed and 0.03 vasopressin and sedated on 20 mcg of propofol. Patient WBC increased today and he is hypokalemic. We will treat hyperkalemia. Patient had a CT chest and abdomen/pelvis pending. The time examination total of 450, rate 20, PEEP of 6 and 35 percent FiO2. Per RN, Dr Pollock has stated that the patient will be returning to the OR today for likely anastomosis seen on CT abdomen/pelvis. 01/02: Patient noted, WBC improving, but noted to have anemia, will transfuse additional unit of Blood and repeat H/H. continue supportive care. 01/03: Continue to wean pressors, ABX PER ID, patient to return to OR today for washout and possible closure, CONTINUE TPN 01/04: Continues to show some improvement. Today is POD#12 s/p ex lap with extensive lysis of adhesions and two small bowel resections with primary anastamosis for SBO with necrotic segment small bowel. POD#3 s/p ex lap, resection of perforated anastamosis, washout and abthera wound vac placement. POD#1 s/p ex lap with right hemicolectomy. Surgery planning to take back to the OR on Saturday with the hope to anastamos ileum to transverse colon and close abdomen. keep NGT to suction. Pt in deep sedation due to open abdomen. Per ID - Continue IV Zosyn, renally dosed for Strep bacteremia treatment till 01/06/2021 -On TPN 01/05: Patient continues on HD, anticipate return to OR tomorrow for closure and anastemosis. Continues with deep sedation due to open abdomen 01/06: Continue supportive care, monitor pressures and electrolytes. He is post op Exploratory laparotomy, 2. Jejunal colonic anastomosis,3. Segmental small bowel resection and anastemosis closure today. Continue wound vac 01/07: Continue supportive care, Today is POD#15 s/p ex lap with extensive lysis of adhesions and two small bowel resections with primary anastamosis for SBO with necrotic segment small bowel. POD#6 s/p ex lap, resection of perforated anastamosis, washout and abthera wound vac placement. POD#4 s/p ex lap with right hemicolectomy. POD #1 exploratory laparotomy, 2. Jejunal colonic anastomosis,3. Segmental small bowel resection. Continue to monitor and correct electrolytes. Patient remains on fentanyl and TPN with lipids. Still hypoactive bowel sounds. 16: Patient now extubated, asked when he can go home, Still lethargic. Continue wound management, wound vac, Will need Rehab eval prior to discharge. 01/09: Patient remains on TPN, was started on labetalol drip per cardiology, africa dueñas had uncontrolled hypertension today however he cannot be given p.o. medications ileus resolves per surgery. Patient received hemodialysis today. NG tube remains to low intermittent suction. 01/10: Patient has some leukocytosis, slight hypokalemia and hyponatremia, metabolic acidosis. NG tube to LIWS, continue TPN. Patient will be downgraded to IMCU today. [facility] is working on placement. Will change frequency of hydralazine and discontinue labetalol drip. We will obtain a.m. BMP/mag/Phos and CBC. Infectious disease will like to start Zosyn if leukocytosis continues to worsen. 01/11: Patient leukocytosis has slightly improved potassium with in normal limits and other electrolytes are elevated but patient is scheduled for HD today. Remains on RA and A,A,Ox4. BP better controlled but remains elevated and we will increase clonidine dose. 01/12/2021; patient's blood pressure is better after dialysis and as needed IV medications and clonidine patch. Patient is followed by general surgery. Patient was alert and oriented and asked when he is going home. 01/13: Surgery is concerned about a leak at his anastamosis given increased output and will treat as controlled fistula and start an octreotide drip. And per surgery if he requires operative intervention will likely need to be left in discontinuity and eventual ileostomy as he has already failed two anastamoses. Patient still has tongue swelling and slurred speech. He is on Benadryl. 01/14: Patient's tongue swelling is improved, patient is alert and oriented, CAM ICU negative. Continue NG tube to low wall intermittent suction. Leukocytosis is improving. Hypomagnesemia resolved. Epogen with HD 01/15: Patient tongue swelling is much improved, bladder scan completed by bedside RN and he needed to be straight cathed. NGT output decreased. Leukocytosis improving. Patient has been having episodes of hypoglycemia during the day and he is on cyclic TPN, Lantus rescheduled to nightly and dosage decreased. 01/16: Continue management per ID and surgery. Will defer repeat CT of the abdomen to the team surgery has been approved by nephrology. Continue current diet and advance all to ice if okay with surgery discussed with nursing staff. 01/17: Discussed surgical recommendation of strict n.p.o. except for small amount of ice as patient has already failed to anastomosis. And risk for additional surgery with tissues were extremely friable from previous scar. He continues on octreotide drip to slow down GI output HARIS drain remains in place with NG suction for decompression. Patient verbalized understanding although stressed about being discharged. We will continue IMCU care unless otherwise advised by david andersen. Prognosis remains guarded continue to monitor electrolytes considering GI output. Severe Sepsis with shock Streptococcus bovis bacteremia/Prevotella bacteremia Gwendolyn albicans tracheal aspirate Small bowel obstruction/necrotic bowel s/p ex lap with extensive lysis of adhesions, 2 small bowel resections with primary anastomosis, right hemicolectomy, jejunal colonic anastomosis, segmental small bowel resection Postoperative ileus Atrial fibrillation with RVR Leukocytosis Hypochloremia Gwendolyn albicans in tracheal aspirate from 12/24 ESRD on PD, PermCath to be placed Transaminitis Systolic CHF(EF 35%) Crohn's disease Hypertension -CCM, surgery, infectious disease, nephrology, vascular surgery, cardiology consulted, appreciate recommendations -12/24 S/p ex lap with extensive expectations, 2 small bowel resections with primary anastomosis with surgery on 12/23 -s/p PICC and Permacath placement with vascular surgery on 12/27 -Extubated on 12/28, reintubated 12/31 for respiratory distress and extubated 01/08 -12/29 echocardiogram shows moderate concentric LVH, small pericardial effusion, transmitral Doppler flow pattern is grade 1 abnormal relaxation pattern, left- ventricular systolic function normal, LVEF 50 to 55%, no wall motion abnormalities. -01/01 CT abdomen/pelvis shows small pericardial effusion, mild coronary artery atherosclerotic calcification, small bilateral pleural effusions with associated volume loss, no convincing evidence of bowel obstruction or inflammation, postoperative changes from interval/recent midline laparotomy with a moderate amount of free fluid throughout the abdomen, small amount of dependent free air presumably postoperative -01/02 s/p ex lap, resection of perforated anastamosis, washout and abthera wound vac placement. -01/04 s/p ex lap with right hemicolectomy. -01/06 s/p exploratory laparotomy, Jejunal colonic anastomosis, Segmental small bowel resection. -s/p Vasopressor support with Levophed and vasopressin -Transitioned to HD from PD -HD per nephro, Epogen with HD -Strict NPO -TPN -Octreotide drip -NGT to LIWS -s/p IV antibiotics -Tobacco abuse cessation counseling -Trend CBC, BMP DVT/GI prophylaxis: PPI, heparin subcu, SCDs to bilateral lower extremities while in bed Disposition: IMCU History Interval history: This is a 60-year-old male with ESRD on peritoneal dialysis, Crohn's, hyperten opal, systolic CHF (EF 35%) who was admitted with sepsis, peritonitis, small bowel obstruction and now has gram-positive cocci bacteremia. Patient seen and examined, this morning no new complaints this morning. Hospitalist Physical - Physical exam Narrative exam: General appearance: Present: no acute distress, Dry oropharyngeal area. - EENT Eyes: Present: PERRL ENT: poor dentition - Neck Neck: Absent: masses or JVD, cervical LAD - Respiratory Respiratory effort: normal Respiratory: bilateral: diminished - Cardiovascular Rhythm: irregularly irregular Heart Sounds: Present: S1 & S2. Absent: systolic murmur, diastolic murmur - Extremities Extremities: no ischemia, pulses intact, pulses symmetrical, No edema, normal temperature, normal color Peripheral Pulses: within normal limits - Abdominal General gastrointestinal: distended, abdomen dressing, rigid, w HARIS drain in place. Hypoactive bowel sounds. - Integumentary Integumentary: Present: Left chest permacath - Neurologic Neurologic: Awake alert oriented moves extremities - Allied Health Allied health notes reviewed: nursing - Constitutional Vitals: Temp Pulse Resp BP Pulse Ox 97.9 F 66 13 144/78 97 01/17/21 07:45 01/17/21 07:01 01/17/21 07:01 01/17/21 07:01 01/17/21 07:01 General appearance: Present: no acute distress HEART Score - HEART Score Troponin: Troponin T 0.021 ng/mL (0.00-0.029) 12/22/20 14:38 Results - Labs CBC & Chem 7: 01/17/21 05:14 01/17/21 05:14 Labs: Laboratory Last Values WBC 12.7 K/mm3 (4.5-11.0) H 01/17/21 05:14 RBC 2.75 M/mm3 (3.65-5.03) L 01/17/21 05:14 Hgb 8.5 gm/dl (11.8-15.2) L 01/17/21 05:14 Hct 24.6 % (35.5-45.6) L 01/17/21 05:14 MCV 90 fl (84-94) 01/17/21 05:14 MCH 31 pg (28-32) 01/17/21 05:14 MCHC 35 % (32-34) H 01/17/21 05:14 RDW 15.4 % (13.2-15.2) H 01/17/21 05:14 Plt Count 288 K/mm3 (140-440) 01/17/21 05:14 Lymph % (Auto) 4.4 % (13.4-35.0) L 01/13/21 03:45 Pitkin % (Auto) 10.3 % (0.0-7.3) H 01/13/21 03:45 Eos % (Auto) 0.9 % (0.0-4.3) 01/13/21 03:45 Baso % (Auto) 0.2 % (0.0-1.8) 01/13/21 03:45 Lymph # (Auto) 0.8 K/mm3 (1.2-5.4) L 01/13/21 03:45 [place]kin # (Auto) 1.8 K/mm3 (0.0-0.8) H 01/13/21 03:45 Eos # (Auto) 0.2 K/mm3 (0.0-0.4) 01/13/21 03:45 Baso # (Auto) 0.0 K/mm3 (0.0-0.1) 01/13/21 03:45 Add Manual Diff Complete 01/10/21 09:26 Total Counted 100 01/10/21 09:26 Seg Neutrophils % 84.2 % (40.0-70.0) H 01/13/21 03:45 Seg Neuts % (Manual) 95.0 % (40.0-70.0) H 01/10/21 09:26 Band Neutrophils % 1.0 % 01/10/21 09:26 Lymphocytes % (Manual) 3.0 % (13.4-35.0) L 01/10/21 09:26 Reactive Lymphs % (Man) 1.0 % 12/29/20 05:16 Monocytes % (Manual) 1.0 % (0.0-7.3) 01/10/21 09:26 Eosinophils % (Manual) 2.0 % (0.0-4.3) 12/29/20 05:16 Metamyelocytes % 2.0 % 12/29/20 05:16 Nucleated RBC % Not Reportable 01/10/21 09:26 Seg Neutrophils # 14.8 K/mm3 (1.8-7.7) H 01/13/21 03:45 Seg Neutrophils # Man 17.3 K/mm3 (1.8-7.7) H 01/10/21 09:26 Band Neutrophils # 0.2 K/mm3 01/10/21 09:26 Lymphocytes # (Manual) 0.5 K/mm3 (1.2-5.4) L 01/10/21 09:26 Abs React Lymphs (Man) 0.0 K/mm3 01/10/21 09:26 Monocytes # (Manual) 0.2 K/mm3 (0.0-0.8) 01/10/21 09:26 Eosinophils # (Manual) 0.0 K/mm3 (0.0-0.4) 01/10/21 09:26 Basophils # (Manual) 0.0 K/mm3 (0.0-0.1) 01/10/21 09:26 Metamyelocytes # 0.0 K/mm3 01/10/21 09:26 Myelocytes # 0.0 K/mm3 01/10/21 09:26 Promyelocytes # 0.0 K/mm3 01/10/21 09:26 Blast Cells # 0.0 K/mm3 01/10/21 09:26 WBC Morphology Not Reportable 01/10/21 09:26 Hypersegmented Neuts Not Reportable 01/10/21 09:26 Hyposegmented Neuts Not Reportable 01/10/21 09:26 Hypogranular Neuts Not Reportable 01/10/21 09:26 Smudge Cells Not Reportable 01/10/21 09:26 Toxic Granulation 1+ 01/10/21 09:26 Toxic Vacuolation Not Reportable 01/10/21 09:26 Dohle Bodies Not Reportable 01/10/21 09:26 Pelger-Huet Anomaly Not Reportable 01/10/21 09:26 Lamar Rods Not Reportable 01/10/21 09:26 Platelet Estimate Consistent w auto 01/10/21 09:26 Clumped Platelets Not Reportable 01/10/21 09:26 Plt Clumps, EDTA Not Reportable 01/10/21 09:26 Large Platelets Not Reportable 01/10/21 09:26 Giant Platelets Not Reportable 01/10/21 09:26 Platelet Satelliting Not Reportable 01/10/21 09:26 Plt Morphology Comment Not Reportable 01/10/21 09:26 RBC Morphology Not Reportable 01/10/21 09:26 Dimorphic RBCs Not Reportable 01/10/21 09:26 Polychromasia Not Reportable 01/10/21 09:26 Hypochromasia Not Reportable 01/10/21 09:26 Poikilocytosis Not Reportable 01/10/21 09:26 Anisocytosis 1+ 01/10/21 09:26 Microcytosis Not Reportable 01/10/21 09:26 Macrocytosis Not Reportable 01/10/21 09:26 Spherocytes Not Reportable 01/10/21 09:26 Pappenheimer Bodies Not Reportable 01/10/21 09:26 Sickle Cells Not Reportable 01/10/21 09:26 Target Cells Not Reportable 01/10/21 09:26 Tear Drop Cells Not Reportable 01/10/21 09:26 Ovalocytes Not Reportable 01/10/21 09:26 Helmet Cells Not Reportable 01/10/21 09:26 [place] Bodies Not Reportable 01/10/21 09:26 Lutts Rings Not Reportable 01/10/21 09:26 Jenny Cells Not Reportable 01/10/21 09:26 Bite Cells Not Reportable 01/10/21 09:26 Crenated Cell Not Reportable 01/10/21 09:26 Elliptocytes Not Reportable 01/10/21 09:26 Acanthocytes (Spur) Not Reportable 01/10/21 09:26 Rouleaux Not Reportable 01/10/21 09:26 Hemoglobin C Crystals Not Reportable 01/10/21 09:26 Schistocytes Not Reportable 01/10/21 09:26 Malaria parasites Not Reportable 01/10/21 09:26 Lucas Bodies Not Reportable 01/10/21 09:26 Hem Pathologist Commnt No 01/10/21 09:26 PT 16.9 Sec. (12.2-14.9) H 01/01/21 12:45 INR 1.39 (0.87-1.13) H 01/01/21 12:45 APTT 25.1 Sec. (24.2-36.6) 12/22/20 14:38 ABG pH 7.345 pH Units (7.350-7.450) L 01/07/21 17:14 POC ABG pCO2 41.4 mmHg (32.0-48.0) 01/07/21 03:07 ABG pCO2 40.3 mm Hg 01/07/21 17:14 POC ABG pO2 94.5 mmHg (83-108) 01/07/21 03:07 ABG pO2 67.4 mm Hg (80.0-90.0) L 01/07/21 17:14 POC ABG HCO3 22.7 01/07/21 03:07 ABG HCO3 21.5 mmol/L (20.0-26.0) 01/07/21 17:14 ABG O2 Saturation 94.3 % (95.0-99.0) L 01/07/21 17:14 ABG O2 Content 11.6 (0.0-44) 01/07/21 17:14 POC ABG Base Excess -2.7 01/07/21 03:07 ABG Base Excess -3.9 mmol/L (-2.0-3.0) L 01/07/21 17:14 ABG Hemoglobin 8.9 gm/dl (14.0-18.0) L 01/07/21 17:14 ABG Oxyhemoglobin 96.6 (94-98) 01/07/21 03:07 ABG Carboxyhemoglobin 1.5 % (0.0-5.0) 01/07/21 17:14 ABG Methemoglobin 0.6 % (0.0-1.5) 01/07/21 17:14 ABG Sodium 135.6 mmol/L (136.0-145.0) L 01/07/21 03:07 ABG Potassium 4.0 mmol/L (3.40-4.50) 01/07/21 03:07 ABG Chloride 102.0 mmol/L (98-107) 01/07/21 03:07 ABG Glucose 181 mg/dL (65-95) H 01/07/21 03:07 Oxyhemoglobin 92.3 % (95.0-99.0) L 01/07/21 17:14 Carboxyhemoglobin 0.7 (0.5-1.5) 01/07/21 03:07 FiO2 21 % 01/07/21 17:14 FiO2 % 45.0 01/07/21 03:07 Sodium 137 mmol/L (137-145) 01/17/21 05:14 Potassium 3.7 mmol/L (3.6-5.0) 01/17/21 05:14 Chloride 97.9 mmol/L (98-107) L 01/17/21 05:14 Carbon Dioxide 25 mmol/L (22-30) 01/17/21 05:14 Anion Gap 18 mmol/L 01/17/21 05:14 BUN 84 mg/dL (9-20) H 01/17/21 05:14 Creatinine 7.8 mg/dL (0.8-1.3) H 01/17/21 05:14 Estimated GFR 9 ml/min 01/17/21 05:14 BUN/Creatinine Ratio 11 % 01/17/21 05:14 Glucose 176 mg/dL (75-100) H 01/17/21 05:14 POC Glucose 162 mg/dL (70-105) H 01/17/21 05:33 Lactic Acid 1.10 mmol/L (0.7-2.0) 01/14/21 05:39 Calcium 8.0 mg/dL (8.4-10.2) L 01/17/21 05:14 Phosphorus 3.50 mg/dL (2.5-4.5) D 01/17/21 05:14 Magnesium 1.70 mg/dL (1.7-2.3) 01/17/21 05:14 Total Bilirubin 0.90 mg/dL (0.1-1.2) 01/08/21 04:34 AST 30 units/L (5-40) 01/08/21 04:34 ALT 29 units/L (7-56) 01/08/21 04:34 Alkaline Phosphatase 133 units/L (35-129) H 01/08/21 04:34 Ammonia 30.0 umol/L (25-60) 12/22/20 14:38 Troponin T 0.021 ng/mL (0.00-0.029) 12/22/20 14:38 Total Protein 5.4 g/dL (6.3-8.2) L 01/08/21 04:34 Albumin 1.9 g/dL (3.9-5) L 01/08/21 04:34 Albumin/Globulin Ratio 0.5 % 01/08/21 04:34 Triglycerides 77 mg/dL (2-149) 01/11/21 05:18 Lipase 41 units/L (13-60) 12/22/20 14:38 Procalcitonin > 200.00 ng/mL (<0.15) 12/24/20 15:06 TSH 1.470 mlU/mL (0.270-4.200) 12/28/20 19:44 Arterial Blood Glucose 181 mg/dL (65-95) H 01/07/21 03:07 Arterial Blood Ionized Calcium 4.3 mg/dL (4.6-5.3) L 01/07/21 03:07 Urine Color Yellow (Yellow) 12/22/20 18:53 Urine Turbidity Clear (Clear) 12/22/20 18:53 Urine pH 7.0 (5.0-7.0) 12/22/20 18:53 Ur Specific [place] 1.012 (1.003-1.030) 12/22/20 18:53 Urine Protein >500 mg/dL (Negative) 12/22/20 18:53 Urine Glucose (UA) Neg mg/dL (Negative) 12/22/20 18:53 Urine Ketones Neg mg/dL (Negative) 12/22/20 18:53 Urine Blood Neg (Negative) 12/22/20 18:53 Urine Nitrite Neg (Negative) 12/22/20 18:53 Urine Bilirubin Neg (Negative) 12/22/20 18:53 Urine Urobilinogen < 2.0 mg/dL (<2.0) 12/22/20 18:53 Ur Leukocyte Esterase Neg (Negative) 12/22/20 18:53 Urine WBC (Auto) < 1.0 /HPF (0.0-6.0) 12/22/20 18:53 Urine RBC (Auto) 1.0 /HPF (0.0-6.0) 12/22/20 18:53 Fluid Type Dialysate 12/22/20 Unknown Fluid Color Colorless 12/22/20 Unknown Fluid Appearance Cloudy 12/22/20 Unknown Fluid WBC 208 /mm3 12/22/20 Unknown Fluid RBC 45 /mm3 12/22/20 Unknown Fluid Seg Neutrophils 82.0 % 12/22/20 Unknown Fluid Lymphocytes 11.0 % 12/22/20 Unknown Fluid Reactive Lymphs 0 % 12/22/20 Unknown Fluid Monocytes 7.0 % 12/22/20 Unknown Fluid Eosinophils 0 % 12/22/20 Unknown Fluid Basophils 0 % 12/22/20 Unknown Random Vancomycin 13.7 ug/mL (0-40.0) 12/26/20 Unknown Digoxin 0.8 ng/mL (0.9-2.0) L 01/11/21 05:18 Hepatitis A IgM Ab Non-reactive (NonReactive) 12/23/20 11:38 Hep Bs Antigen Non-reactive (Negative) 12/23/20 11:38 Hep B Core IgM Ab Non-reactive (NonReactive) 12/23/20 11:38 Hepatitis C Antibody Non-reactive (NonReactive) 12/23/20 11:38 Blood Type A POSITIVE 01/06/21 07:10 Antibody Screen Negative 01/06/21 07:10 Crossmatch See Detail 01/06/21 07:10 Jeffery/IV: Voiding Method Urinal Active Medications - Current Medications Current Medications: Generic Name Dose Route Start Last Admin Trade Name Freq PRN Reason Stop Dose Admin Acetaminophen 650 mg 12/31/20 15:30 12/31/20 15:13 Acetaminophen 650 Mg Rect Supp MO 650 mg Q6H PRN Administration Non Cardiac Pain or Temp>100.5 Clonidine HCl 0.2 mg 01/11/21 10:00 01/11/21 09:24 Clonidine Tts 0.2 Mg/24 Hr Patch TD 0.2 mg We THOMAS Administration Dextrose 50 ml 01/14/21 17:59 01/15/21 12:08 Dextrose 50% In Water (25gm) 50 Ml Syringe IV 15 ml Q30MIN PRN Administration Hypoglycemia Protocol Digoxin 0.125 mg 01/09/21 12:00 01/15/21 12:07 Digoxin 0.5 Mg/2 Ml Inj IV 0.125 mg Q48H THOMAS Administration Famotidine 10 mg 12/24/20 13:00 01/16/21 21:45 Famotidine 20 Mg/2 Ml Inj IV 10 mg BID THOMAS Administration Haloperidol Lactate 5 mg 12/29/20 14:16 01/16/21 00:14 Haloperidol Lactate 5 Mg/1 Ml Inj IV 5 mg Q12H PRN Administration Agitation Heparin Sodium (Porcine) 5,000 unit 12/24/20 10:00 01/16/21 21:43 Heparin 5,000 Unit/1 Ml Vial SUB-Q 5,000 unit Q12HR THOMAS Administration Hydralazine HCl 10 mg 01/10/21 14:00 01/17/21 06:07 Hydralazine 20 Mg/1 Ml Inj IV 10 mg Q4HR THOMAS Administration Hydromorphone HCl 0.25 mg 01/09/21 10:53 01/16/21 21:48 Hydromorphone 1 Mg/1 Ml Inj IV 0.25 mg Q6H PRN Administration Pain , Severe (7-10) Hydrophilic Ointment 1 applic 12/31/20 06:39 01/11/21 21:28 Lip Therapy Vaseline TP 1 applic Q2HR PRN Administration Dry Lips Sodium Chloride 100 mls @ 999 mls/hr 01/12/21 09:20 Nacl 0.9% IV RYLAND PRN Hypotension Octreotide Acetate 500 mcg/ 101 mls @ 5.05 mls/hr 01/13/21 11:00 01/15/21 18:54 Sodium Chloride IV 25 mcg/hr TITR THOMAS 5.05 mls/hr Administration Protocol 25 MCG/HR Piperacillin Sod/Tazobactam Sod 2.25 gm in 50 mls @ 100 mls/hr 01/13/21 12:00 01/17/21 04:07 Zosyn/Ns 2.25 Gm/50ml IV 100 mls/hr Q8H THOMAS Administration Protocol Insulin Glargine 10 units 01/16/21 22:00 01/16/21 21:44 Insulin Glargine 100 Units/Ml SUB-Q 10 units QHS THOMAS Administration Insulin Human Lispro 0 unit 01/03/21 12:00 01/17/21 06:05 Insulin Lispro 100 Unit/Ml SUB-Q 3 unit Q6HR THOMAS Administration Protocol Metoprolol Tartrate 5 mg 12/30/20 12:00 01/17/21 06:05 Metoprolol Tartrate 5 Mg/5 Ml Inj IV 5 mg Q4HR THOMAS Administration Multi-Ingred Cream/Lotion/Oil/Oint 1 applic 12/31/20 06:39 Mineral Oil/Petrolatum, White Ophth Oint 3.5 Gm OU Q4HR PRN Dry Eye(s) Scopolamine 1 each 01/15/21 11:00 01/15/21 12:00 Scopolamine Transdermal Patch 72 Hr TD 1 each Q3D THOMAS Administration Sodium Chloride 10 ml 12/22/20 22:00 01/16/21 21:47 Sodium Chloride 0.9% 10 Ml Flush Syringe IV 10 ml BID THOMAS Administration Sodium Chloride 10 ml 12/22/20 19:42 01/09/21 17:27 Sodium Chloride 0.9% 10 Ml Flush Syringe IV 10 ml PRN PRN Administration LINE FLUSH Nutrition/Malnutrition Assess - Dietary Evaluation Nutrition/Malnutrition Findings: Nutrition Notes Start: 12/24/20 12:36 Freq: Status: Active Protocol: Document 01/16/21 13:55 (Rec: 01/16/21 13:58 [email or web address]) Nutrition Notes Initial or Follow up Reassessment Current Diagnosis CKD (stage V CKD),Sepsis, Hypertension,Heart Failure, Small Bowel Obstruction Other Pertinent Diagnosis Peritonitis, SBO s/p resection Current Diet 12 h Cyclic CPN 108/180/108 Labs/Tests Na 133 Phos 5.5 Mg 2.5 Pertinent Medications Reviewed Height 5 ft 7 in Weight 87 kg [place] Body Weight (kg) 67.27 BMI 30.0 Weight Status Overweight Subjective/Other Information TPN day 22. Pt remains on NGT to LIS with NPO. Percent of energy/protein needs met: 100%/100% Burn Absent Trauma Absent Current % PO Negligible Minimum of two criteria No #1 Nutrition Diagnosis Inadequate oral intake Diagnosis Progress(for reassessment Continues documentation) Is patient on ventilator? No Is Patient Ambulatory and/or Out of Bed No REE-([facility]-confined to bed) 1959.264 Kcal/Kg value to use for calculation 19 Approximate Energy Requirements Using 1653 kcal/Kg Calculation Used for Recommendations Kcal/kg Additional Notes Pro needs: 101-121 g/day (1.25 -1.5 g/kg AdjBW, 81kg) Fluid needs per MD. Nutrition Intervention Change Diet Order: Continue CPN Nutrition Support: 12 h Cyclic CPN at 108/180/108 ml/hr Osmoality 1602 0mEq Mg Lipids, MVI Kcal 2,174 Protein (gm) 121 Carbohydrates (gm) 350 Fat (gm) 50 Fluid (mL) 2,266 Fiber (gm) 0 Goal #1 Meet at least 75% of estimated energy and protein needs via CPN Anticipated Discharge Needs: 12 hour cyclic TPN Follow-Up By: 01/17/21 Additional Comments Labs in AM: BMP, Mg, Phos
--- NOTE | 2021-01-17 09:19 | Progress Note ---
Assessment and Plan Assessment: * ESRD previouasly on peritoneal dialysis; now on back up HD (on peritoneal dialysis for 2 years) * Small bowel obstruction --s/p ex-lap with jejuno-ileal anastamosis --s/p ex lap with extensive lysis of adhesions and two small bowel resections with primary anastamosis for SBO with necrotic segment small bowel. --s/p ex lap, resection of perforated anastamosis, washout and abthera wound vac placement. --s/p ex lap with right hemicolectomy. * Acute respiratory failure * Septic shock - resolved * Bacteremia - resolved * Hyperkalemia * Anemia of ESRD * Atrial fibrilation, new onset * Post op ileus Plan: * Continue HD MWF via left IJ permcath (12/27) * 4K bath with dialysis * UF as tolerated * Epogen 10k units w/ dialysis * Rate control per cardiology * Abx per primary team/ID * Nutrition per primary team * Maintatin MAP >65 * Surgery notes appreciated * He will also require outpatient hemodialysis chair prior to discharge Subjective Date of service: 01/17/21 Principal diagnosis: Ac hypoxemic resp failure; Severe Sepsis; Peritonitis; Acute SBO; ESRD; CHF Interval history: Patient remains in IMCU. Currently on TPN as well as octreotide drip. Denies any shortness of breath. Uneventful hemodialysis yesterday Objective - Vital Signs Vital signs: Vital Signs - 12hr 01/16/21 01/16/21 01/16/21 21:46 21:48 21:49 Temperature Pulse Rate 75 75 Pulse Rate [ From Monitor] Respiratory 17 Rate Blood Pressure 149/67 149/67 O2 Sat by Pulse Oximetry 01/16/21 01/16/21 01/16/21 22:00 23:00 23:47 Temperature 98.6 F Pulse Rate 71 68 Pulse Rate [ From Monitor] Respiratory 19 10 L Rate Blood Pressure 143/60 126/51 O2 Sat by Pulse 97 93 Oximetry 01/17/21 01/17/21 01/17/21 00:00 01:01 02:01 Temperature Pulse Rate 78 68 71 Pulse Rate [ 77 From Monitor] Respiratory 32 H 20 21 Rate Blood Pressure 120/47 117/43 152/63 O2 Sat by Pulse 97 98 98 Oximetry 01/17/21 01/17/21 01/17/21 02:18 03:00 04:00 Temperature 98.2 F Pulse Rate 66 65 68 Pulse Rate [ 71 From Monitor] Respiratory 13 18 Rate Blood Pressure 145/65 157/75 159/66 O2 Sat by Pulse 99 97 Oximetry 01/17/21 01/17/21 01/17/21 05:00 06:00 06:05 Temperature Pulse Rate 70 70 68 Pulse Rate [ From Monitor] Respiratory 21 24 Rate Blood Pressure 150/67 148/67 148/67 O2 Sat by Pulse 97 99 Oximetry 01/17/21 01/17/21 01/17/21 06:07 07:01 07:45 Temperature 97.9 F Pulse Rate 68 66 Pulse Rate [ From Monitor] Respiratory 13 Rate Blood Pressure 148/67 144/78 O2 Sat by Pulse 97 Oximetry - General Appearance General appearance: well-developed, well-nourished EENT: ATNC, PERRL Neck: no JVD, no thyromegaly, other (Left IJ PermCath in place) Cardiology: regular, normal heart rate Gastrointestinal: other (Abdomen slightly distended. Midline incision noted. Wound VAC in place. Right flank drain tube also noted. No edema) - Lab 01/17/21 05:14 01/17/21 05:14 Most recent lab results ABG pH 7.345 pH Units (7.350-7.450) L 01/07/21 17:14 ABG pCO2 40.3 mm Hg 01/07/21 17:14 ABG pO2 67.4 mm Hg (80.0-90.0) L 01/07/21 17:14 ABG HCO3 21.5 mmol/L (20.0-26.0) 01/07/21 17:14 ABG O2 Saturation 94.3 % (95.0-99.0) L 01/07/21 17:14 Calcium 8.0 mg/dL (8.4-10.2) L 01/17/21 05:14 Phosphorus 3.50 mg/dL (2.5-4.5) D 01/17/21 05:14 Magnesium 1.70 mg/dL (1.7-2.3) 01/17/21 05:14 Medications & Allergies - Medications Allergies/Adverse Reactions: Allergies No Known Allergies Allergy (Verified 06/09/20 15:27) Home Medications: Home Medications Medication Instructions Recorded Confirmed Last Taken Type Albuterol Mdi (or & Nicu Only) 2 puff IH QID PRN #1 inhalation 04/01/17 11/01/20 10/31/20 09:00 Rx [ProAir HFA Inhaler] Calcium Acetate 667 mg PO DAILY 04/20/20 11/01/20 10/31/20 09:00 History Centrum Men's Tablet 1 tab PO DAILY 04/20/20 11/01/20 10/31/20 09:00 History Cinacalcet 30 mg PO DAILY 04/20/20 11/01/20 10/31/20 09:00 History Dialyvite with Zinc Tablet 1 tab PO DAILY 04/20/20 11/01/20 10/31/20 09:00 Hi story Magnesium 250 mg PO BID 04/20/20 11/01/20 10/31/20 17:00 History Triamcinolone 0.1% 1 1000units TRANSDERMA DAILY 04/20/20 11/01/20 10/31/20 09:00 History Vit B12/Folic Acid/B6/Aa No.15 1,000 mg PO DAILY 04/20/20 11/01/20 10/31/20 09:00 History amLODIPine 10 mg PO DAILY 06/09/20 11/01/20 10/31/20 09:00 History AtorvaSTATin 40 mg PO HS 11/01/20 11/01/20 10/31/20 21:00 History Benadryl 25 mg PO HS 11/01/20 11/01/20 10/31/20 21:00 History Diclofenac 1 TRANSDERMA QID 11/01/20 10/31/20 19:00 History Fluticasone Propionate 1 spray INTRANASAL DAILY 11/01/20 11/01/20 10/31/20 09:00 History Vitamin D3 2,000 units 11/01/20 10/31/20 09:00 History carvediloL 12.5 mg PO DAILY 11/01/20 11/01/20 10/31/20 09:00 History hydrALAZINE 100 mg PO TID 11/01/20 11/01/20 10/31/20 19:00 History Active Medications: Generic Name Dose Route Start Last Admin Trade Name Freq PRN Reason Stop Dose Admin Acetaminophen 650 mg 12/31/20 15:30 12/31/20 15:13 Acetaminophen 650 Mg Rect Supp TN 650 mg Q6H PRN Administration Non Cardiac Pain or Temp>100.5 Clonidine HCl 0.2 mg 01/11/21 10:00 01/11/21 09:24 Clonidine Tts 0.2 Mg/24 Hr Patch TD 0.2 mg We THOMAS Administration Dextrose 50 ml 01/14/21 17:59 01/15/21 12:08 Dextrose 50% In Water (25gm) 50 Ml Syringe IV 15 ml Q30MIN PRN Administration Hypoglycemia Protocol Digoxin 0.125 mg 01/09/21 12:00 01/15/21 12:07 Digoxin 0.5 Mg/2 Ml Inj IV 0.125 mg Q48H THOMAS Administration Famotidine 10 mg 12/24/20 13:00 01/16/21 21:45 Famotidine 20 Mg/2 Ml Inj IV 10 mg BID THOMAS Administration Haloperidol Lactate 5 mg 12/29/20 14:16 01/16/21 00:14 Haloperidol Lactate 5 Mg/1 Ml Inj IV 5 mg Q12H PRN Administration Agitation Heparin Sodium (Porcine) 5,000 unit 12/24/20 10:00 01/16/21 21:43 Heparin 5,000 Unit/1 Ml Vial SUB-Q 5,000 unit Q12HR THOMAS Administration Hydralazine HCl 10 mg 01/10/21 14:00 01/17/21 06:07 Hydralazine 20 Mg/1 Ml Inj IV 10 mg Q4HR THOMAS Administration Hydromorphone HCl 0.25 mg 01/09/21 10:53 01/16/21 21:48 Hydromorphone 1 Mg/1 Ml Inj IV 0.25 mg Q6H PRN Administration Pain , Severe (7-10) Hydrophilic Ointment 1 applic 12/31/20 06:39 01/11/21 21:28 Lip Therapy Vaseline TP 1 applic Q2HR PRN Administration Dry Lips Sodium Chloride 100 mls @ 999 mls/hr 01/12/21 09:20 Nacl 0.9% IV [place] PRN Hypotension Octreotide Acetate 500 mcg/ 101 mls @ 5.05 mls/hr 01/13/21 11:00 01/15/21 18:54 Sodium Chloride IV 25 mcg/hr TITR THOMAS 5.05 mls/hr Administration Protocol 25 MCG/HR Piperacillin Sod/Tazobactam Sod 2.25 gm in 50 mls @ 100 mls/hr 01/13/21 12:00 01/17/21 04:07 Zosyn/Ns 2.25 Gm/50ml IV 100 mls/hr Q8H THOMAS Administration Protocol Insulin Glargine 10 units 01/16/21 22:00 01/16/21 21:44 Insulin Glargine 100 Units/Ml SUB-Q 10 units QHS THOMAS Administration Insulin Human Lispro 0 unit 01/03/21 12:00 01/17/21 06:05 Insulin Lispro 100 Unit/Ml SUB-Q 3 unit Q6HR THOMAS Administration Protocol Metoprolol Tartrate 5 mg 12/30/20 12:00 01/17/21 06:05 Metoprolol Tartrate 5 Mg/5 Ml Inj IV 5 mg Q4HR THOMAS Administration Multi-Ingred Cream/Lotion/Oil/Oint 1 applic 12/31/20 06:39 Mineral Oil/Petrolatum, White Ophth Oint 3.5 Gm OU Q4HR PRN Dry Eye(s) Scopolamine 1 each 01/15/21 11:00 01/15/21 12:00 Scopolamine Transdermal Patch 72 Hr TD 1 each Q3D THOMAS Administration Sodium Chloride 10 ml 12/22/20 22:00 01/16/21 21:47 Sodium Chloride 0.9% 10 Ml Flush Syringe IV 10 ml BID THOMAS Administration Sodium Chloride 10 ml 12/22/20 19:42 01/09/21 17:27 Sodium Chloride 0.9% 10 Ml Flush Syringe IV 10 ml PRN PRN Administration LINE FLUSH
[2021-01-17] MEDS: FAMOTIDINE 20 MG/2 ML INJ IV SCH ×2 (10:45→22:56)
[2021-01-17] MEDS: HEPARIN 5,000 UNIT/1 ML VIAL SUB-Q SCH ×2 (10:47→22:55)
--- NOTE | 2021-01-17 10:50 | Progress Note ---
Assessment and Plan This is a 60 YO Male with ESRD on PD, GERD, Crohn's Disease, Nicotine Dependence, HTN, Systolic CHF(EF 35%) who presented to the emergency department on 12/22 with complaints of abdominal pain which began shortly after eating fast food rated 10/10 which is periumbilical, constant, associated with fever, nausea and multiple sites of vomiting and self-reported inability to undergo PD. In the emergency room patient underwent a CT scan of the abdomen/pelvis which revealed evidence of partial small bowel obstruction, symptoms were consistent with bacterial peritonitis. Patient was admitted to the hospital service with sepsis, peritonitis, and small bowel obstruction with consults to general surgery, nephrology, infectious disease and [facility] [place]. On 01/06/21 the patient underwent an exploratory laparotomy, jejunal colonic anastomosis, and segmental small bowel resection. atient sleeping on room air. O2 saturation 98%. No acute respiratory distress. ABG's (01/07/21): pH 7.345 pH POC ABG pCO2 41.4 mmHg ABG pCO2 40.3 mm Hg POC ABG pO2 94.5 mmHg ABG pO2 67.4 mm Hg POC ABG HCO3 22.7 ABG O2 Saturation 94.3 % Patient afebrile with leukocytosis. Chest x-ray reported There is decreased inspiration compared to yesterday's exam. Hazy opacity in the right perihilar region and larger area of infiltration in the left lower lung appears stable given differences in the level of inspiration. No large pleural effusion or pneumothorax. Patient presently on zosyn, s/c heparin, famotidine Patient was seen in IMCU. I spent critical care time of 32 minutes, review the chart, examining the patient, review labs and xrays, talking to the nursing staff, respiratory therapy . - Patient Problems (1) Nicotine dependence Current Visit: Yes Status: Acute Qualifiers: Nicotine product type: cigarettes Substance use status: in withdrawal Qualified Code(s): F17.213 - Nicotine dependence, cigarettes, with withdrawal Plan to address problem: Counseled patient to stop smoking. (2) SOB (shortness of breath) Current Visit: No Status: Acute Plan to address problem: Improved. Patient resting on room air at this time. O2 saturation 98%. (3) Atrial fibrillation Current Visit: Yes Status: Acute Plan to address problem: Management as per cardiology. (4) CHF (congestive heart failure) Current Visit: No Status: Acute Qualifiers: Heart failure chronicity: chronic Plan to address problem: Management as per cardiology. (5) Small bowel obstruction Current Visit: Yes Status: Acute Plan to address problem: On 01/06/21 the patient underwent an exploratory laparotomy, jejunal colonic anastomosis, and segmental small bowel resection. Management as per surgery. Continue incentive spirometry (6) Small intestinal gangrene Current Visit: Yes Status: Acute Plan to address problem: On 01/06/21 the patient underwent an exploratory laparotomy, jejunal colonic anastomosis, and segmental small bowel resection. Management as per surgery. Continue incentive spirometry (7) Accelerated hypertension Current Visit: No Status: Acute Plan to address problem: Management as per primary care. (8) Acute on chronic kidney disease, stage 3 Current Visit: No Status: Acute Plan to address problem: Management as per nephrology. Subjective Date of service: 01/17/21 Principal diagnosis: Ac hypoxemic resp failure; Severe Sepsis; Peritonitis; Acute SBO; ESRD; CHF Interval history: This is a 60 YO Male with ESRD on PD, GERD, Crohn's Disease, Nicotine Dependence, HTN, Systolic CHF(EF 35%) who presented to the emergency department on 12/22 with complaints of abdominal pain which began shortly after eating fast food rated 10/10 which is periumbilical, constant, associated with fever, nausea and multiple sites of vomiting and self-reported inability to undergo PD. In the emergency room patient underwent a CT scan of the abdomen/pelvis which revealed evidence of partial small bowel obstruction, symptoms were consistent with bacterial peritonitis. Patient was admitted to the hospital service with sepsis, peritonitis, and small bowel obstruction with consults to general surgery, nephrology, infectious disease and [facility] [place]. On 01/06/21 the patient underwent an exploratory laparotomy, jejunal colonic anastomosis, and segmental small bowel resection. Patient sleeping on room air. O2 saturation 98%. No acute respiratory distress. ABG's (01/07/21): pH 7.345 pH POC ABG pCO2 41.4 mmHg ABG pCO2 40.3 mm Hg POC ABG pO2 94.5 mmHg ABG pO2 67.4 mm Hg POC ABG HCO3 22.7 ABG O2 Saturation 94.3 % Patient afebrile with leukocytosis. Chest x-ray reported There is decreased inspiration compared to yesterday's exam. Hazy opacity in the right perihilar region and larger area of infiltration in the left lower lung appears stable given differences in the level of inspiration. No large pleural effusion or pneumothorax. Patient presently on zosyn, s/c heparin, famotidine Objective Vital Signs - 12hr 01/16/21 01/16/21 01/17/21 23:00 23:47 00:00 Temperature 98.6 F Pulse Rate 68 78 Pulse Rate [ 77 From Monitor] Respiratory 10 L 32 H Rate Blood Pressure 126/51 120/47 O2 Sat by Pulse 93 97 Oximetry 01/17/21 01/17/21 01/17/21 01:01 02:01 02:18 Temperature Pulse Rate 68 71 66 Pulse Rate [ From Monitor] Respiratory 20 21 Rate Blood Pressure 117/43 152/63 145/65 O2 Sat by Pulse 98 98 Oximetry 01/17/21 01/17/21 01/17/21 03:00 04:00 05:00 Temperature 98.2 F Pulse Rate 65 68 70 Pulse Rate [ 71 From Monitor] Respiratory 13 18 21 Rate Blood Pressure 157/75 159/66 150/67 O2 Sat by Pulse 99 97 97 Oximetry 01/17/21 01/17/21 01/17/21 06:00 06:05 06:07 Temperature Pulse Rate 70 68 68 Pulse Rate [ From Monitor] Respiratory 24 Rate Blood Pressure 148/67 148/67 148/67 O2 Sat by Pulse 99 Oximetry 01/17/21 01/17/21 07:01 07:45 Temperature 97.9 F Pulse Rate 66 Pulse Rate [ From Monitor] Respiratory 13 Rate Blood Pressure 144/78 O2 Sat by Pulse 97 Oximetry Constitutional: no acute distress, asleep Eyes: non-icteric ENT: oropharynx moist, oropharyngeal exudate pre (improved), other (macroglossia improved) Neck: supple, no lymphadenopathy, no JVD Effort: normal Ascultation: Bilateral: diminished breath sounds, rales, rhonchi Percussion: Bilateral: not dull Cardiovascular: regular rate and rhythm Gastrointestinal: hypoactive bowel sounds, soft, non-tender, non-distended (protuberant), other (Midline abdominal incision ) Integumentary: other (Midline abdominal incision ) Extremities: no cyanosis, no edema, pulses normal, no ischemia or petechiae Neurologic: non-focal exam (grossly), pupils equal and round, CN II-XII normal, motor strength normal and (sedated) Psychiatric: other (Patient sleeping at this time.) CBC and BMP: 01/17/21 05:14 01/17/21 05:14 ABG, PT/INR, D-dimer: ABG ABG pH 7.345 pH Units (7.350-7.450) L 01/07/21 17:14 POC ABG pCO2 41.4 mmHg (32.0-48.0) 01/07/21 03:07 ABG pCO2 40.3 mm Hg 01/07/21 17:14 POC ABG pO2 94.5 mmHg (83-108) 01/07/21 03:07 ABG pO2 67.4 mm Hg (80.0-90.0) L 01/07/21 17:14 POC ABG HCO3 22.7 01/07/21 03:07 ABG O2 Saturation 94.3 % (95.0-99.0) L 01/07/21 17:14 PT/INR, D-dimer PT 16.9 Sec. (12.2-14.9) H 01/01/21 12:45 INR 1.39 (0.87-1.13) H 01/01/21 12:45 Abnormal lab findings: Abnormal Labs 12/22/20 12/22/20 12/22/20 14:38 14:38 14:38 WBC RBC Hgb 11.2 L Hct 35.0 L MCV MCHC RDW 16.7 H Plt Count Lymph % (Auto) [place] % (Auto) Lymph # (Auto) [place] # (Auto) Seg Neutrophils % Seg Neuts % (Manual) 94.0 H Lymphocytes % (Manual) 5.0 L Monocytes % (Manual) Seg Neutrophils # Seg Neutrophils # Man Lymphocytes # (Manual) 0.3 L Monocytes # (Manual) PT INR ABG pH POC ABG pCO2 POC ABG pO2 ABG pO2 ABG HCO3 ABG O2 Saturation ABG Base Excess ABG Hemoglobin ABG Oxyhemoglobin ABG Sodium ABG Potassium ABG Chloride ABG Glucose Oxyhemoglobin Sodium Potassium Chloride Carbon Dioxide BUN 58 H Creatinine 13.2 H Glucose 113 H POC Glucose Lactic Acid 3.60 H* Calcium Phosphorus Magnesium Total Bilirubin 1.30 H AST ALT Alkaline Phosphatase 155 H Total Protein Albumin Triglycerides Arterial Blood Glucose Arterial Blood Ionized Calcium Digoxin Crossmatch 04/29/21 04/29/21 04/30/21 16:26 17:47 05:22 WBC RBC Hgb Hct MCV MCHC RDW Plt Count Lymph % (Auto) [place] % (Auto) Lymph # (Auto) [place] # (Auto) Seg Neutrophils % Seg Neuts % (Manual) Lymphocytes % (Manual) Monocytes % (Manual) Seg Neutrophils # Seg Neutrophils # Man Lymphocytes # (Manual) Monocytes # (Manual) PT INR ABG pH POC ABG pCO2 POC ABG pO2 ABG pO2 ABG HCO3 ABG O2 Saturation ABG Base Excess ABG Hemoglobin ABG Oxyhemoglobin ABG Sodium ABG Potassium ABG Chloride ABG Glucose Oxyhemoglobin Sodium Potassium Chloride Carbon Dioxide BUN Creatinine Glucose POC Glucose Lactic Acid 2.80 H* 3.10 H* 2.30 H* Calcium Phosphorus Magnesium Total Bilirubin AST ALT Alkaline Phosphatase Total Protein Albumin Triglycerides Arterial Blood Glucose Arterial Blood Ionized Calcium Digoxin Crossmatch 12/23/20 12/23/20 12/23/20 05:22 05:22 06:35 WBC 12.1 H RBC Hgb 11.0 L Hct 33.7 L MCV MCHC RDW 16.9 H Plt Count Lymph % (Auto) [place] % (Auto) Lymph # (Auto) [place] # (Auto) Seg Neutrophils % Seg Neuts % (Manual) 93.0 H Lymphocytes % (Manual) 1.0 L Monocytes % (Manual) Seg Neutrophils # Seg Neutrophils # Man 11.3 H Lymphocytes # (Manual) 0.1 L Monocytes # (Manual) PT INR ABG pH POC ABG pCO2 POC ABG pO2 ABG pO2 ABG HCO3 ABG O2 Saturation ABG Base Excess ABG Hemoglobin ABG Oxyhemoglobin ABG Sodium ABG Potassium ABG Chloride ABG Glucose Oxyhemoglobin Sodium Potassium 5.7 H D Chloride Carbon Dioxide BUN 73 H Creatinine 14.2 H Glucose POC Glucose Lactic Acid 2.30 H* Calcium 7.9 L Phosphorus Magnesium Total Bilirubin 1.40 H AST 119 H ALT 130 H Alkaline Phosphatase 183 H Total Protein 6.1 L Albumin 3.6 L Triglycerides Arterial Blood Glucose Arterial Blood Ionized Calcium Digoxin Crossmatch 12/23/20 12/23/20 12/23/20 11:40 13:53 16:47 WBC RBC Hgb 10.0 L Hct 30.4 L MCV MCHC RDW Plt Count Lymph % (Auto) [place] % (Auto) Lymph # (Auto) [place] # (Auto) Seg Neutrophils % Seg Neuts % (Manual) Lymphocytes % (Manual) Monocytes % (Manual) Seg Neutrophils # Seg Neutrophils # Man Lymphocytes # (Manual) Monocytes # (Manual) PT INR ABG pH POC ABG pCO2 POC ABG pO2 137.5 H ABG pO2 ABG HCO3 ABG O2 Saturation ABG Base Excess ABG Hemoglobin 9.7 L ABG Oxyhemoglobin ABG Sodium 134.1 L ABG Potassium 6.6 H ABG Chloride ABG Glucose 103 H Oxyhemoglobin Sodium Potassium Chloride Carbon Dioxide BUN Creatinine Glucose POC Glucose Lactic Acid Calcium Phosphorus Magnesium Total Bilirubin AST ALT Alkaline Phosphatase Total Protein Albumin Triglycerides Arterial Blood Glucose 103 H Arterial Blood Ionized Calcium 3.8 L Digoxin Crossmatch See Detail 12/23/20 12/23/20 12/24/20 20:35 20:40 01:20 WBC RBC Hgb Hct MCV MCHC RDW Plt Count Lymph % (Auto) [place] % (Auto) Lymph # (Auto) [place] # (Auto) Seg Neutrophils % Seg Neuts % (Manual) Lymphocytes % (Manual) Monocytes % (Manual) Seg Neutrophils # Seg Neutrophils # Man Lymphocytes # (Manual) Monocytes # (Manual) PT INR ABG pH 7.252 L POC ABG pCO2 POC ABG pO2 ABG pO2 50.1 L ABG HCO3 ABG O2 Saturation 81.1 L ABG Base Excess -5.9 L ABG Hemoglobin 12.1 L ABG Oxyhemoglobin ABG Sodium ABG Potassium ABG Chloride ABG Glucose Oxyhemoglobin 78.6 L Sodium 134 L Potassium 6.9 H* D 6.3 H* Chloride Carbon Dioxide 18 L 20 L BUN 87 H 91 H Creatinine 15.3 H 15.3 H Glucose 103 H POC Glucose Lactic Acid Calcium 6.9 L 7.5 L Phosphorus Magnesium Total Bilirubin AST ALT Alkaline Phosphatase Total Protein Albumin Triglycerides Arterial Blood Glucose Arterial Blood Ionized Calcium Digoxin Crossmatch 12/24/20 12/24/20 12/24/20 04:00 10:29 10:29 WBC RBC 3.49 L Hgb 10.5 L Hct 31.2 L MCV MCHC RDW 17.5 H Plt Count 124 L Lymph % (Auto) 3.7 L [place] % (Auto) 9.8 H Lymph # (Auto) 0.2 L [place] # (Auto) Seg Neutrophils % 85.9 H Seg Neuts % (Manual) Lymphocytes % (Manual) Monocytes % (Manual) Seg Neutrophils # Seg Neutrophils # Man Lymphocytes # (Manual) Monocytes # (Manual) PT INR ABG pH POC ABG pCO2 28.1 L POC ABG pO2 ABG pO2 ABG HCO3 ABG O2 Saturation ABG Base Excess ABG Hemoglobin ABG Oxyhemoglobin ABG Sodium 133.9 L ABG Potassium 5.3 H ABG Chloride 108.0 H ABG Glucose Oxyhemoglobin Sodium Potassium 5.6 H Chloride Carbon Dioxide 19 L BUN 99 H Creatinine 16.9 H Glucose 52 L POC Glucose Lactic Acid Calcium 7.6 L Phosphorus Magnesium Total Bilirubin 3.50 H AST 67 H ALT 71 H Alkaline Phosphatase Total Protein 3.5 L D Albumin 2.1 L Triglycerides Arterial Blood Glucose Arterial Blood Ionized Calcium 4.0 L Digoxin Crossmatch 12/25/20 12/25/20 12/25/20 03:33 04:00 04:00 WBC 3.8 L RBC 2.90 L Hgb 8.6 L Hct 25.7 L MCV MCHC RDW 16.7 H Plt Count 113 L Lymph % (Auto) [place] % (Auto) Lymph # (Auto) [place] # (Auto) Seg Neutrophils % Seg Neuts % (Manual) Lymphocytes % (Manual) Monocytes % (Manual) Seg Neutrophils # Seg Neutrophils # Man Lymphocytes # (Manual) Monocytes # (Manual) PT INR ABG pH 7.544 H POC ABG pCO2 28.2 L POC ABG pO2 62.8 L ABG pO2 ABG HCO3 ABG O2 Saturation ABG Base Excess ABG Hemoglobin 9.3 L ABG Oxyhemoglobin 93.0 L ABG Sodium 130.3 L ABG Potassium ABG Chloride ABG Glucose 97 H Oxyhemoglobin Sodium Potassium Chloride Carbon Dioxide BUN 62 H Creatinine 11.4 H Glucose POC Glucose Lactic Acid Calcium 7.7 L Phosphorus 5.00 H Magnesium Total Bilirubin AST ALT Alkaline Phosphatase Total Protein Albumin Triglycerides Arterial Blood Glucose 97 H Arterial Blood Ionized Calcium 3.9 L Digoxin Crossmatch 12/26/20 12/26/20 12/27/20 04:46 Unknown 03:40 WBC 4.1 L RBC 2.61 L Hgb 7.8 L Hct 23.4 L MCV MCHC RDW 17.1 H Plt Count 119 L Lymph % (Auto) 5.3 L [place] % (Auto) 10.6 H Lymph # (Auto) 0.2 L [place] # (Auto) Seg Neutrophils % 78.8 H Seg Neuts % (Manual) Lymphocytes % (Manual) Monocytes % (Manual) Seg Neutrophils # Seg Neutrophils # Man Lymphocytes # (Manual) Monocytes # (Manual) PT INR ABG pH 7.333 L 7.332 L POC ABG pCO2 POC ABG pO2 ABG pO2 ABG HCO3 26.9 H ABG O2 Saturation ABG Base Excess -2.4 L ABG Hemoglobin 6.8 L 7.2 L ABG Oxyhemoglobin ABG Sodium ABG Potassium ABG Chloride ABG Glucose Oxyhemoglobin 93.0 L 93.1 L Sodium Potassium Chloride Carbon Dioxide BUN Creatinine Glucose POC Glucose Lactic Acid Calcium Phosphorus Magnesium Total Bilirubin AST ALT Alkaline Phosphatase Total Protein Albumin Triglycerides Arterial Blood Glucose Arterial Blood Ionized Calcium Digoxin Crossmatch 12/27/20 12/27/20 12/27/20 06:40 06:40 11:22 WBC 4.4 L RBC 2.49 L Hgb 7.4 L Hct 22.4 L MCV MCHC RDW 17.1 H Plt Count 111 L Lymph % (Auto) 6.7 L [place] % (Auto) 12.6 H Lymph # (Auto) 0.3 L [place] # (Auto) Seg Neutrophils % 77.6 H Seg Neuts % (Manual) Lymphocytes % (Manual) Monocytes % (Manual) Seg Neutrophils # Seg Neutrophils # Man Lymphocytes # (Manual) Monocytes # (Manual) PT INR ABG pH POC ABG pCO2 POC ABG pO2 ABG pO2 ABG HCO3 ABG O2 Saturation ABG Base Excess ABG Hemoglobin ABG Oxyhemoglobin ABG Sodium ABG Potassium ABG Chloride ABG Glucose Oxyhemoglobin Sodium Potassium Chloride Carbon Dioxide BUN 64 H Creatinine 9.8 H Glucose 147 H POC Glucose 134 H Lactic Acid Calcium 8.3 L Phosphorus 5.00 H Magnesium Total Bilirubin 3.70 H AST 72 H ALT Alkaline Phosphatase 142 H Total Protein 5.1 L D Albumin 2.9 L Triglycerides Arterial Blood Glucose Arterial Blood Ionized Calcium Digoxin Crossmatch 12/27/20 12/27/20 12/28/20 17:29 23:31 03:09 WBC RBC Hgb Hct MCV MCHC RDW Plt Count Lymph % (Auto) [place] % (Auto) Lymph # (Auto) [place] # (Auto) Seg Neutrophils % Seg Neuts % (Manual) Lymphocytes % (Manual) Monocytes % (Manual) Seg Neutrophils # Seg Neutrophils # Man Lymphocytes # (Manual) Monocytes # (Manual) PT INR ABG pH 7.474 H POC ABG pCO2 POC ABG pO2 ABG pO2 ABG HCO3 ABG O2 Saturation ABG Base Excess ABG Hemoglobin 7.8 L ABG Oxyhemoglobin ABG Sodium ABG Potassium ABG Chloride ABG Glucose Oxyhemoglobin Sodium Potassium Chloride Carbon Dioxide BUN Creatinine Glucose POC Glucose 121 H 131 H Lactic Acid Calcium Phosphorus Magnesium Total Bilirubin AST ALT Alkaline Phosphatase Total Protein Albumin Triglycerides Arterial Blood Glucose Arterial Blood Ionized Calcium Digoxin Crossmatch 12/28/20 12/28/20 12/28/20 05:37 05:40 05:40 WBC 4.3 L RBC 2.40 L Hgb 7.2 L Hct 21.5 L MCV MCHC RDW 17.4 H Plt Count 112 L Lymph % (Auto) 6.5 L [place] % (Auto) 16.7 H Lymph # (Auto) 0.3 L [place] # (Auto) Seg Neutrophils % 71.1 H Seg Neuts % (Manual) Lymphocytes % (Manual) Monocytes % (Manual) Seg Neutrophils # Seg Neutrophils # Man Lymphocytes # (Manual) Monocytes # (Manual) PT INR ABG pH POC ABG pCO2 POC ABG pO2 ABG pO2 ABG HCO3 ABG O2 Saturation ABG Base Excess ABG Hemoglobin ABG Oxyhemoglobin ABG Sodium ABG Potassium ABG Chloride ABG Glucose Oxyhemoglobin Sodium Potassium Chloride Carbon Dioxide BUN 85 H Creatinine 11.5 H Glucose 132 H POC Glucose 121 H Lactic Acid Calcium 8.2 L Phosphorus Magnesium 2.40 H Total Bilirubin 3.80 H AST 70 H ALT Alkaline Phosphatase 176 H Total Protein 5.0 L Albumin 2.9 L Triglycerides Arterial Blood Glucose Arterial Blood Ionized Calcium Digoxin Crossmatch 12/28/20 12/28/20 12/28/20 11:34 15:00 17:35 WBC RBC Hgb Hct MCV MCHC RDW Plt Count Lymph % (Auto) [place] % (Auto) Lymph # (Auto) [place] # (Auto) Seg Neutrophils % Seg Neuts % (Manual) Lymphocytes % (Manual) Monocytes % (Manual) Seg Neutrophils # Seg Neutrophils # Man Lymphocytes # (Manual) Monocytes # (Manual) PT INR ABG pH 7.461 H POC ABG pCO2 POC ABG pO2 72.2 L ABG pO2 ABG HCO3 ABG O2 Saturation ABG Base Excess ABG Hemoglobin 8.2 L ABG Oxyhemoglobin 93.6 L ABG Sodium 134.1 L ABG Potassium 3.2 L ABG Chloride ABG Glucose 135 H Oxyhemoglobin Sodium Potassium Chloride Carbon Dioxide BUN Creatinine Glucose POC Glucose 137 H 144 H Lactic Acid Calcium Phosphorus Magnesium Total Bilirubin AST ALT Alkaline Phosphatase Total Protein Albumin Triglycerides Arterial Blood Glucose 135 H Arterial Blood Ionized Calcium 4.4 L Digoxin Crossmatch 12/28/20 12/28/20 12/29/20 19:44 Unknown 00:21 WBC RBC Hgb Hct MCV MCHC RDW Plt Count Lymph % (Auto) [place] % (Auto) Lymph # (Auto) [place] # (Auto) Seg Neutrophils % Seg Neuts % (Manual) Lymphocytes % (Manual) Monocytes % (Manual) Seg Neutrophils # Seg Neutrophils # Man Lymphocytes # (Manual) Monocytes # (Manual) PT INR ABG pH 7.474 H POC ABG pCO2 POC ABG pO2 ABG pO2 ABG HCO3 ABG O2 Saturation ABG Base Excess ABG Hemoglobin 7.8 L ABG Oxyhemoglobin ABG Sodium 133.2 L ABG Potassium ABG Chloride ABG Glucose 139 H Oxyhemoglobin Sodium 135 L Potassium Chloride 96.6 L Carbon Dioxide BUN 47 H Creatinine 7.4 H Glucose 130 H POC Glucose 142 H Lactic Acid Calcium 8.3 L Phosphorus Magnesium Total Bilirubin AST ALT Alkaline Phosphatase Total Protein Albumin Triglycerides Arterial Blood Glucose 139 H Arterial Blood Ionized Calcium 4.3 L Digoxin Crossmatch 12/29/20 12/29/20 12/29/20 05:16 05:16 05:26 WBC RBC 2.53 L Hgb 7.7 L Hct 22.8 L MCV MCHC RDW 17.0 H Plt Count 130 L Lymph % (Auto) [place] % (Auto) Lymph # (Auto) [place] # (Auto) Seg Neutrophils % Seg Neuts % (Manual) 79.0 H Lymphocytes % (Manual) 9.0 L Monocytes % (Manual) Seg Neutrophils # Seg Neutrophils # Man Lymphocytes # (Manual) 0.6 L Monocytes # (Manual) PT INR ABG pH POC ABG pCO2 POC ABG pO2 ABG pO2 ABG HCO3 ABG O2 Saturation ABG Base Excess ABG Hemoglobin ABG Oxyhemoglobin ABG Sodium ABG Potassium ABG Chloride ABG Glucose Oxyhemoglobin Sodium Potassium 3.4 L Chloride 96.6 L Carbon Dioxide BUN 59 H Creatinine 8.3 H Glucose 127 H POC Glucose 141 H Lactic Acid Calcium 8.2 L Phosphorus Magnesium Total Bilirubin 3.00 H AST 88 H ALT Alkaline Phosphatase 188 H Total Protein 5.1 L Albumin 2.8 L Triglycerides Arterial Blood Glucose Arterial Blood Ionized Calcium Digoxin Crossmatch 12/29/20 12/29/20 12/29/20 11:33 17:29 23:22 WBC RBC Hgb Hct MCV MCHC RDW Plt Count Lymph % (Auto) [place] % (Auto) Lymph # (Auto) [place] # (Auto) Seg Neutrophils % Seg Neuts % (Manual) Lymphocytes % (Manual) Monocytes % (Manual) Seg Neutrophils # Seg Neutrophils # Man Lymphocytes # (Manual) Monocytes # (Manual) PT INR ABG pH POC ABG pCO2 POC ABG pO2 ABG pO2 ABG HCO3 ABG O2 Saturation ABG Base Excess ABG Hemoglobin ABG Oxyhemoglobin ABG Sodium ABG Potassium ABG Chloride ABG Glucose Oxyhemoglobin Sodium Potassium Chloride Carbon Dioxide BUN Creatinine Glucose POC Glucose 144 H 130 H 117 H Lactic Acid Calcium Phosphorus Magnesium Total Bilirubin AST ALT Alkaline Phosphatase Total Protein Albumin Triglycerides Arterial Blood Glucose Arterial Blood Ionized Calcium Digoxin Crossmatch 12/30/20 12/30/20 12/30/20 05:23 08:15 09:00 WBC RBC Hgb Hct MCV MCHC RDW Plt Count Lymph % (Auto) [place] % (Auto) Lymph # (Auto) [place] # (Auto) Seg Neutrophils % Seg Neuts % (Manual) Lymphocytes % (Manual) Monocytes % (Manual) Seg Neutrophils # Seg Neutrophils # Man Lymphocytes # (Manual) Monocytes # (Manual) PT INR ABG pH POC ABG pCO2 POC ABG pO2 ABG pO2 ABG HCO3 ABG O2 Saturation ABG Base Excess ABG Hemoglobin ABG Oxyhemoglobin ABG Sodium ABG Potassium ABG Chloride ABG Glucose Oxyhemoglobin Sodium 135 L Potassium Chloride 95.9 L Carbon Dioxide BUN 85 H Creatinine 10.6 H Glucose 128 H POC Glucose 135 H 127 H Lactic Acid Calcium 8.3 L Phosphorus Magnesium Total Bilirubin 2.40 H AST 85 H ALT Alkaline Phosphatase 216 H Total Protein 5.3 L Albumin 2.6 L Triglycerides 155 H Arterial Blood Glucose Arterial Blood Ionized Calcium Digoxin Crossmatch 12/30/20 12/30/20 12/30/20 09:00 11:53 15:49 WBC RBC 2.61 L Hgb 7.8 L Hct 23.7 L MCV MCHC RDW 17.3 H Plt Count Lymph % (Auto) [place] % (Auto) Lymph # (Auto) [place] # (Auto) Seg Neutrophils % Seg Neuts % (Manual) Lymphocytes % (Manual) Monocytes % (Manual) Seg Neutrophils # Seg Neutrophils # Man Lymphocytes # (Manual) Monocytes # (Manual) PT INR ABG pH POC ABG pCO2 POC ABG pO2 ABG pO2 ABG HCO3 ABG O2 Saturation ABG Base Excess ABG Hemoglobin ABG Oxyhemoglobin ABG Sodium ABG Potassium ABG Chloride ABG Glucose Oxyhemoglobin Sodium Potassium Chloride Carbon Dioxide BUN Creatinine Glucose POC Glucose 155 H 146 H Lactic Acid Calcium Phosphorus Magnesium Total Bilirubin AST ALT Alkaline Phosphatase Total Protein Albumin Triglycerides Arterial Blood Glucose Arterial Blood Ionized Calcium Digoxin Crossmatch 12/30/20 12/30/20 12/31/20 17:53 23:45 03:56 WBC RBC Hgb Hct MCV MCHC RDW Plt Count Lymph % (Auto) [place] % (Auto) Lymph # (Auto) [place] # (Auto) Seg Neutrophils % Seg Neuts % (Manual) Lymphocytes % (Manual) Monocytes % (Manual) Seg Neutrophils # Seg Neutrophils # Man Lymphocytes # (Manual) Monocytes # (Manual) PT INR ABG pH POC ABG pCO2 POC ABG pO2 49.4 L ABG pO2 ABG HCO3 ABG O2 Saturation ABG Base Excess ABG Hemoglobin 10.3 L ABG Oxyhemoglobin 84.2 L ABG Sodium 133.1 L ABG Potassium ABG Chloride ABG Glucose 173 H Oxyhemoglobin Sodium Potassium Chloride Carbon Dioxide BUN Creatinine Glucose POC Glucose 139 H 173 H Lactic Acid Calcium Phosphorus Magnesium Total Bilirubin AST ALT Alkaline Phosphatase Total Protein Albumin Triglycerides Arterial Blood Glucose 173 H Arterial Blood Ionized Calcium Digoxin Crossmatch 12/31/20 12/31/20 12/31/20 05:07 06:51 06:51 WBC 20.3 H RBC 3.32 L Hgb 9.8 L Hct 30.3 L D MCV MCHC RDW 17.3 H Plt Count Lymph % (Auto) [place] % (Auto) Lymph # (Auto) [place] # (Auto) Seg Neutrophils % Seg Neuts % (Manual) 87.0 H Lymphocytes % (Manual) 10.0 L Monocytes % (Manual) Seg Neutrophils # Seg Neutrophils # Man 17.7 H Lymphocytes # (Manual) Monocytes # (Manual) PT INR ABG pH POC ABG pCO2 POC ABG pO2 ABG pO2 ABG HCO3 ABG O2 Saturation ABG Base Excess ABG Hemoglobin ABG Oxyhemoglobin ABG Sodium ABG Potassium ABG Chloride ABG Glucose Oxyhemoglobin Sodium Potassium 5.2 H D Chloride Carbon Dioxide BUN 62 H Creatinine 8.4 H Glucose 116 H POC Glucose 120 H Lactic Acid Calcium Phosphorus Magnesium 1.60 L Total Bilirubin AST ALT Alkaline Phosphatase Total Protein Albumin Triglycerides Arterial Blood Glucose Arterial Blood Ionized Calcium Digoxin Crossmatch 12/31/20 12/31/20 12/31/20 09:38 12:19 12:22 WBC RBC Hgb Hct MCV MCHC RDW Plt Count Lymph % (Auto) [place] % (Auto) Lymph # (Auto) [place] # (Auto) Seg Neutrophils % Seg Neuts % (Manual) Lymphocytes % (Manual) Monocytes % (Manual) Seg Neutrophils # Seg Neutrophils # Man Lymphocytes # (Manual) Monocytes # (Manual) PT INR ABG pH POC ABG pCO2 POC ABG pO2 ABG pO2 354.0 H ABG HCO3 ABG O2 Saturation 99.6 H ABG Base Excess ABG Hemoglobin 9.1 L ABG Oxyhemoglobin ABG Sodium ABG Potassium ABG Chloride ABG Glucose Oxyhemoglobin Sodium Potassium 5.2 H Chloride Carbon Dioxide BUN Creatinine Glucose POC Glucose 132 H Lactic Acid Calcium Phosphorus Magnesium Total Bilirubin AST ALT Alkaline Phosphatase Total Protein Albumin Triglycerides Arterial Blood Glucose Arterial Blood Ionized Calcium Digoxin Crossmatch 12/31/20 01/01/21 01/01/21 23:23 03:03 05:04 WBC RBC Hgb Hct MCV MCHC RDW Plt Count Lymph % (Auto) [place] % (Auto) Lymph # (Auto) [place] # (Auto) Seg Neutrophils % Seg Neuts % (Manual) Lymphocytes % (Manual) Monocytes % (Manual) Seg Neutrophils # Seg Neutrophils # Man Lymphocytes # (Manual) Monocytes # (Manual) PT INR ABG pH POC ABG pCO2 POC ABG pO2 79.6 L ABG pO2 ABG HCO3 ABG O2 Saturation ABG Base Excess ABG Hemoglobin 9.2 L ABG Oxyhemoglobin ABG Sodium 131.6 L ABG Potassium 5.8 H ABG Chloride ABG Glucose 177 H Oxyhemoglobin Sodium Potassium Chloride Carbon Dioxide BUN Creatinine Glucose POC Glucose 174 H 167 H Lactic Acid Calcium Phosphorus Magnesium Total Bilirubin AST ALT Alkaline Phosphatase Total Protein Albumin Triglycerides Arterial Blood Glucose 177 H Arterial Blood Ionized Calcium Digoxin Crossmatch 01/01/21 01/01/21 01/01/21 07:31 07:31 11:31 WBC 26.1 H RBC 2.95 L Hgb 8.6 L Hct 27.1 L MCV MCHC RDW 18.2 H Plt Count Lymph % (Auto) [place] % (Auto) Lymph # (Auto) [place] # (Auto) Seg Neutrophils % Seg Neuts % (Manual) 96.0 H Lymphocytes % (Manual) 4.0 L Monocytes % (Manual) Seg Neutrophils # Seg Neutrophils # Man 25.1 H Lymphocytes # (Manual) 1.0 L Monocytes # (Manual) PT INR ABG pH POC ABG pCO2 POC ABG pO2 ABG pO2 ABG HCO3 ABG O2 Saturation ABG Base Excess ABG Hemoglobin ABG Oxyhemoglobin ABG Sodium ABG Potassium ABG Chloride ABG Glucose Oxyhemoglobin Sodium Potassium 6.0 H Chloride Carbon Dioxide 21 L BUN 89 H Creatinine 10.5 H Glucose 179 H POC Glucose Lactic Acid Calcium Phosphorus Magnesium Total Bilirubin AST ALT Alkaline Phosphatase Total Protein Albumin Triglycerides Arterial Blood Glucose Arterial Blood Ionized Calcium Digoxin Crossmatch See Detail 01/01/21 01/01/21 01/01/21 11:51 12:45 16:52 WBC RBC Hgb Hct MCV MCHC RDW Plt Count Lymph % (Auto) [place] % (Auto) Lymph # (Auto) [place] # (Auto) Seg Neutrophils % Seg Neuts % (Manual) Lymphocytes % (Manual) Monocytes % (Manual) Seg Neutrophils # Seg Neutrophils # Man Lymphocytes # (Manual) Monocytes # (Manual) PT 16.9 H INR 1.39 H ABG pH POC ABG pCO2 POC ABG pO2 ABG pO2 ABG HCO3 ABG O2 Saturation ABG Base Excess ABG Hemoglobin ABG Oxyhemoglobin ABG Sodium ABG Potassium ABG Chloride ABG Glucose Oxyhemoglobin Sodium Potassium Chloride Carbon Dioxide BUN Creatinine Glucose POC Glucose 157 H 177 H Lactic Acid Calcium Phosphorus Magnesium Total Bilirubin AST ALT Alkaline Phosphatase Total Protein Albumin Triglycerides Arterial Blood Glucose Arterial Blood Ionized Calcium Digoxin Crossmatch 01/01/21 01/01/21 01/01/21 17:58 17:58 20:12 WBC 26.9 H RBC 3.14 L Hgb 9.3 L Hct 29.6 L MCV MCHC RDW 17.5 H Plt Count Lymph % (Auto) [place] % (Auto) Lymph # (Auto) [place] # (Auto) Seg Neutrophils % Seg Neuts % (Manual) 84.0 H Lymphocytes % (Manual) 4.0 L Monocytes % (Manual) 12.0 H Seg Neutrophils # Seg Neutrophils # Man 22.6 H Lymphocytes # (Manual) 1.1 L Monocytes # (Manual) 3.2 H PT INR ABG pH POC ABG pCO2 POC ABG pO2 ABG pO2 ABG HCO3 ABG O2 Saturation ABG Base Excess ABG Hemoglobin ABG Oxyhemoglobin ABG Sodium ABG Potassium ABG Chloride ABG Glucose Oxyhemoglobin Sodium 136 L Potassium 6.2 H* Chloride Carbon Dioxide 21 L BUN 92 H Creatinine 10.8 H Glucose 171 H POC Glucose 288 H Lactic Acid Calcium Phosphorus Magnesium Total Bilirubin 2.10 H AST 223 H ALT 100 H Alkaline Phosphatase 206 H Total Protein 4.8 L Albumin 1.9 L Triglycerides Arterial Blood Glucose Arterial Blood Ionized Calcium Digoxin Crossmatch 01/02/21 01/02/21 01/02/21 00:12 00:45 03:05 WBC RBC Hgb Hct MCV MCHC RDW Plt Count Lymph % (Auto) [place] % (Auto) Lymph # (Auto) [place] # (Auto) Seg Neutrophils % Seg Neuts % (Manual) Lymphocytes % (Manual) Monocytes % (Manual) Seg Neutrophils # Seg Neutrophils # Man Lymphocytes # (Manual) Monocytes # (Manual) PT INR ABG pH POC ABG pCO2 POC ABG pO2 81.8 L ABG pO2 ABG HCO3 ABG O2 Saturation ABG Base Excess ABG Hemoglobin 8.0 L ABG Oxyhemoglobin ABG Sodium 129.8 L ABG Potassium 5.4 H ABG Chloride ABG Glucose 257 H Oxyhemoglobin Sodium 136 L Potassium 5.8 H Chloride 96.6 L Carbon Dioxide BUN 95 H Creatinine 11.2 H Glucose 238 H POC Glucose 223 H Lactic Acid Calcium Phosphorus Magnesium Total Bilirubin AST ALT Alkaline Phosphatase Total Protein Albumin Triglycerides Arterial Blood Glucose 257 H Arterial Blood Ionized Calcium 4.0 L Digoxin Crossmatch 01/02/21 01/02/21 01/02/21 06:25 08:00 08:00 WBC 17.5 H RBC 2.31 L Hgb 6.7 L Hct 22.1 L D MCV 96 H MCHC 30 L RDW 18.4 H Plt Count Lymph % (Auto) [place] % (Auto) Lymph # (Auto) [place] # (Auto) Seg Neutrophils % Seg Neuts % (Manual) Lymphocytes % (Manual) Monocytes % (Manual) Seg Neutrophils # Seg Neutrophils # Man Lymphocytes # (Manual) Monocytes # (Manual) PT INR ABG pH POC ABG pCO2 POC ABG pO2 ABG pO2 ABG HCO3 ABG O2 Saturation ABG Base Excess ABG Hemoglobin ABG Oxyhemoglobin ABG Sodium ABG Potassium ABG Chloride ABG Glucose Oxyhemoglobin Sodium 134 L Potassium 5.3 H Chloride 92.9 L Carbon Dioxide BUN 101 H Creatinine 10.9 H Glucose 560 H* POC Glucose 239 H Lactic Acid Calcium 7.6 L Phosphorus 6.50 H Magnesium Total Bilirubin AST ALT Alkaline Phosphatase Total Protein Albumin Triglycerides Arterial Blood Glucose Arterial Blood Ionized Calcium Digoxin Crossmatch 01/02/21 01/02/21 01/02/21 11:26 15:00 17:57 WBC RBC Hgb Hct MCV MCHC RDW Plt Count Lymph % (Auto) [place] % (Auto) Lymph # (Auto) [place] # (Auto) Seg Neutrophils % Seg Neuts % (Manual) Lymphocytes % (Manual) Monocytes % (Manual) Seg Neutrophils # Seg Neutrophils # Man Lymphocytes # (Manual) Monocytes # (Manual) PT INR ABG pH POC ABG pCO2 POC ABG pO2 ABG pO2 ABG HCO3 ABG O2 Saturation ABG Base Excess ABG Hemoglobin ABG Oxyhemoglobin ABG Sodium ABG Potassium ABG Chloride ABG Glucose Oxyhemoglobin Sodium Potassium Chloride Carbon Dioxide BUN Creatinine Glucose 241 H POC Glucose 205 H 272 H Lactic Acid Calcium Phosphorus Magnesium Total Bilirubin AST ALT Alkaline Phosphatase Total Protein Albumin Triglycerides Arterial Blood Glucose Arterial Blood Ionized Calcium Digoxin Crossmatch 01/02/21 01/02/21 01/03/21 23:25 23:43 03:45 WBC RBC Hgb Hct MCV MCHC RDW Plt Count Lymph % (Auto) [place] % (Auto) Lymph # (Auto) [place] # (Auto) Seg Neutrophils % Seg Neuts % (Manual) Lymphocytes % (Manual) Monocytes % (Manual) Seg Neutrophils # Seg Neutrophils # Man Lymphocytes # (Manual) Monocytes # (Manual) PT INR ABG pH POC ABG pCO2 48.3 H POC ABG pO2 134.4 H 79.7 L ABG pO2 ABG HCO3 ABG O2 Saturation ABG Base Excess ABG Hemoglobin 7.7 L 8.6 L ABG Oxyhemoglobin ABG Sodium 131.8 L 130.4 L ABG Potassium ABG Chloride 97.0 L ABG Glucose 218 H 238 H Oxyhemoglobin Sodium Potassium Chloride Carbon Dioxide BUN Creatinine Glucose POC Glucose 218 H Lactic Acid Calcium Phosphorus Magnesium Total Bilirubin AST ALT Alkaline Phosphatase Total Protein Albumin Triglycerides Arterial Blood Glucose 218 H 238 H Arterial Blood Ionized Calcium 4.1 L 4.0 L Digoxin Crossmatch 01/03/21 01/03/21 01/03/21 04:37 04:37 05:39 WBC 15.2 H RBC 2.38 L Hgb 7.3 L Hct 21.6 L MCV MCHC RDW 16.6 H Plt Count Lymph % (Auto) [place] % (Auto) Lymph # (Auto) [place] # (Auto) Seg Neutrophils % Seg Neuts % (Manual) Lymphocytes % (Manual) Monocytes % (Manual) Seg Neutrophils # Seg Neutrophils # Man Lymphocytes # (Manual) Monocytes # (Manual) PT INR ABG pH POC ABG pCO2 POC ABG pO2 ABG pO2 ABG HCO3 ABG O2 Saturation ABG Base Excess ABG Hemoglobin ABG Oxyhemoglobin ABG Sodium ABG Potassium ABG Chloride ABG Glucose Oxyhemoglobin Sodium 136 L Potassium Chloride 94.5 L Carbon Dioxide BUN 69 H Creatinine 8.0 H Glucose 219 H POC Glucose 222 H Lactic Acid Calcium 7.8 L Phosphorus 4.80 H D Magnesium Total Bilirubin AST ALT Alkaline Phosphatase Total Protein Albumin Triglycerides Arterial Blood Glucose Arterial Blood Ionized Calcium Digoxin Crossmatch 01/03/21 01/03/21 01/03/21 11:29 18:49 23:37 WBC RBC Hgb Hct MCV MCHC RDW Plt Count Lymph % (Auto) [place] % (Auto) Lymph # (Auto) [place] # (Auto) Seg Neutrophils % Seg Neuts % (Manual) Lymphocytes % (Manual) Monocytes % (Manual) Seg Neutrophils # Seg Neutrophils # Man Lymphocytes # (Manual) Monocytes # (Manual) PT INR ABG pH POC ABG pCO2 POC ABG pO2 ABG pO2 ABG HCO3 ABG O2 Saturation ABG Base Excess ABG Hemoglobin ABG Oxyhemoglobin ABG Sodium ABG Potassium ABG Chloride ABG Glucose Oxyhemoglobin Sodium Potassium Chloride Carbon Dioxide BUN Creatinine Glucose POC Glucose 232 H 129 H 140 H Lactic Acid Calcium Phosphorus Magnesium Total Bilirubin AST ALT Alkaline Phosphatase Total Protein Albumin Triglycerides Arterial Blood Glucose Arterial Blood Ionized Calcium Digoxin Crossmatch 01/04/21 01/04/21 01/04/21 03:22 04:38 04:38 WBC 11.1 H RBC 2.89 L Hgb 8.9 L Hct 26.2 L MCV MCHC RDW 16.1 H Plt Count Lymph % (Auto) [place] % (Auto) Lymph # (Auto) [place] # (Auto) Seg Neutrophils % Seg Neuts % (Manual) Lymphocytes % (Manual) Monocytes % (Manual) Seg Neutrophils # Seg Neutrophils # Man Lymphocytes # (Manual) Monocytes # (Manual) PT INR ABG pH POC ABG pCO2 POC ABG pO2 82.3 L ABG pO2 ABG HCO3 ABG O2 Saturation ABG Base Excess ABG Hemoglobin 8.9 L ABG Oxyhemoglobin ABG Sodium 130.5 L ABG Potassium ABG Chloride ABG Glucose 124 H Oxyhemoglobin Sodium Potassium Chloride 95.5 L Carbon Dioxide BUN 87 H Creatinine 9.7 H Glucose 118 H POC Glucose Lactic Acid Calcium 7.7 L Phosphorus Magnesium Total Bilirubin AST ALT Alkaline Phosphatase Total Protein Albumin Triglycerides Arterial Blood Glucose 124 H Arterial Blood Ionized Calcium 3.5 L Digoxin Crossmatch 01/04/21 01/04/21 01/04/21 05:39 12:04 18:04 WBC RBC Hgb Hct MCV MCHC RDW Plt Count Lymph % (Auto) [place] % (Auto) Lymph # (Auto) [place] # (Auto) Seg Neutrophils % Seg Neuts % (Manual) Lymphocytes % (Manual) Monocytes % (Manual) Seg Neutrophils # Seg Neutrophils # Man Lymphocytes # (Manual) Monocytes # (Manual) PT INR ABG pH POC ABG pCO2 POC ABG pO2 ABG pO2 ABG HCO3 ABG O2 Saturation ABG Base Excess ABG Hemoglobin ABG Oxyhemoglobin ABG Sodium ABG Potassium ABG Chloride ABG Glucose Oxyhemoglobin Sodium Potassium Chloride Carbon Dioxide BUN Creatinine Glucose POC Glucose 134 H 125 H 131 H Lactic Acid Calcium Phosphorus Magnesium Total Bilirubin AST ALT Alkaline Phosphatase Total Protein Albumin Triglycerides Arterial Blood Glucose Arterial Blood Ionized Calcium Digoxin Crossmatch 01/04/21 01/05/21 01/05/21 23:41 03:23 04:49 WBC RBC Hgb Hct MCV MCHC RDW Plt Count Lymph % (Auto) [place] % (Auto) Lymph # (Auto) [place] # (Auto) Seg Neutrophils % Seg Neuts % (Manual) Lymphocytes % (Manual) Monocytes % (Manual) Seg Neutrophils # Seg Neutrophils # Man Lymphocytes # (Manual) Monocytes # (Manual) PT INR ABG pH POC ABG pCO2 POC ABG pO2 62.8 L ABG pO2 ABG HCO3 ABG O2 Saturation ABG Base Excess ABG Hemoglobin 9.5 L ABG Oxyhemoglobin 92.0 L ABG Sodium 130.1 L ABG Potassium ABG Chloride ABG Glucose 148 H Oxyhemoglobin Sodium Potassium Chloride 96.9 L Carbon Dioxide BUN 57 H Creatinine 6.7 H Glucose 135 H POC Glucose 132 H Lactic Acid Calcium 8.0 L Phosphorus Magnesium Total Bilirubin AST ALT Alkaline Phosphatase Total Protein Albumin Triglycerides Arterial Blood Glucose 148 H Arterial Blood Ionized Calcium 4.1 L Digoxin Crossmatch 01/05/21 01/05/21 01/05/21 05:04 11:48 12:39 WBC RBC 3.03 L Hgb 9.3 L Hct 27.6 L MCV MCHC RDW 16.5 H Plt Count Lymph % (Auto) [place] % (Auto) Lymph # (Auto) [place] # (Auto) Seg Neutrophils % Seg Neuts % (Manual) Lymphocytes % (Manual) Monocytes % (Manual) Seg Neutrophils # Seg Neutrophils # Man Lymphocytes # (Manual) Monocytes # (Manual) PT INR ABG pH POC ABG pCO2 POC ABG pO2 ABG pO2 ABG HCO3 ABG O2 Saturation ABG Base Excess ABG Hemoglobin ABG Oxyhemoglobin ABG Sodium ABG Potassium ABG Chloride ABG Glucose Oxyhemoglobin Sodium Potassium Chloride Carbon Dioxide BUN Creatinine Glucose POC Glucose 147 H 162 H Lactic Acid Calcium Phosphorus Magnesium Total Bilirubin AST ALT Alkaline Phosphatase Total Protein Albumin Triglycerides Arterial Blood Glucose Arterial Blood Ionized Calcium Digoxin Crossmatch 01/05/21 01/05/21 01/06/21 17:50 23:32 04:15 WBC RBC Hgb Hct MCV MCHC RDW Plt Count Lymph % (Auto) [place] % (Auto) Lymph # (Auto) [place] # (Auto) Seg Neutrophils % Seg Neuts % (Manual) Lymphocytes % (Manual) Monocytes % (Manual) Seg Neutrophils # Seg Neutrophils # Man Lymphocytes # (Manual) Monocytes # (Manual) PT INR ABG pH POC ABG pCO2 POC ABG pO2 ABG pO2 191.0 H ABG HCO3 ABG O2 Saturation 99.2 H ABG Base Excess ABG Hemoglobin 9.0 L ABG Oxyhemoglobin ABG Sodium ABG Potassium ABG Chloride ABG Glucose Oxyhemoglobin Sodium Potassium Chloride Carbon Dioxide BUN Creatinine Glucose POC Glucose 155 H 115 H Lactic Acid Calcium Phosphorus Magnesium Total Bilirubin AST ALT Alkaline Phosphatase Total Protein Albumin Triglycerides Arterial Blood Glucose Arterial Blood Ionized Calcium Digoxin Crossmatch 01/06/21 01/06/21 01/06/21 04:45 05:56 07:03 WBC RBC 2.95 L Hgb 9.1 L Hct 26.8 L MCV MCHC RDW 16.8 H Plt Count Lymph % (Auto) [place] % (Auto) Lymph # (Auto) [place] # (Auto) Seg Neutrophils % Seg Neuts % (Manual) Lymphocytes % (Manual) Monocytes % (Manual) Seg Neutrophils # Seg Neutrophils # Man Lymphocytes # (Manual) Monocytes # (Manual) PT INR ABG pH POC ABG pCO2 POC ABG pO2 ABG pO2 ABG HCO3 ABG O2 Saturation ABG Base Excess ABG Hemoglobin ABG Oxyhemoglobin ABG Sodium ABG Potassium ABG Chloride ABG Glucose Oxyhemoglobin Sodium 135 L Potassium Chloride 95.9 L Carbon Dioxide BUN 82 H Creatinine 8.7 H Glucose 127 H POC Glucose 136 H Lactic Acid Calcium 8.3 L Phosphorus Magnesium Total Bilirubin AST ALT Alkaline Phosphatase Total Protein Albumin Triglycerides Arterial Blood Glucose Arterial Blood Ionized Calcium Digoxin Crossmatch 01/06/21 01/06/21 01/06/21 07:10 11:04 13:38 WBC RBC Hgb Hct MCV MCHC RDW Plt Count Lymph % (Auto) [place] % (Auto) Lymph # (Auto) [place] # (Auto) Seg Neutrophils % Seg Neuts % (Manual) Lymphocytes % (Manual) Monocytes % (Manual) Seg Neutrophils # Seg Neutrophils # Man Lymphocytes # (Manual) Monocytes # (Manual) PT INR ABG pH POC ABG pCO2 POC ABG pO2 ABG pO2 ABG HCO3 ABG O2 Saturation ABG Base Excess ABG Hemoglobin ABG Oxyhemoglobin ABG Sodium ABG Potassium ABG Chloride ABG Glucose Oxyhemoglobin Sodium Potassium Chloride Carbon Dioxide BUN Creatinine Glucose POC Glucose 178 H 155 H Lactic Acid Calcium Phosphorus Magnesium Total Bilirubin AST ALT Alkaline Phosphatase Total Protein Albumin Triglycerides Arterial Blood Glucose Arterial Blood Ionized Calcium Digoxin Crossmatch See Detail 01/06/21 01/06/21 01/07/21 17:35 22:21 03:07 WBC RBC Hgb Hct MCV MCHC RDW Plt Count Lymph % (Auto) [place] % (Auto) Lymph # (Auto) [place] # (Auto) Seg Neutrophils % Seg Neuts % (Manual) Lymphocytes % (Manual) Monocytes % (Manual) Seg Neutrophils # Seg Neutrophils # Man Lymphocytes # (Manual) Monocytes # (Manual) PT INR ABG pH POC ABG pCO2 POC ABG pO2 ABG pO2 ABG HCO3 ABG O2 Saturation ABG Base Excess ABG Hemoglobin 11.9 L ABG Oxyhemoglobin ABG Sodium 135.6 L ABG Potassium ABG Chloride ABG Glucose 181 H Oxyhemoglobin Sodium Potassium Chloride Carbon Dioxide BUN Creatinine Glucose POC Glucose 138 H 202 H Lactic Acid Calcium Phosphorus Magnesium Total Bilirubin AST ALT Alkaline Phosphatase Total Protein Albumin Triglycerides Arterial Blood Glucose 181 H Arterial Blood Ionized Calcium 4.3 L Digoxin Crossmatch 01/07/21 01/07/21 01/07/21 04:50 05:21 08:37 WBC 12.4 H RBC Hgb 11.1 L Hct 33.3 L D MCV MCHC RDW 17.0 H Plt Count Lymph % (Auto) 3.2 L [place] % (Auto) 9.4 H Lymph # (Auto) 0.4 L [place] # (Auto) 1.2 H Seg Neutrophils % 86.6 H Seg Neuts % (Manual) Lymphocytes % (Manual) Monocytes % (Manual) Seg Neutrophils # 10.7 H Seg Neutrophils # Man Lymphocytes # (Manual) Monocytes # (Manual) PT INR ABG pH POC ABG pCO2 POC ABG pO2 ABG pO2 ABG HCO3 ABG O2 Saturation ABG Base Excess ABG Hemoglobin ABG Oxyhemoglobin ABG Sodium ABG Potassium ABG Chloride ABG Glucose Oxyhemoglobin Sodium Potassium Chloride Carbon Dioxide BUN 60 H Creatinine 6.3 H Glucose 154 H POC Glucose 177 H Lactic Acid Calcium 8.3 L Phosphorus Magnesium Total Bilirubin AST ALT Alkaline Phosphatase Total Protein Albumin Triglycerides Arterial Blood Glucose Arterial Blood Ionized Calcium Digoxin Crossmatch 01/07/21 01/07/21 01/07/21 11:21 12:19 17:11 WBC RBC Hgb Hct MCV MCHC RDW Plt Count Lymph % (Auto) [place] % (Auto) Lymph # (Auto) [place] # (Auto) Seg Neutrophils % Seg Neuts % (Manual) Lymphocytes % (Manual) Monocytes % (Manual) Seg Neutrophils # Seg Neutrophils # Man Lymphocytes # (Manual) Monocytes # (Manual) PT INR ABG pH POC ABG pCO2 POC ABG pO2 ABG pO2 ABG HCO3 ABG O2 Saturation ABG Base Excess ABG Hemoglobin ABG Oxyhemoglobin ABG Sodium ABG Potassium ABG Chloride ABG Glucose Oxyhemoglobin Sodium Potassium Chloride Carbon Dioxide BUN Creatinine Glucose POC Glucose 144 H 137 H 119 H Lactic Acid Calcium Phosphorus Magnesium Total Bilirubin AST ALT Alkaline Phosphatase Total Protein Albumin Triglycerides Arterial Blood Glucose Arterial Blood Ionized Calcium Digoxin Crossmatch 01/07/21 01/07/21 01/08/21 17:14 23:39 04:34 WBC RBC Hgb Hct MCV MCHC RDW Plt Count Lymph % (Auto) [place] % (Auto) Lymph # (Auto) [place] # (Auto) Seg Neutrophils % Seg Neuts % (Manual) Lymphocytes % (Manual) Monocytes % (Manual) Seg Neutrophils # Seg Neutrophils # Man Lymphocytes # (Manual) Monocytes # (Manual) PT INR ABG pH 7.345 L POC ABG pCO2 POC ABG pO2 ABG pO2 67.4 L ABG HCO3 ABG O2 Saturation 94.3 L ABG Base Excess -3.9 L ABG Hemoglobin 8.9 L ABG Oxyhemoglobin ABG Sodium ABG Potassium ABG Chloride ABG Glucose Oxyhemoglobin 92.3 L Sodium Potassium Chloride Carbon Dioxide 20 L BUN 93 H Creatinine 8.8 H Glucose 120 H POC Glucose 129 H Lactic Acid Calcium Phosphorus Magnesium Total Bilirubin AST ALT Alkaline Phosphatase 133 H Total Protein 5.4 L Albumin 1.9 L Triglycerides Arterial Blood Glucose Arterial Blood Ionized Calcium Digoxin Crossmatch 01/08/21 01/08/21 01/08/21 05:26 11:38 17:19 WBC RBC Hgb Hct MCV MCHC RDW Plt Count Lymph % (Auto) [place] % (Auto) Lymph # (Auto) [place] # (Auto) Seg Neutrophils % Seg Neuts % (Manual) Lymphocytes % (Manual) Monocytes % (Manual) Seg Neutrophils # Seg Neutrophils # Man Lymphocytes # (Manual) Monocytes # (Manual) PT INR ABG pH POC ABG pCO2 POC ABG pO2 ABG pO2 ABG HCO3 ABG O2 Saturation ABG Base Excess ABG Hemoglobin ABG Oxyhemoglobin ABG Sodium ABG Potassium ABG Chloride ABG Glucose Oxyhemoglobin Sodium Potassium Chloride Carbon Dioxide BUN Creatinine Glucose POC Glucose 125 H 146 H 136 H Lactic Acid Calcium Phosphorus Magnesium Total Bilirubin AST ALT Alkaline Phosphatase Total Protein Albumin Triglycerides Arterial Blood Glucose Arterial Blood Ionized Calcium Digoxin Crossmatch 01/08/21 01/09/21 01/09/21 23:52 05:13 05:21 WBC RBC Hgb Hct MCV MCHC RDW Plt Count Lymph % (Auto) [place] % (Auto) Lymph # (Auto) [place] # (Auto) Seg Neutrophils % Seg Neuts % (Manual) Lymphocytes % (Manual) Monocytes % (Manual) Seg Neutrophils # Seg Neutrophils # Man Lymphocytes # (Manual) Monocytes # (Manual) PT INR ABG pH POC ABG pCO2 POC ABG pO2 ABG pO2 ABG HCO3 ABG O2 Saturation ABG Base Excess ABG Hemoglobin ABG Oxyhemoglobin ABG Sodium ABG Potassium ABG Chloride ABG Glucose Oxyhemoglobin Sodium Potassium Chloride Carbon Dioxide 16 L BUN 123 H Creatinine 10.8 H Glucose 145 H POC Glucose 143 H 144 H Lactic Acid Calcium Phosphorus 5.00 H D Magnesium 2.40 H Total Bilirubin AST ALT Alkaline Phosphatase Total Protein Albumin Triglycerides Arterial Blood Glucose Arterial Blood Ionized Calcium Digoxin Crossmatch 01/09/21 01/09/21 01/09/21 12:08 17:20 23:56 WBC RBC Hgb Hct MCV MCHC RDW Plt Count Lymph % (Auto) [place] % (Auto) Lymph # (Auto) [place] # (Auto) Seg Neutrophils % Seg Neuts % (Manual) Lymphocytes % (Manual) Monocytes % (Manual) Seg Neutrophils # Seg Neutrophils # Man Lymphocytes # (Manual) Monocytes # (Manual) PT INR ABG pH POC ABG pCO2 POC ABG pO2 ABG pO2 ABG HCO3 ABG O2 Saturation ABG Base Excess ABG Hemoglobin ABG Oxyhemoglobin ABG Sodium ABG Potassium ABG Chloride ABG Glucose Oxyhemoglobin Sodium Potassium Chloride Carbon Dioxide BUN Creatinine Glucose POC Glucose 153 H 160 H 158 H Lactic Acid Calcium Phosphorus Magnesium Total Bilirubin AST ALT Alkaline Phosphatase Total Protein Albumin Triglycerides Arterial Blood Glucose Arterial Blood Ionized Calcium Digoxin Crossmatch 01/10/21 01/10/21 01/10/21 04:52 05:44 07:41 WBC RBC Hgb Hct MCV MCHC RDW Plt Count Lymph % (Auto) [place] % (Auto) Lymph # (Auto) [place] # (Auto) Seg Neutrophils % Seg Neuts % (Manual) Lymphocytes % (Manual) Monocytes % (Manual) Seg Neutrophils # Seg Neutrophils # Man Lymphocytes # (Manual) Monocytes # (Manual) PT INR ABG pH POC ABG pCO2 POC ABG pO2 ABG pO2 ABG HCO3 ABG O2 Saturation ABG Base Excess ABG Hemoglobin ABG Oxyhemoglobin ABG Sodium ABG Potassium ABG Chloride ABG Glucose Oxyhemoglobin Sodium 135 L Potassium 3.5 L D Chloride 95.0 L Carbon Dioxide 21 L BUN 93 H Creatinine 8.3 H Glucose 127 H POC Glucose 135 H 157 H Lactic Acid Calcium Phosphorus Magnesium Total Bilirubin AST ALT Alkaline Phosphatase Total Protein Albumin Triglycerides Arterial Blood Glucose Arterial Blood Ionized Calcium Digoxin Crossmatch 01/10/21 01/10/21 01/10/21 09:26 12:03 17:44 WBC 18.2 H RBC 3.14 L Hgb 9.7 L Hct 28.2 L MCV MCHC RDW 16.5 H Plt Count Lymph % (Auto) [place] % (Auto) Lymph # (Auto) [place] # (Auto) Seg Neutrophils % Seg Neuts % (Manual) 95.0 H Lymphocytes % (Manual) 3.0 L Monocytes % (Manual) Seg Neutrophils # Seg Neutrophils # Man 17.3 H Lymphocytes # (Manual) 0.5 L Monocytes # (Manual) PT INR ABG pH POC ABG pCO2 POC ABG pO2 ABG pO2 ABG HCO3 ABG O2 Saturation ABG Base Excess ABG Hemoglobin ABG Oxyhemoglobin ABG Sodium ABG Potassium ABG Chloride ABG Glucose Oxyhemoglobin Sodium Potassium Chloride Carbon Dioxide BUN Creatinine Glucose POC Glucose 163 H 171 H Lactic Acid Calcium Phosphorus Magnesium Total Bilirubin AST ALT Alkaline Phosphatase Total Protein Albumin Triglycerides Arterial Blood Glucose Arterial Blood Ionized Calcium Digoxin Crossmatch 01/10/21 01/11/21 01/11/21 23:50 05:18 05:18 WBC RBC Hgb Hct MCV MCHC RDW Plt Count Lymph % (Auto) [place] % (Auto) Lymph # (Auto) [place] # (Auto) Seg Neutrophils % Seg Neuts % (Manual) Lymphocytes % (Manual) Monocytes % (Manual) Seg Neutrophils # Seg Neutrophils # Man Lymphocytes # (Manual) Monocytes # (Manual) PT INR ABG pH POC ABG pCO2 POC ABG pO2 ABG pO2 ABG HCO3 ABG O2 Saturation ABG Base Excess ABG Hemoglobin ABG Oxyhemoglobin ABG Sodium ABG Potassium ABG Chloride ABG Glucose Oxyhemoglobin Sodium 136 L Potassium Chloride 94.6 L Carbon Dioxide 19 L BUN 145 H Creatinine 10.6 H Glucose 152 H POC Glucose 151 H Lactic Acid Calcium Phosphorus 6.00 H D Magnesium Total Bilirubin AST ALT Alkaline Phosphatase Total Protein Albumin Triglycerides Arterial Blood Glucose Arterial Blood Ionized Calcium Digoxin 0.8 L Crossmatch 01/11/21 01/11/21 01/11/21 05:18 05:19 11:28 WBC 17.4 H RBC 3.34 L Hgb 10.2 L Hct 29.7 L MCV MCHC RDW 15.9 H Plt Count Lymph % (Auto) [place] % (Auto) Lymph # (Auto) [place] # (Auto) Seg Neutrophils % Seg Neuts % (Manual) Lymphocytes % (Manual) Monocytes % (Manual) Seg Neutrophils # Seg Neutrophils # Man Lymphocytes # (Manual) Monocytes # (Manual) PT INR ABG pH POC ABG pCO2 POC ABG pO2 ABG pO2 ABG HCO3 ABG O2 Saturation ABG Base Excess ABG Hemoglobin ABG Oxyhemoglobin ABG Sodium ABG Potassium ABG Chloride ABG Glucose Oxyhemoglobin Sodium Potassium Chloride Carbon Dioxide BUN Creatinine Glucose POC Glucose 149 H 178 H Lactic Acid Calcium Phosphorus Magnesium Total Bilirubin AST ALT Alkaline Phosphatase Total Protein Albumin Triglycerides Arterial Blood Glucose Arterial Blood Ionized Calcium Digoxin Crossmatch 01/11/21 01/11/21 01/12/21 17:31 23:14 05:18 WBC RBC Hgb Hct MCV MCHC RDW Plt Count Lymph % (Auto) [place] % (Auto) Lymph # (Auto) [place] # (Auto) Seg Neutrophils % Seg Neuts % (Manual) Lymphocytes % (Manual) Monocytes % (Manual) Seg Neutrophils # Seg Neutrophils # Man Lymphocytes # (Manual) Monocytes # (Manual) PT INR ABG pH POC ABG pCO2 POC ABG pO2 ABG pO2 ABG HCO3 ABG O2 Saturation ABG Base Excess ABG Hemoglobin ABG Oxyhemoglobin ABG Sodium ABG Potassium ABG Chloride ABG Glucose Oxyhemoglobin Sodium Potassium Chloride Carbon Dioxide BUN Creatinine Glucose POC Glucose 158 H 145 H 148 H Lactic Acid Calcium Phosphorus Magnesium Total Bilirubin AST ALT Alkaline Phosphatase Total Protein Albumin Triglycerides Arterial Blood Glucose Arterial Blood Ionized Calcium Digoxin Crossmatch 01/12/21 01/12/21 01/12/21 06:50 10:45 13:34 WBC RBC Hgb Hct MCV MCHC RDW Plt Count Lymph % (Auto) [place] % (Auto) Lymph # (Auto) [place] # (Auto) Seg Neutrophils % Seg Neuts % (Manual) Lymphocytes % (Manual) Monocytes % (Manual) Seg Neutrophils # Seg Neutrophils # Man Lymphocytes # (Manual) Monocytes # (Manual) PT INR ABG pH POC ABG pCO2 POC ABG pO2 ABG pO2 ABG HCO3 ABG O2 Saturation ABG Base Excess ABG Hemoglobin ABG Oxyhemoglobin ABG Sodium ABG Potassium ABG Chloride ABG Glucose Oxyhemoglobin Sodium Potassium 2.9 L* D Chloride 94.8 L Carbon Dioxide BUN 102 H Creatinine 8.3 H Glucose 139 H POC Glucose 151 H 134 H Lactic Acid Calcium 8.1 L Phosphorus 5.00 H Magnesium Total Bilirubin AST ALT Alkaline Phosphatase Total Protein Albumin Triglycerides Arterial Blood Glucose Arterial Blood Ionized Calcium Digoxin Crossmatch 05/01/12/21 01/13/21 16:59 23:06 03:45 WBC RBC Hgb Hct MCV MCHC RDW Plt Count Lymph % (Auto) [place] % (Auto) Lymph # (Auto) [place] # (Auto) Seg Neutrophils % Seg Neuts % (Manual) Lymphocytes % (Manual) Monocytes % (Manual) Seg Neutrophils # Seg Neutrophils # Man Lymphocytes # (Manual) Monocytes # (Manual) PT INR ABG pH POC ABG pCO2 POC ABG pO2 ABG pO2 ABG HCO3 ABG O2 Saturation ABG Base Excess ABG Hemoglobin ABG Oxyhemoglobin ABG Sodium ABG Potassium ABG Chloride ABG Glucose Oxyhemoglobin Sodium 136 L Potassium 3.4 L Chloride 92.6 L Carbon Dioxide BUN 134 H Creatinine 10.4 H Glucose 126 H POC Glucose 108 H 135 H Lactic Acid Calcium 8.3 L Phosphorus 5.60 H Magnesium 1.50 L Total Bilirubin AST ALT Alkaline Phosphatase Total Protein Albumin Triglycerides Arterial Blood Glucose Arterial Blood Ionized Calcium Digoxin Crossmatch 01/13/21 01/13/21 01/13/21 03:45 05:55 11:59 WBC 17.6 H RBC 3.33 L Hgb 10.2 L Hct 29.5 L MCV MCHC 35 H RDW 15.5 H Plt Count Lymph % (Auto) 4.4 L [place] % (Auto) 10.3 H Lymph # (Auto) 0.8 L [place] # (Auto) 1.8 H Seg Neutrophils % 84.2 H Seg Neuts % (Manual) Lymphocytes % (Manual) Monocytes % (Manual) Seg Neutrophils # 14.8 H Seg Neutrophils # Man Lymphocytes # (Manual) Monocytes # (Manual) PT INR ABG pH POC ABG pCO2 POC ABG pO2 ABG pO2 ABG HCO3 ABG O2 Saturation ABG Base Excess ABG Hemoglobin ABG Oxyhemoglobin ABG Sodium ABG Potassium ABG Chloride ABG Glucose Oxyhemoglobin Sodium Potassium Chloride Carbon Dioxide BUN Creatinine Glucose POC Glucose 134 H 141 H Lactic Acid Calcium Phosphorus Magnesium Total Bilirubin AST ALT Alkaline Phosphatase Total Protein Albumin Triglycerides Arterial Blood Glucose Arterial Blood Ionized Calcium Digoxin Crossmatch 01/13/21 01/14/21 01/14/21 23:09 05:39 05:57 WBC RBC Hgb Hct MCV MCHC RDW Plt Count Lymph % (Auto) [place] % (Auto) Lymph # (Auto) [place] # (Auto) Seg Neutrophils % Seg Neuts % (Manual) Lymphocytes % (Manual) Monocytes % (Manual) Seg Neutrophils # Seg Neutrophils # Man Lymphocytes # (Manual) Monocytes # (Manual) PT INR ABG pH POC ABG pCO2 POC ABG pO2 ABG pO2 ABG HCO3 ABG O2 Saturation ABG Base Excess ABG Hemoglobin ABG Oxyhemoglobin ABG Sodium ABG Potassium ABG Chloride ABG Glucose Oxyhemoglobin Sodium Potassium Chloride 97.6 L Carbon Dioxide BUN 81 H Creatinine 7.6 H Glucose 193 H POC Glucose 106 H 190 H Lactic Acid Calcium 8.2 L Phosphorus 4.60 H Magnesium Total Bilirubin AST ALT Alkaline Phosphatase Total Protein Albumin Triglycerides Arterial Blood Glucose Arterial Blood Ionized Calcium Digoxin Crossmatch 01/14/21 01/14/21 01/14/21 10:00 16:56 16:59 WBC 17.0 H RBC 3.10 L Hgb 9.6 L Hct 27.4 L MCV MCHC 35 H RDW 15.6 H Plt Count Lymph % (Auto) [place] % (Auto) Lymph # (Auto) [place] # (Auto) Seg Neutrophils % Seg Neuts % (Manual) Lymphocytes % (Manual) Monocytes % (Manual) Seg Neutrophils # Seg Neutrophils # Man Lymphocytes # (Manual) Monocytes # (Manual) PT INR ABG pH POC ABG pCO2 POC ABG pO2 ABG pO2 ABG HCO3 ABG O2 Saturation ABG Base Excess ABG Hemoglobin ABG Oxyhemoglobin ABG Sodium ABG Potassium ABG Chloride ABG Glucose Oxyhemoglobin Sodium Potassium Chloride Carbon Dioxide BUN Creatinine Glucose POC Glucose 37 L 34 L Lactic Acid Calcium Phosphorus Magnesium Total Bilirubin AST ALT Alkaline Phosphatase Total Protein Albumin Triglycerides Arterial Blood Glucose Arterial Blood Ionized Calcium Digoxin Crossmatch 01/14/21 01/14/21 01/14/21 17:02 18:34 23:17 WBC RBC Hgb Hct MCV MCHC RDW Plt Count Lymph % (Auto) [place] % (Auto) Lymph # (Auto) [place] # (Auto) Seg Neutrophils % Seg Neuts % (Manual) Lymphocytes % (Manual) Monocytes % (Manual) Seg Neutrophils # Seg Neutrophils # Man Lymphocytes # (Manual) Monocytes # (Manual) PT INR ABG pH POC ABG pCO2 POC ABG pO2 ABG pO2 ABG HCO3 ABG O2 Saturation ABG Base Excess ABG Hemoglobin ABG Oxyhemoglobin ABG Sodium ABG Potassium ABG Chloride ABG Glucose Oxyhemoglobin Sodium Potassium Chloride Carbon Dioxide BUN Creatinine Glucose POC Glucose 35 L 143 H 53 L Lactic Acid Calcium Phosphorus Magnesium Total Bilirubin AST ALT Alkaline Phosphatase Total Protein Albumin Triglycerides Arterial Blood Glucose Arterial Blood Ionized Calcium Digoxin Crossmatch 01/15/21 01/15/21 01/15/21 00:34 04:00 04:00 WBC 15.9 H RBC 3.02 L Hgb 9.3 L Hct 27.3 L MCV MCHC RDW 15.6 H Plt Count Lymph % (Auto) [place] % (Auto) Lymph # (Auto) [place] # (Auto) Seg Neutrophils % Seg Neuts % (Manual) Lymphocytes % (Manual) Monocytes % (Manual) Seg Neutrophils # Seg Neutrophils # Man Lymphocytes # (Manual) Monocytes # (Manual) PT INR ABG pH POC ABG pCO2 POC ABG pO2 ABG pO2 ABG HCO3 ABG O2 Saturation ABG Base Excess ABG Hemoglobin ABG Oxyhemoglobin ABG Sodium ABG Potassium ABG Chloride ABG Glucose Oxyhemoglobin Sodium 136 L Potassium Chloride 94.3 L Carbon Dioxide BUN 117 H Creatinine 9.9 H Glucose 217 H POC Glucose 181 H Lactic Acid Calcium 8.3 L Phosphorus Magnesium Total Bilirubin AST ALT Alkaline Phosphatase Total Protein Albumin Triglycerides Arterial Blood Glucose Arterial Blood Ionized Calcium Digoxin Crossmatch 01/15/21 01/15/21 01/15/21 05:29 11:51 23:13 WBC RBC Hgb Hct MCV MCHC RDW Plt Count Lymph % (Auto) [place] % (Auto) Lymph # (Auto) [place] # (Auto) Seg Neutrophils % Seg Neuts % (Manual) Lymphocytes % (Manual) Monocytes % (Manual) Seg Neutrophils # Seg Neutrophils # Man Lymphocytes # (Manual) Monocytes # (Manual) PT INR ABG pH POC ABG pCO2 POC ABG pO2 ABG pO2 ABG HCO3 ABG O2 Saturation ABG Base Excess ABG Hemoglobin ABG Oxyhemoglobin ABG Sodium ABG Potassium ABG Chloride ABG Glucose Oxyhemoglobin Sodium Potassium Chloride Carbon Dioxide BUN Creatinine Glucose POC Glucose 221 H 62 L 154 H Lactic Acid Calcium Phosphorus Magnesium Total Bilirubin AST ALT Alkaline Phosphatase Total Protein Albumin Triglycerides Arterial Blood Glucose Arterial Blood Ionized Calcium Digoxin Crossmatch 01/16/21 01/16/21 01/16/21 05:04 06:44 06:44 WBC 14.8 H RBC 2.76 L Hgb 8.2 L Hct 24.8 L MCV MCHC RDW 15.6 H Plt Count Lymph % (Auto) [place] % (Auto) Lymph # (Auto) [place] # (Auto) Seg Neutrophils % Seg Neuts % (Manual) Lymphocytes % (Manual) Monocytes % (Manual) Seg Neutrophils # Seg Neutrophils # Man Lymphocytes # (Manual) Monocytes # (Manual) PT INR ABG pH POC ABG pCO2 POC ABG pO2 ABG pO2 ABG HCO3 ABG O2 Saturation ABG Base Excess ABG Hemoglobin ABG Oxyhemoglobin ABG Sodium ABG Potassium ABG Chloride ABG Glucose Oxyhemoglobin Sodium 133 L Potassium Chloride 92.3 L Carbon Dioxide 20 L BUN 160 H Creatinine 12.1 H Glucose 177 H POC Glucose 168 H Lactic Acid Calcium 8.1 L Phosphorus 5.50 H Magnesium 2.50 H Total Bilirubin AST ALT Alkaline Phosphatase Total Protein Albumin Triglycerides Arterial Blood Glucose Arterial Blood Ionized Calcium Digoxin Crossmatch 01/16/21 01/17/21 01/17/21 23:20 05:14 05:14 WBC 12.7 H RBC 2.75 L Hgb 8.5 L Hct 24.6 L MCV MCHC 35 H RDW 15.4 H Plt Count Lymph % (Auto) [place] % (Auto) Lymph # (Auto) [place] # (Auto) Seg Neutrophils % Seg Neuts % (Manual) Lymphocytes % (Manual) Monocytes % (Manual) Seg Neutrophils # Seg Neutrophils # Man Lymphocytes # (Manual) Monocytes # (Manual) PT INR ABG pH POC ABG pCO2 POC ABG pO2 ABG pO2 ABG HCO3 ABG O2 Saturation ABG Base Excess ABG Hemoglobin ABG Oxyhemoglobin ABG Sodium ABG Potassium ABG Chloride ABG Glucose Oxyhemoglobin Sodium Potassium Chloride 97.9 L Carbon Dioxide BUN 84 H Creatinine 7.8 H Glucose 176 H POC Glucose 153 H Lactic Acid Calcium 8.0 L Phosphorus Magnesium Total Bilirubin AST ALT Alkaline Phosphatase Total Protein Albumin Triglycerides Arterial Blood Glucose Arterial Blood Ionized Calcium Digoxin Crossmatch 01/17/21 05:33 WBC RBC Hgb Hct MCV MCHC RDW Plt Count Lymph % (Auto) [place] % (Auto) Lymph # (Auto) [place] # (Auto) Seg Neutrophils % Seg Neuts % (Manual) Lymphocytes % (Manual) Monocytes % (Manual) Seg Neutrophils # Seg Neutrophils # Man Lymphocytes # (Manual) Monocytes # (Manual) PT INR ABG pH POC ABG pCO2 POC ABG pO2 ABG pO2 ABG HCO3 ABG O2 Saturation ABG Base Excess ABG Hemoglobin ABG Oxyhemoglobin ABG Sodium ABG Potassium ABG Chloride ABG Glucose Oxyhemoglobin Sodium Potassium Chloride Carbon Dioxide BUN Creatinine Glucose POC Glucose 162 H Lactic Acid Calcium Phosphorus Magnesium Total Bilirubin AST ALT Alkaline Phosphatase Total Protein Albumin Triglycerides Arterial Blood Glucose Arterial Blood Ionized Calcium Digoxin Crossmatch Allied health notes reviewed: nursing
--- NOTE | 2021-01-17 11:31 | Progress Note ---
Assessment and Plan Paroxysmal atrial fibrillation currently, he is sinus rhythm on telemetry Hx of nonischemic cardiomyopathy, resolving LVEF 50-55% by echo this presentation Small bowl obstruction status post emergency exploratory laparotomy for anastomotic leak status post exploratory laparotomy s/p ex lap, resection of perforated anastamosis, washout and abthera wound vac placement ESRD now on HD Anemia s/p PRBCs Patient remains on NPO status. Will continue intravenous digoxin, and intravenous metoprolol for paroxysmal atrial fibrillation. Patient is not a candidate for anticoagulation at this time due to his postoperative status and the presence of severe anemia. Otherwise, conservative cardiac management. Subjective Date of service: 01/17/21 Principal diagnosis: Ac hypoxemic resp failure; Severe Sepsis; Peritonitis; Acute SBO; ESRD; CHF Interval history: Patient is resting in bed and appears comfortable. Sinus rhythm with PVCs on telemetry. Objective Vital Signs Temp Pulse Pulse Resp BP Pulse Ox Pulse Ox 01/17/21 07:45 97.9 F 01/17/21 07:01 66 13 144/78 97 01/17/21 06:07 68 148/67 01/17/21 06:05 68 148/67 01/17/21 06:00 70 24 148/67 99 01/17/21 05:00 70 21 150/67 97 01/17/21 04:00 98.2 F 68 71 18 159/66 97 01/17/21 03:00 65 13 157/75 99 01/17/21 02:18 66 145/65 01/17/21 02:01 71 21 152/63 98 01/17/21 01:01 68 20 117/43 98 01/17/21 00:00 78 77 32 H 120/47 97 01/16/21 23:47 98.6 F 01/16/21 23:00 68 10 L 126/51 93 01/16/21 22:00 71 19 143/60 97 01/16/21 21:49 75 149/67 01/16/21 21:48 17 01/16/21 21:46 75 149/67 01/16/21 21:00 73 19 125/57 96 01/16/21 20:01 70 16 133/56 01/16/21 20:00 99.1 F 73 73 22 133/56 96 01/16/21 19:01 74 13 124/59 96 01/16/21 18:00 64 16 147/62 98 05/24/21 17:01 75 15 147/62 96 01/16/21 16:00 98.1 F 72 72 19 130/64 96 01/16/21 15:01 73 27 H 108/60 97 01/16/21 14:30 69 107/65 01/16/21 14:29 69 107/65 01/16/21 14:01 73 24 118/58 99 01/16/21 13:30 98.8 F 78 21 108/57 98 01/16/21 13:18 81 115/51 01/16/21 13:00 92 H 26 H 112/56 97 01/16/21 12:45 86 116/59 01/16/21 12:30 86 119/56 01/16/21 12:15 91 H 134/50 01/16/21 12:00 99.2 F 79 79 18 122/51 96 01/16/21 11:45 73 122/51 01/16/21 11:30 73 121/49 - Physical Examination General: No Apparent Distress HEENT: Positive: PERRL Neck: Positive: neck supple Cardiac: Positive: Reg Rate and Rhythm Lungs: Positive: Decreased Breath Sounds - Labs and Meds CBC 01/17/21 Range/Units 05:14 WBC 12.7 H (4.5-11.0) K/mm3 RBC 2.75 L (3.65-5.03) M/mm3 Hgb 8.5 L (11.8-15.2) gm/dl Hct 24.6 L (35.5-45.6) % Plt Count 288 (140-440) K/mm3 Comprehensive Metabolic Panel 01/17/21 Range/Units 05:14 Sodium 137 (137-145) mmol/L Potassium 3.7 (3.6-5.0) mmol/L Chloride 97.9 L (98-107) mmol/L Carbon Dioxide 25 (22-30) mmol/L BUN 84 H (9-20) mg/dL Creatinine 7.8 H (0.8-1.3) mg/dL Glucose 176 H (75-100) mg/dL Calcium 8.0 L (8.4-10.2) mg/dL - Allied health notes Allied health notes reviewed: nursing
[2021-01-17] MEDS: DIGOXIN 0.5 MG/2 ML INJ IV SCH (12:57)
--- NOTE | 2021-01-17 13:13 | Progress Note ---
Assessment and Plan POD#24 s/p ex lap with extensive lysis of adhesions and two small bowel resections with primary anastamosis for SBO with necrotic segment small bowel. POD#15 s/p ex lap, resection of perforated anastamosis, washout and abthera wound vac placement. POD#13 s/p ex lap with right hemicolectomy. POD#11 s/p ex lap, with jejunal-colonic anastamosis and closure of abdomen. Afebrile and stable. - concerned about a leak at his anastamosis. Clinically improved with decreased output that is becoming more serous. Blood supply was evaluated at time of last surgery with ICG and found to be adequate. Pt was on several days of steroids for tongue swelling which may have contributed to leak. Currently since he is stable and afebrile will treat like controlled fistua. He is extremely high risk for additional surgery with tissues that are extremely friable and previous scar tissue that makes his anatomy very difficult to manipulate. Will continue octreotide drip to try to slow down GI output. Continue HARIS drain suction with and NGT deccompression. Strict NPO except for small amount of ice chips. If he requires operative intervention will likely need to be left in discontinuity and eventual ileostomy as he has already failed two anastamoses. Prognosis is gaurded. Subjective Date of service: 01/17/21 Narrative: no acute events overnight. Pt says that he some pain on his right side. He is having bowel movements and he says he wants to go home. Objective Vital Signs - 12hr 01/17/21 01/17/21 01/17/21 01:01 02:01 02:18 Temperature Pulse Rate 68 71 66 Pulse Rate [ From Monitor] Respiratory 20 21 Rate Blood Pressure 117/43 152/63 145/65 O2 Sat by Pulse 98 98 Oximetry 01/17/21 01/17/21 01/17/21 03:00 04:00 05:00 Temperature 98.2 F Pulse Rate 65 68 70 Pulse Rate [ 71 From Monitor] Respiratory 13 18 21 Rate Blood Pressure 157/75 159/66 150/67 O2 Sat by Pulse 99 97 97 Oximetry 01/17/21 01/17/21 01/17/21 06:00 06:05 06:07 Temperature Pulse Rate 70 68 68 Pulse Rate [ From Monitor] Respiratory 24 Rate Blood Pressure 148/67 148/67 148/67 O2 Sat by Pulse 99 Oximetry 01/17/21 01/17/21 07:01 07:45 Temperature 97.9 F Pulse Rate 66 Pulse Rate [ From Monitor] Respiratory 13 Rate Blood Pressure 144/78 O2 Sat by Pulse 97 Oximetry - General physical appearance well developed, no distress, no pain - Respiratory normal expansion, normal respiratory effort - Abdomen soft, other - Labs 01/18/21 04:19 01/18/21 04:19 Diabetes panel 01/17/21 Range/Units 05:14 Sodium 137 (137-145) mmol/L Potassium 3.7 (3.6-5.0) mmol/L Chloride 97.9 L (98-107) mmol/L Carbon Dioxide 25 (22-30) mmol/L BUN 84 H (9-20) mg/dL Creatinine 7.8 H (0.8-1.3) mg/dL Glucose 176 H (75-100) mg/dL Calcium 8.0 L (8.4-10.2) mg/dL Calcium panel 01/17/21 Range/Units 05:14 Calcium 8.0 L (8.4-10.2) mg/dL Phosphorus 3.50 D (2.5-4.5) mg/dL Pituitary panel 01/17/21 Range/Units 05:14 Sodium 137 (137-145) mmol/L Potassium 3.7 (3.6-5.0) mmol/L Chloride 97.9 L (98-107) mmol/L Carbon Dioxide 25 (22-30) mmol/L BUN 84 H (9-20) mg/dL Creatinine 7.8 H (0.8-1.3) mg/dL Glucose 176 H (75-100) mg/dL Calcium 8.0 L (8.4-10.2) mg/dL Adrenal panel 01/17/21 Range/Units 05:14 Sodium 137 (137-145) mmol/L Potassium 3.7 (3.6-5.0) mmol/L Chloride 97.9 L (98-107) mmol/L Carbon Dioxide 25 (22-30) mmol/L BUN 84 H (9-20) mg/dL Creatinine 7.8 H (0.8-1.3) mg/dL Glucose 176 H (75-100) mg/dL Calcium 8.0 L (8.4-10.2) mg/dL
--- NOTE | 2021-01-17 13:24 | Progress Note ---
Assessment and Plan Cultures: 12/22/2020 blood culture: Streptococcus bovis, Prevotella 12/22/2020 PD fluid culture: No growth 12/24/2020 tracheal aspirate culture: No growth 12/24/2020 blood culture: No growth 12/31/2020 sputum culture: No growth A/P: 60-year-old male with ESRD on PD, Crohn's disease, CHF, gastroesophageal reflux disease was admitted to the hospital with complaints of abdominal pain and fever: #Severe sepsis with shock: improved. Secondary to small bowel obstruction/necrotic bowel with associated peritonitis. Status post exploratory laparotomy on 12/23/2020 with extensive lysis, primary anastomosis, found to have necrotic segment of small bowel. #Small bowel obstruction/necrotic bowel: with concern for PD associated peritonitis: Nephrology and general surgery following. Status post exploratory laparotomy on 12/23/2020 with extensive lysis, primary anastomosis, found to have necrotic segment of small bowel. PD catheter remains in place. S/p ex lap, resection of perforated anastamosis, washout and abthera wound vac placement on 01/01. Repeat CT abdomen showed no new abscesses, noted small free fluid. S/p Exploratory laparotomy, Right hemicolectomy, Peritoneal lavage, Partial omentectomy, ABThera wound VAC placement on 01/03/2021. Complicated intra- abdominal situation per d/w Dr. Sanchez, plan to continue IV abx for now, has limited surgical options at this time. #Streptococcus bovis bacteremia and Prevotella bacteremia: secondary to above. TTE without obvious vegetations. Repeat blood cultures negative. #ESRD: Renally dose antibiotics. Used to be on PD. On HD. #Acute respiratory failure: off the vent. #Anemia: Severe. Recs: -continue supportive care, IV Zosyn -monitor for any worsening fever/leucocytosis Yesika Denny MD, FACP [facility] O: [phone] F: [phone] Subjective Date of service: 01/17/21 Principal diagnosis: Ac hypoxemic resp failure; Severe Sepsis; Peritonitis; Acute SBO; ESRD; CHF Interval history: Afebrile. Getting VAC change at bedside. Denies any complaints. Objective - Exam Narrative Exam: Physical Exam: Constitutional: awake alert, NG tube + Head, Ears, Nose: Normocephalic, atraumatic. External ears, nose normal Eyes: Conjunctivae/corneas clear. No icterus. No ptosis. Neck: supple Cardiovascular: S1, S2 + Respiratory: AE fair bilaterally GI: distended, VAC +, bowel sounds hypo Musculoskeletal: No pedal edema, no cyanosis. Skin: No rash or abscess Hem/Lymphatic: No palpable cervical or supraclavicular nodes. No lymphangitis Psych: calm, no agitation Neurological: awake, alert, oriented, answering questions. - Constitutional Vitals: Vital Signs Temp Pulse Resp BP Pulse Ox 97.9 F 67 13 150/59 97 01/17/21 07:45 01/17/21 12:57 01/17/21 07:01 01/17/21 12:57 01/17/21 07:01 Temperature -Last 24 Hours Temperature 97.9 F Temperature 98.2 F Temperature 98.6 F Temperature 99.1 F Temperature 98.1 F Temperature 98.8 F - Labs CBC & Chem 7: 01/17/21 05:14 01/17/21 05:14 Labs: Abnormal lab results 01/16/21 01/17/21 01/17/21 Range/Units 23:20 05:14 05:14 WBC 12.7 H (4.5-11.0) K/mm3 RBC 2.75 L (3.65-5.03) M/mm3 Hgb 8.5 L (11.8-15.2) gm/dl Hct 24.6 L (35.5-45.6) % MCHC 35 H (32-34) % RDW 15.4 H (13.2-15.2) % Chloride 97.9 L (98-107) mmol/L BUN 84 H (9-20) mg/dL Creatinine 7.8 H (0.8-1.3) mg/dL Glucose 176 H (75-100) mg/dL POC Glucose 153 H (70-105) mg/dL Calcium 8.0 L (8.4-10.2) mg/dL 01/17/21 Range/Units 05:33 WBC (4.5-11.0) K/mm3 RBC (3.65-5.03) M/mm3 Hgb (11.8-15.2) gm/dl Hct (35.5-45.6) % MCHC (32-34) % RDW (13.2-15.2) % Chloride (98-107) mmol/L BUN (9-20) mg/dL Creatinine (0.8-1.3) mg/dL Glucose (75-100) mg/dL POC Glucose 162 H (70-105) mg/dL Calcium (8.4-10.2) mg/dL
[2021-01-17] MEDS: OCTREOTIDE 500 MCG in SODIUM CHLORIDE 0.9% 100 ML IV SCH (15:50)
[2021-01-17] MEDS ORDERED: TOTAL PARENTERAL NUTRITION 2,016 ML IV SCH (20:00)
[2021-01-18] MEDS: INSULIN LISPRO 100 UNIT/ML SUB-Q SCH ×5 (01:41→23:49)
[2021-01-18] MEDS: INSULIN GLARGINE 100 UNITS/ML SUB-Q SCH ×2 (01:50→21:11)
[2021-01-18] MEDS: METOPROLOL TARTRATE 5 MG/5 ML INJ IV SCH ×6 (01:51→21:06)
[2021-01-18] MEDS: hydrALAZINE 20 MG/1 ML INJ IV SCH ×6 (01:51→21:07)
[2021-01-18 04:32] LABS: Hematocrit 26.8 % (35.5-45.6); Hemoglobin 9.2 gm/dl (11.8-15.2); Mean Corpuscular HGB Conc 35 % (32-34); Mean Corpuscular Volume 89 fl (84-94); Platelet Count 329 K/mm3 (140-440); Red Cell Distribution Width 15.6 % (13.2-15.2)
[2021-01-18] MEDS: PIPERACIL-TAZO 2.25 GM/50 ML 2.25 GM/50 ML BAG IV SCH ×3 (04:32→21:00)
[2021-01-18 04:55] LABS: Calcium 8.5 mg/dL (8.4-10.2)
--- NOTE | 2021-01-18 08:41 | Progress Note ---
Assessment and Plan Assessment and plan: This is a 60 YO Male with ESRD on PD, GERD, Crohn's Disease, Nicotine Dependence, HTN, Systolic CHF(EF 35%) who presented to the emergency department on 12/22 with complaints of abdominal pain which began shortly after eating fast food rated 10/10 which is periumbilical, constant, associated with fever, nausea and multiple sites of vomiting and self-reported inability to undergo PD. In the emergency room patient underwent a CT scan of the abdomen/pelvis which revealed evidence of partial small bowel obstruction, symptoms were consistent with bacterial peritonitis. Patient was admitted to the hospital service with sepsis, peritonitis, and small bowel obstruction with consults to general surgery, nephrology, infectious disease and [facility]. 12/23. Patient had temperature 101.2 F, tachycardia and elevated lactic acid on admission. Meet sepsis criteria. Started on IV antibiotics. ID has been c onsulted. Surgery consulted this a.m.-advised laparoscopy. He remains on NG tube connected to suction. 12/24. Patient was noted to have peritonitis yesterday and patient undergoing exploratory laparotomy. Patient remained intubated after procedure and is in ICU. Now on broad-spectrum antibiotics. ID on board. 12/25. Remains mechanically ventilated and sedated. Temp 103 Fahrenheit. Antibiotics broadened-ID added fluconazole and Flagyl. Blood cultures ordered. Plan to repeat CT abdomen tomorrow if not better. Surgery following. 12/26: Patient remains on mechanical ventilation on CMV tidal line 550, rate of 14, PEEP of 8 and 30% FiO2 and sedated on fentanyl 4 micrograms. Today we will remove his Jeffery and CCM dropped his rate controlled him on CPAP. We will trend CBC given recent drop in H/H. 12/27: Patient remains intubated on CMV tidal volume 550, rate 12, PEEP 8 on 30% FiO2 at the time my examination. Patient's TPN will be changed to PPN. Patient's fentanyl drip will be changed to IV push fentanyl and have a permacath placed today and midline. Patient was placed on a spontaneous breathing trial was switched back to CMV prior to procedure. 12/28: Patient on fentanyl but awake and follows commands. At the time of my examination he was on a CPAP trial and is scheduled to receive HD today. s/o permacath and PICC placement with vascular yesterday. His blood culture grew Prevotella and addition to Streptococcus bovis. This evening Dr. Spicer attempted to extubate the patient and his heart rate went to the 180s. Stat EKG obtained and cardiology consulted. 12/29: Patient was started on amiodarone IV for A. fib RVR yesterday and today he is more rate controlled into the 70s and 80s. Patient was extubated yesterday and is currently on Ventimask. Patient will be transferred to [facility]. Patient continues to be n.p.o. with TPN and NG tube to LIS. He is hypokalemic today which was repleted. 12/30; patient was on IV amiodarone for treatment with RVR, rate is controlled. Patient was off oxygen. patient is n.p.o. and on TPN. Surgery is following the patient. 12/31: Patient was intubated overnight for respiratory distress and this morning on examination he was on assist control tidal volume 450, rate 20, PEEP 6, 100% FiO2 and RT was getting a ABG to adjust vent settings. Patient had a acute bump in WBC and per ID recommendations we will obtain a CT abdomen/pelvis if leukocytosis persist. Patient is on TPN and sedated with Levophed. Patient is also on vasopressor support with Levophed. Per surgery his ileus is resolving however will maintain OGT to LIWS. 01/01: Patient was started on a vasopressin yesterday late evening. This morning patient is on 20 mcg of Levophed and 0.03 vasopressin and sedated on 20 mcg of propofol. Patient WBC increased today and he is hypokalemic. We will treat hyperkalemia. Patient had a CT chest and abdomen/pelvis pending. The time examination total of 450, rate 20, PEEP of 6 and 35 percent FiO2. Per RN, Dr Pollock has stated that the patient will be returning to the OR today for likely anastomosis seen on CT abdomen/pelvis. 01/02: Patient noted, WBC improving, but noted to have anemia, will transfuse additional unit of Blood and repeat H/H. continue supportive care. 01/03: Continue to wean pressors, ABX PER ID, patient to return to OR today for washout and possible closure, CONTINUE TPN 01/04: Continues to show some improvement. Today is POD#12 s/p ex lap with extensive lysis of adhesions and two small bowel resections with primary anastamosis for SBO with necrotic segment small bowel. POD#3 s/p ex lap, resection of perforated anastamosis, washout and abthera wound vac placement. POD#1 s/p ex lap with right hemicolectomy. Surgery planning to take back to the OR on Saturday with the hope to anastamos ileum to transverse colon and close abdomen. keep NGT to suction. Pt in deep sedation due to open abdomen. Per ID - Continue IV Zosyn, renally dosed for Strep bacteremia treatment till 01/06/2021 -On TPN 01/05: Patient continues on HD, anticipate return to OR tomorrow for closure and anastemosis. Continues with deep sedation due to open abdomen 01/06: Continue supportive care, monitor pressures and electrolytes. He is post op Exploratory laparotomy, 2. Jejunal colonic anastomosis,3. Segmental small bowel resection and anastemosis closure today. Continue wound vac 01/07: Continue supportive care, Today is POD#15 s/p ex lap with extensive lysis of adhesions and two small bowel resections with primary anastamosis for SBO with necrotic segment small bowel. POD#6 s/p ex lap, resection of perforated anastamosis, washout and abthera wound vac placement. POD#4 s/p ex lap with right hemicolectomy. POD #1 exploratory laparotomy, 2. Jejunal colonic anastomosis,3. Segmental small bowel resection. Continue to monitor and correct electrolytes. Patient remains on fentanyl and TPN with lipids. Still hypoactive bowel sounds. 16: Patient now extubated, asked when he can go home, Still lethargic. Continue wound management, wound vac, Will need Rehab eval prior to discharge. 01/09: Patient remains on TPN, was started on labetalol drip per cardiology, africa dueñas had uncontrolled hypertension today however he cannot be given p.o. medications ileus resolves per surgery. Patient received hemodialysis today. NG tube remains to low intermittent suction. 01/10: Patient has some leukocytosis, slight hypokalemia and hyponatremia, metabolic acidosis. NG tube to LIWS, continue TPN. Patient will be downgraded to IMCU today. [facility] is working on placement. Will change frequency of hydralazine and discontinue labetalol drip. We will obtain a.m. BMP/mag/Phos and CBC. Infectious disease will like to start Zosyn if leukocytosis continues to worsen. 01/11: Patient leukocytosis has slightly improved potassium with in normal limits and other electrolytes are elevated but patient is scheduled for HD today. Remains on RA and A,A,Ox4. BP better controlled but remains elevated and we will increase clonidine dose. 01/12/2021; patient's blood pressure is better after dialysis and as needed IV medications and clonidine patch. Patient is followed by general surgery. Patient was alert and oriented and asked when he is going home. 01/13: Surgery is concerned about a leak at his anastamosis given increased output and will treat as controlled fistula and start an octreotide drip. And per surgery if he requires operative intervention will likely need to be left in discontinuity and eventual ileostomy as he has already failed two anastamoses. Patient still has tongue swelling and slurred speech. He is on Benadryl. 01/14: Patient's tongue swelling is improved, patient is alert and oriented, CAM ICU negative. Continue NG tube to low wall intermittent suction. Leukocytosis is improving. Hypomagnesemia resolved. Epogen with HD 01/15: Patient tongue swelling is much improved, bladder scan completed by bedside RN and he needed to be straight cathed. NGT output decreased. Leukocytosis improving. Patient has been having episodes of hypoglycemia during the day and he is on cyclic TPN, Lantus rescheduled to nightly and dosage decreased. 01/16: Continue management per ID and surgery. Will defer repeat CT of the abdomen to the team surgery has been approved by nephrology. Continue current diet and advance all to ice if okay with surgery discussed with nursing staff. 01/17: Discussed surgical recommendation of strict n.p.o. except for small amount of ice as patient has already failed to anastomosis. And risk for additional surgery with tissues were extremely friable from previous scar. He continues on octreotide drip to slow down GI output HARIS drain remains in place with NG suction for decompression. Patient verbalized understanding although stressed about being discharged. We will continue IMCU care unless otherwise advised by david andersen. Prognosis remains guarded continue to monitor electrolytes considering GI output. 01/18: Continue supportive care, BP mildly elevated, continue to monitor, continue current therapy, if no return to PO soon may consider Increasing clonidine to 0.3, PO when ok with surgery. Severe Sepsis with shock Streptococcus bovis bacteremia/Prevotella bacteremia Gwendolyn albicans tracheal aspirate Small bowel obstruction/necrotic bowel s/p ex lap with extensive lysis of adhesions, 2 small bowel resections with primary anastomosis, right hemicolectomy, jejunal colonic anastomosis, segmental small bowel resection Postoperative ileus Atrial fibrillation with RVR Leukocytosis Hypochloremia Gwendolyn albicans in tracheal aspirate from 12/24 ESRD on PD, PermCath to be placed Transaminitis Systolic CHF(EF 35%) Crohn's disease Hypertension -[facility], surgery, infectious disease, nephrology, vascular surgery, cardiology consulted, appreciate recommendations -12/24 S/p ex lap with extensive expectations, 2 small bowel resections with primary anastomosis with surgery on 12/23 -s/p PICC and Permacath placement with vascular surgery on 12/27 -Extubated on 12/28, reintubated 12/31 for respiratory distress and extubated 01/08 -12/29 echocardiogram shows moderate concentric LVH, small pericardial effusion, transmitral Doppler flow pattern is grade 1 abnormal relaxation pattern, left- ventricular systolic function normal, LVEF 50 to 55%, no wall motion abnormalities. -01/01 CT abdomen/pelvis shows small pericardial effusion, mild coronary artery atherosclerotic calcification, small bilateral pleural effusions with associated volume loss, no convincing evidence of bowel obstruction or inflammation, postoperative changes from interval/recent midline laparotomy with a moderate amount of free fluid throughout the abdomen, small amount of dependent free air presumably postoperative -01/02 s/p ex lap, resection of perforated anastamosis, washout and abthera wound vac placement. -01/04 s/p ex lap with right hemicolectomy. -01/06 s/p exploratory laparotomy, Jejunal colonic anastomosis, Segmental small bowel resection. -s/p Vasopressor support with Levophed and vasopressin -Transitioned to HD from PD -HD per nephro, Epogen with HD -Strict NPO -TPN -Octreotide drip -NGT to LIWS -s/p IV antibiotics -Tobacco abuse cessation counseling -Trend CBC, BMP DVT/GI prophylaxis: PPI, heparin subcu, SCDs to bilateral lower extremities while in bed Disposition: IMCU History Interval history: This is a 60-year-old male with ESRD on peritoneal dialysis, Crohn's, hypertension, systolic CHF (EF 35%) who was admitted with sepsis, peritonitis, small bowel obstruction and now has gram-positive cocci bacteremia. Patient seen and examined, this morning no new complaints this morning except wanting to go home. Reports BM Hospitalist Physical - Physical exam Narrative exam: General appearance: Present: no acute distress, Dry oropharyngeal area. - EENT Eyes: Present: PERRL ENT: poor dentition - Neck Neck: Absent: masses or JVD, cervical LAD - Respiratory Respiratory effort: normal Respiratory: bilateral: diminished - Cardiovascular Rhythm: irregularly irregular Heart Sounds: Present: S1 & S2. Absent: systolic murmur, diastolic murmur - Extremities Extremities: no ischemia, pulses intact, pulses symmetrical, No edema, normal temperature, normal color Peripheral Pulses: within normal limits - Abdominal General gastrointestinal: distended, abdomen dressing, rigid, w HARIS drain in place. Hypoactive bowel sounds. - Integumentary Integumentary: Present: Left chest permacath - Neurologic Neurologic: Awake alert oriented moves extremities - Allied Health Allied health notes reviewed: nursing - Constitutional Vitals: Temp Pulse Resp BP Pulse Ox 99.1 F 70 18 178/76 98 01/18/21 07:00 01/18/21 07:00 01/18/21 07:00 01/18/21 07:00 01/18/21 07:00 General appearance: Present: no acute distress HEART Score - HEART Score Troponin: Troponin T 0.021 ng/mL (0.00-0.029) 12/22/20 14:38 Results - Labs CBC & Chem 7: 01/18/21 04:19 01/18/21 04:19 Labs: Laboratory Last Values WBC 15.6 K/mm3 (4.5-11.0) H 01/18/21 04:19 RBC 3.00 M/mm3 (3.65-5.03) L 01/18/21 04:19 Hgb 9.2 gm/dl (11.8-15.2) L 01/18/21 04:19 Hct 26.8 % (35.5-45.6) L 01/18/21 04:19 MCV 89 fl (84-94) 01/18/21 04:19 MCH 31 pg (28-32) 01/18/21 04:19 MCHC 35 % (32-34) H 01/18/21 04:19 RDW 15.6 % (13.2-15.2) H 01/18/21 04:19 Plt Count 329 K/mm3 (140-440) 01/18/21 04:19 Lymph % (Auto) 4.4 % (13.4-35.0) L 01/13/21 03:45 [place] % (Auto) 10.3 % (0.0-7.3) H 01/13/21 03:45 Eos % (Auto) 0.9 % (0.0-4.3) 01/13/21 03:45 Baso % (Auto) 0.2 % (0.0-1.8) 01/13/21 03:45 Lymph # (Auto) 0.8 K/mm3 (1.2-5.4) L 01/13/21 03:45 [place] # (Auto) 1.8 K/mm3 (0.0-0.8) H 01/13/21 03:45 Eos # (Auto) 0.2 K/mm3 (0.0-0.4) 01/13/21 03:45 Baso # (Auto) 0.0 K/mm3 (0.0-0.1) 01/13/21 03:45 Add Manual Diff Complete 01/10/21 09:26 Total Counted 100 01/10/21 09:26 Seg Neutrophils % 84.2 % (40.0-70.0) H 01/13/21 03:45 Seg Neuts % (Manual) 95.0 % (40.0-70.0) H 01/10/21 09:26 Band Neutrophils % 1.0 % 01/10/21 09:26 Lymphocytes % (Manual) 3.0 % (13.4-35.0) L 01/10/21 09:26 Reactive Lymphs % (Man) 1.0 % 12/29/20 05:16 Monocytes % (Manual) 1.0 % (0.0-7.3) 01/10/21 09:26 Eosinophils % (Manual) 2.0 % (0.0-4.3) 12/29/20 05:16 Metamyelocytes % 2.0 % 12/29/20 05:16 Nucleated RBC % Not Reportable 01/10/21 09:26 Seg Neutrophils # 14.8 K/mm3 (1.8-7.7) H 01/13/21 03:45 Seg Neutrophils # Man 17.3 K/mm3 (1.8-7.7) H 01/10/21 09:26 Band Neutrophils # 0.2 K/mm3 01/10/21 09:26 Lymphocytes # (Manual) 0.5 K/mm3 (1.2-5.4) L 01/10/21 09:26 Abs React Lymphs (Man) 0.0 K/mm3 01/10/21 09:26 Monocytes # (Manual) 0.2 K/mm3 (0.0-0.8) 01/10/21 09:26 Eosinophils # (Manual) 0.0 K/mm3 (0.0-0.4) 01/10/21 09:26 Basophils # (Manual) 0.0 K/mm3 (0.0-0.1) 01/10/21 09:26 Metamyelocytes # 0.0 K/mm3 01/10/21 09:26 Myelocytes # 0.0 K/mm3 01/10/21 09:26 Promyelocytes # 0.0 K/mm3 01/10/21 09:26 Blast Cells # 0.0 K/mm3 01/10/21 09:26 WBC Morphology Not Reportable 01/10/21 09:26 Hypersegmented Neuts Not Reportable 01/10/21 09:26 Hyposegmented Neuts Not Reportable 01/10/21 09:26 Hypogranular Neuts Not Reportable 01/10/21 09:26 Smudge Cells Not Reportable 01/10/21 09:26 Toxic Granulation 1+ 01/10/21 09:26 Toxic Vacuolation Not Reportable 01/10/21 09:26 Dohle Bodies Not Reportable 01/10/21 09:26 Pelger-Huet Anomaly Not Reportable 01/10/21 09:26 Lamar Rods Not Reportable 01/10/21 09:26 Platelet Estimate Consistent w auto 01/10/21 09:26 Clumped Platelets Not Reportable 01/10/21 09:26 Plt Clumps, EDTA Not Reportable 01/10/21 09:26 Large Platelets Not Reportable 01/10/21 09:26 Giant Platelets Not Reportable 01/10/21 09:26 Platelet Satelliting Not Reportable 01/10/21 09:26 Plt Morphology Comment Not Reportable 01/10/21 09:26 RBC Morphology Not Reportable 01/10/21 09:26 Dimorphic RBCs Not Reportable 01/10/21 09:26 Polychromasia Not Reportable 01/10/21 09:26 Hypochromasia Not Reportable 01/10/21 09:26 Poikilocytosis Not Reportable 01/10/21 09:26 Anisocytosis 1+ 01/10/21 09:26 Microcytosis Not Reportable 01/10/21 09:26 Macrocytosis Not Reportable 01/10/21 09:26 Spherocytes Not Reportable 01/10/21 09:26 Pappenheimer Bodies Not Reportable 01/10/21 09:26 Sickle Cells Not Reportable 01/10/21 09:26 Target Cells Not Reportable 01/10/21 09:26 Tear Drop Cells Not Reportable 01/10/21 09:26 Ovalocytes Not Reportable 01/10/21 09:26 Helmet Cells Not Reportable 01/10/21 09:26 [place] Bodies Not Reportable 01/10/21 09:26 [place]on Rings Not Reportable 01/10/21 09:26 Jenny Cells Not Reportable 01/10/21 09:26 Bite Cells Not Reportable 01/10/21 09:26 Crenated Cell Not Reportable 01/10/21 09:26 Elliptocytes Not Reportable 01/10/21 09:26 Acanthocytes (Spur) Not Reportable 01/10/21 09:26 Rouleaux Not Reportable 01/10/21 09:26 Hemoglobin C Crystals Not Reportable 01/10/21 09:26 Schistocytes Not Reportable 01/10/21 09:26 Malaria parasites Not Reportable 01/10/21 09:26 Lucas Bodies Not Reportable 01/10/21 09:26 Hem Pathologist Commnt No 01/10/21 09:26 PT 16.9 Sec. (12.2-14.9) H 01/01/21 12:45 INR 1.39 (0.87-1.13) H 01/01/21 12:45 APTT 25.1 Sec. (24.2-36.6) 12/22/20 14:38 ABG pH 7.345 pH Units (7.350-7.450) L 01/07/21 17:14 POC ABG pCO2 41.4 mmHg (32.0-48.0) 01/07/21 03:07 ABG pCO2 40.3 mm Hg 01/07/21 17:14 POC ABG pO2 94.5 mmHg (83-108) 01/07/21 03:07 ABG pO2 67.4 mm Hg (80.0-90.0) L 01/07/21 17:14 POC ABG HCO3 22.7 01/07/21 03:07 ABG HCO3 21.5 mmol/L (20.0-26.0) 01/07/21 17:14 ABG O2 Saturation 94.3 % (95.0-99.0) L 01/07/21 17:14 ABG O2 Content 11.6 (0.0-44) 01/07/21 17:14 POC ABG Base Excess -2.7 01/07/21 03:07 ABG Base Excess -3.9 mmol/L (-2.0-3.0) L 01/07/21 17:14 ABG Hemoglobin 8.9 gm/dl (14.0-18.0) L 01/07/21 17:14 ABG Oxyhemoglobin 96.6 (94-98) 01/07/21 03:07 ABG Carboxyhemoglobin 1.5 % (0.0-5.0) 01/07/21 17:14 ABG Methemoglobin 0.6 % (0.0-1.5) 01/07/21 17:14 ABG Sodium 135.6 mmol/L (136.0-145.0) L 01/07/21 03:07 ABG Potassium 4.0 mmol/L (3.40-4.50) 01/07/21 03:07 ABG Chloride 102.0 mmol/L (98-107) 01/07/21 03:07 ABG Glucose 181 mg/dL (65-95) H 01/07/21 03:07 Oxyhemoglobin 92.3 % (95.0-99.0) L 01/07/21 17:14 Carboxyhemoglobin 0.7 (0.5-1.5) 01/07/21 03:07 FiO2 21 % 01/07/21 17:14 FiO2 % 45.0 01/07/21 03:07 Sodium 137 mmol/L (137-145) 01/18/21 04:19 Potassium 4.1 mmol/L (3.6-5.0) 01/18/21 04:19 Chloride 96.2 mmol/L (98-107) L 01/18/21 04:19 Carbon Dioxide 22 mmol/L (22-30) 01/18/21 04:19 Anion Gap 23 mmol/L 01/18/21 04:19 BUN 117 mg/dL (9-20) H 01/18/21 04:19 Creatinine 10.0 mg/dL (0.8-1.3) H 01/18/21 04:19 Estimated GFR 6 ml/min 01/18/21 04:19 BUN/Creatinine Ratio 12 % 01/18/21 04:19 Glucose 165 mg/dL (75-100) H 01/18/21 04:19 POC Glucose 146 mg/dL (70-105) H 01/18/21 00:07 Lactic Acid 1.10 mmol/L (0.7-2.0) 01/14/21 05:39 Calcium 8.5 mg/dL (8.4-10.2) 01/18/21 04:19 Phosphorus 4.70 mg/dL (2.5-4.5) H D 01/18/21 04:19 Magnesium 2.00 mg/dL (1.7-2.3) 01/18/21 04:19 Total Bilirubin 0.90 mg/dL (0.1-1.2) 01/08/21 04:34 AST 30 units/L (5-40) 01/08/21 04:34 ALT 29 units/L (7-56) 01/08/21 04:34 Alkaline Phosphatase 133 units/L (35-129) H 01/08/21 04:34 Ammonia 30.0 umol/L (25-60) 12/22/20 14:38 Troponin T 0.021 ng/mL (0.00-0.029) 12/22/20 14:38 Total Protein 5.4 g/dL (6.3-8.2) L 01/08/21 04:34 Albumin 1.9 g/dL (3.9-5) L 01/08/21 04:34 Albumin/Globulin Ratio 0.5 % 01/08/21 04:34 Triglycerides 73 mg/dL (2-149) 01/18/21 04:19 Lipase 41 units/L (13-60) 12/22/20 14:38 Procalcitonin > 200.00 ng/mL (<0.15) 12/24/20 15:06 TSH 1.470 mlU/mL (0.270-4.200) 12/28/20 19:44 Arterial Blood Glucose 181 mg/dL (65-95) H 01/07/21 03:07 Arterial Blood Ionized Calcium 4.3 mg/dL (4.6-5.3) L 01/07/21 03:07 Urine Color Yellow (Yellow) 12/22/20 18:53 Urine Turbidity Clear (Clear) 12/22/20 18:53 Urine pH 7.0 (5.0-7.0) 12/22/20 18:53 Ur Specific [place] 1.012 (1.003-1.030) 12/22/20 18:53 Urine Protein >500 mg/dL (Negative) 12/22/20 18:53 Urine Glucose (UA) Neg mg/dL (Negative) 12/22/20 18:53 Urine Ketones Neg mg/dL (Negative) 12/22/20 18:53 Urine Blood Neg (Negative) 12/22/20 18:53 Urine Nitrite Neg (Negative) 12/22/20 18:53 Urine Bilirubin Neg (Negative) 12/22/20 18:53 Urine Urobilinogen < 2.0 mg/dL (<2.0) 12/22/20 18:53 Ur Leukocyte Esterase Neg (Negative) 12/22/20 18:53 Urine WBC (Auto) < 1.0 /HPF (0.0-6.0) 12/22/20 18:53 Urine RBC (Auto) 1.0 /HPF (0.0-6.0) 12/22/20 18:53 Fluid Type Dialysate 12/22/20 Unknown Fluid Color Colorless 12/22/20 Unknown Fluid Appearance Cloudy 12/22/20 Unknown Fluid WBC 208 /mm3 12/22/20 Unknown Fluid RBC 45 /mm3 12/22/20 Unknown Fluid Seg Neutrophils 82.0 % 12/22/20 Unknown Fluid Lymphocytes 11.0 % 12/22/20 Unknown Fluid Reactive Lymphs 0 % 12/22/20 Unknown Fluid Monocytes 7.0 % 12/22/20 Unknown Fluid Eosinophils 0 % 12/22/20 Unknown Fluid Basophils 0 % 12/22/20 Unknown Random Vancomycin 13.7 ug/mL (0-40.0) 12/26/20 Unknown Digoxin 0.8 ng/mL (0.9-2.0) L 01/11/21 05:18 Hepatitis A IgM Ab Non-reactive (NonReactive) 12/23/20 11:38 Hep Bs Antigen Non-reactive (Negative) 12/23/20 11:38 Hep B Core IgM Ab Non-reactive (NonReactive) 12/23/20 11:38 Hepatitis C Antibody Non-reactive (NonReactive) 12/23/20 11:38 Blood Type A POSITIVE 01/06/21 07:10 Antibody Screen Negative 01/06/21 07:10 Crossmatch See Detail 01/06/21 07:10 Jeffery/IV: Voiding Method Urinal Active Medications - Current Medications Current Medications: Generic Name Dose Route Start Last Admin Trade Name Freq PRN Reason Stop Dose Admin Acetaminophen 650 mg 12/31/20 15:30 12/31/20 15:13 Acetaminophen 650 Mg Rect Supp [place] 650 mg Q6H PRN Administration Non Cardiac Pain or Temp>100.5 Clonidine HCl 0.2 mg 01/11/21 10:00 01/11/21 09:24 Clonidine Tts 0.2 Mg/24 Hr Patch TD 0.2 mg We THOMAS Administration Dextrose 50 ml 01/14/21 17:59 01/15/21 12:08 Dextrose 50% In Water (25gm) 50 Ml Syringe IV 15 ml Q30MIN PRN Administration Hypoglycemia Protocol Digoxin 0.125 mg 01/09/21 12:00 01/17/21 12:57 Digoxin 0.5 Mg/2 Ml Inj IV 0.125 mg Q48H THOMAS Administration Famotidine 10 mg 12/24/20 13:00 01/17/21 22:56 Famotidine 20 Mg/2 Ml Inj IV 10 mg BID THOMAS Administration Haloperidol Lactate 5 mg 12/29/20 14:16 01/16/21 00:14 Haloperidol Lactate 5 Mg/1 Ml Inj IV 5 mg Q12H PRN Administration Agitation Heparin Sodium (Porcine) 5,000 unit 12/24/20 10:00 01/17/21 22:55 Heparin 5,000 Unit/1 Ml Vial SUB-Q 5,000 unit Q12HR THOMAS Administration Hydralazine HCl 10 mg 01/10/21 14:00 01/18/21 05:55 Hydralazine 20 Mg/1 Ml Inj IV 10 mg Q4HR THOMAS Administration Hydromorphone HCl 0.25 mg 01/09/21 10:53 01/16/21 21:48 Hydromorphone 1 Mg/1 Ml Inj IV 0.25 mg Q6H PRN Administration Pain , Severe (7-10) Hydrophilic Ointment 1 applic 12/31/20 06:39 01/11/21 21:28 Lip Therapy Vaseline TP 1 applic Q2HR PRN Administration Dry Lips Sodium Chloride 100 mls @ 999 mls/hr 01/12/21 09:20 Nacl 0.9% IV [place] PRN Hypotension Octreotide Acetate 500 mcg/ 101 mls @ 5.05 mls/hr 01/13/21 11:00 01/17/21 15:50 Sodium Chloride IV 25 mcg/hr TITR THOMAS 5.05 mls/hr Administration Protocol 25 MCG/HR Piperacillin Sod/Tazobactam Sod 2.25 gm in 50 mls @ 100 mls/hr 01/13/21 12:00 01/18/21 04:32 Zosyn/Ns 2.25 Gm/50ml IV 100 mls/hr Q8H [facility] Administration Protocol Insulin Glargine 5 units 01/18/21 22:00 Insulin Glargine 100 Units/Ml SUB-Q QHS THOMAS Insulin Human Lispro 0 unit 01/03/21 12:00 01/18/21 06:17 Insulin Lispro 100 Unit/Ml SUB-Q Not Given Q6HR [facility] Protocol Metoprolol Tartrate 5 mg 12/30/20 12:00 01/18/21 05:54 Metoprolol Tartrate 5 Mg/5 Ml Inj IV 5 mg Q4HR THOMAS Administration Multi-Ingred Cream/Lotion/Oil/Oint 1 applic 12/31/20 06:39 Mineral Oil/Petrolatum, White Ophth Oint 3.5 Gm OU Q4HR PRN Dry Eye(s) Scopolamine 1 each 01/15/21 11:00 01/15/21 12:00 Scopolamine Transdermal Patch 72 Hr TD 1 each Q3D THOMAS Administration Sodium Chloride 10 ml 12/22/20 22:00 01/17/21 22:57 Sodium Chloride 0.9% 10 Ml Flush Syringe IV 10 ml BID THOMAS Administration Sodium Chloride 10 ml 12/22/20 19:42 01/09/21 17:27 Sodium Chloride 0.9% 10 Ml Flush Syringe IV 10 ml PRN PRN Administration LINE FLUSH Nutrition/Malnutrition Assess - Dietary Evaluation Nutrition/Malnutrition Findings: Nutrition Notes Start: 12/24/20 12:36 Freq: Status: Active Protocol: Document 01/18/21 08:19 (Rec: 01/18/21 08:21 [id number]) Nutrition Notes Initial or Follow up Reassessment Current Diagnosis CKD (stage V CKD),Sepsis, Hypertension,Heart Failure, Small Bowel Obstruction Other Pertinent Diagnosis Peritonitis, SBO s/p resection Current Diet 12 h Cyclic CPN 108/180/108 Labs/Tests Phos 4.7 Pertinent Medications Reviewed Height 5 ft 7 in Weight 91.3 kg Mclean Body Weight (kg) 67.27 BMI 31.5 Weight Status Overweight Subjective/Other Information TPN day 24. Pt continues on NGT to LIS. Percent of energy/protein needs met: 98%/100% Burn Absent Trauma Absent Current % PO Negligible Minimum of two criteria No #2 Nutrition Diagnosis Increased nutrient needs ( specify in comment below) Diagnosis Progress(for reassessment Continues documentation) #1 Nutrition Diagnosis Inadequate oral intake Diagnosis Progress(for reassessment Continues documentation) Is patient on ventilator? No Is Patient Ambulatory and/or Out of Bed No REE-([place]-confined to bed) 2009.804 Kcal/Kg value to use for calculation 18 Approximate Energy Requirements Using 1643 kcal/Kg Calculation Used for Recommendations Kcal/kg Additional Notes Pro needs: 101-121 g/day (1.25 -1.5 g/kg AdjBW, 81kg) Fluid needs per MD. Nutrition Intervention Change Diet Order: Continue CPN Nutrition Support: 12 h Cyclic CPN at 108/180/108 ml/hr Osmoality 1607 MVI, Lipids Goal #1 Meet at least 75% of estimated energy and protein needs via CPN Anticipated Discharge Needs: 12 hour cyclic TPN Follow-Up By: 01/19/21 Additional Comments Labs in AM: BMP
[2021-01-18] MEDS: FAMOTIDINE 20 MG/2 ML INJ IV SCH ×2 (09:05→21:08)
[2021-01-18] MEDS: HEPARIN 5,000 UNIT/1 ML VIAL SUB-Q SCH ×2 (09:06→21:12)
[2021-01-18] MEDS: SCOPOLAMINE TRANSDERMAL PATCH 72 HR TD SCH (09:08)
--- NOTE | 2021-01-18 09:24 | Progress Note ---
Assessment and Plan Assessment: * ESRD previouasly on peritoneal dialysis; now on back up HD (on peritoneal dialysis for 2 years) * Small bowel obstruction --s/p ex-lap with jejuno-ileal anastamosis --s/p ex lap with extensive lysis of adhesions and two small bowel resections with primary anastamosis for SBO with necrotic segment small bowel. --s/p ex lap, resection of perforated anastamosis, washout and abthera wound vac placement. --s/p ex lap with right hemicolectomy. * Acute respiratory failure * Septic shock - resolved * Bacteremia - resolved * Hyperkalemia * Anemia of ESRD * Atrial fibrilation, new onset * Post op ileus Plan: * Continue HD MWF via left IJ permcath (12/27) * 4K bath with dialysis * UF as tolerated * Epogen 10k units w/ dialysis * Rate control per cardiology * Abx per primary team/ID * Nutrition per primary team * Maintatin MAP >65 * Surgery notes appreciated * He will also require outpatient hemodialysis chair prior to discharge * BUN noted to be elevated at 117. Probably due to catabolic state. Increase dialysis time to 4 hours. Recheck his chemistries tomorrow. May need additional dialysis tomorrow Subjective Date of service: 01/18/21 Principal diagnosis: Ac hypoxemic resp failure; Severe Sepsis; Peritonitis; Acute SBO; ESRD; CHF Interval history: Patient remains in IMCU. TPN and octreotide drip infusing. Denies any shortness of breath. Oxygen saturation 98% on room air. Objective - Vital Signs Vital signs: Vital Signs - 12hr 01/17/21 01/17/21 01/17/21 22:00 22:53 22:54 Temperature Pulse Rate 69 68 68 Pulse Rate [ From Monitor] Respiratory 8 L Rate Blood Pressure 151/61 161/47 161/47 O2 Sat by Pulse 100 Oximetry 01/17/21 01/18/21 01/18/21 23:00 00:00 01:00 Temperature 97.3 F L Pulse Rate 64 67 65 Pulse Rate [ 65 From Monitor] Respiratory 18 25 H 10 L Rate Blood Pressure 169/77 158/60 170/74 O2 Sat by Pulse 100 96 97 Oximetry 01/18/21 01/18/21 01/18/21 01:51 02:01 03:01 Temperature Pulse Rate 66 67 68 Pulse Rate [ From Monitor] Respiratory 16 17 Rate Blood Pressure 179/74 179/84 177/74 O2 Sat by Pulse 96 Oximetry 01/18/21 01/18/21 01/18/21 04:00 04:01 05:01 Temperature Pulse Rate 62 74 60 Pulse Rate [ 62 From Monitor] Respiratory 18 13 16 Rate Blood Pressure 166/87 180/81 O2 Sat by Pulse 97 97 Oximetry 01/18/21 01/18/21 01/18/21 05:54 05:55 06:00 Temperature Pulse Rate 65 65 64 Pulse Rate [ From Monitor] Respiratory 15 Rate Blood Pressure 180/88 180/88 176/86 O2 Sat by Pulse 96 Oximetry 01/18/21 01/18/21 01/18/21 07:00 09:06 09:07 Temperature 99.1 F Pulse Rate 70 69 73 Pulse Rate [ From Monitor] Respiratory 18 Rate Blood Pressure 178/76 153/94 153/94 O2 Sat by Pulse 98 Oximetry - General Appearance General appearance: well-developed, well-nourished, appears stated age EENT: PERRL, mucous membranes moist Neck: no JVD, no thyromegaly, no carotid bruit, supple, other (Left IJ PermCath in place) Respiratory: Present: Clear to Ascultation Cardiology: regular, normal heart rate Gastrointestinal: other (Midline incision noted with wound VAC in place. Drain noted in his right flank.) Integumentary: other (No edema) - Lab 01/18/21 04:19 01/18/21 04:19 Most recent lab results ABG pH 7.345 pH Units (7.350-7.450) L 01/07/21 17:14 ABG pCO2 40.3 mm Hg 01/07/21 17:14 ABG pO2 67.4 mm Hg (80.0-90.0) L 01/07/21 17:14 ABG HCO3 21.5 mmol/L (20.0-26.0) 01/07/21 17:14 ABG O2 Saturation 94.3 % (95.0-99.0) L 01/07/21 17:14 Calcium 8.5 mg/dL (8.4-10.2) 01/18/21 04:19 Phosphorus 4.70 mg/dL (2.5-4.5) H D 01/18/21 04:19 Magnesium 2.00 mg/dL (1.7-2.3) 01/18/21 04:19 Medications & Allergies - Medications Allergies/Adverse Reactions: Allergies No Known Allergies Allergy (Verified 06/09/20 15:27) Home Medications: Home Medications Medication Instructions Recorded Confirmed Last Taken Type Albuterol Mdi (or & Nicu Only) 2 puff IH QID PRN #1 inhalation 04/01/17 11/01/20 10/31/20 09:00 Rx [ProAir HFA Inhaler] Calcium Acetate 667 mg PO DAILY 04/20/20 11/01/20 10/31/20 09:00 History Centrum Men's Tablet 1 tab PO DAILY 04/20/20 11/01/20 10/31/20 09:00 History Cinacalcet 30 mg PO DAILY 04/20/20 11/01/20 10/31/20 09:00 History Dialyvite with Zinc Tablet 1 tab PO DAILY 04/20/20 11/01/20 10/31/20 09:00 History Magnesium 250 mg PO BID 04/20/20 11/01/20 10/31/20 17:00 History Triamcinolone 0.1% 1 1000units TRANSDERMA DAILY 04/20/20 11/01/20 10/31/20 09:00 History Vit B12/Folic Acid/B6/Aa No.15 1,000 mg PO DAILY 04/20/20 11/01/20 10/31/20 09:00 History amLODIPine 10 mg PO DAILY 06/09/20 11/01/20 10/31/20 09:00 History AtorvaSTATin 40 mg PO HS 11/01/20 11/01/20 10/31/20 21:00 History Benadryl 25 mg PO HS 11/01/20 11/01/20 10/31/20 21:00 History Diclofenac 1 TRANSDERMA QID 11/01/20 10/31/20 19:00 History Fluticasone Propionate 1 spray INTRANASAL DAILY 11/01/20 11/01/20 10/31/20 09:00 History Vitamin D3 2,000 units 11/01/20 10/31/20 09:00 History carvediloL 12.5 mg PO DAILY 11/01/20 11/01/20 10/31/20 09:00 History hydrALAZINE 100 mg PO TID 11/01/20 11/01/20 10/31/20 19:00 History Active Medications: Generic Name Dose Route Start Last Admin Trade Name Freq PRN Reason Stop Dose Admin Acetaminophen 650 mg 12/31/20 15:30 12/31/20 15:13 Acetaminophen 650 Mg Rect Supp CO 650 mg Q6H PRN Administration Non Cardiac Pain or Temp>100.5 Clonidine HCl 0.2 mg 01/11/21 10:00 01/11/21 09:24 Clonidine Tts 0.2 Mg/24 Hr Patch TD 0.2 mg We THOMAS Administration Dextrose 50 ml 01/14/21 17:59 01/15/21 12:08 Dextrose 50% In Water (25gm) 50 Ml Syringe IV 15 ml Q30MIN PRN Administration Hypoglycemia Protocol Digoxin 0.125 mg 01/09/21 12:00 01/17/21 12:57 Digoxin 0.5 Mg/2 Ml Inj IV 0.125 mg Q48H THOMAS Administration Famotidine 10 mg 12/24/20 13:00 01/18/21 09:05 Famotidine 20 Mg/2 Ml Inj IV 10 mg BID THOMAS Administration Haloperidol Lactate 5 mg 12/29/20 14:16 01/16/21 00:14 Haloperidol Lactate 5 Mg/1 Ml Inj IV 5 mg Q12H PRN Administration Agitation Heparin Sodium (Porcine) 5,000 unit 12/24/20 10:00 01/18/21 09:06 Heparin 5,000 Unit/1 Ml Vial SUB-Q 5,000 unit Q12HR THOMAS Administration Hydralazine HCl 10 mg 01/10/21 14:00 01/18/21 09:07 Hydralazine 20 Mg/1 Ml Inj IV 10 mg Q4HR THOMAS Administration Hydromorphone HCl 0.25 mg 01/09/21 10:53 01/16/21 21:48 Hydromorphone 1 Mg/1 Ml Inj IV 0.25 mg Q6H PRN Administration Pain , Severe (7-10) Hydrophilic Ointment 1 applic 12/31/20 06:39 01/11/21 21:28 Lip Therapy Vaseline TP 1 applic Q2HR PRN Administration Dry Lips Sodium Chloride 100 mls @ 999 mls/hr 01/12/21 09:20 Nacl 0.9% IV [place] PRN Hypotension Octreotide Acetate 500 mcg/ 101 mls @ 5.05 mls/hr 05/21/21 11:00 01/17/21 15:50 Sodium Chloride IV 25 mcg/hr TITR THOMAS 5.05 mls/hr Administration Protocol 25 MCG/HR Piperacillin Sod/Tazobactam Sod 2.25 gm in 50 mls @ 100 mls/hr 01/13/21 12:00 01/18/21 04:32 Zosyn/Ns 2.25 Gm/50ml IV 100 mls/hr Q8H THOMAS Administration Protocol Insulin Glargine 5 units 01/18/21 22:00 Insulin Glargine 100 Units/Ml SUB-Q QHS THOMAS Insulin Human Lispro 0 unit 01/03/21 12:00 01/18/21 06:17 Insulin Lispro 100 Unit/Ml SUB-Q Not Given Q6HR [facility] Protocol Metoprolol Tartrate 5 mg 12/30/20 12:00 01/18/21 09:06 Metoprolol Tartrate 5 Mg/5 Ml Inj IV 5 mg Q4HR THOMAS Administration Multi-Ingred Cream/Lotion/Oil/Oint 1 applic 12/31/20 06:39 Mineral Oil/Petrolatum, White Ophth Oint 3.5 Gm OU Q4HR PRN Dry Eye(s) Scopolamine 1 each 01/15/21 11:00 01/18/21 09:08 Scopolamine Transdermal Patch 72 Hr TD 1 each Q3D THOMAS Administration Sodium Chloride 10 ml 12/22/20 22:00 01/17/21 22:57 Sodium Chloride 0.9% 10 Ml Flush Syringe IV 10 ml BID THOMAS Administration Sodium Chloride 10 ml 12/22/20 19:42 01/09/21 17:27 Sodium Chloride 0.9% 10 Ml Flush Syringe IV 10 ml PRN PRN Administration LINE FLUSH
[2021-01-18] MEDS: cloNIDine TTS 0.2 MG/24 HR PATCH TD SCH (10:11)
[2021-01-18] MEDS: OCTREOTIDE 500 MCG in SODIUM CHLORIDE 0.9% 100 ML IV SCH (10:11)
--- NOTE | 2021-01-18 11:18 | Progress Note ---
Assessment and Plan POD#25 s/p ex lap with extensive lysis of adhesions and two small bowel resections with primary anastamosis for SBO with necrotic segment small bowel. POD#16 s/p ex lap, resection of perforated anastamosis, washout and abthera wound vac placement. POD#14 s/p ex lap with right hemicolectomy. POD#12 s/p ex lap, with jejunal-colonic anastamosis and closure of abdomen. Afebrile and stable. - concerned about a leak at his anastamosis. Clinically improved with decreased output that is becoming more serous. Blood supply was evaluated at time of last surgery with ICG and found to be adequate. Pt was on several days of steroids for tongue swelling which may have contributed to leak. Currently since he is stable and afebrile will treat like controlled fistua. He is extremely high risk for additional surgery with tissues that are extremely friable and previous scar tissue that makes his anatomy very difficult to manipulate. Will continue octreotide drip to try to slow down GI output. If he requires operative intervention will likely need to be left in discontinuity and eventual ileostomy as he has already failed two anastamoses. Continue HARIS drain suction with and NGT deccompression. Strict NPO except for small amount of ice chips. HARIS drain must be secured and kept in place. Prognosis is gaurded. Subjective Date of service: 01/18/21 Patient Reports: Positive: no new complaints, pain is less Narrative: no acute events overnight. Pt says he is sleep and still wants to go home. Objective Vital Signs - 12hr 01/18/21 01/18/21 01/18/21 00:00 01:00 01:51 Temperature 97.3 F L Pulse Rate 67 65 66 Pulse Rate [ 65 From Monitor] Respiratory 25 H 10 L Rate Blood Pressure 158/60 170/74 179/74 O2 Sat by Pulse 96 97 Oximetry 01/18/21 01/18/21 01/18/21 02:01 03:01 04:00 Temperature Pulse Rate 67 68 62 Pulse Rate [ 62 From Monitor] Respiratory 16 17 18 Rate Blood Pressure 179/84 177/74 O2 Sat by Pulse 96 97 Oximetry 01/18/21 01/18/21 01/18/21 04:01 05:01 05:54 Temperature Pulse Rate 74 60 65 Pulse Rate [ From Monitor] Respiratory 13 16 Rate Blood Pressure 166/87 180/81 180/88 O2 Sat by Pulse 97 Oximetry 01/18/21 01/18/21 01/18/21 05:55 06:00 07:00 Temperature 99.1 F Pulse Rate 65 64 70 Pulse Rate [ From Monitor] Respiratory 15 18 Rate Blood Pressure 180/88 176/86 178/76 O2 Sat by Pulse 96 98 Oximetry 01/18/21 01/18/21 01/18/21 09:06 09:07 10:11 Temperature Pulse Rate 69 73 72 Pulse Rate [ From Monitor] Respiratory Rate Blood Pressure 153/94 153/94 175/77 O2 Sat by Pulse Oximetry - General physical appearance well developed, no distress, no pain - Respiratory normal expansion, normal respiratory effort - Abdomen soft, not tender, other (HARIS drain bilious, 265 recorded output yesterday. NGT b ilioius, rectal tube placed with bilious liquid, wound vac in place with SS drainage) - Labs 01/18/21 04:19 01/18/21 04:19 Diabetes panel 01/18/21 Range/Units 04:19 Sodium 137 (137-145) mmol/L Potassium 4.1 (3.6-5.0) mmol/L Chloride 96.2 L (98-107) mmol/L Carbon Dioxide 22 (22-30) mmol/L BUN 117 H (9-20) mg/dL Creatinine 10.0 H (0.8-1.3) mg/dL Glucose 165 H (75-100) mg/dL Calcium 8.5 (8.4-10.2) mg/dL Triglycerides 73 (2-149) mg/dL Calcium panel 01/18/21 Range/Units 04:19 Calcium 8.5 (8.4-10.2) mg/dL Phosphorus 4.70 H D (2.5-4.5) mg/dL Pituitary panel 01/18/21 Range/Units 04:19 Sodium 137 (137-145) mmol/L Potassium 4.1 (3.6-5.0) mmol/L Chloride 96.2 L (98-107) mmol/L Carbon Dioxide 22 (22-30) mmol/L BUN 117 H (9-20) mg/dL Creatinine 10.0 H (0.8-1.3) mg/dL Glucose 165 H (75-100) mg/dL Calcium 8.5 (8.4-10.2) mg/dL Adrenal panel 01/18/21 Range/Units 04:19 Sodium 137 (137-145) mmol/L Potassium 4.1 (3.6-5.0) mmol/L Chloride 96.2 L (98-107) mmol/L Carbon Dioxide 22 (22-30) mmol/L BUN 117 H (9-20) mg/dL Creatinine 10.0 H (0.8-1.3) mg/dL Glucose 165 H (75-100) mg/dL Calcium 8.5 (8.4-10.2) mg/dL
--- NOTE | 2021-01-18 11:21 | Progress Note ---
Assessment and Plan Paroxysmal atrial fibrillation currently, he is sinus rhythm on telemetry Hx of nonischemic cardiomyopathy, resolving LVEF 50-55% by echo this presentation Small bowl obstruction status post emergency exploratory laparotomy for anastomotic leak status post exploratory laparotomy s/p ex lap, resection of perforated anastamosis, washout and abthera wound vac placement ESRD now on HD Anemia s/p PRBCs Patient remains on NPO status. Will continue intravenous digoxin, and intravenous metoprolol for paroxysmal atrial fibrillation. Patient is not a candidate for anticoagulation at this time due to his postoperative status and the presence of severe anemia. Otherwise, conservative cardiac management. Subjective Date of service: 01/18/21 Principal diagnosis: Ac hypoxemic resp failure; Severe Sepsis; Peritonitis; Acute SBO; ESRD; CHF Interval history: Patient is resting in bed and appears comfortable. Wants to go home. Sinus rhythm with occasional PVCs on telemetry. Objective Vital Signs Temp Pulse Pulse Resp BP Pulse Ox 01/18/21 10:11 72 175/77 01/18/21 09:07 73 153/94 01/18/21 09:06 69 153/94 01/18/21 07:00 99.1 F 70 18 178/76 98 01/18/21 06:00 64 15 176/86 96 01/18/21 05:55 65 180/88 01/18/21 05:54 65 180/88 01/18/21 05:01 60 16 180/81 97 01/18/21 04:01 74 13 166/87 01/18/21 04:00 62 62 18 97 01/18/21 03:01 68 17 177/74 01/18/21 02:01 67 16 179/84 96 01/18/21 01:51 66 179/74 01/18/21 01:00 65 10 L 170/74 97 01/18/21 00:00 97.3 F L 67 65 25 H 158/60 96 01/17/21 23:00 64 18 169/77 100 01/17/21 22:54 68 161/47 01/17/21 22:53 68 161/47 01/17/21 22:00 69 8 L 151/61 100 01/17/21 21:01 71 13 152/61 97 01/17/21 20:01 70 16 155/71 98 01/17/21 20:00 98.7 F 67 67 14 99 01/17/21 19:21 70 13 158/58 98 01/17/21 19:01 69 22 153/67 99 01/17/21 18:01 67 21 138/66 100 01/17/21 17:00 65 18 155/65 100 01/17/21 16:00 99.6 F 68 71 13 155/64 100 01/17/21 15:01 71 20 163/63 97 01/17/21 14:01 68 13 148/69 98 01/17/21 13:01 67 15 148/67 100 01/17/21 12:57 67 150/59 01/17/21 12:00 98.2 F 67 68 17 165/62 96 - Physical Examination General: No Apparent Distress HEENT: Positive: PERRL Neck: Positive: neck supple Cardiac: Positive: Reg Rate and Rhythm Lungs: Positive: Decreased Breath Sounds Abdomen: Positive: Other (post op) - Labs and Meds Lipids 01/18/21 Range/Units 04:19 Triglycerides 73 (2-149) mg/dL CBC 01/18/21 Range/Units 04:19 WBC 15.6 H (4.5-11.0) K/mm3 RBC 3.00 L (3.65-5.03) M/mm3 Hgb 9.2 L (11.8-15.2) gm/dl Hct 26.8 L (35.5-45.6) % Plt Count 329 (140-440) K/mm3 Comprehensive Metabolic Panel 01/18/21 Range/Units 04:19 Sodium 137 (137-145) mmol/L Potassium 4.1 (3.6-5.0) mmol/L Chloride 96.2 L (98-107) mmol/L Carbon Dioxide 22 (22-30) mmol/L BUN 117 H (9-20) mg/dL Creatinine 10.0 H (0.8-1.3) mg/dL Glucose 165 H (75-100) mg/dL Calcium 8.5 (8.4-10.2) mg/dL - Allied health notes Allied health notes reviewed: nursing
[2021-01-18] MEDS: DEXTROSE 50% IN WATER (25GM) 50 ML SYRINGE IV PRN ×3 (12:01→15:10)
--- NOTE | 2021-01-18 12:02 | Progress Note ---
Assessment and Plan Cultures: 12/22/2020 blood culture: Streptococcus bovis, Prevotella 12/22/2020 PD fluid culture: No growth 12/24/2020 tracheal aspirate culture: No growth 12/24/2020 blood culture: No growth 12/31/2020 sputum culture: No growth A/P: 60-year-old male with ESRD on PD, Crohn's disease, CHF, gastroesophageal reflux disease was admitted to the hospital with complaints of abdominal pain and fever: #Severe sepsis with shock: improved. Secondary to small bowel obstruction/necrotic bowel with associated peritonitis. Status post exploratory laparotomy on 12/23/2020 with extensive lysis, primary anastomosis, found to have necrotic segment of small bowel. #Small bowel obstruction/necrotic bowel: with concern for PD associated peritonitis: Nephrology and general surgery following. Status post exploratory laparotomy on 12/23/2020 with extensive lysis, primary anastomosis, found to have necrotic segment of small bowel. PD catheter remains in place. S/p ex lap, resection of perforated anastamosis, washout and abthera wound vac placement on 01/01. Repeat CT abdomen showed no new abscesses, noted small free fluid. S/p Exploratory laparotomy, Right hemicolectomy, Peritoneal lavage, Partial omentectomy, ABThera wound VAC placement on 01/03/2021. Complicated intra- abdominal situation per d/w Dr. Sanchez, plan to continue IV abx for now, has limited surgical options at this time. #Streptococcus bovis bacteremia and Prevotella bacteremia: secondary to above. TTE without obvious vegetations. Repeat blood cultures negative. #ESRD: Renally dose antibiotics. Used to be on PD. On HD. #Acute respiratory failure: off the vent. #Anemia: Severe. Recs: -continue supportive care, IV Zosyn, plan to stop at 3 weeks from last surgery end date: 01/24/2021 Yesika Denny MD, FACP [facility] O: [phone] F: [phone] Subjective Date of service: 01/18/21 Principal diagnosis: Ac hypoxemic resp failure; Severe Sepsis; Peritonitis; Acute SBO; ESRD; CHF Interval history: Afebrile. Denies any complaints. Objective - Exam Narrative Exam: Physical Exam: Constitutional: awake alert, NG tube + Head, Ears, Nose: Normocephalic, atraumatic. External ears, nose normal Eyes: Conjunctivae/corneas clear. No icterus. No ptosis. Neck: supple Cardiovascular: S1, S2 + Respiratory: AE fair bilaterally GI: distended, VAC +, bowel sounds hypo Musculoskeletal: No pedal edema, no cyanosis. Skin: No rash or abscess Hem/Lymphatic: No palpable cervical or supraclavicular nodes. No lymphangitis Psych: calm, no agitation Neurological: awake, alert, oriented, answering questions. - Constitutional Vitals: Vital Signs Temp Pulse Resp BP Pulse Ox 98.2 F 66 19 172/70 98 01/18/21 11:59 01/18/21 11:01 01/18/21 11:01 01/18/21 11:01 01/18/21 10:01 Temperature -Last 24 Hours Temperature 98.2 F Temperature 99.1 F Temperature 97.3 F Temperature 98.7 F Temperature 99.6 F - Labs CBC & Chem 7: 01/18/21 04:19 01/18/21 04:19 Labs: Abnormal lab results 01/17/21 01/18/21 01/18/21 Range/Units 11:58 00:07 04:19 WBC 15.6 H (4.5-11.0) K/mm3 RBC 3.00 L (3.65-5.03) M/mm3 Hgb 9.2 L (11.8-15.2) gm/dl Hct 26.8 L (35.5-45.6) % MCHC 35 H (32-34) % RDW 15.6 H (13.2-15.2) % Chloride (98-107) mmol/L BUN (9-20) mg/dL Creatinine (0.8-1.3) mg/dL Glucose (75-100) mg/dL POC Glucose 64 L 146 H (70-105) mg/dL Phosphorus (2.5-4.5) mg/dL 01/18/21 01/18/21 Range/Units 04:19 06:15 WBC (4.5-11.0) K/mm3 RBC (3.65-5.03) M/mm3 Hgb (11.8-15.2) gm/dl Hct (35.5-45.6) % MCHC (32-34) % RDW (13.2-15.2) % Chloride 96.2 L (98-107) mmol/L BUN 117 H (9-20) mg/dL Creatinine 10.0 H (0.8-1.3) mg/dL Glucose 165 H (75-100) mg/dL POC Glucose 189 H (70-105) mg/dL Phosphorus 4.70 H D (2.5-4.5) mg/dL
--- NOTE | 2021-01-18 14:00 | Progress Note ---
Assessment and Plan This is a 60 YO Male with ESRD on PD, GERD, Crohn's Disease, Nicotine Dependence, HTN, Systolic CHF(EF 35%) who presented to the emergency department on 12/22 with complaints of abdominal pain which began shortly after eating fast food rated 10/10 which is periumbilical, constant, associated with fever, nausea and multiple sites of vomiting and self-reported inability to undergo PD. In the emergency room patient underwent a CT scan of the abdomen/pelvis which revealed evidence of partial small bowel obstruction, symptoms were consistent with bacterial peritonitis. Patient was admitted to the hospital service with sepsis, peritonitis, and small bowel obstruction with consults to general surgery, nephrology, infectious disease and [facility]. On 01/06/21 the patient underwent an exploratory laparotomy, jejunal colonic anastomosis, and segmental small bowel resection. atient sleeping on room air. O2 saturation 98%. No acute respiratory distress. ABG's (01/07/21): pH 7.345 pH POC ABG pCO2 41.4 mmHg ABG pCO2 40.3 mm Hg POC ABG pO2 94.5 mmHg ABG pO2 67.4 mm Hg POC ABG HCO3 22.7 ABG O2 Saturation 94.3 % Patient afebrile . Has leukocytosis. Blood pressure 172/70. Patient is on Clonadine and metoprol. Management as per primary care. Chest x-ray reported There is decreased inspiration compared to yesterday's exam. Hazy opacity in the right perihilar region and larger area of infiltration in the left lower lung appears stable given differences in the level of inspiration. No large pleural effusion or pneumothorax. Patient presently on zosyn, s/c heparin, famotidine Patient was seen in IMCU. I spent critical care time of 31 minutes, review the chart, examining the patient, review labs and xrays, talking to the nursing staff, respiratory therapy . - Patient Problems (1) Nicotine dependence Current Visit: Yes Status: Acute Qualifiers: Nicotine product type: cigarettes Substance use status: in withdrawal Qualified Code(s): F17.213 - Nicotine dependence, cigarettes, with withdrawal Plan to address problem: Counseled patient to stop smoking. (2) SOB (shortness of breath) Current Visit: No Status: Acute Plan to address problem: Improved. Patient resting on room air at this time. O2 saturation 98%. (3) Atrial fibrillation Current Visit: Yes Status: Acute Plan to address problem: Management as per cardiology. (4) CHF (congestive heart failure) Current Visit: No Status: Acute Qualifiers: Heart failure chronicity: chronic Plan to address problem: Management as per cardiology. (5) Small bowel obstruction Current Visit: Yes Status: Acute Plan to address problem: On 01/06/21 the patient underwent an exploratory laparotomy, jejunal colonic anastomosis, and segmental small bowel resection. Management as per surgery. Continue incentive spirometry (6) Small intestinal gangrene Current Visit: Yes Status: Acute Plan to address problem: On 01/06/21 the patient underwent an exploratory laparotomy, jejunal colonic anastomosis, and segmental small bowel resection. Management as per surgery. Continue incentive spirometry (7) Accelerated hypertension Current Visit: No Status: Acute Plan to address problem: Management as per primary care. (8) Acute on chronic kidney disease, stage 3 Current Visit: No Status: Acute Plan to address problem: Management as per nephrology. Subjective Date of service: 01/18/21 Principal diagnosis: Ac hypoxemic resp failure; Severe Sepsis; Peritonitis; Acute SBO; ESRD; CHF Interval history: This is a 60 YO Male with ESRD on PD, GERD, Crohn's Disease, Nicotine Dep endence, HTN, Systolic CHF(EF 35%) who presented to the emergency department on 12/22 with complaints of abdominal pain which began shortly after eating fast food rated 10/10 which is periumbilical, constant, associated with fever, nausea and multiple sites of vomiting and self-reported inability to undergo PD. In the emergency room patient underwent a CT scan of the abdomen/pelvis which revealed evidence of partial small bowel obstruction, symptoms were consistent with bacterial peritonitis. Patient was admitted to the hospital service with sepsis, peritonitis, and small bowel obstruction with consults to general surgery, nephrology, infectious disease and [facility]. On 01/06/21 the patient underwent an exploratory laparotomy, jejunal colonic anastomosis, and segmental small bowel resection. Patient sleeping on room air. O2 saturation 98%. No acute respiratory distress. ABG's (01/07/21): pH 7.345 pH POC ABG pCO2 41.4 mmHg ABG pCO2 40.3 mm Hg POC ABG pO2 94.5 mmHg ABG pO2 67.4 mm Hg POC ABG HCO3 22.7 ABG O2 Saturation 94.3 % Patient afebrile . Has leukocytosis. Blood pressure 172/70. Patient is on Clonadine and metoprol. Management as per primary care. Chest x-ray reported There is decreased inspiration compared to yesterday's exam. Hazy opacity in the right perihilar region and larger area of infiltration in the left lower lung appears stable given differences in the level of inspiration. No large pleural effusion or pneumothorax. Patient presently on zosyn, s/c heparin, famotidine Objective Vital Signs - 12hr 01/18/21 01/18/21 01/18/21 02:01 03:01 04:00 Temperature Pulse Rate 67 68 62 Pulse Rate [ 62 From Monitor] Respiratory 16 17 18 Rate Blood Pressure 179/84 177/74 O2 Sat by Pulse 96 97 Oximetry 01/18/21 01/18/21 01/18/21 04:01 05:01 05:54 Temperature Pulse Rate 74 60 65 Pulse Rate [ From Monitor] Respiratory 13 16 Rate Blood Pressure 166/87 180/81 180/88 O2 Sat by Pulse 97 Oximetry 01/18/21 01/18/21 01/18/21 05:55 06:00 07:00 Temperature 99.1 F Pulse Rate 65 64 70 Pulse Rate [ From Monitor] Respiratory 15 18 Rate Blood Pressure 180/88 176/86 178/76 O2 Sat by Pulse 96 98 Oximetry 01/18/21 01/18/21 01/18/21 08:00 09:01 09:06 Temperature Pulse Rate 72 72 69 Pulse Rate [ 70 From Monitor] Respiratory 17 18 Rate Blood Pressure 170/80 153/94 153/94 O2 Sat by Pulse 97 Oximetry 01/18/21 01/18/21 01/18/21 09:07 10:01 10:11 Temperature Pulse Rate 73 69 72 Pulse Rate [ From Monitor] Respiratory 14 Rate Blood Pressure 153/94 175/77 175/77 O2 Sat by Pulse 98 Oximetry 01/18/21 01/18/21 11:01 11:59 Temperature 98.2 F Pulse Rate 66 Pulse Rate [ From Monitor] Respiratory 19 Rate Blood Pressure 172/70 O2 Sat by Pulse Oximetry Constitutional: no acute distress, asleep Eyes: non-icteric ENT: oropharynx moist, oropharyngeal exudate pre (improved), other (macroglossia improved) Neck: supple, no lymphadenopathy, no JVD Effort: normal Ascultation: Bilateral: diminished breath sounds, rales, rhonchi Percussion: Bilateral: not dull Cardiovascular: regular rate and rhythm Gastrointestinal: hypoactive bowel sounds, soft, non-tender, non-distended (protuberant), other (Midline abdominal incision ) Integumentary: other (Midline abdominal incision ) Extremities: no cyanosis, no edema, pulses normal, no ischemia or petechiae Neurologic: non-focal exam (grossly), pupils equal and round, CN II-XII normal, motor strength normal and (sedated) Psychiatric: other (Patient sleeping at this time.) CBC and BMP: 01/18/21 04:19 01/18/21 04:19 ABG, PT/INR, D-dimer: ABG ABG pH 7.345 pH Units (7.350-7.450) L 01/07/21 17:14 POC ABG pCO2 41.4 mmHg (32.0-48.0) 01/07/21 03:07 ABG pCO2 40.3 mm Hg 01/07/21 17:14 POC ABG pO2 94.5 mmHg (83-108) 01/07/21 03:07 ABG pO2 67.4 mm Hg (80.0-90.0) L 01/07/21 17:14 POC ABG HCO3 22.7 01/07/21 03:07 ABG O2 Saturation 94.3 % (95.0-99.0) L 01/07/21 17:14 PT/INR, D-dimer PT 16.9 Sec. (12.2-14.9) H 01/01/21 12:45 INR 1.39 (0.87-1.13) H 01/01/21 12:45 Abnormal lab findings: Abnormal Labs 12/22/20 12/22/20 12/22/20 14:38 14:38 14:38 WBC RBC Hgb 11.2 L Hct 35.0 L MCV MCHC RDW 16.7 H Plt Count Lymph % (Auto) [place] % (Auto) Lymph # (Auto) [place] # (Auto) Seg Neutrophils % Seg Neuts % (Manual) 94.0 H Lymphocytes % (Manual) 5.0 L Monocytes % (Manual) Seg Neutrophils # Seg Neutrophils # Man Lymphocytes # (Manual) 0.3 L Monocytes # (Manual) PT INR ABG pH POC ABG pCO2 POC ABG pO2 ABG pO2 ABG HCO3 ABG O2 Saturation ABG Base Excess ABG Hemoglobin ABG Oxyhemoglobin ABG Sodium ABG Potassium ABG Chloride ABG Glucose Oxyhemoglobin Sodium Potassium Chloride Carbon Dioxide BUN 58 H Creatinine 13.2 H Glucose 113 H POC Glucose Lactic Acid 3.60 H* Calcium Phosphorus Magnesium Total Bilirubin 1.30 H AST ALT Alkaline Phosphatase 155 H Total Protein Albumin Triglycerides Arterial Blood Glucose Arterial Blood Ionized Calcium Digoxin Crossmatch 12/22/20 12/22/20 12/23/20 16:26 17:47 05:22 WBC RBC Hgb Hct MCV MCHC RDW Plt Count Lymph % (Auto) [place] % (Auto) Lymph # (Auto) [place] # (Auto) Seg Neutrophils % Seg Neuts % (Manual) Lymphocytes % (Manual) Monocytes % (Manual) Seg Neutrophils # Seg Neutrophils # Man Lymphocytes # (Manual) Monocytes # (Manual) PT INR ABG pH POC ABG pCO2 POC ABG pO2 ABG pO2 ABG HCO3 ABG O2 Saturation ABG Base Excess ABG Hemoglobin ABG Oxyhemoglobin ABG Sodium ABG Potassium ABG Chloride ABG Glucose Oxyhemoglobin Sodium Potassium Chloride Carbon Dioxide BUN Creatinine Glucose POC Glucose Lactic Acid 2.80 H* 3.10 H* 2.30 H* Calcium Phosphorus Magnesium Total Bilirubin AST ALT Alkaline Phosphatase Total Protein Albumin Triglycerides Arterial Blood Glucose Arterial Blood Ionized Calcium Digoxin Crossmatch 12/23/20 12/23/20 12/23/20 05:22 05:22 06:35 WBC 12.1 H RBC Hgb 11.0 L Hct 33.7 L MCV MCHC RDW 16.9 H Plt Count Lymph % (Auto) [place] % (Auto) Lymph # (Auto) [place] # (Auto) Seg Neutrophils % Seg Neuts % (Manual) 93.0 H Lymphocytes % (Manual) 1.0 L Monocytes % (Manual) Seg Neutrophils # Seg Neutrophils # Man 11.3 H Lymphocytes # (Manual) 0.1 L Monocytes # (Manual) PT INR ABG pH POC ABG pCO2 POC ABG pO2 ABG pO2 ABG HCO3 ABG O2 Saturation ABG Base Excess ABG Hemoglobin ABG Oxyhemoglobin ABG Sodium ABG Potassium ABG Chloride ABG Glucose Oxyhemoglobin Sodium Potassium 5.7 H D Chloride Carbon Dioxide BUN 73 H Creatinine 14.2 H Glucose POC Glucose Lactic Acid 2.30 H* Calcium 7.9 L Phosphorus Magnesium Total Bilirubin 1.40 H AST 119 H ALT 130 H Alkaline Phosphatase 183 H Total Protein 6.1 L Albumin 3.6 L Triglycerides Arterial Blood Glucose Arterial Blood Ionized Calcium Digoxin Crossmatch 12/23/20 12/23/20 12/23/20 11:40 13:53 16:47 WBC RBC Hgb 10.0 L Hct 30.4 L MCV MCHC RDW Plt Count Lymph % (Auto) [place] % (Auto) Lymph # (Auto) [place] # (Auto) Seg Neutrophils % Seg Neuts % (Manual) Lymphocytes % (Manual) Monocytes % (Manual) Seg Neutrophils # Seg Neutrophils # Man Lymphocytes # (Manual) Monocytes # (Manual) PT INR ABG pH POC ABG pCO2 POC ABG pO2 137.5 H ABG pO2 ABG HCO3 ABG O2 Saturation ABG Base Excess ABG Hemoglobin 9.7 L ABG Oxyhemoglobin ABG Sodium 134.1 L ABG Potassium 6.6 H ABG Chloride ABG Glucose 103 H Oxyhemoglobin Sodium Potassium Chloride Carbon Dioxide BUN Creatinine Glucose POC Glucose Lactic Acid Calcium Phosphorus Magnesium Total Bilirubin AST ALT Alkaline Phosphatase Total Protein Albumin Triglycerides Arterial Blood Glucose 103 H Arterial Blood Ionized Calcium 3.8 L Digoxin Crossmatch See Detail 12/23/20 12/23/20 12/24/20 20:35 20:40 01:20 WBC RBC Hgb Hct MCV MCHC RDW Plt Count Lymph % (Auto) [place] % (Auto) Lymph # (Auto) [place] # (Auto) Seg Neutrophils % Seg Neuts % (Manual) Lymphocytes % (Manual) Monocytes % (Manual) Seg Neutrophils # Seg Neutrophils # Man Lymphocytes # (Manual) Monocytes # (Manual) PT INR ABG pH 7.252 L POC ABG pCO2 POC ABG pO2 ABG pO2 50.1 L ABG HCO3 ABG O2 Saturation 81.1 L ABG Base Excess -5.9 L ABG Hemoglobin 12.1 L ABG Oxyhemoglobin ABG Sodium ABG Potassium ABG Chloride ABG Glucose Oxyhemoglobin 78.6 L Sodium 134 L Potassium 6.9 H* D 6.3 H* Chloride Carbon Dioxide 18 L 20 L BUN 87 H 91 H Creatinine 15.3 H 15.3 H Glucose 103 H POC Glucose Lactic Acid Calcium 6.9 L 7.5 L Phosphorus Magnesium Total Bilirubin AST ALT Alkaline Phosphatase Total Protein Albumin Triglycerides Arterial Blood Glucose Arterial Blood Ionized Calcium Digoxin Crossmatch 12/24/20 12/24/20 12/24/20 04:00 10:29 10:29 WBC RBC 3.49 L Hgb 10.5 L Hct 31.2 L MCV MCHC RDW 17.5 H Plt Count 124 L Lymph % (Auto) 3.7 L [place] % (Auto) 9.8 H Lymph # (Auto) 0.2 L [place] # (Auto) Seg Neutrophils % 85.9 H Seg Neuts % (Manual) Lymphocytes % (Manual) Monocytes % (Manual) Seg Neutrophils # Seg Neutrophils # Man Lymphocytes # (Manual) Monocytes # (Manual) PT INR ABG pH POC ABG pCO2 28.1 L POC ABG pO2 ABG pO2 ABG HCO3 ABG O2 Saturation ABG Base Excess ABG Hemoglobin ABG Oxyhemoglobin ABG Sodium 133.9 L ABG Potassium 5.3 H ABG Chloride 108.0 H ABG Glucose Oxyhemoglobin Sodium Potassium 5.6 H Chloride Carbon Dioxide 19 L BUN 99 H Creatinine 16.9 H Glucose 52 L POC Glucose Lactic Acid Calcium 7.6 L Phosphorus Magnesium Total Bilirubin 3.50 H AST 67 H ALT 71 H Alkaline Phosphatase Total Protein 3.5 L D Albumin 2.1 L Triglycerides Arterial Blood Glucose Arterial Blood Ionized Calcium 4.0 L Digoxin Crossmatch 12/25/20 12/25/20 12/25/20 03:33 04:00 04:00 WBC 3.8 L RBC 2.90 L Hgb 8.6 L Hct 25.7 L MCV MCHC RDW 16.7 H Plt Count 113 L Lymph % (Auto) [place] % (Auto) Lymph # (Auto) [place] # (Auto) Seg Neutrophils % Seg Neuts % (Manual) Lymphocytes % (Manual) Monocytes % (Manual) Seg Neutrophils # Seg Neutrophils # Man Lymphocytes # (Manual) Monocytes # (Manual) PT INR ABG pH 7.544 H POC ABG pCO2 28.2 L POC ABG pO2 62.8 L ABG pO2 ABG HCO3 ABG O2 Saturation ABG Base Excess ABG Hemoglobin 9.3 L ABG Oxyhemoglobin 93.0 L ABG Sodium 130.3 L ABG Potassium ABG Chloride ABG Glucose 97 H Oxyhemoglobin Sodium Potassium Chloride Carbon Dioxide BUN 62 H Creatinine 11.4 H Glucose POC Glucose Lactic Acid Calcium 7.7 L Phosphorus 5.00 H Magnesium Total Bilirubin AST ALT Alkaline Phosphatase Total Protein Albumin Triglycerides Arterial Blood Glucose 97 H Arterial Blood Ionized Calcium 3.9 L Digoxin Crossmatch 05/0312/26/20 12/27/20 04:46 Unknown 03:40 WBC 4.1 L RBC 2.61 L Hgb 7.8 L Hct 23.4 L MCV MCHC RDW 17.1 H Plt Count 119 L Lymph % (Auto) 5.3 L [place] % (Auto) 10.6 H Lymph # (Auto) 0.2 L [place] # (Auto) Seg Neutrophils % 78.8 H Seg Neuts % (Manual) Lymphocytes % (Manual) Monocytes % (Manual) Seg Neutrophils # Seg Neutrophils # Man Lymphocytes # (Manual) Monocytes # (Manual) PT INR ABG pH 7.333 L 7.332 L POC ABG pCO2 POC ABG pO2 ABG pO2 ABG HCO3 26.9 H ABG O2 Saturation ABG Base Excess -2.4 L ABG Hemoglobin 6.8 L 7.2 L ABG Oxyhemoglobin ABG Sodium ABG Potassium ABG Chloride ABG Glucose Oxyhemoglobin 93.0 L 93.1 L Sodium Potassium Chloride Carbon Dioxide BUN Creatinine Glucose POC Glucose Lactic Acid Calcium Phosphorus Magnesium Total Bilirubin AST ALT Alkaline Phosphatase Total Protein Albumin Triglycerides Arterial Blood Glucose Arterial Blood Ionized Calcium Digoxin Crossmatch 12/27/20 12/27/20 12/27/20 06:40 06:40 11:22 WBC 4.4 L RBC 2.49 L Hgb 7.4 L Hct 22.4 L MCV MCHC RDW 17.1 H Plt Count 111 L Lymph % (Auto) 6.7 L [place] % (Auto) 12.6 H Lymph # (Auto) 0.3 L [place] # (Auto) Seg Neutrophils % 77.6 H Seg Neuts % (Manual) Lymphocytes % (Manual) Monocytes % (Manual) Seg Neutrophils # Seg Neutrophils # Man Lymphocytes # (Manual) Monocytes # (Manual) PT INR ABG pH POC ABG pCO2 POC ABG pO2 ABG pO2 ABG HCO3 ABG O2 Saturation ABG Base Excess ABG Hemoglobin ABG Oxyhemoglobin ABG Sodium ABG Potassium ABG Chloride ABG Glucose Oxyhemoglobin Sodium Potassium Chloride Carbon Dioxide BUN 64 H Creatinine 9.8 H Glucose 147 H POC Glucose 134 H Lactic Acid Calcium 8.3 L Phosphorus 5.00 H Magnesium Total Bilirubin 3.70 H AST 72 H ALT Alkaline Phosphatase 142 H Total Protein 5.1 L D Albumin 2.9 L Triglycerides Arterial Blood Glucose Arterial Blood Ionized Calcium Digoxin Crossmatch 12/27/20 12/27/2012/28/21 17:29 23:31 03:09 WBC RBC Hgb Hct MCV MCHC RDW Plt Count Lymph % (Auto) [place] % (Auto) Lymph # (Auto) [place] # (Auto) Seg Neutrophils % Seg Neuts % (Manual) Lymphocytes % (Manual) Monocytes % (Manual) Seg Neutrophils # Seg Neutrophils # Man Lymphocytes # (Manual) Monocytes # (Manual) PT INR ABG pH 7.474 H POC ABG pCO2 POC ABG pO2 ABG pO2 ABG HCO3 ABG O2 Saturation ABG Base Excess ABG Hemoglobin 7.8 L ABG Oxyhemoglobin ABG Sodium ABG Potassium ABG Chloride ABG Glucose Oxyhemoglobin Sodium Potassium Chloride Carbon Dioxide BUN Creatinine Glucose POC Glucose 121 H 131 H Lactic Acid Calcium Phosphorus Magnesium Total Bilirubin AST ALT Alkaline Phosphatase Total Protein Albumin Triglycerides Arterial Blood Glucose Arterial Blood Ionized Calcium Digoxin Crossmatch 12/28/20 12/28/20 12/28/20 05:37 05:40 05:40 WBC 4.3 L RBC 2.40 L Hgb 7.2 L Hct 21.5 L MCV MCHC RDW 17.4 H Plt Count 112 L Lymph % (Auto) 6.5 L [place] % (Auto) 16.7 H Lymph # (Auto) 0.3 L [place] # (Auto) Seg Neutrophils % 71.1 H Seg Neuts % (Manual) Lymphocytes % (Manual) Monocytes % (Manual) Seg Neutrophils # Seg Neutrophils # Man Lymphocytes # (Manual) Monocytes # (Manual) PT INR ABG pH POC ABG pCO2 POC ABG pO2 ABG pO2 ABG HCO3 ABG O2 Saturation ABG Base Excess ABG Hemoglobin ABG Oxyhemoglobin ABG Sodium ABG Potassium ABG Chloride ABG Glucose Oxyhemoglobin Sodium Potassium Chloride Carbon Dioxide BUN 85 H Creatinine 11.5 H Glucose 132 H POC Glucose 121 H Lactic Acid Calcium 8.2 L Phosphorus Magnesium 2.40 H Total Bilirubin 3.80 H AST 70 H ALT Alkaline Phosphatase 176 H Total Protein 5.0 L Albumin 2.9 L Triglycerides Arterial Blood Glucose Arterial Blood Ionized Calcium Digoxin Crossmatch 12/28/20 12/28/20 12/28/20 11:34 15:00 17:35 WBC RBC Hgb Hct MCV MCHC RDW Plt Count Lymph % (Auto) [place] % (Auto) Lymph # (Auto) [place] # (Auto) Seg Neutrophils % Seg Neuts % (Manual) Lymphocytes % (Manual) Monocytes % (Manual) Seg Neutrophils # Seg Neutrophils # Man Lymphocytes # (Manual) Monocytes # (Manual) PT INR ABG pH 7.461 H POC ABG pCO2 POC ABG pO2 72.2 L ABG pO2 ABG HCO3 ABG O2 Saturation ABG Base Excess ABG Hemoglobin 8.2 L ABG Oxyhemoglobin 93.6 L ABG Sodium 134.1 L ABG Potassium 3.2 L ABG Chloride ABG Glucose 135 H Oxyhemoglobin Sodium Potassium Chloride Carbon Dioxide BUN Creatinine Glucose POC Glucose 137 H 144 H Lactic Acid Calcium Phosphorus Magnesium Total Bilirubin AST ALT Alkaline Phosphatase Total Protein Albumin Triglycerides Arterial Blood Glucose 135 H Arterial Blood Ionized Calcium 4.4 L Digoxin Crossmatch 12/28/20 12/28/20 12/29/20 19:44 Unknown 00:21 WBC RBC Hgb Hct MCV MCHC RDW Plt Count Lymph % (Auto) [place] % (Auto) Lymph # (Auto) [place] # (Auto) Seg Neutrophils % Seg Neuts % (Manual) Lymphocytes % (Manual) Monocytes % (Manual) Seg Neutrophils # Seg Neutrophils # Man Lymphocytes # (Manual) Monocytes # (Manual) PT INR ABG pH 7.474 H POC ABG pCO2 POC ABG pO2 ABG pO2 ABG HCO3 ABG O2 Saturation ABG Base Excess ABG Hemoglobin 7.8 L ABG Oxyhemoglobin ABG Sodium 133.2 L ABG Potassium ABG Chloride ABG Glucose 139 H Oxyhemoglobin Sodium 135 L Potassium Chloride 96.6 L Carbon Dioxide BUN 47 H Creatinine 7.4 H Glucose 130 H POC Glucose 142 H Lactic Acid Calcium 8.3 L Phosphorus Magnesium Total Bilirubin AST ALT Alkaline Phosphatase Total Protein Albumin Triglycerides Arterial Blood Glucose 139 H Arterial Blood Ionized Calcium 4.3 L Digoxin Crossmatch 12/29/20 12/29/20 12/29/20 05:16 05:16 05:26 WBC RBC 2.53 L Hgb 7.7 L Hct 22.8 L MCV MCHC RDW 17.0 H Plt Count 130 L Lymph % (Auto) [place] % (Auto) Lymph # (Auto) [place] # (Auto) Seg Neutrophils % Seg Neuts % (Manual) 79.0 H Lymphocytes % (Manual) 9.0 L Monocytes % (Manual) Seg Neutrophils # Seg Neutrophils # Man Lymphocytes # (Manual) 0.6 L Monocytes # (Manual) PT INR ABG pH POC ABG pCO2 POC ABG pO2 ABG pO2 ABG HCO3 ABG O2 Saturation ABG Base Excess ABG Hemoglobin ABG Oxyhemoglobin ABG Sodium ABG Potassium ABG Chloride ABG Glucose Oxyhemoglobin Sodium Potassium 3.4 L Chloride 96.6 L Carbon Dioxide BUN 59 H Creatinine 8.3 H Glucose 127 H POC Glucose 141 H Lactic Acid Calcium 8.2 L Phosphorus Magnesium Total Bilirubin 3.00 H AST 88 H ALT Alkaline Phosphatase 188 H Total Protein 5.1 L Albumin 2.8 L Triglycerides Arterial Blood Glucose Arterial Blood Ionized Calcium Digoxin Crossmatch 12/29/20 12/29/20 12/29/20 11:33 17:29 23:22 WBC RBC Hgb Hct MCV MCHC RDW Plt Count Lymph % (Auto) [place] % (Auto) Lymph # (Auto) [place] # (Auto) Seg Neutrophils % Seg Neuts % (Manual) Lymphocytes % (Manual) Monocytes % (Manual) Seg Neutrophils # Seg Neutrophils # Man Lymphocytes # (Manual) Monocytes # (Manual) PT INR ABG pH POC ABG pCO2 POC ABG pO2 ABG pO2 ABG HCO3 ABG O2 Saturation ABG Base Excess ABG Hemoglobin ABG Oxyhemoglobin ABG Sodium ABG Potassium ABG Chloride ABG Glucose Oxyhemoglobin Sodium Potassium Chloride Carbon Dioxide BUN Creatinine Glucose POC Glucose 144 H 130 H 117 H Lactic Acid Calcium Phosphorus Magnesium Total Bilirubin AST ALT Alkaline Phosphatase Total Protein Albumin Triglycerides Arterial Blood Glucose Arterial Blood Ionized Calcium Digoxin Crossmatch 12/30/20 12/30/20 12/30/20 05:23 08:15 09:00 WBC RBC Hgb Hct MCV MCHC RDW Plt Count Lymph % (Auto) [place] % (Auto) Lymph # (Auto) [place] # (Auto) Seg Neutrophils % Seg Neuts % (Manual) Lymphocytes % (Manual) Monocytes % (Manual) Seg Neutrophils # Seg Neutrophils # Man Lymphocytes # (Manual) Monocytes # (Manual) PT INR ABG pH POC ABG pCO2 POC ABG pO2 ABG pO2 ABG HCO3 ABG O2 Saturation ABG Base Excess ABG Hemoglobin ABG Oxyhemoglobin ABG Sodium ABG Potassium ABG Chloride ABG Glucose Oxyhemoglobin Sodium 135 L Potassium Chloride 95.9 L Carbon Dioxide BUN 85 H Creatinine 10.6 H Glucose 128 H POC Glucose 135 H 127 H Lactic Acid Calcium 8.3 L Phosphorus Magnesium Total Bilirubin 2.40 H AST 85 H ALT Alkaline Phosphatase 216 H Total Protein 5.3 L Albumin 2.6 L Triglycerides 155 H Arterial Blood Glucose Arterial Blood Ionized Calcium Digoxin Crossmatch 12/30/20 12/30/20 12/30/20 09:00 11:53 15:49 WBC RBC 2.61 L Hgb 7.8 L Hct 23.7 L MCV MCHC RDW 17.3 H Plt Count Lymph % (Auto) [place] % (Auto) Lymph # (Auto) [place] # (Auto) Seg Neutrophils % Seg Neuts % (Manual) Lymphocytes % (Manual) Monocytes % (Manual) Seg Neutrophils # Seg Neutrophils # Man Lymphocytes # (Manual) Monocytes # (Manual) PT INR ABG pH POC ABG pCO2 POC ABG pO2 ABG pO2 ABG HCO3 ABG O2 Saturation ABG Base Excess ABG Hemoglobin ABG Oxyhemoglobin ABG Sodium ABG Potassium ABG Chloride ABG Glucose Oxyhemoglobin Sodium Potassium Chloride Carbon Dioxide BUN Creatinine Glucose POC Glucose 155 H 146 H Lactic Acid Calcium Phosphorus Magnesium Total Bilirubin AST ALT Alkaline Phosphatase Total Protein Albumin Triglycerides Arterial Blood Glucose Arterial Blood Ionized Calcium Digoxin Crossmatch 12/30/20 12/30/20 12/31/20 17:53 23:45 03:56 WBC RBC Hgb Hct MCV MCHC RDW Plt Count Lymph % (Auto) [place] % (Auto) Lymph # (Auto) [place] # (Auto) Seg Neutrophils % Seg Neuts % (Manual) Lymphocytes % (Manual) Monocytes % (Manual) Seg Neutrophils # Seg Neutrophils # Man Lymphocytes # (Manual) Monocytes # (Manual) PT INR ABG pH POC ABG pCO2 POC ABG pO2 49.4 L ABG pO2 ABG HCO3 ABG O2 Saturation ABG Base Excess ABG Hemoglobin 10.3 L ABG Oxyhemoglobin 84.2 L ABG Sodium 133.1 L ABG Potassium ABG Chloride ABG Glucose 173 H Oxyhemoglobin Sodium Potassium Chloride Carbon Dioxide BUN Creatinine Glucose POC Glucose 139 H 173 H Lactic Acid Calcium Phosphorus Magnesium Total Bilirubin AST ALT Alkaline Phosphatase Total Protein Albumin Triglycerides Arterial Blood Glucose 173 H Arterial Blood Ionized Calcium Digoxin Crossmatch 12/31/20 12/31/20 12/31/20 05:07 06:51 06:51 WBC 20.3 H RBC 3.32 L Hgb 9.8 L Hct 30.3 L D MCV MCHC RDW 17.3 H Plt Count Lymph % (Auto) [place] % (Auto) Lymph # (Auto) [place] # (Auto) Seg Neutrophils % Seg Neuts % (Manual) 87.0 H Lymphocytes % (Manual) 10.0 L Monocytes % (Manual) Seg Neutrophils # Seg Neutrophils # Man 17.7 H Lymphocytes # (Manual) Monocytes # (Manual) PT INR ABG pH POC ABG pCO2 POC ABG pO2 ABG pO2 ABG HCO3 ABG O2 Saturation ABG Base Excess ABG Hemoglobin ABG Oxyhemoglobin ABG Sodium ABG Potassium ABG Chloride ABG Glucose Oxyhemoglobin Sodium Potassium 5.2 H D Chloride Carbon Dioxide BUN 62 H Creatinine 8.4 H Glucose 116 H POC Glucose 120 H Lactic Acid Calcium Phosphorus Magnesium 1.60 L Total Bilirubin AST ALT Alkaline Phosphatase Total Protein Albumin Triglycerides Arterial Blood Glucose Arterial Blood Ionized Calcium Digoxin Crossmatch 12/31/20 12/31/20 12/31/20 09:38 12:19 12:22 WBC RBC Hgb Hct MCV MCHC RDW Plt Count Lymph % (Auto) [place] % (Auto) Lymph # (Auto) [place] # (Auto) Seg Neutrophils % Seg Neuts % (Manual) Lymphocytes % (Manual) Monocytes % (Manual) Seg Neutrophils # Seg Neutrophils # Man Lymphocytes # (Manual) Monocytes # (Manual) PT INR ABG pH POC ABG pCO2 POC ABG pO2 ABG pO2 354.0 H ABG HCO3 ABG O2 Saturation 99.6 H ABG Base Excess ABG Hemoglobin 9.1 L ABG Oxyhemoglobin ABG Sodium ABG Potassium ABG Chloride ABG Glucose Oxyhemoglobin Sodium Potassium 5.2 H Chloride Carbon Dioxide BUN Creatinine Glucose POC Glucose 132 H Lactic Acid Calcium Phosphorus Magnesium Total Bilirubin AST ALT Alkaline Phosphatase Total Protein Albumin Triglycerides Arterial Blood Glucose Arterial Blood Ionized Calcium Digoxin Crossmatch 12/31/20 01/01/21 01/01/21 23:23 03:03 05:04 WBC RBC Hgb Hct MCV MCHC RDW Plt Count Lymph % (Auto) [place] % (Auto) Lymph # (Auto) [place] # (Auto) Seg Neutrophils % Seg Neuts % (Manual) Lymphocytes % (Manual) Monocytes % (Manual) Seg Neutrophils # Seg Neutrophils # Man Lymphocytes # (Manual) Monocytes # (Manual) PT INR ABG pH POC ABG pCO2 POC ABG pO2 79.6 L ABG pO2 ABG HCO3 ABG O2 Saturation ABG Base Excess ABG Hemoglobin 9.2 L ABG Oxyhemoglobin ABG Sodium 131.6 L ABG Potassium 5.8 H ABG Chloride ABG Glucose 177 H Oxyhemoglobin Sodium Potassium Chloride Carbon Dioxide BUN Creatinine Glucose POC Glucose 174 H 167 H Lactic Acid Calcium Phosphorus Magnesium Total Bilirubin AST ALT Alkaline Phosphatase Total Protein Albumin Triglycerides Arterial Blood Glucose 177 H Arterial Blood Ionized Calcium Digoxin Crossmatch 01/01/21 01/01/21 01/01/21 07:31 07:31 11:31 WBC 26.1 H RBC 2.95 L Hgb 8.6 L Hct 27.1 L MCV MCHC RDW 18.2 H Plt Count Lymph % (Auto) [place] % (Auto) Lymph # (Auto) [place] # (Auto) Seg Neutrophils % Seg Neuts % (Manual) 96.0 H Lymphocytes % (Manual) 4.0 L Monocytes % (Manual) Seg Neutrophils # Seg Neutrophils # Man 25.1 H Lymphocytes # (Manual) 1.0 L Monocytes # (Manual) PT INR ABG pH POC ABG pCO2 POC ABG pO2 ABG pO2 ABG HCO3 ABG O2 Saturation ABG Base Excess ABG Hemoglobin ABG Oxyhemoglobin ABG Sodium ABG Potassium ABG Chloride ABG Glucose Oxyhemoglobin Sodium Potassium 6.0 H Chloride Carbon Dioxide 21 L BUN 89 H Creatinine 10.5 H Glucose 179 H POC Glucose Lactic Acid Calcium Phosphorus Magnesium Total Bilirubin AST ALT Alkaline Phosphatase Total Protein Albumin Triglycerides Arterial Blood Glucose Arterial Blood Ionized Calcium Digoxin Crossmatch See Detail 01/01/21 01/01/21 01/01/21 11:51 12:45 16:52 WBC RBC Hgb Hct MCV MCHC RDW Plt Count Lymph % (Auto) [place] % (Auto) Lymph # (Auto) [place] # (Auto) Seg Neutrophils % Seg Neuts % (Manual) Lymphocytes % (Manual) Monocytes % (Manual) Seg Neutrophils # Seg Neutrophils # Man Lymphocytes # (Manual) Monocytes # (Manual) PT 16.9 H INR 1.39 H ABG pH POC ABG pCO2 POC ABG pO2 ABG pO2 ABG HCO3 ABG O2 Saturation ABG Base Excess ABG Hemoglobin ABG Oxyhemoglobin ABG Sodium ABG Potassium ABG Chloride ABG Glucose Oxyhemoglobin Sodium Potassium Chloride Carbon Dioxide BUN Creatinine Glucose POC Glucose 157 H 177 H Lactic Acid Calcium Phosphorus Magnesium Total Bilirubin AST ALT Alkaline Phosphatase Total Protein Albumin Triglycerides Arterial Blood Glucose Arterial Blood Ionized Calcium Digoxin Crossmatch 01/01/21 01/01/21 01/01/21 17:58 17:58 20:12 WBC 26.9 H RBC 3.14 L Hgb 9.3 L Hct 29.6 L MCV MCHC RDW 17.5 H Plt Count Lymph % (Auto) [place] % (Auto) Lymph # (Auto) [place] # (Auto) Seg Neutrophils % Seg Neuts % (Manual) 84.0 H Lymphocytes % (Manual) 4.0 L Monocytes % (Manual) 12.0 H Seg Neutrophils # Seg Neutrophils # Man 22.6 H Lymphocytes # (Manual) 1.1 L Monocytes # (Manual) 3.2 H PT INR ABG pH POC ABG pCO2 POC ABG pO2 ABG pO2 ABG HCO3 ABG O2 Saturation ABG Base Excess ABG Hemoglobin ABG Oxyhemoglobin ABG Sodium ABG Potassium ABG Chloride ABG Glucose Oxyhemoglobin Sodium 136 L Potassium 6.2 H* Chloride Carbon Dioxide 21 L BUN 92 H Creatinine 10.8 H Glucose 171 H POC Glucose 288 H Lactic Acid Calcium Phosphorus Magnesium Total Bilirubin 2.10 H AST 223 H ALT 100 H Alkaline Phosphatase 206 H Total Protein 4.8 L Albumin 1.9 L Triglycerides Arterial Blood Glucose Arterial Blood Ionized Calcium Digoxin Crossmatch 01/02/21 01/02/21 01/02/21 00:12 00:45 03:05 WBC RBC Hgb Hct MCV MCHC RDW Plt Count Lymph % (Auto) [place] % (Auto) Lymph # (Auto) [place] # (Auto) Seg Neutrophils % Seg Neuts % (Manual) Lymphocytes % (Manual) Monocytes % (Manual) Seg Neutrophils # Seg Neutrophils # Man Lymphocytes # (Manual) Monocytes # (Manual) PT INR ABG pH POC ABG pCO2 POC ABG pO2 81.8 L ABG pO2 ABG HCO3 ABG O2 Saturation ABG Base Excess ABG Hemoglobin 8.0 L ABG Oxyhemoglobin ABG Sodium 129.8 L ABG Potassium 5.4 H ABG Chloride ABG Glucose 257 H Oxyhemoglobin Sodium 136 L Potassium 5.8 H Chloride 96.6 L Carbon Dioxide BUN 95 H Creatinine 11.2 H Glucose 238 H POC Glucose 223 H Lactic Acid Calcium Phosphorus Magnesium Total Bilirubin AST ALT Alkaline Phosphatase Total Protein Albumin Triglycerides Arterial Blood Glucose 257 H Arterial Blood Ionized Calcium 4.0 L Digoxin Crossmatch 01/02/21 01/02/21 01/02/21 06:25 08:00 08:00 WBC 17.5 H RBC 2.31 L Hgb 6.7 L Hct 22.1 L D MCV 96 H MCHC 30 L RDW 18.4 H Plt Count Lymph % (Auto) [place] % (Auto) Lymph # (Auto) [place] # (Auto) Seg Neutrophils % Seg Neuts % (Manual) Lymphocytes % (Manual) Monocytes % (Manual) Seg Neutrophils # Seg Neutrophils # Man Lymphocytes # (Manual) Monocytes # (Manual) PT INR ABG pH POC ABG pCO2 POC ABG pO2 ABG pO2 ABG HCO3 ABG O2 Saturation ABG Base Excess ABG Hemoglobin ABG Oxyhemoglobin ABG Sodium ABG Potassium ABG Chloride ABG Glucose Oxyhemoglobin Sodium 134 L Potassium 5.3 H Chloride 92.9 L Carbon Dioxide BUN 101 H Creatinine 10.9 H Glucose 560 H* POC Glucose 239 H Lactic Acid Calcium 7.6 L Phosphorus 6.50 H Magnesium Total Bilirubin AST ALT Alkaline Phosphatase Total Protein Albumin Triglycerides Arterial Blood Glucose Arterial Blood Ionized Calcium Digoxin Crossmatch 01/02/21 01/02/21 01/02/21 11:26 15:00 17:57 WBC RBC Hgb Hct MCV MCHC RDW Plt Count Lymph % (Auto) [place] % (Auto) Lymph # (Auto) [place] # (Auto) Seg Neutrophils % Seg Neuts % (Manual) Lymphocytes % (Manual) Monocytes % (Manual) Seg Neutrophils # Seg Neutrophils # Man Lymphocytes # (Manual) Monocytes # (Manual) PT INR ABG pH POC ABG pCO2 POC ABG pO2 ABG pO2 ABG HCO3 ABG O2 Saturation ABG Base Excess ABG Hemoglobin ABG Oxyhemoglobin ABG Sodium ABG Potassium ABG Chloride ABG Glucose Oxyhemoglobin Sodium Potassium Chloride Carbon Dioxide BUN Creatinine Glucose 241 H POC Glucose 205 H 272 H Lactic Acid Calcium Phosphorus Magnesium Total Bilirubin AST ALT Alkaline Phosphatase Total Protein Albumin Triglycerides Arterial Blood Glucose Arterial Blood Ionized Calcium Digoxin Crossmatch 01/02/21 01/02/21 01/03/21 23:25 23:43 03:45 WBC RBC Hgb Hct MCV MCHC RDW Plt Count Lymph % (Auto) [place] % (Auto) Lymph # (Auto) [place] # (Auto) Seg Neutrophils % Seg Neuts % (Manual) Lymphocytes % (Manual) Monocytes % (Manual) Seg Neutrophils # Seg Neutrophils # Man Lymphocytes # (Manual) Monocytes # (Manual) PT INR ABG pH POC ABG pCO2 48.3 H POC ABG pO2 134.4 H 79.7 L ABG pO2 ABG HCO3 ABG O2 Saturation ABG Base Excess ABG Hemoglobin 7.7 L 8.6 L ABG Oxyhemoglobin ABG Sodium 131.8 L 130.4 L ABG Potassium ABG Chloride 97.0 L ABG Glucose 218 H 238 H Oxyhemoglobin Sodium Potassium Chloride Carbon Dioxide BUN Creatinine Glucose POC Glucose 218 H Lactic Acid Calcium Phosphorus Magnesium Total Bilirubin AST ALT Alkaline Phosphatase Total Protein Albumin Triglycerides Arterial Blood Glucose 218 H 238 H Arterial Blood Ionized Calcium 4.1 L 4.0 L Digoxin Crossmatch 01/03/21 01/03/21 01/03/21 04:37 04:37 05:39 WBC 15.2 H RBC 2.38 L Hgb 7.3 L Hct 21.6 L MCV MCHC RDW 16.6 H Plt Count Lymph % (Auto) [place] % (Auto) Lymph # (Auto) [place] # (Auto) Seg Neutrophils % Seg Neuts % (Manual) Lymphocytes % (Manual) Monocytes % (Manual) Seg Neutrophils # Seg Neutrophils # Man Lymphocytes # (Manual) Monocytes # (Manual) PT INR ABG pH POC ABG pCO2 POC ABG pO2 ABG pO2 ABG HCO3 ABG O2 Saturation ABG Base Excess ABG Hemoglobin ABG Oxyhemoglobin ABG Sodium ABG Potassium ABG Chloride ABG Glucose Oxyhemoglobin Sodium 136 L Potassium Chloride 94.5 L Carbon Dioxide BUN 69 H Creatinine 8.0 H Glucose 219 H POC Glucose 222 H Lactic Acid Calcium 7.8 L Phosphorus 4.80 H D Magnesium Total Bilirubin AST ALT Alkaline Phosphatase Total Protein Albumin Triglycerides Arterial Blood Glucose Arterial Blood Ionized Calcium Digoxin Crossmatch 01/03/21 01/03/21 01/03/21 11:29 18:49 23:37 WBC RBC Hgb Hct MCV MCHC RDW Plt Count Lymph % (Auto) [place] % (Auto) Lymph # (Auto) [place] # (Auto) Seg Neutrophils % Seg Neuts % (Manual) Lymphocytes % (Manual) Monocytes % (Manual) Seg Neutrophils # Seg Neutrophils # Man Lymphocytes # (Manual) Monocytes # (Manual) PT INR ABG pH POC ABG pCO2 POC ABG pO2 ABG pO2 ABG HCO3 ABG O2 Saturation ABG Base Excess ABG Hemoglobin ABG Oxyhemoglobin ABG Sodium ABG Potassium ABG Chloride ABG Glucose Oxyhemoglobin Sodium Potassium Chloride Carbon Dioxide BUN Creatinine Glucose POC Glucose 232 H 129 H 140 H Lactic Acid Calcium Phosphorus Magnesium Total Bilirubin AST ALT Alkaline Phosphatase Total Protein Albumin Triglycerides Arterial Blood Glucose Arterial Blood Ionized Calcium Digoxin Crossmatch 01/04/21 01/04/21 01/04/21 03:22 04:38 04:38 WBC 11.1 H RBC 2.89 L Hgb 8.9 L Hct 26.2 L MCV MCHC RDW 16.1 H Plt Count Lymph % (Auto) [place] % (Auto) Lymph # (Auto) [place] # (Auto) Seg Neutrophils % Seg Neuts % (Manual) Lymphocytes % (Manual) Monocytes % (Manual) Seg Neutrophils # Seg Neutrophils # Man Lymphocytes # (Manual) Monocytes # (Manual) PT INR ABG pH POC ABG pCO2 POC ABG pO2 82.3 L ABG pO2 ABG HCO3 ABG O2 Saturation ABG Base Excess ABG Hemoglobin 8.9 L ABG Oxyhemoglobin ABG Sodium 130.5 L ABG Potassium ABG Chloride ABG Glucose 124 H Oxyhemoglobin Sodium Potassium Chloride 95.5 L Carbon Dioxide BUN 87 H Creatinine 9.7 H Glucose 118 H POC Glucose Lactic Acid Calcium 7.7 L Phosphorus Magnesium Total Bilirubin AST ALT Alkaline Phosphatase Total Protein Albumin Triglycerides Arterial Blood Glucose 124 H Arterial Blood Ionized Calcium 3.5 L Digoxin Crossmatch 01/04/21 01/04/21 01/04/21 05:39 12:04 18:04 WBC RBC Hgb Hct MCV MCHC RDW Plt Count Lymph % (Auto) [place] % (Auto) Lymph # (Auto) [place] # (Auto) Seg Neutrophils % Seg Neuts % (Manual) Lymphocytes % (Manual) Monocytes % (Manual) Seg Neutrophils # Seg Neutrophils # Man Lymphocytes # (Manual) Monocytes # (Manual) PT INR ABG pH POC ABG pCO2 POC ABG pO2 ABG pO2 ABG HCO3 ABG O2 Saturation ABG Base Excess ABG Hemoglobin ABG Oxyhemoglobin ABG Sodium ABG Potassium ABG Chloride ABG Glucose Oxyhemoglobin Sodium Potassium Chloride Carbon Dioxide BUN Creatinine Glucose POC Glucose 134 H 125 H 131 H Lactic Acid Calcium Phosphorus Magnesium Total Bilirubin AST ALT Alkaline Phosphatase Total Protein Albumin Triglycerides Arterial Blood Glucose Arterial Blood Ionized Calcium Digoxin Crossmatch 01/04/21 01/05/21 01/05/21 23:41 03:23 04:49 WBC RBC Hgb Hct MCV MCHC RDW Plt Count Lymph % (Auto) [place] % (Auto) Lymph # (Auto) [place] # (Auto) Seg Neutrophils % Seg Neuts % (Manual) Lymphocytes % (Manual) Monocytes % (Manual) Seg Neutrophils # Seg Neutrophils # Man Lymphocytes # (Manual) Monocytes # (Manual) PT INR ABG pH POC ABG pCO2 POC ABG pO2 62.8 L ABG pO2 ABG HCO3 ABG O2 Saturation ABG Base Excess ABG Hemoglobin 9.5 L ABG Oxyhemoglobin 92.0 L ABG Sodium 130.1 L ABG Potassium ABG Chloride ABG Glucose 148 H Oxyhemoglobin Sodium Potassium Chloride 96.9 L Carbon Dioxide BUN 57 H Creatinine 6.7 H Glucose 135 H POC Glucose 132 H Lactic Acid Calcium 8.0 L Phosphorus Magnesium Total Bilirubin AST ALT Alkaline Phosphatase Total Protein Albumin Triglycerides Arterial Blood Glucose 148 H Arterial Blood Ionized Calcium 4.1 L Digoxin Crossmatch 01/05/21 01/05/21 01/05/21 05:04 11:48 12:39 WBC RBC 3.03 L Hgb 9.3 L Hct 27.6 L MCV MCHC RDW 16.5 H Plt Count Lymph % (Auto) [place] % (Auto) Lymph # (Auto) [place] # (Auto) Seg Neutrophils % Seg Neuts % (Manual) Lymphocytes % (Manual) Monocytes % (Manual) Seg Neutrophils # Seg Neutrophils # Man Lymphocytes # (Manual) Monocytes # (Manual) PT INR ABG pH POC ABG pCO2 POC ABG pO2 ABG pO2 ABG HCO3 ABG O2 Saturation ABG Base Excess ABG Hemoglobin ABG Oxyhemoglobin ABG Sodium ABG Potassium ABG Chloride ABG Glucose Oxyhemoglobin Sodium Potassium Chloride Carbon Dioxide BUN Creatinine Glucose POC Glucose 147 H 162 H Lactic Acid Calcium Phosphorus Magnesium Total Bilirubin AST ALT Alkaline Phosphatase Total Protein Albumin Triglycerides Arterial Blood Glucose Arterial Blood Ionized Calcium Digoxin Crossmatch 01/05/21 01/05/21 01/06/21 17:50 23:32 04:15 WBC RBC Hgb Hct MCV MCHC RDW Plt Count Lymph % (Auto) [place] % (Auto) Lymph # (Auto) [place] # (Auto) Seg Neutrophils % Seg Neuts % (Manual) Lymphocytes % (Manual) Monocytes % (Manual) Seg Neutrophils # Seg Neutrophils # Man Lymphocytes # (Manual) Monocytes # (Manual) PT INR ABG pH POC ABG pCO2 POC ABG pO2 ABG pO2 191.0 H ABG HCO3 ABG O2 Saturation 99.2 H ABG Base Excess ABG Hemoglobin 9.0 L ABG Oxyhemoglobin ABG Sodium ABG Potassium ABG Chloride ABG Glucose Oxyhemoglobin Sodium Potassium Chloride Carbon Dioxide BUN Creatinine Glucose POC Glucose 155 H 115 H Lactic Acid Calcium Phosphorus Magnesium Total Bilirubin AST ALT Alkaline Phosphatase Total Protein Albumin Triglycerides Arterial Blood Glucose Arterial Blood Ionized Calcium Digoxin Crossmatch 01/06/21 01/06/21 01/06/21 04:45 05:56 07:03 WBC RBC 2.95 L Hgb 9.1 L Hct 26.8 L MCV MCHC RDW 16.8 H Plt Count Lymph % (Auto) [place] % (Auto) Lymph # (Auto) [place] # (Auto) Seg Neutrophils % Seg Neuts % (Manual) Lymphocytes % (Manual) Monocytes % (Manual) Seg Neutrophils # Seg Neutrophils # Man Lymphocytes # (Manual) Monocytes # (Manual) PT INR ABG pH POC ABG pCO2 POC ABG pO2 ABG pO2 ABG HCO3 ABG O2 Saturation ABG Base Excess ABG Hemoglobin ABG Oxyhemoglobin ABG Sodium ABG Potassium ABG Chloride ABG Glucose Oxyhemoglobin Sodium 135 L Potassium Chloride 95.9 L Carbon Dioxide BUN 82 H Creatinine 8.7 H Glucose 127 H POC Glucose 136 H Lactic Acid Calcium 8.3 L Phosphorus Magnesium Total Bilirubin AST ALT Alkaline Phosphatase Total Protein Albumin Triglycerides Arterial Blood Glucose Arterial Blood Ionized Calcium Digoxin Crossmatch 01/06/21 01/06/21 01/06/21 07:10 11:04 13:38 WBC RBC Hgb Hct MCV MCHC RDW Plt Count Lymph % (Auto) [place] % (Auto) Lymph # (Auto) [place] # (Auto) Seg Neutrophils % Seg Neuts % (Manual) Lymphocytes % (Manual) Monocytes % (Manual) Seg Neutrophils # Seg Neutrophils # Man Lymphocytes # (Manual) Monocytes # (Manual) PT INR ABG pH POC ABG pCO2 POC ABG pO2 ABG pO2 ABG HCO3 ABG O2 Saturation ABG Base Excess ABG Hemoglobin ABG Oxyhemoglobin ABG Sodium ABG Potassium ABG Chloride ABG Glucose Oxyhemoglobin Sodium Potassium Chloride Carbon Dioxide BUN Creatinine Glucose POC Glucose 178 H 155 H Lactic Acid Calcium Phosphorus Magnesium Total Bilirubin AST ALT Alkaline Phosphatase Total Protein Albumin Triglycerides Arterial Blood Glucose Arterial Blood Ionized Calcium Digoxin Crossmatch See Detail 01/06/21 01/06/21 01/07/21 17:35 22:21 03:07 WBC RBC Hgb Hct MCV MCHC RDW Plt Count Lymph % (Auto) [place] % (Auto) Lymph # (Auto) [place] # (Auto) Seg Neutrophils % Seg Neuts % (Manual) Lymphocytes % (Manual) Monocytes % (Manual) Seg Neutrophils # Seg Neutrophils # Man Lymphocytes # (Manual) Monocytes # (Manual) PT INR ABG pH POC ABG pCO2 POC ABG pO2 ABG pO2 ABG HCO3 ABG O2 Saturation ABG Base Excess ABG Hemoglobin 11.9 L ABG Oxyhemoglobin ABG Sodium 135.6 L ABG Potassium ABG Chloride ABG Glucose 181 H Oxyhemoglobin Sodium Potassium Chloride Carbon Dioxide BUN Creatinine Glucose POC Glucose 138 H 202 H Lactic Acid Calcium Phosphorus Magnesium Total Bilirubin AST ALT Alkaline Phosphatase Total Protein Albumin Triglycerides Arterial Blood Glucose 181 H Arterial Blood Ionized Calcium 4.3 L Digoxin Crossmatch 01/07/21 01/07/21 01/07/21 04:50 05:21 08:37 WBC 12.4 H RBC Hgb 11.1 L Hct 33.3 L D MCV MCHC RDW 17.0 H Plt Count Lymph % (Auto) 3.2 L [place] % (Auto) 9.4 H Lymph # (Auto) 0.4 L [place] # (Auto) 1.2 H Seg Neutrophils % 86.6 H Seg Neuts % (Manual) Lymphocytes % (Manual) Monocytes % (Manual) Seg Neutrophils # 10.7 H Seg Neutrophils # Man Lymphocytes # (Manual) Monocytes # (Manual) PT INR ABG pH POC ABG pCO2 POC ABG pO2 ABG pO2 ABG HCO3 ABG O2 Saturation ABG Base Excess ABG Hemoglobin ABG Oxyhemoglobin ABG Sodium ABG Potassium ABG Chloride ABG Glucose Oxyhemoglobin Sodium Potassium Chloride Carbon Dioxide BUN 60 H Creatinine 6.3 H Glucose 154 H POC Glucose 177 H Lactic Acid Calcium 8.3 L Phosphorus Magnesium Total Bilirubin AST ALT Alkaline Phosphatase Total Protein Albumin Triglycerides Arterial Blood Glucose Arterial Blood Ionized Calcium Digoxin Crossmatch 01/07/21 01/07/21 01/07/21 11:21 12:19 17:11 WBC RBC Hgb Hct MCV MCHC RDW Plt Count Lymph % (Auto) [place] % (Auto) Lymph # (Auto) [place] # (Auto) Seg Neutrophils % Seg Neuts % (Manual) Lymphocytes % (Manual) Monocytes % (Manual) Seg Neutrophils # Seg Neutrophils # Man Lymphocytes # (Manual) Monocytes # (Manual) PT INR ABG pH POC ABG pCO2 POC ABG pO2 ABG pO2 ABG HCO3 ABG O2 Saturation ABG Base Excess ABG Hemoglobin ABG Oxyhemoglobin ABG Sodium ABG Potassium ABG Chloride ABG Glucose Oxyhemoglobin Sodium Potassium Chloride Carbon Dioxide BUN Creatinine Glucose POC Glucose 144 H 137 H 119 H Lactic Acid Calcium Phosphorus Magnesium Total Bilirubin AST ALT Alkaline Phosphatase Total Protein Albumin Triglycerides Arterial Blood Glucose Arterial Blood Ionized Calcium Digoxin Crossmatch 01/07/21 01/07/21 01/08/21 17:14 23:39 04:34 WBC RBC Hgb Hct MCV MCHC RDW Plt Count Lymph % (Auto) [place] % (Auto) Lymph # (Auto) [place] # (Auto) Seg Neutrophils % Seg Neuts % (Manual) Lymphocytes % (Manual) Monocytes % (Manual) Seg Neutrophils # Seg Neutrophils # Man Lymphocytes # (Manual) Monocytes # (Manual) PT INR ABG pH 7.345 L POC ABG pCO2 POC ABG pO2 ABG pO2 67.4 L ABG HCO3 ABG O2 Saturation 94.3 L ABG Base Excess -3.9 L ABG Hemoglobin 8.9 L ABG Oxyhemoglobin ABG Sodium ABG Potassium ABG Chloride ABG Glucose Oxyhemoglobin 92.3 L Sodium Potassium Chloride Carbon Dioxide 20 L BUN 93 H Creatinine 8.8 H Glucose 120 H POC Glucose 129 H Lactic Acid Calcium Phosphorus Magnesium Total Bilirubin AST ALT Alkaline Phosphatase 133 H Total Protein 5.4 L Albumin 1.9 L Triglycerides Arterial Blood Glucose Arterial Blood Ionized Calcium Digoxin Crossmatch 01/08/21 01/08/21 01/08/21 05:26 11:38 17:19 WBC RBC Hgb Hct MCV MCHC RDW Plt Count Lymph % (Auto) [place] % (Auto) Lymph # (Auto) [place] # (Auto) Seg Neutrophils % Seg Neuts % (Manual) Lymphocytes % (Manual) Monocytes % (Manual) Seg Neutrophils # Seg Neutrophils # Man Lymphocytes # (Manual) Monocytes # (Manual) PT INR ABG pH POC ABG pCO2 POC ABG pO2 ABG pO2 ABG HCO3 ABG O2 Saturation ABG Base Excess ABG Hemoglobin ABG Oxyhemoglobin ABG Sodium ABG Potassium ABG Chloride ABG Glucose Oxyhemoglobin Sodium Potassium Chloride Carbon Dioxide BUN Creatinine Glucose POC Glucose 125 H 146 H 136 H Lactic Acid Calcium Phosphorus Magnesium Total Bilirubin AST ALT Alkaline Phosphatase Total Protein Albumin Triglycerides Arterial Blood Glucose Arterial Blood Ionized Calcium Digoxin Crossmatch 01/08/21 01/09/21 01/09/21 23:52 05:13 05:21 WBC RBC Hgb Hct MCV MCHC RDW Plt Count Lymph % (Auto) [place] % (Auto) Lymph # (Auto) [place] # (Auto) Seg Neutrophils % Seg Neuts % (Manual) Lymphocytes % (Manual) Monocytes % (Manual) Seg Neutrophils # Seg Neutrophils # Man Lymphocytes # (Manual) Monocytes # (Manual) PT INR ABG pH POC ABG pCO2 POC ABG pO2 ABG pO2 ABG HCO3 ABG O2 Saturation ABG Base Excess ABG Hemoglobin ABG Oxyhemoglobin ABG Sodium ABG Potassium ABG Chloride ABG Glucose Oxyhemoglobin Sodium Potassium Chloride Carbon Dioxide 16 L BUN 123 H Creatinine 10.8 H Glucose 145 H POC Glucose 143 H 144 H Lactic Acid Calcium Phosphorus 5.00 H D Magnesium 2.40 H Total Bilirubin AST ALT Alkaline Phosphatase Total Protein Albumin Triglycerides Arterial Blood Glucose Arterial Blood Ionized Calcium Digoxin Crossmatch 01/09/21 01/09/21 01/09/21 12:08 17:20 23:56 WBC RBC Hgb Hct MCV MCHC RDW Plt Count Lymph % (Auto) [place] % (Auto) Lymph # (Auto) [place] # (Auto) Seg Neutrophils % Seg Neuts % (Manual) Lymphocytes % (Manual) Monocytes % (Manual) Seg Neutrophils # Seg Neutrophils # Man Lymphocytes # (Manual) Monocytes # (Manual) PT INR ABG pH POC ABG pCO2 POC ABG pO2 ABG pO2 ABG HCO3 ABG O2 Saturation ABG Base Excess ABG Hemoglobin ABG Oxyhemoglobin ABG Sodium ABG Potassium ABG Chloride ABG Glucose Oxyhemoglobin Sodium Potassium Chloride Carbon Dioxide BUN Creatinine Glucose POC Glucose 153 H 160 H 158 H Lactic Acid Calcium Phosphorus Magnesium Total Bilirubin AST ALT Alkaline Phosphatase Total Protein Albumin Triglycerides Arterial Blood Glucose Arterial Blood Ionized Calcium Digoxin Crossmatch 01/10/21 01/10/21 01/10/21 04:52 05:44 07:41 WBC RBC Hgb Hct MCV MCHC RDW Plt Count Lymph % (Auto) [place] % (Auto) Lymph # (Auto) [place] # (Auto) Seg Neutrophils % Seg Neuts % (Manual) Lymphocytes % (Manual) Monocytes % (Manual) Seg Neutrophils # Seg Neutrophils # Man Lymphocytes # (Manual) Monocytes # (Manual) PT INR ABG pH POC ABG pCO2 POC ABG pO2 ABG pO2 ABG HCO3 ABG O2 Saturation ABG Base Excess ABG Hemoglobin ABG Oxyhemoglobin ABG Sodium ABG Potassium ABG Chloride ABG Glucose Oxyhemoglobin Sodium 135 L Potassium 3.5 L D Chloride 95.0 L Carbon Dioxide 21 L BUN 93 H Creatinine 8.3 H Glucose 127 H POC Glucose 135 H 157 H Lactic Acid Calcium Phosphorus Magnesium Total Bilirubin AST ALT Alkaline Phosphatase Total Protein Albumin Triglycerides Arterial Blood Glucose Arterial Blood Ionized Calcium Digoxin Crossmatch 01/10/21 01/10/21 01/10/21 09:26 12:03 17:44 WBC 18.2 H RBC 3.14 L Hgb 9.7 L Hct 28.2 L MCV MCHC RDW 16.5 H Plt Count Lymph % (Auto) [place] % (Auto) Lymph # (Auto) [place] # (Auto) Seg Neutrophils % Seg Neuts % (Manual) 95.0 H Lymphocytes % (Manual) 3.0 L Monocytes % (Manual) Seg Neutrophils # Seg Neutrophils # Man 17.3 H Lymphocytes # (Manual) 0.5 L Monocytes # (Manual) PT INR ABG pH POC ABG pCO2 POC ABG pO2 ABG pO2 ABG HCO3 ABG O2 Saturation ABG Base Excess ABG Hemoglobin ABG Oxyhemoglobin ABG Sodium ABG Potassium ABG Chloride ABG Glucose Oxyhemoglobin Sodium Potassium Chloride Carbon Dioxide BUN Creatinine Glucose POC Glucose 163 H 171 H Lactic Acid Calcium Phosphorus Magnesium Total Bilirubin AST ALT Alkaline Phosphatase Total Protein Albumin Triglycerides Arterial Blood Glucose Arterial Blood Ionized Calcium Digoxin Crossmatch 01/10/21 01/11/21 01/11/21 23:50 05:18 05:18 WBC RBC Hgb Hct MCV MCHC RDW Plt Count Lymph % (Auto) [place] % (Auto) Lymph # (Auto) [place] # (Auto) Seg Neutrophils % Seg Neuts % (Manual) Lymphocytes % (Manual) Monocytes % (Manual) Seg Neutrophils # Seg Neutrophils # Man Lymphocytes # (Manual) Monocytes # (Manual) PT INR ABG pH POC ABG pCO2 POC ABG pO2 ABG pO2 ABG HCO3 ABG O2 Saturation ABG Base Excess ABG Hemoglobin ABG Oxyhemoglobin ABG Sodium ABG Potassium ABG Chloride ABG Glucose Oxyhemoglobin Sodium 136 L Potassium Chloride 94.6 L Carbon Dioxide 19 L BUN 145 H Creatinine 10.6 H Glucose 152 H POC Glucose 151 H Lactic Acid Calcium Phosphorus 6.00 H D Magnesium Total Bilirubin AST ALT Alkaline Phosphatase Total Protein Albumin Triglycerides Arterial Blood Glucose Arterial Blood Ionized Calcium Digoxin 0.8 L Crossmatch 01/11/21 01/11/2101/11/21 05:18 05:19 11:28 WBC 17.4 H RBC 3.34 L Hgb 10.2 L Hct 29.7 L MCV MCHC RDW 15.9 H Plt Count Lymph % (Auto) [place] % (Auto) Lymph # (Auto) [place] # (Auto) Seg Neutrophils % Seg Neuts % (Manual) Lymphocytes % (Manual) Monocytes % (Manual) Seg Neutrophils # Seg Neutrophils # Man Lymphocytes # (Manual) Monocytes # (Manual) PT INR ABG pH POC ABG pCO2 POC ABG pO2 ABG pO2 ABG HCO3 ABG O2 Saturation ABG Base Excess ABG Hemoglobin ABG Oxyhemoglobin ABG Sodium ABG Potassium ABG Chloride ABG Glucose Oxyhemoglobin Sodium Potassium Chloride Carbon Dioxide BUN Creatinine Glucose POC Glucose 149 H 178 H Lactic Acid Calcium Phosphorus Magnesium Total Bilirubin AST ALT Alkaline Phosphatase Total Protein Albumin Triglycerides Arterial Blood Glucose Arterial Blood Ionized Calcium Digoxin Crossmatch 01/11/21 01/11/21 01/12/21 17:31 23:14 05:18 WBC RBC Hgb Hct MCV MCHC RDW Plt Count Lymph % (Auto) [place] % (Auto) Lymph # (Auto) [place] # (Auto) Seg Neutrophils % Seg Neuts % (Manual) Lymphocytes % (Manual) Monocytes % (Manual) Seg Neutrophils # Seg Neutrophils # Man Lymphocytes # (Manual) Monocytes # (Manual) PT INR ABG pH POC ABG pCO2 POC ABG pO2 ABG pO2 ABG HCO3 ABG O2 Saturation ABG Base Excess ABG Hemoglobin ABG Oxyhemoglobin ABG Sodium ABG Potassium ABG Chloride ABG Glucose Oxyhemoglobin Sodium Potassium Chloride Carbon Dioxide BUN Creatinine Glucose POC Glucose 158 H 145 H 148 H Lactic Acid Calcium Phosphorus Magnesium Total Bilirubin AST ALT Alkaline Phosphatase Total Protein Albumin Triglycerides Arterial Blood Glucose Arterial Blood Ionized Calcium Digoxin Crossmatch 01/12/21 01/12/21 01/12/21 06:50 10:45 13:34 WBC RBC Hgb Hct MCV MCHC RDW Plt Count Lymph % (Auto) [place] % (Auto) Lymph # (Auto) [place] # (Auto) Seg Neutrophils % Seg Neuts % (Manual) Lymphocytes % (Manual) Monocytes % (Manual) Seg Neutrophils # Seg Neutrophils # Man Lymphocytes # (Manual) Monocytes # (Manual) PT INR ABG pH POC ABG pCO2 POC ABG pO2 ABG pO2 ABG HCO3 ABG O2 Saturation ABG Base Excess ABG Hemoglobin ABG Oxyhemoglobin ABG Sodium ABG Potassium ABG Chloride ABG Glucose Oxyhemoglobin Sodium Potassium 2.9 L* D Chloride 94.8 L Carbon Dioxide BUN 102 H Creatinine 8.3 H Glucose 139 H POC Glucose 151 H 134 H Lactic Acid Calcium 8.1 L Phosphorus 5.00 H Magnesium Total Bilirubin AST ALT Alkaline Phosphatase Total Protein Albumin Triglycerides Arterial Blood Glucose Arterial Blood Ionized Calcium Digoxin Crossmatch 01/12/21 01/12/21 01/13/21 16:59 23:06 03:45 WBC RBC Hgb Hct MCV MCHC RDW Plt Count Lymph % (Auto) [place] % (Auto) Lymph # (Auto) [place] # (Auto) Seg Neutrophils % Seg Neuts % (Manual) Lymphocytes % (Manual) Monocytes % (Manual) Seg Neutrophils # Seg Neutrophils # Man Lymphocytes # (Manual) Monocytes # (Manual) PT INR ABG pH POC ABG pCO2 POC ABG pO2 ABG pO2 ABG HCO3 ABG O2 Saturation ABG Base Excess ABG Hemoglobin ABG Oxyhemoglobin ABG Sodium ABG Potassium ABG Chloride ABG Glucose Oxyhemoglobin Sodium 136 L Potassium 3.4 L Chloride 92.6 L Carbon Dioxide BUN 134 H Creatinine 10.4 H Glucose 126 H POC Glucose 108 H 135 H Lactic Acid Calcium 8.3 L Phosphorus 5.60 H Magnesium 1.50 L Total Bilirubin AST ALT Alkaline Phosphatase Total Protein Albumin Triglycerides Arterial Blood Glucose Arterial Blood Ionized Calcium Digoxin Crossmatch 01/13/21 01/13/21 01/13/21 03:45 05:55 11:59 WBC 17.6 H RBC 3.33 L Hgb 10.2 L Hct 29.5 L MCV MCHC 35 H RDW 15.5 H Plt Count Lymph % (Auto) 4.4 L [place] % (Auto) 10.3 H Lymph # (Auto) 0.8 L [place] # (Auto) 1.8 H Seg Neutrophils % 84.2 H Seg Neuts % (Manual) Lymphocytes % (Manual) Monocytes % (Manual) Seg Neutrophils # 14.8 H Seg Neutrophils # Man Lymphocytes # (Manual) Monocytes # (Manual) PT INR ABG pH POC ABG pCO2 POC ABG pO2 ABG pO2 ABG HCO3 ABG O2 Saturation ABG Base Excess ABG Hemoglobin ABG Oxyhemoglobin ABG Sodium ABG Potassium ABG Chloride ABG Glucose Oxyhemoglobin Sodium Potassium Chloride Carbon Dioxide BUN Creatinine Glucose POC Glucose 134 H 141 H Lactic Acid Calcium Phosphorus Magnesium Total Bilirubin AST ALT Alkaline Phosphatase Total Protein Albumin Triglycerides Arterial Blood Glucose Arterial Blood Ionized Calcium Digoxin Crossmatch 01/13/21 01/14/21 01/14/21 23:09 05:39 05:57 WBC RBC Hgb Hct MCV MCHC RDW Plt Count Lymph % (Auto) [place] % (Auto) Lymph # (Auto) [place] # (Auto) Seg Neutrophils % Seg Neuts % (Manual) Lymphocytes % (Manual) Monocytes % (Manual) Seg Neutrophils # Seg Neutrophils # Man Lymphocytes # (Manual) Monocytes # (Manual) PT INR ABG pH POC ABG pCO2 POC ABG pO2 ABG pO2 ABG HCO3 ABG O2 Saturation ABG Base Excess ABG Hemoglobin ABG Oxyhemoglobin ABG Sodium ABG Potassium ABG Chloride ABG Glucose Oxyhemoglobin Sodium Potassium Chloride 97.6 L Carbon Dioxide BUN 81 H Creatinine 7.6 H Glucose 193 H POC Glucose 106 H 190 H Lactic Acid Calcium 8.2 L Phosphorus 4.60 H Magnesium Total Bilirubin AST ALT Alkaline Phosphatase Total Protein Albumin Triglycerides Arterial Blood Glucose Arterial Blood Ionized Calcium Digoxin Crossmatch 01/14/21 01/14/21 01/14/21 10:00 16:56 16:59 WBC 17.0 H RBC 3.10 L Hgb 9.6 L Hct 27.4 L MCV MCHC 35 H RDW 15.6 H Plt Count Lymph % (Auto) [place] % (Auto) Lymph # (Auto) [place] # (Auto) Seg Neutrophils % Seg Neuts % (Manual) Lymphocytes % (Manual) Monocytes % (Manual) Seg Neutrophils # Seg Neutrophils # Man Lymphocytes # (Manual) Monocytes # (Manual) PT INR ABG pH POC ABG pCO2 POC ABG pO2 ABG pO2 ABG HCO3 ABG O2 Saturation ABG Base Excess ABG Hemoglobin ABG Oxyhemoglobin ABG Sodium ABG Potassium ABG Chloride ABG Glucose Oxyhemoglobin Sodium Potassium Chloride Carbon Dioxide BUN Creatinine Glucose POC Glucose 37 L 34 L Lactic Acid Calcium Phosphorus Magnesium Total Bilirubin AST ALT Alkaline Phosphatase Total Protein Albumin Triglycerides Arterial Blood Glucose Arterial Blood Ionized Calcium Digoxin Crossmatch 01/14/21 01/14/21 01/14/21 17:02 18:34 23:17 WBC RBC Hgb Hct MCV MCHC RDW Plt Count Lymph % (Auto) [place] % (Auto) Lymph # (Auto) [place] # (Auto) Seg Neutrophils % Seg Neuts % (Manual) Lymphocytes % (Manual) Monocytes % (Manual) Seg Neutrophils # Seg Neutrophils # Man Lymphocytes # (Manual) Monocytes # (Manual) PT INR ABG pH POC ABG pCO2 POC ABG pO2 ABG pO2 ABG HCO3 ABG O2 Saturation ABG Base Excess ABG Hemoglobin ABG Oxyhemoglobin ABG Sodium ABG Potassium ABG Chloride ABG Glucose Oxyhemoglobin Sodium Potassium Chloride Carbon Dioxide BUN Creatinine Glucose POC Glucose 35 L 143 H 53 L Lactic Acid Calcium Phosphorus Magnesium Total Bilirubin AST ALT Alkaline Phosphatase Total Protein Albumin Triglycerides Arterial Blood Glucose Arterial Blood Ionized Calcium Digoxin Crossmatch 01/15/21 01/15/21 01/15/21 00:34 04:00 04:00 WBC 15.9 H RBC 3.02 L Hgb 9.3 L Hct 27.3 L MCV MCHC RDW 15.6 H Plt Count Lymph % (Auto) [place] % (Auto) Lymph # (Auto) [place] # (Auto) Seg Neutrophils % Seg Neuts % (Manual) Lymphocytes % (Manual) Monocytes % (Manual) Seg Neutrophils # Seg Neutrophils # Man Lymphocytes # (Manual) Monocytes # (Manual) PT INR ABG pH POC ABG pCO2 POC ABG pO2 ABG pO2 ABG HCO3 ABG O2 Saturation ABG Base Excess ABG Hemoglobin ABG Oxyhemoglobin ABG Sodium ABG Potassium ABG Chloride ABG Glucose Oxyhemoglobin Sodium 136 L Potassium Chloride 94.3 L Carbon Dioxide BUN 117 H Creatinine 9.9 H Glucose 217 H POC Glucose 181 H Lactic Acid Calcium 8.3 L Phosphorus Magnesium Total Bilirubin AST ALT Alkaline Phosphatase Total Protein Albumin Triglycerides Arterial Blood Glucose Arterial Blood Ionized Calcium Digoxin Crossmatch 01/15/21 01/15/21 01/15/21 05:29 11:51 23:13 WBC RBC Hgb Hct MCV MCHC RDW Plt Count Lymph % (Auto) [place] % (Auto) Lymph # (Auto) [place] # (Auto) Seg Neutrophils % Seg Neuts % (Manual) Lymphocytes % (Manual) Monocytes % (Manual) Seg Neutrophils # Seg Neutrophils # Man Lymphocytes # (Manual) Monocytes # (Manual) PT INR ABG pH POC ABG pCO2 POC ABG pO2 ABG pO2 ABG HCO3 ABG O2 Saturation ABG Base Excess ABG Hemoglobin ABG Oxyhemoglobin ABG Sodium ABG Potassium ABG Chloride ABG Glucose Oxyhemoglobin Sodium Potassium Chloride Carbon Dioxide BUN Creatinine Glucose POC Glucose 221 H 62 L 154 H Lactic Acid Calcium Phosphorus Magnesium Total Bilirubin AST ALT Alkaline Phosphatase Total Protein Albumin Triglycerides Arterial Blood Glucose Arterial Blood Ionized Calcium Digoxin Crossmatch 01/16/21 01/16/21 01/16/21 05:04 06:44 06:44 WBC 14.8 H RBC 2.76 L Hgb 8.2 L Hct 24.8 L MCV MCHC RDW 15.6 H Plt Count Lymph % (Auto) [place] % (Auto) Lymph # (Auto) [place] # (Auto) Seg Neutrophils % Seg Neuts % (Manual) Lymphocytes % (Manual) Monocytes % (Manual) Seg Neutrophils # Seg Neutrophils # Man Lymphocytes # (Manual) Monocytes # (Manual) PT INR ABG pH POC ABG pCO2 POC ABG pO2 ABG pO2 ABG HCO3 ABG O2 Saturation ABG Base Excess ABG Hemoglobin ABG Oxyhemoglobin ABG Sodium ABG Potassium ABG Chloride ABG Glucose Oxyhemoglobin Sodium 133 L Potassium Chloride 92.3 L Carbon Dioxide 20 L BUN 160 H Creatinine 12.1 H Glucose 177 H POC Glucose 168 H Lactic Acid Calcium 8.1 L Phosphorus 5.50 H Magnesium 2.50 H Total Bilirubin AST ALT Alkaline Phosphatase Total Protein Albumin Triglycerides Arterial Blood Glucose Arterial Blood Ionized Calcium Digoxin Crossmatch 01/16/21 01/17/21 01/17/21 23:20 05:14 05:14 WBC 12.7 H RBC 2.75 L Hgb 8.5 L Hct 24.6 L MCV MCHC 35 H RDW 15.4 H Plt Count Lymph % (Auto) [place] % (Auto) Lymph # (Auto) [place] # (Auto) Seg Neutrophils % Seg Neuts % (Manual) Lymphocytes % (Manual) Monocytes % (Manual) Seg Neutrophils # Seg Neutrophils # Man Lymphocytes # (Manual) Monocytes # (Manual) PT INR ABG pH POC ABG pCO2 POC ABG pO2 ABG pO2 ABG HCO3 ABG O2 Saturation ABG Base Excess ABG Hemoglobin ABG Oxyhemoglobin ABG Sodium ABG Potassium ABG Chloride ABG Glucose Oxyhemoglobin Sodium Potassium Chloride 97.9 L Carbon Dioxide BUN 84 H Creatinine 7.8 H Glucose 176 H POC Glucose 153 H Lactic Acid Calcium 8.0 L Phosphorus Magnesium Total Bilirubin AST ALT Alkaline Phosphatase Total Protein Albumin Triglycerides Arterial Blood Glucose Arterial Blood Ionized Calcium Digoxin Crossmatch 01/17/21 01/17/21 01/18/21 05:33 11:58 00:07 WBC RBC Hgb Hct MCV MCHC RDW Plt Count Lymph % (Auto) [place] % (Auto) Lymph # (Auto) [place] # (Auto) Seg Neutrophils % Seg Neuts % (Manual) Lymphocytes % (Manual) Monocytes % (Manual) Seg Neutrophils # Seg Neutrophils # Man Lymphocytes # (Manual) Monocytes # (Manual) PT INR ABG pH POC ABG pCO2 POC ABG pO2 ABG pO2 ABG HCO3 ABG O2 Saturation ABG Base Excess ABG Hemoglobin ABG Oxyhemoglobin ABG Sodium ABG Potassium ABG Chloride ABG Glucose Oxyhemoglobin Sodium Potassium Chloride Carbon Dioxide BUN Creatinine Glucose POC Glucose 162 H 64 L 146 H Lactic Acid Calcium Phosphorus Magnesium Total Bilirubin AST ALT Alkaline Phosphatase Total Protein Albumin Triglycerides Arterial Blood Glucose Arterial Blood Ionized Calcium Digoxin Crossmatch 01/18/21 01/18/21 01/18/21 04:19 04:19 06:15 WBC 15.6 H RBC 3.00 L Hgb 9.2 L Hct 26.8 L MCV MCHC 35 H RDW 15.6 H Plt Count Lymph % (Auto) [place] % (Auto) Lymph # (Auto) [place] # (Auto) Seg Neutrophils % Seg Neuts % (Manual) Lymphocytes % (Manual) Monocytes % (Manual) Seg Neutrophils # Seg Neutrophils # Man Lymphocytes # (Manual) Monocytes # (Manual) PT INR ABG pH POC ABG pCO2 POC ABG pO2 ABG pO2 ABG HCO3 ABG O2 Saturation ABG Base Excess ABG Hemoglobin ABG Oxyhemoglobin ABG Sodium ABG Potassium ABG Chloride ABG Glucose Oxyhemoglobin Sodium Potassium Chloride 96.2 L Carbon Dioxide BUN 117 H Creatinine 10.0 H Glucose 165 H POC Glucose 189 H Lactic Acid Calcium Phosphorus 4.70 H D Magnesium Total Bilirubin AST ALT Alkaline Phosphatase Total Protein Albumin Triglycerides Arterial Blood Glucose Arterial Blood Ionized Calcium Digoxin Crossmatch 01/18/21 01/18/21 11:53 13:44 WBC RBC Hgb Hct MCV MCHC RDW Plt Count Lymph % (Auto) [place] % (Auto) Lymph # (Auto) [place] # (Auto) Seg Neutrophils % Seg Neuts % (Manual) Lymphocytes % (Manual) Monocytes % (Manual) Seg Neutrophils # Seg Neutrophils # Man Lymphocytes # (Manual) Monocytes # (Manual) PT INR ABG pH POC ABG pCO2 POC ABG pO2 ABG pO2 ABG HCO3 ABG O2 Saturation ABG Base Excess ABG Hemoglobin ABG Oxyhemoglobin ABG Sodium ABG Potassium ABG Chloride ABG Glucose Oxyhemoglobin Sodium Potassium Chloride Carbon Dioxide BUN Creatinine Glucose POC Glucose 69 L 50 L Lactic Acid Calcium Phosphorus Magnesium Total Bilirubin AST ALT Alkaline Phosphatase Total Protein Albumin Triglycerides Arterial Blood Glucose Arterial Blood Ionized Calcium Digoxin Crossmatch Allied health notes reviewed: nursing
[2021-01-18] MEDS ORDERED: D5W/0.45% NACL 1,000 ML IV SCH (15:00)
[2021-01-18] MEDS ORDERED: TOTAL PARENTERAL NUTRITION 2,016 ML IV SCH (20:00)
[2021-01-18] MEDS ORDERED: FAT EMULSIONS 20% 250 ML IV SCH (20:00)
[2021-01-18] MEDS: EPOETIN ALFA-EPBX 10,000 UNIT/1 ML VIAL SUB-Q PRN (23:02)
[2021-01-19] MEDS: METOPROLOL TARTRATE 5 MG/5 ML INJ IV SCH ×6 (01:02→22:08)
[2021-01-19] MEDS: hydrALAZINE 20 MG/1 ML INJ IV SCH ×6 (01:12→21:16)
[2021-01-19] MEDS: PIPERACIL-TAZO 2.25 GM/50 ML 2.25 GM/50 ML BAG IV SCH ×3 (04:35→20:52)
[2021-01-19] MEDS: INSULIN LISPRO 100 UNIT/ML SUB-Q SCH ×3 (05:09→18:14)
[2021-01-19] MEDS: OCTREOTIDE 500 MCG in SODIUM CHLORIDE 0.9% 100 ML IV SCH (05:11)
--- NOTE | 2021-01-19 09:22 | Progress Note ---
Assessment and Plan Assessment: * ESRD previouasly on peritoneal dialysis; now on back up HD (on peritoneal dialysis for 2 years) * Small bowel obstruction --s/p ex-lap with jejuno-ileal anastamosis --s/p ex lap with extensive lysis of adhesions and two small bowel resections with primary anastamosis for SBO with necrotic segment small bowel. --s/p ex lap, resection of perforated anastamosis, washout and abthera wound vac placement. --s/p ex lap with right hemicolectomy. * Acute respiratory failure * Septic shock - resolved * Bacteremia - resolved * Hyperkalemia * Anemia of ESRD * Atrial fibrilation, new onset * Post op ileus Plan: * Continue HD MWF via left IJ permcath (12/27) * 4K bath with dialysis * UF as tolerated * Epogen 10k units w/ dialysis * Rate control per cardiology * Abx per primary team/ID * Nutrition per primary team * Maintatin MAP >65 * Surgery notes appreciated * He will also require outpatient hemodialysis chair prior to discharge * His BUN was elevated at 117 yesterday. Most likely secondary to catabolic state. Dialysis time was increased to 4 hours. Today's chemistries are pending. Shall arrange for additional dialysis treatment today Subjective Date of service: 01/19/21 Principal diagnosis: Ac hypoxemic resp failure; Severe Sepsis; Peritonitis; Acute SBO; ESRD; CHF Interval history: Patient is clinically about the same. Remains on octreotide drip as well as TPN. NG tube in place. Objective - Vital Signs Vital signs: Vital Signs - 12hr 01/18/21 01/18/21 01/18/21 22:01 23:01 23:31 Temperature Pulse Rate 63 77 66 Pulse Rate [ From Monitor] Respiratory 13 16 22 Rate Blood Pressure 168/74 133/70 144/72 O2 Sat by Pulse 97 98 97 Oximetry 01/19/21 01/19/21 01/19/21 00:00 00:01 01:01 Temperature 97.6 F Pulse Rate 58 L 54 L 58 L Pulse Rate [ 54 L From Monitor] Respiratory 18 18 15 Rate Blood Pressure 160/73 160/65 O2 Sat by Pulse 97 97 99 Oximetry 01/19/21 01/19/21 01/19/21 01:02 01:12 02:01 Temperature Pulse Rate 58 L 62 62 Pulse Rate [ From Monitor] Respiratory 19 Rate Blood Pressure 160/65 160/65 165/64 O2 Sat by Pulse 96 Oximetry 01/19/21 01/19/21 01/19/21 03:00 04:00 04:01 Temperature 98.3 F Pulse Rate 72 62 Pulse Rate [ 62 From Monitor] Respiratory 22 16 15 Rate Blood Pressure 154/69 176/71 O2 Sat by Pulse 97 97 Oximetry 01/19/21 01/19/21 01/19/21 04:10 05:00 05:08 Temperature Pulse Rate 62 62 59 L Pulse Rate [ From Monitor] Respiratory 15 Rate Blood Pressure 158/74 158/74 O2 Sat by Pulse 99 Oximetry 01/19/21 01/19/21 06:01 08:00 Temperature 98.6 F Pulse Rate 66 Pulse Rate [ From Monitor] Respiratory 24 Rate Blood Pressure 158/74 O2 Sat by Pulse 98 Oximetry - General Appearance General appearance: well-developed, well-nourished, appears stated age EENT: PERRL, mucous membranes moist Neck: no JVD, no thyromegaly, no carotid bruit, supple, other (Left IJ PermCath in place) Respiratory: Present: Clear to Ascultation Cardiology: regular, normal heart rate, S1S2, no murmurs Gastrointestinal: other (Midline incision with wound VAC noted. Drain in right flank area. No edema) - Lab 01/18/21 04:19 01/18/21 04:19 Most recent lab results ABG pH 7.345 pH Units (7.350-7.450) L 01/07/21 17:14 ABG pCO2 40.3 mm Hg 01/07/21 17:14 ABG pO2 67.4 mm Hg (80.0-90.0) L 01/07/21 17:14 ABG HCO3 21.5 mmol/L (20.0-26.0) 01/07/21 17:14 ABG O2 Saturation 94.3 % (95.0-99.0) L 01/07/21 17:14 Calcium 8.5 mg/dL (8.4-10.2) 01/18/21 04:19 Phosphorus 4.70 mg/dL (2.5-4.5) H D 01/18/21 04:19 Magnesium 2.00 mg/dL (1.7-2.3) 01/18/21 04:19 Medications & Allergies - Medications Allergies/Adverse Reactions: Allergies No Known Allergies Allergy (Verified 06/09/20 15:27) Home Medications: Home Medications Medication Instructions Recorded Confirmed Last Taken Type Albuterol Mdi (or & Nicu Only) 2 puff IH QID PRN #1 inhalation 04/01/17 11/01/20 10/31/20 09:00 Rx [ProAir HFA Inhaler] Calcium Acetate 667 mg PO DAILY 04/20/20 11/01/20 10/31/20 09:00 History Centrum Men's Tablet 1 tab PO DAILY 04/20/20 11/01/20 10/31/20 09:00 History Cinacalcet 30 mg PO DAILY 04/20/20 11/01/20 10/31/20 09:00 History Dialyvite with Zinc Tablet 1 tab PO DAILY 04/20/20 11/01/20 10/31/20 09:00 History Magnesium 250 mg PO BID 04/20/20 11/01/20 10/31/20 17:00 History Triamcinolone 0.1% 1 1000units TRANSDERMA DAILY 04/20/20 11/01/20 10/31/20 09:00 History Vit B12/Folic Acid/B6/Aa No.15 1,000 mg PO DAILY 04/20/20 11/01/20 10/31/20 09:00 History amLODIPine 10 mg PO DAILY 06/09/20 11/01/20 10/31/20 09:00 History AtorvaSTATin 40 mg PO HS 11/01/20 11/01/20 10/31/20 21:00 History Benadryl 25 mg PO HS 11/01/20 11/01/20 10/31/20 21:00 History Diclofenac 1 TRANSDERMA QID 11/01/20 10/31/20 19:00 History Fluticasone Propionate 1 spray INTRANASAL DAILY 11/01/20 11/01/20 10/31/20 09:00 History Vitamin D3 2,000 units 11/01/20 10/31/20 09:00 History carvediloL 12.5 mg PO DAILY 11/01/20 11/01/20 10/31/20 09:00 History hydrALAZINE 100 mg PO TID 11/01/20 11/01/20 10/31/20 19:00 History Active Medications: Generic Name Dose Route Start Last Admin Trade Name Freq PRN Reason Stop Dose Admin Acetaminophen 650 mg 12/31/20 15:30 12/31/20 15:13 Acetaminophen 650 Mg Rect Supp HI 650 mg Q6H PRN Administration Non Cardiac Pain or Temp>100.5 Clonidine HCl 0.2 mg 01/11/21 10:00 01/18/21 10:11 Clonidine Tts 0.2 Mg/24 Hr Patch TD 0.2 mg We THOMAS Administration Dextrose 50 ml 01/14/21 17:59 01/18/21 15:10 Dextrose 50% In Water (25gm) 50 Ml Syringe IV 20 ml Q30MIN PRN Administration Hypoglycemia Protocol Digoxin 0.125 mg 01/09/21 12:00 01/17/21 12:57 Digoxin 0.5 Mg/2 Ml Inj IV 0.125 mg Q48H THOMAS Administration Famotidine 10 mg 12/24/20 13:00 01/18/21 21:08 Famotidine 20 Mg/2 Ml Inj IV 10 mg BID THOMAS Administration Haloperidol Lactate 5 mg 12/29/20 14:16 01/16/21 00:14 Haloperidol Lactate 5 Mg/1 Ml Inj IV 5 mg Q12H PRN Administration Agitation Heparin Sodium (Porcine) 5,000 unit 12/24/20 10:00 01/18/21 21:12 Heparin 5,000 Unit/1 Ml Vial SUB-Q 5,000 unit Q12HR THOMAS Administration Hydralazine HCl 10 mg 01/10/21 14:00 01/19/21 05:08 Hydralazine 20 Mg/1 Ml Inj IV 10 mg Q4HR THOMAS Administration Hydromorphone HCl 0.25 mg 01/09/21 10:53 01/16/21 21:48 Hydromorphone 1 Mg/1 Ml Inj IV 0.25 mg Q6H PRN Administration Pain , Severe (7-10) Hydrophilic Ointment 1 applic 12/31/20 06:39 01/11/21 21:28 Lip Therapy Vaseline TP 1 applic Q2HR PRN Administration Dry Lips Sodium Chloride 100 mls @ 999 mls/hr 01/12/21 09:20 Nacl 0.9% IV [place] PRN Hypotension Octreotide Acetate 500 mcg/ 101 mls @ 5.05 mls/hr 01/13/21 11:00 01/19/21 05:11 Sodium Chloride IV 25 mcg/hr TITR THOMAS 5.05 mls/hr Administration Protocol 25 MCG/HR Piperacillin Sod/Tazobactam Sod 2.25 gm in 50 mls @ 100 mls/hr 01/13/21 12:00 01/19/21 04:35 Zosyn/Ns 2.25 Gm/50ml IV 100 mls/hr Q8H [facility] Administration Protocol Amino Acids/Electrolytes/Dextrose 2,016 mls @ 84 mls/hr 01/18/21 20:00 01/18/21 21:50 Tpn Adult IV 01/19/21 19:59 84 mls/hr DAILY@2000 [facility] Administration Protocol As Directed Dextrose/Sodium Chloride 1,000 mls @ 45 mls/hr 01/18/21 15:00 01/18/21 14:43 D5/0.45ns IV 45 mls/hr DIRECT THOMAS Administration Insulin Glargine 5 units 01/18/21 22:00 01/18/21 21:11 Insulin Glargine 100 Units/Ml SUB-Q 5 units QHS [facility] Administration Insulin Human Lispro 0 unit 01/03/21 12:00 01/19/21 05:09 Insulin Lispro 100 Unit/Ml SUB-Q Not Given Q6HR [facility] Protocol Metoprolol Tartrate 5 mg 12/30/20 12:00 01/19/21 01:02 Metoprolol Tartrate 5 Mg/5 Ml Inj IV Not Given Q4HR [facility] Multi-Ingred Cream/Lotion/Oil/Oint 1 applic 12/31/20 06:39 Mineral Oil/Petrolatum, White Ophth Oint 3.5 Gm OU Q4HR PRN Dry Eye(s) Scopolamine 1 each 01/15/21 11:00 01/18/21 09:08 Scopolamine Transdermal Patch 72 Hr TD 1 each Q3D THOMAS Administration Sodium Chloride 10 ml 12/22/20 22:00 01/18/21 21:10 Sodium Chloride 0.9% 10 Ml Flush Syringe IV 10 ml BID THOMAS Administration Sodium Chloride 10 ml 12/22/20 19:42 01/09/21 17:27 Sodium Chloride 0.9% 10 Ml Flush Syringe IV 10 ml PRN PRN Administration LINE FLUSH
[2021-01-19] MEDS ORDERED: SODIUM CHLORIDE 0.9% 100 ML IV PRN (09:30)
[2021-01-19 10:11] LABS: Hematocrit 25.6 % (35.5-45.6); Hemoglobin 8.7 gm/dl (11.8-15.2); Mean Corpuscular HGB Conc 34 % (32-34); Mean Corpuscular Volume 89 fl (84-94); Platelet Count 273 K/mm3 (140-440); Red Blood Count 2.89 M/mm3 (3.65-5.03); Red Cell Distribution Width 15.5 % (13.2-15.2)
[2021-01-19 10:33] LABS: Calcium 8.3 mg/dL (8.4-10.2)
--- NOTE | 2021-01-19 10:46 | Progress Note ---
Assessment and Plan Paroxysmal atrial fibrillation currently, he is sinus rhythm on telemetry Hx of nonischemic cardiomyopathy, resolving LVEF 50-55% by echo this presentation Small bowl obstruction status post emergency exploratory laparotomy for anastomotic leak status post exploratory laparotomy s/p ex lap, resection of perforated anastamosis, washout and abthera wound vac placement ESRD now on HD Anemia s/p PRBCs Patient remains on NPO status. Will continue intravenous digoxin, and intravenous metoprolol for paroxysmal atrial fibrillation. Patient is not a candidate for anticoagulation at this time due to his postoperative status and the presence of severe anemia. Otherwise, conservative cardiac management. Subjective Date of service: 01/19/21 Principal diagnosis: Ac hypoxemic resp failure; Severe Sepsis; Peritonitis; Acute SBO; ESRD; CHF Interval history: Patient is resting in bed and appears comfortable. Sinus rhythm with occasional PVCs on telemetry. Objective Vital Signs Temp Pulse Pulse Resp Resp BP Pulse Ox 01/19/21 10:30 61 150/72 01/19/21 10:25 98.3 F 64 21 152/72 01/19/21 10:00 67 14 142/71 98 01/19/21 09:00 68 20 155/71 97 01/19/21 08:01 73 13 177/77 99 01/19/21 08:00 98.6 F 01/19/21 07:01 60 15 152/72 100 01/19/21 06:01 66 24 158/74 98 01/19/21 05:08 59 L 158/74 01/19/21 05:00 62 15 158/74 99 01/19/21 04:10 62 01/19/21 04:01 62 15 176/71 97 01/19/21 04:00 98.3 F 62 16 97 01/19/21 03:00 72 22 154/69 01/19/21 02:01 62 19 165/64 96 01/19/21 01:12 62 160/65 01/19/21 01:02 58 L 160/65 01/19/21 01:01 58 L 15 160/65 99 01/19/21 00:01 54 L 18 160/73 97 01/19/21 00:00 97.6 F 58 L 54 L 18 97 01/18/21 23:31 66 22 144/72 97 01/18/21 23:01 77 16 133/70 98 01/18/21 22:01 63 13 168/74 97 01/18/21 21:07 65 148/63 01/18/21 21:06 65 148/63 01/18/21 21:01 64 19 148/63 01/18/21 20:25 65 01/18/21 20:01 66 21 130/76 98 01/18/21 19:56 16 01/18/21 19:48 16 98 01/18/21 19:43 98.8 F 01/18/21 19:00 62 17 138/65 98 01/18/21 18:47 58 L 01/18/21 18:40 98.8 F 63 17 138/61 01/18/21 18:30 64 150/63 01/18/21 18:15 70 132/77 01/18/21 18:00 71 23 132/77 97 01/18/21 17:45 73 135/75 01/18/21 17:30 73 128/70 01/18/21 17:15 80 155/74 01/18/21 17:00 75 19 155/74 98 01/18/21 16:45 68 149/89 01/18/21 16:30 72 161/82 01/18/21 16:15 69 164/81 01/18/21 16:01 75 16 164/81 98 01/18/21 16:00 97.7 F 70 70 16 171/82 97 01/18/21 15:45 69 168/75 01/18/21 15:30 69 172/81 01/18/21 15:15 63 166/67 01/18/21 15:01 65 12 176/69 98 01/18/21 15:00 70 176/69 01/18/21 14:45 69 171/69 01/18/21 14:30 98.2 F 68 14 175/82 01/18/21 14:00 68 13 165/81 96 01/18/21 13:00 67 18 166/74 01/18/21 12:01 66 16 157/63 97 01/18/21 12:00 70 69 16 97 01/18/21 11:59 98.2 F 01/18/21 11:01 66 19 172/70 Pulse Ox 01/19/21 10:30 01/19/21 10:25 01/19/21 10:00 01/19/21 09:00 01/19/21 08:01 01/19/21 08:00 01/19/21 07:01 01/19/21 06:01 01/19/21 05:08 01/19/21 05:00 01/19/21 04:10 01/19/21 04:01 01/19/21 04:00 01/19/21 03:00 01/19/21 02:01 01/19/21 01:12 01/19/21 01:02 01/19/21 01:01 01/19/21 00:01 01/19/21 00:00 01/18/21 23:31 01/18/21 23:01 01/18/21 22:01 01/18/21 21:07 01/18/21 21:06 01/18/21 21:01 01/18/21 20:25 01/18/21 20:01 01/18/21 19:56 01/18/21 19:48 01/18/21 19:43 01/18/21 19:00 01/18/21 18:47 01/18/21 18:40 98 01/18/21 18:30 01/18/21 18:15 01/18/21 18:00 01/18/21 17:45 01/18/21 17:30 01/18/21 17:15 01/18/21 17:00 01/18/21 16:45 01/18/21 16:30 01/18/21 16:15 01/18/21 16:01 01/18/21 16:00 01/18/21 15:45 01/18/21 15:30 01/18/21 15:15 01/18/21 15:01 01/18/21 15:00 01/18/21 14:45 01/18/21 14:30 98 01/18/21 14:00 01/18/21 13:00 01/18/21 12:01 01/18/21 12:00 01/18/21 11:59 01/18/21 11:01 - Physical Examination General: No Apparent Distress HEENT: Positive: PERRL Neck: Positive: neck supple Cardiac: Positive: Reg Rate and Rhythm Lungs: Positive: Decreased Breath Sounds Abdomen: Positive: Other (post op) - Labs and Meds CBC 01/19/21 Range/Units 08:56 WBC 12.7 H (4.5-11.0) K/mm3 RBC 2.89 L (3.65-5.03) M/mm3 Hgb 8.7 L (11.8-15.2) gm/dl Hct 25.6 L (35.5-45.6) % Plt Count 273 (140-440) K/mm3 Comprehensive Metabolic Panel 01/19/21 Range/Units 08:56 Sodium 142 (137-145) mmol/L Potassium 4.2 (3.6-5.0) mmol/L Chloride 101.9 (98-107) mmol/L Carbon Dioxide 26 (22-30) mmol/L BUN 66 H (9-20) mg/dL Creatinine 7.7 H (0.8-1.3) mg/dL Glucose 119 H (75-100) mg/dL Calcium 8.3 L (8.4-10.2) mg/dL - Allied health notes Allied health notes reviewed: nursing
--- NOTE | 2021-01-19 11:21 | Progress Note ---
Assessment and Plan Cultures: 12/22/2020 blood culture: Streptococcus bovis, Prevotella 12/22/2020 PD fluid culture: No growth 12/24/2020 tracheal aspirate culture: No growth 12/24/2020 blood culture: No growth 12/31/2020 sputum culture: No growth A/P: 60-year-old male with ESRD on PD, Crohn's disease, CHF, gastroesophageal reflux disease was admitted to the hospital with complaints of abdominal pain and fever: #Severe sepsis with shock: improved. Secondary to small bowel obstruction/necrotic bowel with associated peritonitis. Status post exploratory laparotomy on 12/23/2020 with extensive lysis, primary anastomosis, found to have necrotic segment of small bowel. #Small bowel obstruction/necrotic bowel: with concern for PD associated peritonitis: Nephrology and general surgery following. Status post exploratory laparotomy on 12/23/2020 with extensive lysis, primary anastomosis, found to have necrotic segment of small bowel. PD catheter remains in place. S/p ex lap, resection of perforated anastamosis, washout and abthera wound vac placement on 01/01. Repeat CT abdomen showed no new abscesses, noted small free fluid. S/p Exploratory laparotomy, Right hemicolectomy, Peritoneal lavage, Partial omentectomy, ABThera wound VAC placement on 01/03/2021. Complicated intra- abdominal situation per d/w Dr. Sanchez, plan to continue IV abx for now, has limited surgical options at this time. #Streptococcus bovis bacteremia and Prevotella bacteremia: secondary to above. TTE without obvious vegetations. Repeat blood cultures negative. #ESRD: Renally dose antibiotics. Used to be on PD. On HD. #Acute respiratory failure: off the vent. #Anemia: Severe. Recs: -continue IV Zosyn, plan to stop at 3 weeks from last surgery end date: 01/24/2021 Yesika Denny MD, FACP [facility] O: [phone] F: [phone] Subjective Date of service: 01/19/21 Principal diagnosis: Ac hypoxemic resp failure; Severe Sepsis; Peritonitis; Acute SBO; ESRD; CHF Interval history: Afebrile. Getting HD at bedside. Remains on NG tube suction. Denies any comp laints. Objective - Exam Narrative Exam: Physical Exam: Constitutional: awake alert, NG tube + Head, Ears, Nose: Normocephalic, atraumatic. External ears, nose normal Eyes: Conjunctivae/corneas clear. No icterus. No ptosis. Neck: supple Cardiovascular: S1, S2 + Respiratory: AE fair bilaterally GI: distended, VAC +, bowel sounds hypo Musculoskeletal: No pedal edema, no cyanosis. Skin: No rash or abscess Hem/Lymphatic: No palpable cervical or supraclavicular nodes. No lymphangitis Psych: calm, no agitation Neurological: awake, alert, oriented, answering questions. - Constitutional Vitals: Vital Signs Temp Pulse Resp BP Pulse Ox 98.3 F 60 21 158/64 98 01/19/21 10:25 01/19/21 11:15 01/19/21 10:25 01/19/21 11:15 01/19/21 10:00 Temperature -Last 24 Hours Temperature 98.3 F Temperature 98.6 F Temperature 98.3 F Temperature 97.6 F Temperature 98.8 F Temperature 98.8 F Temperature 97.7 F Temperature 98.2 F Temperature 98.2 F - Labs CBC & Chem 7: 01/19/21 08:56 01/19/21 08:56 Labs: Abnormal lab results 01/18/21 01/18/21 01/18/21 Range/Units 11:53 13:44 15:08 WBC (4.5-11.0) K/mm3 RBC (3.65-5.03) M/mm3 Hgb (11.8-15.2) gm/dl Hct (35.5-45.6) % RDW (13.2-15.2) % BUN (9-20) mg/dL Creatinine (0.8-1.3) mg/dL Glucose (75-100) mg/dL POC Glucose 69 L 50 L 56 L (70-105) mg/dL Calcium (8.4-10.2) mg/dL 01/18/21 01/19/21 01/19/21 Range/Units 17:50 04:55 08:56 WBC 12.7 H (4.5-11.0) K/mm3 RBC 2.89 L (3.65-5.03) M/mm3 Hgb 8.7 L (11.8-15.2) gm/dl Hct 25.6 L (35.5-45.6) % RDW 15.5 H (13.2-15.2) % BUN (9-20) mg/dL Creatinine (0.8-1.3) mg/dL Glucose (75-100) mg/dL POC Glucose 137 H 120 H (70-105) mg/dL Calcium (8.4-10.2) mg/dL 01/19/21 Range/Units 08:56 WBC (4.5-11.0) K/mm3 RBC (3.65-5.03) M/mm3 Hgb (11.8-15.2) gm/dl Hct (35.5-45.6) % RDW (13.2-15.2) % BUN 66 H (9-20) mg/dL Creatinine 7.7 H (0.8-1.3) mg/dL Glucose 119 H (75-100) mg/dL POC Glucose (70-105) mg/dL Calcium 8.3 L (8.4-10.2) mg/dL
--- NOTE | 2021-01-19 12:59 | Progress Note ---
Assessment and Plan Assessment and plan: This is a 60 YO Male with ESRD on PD, GERD, Crohn's Disease, Nicotine Dependence, HTN, Systolic CHF(EF 35%) who presented to the emergency department on 12/22 with complaints of abdominal pain which began shortly after eating fast food rated 10/10 which is periumbilical, constant, associated with fever, nausea and multiple sites of vomiting and self-reported inability to undergo PD. In the emergency room patient underwent a CT scan of the abdomen/pelvis which revealed evidence of partial small bowel obstruction, symptoms were consistent with bacterial peritonitis. Patient was admitted to the hospital service with sepsis, peritonitis, and small bowel obstruction with consults to general surgery, nephrology, infectious disease and [facility]. 12/23. Patient had temperature 101.2 F, tachycardia and elevated lactic acid on admission. Meet sepsis criteria. Started on IV antibiotics. ID has been c onsulted. Surgery consulted this a.m.-advised laparoscopy. He remains on NG tube connected to suction. 12/24. Patient was noted to have peritonitis yesterday and patient undergoing exploratory laparotomy. Patient remained intubated after procedure and is in ICU. Now on broad-spectrum antibiotics. ID on board. 12/25. Remains mechanically ventilated and sedated. Temp 103 Fahrenheit. Antibiotics broadened-ID added fluconazole and Flagyl. Blood cultures ordered. Plan to repeat CT abdomen tomorrow if not better. Surgery following. 12/26: Patient remains on mechanical ventilation on CMV tidal line 550, rate of 14, PEEP of 8 and 30% FiO2 and sedated on fentanyl 4 micrograms. Today we will remove his Jeffery and CCM dropped his rate controlled him on CPAP. We will trend CBC given recent drop in H/H. 12/27: Patient remains intubated on CMV tidal volume 550, rate 12, PEEP 8 on 30% FiO2 at the time my examination. Patient's TPN will be changed to PPN. Patient's fentanyl drip will be changed to IV push fentanyl and have a permacath placed today and midline. Patient was placed on a spontaneous breathing trial was switched back to CMV prior to procedure. 12/28: Patient on fentanyl but awake and follows commands. At the time of my examination he was on a CPAP trial and is scheduled to receive HD today. s/o permacath and PICC placement with vascular yesterday. His blood culture grew Prevotella and addition to Streptococcus bovis. This evening Dr. Spicer attempted to extubate the patient and his heart rate went to the 180s. Stat EKG obtained and cardiology consulted. 12/29: Patient was started on amiodarone IV for A. fib RVR yesterday and today he is more rate controlled into the 70s and 80s. Patient was extubated yesterday and is currently on Ventimask. Patient will be transferred to [facility]. Patient continues to be n.p.o. with TPN and NG tube to LIS. He is hypokalemic today which was repleted. 12/30; patient was on IV amiodarone for treatment with RVR, rate is controlled. Patient was off oxygen. patient is n.p.o. and on TPN. Surgery is following the patient. 12/31: Patient was intubated overnight for respiratory distress and this morning on examination he was on assist control tidal volume 450, rate 20, PEEP 6, 100% FiO2 and RT was getting a ABG to adjust vent settings. Patient had a acute bump in WBC and per ID recommendations we will obtain a CT abdomen/pelvis if leukocytosis persist. Patient is on TPN and sedated with Levophed. Patient is also on vasopressor support with Levophed. Per surgery his ileus is resolving however will maintain OGT to LIWS. 01/01: Patient was started on a vasopressin yesterday late evening. This morning patient is on 20 mcg of Levophed and 0.03 vasopressin and sedated on 20 mcg of propofol. Patient WBC increased today and he is hypokalemic. We will treat hyperkalemia. Patient had a CT chest and abdomen/pelvis pending. The time examination total of 450, rate 20, PEEP of 6 and 35 percent FiO2. Per RN, Dr Pollock has stated that the patient will be returning to the OR today for likely anastomosis seen on CT abdomen/pelvis. 01/02: Patient noted, WBC improving, but noted to have anemia, will transfuse additional unit of Blood and repeat H/H. continue supportive care. 01/03: Continue to wean pressors, ABX PER ID, patient to return to OR today for washout and possible closure, CONTINUE TPN 01/04: Continues to show some improvement. Today is POD#12 s/p ex lap with extensive lysis of adhesions and two small bowel resections with primary anastamosis for SBO with necrotic segment small bowel. POD#3 s/p ex lap, resection of perforated anastamosis, washout and abthera wound vac placement. POD#1 s/p ex lap with right hemicolectomy. Surgery planning to take back to the OR on Saturday with the hope to anastamos ileum to transverse colon and close abdomen. keep NGT to suction. Pt in deep sedation due to open abdomen. Per ID - Continue IV Zosyn, renally dosed for Strep bacteremia treatment till 01/06/2021 -On TPN 01/05: Patient continues on HD, anticipate return to OR tomorrow for closure and anastemosis. Continues with deep sedation due to open abdomen 01/06: Continue supportive care, monitor pressures and electrolytes. He is post op Exploratory laparotomy, 2. Jejunal colonic anastomosis,3. Segmental small bowel resection and anastemosis closure today. Continue wound vac 01/07: Continue supportive care, Today is POD#15 s/p ex lap with extensive lysis of adhesions and two small bowel resections with primary anastamosis for SBO with necrotic segment small bowel. POD#6 s/p ex lap, resection of perforated anastamosis, washout and abthera wound vac placement. POD#4 s/p ex lap with right hemicolectomy. POD #1 exploratory laparotomy, 2. Jejunal colonic anastomosis,3. Segmental small bowel resection. Continue to monitor and correct electrolytes. Patient remains on fentanyl and TPN with lipids. Still hypoactive bowel sounds. 16: Patient now extubated, asked when he can go home, Still lethargic. Continue wound management, wound vac, Will need Rehab eval prior to discharge. 01/09: Patient remains on TPN, was started on labetalol drip per cardiology, africa dueñas had uncontrolled hypertension today however he cannot be given p.o. medications ileus resolves per surgery. Patient received hemodialysis today. NG tube remains to low intermittent suction. 01/10: Patient has some leukocytosis, slight hypokalemia and hyponatremia, metabolic acidosis. NG tube to LIWS, continue TPN. Patient will be downgraded to IMCU today. [facility] is working on placement. Will change frequency of hydralazine and discontinue labetalol drip. We will obtain a.m. BMP/mag/Phos and CBC. Infectious disease will like to start Zosyn if leukocytosis continues to worsen. 01/11: Patient leukocytosis has slightly improved potassium with in normal limits and other electrolytes are elevated but patient is scheduled for HD today. Remains on RA and A,A,Ox4. BP better controlled but remains elevated and we will increase clonidine dose. 01/12/2021; patient's blood pressure is better after dialysis and as needed IV medications and clonidine patch. Patient is followed by general surgery. Patient was alert and oriented and asked when he is going home. 01/13: Surgery is concerned about a leak at his anastamosis given increased output and will treat as controlled fistula and start an octreotide drip. And per surgery if he requires operative intervention will likely need to be left in discontinuity and eventual ileostomy as he has already failed two anastamoses. Patient still has tongue swelling and slurred speech. He is on Benadryl. 01/14: Patient's tongue swelling is improved, patient is alert and oriented, CAM ICU negative. Continue NG tube to low wall intermittent suction. Leukocytosis is improving. Hypomagnesemia resolved. Epogen with HD 01/15: Patient tongue swelling is much improved, bladder scan completed by bedside RN and he needed to be straight cathed. NGT output decreased. Leukocytosis improving. Patient has been having episodes of hypoglycemia during the day and he is on cyclic TPN, Lantus rescheduled to nightly and dosage decreased. 01/16: Continue management per ID and surgery. Will defer repeat CT of the abdomen to the team surgery has been approved by nephrology. Continue current diet and advance all to ice if okay with surgery discussed with nursing staff. 01/17: Discussed surgical recommendation of strict n.p.o. except for small amount of ice as patient has already failed to anastomosis. And risk for additional surgery with tissues were extremely friable from previous scar. He continues on octreotide drip to slow down GI output HARIS drain remains in place with NG suction for decompression. Patient verbalized understanding although stressed about being discharged. We will continue IMCU care unless otherwise advised by david andersen. Prognosis remains guarded continue to monitor electrolytes considering GI output. 01/18: Continue supportive care, BP mildly elevated, continue to monitor, continue current therapy, if no return to PO soon may consider Increasing clonidine to 0.3, PO when ok with surgery. 01/19: Continue supportive care, Per ID continue IV Zosyn, plan to stop at 3 weeks from last surgery end date: 01/24/2021. Other management per surgery. Continue TPN Severe Sepsis with shock Streptococcus bovis bacteremia/Prevotella bacteremia Gwendolyn albicans tracheal aspirate Small bowel obstruction/necrotic bowel s/p ex lap with extensive lysis of adhesions, 2 small bowel resections with primary anastomosis, right hemicolectomy, jejunal colonic anastomosis, segmental small bowel resection Postoperative ileus Atrial fibrillation with RVR Leukocytosis Hypochloremia Gwendolyn albicans in tracheal aspirate from 12/24 ESRD on PD, PermCath to be placed Transaminitis Systolic CHF(EF 35%) Crohn's disease Hypertension -CCM, surgery, infectious disease, nephrology, vascular surgery, cardiology co nsulted, appreciate recommendations -12/24 S/p ex lap with extensive expectations, 2 small bowel resections with primary anastomosis with surgery on 12/23 -s/p PICC and Permacath placement with vascular surgery on 12/27 -Extubated on 12/28, reintubated 12/31 for respiratory distress and extubated 01/08 -12/29 echocardiogram shows moderate concentric LVH, small pericardial effusion, transmitral Doppler flow pattern is grade 1 abnormal relaxation pattern, left- ventricular systolic function normal, LVEF 50 to 55%, no wall motion abnormalities. -01/01 CT abdomen/pelvis shows small pericardial effusion, mild coronary artery atherosclerotic calcification, small bilateral pleural effusions with associated volume loss, no convincing evidence of bowel obstruction or inflammation, postoperative changes from interval/recent midline laparotomy with a moderate amount of free fluid throughout the abdomen, small amount of dependent free air presumably postoperative -01/02 s/p ex lap, resection of perforated anastamosis, washout and abthera wound vac placement. -01/04 s/p ex lap with right hemicolectomy. -01/06 s/p exploratory laparotomy, Jejunal colonic anastomosis, Segmental small bowel resection. -s/p Vasopressor support with Levophed and vasopressin -Transitioned to HD from PD -HD per nephro, Epogen with HD -Strict NPO -TPN -Octreotide drip -NGT to LIWS -s/p IV antibiotics -Tobacco abuse cessation counseling -Trend CBC, BMP DVT/GI prophylaxis: PPI, heparin subcu, SCDs to bilateral lower extremities while in bed Disposition: IMCU Hospitalist Physical - Constitutional Vitals: Temp Pulse Resp BP Pulse Ox 98.6 F 74 15 141/63 100 01/19/21 12:00 01/19/21 12:45 01/19/21 12:01 01/19/21 12:45 01/19/21 12:01 General appearance: Present: no acute distress HEART Score - HEART Score Troponin: Troponin T 0.021 ng/mL (0.00-0.029) 12/22/20 14:38 Results - Labs CBC & Chem 7: 01/19/21 08:56 01/19/21 08:56 Labs: Laboratory Last Values WBC 12.7 K/mm3 (4.5-11.0) H 01/19/21 08:56 RBC 2.89 M/mm3 (3.65-5.03) L 01/19/21 08:56 Hgb 8.7 gm/dl (11.8-15.2) L 01/19/21 08:56 Hct 25.6 % (35.5-45.6) L 01/19/21 08:56 MCV 89 fl (84-94) 01/19/21 08:56 MCH 30 pg (28-32) 01/19/21 08:56 MCHC 34 % (32-34) 01/19/21 08:56 RDW 15.5 % (13.2-15.2) H 01/19/21 08:56 Plt Count 273 K/mm3 (140-440) 01/19/21 08:56 Lymph % (Auto) 4.4 % (13.4-35.0) L 01/13/21 03:45 [place] % (Auto) 10.3 % (0.0-7.3) H 01/13/21 03:45 Eos % (Auto) 0.9 % (0.0-4.3) 01/13/21 03:45 Baso % (Auto) 0.2 % (0.0-1.8) 01/13/21 03:45 Lymph # (Auto) 0.8 K/mm3 (1.2-5.4) L 01/13/21 03:45 [place] # (Auto) 1.8 K/mm3 (0.0-0.8) H 01/13/21 03:45 Eos # (Auto) 0.2 K/mm3 (0.0-0.4) 01/13/21 03:45 Baso # (Auto) 0.0 K/mm3 (0.0-0.1) 01/13/21 03:45 Add Manual Diff Complete 01/10/21 09:26 Total Counted 100 01/10/21 09:26 Seg Neutrophils % 84.2 % (40.0-70.0) H 01/13/21 03:45 Seg Neuts % (Manual) 95.0 % (40.0-70.0) H 01/10/21 09:26 Band Neutrophils % 1.0 % 01/10/21 09:26 Lymphocytes % (Manual) 3.0 % (13.4-35.0) L 01/10/21 09:26 Reactive Lymphs % (Man) 1.0 % 12/29/20 05:16 Monocytes % (Manual) 1.0 % (0.0-7.3) 01/10/21 09:26 Eosinophils % (Manual) 2.0 % (0.0-4.3) 12/29/20 05:16 Metamyelocytes % 2.0 % 12/29/20 05:16 Nucleated RBC % Not Reportable 01/10/21 09:26 Seg Neutrophils # 14.8 K/mm3 (1.8-7.7) H 01/13/21 03:45 Seg Neutrophils # Man 17.3 K/mm3 (1.8-7.7) H 01/10/21 09:26 Band Neutrophils # 0.2 K/mm3 01/10/21 09:26 Lymphocytes # (Manual) 0.5 K/mm3 (1.2-5.4) L 01/10/21 09:26 Abs React Lymphs (Man) 0.0 K/mm3 01/10/21 09:26 Monocytes # (Manual) 0.2 K/mm3 (0.0-0.8) 01/10/21 09:26 Eosinophils # (Manual) 0.0 K/mm3 (0.0-0.4) 01/10/21 09:26 Basophils # (Manual) 0.0 K/mm3 (0.0-0.1) 01/10/21 09:26 Metamyelocytes # 0.0 K/mm3 01/10/21 09:26 Myelocytes # 0.0 K/mm3 01/10/21 09:26 Promyelocytes # 0.0 K/mm3 01/10/21 09:26 Blast Cells # 0.0 K/mm3 01/10/21 09:26 WBC Morphology Not Reportable 01/10/21 09:26 Hypersegmented Neuts Not Reportable 01/10/21 09:26 Hyposegmented Neuts Not Reportable 01/10/21 09:26 Hypogranular Neuts Not Reportable 01/10/21 09:26 Smudge Cells Not Reportable 01/10/21 09:26 Toxic Granulation 1+ 01/10/21 09:26 Toxic Vacuolation Not Reportable 01/10/21 09:26 Dohle Bodies Not Reportable 01/10/21 09:26 Pelger-Huet Anomaly Not Reportable 01/10/21 09:26 Lamar Rods Not Reportable 01/10/21 09:26 Platelet Estimate Consistent w auto 01/10/21 09:26 Clumped Platelets Not Reportable 01/10/21 09:26 Plt Clumps, EDTA Not Reportable 01/10/21 09:26 Large Platelets Not Reportable 01/10/21 09:26 Giant Platelets Not Reportable 01/10/21 09:26 Platelet Satelliting Not Reportable 01/10/21 09:26 Plt Morphology Comment Not Reportable 01/10/21 09:26 RBC Morphology Not Reportable 01/10/21 09:26 Dimorphic RBCs Not Reportable 01/10/21 09:26 Polychromasia Not Reportable 01/10/21 09:26 Hypochromasia Not Reportable 01/10/21 09:26 Poikilocytosis Not Reportable 01/10/21 09:26 Anisocytosis 1+ 01/10/21 09:26 Microcytosis Not Reportable 01/10/21 09:26 Macrocytosis Not Reportable 01/10/21 09:26 Spherocytes Not Reportable 01/10/21 09:26 Pappenheimer Bodies Not Reportable 01/10/21 09:26 Sickle Cells Not Reportable 01/10/21 09:26 Target Cells Not Reportable 01/10/21 09:26 Tear Drop Cells Not Reportable 01/10/21 09:26 Ovalocytes Not Reportable 01/10/21 09:26 Helmet Cells Not Reportable 01/10/21 09:26 [place] Bodies Not Reportable 01/10/21 09:26 Mccarr Rings Not Reportable 01/10/21 09:26 Jenny Cells Not Reportable 01/10/21 09:26 Bite Cells Not Reportable 01/10/21 09:26 Crenated Cell Not Reportable 01/10/21 09:26 Elliptocytes Not Reportable 01/10/21 09:26 Acanthocytes (Spur) Not Reportable 01/10/21 09:26 Rouleaux Not Reportable 01/10/21 09:26 Hemoglobin C Crystals Not Reportable 01/10/21 09:26 Schistocytes Not Reportable 01/10/21 09:26 Malaria parasites Not Reportable 01/10/21 09:26 Lucas Bodies Not Reportable 01/10/21 09:26 Hem Pathologist Commnt No 01/10/21 09:26 PT 16.9 Sec. (12.2-14.9) H 01/01/21 12:45 INR 1.39 (0.87-1.13) H 01/01/21 12:45 APTT 25.1 Sec. (24.2-36.6) 12/22/20 14:38 ABG pH 7.345 pH Units (7.350-7.450) L 01/07/21 17:14 POC ABG pCO2 41.4 mmHg (32.0-48.0) 01/07/21 03:07 ABG pCO2 40.3 mm Hg 01/07/21 17:14 POC ABG pO2 94.5 mmHg (83-108) 01/07/21 03:07 ABG pO2 67.4 mm Hg (80.0-90.0) L 01/07/21 17:14 POC ABG HCO3 22.7 01/07/21 03:07 ABG HCO3 21.5 mmol/L (20.0-26.0) 01/07/21 17:14 ABG O2 Saturation 94.3 % (95.0-99.0) L 01/07/21 17:14 ABG O2 Content 11.6 (0.0-44) 01/07/21 17:14 POC ABG Base Excess -2.7 01/07/21 03:07 ABG Base Excess -3.9 mmol/L (-2.0-3.0) L 01/07/21 17:14 ABG Hemoglobin 8.9 gm/dl (14.0-18.0) L 01/07/21 17:14 ABG Oxyhemoglobin 96.6 (94-98) 01/07/21 03:07 ABG Carboxyhemoglobin 1.5 % (0.0-5.0) 01/07/21 17:14 ABG Methemoglobin 0.6 % (0.0-1.5) 01/07/21 17:14 ABG Sodium 135.6 mmol/L (136.0-145.0) L 01/07/21 03:07 ABG Potassium 4.0 mmol/L (3.40-4.50) 01/07/21 03:07 ABG Chloride 102.0 mmol/L (98-107) 01/07/21 03:07 ABG Glucose 181 mg/dL (65-95) H 01/07/21 03:07 Oxyhemoglobin 92.3 % (95.0-99.0) L 01/07/21 17:14 Carboxyhemoglobin 0.7 (0.5-1.5) 01/07/21 03:07 FiO2 21 % 01/07/21 17:14 FiO2 % 45.0 01/07/21 03:07 Sodium 142 mmol/L (137-145) 01/19/21 08:56 Potassium 4.2 mmol/L (3.6-5.0) 01/19/21 08:56 Chloride 101.9 mmol/L (98-107) 01/19/21 08:56 Carbon Dioxide 26 mmol/L (22-30) 01/19/21 08:56 Anion Gap 18 mmol/L 01/19/21 08:56 BUN 66 mg/dL (9-20) H 01/19/21 08:56 Creatinine 7.7 mg/dL (0.8-1.3) H 01/19/21 08:56 Estimated GFR 9 ml/min 01/19/21 08:56 BUN/Creatinine Ratio 9 % 01/19/21 08:56 Glucose 119 mg/dL (75-100) H 01/19/21 08:56 POC Glucose 120 mg/dL (70-105) H 01/19/21 04:55 Lactic Acid 1.10 mmol/L (0.7-2.0) 01/14/21 05:39 Calcium 8.3 mg/dL (8.4-10.2) L 01/19/21 08:56 Phosphorus 4.70 mg/dL (2.5-4.5) H D 01/18/21 04:19 Magnesium 2.00 mg/dL (1.7-2.3) 01/18/21 04:19 Total Bilirubin 0.90 mg/dL (0.1-1.2) 01/08/21 04:34 AST 30 units/L (5-40) 01/08/21 04:34 ALT 29 units/L (7-56) 01/08/21 04:34 Alkaline Phosphatase 133 units/L (35-129) H 01/08/21 04:34 Ammonia 30.0 umol/L (25-60) 12/22/20 14:38 Troponin T 0.021 ng/mL (0.00-0.029) 12/22/20 14:38 Total Protein 5.4 g/dL (6.3-8.2) L 01/08/21 04:34 Albumin 1.9 g/dL (3.9-5) L 01/08/21 04:34 Albumin/Globulin Ratio 0.5 % 01/08/21 04:34 Triglycerides 73 mg/dL (2-149) 01/18/21 04:19 Lipase 41 units/L (13-60) 12/22/20 14:38 Procalcitonin > 200.00 ng/mL (<0.15) 12/24/20 15:06 TSH 1.470 mlU/mL (0.270-4.200) 12/28/20 19:44 Arterial Blood Glucose 181 mg/dL (65-95) H 01/07/21 03:07 Arterial Blood Ionized Calcium 4.3 mg/dL (4.6-5.3) L 01/07/21 03:07 Urine Color Yellow (Yellow) 12/22/20 18:53 Urine Turbidity Clear (Clear) 12/22/20 18:53 Urine pH 7.0 (5.0-7.0) 12/22/20 18:53 Ur Specific [place] 1.012 (1.003-1.030) 12/22/20 18:53 Urine Protein >500 mg/dL (Negative) 12/22/20 18:53 Urine Glucose (UA) Neg mg/dL (Negative) 12/22/20 18:53 Urine Ketones Neg mg/dL (Negative) 12/22/20 18:53 Urine Blood Neg (Negative) 12/22/20 18:53 Urine Nitrite Neg (Negative) 12/22/20 18:53 Urine Bilirubin Neg (Negative) 12/22/20 18:53 Urine Urobilinogen < 2.0 mg/dL (<2.0) 12/22/20 18:53 Ur Leukocyte Esterase Neg (Negative) 12/22/20 18:53 Urine WBC (Auto) < 1.0 /HPF (0.0-6.0) 12/22/20 18:53 Urine RBC (Auto) 1.0 /HPF (0.0-6.0) 12/22/20 18:53 Fluid Type Dialysate 12/22/20 Unknown Fluid Color Colorless 12/22/20 Unknown Fluid Appearance Cloudy 12/22/20 Unknown Fluid WBC 208 /mm3 12/22/20 Unknown Fluid RBC 45 /mm3 12/22/20 Unknown Fluid Seg Neutrophils 82.0 % 12/22/20 Unknown Fluid Lymphocytes 11.0 % 12/22/20 Unknown Fluid Reactive Lymphs 0 % 12/22/20 Unknown Fluid Monocytes 7.0 % 12/22/20 Unknown Fluid Eosinophils 0 % 12/22/20 Unknown Fluid Basophils 0 % 12/22/20 Unknown Random Vancomycin 13.7 ug/mL (0-40.0) 12/26/20 Unknown Digoxin 0.8 ng/mL (0.9-2.0) L 01/11/21 05:18 Hepatitis A IgM Ab Non-reactive (NonReactive) 12/23/20 11:38 Hep Bs Antigen Non-reactive (Negative) 12/23/20 11:38 Hep B Core IgM Ab Non-reactive (NonReactive) 12/23/20 11:38 Hepatitis C Antibody Non-reactive (NonReactive) 12/23/20 11:38 Blood Type A POSITIVE 01/06/21 07:10 Antibody Screen Negative 01/06/21 07:10 Crossmatch See Detail 01/06/21 07:10 Jeffery/IV: Voiding Method Self-Catheterization Active Medications - Current Medications Current Medications: Generic Name Dose Route Start Last Admin Trade Name Freq PRN Reason Stop Dose Admin Acetaminophen 650 mg 12/31/20 15:30 12/31/20 15:13 Acetaminophen 650 Mg Rect Supp [place] 650 mg Q6H PRN Administration Non Cardiac Pain or Temp>100.5 Clonidine HCl 0.2 mg 01/11/21 10:00 01/18/21 10:11 Clonidine Tts 0.2 Mg/24 Hr Patch TD 0.2 mg We THOMAS Administration Dextrose 50 ml 01/14/21 17:59 01/18/21 15:10 Dextrose 50% In Water (25gm) 50 Ml Syringe IV 20 ml Q30MIN PRN Administration Hypoglycemia Protocol Digoxin 0.125 mg 01/09/21 12:00 01/17/21 12:57 Digoxin 0.5 Mg/2 Ml Inj IV 0.125 mg Q48H THOMAS Administration Famotidine 10 mg 12/24/20 13:00 01/18/21 21:08 Famotidine 20 Mg/2 Ml Inj IV 10 mg BID THOMAS Administration Haloperidol Lactate 5 mg 12/29/20 14:16 01/16/21 00:14 Haloperidol Lactate 5 Mg/1 Ml Inj IV 5 mg Q12H PRN Administration Agitation Heparin Sodium (Porcine) 5,000 unit 12/24/20 10:00 01/18/21 21:12 Heparin 5,000 Unit/1 Ml Vial SUB-Q 5,000 unit Q12HR THOMAS Administration Hydralazine HCl 10 mg 01/10/21 14:00 01/19/21 05:08 Hydralazine 20 Mg/1 Ml Inj IV 10 mg Q4HR THOMAS Administration Hydromorphone HCl 0.25 mg 01/09/21 10:53 01/16/21 21:48 Hydromorphone 1 Mg/1 Ml Inj IV 0.25 mg Q6H PRN Administration Pain , Severe (7-10) Hydrophilic Ointment 1 applic 12/31/20 06:39 01/11/21 21:28 Lip Therapy Vaseline TP 1 applic Q2HR PRN Administration Dry Lips Octreotide Acetate 500 mcg/ 101 mls @ 5.05 mls/hr 01/13/21 11:00 01/19/21 05:11 Sodium Chloride IV 25 mcg/hr TITR THOMAS 5.05 mls/hr Administration Protocol 25 MCG/HR Piperacillin Sod/Tazobactam Sod 2.25 gm in 50 mls @ 100 mls/hr 01/13/21 12:00 01/19/21 04:35 Zosyn/Ns 2.25 Gm/50ml IV 100 mls/hr Q8H [facility] Administration Protocol Amino Acids/Electrolytes/Dextrose 2,016 mls @ 84 mls/hr 01/18/21 20:00 05/02/13 21:50 Tpn Adult IV 01/19/21 19:59 84 mls/hr [email or web address] [facility] Administration Protocol As Directed Dextrose/Sodium Chloride 1,000 mls @ 45 mls/hr 01/18/21 15:00 01/18/21 14:43 D5/0.45ns IV 45 mls/hr DIRECT THOMAS Administration Sodium Chloride 100 mls @ 999 mls/hr 01/19/21 09:30 Nacl 0.9% IV [place] PRN Hypotension Amino Acids/Electrolytes/Dextrose 2,016 mls @ 84 mls/hr 01/19/21 20:00 Tpn Adult IV 01/20/21 19:59 [email or web address] [facility] Protocol Insulin Glargine 5 units 01/18/21 22:00 01/18/21 21:11 Insulin Glargine 100 Units/Ml SUB-Q 5 units QHS [facility] Administration Insulin Human Lispro 0 unit 01/03/21 12:00 01/19/21 05:09 Insulin Lispro 100 Unit/Ml SUB-Q Not Given Q6HR [facility] Protocol Metoprolol Tartrate 5 mg 12/30/20 12:00 01/19/21 01:02 Metoprolol Tartrate 5 Mg/5 Ml Inj IV Not Given Q4HR [facility] Multi-Ingred Cream/Lotion/Oil/Oint 1 applic 12/31/20 06:39 Mineral Oil/Petrolatum, White Ophth Oint 3.5 Gm OU Q4HR PRN Dry Eye(s) Scopolamine 1 each 01/15/21 11:00 01/18/21 09:08 Scopolamine Transdermal Patch 72 Hr TD 1 each Q3D THOMAS Administration Sodium Chloride 10 ml 12/22/20 22:00 01/18/21 21:10 Sodium Chloride 0.9% 10 Ml Flush Syringe IV 10 ml BID THOMAS Administration Sodium Chloride 10 ml 12/22/20 19:42 01/09/21 17:27 Sodium Chloride 0.9% 10 Ml Flush Syringe IV 10 ml PRN PRN Administration LINE FLUSH Nutrition/Malnutrition Assess - Dietary Evaluation Nutrition/Malnutrition Findings: Nutrition Notes Start: 12/24/20 12:36 Freq: Status: Active Protocol: Document 01/19/21 12:01 (Rec: 01/19/21 12:09 [email or web address]) Nutrition Notes Initial or Follow up Reassessment Current Diagnosis CKD (stage V CKD),Sepsis, Hypertension,Heart Failure, Small Bowel Obstruction Other Pertinent Diagnosis Peritonitis, SBO s/p resection Current Diet CPN at 84 ml/hr Labs/Tests Reviewed Pertinent Medications D5 1/2 NS at 45 ml/hr Height 5 ft 7 in Weight 81.9 kg [place] Body Weight (kg) 67.27 BMI 28.3 Weight change and time frame wt change noted, pt on HD Weight Status Overweight Subjective/Other Information TPN day 25. Spoke with pharmacy, pt unable to tolerate cyclic TPN due to low BG. Will change to continous. Percent of energy/protein needs met: 100%/100% Burn Absent Trauma Absent Current % PO Negligible Minimum of two criteria No #2 Nutrition Diagnosis Increased nutrient needs ( specify in comment below) Diagnosis Progress(for reassessment Continues documentation) #1 Nutrition Diagnosis Inadequate oral intake Diagnosis Progress(for reassessment Continues documentation) Is patient on ventilator? No Is Patient Ambulatory and/or Out of Bed No REE-([place]-confined to bed) 1898.124 Kcal/Kg value to use for calculation 18 Approximate Energy Requirements Using 1474 kcal/Kg Calculation Used for Recommendations Kcal/kg Additional Notes Pro needs: 101-121 g/day (1.25 -1.5 g/kg AdjBW, 81kg) Fluid needs per MD. Nutrition Intervention Change Diet Order: Continue CPN Nutrition Support: Continous CPN at 84 ml/hr. MVI Kcal 1,674 Protein (gm) 121 Carbohydrates (gm) 350 Fat (gm) 0 Fluid (mL) 2,016 Fiber (gm) 0 Goal #1 Meet at least 75% of estimated energy and protein needs via CPN Anticipated Discharge Needs: 16 hour cyclic TPN Follow-Up By: 01/20/21 Additional Comments Labs in AM: BMP, Mg and Phos
[2021-01-19] MEDS: EPOETIN ALFA-EPBX 10,000 UNIT/1 ML VIAL SUB-Q PRN (13:32)
[2021-01-19] MEDS: FAMOTIDINE 20 MG/2 ML INJ IV SCH ×2 (14:45→21:15)
[2021-01-19] MEDS: DIGOXIN 0.5 MG/2 ML INJ IV SCH (14:45)
[2021-01-19] MEDS: HEPARIN 5,000 UNIT/1 ML VIAL SUB-Q SCH ×2 (14:45→21:17)
--- NOTE | 2021-01-19 14:57 | Progress Note ---
Assessment and Plan POD#26 s/p ex lap with extensive lysis of adhesions and two small bowel resections with primary anastamosis for SBO with necrotic segment small bowel. POD#17 s/p ex lap, resection of perforated anastamosis, washout and abthera wound vac placement. POD#15 s/p ex lap with right hemicolectomy. POD#13 s/p ex lap, with jejunal-colonic anastamosis and closure of abdomen. Afebrile and stable. - concerned about a leak at his anastamosis. Clinically improved with decreased output that is becoming more serous. Blood supply was evaluated at time of last surgery with ICG and found to be adequate. Pt was on several days of steroids for tongue swelling which may have contributed to leak. Currently since he is stable and afebrile will treat like controlled fistua. He is extremely high risk for additional surgery with tissues that are extremely friable and previous scar tissue that makes his anatomy very difficult to manipulate. Will continue octreotide drip to try to slow down GI output. If he requires operative intervention will likely need to be left in discontinuity and eventual ileostomy as he has already failed two anastamoses. Continue HARIS drain suction with and NGT deccompression. Strict NPO except for small amount of ice chips. HARIS drain must be secured and kept in place. No interval change in management at time. If output is below 100ml per 24 hours for several days will switch from octreotide drip, to daily scheduled dosing and continue to evaluate output. Prognosis is gaurded. Subjective Date of service: 01/19/21 Narrative: no acute events overnight. Pt was on dialysis during evaluation. He has no complaints and says he wants to sleep, eat, and go home. Objective Vital Signs - 12hr 01/19/21 01/19/21 01/19/21 03:00 04:00 04:01 Temperature 98.3 F Pulse Rate 72 62 Pulse Rate [ 62 From Monitor] Respiratory 22 16 15 Rate Blood Pressure 154/69 176/71 O2 Sat by Pulse 97 97 Oximetry 01/19/21 01/19/21 01/19/21 04:10 05:00 05:08 Temperature Pulse Rate 62 62 59 L Pulse Rate [ From Monitor] Respiratory 15 Rate Blood Pressure 158/74 158/74 O2 Sat by Pulse 99 Oximetry 01/19/21 01/19/21 01/19/21 06:01 07:01 08:00 Temperature 98.6 F Pulse Rate 66 60 Pulse Rate [ From Monitor] Respiratory 24 15 Rate Blood Pressure 158/74 152/72 O2 Sat by Pulse 98 100 Oximetry 01/19/21 01/19/21 01/19/21 08:01 09:00 10:00 Temperature Pulse Rate 73 68 67 Pulse Rate [ From Monitor] Respiratory 13 20 14 Rate Blood Pressure 177/77 155/71 142/71 O2 Sat by Pulse 99 97 98 Oximetry 01/19/21 01/19/21 01/19/21 10:25 10:30 10:45 Temperature 98.3 F Pulse Rate 64 61 66 Pulse Rate [ From Monitor] Respiratory 21 Rate Blood Pressure 152/72 150/72 152/74 O2 Sat by Pulse Oximetry 01/19/21 01/19/21 01/19/21 11:00 11:15 11:30 Temperature Pulse Rate 61 60 65 Pulse Rate [ From Monitor] Respiratory 14 Rate Blood Pressure 168/81 158/64 156/70 O2 Sat by Pulse 100 Oximetry 01/19/21 01/19/21 01/19/21 11:45 12:00 12:01 Temperature 98.6 F Pulse Rate 61 64 66 Pulse Rate [ From Monitor] Respiratory 15 Rate Blood Pressure 150/70 145/74 145/74 O2 Sat by Pulse 100 Oximetry 01/19/21 01/19/21 01/19/21 12:15 12:30 12:45 Temperature Pulse Rate 73 79 74 Pulse Rate [ From Monitor] Respiratory Rate Blood Pressure 142/69 135/58 141/63 O2 Sat by Pulse Oximetry 01/19/21 01/19/21 01/19/21 13:00 13:15 13:30 Temperature Pulse Rate 74 64 74 Pulse Rate [ From Monitor] Respiratory Rate Blood Pressure 130/63 130/63 117/68 O2 Sat by Pulse Oximetry 01/19/21 01/19/21 01/19/21 13:45 14:00 14:10 Temperature 98.2 F Pulse Rate 70 67 65 Pulse Rate [ From Monitor] Respiratory 19 Rate Blood Pressure 128/70 137/68 136/66 O2 Sat by Pulse Oximetry - General physical appearance well developed, no distress, no pain - Respiratory normal expansion, normal respiratory effort - Abdomen soft, other (non tender, HARIS drain with less bilious out put, NGT bilious, incisional vac with SS drainage) - Labs 01/19/21 08:56 01/19/21 08:56 Diabetes panel 01/19/21 Range/Units 08:56 Sodium 142 (137-145) mmol/L Potassium 4.2 (3.6-5.0) mmol/L Chloride 101.9 (98-107) mmol/L Carbon Dioxide 26 (22-30) mmol/L BUN 66 H (9-20) mg/dL Creatinine 7.7 H (0.8-1.3) mg/dL Glucose 119 H (75-100) mg/dL Calcium 8.3 L (8.4-10.2) mg/dL Calcium panel 01/19/21 Range/Units 08:56 Calcium 8.3 L (8.4-10.2) mg/dL Pituitary panel 01/19/21 Range/Units 08:56 Sodium 142 (137-145) mmol/L Potassium 4.2 (3.6-5.0) mmol/L Chloride 101.9 (98-107) mmol/L Carbon Dioxide 26 (22-30) mmol/L BUN 66 H (9-20) mg/dL Creatinine 7.7 H (0.8-1.3) mg/dL Glucose 119 H (75-100) mg/dL Calcium 8.3 L (8.4-10.2) mg/dL Adrenal panel 01/19/21 Range/Units 08:56 Sodium 142 (137-145) mmol/L Potassium 4.2 (3.6-5.0) mmol/L Chloride 101.9 (98-107) mmol/L Carbon Dioxide 26 (22-30) mmol/L BUN 66 H (9-20) mg/dL Creatinine 7.7 H (0.8-1.3) mg/dL Glucose 119 H (75-100) mg/dL Calcium 8.3 L (8.4-10.2) mg/dL
--- NOTE | 2021-01-19 15:51 | Progress Note ---
Assessment and Plan Acute hypoxemic respiratory failure, on mechanical ventilatory support. Severe Sepsis Peritonitis Acute small-bowel obstruction with tissue necrosis. End-stage renal disease, on dialysis. Hypertension. Crohn's disease. Gastroesophageal reflux disease. Heart failure with reduced ejection fraction. Hyperkalemia. Anemia that is normocytic. Lactic acidosis. Oropharyngeal dysphagia - no new issues today, continue care as below; - continue octreotide - continue Robinul 0.2mg IV q6h - follow clinically for S&S of infection re: fevers / WBC - continue total parenteral nutrition - prn vasopressors for target MAP > 65 mmHg - continue wound care per RN/WCN - continue to wean supplemental oxygen for target O2 sat's > 92% acutely - aspiration precautions - continue bronchodilators with pulmonary hygiene per RT - wean per pulmonary driven protocols otherwise - HD/UF per nephrology prescription for toxin and volume control - avoid nephrotoxins, renally dose all medications - continue accuchecks with glycemic control per SSI (While critically ill target blood glucose of 140-180 mg/dL; avoid hypoglycemia) - sedation prn for target RASS 0 to -1 - continue to avoid benzodiazepine's, reduce the possibility of delirium - complete AB's per ID rec's - prn analgesia per CPOT score - Maintenance of sleep-wake cycle, avoid delirium - enteral nutritional support at goal rate as tolerated (once cleared by surgeon) - G.I. & VTE prophylaxis - PT/OT/ROM exercises - continue mobility protocols for pressure ulcer prophylaxis - Monitor hemodynamics closely - continue other care per attending / other consultants - discharge planning ongoing concurrently .... Re-evaluate in am & prn CONDITION: FAIR PROGNOSIS: GUARDED CODE STATUS: FULL CODE Subjective Date of service: 01/19/21 Principal diagnosis: Ac hypoxemic resp failure; Severe Sepsis; Peritonitis; Acute SBO; ESRD; CHF Interval history: Patient is seen today for: Ac hypoxemic resp failure; Severe Sepsis; Peritonitis; Acute SBO; ESRD on Dialysis; HTN; Crohn's disease; HFrEF Seen and examined at bedside; 24hour events reviewed; nursing and respiratory care staff consulted; no adverse overnight events reported to me; resting in bed; remains on supplemental oxygen; remains on octreotide; remains NPO; remains dialysis dependent Objective Vital Signs - 12hr 01/19/21 01/19/21 01/19/21 04:00 04:01 04:10 Temperature 98.3 F Pulse Rate 62 62 Pulse Rate [ 62 From Monitor] Respiratory 16 15 Rate Blood Pressure 176/71 O2 Sat by Pulse 97 97 Oximetry 01/19/21 01/19/21 01/19/21 05:00 05:08 06:01 Temperature Pulse Rate 62 59 L 66 Pulse Rate [ From Monitor] Respiratory 15 24 Rate Blood Pressure 158/74 158/74 158/74 O2 Sat by Pulse 99 98 Oximetry 01/19/21 01/19/21 01/19/21 07:01 08:00 08:01 Temperature 98.6 F Pulse Rate 60 73 Pulse Rate [ From Monitor] Respiratory 15 13 Rate Blood Pressure 152/72 177/77 O2 Sat by Pulse 100 99 Oximetry 01/19/21 01/19/21 01/19/21 09:00 10:00 10:25 Temperature 98.3 F Pulse Rate 68 67 64 Pulse Rate [ From Monitor] Respiratory 20 14 21 Rate Blood Pressure 155/71 142/71 152/72 O2 Sat by Pulse 97 98 Oximetry 01/19/21 01/19/21 01/19/21 10:30 10:45 11:00 Temperature Pulse Rate 61 66 61 Pulse Rate [ From Monitor] Respiratory 14 Rate Blood Pressure 150/72 152/74 168/81 O2 Sat by Pulse 100 Oximetry 01/19/21 01/19/21 01/19/21 11:15 11:30 11:45 Temperature Pulse Rate 60 65 61 Pulse Rate [ From Monitor] Respiratory Rate Blood Pressure 158/64 156/70 150/70 O2 Sat by Pulse Oximetry 01/19/21 01/19/21 01/19/21 12:00 12:01 12:15 Temperature 98.6 F Pulse Rate 64 66 73 Pulse Rate [ From Monitor] Respiratory 15 Rate Blood Pressure 145/74 145/74 142/69 O2 Sat by Pulse 100 Oximetry 01/19/21 01/19/21 01/19/21 12:30 12:45 13:00 Temperature Pulse Rate 79 74 74 Pulse Rate [ From Monitor] Respiratory Rate Blood Pressure 135/58 141/63 130/63 O2 Sat by Pulse Oximetry 01/19/21 01/19/21 01/19/21 13:15 13:30 13:45 Temperature Pulse Rate 64 74 70 Pulse Rate [ From Monitor] Respiratory Rate Blood Pressure 130/63 117/68 128/70 O2 Sat by Pulse Oximetry 01/19/21 01/19/21 14:00 14:10 Temperature 98.2 F Pulse Rate 67 65 Pulse Rate [ From Monitor] Respiratory 19 Rate Blood Pressure 137/68 136/66 O2 Sat by Pulse Oximetry Constitutional: no acute distress, other (elderly male with milldy increased respiratory effort) Eyes: non-icteric ENT: oropharynx moist, oropharyngeal exudate pre (improved), other (macroglossia improved) Neck: supple, no lymphadenopathy, no JVD Effort: normal Ascultation: Bilateral: diminished breath sounds, rhonchi Percussion: Bilateral: not dull Cardiovascular: regular rate and rhythm Gastrointestinal: hypoactive bowel sounds, soft, non-tender, non-distended (protuberant), other (Midline abdominal incision ) Integumentary: other (Midline abdominal incision ) Extremities: no cyanosis, no edema, pulses normal, no ischemia or petechiae Neurologic: non-focal exam, pupils equal and round, CN II-XII normal, motor strength normal and Psychiatric: mood appropriate, affect normal CBC and BMP: 01/20/21 03:35 01/24/21 04:45 ABG, PT/INR, D-dimer: ABG ABG pH 7.345 pH Units (7.350-7.450) L 01/07/21 17:14 POC ABG pCO2 41.4 mmHg (32.0-48.0) 01/07/21 03:07 ABG pCO2 40.3 mm Hg 01/07/21 17:14 POC ABG pO2 94.5 mmHg (83-108) 01/07/21 03:07 ABG pO2 67.4 mm Hg (80.0-90.0) L 01/07/21 17:14 POC ABG HCO3 22.7 01/07/21 03:07 ABG O2 Saturation 94.3 % (95.0-99.0) L 01/07/21 17:14 PT/INR, D-dimer PT 16.9 Sec. (12.2-14.9) H 01/01/21 12:45 INR 1.39 (0.87-1.13) H 01/01/21 12:45 Abnormal lab findings: Abnormal Labs 12/22/20 12/22/20 12/22/20 14:38 14:38 14:38 WBC RBC Hgb 11.2 L Hct 35.0 L MCV MCHC RDW 16.7 H Plt Count Lymph % (Auto) [place] % (Auto) Lymph # (Auto) [place] # (Auto) Seg Neutrophils % Seg Neuts % (Manual) 94.0 H Lymphocytes % (Manual) 5.0 L Monocytes % (Manual) Seg Neutrophils # Seg Neutrophils # Man Lymphocytes # (Manual) 0.3 L Monocytes # (Manual) PT INR ABG pH POC ABG pCO2 POC ABG pO2 ABG pO2 ABG HCO3 ABG O2 Saturation ABG Base Excess ABG Hemoglobin ABG Oxyhemoglobin ABG Sodium ABG Potassium ABG Chloride ABG Glucose Oxyhemoglobin Sodium Potassium Chloride Carbon Dioxide BUN 58 H Creatinine 13.2 H Glucose 113 H POC Glucose Lactic Acid 3.60 H* Calcium Phosphorus Magnesium Total Bilirubin 1.30 H AST ALT Alkaline Phosphatase 155 H Total Protein Albumin Triglycerides Arterial Blood Glucose Arterial Blood Ionized Calcium Digoxin Crossmatch 12/22/20 12/22/20 12/23/20 16:26 17:47 05:22 WBC RBC Hgb Hct MCV MCHC RDW Plt Count Lymph % (Auto) [place] % (Auto) Lymph # (Auto) [place] # (Auto) Seg Neutrophils % Seg Neuts % (Manual) Lymphocytes % (Manual) Monocytes % (Manual) Seg Neutrophils # Seg Neutrophils # Man Lymphocytes # (Manual) Monocytes # (Manual) PT INR ABG pH POC ABG pCO2 POC ABG pO2 ABG pO2 ABG HCO3 ABG O2 Saturation ABG Base Excess ABG Hemoglobin ABG Oxyhemoglobin ABG Sodium ABG Potassium ABG Chloride ABG Glucose Oxyhemoglobin Sodium Potassium Chloride Carbon Dioxide BUN Creatinine Glucose POC Glucose Lactic Acid 2.80 H* 3.10 H* 2.30 H* Calcium Phosphorus Magnesium Total Bilirubin AST ALT Alkaline Phosphatase Total Protein Albumin Triglycerides Arterial Blood Glucose Arterial Blood Ionized Calcium Digoxin Crossmatch 12/23/20 12/23/20 12/23/20 05:22 05:22 06:35 WBC 12.1 H RBC Hgb 11.0 L Hct 33.7 L MCV MCHC RDW 16.9 H Plt Count Lymph % (Auto) [place] % (Auto) Lymph # (Auto) [place] # (Auto) Seg Neutrophils % Seg Neuts % (Manual) 93.0 H Lymphocytes % (Manual) 1.0 L Monocytes % (Manual) Seg Neutrophils # Seg Neutrophils # Man 11.3 H Lymphocytes # (Manual) 0.1 L Monocytes # (Manual) PT INR ABG pH POC ABG pCO2 POC ABG pO2 ABG pO2 ABG HCO3 ABG O2 Saturation ABG Base Excess ABG Hemoglobin ABG Oxyhemoglobin ABG Sodium ABG Potassium ABG Chloride ABG Glucose Oxyhemoglobin Sodium Potassium 5.7 H D Chloride Carbon Dioxide BUN 73 H Creatinine 14.2 H Glucose POC Glucose Lactic Acid 2.30 H* Calcium 7.9 L Phosphorus Magnesium Total Bilirubin 1.40 H AST 119 H ALT 130 H Alkaline Phosphatase 183 H Total Protein 6.1 L Albumin 3.6 L Triglycerides Arterial Blood Glucose Arterial Blood Ionized Calcium Digoxin Crossmatch 12/23/20 12/23/20 12/23/20 11:40 13:53 16:47 WBC RBC Hgb 10.0 L Hct 30.4 L MCV MCHC RDW Plt Count Lymph % (Auto) [place] % (Auto) Lymph # (Auto) [place] # (Auto) Seg Neutrophils % Seg Neuts % (Manual) Lymphocytes % (Manual) Monocytes % (Manual) Seg Neutrophils # Seg Neutrophils # Man Lymphocytes # (Manual) Monocytes # (Manual) PT INR ABG pH POC ABG pCO2 POC ABG pO2 137.5 H ABG pO2 ABG HCO3 ABG O2 Saturation ABG Base Excess ABG Hemoglobin 9.7 L ABG Oxyhemoglobin ABG Sodium 134.1 L ABG Potassium 6.6 H ABG Chloride ABG Glucose 103 H Oxyhemoglobin Sodium Potassium Chloride Carbon Dioxide BUN Creatinine Glucose POC Glucose Lactic Acid Calcium Phosphorus Magnesium Total Bilirubin AST ALT Alkaline Phosphatase Total Protein Albumin Triglycerides Arterial Blood Glucose 103 H Arterial Blood Ionized Calcium 3.8 L Digoxin Crossmatch See Detail 12/23/20 12/23/20 12/24/20 20:35 20:40 01:20 WBC RBC Hgb Hct MCV MCHC RDW Plt Count Lymph % (Auto) [place] % (Auto) Lymph # (Auto) [place] # (Auto) Seg Neutrophils % Seg Neuts % (Manual) Lymphocytes % (Manual) Monocytes % (Manual) Seg Neutrophils # Seg Neutrophils # Man Lymphocytes # (Manual) Monocytes # (Manual) PT INR ABG pH 7.252 L POC ABG pCO2 POC ABG pO2 ABG pO2 50.1 L ABG HCO3 ABG O2 Saturation 81.1 L ABG Base Excess -5.9 L ABG Hemoglobin 12.1 L ABG Oxyhemoglobin ABG Sodium ABG Potassium ABG Chloride ABG Glucose Oxyhemoglobin 78.6 L Sodium 134 L Potassium 6.9 H* D 6.3 H* Chloride Carbon Dioxide 18 L 20 L BUN 87 H 91 H Creatinine 15.3 H 15.3 H Glucose 103 H POC Glucose Lactic Acid Calcium 6.9 L 7.5 L Phosphorus Magnesium Total Bilirubin AST ALT Alkaline Phosphatase Total Protein Albumin Triglycerides Arterial Blood Glucose Arterial Blood Ionized Calcium Digoxin Crossmatch 12/24/20 12/24/20 12/24/20 04:00 10:29 10:29 WBC RBC 3.49 L Hgb 10.5 L Hct 31.2 L MCV MCHC RDW 17.5 H Plt Count 124 L Lymph % (Auto) 3.7 L [place] % (Auto) 9.8 H Lymph # (Auto) 0.2 L [place] # (Auto) Seg Neutrophils % 85.9 H Seg Neuts % (Manual) Lymphocytes % (Manual) Monocytes % (Manual) Seg Neutrophils # Seg Neutrophils # Man Lymphocytes # (Manual) Monocytes # (Manual) PT INR ABG pH POC ABG pCO2 28.1 L POC ABG pO2 ABG pO2 ABG HCO3 ABG O2 Saturation ABG Base Excess ABG Hemoglobin ABG Oxyhemoglobin ABG Sodium 133.9 L ABG Potassium 5.3 H ABG Chloride 108.0 H ABG Glucose Oxyhemoglobin Sodium Potassium 5.6 H Chloride Carbon Dioxide 19 L BUN 99 H Creatinine 16.9 H Glucose 52 L POC Glucose Lactic Acid Calcium 7.6 L Phosphorus Magnesium Total Bilirubin 3.50 H AST 67 H ALT 71 H Alkaline Phosphatase Total Protein 3.5 L D Albumin 2.1 L Triglycerides Arterial Blood Glucose Arterial Blood Ionized Calcium 4.0 L Digoxin Crossmatch 12/25/20 12/25/20 12/25/20 03:33 04:00 04:00 WBC 3.8 L RBC 2.90 L Hgb 8.6 L Hct 25.7 L MCV MCHC RDW 16.7 H Plt Count 113 L Lymph % (Auto) [place] % (Auto) Lymph # (Auto) [place] # (Auto) Seg Neutrophils % Seg Neuts % (Manual) Lymphocytes % (Manual) Monocytes % (Manual) Seg Neutrophils # Seg Neutrophils # Man Lymphocytes # (Manual) Monocytes # (Manual) PT INR ABG pH 7.544 H POC ABG pCO2 28.2 L POC ABG pO2 62.8 L ABG pO2 ABG HCO3 ABG O2 Saturation ABG Base Excess ABG Hemoglobin 9.3 L ABG Oxyhemoglobin 93.0 L ABG Sodium 130.3 L ABG Potassium ABG Chloride ABG Glucose 97 H Oxyhemoglobin Sodium Potassium Chloride Carbon Dioxide BUN 62 H Creatinine 11.4 H Glucose POC Glucose Lactic Acid Calcium 7.7 L Phosphorus 5.00 H Magnesium Total Bilirubin AST ALT Alkaline Phosphatase Total Protein Albumin Triglycerides Arterial Blood Glucose 97 H Arterial Blood Ionized Calcium 3.9 L Digoxin Crossmatch 12/26/20 12/26/20 12/27/20 04:46 Unknown 03:40 WBC 4.1 L RBC 2.61 L Hgb 7.8 L Hct 23.4 L MCV MCHC RDW 17.1 H Plt Count 119 L Lymph % (Auto) 5.3 L [place] % (Auto) 10.6 H Lymph # (Auto) 0.2 L [place] # (Auto) Seg Neutrophils % 78.8 H Seg Neuts % (Manual) Lymphocytes % (Manual) Monocytes % (Manual) Seg Neutrophils # Seg Neutrophils # Man Lymphocytes # (Manual) Monocytes # (Manual) PT INR ABG pH 7.333 L 7.332 L POC ABG pCO2 POC ABG pO2 ABG pO2 ABG HCO3 26.9 H ABG O2 Saturation ABG Base Excess -2.4 L ABG Hemoglobin 6.8 L 7.2 L ABG Oxyhemoglobin ABG Sodium ABG Potassium ABG Chloride ABG Glucose Oxyhemoglobin 93.0 L 93.1 L Sodium Potassium Chloride Carbon Dioxide BUN Creatinine Glucose POC Glucose Lactic Acid Calcium Phosphorus Magnesium Total Bilirubin AST ALT Alkaline Phosphatase Total Protein Albumin Triglycerides Arterial Blood Glucose Arterial Blood Ionized Calcium Digoxin Crossmatch 12/27/20 12/27/20 12/27/20 06:40 06:40 11:22 WBC 4.4 L RBC 2.49 L Hgb 7.4 L Hct 22.4 L MCV MCHC RDW 17.1 H Plt Count 111 L Lymph % (Auto) 6.7 L [place] % (Auto) 12.6 H Lymph # (Auto) 0.3 L [place] # (Auto) Seg Neutrophils % 77.6 H Seg Neuts % (Manual) Lymphocytes % (Manual) Monocytes % (Manual) Seg Neutrophils # Seg Neutrophils # Man Lymphocytes # (Manual) Monocytes # (Manual) PT INR ABG pH POC ABG pCO2 POC ABG pO2 ABG pO2 ABG HCO3 ABG O2 Saturation ABG Base Excess ABG Hemoglobin ABG Oxyhemoglobin ABG Sodium ABG Potassium ABG Chloride ABG Glucose Oxyhemoglobin Sodium Potassium Chloride Carbon Dioxide BUN 64 H Creatinine 9.8 H Glucose 147 H POC Glucose 134 H Lactic Acid Calcium 8.3 L Phosphorus 5.00 H Magnesium Total Bilirubin 3.70 H AST 72 H ALT Alkaline Phosphatase 142 H Total Protein 5.1 L D Albumin 2.9 L Triglycerides Arterial Blood Glucose Arterial Blood Ionized Calcium Digoxin Crossmatch 12/27/20 12/27/20 12/28/20 17:29 23:31 03:09 WBC RBC Hgb Hct MCV MCHC RDW Plt Count Lymph % (Auto) [place] % (Auto) Lymph # (Auto) [place] # (Auto) Seg Neutrophils % Seg Neuts % (Manual) Lymphocytes % (Manual) Monocytes % (Manual) Seg Neutrophils # Seg Neutrophils # Man Lymphocytes # (Manual) Monocytes # (Manual) PT INR ABG pH 7.474 H POC ABG pCO2 POC ABG pO2 ABG pO2 ABG HCO3 ABG O2 Saturation ABG Base Excess ABG Hemoglobin 7.8 L ABG Oxyhemoglobin ABG Sodium ABG Potassium ABG Chloride ABG Glucose Oxyhemoglobin Sodium Potassium Chloride Carbon Dioxide BUN Creatinine Glucose POC Glucose 121 H 131 H Lactic Acid Calcium Phosphorus Magnesium Total Bilirubin AST ALT Alkaline Phosphatase Total Protein Albumin Triglycerides Arterial Blood Glucose Arterial Blood Ionized Calcium Digoxin Crossmatch 12/28/20 12/28/20 12/28/20 05:37 05:40 05:40 WBC 4.3 L RBC 2.40 L Hgb 7.2 L Hct 21.5 L MCV MCHC RDW 17.4 H Plt Count 112 L Lymph % (Auto) 6.5 L [place] % (Auto) 16.7 H Lymph # (Auto) 0.3 L [place] # (Auto) Seg Neutrophils % 71.1 H Seg Neuts % (Manual) Lymphocytes % (Manual) Monocytes % (Manual) Seg Neutrophils # Seg Neutrophils # Man Lymphocytes # (Manual) Monocytes # (Manual) PT INR ABG pH POC ABG pCO2 POC ABG pO2 ABG pO2 ABG HCO3 ABG O2 Saturation ABG Base Excess ABG Hemoglobin ABG Oxyhemoglobin ABG Sodium ABG Potassium ABG Chloride ABG Glucose Oxyhemoglobin Sodium Potassium Chloride Carbon Dioxide BUN 85 H Creatinine 11.5 H Glucose 132 H POC Glucose 121 H Lactic Acid Calcium 8.2 L Phosphorus Magnesium 2.40 H Total Bilirubin 3.80 H AST 70 H ALT Alkaline Phosphatase 176 H Total Protein 5.0 L Albumin 2.9 L Triglycerides Arterial Blood Glucose Arterial Blood Ionized Calcium Digoxin Crossmatch 12/28/20 12/28/20 12/28/20 11:34 15:00 17:35 WBC RBC Hgb Hct MCV MCHC RDW Plt Count Lymph % (Auto) [place] % (Auto) Lymph # (Auto) [place] # (Auto) Seg Neutrophils % Seg Neuts % (Manual) Lymphocytes % (Manual) Monocytes % (Manual) Seg Neutrophils # Seg Neutrophils # Man Lymphocytes # (Manual) Monocytes # (Manual) PT INR ABG pH 7.461 H POC ABG pCO2 POC ABG pO2 72.2 L ABG pO2 ABG HCO3 ABG O2 Saturation ABG Base Excess ABG Hemoglobin 8.2 L ABG Oxyhemoglobin 93.6 L ABG Sodium 134.1 L ABG Potassium 3.2 L ABG Chloride ABG Glucose 135 H Oxyhemoglobin Sodium Potassium Chloride Carbon Dioxide BUN Creatinine Glucose POC Glucose 137 H 144 H Lactic Acid Calcium Phosphorus Magnesium Total Bilirubin AST ALT Alkaline Phosphatase Total Protein Albumin Triglycerides Arterial Blood Glucose 135 H Arterial Blood Ionized Calcium 4.4 L Digoxin Crossmatch 12/28/20 12/28/20 12/29/20 19:44 Unknown 00:21 WBC RBC Hgb Hct MCV MCHC RDW Plt Count Lymph % (Auto) [place] % (Auto) Lymph # (Auto) [place] # (Auto) Seg Neutrophils % Seg Neuts % (Manual) Lymphocytes % (Manual) Monocytes % (Manual) Seg Neutrophils # Seg Neutrophils # Man Lymphocytes # (Manual) Monocytes # (Manual) PT INR ABG pH 7.474 H POC ABG pCO2 POC ABG pO2 ABG pO2 ABG HCO3 ABG O2 Saturation ABG Base Excess ABG Hemoglobin 7.8 L ABG Oxyhemoglobin ABG Sodium 133.2 L ABG Potassium ABG Chloride ABG Glucose 139 H Oxyhemoglobin Sodium 135 L Potassium Chloride 96.6 L Carbon Dioxide BUN 47 H Creatinine 7.4 H Glucose 130 H POC Glucose 142 H Lactic Acid Calcium 8.3 L Phosphorus Magnesium Total Bilirubin AST ALT Alkaline Phosphatase Total Protein Albumin Triglycerides Arterial Blood Glucose 139 H Arterial Blood Ionized Calcium 4.3 L Digoxin Crossmatch 12/29/20 12/29/20 12/29/20 05:16 05:16 05:26 WBC RBC 2.53 L Hgb 7.7 L Hct 22.8 L MCV MCHC RDW 17.0 H Plt Count 130 L Lymph % (Auto) [place] % (Auto) Lymph # (Auto) [place] # (Auto) Seg Neutrophils % Seg Neuts % (Manual) 79.0 H Lymphocytes % (Manual) 9.0 L Monocytes % (Manual) Seg Neutrophils # Seg Neutrophils # Man Lymphocytes # (Manual) 0.6 L Monocytes # (Manual) PT INR ABG pH POC ABG pCO2 POC ABG pO2 ABG pO2 ABG HCO3 ABG O2 Saturation ABG Base Excess ABG Hemoglobin ABG Oxyhemoglobin ABG Sodium ABG Potassium ABG Chloride ABG Glucose Oxyhemoglobin Sodium Potassium 3.4 L Chloride 96.6 L Carbon Dioxide BUN 59 H Creatinine 8.3 H Glucose 127 H POC Glucose 141 H Lactic Acid Calcium 8.2 L Phosphorus Magnesium Total Bilirubin 3.00 H AST 88 H ALT Alkaline Phosphatase 188 H Total Protein 5.1 L Albumin 2.8 L Triglycerides Arterial Blood Glucose Arterial Blood Ionized Calcium Digoxin Crossmatch 12/29/20 12/29/20 12/29/20 11:33 17:29 23:22 WBC RBC Hgb Hct MCV MCHC RDW Plt Count Lymph % (Auto) [place] % (Auto) Lymph # (Auto) [place] # (Auto) Seg Neutrophils % Seg Neuts % (Manual) Lymphocytes % (Manual) Monocytes % (Manual) Seg Neutrophils # Seg Neutrophils # Man Lymphocytes # (Manual) Monocytes # (Manual) PT INR ABG pH POC ABG pCO2 POC ABG pO2 ABG pO2 ABG HCO3 ABG O2 Saturation ABG Base Excess ABG Hemoglobin ABG Oxyhemoglobin ABG Sodium ABG Potassium ABG Chloride ABG Glucose Oxyhemoglobin Sodium Potassium Chloride Carbon Dioxide BUN Creatinine Glucose POC Glucose 144 H 130 H 117 H Lactic Acid Calcium Phosphorus Magnesium Total Bilirubin AST ALT Alkaline Phosphatase Total Protein Albumin Triglycerides Arterial Blood Glucose Arterial Blood Ionized Calcium Digoxin Crossmatch 12/30/20 12/30/20 12/30/20 05:23 08:15 09:00 WBC RBC Hgb Hct MCV MCHC RDW Plt Count Lymph % (Auto) [place] % (Auto) Lymph # (Auto) [place] # (Auto) Seg Neutrophils % Seg Neuts % (Manual) Lymphocytes % (Manual) Monocytes % (Manual) Seg Neutrophils # Seg Neutrophils # Man Lymphocytes # (Manual) Monocytes # (Manual) PT INR ABG pH POC ABG pCO2 POC ABG pO2 ABG pO2 ABG HCO3 ABG O2 Saturation ABG Base Excess ABG Hemoglobin ABG Oxyhemoglobin ABG Sodium ABG Potassium ABG Chloride ABG Glucose Oxyhemoglobin Sodium 135 L Potassium Chloride 95.9 L Carbon Dioxide BUN 85 H Creatinine 10.6 H Glucose 128 H POC Glucose 135 H 127 H Lactic Acid Calcium 8.3 L Phosphorus Magnesium Total Bilirubin 2.40 H AST 85 H ALT Alkaline Phosphatase 216 H Total Protein 5.3 L Albumin 2.6 L Triglycerides 155 H Arterial Blood Glucose Arterial Blood Ionized Calcium Digoxin Crossmatch 12/30/20 12/30/20 12/30/20 09:00 11:53 15:49 WBC RBC 2.61 L Hgb 7.8 L Hct 23.7 L MCV MCHC RDW 17.3 H Plt Count Lymph % (Auto) [place] % (Auto) Lymph # (Auto) [place] # (Auto) Seg Neutrophils % Seg Neuts % (Manual) Lymphocytes % (Manual) Monocytes % (Manual) Seg Neutrophils # Seg Neutrophils # Man Lymphocytes # (Manual) Monocytes # (Manual) PT INR ABG pH POC ABG pCO2 POC ABG pO2 ABG pO2 ABG HCO3 ABG O2 Saturation ABG Base Excess ABG Hemoglobin ABG Oxyhemoglobin ABG Sodium ABG Potassium ABG Chloride ABG Glucose Oxyhemoglobin Sodium Potassium Chloride Carbon Dioxide BUN Creatinine Glucose POC Glucose 155 H 146 H Lactic Acid Calcium Phosphorus Magnesium Total Bilirubin AST ALT Alkaline Phosphatase Total Protein Albumin Triglycerides Arterial Blood Glucose Arterial Blood Ionized Calcium Digoxin Crossmatch 12/30/20 12/30/20 12/31/20 17:53 23:45 03:56 WBC RBC Hgb Hct MCV MCHC RDW Plt Count Lymph % (Auto) [place] % (Auto) Lymph # (Auto) [place] # (Auto) Seg Neutrophils % Seg Neuts % (Manual) Lymphocytes % (Manual) Monocytes % (Manual) Seg Neutrophils # Seg Neutrophils # Man Lymphocytes # (Manual) Monocytes # (Manual) PT INR ABG pH POC ABG pCO2 POC ABG pO2 49.4 L ABG pO2 ABG HCO3 ABG O2 Saturation ABG Base Excess ABG Hemoglobin 10.3 L ABG Oxyhemoglobin 84.2 L ABG Sodium 133.1 L ABG Potassium ABG Chloride ABG Glucose 173 H Oxyhemoglobin Sodium Potassium Chloride Carbon Dioxide BUN Creatinine Glucose POC Glucose 139 H 173 H Lactic Acid Calcium Phosphorus Magnesium Total Bilirubin AST ALT Alkaline Phosphatase Total Protein Albumin Triglycerides Arterial Blood Glucose 173 H Arterial Blood Ionized Calcium Digoxin Crossmatch 12/31/20 12/31/20 12/31/20 05:07 06:51 06:51 WBC 20.3 H RBC 3.32 L Hgb 9.8 L Hct 30.3 L D MCV MCHC RDW 17.3 H Plt Count Lymph % (Auto) [place] % (Auto) Lymph # (Auto) [place] # (Auto) Seg Neutrophils % Seg Neuts % (Manual) 87.0 H Lymphocytes % (Manual) 10.0 L Monocytes % (Manual) Seg Neutrophils # Seg Neutrophils # Man 17.7 H Lymphocytes # (Manual) Monocytes # (Manual) PT INR ABG pH POC ABG pCO2 POC ABG pO2 ABG pO2 ABG HCO3 ABG O2 Saturation ABG Base Excess ABG Hemoglobin ABG Oxyhemoglobin ABG Sodium ABG Potassium ABG Chloride ABG Glucose Oxyhemoglobin Sodium Potassium 5.2 H D Chloride Carbon Dioxide BUN 62 H Creatinine 8.4 H Glucose 116 H POC Glucose 120 H Lactic Acid Calcium Phosphorus Magnesium 1.60 L Total Bilirubin AST ALT Alkaline Phosphatase Total Protein Albumin Triglycerides Arterial Blood Glucose Arterial Blood Ionized Calcium Digoxin Crossmatch 12/31/20 12/31/20 12/31/20 09:38 12:19 12:22 WBC RBC Hgb Hct MCV MCHC RDW Plt Count Lymph % (Auto) [place] % (Auto) Lymph # (Auto) [place] # (Auto) Seg Neutrophils % Seg Neuts % (Manual) Lymphocytes % (Manual) Monocytes % (Manual) Seg Neutrophils # Seg Neutrophils # Man Lymphocytes # (Manual) Monocytes # (Manual) PT INR ABG pH POC ABG pCO2 POC ABG pO2 ABG pO2 354.0 H ABG HCO3 ABG O2 Saturation 99.6 H ABG Base Excess ABG Hemoglobin 9.1 L ABG Oxyhemoglobin ABG Sodium ABG Potassium ABG Chloride ABG Glucose Oxyhemoglobin Sodium Potassium 5.2 H Chloride Carbon Dioxide BUN Creatinine Glucose POC Glucose 132 H Lactic Acid Calcium Phosphorus Magnesium Total Bilirubin AST ALT Alkaline Phosphatase Total Protein Albumin Triglycerides Arterial Blood Glucose Arterial Blood Ionized Calcium Digoxin Crossmatch 12/31/20 01/01/21 01/01/21 23:23 03:03 05:04 WBC RBC Hgb Hct MCV MCHC RDW Plt Count Lymph % (Auto) [place] % (Auto) Lymph # (Auto) [place] # (Auto) Seg Neutrophils % Seg Neuts % (Manual) Lymphocytes % (Manual) Monocytes % (Manual) Seg Neutrophils # Seg Neutrophils # Man Lymphocytes # (Manual) Monocytes # (Manual) PT INR ABG pH POC ABG pCO2 POC ABG pO2 79.6 L ABG pO2 ABG HCO3 ABG O2 Saturation ABG Base Excess ABG Hemoglobin 9.2 L ABG Oxyhemoglobin ABG Sodium 131.6 L ABG Potassium 5.8 H ABG Chloride ABG Glucose 177 H Oxyhemoglobin Sodium Potassium Chloride Carbon Dioxide BUN Creatinine Glucose POC Glucose 174 H 167 H Lactic Acid Calcium Phosphorus Magnesium Total Bilirubin AST ALT Alkaline Phosphatase Total Protein Albumin Triglycerides Arterial Blood Glucose 177 H Arterial Blood Ionized Calcium Digoxin Crossmatch 01/01/21 01/01/21 01/01/21 07:31 07:31 11:31 WBC 26.1 H RBC 2.95 L Hgb 8.6 L Hct 27.1 L MCV MCHC RDW 18.2 H Plt Count Lymph % (Auto) [place] % (Auto) Lymph # (Auto) [place] # (Auto) Seg Neutrophils % Seg Neuts % (Manual) 96.0 H Lymphocytes % (Manual) 4.0 L Monocytes % (Manual) Seg Neutrophils # Seg Neutrophils # Man 25.1 H Lymphocytes # (Manual) 1.0 L Monocytes # (Manual) PT INR ABG pH POC ABG pCO2 POC ABG pO2 ABG pO2 ABG HCO3 ABG O2 Saturation ABG Base Excess ABG Hemoglobin ABG Oxyhemoglobin ABG Sodium ABG Potassium ABG Chloride ABG Glucose Oxyhemoglobin Sodium Potassium 6.0 H Chloride Carbon Dioxide 21 L BUN 89 H Creatinine 10.5 H Glucose 179 H POC Glucose Lactic Acid Calcium Phosphorus Magnesium Total Bilirubin AST ALT Alkaline Phosphatase Total Protein Albumin Triglycerides Arterial Blood Glucose Arterial Blood Ionized Calcium Digoxin Crossmatch See Detail 01/01/21 01/01/21 01/01/21 11:51 12:45 16:52 WBC RBC Hgb Hct MCV MCHC RDW Plt Count Lymph % (Auto) [place] % (Auto) Lymph # (Auto) [place] # (Auto) Seg Neutrophils % Seg Neuts % (Manual) Lymphocytes % (Manual) Monocytes % (Manual) Seg Neutrophils # Seg Neutrophils # Man Lymphocytes # (Manual) Monocytes # (Manual) PT 16.9 H INR 1.39 H ABG pH POC ABG pCO2 POC ABG pO2 ABG pO2 ABG HCO3 ABG O2 Saturation ABG Base Excess ABG Hemoglobin ABG Oxyhemoglobin ABG Sodium ABG Potassium ABG Chloride ABG Glucose Oxyhemoglobin Sodium Potassium Chloride Carbon Dioxide BUN Creatinine Glucose POC Glucose 157 H 177 H Lactic Acid Calcium Phosphorus Magnesium Total Bilirubin AST ALT Alkaline Phosphatase Total Protein Albumin Triglycerides Arterial Blood Glucose Arterial Blood Ionized Calcium Digoxin Crossmatch 01/01/21 01/01/21 01/01/21 17:58 17:58 20:12 WBC 26.9 H RBC 3.14 L Hgb 9.3 L Hct 29.6 L MCV MCHC RDW 17.5 H Plt Count Lymph % (Auto) [place] % (Auto) Lymph # (Auto) [place] # (Auto) Seg Neutrophils % Seg Neuts % (Manual) 84.0 H Lymphocytes % (Manual) 4.0 L Monocytes % (Manual) 12.0 H Seg Neutrophils # Seg Neutrophils # Man 22.6 H Lymphocytes # (Manual) 1.1 L Monocytes # (Manual) 3.2 H PT INR ABG pH POC ABG pCO2 POC ABG pO2 ABG pO2 ABG HCO3 ABG O2 Saturation ABG Base Excess ABG Hemoglobin ABG Oxyhemoglobin ABG Sodium ABG Potassium ABG Chloride ABG Glucose Oxyhemoglobin Sodium 136 L Potassium 6.2 H* Chloride Carbon Dioxide 21 L BUN 92 H Creatinine 10.8 H Glucose 171 H POC Glucose 288 H Lactic Acid Calcium Phosphorus Magnesium Total Bilirubin 2.10 H AST 223 H ALT 100 H Alkaline Phosphatase 206 H Total Protein 4.8 L Albumin 1.9 L Triglycerides Arterial Blood Glucose Arterial Blood Ionized Calcium Digoxin Crossmatch 01/02/21 01/02/21 01/02/21 00:12 00:45 03:05 WBC RBC Hgb Hct MCV MCHC RDW Plt Count Lymph % (Auto) [place] % (Auto) Lymph # (Auto) [place] # (Auto) Seg Neutrophils % Seg Neuts % (Manual) Lymphocytes % (Manual) Monocytes % (Manual) Seg Neutrophils # Seg Neutrophils # Man Lymphocytes # (Manual) Monocytes # (Manual) PT INR ABG pH POC ABG pCO2 POC ABG pO2 81.8 L ABG pO2 ABG HCO3 ABG O2 Saturation ABG Base Excess ABG Hemoglobin 8.0 L ABG Oxyhemoglobin ABG Sodium 129.8 L ABG Potassium 5.4 H ABG Chloride ABG Glucose 257 H Oxyhemoglobin Sodium 136 L Potassium 5.8 H Chloride 96.6 L Carbon Dioxide BUN 95 H Creatinine 11.2 H Glucose 238 H POC Glucose 223 H Lactic Acid Calcium Phosphorus Magnesium Total Bilirubin AST ALT Alkaline Phosphatase Total Protein Albumin Triglycerides Arterial Blood Glucose 257 H Arterial Blood Ionized Calcium 4.0 L Digoxin Crossmatch 01/02/21 01/02/21 01/02/21 06:25 08:00 08:00 WBC 17.5 H RBC 2.31 L Hgb 6.7 L Hct 22.1 L D MCV 96 H MCHC 30 L RDW 18.4 H Plt Count Lymph % (Auto) [place] % (Auto) Lymph # (Auto) [place] # (Auto) Seg Neutrophils % Seg Neuts % (Manual) Lymphocytes % (Manual) Monocytes % (Manual) Seg Neutrophils # Seg Neutrophils # Man Lymphocytes # (Manual) Monocytes # (Manual) PT INR ABG pH POC ABG pCO2 POC ABG pO2 ABG pO2 ABG HCO3 ABG O2 Saturation ABG Base Excess ABG Hemoglobin ABG Oxyhemoglobin ABG Sodium ABG Potassium ABG Chloride ABG Glucose Oxyhemoglobin Sodium 134 L Potassium 5.3 H Chloride 92.9 L Carbon Dioxide BUN 101 H Creatinine 10.9 H Glucose 560 H* POC Glucose 239 H Lactic Acid Calcium 7.6 L Phosphorus 6.50 H Magnesium Total Bilirubin AST ALT Alkaline Phosphatase Total Protein Albumin Triglycerides Arterial Blood Glucose Arterial Blood Ionized Calcium Digoxin Crossmatch 01/02/21 01/02/21 01/02/21 11:26 15:00 17:57 WBC RBC Hgb Hct MCV MCHC RDW Plt Count Lymph % (Auto) [place] % (Auto) Lymph # (Auto) [place] # (Auto) Seg Neutrophils % Seg Neuts % (Manual) Lymphocytes % (Manual) Monocytes % (Manual) Seg Neutrophils # Seg Neutrophils # Man Lymphocytes # (Manual) Monocytes # (Manual) PT INR ABG pH POC ABG pCO2 POC ABG pO2 ABG pO2 ABG HCO3 ABG O2 Saturation ABG Base Excess ABG Hemoglobin ABG Oxyhemoglobin ABG Sodium ABG Potassium ABG Chloride ABG Glucose Oxyhemoglobin Sodium Potassium Chloride Carbon Dioxide BUN Creatinine Glucose 241 H POC Glucose 205 H 272 H Lactic Acid Calcium Phosphorus Magnesium Total Bilirubin AST ALT Alkaline Phosphatase Total Protein Albumin Triglycerides Arterial Blood Glucose Arterial Blood Ionized Calcium Digoxin Crossmatch 01/02/21 01/02/21 01/03/21 23:25 23:43 03:45 WBC RBC Hgb Hct MCV MCHC RDW Plt Count Lymph % (Auto) [place] % (Auto) Lymph # (Auto) [place] # (Auto) Seg Neutrophils % Seg Neuts % (Manual) Lymphocytes % (Manual) Monocytes % (Manual) Seg Neutrophils # Seg Neutrophils # Man Lymphocytes # (Manual) Monocytes # (Manual) PT INR ABG pH POC ABG pCO2 48.3 H POC ABG pO2 134.4 H 79.7 L ABG pO2 ABG HCO3 ABG O2 Saturation ABG Base Excess ABG Hemoglobin 7.7 L 8.6 L ABG Oxyhemoglobin ABG Sodium 131.8 L 130.4 L ABG Potassium ABG Chloride 97.0 L ABG Glucose 218 H 238 H Oxyhemoglobin Sodium Potassium Chloride Carbon Dioxide BUN Creatinine Glucose POC Glucose 218 H Lactic Acid Calcium Phosphorus Magnesium Total Bilirubin AST ALT Alkaline Phosphatase Total Protein Albumin Triglycerides Arterial Blood Glucose 218 H 238 H Arterial Blood Ionized Calcium 4.1 L 4.0 L Digoxin Crossmatch 01/03/21 01/03/21 01/03/21 04:37 04:37 05:39 WBC 15.2 H RBC 2.38 L Hgb 7.3 L Hct 21.6 L MCV MCHC RDW 16.6 H Plt Count Lymph % (Auto) [place] % (Auto) Lymph # (Auto) [place] # (Auto) Seg Neutrophils % Seg Neuts % (Manual) Lymphocytes % (Manual) Monocytes % (Manual) Seg Neutrophils # Seg Neutrophils # Man Lymphocytes # (Manual) Monocytes # (Manual) PT INR ABG pH POC ABG pCO2 POC ABG pO2 ABG pO2 ABG HCO3 ABG O2 Saturation ABG Base Excess ABG Hemoglobin ABG Oxyhemoglobin ABG Sodium ABG Potassium ABG Chloride ABG Glucose Oxyhemoglobin Sodium 136 L Potassium Chloride 94.5 L Carbon Dioxide BUN 69 H Creatinine 8.0 H Glucose 219 H POC Glucose 222 H Lactic Acid Calcium 7.8 L Phosphorus 4.80 H D Magnesium Total Bilirubin AST ALT Alkaline Phosphatase Total Protein Albumin Triglycerides Arterial Blood Glucose Arterial Blood Ionized Calcium Digoxin Crossmatch 01/03/21 01/03/21 01/03/21 11:29 18:49 23:37 WBC RBC Hgb Hct MCV MCHC RDW Plt Count Lymph % (Auto) [place] % (Auto) Lymph # (Auto) [place] # (Auto) Seg Neutrophils % Seg Neuts % (Manual) Lymphocytes % (Manual) Monocytes % (Manual) Seg Neutrophils # Seg Neutrophils # Man Lymphocytes # (Manual) Monocytes # (Manual) PT INR ABG pH POC ABG pCO2 POC ABG pO2 ABG pO2 ABG HCO3 ABG O2 Saturation ABG Base Excess ABG Hemoglobin ABG Oxyhemoglobin ABG Sodium ABG Potassium ABG Chloride ABG Glucose Oxyhemoglobin Sodium Potassium Chloride Carbon Dioxide BUN Creatinine Glucose POC Glucose 232 H 129 H 140 H Lactic Acid Calcium Phosphorus Magnesium Total Bilirubin AST ALT Alkaline Phosphatase Total Protein Albumin Triglycerides Arterial Blood Glucose Arterial Blood Ionized Calcium Digoxin Crossmatch 01/04/21 01/04/21 01/04/21 03:22 04:38 04:38 WBC 11.1 H RBC 2.89 L Hgb 8.9 L Hct 26.2 L MCV MCHC RDW 16.1 H Plt Count Lymph % (Auto) [place] % (Auto) Lymph # (Auto) [place] # (Auto) Seg Neutrophils % Seg Neuts % (Manual) Lymphocytes % (Manual) Monocytes % (Manual) Seg Neutrophils # Seg Neutrophils # Man Lymphocytes # (Manual) Monocytes # (Manual) PT INR ABG pH POC ABG pCO2 POC ABG pO2 82.3 L ABG pO2 ABG HCO3 ABG O2 Saturation ABG Base Excess ABG Hemoglobin 8.9 L ABG Oxyhemoglobin ABG Sodium 130.5 L ABG Potassium ABG Chloride ABG Glucose 124 H Oxyhemoglobin Sodium Potassium Chloride 95.5 L Carbon Dioxide BUN 87 H Creatinine 9.7 H Glucose 118 H POC Glucose Lactic Acid Calcium 7.7 L Phosphorus Magnesium Total Bilirubin AST ALT Alkaline Phosphatase Total Protein Albumin Triglycerides Arterial Blood Glucose 124 H Arterial Blood Ionized Calcium 3.5 L Digoxin Crossmatch 01/04/21 01/04/21 01/04/21 05:39 12:04 18:04 WBC RBC Hgb Hct MCV MCHC RDW Plt Count Lymph % (Auto) [place] % (Auto) Lymph # (Auto) [place] # (Auto) Seg Neutrophils % Seg Neuts % (Manual) Lymphocytes % (Manual) Monocytes % (Manual) Seg Neutrophils # Seg Neutrophils # Man Lymphocytes # (Manual) Monocytes # (Manual) PT INR ABG pH POC ABG pCO2 POC ABG pO2 ABG pO2 ABG HCO3 ABG O2 Saturation ABG Base Excess ABG Hemoglobin ABG Oxyhemoglobin ABG Sodium ABG Potassium ABG Chloride ABG Glucose Oxyhemoglobin Sodium Potassium Chloride Carbon Dioxide BUN Creatinine Glucose POC Glucose 134 H 125 H 131 H Lactic Acid Calcium Phosphorus Magnesium Total Bilirubin AST ALT Alkaline Phosphatase Total Protein Albumin Triglycerides Arterial Blood Glucose Arterial Blood Ionized Calcium Digoxin Crossmatch 01/04/21 01/05/21 01/05/21 23:41 03:23 04:49 WBC RBC Hgb Hct MCV MCHC RDW Plt Count Lymph % (Auto) [place] % (Auto) Lymph # (Auto) [place] # (Auto) Seg Neutrophils % Seg Neuts % (Manual) Lymphocytes % (Manual) Monocytes % (Manual) Seg Neutrophils # Seg Neutrophils # Man Lymphocytes # (Manual) Monocytes # (Manual) PT INR ABG pH POC ABG pCO2 POC ABG pO2 62.8 L ABG pO2 ABG HCO3 ABG O2 Saturation ABG Base Excess ABG Hemoglobin 9.5 L ABG Oxyhemoglobin 92.0 L ABG Sodium 130.1 L ABG Potassium ABG Chloride ABG Glucose 148 H Oxyhemoglobin Sodium Potassium Chloride 96.9 L Carbon Dioxide BUN 57 H Creatinine 6.7 H Glucose 135 H POC Glucose 132 H Lactic Acid Calcium 8.0 L Phosphorus Magnesium Total Bilirubin AST ALT Alkaline Phosphatase Total Protein Albumin Triglycerides Arterial Blood Glucose 148 H Arterial Blood Ionized Calcium 4.1 L Digoxin Crossmatch 01/05/21 01/05/21 01/05/21 05:04 11:48 12:39 WBC RBC 3.03 L Hgb 9.3 L Hct 27.6 L MCV MCHC RDW 16.5 H Plt Count Lymph % (Auto) [place] % (Auto) Lymph # (Auto) [place] # (Auto) Seg Neutrophils % Seg Neuts % (Manual) Lymphocytes % (Manual) Monocytes % (Manual) Seg Neutrophils # Seg Neutrophils # Man Lymphocytes # (Manual) Monocytes # (Manual) PT INR ABG pH POC ABG pCO2 POC ABG pO2 ABG pO2 ABG HCO3 ABG O2 Saturation ABG Base Excess ABG Hemoglobin ABG Oxyhemoglobin ABG Sodium ABG Potassium ABG Chloride ABG Glucose Oxyhemoglobin Sodium Potassium Chloride Carbon Dioxide BUN Creatinine Glucose POC Glucose 147 H 162 H Lactic Acid Calcium Phosphorus Magnesium Total Bilirubin AST ALT Alkaline Phosphatase Total Protein Albumin Triglycerides Arterial Blood Glucose Arterial Blood Ionized Calcium Digoxin Crossmatch 01/05/21 01/05/21 01/06/21 17:50 23:32 04:15 WBC RBC Hgb Hct MCV MCHC RDW Plt Count Lymph % (Auto) [place] % (Auto) Lymph # (Auto) [place] # (Auto) Seg Neutrophils % Seg Neuts % (Manual) Lymphocytes % (Manual) Monocytes % (Manual) Seg Neutrophils # Seg Neutrophils # Man Lymphocytes # (Manual) Monocytes # (Manual) PT INR ABG pH POC ABG pCO2 POC ABG pO2 ABG pO2 191.0 H ABG HCO3 ABG O2 Saturation 99.2 H ABG Base Excess ABG Hemoglobin 9.0 L ABG Oxyhemoglobin ABG Sodium ABG Potassium ABG Chloride ABG Glucose Oxyhemoglobin Sodium Potassium Chloride Carbon Dioxide BUN Creatinine Glucose POC Glucose 155 H 115 H Lactic Acid Calcium Phosphorus Magnesium Total Bilirubin AST ALT Alkaline Phosphatase Total Protein Albumin Triglycerides Arterial Blood Glucose Arterial Blood Ionized Calcium Digoxin Crossmatch 01/06/21 01/06/21 01/06/21 04:45 05:56 07:03 WBC RBC 2.95 L Hgb 9.1 L Hct 26.8 L MCV MCHC RDW 16.8 H Plt Count Lymph % (Auto) [place] % (Auto) Lymph # (Auto) [place] # (Auto) Seg Neutrophils % Seg Neuts % (Manual) Lymphocytes % (Manual) Monocytes % (Manual) Seg Neutrophils # Seg Neutrophils # Man Lymphocytes # (Manual) Monocytes # (Manual) PT INR ABG pH POC ABG pCO2 POC ABG pO2 ABG pO2 ABG HCO3 ABG O2 Saturation ABG Base Excess ABG Hemoglobin ABG Oxyhemoglobin ABG Sodium ABG Potassium ABG Chloride ABG Glucose Oxyhemoglobin Sodium 135 L Potassium Chloride 95.9 L Carbon Dioxide BUN 82 H Creatinine 8.7 H Glucose 127 H POC Glucose 136 H Lactic Acid Calcium 8.3 L Phosphorus Magnesium Total Bilirubin AST ALT Alkaline Phosphatase Total Protein Albumin Triglycerides Arterial Blood Glucose Arterial Blood Ionized Calcium Digoxin Crossmatch 01/06/21 01/06/21 01/06/21 07:10 11:04 13:38 WBC RBC Hgb Hct MCV MCHC RDW Plt Count Lymph % (Auto) [place] % (Auto) Lymph # (Auto) [place] # (Auto) Seg Neutrophils % Seg Neuts % (Manual) Lymphocytes % (Manual) Monocytes % (Manual) Seg Neutrophils # Seg Neutrophils # Man Lymphocytes # (Manual) Monocytes # (Manual) PT INR ABG pH POC ABG pCO2 POC ABG pO2 ABG pO2 ABG HCO3 ABG O2 Saturation ABG Base Excess ABG Hemoglobin ABG Oxyhemoglobin ABG Sodium ABG Potassium ABG Chloride ABG Glucose Oxyhemoglobin Sodium Potassium Chloride Carbon Dioxide BUN Creatinine Glucose POC Glucose 178 H 155 H Lactic Acid Calcium Phosphorus Magnesium Total Bilirubin AST ALT Alkaline Phosphatase Total Protein Albumin Triglycerides Arterial Blood Glucose Arterial Blood Ionized Calcium Digoxin Crossmatch See Detail 01/06/21 01/06/21 01/07/21 17:35 22:21 03:07 WBC RBC Hgb Hct MCV MCHC RDW Plt Count Lymph % (Auto) [place] % (Auto) Lymph # (Auto) [place] # (Auto) Seg Neutrophils % Seg Neuts % (Manual) Lymphocytes % (Manual) Monocytes % (Manual) Seg Neutrophils # Seg Neutrophils # Man Lymphocytes # (Manual) Monocytes # (Manual) PT INR ABG pH POC ABG pCO2 POC ABG pO2 ABG pO2 ABG HCO3 ABG O2 Saturation ABG Base Excess ABG Hemoglobin 11.9 L ABG Oxyhemoglobin ABG Sodium 135.6 L ABG Potassium ABG Chloride ABG Glucose 181 H Oxyhemoglobin Sodium Potassium Chloride Carbon Dioxide BUN Creatinine Glucose POC Glucose 138 H 202 H Lactic Acid Calcium Phosphorus Magnesium Total Bilirubin AST ALT Alkaline Phosphatase Total Protein Albumin Triglycerides Arterial Blood Glucose 181 H Arterial Blood Ionized Calcium 4.3 L Digoxin Crossmatch 01/07/21 01/07/21 01/07/21 04:50 05:21 08:37 WBC 12.4 H RBC Hgb 11.1 L Hct 33.3 L D MCV MCHC RDW 17.0 H Plt Count Lymph % (Auto) 3.2 L [place] % (Auto) 9.4 H Lymph # (Auto) 0.4 L [place] # (Auto) 1.2 H Seg Neutrophils % 86.6 H Seg Neuts % (Manual) Lymphocytes % (Manual) Monocytes % (Manual) Seg Neutrophils # 10.7 H Seg Neutrophils # Man Lymphocytes # (Manual) Monocytes # (Manual) PT INR ABG pH POC ABG pCO2 POC ABG pO2 ABG pO2 ABG HCO3 ABG O2 Saturation ABG Base Excess ABG Hemoglobin ABG Oxyhemoglobin ABG Sodium ABG Potassium ABG Chloride ABG Glucose Oxyhemoglobin Sodium Potassium Chloride Carbon Dioxide BUN 60 H Creatinine 6.3 H Glucose 154 H POC Glucose 177 H Lactic Acid Calcium 8.3 L Phosphorus Magnesium Total Bilirubin AST ALT Alkaline Phosphatase Total Protein Albumin Triglycerides Arterial Blood Glucose Arterial Blood Ionized Calcium Digoxin Crossmatch 01/07/21 01/07/2121 11:21 12:19 17:11 WBC RBC Hgb Hct MCV MCHC RDW Plt Count Lymph % (Auto) [place] % (Auto) Lymph # (Auto) [place] # (Auto) Seg Neutrophils % Seg Neuts % (Manual) Lymphocytes % (Manual) Monocytes % (Manual) Seg Neutrophils # Seg Neutrophils # Man Lymphocytes # (Manual) Monocytes # (Manual) PT INR ABG pH POC ABG pCO2 POC ABG pO2 ABG pO2 ABG HCO3 ABG O2 Saturation ABG Base Excess ABG Hemoglobin ABG Oxyhemoglobin ABG Sodium ABG Potassium ABG Chloride ABG Glucose Oxyhemoglobin Sodium Potassium Chloride Carbon Dioxide BUN Creatinine Glucose POC Glucose 144 H 137 H 119 H Lactic Acid Calcium Phosphorus Magnesium Total Bilirubin AST ALT Alkaline Phosphatase Total Protein Albumin Triglycerides Arterial Blood Glucose Arterial Blood Ionized Calcium Digoxin Crossmatch 01/07/21 01/07/21 01/08/21 17:14 23:39 04:34 WBC RBC Hgb Hct MCV MCHC RDW Plt Count Lymph % (Auto) [place] % (Auto) Lymph # (Auto) [place] # (Auto) Seg Neutrophils % Seg Neuts % (Manual) Lymphocytes % (Manual) Monocytes % (Manual) Seg Neutrophils # Seg Neutrophils # Man Lymphocytes # (Manual) Monocytes # (Manual) PT INR ABG pH 7.345 L POC ABG pCO2 POC ABG pO2 ABG pO2 67.4 L ABG HCO3 ABG O2 Saturation 94.3 L ABG Base Excess -3.9 L ABG Hemoglobin 8.9 L ABG Oxyhemoglobin ABG Sodium ABG Potassium ABG Chloride ABG Glucose Oxyhemoglobin 92.3 L Sodium Potassium Chloride Carbon Dioxide 20 L BUN 93 H Creatinine 8.8 H Glucose 120 H POC Glucose 129 H Lactic Acid Calcium Phosphorus Magnesium Total Bilirubin AST ALT Alkaline Phosphatase 133 H Total Protein 5.4 L Albumin 1.9 L Triglycerides Arterial Blood Glucose Arterial Blood Ionized Calcium Digoxin Crossmatch 01/08/21 01/08/21 01/08/21 05:26 11:38 17:19 WBC RBC Hgb Hct MCV MCHC RDW Plt Count Lymph % (Auto) [place] % (Auto) Lymph # (Auto) [place] # (Auto) Seg Neutrophils % Seg Neuts % (Manual) Lymphocytes % (Manual) Monocytes % (Manual) Seg Neutrophils # Seg Neutrophils # Man Lymphocytes # (Manual) Monocytes # (Manual) PT INR ABG pH POC ABG pCO2 POC ABG pO2 ABG pO2 ABG HCO3 ABG O2 Saturation ABG Base Excess ABG Hemoglobin ABG Oxyhemoglobin ABG Sodium ABG Potassium ABG Chloride ABG Glucose Oxyhemoglobin Sodium Potassium Chloride Carbon Dioxide BUN Creatinine Glucose POC Glucose 125 H 146 H 136 H Lactic Acid Calcium Phosphorus Magnesium Total Bilirubin AST ALT Alkaline Phosphatase Total Protein Albumin Triglycerides Arterial Blood Glucose Arterial Blood Ionized Calcium Digoxin Crossmatch 01/08/21 01/09/21 01/09/21 23:52 05:13 05:21 WBC RBC Hgb Hct MCV MCHC RDW Plt Count Lymph % (Auto) [place] % (Auto) Lymph # (Auto) [place] # (Auto) Seg Neutrophils % Seg Neuts % (Manual) Lymphocytes % (Manual) Monocytes % (Manual) Seg Neutrophils # Seg Neutrophils # Man Lymphocytes # (Manual) Monocytes # (Manual) PT INR ABG pH POC ABG pCO2 POC ABG pO2 ABG pO2 ABG HCO3 ABG O2 Saturation ABG Base Excess ABG Hemoglobin ABG Oxyhemoglobin ABG Sodium ABG Potassium ABG Chloride ABG Glucose Oxyhemoglobin Sodium Potassium Chloride Carbon Dioxide 16 L BUN 123 H Creatinine 10.8 H Glucose 145 H POC Glucose 143 H 144 H Lactic Acid Calcium Phosphorus 5.00 H D Magnesium 2.40 H Total Bilirubin AST ALT Alkaline Phosphatase Total Protein Albumin Triglycerides Arterial Blood Glucose Arterial Blood Ionized Calcium Digoxin Crossmatch 01/09/21 01/09/21 01/09/21 12:08 17:20 23:56 WBC RBC Hgb Hct MCV MCHC RDW Plt Count Lymph % (Auto) [place] % (Auto) Lymph # (Auto) [place] # (Auto) Seg Neutrophils % Seg Neuts % (Manual) Lymphocytes % (Manual) Monocytes % (Manual) Seg Neutrophils # Seg Neutrophils # Man Lymphocytes # (Manual) Monocytes # (Manual) PT INR ABG pH POC ABG pCO2 POC ABG pO2 ABG pO2 ABG HCO3 ABG O2 Saturation ABG Base Excess ABG Hemoglobin ABG Oxyhemoglobin ABG Sodium ABG Potassium ABG Chloride ABG Glucose Oxyhemoglobin Sodium Potassium Chloride Carbon Dioxide BUN Creatinine Glucose POC Glucose 153 H 160 H 158 H Lactic Acid Calcium Phosphorus Magnesium Total Bilirubin AST ALT Alkaline Phosphatase Total Protein Albumin Triglycerides Arterial Blood Glucose Arterial Blood Ionized Calcium Digoxin Crossmatch 01/10/21 01/10/21 01/10/21 04:52 05:44 07:41 WBC RBC Hgb Hct MCV MCHC RDW Plt Count Lymph % (Auto) [place] % (Auto) Lymph # (Auto) [place] # (Auto) Seg Neutrophils % Seg Neuts % (Manual) Lymphocytes % (Manual) Monocytes % (Manual) Seg Neutrophils # Seg Neutrophils # Man Lymphocytes # (Manual) Monocytes # (Manual) PT INR ABG pH POC ABG pCO2 POC ABG pO2 ABG pO2 ABG HCO3 ABG O2 Saturation ABG Base Excess ABG Hemoglobin ABG Oxyhemoglobin ABG Sodium ABG Potassium ABG Chloride ABG Glucose Oxyhemoglobin Sodium 135 L Potassium 3.5 L D Chloride 95.0 L Carbon Dioxide 21 L BUN 93 H Creatinine 8.3 H Glucose 127 H POC Glucose 135 H 157 H Lactic Acid Calcium Phosphorus Magnesium Total Bilirubin AST ALT Alkaline Phosphatase Total Protein Albumin Triglycerides Arterial Blood Glucose Arterial Blood Ionized Calcium Digoxin Crossmatch 01/10/21 01/10/21 01/10/21 09:26 12:03 17:44 WBC 18.2 H RBC 3.14 L Hgb 9.7 L Hct 28.2 L MCV MCHC RDW 16.5 H Plt Count Lymph % (Auto) [place] % (Auto) Lymph # (Auto) [place] # (Auto) Seg Neutrophils % Seg Neuts % (Manual) 95.0 H Lymphocytes % (Manual) 3.0 L Monocytes % (Manual) Seg Neutrophils # Seg Neutrophils # Man 17.3 H Lymphocytes # (Manual) 0.5 L Monocytes # (Manual) PT INR ABG pH POC ABG pCO2 POC ABG pO2 ABG pO2 ABG HCO3 ABG O2 Saturation ABG Base Excess ABG Hemoglobin ABG Oxyhemoglobin ABG Sodium ABG Potassium ABG Chloride ABG Glucose Oxyhemoglobin Sodium Potassium Chloride Carbon Dioxide BUN Creatinine Glucose POC Glucose 163 H 171 H Lactic Acid Calcium Phosphorus Magnesium Total Bilirubin AST ALT Alkaline Phosphatase Total Protein Albumin Triglycerides Arterial Blood Glucose Arterial Blood Ionized Calcium Digoxin Crossmatch 01/10/21 01/11/21 01/11/21 23:50 05:18 05:18 WBC RBC Hgb Hct MCV MCHC RDW Plt Count Lymph % (Auto) [place] % (Auto) Lymph # (Auto) [place] # (Auto) Seg Neutrophils % Seg Neuts % (Manual) Lymphocytes % (Manual) Monocytes % (Manual) Seg Neutrophils # Seg Neutrophils # Man Lymphocytes # (Manual) Monocytes # (Manual) PT INR ABG pH POC ABG pCO2 POC ABG pO2 ABG pO2 ABG HCO3 ABG O2 Saturation ABG Base Excess ABG Hemoglobin ABG Oxyhemoglobin ABG Sodium ABG Potassium ABG Chloride ABG Glucose Oxyhemoglobin Sodium 136 L Potassium Chloride 94.6 L Carbon Dioxide 19 L BUN 145 H Creatinine 10.6 H Glucose 152 H POC Glucose 151 H Lactic Acid Calcium Phosphorus 6.00 H D Magnesium Total Bilirubin AST ALT Alkaline Phosphatase Total Protein Albumin Triglycerides Arterial Blood Glucose Arterial Blood Ionized Calcium Digoxin 0.8 L Crossmatch 01/11/21 01/11/21 01/11/21 05:18 05:19 11:28 WBC 17.4 H RBC 3.34 L Hgb 10.2 L Hct 29.7 L MCV MCHC RDW 15.9 H Plt Count Lymph % (Auto) [place] % (Auto) Lymph # (Auto) [place] # (Auto) Seg Neutrophils % Seg Neuts % (Manual) Lymphocytes % (Manual) Monocytes % (Manual) Seg Neutrophils # Seg Neutrophils # Man Lymphocytes # (Manual) Monocytes # (Manual) PT INR ABG pH POC ABG pCO2 POC ABG pO2 ABG pO2 ABG HCO3 ABG O2 Saturation ABG Base Excess ABG Hemoglobin ABG Oxyhemoglobin ABG Sodium ABG Potassium ABG Chloride ABG Glucose Oxyhemoglobin Sodium Potassium Chloride Carbon Dioxide BUN Creatinine Glucose POC Glucose 149 H 178 H Lactic Acid Calcium Phosphorus Magnesium Total Bilirubin AST ALT Alkaline Phosphatase Total Protein Albumin Triglycerides Arterial Blood Glucose Arterial Blood Ionized Calcium Digoxin Crossmatch 01/11/21 01/11/21 01/12/21 17:31 23:14 05:18 WBC RBC Hgb Hct MCV MCHC RDW Plt Count Lymph % (Auto) [place] % (Auto) Lymph # (Auto) [place] # (Auto) Seg Neutrophils % Seg Neuts % (Manual) Lymphocytes % (Manual) Monocytes % (Manual) Seg Neutrophils # Seg Neutrophils # Man Lymphocytes # (Manual) Monocytes # (Manual) PT INR ABG pH POC ABG pCO2 POC ABG pO2 ABG pO2 ABG HCO3 ABG O2 Saturation ABG Base Excess ABG Hemoglobin ABG Oxyhemoglobin ABG Sodium ABG Potassium ABG Chloride ABG Glucose Oxyhemoglobin Sodium Potassium Chloride Carbon Dioxide BUN Creatinine Glucose POC Glucose 158 H 145 H 148 H Lactic Acid Calcium Phosphorus Magnesium Total Bilirubin AST ALT Alkaline Phosphatase Total Protein Albumin Triglycerides Arterial Blood Glucose Arterial Blood Ionized Calcium Digoxin Crossmatch 01/12/21 01/12/2121 06:50 10:45 13:34 WBC RBC Hgb Hct MCV MCHC RDW Plt Count Lymph % (Auto) [place] % (Auto) Lymph # (Auto) [place] # (Auto) Seg Neutrophils % Seg Neuts % (Manual) Lymphocytes % (Manual) Monocytes % (Manual) Seg Neutrophils # Seg Neutrophils # Man Lymphocytes # (Manual) Monocytes # (Manual) PT INR ABG pH POC ABG pCO2 POC ABG pO2 ABG pO2 ABG HCO3 ABG O2 Saturation ABG Base Excess ABG Hemoglobin ABG Oxyhemoglobin ABG Sodium ABG Potassium ABG Chloride ABG Glucose Oxyhemoglobin Sodium Potassium 2.9 L* D Chloride 94.8 L Carbon Dioxide BUN 102 H Creatinine 8.3 H Glucose 139 H POC Glucose 151 H 134 H Lactic Acid Calcium 8.1 L Phosphorus 5.00 H Magnesium Total Bilirubin AST ALT Alkaline Phosphatase Total Protein Albumin Triglycerides Arterial Blood Glucose Arterial Blood Ionized Calcium Digoxin Crossmatch 01/12/21 01/12/21 01/13/21 16:59 23:06 03:45 WBC RBC Hgb Hct MCV MCHC RDW Plt Count Lymph % (Auto) [place] % (Auto) Lymph # (Auto) [place] # (Auto) Seg Neutrophils % Seg Neuts % (Manual) Lymphocytes % (Manual) Monocytes % (Manual) Seg Neutrophils # Seg Neutrophils # Man Lymphocytes # (Manual) Monocytes # (Manual) PT INR ABG pH POC ABG pCO2 POC ABG pO2 ABG pO2 ABG HCO3 ABG O2 Saturation ABG Base Excess ABG Hemoglobin ABG Oxyhemoglobin ABG Sodium ABG Potassium ABG Chloride ABG Glucose Oxyhemoglobin Sodium 136 L Potassium 3.4 L Chloride 92.6 L Carbon Dioxide BUN 134 H Creatinine 10.4 H Glucose 126 H POC Glucose 108 H 135 H Lactic Acid Calcium 8.3 L Phosphorus 5.60 H Magnesium 1.50 L Total Bilirubin AST ALT Alkaline Phosphatase Total Protein Albumin Triglycerides Arterial Blood Glucose Arterial Blood Ionized Calcium Digoxin Crossmatch 01/13/21 01/13/21 01/13/21 03:45 05:55 11:59 WBC 17.6 H RBC 3.33 L Hgb 10.2 L Hct 29.5 L MCV MCHC 35 H RDW 15.5 H Plt Count Lymph % (Auto) 4.4 L [place] % (Auto) 10.3 H Lymph # (Auto) 0.8 L [place] # (Auto) 1.8 H Seg Neutrophils % 84.2 H Seg Neuts % (Manual) Lymphocytes % (Manual) Monocytes % (Manual) Seg Neutrophils # 14.8 H Seg Neutrophils # Man Lymphocytes # (Manual) Monocytes # (Manual) PT INR ABG pH POC ABG pCO2 POC ABG pO2 ABG pO2 ABG HCO3 ABG O2 Saturation ABG Base Excess ABG Hemoglobin ABG Oxyhemoglobin ABG Sodium ABG Potassium ABG Chloride ABG Glucose Oxyhemoglobin Sodium Potassium Chloride Carbon Dioxide BUN Creatinine Glucose POC Glucose 134 H 141 H Lactic Acid Calcium Phosphorus Magnesium Total Bilirubin AST ALT Alkaline Phosphatase Total Protein Albumin Triglycerides Arterial Blood Glucose Arterial Blood Ionized Calcium Digoxin Crossmatch 01/13/21 01/14/21 01/14/21 23:09 05:39 05:57 WBC RBC Hgb Hct MCV MCHC RDW Plt Count Lymph % (Auto) [place] % (Auto) Lymph # (Auto) [place] # (Auto) Seg Neutrophils % Seg Neuts % (Manual) Lymphocytes % (Manual) Monocytes % (Manual) Seg Neutrophils # Seg Neutrophils # Man Lymphocytes # (Manual) Monocytes # (Manual) PT INR ABG pH POC ABG pCO2 POC ABG pO2 ABG pO2 ABG HCO3 ABG O2 Saturation ABG Base Excess ABG Hemoglobin ABG Oxyhemoglobin ABG Sodium ABG Potassium ABG Chloride ABG Glucose Oxyhemoglobin Sodium Potassium Chloride 97.6 L Carbon Dioxide BUN 81 H Creatinine 7.6 H Glucose 193 H POC Glucose 106 H 190 H Lactic Acid Calcium 8.2 L Phosphorus 4.60 H Magnesium Total Bilirubin AST ALT Alkaline Phosphatase Total Protein Albumin Triglycerides Arterial Blood Glucose Arterial Blood Ionized Calcium Digoxin Crossmatch 01/14/21 01/14/21 01/14/21 10:00 16:56 16:59 WBC 17.0 H RBC 3.10 L Hgb 9.6 L Hct 27.4 L MCV MCHC 35 H RDW 15.6 H Plt Count Lymph % (Auto) [place] % (Auto) Lymph # (Auto) [place] # (Auto) Seg Neutrophils % Seg Neuts % (Manual) Lymphocytes % (Manual) Monocytes % (Manual) Seg Neutrophils # Seg Neutrophils # Man Lymphocytes # (Manual) Monocytes # (Manual) PT INR ABG pH POC ABG pCO2 POC ABG pO2 ABG pO2 ABG HCO3 ABG O2 Saturation ABG Base Excess ABG Hemoglobin ABG Oxyhemoglobin ABG Sodium ABG Potassium ABG Chloride ABG Glucose Oxyhemoglobin Sodium Potassium Chloride Carbon Dioxide BUN Creatinine Glucose POC Glucose 37 L 34 L Lactic Acid Calcium Phosphorus Magnesium Total Bilirubin AST ALT Alkaline Phosphatase Total Protein Albumin Triglycerides Arterial Blood Glucose Arterial Blood Ionized Calcium Digoxin Crossmatch 01/14/21 01/14/21 01/14/21 17:02 18:34 23:17 WBC RBC Hgb Hct MCV MCHC RDW Plt Count Lymph % (Auto) [place] % (Auto) Lymph # (Auto) [place] # (Auto) Seg Neutrophils % Seg Neuts % (Manual) Lymphocytes % (Manual) Monocytes % (Manual) Seg Neutrophils # Seg Neutrophils # Man Lymphocytes # (Manual) Monocytes # (Manual) PT INR ABG pH POC ABG pCO2 POC ABG pO2 ABG pO2 ABG HCO3 ABG O2 Saturation ABG Base Excess ABG Hemoglobin ABG Oxyhemoglobin ABG Sodium ABG Potassium ABG Chloride ABG Glucose Oxyhemoglobin Sodium Potassium Chloride Carbon Dioxide BUN Creatinine Glucose POC Glucose 35 L 143 H 53 L Lactic Acid Calcium Phosphorus Magnesium Total Bilirubin AST ALT Alkaline Phosphatase Total Protein Albumin Triglycerides Arterial Blood Glucose Arterial Blood Ionized Calcium Digoxin Crossmatch 01/15/21 01/15/21 01/15/21 00:34 04:00 04:00 WBC 15.9 H RBC 3.02 L Hgb 9.3 L Hct 27.3 L MCV MCHC RDW 15.6 H Plt Count Lymph % (Auto) [place] % (Auto) Lymph # (Auto) [place] # (Auto) Seg Neutrophils % Seg Neuts % (Manual) Lymphocytes % (Manual) Monocytes % (Manual) Seg Neutrophils # Seg Neutrophils # Man Lymphocytes # (Manual) Monocytes # (Manual) PT INR ABG pH POC ABG pCO2 POC ABG pO2 ABG pO2 ABG HCO3 ABG O2 Saturation ABG Base Excess ABG Hemoglobin ABG Oxyhemoglobin ABG Sodium ABG Potassium ABG Chloride ABG Glucose Oxyhemoglobin Sodium 136 L Potassium Chloride 94.3 L Carbon Dioxide BUN 117 H Creatinine 9.9 H Glucose 217 H POC Glucose 181 H Lactic Acid Calcium 8.3 L Phosphorus Magnesium Total Bilirubin AST ALT Alkaline Phosphatase Total Protein Albumin Triglycerides Arterial Blood Glucose Arterial Blood Ionized Calcium Digoxin Crossmatch 01/15/21 01/15/21 01/15/21 05:29 11:51 23:13 WBC RBC Hgb Hct MCV MCHC RDW Plt Count Lymph % (Auto) [place] % (Auto) Lymph # (Auto) [place] # (Auto) Seg Neutrophils % Seg Neuts % (Manual) Lymphocytes % (Manual) Monocytes % (Manual) Seg Neutrophils # Seg Neutrophils # Man Lymphocytes # (Manual) Monocytes # (Manual) PT INR ABG pH POC ABG pCO2 POC ABG pO2 ABG pO2 ABG HCO3 ABG O2 Saturation ABG Base Excess ABG Hemoglobin ABG Oxyhemoglobin ABG Sodium ABG Potassium ABG Chloride ABG Glucose Oxyhemoglobin Sodium Potassium Chloride Carbon Dioxide BUN Creatinine Glucose POC Glucose 221 H 62 L 154 H Lactic Acid Calcium Phosphorus Magnesium Total Bilirubin AST ALT Alkaline Phosphatase Total Protein Albumin Triglycerides Arterial Blood Glucose Arterial Blood Ionized Calcium Digoxin Crossmatch 01/16/21 01/16/21 01/16/21 05:04 06:44 06:44 WBC 14.8 H RBC 2.76 L Hgb 8.2 L Hct 24.8 L MCV MCHC RDW 15.6 H Plt Count Lymph % (Auto) [place] % (Auto) Lymph # (Auto) [place] # (Auto) Seg Neutrophils % Seg Neuts % (Manual) Lymphocytes % (Manual) Monocytes % (Manual) Seg Neutrophils # Seg Neutrophils # Man Lymphocytes # (Manual) Monocytes # (Manual) PT INR ABG pH POC ABG pCO2 POC ABG pO2 ABG pO2 ABG HCO3 ABG O2 Saturation ABG Base Excess ABG Hemoglobin ABG Oxyhemoglobin ABG Sodium ABG Potassium ABG Chloride ABG Glucose Oxyhemoglobin Sodium 133 L Potassium Chloride 92.3 L Carbon Dioxide 20 L BUN 160 H Creatinine 12.1 H Glucose 177 H POC Glucose 168 H Lactic Acid Calcium 8.1 L Phosphorus 5.50 H Magnesium 2.50 H Total Bilirubin AST ALT Alkaline Phosphatase Total Protein Albumin Triglycerides Arterial Blood Glucose Arterial Blood Ionized Calcium Digoxin Crossmatch 01/16/21 01/17/21 01/17/21 23:20 05:14 05:14 WBC 12.7 H RBC 2.75 L Hgb 8.5 L Hct 24.6 L MCV MCHC 35 H RDW 15.4 H Plt Count Lymph % (Auto) [place] % (Auto) Lymph # (Auto) [place] # (Auto) Seg Neutrophils % Seg Neuts % (Manual) Lymphocytes % (Manual) Monocytes % (Manual) Seg Neutrophils # Seg Neutrophils # Man Lymphocytes # (Manual) Monocytes # (Manual) PT INR ABG pH POC ABG pCO2 POC ABG pO2 ABG pO2 ABG HCO3 ABG O2 Saturation ABG Base Excess ABG Hemoglobin ABG Oxyhemoglobin ABG Sodium ABG Potassium ABG Chloride ABG Glucose Oxyhemoglobin Sodium Potassium Chloride 97.9 L Carbon Dioxide BUN 84 H Creatinine 7.8 H Glucose 176 H POC Glucose 153 H Lactic Acid Calcium 8.0 L Phosphorus Magnesium Total Bilirubin AST ALT Alkaline Phosphatase Total Protein Albumin Triglycerides Arterial Blood Glucose Arterial Blood Ionized Calcium Digoxin Crossmatch 01/17/21 01/17/21 01/18/21 05:33 11:58 00:07 WBC RBC Hgb Hct MCV MCHC RDW Plt Count Lymph % (Auto) [place] % (Auto) Lymph # (Auto) [place] # (Auto) Seg Neutrophils % Seg Neuts % (Manual) Lymphocytes % (Manual) Monocytes % (Manual) Seg Neutrophils # Seg Neutrophils # Man Lymphocytes # (Manual) Monocytes # (Manual) PT INR ABG pH POC ABG pCO2 POC ABG pO2 ABG pO2 ABG HCO3 ABG O2 Saturation ABG Base Excess ABG Hemoglobin ABG Oxyhemoglobin ABG Sodium ABG Potassium ABG Chloride ABG Glucose Oxyhemoglobin Sodium Potassium Chloride Carbon Dioxide BUN Creatinine Glucose POC Glucose 162 H 64 L 146 H Lactic Acid Calcium Phosphorus Magnesium Total Bilirubin AST ALT Alkaline Phosphatase Total Protein Albumin Triglycerides Arterial Blood Glucose Arterial Blood Ionized Calcium Digoxin Crossmatch 01/18/21 01/18/21 01/18/21 04:19 04:19 06:15 WBC 15.6 H RBC 3.00 L Hgb 9.2 L Hct 26.8 L MCV MCHC 35 H RDW 15.6 H Plt Count Lymph % (Auto) [place] % (Auto) Lymph # (Auto) [place] # (Auto) Seg Neutrophils % Seg Neuts % (Manual) Lymphocytes % (Manual) Monocytes % (Manual) Seg Neutrophils # Seg Neutrophils # Man Lymphocytes # (Manual) Monocytes # (Manual) PT INR ABG pH POC ABG pCO2 POC ABG pO2 ABG pO2 ABG HCO3 ABG O2 Saturation ABG Base Excess ABG Hemoglobin ABG Oxyhemoglobin ABG Sodium ABG Potassium ABG Chloride ABG Glucose Oxyhemoglobin Sodium Potassium Chloride 96.2 L Carbon Dioxide BUN 117 H Creatinine 10.0 H Glucose 165 H POC Glucose 189 H Lactic Acid Calcium Phosphorus 4.70 H D Magnesium Total Bilirubin AST ALT Alkaline Phosphatase Total Protein Albumin Triglycerides Arterial Blood Glucose Arterial Blood Ionized Calcium Digoxin Crossmatch 01/18/21 01/18/2101/18/21 11:53 13:44 15:08 WBC RBC Hgb Hct MCV MCHC RDW Plt Count Lymph % (Auto) [place] % (Auto) Lymph # (Auto) [place] # (Auto) Seg Neutrophils % Seg Neuts % (Manual) Lymphocytes % (Manual) Monocytes % (Manual) Seg Neutrophils # Seg Neutrophils # Man Lymphocytes # (Manual) Monocytes # (Manual) PT INR ABG pH POC ABG pCO2 POC ABG pO2 ABG pO2 ABG HCO3 ABG O2 Saturation ABG Base Excess ABG Hemoglobin ABG Oxyhemoglobin ABG Sodium ABG Potassium ABG Chloride ABG Glucose Oxyhemoglobin Sodium Potassium Chloride Carbon Dioxide BUN Creatinine Glucose POC Glucose 69 L 50 L 56 L Lactic Acid Calcium Phosphorus Magnesium Total Bilirubin AST ALT Alkaline Phosphatase Total Protein Albumin Triglycerides Arterial Blood Glucose Arterial Blood Ionized Calcium Digoxin Crossmatch 01/18/21 01/19/21 01/19/21 17:50 04:55 08:56 WBC 12.7 H RBC 2.89 L Hgb 8.7 L Hct 25.6 L MCV MCHC RDW 15.5 H Plt Count Lymph % (Auto) [place] % (Auto) Lymph # (Auto) [place] # (Auto) Seg Neutrophils % Seg Neuts % (Manual) Lymphocytes % (Manual) Monocytes % (Manual) Seg Neutrophils # Seg Neutrophils # Man Lymphocytes # (Manual) Monocytes # (Manual) PT INR ABG pH POC ABG pCO2 POC ABG pO2 ABG pO2 ABG HCO3 ABG O2 Saturation ABG Base Excess ABG Hemoglobin ABG Oxyhemoglobin ABG Sodium ABG Potassium ABG Chloride ABG Glucose Oxyhemoglobin Sodium Potassium Chloride Carbon Dioxide BUN Creatinine Glucose POC Glucose 137 H 120 H Lactic Acid Calcium Phosphorus Magnesium Total Bilirubin AST ALT Alkaline Phosphatase Total Protein Albumin Triglycerides Arterial Blood Glucose Arterial Blood Ionized Calcium Digoxin Crossmatch 01/19/21 01/19/21 08:56 11:33 WBC RBC Hgb Hct MCV MCHC RDW Plt Count Lymph % (Auto) [place] % (Auto) Lymph # (Auto) [place] # (Auto) Seg Neutrophils % Seg Neuts % (Manual) Lymphocytes % (Manual) Monocytes % (Manual) Seg Neutrophils # Seg Neutrophils # Man Lymphocytes # (Manual) Monocytes # (Manual) PT INR ABG pH POC ABG pCO2 POC ABG pO2 ABG pO2 ABG HCO3 ABG O2 Saturation ABG Base Excess ABG Hemoglobin ABG Oxyhemoglobin ABG Sodium ABG Potassium ABG Chloride ABG Glucose Oxyhemoglobin Sodium Potassium Chloride Carbon Dioxide BUN 66 H Creatinine 7.7 H Glucose 119 H POC Glucose 160 H Lactic Acid Calcium 8.3 L Phosphorus Magnesium Total Bilirubin AST ALT Alkaline Phosphatase Total Protein Albumin Triglycerides Arterial Blood Glucose Arterial Blood Ionized Calcium Digoxin Crossmatch Allied health notes reviewed: nursing
[2021-01-19] MEDS: HYDROmorphone 1 MG/1 ML INJ IV PRN ×2 (16:39→22:16)
[2021-01-19] MEDS ORDERED: ALTEPLASE 2 MG INJ IV ONE (16:50)
[2021-01-19] MEDS ORDERED: TOTAL PARENTERAL NUTRITION 2,016 ML IV SCH (20:00)
[2021-01-19] MEDS ORDERED: TOTAL PARENTERAL NUTRITION 3,000 ML IV SCH (20:00)
[2021-01-19] MEDS: INSULIN GLARGINE 100 UNITS/ML SUB-Q SCH (21:17)
[2021-01-19] MEDS: HALOPERIDOL LACTATE 5 MG/1 ML INJ IV PRN (22:14)
[2021-01-20] MEDS: INSULIN LISPRO 100 UNIT/ML SUB-Q SCH ×3 (00:46→17:16)
[2021-01-20] MEDS: METOPROLOL TARTRATE 5 MG/5 ML INJ IV SCH ×4 (02:58→17:17)
[2021-01-20] MEDS: hydrALAZINE 20 MG/1 ML INJ IV SCH ×5 (02:58→22:32)
[2021-01-20] MEDS: PIPERACIL-TAZO 2.25 GM/50 ML 2.25 GM/50 ML BAG IV SCH ×2 (03:00→12:18)
[2021-01-20] MEDS: OCTREOTIDE 500 MCG in SODIUM CHLORIDE 0.9% 100 ML IV SCH ×2 (03:08→23:07)
[2021-01-20 03:50] LABS: Hematocrit 23.2 % (35.5-45.6); Hemoglobin 8.3 gm/dl (11.8-15.2); Mean Corpuscular HGB Conc 36 % (32-34); Mean Corpuscular Volume 89 fl (84-94); Platelet Count 230 K/mm3 (140-440); Red Blood Count 2.62 M/mm3 (3.65-5.03); Red Cell Distribution Width 15.2 % (13.2-15.2)
[2021-01-20 04:12] LABS: Calcium 8.8 mg/dL (8.4-10.2)
--- NOTE | 2021-01-20 07:10 | Progress Note ---
Assessment and Plan Assessment: - ESRD on peritoneal dialysis. He has been on peritoneal dialysis for the past 2 years. He denies any history of peritonitis. - Abdominal pain. CT scan without organ perforation. Need to rule out peritonitis. - small bowel obstruction s/p exp - Hypertension - Hyperkalemia - Anemia of ESRD - Hyperglycemia Plan: - continue IV empiric abx - s/p ex lap, stop PD, will likely not be able to continue pd with adhesion and sbo s/p resection -uf as tolerated with HD -continue hd today in am, needs outpatient hd placement - stopped binders and sensipar - strict i/os, uf as tolerated -keep MAP >65, vasopressors prn -add albumin today - monitor electrolytes daily Subjective Date of service: 01/20/21 Principal diagnosis: Ac hypoxemic resp failure; Severe Sepsis; Peritonitis; Acute SBO; ESRD; CHF Interval history: resting in bed event noted Objective - Exam Narrative Exam: - General Limitations: Physical Limitation General appearance: alert, in no apparent distress - Head Head exam: Present: atraumatic, normocephalic - Eye Eye exam: Present: normal appearance, EOMI - ENT ENT exam: Present: mucous membranes moist - Neck Neck exam: Present: normal inspection - Respiratory Respiratory exam: Present: normal lung sounds bilaterally. Absent: respiratory distress - Cardiovascular Cardiovascular Exam: Present: normal rhythm, tachycardia - GI/Abdominal GI/Abdominal exam: Present: soft, distended (slightly), tenderness (periumbil ical ) - Extremities Exam Extremities exam: Present: normal inspection - Neurological Exam Neurological exam: Present: alert, oriented X3 - Psychiatric Psychiatric exam: Present: normal affect, normal mood - Skin Skin exam: Present: warm, dry, intact, normal color - Vital Signs Vital signs: Vital Signs - 12hr 01/19/21 01/19/21 01/19/21 19:45 20:00 21:00 Temperature 99.1 F Pulse Rate 52 L 55 L 55 L Pulse Rate [ From Monitor] Respiratory 12 17 Rate Respiratory Rate [Anterior Abdomen] Blood Pressure 131/57 139/68 O2 Sat by Pulse 100 97 Oximetry 01/19/21 01/19/21 01/19/21 21:16 21:36 21:40 Temperature Pulse Rate 60 Pulse Rate [ 60 From Monitor] Respiratory 16 Rate Respiratory 16 Rate [Anterior Abdomen] Blood Pressure 139/68 O2 Sat by Pulse 99 Oximetry 01/19/21 01/19/21 01/19/21 22:00 22:08 22:16 Temperature Pulse Rate 55 L 55 L Pulse Rate [ From Monitor] Respiratory 14 16 Rate Respiratory Rate [Anterior Abdomen] Blood Pressure 139/64 O2 Sat by Pulse 97 Oximetry 01/19/21 01/19/21 01/19/21 22:46 23:00 23:34 Temperature Pulse Rate 60 56 L Pulse Rate [ From Monitor] Respiratory 16 17 16 Rate Respiratory Rate [Anterior Abdomen] Blood Pressure 127/63 127/63 O2 Sat by Pulse 98 100 Oximetry 01/19/21 01/19/21 01/20/21 23:39 23:40 00:00 Temperature 98.8 F Pulse Rate 55 L 57 L Pulse Rate [ From Monitor] Respiratory 13 Rate Respiratory Rate [Anterior Abdomen] Blood Pressure 117/56 O2 Sat by Pulse 97 Oximetry 01/20/21 01/20/21 01/20/21 01:00 02:00 02:58 Temperature Pulse Rate 59 L 55 L 54 L Pulse Rate [ 59 L From Monitor] Respiratory 16 13 Rate Respiratory Rate [Anterior Abdomen] Blood Pressure 141/69 136/68 136/68 O2 Sat by Pulse 96 99 Oximetry 01/20/21 01/20/21 01/20/21 03:00 03:54 04:00 Temperature 98.5 F Pulse Rate 55 L 55 L Pulse Rate [ From Monitor] Respiratory 15 19 Rate Respiratory Rate [Anterior Abdomen] Blood Pressure 136/65 150/69 O2 Sat by Pulse 95 94 Oximetry 01/20/21 01/20/21 01/20/21 05:00 05:47 06:00 Temperature Pulse Rate 59 L 58 L 60 Pulse Rate [ From Monitor] Respiratory 27 H 17 Rate Respiratory Rate [Anterior Abdomen] Blood Pressure 142/79 142/79 145/66 O2 Sat by Pulse 98 97 Oximetry - Lab 01/20/21 03:35 01/20/21 03:35 Most recent lab results ABG pH 7.345 pH Units (7.350-7.450) L 01/07/21 17:14 ABG pCO2 40.3 mm Hg 01/07/21 17:14 ABG pO2 67.4 mm Hg (80.0-90.0) L 01/07/21 17:14 ABG HCO3 21.5 mmol/L (20.0-26.0) 01/07/21 17:14 ABG O2 Saturation 94.3 % (95.0-99.0) L 01/07/21 17:14 Calcium 8.8 mg/dL (8.4-10.2) 01/20/21 03:35 Phosphorus 4.70 mg/dL (2.5-4.5) H D 01/18/21 04:19 Magnesium 2.00 mg/dL (1.7-2.3) 01/18/21 04:19 Medications & Allergies - Medications Allergies/Adverse Reactions: Allergies No Known Allergies Allergy (Verified 06/09/20 15:27) Home Medications: Home Medications Medication Instructions Recorded Confirmed Last Taken Type Albuterol Mdi (or & Nicu Only) 2 puff IH QID PRN #1 inhalation 04/01/17 11/01/20 10/31/20 09:00 Rx [ProAir HFA Inhaler] Calcium Acetate 667 mg PO DAILY 04/20/20 11/01/20 10/31/20 09:00 History Centrum Men's Tablet 1 tab PO DAILY 04/20/20 11/01/20 10/31/20 09:00 History Cinacalcet 30 mg PO DAILY 04/20/20 11/01/20 10/31/20 09:00 History Dialyvite with Zinc Tablet 1 tab PO DAILY 04/20/20 11/01/20 10/31/20 09:00 History Magnesium 250 mg PO BID 04/20/20 11/01/20 10/31/20 17:00 History Triamcinolone 0.1% 1 1000units TRANSDERMA DAILY 04/20/20 11/01/20 10/31/20 09:00 History Vit B12/Folic Acid/B6/Aa No.15 1,000 mg PO DAILY 04/20/20 11/01/20 10/31/20 09:00 History amLODIPine 10 mg PO DAILY 06/09/20 11/01/20 10/31/20 09:00 History AtorvaSTATin 40 mg PO HS 11/01/20 11/01/20 10/31/20 21:00 History Benadryl 25 mg PO HS 11/01/20 11/01/20 10/31/20 21:00 History Diclofenac 1 TRANSDERMA QID 11/01/20 10/31/20 19:00 History Fluticasone Propionate 1 spray INTRANASAL DAILY 11/01/20 11/01/20 10/31/20 09:00 History Vitamin D3 2,000 units 11/01/20 10/31/20 09:00 History carvediloL 12.5 mg PO DAILY 11/01/20 11/01/20 10/31/20 09:00 History hydrALAZINE 100 mg PO TID 11/01/20 11/01/20 10/31/20 19:00 History Active Medications: Generic Name Dose Route Start Last Admin Trade Name Freq PRN Reason Stop Dose Admin Acetaminophen 650 mg 12/31/20 15:30 12/31/20 15:13 Acetaminophen 650 Mg Rect Supp [place] 650 mg Q6H PRN Administration Non Cardiac Pain or Temp>100.5 Clonidine HCl 0.2 mg 01/11/21 10:00 01/18/21 10:11 Clonidine Tts 0.2 Mg/24 Hr Patch TD 0.2 mg We THOMAS Administration Dextrose 50 ml 01/14/21 17:59 01/18/21 15:10 Dextrose 50% In Water (25gm) 50 Ml Syringe IV 20 ml Q30MIN PRN Administration Hypoglycemia Protocol Digoxin 0.125 mg 01/09/21 12:00 01/19/21 14:45 Digoxin 0.5 Mg/2 Ml Inj IV 0.125 mg Q48H THOMAS Administration Famotidine 10 mg 12/24/20 13:00 01/19/21 21:15 Famotidine 20 Mg/2 Ml Inj IV 10 mg BID THOMAS Administration Haloperidol Lactate 5 mg 12/29/20 14:16 01/19/21 22:14 Haloperidol Lactate 5 Mg/1 Ml Inj IV 5 mg Q12H PRN Administration Agitation Heparin Sodium (Porcine) 5,000 unit 12/24/20 10:00 01/19/21 21:17 Heparin 5,000 Unit/1 Ml Vial SUB-Q 5,000 unit Q12HR THOMAS Administration Hydralazine HCl 10 mg 01/10/21 14:00 01/20/21 05:47 Hydralazine 20 Mg/1 Ml Inj IV 10 mg Q4HR THOMAS Administration Hydromorphone HCl 0.25 mg 01/09/21 10:53 01/19/21 22:16 Hydromorphone 1 Mg/1 Ml Inj IV 0.25 mg Q6H PRN Administration Pain , Severe (7-10) Hydrophilic Ointment 1 applic 12/31/20 06:39 01/11/21 21:28 Lip Therapy Vaseline TP 1 applic Q2HR PRN Administration Dry Lips Octreotide Acetate 500 mcg/ 101 mls @ 5.05 mls/hr 01/13/21 11:00 01/20/21 03:08 Sodium Chloride IV 25 mcg/hr TITR THOMAS 5.05 mls/hr Administration Protocol 25 MCG/HR Piperacillin Sod/Tazobactam Sod 2.25 gm in 50 mls @ 100 mls/hr 01/13/21 12:00 01/20/21 03:00 Zosyn/Ns 2.25 Gm/50ml IV 100 mls/hr Q8H THOMAS Administration Protocol Dextrose/Sodium Chloride 1,000 mls @ 45 mls/hr 01/18/21 15:00 01/18/21 14:43 D5/0.45ns IV 45 mls/hr DIRECT THOMAS Administration Sodium Chloride 100 mls @ 999 mls/hr 01/19/21 09:30 Nacl 0.9% IV [place] PRN Hypotension Amino Acids/Electrolytes/Dextrose 2,016 mls @ 84 mls/hr 01/19/21 20:00 01/19/21 20:57 Tpn Adult IV 01/20/21 19:59 84 mls/hr DAILY@2000 [facility] Administration Protocol Insulin Glargine 5 units 01/18/21 22:00 01/19/21 21:17 Insulin Glargine 100 Units/Ml SUB-Q 5 units QHS [facility] Administration Insulin Human Lispro 0 unit 01/03/21 12:00 01/20/21 06:34 Insulin Lispro 100 Unit/Ml SUB-Q Not Given Q6HR [facility] Protocol Metoprolol Tartrate 5 mg 12/30/20 12:00 01/20/21 05:47 Metoprolol Tartrate 5 Mg/5 Ml Inj IV Not Given Q4HR [facility] Multi-Ingred Cream/Lotion/Oil/Oint 1 applic 12/31/20 06:39 Mineral Oil/Petrolatum, White Ophth Oint 3.5 Gm OU Q4HR PRN Dry Eye(s) Scopolamine 1 each 01/15/21 11:00 01/18/21 09:08 Scopolamine Transdermal Patch 72 Hr TD 1 each Q3D THOMAS Administration Sodium Chloride 10 ml 12/22/20 22:00 01/19/21 21:17 Sodium Chloride 0.9% 10 Ml Flush Syringe IV 10 ml BID THOMAS Administration Sodium Chloride 10 ml 12/22/20 19:42 01/09/21 17:27 Sodium Chloride 0.9% 10 Ml Flush Syringe IV 10 ml PRN PRN Administration LINE FLUSH
--- NOTE | 2021-01-20 09:51 | Progress Note ---
Assessment and Plan Assessment and plan: This is a 60 YO Male with ESRD on PD, GERD, Crohn's Disease, Nicotine Dependence, HTN, Systolic CHF(EF 35%) who presented to the emergency department on 12/22 with complaints of abdominal pain which began shortly after eating fast food rated 10/10 which is periumbilical, constant, associated with fever, nausea and multiple sites of vomiting and self-reported inability to undergo PD. In the emergency room patient underwent a CT scan of the abdomen/pelvis which revealed evidence of partial small bowel obstruction, symptoms were consistent with bacterial peritonitis. Patient was admitted to the hospital service with sepsis, peritonitis, and small bowel obstruction with consults to general surgery, nephrology, infectious disease and [facility]. 12/23. Patient had temperature 101.2 F, tachycardia and elevated lactic acid on admission. Meet sepsis criteria. Started on IV antibiotics. ID has been c onsulted. Surgery consulted this a.m.-advised laparoscopy. He remains on NG tube connected to suction. 12/24. Patient was noted to have peritonitis yesterday and patient undergoing exploratory laparotomy. Patient remained intubated after procedure and is in ICU. Now on broad-spectrum antibiotics. ID on board. 12/25. Remains mechanically ventilated and sedated. Temp 103 Fahrenheit. Antibiotics broadened-ID added fluconazole and Flagyl. Blood cultures ordered. Plan to repeat CT abdomen tomorrow if not better. Surgery following. 12/26: Patient remains on mechanical ventilation on CMV tidal line 550, rate of 14, PEEP of 8 and 30% FiO2 and sedated on fentanyl 4 micrograms. Today we will remove his Jeffery and CCM dropped his rate controlled him on CPAP. We will trend CBC given recent drop in H/H. 12/27: Patient remains intubated on CMV tidal volume 550, rate 12, PEEP 8 on 30% FiO2 at the time my examination. Patient's TPN will be changed to PPN. Patient's fentanyl drip will be changed to IV push fentanyl and have a permacath placed today and midline. Patient was placed on a spontaneous breathing trial was switched back to CMV prior to procedure. 12/28: Patient on fentanyl but awake and follows commands. At the time of my examination he was on a CPAP trial and is scheduled to receive HD today. s/o permacath and PICC placement with vascular yesterday. His blood culture grew Prevotella and addition to Streptococcus bovis. This evening Dr. Spicer attempted to extubate the patient and his heart rate went to the 180s. Stat EKG obtained and cardiology consulted. 12/29: Patient was started on amiodarone IV for A. fib RVR yesterday and today he is more rate controlled into the 70s and 80s. Patient was extubated yesterday and is currently on Ventimask. Patient will be transferred to [facility]. Patient continues to be n.p.o. with TPN and NG tube to LIS. He is hypokalemic today which was repleted. 12/30; patient was on IV amiodarone for treatment with RVR, rate is controlled. Patient was off oxygen. patient is n.p.o. and on TPN. Surgery is following the patient. 12/31: Patient was intubated overnight for respiratory distress and this morning on examination he was on assist control tidal volume 450, rate 20, PEEP 6, 100% FiO2 and RT was getting a ABG to adjust vent settings. Patient had a acute bump in WBC and per ID recommendations we will obtain a CT abdomen/pelvis if leukocytosis persist. Patient is on TPN and sedated with Levophed. Patient is also on vasopressor support with Levophed. Per surgery his ileus is resolving however will maintain OGT to LIWS. 01/01: Patient was started on a vasopressin yesterday late evening. This morning patient is on 20 mcg of Levophed and 0.03 vasopressin and sedated on 20 mcg of propofol. Patient WBC increased today and he is hypokalemic. We will treat hyperkalemia. Patient had a CT chest and abdomen/pelvis pending. The time examination total of 450, rate 20, PEEP of 6 and 35 percent FiO2. Per RN, Dr Pollock has stated that the patient will be returning to the OR today for likely anastomosis seen on CT abdomen/pelvis. 01/02: Patient noted, WBC improving, but noted to have anemia, will transfuse additional unit of Blood and repeat H/H. continue supportive care. 01/03: Continue to wean pressors, ABX PER ID, patient to return to OR today for washout and possible closure, CONTINUE TPN 01/04: Continues to show some improvement. Today is POD#12 s/p ex lap with extensive lysis of adhesions and two small bowel resections with primary anastamosis for SBO with necrotic segment small bowel. POD#3 s/p ex lap, resection of perforated anastamosis, washout and abthera wound vac placement. POD#1 s/p ex lap with right hemicolectomy. Surgery planning to take back to the OR on Saturday with the hope to anastamos ileum to transverse colon and close abdomen. keep NGT to suction. Pt in deep sedation due to open abdomen. Per ID - Continue IV Zosyn, renally dosed for Strep bacteremia treatment till 01/06/2021 -On TPN 01/05: Patient continues on HD, anticipate return to OR tomorrow for closure and anastemosis. Continues with deep sedation due to open abdomen 01/06: Continue supportive care, monitor pressures and electrolytes. He is post op Exploratory laparotomy, 2. Jejunal colonic anastomosis,3. Segmental small bowel resection and anastemosis closure today. Continue wound vac 01/07: Continue supportive care, Today is POD#15 s/p ex lap with extensive lysis of adhesions and two small bowel resections with primary anastamosis for SBO with necrotic segment small bowel. POD#6 s/p ex lap, resection of perforated anastamosis, washout and abthera wound vac placement. POD#4 s/p ex lap with right hemicolectomy. POD #1 exploratory laparotomy, 2. Jejunal colonic anastomosis,3. Segmental small bowel resection. Continue to monitor and correct electrolytes. Patient remains on fentanyl and TPN with lipids. Still hypoactive bowel sounds. 16: Patient now extubated, asked when he can go home, Still lethargic. Continue wound management, wound vac, Will need Rehab eval prior to discharge. 01/09: Patient remains on TPN, was started on labetalol drip per cardiology, africa dueñas had uncontrolled hypertension today however he cannot be given p.o. medications ileus resolves per surgery. Patient received hemodialysis today. NG tube remains to low intermittent suction. 01/10: Patient has some leukocytosis, slight hypokalemia and hyponatremia, metabolic acidosis. NG tube to LIWS, continue TPN. Patient will be downgraded to IMCU today. [facility] is working on placement. Will change frequency of hydralazine and discontinue labetalol drip. We will obtain a.m. BMP/mag/Phos and CBC. Infectious disease will like to start Zosyn if leukocytosis continues to worsen. 01/11: Patient leukocytosis has slightly improved potassium with in normal limits and other electrolytes are elevated but patient is scheduled for HD today. Remains on RA and A,A,Ox4. BP better controlled but remains elevated and we will increase clonidine dose. 01/12/2021; patient's blood pressure is better after dialysis and as needed IV medications and clonidine patch. Patient is followed by general surgery. Patient was alert and oriented and asked when he is going home. 01/13: Surgery is concerned about a leak at his anastamosis given increased output and will treat as controlled fistula and start an octreotide drip. And per surgery if he requires operative intervention will likely need to be left in discontinuity and eventual ileostomy as he has already failed two anastamoses. Patient still has tongue swelling and slurred speech. He is on Benadryl. 01/14: Patient's tongue swelling is improved, patient is alert and oriented, CAM ICU negative. Continue NG tube to low wall intermittent suction. Leukocytosis is improving. Hypomagnesemia resolved. Epogen with HD 01/15: Patient tongue swelling is much improved, bladder scan completed by bedside RN and he needed to be straight cathed. NGT output decreased. Leukocytosis improving. Patient has been having episodes of hypoglycemia during the day and he is on cyclic TPN, Lantus rescheduled to nightly and dosage decreased. 01/16: Continue management per ID and surgery. Will defer repeat CT of the abdomen to the team surgery has been approved by nephrology. Continue current diet and advance all to ice if okay with surgery discussed with nursing staff. 01/17: Discussed surgical recommendation of strict n.p.o. except for small amount of ice as patient has already failed to anastomosis. And risk for additional surgery with tissues were extremely friable from previous scar. He continues on octreotide drip to slow down GI output HARIS drain remains in place with NG suction for decompression. Patient verbalized understanding although stressed about being discharged. We will continue IMCU care unless otherwise advised by david andersen. Prognosis remains guarded continue to monitor electrolytes considering GI output. 01/18: Continue supportive care, BP mildly elevated, continue to monitor, continue current therapy, if no return to PO soon may consider Increasing clonidine to 0.3, PO when ok with surgery. 01/19:Continue supportive care, Per ID continue IV Zosyn, plan to stop at 3 weeks from last surgery end date: 01/24/2021. Other management per surgery. Continue TPN. 01/20: Discussed with Surgery, will continue current management. Advised patient of the findings and plan. Severe Sepsis with shock Streptococcus bovis bacteremia/Prevotella bacteremia Gwendolyn albicans tracheal aspirate Small bowel obstruction/necrotic bowel s/p ex lap with extensive lysis of adhesions, 2 small bowel resections with primary anastomosis, right hemicolectomy, jejunal colonic anastomosis, segmental small bowel resection Postoperative ileus Atrial fibrillation with RVR Leukocytosis Hypochloremia Gwendolyn albicans in tracheal aspirate from 12/24 ESRD on PD, PermCath to be placed Transaminitis Systolic CHF(EF 35%) Crohn's disease Hypertension -[facility], surgery, infectious disease, nephrology, vascular surgery, cardiology consulted, appreciate recommendations -12/24 S/p ex lap with extensive expectations, 2 small bowel resections with primary anastomosis with surgery on 12/23 -s/p PICC and Permacath placement with vascular surgery on 12/27 -Extubated on 12/28, reintubated 12/31 for respiratory distress and extubated 01/08 -12/29 echocardiogram shows moderate concentric LVH, small pericardial effusion, transmitral Doppler flow pattern is grade 1 abnormal relaxation pattern, left- ventricular systolic function normal, LVEF 50 to 55%, no wall motion abnormalities. -01/01 CT abdomen/pelvis shows small pericardial effusion, mild coronary artery atherosclerotic calcification, small bilateral pleural effusions with associated volume loss, no convincing evidence of bowel obstruction or inflammation, postoperative changes from interval/recent midline laparotomy with a moderate amount of free fluid throughout the abdomen, small amount of dependent free air presumably postoperative -01/02 s/p ex lap, resection of perforated anastamosis, washout and abthera wound vac placement. -01/04 s/p ex lap with right hemicolectomy. -01/06 s/p exploratory laparotomy, Jejunal colonic anastomosis, Segmental small bowel resection. -s/p Vasopressor support with Levophed and vasopressin -Transitioned to HD from PD -HD per nephro, Epogen with HD -Strict NPO -TPN -Octreotide drip -NGT to LIWS -s/p IV antibiotics -Tobacco abuse cessation counseling -Trend CBC, BMP DVT/GI prophylaxis: PPI, heparin subcu, SCDs to bilateral lower extremities while in bed Disposition: IMCU History Interval history: This is a 60-year-old male with ESRD on peritoneal dialysis, Crohn's, hypertension, systolic CHF (EF 35%) who was admitted with sepsis, peritonitis, small bowel obstruction and now has gram-positive cocci bacteremia. Patient seen and examined, this morning no new complaints this morning except wanting to go home. Hospitalist Physical - Physical exam Narrative exam: General appearance: Present: no acute distress, Dry oropharyngeal area. - EENT Eyes: Present: PERRL ENT: poor dentition - Neck Neck: Absent: masses or JVD, cervical LAD - Respiratory Respiratory effort: normal Respiratory: bilateral: diminished - Cardiovascular Rhythm: irregularly irregular Heart Sounds: Present: S1 & S2. Absent: systolic murmur, diastolic murmur - Extremities Extremities: no ischemia, pulses intact, pulses symmetrical, No edema, normal temperature, normal color Peripheral Pulses: within normal limits - Abdominal General gastrointestinal: distended, abdomen dressing, rigid, w HARIS drain in place. Hypoactive bowel sounds. - Integumentary Integumentary: Present: Left chest permacath - Neurologic Neurologic: Awake alert oriented moves extremities, SPEECH IS NORMAL - Allied Health Allied health notes reviewed: nursing - Constitutional Vitals: Temp Pulse Resp BP Pulse Ox 98.5 F 62 16 145/66 99 01/20/21 03:54 01/20/21 07:00 01/20/21 07:00 01/20/21 07:00 01/20/21 07:00 General appearance: Present: no acute distress HEART Score - HEART Score Troponin: Troponin T 0.021 ng/mL (0.00-0.029) 12/22/20 14:38 Results - Labs CBC & Chem 7: 01/20/21 03:35 01/20/21 03:35 Labs: Laboratory Last Values WBC 12.0 K/mm3 (4.5-11.0) H 01/20/21 03:35 RBC 2.62 M/mm3 (3.65-5.03) L 01/20/21 03:35 Hgb 8.3 gm/dl (11.8-15.2) L 01/20/21 03:35 Hct 23.2 % (35.5-45.6) L 01/20/21 03:35 MCV 89 fl (84-94) 01/20/21 03:35 MCH 32 pg (28-32) 01/20/21 03:35 MCHC 36 % (32-34) H 01/20/21 03:35 RDW 15.2 % (13.2-15.2) 01/20/21 03:35 Plt Count 230 K/mm3 (140-440) 01/20/21 03:35 Lymph % (Auto) 4.4 % (13.4-35.0) L 01/13/21 03:45 [place] % (Auto) 10.3 % (0.0-7.3) H 01/13/21 03:45 Eos % (Auto) 0.9 % (0.0-4.3) 01/13/21 03:45 Baso % (Auto) 0.2 % (0.0-1.8) 01/13/21 03:45 Lymph # (Auto) 0.8 K/mm3 (1.2-5.4) L 01/13/21 03:45 [place] # (Auto) 1.8 K/mm3 (0.0-0.8) H 01/13/21 03:45 Eos # (Auto) 0.2 K/mm3 (0.0-0.4) 01/13/21 03:45 Baso # (Auto) 0.0 K/mm3 (0.0-0.1) 01/13/21 03:45 Add Manual Diff Complete 01/10/21 09:26 Total Counted 100 01/10/21 09:26 Seg Neutrophils % 84.2 % (40.0-70.0) H 01/13/21 03:45 Seg Neuts % (Manual) 95.0 % (40.0-70.0) H 01/10/21 09:26 Band Neutrophils % 1.0 % 01/10/21 09:26 Lymphocytes % (Manual) 3.0 % (13.4-35.0) L 01/10/21 09:26 Reactive Lymphs % (Man) 1.0 % 12/29/20 05:16 Monocytes % (Manual) 1.0 % (0.0-7.3) 01/10/21 09:26 Eosinophils % (Manual) 2.0 % (0.0-4.3) 12/29/20 05:16 Metamyelocytes % 2.0 % 12/29/20 05:16 Nucleated RBC % Not Reportable 01/10/21 09:26 Seg Neutrophils # 14.8 K/mm3 (1.8-7.7) H 01/13/21 03:45 Seg Neutrophils # Man 17.3 K/mm3 (1.8-7.7) H 01/10/21 09:26 Band Neutrophils # 0.2 K/mm3 01/10/21 09:26 Lymphocytes # (Manual) 0.5 K/mm3 (1.2-5.4) L 01/10/21 09:26 Abs React Lymphs (Man) 0.0 K/mm3 01/10/21 09:26 Monocytes # (Manual) 0.2 K/mm3 (0.0-0.8) 01/10/21 09:26 Eosinophils # (Manual) 0.0 K/mm3 (0.0-0.4) 01/10/21 09:26 Basophils # (Manual) 0.0 K/mm3 (0.0-0.1) 01/10/21 09:26 Metamyelocytes # 0.0 K/mm3 01/10/21 09:26 Myelocytes # 0.0 K/mm3 01/10/21 09:26 Promyelocytes # 0.0 K/mm3 01/10/21 09:26 Blast Cells # 0.0 K/mm3 01/10/21 09:26 WBC Morphology Not Reportable 01/10/21 09:26 Hypersegmented Neuts Not Reportable 01/10/21 09:26 Hyposegmented Neuts Not Reportable 01/10/21 09:26 Hypogranular Neuts Not Reportable 01/10/21 09:26 Smudge Cells Not Reportable 01/10/21 09:26 Toxic Granulation 1+ 01/10/21 09:26 Toxic Vacuolation Not Reportable 01/10/21 09:26 Dohle Bodies Not Reportable 01/10/21 09:26 Pelger-Huet Anomaly Not Reportable 01/10/21 09:26 Lamar Rods Not Reportable 01/10/21 09:26 Platelet Estimate Consistent w auto 01/10/21 09:26 Clumped Platelets Not Reportable 01/10/21 09:26 Plt Clumps, EDTA Not Reportable 01/10/21 09:26 Large Platelets Not Reportable 01/10/21 09:26 Giant Platelets Not Reportable 01/10/21 09:26 Platelet Satelliting Not Reportable 01/10/21 09:26 Plt Morphology Comment Not Reportable 01/10/21 09:26 RBC Morphology Not Reportable 01/10/21 09:26 Dimorphic RBCs Not Reportable 01/10/21 09:26 Polychromasia Not Reportable 01/10/21 09:26 Hypochromasia Not Reportable 01/10/21 09:26 Poikilocytosis Not Reportable 01/10/21 09:26 Anisocytosis 1+ 01/10/21 09:26 Microcytosis Not Reportable 01/10/21 09:26 Macrocytosis Not Reportable 01/10/21 09:26 Spherocytes Not Reportable 01/10/21 09:26 Pappenheimer Bodies Not Reportable 01/10/21 09:26 Sickle Cells Not Reportable 01/10/21 09:26 Target Cells Not Reportable 01/10/21 09:26 Tear Drop Cells Not Reportable 01/10/21 09:26 Ovalocytes Not Reportable 01/10/21 09:26 Helmet Cells Not Reportable 01/10/21 09:26 [place] Bodies Not Reportable 01/10/21 09:26 [place] Rings Not Reportable 01/10/21 09:26 Jenny Cells Not Reportable 01/10/21 09:26 Bite Cells Not Reportable 01/10/21 09:26 Crenated Cell Not Reportable 01/10/21 09:26 Elliptocytes Not Reportable 01/10/21 09:26 Acanthocytes (Spur) Not Reportable 01/10/21 09:26 Rouleaux Not Reportable 01/10/21 09:26 Hemoglobin C Crystals Not Reportable 01/10/21 09:26 Schistocytes Not Reportable 01/10/21 09:26 Malaria parasites Not Reportable 01/10/21 09:26 Lucas Bodies Not Reportable 01/10/21 09:26 Hem Pathologist Commnt No 01/10/21 09:26 PT 16.9 Sec. (12.2-14.9) H 01/01/21 12:45 INR 1.39 (0.87-1.13) H 01/01/21 12:45 APTT 25.1 Sec. (24.2-36.6) 12/22/20 14:38 ABG pH 7.345 pH Units (7.350-7.450) L 01/07/21 17:14 POC ABG pCO2 41.4 mmHg (32.0-48.0) 01/07/21 03:07 ABG pCO2 40.3 mm Hg 01/07/21 17:14 POC ABG pO2 94.5 mmHg (83-108) 01/07/21 03:07 ABG pO2 67.4 mm Hg (80.0-90.0) L 01/07/21 17:14 POC ABG HCO3 22.7 01/07/21 03:07 ABG HCO3 21.5 mmol/L (20.0-26.0) 01/07/21 17:14 ABG O2 Saturation 94.3 % (95.0-99.0) L 01/07/21 17:14 ABG O2 Content 11.6 (0.0-44) 01/07/21 17:14 POC ABG Base Excess -2.7 01/07/21 03:07 ABG Base Excess -3.9 mmol/L (-2.0-3.0) L 01/07/21 17:14 ABG Hemoglobin 8.9 gm/dl (14.0-18.0) L 01/07/21 17:14 ABG Oxyhemoglobin 96.6 (94-98) 01/07/21 03:07 ABG Carboxyhemoglobin 1.5 % (0.0-5.0) 01/07/21 17:14 ABG Methemoglobin 0.6 % (0.0-1.5) 01/07/21 17:14 ABG Sodium 135.6 mmol/L (136.0-145.0) L 01/07/21 03:07 ABG Potassium 4.0 mmol/L (3.40-4.50) 01/07/21 03:07 ABG Chloride 102.0 mmol/L (98-107) 01/07/21 03:07 ABG Glucose 181 mg/dL (65-95) H 01/07/21 03:07 Oxyhemoglobin 92.3 % (95.0-99.0) L 01/07/21 17:14 Carboxyhemoglobin 0.7 (0.5-1.5) 01/07/21 03:07 FiO2 21 % 01/07/21 17:14 FiO2 % 45.0 01/07/21 03:07 Sodium 138 mmol/L (137-145) 01/20/21 03:35 Potassium 4.4 mmol/L (3.6-5.0) 01/20/21 03:35 Chloride 102.2 mmol/L (98-107) 01/20/21 03:35 Carbon Dioxide 26 mmol/L (22-30) 01/20/21 03:35 Anion Gap 14 mmol/L 01/20/21 03:35 BUN 46 mg/dL (9-20) H 01/20/21 03:35 Creatinine 5.9 mg/dL (0.8-1.3) H 01/20/21 03:35 Estimated GFR 12 ml/min 01/20/21 03:35 BUN/Creatinine Ratio 8 % 01/20/21 03:35 Glucose 128 mg/dL (75-100) H 01/20/21 03:35 POC Glucose 119 mg/dL (70-105) H 01/20/21 06:19 Lactic Acid 1.10 mmol/L (0.7-2.0) 01/14/21 05:39 Calcium 8.8 mg/dL (8.4-10.2) 01/20/21 03:35 Phosphorus 4.70 mg/dL (2.5-4.5) H D 01/18/21 04:19 Magnesium 2.00 mg/dL (1.7-2.3) 01/18/21 04:19 Total Bilirubin 0.90 mg/dL (0.1-1.2) 01/08/21 04:34 AST 30 units/L (5-40) 01/08/21 04:34 ALT 29 units/L (7-56) 01/08/21 04:34 Alkaline Phosphatase 133 units/L (35-129) H 01/08/21 04:34 Ammonia 30.0 umol/L (25-60) 12/22/20 14:38 Troponin T 0.021 ng/mL (0.00-0.029) 12/22/20 14:38 Total Protein 5.4 g/dL (6.3-8.2) L 01/08/21 04:34 Albumin 1.9 g/dL (3.9-5) L 01/08/21 04:34 Albumin/Globulin Ratio 0.5 % 01/08/21 04:34 Triglycerides 73 mg/dL (2-149) 01/18/21 04:19 Lipase 41 units/L (13-60) 12/22/20 14:38 Procalcitonin > 200.00 ng/mL (<0.15) 12/24/20 15:06 TSH 1.470 mlU/mL (0.270-4.200) 12/28/20 19:44 Arterial Blood Glucose 181 mg/dL (65-95) H 01/07/21 03:07 Arterial Blood Ionized Calcium 4.3 mg/dL (4.6-5.3) L 01/07/21 03:07 Urine Color Yellow (Yellow) 12/22/20 18:53 Urine Turbidity Clear (Clear) 12/22/20 18:53 Urine pH 7.0 (5.0-7.0) 12/22/20 18:53 Ur Specific [place] 1.012 (1.003-1.030) 12/22/20 18:53 Urine Protein >500 mg/dL (Negative) 12/22/20 18:53 Urine Glucose (UA) Neg mg/dL (Negative) 12/22/20 18:53 Urine Ketones Neg mg/dL (Negative) 12/22/20 18:53 Urine Blood Neg (Negative) 12/22/20 18:53 Urine Nitrite Neg (Negative) 12/22/20 18:53 Urine Bilirubin Neg (Negative) 12/22/20 18:53 Urine Urobilinogen < 2.0 mg/dL (<2.0) 12/22/20 18:53 Ur Leukocyte Esterase Neg (Negative) 12/22/20 18:53 Urine WBC (Auto) < 1.0 /HPF (0.0-6.0) 12/22/20 18:53 Urine RBC (Auto) 1.0 /HPF (0.0-6.0) 12/22/20 18:53 Fluid Type Dialysate 12/22/20 Unknown Fluid Color Colorless 12/22/20 Unknown Fluid Appearance Cloudy 12/22/20 Unknown Fluid WBC 208 /mm3 12/22/20 Unknown Fluid RBC 45 /mm3 12/22/20 Unknown Fluid Seg Neutrophils 82.0 % 12/22/20 Unknown Fluid Lymphocytes 11.0 % 12/22/20 Unknown Fluid Reactive Lymphs 0 % 12/22/20 Unknown Fluid Monocytes 7.0 % 12/22/20 Unknown Fluid Eosinophils 0 % 12/22/20 Unknown Fluid Basophils 0 % 12/22/20 Unknown Random Vancomycin 13.7 ug/mL (0-40.0) 12/26/20 Unknown Digoxin 0.8 ng/mL (0.9-2.0) L 01/11/21 05:18 Hepatitis A IgM Ab Non-reactive (NonReactive) 12/23/20 11:38 Hep Bs Antigen Non-reactive (Negative) 12/23/20 11:38 Hep B Core IgM Ab Non-reactive (NonReactive) 12/23/20 11:38 Hepatitis C Antibody Non-reactive (NonReactive) 12/23/20 11:38 Blood Type A POSITIVE 01/06/21 07:10 Antibody Screen Negative 01/06/21 07:10 Crossmatch See Detail 01/06/21 07:10 Jeffery/IV: Voiding Method Self-Catheterization Active Medications - Current Medications Current Medications: Generic Name Dose Route Start Last Admin Trade Name Freq PRN Reason Stop Dose Admin Acetaminophen 650 mg 12/31/20 15:30 12/31/20 15:13 Acetaminophen 650 Mg Rect Supp [place] 650 mg Q6H PRN Administration Non Cardiac Pain or Temp>100.5 Clonidine HCl 0.2 mg 01/11/21 10:00 01/18/21 10:11 Clonidine Tts 0.2 Mg/24 Hr Patch TD 0.2 mg We THOMAS Administration Dextrose 50 ml 01/14/21 17:59 01/18/21 15:10 Dextrose 50% In Water (25gm) 50 Ml Syringe IV 20 ml Q30MIN PRN Administration Hypoglycemia Protocol Digoxin 0.125 mg 01/09/21 12:00 01/19/21 14:45 Digoxin 0.5 Mg/2 Ml Inj IV 0.125 mg Q48H THOMAS Administration Famotidine 10 mg 12/24/20 13:00 01/19/21 21:15 Famotidine 20 Mg/2 Ml Inj IV 10 mg BID THOMAS Administration Haloperidol Lactate 5 mg 12/29/20 14:16 01/19/21 22:14 Haloperidol Lactate 5 Mg/1 Ml Inj IV 5 mg Q12H PRN Administration Agitation Heparin Sodium (Porcine) 5,000 unit 12/24/20 10:00 01/19/21 21:17 Heparin 5,000 Unit/1 Ml Vial SUB-Q 5,000 unit Q12HR THOMAS Administration Hydralazine HCl 10 mg 01/10/21 14:00 01/20/21 05:47 Hydralazine 20 Mg/1 Ml Inj IV 10 mg Q4HR THOMAS Administration Hydromorphone HCl 0.25 mg 01/09/21 10:53 01/19/21 22:16 Hydromorphone 1 Mg/1 Ml Inj IV 0.25 mg Q6H PRN Administration Pain , Severe (7-10) Hydrophilic Ointment 1 applic 12/31/20 06:39 01/11/21 21:28 Lip Therapy Vaseline TP 1 applic Q2HR PRN Administration Dry Lips Octreotide Acetate 500 mcg/ 101 mls @ 5.05 mls/hr 01/13/21 11:00 01/20/21 03:08 Sodium Chloride IV 25 mcg/hr TITR THOMAS 5.05 mls/hr Administration Protocol 25 MCG/HR Piperacillin Sod/Tazobactam Sod 2.25 gm in 50 mls @ 100 mls/hr 01/13/21 12:00 01/20/21 03:00 Zosyn/Ns 2.25 Gm/50ml IV 01/24/21 20:29 100 mls/hr Q8H [facility] Administration Protocol Sodium Chloride 100 mls @ 999 mls/hr 01/19/21 09:30 Nacl 0.9% IV [place] PRN Hypotension Amino Acids/Electrolytes/Dextrose 2,016 mls @ 84 mls/hr 01/19/21 20:00 01/19/21 20:57 Tpn Adult IV 01/20/21 19:59 84 mls/hr DAILY@2000 [facility] Administration Protocol Insulin Glargine 5 units 01/18/21 22:00 01/19/21 21:17 Insulin Glargine 100 Units/Ml SUB-Q 5 units QHS [facility] Administration Insulin Human Lispro 0 unit 01/03/21 12:00 01/20/21 06:34 Insulin Lispro 100 Unit/Ml SUB-Q Not Given Q6HR [facility] Protocol Metoprolol Tartrate 5 mg 12/30/20 12:00 01/20/21 05:47 Metoprolol Tartrate 5 Mg/5 Ml Inj IV Not Given Q4HR [facility] Multi-Ingred Cream/Lotion/Oil/Oint 1 applic 12/31/20 06:39 Mineral Oil/Petrolatum, White Ophth Oint 3.5 Gm OU Q4HR PRN Dry Eye(s) Scopolamine 1 each 01/15/21 11:00 01/18/21 09:08 Scopolamine Transdermal Patch 72 Hr TD 1 each Q3D THOMAS Administration Sodium Chloride 10 ml 12/22/20 22:00 01/19/21 21:17 Sodium Chloride 0.9% 10 Ml Flush Syringe IV 10 ml BID THOMAS Administration Sodium Chloride 10 ml 12/22/20 19:42 01/09/21 17:27 Sodium Chloride 0.9% 10 Ml Flush Syringe IV 10 ml PRN PRN Administration LINE FLUSH Nutrition/Malnutrition Assess - Dietary Evaluation Nutrition/Malnutrition Findings: Nutrition Notes Start: 12/24/20 12:36 Freq: Status: Active Protocol: Document 01/20/21 07:42 (Rec: 01/20/21 07:48 [id number]) Nutrition Notes Initial or Follow up Reassessment Current Diagnosis CKD (stage V CKD),Sepsis, Hypertension,Heart Failure, Small Bowel Obstruction Other Pertinent Diagnosis Peritonitis, SBO s/p resection Current Diet CPN at 84 ml/hr Labs/Tests Reviewed Pertinent Medications Reviewed Height 5 ft 7 in Weight 81.9 kg [place] Body Weight (kg) 67.27 BMI 28.3 Weight Status Overweight Subjective/Other Information TPN day 26. Pt with NGT to LIS . Percent of energy/protein needs met: 100%/100% Burn Absent Trauma Absent Current % PO Negligible Minimum of two criteria No #2 Nutrition Diagnosis Increased nutrient needs ( specify in comment below) Diagnosis Progress(for reassessment Continues documentation) #1 Nutrition Diagnosis Inadequate oral intake Diagnosis Progress(for reassessment Continues documentation) Is patient on ventilator? No Is Patient Ambulatory and/or Out of Bed No REE-([facility]-confined to bed) 1898.124 Kcal/Kg value to use for calculation 20 Approximate Energy Requirements Using 1638 kcal/Kg Calculation Used for Recommendations Kcal/kg Additional Notes Pro needs: 101-121 g/day (1.25 -1.5 g/kg AdjBW, 81kg) Fluid needs per MD. Nutrition Intervention Change Diet Order: Continue CPN Nutrition Support: Continous CPN at 84 ml/hr. K 0 mEq, Ca 0 mEq MVI, Lipids Osmoality: Kcal 2,174 Protein (gm) 121 Carbohydrates (gm) 350 Fat (gm) 50 Fluid (mL) 2,266 Fiber (gm) 0 Goal #1 Meet at least 75% of estimated energy and protein needs via CPN Anticipated Discharge Needs: 24 hour TPN Follow-Up By: 01/21/21 Additional Comments Labs in AM: CMP, Mg, Phos
[2021-01-20] MEDS: FAMOTIDINE 20 MG/2 ML INJ IV SCH ×2 (09:52→23:08)
[2021-01-20] MEDS: HEPARIN 5,000 UNIT/1 ML VIAL SUB-Q SCH ×2 (09:53→23:08)
[2021-01-20] MEDS: diphenhydrAMINE 50 MG/ML VIAL IV PRN ×2 (10:18→21:25)
--- NOTE | 2021-01-20 12:03 | Progress Note ---
Assessment and Plan Paroxysmal atrial fibrillation currently, he is sinus rhythm on telemetry Hx of nonischemic cardiomyopathy, resolving LVEF 50-55% by echo this presentation Small bowl obstruction status post emergency exploratory laparotomy for anastomotic leak status post exploratory laparotomy s/p ex lap, resection of perforated anastamosis, washout and abthera wound vac placement ESRD now on HD Anemia s/p PRBCs Patient remains on NPO status. Will continue intravenous digoxin, and intravenous metoprolol for paroxysmal atrial fibrillation. Patient is not a candidate for anticoagulation at this time due to his postoperative status and the presence of severe anemia. Otherwise, conservative cardiac management. Subjective Date of service: 01/20/21 Principal diagnosis: Ac hypoxemic resp failure; Severe Sepsis; Peritonitis; Acute SBO; ESRD; CHF Interval history: Patient is resting in bed and appears comfortable. Sinus rhythm on telemetry. Objective Vital Signs Temp Pulse Pulse Resp Resp BP Pulse Ox 01/20/21 11:00 60 17 150/71 97 01/20/21 10:00 58 L 19 145/67 96 01/20/21 09:53 59 L 138/68 01/20/21 09:52 59 L 138/68 01/20/21 09:00 56 L 12 138/68 100 01/20/21 08:00 97.7 F 60 20 143/63 99 01/20/21 07:00 62 16 145/66 99 01/20/21 06:00 60 17 145/66 97 01/20/21 05:47 58 L 142/79 01/20/21 05:00 59 L 27 H 142/79 98 01/20/21 04:10 56 L 01/20/21 04:00 55 L 19 150/69 94 01/20/21 03:54 98.5 F 01/20/21 03:00 55 L 15 136/65 95 01/20/21 02:58 54 L 136/68 01/20/21 02:00 55 L 13 136/68 99 01/20/21 01:00 59 L 59 L 16 141/69 96 01/20/21 00:00 57 L 13 117/56 97 01/19/21 23:40 55 L 01/19/21 23:39 98.8 F 01/19/21 23:34 56 L 16 127/63 100 01/19/21 23:00 60 17 127/63 98 01/19/21 22:46 16 01/19/21 22:16 16 01/19/21 22:08 55 L 01/19/21 22:00 55 L 14 139/64 97 01/19/21 21:40 60 16 99 01/19/21 21:36 16 01/19/21 21:16 60 139/68 01/19/21 21:00 55 L 17 139/68 97 01/19/21 20:00 99.1 F 55 L 12 131/57 100 01/19/21 19:45 52 L 01/19/21 19:00 56 L 16 123/55 98 01/19/21 18:17 60 121/57 01/19/21 18:00 60 15 114/60 97 01/19/21 17:00 60 14 136/55 97 01/19/21 16:39 16 01/19/21 16:00 97.9 F 61 15 125/59 98 01/19/21 15:00 59 L 18 128/50 98 01/19/21 14:10 98.2 F 65 19 136/66 01/19/21 14:00 66 19 137/68 100 01/19/21 13:45 70 128/70 01/19/21 13:30 74 117/68 01/19/21 13:15 64 130/63 01/19/21 13:00 76 18 130/63 98 01/19/21 12:45 74 141/63 01/19/21 12:30 79 135/58 01/19/21 12:15 73 142/69 - Physical Examination General: No Apparent Distress HEENT: Positive: PERRL Cardiac: Positive: Reg Rate and Rhythm Abdomen: Positive: Other (post op) Extremities: Absent: edema - Labs and Meds CBC 01/20/21 Range/Units 03:35 WBC 12.0 H (4.5-11.0) K/mm3 RBC 2.62 L (3.65-5.03) M/mm3 Hgb 8.3 L (11.8-15.2) gm/dl Hct 23.2 L (35.5-45.6) % Plt Count 230 (140-440) K/mm3 Comprehensive Metabolic Panel 01/20/21 Range/Units 03:35 Sodium 138 (137-145) mmol/L Potassium 4.4 (3.6-5.0) mmol/L Chloride 102.2 (98-107) mmol/L Carbon Dioxide 26 (22-30) mmol/L BUN 46 H (9-20) mg/dL Creatinine 5.9 H (0.8-1.3) mg/dL Glucose 128 H (75-100) mg/dL Calcium 8.8 (8.4-10.2) mg/dL - Allied health notes Allied health notes reviewed: nursing
--- NOTE | 2021-01-20 12:16 | Progress Note ---
Assessment and Plan POD#27 s/p ex lap with extensive lysis of adhesions and two small bowel resections with primary anastamosis for SBO with necrotic segment small bowel. POD#18 s/p ex lap, resection of perforated anastamosis, washout and abthera wound vac placement. POD#16 s/p ex lap with right hemicolectomy. POD#14 s/p ex lap, with jejunal-colonic anastamosis and closure of abdomen. Afebrile and stable. - concerned about a leak at his anastamosis. Clinically improved with decreased output that is becoming more serous. Blood supply was evaluated at time of last surgery with ICG and found to be adequate. Pt was on several days of steroids for tongue swelling which may have contributed to leak. Currently since he is stable and afebrile will treat like controlled fistua. He is extremely high risk for additional surgery with tissues that are extremely friable and previous scar tissue that makes his anatomy very difficult to manipulate. Will continue octreotide drip to try to slow down GI output. If he requires operative intervention will likely need to be left in discontinuity and eventual ileostomy as he has already failed two anastamoses. Continue HARIS drain suction with and NGT deccompression. Strict NPO except for small amount of ice chips. HARIS drain must be secured and kept in place. No interval change in management at time. If output is below 100ml per 24 hours for several days will switch from octreotide drip, will switch to daily scheduled dosing and continue to evaluate output. Prognosis is gaurded. Subjective Date of service: 01/20/21 Narrative: no acute events overnight Objective Vital Signs - 12hr 01/20/21 01/20/21 01/20/21 01:00 02:00 02:58 Temperature Pulse Rate 59 L 55 L 54 L Pulse Rate [ 59 L From Monitor] Respiratory 16 13 Rate Blood Pressure 141/69 136/68 136/68 O2 Sat by Pulse 96 99 Oximetry 01/20/21 01/20/21 01/20/21 03:00 03:54 04:00 Temperature 98.5 F Pulse Rate 55 L 55 L Pulse Rate [ From Monitor] Respiratory 15 19 Rate Blood Pressure 136/65 150/69 O2 Sat by Pulse 95 94 Oximetry 01/20/21 01/20/21 01/20/21 04:10 05:00 05:47 Temperature Pulse Rate 56 L 59 L 58 L Pulse Rate [ From Monitor] Respiratory 27 H Rate Blood Pressure 142/79 142/79 O2 Sat by Pulse 98 Oximetry 01/20/21 01/20/21 01/20/21 06:00 07:00 08:00 Temperature 97.7 F Pulse Rate 60 62 60 Pulse Rate [ From Monitor] Respiratory 17 16 20 Rate Blood Pressure 145/66 145/66 143/63 O2 Sat by Pulse 97 99 99 Oximetry 01/20/21 01/20/21 01/20/21 09:00 09:52 09:53 Temperature Pulse Rate 56 L 59 L 59 L Pulse Rate [ From Monitor] Respiratory 12 Rate Blood Pressure 138/68 138/68 138/68 O2 Sat by Pulse 100 Oximetry 01/20/21 01/20/21 10:00 11:00 Temperature Pulse Rate 58 L 60 Pulse Rate [ From Monitor] Respiratory 19 17 Rate Blood Pressure 145/67 150/71 O2 Sat by Pulse 96 97 Oximetry - General physical appearance well developed, no distress, no pain - Respiratory normal expansion, normal respiratory effort - Abdomen soft, not tender, other (HARIS drain bilious 65ml recorded last 24 hours, NGT bilious, wound vac SS scant) - Labs 01/20/21 03:35 01/20/21 03:35 Diabetes panel 01/20/21 Range/Units 03:35 Sodium 138 (137-145) mmol/L Potassium 4.4 (3.6-5.0) mmol/L Chloride 102.2 (98-107) mmol/L Carbon Dioxide 26 (22-30) mmol/L BUN 46 H (9-20) mg/dL Creatinine 5.9 H (0.8-1.3) mg/dL Glucose 128 H (75-100) mg/dL Calcium 8.8 (8.4-10.2) mg/dL Calcium panel 01/20/21 Range/Units 03:35 Calcium 8.8 (8.4-10.2) mg/dL Pituitary panel 01/20/21 Range/Units 03:35 Sodium 138 (137-145) mmol/L Potassium 4.4 (3.6-5.0) mmol/L Chloride 102.2 (98-107) mmol/L Carbon Dioxide 26 (22-30) mmol/L BUN 46 H (9-20) mg/dL Creatinine 5.9 H (0.8-1.3) mg/dL Glucose 128 H (75-100) mg/dL Calcium 8.8 (8.4-10.2) mg/dL Adrenal panel 01/20/21 Range/Units 03:35 Sodium 138 (137-145) mmol/L Potassium 4.4 (3.6-5.0) mmol/L Chloride 102.2 (98-107) mmol/L Carbon Dioxide 26 (22-30) mmol/L BUN 46 H (9-20) mg/dL Creatinine 5.9 H (0.8-1.3) mg/dL Glucose 128 H (75-100) mg/dL Calcium 8.8 (8.4-10.2) mg/dL
--- NOTE | 2021-01-20 12:27 | Progress Note ---
Assessment and Plan Acute hypoxemic respiratory failure, s/p mechanical ventilatory support. Severe Sepsis with septic shock, resolved Peritonitis Acute small-bowel obstruction with tissue necrosis. End-stage renal disease, on dialysis. Hypertension. Crohn's disease. Gastroesophageal reflux disease. Heart failure with reduced ejection fraction. Hyperkalemia. Anemia that is normocytic. Lactic acidosis. Oropharyngeal dysphagia -Surgical recommendation of strict n.p.o. except for small amount of ice as patient has already failed to anastomosis and he is at risk for additional surgery with tissues were extremely friable from previous scar. He continues on octreotide drip to slow down GI output HARIS drain remains in place with NG suction for decompression. -Continue IV Zosyn, plan to stop at 3 weeks from last surgery end date: 01/24/2021 -Continue TPN. - continue to titrate supplemental oxygen for target SpO2 89-92% - continue bronchodilators with pulmonary hygiene per RT - HD/UF per nephrology prescription for toxin and volume control - avoid nephrotoxins, renally dose all medications - continue accuchecks with glycemic control per SSI (Target blood glucose of 140-180 mg/dL; avoid hypoglycemia) - continue to avoid benzodiazepines, reduce the possibility of delirium - prn analgesia per CPOT score - Maintenance of sleep-wake cycle, avoid delirium - Stress ulcer and VTE prophylaxis - continue mobility protocols for pressure ulcer prophylaxis - Monitor hemodynamics closely - continue other care per attending / other consultants CONDITION: FAIR PROGNOSIS: GUARDED CODE STATUS: FULL CODE Subjective Date of service: 01/20/21 Principal diagnosis: Ac hypoxemic resp failure; Severe Sepsis; Peritonitis; Acute SBO; ESRD; CHF Interval history: Patient is seen today for: Ac hypoxemic resp failure; Severe Sepsis; Peritonitis; Acute SBO; ESRD on Dialysis; HTN; Crohn's disease; HFrEF Seen and examined at bedside; 24hour events reviewed; nursing and respiratory care staff consulted; no adverse overnight events reported to me; resting in bed; remains on supplemental oxygen; asking for food and wants to go home. He denies any chest pain, no shortness of breath, no fevers or chills. Objective Vital Signs - 12hr 01/20/21 01/20/21 01/20/21 01:00 02:00 02:58 Temperature Pulse Rate 59 L 55 L 54 L Pulse Rate [ 59 L From Monitor] Respiratory 16 13 Rate Blood Pressure 141/69 136/68 136/68 O2 Sat by Pulse 96 99 Oximetry 01/20/21 01/20/21 01/20/21 03:00 03:54 04:00 Temperature 98.5 F Pulse Rate 55 L 55 L Pulse Rate [ From Monitor] Respiratory 15 19 Rate Blood Pressure 136/65 150/69 O2 Sat by Pulse 95 94 Oximetry 01/20/21 01/20/21 01/20/21 04:10 05:00 05:47 Temperature Pulse Rate 56 L 59 L 58 L Pulse Rate [ From Monitor] Respiratory 27 H Rate Blood Pressure 142/79 142/79 O2 Sat by Pulse 98 Oximetry 01/20/21 01/20/21 01/20/21 06:00 07:00 08:00 Temperature 97.7 F Pulse Rate 60 62 60 Pulse Rate [ From Monitor] Respiratory 17 16 20 Rate Blood Pressure 145/66 145/66 143/63 O2 Sat by Pulse 97 99 99 Oximetry 01/20/21 01/20/21 01/20/21 09:00 09:52 09:53 Temperature Pulse Rate 56 L 59 L 59 L Pulse Rate [ From Monitor] Respiratory 12 Rate Blood Pressure 138/68 138/68 138/68 O2 Sat by Pulse 100 Oximetry 01/20/21 01/20/21 10:00 11:00 Temperature Pulse Rate 58 L 60 Pulse Rate [ From Monitor] Respiratory 19 17 Rate Blood Pressure 145/67 150/71 O2 Sat by Pulse 96 97 Oximetry Constitutional: no acute distress, other (elderly male with normal respiratory effort at rest) Eyes: non-icteric ENT: oropharynx dry, oropharyngeal exudate pre Neck: supple, no lymphadenopathy, no JVD Effort: normal Ascultation: Bilateral: diminished breath sounds, rhonchi Cardiovascular: regular rate and rhythm, other (S1,S2) Gastrointestinal: hypoactive bowel sounds, soft, non-tender, non-distended (protuberant), other (Midline abdominal incision ) Integumentary: other (Midline abdominal incision ) Extremities: no cyanosis, no edema, pulses normal, no ischemia or petechiae Neurologic: non-focal exam (grossly), pupils equal and round, CN II-XII normal Psychiatric: mood appropriate, affect normal CBC and BMP: 01/20/21 03:35 01/20/21 03:35 ABG, PT/INR, D-dimer: ABG ABG pH 7.345 pH Units (7.350-7.450) L 01/07/21 17:14 POC ABG pCO2 41.4 mmHg (32.0-48.0) 01/07/21 03:07 ABG pCO2 40.3 mm Hg 01/07/21 17:14 POC ABG pO2 94.5 mmHg (83-108) 01/07/21 03:07 ABG pO2 67.4 mm Hg (80.0-90.0) L 01/07/21 17:14 POC ABG HCO3 22.7 01/07/21 03:07 ABG O2 Saturation 94.3 % (95.0-99.0) L 01/07/21 17:14 PT/INR, D-dimer PT 16.9 Sec. (12.2-14.9) H 01/01/21 12:45 INR 1.39 (0.87-1.13) H 01/01/21 12:45 Abnormal lab findings: Abnormal Labs 12/22/20 12/22/20 12/22/20 14:38 14:38 14:38 WBC RBC Hgb 11.2 L Hct 35.0 L MCV MCHC RDW 16.7 H Plt Count Lymph % (Auto) [place] % (Auto) Lymph # (Auto) [place] # (Auto) Seg Neutrophils % Seg Neuts % (Manual) 94.0 H Lymphocytes % (Manual) 5.0 L Monocytes % (Manual) Seg Neutrophils # Seg Neutrophils # Man Lymphocytes # (Manual) 0.3 L Monocytes # (Manual) PT INR ABG pH POC ABG pCO2 POC ABG pO2 ABG pO2 ABG HCO3 ABG O2 Saturation ABG Base Excess ABG Hemoglobin ABG Oxyhemoglobin ABG Sodium ABG Potassium ABG Chloride ABG Glucose Oxyhemoglobin Sodium Potassium Chloride Carbon Dioxide BUN 58 H Creatinine 13.2 H Glucose 113 H POC Glucose Lactic Acid 3.60 H* Calcium Phosphorus Magnesium Total Bilirubin 1.30 H AST ALT Alkaline Phosphatase 155 H Total Protein Albumin Triglycerides Arterial Blood Glucose Arterial Blood Ionized Calcium Digoxin Crossmatch 12/22/20 12/22/20 12/23/20 16:26 17:47 05:22 WBC RBC Hgb Hct MCV MCHC RDW Plt Count Lymph % (Auto) [place] % (Auto) Lymph # (Auto) [place] # (Auto) Seg Neutrophils % Seg Neuts % (Manual) Lymphocytes % (Manual) Monocytes % (Manual) Seg Neutrophils # Seg Neutrophils # Man Lymphocytes # (Manual) Monocytes # (Manual) PT INR ABG pH POC ABG pCO2 POC ABG pO2 ABG pO2 ABG HCO3 ABG O2 Saturation ABG Base Excess ABG Hemoglobin ABG Oxyhemoglobin ABG Sodium ABG Potassium ABG Chloride ABG Glucose Oxyhemoglobin Sodium Potassium Chloride Carbon Dioxide BUN Creatinine Glucose POC Glucose Lactic Acid 2.80 H* 3.10 H* 2.30 H* Calcium Phosphorus Magnesium Total Bilirubin AST ALT Alkaline Phosphatase Total Protein Albumin Triglycerides Arterial Blood Glucose Arterial Blood Ionized Calcium Digoxin Crossmatch 12/23/20 12/23/20 12/23/20 05:22 05:22 06:35 WBC 12.1 H RBC Hgb 11.0 L Hct 33.7 L MCV MCHC RDW 16.9 H Plt Count Lymph % (Auto) [place] % (Auto) Lymph # (Auto) [place] # (Auto) Seg Neutrophils % Seg Neuts % (Manual) 93.0 H Lymphocytes % (Manual) 1.0 L Monocytes % (Manual) Seg Neutrophils # Seg Neutrophils # Man 11.3 H Lymphocytes # (Manual) 0.1 L Monocytes # (Manual) PT INR ABG pH POC ABG pCO2 POC ABG pO2 ABG pO2 ABG HCO3 ABG O2 Saturation ABG Base Excess ABG Hemoglobin ABG Oxyhemoglobin ABG Sodium ABG Potassium ABG Chloride ABG Glucose Oxyhemoglobin Sodium Potassium 5.7 H D Chloride Carbon Dioxide BUN 73 H Creatinine 14.2 H Glucose POC Glucose Lactic Acid 2.30 H* Calcium 7.9 L Phosphorus Magnesium Total Bilirubin 1.40 H AST 119 H ALT 130 H Alkaline Phosphatase 183 H Total Protein 6.1 L Albumin 3.6 L Triglycerides Arterial Blood Glucose Arterial Blood Ionized Calcium Digoxin Crossmatch 12/23/20 12/23/20 12/23/20 11:40 13:53 16:47 WBC RBC Hgb 10.0 L Hct 30.4 L MCV MCHC RDW Plt Count Lymph % (Auto) [place] % (Auto) Lymph # (Auto) [place] # (Auto) Seg Neutrophils % Seg Neuts % (Manual) Lymphocytes % (Manual) Monocytes % (Manual) Seg Neutrophils # Seg Neutrophils # Man Lymphocytes # (Manual) Monocytes # (Manual) PT INR ABG pH POC ABG pCO2 POC ABG pO2 137.5 H ABG pO2 ABG HCO3 ABG O2 Saturation ABG Base Excess ABG Hemoglobin 9.7 L ABG Oxyhemoglobin ABG Sodium 134.1 L ABG Potassium 6.6 H ABG Chloride ABG Glucose 103 H Oxyhemoglobin Sodium Potassium Chloride Carbon Dioxide BUN Creatinine Glucose POC Glucose Lactic Acid Calcium Phosphorus Magnesium Total Bilirubin AST ALT Alkaline Phosphatase Total Protein Albumin Triglycerides Arterial Blood Glucose 103 H Arterial Blood Ionized Calcium 3.8 L Digoxin Crossmatch See Detail 12/23/20 12/23/20 12/24/20 20:35 20:40 01:20 WBC RBC Hgb Hct MCV MCHC RDW Plt Count Lymph % (Auto) [place] % (Auto) Lymph # (Auto) [place] # (Auto) Seg Neutrophils % Seg Neuts % (Manual) Lymphocytes % (Manual) Monocytes % (Manual) Seg Neutrophils # Seg Neutrophils # Man Lymphocytes # (Manual) Monocytes # (Manual) PT INR ABG pH 7.252 L POC ABG pCO2 POC ABG pO2 ABG pO2 50.1 L ABG HCO3 ABG O2 Saturation 81.1 L ABG Base Excess -5.9 L ABG Hemoglobin 12.1 L ABG Oxyhemoglobin ABG Sodium ABG Potassium ABG Chloride ABG Glucose Oxyhemoglobin 78.6 L Sodium 134 L Potassium 6.9 H* D 6.3 H* Chloride Carbon Dioxide 18 L 20 L BUN 87 H 91 H Creatinine 15.3 H 15.3 H Glucose 103 H POC Glucose Lactic Acid Calcium 6.9 L 7.5 L Phosphorus Magnesium Total Bilirubin AST ALT Alkaline Phosphatase Total Protein Albumin Triglycerides Arterial Blood Glucose Arterial Blood Ionized Calcium Digoxin Crossmatch 12/24/20 12/24/20 12/24/20 04:00 10:29 10:29 WBC RBC 3.49 L Hgb 10.5 L Hct 31.2 L MCV MCHC RDW 17.5 H Plt Count 124 L Lymph % (Auto) 3.7 L [place] % (Auto) 9.8 H Lymph # (Auto) 0.2 L [place] # (Auto) Seg Neutrophils % 85.9 H Seg Neuts % (Manual) Lymphocytes % (Manual) Monocytes % (Manual) Seg Neutrophils # Seg Neutrophils # Man Lymphocytes # (Manual) Monocytes # (Manual) PT INR ABG pH POC ABG pCO2 28.1 L POC ABG pO2 ABG pO2 ABG HCO3 ABG O2 Saturation ABG Base Excess ABG Hemoglobin ABG Oxyhemoglobin ABG Sodium 133.9 L ABG Potassium 5.3 H ABG Chloride 108.0 H ABG Glucose Oxyhemoglobin Sodium Potassium 5.6 H Chloride Carbon Dioxide 19 L BUN 99 H Creatinine 16.9 H Glucose 52 L POC Glucose Lactic Acid Calcium 7.6 L Phosphorus Magnesium Total Bilirubin 3.50 H AST 67 H ALT 71 H Alkaline Phosphatase Total Protein 3.5 L D Albumin 2.1 L Triglycerides Arterial Blood Glucose Arterial Blood Ionized Calcium 4.0 L Digoxin Crossmatch 12/25/20 12/25/20 12/25/20 03:33 04:00 04:00 WBC 3.8 L RBC 2.90 L Hgb 8.6 L Hct 25.7 L MCV MCHC RDW 16.7 H Plt Count 113 L Lymph % (Auto) [place] % (Auto) Lymph # (Auto) [place] # (Auto) Seg Neutrophils % Seg Neuts % (Manual) Lymphocytes % (Manual) Monocytes % (Manual) Seg Neutrophils # Seg Neutrophils # Man Lymphocytes # (Manual) Monocytes # (Manual) PT INR ABG pH 7.544 H POC ABG pCO2 28.2 L POC ABG pO2 62.8 L ABG pO2 ABG HCO3 ABG O2 Saturation ABG Base Excess ABG Hemoglobin 9.3 L ABG Oxyhemoglobin 93.0 L ABG Sodium 130.3 L ABG Potassium ABG Chloride ABG Glucose 97 H Oxyhemoglobin Sodium Potassium Chloride Carbon Dioxide BUN 62 H Creatinine 11.4 H Glucose POC Glucose Lactic Acid Calcium 7.7 L Phosphorus 5.00 H Magnesium Total Bilirubin AST ALT Alkaline Phosphatase Total Protein Albumin Triglycerides Arterial Blood Glucose 97 H Arterial Blood Ionized Calcium 3.9 L Digoxin Crossmatch 12/26/20 12/26/20 12/27/20 04:46 Unknown 03:40 WBC 4.1 L RBC 2.61 L Hgb 7.8 L Hct 23.4 L MCV MCHC RDW 17.1 H Plt Count 119 L Lymph % (Auto) 5.3 L [place] % (Auto) 10.6 H Lymph # (Auto) 0.2 L [place] # (Auto) Seg Neutrophils % 78.8 H Seg Neuts % (Manual) Lymphocytes % (Manual) Monocytes % (Manual) Seg Neutrophils # Seg Neutrophils # Man Lymphocytes # (Manual) Monocytes # (Manual) PT INR ABG pH 7.333 L 7.332 L POC ABG pCO2 POC ABG pO2 ABG pO2 ABG HCO3 26.9 H ABG O2 Saturation ABG Base Excess -2.4 L ABG Hemoglobin 6.8 L 7.2 L ABG Oxyhemoglobin ABG Sodium ABG Potassium ABG Chloride ABG Glucose Oxyhemoglobin 93.0 L 93.1 L Sodium Potassium Chloride Carbon Dioxide BUN Creatinine Glucose POC Glucose Lactic Acid Calcium Phosphorus Magnesium Total Bilirubin AST ALT Alkaline Phosphatase Total Protein Albumin Triglycerides Arterial Blood Glucose Arterial Blood Ionized Calcium Digoxin Crossmatch 12/27/20 12/27/20 12/27/20 06:40 06:40 11:22 WBC 4.4 L RBC 2.49 L Hgb 7.4 L Hct 22.4 L MCV MCHC RDW 17.1 H Plt Count 111 L Lymph % (Auto) 6.7 L [place] % (Auto) 12.6 H Lymph # (Auto) 0.3 L [place] # (Auto) Seg Neutrophils % 77.6 H Seg Neuts % (Manual) Lymphocytes % (Manual) Monocytes % (Manual) Seg Neutrophils # Seg Neutrophils # Man Lymphocytes # (Manual) Monocytes # (Manual) PT INR ABG pH POC ABG pCO2 POC ABG pO2 ABG pO2 ABG HCO3 ABG O2 Saturation ABG Base Excess ABG Hemoglobin ABG Oxyhemoglobin ABG Sodium ABG Potassium ABG Chloride ABG Glucose Oxyhemoglobin Sodium Potassium Chloride Carbon Dioxide BUN 64 H Creatinine 9.8 H Glucose 147 H POC Glucose 134 H Lactic Acid Calcium 8.3 L Phosphorus 5.00 H Magnesium Total Bilirubin 3.70 H AST 72 H ALT Alkaline Phosphatase 142 H Total Protein 5.1 L D Albumin 2.9 L Triglycerides Arterial Blood Glucose Arterial Blood Ionized Calcium Digoxin Crossmatch 12/27/20 12/27/20 12/28/20 17:29 23:31 03:09 WBC RBC Hgb Hct MCV MCHC RDW Plt Count Lymph % (Auto) [place] % (Auto) Lymph # (Auto) [place] # (Auto) Seg Neutrophils % Seg Neuts % (Manual) Lymphocytes % (Manual) Monocytes % (Manual) Seg Neutrophils # Seg Neutrophils # Man Lymphocytes # (Manual) Monocytes # (Manual) PT INR ABG pH 7.474 H POC ABG pCO2 POC ABG pO2 ABG pO2 ABG HCO3 ABG O2 Saturation ABG Base Excess ABG Hemoglobin 7.8 L ABG Oxyhemoglobin ABG Sodium ABG Potassium ABG Chloride ABG Glucose Oxyhemoglobin Sodium Potassium Chloride Carbon Dioxide BUN Creatinine Glucose POC Glucose 121 H 131 H Lactic Acid Calcium Phosphorus Magnesium Total Bilirubin AST ALT Alkaline Phosphatase Total Protein Albumin Triglycerides Arterial Blood Glucose Arterial Blood Ionized Calcium Digoxin Crossmatch 12/28/20 12/28/20 12/28/20 05:37 05:40 05:40 WBC 4.3 L RBC 2.40 L Hgb 7.2 L Hct 21.5 L MCV MCHC RDW 17.4 H Plt Count 112 L Lymph % (Auto) 6.5 L [place] % (Auto) 16.7 H Lymph # (Auto) 0.3 L [place] # (Auto) Seg Neutrophils % 71.1 H Seg Neuts % (Manual) Lymphocytes % (Manual) Monocytes % (Manual) Seg Neutrophils # Seg Neutrophils # Man Lymphocytes # (Manual) Monocytes # (Manual) PT INR ABG pH POC ABG pCO2 POC ABG pO2 ABG pO2 ABG HCO3 ABG O2 Saturation ABG Base Excess ABG Hemoglobin ABG Oxyhemoglobin ABG Sodium ABG Potassium ABG Chloride ABG Glucose Oxyhemoglobin Sodium Potassium Chloride Carbon Dioxide BUN 85 H Creatinine 11.5 H Glucose 132 H POC Glucose 121 H Lactic Acid Calcium 8.2 L Phosphorus Magnesium 2.40 H Total Bilirubin 3.80 H AST 70 H ALT Alkaline Phosphatase 176 H Total Protein 5.0 L Albumin 2.9 L Triglycerides Arterial Blood Glucose Arterial Blood Ionized Calcium Digoxin Crossmatch 12/28/20 12/28/20 12/28/20 11:34 15:00 17:35 WBC RBC Hgb Hct MCV MCHC RDW Plt Count Lymph % (Auto) [place] % (Auto) Lymph # (Auto) [place] # (Auto) Seg Neutrophils % Seg Neuts % (Manual) Lymphocytes % (Manual) Monocytes % (Manual) Seg Neutrophils # Seg Neutrophils # Man Lymphocytes # (Manual) Monocytes # (Manual) PT INR ABG pH 7.461 H POC ABG pCO2 POC ABG pO2 72.2 L ABG pO2 ABG HCO3 ABG O2 Saturation ABG Base Excess ABG Hemoglobin 8.2 L ABG Oxyhemoglobin 93.6 L ABG Sodium 134.1 L ABG Potassium 3.2 L ABG Chloride ABG Glucose 135 H Oxyhemoglobin Sodium Potassium Chloride Carbon Dioxide BUN Creatinine Glucose POC Glucose 137 H 144 H Lactic Acid Calcium Phosphorus Magnesium Total Bilirubin AST ALT Alkaline Phosphatase Total Protein Albumin Triglycerides Arterial Blood Glucose 135 H Arterial Blood Ionized Calcium 4.4 L Digoxin Crossmatch 12/28/20 12/28/20 12/29/20 19:44 Unknown 00:21 WBC RBC Hgb Hct MCV MCHC RDW Plt Count Lymph % (Auto) [place] % (Auto) Lymph # (Auto) [place] # (Auto) Seg Neutrophils % Seg Neuts % (Manual) Lymphocytes % (Manual) Monocytes % (Manual) Seg Neutrophils # Seg Neutrophils # Man Lymphocytes # (Manual) Monocytes # (Manual) PT INR ABG pH 7.474 H POC ABG pCO2 POC ABG pO2 ABG pO2 ABG HCO3 ABG O2 Saturation ABG Base Excess ABG Hemoglobin 7.8 L ABG Oxyhemoglobin ABG Sodium 133.2 L ABG Potassium ABG Chloride ABG Glucose 139 H Oxyhemoglobin Sodium 135 L Potassium Chloride 96.6 L Carbon Dioxide BUN 47 H Creatinine 7.4 H Glucose 130 H POC Glucose 142 H Lactic Acid Calcium 8.3 L Phosphorus Magnesium Total Bilirubin AST ALT Alkaline Phosphatase Total Protein Albumin Triglycerides Arterial Blood Glucose 139 H Arterial Blood Ionized Calcium 4.3 L Digoxin Crossmatch 12/29/20 12/29/20 12/29/20 05:16 05:16 05:26 WBC RBC 2.53 L Hgb 7.7 L Hct 22.8 L MCV MCHC RDW 17.0 H Plt Count 130 L Lymph % (Auto) [place] % (Auto) Lymph # (Auto) [place] # (Auto) Seg Neutrophils % Seg Neuts % (Manual) 79.0 H Lymphocytes % (Manual) 9.0 L Monocytes % (Manual) Seg Neutrophils # Seg Neutrophils # Man Lymphocytes # (Manual) 0.6 L Monocytes # (Manual) PT INR ABG pH POC ABG pCO2 POC ABG pO2 ABG pO2 ABG HCO3 ABG O2 Saturation ABG Base Excess ABG Hemoglobin ABG Oxyhemoglobin ABG Sodium ABG Potassium ABG Chloride ABG Glucose Oxyhemoglobin Sodium Potassium 3.4 L Chloride 96.6 L Carbon Dioxide BUN 59 H Creatinine 8.3 H Glucose 127 H POC Glucose 141 H Lactic Acid Calcium 8.2 L Phosphorus Magnesium Total Bilirubin 3.00 H AST 88 H ALT Alkaline Phosphatase 188 H Total Protein 5.1 L Albumin 2.8 L Triglycerides Arterial Blood Glucose Arterial Blood Ionized Calcium Digoxin Crossmatch 12/29/20 12/29/20 12/29/20 11:33 17:29 23:22 WBC RBC Hgb Hct MCV MCHC RDW Plt Count Lymph % (Auto) [place] % (Auto) Lymph # (Auto) [place] # (Auto) Seg Neutrophils % Seg Neuts % (Manual) Lymphocytes % (Manual) Monocytes % (Manual) Seg Neutrophils # Seg Neutrophils # Man Lymphocytes # (Manual) Monocytes # (Manual) PT INR ABG pH POC ABG pCO2 POC ABG pO2 ABG pO2 ABG HCO3 ABG O2 Saturation ABG Base Excess ABG Hemoglobin ABG Oxyhemoglobin ABG Sodium ABG Potassium ABG Chloride ABG Glucose Oxyhemoglobin Sodium Potassium Chloride Carbon Dioxide BUN Creatinine Glucose POC Glucose 144 H 130 H 117 H Lactic Acid Calcium Phosphorus Magnesium Total Bilirubin AST ALT Alkaline Phosphatase Total Protein Albumin Triglycerides Arterial Blood Glucose Arterial Blood Ionized Calcium Digoxin Crossmatch 12/30/20 12/30/20 12/30/20 05:23 08:15 09:00 WBC RBC Hgb Hct MCV MCHC RDW Plt Count Lymph % (Auto) [place] % (Auto) Lymph # (Auto) [place] # (Auto) Seg Neutrophils % Seg Neuts % (Manual) Lymphocytes % (Manual) Monocytes % (Manual) Seg Neutrophils # Seg Neutrophils # Man Lymphocytes # (Manual) Monocytes # (Manual) PT INR ABG pH POC ABG pCO2 POC ABG pO2 ABG pO2 ABG HCO3 ABG O2 Saturation ABG Base Excess ABG Hemoglobin ABG Oxyhemoglobin ABG Sodium ABG Potassium ABG Chloride ABG Glucose Oxyhemoglobin Sodium 135 L Potassium Chloride 95.9 L Carbon Dioxide BUN 85 H Creatinine 10.6 H Glucose 128 H POC Glucose 135 H 127 H Lactic Acid Calcium 8.3 L Phosphorus Magnesium Total Bilirubin 2.40 H AST 85 H ALT Alkaline Phosphatase 216 H Total Protein 5.3 L Albumin 2.6 L Triglycerides 155 H Arterial Blood Glucose Arterial Blood Ionized Calcium Digoxin Crossmatch 12/30/20 12/30/20 12/30/20 09:00 11:53 15:49 WBC RBC 2.61 L Hgb 7.8 L Hct 23.7 L MCV MCHC RDW 17.3 H Plt Count Lymph % (Auto) [place] % (Auto) Lymph # (Auto) [place] # (Auto) Seg Neutrophils % Seg Neuts % (Manual) Lymphocytes % (Manual) Monocytes % (Manual) Seg Neutrophils # Seg Neutrophils # Man Lymphocytes # (Manual) Monocytes # (Manual) PT INR ABG pH POC ABG pCO2 POC ABG pO2 ABG pO2 ABG HCO3 ABG O2 Saturation ABG Base Excess ABG Hemoglobin ABG Oxyhemoglobin ABG Sodium ABG Potassium ABG Chloride ABG Glucose Oxyhemoglobin Sodium Potassium Chloride Carbon Dioxide BUN Creatinine Glucose POC Glucose 155 H 146 H Lactic Acid Calcium Phosphorus Magnesium Total Bilirubin AST ALT Alkaline Phosphatase Total Protein Albumin Triglycerides Arterial Blood Glucose Arterial Blood Ionized Calcium Digoxin Crossmatch 12/30/20 12/30/20 12/31/20 17:53 23:45 03:56 WBC RBC Hgb Hct MCV MCHC RDW Plt Count Lymph % (Auto) [place] % (Auto) Lymph # (Auto) [place] # (Auto) Seg Neutrophils % Seg Neuts % (Manual) Lymphocytes % (Manual) Monocytes % (Manual) Seg Neutrophils # Seg Neutrophils # Man Lymphocytes # (Manual) Monocytes # (Manual) PT INR ABG pH POC ABG pCO2 POC ABG pO2 49.4 L ABG pO2 ABG HCO3 ABG O2 Saturation ABG Base Excess ABG Hemoglobin 10.3 L ABG Oxyhemoglobin 84.2 L ABG Sodium 133.1 L ABG Potassium ABG Chloride ABG Glucose 173 H Oxyhemoglobin Sodium Potassium Chloride Carbon Dioxide BUN Creatinine Glucose POC Glucose 139 H 173 H Lactic Acid Calcium Phosphorus Magnesium Total Bilirubin AST ALT Alkaline Phosphatase Total Protein Albumin Triglycerides Arterial Blood Glucose 173 H Arterial Blood Ionized Calcium Digoxin Crossmatch 12/31/20 12/31/20 12/31/20 05:07 06:51 06:51 WBC 20.3 H RBC 3.32 L Hgb 9.8 L Hct 30.3 L D MCV MCHC RDW 17.3 H Plt Count Lymph % (Auto) [place] % (Auto) Lymph # (Auto) [place] # (Auto) Seg Neutrophils % Seg Neuts % (Manual) 87.0 H Lymphocytes % (Manual) 10.0 L Monocytes % (Manual) Seg Neutrophils # Seg Neutrophils # Man 17.7 H Lymphocytes # (Manual) Monocytes # (Manual) PT INR ABG pH POC ABG pCO2 POC ABG pO2 ABG pO2 ABG HCO3 ABG O2 Saturation ABG Base Excess ABG Hemoglobin ABG Oxyhemoglobin ABG Sodium ABG Potassium ABG Chloride ABG Glucose Oxyhemoglobin Sodium Potassium 5.2 H D Chloride Carbon Dioxide BUN 62 H Creatinine 8.4 H Glucose 116 H POC Glucose 120 H Lactic Acid Calcium Phosphorus Magnesium 1.60 L Total Bilirubin AST ALT Alkaline Phosphatase Total Protein Albumin Triglycerides Arterial Blood Glucose Arterial Blood Ionized Calcium Digoxin Crossmatch 12/31/20 12/31/20 12/31/20 09:38 12:19 12:22 WBC RBC Hgb Hct MCV MCHC RDW Plt Count Lymph % (Auto) [place] % (Auto) Lymph # (Auto) [place] # (Auto) Seg Neutrophils % Seg Neuts % (Manual) Lymphocytes % (Manual) Monocytes % (Manual) Seg Neutrophils # Seg Neutrophils # Man Lymphocytes # (Manual) Monocytes # (Manual) PT INR ABG pH POC ABG pCO2 POC ABG pO2 ABG pO2 354.0 H ABG HCO3 ABG O2 Saturation 99.6 H ABG Base Excess ABG Hemoglobin 9.1 L ABG Oxyhemoglobin ABG Sodium ABG Potassium ABG Chloride ABG Glucose Oxyhemoglobin Sodium Potassium 5.2 H Chloride Carbon Dioxide BUN Creatinine Glucose POC Glucose 132 H Lactic Acid Calcium Phosphorus Magnesium Total Bilirubin AST ALT Alkaline Phosphatase Total Protein Albumin Triglycerides Arterial Blood Glucose Arterial Blood Ionized Calcium Digoxin Crossmatch 12/31/20 01/01/21 01/01/21 23:23 03:03 05:04 WBC RBC Hgb Hct MCV MCHC RDW Plt Count Lymph % (Auto) [place] % (Auto) Lymph # (Auto) [place] # (Auto) Seg Neutrophils % Seg Neuts % (Manual) Lymphocytes % (Manual) Monocytes % (Manual) Seg Neutrophils # Seg Neutrophils # Man Lymphocytes # (Manual) Monocytes # (Manual) PT INR ABG pH POC ABG pCO2 POC ABG pO2 79.6 L ABG pO2 ABG HCO3 ABG O2 Saturation ABG Base Excess ABG Hemoglobin 9.2 L ABG Oxyhemoglobin ABG Sodium 131.6 L ABG Potassium 5.8 H ABG Chloride ABG Glucose 177 H Oxyhemoglobin Sodium Potassium Chloride Carbon Dioxide BUN Creatinine Glucose POC Glucose 174 H 167 H Lactic Acid Calcium Phosphorus Magnesium Total Bilirubin AST ALT Alkaline Phosphatase Total Protein Albumin Triglycerides Arterial Blood Glucose 177 H Arterial Blood Ionized Calcium Digoxin Crossmatch 01/01/21 01/01/21 01/01/21 07:31 07:31 11:31 WBC 26.1 H RBC 2.95 L Hgb 8.6 L Hct 27.1 L MCV MCHC RDW 18.2 H Plt Count Lymph % (Auto) [place] % (Auto) Lymph # (Auto) [place] # (Auto) Seg Neutrophils % Seg Neuts % (Manual) 96.0 H Lymphocytes % (Manual) 4.0 L Monocytes % (Manual) Seg Neutrophils # Seg Neutrophils # Man 25.1 H Lymphocytes # (Manual) 1.0 L Monocytes # (Manual) PT INR ABG pH POC ABG pCO2 POC ABG pO2 ABG pO2 ABG HCO3 ABG O2 Saturation ABG Base Excess ABG Hemoglobin ABG Oxyhemoglobin ABG Sodium ABG Potassium ABG Chloride ABG Glucose Oxyhemoglobin Sodium Potassium 6.0 H Chloride Carbon Dioxide 21 L BUN 89 H Creatinine 10.5 H Glucose 179 H POC Glucose Lactic Acid Calcium Phosphorus Magnesium Total Bilirubin AST ALT Alkaline Phosphatase Total Protein Albumin Triglycerides Arterial Blood Glucose Arterial Blood Ionized Calcium Digoxin Crossmatch See Detail 01/01/21 01/01/21 01/01/21 11:51 12:45 16:52 WBC RBC Hgb Hct MCV MCHC RDW Plt Count Lymph % (Auto) [place] % (Auto) Lymph # (Auto) [place] # (Auto) Seg Neutrophils % Seg Neuts % (Manual) Lymphocytes % (Manual) Monocytes % (Manual) Seg Neutrophils # Seg Neutrophils # Man Lymphocytes # (Manual) Monocytes # (Manual) PT 16.9 H INR 1.39 H ABG pH POC ABG pCO2 POC ABG pO2 ABG pO2 ABG HCO3 ABG O2 Saturation ABG Base Excess ABG Hemoglobin ABG Oxyhemoglobin ABG Sodium ABG Potassium ABG Chloride ABG Glucose Oxyhemoglobin Sodium Potassium Chloride Carbon Dioxide BUN Creatinine Glucose POC Glucose 157 H 177 H Lactic Acid Calcium Phosphorus Magnesium Total Bilirubin AST ALT Alkaline Phosphatase Total Protein Albumin Triglycerides Arterial Blood Glucose Arterial Blood Ionized Calcium Digoxin Crossmatch 01/01/21 01/01/21 01/01/21 17:58 17:58 20:12 WBC 26.9 H RBC 3.14 L Hgb 9.3 L Hct 29.6 L MCV MCHC RDW 17.5 H Plt Count Lymph % (Auto) [place] % (Auto) Lymph # (Auto) [place] # (Auto) Seg Neutrophils % Seg Neuts % (Manual) 84.0 H Lymphocytes % (Manual) 4.0 L Monocytes % (Manual) 12.0 H Seg Neutrophils # Seg Neutrophils # Man 22.6 H Lymphocytes # (Manual) 1.1 L Monocytes # (Manual) 3.2 H PT INR ABG pH POC ABG pCO2 POC ABG pO2 ABG pO2 ABG HCO3 ABG O2 Saturation ABG Base Excess ABG Hemoglobin ABG Oxyhemoglobin ABG Sodium ABG Potassium ABG Chloride ABG Glucose Oxyhemoglobin Sodium 136 L Potassium 6.2 H* Chloride Carbon Dioxide 21 L BUN 92 H Creatinine 10.8 H Glucose 171 H POC Glucose 288 H Lactic Acid Calcium Phosphorus Magnesium Total Bilirubin 2.10 H AST 223 H ALT 100 H Alkaline Phosphatase 206 H Total Protein 4.8 L Albumin 1.9 L Triglycerides Arterial Blood Glucose Arterial Blood Ionized Calcium Digoxin Crossmatch 01/02/21 01/02/21 01/02/21 00:12 00:45 03:05 WBC RBC Hgb Hct MCV MCHC RDW Plt Count Lymph % (Auto) [place] % (Auto) Lymph # (Auto) [place] # (Auto) Seg Neutrophils % Seg Neuts % (Manual) Lymphocytes % (Manual) Monocytes % (Manual) Seg Neutrophils # Seg Neutrophils # Man Lymphocytes # (Manual) Monocytes # (Manual) PT INR ABG pH POC ABG pCO2 POC ABG pO2 81.8 L ABG pO2 ABG HCO3 ABG O2 Saturation ABG Base Excess ABG Hemoglobin 8.0 L ABG Oxyhemoglobin ABG Sodium 129.8 L ABG Potassium 5.4 H ABG Chloride ABG Glucose 257 H Oxyhemoglobin Sodium 136 L Potassium 5.8 H Chloride 96.6 L Carbon Dioxide BUN 95 H Creatinine 11.2 H Glucose 238 H POC Glucose 223 H Lactic Acid Calcium Phosphorus Magnesium Total Bilirubin AST ALT Alkaline Phosphatase Total Protein Albumin Triglycerides Arterial Blood Glucose 257 H Arterial Blood Ionized Calcium 4.0 L Digoxin Crossmatch 01/02/21 01/02/21 01/02/21 06:25 08:00 08:00 WBC 17.5 H RBC 2.31 L Hgb 6.7 L Hct 22.1 L D MCV 96 H MCHC 30 L RDW 18.4 H Plt Count Lymph % (Auto) [place] % (Auto) Lymph # (Auto) [place] # (Auto) Seg Neutrophils % Seg Neuts % (Manual) Lymphocytes % (Manual) Monocytes % (Manual) Seg Neutrophils # Seg Neutrophils # Man Lymphocytes # (Manual) Monocytes # (Manual) PT INR ABG pH POC ABG pCO2 POC ABG pO2 ABG pO2 ABG HCO3 ABG O2 Saturation ABG Base Excess ABG Hemoglobin ABG Oxyhemoglobin ABG Sodium ABG Potassium ABG Chloride ABG Glucose Oxyhemoglobin Sodium 134 L Potassium 5.3 H Chloride 92.9 L Carbon Dioxide BUN 101 H Creatinine 10.9 H Glucose 560 H* POC Glucose 239 H Lactic Acid Calcium 7.6 L Phosphorus 6.50 H Magnesium Total Bilirubin AST ALT Alkaline Phosphatase Total Protein Albumin Triglycerides Arterial Blood Glucose Arterial Blood Ionized Calcium Digoxin Crossmatch 01/02/21 01/02/21 01/02/21 11:26 15:00 17:57 WBC RBC Hgb Hct MCV MCHC RDW Plt Count Lymph % (Auto) [place] % (Auto) Lymph # (Auto) [place] # (Auto) Seg Neutrophils % Seg Neuts % (Manual) Lymphocytes % (Manual) Monocytes % (Manual) Seg Neutrophils # Seg Neutrophils # Man Lymphocytes # (Manual) Monocytes # (Manual) PT INR ABG pH POC ABG pCO2 POC ABG pO2 ABG pO2 ABG HCO3 ABG O2 Saturation ABG Base Excess ABG Hemoglobin ABG Oxyhemoglobin ABG Sodium ABG Potassium ABG Chloride ABG Glucose Oxyhemoglobin Sodium Potassium Chloride Carbon Dioxide BUN Creatinine Glucose 241 H POC Glucose 205 H 272 H Lactic Acid Calcium Phosphorus Magnesium Total Bilirubin AST ALT Alkaline Phosphatase Total Protein Albumin Triglycerides Arterial Blood Glucose Arterial Blood Ionized Calcium Digoxin Crossmatch 01/02/21 01/02/21 01/03/21 23:25 23:43 03:45 WBC RBC Hgb Hct MCV MCHC RDW Plt Count Lymph % (Auto) [place] % (Auto) Lymph # (Auto) [place] # (Auto) Seg Neutrophils % Seg Neuts % (Manual) Lymphocytes % (Manual) Monocytes % (Manual) Seg Neutrophils # Seg Neutrophils # Man Lymphocytes # (Manual) Monocytes # (Manual) PT INR ABG pH POC ABG pCO2 48.3 H POC ABG pO2 134.4 H 79.7 L ABG pO2 ABG HCO3 ABG O2 Saturation ABG Base Excess ABG Hemoglobin 7.7 L 8.6 L ABG Oxyhemoglobin ABG Sodium 131.8 L 130.4 L ABG Potassium ABG Chloride 97.0 L ABG Glucose 218 H 238 H Oxyhemoglobin Sodium Potassium Chloride Carbon Dioxide BUN Creatinine Glucose POC Glucose 218 H Lactic Acid Calcium Phosphorus Magnesium Total Bilirubin AST ALT Alkaline Phosphatase Total Protein Albumin Triglycerides Arterial Blood Glucose 218 H 238 H Arterial Blood Ionized Calcium 4.1 L 4.0 L Digoxin Crossmatch 01/03/21 01/03/21 01/03/21 04:37 04:37 05:39 WBC 15.2 H RBC 2.38 L Hgb 7.3 L Hct 21.6 L MCV MCHC RDW 16.6 H Plt Count Lymph % (Auto) [place] % (Auto) Lymph # (Auto) [place] # (Auto) Seg Neutrophils % Seg Neuts % (Manual) Lymphocytes % (Manual) Monocytes % (Manual) Seg Neutrophils # Seg Neutrophils # Man Lymphocytes # (Manual) Monocytes # (Manual) PT INR ABG pH POC ABG pCO2 POC ABG pO2 ABG pO2 ABG HCO3 ABG O2 Saturation ABG Base Excess ABG Hemoglobin ABG Oxyhemoglobin ABG Sodium ABG Potassium ABG Chloride ABG Glucose Oxyhemoglobin Sodium 136 L Potassium Chloride 94.5 L Carbon Dioxide BUN 69 H Creatinine 8.0 H Glucose 219 H POC Glucose 222 H Lactic Acid Calcium 7.8 L Phosphorus 4.80 H D Magnesium Total Bilirubin AST ALT Alkaline Phosphatase Total Protein Albumin Triglycerides Arterial Blood Glucose Arterial Blood Ionized Calcium Digoxin Crossmatch 01/03/21 01/03/21 01/03/21 11:29 18:49 23:37 WBC RBC Hgb Hct MCV MCHC RDW Plt Count Lymph % (Auto) [place] % (Auto) Lymph # (Auto) [place] # (Auto) Seg Neutrophils % Seg Neuts % (Manual) Lymphocytes % (Manual) Monocytes % (Manual) Seg Neutrophils # Seg Neutrophils # Man Lymphocytes # (Manual) Monocytes # (Manual) PT INR ABG pH POC ABG pCO2 POC ABG pO2 ABG pO2 ABG HCO3 ABG O2 Saturation ABG Base Excess ABG Hemoglobin ABG Oxyhemoglobin ABG Sodium ABG Potassium ABG Chloride ABG Glucose Oxyhemoglobin Sodium Potassium Chloride Carbon Dioxide BUN Creatinine Glucose POC Glucose 232 H 129 H 140 H Lactic Acid Calcium Phosphorus Magnesium Total Bilirubin AST ALT Alkaline Phosphatase Total Protein Albumin Triglycerides Arterial Blood Glucose Arterial Blood Ionized Calcium Digoxin Crossmatch 01/04/21 01/04/21 01/04/21 03:22 04:38 04:38 WBC 11.1 H RBC 2.89 L Hgb 8.9 L Hct 26.2 L MCV MCHC RDW 16.1 H Plt Count Lymph % (Auto) [place] % (Auto) Lymph # (Auto) [place] # (Auto) Seg Neutrophils % Seg Neuts % (Manual) Lymphocytes % (Manual) Monocytes % (Manual) Seg Neutrophils # Seg Neutrophils # Man Lymphocytes # (Manual) Monocytes # (Manual) PT INR ABG pH POC ABG pCO2 POC ABG pO2 82.3 L ABG pO2 ABG HCO3 ABG O2 Saturation ABG Base Excess ABG Hemoglobin 8.9 L ABG Oxyhemoglobin ABG Sodium 130.5 L ABG Potassium ABG Chloride ABG Glucose 124 H Oxyhemoglobin Sodium Potassium Chloride 95.5 L Carbon Dioxide BUN 87 H Creatinine 9.7 H Glucose 118 H POC Glucose Lactic Acid Calcium 7.7 L Phosphorus Magnesium Total Bilirubin AST ALT Alkaline Phosphatase Total Protein Albumin Triglycerides Arterial Blood Glucose 124 H Arterial Blood Ionized Calcium 3.5 L Digoxin Crossmatch 01/04/21 01/04/21 01/04/21 05:39 12:04 18:04 WBC RBC Hgb Hct MCV MCHC RDW Plt Count Lymph % (Auto) [place] % (Auto) Lymph # (Auto) [place] # (Auto) Seg Neutrophils % Seg Neuts % (Manual) Lymphocytes % (Manual) Monocytes % (Manual) Seg Neutrophils # Seg Neutrophils # Man Lymphocytes # (Manual) Monocytes # (Manual) PT INR ABG pH POC ABG pCO2 POC ABG pO2 ABG pO2 ABG HCO3 ABG O2 Saturation ABG Base Excess ABG Hemoglobin ABG Oxyhemoglobin ABG Sodium ABG Potassium ABG Chloride ABG Glucose Oxyhemoglobin Sodium Potassium Chloride Carbon Dioxide BUN Creatinine Glucose POC Glucose 134 H 125 H 131 H Lactic Acid Calcium Phosphorus Magnesium Total Bilirubin AST ALT Alkaline Phosphatase Total Protein Albumin Triglycerides Arterial Blood Glucose Arterial Blood Ionized Calcium Digoxin Crossmatch 01/04/21 01/05/21 01/05/21 23:41 03:23 04:49 WBC RBC Hgb Hct MCV MCHC RDW Plt Count Lymph % (Auto) [place] % (Auto) Lymph # (Auto) [place] # (Auto) Seg Neutrophils % Seg Neuts % (Manual) Lymphocytes % (Manual) Monocytes % (Manual) Seg Neutrophils # Seg Neutrophils # Man Lymphocytes # (Manual) Monocytes # (Manual) PT INR ABG pH POC ABG pCO2 POC ABG pO2 62.8 L ABG pO2 ABG HCO3 ABG O2 Saturation ABG Base Excess ABG Hemoglobin 9.5 L ABG Oxyhemoglobin 92.0 L ABG Sodium 130.1 L ABG Potassium ABG Chloride ABG Glucose 148 H Oxyhemoglobin Sodium Potassium Chloride 96.9 L Carbon Dioxide BUN 57 H Creatinine 6.7 H Glucose 135 H POC Glucose 132 H Lactic Acid Calcium 8.0 L Phosphorus Magnesium Total Bilirubin AST ALT Alkaline Phosphatase Total Protein Albumin Triglycerides Arterial Blood Glucose 148 H Arterial Blood Ionized Calcium 4.1 L Digoxin Crossmatch 01/05/21 01/05/21 01/05/21 05:04 11:48 12:39 WBC RBC 3.03 L Hgb 9.3 L Hct 27.6 L MCV MCHC RDW 16.5 H Plt Count Lymph % (Auto) [place] % (Auto) Lymph # (Auto) [place] # (Auto) Seg Neutrophils % Seg Neuts % (Manual) Lymphocytes % (Manual) Monocytes % (Manual) Seg Neutrophils # Seg Neutrophils # Man Lymphocytes # (Manual) Monocytes # (Manual) PT INR ABG pH POC ABG pCO2 POC ABG pO2 ABG pO2 ABG HCO3 ABG O2 Saturation ABG Base Excess ABG Hemoglobin ABG Oxyhemoglobin ABG Sodium ABG Potassium ABG Chloride ABG Glucose Oxyhemoglobin Sodium Potassium Chloride Carbon Dioxide BUN Creatinine Glucose POC Glucose 147 H 162 H Lactic Acid Calcium Phosphorus Magnesium Total Bilirubin AST ALT Alkaline Phosphatase Total Protein Albumin Triglycerides Arterial Blood Glucose Arterial Blood Ionized Calcium Digoxin Crossmatch 01/05/21 01/05/21 01/06/21 17:50 23:32 04:15 WBC RBC Hgb Hct MCV MCHC RDW Plt Count Lymph % (Auto) [place] % (Auto) Lymph # (Auto) [place] # (Auto) Seg Neutrophils % Seg Neuts % (Manual) Lymphocytes % (Manual) Monocytes % (Manual) Seg Neutrophils # Seg Neutrophils # Man Lymphocytes # (Manual) Monocytes # (Manual) PT INR ABG pH POC ABG pCO2 POC ABG pO2 ABG pO2 191.0 H ABG HCO3 ABG O2 Saturation 99.2 H ABG Base Excess ABG Hemoglobin 9.0 L ABG Oxyhemoglobin ABG Sodium ABG Potassium ABG Chloride ABG Glucose Oxyhemoglobin Sodium Potassium Chloride Carbon Dioxide BUN Creatinine Glucose POC Glucose 155 H 115 H Lactic Acid Calcium Phosphorus Magnesium Total Bilirubin AST ALT Alkaline Phosphatase Total Protein Albumin Triglycerides Arterial Blood Glucose Arterial Blood Ionized Calcium Digoxin Crossmatch 01/06/21 01/06/21 01/06/21 04:45 05:56 07:03 WBC RBC 2.95 L Hgb 9.1 L Hct 26.8 L MCV MCHC RDW 16.8 H Plt Count Lymph % (Auto) [place] % (Auto) Lymph # (Auto) [place] # (Auto) Seg Neutrophils % Seg Neuts % (Manual) Lymphocytes % (Manual) Monocytes % (Manual) Seg Neutrophils # Seg Neutrophils # Man Lymphocytes # (Manual) Monocytes # (Manual) PT INR ABG pH POC ABG pCO2 POC ABG pO2 ABG pO2 ABG HCO3 ABG O2 Saturation ABG Base Excess ABG Hemoglobin ABG Oxyhemoglobin ABG Sodium ABG Potassium ABG Chloride ABG Glucose Oxyhemoglobin Sodium 135 L Potassium Chloride 95.9 L Carbon Dioxide BUN 82 H Creatinine 8.7 H Glucose 127 H POC Glucose 136 H Lactic Acid Calcium 8.3 L Phosphorus Magnesium Total Bilirubin AST ALT Alkaline Phosphatase Total Protein Albumin Triglycerides Arterial Blood Glucose Arterial Blood Ionized Calcium Digoxin Crossmatch 01/06/21 01/06/21 01/06/21 07:10 11:04 13:38 WBC RBC Hgb Hct MCV MCHC RDW Plt Count Lymph % (Auto) [place] % (Auto) Lymph # (Auto) [place] # (Auto) Seg Neutrophils % Seg Neuts % (Manual) Lymphocytes % (Manual) Monocytes % (Manual) Seg Neutrophils # Seg Neutrophils # Man Lymphocytes # (Manual) Monocytes # (Manual) PT INR ABG pH POC ABG pCO2 POC ABG pO2 ABG pO2 ABG HCO3 ABG O2 Saturation ABG Base Excess ABG Hemoglobin ABG Oxyhemoglobin ABG Sodium ABG Potassium ABG Chloride ABG Glucose Oxyhemoglobin Sodium Potassium Chloride Carbon Dioxide BUN Creatinine Glucose POC Glucose 178 H 155 H Lactic Acid Calcium Phosphorus Magnesium Total Bilirubin AST ALT Alkaline Phosphatase Total Protein Albumin Triglycerides Arterial Blood Glucose Arterial Blood Ionized Calcium Digoxin Crossmatch See Detail 01/06/21 01/06/21 01/07/21 17:35 22:21 03:07 WBC RBC Hgb Hct MCV MCHC RDW Plt Count Lymph % (Auto) [place] % (Auto) Lymph # (Auto) [place] # (Auto) Seg Neutrophils % Seg Neuts % (Manual) Lymphocytes % (Manual) Monocytes % (Manual) Seg Neutrophils # Seg Neutrophils # Man Lymphocytes # (Manual) Monocytes # (Manual) PT INR ABG pH POC ABG pCO2 POC ABG pO2 ABG pO2 ABG HCO3 ABG O2 Saturation ABG Base Excess ABG Hemoglobin 11.9 L ABG Oxyhemoglobin ABG Sodium 135.6 L ABG Potassium ABG Chloride ABG Glucose 181 H Oxyhemoglobin Sodium Potassium Chloride Carbon Dioxide BUN Creatinine Glucose POC Glucose 138 H 202 H Lactic Acid Calcium Phosphorus Magnesium Total Bilirubin AST ALT Alkaline Phosphatase Total Protein Albumin Triglycerides Arterial Blood Glucose 181 H Arterial Blood Ionized Calcium 4.3 L Digoxin Crossmatch 01/07/21 01/07/21 01/07/21 04:50 05:21 08:37 WBC 12.4 H RBC Hgb 11.1 L Hct 33.3 L D MCV MCHC RDW 17.0 H Plt Count Lymph % (Auto) 3.2 L [place] % (Auto) 9.4 H Lymph # (Auto) 0.4 L [place] # (Auto) 1.2 H Seg Neutrophils % 86.6 H Seg Neuts % (Manual) Lymphocytes % (Manual) Monocytes % (Manual) Seg Neutrophils # 10.7 H Seg Neutrophils # Man Lymphocytes # (Manual) Monocytes # (Manual) PT INR ABG pH POC ABG pCO2 POC ABG pO2 ABG pO2 ABG HCO3 ABG O2 Saturation ABG Base Excess ABG Hemoglobin ABG Oxyhemoglobin ABG Sodium ABG Potassium ABG Chloride ABG Glucose Oxyhemoglobin Sodium Potassium Chloride Carbon Dioxide BUN 60 H Creatinine 6.3 H Glucose 154 H POC Glucose 177 H Lactic Acid Calcium 8.3 L Phosphorus Magnesium Total Bilirubin AST ALT Alkaline Phosphatase Total Protein Albumin Triglycerides Arterial Blood Glucose Arterial Blood Ionized Calcium Digoxin Crossmatch 01/07/21 01/07/21 01/07/21 11:21 12:19 17:11 WBC RBC Hgb Hct MCV MCHC RDW Plt Count Lymph % (Auto) [place] % (Auto) Lymph # (Auto) [place] # (Auto) Seg Neutrophils % Seg Neuts % (Manual) Lymphocytes % (Manual) Monocytes % (Manual) Seg Neutrophils # Seg Neutrophils # Man Lymphocytes # (Manual) Monocytes # (Manual) PT INR ABG pH POC ABG pCO2 POC ABG pO2 ABG pO2 ABG HCO3 ABG O2 Saturation ABG Base Excess ABG Hemoglobin ABG Oxyhemoglobin ABG Sodium ABG Potassium ABG Chloride ABG Glucose Oxyhemoglobin Sodium Potassium Chloride Carbon Dioxide BUN Creatinine Glucose POC Glucose 144 H 137 H 119 H Lactic Acid Calcium Phosphorus Magnesium Total Bilirubin AST ALT Alkaline Phosphatase Total Protein Albumin Triglycerides Arterial Blood Glucose Arterial Blood Ionized Calcium Digoxin Crossmatch 01/07/21 01/07/21 01/08/21 17:14 23:39 04:34 WBC RBC Hgb Hct MCV MCHC RDW Plt Count Lymph % (Auto) [place] % (Auto) Lymph # (Auto) [place] # (Auto) Seg Neutrophils % Seg Neuts % (Manual) Lymphocytes % (Manual) Monocytes % (Manual) Seg Neutrophils # Seg Neutrophils # Man Lymphocytes # (Manual) Monocytes # (Manual) PT INR ABG pH 7.345 L POC ABG pCO2 POC ABG pO2 ABG pO2 67.4 L ABG HCO3 ABG O2 Saturation 94.3 L ABG Base Excess -3.9 L ABG Hemoglobin 8.9 L ABG Oxyhemoglobin ABG Sodium ABG Potassium ABG Chloride ABG Glucose Oxyhemoglobin 92.3 L Sodium Potassium Chloride Carbon Dioxide 20 L BUN 93 H Creatinine 8.8 H Glucose 120 H POC Glucose 129 H Lactic Acid Calcium Phosphorus Magnesium Total Bilirubin AST ALT Alkaline Phosphatase 133 H Total Protein 5.4 L Albumin 1.9 L Triglycerides Arterial Blood Glucose Arterial Blood Ionized Calcium Digoxin Crossmatch 01/08/21 01/08/21 01/08/21 05:26 11:38 17:19 WBC RBC Hgb Hct MCV MCHC RDW Plt Count Lymph % (Auto) [place] % (Auto) Lymph # (Auto) [place] # (Auto) Seg Neutrophils % Seg Neuts % (Manual) Lymphocytes % (Manual) Monocytes % (Manual) Seg Neutrophils # Seg Neutrophils # Man Lymphocytes # (Manual) Monocytes # (Manual) PT INR ABG pH POC ABG pCO2 POC ABG pO2 ABG pO2 ABG HCO3 ABG O2 Saturation ABG Base Excess ABG Hemoglobin ABG Oxyhemoglobin ABG Sodium ABG Potassium ABG Chloride ABG Glucose Oxyhemoglobin Sodium Potassium Chloride Carbon Dioxide BUN Creatinine Glucose POC Glucose 125 H 146 H 136 H Lactic Acid Calcium Phosphorus Magnesium Total Bilirubin AST ALT Alkaline Phosphatase Total Protein Albumin Triglycerides Arterial Blood Glucose Arterial Blood Ionized Calcium Digoxin Crossmatch 01/08/21 01/09/21 01/09/21 23:52 05:13 05:21 WBC RBC Hgb Hct MCV MCHC RDW Plt Count Lymph % (Auto) [place] % (Auto) Lymph # (Auto) [place] # (Auto) Seg Neutrophils % Seg Neuts % (Manual) Lymphocytes % (Manual) Monocytes % (Manual) Seg Neutrophils # Seg Neutrophils # Man Lymphocytes # (Manual) Monocytes # (Manual) PT INR ABG pH POC ABG pCO2 POC ABG pO2 ABG pO2 ABG HCO3 ABG O2 Saturation ABG Base Excess ABG Hemoglobin ABG Oxyhemoglobin ABG Sodium ABG Potassium ABG Chloride ABG Glucose Oxyhemoglobin Sodium Potassium Chloride Carbon Dioxide 16 L BUN 123 H Creatinine 10.8 H Glucose 145 H POC Glucose 143 H 144 H Lactic Acid Calcium Phosphorus 5.00 H D Magnesium 2.40 H Total Bilirubin AST ALT Alkaline Phosphatase Total Protein Albumin Triglycerides Arterial Blood Glucose Arterial Blood Ionized Calcium Digoxin Crossmatch 01/09/21 01/09/21 01/09/21 12:08 17:20 23:56 WBC RBC Hgb Hct MCV MCHC RDW Plt Count Lymph % (Auto) [place] % (Auto) Lymph # (Auto) [place] # (Auto) Seg Neutrophils % Seg Neuts % (Manual) Lymphocytes % (Manual) Monocytes % (Manual) Seg Neutrophils # Seg Neutrophils # Man Lymphocytes # (Manual) Monocytes # (Manual) PT INR ABG pH POC ABG pCO2 POC ABG pO2 ABG pO2 ABG HCO3 ABG O2 Saturation ABG Base Excess ABG Hemoglobin ABG Oxyhemoglobin ABG Sodium ABG Potassium ABG Chloride ABG Glucose Oxyhemoglobin Sodium Potassium Chloride Carbon Dioxide BUN Creatinine Glucose POC Glucose 153 H 160 H 158 H Lactic Acid Calcium Phosphorus Magnesium Total Bilirubin AST ALT Alkaline Phosphatase Total Protein Albumin Triglycerides Arterial Blood Glucose Arterial Blood Ionized Calcium Digoxin Crossmatch 01/10/21 01/10/21 01/10/21 04:52 05:44 07:41 WBC RBC Hgb Hct MCV MCHC RDW Plt Count Lymph % (Auto) [place] % (Auto) Lymph # (Auto) [place] # (Auto) Seg Neutrophils % Seg Neuts % (Manual) Lymphocytes % (Manual) Monocytes % (Manual) Seg Neutrophils # Seg Neutrophils # Man Lymphocytes # (Manual) Monocytes # (Manual) PT INR ABG pH POC ABG pCO2 POC ABG pO2 ABG pO2 ABG HCO3 ABG O2 Saturation ABG Base Excess ABG Hemoglobin ABG Oxyhemoglobin ABG Sodium ABG Potassium ABG Chloride ABG Glucose Oxyhemoglobin Sodium 135 L Potassium 3.5 L D Chloride 95.0 L Carbon Dioxide 21 L BUN 93 H Creatinine 8.3 H Glucose 127 H POC Glucose 135 H 157 H Lactic Acid Calcium Phosphorus Magnesium Total Bilirubin AST ALT Alkaline Phosphatase Total Protein Albumin Triglycerides Arterial Blood Glucose Arterial Blood Ionized Calcium Digoxin Crossmatch 01/10/21 01/10/21 01/10/21 09:26 12:03 17:44 WBC 18.2 H RBC 3.14 L Hgb 9.7 L Hct 28.2 L MCV MCHC RDW 16.5 H Plt Count Lymph % (Auto) [place] % (Auto) Lymph # (Auto) [place] # (Auto) Seg Neutrophils % Seg Neuts % (Manual) 95.0 H Lymphocytes % (Manual) 3.0 L Monocytes % (Manual) Seg Neutrophils # Seg Neutrophils # Man 17.3 H Lymphocytes # (Manual) 0.5 L Monocytes # (Manual) PT INR ABG pH POC ABG pCO2 POC ABG pO2 ABG pO2 ABG HCO3 ABG O2 Saturation ABG Base Excess ABG Hemoglobin ABG Oxyhemoglobin ABG Sodium ABG Potassium ABG Chloride ABG Glucose Oxyhemoglobin Sodium Potassium Chloride Carbon Dioxide BUN Creatinine Glucose POC Glucose 163 H 171 H Lactic Acid Calcium Phosphorus Magnesium Total Bilirubin AST ALT Alkaline Phosphatase Total Protein Albumin Triglycerides Arterial Blood Glucose Arterial Blood Ionized Calcium Digoxin Crossmatch 01/10/21 01/11/21 01/11/21 23:50 05:18 05:18 WBC RBC Hgb Hct MCV MCHC RDW Plt Count Lymph % (Auto) [place] % (Auto) Lymph # (Auto) [place] # (Auto) Seg Neutrophils % Seg Neuts % (Manual) Lymphocytes % (Manual) Monocytes % (Manual) Seg Neutrophils # Seg Neutrophils # Man Lymphocytes # (Manual) Monocytes # (Manual) PT INR ABG pH POC ABG pCO2 POC ABG pO2 ABG pO2 ABG HCO3 ABG O2 Saturation ABG Base Excess ABG Hemoglobin ABG Oxyhemoglobin ABG Sodium ABG Potassium ABG Chloride ABG Glucose Oxyhemoglobin Sodium 136 L Potassium Chloride 94.6 L Carbon Dioxide 19 L BUN 145 H Creatinine 10.6 H Glucose 152 H POC Glucose 151 H Lactic Acid Calcium Phosphorus 6.00 H D Magnesium Total Bilirubin AST ALT Alkaline Phosphatase Total Protein Albumin Triglycerides Arterial Blood Glucose Arterial Blood Ionized Calcium Digoxin 0.8 L Crossmatch 01/11/21 01/11/21 01/11/21 05:18 05:19 11:28 WBC 17.4 H RBC 3.34 L Hgb 10.2 L Hct 29.7 L MCV MCHC RDW 15.9 H Plt Count Lymph % (Auto) [place] % (Auto) Lymph # (Auto) [place] # (Auto) Seg Neutrophils % Seg Neuts % (Manual) Lymphocytes % (Manual) Monocytes % (Manual) Seg Neutrophils # Seg Neutrophils # Man Lymphocytes # (Manual) Monocytes # (Manual) PT INR ABG pH POC ABG pCO2 POC ABG pO2 ABG pO2 ABG HCO3 ABG O2 Saturation ABG Base Excess ABG Hemoglobin ABG Oxyhemoglobin ABG Sodium ABG Potassium ABG Chloride ABG Glucose Oxyhemoglobin Sodium Potassium Chloride Carbon Dioxide BUN Creatinine Glucose POC Glucose 149 H 178 H Lactic Acid Calcium Phosphorus Magnesium Total Bilirubin AST ALT Alkaline Phosphatase Total Protein Albumin Triglycerides Arterial Blood Glucose Arterial Blood Ionized Calcium Digoxin Crossmatch 01/11/21 01/11/21 01/12/21 17:31 23:14 05:18 WBC RBC Hgb Hct MCV MCHC RDW Plt Count Lymph % (Auto) [place] % (Auto) Lymph # (Auto) [place] # (Auto) Seg Neutrophils % Seg Neuts % (Manual) Lymphocytes % (Manual) Monocytes % (Manual) Seg Neutrophils # Seg Neutrophils # Man Lymphocytes # (Manual) Monocytes # (Manual) PT INR ABG pH POC ABG pCO2 POC ABG pO2 ABG pO2 ABG HCO3 ABG O2 Saturation ABG Base Excess ABG Hemoglobin ABG Oxyhemoglobin ABG Sodium ABG Potassium ABG Chloride ABG Glucose Oxyhemoglobin Sodium Potassium Chloride Carbon Dioxide BUN Creatinine Glucose POC Glucose 158 H 145 H 148 H Lactic Acid Calcium Phosphorus Magnesium Total Bilirubin AST ALT Alkaline Phosphatase Total Protein Albumin Triglycerides Arterial Blood Glucose Arterial Blood Ionized Calcium Digoxin Crossmatch 01/12/21 01/12/21 01/12/21 06:50 10:45 13:34 WBC RBC Hgb Hct MCV MCHC RDW Plt Count Lymph % (Auto) [place] % (Auto) Lymph # (Auto) [place] # (Auto) Seg Neutrophils % Seg Neuts % (Manual) Lymphocytes % (Manual) Monocytes % (Manual) Seg Neutrophils # Seg Neutrophils # Man Lymphocytes # (Manual) Monocytes # (Manual) PT INR ABG pH POC ABG pCO2 POC ABG pO2 ABG pO2 ABG HCO3 ABG O2 Saturation ABG Base Excess ABG Hemoglobin ABG Oxyhemoglobin ABG Sodium ABG Potassium ABG Chloride ABG Glucose Oxyhemoglobin Sodium Potassium 2.9 L* D Chloride 94.8 L Carbon Dioxide BUN 102 H Creatinine 8.3 H Glucose 139 H POC Glucose 151 H 134 H Lactic Acid Calcium 8.1 L Phosphorus 5.00 H Magnesium Total Bilirubin AST ALT Alkaline Phosphatase Total Protein Albumin Triglycerides Arterial Blood Glucose Arterial Blood Ionized Calcium Digoxin Crossmatch 01/12/21 01/12/21 01/13/21 16:59 23:06 03:45 WBC RBC Hgb Hct MCV MCHC RDW Plt Count Lymph % (Auto) [place] % (Auto) Lymph # (Auto) [place] # (Auto) Seg Neutrophils % Seg Neuts % (Manual) Lymphocytes % (Manual) Monocytes % (Manual) Seg Neutrophils # Seg Neutrophils # Man Lymphocytes # (Manual) Monocytes # (Manual) PT INR ABG pH POC ABG pCO2 POC ABG pO2 ABG pO2 ABG HCO3 ABG O2 Saturation ABG Base Excess ABG Hemoglobin ABG Oxyhemoglobin ABG Sodium ABG Potassium ABG Chloride ABG Glucose Oxyhemoglobin Sodium 136 L Potassium 3.4 L Chloride 92.6 L Carbon Dioxide BUN 134 H Creatinine 10.4 H Glucose 126 H POC Glucose 108 H 135 H Lactic Acid Calcium 8.3 L Phosphorus 5.60 H Magnesium 1.50 L Total Bilirubin AST ALT Alkaline Phosphatase Total Protein Albumin Triglycerides Arterial Blood Glucose Arterial Blood Ionized Calcium Digoxin Crossmatch 01/13/21 01/13/21 01/13/21 03:45 05:55 11:59 WBC 17.6 H RBC 3.33 L Hgb 10.2 L Hct 29.5 L MCV MCHC 35 H RDW 15.5 H Plt Count Lymph % (Auto) 4.4 L [place] % (Auto) 10.3 H Lymph # (Auto) 0.8 L [place] # (Auto) 1.8 H Seg Neutrophils % 84.2 H Seg Neuts % (Manual) Lymphocytes % (Manual) Monocytes % (Manual) Seg Neutrophils # 14.8 H Seg Neutrophils # Man Lymphocytes # (Manual) Monocytes # (Manual) PT INR ABG pH POC ABG pCO2 POC ABG pO2 ABG pO2 ABG HCO3 ABG O2 Saturation ABG Base Excess ABG Hemoglobin ABG Oxyhemoglobin ABG Sodium ABG Potassium ABG Chloride ABG Glucose Oxyhemoglobin Sodium Potassium Chloride Carbon Dioxide BUN Creatinine Glucose POC Glucose 134 H 141 H Lactic Acid Calcium Phosphorus Magnesium Total Bilirubin AST ALT Alkaline Phosphatase Total Protein Albumin Triglycerides Arterial Blood Glucose Arterial Blood Ionized Calcium Digoxin Crossmatch 01/13/21 01/14/21 01/14/21 23:09 05:39 05:57 WBC RBC Hgb Hct MCV MCHC RDW Plt Count Lymph % (Auto) [place] % (Auto) Lymph # (Auto) [place] # (Auto) Seg Neutrophils % Seg Neuts % (Manual) Lymphocytes % (Manual) Monocytes % (Manual) Seg Neutrophils # Seg Neutrophils # Man Lymphocytes # (Manual) Monocytes # (Manual) PT INR ABG pH POC ABG pCO2 POC ABG pO2 ABG pO2 ABG HCO3 ABG O2 Saturation ABG Base Excess ABG Hemoglobin ABG Oxyhemoglobin ABG Sodium ABG Potassium ABG Chloride ABG Glucose Oxyhemoglobin Sodium Potassium Chloride 97.6 L Carbon Dioxide BUN 81 H Creatinine 7.6 H Glucose 193 H POC Glucose 106 H 190 H Lactic Acid Calcium 8.2 L Phosphorus 4.60 H Magnesium Total Bilirubin AST ALT Alkaline Phosphatase Total Protein Albumin Triglycerides Arterial Blood Glucose Arterial Blood Ionized Calcium Digoxin Crossmatch 01/14/21 01/14/21 01/14/21 10:00 16:56 16:59 WBC 17.0 H RBC 3.10 L Hgb 9.6 L Hct 27.4 L MCV MCHC 35 H RDW 15.6 H Plt Count Lymph % (Auto) [place] % (Auto) Lymph # (Auto) [place] # (Auto) Seg Neutrophils % Seg Neuts % (Manual) Lymphocytes % (Manual) Monocytes % (Manual) Seg Neutrophils # Seg Neutrophils # Man Lymphocytes # (Manual) Monocytes # (Manual) PT INR ABG pH POC ABG pCO2 POC ABG pO2 ABG pO2 ABG HCO3 ABG O2 Saturation ABG Base Excess ABG Hemoglobin ABG Oxyhemoglobin ABG Sodium ABG Potassium ABG Chloride ABG Glucose Oxyhemoglobin Sodium Potassium Chloride Carbon Dioxide BUN Creatinine Glucose POC Glucose 37 L 34 L Lactic Acid Calcium Phosphorus Magnesium Total Bilirubin AST ALT Alkaline Phosphatase Total Protein Albumin Triglycerides Arterial Blood Glucose Arterial Blood Ionized Calcium Digoxin Crossmatch 01/14/21 01/14/21 01/14/21 17:02 18:34 23:17 WBC RBC Hgb Hct MCV MCHC RDW Plt Count Lymph % (Auto) [place] % (Auto) Lymph # (Auto) [place] # (Auto) Seg Neutrophils % Seg Neuts % (Manual) Lymphocytes % (Manual) Monocytes % (Manual) Seg Neutrophils # Seg Neutrophils # Man Lymphocytes # (Manual) Monocytes # (Manual) PT INR ABG pH POC ABG pCO2 POC ABG pO2 ABG pO2 ABG HCO3 ABG O2 Saturation ABG Base Excess ABG Hemoglobin ABG Oxyhemoglobin ABG Sodium ABG Potassium ABG Chloride ABG Glucose Oxyhemoglobin Sodium Potassium Chloride Carbon Dioxide BUN Creatinine Glucose POC Glucose 35 L 143 H 53 L Lactic Acid Calcium Phosphorus Magnesium Total Bilirubin AST ALT Alkaline Phosphatase Total Protein Albumin Triglycerides Arterial Blood Glucose Arterial Blood Ionized Calcium Digoxin Crossmatch 01/15/21 01/15/21 01/15/21 00:34 04:00 04:00 WBC 15.9 H RBC 3.02 L Hgb 9.3 L Hct 27.3 L MCV MCHC RDW 15.6 H Plt Count Lymph % (Auto) [place] % (Auto) Lymph # (Auto) [place] # (Auto) Seg Neutrophils % Seg Neuts % (Manual) Lymphocytes % (Manual) Monocytes % (Manual) Seg Neutrophils # Seg Neutrophils # Man Lymphocytes # (Manual) Monocytes # (Manual) PT INR ABG pH POC ABG pCO2 POC ABG pO2 ABG pO2 ABG HCO3 ABG O2 Saturation ABG Base Excess ABG Hemoglobin ABG Oxyhemoglobin ABG Sodium ABG Potassium ABG Chloride ABG Glucose Oxyhemoglobin Sodium 136 L Potassium Chloride 94.3 L Carbon Dioxide BUN 117 H Creatinine 9.9 H Glucose 217 H POC Glucose 181 H Lactic Acid Calcium 8.3 L Phosphorus Magnesium Total Bilirubin AST ALT Alkaline Phosphatase Total Protein Albumin Triglycerides Arterial Blood Glucose Arterial Blood Ionized Calcium Digoxin Crossmatch 01/15/21 01/15/21 01/15/21 05:29 11:51 23:13 WBC RBC Hgb Hct MCV MCHC RDW Plt Count Lymph % (Auto) [place] % (Auto) Lymph # (Auto) [place] # (Auto) Seg Neutrophils % Seg Neuts % (Manual) Lymphocytes % (Manual) Monocytes % (Manual) Seg Neutrophils # Seg Neutrophils # Man Lymphocytes # (Manual) Monocytes # (Manual) PT INR ABG pH POC ABG pCO2 POC ABG pO2 ABG pO2 ABG HCO3 ABG O2 Saturation ABG Base Excess ABG Hemoglobin ABG Oxyhemoglobin ABG Sodium ABG Potassium ABG Chloride ABG Glucose Oxyhemoglobin Sodium Potassium Chloride Carbon Dioxide BUN Creatinine Glucose POC Glucose 221 H 62 L 154 H Lactic Acid Calcium Phosphorus Magnesium Total Bilirubin AST ALT Alkaline Phosphatase Total Protein Albumin Triglycerides Arterial Blood Glucose Arterial Blood Ionized Calcium Digoxin Crossmatch 01/16/21 01/16/21 01/16/21 05:04 06:44 06:44 WBC 14.8 H RBC 2.76 L Hgb 8.2 L Hct 24.8 L MCV MCHC RDW 15.6 H Plt Count Lymph % (Auto) [place] % (Auto) Lymph # (Auto) [place] # (Auto) Seg Neutrophils % Seg Neuts % (Manual) Lymphocytes % (Manual) Monocytes % (Manual) Seg Neutrophils # Seg Neutrophils # Man Lymphocytes # (Manual) Monocytes # (Manual) PT INR ABG pH POC ABG pCO2 POC ABG pO2 ABG pO2 ABG HCO3 ABG O2 Saturation ABG Base Excess ABG Hemoglobin ABG Oxyhemoglobin ABG Sodium ABG Potassium ABG Chloride ABG Glucose Oxyhemoglobin Sodium 133 L Potassium Chloride 92.3 L Carbon Dioxide 20 L BUN 160 H Creatinine 12.1 H Glucose 177 H POC Glucose 168 H Lactic Acid Calcium 8.1 L Phosphorus 5.50 H Magnesium 2.50 H Total Bilirubin AST ALT Alkaline Phosphatase Total Protein Albumin Triglycerides Arterial Blood Glucose Arterial Blood Ionized Calcium Digoxin Crossmatch 01/16/21 01/17/21 01/17/21 23:20 05:14 05:14 WBC 12.7 H RBC 2.75 L Hgb 8.5 L Hct 24.6 L MCV MCHC 35 H RDW 15.4 H Plt Count Lymph % (Auto) [place] % (Auto) Lymph # (Auto) [place] # (Auto) Seg Neutrophils % Seg Neuts % (Manual) Lymphocytes % (Manual) Monocytes % (Manual) Seg Neutrophils # Seg Neutrophils # Man Lymphocytes # (Manual) Monocytes # (Manual) PT INR ABG pH POC ABG pCO2 POC ABG pO2 ABG pO2 ABG HCO3 ABG O2 Saturation ABG Base Excess ABG Hemoglobin ABG Oxyhemoglobin ABG Sodium ABG Potassium ABG Chloride ABG Glucose Oxyhemoglobin Sodium Potassium Chloride 97.9 L Carbon Dioxide BUN 84 H Creatinine 7.8 H Glucose 176 H POC Glucose 153 H Lactic Acid Calcium 8.0 L Phosphorus Magnesium Total Bilirubin AST ALT Alkaline Phosphatase Total Protein Albumin Triglycerides Arterial Blood Glucose Arterial Blood Ionized Calcium Digoxin Crossmatch 01/17/21 01/17/21 01/18/21 05:33 11:58 00:07 WBC RBC Hgb Hct MCV MCHC RDW Plt Count Lymph % (Auto) [place] % (Auto) Lymph # (Auto) [place] # (Auto) Seg Neutrophils % Seg Neuts % (Manual) Lymphocytes % (Manual) Monocytes % (Manual) Seg Neutrophils # Seg Neutrophils # Man Lymphocytes # (Manual) Monocytes # (Manual) PT INR ABG pH POC ABG pCO2 POC ABG pO2 ABG pO2 ABG HCO3 ABG O2 Saturation ABG Base Excess ABG Hemoglobin ABG Oxyhemoglobin ABG Sodium ABG Potassium ABG Chloride ABG Glucose Oxyhemoglobin Sodium Potassium Chloride Carbon Dioxide BUN Creatinine Glucose POC Glucose 162 H 64 L 146 H Lactic Acid Calcium Phosphorus Magnesium Total Bilirubin AST ALT Alkaline Phosphatase Total Protein Albumin Triglycerides Arterial Blood Glucose Arterial Blood Ionized Calcium Digoxin Crossmatch 01/18/21 01/18/21 01/18/21 04:19 04:19 06:15 WBC 15.6 H RBC 3.00 L Hgb 9.2 L Hct 26.8 L MCV MCHC 35 H RDW 15.6 H Plt Count Lymph % (Auto) [place] % (Auto) Lymph # (Auto) [place] # (Auto) Seg Neutrophils % Seg Neuts % (Manual) Lymphocytes % (Manual) Monocytes % (Manual) Seg Neutrophils # Seg Neutrophils # Man Lymphocytes # (Manual) Monocytes # (Manual) PT INR ABG pH POC ABG pCO2 POC ABG pO2 ABG pO2 ABG HCO3 ABG O2 Saturation ABG Base Excess ABG Hemoglobin ABG Oxyhemoglobin ABG Sodium ABG Potassium ABG Chloride ABG Glucose Oxyhemoglobin Sodium Potassium Chloride 96.2 L Carbon Dioxide BUN 117 H Creatinine 10.0 H Glucose 165 H POC Glucose 189 H Lactic Acid Calcium Phosphorus 4.70 H D Magnesium Total Bilirubin AST ALT Alkaline Phosphatase Total Protein Albumin Triglycerides Arterial Blood Glucose Arterial Blood Ionized Calcium Digoxin Crossmatch 01/18/21 01/18/21 01/18/21 11:53 13:44 15:08 WBC RBC Hgb Hct MCV MCHC RDW Plt Count Lymph % (Auto) [place] % (Auto) Lymph # (Auto) [place] # (Auto) Seg Neutrophils % Seg Neuts % (Manual) Lymphocytes % (Manual) Monocytes % (Manual) Seg Neutrophils # Seg Neutrophils # Man Lymphocytes # (Manual) Monocytes # (Manual) PT INR ABG pH POC ABG pCO2 POC ABG pO2 ABG pO2 ABG HCO3 ABG O2 Saturation ABG Base Excess ABG Hemoglobin ABG Oxyhemoglobin ABG Sodium ABG Potassium ABG Chloride ABG Glucose Oxyhemoglobin Sodium Potassium Chloride Carbon Dioxide BUN Creatinine Glucose POC Glucose 69 L 50 L 56 L Lactic Acid Calcium Phosphorus Magnesium Total Bilirubin AST ALT Alkaline Phosphatase Total Protein Albumin Triglycerides Arterial Blood Glucose Arterial Blood Ionized Calcium Digoxin Crossmatch 01/18/21 01/19/21 01/19/21 17:50 04:55 08:56 WBC 12.7 H RBC 2.89 L Hgb 8.7 L Hct 25.6 L MCV MCHC RDW 15.5 H Plt Count Lymph % (Auto) [place] % (Auto) Lymph # (Auto) [place] # (Auto) Seg Neutrophils % Seg Neuts % (Manual) Lymphocytes % (Manual) Monocytes % (Manual) Seg Neutrophils # Seg Neutrophils # Man Lymphocytes # (Manual) Monocytes # (Manual) PT INR ABG pH POC ABG pCO2 POC ABG pO2 ABG pO2 ABG HCO3 ABG O2 Saturation ABG Base Excess ABG Hemoglobin ABG Oxyhemoglobin ABG Sodium ABG Potassium ABG Chloride ABG Glucose Oxyhemoglobin Sodium Potassium Chloride Carbon Dioxide BUN Creatinine Glucose POC Glucose 137 H 120 H Lactic Acid Calcium Phosphorus Magnesium Total Bilirubin AST ALT Alkaline Phosphatase Total Protein Albumin Triglycerides Arterial Blood Glucose Arterial Blood Ionized Calcium Digoxin Crossmatch 01/19/21 01/19/21 01/19/21 08:56 11:33 17:32 WBC RBC Hgb Hct MCV MCHC RDW Plt Count Lymph % (Auto) [place] % (Auto) Lymph # (Auto) [place] # (Auto) Seg Neutrophils % Seg Neuts % (Manual) Lymphocytes % (Manual) Monocytes % (Manual) Seg Neutrophils # Seg Neutrophils # Man Lymphocytes # (Manual) Monocytes # (Manual) PT INR ABG pH POC ABG pCO2 POC ABG pO2 ABG pO2 ABG HCO3 ABG O2 Saturation ABG Base Excess ABG Hemoglobin ABG Oxyhemoglobin ABG Sodium ABG Potassium ABG Chloride ABG Glucose Oxyhemoglobin Sodium Potassium Chloride Carbon Dioxide BUN 66 H Creatinine 7.7 H Glucose 119 H POC Glucose 160 H 125 H Lactic Acid Calcium 8.3 L Phosphorus Magnesium Total Bilirubin AST ALT Alkaline Phosphatase Total Protein Albumin Triglycerides Arterial Blood Glucose Arterial Blood Ionized Calcium Digoxin Crossmatch 01/19/21 01/20/21 01/20/21 23:30 03:35 03:35 WBC 12.0 H RBC 2.62 L Hgb 8.3 L Hct 23.2 L MCV MCHC 36 H RDW Plt Count Lymph % (Auto) [place] % (Auto) Lymph # (Auto) [place] # (Auto) Seg Neutrophils % Seg Neuts % (Manual) Lymphocytes % (Manual) Monocytes % (Manual) Seg Neutrophils # Seg Neutrophils # Man Lymphocytes # (Manual) Monocytes # (Manual) PT INR ABG pH POC ABG pCO2 POC ABG pO2 ABG pO2 ABG HCO3 ABG O2 Saturation ABG Base Excess ABG Hemoglobin ABG Oxyhemoglobin ABG Sodium ABG Potassium ABG Chloride ABG Glucose Oxyhemoglobin Sodium Potassium Chloride Carbon Dioxide BUN 46 H Creatinine 5.9 H Glucose 128 H POC Glucose 127 H Lactic Acid Calcium Phosphorus Magnesium Total Bilirubin AST ALT Alkaline Phosphatase Total Protein Albumin Triglycerides Arterial Blood Glucose Arterial Blood Ionized Calcium Digoxin Crossmatch 01/20/21 01/20/21 06:19 11:55 WBC RBC Hgb Hct MCV MCHC RDW Plt Count Lymph % (Auto) [place] % (Auto) Lymph # (Auto) [place] # (Auto) Seg Neutrophils % Seg Neuts % (Manual) Lymphocytes % (Manual) Monocytes % (Manual) Seg Neutrophils # Seg Neutrophils # Man Lymphocytes # (Manual) Monocytes # (Manual) PT INR ABG pH POC ABG pCO2 POC ABG pO2 ABG pO2 ABG HCO3 ABG O2 Saturation ABG Base Excess ABG Hemoglobin ABG Oxyhemoglobin ABG Sodium ABG Potassium ABG Chloride ABG Glucose Oxyhemoglobin Sodium Potassium Chloride Carbon Dioxide BUN Creatinine Glucose POC Glucose 119 H 128 H Lactic Acid Calcium Phosphorus Magnesium Total Bilirubin AST ALT Alkaline Phosphatase Total Protein Albumin Triglycerides Arterial Blood Glucose Arterial Blood Ionized Calcium Digoxin Crossmatch Chest x-ray: image reviewed Allied health notes reviewed: nursing
--- NOTE | 2021-01-20 15:42 | Progress Note ---
Assessment and Plan Cultures: 12/22/2020 blood culture: Streptococcus bovis, Prevotella 12/22/2020 PD fluid culture: No growth 12/24/2020 tracheal aspirate culture: No growth 12/24/2020 blood culture: No growth 12/31/2020 sputum culture: No growth A/P: 60-year-old male with ESRD on PD, Crohn's disease, CHF, gastroesophageal reflux disease was admitted to the hospital with complaints of abdominal pain and fever: #Severe sepsis with shock: improved. Secondary to small bowel obstruction/necrotic bowel with associated peritonitis. Status post exploratory laparotomy on 12/23/2020 with extensive lysis, primary anastomosis, found to have necrotic segment of small bowel. #Small bowel obstruction/necrotic bowel: with concern for PD associated peritonitis: Nephrology and general surgery following. Status post exploratory laparotomy on 12/23/2020 with extensive lysis, primary anastomosis, found to have necrotic segment of small bowel. PD catheter remains in place. S/p ex lap, resection of perforated anastamosis, washout and abthera wound vac placement on 01/01. Repeat CT abdomen showed no new abscesses, noted small free fluid. S/p Exploratory laparotomy, Right hemicolectomy, Peritoneal lavage, Partial omentectomy, ABThera wound VAC placement on 01/03/2021. Complicated intra- abdominal situation per d/w Dr. Sanchez, plan to continue IV abx for now, has limited surgical options at this time. #Streptococcus bovis bacteremia and Prevotella bacteremia: secondary to above. TTE without obvious vegetations. Repeat blood cultures negative. #ESRD: Renally dose antibiotics. Used to be on PD. On HD. #Acute respiratory failure: off the vent. #Anemia: Severe. Recs: -continue IV Zosyn, plan to stop at 3 weeks from last surgery end date: 01/24/2021 Yesika Denny MD, FACP [facility] ([facility] O: [phone] F: [phone] Subjective Date of service: 01/20/21 Principal diagnosis: Ac hypoxemic resp failure; Severe Sepsis; Peritonitis; Acute SBO; ESRD; CHF Interval history: Afebrile. Has no complaints, asking for water and ice chips. Has NG to suction. Objective - Exam Narrative Exam: Physical Exam: Constitutional: awake alert, NG tube + Head, Ears, Nose: Normocephalic, atraumatic. External ears, nose normal Eyes: Conjunctivae/corneas clear. No icterus. No ptosis. Neck: supple Cardiovascular: S1, S2 + Respiratory: AE fair bilaterally GI: VAC +, bowel sounds + Musculoskeletal: No pedal edema, no cyanosis. Skin: No rash or abscess Hem/Lymphatic: No palpable cervical or supraclavicular nodes. No lymphangitis Psych: calm, no agitation Neurological: awake, alert, oriented, answering questions. - Constitutional Vitals: Vital Signs Temp Pulse Resp BP Pulse Ox 99.8 F H 65 23 146/71 97 01/20/21 12:00 01/20/21 14:00 01/20/21 14:00 01/20/21 14:00 01/20/21 14:00 Temperature -Last 24 Hours Temperature 99.8 F Temperature 97.7 F Temperature 98.5 F Temperature 98.8 F Temperature 99.1 F Temperature 97.9 F - Labs CBC & Chem 7: 01/20/21 03:35 01/20/21 03:35 Labs: Abnormal lab results 01/19/21 01/19/21 01/20/21 Range/Units 17:32 23:30 03:35 WBC 12.0 H (4.5-11.0) K/mm3 RBC 2.62 L (3.65-5.03) M/mm3 Hgb 8.3 L (11.8-15.2) gm/dl Hct 23.2 L (35.5-45.6) % MCHC 36 H (32-34) % BUN (9-20) mg/dL Creatinine (0.8-1.3) mg/dL Glucose (75-100) mg/dL POC Glucose 125 H 127 H (70-105) mg/dL 01/20/21 01/20/21 01/20/21 Range/Units 03:35 06:19 11:55 WBC (4.5-11.0) K/mm3 RBC (3.65-5.03) M/mm3 Hgb (11.8-15.2) gm/dl Hct (35.5-45.6) % MCHC (32-34) % BUN 46 H (9-20) mg/dL Creatinine 5.9 H (0.8-1.3) mg/dL Glucose 128 H (75-100) mg/dL POC Glucose 119 H 128 H (70-105) mg/dL
[2021-01-20] MEDS ORDERED: TOTAL PARENTERAL NUTRITION 2,016 ML IV SCH (20:00)
[2021-01-20] MEDS ORDERED: FAT EMULSIONS 20% 250 ML IV SCH (20:00)
[2021-01-20] MEDS: HYDROmorphone 1 MG/1 ML INJ IV PRN (20:23)
[2021-01-20] MEDS: EPOETIN ALFA-EPBX 10,000 UNIT/1 ML VIAL SUB-Q PRN (21:39)
[2021-01-20] MEDS: INSULIN GLARGINE 100 UNITS/ML SUB-Q SCH (23:09)
[2021-01-21] MEDS: INSULIN LISPRO 100 UNIT/ML SUB-Q SCH ×5 (00:05→17:55)
[2021-01-21] MEDS: hydrALAZINE 20 MG/1 ML INJ IV SCH ×7 (01:30→21:45)
[2021-01-21] MEDS: METOPROLOL TARTRATE 5 MG/5 ML INJ IV SCH ×7 (01:31→21:47)
[2021-01-21] MEDS: PIPERACIL-TAZO 2.25 GM/50 ML 2.25 GM/50 ML BAG IV SCH ×4 (03:34→20:56)
[2021-01-21] MEDS: ACETAMINOPHEN 650 MG RECT SUPP PR PRN (05:28)
[2021-01-21] MEDS ORDERED: MAGNESIUM SULFATE 1 GM in SODIUM CHLORIDE 0.9% 50 ML IV ONE (08:19)
[2021-01-21] MEDS: SCOPOLAMINE TRANSDERMAL PATCH 72 HR TD SCH (10:12)
[2021-01-21] MEDS: FAMOTIDINE 20 MG/2 ML INJ IV SCH ×2 (10:12→22:15)
[2021-01-21] MEDS: HEPARIN 5,000 UNIT/1 ML VIAL SUB-Q SCH ×2 (10:12→21:45)
--- NOTE | 2021-01-21 10:40 | Progress Note ---
Assessment and Plan Cultures: 12/22/2020 blood culture: Streptococcus bovis, Prevotella 12/22/2020 PD fluid culture: No growth 12/24/2020 tracheal aspirate culture: No growth 12/24/2020 blood culture: No growth 12/31/2020 sputum culture: No growth A/P: 60-year-old male with ESRD on PD, Crohn's disease, CHF, gastroesophageal reflux disease was admitted to the hospital with complaints of abdominal pain and fever: #Severe sepsis with shock: improved. Secondary to small bowel obstruction/necrotic bowel with associated peritonitis. Status post exploratory laparotomy on 12/23/2020 with extensive lysis, primary anastomosis, found to have necrotic segment of small bowel. #Small bowel obstruction/necrotic bowel: with concern for PD associated peritonitis: Nephrology and general surgery following. Status post exploratory laparotomy on 12/23/2020 with extensive lysis, primary anastomosis, found to have necrotic segment of small bowel. PD catheter remains in place. S/p ex lap, resection of perforated anastamosis, washout and abthera wound vac placement on 01/01. Repeat CT abdomen showed no new abscesses, noted small free fluid. S/p Exploratory laparotomy, Right hemicolectomy, Peritoneal lavage, Partial omentectomy, ABThera wound VAC placement on 01/03/2021. Complicated intra- abdominal situation per d/w Dr. Sanchez, plan to continue IV abx for now, has limited surgical options at this time. #Streptococcus bovis bacteremia and Prevotella bacteremia: secondary to above. TTE without obvious vegetations. Repeat blood cultures negative. #ESRD: Renally dose antibiotics. Used to be on PD. On HD. #Acute respiratory failure: off the vent. #Anemia: Severe. Recs: -continue IV Zosyn, plan to stop at 3 weeks from last surgery (end date: 01/24/2021) Yesika Denny MD, FACP [facility] ([facility] O: [phone] F: [phone] Subjective Date of service: 01/21/21 Principal diagnosis: Ac hypoxemic resp failure; Severe Sepsis; Peritonitis; Acute SBO; ESRD; CHF Interval history: Afebrile. NG suction +. Objective - Exam Narrative Exam: Physical Exam: Constitutional: awake alert, NG tube + Head, Ears, Nose: Normocephalic, atraumatic. External ears, nose normal Eyes: Conjunctivae/corneas clear. No icterus. No ptosis. Neck: supple Cardiovascular: S1, S2 + Respiratory: AE fair bilaterally GI: VAC +, bowel sounds + Musculoskeletal: No pedal edema, no cyanosis. Skin: No rash or abscess Hem/Lymphatic: No palpable cervical or supraclavicular nodes. No lymphangitis Psych: calm, no agitation Neurological: awake, alert, oriented. - Constitutional Vitals: Vital Signs Temp Pulse Resp BP Pulse Ox 99.2 F 68 22 134/65 98 01/21/21 08:00 01/21/21 10:13 01/21/21 10:00 01/21/21 10:13 01/21/21 07:00 Temperature -Last 24 Hours Temperature 99.2 F Temperature 98.5 F Temperature 98.0 F Temperature 98.0 F Temperature 97.9 F Temperature 98.1 F Temperature 97.9 F Temperature 98.3 F Temperature 99.8 F - Labs CBC & Chem 7: 01/20/21 03:35 01/21/21 04:39 Labs: Abnormal lab results 01/20/21 01/20/21 01/20/21 Range/Units 11:55 18:00 23:26 BUN (9-20) mg/dL Creatinine (0.8-1.3) mg/dL Glucose (75-100) mg/dL POC Glucose 128 H 115 H 108 H (70-105) mg/dL Phosphorus (2.5-4.5) mg/dL Magnesium (1.7-2.3) mg/dL Alkaline Phosphatase (35-129) units/L Total Protein (6.3-8.2) g/dL Albumin (3.9-5) g/dL 01/21/21 Range/Units 04:39 BUN 37 H (9-20) mg/dL Creatinine 5.3 H (0.8-1.3) mg/dL Glucose 109 H (75-100) mg/dL POC Glucose (70-105) mg/dL Phosphorus 2.10 L (2.5-4.5) mg/dL Magnesium 1.50 L (1.7-2.3) mg/dL Alkaline Phosphatase 143 H (35-129) units/L Total Protein 6.1 L (6.3-8.2) g/dL Albumin 3.0 L (3.9-5) g/dL
[2021-01-21] MEDS: HYDROmorphone 1 MG/1 ML INJ IV PRN (10:49)
--- NOTE | 2021-01-21 11:03 | Progress Note ---
Assessment and Plan Acute hypoxemic respiratory failure, s/p mechanical ventilatory support. Severe Sepsis with septic shock, resolved Peritonitis Acute small-bowel obstruction with tissue necrosis. End-stage renal disease, on dialysis. Hypertension. Crohn's disease. Gastroesophageal reflux disease. Heart failure with reduced ejection fraction. Hyperkalemia. Anemia that is normocytic. Lactic acidosis. Oropharyngeal dysphagia Continue all current care as documented -Surgical recommendation of strict n.p.o. except for small amount of ice as patient has already failed to anastomosis and he is at risk for additional surgery with tissues were extremely friable from previous scar. He continues on octreotide drip to slow down GI output HARIS drain remains in place with NG suction for decompression. -Continue IV Zosyn, plan to stop at 3 weeks from last surgery end date: 01/24/2021 -Continue TPN. - continue to titrate supplemental oxygen for target SpO2 89-92% - continue bronchodilators with pulmonary hygiene per RT - HD/UF per nephrology prescription for toxin and volume control - avoid nephrotoxins, renally dose all medications - continue accuchecks with glycemic control per SSI (Target blood glucose of 140-180 mg/dL; avoid hypoglycemia) - continue to avoid benzodiazepines, reduce the possibility of delirium - prn analgesia per CPOT score - Maintenance of sleep-wake cycle, avoid delirium - Stress ulcer and VTE prophylaxis - continue mobility protocols for pressure ulcer prophylaxis - Monitor hemodynamics closely - continue other care per attending / other consultants CONDITION: FAIR PROGNOSIS: GUARDED CODE STATUS: FULL CODE Subjective Date of service: 01/21/21 Principal diagnosis: Ac hypoxemic resp failure; Severe Sepsis; Peritonitis; Acute SBO; ESRD; CHF Interval history: Patient is seen today for: Ac hypoxemic resp failure; Severe Sepsis; Peritonitis; Acute SBO; ESRD on Dialysis; HTN; Crohn's disease; HFrEF Seen and examined at bedside; 24hour events reviewed; nursing and respiratory care staff consulted; no adverse overnight events reported to me; resting in bed; remains on supplemental oxygen; per RN he gets combative and abusive at times He denies any chest pain, no shortness of breath, no fevers or chills. Objective Vital Signs - 12hr 01/20/21 01/20/21 01/20/21 23:21 23:25 23:34 Temperature 98.0 F Pulse Rate 72 Pulse Rate [ 62 From Monitor] Respiratory 24 Rate Respiratory Rate [Anterior Abdomen] Blood Pressure 132/72 O2 Sat by Pulse Oximetry 01/21/21 01/21/21 01/21/21 00:00 01:30 01:31 Temperature Pulse Rate 59 L 58 L 58 L Pulse Rate [ From Monitor] Respiratory 18 Rate Respiratory Rate [Anterior Abdomen] Blood Pressure 128/66 135/68 O2 Sat by Pulse Oximetry 01/21/21 01/21/21 01/21/21 02:01 03:25 03:30 Temperature 98.5 F Pulse Rate 67 Pulse Rate [ 62 From Monitor] Respiratory 22 Rate Respiratory Rate [Anterior Abdomen] Blood Pressure 131/63 O2 Sat by Pulse Oximetry 01/21/21 01/21/21 01/21/21 04:00 04:01 05:28 Temperature Pulse Rate 65 68 Pulse Rate [ From Monitor] Respiratory 19 19 Rate Respiratory Rate [Anterior Abdomen] Blood Pressure 131/63 O2 Sat by Pulse Oximetry 01/21/21 01/21/21 01/21/21 05:39 06:01 07:00 Temperature Pulse Rate 59 L 62 Pulse Rate [ 67 From Monitor] Respiratory 13 18 Rate Respiratory Rate [Anterior Abdomen] Blood Pressure 129/72 134/65 O2 Sat by Pulse 98 Oximetry 01/21/21 01/21/21 01/21/21 08:00 09:55 10:00 Temperature 99.2 F Pulse Rate 69 58 L 63 Pulse Rate [ From Monitor] Respiratory 23 22 Rate Respiratory 16 Rate [Anterior Abdomen] Blood Pressure 123/70 134/65 128/69 O2 Sat by Pulse Oximetry 01/21/21 01/21/21 01/21/21 10:11 10:13 10:49 Temperature Pulse Rate 68 68 Pulse Rate [ From Monitor] Respiratory 14 Rate Respiratory Rate [Anterior Abdomen] Blood Pressure 134/65 134/65 O2 Sat by Pulse Oximetry Constitutional: no acute distress, other (elderly male with normal respiratory e ffort at rest) Eyes: non-icteric ENT: oropharynx dry, oropharyngeal exudate pre Neck: supple, no lymphadenopathy, no JVD Effort: normal Ascultation: Bilateral: clear, diminished breath sounds, rales, rhonchi Percussion: Bilateral: not dull Cardiovascular: regular rate and rhythm, other (S1,S2) Gastrointestinal: hypoactive bowel sounds, soft, non-tender, non-distended (protuberant), other (Midline abdominal incision ) Integumentary: other (Midline abdominal incision ) Extremities: no cyanosis, no edema, pulses normal, no ischemia or petechiae Neurologic: non-focal exam (grossly), pupils equal and round, CN II-XII normal Psychiatric: mood appropriate, affect normal CBC and BMP: 01/20/21 03:35 01/22/21 04:00 ABG, PT/INR, D-dimer: ABG ABG pH 7.345 pH Units (7.350-7.450) L 01/07/21 17:14 POC ABG pCO2 41.4 mmHg (32.0-48.0) 01/07/21 03:07 ABG pCO2 40.3 mm Hg 01/07/21 17:14 POC ABG pO2 94.5 mmHg (83-108) 01/07/21 03:07 ABG pO2 67.4 mm Hg (80.0-90.0) L 01/07/21 17:14 POC ABG HCO3 22.7 01/07/21 03:07 ABG O2 Saturation 94.3 % (95.0-99.0) L 01/07/21 17:14 PT/INR, D-dimer PT 16.9 Sec. (12.2-14.9) H 01/01/21 12:45 INR 1.39 (0.87-1.13) H 01/01/21 12:45 Abnormal lab findings: Abnormal Labs 12/22/20 12/22/20 12/22/20 14:38 14:38 14:38 WBC RBC Hgb 11.2 L Hct 35.0 L MCV MCHC RDW 16.7 H Plt Count Lymph % (Auto) [place] % (Auto) Lymph # (Auto) [place] # (Auto) Seg Neutrophils % Seg Neuts % (Manual) 94.0 H Lymphocytes % (Manual) 5.0 L Monocytes % (Manual) Seg Neutrophils # Seg Neutrophils # Man Lymphocytes # (Manual) 0.3 L Monocytes # (Manual) PT INR ABG pH POC ABG pCO2 POC ABG pO2 ABG pO2 ABG HCO3 ABG O2 Saturation ABG Base Excess ABG Hemoglobin ABG Oxyhemoglobin ABG Sodium ABG Potassium ABG Chloride ABG Glucose Oxyhemoglobin Sodium Potassium Chloride Carbon Dioxide BUN 58 H Creatinine 13.2 H Glucose 113 H POC Glucose Lactic Acid 3.60 H* Calcium Phosphorus Magnesium Total Bilirubin 1.30 H AST ALT Alkaline Phosphatase 155 H Total Protein Albumin Triglycerides Arterial Blood Glucose Arterial Blood Ionized Calcium Digoxin Crossmatch 12/22/20 12/22/20 12/23/20 16:26 17:47 05:22 WBC RBC Hgb Hct MCV MCHC RDW Plt Count Lymph % (Auto) [place] % (Auto) Lymph # (Auto) [place] # (Auto) Seg Neutrophils % Seg Neuts % (Manual) Lymphocytes % (Manual) Monocytes % (Manual) Seg Neutrophils # Seg Neutrophils # Man Lymphocytes # (Manual) Monocytes # (Manual) PT INR ABG pH POC ABG pCO2 POC ABG pO2 ABG pO2 ABG HCO3 ABG O2 Saturation ABG Base Excess ABG Hemoglobin ABG Oxyhemoglobin ABG Sodium ABG Potassium ABG Chloride ABG Glucose Oxyhemoglobin Sodium Potassium Chloride Carbon Dioxide BUN Creatinine Glucose POC Glucose Lactic Acid 2.80 H* 3.10 H* 2.30 H* Calcium Phosphorus Magnesium Total Bilirubin AST ALT Alkaline Phosphatase Total Protein Albumin Triglycerides Arterial Blood Glucose Arterial Blood Ionized Calcium Digoxin Crossmatch 12/23/20 12/23/20 12/23/20 05:22 05:22 06:35 WBC 12.1 H RBC Hgb 11.0 L Hct 33.7 L MCV MCHC RDW 16.9 H Plt Count Lymph % (Auto) [place] % (Auto) Lymph # (Auto) [place] # (Auto) Seg Neutrophils % Seg Neuts % (Manual) 93.0 H Lymphocytes % (Manual) 1.0 L Monocytes % (Manual) Seg Neutrophils # Seg Neutrophils # Man 11.3 H Lymphocytes # (Manual) 0.1 L Monocytes # (Manual) PT INR ABG pH POC ABG pCO2 POC ABG pO2 ABG pO2 ABG HCO3 ABG O2 Saturation ABG Base Excess ABG Hemoglobin ABG Oxyhemoglobin ABG Sodium ABG Potassium ABG Chloride ABG Glucose Oxyhemoglobin Sodium Potassium 5.7 H D Chloride Carbon Dioxide BUN 73 H Creatinine 14.2 H Glucose POC Glucose Lactic Acid 2.30 H* Calcium 7.9 L Phosphorus Magnesium Total Bilirubin 1.40 H AST 119 H ALT 130 H Alkaline Phosphatase 183 H Total Protein 6.1 L Albumin 3.6 L Triglycerides Arterial Blood Glucose Arterial Blood Ionized Calcium Digoxin Crossmatch 12/23/20 12/23/20 12/23/20 11:40 13:53 16:47 WBC RBC Hgb 10.0 L Hct 30.4 L MCV MCHC RDW Plt Count Lymph % (Auto) [place] % (Auto) Lymph # (Auto) [place] # (Auto) Seg Neutrophils % Seg Neuts % (Manual) Lymphocytes % (Manual) Monocytes % (Manual) Seg Neutrophils # Seg Neutrophils # Man Lymphocytes # (Manual) Monocytes # (Manual) PT INR ABG pH POC ABG pCO2 POC ABG pO2 137.5 H ABG pO2 ABG HCO3 ABG O2 Saturation ABG Base Excess ABG Hemoglobin 9.7 L ABG Oxyhemoglobin ABG Sodium 134.1 L ABG Potassium 6.6 H ABG Chloride ABG Glucose 103 H Oxyhemoglobin Sodium Potassium Chloride Carbon Dioxide BUN Creatinine Glucose POC Glucose Lactic Acid Calcium Phosphorus Magnesium Total Bilirubin AST ALT Alkaline Phosphatase Total Protein Albumin Triglycerides Arterial Blood Glucose 103 H Arterial Blood Ionized Calcium 3.8 L Digoxin Crossmatch See Detail 12/23/20 12/23/20 12/24/20 20:35 20:40 01:20 WBC RBC Hgb Hct MCV MCHC RDW Plt Count Lymph % (Auto) [place] % (Auto) Lymph # (Auto) [place] # (Auto) Seg Neutrophils % Seg Neuts % (Manual) Lymphocytes % (Manual) Monocytes % (Manual) Seg Neutrophils # Seg Neutrophils # Man Lymphocytes # (Manual) Monocytes # (Manual) PT INR ABG pH 7.252 L POC ABG pCO2 POC ABG pO2 ABG pO2 50.1 L ABG HCO3 ABG O2 Saturation 81.1 L ABG Base Excess -5.9 L ABG Hemoglobin 12.1 L ABG Oxyhemoglobin ABG Sodium ABG Potassium ABG Chloride ABG Glucose Oxyhemoglobin 78.6 L Sodium 134 L Potassium 6.9 H* D 6.3 H* Chloride Carbon Dioxide 18 L 20 L BUN 87 H 91 H Creatinine 15.3 H 15.3 H Glucose 103 H POC Glucose Lactic Acid Calcium 6.9 L 7.5 L Phosphorus Magnesium Total Bilirubin AST ALT Alkaline Phosphatase Total Protein Albumin Triglycerides Arterial Blood Glucose Arterial Blood Ionized Calcium Digoxin Crossmatch 12/24/20 12/24/20 12/24/20 04:00 10:29 10:29 WBC RBC 3.49 L Hgb 10.5 L Hct 31.2 L MCV MCHC RDW 17.5 H Plt Count 124 L Lymph % (Auto) 3.7 L [place] % (Auto) 9.8 H Lymph # (Auto) 0.2 L [place] # (Auto) Seg Neutrophils % 85.9 H Seg Neuts % (Manual) Lymphocytes % (Manual) Monocytes % (Manual) Seg Neutrophils # Seg Neutrophils # Man Lymphocytes # (Manual) Monocytes # (Manual) PT INR ABG pH POC ABG pCO2 28.1 L POC ABG pO2 ABG pO2 ABG HCO3 ABG O2 Saturation ABG Base Excess ABG Hemoglobin ABG Oxyhemoglobin ABG Sodium 133.9 L ABG Potassium 5.3 H ABG Chloride 108.0 H ABG Glucose Oxyhemoglobin Sodium Potassium 5.6 H Chloride Carbon Dioxide 19 L BUN 99 H Creatinine 16.9 H Glucose 52 L POC Glucose Lactic Acid Calcium 7.6 L Phosphorus Magnesium Total Bilirubin 3.50 H AST 67 H ALT 71 H Alkaline Phosphatase Total Protein 3.5 L D Albumin 2.1 L Triglycerides Arterial Blood Glucose Arterial Blood Ionized Calcium 4.0 L Digoxin Crossmatch 12/25/20 12/25/20 12/25/20 03:33 04:00 04:00 WBC 3.8 L RBC 2.90 L Hgb 8.6 L Hct 25.7 L MCV MCHC RDW 16.7 H Plt Count 113 L Lymph % (Auto) [place] % (Auto) Lymph # (Auto) [place] # (Auto) Seg Neutrophils % Seg Neuts % (Manual) Lymphocytes % (Manual) Monocytes % (Manual) Seg Neutrophils # Seg Neutrophils # Man Lymphocytes # (Manual) Monocytes # (Manual) PT INR ABG pH 7.544 H POC ABG pCO2 28.2 L POC ABG pO2 62.8 L ABG pO2 ABG HCO3 ABG O2 Saturation ABG Base Excess ABG Hemoglobin 9.3 L ABG Oxyhemoglobin 93.0 L ABG Sodium 130.3 L ABG Potassium ABG Chloride ABG Glucose 97 H Oxyhemoglobin Sodium Potassium Chloride Carbon Dioxide BUN 62 H Creatinine 11.4 H Glucose POC Glucose Lactic Acid Calcium 7.7 L Phosphorus 5.00 H Magnesium Total Bilirubin AST ALT Alkaline Phosphatase Total Protein Albumin Triglycerides Arterial Blood Glucose 97 H Arterial Blood Ionized Calcium 3.9 L Digoxin Crossmatch 12/26/20 12/26/20 12/27/20 04:46 Unknown 03:40 WBC 4.1 L RBC 2.61 L Hgb 7.8 L Hct 23.4 L MCV MCHC RDW 17.1 H Plt Count 119 L Lymph % (Auto) 5.3 L [place] % (Auto) 10.6 H Lymph # (Auto) 0.2 L [place] # (Auto) Seg Neutrophils % 78.8 H Seg Neuts % (Manual) Lymphocytes % (Manual) Monocytes % (Manual) Seg Neutrophils # Seg Neutrophils # Man Lymphocytes # (Manual) Monocytes # (Manual) PT INR ABG pH 7.333 L 7.332 L POC ABG pCO2 POC ABG pO2 ABG pO2 ABG HCO3 26.9 H ABG O2 Saturation ABG Base Excess -2.4 L ABG Hemoglobin 6.8 L 7.2 L ABG Oxyhemoglobin ABG Sodium ABG Potassium ABG Chloride ABG Glucose Oxyhemoglobin 93.0 L 93.1 L Sodium Potassium Chloride Carbon Dioxide BUN Creatinine Glucose POC Glucose Lactic Acid Calcium Phosphorus Magnesium Total Bilirubin AST ALT Alkaline Phosphatase Total Protein Albumin Triglycerides Arterial Blood Glucose Arterial Blood Ionized Calcium Digoxin Crossmatch 12/27/20 12/27/20 12/27/20 06:40 06:40 11:22 WBC 4.4 L RBC 2.49 L Hgb 7.4 L Hct 22.4 L MCV MCHC RDW 17.1 H Plt Count 111 L Lymph % (Auto) 6.7 L [place] % (Auto) 12.6 H Lymph # (Auto) 0.3 L [place] # (Auto) Seg Neutrophils % 77.6 H Seg Neuts % (Manual) Lymphocytes % (Manual) Monocytes % (Manual) Seg Neutrophils # Seg Neutrophils # Man Lymphocytes # (Manual) Monocytes # (Manual) PT INR ABG pH POC ABG pCO2 POC ABG pO2 ABG pO2 ABG HCO3 ABG O2 Saturation ABG Base Excess ABG Hemoglobin ABG Oxyhemoglobin ABG Sodium ABG Potassium ABG Chloride ABG Glucose Oxyhemoglobin Sodium Potassium Chloride Carbon Dioxide BUN 64 H Creatinine 9.8 H Glucose 147 H POC Glucose 134 H Lactic Acid Calcium 8.3 L Phosphorus 5.00 H Magnesium Total Bilirubin 3.70 H AST 72 H ALT Alkaline Phosphatase 142 H Total Protein 5.1 L D Albumin 2.9 L Triglycerides Arterial Blood Glucose Arterial Blood Ionized Calcium Digoxin Crossmatch 12/27/20 12/27/20 12/28/20 17:29 23:31 03:09 WBC RBC Hgb Hct MCV MCHC RDW Plt Count Lymph % (Auto) [place] % (Auto) Lymph # (Auto) [place] # (Auto) Seg Neutrophils % Seg Neuts % (Manual) Lymphocytes % (Manual) Monocytes % (Manual) Seg Neutrophils # Seg Neutrophils # Man Lymphocytes # (Manual) Monocytes # (Manual) PT INR ABG pH 7.474 H POC ABG pCO2 POC ABG pO2 ABG pO2 ABG HCO3 ABG O2 Saturation ABG Base Excess ABG Hemoglobin 7.8 L ABG Oxyhemoglobin ABG Sodium ABG Potassium ABG Chloride ABG Glucose Oxyhemoglobin Sodium Potassium Chloride Carbon Dioxide BUN Creatinine Glucose POC Glucose 121 H 131 H Lactic Acid Calcium Phosphorus Magnesium Total Bilirubin AST ALT Alkaline Phosphatase Total Protein Albumin Triglycerides Arterial Blood Glucose Arterial Blood Ionized Calcium Digoxin Crossmatch 12/28/20 12/28/20 12/28/20 05:37 05:40 05:40 WBC 4.3 L RBC 2.40 L Hgb 7.2 L Hct 21.5 L MCV MCHC RDW 17.4 H Plt Count 112 L Lymph % (Auto) 6.5 L [place] % (Auto) 16.7 H Lymph # (Auto) 0.3 L [place] # (Auto) Seg Neutrophils % 71.1 H Seg Neuts % (Manual) Lymphocytes % (Manual) Monocytes % (Manual) Seg Neutrophils # Seg Neutrophils # Man Lymphocytes # (Manual) Monocytes # (Manual) PT INR ABG pH POC ABG pCO2 POC ABG pO2 ABG pO2 ABG HCO3 ABG O2 Saturation ABG Base Excess ABG Hemoglobin ABG Oxyhemoglobin ABG Sodium ABG Potassium ABG Chloride ABG Glucose Oxyhemoglobin Sodium Potassium Chloride Carbon Dioxide BUN 85 H Creatinine 11.5 H Glucose 132 H POC Glucose 121 H Lactic Acid Calcium 8.2 L Phosphorus Magnesium 2.40 H Total Bilirubin 3.80 H AST 70 H ALT Alkaline Phosphatase 176 H Total Protein 5.0 L Albumin 2.9 L Triglycerides Arterial Blood Glucose Arterial Blood Ionized Calcium Digoxin Crossmatch 12/28/20 12/28/20 12/28/20 11:34 15:00 17:35 WBC RBC Hgb Hct MCV MCHC RDW Plt Count Lymph % (Auto) [place] % (Auto) Lymph # (Auto) [place] # (Auto) Seg Neutrophils % Seg Neuts % (Manual) Lymphocytes % (Manual) Monocytes % (Manual) Seg Neutrophils # Seg Neutrophils # Man Lymphocytes # (Manual) Monocytes # (Manual) PT INR ABG pH 7.461 H POC ABG pCO2 POC ABG pO2 72.2 L ABG pO2 ABG HCO3 ABG O2 Saturation ABG Base Excess ABG Hemoglobin 8.2 L ABG Oxyhemoglobin 93.6 L ABG Sodium 134.1 L ABG Potassium 3.2 L ABG Chloride ABG Glucose 135 H Oxyhemoglobin Sodium Potassium Chloride Carbon Dioxide BUN Creatinine Glucose POC Glucose 137 H 144 H Lactic Acid Calcium Phosphorus Magnesium Total Bilirubin AST ALT Alkaline Phosphatase Total Protein Albumin Triglycerides Arterial Blood Glucose 135 H Arterial Blood Ionized Calcium 4.4 L Digoxin Crossmatch 12/28/20 12/28/20 12/29/20 19:44 Unknown 00:21 WBC RBC Hgb Hct MCV MCHC RDW Plt Count Lymph % (Auto) [place] % (Auto) Lymph # (Auto) [place] # (Auto) Seg Neutrophils % Seg Neuts % (Manual) Lymphocytes % (Manual) Monocytes % (Manual) Seg Neutrophils # Seg Neutrophils # Man Lymphocytes # (Manual) Monocytes # (Manual) PT INR ABG pH 7.474 H POC ABG pCO2 POC ABG pO2 ABG pO2 ABG HCO3 ABG O2 Saturation ABG Base Excess ABG Hemoglobin 7.8 L ABG Oxyhemoglobin ABG Sodium 133.2 L ABG Potassium ABG Chloride ABG Glucose 139 H Oxyhemoglobin Sodium 135 L Potassium Chloride 96.6 L Carbon Dioxide BUN 47 H Creatinine 7.4 H Glucose 130 H POC Glucose 142 H Lactic Acid Calcium 8.3 L Phosphorus Magnesium Total Bilirubin AST ALT Alkaline Phosphatase Total Protein Albumin Triglycerides Arterial Blood Glucose 139 H Arterial Blood Ionized Calcium 4.3 L Digoxin Crossmatch 12/29/20 12/29/20 12/29/20 05:16 05:16 05:26 WBC RBC 2.53 L Hgb 7.7 L Hct 22.8 L MCV MCHC RDW 17.0 H Plt Count 130 L Lymph % (Auto) [place] % (Auto) Lymph # (Auto) [place] # (Auto) Seg Neutrophils % Seg Neuts % (Manual) 79.0 H Lymphocytes % (Manual) 9.0 L Monocytes % (Manual) Seg Neutrophils # Seg Neutrophils # Man Lymphocytes # (Manual) 0.6 L Monocytes # (Manual) PT INR ABG pH POC ABG pCO2 POC ABG pO2 ABG pO2 ABG HCO3 ABG O2 Saturation ABG Base Excess ABG Hemoglobin ABG Oxyhemoglobin ABG Sodium ABG Potassium ABG Chloride ABG Glucose Oxyhemoglobin Sodium Potassium 3.4 L Chloride 96.6 L Carbon Dioxide BUN 59 H Creatinine 8.3 H Glucose 127 H POC Glucose 141 H Lactic Acid Calcium 8.2 L Phosphorus Magnesium Total Bilirubin 3.00 H AST 88 H ALT Alkaline Phosphatase 188 H Total Protein 5.1 L Albumin 2.8 L Triglycerides Arterial Blood Glucose Arterial Blood Ionized Calcium Digoxin Crossmatch 12/29/20 12/29/20 12/29/20 11:33 17:29 23:22 WBC RBC Hgb Hct MCV MCHC RDW Plt Count Lymph % (Auto) [place] % (Auto) Lymph # (Auto) [place] # (Auto) Seg Neutrophils % Seg Neuts % (Manual) Lymphocytes % (Manual) Monocytes % (Manual) Seg Neutrophils # Seg Neutrophils # Man Lymphocytes # (Manual) Monocytes # (Manual) PT INR ABG pH POC ABG pCO2 POC ABG pO2 ABG pO2 ABG HCO3 ABG O2 Saturation ABG Base Excess ABG Hemoglobin ABG Oxyhemoglobin ABG Sodium ABG Potassium ABG Chloride ABG Glucose Oxyhemoglobin Sodium Potassium Chloride Carbon Dioxide BUN Creatinine Glucose POC Glucose 144 H 130 H 117 H Lactic Acid Calcium Phosphorus Magnesium Total Bilirubin AST ALT Alkaline Phosphatase Total Protein Albumin Triglycerides Arterial Blood Glucose Arterial Blood Ionized Calcium Digoxin Crossmatch 12/30/20 12/30/20 12/30/20 05:23 08:15 09:00 WBC RBC Hgb Hct MCV MCHC RDW Plt Count Lymph % (Auto) [place] % (Auto) Lymph # (Auto) [place] # (Auto) Seg Neutrophils % Seg Neuts % (Manual) Lymphocytes % (Manual) Monocytes % (Manual) Seg Neutrophils # Seg Neutrophils # Man Lymphocytes # (Manual) Monocytes # (Manual) PT INR ABG pH POC ABG pCO2 POC ABG pO2 ABG pO2 ABG HCO3 ABG O2 Saturation ABG Base Excess ABG Hemoglobin ABG Oxyhemoglobin ABG Sodium ABG Potassium ABG Chloride ABG Glucose Oxyhemoglobin Sodium 135 L Potassium Chloride 95.9 L Carbon Dioxide BUN 85 H Creatinine 10.6 H Glucose 128 H POC Glucose 135 H 127 H Lactic Acid Calcium 8.3 L Phosphorus Magnesium Total Bilirubin 2.40 H AST 85 H ALT Alkaline Phosphatase 216 H Total Protein 5.3 L Albumin 2.6 L Triglycerides 155 H Arterial Blood Glucose Arterial Blood Ionized Calcium Digoxin Crossmatch 12/30/20 12/30/20 12/30/20 09:00 11:53 15:49 WBC RBC 2.61 L Hgb 7.8 L Hct 23.7 L MCV MCHC RDW 17.3 H Plt Count Lymph % (Auto) [place] % (Auto) Lymph # (Auto) [place] # (Auto) Seg Neutrophils % Seg Neuts % (Manual) Lymphocytes % (Manual) Monocytes % (Manual) Seg Neutrophils # Seg Neutrophils # Man Lymphocytes # (Manual) Monocytes # (Manual) PT INR ABG pH POC ABG pCO2 POC ABG pO2 ABG pO2 ABG HCO3 ABG O2 Saturation ABG Base Excess ABG Hemoglobin ABG Oxyhemoglobin ABG Sodium ABG Potassium ABG Chloride ABG Glucose Oxyhemoglobin Sodium Potassium Chloride Carbon Dioxide BUN Creatinine Glucose POC Glucose 155 H 146 H Lactic Acid Calcium Phosphorus Magnesium Total Bilirubin AST ALT Alkaline Phosphatase Total Protein Albumin Triglycerides Arterial Blood Glucose Arterial Blood Ionized Calcium Digoxin Crossmatch 12/30/20 12/30/20 12/31/20 17:53 23:45 03:56 WBC RBC Hgb Hct MCV MCHC RDW Plt Count Lymph % (Auto) [place] % (Auto) Lymph # (Auto) [place] # (Auto) Seg Neutrophils % Seg Neuts % (Manual) Lymphocytes % (Manual) Monocytes % (Manual) Seg Neutrophils # Seg Neutrophils # Man Lymphocytes # (Manual) Monocytes # (Manual) PT INR ABG pH POC ABG pCO2 POC ABG pO2 49.4 L ABG pO2 ABG HCO3 ABG O2 Saturation ABG Base Excess ABG Hemoglobin 10.3 L ABG Oxyhemoglobin 84.2 L ABG Sodium 133.1 L ABG Potassium ABG Chloride ABG Glucose 173 H Oxyhemoglobin Sodium Potassium Chloride Carbon Dioxide BUN Creatinine Glucose POC Glucose 139 H 173 H Lactic Acid Calcium Phosphorus Magnesium Total Bilirubin AST ALT Alkaline Phosphatase Total Protein Albumin Triglycerides Arterial Blood Glucose 173 H Arterial Blood Ionized Calcium Digoxin Crossmatch 12/31/20 12/31/20 12/31/20 05:07 06:51 06:51 WBC 20.3 H RBC 3.32 L Hgb 9.8 L Hct 30.3 L D MCV MCHC RDW 17.3 H Plt Count Lymph % (Auto) [place] % (Auto) Lymph # (Auto) [place] # (Auto) Seg Neutrophils % Seg Neuts % (Manual) 87.0 H Lymphocytes % (Manual) 10.0 L Monocytes % (Manual) Seg Neutrophils # Seg Neutrophils # Man 17.7 H Lymphocytes # (Manual) Monocytes # (Manual) PT INR ABG pH POC ABG pCO2 POC ABG pO2 ABG pO2 ABG HCO3 ABG O2 Saturation ABG Base Excess ABG Hemoglobin ABG Oxyhemoglobin ABG Sodium ABG Potassium ABG Chloride ABG Glucose Oxyhemoglobin Sodium Potassium 5.2 H D Chloride Carbon Dioxide BUN 62 H Creatinine 8.4 H Glucose 116 H POC Glucose 120 H Lactic Acid Calcium Phosphorus Magnesium 1.60 L Total Bilirubin AST ALT Alkaline Phosphatase Total Protein Albumin Triglycerides Arterial Blood Glucose Arterial Blood Ionized Calcium Digoxin Crossmatch 12/31/20 12/31/20 12/31/20 09:38 12:19 12:22 WBC RBC Hgb Hct MCV MCHC RDW Plt Count Lymph % (Auto) [place] % (Auto) Lymph # (Auto) [place] # (Auto) Seg Neutrophils % Seg Neuts % (Manual) Lymphocytes % (Manual) Monocytes % (Manual) Seg Neutrophils # Seg Neutrophils # Man Lymphocytes # (Manual) Monocytes # (Manual) PT INR ABG pH POC ABG pCO2 POC ABG pO2 ABG pO2 354.0 H ABG HCO3 ABG O2 Saturation 99.6 H ABG Base Excess ABG Hemoglobin 9.1 L ABG Oxyhemoglobin ABG Sodium ABG Potassium ABG Chloride ABG Glucose Oxyhemoglobin Sodium Potassium 5.2 H Chloride Carbon Dioxide BUN Creatinine Glucose POC Glucose 132 H Lactic Acid Calcium Phosphorus Magnesium Total Bilirubin AST ALT Alkaline Phosphatase Total Protein Albumin Triglycerides Arterial Blood Glucose Arterial Blood Ionized Calcium Digoxin Crossmatch 12/31/20 01/01/21 01/01/21 23:23 03:03 05:04 WBC RBC Hgb Hct MCV MCHC RDW Plt Count Lymph % (Auto) [place] % (Auto) Lymph # (Auto) [place] # (Auto) Seg Neutrophils % Seg Neuts % (Manual) Lymphocytes % (Manual) Monocytes % (Manual) Seg Neutrophils # Seg Neutrophils # Man Lymphocytes # (Manual) Monocytes # (Manual) PT INR ABG pH POC ABG pCO2 POC ABG pO2 79.6 L ABG pO2 ABG HCO3 ABG O2 Saturation ABG Base Excess ABG Hemoglobin 9.2 L ABG Oxyhemoglobin ABG Sodium 131.6 L ABG Potassium 5.8 H ABG Chloride ABG Glucose 177 H Oxyhemoglobin Sodium Potassium Chloride Carbon Dioxide BUN Creatinine Glucose POC Glucose 174 H 167 H Lactic Acid Calcium Phosphorus Magnesium Total Bilirubin AST ALT Alkaline Phosphatase Total Protein Albumin Triglycerides Arterial Blood Glucose 177 H Arterial Blood Ionized Calcium Digoxin Crossmatch 01/01/21 01/01/21 01/01/21 07:31 07:31 11:31 WBC 26.1 H RBC 2.95 L Hgb 8.6 L Hct 27.1 L MCV MCHC RDW 18.2 H Plt Count Lymph % (Auto) [place] % (Auto) Lymph # (Auto) [place] # (Auto) Seg Neutrophils % Seg Neuts % (Manual) 96.0 H Lymphocytes % (Manual) 4.0 L Monocytes % (Manual) Seg Neutrophils # Seg Neutrophils # Man 25.1 H Lymphocytes # (Manual) 1.0 L Monocytes # (Manual) PT INR ABG pH POC ABG pCO2 POC ABG pO2 ABG pO2 ABG HCO3 ABG O2 Saturation ABG Base Excess ABG Hemoglobin ABG Oxyhemoglobin ABG Sodium ABG Potassium ABG Chloride ABG Glucose Oxyhemoglobin Sodium Potassium 6.0 H Chloride Carbon Dioxide 21 L BUN 89 H Creatinine 10.5 H Glucose 179 H POC Glucose Lactic Acid Calcium Phosphorus Magnesium Total Bilirubin AST ALT Alkaline Phosphatase Total Protein Albumin Triglycerides Arterial Blood Glucose Arterial Blood Ionized Calcium Digoxin Crossmatch See Detail 01/01/21 01/01/21 01/01/21 11:51 12:45 16:52 WBC RBC Hgb Hct MCV MCHC RDW Plt Count Lymph % (Auto) [place] % (Auto) Lymph # (Auto) [place] # (Auto) Seg Neutrophils % Seg Neuts % (Manual) Lymphocytes % (Manual) Monocytes % (Manual) Seg Neutrophils # Seg Neutrophils # Man Lymphocytes # (Manual) Monocytes # (Manual) PT 16.9 H INR 1.39 H ABG pH POC ABG pCO2 POC ABG pO2 ABG pO2 ABG HCO3 ABG O2 Saturation ABG Base Excess ABG Hemoglobin ABG Oxyhemoglobin ABG Sodium ABG Potassium ABG Chloride ABG Glucose Oxyhemoglobin Sodium Potassium Chloride Carbon Dioxide BUN Creatinine Glucose POC Glucose 157 H 177 H Lactic Acid Calcium Phosphorus Magnesium Total Bilirubin AST ALT Alkaline Phosphatase Total Protein Albumin Triglycerides Arterial Blood Glucose Arterial Blood Ionized Calcium Digoxin Crossmatch 01/01/21 01/01/21 01/01/21 17:58 17:58 20:12 WBC 26.9 H RBC 3.14 L Hgb 9.3 L Hct 29.6 L MCV MCHC RDW 17.5 H Plt Count Lymph % (Auto) [place] % (Auto) Lymph # (Auto) [place] # (Auto) Seg Neutrophils % Seg Neuts % (Manual) 84.0 H Lymphocytes % (Manual) 4.0 L Monocytes % (Manual) 12.0 H Seg Neutrophils # Seg Neutrophils # Man 22.6 H Lymphocytes # (Manual) 1.1 L Monocytes # (Manual) 3.2 H PT INR ABG pH POC ABG pCO2 POC ABG pO2 ABG pO2 ABG HCO3 ABG O2 Saturation ABG Base Excess ABG Hemoglobin ABG Oxyhemoglobin ABG Sodium ABG Potassium ABG Chloride ABG Glucose Oxyhemoglobin Sodium 136 L Potassium 6.2 H* Chloride Carbon Dioxide 21 L BUN 92 H Creatinine 10.8 H Glucose 171 H POC Glucose 288 H Lactic Acid Calcium Phosphorus Magnesium Total Bilirubin 2.10 H AST 223 H ALT 100 H Alkaline Phosphatase 206 H Total Protein 4.8 L Albumin 1.9 L Triglycerides Arterial Blood Glucose Arterial Blood Ionized Calcium Digoxin Crossmatch 01/02/21 01/02/21 01/02/21 00:12 00:45 03:05 WBC RBC Hgb Hct MCV MCHC RDW Plt Count Lymph % (Auto) [place] % (Auto) Lymph # (Auto) [place] # (Auto) Seg Neutrophils % Seg Neuts % (Manual) Lymphocytes % (Manual) Monocytes % (Manual) Seg Neutrophils # Seg Neutrophils # Man Lymphocytes # (Manual) Monocytes # (Manual) PT INR ABG pH POC ABG pCO2 POC ABG pO2 81.8 L ABG pO2 ABG HCO3 ABG O2 Saturation ABG Base Excess ABG Hemoglobin 8.0 L ABG Oxyhemoglobin ABG Sodium 129.8 L ABG Potassium 5.4 H ABG Chloride ABG Glucose 257 H Oxyhemoglobin Sodium 136 L Potassium 5.8 H Chloride 96.6 L Carbon Dioxide BUN 95 H Creatinine 11.2 H Glucose 238 H POC Glucose 223 H Lactic Acid Calcium Phosphorus Magnesium Total Bilirubin AST ALT Alkaline Phosphatase Total Protein Albumin Triglycerides Arterial Blood Glucose 257 H Arterial Blood Ionized Calcium 4.0 L Digoxin Crossmatch 01/02/21 01/02/21 01/02/21 06:25 08:00 08:00 WBC 17.5 H RBC 2.31 L Hgb 6.7 L Hct 22.1 L D MCV 96 H MCHC 30 L RDW 18.4 H Plt Count Lymph % (Auto) [place] % (Auto) Lymph # (Auto) [place] # (Auto) Seg Neutrophils % Seg Neuts % (Manual) Lymphocytes % (Manual) Monocytes % (Manual) Seg Neutrophils # Seg Neutrophils # Man Lymphocytes # (Manual) Monocytes # (Manual) PT INR ABG pH POC ABG pCO2 POC ABG pO2 ABG pO2 ABG HCO3 ABG O2 Saturation ABG Base Excess ABG Hemoglobin ABG Oxyhemoglobin ABG Sodium ABG Potassium ABG Chloride ABG Glucose Oxyhemoglobin Sodium 134 L Potassium 5.3 H Chloride 92.9 L Carbon Dioxide BUN 101 H Creatinine 10.9 H Glucose 560 H* POC Glucose 239 H Lactic Acid Calcium 7.6 L Phosphorus 6.50 H Magnesium Total Bilirubin AST ALT Alkaline Phosphatase Total Protein Albumin Triglycerides Arterial Blood Glucose Arterial Blood Ionized Calcium Digoxin Crossmatch 01/02/21 01/02/21 01/02/21 11:26 15:00 17:57 WBC RBC Hgb Hct MCV MCHC RDW Plt Count Lymph % (Auto) [place] % (Auto) Lymph # (Auto) [place] # (Auto) Seg Neutrophils % Seg Neuts % (Manual) Lymphocytes % (Manual) Monocytes % (Manual) Seg Neutrophils # Seg Neutrophils # Man Lymphocytes # (Manual) Monocytes # (Manual) PT INR ABG pH POC ABG pCO2 POC ABG pO2 ABG pO2 ABG HCO3 ABG O2 Saturation ABG Base Excess ABG Hemoglobin ABG Oxyhemoglobin ABG Sodium ABG Potassium ABG Chloride ABG Glucose Oxyhemoglobin Sodium Potassium Chloride Carbon Dioxide BUN Creatinine Glucose 241 H POC Glucose 205 H 272 H Lactic Acid Calcium Phosphorus Magnesium Total Bilirubin AST ALT Alkaline Phosphatase Total Protein Albumin Triglycerides Arterial Blood Glucose Arterial Blood Ionized Calcium Digoxin Crossmatch 01/02/21 01/02/21 01/03/21 23:25 23:43 03:45 WBC RBC Hgb Hct MCV MCHC RDW Plt Count Lymph % (Auto) [place] % (Auto) Lymph # (Auto) [place] # (Auto) Seg Neutrophils % Seg Neuts % (Manual) Lymphocytes % (Manual) Monocytes % (Manual) Seg Neutrophils # Seg Neutrophils # Man Lymphocytes # (Manual) Monocytes # (Manual) PT INR ABG pH POC ABG pCO2 48.3 H POC ABG pO2 134.4 H 79.7 L ABG pO2 ABG HCO3 ABG O2 Saturation ABG Base Excess ABG Hemoglobin 7.7 L 8.6 L ABG Oxyhemoglobin ABG Sodium 131.8 L 130.4 L ABG Potassium ABG Chloride 97.0 L ABG Glucose 218 H 238 H Oxyhemoglobin Sodium Potassium Chloride Carbon Dioxide BUN Creatinine Glucose POC Glucose 218 H Lactic Acid Calcium Phosphorus Magnesium Total Bilirubin AST ALT Alkaline Phosphatase Total Protein Albumin Triglycerides Arterial Blood Glucose 218 H 238 H Arterial Blood Ionized Calcium 4.1 L 4.0 L Digoxin Crossmatch 01/03/21 01/03/21 01/03/21 04:37 04:37 05:39 WBC 15.2 H RBC 2.38 L Hgb 7.3 L Hct 21.6 L MCV MCHC RDW 16.6 H Plt Count Lymph % (Auto) [place] % (Auto) Lymph # (Auto) [place] # (Auto) Seg Neutrophils % Seg Neuts % (Manual) Lymphocytes % (Manual) Monocytes % (Manual) Seg Neutrophils # Seg Neutrophils # Man Lymphocytes # (Manual) Monocytes # (Manual) PT INR ABG pH POC ABG pCO2 POC ABG pO2 ABG pO2 ABG HCO3 ABG O2 Saturation ABG Base Excess ABG Hemoglobin ABG Oxyhemoglobin ABG Sodium ABG Potassium ABG Chloride ABG Glucose Oxyhemoglobin Sodium 136 L Potassium Chloride 94.5 L Carbon Dioxide BUN 69 H Creatinine 8.0 H Glucose 219 H POC Glucose 222 H Lactic Acid Calcium 7.8 L Phosphorus 4.80 H D Magnesium Total Bilirubin AST ALT Alkaline Phosphatase Total Protein Albumin Triglycerides Arterial Blood Glucose Arterial Blood Ionized Calcium Digoxin Crossmatch 01/03/21 01/03/21 01/03/21 11:29 18:49 23:37 WBC RBC Hgb Hct MCV MCHC RDW Plt Count Lymph % (Auto) [place] % (Auto) Lymph # (Auto) [place] # (Auto) Seg Neutrophils % Seg Neuts % (Manual) Lymphocytes % (Manual) Monocytes % (Manual) Seg Neutrophils # Seg Neutrophils # Man Lymphocytes # (Manual) Monocytes # (Manual) PT INR ABG pH POC ABG pCO2 POC ABG pO2 ABG pO2 ABG HCO3 ABG O2 Saturation ABG Base Excess ABG Hemoglobin ABG Oxyhemoglobin ABG Sodium ABG Potassium ABG Chloride ABG Glucose Oxyhemoglobin Sodium Potassium Chloride Carbon Dioxide BUN Creatinine Glucose POC Glucose 232 H 129 H 140 H Lactic Acid Calcium Phosphorus Magnesium Total Bilirubin AST ALT Alkaline Phosphatase Total Protein Albumin Triglycerides Arterial Blood Glucose Arterial Blood Ionized Calcium Digoxin Crossmatch 01/04/21 01/04/21 01/04/21 03:22 04:38 04:38 WBC 11.1 H RBC 2.89 L Hgb 8.9 L Hct 26.2 L MCV MCHC RDW 16.1 H Plt Count Lymph % (Auto) [place] % (Auto) Lymph # (Auto) [place] # (Auto) Seg Neutrophils % Seg Neuts % (Manual) Lymphocytes % (Manual) Monocytes % (Manual) Seg Neutrophils # Seg Neutrophils # Man Lymphocytes # (Manual) Monocytes # (Manual) PT INR ABG pH POC ABG pCO2 POC ABG pO2 82.3 L ABG pO2 ABG HCO3 ABG O2 Saturation ABG Base Excess ABG Hemoglobin 8.9 L ABG Oxyhemoglobin ABG Sodium 130.5 L ABG Potassium ABG Chloride ABG Glucose 124 H Oxyhemoglobin Sodium Potassium Chloride 95.5 L Carbon Dioxide BUN 87 H Creatinine 9.7 H Glucose 118 H POC Glucose Lactic Acid Calcium 7.7 L Phosphorus Magnesium Total Bilirubin AST ALT Alkaline Phosphatase Total Protein Albumin Triglycerides Arterial Blood Glucose 124 H Arterial Blood Ionized Calcium 3.5 L Digoxin Crossmatch 01/04/21 01/04/21 01/04/21 05:39 12:04 18:04 WBC RBC Hgb Hct MCV MCHC RDW Plt Count Lymph % (Auto) [place] % (Auto) Lymph # (Auto) [place] # (Auto) Seg Neutrophils % Seg Neuts % (Manual) Lymphocytes % (Manual) Monocytes % (Manual) Seg Neutrophils # Seg Neutrophils # Man Lymphocytes # (Manual) Monocytes # (Manual) PT INR ABG pH POC ABG pCO2 POC ABG pO2 ABG pO2 ABG HCO3 ABG O2 Saturation ABG Base Excess ABG Hemoglobin ABG Oxyhemoglobin ABG Sodium ABG Potassium ABG Chloride ABG Glucose Oxyhemoglobin Sodium Potassium Chloride Carbon Dioxide BUN Creatinine Glucose POC Glucose 134 H 125 H 131 H Lactic Acid Calcium Phosphorus Magnesium Total Bilirubin AST ALT Alkaline Phosphatase Total Protein Albumin Triglycerides Arterial Blood Glucose Arterial Blood Ionized Calcium Digoxin Crossmatch 01/04/21 01/05/21 01/05/21 23:41 03:23 04:49 WBC RBC Hgb Hct MCV MCHC RDW Plt Count Lymph % (Auto) [place] % (Auto) Lymph # (Auto) [place] # (Auto) Seg Neutrophils % Seg Neuts % (Manual) Lymphocytes % (Manual) Monocytes % (Manual) Seg Neutrophils # Seg Neutrophils # Man Lymphocytes # (Manual) Monocytes # (Manual) PT INR ABG pH POC ABG pCO2 POC ABG pO2 62.8 L ABG pO2 ABG HCO3 ABG O2 Saturation ABG Base Excess ABG Hemoglobin 9.5 L ABG Oxyhemoglobin 92.0 L ABG Sodium 130.1 L ABG Potassium ABG Chloride ABG Glucose 148 H Oxyhemoglobin Sodium Potassium Chloride 96.9 L Carbon Dioxide BUN 57 H Creatinine 6.7 H Glucose 135 H POC Glucose 132 H Lactic Acid Calcium 8.0 L Phosphorus Magnesium Total Bilirubin AST ALT Alkaline Phosphatase Total Protein Albumin Triglycerides Arterial Blood Glucose 148 H Arterial Blood Ionized Calcium 4.1 L Digoxin Crossmatch 01/05/21 01/05/21 01/05/21 05:04 11:48 12:39 WBC RBC 3.03 L Hgb 9.3 L Hct 27.6 L MCV MCHC RDW 16.5 H Plt Count Lymph % (Auto) [place] % (Auto) Lymph # (Auto) [place] # (Auto) Seg Neutrophils % Seg Neuts % (Manual) Lymphocytes % (Manual) Monocytes % (Manual) Seg Neutrophils # Seg Neutrophils # Man Lymphocytes # (Manual) Monocytes # (Manual) PT INR ABG pH POC ABG pCO2 POC ABG pO2 ABG pO2 ABG HCO3 ABG O2 Saturation ABG Base Excess ABG Hemoglobin ABG Oxyhemoglobin ABG Sodium ABG Potassium ABG Chloride ABG Glucose Oxyhemoglobin Sodium Potassium Chloride Carbon Dioxide BUN Creatinine Glucose POC Glucose 147 H 162 H Lactic Acid Calcium Phosphorus Magnesium Total Bilirubin AST ALT Alkaline Phosphatase Total Protein Albumin Triglycerides Arterial Blood Glucose Arterial Blood Ionized Calcium Digoxin Crossmatch 01/05/21 01/05/21 01/06/21 17:50 23:32 04:15 WBC RBC Hgb Hct MCV MCHC RDW Plt Count Lymph % (Auto) [place] % (Auto) Lymph # (Auto) [place] # (Auto) Seg Neutrophils % Seg Neuts % (Manual) Lymphocytes % (Manual) Monocytes % (Manual) Seg Neutrophils # Seg Neutrophils # Man Lymphocytes # (Manual) Monocytes # (Manual) PT INR ABG pH POC ABG pCO2 POC ABG pO2 ABG pO2 191.0 H ABG HCO3 ABG O2 Saturation 99.2 H ABG Base Excess ABG Hemoglobin 9.0 L ABG Oxyhemoglobin ABG Sodium ABG Potassium ABG Chloride ABG Glucose Oxyhemoglobin Sodium Potassium Chloride Carbon Dioxide BUN Creatinine Glucose POC Glucose 155 H 115 H Lactic Acid Calcium Phosphorus Magnesium Total Bilirubin AST ALT Alkaline Phosphatase Total Protein Albumin Triglycerides Arterial Blood Glucose Arterial Blood Ionized Calcium Digoxin Crossmatch 05/01/06/21 01/06/21 04:45 05:56 07:03 WBC RBC 2.95 L Hgb 9.1 L Hct 26.8 L MCV MCHC RDW 16.8 H Plt Count Lymph % (Auto) [place] % (Auto) Lymph # (Auto) [place] # (Auto) Seg Neutrophils % Seg Neuts % (Manual) Lymphocytes % (Manual) Monocytes % (Manual) Seg Neutrophils # Seg Neutrophils # Man Lymphocytes # (Manual) Monocytes # (Manual) PT INR ABG pH POC ABG pCO2 POC ABG pO2 ABG pO2 ABG HCO3 ABG O2 Saturation ABG Base Excess ABG Hemoglobin ABG Oxyhemoglobin ABG Sodium ABG Potassium ABG Chloride ABG Glucose Oxyhemoglobin Sodium 135 L Potassium Chloride 95.9 L Carbon Dioxide BUN 82 H Creatinine 8.7 H Glucose 127 H POC Glucose 136 H Lactic Acid Calcium 8.3 L Phosphorus Magnesium Total Bilirubin AST ALT Alkaline Phosphatase Total Protein Albumin Triglycerides Arterial Blood Glucose Arterial Blood Ionized Calcium Digoxin Crossmatch 01/06/21 01/06/21 01/06/21 07:10 11:04 13:38 WBC RBC Hgb Hct MCV MCHC RDW Plt Count Lymph % (Auto) [place] % (Auto) Lymph # (Auto) [place] # (Auto) Seg Neutrophils % Seg Neuts % (Manual) Lymphocytes % (Manual) Monocytes % (Manual) Seg Neutrophils # Seg Neutrophils # Man Lymphocytes # (Manual) Monocytes # (Manual) PT INR ABG pH POC ABG pCO2 POC ABG pO2 ABG pO2 ABG HCO3 ABG O2 Saturation ABG Base Excess ABG Hemoglobin ABG Oxyhemoglobin ABG Sodium ABG Potassium ABG Chloride ABG Glucose Oxyhemoglobin Sodium Potassium Chloride Carbon Dioxide BUN Creatinine Glucose POC Glucose 178 H 155 H Lactic Acid Calcium Phosphorus Magnesium Total Bilirubin AST ALT Alkaline Phosphatase Total Protein Albumin Triglycerides Arterial Blood Glucose Arterial Blood Ionized Calcium Digoxin Crossmatch See Detail 01/06/21 01/06/21 01/07/21 17:35 22:21 03:07 WBC RBC Hgb Hct MCV MCHC RDW Plt Count Lymph % (Auto) [place] % (Auto) Lymph # (Auto) [place] # (Auto) Seg Neutrophils % Seg Neuts % (Manual) Lymphocytes % (Manual) Monocytes % (Manual) Seg Neutrophils # Seg Neutrophils # Man Lymphocytes # (Manual) Monocytes # (Manual) PT INR ABG pH POC ABG pCO2 POC ABG pO2 ABG pO2 ABG HCO3 ABG O2 Saturation ABG Base Excess ABG Hemoglobin 11.9 L ABG Oxyhemoglobin ABG Sodium 135.6 L ABG Potassium ABG Chloride ABG Glucose 181 H Oxyhemoglobin Sodium Potassium Chloride Carbon Dioxide BUN Creatinine Glucose POC Glucose 138 H 202 H Lactic Acid Calcium Phosphorus Magnesium Total Bilirubin AST ALT Alkaline Phosphatase Total Protein Albumin Triglycerides Arterial Blood Glucose 181 H Arterial Blood Ionized Calcium 4.3 L Digoxin Crossmatch 01/07/21 01/07/21 01/07/21 04:50 05:21 08:37 WBC 12.4 H RBC Hgb 11.1 L Hct 33.3 L D MCV MCHC RDW 17.0 H Plt Count Lymph % (Auto) 3.2 L [place] % (Auto) 9.4 H Lymph # (Auto) 0.4 L [place] # (Auto) 1.2 H Seg Neutrophils % 86.6 H Seg Neuts % (Manual) Lymphocytes % (Manual) Monocytes % (Manual) Seg Neutrophils # 10.7 H Seg Neutrophils # Man Lymphocytes # (Manual) Monocytes # (Manual) PT INR ABG pH POC ABG pCO2 POC ABG pO2 ABG pO2 ABG HCO3 ABG O2 Saturation ABG Base Excess ABG Hemoglobin ABG Oxyhemoglobin ABG Sodium ABG Potassium ABG Chloride ABG Glucose Oxyhemoglobin Sodium Potassium Chloride Carbon Dioxide BUN 60 H Creatinine 6.3 H Glucose 154 H POC Glucose 177 H Lactic Acid Calcium 8.3 L Phosphorus Magnesium Total Bilirubin AST ALT Alkaline Phosphatase Total Protein Albumin Triglycerides Arterial Blood Glucose Arterial Blood Ionized Calcium Digoxin Crossmatch 01/07/21 01/07/21 01/07/21 11:21 12:19 17:11 WBC RBC Hgb Hct MCV MCHC RDW Plt Count Lymph % (Auto) [place] % (Auto) Lymph # (Auto) [place] # (Auto) Seg Neutrophils % Seg Neuts % (Manual) Lymphocytes % (Manual) Monocytes % (Manual) Seg Neutrophils # Seg Neutrophils # Man Lymphocytes # (Manual) Monocytes # (Manual) PT INR ABG pH POC ABG pCO2 POC ABG pO2 ABG pO2 ABG HCO3 ABG O2 Saturation ABG Base Excess ABG Hemoglobin ABG Oxyhemoglobin ABG Sodium ABG Potassium ABG Chloride ABG Glucose Oxyhemoglobin Sodium Potassium Chloride Carbon Dioxide BUN Creatinine Glucose POC Glucose 144 H 137 H 119 H Lactic Acid Calcium Phosphorus Magnesium Total Bilirubin AST ALT Alkaline Phosphatase Total Protein Albumin Triglycerides Arterial Blood Glucose Arterial Blood Ionized Calcium Digoxin Crossmatch 01/07/21 01/07/21 01/08/21 17:14 23:39 04:34 WBC RBC Hgb Hct MCV MCHC RDW Plt Count Lymph % (Auto) [place] % (Auto) Lymph # (Auto) [place] # (Auto) Seg Neutrophils % Seg Neuts % (Manual) Lymphocytes % (Manual) Monocytes % (Manual) Seg Neutrophils # Seg Neutrophils # Man Lymphocytes # (Manual) Monocytes # (Manual) PT INR ABG pH 7.345 L POC ABG pCO2 POC ABG pO2 ABG pO2 67.4 L ABG HCO3 ABG O2 Saturation 94.3 L ABG Base Excess -3.9 L ABG Hemoglobin 8.9 L ABG Oxyhemoglobin ABG Sodium ABG Potassium ABG Chloride ABG Glucose Oxyhemoglobin 92.3 L Sodium Potassium Chloride Carbon Dioxide 20 L BUN 93 H Creatinine 8.8 H Glucose 120 H POC Glucose 129 H Lactic Acid Calcium Phosphorus Magnesium Total Bilirubin AST ALT Alkaline Phosphatase 133 H Total Protein 5.4 L Albumin 1.9 L Triglycerides Arterial Blood Glucose Arterial Blood Ionized Calcium Digoxin Crossmatch 01/08/21 01/08/21 01/08/21 05:26 11:38 17:19 WBC RBC Hgb Hct MCV MCHC RDW Plt Count Lymph % (Auto) [place] % (Auto) Lymph # (Auto) [place] # (Auto) Seg Neutrophils % Seg Neuts % (Manual) Lymphocytes % (Manual) Monocytes % (Manual) Seg Neutrophils # Seg Neutrophils # Man Lymphocytes # (Manual) Monocytes # (Manual) PT INR ABG pH POC ABG pCO2 POC ABG pO2 ABG pO2 ABG HCO3 ABG O2 Saturation ABG Base Excess ABG Hemoglobin ABG Oxyhemoglobin ABG Sodium ABG Potassium ABG Chloride ABG Glucose Oxyhemoglobin Sodium Potassium Chloride Carbon Dioxide BUN Creatinine Glucose POC Glucose 125 H 146 H 136 H Lactic Acid Calcium Phosphorus Magnesium Total Bilirubin AST ALT Alkaline Phosphatase Total Protein Albumin Triglycerides Arterial Blood Glucose Arterial Blood Ionized Calcium Digoxin Crossmatch 01/08/21 01/09/21 01/09/21 23:52 05:13 05:21 WBC RBC Hgb Hct MCV MCHC RDW Plt Count Lymph % (Auto) [place] % (Auto) Lymph # (Auto) [place] # (Auto) Seg Neutrophils % Seg Neuts % (Manual) Lymphocytes % (Manual) Monocytes % (Manual) Seg Neutrophils # Seg Neutrophils # Man Lymphocytes # (Manual) Monocytes # (Manual) PT INR ABG pH POC ABG pCO2 POC ABG pO2 ABG pO2 ABG HCO3 ABG O2 Saturation ABG Base Excess ABG Hemoglobin ABG Oxyhemoglobin ABG Sodium ABG Potassium ABG Chloride ABG Glucose Oxyhemoglobin Sodium Potassium Chloride Carbon Dioxide 16 L BUN 123 H Creatinine 10.8 H Glucose 145 H POC Glucose 143 H 144 H Lactic Acid Calcium Phosphorus 5.00 H D Magnesium 2.40 H Total Bilirubin AST ALT Alkaline Phosphatase Total Protein Albumin Triglycerides Arterial Blood Glucose Arterial Blood Ionized Calcium Digoxin Crossmatch 01/09/21 01/09/21 01/09/21 12:08 17:20 23:56 WBC RBC Hgb Hct MCV MCHC RDW Plt Count Lymph % (Auto) [place] % (Auto) Lymph # (Auto) [place] # (Auto) Seg Neutrophils % Seg Neuts % (Manual) Lymphocytes % (Manual) Monocytes % (Manual) Seg Neutrophils # Seg Neutrophils # Man Lymphocytes # (Manual) Monocytes # (Manual) PT INR ABG pH POC ABG pCO2 POC ABG pO2 ABG pO2 ABG HCO3 ABG O2 Saturation ABG Base Excess ABG Hemoglobin ABG Oxyhemoglobin ABG Sodium ABG Potassium ABG Chloride ABG Glucose Oxyhemoglobin Sodium Potassium Chloride Carbon Dioxide BUN Creatinine Glucose POC Glucose 153 H 160 H 158 H Lactic Acid Calcium Phosphorus Magnesium Total Bilirubin AST ALT Alkaline Phosphatase Total Protein Albumin Triglycerides Arterial Blood Glucose Arterial Blood Ionized Calcium Digoxin Crossmatch 01/10/21 01/10/21 01/10/21 04:52 05:44 07:41 WBC RBC Hgb Hct MCV MCHC RDW Plt Count Lymph % (Auto) [place] % (Auto) Lymph # (Auto) [place] # (Auto) Seg Neutrophils % Seg Neuts % (Manual) Lymphocytes % (Manual) Monocytes % (Manual) Seg Neutrophils # Seg Neutrophils # Man Lymphocytes # (Manual) Monocytes # (Manual) PT INR ABG pH POC ABG pCO2 POC ABG pO2 ABG pO2 ABG HCO3 ABG O2 Saturation ABG Base Excess ABG Hemoglobin ABG Oxyhemoglobin ABG Sodium ABG Potassium ABG Chloride ABG Glucose Oxyhemoglobin Sodium 135 L Potassium 3.5 L D Chloride 95.0 L Carbon Dioxide 21 L BUN 93 H Creatinine 8.3 H Glucose 127 H POC Glucose 135 H 157 H Lactic Acid Calcium Phosphorus Magnesium Total Bilirubin AST ALT Alkaline Phosphatase Total Protein Albumin Triglycerides Arterial Blood Glucose Arterial Blood Ionized Calcium Digoxin Crossmatch 01/10/21 01/10/21 01/10/21 09:26 12:03 17:44 WBC 18.2 H RBC 3.14 L Hgb 9.7 L Hct 28.2 L MCV MCHC RDW 16.5 H Plt Count Lymph % (Auto) [place] % (Auto) Lymph # (Auto) [place] # (Auto) Seg Neutrophils % Seg Neuts % (Manual) 95.0 H Lymphocytes % (Manual) 3.0 L Monocytes % (Manual) Seg Neutrophils # Seg Neutrophils # Man 17.3 H Lymphocytes # (Manual) 0.5 L Monocytes # (Manual) PT INR ABG pH POC ABG pCO2 POC ABG pO2 ABG pO2 ABG HCO3 ABG O2 Saturation ABG Base Excess ABG Hemoglobin ABG Oxyhemoglobin ABG Sodium ABG Potassium ABG Chloride ABG Glucose Oxyhemoglobin Sodium Potassium Chloride Carbon Dioxide BUN Creatinine Glucose POC Glucose 163 H 171 H Lactic Acid Calcium Phosphorus Magnesium Total Bilirubin AST ALT Alkaline Phosphatase Total Protein Albumin Triglycerides Arterial Blood Glucose Arterial Blood Ionized Calcium Digoxin Crossmatch 01/10/21 01/11/21 01/11/21 23:50 05:18 05:18 WBC RBC Hgb Hct MCV MCHC RDW Plt Count Lymph % (Auto) [place] % (Auto) Lymph # (Auto) [place] # (Auto) Seg Neutrophils % Seg Neuts % (Manual) Lymphocytes % (Manual) Monocytes % (Manual) Seg Neutrophils # Seg Neutrophils # Man Lymphocytes # (Manual) Monocytes # (Manual) PT INR ABG pH POC ABG pCO2 POC ABG pO2 ABG pO2 ABG HCO3 ABG O2 Saturation ABG Base Excess ABG Hemoglobin ABG Oxyhemoglobin ABG Sodium ABG Potassium ABG Chloride ABG Glucose Oxyhemoglobin Sodium 136 L Potassium Chloride 94.6 L Carbon Dioxide 19 L BUN 145 H Creatinine 10.6 H Glucose 152 H POC Glucose 151 H Lactic Acid Calcium Phosphorus 6.00 H D Magnesium Total Bilirubin AST ALT Alkaline Phosphatase Total Protein Albumin Triglycerides Arterial Blood Glucose Arterial Blood Ionized Calcium Digoxin 0.8 L Crossmatch 01/11/21 01/11/21 01/11/21 05:18 05:19 11:28 WBC 17.4 H RBC 3.34 L Hgb 10.2 L Hct 29.7 L MCV MCHC RDW 15.9 H Plt Count Lymph % (Auto) [place] % (Auto) Lymph # (Auto) [place] # (Auto) Seg Neutrophils % Seg Neuts % (Manual) Lymphocytes % (Manual) Monocytes % (Manual) Seg Neutrophils # Seg Neutrophils # Man Lymphocytes # (Manual) Monocytes # (Manual) PT INR ABG pH POC ABG pCO2 POC ABG pO2 ABG pO2 ABG HCO3 ABG O2 Saturation ABG Base Excess ABG Hemoglobin ABG Oxyhemoglobin ABG Sodium ABG Potassium ABG Chloride ABG Glucose Oxyhemoglobin Sodium Potassium Chloride Carbon Dioxide BUN Creatinine Glucose POC Glucose 149 H 178 H Lactic Acid Calcium Phosphorus Magnesium Total Bilirubin AST ALT Alkaline Phosphatase Total Protein Albumin Triglycerides Arterial Blood Glucose Arterial Blood Ionized Calcium Digoxin Crossmatch 01/11/21 01/11/21 01/12/21 17:31 23:14 05:18 WBC RBC Hgb Hct MCV MCHC RDW Plt Count Lymph % (Auto) [place] % (Auto) Lymph # (Auto) [place] # (Auto) Seg Neutrophils % Seg Neuts % (Manual) Lymphocytes % (Manual) Monocytes % (Manual) Seg Neutrophils # Seg Neutrophils # Man Lymphocytes # (Manual) Monocytes # (Manual) PT INR ABG pH POC ABG pCO2 POC ABG pO2 ABG pO2 ABG HCO3 ABG O2 Saturation ABG Base Excess ABG Hemoglobin ABG Oxyhemoglobin ABG Sodium ABG Potassium ABG Chloride ABG Glucose Oxyhemoglobin Sodium Potassium Chloride Carbon Dioxide BUN Creatinine Glucose POC Glucose 158 H 145 H 148 H Lactic Acid Calcium Phosphorus Magnesium Total Bilirubin AST ALT Alkaline Phosphatase Total Protein Albumin Triglycerides Arterial Blood Glucose Arterial Blood Ionized Calcium Digoxin Crossmatch 01/12/21 01/12/21 01/12/21 06:50 10:45 13:34 WBC RBC Hgb Hct MCV MCHC RDW Plt Count Lymph % (Auto) [place] % (Auto) Lymph # (Auto) [place] # (Auto) Seg Neutrophils % Seg Neuts % (Manual) Lymphocytes % (Manual) Monocytes % (Manual) Seg Neutrophils # Seg Neutrophils # Man Lymphocytes # (Manual) Monocytes # (Manual) PT INR ABG pH POC ABG pCO2 POC ABG pO2 ABG pO2 ABG HCO3 ABG O2 Saturation ABG Base Excess ABG Hemoglobin ABG Oxyhemoglobin ABG Sodium ABG Potassium ABG Chloride ABG Glucose Oxyhemoglobin Sodium Potassium 2.9 L* D Chloride 94.8 L Carbon Dioxide BUN 102 H Creatinine 8.3 H Glucose 139 H POC Glucose 151 H 134 H Lactic Acid Calcium 8.1 L Phosphorus 5.00 H Magnesium Total Bilirubin AST ALT Alkaline Phosphatase Total Protein Albumin Triglycerides Arterial Blood Glucose Arterial Blood Ionized Calcium Digoxin Crossmatch 01/12/21 01/12/21 01/13/21 16:59 23:06 03:45 WBC RBC Hgb Hct MCV MCHC RDW Plt Count Lymph % (Auto) [place] % (Auto) Lymph # (Auto) [place] # (Auto) Seg Neutrophils % Seg Neuts % (Manual) Lymphocytes % (Manual) Monocytes % (Manual) Seg Neutrophils # Seg Neutrophils # Man Lymphocytes # (Manual) Monocytes # (Manual) PT INR ABG pH POC ABG pCO2 POC ABG pO2 ABG pO2 ABG HCO3 ABG O2 Saturation ABG Base Excess ABG Hemoglobin ABG Oxyhemoglobin ABG Sodium ABG Potassium ABG Chloride ABG Glucose Oxyhemoglobin Sodium 136 L Potassium 3.4 L Chloride 92.6 L Carbon Dioxide BUN 134 H Creatinine 10.4 H Glucose 126 H POC Glucose 108 H 135 H Lactic Acid Calcium 8.3 L Phosphorus 5.60 H Magnesium 1.50 L Total Bilirubin AST ALT Alkaline Phosphatase Total Protein Albumin Triglycerides Arterial Blood Glucose Arterial Blood Ionized Calcium Digoxin Crossmatch 01/13/21 01/13/21 01/13/21 03:45 05:55 11:59 WBC 17.6 H RBC 3.33 L Hgb 10.2 L Hct 29.5 L MCV MCHC 35 H RDW 15.5 H Plt Count Lymph % (Auto) 4.4 L [place] % (Auto) 10.3 H Lymph # (Auto) 0.8 L [place] # (Auto) 1.8 H Seg Neutrophils % 84.2 H Seg Neuts % (Manual) Lymphocytes % (Manual) Monocytes % (Manual) Seg Neutrophils # 14.8 H Seg Neutrophils # Man Lymphocytes # (Manual) Monocytes # (Manual) PT INR ABG pH POC ABG pCO2 POC ABG pO2 ABG pO2 ABG HCO3 ABG O2 Saturation ABG Base Excess ABG Hemoglobin ABG Oxyhemoglobin ABG Sodium ABG Potassium ABG Chloride ABG Glucose Oxyhemoglobin Sodium Potassium Chloride Carbon Dioxide BUN Creatinine Glucose POC Glucose 134 H 141 H Lactic Acid Calcium Phosphorus Magnesium Total Bilirubin AST ALT Alkaline Phosphatase Total Protein Albumin Triglycerides Arterial Blood Glucose Arterial Blood Ionized Calcium Digoxin Crossmatch 01/13/21 01/14/21 01/14/21 23:09 05:39 05:57 WBC RBC Hgb Hct MCV MCHC RDW Plt Count Lymph % (Auto) [place] % (Auto) Lymph # (Auto) [place] # (Auto) Seg Neutrophils % Seg Neuts % (Manual) Lymphocytes % (Manual) Monocytes % (Manual) Seg Neutrophils # Seg Neutrophils # Man Lymphocytes # (Manual) Monocytes # (Manual) PT INR ABG pH POC ABG pCO2 POC ABG pO2 ABG pO2 ABG HCO3 ABG O2 Saturation ABG Base Excess ABG Hemoglobin ABG Oxyhemoglobin ABG Sodium ABG Potassium ABG Chloride ABG Glucose Oxyhemoglobin Sodium Potassium Chloride 97.6 L Carbon Dioxide BUN 81 H Creatinine 7.6 H Glucose 193 H POC Glucose 106 H 190 H Lactic Acid Calcium 8.2 L Phosphorus 4.60 H Magnesium Total Bilirubin AST ALT Alkaline Phosphatase Total Protein Albumin Triglycerides Arterial Blood Glucose Arterial Blood Ionized Calcium Digoxin Crossmatch 01/14/21 01/14/21 01/14/21 10:00 16:56 16:59 WBC 17.0 H RBC 3.10 L Hgb 9.6 L Hct 27.4 L MCV MCHC 35 H RDW 15.6 H Plt Count Lymph % (Auto) [place] % (Auto) Lymph # (Auto) [place] # (Auto) Seg Neutrophils % Seg Neuts % (Manual) Lymphocytes % (Manual) Monocytes % (Manual) Seg Neutrophils # Seg Neutrophils # Man Lymphocytes # (Manual) Monocytes # (Manual) PT INR ABG pH POC ABG pCO2 POC ABG pO2 ABG pO2 ABG HCO3 ABG O2 Saturation ABG Base Excess ABG Hemoglobin ABG Oxyhemoglobin ABG Sodium ABG Potassium ABG Chloride ABG Glucose Oxyhemoglobin Sodium Potassium Chloride Carbon Dioxide BUN Creatinine Glucose POC Glucose 37 L 34 L Lactic Acid Calcium Phosphorus Magnesium Total Bilirubin AST ALT Alkaline Phosphatase Total Protein Albumin Triglycerides Arterial Blood Glucose Arterial Blood Ionized Calcium Digoxin Crossmatch 01/14/21 01/14/21 01/14/21 17:02 18:34 23:17 WBC RBC Hgb Hct MCV MCHC RDW Plt Count Lymph % (Auto) [place] % (Auto) Lymph # (Auto) [place] # (Auto) Seg Neutrophils % Seg Neuts % (Manual) Lymphocytes % (Manual) Monocytes % (Manual) Seg Neutrophils # Seg Neutrophils # Man Lymphocytes # (Manual) Monocytes # (Manual) PT INR ABG pH POC ABG pCO2 POC ABG pO2 ABG pO2 ABG HCO3 ABG O2 Saturation ABG Base Excess ABG Hemoglobin ABG Oxyhemoglobin ABG Sodium ABG Potassium ABG Chloride ABG Glucose Oxyhemoglobin Sodium Potassium Chloride Carbon Dioxide BUN Creatinine Glucose POC Glucose 35 L 143 H 53 L Lactic Acid Calcium Phosphorus Magnesium Total Bilirubin AST ALT Alkaline Phosphatase Total Protein Albumin Triglycerides Arterial Blood Glucose Arterial Blood Ionized Calcium Digoxin Crossmatch 01/15/21 01/15/21 01/15/21 00:34 04:00 04:00 WBC 15.9 H RBC 3.02 L Hgb 9.3 L Hct 27.3 L MCV MCHC RDW 15.6 H Plt Count Lymph % (Auto) [place] % (Auto) Lymph # (Auto) [place] # (Auto) Seg Neutrophils % Seg Neuts % (Manual) Lymphocytes % (Manual) Monocytes % (Manual) Seg Neutrophils # Seg Neutrophils # Man Lymphocytes # (Manual) Monocytes # (Manual) PT INR ABG pH POC ABG pCO2 POC ABG pO2 ABG pO2 ABG HCO3 ABG O2 Saturation ABG Base Excess ABG Hemoglobin ABG Oxyhemoglobin ABG Sodium ABG Potassium ABG Chloride ABG Glucose Oxyhemoglobin Sodium 136 L Potassium Chloride 94.3 L Carbon Dioxide BUN 117 H Creatinine 9.9 H Glucose 217 H POC Glucose 181 H Lactic Acid Calcium 8.3 L Phosphorus Magnesium Total Bilirubin AST ALT Alkaline Phosphatase Total Protein Albumin Triglycerides Arterial Blood Glucose Arterial Blood Ionized Calcium Digoxin Crossmatch 01/15/21 01/15/21 01/15/21 05:29 11:51 23:13 WBC RBC Hgb Hct MCV MCHC RDW Plt Count Lymph % (Auto) [place] % (Auto) Lymph # (Auto) [place] # (Auto) Seg Neutrophils % Seg Neuts % (Manual) Lymphocytes % (Manual) Monocytes % (Manual) Seg Neutrophils # Seg Neutrophils # Man Lymphocytes # (Manual) Monocytes # (Manual) PT INR ABG pH POC ABG pCO2 POC ABG pO2 ABG pO2 ABG HCO3 ABG O2 Saturation ABG Base Excess ABG Hemoglobin ABG Oxyhemoglobin ABG Sodium ABG Potassium ABG Chloride ABG Glucose Oxyhemoglobin Sodium Potassium Chloride Carbon Dioxide BUN Creatinine Glucose POC Glucose 221 H 62 L 154 H Lactic Acid Calcium Phosphorus Magnesium Total Bilirubin AST ALT Alkaline Phosphatase Total Protein Albumin Triglycerides Arterial Blood Glucose Arterial Blood Ionized Calcium Digoxin Crossmatch 01/16/21 01/16/21 01/16/21 05:04 06:44 06:44 WBC 14.8 H RBC 2.76 L Hgb 8.2 L Hct 24.8 L MCV MCHC RDW 15.6 H Plt Count Lymph % (Auto) [place] % (Auto) Lymph # (Auto) [place] # (Auto) Seg Neutrophils % Seg Neuts % (Manual) Lymphocytes % (Manual) Monocytes % (Manual) Seg Neutrophils # Seg Neutrophils # Man Lymphocytes # (Manual) Monocytes # (Manual) PT INR ABG pH POC ABG pCO2 POC ABG pO2 ABG pO2 ABG HCO3 ABG O2 Saturation ABG Base Excess ABG Hemoglobin ABG Oxyhemoglobin ABG Sodium ABG Potassium ABG Chloride ABG Glucose Oxyhemoglobin Sodium 133 L Potassium Chloride 92.3 L Carbon Dioxide 20 L BUN 160 H Creatinine 12.1 H Glucose 177 H POC Glucose 168 H Lactic Acid Calcium 8.1 L Phosphorus 5.50 H Magnesium 2.50 H Total Bilirubin AST ALT Alkaline Phosphatase Total Protein Albumin Triglycerides Arterial Blood Glucose Arterial Blood Ionized Calcium Digoxin Crossmatch 01/16/21 01/17/21 01/17/21 23:20 05:14 05:14 WBC 12.7 H RBC 2.75 L Hgb 8.5 L Hct 24.6 L MCV MCHC 35 H RDW 15.4 H Plt Count Lymph % (Auto) [place] % (Auto) Lymph # (Auto) [place] # (Auto) Seg Neutrophils % Seg Neuts % (Manual) Lymphocytes % (Manual) Monocytes % (Manual) Seg Neutrophils # Seg Neutrophils # Man Lymphocytes # (Manual) Monocytes # (Manual) PT INR ABG pH POC ABG pCO2 POC ABG pO2 ABG pO2 ABG HCO3 ABG O2 Saturation ABG Base Excess ABG Hemoglobin ABG Oxyhemoglobin ABG Sodium ABG Potassium ABG Chloride ABG Glucose Oxyhemoglobin Sodium Potassium Chloride 97.9 L Carbon Dioxide BUN 84 H Creatinine 7.8 H Glucose 176 H POC Glucose 153 H Lactic Acid Calcium 8.0 L Phosphorus Magnesium Total Bilirubin AST ALT Alkaline Phosphatase Total Protein Albumin Triglycerides Arterial Blood Glucose Arterial Blood Ionized Calcium Digoxin Crossmatch 01/17/21 01/17/21 01/18/21 05:33 11:58 00:07 WBC RBC Hgb Hct MCV MCHC RDW Plt Count Lymph % (Auto) [place] % (Auto) Lymph # (Auto) [place] # (Auto) Seg Neutrophils % Seg Neuts % (Manual) Lymphocytes % (Manual) Monocytes % (Manual) Seg Neutrophils # Seg Neutrophils # Man Lymphocytes # (Manual) Monocytes # (Manual) PT INR ABG pH POC ABG pCO2 POC ABG pO2 ABG pO2 ABG HCO3 ABG O2 Saturation ABG Base Excess ABG Hemoglobin ABG Oxyhemoglobin ABG Sodium ABG Potassium ABG Chloride ABG Glucose Oxyhemoglobin Sodium Potassium Chloride Carbon Dioxide BUN Creatinine Glucose POC Glucose 162 H 64 L 146 H Lactic Acid Calcium Phosphorus Magnesium Total Bilirubin AST ALT Alkaline Phosphatase Total Protein Albumin Triglycerides Arterial Blood Glucose Arterial Blood Ionized Calcium Digoxin Crossmatch 01/18/21 01/18/21 01/18/21 04:19 04:19 06:15 WBC 15.6 H RBC 3.00 L Hgb 9.2 L Hct 26.8 L MCV MCHC 35 H RDW 15.6 H Plt Count Lymph % (Auto) [place] % (Auto) Lymph # (Auto) [place] # (Auto) Seg Neutrophils % Seg Neuts % (Manual) Lymphocytes % (Manual) Monocytes % (Manual) Seg Neutrophils # Seg Neutrophils # Man Lymphocytes # (Manual) Monocytes # (Manual) PT INR ABG pH POC ABG pCO2 POC ABG pO2 ABG pO2 ABG HCO3 ABG O2 Saturation ABG Base Excess ABG Hemoglobin ABG Oxyhemoglobin ABG Sodium ABG Potassium ABG Chloride ABG Glucose Oxyhemoglobin Sodium Potassium Chloride 96.2 L Carbon Dioxide BUN 117 H Creatinine 10.0 H Glucose 165 H POC Glucose 189 H Lactic Acid Calcium Phosphorus 4.70 H D Magnesium Total Bilirubin AST ALT Alkaline Phosphatase Total Protein Albumin Triglycerides Arterial Blood Glucose Arterial Blood Ionized Calcium Digoxin Crossmatch 01/18/21 01/18/21 01/18/21 11:53 13:44 15:08 WBC RBC Hgb Hct MCV MCHC RDW Plt Count Lymph % (Auto) [place] % (Auto) Lymph # (Auto) [place] # (Auto) Seg Neutrophils % Seg Neuts % (Manual) Lymphocytes % (Manual) Monocytes % (Manual) Seg Neutrophils # Seg Neutrophils # Man Lymphocytes # (Manual) Monocytes # (Manual) PT INR ABG pH POC ABG pCO2 POC ABG pO2 ABG pO2 ABG HCO3 ABG O2 Saturation ABG Base Excess ABG Hemoglobin ABG Oxyhemoglobin ABG Sodium ABG Potassium ABG Chloride ABG Glucose Oxyhemoglobin Sodium Potassium Chloride Carbon Dioxide BUN Creatinine Glucose POC Glucose 69 L 50 L 56 L Lactic Acid Calcium Phosphorus Magnesium Total Bilirubin AST ALT Alkaline Phosphatase Total Protein Albumin Triglycerides Arterial Blood Glucose Arterial Blood Ionized Calcium Digoxin Crossmatch 01/18/21 01/19/21 01/19/21 17:50 04:55 08:56 WBC 12.7 H RBC 2.89 L Hgb 8.7 L Hct 25.6 L MCV MCHC RDW 15.5 H Plt Count Lymph % (Auto) [place] % (Auto) Lymph # (Auto) [place] # (Auto) Seg Neutrophils % Seg Neuts % (Manual) Lymphocytes % (Manual) Monocytes % (Manual) Seg Neutrophils # Seg Neutrophils # Man Lymphocytes # (Manual) Monocytes # (Manual) PT INR ABG pH POC ABG pCO2 POC ABG pO2 ABG pO2 ABG HCO3 ABG O2 Saturation ABG Base Excess ABG Hemoglobin ABG Oxyhemoglobin ABG Sodium ABG Potassium ABG Chloride ABG Glucose Oxyhemoglobin Sodium Potassium Chloride Carbon Dioxide BUN Creatinine Glucose POC Glucose 137 H 120 H Lactic Acid Calcium Phosphorus Magnesium Total Bilirubin AST ALT Alkaline Phosphatase Total Protein Albumin Triglycerides Arterial Blood Glucose Arterial Blood Ionized Calcium Digoxin Crossmatch 01/19/21 01/19/21 01/19/21 08:56 11:33 17:32 WBC RBC Hgb Hct MCV MCHC RDW Plt Count Lymph % (Auto) [place] % (Auto) Lymph # (Auto) [place] # (Auto) Seg Neutrophils % Seg Neuts % (Manual) Lymphocytes % (Manual) Monocytes % (Manual) Seg Neutrophils # Seg Neutrophils # Man Lymphocytes # (Manual) Monocytes # (Manual) PT INR ABG pH POC ABG pCO2 POC ABG pO2 ABG pO2 ABG HCO3 ABG O2 Saturation ABG Base Excess ABG Hemoglobin ABG Oxyhemoglobin ABG Sodium ABG Potassium ABG Chloride ABG Glucose Oxyhemoglobin Sodium Potassium Chloride Carbon Dioxide BUN 66 H Creatinine 7.7 H Glucose 119 H POC Glucose 160 H 125 H Lactic Acid Calcium 8.3 L Phosphorus Magnesium Total Bilirubin AST ALT Alkaline Phosphatase Total Protein Albumin Triglycerides Arterial Blood Glucose Arterial Blood Ionized Calcium Digoxin Crossmatch 01/19/21 01/20/21 01/20/21 23:30 03:35 03:35 WBC 12.0 H RBC 2.62 L Hgb 8.3 L Hct 23.2 L MCV MCHC 36 H RDW Plt Count Lymph % (Auto) [place] % (Auto) Lymph # (Auto) [place] # (Auto) Seg Neutrophils % Seg Neuts % (Manual) Lymphocytes % (Manual) Monocytes % (Manual) Seg Neutrophils # Seg Neutrophils # Man Lymphocytes # (Manual) Monocytes # (Manual) PT INR ABG pH POC ABG pCO2 POC ABG pO2 ABG pO2 ABG HCO3 ABG O2 Saturation ABG Base Excess ABG Hemoglobin ABG Oxyhemoglobin ABG Sodium ABG Potassium ABG Chloride ABG Glucose Oxyhemoglobin Sodium Potassium Chloride Carbon Dioxide BUN 46 H Creatinine 5.9 H Glucose 128 H POC Glucose 127 H Lactic Acid Calcium Phosphorus Magnesium Total Bilirubin AST ALT Alkaline Phosphatase Total Protein Albumin Triglycerides Arterial Blood Glucose Arterial Blood Ionized Calcium Digoxin Crossmatch 01/20/21 01/20/21 01/20/21 06:19 11:55 18:00 WBC RBC Hgb Hct MCV MCHC RDW Plt Count Lymph % (Auto) [place] % (Auto) Lymph # (Auto) [place] # (Auto) Seg Neutrophils % Seg Neuts % (Manual) Lymphocytes % (Manual) Monocytes % (Manual) Seg Neutrophils # Seg Neutrophils # Man Lymphocytes # (Manual) Monocytes # (Manual) PT INR ABG pH POC ABG pCO2 POC ABG pO2 ABG pO2 ABG HCO3 ABG O2 Saturation ABG Base Excess ABG Hemoglobin ABG Oxyhemoglobin ABG Sodium ABG Potassium ABG Chloride ABG Glucose Oxyhemoglobin Sodium Potassium Chloride Carbon Dioxide BUN Creatinine Glucose POC Glucose 119 H 128 H 115 H Lactic Acid Calcium Phosphorus Magnesium Total Bilirubin AST ALT Alkaline Phosphatase Total Protein Albumin Triglycerides Arterial Blood Glucose Arterial Blood Ionized Calcium Digoxin Crossmatch 01/20/21 01/21/21 23:26 04:39 WBC RBC Hgb Hct MCV MCHC RDW Plt Count Lymph % (Auto) [place] % (Auto) Lymph # (Auto) [place] # (Auto) Seg Neutrophils % Seg Neuts % (Manual) Lymphocytes % (Manual) Monocytes % (Manual) Seg Neutrophils # Seg Neutrophils # Man Lymphocytes # (Manual) Monocytes # (Manual) PT INR ABG pH POC ABG pCO2 POC ABG pO2 ABG pO2 ABG HCO3 ABG O2 Saturation ABG Base Excess ABG Hemoglobin ABG Oxyhemoglobin ABG Sodium ABG Potassium ABG Chloride ABG Glucose Oxyhemoglobin Sodium Potassium Chloride Carbon Dioxide BUN 37 H Creatinine 5.3 H Glucose 109 H POC Glucose 108 H Lactic Acid Calcium Phosphorus 2.10 L Magnesium 1.50 L Total Bilirubin AST ALT Alkaline Phosphatase 143 H Total Protein 6.1 L Albumin 3.0 L Triglycerides Arterial Blood Glucose Arterial Blood Ionized Calcium Digoxin Crossmatch Allied health notes reviewed: nursing
--- NOTE | 2021-01-21 11:03 | Progress Note ---
Assessment and Plan Assessment: - ESRD on peritoneal dialysis. He has been on peritoneal dialysis for the past 2 years. He denies any history of peritonitis. - Abdominal pain. CT scan without organ perforation. Need to rule out peritonitis. - small bowel obstruction s/p exp - Hypertension - Hyperkalemia - Anemia of ESRD - Hyperglycemia Plan: - continue IV empiric abx - s/p ex lap, stopped PD, will likely not be able to continue pd with adhesion and sbo s/p resection -uf as tolerated with HD -continue hd today in am, needs outpatient hd placement - stopped binders and sensipar - strict i/os, uf as tolerated -keep MAP >65, vasopressors prn -add albumin today - monitor electrolytes daily Subjective Date of service: 01/21/21 Principal diagnosis: Ac hypoxemic resp failure; Severe Sepsis; Peritonitis; Acute SBO; ESRD; CHF Interval history: resting in bed event noted Objective - Exam Narrative Exam: - General Limitations: Physical Limitation General appearance: alert, in no apparent distress - Head Head exam: Present: atraumatic, normocephalic - Eye Eye exam: Present: normal appearance, EOMI - ENT ENT exam: Present: mucous membranes moist - Neck Neck exam: Present: normal inspection - Respiratory Respiratory exam: Present: normal lung sounds bilaterally. Absent: respiratory distress - Cardiovascular Cardiovascular Exam: Present: normal rhythm, tachycardia - GI/Abdominal GI/Abdominal exam: Present: soft, distended (slightly), tenderness (perium bilical ) - Extremities Exam Extremities exam: Present: normal inspection - Neurological Exam Neurological exam: Present: alert, oriented X3 - Psychiatric Psychiatric exam: Present: normal affect, normal mood - Skin Skin exam: Present: warm, dry, intact, normal color - Vital Signs Vital signs: Vital Signs - 12hr 01/20/21 01/20/21 01/20/21 23:21 23:25 23:34 Temperature 98.0 F Pulse Rate 72 Pulse Rate [ 62 From Monitor] Respiratory 24 Rate Respiratory Rate [Anterior Abdomen] Blood Pressure 132/72 O2 Sat by Pulse Oximetry 01/21/21 01/21/21 01/21/21 00:00 01:30 01:31 Temperature Pulse Rate 59 L 58 L 58 L Pulse Rate [ From Monitor] Respiratory 18 Rate Respiratory Rate [Anterior Abdomen] Blood Pressure 128/66 135/68 O2 Sat by Pulse Oximetry 01/21/21 01/21/2101/21/21 02:01 03:25 03:30 Temperature 98.5 F Pulse Rate 67 Pulse Rate [ 62 From Monitor] Respiratory 22 Rate Respiratory Rate [Anterior Abdomen] Blood Pressure 131/63 O2 Sat by Pulse Oximetry 01/21/21 01/21/21 01/21/21 04:00 04:01 05:28 Temperature Pulse Rate 65 68 Pulse Rate [ From Monitor] Respiratory 19 19 Rate Respiratory Rate [Anterior Abdomen] Blood Pressure 131/63 O2 Sat by Pulse Oximetry 01/21/21 01/21/21 01/21/21 05:39 06:01 07:00 Temperature Pulse Rate 59 L 62 Pulse Rate [ 67 From Monitor] Respiratory 13 18 Rate Respiratory Rate [Anterior Abdomen] Blood Pressure 129/72 134/65 O2 Sat by Pulse 98 Oximetry 01/21/21 01/21/21 01/21/21 08:00 09:55 10:00 Temperature 99.2 F Pulse Rate 69 58 L 63 Pulse Rate [ From Monitor] Respiratory 23 22 Rate Respiratory 16 Rate [Anterior Abdomen] Blood Pressure 123/70 134/65 128/69 O2 Sat by Pulse Oximetry 01/21/21 01/21/21 01/21/21 10:11 10:13 10:49 Temperature Pulse Rate 68 68 Pulse Rate [ From Monitor] Respiratory 14 Rate Respiratory Rate [Anterior Abdomen] Blood Pressure 134/65 134/65 O2 Sat by Pulse Oximetry - Lab 01/20/21 03:35 01/21/21 04:39 Most recent lab results ABG pH 7.345 pH Units (7.350-7.450) L 01/07/21 17:14 ABG pCO2 40.3 mm Hg 01/07/21 17:14 ABG pO2 67.4 mm Hg (80.0-90.0) L 01/07/21 17:14 ABG HCO3 21.5 mmol/L (20.0-26.0) 01/07/21 17:14 ABG O2 Saturation 94.3 % (95.0-99.0) L 01/07/21 17:14 Calcium 9.0 mg/dL (8.4-10.2) 01/21/21 04:39 Phosphorus 2.10 mg/dL (2.5-4.5) L 01/21/21 04:39 Magnesium 1.50 mg/dL (1.7-2.3) L 01/21/21 04:39 Medications & Allergies - Medications Allergies/Adverse Reactions: Allergies No Known Allergies Allergy (Verified 06/09/20 15:27) Home Medications: Home Medications Medication Instructions Recorded Confirmed Last Taken Type Albuterol Mdi (or & Nicu Only) 2 puff IH QID PRN #1 inhalation 04/01/17 11/01/20 10/31/20 09:00 Rx [ProAir HFA Inhaler] Calcium Acetate 667 mg PO DAILY 04/20/20 11/01/20 10/31/20 09:00 History Centrum Men's Tablet 1 tab PO DAILY 04/20/20 11/01/20 10/31/20 09:00 History Cinacalcet 30 mg PO DAILY 04/20/20 11/01/20 10/31/20 09:00 History Dialyvite with Zinc Tablet 1 tab PO DAILY 04/20/20 11/01/20 10/31/20 09:00 History Magnesium 250 mg PO BID 04/20/20 11/01/20 10/31/20 17:00 History Triamcinolone 0.1% 1 1000units TRANSDERMA DAILY 04/20/20 11/01/20 10/31/20 09:00 History Vit B12/Folic Acid/B6/Aa No.15 1,000 mg PO DAILY 04/20/20 11/01/20 10/31/20 09:00 History amLODIPine 10 mg PO DAILY 06/09/20 11/01/20 10/31/20 09:00 History AtorvaSTATin 40 mg PO HS 11/01/20 11/01/20 10/31/20 21:00 History Benadryl 25 mg PO HS 11/01/20 11/01/20 10/31/20 21:00 History Diclofenac 1 TRANSDERMA QID 11/01/20 10/31/20 19:00 History Fluticasone Propionate 1 spray INTRANASAL DAILY 11/01/20 11/01/20 10/31/20 09:00 History Vitamin D3 2,000 units 11/01/20 10/31/20 09:00 History carvediloL 12.5 mg PO DAILY 11/01/20 11/01/20 10/31/20 09:00 History hydrALAZINE 100 mg PO TID 11/01/20 11/01/20 10/31/20 19:00 History Active Medications: Generic Name Dose Route Start Last Admin Trade Name Freq PRN Reason Stop Dose Admin Acetaminophen 650 mg 12/31/20 15:30 01/21/21 05:28 Acetaminophen 650 Mg Rect Supp ME 650 mg Q6H PRN Administration Non Cardiac Pain or Temp>100.5 Clonidine HCl 0.2 mg 01/11/21 10:00 01/18/21 10:11 Clonidine Tts 0.2 Mg/24 Hr Patch TD 0.2 mg We HTOMAS Administration Dextrose 50 ml 01/14/21 17:59 01/18/21 15:10 Dextrose 50% In Water (25gm) 50 Ml Syringe IV 20 ml Q30MIN PRN Administration Hypoglycemia Protocol Digoxin 0.125 mg 01/09/21 12:00 01/19/21 14:45 Digoxin 0.5 Mg/2 Ml Inj IV 0.125 mg Q48H THOMAS Administration Diphenhydramine HCl 50 mg 01/20/21 10:10 01/20/21 21:25 Diphenhydramine 50 Mg/Ml Vial IV 50 mg Q6H PRN Administration Itching Famotidine 10 mg 12/24/20 13:00 01/21/21 10:12 Famotidine 20 Mg/2 Ml Inj IV 10 mg BID THOMAS Administration Haloperidol Lactate 5 mg 12/29/20 14:16 01/19/21 22:14 Haloperidol Lactate 5 Mg/1 Ml Inj IV 5 mg Q12H PRN Administration Agitation Heparin Sodium (Porcine) 5,000 unit 12/24/20 10:00 01/21/21 10:12 Heparin 5,000 Unit/1 Ml Vial SUB-Q 5,000 unit Q12HR THOMAS Administration Hydralazine HCl 10 mg 01/10/21 14:00 01/21/21 10:13 Hydralazine 20 Mg/1 Ml Inj IV 10 mg Q4HR THOMAS Administration Hydromorphone HCl 0.25 mg 01/09/21 10:53 01/21/21 10:49 Hydromorphone 1 Mg/1 Ml Inj IV 0.25 mg Q6H PRN Administration Pain , Severe (7-10) Hydrophilic Ointment 1 applic 12/31/20 06:39 01/11/21 21:28 Lip Therapy Vaseline TP 1 applic Q2HR PRN Administration Dry Lips Octreotide Acetate 500 mcg/ 101 mls @ 5.05 mls/hr 01/13/21 11:00 01/20/21 23:07 Sodium Chloride IV 25 mcg/hr TITR THOMAS 5.05 mls/hr Administration Protocol 25 MCG/HR Piperacillin Sod/Tazobactam Sod 2.25 gm in 50 mls @ 100 mls/hr 01/13/21 12:00 01/21/21 09:59 Zosyn/Ns 2.25 Gm/50ml IV 01/24/21 20:29 Not Given Q8H ON LICENSE OF [facility] Protocol Sodium Chloride 100 mls @ 999 mls/hr 01/19/21 09:30 Nacl 0.9% IV [place] PRN Hypotension Amino Acids/Electrolytes/Dextrose 2,016 mls @ 84 mls/hr 01/20/21 20:00 01/20/21 21:11 Tpn Adult IV 01/21/21 19:59 84 mls/hr [email or web address] ON LICENSE OF [facility] Administration Protocol Amino Acids/Electrolytes/Dextrose 2,016 mls @ 84 mls/hr 01/21/21 20:00 Tpn Adult IV 01/22/21 19:59 [email or web address] ON LICENSE OF [facility] Protocol Insulin Glargine 5 units 01/18/21 22:00 01/20/21 23:09 Insulin Glargine 100 Units/Ml SUB-Q 5 units QHS ON LICENSE OF [facility] Administration Insulin Human Lispro 0 unit 01/03/21 12:00 01/21/21 09:57 Insulin Lispro 100 Unit/Ml SUB-Q Not Given Q6HR ON LICENSE OF [facility] Protocol Metoprolol Tartrate 5 mg 12/30/20 12:00 01/21/21 10:11 Metoprolol Tartrate 5 Mg/5 Ml Inj IV 5 mg Q4HR ON LICENSE OF [facility] Administration Multi-Ingred Cream/Lotion/Oil/Oint 1 applic 12/31/20 06:39 Mineral Oil/Petrolatum, White Ophth Oint 3.5 Gm OU Q4HR PRN Dry Eye(s) Scopolamine 1 each 01/15/21 11:00 01/21/21 10:12 Scopolamine Transdermal Patch 72 Hr TD 1 each Q3D THOMAS Administration Sodium Chloride 10 ml 12/22/20 22:00 01/21/21 10:12 Sodium Chloride 0.9% 10 Ml Flush Syringe IV 10 ml BID THOMAS Administration Sodium Chloride 10 ml 12/22/20 19:42 01/09/21 17:27 Sodium Chloride 0.9% 10 Ml Flush Syringe IV 10 ml PRN PRN Administration LINE FLUSH
--- NOTE | 2021-01-21 11:05 | Progress Note ---
Assessment and Plan Assessment: * ESRD previouasly on peritoneal dialysis; now on back up HD (on peritoneal dialysis for 2 years) * Small bowel obstruction --s/p ex-lap with jejuno-ileal anastamosis --s/p ex lap with extensive lysis of adhesions and two small bowel resections with primary anastamosis for SBO with necrotic segment small bowel. --s/p ex lap, resection of perforated anastamosis, washout and abthera wound vac placement. --s/p ex lap with right hemicolectomy. * Acute respiratory failure * Septic shock - resolved * Bacteremia - resolved * Hyperkalemia * Anemia of ESRD * Atrial fibrilation, new onset * Post op ileus Plan: * Continue HD MWF via left IJ permcath (12/27) * 3K bath with dialysis * UF as tolerated * Epogen 10k units w/ dialysis * Rate control per cardiology * Abx per primary team/ID * Nutrition per primary team * Maintatin MAP >65 * Surgery notes appreciated * He will also require outpatient hemodialysis chair prior to discharge * Most likely secondary to catabolic state. Dialysis time was increased to 4 hours. Subjective Principal diagnosis: Ac hypoxemic resp failure; Severe Sepsis; Peritonitis; Acute SBO; ESRD; CHF Objective - Vital Signs Vital signs: Vital Signs - 12hr 01/20/21 01/20/21 01/20/21 23:21 23:25 23:34 Temperature 98.0 F Pulse Rate 72 Pulse Rate [ 62 From Monitor] Respiratory 24 Rate Respiratory Rate [Anterior Abdomen] Blood Pressure 132/72 O2 Sat by Pulse Oximetry 01/21/21 01/21/21 01/21/21 00:00 01:30 01:31 Temperature Pulse Rate 59 L 58 L 58 L Pulse Rate [ From Monitor] Respiratory 18 Rate Respiratory Rate [Anterior Abdomen] Blood Pressure 128/66 135/68 O2 Sat by Pulse Oximetry 01/21/21 01/21/21 01/21/21 02:01 03:25 03:30 Temperature 98.5 F Pulse Rate 67 Pulse Rate [ 62 From Monitor] Respiratory 22 Rate Respiratory Rate [Anterior Abdomen] Blood Pressure 131/63 O2 Sat by Pulse Oximetry 01/21/21 01/21/21 01/21/21 04:00 04:01 05:28 Temperature Pulse Rate 65 68 Pulse Rate [ From Monitor] Respiratory 19 19 Rate Respiratory Rate [Anterior Abdomen] Blood Pressure 131/63 O2 Sat by Pulse Oximetry 01/21/21 01/21/21 01/21/21 05:39 06:01 07:00 Temperature Pulse Rate 59 L 62 Pulse Rate [ 67 From Monitor] Respiratory 13 18 Rate Respiratory Rate [Anterior Abdomen] Blood Pressure 129/72 134/65 O2 Sat by Pulse 98 Oximetry 01/21/21 01/21/21 01/21/21 08:00 09:55 10:00 Temperature 99.2 F Pulse Rate 69 58 L 63 Pulse Rate [ From Monitor] Respiratory 23 22 Rate Respiratory 16 Rate [Anterior Abdomen] Blood Pressure 123/70 134/65 128/69 O2 Sat by Pulse Oximetry 01/21/21 01/21/21 01/21/21 10:11 10:13 10:49 Temperature Pulse Rate 68 68 Pulse Rate [ From Monitor] Respiratory 14 Rate Respiratory Rate [Anterior Abdomen] Blood Pressure 134/65 134/65 O2 Sat by Pulse Oximetry - Lab 01/20/21 03:35 01/21/21 04:39 Most recent lab results ABG pH 7.345 pH Units (7.350-7.450) L 01/07/21 17:14 ABG pCO2 40.3 mm Hg 01/07/21 17:14 ABG pO2 67.4 mm Hg (80.0-90.0) L 01/07/21 17:14 ABG HCO3 21.5 mmol/L (20.0-26.0) 01/07/21 17:14 ABG O2 Saturation 94.3 % (95.0-99.0) L 01/07/21 17:14 Calcium 9.0 mg/dL (8.4-10.2) 01/21/21 04:39 Phosphorus 2.10 mg/dL (2.5-4.5) L 01/21/21 04:39 Magnesium 1.50 mg/dL (1.7-2.3) L 01/21/21 04:39 Medications & Allergies - Medications Allergies/Adverse Reactions: Allergies No Known Allergies Allergy (Verified 06/09/20 15:27) Home Medications: Home Medications Medication Instructions Recorded Confirmed Last Taken Type Albuterol Mdi (or & Nicu Only) 2 puff IH QID PRN #1 inhalation 04/01/17 11/01/20 10/31/20 09:00 Rx [ProAir HFA Inhaler] Calcium Acetate 667 mg PO DAILY 04/20/20 11/01/20 10/31/20 09:00 History Centrum Men's Tablet 1 tab PO DAILY 04/20/20 11/01/20 10/31/20 09:00 History Cinacalcet 30 mg PO DAILY 04/20/20 11/01/20 10/31/20 09:00 History Dialyvite with Zinc Tablet 1 tab PO DAILY 04/20/20 11/01/20 10/31/20 09:00 History Magnesium 250 mg PO BID 04/20/20 11/01/20 10/31/20 17:00 History Triamcinolone 0.1% 1 1000units TRANSDERMA DAILY 04/20/20 11/01/20 10/31/20 09:00 History Vit B12/Folic Acid/B6/Aa No.15 1,000 mg PO DAILY 04/20/20 11/01/20 10/31/20 09:00 History amLODIPine 10 mg PO DAILY 06/09/20 11/01/20 10/31/20 09:00 History AtorvaSTATin 40 mg PO HS 11/01/20 11/01/20 10/31/20 21:00 History Benadryl 25 mg PO HS 11/01/20 11/01/20 10/31/20 21:00 History Diclofenac 1 TRANSDERMA QID 11/01/20 10/31/20 19:00 History Fluticasone Propionate 1 spray INTRANASAL DAILY 11/01/20 11/01/20 10/31/20 09:00 History Vitamin D3 2,000 units 11/01/20 10/31/20 09:00 History carvediloL 12.5 mg PO DAILY 11/01/20 11/01/20 10/31/20 09:00 History hydrALAZINE 100 mg PO TID 11/01/20 11/01/20 10/31/20 19:00 History Active Medications: Generic Name Dose Route Start Last Admin Trade Name Freq PRN Reason Stop Dose Admin Acetaminophen 650 mg 12/31/20 15:30 01/21/21 05:28 Acetaminophen 650 Mg Rect Supp MA 650 mg Q6H PRN Administration Non Cardiac Pain or Temp>100.5 Clonidine HCl 0.2 mg 01/11/21 10:00 01/18/21 10:11 Clonidine Tts 0.2 Mg/24 Hr Patch TD 0.2 mg We THOMAS Administration Dextrose 50 ml 01/14/21 17:59 01/18/21 15:10 Dextrose 50% In Water (25gm) 50 Ml Syringe IV 20 ml Q30MIN PRN Administration Hypoglycemia Protocol Digoxin 0.125 mg 01/09/21 12:00 01/19/21 14:45 Digoxin 0.5 Mg/2 Ml Inj IV 0.125 mg Q48H THOMAS Administration Diphenhydramine HCl 50 mg 01/20/21 10:10 01/20/21 21:25 Diphenhydramine 50 Mg/Ml Vial IV 50 mg Q6H PRN Administration Itching Famotidine 10 mg 12/24/20 13:00 01/21/21 10:12 Famotidine 20 Mg/2 Ml Inj IV 10 mg BID THOMAS Administration Haloperidol Lactate 5 mg 12/29/20 14:16 01/19/21 22:14 Haloperidol Lactate 5 Mg/1 Ml Inj IV 5 mg Q12H PRN Administration Agitation Heparin Sodium (Porcine) 5,000 unit 12/24/20 10:00 01/21/21 10:12 Heparin 5,000 Unit/1 Ml Vial SUB-Q 5,000 unit Q12HR THOMAS Administration Hydralazine HCl 10 mg 01/10/21 14:00 01/21/21 10:13 Hydralazine 20 Mg/1 Ml Inj IV 10 mg Q4HR THOMAS Administration Hydromorphone HCl 0.25 mg 01/09/21 10:53 01/21/21 10:49 Hydromorphone 1 Mg/1 Ml Inj IV 0.25 mg Q6H PRN Administration Pain , Severe (7-10) Hydrophilic Ointment 1 applic 12/31/20 06:39 01/11/21 21:28 Lip Therapy Vaseline TP 1 applic Q2HR PRN Administration Dry Lips Octreotide Acetate 500 mcg/ 101 mls @ 5.05 mls/hr 01/13/21 11:00 01/20/21 23:07 Sodium Chloride IV 25 mcg/hr TITR THOMAS 5.05 mls/hr Administration Protocol 25 MCG/HR Piperacillin Sod/Tazobactam Sod 2.25 gm in 50 mls @ 100 mls/hr 01/13/21 12:00 01/21/21 09:59 Zosyn/Ns 2.25 Gm/50ml IV 01/24/21 20:29 Not Given Q8H [facility] Protocol Sodium Chloride 100 mls @ 999 mls/hr 01/19/21 09:30 Nacl 0.9% IV [place] PRN Hypotension Amino Acids/Electrolytes/Dextrose 2,016 mls @ 84 mls/hr 01/20/21 20:00 0 01/20/21 21:11 Tpn Adult IV 01/21/21 19:59 84 mls/hr DAILY@1999 [facility] Administration Protocol Amino Acids/Electrolytes/Dextrose 2,016 mls @ 84 mls/hr 01/21/21 20:00 Tpn Adult IV 01/22/21 19:59 DAILY@1999 [facility] Protocol Insulin Glargine 5 units 01/18/21 22:00 01/20/21 23:09 Insulin Glargine 100 Units/Ml SUB-Q 5 units QHS [facility] Administration Insulin Human Lispro 0 unit 01/03/21 12:00 01/21/21 09:57 Insulin Lispro 100 Unit/Ml SUB-Q Not Given Q6HR [facility] Protocol Metoprolol Tartrate 5 mg 12/30/20 12:00 01/21/21 10:11 Metoprolol Tartrate 5 Mg/5 Ml Inj IV 5 mg Q4HR THOMAS Administration Multi-Ingred Cream/Lotion/Oil/Oint 1 applic 12/31/20 06:39 Mineral Oil/Petrolatum, White Ophth Oint 3.5 Gm OU Q4HR PRN Dry Eye(s) Scopolamine 1 each 01/15/21 11:00 01/21/21 10:12 Scopolamine Transdermal Patch 72 Hr TD 1 each Q3D THOMAS Administration Sodium Chloride 10 ml 12/22/20 22:00 01/21/21 10:12 Sodium Chloride 0.9% 10 Ml Flush Syringe IV 10 ml BID THOMAS Administration Sodium Chloride 10 ml 12/22/20 19:42 01/09/21 17:27 Sodium Chloride 0.9% 10 Ml Flush Syringe IV 10 ml PRN PRN Administration LINE FLUSH
--- NOTE | 2021-01-21 11:50 | Progress Note ---
Assessment and Plan Assessment and plan: This is a 60 YO Male with ESRD on PD, GERD, Crohn's Disease, Nicotine Dependence, HTN, Systolic CHF(EF 35%) who presented to the emergency department on 12/22 with complaints of abdominal pain which began shortly after eating fast food rated 10/10 which is periumbilical, constant, associated with fever, nausea and multiple sites of vomiting and self-reported inability to undergo PD. In the emergency room patient underwent a CT scan of the abdomen/pelvis which revealed evidence of partial small bowel obstruction, symptoms were consistent with bacterial peritonitis. Patient was admitted to the hospital service with sepsis, peritonitis, and small bowel obstruction with consults to general surgery, nephrology, infectious disease and [facility]. 12/23. Patient had temperature 101.2 F, tachycardia and elevated lactic acid on admission. Meet sepsis criteria. Started on IV antibiotics. ID has been c onsulted. Surgery consulted this a.m.-advised laparoscopy. He remains on NG tube connected to suction. 12/24. Patient was noted to have peritonitis yesterday and patient undergoing exploratory laparotomy. Patient remained intubated after procedure and is in ICU. Now on broad-spectrum antibiotics. ID on board. 12/25. Remains mechanically ventilated and sedated. Temp 103 Fahrenheit. Antibiotics broadened-ID added fluconazole and Flagyl. Blood cultures ordered. Plan to repeat CT abdomen tomorrow if not better. Surgery following. 12/26: Patient remains on mechanical ventilation on CMV tidal line 550, rate of 14, PEEP of 8 and 30% FiO2 and sedated on fentanyl 4 micrograms. Today we will remove his Jeffery and CCM dropped his rate controlled him on CPAP. We will trend CBC given recent drop in H/H. 12/27: Patient remains intubated on CMV tidal volume 550, rate 12, PEEP 8 on 30% FiO2 at the time my examination. Patient's TPN will be changed to PPN. Patient's fentanyl drip will be changed to IV push fentanyl and have a permacath placed today and midline. Patient was placed on a spontaneous breathing trial was switched back to CMV prior to procedure. 12/28: Patient on fentanyl but awake and follows commands. At the time of my examination he was on a CPAP trial and is scheduled to receive HD today. s/o permacath and PICC placement with vascular yesterday. His blood culture grew Prevotella and addition to Streptococcus bovis. This evening Dr. Spicer attempted to extubate the patient and his heart rate went to the 180s. Stat EKG obtained and cardiology consulted. 12/29: Patient was started on amiodarone IV for A. fib RVR yesterday and today he is more rate controlled into the 70s and 80s. Patient was extubated yesterday and is currently on Ventimask. Patient will be transferred to [facility]. Patient continues to be n.p.o. with TPN and NG tube to LIS. He is hypokalemic today which was repleted. 12/30; patient was on IV amiodarone for treatment with RVR, rate is controlled. Patient was off oxygen. patient is n.p.o. and on TPN. Surgery is following the patient. 12/31: Patient was intubated overnight for respiratory distress and this morning on examination he was on assist control tidal volume 450, rate 20, PEEP 6, 100% FiO2 and RT was getting a ABG to adjust vent settings. Patient had a acute bump in WBC and per ID recommendations we will obtain a CT abdomen/pelvis if leukocytosis persist. Patient is on TPN and sedated with Levophed. Patient is also on vasopressor support with Levophed. Per surgery his ileus is resolving however will maintain OGT to LIWS. 01/01: Patient was started on a vasopressin yesterday late evening. This morning patient is on 20 mcg of Levophed and 0.03 vasopressin and sedated on 20 mcg of propofol. Patient WBC increased today and he is hypokalemic. We will treat hyperkalemia. Patient had a CT chest and abdomen/pelvis pending. The time examination total of 450, rate 20, PEEP of 6 and 35 percent FiO2. Per RN, Dr Pollock has stated that the patient will be returning to the OR today for likely anastomosis seen on CT abdomen/pelvis. 01/02: Patient noted, WBC improving, but noted to have anemia, will transfuse additional unit of Blood and repeat H/H. continue supportive care. 01/03: Continue to wean pressors, ABX PER ID, patient to return to OR today for washout and possible closure, CONTINUE TPN 01/04: Continues to show some improvement. Today is POD#12 s/p ex lap with extensive lysis of adhesions and two small bowel resections with primary anastamosis for SBO with necrotic segment small bowel. POD#3 s/p ex lap, resection of perforated anastamosis, washout and abthera wound vac placement. POD#1 s/p ex lap with right hemicolectomy. Surgery planning to take back to the OR on Saturday with the hope to anastamos ileum to transverse colon and close abdomen. keep NGT to suction. Pt in deep sedation due to open abdomen. Per ID - Continue IV Zosyn, renally dosed for Strep bacteremia treatment till 01/06/2021 -On TPN 01/05: Patient continues on HD, anticipate return to OR tomorrow for closure and anastemosis. Continues with deep sedation due to open abdomen 01/06: Continue supportive care, monitor pressures and electrolytes. He is post op Exploratory laparotomy, 2. Jejunal colonic anastomosis,3. Segmental small bowel resection and anastemosis closure today. Continue wound vac 01/07: Continue supportive care, Today is POD#15 s/p ex lap with extensive lysis of adhesions and two small bowel resections with primary anastamosis for SBO with necrotic segment small bowel. POD#6 s/p ex lap, resection of perforated anastamosis, washout and abthera wound vac placement. POD#4 s/p ex lap with right hemicolectomy. POD #1 exploratory laparotomy, 2. Jejunal colonic anastomosis,3. Segmental small bowel resection. Continue to monitor and correct electrolytes. Patient remains on fentanyl and TPN with lipids. Still hypoactive bowel sounds. 16: Patient now extubated, asked when he can go home, Still lethargic. Continue wound management, wound vac, Will need Rehab eval prior to discharge. 01/09: Patient remains on TPN, was started on labetalol drip per cardiology, africa dueñas had uncontrolled hypertension today however he cannot be given p.o. medications ileus resolves per surgery. Patient received hemodialysis today. NG tube remains to low intermittent suction. 01/10: Patient has some leukocytosis, slight hypokalemia and hyponatremia, metabolic acidosis. NG tube to LIWS, continue TPN. Patient will be downgraded to IMCU today. [facility] is working on placement. Will change frequency of hydralazine and discontinue labetalol drip. We will obtain a.m. BMP/mag/Phos and CBC. Infectious disease will like to start Zosyn if leukocytosis continues to worsen. 01/11: Patient leukocytosis has slightly improved potassium with in normal limits and other electrolytes are elevated but patient is scheduled for HD today. Remains on RA and A,A,Ox4. BP better controlled but remains elevated and we will increase clonidine dose. 01/12/2021; patient's blood pressure is better after dialysis and as needed IV medications and clonidine patch. Patient is followed by general surgery. Patient was alert and oriented and asked when he is going home. 01/13: Surgery is concerned about a leak at his anastamosis given increased output and will treat as controlled fistula and start an octreotide drip. And per surgery if he requires operative intervention will likely need to be left in discontinuity and eventual ileostomy as he has already failed two anastamoses. Patient still has tongue swelling and slurred speech. He is on Benadryl. 01/14: Patient's tongue swelling is improved, patient is alert and oriented, CAM ICU negative. Continue NG tube to low wall intermittent suction. Leukocytosis is improving. Hypomagnesemia resolved. Epogen with HD 01/15: Patient tongue swelling is much improved, bladder scan completed by bedside RN and he needed to be straight cathed. NGT output decreased. Leukocytosis improving. Patient has been having episodes of hypoglycemia during the day and he is on cyclic TPN, Lantus rescheduled to nightly and dosage decreased. 01/16: Continue management per ID and surgery. Will defer repeat CT of the abdomen to the team surgery has been approved by nephrology. Continue current diet and advance all to ice if okay with surgery discussed with nursing staff. 01/17: Discussed surgical recommendation of strict n.p.o. except for small amount of ice as patient has already failed to anastomosis. And risk for additional surgery with tissues were extremely friable from previous scar. He continues on octreotide drip to slow down GI output HARIS drain remains in place with NG suction for decompression. Patient verbalized understanding although stressed about being discharged. We will continue IMCU care unless otherwise advised by david andersen. Prognosis remains guarded continue to monitor electrolytes considering GI output. 01/18: Continue supportive care, BP mildly elevated, continue to monitor, continue current therapy, if no return to PO soon may consider Increasing clonidine to 0.3, PO when ok with surgery. 01/19:Continue supportive care, Per ID continue IV Zosyn, plan to stop at 3 weeks from last surgery end date: 01/24/2021. Other management per surgery. Continue TPN. 01/20: Discussed with Surgery, will continue current management. Advised patient of the findings and plan. 01/21: Continue supportive care. Continue management per surgery advance diet when okay with surgery. Plan of care discussed with the patient in detail. Severe Sepsis with shock Streptococcus bovis bacteremia/Prevotella bacteremia Gwendolyn albicans tracheal aspirate Small bowel obstruction/necrotic bowel s/p ex lap with extensive lysis of adhesions, 2 small bowel resections with primary anastomosis, right hemicolectomy, jejunal colonic anastomosis, segmental small bowel resection Postoperative ileus Atrial fibrillation with RVR Leukocytosis Hypochloremia Gwendolyn albicans in tracheal aspirate from 12/24 ESRD on PD, PermCath to be placed Transaminitis Systolic CHF(EF 35%) Crohn's disease Hypertension -[facility], surgery, infectious disease, nephrology, vascular surgery, cardiology consulted, appreciate recommendations -12/24 S/p ex lap with extensive expectations, 2 small bowel resections with primary anastomosis with surgery on 12/23 -s/p PICC and Permacath placement with vascular surgery on 12/27 -Extubated on 12/28, reintubated 12/31 for respiratory distress and extubated 01/08 -12/29 echocardiogram shows moderate concentric LVH, small pericardial effusion, transmitral Doppler flow pattern is grade 1 abnormal relaxation pattern, left- ventricular systolic function normal, LVEF 50 to 55%, no wall motion abnormalities. -01/01 CT abdomen/pelvis shows small pericardial effusion, mild coronary artery atherosclerotic calcification, small bilateral pleural effusions with associated volume loss, no convincing evidence of bowel obstruction or inflammation, postoperative changes from interval/recent midline laparotomy with a moderate amount of free fluid throughout the abdomen, small amount of dependent free air presumably postoperative -01/02 s/p ex lap, resection of perforated anastamosis, washout and abthera wound vac placement. -01/04 s/p ex lap with right hemicolectomy. -01/06 s/p exploratory laparotomy, Jejunal colonic anastomosis, Segmental small bowel resection. -s/p Vasopressor support with Levophed and vasopressin -Transitioned to HD from PD -HD per nephro, Epogen with HD -Strict NPO -TPN -Octreotide drip -NGT to LIWS -s/p IV antibiotics -Tobacco abuse cessation counseling -Trend CBC, BMP DVT/GI prophylaxis: PPI, heparin subcu, SCDs to bilateral lower extremities while in bed Disposition: IMCU History Interval history: This is a 60-year-old male with ESRD on peritoneal dialysis, Crohn's, hypertension, systolic CHF (EF 35%) who was admitted with sepsis, peritonitis, small bowel obstruction and now has gram-positive cocci bacteremia. Patient seen and examined, this morning no new complaints this morning except wanting to go home. States that he feels restless Hospitalist Physical - Physical exam Narrative exam: General appearance: Present: no acute distress, Dry oropharyngeal area. - EENT Eyes: Present: PERRL ENT: poor dentition - Neck Neck: Absent: masses or JVD, cervical LAD - Respiratory Respiratory effort: normal Respiratory: bilateral: diminished - Cardiovascular Rhythm: irregularly irregular Heart Sounds: Present: S1 & S2. Absent: systolic murmur, diastolic murmur - Extremities Extremities: no ischemia, pulses intact, pulses symmetrical, No edema, normal temperature, normal color Peripheral Pulses: within normal limits - Abdominal General gastrointestinal: distended, abdomen dressing, rigid, w HARIS drain in place. Hypoactive bowel sounds. - Integumentary Integumentary: Present: Left chest permacath - Neurologic Neurologic: Awake alert oriented moves extremities, SPEECH IS NORMAL - Allied Health Allied health notes reviewed: nursing - Constitutional Vitals: Temp Pulse Resp BP Pulse Ox 98.0 F 68 14 134/65 98 01/21/21 11:00 01/21/21 10:13 01/21/21 10:49 01/21/21 10:13 01/21/21 07:00 General appearance: Present: no acute distress HEART Score - HEART Score Troponin: Troponin T 0.021 ng/mL (0.00-0.029) 12/22/20 14:38 Results - Labs CBC & Chem 7: 01/20/21 03:35 01/21/21 04:39 Labs: Laboratory Last Values WBC 12.0 K/mm3 (4.5-11.0) H 01/20/21 03:35 RBC 2.62 M/mm3 (3.65-5.03) L 01/20/21 03:35 Hgb 8.3 gm/dl (11.8-15.2) L 01/20/21 03:35 Hct 23.2 % (35.5-45.6) L 01/20/21 03:35 MCV 89 fl (84-94) 01/20/21 03:35 MCH 32 pg (28-32) 01/20/21 03:35 MCHC 36 % (32-34) H 01/20/21 03:35 RDW 15.2 % (13.2-15.2) 01/20/21 03:35 Plt Count 230 K/mm3 (140-440) 01/20/21 03:35 Lymph % (Auto) 4.4 % (13.4-35.0) L 01/13/21 03:45 [place]ke % (Auto) 10.3 % (0.0-7.3) H 01/13/21 03:45 Eos % (Auto) 0.9 % (0.0-4.3) 01/13/21 03:45 Baso % (Auto) 0.2 % (0.0-1.8) 01/13/21 03:45 Lymph # (Auto) 0.8 K/mm3 (1.2-5.4) L 01/13/21 03:45 [place] # (Auto) 1.8 K/mm3 (0.0-0.8) H 01/13/21 03:45 Eos # (Auto) 0.2 K/mm3 (0.0-0.4) 01/13/21 03:45 Baso # (Auto) 0.0 K/mm3 (0.0-0.1) 01/13/21 03:45 Add Manual Diff Complete 01/10/21 09:26 Total Counted 100 01/10/21 09:26 Seg Neutrophils % 84.2 % (40.0-70.0) H 01/13/21 03:45 Seg Neuts % (Manual) 95.0 % (40.0-70.0) H 01/10/21 09:26 Band Neutrophils % 1.0 % 01/10/21 09:26 Lymphocytes % (Manual) 3.0 % (13.4-35.0) L 01/10/21 09:26 Reactive Lymphs % (Man) 1.0 % 12/29/20 05:16 Monocytes % (Manual) 1.0 % (0.0-7.3) 01/10/21 09:26 Eosinophils % (Manual) 2.0 % (0.0-4.3) 12/29/20 05:16 Metamyelocytes % 2.0 % 12/29/20 05:16 Nucleated RBC % Not Reportable 01/10/21 09:26 Seg Neutrophils # 14.8 K/mm3 (1.8-7.7) H 01/13/21 03:45 Seg Neutrophils # Man 17.3 K/mm3 (1.8-7.7) H 01/10/21 09:26 Band Neutrophils # 0.2 K/mm3 01/10/21 09:26 Lymphocytes # (Manual) 0.5 K/mm3 (1.2-5.4) L 01/10/21 09:26 Abs React Lymphs (Man) 0.0 K/mm3 01/10/21 09:26 Monocytes # (Manual) 0.2 K/mm3 (0.0-0.8) 01/10/21 09:26 Eosinophils # (Manual) 0.0 K/mm3 (0.0-0.4) 01/10/21 09:26 Basophils # (Manual) 0.0 K/mm3 (0.0-0.1) 01/10/21 09:26 Metamyelocytes # 0.0 K/mm3 01/10/21 09:26 Myelocytes # 0.0 K/mm3 01/10/21 09:26 Promyelocytes # 0.0 K/mm3 01/10/21 09:26 Blast Cells # 0.0 K/mm3 01/10/21 09:26 WBC Morphology Not Reportable 01/10/21 09:26 Hypersegmented Neuts Not Reportable 01/10/21 09:26 Hyposegmented Neuts Not Reportable 01/10/21 09:26 Hypogranular Neuts Not Reportable 01/10/21 09:26 Smudge Cells Not Reportable 01/10/21 09:26 Toxic Granulation 1+ 01/10/21 09:26 Toxic Vacuolation Not Reportable 01/10/21 09:26 Dohle Bodies Not Reportable 01/10/21 09:26 Pelger-Huet Anomaly Not Reportable 01/10/21 09:26 Lamar Rods Not Reportable 01/10/21 09:26 Platelet Estimate Consistent w auto 01/10/21 09:26 Clumped Platelets Not Reportable 01/10/21 09:26 Plt Clumps, EDTA Not Reportable 01/10/21 09:26 Large Platelets Not Reportable 01/10/21 09:26 Giant Platelets Not Reportable 01/10/21 09:26 Platelet Satelliting Not Reportable 01/10/21 09:26 Plt Morphology Comment Not Reportable 01/10/21 09:26 RBC Morphology Not Reportable 01/10/21 09:26 Dimorphic RBCs Not Reportable 01/10/21 09:26 Polychromasia Not Reportable 01/10/21 09:26 Hypochromasia Not Reportable 01/10/21 09:26 Poikilocytosis Not Reportable 01/10/21 09:26 Anisocytosis 1+ 01/10/21 09:26 Microcytosis Not Reportable 01/10/21 09:26 Macrocytosis Not Reportable 01/10/21 09:26 Spherocytes Not Reportable 01/10/21 09:26 Pappenheimer Bodies Not Reportable 01/10/21 09:26 Sickle Cells Not Reportable 01/10/21 09:26 Target Cells Not Reportable 01/10/21 09:26 Tear Drop Cells Not Reportable 01/10/21 09:26 Ovalocytes Not Reportable 01/10/21 09:26 Helmet Cells Not Reportable 01/10/21 09:26 [place] Bodies Not Reportable 01/10/21 09:26 [place] Rings Not Reportable 01/10/21 09:26 [place] Cells Not Reportable 01/10/21 09:26 Bite Cells Not Reportable 01/10/21 09:26 Crenated Cell Not Reportable 01/10/21 09:26 Elliptocytes Not Reportable 01/10/21 09:26 Acanthocytes (Spur) Not Reportable 01/10/21 09:26 Rouleaux Not Reportable 01/10/21 09:26 Hemoglobin C Crystals Not Reportable 01/10/21 09:26 Schistocytes Not Reportable 01/10/21 09:26 Malaria parasites Not Reportable 01/10/21 09:26 Lucas Bodies Not Reportable 01/10/21 09:26 Hem Pathologist Commnt No 01/10/21 09:26 PT 16.9 Sec. (12.2-14.9) H 01/01/21 12:45 INR 1.39 (0.87-1.13) H 01/01/21 12:45 APTT 25.1 Sec. (24.2-36.6) 12/22/20 14:38 ABG pH 7.345 pH Units (7.350-7.450) L 01/07/21 17:14 POC ABG pCO2 41.4 mmHg (32.0-48.0) 01/07/21 03:07 ABG pCO2 40.3 mm Hg 01/07/21 17:14 POC ABG pO2 94.5 mmHg (83-108) 01/07/21 03:07 ABG pO2 67.4 mm Hg (80.0-90.0) L 01/07/21 17:14 POC ABG HCO3 22.7 01/07/21 03:07 ABG HCO3 21.5 mmol/L (20.0-26.0) 01/07/21 17:14 ABG O2 Saturation 94.3 % (95.0-99.0) L 01/07/21 17:14 ABG O2 Content 11.6 (0.0-44) 01/07/21 17:14 POC ABG Base Excess -2.7 01/07/21 03:07 ABG Base Excess -3.9 mmol/L (-2.0-3.0) L 01/07/21 17:14 ABG Hemoglobin 8.9 gm/dl (14.0-18.0) L 01/07/21 17:14 ABG Oxyhemoglobin 96.6 (94-98) 01/07/21 03:07 ABG Carboxyhemoglobin 1.5 % (0.0-5.0) 01/07/21 17:14 ABG Methemoglobin 0.6 % (0.0-1.5) 01/07/21 17:14 ABG Sodium 135.6 mmol/L (136.0-145.0) L 01/07/21 03:07 ABG Potassium 4.0 mmol/L (3.40-4.50) 01/07/21 03:07 ABG Chloride 102.0 mmol/L (98-107) 01/07/21 03:07 ABG Glucose 181 mg/dL (65-95) H 01/07/21 03:07 Oxyhemoglobin 92.3 % (95.0-99.0) L 01/07/21 17:14 Carboxyhemoglobin 0.7 (0.5-1.5) 01/07/21 03:07 FiO2 21 % 01/07/21 17:14 FiO2 % 45.0 01/07/21 03:07 Sodium 141 mmol/L (137-145) 01/21/21 04:39 Potassium 3.6 mmol/L (3.6-5.0) 01/21/21 04:39 Chloride 102.2 mmol/L (98-107) 01/21/21 04:39 Carbon Dioxide 28 mmol/L (22-30) 01/21/21 04:39 Anion Gap 14 mmol/L 01/21/21 04:39 BUN 37 mg/dL (9-20) H 01/21/21 04:39 Creatinine 5.3 mg/dL (0.8-1.3) H 01/21/21 04:39 Estimated GFR 13 ml/min 01/21/21 04:39 BUN/Creatinine Ratio 7 % 01/21/21 04:39 Glucose 109 mg/dL (75-100) H 01/21/21 04:39 POC Glucose 133 mg/dL (70-105) H 01/21/21 11:35 Lactic Acid 1.10 mmol/L (0.7-2.0) 01/14/21 05:39 Calcium 9.0 mg/dL (8.4-10.2) 01/21/21 04:39 Phosphorus 2.10 mg/dL (2.5-4.5) L 01/21/21 04:39 Magnesium 1.50 mg/dL (1.7-2.3) L 01/21/21 04:39 Total Bilirubin 0.60 mg/dL (0.1-1.2) 01/21/21 04:39 AST 28 units/L (5-40) 01/21/21 04:39 ALT 25 units/L (7-56) 01/21/21 04:39 Alkaline Phosphatase 143 units/L (35-129) H 01/21/21 04:39 Ammonia 30.0 umol/L (25-60) 12/22/20 14:38 Troponin T 0.021 ng/mL (0.00-0.029) 12/22/20 14:38 Total Protein 6.1 g/dL (6.3-8.2) L 01/21/21 04:39 Albumin 3.0 g/dL (3.9-5) L 01/21/21 04:39 Albumin/Globulin Ratio 1.0 % 01/21/21 04:39 Triglycerides 73 mg/dL (2-149) 01/18/21 04:19 Lipase 41 units/L (13-60) 12/22/20 14:38 Procalcitonin > 200.00 ng/mL (<0.15) 12/24/20 15:06 TSH 1.470 mlU/mL (0.270-4.200) 12/28/20 19:44 Arterial Blood Glucose 181 mg/dL (65-95) H 01/07/21 03:07 Arterial Blood Ionized Calcium 4.3 mg/dL (4.6-5.3) L 01/07/21 03:07 Urine Color Yellow (Yellow) 12/22/20 18:53 Urine Turbidity Clear (Clear) 12/22/20 18:53 Urine pH 7.0 (5.0-7.0) 12/22/20 18:53 Ur Specific [place] 1.012 (1.003-1.030) 12/22/20 18:53 Urine Protein >500 mg/dL (Negative) 12/22/20 18:53 Urine Glucose (UA) Neg mg/dL (Negative) 12/22/20 18:53 Urine Ketones Neg mg/dL (Negative) 12/22/20 18:53 Urine Blood Neg (Negative) 12/22/20 18:53 Urine Nitrite Neg (Negative) 12/22/20 18:53 Urine Bilirubin Neg (Negative) 12/22/20 18:53 Urine Urobilinogen < 2.0 mg/dL (<2.0) 12/22/20 18:53 Ur Leukocyte Esterase Neg (Negative) 12/22/20 18:53 Urine WBC (Auto) < 1.0 /HPF (0.0-6.0) 12/22/20 18:53 Urine RBC (Auto) 1.0 /HPF (0.0-6.0) 12/22/20 18:53 Fluid Type Dialysate 12/22/20 Unknown Fluid Color Colorless 12/22/20 Unknown Fluid Appearance Cloudy 12/22/20 Unknown Fluid WBC 208 /mm3 12/22/20 Unknown Fluid RBC 45 /mm3 12/22/20 Unknown Fluid Seg Neutrophils 82.0 % 12/22/20 Unknown Fluid Lymphocytes 11.0 % 12/22/20 Unknown Fluid Reactive Lymphs 0 % 12/22/20 Unknown Fluid Monocytes 7.0 % 12/22/20 Unknown Fluid Eosinophils 0 % 12/22/20 Unknown Fluid Basophils 0 % 12/22/20 Unknown Random Vancomycin 13.7 ug/mL (0-40.0) 12/26/20 Unknown Digoxin 0.8 ng/mL (0.9-2.0) L 01/11/21 05:18 Hepatitis A IgM Ab Non-reactive (NonReactive) 12/23/20 11:38 Hep Bs Antigen Non-reactive (Negative) 12/23/20 11:38 Hep B Core IgM Ab Non-reactive (NonReactive) 12/23/20 11:38 Hepatitis C Antibody Non-reactive (NonReactive) 12/23/20 11:38 Blood Type A POSITIVE 01/06/21 07:10 Antibody Screen Negative 01/06/21 07:10 Crossmatch See Detail 01/06/21 07:10 Jeffery/IV: Voiding Method Self-Catheterization Active Medications - Current Medications Current Medications: Generic Name Dose Route Start Last Admin Trade Name Freq PRN Reason Stop Dose Admin Acetaminophen 650 mg 12/31/20 15:30 01/21/21 05:28 Acetaminophen 650 Mg Rect Supp FL 650 mg Q6H PRN Administration Non Cardiac Pain or Temp>100.5 Clonidine HCl 0.2 mg 01/11/21 10:00 01/18/21 10:11 Clonidine Tts 0.2 Mg/24 Hr Patch TD 0.2 mg We THOMAS Administration Dextrose 50 ml 01/14/21 17:59 01/18/21 15:10 Dextrose 50% In Water (25gm) 50 Ml Syringe IV 20 ml Q30MIN PRN Administration Hypoglycemia Protocol Digoxin 0.125 mg 01/09/21 12:00 01/19/21 14:45 Digoxin 0.5 Mg/2 Ml Inj IV 0.125 mg Q48H THOMAS Administration Diphenhydramine HCl 50 mg 01/20/21 10:10 01/20/21 21:25 Diphenhydramine 50 Mg/Ml Vial IV 50 mg Q6H PRN Administration Itching Famotidine 10 mg 12/24/20 13:00 01/21/21 10:12 Famotidine 20 Mg/2 Ml Inj IV 10 mg BID THOMAS Administration Haloperidol Lactate 5 mg 12/29/20 14:16 01/19/21 22:14 Haloperidol Lactate 5 Mg/1 Ml Inj IV 5 mg Q12H PRN Administration Agitation Heparin Sodium (Porcine) 5,000 unit 12/24/20 10:00 01/21/21 10:12 Heparin 5,000 Unit/1 Ml Vial SUB-Q 5,000 unit Q12HR THOMAS Administration Hydralazine HCl 10 mg 01/10/21 14:00 01/21/21 10:13 Hydralazine 20 Mg/1 Ml Inj IV 10 mg Q4HR THOMAS Administration Hydromorphone HCl 0.25 mg 01/09/21 10:53 01/21/21 10:49 Hydromorphone 1 Mg/1 Ml Inj IV 0.25 mg Q6H PRN Administration Pain , Severe (7-10) Hydrophilic Ointment 1 applic 12/31/20 06:39 01/11/21 21:28 Lip Therapy Vaseline TP 1 applic Q2HR PRN Administration Dry Lips Octreotide Acetate 500 mcg/ 101 mls @ 5.05 mls/hr 01/13/21 11:00 01/20/21 23:07 Sodium Chloride IV 25 mcg/hr TITR THOMAS 5.05 mls/hr Administration Protocol 25 MCG/HR Piperacillin Sod/Tazobactam Sod 2.25 gm in 50 mls @ 100 mls/hr 01/13/21 12:00 01/21/21 09:59 Zosyn/Ns 2.25 Gm/50ml IV 01/24/21 20:29 Not Given Q8H [facility] Protocol Sodium Chloride 100 mls @ 999 mls/hr 01/19/21 09:30 Nacl 0.9% IV [place] PRN Hypotension Amino Acids/Electrolytes/Dextrose 2,016 mls @ 84 mls/hr 01/20/21 20:00 01/20/21 21:11 Tpn Adult IV 01/21/21 19:59 84 mls/hr DAILY@1999 THOMAS Administration Protocol Amino Acids/Electrolytes/Dextrose 2,016 mls @ 84 mls/hr 01/21/21 20:00 Tpn Adult IV 01/22/21 19:59 DAILY@1999 [facility] Protocol Insulin Glargine 5 units 01/18/21 22:00 01/20/21 23:09 Insulin Glargine 100 Units/Ml SUB-Q 5 units QHS THOMAS Administration Insulin Human Lispro 0 unit 01/03/21 12:00 01/21/21 09:57 Insulin Lispro 100 Unit/Ml SUB-Q Not Given Q6HR [facility] Protocol Metoprolol Tartrate 5 mg 12/30/20 12:00 01/21/21 10:11 Metoprolol Tartrate 5 Mg/5 Ml Inj IV 5 mg Q4HR THOMAS Administration Multi-Ingred Cream/Lotion/Oil/Oint 1 applic 12/31/20 06:39 Mineral Oil/Petrolatum, White Ophth Oint 3.5 Gm OU Q4HR PRN Dry Eye(s) Scopolamine 1 each 01/15/21 11:00 01/21/21 10:12 Scopolamine Transdermal Patch 72 Hr TD 1 each Q3D THOMAS Administration Sodium Chloride 10 ml 12/22/20 22:00 01/21/21 10:12 Sodium Chloride 0.9% 10 Ml Flush Syringe IV 10 ml BID THOMAS Administration Sodium Chloride 10 ml 12/22/20 19:42 01/09/21 17:27 Sodium Chloride 0.9% 10 Ml Flush Syringe IV 10 ml PRN PRN Administration LINE FLUSH Nutrition/Malnutrition Assess - Dietary Evaluation Nutrition/Malnutrition Findings: Nutrition Notes Start: 12/24/20 12:36 Freq: Status: Active Protocol: Document 01/21/21 09:18 LP (Rec: 01/21/21 09:23 LP [id number]) Nutrition Notes Initial or Follow up Reassessment Current Diagnosis CKD (stage V CKD),Sepsis, Hypertension,Heart Failure, Small Bowel Obstruction Other Pertinent Diagnosis Peritonitis, SBO s/p resection Current Diet CPN at 84 ml/hr Labs/Tests K 3.6 Mg 1.5 Pertinent Medications Reviewed Height 5 ft 7 in Weight 73 kg [place] Body Weight (kg) 67.27 BMI 25.2 Weight Status Overweight Subjective/Other Information TPN day 27. Pt continues with abdominal wound. Percent of energy/protein needs met: 100%/100% Burn Absent Trauma Absent Current % PO Negligible Minimum of two criteria No #2 Nutrition Diagnosis Increased nutrient needs ( specify in comment below) Diagnosis Progress(for reassessment Continues documentation) #1 Nutrition Diagnosis Inadequate oral intake Diagnosis Progress(for reassessment Continues documentation) Is patient on ventilator? No Is Patient Ambulatory and/or Out of Bed No REE-([facility]-confined to bed) 1791.432 Kcal/Kg value to use for calculation 22 Approximate Energy Requirements Using 1606 kcal/Kg Calculation Used for Recommendations Kcal/kg Additional Notes Pro needs: 101-121 g/day (1.25 -1.5 g/kg AdjBW, 81kg) Fluid needs per MD. Nutrition Intervention Change Diet Order: Continue CPN Nutrition Support: Continous CPN at 84 ml/hr. K 10 mEq, 16mEq Mg MVI Kcal 1,674 Protein (gm) 121 Carbohydrates (gm) 350 Fat (gm) 0 Fluid (mL) 2,016 Fiber (gm) 0 Goal #1 Meet at least 75% of estimated energy and protein needs via CPN Anticipated Discharge Needs: continuous TPN Follow-Up By: 01/22/21 Additional Comments Labs in AM: BMP, Mg, Phos
--- NOTE | 2021-01-21 11:54 | Progress Note ---
Assessment and Plan 1. Paroxysmal atrial fibrillation 2. Essential hypertension 3. End-stage renal disease on hemodialysis 4. Anemia 5. Status post acute small bowel obstruction with exploratory laparotomy. Plan. Currently patient is in a sinus rhythm cardiac paez stable. Continue management as per hospitalist note. Subjective Date of service: 01/21/21 Principal diagnosis: Ac hypoxemic resp failure; Severe Sepsis; Peritonitis; Acute SBO; ESRD; CHF Interval history: No cardiac symptoms Objective Vital Signs Temp Pulse Pulse Resp Resp BP Pulse Ox 01/21/21 11:00 98.0 F 01/21/21 10:49 14 01/21/21 10:13 68 134/65 01/21/21 10:11 68 134/65 01/21/21 10:00 63 22 16 128/69 01/21/21 09:55 58 L 134/65 01/21/21 08:00 99.2 F 69 23 123/70 01/21/21 07:00 67 18 98 01/21/21 06:01 62 13 134/65 01/21/21 05:39 59 L 129/72 01/21/21 05:28 19 01/21/21 04:01 68 19 131/63 01/21/21 04:00 65 01/21/21 03:30 62 01/21/21 03:25 98.5 F 01/21/21 02:01 67 22 131/63 01/21/21 01:31 58 L 01/21/21 01:30 58 L 135/68 01/21/21 00:00 59 L 18 128/66 01/20/21 23:34 98.0 F 01/20/21 23:25 72 24 132/72 01/20/21 23:21 62 01/20/21 23:00 69 21 125/68 01/20/21 22:00 98.0 F 67 14 132/72 01/20/21 21:45 77 123/71 01/20/21 21:30 73 124/64 01/20/21 21:15 72 119/75 01/20/21 21:00 78 20 119/75 01/20/21 20:53 17 01/20/21 20:45 77 134/62 01/20/21 20:30 80 131/68 01/20/21 20:23 19 01/20/21 20:15 72 126/72 01/20/21 20:00 75 22 127/72 01/20/21 19:58 97.9 F 01/20/21 19:55 98.1 F 01/20/21 19:45 64 141/61 01/20/21 19:30 58 L 149/56 01/20/21 19:15 58 L 148/55 01/20/21 19:01 60 20 147/51 01/20/21 19:00 58 L 153/57 01/20/21 18:45 60 147/57 01/20/21 18:40 97.9 F 59 L 19 160/82 01/20/21 18:00 61 22 160/82 95 01/20/21 17:01 64 21 156/73 96 01/20/21 16:00 98.3 F 60 62 22 149/73 98 01/20/21 15:01 67 17 138/71 96 01/20/21 14:00 65 23 146/71 97 01/20/21 13:00 67 25 H 144/68 95 01/20/21 12:00 99.8 F H 62 67 20 150/71 99 - Physical Examination General: Appears Well, No Apparent Distress HEENT: Positive: PERRL Neck: Positive: neck supple Cardiac: Positive: Regular Rate, S1/S2, Laterally Displaced. Negative: S3, S4 Lungs: Positive: clear to auscultation, No Wheeze, Rales, Rhonchi Neuro: Positive: Weakness (Sedated, on the vent) Abdomen: Positive: Soft, Other (post op) Skin: Positive: Clear Extremities: Absent: edema - Labs and Meds Cardiac Enzymes 01/21/21 Range/Units 04:39 AST 28 (5-40) units/L Comprehensive Metabolic Panel 01/21/21 Range/Units 04:39 Sodium 141 (137-145) mmol/L Potassium 3.6 (3.6-5.0) mmol/L Chloride 102.2 (98-107) mmol/L Carbon Dioxide 28 (22-30) mmol/L BUN 37 H (9-20) mg/dL Creatinine 5.3 H (0.8-1.3) mg/dL Glucose 109 H (75-100) mg/dL Calcium 9.0 (8.4-10.2) mg/dL AST 28 (5-40) units/L ALT 25 (7-56) units/L Alkaline Phosphatase 143 H (35-129) units/L Total Protein 6.1 L (6.3-8.2) g/dL Albumin 3.0 L (3.9-5) g/dL - Allied health notes Allied health notes reviewed: nursing
[2021-01-21] MEDS: DIGOXIN 0.5 MG/2 ML INJ IV SCH (13:15)
--- NOTE | 2021-01-21 14:39 | Progress Note ---
Assessment and Plan POD#28 s/p ex lap with extensive lysis of adhesions and two small bowel resections with primary anastamosis for SBO with necrotic segment small bowel. POD#19 s/p ex lap, resection of perforated anastamosis, washout and abthera wound vac placement. POD#17 s/p ex lap with right hemicolectomy. POD#15 s/p ex lap, with jejunal-colonic anastamosis and closure of abdomen. Afebrile and stable. - concerned about a leak at his anastamosis. Clinically improved with decreased output that is becoming more serous. Blood supply was evaluated at time of last surgery with ICG and found to be adequate. Pt was on several days of steroids for tongue swelling which may have contributed to leak. Currently since he is stable and afebrile will treat like controlled fistua. He is extremely high risk for additional surgery with tissues that are extremely friable and previous scar tissue that makes his anatomy very difficult to manipulate. Will continue octreotide drip to try to slow down GI output. If he requires operative intervention will likely need to be left in discontinuity and eventual ileostomy as he has already failed two anastamoses. Continue HARIS drain suction with and NGT deccompression. Strict NPO except for small amount of ice chips. HARIS drain must be secured and kept in place. Since HARIS drain has continued to decrease over the last several days, will change to q 8h ocreotide, and d/c drip for now. No additional changes in management at time. Will order PT at bedside. Need to ensure drain is protected during movements. Prognosis is gaurded. Subjective Date of service: 01/21/21 Patient Reports: Positive: no new complaints (No acute events overnight. Pt denies pain. Says he is hungry.) Objective Vital Signs - 12hr 01/21/21 01/21/21 01/21/21 03:25 03:30 04:00 Temperature 98.5 F Pulse Rate 65 Pulse Rate [ 62 From Monitor] Respiratory Rate Respiratory Rate [Anterior Abdomen] Blood Pressure O2 Sat by Pulse Oximetry 01/21/21 01/21/21 01/21/21 04:01 05:28 05:39 Temperature Pulse Rate 68 59 L Pulse Rate [ From Monitor] Respiratory 19 19 Rate Respiratory Rate [Anterior Abdomen] Blood Pressure 131/63 129/72 O2 Sat by Pulse Oximetry 01/21/21 01/21/2101/21/21 06:01 07:00 08:00 Temperature 99.2 F Pulse Rate 62 69 Pulse Rate [ 67 From Monitor] Respiratory 13 18 23 Rate Respiratory Rate [Anterior Abdomen] Blood Pressure 134/65 123/70 O2 Sat by Pulse 98 Oximetry 01/21/21 01/21/21 01/21/21 09:55 10:00 10:11 Temperature Pulse Rate 58 L 63 68 Pulse Rate [ From Monitor] Respiratory 22 Rate Respiratory 16 Rate [Anterior Abdomen] Blood Pressure 134/65 128/69 134/65 O2 Sat by Pulse Oximetry 01/21/21 01/21/21 01/21/21 10:13 10:49 11:00 Temperature 98.0 F Pulse Rate 68 Pulse Rate [ From Monitor] Respiratory 14 Rate Respiratory Rate [Anterior Abdomen] Blood Pressure 134/65 O2 Sat by Pulse Oximetry 01/21/21 01/21/21 01/21/21 12:00 13:15 14:00 Temperature 98.3 F Pulse Rate 69 64 63 Pulse Rate [ 67 From Monitor] Respiratory 20 19 Rate Respiratory Rate [Anterior Abdomen] Blood Pressure 134/70 134/70 126/68 O2 Sat by Pulse 98 Oximetry - General physical appearance well developed, no distress, no pain - Respiratory normal expansion, normal respiratory effort - Abdomen soft, not tender, other (HARIS drain will small amount of bilious drainage, NGT bilious, incisional vac in place) - Labs 01/20/21 03:35 01/21/21 04:39 Diabetes panel 01/21/21 Range/Units 04:39 Sodium 141 (137-145) mmol/L Potassium 3.6 (3.6-5.0) mmol/L Chloride 102.2 (98-107) mmol/L Carbon Dioxide 28 (22-30) mmol/L BUN 37 H (9-20) mg/dL Creatinine 5.3 H (0.8-1.3) mg/dL Glucose 109 H (75-100) mg/dL Calcium 9.0 (8.4-10.2) mg/dL AST 28 (5-40) units/L ALT 25 (7-56) units/L Alkaline Phosphatase 143 H (35-129) units/L Total Protein 6.1 L (6.3-8.2) g/dL Albumin 3.0 L (3.9-5) g/dL Calcium panel 01/21/21 Range/Units 04:39 Calcium 9.0 (8.4-10.2) mg/dL Phosphorus 2.10 L (2.5-4.5) mg/dL Albumin 3.0 L (3.9-5) g/dL Pituitary panel 01/21/21 Range/Units 04:39 Sodium 141 (137-145) mmol/L Potassium 3.6 (3.6-5.0) mmol/L Chloride 102.2 (98-107) mmol/L Carbon Dioxide 28 (22-30) mmol/L BUN 37 H (9-20) mg/dL Creatinine 5.3 H (0.8-1.3) mg/dL Glucose 109 H (75-100) mg/dL Calcium 9.0 (8.4-10.2) mg/dL Adrenal panel 01/21/21 Range/Units 04:39 Sodium 141 (137-145) mmol/L Potassium 3.6 (3.6-5.0) mmol/L Chloride 102.2 (98-107) mmol/L Carbon Dioxide 28 (22-30) mmol/L BUN 37 H (9-20) mg/dL Creatinine 5.3 H (0.8-1.3) mg/dL Glucose 109 H (75-100) mg/dL Calcium 9.0 (8.4-10.2) mg/dL Total Bilirubin 0.60 (0.1-1.2) mg/dL AST 28 (5-40) units/L ALT 25 (7-56) units/L Alkaline Phosphatase 143 H (35-129) units/L Total Protein 6.1 L (6.3-8.2) g/dL Albumin 3.0 L (3.9-5) g/dL
[2021-01-21] MEDS: OCTREOTIDE 100 MCG in SODIUM CHLORIDE 0.9% 100 ML IV SCH ×2 (15:45→23:16)
[2021-01-21] MEDS ORDERED: TOTAL PARENTERAL NUTRITION 2,016 ML IV SCH (20:00)
[2021-01-21] MEDS: INSULIN GLARGINE 100 UNITS/ML SUB-Q SCH (21:47)
[2021-01-22] MEDS: HYDROmorphone 1 MG/1 ML INJ IV PRN ×2 (00:18→20:27)
[2021-01-22] MEDS: INSULIN LISPRO 100 UNIT/ML SUB-Q SCH ×3 (00:56→16:03)
[2021-01-22] MEDS: METOPROLOL TARTRATE 5 MG/5 ML INJ IV SCH ×5 (02:19→21:26)
[2021-01-22] MEDS: hydrALAZINE 20 MG/1 ML INJ IV SCH ×5 (02:20→21:24)
[2021-01-22] MEDS: diphenhydrAMINE 50 MG/ML VIAL IV PRN ×2 (02:31→20:28)
[2021-01-22] MEDS: PIPERACIL-TAZO 2.25 GM/50 ML 2.25 GM/50 ML BAG IV SCH ×3 (04:33→20:26)
[2021-01-22 05:11] LABS: Calcium 8.7 mg/dL (8.4-10.2)
--- NOTE | 2021-01-22 09:24 | Progress Note ---
Assessment and Plan Assessment and plan: This is a 60 YO Male with ESRD on PD, GERD, Crohn's Disease, Nicotine Dependence, HTN, Systolic CHF(EF 35%) who presented to the emergency department on 12/22 with complaints of abdominal pain which began shortly after eating fast food rated 10/10 which is periumbilical, constant, associated with fever, nausea and multiple sites of vomiting and self-reported inability to undergo PD. In the emergency room patient underwent a CT scan of the abdomen/pelvis which revealed evidence of partial small bowel obstruction, symptoms were consistent with bacterial peritonitis. Patient was admitted to the hospital service with sepsis, peritonitis, and small bowel obstruction with consults to general surgery, nephrology, infectious disease and [facility]. 12/23. Patient had temperature 101.2 F, tachycardia and elevated lactic acid on admission. Meet sepsis criteria. Started on IV antibiotics. ID has been c onsulted. Surgery consulted this a.m.-advised laparoscopy. He remains on NG tube connected to suction. 12/24. Patient was noted to have peritonitis yesterday and patient undergoing exploratory laparotomy. Patient remained intubated after procedure and is in ICU. Now on broad-spectrum antibiotics. ID on board. 12/25. Remains mechanically ventilated and sedated. Temp 103 Fahrenheit. Antibiotics broadened-ID added fluconazole and Flagyl. Blood cultures ordered. Plan to repeat CT abdomen tomorrow if not better. Surgery following. 12/26: Patient remains on mechanical ventilation on CMV tidal line 550, rate of 14, PEEP of 8 and 30% FiO2 and sedated on fentanyl 4 micrograms. Today we will remove his Jeffery and CCM dropped his rate controlled him on CPAP. We will trend CBC given recent drop in H/H. 12/27: Patient remains intubated on CMV tidal volume 550, rate 12, PEEP 8 on 30% FiO2 at the time my examination. Patient's TPN will be changed to PPN. Patient's fentanyl drip will be changed to IV push fentanyl and have a permacath placed today and midline. Patient was placed on a spontaneous breathing trial was switched back to CMV prior to procedure. 12/28: Patient on fentanyl but awake and follows commands. At the time of my examination he was on a CPAP trial and is scheduled to receive HD today. s/o permacath and PICC placement with vascular yesterday. His blood culture grew Prevotella and addition to Streptococcus bovis. This evening Dr. Spicer attempted to extubate the patient and his heart rate went to the 180s. Stat EKG obtained and cardiology consulted. 12/29: Patient was started on amiodarone IV for A. fib RVR yesterday and today he is more rate controlled into the 70s and 80s. Patient was extubated yesterday and is currently on Ventimask. Patient will be transferred to [facility]. Patient continues to be n.p.o. with TPN and NG tube to LIS. He is hypokalemic today which was repleted. 12/30; patient was on IV amiodarone for treatment with RVR, rate is controlled. Patient was off oxygen. patient is n.p.o. and on TPN. Surgery is following the patient. 12/31: Patient was intubated overnight for respiratory distress and this morning on examination he was on assist control tidal volume 450, rate 20, PEEP 6, 100% FiO2 and RT was getting a ABG to adjust vent settings. Patient had a acute bump in WBC and per ID recommendations we will obtain a CT abdomen/pelvis if leukocytosis persist. Patient is on TPN and sedated with Levophed. Patient is also on vasopressor support with Levophed. Per surgery his ileus is resolving however will maintain OGT to LIWS. 01/01: Patient was started on a vasopressin yesterday late evening. This morning patient is on 20 mcg of Levophed and 0.03 vasopressin and sedated on 20 mcg of propofol. Patient WBC increased today and he is hypokalemic. We will treat hyperkalemia. Patient had a CT chest and abdomen/pelvis pending. The time examination total of 450, rate 20, PEEP of 6 and 35 percent FiO2. Per RN, Dr Pollock has stated that the patient will be returning to the OR today for likely anastomosis seen on CT abdomen/pelvis. 01/02: Patient noted, WBC improving, but noted to have anemia, will transfuse additional unit of Blood and repeat H/H. continue supportive care. 01/03: Continue to wean pressors, ABX PER ID, patient to return to OR today for washout and possible closure, CONTINUE TPN 01/04: Continues to show some improvement. Today is POD#12 s/p ex lap with extensive lysis of adhesions and two small bowel resections with primary anastamosis for SBO with necrotic segment small bowel. POD#3 s/p ex lap, resection of perforated anastamosis, washout and abthera wound vac placement. POD#1 s/p ex lap with right hemicolectomy. Surgery planning to take back to the OR on Saturday with the hope to anastamos ileum to transverse colon and close abdomen. keep NGT to suction. Pt in deep sedation due to open abdomen. Per ID - Continue IV Zosyn, renally dosed for Strep bacteremia treatment till 01/06/2021 -On TPN 01/05: Patient continues on HD, anticipate return to OR tomorrow for closure and anastemosis. Continues with deep sedation due to open abdomen 01/06: Continue supportive care, monitor pressures and electrolytes. He is post op Exploratory laparotomy, 2. Jejunal colonic anastomosis,3. Segmental small bowel resection and anastemosis closure today. Continue wound vac 01/07: Continue supportive care, Today is POD#15 s/p ex lap with extensive lysis of adhesions and two small bowel resections with primary anastamosis for SBO with necrotic segment small bowel. POD#6 s/p ex lap, resection of perforated anastamosis, washout and abthera wound vac placement. POD#4 s/p ex lap with right hemicolectomy. POD #1 exploratory laparotomy, 2. Jejunal colonic anastomosis,3. Segmental small bowel resection. Continue to monitor and correct electrolytes. Patient remains on fentanyl and TPN with lipids. Still hypoactive bowel sounds. 16: Patient now extubated, asked when he can go home, Still lethargic. Continue wound management, wound vac, Will need Rehab eval prior to discharge. 01/09: Patient remains on TPN, was started on labetalol drip per cardiology, africa dueñas had uncontrolled hypertension today however he cannot be given p.o. medications ileus resolves per surgery. Patient received hemodialysis today. NG tube remains to low intermittent suction. 01/10: Patient has some leukocytosis, slight hypokalemia and hyponatremia, metabolic acidosis. NG tube to LIWS, continue TPN. Patient will be downgraded to IMCU today. [facility] is working on placement. Will change frequency of hydralazine and discontinue labetalol drip. We will obtain a.m. BMP/mag/Phos and CBC. Infectious disease will like to start Zosyn if leukocytosis continues to worsen. 01/11: Patient leukocytosis has slightly improved potassium with in normal limits and other electrolytes are elevated but patient is scheduled for HD today. Remains on RA and A,A,Ox4. BP better controlled but remains elevated and we will increase clonidine dose. 01/12/2021; patient's blood pressure is better after dialysis and as needed IV medications and clonidine patch. Patient is followed by general surgery. Patient was alert and oriented and asked when he is going home. 01/13: Surgery is concerned about a leak at his anastamosis given increased output and will treat as controlled fistula and start an octreotide drip. And per surgery if he requires operative intervention will likely need to be left in discontinuity and eventual ileostomy as he has already failed two anastamoses. Patient still has tongue swelling and slurred speech. He is on Benadryl. 01/14: Patient's tongue swelling is improved, patient is alert and oriented, CAM ICU negative. Continue NG tube to low wall intermittent suction. Leukocytosis is improving. Hypomagnesemia resolved. Epogen with HD 01/15: Patient tongue swelling is much improved, bladder scan completed by bedside RN and he needed to be straight cathed. NGT output decreased. Leukocytosis improving. Patient has been having episodes of hypoglycemia during the day and he is on cyclic TPN, Lantus rescheduled to nightly and dosage decreased. 01/16: Continue management per ID and surgery. Will defer repeat CT of the abdomen to the team surgery has been approved by nephrology. Continue current diet and advance all to ice if okay with surgery discussed with nursing staff. 01/17: Discussed surgical recommendation of strict n.p.o. except for small amount of ice as patient has already failed to anastomosis. And risk for additional surgery with tissues were extremely friable from previous scar. He continues on octreotide drip to slow down GI output HARIS drain remains in place with NG suction for decompression. Patient verbalized understanding although stressed about being discharged. We will continue IMCU care unless otherwise advised by david andersen. Prognosis remains guarded continue to monitor electrolytes considering GI output. 01/18: Continue supportive care, BP mildly elevated, continue to monitor, continue current therapy, if no return to PO soon may consider Increasing clonidine to 0.3, PO when ok with surgery. 01/19:Continue supportive care, Per ID continue IV Zosyn, plan to stop at 3 weeks from last surgery end date: 01/24/2021. Other management per surgery. Continue TPN. 01/20: Discussed with Surgery, will continue current management. Advised patient of the findings and plan. 01/21: Continue supportive care. Continue management per surgery advance diet when okay with surgery. Plan of care discussed with the patient in detail. 01/22: NG tube to be replaced explained to the patient why this is important. I agree with PT OT discussed with nursing staff very important to let the PT team know that they should manage HARIS drain while patient is ambulating so that he does not come out. Continue current management. Change in ocreotide to q8h and d/c drip NOTED Severe Sepsis with shock Streptococcus bovis bacteremia/Prevotella bacteremia Gwendolyn albicans tracheal aspirate Small bowel obstruction/necrotic bowel s/p ex lap with extensive lysis of adhesions, 2 small bowel resections with primary anastomosis, right hemicolectomy, jejunal colonic anastomosis, segmental small bowel resection Postoperative ileus Atrial fibrillation with RVR Leukocytosis Hypochloremia Gwendolyn albicans in tracheal aspirate from 12/24 ESRD on PD, PermCath to be placed Transaminitis Systolic CHF(EF 35%) Crohn's disease Hypertension -[facility], surgery, infectious disease, nephrology, vascular surgery, cardiology consulted, appreciate recommendations -12/24 S/p ex lap with extensive expectations, 2 small bowel resections with primary anastomosis with surgery on 12/23 -s/p PICC and Permacath placement with vascular surgery on 12/27 -Extubated on 12/28, reintubated 12/31 for respiratory distress and extubated 01/08 -12/29 echocardiogram shows moderate concentric LVH, small pericardial effusion, transmitral Doppler flow pattern is grade 1 abnormal relaxation pattern, left- ventricular systolic function normal, LVEF 50 to 55%, no wall motion abnormalities. -01/01 CT abdomen/pelvis shows small pericardial effusion, mild coronary artery atherosclerotic calcification, small bilateral pleural effusions with associated volume loss, no convincing evidence of bowel obstruction or inflammation, postoperative changes from interval/recent midline laparotomy with a moderate amount of free fluid throughout the abdomen, small amount of dependent free air presumably postoperative -01/02 s/p ex lap, resection of perforated anastamosis, washout and abthera wound vac placement. -01/04 s/p ex lap with right hemicolectomy. -01/06 s/p exploratory laparotomy, Jejunal colonic anastomosis, Segmental small bowel resection. -s/p Vasopressor support with Levophed and vasopressin -Transitioned to HD from PD -HD per nephro, Epogen with HD -Strict NPO -TPN -Octreotide drip -NGT to LIWS -s/p IV antibiotics -Tobacco abuse cessation counseling -Trend CBC, BMP DVT/GI prophylaxis: PPI, heparin subcu, SCDs to bilateral lower extremities while in bed Disposition: IMCU History Interval history: This is a 60-year-old male with ESRD on peritoneal dialysis, Crohn's, hypertension, systolic CHF (EF 35%) who was admitted with sepsis, peritonitis, small bowel obstruction and now has gram-positive cocci bacteremia. Patient seen and examined, Overnight, NGT came out. Patient not sure how it happened, but refused for the nurse to place it back except he is allowed to go to the bathroom and also remove the Rectal tube. Hospitalist Physical - Physical exam Narrative exam: General appearance: Present: no acute distress, Dry oropharyngeal area. - EENT Eyes: Present: PERRL ENT: poor dentition - Neck Neck: Absent: masses or JVD, cervical LAD - Respiratory Respiratory effort: normal Respiratory: bilateral: diminished - Cardiovascular Rhythm: irregularly irregular Heart Sounds: Present: S1 & S2. Absent: systolic murmur, diastolic murmur - Extremities Extremities: no ischemia, pulses intact, pulses symmetrical, No edema, normal temperature, normal color Peripheral Pulses: within normal limits - Abdominal General gastrointestinal: distended, abdomen dressing, rigid, w HARIS drain in place. Hypoactive bowel sounds. - Integumentary Integumentary: Present: Left chest permacath - Neurologic Neurologic: Awake alert oriented moves extremities, SPEECH IS NORMAL - Allied Health Allied health notes reviewed: nursing - Constitutional Vitals: Temp Pulse Resp BP Pulse Ox 98.5 F 67 14 138/72 98 01/22/21 08:00 01/22/21 08:00 01/22/21 08:00 01/22/21 08:00 01/22/21 08:00 General appearance: Present: no acute distress HEART Score - HEART Score Troponin: Troponin T 0.021 ng/mL (0.00-0.029) 12/22/20 14:38 Results - Labs CBC & Chem 7: 01/20/21 03:35 01/22/21 04:00 Labs: Laboratory Last Values WBC 12.0 K/mm3 (4.5-11.0) H 01/20/21 03:35 RBC 2.62 M/mm3 (3.65-5.03) L 01/20/21 03:35 Hgb 8.3 gm/dl (11.8-15.2) L 01/20/21 03:35 Hct 23.2 % (35.5-45.6) L 01/20/21 03:35 MCV 89 fl (84-94) 01/20/21 03:35 MCH 32 pg (28-32) 01/20/21 03:35 MCHC 36 % (32-34) H 01/20/21 03:35 RDW 15.2 % (13.2-15.2) 01/20/21 03:35 Plt Count 230 K/mm3 (140-440) 01/20/21 03:35 Lymph % (Auto) 4.4 % (13.4-35.0) L 01/13/21 03:45 [place] % (Auto) 10.3 % (0.0-7.3) H 01/13/21 03:45 Eos % (Auto) 0.9 % (0.0-4.3) 01/13/21 03:45 Baso % (Auto) 0.2 % (0.0-1.8) 01/13/21 03:45 Lymph # (Auto) 0.8 K/mm3 (1.2-5.4) L 01/13/21 03:45 [place] # (Auto) 1.8 K/mm3 (0.0-0.8) H 01/13/21 03:45 Eos # (Auto) 0.2 K/mm3 (0.0-0.4) 01/13/21 03:45 Baso # (Auto) 0.0 K/mm3 (0.0-0.1) 01/13/21 03:45 Add Manual Diff Complete 01/10/21 09:26 Total Counted 100 01/10/21 09:26 Seg Neutrophils % 84.2 % (40.0-70.0) H 01/13/21 03:45 Seg Neuts % (Manual) 95.0 % (40.0-70.0) H 01/10/21 09:26 Band Neutrophils % 1.0 % 01/10/21 09:26 Lymphocytes % (Manual) 3.0 % (13.4-35.0) L 01/10/21 09:26 Reactive Lymphs % (Man) 1.0 % 12/29/20 05:16 Monocytes % (Manual) 1.0 % (0.0-7.3) 01/10/21 09:26 Eosinophils % (Manual) 2.0 % (0.0-4.3) 12/29/20 05:16 Metamyelocytes % 2.0 % 12/29/20 05:16 Nucleated RBC % Not Reportable 01/10/21 09:26 Seg Neutrophils # 14.8 K/mm3 (1.8-7.7) H 01/13/21 03:45 Seg Neutrophils # Man 17.3 K/mm3 (1.8-7.7) H 01/10/21 09:26 Band Neutrophils # 0.2 K/mm3 01/10/21 09:26 Lymphocytes # (Manual) 0.5 K/mm3 (1.2-5.4) L 01/10/21 09:26 Abs React Lymphs (Man) 0.0 K/mm3 01/10/21 09:26 Monocytes # (Manual) 0.2 K/mm3 (0.0-0.8) 01/10/21 09:26 Eosinophils # (Manual) 0.0 K/mm3 (0.0-0.4) 01/10/21 09:26 Basophils # (Manual) 0.0 K/mm3 (0.0-0.1) 01/10/21 09:26 Metamyelocytes # 0.0 K/mm3 01/10/21 09:26 Myelocytes # 0.0 K/mm3 01/10/21 09:26 Promyelocytes # 0.0 K/mm3 01/10/21 09:26 Blast Cells # 0.0 K/mm3 01/10/21 09:26 WBC Morphology Not Reportable 01/10/21 09:26 Hypersegmented Neuts Not Reportable 01/10/21 09:26 Hyposegmented Neuts Not Reportable 01/10/21 09:26 Hypogranular Neuts Not Reportable 01/10/21 09:26 Smudge Cells Not Reportable 01/10/21 09:26 Toxic Granulation 1+ 01/10/21 09:26 Toxic Vacuolation Not Reportable 01/10/21 09:26 Dohle Bodies Not Reportable 01/10/21 09:26 Pelger-Huet Anomaly Not Reportable 01/10/21 09:26 Lamar Rods Not Reportable 01/10/21 09:26 Platelet Estimate Consistent w auto 01/10/21 09:26 Clumped Platelets Not Reportable 01/10/21 09:26 Plt Clumps, EDTA Not Reportable 01/10/21 09:26 Large Platelets Not Reportable 01/10/21 09:26 Giant Platelets Not Reportable 01/10/21 09:26 Platelet Satelliting Not Reportable 01/10/21 09:26 Plt Morphology Comment Not Reportable 01/10/21 09:26 RBC Morphology Not Reportable 01/10/21 09:26 Dimorphic RBCs Not Reportable 01/10/21 09:26 Polychromasia Not Reportable 01/10/21 09:26 Hypochromasia Not Reportable 01/10/21 09:26 Poikilocytosis Not Reportable 01/10/21 09:26 Anisocytosis 1+ 01/10/21 09:26 Microcytosis Not Reportable 01/10/21 09:26 Macrocytosis Not Reportable 01/10/21 09:26 Spherocytes Not Reportable 01/10/21 09:26 Pappenheimer Bodies Not Reportable 01/10/21 09:26 Sickle Cells Not Reportable 01/10/21 09:26 Target Cells Not Reportable 01/10/21 09:26 Tear Drop Cells Not Reportable 01/10/21 09:26 Ovalocytes Not Reportable 01/10/21 09:26 Helmet Cells Not Reportable 01/10/21 09:26 Washburn-Sulphur Bodies Not Reportable 01/10/21 09:26 [place] Rings Not Reportable 01/10/21 09:26 Adrian Cells Not Reportable 01/10/21 09:26 Bite Cells Not Reportable 01/10/21 09:26 Crenated Cell Not Reportable 01/10/21 09:26 Elliptocytes Not Reportable 01/10/21 09:26 Acanthocytes (Spur) Not Reportable 01/10/21 09:26 Rouleaux Not Reportable 01/10/21 09:26 Hemoglobin C Crystals Not Reportable 01/10/21 09:26 Schistocytes Not Reportable 01/10/21 09:26 Malaria parasites Not Reportable 01/10/21 09:26 Lucas Bodies Not Reportable 01/10/21 09:26 Hem Pathologist Commnt No 01/10/21 09:26 PT 16.9 Sec. (12.2-14.9) H 01/01/21 12:45 INR 1.39 (0.87-1.13) H 01/01/21 12:45 APTT 25.1 Sec. (24.2-36.6) 12/22/20 14:38 ABG pH 7.345 pH Units (7.350-7.450) L 01/07/21 17:14 POC ABG pCO2 41.4 mmHg (32.0-48.0) 01/07/21 03:07 ABG pCO2 40.3 mm Hg 01/07/21 17:14 POC ABG pO2 94.5 mmHg (83-108) 01/07/21 03:07 ABG pO2 67.4 mm Hg (80.0-90.0) L 01/07/21 17:14 POC ABG HCO3 22.7 01/07/21 03:07 ABG HCO3 21.5 mmol/L (20.0-26.0) 01/07/21 17:14 ABG O2 Saturation 94.3 % (95.0-99.0) L 01/07/21 17:14 ABG O2 Content 11.6 (0.0-44) 01/07/21 17:14 POC ABG Base Excess -2.7 01/07/21 03:07 ABG Base Excess -3.9 mmol/L (-2.0-3.0) L 01/07/21 17:14 ABG Hemoglobin 8.9 gm/dl (14.0-18.0) L 01/07/21 17:14 ABG Oxyhemoglobin 96.6 (94-98) 01/07/21 03:07 ABG Carboxyhemoglobin 1.5 % (0.0-5.0) 01/07/21 17:14 ABG Methemoglobin 0.6 % (0.0-1.5) 01/07/21 17:14 ABG Sodium 135.6 mmol/L (136.0-145.0) L 01/07/21 03:07 ABG Potassium 4.0 mmol/L (3.40-4.50) 01/07/21 03:07 ABG Chloride 102.0 mmol/L (98-107) 01/07/21 03:07 ABG Glucose 181 mg/dL (65-95) H 01/07/21 03:07 Oxyhemoglobin 92.3 % (95.0-99.0) L 01/07/21 17:14 Carboxyhemoglobin 0.7 (0.5-1.5) 01/07/21 03:07 FiO2 21 % 01/07/21 17:14 FiO2 % 45.0 01/07/21 03:07 Sodium 140 mmol/L (137-145) 01/22/21 04:00 Potassium 3.9 mmol/L (3.6-5.0) 01/22/21 04:00 Chloride 101.2 mmol/L (98-107) 01/22/21 04:00 Carbon Dioxide 26 mmol/L (22-30) 01/22/21 04:00 Anion Gap 17 mmol/L 01/22/21 04:00 BUN 65 mg/dL (9-20) H 01/22/21 04:00 Creatinine 8.2 mg/dL (0.8-1.3) H D 01/22/21 04:00 Estimated GFR 8 ml/min 01/22/21 04:00 BUN/Creatinine Ratio 8 % 01/22/21 04:00 Glucose 111 mg/dL (75-100) H 01/22/21 04:00 POC Glucose 122 mg/dL (70-105) H 01/22/21 06:09 Lactic Acid 1.10 mmol/L (0.7-2.0) 01/14/21 05:39 Calcium 8.7 mg/dL (8.4-10.2) 01/22/21 04:00 Phosphorus 2.50 mg/dL (2.5-4.5) 01/22/21 04:00 Magnesium 2.10 mg/dL (1.7-2.3) 01/22/21 04:00 Total Bilirubin 0.60 mg/dL (0.1-1.2) 01/21/21 04:39 AST 28 units/L (5-40) 01/21/21 04:39 ALT 25 units/L (7-56) 01/21/21 04:39 Alkaline Phosphatase 143 units/L (35-129) H 01/21/21 04:39 Ammonia 30.0 umol/L (25-60) 12/22/20 14:38 Troponin T 0.021 ng/mL (0.00-0.029) 12/22/20 14:38 Total Protein 6.1 g/dL (6.3-8.2) L 01/21/21 04:39 Albumin 3.0 g/dL (3.9-5) L 01/21/21 04:39 Albumin/Globulin Ratio 1.0 % 01/21/21 04:39 Triglycerides 73 mg/dL (2-149) 01/18/21 04:19 Lipase 41 units/L (13-60) 12/22/20 14:38 Procalcitonin > 200.00 ng/mL (<0.15) 12/24/20 15:06 TSH 1.470 mlU/mL (0.270-4.200) 12/28/20 19:44 Arterial Blood Glucose 181 mg/dL (65-95) H 01/07/21 03:07 Arterial Blood Ionized Calcium 4.3 mg/dL (4.6-5.3) L 01/07/21 03:07 Urine Color Yellow (Yellow) 12/22/20 18:53 Urine Turbidity Clear (Clear) 12/22/20 18:53 Urine pH 7.0 (5.0-7.0) 12/22/20 18:53 Ur Specific [place] 1.012 (1.003-1.030) 12/22/20 18:53 Urine Protein >500 mg/dL (Negative) 12/22/20 18:53 Urine Glucose (UA) Neg mg/dL (Negative) 12/22/20 18:53 Urine Ketones Neg mg/dL (Negative) 12/22/20 18:53 Urine Blood Neg (Negative) 12/22/20 18:53 Urine Nitrite Neg (Negative) 12/22/20 18:53 Urine Bilirubin Neg (Negative) 12/22/20 18:53 Urine Urobilinogen < 2.0 mg/dL (<2.0) 12/22/20 18:53 Ur Leukocyte Esterase Neg (Negative) 12/22/20 18:53 Urine WBC (Auto) < 1.0 /HPF (0.0-6.0) 12/22/20 18:53 Urine RBC (Auto) 1.0 /HPF (0.0-6.0) 12/22/20 18:53 Fluid Type Dialysate 12/22/20 Unknown Fluid Color Colorless 12/22/20 Unknown Fluid Appearance Cloudy 12/22/20 Unknown Fluid WBC 208 /mm3 12/22/20 Unknown Fluid RBC 45 /mm3 12/22/20 Unknown Fluid Seg Neutrophils 82.0 % 12/22/20 Unknown Fluid Lymphocytes 11.0 % 12/22/20 Unknown Fluid Reactive Lymphs 0 % 12/22/20 Unknown Fluid Monocytes 7.0 % 12/22/20 Unknown Fluid Eosinophils 0 % 12/22/20 Unknown Fluid Basophils 0 % 12/22/20 Unknown Random Vancomycin 13.7 ug/mL (0-40.0) 12/26/20 Unknown Digoxin 0.8 ng/mL (0.9-2.0) L 01/11/21 05:18 Hepatitis A IgM Ab Non-reactive (NonReactive) 12/23/20 11:38 Hep Bs Antigen Non-reactive (Negative) 12/23/20 11:38 Hep B Core IgM Ab Non-reactive (NonReactive) 12/23/20 11:38 Hepatitis C Antibody Non-reactive (NonReactive) 12/23/20 11:38 Blood Type A POSITIVE 01/06/21 07:10 Antibody Screen Negative 01/06/21 07:10 Crossmatch See Detail 01/06/21 07:10 Jeffery/IV: Voiding Method Self-Catheterization Active Medications - Current Medications Current Medications: Generic Name Dose Route Start Last Admin Trade Name Freq PRN Reason Stop Dose Admin Acetaminophen 650 mg 12/31/20 15:30 01/21/21 05:28 Acetaminophen 650 Mg Rect Supp RI 650 mg Q6H PRN Administration Non Cardiac Pain or Temp>100.5 Clonidine HCl 0.2 mg 01/11/21 10:00 01/18/21 10:11 Clonidine Tts 0.2 Mg/24 Hr Patch TD 0.2 mg We THOMAS Administration Dextrose 50 ml 01/14/21 17:59 01/18/21 15:10 Dextrose 50% In Water (25gm) 50 Ml Syringe IV 20 ml Q30MIN PRN Administration Hypoglycemia Protocol Digoxin 0.125 mg 01/09/21 12:00 01/21/21 13:15 Digoxin 0.5 Mg/2 Ml Inj IV 0.125 mg Q48H THOMAS Administration Diphenhydramine HCl 50 mg 01/20/21 10:10 01/22/21 02:31 Diphenhydramine 50 Mg/Ml Vial IV 50 mg Q6H PRN Administration Itching Famotidine 10 mg 12/24/20 13:00 01/21/21 22:15 Famotidine 20 Mg/2 Ml Inj IV 10 mg BID THOMAS Administration Haloperidol Lactate 5 mg 12/29/20 14:16 01/19/21 22:14 Haloperidol Lactate 5 Mg/1 Ml Inj IV 5 mg Q12H PRN Administration Agitation Heparin Sodium (Porcine) 5,000 unit 12/24/20 10:00 01/21/21 21:45 Heparin 5,000 Unit/1 Ml Vial SUB-Q 5,000 unit Q12HR THOMAS Administration Hydralazine HCl 10 mg 01/10/21 14:00 01/22/21 06:23 Hydralazine 20 Mg/1 Ml Inj IV 10 mg Q4HR THOMAS Administration Hydromorphone HCl 0.25 mg 01/09/21 10:53 01/22/21 00:18 Hydromorphone 1 Mg/1 Ml Inj IV 0.25 mg Q6H PRN Administration Pain , Severe (7-10) Hydrophilic Ointment 1 applic 12/31/20 06:39 01/11/21 21:28 Lip Therapy Vaseline TP 1 applic Q2HR PRN Administration Dry Lips Piperacillin Sod/Tazobactam Sod 2.25 gm in 50 mls @ 100 mls/hr 01/13/21 12:00 01/22/21 04:33 Zosyn/Ns 2.25 Gm/50ml IV 01/24/21 20:29 100 mls/hr Q8H THOMAS Administration Protocol Sodium Chloride 100 mls @ 999 mls/hr 01/19/21 09:30 Nacl 0.9% IV RYLAND PRN Hypotension Amino Acids/Electrolytes/Dextrose 2,016 mls @ 84 mls/hr 01/21/21 20:00 01/21/21 20:57 Tpn Adult IV 01/22/21 19:59 84 mls/hr DAILY@2000 THOMAS Administration Protocol Octreotide Acetate 100 mcg/ 101 mls @ 200 mls/hr 01/21/21 15:00 01/21/21 23:16 Sodium Chloride IV 200 mls/hr Q8H [facility] Administration Amino Acids/Electrolytes/Dextrose 2,016 mls @ 84 mls/hr 01/22/21 20:00 Tpn Adult IV 01/23/21 19:59 DAILY@1999 [facility] Protocol Insulin Glargine 5 units 01/18/21 22:00 01/21/21 21:47 Insulin Glargine 100 Units/Ml SUB-Q 5 units QHS [facility] Administration Insulin Human Lispro 0 unit 01/03/21 12:00 01/22/21 06:26 Insulin Lispro 100 Unit/Ml SUB-Q Not Given Q6HR [facility] Protocol Metoprolol Tartrate 5 mg 12/30/20 12:00 01/22/21 06:25 Metoprolol Tartrate 5 Mg/5 Ml Inj IV Not Given Q4HR [facility] Multi-Ingred Cream/Lotion/Oil/Oint 1 applic 12/31/20 06:39 Mineral Oil/Petrolatum, White Ophth Oint 3.5 Gm OU Q4HR PRN Dry Eye(s) Scopolamine 1 each 01/15/21 11:00 01/21/21 10:12 Scopolamine Transdermal Patch 72 Hr TD 1 each Q3D [facility] Administration Sodium Chloride 10 ml 12/22/20 22:00 01/21/21 22:16 Sodium Chloride 0.9% 10 Ml Flush Syringe IV 10 ml BID [facility] Administration Sodium Chloride 10 ml 12/22/20 19:42 01/09/21 17:27 Sodium Chloride 0.9% 10 Ml Flush Syringe IV 10 ml PRN PRN Administration LINE FLUSH Nutrition/Malnutrition Assess - Dietary Evaluation Nutrition/Malnutrition Findings: Nutrition Notes Start: 12/24/20 12:36 Freq: Status: Active Protocol: Document 01/22/21 08:12 LP (Rec: 01/22/21 08:17 LP [id number]) Nutrition Notes Initial or Follow up Reassessment Current Diagnosis CKD (stage V CKD),Sepsis, Hypertension,Heart Failure, Small Bowel Obstruction Other Pertinent Diagnosis Peritonitis, SBO s/p resection Current Diet CPN at 84 ml/hr Labs/Tests Reviewed Pertinent Medications Reviewed Height 5 ft 7 in Weight 73 kg [place] Body Weight (kg) 67.27 BMI 25.2 Weight Status Overweight Subjective/Other Information TPN day 28. Pt pulled NGT this AM and refuses new to be placed. Percent of energy/protein needs met: 100%/100% Burn Absent Trauma Absent Current % PO Negligible Minimum of two criteria No #2 Nutrition Diagnosis Increased nutrient needs ( specify in comment below) Diagnosis Progress(for reassessment Continues documentation) #1 Nutrition Diagnosis Inadequate oral intake Diagnosis Progress(for reassessment Continues documentation) Is patient on ventilator? No Is Patient Ambulatory and/or Out of Bed No REE-([facility]-confined to bed) [phone] Kcal/Kg value to use for calculation 22 Approximate Energy Requirements Using 1606 kcal/Kg Calculation Used for Recommendations Kcal/kg Additional Notes Pro needs: 101-121 g/day (1.25 -1.5 g/kg AdjBW, 81kg) Fluid needs per MD. Nutrition Intervention Change Diet Order: Continue CPN Nutrition Support: Continous CPN at 84 ml/hr. MVI Kcal 1,674 Protein (gm) 121 Carbohydrates (gm) 350 Fat (gm) 0 Fluid (mL) 2,016 Fiber (gm) 0 Goal #1 Meet at least 75% of estimated energy and protein needs via CPN Anticipated Discharge Needs: continuous TPN at 84ml/hr Follow-Up By: 01/23/21 Additional Comments Labs in AM: BMP, Mg, Phos
[2021-01-22] MEDS: HALOPERIDOL LACTATE 5 MG/1 ML INJ IV PRN ×2 (09:47→23:56)
--- NOTE | 2021-01-22 09:47 | Progress Note ---
Assessment and Plan 1. Paroxysmal atrial fibrillation 2. Essential hypertension 3. End-stage renal disease on hemodialysis 4. Anemia 5. Status post acute small bowel obstruction with exploratory laparotomy. Plan. Currently patient is in a sinus rhythm cardiac paez stable. Continue management as per hospitalist note. Subjective Date of service: 01/22/21 Principal diagnosis: Ac hypoxemic resp failure; Severe Sepsis; Peritonitis; Acute SBO; ESRD; CHF Interval history: No cardiac symptoms Objective Vital Signs Temp Pulse Pulse Resp Resp BP Pulse Ox 01/22/21 08:00 98.5 F 62 67 17 138/72 98 01/22/21 07:00 99.5 F 01/22/21 06:25 65 139/79 01/22/21 06:23 68 139/79 01/22/21 06:00 58 L 16 139/79 01/22/21 04:00 97.6 F 63 67 14 131/78 98 01/22/21 02:01 64 18 140/68 01/22/21 00:01 70 24 127/66 01/22/21 00:00 97.8 F 69 67 14 134/69 98 01/21/21 22:01 69 18 127/66 96 01/21/21 22:00 16 01/21/21 21:47 65 136/61 01/21/21 21:45 71 136/61 01/21/21 20:00 98.6 F 70 67 14 138/67 98 01/21/21 18:47 58 L 01/21/21 18:15 58 L 01/21/21 18:00 60 16 138/67 01/21/21 16:00 98.5 F 71 62 18 130/49 98 01/21/21 15:02 63 126/68 01/21/21 14:00 63 19 126/68 01/21/21 13:15 64 134/70 01/21/21 12:00 98.3 F 69 67 20 134/70 98 01/21/21 11:00 98.0 F 01/21/21 10:49 14 01/21/21 10:13 68 134/65 01/21/21 10:11 68 134/65 01/21/21 10:00 63 22 16 128/69 01/21/21 09:55 58 L 134/65 - Physical Examination General: Appears Well, No Apparent Distress HEENT: Positive: PERRL Neck: Positive: neck supple Cardiac: Positive: Regular Rate, S1/S2, PMI, Dilated, Laterally Displaced. Negative: S3, S4 Lungs: Positive: clear to auscultation, No Wheeze, Rales, Rhonchi Neuro: Positive: Weakness (Sedated, on the vent) Abdomen: Positive: Soft, Other (post op) Skin: Positive: Clear Extremities: Absent: edema - Labs and Meds Comprehensive Metabolic Panel 01/22/21 Range/Units 04:00 Sodium 140 (137-145) mmol/L Potassium 3.9 (3.6-5.0) mmol/L Chloride 101.2 (98-107) mmol/L Carbon Dioxide 26 (22-30) mmol/L BUN 65 H (9-20) mg/dL Creatinine 8.2 H D (0.8-1.3) mg/dL Glucose 111 H (75-100) mg/dL Calcium 8.7 (8.4-10.2) mg/dL - Telemetry EKG Rhythm: Sinus Rhythm - Allied health notes Allied health notes reviewed: nursing
[2021-01-22] MEDS: OCTREOTIDE 100 MCG in SODIUM CHLORIDE 0.9% 100 ML IV SCH ×3 (10:22→22:15)
[2021-01-22] MEDS: HEPARIN 5,000 UNIT/1 ML VIAL SUB-Q SCH ×2 (10:23→21:24)
[2021-01-22] MEDS: FAMOTIDINE 20 MG/2 ML INJ IV SCH ×2 (10:23→21:24)
--- NOTE | 2021-01-22 10:36 | Progress Note ---
Assessment and Plan Cultures: 12/22/2020 blood culture: Streptococcus bovis, Prevotella 12/22/2020 PD fluid culture: No growth 12/24/2020 tracheal aspirate culture: No growth 12/24/2020 blood culture: No growth 12/31/2020 sputum culture: No growth A/P: 60-year-old male with ESRD on PD, Crohn's disease, CHF, gastroesophageal reflux disease was admitted to the hospital with complaints of abdominal pain and fever: #Severe sepsis with shock: improved. Secondary to small bowel obstruction/necrotic bowel with associated peritonitis. Status post exploratory laparotomy on 12/23/2020 with extensive lysis, primary anastomosis, found to have necrotic segment of small bowel. #Small bowel obstruction/necrotic bowel: with concern for PD associated peritonitis: Nephrology and general surgery following. Status post exploratory laparotomy on 12/23/2020 with extensive lysis, primary anastomosis, found to have necrotic segment of small bowel. PD catheter remains in place. S/p ex lap, resection of perforated anastamosis, washout and abthera wound vac placement on 01/01. Repeat CT abdomen showed no new abscesses, noted small free fluid. S/p Exploratory laparotomy, Right hemicolectomy, Peritoneal lavage, Partial omentectomy, ABThera wound VAC placement on 01/03/2021. Complicated intra- abdominal situation per d/w Dr. Sanchez, plan to continue IV abx for now, has limited surgical options at this time. #Streptococcus bovis bacteremia and Prevotella bacteremia: secondary to above. TTE without obvious vegetations. Repeat blood cultures negative. #ESRD: Renally dose antibiotics. Used to be on PD. On HD. #Acute respiratory failure: off the vent. #Anemia: Severe. Recs: -continue IV Zosyn, plan to stop at 3 weeks from last surgery (end date: 01/24/2021) Yesika Denny MD, FACP [facility] O: [phone] F: [phone] Subjective Date of service: 01/22/21 Principal diagnosis: Ac hypoxemic resp failure; Severe Sepsis; Peritonitis; Acute SBO; ESRD; CHF Interval history: Afebrile. Patient pulled his NG tube last night. D/w RN. Objective - Exam Narrative Exam: Physical Exam: Constitutional: awake alert, calm Head, Ears, Nose: Normocephalic, atraumatic. External ears, nose normal Eyes: Conjunctivae/corneas clear. No icterus. No ptosis. Neck: supple Cardiovascular: S1, S2 + Respiratory: AE fair bilaterally GI: VAC +, bowel sounds + Musculoskeletal: No pedal edema, no cyanosis. Skin: No rash or abscess Hem/Lymphatic: No palpable cervical or supraclavicular nodes. No lymphangitis Psych: calm, no agitation Neurological: awake, alert, oriented. - Constitutional Vitals: Vital Signs Temp Pulse Resp BP Pulse Ox 98.5 F 70 19 140/73 98 01/22/21 08:00 01/22/21 10:22 01/22/21 10:00 01/22/21 10:22 01/22/21 08:00 Temperature -Last 24 Hours Temperature 98.5 F Temperature 99.5 F Temperature 97.6 F Temperature 97.8 F Temperature 98.6 F Temperature 98.5 F Temperature 98.3 F Temperature 98.0 F - Labs CBC & Chem 7: 01/20/21 03:35 01/22/21 04:00 Labs: Abnormal lab results 01/21/21 01/21/21 01/21/21 Range/Units 05:27 11:35 17:53 BUN (9-20) mg/dL Creatinine (0.8-1.3) mg/dL Glucose (75-100) mg/dL POC Glucose 107 H 133 H 124 H (70-105) mg/dL 01/22/21 01/22/21 01/22/21 Range/Units 00:20 04:00 06:09 BUN 65 H (9-20) mg/dL Creatinine 8.2 H D (0.8-1.3) mg/dL Glucose 111 H (75-100) mg/dL POC Glucose 122 H 122 H (70-105) mg/dL
--- NOTE | 2021-01-22 12:02 | Progress Note ---
Assessment and Plan Assessment: * ESRD previouasly on peritoneal dialysis; now on back up HD (on peritoneal dialysis for 2 years) * Small bowel obstruction --s/p ex-lap with jejuno-ileal anastamosis --s/p ex lap with extensive lysis of adhesions and two small bowel resections with primary anastamosis for SBO with necrotic segment small bowel. --s/p ex lap, resection of perforated anastamosis, washout and abthera wound vac placement. --s/p ex lap with right hemicolectomy. * Acute respiratory failure * Septic shock - resolved * Bacteremia - resolved * Hyperkalemia * Anemia of ESRD * Atrial fibrilation, new onset * Post op ileus Plan: * Continue HD MWF via left IJ permcath (12/27) * 3K bath with dialysis * UF as tolerated * Epogen 10k units w/ dialysis * Rate control per cardiology * Abx per primary team/ID * Nutrition per primary team * Maintatin MAP >65 * Surgery notes appreciated * He will also require outpatient hemodialysis chair prior to discharge * Most likely secondary to catabolic state. Dialysis time was increased to 4 hours. Subjective Date of service: 01/22/21 Principal diagnosis: Ac hypoxemic resp failure; Severe Sepsis; Peritonitis; Acute SBO; ESRD; CHF Interval history: resting in bed event noted Objective - Exam Narrative Exam: - General Limitations: Physical Limitation General appearance: alert, in no apparent distress - Head Head exam: Present: atraumatic, normocephalic - Eye Eye exam: Present: normal appearance, EOMI - ENT ENT exam: Present: mucous membranes moist - Neck Neck exam: Present: normal inspection - Respiratory Respiratory exam: Present: normal lung sounds bilaterally. Absent: respiratory distress - Cardiovascular Cardiovascular Exam: Present: normal rhythm, tachycardia - GI/Abdominal GI/Abdominal exam: Present: soft, distended (slightly), tenderness (periumbilical ) - Extremities Exam Extremities exam: Present: normal inspection - Neurological Exam Neurological exam: Present: alert, oriented X3 - Psychiatric Psychiatric exam: Present: normal affect, normal mood - Skin Skin exam: Present: warm, dry, intact, normal color - Vital Signs Vital signs: Vital Signs - 12hr 01/22/21 01/22/21 01/22/21 02:01 04:00 06:00 Temperature 97.6 F Pulse Rate 64 63 58 L Pulse Rate [ 67 From Monitor] Respiratory 18 14 16 Rate Blood Pressure 140/68 131/78 139/79 O2 Sat by Pulse 98 Oximetry 01/22/21 01/22/21 01/22/21 06:23 06:25 07:00 Temperature 99.5 F Pulse Rate 68 65 Pulse Rate [ From Monitor] Respiratory Rate Blood Pressure 139/79 139/79 O2 Sat by Pulse Oximetry 01/22/21 01/22/21 01/22/21 08:00 10:00 10:22 Temperature 98.5 F Pulse Rate 62 70 70 Pulse Rate [ 67 From Monitor] Respiratory 17 19 Rate Blood Pressure 138/72 140/73 140/73 O2 Sat by Pulse 98 Oximetry 01/22/21 11:52 Temperature 98.2 F Pulse Rate Pulse Rate [ From Monitor] Respiratory Rate Blood Pressure O2 Sat by Pulse Oximetry - Lab 01/20/21 03:35 01/22/21 04:00 Most recent lab results ABG pH 7.345 pH Units (7.350-7.450) L 01/07/21 17:14 ABG pCO2 40.3 mm Hg 01/07/21 17:14 ABG pO2 67.4 mm Hg (80.0-90.0) L 01/07/21 17:14 ABG HCO3 21.5 mmol/L (20.0-26.0) 01/07/21 17:14 ABG O2 Saturation 94.3 % (95.0-99.0) L 01/07/21 17:14 Calcium 8.7 mg/dL (8.4-10.2) 01/22/21 04:00 Phosphorus 2.50 mg/dL (2.5-4.5) 01/22/21 04:00 Magnesium 2.10 mg/dL (1.7-2.3) 01/22/21 04:00 Medications & Allergies - Medications Allergies/Adverse Reactions: Allergies No Known Allergies Allergy (Verified 06/09/20 15:27) Home Medications: Home Medications Medication Instructions Recorded Confirmed Last Taken Type Albuterol Mdi (or & Nicu Only) 2 puff IH QID PRN #1 inhalation 04/01/17 11/01/20 10/31/20 09:00 Rx [ProAir HFA Inhaler] Calcium Acetate 667 mg PO DAILY 04/20/20 11/01/20 10/31/20 09:00 History Centrum Men's Tablet 1 tab PO DAILY 04/20/20 11/01/20 10/31/20 09:00 History Cinacalcet 30 mg PO DAILY 04/20/20 11/01/20 10/31/20 09:00 History Dialyvite with Zinc Tablet 1 tab PO DAILY 04/20/20 11/01/20 10/31/20 09:00 History Magnesium 250 mg PO BID 04/20/20 11/01/20 10/31/20 17:00 History Triamcinolone 0.1% 1 1000units TRANSDERMA DAILY 04/20/20 11/01/20 10/31/20 09:00 History Vit B12/Folic Acid/B6/Aa No.15 1,000 mg PO DAILY 04/20/20 11/01/20 10/31/20 09:00 History amLODIPine 10 mg PO DAILY 06/09/20 11/01/20 10/31/20 09:00 History AtorvaSTATin 40 mg PO HS 11/01/20 11/01/20 10/31/20 21:00 History Benadryl 25 mg PO HS 11/01/20 11/01/20 10/31/20 21:00 History Diclofenac 1 TRANSDERMA QID 11/01/20 10/31/20 19:00 History Fluticasone Propionate 1 spray INTRANASAL DAILY 11/01/20 11/01/20 10/31/20 09:00 History Vitamin D3 2,000 units 11/01/20 10/31/20 09:00 History carvediloL 12.5 mg PO DAILY 11/01/20 11/01/20 10/31/20 09:00 History hydrALAZINE 100 mg PO TID 11/01/20 11/01/20 10/31/20 19:00 History Active Medications: Generic Name Dose Route Start Last Admin Trade Name Freq PRN Reason Stop Dose Admin Acetaminophen 650 mg 12/31/20 15:30 01/21/21 05:28 Acetaminophen 650 Mg Rect Supp LA 650 mg Q6H PRN Administration Non Cardiac Pain or Temp>100.5 Clonidine HCl 0.2 mg 01/11/21 10:00 01/18/21 10:11 Clonidine Tts 0.2 Mg/24 Hr Patch TD 0.2 mg We THOMAS Administration Dextrose 50 ml 01/14/21 17:59 01/18/21 15:10 Dextrose 50% In Water (25gm) 50 Ml Syringe IV 20 ml Q30MIN PRN Administration Hypoglycemia Protocol Digoxin 0.125 mg 01/09/21 12:00 01/21/21 13:15 Digoxin 0.5 Mg/2 Ml Inj IV 0.125 mg Q48H [facility] Administration Diphenhydramine HCl 50 mg 01/20/21 10:10 01/22/21 02:31 Diphenhydramine 50 Mg/Ml Vial IV 50 mg Q6H PRN Administration Itching Famotidine 10 mg 12/24/20 13:00 01/22/21 10:23 Famotidine 20 Mg/2 Ml Inj IV 10 mg BID [facility]OMAS Administration Haloperidol Lactate 5 mg 12/29/20 14:16 01/22/21 09:47 Haloperidol Lactate 5 Mg/1 Ml Inj IV 5 mg Q12H PRN Administration Agitation Heparin Sodium (Porcine) 5,000 unit 12/24/20 10:00 01/22/21 10:23 Heparin 5,000 Unit/1 Ml Vial SUB-Q 5,000 unit Q12HR [facility] Administration Hydralazine HCl 10 mg 01/10/21 14:00 01/22/21 10:22 Hydralazine 20 Mg/1 Ml Inj IV 10 mg Q4HR [facility] Administration Hydromorphone HCl 0.25 mg 01/09/21 10:53 01/22/21 00:18 Hydromorphone 1 Mg/1 Ml Inj IV 0.25 mg Q6H PRN Administration Pain , Severe (7-10) Hydrophilic Ointment 1 applic 12/31/20 06:39 01/11/21 21:28 Lip Therapy Vaseline TP 1 applic Q2HR PRN Administration Dry Lips Piperacillin Sod/Tazobactam Sod 2.25 gm in 50 mls @ 100 mls/hr 01/13/21 12:00 01/22/21 04:33 Zosyn/Ns 2.25 Gm/50ml IV 01/24/21 20:29 100 mls/hr Q8H [facility] Administration Protocol Sodium Chloride 100 mls @ 999 mls/hr 01/19/21 09:30 Nacl 0.9% IV [place] PRN Hypotension Amino Acids/Electrolytes/Dextrose 2,016 mls @ 84 mls/hr 01/21/21 20:00 01/21/21 20:57 Tpn Adult IV 01/22/21 19:59 84 mls/hr DAILY@1999 [facility] Administration Protocol Octreotide Acetate 100 mcg/ 101 mls @ 200 mls/hr 01/21/21 15:00 01/22/21 10:22 Sodium Chloride IV 200 mls/hr Q8H [facility] Administration Amino Acids/Electrolytes/Dextrose 2,016 mls @ 84 mls/hr 01/22/21 20:00 Tpn Adult IV 01/23/21 19:59 DAILY@1999 [facility] Protocol Insulin Glargine 5 units 01/18/21 22:00 01/21/21 21:47 Insulin Glargine 100 Units/Ml SUB-Q 5 units QHS [facility] Administration Insulin Human Lispro 0 unit 01/03/21 12:00 01/22/21 06:26 Insulin Lispro 100 Unit/Ml SUB-Q Not Given Q6HR [facility] Protocol Metoprolol Tartrate 5 mg 12/30/20 12:00 01/22/21 10:22 Metoprolol Tartrate 5 Mg/5 Ml Inj IV 5 mg Q4HR [facility] Administration Multi-Ingred Cream/Lotion/Oil/Oint 1 applic 12/31/20 06:39 Mineral Oil/Petrolatum, White Ophth Oint 3.5 Gm OU Q4HR PRN Dry Eye(s) Scopolamine 1 each 01/15/21 11:00 01/21/21 10:12 Scopolamine Transdermal Patch 72 Hr TD 1 each Q3D [facility] Administration Sodium Chloride 10 ml 12/22/20 22:00 01/22/21 10:23 Sodium Chloride 0.9% 10 Ml Flush Syringe IV 10 ml BID [facility] Administration Sodium Chloride 10 ml 12/22/20 19:42 01/09/21 17:27 Sodium Chloride 0.9% 10 Ml Flush Syringe IV 10 ml PRN PRN Administration LINE FLUSH
--- NOTE | 2021-01-22 12:21 | Progress Note ---
Assessment and Plan POD#29 s/p ex lap with extensive lysis of adhesions and two small bowel resections with primary anastamosis for SBO with necrotic segment small bowel. POD#20 s/p ex lap, resection of perforated anastamosis, washout and abthera wound vac placement. POD#18 s/p ex lap with right hemicolectomy. POD#16 s/p ex lap, with jejunal-colonic anastamosis and closure of abdomen. Afebrile and stable. - concerned about a leak at his anastamosis. Clinically improved with decreased output that is becoming more serous. Blood supply was evaluated at time of last surgery with ICG and found to be adequate. Pt was on several days of steroids for tongue swelling which may have contributed to leak. Currently since he is stable and afebrile will treat like controlled fistua. He is extremely high risk for additional surgery with tissues that are extremely friable and previous scar tissue that makes his anatomy very difficult to manipulate. If he requires operative intervention will likely need to be left in discontinuity and eventual ileostomy as he has already failed two anastamoses. Continue HARIS drain suction. Strict NPO since he has no NGT at this time. If HARIS drainage increases significantly will have to talk to patient about the impor tance of putting it in again. HARIS drain must be secured and kept in place. Since HARIS drain has continued to decrease over the last several days, will continue q 8h ocreotide. No additional changes in management at time. Will order PT at bedside. Need to ensure drain is protected during movements. Prognosis is gaurded. Subjective Date of service: 01/22/21 Patient Reports: Positive: no new complaints (Pt's NGT came out overnight. He denies pulling it out. He also refuses putting it back in. He denies n/v.) Objective Vital Signs - 12hr 01/22/21 01/22/21 01/22/21 02:01 04:00 06:00 Temperature 97.6 F Pulse Rate 64 63 58 L Pulse Rate [ 67 From Monitor] Respiratory 18 14 16 Rate Blood Pressure 140/68 131/78 139/79 O2 Sat by Pulse 98 Oximetry 01/22/21 01/22/21 01/22/21 06:23 06:25 07:00 Temperature 99.5 F Pulse Rate 68 65 Pulse Rate [ From Monitor] Respiratory Rate Blood Pressure 139/79 139/79 O2 Sat by Pulse Oximetry 01/22/21 01/22/21 01/22/21 08:00 10:00 10:22 Temperature 98.5 F Pulse Rate 62 70 70 Pulse Rate [ 67 From Monitor] Respiratory 17 19 Rate Blood Pressure 138/72 140/73 140/73 O2 Sat by Pulse 98 Oximetry 01/22/21 11:52 Temperature 98.2 F Pulse Rate Pulse Rate [ From Monitor] Respiratory Rate Blood Pressure O2 Sat by Pulse Oximetry - General physical appearance well developed, no distress, no pain - Respiratory normal expansion, normal respiratory effort - Abdomen soft, not tender, other (HARIS drain with bilious drainage 17cc recorded yesterd, 25cc so far today. wound vac is in place) - Labs 01/20/21 03:35 01/22/21 04:00 Diabetes panel 01/22/21 Range/Units 04:00 Sodium 140 (137-145) mmol/L Potassium 3.9 (3.6-5.0) mmol/L Chloride 101.2 (98-107) mmol/L Carbon Dioxide 26 (22-30) mmol/L BUN 65 H (9-20) mg/dL Creatinine 8.2 H D (0.8-1.3) mg/dL Glucose 111 H (75-100) mg/dL Calcium 8.7 (8.4-10.2) mg/dL Calcium panel 01/22/21 Range/Units 04:00 Calcium 8.7 (8.4-10.2) mg/dL Phosphorus 2.50 (2.5-4.5) mg/dL Pituitary panel 01/22/21 Range/Units 04:00 Sodium 140 (137-145) mmol/L Potassium 3.9 (3.6-5.0) mmol/L Chloride 101.2 (98-107) mmol/L Carbon Dioxide 26 (22-30) mmol/L BUN 65 H (9-20) mg/dL Creatinine 8.2 H D (0.8-1.3) mg/dL Glucose 111 H (75-100) mg/dL Calcium 8.7 (8.4-10.2) mg/dL Adrenal panel 01/22/21 Range/Units 04:00 Sodium 140 (137-145) mmol/L Potassium 3.9 (3.6-5.0) mmol/L Chloride 101.2 (98-107) mmol/L Carbon Dioxide 26 (22-30) mmol/L BUN 65 H (9-20) mg/dL Creatinine 8.2 H D (0.8-1.3) mg/dL Glucose 111 H (75-100) mg/dL Calcium 8.7 (8.4-10.2) mg/dL
--- NOTE | 2021-01-22 14:34 | Progress Note ---
Assessment and Plan Acute hypoxemic respiratory failure, s/p mechanical ventilatory support. Severe Sepsis with septic shock, resolved Peritonitis Acute small-bowel obstruction with tissue necrosis. End-stage renal disease, on dialysis. Hypertension. Crohn's disease. Gastroesophageal reflux disease. Heart failure with reduced ejection fraction. Hyperkalemia. Anemia that is normocytic. Lactic acidosis. Oropharyngeal dysphagia Continue all current care as documented -Strict NPO per general surgery, NO ice chips sine he has refused NGT to be replaced -Continue IV Zosyn, plan to stop at 3 weeks from last surgery end date: 01/24/2021 -Continue TPN. - continue to titrate supplemental oxygen for target SpO2 89-92% - continue bronchodilators with pulmonary hygiene per RT - HD/UF per nephrology prescription for toxin and volume control - avoid nephrotoxins, renally dose all medications - continue accuchecks with glycemic control per SSI (Target blood glucose of 140-180 mg/dL; avoid hypoglycemia) - continue to avoid benzodiazepines, reduce the possibility of delirium - prn analgesia per CPOT score - Maintenance of sleep-wake cycle, avoid delirium - Stress ulcer and VTE prophylaxis - continue mobility protocols for pressure ulcer prophylaxis - Monitor hemodynamics closely - continue other care per attending / other consultants CONDITION: FAIR PROGNOSIS: GUARDED CODE STATUS: FULL CODE Subjective Date of service: 01/22/21 Principal diagnosis: Ac hypoxemic resp failure; Severe Sepsis; Peritonitis; Acute SBO; ESRD; CHF Interval history: Patient is seen today for: Ac hypoxemic resp failure; Severe Sepsis; Peritonitis; Acute SBO; ESRD on Dialysis; HTN; Crohn's disease; HFrEF Seen and examined at bedside; 24hour events reviewed; nursing and respiratory care staff consulted; no adverse overnight events reported to me; resting in bed; remains on supplemental oxygen; he pulled out his NGT and refuses to have another one placed He denies any chest pain, no shortness of breath, no fevers or chills. Objective Vital Signs - 12hr 01/22/21 01/22/21 01/22/21 04:00 06:00 06:23 Temperature 97.6 F Pulse Rate 63 58 L 68 Pulse Rate [ 67 From Monitor] Respiratory 14 16 Rate Blood Pressure 131/78 139/79 139/79 O2 Sat by Pulse 98 Oximetry 01/22/21 01/22/21 01/22/21 06:25 07:00 08:00 Temperature 99.5 F 98.5 F Pulse Rate 65 62 Pulse Rate [ 67 From Monitor] Respiratory 17 Rate Blood Pressure 139/79 138/72 O2 Sat by Pulse 98 Oximetry 01/22/21 01/22/21 01/22/21 10:00 10:22 11:52 Temperature 98.2 F Pulse Rate 70 70 Pulse Rate [ From Monitor] Respiratory 19 Rate Blood Pressure 140/73 140/73 O2 Sat by Pulse Oximetry 01/22/21 12:00 Temperature 98.6 F Pulse Rate 58 L Pulse Rate [ 62 From Monitor] Respiratory 17 Rate Blood Pressure 138/71 O2 Sat by Pulse 98 Oximetry Constitutional: no acute distress, other (elderly male with normal respiratory effort at rest) Eyes: non-icteric ENT: oropharynx dry, oropharyngeal exudate pre Neck: supple, no lymphadenopathy, no JVD Effort: normal Ascultation: Bilateral: clear, diminished breath sounds, rales, rhonchi Percussion: Bilateral: not dull Cardiovascular: regular rate and rhythm, other (S1,S2) Gastrointestinal: hypoactive bowel sounds, soft, non-tender, non-distended (protuberant), other (Midline abdominal incision ) Integumentary: other (Midline abdominal incision ) Extremities: no cyanosis, no edema, pulses normal, no ischemia or petechiae Neurologic: non-focal exam (grossly), pupils equal and round, CN II-XII normal Psychiatric: mood appropriate, affect normal CBC and BMP: 01/20/21 03:35 01/23/21 05:45 ABG, PT/INR, D-dimer: ABG ABG pH 7.345 pH Units (7.350-7.450) L 01/07/21 17:14 POC ABG pCO2 41.4 mmHg (32.0-48.0) 01/07/21 03:07 ABG pCO2 40.3 mm Hg 01/07/21 17:14 POC ABG pO2 94.5 mmHg (83-108) 01/07/21 03:07 ABG pO2 67.4 mm Hg (80.0-90.0) L 01/07/21 17:14 POC ABG HCO3 22.7 01/07/21 03:07 ABG O2 Saturation 94.3 % (95.0-99.0) L 01/07/21 17:14 PT/INR, D-dimer PT 16.9 Sec. (12.2-14.9) H 01/01/21 12:45 INR 1.39 (0.87-1.13) H 01/01/21 12:45 Abnormal lab findings: Abnormal Labs 12/22/20 12/22/20 12/22/20 14:38 14:38 14:38 WBC RBC Hgb 11.2 L Hct 35.0 L MCV MCHC RDW 16.7 H Plt Count Lymph % (Auto) Roberts % (Auto) Lymph # (Auto) Roberts # (Auto) Seg Neutrophils % Seg Neuts % (Manual) 94.0 H Lymphocytes % (Manual) 5.0 L Monocytes % (Manual) Seg Neutrophils # Seg Neutrophils # Man Lymphocytes # (Manual) 0.3 L Monocytes # (Manual) PT INR ABG pH POC ABG pCO2 POC ABG pO2 ABG pO2 ABG HCO3 ABG O2 Saturation ABG Base Excess ABG Hemoglobin ABG Oxyhemoglobin ABG Sodium ABG Potassium ABG Chloride ABG Glucose Oxyhemoglobin Sodium Potassium Chloride Carbon Dioxide BUN 58 H Creatinine 13.2 H Glucose 113 H POC Glucose Lactic Acid 3.60 H* Calcium Phosphorus Magnesium Total Bilirubin 1.30 H AST ALT Alkaline Phosphatase 155 H Total Protein Albumin Triglycerides Arterial Blood Glucose Arterial Blood Ionized Calcium Digoxin Crossmatch 12/22/20 12/22/20 12/23/20 16:26 17:47 05:22 WBC RBC Hgb Hct MCV MCHC RDW Plt Count Lymph % (Auto) Roberts % (Auto) Lymph # (Auto) Roberts # (Auto) Seg Neutrophils % Seg Neuts % (Manual) Lymphocytes % (Manual) Monocytes % (Manual) Seg Neutrophils # Seg Neutrophils # Man Lymphocytes # (Manual) Monocytes # (Manual) PT INR ABG pH POC ABG pCO2 POC ABG pO2 ABG pO2 ABG HCO3 ABG O2 Saturation ABG Base Excess ABG Hemoglobin ABG Oxyhemoglobin ABG Sodium ABG Potassium ABG Chloride ABG Glucose Oxyhemoglobin Sodium Potassium Chloride Carbon Dioxide BUN Creatinine Glucose POC Glucose Lactic Acid 2.80 H* 3.10 H* 2.30 H* Calcium Phosphorus Magnesium Total Bilirubin AST ALT Alkaline Phosphatase Total Protein Albumin Triglycerides Arterial Blood Glucose Arterial Blood Ionized Calcium Digoxin Crossmatch 12/23/20 12/23/20 12/23/20 05:22 05:22 06:35 WBC 12.1 H RBC Hgb 11.0 L Hct 33.7 L MCV MCHC RDW 16.9 H Plt Count Lymph % (Auto) Roberts % (Auto) Lymph # (Auto) Roberts # (Auto) Seg Neutrophils % Seg Neuts % (Manual) 93.0 H Lymphocytes % (Manual) 1.0 L Monocytes % (Manual) Seg Neutrophils # Seg Neutrophils # Man 11.3 H Lymphocytes # (Manual) 0.1 L Monocytes # (Manual) PT INR ABG pH POC ABG pCO2 POC ABG pO2 ABG pO2 ABG HCO3 ABG O2 Saturation ABG Base Excess ABG Hemoglobin ABG Oxyhemoglobin ABG Sodium ABG Potassium ABG Chloride ABG Glucose Oxyhemoglobin Sodium Potassium 5.7 H D Chloride Carbon Dioxide BUN 73 H Creatinine 14.2 H Glucose POC Glucose Lactic Acid 2.30 H* Calcium 7.9 L Phosphorus Magnesium Total Bilirubin 1.40 H AST 119 H ALT 130 H Alkaline Phosphatase 183 H Total Protein 6.1 L Albumin 3.6 L Triglycerides Arterial Blood Glucose Arterial Blood Ionized Calcium Digoxin Crossmatch 12/23/20 12/23/20 12/23/20 11:40 13:53 16:47 WBC RBC Hgb 10.0 L Hct 30.4 L MCV MCHC RDW Plt Count Lymph % (Auto) Roberts % (Auto) Lymph # (Auto) Roberts # (Auto) Seg Neutrophils % Seg Neuts % (Manual) Lymphocytes % (Manual) Monocytes % (Manual) Seg Neutrophils # Seg Neutrophils # Man Lymphocytes # (Manual) Monocytes # (Manual) PT INR ABG pH POC ABG pCO2 POC ABG pO2 137.5 H ABG pO2 ABG HCO3 ABG O2 Saturation ABG Base Excess ABG Hemoglobin 9.7 L ABG Oxyhemoglobin ABG Sodium 134.1 L ABG Potassium 6.6 H ABG Chloride ABG Glucose 103 H Oxyhemoglobin Sodium Potassium Chloride Carbon Dioxide BUN Creatinine Glucose POC Glucose Lactic Acid Calcium Phosphorus Magnesium Total Bilirubin AST ALT Alkaline Phosphatase Total Protein Albumin Triglycerides Arterial Blood Glucose 103 H Arterial Blood Ionized Calcium 3.8 L Digoxin Crossmatch See Detail 12/23/20 12/23/20 12/24/20 20:35 20:40 01:20 WBC RBC Hgb Hct MCV MCHC RDW Plt Count Lymph % (Auto) Roberts % (Auto) Lymph # (Auto) Roberts # (Auto) Seg Neutrophils % Seg Neuts % (Manual) Lymphocytes % (Manual) Monocytes % (Manual) Seg Neutrophils # Seg Neutrophils # Man Lymphocytes # (Manual) Monocytes # (Manual) PT INR ABG pH 7.252 L POC ABG pCO2 POC ABG pO2 ABG pO2 50.1 L ABG HCO3 ABG O2 Saturation 81.1 L ABG Base Excess -5.9 L ABG Hemoglobin 12.1 L ABG Oxyhemoglobin ABG Sodium ABG Potassium ABG Chloride ABG Glucose Oxyhemoglobin 78.6 L Sodium 134 L Potassium 6.9 H* D 6.3 H* Chloride Carbon Dioxide 18 L 20 L BUN 87 H 91 H Creatinine 15.3 H 15.3 H Glucose 103 H POC Glucose Lactic Acid Calcium 6.9 L 7.5 L Phosphorus Magnesium Total Bilirubin AST ALT Alkaline Phosphatase Total Protein Albumin Triglycerides Arterial Blood Glucose Arterial Blood Ionized Calcium Digoxin Crossmatch 12/24/20 12/24/20 12/24/20 04:00 10:29 10:29 WBC RBC 3.49 L Hgb 10.5 L Hct 31.2 L MCV MCHC RDW 17.5 H Plt Count 124 L Lymph % (Auto) 3.7 L Roberts % (Auto) 9.8 H Lymph # (Auto) 0.2 L Roberts # (Auto) Seg Neutrophils % 85.9 H Seg Neuts % (Manual) Lymphocytes % (Manual) Monocytes % (Manual) Seg Neutrophils # Seg Neutrophils # Man Lymphocytes # (Manual) Monocytes # (Manual) PT INR ABG pH POC ABG pCO2 28.1 L POC ABG pO2 ABG pO2 ABG HCO3 ABG O2 Saturation ABG Base Excess ABG Hemoglobin ABG Oxyhemoglobin ABG Sodium 133.9 L ABG Potassium 5.3 H ABG Chloride 108.0 H ABG Glucose Oxyhemoglobin Sodium Potassium 5.6 H Chloride Carbon Dioxide 19 L BUN 99 H Creatinine 16.9 H Glucose 52 L POC Glucose Lactic Acid Calcium 7.6 L Phosphorus Magnesium Total Bilirubin 3.50 H AST 67 H ALT 71 H Alkaline Phosphatase Total Protein 3.5 L D Albumin 2.1 L Triglycerides Arterial Blood Glucose Arterial Blood Ionized Calcium 4.0 L Digoxin Crossmatch 12/25/20 12/25/20 12/25/20 03:33 04:00 04:00 WBC 3.8 L RBC 2.90 L Hgb 8.6 L Hct 25.7 L MCV MCHC RDW 16.7 H Plt Count 113 L Lymph % (Auto) Roberts % (Auto) Lymph # (Auto) Roberts # (Auto) Seg Neutrophils % Seg Neuts % (Manual) Lymphocytes % (Manual) Monocytes % (Manual) Seg Neutrophils # Seg Neutrophils # Man Lymphocytes # (Manual) Monocytes # (Manual) PT INR ABG pH 7.544 H POC ABG pCO2 28.2 L POC ABG pO2 62.8 L ABG pO2 ABG HCO3 ABG O2 Saturation ABG Base Excess ABG Hemoglobin 9.3 L ABG Oxyhemoglobin 93.0 L ABG Sodium 130.3 L ABG Potassium ABG Chloride ABG Glucose 97 H Oxyhemoglobin Sodium Potassium Chloride Carbon Dioxide BUN 62 H Creatinine 11.4 H Glucose POC Glucose Lactic Acid Calcium 7.7 L Phosphorus 5.00 H Magnesium Total Bilirubin AST ALT Alkaline Phosphatase Total Protein Albumin Triglycerides Arterial Blood Glucose 97 H Arterial Blood Ionized Calcium 3.9 L Digoxin Crossmatch 12/26/20 12/26/20 12/27/20 04:46 Unknown 03:40 WBC 4.1 L RBC 2.61 L Hgb 7.8 L Hct 23.4 L MCV MCHC RDW 17.1 H Plt Count 119 L Lymph % (Auto) 5.3 L Roberts % (Auto) 10.6 H Lymph # (Auto) 0.2 L Roberts # (Auto) Seg Neutrophils % 78.8 H Seg Neuts % (Manual) Lymphocytes % (Manual) Monocytes % (Manual) Seg Neutrophils # Seg Neutrophils # Man Lymphocytes # (Manual) Monocytes # (Manual) PT INR ABG pH 7.333 L 7.332 L POC ABG pCO2 POC ABG pO2 ABG pO2 ABG HCO3 26.9 H ABG O2 Saturation ABG Base Excess -2.4 L ABG Hemoglobin 6.8 L 7.2 L ABG Oxyhemoglobin ABG Sodium ABG Potassium ABG Chloride ABG Glucose Oxyhemoglobin 93.0 L 93.1 L Sodium Potassium Chloride Carbon Dioxide BUN Creatinine Glucose POC Glucose Lactic Acid Calcium Phosphorus Magnesium Total Bilirubin AST ALT Alkaline Phosphatase Total Protein Albumin Triglycerides Arterial Blood Glucose Arterial Blood Ionized Calcium Digoxin Crossmatch 12/27/20 12/27/20 12/27/20 06:40 06:40 11:22 WBC 4.4 L RBC 2.49 L Hgb 7.4 L Hct 22.4 L MCV MCHC RDW 17.1 H Plt Count 111 L Lymph % (Auto) 6.7 L Roberts % (Auto) 12.6 H Lymph # (Auto) 0.3 L Roberts # (Auto) Seg Neutrophils % 77.6 H Seg Neuts % (Manual) Lymphocytes % (Manual) Monocytes % (Manual) Seg Neutrophils # Seg Neutrophils # Man Lymphocytes # (Manual) Monocytes # (Manual) PT INR ABG pH POC ABG pCO2 POC ABG pO2 ABG pO2 ABG HCO3 ABG O2 Saturation ABG Base Excess ABG Hemoglobin ABG Oxyhemoglobin ABG Sodium ABG Potassium ABG Chloride ABG Glucose Oxyhemoglobin Sodium Potassium Chloride Carbon Dioxide BUN 64 H Creatinine 9.8 H Glucose 147 H POC Glucose 134 H Lactic Acid Calcium 8.3 L Phosphorus 5.00 H Magnesium Total Bilirubin 3.70 H AST 72 H ALT Alkaline Phosphatase 142 H Total Protein 5.1 L D Albumin 2.9 L Triglycerides Arterial Blood Glucose Arterial Blood Ionized Calcium Digoxin Crossmatch 12/27/20 12/27/20 12/28/20 17:29 23:31 03:09 WBC RBC Hgb Hct MCV MCHC RDW Plt Count Lymph % (Auto) Roberts % (Auto) Lymph # (Auto) Roberts # (Auto) Seg Neutrophils % Seg Neuts % (Manual) Lymphocytes % (Manual) Monocytes % (Manual) Seg Neutrophils # Seg Neutrophils # Man Lymphocytes # (Manual) Monocytes # (Manual) PT INR ABG pH 7.474 H POC ABG pCO2 POC ABG pO2 ABG pO2 ABG HCO3 ABG O2 Saturation ABG Base Excess ABG Hemoglobin 7.8 L ABG Oxyhemoglobin ABG Sodium ABG Potassium ABG Chloride ABG Glucose Oxyhemoglobin Sodium Potassium Chloride Carbon Dioxide BUN Creatinine Glucose POC Glucose 121 H 131 H Lactic Acid Calcium Phosphorus Magnesium Total Bilirubin AST ALT Alkaline Phosphatase Total Protein Albumin Triglycerides Arterial Blood Glucose Arterial Blood Ionized Calcium Digoxin Crossmatch 12/28/20 12/28/20 12/28/20 05:37 05:40 05:40 WBC 4.3 L RBC 2.40 L Hgb 7.2 L Hct 21.5 L MCV MCHC RDW 17.4 H Plt Count 112 L Lymph % (Auto) 6.5 L Roberts % (Auto) 16.7 H Lymph # (Auto) 0.3 L Roberts # (Auto) Seg Neutrophils % 71.1 H Seg Neuts % (Manual) Lymphocytes % (Manual) Monocytes % (Manual) Seg Neutrophils # Seg Neutrophils # Man Lymphocytes # (Manual) Monocytes # (Manual) PT INR ABG pH POC ABG pCO2 POC ABG pO2 ABG pO2 ABG HCO3 ABG O2 Saturation ABG Base Excess ABG Hemoglobin ABG Oxyhemoglobin ABG Sodium ABG Potassium ABG Chloride ABG Glucose Oxyhemoglobin Sodium Potassium Chloride Carbon Dioxide BUN 85 H Creatinine 11.5 H Glucose 132 H POC Glucose 121 H Lactic Acid Calcium 8.2 L Phosphorus Magnesium 2.40 H Total Bilirubin 3.80 H AST 70 H ALT Alkaline Phosphatase 176 H Total Protein 5.0 L Albumin 2.9 L Triglycerides Arterial Blood Glucose Arterial Blood Ionized Calcium Digoxin Crossmatch 12/28/20 12/28/20 12/28/20 11:34 15:00 17:35 WBC RBC Hgb Hct MCV MCHC RDW Plt Count Lymph % (Auto) Roberts % (Auto) Lymph # (Auto) Roberts # (Auto) Seg Neutrophils % Seg Neuts % (Manual) Lymphocytes % (Manual) Monocytes % (Manual) Seg Neutrophils # Seg Neutrophils # Man Lymphocytes # (Manual) Monocytes # (Manual) PT INR ABG pH 7.461 H POC ABG pCO2 POC ABG pO2 72.2 L ABG pO2 ABG HCO3 ABG O2 Saturation ABG Base Excess ABG Hemoglobin 8.2 L ABG Oxyhemoglobin 93.6 L ABG Sodium 134.1 L ABG Potassium 3.2 L ABG Chloride ABG Glucose 135 H Oxyhemoglobin Sodium Potassium Chloride Carbon Dioxide BUN Creatinine Glucose POC Glucose 137 H 144 H Lactic Acid Calcium Phosphorus Magnesium Total Bilirubin AST ALT Alkaline Phosphatase Total Protein Albumin Triglycerides Arterial Blood Glucose 135 H Arterial Blood Ionized Calcium 4.4 L Digoxin Crossmatch 12/28/20 12/28/20 12/29/20 19:44 Unknown 00:21 WBC RBC Hgb Hct MCV MCHC RDW Plt Count Lymph % (Auto) Roberts % (Auto) Lymph # (Auto) Roberts # (Auto) Seg Neutrophils % Seg Neuts % (Manual) Lymphocytes % (Manual) Monocytes % (Manual) Seg Neutrophils # Seg Neutrophils # Man Lymphocytes # (Manual) Monocytes # (Manual) PT INR ABG pH 7.474 H POC ABG pCO2 POC ABG pO2 ABG pO2 ABG HCO3 ABG O2 Saturation ABG Base Excess ABG Hemoglobin 7.8 L ABG Oxyhemoglobin ABG Sodium 133.2 L ABG Potassium ABG Chloride ABG Glucose 139 H Oxyhemoglobin Sodium 135 L Potassium Chloride 96.6 L Carbon Dioxide BUN 47 H Creatinine 7.4 H Glucose 130 H POC Glucose 142 H Lactic Acid Calcium 8.3 L Phosphorus Magnesium Total Bilirubin AST ALT Alkaline Phosphatase Total Protein Albumin Triglycerides Arterial Blood Glucose 139 H Arterial Blood Ionized Calcium 4.3 L Digoxin Crossmatch 12/29/20 12/29/20 12/29/20 05:16 05:16 05:26 WBC RBC 2.53 L Hgb 7.7 L Hct 22.8 L MCV MCHC RDW 17.0 H Plt Count 130 L Lymph % (Auto) Roberts % (Auto) Lymph # (Auto) Roberts # (Auto) Seg Neutrophils % Seg Neuts % (Manual) 79.0 H Lymphocytes % (Manual) 9.0 L Monocytes % (Manual) Seg Neutrophils # Seg Neutrophils # Man Lymphocytes # (Manual) 0.6 L Monocytes # (Manual) PT INR ABG pH POC ABG pCO2 POC ABG pO2 ABG pO2 ABG HCO3 ABG O2 Saturation ABG Base Excess ABG Hemoglobin ABG Oxyhemoglobin ABG Sodium ABG Potassium ABG Chloride ABG Glucose Oxyhemoglobin Sodium Potassium 3.4 L Chloride 96.6 L Carbon Dioxide BUN 59 H Creatinine 8.3 H Glucose 127 H POC Glucose 141 H Lactic Acid Calcium 8.2 L Phosphorus Magnesium Total Bilirubin 3.00 H AST 88 H ALT Alkaline Phosphatase 188 H Total Protein 5.1 L Albumin 2.8 L Triglycerides Arterial Blood Glucose Arterial Blood Ionized Calcium Digoxin Crossmatch 12/29/20 12/29/20 12/29/20 11:33 17:29 23:22 WBC RBC Hgb Hct MCV MCHC RDW Plt Count Lymph % (Auto) Roberts % (Auto) Lymph # (Auto) Roberts # (Auto) Seg Neutrophils % Seg Neuts % (Manual) Lymphocytes % (Manual) Monocytes % (Manual) Seg Neutrophils # Seg Neutrophils # Man Lymphocytes # (Manual) Monocytes # (Manual) PT INR ABG pH POC ABG pCO2 POC ABG pO2 ABG pO2 ABG HCO3 ABG O2 Saturation ABG Base Excess ABG Hemoglobin ABG Oxyhemoglobin ABG Sodium ABG Potassium ABG Chloride ABG Glucose Oxyhemoglobin Sodium Potassium Chloride Carbon Dioxide BUN Creatinine Glucose POC Glucose 144 H 130 H 117 H Lactic Acid Calcium Phosphorus Magnesium Total Bilirubin AST ALT Alkaline Phosphatase Total Protein Albumin Triglycerides Arterial Blood Glucose Arterial Blood Ionized Calcium Digoxin Crossmatch 12/30/20 12/30/20 12/30/20 05:23 08:15 09:00 WBC RBC Hgb Hct MCV MCHC RDW Plt Count Lymph % (Auto) Roberts % (Auto) Lymph # (Auto) Roberts # (Auto) Seg Neutrophils % Seg Neuts % (Manual) Lymphocytes % (Manual) Monocytes % (Manual) Seg Neutrophils # Seg Neutrophils # Man Lymphocytes # (Manual) Monocytes # (Manual) PT INR ABG pH POC ABG pCO2 POC ABG pO2 ABG pO2 ABG HCO3 ABG O2 Saturation ABG Base Excess ABG Hemoglobin ABG Oxyhemoglobin ABG Sodium ABG Potassium ABG Chloride ABG Glucose Oxyhemoglobin Sodium 135 L Potassium Chloride 95.9 L Carbon Dioxide BUN 85 H Creatinine 10.6 H Glucose 128 H POC Glucose 135 H 127 H Lactic Acid Calcium 8.3 L Phosphorus Magnesium Total Bilirubin 2.40 H AST 85 H ALT Alkaline Phosphatase 216 H Total Protein 5.3 L Albumin 2.6 L Triglycerides 155 H Arterial Blood Glucose Arterial Blood Ionized Calcium Digoxin Crossmatch 12/30/20 12/30/20 12/30/20 09:00 11:53 15:49 WBC RBC 2.61 L Hgb 7.8 L Hct 23.7 L MCV MCHC RDW 17.3 H Plt Count Lymph % (Auto) Roberts % (Auto) Lymph # (Auto) Roberts # (Auto) Seg Neutrophils % Seg Neuts % (Manual) Lymphocytes % (Manual) Monocytes % (Manual) Seg Neutrophils # Seg Neutrophils # Man Lymphocytes # (Manual) Monocytes # (Manual) PT INR ABG pH POC ABG pCO2 POC ABG pO2 ABG pO2 ABG HCO3 ABG O2 Saturation ABG Base Excess ABG Hemoglobin ABG Oxyhemoglobin ABG Sodium ABG Potassium ABG Chloride ABG Glucose Oxyhemoglobin Sodium Potassium Chloride Carbon Dioxide BUN Creatinine Glucose POC Glucose 155 H 146 H Lactic Acid Calcium Phosphorus Magnesium Total Bilirubin AST ALT Alkaline Phosphatase Total Protein Albumin Triglycerides Arterial Blood Glucose Arterial Blood Ionized Calcium Digoxin Crossmatch 12/30/20 12/30/20 12/31/20 17:53 23:45 03:56 WBC RBC Hgb Hct MCV MCHC RDW Plt Count Lymph % (Auto) Roberts % (Auto) Lymph # (Auto) Roberts # (Auto) Seg Neutrophils % Seg Neuts % (Manual) Lymphocytes % (Manual) Monocytes % (Manual) Seg Neutrophils # Seg Neutrophils # Man Lymphocytes # (Manual) Monocytes # (Manual) PT INR ABG pH POC ABG pCO2 POC ABG pO2 49.4 L ABG pO2 ABG HCO3 ABG O2 Saturation ABG Base Excess ABG Hemoglobin 10.3 L ABG Oxyhemoglobin 84.2 L ABG Sodium 133.1 L ABG Potassium ABG Chloride ABG Glucose 173 H Oxyhemoglobin Sodium Potassium Chloride Carbon Dioxide BUN Creatinine Glucose POC Glucose 139 H 173 H Lactic Acid Calcium Phosphorus Magnesium Total Bilirubin AST ALT Alkaline Phosphatase Total Protein Albumin Triglycerides Arterial Blood Glucose 173 H Arterial Blood Ionized Calcium Digoxin Crossmatch 12/31/20 12/31/20 12/31/20 05:07 06:51 06:51 WBC 20.3 H RBC 3.32 L Hgb 9.8 L Hct 30.3 L D MCV MCHC RDW 17.3 H Plt Count Lymph % (Auto) Roberts % (Auto) Lymph # (Auto) Roberts # (Auto) Seg Neutrophils % Seg Neuts % (Manual) 87.0 H Lymphocytes % (Manual) 10.0 L Monocytes % (Manual) Seg Neutrophils # Seg Neutrophils # Man 17.7 H Lymphocytes # (Manual) Monocytes # (Manual) PT INR ABG pH POC ABG pCO2 POC ABG pO2 ABG pO2 ABG HCO3 ABG O2 Saturation ABG Base Excess ABG Hemoglobin ABG Oxyhemoglobin ABG Sodium ABG Potassium ABG Chloride ABG Glucose Oxyhemoglobin Sodium Potassium 5.2 H D Chloride Carbon Dioxide BUN 62 H Creatinine 8.4 H Glucose 116 H POC Glucose 120 H Lactic Acid Calcium Phosphorus Magnesium 1.60 L Total Bilirubin AST ALT Alkaline Phosphatase Total Protein Albumin Triglycerides Arterial Blood Glucose Arterial Blood Ionized Calcium Digoxin Crossmatch 12/31/20 12/31/20 12/31/20 09:38 12:19 12:22 WBC RBC Hgb Hct MCV MCHC RDW Plt Count Lymph % (Auto) Roberts % (Auto) Lymph # (Auto) Roberts # (Auto) Seg Neutrophils % Seg Neuts % (Manual) Lymphocytes % (Manual) Monocytes % (Manual) Seg Neutrophils # Seg Neutrophils # Man Lymphocytes # (Manual) Monocytes # (Manual) PT INR ABG pH POC ABG pCO2 POC ABG pO2 ABG pO2 354.0 H ABG HCO3 ABG O2 Saturation 99.6 H ABG Base Excess ABG Hemoglobin 9.1 L ABG Oxyhemoglobin ABG Sodium ABG Potassium ABG Chloride ABG Glucose Oxyhemoglobin Sodium Potassium 5.2 H Chloride Carbon Dioxide BUN Creatinine Glucose POC Glucose 132 H Lactic Acid Calcium Phosphorus Magnesium Total Bilirubin AST ALT Alkaline Phosphatase Total Protein Albumin Triglycerides Arterial Blood Glucose Arterial Blood Ionized Calcium Digoxin Crossmatch 12/31/20 01/01/21 01/01/21 23:23 03:03 05:04 WBC RBC Hgb Hct MCV MCHC RDW Plt Count Lymph % (Auto) Roberts % (Auto) Lymph # (Auto) Roberts # (Auto) Seg Neutrophils % Seg Neuts % (Manual) Lymphocytes % (Manual) Monocytes % (Manual) Seg Neutrophils # Seg Neutrophils # Man Lymphocytes # (Manual) Monocytes # (Manual) PT INR ABG pH POC ABG pCO2 POC ABG pO2 79.6 L ABG pO2 ABG HCO3 ABG O2 Saturation ABG Base Excess ABG Hemoglobin 9.2 L ABG Oxyhemoglobin ABG Sodium 131.6 L ABG Potassium 5.8 H ABG Chloride ABG Glucose 177 H Oxyhemoglobin Sodium Potassium Chloride Carbon Dioxide BUN Creatinine Glucose POC Glucose 174 H 167 H Lactic Acid Calcium Phosphorus Magnesium Total Bilirubin AST ALT Alkaline Phosphatase Total Protein Albumin Triglycerides Arterial Blood Glucose 177 H Arterial Blood Ionized Calcium Digoxin Crossmatch 01/01/21 01/01/21 01/01/21 07:31 07:31 11:31 WBC 26.1 H RBC 2.95 L Hgb 8.6 L Hct 27.1 L MCV MCHC RDW 18.2 H Plt Count Lymph % (Auto) Roberts % (Auto) Lymph # (Auto) Roberts # (Auto) Seg Neutrophils % Seg Neuts % (Manual) 96.0 H Lymphocytes % (Manual) 4.0 L Monocytes % (Manual) Seg Neutrophils # Seg Neutrophils # Man 25.1 H Lymphocytes # (Manual) 1.0 L Monocytes # (Manual) PT INR ABG pH POC ABG pCO2 POC ABG pO2 ABG pO2 ABG HCO3 ABG O2 Saturation ABG Base Excess ABG Hemoglobin ABG Oxyhemoglobin ABG Sodium ABG Potassium ABG Chloride ABG Glucose Oxyhemoglobin Sodium Potassium 6.0 H Chloride Carbon Dioxide 21 L BUN 89 H Creatinine 10.5 H Glucose 179 H POC Glucose Lactic Acid Calcium Phosphorus Magnesium Total Bilirubin AST ALT Alkaline Phosphatase Total Protein Albumin Triglycerides Arterial Blood Glucose Arterial Blood Ionized Calcium Digoxin Crossmatch See Detail 01/01/21 01/01/21 01/01/21 11:51 12:45 16:52 WBC RBC Hgb Hct MCV MCHC RDW Plt Count Lymph % (Auto) Roberts % (Auto) Lymph # (Auto) Roberts # (Auto) Seg Neutrophils % Seg Neuts % (Manual) Lymphocytes % (Manual) Monocytes % (Manual) Seg Neutrophils # Seg Neutrophils # Man Lymphocytes # (Manual) Monocytes # (Manual) PT 16.9 H INR 1.39 H ABG pH POC ABG pCO2 POC ABG pO2 ABG pO2 ABG HCO3 ABG O2 Saturation ABG Base Excess ABG Hemoglobin ABG Oxyhemoglobin ABG Sodium ABG Potassium ABG Chloride ABG Glucose Oxyhemoglobin Sodium Potassium Chloride Carbon Dioxide BUN Creatinine Glucose POC Glucose 157 H 177 H Lactic Acid Calcium Phosphorus Magnesium Total Bilirubin AST ALT Alkaline Phosphatase Total Protein Albumin Triglycerides Arterial Blood Glucose Arterial Blood Ionized Calcium Digoxin Crossmatch 01/01/21 01/01/21 01/01/21 17:58 17:58 20:12 WBC 26.9 H RBC 3.14 L Hgb 9.3 L Hct 29.6 L MCV MCHC RDW 17.5 H Plt Count Lymph % (Auto) Roberts % (Auto) Lymph # (Auto) Roberts # (Auto) Seg Neutrophils % Seg Neuts % (Manual) 84.0 H Lymphocytes % (Manual) 4.0 L Monocytes % (Manual) 12.0 H Seg Neutrophils # Seg Neutrophils # Man 22.6 H Lymphocytes # (Manual) 1.1 L Monocytes # (Manual) 3.2 H PT INR ABG pH POC ABG pCO2 POC ABG pO2 ABG pO2 ABG HCO3 ABG O2 Saturation ABG Base Excess ABG Hemoglobin ABG Oxyhemoglobin ABG Sodium ABG Potassium ABG Chloride ABG Glucose Oxyhemoglobin Sodium 136 L Potassium 6.2 H* Chloride Carbon Dioxide 21 L BUN 92 H Creatinine 10.8 H Glucose 171 H POC Glucose 288 H Lactic Acid Calcium Phosphorus Magnesium Total Bilirubin 2.10 H AST 223 H ALT 100 H Alkaline Phosphatase 206 H Total Protein 4.8 L Albumin 1.9 L Triglycerides Arterial Blood Glucose Arterial Blood Ionized Calcium Digoxin Crossmatch 01/02/21 01/02/21 01/02/21 00:12 00:45 03:05 WBC RBC Hgb Hct MCV MCHC RDW Plt Count Lymph % (Auto) Roberts % (Auto) Lymph # (Auto) Roberts # (Auto) Seg Neutrophils % Seg Neuts % (Manual) Lymphocytes % (Manual) Monocytes % (Manual) Seg Neutrophils # Seg Neutrophils # Man Lymphocytes # (Manual) Monocytes # (Manual) PT INR ABG pH POC ABG pCO2 POC ABG pO2 81.8 L ABG pO2 ABG HCO3 ABG O2 Saturation ABG Base Excess ABG Hemoglobin 8.0 L ABG Oxyhemoglobin ABG Sodium 129.8 L ABG Potassium 5.4 H ABG Chloride ABG Glucose 257 H Oxyhemoglobin Sodium 136 L Potassium 5.8 H Chloride 96.6 L Carbon Dioxide BUN 95 H Creatinine 11.2 H Glucose 238 H POC Glucose 223 H Lactic Acid Calcium Phosphorus Magnesium Total Bilirubin AST ALT Alkaline Phosphatase Total Protein Albumin Triglycerides Arterial Blood Glucose 257 H Arterial Blood Ionized Calcium 4.0 L Digoxin Crossmatch 01/02/21 01/02/21 01/02/21 06:25 08:00 08:00 WBC 17.5 H RBC 2.31 L Hgb 6.7 L Hct 22.1 L D MCV 96 H MCHC 30 L RDW 18.4 H Plt Count Lymph % (Auto) Roberts % (Auto) Lymph # (Auto) Roberts # (Auto) Seg Neutrophils % Seg Neuts % (Manual) Lymphocytes % (Manual) Monocytes % (Manual) Seg Neutrophils # Seg Neutrophils # Man Lymphocytes # (Manual) Monocytes # (Manual) PT INR ABG pH POC ABG pCO2 POC ABG pO2 ABG pO2 ABG HCO3 ABG O2 Saturation ABG Base Excess ABG Hemoglobin ABG Oxyhemoglobin ABG Sodium ABG Potassium ABG Chloride ABG Glucose Oxyhemoglobin Sodium 134 L Potassium 5.3 H Chloride 92.9 L Carbon Dioxide BUN 101 H Creatinine 10.9 H Glucose 560 H* POC Glucose 239 H Lactic Acid Calcium 7.6 L Phosphorus 6.50 H Magnesium Total Bilirubin AST ALT Alkaline Phosphatase Total Protein Albumin Triglycerides Arterial Blood Glucose Arterial Blood Ionized Calcium Digoxin Crossmatch 01/02/21 01/02/21 01/02/21 11:26 15:00 17:57 WBC RBC Hgb Hct MCV MCHC RDW Plt Count Lymph % (Auto) Roberts % (Auto) Lymph # (Auto) Roberts # (Auto) Seg Neutrophils % Seg Neuts % (Manual) Lymphocytes % (Manual) Monocytes % (Manual) Seg Neutrophils # Seg Neutrophils # Man Lymphocytes # (Manual) Monocytes # (Manual) PT INR ABG pH POC ABG pCO2 POC ABG pO2 ABG pO2 ABG HCO3 ABG O2 Saturation ABG Base Excess ABG Hemoglobin ABG Oxyhemoglobin ABG Sodium ABG Potassium ABG Chloride ABG Glucose Oxyhemoglobin Sodium Potassium Chloride Carbon Dioxide BUN Creatinine Glucose 241 H POC Glucose 205 H 272 H Lactic Acid Calcium Phosphorus Magnesium Total Bilirubin AST ALT Alkaline Phosphatase Total Protein Albumin Triglycerides Arterial Blood Glucose Arterial Blood Ionized Calcium Digoxin Crossmatch 01/02/21 01/02/21 01/03/21 23:25 23:43 03:45 WBC RBC Hgb Hct MCV MCHC RDW Plt Count Lymph % (Auto) Roberts % (Auto) Lymph # (Auto) Roberts # (Auto) Seg Neutrophils % Seg Neuts % (Manual) Lymphocytes % (Manual) Monocytes % (Manual) Seg Neutrophils # Seg Neutrophils # Man Lymphocytes # (Manual) Monocytes # (Manual) PT INR ABG pH POC ABG pCO2 48.3 H POC ABG pO2 134.4 H 79.7 L ABG pO2 ABG HCO3 ABG O2 Saturation ABG Base Excess ABG Hemoglobin 7.7 L 8.6 L ABG Oxyhemoglobin ABG Sodium 131.8 L 130.4 L ABG Potassium ABG Chloride 97.0 L ABG Glucose 218 H 238 H Oxyhemoglobin Sodium Potassium Chloride Carbon Dioxide BUN Creatinine Glucose POC Glucose 218 H Lactic Acid Calcium Phosphorus Magnesium Total Bilirubin AST ALT Alkaline Phosphatase Total Protein Albumin Triglycerides Arterial Blood Glucose 218 H 238 H Arterial Blood Ionized Calcium 4.1 L 4.0 L Digoxin Crossmatch 01/03/21 01/03/21 01/03/21 04:37 04:37 05:39 WBC 15.2 H RBC 2.38 L Hgb 7.3 L Hct 21.6 L MCV MCHC RDW 16.6 H Plt Count Lymph % (Auto) Roberts % (Auto) Lymph # (Auto) Roberts # (Auto) Seg Neutrophils % Seg Neuts % (Manual) Lymphocytes % (Manual) Monocytes % (Manual) Seg Neutrophils # Seg Neutrophils # Man Lymphocytes # (Manual) Monocytes # (Manual) PT INR ABG pH POC ABG pCO2 POC ABG pO2 ABG pO2 ABG HCO3 ABG O2 Saturation ABG Base Excess ABG Hemoglobin ABG Oxyhemoglobin ABG Sodium ABG Potassium ABG Chloride ABG Glucose Oxyhemoglobin Sodium 136 L Potassium Chloride 94.5 L Carbon Dioxide BUN 69 H Creatinine 8.0 H Glucose 219 H POC Glucose 222 H Lactic Acid Calcium 7.8 L Phosphorus 4.80 H D Magnesium Total Bilirubin AST ALT Alkaline Phosphatase Total Protein Albumin Triglycerides Arterial Blood Glucose Arterial Blood Ionized Calcium Digoxin Crossmatch 01/03/21 01/03/21 01/03/21 11:29 18:49 23:37 WBC RBC Hgb Hct MCV MCHC RDW Plt Count Lymph % (Auto) Roberts % (Auto) Lymph # (Auto) Roberts # (Auto) Seg Neutrophils % Seg Neuts % (Manual) Lymphocytes % (Manual) Monocytes % (Manual) Seg Neutrophils # Seg Neutrophils # Man Lymphocytes # (Manual) Monocytes # (Manual) PT INR ABG pH POC ABG pCO2 POC ABG pO2 ABG pO2 ABG HCO3 ABG O2 Saturation ABG Base Excess ABG Hemoglobin ABG Oxyhemoglobin ABG Sodium ABG Potassium ABG Chloride ABG Glucose Oxyhemoglobin Sodium Potassium Chloride Carbon Dioxide BUN Creatinine Glucose POC Glucose 232 H 129 H 140 H Lactic Acid Calcium Phosphorus Magnesium Total Bilirubin AST ALT Alkaline Phosphatase Total Protein Albumin Triglycerides Arterial Blood Glucose Arterial Blood Ionized Calcium Digoxin Crossmatch 01/04/21 01/04/21 01/04/21 03:22 04:38 04:38 WBC 11.1 H RBC 2.89 L Hgb 8.9 L Hct 26.2 L MCV MCHC RDW 16.1 H Plt Count Lymph % (Auto) Roberts % (Auto) Lymph # (Auto) Roberts # (Auto) Seg Neutrophils % Seg Neuts % (Manual) Lymphocytes % (Manual) Monocytes % (Manual) Seg Neutrophils # Seg Neutrophils # Man Lymphocytes # (Manual) Monocytes # (Manual) PT INR ABG pH POC ABG pCO2 POC ABG pO2 82.3 L ABG pO2 ABG HCO3 ABG O2 Saturation ABG Base Excess ABG Hemoglobin 8.9 L ABG Oxyhemoglobin ABG Sodium 130.5 L ABG Potassium ABG Chloride ABG Glucose 124 H Oxyhemoglobin Sodium Potassium Chloride 95.5 L Carbon Dioxide BUN 87 H Creatinine 9.7 H Glucose 118 H POC Glucose Lactic Acid Calcium 7.7 L Phosphorus Magnesium Total Bilirubin AST ALT Alkaline Phosphatase Total Protein Albumin Triglycerides Arterial Blood Glucose 124 H Arterial Blood Ionized Calcium 3.5 L Digoxin Crossmatch 01/04/21 01/04/21 01/04/21 05:39 12:04 18:04 WBC RBC Hgb Hct MCV MCHC RDW Plt Count Lymph % (Auto) Roberts % (Auto) Lymph # (Auto) Roberts # (Auto) Seg Neutrophils % Seg Neuts % (Manual) Lymphocytes % (Manual) Monocytes % (Manual) Seg Neutrophils # Seg Neutrophils # Man Lymphocytes # (Manual) Monocytes # (Manual) PT INR ABG pH POC ABG pCO2 POC ABG pO2 ABG pO2 ABG HCO3 ABG O2 Saturation ABG Base Excess ABG Hemoglobin ABG Oxyhemoglobin ABG Sodium ABG Potassium ABG Chloride ABG Glucose Oxyhemoglobin Sodium Potassium Chloride Carbon Dioxide BUN Creatinine Glucose POC Glucose 134 H 125 H 131 H Lactic Acid Calcium Phosphorus Magnesium Total Bilirubin AST ALT Alkaline Phosphatase Total Protein Albumin Triglycerides Arterial Blood Glucose Arterial Blood Ionized Calcium Digoxin Crossmatch 01/04/21 01/05/21 01/05/21 23:41 03:23 04:49 WBC RBC Hgb Hct MCV MCHC RDW Plt Count Lymph % (Auto) Roberts % (Auto) Lymph # (Auto) Roberts # (Auto) Seg Neutrophils % Seg Neuts % (Manual) Lymphocytes % (Manual) Monocytes % (Manual) Seg Neutrophils # Seg Neutrophils # Man Lymphocytes # (Manual) Monocytes # (Manual) PT INR ABG pH POC ABG pCO2 POC ABG pO2 62.8 L ABG pO2 ABG HCO3 ABG O2 Saturation ABG Base Excess ABG Hemoglobin 9.5 L ABG Oxyhemoglobin 92.0 L ABG Sodium 130.1 L ABG Potassium ABG Chloride ABG Glucose 148 H Oxyhemoglobin Sodium Potassium Chloride 96.9 L Carbon Dioxide BUN 57 H Creatinine 6.7 H Glucose 135 H POC Glucose 132 H Lactic Acid Calcium 8.0 L Phosphorus Magnesium Total Bilirubin AST ALT Alkaline Phosphatase Total Protein Albumin Triglycerides Arterial Blood Glucose 148 H Arterial Blood Ionized Calcium 4.1 L Digoxin Crossmatch 01/05/21 01/05/21 01/05/21 05:04 11:48 12:39 WBC RBC 3.03 L Hgb 9.3 L Hct 27.6 L MCV MCHC RDW 16.5 H Plt Count Lymph % (Auto) Roberts % (Auto) Lymph # (Auto) Roberts # (Auto) Seg Neutrophils % Seg Neuts % (Manual) Lymphocytes % (Manual) Monocytes % (Manual) Seg Neutrophils # Seg Neutrophils # Man Lymphocytes # (Manual) Monocytes # (Manual) PT INR ABG pH POC ABG pCO2 POC ABG pO2 ABG pO2 ABG HCO3 ABG O2 Saturation ABG Base Excess ABG Hemoglobin ABG Oxyhemoglobin ABG Sodium ABG Potassium ABG Chloride ABG Glucose Oxyhemoglobin Sodium Potassium Chloride Carbon Dioxide BUN Creatinine Glucose POC Glucose 147 H 162 H Lactic Acid Calcium Phosphorus Magnesium Total Bilirubin AST ALT Alkaline Phosphatase Total Protein Albumin Triglycerides Arterial Blood Glucose Arterial Blood Ionized Calcium Digoxin Crossmatch 01/05/21 01/05/21 01/06/21 17:50 23:32 04:15 WBC RBC Hgb Hct MCV MCHC RDW Plt Count Lymph % (Auto) Roberts % (Auto) Lymph # (Auto) Roberts # (Auto) Seg Neutrophils % Seg Neuts % (Manual) Lymphocytes % (Manual) Monocytes % (Manual) Seg Neutrophils # Seg Neutrophils # Man Lymphocytes # (Manual) Monocytes # (Manual) PT INR ABG pH POC ABG pCO2 POC ABG pO2 ABG pO2 191.0 H ABG HCO3 ABG O2 Saturation 99.2 H ABG Base Excess ABG Hemoglobin 9.0 L ABG Oxyhemoglobin ABG Sodium ABG Potassium ABG Chloride ABG Glucose Oxyhemoglobin Sodium Potassium Chloride Carbon Dioxide BUN Creatinine Glucose POC Glucose 155 H 115 H Lactic Acid Calcium Phosphorus Magnesium Total Bilirubin AST ALT Alkaline Phosphatase Total Protein Albumin Triglycerides Arterial Blood Glucose Arterial Blood Ionized Calcium Digoxin Crossmatch 01/06/21 01/06/21 01/06/21 04:45 05:56 07:03 WBC RBC 2.95 L Hgb 9.1 L Hct 26.8 L MCV MCHC RDW 16.8 H Plt Count Lymph % (Auto) Roberts % (Auto) Lymph # (Auto) Roberts # (Auto) Seg Neutrophils % Seg Neuts % (Manual) Lymphocytes % (Manual) Monocytes % (Manual) Seg Neutrophils # Seg Neutrophils # Man Lymphocytes # (Manual) Monocytes # (Manual) PT INR ABG pH POC ABG pCO2 POC ABG pO2 ABG pO2 ABG HCO3 ABG O2 Saturation ABG Base Excess ABG Hemoglobin ABG Oxyhemoglobin ABG Sodium ABG Potassium ABG Chloride ABG Glucose Oxyhemoglobin Sodium 135 L Potassium Chloride 95.9 L Carbon Dioxide BUN 82 H Creatinine 8.7 H Glucose 127 H POC Glucose 136 H Lactic Acid Calcium 8.3 L Phosphorus Magnesium Total Bilirubin AST ALT Alkaline Phosphatase Total Protein Albumin Triglycerides Arterial Blood Glucose Arterial Blood Ionized Calcium Digoxin Crossmatch 01/06/21 01/06/21 01/06/21 07:10 11:04 13:38 WBC RBC Hgb Hct MCV MCHC RDW Plt Count Lymph % (Auto) Roberts % (Auto) Lymph # (Auto) Roberts # (Auto) Seg Neutrophils % Seg Neuts % (Manual) Lymphocytes % (Manual) Monocytes % (Manual) Seg Neutrophils # Seg Neutrophils # Man Lymphocytes # (Manual) Monocytes # (Manual) PT INR ABG pH POC ABG pCO2 POC ABG pO2 ABG pO2 ABG HCO3 ABG O2 Saturation ABG Base Excess ABG Hemoglobin ABG Oxyhemoglobin ABG Sodium ABG Potassium ABG Chloride ABG Glucose Oxyhemoglobin Sodium Potassium Chloride Carbon Dioxide BUN Creatinine Glucose POC Glucose 178 H 155 H Lactic Acid Calcium Phosphorus Magnesium Total Bilirubin AST ALT Alkaline Phosphatase Total Protein Albumin Triglycerides Arterial Blood Glucose Arterial Blood Ionized Calcium Digoxin Crossmatch See Detail 01/06/21 01/06/21 01/07/21 17:35 22:21 03:07 WBC RBC Hgb Hct MCV MCHC RDW Plt Count Lymph % (Auto) Roberts % (Auto) Lymph # (Auto) Roberts # (Auto) Seg Neutrophils % Seg Neuts % (Manual) Lymphocytes % (Manual) Monocytes % (Manual) Seg Neutrophils # Seg Neutrophils # Man Lymphocytes # (Manual) Monocytes # (Manual) PT INR ABG pH POC ABG pCO2 POC ABG pO2 ABG pO2 ABG HCO3 ABG O2 Saturation ABG Base Excess ABG Hemoglobin 11.9 L ABG Oxyhemoglobin ABG Sodium 135.6 L ABG Potassium ABG Chloride ABG Glucose 181 H Oxyhemoglobin Sodium Potassium Chloride Carbon Dioxide BUN Creatinine Glucose POC Glucose 138 H 202 H Lactic Acid Calcium Phosphorus Magnesium Total Bilirubin AST ALT Alkaline Phosphatase Total Protein Albumin Triglycerides Arterial Blood Glucose 181 H Arterial Blood Ionized Calcium 4.3 L Digoxin Crossmatch 01/07/21 01/07/21 01/07/21 04:50 05:21 08:37 WBC 12.4 H RBC Hgb 11.1 L Hct 33.3 L D MCV MCHC RDW 17.0 H Plt Count Lymph % (Auto) 3.2 L Roberts % (Auto) 9.4 H Lymph # (Auto) 0.4 L Roberts # (Auto) 1.2 H Seg Neutrophils % 86.6 H Seg Neuts % (Manual) Lymphocytes % (Manual) Monocytes % (Manual) Seg Neutrophils # 10.7 H Seg Neutrophils # Man Lymphocytes # (Manual) Monocytes # (Manual) PT INR ABG pH POC ABG pCO2 POC ABG pO2 ABG pO2 ABG HCO3 ABG O2 Saturation ABG Base Excess ABG Hemoglobin ABG Oxyhemoglobin ABG Sodium ABG Potassium ABG Chloride ABG Glucose Oxyhemoglobin Sodium Potassium Chloride Carbon Dioxide BUN 60 H Creatinine 6.3 H Glucose 154 H POC Glucose 177 H Lactic Acid Calcium 8.3 L Phosphorus Magnesium Total Bilirubin AST ALT Alkaline Phosphatase Total Protein Albumin Triglycerides Arterial Blood Glucose Arterial Blood Ionized Calcium Digoxin Crossmatch 01/07/21 01/07/21 01/07/21 11:21 12:19 17:11 WBC RBC Hgb Hct MCV MCHC RDW Plt Count Lymph % (Auto) Roberts % (Auto) Lymph # (Auto) Roberts # (Auto) Seg Neutrophils % Seg Neuts % (Manual) Lymphocytes % (Manual) Monocytes % (Manual) Seg Neutrophils # Seg Neutrophils # Man Lymphocytes # (Manual) Monocytes # (Manual) PT INR ABG pH POC ABG pCO2 POC ABG pO2 ABG pO2 ABG HCO3 ABG O2 Saturation ABG Base Excess ABG Hemoglobin ABG Oxyhemoglobin ABG Sodium ABG Potassium ABG Chloride ABG Glucose Oxyhemoglobin Sodium Potassium Chloride Carbon Dioxide BUN Creatinine Glucose POC Glucose 144 H 137 H 119 H Lactic Acid Calcium Phosphorus Magnesium Total Bilirubin AST ALT Alkaline Phosphatase Total Protein Albumin Triglycerides Arterial Blood Glucose Arterial Blood Ionized Calcium Digoxin Crossmatch 01/07/21 01/07/21 01/08/21 17:14 23:39 04:34 WBC RBC Hgb Hct MCV MCHC RDW Plt Count Lymph % (Auto) Roberts % (Auto) Lymph # (Auto) Roberts # (Auto) Seg Neutrophils % Seg Neuts % (Manual) Lymphocytes % (Manual) Monocytes % (Manual) Seg Neutrophils # Seg Neutrophils # Man Lymphocytes # (Manual) Monocytes # (Manual) PT INR ABG pH 7.345 L POC ABG pCO2 POC ABG pO2 ABG pO2 67.4 L ABG HCO3 ABG O2 Saturation 94.3 L ABG Base Excess -3.9 L ABG Hemoglobin 8.9 L ABG Oxyhemoglobin ABG Sodium ABG Potassium ABG Chloride ABG Glucose Oxyhemoglobin 92.3 L Sodium Potassium Chloride Carbon Dioxide 20 L BUN 93 H Creatinine 8.8 H Glucose 120 H POC Glucose 129 H Lactic Acid Calcium Phosphorus Magnesium Total Bilirubin AST ALT Alkaline Phosphatase 133 H Total Protein 5.4 L Albumin 1.9 L Triglycerides Arterial Blood Glucose Arterial Blood Ionized Calcium Digoxin Crossmatch 05/16/21 05/16/21 05/16/21 05:26 11:38 17:19 WBC RBC Hgb Hct MCV MCHC RDW Plt Count Lymph % (Auto) Roberts % (Auto) Lymph # (Auto) Roberts # (Auto) Seg Neutrophils % Seg Neuts % (Manual) Lymphocytes % (Manual) Monocytes % (Manual) Seg Neutrophils # Seg Neutrophils # Man Lymphocytes # (Manual) Monocytes # (Manual) PT INR ABG pH POC ABG pCO2 POC ABG pO2 ABG pO2 ABG HCO3 ABG O2 Saturation ABG Base Excess ABG Hemoglobin ABG Oxyhemoglobin ABG Sodium ABG Potassium ABG Chloride ABG Glucose Oxyhemoglobin Sodium Potassium Chloride Carbon Dioxide BUN Creatinine Glucose POC Glucose 125 H 146 H 136 H Lactic Acid Calcium Phosphorus Magnesium Total Bilirubin AST ALT Alkaline Phosphatase Total Protein Albumin Triglycerides Arterial Blood Glucose Arterial Blood Ionized Calcium Digoxin Crossmatch 01/08/21 01/09/21 01/09/21 23:52 05:13 05:21 WBC RBC Hgb Hct MCV MCHC RDW Plt Count Lymph % (Auto) Roberts % (Auto) Lymph # (Auto) Roberts # (Auto) Seg Neutrophils % Seg Neuts % (Manual) Lymphocytes % (Manual) Monocytes % (Manual) Seg Neutrophils # Seg Neutrophils # Man Lymphocytes # (Manual) Monocytes # (Manual) PT INR ABG pH POC ABG pCO2 POC ABG pO2 ABG pO2 ABG HCO3 ABG O2 Saturation ABG Base Excess ABG Hemoglobin ABG Oxyhemoglobin ABG Sodium ABG Potassium ABG Chloride ABG Glucose Oxyhemoglobin Sodium Potassium Chloride Carbon Dioxide 16 L BUN 123 H Creatinine 10.8 H Glucose 145 H POC Glucose 143 H 144 H Lactic Acid Calcium Phosphorus 5.00 H D Magnesium 2.40 H Total Bilirubin AST ALT Alkaline Phosphatase Total Protein Albumin Triglycerides Arterial Blood Glucose Arterial Blood Ionized Calcium Digoxin Crossmatch 01/09/21 01/09/21 01/09/21 12:08 17:20 23:56 WBC RBC Hgb Hct MCV MCHC RDW Plt Count Lymph % (Auto) Roberts % (Auto) Lymph # (Auto) Roberts # (Auto) Seg Neutrophils % Seg Neuts % (Manual) Lymphocytes % (Manual) Monocytes % (Manual) Seg Neutrophils # Seg Neutrophils # Man Lymphocytes # (Manual) Monocytes # (Manual) PT INR ABG pH POC ABG pCO2 POC ABG pO2 ABG pO2 ABG HCO3 ABG O2 Saturation ABG Base Excess ABG Hemoglobin ABG Oxyhemoglobin ABG Sodium ABG Potassium ABG Chloride ABG Glucose Oxyhemoglobin Sodium Potassium Chloride Carbon Dioxide BUN Creatinine Glucose POC Glucose 153 H 160 H 158 H Lactic Acid Calcium Phosphorus Magnesium Total Bilirubin AST ALT Alkaline Phosphatase Total Protein Albumin Triglycerides Arterial Blood Glucose Arterial Blood Ionized Calcium Digoxin Crossmatch 01/10/21 01/10/21 01/10/21 04:52 05:44 07:41 WBC RBC Hgb Hct MCV MCHC RDW Plt Count Lymph % (Auto) Roberts % (Auto) Lymph # (Auto) Roberts # (Auto) Seg Neutrophils % Seg Neuts % (Manual) Lymphocytes % (Manual) Monocytes % (Manual) Seg Neutrophils # Seg Neutrophils # Man Lymphocytes # (Manual) Monocytes # (Manual) PT INR ABG pH POC ABG pCO2 POC ABG pO2 ABG pO2 ABG HCO3 ABG O2 Saturation ABG Base Excess ABG Hemoglobin ABG Oxyhemoglobin ABG Sodium ABG Potassium ABG Chloride ABG Glucose Oxyhemoglobin Sodium 135 L Potassium 3.5 L D Chloride 95.0 L Carbon Dioxide 21 L BUN 93 H Creatinine 8.3 H Glucose 127 H POC Glucose 135 H 157 H Lactic Acid Calcium Phosphorus Magnesium Total Bilirubin AST ALT Alkaline Phosphatase Total Protein Albumin Triglycerides Arterial Blood Glucose Arterial Blood Ionized Calcium Digoxin Crossmatch 01/10/21 01/10/21 01/10/21 09:26 12:03 17:44 WBC 18.2 H RBC 3.14 L Hgb 9.7 L Hct 28.2 L MCV MCHC RDW 16.5 H Plt Count Lymph % (Auto) Roberts % (Auto) Lymph # (Auto) Roberts # (Auto) Seg Neutrophils % Seg Neuts % (Manual) 95.0 H Lymphocytes % (Manual) 3.0 L Monocytes % (Manual) Seg Neutrophils # Seg Neutrophils # Man 17.3 H Lymphocytes # (Manual) 0.5 L Monocytes # (Manual) PT INR ABG pH POC ABG pCO2 POC ABG pO2 ABG pO2 ABG HCO3 ABG O2 Saturation ABG Base Excess ABG Hemoglobin ABG Oxyhemoglobin ABG Sodium ABG Potassium ABG Chloride ABG Glucose Oxyhemoglobin Sodium Potassium Chloride Carbon Dioxide BUN Creatinine Glucose POC Glucose 163 H 171 H Lactic Acid Calcium Phosphorus Magnesium Total Bilirubin AST ALT Alkaline Phosphatase Total Protein Albumin Triglycerides Arterial Blood Glucose Arterial Blood Ionized Calcium Digoxin Crossmatch 01/10/21 01/11/21 01/11/21 23:50 05:18 05:18 WBC RBC Hgb Hct MCV MCHC RDW Plt Count Lymph % (Auto) Roberts % (Auto) Lymph # (Auto) Roberts # (Auto) Seg Neutrophils % Seg Neuts % (Manual) Lymphocytes % (Manual) Monocytes % (Manual) Seg Neutrophils # Seg Neutrophils # Man Lymphocytes # (Manual) Monocytes # (Manual) PT INR ABG pH POC ABG pCO2 POC ABG pO2 ABG pO2 ABG HCO3 ABG O2 Saturation ABG Base Excess ABG Hemoglobin ABG Oxyhemoglobin ABG Sodium ABG Potassium ABG Chloride ABG Glucose Oxyhemoglobin Sodium 136 L Potassium Chloride 94.6 L Carbon Dioxide 19 L BUN 145 H Creatinine 10.6 H Glucose 152 H POC Glucose 151 H Lactic Acid Calcium Phosphorus 6.00 H D Magnesium Total Bilirubin AST ALT Alkaline Phosphatase Total Protein Albumin Triglycerides Arterial Blood Glucose Arterial Blood Ionized Calcium Digoxin 0.8 L Crossmatch 01/11/21 01/11/21 01/11/21 05:18 05:19 11:28 WBC 17.4 H RBC 3.34 L Hgb 10.2 L Hct 29.7 L MCV MCHC RDW 15.9 H Plt Count Lymph % (Auto) Roberts % (Auto) Lymph # (Auto) Roberts # (Auto) Seg Neutrophils % Seg Neuts % (Manual) Lymphocytes % (Manual) Monocytes % (Manual) Seg Neutrophils # Seg Neutrophils # Man Lymphocytes # (Manual) Monocytes # (Manual) PT INR ABG pH POC ABG pCO2 POC ABG pO2 ABG pO2 ABG HCO3 ABG O2 Saturation ABG Base Excess ABG Hemoglobin ABG Oxyhemoglobin ABG Sodium ABG Potassium ABG Chloride ABG Glucose Oxyhemoglobin Sodium Potassium Chloride Carbon Dioxide BUN Creatinine Glucose POC Glucose 149 H 178 H Lactic Acid Calcium Phosphorus Magnesium Total Bilirubin AST ALT Alkaline Phosphatase Total Protein Albumin Triglycerides Arterial Blood Glucose Arterial Blood Ionized Calcium Digoxin Crossmatch 01/11/21 01/11/21 01/12/21 17:31 23:14 05:18 WBC RBC Hgb Hct MCV MCHC RDW Plt Count Lymph % (Auto) Roberts % (Auto) Lymph # (Auto) Roberts # (Auto) Seg Neutrophils % Seg Neuts % (Manual) Lymphocytes % (Manual) Monocytes % (Manual) Seg Neutrophils # Seg Neutrophils # Man Lymphocytes # (Manual) Monocytes # (Manual) PT INR ABG pH POC ABG pCO2 POC ABG pO2 ABG pO2 ABG HCO3 ABG O2 Saturation ABG Base Excess ABG Hemoglobin ABG Oxyhemoglobin ABG Sodium ABG Potassium ABG Chloride ABG Glucose Oxyhemoglobin Sodium Potassium Chloride Carbon Dioxide BUN Creatinine Glucose POC Glucose 158 H 145 H 148 H Lactic Acid Calcium Phosphorus Magnesium Total Bilirubin AST ALT Alkaline Phosphatase Total Protein Albumin Triglycerides Arterial Blood Glucose Arterial Blood Ionized Calcium Digoxin Crossmatch 01/12/21 01/12/21 01/12/21 06:50 10:45 13:34 WBC RBC Hgb Hct MCV MCHC RDW Plt Count Lymph % (Auto) Roberts % (Auto) Lymph # (Auto) Roberts # (Auto) Seg Neutrophils % Seg Neuts % (Manual) Lymphocytes % (Manual) Monocytes % (Manual) Seg Neutrophils # Seg Neutrophils # Man Lymphocytes # (Manual) Monocytes # (Manual) PT INR ABG pH POC ABG pCO2 POC ABG pO2 ABG pO2 ABG HCO3 ABG O2 Saturation ABG Base Excess ABG Hemoglobin ABG Oxyhemoglobin ABG Sodium ABG Potassium ABG Chloride ABG Glucose Oxyhemoglobin Sodium Potassium 2.9 L* D Chloride 94.8 L Carbon Dioxide BUN 102 H Creatinine 8.3 H Glucose 139 H POC Glucose 151 H 134 H Lactic Acid Calcium 8.1 L Phosphorus 5.00 H Magnesium Total Bilirubin AST ALT Alkaline Phosphatase Total Protein Albumin Triglycerides Arterial Blood Glucose Arterial Blood Ionized Calcium Digoxin Crossmatch 01/12/21 01/12/21 01/13/21 16:59 23:06 03:45 WBC RBC Hgb Hct MCV MCHC RDW Plt Count Lymph % (Auto) Roberts % (Auto) Lymph # (Auto) Roberts # (Auto) Seg Neutrophils % Seg Neuts % (Manual) Lymphocytes % (Manual) Monocytes % (Manual) Seg Neutrophils # Seg Neutrophils # Man Lymphocytes # (Manual) Monocytes # (Manual) PT INR ABG pH POC ABG pCO2 POC ABG pO2 ABG pO2 ABG HCO3 ABG O2 Saturation ABG Base Excess ABG Hemoglobin ABG Oxyhemoglobin ABG Sodium ABG Potassium ABG Chloride ABG Glucose Oxyhemoglobin Sodium 136 L Potassium 3.4 L Chloride 92.6 L Carbon Dioxide BUN 134 H Creatinine 10.4 H Glucose 126 H POC Glucose 108 H 135 H Lactic Acid Calcium 8.3 L Phosphorus 5.60 H Magnesium 1.50 L Total Bilirubin AST ALT Alkaline Phosphatase Total Protein Albumin Triglycerides Arterial Blood Glucose Arterial Blood Ionized Calcium Digoxin Crossmatch 01/13/21 01/13/21 01/13/21 03:45 05:55 11:59 WBC 17.6 H RBC 3.33 L Hgb 10.2 L Hct 29.5 L MCV MCHC 35 H RDW 15.5 H Plt Count Lymph % (Auto) 4.4 L Roberts % (Auto) 10.3 H Lymph # (Auto) 0.8 L Roberts # (Auto) 1.8 H Seg Neutrophils % 84.2 H Seg Neuts % (Manual) Lymphocytes % (Manual) Monocytes % (Manual) Seg Neutrophils # 14.8 H Seg Neutrophils # Man Lymphocytes # (Manual) Monocytes # (Manual) PT INR ABG pH POC ABG pCO2 POC ABG pO2 ABG pO2 ABG HCO3 ABG O2 Saturation ABG Base Excess ABG Hemoglobin ABG Oxyhemoglobin ABG Sodium ABG Potassium ABG Chloride ABG Glucose Oxyhemoglobin Sodium Potassium Chloride Carbon Dioxide BUN Creatinine Glucose POC Glucose 134 H 141 H Lactic Acid Calcium Phosphorus Magnesium Total Bilirubin AST ALT Alkaline Phosphatase Total Protein Albumin Triglycerides Arterial Blood Glucose Arterial Blood Ionized Calcium Digoxin Crossmatch 01/13/21 01/14/21 01/14/21 23:09 05:39 05:57 WBC RBC Hgb Hct MCV MCHC RDW Plt Count Lymph % (Auto) Roberts % (Auto) Lymph # (Auto) Roberts # (Auto) Seg Neutrophils % Seg Neuts % (Manual) Lymphocytes % (Manual) Monocytes % (Manual) Seg Neutrophils # Seg Neutrophils # Man Lymphocytes # (Manual) Monocytes # (Manual) PT INR ABG pH POC ABG pCO2 POC ABG pO2 ABG pO2 ABG HCO3 ABG O2 Saturation ABG Base Excess ABG Hemoglobin ABG Oxyhemoglobin ABG Sodium ABG Potassium ABG Chloride ABG Glucose Oxyhemoglobin Sodium Potassium Chloride 97.6 L Carbon Dioxide BUN 81 H Creatinine 7.6 H Glucose 193 H POC Glucose 106 H 190 H Lactic Acid Calcium 8.2 L Phosphorus 4.60 H Magnesium Total Bilirubin AST ALT Alkaline Phosphatase Total Protein Albumin Triglycerides Arterial Blood Glucose Arterial Blood Ionized Calcium Digoxin Crossmatch 01/14/21 01/14/21 01/14/21 10:00 16:56 16:59 WBC 17.0 H RBC 3.10 L Hgb 9.6 L Hct 27.4 L MCV MCHC 35 H RDW 15.6 H Plt Count Lymph % (Auto) Roberts % (Auto) Lymph # (Auto) Roberts # (Auto) Seg Neutrophils % Seg Neuts % (Manual) Lymphocytes % (Manual) Monocytes % (Manual) Seg Neutrophils # Seg Neutrophils # Man Lymphocytes # (Manual) Monocytes # (Manual) PT INR ABG pH POC ABG pCO2 POC ABG pO2 ABG pO2 ABG HCO3 ABG O2 Saturation ABG Base Excess ABG Hemoglobin ABG Oxyhemoglobin ABG Sodium ABG Potassium ABG Chloride ABG Glucose Oxyhemoglobin Sodium Potassium Chloride Carbon Dioxide BUN Creatinine Glucose POC Glucose 37 L 34 L Lactic Acid Calcium Phosphorus Magnesium Total Bilirubin AST ALT Alkaline Phosphatase Total Protein Albumin Triglycerides Arterial Blood Glucose Arterial Blood Ionized Calcium Digoxin Crossmatch 01/14/21 01/14/21 01/14/21 17:02 18:34 23:17 WBC RBC Hgb Hct MCV MCHC RDW Plt Count Lymph % (Auto) Roberts % (Auto) Lymph # (Auto) Roberts # (Auto) Seg Neutrophils % Seg Neuts % (Manual) Lymphocytes % (Manual) Monocytes % (Manual) Seg Neutrophils # Seg Neutrophils # Man Lymphocytes # (Manual) Monocytes # (Manual) PT INR ABG pH POC ABG pCO2 POC ABG pO2 ABG pO2 ABG HCO3 ABG O2 Saturation ABG Base Excess ABG Hemoglobin ABG Oxyhemoglobin ABG Sodium ABG Potassium ABG Chloride ABG Glucose Oxyhemoglobin Sodium Potassium Chloride Carbon Dioxide BUN Creatinine Glucose POC Glucose 35 L 143 H 53 L Lactic Acid Calcium Phosphorus Magnesium Total Bilirubin AST ALT Alkaline Phosphatase Total Protein Albumin Triglycerides Arterial Blood Glucose Arterial Blood Ionized Calcium Digoxin Crossmatch 01/15/21 01/15/21 01/15/21 00:34 04:00 04:00 WBC 15.9 H RBC 3.02 L Hgb 9.3 L Hct 27.3 L MCV MCHC RDW 15.6 H Plt Count Lymph % (Auto) Roberts % (Auto) Lymph # (Auto) Roberts # (Auto) Seg Neutrophils % Seg Neuts % (Manual) Lymphocytes % (Manual) Monocytes % (Manual) Seg Neutrophils # Seg Neutrophils # Man Lymphocytes # (Manual) Monocytes # (Manual) PT INR ABG pH POC ABG pCO2 POC ABG pO2 ABG pO2 ABG HCO3 ABG O2 Saturation ABG Base Excess ABG Hemoglobin ABG Oxyhemoglobin ABG Sodium ABG Potassium ABG Chloride ABG Glucose Oxyhemoglobin Sodium 136 L Potassium Chloride 94.3 L Carbon Dioxide BUN 117 H Creatinine 9.9 H Glucose 217 H POC Glucose 181 H Lactic Acid Calcium 8.3 L Phosphorus Magnesium Total Bilirubin AST ALT Alkaline Phosphatase Total Protein Albumin Triglycerides Arterial Blood Glucose Arterial Blood Ionized Calcium Digoxin Crossmatch 01/15/21 01/15/21 01/15/21 05:29 11:51 23:13 WBC RBC Hgb Hct MCV MCHC RDW Plt Count Lymph % (Auto) Roberts % (Auto) Lymph # (Auto) Roberts # (Auto) Seg Neutrophils % Seg Neuts % (Manual) Lymphocytes % (Manual) Monocytes % (Manual) Seg Neutrophils # Seg Neutrophils # Man Lymphocytes # (Manual) Monocytes # (Manual) PT INR ABG pH POC ABG pCO2 POC ABG pO2 ABG pO2 ABG HCO3 ABG O2 Saturation ABG Base Excess ABG Hemoglobin ABG Oxyhemoglobin ABG Sodium ABG Potassium ABG Chloride ABG Glucose Oxyhemoglobin Sodium Potassium Chloride Carbon Dioxide BUN Creatinine Glucose POC Glucose 221 H 62 L 154 H Lactic Acid Calcium Phosphorus Magnesium Total Bilirubin AST ALT Alkaline Phosphatase Total Protein Albumin Triglycerides Arterial Blood Glucose Arterial Blood Ionized Calcium Digoxin Crossmatch 01/16/21 01/16/21 01/16/21 05:04 06:44 06:44 WBC 14.8 H RBC 2.76 L Hgb 8.2 L Hct 24.8 L MCV MCHC RDW 15.6 H Plt Count Lymph % (Auto) Roberts % (Auto) Lymph # (Auto) Roberts # (Auto) Seg Neutrophils % Seg Neuts % (Manual) Lymphocytes % (Manual) Monocytes % (Manual) Seg Neutrophils # Seg Neutrophils # Man Lymphocytes # (Manual) Monocytes # (Manual) PT INR ABG pH POC ABG pCO2 POC ABG pO2 ABG pO2 ABG HCO3 ABG O2 Saturation ABG Base Excess ABG Hemoglobin ABG Oxyhemoglobin ABG Sodium ABG Potassium ABG Chloride ABG Glucose Oxyhemoglobin Sodium 133 L Potassium Chloride 92.3 L Carbon Dioxide 20 L BUN 160 H Creatinine 12.1 H Glucose 177 H POC Glucose 168 H Lactic Acid Calcium 8.1 L Phosphorus 5.50 H Magnesium 2.50 H Total Bilirubin AST ALT Alkaline Phosphatase Total Protein Albumin Triglycerides Arterial Blood Glucose Arterial Blood Ionized Calcium Digoxin Crossmatch 01/16/21 01/17/21 01/17/21 23:20 05:14 05:14 WBC 12.7 H RBC 2.75 L Hgb 8.5 L Hct 24.6 L MCV MCHC 35 H RDW 15.4 H Plt Count Lymph % (Auto) Roberts % (Auto) Lymph # (Auto) Roberts # (Auto) Seg Neutrophils % Seg Neuts % (Manual) Lymphocytes % (Manual) Monocytes % (Manual) Seg Neutrophils # Seg Neutrophils # Man Lymphocytes # (Manual) Monocytes # (Manual) PT INR ABG pH POC ABG pCO2 POC ABG pO2 ABG pO2 ABG HCO3 ABG O2 Saturation ABG Base Excess ABG Hemoglobin ABG Oxyhemoglobin ABG Sodium ABG Potassium ABG Chloride ABG Glucose Oxyhemoglobin Sodium Potassium Chloride 97.9 L Carbon Dioxide BUN 84 H Creatinine 7.8 H Glucose 176 H POC Glucose 153 H Lactic Acid Calcium 8.0 L Phosphorus Magnesium Total Bilirubin AST ALT Alkaline Phosphatase Total Protein Albumin Triglycerides Arterial Blood Glucose Arterial Blood Ionized Calcium Digoxin Crossmatch 01/17/21 01/17/21 01/18/21 05:33 11:58 00:07 WBC RBC Hgb Hct MCV MCHC RDW Plt Count Lymph % (Auto) Roberts % (Auto) Lymph # (Auto) Roberts # (Auto) Seg Neutrophils % Seg Neuts % (Manual) Lymphocytes % (Manual) Monocytes % (Manual) Seg Neutrophils # Seg Neutrophils # Man Lymphocytes # (Manual) Monocytes # (Manual) PT INR ABG pH POC ABG pCO2 POC ABG pO2 ABG pO2 ABG HCO3 ABG O2 Saturation ABG Base Excess ABG Hemoglobin ABG Oxyhemoglobin ABG Sodium ABG Potassium ABG Chloride ABG Glucose Oxyhemoglobin Sodium Potassium Chloride Carbon Dioxide BUN Creatinine Glucose POC Glucose 162 H 64 L 146 H Lactic Acid Calcium Phosphorus Magnesium Total Bilirubin AST ALT Alkaline Phosphatase Total Protein Albumin Triglycerides Arterial Blood Glucose Arterial Blood Ionized Calcium Digoxin Crossmatch 01/18/21 01/18/21 01/18/21 04:19 04:19 06:15 WBC 15.6 H RBC 3.00 L Hgb 9.2 L Hct 26.8 L MCV MCHC 35 H RDW 15.6 H Plt Count Lymph % (Auto) Roberts % (Auto) Lymph # (Auto) Roberts # (Auto) Seg Neutrophils % Seg Neuts % (Manual) Lymphocytes % (Manual) Monocytes % (Manual) Seg Neutrophils # Seg Neutrophils # Man Lymphocytes # (Manual) Monocytes # (Manual) PT INR ABG pH POC ABG pCO2 POC ABG pO2 ABG pO2 ABG HCO3 ABG O2 Saturation ABG Base Excess ABG Hemoglobin ABG Oxyhemoglobin ABG Sodium ABG Potassium ABG Chloride ABG Glucose Oxyhemoglobin Sodium Potassium Chloride 96.2 L Carbon Dioxide BUN 117 H Creatinine 10.0 H Glucose 165 H POC Glucose 189 H Lactic Acid Calcium Phosphorus 4.70 H D Magnesium Total Bilirubin AST ALT Alkaline Phosphatase Total Protein Albumin Triglycerides Arterial Blood Glucose Arterial Blood Ionized Calcium Digoxin Crossmatch 01/18/21 01/18/21 01/18/21 11:53 13:44 15:08 WBC RBC Hgb Hct MCV MCHC RDW Plt Count Lymph % (Auto) Roberts % (Auto) Lymph # (Auto) Roberts # (Auto) Seg Neutrophils % Seg Neuts % (Manual) Lymphocytes % (Manual) Monocytes % (Manual) Seg Neutrophils # Seg Neutrophils # Man Lymphocytes # (Manual) Monocytes # (Manual) PT INR ABG pH POC ABG pCO2 POC ABG pO2 ABG pO2 ABG HCO3 ABG O2 Saturation ABG Base Excess ABG Hemoglobin ABG Oxyhemoglobin ABG Sodium ABG Potassium ABG Chloride ABG Glucose Oxyhemoglobin Sodium Potassium Chloride Carbon Dioxide BUN Creatinine Glucose POC Glucose 69 L 50 L 56 L Lactic Acid Calcium Phosphorus Magnesium Total Bilirubin AST ALT Alkaline Phosphatase Total Protein Albumin Triglycerides Arterial Blood Glucose Arterial Blood Ionized Calcium Digoxin Crossmatch 01/18/21 01/19/21 01/19/21 17:50 04:55 08:56 WBC 12.7 H RBC 2.89 L Hgb 8.7 L Hct 25.6 L MCV MCHC RDW 15.5 H Plt Count Lymph % (Auto) Roberts % (Auto) Lymph # (Auto) Roberts # (Auto) Seg Neutrophils % Seg Neuts % (Manual) Lymphocytes % (Manual) Monocytes % (Manual) Seg Neutrophils # Seg Neutrophils # Man Lymphocytes # (Manual) Monocytes # (Manual) PT INR ABG pH POC ABG pCO2 POC ABG pO2 ABG pO2 ABG HCO3 ABG O2 Saturation ABG Base Excess ABG Hemoglobin ABG Oxyhemoglobin ABG Sodium ABG Potassium ABG Chloride ABG Glucose Oxyhemoglobin Sodium Potassium Chloride Carbon Dioxide BUN Creatinine Glucose POC Glucose 137 H 120 H Lactic Acid Calcium Phosphorus Magnesium Total Bilirubin AST ALT Alkaline Phosphatase Total Protein Albumin Triglycerides Arterial Blood Glucose Arterial Blood Ionized Calcium Digoxin Crossmatch 01/19/21 01/19/21 01/19/21 08:56 11:33 17:32 WBC RBC Hgb Hct MCV MCHC RDW Plt Count Lymph % (Auto) Roberts % (Auto) Lymph # (Auto) Roberts # (Auto) Seg Neutrophils % Seg Neuts % (Manual) Lymphocytes % (Manual) Monocytes % (Manual) Seg Neutrophils # Seg Neutrophils # Man Lymphocytes # (Manual) Monocytes # (Manual) PT INR ABG pH POC ABG pCO2 POC ABG pO2 ABG pO2 ABG HCO3 ABG O2 Saturation ABG Base Excess ABG Hemoglobin ABG Oxyhemoglobin ABG Sodium ABG Potassium ABG Chloride ABG Glucose Oxyhemoglobin Sodium Potassium Chloride Carbon Dioxide BUN 66 H Creatinine 7.7 H Glucose 119 H POC Glucose 160 H 125 H Lactic Acid Calcium 8.3 L Phosphorus Magnesium Total Bilirubin AST ALT Alkaline Phosphatase Total Protein Albumin Triglycerides Arterial Blood Glucose Arterial Blood Ionized Calcium Digoxin Crossmatch 01/19/21 01/20/21 01/20/21 23:30 03:35 03:35 WBC 12.0 H RBC 2.62 L Hgb 8.3 L Hct 23.2 L MCV MCHC 36 H RDW Plt Count Lymph % (Auto) Roberts % (Auto) Lymph # (Auto) Roberts # (Auto) Seg Neutrophils % Seg Neuts % (Manual) Lymphocytes % (Manual) Monocytes % (Manual) Seg Neutrophils # Seg Neutrophils # Man Lymphocytes # (Manual) Monocytes # (Manual) PT INR ABG pH POC ABG pCO2 POC ABG pO2 ABG pO2 ABG HCO3 ABG O2 Saturation ABG Base Excess ABG Hemoglobin ABG Oxyhemoglobin ABG Sodium ABG Potassium ABG Chloride ABG Glucose Oxyhemoglobin Sodium Potassium Chloride Carbon Dioxide BUN 46 H Creatinine 5.9 H Glucose 128 H POC Glucose 127 H Lactic Acid Calcium Phosphorus Magnesium Total Bilirubin AST ALT Alkaline Phosphatase Total Protein Albumin Triglycerides Arterial Blood Glucose Arterial Blood Ionized Calcium Digoxin Crossmatch 01/20/21 01/20/21 01/20/21 06:19 11:55 18:00 WBC RBC Hgb Hct MCV MCHC RDW Plt Count Lymph % (Auto) Roberts % (Auto) Lymph # (Auto) Roberts # (Auto) Seg Neutrophils % Seg Neuts % (Manual) Lymphocytes % (Manual) Monocytes % (Manual) Seg Neutrophils # Seg Neutrophils # Man Lymphocytes # (Manual) Monocytes # (Manual) PT INR ABG pH POC ABG pCO2 POC ABG pO2 ABG pO2 ABG HCO3 ABG O2 Saturation ABG Base Excess ABG Hemoglobin ABG Oxyhemoglobin ABG Sodium ABG Potassium ABG Chloride ABG Glucose Oxyhemoglobin Sodium Potassium Chloride Carbon Dioxide BUN Creatinine Glucose POC Glucose 119 H 128 H 115 H Lactic Acid Calcium Phosphorus Magnesium Total Bilirubin AST ALT Alkaline Phosphatase Total Protein Albumin Triglycerides Arterial Blood Glucose Arterial Blood Ionized Calcium Digoxin Crossmatch 01/20/21 01/21/21 01/21/21 23:26 04:39 05:27 WBC RBC Hgb Hct MCV MCHC RDW Plt Count Lymph % (Auto) Roberts % (Auto) Lymph # (Auto) Roberts # (Auto) Seg Neutrophils % Seg Neuts % (Manual) Lymphocytes % (Manual) Monocytes % (Manual) Seg Neutrophils # Seg Neutrophils # Man Lymphocytes # (Manual) Monocytes # (Manual) PT INR ABG pH POC ABG pCO2 POC ABG pO2 ABG pO2 ABG HCO3 ABG O2 Saturation ABG Base Excess ABG Hemoglobin ABG Oxyhemoglobin ABG Sodium ABG Potassium ABG Chloride ABG Glucose Oxyhemoglobin Sodium Potassium Chloride Carbon Dioxide BUN 37 H Creatinine 5.3 H Glucose 109 H POC Glucose 108 H 107 H Lactic Acid Calcium Phosphorus 2.10 L Magnesium 1.50 L Total Bilirubin AST ALT Alkaline Phosphatase 143 H Total Protein 6.1 L Albumin 3.0 L Triglycerides Arterial Blood Glucose Arterial Blood Ionized Calcium Digoxin Crossmatch 01/21/21 01/21/21 01/22/21 11:35 17:53 00:20 WBC RBC Hgb Hct MCV MCHC RDW Plt Count Lymph % (Auto) Roberts % (Auto) Lymph # (Auto) Roberts # (Auto) Seg Neutrophils % Seg Neuts % (Manual) Lymphocytes % (Manual) Monocytes % (Manual) Seg Neutrophils # Seg Neutrophils # Man Lymphocytes # (Manual) Monocytes # (Manual) PT INR ABG pH POC ABG pCO2 POC ABG pO2 ABG pO2 ABG HCO3 ABG O2 Saturation ABG Base Excess ABG Hemoglobin ABG Oxyhemoglobin ABG Sodium ABG Potassium ABG Chloride ABG Glucose Oxyhemoglobin Sodium Potassium Chloride Carbon Dioxide BUN Creatinine Glucose POC Glucose 133 H 124 H 122 H Lactic Acid Calcium Phosphorus Magnesium Total Bilirubin AST ALT Alkaline Phosphatase Total Protein Albumin Triglycerides Arterial Blood Glucose Arterial Blood Ionized Calcium Digoxin Crossmatch 01/22/21 01/22/21 01/22/21 04:00 06:09 11:36 WBC RBC Hgb Hct MCV MCHC RDW Plt Count Lymph % (Auto) Roberts % (Auto) Lymph # (Auto) Roberts # (Auto) Seg Neutrophils % Seg Neuts % (Manual) Lymphocytes % (Manual) Monocytes % (Manual) Seg Neutrophils # Seg Neutrophils # Man Lymphocytes # (Manual) Monocytes # (Manual) PT INR ABG pH POC ABG pCO2 POC ABG pO2 ABG pO2 ABG HCO3 ABG O2 Saturation ABG Base Excess ABG Hemoglobin ABG Oxyhemoglobin ABG Sodium ABG Potassium ABG Chloride ABG Glucose Oxyhemoglobin Sodium Potassium Chloride Carbon Dioxide BUN 65 H Creatinine 8.2 H D Glucose 111 H POC Glucose 122 H 132 H Lactic Acid Calcium Phosphorus Magnesium Total Bilirubin AST ALT Alkaline Phosphatase Total Protein Albumin Triglycerides Arterial Blood Glucose Arterial Blood Ionized Calcium Digoxin Crossmatch Allied health notes reviewed: nursing
[2021-01-22] MEDS ORDERED: TOTAL PARENTERAL NUTRITION 2,016 ML IV SCH (20:00)
[2021-01-22] MEDS: INSULIN GLARGINE 100 UNITS/ML SUB-Q SCH (21:25)
[2021-01-23] MEDS: INSULIN LISPRO 100 UNIT/ML SUB-Q SCH ×5 (00:30→20:22)
[2021-01-23] MEDS: hydrALAZINE 20 MG/1 ML INJ IV SCH ×7 (01:48→21:01)
[2021-01-23] MEDS: METOPROLOL TARTRATE 5 MG/5 ML INJ IV SCH ×7 (01:49→21:01)
[2021-01-23] MEDS: PIPERACIL-TAZO 2.25 GM/50 ML 2.25 GM/50 ML BAG IV SCH ×3 (03:53→20:38)
[2021-01-23 06:28] LABS: Calcium 8.7 mg/dL (8.4-10.2)
[2021-01-23] MEDS: HYDROmorphone 1 MG/1 ML INJ IV PRN ×2 (09:49→20:22)
[2021-01-23] MEDS: FAMOTIDINE 20 MG/2 ML INJ IV SCH ×2 (09:50→21:01)
[2021-01-23] MEDS: diphenhydrAMINE 50 MG/ML VIAL IV PRN ×2 (09:50→20:24)
--- NOTE | 2021-01-23 10:23 | Progress Note ---
Assessment and Plan 1. Paroxysmal atrial fibrillation 2. Essential hypertension 3. End-stage renal disease on hemodialysis 4. Anemia 5. Status post acute small bowel obstruction with exploratory laparotomy. Plan. Currently patient is in a sinus rhythm cardiac paez stable. Continue management as per hospitalist note. Subjective Date of service: 01/23/21 Principal diagnosis: Ac hypoxemic resp failure; Severe Sepsis; Peritonitis; Acute SBO; ESRD; CHF Interval history: No cardiac symptoms Objective Vital Signs Temp Pulse Pulse Resp BP Pulse Ox 01/23/21 10:15 84 122/64 01/23/21 10:00 82 140/65 01/23/21 09:45 86 125/58 01/23/21 09:30 72 148/78 01/23/21 09:25 98.9 F 87 19 147/81 01/23/21 08:00 98.4 F 66 67 13 147/69 98 01/23/21 06:00 74 19 147/69 01/23/21 04:00 98.9 F 63 67 20 126/66 98 01/23/21 02:00 70 14 133/78 01/23/21 01:49 64 131/70 01/23/21 00:00 72 67 18 129/65 98 01/22/21 23:39 98.9 F 01/22/21 22:00 67 14 140/62 01/22/21 21:26 63 140/62 01/22/21 21:14 66 17 140/62 01/22/21 20:00 99.0 F 67 67 18 116/64 98 01/22/21 18:00 66 20 123/66 01/22/21 17:25 98.1 F 01/22/21 16:06 63 132/64 01/22/21 16:00 68 67 16 123/66 98 01/22/21 14:00 63 18 132/64 01/22/21 12:00 98.6 F 58 L 62 17 138/71 98 01/22/21 11:52 98.2 F - Physical Examination General: Appears Well, No Apparent Distress HEENT: Positive: PERRL Neck: Positive: neck supple Cardiac: Positive: Regular Rate, S1/S2, PMI, Laterally Displaced. Negative: S3, S4 Lungs: Positive: clear to auscultation, No Wheeze, Rales, Rhonchi Neuro: Positive: Weakness (Sedated, on the vent) Abdomen: Positive: Soft, Other (post op) Skin: Positive: Clear Extremities: Absent: edema - Labs and Meds Comprehensive Metabolic Panel 01/23/21 Range/Units 05:45 Sodium 140 (137-145) mmol/L Potassium 3.9 (3.6-5.0) mmol/L Chloride 99.1 (98-107) mmol/L Carbon Dioxide 23 (22-30) mmol/L BUN 96 H (9-20) mg/dL Creatinine 10.8 H (0.8-1.3) mg/dL Glucose 124 H (75-100) mg/dL Calcium 8.7 (8.4-10.2) mg/dL - Allied health notes Allied health notes reviewed: nursing
--- NOTE | 2021-01-23 10:56 | Progress Note ---
Assessment and Plan Assessment and plan: This is a 60 YO Male with ESRD on PD, GERD, Crohn's Disease, Nicotine Dependence, HTN, Systolic CHF(EF 35%) who presented to the emergency department on 12/22 with complaints of abdominal pain which began shortly after eating fast food rated 10/10 which is periumbilical, constant, associated with fever, nausea and multiple sites of vomiting and self-reported inability to undergo PD. In the emergency room patient underwent a CT scan of the abdomen/pelvis which revealed evidence of partial small bowel obstruction, symptoms were consistent with bacterial peritonitis. Patient was admitted to the hospital service with sepsis, peritonitis, and small bowel obstruction with consults to general surgery, nephrology, infectious disease and [facility]. 12/23. Patient had temperature 101.2 F, tachycardia and elevated lactic acid on admission. Meet sepsis criteria. Started on IV antibiotics. ID has been c onsulted. Surgery consulted this a.m.-advised laparoscopy. He remains on NG tube connected to suction. 12/24. Patient was noted to have peritonitis yesterday and patient undergoing exploratory laparotomy. Patient remained intubated after procedure and is in ICU. Now on broad-spectrum antibiotics. ID on board. 12/25. Remains mechanically ventilated and sedated. Temp 103 Fahrenheit. Antibiotics broadened-ID added fluconazole and Flagyl. Blood cultures ordered. Plan to repeat CT abdomen tomorrow if not better. Surgery following. 12/26: Patient remains on mechanical ventilation on CMV tidal line 550, rate of 14, PEEP of 8 and 30% FiO2 and sedated on fentanyl 4 micrograms. Today we will remove his Jeffery and CCM dropped his rate controlled him on CPAP. We will trend CBC given recent drop in H/H. 12/27: Patient remains intubated on CMV tidal volume 550, rate 12, PEEP 8 on 30% FiO2 at the time my examination. Patient's TPN will be changed to PPN. Patient's fentanyl drip will be changed to IV push fentanyl and have a permacath placed today and midline. Patient was placed on a spontaneous breathing trial was switched back to CMV prior to procedure. 12/28: Patient on fentanyl but awake and follows commands. At the time of my examination he was on a CPAP trial and is scheduled to receive HD today. s/o permacath and PICC placement with vascular yesterday. His blood culture grew Prevotella and addition to Streptococcus bovis. This evening Dr. Spicer attempted to extubate the patient and his heart rate went to the 180s. Stat EKG obtained and cardiology consulted. 12/29: Patient was started on amiodarone IV for A. fib RVR yesterday and today he is more rate controlled into the 70s and 80s. Patient was extubated yesterday and is currently on Ventimask. Patient will be transferred to [facility]. Patient continues to be n.p.o. with TPN and NG tube to LIS. He is hypokalemic today which was repleted. 12/30; patient was on IV amiodarone for treatment with RVR, rate is controlled. Patient was off oxygen. patient is n.p.o. and on TPN. Surgery is following the patient. 12/31: Patient was intubated overnight for respiratory distress and this morning on examination he was on assist control tidal volume 450, rate 20, PEEP 6, 100% FiO2 and RT was getting a ABG to adjust vent settings. Patient had a acute bump in WBC and per ID recommendations we will obtain a CT abdomen/pelvis if leukocytosis persist. Patient is on TPN and sedated with Levophed. Patient is also on vasopressor support with Levophed. Per surgery his ileus is resolving however will maintain OGT to LIWS. 01/01: Patient was started on a vasopressin yesterday late evening. This morning patient is on 20 mcg of Levophed and 0.03 vasopressin and sedated on 20 mcg of propofol. Patient WBC increased today and he is hypokalemic. We will treat hyperkalemia. Patient had a CT chest and abdomen/pelvis pending. The time examination total of 450, rate 20, PEEP of 6 and 35 percent FiO2. Per RN, Dr Pollock has stated that the patient will be returning to the OR today for likely anastomosis seen on CT abdomen/pelvis. 01/02: Patient noted, WBC improving, but noted to have anemia, will transfuse additional unit of Blood and repeat H/H. continue supportive care. 01/03: Continue to wean pressors, ABX PER ID, patient to return to OR today for washout and possible closure, CONTINUE TPN 01/04: Continues to show some improvement. Today is POD#12 s/p ex lap with extensive lysis of adhesions and two small bowel resections with primary anastamosis for SBO with necrotic segment small bowel. POD#3 s/p ex lap, resection of perforated anastamosis, washout and abthera wound vac placement. POD#1 s/p ex lap with right hemicolectomy. Surgery planning to take back to the OR on Saturday with the hope to anastamos ileum to transverse colon and close abdomen. keep NGT to suction. Pt in deep sedation due to open abdomen. Per ID - Continue IV Zosyn, renally dosed for Strep bacteremia treatment till 01/06/2021 -On TPN 01/05: Patient continues on HD, anticipate return to OR tomorrow for closure and anastemosis. Continues with deep sedation due to open abdomen 01/06: Continue supportive care, monitor pressures and electrolytes. He is post op Exploratory laparotomy, 2. Jejunal colonic anastomosis,3. Segmental small bowel resection and anastemosis closure today. Continue wound vac 01/07: Continue supportive care, Today is POD#15 s/p ex lap with extensive lysis of adhesions and two small bowel resections with primary anastamosis for SBO with necrotic segment small bowel. POD#6 s/p ex lap, resection of perforated anastamosis, washout and abthera wound vac placement. POD#4 s/p ex lap with right hemicolectomy. POD #1 exploratory laparotomy, 2. Jejunal colonic anastomosis,3. Segmental small bowel resection. Continue to monitor and correct electrolytes. Patient remains on fentanyl and TPN with lipids. Still hypoactive bowel sounds. 16: Patient now extubated, asked when he can go home, Still lethargic. Continue wound management, wound vac, Will need Rehab eval prior to discharge. 01/09: Patient remains on TPN, was started on labetalol drip per cardiology, africa dueñas had uncontrolled hypertension today however he cannot be given p.o. medications ileus resolves per surgery. Patient received hemodialysis today. NG tube remains to low intermittent suction. 01/10: Patient has some leukocytosis, slight hypokalemia and hyponatremia, metabolic acidosis. NG tube to LIWS, continue TPN. Patient will be downgraded to IMCU today. [facility] is working on placement. Will change frequency of hydralazine and discontinue labetalol drip. We will obtain a.m. BMP/mag/Phos and CBC. Infectious disease will like to start Zosyn if leukocytosis continues to worsen. 01/11: Patient leukocytosis has slightly improved potassium with in normal limits and other electrolytes are elevated but patient is scheduled for HD today. Remains on RA and A,A,Ox4. BP better controlled but remains elevated and we will increase clonidine dose. 01/12/2021; patient's blood pressure is better after dialysis and as needed IV medications and clonidine patch. Patient is followed by general surgery. Patient was alert and oriented and asked when he is going home. 01/13: Surgery is concerned about a leak at his anastamosis given increased output and will treat as controlled fistula and start an octreotide drip. And per surgery if he requires operative intervention will likely need to be left in discontinuity and eventual ileostomy as he has already failed two anastamoses. Patient still has tongue swelling and slurred speech. He is on Benadryl. 01/14: Patient's tongue swelling is improved, patient is alert and oriented, CAM ICU negative. Continue NG tube to low wall intermittent suction. Leukocytosis is improving. Hypomagnesemia resolved. Epogen with HD 01/15: Patient tongue swelling is much improved, bladder scan completed by bedside RN and he needed to be straight cathed. NGT output decreased. Leukocytosis improving. Patient has been having episodes of hypoglycemia during the day and he is on cyclic TPN, Lantus rescheduled to nightly and dosage decreased. 01/16: Continue management per ID and surgery. Will defer repeat CT of the abdomen to the team surgery has been approved by nephrology. Continue current diet and advance all to ice if okay with surgery discussed with nursing staff. 01/17: Discussed surgical recommendation of strict n.p.o. except for small amount of ice as patient has already failed to anastomosis. And risk for additional surgery with tissues were extremely friable from previous scar. He continues on octreotide drip to slow down GI output HARIS drain remains in place with NG suction for decompression. Patient verbalized understanding although stressed about being discharged. We will continue IMCU care unless otherwise advised by david andresen. Prognosis remains guarded continue to monitor electrolytes considering GI output. 01/18: Continue supportive care, BP mildly elevated, continue to monitor, continue current therapy, if no return to PO soon may consider Increasing clonidine to 0.3, PO when ok with surgery. 01/19:Continue supportive care, Per ID continue IV Zosyn, plan to stop at 3 weeks from last surgery end date: 01/24/2021. Other management per surgery. Continue TPN. 01/20: Discussed with Surgery, will continue current management. Advised patient of the findings and plan. 01/21: Continue supportive care. Continue management per surgery advance diet when okay with surgery. Plan of care discussed with the patient in detail. 01/22: NG tube to be replaced explained to the patient why this is important. I agree with PT OT discussed with nursing staff very important to let the PT team know that they should manage HARIS drain while patient is ambulating so that he does not come out. Continue current management. Change in ocreotide to q8h and d/c drip NOTED 01/23: Continue supportive care, HD today, counselling provided to the patient on compliance with medical management Severe Sepsis with shock Streptococcus bovis bacteremia/Prevotella bacteremia Gwendolyn albicans tracheal aspirate Small bowel obstruction/necrotic bowel s/p ex lap with extensive lysis of adhesions, 2 small bowel resections with primary anastomosis, right hemicolectomy, jejunal colonic anastomosis, segmental small bowel resection Postoperative ileus Atrial fibrillation with RVR Leukocytosis Hypochloremia Gwendolyn albicans in tracheal aspirate from 12/24 ESRD on PD, PermCath to be placed Transaminitis Systolic CHF(EF 35%) Crohn's disease Hypertension -[facility], surgery, infectious disease, nephrology, vascular surgery, cardiology consulted, appreciate recommendations -12/24 S/p ex lap with extensive expectations, 2 small bowel resections with primary anastomosis with surgery on 12/23 -s/p PICC and Permacath placement with vascular surgery on 12/27 -Extubated on 12/28, reintubated 12/31 for respiratory distress and extubated 01/08 -12/29 echocardiogram shows moderate concentric LVH, small pericardial effusion, transmitral Doppler flow pattern is grade 1 abnormal relaxation pattern, left- ventricular systolic function normal, LVEF 50 to 55%, no wall motion abnormalities. -01/01 CT abdomen/pelvis shows small pericardial effusion, mild coronary artery atherosclerotic calcification, small bilateral pleural effusions with associated volume loss, no convincing evidence of bowel obstruction or inflammation, postoperative changes from interval/recent midline laparotomy with a moderate amount of free fluid throughout the abdomen, small amount of dependent free air presumably postoperative -01/02 s/p ex lap, resection of perforated anastamosis, washout and abthera wound vac placement. -01/04 s/p ex lap with right hemicolectomy. -01/06 s/p exploratory laparotomy, Jejunal colonic anastomosis, Segmental small bowel resection. -s/p Vasopressor support with Levophed and vasopressin -Transitioned to HD from PD -HD per nephro, Epogen with HD -Strict NPO -TPN -Octreotide drip -NGT to LIWS -s/p IV antibiotics -Tobacco abuse cessation counseling -Trend CBC, BMP DVT/GI prophylaxis: PPI, heparin subcu, SCDs to bilateral lower extremities while in bed Disposition: IMCU History Interval history: This is a 60-year-old male with ESRD on peritoneal dialysis, Crohn's, hypertension, systolic CHF (EF 35%) who was admitted with sepsis, peritonitis, small bowel obstruction and now has gram-positive cocci bacteremia. Patient seen and examined, Still refused replacement of NGT Currently undergoing HD Hospitalist Physical - Physical exam Narrative exam: General appearance: Present: no acute distress, Dry oropharyngeal area. - EENT Eyes: Present: PERRL ENT: poor dentition - Neck Neck: Absent: masses or JVD, cervical LAD - Respiratory Respiratory effort: normal Respiratory: bilateral: diminished - Cardiovascular Rhythm: irregularly irregular Heart Sounds: Present: S1 & S2. Absent: systolic murmur, diastolic murmur - Extremities Extremities: no ischemia, pulses intact, pulses symmetrical, No edema, normal temperature, normal color Peripheral Pulses: within normal limits - Abdominal General gastrointestinal: distended, abdomen dressing, rigid, w HARIS drain in place. Hypoactive bowel sounds. - Integumentary Integumentary: Present: Left chest permacath - Neurologic Neurologic: Awake alert oriented moves extremities, SPEECH IS NORMAL - Allied Health Allied health notes reviewed: nursing - Constitutional Vitals: Temp Pulse Resp BP Pulse Ox 98.9 F 89 19 111/53 98 01/23/21 09:25 01/23/21 10:45 01/23/21 09:25 01/23/21 10:45 01/23/21 08:00 General appearance: Present: no acute distress HEART Score - HEART Score Troponin: Troponin T 0.021 ng/mL (0.00-0.029) 12/22/20 14:38 Results - Labs CBC & Chem 7: 01/20/21 03:35 01/23/21 05:45 Labs: Laboratory Last Values WBC 12.0 K/mm3 (4.5-11.0) H 01/20/21 03:35 RBC 2.62 M/mm3 (3.65-5.03) L 01/20/21 03:35 Hgb 8.3 gm/dl (11.8-15.2) L 01/20/21 03:35 Hct 23.2 % (35.5-45.6) L 01/20/21 03:35 MCV 89 fl (84-94) 01/20/21 03:35 MCH 32 pg (28-32) 01/20/21 03:35 MCHC 36 % (32-34) H 01/20/21 03:35 RDW 15.2 % (13.2-15.2) 01/20/21 03:35 Plt Count 230 K/mm3 (140-440) 01/20/21 03:35 Lymph % (Auto) 4.4 % (13.4-35.0) L 01/13/21 03:45 [place] % (Auto) 10.3 % (0.0-7.3) H 01/13/21 03:45 Eos % (Auto) 0.9 % (0.0-4.3) 01/13/21 03:45 Baso % (Auto) 0.2 % (0.0-1.8) 01/13/21 03:45 Lymph # (Auto) 0.8 K/mm3 (1.2-5.4) L 01/13/21 03:45 [place] # (Auto) 1.8 K/mm3 (0.0-0.8) H 01/13/21 03:45 Eos # (Auto) 0.2 K/mm3 (0.0-0.4) 01/13/21 03:45 Baso # (Auto) 0.0 K/mm3 (0.0-0.1) 01/13/21 03:45 Add Manual Diff Complete 01/10/21 09:26 Total Counted 100 01/10/21 09:26 Seg Neutrophils % 84.2 % (40.0-70.0) H 01/13/21 03:45 Seg Neuts % (Manual) 95.0 % (40.0-70.0) H 01/10/21 09:26 Band Neutrophils % 1.0 % 01/10/21 09:26 Lymphocytes % (Manual) 3.0 % (13.4-35.0) L 01/10/21 09:26 Reactive Lymphs % (Man) 1.0 % 12/29/20 05:16 Monocytes % (Manual) 1.0 % (0.0-7.3) 01/10/21 09:26 Eosinophils % (Manual) 2.0 % (0.0-4.3) 12/29/20 05:16 Metamyelocytes % 2.0 % 12/29/20 05:16 Nucleated RBC % Not Reportable 01/10/21 09:26 Seg Neutrophils # 14.8 K/mm3 (1.8-7.7) H 01/13/21 03:45 Seg Neutrophils # Man 17.3 K/mm3 (1.8-7.7) H 01/10/21 09:26 Band Neutrophils # 0.2 K/mm3 01/10/21 09:26 Lymphocytes # (Manual) 0.5 K/mm3 (1.2-5.4) L 01/10/21 09:26 Abs React Lymphs (Man) 0.0 K/mm3 01/10/21 09:26 Monocytes # (Manual) 0.2 K/mm3 (0.0-0.8) 01/10/21 09:26 Eosinophils # (Manual) 0.0 K/mm3 (0.0-0.4) 01/10/21 09:26 Basophils # (Manual) 0.0 K/mm3 (0.0-0.1) 01/10/21 09:26 Metamyelocytes # 0.0 K/mm3 01/10/21 09:26 Myelocytes # 0.0 K/mm3 01/10/21 09:26 Promyelocytes # 0.0 K/mm3 01/10/21 09:26 Blast Cells # 0.0 K/mm3 01/10/21 09:26 WBC Morphology Not Reportable 01/10/21 09:26 Hypersegmented Neuts Not Reportable 01/10/21 09:26 Hyposegmented Neuts Not Reportable 01/10/21 09:26 Hypogranular Neuts Not Reportable 01/10/21 09:26 Smudge Cells Not Reportable 01/10/21 09:26 Toxic Granulation 1+ 01/10/21 09:26 Toxic Vacuolation Not Reportable 01/10/21 09:26 Dohle Bodies Not Reportable 01/10/21 09:26 Pelger-Huet Anomaly Not Reportable 01/10/21 09:26 Lamar Rods Not Reportable 01/10/21 09:26 Platelet Estimate Consistent w auto 01/10/21 09:26 Clumped Platelets Not Reportable 01/10/21 09:26 Plt Clumps, EDTA Not Reportable 01/10/21 09:26 Large Platelets Not Reportable 01/10/21 09:26 Giant Platelets Not Reportable 01/10/21 09:26 Platelet Satelliting Not Reportable 01/10/21 09:26 Plt Morphology Comment Not Reportable 01/10/21 09:26 RBC Morphology Not Reportable 01/10/21 09:26 Dimorphic RBCs Not Reportable 01/10/21 09:26 Polychromasia Not Reportable 01/10/21 09:26 Hypochromasia Not Reportable 01/10/21 09:26 Poikilocytosis Not Reportable 01/10/21 09:26 Anisocytosis 1+ 01/10/21 09:26 Microcytosis Not Reportable 01/10/21 09:26 Macrocytosis Not Reportable 01/10/21 09:26 Spherocytes Not Reportable 01/10/21 09:26 Pappenheimer Bodies Not Reportable 01/10/21 09:26 Sickle Cells Not Reportable 01/10/21 09:26 Target Cells Not Reportable 01/10/21 09:26 Tear Drop Cells Not Reportable 01/10/21 09:26 Ovalocytes Not Reportable 01/10/21 09:26 Helmet Cells Not Reportable 01/10/21 09:26 [place] Bodies Not Reportable 01/10/21 09:26 [place] Rings Not Reportable 01/10/21 09:26 Jenny Cells Not Reportable 01/10/21 09:26 Bite Cells Not Reportable 01/10/21 09:26 Crenated Cell Not Reportable 01/10/21 09:26 Elliptocytes Not Reportable 01/10/21 09:26 Acanthocytes (Spur) Not Reportable 01/10/21 09:26 Rouleaux Not Reportable 01/10/21 09:26 Hemoglobin C Crystals Not Reportable 01/10/21 09:26 Schistocytes Not Reportable 01/10/21 09:26 Malaria parasites Not Reportable 01/10/21 09:26 Lucas Bodies Not Reportable 01/10/21 09:26 Hem Pathologist Commnt No 01/10/21 09:26 PT 16.9 Sec. (12.2-14.9) H 01/01/21 12:45 INR 1.39 (0.87-1.13) H 01/01/21 12:45 APTT 25.1 Sec. (24.2-36.6) 12/22/20 14:38 ABG pH 7.345 pH Units (7.350-7.450) L 01/07/21 17:14 POC ABG pCO2 41.4 mmHg (32.0-48.0) 01/07/21 03:07 ABG pCO2 40.3 mm Hg 01/07/21 17:14 POC ABG pO2 94.5 mmHg (83-108) 01/07/21 03:07 ABG pO2 67.4 mm Hg (80.0-90.0) L 01/07/21 17:14 POC ABG HCO3 22.7 01/07/21 03:07 ABG HCO3 21.5 mmol/L (20.0-26.0) 01/07/21 17:14 ABG O2 Saturation 94.3 % (95.0-99.0) L 01/07/21 17:14 ABG O2 Content 11.6 (0.0-44) 01/07/21 17:14 POC ABG Base Excess -2.7 01/07/21 03:07 ABG Base Excess -3.9 mmol/L (-2.0-3.0) L 01/07/21 17:14 ABG Hemoglobin 8.9 gm/dl (14.0-18.0) L 01/07/21 17:14 ABG Oxyhemoglobin 96.6 (94-98) 01/07/21 03:07 ABG Carboxyhemoglobin 1.5 % (0.0-5.0) 01/07/21 17:14 ABG Methemoglobin 0.6 % (0.0-1.5) 01/07/21 17:14 ABG Sodium 135.6 mmol/L (136.0-145.0) L 01/07/21 03:07 ABG Potassium 4.0 mmol/L (3.40-4.50) 01/07/21 03:07 ABG Chloride 102.0 mmol/L (98-107) 01/07/21 03:07 ABG Glucose 181 mg/dL (65-95) H 01/07/21 03:07 Oxyhemoglobin 92.3 % (95.0-99.0) L 01/07/21 17:14 Carboxyhemoglobin 0.7 (0.5-1.5) 01/07/21 03:07 FiO2 21 % 01/07/21 17:14 FiO2 % 45.0 01/07/21 03:07 Sodium 140 mmol/L (137-145) 01/23/21 05:45 Potassium 3.9 mmol/L (3.6-5.0) 01/23/21 05:45 Chloride 99.1 mmol/L (98-107) 01/23/21 05:45 Carbon Dioxide 23 mmol/L (22-30) 01/23/21 05:45 Anion Gap 22 mmol/L 01/23/21 05:45 BUN 96 mg/dL (9-20) H 01/23/21 05:45 Creatinine 10.8 mg/dL (0.8-1.3) H 01/23/21 05:45 Estimated GFR 6 ml/min 01/23/21 05:45 BUN/Creatinine Ratio 9 % 01/23/21 05:45 Glucose 124 mg/dL (75-100) H 01/23/21 05:45 POC Glucose 129 mg/dL (70-105) H 01/23/21 05:29 Lactic Acid 1.10 mmol/L (0.7-2.0) 01/14/21 05:39 Calcium 8.7 mg/dL (8.4-10.2) 01/23/21 05:45 Phosphorus 2.60 mg/dL (2.5-4.5) 01/23/21 05:45 Magnesium 2.50 mg/dL (1.7-2.3) H 01/23/21 05:45 Total Bilirubin 0.60 mg/dL (0.1-1.2) 01/21/21 04:39 AST 28 units/L (5-40) 01/21/21 04:39 ALT 25 units/L (7-56) 01/21/21 04:39 Alkaline Phosphatase 143 units/L (35-129) H 01/21/21 04:39 Ammonia 30.0 umol/L (25-60) 12/22/20 14:38 Troponin T 0.021 ng/mL (0.00-0.029) 12/22/20 14:38 Total Protein 6.1 g/dL (6.3-8.2) L 01/21/21 04:39 Albumin 3.0 g/dL (3.9-5) L 01/21/21 04:39 Albumin/Globulin Ratio 1.0 % 01/21/21 04:39 Triglycerides 73 mg/dL (2-149) 01/18/21 04:19 Lipase 41 units/L (13-60) 12/22/20 14:38 Procalcitonin > 200.00 ng/mL (<0.15) 12/24/20 15:06 TSH 1.470 mlU/mL (0.270-4.200) 12/28/20 19:44 Arterial Blood Glucose 181 mg/dL (65-95) H 01/07/21 03:07 Arterial Blood Ionized Calcium 4.3 mg/dL (4.6-5.3) L 01/07/21 03:07 Urine Color Yellow (Yellow) 12/22/20 18:53 Urine Turbidity Clear (Clear) 12/22/20 18:53 Urine pH 7.0 (5.0-7.0) 12/22/20 18:53 Ur Specific [place] 1.012 (1.003-1.030) 12/22/20 18:53 Urine Protein >500 mg/dL (Negative) 12/22/20 18:53 Urine Glucose (UA) Neg mg/dL (Negative) 12/22/20 18:53 Urine Ketones Neg mg/dL (Negative) 12/22/20 18:53 Urine Blood Neg (Negative) 12/22/20 18:53 Urine Nitrite Neg (Negative) 12/22/20 18:53 Urine Bilirubin Neg (Negative) 12/22/20 18:53 Urine Urobilinogen < 2.0 mg/dL (<2.0) 12/22/20 18:53 Ur Leukocyte Esterase Neg (Negative) 12/22/20 18:53 Urine WBC (Auto) < 1.0 /HPF (0.0-6.0) 12/22/20 18:53 Urine RBC (Auto) 1.0 /HPF (0.0-6.0) 12/22/20 18:53 Fluid Type Dialysate 12/22/20 Unknown Fluid Color Colorless 12/22/20 Unknown Fluid Appearance Cloudy 12/22/20 Unknown Fluid WBC 208 /mm3 12/22/20 Unknown Fluid RBC 45 /mm3 12/22/20 Unknown Fluid Seg Neutrophils 82.0 % 12/22/20 Unknown Fluid Lymphocytes 11.0 % 12/22/20 Unknown Fluid Reactive Lymphs 0 % 12/22/20 Unknown Fluid Monocytes 7.0 % 12/22/20 Unknown Fluid Eosinophils 0 % 12/22/20 Unknown Fluid Basophils 0 % 12/22/20 Unknown Random Vancomycin 13.7 ug/mL (0-40.0) 12/26/20 Unknown Digoxin 0.8 ng/mL (0.9-2.0) L 01/11/21 05:18 Hepatitis A IgM Ab Non-reactive (NonReactive) 12/23/20 11:38 Hep Bs Antigen Non-reactive (Negative) 12/23/20 11:38 Hep B Core IgM Ab Non-reactive (NonReactive) 12/23/20 11:38 Hepatitis C Antibody Non-reactive (NonReactive) 12/23/20 11:38 Blood Type A POSITIVE 01/06/21 07:10 Antibody Screen Negative 01/06/21 07:10 Crossmatch See Detail 01/06/21 07:10 Jeffery/IV: Voiding Method Self-Catheterization Active Medications - Current Medications Current Medications: Generic Name Dose Route Start Last Admin Trade Name Freq PRN Reason Stop Dose Admin Acetaminophen 650 mg 12/31/20 15:30 01/21/21 05:28 Acetaminophen 650 Mg Rect Supp [place] 650 mg Q6H PRN Administration Non Cardiac Pain or Temp>100.5 Clonidine HCl 0.2 mg 01/11/21 10:00 01/18/21 10:11 Clonidine Tts 0.2 Mg/24 Hr Patch TD 0.2 mg We THOMAS Administration Dextrose 50 ml 01/14/21 17:59 01/18/21 15:10 Dextrose 50% In Water (25gm) 50 Ml Syringe IV 20 ml Q30MIN PRN Administration Hypoglycemia Protocol Digoxin 0.125 mg 01/09/21 12:00 01/21/21 13:15 Digoxin 0.5 Mg/2 Ml Inj IV 0.125 mg Q48H THOMAS Administration Diphenhydramine HCl 50 mg 01/20/21 10:10 01/23/21 09:50 Diphenhydramine 50 Mg/Ml Vial IV 50 mg Q6H PRN Administration Itching Famotidine 10 mg 12/24/20 13:00 01/23/21 09:50 Famotidine 20 Mg/2 Ml Inj IV 10 mg BID THOMAS Administration Haloperidol Lactate 5 mg 12/29/20 14:16 01/22/21 23:56 Haloperidol Lactate 5 Mg/1 Ml Inj IV 5 mg Q12H PRN Administration Agitation Heparin Sodium (Porcine) 5,000 unit 12/24/20 10:00 01/22/21 21:24 Heparin 5,000 Unit/1 Ml Vial SUB-Q 5,000 unit Q12HR THOMAS Administration Hydralazine HCl 10 mg 01/10/21 14:00 01/23/21 08:02 Hydralazine 20 Mg/1 Ml Inj IV Not Given Q4HR [facility] Hydromorphone HCl 0.25 mg 01/09/21 10:53 01/23/21 09:49 Hydromorphone 1 Mg/1 Ml Inj IV 0.25 mg Q6H PRN Administration Pain , Severe (7-10) Hydrophilic Ointment 1 applic 12/31/20 06:39 01/11/21 21:28 Lip Therapy Vaseline TP 1 applic Q2HR PRN Administration Dry Lips Piperacillin Sod/Tazobactam Sod 2.25 gm in 50 mls @ 100 mls/hr 01/13/21 12:00 01/23/21 03:53 Zosyn/Ns 2.25 Gm/50ml IV 01/24/21 20:29 100 mls/hr Q8H THOMAS Administration Protocol Sodium Chloride 100 mls @ 999 mls/hr 01/19/21 09:30 Nacl 0.9% IV [place] PRN Hypotension Octreotide Acetate 100 mcg/ 101 mls @ 200 mls/hr 01/21/21 15:00 01/22/21 22:15 Sodium Chloride IV 200 mls/hr Q8H THOMAS Administration Amino Acids/Electrolytes/Dextrose 2,016 mls @ 84 mls/hr 01/22/21 20:00 01/22/21 20:26 Tpn Adult IV 01/23/21 19:59 84 mls/hr DAILY@[email or web address] [facility] Administration Protocol Amino Acids/Electrolytes/Dextrose 2,016 mls @ 84 mls/hr 01/23/21 20:00 Tpn Adult IV 01/24/21 19:59 DAILY@1999 [facility] Protocol Fat Emulsion Intravenous 250 mls @ 21 mls/hr 01/23/21 20:00 Intralipid 20% IV 01/24/21 08:00 [email or web address] [facility] Insulin Glargine 5 units 01/18/21 22:00 01/22/21 21:25 Insulin Glargine 100 Units/Ml SUB-Q 5 units QHS [facility] Administration Insulin Human Lispro 0 unit 01/03/21 12:00 01/23/21 08:02 Insulin Lispro 100 Unit/Ml SUB-Q Not Given Q6HR [facility] Protocol Metoprolol Tartrate 5 mg 12/30/20 12:00 01/23/21 08:02 Metoprolol Tartrate 5 Mg/5 Ml Inj IV Not Given Q4HR [facility] Multi-Ingred Cream/Lotion/Oil/Oint 1 applic 12/31/20 06:39 Mineral Oil/Petrolatum, White Ophth Oint 3.5 Gm OU Q4HR PRN Dry Eye(s) Scopolamine 1 each 01/15/21 11:00 01/21/21 10:12 Scopolamine Transdermal Patch 72 Hr TD 1 each Q3D THOMAS Administration Sodium Chloride 10 ml 12/22/20 22:00 01/22/21 21:33 Sodium Chloride 0.9% 10 Ml Flush Syringe IV 10 ml BID THOMAS Administration Sodium Chloride 10 ml 12/22/20 19:42 01/09/21 17:27 Sodium Chloride 0.9% 10 Ml Flush Syringe IV 10 ml PRN PRN Administration LINE FLUSH Nutrition/Malnutrition Assess - Dietary Evaluation Nutrition/Malnutrition Findings: Nutrition Notes Start: 12/24/20 12:36 Freq: Status: Active Protocol: Document 01/23/21 07:53 LP (Rec: 01/23/21 07:56 LP [id number]) Nutrition Notes Initial or Follow up Reassessment Other Pertinent Diagnosis Peritonitis, SBO s/p resection Current Diet CPN at 84 ml/hr Labs/Tests Mg 2.5 Pertinent Medications Reviewed Height 5 ft 7 in Weight 73 kg [place] Body Weight (kg) 67.27 BMI 25.2 Weight Status Overweight Subjective/Other Information TPN day 29. MD not replacing NGT for now. Pt on strict NPO. Percent of energy/protein needs met: 100%/100% Burn Absent Trauma Absent Current % PO Negligible Minimum of two criteria No #2 Nutrition Diagnosis Increased nutrient needs ( specify in comment below) Diagnosis Progress(for reassessment Continues documentation) #1 Nutrition Diagnosis Inadequate oral intake Diagnosis Progress(for reassessment Continues documentation) Is patient on ventilator? No Is Patient Ambulatory and/or Out of Bed No REE-([place]-confined to bed) 1791.432 Kcal/Kg value to use for calculation 22 Approximate Energy Requirements Using 1606 kcal/Kg Calculation Used for Recommendations Kcal/kg Additional Notes Pro needs: 101-121 g/day (1.25 -1.5 g/kg AdjBW, 81kg) Fluid needs per MD. Nutrition Intervention Change Diet Order: Continue CPN Nutrition Support: Continous CPN at 84 ml/hr: 0mEq Mg, Lipids MVI Kcal 1,674 Protein (gm) 121 Carbohydrates (gm) 350 Fat (gm) 0 Fluid (mL) 2,016 Fiber (gm) 0 Goal #1 Meet at least 75% of estimated energy and protein needs via CPN Anticipated Discharge Needs: continuous TPN at 84ml/hr Follow-Up By: 01/24/21 Additional Comments Labs in AM: BMP, Mg
--- NOTE | 2021-01-23 11:13 | Progress Note ---
Assessment and Plan Cultures: 12/22/2020 blood culture: Streptococcus bovis, Prevotella 12/22/2020 PD fluid culture: No growth 12/24/2020 tracheal aspirate culture: No growth 12/24/2020 blood culture: No growth 12/31/2020 sputum culture: No growth A/P: 60-year-old male with ESRD on PD, Crohn's disease, CHF, gastroesophageal reflux disease was admitted to the hospital with complaints of abdominal pain and fever: #Severe sepsis with shock: improved. Secondary to small bowel obstruction/necrotic bowel with associated peritonitis. Status post exploratory laparotomy on 12/23/2020 with extensive lysis, primary anastomosis, found to have necrotic segment of small bowel. #Small bowel obstruction/necrotic bowel: with concern for PD associated peritonitis: Nephrology and general surgery following. Status post exploratory laparotomy on 12/23/2020 with extensive lysis, primary anastomosis, found to have necrotic segment of small bowel. PD catheter remains in place. S/p ex lap, resection of perforated anastamosis, washout and abthera wound vac placement on 01/01. Repeat CT abdomen showed no new abscesses, noted small free fluid. S/p Exploratory laparotomy, Right hemicolectomy, Peritoneal lavage, Partial omentectomy, ABThera wound VAC placement on 01/03/2021. Complicated intra- abdominal situation per d/w Dr. Sanchez, plan to continue IV abx for now, has limited surgical options at this time. #Streptococcus bovis bacteremia and Prevotella bacteremia: secondary to above. TTE without obvious vegetations. Repeat blood cultures negative. #ESRD: Renally dose antibiotics. Used to be on PD. On HD. #Acute respiratory failure: off the vent. Recs: -continue IV Zosyn, plan to stop at 3 weeks from last surgery (end date: 01/24/2021) Yesika Denny MD, FACP [facility] ([facility] O: [phone] F: [phone] Subjective Date of service: 01/23/21 Principal diagnosis: Ac hypoxemic resp failure; Severe Sepsis; Peritonitis; Acute SBO; ESRD; CHF Interval history: No fever. No complaints. Getting HD at bedside. NG remains out. Objective - Exam Narrative Exam: Physical Exam: Constitutional: awake alert, calm Head, Ears, Nose: Normocephalic, atraumatic. External ears, nose normal Eyes: Conjunctivae/corneas clear. No icterus. No ptosis. Neck: supple Cardiovascular: S1, S2 + Respiratory: AE fair bilaterally GI: VAC +, bowel sounds +, drain + Musculoskeletal: No pedal edema, no cyanosis. Skin: No rash or abscess Hem/Lymphatic: No palpable cervical or supraclavicular nodes. No lymphangitis Psych: calm, no agitation Neurological: awake, alert, oriented. - Constitutional Vitals: Vital Signs Temp Pulse Resp BP Pulse Ox 98.9 F 89 19 104/56 98 01/23/21 09:25 01/23/21 11:00 01/23/21 09:25 01/23/21 11:00 01/23/21 08:00 Temperature -Last 24 Hours Temperature 98.9 F Temperature 98.4 F Temperature 98.9 F Temperature 98.9 F Temperature 99.0 F Temperature 98.1 F Temperature 98.6 F Temperature 98.2 F - Labs CBC & Chem 7: 01/20/21 03:35 01/23/21 05:45 Labs: Abnormal lab results 01/22/21 01/22/21 01/22/21 Range/Units 11:36 17:17 23:18 BUN (9-20) mg/dL Creatinine (0.8-1.3) mg/dL Glucose (75-100) mg/dL POC Glucose 132 H 135 H 128 H (70-105) mg/dL Magnesium (1.7-2.3) mg/dL 01/23/21 01/23/21 Range/Units 05:29 05:45 BUN 96 H (9-20) mg/dL Creatinine 10.8 H (0.8-1.3) mg/dL Glucose 124 H (75-100) mg/dL POC Glucose 129 H (70-105) mg/dL Magnesium 2.50 H (1.7-2.3) mg/dL
--- NOTE | 2021-01-23 11:15 | Progress Note ---
Assessment and Plan 60 yo M POD#30 s/p ex lap with extensive lysis of adhesions and two small bowel resections with primary anastamosis for SBO with necrotic segment small bowel. POD#21 s/p ex lap, resection of perforated anastamosis, washout and abthera woun d vac placement. POD#19 s/p ex lap with right hemicolectomy. POD#17 s/p ex lap, with jejunal-colonic anastamosis and closure of abdomen. Afebrile and stable. Plan: 1. Continue HARIS drain to bulb suction. 2. Strict NPO. If HARIS drainage increases significantly will have to talk to patient about the importance of replacing NGT. HARIS drain must be secured and kept in place. 3. continue q 8h ocreotide. 4. PT consult at bedside. Need to ensure drain is protected during movements. 5. TPN 6. GI ppx 7. IV abx per ID Prognosis is guarded. Thank you, please call with questions. Subjective Date of service: 01/23/21 Narrative: Pt seen and examined. No complaints. On HD. No n/v reported. Afebrile. Objective Vital Signs - 12hr 01/22/21 01/23/21 01/23/21 23:39 00:00 01:49 Temperature 98.9 F Pulse Rate 72 64 Pulse Rate [ 67 From Monitor] Respiratory 18 Rate Blood Pressure 129/65 131/70 O2 Sat by Pulse 98 Oximetry 01/23/21 01/23/21 01/23/21 02:00 04:00 06:00 Temperature 98.9 F Pulse Rate 70 63 74 Pulse Rate [ 67 From Monitor] Respiratory 14 20 19 Rate Blood Pressure 133/78 126/66 147/69 O2 Sat by Pulse 98 Oximetry 01/23/21 01/23/21 01/23/21 08:00 09:25 09:30 Temperature 98.4 F 98.9 F Pulse Rate 66 87 72 Pulse Rate [ 67 From Monitor] Respiratory 13 19 Rate Blood Pressure 147/69 147/81 148/78 O2 Sat by Pulse 98 Oximetry 01/23/21 01/23/21 01/23/21 09:45 10:00 10:15 Temperature Pulse Rate 86 82 84 Pulse Rate [ From Monitor] Respiratory Rate Blood Pressure 125/58 140/65 122/64 O2 Sat by Pulse Oximetry 01/23/21 01/23/21 01/23/21 10:30 10:45 11:00 Temperature Pulse Rate 84 89 89 Pulse Rate [ From Monitor] Respiratory Rate Blood Pressure 119/62 111/53 104/56 O2 Sat by Pulse Oximetry - General physical appearance Narrative Exam: Gen: Awake and alert. NAD CV: S1, S2+ Resp: even and unlabored Abd: soft, NT, ND. Incisional wound vac in place with good seal and no leak. HARIS drain with minimal bilious drainage. Ext: no c/c/e HARIS output: 35cc/24hours - Labs 01/20/21 03:35 01/23/21 05:45 Diabetes panel 01/23/21 Range/Units 05:45 Sodium 140 (137-145) mmol/L Potassium 3.9 (3.6-5.0) mmol/L Chloride 99.1 (98-107) mmol/L Carbon Dioxide 23 (22-30) mmol/L BUN 96 H (9-20) mg/dL Creatinine 10.8 H (0.8-1.3) mg/dL Glucose 124 H (75-100) mg/dL Calcium 8.7 (8.4-10.2) mg/dL Calcium panel 01/23/21 Range/Units 05:45 Calcium 8.7 (8.4-10.2) mg/dL Phosphorus 2.60 (2.5-4.5) mg/dL Pituitary panel 01/23/21 Range/Units 05:45 Sodium 140 (137-145) mmol/L Potassium 3.9 (3.6-5.0) mmol/L Chloride 99.1 (98-107) mmol/L Carbon Dioxide 23 (22-30) mmol/L BUN 96 H (9-20) mg/dL Creatinine 10.8 H (0.8-1.3) mg/dL Glucose 124 H (75-100) mg/dL Calcium 8.7 (8.4-10.2) mg/dL Adrenal panel 01/23/21 Range/Units 05:45 Sodium 140 (137-145) mmol/L Potassium 3.9 (3.6-5.0) mmol/L Chloride 99.1 (98-107) mmol/L Carbon Dioxide 23 (22-30) mmol/L BUN 96 H (9-20) mg/dL Creatinine 10.8 H (0.8-1.3) mg/dL Glucose 124 H (75-100) mg/dL Calcium 8.7 (8.4-10.2) mg/dL
[2021-01-23] MEDS: EPOETIN ALFA-EPBX 10,000 UNIT/1 ML VIAL SUB-Q PRN (12:26)
--- NOTE | 2021-01-23 13:34 | Progress Note ---
Assessment and Plan Assessment: * ESRD previouasly on peritoneal dialysis; now on back up HD (on peritoneal dialysis for 2 years) * Small bowel obstruction --s/p ex-lap with jejuno-ileal anastamosis --s/p ex lap with extensive lysis of adhesions and two small bowel resections with primary anastamosis for SBO with necrotic segment small bowel. --s/p ex lap, resection of perforated anastamosis, washout and abthera wound vac placement. --s/p ex lap with right hemicolectomy. * Acute respiratory failure * Septic shock - resolved * Bacteremia - resolved * Hyperkalemia * Anemia of ESRD * Atrial fibrilation, new onset * Post op ileus Plan: * Continue HD MWF via left IJ permcath (12/27) * 3K bath with dialysis * UF as tolerated * Epogen 10k units w/ dialysis * Rate control per cardiology * Abx per primary team/ID * Nutrition per primary team * Maintatin MAP >65 * Surgery notes appreciated * He will also require outpatient hemodialysis chair prior to discharge * Most likely secondary to catabolic state. Dialysis time was increased to 4 hours. Subjective Date of service: 01/23/21 Principal diagnosis: Ac hypoxemic resp failure; Severe Sepsis; Peritonitis; Acute SBO; ESRD; CHF Interval history: resting in bed event noted Objective - Exam Narrative Exam: - General Limitations: Physical Limitation General appearance: alert, in no apparent distress - Head Head exam: Present: atraumatic, normocephalic - Eye Eye exam: Present: normal appearance, EOMI - ENT ENT exam: Present: mucous membranes moist - Neck Neck exam: Present: normal inspection - Respiratory Respiratory exam: Present: normal lung sounds bilaterally. Absent: respiratory distress - Cardiovascular Cardiovascular Exam: Present: normal rhythm, tachycardia - GI/Abdominal GI/Abdominal exam: Present: soft, distended (slightly), tenderness (periumbilical ) - Extremities Exam Extremities exam: Present: normal inspection - Neurological Exam Neurological exam: Present: alert, oriented X3 - Psychiatric Psychiatric exam: Present: normal affect, normal mood - Skin Skin exam: Present: warm, dry, intact, normal color - Vital Signs Vital signs: Vital Signs - 12hr 01/23/21 01/23/21 01/23/21 01:49 02:00 04:00 Temperature 98.9 F Pulse Rate 64 70 63 Pulse Rate [ 67 From Monitor] Respiratory 14 20 Rate Blood Pressure 131/70 133/78 126/66 O2 Sat by Pulse 98 Oximetry 01/23/21 01/23/21 01/23/21 06:00 08:00 09:25 Temperature 98.4 F 98.9 F Pulse Rate 74 66 87 Pulse Rate [ 67 From Monitor] Respiratory 19 13 19 Rate Blood Pressure 147/69 147/69 147/81 O2 Sat by Pulse 98 Oximetry 01/23/21 01/23/21 01/23/21 09:30 09:45 10:00 Temperature Pulse Rate 72 86 82 Pulse Rate [ From Monitor] Respiratory Rate Blood Pressure 148/78 125/58 140/65 O2 Sat by Pulse Oximetry 01/23/21 01/23/21 01/23/21 10:15 10:30 10:45 Temperature Pulse Rate 84 84 89 Pulse Rate [ From Monitor] Respiratory Rate Blood Pressure 122/64 119/62 111/53 O2 Sat by Pulse Oximetry 01/23/21 01/23/21 01/23/21 11:00 11:15 11:30 Temperature Pulse Rate 89 84 89 Pulse Rate [ From Monitor] Respiratory Rate Blood Pressure 104/56 107/54 115/52 O2 Sat by Pulse Oximetry 01/23/21 01/23/21 01/23/21 11:45 12:00 12:15 Temperature 97.9 F Pulse Rate 74 79 89 Pulse Rate [ From Monitor] Respiratory Rate Blood Pressure 106/53 114/52 140/62 O2 Sat by Pulse Oximetry 01/23/21 01/23/21 01/23/21 12:30 12:45 13:00 Temperature Pulse Rate 79 74 74 Pulse Rate [ From Monitor] Respiratory Rate Blood Pressure 128/59 111/57 122/64 O2 Sat by Pulse Oximetry - Lab 01/20/21 03:35 01/23/21 05:45 Most recent lab results ABG pH 7.345 pH Units (7.350-7.450) L 01/07/21 17:14 ABG pCO2 40.3 mm Hg 01/07/21 17:14 ABG pO2 67.4 mm Hg (80.0-90.0) L 01/07/21 17:14 ABG HCO3 21.5 mmol/L (20.0-26.0) 01/07/21 17:14 ABG O2 Saturation 94.3 % (95.0-99.0) L 01/07/21 17:14 Calcium 8.7 mg/dL (8.4-10.2) 01/23/21 05:45 Phosphorus 2.60 mg/dL (2.5-4.5) 01/23/21 05:45 Magnesium 2.50 mg/dL (1.7-2.3) H 01/23/21 05:45 Medications & Allergies - Medications Allergies/Adverse Reactions: Allergies No Known Allergies Allergy (Verified 06/09/20 15:27) Home Medications: Home Medications Medication Instructions Recorded Confirmed Last Taken Type Albuterol Mdi (or & Nicu Only) 2 puff IH QID PRN #1 inhalation 04/01/17 11/01/20 10/31/20 09:00 Rx [ProAir HFA Inhaler] Calcium Acetate 667 mg PO DAILY 04/20/20 11/01/20 10/31/20 09:00 History Centrum Men's Tablet 1 tab PO DAILY 04/20/20 11/01/20 10/31/20 09:00 History Cinacalcet 30 mg PO DAILY 04/20/20 11/01/20 10/31/20 09:00 History Dialyvite with Zinc Tablet 1 tab PO DAILY 04/20/20 11/01/20 10/31/20 09:00 His tory Magnesium 250 mg PO BID 04/20/20 11/01/20 10/31/20 17:00 History Triamcinolone 0.1% 1 1000units TRANSDERMA DAILY 04/20/20 11/01/20 10/31/20 09:00 History Vit B12/Folic Acid/B6/Aa No.15 1,000 mg PO DAILY 04/20/20 11/01/20 10/31/20 09:00 History amLODIPine 10 mg PO DAILY 06/09/20 11/01/20 10/31/20 09:00 History AtorvaSTATin 40 mg PO HS 11/01/20 11/01/20 10/31/20 21:00 History Benadryl 25 mg PO HS 11/01/20 11/01/20 10/31/20 21:00 History Diclofenac 1 TRANSDERMA QID 11/01/20 10/31/20 19:00 History Fluticasone Propionate 1 spray INTRANASAL DAILY 11/01/20 11/01/20 10/31/20 09:00 History Vitamin D3 2,000 units 11/01/20 10/31/20 09:00 History carvediloL 12.5 mg PO DAILY 11/01/20 11/01/20 10/31/20 09:00 History hydrALAZINE 100 mg PO TID 11/01/20 11/01/20 10/31/20 19:00 History Active Medications: Generic Name Dose Route Start Last Admin Trade Name Freq PRN Reason Stop Dose Admin Acetaminophen 650 mg 12/31/20 15:30 01/21/21 05:28 Acetaminophen 650 Mg Rect Supp [place] 650 mg Q6H PRN Administration Non Cardiac Pain or Temp>100.5 Clonidine HCl 0.2 mg 01/11/21 10:00 01/18/21 10:11 Clonidine Tts 0.2 Mg/24 Hr Patch TD 0.2 mg We THOMAS Administration Dextrose 50 ml 01/14/21 17:59 01/18/21 15:10 Dextrose 50% In Water (25gm) 50 Ml Syringe IV 20 ml Q30MIN PRN Administration Hypoglycemia Protocol Digoxin 0.125 mg 01/09/21 12:00 01/21/21 13:15 Digoxin 0.5 Mg/2 Ml Inj IV 0.125 mg Q48H THOMAS Administration Diphenhydramine HCl 50 mg 01/20/21 10:10 01/23/21 09:50 Diphenhydramine 50 Mg/Ml Vial IV 50 mg Q6H PRN Administration Itching Famotidine 10 mg 12/24/20 13:00 01/23/21 09:50 Famotidine 20 Mg/2 Ml Inj IV 10 mg BID THOMAS Administration Haloperidol Lactate 5 mg 12/29/20 14:16 01/22/21 23:56 Haloperidol Lactate 5 Mg/1 Ml Inj IV 5 mg Q12H PRN Administration Agitation Heparin Sodium (Porcine) 5,000 unit 12/24/20 10:00 01/22/21 21:24 Heparin 5,000 Unit/1 Ml Vial SUB-Q 5,000 unit Q12HR THOMAS Administration Hydralazine HCl 10 mg 01/10/21 14:00 01/23/21 13:00 Hydralazine 20 Mg/1 Ml Inj IV Not Given Q4HR THOMAS Hydromorphone HCl 0.25 mg 01/09/21 10:53 01/23/21 09:49 Hydromorphone 1 Mg/1 Ml Inj IV 0.25 mg Q6H PRN Administration Pain , Severe (7-10) Hydrophilic Ointment 1 applic 12/31/20 06:39 01/11/21 21:28 Lip Therapy Vaseline TP 1 applic Q2HR PRN Administration Dry Lips Piperacillin Sod/Tazobactam Sod 2.25 gm in 50 mls @ 100 mls/hr 01/13/21 12:00 01/23/21 03:53 Zosyn/Ns 2.25 Gm/50ml IV 01/24/21 20:29 100 mls/hr Q8H [facility] Administration Protocol Sodium Chloride 100 mls @ 999 mls/hr 01/19/21 09:30 Nacl 0.9% IV [place] PRN Hypotension Octreotide Acetate 100 mcg/ 101 mls @ 200 mls/hr 01/21/21 15:00 01/22/21 22:15 Sodium Chloride IV 200 mls/hr Q8H [facility] Administration Amino Acids/Electrolytes/Dextrose 2,016 mls @ 84 mls/hr 01/22/21 20:00 01/22/21 20:26 Tpn Adult IV 01/23/21 19:59 84 mls/hr [email or web address] [facility] Administration Protocol Amino Acids/Electrolytes/Dextrose 2,016 mls @ 84 mls/hr 01/23/21 20:00 Tpn Adult IV 01/24/21 19:59 DAILY@[email or web address] [facility] Protocol Fat Emulsion Intravenous 250 mls @ 21 mls/hr 01/23/21 20:00 Intralipid 20% IV 01/24/21 08:00 [email or web address] [facility] Insulin Glargine 5 units 01/18/21 22:00 01/22/21 21:25 Insulin Glargine 100 Units/Ml SUB-Q 5 units QHS [facility] Administration Insulin Human Lispro 0 unit 01/03/21 12:00 01/23/21 13:00 Insulin Lispro 100 Unit/Ml SUB-Q Not Given Q6HR [facility] Protocol Metoprolol Tartrate 5 mg 12/30/20 12:00 01/23/21 13:00 Metoprolol Tartrate 5 Mg/5 Ml Inj IV Not Given Q4HR [facility] Multi-Ingred Cream/Lotion/Oil/Oint 1 applic 12/31/20 06:39 Mineral Oil/Petrolatum, White Ophth Oint 3.5 Gm OU Q4HR PRN Dry Eye(s) Scopolamine 1 each 01/15/21 11:00 01/21/21 10:12 Scopolamine Transdermal Patch 72 Hr TD 1 each Q3D THOMAS Administration Sodium Chloride 10 ml 12/22/20 22:00 01/22/21 21:33 Sodium Chloride 0.9% 10 Ml Flush Syringe IV 10 ml BID THOMAS Administration Sodium Chloride 10 ml 12/22/20 19:42 01/09/21 17:27 Sodium Chloride 0.9% 10 Ml Flush Syringe IV 10 ml PRN PRN Administration LINE FLUSH
[2021-01-23] MEDS: DIGOXIN 0.5 MG/2 ML INJ IV SCH (15:19)
[2021-01-23] MEDS: HEPARIN 5,000 UNIT/1 ML VIAL SUB-Q SCH ×2 (15:19→21:01)
[2021-01-23] MEDS: OCTREOTIDE 100 MCG in SODIUM CHLORIDE 0.9% 100 ML IV SCH ×3 (15:19→22:54)
[2021-01-23] MEDS ORDERED: TOTAL PARENTERAL NUTRITION 2,016 ML IV SCH (20:00)
[2021-01-23] MEDS ORDERED: FAT EMULSIONS 20% 250 ML IV SCH (20:00)
[2021-01-23] MEDS: INSULIN GLARGINE 100 UNITS/ML SUB-Q SCH (21:03)
[2021-01-24] MEDS: INSULIN LISPRO 100 UNIT/ML SUB-Q SCH ×4 (00:30→17:11)
[2021-01-24] MEDS: hydrALAZINE 20 MG/1 ML INJ IV SCH ×6 (02:07→22:17)
[2021-01-24] MEDS: HYDROmorphone 1 MG/1 ML INJ IV PRN ×2 (02:20→10:00)
[2021-01-24] MEDS: diphenhydrAMINE 50 MG/ML VIAL IV PRN (02:21)
[2021-01-24] MEDS: METOPROLOL TARTRATE 5 MG/5 ML INJ IV SCH ×6 (02:21→22:18)
[2021-01-24] MEDS: PIPERACIL-TAZO 2.25 GM/50 ML 2.25 GM/50 ML BAG IV SCH ×3 (04:32→20:33)
[2021-01-24 05:26] LABS: Calcium 8.4 mg/dL (8.4-10.2)
[2021-01-24] MEDS: OCTREOTIDE 100 MCG in SODIUM CHLORIDE 0.9% 100 ML IV SCH ×3 (06:16→23:20)
[2021-01-24] MEDS: FAMOTIDINE 20 MG/2 ML INJ IV SCH ×2 (10:01→22:18)
[2021-01-24] MEDS: SCOPOLAMINE TRANSDERMAL PATCH 72 HR TD SCH (10:01)
[2021-01-24] MEDS: HEPARIN 5,000 UNIT/1 ML VIAL SUB-Q SCH ×2 (10:01→22:17)
--- NOTE | 2021-01-24 10:11 | Progress Note ---
Assessment and Plan This is a 60 YO Male with ESRD on PD, GERD, Crohn's Disease, Nicotine Dependence, HTN, Systolic CHF(EF 35%) who presented to the emergency department on 12/22 with complaints of abdominal pain which began shortly after eating fast food rated 10/10 which is periumbilical, constant, associated with fever, nausea and multiple sites of vomiting and self-reported inability to undergo PD. In the emergency room patient underwent a CT scan of the abdomen/pelvis which revealed evidence of partial small bowel obstruction, symptoms were consistent with bacterial peritonitis. Patient was admitted to the hospital service with sepsis, peritonitis, and small bowel obstruction with consults to general surgery, nephrology, infectious disease and [facility]. On 01/06/21 the patient underwent an exploratory laparotomy, jejunal colonic anastomosis, and segmental small bowel resection. atient sleeping on room air. O2 saturation 98%. No acute respiratory distress. ABG's (01/07/21): pH 7.345 pH POC ABG pCO2 41.4 mmHg ABG pCO2 40.3 mm Hg POC ABG pO2 94.5 mmHg ABG pO2 67.4 mm Hg POC ABG HCO3 22.7 ABG O2 Saturation 94.3 % Patient alert, awake . Patient is on room air. Sitting up in chair. No acute respiratory distress. I was told by nursing staff, patient vomited to day. Patient has NG tube placement for sucyion. Patient running low grade temp. Has leukocytosis. Blood pressure 173/73. Patient is on Clonadine and metoprol. Management as per primary care. Chest x-ray reported There is decreased inspiration compared to yesterday's exam. Hazy opacity in the right perihilar region and larger area of infiltration in the left lower lung appears stable given differences in the level of inspiration. No large pleural effusion or pneumothorax. Patient presently on zosyn, s/c heparin, famotidine Patient was seen in IMCU. I spent critical care time of 32 minutes, review the chart, examining the patient, review labs and xrays, talking to the nursing staff, respiratory therapy . - Patient Problems (1) Nicotine dependence Current Visit: Yes Status: Acute Qualifiers: Nicotine product type: cigarettes Substance use status: in withdrawal Qualified Code(s): F17.213 - Nicotine dependence, cigarettes, with withdrawal Plan to address problem: Counseled patient to stop smoking. (2) SOB (shortness of breath) Current Visit: No Status: Acute Plan to address problem: Improved. Patient resting on room air at this time. O2 saturation 93%. (3) Atrial fibrillation Current Visit: Yes Status: Acute Plan to address problem: Management as per cardiology. (4) CHF (congestive heart failure) Current Visit: No Status: Acute Qualifiers: Heart failure chronicity: chronic Plan to address problem: Management as per cardiology. (5) Small bowel obstruction Current Visit: Yes Status: Acute Plan to address problem: On 01/06/21 the patient underwent an exploratory laparotomy, jejunal colonic anastomosis, and segmental small bowel resection. Management as per surgery. Continue incentive spirometry (6) Small intestinal gangrene Current Visit: Yes Status: Acute Plan to address problem: On 01/06/21 the patient underwent an exploratory laparotomy, jejunal colonic anastomosis, and segmental small bowel resection. Management as per surgery. Continue incentive spirometry (7) Accelerated hypertension Current Visit: No Status: Acute Plan to address problem: Management as per primary care. (8) Acute on chronic kidney disease, stage 3 Current Visit: No Status: Acute Plan to address problem: Management as per nephrology. Subjective Date of service: 01/24/21 Principal diagnosis: Ac hypoxemic resp failure; Severe Sepsis; Peritonitis; Acute SBO; ESRD; CHF Interval history: This is a 60 YO Male with ESRD on PD, GERD, Crohn's Disease, Nicotine Dependence, HTN, Systolic CHF(EF 35%) who presented to the emergency department on 12/22 with complaints of abdominal pain which began shortly after eating fast food rated 10/10 which is periumbilical, constant, associated with fever, nausea and multiple sites of vomiting and self-reported inability to undergo PD. In the emergency room patient underwent a CT scan of the abdomen/pelvis which revealed evidence of partial small bowel obstruction, symptoms were consistent with bacterial peritonitis. Patient was admitted to the hospital service with sepsis, peritonitis, and small bowel obstruction with consults to general surgery, nephrology, infectious disease and [facility]. On 01/06/21 the patient underwent an exploratory laparotomy, jejunal colonic anastomosis, and segmental small bowel resection. Patient sleeping on room air. O2 saturation 98%. No acute respiratory distress. ABG's (01/07/21): pH 7.345 pH POC ABG pCO2 41.4 mmHg ABG pCO2 40.3 mm Hg POC ABG pO2 94.5 mmHg ABG pO2 67.4 mm Hg POC ABG HCO3 22.7 ABG O2 Saturation 94.3 % Patient alert, awake . Patient is on room air. Sitting up in chair. No acute respiratory distress. I was told by nursing staff, patient vomited to day. Patient has NG tube placement for sucyion. Patient running low grade temp. Has leukocytosis. Blood pressure 173/73. Patient is on Clonadine and metoprol. Management as per primary care. Chest x-ray reported There is decreased inspiration compared to yesterday's ex am. Hazy opacity in the right perihilar region and larger area of infiltration in the left lower lung appears stable given differences in the level of inspiration. No large pleural effusion or pneumothorax. Patient presently on zosyn, s/c heparin, famotidine Objective Vital Signs - 12hr 01/23/21 01/24/21 01/24/21 23:57 00:00 00:05 Temperature 100.0 F H Pulse Rate 53 L 70 68 Pulse Rate [ 68 From Monitor] Respiratory 22 15 Rate Blood Pressure 129/64 129/64 O2 Sat by Pulse 99 98 Oximetry 01/24/21 01/24/21 01/24/21 02:00 02:07 02:20 Temperature Pulse Rate 71 74 Pulse Rate [ From Monitor] Respiratory 17 20 Rate Blood Pressure 107/65 107/65 O2 Sat by Pulse 92 Oximetry 01/24/21 01/24/21 01/24/21 02:21 02:50 03:35 Temperature 99.0 F Pulse Rate 68 Pulse Rate [ From Monitor] Respiratory 16 Rate Blood Pressure 124/67 O2 Sat by Pulse Oximetry 01/24/21 01/24/21 01/24/21 04:00 06:00 06:16 Temperature Pulse Rate 67 70 72 Pulse Rate [ 67 From Monitor] Respiratory 15 13 Rate Blood Pressure 131/68 149/75 148/73 O2 Sat by Pulse 95 99 Oximetry 01/24/21 08:00 Temperature 98.9 F Pulse Rate 75 Pulse Rate [ 67 From Monitor] Respiratory 25 H Rate Blood Pressure 153/74 O2 Sat by Pulse 92 Oximetry Constitutional: no acute distress, alert, other (elderly male with normal respiratory effort at rest) Eyes: non-icteric ENT: oropharynx dry, oropharyngeal exudate pre Neck: supple, no lymphadenopathy, no JVD Effort: normal Ascultation: Bilateral: diminished breath sounds, rales, rhonchi Percussion: Bilateral: not dull Cardiovascular: regular rate and rhythm, other (S1,S2) Gastrointestinal: hypoactive bowel sounds, soft, non-tender, non-distended (protuberant), other (Midline abdominal incision ) Integumentary: other (Midline abdominal incision ) Extremities: no cyanosis, no edema, pulses normal, no ischemia or petechiae Neurologic: non-focal exam (grossly), pupils equal and round, CN II-XII normal Psychiatric: mood appropriate, affect normal CBC and BMP: 01/20/21 03:35 01/24/21 04:45 ABG, PT/INR, D-dimer: ABG ABG pH 7.345 pH Units (7.350-7.450) L 01/07/21 17:14 POC ABG pCO2 41.4 mmHg (32.0-48.0) 01/07/21 03:07 ABG pCO2 40.3 mm Hg 01/07/21 17:14 POC ABG pO2 94.5 mmHg (83-108) 01/07/21 03:07 ABG pO2 67.4 mm Hg (80.0-90.0) L 01/07/21 17:14 POC ABG HCO3 22.7 01/07/21 03:07 ABG O2 Saturation 94.3 % (95.0-99.0) L 01/07/21 17:14 PT/INR, D-dimer PT 16.9 Sec. (12.2-14.9) H 01/01/21 12:45 INR 1.39 (0.87-1.13) H 01/01/21 12:45 Abnormal lab findings: Abnormal Labs 12/22/20 12/22/20 12/22/20 14:38 14:38 14:38 WBC RBC Hgb 11.2 L Hct 35.0 L MCV MCHC RDW 16.7 H Plt Count Lymph % (Auto) [place] % (Auto) Lymph # (Auto) [place] # (Auto) Seg Neutrophils % Seg Neuts % (Manual) 94.0 H Lymphocytes % (Manual) 5.0 L Monocytes % (Manual) Seg Neutrophils # Seg Neutrophils # Man Lymphocytes # (Manual) 0.3 L Monocytes # (Manual) PT INR ABG pH POC ABG pCO2 POC ABG pO2 ABG pO2 ABG HCO3 ABG O2 Saturation ABG Base Excess ABG Hemoglobin ABG Oxyhemoglobin ABG Sodium ABG Potassium ABG Chloride ABG Glucose Oxyhemoglobin Sodium Potassium Chloride Carbon Dioxide BUN 58 H Creatinine 13.2 H Glucose 113 H POC Glucose Lactic Acid 3.60 H* Calcium Phosphorus Magnesium Total Bilirubin 1.30 H AST ALT Alkaline Phosphatase 155 H Total Protein Albumin Triglycerides Arterial Blood Glucose Arterial Blood Ionized Calcium Digoxin Crossmatch 12/22/20 12/22/20 12/23/20 16:26 17:47 05:22 WBC RBC Hgb Hct MCV MCHC RDW Plt Count Lymph % (Auto) [place] % (Auto) Lymph # (Auto) [place] # (Auto) Seg Neutrophils % Seg Neuts % (Manual) Lymphocytes % (Manual) Monocytes % (Manual) Seg Neutrophils # Seg Neutrophils # Man Lymphocytes # (Manual) Monocytes # (Manual) PT INR ABG pH POC ABG pCO2 POC ABG pO2 ABG pO2 ABG HCO3 ABG O2 Saturation ABG Base Excess ABG Hemoglobin ABG Oxyhemoglobin ABG Sodium ABG Potassium ABG Chloride ABG Glucose Oxyhemoglobin Sodium Potassium Chloride Carbon Dioxide BUN Creatinine Glucose POC Glucose Lactic Acid 2.80 H* 3.10 H* 2.30 H* Calcium Phosphorus Magnesium Total Bilirubin AST ALT Alkaline Phosphatase Total Protein Albumin Triglycerides Arterial Blood Glucose Arterial Blood Ionized Calcium Digoxin Crossmatch 12/23/20 12/23/20 12/23/20 05:22 05:22 06:35 WBC 12.1 H RBC Hgb 11.0 L Hct 33.7 L MCV MCHC RDW 16.9 H Plt Count Lymph % (Auto) [place] % (Auto) Lymph # (Auto) [place] # (Auto) Seg Neutrophils % Seg Neuts % (Manual) 93.0 H Lymphocytes % (Manual) 1.0 L Monocytes % (Manual) Seg Neutrophils # Seg Neutrophils # Man 11.3 H Lymphocytes # (Manual) 0.1 L Monocytes # (Manual) PT INR ABG pH POC ABG pCO2 POC ABG pO2 ABG pO2 ABG HCO3 ABG O2 Saturation ABG Base Excess ABG Hemoglobin ABG Oxyhemoglobin ABG Sodium ABG Potassium ABG Chloride ABG Glucose Oxyhemoglobin Sodium Potassium 5.7 H D Chloride Carbon Dioxide BUN 73 H Creatinine 14.2 H Glucose POC Glucose Lactic Acid 2.30 H* Calcium 7.9 L Phosphorus Magnesium Total Bilirubin 1.40 H AST 119 H ALT 130 H Alkaline Phosphatase 183 H Total Protein 6.1 L Albumin 3.6 L Triglycerides Arterial Blood Glucose Arterial Blood Ionized Calcium Digoxin Crossmatch 12/23/20 12/23/20 12/23/20 11:40 13:53 16:47 WBC RBC Hgb 10.0 L Hct 30.4 L MCV MCHC RDW Plt Count Lymph % (Auto) [place] % (Auto) Lymph # (Auto) [place] # (Auto) Seg Neutrophils % Seg Neuts % (Manual) Lymphocytes % (Manual) Monocytes % (Manual) Seg Neutrophils # Seg Neutrophils # Man Lymphocytes # (Manual) Monocytes # (Manual) PT INR ABG pH POC ABG pCO2 POC ABG pO2 137.5 H ABG pO2 ABG HCO3 ABG O2 Saturation ABG Base Excess ABG Hemoglobin 9.7 L ABG Oxyhemoglobin ABG Sodium 134.1 L ABG Potassium 6.6 H ABG Chloride ABG Glucose 103 H Oxyhemoglobin Sodium Potassium Chloride Carbon Dioxide BUN Creatinine Glucose POC Glucose Lactic Acid Calcium Phosphorus Magnesium Total Bilirubin AST ALT Alkaline Phosphatase Total Protein Albumin Triglycerides Arterial Blood Glucose 103 H Arterial Blood Ionized Calcium 3.8 L Digoxin Crossmatch See Detail 12/23/20 12/23/20 12/24/20 20:35 20:40 01:20 WBC RBC Hgb Hct MCV MCHC RDW Plt Count Lymph % (Auto) [place] % (Auto) Lymph # (Auto) [place] # (Auto) Seg Neutrophils % Seg Neuts % (Manual) Lymphocytes % (Manual) Monocytes % (Manual) Seg Neutrophils # Seg Neutrophils # Man Lymphocytes # (Manual) Monocytes # (Manual) PT INR ABG pH 7.252 L POC ABG pCO2 POC ABG pO2 ABG pO2 50.1 L ABG HCO3 ABG O2 Saturation 81.1 L ABG Base Excess -5.9 L ABG Hemoglobin 12.1 L ABG Oxyhemoglobin ABG Sodium ABG Potassium ABG Chloride ABG Glucose Oxyhemoglobin 78.6 L Sodium 134 L Potassium 6.9 H* D 6.3 H* Chloride Carbon Dioxide 18 L 20 L BUN 87 H 91 H Creatinine 15.3 H 15.3 H Glucose 103 H POC Glucose Lactic Acid Calcium 6.9 L 7.5 L Phosphorus Magnesium Total Bilirubin AST ALT Alkaline Phosphatase Total Protein Albumin Triglycerides Arterial Blood Glucose Arterial Blood Ionized Calcium Digoxin Crossmatch 12/24/20 12/24/20 12/24/20 04:00 10:29 10:29 WBC RBC 3.49 L Hgb 10.5 L Hct 31.2 L MCV MCHC RDW 17.5 H Plt Count 124 L Lymph % (Auto) 3.7 L [place] % (Auto) 9.8 H Lymph # (Auto) 0.2 L [place] # (Auto) Seg Neutrophils % 85.9 H Seg Neuts % (Manual) Lymphocytes % (Manual) Monocytes % (Manual) Seg Neutrophils # Seg Neutrophils # Man Lymphocytes # (Manual) Monocytes # (Manual) PT INR ABG pH POC ABG pCO2 28.1 L POC ABG pO2 ABG pO2 ABG HCO3 ABG O2 Saturation ABG Base Excess ABG Hemoglobin ABG Oxyhemoglobin ABG Sodium 133.9 L ABG Potassium 5.3 H ABG Chloride 108.0 H ABG Glucose Oxyhemoglobin Sodium Potassium 5.6 H Chloride Carbon Dioxide 19 L BUN 99 H Creatinine 16.9 H Glucose 52 L POC Glucose Lactic Acid Calcium 7.6 L Phosphorus Magnesium Total Bilirubin 3.50 H AST 67 H ALT 71 H Alkaline Phosphatase Total Protein 3.5 L D Albumin 2.1 L Triglycerides Arterial Blood Glucose Arterial Blood Ionized Calcium 4.0 L Digoxin Crossmatch 12/25/20 12/25/20 12/25/20 03:33 04:00 04:00 WBC 3.8 L RBC 2.90 L Hgb 8.6 L Hct 25.7 L MCV MCHC RDW 16.7 H Plt Count 113 L Lymph % (Auto) [place] % (Auto) Lymph # (Auto) [place] # (Auto) Seg Neutrophils % Seg Neuts % (Manual) Lymphocytes % (Manual) Monocytes % (Manual) Seg Neutrophils # Seg Neutrophils # Man Lymphocytes # (Manual) Monocytes # (Manual) PT INR ABG pH 7.544 H POC ABG pCO2 28.2 L POC ABG pO2 62.8 L ABG pO2 ABG HCO3 ABG O2 Saturation ABG Base Excess ABG Hemoglobin 9.3 L ABG Oxyhemoglobin 93.0 L ABG Sodium 130.3 L ABG Potassium ABG Chloride ABG Glucose 97 H Oxyhemoglobin Sodium Potassium Chloride Carbon Dioxide BUN 62 H Creatinine 11.4 H Glucose POC Glucose Lactic Acid Calcium 7.7 L Phosphorus 5.00 H Magnesium Total Bilirubin AST ALT Alkaline Phosphatase Total Protein Albumin Triglycerides Arterial Blood Glucose 97 H Arterial Blood Ionized Calcium 3.9 L Digoxin Crossmatch 12/26/20 12/26/20 12/27/20 04:46 Unknown 03:40 WBC 4.1 L RBC 2.61 L Hgb 7.8 L Hct 23.4 L MCV MCHC RDW 17.1 H Plt Count 119 L Lymph % (Auto) 5.3 L [place] % (Auto) 10.6 H Lymph # (Auto) 0.2 L [place] # (Auto) Seg Neutrophils % 78.8 H Seg Neuts % (Manual) Lymphocytes % (Manual) Monocytes % (Manual) Seg Neutrophils # Seg Neutrophils # Man Lymphocytes # (Manual) Monocytes # (Manual) PT INR ABG pH 7.333 L 7.332 L POC ABG pCO2 POC ABG pO2 ABG pO2 ABG HCO3 26.9 H ABG O2 Saturation ABG Base Excess -2.4 L ABG Hemoglobin 6.8 L 7.2 L ABG Oxyhemoglobin ABG Sodium ABG Potassium ABG Chloride ABG Glucose Oxyhemoglobin 93.0 L 93.1 L Sodium Potassium Chloride Carbon Dioxide BUN Creatinine Glucose POC Glucose Lactic Acid Calcium Phosphorus Magnesium Total Bilirubin AST ALT Alkaline Phosphatase Total Protein Albumin Triglycerides Arterial Blood Glucose Arterial Blood Ionized Calcium Digoxin Crossmatch 12/27/20 12/27/20 12/27/20 06:40 06:40 11:22 WBC 4.4 L RBC 2.49 L Hgb 7.4 L Hct 22.4 L MCV MCHC RDW 17.1 H Plt Count 111 L Lymph % (Auto) 6.7 L [place] % (Auto) 12.6 H Lymph # (Auto) 0.3 L [place] # (Auto) Seg Neutrophils % 77.6 H Seg Neuts % (Manual) Lymphocytes % (Manual) Monocytes % (Manual) Seg Neutrophils # Seg Neutrophils # Man Lymphocytes # (Manual) Monocytes # (Manual) PT INR ABG pH POC ABG pCO2 POC ABG pO2 ABG pO2 ABG HCO3 ABG O2 Saturation ABG Base Excess ABG Hemoglobin ABG Oxyhemoglobin ABG Sodium ABG Potassium ABG Chloride ABG Glucose Oxyhemoglobin Sodium Potassium Chloride Carbon Dioxide BUN 64 H Creatinine 9.8 H Glucose 147 H POC Glucose 134 H Lactic Acid Calcium 8.3 L Phosphorus 5.00 H Magnesium Total Bilirubin 3.70 H AST 72 H ALT Alkaline Phosphatase 142 H Total Protein 5.1 L D Albumin 2.9 L Triglycerides Arterial Blood Glucose Arterial Blood Ionized Calcium Digoxin Crossmatch 12/27/20 12/27/20 12/28/20 17:29 23:31 03:09 WBC RBC Hgb Hct MCV MCHC RDW Plt Count Lymph % (Auto) [place] % (Auto) Lymph # (Auto) [place] # (Auto) Seg Neutrophils % Seg Neuts % (Manual) Lymphocytes % (Manual) Monocytes % (Manual) Seg Neutrophils # Seg Neutrophils # Man Lymphocytes # (Manual) Monocytes # (Manual) PT INR ABG pH 7.474 H POC ABG pCO2 POC ABG pO2 ABG pO2 ABG HCO3 ABG O2 Saturation ABG Base Excess ABG Hemoglobin 7.8 L ABG Oxyhemoglobin ABG Sodium ABG Potassium ABG Chloride ABG Glucose Oxyhemoglobin Sodium Potassium Chloride Carbon Dioxide BUN Creatinine Glucose POC Glucose 121 H 131 H Lactic Acid Calcium Phosphorus Magnesium Total Bilirubin AST ALT Alkaline Phosphatase Total Protein Albumin Triglycerides Arterial Blood Glucose Arterial Blood Ionized Calcium Digoxin Crossmatch 12/28/20 12/28/20 12/28/20 05:37 05:40 05:40 WBC 4.3 L RBC 2.40 L Hgb 7.2 L Hct 21.5 L MCV MCHC RDW 17.4 H Plt Count 112 L Lymph % (Auto) 6.5 L [place] % (Auto) 16.7 H Lymph # (Auto) 0.3 L [place] # (Auto) Seg Neutrophils % 71.1 H Seg Neuts % (Manual) Lymphocytes % (Manual) Monocytes % (Manual) Seg Neutrophils # Seg Neutrophils # Man Lymphocytes # (Manual) Monocytes # (Manual) PT INR ABG pH POC ABG pCO2 POC ABG pO2 ABG pO2 ABG HCO3 ABG O2 Saturation ABG Base Excess ABG Hemoglobin ABG Oxyhemoglobin ABG Sodium ABG Potassium ABG Chloride ABG Glucose Oxyhemoglobin Sodium Potassium Chloride Carbon Dioxide BUN 85 H Creatinine 11.5 H Glucose 132 H POC Glucose 121 H Lactic Acid Calcium 8.2 L Phosphorus Magnesium 2.40 H Total Bilirubin 3.80 H AST 70 H ALT Alkaline Phosphatase 176 H Total Protein 5.0 L Albumin 2.9 L Triglycerides Arterial Blood Glucose Arterial Blood Ionized Calcium Digoxin Crossmatch 12/28/20 12/28/20 12/28/20 11:34 15:00 17:35 WBC RBC Hgb Hct MCV MCHC RDW Plt Count Lymph % (Auto) [place] % (Auto) Lymph # (Auto) [place] # (Auto) Seg Neutrophils % Seg Neuts % (Manual) Lymphocytes % (Manual) Monocytes % (Manual) Seg Neutrophils # Seg Neutrophils # Man Lymphocytes # (Manual) Monocytes # (Manual) PT INR ABG pH 7.461 H POC ABG pCO2 POC ABG pO2 72.2 L ABG pO2 ABG HCO3 ABG O2 Saturation ABG Base Excess ABG Hemoglobin 8.2 L ABG Oxyhemoglobin 93.6 L ABG Sodium 134.1 L ABG Potassium 3.2 L ABG Chloride ABG Glucose 135 H Oxyhemoglobin Sodium Potassium Chloride Carbon Dioxide BUN Creatinine Glucose POC Glucose 137 H 144 H Lactic Acid Calcium Phosphorus Magnesium Total Bilirubin AST ALT Alkaline Phosphatase Total Protein Albumin Triglycerides Arterial Blood Glucose 135 H Arterial Blood Ionized Calcium 4.4 L Digoxin Crossmatch 12/28/20 12/28/20 12/29/20 19:44 Unknown 00:21 WBC RBC Hgb Hct MCV MCHC RDW Plt Count Lymph % (Auto) [place] % (Auto) Lymph # (Auto) [place] # (Auto) Seg Neutrophils % Seg Neuts % (Manual) Lymphocytes % (Manual) Monocytes % (Manual) Seg Neutrophils # Seg Neutrophils # Man Lymphocytes # (Manual) Monocytes # (Manual) PT INR ABG pH 7.474 H POC ABG pCO2 POC ABG pO2 ABG pO2 ABG HCO3 ABG O2 Saturation ABG Base Excess ABG Hemoglobin 7.8 L ABG Oxyhemoglobin ABG Sodium 133.2 L ABG Potassium ABG Chloride ABG Glucose 139 H Oxyhemoglobin Sodium 135 L Potassium Chloride 96.6 L Carbon Dioxide BUN 47 H Creatinine 7.4 H Glucose 130 H POC Glucose 142 H Lactic Acid Calcium 8.3 L Phosphorus Magnesium Total Bilirubin AST ALT Alkaline Phosphatase Total Protein Albumin Triglycerides Arterial Blood Glucose 139 H Arterial Blood Ionized Calcium 4.3 L Digoxin Crossmatch 12/29/20 12/29/20 12/29/20 05:16 05:16 05:26 WBC RBC 2.53 L Hgb 7.7 L Hct 22.8 L MCV MCHC RDW 17.0 H Plt Count 130 L Lymph % (Auto) [place] % (Auto) Lymph # (Auto) [place] # (Auto) Seg Neutrophils % Seg Neuts % (Manual) 79.0 H Lymphocytes % (Manual) 9.0 L Monocytes % (Manual) Seg Neutrophils # Seg Neutrophils # Man Lymphocytes # (Manual) 0.6 L Monocytes # (Manual) PT INR ABG pH POC ABG pCO2 POC ABG pO2 ABG pO2 ABG HCO3 ABG O2 Saturation ABG Base Excess ABG Hemoglobin ABG Oxyhemoglobin ABG Sodium ABG Potassium ABG Chloride ABG Glucose Oxyhemoglobin Sodium Potassium 3.4 L Chloride 96.6 L Carbon Dioxide BUN 59 H Creatinine 8.3 H Glucose 127 H POC Glucose 141 H Lactic Acid Calcium 8.2 L Phosphorus Magnesium Total Bilirubin 3.00 H AST 88 H ALT Alkaline Phosphatase 188 H Total Protein 5.1 L Albumin 2.8 L Triglycerides Arterial Blood Glucose Arterial Blood Ionized Calcium Digoxin Crossmatch 12/29/20 12/29/20 12/29/20 11:33 17:29 23:22 WBC RBC Hgb Hct MCV MCHC RDW Plt Count Lymph % (Auto) [place] % (Auto) Lymph # (Auto) [place] # (Auto) Seg Neutrophils % Seg Neuts % (Manual) Lymphocytes % (Manual) Monocytes % (Manual) Seg Neutrophils # Seg Neutrophils # Man Lymphocytes # (Manual) Monocytes # (Manual) PT INR ABG pH POC ABG pCO2 POC ABG pO2 ABG pO2 ABG HCO3 ABG O2 Saturation ABG Base Excess ABG Hemoglobin ABG Oxyhemoglobin ABG Sodium ABG Potassium ABG Chloride ABG Glucose Oxyhemoglobin Sodium Potassium Chloride Carbon Dioxide BUN Creatinine Glucose POC Glucose 144 H 130 H 117 H Lactic Acid Calcium Phosphorus Magnesium Total Bilirubin AST ALT Alkaline Phosphatase Total Protein Albumin Triglycerides Arterial Blood Glucose Arterial Blood Ionized Calcium Digoxin Crossmatch 12/30/20 12/30/20 12/30/20 05:23 08:15 09:00 WBC RBC Hgb Hct MCV MCHC RDW Plt Count Lymph % (Auto) [place] % (Auto) Lymph # (Auto) [place] # (Auto) Seg Neutrophils % Seg Neuts % (Manual) Lymphocytes % (Manual) Monocytes % (Manual) Seg Neutrophils # Seg Neutrophils # Man Lymphocytes # (Manual) Monocytes # (Manual) PT INR ABG pH POC ABG pCO2 POC ABG pO2 ABG pO2 ABG HCO3 ABG O2 Saturation ABG Base Excess ABG Hemoglobin ABG Oxyhemoglobin ABG Sodium ABG Potassium ABG Chloride ABG Glucose Oxyhemoglobin Sodium 135 L Potassium Chloride 95.9 L Carbon Dioxide BUN 85 H Creatinine 10.6 H Glucose 128 H POC Glucose 135 H 127 H Lactic Acid Calcium 8.3 L Phosphorus Magnesium Total Bilirubin 2.40 H AST 85 H ALT Alkaline Phosphatase 216 H Total Protein 5.3 L Albumin 2.6 L Triglycerides 155 H Arterial Blood Glucose Arterial Blood Ionized Calcium Digoxin Crossmatch 12/30/20 12/30/20 12/30/20 09:00 11:53 15:49 WBC RBC 2.61 L Hgb 7.8 L Hct 23.7 L MCV MCHC RDW 17.3 H Plt Count Lymph % (Auto) [place] % (Auto) Lymph # (Auto) [place] # (Auto) Seg Neutrophils % Seg Neuts % (Manual) Lymphocytes % (Manual) Monocytes % (Manual) Seg Neutrophils # Seg Neutrophils # Man Lymphocytes # (Manual) Monocytes # (Manual) PT INR ABG pH POC ABG pCO2 POC ABG pO2 ABG pO2 ABG HCO3 ABG O2 Saturation ABG Base Excess ABG Hemoglobin ABG Oxyhemoglobin ABG Sodium ABG Potassium ABG Chloride ABG Glucose Oxyhemoglobin Sodium Potassium Chloride Carbon Dioxide BUN Creatinine Glucose POC Glucose 155 H 146 H Lactic Acid Calcium Phosphorus Magnesium Total Bilirubin AST ALT Alkaline Phosphatase Total Protein Albumin Triglycerides Arterial Blood Glucose Arterial Blood Ionized Calcium Digoxin Crossmatch 12/30/20 12/30/20 12/31/20 17:53 23:45 03:56 WBC RBC Hgb Hct MCV MCHC RDW Plt Count Lymph % (Auto) [place] % (Auto) Lymph # (Auto) [place] # (Auto) Seg Neutrophils % Seg Neuts % (Manual) Lymphocytes % (Manual) Monocytes % (Manual) Seg Neutrophils # Seg Neutrophils # Man Lymphocytes # (Manual) Monocytes # (Manual) PT INR ABG pH POC ABG pCO2 POC ABG pO2 49.4 L ABG pO2 ABG HCO3 ABG O2 Saturation ABG Base Excess ABG Hemoglobin 10.3 L ABG Oxyhemoglobin 84.2 L ABG Sodium 133.1 L ABG Potassium ABG Chloride ABG Glucose 173 H Oxyhemoglobin Sodium Potassium Chloride Carbon Dioxide BUN Creatinine Glucose POC Glucose 139 H 173 H Lactic Acid Calcium Phosphorus Magnesium Total Bilirubin AST ALT Alkaline Phosphatase Total Protein Albumin Triglycerides Arterial Blood Glucose 173 H Arterial Blood Ionized Calcium Digoxin Crossmatch 12/31/20 12/31/20 12/31/20 05:07 06:51 06:51 WBC 20.3 H RBC 3.32 L Hgb 9.8 L Hct 30.3 L D MCV MCHC RDW 17.3 H Plt Count Lymph % (Auto) [place] % (Auto) Lymph # (Auto) [place] # (Auto) Seg Neutrophils % Seg Neuts % (Manual) 87.0 H Lymphocytes % (Manual) 10.0 L Monocytes % (Manual) Seg Neutrophils # Seg Neutrophils # Man 17.7 H Lymphocytes # (Manual) Monocytes # (Manual) PT INR ABG pH POC ABG pCO2 POC ABG pO2 ABG pO2 ABG HCO3 ABG O2 Saturation ABG Base Excess ABG Hemoglobin ABG Oxyhemoglobin ABG Sodium ABG Potassium ABG Chloride ABG Glucose Oxyhemoglobin Sodium Potassium 5.2 H D Chloride Carbon Dioxide BUN 62 H Creatinine 8.4 H Glucose 116 H POC Glucose 120 H Lactic Acid Calcium Phosphorus Magnesium 1.60 L Total Bilirubin AST ALT Alkaline Phosphatase Total Protein Albumin Triglycerides Arterial Blood Glucose Arterial Blood Ionized Calcium Digoxin Crossmatch 12/31/20 12/31/20 12/31/20 09:38 12:19 12:22 WBC RBC Hgb Hct MCV MCHC RDW Plt Count Lymph % (Auto) [place] % (Auto) Lymph # (Auto) [place] # (Auto) Seg Neutrophils % Seg Neuts % (Manual) Lymphocytes % (Manual) Monocytes % (Manual) Seg Neutrophils # Seg Neutrophils # Man Lymphocytes # (Manual) Monocytes # (Manual) PT INR ABG pH POC ABG pCO2 POC ABG pO2 ABG pO2 354.0 H ABG HCO3 ABG O2 Saturation 99.6 H ABG Base Excess ABG Hemoglobin 9.1 L ABG Oxyhemoglobin ABG Sodium ABG Potassium ABG Chloride ABG Glucose Oxyhemoglobin Sodium Potassium 5.2 H Chloride Carbon Dioxide BUN Creatinine Glucose POC Glucose 132 H Lactic Acid Calcium Phosphorus Magnesium Total Bilirubin AST ALT Alkaline Phosphatase Total Protein Albumin Triglycerides Arterial Blood Glucose Arterial Blood Ionized Calcium Digoxin Crossmatch 12/31/20 01/01/21 01/01/21 23:23 03:03 05:04 WBC RBC Hgb Hct MCV MCHC RDW Plt Count Lymph % (Auto) [place] % (Auto) Lymph # (Auto) [place] # (Auto) Seg Neutrophils % Seg Neuts % (Manual) Lymphocytes % (Manual) Monocytes % (Manual) Seg Neutrophils # Seg Neutrophils # Man Lymphocytes # (Manual) Monocytes # (Manual) PT INR ABG pH POC ABG pCO2 POC ABG pO2 79.6 L ABG pO2 ABG HCO3 ABG O2 Saturation ABG Base Excess ABG Hemoglobin 9.2 L ABG Oxyhemoglobin ABG Sodium 131.6 L ABG Potassium 5.8 H ABG Chloride ABG Glucose 177 H Oxyhemoglobin Sodium Potassium Chloride Carbon Dioxide BUN Creatinine Glucose POC Glucose 174 H 167 H Lactic Acid Calcium Phosphorus Magnesium Total Bilirubin AST ALT Alkaline Phosphatase Total Protein Albumin Triglycerides Arterial Blood Glucose 177 H Arterial Blood Ionized Calcium Digoxin Crossmatch 01/01/21 01/01/21 01/01/21 07:31 07:31 11:31 WBC 26.1 H RBC 2.95 L Hgb 8.6 L Hct 27.1 L MCV MCHC RDW 18.2 H Plt Count Lymph % (Auto) [place] % (Auto) Lymph # (Auto) [place] # (Auto) Seg Neutrophils % Seg Neuts % (Manual) 96.0 H Lymphocytes % (Manual) 4.0 L Monocytes % (Manual) Seg Neutrophils # Seg Neutrophils # Man 25.1 H Lymphocytes # (Manual) 1.0 L Monocytes # (Manual) PT INR ABG pH POC ABG pCO2 POC ABG pO2 ABG pO2 ABG HCO3 ABG O2 Saturation ABG Base Excess ABG Hemoglobin ABG Oxyhemoglobin ABG Sodium ABG Potassium ABG Chloride ABG Glucose Oxyhemoglobin Sodium Potassium 6.0 H Chloride Carbon Dioxide 21 L BUN 89 H Creatinine 10.5 H Glucose 179 H POC Glucose Lactic Acid Calcium Phosphorus Magnesium Total Bilirubin AST ALT Alkaline Phosphatase Total Protein Albumin Triglycerides Arterial Blood Glucose Arterial Blood Ionized Calcium Digoxin Crossmatch See Detail 01/01/21 01/01/21 01/01/21 11:51 12:45 16:52 WBC RBC Hgb Hct MCV MCHC RDW Plt Count Lymph % (Auto) [place] % (Auto) Lymph # (Auto) [place] # (Auto) Seg Neutrophils % Seg Neuts % (Manual) Lymphocytes % (Manual) Monocytes % (Manual) Seg Neutrophils # Seg Neutrophils # Man Lymphocytes # (Manual) Monocytes # (Manual) PT 16.9 H INR 1.39 H ABG pH POC ABG pCO2 POC ABG pO2 ABG pO2 ABG HCO3 ABG O2 Saturation ABG Base Excess ABG Hemoglobin ABG Oxyhemoglobin ABG Sodium ABG Potassium ABG Chloride ABG Glucose Oxyhemoglobin Sodium Potassium Chloride Carbon Dioxide BUN Creatinine Glucose POC Glucose 157 H 177 H Lactic Acid Calcium Phosphorus Magnesium Total Bilirubin AST ALT Alkaline Phosphatase Total Protein Albumin Triglycerides Arterial Blood Glucose Arterial Blood Ionized Calcium Digoxin Crossmatch 01/01/21 01/01/21 01/01/21 17:58 17:58 20:12 WBC 26.9 H RBC 3.14 L Hgb 9.3 L Hct 29.6 L MCV MCHC RDW 17.5 H Plt Count Lymph % (Auto) [place] % (Auto) Lymph # (Auto) [place] # (Auto) Seg Neutrophils % Seg Neuts % (Manual) 84.0 H Lymphocytes % (Manual) 4.0 L Monocytes % (Manual) 12.0 H Seg Neutrophils # Seg Neutrophils # Man 22.6 H Lymphocytes # (Manual) 1.1 L Monocytes # (Manual) 3.2 H PT INR ABG pH POC ABG pCO2 POC ABG pO2 ABG pO2 ABG HCO3 ABG O2 Saturation ABG Base Excess ABG Hemoglobin ABG Oxyhemoglobin ABG Sodium ABG Potassium ABG Chloride ABG Glucose Oxyhemoglobin Sodium 136 L Potassium 6.2 H* Chloride Carbon Dioxide 21 L BUN 92 H Creatinine 10.8 H Glucose 171 H POC Glucose 288 H Lactic Acid Calcium Phosphorus Magnesium Total Bilirubin 2.10 H AST 223 H ALT 100 H Alkaline Phosphatase 206 H Total Protein 4.8 L Albumin 1.9 L Triglycerides Arterial Blood Glucose Arterial Blood Ionized Calcium Digoxin Crossmatch 01/02/21 01/02/21 01/02/21 00:12 00:45 03:05 WBC RBC Hgb Hct MCV MCHC RDW Plt Count Lymph % (Auto) [place] % (Auto) Lymph # (Auto) [place] # (Auto) Seg Neutrophils % Seg Neuts % (Manual) Lymphocytes % (Manual) Monocytes % (Manual) Seg Neutrophils # Seg Neutrophils # Man Lymphocytes # (Manual) Monocytes # (Manual) PT INR ABG pH POC ABG pCO2 POC ABG pO2 81.8 L ABG pO2 ABG HCO3 ABG O2 Saturation ABG Base Excess ABG Hemoglobin 8.0 L ABG Oxyhemoglobin ABG Sodium 129.8 L ABG Potassium 5.4 H ABG Chloride ABG Glucose 257 H Oxyhemoglobin Sodium 136 L Potassium 5.8 H Chloride 96.6 L Carbon Dioxide BUN 95 H Creatinine 11.2 H Glucose 238 H POC Glucose 223 H Lactic Acid Calcium Phosphorus Magnesium Total Bilirubin AST ALT Alkaline Phosphatase Total Protein Albumin Triglycerides Arterial Blood Glucose 257 H Arterial Blood Ionized Calcium 4.0 L Digoxin Crossmatch 01/02/21 01/02/21 01/02/21 06:25 08:00 08:00 WBC 17.5 H RBC 2.31 L Hgb 6.7 L Hct 22.1 L D MCV 96 H MCHC 30 L RDW 18.4 H Plt Count Lymph % (Auto) [place] % (Auto) Lymph # (Auto) [place] # (Auto) Seg Neutrophils % Seg Neuts % (Manual) Lymphocytes % (Manual) Monocytes % (Manual) Seg Neutrophils # Seg Neutrophils # Man Lymphocytes # (Manual) Monocytes # (Manual) PT INR ABG pH POC ABG pCO2 POC ABG pO2 ABG pO2 ABG HCO3 ABG O2 Saturation ABG Base Excess ABG Hemoglobin ABG Oxyhemoglobin ABG Sodium ABG Potassium ABG Chloride ABG Glucose Oxyhemoglobin Sodium 134 L Potassium 5.3 H Chloride 92.9 L Carbon Dioxide BUN 101 H Creatinine 10.9 H Glucose 560 H* POC Glucose 239 H Lactic Acid Calcium 7.6 L Phosphorus 6.50 H Magnesium Total Bilirubin AST ALT Alkaline Phosphatase Total Protein Albumin Triglycerides Arterial Blood Glucose Arterial Blood Ionized Calcium Digoxin Crossmatch 01/02/21 01/02/21 01/02/21 11:26 15:00 17:57 WBC RBC Hgb Hct MCV MCHC RDW Plt Count Lymph % (Auto) [place] % (Auto) Lymph # (Auto) [place] # (Auto) Seg Neutrophils % Seg Neuts % (Manual) Lymphocytes % (Manual) Monocytes % (Manual) Seg Neutrophils # Seg Neutrophils # Man Lymphocytes # (Manual) Monocytes # (Manual) PT INR ABG pH POC ABG pCO2 POC ABG pO2 ABG pO2 ABG HCO3 ABG O2 Saturation ABG Base Excess ABG Hemoglobin ABG Oxyhemoglobin ABG Sodium ABG Potassium ABG Chloride ABG Glucose Oxyhemoglobin Sodium Potassium Chloride Carbon Dioxide BUN Creatinine Glucose 241 H POC Glucose 205 H 272 H Lactic Acid Calcium Phosphorus Magnesium Total Bilirubin AST ALT Alkaline Phosphatase Total Protein Albumin Triglycerides Arterial Blood Glucose Arterial Blood Ionized Calcium Digoxin Crossmatch 01/02/21 01/02/21 01/03/21 23:25 23:43 03:45 WBC RBC Hgb Hct MCV MCHC RDW Plt Count Lymph % (Auto) [place] % (Auto) Lymph # (Auto) [place] # (Auto) Seg Neutrophils % Seg Neuts % (Manual) Lymphocytes % (Manual) Monocytes % (Manual) Seg Neutrophils # Seg Neutrophils # Man Lymphocytes # (Manual) Monocytes # (Manual) PT INR ABG pH POC ABG pCO2 48.3 H POC ABG pO2 134.4 H 79.7 L ABG pO2 ABG HCO3 ABG O2 Saturation ABG Base Excess ABG Hemoglobin 7.7 L 8.6 L ABG Oxyhemoglobin ABG Sodium 131.8 L 130.4 L ABG Potassium ABG Chloride 97.0 L ABG Glucose 218 H 238 H Oxyhemoglobin Sodium Potassium Chloride Carbon Dioxide BUN Creatinine Glucose POC Glucose 218 H Lactic Acid Calcium Phosphorus Magnesium Total Bilirubin AST ALT Alkaline Phosphatase Total Protein Albumin Triglycerides Arterial Blood Glucose 218 H 238 H Arterial Blood Ionized Calcium 4.1 L 4.0 L Digoxin Crossmatch 01/03/21 01/03/21 01/03/21 04:37 04:37 05:39 WBC 15.2 H RBC 2.38 L Hgb 7.3 L Hct 21.6 L MCV MCHC RDW 16.6 H Plt Count Lymph % (Auto) [place] % (Auto) Lymph # (Auto) [place] # (Auto) Seg Neutrophils % Seg Neuts % (Manual) Lymphocytes % (Manual) Monocytes % (Manual) Seg Neutrophils # Seg Neutrophils # Man Lymphocytes # (Manual) Monocytes # (Manual) PT INR ABG pH POC ABG pCO2 POC ABG pO2 ABG pO2 ABG HCO3 ABG O2 Saturation ABG Base Excess ABG Hemoglobin ABG Oxyhemoglobin ABG Sodium ABG Potassium ABG Chloride ABG Glucose Oxyhemoglobin Sodium 136 L Potassium Chloride 94.5 L Carbon Dioxide BUN 69 H Creatinine 8.0 H Glucose 219 H POC Glucose 222 H Lactic Acid Calcium 7.8 L Phosphorus 4.80 H D Magnesium Total Bilirubin AST ALT Alkaline Phosphatase Total Protein Albumin Triglycerides Arterial Blood Glucose Arterial Blood Ionized Calcium Digoxin Crossmatch 01/03/21 01/03/21 01/03/21 11:29 18:49 23:37 WBC RBC Hgb Hct MCV MCHC RDW Plt Count Lymph % (Auto) [place] % (Auto) Lymph # (Auto) [place] # (Auto) Seg Neutrophils % Seg Neuts % (Manual) Lymphocytes % (Manual) Monocytes % (Manual) Seg Neutrophils # Seg Neutrophils # Man Lymphocytes # (Manual) Monocytes # (Manual) PT INR ABG pH POC ABG pCO2 POC ABG pO2 ABG pO2 ABG HCO3 ABG O2 Saturation ABG Base Excess ABG Hemoglobin ABG Oxyhemoglobin ABG Sodium ABG Potassium ABG Chloride ABG Glucose Oxyhemoglobin Sodium Potassium Chloride Carbon Dioxide BUN Creatinine Glucose POC Glucose 232 H 129 H 140 H Lactic Acid Calcium Phosphorus Magnesium Total Bilirubin AST ALT Alkaline Phosphatase Total Protein Albumin Triglycerides Arterial Blood Glucose Arterial Blood Ionized Calcium Digoxin Crossmatch 01/04/21 01/04/21 01/04/21 03:22 04:38 04:38 WBC 11.1 H RBC 2.89 L Hgb 8.9 L Hct 26.2 L MCV MCHC RDW 16.1 H Plt Count Lymph % (Auto) [place] % (Auto) Lymph # (Auto) [place] # (Auto) Seg Neutrophils % Seg Neuts % (Manual) Lymphocytes % (Manual) Monocytes % (Manual) Seg Neutrophils # Seg Neutrophils # Man Lymphocytes # (Manual) Monocytes # (Manual) PT INR ABG pH POC ABG pCO2 POC ABG pO2 82.3 L ABG pO2 ABG HCO3 ABG O2 Saturation ABG Base Excess ABG Hemoglobin 8.9 L ABG Oxyhemoglobin ABG Sodium 130.5 L ABG Potassium ABG Chloride ABG Glucose 124 H Oxyhemoglobin Sodium Potassium Chloride 95.5 L Carbon Dioxide BUN 87 H Creatinine 9.7 H Glucose 118 H POC Glucose Lactic Acid Calcium 7.7 L Phosphorus Magnesium Total Bilirubin AST ALT Alkaline Phosphatase Total Protein Albumin Triglycerides Arterial Blood Glucose 124 H Arterial Blood Ionized Calcium 3.5 L Digoxin Crossmatch 01/04/21 01/04/21 01/04/21 05:39 12:04 18:04 WBC RBC Hgb Hct MCV MCHC RDW Plt Count Lymph % (Auto) [place] % (Auto) Lymph # (Auto) [place] # (Auto) Seg Neutrophils % Seg Neuts % (Manual) Lymphocytes % (Manual) Monocytes % (Manual) Seg Neutrophils # Seg Neutrophils # Man Lymphocytes # (Manual) Monocytes # (Manual) PT INR ABG pH POC ABG pCO2 POC ABG pO2 ABG pO2 ABG HCO3 ABG O2 Saturation ABG Base Excess ABG Hemoglobin ABG Oxyhemoglobin ABG Sodium ABG Potassium ABG Chloride ABG Glucose Oxyhemoglobin Sodium Potassium Chloride Carbon Dioxide BUN Creatinine Glucose POC Glucose 134 H 125 H 131 H Lactic Acid Calcium Phosphorus Magnesium Total Bilirubin AST ALT Alkaline Phosphatase Total Protein Albumin Triglycerides Arterial Blood Glucose Arterial Blood Ionized Calcium Digoxin Crossmatch 01/04/21 01/05/21 01/05/21 23:41 03:23 04:49 WBC RBC Hgb Hct MCV MCHC RDW Plt Count Lymph % (Auto) [place] % (Auto) Lymph # (Auto) [place] # (Auto) Seg Neutrophils % Seg Neuts % (Manual) Lymphocytes % (Manual) Monocytes % (Manual) Seg Neutrophils # Seg Neutrophils # Man Lymphocytes # (Manual) Monocytes # (Manual) PT INR ABG pH POC ABG pCO2 POC ABG pO2 62.8 L ABG pO2 ABG HCO3 ABG O2 Saturation ABG Base Excess ABG Hemoglobin 9.5 L ABG Oxyhemoglobin 92.0 L ABG Sodium 130.1 L ABG Potassium ABG Chloride ABG Glucose 148 H Oxyhemoglobin Sodium Potassium Chloride 96.9 L Carbon Dioxide BUN 57 H Creatinine 6.7 H Glucose 135 H POC Glucose 132 H Lactic Acid Calcium 8.0 L Phosphorus Magnesium Total Bilirubin AST ALT Alkaline Phosphatase Total Protein Albumin Triglycerides Arterial Blood Glucose 148 H Arterial Blood Ionized Calcium 4.1 L Digoxin Crossmatch 01/05/21 01/05/21 01/05/21 05:04 11:48 12:39 WBC RBC 3.03 L Hgb 9.3 L Hct 27.6 L MCV MCHC RDW 16.5 H Plt Count Lymph % (Auto) [place] % (Auto) Lymph # (Auto) [place] # (Auto) Seg Neutrophils % Seg Neuts % (Manual) Lymphocytes % (Manual) Monocytes % (Manual) Seg Neutrophils # Seg Neutrophils # Man Lymphocytes # (Manual) Monocytes # (Manual) PT INR ABG pH POC ABG pCO2 POC ABG pO2 ABG pO2 ABG HCO3 ABG O2 Saturation ABG Base Excess ABG Hemoglobin ABG Oxyhemoglobin ABG Sodium ABG Potassium ABG Chloride ABG Glucose Oxyhemoglobin Sodium Potassium Chloride Carbon Dioxide BUN Creatinine Glucose POC Glucose 147 H 162 H Lactic Acid Calcium Phosphorus Magnesium Total Bilirubin AST ALT Alkaline Phosphatase Total Protein Albumin Triglycerides Arterial Blood Glucose Arterial Blood Ionized Calcium Digoxin Crossmatch 01/05/21 01/05/21 01/06/21 17:50 23:32 04:15 WBC RBC Hgb Hct MCV MCHC RDW Plt Count Lymph % (Auto) [place] % (Auto) Lymph # (Auto) [place] # (Auto) Seg Neutrophils % Seg Neuts % (Manual) Lymphocytes % (Manual) Monocytes % (Manual) Seg Neutrophils # Seg Neutrophils # Man Lymphocytes # (Manual) Monocytes # (Manual) PT INR ABG pH POC ABG pCO2 POC ABG pO2 ABG pO2 191.0 H ABG HCO3 ABG O2 Saturation 99.2 H ABG Base Excess ABG Hemoglobin 9.0 L ABG Oxyhemoglobin ABG Sodium ABG Potassium ABG Chloride ABG Glucose Oxyhemoglobin Sodium Potassium Chloride Carbon Dioxide BUN Creatinine Glucose POC Glucose 155 H 115 H Lactic Acid Calcium Phosphorus Magnesium Total Bilirubin AST ALT Alkaline Phosphatase Total Protein Albumin Triglycerides Arterial Blood Glucose Arterial Blood Ionized Calcium Digoxin Crossmatch 01/06/21 01/06/21 01/06/21 04:45 05:56 07:03 WBC RBC 2.95 L Hgb 9.1 L Hct 26.8 L MCV MCHC RDW 16.8 H Plt Count Lymph % (Auto) [place] % (Auto) Lymph # (Auto) [place] # (Auto) Seg Neutrophils % Seg Neuts % (Manual) Lymphocytes % (Manual) Monocytes % (Manual) Seg Neutrophils # Seg Neutrophils # Man Lymphocytes # (Manual) Monocytes # (Manual) PT INR ABG pH POC ABG pCO2 POC ABG pO2 ABG pO2 ABG HCO3 ABG O2 Saturation ABG Base Excess ABG Hemoglobin ABG Oxyhemoglobin ABG Sodium ABG Potassium ABG Chloride ABG Glucose Oxyhemoglobin Sodium 135 L Potassium Chloride 95.9 L Carbon Dioxide BUN 82 H Creatinine 8.7 H Glucose 127 H POC Glucose 136 H Lactic Acid Calcium 8.3 L Phosphorus Magnesium Total Bilirubin AST ALT Alkaline Phosphatase Total Protein Albumin Triglycerides Arterial Blood Glucose Arterial Blood Ionized Calcium Digoxin Crossmatch 01/06/21 01/06/21 01/06/21 07:10 11:04 13:38 WBC RBC Hgb Hct MCV MCHC RDW Plt Count Lymph % (Auto) [place] % (Auto) Lymph # (Auto) [place] # (Auto) Seg Neutrophils % Seg Neuts % (Manual) Lymphocytes % (Manual) Monocytes % (Manual) Seg Neutrophils # Seg Neutrophils # Man Lymphocytes # (Manual) Monocytes # (Manual) PT INR ABG pH POC ABG pCO2 POC ABG pO2 ABG pO2 ABG HCO3 ABG O2 Saturation ABG Base Excess ABG Hemoglobin ABG Oxyhemoglobin ABG Sodium ABG Potassium ABG Chloride ABG Glucose Oxyhemoglobin Sodium Potassium Chloride Carbon Dioxide BUN Creatinine Glucose POC Glucose 178 H 155 H Lactic Acid Calcium Phosphorus Magnesium Total Bilirubin AST ALT Alkaline Phosphatase Total Protein Albumin Triglycerides Arterial Blood Glucose Arterial Blood Ionized Calcium Digoxin Crossmatch See Detail 01/06/21 01/06/21 01/07/21 17:35 22:21 03:07 WBC RBC Hgb Hct MCV MCHC RDW Plt Count Lymph % (Auto) [place] % (Auto) Lymph # (Auto) [place] # (Auto) Seg Neutrophils % Seg Neuts % (Manual) Lymphocytes % (Manual) Monocytes % (Manual) Seg Neutrophils # Seg Neutrophils # Man Lymphocytes # (Manual) Monocytes # (Manual) PT INR ABG pH POC ABG pCO2 POC ABG pO2 ABG pO2 ABG HCO3 ABG O2 Saturation ABG Base Excess ABG Hemoglobin 11.9 L ABG Oxyhemoglobin ABG Sodium 135.6 L ABG Potassium ABG Chloride ABG Glucose 181 H Oxyhemoglobin Sodium Potassium Chloride Carbon Dioxide BUN Creatinine Glucose POC Glucose 138 H 202 H Lactic Acid Calcium Phosphorus Magnesium Total Bilirubin AST ALT Alkaline Phosphatase Total Protein Albumin Triglycerides Arterial Blood Glucose 181 H Arterial Blood Ionized Calcium 4.3 L Digoxin Crossmatch 01/07/21 01/07/21 01/07/21 04:50 05: 08:37 WBC 12.4 H RBC Hgb 11.1 L Hct 33.3 L D MCV MCHC RDW 17.0 H Plt Count Lymph % (Auto) 3.2 L [place] % (Auto) 9.4 H Lymph # (Auto) 0.4 L [place] # (Auto) 1.2 H Seg Neutrophils % 86.6 H Seg Neuts % (Manual) Lymphocytes % (Manual) Monocytes % (Manual) Seg Neutrophils # 10.7 H Seg Neutrophils # Man Lymphocytes # (Manual) Monocytes # (Manual) PT INR ABG pH POC ABG pCO2 POC ABG pO2 ABG pO2 ABG HCO3 ABG O2 Saturation ABG Base Excess ABG Hemoglobin ABG Oxyhemoglobin ABG Sodium ABG Potassium ABG Chloride ABG Glucose Oxyhemoglobin Sodium Potassium Chloride Carbon Dioxide BUN 60 H Creatinine 6.3 H Glucose 154 H POC Glucose 177 H Lactic Acid Calcium 8.3 L Phosphorus Magnesium Total Bilirubin AST ALT Alkaline Phosphatase Total Protein Albumin Triglycerides Arterial Blood Glucose Arterial Blood Ionized Calcium Digoxin Crossmatch 01/07/21 01/07/21 01/07/21 11:21 12:19 17:11 WBC RBC Hgb Hct MCV MCHC RDW Plt Count Lymph % (Auto) [place] % (Auto) Lymph # (Auto) [place] # (Auto) Seg Neutrophils % Seg Neuts % (Manual) Lymphocytes % (Manual) Monocytes % (Manual) Seg Neutrophils # Seg Neutrophils # Man Lymphocytes # (Manual) Monocytes # (Manual) PT INR ABG pH POC ABG pCO2 POC ABG pO2 ABG pO2 ABG HCO3 ABG O2 Saturation ABG Base Excess ABG Hemoglobin ABG Oxyhemoglobin ABG Sodium ABG Potassium ABG Chloride ABG Glucose Oxyhemoglobin Sodium Potassium Chloride Carbon Dioxide BUN Creatinine Glucose POC Glucose 144 H 137 H 119 H Lactic Acid Calcium Phosphorus Magnesium Total Bilirubin AST ALT Alkaline Phosphatase Total Protein Albumin Triglycerides Arterial Blood Glucose Arterial Blood Ionized Calcium Digoxin Crossmatch 01/07/21 01/07/21 01/08/21 17:14 23:39 04:34 WBC RBC Hgb Hct MCV MCHC RDW Plt Count Lymph % (Auto) [place] % (Auto) Lymph # (Auto) [place] # (Auto) Seg Neutrophils % Seg Neuts % (Manual) Lymphocytes % (Manual) Monocytes % (Manual) Seg Neutrophils # Seg Neutrophils # Man Lymphocytes # (Manual) Monocytes # (Manual) PT INR ABG pH 7.345 L POC ABG pCO2 POC ABG pO2 ABG pO2 67.4 L ABG HCO3 ABG O2 Saturation 94.3 L ABG Base Excess -3.9 L ABG Hemoglobin 8.9 L ABG Oxyhemoglobin ABG Sodium ABG Potassium ABG Chloride ABG Glucose Oxyhemoglobin 92.3 L Sodium Potassium Chloride Carbon Dioxide 20 L BUN 93 H Creatinine 8.8 H Glucose 120 H POC Glucose 129 H Lactic Acid Calcium Phosphorus Magnesium Total Bilirubin AST ALT Alkaline Phosphatase 133 H Total Protein 5.4 L Albumin 1.9 L Triglycerides Arterial Blood Glucose Arterial Blood Ionized Calcium Digoxin Crossmatch 01/08/21 01/08/21 01/08/21 05:26 11:38 17:19 WBC RBC Hgb Hct MCV MCHC RDW Plt Count Lymph % (Auto) [place] % (Auto) Lymph # (Auto) [place] # (Auto) Seg Neutrophils % Seg Neuts % (Manual) Lymphocytes % (Manual) Monocytes % (Manual) Seg Neutrophils # Seg Neutrophils # Man Lymphocytes # (Manual) Monocytes # (Manual) PT INR ABG pH POC ABG pCO2 POC ABG pO2 ABG pO2 ABG HCO3 ABG O2 Saturation ABG Base Excess ABG Hemoglobin ABG Oxyhemoglobin ABG Sodium ABG Potassium ABG Chloride ABG Glucose Oxyhemoglobin Sodium Potassium Chloride Carbon Dioxide BUN Creatinine Glucose POC Glucose 125 H 146 H 136 H Lactic Acid Calcium Phosphorus Magnesium Total Bilirubin AST ALT Alkaline Phosphatase Total Protein Albumin Triglycerides Arterial Blood Glucose Arterial Blood Ionized Calcium Digoxin Crossmatch 01/08/21 01/09/21 01/09/21 23:52 05:13 05:21 WBC RBC Hgb Hct MCV MCHC RDW Plt Count Lymph % (Auto) [place] % (Auto) Lymph # (Auto) [place] # (Auto) Seg Neutrophils % Seg Neuts % (Manual) Lymphocytes % (Manual) Monocytes % (Manual) Seg Neutrophils # Seg Neutrophils # Man Lymphocytes # (Manual) Monocytes # (Manual) PT INR ABG pH POC ABG pCO2 POC ABG pO2 ABG pO2 ABG HCO3 ABG O2 Saturation ABG Base Excess ABG Hemoglobin ABG Oxyhemoglobin ABG Sodium ABG Potassium ABG Chloride ABG Glucose Oxyhemoglobin Sodium Potassium Chloride Carbon Dioxide 16 L BUN 123 H Creatinine 10.8 H Glucose 145 H POC Glucose 143 H 144 H Lactic Acid Calcium Phosphorus 5.00 H D Magnesium 2.40 H Total Bilirubin AST ALT Alkaline Phosphatase Total Protein Albumin Triglycerides Arterial Blood Glucose Arterial Blood Ionized Calcium Digoxin Crossmatch 01/09/21 01/09/21 01/09/21 12:08 17:20 23:56 WBC RBC Hgb Hct MCV MCHC RDW Plt Count Lymph % (Auto) [place] % (Auto) Lymph # (Auto) [place] # (Auto) Seg Neutrophils % Seg Neuts % (Manual) Lymphocytes % (Manual) Monocytes % (Manual) Seg Neutrophils # Seg Neutrophils # Man Lymphocytes # (Manual) Monocytes # (Manual) PT INR ABG pH POC ABG pCO2 POC ABG pO2 ABG pO2 ABG HCO3 ABG O2 Saturation ABG Base Excess ABG Hemoglobin ABG Oxyhemoglobin ABG Sodium ABG Potassium ABG Chloride ABG Glucose Oxyhemoglobin Sodium Potassium Chloride Carbon Dioxide BUN Creatinine Glucose POC Glucose 153 H 160 H 158 H Lactic Acid Calcium Phosphorus Magnesium Total Bilirubin AST ALT Alkaline Phosphatase Total Protein Albumin Triglycerides Arterial Blood Glucose Arterial Blood Ionized Calcium Digoxin Crossmatch 01/10/21 01/10/21 01/10/21 04:52 05:44 07:41 WBC RBC Hgb Hct MCV MCHC RDW Plt Count Lymph % (Auto) [place] % (Auto) Lymph # (Auto) [place] # (Auto) Seg Neutrophils % Seg Neuts % (Manual) Lymphocytes % (Manual) Monocytes % (Manual) Seg Neutrophils # Seg Neutrophils # Man Lymphocytes # (Manual) Monocytes # (Manual) PT INR ABG pH POC ABG pCO2 POC ABG pO2 ABG pO2 ABG HCO3 ABG O2 Saturation ABG Base Excess ABG Hemoglobin ABG Oxyhemoglobin ABG Sodium ABG Potassium ABG Chloride ABG Glucose Oxyhemoglobin Sodium 135 L Potassium 3.5 L D Chloride 95.0 L Carbon Dioxide 21 L BUN 93 H Creatinine 8.3 H Glucose 127 H POC Glucose 135 H 157 H Lactic Acid Calcium Phosphorus Magnesium Total Bilirubin AST ALT Alkaline Phosphatase Total Protein Albumin Triglycerides Arterial Blood Glucose Arterial Blood Ionized Calcium Digoxin Crossmatch 01/10/21 01/10/21 01/10/21 09:26 12:03 17:44 WBC 18.2 H RBC 3.14 L Hgb 9.7 L Hct 28.2 L MCV MCHC RDW 16.5 H Plt Count Lymph % (Auto) [place] % (Auto) Lymph # (Auto) [place] # (Auto) Seg Neutrophils % Seg Neuts % (Manual) 95.0 H Lymphocytes % (Manual) 3.0 L Monocytes % (Manual) Seg Neutrophils # Seg Neutrophils # Man 17.3 H Lymphocytes # (Manual) 0.5 L Monocytes # (Manual) PT INR ABG pH POC ABG pCO2 POC ABG pO2 ABG pO2 ABG HCO3 ABG O2 Saturation ABG Base Excess ABG Hemoglobin ABG Oxyhemoglobin ABG Sodium ABG Potassium ABG Chloride ABG Glucose Oxyhemoglobin Sodium Potassium Chloride Carbon Dioxide BUN Creatinine Glucose POC Glucose 163 H 171 H Lactic Acid Calcium Phosphorus Magnesium Total Bilirubin AST ALT Alkaline Phosphatase Total Protein Albumin Triglycerides Arterial Blood Glucose Arterial Blood Ionized Calcium Digoxin Crossmatch 01/10/21 01/11/21 01/11/21 23:50 05:18 05:18 WBC RBC Hgb Hct MCV MCHC RDW Plt Count Lymph % (Auto) [place] % (Auto) Lymph # (Auto) [place] # (Auto) Seg Neutrophils % Seg Neuts % (Manual) Lymphocytes % (Manual) Monocytes % (Manual) Seg Neutrophils # Seg Neutrophils # Man Lymphocytes # (Manual) Monocytes # (Manual) PT INR ABG pH POC ABG pCO2 POC ABG pO2 ABG pO2 ABG HCO3 ABG O2 Saturation ABG Base Excess ABG Hemoglobin ABG Oxyhemoglobin ABG Sodium ABG Potassium ABG Chloride ABG Glucose Oxyhemoglobin Sodium 136 L Potassium Chloride 94.6 L Carbon Dioxide 19 L BUN 145 H Creatinine 10.6 H Glucose 152 H POC Glucose 151 H Lactic Acid Calcium Phosphorus 6.00 H D Magnesium Total Bilirubin AST ALT Alkaline Phosphatase Total Protein Albumin Triglycerides Arterial Blood Glucose Arterial Blood Ionized Calcium Digoxin 0.8 L Crossmatch 01/11/21 01/11/21 01/11/21 05:18 05:19 11:28 WBC 17.4 H RBC 3.34 L Hgb 10.2 L Hct 29.7 L MCV MCHC RDW 15.9 H Plt Count Lymph % (Auto) [place] % (Auto) Lymph # (Auto) [place] # (Auto) Seg Neutrophils % Seg Neuts % (Manual) Lymphocytes % (Manual) Monocytes % (Manual) Seg Neutrophils # Seg Neutrophils # Man Lymphocytes # (Manual) Monocytes # (Manual) PT INR ABG pH POC ABG pCO2 POC ABG pO2 ABG pO2 ABG HCO3 ABG O2 Saturation ABG Base Excess ABG Hemoglobin ABG Oxyhemoglobin ABG Sodium ABG Potassium ABG Chloride ABG Glucose Oxyhemoglobin Sodium Potassium Chloride Carbon Dioxide BUN Creatinine Glucose POC Glucose 149 H 178 H Lactic Acid Calcium Phosphorus Magnesium Total Bilirubin AST ALT Alkaline Phosphatase Total Protein Albumin Triglycerides Arterial Blood Glucose Arterial Blood Ionized Calcium Digoxin Crossmatch 01/11/21 01/11/21 01/12/21 17:31 23:14 05:18 WBC RBC Hgb Hct MCV MCHC RDW Plt Count Lymph % (Auto) [place] % (Auto) Lymph # (Auto) [place] # (Auto) Seg Neutrophils % Seg Neuts % (Manual) Lymphocytes % (Manual) Monocytes % (Manual) Seg Neutrophils # Seg Neutrophils # Man Lymphocytes # (Manual) Monocytes # (Manual) PT INR ABG pH POC ABG pCO2 POC ABG pO2 ABG pO2 ABG HCO3 ABG O2 Saturation ABG Base Excess ABG Hemoglobin ABG Oxyhemoglobin ABG Sodium ABG Potassium ABG Chloride ABG Glucose Oxyhemoglobin Sodium Potassium Chloride Carbon Dioxide BUN Creatinine Glucose POC Glucose 158 H 145 H 148 H Lactic Acid Calcium Phosphorus Magnesium Total Bilirubin AST ALT Alkaline Phosphatase Total Protein Albumin Triglycerides Arterial Blood Glucose Arterial Blood Ionized Calcium Digoxin Crossmatch 01/12/21 01/12/21 01/12/21 06:50 10:45 13:34 WBC RBC Hgb Hct MCV MCHC RDW Plt Count Lymph % (Auto) [place] % (Auto) Lymph # (Auto) [place] # (Auto) Seg Neutrophils % Seg Neuts % (Manual) Lymphocytes % (Manual) Monocytes % (Manual) Seg Neutrophils # Seg Neutrophils # Man Lymphocytes # (Manual) Monocytes # (Manual) PT INR ABG pH POC ABG pCO2 POC ABG pO2 ABG pO2 ABG HCO3 ABG O2 Saturation ABG Base Excess ABG Hemoglobin ABG Oxyhemoglobin ABG Sodium ABG Potassium ABG Chloride ABG Glucose Oxyhemoglobin Sodium Potassium 2.9 L* D Chloride 94.8 L Carbon Dioxide BUN 102 H Creatinine 8.3 H Glucose 139 H POC Glucose 151 H 134 H Lactic Acid Calcium 8.1 L Phosphorus 5.00 H Magnesium Total Bilirubin AST ALT Alkaline Phosphatase Total Protein Albumin Triglycerides Arterial Blood Glucose Arterial Blood Ionized Calcium Digoxin Crossmatch 01/12/21 01/12/21 01/13/21 16:59 23:06 03:45 WBC RBC Hgb Hct MCV MCHC RDW Plt Count Lymph % (Auto) [place] % (Auto) Lymph # (Auto) [place] # (Auto) Seg Neutrophils % Seg Neuts % (Manual) Lymphocytes % (Manual) Monocytes % (Manual) Seg Neutrophils # Seg Neutrophils # Man Lymphocytes # (Manual) Monocytes # (Manual) PT INR ABG pH POC ABG pCO2 POC ABG pO2 ABG pO2 ABG HCO3 ABG O2 Saturation ABG Base Excess ABG Hemoglobin ABG Oxyhemoglobin ABG Sodium ABG Potassium ABG Chloride ABG Glucose Oxyhemoglobin Sodium 136 L Potassium 3.4 L Chloride 92.6 L Carbon Dioxide BUN 134 H Creatinine 10.4 H Glucose 126 H POC Glucose 108 H 135 H Lactic Acid Calcium 8.3 L Phosphorus 5.60 H Magnesium 1.50 L Total Bilirubin AST ALT Alkaline Phosphatase Total Protein Albumin Triglycerides Arterial Blood Glucose Arterial Blood Ionized Calcium Digoxin Crossmatch 01/13/21 01/13/21 01/13/21 03:45 05:55 11:59 WBC 17.6 H RBC 3.33 L Hgb 10.2 L Hct 29.5 L MCV MCHC 35 H RDW 15.5 H Plt Count Lymph % (Auto) 4.4 L [place] % (Auto) 10.3 H Lymph # (Auto) 0.8 L [place] # (Auto) 1.8 H Seg Neutrophils % 84.2 H Seg Neuts % (Manual) Lymphocytes % (Manual) Monocytes % (Manual) Seg Neutrophils # 14.8 H Seg Neutrophils # Man Lymphocytes # (Manual) Monocytes # (Manual) PT INR ABG pH POC ABG pCO2 POC ABG pO2 ABG pO2 ABG HCO3 ABG O2 Saturation ABG Base Excess ABG Hemoglobin ABG Oxyhemoglobin ABG Sodium ABG Potassium ABG Chloride ABG Glucose Oxyhemoglobin Sodium Potassium Chloride Carbon Dioxide BUN Creatinine Glucose POC Glucose 134 H 141 H Lactic Acid Calcium Phosphorus Magnesium Total Bilirubin AST ALT Alkaline Phosphatase Total Protein Albumin Triglycerides Arterial Blood Glucose Arterial Blood Ionized Calcium Digoxin Crossmatch 01/13/21 01/14/21 01/14/21 23:09 05:39 05:57 WBC RBC Hgb Hct MCV MCHC RDW Plt Count Lymph % (Auto) [place] % (Auto) Lymph # (Auto) [place] # (Auto) Seg Neutrophils % Seg Neuts % (Manual) Lymphocytes % (Manual) Monocytes % (Manual) Seg Neutrophils # Seg Neutrophils # Man Lymphocytes # (Manual) Monocytes # (Manual) PT INR ABG pH POC ABG pCO2 POC ABG pO2 ABG pO2 ABG HCO3 ABG O2 Saturation ABG Base Excess ABG Hemoglobin ABG Oxyhemoglobin ABG Sodium ABG Potassium ABG Chloride ABG Glucose Oxyhemoglobin Sodium Potassium Chloride 97.6 L Carbon Dioxide BUN 81 H Creatinine 7.6 H Glucose 193 H POC Glucose 106 H 190 H Lactic Acid Calcium 8.2 L Phosphorus 4.60 H Magnesium Total Bilirubin AST ALT Alkaline Phosphatase Total Protein Albumin Triglycerides Arterial Blood Glucose Arterial Blood Ionized Calcium Digoxin Crossmatch 01/14/21 01/14/21 01/14/21 10:00 16:56 16:59 WBC 17.0 H RBC 3.10 L Hgb 9.6 L Hct 27.4 L MCV MCHC 35 H RDW 15.6 H Plt Count Lymph % (Auto) [place] % (Auto) Lymph # (Auto) [place] # (Auto) Seg Neutrophils % Seg Neuts % (Manual) Lymphocytes % (Manual) Monocytes % (Manual) Seg Neutrophils # Seg Neutrophils # Man Lymphocytes # (Manual) Monocytes # (Manual) PT INR ABG pH POC ABG pCO2 POC ABG pO2 ABG pO2 ABG HCO3 ABG O2 Saturation ABG Base Excess ABG Hemoglobin ABG Oxyhemoglobin ABG Sodium ABG Potassium ABG Chloride ABG Glucose Oxyhemoglobin Sodium Potassium Chloride Carbon Dioxide BUN Creatinine Glucose POC Glucose 37 L 34 L Lactic Acid Calcium Phosphorus Magnesium Total Bilirubin AST ALT Alkaline Phosphatase Total Protein Albumin Triglycerides Arterial Blood Glucose Arterial Blood Ionized Calcium Digoxin Crossmatch 01/14/21 01/14/21 01/14/21 17:02 18:34 23:17 WBC RBC Hgb Hct MCV MCHC RDW Plt Count Lymph % (Auto) [place] % (Auto) Lymph # (Auto) [place] # (Auto) Seg Neutrophils % Seg Neuts % (Manual) Lymphocytes % (Manual) Monocytes % (Manual) Seg Neutrophils # Seg Neutrophils # Man Lymphocytes # (Manual) Monocytes # (Manual) PT INR ABG pH POC ABG pCO2 POC ABG pO2 ABG pO2 ABG HCO3 ABG O2 Saturation ABG Base Excess ABG Hemoglobin ABG Oxyhemoglobin ABG Sodium ABG Potassium ABG Chloride ABG Glucose Oxyhemoglobin Sodium Potassium Chloride Carbon Dioxide BUN Creatinine Glucose POC Glucose 35 L 143 H 53 L Lactic Acid Calcium Phosphorus Magnesium Total Bilirubin AST ALT Alkaline Phosphatase Total Protein Albumin Triglycerides Arterial Blood Glucose Arterial Blood Ionized Calcium Digoxin Crossmatch 01/15/21 01/15/21 01/15/21 00:34 04:00 04:00 WBC 15.9 H RBC 3.02 L Hgb 9.3 L Hct 27.3 L MCV MCHC RDW 15.6 H Plt Count Lymph % (Auto) [place] % (Auto) Lymph # (Auto) [place] # (Auto) Seg Neutrophils % Seg Neuts % (Manual) Lymphocytes % (Manual) Monocytes % (Manual) Seg Neutrophils # Seg Neutrophils # Man Lymphocytes # (Manual) Monocytes # (Manual) PT INR ABG pH POC ABG pCO2 POC ABG pO2 ABG pO2 ABG HCO3 ABG O2 Saturation ABG Base Excess ABG Hemoglobin ABG Oxyhemoglobin ABG Sodium ABG Potassium ABG Chloride ABG Glucose Oxyhemoglobin Sodium 136 L Potassium Chloride 94.3 L Carbon Dioxide BUN 117 H Creatinine 9.9 H Glucose 217 H POC Glucose 181 H Lactic Acid Calcium 8.3 L Phosphorus Magnesium Total Bilirubin AST ALT Alkaline Phosphatase Total Protein Albumin Triglycerides Arterial Blood Glucose Arterial Blood Ionized Calcium Digoxin Crossmatch 01/15/21 01/15/21 01/15/21 05:29 11:51 23:13 WBC RBC Hgb Hct MCV MCHC RDW Plt Count Lymph % (Auto) [place] % (Auto) Lymph # (Auto) [place] # (Auto) Seg Neutrophils % Seg Neuts % (Manual) Lymphocytes % (Manual) Monocytes % (Manual) Seg Neutrophils # Seg Neutrophils # Man Lymphocytes # (Manual) Monocytes # (Manual) PT INR ABG pH POC ABG pCO2 POC ABG pO2 ABG pO2 ABG HCO3 ABG O2 Saturation ABG Base Excess ABG Hemoglobin ABG Oxyhemoglobin ABG Sodium ABG Potassium ABG Chloride ABG Glucose Oxyhemoglobin Sodium Potassium Chloride Carbon Dioxide BUN Creatinine Glucose POC Glucose 221 H 62 L 154 H Lactic Acid Calcium Phosphorus Magnesium Total Bilirubin AST ALT Alkaline Phosphatase Total Protein Albumin Triglycerides Arterial Blood Glucose Arterial Blood Ionized Calcium Digoxin Crossmatch 01/16/21 01/16/21 01/16/21 05:04 06:44 06:44 WBC 14.8 H RBC 2.76 L Hgb 8.2 L Hct 24.8 L MCV MCHC RDW 15.6 H Plt Count Lymph % (Auto) [place] % (Auto) Lymph # (Auto) [place] # (Auto) Seg Neutrophils % Seg Neuts % (Manual) Lymphocytes % (Manual) Monocytes % (Manual) Seg Neutrophils # Seg Neutrophils # Man Lymphocytes # (Manual) Monocytes # (Manual) PT INR ABG pH POC ABG pCO2 POC ABG pO2 ABG pO2 ABG HCO3 ABG O2 Saturation ABG Base Excess ABG Hemoglobin ABG Oxyhemoglobin ABG Sodium ABG Potassium ABG Chloride ABG Glucose Oxyhemoglobin Sodium 133 L Potassium Chloride 92.3 L Carbon Dioxide 20 L BUN 160 H Creatinine 12.1 H Glucose 177 H POC Glucose 168 H Lactic Acid Calcium 8.1 L Phosphorus 5.50 H Magnesium 2.50 H Total Bilirubin AST ALT Alkaline Phosphatase Total Protein Albumin Triglycerides Arterial Blood Glucose Arterial Blood Ionized Calcium Digoxin Crossmatch 01/16/21 01/17/21 01/17/21 23:20 05:14 05:14 WBC 12.7 H RBC 2.75 L Hgb 8.5 L Hct 24.6 L MCV MCHC 35 H RDW 15.4 H Plt Count Lymph % (Auto) [place] % (Auto) Lymph # (Auto) [place] # (Auto) Seg Neutrophils % Seg Neuts % (Manual) Lymphocytes % (Manual) Monocytes % (Manual) Seg Neutrophils # Seg Neutrophils # Man Lymphocytes # (Manual) Monocytes # (Manual) PT INR ABG pH POC ABG pCO2 POC ABG pO2 ABG pO2 ABG HCO3 ABG O2 Saturation ABG Base Excess ABG Hemoglobin ABG Oxyhemoglobin ABG Sodium ABG Potassium ABG Chloride ABG Glucose Oxyhemoglobin Sodium Potassium Chloride 97.9 L Carbon Dioxide BUN 84 H Creatinine 7.8 H Glucose 176 H POC Glucose 153 H Lactic Acid Calcium 8.0 L Phosphorus Magnesium Total Bilirubin AST ALT Alkaline Phosphatase Total Protein Albumin Triglycerides Arterial Blood Glucose Arterial Blood Ionized Calcium Digoxin Crossmatch 01/17/21 01/17/21 01/18/21 05:33 11:58 00:07 WBC RBC Hgb Hct MCV MCHC RDW Plt Count Lymph % (Auto) [place] % (Auto) Lymph # (Auto) [place] # (Auto) Seg Neutrophils % Seg Neuts % (Manual) Lymphocytes % (Manual) Monocytes % (Manual) Seg Neutrophils # Seg Neutrophils # Man Lymphocytes # (Manual) Monocytes # (Manual) PT INR ABG pH POC ABG pCO2 POC ABG pO2 ABG pO2 ABG HCO3 ABG O2 Saturation ABG Base Excess ABG Hemoglobin ABG Oxyhemoglobin ABG Sodium ABG Potassium ABG Chloride ABG Glucose Oxyhemoglobin Sodium Potassium Chloride Carbon Dioxide BUN Creatinine Glucose POC Glucose 162 H 64 L 146 H Lactic Acid Calcium Phosphorus Magnesium Total Bilirubin AST ALT Alkaline Phosphatase Total Protein Albumin Triglycerides Arterial Blood Glucose Arterial Blood Ionized Calcium Digoxin Crossmatch 01/18/21 01/18/21 01/18/21 04:19 04:19 06:15 WBC 15.6 H RBC 3.00 L Hgb 9.2 L Hct 26.8 L MCV MCHC 35 H RDW 15.6 H Plt Count Lymph % (Auto) [place] % (Auto) Lymph # (Auto) [place] # (Auto) Seg Neutrophils % Seg Neuts % (Manual) Lymphocytes % (Manual) Monocytes % (Manual) Seg Neutrophils # Seg Neutrophils # Man Lymphocytes # (Manual) Monocytes # (Manual) PT INR ABG pH POC ABG pCO2 POC ABG pO2 ABG pO2 ABG HCO3 ABG O2 Saturation ABG Base Excess ABG Hemoglobin ABG Oxyhemoglobin ABG Sodium ABG Potassium ABG Chloride ABG Glucose Oxyhemoglobin Sodium Potassium Chloride 96.2 L Carbon Dioxide BUN 117 H Creatinine 10.0 H Glucose 165 H POC Glucose 189 H Lactic Acid Calcium Phosphorus 4.70 H D Magnesium Total Bilirubin AST ALT Alkaline Phosphatase Total Protein Albumin Triglycerides Arterial Blood Glucose Arterial Blood Ionized Calcium Digoxin Crossmatch 01/18/21 01/18/21 01/18/21 11:53 13:44 15:08 WBC RBC Hgb Hct MCV MCHC RDW Plt Count Lymph % (Auto) [place] % (Auto) Lymph # (Auto) [place] # (Auto) Seg Neutrophils % Seg Neuts % (Manual) Lymphocytes % (Manual) Monocytes % (Manual) Seg Neutrophils # Seg Neutrophils # Man Lymphocytes # (Manual) Monocytes # (Manual) PT INR ABG pH POC ABG pCO2 POC ABG pO2 ABG pO2 ABG HCO3 ABG O2 Saturation ABG Base Excess ABG Hemoglobin ABG Oxyhemoglobin ABG Sodium ABG Potassium ABG Chloride ABG Glucose Oxyhemoglobin Sodium Potassium Chloride Carbon Dioxide BUN Creatinine Glucose POC Glucose 69 L 50 L 56 L Lactic Acid Calcium Phosphorus Magnesium Total Bilirubin AST ALT Alkaline Phosphatase Total Protein Albumin Triglycerides Arterial Blood Glucose Arterial Blood Ionized Calcium Digoxin Crossmatch 01/18/21 01/19/21 01/19/21 17:50 04:55 08:56 WBC 12.7 H RBC 2.89 L Hgb 8.7 L Hct 25.6 L MCV MCHC RDW 15.5 H Plt Count Lymph % (Auto) [place] % (Auto) Lymph # (Auto) [place] # (Auto) Seg Neutrophils % Seg Neuts % (Manual) Lymphocytes % (Manual) Monocytes % (Manual) Seg Neutrophils # Seg Neutrophils # Man Lymphocytes # (Manual) Monocytes # (Manual) PT INR ABG pH POC ABG pCO2 POC ABG pO2 ABG pO2 ABG HCO3 ABG O2 Saturation ABG Base Excess ABG Hemoglobin ABG Oxyhemoglobin ABG Sodium ABG Potassium ABG Chloride ABG Glucose Oxyhemoglobin Sodium Potassium Chloride Carbon Dioxide BUN Creatinine Glucose POC Glucose 137 H 120 H Lactic Acid Calcium Phosphorus Magnesium Total Bilirubin AST ALT Alkaline Phosphatase Total Protein Albumin Triglycerides Arterial Blood Glucose Arterial Blood Ionized Calcium Digoxin Crossmatch 01/19/21 01/19/21 01/19/21 08:56 11:33 17:32 WBC RBC Hgb Hct MCV MCHC RDW Plt Count Lymph % (Auto) [place] % (Auto) Lymph # (Auto) [place] # (Auto) Seg Neutrophils % Seg Neuts % (Manual) Lymphocytes % (Manual) Monocytes % (Manual) Seg Neutrophils # Seg Neutrophils # Man Lymphocytes # (Manual) Monocytes # (Manual) PT INR ABG pH POC ABG pCO2 POC ABG pO2 ABG pO2 ABG HCO3 ABG O2 Saturation ABG Base Excess ABG Hemoglobin ABG Oxyhemoglobin ABG Sodium ABG Potassium ABG Chloride ABG Glucose Oxyhemoglobin Sodium Potassium Chloride Carbon Dioxide BUN 66 H Creatinine 7.7 H Glucose 119 H POC Glucose 160 H 125 H Lactic Acid Calcium 8.3 L Phosphorus Magnesium Total Bilirubin AST ALT Alkaline Phosphatase Total Protein Albumin Triglycerides Arterial Blood Glucose Arterial Blood Ionized Calcium Digoxin Crossmatch 01/19/21 01/20/21 01/20/21 23:30 03:35 03:35 WBC 12.0 H RBC 2.62 L Hgb 8.3 L Hct 23.2 L MCV MCHC 36 H RDW Plt Count Lymph % (Auto) [place] % (Auto) Lymph # (Auto) [place] # (Auto) Seg Neutrophils % Seg Neuts % (Manual) Lymphocytes % (Manual) Monocytes % (Manual) Seg Neutrophils # Seg Neutrophils # Man Lymphocytes # (Manual) Monocytes # (Manual) PT INR ABG pH POC ABG pCO2 POC ABG pO2 ABG pO2 ABG HCO3 ABG O2 Saturation ABG Base Excess ABG Hemoglobin ABG Oxyhemoglobin ABG Sodium ABG Potassium ABG Chloride ABG Glucose Oxyhemoglobin Sodium Potassium Chloride Carbon Dioxide BUN 46 H Creatinine 5.9 H Glucose 128 H POC Glucose 127 H Lactic Acid Calcium Phosphorus Magnesium Total Bilirubin AST ALT Alkaline Phosphatase Total Protein Albumin Triglycerides Arterial Blood Glucose Arterial Blood Ionized Calcium Digoxin Crossmatch 01/20/21 01/20/21 01/20/21 06:19 11:55 18:00 WBC RBC Hgb Hct MCV MCHC RDW Plt Count Lymph % (Auto) [place] % (Auto) Lymph # (Auto) [place] # (Auto) Seg Neutrophils % Seg Neuts % (Manual) Lymphocytes % (Manual) Monocytes % (Manual) Seg Neutrophils # Seg Neutrophils # Man Lymphocytes # (Manual) Monocytes # (Manual) PT INR ABG pH POC ABG pCO2 POC ABG pO2 ABG pO2 ABG HCO3 ABG O2 Saturation ABG Base Excess ABG Hemoglobin ABG Oxyhemoglobin ABG Sodium ABG Potassium ABG Chloride ABG Glucose Oxyhemoglobin Sodium Potassium Chloride Carbon Dioxide BUN Creatinine Glucose POC Glucose 119 H 128 H 115 H Lactic Acid Calcium Phosphorus Magnesium Total Bilirubin AST ALT Alkaline Phosphatase Total Protein Albumin Triglycerides Arterial Blood Glucose Arterial Blood Ionized Calcium Digoxin Crossmatch 01/20/21 01/21/21 01/21/21 23:26 04:39 05:27 WBC RBC Hgb Hct MCV MCHC RDW Plt Count Lymph % (Auto) [place] % (Auto) Lymph # (Auto) [place] # (Auto) Seg Neutrophils % Seg Neuts % (Manual) Lymphocytes % (Manual) Monocytes % (Manual) Seg Neutrophils # Seg Neutrophils # Man Lymphocytes # (Manual) Monocytes # (Manual) PT INR ABG pH POC ABG pCO2 POC ABG pO2 ABG pO2 ABG HCO3 ABG O2 Saturation ABG Base Excess ABG Hemoglobin ABG Oxyhemoglobin ABG Sodium ABG Potassium ABG Chloride ABG Glucose Oxyhemoglobin Sodium Potassium Chloride Carbon Dioxide BUN 37 H Creatinine 5.3 H Glucose 109 H POC Glucose 108 H 107 H Lactic Acid Calcium Phosphorus 2.10 L Magnesium 1.50 L Total Bilirubin AST ALT Alkaline Phosphatase 143 H Total Protein 6.1 L Albumin 3.0 L Triglycerides Arterial Blood Glucose Arterial Blood Ionized Calcium Digoxin Crossmatch 01/21/21 01/21/21 01/22/21 11:35 17:53 00:20 WBC RBC Hgb Hct MCV MCHC RDW Plt Count Lymph % (Auto) [place] % (Auto) Lymph # (Auto) [place] # (Auto) Seg Neutrophils % Seg Neuts % (Manual) Lymphocytes % (Manual) Monocytes % (Manual) Seg Neutrophils # Seg Neutrophils # Man Lymphocytes # (Manual) Monocytes # (Manual) PT INR ABG pH POC ABG pCO2 POC ABG pO2 ABG pO2 ABG HCO3 ABG O2 Saturation ABG Base Excess ABG Hemoglobin ABG Oxyhemoglobin ABG Sodium ABG Potassium ABG Chloride ABG Glucose Oxyhemoglobin Sodium Potassium Chloride Carbon Dioxide BUN Creatinine Glucose POC Glucose 133 H 124 H 122 H Lactic Acid Calcium Phosphorus Magnesium Total Bilirubin AST ALT Alkaline Phosphatase Total Protein Albumin Triglycerides Arterial Blood Glucose Arterial Blood Ionized Calcium Digoxin Crossmatch 01/22/21 01/22/21 01/22/21 04:00 06:09 11:36 WBC RBC Hgb Hct MCV MCHC RDW Plt Count Lymph % (Auto) [place] % (Auto) Lymph # (Auto) [place] # (Auto) Seg Neutrophils % Seg Neuts % (Manual) Lymphocytes % (Manual) Monocytes % (Manual) Seg Neutrophils # Seg Neutrophils # Man Lymphocytes # (Manual) Monocytes # (Manual) PT INR ABG pH POC ABG pCO2 POC ABG pO2 ABG pO2 ABG HCO3 ABG O2 Saturation ABG Base Excess ABG Hemoglobin ABG Oxyhemoglobin ABG Sodium ABG Potassium ABG Chloride ABG Glucose Oxyhemoglobin Sodium Potassium Chloride Carbon Dioxide BUN 65 H Creatinine 8.2 H D Glucose 111 H POC Glucose 122 H 132 H Lactic Acid Calcium Phosphorus Magnesium Total Bilirubin AST ALT Alkaline Phosphatase Total Protein Albumin Triglycerides Arterial Blood Glucose Arterial Blood Ionized Calcium Digoxin Crossmatch 01/22/21 01/22/21 01/23/21 17:17 23:18 05:29 WBC RBC Hgb Hct MCV MCHC RDW Plt Count Lymph % (Auto) [place] % (Auto) Lymph # (Auto) [place] # (Auto) Seg Neutrophils % Seg Neuts % (Manual) Lymphocytes % (Manual) Monocytes % (Manual) Seg Neutrophils # Seg Neutrophils # Man Lymphocytes # (Manual) Monocytes # (Manual) PT INR ABG pH POC ABG pCO2 POC ABG pO2 ABG pO2 ABG HCO3 ABG O2 Saturation ABG Base Excess ABG Hemoglobin ABG Oxyhemoglobin ABG Sodium ABG Potassium ABG Chloride ABG Glucose Oxyhemoglobin Sodium Potassium Chloride Carbon Dioxide BUN Creatinine Glucose POC Glucose 135 H 128 H 129 H Lactic Acid Calcium Phosphorus Magnesium Total Bilirubin AST ALT Alkaline Phosphatase Total Protein Albumin Triglycerides Arterial Blood Glucose Arterial Blood Ionized Calcium Digoxin Crossmatch 01/23/21 01/23/21 01/23/21 05:45 11:28 16:39 WBC RBC Hgb Hct MCV MCHC RDW Plt Count Lymph % (Auto) [place] % (Auto) Lymph # (Auto) [place] # (Auto) Seg Neutrophils % Seg Neuts % (Manual) Lymphocytes % (Manual) Monocytes % (Manual) Seg Neutrophils # Seg Neutrophils # Man Lymphocytes # (Manual) Monocytes # (Manual) PT INR ABG pH POC ABG pCO2 POC ABG pO2 ABG pO2 ABG HCO3 ABG O2 Saturation ABG Base Excess ABG Hemoglobin ABG Oxyhemoglobin ABG Sodium ABG Potassium ABG Chloride ABG Glucose Oxyhemoglobin Sodium Potassium Chloride Carbon Dioxide BUN 96 H Creatinine 10.8 H Glucose 124 H POC Glucose 160 H 116 H Lactic Acid Calcium Phosphorus Magnesium 2.50 H Total Bilirubin AST ALT Alkaline Phosphatase Total Protein Albumin Triglycerides Arterial Blood Glucose Arterial Blood Ionized Calcium Digoxin Crossmatch 01/24/21 01/24/21 01/24/21 00:02 04:45 05:01 WBC RBC Hgb Hct MCV MCHC RDW Plt Count Lymph % (Auto) [place] % (Auto) Lymph # (Auto) [place] # (Auto) Seg Neutrophils % Seg Neuts % (Manual) Lymphocytes % (Manual) Monocytes % (Manual) Seg Neutrophils # Seg Neutrophils # Man Lymphocytes # (Manual) Monocytes # (Manual) PT INR ABG pH POC ABG pCO2 POC ABG pO2 ABG pO2 ABG HCO3 ABG O2 Saturation ABG Base Excess ABG Hemoglobin ABG Oxyhemoglobin ABG Sodium ABG Potassium ABG Chloride ABG Glucose Oxyhemoglobin Sodium Potassium 3.5 L Chloride Carbon Dioxide BUN 56 H Creatinine 7.7 H Glucose 102 H POC Glucose 120 H 108 H Lactic Acid Calcium Phosphorus Magnesium Total Bilirubin AST ALT Alkaline Phosphatase Total Protein Albumin Triglycerides Arterial Blood Glucose Arterial Blood Ionized Calcium Digoxin Crossmatch Allied health notes reviewed: nursing
--- NOTE | 2021-01-24 11:06 | Progress Note ---
Assessment and Plan POD#31 s/p ex lap with extensive lysis of adhesions and two small bowel resections with primary anastamosis for SBO with necrotic segment small bowel. POD#22 s/p ex lap, resection of perforated anastamosis, washout and abthera wound vac placement. POD#20 s/p ex lap with right hemicolectomy. POD#18 s/p ex lap, with jejunal-colonic anastamosis and closure of abdomen. Afebrile and stable. - concerned about a leak at his anastamosis. Clinically improved with decreased output that is becoming more serous. Blood supply was evaluated at time of last surgery with ICG and found to be adequate. Pt was on several days of steroids for tongue swelling which may have contributed to leak. Currently since he is stable and afebrile will treat like controlled fistua. He is extremely high risk for additional surgery with tissues that are extremely friable and previous scar tissue that makes his anatomy very difficult to manipulate. If he requires operative intervention will likely need to be left in discontinuity and eventual ileostomy as he has already failed two anastamoses. Continue HARIS drain suction. Will repalce NGT and monitor output. If HARIS drainage increases significantly will have to talk to patient about the importance of putting it in again. HARIS drain must be secured and kept in place. Since HARIS drain has continued to decrease over the last several days, will continue q 8h ocreotide. No additional changes in management at time. Need to ensure drain is protected during movements. Prognosis is gaurded. Subjective Date of service: 01/24/21 Narrative: No acute events overnight. Pt complains of nausea and now vomiting. Has agreed to NGT replaced. Objective Vital Signs - 12hr 01/23/21 01/24/21 01/24/21 23:57 00:00 00:05 Temperature 100.0 F H Pulse Rate 53 L 70 68 Pulse Rate [ 68 From Monitor] Respiratory 22 15 Rate Blood Pressure 129/64 129/64 O2 Sat by Pulse 99 98 Oximetry 01/24/21 01/24/21 01/24/21 02:00 02:07 02:20 Temperature Pulse Rate 71 74 Pulse Rate [ From Monitor] Respiratory 17 20 Rate Blood Pressure 107/65 107/65 O2 Sat by Pulse 92 Oximetry 01/24/21 01/24/21 01/24/21 02:21 02:50 03:35 Temperature 99.0 F Pulse Rate 68 Pulse Rate [ From Monitor] Respiratory 16 Rate Blood Pressure 124/67 O2 Sat by Pulse Oximetry 01/24/21 01/24/21 01/24/21 04:00 06:00 06:16 Temperature Pulse Rate 67 70 72 Pulse Rate [ 67 From Monitor] Respiratory 15 13 Rate Blood Pressure 131/68 149/75 148/73 O2 Sat by Pulse 95 99 Oximetry 01/24/21 08:00 Temperature 98.9 F Pulse Rate 75 Pulse Rate [ 67 From Monitor] Respiratory 25 H Rate Blood Pressure 153/74 O2 Sat by Pulse 92 Oximetry - General physical appearance well developed, well nourished, no distress, no pain - Respiratory normal expansion, normal respiratory effort - Abdomen soft, not tender, other (HARIS drain with 85cc recorded last 24 hours, bilious, wound vac unchanged) - Labs 01/20/21 03:35 01/24/21 04:45 Diabetes panel 01/24/21 Range/Units 04:45 Sodium 140 (137-145) mmol/L Potassium 3.5 L (3.6-5.0) mmol/L Chloride 99.5 (98-107) mmol/L Carbon Dioxide 28 (22-30) mmol/L BUN 56 H (9-20) mg/dL Creatinine 7.7 H (0.8-1.3) mg/dL Glucose 102 H (75-100) mg/dL Calcium 8.4 (8.4-10.2) mg/dL Calcium panel 01/24/21 Range/Units 04:45 Calcium 8.4 (8.4-10.2) mg/dL Pituitary panel 01/24/21 Range/Units 04:45 Sodium 140 (137-145) mmol/L Potassium 3.5 L (3.6-5.0) mmol/L Chloride 99.5 (98-107) mmol/L Carbon Dioxide 28 (22-30) mmol/L BUN 56 H (9-20) mg/dL Creatinine 7.7 H (0.8-1.3) mg/dL Glucose 102 H (75-100) mg/dL Calcium 8.4 (8.4-10.2) mg/dL Adrenal panel 01/24/21 Range/Units 04:45 Sodium 140 (137-145) mmol/L Potassium 3.5 L (3.6-5.0) mmol/L Chloride 99.5 (98-107) mmol/L Carbon Dioxide 28 (22-30) mmol/L BUN 56 H (9-20) mg/dL Creatinine 7.7 H (0.8-1.3) mg/dL Glucose 102 H (75-100) mg/dL Calcium 8.4 (8.4-10.2) mg/dL
--- NOTE | 2021-01-24 11:24 | Progress Note ---
Assessment and Plan - Patient Problems (1) Atrial fibrillation Current Visit: Yes Status: Acute Plan to address problem: Cardiac status stable and asymptomatic. Continue medical therapy as outlined for paroxysmal atrial fibrillation. Subjective Date of service: 01/24/21 Principal diagnosis: Ac hypoxemic resp failure; Severe Sepsis; Peritonitis; Acute SBO; ESRD; CHF Interval history: Patient is comfortable, no acute distress. Heart rate is 74, normal sinus rhythm, blood pressure 140 systolic Objective Vital Signs Temp Pulse Pulse Resp Resp BP Pulse Ox 01/24/21 08:00 98.9 F 75 67 25 H 153/74 92 01/24/21 06:16 72 148/73 01/24/21 06:00 70 13 149/75 99 01/24/21 04:00 67 67 15 131/68 95 01/24/21 03:35 99.0 F 01/24/21 02:50 16 01/24/21 02:21 68 124/67 01/24/21 02:20 20 01/24/21 02:07 74 107/65 01/24/21 02:00 71 17 107/65 92 01/24/21 00:05 68 01/24/21 00:00 100.0 F H 70 68 15 129/64 98 01/23/21 23:57 53 L 22 129/64 99 01/23/21 22:00 67 17 127/63 94 01/23/21 21:01 70 133/69 01/23/21 20:52 16 01/23/21 20:22 15 01/23/21 20:20 16 01/23/21 20:10 68 01/23/21 20:00 98.7 F 68 68 18 126/70 98 01/23/21 18:00 67 25 H 135/73 01/23/21 16:00 98.0 F 64 67 14 126/68 98 01/23/21 14:00 74 15 118/61 01/23/21 13:30 97.9 F 74 15 122/64 01/23/21 13:00 74 122/64 01/23/21 12:45 74 111/57 01/23/21 12:30 79 128/59 01/23/21 12:15 89 140/62 01/23/21 12:00 97.9 F 89 67 14 106/53 98 01/23/21 11:45 74 106/53 01/23/21 11:30 89 115/52 - Physical Examination General: Appears Well, No Apparent Distress HEENT: Positive: PERRL Neck: Positive: neck supple Cardiac: Positive: Reg Rate and Rhythm Lungs: Positive: Decreased Breath Sounds Neuro: Positive: Grossly Intact Abdomen: Positive: Soft, Other (post op) Skin: Positive: Clear Extremities: Absent: edema - Labs and Meds Comprehensive Metabolic Panel 01/24/21 Range/Units 04:45 Sodium 140 (137-145) mmol/L Potassium 3.5 L (3.6-5.0) mmol/L Chloride 99.5 (98-107) mmol/L Carbon Dioxide 28 (22-30) mmol/L BUN 56 H (9-20) mg/dL Creatinine 7.7 H (0.8-1.3) mg/dL Glucose 102 H (75-100) mg/dL Calcium 8.4 (8.4-10.2) mg/dL - Allied health notes Allied health notes reviewed: nursing
[2021-01-24] MEDS ORDERED: POTASSIUM CHLORIDE ER 20 MEQ TAB PO ONE (11:36)
--- NOTE | 2021-01-24 11:36 | Progress Note ---
Assessment and Plan Assessment and plan: This is a 60 YO Male with ESRD on PD, GERD, Crohn's Disease, Nicotine Dependence, HTN, Systolic CHF(EF 35%) who presented to the emergency department on 12/22 with complaints of abdominal pain which began shortly after eating fast food rated 10/10 which is periumbilical, constant, associated with fever, nausea and multiple sites of vomiting and self-reported inability to undergo PD. In the emergency room patient underwent a CT scan of the abdomen/pelvis which revealed evidence of partial small bowel obstruction, symptoms were consistent with bacterial peritonitis. Patient was admitted to the hospital service with sepsis, peritonitis, and small bowel obstruction with consults to general surgery, nephrology, infectious disease and [facility]. 12/23. Patient had temperature 101.2 F, tachycardia and elevated lactic acid on admission. Meet sepsis criteria. Started on IV antibiotics. ID has been c onsulted. Surgery consulted this a.m.-advised laparoscopy. He remains on NG tube connected to suction. 12/24. Patient was noted to have peritonitis yesterday and patient undergoing exploratory laparotomy. Patient remained intubated after procedure and is in ICU. Now on broad-spectrum antibiotics. ID on board. 12/25. Remains mechanically ventilated and sedated. Temp 103 Fahrenheit. Antibiotics broadened-ID added fluconazole and Flagyl. Blood cultures ordered. Plan to repeat CT abdomen tomorrow if not better. Surgery following. 12/26: Patient remains on mechanical ventilation on CMV tidal line 550, rate of 14, PEEP of 8 and 30% FiO2 and sedated on fentanyl 4 micrograms. Today we will remove his Jeffery and CCM dropped his rate controlled him on CPAP. We will trend CBC given recent drop in H/H. 12/27: Patient remains intubated on CMV tidal volume 550, rate 12, PEEP 8 on 30% FiO2 at the time my examination. Patient's TPN will be changed to PPN. Patient's fentanyl drip will be changed to IV push fentanyl and have a permacath placed today and midline. Patient was placed on a spontaneous breathing trial was switched back to CMV prior to procedure. 12/28: Patient on fentanyl but awake and follows commands. At the time of my examination he was on a CPAP trial and is scheduled to receive HD today. s/o permacath and PICC placement with vascular yesterday. His blood culture grew Prevotella and addition to Streptococcus bovis. This evening Dr. Spicer attempted to extubate the patient and his heart rate went to the 180s. Stat EKG obtained and cardiology consulted. 12/29: Patient was started on amiodarone IV for A. fib RVR yesterday and today he is more rate controlled into the 70s and 80s. Patient was extubated yesterday and is currently on Ventimask. Patient will be transferred to [facility]. Patient continues to be n.p.o. with TPN and NG tube to LIS. He is hypokalemic today which was repleted. 12/30; patient was on IV amiodarone for treatment with RVR, rate is controlled. Patient was off oxygen. patient is n.p.o. and on TPN. Surgery is following the patient. 12/31: Patient was intubated overnight for respiratory distress and this morning on examination he was on assist control tidal volume 450, rate 20, PEEP 6, 100% FiO2 and RT was getting a ABG to adjust vent settings. Patient had a acute bump in WBC and per ID recommendations we will obtain a CT abdomen/pelvis if leukocytosis persist. Patient is on TPN and sedated with Levophed. Patient is also on vasopressor support with Levophed. Per surgery his ileus is resolving however will maintain OGT to LIWS. 01/01: Patient was started on a vasopressin yesterday late evening. This morning patient is on 20 mcg of Levophed and 0.03 vasopressin and sedated on 20 mcg of propofol. Patient WBC increased today and he is hypokalemic. We will treat hyperkalemia. Patient had a CT chest and abdomen/pelvis pending. The time examination total of 450, rate 20, PEEP of 6 and 35 percent FiO2. Per RN, Dr Pollock has stated that the patient will be returning to the OR today for likely anastomosis seen on CT abdomen/pelvis. 01/02: Patient noted, WBC improving, but noted to have anemia, will transfuse additional unit of Blood and repeat H/H. continue supportive care. 01/03: Continue to wean pressors, ABX PER ID, patient to return to OR today for washout and possible closure, CONTINUE TPN 01/04: Continues to show some improvement. Today is POD#12 s/p ex lap with extensive lysis of adhesions and two small bowel resections with primary anastamosis for SBO with necrotic segment small bowel. POD#3 s/p ex lap, resection of perforated anastamosis, washout and abthera wound vac placement. POD#1 s/p ex lap with right hemicolectomy. Surgery planning to take back to the OR on Saturday with the hope to anastamos ileum to transverse colon and close abdomen. keep NGT to suction. Pt in deep sedation due to open abdomen. Per ID - Continue IV Zosyn, renally dosed for Strep bacteremia treatment till 01/06/2021 -On TPN 01/05: Patient continues on HD, anticipate return to OR tomorrow for closure and anastemosis. Continues with deep sedation due to open abdomen 01/06: Continue supportive care, monitor pressures and electrolytes. He is post op Exploratory laparotomy, 2. Jejunal colonic anastomosis,3. Segmental small bowel resection and anastemosis closure today. Continue wound vac 01/07: Continue supportive care, Today is POD#15 s/p ex lap with extensive lysis of adhesions and two small bowel resections with primary anastamosis for SBO with necrotic segment small bowel. POD#6 s/p ex lap, resection of perforated anastamosis, washout and abthera wound vac placement. POD#4 s/p ex lap with right hemicolectomy. POD #1 exploratory laparotomy, 2. Jejunal colonic anastomosis,3. Segmental small bowel resection. Continue to monitor and correct electrolytes. Patient remains on fentanyl and TPN with lipids. Still hypoactive bowel sounds. 16: Patient now extubated, asked when he can go home, Still lethargic. Continue wound management, wound vac, Will need Rehab eval prior to discharge. 01/09: Patient remains on TPN, was started on labetalol drip per cardiology, africa dueñas had uncontrolled hypertension today however he cannot be given p.o. medications ileus resolves per surgery. Patient received hemodialysis today. NG tube remains to low intermittent suction. 01/10: Patient has some leukocytosis, slight hypokalemia and hyponatremia, metabolic acidosis. NG tube to LIWS, continue TPN. Patient will be downgraded to IMCU today. [facility] is working on placement. Will change frequency of hydralazine and discontinue labetalol drip. We will obtain a.m. BMP/mag/Phos and CBC. Infectious disease will like to start Zosyn if leukocytosis continues to worsen. 01/11: Patient leukocytosis has slightly improved potassium with in normal limits and other electrolytes are elevated but patient is scheduled for HD today. Remains on RA and A,A,Ox4. BP better controlled but remains elevated and we will increase clonidine dose. 01/12/2021; patient's blood pressure is better after dialysis and as needed IV medications and clonidine patch. Patient is followed by general surgery. Patient was alert and oriented and asked when he is going home. 01/13: Surgery is concerned about a leak at his anastamosis given increased output and will treat as controlled fistula and start an octreotide drip. And per surgery if he requires operative intervention will likely need to be left in discontinuity and eventual ileostomy as he has already failed two anastamoses. Patient still has tongue swelling and slurred speech. He is on Benadryl. 01/14: Patient's tongue swelling is improved, patient is alert and oriented, CAM ICU negative. Continue NG tube to low wall intermittent suction. Leukocytosis is improving. Hypomagnesemia resolved. Epogen with HD 01/15: Patient tongue swelling is much improved, bladder scan completed by bedside RN and he needed to be straight cathed. NGT output decreased. Leukocytosis improving. Patient has been having episodes of hypoglycemia during the day and he is on cyclic TPN, Lantus rescheduled to nightly and dosage decreased. 01/16: Continue management per ID and surgery. Will defer repeat CT of the abdomen to the team surgery has been approved by nephrology. Continue current diet and advance all to ice if okay with surgery discussed with nursing staff. 01/17: Discussed surgical recommendation of strict n.p.o. except for small amount of ice as patient has already failed to anastomosis. And risk for additional surgery with tissues were extremely friable from previous scar. He continues on octreotide drip to slow down GI output HARIS drain remains in place with NG suction for decompression. Patient verbalized understanding although stressed about being discharged. We will continue IMCU care unless otherwise advised by david andersen. Prognosis remains guarded continue to monitor electrolytes considering GI output. 01/18: Continue supportive care, BP mildly elevated, continue to monitor, continue current therapy, if no return to PO soon may consider Increasing clonidine to 0.3, PO when ok with surgery. 01/19:Continue supportive care, Per ID continue IV Zosyn, plan to stop at 3 weeks from last surgery end date: 01/24/2021. Other management per surgery. Continue TPN. 01/20: Discussed with Surgery, will continue current management. Advised patient of the findings and plan. 01/21: Continue supportive care. Continue management per surgery advance diet when okay with surgery. Plan of care discussed with the patient in detail. 01/22: NG tube to be replaced explained to the patient why this is important. I agree with PT OT discussed with nursing staff very important to let the PT team know that they should manage HARIS drain while patient is ambulating so that he does not come out. Continue current management. Change in ocreotide to q8h and d/c drip NOTED 01/23: Continue supportive care, HD today, counselling provided to the patient on compliance with medical management 01/24: Replace NGT, Continue management per Surgery. POD 32. Mild hypokalemia noted, will replace. Severe Sepsis with shock Streptococcus bovis bacteremia/Prevotella bacteremia Gwendolyn albicans tracheal aspirate Small bowel obstruction/necrotic bowel s/p ex lap with extensive lysis of adhesions, 2 small bowel resections with primary anastomosis, right hemicolectomy, jejunal colonic anastomosis, segmental small bowel resection Postoperative ileus Atrial fibrillation with RVR Leukocytosis Hypochloremia Gwendolyn albicans in tracheal aspirate from 12/24 ESRD on PD, PermCath to be placed Transaminitis Systolic CHF(EF 35%) Crohn's disease Hypertension -[facility], surgery, infectious disease, nephrology, vascular surgery, cardiology consulted, appreciate recommendations -12/24 S/p ex lap with extensive expectations, 2 small bowel resections with primary anastomosis with surgery on 12/23 -s/p PICC and Permacath placement with vascular surgery on 12/27 -Extubated on 12/28, reintubated 12/31 for respiratory distress and extubated 01/08 -12/29 echocardiogram shows moderate concentric LVH, small pericardial effusion, transmitral Doppler flow pattern is grade 1 abnormal relaxation pattern, left- ventricular systolic function normal, LVEF 50 to 55%, no wall motion abnormalities. -01/01 CT abdomen/pelvis shows small pericardial effusion, mild coronary artery atherosclerotic calcification, small bilateral pleural effusions with associated volume loss, no convincing evidence of bowel obstruction or inflammation, postoperative changes from interval/recent midline laparotomy with a moderate amount of free fluid throughout the abdomen, small amount of dependent free air presumably postoperative -01/02 s/p ex lap, resection of perforated anastamosis, washout and abthera wound vac placement. -01/04 s/p ex lap with right hemicolectomy. -01/06 s/p exploratory laparotomy, Jejunal colonic anastomosis, Segmental small bowel resection. -s/p Vasopressor support with Levophed and vasopressin -Transitioned to HD from PD -HD per nephro, Epogen with HD -Strict NPO -TPN -Octreotide drip -NGT to LIWS -s/p IV antibiotics -Tobacco abuse cessation counseling -Trend CBC, BMP DVT/GI prophylaxis: PPI, heparin subcu, SCDs to bilateral lower extremities while in bed Disposition: IMCU History Interval history: This is a 60-year-old male with ESRD on peritoneal dialysis, Crohn's, hypertension, systolic CHF (EF 35%) who was admitted with sepsis, peritonitis, small bowel obstruction and now has gram-positive cocci bacteremia. Patient seen and examined, Noted nausea and vomiting, Currently undergoing HD Hospitalist Physical - Physical exam Narrative exam: General appearance: Present: no acute distress, Dry oropharyngeal area. - EENT Eyes: Present: PERRL ENT: poor dentition - Neck Neck: Absent: masses or JVD, cervical LAD - Respiratory Respiratory effort: normal Respiratory: bilateral: diminished - Cardiovascular Rhythm: irregularly irregular Heart Sounds: Present: S1 & S2. Absent: systolic murmur, diastolic murmur - Extremities Extremities: no ischemia, pulses intact, pulses symmetrical, No edema, normal temperature, normal color Peripheral Pulses: within normal limits - Abdominal General gastrointestinal: distended, abdomen dressing, rigid, w HARIS drain in place. Hypoactive bowel sounds. - Integumentary Integumentary: Present: Left chest permacath - Neurologic Neurologic: Awake alert oriented moves extremities, SPEECH IS NORMAL - Allied Health Allied health notes reviewed: nursing - Constitutional Vitals: Temp Pulse Resp BP Pulse Ox 98.9 F 74 16 153/74 96 01/24/21 08:00 01/24/21 10:00 01/24/21 10:00 01/24/21 10:01/24/21 10:00 General appearance: Present: no acute distress HEART Score - HEART Score Troponin: Troponin T 0.021 ng/mL (0.00-0.029) 12/22/20 14:38 Results - Labs CBC & Chem 7: 01/20/21 03:35 01/24/21 04:45 Labs: Laboratory Last Values WBC 12.0 K/mm3 (4.5-11.0) H 01/20/21 03:35 RBC 2.62 M/mm3 (3.65-5.03) L 01/20/21 03:35 Hgb 8.3 gm/dl (11.8-15.2) L 01/20/21 03:35 Hct 23.2 % (35.5-45.6) L 01/20/21 03:35 MCV 89 fl (84-94) 01/20/21 03:35 MCH 32 pg (28-32) 01/20/21 03:35 MCHC 36 % (32-34) H 01/20/21 03:35 RDW 15.2 % (13.2-15.2) 01/20/21 03:35 Plt Count 230 K/mm3 (140-440) 01/20/21 03:35 Lymph % (Auto) 4.4 % (13.4-35.0) L 01/13/21 03:45 [place] % (Auto) 10.3 % (0.0-7.3) H 01/13/21 03:45 Eos % (Auto) 0.9 % (0.0-4.3) 01/13/21 03:45 Baso % (Auto) 0.2 % (0.0-1.8) 01/13/21 03:45 Lymph # (Auto) 0.8 K/mm3 (1.2-5.4) L 01/13/21 03:45 [place] # (Auto) 1.8 K/mm3 (0.0-0.8) H 01/13/21 03:45 Eos # (Auto) 0.2 K/mm3 (0.0-0.4) 01/13/21 03:45 Baso # (Auto) 0.0 K/mm3 (0.0-0.1) 01/13/21 03:45 Add Manual Diff Complete 01/10/21 09:26 Total Counted 100 01/10/21 09:26 Seg Neutrophils % 84.2 % (40.0-70.0) H 01/13/21 03:45 Seg Neuts % (Manual) 95.0 % (40.0-70.0) H 01/10/21 09:26 Band Neutrophils % 1.0 % 01/10/21 09:26 Lymphocytes % (Manual) 3.0 % (13.4-35.0) L 01/10/21 09:26 Reactive Lymphs % (Man) 1.0 % 12/29/20 05:16 Monocytes % (Manual) 1.0 % (0.0-7.3) 01/10/21 09:26 Eosinophils % (Manual) 2.0 % (0.0-4.3) 12/29/20 05:16 Metamyelocytes % 2.0 % 12/29/20 05:16 Nucleated RBC % Not Reportable 01/10/21 09:26 Seg Neutrophils # 14.8 K/mm3 (1.8-7.7) H 01/13/21 03:45 Seg Neutrophils # Man 17.3 K/mm3 (1.8-7.7) H 01/10/21 09:26 Band Neutrophils # 0.2 K/mm3 01/10/21 09:26 Lymphocytes # (Manual) 0.5 K/mm3 (1.2-5.4) L 01/10/21 09:26 Abs React Lymphs (Man) 0.0 K/mm3 01/10/21 09:26 Monocytes # (Manual) 0.2 K/mm3 (0.0-0.8) 01/10/21 09:26 Eosinophils # (Manual) 0.0 K/mm3 (0.0-0.4) 01/10/21 09:26 Basophils # (Manual) 0.0 K/mm3 (0.0-0.1) 01/10/21 09:26 Metamyelocytes # 0.0 K/mm3 01/10/21 09:26 Myelocytes # 0.0 K/mm3 01/10/21 09:26 Promyelocytes # 0.0 K/mm3 01/10/21 09:26 Blast Cells # 0.0 K/mm3 01/10/21 09:26 WBC Morphology Not Reportable 01/10/21 09:26 Hypersegmented Neuts Not Reportable 01/10/21 09:26 Hyposegmented Neuts Not Reportable 01/10/21 09:26 Hypogranular Neuts Not Reportable 01/10/21 09:26 Smudge Cells Not Reportable 01/10/21 09:26 Toxic Granulation 1+ 01/10/21 09:26 Toxic Vacuolation Not Reportable 01/10/21 09:26 Dohle Bodies Not Reportable 01/10/21 09:26 Pelger-Huet Anomaly Not Reportable 01/10/21 09:26 Lamar Rods Not Reportable 01/10/21 09:26 Platelet Estimate Consistent w auto 01/10/21 09:26 Clumped Platelets Not Reportable 01/10/21 09:26 Plt Clumps, EDTA Not Reportable 01/10/21 09:26 Large Platelets Not Reportable 01/10/21 09:26 Giant Platelets Not Reportable 01/10/21 09:26 Platelet Satelliting Not Reportable 01/10/21 09:26 Plt Morphology Comment Not Reportable 01/10/21 09:26 RBC Morphology Not Reportable 01/10/21 09:26 Dimorphic RBCs Not Reportable 01/10/21 09:26 Polychromasia Not Reportable 01/10/21 09:26 Hypochromasia Not Reportable 01/10/21 09:26 Poikilocytosis Not Reportable 01/10/21 09:26 Anisocytosis 1+ 01/10/21 09:26 Microcytosis Not Reportable 01/10/21 09:26 Macrocytosis Not Reportable 01/10/21 09:26 Spherocytes Not Reportable 01/10/21 09:26 Pappenheimer Bodies Not Reportable 01/10/21 09:26 Sickle Cells Not Reportable 01/10/21 09:26 Target Cells Not Reportable 01/10/21 09:26 Tear Drop Cells Not Reportable 01/10/21 09:26 Ovalocytes Not Reportable 01/10/21 09:26 Helmet Cells Not Reportable 01/10/21 09:26 [place] Bodies Not Reportable 01/10/21 09:26 Dexter Rings Not Reportable 01/10/21 09:26 Jenny Cells Not Reportable 01/10/21 09:26 Bite Cells Not Reportable 01/10/21 09:26 Crenated Cell Not Reportable 01/10/21 09:26 Elliptocytes Not Reportable 01/10/21 09:26 Acanthocytes (Spur) Not Reportable 01/10/21 09:26 Rouleaux Not Reportable 01/10/21 09:26 Hemoglobin C Crystals Not Reportable 01/10/21 09:26 Schistocytes Not Reportable 01/10/21 09:26 Malaria parasites Not Reportable 01/10/21 09:26 Lucas Bodies Not Reportable 01/10/21 09:26 Hem Pathologist Commnt No 01/10/21 09:26 PT 16.9 Sec. (12.2-14.9) H 01/01/21 12:45 INR 1.39 (0.87-1.13) H 01/01/21 12:45 APTT 25.1 Sec. (24.2-36.6) 12/22/20 14:38 ABG pH 7.345 pH Units (7.350-7.450) L 01/07/21 17:14 POC ABG pCO2 41.4 mmHg (32.0-48.0) 01/07/21 03:07 ABG pCO2 40.3 mm Hg 01/07/21 17:14 POC ABG pO2 94.5 mmHg (83-108) 01/07/21 03:07 ABG pO2 67.4 mm Hg (80.0-90.0) L 01/07/21 17:14 POC ABG HCO3 22.7 01/07/21 03:07 ABG HCO3 21.5 mmol/L (20.0-26.0) 01/07/21 17:14 ABG O2 Saturation 94.3 % (95.0-99.0) L 01/07/21 17:14 ABG O2 Content 11.6 (0.0-44) 01/07/21 17:14 POC ABG Base Excess -2.7 01/07/21 03:07 ABG Base Excess -3.9 mmol/L (-2.0-3.0) L 01/07/21 17:14 ABG Hemoglobin 8.9 gm/dl (14.0-18.0) L 01/07/21 17:14 ABG Oxyhemoglobin 96.6 (94-98) 01/07/21 03:07 ABG Carboxyhemoglobin 1.5 % (0.0-5.0) 01/07/21 17:14 ABG Methemoglobin 0.6 % (0.0-1.5) 01/07/21 17:14 ABG Sodium 135.6 mmol/L (136.0-145.0) L 01/07/21 03:07 ABG Potassium 4.0 mmol/L (3.40-4.50) 01/07/21 03:07 ABG Chloride 102.0 mmol/L (98-107) 01/07/21 03:07 ABG Glucose 181 mg/dL (65-95) H 01/07/21 03:07 Oxyhemoglobin 92.3 % (95.0-99.0) L 01/07/21 17:14 Carboxyhemoglobin 0.7 (0.5-1.5) 01/07/21 03:07 FiO2 21 % 01/07/21 17:14 FiO2 % 45.0 01/07/21 03:07 Sodium 140 mmol/L (137-145) 01/24/21 04:45 Potassium 3.5 mmol/L (3.6-5.0) L 01/24/21 04:45 Chloride 99.5 mmol/L (98-107) 01/24/21 04:45 Carbon Dioxide 28 mmol/L (22-30) 01/24/21 04:45 Anion Gap 16 mmol/L 01/24/21 04:45 BUN 56 mg/dL (9-20) H 01/24/21 04:45 Creatinine 7.7 mg/dL (0.8-1.3) H 01/24/21 04:45 Estimated GFR 9 ml/min 01/24/21 04:45 BUN/Creatinine Ratio 7 % 01/24/21 04:45 Glucose 102 mg/dL (75-100) H 01/24/21 04:45 POC Glucose 108 mg/dL (70-105) H 01/24/21 05:01 Lactic Acid 1.10 mmol/L (0.7-2.0) 01/14/21 05:39 Calcium 8.4 mg/dL (8.4-10.2) 01/24/21 04:45 Phosphorus 2.60 mg/dL (2.5-4.5) 01/23/21 05:45 Magnesium 1.90 mg/dL (1.7-2.3) 01/24/21 04:45 Total Bilirubin 0.60 mg/dL (0.1-1.2) 01/21/21 04:39 AST 28 units/L (5-40) 01/21/21 04:39 ALT 25 units/L (7-56) 01/21/21 04:39 Alkaline Phosphatase 143 units/L (35-129) H 01/21/21 04:39 Ammonia 30.0 umol/L (25-60) 12/22/20 14:38 Troponin T 0.021 ng/mL (0.00-0.029) 12/22/20 14:38 Total Protein 6.1 g/dL (6.3-8.2) L 01/21/21 04:39 Albumin 3.0 g/dL (3.9-5) L 01/21/21 04:39 Albumin/Globulin Ratio 1.0 % 01/21/21 04:39 Triglycerides 73 mg/dL (2-149) 01/18/21 04:19 Lipase 41 units/L (13-60) 12/22/20 14:38 Procalcitonin > 200.00 ng/mL (<0.15) 12/24/20 15:06 TSH 1.470 mlU/mL (0.270-4.200) 12/28/20 19:44 Arterial Blood Glucose 181 mg/dL (65-95) H 01/07/21 03:07 Arterial Blood Ionized Calcium 4.3 mg/dL (4.6-5.3) L 01/07/21 03:07 Urine Color Yellow (Yellow) 12/22/20 18:53 Urine Turbidity Clear (Clear) 12/22/20 18:53 Urine pH 7.0 (5.0-7.0) 12/22/20 18:53 Ur Specific [place] 1.012 (1.003-1.030) 12/22/20 18:53 Urine Protein >500 mg/dL (Negative) 12/22/20 18:53 Urine Glucose (UA) Neg mg/dL (Negative) 12/22/20 18:53 Urine Ketones Neg mg/dL (Negative) 12/22/20 18:53 Urine Blood Neg (Negative) 12/22/20 18:53 Urine Nitrite Neg (Negative) 12/22/20 18:53 Urine Bilirubin Neg (Negative) 12/22/20 18:53 Urine Urobilinogen < 2.0 mg/dL (<2.0) 12/22/20 18:53 Ur Leukocyte Esterase Neg (Negative) 12/22/20 18:53 Urine WBC (Auto) < 1.0 /HPF (0.0-6.0) 12/22/20 18:53 Urine RBC (Auto) 1.0 /HPF (0.0-6.0) 12/22/20 18:53 Fluid Type Dialysate 12/22/20 Unknown Fluid Color Colorless 12/22/20 Unknown Fluid Appearance Cloudy 12/22/20 Unknown Fluid WBC 208 /mm3 12/22/20 Unknown Fluid RBC 45 /mm3 12/22/20 Unknown Fluid Seg Neutrophils 82.0 % 12/22/20 Unknown Fluid Lymphocytes 11.0 % 12/22/20 Unknown Fluid Reactive Lymphs 0 % 12/22/20 Unknown Fluid Monocytes 7.0 % 12/22/20 Unknown Fluid Eosinophils 0 % 12/22/20 Unknown Fluid Basophils 0 % 12/22/20 Unknown Random Vancomycin 13.7 ug/mL (0-40.0) 12/26/20 Unknown Digoxin 0.8 ng/mL (0.9-2.0) L 01/11/21 05:18 Hepatitis A IgM Ab Non-reactive (NonReactive) 12/23/20 11:38 Hep Bs Antigen Non-reactive (Negative) 12/23/20 11:38 Hep B Core IgM Ab Non-reactive (NonReactive) 12/23/20 11:38 Hepatitis C Antibody Non-reactive (NonReactive) 12/23/20 11:38 Blood Type A POSITIVE 01/06/21 07:10 Antibody Screen Negative 01/06/21 07:10 Crossmatch See Detail 01/06/21 07:10 Microbiology: Microbiology 12/22/20 14:28 Peripheral/Venous Blood Culture - Final Prevotella Oralis Group Jeffery/IV: Voiding Method Self-Catheterization Active Medications - Current Medications Current Medications: Generic Name Dose Route Start Last Admin Trade Name Freq PRN Reason Stop Dose Admin Acetaminophen 650 mg 12/31/20 15:30 01/21/21 05:28 Acetaminophen 650 Mg Rect Supp DC 650 mg Q6H PRN Administration Non Cardiac Pain or Temp>100.5 Clonidine HCl 0.2 mg 01/11/21 10:00 01/18/21 10:11 Clonidine Tts 0.2 Mg/24 Hr Patch TD 0.2 mg We THOMAS Administration Dextrose 50 ml 01/14/21 17:59 01/18/21 15:10 Dextrose 50% In Water (25gm) 50 Ml Syringe IV 20 ml Q30MIN PRN Administration Hypoglycemia Protocol Digoxin 0.125 mg 01/09/21 12:00 01/23/21 15:19 Digoxin 0.5 Mg/2 Ml Inj IV 0.125 mg Q48H THOMAS Administration Diphenhydramine HCl 50 mg 01/20/21 10:10 01/24/21 02:21 Diphenhydramine 50 Mg/Ml Vial IV 50 mg Q6H PRN Administration Itching Famotidine 10 mg 12/24/20 13:00 01/24/21 10:01 Famotidine 20 Mg/2 Ml Inj IV 10 mg BID THOMAS Administration Haloperidol Lactate 5 mg 12/29/20 14:16 01/22/21 23:56 Haloperidol Lactate 5 Mg/1 Ml Inj IV 5 mg Q12H PRN Administration Agitation Heparin Sodium (Porcine) 5,000 unit 12/24/20 10:00 01/24/21 10:01 Heparin 5,000 Unit/1 Ml Vial SUB-Q 5,000 unit Q12HR THOMAS Administration Hydralazine HCl 10 mg 01/10/21 14:00 01/24/21 10:01 Hydralazine 20 Mg/1 Ml Inj IV 10 mg Q4HR THOMAS Administration Hydromorphone HCl 0.25 mg 01/09/21 10:53 01/24/21 10:00 Hydromorphone 1 Mg/1 Ml Inj IV 0.25 mg Q6H PRN Administration Pain , Severe (7-10) Hydrophilic Ointment 1 applic 12/31/20 06:39 01/11/21 21:28 Lip Therapy Vaseline TP 1 applic Q2HR PRN Administration Dry Lips Piperacillin Sod/Tazobactam Sod 2.25 gm in 50 mls @ 100 mls/hr 01/13/21 12:00 01/24/21 04:32 Zosyn/Ns 2.25 Gm/50ml IV 01/24/21 20:29 100 mls/hr Q8H THOMAS Administration Protocol Sodium Chloride 100 mls @ 999 mls/hr 01/19/21 09:30 Nacl 0.9% IV [place] PRN Hypotension Octreotide Acetate 100 mcg/ 101 mls @ 200 mls/hr 01/21/21 15:00 01/24/21 06:16 Sodium Chloride IV 200 mls/hr Q8H THOMAS Administration Amino Acids/Electrolytes/Dextrose 2,016 mls @ 84 mls/hr 01/23/21 20:00 01/23/21 20:23 Tpn Adult IV 01/24/21 19:59 84 mls/hr DAILY@1999 THOMAS Administration Protocol Amino Acids/Electrolytes/Dextrose 2,016 mls @ 84 mls/hr 01/24/21 20:00 Tpn Adult IV 01/25/21 19:59 DAILY@1999 [facility] Protocol Insulin Glargine 5 units 01/18/21 22:00 01/23/21 21:03 Insulin Glargine 100 Units/Ml SUB-Q 5 units QHS THOMAS Administration Insulin Human Lispro 0 unit 01/03/21 12:00 01/24/21 06:19 Insulin Lispro 100 Unit/Ml SUB-Q Not Given Q6HR [facility] Protocol Metoprolol Tartrate 5 mg 12/30/20 12:00 01/24/21 10:01 Metoprolol Tartrate 5 Mg/5 Ml Inj IV 5 mg Q4HR THOMAS Administration Multi-Ingred Cream/Lotion/Oil/Oint 1 applic 12/31/20 06:39 Mineral Oil/Petrolatum, White Ophth Oint 3.5 Gm OU Q4HR PRN Dry Eye(s) Scopolamine 1 each 01/15/21 11:00 01/24/21 10:01 Scopolamine Transdermal Patch 72 Hr TD 1 each Q3D THOMAS Administration Sodium Chloride 10 ml 12/22/20 22:00 01/24/21 10:02 Sodium Chloride 0.9% 10 Ml Flush Syringe IV 10 ml BID THOMAS Administration Sodium Chloride 10 ml 12/22/20 19:42 01/09/21 17:27 Sodium Chloride 0.9% 10 Ml Flush Syringe IV 10 ml PRN PRN Administration LINE FLUSH Nutrition/Malnutrition Assess - Dietary Evaluation Nutrition/Malnutrition Findings: Nutrition Notes Start: 12/24/20 12:36 Freq: Status: Active Protocol: Document 01/24/21 10:29 LP (Rec: 01/24/21 10:38 LP [id number]) Nutrition Notes Initial or Follow up Reassessment Current Diagnosis CKD (stage V CKD),Sepsis, Hypertension,Heart Failure, Small Bowel Obstruction Other Pertinent Diagnosis Peritonitis, SBO s/p resection Current Diet CPN at 84 ml/hr Labs/Tests Mg 1.9 Pertinent Medications Reviewed Height 5 ft 7 in Weight 80 kg [place] Body Weight (kg) 67.27 BMI 27.6 Weight Status Overweight Subjective/Other Information TPN day 30. Pt continues with rectal tube. Percent of energy/protein needs met: 100%/100% Burn Absent Trauma Absent Current % PO Negligible Minimum of two criteria No #2 Nutrition Diagnosis Increased nutrient needs ( specify in comment below) Diagnosis Progress(for reassessment Continues documentation) #1 Nutrition Diagnosis Inadequate oral intake Diagnosis Progress(for reassessment Continues documentation) Is patient on ventilator? No Is Patient Ambulatory and/or Out of Bed No REE-([place]-confined to bed) 1875.348 Kcal/Kg value to use for calculation 21 Approximate Energy Requirements Using 1680 kcal/Kg Calculation Used for Recommendations Kcal/kg Additional Notes Pro needs: 101-121 g/day (1.25 -1.5 g/kg AdjBW, 81kg) Fluid needs per MD. Nutrition Intervention Change Diet Order: Continue CPN Nutrition Support: Continous CPN at 84 ml/hr: 15mEq K MVI Kcal 1,674 Protein (gm) 121 Carbohydrates (gm) 350 Fat (gm) 50 Fluid (mL) 2,266 Fiber (gm) 0 Goal #1 Meet at least 75% of estimated energy and protein needs via CPN Anticipated Discharge Needs: continuous TPN at 84ml/hr Follow-Up By: 01/25/21 Additional Comments Lab in Am: [facility]
[2021-01-24] MEDS ORDERED: POTASSIUM CHLORIDE 20 MEQ 20 MEQ/100 ML BAG IV ONE (12:00)
--- NOTE | 2021-01-24 12:34 | Progress Note ---
Assessment and Plan Acute hypoxemic respiratory failure, on mechanical ventilatory support. Severe Sepsis Peritonitis Acute small-bowel obstruction with tissue necrosis. End-stage renal disease, on dialysis. Hypertension. Crohn's disease. Gastroesophageal reflux disease. Heart failure with reduced ejection fraction. Hyperkalemia. Anemia that is normocytic. Lactic acidosis. Oropharyngeal dysphagia - no new issues today, continue care as below; - continue octreotide - continue Robinul 0.2mg IV q6h - follow clinically for S&S of infection re: fevers / WBC - continue total parenteral nutrition - prn vasopressors for target MAP > 65 mmHg - continue wound care per RN/WCN - continue to wean supplemental oxygen for target O2 sat's > 92% acutely - aspiration precautions - continue bronchodilators with pulmonary hygiene per RT - wean per pulmonary driven protocols otherwise - HD/UF per nephrology prescription for toxin and volume control - avoid nephrotoxins, renally dose all medications - continue accuchecks with glycemic control per SSI (While critically ill target blood glucose of 140-180 mg/dL; avoid hypoglycemia) - sedation prn for target RASS 0 to -1 - continue to avoid benzodiazepine's, reduce the possibility of delirium - complete AB's per ID rec's - prn analgesia per CPOT score - Maintenance of sleep-wake cycle, avoid delirium - enteral nutritional support at goal rate as tolerated (once cleared by surgeon) - G.I. & VTE prophylaxis - PT/OT/ROM exercises - continue mobility protocols for pressure ulcer prophylaxis - Monitor hemodynamics closely - continue other care per attending / other consultants - discharge planning ongoing concurrently .... Re-evaluate in am & prn CONDITION: FAIR PROGNOSIS: GUARDED CODE STATUS: FULL CODE Subjective Date of service: 01/24/21 Principal diagnosis: Ac hypoxemic resp failure; Severe Sepsis; Peritonitis; Acute SBO; ESRD; CHF Interval history: Patient is seen today for: Ac hypoxemic resp failure; Severe Sepsis; Peritonitis; Acute SBO; ESRD on Dialysis; HTN; Crohn's disease; HFrEF Seen and examined at bedside; 24hour events reviewed; nursing and respiratory care staff consulted; no adverse overnight events reported to me; resting in bed; remains on supplemental oxygen; Objective Vital Signs - 12hr 01/24/21 01/24/21 01/24/21 02:00 02:07 02:20 Temperature Pulse Rate 71 74 Pulse Rate [ From Monitor] Respiratory 17 20 Rate Respiratory Rate [Anterior Abdomen] Blood Pressure 107/65 107/65 O2 Sat by Pulse 92 Oximetry 01/24/21 01/24/21 01/24/21 02:21 02:50 03:35 Temperature 99.0 F Pulse Rate 68 Pulse Rate [ From Monitor] Respiratory 16 Rate Respiratory Rate [Anterior Abdomen] Blood Pressure 124/67 O2 Sat by Pulse Oximetry 01/24/21 01/24/21 01/24/21 04:00 06:00 06:16 Temperature Pulse Rate 67 70 72 Pulse Rate [ 67 From Monitor] Respiratory 15 13 Rate Respiratory Rate [Anterior Abdomen] Blood Pressure 131/68 149/75 148/73 O2 Sat by Pulse 95 99 Oximetry 01/24/21 01/24/21 08:00 10:00 Temperature 98.9 F Pulse Rate 75 74 Pulse Rate [ 67 From Monitor] Respiratory 25 H 27 H Rate Respiratory 16 Rate [Anterior Abdomen] Blood Pressure 153/74 153/74 O2 Sat by Pulse 92 96 Oximetry Constitutional: no acute distress, other (elderly male with milldy increased respiratory effort) Eyes: non-icteric ENT: oropharynx moist, oropharyngeal exudate pre (improved), other (macroglossia improved) Neck: supple, no lymphadenopathy, no JVD Effort: normal Ascultation: Bilateral: clear, diminished breath sounds, rales, rhonchi Percussion: Bilateral: not dull Cardiovascular: regular rate and rhythm Gastrointestinal: hypoactive bowel sounds, soft, non-tender, non-distended (protuberant), other (Midline abdominal incision ) Integumentary: other (Midline abdominal incision ) Extremities: no cyanosis, no edema, pulses normal, no ischemia or petechiae Neurologic: non-focal exam, pupils equal and round, CN II-XII normal, motor strength normal and Psychiatric: mood appropriate, affect normal CBC and BMP: 01/20/21 03:35 01/24/21 04:45 ABG, PT/INR, D-dimer: ABG ABG pH 7.345 pH Units (7.350-7.450) L 01/07/21 17:14 POC ABG pCO2 41.4 mmHg (32.0-48.0) 01/07/21 03:07 ABG pCO2 40.3 mm Hg 01/07/21 17:14 POC ABG pO2 94.5 mmHg (83-108) 01/07/21 03:07 ABG pO2 67.4 mm Hg (80.0-90.0) L 01/07/21 17:14 POC ABG HCO3 22.7 01/07/21 03:07 ABG O2 Saturation 94.3 % (95.0-99.0) L 01/07/21 17:14 PT/INR, D-dimer PT 16.9 Sec. (12.2-14.9) H 01/01/21 12:45 INR 1.39 (0.87-1.13) H 01/01/21 12:45 Abnormal lab findings: Abnormal Labs 12/22/20 12/22/20 12/22/20 14:38 14:38 14:38 WBC RBC Hgb 11.2 L Hct 35.0 L MCV MCHC RDW 16.7 H Plt Count Lymph % (Auto) [place] % (Auto) Lymph # (Auto) [place] # (Auto) Seg Neutrophils % Seg Neuts % (Manual) 94.0 H Lymphocytes % (Manual) 5.0 L Monocytes % (Manual) Seg Neutrophils # Seg Neutrophils # Man Lymphocytes # (Manual) 0.3 L Monocytes # (Manual) PT INR ABG pH POC ABG pCO2 POC ABG pO2 ABG pO2 ABG HCO3 ABG O2 Saturation ABG Base Excess ABG Hemoglobin ABG Oxyhemoglobin ABG Sodium ABG Potassium ABG Chloride ABG Glucose Oxyhemoglobin Sodium Potassium Chloride Carbon Dioxide BUN 58 H Creatinine 13.2 H Glucose 113 H POC Glucose Lactic Acid 3.60 H* Calcium Phosphorus Magnesium Total Bilirubin 1.30 H AST ALT Alkaline Phosphatase 155 H Total Protein Albumin Triglycerides Arterial Blood Glucose Arterial Blood Ionized Calcium Digoxin Crossmatch 12/22/20 12/22/20 12/23/20 16:26 17:47 05:22 WBC RBC Hgb Hct MCV MCHC RDW Plt Count Lymph % (Auto) [place] % (Auto) Lymph # (Auto) [place] # (Auto) Seg Neutrophils % Seg Neuts % (Manual) Lymphocytes % (Manual) Monocytes % (Manual) Seg Neutrophils # Seg Neutrophils # Man Lymphocytes # (Manual) Monocytes # (Manual) PT INR ABG pH POC ABG pCO2 POC ABG pO2 ABG pO2 ABG HCO3 ABG O2 Saturation ABG Base Excess ABG Hemoglobin ABG Oxyhemoglobin ABG Sodium ABG Potassium ABG Chloride ABG Glucose Oxyhemoglobin Sodium Potassium Chloride Carbon Dioxide BUN Creatinine Glucose POC Glucose Lactic Acid 2.80 H* 3.10 H* 2.30 H* Calcium Phosphorus Magnesium Total Bilirubin AST ALT Alkaline Phosphatase Total Protein Albumin Triglycerides Arterial Blood Glucose Arterial Blood Ionized Calcium Digoxin Crossmatch 12/23/20 12/23/20 12/23/20 05:22 05:22 06:35 WBC 12.1 H RBC Hgb 11.0 L Hct 33.7 L MCV MCHC RDW 16.9 H Plt Count Lymph % (Auto) [place] % (Auto) Lymph # (Auto) [place] # (Auto) Seg Neutrophils % Seg Neuts % (Manual) 93.0 H Lymphocytes % (Manual) 1.0 L Monocytes % (Manual) Seg Neutrophils # Seg Neutrophils # Man 11.3 H Lymphocytes # (Manual) 0.1 L Monocytes # (Manual) PT INR ABG pH POC ABG pCO2 POC ABG pO2 ABG pO2 ABG HCO3 ABG O2 Saturation ABG Base Excess ABG Hemoglobin ABG Oxyhemoglobin ABG Sodium ABG Potassium ABG Chloride ABG Glucose Oxyhemoglobin Sodium Potassium 5.7 H D Chloride Carbon Dioxide BUN 73 H Creatinine 14.2 H Glucose POC Glucose Lactic Acid 2.30 H* Calcium 7.9 L Phosphorus Magnesium Total Bilirubin 1.40 H AST 119 H ALT 130 H Alkaline Phosphatase 183 H Total Protein 6.1 L Albumin 3.6 L Triglycerides Arterial Blood Glucose Arterial Blood Ionized Calcium Digoxin Crossmatch 12/23/20 12/23/20 12/23/20 11:40 13:53 16:47 WBC RBC Hgb 10.0 L Hct 30.4 L MCV MCHC RDW Plt Count Lymph % (Auto) [place] % (Auto) Lymph # (Auto) [place] # (Auto) Seg Neutrophils % Seg Neuts % (Manual) Lymphocytes % (Manual) Monocytes % (Manual) Seg Neutrophils # Seg Neutrophils # Man Lymphocytes # (Manual) Monocytes # (Manual) PT INR ABG pH POC ABG pCO2 POC ABG pO2 137.5 H ABG pO2 ABG HCO3 ABG O2 Saturation ABG Base Excess ABG Hemoglobin 9.7 L ABG Oxyhemoglobin ABG Sodium 134.1 L ABG Potassium 6.6 H ABG Chloride ABG Glucose 103 H Oxyhemoglobin Sodium Potassium Chloride Carbon Dioxide BUN Creatinine Glucose POC Glucose Lactic Acid Calcium Phosphorus Magnesium Total Bilirubin AST ALT Alkaline Phosphatase Total Protein Albumin Triglycerides Arterial Blood Glucose 103 H Arterial Blood Ionized Calcium 3.8 L Digoxin Crossmatch See Detail 12/23/20 12/23/20 12/24/20 20:35 20:40 01:20 WBC RBC Hgb Hct MCV MCHC RDW Plt Count Lymph % (Auto) [place] % (Auto) Lymph # (Auto) [place] # (Auto) Seg Neutrophils % Seg Neuts % (Manual) Lymphocytes % (Manual) Monocytes % (Manual) Seg Neutrophils # Seg Neutrophils # Man Lymphocytes # (Manual) Monocytes # (Manual) PT INR ABG pH 7.252 L POC ABG pCO2 POC ABG pO2 ABG pO2 50.1 L ABG HCO3 ABG O2 Saturation 81.1 L ABG Base Excess -5.9 L ABG Hemoglobin 12.1 L ABG Oxyhemoglobin ABG Sodium ABG Potassium ABG Chloride ABG Glucose Oxyhemoglobin 78.6 L Sodium 134 L Potassium 6.9 H* D 6.3 H* Chloride Carbon Dioxide 18 L 20 L BUN 87 H 91 H Creatinine 15.3 H 15.3 H Glucose 103 H POC Glucose Lactic Acid Calcium 6.9 L 7.5 L Phosphorus Magnesium Total Bilirubin AST ALT Alkaline Phosphatase Total Protein Albumin Triglycerides Arterial Blood Glucose Arterial Blood Ionized Calcium Digoxin Crossmatch 12/24/20 12/24/20 12/24/20 04:00 10:29 10:29 WBC RBC 3.49 L Hgb 10.5 L Hct 31.2 L MCV MCHC RDW 17.5 H Plt Count 124 L Lymph % (Auto) 3.7 L [place] % (Auto) 9.8 H Lymph # (Auto) 0.2 L [place] # (Auto) Seg Neutrophils % 85.9 H Seg Neuts % (Manual) Lymphocytes % (Manual) Monocytes % (Manual) Seg Neutrophils # Seg Neutrophils # Man Lymphocytes # (Manual) Monocytes # (Manual) PT INR ABG pH POC ABG pCO2 28.1 L POC ABG pO2 ABG pO2 ABG HCO3 ABG O2 Saturation ABG Base Excess ABG Hemoglobin ABG Oxyhemoglobin ABG Sodium 133.9 L ABG Potassium 5.3 H ABG Chloride 108.0 H ABG Glucose Oxyhemoglobin Sodium Potassium 5.6 H Chloride Carbon Dioxide 19 L BUN 99 H Creatinine 16.9 H Glucose 52 L POC Glucose Lactic Acid Calcium 7.6 L Phosphorus Magnesium Total Bilirubin 3.50 H AST 67 H ALT 71 H Alkaline Phosphatase Total Protein 3.5 L D Albumin 2.1 L Triglycerides Arterial Blood Glucose Arterial Blood Ionized Calcium 4.0 L Digoxin Crossmatch 12/25/20 12/25/20 12/25/20 03:33 04:00 04:00 WBC 3.8 L RBC 2.90 L Hgb 8.6 L Hct 25.7 L MCV MCHC RDW 16.7 H Plt Count 113 L Lymph % (Auto) [place] % (Auto) Lymph # (Auto) [place] # (Auto) Seg Neutrophils % Seg Neuts % (Manual) Lymphocytes % (Manual) Monocytes % (Manual) Seg Neutrophils # Seg Neutrophils # Man Lymphocytes # (Manual) Monocytes # (Manual) PT INR ABG pH 7.544 H POC ABG pCO2 28.2 L POC ABG pO2 62.8 L ABG pO2 ABG HCO3 ABG O2 Saturation ABG Base Excess ABG Hemoglobin 9.3 L ABG Oxyhemoglobin 93.0 L ABG Sodium 130.3 L ABG Potassium ABG Chloride ABG Glucose 97 H Oxyhemoglobin Sodium Potassium Chloride Carbon Dioxide BUN 62 H Creatinine 11.4 H Glucose POC Glucose Lactic Acid Calcium 7.7 L Phosphorus 5.00 H Magnesium Total Bilirubin AST ALT Alkaline Phosphatase Total Protein Albumin Triglycerides Arterial Blood Glucose 97 H Arterial Blood Ionized Calcium 3.9 L Digoxin Crossmatch 12/26/20 12/26/20 12/27/20 04:46 Unknown 03:40 WBC 4.1 L RBC 2.61 L Hgb 7.8 L Hct 23.4 L MCV MCHC RDW 17.1 H Plt Count 119 L Lymph % (Auto) 5.3 L [place] % (Auto) 10.6 H Lymph # (Auto) 0.2 L [place] # (Auto) Seg Neutrophils % 78.8 H Seg Neuts % (Manual) Lymphocytes % (Manual) Monocytes % (Manual) Seg Neutrophils # Seg Neutrophils # Man Lymphocytes # (Manual) Monocytes # (Manual) PT INR ABG pH 7.333 L 7.332 L POC ABG pCO2 POC ABG pO2 ABG pO2 ABG HCO3 26.9 H ABG O2 Saturation ABG Base Excess -2.4 L ABG Hemoglobin 6.8 L 7.2 L ABG Oxyhemoglobin ABG Sodium ABG Potassium ABG Chloride ABG Glucose Oxyhemoglobin 93.0 L 93.1 L Sodium Potassium Chloride Carbon Dioxide BUN Creatinine Glucose POC Glucose Lactic Acid Calcium Phosphorus Magnesium Total Bilirubin AST ALT Alkaline Phosphatase Total Protein Albumin Triglycerides Arterial Blood Glucose Arterial Blood Ionized Calcium Digoxin Crossmatch 12/27/20 12/27/20 12/27/20 06:40 06:40 11:22 WBC 4.4 L RBC 2.49 L Hgb 7.4 L Hct 22.4 L MCV MCHC RDW 17.1 H Plt Count 111 L Lymph % (Auto) 6.7 L [place] % (Auto) 12.6 H Lymph # (Auto) 0.3 L [place] # (Auto) Seg Neutrophils % 77.6 H Seg Neuts % (Manual) Lymphocytes % (Manual) Monocytes % (Manual) Seg Neutrophils # Seg Neutrophils # Man Lymphocytes # (Manual) Monocytes # (Manual) PT INR ABG pH POC ABG pCO2 POC ABG pO2 ABG pO2 ABG HCO3 ABG O2 Saturation ABG Base Excess ABG Hemoglobin ABG Oxyhemoglobin ABG Sodium ABG Potassium ABG Chloride ABG Glucose Oxyhemoglobin Sodium Potassium Chloride Carbon Dioxide BUN 64 H Creatinine 9.8 H Glucose 147 H POC Glucose 134 H Lactic Acid Calcium 8.3 L Phosphorus 5.00 H Magnesium Total Bilirubin 3.70 H AST 72 H ALT Alkaline Phosphatase 142 H Total Protein 5.1 L D Albumin 2.9 L Triglycerides Arterial Blood Glucose Arterial Blood Ionized Calcium Digoxin Crossmatch 12/27/20 12/27/20 12/28/20 17:29 23:31 03:09 WBC RBC Hgb Hct MCV MCHC RDW Plt Count Lymph % (Auto) [place] % (Auto) Lymph # (Auto) [place] # (Auto) Seg Neutrophils % Seg Neuts % (Manual) Lymphocytes % (Manual) Monocytes % (Manual) Seg Neutrophils # Seg Neutrophils # Man Lymphocytes # (Manual) Monocytes # (Manual) PT INR ABG pH 7.474 H POC ABG pCO2 POC ABG pO2 ABG pO2 ABG HCO3 ABG O2 Saturation ABG Base Excess ABG Hemoglobin 7.8 L ABG Oxyhemoglobin ABG Sodium ABG Potassium ABG Chloride ABG Glucose Oxyhemoglobin Sodium Potassium Chloride Carbon Dioxide BUN Creatinine Glucose POC Glucose 121 H 131 H Lactic Acid Calcium Phosphorus Magnesium Total Bilirubin AST ALT Alkaline Phosphatase Total Protein Albumin Triglycerides Arterial Blood Glucose Arterial Blood Ionized Calcium Digoxin Crossmatch 12/28/20 12/28/20 12/28/20 05:37 05:40 05:40 WBC 4.3 L RBC 2.40 L Hgb 7.2 L Hct 21.5 L MCV MCHC RDW 17.4 H Plt Count 112 L Lymph % (Auto) 6.5 L [place] % (Auto) 16.7 H Lymph # (Auto) 0.3 L [place] # (Auto) Seg Neutrophils % 71.1 H Seg Neuts % (Manual) Lymphocytes % (Manual) Monocytes % (Manual) Seg Neutrophils # Seg Neutrophils # Man Lymphocytes # (Manual) Monocytes # (Manual) PT INR ABG pH POC ABG pCO2 POC ABG pO2 ABG pO2 ABG HCO3 ABG O2 Saturation ABG Base Excess ABG Hemoglobin ABG Oxyhemoglobin ABG Sodium ABG Potassium ABG Chloride ABG Glucose Oxyhemoglobin Sodium Potassium Chloride Carbon Dioxide BUN 85 H Creatinine 11.5 H Glucose 132 H POC Glucose 121 H Lactic Acid Calcium 8.2 L Phosphorus Magnesium 2.40 H Total Bilirubin 3.80 H AST 70 H ALT Alkaline Phosphatase 176 H Total Protein 5.0 L Albumin 2.9 L Triglycerides Arterial Blood Glucose Arterial Blood Ionized Calcium Digoxin Crossmatch 12/28/20 12/28/20 12/28/20 11:34 15:00 17:35 WBC RBC Hgb Hct MCV MCHC RDW Plt Count Lymph % (Auto) [place] % (Auto) Lymph # (Auto) [place] # (Auto) Seg Neutrophils % Seg Neuts % (Manual) Lymphocytes % (Manual) Monocytes % (Manual) Seg Neutrophils # Seg Neutrophils # Man Lymphocytes # (Manual) Monocytes # (Manual) PT INR ABG pH 7.461 H POC ABG pCO2 POC ABG pO2 72.2 L ABG pO2 ABG HCO3 ABG O2 Saturation ABG Base Excess ABG Hemoglobin 8.2 L ABG Oxyhemoglobin 93.6 L ABG Sodium 134.1 L ABG Potassium 3.2 L ABG Chloride ABG Glucose 135 H Oxyhemoglobin Sodium Potassium Chloride Carbon Dioxide BUN Creatinine Glucose POC Glucose 137 H 144 H Lactic Acid Calcium Phosphorus Magnesium Total Bilirubin AST ALT Alkaline Phosphatase Total Protein Albumin Triglycerides Arterial Blood Glucose 135 H Arterial Blood Ionized Calcium 4.4 L Digoxin Crossmatch 12/28/20 12/28/20 12/29/20 19:44 Unknown 00:21 WBC RBC Hgb Hct MCV MCHC RDW Plt Count Lymph % (Auto) [place] % (Auto) Lymph # (Auto) [place] # (Auto) Seg Neutrophils % Seg Neuts % (Manual) Lymphocytes % (Manual) Monocytes % (Manual) Seg Neutrophils # Seg Neutrophils # Man Lymphocytes # (Manual) Monocytes # (Manual) PT INR ABG pH 7.474 H POC ABG pCO2 POC ABG pO2 ABG pO2 ABG HCO3 ABG O2 Saturation ABG Base Excess ABG Hemoglobin 7.8 L ABG Oxyhemoglobin ABG Sodium 133.2 L ABG Potassium ABG Chloride ABG Glucose 139 H Oxyhemoglobin Sodium 135 L Potassium Chloride 96.6 L Carbon Dioxide BUN 47 H Creatinine 7.4 H Glucose 130 H POC Glucose 142 H Lactic Acid Calcium 8.3 L Phosphorus Magnesium Total Bilirubin AST ALT Alkaline Phosphatase Total Protein Albumin Triglycerides Arterial Blood Glucose 139 H Arterial Blood Ionized Calcium 4.3 L Digoxin Crossmatch 12/29/20 12/29/20 12/29/20 05:16 05:16 05:26 WBC RBC 2.53 L Hgb 7.7 L Hct 22.8 L MCV MCHC RDW 17.0 H Plt Count 130 L Lymph % (Auto) [place] % (Auto) Lymph # (Auto) [place] # (Auto) Seg Neutrophils % Seg Neuts % (Manual) 79.0 H Lymphocytes % (Manual) 9.0 L Monocytes % (Manual) Seg Neutrophils # Seg Neutrophils # Man Lymphocytes # (Manual) 0.6 L Monocytes # (Manual) PT INR ABG pH POC ABG pCO2 POC ABG pO2 ABG pO2 ABG HCO3 ABG O2 Saturation ABG Base Excess ABG Hemoglobin ABG Oxyhemoglobin ABG Sodium ABG Potassium ABG Chloride ABG Glucose Oxyhemoglobin Sodium Potassium 3.4 L Chloride 96.6 L Carbon Dioxide BUN 59 H Creatinine 8.3 H Glucose 127 H POC Glucose 141 H Lactic Acid Calcium 8.2 L Phosphorus Magnesium Total Bilirubin 3.00 H AST 88 H ALT Alkaline Phosphatase 188 H Total Protein 5.1 L Albumin 2.8 L Triglycerides Arterial Blood Glucose Arterial Blood Ionized Calcium Digoxin Crossmatch 12/29/20 12/29/20 12/29/20 11:33 17:29 23:22 WBC RBC Hgb Hct MCV MCHC RDW Plt Count Lymph % (Auto) [place] % (Auto) Lymph # (Auto) [place] # (Auto) Seg Neutrophils % Seg Neuts % (Manual) Lymphocytes % (Manual) Monocytes % (Manual) Seg Neutrophils # Seg Neutrophils # Man Lymphocytes # (Manual) Monocytes # (Manual) PT INR ABG pH POC ABG pCO2 POC ABG pO2 ABG pO2 ABG HCO3 ABG O2 Saturation ABG Base Excess ABG Hemoglobin ABG Oxyhemoglobin ABG Sodium ABG Potassium ABG Chloride ABG Glucose Oxyhemoglobin Sodium Potassium Chloride Carbon Dioxide BUN Creatinine Glucose POC Glucose 144 H 130 H 117 H Lactic Acid Calcium Phosphorus Magnesium Total Bilirubin AST ALT Alkaline Phosphatase Total Protein Albumin Triglycerides Arterial Blood Glucose Arterial Blood Ionized Calcium Digoxin Crossmatch 12/30/20 12/30/20 12/30/20 05:23 08:15 09:00 WBC RBC Hgb Hct MCV MCHC RDW Plt Count Lymph % (Auto) [place] % (Auto) Lymph # (Auto) [place] # (Auto) Seg Neutrophils % Seg Neuts % (Manual) Lymphocytes % (Manual) Monocytes % (Manual) Seg Neutrophils # Seg Neutrophils # Man Lymphocytes # (Manual) Monocytes # (Manual) PT INR ABG pH POC ABG pCO2 POC ABG pO2 ABG pO2 ABG HCO3 ABG O2 Saturation ABG Base Excess ABG Hemoglobin ABG Oxyhemoglobin ABG Sodium ABG Potassium ABG Chloride ABG Glucose Oxyhemoglobin Sodium 135 L Potassium Chloride 95.9 L Carbon Dioxide BUN 85 H Creatinine 10.6 H Glucose 128 H POC Glucose 135 H 127 H Lactic Acid Calcium 8.3 L Phosphorus Magnesium Total Bilirubin 2.40 H AST 85 H ALT Alkaline Phosphatase 216 H Total Protein 5.3 L Albumin 2.6 L Triglycerides 155 H Arterial Blood Glucose Arterial Blood Ionized Calcium Digoxin Crossmatch 12/30/20 12/30/20 12/30/20 09:00 11:53 15:49 WBC RBC 2.61 L Hgb 7.8 L Hct 23.7 L MCV MCHC RDW 17.3 H Plt Count Lymph % (Auto) [place] % (Auto) Lymph # (Auto) [place] # (Auto) Seg Neutrophils % Seg Neuts % (Manual) Lymphocytes % (Manual) Monocytes % (Manual) Seg Neutrophils # Seg Neutrophils # Man Lymphocytes # (Manual) Monocytes # (Manual) PT INR ABG pH POC ABG pCO2 POC ABG pO2 ABG pO2 ABG HCO3 ABG O2 Saturation ABG Base Excess ABG Hemoglobin ABG Oxyhemoglobin ABG Sodium ABG Potassium ABG Chloride ABG Glucose Oxyhemoglobin Sodium Potassium Chloride Carbon Dioxide BUN Creatinine Glucose POC Glucose 155 H 146 H Lactic Acid Calcium Phosphorus Magnesium Total Bilirubin AST ALT Alkaline Phosphatase Total Protein Albumin Triglycerides Arterial Blood Glucose Arterial Blood Ionized Calcium Digoxin Crossmatch 12/30/20 12/30/20 12/31/20 17:53 23:45 03:56 WBC RBC Hgb Hct MCV MCHC RDW Plt Count Lymph % (Auto) [place] % (Auto) Lymph # (Auto) [place] # (Auto) Seg Neutrophils % Seg Neuts % (Manual) Lymphocytes % (Manual) Monocytes % (Manual) Seg Neutrophils # Seg Neutrophils # Man Lymphocytes # (Manual) Monocytes # (Manual) PT INR ABG pH POC ABG pCO2 POC ABG pO2 49.4 L ABG pO2 ABG HCO3 ABG O2 Saturation ABG Base Excess ABG Hemoglobin 10.3 L ABG Oxyhemoglobin 84.2 L ABG Sodium 133.1 L ABG Potassium ABG Chloride ABG Glucose 173 H Oxyhemoglobin Sodium Potassium Chloride Carbon Dioxide BUN Creatinine Glucose POC Glucose 139 H 173 H Lactic Acid Calcium Phosphorus Magnesium Total Bilirubin AST ALT Alkaline Phosphatase Total Protein Albumin Triglycerides Arterial Blood Glucose 173 H Arterial Blood Ionized Calcium Digoxin Crossmatch 12/31/20 12/31/20 12/31/20 05:07 06:51 06:51 WBC 20.3 H RBC 3.32 L Hgb 9.8 L Hct 30.3 L D MCV MCHC RDW 17.3 H Plt Count Lymph % (Auto) [place] % (Auto) Lymph # (Auto) [place] # (Auto) Seg Neutrophils % Seg Neuts % (Manual) 87.0 H Lymphocytes % (Manual) 10.0 L Monocytes % (Manual) Seg Neutrophils # Seg Neutrophils # Man 17.7 H Lymphocytes # (Manual) Monocytes # (Manual) PT INR ABG pH POC ABG pCO2 POC ABG pO2 ABG pO2 ABG HCO3 ABG O2 Saturation ABG Base Excess ABG Hemoglobin ABG Oxyhemoglobin ABG Sodium ABG Potassium ABG Chloride ABG Glucose Oxyhemoglobin Sodium Potassium 5.2 H D Chloride Carbon Dioxide BUN 62 H Creatinine 8.4 H Glucose 116 H POC Glucose 120 H Lactic Acid Calcium Phosphorus Magnesium 1.60 L Total Bilirubin AST ALT Alkaline Phosphatase Total Protein Albumin Triglycerides Arterial Blood Glucose Arterial Blood Ionized Calcium Digoxin Crossmatch 12/31/20 12/31/20 12/31/20 09:38 12:19 12:22 WBC RBC Hgb Hct MCV MCHC RDW Plt Count Lymph % (Auto) [place] % (Auto) Lymph # (Auto) [place] # (Auto) Seg Neutrophils % Seg Neuts % (Manual) Lymphocytes % (Manual) Monocytes % (Manual) Seg Neutrophils # Seg Neutrophils # Man Lymphocytes # (Manual) Monocytes # (Manual) PT INR ABG pH POC ABG pCO2 POC ABG pO2 ABG pO2 354.0 H ABG HCO3 ABG O2 Saturation 99.6 H ABG Base Excess ABG Hemoglobin 9.1 L ABG Oxyhemoglobin ABG Sodium ABG Potassium ABG Chloride ABG Glucose Oxyhemoglobin Sodium Potassium 5.2 H Chloride Carbon Dioxide BUN Creatinine Glucose POC Glucose 132 H Lactic Acid Calcium Phosphorus Magnesium Total Bilirubin AST ALT Alkaline Phosphatase Total Protein Albumin Triglycerides Arterial Blood Glucose Arterial Blood Ionized Calcium Digoxin Crossmatch 12/31/20 01/01/21 01/01/21 23:23 03:03 05:04 WBC RBC Hgb Hct MCV MCHC RDW Plt Count Lymph % (Auto) [place] % (Auto) Lymph # (Auto) [place] # (Auto) Seg Neutrophils % Seg Neuts % (Manual) Lymphocytes % (Manual) Monocytes % (Manual) Seg Neutrophils # Seg Neutrophils # Man Lymphocytes # (Manual) Monocytes # (Manual) PT INR ABG pH POC ABG pCO2 POC ABG pO2 79.6 L ABG pO2 ABG HCO3 ABG O2 Saturation ABG Base Excess ABG Hemoglobin 9.2 L ABG Oxyhemoglobin ABG Sodium 131.6 L ABG Potassium 5.8 H ABG Chloride ABG Glucose 177 H Oxyhemoglobin Sodium Potassium Chloride Carbon Dioxide BUN Creatinine Glucose POC Glucose 174 H 167 H Lactic Acid Calcium Phosphorus Magnesium Total Bilirubin AST ALT Alkaline Phosphatase Total Protein Albumin Triglycerides Arterial Blood Glucose 177 H Arterial Blood Ionized Calcium Digoxin Crossmatch 01/01/21 01/01/21 01/01/21 07:31 07:31 11:31 WBC 26.1 H RBC 2.95 L Hgb 8.6 L Hct 27.1 L MCV MCHC RDW 18.2 H Plt Count Lymph % (Auto) [place] % (Auto) Lymph # (Auto) [place] # (Auto) Seg Neutrophils % Seg Neuts % (Manual) 96.0 H Lymphocytes % (Manual) 4.0 L Monocytes % (Manual) Seg Neutrophils # Seg Neutrophils # Man 25.1 H Lymphocytes # (Manual) 1.0 L Monocytes # (Manual) PT INR ABG pH POC ABG pCO2 POC ABG pO2 ABG pO2 ABG HCO3 ABG O2 Saturation ABG Base Excess ABG Hemoglobin ABG Oxyhemoglobin ABG Sodium ABG Potassium ABG Chloride ABG Glucose Oxyhemoglobin Sodium Potassium 6.0 H Chloride Carbon Dioxide 21 L BUN 89 H Creatinine 10.5 H Glucose 179 H POC Glucose Lactic Acid Calcium Phosphorus Magnesium Total Bilirubin AST ALT Alkaline Phosphatase Total Protein Albumin Triglycerides Arterial Blood Glucose Arterial Blood Ionized Calcium Digoxin Crossmatch See Detail 01/01/21 01/01/21 01/01/21 11:51 12:45 16:52 WBC RBC Hgb Hct MCV MCHC RDW Plt Count Lymph % (Auto) [place] % (Auto) Lymph # (Auto) [place] # (Auto) Seg Neutrophils % Seg Neuts % (Manual) Lymphocytes % (Manual) Monocytes % (Manual) Seg Neutrophils # Seg Neutrophils # Man Lymphocytes # (Manual) Monocytes # (Manual) PT 16.9 H INR 1.39 H ABG pH POC ABG pCO2 POC ABG pO2 ABG pO2 ABG HCO3 ABG O2 Saturation ABG Base Excess ABG Hemoglobin ABG Oxyhemoglobin ABG Sodium ABG Potassium ABG Chloride ABG Glucose Oxyhemoglobin Sodium Potassium Chloride Carbon Dioxide BUN Creatinine Glucose POC Glucose 157 H 177 H Lactic Acid Calcium Phosphorus Magnesium Total Bilirubin AST ALT Alkaline Phosphatase Total Protein Albumin Triglycerides Arterial Blood Glucose Arterial Blood Ionized Calcium Digoxin Crossmatch 01/01/21 01/01/21 01/01/21 17:58 17:58 20:12 WBC 26.9 H RBC 3.14 L Hgb 9.3 L Hct 29.6 L MCV MCHC RDW 17.5 H Plt Count Lymph % (Auto) [place] % (Auto) Lymph # (Auto) [place] # (Auto) Seg Neutrophils % Seg Neuts % (Manual) 84.0 H Lymphocytes % (Manual) 4.0 L Monocytes % (Manual) 12.0 H Seg Neutrophils # Seg Neutrophils # Man 22.6 H Lymphocytes # (Manual) 1.1 L Monocytes # (Manual) 3.2 H PT INR ABG pH POC ABG pCO2 POC ABG pO2 ABG pO2 ABG HCO3 ABG O2 Saturation ABG Base Excess ABG Hemoglobin ABG Oxyhemoglobin ABG Sodium ABG Potassium ABG Chloride ABG Glucose Oxyhemoglobin Sodium 136 L Potassium 6.2 H* Chloride Carbon Dioxide 21 L BUN 92 H Creatinine 10.8 H Glucose 171 H POC Glucose 288 H Lactic Acid Calcium Phosphorus Magnesium Total Bilirubin 2.10 H AST 223 H ALT 100 H Alkaline Phosphatase 206 H Total Protein 4.8 L Albumin 1.9 L Triglycerides Arterial Blood Glucose Arterial Blood Ionized Calcium Digoxin Crossmatch 01/02/21 01/02/21 01/02/21 00:12 00:45 03:05 WBC RBC Hgb Hct MCV MCHC RDW Plt Count Lymph % (Auto) [place] % (Auto) Lymph # (Auto) [place] # (Auto) Seg Neutrophils % Seg Neuts % (Manual) Lymphocytes % (Manual) Monocytes % (Manual) Seg Neutrophils # Seg Neutrophils # Man Lymphocytes # (Manual) Monocytes # (Manual) PT INR ABG pH POC ABG pCO2 POC ABG pO2 81.8 L ABG pO2 ABG HCO3 ABG O2 Saturation ABG Base Excess ABG Hemoglobin 8.0 L ABG Oxyhemoglobin ABG Sodium 129.8 L ABG Potassium 5.4 H ABG Chloride ABG Glucose 257 H Oxyhemoglobin Sodium 136 L Potassium 5.8 H Chloride 96.6 L Carbon Dioxide BUN 95 H Creatinine 11.2 H Glucose 238 H POC Glucose 223 H Lactic Acid Calcium Phosphorus Magnesium Total Bilirubin AST ALT Alkaline Phosphatase Total Protein Albumin Triglycerides Arterial Blood Glucose 257 H Arterial Blood Ionized Calcium 4.0 L Digoxin Crossmatch 01/02/21 01/02/21 01/02/21 06:25 08:00 08:00 WBC 17.5 H RBC 2.31 L Hgb 6.7 L Hct 22.1 L D MCV 96 H MCHC 30 L RDW 18.4 H Plt Count Lymph % (Auto) [place] % (Auto) Lymph # (Auto) [place] # (Auto) Seg Neutrophils % Seg Neuts % (Manual) Lymphocytes % (Manual) Monocytes % (Manual) Seg Neutrophils # Seg Neutrophils # Man Lymphocytes # (Manual) Monocytes # (Manual) PT INR ABG pH POC ABG pCO2 POC ABG pO2 ABG pO2 ABG HCO3 ABG O2 Saturation ABG Base Excess ABG Hemoglobin ABG Oxyhemoglobin ABG Sodium ABG Potassium ABG Chloride ABG Glucose Oxyhemoglobin Sodium 134 L Potassium 5.3 H Chloride 92.9 L Carbon Dioxide BUN 101 H Creatinine 10.9 H Glucose 560 H* POC Glucose 239 H Lactic Acid Calcium 7.6 L Phosphorus 6.50 H Magnesium Total Bilirubin AST ALT Alkaline Phosphatase Total Protein Albumin Triglycerides Arterial Blood Glucose Arterial Blood Ionized Calcium Digoxin Crossmatch 01/02/21 01/02/21 01/02/21 11:26 15:00 17:57 WBC RBC Hgb Hct MCV MCHC RDW Plt Count Lymph % (Auto) [place] % (Auto) Lymph # (Auto) [place] # (Auto) Seg Neutrophils % Seg Neuts % (Manual) Lymphocytes % (Manual) Monocytes % (Manual) Seg Neutrophils # Seg Neutrophils # Man Lymphocytes # (Manual) Monocytes # (Manual) PT INR ABG pH POC ABG pCO2 POC ABG pO2 ABG pO2 ABG HCO3 ABG O2 Saturation ABG Base Excess ABG Hemoglobin ABG Oxyhemoglobin ABG Sodium ABG Potassium ABG Chloride ABG Glucose Oxyhemoglobin Sodium Potassium Chloride Carbon Dioxide BUN Creatinine Glucose 241 H POC Glucose 205 H 272 H Lactic Acid Calcium Phosphorus Magnesium Total Bilirubin AST ALT Alkaline Phosphatase Total Protein Albumin Triglycerides Arterial Blood Glucose Arterial Blood Ionized Calcium Digoxin Crossmatch 01/02/21 01/02/21 01/03/21 23:25 23:43 03:45 WBC RBC Hgb Hct MCV MCHC RDW Plt Count Lymph % (Auto) [place] % (Auto) Lymph # (Auto) [place] # (Auto) Seg Neutrophils % Seg Neuts % (Manual) Lymphocytes % (Manual) Monocytes % (Manual) Seg Neutrophils # Seg Neutrophils # Man Lymphocytes # (Manual) Monocytes # (Manual) PT INR ABG pH POC ABG pCO2 48.3 H POC ABG pO2 134.4 H 79.7 L ABG pO2 ABG HCO3 ABG O2 Saturation ABG Base Excess ABG Hemoglobin 7.7 L 8.6 L ABG Oxyhemoglobin ABG Sodium 131.8 L 130.4 L ABG Potassium ABG Chloride 97.0 L ABG Glucose 218 H 238 H Oxyhemoglobin Sodium Potassium Chloride Carbon Dioxide BUN Creatinine Glucose POC Glucose 218 H Lactic Acid Calcium Phosphorus Magnesium Total Bilirubin AST ALT Alkaline Phosphatase Total Protein Albumin Triglycerides Arterial Blood Glucose 218 H 238 H Arterial Blood Ionized Calcium 4.1 L 4.0 L Digoxin Crossmatch 01/03/21 01/03/21 01/03/21 04:37 04:37 05:39 WBC 15.2 H RBC 2.38 L Hgb 7.3 L Hct 21.6 L MCV MCHC RDW 16.6 H Plt Count Lymph % (Auto) [place] % (Auto) Lymph # (Auto) [place] # (Auto) Seg Neutrophils % Seg Neuts % (Manual) Lymphocytes % (Manual) Monocytes % (Manual) Seg Neutrophils # Seg Neutrophils # Man Lymphocytes # (Manual) Monocytes # (Manual) PT INR ABG pH POC ABG pCO2 POC ABG pO2 ABG pO2 ABG HCO3 ABG O2 Saturation ABG Base Excess ABG Hemoglobin ABG Oxyhemoglobin ABG Sodium ABG Potassium ABG Chloride ABG Glucose Oxyhemoglobin Sodium 136 L Potassium Chloride 94.5 L Carbon Dioxide BUN 69 H Creatinine 8.0 H Glucose 219 H POC Glucose 222 H Lactic Acid Calcium 7.8 L Phosphorus 4.80 H D Magnesium Total Bilirubin AST ALT Alkaline Phosphatase Total Protein Albumin Triglycerides Arterial Blood Glucose Arterial Blood Ionized Calcium Digoxin Crossmatch 01/03/21 01/03/21 01/03/21 11:29 18:49 23:37 WBC RBC Hgb Hct MCV MCHC RDW Plt Count Lymph % (Auto) [place] % (Auto) Lymph # (Auto) [place] # (Auto) Seg Neutrophils % Seg Neuts % (Manual) Lymphocytes % (Manual) Monocytes % (Manual) Seg Neutrophils # Seg Neutrophils # Man Lymphocytes # (Manual) Monocytes # (Manual) PT INR ABG pH POC ABG pCO2 POC ABG pO2 ABG pO2 ABG HCO3 ABG O2 Saturation ABG Base Excess ABG Hemoglobin ABG Oxyhemoglobin ABG Sodium ABG Potassium ABG Chloride ABG Glucose Oxyhemoglobin Sodium Potassium Chloride Carbon Dioxide BUN Creatinine Glucose POC Glucose 232 H 129 H 140 H Lactic Acid Calcium Phosphorus Magnesium Total Bilirubin AST ALT Alkaline Phosphatase Total Protein Albumin Triglycerides Arterial Blood Glucose Arterial Blood Ionized Calcium Digoxin Crossmatch 01/04/21 01/04/21 01/04/21 03:22 04:38 04:38 WBC 11.1 H RBC 2.89 L Hgb 8.9 L Hct 26.2 L MCV MCHC RDW 16.1 H Plt Count Lymph % (Auto) [place] % (Auto) Lymph # (Auto) [place] # (Auto) Seg Neutrophils % Seg Neuts % (Manual) Lymphocytes % (Manual) Monocytes % (Manual) Seg Neutrophils # Seg Neutrophils # Man Lymphocytes # (Manual) Monocytes # (Manual) PT INR ABG pH POC ABG pCO2 POC ABG pO2 82.3 L ABG pO2 ABG HCO3 ABG O2 Saturation ABG Base Excess ABG Hemoglobin 8.9 L ABG Oxyhemoglobin ABG Sodium 130.5 L ABG Potassium ABG Chloride ABG Glucose 124 H Oxyhemoglobin Sodium Potassium Chloride 95.5 L Carbon Dioxide BUN 87 H Creatinine 9.7 H Glucose 118 H POC Glucose Lactic Acid Calcium 7.7 L Phosphorus Magnesium Total Bilirubin AST ALT Alkaline Phosphatase Total Protein Albumin Triglycerides Arterial Blood Glucose 124 H Arterial Blood Ionized Calcium 3.5 L Digoxin Crossmatch 01/04/21 01/04/21 01/04/21 05:39 12:04 18:04 WBC RBC Hgb Hct MCV MCHC RDW Plt Count Lymph % (Auto) [place] % (Auto) Lymph # (Auto) [place] # (Auto) Seg Neutrophils % Seg Neuts % (Manual) Lymphocytes % (Manual) Monocytes % (Manual) Seg Neutrophils # Seg Neutrophils # Man Lymphocytes # (Manual) Monocytes # (Manual) PT INR ABG pH POC ABG pCO2 POC ABG pO2 ABG pO2 ABG HCO3 ABG O2 Saturation ABG Base Excess ABG Hemoglobin ABG Oxyhemoglobin ABG Sodium ABG Potassium ABG Chloride ABG Glucose Oxyhemoglobin Sodium Potassium Chloride Carbon Dioxide BUN Creatinine Glucose POC Glucose 134 H 125 H 131 H Lactic Acid Calcium Phosphorus Magnesium Total Bilirubin AST ALT Alkaline Phosphatase Total Protein Albumin Triglycerides Arterial Blood Glucose Arterial Blood Ionized Calcium Digoxin Crossmatch 01/04/21 01/05/21 01/05/21 23:41 03:23 04:49 WBC RBC Hgb Hct MCV MCHC RDW Plt Count Lymph % (Auto) [place] % (Auto) Lymph # (Auto) [place] # (Auto) Seg Neutrophils % Seg Neuts % (Manual) Lymphocytes % (Manual) Monocytes % (Manual) Seg Neutrophils # Seg Neutrophils # Man Lymphocytes # (Manual) Monocytes # (Manual) PT INR ABG pH POC ABG pCO2 POC ABG pO2 62.8 L ABG pO2 ABG HCO3 ABG O2 Saturation ABG Base Excess ABG Hemoglobin 9.5 L ABG Oxyhemoglobin 92.0 L ABG Sodium 130.1 L ABG Potassium ABG Chloride ABG Glucose 148 H Oxyhemoglobin Sodium Potassium Chloride 96.9 L Carbon Dioxide BUN 57 H Creatinine 6.7 H Glucose 135 H POC Glucose 132 H Lactic Acid Calcium 8.0 L Phosphorus Magnesium Total Bilirubin AST ALT Alkaline Phosphatase Total Protein Albumin Triglycerides Arterial Blood Glucose 148 H Arterial Blood Ionized Calcium 4.1 L Digoxin Crossmatch 01/05/21 01/05/21 01/05/21 05:04 11:48 12:39 WBC RBC 3.03 L Hgb 9.3 L Hct 27.6 L MCV MCHC RDW 16.5 H Plt Count Lymph % (Auto) [place] % (Auto) Lymph # (Auto) [place] # (Auto) Seg Neutrophils % Seg Neuts % (Manual) Lymphocytes % (Manual) Monocytes % (Manual) Seg Neutrophils # Seg Neutrophils # Man Lymphocytes # (Manual) Monocytes # (Manual) PT INR ABG pH POC ABG pCO2 POC ABG pO2 ABG pO2 ABG HCO3 ABG O2 Saturation ABG Base Excess ABG Hemoglobin ABG Oxyhemoglobin ABG Sodium ABG Potassium ABG Chloride ABG Glucose Oxyhemoglobin Sodium Potassium Chloride Carbon Dioxide BUN Creatinine Glucose POC Glucose 147 H 162 H Lactic Acid Calcium Phosphorus Magnesium Total Bilirubin AST ALT Alkaline Phosphatase Total Protein Albumin Triglycerides Arterial Blood Glucose Arterial Blood Ionized Calcium Digoxin Crossmatch 01/05/21 01/05/21 01/06/21 17:50 23:32 04:15 WBC RBC Hgb Hct MCV MCHC RDW Plt Count Lymph % (Auto) [place] % (Auto) Lymph # (Auto) [place] # (Auto) Seg Neutrophils % Seg Neuts % (Manual) Lymphocytes % (Manual) Monocytes % (Manual) Seg Neutrophils # Seg Neutrophils # Man Lymphocytes # (Manual) Monocytes # (Manual) PT INR ABG pH POC ABG pCO2 POC ABG pO2 ABG pO2 191.0 H ABG HCO3 ABG O2 Saturation 99.2 H ABG Base Excess ABG Hemoglobin 9.0 L ABG Oxyhemoglobin ABG Sodium ABG Potassium ABG Chloride ABG Glucose Oxyhemoglobin Sodium Potassium Chloride Carbon Dioxide BUN Creatinine Glucose POC Glucose 155 H 115 H Lactic Acid Calcium Phosphorus Magnesium Total Bilirubin AST ALT Alkaline Phosphatase Total Protein Albumin Triglycerides Arterial Blood Glucose Arterial Blood Ionized Calcium Digoxin Crossmatch 01/06/21 01/06/21 01/06/21 04:45 05:56 07:03 WBC RBC 2.95 L Hgb 9.1 L Hct 26.8 L MCV MCHC RDW 16.8 H Plt Count Lymph % (Auto) [place] % (Auto) Lymph # (Auto) [place] # (Auto) Seg Neutrophils % Seg Neuts % (Manual) Lymphocytes % (Manual) Monocytes % (Manual) Seg Neutrophils # Seg Neutrophils # Man Lymphocytes # (Manual) Monocytes # (Manual) PT INR ABG pH POC ABG pCO2 POC ABG pO2 ABG pO2 ABG HCO3 ABG O2 Saturation ABG Base Excess ABG Hemoglobin ABG Oxyhemoglobin ABG Sodium ABG Potassium ABG Chloride ABG Glucose Oxyhemoglobin Sodium 135 L Potassium Chloride 95.9 L Carbon Dioxide BUN 82 H Creatinine 8.7 H Glucose 127 H POC Glucose 136 H Lactic Acid Calcium 8.3 L Phosphorus Magnesium Total Bilirubin AST ALT Alkaline Phosphatase Total Protein Albumin Triglycerides Arterial Blood Glucose Arterial Blood Ionized Calcium Digoxin Crossmatch 01/06/21 01/06/21 01/06/21 07:10 11:04 13:38 WBC RBC Hgb Hct MCV MCHC RDW Plt Count Lymph % (Auto) [place] % (Auto) Lymph # (Auto) [place] # (Auto) Seg Neutrophils % Seg Neuts % (Manual) Lymphocytes % (Manual) Monocytes % (Manual) Seg Neutrophils # Seg Neutrophils # Man Lymphocytes # (Manual) Monocytes # (Manual) PT INR ABG pH POC ABG pCO2 POC ABG pO2 ABG pO2 ABG HCO3 ABG O2 Saturation ABG Base Excess ABG Hemoglobin ABG Oxyhemoglobin ABG Sodium ABG Potassium ABG Chloride ABG Glucose Oxyhemoglobin Sodium Potassium Chloride Carbon Dioxide BUN Creatinine Glucose POC Glucose 178 H 155 H Lactic Acid Calcium Phosphorus Magnesium Total Bilirubin AST ALT Alkaline Phosphatase Total Protein Albumin Triglycerides Arterial Blood Glucose Arterial Blood Ionized Calcium Digoxin Crossmatch See Detail 01/06/21 01/06/21 01/07/21 17:35 22:21 03:07 WBC RBC Hgb Hct MCV MCHC RDW Plt Count Lymph % (Auto) [place] % (Auto) Lymph # (Auto) [place] # (Auto) Seg Neutrophils % Seg Neuts % (Manual) Lymphocytes % (Manual) Monocytes % (Manual) Seg Neutrophils # Seg Neutrophils # Man Lymphocytes # (Manual) Monocytes # (Manual) PT INR ABG pH POC ABG pCO2 POC ABG pO2 ABG pO2 ABG HCO3 ABG O2 Saturation ABG Base Excess ABG Hemoglobin 11.9 L ABG Oxyhemoglobin ABG Sodium 135.6 L ABG Potassium ABG Chloride ABG Glucose 181 H Oxyhemoglobin Sodium Potassium Chloride Carbon Dioxide BUN Creatinine Glucose POC Glucose 138 H 202 H Lactic Acid Calcium Phosphorus Magnesium Total Bilirubin AST ALT Alkaline Phosphatase Total Protein Albumin Triglycerides Arterial Blood Glucose 181 H Arterial Blood Ionized Calcium 4.3 L Digoxin Crossmatch 01/07/21 01/07/21 01/07/21 04:50 05:21 08:37 WBC 12.4 H RBC Hgb 11.1 L Hct 33.3 L D MCV MCHC RDW 17.0 H Plt Count Lymph % (Auto) 3.2 L [place] % (Auto) 9.4 H Lymph # (Auto) 0.4 L [place] # (Auto) 1.2 H Seg Neutrophils % 86.6 H Seg Neuts % (Manual) Lymphocytes % (Manual) Monocytes % (Manual) Seg Neutrophils # 10.7 H Seg Neutrophils # Man Lymphocytes # (Manual) Monocytes # (Manual) PT INR ABG pH POC ABG pCO2 POC ABG pO2 ABG pO2 ABG HCO3 ABG O2 Saturation ABG Base Excess ABG Hemoglobin ABG Oxyhemoglobin ABG Sodium ABG Potassium ABG Chloride ABG Glucose Oxyhemoglobin Sodium Potassium Chloride Carbon Dioxide BUN 60 H Creatinine 6.3 H Glucose 154 H POC Glucose 177 H Lactic Acid Calcium 8.3 L Phosphorus Magnesium Total Bilirubin AST ALT Alkaline Phosphatase Total Protein Albumin Triglycerides Arterial Blood Glucose Arterial Blood Ionized Calcium Digoxin Crossmatch 01/07/21 01/07/21 01/07/21 11:21 12:19 17:11 WBC RBC Hgb Hct MCV MCHC RDW Plt Count Lymph % (Auto) [place] % (Auto) Lymph # (Auto) [place] # (Auto) Seg Neutrophils % Seg Neuts % (Manual) Lymphocytes % (Manual) Monocytes % (Manual) Seg Neutrophils # Seg Neutrophils # Man Lymphocytes # (Manual) Monocytes # (Manual) PT INR ABG pH POC ABG pCO2 POC ABG pO2 ABG pO2 ABG HCO3 ABG O2 Saturation ABG Base Excess ABG Hemoglobin ABG Oxyhemoglobin ABG Sodium ABG Potassium ABG Chloride ABG Glucose Oxyhemoglobin Sodium Potassium Chloride Carbon Dioxide BUN Creatinine Glucose POC Glucose 144 H 137 H 119 H Lactic Acid Calcium Phosphorus Magnesium Total Bilirubin AST ALT Alkaline Phosphatase Total Protein Albumin Triglycerides Arterial Blood Glucose Arterial Blood Ionized Calcium Digoxin Crossmatch 01/07/21 01/07/21 01/08/21 17:14 23:39 04:34 WBC RBC Hgb Hct MCV MCHC RDW Plt Count Lymph % (Auto) [place] % (Auto) Lymph # (Auto) [place] # (Auto) Seg Neutrophils % Seg Neuts % (Manual) Lymphocytes % (Manual) Monocytes % (Manual) Seg Neutrophils # Seg Neutrophils # Man Lymphocytes # (Manual) Monocytes # (Manual) PT INR ABG pH 7.345 L POC ABG pCO2 POC ABG pO2 ABG pO2 67.4 L ABG HCO3 ABG O2 Saturation 94.3 L ABG Base Excess -3.9 L ABG Hemoglobin 8.9 L ABG Oxyhemoglobin ABG Sodium ABG Potassium ABG Chloride ABG Glucose Oxyhemoglobin 92.3 L Sodium Potassium Chloride Carbon Dioxide 20 L BUN 93 H Creatinine 8.8 H Glucose 120 H POC Glucose 129 H Lactic Acid Calcium Phosphorus Magnesium Total Bilirubin AST ALT Alkaline Phosphatase 133 H Total Protein 5.4 L Albumin 1.9 L Triglycerides Arterial Blood Glucose Arterial Blood Ionized Calcium Digoxin Crossmatch 01/08/21 01/08/21 01/08/21 05:26 11:38 17:19 WBC RBC Hgb Hct MCV MCHC RDW Plt Count Lymph % (Auto) [place] % (Auto) Lymph # (Auto) [place] # (Auto) Seg Neutrophils % Seg Neuts % (Manual) Lymphocytes % (Manual) Monocytes % (Manual) Seg Neutrophils # Seg Neutrophils # Man Lymphocytes # (Manual) Monocytes # (Manual) PT INR ABG pH POC ABG pCO2 POC ABG pO2 ABG pO2 ABG HCO3 ABG O2 Saturation ABG Base Excess ABG Hemoglobin ABG Oxyhemoglobin ABG Sodium ABG Potassium ABG Chloride ABG Glucose Oxyhemoglobin Sodium Potassium Chloride Carbon Dioxide BUN Creatinine Glucose POC Glucose 125 H 146 H 136 H Lactic Acid Calcium Phosphorus Magnesium Total Bilirubin AST ALT Alkaline Phosphatase Total Protein Albumin Triglycerides Arterial Blood Glucose Arterial Blood Ionized Calcium Digoxin Crossmatch 01/08/21 01/09/21 01/09/21 23:52 05:13 05:21 WBC RBC Hgb Hct MCV MCHC RDW Plt Count Lymph % (Auto) [place] % (Auto) Lymph # (Auto) [place] # (Auto) Seg Neutrophils % Seg Neuts % (Manual) Lymphocytes % (Manual) Monocytes % (Manual) Seg Neutrophils # Seg Neutrophils # Man Lymphocytes # (Manual) Monocytes # (Manual) PT INR ABG pH POC ABG pCO2 POC ABG pO2 ABG pO2 ABG HCO3 ABG O2 Saturation ABG Base Excess ABG Hemoglobin ABG Oxyhemoglobin ABG Sodium ABG Potassium ABG Chloride ABG Glucose Oxyhemoglobin Sodium Potassium Chloride Carbon Dioxide 16 L BUN 123 H Creatinine 10.8 H Glucose 145 H POC Glucose 143 H 144 H Lactic Acid Calcium Phosphorus 5.00 H D Magnesium 2.40 H Total Bilirubin AST ALT Alkaline Phosphatase Total Protein Albumin Triglycerides Arterial Blood Glucose Arterial Blood Ionized Calcium Digoxin Crossmatch 01/09/21 01/09/21 01/09/21 12:08 17:20 23:56 WBC RBC Hgb Hct MCV MCHC RDW Plt Count Lymph % (Auto) [place] % (Auto) Lymph # (Auto) [place] # (Auto) Seg Neutrophils % Seg Neuts % (Manual) Lymphocytes % (Manual) Monocytes % (Manual) Seg Neutrophils # Seg Neutrophils # Man Lymphocytes # (Manual) Monocytes # (Manual) PT INR ABG pH POC ABG pCO2 POC ABG pO2 ABG pO2 ABG HCO3 ABG O2 Saturation ABG Base Excess ABG Hemoglobin ABG Oxyhemoglobin ABG Sodium ABG Potassium ABG Chloride ABG Glucose Oxyhemoglobin Sodium Potassium Chloride Carbon Dioxide BUN Creatinine Glucose POC Glucose 153 H 160 H 158 H Lactic Acid Calcium Phosphorus Magnesium Total Bilirubin AST ALT Alkaline Phosphatase Total Protein Albumin Triglycerides Arterial Blood Glucose Arterial Blood Ionized Calcium Digoxin Crossmatch 01/10/21 01/10/21 01/10/21 04:52 05:44 07:41 WBC RBC Hgb Hct MCV MCHC RDW Plt Count Lymph % (Auto) [place] % (Auto) Lymph # (Auto) [place] # (Auto) Seg Neutrophils % Seg Neuts % (Manual) Lymphocytes % (Manual) Monocytes % (Manual) Seg Neutrophils # Seg Neutrophils # Man Lymphocytes # (Manual) Monocytes # (Manual) PT INR ABG pH POC ABG pCO2 POC ABG pO2 ABG pO2 ABG HCO3 ABG O2 Saturation ABG Base Excess ABG Hemoglobin ABG Oxyhemoglobin ABG Sodium ABG Potassium ABG Chloride ABG Glucose Oxyhemoglobin Sodium 135 L Potassium 3.5 L D Chloride 95.0 L Carbon Dioxide 21 L BUN 93 H Creatinine 8.3 H Glucose 127 H POC Glucose 135 H 157 H Lactic Acid Calcium Phosphorus Magnesium Total Bilirubin AST ALT Alkaline Phosphatase Total Protein Albumin Triglycerides Arterial Blood Glucose Arterial Blood Ionized Calcium Digoxin Crossmatch 01/10/21 01/10/21 01/10/21 09:26 12:03 17:44 WBC 18.2 H RBC 3.14 L Hgb 9.7 L Hct 28.2 L MCV MCHC RDW 16.5 H Plt Count Lymph % (Auto) [place] % (Auto) Lymph # (Auto) [place] # (Auto) Seg Neutrophils % Seg Neuts % (Manual) 95.0 H Lymphocytes % (Manual) 3.0 L Monocytes % (Manual) Seg Neutrophils # Seg Neutrophils # Man 17.3 H Lymphocytes # (Manual) 0.5 L Monocytes # (Manual) PT INR ABG pH POC ABG pCO2 POC ABG pO2 ABG pO2 ABG HCO3 ABG O2 Saturation ABG Base Excess ABG Hemoglobin ABG Oxyhemoglobin ABG Sodium ABG Potassium ABG Chloride ABG Glucose Oxyhemoglobin Sodium Potassium Chloride Carbon Dioxide BUN Creatinine Glucose POC Glucose 163 H 171 H Lactic Acid Calcium Phosphorus Magnesium Total Bilirubin AST ALT Alkaline Phosphatase Total Protein Albumin Triglycerides Arterial Blood Glucose Arterial Blood Ionized Calcium Digoxin Crossmatch 01/10/21 01/11/21 01/11/21 23:50 05:18 05:18 WBC RBC Hgb Hct MCV MCHC RDW Plt Count Lymph % (Auto) [place] % (Auto) Lymph # (Auto) [place] # (Auto) Seg Neutrophils % Seg Neuts % (Manual) Lymphocytes % (Manual) Monocytes % (Manual) Seg Neutrophils # Seg Neutrophils # Man Lymphocytes # (Manual) Monocytes # (Manual) PT INR ABG pH POC ABG pCO2 POC ABG pO2 ABG pO2 ABG HCO3 ABG O2 Saturation ABG Base Excess ABG Hemoglobin ABG Oxyhemoglobin ABG Sodium ABG Potassium ABG Chloride ABG Glucose Oxyhemoglobin Sodium 136 L Potassium Chloride 94.6 L Carbon Dioxide 19 L BUN 145 H Creatinine 10.6 H Glucose 152 H POC Glucose 151 H Lactic Acid Calcium Phosphorus 6.00 H D Magnesium Total Bilirubin AST ALT Alkaline Phosphatase Total Protein Albumin Triglycerides Arterial Blood Glucose Arterial Blood Ionized Calcium Digoxin 0.8 L Crossmatch 01/11/21 01/11/21 01/11/21 05:18 05:19 11:28 WBC 17.4 H RBC 3.34 L Hgb 10.2 L Hct 29.7 L MCV MCHC RDW 15.9 H Plt Count Lymph % (Auto) [place] % (Auto) Lymph # (Auto) [place] # (Auto) Seg Neutrophils % Seg Neuts % (Manual) Lymphocytes % (Manual) Monocytes % (Manual) Seg Neutrophils # Seg Neutrophils # Man Lymphocytes # (Manual) Monocytes # (Manual) PT INR ABG pH POC ABG pCO2 POC ABG pO2 ABG pO2 ABG HCO3 ABG O2 Saturation ABG Base Excess ABG Hemoglobin ABG Oxyhemoglobin ABG Sodium ABG Potassium ABG Chloride ABG Glucose Oxyhemoglobin Sodium Potassium Chloride Carbon Dioxide BUN Creatinine Glucose POC Glucose 149 H 178 H Lactic Acid Calcium Phosphorus Magnesium Total Bilirubin AST ALT Alkaline Phosphatase Total Protein Albumin Triglycerides Arterial Blood Glucose Arterial Blood Ionized Calcium Digoxin Crossmatch 01/11/21 01/11/21 01/12/21 17:31 23:14 05:18 WBC RBC Hgb Hct MCV MCHC RDW Plt Count Lymph % (Auto) [place] % (Auto) Lymph # (Auto) [place] # (Auto) Seg Neutrophils % Seg Neuts % (Manual) Lymphocytes % (Manual) Monocytes % (Manual) Seg Neutrophils # Seg Neutrophils # Man Lymphocytes # (Manual) Monocytes # (Manual) PT INR ABG pH POC ABG pCO2 POC ABG pO2 ABG pO2 ABG HCO3 ABG O2 Saturation ABG Base Excess ABG Hemoglobin ABG Oxyhemoglobin ABG Sodium ABG Potassium ABG Chloride ABG Glucose Oxyhemoglobin Sodium Potassium Chloride Carbon Dioxide BUN Creatinine Glucose POC Glucose 158 H 145 H 148 H Lactic Acid Calcium Phosphorus Magnesium Total Bilirubin AST ALT Alkaline Phosphatase Total Protein Albumin Triglycerides Arterial Blood Glucose Arterial Blood Ionized Calcium Digoxin Crossmatch 01/12/21 01/12/21 01/12/21 06:50 10:45 13:34 WBC RBC Hgb Hct MCV MCHC RDW Plt Count Lymph % (Auto) [place] % (Auto) Lymph # (Auto) [place] # (Auto) Seg Neutrophils % Seg Neuts % (Manual) Lymphocytes % (Manual) Monocytes % (Manual) Seg Neutrophils # Seg Neutrophils # Man Lymphocytes # (Manual) Monocytes # (Manual) PT INR ABG pH POC ABG pCO2 POC ABG pO2 ABG pO2 ABG HCO3 ABG O2 Saturation ABG Base Excess ABG Hemoglobin ABG Oxyhemoglobin ABG Sodium ABG Potassium ABG Chloride ABG Glucose Oxyhemoglobin Sodium Potassium 2.9 L* D Chloride 94.8 L Carbon Dioxide BUN 102 H Creatinine 8.3 H Glucose 139 H POC Glucose 151 H 134 H Lactic Acid Calcium 8.1 L Phosphorus 5.00 H Magnesium Total Bilirubin AST ALT Alkaline Phosphatase Total Protein Albumin Triglycerides Arterial Blood Glucose Arterial Blood Ionized Calcium Digoxin Crossmatch 01/12/21 01/12/21 01/13/21 16:59 23:06 03:45 WBC RBC Hgb Hct MCV MCHC RDW Plt Count Lymph % (Auto) [place] % (Auto) Lymph # (Auto) [place] # (Auto) Seg Neutrophils % Seg Neuts % (Manual) Lymphocytes % (Manual) Monocytes % (Manual) Seg Neutrophils # Seg Neutrophils # Man Lymphocytes # (Manual) Monocytes # (Manual) PT INR ABG pH POC ABG pCO2 POC ABG pO2 ABG pO2 ABG HCO3 ABG O2 Saturation ABG Base Excess ABG Hemoglobin ABG Oxyhemoglobin ABG Sodium ABG Potassium ABG Chloride ABG Glucose Oxyhemoglobin Sodium 136 L Potassium 3.4 L Chloride 92.6 L Carbon Dioxide BUN 134 H Creatinine 10.4 H Glucose 126 H POC Glucose 108 H 135 H Lactic Acid Calcium 8.3 L Phosphorus 5.60 H Magnesium 1.50 L Total Bilirubin AST ALT Alkaline Phosphatase Total Protein Albumin Triglycerides Arterial Blood Glucose Arterial Blood Ionized Calcium Digoxin Crossmatch 01/13/21 01/13/21 01/13/21 03:45 05:55 11:59 WBC 17.6 H RBC 3.33 L Hgb 10.2 L Hct 29.5 L MCV MCHC 35 H RDW 15.5 H Plt Count Lymph % (Auto) 4.4 L [place] % (Auto) 10.3 H Lymph # (Auto) 0.8 L [place] # (Auto) 1.8 H Seg Neutrophils % 84.2 H Seg Neuts % (Manual) Lymphocytes % (Manual) Monocytes % (Manual) Seg Neutrophils # 14.8 H Seg Neutrophils # Man Lymphocytes # (Manual) Monocytes # (Manual) PT INR ABG pH POC ABG pCO2 POC ABG pO2 ABG pO2 ABG HCO3 ABG O2 Saturation ABG Base Excess ABG Hemoglobin ABG Oxyhemoglobin ABG Sodium ABG Potassium ABG Chloride ABG Glucose Oxyhemoglobin Sodium Potassium Chloride Carbon Dioxide BUN Creatinine Glucose POC Glucose 134 H 141 H Lactic Acid Calcium Phosphorus Magnesium Total Bilirubin AST ALT Alkaline Phosphatase Total Protein Albumin Triglycerides Arterial Blood Glucose Arterial Blood Ionized Calcium Digoxin Crossmatch 01/13/21 01/14/21 01/14/21 23:09 05:39 05:57 WBC RBC Hgb Hct MCV MCHC RDW Plt Count Lymph % (Auto) [place] % (Auto) Lymph # (Auto) [place] # (Auto) Seg Neutrophils % Seg Neuts % (Manual) Lymphocytes % (Manual) Monocytes % (Manual) Seg Neutrophils # Seg Neutrophils # Man Lymphocytes # (Manual) Monocytes # (Manual) PT INR ABG pH POC ABG pCO2 POC ABG pO2 ABG pO2 ABG HCO3 ABG O2 Saturation ABG Base Excess ABG Hemoglobin ABG Oxyhemoglobin ABG Sodium ABG Potassium ABG Chloride ABG Glucose Oxyhemoglobin Sodium Potassium Chloride 97.6 L Carbon Dioxide BUN 81 H Creatinine 7.6 H Glucose 193 H POC Glucose 106 H 190 H Lactic Acid Calcium 8.2 L Phosphorus 4.60 H Magnesium Total Bilirubin AST ALT Alkaline Phosphatase Total Protein Albumin Triglycerides Arterial Blood Glucose Arterial Blood Ionized Calcium Digoxin Crossmatch 01/14/21 01/14/21 01/14/21 10:00 16:56 16:59 WBC 17.0 H RBC 3.10 L Hgb 9.6 L Hct 27.4 L MCV MCHC 35 H RDW 15.6 H Plt Count Lymph % (Auto) [place] % (Auto) Lymph # (Auto) [place] # (Auto) Seg Neutrophils % Seg Neuts % (Manual) Lymphocytes % (Manual) Monocytes % (Manual) Seg Neutrophils # Seg Neutrophils # Man Lymphocytes # (Manual) Monocytes # (Manual) PT INR ABG pH POC ABG pCO2 POC ABG pO2 ABG pO2 ABG HCO3 ABG O2 Saturation ABG Base Excess ABG Hemoglobin ABG Oxyhemoglobin ABG Sodium ABG Potassium ABG Chloride ABG Glucose Oxyhemoglobin Sodium Potassium Chloride Carbon Dioxide BUN Creatinine Glucose POC Glucose 37 L 34 L Lactic Acid Calcium Phosphorus Magnesium Total Bilirubin AST ALT Alkaline Phosphatase Total Protein Albumin Triglycerides Arterial Blood Glucose Arterial Blood Ionized Calcium Digoxin Crossmatch 01/14/21 01/14/21 01/14/21 17:02 18:34 23:17 WBC RBC Hgb Hct MCV MCHC RDW Plt Count Lymph % (Auto) [place] % (Auto) Lymph # (Auto) [place] # (Auto) Seg Neutrophils % Seg Neuts % (Manual) Lymphocytes % (Manual) Monocytes % (Manual) Seg Neutrophils # Seg Neutrophils # Man Lymphocytes # (Manual) Monocytes # (Manual) PT INR ABG pH POC ABG pCO2 POC ABG pO2 ABG pO2 ABG HCO3 ABG O2 Saturation ABG Base Excess ABG Hemoglobin ABG Oxyhemoglobin ABG Sodium ABG Potassium ABG Chloride ABG Glucose Oxyhemoglobin Sodium Potassium Chloride Carbon Dioxide BUN Creatinine Glucose POC Glucose 35 L 143 H 53 L Lactic Acid Calcium Phosphorus Magnesium Total Bilirubin AST ALT Alkaline Phosphatase Total Protein Albumin Triglycerides Arterial Blood Glucose Arterial Blood Ionized Calcium Digoxin Crossmatch 01/15/21 01/15/21 01/15/21 00:34 04:00 04:00 WBC 15.9 H RBC 3.02 L Hgb 9.3 L Hct 27.3 L MCV MCHC RDW 15.6 H Plt Count Lymph % (Auto) [place] % (Auto) Lymph # (Auto) [place] # (Auto) Seg Neutrophils % Seg Neuts % (Manual) Lymphocytes % (Manual) Monocytes % (Manual) Seg Neutrophils # Seg Neutrophils # Man Lymphocytes # (Manual) Monocytes # (Manual) PT INR ABG pH POC ABG pCO2 POC ABG pO2 ABG pO2 ABG HCO3 ABG O2 Saturation ABG Base Excess ABG Hemoglobin ABG Oxyhemoglobin ABG Sodium ABG Potassium ABG Chloride ABG Glucose Oxyhemoglobin Sodium 136 L Potassium Chloride 94.3 L Carbon Dioxide BUN 117 H Creatinine 9.9 H Glucose 217 H POC Glucose 181 H Lactic Acid Calcium 8.3 L Phosphorus Magnesium Total Bilirubin AST ALT Alkaline Phosphatase Total Protein Albumin Triglycerides Arterial Blood Glucose Arterial Blood Ionized Calcium Digoxin Crossmatch 01/15/21 01/15/21 01/15/21 05:29 11:51 23:13 WBC RBC Hgb Hct MCV MCHC RDW Plt Count Lymph % (Auto) [place] % (Auto) Lymph # (Auto) [place] # (Auto) Seg Neutrophils % Seg Neuts % (Manual) Lymphocytes % (Manual) Monocytes % (Manual) Seg Neutrophils # Seg Neutrophils # Man Lymphocytes # (Manual) Monocytes # (Manual) PT INR ABG pH POC ABG pCO2 POC ABG pO2 ABG pO2 ABG HCO3 ABG O2 Saturation ABG Base Excess ABG Hemoglobin ABG Oxyhemoglobin ABG Sodium ABG Potassium ABG Chloride ABG Glucose Oxyhemoglobin Sodium Potassium Chloride Carbon Dioxide BUN Creatinine Glucose POC Glucose 221 H 62 L 154 H Lactic Acid Calcium Phosphorus Magnesium Total Bilirubin AST ALT Alkaline Phosphatase Total Protein Albumin Triglycerides Arterial Blood Glucose Arterial Blood Ionized Calcium Digoxin Crossmatch 01/16/21 01/16/21 01/16/21 05:04 06:44 06:44 WBC 14.8 H RBC 2.76 L Hgb 8.2 L Hct 24.8 L MCV MCHC RDW 15.6 H Plt Count Lymph % (Auto) [place] % (Auto) Lymph # (Auto) [place] # (Auto) Seg Neutrophils % Seg Neuts % (Manual) Lymphocytes % (Manual) Monocytes % (Manual) Seg Neutrophils # Seg Neutrophils # Man Lymphocytes # (Manual) Monocytes # (Manual) PT INR ABG pH POC ABG pCO2 POC ABG pO2 ABG pO2 ABG HCO3 ABG O2 Saturation ABG Base Excess ABG Hemoglobin ABG Oxyhemoglobin ABG Sodium ABG Potassium ABG Chloride ABG Glucose Oxyhemoglobin Sodium 133 L Potassium Chloride 92.3 L Carbon Dioxide 20 L BUN 160 H Creatinine 12.1 H Glucose 177 H POC Glucose 168 H Lactic Acid Calcium 8.1 L Phosphorus 5.50 H Magnesium 2.50 H Total Bilirubin AST ALT Alkaline Phosphatase Total Protein Albumin Triglycerides Arterial Blood Glucose Arterial Blood Ionized Calcium Digoxin Crossmatch 01/16/21 01/17/21 01/17/21 23:20 05:14 05:14 WBC 12.7 H RBC 2.75 L Hgb 8.5 L Hct 24.6 L MCV MCHC 35 H RDW 15.4 H Plt Count Lymph % (Auto) [place] % (Auto) Lymph # (Auto) [place] # (Auto) Seg Neutrophils % Seg Neuts % (Manual) Lymphocytes % (Manual) Monocytes % (Manual) Seg Neutrophils # Seg Neutrophils # Man Lymphocytes # (Manual) Monocytes # (Manual) PT INR ABG pH POC ABG pCO2 POC ABG pO2 ABG pO2 ABG HCO3 ABG O2 Saturation ABG Base Excess ABG Hemoglobin ABG Oxyhemoglobin ABG Sodium ABG Potassium ABG Chloride ABG Glucose Oxyhemoglobin Sodium Potassium Chloride 97.9 L Carbon Dioxide BUN 84 H Creatinine 7.8 H Glucose 176 H POC Glucose 153 H Lactic Acid Calcium 8.0 L Phosphorus Magnesium Total Bilirubin AST ALT Alkaline Phosphatase Total Protein Albumin Triglycerides Arterial Blood Glucose Arterial Blood Ionized Calcium Digoxin Crossmatch 01/17/21 01/17/21 01/18/21 05:33 11:58 00:07 WBC RBC Hgb Hct MCV MCHC RDW Plt Count Lymph % (Auto) [place] % (Auto) Lymph # (Auto) [place] # (Auto) Seg Neutrophils % Seg Neuts % (Manual) Lymphocytes % (Manual) Monocytes % (Manual) Seg Neutrophils # Seg Neutrophils # Man Lymphocytes # (Manual) Monocytes # (Manual) PT INR ABG pH POC ABG pCO2 POC ABG pO2 ABG pO2 ABG HCO3 ABG O2 Saturation ABG Base Excess ABG Hemoglobin ABG Oxyhemoglobin ABG Sodium ABG Potassium ABG Chloride ABG Glucose Oxyhemoglobin Sodium Potassium Chloride Carbon Dioxide BUN Creatinine Glucose POC Glucose 162 H 64 L 146 H Lactic Acid Calcium Phosphorus Magnesium Total Bilirubin AST ALT Alkaline Phosphatase Total Protein Albumin Triglycerides Arterial Blood Glucose Arterial Blood Ionized Calcium Digoxin Crossmatch 01/18/21 01/18/21 01/18/21 04:19 04:19 06:15 WBC 15.6 H RBC 3.00 L Hgb 9.2 L Hct 26.8 L MCV MCHC 35 H RDW 15.6 H Plt Count Lymph % (Auto) [place] % (Auto) Lymph # (Auto) [place] # (Auto) Seg Neutrophils % Seg Neuts % (Manual) Lymphocytes % (Manual) Monocytes % (Manual) Seg Neutrophils # Seg Neutrophils # Man Lymphocytes # (Manual) Monocytes # (Manual) PT INR ABG pH POC ABG pCO2 POC ABG pO2 ABG pO2 ABG HCO3 ABG O2 Saturation ABG Base Excess ABG Hemoglobin ABG Oxyhemoglobin ABG Sodium ABG Potassium ABG Chloride ABG Glucose Oxyhemoglobin Sodium Potassium Chloride 96.2 L Carbon Dioxide BUN 117 H Creatinine 10.0 H Glucose 165 H POC Glucose 189 H Lactic Acid Calcium Phosphorus 4.70 H D Magnesium Total Bilirubin AST ALT Alkaline Phosphatase Total Protein Albumin Triglycerides Arterial Blood Glucose Arterial Blood Ionized Calcium Digoxin Crossmatch 01/18/21 01/18/21 01/18/21 11:53 13:44 15:08 WBC RBC Hgb Hct MCV MCHC RDW Plt Count Lymph % (Auto) [place] % (Auto) Lymph # (Auto) [place] # (Auto) Seg Neutrophils % Seg Neuts % (Manual) Lymphocytes % (Manual) Monocytes % (Manual) Seg Neutrophils # Seg Neutrophils # Man Lymphocytes # (Manual) Monocytes # (Manual) PT INR ABG pH POC ABG pCO2 POC ABG pO2 ABG pO2 ABG HCO3 ABG O2 Saturation ABG Base Excess ABG Hemoglobin ABG Oxyhemoglobin ABG Sodium ABG Potassium ABG Chloride ABG Glucose Oxyhemoglobin Sodium Potassium Chloride Carbon Dioxide BUN Creatinine Glucose POC Glucose 69 L 50 L 56 L Lactic Acid Calcium Phosphorus Magnesium Total Bilirubin AST ALT Alkaline Phosphatase Total Protein Albumin Triglycerides Arterial Blood Glucose Arterial Blood Ionized Calcium Digoxin Crossmatch 01/18/21 01/19/21 01/19/21 17:50 04:55 08:56 WBC 12.7 H RBC 2.89 L Hgb 8.7 L Hct 25.6 L MCV MCHC RDW 15.5 H Plt Count Lymph % (Auto) [place] % (Auto) Lymph # (Auto) [place] # (Auto) Seg Neutrophils % Seg Neuts % (Manual) Lymphocytes % (Manual) Monocytes % (Manual) Seg Neutrophils # Seg Neutrophils # Man Lymphocytes # (Manual) Monocytes # (Manual) PT INR ABG pH POC ABG pCO2 POC ABG pO2 ABG pO2 ABG HCO3 ABG O2 Saturation ABG Base Excess ABG Hemoglobin ABG Oxyhemoglobin ABG Sodium ABG Potassium ABG Chloride ABG Glucose Oxyhemoglobin Sodium Potassium Chloride Carbon Dioxide BUN Creatinine Glucose POC Glucose 137 H 120 H Lactic Acid Calcium Phosphorus Magnesium Total Bilirubin AST ALT Alkaline Phosphatase Total Protein Albumin Triglycerides Arterial Blood Glucose Arterial Blood Ionized Calcium Digoxin Crossmatch 01/19/21 01/19/21 01/19/21 08:56 11:33 17:32 WBC RBC Hgb Hct MCV MCHC RDW Plt Count Lymph % (Auto) [place] % (Auto) Lymph # (Auto) [place] # (Auto) Seg Neutrophils % Seg Neuts % (Manual) Lymphocytes % (Manual) Monocytes % (Manual) Seg Neutrophils # Seg Neutrophils # Man Lymphocytes # (Manual) Monocytes # (Manual) PT INR ABG pH POC ABG pCO2 POC ABG pO2 ABG pO2 ABG HCO3 ABG O2 Saturation ABG Base Excess ABG Hemoglobin ABG Oxyhemoglobin ABG Sodium ABG Potassium ABG Chloride ABG Glucose Oxyhemoglobin Sodium Potassium Chloride Carbon Dioxide BUN 66 H Creatinine 7.7 H Glucose 119 H POC Glucose 160 H 125 H Lactic Acid Calcium 8.3 L Phosphorus Magnesium Total Bilirubin AST ALT Alkaline Phosphatase Total Protein Albumin Triglycerides Arterial Blood Glucose Arterial Blood Ionized Calcium Digoxin Crossmatch 01/19/21 01/20/21 01/20/21 23:30 03:35 03:35 WBC 12.0 H RBC 2.62 L Hgb 8.3 L Hct 23.2 L MCV MCHC 36 H RDW Plt Count Lymph % (Auto) [place] % (Auto) Lymph # (Auto) [place] # (Auto) Seg Neutrophils % Seg Neuts % (Manual) Lymphocytes % (Manual) Monocytes % (Manual) Seg Neutrophils # Seg Neutrophils # Man Lymphocytes # (Manual) Monocytes # (Manual) PT INR ABG pH POC ABG pCO2 POC ABG pO2 ABG pO2 ABG HCO3 ABG O2 Saturation ABG Base Excess ABG Hemoglobin ABG Oxyhemoglobin ABG Sodium ABG Potassium ABG Chloride ABG Glucose Oxyhemoglobin Sodium Potassium Chloride Carbon Dioxide BUN 46 H Creatinine 5.9 H Glucose 128 H POC Glucose 127 H Lactic Acid Calcium Phosphorus Magnesium Total Bilirubin AST ALT Alkaline Phosphatase Total Protein Albumin Triglycerides Arterial Blood Glucose Arterial Blood Ionized Calcium Digoxin Crossmatch 01/20/21 01/20/21 01/20/21 06:19 11:55 18:00 WBC RBC Hgb Hct MCV MCHC RDW Plt Count Lymph % (Auto) [place] % (Auto) Lymph # (Auto) [place] # (Auto) Seg Neutrophils % Seg Neuts % (Manual) Lymphocytes % (Manual) Monocytes % (Manual) Seg Neutrophils # Seg Neutrophils # Man Lymphocytes # (Manual) Monocytes # (Manual) PT INR ABG pH POC ABG pCO2 POC ABG pO2 ABG pO2 ABG HCO3 ABG O2 Saturation ABG Base Excess ABG Hemoglobin ABG Oxyhemoglobin ABG Sodium ABG Potassium ABG Chloride ABG Glucose Oxyhemoglobin Sodium Potassium Chloride Carbon Dioxide BUN Creatinine Glucose POC Glucose 119 H 128 H 115 H Lactic Acid Calcium Phosphorus Magnesium Total Bilirubin AST ALT Alkaline Phosphatase Total Protein Albumin Triglycerides Arterial Blood Glucose Arterial Blood Ionized Calcium Digoxin Crossmatch 01/20/21 01/21/21 01/21/21 23:26 04:39 05:27 WBC RBC Hgb Hct MCV MCHC RDW Plt Count Lymph % (Auto) [place] % (Auto) Lymph # (Auto) [place] # (Auto) Seg Neutrophils % Seg Neuts % (Manual) Lymphocytes % (Manual) Monocytes % (Manual) Seg Neutrophils # Seg Neutrophils # Man Lymphocytes # (Manual) Monocytes # (Manual) PT INR ABG pH POC ABG pCO2 POC ABG pO2 ABG pO2 ABG HCO3 ABG O2 Saturation ABG Base Excess ABG Hemoglobin ABG Oxyhemoglobin ABG Sodium ABG Potassium ABG Chloride ABG Glucose Oxyhemoglobin Sodium Potassium Chloride Carbon Dioxide BUN 37 H Creatinine 5.3 H Glucose 109 H POC Glucose 108 H 107 H Lactic Acid Calcium Phosphorus 2.10 L Magnesium 1.50 L Total Bilirubin AST ALT Alkaline Phosphatase 143 H Total Protein 6.1 L Albumin 3.0 L Triglycerides Arterial Blood Glucose Arterial Blood Ionized Calcium Digoxin Crossmatch 01/21/21 01/21/21 01/22/21 11:35 17:53 00:20 WBC RBC Hgb Hct MCV MCHC RDW Plt Count Lymph % (Auto) [place] % (Auto) Lymph # (Auto) [place] # (Auto) Seg Neutrophils % Seg Neuts % (Manual) Lymphocytes % (Manual) Monocytes % (Manual) Seg Neutrophils # Seg Neutrophils # Man Lymphocytes # (Manual) Monocytes # (Manual) PT INR ABG pH POC ABG pCO2 POC ABG pO2 ABG pO2 ABG HCO3 ABG O2 Saturation ABG Base Excess ABG Hemoglobin ABG Oxyhemoglobin ABG Sodium ABG Potassium ABG Chloride ABG Glucose Oxyhemoglobin Sodium Potassium Chloride Carbon Dioxide BUN Creatinine Glucose POC Glucose 133 H 124 H 122 H Lactic Acid Calcium Phosphorus Magnesium Total Bilirubin AST ALT Alkaline Phosphatase Total Protein Albumin Triglycerides Arterial Blood Glucose Arterial Blood Ionized Calcium Digoxin Crossmatch 01/22/21 01/22/21 01/22/21 04:00 06:09 11:36 WBC RBC Hgb Hct MCV MCHC RDW Plt Count Lymph % (Auto) [place] % (Auto) Lymph # (Auto) [place] # (Auto) Seg Neutrophils % Seg Neuts % (Manual) Lymphocytes % (Manual) Monocytes % (Manual) Seg Neutrophils # Seg Neutrophils # Man Lymphocytes # (Manual) Monocytes # (Manual) PT INR ABG pH POC ABG pCO2 POC ABG pO2 ABG pO2 ABG HCO3 ABG O2 Saturation ABG Base Excess ABG Hemoglobin ABG Oxyhemoglobin ABG Sodium ABG Potassium ABG Chloride ABG Glucose Oxyhemoglobin Sodium Potassium Chloride Carbon Dioxide BUN 65 H Creatinine 8.2 H D Glucose 111 H POC Glucose 122 H 132 H Lactic Acid Calcium Phosphorus Magnesium Total Bilirubin AST ALT Alkaline Phosphatase Total Protein Albumin Triglycerides Arterial Blood Glucose Arterial Blood Ionized Calcium Digoxin Crossmatch 01/22/21 01/22/21 01/23/21 17:17 23:18 05:29 WBC RBC Hgb Hct MCV MCHC RDW Plt Count Lymph % (Auto) [place] % (Auto) Lymph # (Auto) [place] # (Auto) Seg Neutrophils % Seg Neuts % (Manual) Lymphocytes % (Manual) Monocytes % (Manual) Seg Neutrophils # Seg Neutrophils # Man Lymphocytes # (Manual) Monocytes # (Manual) PT INR ABG pH POC ABG pCO2 POC ABG pO2 ABG pO2 ABG HCO3 ABG O2 Saturation ABG Base Excess ABG Hemoglobin ABG Oxyhemoglobin ABG Sodium ABG Potassium ABG Chloride ABG Glucose Oxyhemoglobin Sodium Potassium Chloride Carbon Dioxide BUN Creatinine Glucose POC Glucose 135 H 128 H 129 H Lactic Acid Calcium Phosphorus Magnesium Total Bilirubin AST ALT Alkaline Phosphatase Total Protein Albumin Triglycerides Arterial Blood Glucose Arterial Blood Ionized Calcium Digoxin Crossmatch 01/23/21 01/23/21 01/23/21 05:45 11:28 16:39 WBC RBC Hgb Hct MCV MCHC RDW Plt Count Lymph % (Auto) [place] % (Auto) Lymph # (Auto) [place] # (Auto) Seg Neutrophils % Seg Neuts % (Manual) Lymphocytes % (Manual) Monocytes % (Manual) Seg Neutrophils # Seg Neutrophils # Man Lymphocytes # (Manual) Monocytes # (Manual) PT INR ABG pH POC ABG pCO2 POC ABG pO2 ABG pO2 ABG HCO3 ABG O2 Saturation ABG Base Excess ABG Hemoglobin ABG Oxyhemoglobin ABG Sodium ABG Potassium ABG Chloride ABG Glucose Oxyhemoglobin Sodium Potassium Chloride Carbon Dioxide BUN 96 H Creatinine 10.8 H Glucose 124 H POC Glucose 160 H 116 H Lactic Acid Calcium Phosphorus Magnesium 2.50 H Total Bilirubin AST ALT Alkaline Phosphatase Total Protein Albumin Triglycerides Arterial Blood Glucose Arterial Blood Ionized Calcium Digoxin Crossmatch 01/24/21 01/24/21 01/24/21 00:02 04:45 05:01 WBC RBC Hgb Hct MCV MCHC RDW Plt Count Lymph % (Auto) [place] % (Auto) Lymph # (Auto) [place] # (Auto) Seg Neutrophils % Seg Neuts % (Manual) Lymphocytes % (Manual) Monocytes % (Manual) Seg Neutrophils # Seg Neutrophils # Man Lymphocytes # (Manual) Monocytes # (Manual) PT INR ABG pH POC ABG pCO2 POC ABG pO2 ABG pO2 ABG HCO3 ABG O2 Saturation ABG Base Excess ABG Hemoglobin ABG Oxyhemoglobin ABG Sodium ABG Potassium ABG Chloride ABG Glucose Oxyhemoglobin Sodium Potassium 3.5 L Chloride Carbon Dioxide BUN 56 H Creatinine 7.7 H Glucose 102 H POC Glucose 120 H 108 H Lactic Acid Calcium Phosphorus Magnesium Total Bilirubin AST ALT Alkaline Phosphatase Total Protein Albumin Triglycerides Arterial Blood Glucose Arterial Blood Ionized Calcium Digoxin Crossmatch Allied health notes reviewed: nursing
--- NOTE | 2021-01-24 12:42 | Progress Note ---
Assessment and Plan Cultures: 12/22/2020 blood culture: Streptococcus bovis, Prevotella 12/22/2020 PD fluid culture: No growth 12/24/2020 tracheal aspirate culture: No growth 12/24/2020 blood culture: No growth 12/31/2020 sputum culture: No growth A/P: 60-year-old male with ESRD on PD, Crohn's disease, CHF, gastroesophageal reflux disease was admitted to the hospital with complaints of abdominal pain and fever: #Severe sepsis with shock: improved. Secondary to small bowel obstruction/necrotic bowel with associated peritonitis. Status post exploratory laparotomy on 12/23/2020 with extensive lysis, primary anastomosis, found to have necrotic segment of small bowel. #Small bowel obstruction/necrotic bowel: with concern for PD associated peritonitis: Nephrology and general surgery following. Status post exploratory laparotomy on 12/23/2020 with extensive lysis, primary anastomosis, found to have necrotic segment of small bowel. PD catheter remains in place. S/p ex lap, resection of perforated anastamosis, washout and abthera wound vac placement on 01/01. Repeat CT abdomen showed no new abscesses, noted small free fluid. S/p Exploratory laparotomy, Right hemicolectomy, Peritoneal lavage, Partial omentectomy, ABThera wound VAC placement on 01/03/2021. Complicated intra- abdominal situation per d/w Dr. Sanchez, plan to continue IV abx for now, has limited surgical options at this time. #Streptococcus bovis bacteremia and Prevotella bacteremia: secondary to above. TTE without obvious vegetations. Repeat blood cultures negative. #ESRD: Renally dose antibiotics. Used to be on PD. On HD. #Acute respiratory failure: off the vent. Recs: -stop Zosyn after today's doses Yesika Denny MD, FACP [facility] O: [phone] F: [phone] Subjective Date of service: 01/24/21 Principal diagnosis: Ac hypoxemic resp failure; Severe Sepsis; Peritonitis; Acute SBO; ESRD; CHF Interval history: Low grade temperature. Got NG tube placed again. Objective - Exam Narrative Exam: Physical Exam: Constitutional: awake alert, calm Head, Ears, Nose: Normocephalic, atraumatic. External ears, nose normal Eyes: Conjunctivae/corneas clear. No icterus. No ptosis. Neck: supple Cardiovascular: S1, S2 + Respiratory: AE fair bilaterally GI: VAC +, bowel sounds +, drain + Musculoskeletal: No pedal edema, no cyanosis. Skin: No rash or abscess Hem/Lymphatic: No palpable cervical or supraclavicular nodes. No lymphangitis Psych: calm, no agitation Neurological: awake, alert, oriented. - Constitutional Vitals: Vital Signs Temp Pulse Resp BP Pulse Ox 98.9 F 74 16 153/74 96 01/24/21 08:00 01/24/21 10:00 01/24/21 10:00 01/24/21 10:00 01/24/21 10:00 Temperature -Last 24 Hours Temperature 98.9 F Temperature 99.0 F Temperature 100.0 F Temperature 98.7 F Temperature 98.0 F Temperature 97.9 F - Labs CBC & Chem 7: 01/20/21 03:35 01/24/21 04:45 Labs: Abnormal lab results 01/23/21 01/23/21 01/24/21 Range/Units 11:28 16:39 00:02 Potassium (3.6-5.0) mmol/L BUN (9-20) mg/dL Creatinine (0.8-1.3) mg/dL Glucose (75-100) mg/dL POC Glucose 160 H 116 H 120 H (70-105) mg/dL 01/24/21 01/24/21 Range/Units 04:45 05:01 Potassium 3.5 L (3.6-5.0) mmol/L BUN 56 H (9-20) mg/dL Creatinine 7.7 H (0.8-1.3) mg/dL Glucose 102 H (75-100) mg/dL POC Glucose 108 H (70-105) mg/dL
--- NOTE | 2021-01-24 16:17 | Progress Note ---
Assessment and Plan Assessment: * ESRD previouasly on peritoneal dialysis; now on back up HD (on peritoneal dialysis for 2 years) * Small bowel obstruction --s/p ex-lap with jejuno-ileal anastamosis --s/p ex lap with extensive lysis of adhesions and two small bowel resections with primary anastamosis for SBO with necrotic segment small bowel. --s/p ex lap, resection of perforated anastamosis, washout and abthera wound vac placement. --s/p ex lap with right hemicolectomy. * Acute respiratory failure * Septic shock - resolved * Bacteremia - resolved * Anemia of ESRD * Atrial fibrilation, new onset * Post op ileus Plan: * Continue HD MWF via left IJ permcath (12/27) * 3K bath with dialysis * UF as tolerated * Epogen 10k units w/ dialysis * Rate control per cardiology * Abx per primary team/ID * Nutrition per primary team * Maintatin MAP >65 * Surgery notes appreciated * He will also require outpatient hemodialysis chair prior to discharge * Most likely secondary to catabolic state. Dialysis time was increased to 4 hours. Subjective Date of service: 01/24/21 Principal diagnosis: Ac hypoxemic resp failure; Severe Sepsis; Peritonitis; Acute SBO; ESRD; CHF Interval history: Sitting up in chair Notes abdominal pain improved with pain regimen Objective - Exam Narrative Exam: General appearance: NAD Eyes: anicteric sclerae HENT: Normocephalic, Atraumatic Neck: supple, tracheal midline, no JVD Lungs: CTAB CV: RRR Abdomen: Soft, distended, periumbilical tenderness Extremities: no edema, no cyanosis Skin: No rash. Psych: Calm Neuro: Following commands - Vital Signs Vital signs: Vital Signs - 12hr 01/24/21 01/24/21 01/24/21 06:00 06:16 08:00 Temperature 98.9 F Pulse Rate 70 72 75 Pulse Rate [ 67 From Monitor] Respiratory 13 25 H Rate Respiratory Rate [Anterior Abdomen] Blood Pressure 149/75 148/73 153/74 O2 Sat by Pulse 99 92 Oximetry 01/24/21 01/24/21 01/24/21 10:00 12:00 14:00 Temperature 99.2 F Pulse Rate 74 73 75 Pulse Rate [ 67 From Monitor] Respiratory 27 H 17 14 Rate Respiratory 16 Rate [Anterior Abdomen] Blood Pressure 153/74 143/51 147/73 O2 Sat by Pulse 96 96 94 Oximetry - Lab 01/20/21 03:35 01/24/21 04:45 Most recent lab results ABG pH 7.345 pH Units (7.350-7.450) L 01/07/21 17:14 ABG pCO2 40.3 mm Hg 01/07/21 17:14 ABG pO2 67.4 mm Hg (80.0-90.0) L 01/07/21 17:14 ABG HCO3 21.5 mmol/L (20.0-26.0) 01/07/21 17:14 ABG O2 Saturation 94.3 % (95.0-99.0) L 01/07/21 17:14 Calcium 8.4 mg/dL (8.4-10.2) 01/24/21 04:45 Phosphorus 2.60 mg/dL (2.5-4.5) 01/23/21 05:45 Magnesium 1.90 mg/dL (1.7-2.3) 01/24/21 04:45 Medications & Allergies - Medications Allergies/Adverse Reactions: Allergies No Known Allergies Allergy (Verified 06/09/20 15:27) Home Medications: Home Medications Medication Instructions Recorded Confirmed Last Taken Type Albuterol Mdi (or & Nicu Only) 2 puff IH QID PRN #1 inhalation 04/01/17 11/01/20 10/31/20 09:00 Rx [ProAir HFA Inhaler] Calcium Acetate 667 mg PO DAILY 04/20/20 11/01/20 10/31/20 09:00 History Centrum Men's Tablet 1 tab PO DAILY 04/20/20 11/01/20 10/31/20 09:00 History Cinacalcet 30 mg PO DAILY 04/20/20 11/01/20 10/31/20 09:00 History Dialyvite with Zinc Tablet 1 tab PO DAILY 04/20/20 11/01/20 10/31/20 09:00 History Magnesium 250 mg PO BID 04/20/20 11/01/20 10/31/20 17:00 History Triamcinolone 0.1% 1 1000units TRANSDERMA DAILY 04/20/20 11/01/20 10/31/20 09:00 History Vit B12/Folic Acid/B6/Aa No.15 1,000 mg PO DAILY 04/20/20 11/01/20 10/31/20 09:00 History amLODIPine 10 mg PO DAILY 06/09/20 11/01/20 10/31/20 09:00 History AtorvaSTATin 40 mg PO HS 11/01/20 11/01/20 10/31/20 21:00 History Benadryl 25 mg PO HS 11/01/20 11/01/20 10/31/20 21:00 History Diclofenac 1 TRANSDERMA QID 11/01/20 10/31/20 19:00 History Fluticasone Propionate 1 spray INTRANASAL DAILY 11/01/20 11/01/20 10/31/20 09:00 History Vitamin D3 2,000 units 11/01/20 10/31/20 09:00 History carvediloL 12.5 mg PO DAILY 11/01/20 11/01/20 10/31/20 09:00 History hydrALAZINE 100 mg PO TID 11/01/20 11/01/20 10/31/20 19:00 History Active Medications: Generic Name Dose Route Start Last Admin Trade Name Freq PRN Reason Stop Dose Admin Acetaminophen 650 mg 12/31/20 15:30 01/21/21 05:28 Acetaminophen 650 Mg Rect Supp PA 650 mg Q6H PRN Administration Non Cardiac Pain or Temp>100.5 Clonidine HCl 0.2 mg 01/11/21 10:00 01/18/21 10:11 Clonidine Tts 0.2 Mg/24 Hr Patch TD 0.2 mg We THOMAS Administration Dextrose 50 ml 01/14/21 17:59 01/18/21 15:10 Dextrose 50% In Water (25gm) 50 Ml Syringe IV 20 ml Q30MIN PRN Administration Hypoglycemia Protocol Digoxin 0.125 mg 01/09/21 12:00 01/23/21 15:19 Digoxin 0.5 Mg/2 Ml Inj IV 0.125 mg Q48H THOMAS Administration Diphenhydramine HCl 50 mg 01/20/21 10:10 01/24/21 02:21 Diphenhydramine 50 Mg/Ml Vial IV 50 mg Q6H PRN Administration Itching Famotidine 10 mg 12/24/20 13:00 01/24/21 10:01 Famotidine 20 Mg/2 Ml Inj IV 10 mg BID THOMAS Administration Haloperidol Lactate 5 mg 12/29/20 14:16 01/22/21 23:56 Haloperidol Lactate 5 Mg/1 Ml Inj IV 5 mg Q12H PRN Administration Agitation Heparin Sodium (Porcine) 5,000 unit 12/24/20 10:00 01/24/21 10:01 Heparin 5,000 Unit/1 Ml Vial SUB-Q 5,000 unit Q12HR THOMAS Administration Hydralazine HCl 10 mg 01/10/21 14:00 01/24/21 12:45 Hydralazine 20 Mg/1 Ml Inj IV 10 mg Q4HR THOMAS Administration Hydromorphone HCl 0.25 mg 01/09/21 10:53 01/24/21 10:00 Hydromorphone 1 Mg/1 Ml Inj IV 0.25 mg Q6H PRN Administration Pain , Severe (7-10) Hydrophilic Ointment 1 applic 12/31/20 06:39 01/11/21 21:28 Lip Therapy Vaseline TP 1 applic Q2HR PRN Administration Dry Lips Piperacillin Sod/Tazobactam Sod 2.25 gm in 50 mls @ 100 mls/hr 01/13/21 12:00 01/24/21 12:26 Zosyn/Ns 2.25 Gm/50ml IV 01/24/21 20:29 100 mls/hr Q8H THOMAS Administration Protocol Sodium Chloride 100 mls @ 999 mls/hr 01/19/21 09:30 Nacl 0.9% IV RY[place] PRN Hypotension Octreotide Acetate 100 mcg/ 101 mls @ 200 mls/hr 01/21/21 15:00 01/24/21 14:4 6 Sodium Chloride IV 200 mls/hr Q8H THOMAS Administration Amino Acids/Electrolytes/Dextrose 2,016 mls @ 84 mls/hr 01/23/21 20:00 01/23/21 20:23 Tpn Adult IV 01/24/21 19:59 84 mls/hr [email or web address] Administration Protocol Amino Acids/Electrolytes/Dextrose 2,016 mls @ 84 mls/hr 01/24/21 20:00 Tpn Adult IV 01/25/21 19:59 [email or web address] Protocol Insulin Glargine 5 units 01/18/21 22:00 01/23/21 21:03 Insulin Glargine 100 Units/Ml SUB-Q 5 units QHS THOMAS Administration Insulin Human Lispro 0 unit 01/03/21 12:00 01/24/21 12:11 Insulin Lispro 100 Unit/Ml SUB-Q Not Given Q6HR [facility] Protocol Metoprolol Tartrate 5 mg 12/30/20 12:00 01/24/21 12:46 Metoprolol Tartrate 5 Mg/5 Ml Inj IV 5 mg Q4HR THOMAS Administration Multi-Ingred Cream/Lotion/Oil/Oint 1 applic 12/31/20 06:39 Mineral Oil/Petrolatum, White Ophth Oint 3.5 Gm OU Q4HR PRN Dry Eye(s) Scopolamine 1 each 01/15/21 11:00 01/24/21 10:01 Scopolamine Transdermal Patch 72 Hr TD 1 each Q3D THOMAS Administration Sodium Chloride 10 ml 12/22/20 22:00 01/24/21 10:02 Sodium Chloride 0.9% 10 Ml Flush Syringe IV 10 ml BID THOMAS Administration Sodium Chloride 10 ml 12/22/20 19:42 01/09/21 17:27 Sodium Chloride 0.9% 10 Ml Flush Syringe IV 10 ml PRN PRN Administration LINE FLUSH
[2021-01-24] MEDS ORDERED: TOTAL PARENTERAL NUTRITION 2,016 ML IV SCH (20:00)
[2021-01-24] MEDS: INSULIN GLARGINE 100 UNITS/ML SUB-Q SCH (22:17)
[2021-01-25] MEDS: INSULIN LISPRO 100 UNIT/ML SUB-Q SCH ×4 (01:05→18:44)
[2021-01-25] MEDS: hydrALAZINE 20 MG/1 ML INJ IV SCH ×6 (01:20→21:33)
[2021-01-25] MEDS: METOPROLOL TARTRATE 5 MG/5 ML INJ IV SCH ×6 (01:21→21:33)
[2021-01-25] MEDS: OCTREOTIDE 100 MCG in SODIUM CHLORIDE 0.9% 100 ML IV SCH ×3 (06:08→22:08)
[2021-01-25 06:48] LABS: Calcium 6.7 mg/dL (8.4-10.2)
[2021-01-25 09:10] LABS: Calcium 8.7 mg/dL (8.4-10.2)
[2021-01-25] MEDS: cloNIDine TTS 0.2 MG/24 HR PATCH TD SCH (09:42)
[2021-01-25] MEDS: HEPARIN 5,000 UNIT/1 ML VIAL SUB-Q SCH ×2 (09:43→21:35)
[2021-01-25] MEDS: FAMOTIDINE 20 MG/2 ML INJ IV SCH ×2 (09:43→21:34)
--- NOTE | 2021-01-25 10:58 | Progress Note ---
Assessment and Plan Cultures: 12/22/2020 blood culture: Streptococcus bovis, Prevotella 12/22/2020 PD fluid culture: No growth 12/24/2020 tracheal aspirate culture: No growth 12/24/2020 blood culture: No growth 12/31/2020 sputum culture: No growth A/P: 60-year-old male with ESRD on PD, Crohn's disease, CHF, gastroesophageal reflux disease was admitted to the hospital with complaints of abdominal pain and fever: #Severe sepsis with shock: improved. Secondary to small bowel obstruction/necrotic bowel with associated peritonitis. Status post exploratory laparotomy on 12/23/2020 with extensive lysis, primary anastomosis, found to have necrotic segment of small bowel. #Small bowel obstruction/necrotic bowel: with concern for PD associated peritonitis: Nephrology and general surgery following. Status post exploratory laparotomy on 12/23/2020 with extensive lysis, primary anastomosis, found to have necrotic segment of small bowel. PD catheter remains in place. S/p ex lap, resection of perforated anastamosis, washout and abthera wound vac placement on 01/01. Repeat CT abdomen showed no new abscesses, noted small free fluid. S/p Exploratory laparotomy, Right hemicolectomy, Peritoneal lavage, Partial omentectomy, ABThera wound VAC placement on 01/03/2021. Complicated intra- abdominal situation per d/w Dr. Sanchez, plan to continue IV abx for now, has limited surgical options at this time. #Streptococcus bovis bacteremia and Prevotella bacteremia: secondary to above. TTE without obvious vegetations. Repeat blood cultures negative. #ESRD: Renally dose antibiotics. Used to be on PD. On HD. #Acute respiratory failure: improved. Recs: -completed abx 01/24/2021 Yesika Denny MD, FACP [facility] ([facility]) O: [phone] F: [phone] Subjective Date of service: 01/25/21 Principal diagnosis: Ac hypoxemic resp failure; Severe Sepsis; Peritonitis; Acute SBO; ESRD; CHF Interval history: No fever today. Denies any complaints. NG +. Lying in bed. Objective - Exam Narrative Exam: Physical Exam: Constitutional: awake alert, calm Head, Ears, Nose: Normocephalic, atraumatic. External ears, nose normal. NG + Eyes: Conjunctivae/corneas clear. No icterus. No ptosis. Neck: supple Cardiovascular: S1, S2 + Respiratory: AE fair bilaterally GI: VAC +, bowel sounds +, drain + Musculoskeletal: No pedal edema, no cyanosis. Skin: No rash or abscess Hem/Lymphatic: No palpable cervical or supraclavicular nodes. No lymphangitis Psych: calm, no agitation Neurological: awake, alert, oriented. - Constitutional Vitals: Vital Signs Temp Pulse Resp BP Pulse Ox 98.8 F 74 17 172/86 90 01/25/21 08:00 01/25/21 10:00 01/25/21 10:00 01/25/21 10:00 01/25/21 10:00 Temperature -Last 24 Hours Temperature 98.8 F Temperature 99.0 F Temperature 99.5 F Temperature 99.9 F Temperature 99 F Temperature 99.2 F - Labs CBC & Chem 7: 01/20/21 03:35 01/25/21 08:35 Labs: Abnormal lab results 01/24/21 01/24/21 01/24/21 Range/Units 12:03 17:07 23:55 Sodium (137-145) mmol/L Chloride (98-107) mmol/L Carbon Dioxide (22-30) mmol/L BUN (9-20) mg/dL Creatinine (0.8-1.3) mg/dL Glucose (75-100) mg/dL POC Glucose 136 H 122 H 112 H (70-105) mg/dL Calcium (8.4-10.2) mg/dL 01/25/21 01/25/21 01/25/21 Range/Units 05:15 06:00 07:47 Sodium 116 L* D (137-145) mmol/L Chloride 79.1 L (98-107) mmol/L Carbon Dioxide 17 L D (22-30) mmol/L BUN 72 H (9-20) mg/dL Creatinine 7.4 H (0.8-1.3) mg/dL Glucose 2242 H* (75-100) mg/dL POC Glucose 117 H 138 H (70-105) mg/dL Calcium 6.7 L D (8.4-10.2) mg/dL 01/25/21 Range/Units 08:35 Sodium (137-145) mmol/L Chloride 97.0 L (98-107) mmol/L Carbon Dioxide (22-30) mmol/L BUN 92 H (9-20) mg/dL Creatinine 11.0 H (0.8-1.3) mg/dL Glucose 125 H (75-100) mg/dL POC Glucose (70-105) mg/dL Calcium (8.4-10.2) mg/dL
[2021-01-25] MEDS: DIGOXIN 0.5 MG/2 ML INJ IV SCH (11:35)
--- NOTE | 2021-01-25 11:55 | Progress Note ---
<CJ REINA - Last Filed: 01/25/21 11:54> Assessment and Plan Paroxysmal atrial fibrillation currently, he is sinus rhythm on telemetry Hx of nonischemic cardiomyopathy, resolving LVEF 50-55% by echo this presentation Small bowl obstruction status post emergency exploratory laparotomy for anastomotic leak status post exploratory laparotomy s/p ex lap, resection of perforated anastamosis, washout and abthera wound vac placement ESRD now on HD Anemia s/p PRBCs Patient remains on NPO status. Will continue intravenous digoxin, and intravenous metoprolol for paroxysmal atrial fibrillation. Patient is not a candidate for anticoagulation at this time due to his postoperative status and the presence of severe anemia. Otherwise, conservative cardiac management. Subjective Date of service: 01/25/21 Principal diagnosis: Ac hypoxemic resp failure; Severe Sepsis; Peritonitis; Acute SBO; ESRD; CHF Interval history: Patient is resting in bed and appears comfortable. Sinus rhythm on telemetry. Objective Vital Signs Temp Pulse Pulse Resp BP Pulse Ox 01/25/21 11:35 81 155/73 01/25/21 10:00 74 17 172/86 90 01/25/21 09:43 80 173/82 01/25/21 09:42 83 173/82 01/25/21 08:00 98.8 F 88 88 14 168/76 96 01/25/21 06:08 88 170/86 01/25/21 06:00 103 H 26 H 170/86 95 01/25/21 04:00 80 14 178/82 93 01/25/21 03:39 99.0 F 01/25/21 02:00 80 15 157/67 01/25/21 01:21 88 161/73 01/25/21 01:20 88 161/73 01/25/21 00:00 99.5 F 79 81 19 155/70 91 01/24/21 22:08 87 18 170/78 92 01/24/21 22:00 89 17 173/73 93 01/24/21 20:00 81 79 17 178/89 95 01/24/21 19:53 99.9 F H 01/24/21 18:00 77 17 162/70 97 01/24/21 16:00 99 F 70 67 17 129/64 95 01/24/21 14:00 75 14 147/73 94 01/24/21 12:00 99.2 F 73 67 17 143/51 96 - Physical Examination General: No Apparent Distress HEENT: Positive: PERRL Neck: Positive: neck supple Cardiac: Positive: Reg Rate and Rhythm Lungs: Positive: Decreased Breath Sounds Abdomen: Positive: Other (post op) Extremities: Absent: edema - Labs and Meds Comprehensive Metabolic Panel 01/25/21 01/25/21 Range/Units 06:00 08:35 Sodium 116 L* D 137 D (137-145) mmol/L Potassium 4.3 D 3.7 (3.6-5.0) mmol/L Chloride 79.1 L 97.0 L (98-107) mmol/L Carbon Dioxide 17 L D 23 (22-30) mmol/L BUN 72 H 92 H (9-20) mg/dL Creatinine 7.4 H 11.0 H (0.8-1.3) mg/dL Glucose 2242 H* 125 H (75-100) mg/dL Calcium 6.7 L D 8.7 D (8.4-10.2) mg/dL - Allied health notes Allied health notes reviewed: nursing <COLTON PONCE - Last Filed: 01/31/21 17:09> Assessment and Plan - Patient Problems (1) Atrial fibrillation Current Visit: Yes Status: Acute (2) Accelerated hypertension Current Visit: No Status: Acute Subjective Interval history: I SAW THIS PT & AGREE WITH THE Dx & Tx PLAN. Objective Vital Signs Temp Pulse Resp Resp BP BP Pulse Ox 01/31/21 16:31 98.3 F 73 16 163/87 98 01/31/21 15:28 73 162/79 01/31/21 14:02 73 162/79 01/31/21 11:56 73 162/79 01/31/21 11:46 98.6 F 68 16 160/82 100 01/31/21 10:58 73 162/79 01/31/21 06:57 73 162/79 01/31/21 06:56 82 176/89 01/31/21 05:13 99 F 71 18 146/89 94 01/31/21 04:00 74 01/31/21 03:44 17 01/31/21 03:35 17 01/31/21 02:07 17 01/31/21 01:45 69 153/74 01/31/21 01:44 71 168/73 01/31/21 01:37 17 01/31/21 01:10 98.9 F 72 18 157/85 98 01/31/21 00:00 72 17 01/30/21 22:30 67 161/80 01/30/21 22:27 67 161/80 01/30/21 19:40 98.8 F 68 18 172/90 94 01/30/21 19:03 17 01/30/21 18:37 72 163/86 01/30/21 18:33 72 163/86 01/30/21 18:27 97.6 F 70 16 163/86 97 01/30/21 18:00 17
--- NOTE | 2021-01-25 12:20 | Progress Note ---
Assessment and Plan Assessment and plan: This is a 60 YO Male with ESRD on PD, GERD, Crohn's Disease, Nicotine Dependence, HTN, Systolic CHF(EF 35%) who presented to the emergency department on 12/22 with complaints of abdominal pain which began shortly after eating fast food rated 10/10 which is periumbilical, constant, associated with fever, nausea and multiple sites of vomiting and self-reported inability to undergo PD. In the emergency room patient underwent a CT scan of the abdomen/pelvis which revealed evidence of partial small bowel obstruction, symptoms were consistent with bacterial peritonitis. Patient was admitted to the hospital service with sepsis, peritonitis, and small bowel obstruction with consults to general surgery, nephrology, infectious disease and [facility]. 12/23. Patient had temperature 101.2 F, tachycardia and elevated lactic acid on admission. Meet sepsis criteria. Started on IV antibiotics. ID has been c onsulted. Surgery consulted this a.m.-advised laparoscopy. He remains on NG tube connected to suction. 12/24. Patient was noted to have peritonitis yesterday and patient undergoing exploratory laparotomy. Patient remained intubated after procedure and is in ICU. Now on broad-spectrum antibiotics. ID on board. 12/25. Remains mechanically ventilated and sedated. Temp 103 Fahrenheit. Antibiotics broadened-ID added fluconazole and Flagyl. Blood cultures ordered. Plan to repeat CT abdomen tomorrow if not better. Surgery following. 12/26: Patient remains on mechanical ventilation on CMV tidal line 550, rate of 14, PEEP of 8 and 30% FiO2 and sedated on fentanyl 4 micrograms. Today we will remove his Jeffery and CCM dropped his rate controlled him on CPAP. We will trend CBC given recent drop in H/H. 12/27: Patient remains intubated on CMV tidal volume 550, rate 12, PEEP 8 on 30% FiO2 at the time my examination. Patient's TPN will be changed to PPN. Patient's fentanyl drip will be changed to IV push fentanyl and have a permacath placed today and midline. Patient was placed on a spontaneous breathing trial was switched back to CMV prior to procedure. 12/28: Patient on fentanyl but awake and follows commands. At the time of my examination he was on a CPAP trial and is scheduled to receive HD today. s/o permacath and PICC placement with vascular yesterday. His blood culture grew Prevotella and addition to Streptococcus bovis. This evening Dr. Spicer attempted to extubate the patient and his heart rate went to the 180s. Stat EKG obtained and cardiology consulted. 12/29: Patient was started on amiodarone IV for A. fib RVR yesterday and today he is more rate controlled into the 70s and 80s. Patient was extubated yesterday and is currently on Ventimask. Patient will be transferred to [facility]. Patient continues to be n.p.o. with TPN and NG tube to LIS. He is hypokalemic today which was repleted. 12/30; patient was on IV amiodarone for treatment with RVR, rate is controlled. Patient was off oxygen. patient is n.p.o. and on TPN. Surgery is following the patient. 12/31: Patient was intubated overnight for respiratory distress and this morning on examination he was on assist control tidal volume 450, rate 20, PEEP 6, 100% FiO2 and RT was getting a ABG to adjust vent settings. Patient had a acute bump in WBC and per ID recommendations we will obtain a CT abdomen/pelvis if leukocytosis persist. Patient is on TPN and sedated with Levophed. Patient is also on vasopressor support with Levophed. Per surgery his ileus is resolving however will maintain OGT to LIWS. 01/01: Patient was started on a vasopressin yesterday late evening. This morning patient is on 20 mcg of Levophed and 0.03 vasopressin and sedated on 20 mcg of propofol. Patient WBC increased today and he is hypokalemic. We will treat hyperkalemia. Patient had a CT chest and abdomen/pelvis pending. The time examination total of 450, rate 20, PEEP of 6 and 35 percent FiO2. Per RN, Dr Pollock has stated that the patient will be returning to the OR today for likely anastomosis seen on CT abdomen/pelvis. 01/02: Patient noted, WBC improving, but noted to have anemia, will transfuse additional unit of Blood and repeat H/H. continue supportive care. 01/03: Continue to wean pressors, ABX PER ID, patient to return to OR today for washout and possible closure, CONTINUE TPN 01/04: Continues to show some improvement. Today is POD#12 s/p ex lap with extensive lysis of adhesions and two small bowel resections with primary anastamosis for SBO with necrotic segment small bowel. POD#3 s/p ex lap, resection of perforated anastamosis, washout and abthera wound vac placement. POD#1 s/p ex lap with right hemicolectomy. Surgery planning to take back to the OR on Saturday with the hope to anastamos ileum to transverse colon and close abdomen. keep NGT to suction. Pt in deep sedation due to open abdomen. Per ID - Continue IV Zosyn, renally dosed for Strep bacteremia treatment till 01/06/2021 -On TPN 01/05: Patient continues on HD, anticipate return to OR tomorrow for closure and anastemosis. Continues with deep sedation due to open abdomen 01/06: Continue supportive care, monitor pressures and electrolytes. He is post op Exploratory laparotomy, 2. Jejunal colonic anastomosis,3. Segmental small bowel resection and anastemosis closure today. Continue wound vac 01/07: Continue supportive care, Today is POD#15 s/p ex lap with extensive lysis of adhesions and two small bowel resections with primary anastamosis for SBO with necrotic segment small bowel. POD#6 s/p ex lap, resection of perforated anastamosis, washout and abthera wound vac placement. POD#4 s/p ex lap with right hemicolectomy. POD #1 exploratory laparotomy, 2. Jejunal colonic anastomosis,3. Segmental small bowel resection. Continue to monitor and correct electrolytes. Patient remains on fentanyl and TPN with lipids. Still hypoactive bowel sounds. 16: Patient now extubated, asked when he can go home, Still lethargic. Continue wound management, wound vac, Will need Rehab eval prior to discharge. 01/09: Patient remains on TPN, was started on labetalol drip per cardiology, africa dueñas had uncontrolled hypertension today however he cannot be given p.o. medications ileus resolves per surgery. Patient received hemodialysis today. NG tube remains to low intermittent suction. 01/10: Patient has some leukocytosis, slight hypokalemia and hyponatremia, metabolic acidosis. NG tube to LIWS, continue TPN. Patient will be downgraded to IMCU today. [facility] is working on placement. Will change frequency of hydralazine and discontinue labetalol drip. We will obtain a.m. BMP/mag/Phos and CBC. Infectious disease will like to start Zosyn if leukocytosis continues to worsen. 01/11: Patient leukocytosis has slightly improved potassium with in normal limits and other electrolytes are elevated but patient is scheduled for HD today. Remains on RA and A,A,Ox4. BP better controlled but remains elevated and we will increase clonidine dose. 01/12/2021; patient's blood pressure is better after dialysis and as needed IV medications and clonidine patch. Patient is followed by general surgery. Patient was alert and oriented and asked when he is going home. 01/13: Surgery is concerned about a leak at his anastamosis given increased output and will treat as controlled fistula and start an octreotide drip. And per surgery if he requires operative intervention will likely need to be left in discontinuity and eventual ileostomy as he has already failed two anastamoses. Patient still has tongue swelling and slurred speech. He is on Benadryl. 01/14: Patient's tongue swelling is improved, patient is alert and oriented, CAM ICU negative. Continue NG tube to low wall intermittent suction. Leukocytosis is improving. Hypomagnesemia resolved. Epogen with HD 01/15: Patient tongue swelling is much improved, bladder scan completed by bedside RN and he needed to be straight cathed. NGT output decreased. Leukocytosis improving. Patient has been having episodes of hypoglycemia during the day and he is on cyclic TPN, Lantus rescheduled to nightly and dosage decreased. 01/16: Continue management per ID and surgery. Will defer repeat CT of the abdomen to the team surgery has been approved by nephrology. Continue current diet and advance all to ice if okay with surgery discussed with nursing staff. 01/17: Discussed surgical recommendation of strict n.p.o. except for small amount of ice as patient has already failed to anastomosis. And risk for additional surgery with tissues were extremely friable from previous scar. He continues on octreotide drip to slow down GI output HARIS drain remains in place with NG suction for decompression. Patient verbalized understanding although stressed about being discharged. We will continue IMCU care unless otherwise advised by david andersen. Prognosis remains guarded continue to monitor electrolytes considering GI output. 01/18: Continue supportive care, BP mildly elevated, continue to monitor, continue current therapy, if no return to PO soon may consider Increasing clonidine to 0.3, PO when ok with surgery. 01/19:Continue supportive care, Per ID continue IV Zosyn, plan to stop at 3 weeks from last surgery end date: 01/24/2021. Other management per surgery. Continue TPN. 01/20: Discussed with Surgery, will continue current management. Advised patient of the findings and plan. 01/21: Continue supportive care. Continue management per surgery advance diet when okay with surgery. Plan of care discussed with the patient in detail. 01/22: NG tube to be replaced explained to the patient why this is important. I agree with PT OT discussed with nursing staff very important to let the PT team know that they should manage HARIS drain while patient is ambulating so that he does not come out. Continue current management. Change in ocreotide to q8h and d/c drip NOTED 01/23: Continue supportive care, HD today, counselling provided to the patient on compliance with medical management 01/24: Replace NGT, Continue management per Surgery. POD 32. Mild hypokalemia noted, will replace. 01/25: Brief summary patient is a 60-year-old male admitted with abdominal pain and noted to have necrotic bowel concerning for PD associated peritonitis. Catheter was placed to convert to HD. Patient also underwent multiple surgical interventions. Initial cultures showed Streptococcus bovis bacteremia and Prevotella bacteremia a COLIN was without vegetations repeat blood cultures have been negative. Part of the surgery is included ex lap, resection of perforated anastomosis, washout and a better wound VAC placement on 01/01. While progress has remained slow if has indeed shown some improvement. Patient is agitated about being in the hospital but understands the care management been provided his vital to his health and to prevent further surgeries. The NG tube has been pulled out 2 days ago he vehemently refused the tube being placed back but after a day of nausea with associated vomiting he was accepting of the chest tube to put back. He continues on TPN. We will continue to monitor electrolytes and correct as needed. This a.m. and erroneous blood was obtained likely from the same line as TPN repeat was done which showed normalizing factors. Patient completed antibiotics on 01/25/2020 . Severe Sepsis with shock Streptococcus bovis bacteremia/Prevotella bacteremia Gwendolyn albicans tracheal aspirate Small bowel obstruction/necrotic bowel s/p ex lap with extensive lysis of adhesions, 2 small bowel resections with primary anastomosis, right hemicolectomy, jejunal colonic anastomosis, segmental small bowel resection Postoperative ileus Atrial fibrillation with RVR Leukocytosis Hypochloremia Gwendolyn albicans in tracheal aspirate from 12/24 ESRD on PD, PermCath to be placed Transaminitis Systolic CHF(EF 35%) Crohn's disease Hypertension -CCM, surgery, infectious disease, nephrology, vascular surgery, cardiology consulted, appreciate recommendations -12/24 S/p ex lap with extensive expectations, 2 small bowel resections with primary anastomosis with surgery on 12/23 -s/p PICC and Permacath placement with vascular surgery on 12/27 -Extubated on 12/28, reintubated 12/31 for respiratory distress and extubated 01/08 -12/29 echocardiogram shows moderate concentric LVH, small pericardial effusion, transmitral Doppler flow pattern is grade 1 abnormal relaxation pattern, left-ventricular systolic function normal, LVEF 50 to 55%, no wall motion abnormalities. -01/01 CT abdomen/pelvis shows small pericardial effusion, mild coronary artery atherosclerotic calcification, small bilateral pleural effusions with associated volume loss, no convincing evidence of bowel obstruction or inflammation, postoperative changes from interval/recent midline laparotomy with a moderate amount of free fluid throughout the abdomen, small amount of dependent free air presumably postoperative -01/02 s/p ex lap, resection of perforated anastamosis, washout and abthera wound vac placement. -01/04 s/p ex lap with right hemicolectomy. -01/06 s/p exploratory laparotomy, Jejunal colonic anastomosis, Segmental small bowel resection. -s/p Vasopressor support with Levophed and vasopressin -Transitioned to HD from PD -HD per nephro, Epogen with HD -Strict NPO -TPN -Octreotide drip -NGT to LIWS -s/p IV antibiotics -Tobacco abuse cessation counseling -Trend CBC, BMP DVT/GI prophylaxis: PPI, heparin subcu, SCDs to bilateral lower extremities while in bed Disposition: IMCU History Interval history: This is a 60-year-old male with ESRD on peritoneal dialysis, Crohn's, hypertension, systolic CHF (EF 35%) who was admitted with sepsis, peritonitis, small bowel obstruction and now has gram-positive cocci bacteremia. Patient seen and examined, NG tube back in place no further nausea vomiting still thirsty. Hospitalist Physical - Physical exam Narrative exam: General appearance: Present: no acute distress, Dry oropharyngeal area. - EENT Eyes: Present: PERRL ENT: poor dentition - Neck Neck: Absent: masses or JVD, cervical LAD - Respiratory Respiratory effort: normal Respiratory: bilateral: diminished - Cardiovascular Rhythm: irregularly irregular Heart Sounds: Present: S1 & S2. Absent: systolic murmur, diastolic murmur - Extremities Extremities: no ischemia, pulses intact, pulses symmetrical, No edema, normal temperature, normal color Peripheral Pulses: within normal limits - Abdominal General gastrointestinal: Nondistended abdomen dressing, rigid, w HARIS drain in place. Hypoactive bowel sounds. - Integumentary Integumentary: Present: Left chest permacath - Neurologic Neurologic: Awake alert oriented moves extremities, SPEECH IS NORMAL - Allied Health Allied health notes reviewed: nursing - Constitutional Vitals: Temp Pulse Resp BP Pulse Ox 98.8 F 81 17 155/73 90 01/25/21 08:00 01/25/21 11:35 01/25/21 10:00 01/25/21 11:35 01/25/21 10:00 General appearance: Present: no acute distress HEART Score - HEART Score Troponin: Troponin T 0.021 ng/mL (0.00-0.029) 12/22/20 14:38 Results - Labs CBC & Chem 7: 01/20/21 03:35 01/25/21 08:35 Labs: Laboratory Last Values WBC 12.0 K/mm3 (4.5-11.0) H 01/20/21 03:35 RBC 2.62 M/mm3 (3.65-5.03) L 01/20/21 03:35 Hgb 8.3 gm/dl (11.8-15.2) L 01/20/21 03:35 Hct 23.2 % (35.5-45.6) L 01/20/21 03:35 MCV 89 fl (84-94) 01/20/21 03:35 MCH 32 pg (28-32) 01/20/21 03:35 MCHC 36 % (32-34) H 01/20/21 03:35 RDW 15.2 % (13.2-15.2) 01/20/21 03:35 Plt Count 230 K/mm3 (140-440) 01/20/21 03:35 Lymph % (Auto) 4.4 % (13.4-35.0) L 01/13/21 03:45 [place] % (Auto) 10.3 % (0.0-7.3) H 01/13/21 03:45 Eos % (Auto) 0.9 % (0.0-4.3) 01/13/21 03:45 Baso % (Auto) 0.2 % (0.0-1.8) 01/13/21 03:45 Lymph # (Auto) 0.8 K/mm3 (1.2-5.4) L 01/13/21 03:45 [place] # (Auto) 1.8 K/mm3 (0.0-0.8) H 01/13/21 03:45 Eos # (Auto) 0.2 K/mm3 (0.0-0.4) 01/13/21 03:45 Baso # (Auto) 0.0 K/mm3 (0.0-0.1) 01/13/21 03:45 Add Manual Diff Complete 01/10/21 09:26 Total Counted 100 01/10/21 09:26 Seg Neutrophils % 84.2 % (40.0-70.0) H 01/13/21 03:45 Seg Neuts % (Manual) 95.0 % (40.0-70.0) H 01/10/21 09:26 Band Neutrophils % 1.0 % 01/10/21 09:26 Lymphocytes % (Manual) 3.0 % (13.4-35.0) L 01/10/21 09:26 Reactive Lymphs % (Man) 1.0 % 12/29/20 05:16 Monocytes % (Manual) 1.0 % (0.0-7.3) 01/10/21 09:26 Eosinophils % (Manual) 2.0 % (0.0-4.3) 12/29/20 05:16 Metamyelocytes % 2.0 % 12/29/20 05:16 Nucleated RBC % Not Reportable 01/10/21 09:26 Seg Neutrophils # 14.8 K/mm3 (1.8-7.7) H 01/13/21 03:45 Seg Neutrophils # Man 17.3 K/mm3 (1.8-7.7) H 01/10/21 09:26 Band Neutrophils # 0.2 K/mm3 01/10/21 09:26 Lymphocytes # (Manual) 0.5 K/mm3 (1.2-5.4) L 01/10/21 09:26 Abs React Lymphs (Man) 0.0 K/mm3 01/10/21 09:26 Monocytes # (Manual) 0.2 K/mm3 (0.0-0.8) 01/10/21 09:26 Eosinophils # (Manual) 0.0 K/mm3 (0.0-0.4) 01/10/21 09:26 Basophils # (Manual) 0.0 K/mm3 (0.0-0.1) 01/10/21 09:26 Metamyelocytes # 0.0 K/mm3 01/10/21 09:26 Myelocytes # 0.0 K/mm3 01/10/21 09:26 Promyelocytes # 0.0 K/mm3 01/10/21 09:26 Blast Cells # 0.0 K/mm3 01/10/21 09:26 WBC Morphology Not Reportable 01/10/21 09:26 Hypersegmented Neuts Not Reportable 01/10/21 09:26 Hyposegmented Neuts Not Reportable 01/10/21 09:26 Hypogranular Neuts Not Reportable 01/10/21 09:26 Smudge Cells Not Reportable 01/10/21 09:26 Toxic Granulation 1+ 01/10/21 09:26 Toxic Vacuolation Not Reportable 01/10/21 09:26 Dohle Bodies Not Reportable 01/10/21 09:26 Pelger-Huet Anomaly Not Reportable 01/10/21 09:26 Lamar Rods Not Reportable 01/10/21 09:26 Platelet Estimate Consistent w auto 01/10/21 09:26 Clumped Platelets Not Reportable 01/10/21 09:26 Plt Clumps, EDTA Not Reportable 01/10/21 09:26 Large Platelets Not Reportable 01/10/21 09:26 Giant Platelets Not Reportable 01/10/21 09:26 Platelet Satelliting Not Reportable 01/10/21 09:26 Plt Morphology Comment Not Reportable 01/10/21 09:26 RBC Morphology Not Reportable 01/10/21 09:26 Dimorphic RBCs Not Reportable 01/10/21 09:26 Polychromasia Not Reportable 01/10/21 09:26 Hypochromasia Not Reportable 01/10/21 09:26 Poikilocytosis Not Reportable 01/10/21 09:26 Anisocytosis 1+ 05/18/21 09:26 Microcytosis Not Reportable 01/10/21 09:26 Macrocytosis Not Reportable 01/10/21 09:26 Spherocytes Not Reportable 01/10/21 09:26 Pappenheimer Bodies Not Reportable 01/10/21 09:26 Sickle Cells Not Reportable 01/10/21 09:26 Target Cells Not Reportable 01/10/21 09:26 Tear Drop Cells Not Reportable 01/10/21 09:26 Ovalocytes Not Reportable 01/10/21 09:26 Helmet Cells Not Reportable 01/10/21 09:26 [place] Bodies Not Reportable 01/10/21 09:26 [place] Rings Not Reportable 01/10/21 09:26 Jenny Cells Not Reportable 01/10/21 09:26 Bite Cells Not Reportable 01/10/21 09:26 Crenated Cell Not Reportable 01/10/21 09:26 Elliptocytes Not Reportable 01/10/21 09:26 Acanthocytes (Spur) Not Reportable 01/10/21 09:26 Rouleaux Not Reportable 01/10/21 09:26 Hemoglobin C Crystals Not Reportable 01/10/21 09:26 Schistocytes Not Reportable 01/10/21 09:26 Malaria parasites Not Reportable 01/10/21 09:26 Lucas Bodies Not Reportable 01/10/21 09:26 Hem Pathologist Commnt No 01/10/21 09:26 PT 16.9 Sec. (12.2-14.9) H 01/01/21 12:45 INR 1.39 (0.87-1.13) H 01/01/21 12:45 APTT 25.1 Sec. (24.2-36.6) 12/22/20 14:38 ABG pH 7.345 pH Units (7.350-7.450) L 01/07/21 17:14 POC ABG pCO2 41.4 mmHg (32.0-48.0) 01/07/21 03:07 ABG pCO2 40.3 mm Hg 01/07/21 17:14 POC ABG pO2 94.5 mmHg (83-108) 01/07/21 03:07 ABG pO2 67.4 mm Hg (80.0-90.0) L 01/07/21 17:14 POC ABG HCO3 22.7 01/07/21 03:07 ABG HCO3 21.5 mmol/L (20.0-26.0) 01/07/21 17:14 ABG O2 Saturation 94.3 % (95.0-99.0) L 01/07/21 17:14 ABG O2 Content 11.6 (0.0-44) 01/07/21 17:14 POC ABG Base Excess -2.7 01/07/21 03:07 ABG Base Excess -3.9 mmol/L (-2.0-3.0) L 01/07/21 17:14 ABG Hemoglobin 8.9 gm/dl (14.0-18.0) L 01/07/21 17:14 ABG Oxyhemoglobin 96.6 (94-98) 01/07/21 03:07 ABG Carboxyhemoglobin 1.5 % (0.0-5.0) 01/07/21 17:14 ABG Methemoglobin 0.6 % (0.0-1.5) 01/07/21 17:14 ABG Sodium 135.6 mmol/L (136.0-145.0) L 01/07/21 03:07 ABG Potassium 4.0 mmol/L (3.40-4.50) 01/07/21 03:07 ABG Chloride 102.0 mmol/L (98-107) 01/07/21 03:07 ABG Glucose 181 mg/dL (65-95) H 01/07/21 03:07 Oxyhemoglobin 92.3 % (95.0-99.0) L 01/07/21 17:14 Carboxyhemoglobin 0.7 (0.5-1.5) 01/07/21 03:07 FiO2 21 % 01/07/21 17:14 FiO2 % 45.0 01/07/21 03:07 Sodium 137 mmol/L (137-145) D 01/25/21 08:35 Potassium 3.7 mmol/L (3.6-5.0) 01/25/21 08:35 Chloride 97.0 mmol/L (98-107) L 01/25/21 08:35 Carbon Dioxide 23 mmol/L (22-30) 01/25/21 08:35 Anion Gap 21 mmol/L 01/25/21 08:35 BUN 92 mg/dL (9-20) H 01/25/21 08:35 Creatinine 11.0 mg/dL (0.8-1.3) H 01/25/21 08:35 Estimated GFR 6 ml/min 01/25/21 08:35 BUN/Creatinine Ratio 8 % 01/25/21 08:35 Glucose 125 mg/dL (75-100) H 01/25/21 08:35 POC Glucose 138 mg/dL (70-105) H 01/25/21 07:47 Lactic Acid 1.10 mmol/L (0.7-2.0) 01/14/21 05:39 Calcium 8.7 mg/dL (8.4-10.2) D 01/25/21 08:35 Phosphorus 2.60 mg/dL (2.5-4.5) 01/23/21 05:45 Magnesium 1.90 mg/dL (1.7-2.3) 01/24/21 04:45 Total Bilirubin 0.60 mg/dL (0.1-1.2) 01/21/21 04:39 AST 28 units/L (5-40) 01/21/21 04:39 ALT 25 units/L (7-56) 01/21/21 04:39 Alkaline Phosphatase 143 units/L (35-129) H 01/21/21 04:39 Ammonia 30.0 umol/L (25-60) 12/22/20 14:38 Troponin T 0.021 ng/mL (0.00-0.029) 12/22/20 14:38 Total Protein 6.1 g/dL (6.3-8.2) L 01/21/21 04:39 Albumin 3.0 g/dL (3.9-5) L 01/21/21 04:39 Albumin/Globulin Ratio 1.0 % 01/21/21 04:39 Triglycerides 73 mg/dL (2-149) 01/18/21 04:19 Lipase 41 units/L (13-60) 12/22/20 14:38 Procalcitonin > 200.00 ng/mL (<0.15) 12/24/20 15:06 TSH 1.470 mlU/mL (0.270-4.200) 12/28/20 19:44 Arterial Blood Glucose 181 mg/dL (65-95) H 01/07/21 03:07 Arterial Blood Ionized Calcium 4.3 mg/dL (4.6-5.3) L 01/07/21 03:07 Urine Color Yellow (Yellow) 12/22/20 18:53 Urine Turbidity Clear (Clear) 12/22/20 18:53 Urine pH 7.0 (5.0-7.0) 12/22/20 18:53 Ur Specific [place] 1.012 (1.003-1.030) 12/22/20 18:53 Urine Protein >500 mg/dL (Negative) 12/22/20 18:53 Urine Glucose (UA) Neg mg/dL (Negative) 12/22/20 18:53 Urine Ketones Neg mg/dL (Negative) 12/22/20 18:53 Urine Blood Neg (Negative) 12/22/20 18:53 Urine Nitrite Neg (Negative) 12/22/20 18:53 Urine Bilirubin Neg (Negative) 12/22/20 18:53 Urine Urobilinogen < 2.0 mg/dL (<2.0) 12/22/20 18:53 Ur Leukocyte Esterase Neg (Negative) 12/22/20 18:53 Urine WBC (Auto) < 1.0 /HPF (0.0-6.0) 12/22/20 18:53 Urine RBC (Auto) 1.0 /HPF (0.0-6.0) 12/22/20 18:53 Fluid Type Dialysate 12/22/20 Unknown Fluid Color Colorless 12/22/20 Unknown Fluid Appearance Cloudy 12/22/20 Unknown Fluid WBC 208 /mm3 12/22/20 Unknown Fluid RBC 45 /mm3 12/22/20 Unknown Fluid Seg Neutrophils 82.0 % 12/22/20 Unknown Fluid Lymphocytes 11.0 % 12/22/20 Unknown Fluid Reactive Lymphs 0 % 12/22/20 Unknown Fluid Monocytes 7.0 % 12/22/20 Unknown Fluid Eosinophils 0 % 12/22/20 Unknown Fluid Basophils 0 % 12/22/20 Unknown Random Vancomycin 13.7 ug/mL (0-40.0) 12/26/20 Unknown Digoxin 0.8 ng/mL (0.9-2.0) L 01/11/21 05:18 Hepatitis A IgM Ab Non-reactive (NonReactive) 12/23/20 11:38 Hep Bs Antigen Non-reactive (Negative) 12/23/20 11:38 Hep B Core IgM Ab Non-reactive (NonReactive) 12/23/20 11:38 Hepatitis C Antibody Non-reactive (NonReactive) 12/23/20 11:38 Blood Type A POSITIVE 01/06/21 07:10 Antibody Screen Negative 01/06/21 07:10 Crossmatch See Detail 01/06/21 07:10 Jeffery/IV: Voiding Method Self-Catheterization Active Medications - Current Medications Current Medications: Generic Name Dose Route Start Last Admin Trade Name Freq PRN Reason Stop Dose Admin Acetaminophen 650 mg 12/31/20 15:30 01/21/21 05:28 Acetaminophen 650 Mg Rect Supp RI 650 mg Q6H PRN Administration Non Cardiac Pain or Temp>100.5 Clonidine HCl 0.2 mg 01/11/21 10:00 01/25/21 09:42 Clonidine Tts 0.2 Mg/24 Hr Patch TD 0.2 mg We THOMAS Administration Dextrose 50 ml 01/14/21 17:59 01/18/21 15:10 Dextrose 50% In Water (25gm) 50 Ml Syringe IV 20 ml Q30MIN PRN Administration Hypoglycemia Protocol Digoxin 0.125 mg 01/09/21 12:00 01/25/21 11:35 Digoxin 0.5 Mg/2 Ml Inj IV 0.125 mg Q48H THOMAS Administration Diphenhydramine HCl 50 mg 01/20/21 10:10 01/24/21 02:21 Diphenhydramine 50 Mg/Ml Vial IV 50 mg Q6H PRN Administration Itching Famotidine 10 mg 12/24/20 13:00 01/25/21 09:43 Famotidine 20 Mg/2 Ml Inj IV 10 mg BID THOMAS Administration Haloperidol Lactate 5 mg 12/29/20 14:16 01/22/21 23:56 Haloperidol Lactate 5 Mg/1 Ml Inj IV 5 mg Q12H PRN Administration Agitation Heparin Sodium (Porcine) 5,000 unit 12/24/20 10:00 01/25/21 09:43 Heparin 5,000 Unit/1 Ml Vial SUB-Q 5,000 unit Q12HR THOMAS Administration Hydralazine HCl 10 mg 01/10/21 14:00 01/25/21 09:43 Hydralazine 20 Mg/1 Ml Inj IV 10 mg Q4HR THOMAS Administration Hydromorphone HCl 0.25 mg 01/09/21 10:53 01/24/21 10:00 Hydromorphone 1 Mg/1 Ml Inj IV 0.25 mg Q6H PRN Administration Pain , Severe (7-10) Hydrophilic Ointment 1 applic 12/31/20 06:39 01/11/21 21:28 Lip Therapy Vaseline TP 1 applic Q2HR PRN Administration Dry Lips Sodium Chloride 100 mls @ 999 mls/hr 01/19/21 09:30 Nacl 0.9% IV [place] PRN Hypotension Octreotide Acetate 100 mcg/ 101 mls @ 200 mls/hr 01/21/21 15:00 01/25/21 06:08 Sodium Chloride IV 200 mls/hr Q8H [facility] Administration Amino Acids/Electrolytes/Dextrose 2,016 mls @ 84 mls/hr 01/24/21 20:00 01/24/21 20:32 Tpn Adult IV 01/25/21 19:59 84 mls/hr [email or web address] [facility] Administration Protocol Amino Acids/Electrolytes/Dextrose 2,016 mls @ 84 mls/hr 01/25/21 20:00 Tpn Adult IV 01/26/21 19:59 [email or web address]@[email or web address] [facility] Protocol Fat Emulsion Intravenous 250 mls @ 21 mls/hr 01/25/21 20:00 Intralipid 20% IV 01/26/21 08:00 DAILY@[email or web address] [facility] Insulin Glargine 5 units 01/18/21 22:00 01/24/21 22:17 Insulin Glargine 100 Units/Ml SUB-Q 5 units QHS [facility] Administration Insulin Human Lispro 0 unit 01/03/21 12:00 01/25/21 06:08 Insulin Lispro 100 Unit/Ml SUB-Q Not Given Q6HR [facility] Protocol Metoprolol Tartrate 5 mg 12/30/20 12:00 01/25/21 09:43 Metoprolol Tartrate 5 Mg/5 Ml Inj IV 5 mg Q4HR [facility] Administration Multi-Ingred Cream/Lotion/Oil/Oint 1 applic 12/31/20 06:39 Mineral Oil/Petrolatum, White Ophth Oint 3.5 Gm OU Q4HR PRN Dry Eye(s) Ondansetron HCl 4 mg 01/25/21 11:56 Ondansetron 4 Mg/2 Ml Inj IV Q4H PRN Nausea And Vomiting Scopolamine 1 each 05/23/21 11:00 01/24/21 10:01 Scopolamine Transdermal Patch 72 Hr TD 1 each Q3D THOMAS Administration Sodium Chloride 10 ml 12/22/20 22:00 01/25/21 09:44 Sodium Chloride 0.9% 10 Ml Flush Syringe IV 10 ml BID THOMAS Administration Sodium Chloride 10 ml 12/22/20 19:42 01/09/21 17:27 Sodium Chloride 0.9% 10 Ml Flush Syringe IV 10 ml PRN PRN Administration LINE FLUSH Nutrition/Malnutrition Assess - Dietary Evaluation Nutrition/Malnutrition Findings: Nutrition Notes Start: 12/24/20 12:36 Freq: Status: Active Protocol: Document 01/25/21 08:13 JUAN (Rec: 01/25/21 08:18 [id number]) Nutrition Notes Initial or Follow up Reassessment Current Diagnosis CKD (stage V CKD),Sepsis, Hypertension,Heart Failure, Small Bowel Obstruction Other Pertinent Diagnosis Peritonitis, SBO s/p resection Current Diet CPN at 84 ml/hr Labs/Tests Reviewed Pertinent Medications 01/24: K 20 mEq Height 5 ft 7 in Weight 80 kg [place] Body Weight (kg) 67.27 BMI 27.6 Weight Status Overweight Subjective/Other Information TPN day 31. No changes. Pt reports wanting to eat. He reports he has been throwing up medications. Percent of energy/protein needs met: 100%/100% Burn Absent Trauma Absent Current % PO Negligible Minimum of two criteria No #2 Nutrition Diagnosis Increased nutrient needs ( specify in comment below) Diagnosis Progress(for reassessment Continues documentation) #1 Nutrition Diagnosis Inadequate oral intake Diagnosis Progress(for reassessment Continues documentation) Is patient on ventilator? No Is Patient Ambulatory and/or Out of Bed No REE-([facility]-confined to bed) 1875.348 Kcal/Kg value to use for calculation 21 Approximate Energy Requirements Using 1680 kcal/Kg Calculation Used for Recommendations Kcal/kg Additional Notes Pro needs: 101-121 g/day (1.25 -1.5 g/kg AdjBW, 81kg) Fluid needs per MD. Nutrition Intervention Change Diet Order: Continue CPN Nutrition Support: Continous CPN at 84 ml/hr: MVI, lipids Kcal 2,174 Protein (gm) 121 Carbohydrates (gm) 350 Fat (gm) 50 Fluid (mL) 2,266 Fiber (gm) 0 Goal #1 Meet at least 75% of estimated energy and protein needs via CPN Anticipated Discharge Needs: continuous TPN at 84ml/hr Follow-Up By: 01/26/21 Additional Comments Labs in AM: KAREN Mg
--- NOTE | 2021-01-25 12:50 | Progress Note ---
Assessment and Plan POD#32 s/p ex lap with extensive lysis of adhesions and two small bowel resections with primary anastamosis for SBO with necrotic segment small bowel. POD#23 s/p ex lap, resection of perforated anastamosis, washout and abthera wound vac placement. POD#21 s/p ex lap with right hemicolectomy. POD#19 s/p ex lap, with jejunal-colonic anastamosis and closure of abdomen. Afebrile and stable. - concerned about a leak at his anastamosis. Clinically improved with decreased output that is becoming more serous. Blood supply was evaluated at time of last surgery with ICG and found to be adequate. Pt was on several days of steroids for tongue swelling which may have contributed to leak. Currently since he is stable and afebrile will treat like controlled fistua. He is extremely high risk for additional surgery with tissues that are extremely friable and previous scar tissue that makes his anatomy very difficult to manipulate. If he requires operative intervention will likely need to be left in discontinuity and eventual ileostomy as he has already failed two anastamoses. Continue HARIS drain suction. Will maintain LIWS to NGT and monitor output. If HARIS drainage increases significantly will have to talk to patient about the impo rtance of putting it in again. HARIS drain must be secured and kept in place. Since HARIS drain has continued to decrease over the last several days, will continue q 8h ocreotide. No additional changes in management at time. Need to ensure drain is protected during movements. Prognosis is gaurded. Subjective Date of service: 01/25/21 Patient Reports: Positive: no new complaints (no acute events overnight. Pt says that he vomited after being transferred from the bed to chair) Objective Vital Signs - 12hr 01/25/21 01/25/21 01/25/21 01:20 01:21 02:00 Temperature Pulse Rate 88 88 80 Pulse Rate [ From Monitor] Respiratory 15 Rate Blood Pressure 161/73 161/73 157/67 O2 Sat by Pulse Oximetry 01/25/21 01/25/21 01/25/21 03:39 04:00 06:00 Temperature 99.0 F Pulse Rate 80 103 H Pulse Rate [ From Monitor] Respiratory 14 26 H Rate Blood Pressure 178/82 170/86 O2 Sat by Pulse 93 95 Oximetry 01/25/21 01/25/21 01/25/21 06:08 08:00 09:42 Temperature 98.8 F Pulse Rate 88 88 83 Pulse Rate [ 88 From Monitor] Respiratory 14 Rate Blood Pressure 170/86 168/76 173/82 O2 Sat by Pulse 96 Oximetry 01/25/21 01/25/21 01/25/21 09:43 10:00 11:35 Temperature Pulse Rate 80 74 81 Pulse Rate [ From Monitor] Respiratory 17 Rate Blood Pressure 173/82 172/86 155/73 O2 Sat by Pulse 90 Oximetry 01/25/21 12:00 Temperature Pulse Rate 82 Pulse Rate [ 80 From Monitor] Respiratory 18 Rate Blood Pressure 160/84 O2 Sat by Pulse 99 Oximetry - General physical appearance well developed, no distress, no pain - Respiratory normal expansion, normal respiratory effort - Abdomen soft, not tender, not rebound, not guarding, not rigid, other (HARIS drain bilious 50cc recorded last 24 hours, NGT light bilious, stool in stool bag. wound vac in place) - Labs 01/20/21 03:35 01/25/21 08:35 Diabetes panel 01/25/21 01/25/21 Range/Units 06:00 08:35 Sodium 116 L* D 137 D (137-145) mmol/L Potassium 4.3 D 3.7 (3.6-5.0) mmol/L Chloride 79.1 L 97.0 L (98-107) mmol/L Carbon Dioxide 17 L D 23 (22-30) mmol/L BUN 72 H 92 H (9-20) mg/dL Creatinine 7.4 H 11.0 H (0.8-1.3) mg/dL Glucose 2242 H* 125 H (75-100) mg/dL Calcium 6.7 L D 8.7 D (8.4-10.2) mg/dL Calcium panel 01/25/21 01/25/21 Range/Units 06:00 08:35 Calcium 6.7 L D 8.7 D (8.4-10.2) mg/dL Pituitary panel 01/25/21 01/25/21 Range/Units 06:00 08:35 Sodium 116 L* D 137 D (137-145) mmol/L Potassium 4.3 D 3.7 (3.6-5.0) mmol/L Chloride 79.1 L 97.0 L (98-107) mmol/L Carbon Dioxide 17 L D 23 (22-30) mmol/L BUN 72 H 92 H (9-20) mg/dL Creatinine 7.4 H 11.0 H (0.8-1.3) mg/dL Glucose 2242 H* 125 H (75-100) mg/dL Calcium 6.7 L D 8.7 D (8.4-10.2) mg/dL Adrenal panel 01/25/21 01/25/21 Range/Units 06:00 08:35 Sodium 116 L* D 137 D (137-145) mmol/L Potassium 4.3 D 3.7 (3.6-5.0) mmol/L Chloride 79.1 L 97.0 L (98-107) mmol/L Carbon Dioxide 17 L D 23 (22-30) mmol/L BUN 72 H 92 H (9-20) mg/dL Creatinine 7.4 H 11.0 H (0.8-1.3) mg/dL Glucose 2242 H* 125 H (75-100) mg/dL Calcium 6.7 L D 8.7 D (8.4-10.2) mg/dL
[2021-01-25] MEDS: ONDANSETRON 4 MG/2 ML INJ IV PRN (12:55)
--- NOTE | 2021-01-25 14:19 | Progress Note ---
Assessment and Plan This is a 60 YO Male with ESRD on PD, GERD, Crohn's Disease, Nicotine Dependence, HTN, Systolic CHF(EF 35%) who presented to the emergency department on 12/22 with complaints of abdominal pain which began shortly after eating fast food rated 10/10 which is periumbilical, constant, associated with fever, nausea and multiple sites of vomiting and self-reported inability to undergo PD. In the emergency room patient underwent a CT scan of the abdomen/pelvis which revealed evidence of partial small bowel obstruction, symptoms were consistent with bacterial peritonitis. Patient was admitted to the hospital service with sepsis, peritonitis, and small bowel obstruction with consults to general surgery, nephrology, infectious disease and [facility]. On 01/06/21 the patient underwent an exploratory laparotomy, jejunal colonic anastomosis, and segmental small bowel resection. ABG's (01/07/21): pH 7.345 pH POC ABG pCO2 41.4 mmHg ABG pCO2 40.3 mm Hg POC ABG pO2 94.5 mmHg ABG pO2 67.4 mm Hg POC ABG HCO3 22.7 ABG O2 Saturation 94.3 % Patient alert, awake . Patient is on room air. O2 saturation 97%. No acute respiratory distress. Patient running low grade temp. Has mild leukocytosis. Blood pressure 154/76. Patient is on Clonadine and metoprol. Management as per primary care. Chest x-ray reported There is decreased inspiration compared to yesterday's exam. Hazy opacity in the right perihilar region and larger area of infiltration in the left lower lung appears stable given differences in the level of inspiration. No large pleural effusion or pneumothorax. Patient presently on s/c heparin, famotidine - Patient Problems (1) Nicotine dependence Current Visit: Yes Status: Acute Qualifiers: Nicotine product type: cigarettes Substance use status: in withdrawal Qualified Code(s): F17.213 - Nicotine dependence, cigarettes, with withdrawal Plan to address problem: Counseled patient to stop smoking. (2) SOB (shortness of breath) Current Visit: No Status: Acute Plan to address problem: Improved. Patient resting on room air at this time. O2 saturation 97%. (3) Atrial fibrillation Current Visit: Yes Status: Acute Plan to address problem: Management as per cardiology. (4) CHF (congestive heart failure) Current Visit: No Status: Acute Qualifiers: Heart failure chronicity: chronic Plan to address problem: Management as per cardiology. (5) Small bowel obstruction Current Visit: Yes Status: Acute Plan to address problem: On 01/06/21 the patient underwent an exploratory laparotomy, jejunal colonic anastomosis, and segmental small bowel resection. Management as per surgery. Continue incentive spirometry (6) Small intestinal gangrene Current Visit: Yes Status: Acute Plan to address problem: On 01/06/21 the patient underwent an exploratory laparotomy, jejunal colonic anastomosis, and segmental small bowel resection. Management as per surgery. Continue incentive spirometry (7) Accelerated hypertension Current Visit: No Status: Acute Plan to address problem: Management as per primary care. (8) Acute on chronic kidney disease, stage 3 Current Visit: No Status: Acute Plan to address problem: Management as per nephrology. Subjective Date of service: 01/25/21 Principal diagnosis: Ac hypoxemic resp failure; Severe Sepsis; Peritonitis; Acute SBO; ESRD; CHF Interval history: This is a 60 YO Male with ESRD on PD, GERD, Crohn's Disease, Nicotine Dependence, HTN, Systolic CHF(EF 35%) who presented to the emergency department on 12/22 with complaints of abdominal pain which began shortly after eating fast food rated 10/10 which is periumbilical, constant, associated with fever, nausea and multiple sites of vomiting and self-reported inability to undergo PD. In the emergency room patient underwent a CT scan of the abdomen/pelvis which revealed evidence of partial small bowel obstruction, symptoms were consistent with bacterial peritonitis. Patient was admitted to the hospital service with sepsis, peritonitis, and small bowel obstruction with consults to general surgery, nephrology, infectious disease and [facility]. On 01/06/21 the patient underwent an exploratory laparotomy, jejunal colonic anas tomosis, and segmental small bowel resection. ABG's (01/07/21): pH 7.345 pH POC ABG pCO2 41.4 mmHg ABG pCO2 40.3 mm Hg POC ABG pO2 94.5 mmHg ABG pO2 67.4 mm Hg POC ABG HCO3 22.7 ABG O2 Saturation 94.3 % Patient alert, awake . Patient is on room air. O2 saturation 97%. No acute respiratory distress. Patient running low grade temp. Has mild leukocytosis. Blood pressure 154/76. Patient is on Clonadine and metoprol. Management as per primary care. Chest x-ray reported There is decreased inspiration compared to yesterday's exam. Hazy opacity in the right perihilar region and larger area of infiltration in the left lower lung appears stable given differences in the level of inspiration. No large pleural effusion or pneumothorax. Patient presently on s/c heparin, famotidine Objective Vital Signs - 12hr 01/25/21 01/25/21 01/25/21 03:39 04:00 06:00 Temperature 99.0 F Pulse Rate 80 103 H Pulse Rate [ From Monitor] Respiratory 14 26 H Rate Blood Pressure 178/82 170/86 O2 Sat by Pulse 93 95 Oximetry 01/25/21 01/25/21 01/25/21 06:08 08:00 09:42 Temperature 98.8 F Pulse Rate 88 88 83 Pulse Rate [ 88 From Monitor] Respiratory 14 Rate Blood Pressure 170/86 168/76 173/82 O2 Sat by Pulse 96 Oximetry 01/25/21 01/25/21 01/25/21 09:43 10:00 11:35 Temperature Pulse Rate 80 74 81 Pulse Rate [ From Monitor] Respiratory 17 Rate Blood Pressure 173/82 172/86 155/73 O2 Sat by Pulse 90 Oximetry 01/25/21 12:00 Temperature 98.7 F Pulse Rate 82 Pulse Rate [ 80 From Monitor] Respiratory 18 Rate Blood Pressure 160/84 O2 Sat by Pulse 99 Oximetry Constitutional: no acute distress, alert, other (elderly male with normal respiratory effort at rest) Eyes: non-icteric ENT: oropharynx dry, oropharyngeal exudate pre Neck: supple, no lymphadenopathy, no JVD Effort: normal Ascultation: Bilateral: diminished breath sounds, rales, rhonchi Percussion: Bilateral: not dull Cardiovascular: regular rate and rhythm, other (S1,S2) Gastrointestinal: hypoactive bowel sounds, soft, non-tender, non-distended (protuberant), other (Midline abdominal incision ) Integumentary: other (Midline abdominal incision ) Extremities: no cyanosis, no edema, pulses normal, no ischemia or petechiae Neurologic: non-focal exam (grossly), pupils equal and round, CN II-XII normal Psychiatric: mood appropriate, affect normal CBC and BMP: 01/20/21 03:35 01/26/21 04:19 ABG, PT/INR, D-dimer: ABG ABG pH 7.345 pH Units (7.350-7.450) L 01/07/21 17:14 POC ABG pCO2 41.4 mmHg (32.0-48.0) 01/07/21 03:07 ABG pCO2 40.3 mm Hg 01/07/21 17:14 POC ABG pO2 94.5 mmHg (83-108) 01/07/21 03:07 ABG pO2 67.4 mm Hg (80.0-90.0) L 01/07/21 17:14 POC ABG HCO3 22.7 01/07/21 03:07 ABG O2 Saturation 94.3 % (95.0-99.0) L 01/07/21 17:14 PT/INR, D-dimer PT 16.9 Sec. (12.2-14.9) H 01/01/21 12:45 INR 1.39 (0.87-1.13) H 01/01/21 12:45 Abnormal lab findings: Abnormal Labs 12/22/20 12/22/20 12/22/20 14:38 14:38 14:38 WBC RBC Hgb 11.2 L Hct 35.0 L MCV MCHC RDW 16.7 H Plt Count Lymph % (Auto) [place] % (Auto) Lymph # (Auto) [place] # (Auto) Seg Neutrophils % Seg Neuts % (Manual) 94.0 H Lymphocytes % (Manual) 5.0 L Monocytes % (Manual) Seg Neutrophils # Seg Neutrophils # Man Lymphocytes # (Manual) 0.3 L Monocytes # (Manual) PT INR ABG pH POC ABG pCO2 POC ABG pO2 ABG pO2 ABG HCO3 ABG O2 Saturation ABG Base Excess ABG Hemoglobin ABG Oxyhemoglobin ABG Sodium ABG Potassium ABG Chloride ABG Glucose Oxyhemoglobin Sodium Potassium Chloride Carbon Dioxide BUN 58 H Creatinine 13.2 H Glucose 113 H POC Glucose Lactic Acid 3.60 H* Calcium Phosphorus Magnesium Total Bilirubin 1.30 H AST ALT Alkaline Phosphatase 155 H Total Protein Albumin Triglycerides Arterial Blood Glucose Arterial Blood Ionized Calcium Digoxin Crossmatch 12/22/20 12/22/20 12/23/20 16:26 17:47 05:22 WBC RBC Hgb Hct MCV MCHC RDW Plt Count Lymph % (Auto) [place] % (Auto) Lymph # (Auto) [place] # (Auto) Seg Neutrophils % Seg Neuts % (Manual) Lymphocytes % (Manual) Monocytes % (Manual) Seg Neutrophils # Seg Neutrophils # Man Lymphocytes # (Manual) Monocytes # (Manual) PT INR ABG pH POC ABG pCO2 POC ABG pO2 ABG pO2 ABG HCO3 ABG O2 Saturation ABG Base Excess ABG Hemoglobin ABG Oxyhemoglobin ABG Sodium ABG Potassium ABG Chloride ABG Glucose Oxyhemoglobin Sodium Potassium Chloride Carbon Dioxide BUN Creatinine Glucose POC Glucose Lactic Acid 2.80 H* 3.10 H* 2.30 H* Calcium Phosphorus Magnesium Total Bilirubin AST ALT Alkaline Phosphatase Total Protein Albumin Triglycerides Arterial Blood Glucose Arterial Blood Ionized Calcium Digoxin Crossmatch 12/23/20 12/23/20 12/23/20 05:22 05:22 06:35 WBC 12.1 H RBC Hgb 11.0 L Hct 33.7 L MCV MCHC RDW 16.9 H Plt Count Lymph % (Auto) [place] % (Auto) Lymph # (Auto) [place] # (Auto) Seg Neutrophils % Seg Neuts % (Manual) 93.0 H Lymphocytes % (Manual) 1.0 L Monocytes % (Manual) Seg Neutrophils # Seg Neutrophils # Man 11.3 H Lymphocytes # (Manual) 0.1 L Monocytes # (Manual) PT INR ABG pH POC ABG pCO2 POC ABG pO2 ABG pO2 ABG HCO3 ABG O2 Saturation ABG Base Excess ABG Hemoglobin ABG Oxyhemoglobin ABG Sodium ABG Potassium ABG Chloride ABG Glucose Oxyhemoglobin Sodium Potassium 5.7 H D Chloride Carbon Dioxide BUN 73 H Creatinine 14.2 H Glucose POC Glucose Lactic Acid 2.30 H* Calcium 7.9 L Phosphorus Magnesium Total Bilirubin 1.40 H AST 119 H ALT 130 H Alkaline Phosphatase 183 H Total Protein 6.1 L Albumin 3.6 L Triglycerides Arterial Blood Glucose Arterial Blood Ionized Calcium Digoxin Crossmatch 12/23/20 12/23/20 12/23/20 11:40 13:53 16:47 WBC RBC Hgb 10.0 L Hct 30.4 L MCV MCHC RDW Plt Count Lymph % (Auto) [place] % (Auto) Lymph # (Auto) [place] # (Auto) Seg Neutrophils % Seg Neuts % (Manual) Lymphocytes % (Manual) Monocytes % (Manual) Seg Neutrophils # Seg Neutrophils # Man Lymphocytes # (Manual) Monocytes # (Manual) PT INR ABG pH POC ABG pCO2 POC ABG pO2 137.5 H ABG pO2 ABG HCO3 ABG O2 Saturation ABG Base Excess ABG Hemoglobin 9.7 L ABG Oxyhemoglobin ABG Sodium 134.1 L ABG Potassium 6.6 H ABG Chloride ABG Glucose 103 H Oxyhemoglobin Sodium Potassium Chloride Carbon Dioxide BUN Creatinine Glucose POC Glucose Lactic Acid Calcium Phosphorus Magnesium Total Bilirubin AST ALT Alkaline Phosphatase Total Protein Albumin Triglycerides Arterial Blood Glucose 103 H Arterial Blood Ionized Calcium 3.8 L Digoxin Crossmatch See Detail 12/23/20 12/23/20 12/24/20 20:35 20:40 01:20 WBC RBC Hgb Hct MCV MCHC RDW Plt Count Lymph % (Auto) [place] % (Auto) Lymph # (Auto) [place] # (Auto) Seg Neutrophils % Seg Neuts % (Manual) Lymphocytes % (Manual) Monocytes % (Manual) Seg Neutrophils # Seg Neutrophils # Man Lymphocytes # (Manual) Monocytes # (Manual) PT INR ABG pH 7.252 L POC ABG pCO2 POC ABG pO2 ABG pO2 50.1 L ABG HCO3 ABG O2 Saturation 81.1 L ABG Base Excess -5.9 L ABG Hemoglobin 12.1 L ABG Oxyhemoglobin ABG Sodium ABG Potassium ABG Chloride ABG Glucose Oxyhemoglobin 78.6 L Sodium 134 L Potassium 6.9 H* D 6.3 H* Chloride Carbon Dioxide 18 L 20 L BUN 87 H 91 H Creatinine 15.3 H 15.3 H Glucose 103 H POC Glucose Lactic Acid Calcium 6.9 L 7.5 L Phosphorus Magnesium Total Bilirubin AST ALT Alkaline Phosphatase Total Protein Albumin Triglycerides Arterial Blood Glucose Arterial Blood Ionized Calcium Digoxin Crossmatch 12/24/20 12/24/20 12/24/20 04:00 10:29 10:29 WBC RBC 3.49 L Hgb 10.5 L Hct 31.2 L MCV MCHC RDW 17.5 H Plt Count 124 L Lymph % (Auto) 3.7 L [place] % (Auto) 9.8 H Lymph # (Auto) 0.2 L [place] # (Auto) Seg Neutrophils % 85.9 H Seg Neuts % (Manual) Lymphocytes % (Manual) Monocytes % (Manual) Seg Neutrophils # Seg Neutrophils # Man Lymphocytes # (Manual) Monocytes # (Manual) PT INR ABG pH POC ABG pCO2 28.1 L POC ABG pO2 ABG pO2 ABG HCO3 ABG O2 Saturation ABG Base Excess ABG Hemoglobin ABG Oxyhemoglobin ABG Sodium 133.9 L ABG Potassium 5.3 H ABG Chloride 108.0 H ABG Glucose Oxyhemoglobin Sodium Potassium 5.6 H Chloride Carbon Dioxide 19 L BUN 99 H Creatinine 16.9 H Glucose 52 L POC Glucose Lactic Acid Calcium 7.6 L Phosphorus Magnesium Total Bilirubin 3.50 H AST 67 H ALT 71 H Alkaline Phosphatase Total Protein 3.5 L D Albumin 2.1 L Triglycerides Arterial Blood Glucose Arterial Blood Ionized Calcium 4.0 L Digoxin Crossmatch 12/25/20 12/25/20 12/25/20 03:33 04:00 04:00 WBC 3.8 L RBC 2.90 L Hgb 8.6 L Hct 25.7 L MCV MCHC RDW 16.7 H Plt Count 113 L Lymph % (Auto) [place] % (Auto) Lymph # (Auto) [place] # (Auto) Seg Neutrophils % Seg Neuts % (Manual) Lymphocytes % (Manual) Monocytes % (Manual) Seg Neutrophils # Seg Neutrophils # Man Lymphocytes # (Manual) Monocytes # (Manual) PT INR ABG pH 7.544 H POC ABG pCO2 28.2 L POC ABG pO2 62.8 L ABG pO2 ABG HCO3 ABG O2 Saturation ABG Base Excess ABG Hemoglobin 9.3 L ABG Oxyhemoglobin 93.0 L ABG Sodium 130.3 L ABG Potassium ABG Chloride ABG Glucose 97 H Oxyhemoglobin Sodium Potassium Chloride Carbon Dioxide BUN 62 H Creatinine 11.4 H Glucose POC Glucose Lactic Acid Calcium 7.7 L Phosphorus 5.00 H Magnesium Total Bilirubin AST ALT Alkaline Phosphatase Total Protein Albumin Triglycerides Arterial Blood Glucose 97 H Arterial Blood Ionized Calcium 3.9 L Digoxin Crossmatch 12/26/20 12/26/20 12/27/20 04:46 Unknown 03:40 WBC 4.1 L RBC 2.61 L Hgb 7.8 L Hct 23.4 L MCV MCHC RDW 17.1 H Plt Count 119 L Lymph % (Auto) 5.3 L [place] % (Auto) 10.6 H Lymph # (Auto) 0.2 L [place] # (Auto) Seg Neutrophils % 78.8 H Seg Neuts % (Manual) Lymphocytes % (Manual) Monocytes % (Manual) Seg Neutrophils # Seg Neutrophils # Man Lymphocytes # (Manual) Monocytes # (Manual) PT INR ABG pH 7.333 L 7.332 L POC ABG pCO2 POC ABG pO2 ABG pO2 ABG HCO3 26.9 H ABG O2 Saturation ABG Base Excess -2.4 L ABG Hemoglobin 6.8 L 7.2 L ABG Oxyhemoglobin ABG Sodium ABG Potassium ABG Chloride ABG Glucose Oxyhemoglobin 93.0 L 93.1 L Sodium Potassium Chloride Carbon Dioxide BUN Creatinine Glucose POC Glucose Lactic Acid Calcium Phosphorus Magnesium Total Bilirubin AST ALT Alkaline Phosphatase Total Protein Albumin Triglycerides Arterial Blood Glucose Arterial Blood Ionized Calcium Digoxin Crossmatch 12/27/20 12/27/20 12/27/20 06:40 06:40 11:22 WBC 4.4 L RBC 2.49 L Hgb 7.4 L Hct 22.4 L MCV MCHC RDW 17.1 H Plt Count 111 L Lymph % (Auto) 6.7 L [place] % (Auto) 12.6 H Lymph # (Auto) 0.3 L [place] # (Auto) Seg Neutrophils % 77.6 H Seg Neuts % (Manual) Lymphocytes % (Manual) Monocytes % (Manual) Seg Neutrophils # Seg Neutrophils # Man Lymphocytes # (Manual) Monocytes # (Manual) PT INR ABG pH POC ABG pCO2 POC ABG pO2 ABG pO2 ABG HCO3 ABG O2 Saturation ABG Base Excess ABG Hemoglobin ABG Oxyhemoglobin ABG Sodium ABG Potassium ABG Chloride ABG Glucose Oxyhemoglobin Sodium Potassium Chloride Carbon Dioxide BUN 64 H Creatinine 9.8 H Glucose 147 H POC Glucose 134 H Lactic Acid Calcium 8.3 L Phosphorus 5.00 H Magnesium Total Bilirubin 3.70 H AST 72 H ALT Alkaline Phosphatase 142 H Total Protein 5.1 L D Albumin 2.9 L Triglycerides Arterial Blood Glucose Arterial Blood Ionized Calcium Digoxin Crossmatch 12/27/20 12/27/20 12/28/20 17:29 23:31 03:09 WBC RBC Hgb Hct MCV MCHC RDW Plt Count Lymph % (Auto) [place] % (Auto) Lymph # (Auto) [place] # (Auto) Seg Neutrophils % Seg Neuts % (Manual) Lymphocytes % (Manual) Monocytes % (Manual) Seg Neutrophils # Seg Neutrophils # Man Lymphocytes # (Manual) Monocytes # (Manual) PT INR ABG pH 7.474 H POC ABG pCO2 POC ABG pO2 ABG pO2 ABG HCO3 ABG O2 Saturation ABG Base Excess ABG Hemoglobin 7.8 L ABG Oxyhemoglobin ABG Sodium ABG Potassium ABG Chloride ABG Glucose Oxyhemoglobin Sodium Potassium Chloride Carbon Dioxide BUN Creatinine Glucose POC Glucose 121 H 131 H Lactic Acid Calcium Phosphorus Magnesium Total Bilirubin AST ALT Alkaline Phosphatase Total Protein Albumin Triglycerides Arterial Blood Glucose Arterial Blood Ionized Calcium Digoxin Crossmatch 12/28/20 12/28/20 12/28/20 05:37 05:40 05:40 WBC 4.3 L RBC 2.40 L Hgb 7.2 L Hct 21.5 L MCV MCHC RDW 17.4 H Plt Count 112 L Lymph % (Auto) 6.5 L [place] % (Auto) 16.7 H Lymph # (Auto) 0.3 L [place] # (Auto) Seg Neutrophils % 71.1 H Seg Neuts % (Manual) Lymphocytes % (Manual) Monocytes % (Manual) Seg Neutrophils # Seg Neutrophils # Man Lymphocytes # (Manual) Monocytes # (Manual) PT INR ABG pH POC ABG pCO2 POC ABG pO2 ABG pO2 ABG HCO3 ABG O2 Saturation ABG Base Excess ABG Hemoglobin ABG Oxyhemoglobin ABG Sodium ABG Potassium ABG Chloride ABG Glucose Oxyhemoglobin Sodium Potassium Chloride Carbon Dioxide BUN 85 H Creatinine 11.5 H Glucose 132 H POC Glucose 121 H Lactic Acid Calcium 8.2 L Phosphorus Magnesium 2.40 H Total Bilirubin 3.80 H AST 70 H ALT Alkaline Phosphatase 176 H Total Protein 5.0 L Albumin 2.9 L Triglycerides Arterial Blood Glucose Arterial Blood Ionized Calcium Digoxin Crossmatch 12/28/20 12/28/20 12/28/20 11:34 15:00 17:35 WBC RBC Hgb Hct MCV MCHC RDW Plt Count Lymph % (Auto) [place] % (Auto) Lymph # (Auto) [place] # (Auto) Seg Neutrophils % Seg Neuts % (Manual) Lymphocytes % (Manual) Monocytes % (Manual) Seg Neutrophils # Seg Neutrophils # Man Lymphocytes # (Manual) Monocytes # (Manual) PT INR ABG pH 7.461 H POC ABG pCO2 POC ABG pO2 72.2 L ABG pO2 ABG HCO3 ABG O2 Saturation ABG Base Excess ABG Hemoglobin 8.2 L ABG Oxyhemoglobin 93.6 L ABG Sodium 134.1 L ABG Potassium 3.2 L ABG Chloride ABG Glucose 135 H Oxyhemoglobin Sodium Potassium Chloride Carbon Dioxide BUN Creatinine Glucose POC Glucose 137 H 144 H Lactic Acid Calcium Phosphorus Magnesium Total Bilirubin AST ALT Alkaline Phosphatase Total Protein Albumin Triglycerides Arterial Blood Glucose 135 H Arterial Blood Ionized Calcium 4.4 L Digoxin Crossmatch 12/28/20 12/28/20 12/29/20 19:44 Unknown 00:21 WBC RBC Hgb Hct MCV MCHC RDW Plt Count Lymph % (Auto) [place] % (Auto) Lymph # (Auto) [place] # (Auto) Seg Neutrophils % Seg Neuts % (Manual) Lymphocytes % (Manual) Monocytes % (Manual) Seg Neutrophils # Seg Neutrophils # Man Lymphocytes # (Manual) Monocytes # (Manual) PT INR ABG pH 7.474 H POC ABG pCO2 POC ABG pO2 ABG pO2 ABG HCO3 ABG O2 Saturation ABG Base Excess ABG Hemoglobin 7.8 L ABG Oxyhemoglobin ABG Sodium 133.2 L ABG Potassium ABG Chloride ABG Glucose 139 H Oxyhemoglobin Sodium 135 L Potassium Chloride 96.6 L Carbon Dioxide BUN 47 H Creatinine 7.4 H Glucose 130 H POC Glucose 142 H Lactic Acid Calcium 8.3 L Phosphorus Magnesium Total Bilirubin AST ALT Alkaline Phosphatase Total Protein Albumin Triglycerides Arterial Blood Glucose 139 H Arterial Blood Ionized Calcium 4.3 L Digoxin Crossmatch 12/29/20 12/29/20 12/29/20 05:16 05:16 05:26 WBC RBC 2.53 L Hgb 7.7 L Hct 22.8 L MCV MCHC RDW 17.0 H Plt Count 130 L Lymph % (Auto) [place] % (Auto) Lymph # (Auto) [place] # (Auto) Seg Neutrophils % Seg Neuts % (Manual) 79.0 H Lymphocytes % (Manual) 9.0 L Monocytes % (Manual) Seg Neutrophils # Seg Neutrophils # Man Lymphocytes # (Manual) 0.6 L Monocytes # (Manual) PT INR ABG pH POC ABG pCO2 POC ABG pO2 ABG pO2 ABG HCO3 ABG O2 Saturation ABG Base Excess ABG Hemoglobin ABG Oxyhemoglobin ABG Sodium ABG Potassium ABG Chloride ABG Glucose Oxyhemoglobin Sodium Potassium 3.4 L Chloride 96.6 L Carbon Dioxide BUN 59 H Creatinine 8.3 H Glucose 127 H POC Glucose 141 H Lactic Acid Calcium 8.2 L Phosphorus Magnesium Total Bilirubin 3.00 H AST 88 H ALT Alkaline Phosphatase 188 H Total Protein 5.1 L Albumin 2.8 L Triglycerides Arterial Blood Glucose Arterial Blood Ionized Calcium Digoxin Crossmatch 12/29/20 12/29/20 12/29/20 11:33 17:29 23:22 WBC RBC Hgb Hct MCV MCHC RDW Plt Count Lymph % (Auto) [place] % (Auto) Lymph # (Auto) [place] # (Auto) Seg Neutrophils % Seg Neuts % (Manual) Lymphocytes % (Manual) Monocytes % (Manual) Seg Neutrophils # Seg Neutrophils # Man Lymphocytes # (Manual) Monocytes # (Manual) PT INR ABG pH POC ABG pCO2 POC ABG pO2 ABG pO2 ABG HCO3 ABG O2 Saturation ABG Base Excess ABG Hemoglobin ABG Oxyhemoglobin ABG Sodium ABG Potassium ABG Chloride ABG Glucose Oxyhemoglobin Sodium Potassium Chloride Carbon Dioxide BUN Creatinine Glucose POC Glucose 144 H 130 H 117 H Lactic Acid Calcium Phosphorus Magnesium Total Bilirubin AST ALT Alkaline Phosphatase Total Protein Albumin Triglycerides Arterial Blood Glucose Arterial Blood Ionized Calcium Digoxin Crossmatch 12/30/20 12/30/20 12/30/20 05:23 08:15 09:00 WBC RBC Hgb Hct MCV MCHC RDW Plt Count Lymph % (Auto) [place] % (Auto) Lymph # (Auto) [place] # (Auto) Seg Neutrophils % Seg Neuts % (Manual) Lymphocytes % (Manual) Monocytes % (Manual) Seg Neutrophils # Seg Neutrophils # Man Lymphocytes # (Manual) Monocytes # (Manual) PT INR ABG pH POC ABG pCO2 POC ABG pO2 ABG pO2 ABG HCO3 ABG O2 Saturation ABG Base Excess ABG Hemoglobin ABG Oxyhemoglobin ABG Sodium ABG Potassium ABG Chloride ABG Glucose Oxyhemoglobin Sodium 135 L Potassium Chloride 95.9 L Carbon Dioxide BUN 85 H Creatinine 10.6 H Glucose 128 H POC Glucose 135 H 127 H Lactic Acid Calcium 8.3 L Phosphorus Magnesium Total Bilirubin 2.40 H AST 85 H ALT Alkaline Phosphatase 216 H Total Protein 5.3 L Albumin 2.6 L Triglycerides 155 H Arterial Blood Glucose Arterial Blood Ionized Calcium Digoxin Crossmatch 12/30/20 12/30/20 12/30/20 09:00 11:53 15:49 WBC RBC 2.61 L Hgb 7.8 L Hct 23.7 L MCV MCHC RDW 17.3 H Plt Count Lymph % (Auto) [place] % (Auto) Lymph # (Auto) [place] # (Auto) Seg Neutrophils % Seg Neuts % (Manual) Lymphocytes % (Manual) Monocytes % (Manual) Seg Neutrophils # Seg Neutrophils # Man Lymphocytes # (Manual) Monocytes # (Manual) PT INR ABG pH POC ABG pCO2 POC ABG pO2 ABG pO2 ABG HCO3 ABG O2 Saturation ABG Base Excess ABG Hemoglobin ABG Oxyhemoglobin ABG Sodium ABG Potassium ABG Chloride ABG Glucose Oxyhemoglobin Sodium Potassium Chloride Carbon Dioxide BUN Creatinine Glucose POC Glucose 155 H 146 H Lactic Acid Calcium Phosphorus Magnesium Total Bilirubin AST ALT Alkaline Phosphatase Total Protein Albumin Triglycerides Arterial Blood Glucose Arterial Blood Ionized Calcium Digoxin Crossmatch 12/30/20 12/30/20 12/31/20 17:53 23:45 03:56 WBC RBC Hgb Hct MCV MCHC RDW Plt Count Lymph % (Auto) [place] % (Auto) Lymph # (Auto) [place] # (Auto) Seg Neutrophils % Seg Neuts % (Manual) Lymphocytes % (Manual) Monocytes % (Manual) Seg Neutrophils # Seg Neutrophils # Man Lymphocytes # (Manual) Monocytes # (Manual) PT INR ABG pH POC ABG pCO2 POC ABG pO2 49.4 L ABG pO2 ABG HCO3 ABG O2 Saturation ABG Base Excess ABG Hemoglobin 10.3 L ABG Oxyhemoglobin 84.2 L ABG Sodium 133.1 L ABG Potassium ABG Chloride ABG Glucose 173 H Oxyhemoglobin Sodium Potassium Chloride Carbon Dioxide BUN Creatinine Glucose POC Glucose 139 H 173 H Lactic Acid Calcium Phosphorus Magnesium Total Bilirubin AST ALT Alkaline Phosphatase Total Protein Albumin Triglycerides Arterial Blood Glucose 173 H Arterial Blood Ionized Calcium Digoxin Crossmatch 12/31/20 12/31/20 12/31/20 05:07 06:51 06:51 WBC 20.3 H RBC 3.32 L Hgb 9.8 L Hct 30.3 L D MCV MCHC RDW 17.3 H Plt Count Lymph % (Auto) [place] % (Auto) Lymph # (Auto) [place] # (Auto) Seg Neutrophils % Seg Neuts % (Manual) 87.0 H Lymphocytes % (Manual) 10.0 L Monocytes % (Manual) Seg Neutrophils # Seg Neutrophils # Man 17.7 H Lymphocytes # (Manual) Monocytes # (Manual) PT INR ABG pH POC ABG pCO2 POC ABG pO2 ABG pO2 ABG HCO3 ABG O2 Saturation ABG Base Excess ABG Hemoglobin ABG Oxyhemoglobin ABG Sodium ABG Potassium ABG Chloride ABG Glucose Oxyhemoglobin Sodium Potassium 5.2 H D Chloride Carbon Dioxide BUN 62 H Creatinine 8.4 H Glucose 116 H POC Glucose 120 H Lactic Acid Calcium Phosphorus Magnesium 1.60 L Total Bilirubin AST ALT Alkaline Phosphatase Total Protein Albumin Triglycerides Arterial Blood Glucose Arterial Blood Ionized Calcium Digoxin Crossmatch 12/31/20 12/31/20 12/31/20 09:38 12:19 12:22 WBC RBC Hgb Hct MCV MCHC RDW Plt Count Lymph % (Auto) [place] % (Auto) Lymph # (Auto) [place] # (Auto) Seg Neutrophils % Seg Neuts % (Manual) Lymphocytes % (Manual) Monocytes % (Manual) Seg Neutrophils # Seg Neutrophils # Man Lymphocytes # (Manual) Monocytes # (Manual) PT INR ABG pH POC ABG pCO2 POC ABG pO2 ABG pO2 354.0 H ABG HCO3 ABG O2 Saturation 99.6 H ABG Base Excess ABG Hemoglobin 9.1 L ABG Oxyhemoglobin ABG Sodium ABG Potassium ABG Chloride ABG Glucose Oxyhemoglobin Sodium Potassium 5.2 H Chloride Carbon Dioxide BUN Creatinine Glucose POC Glucose 132 H Lactic Acid Calcium Phosphorus Magnesium Total Bilirubin AST ALT Alkaline Phosphatase Total Protein Albumin Triglycerides Arterial Blood Glucose Arterial Blood Ionized Calcium Digoxin Crossmatch 12/31/20 01/01/21 01/01/21 23:23 03:03 05:04 WBC RBC Hgb Hct MCV MCHC RDW Plt Count Lymph % (Auto) [place] % (Auto) Lymph # (Auto) [place] # (Auto) Seg Neutrophils % Seg Neuts % (Manual) Lymphocytes % (Manual) Monocytes % (Manual) Seg Neutrophils # Seg Neutrophils # Man Lymphocytes # (Manual) Monocytes # (Manual) PT INR ABG pH POC ABG pCO2 POC ABG pO2 79.6 L ABG pO2 ABG HCO3 ABG O2 Saturation ABG Base Excess ABG Hemoglobin 9.2 L ABG Oxyhemoglobin ABG Sodium 131.6 L ABG Potassium 5.8 H ABG Chloride ABG Glucose 177 H Oxyhemoglobin Sodium Potassium Chloride Carbon Dioxide BUN Creatinine Glucose POC Glucose 174 H 167 H Lactic Acid Calcium Phosphorus Magnesium Total Bilirubin AST ALT Alkaline Phosphatase Total Protein Albumin Triglycerides Arterial Blood Glucose 177 H Arterial Blood Ionized Calcium Digoxin Crossmatch 01/01/21 01/01/21 01/01/21 07:31 07:31 11:31 WBC 26.1 H RBC 2.95 L Hgb 8.6 L Hct 27.1 L MCV MCHC RDW 18.2 H Plt Count Lymph % (Auto) [place] % (Auto) Lymph # (Auto) [place] # (Auto) Seg Neutrophils % Seg Neuts % (Manual) 96.0 H Lymphocytes % (Manual) 4.0 L Monocytes % (Manual) Seg Neutrophils # Seg Neutrophils # Man 25.1 H Lymphocytes # (Manual) 1.0 L Monocytes # (Manual) PT INR ABG pH POC ABG pCO2 POC ABG pO2 ABG pO2 ABG HCO3 ABG O2 Saturation ABG Base Excess ABG Hemoglobin ABG Oxyhemoglobin ABG Sodium ABG Potassium ABG Chloride ABG Glucose Oxyhemoglobin Sodium Potassium 6.0 H Chloride Carbon Dioxide 21 L BUN 89 H Creatinine 10.5 H Glucose 179 H POC Glucose Lactic Acid Calcium Phosphorus Magnesium Total Bilirubin AST ALT Alkaline Phosphatase Total Protein Albumin Triglycerides Arterial Blood Glucose Arterial Blood Ionized Calcium Digoxin Crossmatch See Detail 01/01/21 01/01/21 01/01/21 11:51 12:45 16:52 WBC RBC Hgb Hct MCV MCHC RDW Plt Count Lymph % (Auto) [place] % (Auto) Lymph # (Auto) [place] # (Auto) Seg Neutrophils % Seg Neuts % (Manual) Lymphocytes % (Manual) Monocytes % (Manual) Seg Neutrophils # Seg Neutrophils # Man Lymphocytes # (Manual) Monocytes # (Manual) PT 16.9 H INR 1.39 H ABG pH POC ABG pCO2 POC ABG pO2 ABG pO2 ABG HCO3 ABG O2 Saturation ABG Base Excess ABG Hemoglobin ABG Oxyhemoglobin ABG Sodium ABG Potassium ABG Chloride ABG Glucose Oxyhemoglobin Sodium Potassium Chloride Carbon Dioxide BUN Creatinine Glucose POC Glucose 157 H 177 H Lactic Acid Calcium Phosphorus Magnesium Total Bilirubin AST ALT Alkaline Phosphatase Total Protein Albumin Triglycerides Arterial Blood Glucose Arterial Blood Ionized Calcium Digoxin Crossmatch 01/01/21 01/01/21 01/01/21 17:58 17:58 20:12 WBC 26.9 H RBC 3.14 L Hgb 9.3 L Hct 29.6 L MCV MCHC RDW 17.5 H Plt Count Lymph % (Auto) [place] % (Auto) Lymph # (Auto) [place] # (Auto) Seg Neutrophils % Seg Neuts % (Manual) 84.0 H Lymphocytes % (Manual) 4.0 L Monocytes % (Manual) 12.0 H Seg Neutrophils # Seg Neutrophils # Man 22.6 H Lymphocytes # (Manual) 1.1 L Monocytes # (Manual) 3.2 H PT INR ABG pH POC ABG pCO2 POC ABG pO2 ABG pO2 ABG HCO3 ABG O2 Saturation ABG Base Excess ABG Hemoglobin ABG Oxyhemoglobin ABG Sodium ABG Potassium ABG Chloride ABG Glucose Oxyhemoglobin Sodium 136 L Potassium 6.2 H* Chloride Carbon Dioxide 21 L BUN 92 H Creatinine 10.8 H Glucose 171 H POC Glucose 288 H Lactic Acid Calcium Phosphorus Magnesium Total Bilirubin 2.10 H AST 223 H ALT 100 H Alkaline Phosphatase 206 H Total Protein 4.8 L Albumin 1.9 L Triglycerides Arterial Blood Glucose Arterial Blood Ionized Calcium Digoxin Crossmatch 01/02/21 01/02/21 01/02/21 00:12 00:45 03:05 WBC RBC Hgb Hct MCV MCHC RDW Plt Count Lymph % (Auto) [place] % (Auto) Lymph # (Auto) [place] # (Auto) Seg Neutrophils % Seg Neuts % (Manual) Lymphocytes % (Manual) Monocytes % (Manual) Seg Neutrophils # Seg Neutrophils # Man Lymphocytes # (Manual) Monocytes # (Manual) PT INR ABG pH POC ABG pCO2 POC ABG pO2 81.8 L ABG pO2 ABG HCO3 ABG O2 Saturation ABG Base Excess ABG Hemoglobin 8.0 L ABG Oxyhemoglobin ABG Sodium 129.8 L ABG Potassium 5.4 H ABG Chloride ABG Glucose 257 H Oxyhemoglobin Sodium 136 L Potassium 5.8 H Chloride 96.6 L Carbon Dioxide BUN 95 H Creatinine 11.2 H Glucose 238 H POC Glucose 223 H Lactic Acid Calcium Phosphorus Magnesium Total Bilirubin AST ALT Alkaline Phosphatase Total Protein Albumin Triglycerides Arterial Blood Glucose 257 H Arterial Blood Ionized Calcium 4.0 L Digoxin Crossmatch 01/02/21 01/02/21 01/02/21 06:25 08:00 08:00 WBC 17.5 H RBC 2.31 L Hgb 6.7 L Hct 22.1 L D MCV 96 H MCHC 30 L RDW 18.4 H Plt Count Lymph % (Auto) [place] % (Auto) Lymph # (Auto) [place] # (Auto) Seg Neutrophils % Seg Neuts % (Manual) Lymphocytes % (Manual) Monocytes % (Manual) Seg Neutrophils # Seg Neutrophils # Man Lymphocytes # (Manual) Monocytes # (Manual) PT INR ABG pH POC ABG pCO2 POC ABG pO2 ABG pO2 ABG HCO3 ABG O2 Saturation ABG Base Excess ABG Hemoglobin ABG Oxyhemoglobin ABG Sodium ABG Potassium ABG Chloride ABG Glucose Oxyhemoglobin Sodium 134 L Potassium 5.3 H Chloride 92.9 L Carbon Dioxide BUN 101 H Creatinine 10.9 H Glucose 560 H* POC Glucose 239 H Lactic Acid Calcium 7.6 L Phosphorus 6.50 H Magnesium Total Bilirubin AST ALT Alkaline Phosphatase Total Protein Albumin Triglycerides Arterial Blood Glucose Arterial Blood Ionized Calcium Digoxin Crossmatch 01/02/21 01/02/21 01/02/21 11:26 15:00 17:57 WBC RBC Hgb Hct MCV MCHC RDW Plt Count Lymph % (Auto) [place] % (Auto) Lymph # (Auto) [place] # (Auto) Seg Neutrophils % Seg Neuts % (Manual) Lymphocytes % (Manual) Monocytes % (Manual) Seg Neutrophils # Seg Neutrophils # Man Lymphocytes # (Manual) Monocytes # (Manual) PT INR ABG pH POC ABG pCO2 POC ABG pO2 ABG pO2 ABG HCO3 ABG O2 Saturation ABG Base Excess ABG Hemoglobin ABG Oxyhemoglobin ABG Sodium ABG Potassium ABG Chloride ABG Glucose Oxyhemoglobin Sodium Potassium Chloride Carbon Dioxide BUN Creatinine Glucose 241 H POC Glucose 205 H 272 H Lactic Acid Calcium Phosphorus Magnesium Total Bilirubin AST ALT Alkaline Phosphatase Total Protein Albumin Triglycerides Arterial Blood Glucose Arterial Blood Ionized Calcium Digoxin Crossmatch 01/02/21 01/02/21 01/03/21 23:25 23:43 03:45 WBC RBC Hgb Hct MCV MCHC RDW Plt Count Lymph % (Auto) [place] % (Auto) Lymph # (Auto) [place] # (Auto) Seg Neutrophils % Seg Neuts % (Manual) Lymphocytes % (Manual) Monocytes % (Manual) Seg Neutrophils # Seg Neutrophils # Man Lymphocytes # (Manual) Monocytes # (Manual) PT INR ABG pH POC ABG pCO2 48.3 H POC ABG pO2 134.4 H 79.7 L ABG pO2 ABG HCO3 ABG O2 Saturation ABG Base Excess ABG Hemoglobin 7.7 L 8.6 L ABG Oxyhemoglobin ABG Sodium 131.8 L 130.4 L ABG Potassium ABG Chloride 97.0 L ABG Glucose 218 H 238 H Oxyhemoglobin Sodium Potassium Chloride Carbon Dioxide BUN Creatinine Glucose POC Glucose 218 H Lactic Acid Calcium Phosphorus Magnesium Total Bilirubin AST ALT Alkaline Phosphatase Total Protein Albumin Triglycerides Arterial Blood Glucose 218 H 238 H Arterial Blood Ionized Calcium 4.1 L 4.0 L Digoxin Crossmatch 01/03/21 01/03/21 01/03/21 04:37 04:37 05:39 WBC 15.2 H RBC 2.38 L Hgb 7.3 L Hct 21.6 L MCV MCHC RDW 16.6 H Plt Count Lymph % (Auto) [place] % (Auto) Lymph # (Auto) [place] # (Auto) Seg Neutrophils % Seg Neuts % (Manual) Lymphocytes % (Manual) Monocytes % (Manual) Seg Neutrophils # Seg Neutrophils # Man Lymphocytes # (Manual) Monocytes # (Manual) PT INR ABG pH POC ABG pCO2 POC ABG pO2 ABG pO2 ABG HCO3 ABG O2 Saturation ABG Base Excess ABG Hemoglobin ABG Oxyhemoglobin ABG Sodium ABG Potassium ABG Chloride ABG Glucose Oxyhemoglobin Sodium 136 L Potassium Chloride 94.5 L Carbon Dioxide BUN 69 H Creatinine 8.0 H Glucose 219 H POC Glucose 222 H Lactic Acid Calcium 7.8 L Phosphorus 4.80 H D Magnesium Total Bilirubin AST ALT Alkaline Phosphatase Total Protein Albumin Triglycerides Arterial Blood Glucose Arterial Blood Ionized Calcium Digoxin Crossmatch 01/03/21 01/03/21 01/03/21 11:29 18:49 23:37 WBC RBC Hgb Hct MCV MCHC RDW Plt Count Lymph % (Auto) [place] % (Auto) Lymph # (Auto) [place] # (Auto) Seg Neutrophils % Seg Neuts % (Manual) Lymphocytes % (Manual) Monocytes % (Manual) Seg Neutrophils # Seg Neutrophils # Man Lymphocytes # (Manual) Monocytes # (Manual) PT INR ABG pH POC ABG pCO2 POC ABG pO2 ABG pO2 ABG HCO3 ABG O2 Saturation ABG Base Excess ABG Hemoglobin ABG Oxyhemoglobin ABG Sodium ABG Potassium ABG Chloride ABG Glucose Oxyhemoglobin Sodium Potassium Chloride Carbon Dioxide BUN Creatinine Glucose POC Glucose 232 H 129 H 140 H Lactic Acid Calcium Phosphorus Magnesium Total Bilirubin AST ALT Alkaline Phosphatase Total Protein Albumin Triglycerides Arterial Blood Glucose Arterial Blood Ionized Calcium Digoxin Crossmatch 01/04/21 01/04/21 01/04/21 03:22 04:38 04:38 WBC 11.1 H RBC 2.89 L Hgb 8.9 L Hct 26.2 L MCV MCHC RDW 16.1 H Plt Count Lymph % (Auto) [place] % (Auto) Lymph # (Auto) [place] # (Auto) Seg Neutrophils % Seg Neuts % (Manual) Lymphocytes % (Manual) Monocytes % (Manual) Seg Neutrophils # Seg Neutrophils # Man Lymphocytes # (Manual) Monocytes # (Manual) PT INR ABG pH POC ABG pCO2 POC ABG pO2 82.3 L ABG pO2 ABG HCO3 ABG O2 Saturation ABG Base Excess ABG Hemoglobin 8.9 L ABG Oxyhemoglobin ABG Sodium 130.5 L ABG Potassium ABG Chloride ABG Glucose 124 H Oxyhemoglobin Sodium Potassium Chloride 95.5 L Carbon Dioxide BUN 87 H Creatinine 9.7 H Glucose 118 H POC Glucose Lactic Acid Calcium 7.7 L Phosphorus Magnesium Total Bilirubin AST ALT Alkaline Phosphatase Total Protein Albumin Triglycerides Arterial Blood Glucose 124 H Arterial Blood Ionized Calcium 3.5 L Digoxin Crossmatch 01/04/21 01/04/21 01/04/21 05:39 12:04 18:04 WBC RBC Hgb Hct MCV MCHC RDW Plt Count Lymph % (Auto) [place] % (Auto) Lymph # (Auto) [place] # (Auto) Seg Neutrophils % Seg Neuts % (Manual) Lymphocytes % (Manual) Monocytes % (Manual) Seg Neutrophils # Seg Neutrophils # Man Lymphocytes # (Manual) Monocytes # (Manual) PT INR ABG pH POC ABG pCO2 POC ABG pO2 ABG pO2 ABG HCO3 ABG O2 Saturation ABG Base Excess ABG Hemoglobin ABG Oxyhemoglobin ABG Sodium ABG Potassium ABG Chloride ABG Glucose Oxyhemoglobin Sodium Potassium Chloride Carbon Dioxide BUN Creatinine Glucose POC Glucose 134 H 125 H 131 H Lactic Acid Calcium Phosphorus Magnesium Total Bilirubin AST ALT Alkaline Phosphatase Total Protein Albumin Triglycerides Arterial Blood Glucose Arterial Blood Ionized Calcium Digoxin Crossmatch 01/04/21 01/05/21 01/05/21 23:41 03:23 04:49 WBC RBC Hgb Hct MCV MCHC RDW Plt Count Lymph % (Auto) [place] % (Auto) Lymph # (Auto) [place] # (Auto) Seg Neutrophils % Seg Neuts % (Manual) Lymphocytes % (Manual) Monocytes % (Manual) Seg Neutrophils # Seg Neutrophils # Man Lymphocytes # (Manual) Monocytes # (Manual) PT INR ABG pH POC ABG pCO2 POC ABG pO2 62.8 L ABG pO2 ABG HCO3 ABG O2 Saturation ABG Base Excess ABG Hemoglobin 9.5 L ABG Oxyhemoglobin 92.0 L ABG Sodium 130.1 L ABG Potassium ABG Chloride ABG Glucose 148 H Oxyhemoglobin Sodium Potassium Chloride 96.9 L Carbon Dioxide BUN 57 H Creatinine 6.7 H Glucose 135 H POC Glucose 132 H Lactic Acid Calcium 8.0 L Phosphorus Magnesium Total Bilirubin AST ALT Alkaline Phosphatase Total Protein Albumin Triglycerides Arterial Blood Glucose 148 H Arterial Blood Ionized Calcium 4.1 L Digoxin Crossmatch 01/05/21 01/05/2121 05:04 11:48 12:39 WBC RBC 3.03 L Hgb 9.3 L Hct 27.6 L MCV MCHC RDW 16.5 H Plt Count Lymph % (Auto) [place] % (Auto) Lymph # (Auto) [place] # (Auto) Seg Neutrophils % Seg Neuts % (Manual) Lymphocytes % (Manual) Monocytes % (Manual) Seg Neutrophils # Seg Neutrophils # Man Lymphocytes # (Manual) Monocytes # (Manual) PT INR ABG pH POC ABG pCO2 POC ABG pO2 ABG pO2 ABG HCO3 ABG O2 Saturation ABG Base Excess ABG Hemoglobin ABG Oxyhemoglobin ABG Sodium ABG Potassium ABG Chloride ABG Glucose Oxyhemoglobin Sodium Potassium Chloride Carbon Dioxide BUN Creatinine Glucose POC Glucose 147 H 162 H Lactic Acid Calcium Phosphorus Magnesium Total Bilirubin AST ALT Alkaline Phosphatase Total Protein Albumin Triglycerides Arterial Blood Glucose Arterial Blood Ionized Calcium Digoxin Crossmatch 01/05/21 01/05/21 01/06/21 17:50 23:32 04:15 WBC RBC Hgb Hct MCV MCHC RDW Plt Count Lymph % (Auto) [place] % (Auto) Lymph # (Auto) [place] # (Auto) Seg Neutrophils % Seg Neuts % (Manual) Lymphocytes % (Manual) Monocytes % (Manual) Seg Neutrophils # Seg Neutrophils # Man Lymphocytes # (Manual) Monocytes # (Manual) PT INR ABG pH POC ABG pCO2 POC ABG pO2 ABG pO2 191.0 H ABG HCO3 ABG O2 Saturation 99.2 H ABG Base Excess ABG Hemoglobin 9.0 L ABG Oxyhemoglobin ABG Sodium ABG Potassium ABG Chloride ABG Glucose Oxyhemoglobin Sodium Potassium Chloride Carbon Dioxide BUN Creatinine Glucose POC Glucose 155 H 115 H Lactic Acid Calcium Phosphorus Magnesium Total Bilirubin AST ALT Alkaline Phosphatase Total Protein Albumin Triglycerides Arterial Blood Glucose Arterial Blood Ionized Calcium Digoxin Crossmatch 01/06/21 01/06/21 01/06/21 04:45 05:56 07:03 WBC RBC 2.95 L Hgb 9.1 L Hct 26.8 L MCV MCHC RDW 16.8 H Plt Count Lymph % (Auto) [place] % (Auto) Lymph # (Auto) [place] # (Auto) Seg Neutrophils % Seg Neuts % (Manual) Lymphocytes % (Manual) Monocytes % (Manual) Seg Neutrophils # Seg Neutrophils # Man Lymphocytes # (Manual) Monocytes # (Manual) PT INR ABG pH POC ABG pCO2 POC ABG pO2 ABG pO2 ABG HCO3 ABG O2 Saturation ABG Base Excess ABG Hemoglobin ABG Oxyhemoglobin ABG Sodium ABG Potassium ABG Chloride ABG Glucose Oxyhemoglobin Sodium 135 L Potassium Chloride 95.9 L Carbon Dioxide BUN 82 H Creatinine 8.7 H Glucose 127 H POC Glucose 136 H Lactic Acid Calcium 8.3 L Phosphorus Magnesium Total Bilirubin AST ALT Alkaline Phosphatase Total Protein Albumin Triglycerides Arterial Blood Glucose Arterial Blood Ionized Calcium Digoxin Crossmatch 01/06/21 01/06/21 01/06/21 07:10 11:04 13:38 WBC RBC Hgb Hct MCV MCHC RDW Plt Count Lymph % (Auto) [place] % (Auto) Lymph # (Auto) [place] # (Auto) Seg Neutrophils % Seg Neuts % (Manual) Lymphocytes % (Manual) Monocytes % (Manual) Seg Neutrophils # Seg Neutrophils # Man Lymphocytes # (Manual) Monocytes # (Manual) PT INR ABG pH POC ABG pCO2 POC ABG pO2 ABG pO2 ABG HCO3 ABG O2 Saturation ABG Base Excess ABG Hemoglobin ABG Oxyhemoglobin ABG Sodium ABG Potassium ABG Chloride ABG Glucose Oxyhemoglobin Sodium Potassium Chloride Carbon Dioxide BUN Creatinine Glucose POC Glucose 178 H 155 H Lactic Acid Calcium Phosphorus Magnesium Total Bilirubin AST ALT Alkaline Phosphatase Total Protein Albumin Triglycerides Arterial Blood Glucose Arterial Blood Ionized Calcium Digoxin Crossmatch See Detail 01/06/21 01/06/21 01/07/21 17:35 22:21 03:07 WBC RBC Hgb Hct MCV MCHC RDW Plt Count Lymph % (Auto) [place] % (Auto) Lymph # (Auto) [place] # (Auto) Seg Neutrophils % Seg Neuts % (Manual) Lymphocytes % (Manual) Monocytes % (Manual) Seg Neutrophils # Seg Neutrophils # Man Lymphocytes # (Manual) Monocytes # (Manual) PT INR ABG pH POC ABG pCO2 POC ABG pO2 ABG pO2 ABG HCO3 ABG O2 Saturation ABG Base Excess ABG Hemoglobin 11.9 L ABG Oxyhemoglobin ABG Sodium 135.6 L ABG Potassium ABG Chloride ABG Glucose 181 H Oxyhemoglobin Sodium Potassium Chloride Carbon Dioxide BUN Creatinine Glucose POC Glucose 138 H 202 H Lactic Acid Calcium Phosphorus Magnesium Total Bilirubin AST ALT Alkaline Phosphatase Total Protein Albumin Triglycerides Arterial Blood Glucose 181 H Arterial Blood Ionized Calcium 4.3 L Digoxin Crossmatch 01/07/21 01/07/21 01/07/21 04:50 05:21 08:37 WBC 12.4 H RBC Hgb 11.1 L Hct 33.3 L D MCV MCHC RDW 17.0 H Plt Count Lymph % (Auto) 3.2 L [place] % (Auto) 9.4 H Lymph # (Auto) 0.4 L [place] # (Auto) 1.2 H Seg Neutrophils % 86.6 H Seg Neuts % (Manual) Lymphocytes % (Manual) Monocytes % (Manual) Seg Neutrophils # 10.7 H Seg Neutrophils # Man Lymphocytes # (Manual) Monocytes # (Manual) PT INR ABG pH POC ABG pCO2 POC ABG pO2 ABG pO2 ABG HCO3 ABG O2 Saturation ABG Base Excess ABG Hemoglobin ABG Oxyhemoglobin ABG Sodium ABG Potassium ABG Chloride ABG Glucose Oxyhemoglobin Sodium Potassium Chloride Carbon Dioxide BUN 60 H Creatinine 6.3 H Glucose 154 H POC Glucose 177 H Lactic Acid Calcium 8.3 L Phosphorus Magnesium Total Bilirubin AST ALT Alkaline Phosphatase Total Protein Albumin Triglycerides Arterial Blood Glucose Arterial Blood Ionized Calcium Digoxin Crossmatch 01/07/21 01/07/21 01/07/21 11:21 12:19 17:11 WBC RBC Hgb Hct MCV MCHC RDW Plt Count Lymph % (Auto) [place] % (Auto) Lymph # (Auto) [place] # (Auto) Seg Neutrophils % Seg Neuts % (Manual) Lymphocytes % (Manual) Monocytes % (Manual) Seg Neutrophils # Seg Neutrophils # Man Lymphocytes # (Manual) Monocytes # (Manual) PT INR ABG pH POC ABG pCO2 POC ABG pO2 ABG pO2 ABG HCO3 ABG O2 Saturation ABG Base Excess ABG Hemoglobin ABG Oxyhemoglobin ABG Sodium ABG Potassium ABG Chloride ABG Glucose Oxyhemoglobin Sodium Potassium Chloride Carbon Dioxide BUN Creatinine Glucose POC Glucose 144 H 137 H 119 H Lactic Acid Calcium Phosphorus Magnesium Total Bilirubin AST ALT Alkaline Phosphatase Total Protein Albumin Triglycerides Arterial Blood Glucose Arterial Blood Ionized Calcium Digoxin Crossmatch 01/07/21 01/07/21 01/08/21 17:14 23:39 04:34 WBC RBC Hgb Hct MCV MCHC RDW Plt Count Lymph % (Auto) [place] % (Auto) Lymph # (Auto) [place] # (Auto) Seg Neutrophils % Seg Neuts % (Manual) Lymphocytes % (Manual) Monocytes % (Manual) Seg Neutrophils # Seg Neutrophils # Man Lymphocytes # (Manual) Monocytes # (Manual) PT INR ABG pH 7.345 L POC ABG pCO2 POC ABG pO2 ABG pO2 67.4 L ABG HCO3 ABG O2 Saturation 94.3 L ABG Base Excess -3.9 L ABG Hemoglobin 8.9 L ABG Oxyhemoglobin ABG Sodium ABG Potassium ABG Chloride ABG Glucose Oxyhemoglobin 92.3 L Sodium Potassium Chloride Carbon Dioxide 20 L BUN 93 H Creatinine 8.8 H Glucose 120 H POC Glucose 129 H Lactic Acid Calcium Phosphorus Magnesium Total Bilirubin AST ALT Alkaline Phosphatase 133 H Total Protein 5.4 L Albumin 1.9 L Triglycerides Arterial Blood Glucose Arterial Blood Ionized Calcium Digoxin Crossmatch 01/08/21 01/08/21 01/08/21 05:26 11:38 17:19 WBC RBC Hgb Hct MCV MCHC RDW Plt Count Lymph % (Auto) [place] % (Auto) Lymph # (Auto) [place] # (Auto) Seg Neutrophils % Seg Neuts % (Manual) Lymphocytes % (Manual) Monocytes % (Manual) Seg Neutrophils # Seg Neutrophils # Man Lymphocytes # (Manual) Monocytes # (Manual) PT INR ABG pH POC ABG pCO2 POC ABG pO2 ABG pO2 ABG HCO3 ABG O2 Saturation ABG Base Excess ABG Hemoglobin ABG Oxyhemoglobin ABG Sodium ABG Potassium ABG Chloride ABG Glucose Oxyhemoglobin Sodium Potassium Chloride Carbon Dioxide BUN Creatinine Glucose POC Glucose 125 H 146 H 136 H Lactic Acid Calcium Phosphorus Magnesium Total Bilirubin AST ALT Alkaline Phosphatase Total Protein Albumin Triglycerides Arterial Blood Glucose Arterial Blood Ionized Calcium Digoxin Crossmatch 01/08/21 01/09/21 01/09/21 23:52 05:13 05:21 WBC RBC Hgb Hct MCV MCHC RDW Plt Count Lymph % (Auto) [place] % (Auto) Lymph # (Auto) [place] # (Auto) Seg Neutrophils % Seg Neuts % (Manual) Lymphocytes % (Manual) Monocytes % (Manual) Seg Neutrophils # Seg Neutrophils # Man Lymphocytes # (Manual) Monocytes # (Manual) PT INR ABG pH POC ABG pCO2 POC ABG pO2 ABG pO2 ABG HCO3 ABG O2 Saturation ABG Base Excess ABG Hemoglobin ABG Oxyhemoglobin ABG Sodium ABG Potassium ABG Chloride ABG Glucose Oxyhemoglobin Sodium Potassium Chloride Carbon Dioxide 16 L BUN 123 H Creatinine 10.8 H Glucose 145 H POC Glucose 143 H 144 H Lactic Acid Calcium Phosphorus 5.00 H D Magnesium 2.40 H Total Bilirubin AST ALT Alkaline Phosphatase Total Protein Albumin Triglycerides Arterial Blood Glucose Arterial Blood Ionized Calcium Digoxin Crossmatch 01/09/21 01/09/21 01/09/21 12:08 17:20 23:56 WBC RBC Hgb Hct MCV MCHC RDW Plt Count Lymph % (Auto) [place] % (Auto) Lymph # (Auto) [place] # (Auto) Seg Neutrophils % Seg Neuts % (Manual) Lymphocytes % (Manual) Monocytes % (Manual) Seg Neutrophils # Seg Neutrophils # Man Lymphocytes # (Manual) Monocytes # (Manual) PT INR ABG pH POC ABG pCO2 POC ABG pO2 ABG pO2 ABG HCO3 ABG O2 Saturation ABG Base Excess ABG Hemoglobin ABG Oxyhemoglobin ABG Sodium ABG Potassium ABG Chloride ABG Glucose Oxyhemoglobin Sodium Potassium Chloride Carbon Dioxide BUN Creatinine Glucose POC Glucose 153 H 160 H 158 H Lactic Acid Calcium Phosphorus Magnesium Total Bilirubin AST ALT Alkaline Phosphatase Total Protein Albumin Triglycerides Arterial Blood Glucose Arterial Blood Ionized Calcium Digoxin Crossmatch 01/10/21 01/10/21 01/10/21 04:52 05:44 07:41 WBC RBC Hgb Hct MCV MCHC RDW Plt Count Lymph % (Auto) [place] % (Auto) Lymph # (Auto) [place] # (Auto) Seg Neutrophils % Seg Neuts % (Manual) Lymphocytes % (Manual) Monocytes % (Manual) Seg Neutrophils # Seg Neutrophils # Man Lymphocytes # (Manual) Monocytes # (Manual) PT INR ABG pH POC ABG pCO2 POC ABG pO2 ABG pO2 ABG HCO3 ABG O2 Saturation ABG Base Excess ABG Hemoglobin ABG Oxyhemoglobin ABG Sodium ABG Potassium ABG Chloride ABG Glucose Oxyhemoglobin Sodium 135 L Potassium 3.5 L D Chloride 95.0 L Carbon Dioxide 21 L BUN 93 H Creatinine 8.3 H Glucose 127 H POC Glucose 135 H 157 H Lactic Acid Calcium Phosphorus Magnesium Total Bilirubin AST ALT Alkaline Phosphatase Total Protein Albumin Triglycerides Arterial Blood Glucose Arterial Blood Ionized Calcium Digoxin Crossmatch 01/10/21 01/10/21 01/10/21 09:26 12:03 17:44 WBC 18.2 H RBC 3.14 L Hgb 9.7 L Hct 28.2 L MCV MCHC RDW 16.5 H Plt Count Lymph % (Auto) [place] % (Auto) Lymph # (Auto) [place] # (Auto) Seg Neutrophils % Seg Neuts % (Manual) 95.0 H Lymphocytes % (Manual) 3.0 L Monocytes % (Manual) Seg Neutrophils # Seg Neutrophils # Man 17.3 H Lymphocytes # (Manual) 0.5 L Monocytes # (Manual) PT INR ABG pH POC ABG pCO2 POC ABG pO2 ABG pO2 ABG HCO3 ABG O2 Saturation ABG Base Excess ABG Hemoglobin ABG Oxyhemoglobin ABG Sodium ABG Potassium ABG Chloride ABG Glucose Oxyhemoglobin Sodium Potassium Chloride Carbon Dioxide BUN Creatinine Glucose POC Glucose 163 H 171 H Lactic Acid Calcium Phosphorus Magnesium Total Bilirubin AST ALT Alkaline Phosphatase Total Protein Albumin Triglycerides Arterial Blood Glucose Arterial Blood Ionized Calcium Digoxin Crossmatch 01/10/21 01/11/21 01/11/21 23:50 05:18 05:18 WBC RBC Hgb Hct MCV MCHC RDW Plt Count Lymph % (Auto) [place] % (Auto) Lymph # (Auto) [place] # (Auto) Seg Neutrophils % Seg Neuts % (Manual) Lymphocytes % (Manual) Monocytes % (Manual) Seg Neutrophils # Seg Neutrophils # Man Lymphocytes # (Manual) Monocytes # (Manual) PT INR ABG pH POC ABG pCO2 POC ABG pO2 ABG pO2 ABG HCO3 ABG O2 Saturation ABG Base Excess ABG Hemoglobin ABG Oxyhemoglobin ABG Sodium ABG Potassium ABG Chloride ABG Glucose Oxyhemoglobin Sodium 136 L Potassium Chloride 94.6 L Carbon Dioxide 19 L BUN 145 H Creatinine 10.6 H Glucose 152 H POC Glucose 151 H Lactic Acid Calcium Phosphorus 6.00 H D Magnesium Total Bilirubin AST ALT Alkaline Phosphatase Total Protein Albumin Triglycerides Arterial Blood Glucose Arterial Blood Ionized Calcium Digoxin 0.8 L Crossmatch 01/11/21 01/11/21 01/11/21 05:18 05:19 11:28 WBC 17.4 H RBC 3.34 L Hgb 10.2 L Hct 29.7 L MCV MCHC RDW 15.9 H Plt Count Lymph % (Auto) [place] % (Auto) Lymph # (Auto) [place] # (Auto) Seg Neutrophils % Seg Neuts % (Manual) Lymphocytes % (Manual) Monocytes % (Manual) Seg Neutrophils # Seg Neutrophils # Man Lymphocytes # (Manual) Monocytes # (Manual) PT INR ABG pH POC ABG pCO2 POC ABG pO2 ABG pO2 ABG HCO3 ABG O2 Saturation ABG Base Excess ABG Hemoglobin ABG Oxyhemoglobin ABG Sodium ABG Potassium ABG Chloride ABG Glucose Oxyhemoglobin Sodium Potassium Chloride Carbon Dioxide BUN Creatinine Glucose POC Glucose 149 H 178 H Lactic Acid Calcium Phosphorus Magnesium Total Bilirubin AST ALT Alkaline Phosphatase Total Protein Albumin Triglycerides Arterial Blood Glucose Arterial Blood Ionized Calcium Digoxin Crossmatch 01/11/21 01/11/21 01/12/21 17:31 23:14 05:18 WBC RBC Hgb Hct MCV MCHC RDW Plt Count Lymph % (Auto) [place] % (Auto) Lymph # (Auto) [place] # (Auto) Seg Neutrophils % Seg Neuts % (Manual) Lymphocytes % (Manual) Monocytes % (Manual) Seg Neutrophils # Seg Neutrophils # Man Lymphocytes # (Manual) Monocytes # (Manual) PT INR ABG pH POC ABG pCO2 POC ABG pO2 ABG pO2 ABG HCO3 ABG O2 Saturation ABG Base Excess ABG Hemoglobin ABG Oxyhemoglobin ABG Sodium ABG Potassium ABG Chloride ABG Glucose Oxyhemoglobin Sodium Potassium Chloride Carbon Dioxide BUN Creatinine Glucose POC Glucose 158 H 145 H 148 H Lactic Acid Calcium Phosphorus Magnesium Total Bilirubin AST ALT Alkaline Phosphatase Total Protein Albumin Triglycerides Arterial Blood Glucose Arterial Blood Ionized Calcium Digoxin Crossmatch 01/12/21 01/12/21 01/12/21 06:50 10:45 13:34 WBC RBC Hgb Hct MCV MCHC RDW Plt Count Lymph % (Auto) [place] % (Auto) Lymph # (Auto) [place] # (Auto) Seg Neutrophils % Seg Neuts % (Manual) Lymphocytes % (Manual) Monocytes % (Manual) Seg Neutrophils # Seg Neutrophils # Man Lymphocytes # (Manual) Monocytes # (Manual) PT INR ABG pH POC ABG pCO2 POC ABG pO2 ABG pO2 ABG HCO3 ABG O2 Saturation ABG Base Excess ABG Hemoglobin ABG Oxyhemoglobin ABG Sodium ABG Potassium ABG Chloride ABG Glucose Oxyhemoglobin Sodium Potassium 2.9 L* D Chloride 94.8 L Carbon Dioxide BUN 102 H Creatinine 8.3 H Glucose 139 H POC Glucose 151 H 134 H Lactic Acid Calcium 8.1 L Phosphorus 5.00 H Magnesium Total Bilirubin AST ALT Alkaline Phosphatase Total Protein Albumin Triglycerides Arterial Blood Glucose Arterial Blood Ionized Calcium Digoxin Crossmatch 01/12/21 01/12/21 01/13/21 16:59 23:06 03:45 WBC RBC Hgb Hct MCV MCHC RDW Plt Count Lymph % (Auto) [place] % (Auto) Lymph # (Auto) [place] # (Auto) Seg Neutrophils % Seg Neuts % (Manual) Lymphocytes % (Manual) Monocytes % (Manual) Seg Neutrophils # Seg Neutrophils # Man Lymphocytes # (Manual) Monocytes # (Manual) PT INR ABG pH POC ABG pCO2 POC ABG pO2 ABG pO2 ABG HCO3 ABG O2 Saturation ABG Base Excess ABG Hemoglobin ABG Oxyhemoglobin ABG Sodium ABG Potassium ABG Chloride ABG Glucose Oxyhemoglobin Sodium 136 L Potassium 3.4 L Chloride 92.6 L Carbon Dioxide BUN 134 H Creatinine 10.4 H Glucose 126 H POC Glucose 108 H 135 H Lactic Acid Calcium 8.3 L Phosphorus 5.60 H Magnesium 1.50 L Total Bilirubin AST ALT Alkaline Phosphatase Total Protein Albumin Triglycerides Arterial Blood Glucose Arterial Blood Ionized Calcium Digoxin Crossmatch 01/13/21 01/13/21 01/13/21 03:45 05:55 11:59 WBC 17.6 H RBC 3.33 L Hgb 10.2 L Hct 29.5 L MCV MCHC 35 H RDW 15.5 H Plt Count Lymph % (Auto) 4.4 L [place] % (Auto) 10.3 H Lymph # (Auto) 0.8 L [place] # (Auto) 1.8 H Seg Neutrophils % 84.2 H Seg Neuts % (Manual) Lymphocytes % (Manual) Monocytes % (Manual) Seg Neutrophils # 14.8 H Seg Neutrophils # Man Lymphocytes # (Manual) Monocytes # (Manual) PT INR ABG pH POC ABG pCO2 POC ABG pO2 ABG pO2 ABG HCO3 ABG O2 Saturation ABG Base Excess ABG Hemoglobin ABG Oxyhemoglobin ABG Sodium ABG Potassium ABG Chloride ABG Glucose Oxyhemoglobin Sodium Potassium Chloride Carbon Dioxide BUN Creatinine Glucose POC Glucose 134 H 141 H Lactic Acid Calcium Phosphorus Magnesium Total Bilirubin AST ALT Alkaline Phosphatase Total Protein Albumin Triglycerides Arterial Blood Glucose Arterial Blood Ionized Calcium Digoxin Crossmatch 01/13/21 01/14/21 01/14/21 23:09 05:39 05:57 WBC RBC Hgb Hct MCV MCHC RDW Plt Count Lymph % (Auto) [place] % (Auto) Lymph # (Auto) [place] # (Auto) Seg Neutrophils % Seg Neuts % (Manual) Lymphocytes % (Manual) Monocytes % (Manual) Seg Neutrophils # Seg Neutrophils # Man Lymphocytes # (Manual) Monocytes # (Manual) PT INR ABG pH POC ABG pCO2 POC ABG pO2 ABG pO2 ABG HCO3 ABG O2 Saturation ABG Base Excess ABG Hemoglobin ABG Oxyhemoglobin ABG Sodium ABG Potassium ABG Chloride ABG Glucose Oxyhemoglobin Sodium Potassium Chloride 97.6 L Carbon Dioxide BUN 81 H Creatinine 7.6 H Glucose 193 H POC Glucose 106 H 190 H Lactic Acid Calcium 8.2 L Phosphorus 4.60 H Magnesium Total Bilirubin AST ALT Alkaline Phosphatase Total Protein Albumin Triglycerides Arterial Blood Glucose Arterial Blood Ionized Calcium Digoxin Crossmatch 01/14/21 01/14/21 01/14/21 10:00 16:56 16:59 WBC 17.0 H RBC 3.10 L Hgb 9.6 L Hct 27.4 L MCV MCHC 35 H RDW 15.6 H Plt Count Lymph % (Auto) [place] % (Auto) Lymph # (Auto) [place] # (Auto) Seg Neutrophils % Seg Neuts % (Manual) Lymphocytes % (Manual) Monocytes % (Manual) Seg Neutrophils # Seg Neutrophils # Man Lymphocytes # (Manual) Monocytes # (Manual) PT INR ABG pH POC ABG pCO2 POC ABG pO2 ABG pO2 ABG HCO3 ABG O2 Saturation ABG Base Excess ABG Hemoglobin ABG Oxyhemoglobin ABG Sodium ABG Potassium ABG Chloride ABG Glucose Oxyhemoglobin Sodium Potassium Chloride Carbon Dioxide BUN Creatinine Glucose POC Glucose 37 L 34 L Lactic Acid Calcium Phosphorus Magnesium Total Bilirubin AST ALT Alkaline Phosphatase Total Protein Albumin Triglycerides Arterial Blood Glucose Arterial Blood Ionized Calcium Digoxin Crossmatch 01/14/21 01/14/21 01/14/21 17:02 18:34 23:17 WBC RBC Hgb Hct MCV MCHC RDW Plt Count Lymph % (Auto) [place] % (Auto) Lymph # (Auto) [place] # (Auto) Seg Neutrophils % Seg Neuts % (Manual) Lymphocytes % (Manual) Monocytes % (Manual) Seg Neutrophils # Seg Neutrophils # Man Lymphocytes # (Manual) Monocytes # (Manual) PT INR ABG pH POC ABG pCO2 POC ABG pO2 ABG pO2 ABG HCO3 ABG O2 Saturation ABG Base Excess ABG Hemoglobin ABG Oxyhemoglobin ABG Sodium ABG Potassium ABG Chloride ABG Glucose Oxyhemoglobin Sodium Potassium Chloride Carbon Dioxide BUN Creatinine Glucose POC Glucose 35 L 143 H 53 L Lactic Acid Calcium Phosphorus Magnesium Total Bilirubin AST ALT Alkaline Phosphatase Total Protein Albumin Triglycerides Arterial Blood Glucose Arterial Blood Ionized Calcium Digoxin Crossmatch 01/15/21 01/15/21 01/15/21 00:34 04:00 04:00 WBC 15.9 H RBC 3.02 L Hgb 9.3 L Hct 27.3 L MCV MCHC RDW 15.6 H Plt Count Lymph % (Auto) [place] % (Auto) Lymph # (Auto) [place] # (Auto) Seg Neutrophils % Seg Neuts % (Manual) Lymphocytes % (Manual) Monocytes % (Manual) Seg Neutrophils # Seg Neutrophils # Man Lymphocytes # (Manual) Monocytes # (Manual) PT INR ABG pH POC ABG pCO2 POC ABG pO2 ABG pO2 ABG HCO3 ABG O2 Saturation ABG Base Excess ABG Hemoglobin ABG Oxyhemoglobin ABG Sodium ABG Potassium ABG Chloride ABG Glucose Oxyhemoglobin Sodium 136 L Potassium Chloride 94.3 L Carbon Dioxide BUN 117 H Creatinine 9.9 H Glucose 217 H POC Glucose 181 H Lactic Acid Calcium 8.3 L Phosphorus Magnesium Total Bilirubin AST ALT Alkaline Phosphatase Total Protein Albumin Triglycerides Arterial Blood Glucose Arterial Blood Ionized Calcium Digoxin Crossmatch 01/15/21 01/15/21 01/15/21 05:29 11:51 23:13 WBC RBC Hgb Hct MCV MCHC RDW Plt Count Lymph % (Auto) [place] % (Auto) Lymph # (Auto) [place] # (Auto) Seg Neutrophils % Seg Neuts % (Manual) Lymphocytes % (Manual) Monocytes % (Manual) Seg Neutrophils # Seg Neutrophils # Man Lymphocytes # (Manual) Monocytes # (Manual) PT INR ABG pH POC ABG pCO2 POC ABG pO2 ABG pO2 ABG HCO3 ABG O2 Saturation ABG Base Excess ABG Hemoglobin ABG Oxyhemoglobin ABG Sodium ABG Potassium ABG Chloride ABG Glucose Oxyhemoglobin Sodium Potassium Chloride Carbon Dioxide BUN Creatinine Glucose POC Glucose 221 H 62 L 154 H Lactic Acid Calcium Phosphorus Magnesium Total Bilirubin AST ALT Alkaline Phosphatase Total Protein Albumin Triglycerides Arterial Blood Glucose Arterial Blood Ionized Calcium Digoxin Crossmatch 01/16/21 01/16/21 01/16/21 05:04 06:44 06:44 WBC 14.8 H RBC 2.76 L Hgb 8.2 L Hct 24.8 L MCV MCHC RDW 15.6 H Plt Count Lymph % (Auto) [place] % (Auto) Lymph # (Auto) [place] # (Auto) Seg Neutrophils % Seg Neuts % (Manual) Lymphocytes % (Manual) Monocytes % (Manual) Seg Neutrophils # Seg Neutrophils # Man Lymphocytes # (Manual) Monocytes # (Manual) PT INR ABG pH POC ABG pCO2 POC ABG pO2 ABG pO2 ABG HCO3 ABG O2 Saturation ABG Base Excess ABG Hemoglobin ABG Oxyhemoglobin ABG Sodium ABG Potassium ABG Chloride ABG Glucose Oxyhemoglobin Sodium 133 L Potassium Chloride 92.3 L Carbon Dioxide 20 L BUN 160 H Creatinine 12.1 H Glucose 177 H POC Glucose 168 H Lactic Acid Calcium 8.1 L Phosphorus 5.50 H Magnesium 2.50 H Total Bilirubin AST ALT Alkaline Phosphatase Total Protein Albumin Triglycerides Arterial Blood Glucose Arterial Blood Ionized Calcium Digoxin Crossmatch 01/16/21 01/17/21 01/17/21 23:20 05:14 05:14 WBC 12.7 H RBC 2.75 L Hgb 8.5 L Hct 24.6 L MCV MCHC 35 H RDW 15.4 H Plt Count Lymph % (Auto) [place] % (Auto) Lymph # (Auto) [place] # (Auto) Seg Neutrophils % Seg Neuts % (Manual) Lymphocytes % (Manual) Monocytes % (Manual) Seg Neutrophils # Seg Neutrophils # Man Lymphocytes # (Manual) Monocytes # (Manual) PT INR ABG pH POC ABG pCO2 POC ABG pO2 ABG pO2 ABG HCO3 ABG O2 Saturation ABG Base Excess ABG Hemoglobin ABG Oxyhemoglobin ABG Sodium ABG Potassium ABG Chloride ABG Glucose Oxyhemoglobin Sodium Potassium Chloride 97.9 L Carbon Dioxide BUN 84 H Creatinine 7.8 H Glucose 176 H POC Glucose 153 H Lactic Acid Calcium 8.0 L Phosphorus Magnesium Total Bilirubin AST ALT Alkaline Phosphatase Total Protein Albumin Triglycerides Arterial Blood Glucose Arterial Blood Ionized Calcium Digoxin Crossmatch 01/17/21 01/17/21 01/18/21 05:33 11:58 00:07 WBC RBC Hgb Hct MCV MCHC RDW Plt Count Lymph % (Auto) [place] % (Auto) Lymph # (Auto) [place] # (Auto) Seg Neutrophils % Seg Neuts % (Manual) Lymphocytes % (Manual) Monocytes % (Manual) Seg Neutrophils # Seg Neutrophils # Man Lymphocytes # (Manual) Monocytes # (Manual) PT INR ABG pH POC ABG pCO2 POC ABG pO2 ABG pO2 ABG HCO3 ABG O2 Saturation ABG Base Excess ABG Hemoglobin ABG Oxyhemoglobin ABG Sodium ABG Potassium ABG Chloride ABG Glucose Oxyhemoglobin Sodium Potassium Chloride Carbon Dioxide BUN Creatinine Glucose POC Glucose 162 H 64 L 146 H Lactic Acid Calcium Phosphorus Magnesium Total Bilirubin AST ALT Alkaline Phosphatase Total Protein Albumin Triglycerides Arterial Blood Glucose Arterial Blood Ionized Calcium Digoxin Crossmatch 01/18/21 01/18/21 01/18/21 04:19 04:19 06:15 WBC 15.6 H RBC 3.00 L Hgb 9.2 L Hct 26.8 L MCV MCHC 35 H RDW 15.6 H Plt Count Lymph % (Auto) [place] % (Auto) Lymph # (Auto) [place] # (Auto) Seg Neutrophils % Seg Neuts % (Manual) Lymphocytes % (Manual) Monocytes % (Manual) Seg Neutrophils # Seg Neutrophils # Man Lymphocytes # (Manual) Monocytes # (Manual) PT INR ABG pH POC ABG pCO2 POC ABG pO2 ABG pO2 ABG HCO3 ABG O2 Saturation ABG Base Excess ABG Hemoglobin ABG Oxyhemoglobin ABG Sodium ABG Potassium ABG Chloride ABG Glucose Oxyhemoglobin Sodium Potassium Chloride 96.2 L Carbon Dioxide BUN 117 H Creatinine 10.0 H Glucose 165 H POC Glucose 189 H Lactic Acid Calcium Phosphorus 4.70 H D Magnesium Total Bilirubin AST ALT Alkaline Phosphatase Total Protein Albumin Triglycerides Arterial Blood Glucose Arterial Blood Ionized Calcium Digoxin Crossmatch 01/18/21 01/18/21 01/18/21 11:53 13:44 15:08 WBC RBC Hgb Hct MCV MCHC RDW Plt Count Lymph % (Auto) [place] % (Auto) Lymph # (Auto) [place] # (Auto) Seg Neutrophils % Seg Neuts % (Manual) Lymphocytes % (Manual) Monocytes % (Manual) Seg Neutrophils # Seg Neutrophils # Man Lymphocytes # (Manual) Monocytes # (Manual) PT INR ABG pH POC ABG pCO2 POC ABG pO2 ABG pO2 ABG HCO3 ABG O2 Saturation ABG Base Excess ABG Hemoglobin ABG Oxyhemoglobin ABG Sodium ABG Potassium ABG Chloride ABG Glucose Oxyhemoglobin Sodium Potassium Chloride Carbon Dioxide BUN Creatinine Glucose POC Glucose 69 L 50 L 56 L Lactic Acid Calcium Phosphorus Magnesium Total Bilirubin AST ALT Alkaline Phosphatase Total Protein Albumin Triglycerides Arterial Blood Glucose Arterial Blood Ionized Calcium Digoxin Crossmatch 01/18/21 01/19/21 01/19/21 17:50 04:55 08:56 WBC 12.7 H RBC 2.89 L Hgb 8.7 L Hct 25.6 L MCV MCHC RDW 15.5 H Plt Count Lymph % (Auto) [place] % (Auto) Lymph # (Auto) [place] # (Auto) Seg Neutrophils % Seg Neuts % (Manual) Lymphocytes % (Manual) Monocytes % (Manual) Seg Neutrophils # Seg Neutrophils # Man Lymphocytes # (Manual) Monocytes # (Manual) PT INR ABG pH POC ABG pCO2 POC ABG pO2 ABG pO2 ABG HCO3 ABG O2 Saturation ABG Base Excess ABG Hemoglobin ABG Oxyhemoglobin ABG Sodium ABG Potassium ABG Chloride ABG Glucose Oxyhemoglobin Sodium Potassium Chloride Carbon Dioxide BUN Creatinine Glucose POC Glucose 137 H 120 H Lactic Acid Calcium Phosphorus Magnesium Total Bilirubin AST ALT Alkaline Phosphatase Total Protein Albumin Triglycerides Arterial Blood Glucose Arterial Blood Ionized Calcium Digoxin Crossmatch 01/19/21 01/19/21 01/19/21 08:56 11:33 17:32 WBC RBC Hgb Hct MCV MCHC RDW Plt Count Lymph % (Auto) [place] % (Auto) Lymph # (Auto) [place] # (Auto) Seg Neutrophils % Seg Neuts % (Manual) Lymphocytes % (Manual) Monocytes % (Manual) Seg Neutrophils # Seg Neutrophils # Man Lymphocytes # (Manual) Monocytes # (Manual) PT INR ABG pH POC ABG pCO2 POC ABG pO2 ABG pO2 ABG HCO3 ABG O2 Saturation ABG Base Excess ABG Hemoglobin ABG Oxyhemoglobin ABG Sodium ABG Potassium ABG Chloride ABG Glucose Oxyhemoglobin Sodium Potassium Chloride Carbon Dioxide BUN 66 H Creatinine 7.7 H Glucose 119 H POC Glucose 160 H 125 H Lactic Acid Calcium 8.3 L Phosphorus Magnesium Total Bilirubin AST ALT Alkaline Phosphatase Total Protein Albumin Triglycerides Arterial Blood Glucose Arterial Blood Ionized Calcium Digoxin Crossmatch 01/19/21 01/20/21 01/20/21 23:30 03:35 03:35 WBC 12.0 H RBC 2.62 L Hgb 8.3 L Hct 23.2 L MCV MCHC 36 H RDW Plt Count Lymph % (Auto) [place] % (Auto) Lymph # (Auto) [place] # (Auto) Seg Neutrophils % Seg Neuts % (Manual) Lymphocytes % (Manual) Monocytes % (Manual) Seg Neutrophils # Seg Neutrophils # Man Lymphocytes # (Manual) Monocytes # (Manual) PT INR ABG pH POC ABG pCO2 POC ABG pO2 ABG pO2 ABG HCO3 ABG O2 Saturation ABG Base Excess ABG Hemoglobin ABG Oxyhemoglobin ABG Sodium ABG Potassium ABG Chloride ABG Glucose Oxyhemoglobin Sodium Potassium Chloride Carbon Dioxide BUN 46 H Creatinine 5.9 H Glucose 128 H POC Glucose 127 H Lactic Acid Calcium Phosphorus Magnesium Total Bilirubin AST ALT Alkaline Phosphatase Total Protein Albumin Triglycerides Arterial Blood Glucose Arterial Blood Ionized Calcium Digoxin Crossmatch 01/20/21 01/20/21 01/20/21 06:19 11:55 18:00 WBC RBC Hgb Hct MCV MCHC RDW Plt Count Lymph % (Auto) [place] % (Auto) Lymph # (Auto) [place] # (Auto) Seg Neutrophils % Seg Neuts % (Manual) Lymphocytes % (Manual) Monocytes % (Manual) Seg Neutrophils # Seg Neutrophils # Man Lymphocytes # (Manual) Monocytes # (Manual) PT INR ABG pH POC ABG pCO2 POC ABG pO2 ABG pO2 ABG HCO3 ABG O2 Saturation ABG Base Excess ABG Hemoglobin ABG Oxyhemoglobin ABG Sodium ABG Potassium ABG Chloride ABG Glucose Oxyhemoglobin Sodium Potassium Chloride Carbon Dioxide BUN Creatinine Glucose POC Glucose 119 H 128 H 115 H Lactic Acid Calcium Phosphorus Magnesium Total Bilirubin AST ALT Alkaline Phosphatase Total Protein Albumin Triglycerides Arterial Blood Glucose Arterial Blood Ionized Calcium Digoxin Crossmatch 01/20/21 01/21/21 01/21/21 23:26 04:39 05:27 WBC RBC Hgb Hct MCV MCHC RDW Plt Count Lymph % (Auto) [place] % (Auto) Lymph # (Auto) [place] # (Auto) Seg Neutrophils % Seg Neuts % (Manual) Lymphocytes % (Manual) Monocytes % (Manual) Seg Neutrophils # Seg Neutrophils # Man Lymphocytes # (Manual) Monocytes # (Manual) PT INR ABG pH POC ABG pCO2 POC ABG pO2 ABG pO2 ABG HCO3 ABG O2 Saturation ABG Base Excess ABG Hemoglobin ABG Oxyhemoglobin ABG Sodium ABG Potassium ABG Chloride ABG Glucose Oxyhemoglobin Sodium Potassium Chloride Carbon Dioxide BUN 37 H Creatinine 5.3 H Glucose 109 H POC Glucose 108 H 107 H Lactic Acid Calcium Phosphorus 2.10 L Magnesium 1.50 L Total Bilirubin AST ALT Alkaline Phosphatase 143 H Total Protein 6.1 L Albumin 3.0 L Triglycerides Arterial Blood Glucose Arterial Blood Ionized Calcium Digoxin Crossmatch 01/21/21 01/21/21 01/22/21 11:35 17:53 00:20 WBC RBC Hgb Hct MCV MCHC RDW Plt Count Lymph % (Auto) [place] % (Auto) Lymph # (Auto) [place] # (Auto) Seg Neutrophils % Seg Neuts % (Manual) Lymphocytes % (Manual) Monocytes % (Manual) Seg Neutrophils # Seg Neutrophils # Man Lymphocytes # (Manual) Monocytes # (Manual) PT INR ABG pH POC ABG pCO2 POC ABG pO2 ABG pO2 ABG HCO3 ABG O2 Saturation ABG Base Excess ABG Hemoglobin ABG Oxyhemoglobin ABG Sodium ABG Potassium ABG Chloride ABG Glucose Oxyhemoglobin Sodium Potassium Chloride Carbon Dioxide BUN Creatinine Glucose POC Glucose 133 H 124 H 122 H Lactic Acid Calcium Phosphorus Magnesium Total Bilirubin AST ALT Alkaline Phosphatase Total Protein Albumin Triglycerides Arterial Blood Glucose Arterial Blood Ionized Calcium Digoxin Crossmatch 01/22/21 01/22/21 01/22/21 04:00 06:09 11:36 WBC RBC Hgb Hct MCV MCHC RDW Plt Count Lymph % (Auto) [place] % (Auto) Lymph # (Auto) [place] # (Auto) Seg Neutrophils % Seg Neuts % (Manual) Lymphocytes % (Manual) Monocytes % (Manual) Seg Neutrophils # Seg Neutrophils # Man Lymphocytes # (Manual) Monocytes # (Manual) PT INR ABG pH POC ABG pCO2 POC ABG pO2 ABG pO2 ABG HCO3 ABG O2 Saturation ABG Base Excess ABG Hemoglobin ABG Oxyhemoglobin ABG Sodium ABG Potassium ABG Chloride ABG Glucose Oxyhemoglobin Sodium Potassium Chloride Carbon Dioxide BUN 65 H Creatinine 8.2 H D Glucose 111 H POC Glucose 122 H 132 H Lactic Acid Calcium Phosphorus Magnesium Total Bilirubin AST ALT Alkaline Phosphatase Total Protein Albumin Triglycerides Arterial Blood Glucose Arterial Blood Ionized Calcium Digoxin Crossmatch 01/22/21 01/22/21 01/23/21 17:17 23:18 05:29 WBC RBC Hgb Hct MCV MCHC RDW Plt Count Lymph % (Auto) [place] % (Auto) Lymph # (Auto) [place] # (Auto) Seg Neutrophils % Seg Neuts % (Manual) Lymphocytes % (Manual) Monocytes % (Manual) Seg Neutrophils # Seg Neutrophils # Man Lymphocytes # (Manual) Monocytes # (Manual) PT INR ABG pH POC ABG pCO2 POC ABG pO2 ABG pO2 ABG HCO3 ABG O2 Saturation ABG Base Excess ABG Hemoglobin ABG Oxyhemoglobin ABG Sodium ABG Potassium ABG Chloride ABG Glucose Oxyhemoglobin Sodium Potassium Chloride Carbon Dioxide BUN Creatinine Glucose POC Glucose 135 H 128 H 129 H Lactic Acid Calcium Phosphorus Magnesium Total Bilirubin AST ALT Alkaline Phosphatase Total Protein Albumin Triglycerides Arterial Blood Glucose Arterial Blood Ionized Calcium Digoxin Crossmatch 01/23/21 01/23/21 01/23/21 05:45 11:28 16:39 WBC RBC Hgb Hct MCV MCHC RDW Plt Count Lymph % (Auto) [place] % (Auto) Lymph # (Auto) [place] # (Auto) Seg Neutrophils % Seg Neuts % (Manual) Lymphocytes % (Manual) Monocytes % (Manual) Seg Neutrophils # Seg Neutrophils # Man Lymphocytes # (Manual) Monocytes # (Manual) PT INR ABG pH POC ABG pCO2 POC ABG pO2 ABG pO2 ABG HCO3 ABG O2 Saturation ABG Base Excess ABG Hemoglobin ABG Oxyhemoglobin ABG Sodium ABG Potassium ABG Chloride ABG Glucose Oxyhemoglobin Sodium Potassium Chloride Carbon Dioxide BUN 96 H Creatinine 10.8 H Glucose 124 H POC Glucose 160 H 116 H Lactic Acid Calcium Phosphorus Magnesium 2.50 H Total Bilirubin AST ALT Alkaline Phosphatase Total Protein Albumin Triglycerides Arterial Blood Glucose Arterial Blood Ionized Calcium Digoxin Crossmatch 01/24/21 01/24/21 01/24/21 00:02 04:45 05:01 WBC RBC Hgb Hct MCV MCHC RDW Plt Count Lymph % (Auto) [place] % (Auto) Lymph # (Auto) [place] # (Auto) Seg Neutrophils % Seg Neuts % (Manual) Lymphocytes % (Manual) Monocytes % (Manual) Seg Neutrophils # Seg Neutrophils # Man Lymphocytes # (Manual) Monocytes # (Manual) PT INR ABG pH POC ABG pCO2 POC ABG pO2 ABG pO2 ABG HCO3 ABG O2 Saturation ABG Base Excess ABG Hemoglobin ABG Oxyhemoglobin ABG Sodium ABG Potassium ABG Chloride ABG Glucose Oxyhemoglobin Sodium Potassium 3.5 L Chloride Carbon Dioxide BUN 56 H Creatinine 7.7 H Glucose 102 H POC Glucose 120 H 108 H Lactic Acid Calcium Phosphorus Magnesium Total Bilirubin AST ALT Alkaline Phosphatase Total Protein Albumin Triglycerides Arterial Blood Glucose Arterial Blood Ionized Calcium Digoxin Crossmatch 01/24/21 01/24/21 01/24/21 12:03 17:07 23:55 WBC RBC Hgb Hct MCV MCHC RDW Plt Count Lymph % (Auto) [place] % (Auto) Lymph # (Auto) [place] # (Auto) Seg Neutrophils % Seg Neuts % (Manual) Lymphocytes % (Manual) Monocytes % (Manual) Seg Neutrophils # Seg Neutrophils # Man Lymphocytes # (Manual) Monocytes # (Manual) PT INR ABG pH POC ABG pCO2 POC ABG pO2 ABG pO2 ABG HCO3 ABG O2 Saturation ABG Base Excess ABG Hemoglobin ABG Oxyhemoglobin ABG Sodium ABG Potassium ABG Chloride ABG Glucose Oxyhemoglobin Sodium Potassium Chloride Carbon Dioxide BUN Creatinine Glucose POC Glucose 136 H 122 H 112 H Lactic Acid Calcium Phosphorus Magnesium Total Bilirubin AST ALT Alkaline Phosphatase Total Protein Albumin Triglycerides Arterial Blood Glucose Arterial Blood Ionized Calcium Digoxin Crossmatch 01/25/21 01/25/21 01/25/21 05:15 06:00 07:47 WBC RBC Hgb Hct MCV MCHC RDW Plt Count Lymph % (Auto) [place] % (Auto) Lymph # (Auto) [place] # (Auto) Seg Neutrophils % Seg Neuts % (Manual) Lymphocytes % (Manual) Monocytes % (Manual) Seg Neutrophils # Seg Neutrophils # Man Lymphocytes # (Manual) Monocytes # (Manual) PT INR ABG pH POC ABG pCO2 POC ABG pO2 ABG pO2 ABG HCO3 ABG O2 Saturation ABG Base Excess ABG Hemoglobin ABG Oxyhemoglobin ABG Sodium ABG Potassium ABG Chloride ABG Glucose Oxyhemoglobin Sodium 116 L* D Potassium Chloride 79.1 L Carbon Dioxide 17 L D BUN 72 H Creatinine 7.4 H Glucose 2242 H* POC Glucose 117 H 138 H Lactic Acid Calcium 6.7 L D Phosphorus Magnesium Total Bilirubin AST ALT Alkaline Phosphatase Total Protein Albumin Triglycerides Arterial Blood Glucose Arterial Blood Ionized Calcium Digoxin Crossmatch 01/25/21 08:35 WBC RBC Hgb Hct MCV MCHC RDW Plt Count Lymph % (Auto) [place] % (Auto) Lymph # (Auto) [place] # (Auto) Seg Neutrophils % Seg Neuts % (Manual) Lymphocytes % (Manual) Monocytes % (Manual) Seg Neutrophils # Seg Neutrophils # Man Lymphocytes # (Manual) Monocytes # (Manual) PT INR ABG pH POC ABG pCO2 POC ABG pO2 ABG pO2 ABG HCO3 ABG O2 Saturation ABG Base Excess ABG Hemoglobin ABG Oxyhemoglobin ABG Sodium ABG Potassium ABG Chloride ABG Glucose Oxyhemoglobin Sodium Potassium Chloride 97.0 L Carbon Dioxide BUN 92 H Creatinine 11.0 H Glucose 125 H POC Glucose Lactic Acid Calcium Phosphorus Magnesium Total Bilirubin AST ALT Alkaline Phosphatase Total Protein Albumin Triglycerides Arterial Blood Glucose Arterial Blood Ionized Calcium Digoxin Crossmatch Allied health notes reviewed: nursing
--- NOTE | 2021-01-25 16:02 | Progress Note ---
Assessment and Plan Assessment: * ESRD previouasly on peritoneal dialysis; now on back up HD (on peritoneal dialysis for 2 years) * Small bowel obstruction --s/p ex-lap with jejuno-ileal anastamosis --s/p ex lap with extensive lysis of adhesions and two small bowel resections with primary anastamosis for SBO with necrotic segment small bowel. --s/p ex lap, resection of perforated anastamosis, washout and abthera wound vac placement. --s/p ex lap with right hemicolectomy. * Acute respiratory failure * Septic shock - resolved * Bacteremia - resolved * Anemia of ESRD * Atrial fibrilation, new onset * Post op ileus Plan: * Continue HD MWF via left IJ permcath (12/27) * 3K bath with dialysis * UF as tolerated * Epogen 10k units w/ dialysis * Rate control per cardiology * Nutrition per primary team * Maintatin MAP >65 * Surgery notes reviewed * He will also require outpatient hemodialysis chair prior to discharge * Elevated BUN likely secondary to catabolic state. Dialysis time was increased to 4 hours. Subjective Date of service: 01/25/21 Principal diagnosis: Ac hypoxemic resp failure; Severe Sepsis; Peritonitis; Acute SBO; ESRD; CHF Interval history: In the ICU. Sitting up in chair. Receiving TPN. Objective - Exam Narrative Exam: General appearance: NAD Eyes: anicteric sclerae HENT: Normocephalic, Atraumatic Neck: supple, tracheal midline, no JVD Lungs: CTAB CV: RRR Abdomen: Soft, distended, periumbilical tenderness Extremities: no edema, no cyanosis Skin: No rash. Psych: Calm Neuro: Following commands - Vital Signs Vital signs: Vital Signs - 12hr 01/25/21 01/25/21 01/25/21 06:00 06:08 08:00 Temperature 98.8 F Pulse Rate 103 H 88 88 Pulse Rate [ 88 From Monitor] Respiratory 26 H 14 Rate Blood Pressure 170/86 170/86 168/76 O2 Sat by Pulse 95 96 Oximetry 01/25/21 01/25/21 01/25/21 09:42 09:43 10:00 Temperature Pulse Rate 83 80 74 Pulse Rate [ From Monitor] Respiratory 17 Rate Blood Pressure 173/82 173/82 172/86 O2 Sat by Pulse 90 Oximetry 01/25/21 01/25/21 01/25/21 11:35 12:00 14:01 Temperature 98.7 F Pulse Rate 81 82 94 H Pulse Rate [ 80 From Monitor] Respiratory 18 17 Rate Blood Pressure 155/73 160/84 161/84 O2 Sat by Pulse 99 Oximetry 01/25/21 01/25/21 01/25/21 14:55 15:15 15:30 Temperature Pulse Rate 82 83 94 H Pulse Rate [ From Monitor] Respiratory Rate Blood Pressure 161/85 160/70 143/76 O2 Sat by Pulse Oximetry 01/25/21 01/25/21 15:45 16:00 Temperature Pulse Rate 84 88 Pulse Rate [ From Monitor] Respiratory Rate Blood Pressure 149/75 143/80 O2 Sat by Pulse Oximetry - Lab 01/20/21 03:35 01/25/21 08:35 Most recent lab results ABG pH 7.345 pH Units (7.350-7.450) L 01/07/21 17:14 ABG pCO2 40.3 mm Hg 01/07/21 17:14 ABG pO2 67.4 mm Hg (80.0-90.0) L 01/07/21 17:14 ABG HCO3 21.5 mmol/L (20.0-26.0) 01/07/21 17:14 ABG O2 Saturation 94.3 % (95.0-99.0) L 01/07/21 17:14 Calcium 8.7 mg/dL (8.4-10.2) D 01/25/21 08:35 Phosphorus 2.60 mg/dL (2.5-4.5) 01/23/21 05:45 Magnesium 1.90 mg/dL (1.7-2.3) 01/24/21 04:45 Medications & Allergies - Medications Allergies/Adverse Reactions: Allergies No Known Allergies Allergy (Verified 06/09/20 15:27) Home Medications: Home Medications Medication Instructions Recorded Confirmed Last Taken Type Albuterol Mdi (or & Nicu Only) 2 puff IH QID PRN #1 inhalation 04/01/17 11/01/20 10/31/20 09:00 Rx [ProAir HFA Inhaler] Calcium Acetate 667 mg PO DAILY 04/20/20 11/01/20 10/31/20 09:00 History Centrum Men's Tablet 1 tab PO DAILY 04/20/20 11/01/20 10/31/20 09:00 History Cinacalcet 30 mg PO DAILY 04/20/20 11/01/20 10/31/20 09:00 History Dialyvite with Zinc Tablet 1 tab PO DAILY 04/20/20 11/01/20 10/31/20 09:00 History Magnesium 250 mg PO BID 04/20/20 11/01/20 10/31/20 17:00 History Triamcinolone 0.1% 1 1000units TRANSDERMA DAILY 04/20/20 11/01/20 10/31/20 09:00 History Vit B12/Folic Acid/B6/Aa No.15 1,000 mg PO DAILY 04/20/20 11/01/20 10/31/20 09:00 History amLODIPine 10 mg PO DAILY 06/09/20 11/01/20 10/31/20 09:00 History AtorvaSTATin 40 mg PO HS 11/01/20 11/01/20 10/31/20 21:00 History Benadryl 25 mg PO HS 11/01/20 11/01/20 10/31/20 21:00 History Diclofenac 1 TRANSDERMA QID 11/01/20 10/31/20 19:00 History Fluticasone Propionate 1 spray INTRANASAL DAILY 11/01/20 11/01/20 10/31/20 09:00 History Vitamin D3 2,000 units 11/01/20 10/31/20 09:00 History carvediloL 12.5 mg PO DAILY 11/01/20 11/01/20 10/31/20 09:00 History hydrALAZINE 100 mg PO TID 11/01/20 11/01/20 10/31/20 19:00 History Active Medications: Generic Name Dose Route Start Last Admin Trade Name Freq PRN Reason Stop Dose Admin Acetaminophen 650 mg 12/31/20 15:30 01/21/21 05:28 Acetaminophen 650 Mg Rect Supp MA 650 mg Q6H PRN Administration Non Cardiac Pain or Temp>100.5 Clonidine HCl 0.2 mg 01/11/21 10:00 01/25/21 09:42 Clonidine Tts 0.2 Mg/24 Hr Patch TD 0.2 mg We THOMAS Administration Dextrose 50 ml 01/14/21 17:59 01/18/21 15:10 Dextrose 50% In Water (25gm) 50 Ml Syringe IV 20 ml Q30MIN PRN Administration Hypoglycemia Protocol Digoxin 0.125 mg 01/09/21 12:00 01/25/21 11:35 Digoxin 0.5 Mg/2 Ml Inj IV 0.125 mg Q48H THOMAS Administration Diphenhydramine HCl 50 mg 01/20/21 10:10 01/24/21 02:21 Diphenhydramine 50 Mg/Ml Vial IV 50 mg Q6H PRN Administration Itching Famotidine 10 mg 12/24/20 13:00 01/25/21 09:43 Famotidine 20 Mg/2 Ml Inj IV 10 mg BID THOMAS Administration Haloperidol Lactate 5 mg 12/29/20 14:16 01/22/21 23:56 Haloperidol Lactate 5 Mg/1 Ml Inj IV 5 mg Q12H PRN Administration Agitation Heparin Sodium (Porcine) 5,000 unit 12/24/20 10:00 01/25/21 09:43 Heparin 5,000 Unit/1 Ml Vial SUB-Q 5,000 unit Q12HR THOMAS Administration Hydralazine HCl 10 mg 01/10/21 14:00 01/25/21 13:56 Hydralazine 20 Mg/1 Ml Inj IV 10 mg Q4HR THOMAS Administration Hydromorphone HCl 0.25 mg 01/09/21 10:53 01/24/21 10:00 Hydromorphone 1 Mg/1 Ml Inj IV 0.25 mg Q6H PRN Administration Pain , Severe (7-10) Hydrophilic Ointment 1 applic 12/31/20 06:39 01/11/21 21:28 Lip Therapy Vaseline TP 1 applic Q2HR PRN Administration Dry Lips Sodium Chloride 100 mls @ 999 mls/hr 01/19/21 09:30 Nacl 0.9% IV [place] PRN Hypotension Octreotide Acetate 100 mcg/ 101 mls @ 200 mls/hr 01/21/21 15:00 01/25/21 14:00 Sodium Chloride IV 200 mls/hr Q8H THOMAS Administration Amino Acids/Electrolytes/Dextrose 2,016 mls @ 84 mls/hr 01/24/21 20:00 01/24/21 20:32 Tpn Adult IV 01/25/21 19:59 84 mls/hr DAILY@2000 THOMAS Administration Protocol Amino Acids/Electrolytes/Dextrose 2,016 mls @ 84 mls/hr 01/25/21 20:00 Tpn Adult IV 01/26/21 19:59 DAILY@1999 [facility] Protocol Fat Emulsion Intravenous 250 mls @ 21 mls/hr 01/25/21 20:00 Intralipid 20% IV 01/26/21 08:00 DAILY@1999 [facility] Insulin Glargine 5 units 01/18/21 22:00 01/24/21 22:17 Insulin Glargine 100 Units/Ml SUB-Q 5 units QHS [facility] Administration Insulin Human Lispro 0 unit 01/03/21 12:00 01/25/21 12:30 Insulin Lispro 100 Unit/Ml SUB-Q Not Given Q6HR [facility] Protocol Metoprolol Tartrate 5 mg 12/30/20 12:00 01/25/21 13:55 Metoprolol Tartrate 5 Mg/5 Ml Inj IV 5 mg Q4HR [facility] Administration Multi-Ingred Cream/Lotion/Oil/Oint 1 applic 12/31/20 06:39 Mineral Oil/Petrolatum, White Ophth Oint 3.5 Gm OU Q4HR PRN Dry Eye(s) Ondansetron HCl 4 mg 01/25/21 11:56 01/25/21 12:55 Ondansetron 4 Mg/2 Ml Inj IV 4 mg Q4H PRN Administration Nausea And Vomiting Scopolamine 1 each 01/15/21 11:00 01/24/21 10:01 Scopolamine Transdermal Patch 72 Hr TD 1 each Q3D THOMAS Administration Sodium Chloride 10 ml 12/22/20 22:00 01/25/21 09:44 Sodium Chloride 0.9% 10 Ml Flush Syringe IV 10 ml BID [facility] Administration Sodium Chloride 10 ml 12/22/20 19:42 01/09/21 17:27 Sodium Chloride 0.9% 10 Ml Flush Syringe IV 10 ml PRN PRN Administration LINE FLUSH
[2021-01-25] MEDS: EPOETIN ALFA-EPBX 10,000 UNIT/1 ML VIAL SUB-Q PRN (17:43)
[2021-01-25] MEDS: HYDROmorphone 1 MG/1 ML INJ IV PRN (19:52)
[2021-01-25] MEDS ORDERED: FAT EMULSIONS 20% 250 ML IV SCH (20:00)
[2021-01-25] MEDS ORDERED: TOTAL PARENTERAL NUTRITION 2,016 ML IV SCH (20:00)
[2021-01-25] MEDS: INSULIN GLARGINE 100 UNITS/ML SUB-Q SCH (21:35)
[2021-01-26] MEDS: hydrALAZINE 20 MG/1 ML INJ IV SCH ×6 (02:24→21:59)
[2021-01-26] MEDS: METOPROLOL TARTRATE 5 MG/5 ML INJ IV SCH ×6 (02:25→22:00)
[2021-01-26] MEDS: INSULIN LISPRO 100 UNIT/ML SUB-Q SCH ×4 (02:25→17:13)
--- NOTE | 2021-01-26 09:53 | Progress Note ---
<CJ REINA - Last Filed: 01/26/21 09:51> Assessment and Plan Paroxysmal atrial fibrillation currently, he is sinus rhythm on telemetry Patient is not a candidate for anticoagulation due to his postoperative status and the presence of severe anemia. Hx of nonischemic cardiomyopathy, resolving LVEF 50-55% by echo this presentation Small bowl obstruction status post emergency exploratory laparotomy for anastomotic leak status post exploratory laparotomy s/p ex lap, resection of perforated anastamosis, washout and abthera wound vac placement ESRD now on HD Anemia s/p PRBCs Patient remains on NPO status. Will continue intravenous digoxin, and intravenous metoprolol for paroxysmal atrial fibrillation. Otherwise, conservative cardiac management. Subjective Date of service: 01/26/21 Principal diagnosis: Ac hypoxemic resp failure; Severe Sepsis; Peritonitis; Acute SBO; ESRD; CHF Interval history: Patient is resting in bed and appears comfortable. Patient remains on NPO status. Sinus rhythm on telemetry. Objective Vital Signs Temp Pulse Pulse Resp BP Pulse Ox Pulse Ox 01/26/21 08:00 99.2 F 01/26/21 06:00 83 19 152/75 93 01/26/21 05:40 81 01/26/21 04:00 98.7 F 81 79 17 159/89 96 01/26/21 02:25 71 01/26/21 02:24 71 01/26/21 02:00 81 19 147/78 92 01/26/21 00:00 98.7 F 86 79 18 159/80 95 01/25/21 23:39 88 17 146/73 97 01/25/21 22:00 90 20 161/80 91 01/25/21 21:33 98 H 152/76 01/25/21 20:00 98.2 F 84 79 16 165/77 92 01/25/21 18:35 98.8 F 81 20 154/76 97 01/25/21 18:30 82 149/76 01/25/21 18:15 86 153/73 01/25/21 18:00 85 21 143/67 92 01/25/21 17:45 80 153/74 01/25/21 17:30 84 149/79 01/25/21 17:21 99 H 146/77 01/25/21 17:20 99 H 149/79 01/25/21 17:15 101 H 149/72 01/25/21 17:00 90 136/76 01/25/21 16:45 92 H 159/83 01/25/21 16:30 89 154/78 01/25/21 16:15 90 160/78 01/25/21 16:01 88 19 139/69 95 01/25/21 16:00 78 82 16 143/80 96 01/25/21 15:45 84 149/75 01/25/21 15:30 94 H 143/76 01/25/21 15:15 83 160/70 01/25/21 14:55 82 161/85 01/25/21 14:45 98.8 F 80 17 165/88 97 01/25/21 14:01 94 H 17 161/84 01/25/21 12:00 98.7 F 82 80 18 160/84 99 01/25/21 11:35 81 155/73 01/25/21 10:00 74 17 172/86 90 - Physical Examination General: No Apparent Distress HEENT: Positive: PERRL Neck: Positive: neck supple Cardiac: Positive: Reg Rate and Rhythm Lungs: Positive: Decreased Breath Sounds Neuro: Positive: Grossly Intact Abdomen: Positive: Other (post op) Extremities: Absent: edema - Labs and Meds Comprehensive Metabolic Panel 01/26/21 Range/Units 04:19 Sodium 141 (137-145) mmol/L Potassium 3.7 (3.6-5.0) mmol/L Chloride 100.6 (98-107) mmol/L Carbon Dioxide 26 (22-30) mmol/L BUN 49 H (9-20) mg/dL Creatinine 7.1 H (0.8-1.3) mg/dL Glucose 98 (75-100) mg/dL Calcium 9.0 (8.4-10.2) mg/dL - Allied health notes Allied health notes reviewed: nursing <COLTON PONCE - Last Filed: 01/31/21 17:05> Assessment and Plan - Patient Problems (1) Atrial fibrillation Current Visit: Yes Status: Acute (2) Accelerated hypertension Current Visit: No Status: Acute Subjective Interval history: I SAW THIS PT & AGREE WITH THE Dx & Tx PLAN. Objective Vital Signs Temp Pulse Resp Resp BP BP Pulse Ox 01/31/21 16:31 98.3 F 73 16 163/87 98 01/31/21 15:28 73 162/79 01/31/21 14:02 73 162/79 01/31/21 11:56 73 162/79 01/31/21 11:46 98.6 F 68 16 160/82 100 01/31/21 10:58 73 162/79 01/31/21 06:57 73 162/79 01/31/21 06:56 82 176/89 01/31/21 05:13 99 F 71 18 146/89 94 01/31/21 04:00 74 01/31/21 03:44 17 01/31/21 03:35 17 01/31/21 02:07 17 01/31/21 01:45 69 153/74 01/31/21 01:44 71 168/73 01/31/21 01:37 17 01/31/21 01:10 98.9 F 72 18 157/85 98 01/31/21 00:00 72 17 01/30/21 22:30 67 161/80 01/30/21 22:27 67 161/80 01/30/21 19:40 98.8 F 68 18 172/90 94 01/30/21 19:03 17 01/30/21 18:37 72 163/86 01/30/21 18:33 72 163/86 01/30/21 18:27 97.6 F 70 16 163/86 97 01/30/21 18:00 17
[2021-01-26] MEDS: HEPARIN 5,000 UNIT/1 ML VIAL SUB-Q SCH ×2 (10:04→22:01)
[2021-01-26] MEDS: FAMOTIDINE 20 MG/2 ML INJ IV SCH ×2 (10:04→22:00)
[2021-01-26] MEDS: OCTREOTIDE 100 MCG in SODIUM CHLORIDE 0.9% 100 ML IV SCH ×3 (10:05→22:19)
[2021-01-26] MEDS ORDERED: MAGNESIUM SULFATE 3 GM in SODIUM CHLORIDE 0.9% 100 ML IV ONE (11:00)
--- NOTE | 2021-01-26 11:48 | Progress Note ---
Assessment and Plan Cultures: 12/22/2020 blood culture: Streptococcus bovis, Prevotella 12/22/2020 PD fluid culture: No growth 12/24/2020 tracheal aspirate culture: No growth 12/24/2020 blood culture: No growth 12/31/2020 sputum culture: No growth A/P: 60-year-old male with ESRD on PD, Crohn's disease, CHF, gastroesophageal reflux disease was admitted to the hospital with complaints of abdominal pain and fever: #Severe sepsis with shock: improved. Secondary to small bowel obstruction/necrotic bowel with associated peritonitis. Status post exploratory laparotomy on 12/23/2020 with extensive lysis, primary anastomosis, found to have necrotic segment of small bowel. #Small bowel obstruction/necrotic bowel: with concern for PD associated peritonitis: Nephrology and general surgery following. Status post exploratory laparotomy on 12/23/2020 with extensive lysis, primary anastomosis, found to have necrotic segment of small bowel. PD catheter remains in place. S/p ex lap, resection of perforated anastamosis, washout and abthera wound vac placement on 01/01. Repeat CT abdomen showed no new abscesses, noted small free fluid. S/p Exploratory laparotomy, Right hemicolectomy, Peritoneal lavage, Partial omentectomy, ABThera wound VAC placement on 01/03/2021. Complicated intra- abdominal situation per d/w Dr. Sanchez, plan to continue IV abx for now, has limited surgical options at this time. #Streptococcus bovis bacteremia and Prevotella bacteremia: secondary to above. TTE without obvious vegetations. Repeat blood cultures negative. #ESRD: Renally dose antibiotics. Used to be on PD. On HD. #Acute respiratory failure: improved. Recs: -completed Zosyn on 01/24/2021 Yesika Denny MD, FACP [facility] ([facility] O: [phone] F: [phone] Subjective Date of service: 01/26/21 Principal diagnosis: Ac hypoxemic resp failure; Severe Sepsis; Peritonitis; Acute SBO; ESRD; CHF Interval history: No fever today. Denies any complaints. NG +. Working with PT in bed, asking for food Objective - Exam Narrative Exam: Physical Exam: Constitutional: awake alert, calm Head, Ears, Nose: Normocephalic, atraumatic. External ears, nose normal. NG + Eyes: Conjunctivae/corneas clear. No icterus. No ptosis. Neck: supple Cardiovascular: S1, S2 + Respiratory: AE fair bilaterally GI: VAC +, bowel sounds +, drain + Musculoskeletal: No pedal edema, no cyanosis. Skin: No rash or abscess Hem/Lymphatic: No palpable cervical or supraclavicular nodes. No lymphangitis Psych: calm, no agitation Neurological: awake, alert, oriented. - Constitutional Vitals: Vital Signs Temp Pulse Resp BP Pulse Ox 99.2 F 84 19 131/74 97 01/26/21 08:00 01/26/21 10:00 01/26/21 10:00 01/26/21 10:00 01/26/21 10:00 Temperature -Last 24 Hours Temperature 99.2 F Temperature 98.7 F Temperature 98.7 F Temperature 98.2 F Temperature 98.8 F Temperature 98.8 F Temperature 98.7 F - Labs CBC & Chem 7: 01/20/21 03:35 01/26/21 04:19 Labs: Abnormal lab results 01/25/21 01/25/21 01/25/21 Range/Units 11:49 18:42 23:37 BUN (9-20) mg/dL Creatinine (0.8-1.3) mg/dL POC Glucose 130 H 122 H 144 H (70-105) mg/dL Magnesium (1.7-2.3) mg/dL 01/26/21 01/26/21 01/26/21 Range/Units 04:19 05:48 11:16 BUN 49 H (9-20) mg/dL Creatinine 7.1 H (0.8-1.3) mg/dL POC Glucose 125 H 122 H (70-105) mg/dL Magnesium 1.50 L (1.7-2.3) mg/dL
--- NOTE | 2021-01-26 14:21 | Progress Note ---
Assessment and Plan Acute hypoxemic respiratory failure, on mechanical ventilatory support. Severe Sepsis Peritonitis Acute small-bowel obstruction with tissue necrosis. End-stage renal disease, on dialysis. Hypertension. Crohn's disease. Gastroesophageal reflux disease. Heart failure with reduced ejection fraction. Hyperkalemia. Anemia that is normocytic. Lactic acidosis. Oropharyngeal dysphagia - secretions better - Anna stopped - no new issues today, continue care as below; - continue octreotide - follow clinically for S&S of infection re: fevers / WBC - continue total parenteral nutrition - continue wound care per RN/WCN - continue to wean supplemental oxygen for target O2 sat's > 92% acutely - aspiration precautions - continue bronchodilators with pulmonary hygiene per RT - wean per pulmonary driven protocols otherwise - HD/UF per nephrology prescription for toxin and volume control - avoid nephrotoxins, renally dose all medications - continue accuchecks with glycemic control per SSI for target blood glucose of <180 mg/dL; avoid hypoglycemia - continue to avoid benzodiazepine's, reduce the possibility of delirium - AB's per ID rec's - prn analgesia per pain score - Maintenance of sleep-wake cycle, avoid delirium - G.I. & VTE prophylaxis - PT/OT/ROM exercises - continue mobility protocols for pressure ulcer prophylaxis - Monitor hemodynamics closely - continue other care per attending / other consultants - discharge planning ongoing concurrently .... Re-evaluate in am & prn Subjective Date of service: 01/26/21 Principal diagnosis: Ac hypoxemic resp failure; Severe Sepsis; Peritonitis; Acute SBO; ESRD; CHF Interval history: Patient is seen today for: Ac hypoxemic resp failure; Severe Sepsis; Peritonitis; Acute SBO; ESRD on Dialysis; HTN; Crohn's disease; HFrEF Seen and examined at bedside; 24hour events reviewed; nursing and respiratory care staff consulted; no adverse overnight events reported to me; resting in bed; remains on supplemental oxygen; HARIS drain in place; remains on scheduled octreotide; No N/V/F/C Objective Vital Signs - 12hr 01/26/21 01/26/21 01/26/21 02:24 02:25 04:00 Temperature 98.7 F Pulse Rate 71 71 81 Pulse Rate [ 79 From Monitor] Respiratory 17 Rate Respiratory Rate [Anterior Abdomen] Blood Pressure 159/89 O2 Sat by Pulse 96 Oximetry 01/26/21 01/26/21 01/26/21 05:40 06:00 08:00 Temperature 99.2 F Pulse Rate 81 83 83 Pulse Rate [ 79 From Monitor] Respiratory 19 16 Rate Respiratory Rate [Anterior Abdomen] Blood Pressure 152/75 145/75 O2 Sat by Pulse 93 96 Oximetry 01/26/21 01/26/21 01/26/21 10:00 11:00 12:00 Temperature 98.4 F Pulse Rate 84 86 Pulse Rate [ 79 From Monitor] Respiratory 19 16 Rate Respiratory 18 Rate [Anterior Abdomen] Blood Pressure 131/74 O2 Sat by Pulse 97 96 Oximetry 01/26/21 12:01 Temperature Pulse Rate 82 Pulse Rate [ From Monitor] Respiratory 21 Rate Respiratory Rate [Anterior Abdomen] Blood Pressure 149/77 O2 Sat by Pulse 95 Oximetry Constitutional: no acute distress, alert, other (elderly male with normal respiratory effort at rest) Eyes: non-icteric ENT: oropharynx moist Neck: supple, no lymphadenopathy, no JVD Effort: normal Ascultation: Bilateral: clear, diminished breath sounds Percussion: Bilateral: not dull Cardiovascular: regular rate and rhythm, other (S1,S2) Gastrointestinal: hypoactive bowel sounds, soft, non-tender, non-distended (protuberant), other (Midline abdominal incision ) Integumentary: other (Midline abdominal incision ) Extremities: no cyanosis, no edema, pulses normal, no ischemia or petechiae Neurologic: non-focal exam (grossly), pupils equal and round, CN II-XII normal Psychiatric: mood appropriate, affect normal CBC and BMP: 01/27/21 04:19 01/27/21 04:19 ABG, PT/INR, D-dimer: ABG ABG pH 7.345 pH Units (7.350-7.450) L 01/07/21 17:14 POC ABG pCO2 41.4 mmHg (32.0-48.0) 01/07/21 03:07 ABG pCO2 40.3 mm Hg 01/07/21 17:14 POC ABG pO2 94.5 mmHg (83-108) 01/07/21 03:07 ABG pO2 67.4 mm Hg (80.0-90.0) L 01/07/21 17:14 POC ABG HCO3 22.7 01/07/21 03:07 ABG O2 Saturation 94.3 % (95.0-99.0) L 01/07/21 17:14 PT/INR, D-dimer PT 16.9 Sec. (12.2-14.9) H 01/01/21 12:45 INR 1.39 (0.87-1.13) H 01/01/21 12:45 Abnormal lab findings: Abnormal Labs 12/22/20 12/22/20 12/22/20 14:38 14:38 14:38 WBC RBC Hgb 11.2 L Hct 35.0 L MCV MCHC RDW 16.7 H Plt Count Lymph % (Auto) [place] % (Auto) Lymph # (Auto) [place] # (Auto) Seg Neutrophils % Seg Neuts % (Manual) 94.0 H Lymphocytes % (Manual) 5.0 L Monocytes % (Manual) Seg Neutrophils # Seg Neutrophils # Man Lymphocytes # (Manual) 0.3 L Monocytes # (Manual) PT INR ABG pH POC ABG pCO2 POC ABG pO2 ABG pO2 ABG HCO3 ABG O2 Saturation ABG Base Excess ABG Hemoglobin ABG Oxyhemoglobin ABG Sodium ABG Potassium ABG Chloride ABG Glucose Oxyhemoglobin Sodium Potassium Chloride Carbon Dioxide BUN 58 H Creatinine 13.2 H Glucose 113 H POC Glucose Lactic Acid 3.60 H* Calcium Phosphorus Magnesium Total Bilirubin 1.30 H AST ALT Alkaline Phosphatase 155 H Total Protein Albumin Triglycerides Arterial Blood Glucose Arterial Blood Ionized Calcium Digoxin Crossmatch 12/22/20 12/22/20 12/23/20 16:26 17:47 05:22 WBC RBC Hgb Hct MCV MCHC RDW Plt Count Lymph % (Auto) [place] % (Auto) Lymph # (Auto) [place] # (Auto) Seg Neutrophils % Seg Neuts % (Manual) Lymphocytes % (Manual) Monocytes % (Manual) Seg Neutrophils # Seg Neutrophils # Man Lymphocytes # (Manual) Monocytes # (Manual) PT INR ABG pH POC ABG pCO2 POC ABG pO2 ABG pO2 ABG HCO3 ABG O2 Saturation ABG Base Excess ABG Hemoglobin ABG Oxyhemoglobin ABG Sodium ABG Potassium ABG Chloride ABG Glucose Oxyhemoglobin Sodium Potassium Chloride Carbon Dioxide BUN Creatinine Glucose POC Glucose Lactic Acid 2.80 H* 3.10 H* 2.30 H* Calcium Phosphorus Magnesium Total Bilirubin AST ALT Alkaline Phosphatase Total Protein Albumin Triglycerides Arterial Blood Glucose Arterial Blood Ionized Calcium Digoxin Crossmatch 12/23/20 12/23/20 12/23/20 05:22 05:22 06:35 WBC 12.1 H RBC Hgb 11.0 L Hct 33.7 L MCV MCHC RDW 16.9 H Plt Count Lymph % (Auto) [place] % (Auto) Lymph # (Auto) [place] # (Auto) Seg Neutrophils % Seg Neuts % (Manual) 93.0 H Lymphocytes % (Manual) 1.0 L Monocytes % (Manual) Seg Neutrophils # Seg Neutrophils # Man 11.3 H Lymphocytes # (Manual) 0.1 L Monocytes # (Manual) PT INR ABG pH POC ABG pCO2 POC ABG pO2 ABG pO2 ABG HCO3 ABG O2 Saturation ABG Base Excess ABG Hemoglobin ABG Oxyhemoglobin ABG Sodium ABG Potassium ABG Chloride ABG Glucose Oxyhemoglobin Sodium Potassium 5.7 H D Chloride Carbon Dioxide BUN 73 H Creatinine 14.2 H Glucose POC Glucose Lactic Acid 2.30 H* Calcium 7.9 L Phosphorus Magnesium Total Bilirubin 1.40 H AST 119 H ALT 130 H Alkaline Phosphatase 183 H Total Protein 6.1 L Albumin 3.6 L Triglycerides Arterial Blood Glucose Arterial Blood Ionized Calcium Digoxin Crossmatch 12/23/20 12/23/20 12/23/20 11:40 13:53 16:47 WBC RBC Hgb 10.0 L Hct 30.4 L MCV MCHC RDW Plt Count Lymph % (Auto) [place] % (Auto) Lymph # (Auto) [place] # (Auto) Seg Neutrophils % Seg Neuts % (Manual) Lymphocytes % (Manual) Monocytes % (Manual) Seg Neutrophils # Seg Neutrophils # Man Lymphocytes # (Manual) Monocytes # (Manual) PT INR ABG pH POC ABG pCO2 POC ABG pO2 137.5 H ABG pO2 ABG HCO3 ABG O2 Saturation ABG Base Excess ABG Hemoglobin 9.7 L ABG Oxyhemoglobin ABG Sodium 134.1 L ABG Potassium 6.6 H ABG Chloride ABG Glucose 103 H Oxyhemoglobin Sodium Potassium Chloride Carbon Dioxide BUN Creatinine Glucose POC Glucose Lactic Acid Calcium Phosphorus Magnesium Total Bilirubin AST ALT Alkaline Phosphatase Total Protein Albumin Triglycerides Arterial Blood Glucose 103 H Arterial Blood Ionized Calcium 3.8 L Digoxin Crossmatch See Detail 12/23/20 12/23/20 12/24/20 20:35 20:40 01:20 WBC RBC Hgb Hct MCV MCHC RDW Plt Count Lymph % (Auto) [place] % (Auto) Lymph # (Auto) [place] # (Auto) Seg Neutrophils % Seg Neuts % (Manual) Lymphocytes % (Manual) Monocytes % (Manual) Seg Neutrophils # Seg Neutrophils # Man Lymphocytes # (Manual) Monocytes # (Manual) PT INR ABG pH 7.252 L POC ABG pCO2 POC ABG pO2 ABG pO2 50.1 L ABG HCO3 ABG O2 Saturation 81.1 L ABG Base Excess -5.9 L ABG Hemoglobin 12.1 L ABG Oxyhemoglobin ABG Sodium ABG Potassium ABG Chloride ABG Glucose Oxyhemoglobin 78.6 L Sodium 134 L Potassium 6.9 H* D 6.3 H* Chloride Carbon Dioxide 18 L 20 L BUN 87 H 91 H Creatinine 15.3 H 15.3 H Glucose 103 H POC Glucose Lactic Acid Calcium 6.9 L 7.5 L Phosphorus Magnesium Total Bilirubin AST ALT Alkaline Phosphatase Total Protein Albumin Triglycerides Arterial Blood Glucose Arterial Blood Ionized Calcium Digoxin Crossmatch 12/24/20 12/24/20 12/24/20 04:00 10:29 10:29 WBC RBC 3.49 L Hgb 10.5 L Hct 31.2 L MCV MCHC RDW 17.5 H Plt Count 124 L Lymph % (Auto) 3.7 L [place] % (Auto) 9.8 H Lymph # (Auto) 0.2 L [place] # (Auto) Seg Neutrophils % 85.9 H Seg Neuts % (Manual) Lymphocytes % (Manual) Monocytes % (Manual) Seg Neutrophils # Seg Neutrophils # Man Lymphocytes # (Manual) Monocytes # (Manual) PT INR ABG pH POC ABG pCO2 28.1 L POC ABG pO2 ABG pO2 ABG HCO3 ABG O2 Saturation ABG Base Excess ABG Hemoglobin ABG Oxyhemoglobin ABG Sodium 133.9 L ABG Potassium 5.3 H ABG Chloride 108.0 H ABG Glucose Oxyhemoglobin Sodium Potassium 5.6 H Chloride Carbon Dioxide 19 L BUN 99 H Creatinine 16.9 H Glucose 52 L POC Glucose Lactic Acid Calcium 7.6 L Phosphorus Magnesium Total Bilirubin 3.50 H AST 67 H ALT 71 H Alkaline Phosphatase Total Protein 3.5 L D Albumin 2.1 L Triglycerides Arterial Blood Glucose Arterial Blood Ionized Calcium 4.0 L Digoxin Crossmatch 12/25/20 12/25/20 12/25/20 03:33 04:00 04:00 WBC 3.8 L RBC 2.90 L Hgb 8.6 L Hct 25.7 L MCV MCHC RDW 16.7 H Plt Count 113 L Lymph % (Auto) [place] % (Auto) Lymph # (Auto) [place] # (Auto) Seg Neutrophils % Seg Neuts % (Manual) Lymphocytes % (Manual) Monocytes % (Manual) Seg Neutrophils # Seg Neutrophils # Man Lymphocytes # (Manual) Monocytes # (Manual) PT INR ABG pH 7.544 H POC ABG pCO2 28.2 L POC ABG pO2 62.8 L ABG pO2 ABG HCO3 ABG O2 Saturation ABG Base Excess ABG Hemoglobin 9.3 L ABG Oxyhemoglobin 93.0 L ABG Sodium 130.3 L ABG Potassium ABG Chloride ABG Glucose 97 H Oxyhemoglobin Sodium Potassium Chloride Carbon Dioxide BUN 62 H Creatinine 11.4 H Glucose POC Glucose Lactic Acid Calcium 7.7 L Phosphorus 5.00 H Magnesium Total Bilirubin AST ALT Alkaline Phosphatase Total Protein Albumin Triglycerides Arterial Blood Glucose 97 H Arterial Blood Ionized Calcium 3.9 L Digoxin Crossmatch 12/26/20 12/26/20 12/27/20 04:46 Unknown 03:40 WBC 4.1 L RBC 2.61 L Hgb 7.8 L Hct 23.4 L MCV MCHC RDW 17.1 H Plt Count 119 L Lymph % (Auto) 5.3 L [place] % (Auto) 10.6 H Lymph # (Auto) 0.2 L [place] # (Auto) Seg Neutrophils % 78.8 H Seg Neuts % (Manual) Lymphocytes % (Manual) Monocytes % (Manual) Seg Neutrophils # Seg Neutrophils # Man Lymphocytes # (Manual) Monocytes # (Manual) PT INR ABG pH 7.333 L 7.332 L POC ABG pCO2 POC ABG pO2 ABG pO2 ABG HCO3 26.9 H ABG O2 Saturation ABG Base Excess -2.4 L ABG Hemoglobin 6.8 L 7.2 L ABG Oxyhemoglobin ABG Sodium ABG Potassium ABG Chloride ABG Glucose Oxyhemoglobin 93.0 L 93.1 L Sodium Potassium Chloride Carbon Dioxide BUN Creatinine Glucose POC Glucose Lactic Acid Calcium Phosphorus Magnesium Total Bilirubin AST ALT Alkaline Phosphatase Total Protein Albumin Triglycerides Arterial Blood Glucose Arterial Blood Ionized Calcium Digoxin Crossmatch 12/27/20 12/27/20 12/27/20 06:40 06:40 11:22 WBC 4.4 L RBC 2.49 L Hgb 7.4 L Hct 22.4 L MCV MCHC RDW 17.1 H Plt Count 111 L Lymph % (Auto) 6.7 L [place] % (Auto) 12.6 H Lymph # (Auto) 0.3 L [place] # (Auto) Seg Neutrophils % 77.6 H Seg Neuts % (Manual) Lymphocytes % (Manual) Monocytes % (Manual) Seg Neutrophils # Seg Neutrophils # Man Lymphocytes # (Manual) Monocytes # (Manual) PT INR ABG pH POC ABG pCO2 POC ABG pO2 ABG pO2 ABG HCO3 ABG O2 Saturation ABG Base Excess ABG Hemoglobin ABG Oxyhemoglobin ABG Sodium ABG Potassium ABG Chloride ABG Glucose Oxyhemoglobin Sodium Potassium Chloride Carbon Dioxide BUN 64 H Creatinine 9.8 H Glucose 147 H POC Glucose 134 H Lactic Acid Calcium 8.3 L Phosphorus 5.00 H Magnesium Total Bilirubin 3.70 H AST 72 H ALT Alkaline Phosphatase 142 H Total Protein 5.1 L D Albumin 2.9 L Triglycerides Arterial Blood Glucose Arterial Blood Ionized Calcium Digoxin Crossmatch 12/27/20 12/27/20 12/28/20 17:29 23:31 03:09 WBC RBC Hgb Hct MCV MCHC RDW Plt Count Lymph % (Auto) [place] % (Auto) Lymph # (Auto) [place] # (Auto) Seg Neutrophils % Seg Neuts % (Manual) Lymphocytes % (Manual) Monocytes % (Manual) Seg Neutrophils # Seg Neutrophils # Man Lymphocytes # (Manual) Monocytes # (Manual) PT INR ABG pH 7.474 H POC ABG pCO2 POC ABG pO2 ABG pO2 ABG HCO3 ABG O2 Saturation ABG Base Excess ABG Hemoglobin 7.8 L ABG Oxyhemoglobin ABG Sodium ABG Potassium ABG Chloride ABG Glucose Oxyhemoglobin Sodium Potassium Chloride Carbon Dioxide BUN Creatinine Glucose POC Glucose 121 H 131 H Lactic Acid Calcium Phosphorus Magnesium Total Bilirubin AST ALT Alkaline Phosphatase Total Protein Albumin Triglycerides Arterial Blood Glucose Arterial Blood Ionized Calcium Digoxin Crossmatch 12/28/20 12/28/20 12/28/20 05:37 05:40 05:40 WBC 4.3 L RBC 2.40 L Hgb 7.2 L Hct 21.5 L MCV MCHC RDW 17.4 H Plt Count 112 L Lymph % (Auto) 6.5 L [place] % (Auto) 16.7 H Lymph # (Auto) 0.3 L [place] # (Auto) Seg Neutrophils % 71.1 H Seg Neuts % (Manual) Lymphocytes % (Manual) Monocytes % (Manual) Seg Neutrophils # Seg Neutrophils # Man Lymphocytes # (Manual) Monocytes # (Manual) PT INR ABG pH POC ABG pCO2 POC ABG pO2 ABG pO2 ABG HCO3 ABG O2 Saturation ABG Base Excess ABG Hemoglobin ABG Oxyhemoglobin ABG Sodium ABG Potassium ABG Chloride ABG Glucose Oxyhemoglobin Sodium Potassium Chloride Carbon Dioxide BUN 85 H Creatinine 11.5 H Glucose 132 H POC Glucose 121 H Lactic Acid Calcium 8.2 L Phosphorus Magnesium 2.40 H Total Bilirubin 3.80 H AST 70 H ALT Alkaline Phosphatase 176 H Total Protein 5.0 L Albumin 2.9 L Triglycerides Arterial Blood Glucose Arterial Blood Ionized Calcium Digoxin Crossmatch 12/28/20 12/28/20 12/28/20 11:34 15:00 17:35 WBC RBC Hgb Hct MCV MCHC RDW Plt Count Lymph % (Auto) [place] % (Auto) Lymph # (Auto) [place] # (Auto) Seg Neutrophils % Seg Neuts % (Manual) Lymphocytes % (Manual) Monocytes % (Manual) Seg Neutrophils # Seg Neutrophils # Man Lymphocytes # (Manual) Monocytes # (Manual) PT INR ABG pH 7.461 H POC ABG pCO2 POC ABG pO2 72.2 L ABG pO2 ABG HCO3 ABG O2 Saturation ABG Base Excess ABG Hemoglobin 8.2 L ABG Oxyhemoglobin 93.6 L ABG Sodium 134.1 L ABG Potassium 3.2 L ABG Chloride ABG Glucose 135 H Oxyhemoglobin Sodium Potassium Chloride Carbon Dioxide BUN Creatinine Glucose POC Glucose 137 H 144 H Lactic Acid Calcium Phosphorus Magnesium Total Bilirubin AST ALT Alkaline Phosphatase Total Protein Albumin Triglycerides Arterial Blood Glucose 135 H Arterial Blood Ionized Calcium 4.4 L Digoxin Crossmatch 12/28/20 12/28/20 12/29/20 19:44 Unknown 00:21 WBC RBC Hgb Hct MCV MCHC RDW Plt Count Lymph % (Auto) [place] % (Auto) Lymph # (Auto) [place] # (Auto) Seg Neutrophils % Seg Neuts % (Manual) Lymphocytes % (Manual) Monocytes % (Manual) Seg Neutrophils # Seg Neutrophils # Man Lymphocytes # (Manual) Monocytes # (Manual) PT INR ABG pH 7.474 H POC ABG pCO2 POC ABG pO2 ABG pO2 ABG HCO3 ABG O2 Saturation ABG Base Excess ABG Hemoglobin 7.8 L ABG Oxyhemoglobin ABG Sodium 133.2 L ABG Potassium ABG Chloride ABG Glucose 139 H Oxyhemoglobin Sodium 135 L Potassium Chloride 96.6 L Carbon Dioxide BUN 47 H Creatinine 7.4 H Glucose 130 H POC Glucose 142 H Lactic Acid Calcium 8.3 L Phosphorus Magnesium Total Bilirubin AST ALT Alkaline Phosphatase Total Protein Albumin Triglycerides Arterial Blood Glucose 139 H Arterial Blood Ionized Calcium 4.3 L Digoxin Crossmatch 12/29/20 12/29/20 12/29/20 05:16 05:16 05:26 WBC RBC 2.53 L Hgb 7.7 L Hct 22.8 L MCV MCHC RDW 17.0 H Plt Count 130 L Lymph % (Auto) [place] % (Auto) Lymph # (Auto) [place] # (Auto) Seg Neutrophils % Seg Neuts % (Manual) 79.0 H Lymphocytes % (Manual) 9.0 L Monocytes % (Manual) Seg Neutrophils # Seg Neutrophils # Man Lymphocytes # (Manual) 0.6 L Monocytes # (Manual) PT INR ABG pH POC ABG pCO2 POC ABG pO2 ABG pO2 ABG HCO3 ABG O2 Saturation ABG Base Excess ABG Hemoglobin ABG Oxyhemoglobin ABG Sodium ABG Potassium ABG Chloride ABG Glucose Oxyhemoglobin Sodium Potassium 3.4 L Chloride 96.6 L Carbon Dioxide BUN 59 H Creatinine 8.3 H Glucose 127 H POC Glucose 141 H Lactic Acid Calcium 8.2 L Phosphorus Magnesium Total Bilirubin 3.00 H AST 88 H ALT Alkaline Phosphatase 188 H Total Protein 5.1 L Albumin 2.8 L Triglycerides Arterial Blood Glucose Arterial Blood Ionized Calcium Digoxin Crossmatch 12/29/20 12/29/20 12/29/20 11:33 17:29 23:22 WBC RBC Hgb Hct MCV MCHC RDW Plt Count Lymph % (Auto) [place] % (Auto) Lymph # (Auto) [place] # (Auto) Seg Neutrophils % Seg Neuts % (Manual) Lymphocytes % (Manual) Monocytes % (Manual) Seg Neutrophils # Seg Neutrophils # Man Lymphocytes # (Manual) Monocytes # (Manual) PT INR ABG pH POC ABG pCO2 POC ABG pO2 ABG pO2 ABG HCO3 ABG O2 Saturation ABG Base Excess ABG Hemoglobin ABG Oxyhemoglobin ABG Sodium ABG Potassium ABG Chloride ABG Glucose Oxyhemoglobin Sodium Potassium Chloride Carbon Dioxide BUN Creatinine Glucose POC Glucose 144 H 130 H 117 H Lactic Acid Calcium Phosphorus Magnesium Total Bilirubin AST ALT Alkaline Phosphatase Total Protein Albumin Triglycerides Arterial Blood Glucose Arterial Blood Ionized Calcium Digoxin Crossmatch 12/30/20 12/30/20 12/30/20 05:23 08:15 09:00 WBC RBC Hgb Hct MCV MCHC RDW Plt Count Lymph % (Auto) [place] % (Auto) Lymph # (Auto) [place] # (Auto) Seg Neutrophils % Seg Neuts % (Manual) Lymphocytes % (Manual) Monocytes % (Manual) Seg Neutrophils # Seg Neutrophils # Man Lymphocytes # (Manual) Monocytes # (Manual) PT INR ABG pH POC ABG pCO2 POC ABG pO2 ABG pO2 ABG HCO3 ABG O2 Saturation ABG Base Excess ABG Hemoglobin ABG Oxyhemoglobin ABG Sodium ABG Potassium ABG Chloride ABG Glucose Oxyhemoglobin Sodium 135 L Potassium Chloride 95.9 L Carbon Dioxide BUN 85 H Creatinine 10.6 H Glucose 128 H POC Glucose 135 H 127 H Lactic Acid Calcium 8.3 L Phosphorus Magnesium Total Bilirubin 2.40 H AST 85 H ALT Alkaline Phosphatase 216 H Total Protein 5.3 L Albumin 2.6 L Triglycerides 155 H Arterial Blood Glucose Arterial Blood Ionized Calcium Digoxin Crossmatch 12/30/20 12/30/20 12/30/20 09:00 11:53 15:49 WBC RBC 2.61 L Hgb 7.8 L Hct 23.7 L MCV MCHC RDW 17.3 H Plt Count Lymph % (Auto) [place] % (Auto) Lymph # (Auto) [place] # (Auto) Seg Neutrophils % Seg Neuts % (Manual) Lymphocytes % (Manual) Monocytes % (Manual) Seg Neutrophils # Seg Neutrophils # Man Lymphocytes # (Manual) Monocytes # (Manual) PT INR ABG pH POC ABG pCO2 POC ABG pO2 ABG pO2 ABG HCO3 ABG O2 Saturation ABG Base Excess ABG Hemoglobin ABG Oxyhemoglobin ABG Sodium ABG Potassium ABG Chloride ABG Glucose Oxyhemoglobin Sodium Potassium Chloride Carbon Dioxide BUN Creatinine Glucose POC Glucose 155 H 146 H Lactic Acid Calcium Phosphorus Magnesium Total Bilirubin AST ALT Alkaline Phosphatase Total Protein Albumin Triglycerides Arterial Blood Glucose Arterial Blood Ionized Calcium Digoxin Crossmatch 12/30/20 12/30/20 12/31/20 17:53 23:45 03:56 WBC RBC Hgb Hct MCV MCHC RDW Plt Count Lymph % (Auto) [place] % (Auto) Lymph # (Auto) [place] # (Auto) Seg Neutrophils % Seg Neuts % (Manual) Lymphocytes % (Manual) Monocytes % (Manual) Seg Neutrophils # Seg Neutrophils # Man Lymphocytes # (Manual) Monocytes # (Manual) PT INR ABG pH POC ABG pCO2 POC ABG pO2 49.4 L ABG pO2 ABG HCO3 ABG O2 Saturation ABG Base Excess ABG Hemoglobin 10.3 L ABG Oxyhemoglobin 84.2 L ABG Sodium 133.1 L ABG Potassium ABG Chloride ABG Glucose 173 H Oxyhemoglobin Sodium Potassium Chloride Carbon Dioxide BUN Creatinine Glucose POC Glucose 139 H 173 H Lactic Acid Calcium Phosphorus Magnesium Total Bilirubin AST ALT Alkaline Phosphatase Total Protein Albumin Triglycerides Arterial Blood Glucose 173 H Arterial Blood Ionized Calcium Digoxin Crossmatch 12/31/20 12/31/20 12/31/20 05:07 06:51 06:51 WBC 20.3 H RBC 3.32 L Hgb 9.8 L Hct 30.3 L D MCV MCHC RDW 17.3 H Plt Count Lymph % (Auto) [place] % (Auto) Lymph # (Auto) [place] # (Auto) Seg Neutrophils % Seg Neuts % (Manual) 87.0 H Lymphocytes % (Manual) 10.0 L Monocytes % (Manual) Seg Neutrophils # Seg Neutrophils # Man 17.7 H Lymphocytes # (Manual) Monocytes # (Manual) PT INR ABG pH POC ABG pCO2 POC ABG pO2 ABG pO2 ABG HCO3 ABG O2 Saturation ABG Base Excess ABG Hemoglobin ABG Oxyhemoglobin ABG Sodium ABG Potassium ABG Chloride ABG Glucose Oxyhemoglobin Sodium Potassium 5.2 H D Chloride Carbon Dioxide BUN 62 H Creatinine 8.4 H Glucose 116 H POC Glucose 120 H Lactic Acid Calcium Phosphorus Magnesium 1.60 L Total Bilirubin AST ALT Alkaline Phosphatase Total Protein Albumin Triglycerides Arterial Blood Glucose Arterial Blood Ionized Calcium Digoxin Crossmatch 12/31/20 12/31/20 12/31/20 09:38 12:19 12:22 WBC RBC Hgb Hct MCV MCHC RDW Plt Count Lymph % (Auto) [place] % (Auto) Lymph # (Auto) [place] # (Auto) Seg Neutrophils % Seg Neuts % (Manual) Lymphocytes % (Manual) Monocytes % (Manual) Seg Neutrophils # Seg Neutrophils # Man Lymphocytes # (Manual) Monocytes # (Manual) PT INR ABG pH POC ABG pCO2 POC ABG pO2 ABG pO2 354.0 H ABG HCO3 ABG O2 Saturation 99.6 H ABG Base Excess ABG Hemoglobin 9.1 L ABG Oxyhemoglobin ABG Sodium ABG Potassium ABG Chloride ABG Glucose Oxyhemoglobin Sodium Potassium 5.2 H Chloride Carbon Dioxide BUN Creatinine Glucose POC Glucose 132 H Lactic Acid Calcium Phosphorus Magnesium Total Bilirubin AST ALT Alkaline Phosphatase Total Protein Albumin Triglycerides Arterial Blood Glucose Arterial Blood Ionized Calcium Digoxin Crossmatch 12/31/20 01/01/21 01/01/21 23:23 03:03 05:04 WBC RBC Hgb Hct MCV MCHC RDW Plt Count Lymph % (Auto) [place] % (Auto) Lymph # (Auto) [place] # (Auto) Seg Neutrophils % Seg Neuts % (Manual) Lymphocytes % (Manual) Monocytes % (Manual) Seg Neutrophils # Seg Neutrophils # Man Lymphocytes # (Manual) Monocytes # (Manual) PT INR ABG pH POC ABG pCO2 POC ABG pO2 79.6 L ABG pO2 ABG HCO3 ABG O2 Saturation ABG Base Excess ABG Hemoglobin 9.2 L ABG Oxyhemoglobin ABG Sodium 131.6 L ABG Potassium 5.8 H ABG Chloride ABG Glucose 177 H Oxyhemoglobin Sodium Potassium Chloride Carbon Dioxide BUN Creatinine Glucose POC Glucose 174 H 167 H Lactic Acid Calcium Phosphorus Magnesium Total Bilirubin AST ALT Alkaline Phosphatase Total Protein Albumin Triglycerides Arterial Blood Glucose 177 H Arterial Blood Ionized Calcium Digoxin Crossmatch 01/01/21 01/01/21 01/01/21 07:31 07:31 11:31 WBC 26.1 H RBC 2.95 L Hgb 8.6 L Hct 27.1 L MCV MCHC RDW 18.2 H Plt Count Lymph % (Auto) [place] % (Auto) Lymph # (Auto) [place] # (Auto) Seg Neutrophils % Seg Neuts % (Manual) 96.0 H Lymphocytes % (Manual) 4.0 L Monocytes % (Manual) Seg Neutrophils # Seg Neutrophils # Man 25.1 H Lymphocytes # (Manual) 1.0 L Monocytes # (Manual) PT INR ABG pH POC ABG pCO2 POC ABG pO2 ABG pO2 ABG HCO3 ABG O2 Saturation ABG Base Excess ABG Hemoglobin ABG Oxyhemoglobin ABG Sodium ABG Potassium ABG Chloride ABG Glucose Oxyhemoglobin Sodium Potassium 6.0 H Chloride Carbon Dioxide 21 L BUN 89 H Creatinine 10.5 H Glucose 179 H POC Glucose Lactic Acid Calcium Phosphorus Magnesium Total Bilirubin AST ALT Alkaline Phosphatase Total Protein Albumin Triglycerides Arterial Blood Glucose Arterial Blood Ionized Calcium Digoxin Crossmatch See Detail 01/01/21 01/01/21 01/01/21 11:51 12:45 16:52 WBC RBC Hgb Hct MCV MCHC RDW Plt Count Lymph % (Auto) [place] % (Auto) Lymph # (Auto) [place] # (Auto) Seg Neutrophils % Seg Neuts % (Manual) Lymphocytes % (Manual) Monocytes % (Manual) Seg Neutrophils # Seg Neutrophils # Man Lymphocytes # (Manual) Monocytes # (Manual) PT 16.9 H INR 1.39 H ABG pH POC ABG pCO2 POC ABG pO2 ABG pO2 ABG HCO3 ABG O2 Saturation ABG Base Excess ABG Hemoglobin ABG Oxyhemoglobin ABG Sodium ABG Potassium ABG Chloride ABG Glucose Oxyhemoglobin Sodium Potassium Chloride Carbon Dioxide BUN Creatinine Glucose POC Glucose 157 H 177 H Lactic Acid Calcium Phosphorus Magnesium Total Bilirubin AST ALT Alkaline Phosphatase Total Protein Albumin Triglycerides Arterial Blood Glucose Arterial Blood Ionized Calcium Digoxin Crossmatch 01/01/21 01/01/21 01/01/21 17:58 17:58 20:12 WBC 26.9 H RBC 3.14 L Hgb 9.3 L Hct 29.6 L MCV MCHC RDW 17.5 H Plt Count Lymph % (Auto) [place] % (Auto) Lymph # (Auto) [place] # (Auto) Seg Neutrophils % Seg Neuts % (Manual) 84.0 H Lymphocytes % (Manual) 4.0 L Monocytes % (Manual) 12.0 H Seg Neutrophils # Seg Neutrophils # Man 22.6 H Lymphocytes # (Manual) 1.1 L Monocytes # (Manual) 3.2 H PT INR ABG pH POC ABG pCO2 POC ABG pO2 ABG pO2 ABG HCO3 ABG O2 Saturation ABG Base Excess ABG Hemoglobin ABG Oxyhemoglobin ABG Sodium ABG Potassium ABG Chloride ABG Glucose Oxyhemoglobin Sodium 136 L Potassium 6.2 H* Chloride Carbon Dioxide 21 L BUN 92 H Creatinine 10.8 H Glucose 171 H POC Glucose 288 H Lactic Acid Calcium Phosphorus Magnesium Total Bilirubin 2.10 H AST 223 H ALT 100 H Alkaline Phosphatase 206 H Total Protein 4.8 L Albumin 1.9 L Triglycerides Arterial Blood Glucose Arterial Blood Ionized Calcium Digoxin Crossmatch 01/02/21 01/02/21 01/02/21 00:12 00:45 03:05 WBC RBC Hgb Hct MCV MCHC RDW Plt Count Lymph % (Auto) [place] % (Auto) Lymph # (Auto) [place] # (Auto) Seg Neutrophils % Seg Neuts % (Manual) Lymphocytes % (Manual) Monocytes % (Manual) Seg Neutrophils # Seg Neutrophils # Man Lymphocytes # (Manual) Monocytes # (Manual) PT INR ABG pH POC ABG pCO2 POC ABG pO2 81.8 L ABG pO2 ABG HCO3 ABG O2 Saturation ABG Base Excess ABG Hemoglobin 8.0 L ABG Oxyhemoglobin ABG Sodium 129.8 L ABG Potassium 5.4 H ABG Chloride ABG Glucose 257 H Oxyhemoglobin Sodium 136 L Potassium 5.8 H Chloride 96.6 L Carbon Dioxide BUN 95 H Creatinine 11.2 H Glucose 238 H POC Glucose 223 H Lactic Acid Calcium Phosphorus Magnesium Total Bilirubin AST ALT Alkaline Phosphatase Total Protein Albumin Triglycerides Arterial Blood Glucose 257 H Arterial Blood Ionized Calcium 4.0 L Digoxin Crossmatch 01/02/21 01/02/21 01/02/21 06:25 08:00 08:00 WBC 17.5 H RBC 2.31 L Hgb 6.7 L Hct 22.1 L D MCV 96 H MCHC 30 L RDW 18.4 H Plt Count Lymph % (Auto) [place] % (Auto) Lymph # (Auto) [place] # (Auto) Seg Neutrophils % Seg Neuts % (Manual) Lymphocytes % (Manual) Monocytes % (Manual) Seg Neutrophils # Seg Neutrophils # Man Lymphocytes # (Manual) Monocytes # (Manual) PT INR ABG pH POC ABG pCO2 POC ABG pO2 ABG pO2 ABG HCO3 ABG O2 Saturation ABG Base Excess ABG Hemoglobin ABG Oxyhemoglobin ABG Sodium ABG Potassium ABG Chloride ABG Glucose Oxyhemoglobin Sodium 134 L Potassium 5.3 H Chloride 92.9 L Carbon Dioxide BUN 101 H Creatinine 10.9 H Glucose 560 H* POC Glucose 239 H Lactic Acid Calcium 7.6 L Phosphorus 6.50 H Magnesium Total Bilirubin AST ALT Alkaline Phosphatase Total Protein Albumin Triglycerides Arterial Blood Glucose Arterial Blood Ionized Calcium Digoxin Crossmatch 01/02/21 01/02/21 01/02/21 11:26 15:00 17:57 WBC RBC Hgb Hct MCV MCHC RDW Plt Count Lymph % (Auto) [place] % (Auto) Lymph # (Auto) [place] # (Auto) Seg Neutrophils % Seg Neuts % (Manual) Lymphocytes % (Manual) Monocytes % (Manual) Seg Neutrophils # Seg Neutrophils # Man Lymphocytes # (Manual) Monocytes # (Manual) PT INR ABG pH POC ABG pCO2 POC ABG pO2 ABG pO2 ABG HCO3 ABG O2 Saturation ABG Base Excess ABG Hemoglobin ABG Oxyhemoglobin ABG Sodium ABG Potassium ABG Chloride ABG Glucose Oxyhemoglobin Sodium Potassium Chloride Carbon Dioxide BUN Creatinine Glucose 241 H POC Glucose 205 H 272 H Lactic Acid Calcium Phosphorus Magnesium Total Bilirubin AST ALT Alkaline Phosphatase Total Protein Albumin Triglycerides Arterial Blood Glucose Arterial Blood Ionized Calcium Digoxin Crossmatch 01/02/21 01/02/21 01/03/21 23:25 23:43 03:45 WBC RBC Hgb Hct MCV MCHC RDW Plt Count Lymph % (Auto) [place] % (Auto) Lymph # (Auto) [place] # (Auto) Seg Neutrophils % Seg Neuts % (Manual) Lymphocytes % (Manual) Monocytes % (Manual) Seg Neutrophils # Seg Neutrophils # Man Lymphocytes # (Manual) Monocytes # (Manual) PT INR ABG pH POC ABG pCO2 48.3 H POC ABG pO2 134.4 H 79.7 L ABG pO2 ABG HCO3 ABG O2 Saturation ABG Base Excess ABG Hemoglobin 7.7 L 8.6 L ABG Oxyhemoglobin ABG Sodium 131.8 L 130.4 L ABG Potassium ABG Chloride 97.0 L ABG Glucose 218 H 238 H Oxyhemoglobin Sodium Potassium Chloride Carbon Dioxide BUN Creatinine Glucose POC Glucose 218 H Lactic Acid Calcium Phosphorus Magnesium Total Bilirubin AST ALT Alkaline Phosphatase Total Protein Albumin Triglycerides Arterial Blood Glucose 218 H 238 H Arterial Blood Ionized Calcium 4.1 L 4.0 L Digoxin Crossmatch 01/03/21 01/03/21 01/03/21 04:37 04:37 05:39 WBC 15.2 H RBC 2.38 L Hgb 7.3 L Hct 21.6 L MCV MCHC RDW 16.6 H Plt Count Lymph % (Auto) [place] % (Auto) Lymph # (Auto) [place] # (Auto) Seg Neutrophils % Seg Neuts % (Manual) Lymphocytes % (Manual) Monocytes % (Manual) Seg Neutrophils # Seg Neutrophils # Man Lymphocytes # (Manual) Monocytes # (Manual) PT INR ABG pH POC ABG pCO2 POC ABG pO2 ABG pO2 ABG HCO3 ABG O2 Saturation ABG Base Excess ABG Hemoglobin ABG Oxyhemoglobin ABG Sodium ABG Potassium ABG Chloride ABG Glucose Oxyhemoglobin Sodium 136 L Potassium Chloride 94.5 L Carbon Dioxide BUN 69 H Creatinine 8.0 H Glucose 219 H POC Glucose 222 H Lactic Acid Calcium 7.8 L Phosphorus 4.80 H D Magnesium Total Bilirubin AST ALT Alkaline Phosphatase Total Protein Albumin Triglycerides Arterial Blood Glucose Arterial Blood Ionized Calcium Digoxin Crossmatch 01/03/21 01/03/21 01/03/21 11:29 18:49 23:37 WBC RBC Hgb Hct MCV MCHC RDW Plt Count Lymph % (Auto) [place] % (Auto) Lymph # (Auto) [place] # (Auto) Seg Neutrophils % Seg Neuts % (Manual) Lymphocytes % (Manual) Monocytes % (Manual) Seg Neutrophils # Seg Neutrophils # Man Lymphocytes # (Manual) Monocytes # (Manual) PT INR ABG pH POC ABG pCO2 POC ABG pO2 ABG pO2 ABG HCO3 ABG O2 Saturation ABG Base Excess ABG Hemoglobin ABG Oxyhemoglobin ABG Sodium ABG Potassium ABG Chloride ABG Glucose Oxyhemoglobin Sodium Potassium Chloride Carbon Dioxide BUN Creatinine Glucose POC Glucose 232 H 129 H 140 H Lactic Acid Calcium Phosphorus Magnesium Total Bilirubin AST ALT Alkaline Phosphatase Total Protein Albumin Triglycerides Arterial Blood Glucose Arterial Blood Ionized Calcium Digoxin Crossmatch 01/04/21 01/04/21 01/04/21 03:22 04:38 04:38 WBC 11.1 H RBC 2.89 L Hgb 8.9 L Hct 26.2 L MCV MCHC RDW 16.1 H Plt Count Lymph % (Auto) [place] % (Auto) Lymph # (Auto) [place] # (Auto) Seg Neutrophils % Seg Neuts % (Manual) Lymphocytes % (Manual) Monocytes % (Manual) Seg Neutrophils # Seg Neutrophils # Man Lymphocytes # (Manual) Monocytes # (Manual) PT INR ABG pH POC ABG pCO2 POC ABG pO2 82.3 L ABG pO2 ABG HCO3 ABG O2 Saturation ABG Base Excess ABG Hemoglobin 8.9 L ABG Oxyhemoglobin ABG Sodium 130.5 L ABG Potassium ABG Chloride ABG Glucose 124 H Oxyhemoglobin Sodium Potassium Chloride 95.5 L Carbon Dioxide BUN 87 H Creatinine 9.7 H Glucose 118 H POC Glucose Lactic Acid Calcium 7.7 L Phosphorus Magnesium Total Bilirubin AST ALT Alkaline Phosphatase Total Protein Albumin Triglycerides Arterial Blood Glucose 124 H Arterial Blood Ionized Calcium 3.5 L Digoxin Crossmatch 01/04/21 01/04/21 01/04/21 05:39 12:04 18:04 WBC RBC Hgb Hct MCV MCHC RDW Plt Count Lymph % (Auto) [place] % (Auto) Lymph # (Auto) [place] # (Auto) Seg Neutrophils % Seg Neuts % (Manual) Lymphocytes % (Manual) Monocytes % (Manual) Seg Neutrophils # Seg Neutrophils # Man Lymphocytes # (Manual) Monocytes # (Manual) PT INR ABG pH POC ABG pCO2 POC ABG pO2 ABG pO2 ABG HCO3 ABG O2 Saturation ABG Base Excess ABG Hemoglobin ABG Oxyhemoglobin ABG Sodium ABG Potassium ABG Chloride ABG Glucose Oxyhemoglobin Sodium Potassium Chloride Carbon Dioxide BUN Creatinine Glucose POC Glucose 134 H 125 H 131 H Lactic Acid Calcium Phosphorus Magnesium Total Bilirubin AST ALT Alkaline Phosphatase Total Protein Albumin Triglycerides Arterial Blood Glucose Arterial Blood Ionized Calcium Digoxin Crossmatch 01/04/21 01/05/21 01/05/21 23:41 03:23 04:49 WBC RBC Hgb Hct MCV MCHC RDW Plt Count Lymph % (Auto) [place] % (Auto) Lymph # (Auto) [place] # (Auto) Seg Neutrophils % Seg Neuts % (Manual) Lymphocytes % (Manual) Monocytes % (Manual) Seg Neutrophils # Seg Neutrophils # Man Lymphocytes # (Manual) Monocytes # (Manual) PT INR ABG pH POC ABG pCO2 POC ABG pO2 62.8 L ABG pO2 ABG HCO3 ABG O2 Saturation ABG Base Excess ABG Hemoglobin 9.5 L ABG Oxyhemoglobin 92.0 L ABG Sodium 130.1 L ABG Potassium ABG Chloride ABG Glucose 148 H Oxyhemoglobin Sodium Potassium Chloride 96.9 L Carbon Dioxide BUN 57 H Creatinine 6.7 H Glucose 135 H POC Glucose 132 H Lactic Acid Calcium 8.0 L Phosphorus Magnesium Total Bilirubin AST ALT Alkaline Phosphatase Total Protein Albumin Triglycerides Arterial Blood Glucose 148 H Arterial Blood Ionized Calcium 4.1 L Digoxin Crossmatch 01/05/21 01/05/21 01/05/21 05:04 11:48 12:39 WBC RBC 3.03 L Hgb 9.3 L Hct 27.6 L MCV MCHC RDW 16.5 H Plt Count Lymph % (Auto) [place] % (Auto) Lymph # (Auto) [place] # (Auto) Seg Neutrophils % Seg Neuts % (Manual) Lymphocytes % (Manual) Monocytes % (Manual) Seg Neutrophils # Seg Neutrophils # Man Lymphocytes # (Manual) Monocytes # (Manual) PT INR ABG pH POC ABG pCO2 POC ABG pO2 ABG pO2 ABG HCO3 ABG O2 Saturation ABG Base Excess ABG Hemoglobin ABG Oxyhemoglobin ABG Sodium ABG Potassium ABG Chloride ABG Glucose Oxyhemoglobin Sodium Potassium Chloride Carbon Dioxide BUN Creatinine Glucose POC Glucose 147 H 162 H Lactic Acid Calcium Phosphorus Magnesium Total Bilirubin AST ALT Alkaline Phosphatase Total Protein Albumin Triglycerides Arterial Blood Glucose Arterial Blood Ionized Calcium Digoxin Crossmatch 01/05/21 01/05/21 01/06/21 17:50 23:32 04:15 WBC RBC Hgb Hct MCV MCHC RDW Plt Count Lymph % (Auto) [place] % (Auto) Lymph # (Auto) [place] # (Auto) Seg Neutrophils % Seg Neuts % (Manual) Lymphocytes % (Manual) Monocytes % (Manual) Seg Neutrophils # Seg Neutrophils # Man Lymphocytes # (Manual) Monocytes # (Manual) PT INR ABG pH POC ABG pCO2 POC ABG pO2 ABG pO2 191.0 H ABG HCO3 ABG O2 Saturation 99.2 H ABG Base Excess ABG Hemoglobin 9.0 L ABG Oxyhemoglobin ABG Sodium ABG Potassium ABG Chloride ABG Glucose Oxyhemoglobin Sodium Potassium Chloride Carbon Dioxide BUN Creatinine Glucose POC Glucose 155 H 115 H Lactic Acid Calcium Phosphorus Magnesium Total Bilirubin AST ALT Alkaline Phosphatase Total Protein Albumin Triglycerides Arterial Blood Glucose Arterial Blood Ionized Calcium Digoxin Crossmatch 01/06/21 01/06/21 01/06/21 04:45 05:56 07:03 WBC RBC 2.95 L Hgb 9.1 L Hct 26.8 L MCV MCHC RDW 16.8 H Plt Count Lymph % (Auto) [place] % (Auto) Lymph # (Auto) [place] # (Auto) Seg Neutrophils % Seg Neuts % (Manual) Lymphocytes % (Manual) Monocytes % (Manual) Seg Neutrophils # Seg Neutrophils # Man Lymphocytes # (Manual) Monocytes # (Manual) PT INR ABG pH POC ABG pCO2 POC ABG pO2 ABG pO2 ABG HCO3 ABG O2 Saturation ABG Base Excess ABG Hemoglobin ABG Oxyhemoglobin ABG Sodium ABG Potassium ABG Chloride ABG Glucose Oxyhemoglobin Sodium 135 L Potassium Chloride 95.9 L Carbon Dioxide BUN 82 H Creatinine 8.7 H Glucose 127 H POC Glucose 136 H Lactic Acid Calcium 8.3 L Phosphorus Magnesium Total Bilirubin AST ALT Alkaline Phosphatase Total Protein Albumin Triglycerides Arterial Blood Glucose Arterial Blood Ionized Calcium Digoxin Crossmatch 01/06/21 01/06/21 01/06/21 07:10 11:04 13:38 WBC RBC Hgb Hct MCV MCHC RDW Plt Count Lymph % (Auto) [place] % (Auto) Lymph # (Auto) [place] # (Auto) Seg Neutrophils % Seg Neuts % (Manual) Lymphocytes % (Manual) Monocytes % (Manual) Seg Neutrophils # Seg Neutrophils # Man Lymphocytes # (Manual) Monocytes # (Manual) PT INR ABG pH POC ABG pCO2 POC ABG pO2 ABG pO2 ABG HCO3 ABG O2 Saturation ABG Base Excess ABG Hemoglobin ABG Oxyhemoglobin ABG Sodium ABG Potassium ABG Chloride ABG Glucose Oxyhemoglobin Sodium Potassium Chloride Carbon Dioxide BUN Creatinine Glucose POC Glucose 178 H 155 H Lactic Acid Calcium Phosphorus Magnesium Total Bilirubin AST ALT Alkaline Phosphatase Total Protein Albumin Triglycerides Arterial Blood Glucose Arterial Blood Ionized Calcium Digoxin Crossmatch See Detail 01/06/21 01/06/21 01/07/21 17:35 22:21 03:07 WBC RBC Hgb Hct MCV MCHC RDW Plt Count Lymph % (Auto) [place] % (Auto) Lymph # (Auto) [place] # (Auto) Seg Neutrophils % Seg Neuts % (Manual) Lymphocytes % (Manual) Monocytes % (Manual) Seg Neutrophils # Seg Neutrophils # Man Lymphocytes # (Manual) Monocytes # (Manual) PT INR ABG pH POC ABG pCO2 POC ABG pO2 ABG pO2 ABG HCO3 ABG O2 Saturation ABG Base Excess ABG Hemoglobin 11.9 L ABG Oxyhemoglobin ABG Sodium 135.6 L ABG Potassium ABG Chloride ABG Glucose 181 H Oxyhemoglobin Sodium Potassium Chloride Carbon Dioxide BUN Creatinine Glucose POC Glucose 138 H 202 H Lactic Acid Calcium Phosphorus Magnesium Total Bilirubin AST ALT Alkaline Phosphatase Total Protein Albumin Triglycerides Arterial Blood Glucose 181 H Arterial Blood Ionized Calcium 4.3 L Digoxin Crossmatch 01/07/21 01/07/21 01/07/21 04:50 05:21 08:37 WBC 12.4 H RBC Hgb 11.1 L Hct 33.3 L D MCV MCHC RDW 17.0 H Plt Count Lymph % (Auto) 3.2 L [place] % (Auto) 9.4 H Lymph # (Auto) 0.4 L [place] # (Auto) 1.2 H Seg Neutrophils % 86.6 H Seg Neuts % (Manual) Lymphocytes % (Manual) Monocytes % (Manual) Seg Neutrophils # 10.7 H Seg Neutrophils # Man Lymphocytes # (Manual) Monocytes # (Manual) PT INR ABG pH POC ABG pCO2 POC ABG pO2 ABG pO2 ABG HCO3 ABG O2 Saturation ABG Base Excess ABG Hemoglobin ABG Oxyhemoglobin ABG Sodium ABG Potassium ABG Chloride ABG Glucose Oxyhemoglobin Sodium Potassium Chloride Carbon Dioxide BUN 60 H Creatinine 6.3 H Glucose 154 H POC Glucose 177 H Lactic Acid Calcium 8.3 L Phosphorus Magnesium Total Bilirubin AST ALT Alkaline Phosphatase Total Protein Albumin Triglycerides Arterial Blood Glucose Arterial Blood Ionized Calcium Digoxin Crossmatch 01/07/21 01/07/21 01/07/21 11:21 12:19 17:11 WBC RBC Hgb Hct MCV MCHC RDW Plt Count Lymph % (Auto) [place] % (Auto) Lymph # (Auto) [place] # (Auto) Seg Neutrophils % Seg Neuts % (Manual) Lymphocytes % (Manual) Monocytes % (Manual) Seg Neutrophils # Seg Neutrophils # Man Lymphocytes # (Manual) Monocytes # (Manual) PT INR ABG pH POC ABG pCO2 POC ABG pO2 ABG pO2 ABG HCO3 ABG O2 Saturation ABG Base Excess ABG Hemoglobin ABG Oxyhemoglobin ABG Sodium ABG Potassium ABG Chloride ABG Glucose Oxyhemoglobin Sodium Potassium Chloride Carbon Dioxide BUN Creatinine Glucose POC Glucose 144 H 137 H 119 H Lactic Acid Calcium Phosphorus Magnesium Total Bilirubin AST ALT Alkaline Phosphatase Total Protein Albumin Triglycerides Arterial Blood Glucose Arterial Blood Ionized Calcium Digoxin Crossmatch 01/07/21 01/07/21 01/08/21 17:14 23:39 04:34 WBC RBC Hgb Hct MCV MCHC RDW Plt Count Lymph % (Auto) [place] % (Auto) Lymph # (Auto) [place] # (Auto) Seg Neutrophils % Seg Neuts % (Manual) Lymphocytes % (Manual) Monocytes % (Manual) Seg Neutrophils # Seg Neutrophils # Man Lymphocytes # (Manual) Monocytes # (Manual) PT INR ABG pH 7.345 L POC ABG pCO2 POC ABG pO2 ABG pO2 67.4 L ABG HCO3 ABG O2 Saturation 94.3 L ABG Base Excess -3.9 L ABG Hemoglobin 8.9 L ABG Oxyhemoglobin ABG Sodium ABG Potassium ABG Chloride ABG Glucose Oxyhemoglobin 92.3 L Sodium Potassium Chloride Carbon Dioxide 20 L BUN 93 H Creatinine 8.8 H Glucose 120 H POC Glucose 129 H Lactic Acid Calcium Phosphorus Magnesium Total Bilirubin AST ALT Alkaline Phosphatase 133 H Total Protein 5.4 L Albumin 1.9 L Triglycerides Arterial Blood Glucose Arterial Blood Ionized Calcium Digoxin Crossmatch 01/08/21 01/08/21 01/08/21 05:26 11:38 17:19 WBC RBC Hgb Hct MCV MCHC RDW Plt Count Lymph % (Auto) [place] % (Auto) Lymph # (Auto) [place] # (Auto) Seg Neutrophils % Seg Neuts % (Manual) Lymphocytes % (Manual) Monocytes % (Manual) Seg Neutrophils # Seg Neutrophils # Man Lymphocytes # (Manual) Monocytes # (Manual) PT INR ABG pH POC ABG pCO2 POC ABG pO2 ABG pO2 ABG HCO3 ABG O2 Saturation ABG Base Excess ABG Hemoglobin ABG Oxyhemoglobin ABG Sodium ABG Potassium ABG Chloride ABG Glucose Oxyhemoglobin Sodium Potassium Chloride Carbon Dioxide BUN Creatinine Glucose POC Glucose 125 H 146 H 136 H Lactic Acid Calcium Phosphorus Magnesium Total Bilirubin AST ALT Alkaline Phosphatase Total Protein Albumin Triglycerides Arterial Blood Glucose Arterial Blood Ionized Calcium Digoxin Crossmatch 01/08/21 01/09/21 01/09/21 23:52 05:13 05:21 WBC RBC Hgb Hct MCV MCHC RDW Plt Count Lymph % (Auto) [place] % (Auto) Lymph # (Auto) [place] # (Auto) Seg Neutrophils % Seg Neuts % (Manual) Lymphocytes % (Manual) Monocytes % (Manual) Seg Neutrophils # Seg Neutrophils # Man Lymphocytes # (Manual) Monocytes # (Manual) PT INR ABG pH POC ABG pCO2 POC ABG pO2 ABG pO2 ABG HCO3 ABG O2 Saturation ABG Base Excess ABG Hemoglobin ABG Oxyhemoglobin ABG Sodium ABG Potassium ABG Chloride ABG Glucose Oxyhemoglobin Sodium Potassium Chloride Carbon Dioxide 16 L BUN 123 H Creatinine 10.8 H Glucose 145 H POC Glucose 143 H 144 H Lactic Acid Calcium Phosphorus 5.00 H D Magnesium 2.40 H Total Bilirubin AST ALT Alkaline Phosphatase Total Protein Albumin Triglycerides Arterial Blood Glucose Arterial Blood Ionized Calcium Digoxin Crossmatch 01/09/21 01/09/21 01/09/21 12:08 17:20 23:56 WBC RBC Hgb Hct MCV MCHC RDW Plt Count Lymph % (Auto) [place] % (Auto) Lymph # (Auto) [place] # (Auto) Seg Neutrophils % Seg Neuts % (Manual) Lymphocytes % (Manual) Monocytes % (Manual) Seg Neutrophils # Seg Neutrophils # Man Lymphocytes # (Manual) Monocytes # (Manual) PT INR ABG pH POC ABG pCO2 POC ABG pO2 ABG pO2 ABG HCO3 ABG O2 Saturation ABG Base Excess ABG Hemoglobin ABG Oxyhemoglobin ABG Sodium ABG Potassium ABG Chloride ABG Glucose Oxyhemoglobin Sodium Potassium Chloride Carbon Dioxide BUN Creatinine Glucose POC Glucose 153 H 160 H 158 H Lactic Acid Calcium Phosphorus Magnesium Total Bilirubin AST ALT Alkaline Phosphatase Total Protein Albumin Triglycerides Arterial Blood Glucose Arterial Blood Ionized Calcium Digoxin Crossmatch 01/10/21 01/10/21 01/10/21 04:52 05:44 07:41 WBC RBC Hgb Hct MCV MCHC RDW Plt Count Lymph % (Auto) [place] % (Auto) Lymph # (Auto) [place] # (Auto) Seg Neutrophils % Seg Neuts % (Manual) Lymphocytes % (Manual) Monocytes % (Manual) Seg Neutrophils # Seg Neutrophils # Man Lymphocytes # (Manual) Monocytes # (Manual) PT INR ABG pH POC ABG pCO2 POC ABG pO2 ABG pO2 ABG HCO3 ABG O2 Saturation ABG Base Excess ABG Hemoglobin ABG Oxyhemoglobin ABG Sodium ABG Potassium ABG Chloride ABG Glucose Oxyhemoglobin Sodium 135 L Potassium 3.5 L D Chloride 95.0 L Carbon Dioxide 21 L BUN 93 H Creatinine 8.3 H Glucose 127 H POC Glucose 135 H 157 H Lactic Acid Calcium Phosphorus Magnesium Total Bilirubin AST ALT Alkaline Phosphatase Total Protein Albumin Triglycerides Arterial Blood Glucose Arterial Blood Ionized Calcium Digoxin Crossmatch 01/10/21 01/10/21 01/10/21 09:26 12:03 17:44 WBC 18.2 H RBC 3.14 L Hgb 9.7 L Hct 28.2 L MCV MCHC RDW 16.5 H Plt Count Lymph % (Auto) [place] % (Auto) Lymph # (Auto) [place] # (Auto) Seg Neutrophils % Seg Neuts % (Manual) 95.0 H Lymphocytes % (Manual) 3.0 L Monocytes % (Manual) Seg Neutrophils # Seg Neutrophils # Man 17.3 H Lymphocytes # (Manual) 0.5 L Monocytes # (Manual) PT INR ABG pH POC ABG pCO2 POC ABG pO2 ABG pO2 ABG HCO3 ABG O2 Saturation ABG Base Excess ABG Hemoglobin ABG Oxyhemoglobin ABG Sodium ABG Potassium ABG Chloride ABG Glucose Oxyhemoglobin Sodium Potassium Chloride Carbon Dioxide BUN Creatinine Glucose POC Glucose 163 H 171 H Lactic Acid Calcium Phosphorus Magnesium Total Bilirubin AST ALT Alkaline Phosphatase Total Protein Albumin Triglycerides Arterial Blood Glucose Arterial Blood Ionized Calcium Digoxin Crossmatch 01/10/21 01/11/2101/11/21 23:50 05:18 05:18 WBC RBC Hgb Hct MCV MCHC RDW Plt Count Lymph % (Auto) [place] % (Auto) Lymph # (Auto) [place] # (Auto) Seg Neutrophils % Seg Neuts % (Manual) Lymphocytes % (Manual) Monocytes % (Manual) Seg Neutrophils # Seg Neutrophils # Man Lymphocytes # (Manual) Monocytes # (Manual) PT INR ABG pH POC ABG pCO2 POC ABG pO2 ABG pO2 ABG HCO3 ABG O2 Saturation ABG Base Excess ABG Hemoglobin ABG Oxyhemoglobin ABG Sodium ABG Potassium ABG Chloride ABG Glucose Oxyhemoglobin Sodium 136 L Potassium Chloride 94.6 L Carbon Dioxide 19 L BUN 145 H Creatinine 10.6 H Glucose 152 H POC Glucose 151 H Lactic Acid Calcium Phosphorus 6.00 H D Magnesium Total Bilirubin AST ALT Alkaline Phosphatase Total Protein Albumin Triglycerides Arterial Blood Glucose Arterial Blood Ionized Calcium Digoxin 0.8 L Crossmatch 01/11/21 01/11/21 01/11/21 05:18 05:19 11:28 WBC 17.4 H RBC 3.34 L Hgb 10.2 L Hct 29.7 L MCV MCHC RDW 15.9 H Plt Count Lymph % (Auto) [place] % (Auto) Lymph # (Auto) [place] # (Auto) Seg Neutrophils % Seg Neuts % (Manual) Lymphocytes % (Manual) Monocytes % (Manual) Seg Neutrophils # Seg Neutrophils # Man Lymphocytes # (Manual) Monocytes # (Manual) PT INR ABG pH POC ABG pCO2 POC ABG pO2 ABG pO2 ABG HCO3 ABG O2 Saturation ABG Base Excess ABG Hemoglobin ABG Oxyhemoglobin ABG Sodium ABG Potassium ABG Chloride ABG Glucose Oxyhemoglobin Sodium Potassium Chloride Carbon Dioxide BUN Creatinine Glucose POC Glucose 149 H 178 H Lactic Acid Calcium Phosphorus Magnesium Total Bilirubin AST ALT Alkaline Phosphatase Total Protein Albumin Triglycerides Arterial Blood Glucose Arterial Blood Ionized Calcium Digoxin Crossmatch 01/11/21 01/11/21 01/12/21 17:31 23:14 05:18 WBC RBC Hgb Hct MCV MCHC RDW Plt Count Lymph % (Auto) [place] % (Auto) Lymph # (Auto) [place] # (Auto) Seg Neutrophils % Seg Neuts % (Manual) Lymphocytes % (Manual) Monocytes % (Manual) Seg Neutrophils # Seg Neutrophils # Man Lymphocytes # (Manual) Monocytes # (Manual) PT INR ABG pH POC ABG pCO2 POC ABG pO2 ABG pO2 ABG HCO3 ABG O2 Saturation ABG Base Excess ABG Hemoglobin ABG Oxyhemoglobin ABG Sodium ABG Potassium ABG Chloride ABG Glucose Oxyhemoglobin Sodium Potassium Chloride Carbon Dioxide BUN Creatinine Glucose POC Glucose 158 H 145 H 148 H Lactic Acid Calcium Phosphorus Magnesium Total Bilirubin AST ALT Alkaline Phosphatase Total Protein Albumin Triglycerides Arterial Blood Glucose Arterial Blood Ionized Calcium Digoxin Crossmatch 01/12/21 01/12/21 01/12/21 06:50 10:45 13:34 WBC RBC Hgb Hct MCV MCHC RDW Plt Count Lymph % (Auto) [place] % (Auto) Lymph # (Auto) [place] # (Auto) Seg Neutrophils % Seg Neuts % (Manual) Lymphocytes % (Manual) Monocytes % (Manual) Seg Neutrophils # Seg Neutrophils # Man Lymphocytes # (Manual) Monocytes # (Manual) PT INR ABG pH POC ABG pCO2 POC ABG pO2 ABG pO2 ABG HCO3 ABG O2 Saturation ABG Base Excess ABG Hemoglobin ABG Oxyhemoglobin ABG Sodium ABG Potassium ABG Chloride ABG Glucose Oxyhemoglobin Sodium Potassium 2.9 L* D Chloride 94.8 L Carbon Dioxide BUN 102 H Creatinine 8.3 H Glucose 139 H POC Glucose 151 H 134 H Lactic Acid Calcium 8.1 L Phosphorus 5.00 H Magnesium Total Bilirubin AST ALT Alkaline Phosphatase Total Protein Albumin Triglycerides Arterial Blood Glucose Arterial Blood Ionized Calcium Digoxin Crossmatch 01/12/21 01/12/21 01/13/21 16:59 23:06 03:45 WBC RBC Hgb Hct MCV MCHC RDW Plt Count Lymph % (Auto) [place] % (Auto) Lymph # (Auto) [place] # (Auto) Seg Neutrophils % Seg Neuts % (Manual) Lymphocytes % (Manual) Monocytes % (Manual) Seg Neutrophils # Seg Neutrophils # Man Lymphocytes # (Manual) Monocytes # (Manual) PT INR ABG pH POC ABG pCO2 POC ABG pO2 ABG pO2 ABG HCO3 ABG O2 Saturation ABG Base Excess ABG Hemoglobin ABG Oxyhemoglobin ABG Sodium ABG Potassium ABG Chloride ABG Glucose Oxyhemoglobin Sodium 136 L Potassium 3.4 L Chloride 92.6 L Carbon Dioxide BUN 134 H Creatinine 10.4 H Glucose 126 H POC Glucose 108 H 135 H Lactic Acid Calcium 8.3 L Phosphorus 5.60 H Magnesium 1.50 L Total Bilirubin AST ALT Alkaline Phosphatase Total Protein Albumin Triglycerides Arterial Blood Glucose Arterial Blood Ionized Calcium Digoxin Crossmatch 01/13/21 01/13/21 01/13/21 03:45 05:55 11:59 WBC 17.6 H RBC 3.33 L Hgb 10.2 L Hct 29.5 L MCV MCHC 35 H RDW 15.5 H Plt Count Lymph % (Auto) 4.4 L [place] % (Auto) 10.3 H Lymph # (Auto) 0.8 L [place] # (Auto) 1.8 H Seg Neutrophils % 84.2 H Seg Neuts % (Manual) Lymphocytes % (Manual) Monocytes % (Manual) Seg Neutrophils # 14.8 H Seg Neutrophils # Man Lymphocytes # (Manual) Monocytes # (Manual) PT INR ABG pH POC ABG pCO2 POC ABG pO2 ABG pO2 ABG HCO3 ABG O2 Saturation ABG Base Excess ABG Hemoglobin ABG Oxyhemoglobin ABG Sodium ABG Potassium ABG Chloride ABG Glucose Oxyhemoglobin Sodium Potassium Chloride Carbon Dioxide BUN Creatinine Glucose POC Glucose 134 H 141 H Lactic Acid Calcium Phosphorus Magnesium Total Bilirubin AST ALT Alkaline Phosphatase Total Protein Albumin Triglycerides Arterial Blood Glucose Arterial Blood Ionized Calcium Digoxin Crossmatch 01/13/21 01/14/21 01/14/21 23:09 05:39 05:57 WBC RBC Hgb Hct MCV MCHC RDW Plt Count Lymph % (Auto) [place] % (Auto) Lymph # (Auto) [place] # (Auto) Seg Neutrophils % Seg Neuts % (Manual) Lymphocytes % (Manual) Monocytes % (Manual) Seg Neutrophils # Seg Neutrophils # Man Lymphocytes # (Manual) Monocytes # (Manual) PT INR ABG pH POC ABG pCO2 POC ABG pO2 ABG pO2 ABG HCO3 ABG O2 Saturation ABG Base Excess ABG Hemoglobin ABG Oxyhemoglobin ABG Sodium ABG Potassium ABG Chloride ABG Glucose Oxyhemoglobin Sodium Potassium Chloride 97.6 L Carbon Dioxide BUN 81 H Creatinine 7.6 H Glucose 193 H POC Glucose 106 H 190 H Lactic Acid Calcium 8.2 L Phosphorus 4.60 H Magnesium Total Bilirubin AST ALT Alkaline Phosphatase Total Protein Albumin Triglycerides Arterial Blood Glucose Arterial Blood Ionized Calcium Digoxin Crossmatch 01/14/21 01/14/21 01/14/21 10:00 16:56 16:59 WBC 17.0 H RBC 3.10 L Hgb 9.6 L Hct 27.4 L MCV MCHC 35 H RDW 15.6 H Plt Count Lymph % (Auto) [place] % (Auto) Lymph # (Auto) [place] # (Auto) Seg Neutrophils % Seg Neuts % (Manual) Lymphocytes % (Manual) Monocytes % (Manual) Seg Neutrophils # Seg Neutrophils # Man Lymphocytes # (Manual) Monocytes # (Manual) PT INR ABG pH POC ABG pCO2 POC ABG pO2 ABG pO2 ABG HCO3 ABG O2 Saturation ABG Base Excess ABG Hemoglobin ABG Oxyhemoglobin ABG Sodium ABG Potassium ABG Chloride ABG Glucose Oxyhemoglobin Sodium Potassium Chloride Carbon Dioxide BUN Creatinine Glucose POC Glucose 37 L 34 L Lactic Acid Calcium Phosphorus Magnesium Total Bilirubin AST ALT Alkaline Phosphatase Total Protein Albumin Triglycerides Arterial Blood Glucose Arterial Blood Ionized Calcium Digoxin Crossmatch 01/14/21 01/14/21 01/14/21 17:02 18:34 23:17 WBC RBC Hgb Hct MCV MCHC RDW Plt Count Lymph % (Auto) [place] % (Auto) Lymph # (Auto) [place] # (Auto) Seg Neutrophils % Seg Neuts % (Manual) Lymphocytes % (Manual) Monocytes % (Manual) Seg Neutrophils # Seg Neutrophils # Man Lymphocytes # (Manual) Monocytes # (Manual) PT INR ABG pH POC ABG pCO2 POC ABG pO2 ABG pO2 ABG HCO3 ABG O2 Saturation ABG Base Excess ABG Hemoglobin ABG Oxyhemoglobin ABG Sodium ABG Potassium ABG Chloride ABG Glucose Oxyhemoglobin Sodium Potassium Chloride Carbon Dioxide BUN Creatinine Glucose POC Glucose 35 L 143 H 53 L Lactic Acid Calcium Phosphorus Magnesium Total Bilirubin AST ALT Alkaline Phosphatase Total Protein Albumin Triglycerides Arterial Blood Glucose Arterial Blood Ionized Calcium Digoxin Crossmatch 01/15/21 01/15/21 01/15/21 00:34 04:00 04:00 WBC 15.9 H RBC 3.02 L Hgb 9.3 L Hct 27.3 L MCV MCHC RDW 15.6 H Plt Count Lymph % (Auto) [place] % (Auto) Lymph # (Auto) [place] # (Auto) Seg Neutrophils % Seg Neuts % (Manual) Lymphocytes % (Manual) Monocytes % (Manual) Seg Neutrophils # Seg Neutrophils # Man Lymphocytes # (Manual) Monocytes # (Manual) PT INR ABG pH POC ABG pCO2 POC ABG pO2 ABG pO2 ABG HCO3 ABG O2 Saturation ABG Base Excess ABG Hemoglobin ABG Oxyhemoglobin ABG Sodium ABG Potassium ABG Chloride ABG Glucose Oxyhemoglobin Sodium 136 L Potassium Chloride 94.3 L Carbon Dioxide BUN 117 H Creatinine 9.9 H Glucose 217 H POC Glucose 181 H Lactic Acid Calcium 8.3 L Phosphorus Magnesium Total Bilirubin AST ALT Alkaline Phosphatase Total Protein Albumin Triglycerides Arterial Blood Glucose Arterial Blood Ionized Calcium Digoxin Crossmatch 01/15/21 01/15/21 01/15/21 05:29 11:51 23:13 WBC RBC Hgb Hct MCV MCHC RDW Plt Count Lymph % (Auto) [place] % (Auto) Lymph # (Auto) [place] # (Auto) Seg Neutrophils % Seg Neuts % (Manual) Lymphocytes % (Manual) Monocytes % (Manual) Seg Neutrophils # Seg Neutrophils # Man Lymphocytes # (Manual) Monocytes # (Manual) PT INR ABG pH POC ABG pCO2 POC ABG pO2 ABG pO2 ABG HCO3 ABG O2 Saturation ABG Base Excess ABG Hemoglobin ABG Oxyhemoglobin ABG Sodium ABG Potassium ABG Chloride ABG Glucose Oxyhemoglobin Sodium Potassium Chloride Carbon Dioxide BUN Creatinine Glucose POC Glucose 221 H 62 L 154 H Lactic Acid Calcium Phosphorus Magnesium Total Bilirubin AST ALT Alkaline Phosphatase Total Protein Albumin Triglycerides Arterial Blood Glucose Arterial Blood Ionized Calcium Digoxin Crossmatch 01/16/21 01/16/21 01/16/21 05:04 06:44 06:44 WBC 14.8 H RBC 2.76 L Hgb 8.2 L Hct 24.8 L MCV MCHC RDW 15.6 H Plt Count Lymph % (Auto) [place] % (Auto) Lymph # (Auto) [place] # (Auto) Seg Neutrophils % Seg Neuts % (Manual) Lymphocytes % (Manual) Monocytes % (Manual) Seg Neutrophils # Seg Neutrophils # Man Lymphocytes # (Manual) Monocytes # (Manual) PT INR ABG pH POC ABG pCO2 POC ABG pO2 ABG pO2 ABG HCO3 ABG O2 Saturation ABG Base Excess ABG Hemoglobin ABG Oxyhemoglobin ABG Sodium ABG Potassium ABG Chloride ABG Glucose Oxyhemoglobin Sodium 133 L Potassium Chloride 92.3 L Carbon Dioxide 20 L BUN 160 H Creatinine 12.1 H Glucose 177 H POC Glucose 168 H Lactic Acid Calcium 8.1 L Phosphorus 5.50 H Magnesium 2.50 H Total Bilirubin AST ALT Alkaline Phosphatase Total Protein Albumin Triglycerides Arterial Blood Glucose Arterial Blood Ionized Calcium Digoxin Crossmatch 01/16/21 01/17/21 01/17/21 23:20 05:14 05:14 WBC 12.7 H RBC 2.75 L Hgb 8.5 L Hct 24.6 L MCV MCHC 35 H RDW 15.4 H Plt Count Lymph % (Auto) [place] % (Auto) Lymph # (Auto) [place] # (Auto) Seg Neutrophils % Seg Neuts % (Manual) Lymphocytes % (Manual) Monocytes % (Manual) Seg Neutrophils # Seg Neutrophils # Man Lymphocytes # (Manual) Monocytes # (Manual) PT INR ABG pH POC ABG pCO2 POC ABG pO2 ABG pO2 ABG HCO3 ABG O2 Saturation ABG Base Excess ABG Hemoglobin ABG Oxyhemoglobin ABG Sodium ABG Potassium ABG Chloride ABG Glucose Oxyhemoglobin Sodium Potassium Chloride 97.9 L Carbon Dioxide BUN 84 H Creatinine 7.8 H Glucose 176 H POC Glucose 153 H Lactic Acid Calcium 8.0 L Phosphorus Magnesium Total Bilirubin AST ALT Alkaline Phosphatase Total Protein Albumin Triglycerides Arterial Blood Glucose Arterial Blood Ionized Calcium Digoxin Crossmatch 01/17/21 01/17/21 01/18/21 05:33 11:58 00:07 WBC RBC Hgb Hct MCV MCHC RDW Plt Count Lymph % (Auto) [place] % (Auto) Lymph # (Auto) [place] # (Auto) Seg Neutrophils % Seg Neuts % (Manual) Lymphocytes % (Manual) Monocytes % (Manual) Seg Neutrophils # Seg Neutrophils # Man Lymphocytes # (Manual) Monocytes # (Manual) PT INR ABG pH POC ABG pCO2 POC ABG pO2 ABG pO2 ABG HCO3 ABG O2 Saturation ABG Base Excess ABG Hemoglobin ABG Oxyhemoglobin ABG Sodium ABG Potassium ABG Chloride ABG Glucose Oxyhemoglobin Sodium Potassium Chloride Carbon Dioxide BUN Creatinine Glucose POC Glucose 162 H 64 L 146 H Lactic Acid Calcium Phosphorus Magnesium Total Bilirubin AST ALT Alkaline Phosphatase Total Protein Albumin Triglycerides Arterial Blood Glucose Arterial Blood Ionized Calcium Digoxin Crossmatch 01/18/21 01/18/21 01/18/21 04:19 04:19 06:15 WBC 15.6 H RBC 3.00 L Hgb 9.2 L Hct 26.8 L MCV MCHC 35 H RDW 15.6 H Plt Count Lymph % (Auto) [place] % (Auto) Lymph # (Auto) [place] # (Auto) Seg Neutrophils % Seg Neuts % (Manual) Lymphocytes % (Manual) Monocytes % (Manual) Seg Neutrophils # Seg Neutrophils # Man Lymphocytes # (Manual) Monocytes # (Manual) PT INR ABG pH POC ABG pCO2 POC ABG pO2 ABG pO2 ABG HCO3 ABG O2 Saturation ABG Base Excess ABG Hemoglobin ABG Oxyhemoglobin ABG Sodium ABG Potassium ABG Chloride ABG Glucose Oxyhemoglobin Sodium Potassium Chloride 96.2 L Carbon Dioxide BUN 117 H Creatinine 10.0 H Glucose 165 H POC Glucose 189 H Lactic Acid Calcium Phosphorus 4.70 H D Magnesium Total Bilirubin AST ALT Alkaline Phosphatase Total Protein Albumin Triglycerides Arterial Blood Glucose Arterial Blood Ionized Calcium Digoxin Crossmatch 01/18/21 01/18/21 01/18/21 11:53 13:44 15:08 WBC RBC Hgb Hct MCV MCHC RDW Plt Count Lymph % (Auto) [place] % (Auto) Lymph # (Auto) [place] # (Auto) Seg Neutrophils % Seg Neuts % (Manual) Lymphocytes % (Manual) Monocytes % (Manual) Seg Neutrophils # Seg Neutrophils # Man Lymphocytes # (Manual) Monocytes # (Manual) PT INR ABG pH POC ABG pCO2 POC ABG pO2 ABG pO2 ABG HCO3 ABG O2 Saturation ABG Base Excess ABG Hemoglobin ABG Oxyhemoglobin ABG Sodium ABG Potassium ABG Chloride ABG Glucose Oxyhemoglobin Sodium Potassium Chloride Carbon Dioxide BUN Creatinine Glucose POC Glucose 69 L 50 L 56 L Lactic Acid Calcium Phosphorus Magnesium Total Bilirubin AST ALT Alkaline Phosphatase Total Protein Albumin Triglycerides Arterial Blood Glucose Arterial Blood Ionized Calcium Digoxin Crossmatch 01/18/21 01/19/21 01/19/21 17:50 04:55 08:56 WBC 12.7 H RBC 2.89 L Hgb 8.7 L Hct 25.6 L MCV MCHC RDW 15.5 H Plt Count Lymph % (Auto) [place] % (Auto) Lymph # (Auto) [place] # (Auto) Seg Neutrophils % Seg Neuts % (Manual) Lymphocytes % (Manual) Monocytes % (Manual) Seg Neutrophils # Seg Neutrophils # Man Lymphocytes # (Manual) Monocytes # (Manual) PT INR ABG pH POC ABG pCO2 POC ABG pO2 ABG pO2 ABG HCO3 ABG O2 Saturation ABG Base Excess ABG Hemoglobin ABG Oxyhemoglobin ABG Sodium ABG Potassium ABG Chloride ABG Glucose Oxyhemoglobin Sodium Potassium Chloride Carbon Dioxide BUN Creatinine Glucose POC Glucose 137 H 120 H Lactic Acid Calcium Phosphorus Magnesium Total Bilirubin AST ALT Alkaline Phosphatase Total Protein Albumin Triglycerides Arterial Blood Glucose Arterial Blood Ionized Calcium Digoxin Crossmatch 01/19/21 01/19/21 01/19/21 08:56 11:33 17:32 WBC RBC Hgb Hct MCV MCHC RDW Plt Count Lymph % (Auto) [place] % (Auto) Lymph # (Auto) [place] # (Auto) Seg Neutrophils % Seg Neuts % (Manual) Lymphocytes % (Manual) Monocytes % (Manual) Seg Neutrophils # Seg Neutrophils # Man Lymphocytes # (Manual) Monocytes # (Manual) PT INR ABG pH POC ABG pCO2 POC ABG pO2 ABG pO2 ABG HCO3 ABG O2 Saturation ABG Base Excess ABG Hemoglobin ABG Oxyhemoglobin ABG Sodium ABG Potassium ABG Chloride ABG Glucose Oxyhemoglobin Sodium Potassium Chloride Carbon Dioxide BUN 66 H Creatinine 7.7 H Glucose 119 H POC Glucose 160 H 125 H Lactic Acid Calcium 8.3 L Phosphorus Magnesium Total Bilirubin AST ALT Alkaline Phosphatase Total Protein Albumin Triglycerides Arterial Blood Glucose Arterial Blood Ionized Calcium Digoxin Crossmatch 01/19/21 01/20/21 01/20/21 23:30 03:35 03:35 WBC 12.0 H RBC 2.62 L Hgb 8.3 L Hct 23.2 L MCV MCHC 36 H RDW Plt Count Lymph % (Auto) [place] % (Auto) Lymph # (Auto) [place] # (Auto) Seg Neutrophils % Seg Neuts % (Manual) Lymphocytes % (Manual) Monocytes % (Manual) Seg Neutrophils # Seg Neutrophils # Man Lymphocytes # (Manual) Monocytes # (Manual) PT INR ABG pH POC ABG pCO2 POC ABG pO2 ABG pO2 ABG HCO3 ABG O2 Saturation ABG Base Excess ABG Hemoglobin ABG Oxyhemoglobin ABG Sodium ABG Potassium ABG Chloride ABG Glucose Oxyhemoglobin Sodium Potassium Chloride Carbon Dioxide BUN 46 H Creatinine 5.9 H Glucose 128 H POC Glucose 127 H Lactic Acid Calcium Phosphorus Magnesium Total Bilirubin AST ALT Alkaline Phosphatase Total Protein Albumin Triglycerides Arterial Blood Glucose Arterial Blood Ionized Calcium Digoxin Crossmatch 01/20/21 01/20/21 01/20/21 06:19 11:55 18:00 WBC RBC Hgb Hct MCV MCHC RDW Plt Count Lymph % (Auto) [place] % (Auto) Lymph # (Auto) [place] # (Auto) Seg Neutrophils % Seg Neuts % (Manual) Lymphocytes % (Manual) Monocytes % (Manual) Seg Neutrophils # Seg Neutrophils # Man Lymphocytes # (Manual) Monocytes # (Manual) PT INR ABG pH POC ABG pCO2 POC ABG pO2 ABG pO2 ABG HCO3 ABG O2 Saturation ABG Base Excess ABG Hemoglobin ABG Oxyhemoglobin ABG Sodium ABG Potassium ABG Chloride ABG Glucose Oxyhemoglobin Sodium Potassium Chloride Carbon Dioxide BUN Creatinine Glucose POC Glucose 119 H 128 H 115 H Lactic Acid Calcium Phosphorus Magnesium Total Bilirubin AST ALT Alkaline Phosphatase Total Protein Albumin Triglycerides Arterial Blood Glucose Arterial Blood Ionized Calcium Digoxin Crossmatch 01/20/21 01/21/21 01/21/21 23:26 04:39 05:27 WBC RBC Hgb Hct MCV MCHC RDW Plt Count Lymph % (Auto) [place] % (Auto) Lymph # (Auto) [place] # (Auto) Seg Neutrophils % Seg Neuts % (Manual) Lymphocytes % (Manual) Monocytes % (Manual) Seg Neutrophils # Seg Neutrophils # Man Lymphocytes # (Manual) Monocytes # (Manual) PT INR ABG pH POC ABG pCO2 POC ABG pO2 ABG pO2 ABG HCO3 ABG O2 Saturation ABG Base Excess ABG Hemoglobin ABG Oxyhemoglobin ABG Sodium ABG Potassium ABG Chloride ABG Glucose Oxyhemoglobin Sodium Potassium Chloride Carbon Dioxide BUN 37 H Creatinine 5.3 H Glucose 109 H POC Glucose 108 H 107 H Lactic Acid Calcium Phosphorus 2.10 L Magnesium 1.50 L Total Bilirubin AST ALT Alkaline Phosphatase 143 H Total Protein 6.1 L Albumin 3.0 L Triglycerides Arterial Blood Glucose Arterial Blood Ionized Calcium Digoxin Crossmatch 01/21/21 01/21/21 01/22/21 11:35 17:53 00:20 WBC RBC Hgb Hct MCV MCHC RDW Plt Count Lymph % (Auto) [place] % (Auto) Lymph # (Auto) [place] # (Auto) Seg Neutrophils % Seg Neuts % (Manual) Lymphocytes % (Manual) Monocytes % (Manual) Seg Neutrophils # Seg Neutrophils # Man Lymphocytes # (Manual) Monocytes # (Manual) PT INR ABG pH POC ABG pCO2 POC ABG pO2 ABG pO2 ABG HCO3 ABG O2 Saturation ABG Base Excess ABG Hemoglobin ABG Oxyhemoglobin ABG Sodium ABG Potassium ABG Chloride ABG Glucose Oxyhemoglobin Sodium Potassium Chloride Carbon Dioxide BUN Creatinine Glucose POC Glucose 133 H 124 H 122 H Lactic Acid Calcium Phosphorus Magnesium Total Bilirubin AST ALT Alkaline Phosphatase Total Protein Albumin Triglycerides Arterial Blood Glucose Arterial Blood Ionized Calcium Digoxin Crossmatch 01/22/21 01/22/21 01/22/21 04:00 06:09 11:36 WBC RBC Hgb Hct MCV MCHC RDW Plt Count Lymph % (Auto) [place] % (Auto) Lymph # (Auto) [place] # (Auto) Seg Neutrophils % Seg Neuts % (Manual) Lymphocytes % (Manual) Monocytes % (Manual) Seg Neutrophils # Seg Neutrophils # Man Lymphocytes # (Manual) Monocytes # (Manual) PT INR ABG pH POC ABG pCO2 POC ABG pO2 ABG pO2 ABG HCO3 ABG O2 Saturation ABG Base Excess ABG Hemoglobin ABG Oxyhemoglobin ABG Sodium ABG Potassium ABG Chloride ABG Glucose Oxyhemoglobin Sodium Potassium Chloride Carbon Dioxide BUN 65 H Creatinine 8.2 H D Glucose 111 H POC Glucose 122 H 132 H Lactic Acid Calcium Phosphorus Magnesium Total Bilirubin AST ALT Alkaline Phosphatase Total Protein Albumin Triglycerides Arterial Blood Glucose Arterial Blood Ionized Calcium Digoxin Crossmatch 01/22/21 01/22/21 01/23/21 17:17 23:18 05:29 WBC RBC Hgb Hct MCV MCHC RDW Plt Count Lymph % (Auto) [place] % (Auto) Lymph # (Auto) [place] # (Auto) Seg Neutrophils % Seg Neuts % (Manual) Lymphocytes % (Manual) Monocytes % (Manual) Seg Neutrophils # Seg Neutrophils # Man Lymphocytes # (Manual) Monocytes # (Manual) PT INR ABG pH POC ABG pCO2 POC ABG pO2 ABG pO2 ABG HCO3 ABG O2 Saturation ABG Base Excess ABG Hemoglobin ABG Oxyhemoglobin ABG Sodium ABG Potassium ABG Chloride ABG Glucose Oxyhemoglobin Sodium Potassium Chloride Carbon Dioxide BUN Creatinine Glucose POC Glucose 135 H 128 H 129 H Lactic Acid Calcium Phosphorus Magnesium Total Bilirubin AST ALT Alkaline Phosphatase Total Protein Albumin Triglycerides Arterial Blood Glucose Arterial Blood Ionized Calcium Digoxin Crossmatch 01/23/21 01/23/21 01/23/21 05:45 11:28 16:39 WBC RBC Hgb Hct MCV MCHC RDW Plt Count Lymph % (Auto) [place] % (Auto) Lymph # (Auto) [place] # (Auto) Seg Neutrophils % Seg Neuts % (Manual) Lymphocytes % (Manual) Monocytes % (Manual) Seg Neutrophils # Seg Neutrophils # Man Lymphocytes # (Manual) Monocytes # (Manual) PT INR ABG pH POC ABG pCO2 POC ABG pO2 ABG pO2 ABG HCO3 ABG O2 Saturation ABG Base Excess ABG Hemoglobin ABG Oxyhemoglobin ABG Sodium ABG Potassium ABG Chloride ABG Glucose Oxyhemoglobin Sodium Potassium Chloride Carbon Dioxide BUN 96 H Creatinine 10.8 H Glucose 124 H POC Glucose 160 H 116 H Lactic Acid Calcium Phosphorus Magnesium 2.50 H Total Bilirubin AST ALT Alkaline Phosphatase Total Protein Albumin Triglycerides Arterial Blood Glucose Arterial Blood Ionized Calcium Digoxin Crossmatch 01/24/21 01/24/21 01/24/21 00:02 04:45 05:01 WBC RBC Hgb Hct MCV MCHC RDW Plt Count Lymph % (Auto) [place] % (Auto) Lymph # (Auto) [place] # (Auto) Seg Neutrophils % Seg Neuts % (Manual) Lymphocytes % (Manual) Monocytes % (Manual) Seg Neutrophils # Seg Neutrophils # Man Lymphocytes # (Manual) Monocytes # (Manual) PT INR ABG pH POC ABG pCO2 POC ABG pO2 ABG pO2 ABG HCO3 ABG O2 Saturation ABG Base Excess ABG Hemoglobin ABG Oxyhemoglobin ABG Sodium ABG Potassium ABG Chloride ABG Glucose Oxyhemoglobin Sodium Potassium 3.5 L Chloride Carbon Dioxide BUN 56 H Creatinine 7.7 H Glucose 102 H POC Glucose 120 H 108 H Lactic Acid Calcium Phosphorus Magnesium Total Bilirubin AST ALT Alkaline Phosphatase Total Protein Albumin Triglycerides Arterial Blood Glucose Arterial Blood Ionized Calcium Digoxin Crossmatch 01/24/21 01/24/21 01/24/21 12:03 17:07 23:55 WBC RBC Hgb Hct MCV MCHC RDW Plt Count Lymph % (Auto) [place] % (Auto) Lymph # (Auto) [place] # (Auto) Seg Neutrophils % Seg Neuts % (Manual) Lymphocytes % (Manual) Monocytes % (Manual) Seg Neutrophils # Seg Neutrophils # Man Lymphocytes # (Manual) Monocytes # (Manual) PT INR ABG pH POC ABG pCO2 POC ABG pO2 ABG pO2 ABG HCO3 ABG O2 Saturation ABG Base Excess ABG Hemoglobin ABG Oxyhemoglobin ABG Sodium ABG Potassium ABG Chloride ABG Glucose Oxyhemoglobin Sodium Potassium Chloride Carbon Dioxide BUN Creatinine Glucose POC Glucose 136 H 122 H 112 H Lactic Acid Calcium Phosphorus Magnesium Total Bilirubin AST ALT Alkaline Phosphatase Total Protein Albumin Triglycerides Arterial Blood Glucose Arterial Blood Ionized Calcium Digoxin Crossmatch 01/25/21 01/25/21 01/25/21 05:15 06:00 07:47 WBC RBC Hgb Hct MCV MCHC RDW Plt Count Lymph % (Auto) [place] % (Auto) Lymph # (Auto) [place] # (Auto) Seg Neutrophils % Seg Neuts % (Manual) Lymphocytes % (Manual) Monocytes % (Manual) Seg Neutrophils # Seg Neutrophils # Man Lymphocytes # (Manual) Monocytes # (Manual) PT INR ABG pH POC ABG pCO2 POC ABG pO2 ABG pO2 ABG HCO3 ABG O2 Saturation ABG Base Excess ABG Hemoglobin ABG Oxyhemoglobin ABG Sodium ABG Potassium ABG Chloride ABG Glucose Oxyhemoglobin Sodium 116 L* D Potassium Chloride 79.1 L Carbon Dioxide 17 L D BUN 72 H Creatinine 7.4 H Glucose 2242 H* POC Glucose 117 H 138 H Lactic Acid Calcium 6.7 L D Phosphorus Magnesium Total Bilirubin AST ALT Alkaline Phosphatase Total Protein Albumin Triglycerides Arterial Blood Glucose Arterial Blood Ionized Calcium Digoxin Crossmatch 01/25/21 01/25/21 01/25/21 08:35 11:49 18:42 WBC RBC Hgb Hct MCV MCHC RDW Plt Count Lymph % (Auto) [place] % (Auto) Lymph # (Auto) [place] # (Auto) Seg Neutrophils % Seg Neuts % (Manual) Lymphocytes % (Manual) Monocytes % (Manual) Seg Neutrophils # Seg Neutrophils # Man Lymphocytes # (Manual) Monocytes # (Manual) PT INR ABG pH POC ABG pCO2 POC ABG pO2 ABG pO2 ABG HCO3 ABG O2 Saturation ABG Base Excess ABG Hemoglobin ABG Oxyhemoglobin ABG Sodium ABG Potassium ABG Chloride ABG Glucose Oxyhemoglobin Sodium Potassium Chloride 97.0 L Carbon Dioxide BUN 92 H Creatinine 11.0 H Glucose 125 H POC Glucose 130 H 122 H Lactic Acid Calcium Phosphorus Magnesium Total Bilirubin AST ALT Alkaline Phosphatase Total Protein Albumin Triglycerides Arterial Blood Glucose Arterial Blood Ionized Calcium Digoxin Crossmatch 01/25/21 01/26/21 01/26/21 23:37 04:19 05:48 WBC RBC Hgb Hct MCV MCHC RDW Plt Count Lymph % (Auto) [place] % (Auto) Lymph # (Auto) [place] # (Auto) Seg Neutrophils % Seg Neuts % (Manual) Lymphocytes % (Manual) Monocytes % (Manual) Seg Neutrophils # Seg Neutrophils # Man Lymphocytes # (Manual) Monocytes # (Manual) PT INR ABG pH POC ABG pCO2 POC ABG pO2 ABG pO2 ABG HCO3 ABG O2 Saturation ABG Base Excess ABG Hemoglobin ABG Oxyhemoglobin ABG Sodium ABG Potassium ABG Chloride ABG Glucose Oxyhemoglobin Sodium Potassium Chloride Carbon Dioxide BUN 49 H Creatinine 7.1 H Glucose POC Glucose 144 H 125 H Lactic Acid Calcium Phosphorus Magnesium 1.50 L Total Bilirubin AST ALT Alkaline Phosphatase Total Protein Albumin Triglycerides Arterial Blood Glucose Arterial Blood Ionized Calcium Digoxin Crossmatch 01/26/21 11:16 WBC RBC Hgb Hct MCV MCHC RDW Plt Count Lymph % (Auto) [place] % (Auto) Lymph # (Auto) [place] # (Auto) Seg Neutrophils % Seg Neuts % (Manual) Lymphocytes % (Manual) Monocytes % (Manual) Seg Neutrophils # Seg Neutrophils # Man Lymphocytes # (Manual) Monocytes # (Manual) PT INR ABG pH POC ABG pCO2 POC ABG pO2 ABG pO2 ABG HCO3 ABG O2 Saturation ABG Base Excess ABG Hemoglobin ABG Oxyhemoglobin ABG Sodium ABG Potassium ABG Chloride ABG Glucose Oxyhemoglobin Sodium Potassium Chloride Carbon Dioxide BUN Creatinine Glucose POC Glucose 122 H Lactic Acid Calcium Phosphorus Magnesium Total Bilirubin AST ALT Alkaline Phosphatase Total Protein Albumin Triglycerides Arterial Blood Glucose Arterial Blood Ionized Calcium Digoxin Crossmatch Allied health notes reviewed: nursing
--- NOTE | 2021-01-26 15:30 | Progress Note ---
Assessment and Plan Assessment: * ESRD previously on peritoneal dialysis; now on back up HD (on peritoneal dialysis for 2 years) * Small bowel obstruction --s/p ex-lap with jejuno-ileal anastamosis --s/p ex lap with extensive lysis of adhesions and two small bowel resections with primary anastamosis for SBO with necrotic segment small bowel. --s/p ex lap, resection of perforated anastamosis, washout and abthera wound vac placement. --s/p ex lap with right hemicolectomy. * Acute respiratory failure, s/p extubation * Septic shock - resolved * Bacteremia - resolved * Anemia of ESRD * Atrial fibrilation, new onset * Post op ileus Plan: * Continue HD MWF via left IJ permcath (12/27) * 3K bath with dialysis * UF as tolerated * Epogen 10k units w/ dialysis * Rate control per cardiology * Nutrition per primary team * Maintatin MAP >65 * Surgery notes reviewed * He will also require outpatient hemodialysis chair prior to discharge * Elevated BUN likely secondary to catabolic state. Dialysis time was increased to 4 hours. Subjective Date of service: 01/26/21 Principal diagnosis: Ac hypoxemic resp failure; Severe Sepsis; Peritonitis; Acute SBO; ESRD; CHF Interval history: In the ICU. Somnolent but easily awakened. HARIS drain in place. Objective - Exam Narrative Exam: General appearance: NAD Eyes: anicteric sclerae HENT: Normocephalic, Atraumatic Neck: supple, tracheal midline, no JVD Lungs: CTAB CV: RRR Abdomen: Soft, distended, periumbilical tenderness Extremities: no edema, no cyanosis Skin: No rash. Psych: Calm Neuro: Following commands - Vital Signs Vital signs: Vital Signs - 12hr 01/26/21 01/26/21 01/26/21 04:00 05:40 06:00 Temperature 98.7 F Pulse Rate 81 81 83 Pulse Rate [ 79 From Monitor] Respiratory 17 19 Rate Respiratory Rate [Anterior Abdomen] Blood Pressure 159/89 152/75 O2 Sat by Pulse 96 93 Oximetry 01/26/21 01/26/21 01/26/21 08:00 10:00 11:00 Temperature 99.2 F 98.4 F Pulse Rate 83 84 Pulse Rate [ 79 From Monitor] Respiratory 16 19 Rate Respiratory 18 Rate [Anterior Abdomen] Blood Pressure 145/75 131/74 O2 Sat by Pulse 96 97 Oximetry 01/26/21 01/26/21 12:00 12:01 Temperature Pulse Rate 86 82 Pulse Rate [ 79 From Monitor] Respiratory 16 21 Rate Respiratory Rate [Anterior Abdomen] Blood Pressure 149/77 O2 Sat by Pulse 96 95 Oximetry - Lab 01/20/21 03:35 01/26/21 04:19 Most recent lab results ABG pH 7.345 pH Units (7.350-7.450) L 01/07/21 17:14 ABG pCO2 40.3 mm Hg 01/07/21 17:14 ABG pO2 67.4 mm Hg (80.0-90.0) L 01/07/21 17:14 ABG HCO3 21.5 mmol/L (20.0-26.0) 01/07/21 17:14 ABG O2 Saturation 94.3 % (95.0-99.0) L 01/07/21 17:14 Calcium 9.0 mg/dL (8.4-10.2) 01/26/21 04:19 Phosphorus 2.60 mg/dL (2.5-4.5) 01/23/21 05:45 Magnesium 1.50 mg/dL (1.7-2.3) L 01/26/21 04:19 Medications & Allergies - Medications Allergies/Adverse Reactions: Allergies No Known Allergies Allergy (Verified 06/09/20 15:27) Home Medications: Home Medications Medication Instructions Recorded Confirmed Last Taken Type Albuterol Mdi (or & Nicu Only) 2 puff IH QID PRN #1 inhalation 04/01/17 11/01/20 10/31/20 09:00 Rx [ProAir HFA Inhaler] Calcium Acetate 667 mg PO DAILY 04/20/20 11/01/20 10/31/20 09:00 History Centrum Men's Tablet 1 tab PO DAILY 04/20/20 11/01/20 10/31/20 09:00 History Cinacalcet 30 mg PO DAILY 04/20/20 11/01/20 10/31/20 09:00 History Dialyvite with Zinc Tablet 1 tab PO DAILY 04/20/20 11/01/20 10/31/20 09:00 History Magnesium 250 mg PO BID 04/20/20 11/01/20 10/31/20 17:00 History Triamcinolone 0.1% 1 1000units TRANSDERMA DAILY 04/20/20 11/01/20 10/31/20 09:00 History Vit B12/Folic Acid/B6/Aa No.15 1,000 mg PO DAILY 04/20/20 11/01/20 10/31/20 09:00 History amLODIPine 10 mg PO DAILY 06/09/20 11/01/20 10/31/20 09:00 History AtorvaSTATin 40 mg PO HS 11/01/20 11/01/20 10/31/20 21:00 History Benadryl 25 mg PO HS 11/01/20 11/01/20 10/31/20 21:00 History Diclofenac 1 TRANSDERMA QID 11/01/20 10/31/20 19:00 History Fluticasone Propionate 1 spray INTRANASAL DAILY 11/01/20 11/01/20 10/31/20 09:00 History Vitamin D3 2,000 units 11/01/20 10/31/20 09:00 History carvediloL 12.5 mg PO DAILY 11/01/20 11/01/20 10/31/20 09:00 History hydrALAZINE 100 mg PO TID 11/01/20 11/01/20 10/31/20 19:00 History Active Medications: Generic Name Dose Route Start Last Admin Trade Name Freq PRN Reason Stop Dose Admin Acetaminophen 650 mg 12/31/20 15:30 01/21/21 05:28 Acetaminophen 650 Mg Rect Supp HI 650 mg Q6H PRN Administration Non Cardiac Pain or Temp>100.5 Clonidine HCl 0.2 mg 01/11/21 10:00 01/25/21 09:42 Clonidine Tts 0.2 Mg/24 Hr Patch TD 0.2 mg We THOMAS Administration Dextrose 50 ml 01/14/21 17:59 01/18/21 15:10 Dextrose 50% In Water (25gm) 50 Ml Syringe IV 20 ml Q30MIN PRN Administration Hypoglycemia Protocol Digoxin 0.125 mg 01/09/21 12:00 01/25/21 11:35 Digoxin 0.5 Mg/2 Ml Inj IV 0.125 mg Q48H THOMAS Administration Diphenhydramine HCl 50 mg 01/20/21 10:10 01/24/21 02:21 Diphenhydramine 50 Mg/Ml Vial IV 50 mg Q6H PRN Administration Itching Famotidine 10 mg 12/24/20 13:00 01/26/21 10:04 Famotidine 20 Mg/2 Ml Inj IV 10 mg BID THOMAS Administration Haloperidol Lactate 5 mg 12/29/20 14:16 01/22/21 23:56 Haloperidol Lactate 5 Mg/1 Ml Inj IV 5 mg Q12H PRN Administration Agitation Heparin Sodium (Porcine) 5,000 unit 12/24/20 10:00 01/26/21 10:04 Heparin 5,000 Unit/1 Ml Vial SUB-Q 5,000 unit Q12HR THOMAS Administration Hydralazine HCl 10 mg 01/10/21 14:00 01/26/21 10:05 Hydralazine 20 Mg/1 Ml Inj IV 10 mg Q4HR THOMAS Administration Hydromorphone HCl 0.25 mg 01/09/21 10:53 01/25/21 19:52 Hydromorphone 1 Mg/1 Ml Inj IV 0.25 mg Q6H PRN Administration Pain , Severe (7-10) Hydrophilic Ointment 1 applic 12/31/20 06:39 01/11/21 21:28 Lip Therapy Vaseline TP 1 applic Q2HR PRN Administration Dry Lips Sodium Chloride 100 mls @ 999 mls/hr 01/19/21 09:30 Nacl 0.9% IV [place] PRN Hypotension Octreotide Acetate 100 mcg/ 101 mls @ 200 mls/hr 01/21/21 15:00 01/26/21 10:05 Sodium Chloride IV 200 mls/hr Q8H THOMAS Administration Amino Acids/Electrolytes/Dextrose 2,016 mls @ 84 mls/hr 01/25/21 20:00 01/25/21 21:36 Tpn Adult IV 01/26/21 19:59 84 mls/hr DAILY@1999 [facility] Administration Protocol Amino Acids/Electrolytes/Dextrose 2,016 mls @ 84 mls/hr 01/26/21 20:00 Tpn Adult IV 01/27/21 19:59 DAILY@1999 [facility] Protocol Insulin Glargine 5 units 01/18/21 22:00 01/25/21 21:35 Insulin Glargine 100 Units/Ml SUB-Q 5 units QHS THOMAS Administration Insulin Human Lispro 0 unit 01/03/21 12:00 01/26/21 13:41 Insulin Lispro 100 Unit/Ml SUB-Q Not Given Q6HR [facility] Protocol Metoprolol Tartrate 5 mg 12/30/20 12:00 01/26/21 10:04 Metoprolol Tartrate 5 Mg/5 Ml Inj IV 5 mg Q4HR THOMAS Administration Multi-Ingred Cream/Lotion/Oil/Oint 1 applic 12/31/20 06:39 Mineral Oil/Petrolatum, White Ophth Oint 3.5 Gm OU Q4HR PRN Dry Eye(s) Ondansetron HCl 4 mg 01/25/21 11:56 01/25/21 12:55 Ondansetron 4 Mg/2 Ml Inj IV 4 mg Q4H PRN Administration Nausea And Vomiting Scopolamine 1 each 01/15/21 11:00 01/24/21 10:01 Scopolamine Transdermal Patch 72 Hr TD 1 each Q3D THOMAS Administration Sodium Chloride 10 ml 12/22/20 22:00 01/26/21 10:06 Sodium Chloride 0.9% 10 Ml Flush Syringe IV 10 ml BID THOMAS Administration Sodium Chloride 10 ml 12/22/20 19:42 01/09/21 17:27 Sodium Chloride 0.9% 10 Ml Flush Syringe IV 10 ml PRN PRN Administration LINE FLUSH
--- NOTE | 2021-01-26 15:31 | Progress Note ---
Assessment and Plan POD#33 s/p ex lap with extensive lysis of adhesions and two small bowel resections with primary anastamosis for SBO with necrotic segment small bowel. POD#24 s/p ex lap, resection of perforated anastamosis, washout and abthera wound vac placement. POD#22 s/p ex lap with right hemicolectomy. POD#20 s/p ex lap, with jejunal-colonic anastamosis and closure of abdomen. Afebrile and stable. - concerned about a leak at his anastamosis. Clinically improved with decreased output that is becoming more serous. Blood supply was evaluated at time of last surgery with ICG and found to be adequate. Pt was on several days of steroids for tongue swelling which may have contributed to leak. Currently since he is stable and afebrile will treat like controlled fistua. He is extremely high risk for additional surgery with tissues that are extremely friable and previous scar tissue that makes his anatomy very difficult to manipulate. If he requires operative intervention will likely need to be left in discontinuity and eventual ileostomy as he has already failed two anastamoses. Continue HARIS drain suction. Will maintain LIWS to NGT and monitor output. HARIS drain must be secured and kept in place. Since HARIS drain has continued to decrease over the last several days, will continue q 8h ocreotide. No additional changes in management at time. Need to ensure drain is protected during movements. Prognosis is gaurded. Subjective Date of service: 01/26/21 Patient Reports: Positive: no new complaints Narrative: no acute events overnight Objective Vital Signs - 12hr 01/26/21 01/26/21 01/26/21 04:00 05:40 06:00 Temperature 98.7 F Pulse Rate 81 81 83 Pulse Rate [ 79 From Monitor] Respiratory 17 19 Rate Respiratory Rate [Anterior Abdomen] Blood Pressure 159/89 152/75 O2 Sat by Pulse 96 93 Oximetry 01/26/21 01/26/21 01/26/21 08:00 10:00 11:00 Temperature 99.2 F 98.4 F Pulse Rate 83 84 Pulse Rate [ 79 From Monitor] Respiratory 16 19 Rate Respiratory 18 Rate [Anterior Abdomen] Blood Pressure 145/75 131/74 O2 Sat by Pulse 96 97 Oximetry 01/26/21 01/26/21 12:00 12:01 Temperature Pulse Rate 86 82 Pulse Rate [ 79 From Monitor] Respiratory 16 21 Rate Respiratory Rate [Anterior Abdomen] Blood Pressure 149/77 O2 Sat by Pulse 96 95 Oximetry - General physical appearance well developed, no distress, no pain, chronically ill - Respiratory normal expansion, normal respiratory effort - Abdomen soft, not tender, other (HARIS drain with bilious drainage, 60ml recorded last 24 h ours. liquid stool in stool management system) - Neurologic normal coordination, normal sensation - Psychiatric oriented to time, oriented to person - Labs 01/20/21 03:35 01/26/21 04:19 Diabetes panel 01/26/21 Range/Units 04:19 Sodium 141 (137-145) mmol/L Potassium 3.7 (3.6-5.0) mmol/L Chloride 100.6 (98-107) mmol/L Carbon Dioxide 26 (22-30) mmol/L BUN 49 H (9-20) mg/dL Creatinine 7.1 H (0.8-1.3) mg/dL Glucose 98 (75-100) mg/dL Calcium 9.0 (8.4-10.2) mg/dL Calcium panel 01/26/21 Range/Units 04:19 Calcium 9.0 (8.4-10.2) mg/dL Pituitary panel 01/26/21 Range/Units 04:19 Sodium 141 (137-145) mmol/L Potassium 3.7 (3.6-5.0) mmol/L Chloride 100.6 (98-107) mmol/L Carbon Dioxide 26 (22-30) mmol/L BUN 49 H (9-20) mg/dL Creatinine 7.1 H (0.8-1.3) mg/dL Glucose 98 (75-100) mg/dL Calcium 9.0 (8.4-10.2) mg/dL Adrenal panel 01/26/21 Range/Units 04:19 Sodium 141 (137-145) mmol/L Potassium 3.7 (3.6-5.0) mmol/L Chloride 100.6 (98-107) mmol/L Carbon Dioxide 26 (22-30) mmol/L BUN 49 H (9-20) mg/dL Creatinine 7.1 H (0.8-1.3) mg/dL Glucose 98 (75-100) mg/dL Calcium 9.0 (8.4-10.2) mg/dL
--- NOTE | 2021-01-26 15:55 | Progress Note ---
Assessment and Plan Assessment and plan: This is a 60 YO Male with ESRD on PD, GERD, Crohn's Disease, Nicotine Dependence, HTN, Systolic CHF(EF 35%) who presented to the emergency department on 12/22 with complaints of abdominal pain which began shortly after eating fast food rated 10/10 which is periumbilical, constant, associated with fever, nausea and multiple sites of vomiting and self-reported inability to undergo PD. In the emergency room patient underwent a CT scan of the abdomen/pelvis which revealed evidence of partial small bowel obstruction, symptoms were consistent with bacterial peritonitis. Patient was admitted to the hospital service with sepsis, peritonitis, and small bowel obstruction with consults to general surgery, nephrology, infectious disease and [facility]. 12/23. Patient had temperature 101.2 F, tachycardia and elevated lactic acid on admission. Meet sepsis criteria. Started on IV antibiotics. ID has been c onsulted. Surgery consulted this a.m.-advised laparoscopy. He remains on NG tube connected to suction. 12/24. Patient was noted to have peritonitis yesterday and patient undergoing exploratory laparotomy. Patient remained intubated after procedure and is in ICU. Now on broad-spectrum antibiotics. ID on board. 12/25. Remains mechanically ventilated and sedated. Temp 103 Fahrenheit. Antibiotics broadened-ID added fluconazole and Flagyl. Blood cultures ordered. Plan to repeat CT abdomen tomorrow if not better. Surgery following. 12/26: Patient remains on mechanical ventilation on CMV tidal line 550, rate of 14, PEEP of 8 and 30% FiO2 and sedated on fentanyl 4 micrograms. Today we will remove his Jeffery and CCM dropped his rate controlled him on CPAP. We will trend CBC given recent drop in H/H. 12/27: Patient remains intubated on CMV tidal volume 550, rate 12, PEEP 8 on 30% FiO2 at the time my examination. Patient's TPN will be changed to PPN. Patient's fentanyl drip will be changed to IV push fentanyl and have a permacath placed today and midline. Patient was placed on a spontaneous breathing trial was switched back to CMV prior to procedure. 12/28: Patient on fentanyl but awake and follows commands. At the time of my examination he was on a CPAP trial and is scheduled to receive HD today. s/o permacath and PICC placement with vascular yesterday. His blood culture grew Prevotella and addition to Streptococcus bovis. This evening Dr. Spicer attempted to extubate the patient and his heart rate went to the 180s. Stat EKG obtained and cardiology consulted. 12/29: Patient was started on amiodarone IV for A. fib RVR yesterday and today he is more rate controlled into the 70s and 80s. Patient was extubated yesterday and is currently on Ventimask. Patient will be transferred to [facility]. Patient continues to be n.p.o. with TPN and NG tube to LIS. He is hypokalemic today which was repleted. 12/30; patient was on IV amiodarone for treatment with RVR, rate is controlled. Patient was off oxygen. patient is n.p.o. and on TPN. Surgery is following the patient. 12/31: Patient was intubated overnight for respiratory distress and this morning on examination he was on assist control tidal volume 450, rate 20, PEEP 6, 100% FiO2 and RT was getting a ABG to adjust vent settings. Patient had a acute bump in WBC and per ID recommendations we will obtain a CT abdomen/pelvis if leukocytosis persist. Patient is on TPN and sedated with Levophed. Patient is also on vasopressor support with Levophed. Per surgery his ileus is resolving however will maintain OGT to LIWS. 01/01: Patient was started on a vasopressin yesterday late evening. This morning patient is on 20 mcg of Levophed and 0.03 vasopressin and sedated on 20 mcg of propofol. Patient WBC increased today and he is hypokalemic. We will treat hyperkalemia. Patient had a CT chest and abdomen/pelvis pending. The time examination total of 450, rate 20, PEEP of 6 and 35 percent FiO2. Per RN, Dr Pollock has stated that the patient will be returning to the OR today for likely anastomosis seen on CT abdomen/pelvis. 01/02: Patient noted, WBC improving, but noted to have anemia, will transfuse additional unit of Blood and repeat H/H. continue supportive care. 01/03: Continue to wean pressors, ABX PER ID, patient to return to OR today for washout and possible closure, CONTINUE TPN 01/04: Continues to show some improvement. Today is POD#12 s/p ex lap with extensive lysis of adhesions and two small bowel resections with primary anastamosis for SBO with necrotic segment small bowel. POD#3 s/p ex lap, resection of perforated anastamosis, washout and abthera wound vac placement. POD#1 s/p ex lap with right hemicolectomy. Surgery planning to take back to the OR on Saturday with the hope to anastamos ileum to transverse colon and close abdomen. keep NGT to suction. Pt in deep sedation due to open abdomen. Per ID - Continue IV Zosyn, renally dosed for Strep bacteremia treatment till 01/06/2021 -On TPN 01/05: Patient continues on HD, anticipate return to OR tomorrow for closure and anastemosis. Continues with deep sedation due to open abdomen 01/06: Continue supportive care, monitor pressures and electrolytes. He is post op Exploratory laparotomy, 2. Jejunal colonic anastomosis,3. Segmental small bowel resection and anastemosis closure today. Continue wound vac 01/07: Continue supportive care, Today is POD#15 s/p ex lap with extensive lysis of adhesions and two small bowel resections with primary anastamosis for SBO with necrotic segment small bowel. POD#6 s/p ex lap, resection of perforated anastamosis, washout and abthera wound vac placement. POD#4 s/p ex lap with right hemicolectomy. POD #1 exploratory laparotomy, 2. Jejunal colonic anastomosis,3. Segmental small bowel resection. Continue to monitor and correct electrolytes. Patient remains on fentanyl and TPN with lipids. Still hypoactive bowel sounds. 16: Patient now extubated, asked when he can go home, Still lethargic. Continue wound management, wound vac, Will need Rehab eval prior to discharge. 01/09: Patient remains on TPN, was started on labetalol drip per cardiology, africa dueñas had uncontrolled hypertension today however he cannot be given p.o. medications ileus resolves per surgery. Patient received hemodialysis today. NG tube remains to low intermittent suction. 01/10: Patient has some leukocytosis, slight hypokalemia and hyponatremia, metabolic acidosis. NG tube to LIWS, continue TPN. Patient will be downgraded to IMCU today. [facility] is working on placement. Will change frequency of hydralazine and discontinue labetalol drip. We will obtain a.m. BMP/mag/Phos and CBC. Infectious disease will like to start Zosyn if leukocytosis continues to worsen. 01/11: Patient leukocytosis has slightly improved potassium with in normal limits and other electrolytes are elevated but patient is scheduled for HD today. Remains on RA and A,A,Ox4. BP better controlled but remains elevated and we will increase clonidine dose. 01/12/2021; patient's blood pressure is better after dialysis and as needed IV medications and clonidine patch. Patient is followed by general surgery. Patient was alert and oriented and asked when he is going home. 01/13: Surgery is concerned about a leak at his anastamosis given increased output and will treat as controlled fistula and start an octreotide drip. And per surgery if he requires operative intervention will likely need to be left in discontinuity and eventual ileostomy as he has already failed two anastamoses. Patient still has tongue swelling and slurred speech. He is on Benadryl. 01/14: Patient's tongue swelling is improved, patient is alert and oriented, CAM ICU negative. Continue NG tube to low wall intermittent suction. Leukocytosis is improving. Hypomagnesemia resolved. Epogen with HD 01/15: Patient tongue swelling is much improved, bladder scan completed by bedside RN and he needed to be straight cathed. NGT output decreased. Leukocytosis improving. Patient has been having episodes of hypoglycemia during the day and he is on cyclic TPN, Lantus rescheduled to nightly and dosage decreased. 01/16: Continue management per ID and surgery. Will defer repeat CT of the abdomen to the team surgery has been approved by nephrology. Continue current diet and advance all to ice if okay with surgery discussed with nursing staff. 01/17: Discussed surgical recommendation of strict n.p.o. except for small amount of ice as patient has already failed to anastomosis. And risk for additional surgery with tissues were extremely friable from previous scar. He continues on octreotide drip to slow down GI output HARIS drain remains in place with NG suction for decompression. Patient verbalized understanding although stressed about being discharged. We will continue IMCU care unless otherwise advised by david andersen. Prognosis remains guarded continue to monitor electrolytes considering GI output. 01/18: Continue supportive care, BP mildly elevated, continue to monitor, continue current therapy, if no return to PO soon may consider Increasing clonidine to 0.3, PO when ok with surgery. 01/19:Continue supportive care, Per ID continue IV Zosyn, plan to stop at 3 weeks from last surgery end date: 01/24/2021. Other management per surgery. Continue TPN. 01/20: Discussed with Surgery, will continue current management. Advised patient of the findings and plan. 01/21: Continue supportive care. Continue management per surgery advance diet when okay with surgery. Plan of care discussed with the patient in detail. 01/22: NG tube to be replaced explained to the patient why this is important. I agree with PT OT discussed with nursing staff very important to let the PT team know that they should manage HARIS drain while patient is ambulating so that he does not come out. Continue current management. Change in ocreotide to q8h and d/c drip NOTED 01/23: Continue supportive care, HD today, counselling provided to the patient on compliance with medical management 01/24: Replace NGT, Continue management per Surgery. POD 32. Mild hypokalemia noted, will replace. 01/25: Brief summary patient is a 60-year-old male admitted with abdominal pain and noted to have necrotic bowel concerning for PD associated peritonitis. Catheter was placed to convert to HD. Patient also underwent multiple surgical interventions. Initial cultures showed Streptococcus bovis bacteremia and Prevotella bacteremia a COLIN was without vegetations repeat blood cultures have been negative. Part of the surgery is included ex lap, resection of perforated anastomosis, washout and a better wound VAC placement on 01/01. While progress has remained slow if has indeed shown some improvement. Patient is agitated about being in the hospital but understands the care management been provided his vital to his health and to prevent further surgeries. The NG tube has been pulled out 2 days ago he vehemently refused the tube being placed back but after a day of nausea with associated vomiting he was accepting of the chest tube to put back. He continues on TPN. We will continue to monitor electrolytes and correct as needed. This a.m. and erroneous blood was obtained likely from the same line as TPN repeat was done which showed normalizing factors. Patient completed antibiotics on 01/25/2020 . 01/26 Patient with severe sepsis with septic shock, small bowel obstruction, necrotic bowel s/p multiple surgeries. He complains of abdominal pain. No fever currently. He asked me when is he going home and i explained that he is not yet stable for discharge Severe Sepsis with shock Streptococcus bovis bacteremia/Prevotella bacteremia Gwendolyn albicans tracheal aspirate Small bowel obstruction/necrotic bowel s/p ex lap with extensive lysis of adhesions, 2 small bowel resections with primary anastomosis, right hemicolectomy, jejunal colonic anastomosis, segmental small bowel resection Postoperative ileus Atrial fibrillation with RVR Leukocytosis Hypochloremia Gwendolyn albicans in tracheal aspirate from 12/24 ESRD on PD, PermCath to be placed Transaminitis Systolic CHF(EF 35%) Crohn's disease Hypertension -[facility], surgery, infectious disease, nephrology, vascular surgery, cardiology consulted, appreciate recommendations -12/24 S/p ex lap with extensive expectations, 2 small bowel resections with primary anastomosis with surgery on 12/23 -s/p PICC and Permacath placement with vascular surgery on 12/27 -Extubated on 12/28, reintubated 12/31 for respiratory distress and extubated 01/08 -12/29 echocardiogram shows moderate concentric LVH, small pericardial effusion, transmitral Doppler flow pattern is grade 1 abnormal relaxation pattern, left- ventricular systolic function normal, LVEF 50 to 55%, no wall motion abnormalities. -01/01 CT abdomen/pelvis shows small pericardial effusion, mild coronary artery atherosclerotic calcification, small bilateral pleural effusions with associated volume loss, no convincing evidence of bowel obstruction or inflammation, postoperative changes from interval/recent midline laparotomy with a moderate amount of free fluid throughout the abdomen, small amount of dependent free air presumably postoperative -01/02 s/p ex lap, resection of perforated anastamosis, washout and abthera wound vac placement. -01/04 s/p ex lap with right hemicolectomy. -01/06 s/p exploratory laparotomy, Jejunal colonic anastomosis, Segmental small bowel resection. -s/p Vasopressor support with Levophed and vasopressin -Transitioned to HD from PD -HD per nephro, Epogen with HD -Strict NPO -TPN -Octreotide drip -NGT to LIWS -s/p IV antibiotics -Tobacco abuse cessation counseling -Trend CBC, BMP DVT/GI prophylaxis: PPI, heparin subcu, SCDs to bilateral lower extremities while in bed Disposition: IMCU History Interval history: Patient asking when his NG tube will come out and when he is going home Patient has had multiple surgeries Mild abdominal pain No fever currently Hospitalist Physical - Physical exam Narrative exam: Gen:Not in acute distress, lying in bed Neck:supple, no JVD Lungs:Clear to auscultation bilat, no crackles Heart:S1 and S2 reg, no murmurs, no rubs or gallop Abd: covered with dressing, HARIS drain, decreased bowel sounds Ext: No edema, no clubbing, no cyanosis Neuro:Awake,alert,oriented X3, moves all extremities psych: Calm, co-operative - Constitutional Vitals: Temp Pulse Resp BP Pulse Ox 98.4 F 82 21 149/77 95 01/26/21 11:00 01/26/21 12:01 01/26/21 12:01 01/26/21 12:01 01/26/21 12:01 HEART Score - HEART Score Troponin: Troponin T 0.021 ng/mL (0.00-0.029) 12/22/20 14:38 Results - Labs CBC & Chem 7: 01/20/21 03:35 01/26/21 04:19 Labs: Laboratory Last Values WBC 12.0 K/mm3 (4.5-11.0) H 01/20/21 03:35 RBC 2.62 M/mm3 (3.65-5.03) L 01/20/21 03:35 Hgb 8.3 gm/dl (11.8-15.2) L 01/20/21 03:35 Hct 23.2 % (35.5-45.6) L 01/20/21 03:35 MCV 89 fl (84-94) 01/20/21 03:35 MCH 32 pg (28-32) 01/20/21 03:35 MCHC 36 % (32-34) H 01/20/21 03:35 RDW 15.2 % (13.2-15.2) 01/20/21 03:35 Plt Count 230 K/mm3 (140-440) 01/20/21 03:35 Lymph % (Auto) 4.4 % (13.4-35.0) L 01/13/21 03:45 [place] % (Auto) 10.3 % (0.0-7.3) H 01/13/21 03:45 Eos % (Auto) 0.9 % (0.0-4.3) 01/13/21 03:45 Baso % (Auto) 0.2 % (0.0-1.8) 01/13/21 03:45 Lymph # (Auto) 0.8 K/mm3 (1.2-5.4) L 01/13/21 03:45 [place] # (Auto) 1.8 K/mm3 (0.0-0.8) H 01/13/21 03:45 Eos # (Auto) 0.2 K/mm3 (0.0-0.4) 01/13/21 03:45 Baso # (Auto) 0.0 K/mm3 (0.0-0.1) 01/13/21 03:45 Add Manual Diff Complete 01/10/21 09:26 Total Counted 100 01/10/21 09:26 Seg Neutrophils % 84.2 % (40.0-70.0) H 01/13/21 03:45 Seg Neuts % (Manual) 95.0 % (40.0-70.0) H 01/10/21 09:26 Band Neutrophils % 1.0 % 01/10/21 09:26 Lymphocytes % (Manual) 3.0 % (13.4-35.0) L 01/10/21 09:26 Reactive Lymphs % (Man) 1.0 % 12/29/20 05:16 Monocytes % (Manual) 1.0 % (0.0-7.3) 01/10/21 09:26 Eosinophils % (Manual) 2.0 % (0.0-4.3) 12/29/20 05:16 Metamyelocytes % 2.0 % 12/29/20 05:16 Nucleated RBC % Not Reportable 01/10/21 09:26 Seg Neutrophils # 14.8 K/mm3 (1.8-7.7) H 01/13/21 03:45 Seg Neutrophils # Man 17.3 K/mm3 (1.8-7.7) H 01/10/21 09:26 Band Neutrophils # 0.2 K/mm3 01/10/21 09:26 Lymphocytes # (Manual) 0.5 K/mm3 (1.2-5.4) L 01/10/21 09:26 Abs React Lymphs (Man) 0.0 K/mm3 01/10/21 09:26 Monocytes # (Manual) 0.2 K/mm3 (0.0-0.8) 01/10/21 09:26 Eosinophils # (Manual) 0.0 K/mm3 (0.0-0.4) 01/10/21 09:26 Basophils # (Manual) 0.0 K/mm3 (0.0-0.1) 01/10/21 09:26 Metamyelocytes # 0.0 K/mm3 01/10/21 09:26 Myelocytes # 0.0 K/mm3 01/10/21 09:26 Promyelocytes # 0.0 K/mm3 01/10/21 09:26 Blast Cells # 0.0 K/mm3 01/10/21 09:26 WBC Morphology Not Reportable 01/10/21 09:26 Hypersegmented Neuts Not Reportable 01/10/21 09:26 Hyposegmented Neuts Not Reportable 01/10/21 09:26 Hypogranular Neuts Not Reportable 01/10/21 09:26 Smudge Cells Not Reportable 01/10/21 09:26 Toxic Granulation 1+ 01/10/21 09:26 Toxic Vacuolation Not Reportable 01/10/21 09:26 Dohle Bodies Not Reportable 01/10/21 09:26 Pelger-Huet Anomaly Not Reportable 01/10/21 09:26 Lamar Rods Not Reportable 01/10/21 09:26 Platelet Estimate Consistent w auto 01/10/21 09:26 Clumped Platelets Not Reportable 01/10/21 09:26 Plt Clumps, EDTA Not Reportable 01/10/21 09:26 Large Platelets Not Reportable 01/10/21 09:26 Giant Platelets Not Reportable 01/10/21 09:26 Platelet Satelliting Not Reportable 01/10/21 09:26 Plt Morphology Comment Not Reportable 01/10/21 09:26 RBC Morphology Not Reportable 01/10/21 09:26 Dimorphic RBCs Not Reportable 01/10/21 09:26 Polychromasia Not Reportable 01/10/21 09:26 Hypochromasia Not Reportable 01/10/21 09:26 Poikilocytosis Not Reportable 01/10/21 09:26 Anisocytosis 1+ 01/10/21 09:26 Microcytosis Not Reportable 01/10/21 09:26 Macrocytosis Not Reportable 01/10/21 09:26 Spherocytes Not Reportable 01/10/21 09:26 Pappenheimer Bodies Not Reportable 01/10/21 09:26 Sickle Cells Not Reportable 01/10/21 09:26 Target Cells Not Reportable 01/10/21 09:26 Tear Drop Cells Not Reportable 01/10/21 09:26 Ovalocytes Not Reportable 01/10/21 09:26 Helmet Cells Not Reportable 01/10/21 09:26 [place] Bodies Not Reportable 01/10/21 09:26 [place] Rings Not Reportable 01/10/21 09:26 [place] Cells Not Reportable 01/10/21 09:26 Bite Cells Not Reportable 01/10/21 09:26 Crenated Cell Not Reportable 01/10/21 09:26 Elliptocytes Not Reportable 01/10/21 09:26 Acanthocytes (Spur) Not Reportable 01/10/21 09:26 Rouleaux Not Reportable 01/10/21 09:26 Hemoglobin C Crystals Not Reportable 01/10/21 09:26 Schistocytes Not Reportable 01/10/21 09:26 Malaria parasites Not Reportable 01/10/21 09:26 Lucas Bodies Not Reportable 01/10/21 09:26 Hem Pathologist Commnt No 01/10/21 09:26 PT 16.9 Sec. (12.2-14.9) H 01/01/21 12:45 INR 1.39 (0.87-1.13) H 01/01/21 12:45 APTT 25.1 Sec. (24.2-36.6) 12/22/20 14:38 ABG pH 7.345 pH Units (7.350-7.450) L 01/07/21 17:14 POC ABG pCO2 41.4 mmHg (32.0-48.0) 01/07/21 03:07 ABG pCO2 40.3 mm Hg 01/07/21 17:14 POC ABG pO2 94.5 mmHg (83-108) 01/07/21 03:07 ABG pO2 67.4 mm Hg (80.0-90.0) L 01/07/21 17:14 POC ABG HCO3 22.7 01/07/21 03:07 ABG HCO3 21.5 mmol/L (20.0-26.0) 01/07/21 17:14 ABG O2 Saturation 94.3 % (95.0-99.0) L 01/07/21 17:14 ABG O2 Content 11.6 (0.0-44) 01/07/21 17:14 POC ABG Base Excess -2.7 01/07/21 03:07 ABG Base Excess -3.9 mmol/L (-2.0-3.0) L 01/07/21 17:14 ABG Hemoglobin 8.9 gm/dl (14.0-18.0) L 01/07/21 17:14 ABG Oxyhemoglobin 96.6 (94-98) 01/07/21 03:07 ABG Carboxyhemoglobin 1.5 % (0.0-5.0) 01/07/21 17:14 ABG Methemoglobin 0.6 % (0.0-1.5) 01/07/21 17:14 ABG Sodium 135.6 mmol/L (136.0-145.0) L 01/07/21 03:07 ABG Potassium 4.0 mmol/L (3.40-4.50) 01/07/21 03:07 ABG Chloride 102.0 mmol/L (98-107) 01/07/21 03:07 ABG Glucose 181 mg/dL (65-95) H 01/07/21 03:07 Oxyhemoglobin 92.3 % (95.0-99.0) L 01/07/21 17:14 Carboxyhemoglobin 0.7 (0.5-1.5) 01/07/21 03:07 FiO2 21 % 01/07/21 17:14 FiO2 % 45.0 01/07/21 03:07 Sodium 141 mmol/L (137-145) 01/26/21 04:19 Potassium 3.7 mmol/L (3.6-5.0) 01/26/21 04:19 Chloride 100.6 mmol/L (98-107) 01/26/21 04:19 Carbon Dioxide 26 mmol/L (22-30) 01/26/21 04:19 Anion Gap 18 mmol/L 01/26/21 04:19 BUN 49 mg/dL (9-20) H 01/26/21 04:19 Creatinine 7.1 mg/dL (0.8-1.3) H 01/26/21 04:19 Estimated GFR 10 ml/min 01/26/21 04:19 BUN/Creatinine Ratio 7 % 01/26/21 04:19 Glucose 98 mg/dL (75-100) 01/26/21 04:19 POC Glucose 122 mg/dL (70-105) H 01/26/21 11:16 Lactic Acid 1.10 mmol/L (0.7-2.0) 01/14/21 05:39 Calcium 9.0 mg/dL (8.4-10.2) 01/26/21 04:19 Phosphorus 2.60 mg/dL (2.5-4.5) 01/23/21 05:45 Magnesium 1.50 mg/dL (1.7-2.3) L 01/26/21 04:19 Total Bilirubin 0.60 mg/dL (0.1-1.2) 01/21/21 04:39 AST 28 units/L (5-40) 01/21/21 04:39 ALT 25 units/L (7-56) 01/21/21 04:39 Alkaline Phosphatase 143 units/L (35-129) H 01/21/21 04:39 Ammonia 30.0 umol/L (25-60) 12/22/20 14:38 Troponin T 0.021 ng/mL (0.00-0.029) 12/22/20 14:38 Total Protein 6.1 g/dL (6.3-8.2) L 01/21/21 04:39 Albumin 3.0 g/dL (3.9-5) L 01/21/21 04:39 Albumin/Globulin Ratio 1.0 % 01/21/21 04:39 Triglycerides 73 mg/dL (2-149) 01/18/21 04:19 Lipase 41 units/L (13-60) 12/22/20 14:38 Procalcitonin > 200.00 ng/mL (<0.15) 12/24/20 15:06 TSH 1.470 mlU/mL (0.270-4.200) 12/28/20 19:44 Arterial Blood Glucose 181 mg/dL (65-95) H 01/07/21 03:07 Arterial Blood Ionized Calcium 4.3 mg/dL (4.6-5.3) L 01/07/21 03:07 Urine Color Yellow (Yellow) 12/22/20 18:53 Urine Turbidity Clear (Clear) 12/22/20 18:53 Urine pH 7.0 (5.0-7.0) 12/22/20 18:53 Ur Specific [place] 1.012 (1.003-1.030) 12/22/20 18:53 Urine Protein >500 mg/dL (Negative) 12/22/20 18:53 Urine Glucose (UA) Neg mg/dL (Negative) 12/22/20 18:53 Urine Ketones Neg mg/dL (Negative) 12/22/20 18:53 Urine Blood Neg (Negative) 12/22/20 18:53 Urine Nitrite Neg (Negative) 12/22/20 18:53 Urine Bilirubin Neg (Negative) 12/22/20 18:53 Urine Urobilinogen < 2.0 mg/dL (<2.0) 12/22/20 18:53 Ur Leukocyte Esterase Neg (Negative) 12/22/20 18:53 Urine WBC (Auto) < 1.0 /HPF (0.0-6.0) 12/22/20 18:53 Urine RBC (Auto) 1.0 /HPF (0.0-6.0) 12/22/20 18:53 Fluid Type Dialysate 12/22/20 Unknown Fluid Color Colorless 12/22/20 Unknown Fluid Appearance Cloudy 12/22/20 Unknown Fluid WBC 208 /mm3 12/22/20 Unknown Fluid RBC 45 /mm3 12/22/20 Unknown Fluid Seg Neutrophils 82.0 % 12/22/20 Unknown Fluid Lymphocytes 11.0 % 12/22/20 Unknown Fluid Reactive Lymphs 0 % 12/22/20 Unknown Fluid Monocytes 7.0 % 12/22/20 Unknown Fluid Eosinophils 0 % 12/22/20 Unknown Fluid Basophils 0 % 12/22/20 Unknown Random Vancomycin 13.7 ug/mL (0-40.0) 12/26/20 Unknown Digoxin 0.8 ng/mL (0.9-2.0) L 01/11/21 05:18 Hepatitis A IgM Ab Non-reactive (NonReactive) 12/23/20 11:38 Hep Bs Antigen Non-reactive (Negative) 12/23/20 11:38 Hep B Core IgM Ab Non-reactive (NonReactive) 12/23/20 11:38 Hepatitis C Antibody Non-reactive (NonReactive) 12/23/20 11:38 Blood Type A POSITIVE 01/06/21 07:10 Antibody Screen Negative 01/06/21 07:10 Crossmatch See Detail 01/06/21 07:10 Jeffery/IV: Voiding Method Self-Catheterization Active Medications - Current Medications Current Medications: Generic Name Dose Route Start Last Admin Trade Name Freq PRN Reason Stop Dose Admin Acetaminophen 650 mg 12/31/20 15:30 01/21/21 05:28 Acetaminophen 650 Mg Rect Supp SC 650 mg Q6H PRN Administration Non Cardiac Pain or Temp>100.5 Clonidine HCl 0.2 mg 01/11/21 10:00 01/25/21 09:42 Clonidine Tts 0.2 Mg/24 Hr Patch TD 0.2 mg We THOMAS Administration Dextrose 50 ml 01/14/21 17:59 01/18/21 15:10 Dextrose 50% In Water (25gm) 50 Ml Syringe IV 20 ml Q30MIN PRN Administration Hypoglycemia Protocol Digoxin 0.125 mg 01/09/21 12:00 01/25/21 11:35 Digoxin 0.5 Mg/2 Ml Inj IV 0.125 mg Q48H THOMAS Administration Diphenhydramine HCl 50 mg 01/20/21 10:10 01/24/21 02:21 Diphenhydramine 50 Mg/Ml Vial IV 50 mg Q6H PRN Administration Itching Famotidine 10 mg 12/24/20 13:00 01/26/21 10:04 Famotidine 20 Mg/2 Ml Inj IV 10 mg BID THOMAS Administration Haloperidol Lactate 5 mg 12/29/20 14:16 01/22/21 23:56 Haloperidol Lactate 5 Mg/1 Ml Inj IV 5 mg Q12H PRN Administration Agitation Heparin Sodium (Porcine) 5,000 unit 12/24/20 10:00 01/26/21 10:04 Heparin 5,000 Unit/1 Ml Vial SUB-Q 5,000 unit Q12HR THOMAS Administration Hydralazine HCl 10 mg 01/10/21 14:00 01/26/21 10:05 Hydralazine 20 Mg/1 Ml Inj IV 10 mg Q4HR THOMAS Administration Hydromorphone HCl 0.25 mg 01/09/21 10:53 01/25/21 19:52 Hydromorphone 1 Mg/1 Ml Inj IV 0.25 mg Q6H PRN Administration Pain , Severe (7-10) Hydrophilic Ointment 1 applic 12/31/20 06:39 01/11/21 21:28 Lip Therapy Vaseline TP 1 applic Q2HR PRN Administration Dry Lips Sodium Chloride 100 mls @ 999 mls/hr 01/19/21 09:30 Nacl 0.9% IV [place] PRN Hypotension Octreotide Acetate 100 mcg/ 101 mls @ 200 mls/hr 01/21/21 15:00 01/26/21 10:05 Sodium Chloride IV 200 mls/hr Q8H THOMAS Administration Amino Acids/Electrolytes/Dextrose 2,016 mls @ 84 mls/hr 01/25/21 20:00 01/25/21 21:36 Tpn Adult IV 01/26/21 19:59 84 mls/hr DAILY@1999 [facility] Administration Protocol Amino Acids/Electrolytes/Dextrose 2,016 mls @ 84 mls/hr 01/26/21 20:00 Tpn Adult IV 01/27/21 19:59 DAILY@1999 [facility] Protocol Insulin Glargine 5 units 01/18/21 22:00 01/25/21 21:35 Insulin Glargine 100 Units/Ml SUB-Q 5 units QHS [facility] Administration Insulin Human Lispro 0 unit 01/03/21 12:00 01/26/21 13:41 Insulin Lispro 100 Unit/Ml SUB-Q Not Given Q6HR [facility] Protocol Metoprolol Tartrate 5 mg 12/30/20 12:00 01/26/21 10:04 Metoprolol Tartrate 5 Mg/5 Ml Inj IV 5 mg Q4HR [facility] Administration Multi-Ingred Cream/Lotion/Oil/Oint 1 applic 12/31/20 06:39 Mineral Oil/Petrolatum, White Ophth Oint 3.5 Gm OU Q4HR PRN Dry Eye(s) Ondansetron HCl 4 mg 01/25/21 11:56 01/25/21 12:55 Ondansetron 4 Mg/2 Ml Inj IV 4 mg Q4H PRN Administration Nausea And Vomiting Scopolamine 1 each 01/15/21 11:00 01/24/21 10:01 Scopolamine Transdermal Patch 72 Hr TD 1 each Q3D THOMAS Administration Sodium Chloride 10 ml 12/22/20 22:00 01/26/21 10:06 Sodium Chloride 0.9% 10 Ml Flush Syringe IV 10 ml BID THOMAS Administration Sodium Chloride 10 ml 12/22/20 19:42 01/09/21 17:27 Sodium Chloride 0.9% 10 Ml Flush Syringe IV 10 ml PRN PRN Administration LINE FLUSH Nutrition/Malnutrition Assess - Dietary Evaluation Nutrition/Malnutrition Findings: Nutrition Notes Start: 12/24/20 12:36 Freq: Status: Active Protocol: Document 01/26/21 07:29 JUAN (Rec: 01/26/21 07:31 [id number]) Nutrition Notes Initial or Follow up Reassessment Current Diagnosis CKD (stage V CKD),Sepsis, Hypertension,Heart Failure, Small Bowel Obstruction Other Pertinent Diagnosis Peritonitis, SBO s/p resection Current Diet CPN at 84 ml/hr Labs/Tests Mg 1.5 Pertinent Medications Reviewed Height 5 ft 7 in Weight 80 kg [place] Body Weight (kg) 67.27 BMI 27.6 Weight Status Overweight Subjective/Other Information TPN day 32. Pt with NGT to [facility]. Percent of energy/protein needs met: 100%/100% Burn Absent Trauma Absent Current % PO Negligible Minimum of two criteria No #2 Nutrition Diagnosis Increased nutrient needs ( specify in comment below) Diagnosis Progress(for reassessment Continues documentation) #1 Nutrition Diagnosis Inadequate oral intake Diagnosis Progress(for reassessment Continues documentation) Is patient on ventilator? No Is Patient Ambulatory and/or Out of Bed No REE-([facility]-confined to bed) 1875.348 Kcal/Kg value to use for calculation 21 Approximate Energy Requirements Using 1680 kcal/Kg Calculation Used for Recommendations Kcal/kg Additional Notes Pro needs: 101-121 g/day (1.25 -1.5 g/kg AdjBW, 81kg) Fluid needs per MD. Nutrition Intervention Change Diet Order: Continue CPN Nutrition Support: Continous CPN at 84 ml/hr: Osmoalitiy 1607 Mg 5 mEq MVI, MTE Kcal 1,674 Protein (gm) 121 Carbohydrates (gm) 350 Fat (gm) 0 Fluid (mL) 2,016 Fiber (gm) 0 Goal #1 Meet at least 75% of estimated energy and protein needs via CPN Anticipated Discharge Needs: continuous TPN at 84ml/hr Follow-Up By: 01/27/21 Additional Comments FU for TPN
--- NOTE | 2021-01-26 19:59 | XRay Report ---
Abdomen single view INDICATION: Abdominal pain IMPRESSION: The esophagogastric tube terminates in the region of the upper stomach. Signer Name: Andrzej Leos MD Signed: 01/26/2021 7:55 PM Workstation Name: [email or web address]
[2021-01-26] MEDS ORDERED: TOTAL PARENTERAL NUTRITION 2,016 ML IV SCH (20:00)
[2021-01-26] MEDS: INSULIN GLARGINE 100 UNITS/ML SUB-Q SCH (22:01)
[2021-01-27] MEDS: INSULIN LISPRO 100 UNIT/ML SUB-Q SCH ×4 (00:40→18:18)
[2021-01-27] MEDS: hydrALAZINE 20 MG/1 ML INJ IV SCH ×6 (02:11→21:10)
[2021-01-27] MEDS: METOPROLOL TARTRATE 5 MG/5 ML INJ IV SCH ×6 (02:11→21:09)
[2021-01-27 05:37] LABS: Basophils % (Auto) 0.4 % (0.0-1.8); Eosinophils # (Auto) 0.6 K/mm3 (0.0-0.4); Eosinophils % (Auto) 4.8 % (0.0-4.3); Hematocrit 25.1 % (35.5-45.6); Hemoglobin 8.6 gm/dl (11.8-15.2); Lymphocytes # (Auto) 0.9 K/mm3 (1.2-5.4); Lymphocytes % (Auto) 7.5 % (13.4-35.0); Mean Corpuscular HGB Conc 34 % (32-34); Mean Corpuscular Volume 90 fl (84-94); Monocytes # (Auto) 1.1 K/mm3 (0.0-0.8); Monocytes % (Auto) 9.3 % (0.0-7.3); Platelet Count 171 K/mm3 (140-440); Red Blood Count 2.79 M/mm3 (3.65-5.03); Red Cell Distribution Width 16.1 % (13.2-15.2)
[2021-01-27 06:24] LABS: Calcium 8.9 mg/dL (8.4-10.2)
[2021-01-27] MEDS: OCTREOTIDE 100 MCG in SODIUM CHLORIDE 0.9% 100 ML IV SCH ×3 (07:29→22:55)
[2021-01-27] MEDS: FAMOTIDINE 20 MG/2 ML INJ IV SCH ×2 (10:10→21:08)
[2021-01-27] MEDS: SCOPOLAMINE TRANSDERMAL PATCH 72 HR TD SCH (10:10)
[2021-01-27] MEDS: HEPARIN 5,000 UNIT/1 ML VIAL SUB-Q SCH ×2 (10:11→21:12)
--- NOTE | 2021-01-27 10:18 | Progress Note ---
Assessment and Plan Assessment and plan: This is a 60 YO Male with ESRD on PD, GERD, Crohn's Disease, Nicotine Dependence, HTN, Systolic CHF(EF 35%) who presented to the emergency department on 12/22 with complaints of abdominal pain which began shortly after eating fast food rated 10/10 which is periumbilical, constant, associated with fever, nausea and multiple sites of vomiting and self-reported inability to undergo PD. In the emergency room patient underwent a CT scan of the abdomen/pelvis which revealed evidence of partial small bowel obstruction, symptoms were consistent with bacterial peritonitis. Patient was admitted to the hospital service with sepsis, peritonitis, and small bowel obstruction with consults to general surgery, nephrology, infectious disease and [facility]. 12/23. Patient had temperature 101.2 F, tachycardia and elevated lactic acid on admission. Meet sepsis criteria. Started on IV antibiotics. ID has been c onsulted. Surgery consulted this a.m.-advised laparoscopy. He remains on NG tube connected to suction. 12/24. Patient was noted to have peritonitis yesterday and patient undergoing exploratory laparotomy. Patient remained intubated after procedure and is in ICU. Now on broad-spectrum antibiotics. ID on board. 12/25. Remains mechanically ventilated and sedated. Temp 103 Fahrenheit. Antibiotics broadened-ID added fluconazole and Flagyl. Blood cultures ordered. Plan to repeat CT abdomen tomorrow if not better. Surgery following. 12/26: Patient remains on mechanical ventilation on CMV tidal line 550, rate of 14, PEEP of 8 and 30% FiO2 and sedated on fentanyl 4 micrograms. Today we will remove his Jeffery and CCM dropped his rate controlled him on CPAP. We will trend CBC given recent drop in H/H. 12/27: Patient remains intubated on CMV tidal volume 550, rate 12, PEEP 8 on 30% FiO2 at the time my examination. Patient's TPN will be changed to PPN. Patient's fentanyl drip will be changed to IV push fentanyl and have a permacath placed today and midline. Patient was placed on a spontaneous breathing trial was switched back to CMV prior to procedure. 12/28: Patient on fentanyl but awake and follows commands. At the time of my examination he was on a CPAP trial and is scheduled to receive HD today. s/o permacath and PICC placement with vascular yesterday. His blood culture grew Prevotella and addition to Streptococcus bovis. This evening Dr. Spicer attempted to extubate the patient and his heart rate went to the 180s. Stat EKG obtained and cardiology consulted. 12/29: Patient was started on amiodarone IV for A. fib RVR yesterday and today he is more rate controlled into the 70s and 80s. Patient was extubated yesterday and is currently on Ventimask. Patient will be transferred to [facility]. Patient continues to be n.p.o. with TPN and NG tube to LIS. He is hypokalemic today which was repleted. 12/30; patient was on IV amiodarone for treatment with RVR, rate is controlled. Patient was off oxygen. patient is n.p.o. and on TPN. Surgery is following the patient. 12/31: Patient was intubated overnight for respiratory distress and this morning on examination he was on assist control tidal volume 450, rate 20, PEEP 6, 100% FiO2 and RT was getting a ABG to adjust vent settings. Patient had a acute bump in WBC and per ID recommendations we will obtain a CT abdomen/pelvis if leukocytosis persist. Patient is on TPN and sedated with Levophed. Patient is also on vasopressor support with Levophed. Per surgery his ileus is resolving however will maintain OGT to LIWS. 01/01: Patient was started on a vasopressin yesterday late evening. This morning patient is on 20 mcg of Levophed and 0.03 vasopressin and sedated on 20 mcg of propofol. Patient WBC increased today and he is hypokalemic. We will treat hyperkalemia. Patient had a CT chest and abdomen/pelvis pending. The time examination total of 450, rate 20, PEEP of 6 and 35 percent FiO2. Per RN, Dr Pollock has stated that the patient will be returning to the OR today for likely anastomosis seen on CT abdomen/pelvis. 01/02: Patient noted, WBC improving, but noted to have anemia, will transfuse additional unit of Blood and repeat H/H. continue supportive care. 01/03: Continue to wean pressors, ABX PER ID, patient to return to OR today for washout and possible closure, CONTINUE TPN 01/04: Continues to show some improvement. Today is POD#12 s/p ex lap with extensive lysis of adhesions and two small bowel resections with primary anastamosis for SBO with necrotic segment small bowel. POD#3 s/p ex lap, resection of perforated anastamosis, washout and abthera wound vac placement. POD#1 s/p ex lap with right hemicolectomy. Surgery planning to take back to the OR on Saturday with the hope to anastamos ileum to transverse colon and close abdomen. keep NGT to suction. Pt in deep sedation due to open abdomen. Per ID - Continue IV Zosyn, renally dosed for Strep bacteremia treatment till 01/06/2021 -On TPN 01/05: Patient continues on HD, anticipate return to OR tomorrow for closure and anastemosis. Continues with deep sedation due to open abdomen 01/06: Continue supportive care, monitor pressures and electrolytes. He is post op Exploratory laparotomy, 2. Jejunal colonic anastomosis,3. Segmental small bowel resection and anastemosis closure today. Continue wound vac 01/07: Continue supportive care, Today is POD#15 s/p ex lap with extensive lysis of adhesions and two small bowel resections with primary anastamosis for SBO with necrotic segment small bowel. POD#6 s/p ex lap, resection of perforated anastamosis, washout and abthera wound vac placement. POD#4 s/p ex lap with right hemicolectomy. POD #1 exploratory laparotomy, 2. Jejunal colonic anastomosis,3. Segmental small bowel resection. Continue to monitor and correct electrolytes. Patient remains on fentanyl and TPN with lipids. Still hypoactive bowel sounds. 16: Patient now extubated, asked when he can go home, Still lethargic. Continue wound management, wound vac, Will need Rehab eval prior to discharge. 01/09: Patient remains on TPN, was started on labetalol drip per cardiology, africa dueñas had uncontrolled hypertension today however he cannot be given p.o. medications ileus resolves per surgery. Patient received hemodialysis today. NG tube remains to low intermittent suction. 01/10: Patient has some leukocytosis, slight hypokalemia and hyponatremia, metabolic acidosis. NG tube to LIWS, continue TPN. Patient will be downgraded to IMCU today. [facility] is working on placement. Will change frequency of hydralazine and discontinue labetalol drip. We will obtain a.m. BMP/mag/Phos and CBC. Infectious disease will like to start Zosyn if leukocytosis continues to worsen. 01/11: Patient leukocytosis has slightly improved potassium with in normal limits and other electrolytes are elevated but patient is scheduled for HD today. Remains on RA and A,A,Ox4. BP better controlled but remains elevated and we will increase clonidine dose. 01/12/2021; patient's blood pressure is better after dialysis and as needed IV medications and clonidine patch. Patient is followed by general surgery. Patient was alert and oriented and asked when he is going home. 01/13: Surgery is concerned about a leak at his anastamosis given increased output and will treat as controlled fistula and start an octreotide drip. And per surgery if he requires operative intervention will likely need to be left in discontinuity and eventual ileostomy as he has already failed two anastamoses. Patient still has tongue swelling and slurred speech. He is on Benadryl. 01/14: Patient's tongue swelling is improved, patient is alert and oriented, CAM ICU negative. Continue NG tube to low wall intermittent suction. Leukocytosis is improving. Hypomagnesemia resolved. Epogen with HD 01/15: Patient tongue swelling is much improved, bladder scan completed by bedside RN and he needed to be straight cathed. NGT output decreased. Leukocytosis improving. Patient has been having episodes of hypoglycemia during the day and he is on cyclic TPN, Lantus rescheduled to nightly and dosage decreased. 01/16: Continue management per ID and surgery. Will defer repeat CT of the abdomen to the team surgery has been approved by nephrology. Continue current diet and advance all to ice if okay with surgery discussed with nursing staff. 01/17: Discussed surgical recommendation of strict n.p.o. except for small amount of ice as patient has already failed to anastomosis. And risk for additional surgery with tissues were extremely friable from previous scar. He continues on octreotide drip to slow down GI output HARIS drain remains in place with NG suction for decompression. Patient verbalized understanding although stressed about being discharged. We will continue IMCU care unless otherwise advised by david andersen. Prognosis remains guarded continue to monitor electrolytes considering GI output. 01/18: Continue supportive care, BP mildly elevated, continue to monitor, continue current therapy, if no return to PO soon may consider Increasing clonidine to 0.3, PO when ok with surgery. 01/19:Continue supportive care, Per ID continue IV Zosyn, plan to stop at 3 weeks from last surgery end date: 01/24/2021. Other management per surgery. Continue TPN. 01/20: Discussed with Surgery, will continue current management. Advised patient of the findings and plan. 01/21: Continue supportive care. Continue management per surgery advance diet when okay with surgery. Plan of care discussed with the patient in detail. 01/22: NG tube to be replaced explained to the patient why this is important. I agree with PT OT discussed with nursing staff very important to let the PT team know that they should manage HARIS drain while patient is ambulating so that he does not come out. Continue current management. Change in ocreotide to q8h and d/c drip NOTED 01/23: Continue supportive care, HD today, counselling provided to the patient on compliance with medical management 01/24: Replace NGT, Continue management per Surgery. POD 32. Mild hypokalemia noted, will replace. 01/25: Brief summary patient is a 60-year-old male admitted with abdominal pain and noted to have necrotic bowel concerning for PD associated peritonitis. Catheter was placed to convert to HD. Patient also underwent multiple surgical interventions. Initial cultures showed Streptococcus bovis bacteremia and Prevotella bacteremia a COLIN was without vegetations repeat blood cultures have been negative. Part of the surgery is included ex lap, resection of perforated anastomosis, washout and a better wound VAC placement on 01/01. While progress has remained slow if has indeed shown some improvement. Patient is agitated about being in the hospital but understands the care management been provided his vital to his health and to prevent further surgeries. The NG tube has been pulled out 2 days ago he vehemently refused the tube being placed back but after a day of nausea with associated vomiting he was accepting of the chest tube to put back. He continues on TPN. We will continue to monitor electrolytes and correct as needed. This a.m. and erroneous blood was obtained likely from the same line as TPN repeat was done which showed normalizing factors. Patient completed antibiotics on 01/25/2020 . 01/26 Patient with severe sepsis with septic shock, small bowel obstruction, necrotic bowel s/p multiple surgeries. He complains of abdominal pain. No fever currently. He asked me when is he going home and i explained that he is not yet stable for discharge 01/27 Patient with severe sepsis with septic shock, small bowel obstruction, necrotic bowel s/p multiple surgeries. He complains of abdominal pain. No fever currently. Paroxysmal atrial fib managed by cardiology Severe Sepsis with shock Streptococcus bovis bacteremia/Prevotella bacteremia Gwendolyn albicans tracheal aspirate Small bowel obstruction/necrotic bowel s/p ex lap with extensive lysis of adhesions, 2 small bowel resections with primary anastomosis, right hemicolectomy, jejunal colonic anastomosis, segmental small bowel resection Postoperative ileus Atrial fibrillation with RVR Leukocytosis Hypochloremia Gwendolyn albicans in tracheal aspirate from 12/24 ESRD on PD, PermCath to be placed Transaminitis Systolic CHF(EF 35%) Crohn's disease Hypertension -[facility], surgery, infectious disease, nephrology, vascular surgery, cardiology consulted, appreciate recommendations -12/24 S/p ex lap with extensive expectations, 2 small bowel resections with primary anastomosis with surgery on 12/23 -s/p PICC and Permacath placement with vascular surgery on 12/27 -Extubated on 12/28, reintubated 12/31 for respiratory distress and extubated 01/08 -12/29 echocardiogram shows moderate concentric LVH, small pericardial effusion, transmitral Doppler flow pattern is grade 1 abnormal relaxation pattern, left- ventricular systolic function normal, LVEF 50 to 55%, no wall motion abnormalities. -01/01 CT abdomen/pelvis shows small pericardial effusion, mild coronary artery atherosclerotic calcification, small bilateral pleural effusions with associated volume loss, no convincing evidence of bowel obstruction or inflammation, postoperative changes from interval/recent midline laparotomy with a moderate amount of free fluid throughout the abdomen, small amount of dependent free air presumably postoperative -01/02 s/p ex lap, resection of perforated anastamosis, washout and abthera wound vac placement. -01/04 s/p ex lap with right hemicolectomy. -01/06 s/p exploratory laparotomy, Jejunal colonic anastomosis, Segmental small bowel resection. -s/p Vasopressor support with Levophed and vasopressin -Transitioned to HD from PD -HD per nephro, Epogen with HD -Strict NPO -TPN -Octreotide drip -NGT to LIWS -s/p IV antibiotics -Tobacco abuse cessation counseling -Trend CBC, BMP DVT/GI prophylaxis: PPI, heparin subcu, SCDs to bilateral lower extremities while in bed Disposition: IMCU History Interval history: Patient asking when his NG tube will come out and when he is going home Patient has had multiple surgeries Less abdominal pain No fever currently Hospitalist Physical - Physical exam Narrative exam: Gen:Not in acute distress, lying in bed Neck:supple, no JVD Lungs:Clear to auscultation bilat, no rales Heart:S1 and S2 reg, no murmurs, no rubs or gallop Abd: covered with dressing, HARIS drain, decreased bowel sounds Ext: No edema, no clubbing, no cyanosis Neuro:Awake,alert,oriented X3, moves all extremities psych: Calm, co-operative - Constitutional Vitals: Temp Pulse Resp BP Pulse Ox 99.0 F 75 15 155/82 96 01/27/21 07:00 01/27/21 10:11 01/27/21 05:01 01/27/21 10:11 01/27/21 05:01 General appearance: Present: no acute distress HEART Score - HEART Score Troponin: Troponin T 0.021 ng/mL (0.00-0.029) 12/22/20 14:38 Results - Labs CBC & Chem 7: 01/27/21 04:19 01/27/21 04:19 Labs: Laboratory Last Values WBC 12.4 K/mm3 (4.5-11.0) H 01/27/21 04:19 RBC 2.79 M/mm3 (3.65-5.03) L 01/27/21 04:19 Hgb 8.6 gm/dl (11.8-15.2) L 01/27/21 04:19 Hct 25.1 % (35.5-45.6) L 01/27/21 04:19 MCV 90 fl (84-94) 01/27/21 04:19 MCH 31 pg (28-32) 01/27/21 04:19 MCHC 34 % (32-34) 01/27/21 04:19 RDW 16.1 % (13.2-15.2) H 01/27/21 04:19 Plt Count 171 K/mm3 (140-440) 01/27/21 04:19 Lymph % (Auto) 7.5 % (13.4-35.0) L 01/27/21 04:19 [facility] % (Auto) 9.3 % (0.0-7.3) H 01/27/21 04:19 Eos % (Auto) 4.8 % (0.0-4.3) H 01/27/21 04:19 Baso % (Auto) 0.4 % (0.0-1.8) 01/27/21 04:19 Lymph # (Auto) 0.9 K/mm3 (1.2-5.4) L 01/27/21 04:19 [facility] # (Auto) 1.1 K/mm3 (0.0-0.8) H 01/27/21 04:19 Eos # (Auto) 0.6 K/mm3 (0.0-0.4) H 01/27/21 04:19 Baso # (Auto) 0.0 K/mm3 (0.0-0.1) 01/27/21 04:19 Add Manual Diff Complete 01/10/21 09:26 Total Counted 100 01/10/21 09:26 Seg Neutrophils % 78.0 % (40.0-70.0) H 01/27/21 04:19 Seg Neuts % (Manual) 95.0 % (40.0-70.0) H 01/10/21 09:26 Band Neutrophils % 1.0 % 01/10/21 09:26 Lymphocytes % (Manual) 3.0 % (13.4-35.0) L 01/10/21 09:26 Reactive Lymphs % (Man) 1.0 % 12/29/20 05:16 Monocytes % (Manual) 1.0 % (0.0-7.3) 01/10/21 09:26 Eosinophils % (Manual) 2.0 % (0.0-4.3) 12/29/20 05:16 Metamyelocytes % 2.0 % 12/29/20 05:16 Nucleated RBC % Not Reportable 01/10/21 09:26 Seg Neutrophils # 9.7 K/mm3 (1.8-7.7) H 01/27/21 04:19 Seg Neutrophils # Man 17.3 K/mm3 (1.8-7.7) H 01/10/21 09:26 Band Neutrophils # 0.2 K/mm3 01/10/21 09:26 Lymphocytes # (Manual) 0.5 K/mm3 (1.2-5.4) L 01/10/21 09:26 Abs React Lymphs (Man) 0.0 K/mm3 01/10/21 09:26 Monocytes # (Manual) 0.2 K/mm3 (0.0-0.8) 01/10/21 09:26 Eosinophils # (Manual) 0.0 K/mm3 (0.0-0.4) 01/10/21 09:26 Basophils # (Manual) 0.0 K/mm3 (0.0-0.1) 01/10/21 09:26 Metamyelocytes # 0.0 K/mm3 01/10/21 09:26 Myelocytes # 0.0 K/mm3 01/10/21 09:26 Promyelocytes # 0.0 K/mm3 01/10/21 09:26 Blast Cells # 0.0 K/mm3 01/10/21 09:26 WBC Morphology Not Reportable 01/10/21 09:26 Hypersegmented Neuts Not Reportable 01/10/21 09:26 Hyposegmented Neuts Not Reportable 01/10/21 09:26 Hypogranular Neuts Not Reportable 01/10/21 09:26 Smudge Cells Not Reportable 01/10/21 09:26 Toxic Granulation 1+ 01/10/21 09:26 Toxic Vacuolation Not Reportable 01/10/21 09:26 Dohle Bodies Not Reportable 01/10/21 09:26 Pelger-Huet Anomaly Not Reportable 01/10/21 09:26 Lamar Rods Not Reportable 01/10/21 09:26 Platelet Estimate Consistent w auto 01/10/21 09:26 Clumped Platelets Not Reportable 01/10/21 09:26 Plt Clumps, EDTA Not Reportable 01/10/21 09:26 Large Platelets Not Reportable 01/10/21 09:26 Giant Platelets Not Reportable 01/10/21 09:26 Platelet Satelliting Not Reportable 01/10/21 09:26 Plt Morphology Comment Not Reportable 01/10/21 09:26 RBC Morphology Not Reportable 01/10/21 09:26 Dimorphic RBCs Not Reportable 01/10/21 09:26 Polychromasia Not Reportable 01/10/21 09:26 Hypochromasia Not Reportable 01/10/21 09:26 Poikilocytosis Not Reportable 01/10/21 09:26 Anisocytosis 1+ 01/10/21 09:26 Microcytosis Not Reportable 01/10/21 09:26 Macrocytosis Not Reportable 01/10/21 09:26 Spherocytes Not Reportable 01/10/21 09:26 Pappenheimer Bodies Not Reportable 01/10/21 09:26 Sickle Cells Not Reportable 01/10/21 09:26 Target Cells Not Reportable 01/10/21 09:26 Tear Drop Cells Not Reportable 01/10/21 09:26 Ovalocytes Not Reportable 01/10/21 09:26 Helmet Cells Not Reportable 01/10/21 09:26 [place]-Parmelee Bodies Not Reportable 01/10/21 09:26 [place] Rings Not Reportable 01/10/21 09:26 Jenny Cells Not Reportable 01/10/21 09:26 Bite Cells Not Reportable 01/10/21 09:26 Crenated Cell Not Reportable 01/10/21 09:26 Elliptocytes Not Reportable 01/10/21 09:26 Acanthocytes (Spur) Not Reportable 01/10/21 09:26 Rouleaux Not Reportable 01/10/21 09:26 Hemoglobin C Crystals Not Reportable 01/10/21 09:26 Schistocytes Not Reportable 01/10/21 09:26 Malaria parasites Not Reportable 01/10/21 09:26 Lucas Bodies Not Reportable 01/10/21 09:26 Hem Pathologist Commnt No 01/10/21 09:26 PT 16.9 Sec. (12.2-14.9) H 01/01/21 12:45 INR 1.39 (0.87-1.13) H 01/01/21 12:45 APTT 25.1 Sec. (24.2-36.6) 12/22/20 14:38 ABG pH 7.345 pH Units (7.350-7.450) L 01/07/21 17:14 POC ABG pCO2 41.4 mmHg (32.0-48.0) 01/07/21 03:07 ABG pCO2 40.3 mm Hg 01/07/21 17:14 POC ABG pO2 94.5 mmHg (83-108) 01/07/21 03:07 ABG pO2 67.4 mm Hg (80.0-90.0) L 01/07/21 17:14 POC ABG HCO3 22.7 01/07/21 03:07 ABG HCO3 21.5 mmol/L (20.0-26.0) 01/07/21 17:14 ABG O2 Saturation 94.3 % (95.0-99.0) L 01/07/21 17:14 ABG O2 Content 11.6 (0.0-44) 01/07/21 17:14 POC ABG Base Excess -2.7 01/07/21 03:07 ABG Base Excess -3.9 mmol/L (-2.0-3.0) L 01/07/21 17:14 ABG Hemoglobin 8.9 gm/dl (14.0-18.0) L 01/07/21 17:14 ABG Oxyhemoglobin 96.6 (94-98) 01/07/21 03:07 ABG Carboxyhemoglobin 1.5 % (0.0-5.0) 01/07/21 17:14 ABG Methemoglobin 0.6 % (0.0-1.5) 01/07/21 17:14 ABG Sodium 135.6 mmol/L (136.0-145.0) L 01/07/21 03:07 ABG Potassium 4.0 mmol/L (3.40-4.50) 01/07/21 03:07 ABG Chloride 102.0 mmol/L (98-107) 01/07/21 03:07 ABG Glucose 181 mg/dL (65-95) H 01/07/21 03:07 Oxyhemoglobin 92.3 % (95.0-99.0) L 01/07/21 17:14 Carboxyhemoglobin 0.7 (0.5-1.5) 01/07/21 03:07 FiO2 21 % 01/07/21 17:14 FiO2 % 45.0 01/07/21 03:07 Sodium 139 mmol/L (137-145) 01/27/21 04:19 Potassium 3.6 mmol/L (3.6-5.0) 01/27/21 04:19 Chloride 97.9 mmol/L (98-107) L 01/27/21 04:19 Carbon Dioxide 24 mmol/L (22-30) 01/27/21 04:19 Anion Gap 21 mmol/L 01/27/21 04:19 BUN 76 mg/dL (9-20) H 01/27/21 04:19 Creatinine 9.9 mg/dL (0.8-1.3) H 01/27/21 04:19 Estimated GFR 7 ml/min 01/27/21 04:19 BUN/Creatinine Ratio 8 % 01/27/21 04:19 Glucose 111 mg/dL (75-100) H 01/27/21 04:19 POC Glucose 129 mg/dL (70-105) H 01/27/21 05:25 Lactic Acid 1.10 mmol/L (0.7-2.0) 01/14/21 05:39 Calcium 8.9 mg/dL (8.4-10.2) 01/27/21 04:19 Phosphorus 2.60 mg/dL (2.5-4.5) 01/23/21 05:45 Magnesium 2.30 mg/dL (1.7-2.3) 01/27/21 04:19 Total Bilirubin 0.60 mg/dL (0.1-1.2) 01/21/21 04:39 AST 28 units/L (5-40) 01/21/21 04:39 ALT 25 units/L (7-56) 01/21/21 04:39 Alkaline Phosphatase 143 units/L (35-129) H 01/21/21 04:39 Ammonia 30.0 umol/L (25-60) 12/22/20 14:38 Troponin T 0.021 ng/mL (0.00-0.029) 12/22/20 14:38 Total Protein 6.1 g/dL (6.3-8.2) L 01/21/21 04:39 Albumin 3.0 g/dL (3.9-5) L 01/21/21 04:39 Albumin/Globulin Ratio 1.0 % 01/21/21 04:39 Triglycerides 73 mg/dL (2-149) 01/18/21 04:19 Lipase 41 units/L (13-60) 12/22/20 14:38 Procalcitonin > 200.00 ng/mL (<0.15) 12/24/20 15:06 TSH 1.470 mlU/mL (0.270-4.200) 12/28/20 19:44 Arterial Blood Glucose 181 mg/dL (65-95) H 01/07/21 03:07 Arterial Blood Ionized Calcium 4.3 mg/dL (4.6-5.3) L 01/07/21 03:07 Urine Color Yellow (Yellow) 12/22/20 18:53 Urine Turbidity Clear (Clear) 12/22/20 18:53 Urine pH 7.0 (5.0-7.0) 12/22/20 18:53 Ur Specific [place] 1.012 (1.003-1.030) 12/22/20 18:53 Urine Protein >500 mg/dL (Negative) 12/22/20 18:53 Urine Glucose (UA) Neg mg/dL (Negative) 12/22/20 18:53 Urine Ketones Neg mg/dL (Negative) 12/22/20 18:53 Urine Blood Neg (Negative) 12/22/20 18:53 Urine Nitrite Neg (Negative) 12/22/20 18:53 Urine Bilirubin Neg (Negative) 12/22/20 18:53 Urine Urobilinogen < 2.0 mg/dL (<2.0) 12/22/20 18:53 Ur Leukocyte Esterase Neg (Negative) 12/22/20 18:53 Urine WBC (Auto) < 1.0 /HPF (0.0-6.0) 12/22/20 18:53 Urine RBC (Auto) 1.0 /HPF (0.0-6.0) 12/22/20 18:53 Fluid Type Dialysate 12/22/20 Unknown Fluid Color Colorless 12/22/20 Unknown Fluid Appearance Cloudy 12/22/20 Unknown Fluid WBC 208 /mm3 12/22/20 Unknown Fluid RBC 45 /mm3 12/22/20 Unknown Fluid Seg Neutrophils 82.0 % 12/22/20 Unknown Fluid Lymphocytes 11.0 % 12/22/20 Unknown Fluid Reactive Lymphs 0 % 12/22/20 Unknown Fluid Monocytes 7.0 % 12/22/20 Unknown Fluid Eosinophils 0 % 12/22/20 Unknown Fluid Basophils 0 % 12/22/20 Unknown Random Vancomycin 13.7 ug/mL (0-40.0) 12/26/20 Unknown Digoxin 0.8 ng/mL (0.9-2.0) L 01/11/21 05:18 Hepatitis A IgM Ab Non-reactive (NonReactive) 12/23/20 11:38 Hep Bs Antigen Non-reactive (Negative) 12/23/20 11:38 Hep B Core IgM Ab Non-reactive (NonReactive) 12/23/20 11:38 Hepatitis C Antibody Non-reactive (NonReactive) 12/23/20 11:38 Blood Type A POSITIVE 01/06/21 07:10 Antibody Screen Negative 01/06/21 07:10 Crossmatch See Detail 01/06/21 07:10 Jeffery/IV: Voiding Method Self-Catheterization Active Medications - Current Medications Current Medications: Generic Name Dose Route Start Last Admin Trade Name Freq PRN Reason Stop Dose Admin Acetaminophen 650 mg 12/31/20 15:30 01/21/21 05:28 Acetaminophen 650 Mg Rect Supp SC 650 mg Q6H PRN Administration Non Cardiac Pain or Temp>100.5 Clonidine HCl 0.2 mg 01/11/21 10:00 01/25/21 09:42 Clonidine Tts 0.2 Mg/24 Hr Patch TD 0.2 mg We THOMAS Administration Dextrose 50 ml 01/14/21 17:59 01/18/21 15:10 Dextrose 50% In Water (25gm) 50 Ml Syringe IV 20 ml Q30MIN PRN Administration Hypoglycemia Protocol Digoxin 0.125 mg 01/09/21 12:00 01/25/21 11:35 Digoxin 0.5 Mg/2 Ml Inj IV 0.125 mg Q48H THOMAS Administration Diphenhydramine HCl 50 mg 01/20/21 10:10 01/24/21 02:21 Diphenhydramine 50 Mg/Ml Vial IV 50 mg Q6H PRN Administration Itching Famotidine 10 mg 12/24/20 13:00 01/27/21 10:10 Famotidine 20 Mg/2 Ml Inj IV 10 mg BID THOMAS Administration Haloperidol Lactate 5 mg 12/29/20 14:16 01/22/21 23:56 Haloperidol Lactate 5 Mg/1 Ml Inj IV 5 mg Q12H PRN Administration Agitation Heparin Sodium (Porcine) 5,000 unit 12/24/20 10:00 01/26/21 22:01 Heparin 5,000 Unit/1 Ml Vial SUB-Q 5,000 unit Q12HR THOMAS Administration Hydralazine HCl 10 mg 01/10/21 14:00 01/27/21 10:11 Hydralazine 20 Mg/1 Ml Inj IV 10 mg Q4HR THOMAS Administration Hydromorphone HCl 0.25 mg 01/09/21 10:53 01/25/21 19:52 Hydromorphone 1 Mg/1 Ml Inj IV 0.25 mg Q6H PRN Administration Pain , Severe (7-10) Hydrophilic Ointment 1 applic 12/31/20 06:39 01/11/21 21:28 Lip Therapy Vaseline TP 1 applic Q2HR PRN Administration Dry Lips Sodium Chloride 100 mls @ 999 mls/hr 01/19/21 09:30 Nacl 0.9% IV RYLAND PRN Hypotension Octreotide Acetate 100 mcg/ 101 mls @ 200 mls/hr 01/21/21 15:00 01/27/21 07:29 Sodium Chloride IV 200 mls/hr Q8H THOMAS Administration Amino Acids/Electrolytes/Dextrose 2,016 mls @ 84 mls/hr 01/26/21 20:00 01/26/21 20:58 Tpn Adult IV 01/27/21 19:59 84 mls/hr DAILY@1999 THOMAS Administration Protocol Insulin Glargine 5 units 01/18/21 22:00 01/26/21 22:01 Insulin Glargine 100 Units/Ml SUB-Q 5 units QHS THOMAS Administration Insulin Human Lispro 0 unit 01/03/21 12:00 01/27/21 06:37 Insulin Lispro 100 Unit/Ml SUB-Q Not Given Q6HR [facility] Protocol Metoprolol Tartrate 5 mg 12/30/20 12:00 01/27/21 10:11 Metoprolol Tartrate 5 Mg/5 Ml Inj IV 5 mg Q4HR THOMAS Administration Multi-Ingred Cream/Lotion/Oil/Oint 1 applic 12/31/20 06:39 Mineral Oil/Petrolatum, White Ophth Oint 3.5 Gm OU Q4HR PRN Dry Eye(s) Ondansetron HCl 4 mg 01/25/21 11:56 01/25/21 12:55 Ondansetron 4 Mg/2 Ml Inj IV 4 mg Q4H PRN Administration Nausea And Vomiting Scopolamine 1 each 01/15/21 11:00 01/27/21 10:10 Scopolamine Transdermal Patch 72 Hr TD 1 each Q3D THOMAS Administration Sodium Chloride 10 ml 12/22/20 22:00 01/26/21 22:02 Sodium Chloride 0.9% 10 Ml Flush Syringe IV 10 ml BID THOMAS Administration Sodium Chloride 10 ml 12/22/20 19:42 01/09/21 17:27 Sodium Chloride 0.9% 10 Ml Flush Syringe IV 10 ml PRN PRN Administration LINE FLUSH Nutrition/Malnutrition Assess - Dietary Evaluation Nutrition/Malnutrition Findings: Nutrition Notes Start: 12/24/20 12:36 Freq: Status: Active Protocol: Document 01/27/21 07:48 MK (Rec: 01/27/21 07:50 MK [id number]) Nutrition Notes Initial or Follow up Reassessment Current Diagnosis CKD (stage V CKD),Sepsis, Hypertension,Heart Failure, Small Bowel Obstruction Other Pertinent Diagnosis Peritonitis, SBO s/p resection Current Diet CPN at 84 ml/hr Labs/Tests Reviewed Pertinent Medications 6/3: Mg Sulfate 3 gram Height 5 ft 7 in Weight 80 kg Rowe Body Weight (kg) 67.27 BMI 27.6 Weight Status Overweight Subjective/Other Information TPN day 33. Pt remains unstable for discharge. Percent of energy/protein needs met: 100%/100% Burn Absent Trauma Absent Current % PO Negligible Minimum of two criteria No #2 Nutrition Diagnosis Increased nutrient needs ( specify in comment below) Diagnosis Progress(for reassessment Continues documentation) #1 Nutrition Diagnosis Inadequate oral intake Diagnosis Progress(for reassessment Continues documentation) Is patient on ventilator? No Is Patient Ambulatory and/or Out of Bed No REE-([facility]-confined to bed) 1875.348 Kcal/Kg value to use for calculation 21 Approximate Energy Requirements Using 1680 kcal/Kg Calculation Used for Recommendations Kcal/kg Additional Notes Pro needs: 101-121 g/day (1.25 -1.5 g/kg AdjBW, 81kg) Fluid needs per MD. Nutrition Intervention Change Diet Order: Continue CPN Nutrition Support: Continous CPN at 84 ml/hr: MVI, Lipids Kcal 2,174 Protein (gm) 121 Carbohydrates (gm) 350 Fat (gm) 50 Fluid (mL) 2,016 Fiber (gm) 0 Goal #1 Meet at least 75% of estimated energy and protein needs via CPN Anticipated Discharge Needs: continuous TPN at 84ml/hr Follow-Up By: 01/28/21 Additional Comments FU for TPN
--- NOTE | 2021-01-27 11:19 | Progress Note ---
Assessment and Plan POD#34 s/p ex lap with extensive lysis of adhesions and two small bowel resections with primary anastamosis for SBO with necrotic segment small bowel. POD#25 s/p ex lap, resection of perforated anastamosis, washout and abthera wound vac placement. POD#23 s/p ex lap with right hemicolectomy. POD#21 s/p ex lap, with jejunal-colonic anastamosis and closure of abdomen. Afebrile and stable. - concerned about a leak at his anastamosis. Clinically improved with decreased output that is becoming more serous. Blood supply was evaluated at time of last surgery with ICG and found to be adequate. Pt was on several days of steroids for tongue swelling which may have contributed to leak. Currently since he is stable and afebrile will treat like controlled fistua. He is extremely high risk for additional surgery with tissues that are extremely friable and previous scar tissue that makes his anatomy very difficult to manipulate. If he requires operative intervention will likely need to be left in discontinuity and eventual ileostomy as he has already failed two anastamoses. Continue HARIS drain suction. Will maintain LIWS to NGT and monitor output. HARIS drain must be secured and kept in place. Since HARIS drain has continued to decrease over the last several days, will continue q 8h ocreotide. No additional changes in management at time. Need to ensure drain is protected during movements. Prognosis is gaurded. Subjective Date of service: 01/27/21 Patient Reports: Positive: no new complaints (no acute events. ) Objective Vital Signs - 12hr 01/27/21 01/27/21 01/27/21 00:00 01:00 02:00 Temperature 98.6 F Pulse Rate 80 83 85 Pulse Rate [ From Monitor] Respiratory 18 16 19 Rate Blood Pressure 132/82 147/79 143/77 O2 Sat by Pulse 95 94 96 Oximetry 01/27/21 01/27/21 01/27/21 02:11 03:00 03:20 Temperature 98.7 F Pulse Rate 81 77 Pulse Rate [ From Monitor] Respiratory 15 Rate Blood Pressure 143/77 140/73 O2 Sat by Pulse 92 Oximetry 01/27/21 01/27/21 01/27/21 03:55 04:00 05:01 Temperature Pulse Rate 81 74 74 Pulse Rate [ 74 From Monitor] Respiratory 16 15 Rate Blood Pressure 146/74 145/79 O2 Sat by Pulse 94 96 Oximetry 01/27/21 01/27/21 01/27/21 06:37 07:00 10:11 Temperature 99.0 F Pulse Rate 85 75 Pulse Rate [ From Monitor] Respiratory Rate Blood Pressure 156/75 155/82 O2 Sat by Pulse Oximetry - General physical appearance well developed, no distress, no pain - Respiratory normal expansion, normal respiratory effort - Abdomen soft, not tender, other (HARIS drain bilious with 10cc recorded last 24 hours) - Labs 01/27/21 04:19 01/27/21 04:19 Diabetes panel 01/27/21 Range/Units 04:19 Sodium 139 (137-145) mmol/L Potassium 3.6 (3.6-5.0) mmol/L Chloride 97.9 L (98-107) mmol/L Carbon Dioxide 24 (22-30) mmol/L BUN 76 H (9-20) mg/dL Creatinine 9.9 H (0.8-1.3) mg/dL Glucose 111 H (75-100) mg/dL Calcium 8.9 (8.4-10.2) mg/dL Calcium panel 01/27/21 Range/Units 04:19 Calcium 8.9 (8.4-10.2) mg/dL Pituitary panel 01/27/21 Range/Units 04:19 Sodium 139 (137-145) mmol/L Potassium 3.6 (3.6-5.0) mmol/L Chloride 97.9 L (98-107) mmol/L Carbon Dioxide 24 (22-30) mmol/L BUN 76 H (9-20) mg/dL Creatinine 9.9 H (0.8-1.3) mg/dL Glucose 111 H (75-100) mg/dL Calcium 8.9 (8.4-10.2) mg/dL Adrenal panel 01/27/21 Range/Units 04:19 Sodium 139 (137-145) mmol/L Potassium 3.6 (3.6-5.0) mmol/L Chloride 97.9 L (98-107) mmol/L Carbon Dioxide 24 (22-30) mmol/L BUN 76 H (9-20) mg/dL Creatinine 9.9 H (0.8-1.3) mg/dL Glucose 111 H (75-100) mg/dL Calcium 8.9 (8.4-10.2) mg/dL
[2021-01-27] MEDS: DIGOXIN 0.5 MG/2 ML INJ IV SCH (11:32)
--- NOTE | 2021-01-27 11:52 | Progress Note ---
Assessment and Plan - Patient Problems (1) Atrial fibrillation Current Visit: Yes Status: Acute (2) Accelerated hypertension Current Visit: No Status: Acute Subjective Date of service: 01/27/21 Principal diagnosis: Ac hypoxemic resp failure; Severe Sepsis; Peritonitis; Acute SBO; ESRD; CHF Interval history: ,,,NO CV C/O Objective Vital Signs Temp Pulse Pulse Resp BP Pulse Ox 01/27/21 11:00 97.9 F 71 17 150/82 96 01/27/21 10:11 75 155/82 01/27/21 10:00 76 20 155/82 96 01/27/21 09:00 73 24 149/76 96 01/27/21 08:00 76 18 151/82 97 01/27/21 07:00 99.0 F 73 24 145/77 95 01/27/21 06:37 85 156/75 01/27/21 06:00 83 19 156/75 93 01/27/21 05:01 74 15 145/79 96 01/27/21 04:00 74 74 16 146/74 94 01/27/21 03:55 81 01/27/21 03:20 98.7 F 01/27/21 03:00 77 15 140/73 92 01/27/21 02:11 81 143/77 01/27/21 02:00 85 19 143/77 96 01/27/21 01:00 83 16 147/79 94 01/27/21 00:00 98.6 F 80 18 132/82 95 01/26/21 23:00 75 20 136/78 95 01/26/21 22:00 78 143/72 94 01/26/21 21:59 79 145/72 01/26/21 21:00 84 145/72 92 01/26/21 20:15 80 01/26/21 20:00 79 79 18 144/71 95 01/26/21 19:52 98.6 F 01/26/21 19:01 86 16 143/75 94 01/26/21 18:03 84 20 157/80 98 01/26/21 18:00 88 20 157/80 94 01/26/21 16:00 98.2 F 82 79 16 147/80 96 01/26/21 14:00 83 17 150/76 99 01/26/21 12:01 82 21 149/77 95 01/26/21 12:00 86 79 16 96 - Physical Examination General: No Apparent Distress HEENT: Positive: PERRL Neck: Positive: neck supple Cardiac: Positive: Reg Rate and Rhythm Lungs: Positive: Decreased Breath Sounds Neuro: Positive: Grossly Intact Abdomen: Positive: Other (post op) Skin: Positive: Clear Extremities: Absent: edema - Labs and Meds CBC 01/27/21 Range/Units 04:19 WBC 12.4 H (4.5-11.0) K/mm3 RBC 2.79 L (3.65-5.03) M/mm3 Hgb 8.6 L (11.8-15.2) gm/dl Hct 25.1 L (35.5-45.6) % Plt Count 171 (140-440) K/mm3 Lymph # (Auto) 0.9 L (1.2-5.4) K/mm3 Reynolds # (Auto) 1.1 H (0.0-0.8) K/mm3 Eos # (Auto) 0.6 H (0.0-0.4) K/mm3 Baso # (Auto) 0.0 (0.0-0.1) K/mm3 Comprehensive Metabolic Panel 01/27/21 Range/Units 04:19 Sodium 139 (137-145) mmol/L Potassium 3.6 (3.6-5.0) mmol/L Chloride 97.9 L (98-107) mmol/L Carbon Dioxide 24 (22-30) mmol/L BUN 76 H (9-20) mg/dL Creatinine 9.9 H (0.8-1.3) mg/dL Glucose 111 H (75-100) mg/dL Calcium 8.9 (8.4-10.2) mg/dL - Allied health notes Allied health notes reviewed: nursing
--- NOTE | 2021-01-27 12:08 | Progress Note ---
Assessment and Plan Cultures: 12/22/2020 blood culture: Streptococcus bovis, Prevotella 12/22/2020 PD fluid culture: No growth 12/24/2020 tracheal aspirate culture: No growth 12/24/2020 blood culture: No growth 12/31/2020 sputum culture: No growth A/P: 60-year-old male with ESRD on PD, Crohn's disease, CHF, gastroesophageal reflux disease was admitted to the hospital with complaints of abdominal pain and fever: #Severe sepsis with shock: improved. Secondary to small bowel obstruction/necrotic bowel with associated peritonitis. Status post exploratory laparotomy on 12/23/2020 with extensive lysis, primary anastomosis, found to have necrotic segment of small bowel. #Small bowel obstruction/necrotic bowel: with concern for PD associated peritonitis: Nephrology and general surgery following. Status post exploratory laparotomy on 12/23/2020 with extensive lysis, primary anastomosis, found to have necrotic segment of small bowel. PD catheter remains in place. S/p ex lap, resection of perforated anastamosis, washout and abthera wound vac placement on 01/01. Repeat CT abdomen showed no new abscesses, noted small free fluid. S/p Exploratory laparotomy, Right hemicolectomy, Peritoneal lavage, Partial omentectomy, ABThera wound VAC placement on 01/03/2021. Complicated intra- abdominal situation per d/w Dr. Sanchez, plan to continue IV abx for now, has limited surgical options at this time. #Streptococcus bovis bacteremia and Prevotella bacteremia: secondary to above. TTE without obvious vegetations. Repeat blood cultures negative. #ESRD: Renally dose antibiotics. Used to be on PD. On HD. #Acute respiratory failure: improved. Recs: -completed Zosyn on 01/24/2021. Remains afebrile. ID will sign off. Please call with questions. Yesika Denny MD, FACP [facility] ([facility] O: [phone] F: [phone] Subjective Date of service: 01/27/21 Principal diagnosis: Ac hypoxemic resp failure; Severe Sepsis; Peritonitis; Acute SBO; ESRD; CHF Interval history: AFebrile. Denies any complaints. Objective - Exam Narrative Exam: Physical Exam: Constitutional: awake alert, calm Head, Ears, Nose: Normocephalic, atraumatic. External ears, nose normal. NG + Eyes: Conjunctivae/corneas clear. No icterus. No ptosis. Neck: supple Cardiovascular: S1, S2 + Respiratory: AE fair bilaterally GI: VAC +, bowel sounds +, drain + Musculoskeletal: No pedal edema, no cyanosis. Skin: No rash or abscess Hem/Lymphatic: No palpable cervical or supraclavicular nodes. No lymphangitis Psych: calm, no agitation Neurological: awake, alert, oriented. - Constitutional Vitals: Vital Signs Temp Pulse Resp BP Pulse Ox 97.9 F 71 17 150/82 96 01/27/21 11:00 01/27/21 11:00 01/27/21 11:00 01/27/21 11:00 01/27/21 11:00 Temperature -Last 24 Hours Temperature 97.9 F Temperature 99.0 F Temperature 98.7 F Temperature 98.6 F Temperature 98.6 F Temperature 98.2 F - Labs CBC & Chem 7: 01/27/21 04:19 01/27/21 04:19 Labs: Abnormal lab results 01/26/21 01/27/21 01/27/21 Range/Units 18:35 00:01 04:19 WBC 12.4 H (4.5-11.0) K/mm3 RBC 2.79 L (3.65-5.03) M/mm3 Hgb 8.6 L (11.8-15.2) gm/dl Hct 25.1 L (35.5-45.6) % RDW 16.1 H (13.2-15.2) % Lymph % (Auto) 7.5 L (13.4-35.0) % Hanson % (Auto) 9.3 H (0.0-7.3) % Eos % (Auto) 4.8 H (0.0-4.3) % Lymph # (Auto) 0.9 L (1.2-5.4) K/mm3 Hanson # (Auto) 1.1 H (0.0-0.8) K/mm3 Eos # (Auto) 0.6 H (0.0-0.4) K/mm3 Seg Neutrophils % 78.0 H (40.0-70.0) % Seg Neutrophils # 9.7 H (1.8-7.7) K/mm3 Chloride (98-107) mmol/L BUN (9-20) mg/dL Creatinine (0.8-1.3) mg/dL Glucose (75-100) mg/dL POC Glucose 127 H 130 H (70-105) mg/dL 01/27/21 01/27/21 Range/Units 04:19 05:25 WBC (4.5-11.0) K/mm3 RBC (3.65-5.03) M/mm3 Hgb (11.8-15.2) gm/dl Hct (35.5-45.6) % RDW (13.2-15.2) % Lymph % (Auto) (13.4-35.0) % Hanson % (Auto) (0.0-7.3) % Eos % (Auto) (0.0-4.3) % Lymph # (Auto) (1.2-5.4) K/mm3 Hanson # (Auto) (0.0-0.8) K/mm3 Eos # (Auto) (0.0-0.4) K/mm3 Seg Neutrophils % (40.0-70.0) % Seg Neutrophils # (1.8-7.7) K/mm3 Chloride 97.9 L (98-107) mmol/L BUN 76 H (9-20) mg/dL Creatinine 9.9 H (0.8-1.3) mg/dL Glucose 111 H (75-100) mg/dL POC Glucose 129 H (70-105) mg/dL
--- NOTE | 2021-01-27 12:19 | Progress Note ---
Assessment and Plan Assessment: * ESRD previouasly on peritoneal dialysis; now on back up HD (on peritoneal dialysis for 2 years) * Small bowel obstruction --s/p ex-lap with jejuno-ileal anastamosis --s/p ex lap with extensive lysis of adhesions and two small bowel resections with primary anastamosis for SBO with necrotic segment small bowel. --s/p ex lap, resection of perforated anastamosis, washout and abthera wound vac placement. --s/p ex lap with right hemicolectomy. * Acute respiratory failure * Septic shock - resolved * Bacteremia - resolved * Hyperkalemia * Anemia of ESRD * Atrial fibrilation, new onset * Post op ileus Plan: * Continue HD MWF via left IJ permcath (12/27) * 3K bath with dialysis * UF as tolerated * Epogen 10k units w/ dialysis * Rate control per cardiology * Abx per primary team/ID * Nutrition per primary team * Maintatin MAP >65 * Surgery notes appreciated * He will also require outpatient hemodialysis chair prior to discharge * His BUN is much improved. Most likely due to catabolic state. Continue 4- hour of dialysis Subjective Date of service: 01/27/21 Principal diagnosis: Ac hypoxemic resp failure; Severe Sepsis; Peritonitis; Acute SBO; ESRD; CHF Interval history: Patient is clinically about the same. Remains on TPN. NG tube in place. Objective - Vital Signs Vital signs: Vital Signs - 12hr 01/27/21 01/27/21 01/27/21 01:00 02:00 02:11 Temperature Pulse Rate 83 85 81 Pulse Rate [ From Monitor] Respiratory 16 19 Rate Blood Pressure 147/79 143/77 143/77 O2 Sat by Pulse 94 96 Oximetry 01/27/21 01/27/21 01/27/21 03:00 03:20 03:55 Temperature 98.7 F Pulse Rate 77 81 Pulse Rate [ From Monitor] Respiratory 15 Rate Blood Pressure 140/73 O2 Sat by Pulse 92 Oximetry 01/27/21 01/27/21 01/27/21 04:00 05:01 06:00 Temperature Pulse Rate 74 74 83 Pulse Rate [ 74 From Monitor] Respiratory 16 15 19 Rate Blood Pressure 146/74 145/79 156/75 O2 Sat by Pulse 94 96 93 Oximetry 01/27/21 01/27/21 01/27/21 06:37 07:00 08:00 Temperature 99.0 F Pulse Rate 85 73 76 Pulse Rate [ From Monitor] Respiratory 24 18 Rate Blood Pressure 156/75 145/77 151/82 O2 Sat by Pulse 95 97 Oximetry 01/27/21 01/27/21 01/27/21 09:00 10:00 10:11 Temperature Pulse Rate 73 76 75 Pulse Rate [ From Monitor] Respiratory 24 20 Rate Blood Pressure 149/76 155/82 155/82 O2 Sat by Pulse 96 96 Oximetry 01/27/21 11:00 Temperature 97.9 F Pulse Rate 71 Pulse Rate [ From Monitor] Respiratory 17 Rate Blood Pressure 150/82 O2 Sat by Pulse 96 Oximetry - General Appearance General appearance: well-developed, well-nourished, appears stated age EENT: PERRL, mucous membranes moist Neck: no JVD, no thyromegaly, no carotid bruit, supple, other (Left IJ PermCath in place) Respiratory: Present: Clear to Ascultation Cardiology: regular, normal heart rate Gastrointestinal: other (Midline incision noted with wound VAC in place. Drain noted in right flank) Integumentary: other (No edema) - Lab 01/27/21 04:19 01/27/21 04:19 Most recent lab results ABG pH 7.345 pH Units (7.350-7.450) L 01/07/21 17:14 ABG pCO2 40.3 mm Hg 01/07/21 17:14 ABG pO2 67.4 mm Hg (80.0-90.0) L 01/07/21 17:14 ABG HCO3 21.5 mmol/L (20.0-26.0) 01/07/21 17:14 ABG O2 Saturation 94.3 % (95.0-99.0) L 01/07/21 17:14 Calcium 8.9 mg/dL (8.4-10.2) 01/27/21 04:19 Phosphorus 2.60 mg/dL (2.5-4.5) 01/23/21 05:45 Magnesium 2.30 mg/dL (1.7-2.3) 01/27/21 04:19 Medications & Allergies - Medications Allergies/Adverse Reactions: Allergies No Known Allergies Allergy (Verified 06/09/20 15:27) Home Medications: Home Medications Medication Instructions Recorded Confirmed Last Taken Type Albuterol Mdi (or & Nicu Only) 2 puff IH QID PRN #1 inhalation 04/01/17 11/01/20 10/31/20 09:00 Rx [ProAir HFA Inhaler] Calcium Acetate 667 mg PO DAILY 04/20/20 11/01/20 10/31/20 09:00 History Centrum Men's Tablet 1 tab PO DAILY 04/20/20 11/01/20 10/31/20 09:00 History Cinacalcet 30 mg PO DAILY 04/20/20 11/01/20 10/31/20 09:00 History Dialyvite with Zinc Tablet 1 tab PO DAILY 04/20/20 11/01/20 10/31/20 09:00 History Magnesium 250 mg PO BID 04/20/20 11/01/20 10/31/20 17:00 History Triamcinolone 0.1% 1 1000units TRANSDERMA DAILY 04/20/20 11/01/20 10/31/20 09:00 History Vit B12/Folic Acid/B6/Aa No.15 1,000 mg PO DAILY 04/20/20 11/01/20 10/31/20 09:00 History amLODIPine 10 mg PO DAILY 06/09/20 11/01/20 10/31/20 09:00 History AtorvaSTATin 40 mg PO HS 11/01/20 11/01/20 10/31/20 21:00 History Benadryl 25 mg PO HS 11/01/20 11/01/20 10/31/20 21:00 History Diclofenac 1 TRANSDERMA QID 11/01/20 10/31/20 19:00 History Fluticasone Propionate 1 spray INTRANASAL DAILY 11/01/20 11/01/20 10/31/20 09:00 History Vitamin D3 2,000 units 11/01/20 10/31/20 09:00 History carvediloL 12.5 mg PO DAILY 11/01/20 11/01/20 10/31/20 09:00 History hydrALAZINE 100 mg PO TID 11/01/20 11/01/20 10/31/20 19:00 History Active Medications: Generic Name Dose Route Start Last Admin Trade Name Freq PRN Reason Stop Dose Admin Acetaminophen 650 mg 12/31/20 15:30 01/21/21 05:28 Acetaminophen 650 Mg Rect Supp IA 650 mg Q6H PRN Administration Non Cardiac Pain or Temp>100.5 Clonidine HCl 0.2 mg 01/11/21 10:00 01/25/21 09:42 Clonidine Tts 0.2 Mg/24 Hr Patch TD 0.2 mg We THOMAS Administration Dextrose 50 ml 01/14/21 17:59 01/18/21 15:10 Dextrose 50% In Water (25gm) 50 Ml Syringe IV 20 ml Q30MIN PRN Administration Hypoglycemia Protocol Digoxin 0.125 mg 01/09/21 12:00 01/27/21 11:32 Digoxin 0.5 Mg/2 Ml Inj IV 0.125 mg Q48H THOMAS Administration Diphenhydramine HCl 50 mg 01/20/21 10:10 01/24/21 02:21 Diphenhydramine 50 Mg/Ml Vial IV 50 mg Q6H PRN Administration Itching Famotidine 10 mg 12/24/20 13:00 01/27/21 10:10 Famotidine 20 Mg/2 Ml Inj IV 10 mg BID THOMAS Administration Haloperidol Lactate 5 mg 12/29/20 14:16 01/22/21 23:56 Haloperidol Lactate 5 Mg/1 Ml Inj IV 5 mg Q12H PRN Administration Agitation Heparin Sodium (Porcine) 5,000 unit 12/24/20 10:00 01/27/21 10:11 Heparin 5,000 Unit/1 Ml Vial SUB-Q 5,000 unit Q12HR THOMAS Administration Hydralazine HCl 10 mg 01/10/21 14:00 01/27/21 10:11 Hydralazine 20 Mg/1 Ml Inj IV 10 mg Q4HR THOMAS Administration Hydromorphone HCl 0.25 mg 01/09/21 10:53 01/25/21 19:52 Hydromorphone 1 Mg/1 Ml Inj IV 0.25 mg Q6H PRN Administration Pain , Severe (7-10) Hydrophilic Ointment 1 applic 12/31/20 06:39 01/11/21 21:28 Lip Therapy Vaseline TP 1 applic Q2HR PRN Administration Dry Lips Sodium Chloride 100 mls @ 999 mls/hr 01/19/21 09:30 Nacl 0.9% IV RYLAND PRN Hypotension Octreotide Acetate 100 mcg/ 101 mls @ 200 mls/hr 01/21/21 15:00 01/27/21 07:29 Sodium Chloride IV 200 mls/hr Q8H THOMAS Administration Amino Acids/Electrolytes/Dextrose 2,016 mls @ 84 mls/hr 01/26/21 20:00 20:58 Tpn Adult IV 01/27/21 19:59 84 mls/hr DAILY@1999 [facility] Administration Protocol Amino Acids/Electrolytes/Dextrose 2,016 mls @ 84 mls/hr 01/27/21 20:00 Tpn Adult IV 01/28/21 19:59 DAILY@1999 [facility] Protocol Fat Emulsion Intravenous 250 mls @ 21 mls/hr 01/27/21 20:00 Intralipid 20% IV 01/28/21 08:00 DAILY@1999 [facility] Insulin Glargine 5 units 01/18/21 22:00 01/26/21 22:01 Insulin Glargine 100 Units/Ml SUB-Q 5 units QHS [facility] Administration Insulin Human Lispro 0 unit 01/03/21 12:00 01/27/21 11:31 Insulin Lispro 100 Unit/Ml SUB-Q Not Given Q6HR [facility] Protocol Metoprolol Tartrate 5 mg 12/30/20 12:00 01/27/21 10:11 Metoprolol Tartrate 5 Mg/5 Ml Inj IV 5 mg Q4HR [facility] Administration Multi-Ingred Cream/Lotion/Oil/Oint 1 applic 12/31/20 06:39 Mineral Oil/Petrolatum, White Ophth Oint 3.5 Gm OU Q4HR PRN Dry Eye(s) Ondansetron HCl 4 mg 01/25/21 11:56 01/25/21 12:55 Ondansetron 4 Mg/2 Ml Inj IV 4 mg Q4H PRN Administration Nausea And Vomiting Scopolamine 1 each 01/15/21 11:00 01/27/21 10:10 Scopolamine Transdermal Patch 72 Hr TD 1 each Q3D THOMAS Administration Sodium Chloride 10 ml 12/22/20 22:00 01/27/21 10:12 Sodium Chloride 0.9% 10 Ml Flush Syringe IV 10 ml BID THOMAS Administration Sodium Chloride 10 ml 12/22/20 19:42 01/09/21 17:27 Sodium Chloride 0.9% 10 Ml Flush Syringe IV 10 ml PRN PRN Administration LINE FLUSH
--- NOTE | 2021-01-27 13:46 | Progress Note ---
Assessment and Plan Acute hypoxemic respiratory failure, on mechanical ventilatory support. Severe Sepsis Peritonitis Acute small-bowel obstruction with tissue necrosis. End-stage renal disease, on dialysis. Hypertension. Crohn's disease. Gastroesophageal reflux disease. Heart failure with reduced ejection fraction. Hyperkalemia. Anemia that is normocytic. Lactic acidosis. Oropharyngeal dysphagia - no new issues today, continue care as below; - continue octreotide - follow clinically for S&S of infection re: fevers / WBC - continue total parenteral nutrition - continue wound care per RN/WCN - continue to wean supplemental oxygen for target O2 sat's > 92% acutely - aspiration precautions - continue bronchodilators with pulmonary hygiene per RT - wean per pulmonary driven protocols otherwise - HD/UF per nephrology prescription for toxin and volume control - avoid nephrotoxins, renally dose all medications - continue accuchecks with glycemic control per SSI for target blood glucose of <180 mg/dL; avoid hypoglycemia - continue to avoid benzodiazepine's, reduce the possibility of delirium - AB's per ID rec's - prn analgesia per pain score - Maintenance of sleep-wake cycle, avoid delirium - G.I. & VTE prophylaxis - PT/OT/ROM exercises - continue mobility protocols for pressure ulcer prophylaxis - Monitor hemodynamics closely - continue other care per attending / other consultants - discharge planning ongoing concurrently .... Re-evaluate in am & prn Subjective Date of service: 01/27/21 Principal diagnosis: Ac hypoxemic resp failure; Severe Sepsis; Peritonitis; Acute SBO; ESRD; CHF Interval history: Patient is seen today for: Ac hypoxemic resp failure; Severe Sepsis; Peritonitis; Acute SBO; ESRD on Dialysis; HTN; Crohn's disease; HFrEF Seen and examined at bedside; 24hour events reviewed; nursing and respiratory care staff consulted; no adverse overnight events reported to me; resting in bed; now on room air; denies N/V/F/C; denies chest pain; thirsty Objective Vital Signs - 12hr 01/27/21 01/27/21 01/27/21 02:00 02:11 03:00 Temperature Pulse Rate 85 81 77 Pulse Rate [ From Monitor] Respiratory 19 15 Rate Blood Pressure 143/77 143/77 140/73 O2 Sat by Pulse 96 92 Oximetry 01/27/21 01/27/21 01/27/21 03:20 03:55 04:00 Temperature 98.7 F Pulse Rate 81 74 Pulse Rate [ 74 From Monitor] Respiratory 16 Rate Blood Pressure 146/74 O2 Sat by Pulse 94 Oximetry 01/27/21 01/27/21 01/27/21 05:01 06:00 06:37 Temperature Pulse Rate 74 83 85 Pulse Rate [ From Monitor] Respiratory 15 19 Rate Blood Pressure 145/79 156/75 156/75 O2 Sat by Pulse 96 93 Oximetry 01/27/21 01/27/21 01/27/21 07:00 08:00 09:00 Temperature 99.0 F Pulse Rate 73 76 73 Pulse Rate [ From Monitor] Respiratory 24 18 24 Rate Blood Pressure 145/77 151/82 149/76 O2 Sat by Pulse 95 97 96 Oximetry 01/27/21 01/27/21 01/27/21 10:00 10:11 11:00 Temperature 97.9 F Pulse Rate 76 75 71 Pulse Rate [ From Monitor] Respiratory 20 17 Rate Blood Pressure 155/82 155/82 150/82 O2 Sat by Pulse 96 96 Oximetry Constitutional: no acute distress, alert, other (elderly male with normal respiratory effort at rest) Eyes: non-icteric ENT: oropharynx dry, oropharyngeal exudate pre Neck: supple, no lymphadenopathy, no JVD Effort: normal Ascultation: Bilateral: clear Percussion: Bilateral: not dull Cardiovascular: regular rate and rhythm, other (S1,S2) Gastrointestinal: hypoactive bowel sounds, soft, non-tender, non-distended (protuberant), other (Midline abdominal incision ) Integumentary: other (Midline abdominal incision ) Extremities: no cyanosis, no edema, pulses normal, no ischemia or petechiae Neurologic: non-focal exam (grossly), pupils equal and round, CN II-XII normal Psychiatric: mood appropriate, affect normal CBC and BMP: 01/27/21 04:19 01/27/21 04:19 ABG, PT/INR, D-dimer: ABG ABG pH 7.345 pH Units (7.350-7.450) L 01/07/21 17:14 POC ABG pCO2 41.4 mmHg (32.0-48.0) 01/07/21 03:07 ABG pCO2 40.3 mm Hg 01/07/21 17:14 POC ABG pO2 94.5 mmHg (83-108) 01/07/21 03:07 ABG pO2 67.4 mm Hg (80.0-90.0) L 01/07/21 17:14 POC ABG HCO3 22.7 01/07/21 03:07 ABG O2 Saturation 94.3 % (95.0-99.0) L 01/07/21 17:14 PT/INR, D-dimer PT 16.9 Sec. (12.2-14.9) H 01/01/21 12:45 INR 1.39 (0.87-1.13) H 01/01/21 12:45 Abnormal lab findings: Abnormal Labs 12/22/20 12/22/20 12/22/20 14:38 14:38 14:38 WBC RBC Hgb 11.2 L Hct 35.0 L MCV MCHC RDW 16.7 H Plt Count Lymph % (Auto) [place] % (Auto) Eos % (Auto) Lymph # (Auto) [place] # (Auto) Eos # (Auto) Seg Neutrophils % Seg Neuts % (Manual) 94.0 H Lymphocytes % (Manual) 5.0 L Monocytes % (Manual) Seg Neutrophils # Seg Neutrophils # Man Lymphocytes # (Manual) 0.3 L Monocytes # (Manual) PT INR ABG pH POC ABG pCO2 POC ABG pO2 ABG pO2 ABG HCO3 ABG O2 Saturation ABG Base Excess ABG Hemoglobin ABG Oxyhemoglobin ABG Sodium ABG Potassium ABG Chloride ABG Glucose Oxyhemoglobin Sodium Potassium Chloride Carbon Dioxide BUN 58 H Creatinine 13.2 H Glucose 113 H POC Glucose Lactic Acid 3.60 H* Calcium Phosphorus Magnesium Total Bilirubin 1.30 H AST ALT Alkaline Phosphatase 155 H Total Protein Albumin Triglycerides Arterial Blood Glucose Arterial Blood Ionized Calcium Digoxin Crossmatch 12/22/20 12/22/20 12/23/20 16:26 17:47 05:22 WBC RBC Hgb Hct MCV MCHC RDW Plt Count Lymph % (Auto) [place] % (Auto) Eos % (Auto) Lymph # (Auto) [place] # (Auto) Eos # (Auto) Seg Neutrophils % Seg Neuts % (Manual) Lymphocytes % (Manual) Monocytes % (Manual) Seg Neutrophils # Seg Neutrophils # Man Lymphocytes # (Manual) Monocytes # (Manual) PT INR ABG pH POC ABG pCO2 POC ABG pO2 ABG pO2 ABG HCO3 ABG O2 Saturation ABG Base Excess ABG Hemoglobin ABG Oxyhemoglobin ABG Sodium ABG Potassium ABG Chloride ABG Glucose Oxyhemoglobin Sodium Potassium Chloride Carbon Dioxide BUN Creatinine Glucose POC Glucose Lactic Acid 2.80 H* 3.10 H* 2.30 H* Calcium Phosphorus Magnesium Total Bilirubin AST ALT Alkaline Phosphatase Total Protein Albumin Triglycerides Arterial Blood Glucose Arterial Blood Ionized Calcium Digoxin Crossmatch 12/23/20 12/23/20 12/23/20 05:22 05:22 06:35 WBC 12.1 H RBC Hgb 11.0 L Hct 33.7 L MCV MCHC RDW 16.9 H Plt Count Lymph % (Auto) [place] % (Auto) Eos % (Auto) Lymph # (Auto) [place] # (Auto) Eos # (Auto) Seg Neutrophils % Seg Neuts % (Manual) 93.0 H Lymphocytes % (Manual) 1.0 L Monocytes % (Manual) Seg Neutrophils # Seg Neutrophils # Man 11.3 H Lymphocytes # (Manual) 0.1 L Monocytes # (Manual) PT INR ABG pH POC ABG pCO2 POC ABG pO2 ABG pO2 ABG HCO3 ABG O2 Saturation ABG Base Excess ABG Hemoglobin ABG Oxyhemoglobin ABG Sodium ABG Potassium ABG Chloride ABG Glucose Oxyhemoglobin Sodium Potassium 5.7 H D Chloride Carbon Dioxide BUN 73 H Creatinine 14.2 H Glucose POC Glucose Lactic Acid 2.30 H* Calcium 7.9 L Phosphorus Magnesium Total Bilirubin 1.40 H AST 119 H ALT 130 H Alkaline Phosphatase 183 H Total Protein 6.1 L Albumin 3.6 L Triglycerides Arterial Blood Glucose Arterial Blood Ionized Calcium Digoxin Crossmatch 12/23/20 12/23/20 12/23/20 11:40 13:53 16:47 WBC RBC Hgb 10.0 L Hct 30.4 L MCV MCHC RDW Plt Count Lymph % (Auto) [place] % (Auto) Eos % (Auto) Lymph # (Auto) [place] # (Auto) Eos # (Auto) Seg Neutrophils % Seg Neuts % (Manual) Lymphocytes % (Manual) Monocytes % (Manual) Seg Neutrophils # Seg Neutrophils # Man Lymphocytes # (Manual) Monocytes # (Manual) PT INR ABG pH POC ABG pCO2 POC ABG pO2 137.5 H ABG pO2 ABG HCO3 ABG O2 Saturation ABG Base Excess ABG Hemoglobin 9.7 L ABG Oxyhemoglobin ABG Sodium 134.1 L ABG Potassium 6.6 H ABG Chloride ABG Glucose 103 H Oxyhemoglobin Sodium Potassium Chloride Carbon Dioxide BUN Creatinine Glucose POC Glucose Lactic Acid Calcium Phosphorus Magnesium Total Bilirubin AST ALT Alkaline Phosphatase Total Protein Albumin Triglycerides Arterial Blood Glucose 103 H Arterial Blood Ionized Calcium 3.8 L Digoxin Crossmatch See Detail 12/23/20 12/23/20 12/24/20 20:35 20:40 01:20 WBC RBC Hgb Hct MCV MCHC RDW Plt Count Lymph % (Auto) [place] % (Auto) Eos % (Auto) Lymph # (Auto) [place] # (Auto) Eos # (Auto) Seg Neutrophils % Seg Neuts % (Manual) Lymphocytes % (Manual) Monocytes % (Manual) Seg Neutrophils # Seg Neutrophils # Man Lymphocytes # (Manual) Monocytes # (Manual) PT INR ABG pH 7.252 L POC ABG pCO2 POC ABG pO2 ABG pO2 50.1 L ABG HCO3 ABG O2 Saturation 81.1 L ABG Base Excess -5.9 L ABG Hemoglobin 12.1 L ABG Oxyhemoglobin ABG Sodium ABG Potassium ABG Chloride ABG Glucose Oxyhemoglobin 78.6 L Sodium 134 L Potassium 6.9 H* D 6.3 H* Chloride Carbon Dioxide 18 L 20 L BUN 87 H 91 H Creatinine 15.3 H 15.3 H Glucose 103 H POC Glucose Lactic Acid Calcium 6.9 L 7.5 L Phosphorus Magnesium Total Bilirubin AST ALT Alkaline Phosphatase Total Protein Albumin Triglycerides Arterial Blood Glucose Arterial Blood Ionized Calcium Digoxin Crossmatch 12/24/20 12/24/20 12/24/20 04:00 10:29 10:29 WBC RBC 3.49 L Hgb 10.5 L Hct 31.2 L MCV MCHC RDW 17.5 H Plt Count 124 L Lymph % (Auto) 3.7 L [place] % (Auto) 9.8 H Eos % (Auto) Lymph # (Auto) 0.2 L [place] # (Auto) Eos # (Auto) Seg Neutrophils % 85.9 H Seg Neuts % (Manual) Lymphocytes % (Manual) Monocytes % (Manual) Seg Neutrophils # Seg Neutrophils # Man Lymphocytes # (Manual) Monocytes # (Manual) PT INR ABG pH POC ABG pCO2 28.1 L POC ABG pO2 ABG pO2 ABG HCO3 ABG O2 Saturation ABG Base Excess ABG Hemoglobin ABG Oxyhemoglobin ABG Sodium 133.9 L ABG Potassium 5.3 H ABG Chloride 108.0 H ABG Glucose Oxyhemoglobin Sodium Potassium 5.6 H Chloride Carbon Dioxide 19 L BUN 99 H Creatinine 16.9 H Glucose 52 L POC Glucose Lactic Acid Calcium 7.6 L Phosphorus Magnesium Total Bilirubin 3.50 H AST 67 H ALT 71 H Alkaline Phosphatase Total Protein 3.5 L D Albumin 2.1 L Triglycerides Arterial Blood Glucose Arterial Blood Ionized Calcium 4.0 L Digoxin Crossmatch 12/25/20 12/25/20 12/25/20 03:33 04:00 04:00 WBC 3.8 L RBC 2.90 L Hgb 8.6 L Hct 25.7 L MCV MCHC RDW 16.7 H Plt Count 113 L Lymph % (Auto) [place] % (Auto) Eos % (Auto) Lymph # (Auto) [place] # (Auto) Eos # (Auto) Seg Neutrophils % Seg Neuts % (Manual) Lymphocytes % (Manual) Monocytes % (Manual) Seg Neutrophils # Seg Neutrophils # Man Lymphocytes # (Manual) Monocytes # (Manual) PT INR ABG pH 7.544 H POC ABG pCO2 28.2 L POC ABG pO2 62.8 L ABG pO2 ABG HCO3 ABG O2 Saturation ABG Base Excess ABG Hemoglobin 9.3 L ABG Oxyhemoglobin 93.0 L ABG Sodium 130.3 L ABG Potassium ABG Chloride ABG Glucose 97 H Oxyhemoglobin Sodium Potassium Chloride Carbon Dioxide BUN 62 H Creatinine 11.4 H Glucose POC Glucose Lactic Acid Calcium 7.7 L Phosphorus 5.00 H Magnesium Total Bilirubin AST ALT Alkaline Phosphatase Total Protein Albumin Triglycerides Arterial Blood Glucose 97 H Arterial Blood Ionized Calcium 3.9 L Digoxin Crossmatch 12/26/20 12/26/20 12/27/20 04:46 Unknown 03:40 WBC 4.1 L RBC 2.61 L Hgb 7.8 L Hct 23.4 L MCV MCHC RDW 17.1 H Plt Count 119 L Lymph % (Auto) 5.3 L [place] % (Auto) 10.6 H Eos % (Auto) Lymph # (Auto) 0.2 L [place] # (Auto) Eos # (Auto) Seg Neutrophils % 78.8 H Seg Neuts % (Manual) Lymphocytes % (Manual) Monocytes % (Manual) Seg Neutrophils # Seg Neutrophils # Man Lymphocytes # (Manual) Monocytes # (Manual) PT INR ABG pH 7.333 L 7.332 L POC ABG pCO2 POC ABG pO2 ABG pO2 ABG HCO3 26.9 H ABG O2 Saturation ABG Base Excess -2.4 L ABG Hemoglobin 6.8 L 7.2 L ABG Oxyhemoglobin ABG Sodium ABG Potassium ABG Chloride ABG Glucose Oxyhemoglobin 93.0 L 93.1 L Sodium Potassium Chloride Carbon Dioxide BUN Creatinine Glucose POC Glucose Lactic Acid Calcium Phosphorus Magnesium Total Bilirubin AST ALT Alkaline Phosphatase Total Protein Albumin Triglycerides Arterial Blood Glucose Arterial Blood Ionized Calcium Digoxin Crossmatch 12/27/20 12/27/20 12/27/20 06:40 06:40 11:22 WBC 4.4 L RBC 2.49 L Hgb 7.4 L Hct 22.4 L MCV MCHC RDW 17.1 H Plt Count 111 L Lymph % (Auto) 6.7 L [place] % (Auto) 12.6 H Eos % (Auto) Lymph # (Auto) 0.3 L [place] # (Auto) Eos # (Auto) Seg Neutrophils % 77.6 H Seg Neuts % (Manual) Lymphocytes % (Manual) Monocytes % (Manual) Seg Neutrophils # Seg Neutrophils # Man Lymphocytes # (Manual) Monocytes # (Manual) PT INR ABG pH POC ABG pCO2 POC ABG pO2 ABG pO2 ABG HCO3 ABG O2 Saturation ABG Base Excess ABG Hemoglobin ABG Oxyhemoglobin ABG Sodium ABG Potassium ABG Chloride ABG Glucose Oxyhemoglobin Sodium Potassium Chloride Carbon Dioxide BUN 64 H Creatinine 9.8 H Glucose 147 H POC Glucose 134 H Lactic Acid Calcium 8.3 L Phosphorus 5.00 H Magnesium Total Bilirubin 3.70 H AST 72 H ALT Alkaline Phosphatase 142 H Total Protein 5.1 L D Albumin 2.9 L Triglycerides Arterial Blood Glucose Arterial Blood Ionized Calcium Digoxin Crossmatch 12/27/20 12/27/20 12/28/20 17:29 23:31 03:09 WBC RBC Hgb Hct MCV MCHC RDW Plt Count Lymph % (Auto) [place] % (Auto) Eos % (Auto) Lymph # (Auto) [place] # (Auto) Eos # (Auto) Seg Neutrophils % Seg Neuts % (Manual) Lymphocytes % (Manual) Monocytes % (Manual) Seg Neutrophils # Seg Neutrophils # Man Lymphocytes # (Manual) Monocytes # (Manual) PT INR ABG pH 7.474 H POC ABG pCO2 POC ABG pO2 ABG pO2 ABG HCO3 ABG O2 Saturation ABG Base Excess ABG Hemoglobin 7.8 L ABG Oxyhemoglobin ABG Sodium ABG Potassium ABG Chloride ABG Glucose Oxyhemoglobin Sodium Potassium Chloride Carbon Dioxide BUN Creatinine Glucose POC Glucose 121 H 131 H Lactic Acid Calcium Phosphorus Magnesium Total Bilirubin AST ALT Alkaline Phosphatase Total Protein Albumin Triglycerides Arterial Blood Glucose Arterial Blood Ionized Calcium Digoxin Crossmatch 12/28/20 12/28/20 12/28/20 05:37 05:40 05:40 WBC 4.3 L RBC 2.40 L Hgb 7.2 L Hct 21.5 L MCV MCHC RDW 17.4 H Plt Count 112 L Lymph % (Auto) 6.5 L [place] % (Auto) 16.7 H Eos % (Auto) Lymph # (Auto) 0.3 L [place] # (Auto) Eos # (Auto) Seg Neutrophils % 71.1 H Seg Neuts % (Manual) Lymphocytes % (Manual) Monocytes % (Manual) Seg Neutrophils # Seg Neutrophils # Man Lymphocytes # (Manual) Monocytes # (Manual) PT INR ABG pH POC ABG pCO2 POC ABG pO2 ABG pO2 ABG HCO3 ABG O2 Saturation ABG Base Excess ABG Hemoglobin ABG Oxyhemoglobin ABG Sodium ABG Potassium ABG Chloride ABG Glucose Oxyhemoglobin Sodium Potassium Chloride Carbon Dioxide BUN 85 H Creatinine 11.5 H Glucose 132 H POC Glucose 121 H Lactic Acid Calcium 8.2 L Phosphorus Magnesium 2.40 H Total Bilirubin 3.80 H AST 70 H ALT Alkaline Phosphatase 176 H Total Protein 5.0 L Albumin 2.9 L Triglycerides Arterial Blood Glucose Arterial Blood Ionized Calcium Digoxin Crossmatch 12/28/20 12/28/20 12/28/20 11:34 15:00 17:35 WBC RBC Hgb Hct MCV MCHC RDW Plt Count Lymph % (Auto) [place] % (Auto) Eos % (Auto) Lymph # (Auto) [place] # (Auto) Eos # (Auto) Seg Neutrophils % Seg Neuts % (Manual) Lymphocytes % (Manual) Monocytes % (Manual) Seg Neutrophils # Seg Neutrophils # Man Lymphocytes # (Manual) Monocytes # (Manual) PT INR ABG pH 7.461 H POC ABG pCO2 POC ABG pO2 72.2 L ABG pO2 ABG HCO3 ABG O2 Saturation ABG Base Excess ABG Hemoglobin 8.2 L ABG Oxyhemoglobin 93.6 L ABG Sodium 134.1 L ABG Potassium 3.2 L ABG Chloride ABG Glucose 135 H Oxyhemoglobin Sodium Potassium Chloride Carbon Dioxide BUN Creatinine Glucose POC Glucose 137 H 144 H Lactic Acid Calcium Phosphorus Magnesium Total Bilirubin AST ALT Alkaline Phosphatase Total Protein Albumin Triglycerides Arterial Blood Glucose 135 H Arterial Blood Ionized Calcium 4.4 L Digoxin Crossmatch 12/28/20 12/28/20 12/29/20 19:44 Unknown 00:21 WBC RBC Hgb Hct MCV MCHC RDW Plt Count Lymph % (Auto) [place] % (Auto) Eos % (Auto) Lymph # (Auto) [place] # (Auto) Eos # (Auto) Seg Neutrophils % Seg Neuts % (Manual) Lymphocytes % (Manual) Monocytes % (Manual) Seg Neutrophils # Seg Neutrophils # Man Lymphocytes # (Manual) Monocytes # (Manual) PT INR ABG pH 7.474 H POC ABG pCO2 POC ABG pO2 ABG pO2 ABG HCO3 ABG O2 Saturation ABG Base Excess ABG Hemoglobin 7.8 L ABG Oxyhemoglobin ABG Sodium 133.2 L ABG Potassium ABG Chloride ABG Glucose 139 H Oxyhemoglobin Sodium 135 L Potassium Chloride 96.6 L Carbon Dioxide BUN 47 H Creatinine 7.4 H Glucose 130 H POC Glucose 142 H Lactic Acid Calcium 8.3 L Phosphorus Magnesium Total Bilirubin AST ALT Alkaline Phosphatase Total Protein Albumin Triglycerides Arterial Blood Glucose 139 H Arterial Blood Ionized Calcium 4.3 L Digoxin Crossmatch 12/29/20 12/29/20 12/29/20 05:16 05:16 05:26 WBC RBC 2.53 L Hgb 7.7 L Hct 22.8 L MCV MCHC RDW 17.0 H Plt Count 130 L Lymph % (Auto) [place] % (Auto) Eos % (Auto) Lymph # (Auto) [place] # (Auto) Eos # (Auto) Seg Neutrophils % Seg Neuts % (Manual) 79.0 H Lymphocytes % (Manual) 9.0 L Monocytes % (Manual) Seg Neutrophils # Seg Neutrophils # Man Lymphocytes # (Manual) 0.6 L Monocytes # (Manual) PT INR ABG pH POC ABG pCO2 POC ABG pO2 ABG pO2 ABG HCO3 ABG O2 Saturation ABG Base Excess ABG Hemoglobin ABG Oxyhemoglobin ABG Sodium ABG Potassium ABG Chloride ABG Glucose Oxyhemoglobin Sodium Potassium 3.4 L Chloride 96.6 L Carbon Dioxide BUN 59 H Creatinine 8.3 H Glucose 127 H POC Glucose 141 H Lactic Acid Calcium 8.2 L Phosphorus Magnesium Total Bilirubin 3.00 H AST 88 H ALT Alkaline Phosphatase 188 H Total Protein 5.1 L Albumin 2.8 L Triglycerides Arterial Blood Glucose Arterial Blood Ionized Calcium Digoxin Crossmatch 12/29/20 12/29/20 12/29/20 11:33 17:29 23:22 WBC RBC Hgb Hct MCV MCHC RDW Plt Count Lymph % (Auto) [place] % (Auto) Eos % (Auto) Lymph # (Auto) [place] # (Auto) Eos # (Auto) Seg Neutrophils % Seg Neuts % (Manual) Lymphocytes % (Manual) Monocytes % (Manual) Seg Neutrophils # Seg Neutrophils # Man Lymphocytes # (Manual) Monocytes # (Manual) PT INR ABG pH POC ABG pCO2 POC ABG pO2 ABG pO2 ABG HCO3 ABG O2 Saturation ABG Base Excess ABG Hemoglobin ABG Oxyhemoglobin ABG Sodium ABG Potassium ABG Chloride ABG Glucose Oxyhemoglobin Sodium Potassium Chloride Carbon Dioxide BUN Creatinine Glucose POC Glucose 144 H 130 H 117 H Lactic Acid Calcium Phosphorus Magnesium Total Bilirubin AST ALT Alkaline Phosphatase Total Protein Albumin Triglycerides Arterial Blood Glucose Arterial Blood Ionized Calcium Digoxin Crossmatch 12/30/20 12/30/20 12/30/20 05:23 08:15 09:00 WBC RBC Hgb Hct MCV MCHC RDW Plt Count Lymph % (Auto) [place] % (Auto) Eos % (Auto) Lymph # (Auto) [place] # (Auto) Eos # (Auto) Seg Neutrophils % Seg Neuts % (Manual) Lymphocytes % (Manual) Monocytes % (Manual) Seg Neutrophils # Seg Neutrophils # Man Lymphocytes # (Manual) Monocytes # (Manual) PT INR ABG pH POC ABG pCO2 POC ABG pO2 ABG pO2 ABG HCO3 ABG O2 Saturation ABG Base Excess ABG Hemoglobin ABG Oxyhemoglobin ABG Sodium ABG Potassium ABG Chloride ABG Glucose Oxyhemoglobin Sodium 135 L Potassium Chloride 95.9 L Carbon Dioxide BUN 85 H Creatinine 10.6 H Glucose 128 H POC Glucose 135 H 127 H Lactic Acid Calcium 8.3 L Phosphorus Magnesium Total Bilirubin 2.40 H AST 85 H ALT Alkaline Phosphatase 216 H Total Protein 5.3 L Albumin 2.6 L Triglycerides 155 H Arterial Blood Glucose Arterial Blood Ionized Calcium Digoxin Crossmatch 12/30/20 12/30/20 12/30/20 09:00 11:53 15:49 WBC RBC 2.61 L Hgb 7.8 L Hct 23.7 L MCV MCHC RDW 17.3 H Plt Count Lymph % (Auto) [place] % (Auto) Eos % (Auto) Lymph # (Auto) [place] # (Auto) Eos # (Auto) Seg Neutrophils % Seg Neuts % (Manual) Lymphocytes % (Manual) Monocytes % (Manual) Seg Neutrophils # Seg Neutrophils # Man Lymphocytes # (Manual) Monocytes # (Manual) PT INR ABG pH POC ABG pCO2 POC ABG pO2 ABG pO2 ABG HCO3 ABG O2 Saturation ABG Base Excess ABG Hemoglobin ABG Oxyhemoglobin ABG Sodium ABG Potassium ABG Chloride ABG Glucose Oxyhemoglobin Sodium Potassium Chloride Carbon Dioxide BUN Creatinine Glucose POC Glucose 155 H 146 H Lactic Acid Calcium Phosphorus Magnesium Total Bilirubin AST ALT Alkaline Phosphatase Total Protein Albumin Triglycerides Arterial Blood Glucose Arterial Blood Ionized Calcium Digoxin Crossmatch 12/30/20 12/30/20 12/31/20 17:53 23:45 03:56 WBC RBC Hgb Hct MCV MCHC RDW Plt Count Lymph % (Auto) [place] % (Auto) Eos % (Auto) Lymph # (Auto) [place] # (Auto) Eos # (Auto) Seg Neutrophils % Seg Neuts % (Manual) Lymphocytes % (Manual) Monocytes % (Manual) Seg Neutrophils # Seg Neutrophils # Man Lymphocytes # (Manual) Monocytes # (Manual) PT INR ABG pH POC ABG pCO2 POC ABG pO2 49.4 L ABG pO2 ABG HCO3 ABG O2 Saturation ABG Base Excess ABG Hemoglobin 10.3 L ABG Oxyhemoglobin 84.2 L ABG Sodium 133.1 L ABG Potassium ABG Chloride ABG Glucose 173 H Oxyhemoglobin Sodium Potassium Chloride Carbon Dioxide BUN Creatinine Glucose POC Glucose 139 H 173 H Lactic Acid Calcium Phosphorus Magnesium Total Bilirubin AST ALT Alkaline Phosphatase Total Protein Albumin Triglycerides Arterial Blood Glucose 173 H Arterial Blood Ionized Calcium Digoxin Crossmatch 12/31/20 12/31/20 12/31/20 05:07 06:51 06:51 WBC 20.3 H RBC 3.32 L Hgb 9.8 L Hct 30.3 L D MCV MCHC RDW 17.3 H Plt Count Lymph % (Auto) [place] % (Auto) Eos % (Auto) Lymph # (Auto) [place] # (Auto) Eos # (Auto) Seg Neutrophils % Seg Neuts % (Manual) 87.0 H Lymphocytes % (Manual) 10.0 L Monocytes % (Manual) Seg Neutrophils # Seg Neutrophils # Man 17.7 H Lymphocytes # (Manual) Monocytes # (Manual) PT INR ABG pH POC ABG pCO2 POC ABG pO2 ABG pO2 ABG HCO3 ABG O2 Saturation ABG Base Excess ABG Hemoglobin ABG Oxyhemoglobin ABG Sodium ABG Potassium ABG Chloride ABG Glucose Oxyhemoglobin Sodium Potassium 5.2 H D Chloride Carbon Dioxide BUN 62 H Creatinine 8.4 H Glucose 116 H POC Glucose 120 H Lactic Acid Calcium Phosphorus Magnesium 1.60 L Total Bilirubin AST ALT Alkaline Phosphatase Total Protein Albumin Triglycerides Arterial Blood Glucose Arterial Blood Ionized Calcium Digoxin Crossmatch 12/31/20 12/31/20 12/31/20 09:38 12:19 12:22 WBC RBC Hgb Hct MCV MCHC RDW Plt Count Lymph % (Auto) [place] % (Auto) Eos % (Auto) Lymph # (Auto) [place] # (Auto) Eos # (Auto) Seg Neutrophils % Seg Neuts % (Manual) Lymphocytes % (Manual) Monocytes % (Manual) Seg Neutrophils # Seg Neutrophils # Man Lymphocytes # (Manual) Monocytes # (Manual) PT INR ABG pH POC ABG pCO2 POC ABG pO2 ABG pO2 354.0 H ABG HCO3 ABG O2 Saturation 99.6 H ABG Base Excess ABG Hemoglobin 9.1 L ABG Oxyhemoglobin ABG Sodium ABG Potassium ABG Chloride ABG Glucose Oxyhemoglobin Sodium Potassium 5.2 H Chloride Carbon Dioxide BUN Creatinine Glucose POC Glucose 132 H Lactic Acid Calcium Phosphorus Magnesium Total Bilirubin AST ALT Alkaline Phosphatase Total Protein Albumin Triglycerides Arterial Blood Glucose Arterial Blood Ionized Calcium Digoxin Crossmatch 12/31/20 01/01/21 01/01/21 23:23 03:03 05:04 WBC RBC Hgb Hct MCV MCHC RDW Plt Count Lymph % (Auto) [place] % (Auto) Eos % (Auto) Lymph # (Auto) [place] # (Auto) Eos # (Auto) Seg Neutrophils % Seg Neuts % (Manual) Lymphocytes % (Manual) Monocytes % (Manual) Seg Neutrophils # Seg Neutrophils # Man Lymphocytes # (Manual) Monocytes # (Manual) PT INR ABG pH POC ABG pCO2 POC ABG pO2 79.6 L ABG pO2 ABG HCO3 ABG O2 Saturation ABG Base Excess ABG Hemoglobin 9.2 L ABG Oxyhemoglobin ABG Sodium 131.6 L ABG Potassium 5.8 H ABG Chloride ABG Glucose 177 H Oxyhemoglobin Sodium Potassium Chloride Carbon Dioxide BUN Creatinine Glucose POC Glucose 174 H 167 H Lactic Acid Calcium Phosphorus Magnesium Total Bilirubin AST ALT Alkaline Phosphatase Total Protein Albumin Triglycerides Arterial Blood Glucose 177 H Arterial Blood Ionized Calcium Digoxin Crossmatch 01/01/21 01/01/21 01/01/21 07:31 07:31 11:31 WBC 26.1 H RBC 2.95 L Hgb 8.6 L Hct 27.1 L MCV MCHC RDW 18.2 H Plt Count Lymph % (Auto) [place] % (Auto) Eos % (Auto) Lymph # (Auto) [place] # (Auto) Eos # (Auto) Seg Neutrophils % Seg Neuts % (Manual) 96.0 H Lymphocytes % (Manual) 4.0 L Monocytes % (Manual) Seg Neutrophils # Seg Neutrophils # Man 25.1 H Lymphocytes # (Manual) 1.0 L Monocytes # (Manual) PT INR ABG pH POC ABG pCO2 POC ABG pO2 ABG pO2 ABG HCO3 ABG O2 Saturation ABG Base Excess ABG Hemoglobin ABG Oxyhemoglobin ABG Sodium ABG Potassium ABG Chloride ABG Glucose Oxyhemoglobin Sodium Potassium 6.0 H Chloride Carbon Dioxide 21 L BUN 89 H Creatinine 10.5 H Glucose 179 H POC Glucose Lactic Acid Calcium Phosphorus Magnesium Total Bilirubin AST ALT Alkaline Phosphatase Total Protein Albumin Triglycerides Arterial Blood Glucose Arterial Blood Ionized Calcium Digoxin Crossmatch See Detail 01/01/21 01/01/21 01/01/21 11:51 12:45 16:52 WBC RBC Hgb Hct MCV MCHC RDW Plt Count Lymph % (Auto) Citrus % (Auto) Eos % (Auto) Lymph # (Auto) Citrus # (Auto) Eos # (Auto) Seg Neutrophils % Seg Neuts % (Manual) Lymphocytes % (Manual) Monocytes % (Manual) Seg Neutrophils # Seg Neutrophils # Man Lymphocytes # (Manual) Monocytes # (Manual) PT 16.9 H INR 1.39 H ABG pH POC ABG pCO2 POC ABG pO2 ABG pO2 ABG HCO3 ABG O2 Saturation ABG Base Excess ABG Hemoglobin ABG Oxyhemoglobin ABG Sodium ABG Potassium ABG Chloride ABG Glucose Oxyhemoglobin Sodium Potassium Chloride Carbon Dioxide BUN Creatinine Glucose POC Glucose 157 H 177 H Lactic Acid Calcium Phosphorus Magnesium Total Bilirubin AST ALT Alkaline Phosphatase Total Protein Albumin Triglycerides Arterial Blood Glucose Arterial Blood Ionized Calcium Digoxin Crossmatch 01/01/21 01/01/21 01/01/21 17:58 17:58 20:12 WBC 26.9 H RBC 3.14 L Hgb 9.3 L Hct 29.6 L MCV MCHC RDW 17.5 H Plt Count Lymph % (Auto) [place] % (Auto) Eos % (Auto) Lymph # (Auto) [place] # (Auto) Eos # (Auto) Seg Neutrophils % Seg Neuts % (Manual) 84.0 H Lymphocytes % (Manual) 4.0 L Monocytes % (Manual) 12.0 H Seg Neutrophils # Seg Neutrophils # Man 22.6 H Lymphocytes # (Manual) 1.1 L Monocytes # (Manual) 3.2 H PT INR ABG pH POC ABG pCO2 POC ABG pO2 ABG pO2 ABG HCO3 ABG O2 Saturation ABG Base Excess ABG Hemoglobin ABG Oxyhemoglobin ABG Sodium ABG Potassium ABG Chloride ABG Glucose Oxyhemoglobin Sodium 136 L Potassium 6.2 H* Chloride Carbon Dioxide 21 L BUN 92 H Creatinine 10.8 H Glucose 171 H POC Glucose 288 H Lactic Acid Calcium Phosphorus Magnesium Total Bilirubin 2.10 H AST 223 H ALT 100 H Alkaline Phosphatase 206 H Total Protein 4.8 L Albumin 1.9 L Triglycerides Arterial Blood Glucose Arterial Blood Ionized Calcium Digoxin Crossmatch 01/02/21 01/02/21 01/02/21 00:12 00:45 03:05 WBC RBC Hgb Hct MCV MCHC RDW Plt Count Lymph % (Auto) [place] % (Auto) Eos % (Auto) Lymph # (Auto) [place] # (Auto) Eos # (Auto) Seg Neutrophils % Seg Neuts % (Manual) Lymphocytes % (Manual) Monocytes % (Manual) Seg Neutrophils # Seg Neutrophils # Man Lymphocytes # (Manual) Monocytes # (Manual) PT INR ABG pH POC ABG pCO2 POC ABG pO2 81.8 L ABG pO2 ABG HCO3 ABG O2 Saturation ABG Base Excess ABG Hemoglobin 8.0 L ABG Oxyhemoglobin ABG Sodium 129.8 L ABG Potassium 5.4 H ABG Chloride ABG Glucose 257 H Oxyhemoglobin Sodium 136 L Potassium 5.8 H Chloride 96.6 L Carbon Dioxide BUN 95 H Creatinine 11.2 H Glucose 238 H POC Glucose 223 H Lactic Acid Calcium Phosphorus Magnesium Total Bilirubin AST ALT Alkaline Phosphatase Total Protein Albumin Triglycerides Arterial Blood Glucose 257 H Arterial Blood Ionized Calcium 4.0 L Digoxin Crossmatch 01/02/21 01/02/21 01/02/21 06:25 08:00 08:00 WBC 17.5 H RBC 2.31 L Hgb 6.7 L Hct 22.1 L D MCV 96 H MCHC 30 L RDW 18.4 H Plt Count Lymph % (Auto) [place] % (Auto) Eos % (Auto) Lymph # (Auto) [place] # (Auto) Eos # (Auto) Seg Neutrophils % Seg Neuts % (Manual) Lymphocytes % (Manual) Monocytes % (Manual) Seg Neutrophils # Seg Neutrophils # Man Lymphocytes # (Manual) Monocytes # (Manual) PT INR ABG pH POC ABG pCO2 POC ABG pO2 ABG pO2 ABG HCO3 ABG O2 Saturation ABG Base Excess ABG Hemoglobin ABG Oxyhemoglobin ABG Sodium ABG Potassium ABG Chloride ABG Glucose Oxyhemoglobin Sodium 134 L Potassium 5.3 H Chloride 92.9 L Carbon Dioxide BUN 101 H Creatinine 10.9 H Glucose 560 H* POC Glucose 239 H Lactic Acid Calcium 7.6 L Phosphorus 6.50 H Magnesium Total Bilirubin AST ALT Alkaline Phosphatase Total Protein Albumin Triglycerides Arterial Blood Glucose Arterial Blood Ionized Calcium Digoxin Crossmatch 01/02/21 01/02/21 01/02/21 11:26 15:00 17:57 WBC RBC Hgb Hct MCV MCHC RDW Plt Count Lymph % (Auto) [place] % (Auto) Eos % (Auto) Lymph # (Auto) [place] # (Auto) Eos # (Auto) Seg Neutrophils % Seg Neuts % (Manual) Lymphocytes % (Manual) Monocytes % (Manual) Seg Neutrophils # Seg Neutrophils # Man Lymphocytes # (Manual) Monocytes # (Manual) PT INR ABG pH POC ABG pCO2 POC ABG pO2 ABG pO2 ABG HCO3 ABG O2 Saturation ABG Base Excess ABG Hemoglobin ABG Oxyhemoglobin ABG Sodium ABG Potassium ABG Chloride ABG Glucose Oxyhemoglobin Sodium Potassium Chloride Carbon Dioxide BUN Creatinine Glucose 241 H POC Glucose 205 H 272 H Lactic Acid Calcium Phosphorus Magnesium Total Bilirubin AST ALT Alkaline Phosphatase Total Protein Albumin Triglycerides Arterial Blood Glucose Arterial Blood Ionized Calcium Digoxin Crossmatch 01/02/21 01/02/21 01/03/21 23:25 23:43 03:45 WBC RBC Hgb Hct MCV MCHC RDW Plt Count Lymph % (Auto) [place] % (Auto) Eos % (Auto) Lymph # (Auto) [place] # (Auto) Eos # (Auto) Seg Neutrophils % Seg Neuts % (Manual) Lymphocytes % (Manual) Monocytes % (Manual) Seg Neutrophils # Seg Neutrophils # Man Lymphocytes # (Manual) Monocytes # (Manual) PT INR ABG pH POC ABG pCO2 48.3 H POC ABG pO2 134.4 H 79.7 L ABG pO2 ABG HCO3 ABG O2 Saturation ABG Base Excess ABG Hemoglobin 7.7 L 8.6 L ABG Oxyhemoglobin ABG Sodium 131.8 L 130.4 L ABG Potassium ABG Chloride 97.0 L ABG Glucose 218 H 238 H Oxyhemoglobin Sodium Potassium Chloride Carbon Dioxide BUN Creatinine Glucose POC Glucose 218 H Lactic Acid Calcium Phosphorus Magnesium Total Bilirubin AST ALT Alkaline Phosphatase Total Protein Albumin Triglycerides Arterial Blood Glucose 218 H 238 H Arterial Blood Ionized Calcium 4.1 L 4.0 L Digoxin Crossmatch 01/03/21 01/03/21 01/03/21 04:37 04:37 05:39 WBC 15.2 H RBC 2.38 L Hgb 7.3 L Hct 21.6 L MCV MCHC RDW 16.6 H Plt Count Lymph % (Auto) [place] % (Auto) Eos % (Auto) Lymph # (Auto) [place] # (Auto) Eos # (Auto) Seg Neutrophils % Seg Neuts % (Manual) Lymphocytes % (Manual) Monocytes % (Manual) Seg Neutrophils # Seg Neutrophils # Man Lymphocytes # (Manual) Monocytes # (Manual) PT INR ABG pH POC ABG pCO2 POC ABG pO2 ABG pO2 ABG HCO3 ABG O2 Saturation ABG Base Excess ABG Hemoglobin ABG Oxyhemoglobin ABG Sodium ABG Potassium ABG Chloride ABG Glucose Oxyhemoglobin Sodium 136 L Potassium Chloride 94.5 L Carbon Dioxide BUN 69 H Creatinine 8.0 H Glucose 219 H POC Glucose 222 H Lactic Acid Calcium 7.8 L Phosphorus 4.80 H D Magnesium Total Bilirubin AST ALT Alkaline Phosphatase Total Protein Albumin Triglycerides Arterial Blood Glucose Arterial Blood Ionized Calcium Digoxin Crossmatch 01/03/21 01/03/21 01/03/21 11:29 18:49 23:37 WBC RBC Hgb Hct MCV MCHC RDW Plt Count Lymph % (Auto) [place] % (Auto) Eos % (Auto) Lymph # (Auto) [place] # (Auto) Eos # (Auto) Seg Neutrophils % Seg Neuts % (Manual) Lymphocytes % (Manual) Monocytes % (Manual) Seg Neutrophils # Seg Neutrophils # Man Lymphocytes # (Manual) Monocytes # (Manual) PT INR ABG pH POC ABG pCO2 POC ABG pO2 ABG pO2 ABG HCO3 ABG O2 Saturation ABG Base Excess ABG Hemoglobin ABG Oxyhemoglobin ABG Sodium ABG Potassium ABG Chloride ABG Glucose Oxyhemoglobin Sodium Potassium Chloride Carbon Dioxide BUN Creatinine Glucose POC Glucose 232 H 129 H 140 H Lactic Acid Calcium Phosphorus Magnesium Total Bilirubin AST ALT Alkaline Phosphatase Total Protein Albumin Triglycerides Arterial Blood Glucose Arterial Blood Ionized Calcium Digoxin Crossmatch 01/04/21 01/04/21 01/04/21 03:22 04:38 04:38 WBC 11.1 H RBC 2.89 L Hgb 8.9 L Hct 26.2 L MCV MCHC RDW 16.1 H Plt Count Lymph % (Auto) [place] % (Auto) Eos % (Auto) Lymph # (Auto) [place] # (Auto) Eos # (Auto) Seg Neutrophils % Seg Neuts % (Manual) Lymphocytes % (Manual) Monocytes % (Manual) Seg Neutrophils # Seg Neutrophils # Man Lymphocytes # (Manual) Monocytes # (Manual) PT INR ABG pH POC ABG pCO2 POC ABG pO2 82.3 L ABG pO2 ABG HCO3 ABG O2 Saturation ABG Base Excess ABG Hemoglobin 8.9 L ABG Oxyhemoglobin ABG Sodium 130.5 L ABG Potassium ABG Chloride ABG Glucose 124 H Oxyhemoglobin Sodium Potassium Chloride 95.5 L Carbon Dioxide BUN 87 H Creatinine 9.7 H Glucose 118 H POC Glucose Lactic Acid Calcium 7.7 L Phosphorus Magnesium Total Bilirubin AST ALT Alkaline Phosphatase Total Protein Albumin Triglycerides Arterial Blood Glucose 124 H Arterial Blood Ionized Calcium 3.5 L Digoxin Crossmatch 01/04/21 01/04/21 01/04/21 05:39 12:04 18:04 WBC RBC Hgb Hct MCV MCHC RDW Plt Count Lymph % (Auto) [place] % (Auto) Eos % (Auto) Lymph # (Auto) [place] # (Auto) Eos # (Auto) Seg Neutrophils % Seg Neuts % (Manual) Lymphocytes % (Manual) Monocytes % (Manual) Seg Neutrophils # Seg Neutrophils # Man Lymphocytes # (Manual) Monocytes # (Manual) PT INR ABG pH POC ABG pCO2 POC ABG pO2 ABG pO2 ABG HCO3 ABG O2 Saturation ABG Base Excess ABG Hemoglobin ABG Oxyhemoglobin ABG Sodium ABG Potassium ABG Chloride ABG Glucose Oxyhemoglobin Sodium Potassium Chloride Carbon Dioxide BUN Creatinine Glucose POC Glucose 134 H 125 H 131 H Lactic Acid Calcium Phosphorus Magnesium Total Bilirubin AST ALT Alkaline Phosphatase Total Protein Albumin Triglycerides Arterial Blood Glucose Arterial Blood Ionized Calcium Digoxin Crossmatch 01/04/21 01/05/21 01/05/21 23:41 03:23 04:49 WBC RBC Hgb Hct MCV MCHC RDW Plt Count Lymph % (Auto) [place] % (Auto) Eos % (Auto) Lymph # (Auto) [place] # (Auto) Eos # (Auto) Seg Neutrophils % Seg Neuts % (Manual) Lymphocytes % (Manual) Monocytes % (Manual) Seg Neutrophils # Seg Neutrophils # Man Lymphocytes # (Manual) Monocytes # (Manual) PT INR ABG pH POC ABG pCO2 POC ABG pO2 62.8 L ABG pO2 ABG HCO3 ABG O2 Saturation ABG Base Excess ABG Hemoglobin 9.5 L ABG Oxyhemoglobin 92.0 L ABG Sodium 130.1 L ABG Potassium ABG Chloride ABG Glucose 148 H Oxyhemoglobin Sodium Potassium Chloride 96.9 L Carbon Dioxide BUN 57 H Creatinine 6.7 H Glucose 135 H POC Glucose 132 H Lactic Acid Calcium 8.0 L Phosphorus Magnesium Total Bilirubin AST ALT Alkaline Phosphatase Total Protein Albumin Triglycerides Arterial Blood Glucose 148 H Arterial Blood Ionized Calcium 4.1 L Digoxin Crossmatch 01/05/21 01/05/21 01/05/21 05:04 11:48 12:39 WBC RBC 3.03 L Hgb 9.3 L Hct 27.6 L MCV MCHC RDW 16.5 H Plt Count Lymph % (Auto) [place] % (Auto) Eos % (Auto) Lymph # (Auto) [place] # (Auto) Eos # (Auto) Seg Neutrophils % Seg Neuts % (Manual) Lymphocytes % (Manual) Monocytes % (Manual) Seg Neutrophils # Seg Neutrophils # Man Lymphocytes # (Manual) Monocytes # (Manual) PT INR ABG pH POC ABG pCO2 POC ABG pO2 ABG pO2 ABG HCO3 ABG O2 Saturation ABG Base Excess ABG Hemoglobin ABG Oxyhemoglobin ABG Sodium ABG Potassium ABG Chloride ABG Glucose Oxyhemoglobin Sodium Potassium Chloride Carbon Dioxide BUN Creatinine Glucose POC Glucose 147 H 162 H Lactic Acid Calcium Phosphorus Magnesium Total Bilirubin AST ALT Alkaline Phosphatase Total Protein Albumin Triglycerides Arterial Blood Glucose Arterial Blood Ionized Calcium Digoxin Crossmatch 01/05/21 01/05/21 01/06/21 17:50 23:32 04:15 WBC RBC Hgb Hct MCV MCHC RDW Plt Count Lymph % (Auto) [place] % (Auto) Eos % (Auto) Lymph # (Auto) [place] # (Auto) Eos # (Auto) Seg Neutrophils % Seg Neuts % (Manual) Lymphocytes % (Manual) Monocytes % (Manual) Seg Neutrophils # Seg Neutrophils # Man Lymphocytes # (Manual) Monocytes # (Manual) PT INR ABG pH POC ABG pCO2 POC ABG pO2 ABG pO2 191.0 H ABG HCO3 ABG O2 Saturation 99.2 H ABG Base Excess ABG Hemoglobin 9.0 L ABG Oxyhemoglobin ABG Sodium ABG Potassium ABG Chloride ABG Glucose Oxyhemoglobin Sodium Potassium Chloride Carbon Dioxide BUN Creatinine Glucose POC Glucose 155 H 115 H Lactic Acid Calcium Phosphorus Magnesium Total Bilirubin AST ALT Alkaline Phosphatase Total Protein Albumin Triglycerides Arterial Blood Glucose Arterial Blood Ionized Calcium Digoxin Crossmatch 01/06/21 01/06/21 01/06/21 04:45 05:56 07:03 WBC RBC 2.95 L Hgb 9.1 L Hct 26.8 L MCV MCHC RDW 16.8 H Plt Count Lymph % (Auto) [place] % (Auto) Eos % (Auto) Lymph # (Auto) [place] # (Auto) Eos # (Auto) Seg Neutrophils % Seg Neuts % (Manual) Lymphocytes % (Manual) Monocytes % (Manual) Seg Neutrophils # Seg Neutrophils # Man Lymphocytes # (Manual) Monocytes # (Manual) PT INR ABG pH POC ABG pCO2 POC ABG pO2 ABG pO2 ABG HCO3 ABG O2 Saturation ABG Base Excess ABG Hemoglobin ABG Oxyhemoglobin ABG Sodium ABG Potassium ABG Chloride ABG Glucose Oxyhemoglobin Sodium 135 L Potassium Chloride 95.9 L Carbon Dioxide BUN 82 H Creatinine 8.7 H Glucose 127 H POC Glucose 136 H Lactic Acid Calcium 8.3 L Phosphorus Magnesium Total Bilirubin AST ALT Alkaline Phosphatase Total Protein Albumin Triglycerides Arterial Blood Glucose Arterial Blood Ionized Calcium Digoxin Crossmatch 01/06/21 01/06/21 01/06/21 07:10 11:04 13:38 WBC RBC Hgb Hct MCV MCHC RDW Plt Count Lymph % (Auto) [place] % (Auto) Eos % (Auto) Lymph # (Auto) [place] # (Auto) Eos # (Auto) Seg Neutrophils % Seg Neuts % (Manual) Lymphocytes % (Manual) Monocytes % (Manual) Seg Neutrophils # Seg Neutrophils # Man Lymphocytes # (Manual) Monocytes # (Manual) PT INR ABG pH POC ABG pCO2 POC ABG pO2 ABG pO2 ABG HCO3 ABG O2 Saturation ABG Base Excess ABG Hemoglobin ABG Oxyhemoglobin ABG Sodium ABG Potassium ABG Chloride ABG Glucose Oxyhemoglobin Sodium Potassium Chloride Carbon Dioxide BUN Creatinine Glucose POC Glucose 178 H 155 H Lactic Acid Calcium Phosphorus Magnesium Total Bilirubin AST ALT Alkaline Phosphatase Total Protein Albumin Triglycerides Arterial Blood Glucose Arterial Blood Ionized Calcium Digoxin Crossmatch See Detail 01/06/21 01/06/21 01/07/21 17:35 22:21 03:07 WBC RBC Hgb Hct MCV MCHC RDW Plt Count Lymph % (Auto) [place] % (Auto) Eos % (Auto) Lymph # (Auto) [place] # (Auto) Eos # (Auto) Seg Neutrophils % Seg Neuts % (Manual) Lymphocytes % (Manual) Monocytes % (Manual) Seg Neutrophils # Seg Neutrophils # Man Lymphocytes # (Manual) Monocytes # (Manual) PT INR ABG pH POC ABG pCO2 POC ABG pO2 ABG pO2 ABG HCO3 ABG O2 Saturation ABG Base Excess ABG Hemoglobin 11.9 L ABG Oxyhemoglobin ABG Sodium 135.6 L ABG Potassium ABG Chloride ABG Glucose 181 H Oxyhemoglobin Sodium Potassium Chloride Carbon Dioxide BUN Creatinine Glucose POC Glucose 138 H 202 H Lactic Acid Calcium Phosphorus Magnesium Total Bilirubin AST ALT Alkaline Phosphatase Total Protein Albumin Triglycerides Arterial Blood Glucose 181 H Arterial Blood Ionized Calcium 4.3 L Digoxin Crossmatch 01/07/21 01/07/21 01/07/21 04:50 05:21 08:37 WBC 12.4 H RBC Hgb 11.1 L Hct 33.3 L D MCV MCHC RDW 17.0 H Plt Count Lymph % (Auto) 3.2 L [place] % (Auto) 9.4 H Eos % (Auto) Lymph # (Auto) 0.4 L [place] # (Auto) 1.2 H Eos # (Auto) Seg Neutrophils % 86.6 H Seg Neuts % (Manual) Lymphocytes % (Manual) Monocytes % (Manual) Seg Neutrophils # 10.7 H Seg Neutrophils # Man Lymphocytes # (Manual) Monocytes # (Manual) PT INR ABG pH POC ABG pCO2 POC ABG pO2 ABG pO2 ABG HCO3 ABG O2 Saturation ABG Base Excess ABG Hemoglobin ABG Oxyhemoglobin ABG Sodium ABG Potassium ABG Chloride ABG Glucose Oxyhemoglobin Sodium Potassium Chloride Carbon Dioxide BUN 60 H Creatinine 6.3 H Glucose 154 H POC Glucose 177 H Lactic Acid Calcium 8.3 L Phosphorus Magnesium Total Bilirubin AST ALT Alkaline Phosphatase Total Protein Albumin Triglycerides Arterial Blood Glucose Arterial Blood Ionized Calcium Digoxin Crossmatch 01/07/21 01/07/21 01/07/21 11:21 12:19 17:11 WBC RBC Hgb Hct MCV MCHC RDW Plt Count Lymph % (Auto) [place] % (Auto) Eos % (Auto) Lymph # (Auto) [place] # (Auto) Eos # (Auto) Seg Neutrophils % Seg Neuts % (Manual) Lymphocytes % (Manual) Monocytes % (Manual) Seg Neutrophils # Seg Neutrophils # Man Lymphocytes # (Manual) Monocytes # (Manual) PT INR ABG pH POC ABG pCO2 POC ABG pO2 ABG pO2 ABG HCO3 ABG O2 Saturation ABG Base Excess ABG Hemoglobin ABG Oxyhemoglobin ABG Sodium ABG Potassium ABG Chloride ABG Glucose Oxyhemoglobin Sodium Potassium Chloride Carbon Dioxide BUN Creatinine Glucose POC Glucose 144 H 137 H 119 H Lactic Acid Calcium Phosphorus Magnesium Total Bilirubin AST ALT Alkaline Phosphatase Total Protein Albumin Triglycerides Arterial Blood Glucose Arterial Blood Ionized Calcium Digoxin Crossmatch 01/07/21 01/07/21 01/08/21 17:14 23:39 04:34 WBC RBC Hgb Hct MCV MCHC RDW Plt Count Lymph % (Auto) [place] % (Auto) Eos % (Auto) Lymph # (Auto) [place] # (Auto) Eos # (Auto) Seg Neutrophils % Seg Neuts % (Manual) Lymphocytes % (Manual) Monocytes % (Manual) Seg Neutrophils # Seg Neutrophils # Man Lymphocytes # (Manual) Monocytes # (Manual) PT INR ABG pH 7.345 L POC ABG pCO2 POC ABG pO2 ABG pO2 67.4 L ABG HCO3 ABG O2 Saturation 94.3 L ABG Base Excess -3.9 L ABG Hemoglobin 8.9 L ABG Oxyhemoglobin ABG Sodium ABG Potassium ABG Chloride ABG Glucose Oxyhemoglobin 92.3 L Sodium Potassium Chloride Carbon Dioxide 20 L BUN 93 H Creatinine 8.8 H Glucose 120 H POC Glucose 129 H Lactic Acid Calcium Phosphorus Magnesium Total Bilirubin AST ALT Alkaline Phosphatase 133 H Total Protein 5.4 L Albumin 1.9 L Triglycerides Arterial Blood Glucose Arterial Blood Ionized Calcium Digoxin Crossmatch 01/08/21 01/08/21 01/08/21 05:26 11:38 17:19 WBC RBC Hgb Hct MCV MCHC RDW Plt Count Lymph % (Auto) [place] % (Auto) Eos % (Auto) Lymph # (Auto) [place] # (Auto) Eos # (Auto) Seg Neutrophils % Seg Neuts % (Manual) Lymphocytes % (Manual) Monocytes % (Manual) Seg Neutrophils # Seg Neutrophils # Man Lymphocytes # (Manual) Monocytes # (Manual) PT INR ABG pH POC ABG pCO2 POC ABG pO2 ABG pO2 ABG HCO3 ABG O2 Saturation ABG Base Excess ABG Hemoglobin ABG Oxyhemoglobin ABG Sodium ABG Potassium ABG Chloride ABG Glucose Oxyhemoglobin Sodium Potassium Chloride Carbon Dioxide BUN Creatinine Glucose POC Glucose 125 H 146 H 136 H Lactic Acid Calcium Phosphorus Magnesium Total Bilirubin AST ALT Alkaline Phosphatase Total Protein Albumin Triglycerides Arterial Blood Glucose Arterial Blood Ionized Calcium Digoxin Crossmatch 01/08/21 01/09/21 01/09/21 23:52 05:13 05:21 WBC RBC Hgb Hct MCV MCHC RDW Plt Count Lymph % (Auto) [place] % (Auto) Eos % (Auto) Lymph # (Auto) [place] # (Auto) Eos # (Auto) Seg Neutrophils % Seg Neuts % (Manual) Lymphocytes % (Manual) Monocytes % (Manual) Seg Neutrophils # Seg Neutrophils # Man Lymphocytes # (Manual) Monocytes # (Manual) PT INR ABG pH POC ABG pCO2 POC ABG pO2 ABG pO2 ABG HCO3 ABG O2 Saturation ABG Base Excess ABG Hemoglobin ABG Oxyhemoglobin ABG Sodium ABG Potassium ABG Chloride ABG Glucose Oxyhemoglobin Sodium Potassium Chloride Carbon Dioxide 16 L BUN 123 H Creatinine 10.8 H Glucose 145 H POC Glucose 143 H 144 H Lactic Acid Calcium Phosphorus 5.00 H D Magnesium 2.40 H Total Bilirubin AST ALT Alkaline Phosphatase Total Protein Albumin Triglycerides Arterial Blood Glucose Arterial Blood Ionized Calcium Digoxin Crossmatch 01/09/21 01/09/21 01/09/21 12:08 17:20 23:56 WBC RBC Hgb Hct MCV MCHC RDW Plt Count Lymph % (Auto) [place] % (Auto) Eos % (Auto) Lymph # (Auto) [place] # (Auto) Eos # (Auto) Seg Neutrophils % Seg Neuts % (Manual) Lymphocytes % (Manual) Monocytes % (Manual) Seg Neutrophils # Seg Neutrophils # Man Lymphocytes # (Manual) Monocytes # (Manual) PT INR ABG pH POC ABG pCO2 POC ABG pO2 ABG pO2 ABG HCO3 ABG O2 Saturation ABG Base Excess ABG Hemoglobin ABG Oxyhemoglobin ABG Sodium ABG Potassium ABG Chloride ABG Glucose Oxyhemoglobin Sodium Potassium Chloride Carbon Dioxide BUN Creatinine Glucose POC Glucose 153 H 160 H 158 H Lactic Acid Calcium Phosphorus Magnesium Total Bilirubin AST ALT Alkaline Phosphatase Total Protein Albumin Triglycerides Arterial Blood Glucose Arterial Blood Ionized Calcium Digoxin Crossmatch 01/10/21 01/10/21 01/10/21 04:52 05:44 07:41 WBC RBC Hgb Hct MCV MCHC RDW Plt Count Lymph % (Auto) [place] % (Auto) Eos % (Auto) Lymph # (Auto) [place] # (Auto) Eos # (Auto) Seg Neutrophils % Seg Neuts % (Manual) Lymphocytes % (Manual) Monocytes % (Manual) Seg Neutrophils # Seg Neutrophils # Man Lymphocytes # (Manual) Monocytes # (Manual) PT INR ABG pH POC ABG pCO2 POC ABG pO2 ABG pO2 ABG HCO3 ABG O2 Saturation ABG Base Excess ABG Hemoglobin ABG Oxyhemoglobin ABG Sodium ABG Potassium ABG Chloride ABG Glucose Oxyhemoglobin Sodium 135 L Potassium 3.5 L D Chloride 95.0 L Carbon Dioxide 21 L BUN 93 H Creatinine 8.3 H Glucose 127 H POC Glucose 135 H 157 H Lactic Acid Calcium Phosphorus Magnesium Total Bilirubin AST ALT Alkaline Phosphatase Total Protein Albumin Triglycerides Arterial Blood Glucose Arterial Blood Ionized Calcium Digoxin Crossmatch 01/10/21 01/10/21 01/10/21 09:26 12:03 17:44 WBC 18.2 H RBC 3.14 L Hgb 9.7 L Hct 28.2 L MCV MCHC RDW 16.5 H Plt Count Lymph % (Auto) [place] % (Auto) Eos % (Auto) Lymph # (Auto) [place] # (Auto) Eos # (Auto) Seg Neutrophils % Seg Neuts % (Manual) 95.0 H Lymphocytes % (Manual) 3.0 L Monocytes % (Manual) Seg Neutrophils # Seg Neutrophils # Man 17.3 H Lymphocytes # (Manual) 0.5 L Monocytes # (Manual) PT INR ABG pH POC ABG pCO2 POC ABG pO2 ABG pO2 ABG HCO3 ABG O2 Saturation ABG Base Excess ABG Hemoglobin ABG Oxyhemoglobin ABG Sodium ABG Potassium ABG Chloride ABG Glucose Oxyhemoglobin Sodium Potassium Chloride Carbon Dioxide BUN Creatinine Glucose POC Glucose 163 H 171 H Lactic Acid Calcium Phosphorus Magnesium Total Bilirubin AST ALT Alkaline Phosphatase Total Protein Albumin Triglycerides Arterial Blood Glucose Arterial Blood Ionized Calcium Digoxin Crossmatch 01/10/21 01/11/21 01/11/21 23:50 05:18 05:18 WBC RBC Hgb Hct MCV MCHC RDW Plt Count Lymph % (Auto) [place] % (Auto) Eos % (Auto) Lymph # (Auto) [place] # (Auto) Eos # (Auto) Seg Neutrophils % Seg Neuts % (Manual) Lymphocytes % (Manual) Monocytes % (Manual) Seg Neutrophils # Seg Neutrophils # Man Lymphocytes # (Manual) Monocytes # (Manual) PT INR ABG pH POC ABG pCO2 POC ABG pO2 ABG pO2 ABG HCO3 ABG O2 Saturation ABG Base Excess ABG Hemoglobin ABG Oxyhemoglobin ABG Sodium ABG Potassium ABG Chloride ABG Glucose Oxyhemoglobin Sodium 136 L Potassium Chloride 94.6 L Carbon Dioxide 19 L BUN 145 H Creatinine 10.6 H Glucose 152 H POC Glucose 151 H Lactic Acid Calcium Phosphorus 6.00 H D Magnesium Total Bilirubin AST ALT Alkaline Phosphatase Total Protein Albumin Triglycerides Arterial Blood Glucose Arterial Blood Ionized Calcium Digoxin 0.8 L Crossmatch 01/11/21 01/11/21 01/11/21 05:18 05:19 11:28 WBC 17.4 H RBC 3.34 L Hgb 10.2 L Hct 29.7 L MCV MCHC RDW 15.9 H Plt Count Lymph % (Auto) [place] % (Auto) Eos % (Auto) Lymph # (Auto) [place] # (Auto) Eos # (Auto) Seg Neutrophils % Seg Neuts % (Manual) Lymphocytes % (Manual) Monocytes % (Manual) Seg Neutrophils # Seg Neutrophils # Man Lymphocytes # (Manual) Monocytes # (Manual) PT INR ABG pH POC ABG pCO2 POC ABG pO2 ABG pO2 ABG HCO3 ABG O2 Saturation ABG Base Excess ABG Hemoglobin ABG Oxyhemoglobin ABG Sodium ABG Potassium ABG Chloride ABG Glucose Oxyhemoglobin Sodium Potassium Chloride Carbon Dioxide BUN Creatinine Glucose POC Glucose 149 H 178 H Lactic Acid Calcium Phosphorus Magnesium Total Bilirubin AST ALT Alkaline Phosphatase Total Protein Albumin Triglycerides Arterial Blood Glucose Arterial Blood Ionized Calcium Digoxin Crossmatch 01/11/21 01/11/21 01/12/21 17:31 23:14 05:18 WBC RBC Hgb Hct MCV MCHC RDW Plt Count Lymph % (Auto) [place] % (Auto) Eos % (Auto) Lymph # (Auto) [place] # (Auto) Eos # (Auto) Seg Neutrophils % Seg Neuts % (Manual) Lymphocytes % (Manual) Monocytes % (Manual) Seg Neutrophils # Seg Neutrophils # Man Lymphocytes # (Manual) Monocytes # (Manual) PT INR ABG pH POC ABG pCO2 POC ABG pO2 ABG pO2 ABG HCO3 ABG O2 Saturation ABG Base Excess ABG Hemoglobin ABG Oxyhemoglobin ABG Sodium ABG Potassium ABG Chloride ABG Glucose Oxyhemoglobin Sodium Potassium Chloride Carbon Dioxide BUN Creatinine Glucose POC Glucose 158 H 145 H 148 H Lactic Acid Calcium Phosphorus Magnesium Total Bilirubin AST ALT Alkaline Phosphatase Total Protein Albumin Triglycerides Arterial Blood Glucose Arterial Blood Ionized Calcium Digoxin Crossmatch 01/12/21 01/12/21 01/12/21 06:50 10:45 13:34 WBC RBC Hgb Hct MCV MCHC RDW Plt Count Lymph % (Auto) [place] % (Auto) Eos % (Auto) Lymph # (Auto) [place] # (Auto) Eos # (Auto) Seg Neutrophils % Seg Neuts % (Manual) Lymphocytes % (Manual) Monocytes % (Manual) Seg Neutrophils # Seg Neutrophils # Man Lymphocytes # (Manual) Monocytes # (Manual) PT INR ABG pH POC ABG pCO2 POC ABG pO2 ABG pO2 ABG HCO3 ABG O2 Saturation ABG Base Excess ABG Hemoglobin ABG Oxyhemoglobin ABG Sodium ABG Potassium ABG Chloride ABG Glucose Oxyhemoglobin Sodium Potassium 2.9 L* D Chloride 94.8 L Carbon Dioxide BUN 102 H Creatinine 8.3 H Glucose 139 H POC Glucose 151 H 134 H Lactic Acid Calcium 8.1 L Phosphorus 5.00 H Magnesium Total Bilirubin AST ALT Alkaline Phosphatase Total Protein Albumin Triglycerides Arterial Blood Glucose Arterial Blood Ionized Calcium Digoxin Crossmatch 01/12/21 01/12/21 01/13/21 16:59 23:06 03:45 WBC RBC Hgb Hct MCV MCHC RDW Plt Count Lymph % (Auto) Citrus % (Auto) Eos % (Auto) Lymph # (Auto) Citrus # (Auto) Eos # (Auto) Seg Neutrophils % Seg Neuts % (Manual) Lymphocytes % (Manual) Monocytes % (Manual) Seg Neutrophils # Seg Neutrophils # Man Lymphocytes # (Manual) Monocytes # (Manual) PT INR ABG pH POC ABG pCO2 POC ABG pO2 ABG pO2 ABG HCO3 ABG O2 Saturation ABG Base Excess ABG Hemoglobin ABG Oxyhemoglobin ABG Sodium ABG Potassium ABG Chloride ABG Glucose Oxyhemoglobin Sodium 136 L Potassium 3.4 L Chloride 92.6 L Carbon Dioxide BUN 134 H Creatinine 10.4 H Glucose 126 H POC Glucose 108 H 135 H Lactic Acid Calcium 8.3 L Phosphorus 5.60 H Magnesium 1.50 L Total Bilirubin AST ALT Alkaline Phosphatase Total Protein Albumin Triglycerides Arterial Blood Glucose Arterial Blood Ionized Calcium Digoxin Crossmatch 01/13/21 01/13/21 01/13/21 03:45 05:55 11:59 WBC 17.6 H RBC 3.33 L Hgb 10.2 L Hct 29.5 L MCV MCHC 35 H RDW 15.5 H Plt Count Lymph % (Auto) 4.4 L [place] % (Auto) 10.3 H Eos % (Auto) Lymph # (Auto) 0.8 L [place] # (Auto) 1.8 H Eos # (Auto) Seg Neutrophils % 84.2 H Seg Neuts % (Manual) Lymphocytes % (Manual) Monocytes % (Manual) Seg Neutrophils # 14.8 H Seg Neutrophils # Man Lymphocytes # (Manual) Monocytes # (Manual) PT INR ABG pH POC ABG pCO2 POC ABG pO2 ABG pO2 ABG HCO3 ABG O2 Saturation ABG Base Excess ABG Hemoglobin ABG Oxyhemoglobin ABG Sodium ABG Potassium ABG Chloride ABG Glucose Oxyhemoglobin Sodium Potassium Chloride Carbon Dioxide BUN Creatinine Glucose POC Glucose 134 H 141 H Lactic Acid Calcium Phosphorus Magnesium Total Bilirubin AST ALT Alkaline Phosphatase Total Protein Albumin Triglycerides Arterial Blood Glucose Arterial Blood Ionized Calcium Digoxin Crossmatch 01/13/21 01/14/21 01/14/21 23:09 05:39 05:57 WBC RBC Hgb Hct MCV MCHC RDW Plt Count Lymph % (Auto) [place] % (Auto) Eos % (Auto) Lymph # (Auto) [place] # (Auto) Eos # (Auto) Seg Neutrophils % Seg Neuts % (Manual) Lymphocytes % (Manual) Monocytes % (Manual) Seg Neutrophils # Seg Neutrophils # Man Lymphocytes # (Manual) Monocytes # (Manual) PT INR ABG pH POC ABG pCO2 POC ABG pO2 ABG pO2 ABG HCO3 ABG O2 Saturation ABG Base Excess ABG Hemoglobin ABG Oxyhemoglobin ABG Sodium ABG Potassium ABG Chloride ABG Glucose Oxyhemoglobin Sodium Potassium Chloride 97.6 L Carbon Dioxide BUN 81 H Creatinine 7.6 H Glucose 193 H POC Glucose 106 H 190 H Lactic Acid Calcium 8.2 L Phosphorus 4.60 H Magnesium Total Bilirubin AST ALT Alkaline Phosphatase Total Protein Albumin Triglycerides Arterial Blood Glucose Arterial Blood Ionized Calcium Digoxin Crossmatch 01/14/21 01/14/21 01/14/21 10:00 16:56 16:59 WBC 17.0 H RBC 3.10 L Hgb 9.6 L Hct 27.4 L MCV MCHC 35 H RDW 15.6 H Plt Count Lymph % (Auto) [place] % (Auto) Eos % (Auto) Lymph # (Auto) [place] # (Auto) Eos # (Auto) Seg Neutrophils % Seg Neuts % (Manual) Lymphocytes % (Manual) Monocytes % (Manual) Seg Neutrophils # Seg Neutrophils # Man Lymphocytes # (Manual) Monocytes # (Manual) PT INR ABG pH POC ABG pCO2 POC ABG pO2 ABG pO2 ABG HCO3 ABG O2 Saturation ABG Base Excess ABG Hemoglobin ABG Oxyhemoglobin ABG Sodium ABG Potassium ABG Chloride ABG Glucose Oxyhemoglobin Sodium Potassium Chloride Carbon Dioxide BUN Creatinine Glucose POC Glucose 37 L 34 L Lactic Acid Calcium Phosphorus Magnesium Total Bilirubin AST ALT Alkaline Phosphatase Total Protein Albumin Triglycerides Arterial Blood Glucose Arterial Blood Ionized Calcium Digoxin Crossmatch 01/14/21 01/14/21 01/14/21 17:02 18:34 23:17 WBC RBC Hgb Hct MCV MCHC RDW Plt Count Lymph % (Auto) [place] % (Auto) Eos % (Auto) Lymph # (Auto) [place] # (Auto) Eos # (Auto) Seg Neutrophils % Seg Neuts % (Manual) Lymphocytes % (Manual) Monocytes % (Manual) Seg Neutrophils # Seg Neutrophils # Man Lymphocytes # (Manual) Monocytes # (Manual) PT INR ABG pH POC ABG pCO2 POC ABG pO2 ABG pO2 ABG HCO3 ABG O2 Saturation ABG Base Excess ABG Hemoglobin ABG Oxyhemoglobin ABG Sodium ABG Potassium ABG Chloride ABG Glucose Oxyhemoglobin Sodium Potassium Chloride Carbon Dioxide BUN Creatinine Glucose POC Glucose 35 L 143 H 53 L Lactic Acid Calcium Phosphorus Magnesium Total Bilirubin AST ALT Alkaline Phosphatase Total Protein Albumin Triglycerides Arterial Blood Glucose Arterial Blood Ionized Calcium Digoxin Crossmatch 01/15/21 01/15/21 01/15/21 00:34 04:00 04:00 WBC 15.9 H RBC 3.02 L Hgb 9.3 L Hct 27.3 L MCV MCHC RDW 15.6 H Plt Count Lymph % (Auto) [place] % (Auto) Eos % (Auto) Lymph # (Auto) [place] # (Auto) Eos # (Auto) Seg Neutrophils % Seg Neuts % (Manual) Lymphocytes % (Manual) Monocytes % (Manual) Seg Neutrophils # Seg Neutrophils # Man Lymphocytes # (Manual) Monocytes # (Manual) PT INR ABG pH POC ABG pCO2 POC ABG pO2 ABG pO2 ABG HCO3 ABG O2 Saturation ABG Base Excess ABG Hemoglobin ABG Oxyhemoglobin ABG Sodium ABG Potassium ABG Chloride ABG Glucose Oxyhemoglobin Sodium 136 L Potassium Chloride 94.3 L Carbon Dioxide BUN 117 H Creatinine 9.9 H Glucose 217 H POC Glucose 181 H Lactic Acid Calcium 8.3 L Phosphorus Magnesium Total Bilirubin AST ALT Alkaline Phosphatase Total Protein Albumin Triglycerides Arterial Blood Glucose Arterial Blood Ionized Calcium Digoxin Crossmatch 01/15/21 01/15/21 01/15/21 05:29 11:51 23:13 WBC RBC Hgb Hct MCV MCHC RDW Plt Count Lymph % (Auto) [place] % (Auto) Eos % (Auto) Lymph # (Auto) [place] # (Auto) Eos # (Auto) Seg Neutrophils % Seg Neuts % (Manual) Lymphocytes % (Manual) Monocytes % (Manual) Seg Neutrophils # Seg Neutrophils # Man Lymphocytes # (Manual) Monocytes # (Manual) PT INR ABG pH POC ABG pCO2 POC ABG pO2 ABG pO2 ABG HCO3 ABG O2 Saturation ABG Base Excess ABG Hemoglobin ABG Oxyhemoglobin ABG Sodium ABG Potassium ABG Chloride ABG Glucose Oxyhemoglobin Sodium Potassium Chloride Carbon Dioxide BUN Creatinine Glucose POC Glucose 221 H 62 L 154 H Lactic Acid Calcium Phosphorus Magnesium Total Bilirubin AST ALT Alkaline Phosphatase Total Protein Albumin Triglycerides Arterial Blood Glucose Arterial Blood Ionized Calcium Digoxin Crossmatch 01/16/21 01/16/21 01/16/21 05:04 06:44 06:44 WBC 14.8 H RBC 2.76 L Hgb 8.2 L Hct 24.8 L MCV MCHC RDW 15.6 H Plt Count Lymph % (Auto) [place] % (Auto) Eos % (Auto) Lymph # (Auto) [place] # (Auto) Eos # (Auto) Seg Neutrophils % Seg Neuts % (Manual) Lymphocytes % (Manual) Monocytes % (Manual) Seg Neutrophils # Seg Neutrophils # Man Lymphocytes # (Manual) Monocytes # (Manual) PT INR ABG pH POC ABG pCO2 POC ABG pO2 ABG pO2 ABG HCO3 ABG O2 Saturation ABG Base Excess ABG Hemoglobin ABG Oxyhemoglobin ABG Sodium ABG Potassium ABG Chloride ABG Glucose Oxyhemoglobin Sodium 133 L Potassium Chloride 92.3 L Carbon Dioxide 20 L BUN 160 H Creatinine 12.1 H Glucose 177 H POC Glucose 168 H Lactic Acid Calcium 8.1 L Phosphorus 5.50 H Magnesium 2.50 H Total Bilirubin AST ALT Alkaline Phosphatase Total Protein Albumin Triglycerides Arterial Blood Glucose Arterial Blood Ionized Calcium Digoxin Crossmatch 01/16/21 01/17/21 01/17/21 23:20 05:14 05:14 WBC 12.7 H RBC 2.75 L Hgb 8.5 L Hct 24.6 L MCV MCHC 35 H RDW 15.4 H Plt Count Lymph % (Auto) [place] % (Auto) Eos % (Auto) Lymph # (Auto) [place] # (Auto) Eos # (Auto) Seg Neutrophils % Seg Neuts % (Manual) Lymphocytes % (Manual) Monocytes % (Manual) Seg Neutrophils # Seg Neutrophils # Man Lymphocytes # (Manual) Monocytes # (Manual) PT INR ABG pH POC ABG pCO2 POC ABG pO2 ABG pO2 ABG HCO3 ABG O2 Saturation ABG Base Excess ABG Hemoglobin ABG Oxyhemoglobin ABG Sodium ABG Potassium ABG Chloride ABG Glucose Oxyhemoglobin Sodium Potassium Chloride 97.9 L Carbon Dioxide BUN 84 H Creatinine 7.8 H Glucose 176 H POC Glucose 153 H Lactic Acid Calcium 8.0 L Phosphorus Magnesium Total Bilirubin AST ALT Alkaline Phosphatase Total Protein Albumin Triglycerides Arterial Blood Glucose Arterial Blood Ionized Calcium Digoxin Crossmatch 01/17/21 01/17/21 01/18/21 05:33 11:58 00:07 WBC RBC Hgb Hct MCV MCHC RDW Plt Count Lymph % (Auto) [place] % (Auto) Eos % (Auto) Lymph # (Auto) [place] # (Auto) Eos # (Auto) Seg Neutrophils % Seg Neuts % (Manual) Lymphocytes % (Manual) Monocytes % (Manual) Seg Neutrophils # Seg Neutrophils # Man Lymphocytes # (Manual) Monocytes # (Manual) PT INR ABG pH POC ABG pCO2 POC ABG pO2 ABG pO2 ABG HCO3 ABG O2 Saturation ABG Base Excess ABG Hemoglobin ABG Oxyhemoglobin ABG Sodium ABG Potassium ABG Chloride ABG Glucose Oxyhemoglobin Sodium Potassium Chloride Carbon Dioxide BUN Creatinine Glucose POC Glucose 162 H 64 L 146 H Lactic Acid Calcium Phosphorus Magnesium Total Bilirubin AST ALT Alkaline Phosphatase Total Protein Albumin Triglycerides Arterial Blood Glucose Arterial Blood Ionized Calcium Digoxin Crossmatch 01/18/21 01/18/21 01/18/21 04:19 04:19 06:15 WBC 15.6 H RBC 3.00 L Hgb 9.2 L Hct 26.8 L MCV MCHC 35 H RDW 15.6 H Plt Count Lymph % (Auto) [place] % (Auto) Eos % (Auto) Lymph # (Auto) [place] # (Auto) Eos # (Auto) Seg Neutrophils % Seg Neuts % (Manual) Lymphocytes % (Manual) Monocytes % (Manual) Seg Neutrophils # Seg Neutrophils # Man Lymphocytes # (Manual) Monocytes # (Manual) PT INR ABG pH POC ABG pCO2 POC ABG pO2 ABG pO2 ABG HCO3 ABG O2 Saturation ABG Base Excess ABG Hemoglobin ABG Oxyhemoglobin ABG Sodium ABG Potassium ABG Chloride ABG Glucose Oxyhemoglobin Sodium Potassium Chloride 96.2 L Carbon Dioxide BUN 117 H Creatinine 10.0 H Glucose 165 H POC Glucose 189 H Lactic Acid Calcium Phosphorus 4.70 H D Magnesium Total Bilirubin AST ALT Alkaline Phosphatase Total Protein Albumin Triglycerides Arterial Blood Glucose Arterial Blood Ionized Calcium Digoxin Crossmatch 01/18/21 01/18/21 01/18/21 11:53 13:44 15:08 WBC RBC Hgb Hct MCV MCHC RDW Plt Count Lymph % (Auto) [place] % (Auto) Eos % (Auto) Lymph # (Auto) [place] # (Auto) Eos # (Auto) Seg Neutrophils % Seg Neuts % (Manual) Lymphocytes % (Manual) Monocytes % (Manual) Seg Neutrophils # Seg Neutrophils # Man Lymphocytes # (Manual) Monocytes # (Manual) PT INR ABG pH POC ABG pCO2 POC ABG pO2 ABG pO2 ABG HCO3 ABG O2 Saturation ABG Base Excess ABG Hemoglobin ABG Oxyhemoglobin ABG Sodium ABG Potassium ABG Chloride ABG Glucose Oxyhemoglobin Sodium Potassium Chloride Carbon Dioxide BUN Creatinine Glucose POC Glucose 69 L 50 L 56 L Lactic Acid Calcium Phosphorus Magnesium Total Bilirubin AST ALT Alkaline Phosphatase Total Protein Albumin Triglycerides Arterial Blood Glucose Arterial Blood Ionized Calcium Digoxin Crossmatch 01/18/21 01/19/21 01/19/21 17:50 04:55 08:56 WBC 12.7 H RBC 2.89 L Hgb 8.7 L Hct 25.6 L MCV MCHC RDW 15.5 H Plt Count Lymph % (Auto) [place] % (Auto) Eos % (Auto) Lymph # (Auto) [place] # (Auto) Eos # (Auto) Seg Neutrophils % Seg Neuts % (Manual) Lymphocytes % (Manual) Monocytes % (Manual) Seg Neutrophils # Seg Neutrophils # Man Lymphocytes # (Manual) Monocytes # (Manual) PT INR ABG pH POC ABG pCO2 POC ABG pO2 ABG pO2 ABG HCO3 ABG O2 Saturation ABG Base Excess ABG Hemoglobin ABG Oxyhemoglobin ABG Sodium ABG Potassium ABG Chloride ABG Glucose Oxyhemoglobin Sodium Potassium Chloride Carbon Dioxide BUN Creatinine Glucose POC Glucose 137 H 120 H Lactic Acid Calcium Phosphorus Magnesium Total Bilirubin AST ALT Alkaline Phosphatase Total Protein Albumin Triglycerides Arterial Blood Glucose Arterial Blood Ionized Calcium Digoxin Crossmatch 01/19/21 01/19/21 01/19/21 08:56 11:33 17:32 WBC RBC Hgb Hct MCV MCHC RDW Plt Count Lymph % (Auto) [place] % (Auto) Eos % (Auto) Lymph # (Auto) [place] # (Auto) Eos # (Auto) Seg Neutrophils % Seg Neuts % (Manual) Lymphocytes % (Manual) Monocytes % (Manual) Seg Neutrophils # Seg Neutrophils # Man Lymphocytes # (Manual) Monocytes # (Manual) PT INR ABG pH POC ABG pCO2 POC ABG pO2 ABG pO2 ABG HCO3 ABG O2 Saturation ABG Base Excess ABG Hemoglobin ABG Oxyhemoglobin ABG Sodium ABG Potassium ABG Chloride ABG Glucose Oxyhemoglobin Sodium Potassium Chloride Carbon Dioxide BUN 66 H Creatinine 7.7 H Glucose 119 H POC Glucose 160 H 125 H Lactic Acid Calcium 8.3 L Phosphorus Magnesium Total Bilirubin AST ALT Alkaline Phosphatase Total Protein Albumin Triglycerides Arterial Blood Glucose Arterial Blood Ionized Calcium Digoxin Crossmatch 01/19/21 01/20/21 01/20/21 23:30 03:35 03:35 WBC 12.0 H RBC 2.62 L Hgb 8.3 L Hct 23.2 L MCV MCHC 36 H RDW Plt Count Lymph % (Auto) [place] % (Auto) Eos % (Auto) Lymph # (Auto) [place] # (Auto) Eos # (Auto) Seg Neutrophils % Seg Neuts % (Manual) Lymphocytes % (Manual) Monocytes % (Manual) Seg Neutrophils # Seg Neutrophils # Man Lymphocytes # (Manual) Monocytes # (Manual) PT INR ABG pH POC ABG pCO2 POC ABG pO2 ABG pO2 ABG HCO3 ABG O2 Saturation ABG Base Excess ABG Hemoglobin ABG Oxyhemoglobin ABG Sodium ABG Potassium ABG Chloride ABG Glucose Oxyhemoglobin Sodium Potassium Chloride Carbon Dioxide BUN 46 H Creatinine 5.9 H Glucose 128 H POC Glucose 127 H Lactic Acid Calcium Phosphorus Magnesium Total Bilirubin AST ALT Alkaline Phosphatase Total Protein Albumin Triglycerides Arterial Blood Glucose Arterial Blood Ionized Calcium Digoxin Crossmatch 01/20/21 01/20/21 01/20/21 06:19 11:55 18:00 WBC RBC Hgb Hct MCV MCHC RDW Plt Count Lymph % (Auto) [place] % (Auto) Eos % (Auto) Lymph # (Auto) [place] # (Auto) Eos # (Auto) Seg Neutrophils % Seg Neuts % (Manual) Lymphocytes % (Manual) Monocytes % (Manual) Seg Neutrophils # Seg Neutrophils # Man Lymphocytes # (Manual) Monocytes # (Manual) PT INR ABG pH POC ABG pCO2 POC ABG pO2 ABG pO2 ABG HCO3 ABG O2 Saturation ABG Base Excess ABG Hemoglobin ABG Oxyhemoglobin ABG Sodium ABG Potassium ABG Chloride ABG Glucose Oxyhemoglobin Sodium Potassium Chloride Carbon Dioxide BUN Creatinine Glucose POC Glucose 119 H 128 H 115 H Lactic Acid Calcium Phosphorus Magnesium Total Bilirubin AST ALT Alkaline Phosphatase Total Protein Albumin Triglycerides Arterial Blood Glucose Arterial Blood Ionized Calcium Digoxin Crossmatch 01/20/21 01/21/21 01/21/21 23:26 04:39 05:27 WBC RBC Hgb Hct MCV MCHC RDW Plt Count Lymph % (Auto) [place] % (Auto) Eos % (Auto) Lymph # (Auto) [place] # (Auto) Eos # (Auto) Seg Neutrophils % Seg Neuts % (Manual) Lymphocytes % (Manual) Monocytes % (Manual) Seg Neutrophils # Seg Neutrophils # Man Lymphocytes # (Manual) Monocytes # (Manual) PT INR ABG pH POC ABG pCO2 POC ABG pO2 ABG pO2 ABG HCO3 ABG O2 Saturation ABG Base Excess ABG Hemoglobin ABG Oxyhemoglobin ABG Sodium ABG Potassium ABG Chloride ABG Glucose Oxyhemoglobin Sodium Potassium Chloride Carbon Dioxide BUN 37 H Creatinine 5.3 H Glucose 109 H POC Glucose 108 H 107 H Lactic Acid Calcium Phosphorus 2.10 L Magnesium 1.50 L Total Bilirubin AST ALT Alkaline Phosphatase 143 H Total Protein 6.1 L Albumin 3.0 L Triglycerides Arterial Blood Glucose Arterial Blood Ionized Calcium Digoxin Crossmatch 01/21/21 01/21/21 01/22/21 11:35 17:53 00:20 WBC RBC Hgb Hct MCV MCHC RDW Plt Count Lymph % (Auto) [place] % (Auto) Eos % (Auto) Lymph # (Auto) [place] # (Auto) Eos # (Auto) Seg Neutrophils % Seg Neuts % (Manual) Lymphocytes % (Manual) Monocytes % (Manual) Seg Neutrophils # Seg Neutrophils # Man Lymphocytes # (Manual) Monocytes # (Manual) PT INR ABG pH POC ABG pCO2 POC ABG pO2 ABG pO2 ABG HCO3 ABG O2 Saturation ABG Base Excess ABG Hemoglobin ABG Oxyhemoglobin ABG Sodium ABG Potassium ABG Chloride ABG Glucose Oxyhemoglobin Sodium Potassium Chloride Carbon Dioxide BUN Creatinine Glucose POC Glucose 133 H 124 H 122 H Lactic Acid Calcium Phosphorus Magnesium Total Bilirubin AST ALT Alkaline Phosphatase Total Protein Albumin Triglycerides Arterial Blood Glucose Arterial Blood Ionized Calcium Digoxin Crossmatch 01/22/21 01/22/21 01/22/21 04:00 06:09 11:36 WBC RBC Hgb Hct MCV MCHC RDW Plt Count Lymph % (Auto) [place] % (Auto) Eos % (Auto) Lymph # (Auto) [place] # (Auto) Eos # (Auto) Seg Neutrophils % Seg Neuts % (Manual) Lymphocytes % (Manual) Monocytes % (Manual) Seg Neutrophils # Seg Neutrophils # Man Lymphocytes # (Manual) Monocytes # (Manual) PT INR ABG pH POC ABG pCO2 POC ABG pO2 ABG pO2 ABG HCO3 ABG O2 Saturation ABG Base Excess ABG Hemoglobin ABG Oxyhemoglobin ABG Sodium ABG Potassium ABG Chloride ABG Glucose Oxyhemoglobin Sodium Potassium Chloride Carbon Dioxide BUN 65 H Creatinine 8.2 H D Glucose 111 H POC Glucose 122 H 132 H Lactic Acid Calcium Phosphorus Magnesium Total Bilirubin AST ALT Alkaline Phosphatase Total Protein Albumin Triglycerides Arterial Blood Glucose Arterial Blood Ionized Calcium Digoxin Crossmatch 01/22/21 01/22/21 01/23/21 17:17 23:18 05:29 WBC RBC Hgb Hct MCV MCHC RDW Plt Count Lymph % (Auto) [place] % (Auto) Eos % (Auto) Lymph # (Auto) [place] # (Auto) Eos # (Auto) Seg Neutrophils % Seg Neuts % (Manual) Lymphocytes % (Manual) Monocytes % (Manual) Seg Neutrophils # Seg Neutrophils # Man Lymphocytes # (Manual) Monocytes # (Manual) PT INR ABG pH POC ABG pCO2 POC ABG pO2 ABG pO2 ABG HCO3 ABG O2 Saturation ABG Base Excess ABG Hemoglobin ABG Oxyhemoglobin ABG Sodium ABG Potassium ABG Chloride ABG Glucose Oxyhemoglobin Sodium Potassium Chloride Carbon Dioxide BUN Creatinine Glucose POC Glucose 135 H 128 H 129 H Lactic Acid Calcium Phosphorus Magnesium Total Bilirubin AST ALT Alkaline Phosphatase Total Protein Albumin Triglycerides Arterial Blood Glucose Arterial Blood Ionized Calcium Digoxin Crossmatch 01/23/21 01/23/21 01/23/21 05:45 11:28 16:39 WBC RBC Hgb Hct MCV MCHC RDW Plt Count Lymph % (Auto) [place] % (Auto) Eos % (Auto) Lymph # (Auto) [place] # (Auto) Eos # (Auto) Seg Neutrophils % Seg Neuts % (Manual) Lymphocytes % (Manual) Monocytes % (Manual) Seg Neutrophils # Seg Neutrophils # Man Lymphocytes # (Manual) Monocytes # (Manual) PT INR ABG pH POC ABG pCO2 POC ABG pO2 ABG pO2 ABG HCO3 ABG O2 Saturation ABG Base Excess ABG Hemoglobin ABG Oxyhemoglobin ABG Sodium ABG Potassium ABG Chloride ABG Glucose Oxyhemoglobin Sodium Potassium Chloride Carbon Dioxide BUN 96 H Creatinine 10.8 H Glucose 124 H POC Glucose 160 H 116 H Lactic Acid Calcium Phosphorus Magnesium 2.50 H Total Bilirubin AST ALT Alkaline Phosphatase Total Protein Albumin Triglycerides Arterial Blood Glucose Arterial Blood Ionized Calcium Digoxin Crossmatch 01/24/21 01/24/21 01/24/21 00:02 04:45 05:01 WBC RBC Hgb Hct MCV MCHC RDW Plt Count Lymph % (Auto) [place] % (Auto) Eos % (Auto) Lymph # (Auto) [place] # (Auto) Eos # (Auto) Seg Neutrophils % Seg Neuts % (Manual) Lymphocytes % (Manual) Monocytes % (Manual) Seg Neutrophils # Seg Neutrophils # Man Lymphocytes # (Manual) Monocytes # (Manual) PT INR ABG pH POC ABG pCO2 POC ABG pO2 ABG pO2 ABG HCO3 ABG O2 Saturation ABG Base Excess ABG Hemoglobin ABG Oxyhemoglobin ABG Sodium ABG Potassium ABG Chloride ABG Glucose Oxyhemoglobin Sodium Potassium 3.5 L Chloride Carbon Dioxide BUN 56 H Creatinine 7.7 H Glucose 102 H POC Glucose 120 H 108 H Lactic Acid Calcium Phosphorus Magnesium Total Bilirubin AST ALT Alkaline Phosphatase Total Protein Albumin Triglycerides Arterial Blood Glucose Arterial Blood Ionized Calcium Digoxin Crossmatch 01/24/21 01/24/21 01/24/21 12:03 17:07 23:55 WBC RBC Hgb Hct MCV MCHC RDW Plt Count Lymph % (Auto) [place] % (Auto) Eos % (Auto) Lymph # (Auto) [place] # (Auto) Eos # (Auto) Seg Neutrophils % Seg Neuts % (Manual) Lymphocytes % (Manual) Monocytes % (Manual) Seg Neutrophils # Seg Neutrophils # Man Lymphocytes # (Manual) Monocytes # (Manual) PT INR ABG pH POC ABG pCO2 POC ABG pO2 ABG pO2 ABG HCO3 ABG O2 Saturation ABG Base Excess ABG Hemoglobin ABG Oxyhemoglobin ABG Sodium ABG Potassium ABG Chloride ABG Glucose Oxyhemoglobin Sodium Potassium Chloride Carbon Dioxide BUN Creatinine Glucose POC Glucose 136 H 122 H 112 H Lactic Acid Calcium Phosphorus Magnesium Total Bilirubin AST ALT Alkaline Phosphatase Total Protein Albumin Triglycerides Arterial Blood Glucose Arterial Blood Ionized Calcium Digoxin Crossmatch 01/25/21 01/25/21 01/25/21 05:15 06:00 07:47 WBC RBC Hgb Hct MCV MCHC RDW Plt Count Lymph % (Auto) [place] % (Auto) Eos % (Auto) Lymph # (Auto) [place] # (Auto) Eos # (Auto) Seg Neutrophils % Seg Neuts % (Manual) Lymphocytes % (Manual) Monocytes % (Manual) Seg Neutrophils # Seg Neutrophils # Man Lymphocytes # (Manual) Monocytes # (Manual) PT INR ABG pH POC ABG pCO2 POC ABG pO2 ABG pO2 ABG HCO3 ABG O2 Saturation ABG Base Excess ABG Hemoglobin ABG Oxyhemoglobin ABG Sodium ABG Potassium ABG Chloride ABG Glucose Oxyhemoglobin Sodium 116 L* D Potassium Chloride 79.1 L Carbon Dioxide 17 L D BUN 72 H Creatinine 7.4 H Glucose 2242 H* POC Glucose 117 H 138 H Lactic Acid Calcium 6.7 L D Phosphorus Magnesium Total Bilirubin AST ALT Alkaline Phosphatase Total Protein Albumin Triglycerides Arterial Blood Glucose Arterial Blood Ionized Calcium Digoxin Crossmatch 01/25/21 01/25/21 01/25/21 08:35 11:49 18:42 WBC RBC Hgb Hct MCV MCHC RDW Plt Count Lymph % (Auto) [place] % (Auto) Eos % (Auto) Lymph # (Auto) [place] # (Auto) Eos # (Auto) Seg Neutrophils % Seg Neuts % (Manual) Lymphocytes % (Manual) Monocytes % (Manual) Seg Neutrophils # Seg Neutrophils # Man Lymphocytes # (Manual) Monocytes # (Manual) PT INR ABG pH POC ABG pCO2 POC ABG pO2 ABG pO2 ABG HCO3 ABG O2 Saturation ABG Base Excess ABG Hemoglobin ABG Oxyhemoglobin ABG Sodium ABG Potassium ABG Chloride ABG Glucose Oxyhemoglobin Sodium Potassium Chloride 97.0 L Carbon Dioxide BUN 92 H Creatinine 11.0 H Glucose 125 H POC Glucose 130 H 122 H Lactic Acid Calcium Phosphorus Magnesium Total Bilirubin AST ALT Alkaline Phosphatase Total Protein Albumin Triglycerides Arterial Blood Glucose Arterial Blood Ionized Calcium Digoxin Crossmatch 01/25/21 01/26/21 01/26/21 23:37 04:19 05:48 WBC RBC Hgb Hct MCV MCHC RDW Plt Count Lymph % (Auto) [place] % (Auto) Eos % (Auto) Lymph # (Auto) [place] # (Auto) Eos # (Auto) Seg Neutrophils % Seg Neuts % (Manual) Lymphocytes % (Manual) Monocytes % (Manual) Seg Neutrophils # Seg Neutrophils # Man Lymphocytes # (Manual) Monocytes # (Manual) PT INR ABG pH POC ABG pCO2 POC ABG pO2 ABG pO2 ABG HCO3 ABG O2 Saturation ABG Base Excess ABG Hemoglobin ABG Oxyhemoglobin ABG Sodium ABG Potassium ABG Chloride ABG Glucose Oxyhemoglobin Sodium Potassium Chloride Carbon Dioxide BUN 49 H Creatinine 7.1 H Glucose POC Glucose 144 H 125 H Lactic Acid Calcium Phosphorus Magnesium 1.50 L Total Bilirubin AST ALT Alkaline Phosphatase Total Protein Albumin Triglycerides Arterial Blood Glucose Arterial Blood Ionized Calcium Digoxin Crossmatch 01/26/21 01/26/21 01/27/21 11:16 18:35 00:01 WBC RBC Hgb Hct MCV MCHC RDW Plt Count Lymph % (Auto) [place] % (Auto) Eos % (Auto) Lymph # (Auto) [place] # (Auto) Eos # (Auto) Seg Neutrophils % Seg Neuts % (Manual) Lymphocytes % (Manual) Monocytes % (Manual) Seg Neutrophils # Seg Neutrophils # Man Lymphocytes # (Manual) Monocytes # (Manual) PT INR ABG pH POC ABG pCO2 POC ABG pO2 ABG pO2 ABG HCO3 ABG O2 Saturation ABG Base Excess ABG Hemoglobin ABG Oxyhemoglobin ABG Sodium ABG Potassium ABG Chloride ABG Glucose Oxyhemoglobin Sodium Potassium Chloride Carbon Dioxide BUN Creatinine Glucose POC Glucose 122 H 127 H 130 H Lactic Acid Calcium Phosphorus Magnesium Total Bilirubin AST ALT Alkaline Phosphatase Total Protein Albumin Triglycerides Arterial Blood Glucose Arterial Blood Ionized Calcium Digoxin Crossmatch 01/27/21 01/27/21 01/27/21 04:19 04:19 05:25 WBC 12.4 H RBC 2.79 L Hgb 8.6 L Hct 25.1 L MCV MCHC RDW 16.1 H Plt Count Lymph % (Auto) 7.5 L [place] % (Auto) 9.3 H Eos % (Auto) 4.8 H Lymph # (Auto) 0.9 L [place] # (Auto) 1.1 H Eos # (Auto) 0.6 H Seg Neutrophils % 78.0 H Seg Neuts % (Manual) Lymphocytes % (Manual) Monocytes % (Manual) Seg Neutrophils # 9.7 H Seg Neutrophils # Man Lymphocytes # (Manual) Monocytes # (Manual) PT INR ABG pH POC ABG pCO2 POC ABG pO2 ABG pO2 ABG HCO3 ABG O2 Saturation ABG Base Excess ABG Hemoglobin ABG Oxyhemoglobin ABG Sodium ABG Potassium ABG Chloride ABG Glucose Oxyhemoglobin Sodium Potassium Chloride 97.9 L Carbon Dioxide BUN 76 H Creatinine 9.9 H Glucose 111 H POC Glucose 129 H Lactic Acid Calcium Phosphorus Magnesium Total Bilirubin AST ALT Alkaline Phosphatase Total Protein Albumin Triglycerides Arterial Blood Glucose Arterial Blood Ionized Calcium Digoxin Crossmatch 01/27/21 11:30 WBC RBC Hgb Hct MCV MCHC RDW Plt Count Lymph % (Auto) [place] % (Auto) Eos % (Auto) Lymph # (Auto) [place] # (Auto) Eos # (Auto) Seg Neutrophils % Seg Neuts % (Manual) Lymphocytes % (Manual) Monocytes % (Manual) Seg Neutrophils # Seg Neutrophils # Man Lymphocytes # (Manual) Monocytes # (Manual) PT INR ABG pH POC ABG pCO2 POC ABG pO2 ABG pO2 ABG HCO3 ABG O2 Saturation ABG Base Excess ABG Hemoglobin ABG Oxyhemoglobin ABG Sodium ABG Potassium ABG Chloride ABG Glucose Oxyhemoglobin Sodium Potassium Chloride Carbon Dioxide BUN Creatinine Glucose POC Glucose 128 H Lactic Acid Calcium Phosphorus Magnesium Total Bilirubin AST ALT Alkaline Phosphatase Total Protein Albumin Triglycerides Arterial Blood Glucose Arterial Blood Ionized Calcium Digoxin Crossmatch Allied health notes [id number]
[2021-01-27] MEDS ORDERED: SODIUM CHLORIDE 0.9% 100 ML IV PRN (18:37)
[2021-01-27] MEDS ORDERED: TOTAL PARENTERAL NUTRITION 2,016 ML IV SCH (20:00)
[2021-01-27] MEDS ORDERED: FAT EMULSIONS 20% 250 ML IV SCH (20:00)
[2021-01-27] MEDS: HYDROmorphone 1 MG/1 ML INJ IV PRN (21:06)
[2021-01-27] MEDS: INSULIN GLARGINE 100 UNITS/ML SUB-Q SCH (21:07)
[2021-01-28] MEDS: hydrALAZINE 20 MG/1 ML INJ IV SCH ×6 (02:59→21:47)
[2021-01-28] MEDS: METOPROLOL TARTRATE 5 MG/5 ML INJ IV SCH ×6 (02:59→21:47)
[2021-01-28] MEDS: ONDANSETRON 4 MG/2 ML INJ IV PRN (06:26)
[2021-01-28] MEDS: HYDROmorphone 1 MG/1 ML INJ IV PRN ×2 (06:26→17:43)
[2021-01-28] MEDS: OCTREOTIDE 100 MCG in SODIUM CHLORIDE 0.9% 100 ML IV SCH ×2 (07:09→15:44)
[2021-01-28] MEDS: INSULIN LISPRO 100 UNIT/ML SUB-Q SCH ×4 (08:47→23:48)
--- NOTE | 2021-01-28 10:53 | Progress Note ---
Assessment and Plan Assessment and plan: This is a 60 YO Male with ESRD on PD, GERD, Crohn's Disease, Nicotine Dependence, HTN, Systolic CHF(EF 35%) who presented to the emergency department on 12/22 with complaints of abdominal pain which began shortly after eating fast food rated 10/10 which is periumbilical, constant, associated with fever, nausea and multiple sites of vomiting and self-reported inability to undergo PD. In the emergency room patient underwent a CT scan of the abdomen/pelvis which revealed evidence of partial small bowel obstruction, symptoms were consistent with bacterial peritonitis. Patient was admitted to the hospital service with sepsis, peritonitis, and small bowel obstruction with consults to general surgery, nephrology, infectious disease and [facility]. 12/23. Patient had temperature 101.2 F, tachycardia and elevated lactic acid on admission. Meet sepsis criteria. Started on IV antibiotics. ID has been c onsulted. Surgery consulted this a.m.-advised laparoscopy. He remains on NG tube connected to suction. 12/24. Patient was noted to have peritonitis yesterday and patient undergoing exploratory laparotomy. Patient remained intubated after procedure and is in ICU. Now on broad-spectrum antibiotics. ID on board. 12/25. Remains mechanically ventilated and sedated. Temp 103 Fahrenheit. Antibiotics broadened-ID added fluconazole and Flagyl. Blood cultures ordered. Plan to repeat CT abdomen tomorrow if not better. Surgery following. 12/26: Patient remains on mechanical ventilation on CMV tidal line 550, rate of 14, PEEP of 8 and 30% FiO2 and sedated on fentanyl 4 micrograms. Today we will remove his Jeffery and CCM dropped his rate controlled him on CPAP. We will trend CBC given recent drop in H/H. 12/27: Patient remains intubated on CMV tidal volume 550, rate 12, PEEP 8 on 30% FiO2 at the time my examination. Patient's TPN will be changed to PPN. Patient's fentanyl drip will be changed to IV push fentanyl and have a permacath placed today and midline. Patient was placed on a spontaneous breathing trial was switched back to CMV prior to procedure. 12/28: Patient on fentanyl but awake and follows commands. At the time of my examination he was on a CPAP trial and is scheduled to receive HD today. s/o permacath and PICC placement with vascular yesterday. His blood culture grew Prevotella and addition to Streptococcus bovis. This evening Dr. Spicer attempted to extubate the patient and his heart rate went to the 180s. Stat EKG obtained and cardiology consulted. 12/29: Patient was started on amiodarone IV for A. fib RVR yesterday and today he is more rate controlled into the 70s and 80s. Patient was extubated yesterday and is currently on Ventimask. Patient will be transferred to [facility]. Patient continues to be n.p.o. with TPN and NG tube to LIS. He is hypokalemic today which was repleted. 12/30; patient was on IV amiodarone for treatment with RVR, rate is controlled. Patient was off oxygen. patient is n.p.o. and on TPN. Surgery is following the patient. 12/31: Patient was intubated overnight for respiratory distress and this morning on examination he was on assist control tidal volume 450, rate 20, PEEP 6, 100% FiO2 and RT was getting a ABG to adjust vent settings. Patient had a acute bump in WBC and per ID recommendations we will obtain a CT abdomen/pelvis if leukocytosis persist. Patient is on TPN and sedated with Levophed. Patient is also on vasopressor support with Levophed. Per surgery his ileus is resolving however will maintain OGT to LIWS. 01/01: Patient was started on a vasopressin yesterday late evening. This morning patient is on 20 mcg of Levophed and 0.03 vasopressin and sedated on 20 mcg of propofol. Patient WBC increased today and he is hypokalemic. We will treat hyperkalemia. Patient had a CT chest and abdomen/pelvis pending. The time examination total of 450, rate 20, PEEP of 6 and 35 percent FiO2. Per RN, Dr Pollock has stated that the patient will be returning to the OR today for likely anastomosis seen on CT abdomen/pelvis. 01/02: Patient noted, WBC improving, but noted to have anemia, will transfuse additional unit of Blood and repeat H/H. continue supportive care. 01/03: Continue to wean pressors, ABX PER ID, patient to return to OR today for washout and possible closure, CONTINUE TPN 01/04: Continues to show some improvement. Today is POD#12 s/p ex lap with extensive lysis of adhesions and two small bowel resections with primary anastamosis for SBO with necrotic segment small bowel. POD#3 s/p ex lap, resection of perforated anastamosis, washout and abthera wound vac placement. POD#1 s/p ex lap with right hemicolectomy. Surgery planning to take back to the OR on Saturday with the hope to anastamos ileum to transverse colon and close abdomen. keep NGT to suction. Pt in deep sedation due to open abdomen. Per ID - Continue IV Zosyn, renally dosed for Strep bacteremia treatment till 01/06/2021 -On TPN 01/05: Patient continues on HD, anticipate return to OR tomorrow for closure and anastemosis. Continues with deep sedation due to open abdomen 01/06: Continue supportive care, monitor pressures and electrolytes. He is post op Exploratory laparotomy, 2. Jejunal colonic anastomosis,3. Segmental small bowel resection and anastemosis closure today. Continue wound vac 01/07: Continue supportive care, Today is POD#15 s/p ex lap with extensive lysis of adhesions and two small bowel resections with primary anastamosis for SBO with necrotic segment small bowel. POD#6 s/p ex lap, resection of perforated anastamosis, washout and abthera wound vac placement. POD#4 s/p ex lap with right hemicolectomy. POD #1 exploratory laparotomy, 2. Jejunal colonic anastomosis,3. Segmental small bowel resection. Continue to monitor and correct electrolytes. Patient remains on fentanyl and TPN with lipids. Still hypoactive bowel sounds. 16: Patient now extubated, asked when he can go home, Still lethargic. Continue wound management, wound vac, Will need Rehab eval prior to discharge. 01/09: Patient remains on TPN, was started on labetalol drip per cardiology, africa dueñas had uncontrolled hypertension today however he cannot be given p.o. medications ileus resolves per surgery. Patient received hemodialysis today. NG tube remains to low intermittent suction. 01/10: Patient has some leukocytosis, slight hypokalemia and hyponatremia, metabolic acidosis. NG tube to LIWS, continue TPN. Patient will be downgraded to IMCU today. [facility] is working on placement. Will change frequency of hydralazine and discontinue labetalol drip. We will obtain a.m. BMP/mag/Phos and CBC. Infectious disease will like to start Zosyn if leukocytosis continues to worsen. 01/11: Patient leukocytosis has slightly improved potassium with in normal limits and other electrolytes are elevated but patient is scheduled for HD today. Remains on RA and A,A,Ox4. BP better controlled but remains elevated and we will increase clonidine dose. 01/12/2021; patient's blood pressure is better after dialysis and as needed IV medications and clonidine patch. Patient is followed by general surgery. Patient was alert and oriented and asked when he is going home. 01/13: Surgery is concerned about a leak at his anastamosis given increased output and will treat as controlled fistula and start an octreotide drip. And per surgery if he requires operative intervention will likely need to be left in discontinuity and eventual ileostomy as he has already failed two anastamoses. Patient still has tongue swelling and slurred speech. He is on Benadryl. 01/14: Patient's tongue swelling is improved, patient is alert and oriented, CAM ICU negative. Continue NG tube to low wall intermittent suction. Leukocytosis is improving. Hypomagnesemia resolved. Epogen with HD 01/15: Patient tongue swelling is much improved, bladder scan completed by bedside RN and he needed to be straight cathed. NGT output decreased. Leukocytosis improving. Patient has been having episodes of hypoglycemia during the day and he is on cyclic TPN, Lantus rescheduled to nightly and dosage decreased. 01/16: Continue management per ID and surgery. Will defer repeat CT of the abdomen to the team surgery has been approved by nephrology. Continue current diet and advance all to ice if okay with surgery discussed with nursing staff. 01/17: Discussed surgical recommendation of strict n.p.o. except for small amount of ice as patient has already failed to anastomosis. And risk for additional surgery with tissues were extremely friable from previous scar. He continues on octreotide drip to slow down GI output HARIS drain remains in place with NG suction for decompression. Patient verbalized understanding although stressed about being discharged. We will continue IMCU care unless otherwise advised by david andersen. Prognosis remains guarded continue to monitor electrolytes considering GI output. 01/18: Continue supportive care, BP mildly elevated, continue to monitor, continue current therapy, if no return to PO soon may consider Increasing clonidine to 0.3, PO when ok with surgery. 01/19:Continue supportive care, Per ID continue IV Zosyn, plan to stop at 3 weeks from last surgery end date: 01/24/2021. Other management per surgery. Continue TPN. 01/20: Discussed with Surgery, will continue current management. Advised patient of the findings and plan. 01/21: Continue supportive care. Continue management per surgery advance diet when okay with surgery. Plan of care discussed with the patient in detail. 01/22: NG tube to be replaced explained to the patient why this is important. I agree with PT OT discussed with nursing staff very important to let the PT team know that they should manage HARIS drain while patient is ambulating so that he does not come out. Continue current management. Change in ocreotide to q8h and d/c drip NOTED 01/23: Continue supportive care, HD today, counselling provided to the patient on compliance with medical management 01/24: Replace NGT, Continue management per Surgery. POD 32. Mild hypokalemia noted, will replace. 01/25: Brief summary patient is a 60-year-old male admitted with abdominal pain and noted to have necrotic bowel concerning for PD associated peritonitis. Catheter was placed to convert to HD. Patient also underwent multiple surgical interventions. Initial cultures showed Streptococcus bovis bacteremia and Prevotella bacteremia a COLIN was without vegetations repeat blood cultures have been negative. Part of the surgery is included ex lap, resection of perforated anastomosis, washout and a better wound VAC placement on 01/01. While progress has remained slow if has indeed shown some improvement. Patient is agitated about being in the hospital but understands the care management been provided his vital to his health and to prevent further surgeries. The NG tube has been pulled out 2 days ago he vehemently refused the tube being placed back but after a day of nausea with associated vomiting he was accepting of the chest tube to put back. He continues on TPN. We will continue to monitor electrolytes and correct as needed. This a.m. and erroneous blood was obtained likely from the same line as TPN repeat was done which showed normalizing factors. Patient completed antibiotics on 01/25/2020 . 01/26 Patient with severe sepsis with septic shock, small bowel obstruction, necrotic bowel s/p multiple surgeries. He complains of abdominal pain. No fever currently. He asked me when is he going home and i explained that he is not yet stable for discharge 01/27 Patient with severe sepsis with septic shock, small bowel obstruction, necrotic bowel s/p multiple surgeries. He complains of abdominal pain. No fever currently. Paroxysmal atrial fib managed by cardiology 01/28 Patient with severe sepsis with septic shock, small bowel obstruction, necrotic bowel s/p multiple surgeries. No fever currently. No abd pain currently. I discussed with Surgeon, Dr. Pollock. Continue current management. He also has paroxysmal afib, managed by Cardiology. Severe Sepsis with shock Streptococcus bovis bacteremia/Prevotella bacteremia Gwendolyn albicans tracheal aspirate Small bowel obstruction/necrotic bowel s/p ex lap with extensive lysis of adhesions, 2 small bowel resections with primary anastomosis, right hemicolectomy, jejunal colonic anastomosis, segmental small bowel resection Postoperative ileus Atrial fibrillation with RVR Leukocytosis Hypochloremia Gwendolyn albicans in tracheal aspirate from 12/24 ESRD on PD, PermCath to be placed Transaminitis Systolic CHF(EF 35%) Crohn's disease Hypertension -CCM, surgery, infectious disease, nephrology, vascular surgery, cardiology consulted, appreciate recommendations -12/24 S/p ex lap with extensive expectations, 2 small bowel resections with primary anastomosis with surgery on 12/23 -s/p PICC and Permacath placement with vascular surgery on 12/27 -Extubated on 12/28, reintubated 12/31 for respiratory distress and extubated 01/08 -12/29 echocardiogram shows moderate concentric LVH, small pericardial effusion, transmitral Doppler flow pattern is grade 1 abnormal relaxation pattern, left- ventricular systolic function normal, LVEF 50 to 55%, no wall motion abnormalities. -01/01 CT abdomen/pelvis shows small pericardial effusion, mild coronary artery atherosclerotic calcification, small bilateral pleural effusions with associated volume loss, no convincing evidence of bowel obstruction or inflammation, postoperative changes from interval/recent midline laparotomy with a moderate amount of free fluid throughout the abdomen, small amount of dependent free air presumably postoperative -01/02 s/p ex lap, resection of perforated anastamosis, washout and abthera wound vac placement. -01/04 s/p ex lap with right hemicolectomy. -01/06 s/p exploratory laparotomy, Jejunal colonic anastomosis, Segmental small bowel resection. -s/p Vasopressor support with Levophed and vasopressin -Transitioned to HD from PD -HD per nephro, Epogen with HD -Strict NPO -TPN -Octreotide drip -NGT to LIWS -s/p IV antibiotics -Tobacco abuse cessation counseling -Trend CBC, BMP DVT/GI prophylaxis: PPI, heparin subcu, SCDs to bilateral lower extremities while in bed Disposition: IMCU History Interval history: Patient has had multiple surgeries Less abdominal pain No fever currently Tmax 99.7 Hospitalist Physical - Physical exam Narrative exam: Gen:Not in acute distress, lying in bed Neck:supple, no JVD Lungs:Clear to auscultation bilat, no rales Heart:S1 and S2 reg, no murmurs, no rubs or gallop Abd: covered with dressing, HARIS drain, decreased bowel sounds Ext: No edema, no clubbing, no cyanosis Neuro:Awake,alert,oriented X3, moves all extremities psych: Calm, co-operative - Constitutional Vitals: Temp Pulse Resp BP Pulse Ox 98.2 F 74 15 138/75 94 01/28/21 10:10 01/28/21 10:45 01/28/21 10:10 01/28/21 10:45 01/28/21 09:00 General appearance: Present: no acute distress HEART Score - HEART Score Troponin: Troponin T 0.021 ng/mL (0.00-0.029) 12/22/20 14:38 Results - Labs CBC & Chem 7: 01/27/21 04:19 01/29/21 06:45 Labs: Laboratory Last Values WBC 12.4 K/mm3 (4.5-11.0) H 01/27/21 04:19 RBC 2.79 M/mm3 (3.65-5.03) L 01/27/21 04:19 Hgb 8.6 gm/dl (11.8-15.2) L 01/27/21 04:19 Hct 25.1 % (35.5-45.6) L 01/27/21 04:19 MCV 90 fl (84-94) 01/27/21 04:19 MCH 31 pg (28-32) 01/27/21 04:19 MCHC 34 % (32-34) 01/27/21 04:19 RDW 16.1 % (13.2-15.2) H 01/27/21 04:19 Plt Count 171 K/mm3 (140-440) 01/27/21 04:19 Lymph % (Auto) 7.5 % (13.4-35.0) L 01/27/21 04:19 Cataño % (Auto) 9.3 % (0.0-7.3) H 01/27/21 04:19 Eos % (Auto) 4.8 % (0.0-4.3) H 01/27/21 04:19 Baso % (Auto) 0.4 % (0.0-1.8) 01/27/21 04:19 Lymph # (Auto) 0.9 K/mm3 (1.2-5.4) L 01/27/21 04:19 [place]ataño # (Auto) 1.1 K/mm3 (0.0-0.8) H 01/27/21 04:19 Eos # (Auto) 0.6 K/mm3 (0.0-0.4) H 01/27/21 04:19 Baso # (Auto) 0.0 K/mm3 (0.0-0.1) 01/27/21 04:19 Add Manual Diff Complete 01/10/21 09:26 Total Counted 100 01/10/21 09:26 Seg Neutrophils % 78.0 % (40.0-70.0) H 01/27/21 04:19 Seg Neuts % (Manual) 95.0 % (40.0-70.0) H 01/10/21 09:26 Band Neutrophils % 1.0 % 01/10/21 09:26 Lymphocytes % (Manual) 3.0 % (13.4-35.0) L 01/10/21 09:26 Reactive Lymphs % (Man) 1.0 % 12/29/20 05:16 Monocytes % (Manual) 1.0 % (0.0-7.3) 01/10/21 09:26 Eosinophils % (Manual) 2.0 % (0.0-4.3) 12/29/20 05:16 Metamyelocytes % 2.0 % 12/29/20 05:16 Nucleated RBC % Not Reportable 01/10/21 09:26 Seg Neutrophils # 9.7 K/mm3 (1.8-7.7) H 01/27/21 04:19 Seg Neutrophils # Man 17.3 K/mm3 (1.8-7.7) H 01/10/21 09:26 Band Neutrophils # 0.2 K/mm3 01/10/21 09:26 Lymphocytes # (Manual) 0.5 K/mm3 (1.2-5.4) L 01/10/21 09:26 Abs React Lymphs (Man) 0.0 K/mm3 01/10/21 09:26 Monocytes # (Manual) 0.2 K/mm3 (0.0-0.8) 01/10/21 09:26 Eosinophils # (Manual) 0.0 K/mm3 (0.0-0.4) 01/10/21 09:26 Basophils # (Manual) 0.0 K/mm3 (0.0-0.1) 01/10/21 09:26 Metamyelocytes # 0.0 K/mm3 01/10/21 09:26 Myelocytes # 0.0 K/mm3 01/10/21 09:26 Promyelocytes # 0.0 K/mm3 01/10/21 09:26 Blast Cells # 0.0 K/mm3 01/10/21 09:26 WBC Morphology Not Reportable 01/10/21 09:26 Hypersegmented Neuts Not Reportable 01/10/21 09:26 Hyposegmented Neuts Not Reportable 01/10/21 09:26 Hypogranular Neuts Not Reportable 01/10/21 09:26 Smudge Cells Not Reportable 01/10/21 09:26 Toxic Granulation 1+ 01/10/21 09:26 Toxic Vacuolation Not Reportable 01/10/21 09:26 Dohle Bodies Not Reportable 01/10/21 09:26 Pelger-Huet Anomaly Not Reportable 01/10/21 09:26 Lamar Rods Not Reportable 01/10/21 09:26 Platelet Estimate Consistent w auto 01/10/21 09:26 Clumped Platelets Not Reportable 01/10/21 09:26 Plt Clumps, EDTA Not Reportable 01/10/21 09:26 Large Platelets Not Reportable 01/10/21 09:26 Giant Platelets Not Reportable 01/10/21 09:26 Platelet Satelliting Not Reportable 01/10/21 09:26 Plt Morphology Comment Not Reportable 01/10/21 09:26 RBC Morphology Not Reportable 01/10/21 09:26 Dimorphic RBCs Not Reportable 01/10/21 09:26 Polychromasia Not Reportable 01/10/21 09:26 Hypochromasia Not Reportable 01/10/21 09:26 Poikilocytosis Not Reportable 01/10/21 09:26 Anisocytosis 1+ 01/10/21 09:26 Microcytosis Not Reportable 01/10/21 09:26 Macrocytosis Not Reportable 01/10/21 09:26 Spherocytes Not Reportable 01/10/21 09:26 Pappenheimer Bodies Not Reportable 01/10/21 09:26 Sickle Cells Not Reportable 01/10/21 09:26 Target Cells Not Reportable 01/10/21 09:26 Tear Drop Cells Not Reportable 01/10/21 09:26 Ovalocytes Not Reportable 01/10/21 09:26 Helmet Cells Not Reportable 01/10/21 09:26 [place]-Ivins Bodies Not Reportable 01/10/21 09:26 [place] Rings Not Reportable 01/10/21 09:26 Hanson Cells Not Reportable 01/10/21 09:26 Bite Cells Not Reportable 01/10/21 09:26 Crenated Cell Not Reportable 01/10/21 09:26 Elliptocytes Not Reportable 01/10/21 09:26 Acanthocytes (Spur) Not Reportable 01/10/21 09:26 Rouleaux Not Reportable 01/10/21 09:26 Hemoglobin C Crystals Not Reportable 01/10/21 09:26 Schistocytes Not Reportable 01/10/21 09:26 Malaria parasites Not Reportable 01/10/21 09:26 Lucas Bodies Not Reportable 01/10/21 09:26 Hem Pathologist Commnt No 01/10/21 09:26 PT 16.9 Sec. (12.2-14.9) H 01/01/21 12:45 INR 1.39 (0.87-1.13) H 01/01/21 12:45 APTT 25.1 Sec. (24.2-36.6) 12/22/20 14:38 ABG pH 7.345 pH Units (7.350-7.450) L 01/07/21 17:14 POC ABG pCO2 41.4 mmHg (32.0-48.0) 01/07/21 03:07 ABG pCO2 40.3 mm Hg 01/07/21 17:14 POC ABG pO2 94.5 mmHg (83-108) 01/07/21 03:07 ABG pO2 67.4 mm Hg (80.0-90.0) L 01/07/21 17:14 POC ABG HCO3 22.7 01/07/21 03:07 ABG HCO3 21.5 mmol/L (20.0-26.0) 01/07/21 17:14 ABG O2 Saturation 94.3 % (95.0-99.0) L 01/07/21 17:14 ABG O2 Content 11.6 (0.0-44) 01/07/21 17:14 POC ABG Base Excess -2.7 01/07/21 03:07 ABG Base Excess -3.9 mmol/L (-2.0-3.0) L 01/07/21 17:14 ABG Hemoglobin 8.9 gm/dl (14.0-18.0) L 01/07/21 17:14 ABG Oxyhemoglobin 96.6 (94-98) 01/07/21 03:07 ABG Carboxyhemoglobin 1.5 % (0.0-5.0) 01/07/21 17:14 ABG Methemoglobin 0.6 % (0.0-1.5) 01/07/21 17:14 ABG Sodium 135.6 mmol/L (136.0-145.0) L 01/07/21 03:07 ABG Potassium 4.0 mmol/L (3.40-4.50) 01/07/21 03:07 ABG Chloride 102.0 mmol/L (98-107) 01/07/21 03:07 ABG Glucose 181 mg/dL (65-95) H 01/07/21 03:07 Oxyhemoglobin 92.3 % (95.0-99.0) L 01/07/21 17:14 Carboxyhemoglobin 0.7 (0.5-1.5) 01/07/21 03:07 FiO2 21 % 01/07/21 17:14 FiO2 % 45.0 01/07/21 03:07 Sodium 139 mmol/L (137-145) 01/27/21 04:19 Potassium 3.6 mmol/L (3.6-5.0) 01/27/21 04:19 Chloride 97.9 mmol/L (98-107) L 01/27/21 04:19 Carbon Dioxide 24 mmol/L (22-30) 01/27/21 04:19 Anion Gap 21 mmol/L 01/27/21 04:19 BUN 76 mg/dL (9-20) H 01/27/21 04:19 Creatinine 9.9 mg/dL (0.8-1.3) H 01/27/21 04:19 Estimated GFR 7 ml/min 01/27/21 04:19 BUN/Creatinine Ratio 8 % 01/27/21 04:19 Glucose 111 mg/dL (75-100) H 01/27/21 04:19 POC Glucose 113 mg/dL (70-105) H 01/28/21 05:17 Lactic Acid 1.10 mmol/L (0.7-2.0) 01/14/21 05:39 Calcium 8.9 mg/dL (8.4-10.2) 01/27/21 04:19 Phosphorus 2.60 mg/dL (2.5-4.5) 01/23/21 05:45 Magnesium 2.30 mg/dL (1.7-2.3) 01/27/21 04:19 Total Bilirubin 0.60 mg/dL (0.1-1.2) 01/21/21 04:39 AST 28 units/L (5-40) 01/21/21 04:39 ALT 25 units/L (7-56) 01/21/21 04:39 Alkaline Phosphatase 143 units/L (35-129) H 01/21/21 04:39 Ammonia 30.0 umol/L (25-60) 12/22/20 14:38 Troponin T 0.021 ng/mL (0.00-0.029) 12/22/20 14:38 Total Protein 6.1 g/dL (6.3-8.2) L 01/21/21 04:39 Albumin 3.0 g/dL (3.9-5) L 01/21/21 04:39 Albumin/Globulin Ratio 1.0 % 01/21/21 04:39 Triglycerides 73 mg/dL (2-149) 01/18/21 04:19 Lipase 41 units/L (13-60) 12/22/20 14:38 Procalcitonin > 200.00 ng/mL (<0.15) 12/24/20 15:06 TSH 1.470 mlU/mL (0.270-4.200) 12/28/20 19:44 Arterial Blood Glucose 181 mg/dL (65-95) H 01/07/21 03:07 Arterial Blood Ionized Calcium 4.3 mg/dL (4.6-5.3) L 01/07/21 03:07 Urine Color Yellow (Yellow) 12/22/20 18:53 Urine Turbidity Clear (Clear) 12/22/20 18:53 Urine pH 7.0 (5.0-7.0) 12/22/20 18:53 Ur Specific [place] 1.012 (1.003-1.030) 12/22/20 18:53 Urine Protein >500 mg/dL (Negative) 12/22/20 18:53 Urine Glucose (UA) Neg mg/dL (Negative) 12/22/20 18:53 Urine Ketones Neg mg/dL (Negative) 12/22/20 18:53 Urine Blood Neg (Negative) 12/22/20 18:53 Urine Nitrite Neg (Negative) 12/22/20 18:53 Urine Bilirubin Neg (Negative) 12/22/20 18:53 Urine Urobilinogen < 2.0 mg/dL (<2.0) 12/22/20 18:53 Ur Leukocyte Esterase Neg (Negative) 12/22/20 18:53 Urine WBC (Auto) < 1.0 /HPF (0.0-6.0) 12/22/20 18:53 Urine RBC (Auto) 1.0 /HPF (0.0-6.0) 12/22/20 18:53 Fluid Type Dialysate 12/22/20 Unknown Fluid Color Colorless 12/22/20 Unknown Fluid Appearance Cloudy 12/22/20 Unknown Fluid WBC 208 /mm3 12/22/20 Unknown Fluid RBC 45 /mm3 12/22/20 Unknown Fluid Seg Neutrophils 82.0 % 12/22/20 Unknown Fluid Lymphocytes 11.0 % 12/22/20 Unknown Fluid Reactive Lymphs 0 % 12/22/20 Unknown Fluid Monocytes 7.0 % 12/22/20 Unknown Fluid Eosinophils 0 % 12/22/20 Unknown Fluid Basophils 0 % 12/22/20 Unknown Random Vancomycin 13.7 ug/mL (0-40.0) 12/26/20 Unknown Digoxin 0.8 ng/mL (0.9-2.0) L 01/11/21 05:18 Hepatitis A IgM Ab Non-reactive (NonReactive) 12/23/20 11:38 Hep Bs Antigen Non-reactive (Negative) 12/23/20 11:38 Hep B Core IgM Ab Non-reactive (NonReactive) 12/23/20 11:38 Hepatitis C Antibody Non-reactive (NonReactive) 12/23/20 11:38 Blood Type A POSITIVE 01/06/21 07:10 Antibody Screen Negative 01/06/21 07:10 Crossmatch See Detail 01/06/21 07:10 Jeffery/IV: Voiding Method Urinal Active Medications - Current Medications Current Medications: Generic Name Dose Route Start Last Admin Trade Name Freq PRN Reason Stop Dose Admin Acetaminophen 650 mg 12/31/20 15:30 01/21/21 05:28 Acetaminophen 650 Mg Rect Supp IN 650 mg Q6H PRN Administration Non Cardiac Pain or Temp>100.5 Clonidine HCl 0.2 mg 01/11/21 10:00 01/25/21 09:42 Clonidine Tts 0.2 Mg/24 Hr Patch TD 0.2 mg We THOMAS Administration Dextrose 50 ml 01/14/21 17:59 01/18/21 15:10 Dextrose 50% In Water (25gm) 50 Ml Syringe IV 20 ml Q30MIN PRN Administration Hypoglycemia Protocol Digoxin 0.125 mg 01/09/21 12:00 01/27/21 11:32 Digoxin 0.5 Mg/2 Ml Inj IV 0.125 mg Q48H THOMAS Administration Diphenhydramine HCl 50 mg 01/20/21 10:10 01/24/21 02:21 Diphenhydramine 50 Mg/Ml Vial IV 50 mg Q6H PRN Administration Itching Famotidine 10 mg 12/24/20 13:00 01/27/21 21:08 Famotidine 20 Mg/2 Ml Inj IV 10 mg BID THOMAS Administration Haloperidol Lactate 5 mg 12/29/20 14:16 01/22/21 23:56 Haloperidol Lactate 5 Mg/1 Ml Inj IV 5 mg Q12H PRN Administration Agitation Heparin Sodium (Porcine) 5,000 unit 12/24/20 10:00 01/27/21 21:12 Heparin 5,000 Unit/1 Ml Vial SUB-Q 5,000 unit Q12HR THOMAS Administration Hydralazine HCl 10 mg 01/10/21 14:00 01/28/21 06:27 Hydralazine 20 Mg/1 Ml Inj IV 10 mg Q4HR THOMAS Administration Hydromorphone HCl 0.25 mg 01/09/21 10:53 01/28/21 06:26 Hydromorphone 1 Mg/1 Ml Inj IV 0.25 mg Q6H PRN Administration Pain , Severe (7-10) Hydrophilic Ointment 1 applic 12/31/20 06:39 01/11/21 21:28 Lip Therapy Vaseline TP 1 applic Q2HR PRN Administration Dry Lips Sodium Chloride 100 mls @ 999 mls/hr 01/19/21 09:30 Nacl 0.9% IV [place] PRN Hypotension Octreotide Acetate 100 mcg/ 101 mls @ 200 mls/hr 01/21/21 15:00 01/28/21 07:09 Sodium Chloride IV 200 mls/hr Q8H THOMAS Administration Amino Acids/Electrolytes/Dextrose 2,016 mls @ 84 mls/hr 01/27/21 20:00 01/27/21 21:00 Tpn Adult IV 01/28/21 19:59 84 mls/hr DAILY@2000 [facility] Administration Protocol Sodium Chloride 100 mls @ 999 mls/hr 01/27/21 18:37 Nacl 0.9% IV [place] PRN Hypotension Insulin Glargine 5 units 01/18/21 22:00 01/27/21 21:07 Insulin Glargine 100 Units/Ml SUB-Q 5 units QHS [facility] Administration Insulin Human Lispro 0 unit 01/03/21 12:00 01/28/21 08:47 Insulin Lispro 100 Unit/Ml SUB-Q Not Given Q6HR [facility] Protocol Metoprolol Tartrate 5 mg 12/30/20 12:00 01/28/21 06:27 Metoprolol Tartrate 5 Mg/5 Ml Inj IV 5 mg Q4HR THOMAS Administration Multi-Ingred Cream/Lotion/Oil/Oint 1 applic 12/31/20 06:39 Mineral Oil/Petrolatum, White Ophth Oint 3.5 Gm OU Q4HR PRN Dry Eye(s) Ondansetron HCl 4 mg 01/25/21 11:56 01/28/21 06:26 Ondansetron 4 Mg/2 Ml Inj IV 4 mg Q4H PRN Administration Nausea And Vomiting Scopolamine 1 each 01/15/21 11:00 01/27/21 10:10 Scopolamine Transdermal Patch 72 Hr TD 1 each Q3D THOMAS Administration Sodium Chloride 10 ml 12/22/20 22:00 01/27/21 21:12 Sodium Chloride 0.9% 10 Ml Flush Syringe IV 10 ml BID THOMAS Administration Sodium Chloride 10 ml 12/22/20 19:42 01/27/21 21:12 Sodium Chloride 0.9% 10 Ml Flush Syringe IV 10 ml PRN PRN Administration LINE FLUSH Nutrition/Malnutrition Assess - Dietary Evaluation Nutrition/Malnutrition Findings: Nutrition Notes Start: 12/24/20 12:36 Freq: Status: Active Protocol: Document 01/28/21 09:29 CW (Rec: 01/28/21 09:34 CW [id number]) Nutrition Notes Initial or Follow up Reassessment Current Diagnosis CKD (stage V CKD),Sepsis, Hypertension,Heart Failure, Small Bowel Obstruction Other Pertinent Diagnosis Peritonitis, SBO s/p resection Current Diet CPN at 84 ml/hr Labs/Tests no new labs Pertinent Medications Zofran 01/27: lantus Height 5 ft 7 in Weight 80 kg [place] Body Weight (kg) 67.27 BMI 27.6 Weight Status Overweight Subjective/Other Information TPN day 34. TPN continues to infuse without reports of difficulty. Percent of energy/protein needs met: 100%/100% Burn Absent Trauma Absent Current % PO Negligible Minimum of two criteria No #2 Nutrition Diagnosis Increased nutrient needs ( specify in comment below) Diagnosis Progress(for reassessment Continues documentation) #1 Nutrition Diagnosis Inadequate oral intake Diagnosis Progress(for reassessment Continues documentation) Is patient on ventilator? No Is Patient Ambulatory and/or Out of Bed No REE-([facility]-confined to bed) 1875.348 Kcal/Kg value to use for calculation 21 Approximate Energy Requirements Using 1680 kcal/Kg Calculation Used for Recommendations Kcal/kg Additional Notes Pro needs: 101-121 g/day (1.25 -1.5 g/kg AdjBW, 81kg) Fluid needs per MD. Nutrition Intervention Change Diet Order: Continue CPN Nutrition Support: Continous CPN at 84 ml/hr: MVI Kcal 1,674 Protein (gm) 121 Carbohydrates (gm) 350 Fat (gm) 0 Fluid (mL) 2,016 Fiber (gm) 0 Goal #1 Meet at least 75% of estimated energy and protein needs via CPN Anticipated Discharge Needs: continuous TPN at 84ml/hr Follow-Up By: 01/29/21 Additional Comments Labs in AM: CMP Mg, phos
[2021-01-28] MEDS: HEPARIN 5,000 UNIT/1 ML VIAL SUB-Q SCH ×2 (11:22→21:48)
[2021-01-28] MEDS: FAMOTIDINE 20 MG/2 ML INJ IV SCH ×2 (11:22→21:23)
--- NOTE | 2021-01-28 12:24 | Progress Note ---
Assessment and Plan Assessment: * ESRD previouasly on peritoneal dialysis; now on back up HD (on peritoneal dialysis for 2 years) * Small bowel obstruction --s/p ex-lap with jejuno-ileal anastamosis --s/p ex lap with extensive lysis of adhesions and two small bowel resections with primary anastamosis for SBO with necrotic segment small bowel. --s/p ex lap, resection of perforated anastamosis, washout and abthera wound vac placement. --s/p ex lap with right hemicolectomy. * Acute respiratory failure * Septic shock - resolved * Bacteremia - resolved * Hyperkalemia * Anemia of ESRD * Atrial fibrilation, new onset * Post op ileus Plan: * Continue HD MWF via left IJ permcath (12/27) * 3K bath with dialysis * UF as tolerated * Epogen 10k units w/ dialysis * Rate control per cardiology * Abx per primary team/ID * Nutrition per primary team * Maintatin MAP >65 * Surgery notes appreciated * He will also require outpatient hemodialysis chair prior to discharge * His BUN is much improved. Most likely due to catabolic state. Continue 4- hour of dialysis Subjective Date of service: 01/28/21 Principal diagnosis: Ac hypoxemic resp failure; Severe Sepsis; Peritonitis; Acute SBO; ESRD; CHF Interval history: Patient is currently undergoing dialysis. Tolerating well. His dialysis was discontinued early yesterday due to some machine issues Objective - Vital Signs Vital signs: Vital Signs - 12hr 01/28/21 01/28/21 01/28/21 00:40 01:01 02:00 Temperature Pulse Rate 77 72 73 Respiratory 16 16 Rate Respiratory Rate [Anterior Abdomen] Blood Pressure 153/76 153/88 O2 Sat by Pulse 95 94 Oximetry 01/28/21 01/28/21 01/28/21 02:59 03:00 03:27 Temperature 98.1 F Pulse Rate 69 72 Respiratory 14 Rate Respiratory Rate [Anterior Abdomen] Blood Pressure 153/88 163/81 O2 Sat by Pulse 94 Oximetry 01/28/21 01/28/21 01/28/21 04:01 04:50 05:00 Temperature Pulse Rate 78 76 76 Respiratory 31 H 18 Rate Respiratory Rate [Anterior Abdomen] Blood Pressure 150/77 163/78 O2 Sat by Pulse 94 93 Oximetry 01/28/21 01/28/21 01/28/21 06:01 06:25 06:26 Temperature Pulse Rate 76 Respiratory 15 18 Rate Respiratory 16 Rate [Anterior Abdomen] Blood Pressure 166/81 O2 Sat by Pulse 94 Oximetry 01/28/21 01/28/21 01/28/21 06:27 06:56 07:00 Temperature Pulse Rate 72 74 Respiratory 16 15 Rate Respiratory Rate [Anterior Abdomen] Blood Pressure 166/81 151/77 O2 Sat by Pulse 92 Oximetry 01/28/21 01/28/21 01/28/21 08:00 09:00 10:00 Temperature Pulse Rate 77 71 74 Respiratory 14 11 L 16 Rate Respiratory Rate [Anterior Abdomen] Blood Pressure 150/72 140/72 147/81 O2 Sat by Pulse 93 94 95 Oximetry 01/28/21 01/28/21 01/28/21 10:10 10:15 10:30 Temperature 98.2 F Pulse Rate 73 70 71 Respiratory 15 Rate Respiratory Rate [Anterior Abdomen] Blood Pressure 139/76 149/83 136/71 O2 Sat by Pulse Oximetry 01/28/21 01/28/21 01/28/21 10:45 11:00 11:15 Temperature Pulse Rate 74 72 72 Respiratory 15 Rate Respiratory Rate [Anterior Abdomen] Blood Pressure 138/75 139/79 144/75 O2 Sat by Pulse 95 Oximetry 01/28/21 01/28/21 01/28/21 11:21 11:22 11:30 Temperature Pulse Rate 72 72 Respiratory Rate Respiratory Rate [Anterior Abdomen] Blood Pressure 144/75 144/75 136/75 O2 Sat by Pulse Oximetry 01/28/21 01/28/21 01/28/21 11:45 12:00 12:15 Temperature Pulse Rate 69 69 72 Respiratory Rate Respiratory Rate [Anterior Abdomen] Blood Pressure 134/70 137/74 138/77 O2 Sat by Pulse Oximetry - General Appearance General appearance: well-developed, well-nourished, appears stated age EENT: PERRL, mucous membranes moist Neck: no JVD, no thyromegaly, no carotid bruit, supple, other (Left IJ PermCath in place) Respiratory: Present: Clear to Ascultation Cardiology: regular, normal heart rate Gastrointestinal: other (Midline incision noted. Wound VAC in place) Integumentary: other (No edema) - Lab 01/27/21 04:19 01/27/21 04:19 Most recent lab results ABG pH 7.345 pH Units (7.350-7.450) L 01/07/21 17:14 ABG pCO2 40.3 mm Hg 01/07/21 17:14 ABG pO2 67.4 mm Hg (80.0-90.0) L 01/07/21 17:14 ABG HCO3 21.5 mmol/L (20.0-26.0) 01/07/21 17:14 ABG O2 Saturation 94.3 % (95.0-99.0) L 01/07/21 17:14 Calcium 8.9 mg/dL (8.4-10.2) 01/27/21 04:19 Phosphorus 2.60 mg/dL (2.5-4.5) 01/23/21 05:45 Magnesium 2.30 mg/dL (1.7-2.3) 01/27/21 04:19 Medications & Allergies - Medications Allergies/Adverse Reactions: Allergies No Known Allergies Allergy (Verified 06/09/20 15:27) Home Medications: Home Medications Medication Instructions Recorded Confirmed Last Taken Type Albuterol Mdi (or & Nicu Only) 2 puff IH QID PRN #1 inhalation 04/01/17 11/01/20 10/31/20 09:00 Rx [ProAir HFA Inhaler] Calcium Acetate 667 mg PO DAILY 04/20/20 11/01/20 10/31/20 09:00 History Centrum Men's Tablet 1 tab PO DAILY 04/20/20 11/01/20 10/31/20 09:00 History Cinacalcet 30 mg PO DAILY 04/20/20 11/01/20 10/31/20 09:00 History Dialyvite with Zinc Tablet 1 tab PO DAILY 04/20/20 11/01/20 10/31/20 09:00 History Magnesium 250 mg PO BID 04/20/20 11/01/20 10/31/20 17:00 History Triamcinolone 0.1% 1 1000units TRANSDERMA DAILY 04/20/20 11/01/20 10/31/20 09:00 History Vit B12/Folic Acid/B6/Aa No.15 1,000 mg PO DAILY 04/20/20 11/01/20 10/31/20 09:00 History amLODIPine 10 mg PO DAILY 06/09/20 11/01/20 10/31/20 09:00 History AtorvaSTATin 40 mg PO HS 11/01/20 11/01/20 10/31/20 21:00 History Benadryl 25 mg PO HS 11/01/20 11/01/20 10/31/20 21:00 History Diclofenac 1 TRANSDERMA QID 11/01/20 10/31/20 19:00 History Fluticasone Propionate 1 spray INTRANASAL DAILY 11/01/20 11/01/20 10/31/20 09:00 History Vitamin D3 2,000 units 11/01/20 10/31/20 09:00 History carvediloL 12.5 mg PO DAILY 11/01/20 11/01/20 10/31/20 09:00 History hydrALAZINE 100 mg PO TID 11/01/20 11/01/20 10/31/20 19:00 History Active Medications: Generic Name Dose Route Start Last Admin Trade Name Freq PRN Reason Stop Dose Admin Acetaminophen 650 mg 12/31/20 15:30 01/21/21 05:28 Acetaminophen 650 Mg Rect Supp [place] 650 mg Q6H PRN Administration Non Cardiac Pain or Temp>100.5 Clonidine HCl 0.2 mg 01/11/21 10:00 01/25/21 09:42 Clonidine Tts 0.2 Mg/24 Hr Patch TD 0.2 mg We THOMAS Administration Dextrose 50 ml 01/14/21 17:59 01/18/21 15:10 Dextrose 50% In Water (25gm) 50 Ml Syringe IV 20 ml Q30MIN PRN Administration Hypoglycemia Protocol Digoxin 0.125 mg 01/09/21 12:00 01/27/21 11:32 Digoxin 0.5 Mg/2 Ml Inj IV 0.125 mg Q48H THOMAS Administration Diphenhydramine HCl 50 mg 01/20/21 10:10 01/24/21 02:21 Diphenhydramine 50 Mg/Ml Vial IV 50 mg Q6H PRN Administration Itching Famotidine 10 mg 12/24/20 13:00 01/28/21 11:22 Famotidine 20 Mg/2 Ml Inj IV 10 mg BID THOMAS Administration Haloperidol Lactate 5 mg 12/29/20 14:16 01/22/21 23:56 Haloperidol Lactate 5 Mg/1 Ml Inj IV 5 mg Q12H PRN Administration Agitation Heparin Sodium (Porcine) 5,000 unit 12/24/20 10:00 01/28/21 11:22 Heparin 5,000 Unit/1 Ml Vial SUB-Q 5,000 unit Q12HR THOMAS Administration Hydralazine HCl 10 mg 01/10/21 14:00 01/28/21 11:22 Hydralazine 20 Mg/1 Ml Inj IV 10 mg Q4HR THOMAS Administration Hydromorphone HCl 0.25 mg 01/09/21 10:53 01/28/21 06:26 Hydromorphone 1 Mg/1 Ml Inj IV 0.25 mg Q6H PRN Administration Pain , Severe (7-10) Hydrophilic Ointment 1 applic 12/31/20 06:39 01/11/21 21:28 Lip Therapy Vaseline TP 1 applic Q2HR PRN Administration Dry Lips Sodium Chloride 100 mls @ 999 mls/hr 01/19/21 09:30 Nacl 0.9% IV [place] PRN Hypotension Octreotide Acetate 100 mcg/ 101 mls @ 200 mls/hr 01/21/21 15:00 01/28/21 07:09 Sodium Chloride IV 200 mls/hr Q8H THOMAS Administration Amino Acids/Electrolytes/Dextrose 2,016 mls @ 84 mls/hr 01/27/21 20:00 01/27 21:00 Tpn Adult IV 01/28/21 19:59 84 mls/hr DAILY@1999 [facility] Administration Protocol Sodium Chloride 100 mls @ 999 mls/hr 01/27/21 18:37 Nacl 0.9% IV [place] PRN Hypotension Amino Acids/Electrolytes/Dextrose 2,016 mls @ 84 mls/hr 01/28/21 20:00 Tpn Adult IV DAILY@1999 [facility] Protocol Insulin Glargine 5 units 01/18/21 22:00 01/27/21 21:07 Insulin Glargine 100 Units/Ml SUB-Q 5 units QHS THOMAS Administration Insulin Human Lispro 0 unit 01/03/21 12:00 01/28/21 08:47 Insulin Lispro 100 Unit/Ml SUB-Q Not Given Q6HR [facility] Protocol Metoprolol Tartrate 5 mg 12/30/20 12:00 01/28/21 11:21 Metoprolol Tartrate 5 Mg/5 Ml Inj IV 5 mg Q4HR THOMAS Administration Multi-Ingred Cream/Lotion/Oil/Oint 1 applic 12/31/20 06:39 Mineral Oil/Petrolatum, White Ophth Oint 3.5 Gm OU Q4HR PRN Dry Eye(s) Ondansetron HCl 4 mg 01/25/21 11:56 01/28/21 06:26 Ondansetron 4 Mg/2 Ml Inj IV 4 mg Q4H PRN Administration Nausea And Vomiting Scopolamine 1 each 01/15/21 11:00 01/27/21 10:10 Scopolamine Transdermal Patch 72 Hr TD 1 each Q3D THOMAS Administration Sodium Chloride 10 ml 12/22/20 22:00 01/27/21 21:12 Sodium Chloride 0.9% 10 Ml Flush Syringe IV 10 ml BID THOMAS Administration Sodium Chloride 10 ml 12/22/20 19:42 01/27/21 21:12 Sodium Chloride 0.9% 10 Ml Flush Syringe IV 10 ml PRN PRN Administration LINE FLUSH
[2021-01-28] MEDS: EPOETIN ALFA-EPBX 10,000 UNIT/1 ML VIAL SUB-Q PRN (12:57)
--- NOTE | 2021-01-28 13:19 | Progress Note ---
Assessment and Plan 1. Paroxysmal atrial fibrillation 2. Essential hypertension 3. End-stage renal disease on hemodialysis 4. Anemia 5. Status post acute small bowel obstruction with exploratory laparotomy. Plan. Currently patient is in a sinus rhythm cardiac paez stable. Continue management as per hospitalist note. Subjective Date of service: 01/28/21 Principal diagnosis: Ac hypoxemic resp failure; Severe Sepsis; Peritonitis; Acute SBO; ESRD; CHF Interval history: No cardiac symptoms. Objective Vital Signs Temp Pulse Pulse Resp Resp BP Pulse Ox 01/28/21 13:15 70 146/73 01/28/21 13:00 85 15 137/72 97 01/28/21 12:45 69 137/72 01/28/21 12:30 72 143/69 01/28/21 12:15 72 138/77 01/28/21 12:00 98.6 F 70 15 137/74 96 01/28/21 11:45 69 134/70 01/28/21 11:30 72 136/75 01/28/21 11:22 144/75 01/28/21 11:21 72 144/75 01/28/21 11:15 72 144/75 01/28/21 11:00 72 15 139/79 95 01/28/21 10:45 74 138/75 01/28/21 10:30 71 136/71 01/28/21 10:15 70 149/83 01/28/21 10:10 98.2 F 73 15 139/76 01/28/21 10:00 74 16 147/81 95 01/28/21 09:00 71 11 L 140/72 94 01/28/21 08:00 77 14 150/72 93 01/28/21 07:00 74 15 151/77 92 01/28/21 06:56 16 01/28/21 06:27 72 166/81 01/28/21 06:26 18 01/28/21 06:25 16 01/28/21 06:01 76 15 166/81 94 01/28/21 05:00 76 18 163/78 93 01/28/21 04:50 76 01/28/21 04:01 78 31 H 150/77 94 01/28/21 03:27 98.1 F 01/28/21 03:00 72 14 163/81 94 01/28/21 02:59 69 153/88 01/28/21 02:00 73 16 153/88 94 01/28/21 01:01 72 16 153/76 95 01/28/21 00:40 77 01/28/21 00:00 71 16 161/88 96 01/27/21 23:40 98.0 F 01/27/21 23:01 76 15 154/82 98 01/27/21 23:00 75 15 154/82 94 01/27/21 22:01 76 14 154/77 98 01/27/21 21:10 68 161/84 01/27/21 21:09 69 161/84 01/27/21 21:06 18 01/27/21 21:01 76 20 161/84 93 01/27/21 20:45 75 01/27/21 20:00 99.7 F H 74 17 164/77 93 01/27/21 19:01 76 19 157/76 94 01/27/21 18:31 96.8 F L 79 23 146/72 01/27/21 18:26 74 149/79 01/27/21 18:00 77 20 155/80 95 01/27/21 17:31 99.1 F 01/27/21 17:30 82 133/63 01/27/21 17:15 85 128/59 01/27/21 17:00 75 18 146/78 96 01/27/21 16:45 72 146/82 01/27/21 16:30 77 146/86 01/27/21 16:15 69 146/82 01/27/21 16:00 71 73 15 140/81 95 01/27/21 15:45 71 145/75 01/27/21 15:30 70 153/83 01/27/21 15:25 98.7 F 70 16 153/83 01/27/21 15:00 70 28 H 161/84 94 01/27/21 14:50 73 158/80 01/27/21 14:00 76 29 H 158/80 95 - Physical Examination General: No Apparent Distress HEENT: Positive: PERRL Neck: Positive: neck supple Cardiac: Positive: Regular Rate, S1/S2, PMI, Laterally Displaced Lungs: Positive: clear to auscultation, No Wheeze, Rales, Rhonchi Neuro: Positive: Grossly Intact Abdomen: Positive: Other (post op) Skin: Positive: Clear Extremities: Absent: edema - Allied health notes Allied health notes reviewed: nursing
--- NOTE | 2021-01-28 13:20 | Progress Note ---
Assessment and Plan Acute hypoxemic respiratory failure, on mechanical ventilatory support. Severe Sepsis Peritonitis Acute small-bowel obstruction with tissue necrosis. End-stage renal disease, on dialysis. Hypertension. Crohn's disease. Gastroesophageal reflux disease. Heart failure with reduced ejection fraction. Hyperkalemia. Anemia that is normocytic. Lactic acidosis. Oropharyngeal dysphagia - no new issues respiratory-paez today, continue care as below; - J-P drain in situ - continue octreotide - follow clinically for S&S of infection re: fevers / WBC - continue total parenteral nutrition - continue wound care per RN/WCN - continue to wean supplemental oxygen for target O2 sat's > 92% acutely - aspiration precautions - continue bronchodilators with pulmonary hygiene per RT - wean per pulmonary driven protocols otherwise - HD/UF per nephrology prescription for toxin and volume control - avoid nephrotoxins, renally dose all medications - continue accuchecks with glycemic control per SSI for target blood glucose of <180 mg/dL; avoid hypoglycemia - continue to avoid benzodiazepine's, reduce the possibility of delirium - AB's per ID rec's - prn analgesia per pain score - Maintenance of sleep-wake cycle, avoid delirium - G.I. & VTE prophylaxis - PT/OT/ROM exercises - continue mobility protocols for pressure ulcer prophylaxis - Monitor hemodynamics closely - continue other care per attending / other consultants - discharge planning ongoing concurrently .... Re-evaluate in am & prn Subjective Date of service: 01/28/21 Principal diagnosis: Ac hypoxemic resp failure; Severe Sepsis; Peritonitis; Acute SBO; ESRD; CHF Interval history: Patient is seen today for: Ac hypoxemic resp failure; Severe Sepsis; Peritonitis; Acute SBO; ESRD on Dialysis; HTN; Crohn's disease; HFrEF Seen and examined at bedside; 24hour events reviewed; nursing and respiratory care staff consulted; no adverse overnight events reported to me; resting in bed; now on room air; remains on conservative management; no emesis; no gross bloody HARIS tube drainage; denies N/V/F/C Objective Vital Signs - 12hr 01/28/21 01/28/21 01/28/21 02:00 02:59 03:00 Temperature Pulse Rate 73 69 72 Respiratory 16 14 Rate Respiratory Rate [Anterior Abdomen] Blood Pressure 153/88 153/88 163/81 O2 Sat by Pulse 94 94 Oximetry 01/28/21 01/28/21 01/28/21 03:27 04:01 04:50 Temperature 98.1 F Pulse Rate 78 76 Respiratory 31 H Rate Respiratory Rate [Anterior Abdomen] Blood Pressure 150/77 O2 Sat by Pulse 94 Oximetry 01/28/21 01/28/21 01/28/21 05:00 06:01 06:25 Temperature Pulse Rate 76 76 Respiratory 18 15 Rate Respiratory 16 Rate [Anterior Abdomen] Blood Pressure 163/78 166/81 O2 Sat by Pulse 93 94 Oximetry 01/28/21 01/28/21 01/28/21 06:26 06:27 06:56 Temperature Pulse Rate 72 Respiratory 18 16 Rate Respiratory Rate [Anterior Abdomen] Blood Pressure 166/81 O2 Sat by Pulse Oximetry 01/28/21 01/28/21 01/28/21 07:00 08:00 09:00 Temperature Pulse Rate 74 77 71 Respiratory 15 14 11 L Rate Respiratory Rate [Anterior Abdomen] Blood Pressure 151/77 150/72 140/72 O2 Sat by Pulse 92 93 94 Oximetry 01/28/21 01/28/21 01/28/21 10:00 10:10 10:15 Temperature 98.2 F Pulse Rate 74 73 70 Respiratory 16 15 Rate Respiratory Rate [Anterior Abdomen] Blood Pressure 147/81 139/76 149/83 O2 Sat by Pulse 95 Oximetry 01/28/21 01/28/21 01/28/21 10:30 10:45 11:00 Temperature Pulse Rate 71 74 72 Respiratory 15 Rate Respiratory Rate [Anterior Abdomen] Blood Pressure 136/71 138/75 139/79 O2 Sat by Pulse 95 Oximetry 01/28/21 01/28/21 01/28/21 11:15 11:21 11:22 Temperature Pulse Rate 72 72 Respiratory Rate Respiratory Rate [Anterior Abdomen] Blood Pressure 144/75 144/75 144/75 O2 Sat by Pulse Oximetry 01/28/21 01/28/21 01/28/21 11:30 11:45 12:00 Temperature 98.6 F Pulse Rate 72 69 70 Respiratory 15 Rate Respiratory Rate [Anterior Abdomen] Blood Pressure 136/75 134/70 137/74 O2 Sat by Pulse 96 Oximetry 01/28/21 01/28/21 01/28/21 12:15 12:30 12:45 Temperature Pulse Rate 72 72 69 Respiratory Rate Respiratory Rate [Anterior Abdomen] Blood Pressure 138/77 143/69 137/72 O2 Sat by Pulse Oximetry 01/28/21 01/28/21 13:00 13:15 Temperature Pulse Rate 85 70 Respiratory 15 Rate Respiratory Rate [Anterior Abdomen] Blood Pressure 137/72 146/73 O2 Sat by Pulse 97 Oximetry Constitutional: no acute distress, alert, other (elderly male with normal respiratory effort at rest) Eyes: non-icteric ENT: oropharynx dry, oropharyngeal exudate pre Neck: supple, no lymphadenopathy, no JVD Effort: normal Ascultation: Bilateral: clear, diminished breath sounds Percussion: Bilateral: not dull Cardiovascular: regular rate and rhythm, other (S1,S2) Gastrointestinal: hypoactive bowel sounds, soft, non-tender, non-distended (protuberant), other (Midline abdominal incision; + HARIS drain in place) Integumentary: other (Midline abdominal incision ) Extremities: no cyanosis, no edema, pulses normal, no ischemia or petechiae Neurologic: non-focal exam (grossly), pupils equal and round, CN II-XII normal Psychiatric: mood appropriate, affect normal CBC and BMP: 01/27/21 04:19 01/29/21 06:45 ABG, PT/INR, D-dimer: ABG ABG pH 7.345 pH Units (7.350-7.450) L 01/07/21 17:14 POC ABG pCO2 41.4 mmHg (32.0-48.0) 01/07/21 03:07 ABG pCO2 40.3 mm Hg 01/07/21 17:14 POC ABG pO2 94.5 mmHg (83-108) 01/07/21 03:07 ABG pO2 67.4 mm Hg (80.0-90.0) L 01/07/21 17:14 POC ABG HCO3 22.7 01/07/21 03:07 ABG O2 Saturation 94.3 % (95.0-99.0) L 01/07/21 17:14 PT/INR, D-dimer PT 16.9 Sec. (12.2-14.9) H 01/01/21 12:45 INR 1.39 (0.87-1.13) H 01/01/21 12:45 Abnormal lab findings: Abnormal Labs 12/22/20 12/22/20 12/22/20 14:38 14:38 14:38 WBC RBC Hgb 11.2 L Hct 35.0 L MCV MCHC RDW 16.7 H Plt Count Lymph % (Auto) [place] % (Auto) Eos % (Auto) Lymph # (Auto) [place] # (Auto) Eos # (Auto) Seg Neutrophils % Seg Neuts % (Manual) 94.0 H Lymphocytes % (Manual) 5.0 L Monocytes % (Manual) Seg Neutrophils # Seg Neutrophils # Man Lymphocytes # (Manual) 0.3 L Monocytes # (Manual) PT INR ABG pH POC ABG pCO2 POC ABG pO2 ABG pO2 ABG HCO3 ABG O2 Saturation ABG Base Excess ABG Hemoglobin ABG Oxyhemoglobin ABG Sodium ABG Potassium ABG Chloride ABG Glucose Oxyhemoglobin Sodium Potassium Chloride Carbon Dioxide BUN 58 H Creatinine 13.2 H Glucose 113 H POC Glucose Lactic Acid 3.60 H* Calcium Phosphorus Magnesium Total Bilirubin 1.30 H AST ALT Alkaline Phosphatase 155 H Total Protein Albumin Triglycerides Arterial Blood Glucose Arterial Blood Ionized Calcium Digoxin Crossmatch 12/22/20 12/22/20 12/23/20 16:26 17:47 05:22 WBC RBC Hgb Hct MCV MCHC RDW Plt Count Lymph % (Auto) [place] % (Auto) Eos % (Auto) Lymph # (Auto) [place] # (Auto) Eos # (Auto) Seg Neutrophils % Seg Neuts % (Manual) Lymphocytes % (Manual) Monocytes % (Manual) Seg Neutrophils # Seg Neutrophils # Man Lymphocytes # (Manual) Monocytes # (Manual) PT INR ABG pH POC ABG pCO2 POC ABG pO2 ABG pO2 ABG HCO3 ABG O2 Saturation ABG Base Excess ABG Hemoglobin ABG Oxyhemoglobin ABG Sodium ABG Potassium ABG Chloride ABG Glucose Oxyhemoglobin Sodium Potassium Chloride Carbon Dioxide BUN Creatinine Glucose POC Glucose Lactic Acid 2.80 H* 3.10 H* 2.30 H* Calcium Phosphorus Magnesium Total Bilirubin AST ALT Alkaline Phosphatase Total Protein Albumin Triglycerides Arterial Blood Glucose Arterial Blood Ionized Calcium Digoxin Crossmatch 12/23/20 12/23/20 12/23/20 05:22 05:22 06:35 WBC 12.1 H RBC Hgb 11.0 L Hct 33.7 L MCV MCHC RDW 16.9 H Plt Count Lymph % (Auto) [place] % (Auto) Eos % (Auto) Lymph # (Auto) [place] # (Auto) Eos # (Auto) Seg Neutrophils % Seg Neuts % (Manual) 93.0 H Lymphocytes % (Manual) 1.0 L Monocytes % (Manual) Seg Neutrophils # Seg Neutrophils # Man 11.3 H Lymphocytes # (Manual) 0.1 L Monocytes # (Manual) PT INR ABG pH POC ABG pCO2 POC ABG pO2 ABG pO2 ABG HCO3 ABG O2 Saturation ABG Base Excess ABG Hemoglobin ABG Oxyhemoglobin ABG Sodium ABG Potassium ABG Chloride ABG Glucose Oxyhemoglobin Sodium Potassium 5.7 H D Chloride Carbon Dioxide BUN 73 H Creatinine 14.2 H Glucose POC Glucose Lactic Acid 2.30 H* Calcium 7.9 L Phosphorus Magnesium Total Bilirubin 1.40 H AST 119 H ALT 130 H Alkaline Phosphatase 183 H Total Protein 6.1 L Albumin 3.6 L Triglycerides Arterial Blood Glucose Arterial Blood Ionized Calcium Digoxin Crossmatch 12/23/20 12/23/20 12/23/20 11:40 13:53 16:47 WBC RBC Hgb 10.0 L Hct 30.4 L MCV MCHC RDW Plt Count Lymph % (Auto) [place] % (Auto) Eos % (Auto) Lymph # (Auto) [place] # (Auto) Eos # (Auto) Seg Neutrophils % Seg Neuts % (Manual) Lymphocytes % (Manual) Monocytes % (Manual) Seg Neutrophils # Seg Neutrophils # Man Lymphocytes # (Manual) Monocytes # (Manual) PT INR ABG pH POC ABG pCO2 POC ABG pO2 137.5 H ABG pO2 ABG HCO3 ABG O2 Saturation ABG Base Excess ABG Hemoglobin 9.7 L ABG Oxyhemoglobin ABG Sodium 134.1 L ABG Potassium 6.6 H ABG Chloride ABG Glucose 103 H Oxyhemoglobin Sodium Potassium Chloride Carbon Dioxide BUN Creatinine Glucose POC Glucose Lactic Acid Calcium Phosphorus Magnesium Total Bilirubin AST ALT Alkaline Phosphatase Total Protein Albumin Triglycerides Arterial Blood Glucose 103 H Arterial Blood Ionized Calcium 3.8 L Digoxin Crossmatch See Detail 12/23/20 12/23/20 12/24/20 20:35 20:40 01:20 WBC RBC Hgb Hct MCV MCHC RDW Plt Count Lymph % (Auto) [place] % (Auto) Eos % (Auto) Lymph # (Auto) [place] # (Auto) Eos # (Auto) Seg Neutrophils % Seg Neuts % (Manual) Lymphocytes % (Manual) Monocytes % (Manual) Seg Neutrophils # Seg Neutrophils # Man Lymphocytes # (Manual) Monocytes # (Manual) PT INR ABG pH 7.252 L POC ABG pCO2 POC ABG pO2 ABG pO2 50.1 L ABG HCO3 ABG O2 Saturation 81.1 L ABG Base Excess -5.9 L ABG Hemoglobin 12.1 L ABG Oxyhemoglobin ABG Sodium ABG Potassium ABG Chloride ABG Glucose Oxyhemoglobin 78.6 L Sodium 134 L Potassium 6.9 H* D 6.3 H* Chloride Carbon Dioxide 18 L 20 L BUN 87 H 91 H Creatinine 15.3 H 15.3 H Glucose 103 H POC Glucose Lactic Acid Calcium 6.9 L 7.5 L Phosphorus Magnesium Total Bilirubin AST ALT Alkaline Phosphatase Total Protein Albumin Triglycerides Arterial Blood Glucose Arterial Blood Ionized Calcium Digoxin Crossmatch 12/24/20 12/24/20 12/24/20 04:00 10:29 10:29 WBC RBC 3.49 L Hgb 10.5 L Hct 31.2 L MCV MCHC RDW 17.5 H Plt Count 124 L Lymph % (Auto) 3.7 L [place] % (Auto) 9.8 H Eos % (Auto) Lymph # (Auto) 0.2 L [place] # (Auto) Eos # (Auto) Seg Neutrophils % 85.9 H Seg Neuts % (Manual) Lymphocytes % (Manual) Monocytes % (Manual) Seg Neutrophils # Seg Neutrophils # Man Lymphocytes # (Manual) Monocytes # (Manual) PT INR ABG pH POC ABG pCO2 28.1 L POC ABG pO2 ABG pO2 ABG HCO3 ABG O2 Saturation ABG Base Excess ABG Hemoglobin ABG Oxyhemoglobin ABG Sodium 133.9 L ABG Potassium 5.3 H ABG Chloride 108.0 H ABG Glucose Oxyhemoglobin Sodium Potassium 5.6 H Chloride Carbon Dioxide 19 L BUN 99 H Creatinine 16.9 H Glucose 52 L POC Glucose Lactic Acid Calcium 7.6 L Phosphorus Magnesium Total Bilirubin 3.50 H AST 67 H ALT 71 H Alkaline Phosphatase Total Protein 3.5 L D Albumin 2.1 L Triglycerides Arterial Blood Glucose Arterial Blood Ionized Calcium 4.0 L Digoxin Crossmatch 12/25/20 12/25/20 12/25/20 03:33 04:00 04:00 WBC 3.8 L RBC 2.90 L Hgb 8.6 L Hct 25.7 L MCV MCHC RDW 16.7 H Plt Count 113 L Lymph % (Auto) [place] % (Auto) Eos % (Auto) Lymph # (Auto) [place] # (Auto) Eos # (Auto) Seg Neutrophils % Seg Neuts % (Manual) Lymphocytes % (Manual) Monocytes % (Manual) Seg Neutrophils # Seg Neutrophils # Man Lymphocytes # (Manual) Monocytes # (Manual) PT INR ABG pH 7.544 H POC ABG pCO2 28.2 L POC ABG pO2 62.8 L ABG pO2 ABG HCO3 ABG O2 Saturation ABG Base Excess ABG Hemoglobin 9.3 L ABG Oxyhemoglobin 93.0 L ABG Sodium 130.3 L ABG Potassium ABG Chloride ABG Glucose 97 H Oxyhemoglobin Sodium Potassium Chloride Carbon Dioxide BUN 62 H Creatinine 11.4 H Glucose POC Glucose Lactic Acid Calcium 7.7 L Phosphorus 5.00 H Magnesium Total Bilirubin AST ALT Alkaline Phosphatase Total Protein Albumin Triglycerides Arterial Blood Glucose 97 H Arterial Blood Ionized Calcium 3.9 L Digoxin Crossmatch 12/26/20 12/26/20 12/27/20 04:46 Unknown 03:40 WBC 4.1 L RBC 2.61 L Hgb 7.8 L Hct 23.4 L MCV MCHC RDW 17.1 H Plt Count 119 L Lymph % (Auto) 5.3 L [place] % (Auto) 10.6 H Eos % (Auto) Lymph # (Auto) 0.2 L [place] # (Auto) Eos # (Auto) Seg Neutrophils % 78.8 H Seg Neuts % (Manual) Lymphocytes % (Manual) Monocytes % (Manual) Seg Neutrophils # Seg Neutrophils # Man Lymphocytes # (Manual) Monocytes # (Manual) PT INR ABG pH 7.333 L 7.332 L POC ABG pCO2 POC ABG pO2 ABG pO2 ABG HCO3 26.9 H ABG O2 Saturation ABG Base Excess -2.4 L ABG Hemoglobin 6.8 L 7.2 L ABG Oxyhemoglobin ABG Sodium ABG Potassium ABG Chloride ABG Glucose Oxyhemoglobin 93.0 L 93.1 L Sodium Potassium Chloride Carbon Dioxide BUN Creatinine Glucose POC Glucose Lactic Acid Calcium Phosphorus Magnesium Total Bilirubin AST ALT Alkaline Phosphatase Total Protein Albumin Triglycerides Arterial Blood Glucose Arterial Blood Ionized Calcium Digoxin Crossmatch 12/27/20 12/27/20 12/27/20 06:40 06:40 11:22 WBC 4.4 L RBC 2.49 L Hgb 7.4 L Hct 22.4 L MCV MCHC RDW 17.1 H Plt Count 111 L Lymph % (Auto) 6.7 L [place] % (Auto) 12.6 H Eos % (Auto) Lymph # (Auto) 0.3 L [place] # (Auto) Eos # (Auto) Seg Neutrophils % 77.6 H Seg Neuts % (Manual) Lymphocytes % (Manual) Monocytes % (Manual) Seg Neutrophils # Seg Neutrophils # Man Lymphocytes # (Manual) Monocytes # (Manual) PT INR ABG pH POC ABG pCO2 POC ABG pO2 ABG pO2 ABG HCO3 ABG O2 Saturation ABG Base Excess ABG Hemoglobin ABG Oxyhemoglobin ABG Sodium ABG Potassium ABG Chloride ABG Glucose Oxyhemoglobin Sodium Potassium Chloride Carbon Dioxide BUN 64 H Creatinine 9.8 H Glucose 147 H POC Glucose 134 H Lactic Acid Calcium 8.3 L Phosphorus 5.00 H Magnesium Total Bilirubin 3.70 H AST 72 H ALT Alkaline Phosphatase 142 H Total Protein 5.1 L D Albumin 2.9 L Triglycerides Arterial Blood Glucose Arterial Blood Ionized Calcium Digoxin Crossmatch 12/27/20 12/27/20 12/28/20 17:29 23:31 03:09 WBC RBC Hgb Hct MCV MCHC RDW Plt Count Lymph % (Auto) [place] % (Auto) Eos % (Auto) Lymph # (Auto) [place] # (Auto) Eos # (Auto) Seg Neutrophils % Seg Neuts % (Manual) Lymphocytes % (Manual) Monocytes % (Manual) Seg Neutrophils # Seg Neutrophils # Man Lymphocytes # (Manual) Monocytes # (Manual) PT INR ABG pH 7.474 H POC ABG pCO2 POC ABG pO2 ABG pO2 ABG HCO3 ABG O2 Saturation ABG Base Excess ABG Hemoglobin 7.8 L ABG Oxyhemoglobin ABG Sodium ABG Potassium ABG Chloride ABG Glucose Oxyhemoglobin Sodium Potassium Chloride Carbon Dioxide BUN Creatinine Glucose POC Glucose 121 H 131 H Lactic Acid Calcium Phosphorus Magnesium Total Bilirubin AST ALT Alkaline Phosphatase Total Protein Albumin Triglycerides Arterial Blood Glucose Arterial Blood Ionized Calcium Digoxin Crossmatch 12/28/20 12/28/20 12/28/20 05:37 05:40 05:40 WBC 4.3 L RBC 2.40 L Hgb 7.2 L Hct 21.5 L MCV MCHC RDW 17.4 H Plt Count 112 L Lymph % (Auto) 6.5 L [place] % (Auto) 16.7 H Eos % (Auto) Lymph # (Auto) 0.3 L [place] # (Auto) Eos # (Auto) Seg Neutrophils % 71.1 H Seg Neuts % (Manual) Lymphocytes % (Manual) Monocytes % (Manual) Seg Neutrophils # Seg Neutrophils # Man Lymphocytes # (Manual) Monocytes # (Manual) PT INR ABG pH POC ABG pCO2 POC ABG pO2 ABG pO2 ABG HCO3 ABG O2 Saturation ABG Base Excess ABG Hemoglobin ABG Oxyhemoglobin ABG Sodium ABG Potassium ABG Chloride ABG Glucose Oxyhemoglobin Sodium Potassium Chloride Carbon Dioxide BUN 85 H Creatinine 11.5 H Glucose 132 H POC Glucose 121 H Lactic Acid Calcium 8.2 L Phosphorus Magnesium 2.40 H Total Bilirubin 3.80 H AST 70 H ALT Alkaline Phosphatase 176 H Total Protein 5.0 L Albumin 2.9 L Triglycerides Arterial Blood Glucose Arterial Blood Ionized Calcium Digoxin Crossmatch 12/28/20 12/28/20 12/28/20 11:34 15:00 17:35 WBC RBC Hgb Hct MCV MCHC RDW Plt Count Lymph % (Auto) [place] % (Auto) Eos % (Auto) Lymph # (Auto) [place] # (Auto) Eos # (Auto) Seg Neutrophils % Seg Neuts % (Manual) Lymphocytes % (Manual) Monocytes % (Manual) Seg Neutrophils # Seg Neutrophils # Man Lymphocytes # (Manual) Monocytes # (Manual) PT INR ABG pH 7.461 H POC ABG pCO2 POC ABG pO2 72.2 L ABG pO2 ABG HCO3 ABG O2 Saturation ABG Base Excess ABG Hemoglobin 8.2 L ABG Oxyhemoglobin 93.6 L ABG Sodium 134.1 L ABG Potassium 3.2 L ABG Chloride ABG Glucose 135 H Oxyhemoglobin Sodium Potassium Chloride Carbon Dioxide BUN Creatinine Glucose POC Glucose 137 H 144 H Lactic Acid Calcium Phosphorus Magnesium Total Bilirubin AST ALT Alkaline Phosphatase Total Protein Albumin Triglycerides Arterial Blood Glucose 135 H Arterial Blood Ionized Calcium 4.4 L Digoxin Crossmatch 12/28/20 12/28/20 12/29/20 19:44 Unknown 00:21 WBC RBC Hgb Hct MCV MCHC RDW Plt Count Lymph % (Auto) [place] % (Auto) Eos % (Auto) Lymph # (Auto) [place] # (Auto) Eos # (Auto) Seg Neutrophils % Seg Neuts % (Manual) Lymphocytes % (Manual) Monocytes % (Manual) Seg Neutrophils # Seg Neutrophils # Man Lymphocytes # (Manual) Monocytes # (Manual) PT INR ABG pH 7.474 H POC ABG pCO2 POC ABG pO2 ABG pO2 ABG HCO3 ABG O2 Saturation ABG Base Excess ABG Hemoglobin 7.8 L ABG Oxyhemoglobin ABG Sodium 133.2 L ABG Potassium ABG Chloride ABG Glucose 139 H Oxyhemoglobin Sodium 135 L Potassium Chloride 96.6 L Carbon Dioxide BUN 47 H Creatinine 7.4 H Glucose 130 H POC Glucose 142 H Lactic Acid Calcium 8.3 L Phosphorus Magnesium Total Bilirubin AST ALT Alkaline Phosphatase Total Protein Albumin Triglycerides Arterial Blood Glucose 139 H Arterial Blood Ionized Calcium 4.3 L Digoxin Crossmatch 12/29/20 12/29/20 12/29/20 05:16 05:16 05:26 WBC RBC 2.53 L Hgb 7.7 L Hct 22.8 L MCV MCHC RDW 17.0 H Plt Count 130 L Lymph % (Auto) [place] % (Auto) Eos % (Auto) Lymph # (Auto) [place] # (Auto) Eos # (Auto) Seg Neutrophils % Seg Neuts % (Manual) 79.0 H Lymphocytes % (Manual) 9.0 L Monocytes % (Manual) Seg Neutrophils # Seg Neutrophils # Man Lymphocytes # (Manual) 0.6 L Monocytes # (Manual) PT INR ABG pH POC ABG pCO2 POC ABG pO2 ABG pO2 ABG HCO3 ABG O2 Saturation ABG Base Excess ABG Hemoglobin ABG Oxyhemoglobin ABG Sodium ABG Potassium ABG Chloride ABG Glucose Oxyhemoglobin Sodium Potassium 3.4 L Chloride 96.6 L Carbon Dioxide BUN 59 H Creatinine 8.3 H Glucose 127 H POC Glucose 141 H Lactic Acid Calcium 8.2 L Phosphorus Magnesium Total Bilirubin 3.00 H AST 88 H ALT Alkaline Phosphatase 188 H Total Protein 5.1 L Albumin 2.8 L Triglycerides Arterial Blood Glucose Arterial Blood Ionized Calcium Digoxin Crossmatch 12/29/20 12/29/20 12/29/20 11:33 17:29 23:22 WBC RBC Hgb Hct MCV MCHC RDW Plt Count Lymph % (Auto) [place] % (Auto) Eos % (Auto) Lymph # (Auto) [place] # (Auto) Eos # (Auto) Seg Neutrophils % Seg Neuts % (Manual) Lymphocytes % (Manual) Monocytes % (Manual) Seg Neutrophils # Seg Neutrophils # Man Lymphocytes # (Manual) Monocytes # (Manual) PT INR ABG pH POC ABG pCO2 POC ABG pO2 ABG pO2 ABG HCO3 ABG O2 Saturation ABG Base Excess ABG Hemoglobin ABG Oxyhemoglobin ABG Sodium ABG Potassium ABG Chloride ABG Glucose Oxyhemoglobin Sodium Potassium Chloride Carbon Dioxide BUN Creatinine Glucose POC Glucose 144 H 130 H 117 H Lactic Acid Calcium Phosphorus Magnesium Total Bilirubin AST ALT Alkaline Phosphatase Total Protein Albumin Triglycerides Arterial Blood Glucose Arterial Blood Ionized Calcium Digoxin Crossmatch 12/30/20 12/30/20 12/30/20 05:23 08:15 09:00 WBC RBC Hgb Hct MCV MCHC RDW Plt Count Lymph % (Auto) [place] % (Auto) Eos % (Auto) Lymph # (Auto) [place] # (Auto) Eos # (Auto) Seg Neutrophils % Seg Neuts % (Manual) Lymphocytes % (Manual) Monocytes % (Manual) Seg Neutrophils # Seg Neutrophils # Man Lymphocytes # (Manual) Monocytes # (Manual) PT INR ABG pH POC ABG pCO2 POC ABG pO2 ABG pO2 ABG HCO3 ABG O2 Saturation ABG Base Excess ABG Hemoglobin ABG Oxyhemoglobin ABG Sodium ABG Potassium ABG Chloride ABG Glucose Oxyhemoglobin Sodium 135 L Potassium Chloride 95.9 L Carbon Dioxide BUN 85 H Creatinine 10.6 H Glucose 128 H POC Glucose 135 H 127 H Lactic Acid Calcium 8.3 L Phosphorus Magnesium Total Bilirubin 2.40 H AST 85 H ALT Alkaline Phosphatase 216 H Total Protein 5.3 L Albumin 2.6 L Triglycerides 155 H Arterial Blood Glucose Arterial Blood Ionized Calcium Digoxin Crossmatch 12/30/20 12/30/20 12/30/20 09:00 11:53 15:49 WBC RBC 2.61 L Hgb 7.8 L Hct 23.7 L MCV MCHC RDW 17.3 H Plt Count Lymph % (Auto) [place] % (Auto) Eos % (Auto) Lymph # (Auto) [place] # (Auto) Eos # (Auto) Seg Neutrophils % Seg Neuts % (Manual) Lymphocytes % (Manual) Monocytes % (Manual) Seg Neutrophils # Seg Neutrophils # Man Lymphocytes # (Manual) Monocytes # (Manual) PT INR ABG pH POC ABG pCO2 POC ABG pO2 ABG pO2 ABG HCO3 ABG O2 Saturation ABG Base Excess ABG Hemoglobin ABG Oxyhemoglobin ABG Sodium ABG Potassium ABG Chloride ABG Glucose Oxyhemoglobin Sodium Potassium Chloride Carbon Dioxide BUN Creatinine Glucose POC Glucose 155 H 146 H Lactic Acid Calcium Phosphorus Magnesium Total Bilirubin AST ALT Alkaline Phosphatase Total Protein Albumin Triglycerides Arterial Blood Glucose Arterial Blood Ionized Calcium Digoxin Crossmatch 12/30/20 12/30/20 12/31/20 17:53 23:45 03:56 WBC RBC Hgb Hct MCV MCHC RDW Plt Count Lymph % (Auto) [place] % (Auto) Eos % (Auto) Lymph # (Auto) [place] # (Auto) Eos # (Auto) Seg Neutrophils % Seg Neuts % (Manual) Lymphocytes % (Manual) Monocytes % (Manual) Seg Neutrophils # Seg Neutrophils # Man Lymphocytes # (Manual) Monocytes # (Manual) PT INR ABG pH POC ABG pCO2 POC ABG pO2 49.4 L ABG pO2 ABG HCO3 ABG O2 Saturation ABG Base Excess ABG Hemoglobin 10.3 L ABG Oxyhemoglobin 84.2 L ABG Sodium 133.1 L ABG Potassium ABG Chloride ABG Glucose 173 H Oxyhemoglobin Sodium Potassium Chloride Carbon Dioxide BUN Creatinine Glucose POC Glucose 139 H 173 H Lactic Acid Calcium Phosphorus Magnesium Total Bilirubin AST ALT Alkaline Phosphatase Total Protein Albumin Triglycerides Arterial Blood Glucose 173 H Arterial Blood Ionized Calcium Digoxin Crossmatch 12/31/20 12/31/20 12/31/20 05:07 06:51 06:51 WBC 20.3 H RBC 3.32 L Hgb 9.8 L Hct 30.3 L D MCV MCHC RDW 17.3 H Plt Count Lymph % (Auto) [place] % (Auto) Eos % (Auto) Lymph # (Auto) [place] # (Auto) Eos # (Auto) Seg Neutrophils % Seg Neuts % (Manual) 87.0 H Lymphocytes % (Manual) 10.0 L Monocytes % (Manual) Seg Neutrophils # Seg Neutrophils # Man 17.7 H Lymphocytes # (Manual) Monocytes # (Manual) PT INR ABG pH POC ABG pCO2 POC ABG pO2 ABG pO2 ABG HCO3 ABG O2 Saturation ABG Base Excess ABG Hemoglobin ABG Oxyhemoglobin ABG Sodium ABG Potassium ABG Chloride ABG Glucose Oxyhemoglobin Sodium Potassium 5.2 H D Chloride Carbon Dioxide BUN 62 H Creatinine 8.4 H Glucose 116 H POC Glucose 120 H Lactic Acid Calcium Phosphorus Magnesium 1.60 L Total Bilirubin AST ALT Alkaline Phosphatase Total Protein Albumin Triglycerides Arterial Blood Glucose Arterial Blood Ionized Calcium Digoxin Crossmatch 12/31/20 12/31/20 12/31/20 09:38 12:19 12:22 WBC RBC Hgb Hct MCV MCHC RDW Plt Count Lymph % (Auto) [place] % (Auto) Eos % (Auto) Lymph # (Auto) [place] # (Auto) Eos # (Auto) Seg Neutrophils % Seg Neuts % (Manual) Lymphocytes % (Manual) Monocytes % (Manual) Seg Neutrophils # Seg Neutrophils # Man Lymphocytes # (Manual) Monocytes # (Manual) PT INR ABG pH POC ABG pCO2 POC ABG pO2 ABG pO2 354.0 H ABG HCO3 ABG O2 Saturation 99.6 H ABG Base Excess ABG Hemoglobin 9.1 L ABG Oxyhemoglobin ABG Sodium ABG Potassium ABG Chloride ABG Glucose Oxyhemoglobin Sodium Potassium 5.2 H Chloride Carbon Dioxide BUN Creatinine Glucose POC Glucose 132 H Lactic Acid Calcium Phosphorus Magnesium Total Bilirubin AST ALT Alkaline Phosphatase Total Protein Albumin Triglycerides Arterial Blood Glucose Arterial Blood Ionized Calcium Digoxin Crossmatch 12/31/20 01/01/21 01/01/21 23:23 03:03 05:04 WBC RBC Hgb Hct MCV MCHC RDW Plt Count Lymph % (Auto) [place] % (Auto) Eos % (Auto) Lymph # (Auto) [place] # (Auto) Eos # (Auto) Seg Neutrophils % Seg Neuts % (Manual) Lymphocytes % (Manual) Monocytes % (Manual) Seg Neutrophils # Seg Neutrophils # Man Lymphocytes # (Manual) Monocytes # (Manual) PT INR ABG pH POC ABG pCO2 POC ABG pO2 79.6 L ABG pO2 ABG HCO3 ABG O2 Saturation ABG Base Excess ABG Hemoglobin 9.2 L ABG Oxyhemoglobin ABG Sodium 131.6 L ABG Potassium 5.8 H ABG Chloride ABG Glucose 177 H Oxyhemoglobin Sodium Potassium Chloride Carbon Dioxide BUN Creatinine Glucose POC Glucose 174 H 167 H Lactic Acid Calcium Phosphorus Magnesium Total Bilirubin AST ALT Alkaline Phosphatase Total Protein Albumin Triglycerides Arterial Blood Glucose 177 H Arterial Blood Ionized Calcium Digoxin Crossmatch 01/01/21 01/01/21 01/01/21 07:31 07:31 11:31 WBC 26.1 H RBC 2.95 L Hgb 8.6 L Hct 27.1 L MCV MCHC RDW 18.2 H Plt Count Lymph % (Auto) [place] % (Auto) Eos % (Auto) Lymph # (Auto) [place] # (Auto) Eos # (Auto) Seg Neutrophils % Seg Neuts % (Manual) 96.0 H Lymphocytes % (Manual) 4.0 L Monocytes % (Manual) Seg Neutrophils # Seg Neutrophils # Man 25.1 H Lymphocytes # (Manual) 1.0 L Monocytes # (Manual) PT INR ABG pH POC ABG pCO2 POC ABG pO2 ABG pO2 ABG HCO3 ABG O2 Saturation ABG Base Excess ABG Hemoglobin ABG Oxyhemoglobin ABG Sodium ABG Potassium ABG Chloride ABG Glucose Oxyhemoglobin Sodium Potassium 6.0 H Chloride Carbon Dioxide 21 L BUN 89 H Creatinine 10.5 H Glucose 179 H POC Glucose Lactic Acid Calcium Phosphorus Magnesium Total Bilirubin AST ALT Alkaline Phosphatase Total Protein Albumin Triglycerides Arterial Blood Glucose Arterial Blood Ionized Calcium Digoxin Crossmatch See Detail 01/01/21 01/01/21 01/01/21 11:51 12:45 16:52 WBC RBC Hgb Hct MCV MCHC RDW Plt Count Lymph % (Auto) [place] % (Auto) Eos % (Auto) Lymph # (Auto) [place] # (Auto) Eos # (Auto) Seg Neutrophils % Seg Neuts % (Manual) Lymphocytes % (Manual) Monocytes % (Manual) Seg Neutrophils # Seg Neutrophils # Man Lymphocytes # (Manual) Monocytes # (Manual) PT 16.9 H INR 1.39 H ABG pH POC ABG pCO2 POC ABG pO2 ABG pO2 ABG HCO3 ABG O2 Saturation ABG Base Excess ABG Hemoglobin ABG Oxyhemoglobin ABG Sodium ABG Potassium ABG Chloride ABG Glucose Oxyhemoglobin Sodium Potassium Chloride Carbon Dioxide BUN Creatinine Glucose POC Glucose 157 H 177 H Lactic Acid Calcium Phosphorus Magnesium Total Bilirubin AST ALT Alkaline Phosphatase Total Protein Albumin Triglycerides Arterial Blood Glucose Arterial Blood Ionized Calcium Digoxin Crossmatch 01/01/21 01/01/21 01/01/21 17:58 17:58 20:12 WBC 26.9 H RBC 3.14 L Hgb 9.3 L Hct 29.6 L MCV MCHC RDW 17.5 H Plt Count Lymph % (Auto) [place] % (Auto) Eos % (Auto) Lymph # (Auto) [place] # (Auto) Eos # (Auto) Seg Neutrophils % Seg Neuts % (Manual) 84.0 H Lymphocytes % (Manual) 4.0 L Monocytes % (Manual) 12.0 H Seg Neutrophils # Seg Neutrophils # Man 22.6 H Lymphocytes # (Manual) 1.1 L Monocytes # (Manual) 3.2 H PT INR ABG pH POC ABG pCO2 POC ABG pO2 ABG pO2 ABG HCO3 ABG O2 Saturation ABG Base Excess ABG Hemoglobin ABG Oxyhemoglobin ABG Sodium ABG Potassium ABG Chloride ABG Glucose Oxyhemoglobin Sodium 136 L Potassium 6.2 H* Chloride Carbon Dioxide 21 L BUN 92 H Creatinine 10.8 H Glucose 171 H POC Glucose 288 H Lactic Acid Calcium Phosphorus Magnesium Total Bilirubin 2.10 H AST 223 H ALT 100 H Alkaline Phosphatase 206 H Total Protein 4.8 L Albumin 1.9 L Triglycerides Arterial Blood Glucose Arterial Blood Ionized Calcium Digoxin Crossmatch 01/02/21 01/02/21 01/02/21 00:12 00:45 03:05 WBC RBC Hgb Hct MCV MCHC RDW Plt Count Lymph % (Auto) [place] % (Auto) Eos % (Auto) Lymph # (Auto) [place] # (Auto) Eos # (Auto) Seg Neutrophils % Seg Neuts % (Manual) Lymphocytes % (Manual) Monocytes % (Manual) Seg Neutrophils # Seg Neutrophils # Man Lymphocytes # (Manual) Monocytes # (Manual) PT INR ABG pH POC ABG pCO2 POC ABG pO2 81.8 L ABG pO2 ABG HCO3 ABG O2 Saturation ABG Base Excess ABG Hemoglobin 8.0 L ABG Oxyhemoglobin ABG Sodium 129.8 L ABG Potassium 5.4 H ABG Chloride ABG Glucose 257 H Oxyhemoglobin Sodium 136 L Potassium 5.8 H Chloride 96.6 L Carbon Dioxide BUN 95 H Creatinine 11.2 H Glucose 238 H POC Glucose 223 H Lactic Acid Calcium Phosphorus Magnesium Total Bilirubin AST ALT Alkaline Phosphatase Total Protein Albumin Triglycerides Arterial Blood Glucose 257 H Arterial Blood Ionized Calcium 4.0 L Digoxin Crossmatch 01/02/21 01/02/21 01/02/21 06:25 08:00 08:00 WBC 17.5 H RBC 2.31 L Hgb 6.7 L Hct 22.1 L D MCV 96 H MCHC 30 L RDW 18.4 H Plt Count Lymph % (Auto) [place] % (Auto) Eos % (Auto) Lymph # (Auto) [place] # (Auto) Eos # (Auto) Seg Neutrophils % Seg Neuts % (Manual) Lymphocytes % (Manual) Monocytes % (Manual) Seg Neutrophils # Seg Neutrophils # Man Lymphocytes # (Manual) Monocytes # (Manual) PT INR ABG pH POC ABG pCO2 POC ABG pO2 ABG pO2 ABG HCO3 ABG O2 Saturation ABG Base Excess ABG Hemoglobin ABG Oxyhemoglobin ABG Sodium ABG Potassium ABG Chloride ABG Glucose Oxyhemoglobin Sodium 134 L Potassium 5.3 H Chloride 92.9 L Carbon Dioxide BUN 101 H Creatinine 10.9 H Glucose 560 H* POC Glucose 239 H Lactic Acid Calcium 7.6 L Phosphorus 6.50 H Magnesium Total Bilirubin AST ALT Alkaline Phosphatase Total Protein Albumin Triglycerides Arterial Blood Glucose Arterial Blood Ionized Calcium Digoxin Crossmatch 01/02/21 01/02/21 01/02/21 11:26 15:00 17:57 WBC RBC Hgb Hct MCV MCHC RDW Plt Count Lymph % (Auto) [place] % (Auto) Eos % (Auto) Lymph # (Auto) [place] # (Auto) Eos # (Auto) Seg Neutrophils % Seg Neuts % (Manual) Lymphocytes % (Manual) Monocytes % (Manual) Seg Neutrophils # Seg Neutrophils # Man Lymphocytes # (Manual) Monocytes # (Manual) PT INR ABG pH POC ABG pCO2 POC ABG pO2 ABG pO2 ABG HCO3 ABG O2 Saturation ABG Base Excess ABG Hemoglobin ABG Oxyhemoglobin ABG Sodium ABG Potassium ABG Chloride ABG Glucose Oxyhemoglobin Sodium Potassium Chloride Carbon Dioxide BUN Creatinine Glucose 241 H POC Glucose 205 H 272 H Lactic Acid Calcium Phosphorus Magnesium Total Bilirubin AST ALT Alkaline Phosphatase Total Protein Albumin Triglycerides Arterial Blood Glucose Arterial Blood Ionized Calcium Digoxin Crossmatch 01/02/21 01/02/21 01/03/21 23:25 23:43 03:45 WBC RBC Hgb Hct MCV MCHC RDW Plt Count Lymph % (Auto) [place] % (Auto) Eos % (Auto) Lymph # (Auto) [place] # (Auto) Eos # (Auto) Seg Neutrophils % Seg Neuts % (Manual) Lymphocytes % (Manual) Monocytes % (Manual) Seg Neutrophils # Seg Neutrophils # Man Lymphocytes # (Manual) Monocytes # (Manual) PT INR ABG pH POC ABG pCO2 48.3 H POC ABG pO2 134.4 H 79.7 L ABG pO2 ABG HCO3 ABG O2 Saturation ABG Base Excess ABG Hemoglobin 7.7 L 8.6 L ABG Oxyhemoglobin ABG Sodium 131.8 L 130.4 L ABG Potassium ABG Chloride 97.0 L ABG Glucose 218 H 238 H Oxyhemoglobin Sodium Potassium Chloride Carbon Dioxide BUN Creatinine Glucose POC Glucose 218 H Lactic Acid Calcium Phosphorus Magnesium Total Bilirubin AST ALT Alkaline Phosphatase Total Protein Albumin Triglycerides Arterial Blood Glucose 218 H 238 H Arterial Blood Ionized Calcium 4.1 L 4.0 L Digoxin Crossmatch 01/03/21 01/03/2101/03/21 04:37 04:37 05:39 WBC 15.2 H RBC 2.38 L Hgb 7.3 L Hct 21.6 L MCV MCHC RDW 16.6 H Plt Count Lymph % (Auto) [place] % (Auto) Eos % (Auto) Lymph # (Auto) [place] # (Auto) Eos # (Auto) Seg Neutrophils % Seg Neuts % (Manual) Lymphocytes % (Manual) Monocytes % (Manual) Seg Neutrophils # Seg Neutrophils # Man Lymphocytes # (Manual) Monocytes # (Manual) PT INR ABG pH POC ABG pCO2 POC ABG pO2 ABG pO2 ABG HCO3 ABG O2 Saturation ABG Base Excess ABG Hemoglobin ABG Oxyhemoglobin ABG Sodium ABG Potassium ABG Chloride ABG Glucose Oxyhemoglobin Sodium 136 L Potassium Chloride 94.5 L Carbon Dioxide BUN 69 H Creatinine 8.0 H Glucose 219 H POC Glucose 222 H Lactic Acid Calcium 7.8 L Phosphorus 4.80 H D Magnesium Total Bilirubin AST ALT Alkaline Phosphatase Total Protein Albumin Triglycerides Arterial Blood Glucose Arterial Blood Ionized Calcium Digoxin Crossmatch 01/03/21 01/03/21 01/03/21 11:29 18:49 23:37 WBC RBC Hgb Hct MCV MCHC RDW Plt Count Lymph % (Auto) [place] % (Auto) Eos % (Auto) Lymph # (Auto) [place] # (Auto) Eos # (Auto) Seg Neutrophils % Seg Neuts % (Manual) Lymphocytes % (Manual) Monocytes % (Manual) Seg Neutrophils # Seg Neutrophils # Man Lymphocytes # (Manual) Monocytes # (Manual) PT INR ABG pH POC ABG pCO2 POC ABG pO2 ABG pO2 ABG HCO3 ABG O2 Saturation ABG Base Excess ABG Hemoglobin ABG Oxyhemoglobin ABG Sodium ABG Potassium ABG Chloride ABG Glucose Oxyhemoglobin Sodium Potassium Chloride Carbon Dioxide BUN Creatinine Glucose POC Glucose 232 H 129 H 140 H Lactic Acid Calcium Phosphorus Magnesium Total Bilirubin AST ALT Alkaline Phosphatase Total Protein Albumin Triglycerides Arterial Blood Glucose Arterial Blood Ionized Calcium Digoxin Crossmatch 01/04/21 01/04/21 01/04/21 03:22 04:38 04:38 WBC 11.1 H RBC 2.89 L Hgb 8.9 L Hct 26.2 L MCV MCHC RDW 16.1 H Plt Count Lymph % (Auto) [place] % (Auto) Eos % (Auto) Lymph # (Auto) [place] # (Auto) Eos # (Auto) Seg Neutrophils % Seg Neuts % (Manual) Lymphocytes % (Manual) Monocytes % (Manual) Seg Neutrophils # Seg Neutrophils # Man Lymphocytes # (Manual) Monocytes # (Manual) PT INR ABG pH POC ABG pCO2 POC ABG pO2 82.3 L ABG pO2 ABG HCO3 ABG O2 Saturation ABG Base Excess ABG Hemoglobin 8.9 L ABG Oxyhemoglobin ABG Sodium 130.5 L ABG Potassium ABG Chloride ABG Glucose 124 H Oxyhemoglobin Sodium Potassium Chloride 95.5 L Carbon Dioxide BUN 87 H Creatinine 9.7 H Glucose 118 H POC Glucose Lactic Acid Calcium 7.7 L Phosphorus Magnesium Total Bilirubin AST ALT Alkaline Phosphatase Total Protein Albumin Triglycerides Arterial Blood Glucose 124 H Arterial Blood Ionized Calcium 3.5 L Digoxin Crossmatch 01/04/21 01/04/21 01/04/21 05:39 12:04 18:04 WBC RBC Hgb Hct MCV MCHC RDW Plt Count Lymph % (Auto) [place] % (Auto) Eos % (Auto) Lymph # (Auto) [place] # (Auto) Eos # (Auto) Seg Neutrophils % Seg Neuts % (Manual) Lymphocytes % (Manual) Monocytes % (Manual) Seg Neutrophils # Seg Neutrophils # Man Lymphocytes # (Manual) Monocytes # (Manual) PT INR ABG pH POC ABG pCO2 POC ABG pO2 ABG pO2 ABG HCO3 ABG O2 Saturation ABG Base Excess ABG Hemoglobin ABG Oxyhemoglobin ABG Sodium ABG Potassium ABG Chloride ABG Glucose Oxyhemoglobin Sodium Potassium Chloride Carbon Dioxide BUN Creatinine Glucose POC Glucose 134 H 125 H 131 H Lactic Acid Calcium Phosphorus Magnesium Total Bilirubin AST ALT Alkaline Phosphatase Total Protein Albumin Triglycerides Arterial Blood Glucose Arterial Blood Ionized Calcium Digoxin Crossmatch 01/04/21 01/05/21 01/05/21 23:41 03:23 04:49 WBC RBC Hgb Hct MCV MCHC RDW Plt Count Lymph % (Auto) [place] % (Auto) Eos % (Auto) Lymph # (Auto) [place] # (Auto) Eos # (Auto) Seg Neutrophils % Seg Neuts % (Manual) Lymphocytes % (Manual) Monocytes % (Manual) Seg Neutrophils # Seg Neutrophils # Man Lymphocytes # (Manual) Monocytes # (Manual) PT INR ABG pH POC ABG pCO2 POC ABG pO2 62.8 L ABG pO2 ABG HCO3 ABG O2 Saturation ABG Base Excess ABG Hemoglobin 9.5 L ABG Oxyhemoglobin 92.0 L ABG Sodium 130.1 L ABG Potassium ABG Chloride ABG Glucose 148 H Oxyhemoglobin Sodium Potassium Chloride 96.9 L Carbon Dioxide BUN 57 H Creatinine 6.7 H Glucose 135 H POC Glucose 132 H Lactic Acid Calcium 8.0 L Phosphorus Magnesium Total Bilirubin AST ALT Alkaline Phosphatase Total Protein Albumin Triglycerides Arterial Blood Glucose 148 H Arterial Blood Ionized Calcium 4.1 L Digoxin Crossmatch 01/05/21 01/05/21 01/05/21 05:04 11:48 12:39 WBC RBC 3.03 L Hgb 9.3 L Hct 27.6 L MCV MCHC RDW 16.5 H Plt Count Lymph % (Auto) [place] % (Auto) Eos % (Auto) Lymph # (Auto) [place] # (Auto) Eos # (Auto) Seg Neutrophils % Seg Neuts % (Manual) Lymphocytes % (Manual) Monocytes % (Manual) Seg Neutrophils # Seg Neutrophils # Man Lymphocytes # (Manual) Monocytes # (Manual) PT INR ABG pH POC ABG pCO2 POC ABG pO2 ABG pO2 ABG HCO3 ABG O2 Saturation ABG Base Excess ABG Hemoglobin ABG Oxyhemoglobin ABG Sodium ABG Potassium ABG Chloride ABG Glucose Oxyhemoglobin Sodium Potassium Chloride Carbon Dioxide BUN Creatinine Glucose POC Glucose 147 H 162 H Lactic Acid Calcium Phosphorus Magnesium Total Bilirubin AST ALT Alkaline Phosphatase Total Protein Albumin Triglycerides Arterial Blood Glucose Arterial Blood Ionized Calcium Digoxin Crossmatch 01/05/21 01/05/21 01/06/21 17:50 23:32 04:15 WBC RBC Hgb Hct MCV MCHC RDW Plt Count Lymph % (Auto) [place] % (Auto) Eos % (Auto) Lymph # (Auto) [place] # (Auto) Eos # (Auto) Seg Neutrophils % Seg Neuts % (Manual) Lymphocytes % (Manual) Monocytes % (Manual) Seg Neutrophils # Seg Neutrophils # Man Lymphocytes # (Manual) Monocytes # (Manual) PT INR ABG pH POC ABG pCO2 POC ABG pO2 ABG pO2 191.0 H ABG HCO3 ABG O2 Saturation 99.2 H ABG Base Excess ABG Hemoglobin 9.0 L ABG Oxyhemoglobin ABG Sodium ABG Potassium ABG Chloride ABG Glucose Oxyhemoglobin Sodium Potassium Chloride Carbon Dioxide BUN Creatinine Glucose POC Glucose 155 H 115 H Lactic Acid Calcium Phosphorus Magnesium Total Bilirubin AST ALT Alkaline Phosphatase Total Protein Albumin Triglycerides Arterial Blood Glucose Arterial Blood Ionized Calcium Digoxin Crossmatch 01/06/21 01/06/21 01/06/21 04:45 05:56 07:03 WBC RBC 2.95 L Hgb 9.1 L Hct 26.8 L MCV MCHC RDW 16.8 H Plt Count Lymph % (Auto) [place] % (Auto) Eos % (Auto) Lymph # (Auto) [place] # (Auto) Eos # (Auto) Seg Neutrophils % Seg Neuts % (Manual) Lymphocytes % (Manual) Monocytes % (Manual) Seg Neutrophils # Seg Neutrophils # Man Lymphocytes # (Manual) Monocytes # (Manual) PT INR ABG pH POC ABG pCO2 POC ABG pO2 ABG pO2 ABG HCO3 ABG O2 Saturation ABG Base Excess ABG Hemoglobin ABG Oxyhemoglobin ABG Sodium ABG Potassium ABG Chloride ABG Glucose Oxyhemoglobin Sodium 135 L Potassium Chloride 95.9 L Carbon Dioxide BUN 82 H Creatinine 8.7 H Glucose 127 H POC Glucose 136 H Lactic Acid Calcium 8.3 L Phosphorus Magnesium Total Bilirubin AST ALT Alkaline Phosphatase Total Protein Albumin Triglycerides Arterial Blood Glucose Arterial Blood Ionized Calcium Digoxin Crossmatch 01/06/21 01/06/21 01/06/21 07:10 11:04 13:38 WBC RBC Hgb Hct MCV MCHC RDW Plt Count Lymph % (Auto) [place] % (Auto) Eos % (Auto) Lymph # (Auto) [place] # (Auto) Eos # (Auto) Seg Neutrophils % Seg Neuts % (Manual) Lymphocytes % (Manual) Monocytes % (Manual) Seg Neutrophils # Seg Neutrophils # Man Lymphocytes # (Manual) Monocytes # (Manual) PT INR ABG pH POC ABG pCO2 POC ABG pO2 ABG pO2 ABG HCO3 ABG O2 Saturation ABG Base Excess ABG Hemoglobin ABG Oxyhemoglobin ABG Sodium ABG Potassium ABG Chloride ABG Glucose Oxyhemoglobin Sodium Potassium Chloride Carbon Dioxide BUN Creatinine Glucose POC Glucose 178 H 155 H Lactic Acid Calcium Phosphorus Magnesium Total Bilirubin AST ALT Alkaline Phosphatase Total Protein Albumin Triglycerides Arterial Blood Glucose Arterial Blood Ionized Calcium Digoxin Crossmatch See Detail 01/06/21 01/06/21 01/07/21 17:35 22:21 03:07 WBC RBC Hgb Hct MCV MCHC RDW Plt Count Lymph % (Auto) [place] % (Auto) Eos % (Auto) Lymph # (Auto) [place] # (Auto) Eos # (Auto) Seg Neutrophils % Seg Neuts % (Manual) Lymphocytes % (Manual) Monocytes % (Manual) Seg Neutrophils # Seg Neutrophils # Man Lymphocytes # (Manual) Monocytes # (Manual) PT INR ABG pH POC ABG pCO2 POC ABG pO2 ABG pO2 ABG HCO3 ABG O2 Saturation ABG Base Excess ABG Hemoglobin 11.9 L ABG Oxyhemoglobin ABG Sodium 135.6 L ABG Potassium ABG Chloride ABG Glucose 181 H Oxyhemoglobin Sodium Potassium Chloride Carbon Dioxide BUN Creatinine Glucose POC Glucose 138 H 202 H Lactic Acid Calcium Phosphorus Magnesium Total Bilirubin AST ALT Alkaline Phosphatase Total Protein Albumin Triglycerides Arterial Blood Glucose 181 H Arterial Blood Ionized Calcium 4.3 L Digoxin Crossmatch 01/07/21 01/07/21 01/07/21 04:50 05:21 08:37 WBC 12.4 H RBC Hgb 11.1 L Hct 33.3 L D MCV MCHC RDW 17.0 H Plt Count Lymph % (Auto) 3.2 L [place] % (Auto) 9.4 H Eos % (Auto) Lymph # (Auto) 0.4 L [place] # (Auto) 1.2 H Eos # (Auto) Seg Neutrophils % 86.6 H Seg Neuts % (Manual) Lymphocytes % (Manual) Monocytes % (Manual) Seg Neutrophils # 10.7 H Seg Neutrophils # Man Lymphocytes # (Manual) Monocytes # (Manual) PT INR ABG pH POC ABG pCO2 POC ABG pO2 ABG pO2 ABG HCO3 ABG O2 Saturation ABG Base Excess ABG Hemoglobin ABG Oxyhemoglobin ABG Sodium ABG Potassium ABG Chloride ABG Glucose Oxyhemoglobin Sodium Potassium Chloride Carbon Dioxide BUN 60 H Creatinine 6.3 H Glucose 154 H POC Glucose 177 H Lactic Acid Calcium 8.3 L Phosphorus Magnesium Total Bilirubin AST ALT Alkaline Phosphatase Total Protein Albumin Triglycerides Arterial Blood Glucose Arterial Blood Ionized Calcium Digoxin Crossmatch 01/07/21 01/07/21 01/07/21 11:21 12:19 17:11 WBC RBC Hgb Hct MCV MCHC RDW Plt Count Lymph % (Auto) [place] % (Auto) Eos % (Auto) Lymph # (Auto) [place] # (Auto) Eos # (Auto) Seg Neutrophils % Seg Neuts % (Manual) Lymphocytes % (Manual) Monocytes % (Manual) Seg Neutrophils # Seg Neutrophils # Man Lymphocytes # (Manual) Monocytes # (Manual) PT INR ABG pH POC ABG pCO2 POC ABG pO2 ABG pO2 ABG HCO3 ABG O2 Saturation ABG Base Excess ABG Hemoglobin ABG Oxyhemoglobin ABG Sodium ABG Potassium ABG Chloride ABG Glucose Oxyhemoglobin Sodium Potassium Chloride Carbon Dioxide BUN Creatinine Glucose POC Glucose 144 H 137 H 119 H Lactic Acid Calcium Phosphorus Magnesium Total Bilirubin AST ALT Alkaline Phosphatase Total Protein Albumin Triglycerides Arterial Blood Glucose Arterial Blood Ionized Calcium Digoxin Crossmatch 01/07/21 01/07/21 01/08/21 17:14 23:39 04:34 WBC RBC Hgb Hct MCV MCHC RDW Plt Count Lymph % (Auto) [place] % (Auto) Eos % (Auto) Lymph # (Auto) [place] # (Auto) Eos # (Auto) Seg Neutrophils % Seg Neuts % (Manual) Lymphocytes % (Manual) Monocytes % (Manual) Seg Neutrophils # Seg Neutrophils # Man Lymphocytes # (Manual) Monocytes # (Manual) PT INR ABG pH 7.345 L POC ABG pCO2 POC ABG pO2 ABG pO2 67.4 L ABG HCO3 ABG O2 Saturation 94.3 L ABG Base Excess -3.9 L ABG Hemoglobin 8.9 L ABG Oxyhemoglobin ABG Sodium ABG Potassium ABG Chloride ABG Glucose Oxyhemoglobin 92.3 L Sodium Potassium Chloride Carbon Dioxide 20 L BUN 93 H Creatinine 8.8 H Glucose 120 H POC Glucose 129 H Lactic Acid Calcium Phosphorus Magnesium Total Bilirubin AST ALT Alkaline Phosphatase 133 H Total Protein 5.4 L Albumin 1.9 L Triglycerides Arterial Blood Glucose Arterial Blood Ionized Calcium Digoxin Crossmatch 01/08/21 01/08/21 01/08/21 05:26 11:38 17:19 WBC RBC Hgb Hct MCV MCHC RDW Plt Count Lymph % (Auto) [place] % (Auto) Eos % (Auto) Lymph # (Auto) [place] # (Auto) Eos # (Auto) Seg Neutrophils % Seg Neuts % (Manual) Lymphocytes % (Manual) Monocytes % (Manual) Seg Neutrophils # Seg Neutrophils # Man Lymphocytes # (Manual) Monocytes # (Manual) PT INR ABG pH POC ABG pCO2 POC ABG pO2 ABG pO2 ABG HCO3 ABG O2 Saturation ABG Base Excess ABG Hemoglobin ABG Oxyhemoglobin ABG Sodium ABG Potassium ABG Chloride ABG Glucose Oxyhemoglobin Sodium Potassium Chloride Carbon Dioxide BUN Creatinine Glucose POC Glucose 125 H 146 H 136 H Lactic Acid Calcium Phosphorus Magnesium Total Bilirubin AST ALT Alkaline Phosphatase Total Protein Albumin Triglycerides Arterial Blood Glucose Arterial Blood Ionized Calcium Digoxin Crossmatch 01/08/21 01/09/21 01/09/21 23:52 05:13 05:21 WBC RBC Hgb Hct MCV MCHC RDW Plt Count Lymph % (Auto) [place] % (Auto) Eos % (Auto) Lymph # (Auto) [place] # (Auto) Eos # (Auto) Seg Neutrophils % Seg Neuts % (Manual) Lymphocytes % (Manual) Monocytes % (Manual) Seg Neutrophils # Seg Neutrophils # Man Lymphocytes # (Manual) Monocytes # (Manual) PT INR ABG pH POC ABG pCO2 POC ABG pO2 ABG pO2 ABG HCO3 ABG O2 Saturation ABG Base Excess ABG Hemoglobin ABG Oxyhemoglobin ABG Sodium ABG Potassium ABG Chloride ABG Glucose Oxyhemoglobin Sodium Potassium Chloride Carbon Dioxide 16 L BUN 123 H Creatinine 10.8 H Glucose 145 H POC Glucose 143 H 144 H Lactic Acid Calcium Phosphorus 5.00 H D Magnesium 2.40 H Total Bilirubin AST ALT Alkaline Phosphatase Total Protein Albumin Triglycerides Arterial Blood Glucose Arterial Blood Ionized Calcium Digoxin Crossmatch 01/09/21 01/09/21 01/09/21 12:08 17:20 23:56 WBC RBC Hgb Hct MCV MCHC RDW Plt Count Lymph % (Auto) [place] % (Auto) Eos % (Auto) Lymph # (Auto) [place] # (Auto) Eos # (Auto) Seg Neutrophils % Seg Neuts % (Manual) Lymphocytes % (Manual) Monocytes % (Manual) Seg Neutrophils # Seg Neutrophils # Man Lymphocytes # (Manual) Monocytes # (Manual) PT INR ABG pH POC ABG pCO2 POC ABG pO2 ABG pO2 ABG HCO3 ABG O2 Saturation ABG Base Excess ABG Hemoglobin ABG Oxyhemoglobin ABG Sodium ABG Potassium ABG Chloride ABG Glucose Oxyhemoglobin Sodium Potassium Chloride Carbon Dioxide BUN Creatinine Glucose POC Glucose 153 H 160 H 158 H Lactic Acid Calcium Phosphorus Magnesium Total Bilirubin AST ALT Alkaline Phosphatase Total Protein Albumin Triglycerides Arterial Blood Glucose Arterial Blood Ionized Calcium Digoxin Crossmatch 01/10/21 01/10/21 01/10/21 04:52 05:44 07:41 WBC RBC Hgb Hct MCV MCHC RDW Plt Count Lymph % (Auto) [place] % (Auto) Eos % (Auto) Lymph # (Auto) [place] # (Auto) Eos # (Auto) Seg Neutrophils % Seg Neuts % (Manual) Lymphocytes % (Manual) Monocytes % (Manual) Seg Neutrophils # Seg Neutrophils # Man Lymphocytes # (Manual) Monocytes # (Manual) PT INR ABG pH POC ABG pCO2 POC ABG pO2 ABG pO2 ABG HCO3 ABG O2 Saturation ABG Base Excess ABG Hemoglobin ABG Oxyhemoglobin ABG Sodium ABG Potassium ABG Chloride ABG Glucose Oxyhemoglobin Sodium 135 L Potassium 3.5 L D Chloride 95.0 L Carbon Dioxide 21 L BUN 93 H Creatinine 8.3 H Glucose 127 H POC Glucose 135 H 157 H Lactic Acid Calcium Phosphorus Magnesium Total Bilirubin AST ALT Alkaline Phosphatase Total Protein Albumin Triglycerides Arterial Blood Glucose Arterial Blood Ionized Calcium Digoxin Crossmatch 01/10/21 01/10/21 01/10/21 09:26 12:03 17:44 WBC 18.2 H RBC 3.14 L Hgb 9.7 L Hct 28.2 L MCV MCHC RDW 16.5 H Plt Count Lymph % (Auto) [place] % (Auto) Eos % (Auto) Lymph # (Auto) [place] # (Auto) Eos # (Auto) Seg Neutrophils % Seg Neuts % (Manual) 95.0 H Lymphocytes % (Manual) 3.0 L Monocytes % (Manual) Seg Neutrophils # Seg Neutrophils # Man 17.3 H Lymphocytes # (Manual) 0.5 L Monocytes # (Manual) PT INR ABG pH POC ABG pCO2 POC ABG pO2 ABG pO2 ABG HCO3 ABG O2 Saturation ABG Base Excess ABG Hemoglobin ABG Oxyhemoglobin ABG Sodium ABG Potassium ABG Chloride ABG Glucose Oxyhemoglobin Sodium Potassium Chloride Carbon Dioxide BUN Creatinine Glucose POC Glucose 163 H 171 H Lactic Acid Calcium Phosphorus Magnesium Total Bilirubin AST ALT Alkaline Phosphatase Total Protein Albumin Triglycerides Arterial Blood Glucose Arterial Blood Ionized Calcium Digoxin Crossmatch 01/10/21 01/11/21 01/11/21 23:50 05:18 05:18 WBC RBC Hgb Hct MCV MCHC RDW Plt Count Lymph % (Auto) [place] % (Auto) Eos % (Auto) Lymph # (Auto) [place] # (Auto) Eos # (Auto) Seg Neutrophils % Seg Neuts % (Manual) Lymphocytes % (Manual) Monocytes % (Manual) Seg Neutrophils # Seg Neutrophils # Man Lymphocytes # (Manual) Monocytes # (Manual) PT INR ABG pH POC ABG pCO2 POC ABG pO2 ABG pO2 ABG HCO3 ABG O2 Saturation ABG Base Excess ABG Hemoglobin ABG Oxyhemoglobin ABG Sodium ABG Potassium ABG Chloride ABG Glucose Oxyhemoglobin Sodium 136 L Potassium Chloride 94.6 L Carbon Dioxide 19 L BUN 145 H Creatinine 10.6 H Glucose 152 H POC Glucose 151 H Lactic Acid Calcium Phosphorus 6.00 H D Magnesium Total Bilirubin AST ALT Alkaline Phosphatase Total Protein Albumin Triglycerides Arterial Blood Glucose Arterial Blood Ionized Calcium Digoxin 0.8 L Crossmatch 01/11/21 01/11/21 01/11/21 05:18 05:19 11:28 WBC 17.4 H RBC 3.34 L Hgb 10.2 L Hct 29.7 L MCV MCHC RDW 15.9 H Plt Count Lymph % (Auto) [place] % (Auto) Eos % (Auto) Lymph # (Auto) [place] # (Auto) Eos # (Auto) Seg Neutrophils % Seg Neuts % (Manual) Lymphocytes % (Manual) Monocytes % (Manual) Seg Neutrophils # Seg Neutrophils # Man Lymphocytes # (Manual) Monocytes # (Manual) PT INR ABG pH POC ABG pCO2 POC ABG pO2 ABG pO2 ABG HCO3 ABG O2 Saturation ABG Base Excess ABG Hemoglobin ABG Oxyhemoglobin ABG Sodium ABG Potassium ABG Chloride ABG Glucose Oxyhemoglobin Sodium Potassium Chloride Carbon Dioxide BUN Creatinine Glucose POC Glucose 149 H 178 H Lactic Acid Calcium Phosphorus Magnesium Total Bilirubin AST ALT Alkaline Phosphatase Total Protein Albumin Triglycerides Arterial Blood Glucose Arterial Blood Ionized Calcium Digoxin Crossmatch 01/11/21 01/11/21 01/12/21 17:31 23:14 05:18 WBC RBC Hgb Hct MCV MCHC RDW Plt Count Lymph % (Auto) [place] % (Auto) Eos % (Auto) Lymph # (Auto) [place] # (Auto) Eos # (Auto) Seg Neutrophils % Seg Neuts % (Manual) Lymphocytes % (Manual) Monocytes % (Manual) Seg Neutrophils # Seg Neutrophils # Man Lymphocytes # (Manual) Monocytes # (Manual) PT INR ABG pH POC ABG pCO2 POC ABG pO2 ABG pO2 ABG HCO3 ABG O2 Saturation ABG Base Excess ABG Hemoglobin ABG Oxyhemoglobin ABG Sodium ABG Potassium ABG Chloride ABG Glucose Oxyhemoglobin Sodium Potassium Chloride Carbon Dioxide BUN Creatinine Glucose POC Glucose 158 H 145 H 148 H Lactic Acid Calcium Phosphorus Magnesium Total Bilirubin AST ALT Alkaline Phosphatase Total Protein Albumin Triglycerides Arterial Blood Glucose Arterial Blood Ionized Calcium Digoxin Crossmatch 01/12/21 01/12/21 01/12/21 06:50 10:45 13:34 WBC RBC Hgb Hct MCV MCHC RDW Plt Count Lymph % (Auto) [place] % (Auto) Eos % (Auto) Lymph # (Auto) [place] # (Auto) Eos # (Auto) Seg Neutrophils % Seg Neuts % (Manual) Lymphocytes % (Manual) Monocytes % (Manual) Seg Neutrophils # Seg Neutrophils # Man Lymphocytes # (Manual) Monocytes # (Manual) PT INR ABG pH POC ABG pCO2 POC ABG pO2 ABG pO2 ABG HCO3 ABG O2 Saturation ABG Base Excess ABG Hemoglobin ABG Oxyhemoglobin ABG Sodium ABG Potassium ABG Chloride ABG Glucose Oxyhemoglobin Sodium Potassium 2.9 L* D Chloride 94.8 L Carbon Dioxide BUN 102 H Creatinine 8.3 H Glucose 139 H POC Glucose 151 H 134 H Lactic Acid Calcium 8.1 L Phosphorus 5.00 H Magnesium Total Bilirubin AST ALT Alkaline Phosphatase Total Protein Albumin Triglycerides Arterial Blood Glucose Arterial Blood Ionized Calcium Digoxin Crossmatch 01/12/21 01/12/21 01/13/21 16:59 23:06 03:45 WBC RBC Hgb Hct MCV MCHC RDW Plt Count Lymph % (Auto) [place] % (Auto) Eos % (Auto) Lymph # (Auto) [place] # (Auto) Eos # (Auto) Seg Neutrophils % Seg Neuts % (Manual) Lymphocytes % (Manual) Monocytes % (Manual) Seg Neutrophils # Seg Neutrophils # Man Lymphocytes # (Manual) Monocytes # (Manual) PT INR ABG pH POC ABG pCO2 POC ABG pO2 ABG pO2 ABG HCO3 ABG O2 Saturation ABG Base Excess ABG Hemoglobin ABG Oxyhemoglobin ABG Sodium ABG Potassium ABG Chloride ABG Glucose Oxyhemoglobin Sodium 136 L Potassium 3.4 L Chloride 92.6 L Carbon Dioxide BUN 134 H Creatinine 10.4 H Glucose 126 H POC Glucose 108 H 135 H Lactic Acid Calcium 8.3 L Phosphorus 5.60 H Magnesium 1.50 L Total Bilirubin AST ALT Alkaline Phosphatase Total Protein Albumin Triglycerides Arterial Blood Glucose Arterial Blood Ionized Calcium Digoxin Crossmatch 01/13/21 01/13/21 01/13/21 03:45 05:55 11:59 WBC 17.6 H RBC 3.33 L Hgb 10.2 L Hct 29.5 L MCV MCHC 35 H RDW 15.5 H Plt Count Lymph % (Auto) 4.4 L [place] % (Auto) 10.3 H Eos % (Auto) Lymph # (Auto) 0.8 L [place] # (Auto) 1.8 H Eos # (Auto) Seg Neutrophils % 84.2 H Seg Neuts % (Manual) Lymphocytes % (Manual) Monocytes % (Manual) Seg Neutrophils # 14.8 H Seg Neutrophils # Man Lymphocytes # (Manual) Monocytes # (Manual) PT INR ABG pH POC ABG pCO2 POC ABG pO2 ABG pO2 ABG HCO3 ABG O2 Saturation ABG Base Excess ABG Hemoglobin ABG Oxyhemoglobin ABG Sodium ABG Potassium ABG Chloride ABG Glucose Oxyhemoglobin Sodium Potassium Chloride Carbon Dioxide BUN Creatinine Glucose POC Glucose 134 H 141 H Lactic Acid Calcium Phosphorus Magnesium Total Bilirubin AST ALT Alkaline Phosphatase Total Protein Albumin Triglycerides Arterial Blood Glucose Arterial Blood Ionized Calcium Digoxin Crossmatch 01/13/21 01/14/21 01/14/21 23:09 05:39 05:57 WBC RBC Hgb Hct MCV MCHC RDW Plt Count Lymph % (Auto) [place] % (Auto) Eos % (Auto) Lymph # (Auto) [place] # (Auto) Eos # (Auto) Seg Neutrophils % Seg Neuts % (Manual) Lymphocytes % (Manual) Monocytes % (Manual) Seg Neutrophils # Seg Neutrophils # Man Lymphocytes # (Manual) Monocytes # (Manual) PT INR ABG pH POC ABG pCO2 POC ABG pO2 ABG pO2 ABG HCO3 ABG O2 Saturation ABG Base Excess ABG Hemoglobin ABG Oxyhemoglobin ABG Sodium ABG Potassium ABG Chloride ABG Glucose Oxyhemoglobin Sodium Potassium Chloride 97.6 L Carbon Dioxide BUN 81 H Creatinine 7.6 H Glucose 193 H POC Glucose 106 H 190 H Lactic Acid Calcium 8.2 L Phosphorus 4.60 H Magnesium Total Bilirubin AST ALT Alkaline Phosphatase Total Protein Albumin Triglycerides Arterial Blood Glucose Arterial Blood Ionized Calcium Digoxin Crossmatch 01/14/21 01/14/21 01/14/21 10:00 16:56 16:59 WBC 17.0 H RBC 3.10 L Hgb 9.6 L Hct 27.4 L MCV MCHC 35 H RDW 15.6 H Plt Count Lymph % (Auto) [place] % (Auto) Eos % (Auto) Lymph # (Auto) [place] # (Auto) Eos # (Auto) Seg Neutrophils % Seg Neuts % (Manual) Lymphocytes % (Manual) Monocytes % (Manual) Seg Neutrophils # Seg Neutrophils # Man Lymphocytes # (Manual) Monocytes # (Manual) PT INR ABG pH POC ABG pCO2 POC ABG pO2 ABG pO2 ABG HCO3 ABG O2 Saturation ABG Base Excess ABG Hemoglobin ABG Oxyhemoglobin ABG Sodium ABG Potassium ABG Chloride ABG Glucose Oxyhemoglobin Sodium Potassium Chloride Carbon Dioxide BUN Creatinine Glucose POC Glucose 37 L 34 L Lactic Acid Calcium Phosphorus Magnesium Total Bilirubin AST ALT Alkaline Phosphatase Total Protein Albumin Triglycerides Arterial Blood Glucose Arterial Blood Ionized Calcium Digoxin Crossmatch 01/14/21 01/14/21 01/14/21 17:02 18:34 23:17 WBC RBC Hgb Hct MCV MCHC RDW Plt Count Lymph % (Auto) [place] % (Auto) Eos % (Auto) Lymph # (Auto) [place] # (Auto) Eos # (Auto) Seg Neutrophils % Seg Neuts % (Manual) Lymphocytes % (Manual) Monocytes % (Manual) Seg Neutrophils # Seg Neutrophils # Man Lymphocytes # (Manual) Monocytes # (Manual) PT INR ABG pH POC ABG pCO2 POC ABG pO2 ABG pO2 ABG HCO3 ABG O2 Saturation ABG Base Excess ABG Hemoglobin ABG Oxyhemoglobin ABG Sodium ABG Potassium ABG Chloride ABG Glucose Oxyhemoglobin Sodium Potassium Chloride Carbon Dioxide BUN Creatinine Glucose POC Glucose 35 L 143 H 53 L Lactic Acid Calcium Phosphorus Magnesium Total Bilirubin AST ALT Alkaline Phosphatase Total Protein Albumin Triglycerides Arterial Blood Glucose Arterial Blood Ionized Calcium Digoxin Crossmatch 01/15/21 01/15/21 01/15/21 00:34 04:00 04:00 WBC 15.9 H RBC 3.02 L Hgb 9.3 L Hct 27.3 L MCV MCHC RDW 15.6 H Plt Count Lymph % (Auto) [place] % (Auto) Eos % (Auto) Lymph # (Auto) [place] # (Auto) Eos # (Auto) Seg Neutrophils % Seg Neuts % (Manual) Lymphocytes % (Manual) Monocytes % (Manual) Seg Neutrophils # Seg Neutrophils # Man Lymphocytes # (Manual) Monocytes # (Manual) PT INR ABG pH POC ABG pCO2 POC ABG pO2 ABG pO2 ABG HCO3 ABG O2 Saturation ABG Base Excess ABG Hemoglobin ABG Oxyhemoglobin ABG Sodium ABG Potassium ABG Chloride ABG Glucose Oxyhemoglobin Sodium 136 L Potassium Chloride 94.3 L Carbon Dioxide BUN 117 H Creatinine 9.9 H Glucose 217 H POC Glucose 181 H Lactic Acid Calcium 8.3 L Phosphorus Magnesium Total Bilirubin AST ALT Alkaline Phosphatase Total Protein Albumin Triglycerides Arterial Blood Glucose Arterial Blood Ionized Calcium Digoxin Crossmatch 01/15/21 01/15/21 01/15/21 05:29 11:51 23:13 WBC RBC Hgb Hct MCV MCHC RDW Plt Count Lymph % (Auto) [place] % (Auto) Eos % (Auto) Lymph # (Auto) [place] # (Auto) Eos # (Auto) Seg Neutrophils % Seg Neuts % (Manual) Lymphocytes % (Manual) Monocytes % (Manual) Seg Neutrophils # Seg Neutrophils # Man Lymphocytes # (Manual) Monocytes # (Manual) PT INR ABG pH POC ABG pCO2 POC ABG pO2 ABG pO2 ABG HCO3 ABG O2 Saturation ABG Base Excess ABG Hemoglobin ABG Oxyhemoglobin ABG Sodium ABG Potassium ABG Chloride ABG Glucose Oxyhemoglobin Sodium Potassium Chloride Carbon Dioxide BUN Creatinine Glucose POC Glucose 221 H 62 L 154 H Lactic Acid Calcium Phosphorus Magnesium Total Bilirubin AST ALT Alkaline Phosphatase Total Protein Albumin Triglycerides Arterial Blood Glucose Arterial Blood Ionized Calcium Digoxin Crossmatch 01/16/21 01/16/21 01/16/21 05:04 06:44 06:44 WBC 14.8 H RBC 2.76 L Hgb 8.2 L Hct 24.8 L MCV MCHC RDW 15.6 H Plt Count Lymph % (Auto) [place] % (Auto) Eos % (Auto) Lymph # (Auto) [place] # (Auto) Eos # (Auto) Seg Neutrophils % Seg Neuts % (Manual) Lymphocytes % (Manual) Monocytes % (Manual) Seg Neutrophils # Seg Neutrophils # Man Lymphocytes # (Manual) Monocytes # (Manual) PT INR ABG pH POC ABG pCO2 POC ABG pO2 ABG pO2 ABG HCO3 ABG O2 Saturation ABG Base Excess ABG Hemoglobin ABG Oxyhemoglobin ABG Sodium ABG Potassium ABG Chloride ABG Glucose Oxyhemoglobin Sodium 133 L Potassium Chloride 92.3 L Carbon Dioxide 20 L BUN 160 H Creatinine 12.1 H Glucose 177 H POC Glucose 168 H Lactic Acid Calcium 8.1 L Phosphorus 5.50 H Magnesium 2.50 H Total Bilirubin AST ALT Alkaline Phosphatase Total Protein Albumin Triglycerides Arterial Blood Glucose Arterial Blood Ionized Calcium Digoxin Crossmatch 01/16/21 01/17/21 01/17/21 23:20 05:14 05:14 WBC 12.7 H RBC 2.75 L Hgb 8.5 L Hct 24.6 L MCV MCHC 35 H RDW 15.4 H Plt Count Lymph % (Auto) [place] % (Auto) Eos % (Auto) Lymph # (Auto) [place] # (Auto) Eos # (Auto) Seg Neutrophils % Seg Neuts % (Manual) Lymphocytes % (Manual) Monocytes % (Manual) Seg Neutrophils # Seg Neutrophils # Man Lymphocytes # (Manual) Monocytes # (Manual) PT INR ABG pH POC ABG pCO2 POC ABG pO2 ABG pO2 ABG HCO3 ABG O2 Saturation ABG Base Excess ABG Hemoglobin ABG Oxyhemoglobin ABG Sodium ABG Potassium ABG Chloride ABG Glucose Oxyhemoglobin Sodium Potassium Chloride 97.9 L Carbon Dioxide BUN 84 H Creatinine 7.8 H Glucose 176 H POC Glucose 153 H Lactic Acid Calcium 8.0 L Phosphorus Magnesium Total Bilirubin AST ALT Alkaline Phosphatase Total Protein Albumin Triglycerides Arterial Blood Glucose Arterial Blood Ionized Calcium Digoxin Crossmatch 01/17/21 01/17/21 01/18/21 05:33 11:58 00:07 WBC RBC Hgb Hct MCV MCHC RDW Plt Count Lymph % (Auto) [place] % (Auto) Eos % (Auto) Lymph # (Auto) [place] # (Auto) Eos # (Auto) Seg Neutrophils % Seg Neuts % (Manual) Lymphocytes % (Manual) Monocytes % (Manual) Seg Neutrophils # Seg Neutrophils # Man Lymphocytes # (Manual) Monocytes # (Manual) PT INR ABG pH POC ABG pCO2 POC ABG pO2 ABG pO2 ABG HCO3 ABG O2 Saturation ABG Base Excess ABG Hemoglobin ABG Oxyhemoglobin ABG Sodium ABG Potassium ABG Chloride ABG Glucose Oxyhemoglobin Sodium Potassium Chloride Carbon Dioxide BUN Creatinine Glucose POC Glucose 162 H 64 L 146 H Lactic Acid Calcium Phosphorus Magnesium Total Bilirubin AST ALT Alkaline Phosphatase Total Protein Albumin Triglycerides Arterial Blood Glucose Arterial Blood Ionized Calcium Digoxin Crossmatch 01/18/21 01/18/21 01/18/21 04:19 04:19 06:15 WBC 15.6 H RBC 3.00 L Hgb 9.2 L Hct 26.8 L MCV MCHC 35 H RDW 15.6 H Plt Count Lymph % (Auto) [place] % (Auto) Eos % (Auto) Lymph # (Auto) [place] # (Auto) Eos # (Auto) Seg Neutrophils % Seg Neuts % (Manual) Lymphocytes % (Manual) Monocytes % (Manual) Seg Neutrophils # Seg Neutrophils # Man Lymphocytes # (Manual) Monocytes # (Manual) PT INR ABG pH POC ABG pCO2 POC ABG pO2 ABG pO2 ABG HCO3 ABG O2 Saturation ABG Base Excess ABG Hemoglobin ABG Oxyhemoglobin ABG Sodium ABG Potassium ABG Chloride ABG Glucose Oxyhemoglobin Sodium Potassium Chloride 96.2 L Carbon Dioxide BUN 117 H Creatinine 10.0 H Glucose 165 H POC Glucose 189 H Lactic Acid Calcium Phosphorus 4.70 H D Magnesium Total Bilirubin AST ALT Alkaline Phosphatase Total Protein Albumin Triglycerides Arterial Blood Glucose Arterial Blood Ionized Calcium Digoxin Crossmatch 01/18/21 01/18/21 01/18/21 11:53 13:44 15:08 WBC RBC Hgb Hct MCV MCHC RDW Plt Count Lymph % (Auto) [place] % (Auto) Eos % (Auto) Lymph # (Auto) [place] # (Auto) Eos # (Auto) Seg Neutrophils % Seg Neuts % (Manual) Lymphocytes % (Manual) Monocytes % (Manual) Seg Neutrophils # Seg Neutrophils # Man Lymphocytes # (Manual) Monocytes # (Manual) PT INR ABG pH POC ABG pCO2 POC ABG pO2 ABG pO2 ABG HCO3 ABG O2 Saturation ABG Base Excess ABG Hemoglobin ABG Oxyhemoglobin ABG Sodium ABG Potassium ABG Chloride ABG Glucose Oxyhemoglobin Sodium Potassium Chloride Carbon Dioxide BUN Creatinine Glucose POC Glucose 69 L 50 L 56 L Lactic Acid Calcium Phosphorus Magnesium Total Bilirubin AST ALT Alkaline Phosphatase Total Protein Albumin Triglycerides Arterial Blood Glucose Arterial Blood Ionized Calcium Digoxin Crossmatch 01/18/21 01/19/21 01/19/21 17:50 04:55 08:56 WBC 12.7 H RBC 2.89 L Hgb 8.7 L Hct 25.6 L MCV MCHC RDW 15.5 H Plt Count Lymph % (Auto) [place] % (Auto) Eos % (Auto) Lymph # (Auto) [place] # (Auto) Eos # (Auto) Seg Neutrophils % Seg Neuts % (Manual) Lymphocytes % (Manual) Monocytes % (Manual) Seg Neutrophils # Seg Neutrophils # Man Lymphocytes # (Manual) Monocytes # (Manual) PT INR ABG pH POC ABG pCO2 POC ABG pO2 ABG pO2 ABG HCO3 ABG O2 Saturation ABG Base Excess ABG Hemoglobin ABG Oxyhemoglobin ABG Sodium ABG Potassium ABG Chloride ABG Glucose Oxyhemoglobin Sodium Potassium Chloride Carbon Dioxide BUN Creatinine Glucose POC Glucose 137 H 120 H Lactic Acid Calcium Phosphorus Magnesium Total Bilirubin AST ALT Alkaline Phosphatase Total Protein Albumin Triglycerides Arterial Blood Glucose Arterial Blood Ionized Calcium Digoxin Crossmatch 01/19/21 01/19/21 01/19/21 08:56 11:33 17:32 WBC RBC Hgb Hct MCV MCHC RDW Plt Count Lymph % (Auto) [place] % (Auto) Eos % (Auto) Lymph # (Auto) [place] # (Auto) Eos # (Auto) Seg Neutrophils % Seg Neuts % (Manual) Lymphocytes % (Manual) Monocytes % (Manual) Seg Neutrophils # Seg Neutrophils # Man Lymphocytes # (Manual) Monocytes # (Manual) PT INR ABG pH POC ABG pCO2 POC ABG pO2 ABG pO2 ABG HCO3 ABG O2 Saturation ABG Base Excess ABG Hemoglobin ABG Oxyhemoglobin ABG Sodium ABG Potassium ABG Chloride ABG Glucose Oxyhemoglobin Sodium Potassium Chloride Carbon Dioxide BUN 66 H Creatinine 7.7 H Glucose 119 H POC Glucose 160 H 125 H Lactic Acid Calcium 8.3 L Phosphorus Magnesium Total Bilirubin AST ALT Alkaline Phosphatase Total Protein Albumin Triglycerides Arterial Blood Glucose Arterial Blood Ionized Calcium Digoxin Crossmatch 01/19/21 01/20/21 01/20/21 23:30 03:35 03:35 WBC 12.0 H RBC 2.62 L Hgb 8.3 L Hct 23.2 L MCV MCHC 36 H RDW Plt Count Lymph % (Auto) [place] % (Auto) Eos % (Auto) Lymph # (Auto) [place] # (Auto) Eos # (Auto) Seg Neutrophils % Seg Neuts % (Manual) Lymphocytes % (Manual) Monocytes % (Manual) Seg Neutrophils # Seg Neutrophils # Man Lymphocytes # (Manual) Monocytes # (Manual) PT INR ABG pH POC ABG pCO2 POC ABG pO2 ABG pO2 ABG HCO3 ABG O2 Saturation ABG Base Excess ABG Hemoglobin ABG Oxyhemoglobin ABG Sodium ABG Potassium ABG Chloride ABG Glucose Oxyhemoglobin Sodium Potassium Chloride Carbon Dioxide BUN 46 H Creatinine 5.9 H Glucose 128 H POC Glucose 127 H Lactic Acid Calcium Phosphorus Magnesium Total Bilirubin AST ALT Alkaline Phosphatase Total Protein Albumin Triglycerides Arterial Blood Glucose Arterial Blood Ionized Calcium Digoxin Crossmatch 01/20/21 01/20/21 01/20/21 06:19 11:55 18:00 WBC RBC Hgb Hct MCV MCHC RDW Plt Count Lymph % (Auto) [place] % (Auto) Eos % (Auto) Lymph # (Auto) [place] # (Auto) Eos # (Auto) Seg Neutrophils % Seg Neuts % (Manual) Lymphocytes % (Manual) Monocytes % (Manual) Seg Neutrophils # Seg Neutrophils # Man Lymphocytes # (Manual) Monocytes # (Manual) PT INR ABG pH POC ABG pCO2 POC ABG pO2 ABG pO2 ABG HCO3 ABG O2 Saturation ABG Base Excess ABG Hemoglobin ABG Oxyhemoglobin ABG Sodium ABG Potassium ABG Chloride ABG Glucose Oxyhemoglobin Sodium Potassium Chloride Carbon Dioxide BUN Creatinine Glucose POC Glucose 119 H 128 H 115 H Lactic Acid Calcium Phosphorus Magnesium Total Bilirubin AST ALT Alkaline Phosphatase Total Protein Albumin Triglycerides Arterial Blood Glucose Arterial Blood Ionized Calcium Digoxin Crossmatch 01/20/21 01/21/21 01/21/21 23:26 04:39 05:27 WBC RBC Hgb Hct MCV MCHC RDW Plt Count Lymph % (Auto) [place] % (Auto) Eos % (Auto) Lymph # (Auto) [place] # (Auto) Eos # (Auto) Seg Neutrophils % Seg Neuts % (Manual) Lymphocytes % (Manual) Monocytes % (Manual) Seg Neutrophils # Seg Neutrophils # Man Lymphocytes # (Manual) Monocytes # (Manual) PT INR ABG pH POC ABG pCO2 POC ABG pO2 ABG pO2 ABG HCO3 ABG O2 Saturation ABG Base Excess ABG Hemoglobin ABG Oxyhemoglobin ABG Sodium ABG Potassium ABG Chloride ABG Glucose Oxyhemoglobin Sodium Potassium Chloride Carbon Dioxide BUN 37 H Creatinine 5.3 H Glucose 109 H POC Glucose 108 H 107 H Lactic Acid Calcium Phosphorus 2.10 L Magnesium 1.50 L Total Bilirubin AST ALT Alkaline Phosphatase 143 H Total Protein 6.1 L Albumin 3.0 L Triglycerides Arterial Blood Glucose Arterial Blood Ionized Calcium Digoxin Crossmatch 01/21/21 01/21/21 01/22/21 11:35 17:53 00:20 WBC RBC Hgb Hct MCV MCHC RDW Plt Count Lymph % (Auto) [place] % (Auto) Eos % (Auto) Lymph # (Auto) [place] # (Auto) Eos # (Auto) Seg Neutrophils % Seg Neuts % (Manual) Lymphocytes % (Manual) Monocytes % (Manual) Seg Neutrophils # Seg Neutrophils # Man Lymphocytes # (Manual) Monocytes # (Manual) PT INR ABG pH POC ABG pCO2 POC ABG pO2 ABG pO2 ABG HCO3 ABG O2 Saturation ABG Base Excess ABG Hemoglobin ABG Oxyhemoglobin ABG Sodium ABG Potassium ABG Chloride ABG Glucose Oxyhemoglobin Sodium Potassium Chloride Carbon Dioxide BUN Creatinine Glucose POC Glucose 133 H 124 H 122 H Lactic Acid Calcium Phosphorus Magnesium Total Bilirubin AST ALT Alkaline Phosphatase Total Protein Albumin Triglycerides Arterial Blood Glucose Arterial Blood Ionized Calcium Digoxin Crossmatch 01/22/21 01/22/21 01/22/21 04:00 06:09 11:36 WBC RBC Hgb Hct MCV MCHC RDW Plt Count Lymph % (Auto) [place] % (Auto) Eos % (Auto) Lymph # (Auto) [place] # (Auto) Eos # (Auto) Seg Neutrophils % Seg Neuts % (Manual) Lymphocytes % (Manual) Monocytes % (Manual) Seg Neutrophils # Seg Neutrophils # Man Lymphocytes # (Manual) Monocytes # (Manual) PT INR ABG pH POC ABG pCO2 POC ABG pO2 ABG pO2 ABG HCO3 ABG O2 Saturation ABG Base Excess ABG Hemoglobin ABG Oxyhemoglobin ABG Sodium ABG Potassium ABG Chloride ABG Glucose Oxyhemoglobin Sodium Potassium Chloride Carbon Dioxide BUN 65 H Creatinine 8.2 H D Glucose 111 H POC Glucose 122 H 132 H Lactic Acid Calcium Phosphorus Magnesium Total Bilirubin AST ALT Alkaline Phosphatase Total Protein Albumin Triglycerides Arterial Blood Glucose Arterial Blood Ionized Calcium Digoxin Crossmatch 01/22/21 01/22/21 01/23/21 17:17 23:18 05:29 WBC RBC Hgb Hct MCV MCHC RDW Plt Count Lymph % (Auto) [place] % (Auto) Eos % (Auto) Lymph # (Auto) [place] # (Auto) Eos # (Auto) Seg Neutrophils % Seg Neuts % (Manual) Lymphocytes % (Manual) Monocytes % (Manual) Seg Neutrophils # Seg Neutrophils # Man Lymphocytes # (Manual) Monocytes # (Manual) PT INR ABG pH POC ABG pCO2 POC ABG pO2 ABG pO2 ABG HCO3 ABG O2 Saturation ABG Base Excess ABG Hemoglobin ABG Oxyhemoglobin ABG Sodium ABG Potassium ABG Chloride ABG Glucose Oxyhemoglobin Sodium Potassium Chloride Carbon Dioxide BUN Creatinine Glucose POC Glucose 135 H 128 H 129 H Lactic Acid Calcium Phosphorus Magnesium Total Bilirubin AST ALT Alkaline Phosphatase Total Protein Albumin Triglycerides Arterial Blood Glucose Arterial Blood Ionized Calcium Digoxin Crossmatch 01/23/21 01/23/21 01/23/21 05:45 11:28 16:39 WBC RBC Hgb Hct MCV MCHC RDW Plt Count Lymph % (Auto) [place] % (Auto) Eos % (Auto) Lymph # (Auto) [place] # (Auto) Eos # (Auto) Seg Neutrophils % Seg Neuts % (Manual) Lymphocytes % (Manual) Monocytes % (Manual) Seg Neutrophils # Seg Neutrophils # Man Lymphocytes # (Manual) Monocytes # (Manual) PT INR ABG pH POC ABG pCO2 POC ABG pO2 ABG pO2 ABG HCO3 ABG O2 Saturation ABG Base Excess ABG Hemoglobin ABG Oxyhemoglobin ABG Sodium ABG Potassium ABG Chloride ABG Glucose Oxyhemoglobin Sodium Potassium Chloride Carbon Dioxide BUN 96 H Creatinine 10.8 H Glucose 124 H POC Glucose 160 H 116 H Lactic Acid Calcium Phosphorus Magnesium 2.50 H Total Bilirubin AST ALT Alkaline Phosphatase Total Protein Albumin Triglycerides Arterial Blood Glucose Arterial Blood Ionized Calcium Digoxin Crossmatch 01/24/21 01/24/21 01/24/21 00:02 04:45 05:01 WBC RBC Hgb Hct MCV MCHC RDW Plt Count Lymph % (Auto) [place] % (Auto) Eos % (Auto) Lymph # (Auto) [place] # (Auto) Eos # (Auto) Seg Neutrophils % Seg Neuts % (Manual) Lymphocytes % (Manual) Monocytes % (Manual) Seg Neutrophils # Seg Neutrophils # Man Lymphocytes # (Manual) Monocytes # (Manual) PT INR ABG pH POC ABG pCO2 POC ABG pO2 ABG pO2 ABG HCO3 ABG O2 Saturation ABG Base Excess ABG Hemoglobin ABG Oxyhemoglobin ABG Sodium ABG Potassium ABG Chloride ABG Glucose Oxyhemoglobin Sodium Potassium 3.5 L Chloride Carbon Dioxide BUN 56 H Creatinine 7.7 H Glucose 102 H POC Glucose 120 H 108 H Lactic Acid Calcium Phosphorus Magnesium Total Bilirubin AST ALT Alkaline Phosphatase Total Protein Albumin Triglycerides Arterial Blood Glucose Arterial Blood Ionized Calcium Digoxin Crossmatch 01/24/21 01/24/21 01/24/21 12:03 17:07 23:55 WBC RBC Hgb Hct MCV MCHC RDW Plt Count Lymph % (Auto) [place] % (Auto) Eos % (Auto) Lymph # (Auto) [place] # (Auto) Eos # (Auto) Seg Neutrophils % Seg Neuts % (Manual) Lymphocytes % (Manual) Monocytes % (Manual) Seg Neutrophils # Seg Neutrophils # Man Lymphocytes # (Manual) Monocytes # (Manual) PT INR ABG pH POC ABG pCO2 POC ABG pO2 ABG pO2 ABG HCO3 ABG O2 Saturation ABG Base Excess ABG Hemoglobin ABG Oxyhemoglobin ABG Sodium ABG Potassium ABG Chloride ABG Glucose Oxyhemoglobin Sodium Potassium Chloride Carbon Dioxide BUN Creatinine Glucose POC Glucose 136 H 122 H 112 H Lactic Acid Calcium Phosphorus Magnesium Total Bilirubin AST ALT Alkaline Phosphatase Total Protein Albumin Triglycerides Arterial Blood Glucose Arterial Blood Ionized Calcium Digoxin Crossmatch 01/25/21 01/25/21 01/25/21 05:15 06:00 07:47 WBC RBC Hgb Hct MCV MCHC RDW Plt Count Lymph % (Auto) [place] % (Auto) Eos % (Auto) Lymph # (Auto) [place] # (Auto) Eos # (Auto) Seg Neutrophils % Seg Neuts % (Manual) Lymphocytes % (Manual) Monocytes % (Manual) Seg Neutrophils # Seg Neutrophils # Man Lymphocytes # (Manual) Monocytes # (Manual) PT INR ABG pH POC ABG pCO2 POC ABG pO2 ABG pO2 ABG HCO3 ABG O2 Saturation ABG Base Excess ABG Hemoglobin ABG Oxyhemoglobin ABG Sodium ABG Potassium ABG Chloride ABG Glucose Oxyhemoglobin Sodium 116 L* D Potassium Chloride 79.1 L Carbon Dioxide 17 L D BUN 72 H Creatinine 7.4 H Glucose 2242 H* POC Glucose 117 H 138 H Lactic Acid Calcium 6.7 L D Phosphorus Magnesium Total Bilirubin AST ALT Alkaline Phosphatase Total Protein Albumin Triglycerides Arterial Blood Glucose Arterial Blood Ionized Calcium Digoxin Crossmatch 01/25/21 01/25/21 01/25/21 08:35 11:49 18:42 WBC RBC Hgb Hct MCV MCHC RDW Plt Count Lymph % (Auto) [place] % (Auto) Eos % (Auto) Lymph # (Auto) [place] # (Auto) Eos # (Auto) Seg Neutrophils % Seg Neuts % (Manual) Lymphocytes % (Manual) Monocytes % (Manual) Seg Neutrophils # Seg Neutrophils # Man Lymphocytes # (Manual) Monocytes # (Manual) PT INR ABG pH POC ABG pCO2 POC ABG pO2 ABG pO2 ABG HCO3 ABG O2 Saturation ABG Base Excess ABG Hemoglobin ABG Oxyhemoglobin ABG Sodium ABG Potassium ABG Chloride ABG Glucose Oxyhemoglobin Sodium Potassium Chloride 97.0 L Carbon Dioxide BUN 92 H Creatinine 11.0 H Glucose 125 H POC Glucose 130 H 122 H Lactic Acid Calcium Phosphorus Magnesium Total Bilirubin AST ALT Alkaline Phosphatase Total Protein Albumin Triglycerides Arterial Blood Glucose Arterial Blood Ionized Calcium Digoxin Crossmatch 01/25/21 01/26/21 01/26/21 23:37 04:19 05:48 WBC RBC Hgb Hct MCV MCHC RDW Plt Count Lymph % (Auto) [place] % (Auto) Eos % (Auto) Lymph # (Auto) [place] # (Auto) Eos # (Auto) Seg Neutrophils % Seg Neuts % (Manual) Lymphocytes % (Manual) Monocytes % (Manual) Seg Neutrophils # Seg Neutrophils # Man Lymphocytes # (Manual) Monocytes # (Manual) PT INR ABG pH POC ABG pCO2 POC ABG pO2 ABG pO2 ABG HCO3 ABG O2 Saturation ABG Base Excess ABG Hemoglobin ABG Oxyhemoglobin ABG Sodium ABG Potassium ABG Chloride ABG Glucose Oxyhemoglobin Sodium Potassium Chloride Carbon Dioxide BUN 49 H Creatinine 7.1 H Glucose POC Glucose 144 H 125 H Lactic Acid Calcium Phosphorus Magnesium 1.50 L Total Bilirubin AST ALT Alkaline Phosphatase Total Protein Albumin Triglycerides Arterial Blood Glucose Arterial Blood Ionized Calcium Digoxin Crossmatch 01/26/21 01/26/21 01/27/21 11:16 18:35 00:01 WBC RBC Hgb Hct MCV MCHC RDW Plt Count Lymph % (Auto) [place] % (Auto) Eos % (Auto) Lymph # (Auto) [place] # (Auto) Eos # (Auto) Seg Neutrophils % Seg Neuts % (Manual) Lymphocytes % (Manual) Monocytes % (Manual) Seg Neutrophils # Seg Neutrophils # Man Lymphocytes # (Manual) Monocytes # (Manual) PT INR ABG pH POC ABG pCO2 POC ABG pO2 ABG pO2 ABG HCO3 ABG O2 Saturation ABG Base Excess ABG Hemoglobin ABG Oxyhemoglobin ABG Sodium ABG Potassium ABG Chloride ABG Glucose Oxyhemoglobin Sodium Potassium Chloride Carbon Dioxide BUN Creatinine Glucose POC Glucose 122 H 127 H 130 H Lactic Acid Calcium Phosphorus Magnesium Total Bilirubin AST ALT Alkaline Phosphatase Total Protein Albumin Triglycerides Arterial Blood Glucose Arterial Blood Ionized Calcium Digoxin Crossmatch 01/27/21 01/27/21 01/27/21 04:19 04:19 05:25 WBC 12.4 H RBC 2.79 L Hgb 8.6 L Hct 25.1 L MCV MCHC RDW 16.1 H Plt Count Lymph % (Auto) 7.5 L [place] % (Auto) 9.3 H Eos % (Auto) 4.8 H Lymph # (Auto) 0.9 L [place] # (Auto) 1.1 H Eos # (Auto) 0.6 H Seg Neutrophils % 78.0 H Seg Neuts % (Manual) Lymphocytes % (Manual) Monocytes % (Manual) Seg Neutrophils # 9.7 H Seg Neutrophils # Man Lymphocytes # (Manual) Monocytes # (Manual) PT INR ABG pH POC ABG pCO2 POC ABG pO2 ABG pO2 ABG HCO3 ABG O2 Saturation ABG Base Excess ABG Hemoglobin ABG Oxyhemoglobin ABG Sodium ABG Potassium ABG Chloride ABG Glucose Oxyhemoglobin Sodium Potassium Chloride 97.9 L Carbon Dioxide BUN 76 H Creatinine 9.9 H Glucose 111 H POC Glucose 129 H Lactic Acid Calcium Phosphorus Magnesium Total Bilirubin AST ALT Alkaline Phosphatase Total Protein Albumin Triglycerides Arterial Blood Glucose Arterial Blood Ionized Calcium Digoxin Crossmatch 01/27/21 01/27/21 01/27/21 11:30 17:08 23:28 WBC RBC Hgb Hct MCV MCHC RDW Plt Count Lymph % (Auto) [place] % (Auto) Eos % (Auto) Lymph # (Auto) [place] # (Auto) Eos # (Auto) Seg Neutrophils % Seg Neuts % (Manual) Lymphocytes % (Manual) Monocytes % (Manual) Seg Neutrophils # Seg Neutrophils # Man Lymphocytes # (Manual) Monocytes # (Manual) PT INR ABG pH POC ABG pCO2 POC ABG pO2 ABG pO2 ABG HCO3 ABG O2 Saturation ABG Base Excess ABG Hemoglobin ABG Oxyhemoglobin ABG Sodium ABG Potassium ABG Chloride ABG Glucose Oxyhemoglobin Sodium Potassium Chloride Carbon Dioxide BUN Creatinine Glucose POC Glucose 128 H 158 H 114 H Lactic Acid Calcium Phosphorus Magnesium Total Bilirubin AST ALT Alkaline Phosphatase Total Protein Albumin Triglycerides Arterial Blood Glucose Arterial Blood Ionized Calcium Digoxin Crossmatch 01/28/21 01/28/21 05:17 11:27 WBC RBC Hgb Hct MCV MCHC RDW Plt Count Lymph % (Auto) [place] % (Auto) Eos % (Auto) Lymph # (Auto) [place] # (Auto) Eos # (Auto) Seg Neutrophils % Seg Neuts % (Manual) Lymphocytes % (Manual) Monocytes % (Manual) Seg Neutrophils # Seg Neutrophils # Man Lymphocytes # (Manual) Monocytes # (Manual) PT INR ABG pH POC ABG pCO2 POC ABG pO2 ABG pO2 ABG HCO3 ABG O2 Saturation ABG Base Excess ABG Hemoglobin ABG Oxyhemoglobin ABG Sodium ABG Potassium ABG Chloride ABG Glucose Oxyhemoglobin Sodium Potassium Chloride Carbon Dioxide BUN Creatinine Glucose POC Glucose 113 H 134 H Lactic Acid Calcium Phosphorus Magnesium Total Bilirubin AST ALT Alkaline Phosphatase Total Protein Albumin Triglycerides Arterial Blood Glucose Arterial Blood Ionized Calcium Digoxin Crossmatch Allied health notes reviewed: nursing
--- NOTE | 2021-01-28 15:03 | Progress Note ---
Assessment and Plan 60 yo M POD#35 s/p ex lap with extensive lysis of adhesions and two small bowel resections with primary anastamosis for SBO with necrotic segment small bowel. POD#26 s/p ex lap, resection of perforated anastamosis, washout and abthera wou nd vac placement. POD#24 s/p ex lap with right hemicolectomy. POD#22 s/p ex lap, with jejunal-colonic anastamosis and closure of abdomen. Pt is afebrile and stable. Ongoing treatment for anastamotic leak, which is improving. Plan 1. Continue HARIS drain suction. HARIS drain must be secured and kept in place. 2. Will maintain LIWS to NGT and monitor output. 3. continue q 8h ocreotide. 4. OOB 5. GI and DVT ppx 6. TPN 7. prn pain control Prognosis is guarded. Discussed with Dr. Lopez. Please call with questions. Subjective Date of service: 01/28/21 Narrative: Patient seen and examined. He has no new complaints today. He states he feels well and his pain is well controlled. Afebrile. Objective Vital Signs - 12hr 01/28/21 01/28/21 01/28/21 03:27 04:01 04:50 Temperature 98.1 F Pulse Rate 78 76 Respiratory 31 H Rate Respiratory Rate [Anterior Abdomen] Blood Pressure 150/77 O2 Sat by Pulse 94 Oximetry 01/28/21 01/28/21 01/28/21 05:00 06:01 06:25 Temperature Pulse Rate 76 76 Respiratory 18 15 Rate Respiratory 16 Rate [Anterior Abdomen] Blood Pressure 163/78 166/81 O2 Sat by Pulse 93 94 Oximetry 01/28/21 01/28/21 01/28/21 06:26 06:27 06:56 Temperature Pulse Rate 72 Respiratory 18 16 Rate Respiratory Rate [Anterior Abdomen] Blood Pressure 166/81 O2 Sat by Pulse Oximetry 01/28/21 01/28/21 01/28/21 07:00 08:00 09:00 Temperature Pulse Rate 74 77 71 Respiratory 15 14 11 L Rate Respiratory Rate [Anterior Abdomen] Blood Pressure 151/77 150/72 140/72 O2 Sat by Pulse 92 93 94 Oximetry 01/28/21 01/28/21 01/28/21 10:00 10:10 10:15 Temperature 98.2 F Pulse Rate 74 73 70 Respiratory 16 15 Rate Respiratory Rate [Anterior Abdomen] Blood Pressure 147/81 139/76 149/83 O2 Sat by Pulse 95 Oximetry 01/28/21 01/28/21 01/28/21 10:30 10:45 11:00 Temperature Pulse Rate 71 74 72 Respiratory 15 Rate Respiratory Rate [Anterior Abdomen] Blood Pressure 136/71 138/75 139/79 O2 Sat by Pulse 95 Oximetry 01/28/21 01/28/21 01/28/21 11:15 11:21 11:22 Temperature Pulse Rate 72 72 Respiratory Rate Respiratory Rate [Anterior Abdomen] Blood Pressure 144/75 144/75 144/75 O2 Sat by Pulse Oximetry 01/28/21 01/28/21 01/28/21 11:30 11:45 12:00 Temperature 98.6 F Pulse Rate 72 69 70 Respiratory 15 Rate Respiratory Rate [Anterior Abdomen] Blood Pressure 136/75 134/70 137/74 O2 Sat by Pulse 96 Oximetry 01/28/21 01/28/21 01/28/21 12:15 12:30 12:45 Temperature Pulse Rate 72 72 69 Respiratory Rate Respiratory Rate [Anterior Abdomen] Blood Pressure 138/77 143/69 137/72 O2 Sat by Pulse Oximetry 01/28/21 01/28/21 01/28/21 13:00 13:15 13:20 Temperature 98.6 F Pulse Rate 85 70 74 Respiratory 15 22 Rate Respiratory Rate [Anterior Abdomen] Blood Pressure 137/72 146/73 142/72 O2 Sat by Pulse 97 Oximetry - General physical appearance Narrative Exam: Gen: AAOx3. NAD ENT: NGT in place with bilious output CV: s1, S2+ Resp: even and unlabored Abd: soft, NT, ND. Incisional wound vac in place with serous drainage Ext: no c/c/e Output: Haris drain 20 cc/24h bilious NGT - 700 cc/24h bilious - Labs 01/27/21 04:19 01/27/21 04:19
[2021-01-28] MEDS: diphenhydrAMINE 50 MG/ML VIAL IV PRN (17:54)
[2021-01-28] MEDS ORDERED: TOTAL PARENTERAL NUTRITION 2,016 ML IV SCH (20:00)
[2021-01-28] MEDS: INSULIN GLARGINE 100 UNITS/ML SUB-Q SCH (21:50)
[2021-01-29] MEDS: HYDROmorphone 1 MG/1 ML INJ IV PRN (02:06)
[2021-01-29] MEDS: diphenhydrAMINE 50 MG/ML VIAL IV PRN (02:07)
[2021-01-29] MEDS: hydrALAZINE 20 MG/1 ML INJ IV SCH ×6 (02:07→23:53)
[2021-01-29] MEDS: METOPROLOL TARTRATE 5 MG/5 ML INJ IV SCH ×4 (02:07→14:33)
[2021-01-29] MEDS: INSULIN LISPRO 100 UNIT/ML SUB-Q SCH ×2 (04:59→12:00)
[2021-01-29] MEDS: OCTREOTIDE 100 MCG in SODIUM CHLORIDE 0.9% 100 ML IV SCH ×3 (06:00→15:39)
[2021-01-29 08:04] LABS: Albumin 2.9 g/dL (3.9-5); Calcium 9.1 mg/dL (8.4-10.2)
--- NOTE | 2021-01-29 08:44 | Progress Note ---
Assessment and Plan Assessment and plan: This is a 60 YO Male with ESRD on PD, GERD, Crohn's Disease, Nicotine Dependence, HTN, Systolic CHF(EF 35%) who presented to the emergency department on 12/22 with complaints of abdominal pain which began shortly after eating fast food rated 10/10 which is periumbilical, constant, associated with fever, nausea and multiple sites of vomiting and self-reported inability to undergo PD. In the emergency room patient underwent a CT scan of the abdomen/pelvis which revealed evidence of partial small bowel obstruction, symptoms were consistent with bacterial peritonitis. Patient was admitted to the hospital service with sepsis, peritonitis, and small bowel obstruction with consults to general surgery, nephrology, infectious disease and [facility]. 12/23. Patient had temperature 101.2 F, tachycardia and elevated lactic acid on admission. Meet sepsis criteria. Started on IV antibiotics. ID has been c onsulted. Surgery consulted this a.m.-advised laparoscopy. He remains on NG tube connected to suction. 12/24. Patient was noted to have peritonitis yesterday and patient undergoing exploratory laparotomy. Patient remained intubated after procedure and is in ICU. Now on broad-spectrum antibiotics. ID on board. 12/25. Remains mechanically ventilated and sedated. Temp 103 Fahrenheit. Antibiotics broadened-ID added fluconazole and Flagyl. Blood cultures ordered. Plan to repeat CT abdomen tomorrow if not better. Surgery following. 12/26: Patient remains on mechanical ventilation on CMV tidal line 550, rate of 14, PEEP of 8 and 30% FiO2 and sedated on fentanyl 4 micrograms. Today we will remove his Jeffery and CCM dropped his rate controlled him on CPAP. We will trend CBC given recent drop in H/H. 12/27: Patient remains intubated on CMV tidal volume 550, rate 12, PEEP 8 on 30% FiO2 at the time my examination. Patient's TPN will be changed to PPN. Patient's fentanyl drip will be changed to IV push fentanyl and have a permacath placed today and midline. Patient was placed on a spontaneous breathing trial was switched back to CMV prior to procedure. 12/28: Patient on fentanyl but awake and follows commands. At the time of my examination he was on a CPAP trial and is scheduled to receive HD today. s/o permacath and PICC placement with vascular yesterday. His blood culture grew Prevotella and addition to Streptococcus bovis. This evening Dr. Spcier attempted to extubate the patient and his heart rate went to the 180s. Stat EKG obtained and cardiology consulted. 12/29: Patient was started on amiodarone IV for A. fib RVR yesterday and today he is more rate controlled into the 70s and 80s. Patient was extubated yesterday and is currently on Ventimask. Patient will be transferred to [facility]. Patient continues to be n.p.o. with TPN and NG tube to LIS. He is hypokalemic today which was repleted. 12/30; patient was on IV amiodarone for treatment with RVR, rate is controlled. Patient was off oxygen. patient is n.p.o. and on TPN. Surgery is following the patient. 12/31: Patient was intubated overnight for respiratory distress and this morning on examination he was on assist control tidal volume 450, rate 20, PEEP 6, 100% FiO2 and RT was getting a ABG to adjust vent settings. Patient had a acute bump in WBC and per ID recommendations we will obtain a CT abdomen/pelvis if leukocytosis persist. Patient is on TPN and sedated with Levophed. Patient is also on vasopressor support with Levophed. Per surgery his ileus is resolving however will maintain OGT to LIWS. 01/01: Patient was started on a vasopressin yesterday late evening. This morning patient is on 20 mcg of Levophed and 0.03 vasopressin and sedated on 20 mcg of propofol. Patient WBC increased today and he is hypokalemic. We will treat hyperkalemia. Patient had a CT chest and abdomen/pelvis pending. The time examination total of 450, rate 20, PEEP of 6 and 35 percent FiO2. Per RN, Dr Pollock has stated that the patient will be returning to the OR today for likely anastomosis seen on CT abdomen/pelvis. 01/02: Patient noted, WBC improving, but noted to have anemia, will transfuse additional unit of Blood and repeat H/H. continue supportive care. 01/03: Continue to wean pressors, ABX PER ID, patient to return to OR today for washout and possible closure, CONTINUE TPN 01/04: Continues to show some improvement. Today is POD#12 s/p ex lap with extensive lysis of adhesions and two small bowel resections with primary anastamosis for SBO with necrotic segment small bowel. POD#3 s/p ex lap, resection of perforated anastamosis, washout and abthera wound vac placement. POD#1 s/p ex lap with right hemicolectomy. Surgery planning to take back to the OR on Saturday with the hope to anastamos ileum to transverse colon and close abdomen. keep NGT to suction. Pt in deep sedation due to open abdomen. Per ID - Continue IV Zosyn, renally dosed for Strep bacteremia treatment till 01/06/2021 -On TPN 01/05: Patient continues on HD, anticipate return to OR tomorrow for closure and anastemosis. Continues with deep sedation due to open abdomen 01/06: Continue supportive care, monitor pressures and electrolytes. He is post op Exploratory laparotomy, 2. Jejunal colonic anastomosis,3. Segmental small bowel resection and anastemosis closure today. Continue wound vac 01/07: Continue supportive care, Today is POD#15 s/p ex lap with extensive lysis of adhesions and two small bowel resections with primary anastamosis for SBO with necrotic segment small bowel. POD#6 s/p ex lap, resection of perforated anastamosis, washout and abthera wound vac placement. POD#4 s/p ex lap with right hemicolectomy. POD #1 exploratory laparotomy, 2. Jejunal colonic anastomosis,3. Segmental small bowel resection. Continue to monitor and correct electrolytes. Patient remains on fentanyl and TPN with lipids. Still hypoactive bowel sounds. 16: Patient now extubated, asked when he can go home, Still lethargic. Continue wound management, wound vac, Will need Rehab eval prior to discharge. 01/09: Patient remains on TPN, was started on labetalol drip per cardiology, africa dueñas had uncontrolled hypertension today however he cannot be given p.o. medications ileus resolves per surgery. Patient received hemodialysis today. NG tube remains to low intermittent suction. 01/10: Patient has some leukocytosis, slight hypokalemia and hyponatremia, metabolic acidosis. NG tube to LIWS, continue TPN. Patient will be downgraded to IMCU today. [facility] is working on placement. Will change frequency of hydralazine and discontinue labetalol drip. We will obtain a.m. BMP/mag/Phos and CBC. Infectious disease will like to start Zosyn if leukocytosis continues to worsen. 01/11: Patient leukocytosis has slightly improved potassium with in normal limits and other electrolytes are elevated but patient is scheduled for HD today. Remains on RA and A,A,Ox4. BP better controlled but remains elevated and we will increase clonidine dose. 01/12/2021; patient's blood pressure is better after dialysis and as needed IV medications and clonidine patch. Patient is followed by general surgery. Patient was alert and oriented and asked when he is going home. 01/13: Surgery is concerned about a leak at his anastamosis given increased output and will treat as controlled fistula and start an octreotide drip. And per surgery if he requires operative intervention will likely need to be left in discontinuity and eventual ileostomy as he has already failed two anastamoses. Patient still has tongue swelling and slurred speech. He is on Benadryl. 01/14: Patient's tongue swelling is improved, patient is alert and oriented, CAM ICU negative. Continue NG tube to low wall intermittent suction. Leukocytosis is improving. Hypomagnesemia resolved. Epogen with HD 01/15: Patient tongue swelling is much improved, bladder scan completed by bedside RN and he needed to be straight cathed. NGT output decreased. Leukocytosis improving. Patient has been having episodes of hypoglycemia during the day and he is on cyclic TPN, Lantus rescheduled to nightly and dosage decreased. 01/16: Continue management per ID and surgery. Will defer repeat CT of the abdomen to the team surgery has been approved by nephrology. Continue current diet and advance all to ice if okay with surgery discussed with nursing staff. 01/17: Discussed surgical recommendation of strict n.p.o. except for small amount of ice as patient has already failed to anastomosis. And risk for additional surgery with tissues were extremely friable from previous scar. He continues on octreotide drip to slow down GI output HARIS drain remains in place with NG suction for decompression. Patient verbalized understanding although stressed about being discharged. We will continue IMCU care unless otherwise advised by david andersen. Prognosis remains guarded continue to monitor electrolytes considering GI output. 01/18: Continue supportive care, BP mildly elevated, continue to monitor, continue current therapy, if no return to PO soon may consider Increasing clonidine to 0.3, PO when ok with surgery. 01/19:Continue supportive care, Per ID continue IV Zosyn, plan to stop at 3 weeks from last surgery end date: 01/24/2021. Other management per surgery. Continue TPN. 01/20: Discussed with Surgery, will continue current management. Advised patient of the findings and plan. 01/21: Continue supportive care. Continue management per surgery advance diet when okay with surgery. Plan of care discussed with the patient in detail. 01/22: NG tube to be replaced explained to the patient why this is important. I agree with PT OT discussed with nursing staff very important to let the PT team know that they should manage HARIS drain while patient is ambulating so that he does not come out. Continue current management. Change in ocreotide to q8h and d/c drip NOTED 01/23: Continue supportive care, HD today, counselling provided to the patient on compliance with medical management 01/24: Replace NGT, Continue management per Surgery. POD 32. Mild hypokalemia noted, will replace. 01/25: Brief summary patient is a 60-year-old male admitted with abdominal pain and noted to have necrotic bowel concerning for PD associated peritonitis. Catheter was placed to convert to HD. Patient also underwent multiple surgical interventions. Initial cultures showed Streptococcus bovis bacteremia and Prevotella bacteremia a COLIN was without vegetations repeat blood cultures have been negative. Part of the surgery is included ex lap, resection of perforated anastomosis, washout and a better wound VAC placement on 01/01. While progress has remained slow if has indeed shown some improvement. Patient is agitated about being in the hospital but understands the care management been provided his vital to his health and to prevent further surgeries. The NG tube has been pulled out 2 days ago he vehemently refused the tube being placed back but after a day of nausea with associated vomiting he was accepting of the chest tube to put back. He continues on TPN. We will continue to monitor electrolytes and correct as needed. This a.m. and erroneous blood was obtained likely from the same line as TPN repeat was done which showed normalizing factors. Patient completed antibiotics on 01/25/2020 . 01/26 Patient with severe sepsis with septic shock, small bowel obstruction, necrotic bowel s/p multiple surgeries. He complains of abdominal pain. No fever currently. He asked me when is he going home and i explained that he is not yet stable for discharge 01/27 Patient with severe sepsis with septic shock, small bowel obstruction, necrotic bowel s/p multiple surgeries. He complains of abdominal pain. No fever currently. Paroxysmal atrial fib managed by cardiology 01/28 Patient with severe sepsis with septic shock, small bowel obstruction, necrotic bowel s/p multiple surgeries. No fever currently. No abd pain currently. I discussed with Surgeon, Dr. Pollock. Continue current management. He also has paroxysmal afib, managed by Cardiology. 01/29 Patient with severe sepsis with septic shock, small bowel obstruction, necrotic bowel s/p multiple surgeries. No fever currently. No abd pain currently. I discussed with Surgeon, Dr. Pollock, yesterday. Continue current management. He also has paroxysmal afib, managed by Cardiology. He is on Metoprolol, Digoxin, Clonidine Severe Sepsis with shock Streptococcus bovis bacteremia/Prevotella bacteremia Gwendolyn albicans tracheal aspirate Small bowel obstruction/necrotic bowel s/p ex lap with extensive lysis of adhesions, 2 small bowel resections with primary anastomosis, right hemicolectomy, jejunal colonic anastomosis, segmental small bowel resection Postoperative ileus Atrial fibrillation with RVR Leukocytosis Hypochloremia Gwendolyn albicans in tracheal aspirate from 12/24 ESRD on PD, PermCath to be placed Transaminitis Systolic CHF(EF 35%) Crohn's disease Hypertension -[facility], surgery, infectious disease, nephrology, vascular surgery, cardiology consulted, appreciate recommendations -12/24 S/p ex lap with extensive expectations, 2 small bowel resections with primary anastomosis with surgery on 12/23 -s/p PICC and Permacath placement with vascular surgery on 12/27 -Extubated on 12/28, reintubated 12/31 for respiratory distress and extubated 01/08 -12/29 echocardiogram shows moderate concentric LVH, small pericardial effusion, transmitral Doppler flow pattern is grade 1 abnormal relaxation pattern, left- ventricular systolic function normal, LVEF 50 to 55%, no wall motion abnormalities. -01/01 CT abdomen/pelvis shows small pericardial effusion, mild coronary artery atherosclerotic calcification, small bilateral pleural effusions with associated volume loss, no convincing evidence of bowel obstruction or inflammation, postoperative changes from interval/recent midline laparotomy with a moderate amount of free fluid throughout the abdomen, small amount of dependent free air presumably postoperative -01/02 s/p ex lap, resection of perforated anastamosis, washout and abthera wound vac placement. -01/04 s/p ex lap with right hemicolectomy. -01/06 s/p exploratory laparotomy, Jejunal colonic anastomosis, Segmental small bowel resection. -s/p Vasopressor support with Levophed and vasopressin -Transitioned to HD from PD -HD per nephro, Epogen with HD -Strict NPO -TPN -Octreotide drip -NGT to LIWS -s/p IV antibiotics -Tobacco abuse cessation counseling -Trend CBC, BMP DVT/GI prophylaxis: PPI, heparin subcu, SCDs to bilateral lower extremities while in bed Disposition: IMCU History Interval history: Patient has had multiple surgeries Less abdominal pain No fever currently Tmax 99.8 patient asking when he can go home Hospitalist Physical - Physical exam Narrative exam: Gen:Not in acute distress, lying in bed HEENT:Normocephalic , NG tube Neck:supple, no JVD Lungs:Clear to auscultation bilat, no rales Heart:S1 and S2 reg, no murmurs, no rubs or gallop Abd: covered with dressing, HARIS drain, decreased bowel sounds Ext: No edema, no clubbing, no cyanosis Neuro:Awake,alert,oriented X3, moves all extremities psych: Calm, co-operative - Constitutional Vitals: Temp Pulse Resp BP Pulse Ox 99.4 F 75 15 157/86 91 01/29/21 03:40 01/29/21 05:00 01/29/21 03:00 01/29/21 05:00 01/29/21 03:00 General appearance: Present: no acute distress HEART Score - HEART Score Troponin: Troponin T 0.021 ng/mL (0.00-0.029) 12/22/20 14:38 Results - Labs CBC & Chem 7: 01/27/21 04:19 01/29/21 06:45 Labs: Laboratory Last Values WBC 12.4 K/mm3 (4.5-11.0) H 01/27/21 04:19 RBC 2.79 M/mm3 (3.65-5.03) L 01/27/21 04:19 Hgb 8.6 gm/dl (11.8-15.2) L 01/27/21 04:19 Hct 25.1 % (35.5-45.6) L 01/27/21 04:19 MCV 90 fl (84-94) 01/27/21 04:19 MCH 31 pg (28-32) 01/27/21 04:19 MCHC 34 % (32-34) 01/27/21 04:19 RDW 16.1 % (13.2-15.2) H 01/27/21 04:19 Plt Count 171 K/mm3 (140-440) 01/27/21 04:19 Lymph % (Auto) 7.5 % (13.4-35.0) L 01/27/21 04:19 [place] % (Auto) 9.3 % (0.0-7.3) H 01/27/21 04:19 Eos % (Auto) 4.8 % (0.0-4.3) H 01/27/21 04:19 Baso % (Auto) 0.4 % (0.0-1.8) 01/27/21 04:19 Lymph # (Auto) 0.9 K/mm3 (1.2-5.4) L 01/27/21 04:19 [place] # (Auto) 1.1 K/mm3 (0.0-0.8) H 01/27/21 04:19 Eos # (Auto) 0.6 K/mm3 (0.0-0.4) H 01/27/21 04:19 Baso # (Auto) 0.0 K/mm3 (0.0-0.1) 01/27/21 04:19 Add Manual Diff Complete 01/10/21 09:26 Total Counted 100 01/10/21 09:26 Seg Neutrophils % 78.0 % (40.0-70.0) H 01/27/21 04:19 Seg Neuts % (Manual) 95.0 % (40.0-70.0) H 01/10/21 09:26 Band Neutrophils % 1.0 % 01/10/21 09:26 Lymphocytes % (Manual) 3.0 % (13.4-35.0) L 01/10/21 09:26 Reactive Lymphs % (Man) 1.0 % 12/29/20 05:16 Monocytes % (Manual) 1.0 % (0.0-7.3) 01/10/21 09:26 Eosinophils % (Manual) 2.0 % (0.0-4.3) 12/29/20 05:16 Metamyelocytes % 2.0 % 12/29/20 05:16 Nucleated RBC % Not Reportable 01/10/21 09:26 Seg Neutrophils # 9.7 K/mm3 (1.8-7.7) H 01/27/21 04:19 Seg Neutrophils # Man 17.3 K/mm3 (1.8-7.7) H 01/10/21 09:26 Band Neutrophils # 0.2 K/mm3 01/10/21 09:26 Lymphocytes # (Manual) 0.5 K/mm3 (1.2-5.4) L 01/10/21 09:26 Abs React Lymphs (Man) 0.0 K/mm3 01/10/21 09:26 Monocytes # (Manual) 0.2 K/mm3 (0.0-0.8) 01/10/21 09:26 Eosinophils # (Manual) 0.0 K/mm3 (0.0-0.4) 01/10/21 09:26 Basophils # (Manual) 0.0 K/mm3 (0.0-0.1) 01/10/21 09:26 Metamyelocytes # 0.0 K/mm3 01/10/21 09:26 Myelocytes # 0.0 K/mm3 01/10/21 09:26 Promyelocytes # 0.0 K/mm3 01/10/21 09:26 Blast Cells # 0.0 K/mm3 01/10/21 09:26 WBC Morphology Not Reportable 01/10/21 09:26 Hypersegmented Neuts Not Reportable 01/10/21 09:26 Hyposegmented Neuts Not Reportable 01/10/21 09:26 Hypogranular Neuts Not Reportable 01/10/21 09:26 Smudge Cells Not Reportable 01/10/21 09:26 Toxic Granulation 1+ 01/10/21 09:26 Toxic Vacuolation Not Reportable 01/10/21 09:26 Dohle Bodies Not Reportable 01/10/21 09:26 Pelger-Huet Anomaly Not Reportable 01/10/21 09:26 Lamar Rods Not Reportable 01/10/21 09:26 Platelet Estimate Consistent w auto 01/10/21 09:26 Clumped Platelets Not Reportable 01/10/21 09:26 Plt Clumps, EDTA Not Reportable 01/10/21 09:26 Large Platelets Not Reportable 01/10/21 09:26 Giant Platelets Not Reportable 01/10/21 09:26 Platelet Satelliting Not Reportable 01/10/21 09:26 Plt Morphology Comment Not Reportable 01/10/21 09:26 RBC Morphology Not Reportable 01/10/21 09:26 Dimorphic RBCs Not Reportable 01/10/21 09:26 Polychromasia Not Reportable 01/10/21 09:26 Hypochromasia Not Reportable 01/10/21 09:26 Poikilocytosis Not Reportable 01/10/21 09:26 Anisocytosis 1+ 01/10/21 09:26 Microcytosis Not Reportable 01/10/21 09:26 Macrocytosis Not Reportable 01/10/21 09:26 Spherocytes Not Reportable 01/10/21 09:26 Pappenheimer Bodies Not Reportable 01/10/21 09:26 Sickle Cells Not Reportable 01/10/21 09:26 Target Cells Not Reportable 01/10/21 09:26 Tear Drop Cells Not Reportable 01/10/21 09:26 Ovalocytes Not Reportable 01/10/21 09:26 Helmet Cells Not Reportable 01/10/21 09:26 [place] Bodies Not Reportable 01/10/21 09:26 [place] Rings Not Reportable 01/10/21 09:26 [place] Cells Not Reportable 01/10/21 09:26 Bite Cells Not Reportable 01/10/21 09:26 Crenated Cell Not Reportable 01/10/21 09:26 Elliptocytes Not Reportable 01/10/21 09:26 Acanthocytes (Spur) Not Reportable 01/10/21 09:26 Rouleaux Not Reportable 01/10/21 09:26 Hemoglobin C Crystals Not Reportable 01/10/21 09:26 Schistocytes Not Reportable 01/10/21 09:26 Malaria parasites Not Reportable 01/10/21 09:26 Lucas Bodies Not Reportable 01/10/21 09:26 Hem Pathologist Commnt No 01/10/21 09:26 PT 16.9 Sec. (12.2-14.9) H 01/01/21 12:45 INR 1.39 (0.87-1.13) H 01/01/21 12:45 APTT 25.1 Sec. (24.2-36.6) 12/22/20 14:38 ABG pH 7.345 pH Units (7.350-7.450) L 01/07/21 17:14 POC ABG pCO2 41.4 mmHg (32.0-48.0) 01/07/21 03:07 ABG pCO2 40.3 mm Hg 01/07/21 17:14 POC ABG pO2 94.5 mmHg (83-108) 01/07/21 03:07 ABG pO2 67.4 mm Hg (80.0-90.0) L 01/07/21 17:14 POC ABG HCO3 22.7 01/07/21 03:07 ABG HCO3 21.5 mmol/L (20.0-26.0) 01/07/21 17:14 ABG O2 Saturation 94.3 % (95.0-99.0) L 01/07/21 17:14 ABG O2 Content 11.6 (0.0-44) 01/07/21 17:14 POC ABG Base Excess -2.7 01/07/21 03:07 ABG Base Excess -3.9 mmol/L (-2.0-3.0) L 01/07/21 17:14 ABG Hemoglobin 8.9 gm/dl (14.0-18.0) L 01/07/21 17:14 ABG Oxyhemoglobin 96.6 (94-98) 01/07/21 03:07 ABG Carboxyhemoglobin 1.5 % (0.0-5.0) 01/07/21 17:14 ABG Methemoglobin 0.6 % (0.0-1.5) 01/07/21 17:14 ABG Sodium 135.6 mmol/L (136.0-145.0) L 01/07/21 03:07 ABG Potassium 4.0 mmol/L (3.40-4.50) 01/07/21 03:07 ABG Chloride 102.0 mmol/L (98-107) 01/07/21 03:07 ABG Glucose 181 mg/dL (65-95) H 01/07/21 03:07 Oxyhemoglobin 92.3 % (95.0-99.0) L 01/07/21 17:14 Carboxyhemoglobin 0.7 (0.5-1.5) 01/07/21 03:07 FiO2 21 % 01/07/21 17:14 FiO2 % 45.0 01/07/21 03:07 Sodium 140 mmol/L (137-145) 01/29/21 06:45 Potassium 3.4 mmol/L (3.6-5.0) L 01/29/21 06:45 Chloride 100.3 mmol/L (98-107) 01/29/21 06:45 Carbon Dioxide 28 mmol/L (22-30) 01/29/21 06:45 Anion Gap 15 mmol/L 01/29/21 06:45 BUN 51 mg/dL (9-20) H 01/29/21 06:45 Creatinine 6.9 mg/dL (0.8-1.3) H 01/29/21 06:45 Estimated GFR 10 ml/min 01/29/21 06:45 BUN/Creatinine Ratio 7 % 01/29/21 06:45 Glucose 120 mg/dL (75-100) H 01/29/21 06:45 POC Glucose 111 mg/dL (70-105) H 01/29/21 04:54 Lactic Acid 1.10 mmol/L (0.7-2.0) 01/14/21 05:39 Calcium 9.1 mg/dL (8.4-10.2) 01/29/21 06:45 Phosphorus 2.10 mg/dL (2.5-4.5) L 01/29/21 06:45 Magnesium 1.70 mg/dL (1.7-2.3) 01/29/21 06:45 Total Bilirubin 0.50 mg/dL (0.1-1.2) 01/29/21 06:45 AST 23 units/L (5-40) 01/29/21 06:45 ALT 23 units/L (7-56) 01/29/21 06:45 Alkaline Phosphatase 182 units/L (35-129) H 01/29/21 06:45 Ammonia 30.0 umol/L (25-60) 12/22/20 14:38 Troponin T 0.021 ng/mL (0.00-0.029) 12/22/20 14:38 Total Protein 6.0 g/dL (6.3-8.2) L 01/29/21 06:45 Albumin 2.9 g/dL (3.9-5) L 01/29/21 06:45 Albumin/Globulin Ratio 0.9 % 01/29/21 06:45 Triglycerides 73 mg/dL (2-149) 01/18/21 04:19 Lipase 41 units/L (13-60) 12/22/20 14:38 Procalcitonin > 200.00 ng/mL (<0.15) 12/24/20 15:06 TSH 1.470 mlU/mL (0.270-4.200) 12/28/20 19:44 Arterial Blood Glucose 181 mg/dL (65-95) H 01/07/21 03:07 Arterial Blood Ionized Calcium 4.3 mg/dL (4.6-5.3) L 01/07/21 03:07 Urine Color Yellow (Yellow) 12/22/20 18:53 Urine Turbidity Clear (Clear) 12/22/20 18:53 Urine pH 7.0 (5.0-7.0) 12/22/20 18:53 Ur Specific [place] 1.012 (1.003-1.030) 12/22/20 18:53 Urine Protein >500 mg/dL (Negative) 12/22/20 18:53 Urine Glucose (UA) Neg mg/dL (Negative) 12/22/20 18:53 Urine Ketones Neg mg/dL (Negative) 12/22/20 18:53 Urine Blood Neg (Negative) 12/22/20 18:53 Urine Nitrite Neg (Negative) 12/22/20 18:53 Urine Bilirubin Neg (Negative) 12/22/20 18:53 Urine Urobilinogen < 2.0 mg/dL (<2.0) 12/22/20 18:53 Ur Leukocyte Esterase Neg (Negative) 12/22/20 18:53 Urine WBC (Auto) < 1.0 /HPF (0.0-6.0) 12/22/20 18:53 Urine RBC (Auto) 1.0 /HPF (0.0-6.0) 12/22/20 18:53 Fluid Type Dialysate 12/22/20 Unknown Fluid Color Colorless 12/22/20 Unknown Fluid Appearance Cloudy 12/22/20 Unknown Fluid WBC 208 /mm3 12/22/20 Unknown Fluid RBC 45 /mm3 12/22/20 Unknown Fluid Seg Neutrophils 82.0 % 12/22/20 Unknown Fluid Lymphocytes 11.0 % 12/22/20 Unknown Fluid Reactive Lymphs 0 % 12/22/20 Unknown Fluid Monocytes 7.0 % 12/22/20 Unknown Fluid Eosinophils 0 % 12/22/20 Unknown Fluid Basophils 0 % 12/22/20 Unknown Random Vancomycin 13.7 ug/mL (0-40.0) 12/26/20 Unknown Digoxin 0.8 ng/mL (0.9-2.0) L 01/11/21 05:18 Hepatitis A IgM Ab Non-reactive (NonReactive) 12/23/20 11:38 Hep Bs Antigen Non-reactive (Negative) 12/23/20 11:38 Hep B Core IgM Ab Non-reactive (NonReactive) 12/23/20 11:38 Hepatitis C Antibody Non-reactive (NonReactive) 12/23/20 11:38 Blood Type A POSITIVE 01/06/21 07:10 Antibody Screen Negative 01/06/21 07:10 Crossmatch See Detail 01/06/21 07:10 Jeffery/IV: Voiding Method Urinal Active Medications - Current Medications Current Medications: Generic Name Dose Route Start Last Admin Trade Name Freq PRN Reason Stop Dose Admin Acetaminophen 650 mg 12/31/20 15:30 01/21/21 05:28 Acetaminophen 650 Mg Rect Supp [place] 650 mg Q6H PRN Administration Non Cardiac Pain or Temp>100.5 Clonidine HCl 0.2 mg 01/11/21 10:00 01/25/21 09:42 Clonidine Tts 0.2 Mg/24 Hr Patch TD 0.2 mg We THOMAS Administration Dextrose 50 ml 01/14/21 17:59 01/18/21 15:10 Dextrose 50% In Water (25gm) 50 Ml Syringe IV 20 ml Q30MIN PRN Administration Hypoglycemia Protocol Digoxin 0.125 mg 01/09/21 12:00 01/27/21 11:32 Digoxin 0.5 Mg/2 Ml Inj IV 0.125 mg Q48H THOMAS Administration Diphenhydramine HCl 50 mg 01/20/21 10:10 01/29/21 02:07 Diphenhydramine 50 Mg/Ml Vial IV 50 mg Q6H PRN Administration Itching Famotidine 10 mg 12/24/20 13:00 01/28/21 21:23 Famotidine 20 Mg/2 Ml Inj IV 10 mg BID THOMAS Administration Haloperidol Lactate 5 mg 12/29/20 14:16 01/22/21 23:56 Haloperidol Lactate 5 Mg/1 Ml Inj IV 5 mg Q12H PRN Administration Agitation Heparin Sodium (Porcine) 5,000 unit 12/24/20 10:00 01/28/21 21:48 Heparin 5,000 Unit/1 Ml Vial SUB-Q 5,000 unit Q12HR THOMAS Administration Hydralazine HCl 10 mg 01/10/21 14:00 01/29/21 05:00 Hydralazine 20 Mg/1 Ml Inj IV 10 mg Q4HR THOMAS Administration Hydromorphone HCl 0.25 mg 01/09/21 10:53 01/29/21 02:06 Hydromorphone 1 Mg/1 Ml Inj IV 0.25 mg Q6H PRN Administration Pain , Severe (7-10) Hydrophilic Ointment 1 applic 12/31/20 06:39 01/11/21 21:28 Lip Therapy Vaseline TP 1 applic Q2HR PRN Administration Dry Lips Sodium Chloride 100 mls @ 999 mls/hr 01/19/21 09:30 Nacl 0.9% IV [place] PRN Hypotension Octreotide Acetate 100 mcg/ 101 mls @ 200 mls/hr 01/21/21 15:00 01/29/21 06:00 Sodium Chloride IV 200 mls/hr Q8H THOMAS Administration Sodium Chloride 100 mls @ 999 mls/hr 01/27/21 18:37 Nacl 0.9% IV [place] PRN Hypotension Amino Acids/Electrolytes/Dextrose 2,016 mls @ 84 mls/hr 01/28/21 20:00 01/28/21 21:27 Tpn Adult IV 84 mls/hr DAILY@1999 THOMAS Administration Protocol Insulin Glargine 5 units 01/18/21 22:00 01/28/21 21:50 Insulin Glargine 100 Units/Ml SUB-Q 5 units QHS THOMAS Administration Insulin Human Lispro 0 unit 01/03/21 12:00 01/29/21 04:59 Insulin Lispro 100 Unit/Ml SUB-Q Not Given Q6HR [facility] Protocol Metoprolol Tartrate 5 mg 12/30/20 12:00 01/29/21 05:00 Metoprolol Tartrate 5 Mg/5 Ml Inj IV 5 mg Q4HR THOMAS Administration Multi-Ingred Cream/Lotion/Oil/Oint 1 applic 12/31/20 06:39 Mineral Oil/Petrolatum, White Ophth Oint 3.5 Gm OU Q4HR PRN Dry Eye(s) Ondansetron HCl 4 mg 01/25/21 11:56 01/28/21 06:26 Ondansetron 4 Mg/2 Ml Inj IV 4 mg Q4H PRN Administration Nausea And Vomiting Scopolamine 1 each 01/15/21 11:00 01/27/21 10:10 Scopolamine Transdermal Patch 72 Hr TD 1 each Q3D THOMAS Administration Sodium Chloride 10 ml 12/22/20 22:00 01/28/21 21:24 Sodium Chloride 0.9% 10 Ml Flush Syringe IV 10 ml BID THOMAS Administration Sodium Chloride 10 ml 12/22/20 19:42 01/29/21 02:08 Sodium Chloride 0.9% 10 Ml Flush Syringe IV 10 ml PRN PRN Administration LINE FLUSH Nutrition/Malnutrition Assess - Dietary Evaluation Nutrition/Malnutrition Findings: Nutrition Notes Start: 12/24/20 12:36 Freq: Status: Active Protocol: Document 01/29/21 08:33 (Rec: 01/29/21 08:36 [email or web address]) Nutrition Notes Initial or Follow up Reassessment Current Diagnosis CKD (stage V CKD),Sepsis, Hypertension,Heart Failure, Small Bowel Obstruction Other Pertinent Diagnosis Peritonitis, SBO s/p resection Current Diet CPN at 84 ml/hr Labs/Tests K 3.4 Phos 2.1 Pertinent Medications Reviewed Height 5 ft 7 in Weight 80 kg [place] Body Weight (kg) 67.27 BMI 27.6 Weight Status Overweight Subjective/Other Information TPN day 35. Pt HD stopped early Saturday and was done yesterday. Percent of energy/protein needs met: 100%/100% Burn Absent Trauma Absent Current % PO Negligible Minimum of two criteria No #2 Nutrition Diagnosis Increased nutrient needs ( specify in comment below) Diagnosis Progress(for reassessment Continues documentation) #1 Nutrition Diagnosis Inadequate oral intake Diagnosis Progress(for reassessment Continues documentation) Is patient on ventilator? No Is Patient Ambulatory and/or Out of Bed No REE-([facility]-confined to bed) 1875.348 Kcal/Kg value to use for calculation 21 Approximate Energy Requirements Using 1680 kcal/Kg Calculation Used for Recommendations Kcal/kg Additional Notes Pro needs: 101-121 g/day (1.25 -1.5 g/kg AdjBW, 81kg) Fluid needs per MD. Nutrition Intervention Change Diet Order: Continue CPN Nutrition Support: Continous CPN at 84 ml/hr: MVI Kcal 1,674 Protein (gm) 121 Carbohydrates (gm) 350 Fat (gm) 0 Fluid (mL) 2,016 Fiber (gm) 0 Goal #1 Meet at least 75% of estimated energy and protein needs via CPN Anticipated Discharge Needs: continuous TPN at 84ml/hr Follow-Up By: 01/30/21 Additional Comments Labs in AM: CMP Mg, phos
--- NOTE | 2021-01-29 10:32 | Progress Note ---
Assessment and Plan Assessment: * ESRD previouasly on peritoneal dialysis; now on back up HD (on peritoneal dialysis for 2 years) * Small bowel obstruction --s/p ex-lap with jejuno-ileal anastamosis --s/p ex lap with extensive lysis of adhesions and two small bowel resections with primary anastamosis for SBO with necrotic segment small bowel. --s/p ex lap, resection of perforated anastamosis, washout and abthera wound vac placement. --s/p ex lap with right hemicolectomy. * Acute respiratory failure * Septic shock - resolved * Bacteremia - resolved * Hyperkalemia * Anemia of ESRD * Atrial fibrilation, new onset * Post op ileus Plan: * Continue HD MWF via left IJ permcath (12/27) * 3K bath with dialysis * UF as tolerated * Epogen 10k units w/ dialysis * Rate control per cardiology * Abx per primary team/ID * Nutrition per primary team * Maintatin MAP >65 * Surgery notes appreciated * He will also require outpatient hemodialysis chair prior to discharge * His BUN is much improved. Most likely due to catabolic state. Continue 4- hour of dialysis Subjective Date of service: 01/29/21 Principal diagnosis: Ac hypoxemic resp failure; Severe Sepsis; Peritonitis; Acute SBO; ESRD; CHF Interval history: Patient is comfortable. Uneventful hemodialysis yesterday. Objective - Vital Signs Vital signs: Vital Signs - 12hr 01/28/21 01/29/21 01/29/21 23:00 00:00 01:00 Temperature 99.8 F H Pulse Rate 72 77 72 Pulse Rate [ 76 From Monitor] Respiratory 19 19 15 Rate Blood Pressure 161/83 154/87 161/92 O2 Sat by Pulse 96 92 Oximetry 01/29/21 01/29/21 01/29/21 02:00 02:05 02:06 Temperature Pulse Rate 76 78 Pulse Rate [ 76 From Monitor] Respiratory 18 22 Rate Blood Pressure 163/89 O2 Sat by Pulse 92 98 Oximetry 01/29/21 01/29/21 01/29/21 02:07 02:36 03:00 Temperature Pulse Rate 78 76 Pulse Rate [ From Monitor] Respiratory 18 15 Rate Blood Pressure 163/89 149/80 O2 Sat by Pulse 91 Oximetry 01/29/21 01/29/21 01/29/21 03:40 05:00 08:00 Temperature 99.4 F 98.1 F Pulse Rate 75 Pulse Rate [ From Monitor] Respiratory Rate Blood Pressure 157/86 O2 Sat by Pulse Oximetry - General Appearance General appearance: well-developed, well-nourished, appears stated age EENT: PERRL, mucous membranes moist Neck: no JVD, no thyromegaly, no carotid bruit, supple, other (Left IJ PermCath in place) Respiratory: Present: Clear to Ascultation Cardiology: regular, normal heart rate, S1S2, no murmurs Gastrointestinal: other (Midline incision noted. Wound VAC in place. Drain noted in the right flank area) - Lab 01/27/21 04:19 01/29/21 06:45 Most recent lab results ABG pH 7.345 pH Units (7.350-7.450) L 01/07/21 17:14 ABG pCO2 40.3 mm Hg 01/07/21 17:14 ABG pO2 67.4 mm Hg (80.0-90.0) L 01/07/21 17:14 ABG HCO3 21.5 mmol/L (20.0-26.0) 01/07/21 17:14 ABG O2 Saturation 94.3 % (95.0-99.0) L 01/07/21 17:14 Calcium 9.1 mg/dL (8.4-10.2) 01/29/21 06:45 Phosphorus 2.10 mg/dL (2.5-4.5) L 01/29/21 06:45 Magnesium 1.70 mg/dL (1.7-2.3) 01/29/21 06:45 Medications & Allergies - Medications Allergies/Adverse Reactions: Allergies No Known Allergies Allergy (Verified 06/09/20 15:27) Home Medications: Home Medications Medication Instructions Recorded Confirmed Last Taken Type Albuterol Mdi (or & Nicu Only) 2 puff IH QID PRN #1 inhalation 04/01/17 11/01/20 10/31/20 09:00 Rx [ProAir HFA Inhaler] Calcium Acetate 667 mg PO DAILY 04/20/20 11/01/20 10/31/20 09:00 History Centrum Men's Tablet 1 tab PO DAILY 04/20/20 11/01/20 10/31/20 09:00 History Cinacalcet 30 mg PO DAILY 04/20/20 11/01/20 10/31/20 09:00 History Dialyvite with Zinc Tablet 1 tab PO DAILY 04/20/20 11/01/20 10/31/20 09:00 History Magnesium 250 mg PO BID 04/20/20 11/01/20 10/31/20 17:00 History Triamcinolone 0.1% 1 1000units TRANSDERMA DAILY 04/20/20 11/01/20 10/31/20 09:00 History Vit B12/Folic Acid/B6/Aa No.15 1,000 mg PO DAILY 04/20/20 11/01/20 10/31/20 09:00 History amLODIPine 10 mg PO DAILY 06/09/20 11/01/20 10/31/20 09:00 History AtorvaSTATin 40 mg PO HS 11/01/20 11/01/20 10/31/20 21:00 History Benadryl 25 mg PO HS 11/01/20 11/01/20 10/31/20 21:00 History Diclofenac 1 TRANSDERMA QID 11/01/20 10/31/20 19:00 History Fluticasone Propionate 1 spray INTRANASAL DAILY 11/01/20 11/01/20 10/31/20 09:00 History Vitamin D3 2,000 units 11/01/20 10/31/20 09:00 History carvediloL 12.5 mg PO DAILY 11/01/20 11/01/20 10/31/20 09:00 History hydrALAZINE 100 mg PO TID 11/01/20 11/01/20 10/31/20 19:00 History Active Medications: Generic Name Dose Route Start Last Admin Trade Name Freq PRN Reason Stop Dose Admin Acetaminophen 650 mg 12/31/20 15:30 01/21/21 05:28 Acetaminophen 650 Mg Rect Supp [place] 650 mg Q6H PRN Administration Non Cardiac Pain or Temp>100.5 Clonidine HCl 0.2 mg 01/11/21 10:00 01/25/21 09:42 Clonidine Tts 0.2 Mg/24 Hr Patch TD 0.2 mg We THOMAS Administration Dextrose 50 ml 01/14/21 17:59 01/18/21 15:10 Dextrose 50% In Water (25gm) 50 Ml Syringe IV 20 ml Q30MIN PRN Administration Hypoglycemia Protocol Digoxin 0.125 mg 01/09/21 12:00 01/27/21 11:32 Digoxin 0.5 Mg/2 Ml Inj IV 0.125 mg Q48H THOMAS Administration Diphenhydramine HCl 50 mg 01/20/21 10:10 01/29/21 02:07 Diphenhydramine 50 Mg/Ml Vial IV 50 mg Q6H PRN Administration Itching Famotidine 10 mg 12/24/20 13:00 01/28/21 21:23 Famotidine 20 Mg/2 Ml Inj IV 10 mg BID THOMAS Administration Haloperidol Lactate 5 mg 12/29/20 14:16 01/22/21 23:56 Haloperidol Lactate 5 Mg/1 Ml Inj IV 5 mg Q12H PRN Administration Agitation Heparin Sodium (Porcine) 5,000 unit 12/24/20 10:00 01/28/21 21:48 Heparin 5,000 Unit/1 Ml Vial SUB-Q 5,000 unit Q12HR THOMAS Administration Hydralazine HCl 10 mg 01/10/21 14:00 01/29/21 05:00 Hydralazine 20 Mg/1 Ml Inj IV 10 mg Q4HR THOMAS Administration Hydromorphone HCl 0.25 mg 01/09/21 10:53 01/29/21 02:06 Hydromorphone 1 Mg/1 Ml Inj IV 0.25 mg Q6H PRN Administration Pain , Severe (7-10) Hydrophilic Ointment 1 applic 12/31/20 06:39 01/11/21 21:28 Lip Therapy Vaseline TP 1 applic Q2HR PRN Administration Dry Lips Sodium Chloride 100 mls @ 999 mls/hr 01/19/21 09:30 Nacl 0.9% IV [place] PRN Hypotension Octreotide Acetate 100 mcg/ 101 mls @ 200 mls/hr 01/21/21 15:00 01/29/21 06:00 Sodium Chloride IV 200 mls/hr Q8H THOMAS Administration Sodium Chloride 100 mls @ 999 mls/hr 01/27/21 18:37 Nacl 0.9% IV [place] PRN Hypotension Amino Acids/Electrolytes/Dextrose 2,016 mls @ 84 mls/hr 01/28/21 20:00 01/28/21 21:27 Tpn Adult IV 01/29/21 19:59 84 mls/hr DAILY@2000 THOMAS Administration Protocol Amino Acids/Electrolytes/Dextrose 2,016 mls @ 84 mls/hr 01/29/21 20:00 Tpn Adult IV 01/30/21 19:59 DAILY@1999 [facility] Protocol Insulin Glargine 5 units 01/18/21 22:00 01/28/21 21:50 Insulin Glargine 100 Units/Ml SUB-Q 5 units QHS THOMAS Administration Insulin Human Lispro 0 unit 01/03/21 12:00 01/29/21 04:59 Insulin Lispro 100 Unit/Ml SUB-Q Not Given Q6HR [facility] Protocol Metoprolol Tartrate 5 mg 12/30/20 12:00 01/29/21 05:00 Metoprolol Tartrate 5 Mg/5 Ml Inj IV 5 mg Q4HR [facility] Administration Multi-Ingred Cream/Lotion/Oil/Oint 1 applic 12/31/20 06:39 Mineral Oil/Petrolatum, White Ophth Oint 3.5 Gm OU Q4HR PRN Dry Eye(s) Ondansetron HCl 4 mg 01/25/21 11:56 01/28/21 06:26 Ondansetron 4 Mg/2 Ml Inj IV 4 mg Q4H PRN Administration Nausea And Vomiting Scopolamine 1 each 01/15/21 11:00 01/27/21 10:10 Scopolamine Transdermal Patch 72 Hr TD 1 each Q3D THOMAS Administration Sodium Chloride 10 ml 12/22/20 22:00 01/28/21 21:24 Sodium Chloride 0.9% 10 Ml Flush Syringe IV 10 ml BID THOMAS Administration Sodium Chloride 10 ml 12/22/20 19:42 01/29/21 02:08 Sodium Chloride 0.9% 10 Ml Flush Syringe IV 10 ml PRN PRN Administration LINE FLUSH
[2021-01-29] MEDS: HEPARIN 5,000 UNIT/1 ML VIAL SUB-Q SCH ×2 (10:36→22:20)
[2021-01-29] MEDS: FAMOTIDINE 20 MG/2 ML INJ IV SCH ×2 (10:37→22:20)
--- NOTE | 2021-01-29 11:10 | Progress Note ---
Assessment and Plan 1. Paroxysmal atrial fibrillation 2. Essential hypertension 3. End-stage renal disease on hemodialysis 4. Anemia 5. Status post acute small bowel obstruction with exploratory laparotomy. Plan. Currently patient is in a sinus rhythm cardiac paez stable. Continue management as per hospitalist note. Subjective Date of service: 01/29/21 Principal diagnosis: Ac hypoxemic resp failure; Severe Sepsis; Peritonitis; Acute SBO; ESRD; CHF Interval history: No cardiac symptoms. Objective Vital Signs Temp Pulse Pulse Resp BP Pulse Ox 01/29/21 10:37 72 159/84 01/29/21 10:36 71 159/84 01/29/21 08:00 98.1 F 01/29/21 05:00 75 157/86 01/29/21 03:40 99.4 F 01/29/21 03:00 76 15 149/80 91 01/29/21 02:36 18 01/29/21 02:07 78 163/89 01/29/21 02:06 22 01/29/21 02:05 78 76 98 01/29/21 02:00 76 18 163/89 92 01/29/21 01:00 72 15 161/92 92 01/29/21 00:00 99.8 F H 77 76 19 154/87 96 01/28/21 23:00 72 19 161/83 01/28/21 22:00 74 15 154/82 93 01/28/21 21:58 73 19 145/85 97 01/28/21 21:47 74 145/85 01/28/21 21:00 77 17 145/85 94 01/28/21 20:00 99.4 F 82 76 19 154/85 95 01/28/21 19:00 77 12 144/77 01/28/21 18:00 73 17 153/80 01/28/21 17:00 74 14 157/74 98 01/28/21 16:00 98.7 F 76 76 16 154/77 92 01/28/21 15:00 71 19 146/74 98 01/28/21 14:00 88 17 146/81 95 01/28/21 13:20 98.6 F 74 22 142/72 01/28/21 13:15 70 146/73 01/28/21 13:00 85 15 137/72 97 01/28/21 12:45 69 137/72 01/28/21 12:30 72 143/69 06/05/21 12:15 72 138/77 01/28/21 12:00 98.6 F 70 15 137/74 96 01/28/21 11:45 69 134/70 01/28/21 11:30 72 136/75 01/28/21 11:22 144/75 01/28/21 11:21 72 144/75 01/28/21 11:15 72 144/75 - Physical Examination General: No Apparent Distress HEENT: Positive: PERRL Neck: Positive: neck supple Cardiac: Positive: Regular Rate, S1/S2, Laterally Displaced. Negative: S3, S4 Lungs: Positive: clear to auscultation, No Wheeze, Rales, Rhonchi Neuro: Positive: Grossly Intact Abdomen: Positive: Other (post op) Skin: Positive: Clear Extremities: Absent: edema - Labs and Meds Cardiac Enzymes 01/29/21 Range/Units 06:45 AST 23 (5-40) units/L Comprehensive Metabolic Panel 01/29/21 Range/Units 06:45 Sodium 140 (137-145) mmol/L Potassium 3.4 L (3.6-5.0) mmol/L Chloride 100.3 (98-107) mmol/L Carbon Dioxide 28 (22-30) mmol/L BUN 51 H (9-20) mg/dL Creatinine 6.9 H (0.8-1.3) mg/dL Glucose 120 H (75-100) mg/dL Calcium 9.1 (8.4-10.2) mg/dL AST 23 (5-40) units/L ALT 23 (7-56) units/L Alkaline Phosphatase 182 H (35-129) units/L Total Protein 6.0 L (6.3-8.2) g/dL Albumin 2.9 L (3.9-5) g/dL - Allied health notes Allied health notes reviewed: nursing
--- NOTE | 2021-01-29 11:20 | Progress Note ---
Assessment and Plan 60 yo M POD#36 s/p ex lap with extensive lysis of adhesions and two small bowel resections with primary anastamosis for SBO with necrotic segment small bowel. POD#27 s/p ex lap, resection of perforated anastamosis, washout and abthera wo und vac placement. POD#25 s/p ex lap with right hemicolectomy. POD#23 s/p ex lap, with jejunal-colonic anastamosis and closure of abdomen. Pt is afebrile and stable. Plan 1. Continue HARIS drain suction. Ongoing treatment for anastomotic leak/controlled low output fistula. HARIS drain must be secured and kept in place. 2. Maintain LIWS to NGT and monitor output. 3. continue q 8h ocreotide. 4. OOB 5. GI and DVT ppx 6. TPN 7. prn pain control Prognosis is guarded. Discussed with Dr. Lopez. Please call with questions. Subjective Date of service: 01/29/21 Narrative: Pt seen and examined. No acute complaints. No f/c. Objective Vital Signs - 12hr 01/29/21 01/29/21 01/29/21 00:00 01:00 02:00 Temperature 99.8 F H Pulse Rate 77 72 76 Pulse Rate [ 76 From Monitor] Respiratory 19 15 18 Rate Blood Pressure 154/87 161/92 163/89 O2 Sat by Pulse 96 92 92 Oximetry 01/29/21 01/29/21 01/29/21 02:05 02:06 02:07 Temperature Pulse Rate 78 78 Pulse Rate [ 76 From Monitor] Respiratory 22 Rate Blood Pressure 163/89 O2 Sat by Pulse 98 Oximetry 01/29/21 01/29/21 01/29/21 02:36 03:00 03:40 Temperature 99.4 F Pulse Rate 76 Pulse Rate [ From Monitor] Respiratory 18 15 Rate Blood Pressure 149/80 O2 Sat by Pulse 91 Oximetry 01/29/21 01/29/21 01/29/21 05:00 08:00 10:36 Temperature 98.1 F Pulse Rate 75 71 Pulse Rate [ From Monitor] Respiratory Rate Blood Pressure 157/86 159/84 O2 Sat by Pulse Oximetry 01/29/21 10:37 Temperature Pulse Rate 72 Pulse Rate [ From Monitor] Respiratory Rate Blood Pressure 159/84 O2 Sat by Pulse Oximetry - General physical appearance Narrative Exam: Gen: AAOx3. NAD ENT: NGT in place with bilious output CV: s1, S2+ Resp: even and unlabored Abd: soft, NT, ND. Incisional wound vac in place with serous drainage. HARIS - pu rulent/foul smelling output Ext: no c/c/e Output: Wound vac - 50cc/24h serous NGT - 400cc/24 hour bilious HARIS - 10cc/24h - Labs 01/27/21 04:19 01/29/21 06:45 Diabetes panel 01/29/21 Range/Units 06:45 Sodium 140 (137-145) mmol/L Potassium 3.4 L (3.6-5.0) mmol/L Chloride 100.3 (98-107) mmol/L Carbon Dioxide 28 (22-30) mmol/L BUN 51 H (9-20) mg/dL Creatinine 6.9 H (0.8-1.3) mg/dL Glucose 120 H (75-100) mg/dL Calcium 9.1 (8.4-10.2) mg/dL AST 23 (5-40) units/L ALT 23 (7-56) units/L Alkaline Phosphatase 182 H (35-129) units/L Total Protein 6.0 L (6.3-8.2) g/dL Albumin 2.9 L (3.9-5) g/dL Calcium panel 01/29/21 Range/Units 06:45 Calcium 9.1 (8.4-10.2) mg/dL Phosphorus 2.10 L (2.5-4.5) mg/dL Albumin 2.9 L (3.9-5) g/dL Pituitary panel 01/29/21 Range/Units 06:45 Sodium 140 (137-145) mmol/L Potassium 3.4 L (3.6-5.0) mmol/L Chloride 100.3 (98-107) mmol/L Carbon Dioxide 28 (22-30) mmol/L BUN 51 H (9-20) mg/dL Creatinine 6.9 H (0.8-1.3) mg/dL Glucose 120 H (75-100) mg/dL Calcium 9.1 (8.4-10.2) mg/dL Adrenal panel 01/29/21 Range/Units 06:45 Sodium 140 (137-145) mmol/L Potassium 3.4 L (3.6-5.0) mmol/L Chloride 100.3 (98-107) mmol/L Carbon Dioxide 28 (22-30) mmol/L BUN 51 H (9-20) mg/dL Creatinine 6.9 H (0.8-1.3) mg/dL Glucose 120 H (75-100) mg/dL Calcium 9.1 (8.4-10.2) mg/dL Total Bilirubin 0.50 (0.1-1.2) mg/dL AST 23 (5-40) units/L ALT 23 (7-56) units/L Alkaline Phosphatase 182 H (35-129) units/L Total Protein 6.0 L (6.3-8.2) g/dL Albumin 2.9 L (3.9-5) g/dL
[2021-01-29] MEDS: DIGOXIN 0.5 MG/2 ML INJ IV SCH (11:52)
[2021-01-29] MEDS ORDERED: MAGNESIUM SULFATE 2 GM/50 ML BAG IV ONE (13:00)
[2021-01-29] MEDS ORDERED: POTASSIUM PHOSPHATE 30 MMOL in SODIUM CHLORIDE 0.9% 500 ML 500 ML IV ONE (13:00)
--- NOTE | 2021-01-29 15:30 | Progress Note ---
Assessment and Plan Acute hypoxemic respiratory failure, on mechanical ventilatory support. Severe Sepsis Peritonitis Acute small-bowel obstruction with tissue necrosis. End-stage renal disease, on dialysis. Hypertension. Crohn's disease. Gastroesophageal reflux disease. Heart failure with reduced ejection fraction. Hyperkalemia. Anemia that is normocytic. Lactic acidosis. Oropharyngeal dysphagia - will transfer to surgical floor - no new issues respiratory-paez today, continue care as below; - J-P drain in situ - continue octreotide - follow clinically for S&S of infection re: fevers / WBC - continue total parenteral nutrition - continue wound care per RN/WCN - continue to wean supplemental oxygen for target O2 sat's > 92% acutely - aspiration precautions - continue bronchodilators with pulmonary hygiene per RT - wean per pulmonary driven protocols otherwise - HD/UF per nephrology prescription for toxin and volume control - avoid nephrotoxins, renally dose all medications - continue accuchecks with glycemic control per SSI for target blood glucose of <180 mg/dL; avoid hypoglycemia - continue to avoid benzodiazepine's, reduce the possibility of delirium - AB's per ID rec's - prn analgesia per pain score - Maintenance of sleep-wake cycle, avoid delirium - G.I. & VTE prophylaxis - PT/OT/ROM exercises - continue mobility protocols for pressure ulcer prophylaxis - Monitor hemodynamics closely - continue other care per attending / other consultants - discharge planning ongoing concurrently .... Re-evaluate in am & prn Subjective Date of service: 01/29/21 Principal diagnosis: Ac hypoxemic resp failure; Severe Sepsis; Peritonitis; Acute SBO; ESRD; CHF Interval history: Patient is seen today for: Ac hypoxemic resp failure; Severe Sepsis; Peritonitis; Acute SBO; ESRD on Dialysis; HTN; Crohn's disease; HFrEF Seen and examined at bedside; 24hour events reviewed; nursing and respiratory care staff consulted; no adverse overnight events reported to me; resting in bed; remains off oxygen; HARIS in place; denies chest pain or SOB Objective Vital Signs - 12hr 01/29/21 01/29/21 01/29/21 03:40 05:00 08:00 Temperature 99.4 F 98.1 F Pulse Rate 75 Blood Pressure 157/86 01/29/21 01/29/21 01/29/21 10:36 10:37 11:52 Temperature Pulse Rate 71 72 74 Blood Pressure 159/84 159/84 150/84 Constitutional: no acute distress, alert, other (elderly male with normal respiratory effort at rest) Eyes: non-icteric ENT: oropharynx moist Neck: supple, no lymphadenopathy, no JVD Effort: normal Ascultation: Bilateral: diminished breath sounds, rhonchi Percussion: Bilateral: not dull Cardiovascular: regular rate and rhythm, other (S1,S2) Gastrointestinal: hypoactive bowel sounds, soft, non-tender, non-distended (protuberant), other (Midline abdominal incision; + HARIS drain in place) Integumentary: other (Midline abdominal incision ) Extremities: no cyanosis, no edema, pulses normal, no ischemia or petechiae Neurologic: non-focal exam (grossly), pupils equal and round, CN II-XII normal Psychiatric: mood appropriate, affect normal CBC and BMP: 01/27/21 04:19 02/02/21 03:25 ABG, PT/INR, D-dimer: ABG ABG pH 7.345 pH Units (7.350-7.450) L 01/07/21 17:14 POC ABG pCO2 41.4 mmHg (32.0-48.0) 01/07/21 03:07 ABG pCO2 40.3 mm Hg 01/07/21 17:14 POC ABG pO2 94.5 mmHg (83-108) 01/07/21 03:07 ABG pO2 67.4 mm Hg (80.0-90.0) L 01/07/21 17:14 POC ABG HCO3 22.7 01/07/21 03:07 ABG O2 Saturation 94.3 % (95.0-99.0) L 01/07/21 17:14 PT/INR, D-dimer PT 16.9 Sec. (12.2-14.9) H 01/01/21 12:45 INR 1.39 (0.87-1.13) H 01/01/21 12:45 Abnormal lab findings: Abnormal Labs 12/22/20 12/22/20 12/22/20 14:38 14:38 14:38 WBC RBC Hgb 11.2 L Hct 35.0 L MCV MCHC RDW 16.7 H Plt Count Lymph % (Auto) Park % (Auto) Eos % (Auto) Lymph # (Auto) Park # (Auto) Eos # (Auto) Seg Neutrophils % Seg Neuts % (Manual) 94.0 H Lymphocytes % (Manual) 5.0 L Monocytes % (Manual) Seg Neutrophils # Seg Neutrophils # Man Lymphocytes # (Manual) 0.3 L Monocytes # (Manual) PT INR ABG pH POC ABG pCO2 POC ABG pO2 ABG pO2 ABG HCO3 ABG O2 Saturation ABG Base Excess ABG Hemoglobin ABG Oxyhemoglobin ABG Sodium ABG Potassium ABG Chloride ABG Glucose Oxyhemoglobin Sodium Potassium Chloride Carbon Dioxide BUN 58 H Creatinine 13.2 H Glucose 113 H POC Glucose Lactic Acid 3.60 H* Calcium Phosphorus Magnesium Total Bilirubin 1.30 H AST ALT Alkaline Phosphatase 155 H Total Protein Albumin Triglycerides Arterial Blood Glucose Arterial Blood Ionized Calcium Digoxin Crossmatch 12/22/20 12/22/20 12/23/20 16:26 17:47 05:22 WBC RBC Hgb Hct MCV MCHC RDW Plt Count Lymph % (Auto) Park % (Auto) Eos % (Auto) Lymph # (Auto) Park # (Auto) Eos # (Auto) Seg Neutrophils % Seg Neuts % (Manual) Lymphocytes % (Manual) Monocytes % (Manual) Seg Neutrophils # Seg Neutrophils # Man Lymphocytes # (Manual) Monocytes # (Manual) PT INR ABG pH POC ABG pCO2 POC ABG pO2 ABG pO2 ABG HCO3 ABG O2 Saturation ABG Base Excess ABG Hemoglobin ABG Oxyhemoglobin ABG Sodium ABG Potassium ABG Chloride ABG Glucose Oxyhemoglobin Sodium Potassium Chloride Carbon Dioxide BUN Creatinine Glucose POC Glucose Lactic Acid 2.80 H* 3.10 H* 2.30 H* Calcium Phosphorus Magnesium Total Bilirubin AST ALT Alkaline Phosphatase Total Protein Albumin Triglycerides Arterial Blood Glucose Arterial Blood Ionized Calcium Digoxin Crossmatch 12/23/20 12/23/20 12/23/20 05:22 05:22 06:35 WBC 12.1 H RBC Hgb 11.0 L Hct 33.7 L MCV MCHC RDW 16.9 H Plt Count Lymph % (Auto) Park % (Auto) Eos % (Auto) Lymph # (Auto) Park # (Auto) Eos # (Auto) Seg Neutrophils % Seg Neuts % (Manual) 93.0 H Lymphocytes % (Manual) 1.0 L Monocytes % (Manual) Seg Neutrophils # Seg Neutrophils # Man 11.3 H Lymphocytes # (Manual) 0.1 L Monocytes # (Manual) PT INR ABG pH POC ABG pCO2 POC ABG pO2 ABG pO2 ABG HCO3 ABG O2 Saturation ABG Base Excess ABG Hemoglobin ABG Oxyhemoglobin ABG Sodium ABG Potassium ABG Chloride ABG Glucose Oxyhemoglobin Sodium Potassium 5.7 H D Chloride Carbon Dioxide BUN 73 H Creatinine 14.2 H Glucose POC Glucose Lactic Acid 2.30 H* Calcium 7.9 L Phosphorus Magnesium Total Bilirubin 1.40 H AST 119 H ALT 130 H Alkaline Phosphatase 183 H Total Protein 6.1 L Albumin 3.6 L Triglycerides Arterial Blood Glucose Arterial Blood Ionized Calcium Digoxin Crossmatch 12/23/20 12/23/20 12/23/20 11:40 13:53 16:47 WBC RBC Hgb 10.0 L Hct 30.4 L MCV MCHC RDW Plt Count Lymph % (Auto) Park % (Auto) Eos % (Auto) Lymph # (Auto) Park # (Auto) Eos # (Auto) Seg Neutrophils % Seg Neuts % (Manual) Lymphocytes % (Manual) Monocytes % (Manual) Seg Neutrophils # Seg Neutrophils # Man Lymphocytes # (Manual) Monocytes # (Manual) PT INR ABG pH POC ABG pCO2 POC ABG pO2 137.5 H ABG pO2 ABG HCO3 ABG O2 Saturation ABG Base Excess ABG Hemoglobin 9.7 L ABG Oxyhemoglobin ABG Sodium 134.1 L ABG Potassium 6.6 H ABG Chloride ABG Glucose 103 H Oxyhemoglobin Sodium Potassium Chloride Carbon Dioxide BUN Creatinine Glucose POC Glucose Lactic Acid Calcium Phosphorus Magnesium Total Bilirubin AST ALT Alkaline Phosphatase Total Protein Albumin Triglycerides Arterial Blood Glucose 103 H Arterial Blood Ionized Calcium 3.8 L Digoxin Crossmatch See Detail 12/23/20 12/23/20 12/24/20 20:35 20:40 01:20 WBC RBC Hgb Hct MCV MCHC RDW Plt Count Lymph % (Auto) Park % (Auto) Eos % (Auto) Lymph # (Auto) Park # (Auto) Eos # (Auto) Seg Neutrophils % Seg Neuts % (Manual) Lymphocytes % (Manual) Monocytes % (Manual) Seg Neutrophils # Seg Neutrophils # Man Lymphocytes # (Manual) Monocytes # (Manual) PT INR ABG pH 7.252 L POC ABG pCO2 POC ABG pO2 ABG pO2 50.1 L ABG HCO3 ABG O2 Saturation 81.1 L ABG Base Excess -5.9 L ABG Hemoglobin 12.1 L ABG Oxyhemoglobin ABG Sodium ABG Potassium ABG Chloride ABG Glucose Oxyhemoglobin 78.6 L Sodium 134 L Potassium 6.9 H* D 6.3 H* Chloride Carbon Dioxide 18 L 20 L BUN 87 H 91 H Creatinine 15.3 H 15.3 H Glucose 103 H POC Glucose Lactic Acid Calcium 6.9 L 7.5 L Phosphorus Magnesium Total Bilirubin AST ALT Alkaline Phosphatase Total Protein Albumin Triglycerides Arterial Blood Glucose Arterial Blood Ionized Calcium Digoxin Crossmatch 12/24/20 12/24/20 12/24/20 04:00 10:29 10:29 WBC RBC 3.49 L Hgb 10.5 L Hct 31.2 L MCV MCHC RDW 17.5 H Plt Count 124 L Lymph % (Auto) 3.7 L Park % (Auto) 9.8 H Eos % (Auto) Lymph # (Auto) 0.2 L Park # (Auto) Eos # (Auto) Seg Neutrophils % 85.9 H Seg Neuts % (Manual) Lymphocytes % (Manual) Monocytes % (Manual) Seg Neutrophils # Seg Neutrophils # Man Lymphocytes # (Manual) Monocytes # (Manual) PT INR ABG pH POC ABG pCO2 28.1 L POC ABG pO2 ABG pO2 ABG HCO3 ABG O2 Saturation ABG Base Excess ABG Hemoglobin ABG Oxyhemoglobin ABG Sodium 133.9 L ABG Potassium 5.3 H ABG Chloride 108.0 H ABG Glucose Oxyhemoglobin Sodium Potassium 5.6 H Chloride Carbon Dioxide 19 L BUN 99 H Creatinine 16.9 H Glucose 52 L POC Glucose Lactic Acid Calcium 7.6 L Phosphorus Magnesium Total Bilirubin 3.50 H AST 67 H ALT 71 H Alkaline Phosphatase Total Protein 3.5 L D Albumin 2.1 L Triglycerides Arterial Blood Glucose Arterial Blood Ionized Calcium 4.0 L Digoxin Crossmatch 12/25/20 12/25/20 12/25/20 03:33 04:00 04:00 WBC 3.8 L RBC 2.90 L Hgb 8.6 L Hct 25.7 L MCV MCHC RDW 16.7 H Plt Count 113 L Lymph % (Auto) Park % (Auto) Eos % (Auto) Lymph # (Auto) Park # (Auto) Eos # (Auto) Seg Neutrophils % Seg Neuts % (Manual) Lymphocytes % (Manual) Monocytes % (Manual) Seg Neutrophils # Seg Neutrophils # Man Lymphocytes # (Manual) Monocytes # (Manual) PT INR ABG pH 7.544 H POC ABG pCO2 28.2 L POC ABG pO2 62.8 L ABG pO2 ABG HCO3 ABG O2 Saturation ABG Base Excess ABG Hemoglobin 9.3 L ABG Oxyhemoglobin 93.0 L ABG Sodium 130.3 L ABG Potassium ABG Chloride ABG Glucose 97 H Oxyhemoglobin Sodium Potassium Chloride Carbon Dioxide BUN 62 H Creatinine 11.4 H Glucose POC Glucose Lactic Acid Calcium 7.7 L Phosphorus 5.00 H Magnesium Total Bilirubin AST ALT Alkaline Phosphatase Total Protein Albumin Triglycerides Arterial Blood Glucose 97 H Arterial Blood Ionized Calcium 3.9 L Digoxin Crossmatch 12/26/20 12/26/20 12/27/20 04:46 Unknown 03:40 WBC 4.1 L RBC 2.61 L Hgb 7.8 L Hct 23.4 L MCV MCHC RDW 17.1 H Plt Count 119 L Lymph % (Auto) 5.3 L Park % (Auto) 10.6 H Eos % (Auto) Lymph # (Auto) 0.2 L Park # (Auto) Eos # (Auto) Seg Neutrophils % 78.8 H Seg Neuts % (Manual) Lymphocytes % (Manual) Monocytes % (Manual) Seg Neutrophils # Seg Neutrophils # Man Lymphocytes # (Manual) Monocytes # (Manual) PT INR ABG pH 7.333 L 7.332 L POC ABG pCO2 POC ABG pO2 ABG pO2 ABG HCO3 26.9 H ABG O2 Saturation ABG Base Excess -2.4 L ABG Hemoglobin 6.8 L 7.2 L ABG Oxyhemoglobin ABG Sodium ABG Potassium ABG Chloride ABG Glucose Oxyhemoglobin 93.0 L 93.1 L Sodium Potassium Chloride Carbon Dioxide BUN Creatinine Glucose POC Glucose Lactic Acid Calcium Phosphorus Magnesium Total Bilirubin AST ALT Alkaline Phosphatase Total Protein Albumin Triglycerides Arterial Blood Glucose Arterial Blood Ionized Calcium Digoxin Crossmatch 12/27/20 12/27/20 12/27/20 06:40 06:40 11:22 WBC 4.4 L RBC 2.49 L Hgb 7.4 L Hct 22.4 L MCV MCHC RDW 17.1 H Plt Count 111 L Lymph % (Auto) 6.7 L Park % (Auto) 12.6 H Eos % (Auto) Lymph # (Auto) 0.3 L Park # (Auto) Eos # (Auto) Seg Neutrophils % 77.6 H Seg Neuts % (Manual) Lymphocytes % (Manual) Monocytes % (Manual) Seg Neutrophils # Seg Neutrophils # Man Lymphocytes # (Manual) Monocytes # (Manual) PT INR ABG pH POC ABG pCO2 POC ABG pO2 ABG pO2 ABG HCO3 ABG O2 Saturation ABG Base Excess ABG Hemoglobin ABG Oxyhemoglobin ABG Sodium ABG Potassium ABG Chloride ABG Glucose Oxyhemoglobin Sodium Potassium Chloride Carbon Dioxide BUN 64 H Creatinine 9.8 H Glucose 147 H POC Glucose 134 H Lactic Acid Calcium 8.3 L Phosphorus 5.00 H Magnesium Total Bilirubin 3.70 H AST 72 H ALT Alkaline Phosphatase 142 H Total Protein 5.1 L D Albumin 2.9 L Triglycerides Arterial Blood Glucose Arterial Blood Ionized Calcium Digoxin Crossmatch 12/27/20 12/27/20 12/28/20 17:29 23:31 03:09 WBC RBC Hgb Hct MCV MCHC RDW Plt Count Lymph % (Auto) Park % (Auto) Eos % (Auto) Lymph # (Auto) Park # (Auto) Eos # (Auto) Seg Neutrophils % Seg Neuts % (Manual) Lymphocytes % (Manual) Monocytes % (Manual) Seg Neutrophils # Seg Neutrophils # Man Lymphocytes # (Manual) Monocytes # (Manual) PT INR ABG pH 7.474 H POC ABG pCO2 POC ABG pO2 ABG pO2 ABG HCO3 ABG O2 Saturation ABG Base Excess ABG Hemoglobin 7.8 L ABG Oxyhemoglobin ABG Sodium ABG Potassium ABG Chloride ABG Glucose Oxyhemoglobin Sodium Potassium Chloride Carbon Dioxide BUN Creatinine Glucose POC Glucose 121 H 131 H Lactic Acid Calcium Phosphorus Magnesium Total Bilirubin AST ALT Alkaline Phosphatase Total Protein Albumin Triglycerides Arterial Blood Glucose Arterial Blood Ionized Calcium Digoxin Crossmatch 12/28/20 12/28/20 12/28/20 05:37 05:40 05:40 WBC 4.3 L RBC 2.40 L Hgb 7.2 L Hct 21.5 L MCV MCHC RDW 17.4 H Plt Count 112 L Lymph % (Auto) 6.5 L Park % (Auto) 16.7 H Eos % (Auto) Lymph # (Auto) 0.3 L Park # (Auto) Eos # (Auto) Seg Neutrophils % 71.1 H Seg Neuts % (Manual) Lymphocytes % (Manual) Monocytes % (Manual) Seg Neutrophils # Seg Neutrophils # Man Lymphocytes # (Manual) Monocytes # (Manual) PT INR ABG pH POC ABG pCO2 POC ABG pO2 ABG pO2 ABG HCO3 ABG O2 Saturation ABG Base Excess ABG Hemoglobin ABG Oxyhemoglobin ABG Sodium ABG Potassium ABG Chloride ABG Glucose Oxyhemoglobin Sodium Potassium Chloride Carbon Dioxide BUN 85 H Creatinine 11.5 H Glucose 132 H POC Glucose 121 H Lactic Acid Calcium 8.2 L Phosphorus Magnesium 2.40 H Total Bilirubin 3.80 H AST 70 H ALT Alkaline Phosphatase 176 H Total Protein 5.0 L Albumin 2.9 L Triglycerides Arterial Blood Glucose Arterial Blood Ionized Calcium Digoxin Crossmatch 12/28/20 12/28/20 12/28/20 11:34 15:00 17:35 WBC RBC Hgb Hct MCV MCHC RDW Plt Count Lymph % (Auto) Park % (Auto) Eos % (Auto) Lymph # (Auto) Park # (Auto) Eos # (Auto) Seg Neutrophils % Seg Neuts % (Manual) Lymphocytes % (Manual) Monocytes % (Manual) Seg Neutrophils # Seg Neutrophils # Man Lymphocytes # (Manual) Monocytes # (Manual) PT INR ABG pH 7.461 H POC ABG pCO2 POC ABG pO2 72.2 L ABG pO2 ABG HCO3 ABG O2 Saturation ABG Base Excess ABG Hemoglobin 8.2 L ABG Oxyhemoglobin 93.6 L ABG Sodium 134.1 L ABG Potassium 3.2 L ABG Chloride ABG Glucose 135 H Oxyhemoglobin Sodium Potassium Chloride Carbon Dioxide BUN Creatinine Glucose POC Glucose 137 H 144 H Lactic Acid Calcium Phosphorus Magnesium Total Bilirubin AST ALT Alkaline Phosphatase Total Protein Albumin Triglycerides Arterial Blood Glucose 135 H Arterial Blood Ionized Calcium 4.4 L Digoxin Crossmatch 12/28/20 12/28/20 12/29/20 19:44 Unknown 00:21 WBC RBC Hgb Hct MCV MCHC RDW Plt Count Lymph % (Auto) Park % (Auto) Eos % (Auto) Lymph # (Auto) Park # (Auto) Eos # (Auto) Seg Neutrophils % Seg Neuts % (Manual) Lymphocytes % (Manual) Monocytes % (Manual) Seg Neutrophils # Seg Neutrophils # Man Lymphocytes # (Manual) Monocytes # (Manual) PT INR ABG pH 7.474 H POC ABG pCO2 POC ABG pO2 ABG pO2 ABG HCO3 ABG O2 Saturation ABG Base Excess ABG Hemoglobin 7.8 L ABG Oxyhemoglobin ABG Sodium 133.2 L ABG Potassium ABG Chloride ABG Glucose 139 H Oxyhemoglobin Sodium 135 L Potassium Chloride 96.6 L Carbon Dioxide BUN 47 H Creatinine 7.4 H Glucose 130 H POC Glucose 142 H Lactic Acid Calcium 8.3 L Phosphorus Magnesium Total Bilirubin AST ALT Alkaline Phosphatase Total Protein Albumin Triglycerides Arterial Blood Glucose 139 H Arterial Blood Ionized Calcium 4.3 L Digoxin Crossmatch 12/29/20 12/29/20 12/29/20 05:16 05:16 05:26 WBC RBC 2.53 L Hgb 7.7 L Hct 22.8 L MCV MCHC RDW 17.0 H Plt Count 130 L Lymph % (Auto) Park % (Auto) Eos % (Auto) Lymph # (Auto) Park # (Auto) Eos # (Auto) Seg Neutrophils % Seg Neuts % (Manual) 79.0 H Lymphocytes % (Manual) 9.0 L Monocytes % (Manual) Seg Neutrophils # Seg Neutrophils # Man Lymphocytes # (Manual) 0.6 L Monocytes # (Manual) PT INR ABG pH POC ABG pCO2 POC ABG pO2 ABG pO2 ABG HCO3 ABG O2 Saturation ABG Base Excess ABG Hemoglobin ABG Oxyhemoglobin ABG Sodium ABG Potassium ABG Chloride ABG Glucose Oxyhemoglobin Sodium Potassium 3.4 L Chloride 96.6 L Carbon Dioxide BUN 59 H Creatinine 8.3 H Glucose 127 H POC Glucose 141 H Lactic Acid Calcium 8.2 L Phosphorus Magnesium Total Bilirubin 3.00 H AST 88 H ALT Alkaline Phosphatase 188 H Total Protein 5.1 L Albumin 2.8 L Triglycerides Arterial Blood Glucose Arterial Blood Ionized Calcium Digoxin Crossmatch 12/29/20 12/29/20 12/29/20 11:33 17:29 23:22 WBC RBC Hgb Hct MCV MCHC RDW Plt Count Lymph % (Auto) Park % (Auto) Eos % (Auto) Lymph # (Auto) Park # (Auto) Eos # (Auto) Seg Neutrophils % Seg Neuts % (Manual) Lymphocytes % (Manual) Monocytes % (Manual) Seg Neutrophils # Seg Neutrophils # Man Lymphocytes # (Manual) Monocytes # (Manual) PT INR ABG pH POC ABG pCO2 POC ABG pO2 ABG pO2 ABG HCO3 ABG O2 Saturation ABG Base Excess ABG Hemoglobin ABG Oxyhemoglobin ABG Sodium ABG Potassium ABG Chloride ABG Glucose Oxyhemoglobin Sodium Potassium Chloride Carbon Dioxide BUN Creatinine Glucose POC Glucose 144 H 130 H 117 H Lactic Acid Calcium Phosphorus Magnesium Total Bilirubin AST ALT Alkaline Phosphatase Total Protein Albumin Triglycerides Arterial Blood Glucose Arterial Blood Ionized Calcium Digoxin Crossmatch 12/30/20 12/30/20 12/30/20 05:23 08:15 09:00 WBC RBC Hgb Hct MCV MCHC RDW Plt Count Lymph % (Auto) Park % (Auto) Eos % (Auto) Lymph # (Auto) Park # (Auto) Eos # (Auto) Seg Neutrophils % Seg Neuts % (Manual) Lymphocytes % (Manual) Monocytes % (Manual) Seg Neutrophils # Seg Neutrophils # Man Lymphocytes # (Manual) Monocytes # (Manual) PT INR ABG pH POC ABG pCO2 POC ABG pO2 ABG pO2 ABG HCO3 ABG O2 Saturation ABG Base Excess ABG Hemoglobin ABG Oxyhemoglobin ABG Sodium ABG Potassium ABG Chloride ABG Glucose Oxyhemoglobin Sodium 135 L Potassium Chloride 95.9 L Carbon Dioxide BUN 85 H Creatinine 10.6 H Glucose 128 H POC Glucose 135 H 127 H Lactic Acid Calcium 8.3 L Phosphorus Magnesium Total Bilirubin 2.40 H AST 85 H ALT Alkaline Phosphatase 216 H Total Protein 5.3 L Albumin 2.6 L Triglycerides 155 H Arterial Blood Glucose Arterial Blood Ionized Calcium Digoxin Crossmatch 12/30/20 12/30/20 12/30/20 09:00 11:53 15:49 WBC RBC 2.61 L Hgb 7.8 L Hct 23.7 L MCV MCHC RDW 17.3 H Plt Count Lymph % (Auto) Park % (Auto) Eos % (Auto) Lymph # (Auto) Park # (Auto) Eos # (Auto) Seg Neutrophils % Seg Neuts % (Manual) Lymphocytes % (Manual) Monocytes % (Manual) Seg Neutrophils # Seg Neutrophils # Man Lymphocytes # (Manual) Monocytes # (Manual) PT INR ABG pH POC ABG pCO2 POC ABG pO2 ABG pO2 ABG HCO3 ABG O2 Saturation ABG Base Excess ABG Hemoglobin ABG Oxyhemoglobin ABG Sodium ABG Potassium ABG Chloride ABG Glucose Oxyhemoglobin Sodium Potassium Chloride Carbon Dioxide BUN Creatinine Glucose POC Glucose 155 H 146 H Lactic Acid Calcium Phosphorus Magnesium Total Bilirubin AST ALT Alkaline Phosphatase Total Protein Albumin Triglycerides Arterial Blood Glucose Arterial Blood Ionized Calcium Digoxin Crossmatch 12/30/20 12/30/20 12/31/20 17:53 23:45 03:56 WBC RBC Hgb Hct MCV MCHC RDW Plt Count Lymph % (Auto) Park % (Auto) Eos % (Auto) Lymph # (Auto) Park # (Auto) Eos # (Auto) Seg Neutrophils % Seg Neuts % (Manual) Lymphocytes % (Manual) Monocytes % (Manual) Seg Neutrophils # Seg Neutrophils # Man Lymphocytes # (Manual) Monocytes # (Manual) PT INR ABG pH POC ABG pCO2 POC ABG pO2 49.4 L ABG pO2 ABG HCO3 ABG O2 Saturation ABG Base Excess ABG Hemoglobin 10.3 L ABG Oxyhemoglobin 84.2 L ABG Sodium 133.1 L ABG Potassium ABG Chloride ABG Glucose 173 H Oxyhemoglobin Sodium Potassium Chloride Carbon Dioxide BUN Creatinine Glucose POC Glucose 139 H 173 H Lactic Acid Calcium Phosphorus Magnesium Total Bilirubin AST ALT Alkaline Phosphatase Total Protein Albumin Triglycerides Arterial Blood Glucose 173 H Arterial Blood Ionized Calcium Digoxin Crossmatch 12/31/20 12/31/20 12/31/20 05:07 06:51 06:51 WBC 20.3 H RBC 3.32 L Hgb 9.8 L Hct 30.3 L D MCV MCHC RDW 17.3 H Plt Count Lymph % (Auto) Park % (Auto) Eos % (Auto) Lymph # (Auto) Park # (Auto) Eos # (Auto) Seg Neutrophils % Seg Neuts % (Manual) 87.0 H Lymphocytes % (Manual) 10.0 L Monocytes % (Manual) Seg Neutrophils # Seg Neutrophils # Man 17.7 H Lymphocytes # (Manual) Monocytes # (Manual) PT INR ABG pH POC ABG pCO2 POC ABG pO2 ABG pO2 ABG HCO3 ABG O2 Saturation ABG Base Excess ABG Hemoglobin ABG Oxyhemoglobin ABG Sodium ABG Potassium ABG Chloride ABG Glucose Oxyhemoglobin Sodium Potassium 5.2 H D Chloride Carbon Dioxide BUN 62 H Creatinine 8.4 H Glucose 116 H POC Glucose 120 H Lactic Acid Calcium Phosphorus Magnesium 1.60 L Total Bilirubin AST ALT Alkaline Phosphatase Total Protein Albumin Triglycerides Arterial Blood Glucose Arterial Blood Ionized Calcium Digoxin Crossmatch 12/31/20 12/31/20 12/31/20 09:38 12:19 12:22 WBC RBC Hgb Hct MCV MCHC RDW Plt Count Lymph % (Auto) Park % (Auto) Eos % (Auto) Lymph # (Auto) Park # (Auto) Eos # (Auto) Seg Neutrophils % Seg Neuts % (Manual) Lymphocytes % (Manual) Monocytes % (Manual) Seg Neutrophils # Seg Neutrophils # Man Lymphocytes # (Manual) Monocytes # (Manual) PT INR ABG pH POC ABG pCO2 POC ABG pO2 ABG pO2 354.0 H ABG HCO3 ABG O2 Saturation 99.6 H ABG Base Excess ABG Hemoglobin 9.1 L ABG Oxyhemoglobin ABG Sodium ABG Potassium ABG Chloride ABG Glucose Oxyhemoglobin Sodium Potassium 5.2 H Chloride Carbon Dioxide BUN Creatinine Glucose POC Glucose 132 H Lactic Acid Calcium Phosphorus Magnesium Total Bilirubin AST ALT Alkaline Phosphatase Total Protein Albumin Triglycerides Arterial Blood Glucose Arterial Blood Ionized Calcium Digoxin Crossmatch 12/31/20 01/01/21 01/01/21 23:23 03:03 05:04 WBC RBC Hgb Hct MCV MCHC RDW Plt Count Lymph % (Auto) Park % (Auto) Eos % (Auto) Lymph # (Auto) Park # (Auto) Eos # (Auto) Seg Neutrophils % Seg Neuts % (Manual) Lymphocytes % (Manual) Monocytes % (Manual) Seg Neutrophils # Seg Neutrophils # Man Lymphocytes # (Manual) Monocytes # (Manual) PT INR ABG pH POC ABG pCO2 POC ABG pO2 79.6 L ABG pO2 ABG HCO3 ABG O2 Saturation ABG Base Excess ABG Hemoglobin 9.2 L ABG Oxyhemoglobin ABG Sodium 131.6 L ABG Potassium 5.8 H ABG Chloride ABG Glucose 177 H Oxyhemoglobin Sodium Potassium Chloride Carbon Dioxide BUN Creatinine Glucose POC Glucose 174 H 167 H Lactic Acid Calcium Phosphorus Magnesium Total Bilirubin AST ALT Alkaline Phosphatase Total Protein Albumin Triglycerides Arterial Blood Glucose 177 H Arterial Blood Ionized Calcium Digoxin Crossmatch 01/01/21 01/01/21 01/01/21 07:31 07:31 11:31 WBC 26.1 H RBC 2.95 L Hgb 8.6 L Hct 27.1 L MCV MCHC RDW 18.2 H Plt Count Lymph % (Auto) Park % (Auto) Eos % (Auto) Lymph # (Auto) Park # (Auto) Eos # (Auto) Seg Neutrophils % Seg Neuts % (Manual) 96.0 H Lymphocytes % (Manual) 4.0 L Monocytes % (Manual) Seg Neutrophils # Seg Neutrophils # Man 25.1 H Lymphocytes # (Manual) 1.0 L Monocytes # (Manual) PT INR ABG pH POC ABG pCO2 POC ABG pO2 ABG pO2 ABG HCO3 ABG O2 Saturation ABG Base Excess ABG Hemoglobin ABG Oxyhemoglobin ABG Sodium ABG Potassium ABG Chloride ABG Glucose Oxyhemoglobin Sodium Potassium 6.0 H Chloride Carbon Dioxide 21 L BUN 89 H Creatinine 10.5 H Glucose 179 H POC Glucose Lactic Acid Calcium Phosphorus Magnesium Total Bilirubin AST ALT Alkaline Phosphatase Total Protein Albumin Triglycerides Arterial Blood Glucose Arterial Blood Ionized Calcium Digoxin Crossmatch See Detail 01/01/21 01/01/21 01/01/21 11:51 12:45 16:52 WBC RBC Hgb Hct MCV MCHC RDW Plt Count Lymph % (Auto) Park % (Auto) Eos % (Auto) Lymph # (Auto) Park # (Auto) Eos # (Auto) Seg Neutrophils % Seg Neuts % (Manual) Lymphocytes % (Manual) Monocytes % (Manual) Seg Neutrophils # Seg Neutrophils # Man Lymphocytes # (Manual) Monocytes # (Manual) PT 16.9 H INR 1.39 H ABG pH POC ABG pCO2 POC ABG pO2 ABG pO2 ABG HCO3 ABG O2 Saturation ABG Base Excess ABG Hemoglobin ABG Oxyhemoglobin ABG Sodium ABG Potassium ABG Chloride ABG Glucose Oxyhemoglobin Sodium Potassium Chloride Carbon Dioxide BUN Creatinine Glucose POC Glucose 157 H 177 H Lactic Acid Calcium Phosphorus Magnesium Total Bilirubin AST ALT Alkaline Phosphatase Total Protein Albumin Triglycerides Arterial Blood Glucose Arterial Blood Ionized Calcium Digoxin Crossmatch 01/01/21 01/01/21 01/01/21 17:58 17:58 20:12 WBC 26.9 H RBC 3.14 L Hgb 9.3 L Hct 29.6 L MCV MCHC RDW 17.5 H Plt Count Lymph % (Auto) Park % (Auto) Eos % (Auto) Lymph # (Auto) Park # (Auto) Eos # (Auto) Seg Neutrophils % Seg Neuts % (Manual) 84.0 H Lymphocytes % (Manual) 4.0 L Monocytes % (Manual) 12.0 H Seg Neutrophils # Seg Neutrophils # Man 22.6 H Lymphocytes # (Manual) 1.1 L Monocytes # (Manual) 3.2 H PT INR ABG pH POC ABG pCO2 POC ABG pO2 ABG pO2 ABG HCO3 ABG O2 Saturation ABG Base Excess ABG Hemoglobin ABG Oxyhemoglobin ABG Sodium ABG Potassium ABG Chloride ABG Glucose Oxyhemoglobin Sodium 136 L Potassium 6.2 H* Chloride Carbon Dioxide 21 L BUN 92 H Creatinine 10.8 H Glucose 171 H POC Glucose 288 H Lactic Acid Calcium Phosphorus Magnesium Total Bilirubin 2.10 H AST 223 H ALT 100 H Alkaline Phosphatase 206 H Total Protein 4.8 L Albumin 1.9 L Triglycerides Arterial Blood Glucose Arterial Blood Ionized Calcium Digoxin Crossmatch 01/02/21 01/02/21 01/02/21 00:12 00:45 03:05 WBC RBC Hgb Hct MCV MCHC RDW Plt Count Lymph % (Auto) Park % (Auto) Eos % (Auto) Lymph # (Auto) Park # (Auto) Eos # (Auto) Seg Neutrophils % Seg Neuts % (Manual) Lymphocytes % (Manual) Monocytes % (Manual) Seg Neutrophils # Seg Neutrophils # Man Lymphocytes # (Manual) Monocytes # (Manual) PT INR ABG pH POC ABG pCO2 POC ABG pO2 81.8 L ABG pO2 ABG HCO3 ABG O2 Saturation ABG Base Excess ABG Hemoglobin 8.0 L ABG Oxyhemoglobin ABG Sodium 129.8 L ABG Potassium 5.4 H ABG Chloride ABG Glucose 257 H Oxyhemoglobin Sodium 136 L Potassium 5.8 H Chloride 96.6 L Carbon Dioxide BUN 95 H Creatinine 11.2 H Glucose 238 H POC Glucose 223 H Lactic Acid Calcium Phosphorus Magnesium Total Bilirubin AST ALT Alkaline Phosphatase Total Protein Albumin Triglycerides Arterial Blood Glucose 257 H Arterial Blood Ionized Calcium 4.0 L Digoxin Crossmatch 01/02/21 01/02/21 01/02/21 06:25 08:00 08:00 WBC 17.5 H RBC 2.31 L Hgb 6.7 L Hct 22.1 L D MCV 96 H MCHC 30 L RDW 18.4 H Plt Count Lymph % (Auto) Park % (Auto) Eos % (Auto) Lymph # (Auto) Park # (Auto) Eos # (Auto) Seg Neutrophils % Seg Neuts % (Manual) Lymphocytes % (Manual) Monocytes % (Manual) Seg Neutrophils # Seg Neutrophils # Man Lymphocytes # (Manual) Monocytes # (Manual) PT INR ABG pH POC ABG pCO2 POC ABG pO2 ABG pO2 ABG HCO3 ABG O2 Saturation ABG Base Excess ABG Hemoglobin ABG Oxyhemoglobin ABG Sodium ABG Potassium ABG Chloride ABG Glucose Oxyhemoglobin Sodium 134 L Potassium 5.3 H Chloride 92.9 L Carbon Dioxide BUN 101 H Creatinine 10.9 H Glucose 560 H* POC Glucose 239 H Lactic Acid Calcium 7.6 L Phosphorus 6.50 H Magnesium Total Bilirubin AST ALT Alkaline Phosphatase Total Protein Albumin Triglycerides Arterial Blood Glucose Arterial Blood Ionized Calcium Digoxin Crossmatch 01/02/21 01/02/21 01/02/21 11:26 15:00 17:57 WBC RBC Hgb Hct MCV MCHC RDW Plt Count Lymph % (Auto) Park % (Auto) Eos % (Auto) Lymph # (Auto) Park # (Auto) Eos # (Auto) Seg Neutrophils % Seg Neuts % (Manual) Lymphocytes % (Manual) Monocytes % (Manual) Seg Neutrophils # Seg Neutrophils # Man Lymphocytes # (Manual) Monocytes # (Manual) PT INR ABG pH POC ABG pCO2 POC ABG pO2 ABG pO2 ABG HCO3 ABG O2 Saturation ABG Base Excess ABG Hemoglobin ABG Oxyhemoglobin ABG Sodium ABG Potassium ABG Chloride ABG Glucose Oxyhemoglobin Sodium Potassium Chloride Carbon Dioxide BUN Creatinine Glucose 241 H POC Glucose 205 H 272 H Lactic Acid Calcium Phosphorus Magnesium Total Bilirubin AST ALT Alkaline Phosphatase Total Protein Albumin Triglycerides Arterial Blood Glucose Arterial Blood Ionized Calcium Digoxin Crossmatch 01/02/21 01/02/21 01/03/21 23:25 23:43 03:45 WBC RBC Hgb Hct MCV MCHC RDW Plt Count Lymph % (Auto) Park % (Auto) Eos % (Auto) Lymph # (Auto) Park # (Auto) Eos # (Auto) Seg Neutrophils % Seg Neuts % (Manual) Lymphocytes % (Manual) Monocytes % (Manual) Seg Neutrophils # Seg Neutrophils # Man Lymphocytes # (Manual) Monocytes # (Manual) PT INR ABG pH POC ABG pCO2 48.3 H POC ABG pO2 134.4 H 79.7 L ABG pO2 ABG HCO3 ABG O2 Saturation ABG Base Excess ABG Hemoglobin 7.7 L 8.6 L ABG Oxyhemoglobin ABG Sodium 131.8 L 130.4 L ABG Potassium ABG Chloride 97.0 L ABG Glucose 218 H 238 H Oxyhemoglobin Sodium Potassium Chloride Carbon Dioxide BUN Creatinine Glucose POC Glucose 218 H Lactic Acid Calcium Phosphorus Magnesium Total Bilirubin AST ALT Alkaline Phosphatase Total Protein Albumin Triglycerides Arterial Blood Glucose 218 H 238 H Arterial Blood Ionized Calcium 4.1 L 4.0 L Digoxin Crossmatch 01/03/21 01/03/21 01/03/21 04:37 04:37 05:39 WBC 15.2 H RBC 2.38 L Hgb 7.3 L Hct 21.6 L MCV MCHC RDW 16.6 H Plt Count Lymph % (Auto) Park % (Auto) Eos % (Auto) Lymph # (Auto) Park # (Auto) Eos # (Auto) Seg Neutrophils % Seg Neuts % (Manual) Lymphocytes % (Manual) Monocytes % (Manual) Seg Neutrophils # Seg Neutrophils # Man Lymphocytes # (Manual) Monocytes # (Manual) PT INR ABG pH POC ABG pCO2 POC ABG pO2 ABG pO2 ABG HCO3 ABG O2 Saturation ABG Base Excess ABG Hemoglobin ABG Oxyhemoglobin ABG Sodium ABG Potassium ABG Chloride ABG Glucose Oxyhemoglobin Sodium 136 L Potassium Chloride 94.5 L Carbon Dioxide BUN 69 H Creatinine 8.0 H Glucose 219 H POC Glucose 222 H Lactic Acid Calcium 7.8 L Phosphorus 4.80 H D Magnesium Total Bilirubin AST ALT Alkaline Phosphatase Total Protein Albumin Triglycerides Arterial Blood Glucose Arterial Blood Ionized Calcium Digoxin Crossmatch 01/03/21 01/03/21 01/03/21 11:29 18:49 23:37 WBC RBC Hgb Hct MCV MCHC RDW Plt Count Lymph % (Auto) Park % (Auto) Eos % (Auto) Lymph # (Auto) Park # (Auto) Eos # (Auto) Seg Neutrophils % Seg Neuts % (Manual) Lymphocytes % (Manual) Monocytes % (Manual) Seg Neutrophils # Seg Neutrophils # Man Lymphocytes # (Manual) Monocytes # (Manual) PT INR ABG pH POC ABG pCO2 POC ABG pO2 ABG pO2 ABG HCO3 ABG O2 Saturation ABG Base Excess ABG Hemoglobin ABG Oxyhemoglobin ABG Sodium ABG Potassium ABG Chloride ABG Glucose Oxyhemoglobin Sodium Potassium Chloride Carbon Dioxide BUN Creatinine Glucose POC Glucose 232 H 129 H 140 H Lactic Acid Calcium Phosphorus Magnesium Total Bilirubin AST ALT Alkaline Phosphatase Total Protein Albumin Triglycerides Arterial Blood Glucose Arterial Blood Ionized Calcium Digoxin Crossmatch 01/04/21 01/04/21 01/04/21 03:22 04:38 04:38 WBC 11.1 H RBC 2.89 L Hgb 8.9 L Hct 26.2 L MCV MCHC RDW 16.1 H Plt Count Lymph % (Auto) Park % (Auto) Eos % (Auto) Lymph # (Auto) Park # (Auto) Eos # (Auto) Seg Neutrophils % Seg Neuts % (Manual) Lymphocytes % (Manual) Monocytes % (Manual) Seg Neutrophils # Seg Neutrophils # Man Lymphocytes # (Manual) Monocytes # (Manual) PT INR ABG pH POC ABG pCO2 POC ABG pO2 82.3 L ABG pO2 ABG HCO3 ABG O2 Saturation ABG Base Excess ABG Hemoglobin 8.9 L ABG Oxyhemoglobin ABG Sodium 130.5 L ABG Potassium ABG Chloride ABG Glucose 124 H Oxyhemoglobin Sodium Potassium Chloride 95.5 L Carbon Dioxide BUN 87 H Creatinine 9.7 H Glucose 118 H POC Glucose Lactic Acid Calcium 7.7 L Phosphorus Magnesium Total Bilirubin AST ALT Alkaline Phosphatase Total Protein Albumin Triglycerides Arterial Blood Glucose 124 H Arterial Blood Ionized Calcium 3.5 L Digoxin Crossmatch 01/04/21 01/04/21 01/04/21 05:39 12:04 18:04 WBC RBC Hgb Hct MCV MCHC RDW Plt Count Lymph % (Auto) Park % (Auto) Eos % (Auto) Lymph # (Auto) Park # (Auto) Eos # (Auto) Seg Neutrophils % Seg Neuts % (Manual) Lymphocytes % (Manual) Monocytes % (Manual) Seg Neutrophils # Seg Neutrophils # Man Lymphocytes # (Manual) Monocytes # (Manual) PT INR ABG pH POC ABG pCO2 POC ABG pO2 ABG pO2 ABG HCO3 ABG O2 Saturation ABG Base Excess ABG Hemoglobin ABG Oxyhemoglobin ABG Sodium ABG Potassium ABG Chloride ABG Glucose Oxyhemoglobin Sodium Potassium Chloride Carbon Dioxide BUN Creatinine Glucose POC Glucose 134 H 125 H 131 H Lactic Acid Calcium Phosphorus Magnesium Total Bilirubin AST ALT Alkaline Phosphatase Total Protein Albumin Triglycerides Arterial Blood Glucose Arterial Blood Ionized Calcium Digoxin Crossmatch 01/04/21 01/05/21 01/05/21 23:41 03:23 04:49 WBC RBC Hgb Hct MCV MCHC RDW Plt Count Lymph % (Auto) Park % (Auto) Eos % (Auto) Lymph # (Auto) Park # (Auto) Eos # (Auto) Seg Neutrophils % Seg Neuts % (Manual) Lymphocytes % (Manual) Monocytes % (Manual) Seg Neutrophils # Seg Neutrophils # Man Lymphocytes # (Manual) Monocytes # (Manual) PT INR ABG pH POC ABG pCO2 POC ABG pO2 62.8 L ABG pO2 ABG HCO3 ABG O2 Saturation ABG Base Excess ABG Hemoglobin 9.5 L ABG Oxyhemoglobin 92.0 L ABG Sodium 130.1 L ABG Potassium ABG Chloride ABG Glucose 148 H Oxyhemoglobin Sodium Potassium Chloride 96.9 L Carbon Dioxide BUN 57 H Creatinine 6.7 H Glucose 135 H POC Glucose 132 H Lactic Acid Calcium 8.0 L Phosphorus Magnesium Total Bilirubin AST ALT Alkaline Phosphatase Total Protein Albumin Triglycerides Arterial Blood Glucose 148 H Arterial Blood Ionized Calcium 4.1 L Digoxin Crossmatch 01/05/21 01/05/21 01/05/21 05:04 11:48 12:39 WBC RBC 3.03 L Hgb 9.3 L Hct 27.6 L MCV MCHC RDW 16.5 H Plt Count Lymph % (Auto) Park % (Auto) Eos % (Auto) Lymph # (Auto) Park # (Auto) Eos # (Auto) Seg Neutrophils % Seg Neuts % (Manual) Lymphocytes % (Manual) Monocytes % (Manual) Seg Neutrophils # Seg Neutrophils # Man Lymphocytes # (Manual) Monocytes # (Manual) PT INR ABG pH POC ABG pCO2 POC ABG pO2 ABG pO2 ABG HCO3 ABG O2 Saturation ABG Base Excess ABG Hemoglobin ABG Oxyhemoglobin ABG Sodium ABG Potassium ABG Chloride ABG Glucose Oxyhemoglobin Sodium Potassium Chloride Carbon Dioxide BUN Creatinine Glucose POC Glucose 147 H 162 H Lactic Acid Calcium Phosphorus Magnesium Total Bilirubin AST ALT Alkaline Phosphatase Total Protein Albumin Triglycerides Arterial Blood Glucose Arterial Blood Ionized Calcium Digoxin Crossmatch 01/05/21 01/05/21 01/06/21 17:50 23:32 04:15 WBC RBC Hgb Hct MCV MCHC RDW Plt Count Lymph % (Auto) Park % (Auto) Eos % (Auto) Lymph # (Auto) Park # (Auto) Eos # (Auto) Seg Neutrophils % Seg Neuts % (Manual) Lymphocytes % (Manual) Monocytes % (Manual) Seg Neutrophils # Seg Neutrophils # Man Lymphocytes # (Manual) Monocytes # (Manual) PT INR ABG pH POC ABG pCO2 POC ABG pO2 ABG pO2 191.0 H ABG HCO3 ABG O2 Saturation 99.2 H ABG Base Excess ABG Hemoglobin 9.0 L ABG Oxyhemoglobin ABG Sodium ABG Potassium ABG Chloride ABG Glucose Oxyhemoglobin Sodium Potassium Chloride Carbon Dioxide BUN Creatinine Glucose POC Glucose 155 H 115 H Lactic Acid Calcium Phosphorus Magnesium Total Bilirubin AST ALT Alkaline Phosphatase Total Protein Albumin Triglycerides Arterial Blood Glucose Arterial Blood Ionized Calcium Digoxin Crossmatch 01/06/21 01/06/21 01/06/21 04:45 05:56 07:03 WBC RBC 2.95 L Hgb 9.1 L Hct 26.8 L MCV MCHC RDW 16.8 H Plt Count Lymph % (Auto) Park % (Auto) Eos % (Auto) Lymph # (Auto) Park # (Auto) Eos # (Auto) Seg Neutrophils % Seg Neuts % (Manual) Lymphocytes % (Manual) Monocytes % (Manual) Seg Neutrophils # Seg Neutrophils # Man Lymphocytes # (Manual) Monocytes # (Manual) PT INR ABG pH POC ABG pCO2 POC ABG pO2 ABG pO2 ABG HCO3 ABG O2 Saturation ABG Base Excess ABG Hemoglobin ABG Oxyhemoglobin ABG Sodium ABG Potassium ABG Chloride ABG Glucose Oxyhemoglobin Sodium 135 L Potassium Chloride 95.9 L Carbon Dioxide BUN 82 H Creatinine 8.7 H Glucose 127 H POC Glucose 136 H Lactic Acid Calcium 8.3 L Phosphorus Magnesium Total Bilirubin AST ALT Alkaline Phosphatase Total Protein Albumin Triglycerides Arterial Blood Glucose Arterial Blood Ionized Calcium Digoxin Crossmatch 01/06/21 01/06/21 01/06/21 07:10 11:04 13:38 WBC RBC Hgb Hct MCV MCHC RDW Plt Count Lymph % (Auto) Park % (Auto) Eos % (Auto) Lymph # (Auto) Park # (Auto) Eos # (Auto) Seg Neutrophils % Seg Neuts % (Manual) Lymphocytes % (Manual) Monocytes % (Manual) Seg Neutrophils # Seg Neutrophils # Man Lymphocytes # (Manual) Monocytes # (Manual) PT INR ABG pH POC ABG pCO2 POC ABG pO2 ABG pO2 ABG HCO3 ABG O2 Saturation ABG Base Excess ABG Hemoglobin ABG Oxyhemoglobin ABG Sodium ABG Potassium ABG Chloride ABG Glucose Oxyhemoglobin Sodium Potassium Chloride Carbon Dioxide BUN Creatinine Glucose POC Glucose 178 H 155 H Lactic Acid Calcium Phosphorus Magnesium Total Bilirubin AST ALT Alkaline Phosphatase Total Protein Albumin Triglycerides Arterial Blood Glucose Arterial Blood Ionized Calcium Digoxin Crossmatch See Detail 01/06/21 01/06/21 01/07/21 17:35 22:21 03:07 WBC RBC Hgb Hct MCV MCHC RDW Plt Count Lymph % (Auto) Park % (Auto) Eos % (Auto) Lymph # (Auto) Park # (Auto) Eos # (Auto) Seg Neutrophils % Seg Neuts % (Manual) Lymphocytes % (Manual) Monocytes % (Manual) Seg Neutrophils # Seg Neutrophils # Man Lymphocytes # (Manual) Monocytes # (Manual) PT INR ABG pH POC ABG pCO2 POC ABG pO2 ABG pO2 ABG HCO3 ABG O2 Saturation ABG Base Excess ABG Hemoglobin 11.9 L ABG Oxyhemoglobin ABG Sodium 135.6 L ABG Potassium ABG Chloride ABG Glucose 181 H Oxyhemoglobin Sodium Potassium Chloride Carbon Dioxide BUN Creatinine Glucose POC Glucose 138 H 202 H Lactic Acid Calcium Phosphorus Magnesium Total Bilirubin AST ALT Alkaline Phosphatase Total Protein Albumin Triglycerides Arterial Blood Glucose 181 H Arterial Blood Ionized Calcium 4.3 L Digoxin Crossmatch 01/07/21 01/07/21 01/07/21 04:50 05:21 08:37 WBC 12.4 H RBC Hgb 11.1 L Hct 33.3 L D MCV MCHC RDW 17.0 H Plt Count Lymph % (Auto) 3.2 L Park % (Auto) 9.4 H Eos % (Auto) Lymph # (Auto) 0.4 L Park # (Auto) 1.2 H Eos # (Auto) Seg Neutrophils % 86.6 H Seg Neuts % (Manual) Lymphocytes % (Manual) Monocytes % (Manual) Seg Neutrophils # 10.7 H Seg Neutrophils # Man Lymphocytes # (Manual) Monocytes # (Manual) PT INR ABG pH POC ABG pCO2 POC ABG pO2 ABG pO2 ABG HCO3 ABG O2 Saturation ABG Base Excess ABG Hemoglobin ABG Oxyhemoglobin ABG Sodium ABG Potassium ABG Chloride ABG Glucose Oxyhemoglobin Sodium Potassium Chloride Carbon Dioxide BUN 60 H Creatinine 6.3 H Glucose 154 H POC Glucose 177 H Lactic Acid Calcium 8.3 L Phosphorus Magnesium Total Bilirubin AST ALT Alkaline Phosphatase Total Protein Albumin Triglycerides Arterial Blood Glucose Arterial Blood Ionized Calcium Digoxin Crossmatch 01/07/21 01/07/21 01/07/21 11:21 12:19 17:11 WBC RBC Hgb Hct MCV MCHC RDW Plt Count Lymph % (Auto) Park % (Auto) Eos % (Auto) Lymph # (Auto) Park # (Auto) Eos # (Auto) Seg Neutrophils % Seg Neuts % (Manual) Lymphocytes % (Manual) Monocytes % (Manual) Seg Neutrophils # Seg Neutrophils # Man Lymphocytes # (Manual) Monocytes # (Manual) PT INR ABG pH POC ABG pCO2 POC ABG pO2 ABG pO2 ABG HCO3 ABG O2 Saturation ABG Base Excess ABG Hemoglobin ABG Oxyhemoglobin ABG Sodium ABG Potassium ABG Chloride ABG Glucose Oxyhemoglobin Sodium Potassium Chloride Carbon Dioxide BUN Creatinine Glucose POC Glucose 144 H 137 H 119 H Lactic Acid Calcium Phosphorus Magnesium Total Bilirubin AST ALT Alkaline Phosphatase Total Protein Albumin Triglycerides Arterial Blood Glucose Arterial Blood Ionized Calcium Digoxin Crossmatch 01/07/21 01/07/21 01/08/21 17:14 23:39 04:34 WBC RBC Hgb Hct MCV MCHC RDW Plt Count Lymph % (Auto) Park % (Auto) Eos % (Auto) Lymph # (Auto) Park # (Auto) Eos # (Auto) Seg Neutrophils % Seg Neuts % (Manual) Lymphocytes % (Manual) Monocytes % (Manual) Seg Neutrophils # Seg Neutrophils # Man Lymphocytes # (Manual) Monocytes # (Manual) PT INR ABG pH 7.345 L POC ABG pCO2 POC ABG pO2 ABG pO2 67.4 L ABG HCO3 ABG O2 Saturation 94.3 L ABG Base Excess -3.9 L ABG Hemoglobin 8.9 L ABG Oxyhemoglobin ABG Sodium ABG Potassium ABG Chloride ABG Glucose Oxyhemoglobin 92.3 L Sodium Potassium Chloride Carbon Dioxide 20 L BUN 93 H Creatinine 8.8 H Glucose 120 H POC Glucose 129 H Lactic Acid Calcium Phosphorus Magnesium Total Bilirubin AST ALT Alkaline Phosphatase 133 H Total Protein 5.4 L Albumin 1.9 L Triglycerides Arterial Blood Glucose Arterial Blood Ionized Calcium Digoxin Crossmatch 01/08/21 01/08/21 01/08/21 05:26 11:38 17:19 WBC RBC Hgb Hct MCV MCHC RDW Plt Count Lymph % (Auto) Park % (Auto) Eos % (Auto) Lymph # (Auto) Park # (Auto) Eos # (Auto) Seg Neutrophils % Seg Neuts % (Manual) Lymphocytes % (Manual) Monocytes % (Manual) Seg Neutrophils # Seg Neutrophils # Man Lymphocytes # (Manual) Monocytes # (Manual) PT INR ABG pH POC ABG pCO2 POC ABG pO2 ABG pO2 ABG HCO3 ABG O2 Saturation ABG Base Excess ABG Hemoglobin ABG Oxyhemoglobin ABG Sodium ABG Potassium ABG Chloride ABG Glucose Oxyhemoglobin Sodium Potassium Chloride Carbon Dioxide BUN Creatinine Glucose POC Glucose 125 H 146 H 136 H Lactic Acid Calcium Phosphorus Magnesium Total Bilirubin AST ALT Alkaline Phosphatase Total Protein Albumin Triglycerides Arterial Blood Glucose Arterial Blood Ionized Calcium Digoxin Crossmatch 01/08/21 01/09/21 01/09/21 23:52 05:13 05:21 WBC RBC Hgb Hct MCV MCHC RDW Plt Count Lymph % (Auto) Park % (Auto) Eos % (Auto) Lymph # (Auto) Park # (Auto) Eos # (Auto) Seg Neutrophils % Seg Neuts % (Manual) Lymphocytes % (Manual) Monocytes % (Manual) Seg Neutrophils # Seg Neutrophils # Man Lymphocytes # (Manual) Monocytes # (Manual) PT INR ABG pH POC ABG pCO2 POC ABG pO2 ABG pO2 ABG HCO3 ABG O2 Saturation ABG Base Excess ABG Hemoglobin ABG Oxyhemoglobin ABG Sodium ABG Potassium ABG Chloride ABG Glucose Oxyhemoglobin Sodium Potassium Chloride Carbon Dioxide 16 L BUN 123 H Creatinine 10.8 H Glucose 145 H POC Glucose 143 H 144 H Lactic Acid Calcium Phosphorus 5.00 H D Magnesium 2.40 H Total Bilirubin AST ALT Alkaline Phosphatase Total Protein Albumin Triglycerides Arterial Blood Glucose Arterial Blood Ionized Calcium Digoxin Crossmatch 01/09/21 01/09/21 01/09/21 12:08 17:20 23:56 WBC RBC Hgb Hct MCV MCHC RDW Plt Count Lymph % (Auto) Park % (Auto) Eos % (Auto) Lymph # (Auto) Park # (Auto) Eos # (Auto) Seg Neutrophils % Seg Neuts % (Manual) Lymphocytes % (Manual) Monocytes % (Manual) Seg Neutrophils # Seg Neutrophils # Man Lymphocytes # (Manual) Monocytes # (Manual) PT INR ABG pH POC ABG pCO2 POC ABG pO2 ABG pO2 ABG HCO3 ABG O2 Saturation ABG Base Excess ABG Hemoglobin ABG Oxyhemoglobin ABG Sodium ABG Potassium ABG Chloride ABG Glucose Oxyhemoglobin Sodium Potassium Chloride Carbon Dioxide BUN Creatinine Glucose POC Glucose 153 H 160 H 158 H Lactic Acid Calcium Phosphorus Magnesium Total Bilirubin AST ALT Alkaline Phosphatase Total Protein Albumin Triglycerides Arterial Blood Glucose Arterial Blood Ionized Calcium Digoxin Crossmatch 01/10/21 01/10/21 01/10/21 04:52 05:44 07:41 WBC RBC Hgb Hct MCV MCHC RDW Plt Count Lymph % (Auto) Park % (Auto) Eos % (Auto) Lymph # (Auto) Park # (Auto) Eos # (Auto) Seg Neutrophils % Seg Neuts % (Manual) Lymphocytes % (Manual) Monocytes % (Manual) Seg Neutrophils # Seg Neutrophils # Man Lymphocytes # (Manual) Monocytes # (Manual) PT INR ABG pH POC ABG pCO2 POC ABG pO2 ABG pO2 ABG HCO3 ABG O2 Saturation ABG Base Excess ABG Hemoglobin ABG Oxyhemoglobin ABG Sodium ABG Potassium ABG Chloride ABG Glucose Oxyhemoglobin Sodium 135 L Potassium 3.5 L D Chloride 95.0 L Carbon Dioxide 21 L BUN 93 H Creatinine 8.3 H Glucose 127 H POC Glucose 135 H 157 H Lactic Acid Calcium Phosphorus Magnesium Total Bilirubin AST ALT Alkaline Phosphatase Total Protein Albumin Triglycerides Arterial Blood Glucose Arterial Blood Ionized Calcium Digoxin Crossmatch 01/10/21 01/10/21 01/10/21 09:26 12:03 17:44 WBC 18.2 H RBC 3.14 L Hgb 9.7 L Hct 28.2 L MCV MCHC RDW 16.5 H Plt Count Lymph % (Auto) Park % (Auto) Eos % (Auto) Lymph # (Auto) Park # (Auto) Eos # (Auto) Seg Neutrophils % Seg Neuts % (Manual) 95.0 H Lymphocytes % (Manual) 3.0 L Monocytes % (Manual) Seg Neutrophils # Seg Neutrophils # Man 17.3 H Lymphocytes # (Manual) 0.5 L Monocytes # (Manual) PT INR ABG pH POC ABG pCO2 POC ABG pO2 ABG pO2 ABG HCO3 ABG O2 Saturation ABG Base Excess ABG Hemoglobin ABG Oxyhemoglobin ABG Sodium ABG Potassium ABG Chloride ABG Glucose Oxyhemoglobin Sodium Potassium Chloride Carbon Dioxide BUN Creatinine Glucose POC Glucose 163 H 171 H Lactic Acid Calcium Phosphorus Magnesium Total Bilirubin AST ALT Alkaline Phosphatase Total Protein Albumin Triglycerides Arterial Blood Glucose Arterial Blood Ionized Calcium Digoxin Crossmatch 01/10/21 01/11/21 01/11/21 23:50 05:18 05:18 WBC RBC Hgb Hct MCV MCHC RDW Plt Count Lymph % (Auto) Park % (Auto) Eos % (Auto) Lymph # (Auto) Park # (Auto) Eos # (Auto) Seg Neutrophils % Seg Neuts % (Manual) Lymphocytes % (Manual) Monocytes % (Manual) Seg Neutrophils # Seg Neutrophils # Man Lymphocytes # (Manual) Monocytes # (Manual) PT INR ABG pH POC ABG pCO2 POC ABG pO2 ABG pO2 ABG HCO3 ABG O2 Saturation ABG Base Excess ABG Hemoglobin ABG Oxyhemoglobin ABG Sodium ABG Potassium ABG Chloride ABG Glucose Oxyhemoglobin Sodium 136 L Potassium Chloride 94.6 L Carbon Dioxide 19 L BUN 145 H Creatinine 10.6 H Glucose 152 H POC Glucose 151 H Lactic Acid Calcium Phosphorus 6.00 H D Magnesium Total Bilirubin AST ALT Alkaline Phosphatase Total Protein Albumin Triglycerides Arterial Blood Glucose Arterial Blood Ionized Calcium Digoxin 0.8 L Crossmatch 01/11/21 01/11/21 01/11/21 05:18 05:19 11:28 WBC 17.4 H RBC 3.34 L Hgb 10.2 L Hct 29.7 L MCV MCHC RDW 15.9 H Plt Count Lymph % (Auto) Park % (Auto) Eos % (Auto) Lymph # (Auto) Park # (Auto) Eos # (Auto) Seg Neutrophils % Seg Neuts % (Manual) Lymphocytes % (Manual) Monocytes % (Manual) Seg Neutrophils # Seg Neutrophils # Man Lymphocytes # (Manual) Monocytes # (Manual) PT INR ABG pH POC ABG pCO2 POC ABG pO2 ABG pO2 ABG HCO3 ABG O2 Saturation ABG Base Excess ABG Hemoglobin ABG Oxyhemoglobin ABG Sodium ABG Potassium ABG Chloride ABG Glucose Oxyhemoglobin Sodium Potassium Chloride Carbon Dioxide BUN Creatinine Glucose POC Glucose 149 H 178 H Lactic Acid Calcium Phosphorus Magnesium Total Bilirubin AST ALT Alkaline Phosphatase Total Protein Albumin Triglycerides Arterial Blood Glucose Arterial Blood Ionized Calcium Digoxin Crossmatch 01/11/21 01/11/21 01/12/21 17:31 23:14 05:18 WBC RBC Hgb Hct MCV MCHC RDW Plt Count Lymph % (Auto) Park % (Auto) Eos % (Auto) Lymph # (Auto) Park # (Auto) Eos # (Auto) Seg Neutrophils % Seg Neuts % (Manual) Lymphocytes % (Manual) Monocytes % (Manual) Seg Neutrophils # Seg Neutrophils # Man Lymphocytes # (Manual) Monocytes # (Manual) PT INR ABG pH POC ABG pCO2 POC ABG pO2 ABG pO2 ABG HCO3 ABG O2 Saturation ABG Base Excess ABG Hemoglobin ABG Oxyhemoglobin ABG Sodium ABG Potassium ABG Chloride ABG Glucose Oxyhemoglobin Sodium Potassium Chloride Carbon Dioxide BUN Creatinine Glucose POC Glucose 158 H 145 H 148 H Lactic Acid Calcium Phosphorus Magnesium Total Bilirubin AST ALT Alkaline Phosphatase Total Protein Albumin Triglycerides Arterial Blood Glucose Arterial Blood Ionized Calcium Digoxin Crossmatch 01/12/21 01/12/21 01/12/21 06:50 10:45 13:34 WBC RBC Hgb Hct MCV MCHC RDW Plt Count Lymph % (Auto) Park % (Auto) Eos % (Auto) Lymph # (Auto) Park # (Auto) Eos # (Auto) Seg Neutrophils % Seg Neuts % (Manual) Lymphocytes % (Manual) Monocytes % (Manual) Seg Neutrophils # Seg Neutrophils # Man Lymphocytes # (Manual) Monocytes # (Manual) PT INR ABG pH POC ABG pCO2 POC ABG pO2 ABG pO2 ABG HCO3 ABG O2 Saturation ABG Base Excess ABG Hemoglobin ABG Oxyhemoglobin ABG Sodium ABG Potassium ABG Chloride ABG Glucose Oxyhemoglobin Sodium Potassium 2.9 L* D Chloride 94.8 L Carbon Dioxide BUN 102 H Creatinine 8.3 H Glucose 139 H POC Glucose 151 H 134 H Lactic Acid Calcium 8.1 L Phosphorus 5.00 H Magnesium Total Bilirubin AST ALT Alkaline Phosphatase Total Protein Albumin Triglycerides Arterial Blood Glucose Arterial Blood Ionized Calcium Digoxin Crossmatch 01/12/21 01/12/21 01/13/21 16:59 23:06 03:45 WBC RBC Hgb Hct MCV MCHC RDW Plt Count Lymph % (Auto) Park % (Auto) Eos % (Auto) Lymph # (Auto) Park # (Auto) Eos # (Auto) Seg Neutrophils % Seg Neuts % (Manual) Lymphocytes % (Manual) Monocytes % (Manual) Seg Neutrophils # Seg Neutrophils # Man Lymphocytes # (Manual) Monocytes # (Manual) PT INR ABG pH POC ABG pCO2 POC ABG pO2 ABG pO2 ABG HCO3 ABG O2 Saturation ABG Base Excess ABG Hemoglobin ABG Oxyhemoglobin ABG Sodium ABG Potassium ABG Chloride ABG Glucose Oxyhemoglobin Sodium 136 L Potassium 3.4 L Chloride 92.6 L Carbon Dioxide BUN 134 H Creatinine 10.4 H Glucose 126 H POC Glucose 108 H 135 H Lactic Acid Calcium 8.3 L Phosphorus 5.60 H Magnesium 1.50 L Total Bilirubin AST ALT Alkaline Phosphatase Total Protein Albumin Triglycerides Arterial Blood Glucose Arterial Blood Ionized Calcium Digoxin Crossmatch 01/13/21 01/13/21 01/13/21 03:45 05:55 11:59 WBC 17.6 H RBC 3.33 L Hgb 10.2 L Hct 29.5 L MCV MCHC 35 H RDW 15.5 H Plt Count Lymph % (Auto) 4.4 L Park % (Auto) 10.3 H Eos % (Auto) Lymph # (Auto) 0.8 L Park # (Auto) 1.8 H Eos # (Auto) Seg Neutrophils % 84.2 H Seg Neuts % (Manual) Lymphocytes % (Manual) Monocytes % (Manual) Seg Neutrophils # 14.8 H Seg Neutrophils # Man Lymphocytes # (Manual) Monocytes # (Manual) PT INR ABG pH POC ABG pCO2 POC ABG pO2 ABG pO2 ABG HCO3 ABG O2 Saturation ABG Base Excess ABG Hemoglobin ABG Oxyhemoglobin ABG Sodium ABG Potassium ABG Chloride ABG Glucose Oxyhemoglobin Sodium Potassium Chloride Carbon Dioxide BUN Creatinine Glucose POC Glucose 134 H 141 H Lactic Acid Calcium Phosphorus Magnesium Total Bilirubin AST ALT Alkaline Phosphatase Total Protein Albumin Triglycerides Arterial Blood Glucose Arterial Blood Ionized Calcium Digoxin Crossmatch 01/13/21 01/14/21 01/14/21 23:09 05:39 05:57 WBC RBC Hgb Hct MCV MCHC RDW Plt Count Lymph % (Auto) Park % (Auto) Eos % (Auto) Lymph # (Auto) Park # (Auto) Eos # (Auto) Seg Neutrophils % Seg Neuts % (Manual) Lymphocytes % (Manual) Monocytes % (Manual) Seg Neutrophils # Seg Neutrophils # Man Lymphocytes # (Manual) Monocytes # (Manual) PT INR ABG pH POC ABG pCO2 POC ABG pO2 ABG pO2 ABG HCO3 ABG O2 Saturation ABG Base Excess ABG Hemoglobin ABG Oxyhemoglobin ABG Sodium ABG Potassium ABG Chloride ABG Glucose Oxyhemoglobin Sodium Potassium Chloride 97.6 L Carbon Dioxide BUN 81 H Creatinine 7.6 H Glucose 193 H POC Glucose 106 H 190 H Lactic Acid Calcium 8.2 L Phosphorus 4.60 H Magnesium Total Bilirubin AST ALT Alkaline Phosphatase Total Protein Albumin Triglycerides Arterial Blood Glucose Arterial Blood Ionized Calcium Digoxin Crossmatch 01/14/21 01/14/21 01/14/21 10:00 16:56 16:59 WBC 17.0 H RBC 3.10 L Hgb 9.6 L Hct 27.4 L MCV MCHC 35 H RDW 15.6 H Plt Count Lymph % (Auto) Park % (Auto) Eos % (Auto) Lymph # (Auto) Park # (Auto) Eos # (Auto) Seg Neutrophils % Seg Neuts % (Manual) Lymphocytes % (Manual) Monocytes % (Manual) Seg Neutrophils # Seg Neutrophils # Man Lymphocytes # (Manual) Monocytes # (Manual) PT INR ABG pH POC ABG pCO2 POC ABG pO2 ABG pO2 ABG HCO3 ABG O2 Saturation ABG Base Excess ABG Hemoglobin ABG Oxyhemoglobin ABG Sodium ABG Potassium ABG Chloride ABG Glucose Oxyhemoglobin Sodium Potassium Chloride Carbon Dioxide BUN Creatinine Glucose POC Glucose 37 L 34 L Lactic Acid Calcium Phosphorus Magnesium Total Bilirubin AST ALT Alkaline Phosphatase Total Protein Albumin Triglycerides Arterial Blood Glucose Arterial Blood Ionized Calcium Digoxin Crossmatch 01/14/21 01/14/21 01/14/21 17:02 18:34 23:17 WBC RBC Hgb Hct MCV MCHC RDW Plt Count Lymph % (Auto) Park % (Auto) Eos % (Auto) Lymph # (Auto) Park # (Auto) Eos # (Auto) Seg Neutrophils % Seg Neuts % (Manual) Lymphocytes % (Manual) Monocytes % (Manual) Seg Neutrophils # Seg Neutrophils # Man Lymphocytes # (Manual) Monocytes # (Manual) PT INR ABG pH POC ABG pCO2 POC ABG pO2 ABG pO2 ABG HCO3 ABG O2 Saturation ABG Base Excess ABG Hemoglobin ABG Oxyhemoglobin ABG Sodium ABG Potassium ABG Chloride ABG Glucose Oxyhemoglobin Sodium Potassium Chloride Carbon Dioxide BUN Creatinine Glucose POC Glucose 35 L 143 H 53 L Lactic Acid Calcium Phosphorus Magnesium Total Bilirubin AST ALT Alkaline Phosphatase Total Protein Albumin Triglycerides Arterial Blood Glucose Arterial Blood Ionized Calcium Digoxin Crossmatch 01/15/21 01/15/21 01/15/21 00:34 04:00 04:00 WBC 15.9 H RBC 3.02 L Hgb 9.3 L Hct 27.3 L MCV MCHC RDW 15.6 H Plt Count Lymph % (Auto) Park % (Auto) Eos % (Auto) Lymph # (Auto) Park # (Auto) Eos # (Auto) Seg Neutrophils % Seg Neuts % (Manual) Lymphocytes % (Manual) Monocytes % (Manual) Seg Neutrophils # Seg Neutrophils # Man Lymphocytes # (Manual) Monocytes # (Manual) PT INR ABG pH POC ABG pCO2 POC ABG pO2 ABG pO2 ABG HCO3 ABG O2 Saturation ABG Base Excess ABG Hemoglobin ABG Oxyhemoglobin ABG Sodium ABG Potassium ABG Chloride ABG Glucose Oxyhemoglobin Sodium 136 L Potassium Chloride 94.3 L Carbon Dioxide BUN 117 H Creatinine 9.9 H Glucose 217 H POC Glucose 181 H Lactic Acid Calcium 8.3 L Phosphorus Magnesium Total Bilirubin AST ALT Alkaline Phosphatase Total Protein Albumin Triglycerides Arterial Blood Glucose Arterial Blood Ionized Calcium Digoxin Crossmatch 01/15/21 01/15/21 01/15/21 05:29 11:51 23:13 WBC RBC Hgb Hct MCV MCHC RDW Plt Count Lymph % (Auto) Park % (Auto) Eos % (Auto) Lymph # (Auto) Park # (Auto) Eos # (Auto) Seg Neutrophils % Seg Neuts % (Manual) Lymphocytes % (Manual) Monocytes % (Manual) Seg Neutrophils # Seg Neutrophils # Man Lymphocytes # (Manual) Monocytes # (Manual) PT INR ABG pH POC ABG pCO2 POC ABG pO2 ABG pO2 ABG HCO3 ABG O2 Saturation ABG Base Excess ABG Hemoglobin ABG Oxyhemoglobin ABG Sodium ABG Potassium ABG Chloride ABG Glucose Oxyhemoglobin Sodium Potassium Chloride Carbon Dioxide BUN Creatinine Glucose POC Glucose 221 H 62 L 154 H Lactic Acid Calcium Phosphorus Magnesium Total Bilirubin AST ALT Alkaline Phosphatase Total Protein Albumin Triglycerides Arterial Blood Glucose Arterial Blood Ionized Calcium Digoxin Crossmatch 01/16/21 01/16/21 01/16/21 05:04 06:44 06:44 WBC 14.8 H RBC 2.76 L Hgb 8.2 L Hct 24.8 L MCV MCHC RDW 15.6 H Plt Count Lymph % (Auto) Park % (Auto) Eos % (Auto) Lymph # (Auto) Park # (Auto) Eos # (Auto) Seg Neutrophils % Seg Neuts % (Manual) Lymphocytes % (Manual) Monocytes % (Manual) Seg Neutrophils # Seg Neutrophils # Man Lymphocytes # (Manual) Monocytes # (Manual) PT INR ABG pH POC ABG pCO2 POC ABG pO2 ABG pO2 ABG HCO3 ABG O2 Saturation ABG Base Excess ABG Hemoglobin ABG Oxyhemoglobin ABG Sodium ABG Potassium ABG Chloride ABG Glucose Oxyhemoglobin Sodium 133 L Potassium Chloride 92.3 L Carbon Dioxide 20 L BUN 160 H Creatinine 12.1 H Glucose 177 H POC Glucose 168 H Lactic Acid Calcium 8.1 L Phosphorus 5.50 H Magnesium 2.50 H Total Bilirubin AST ALT Alkaline Phosphatase Total Protein Albumin Triglycerides Arterial Blood Glucose Arterial Blood Ionized Calcium Digoxin Crossmatch 01/16/21 01/17/21 01/17/21 23:20 05:14 05:14 WBC 12.7 H RBC 2.75 L Hgb 8.5 L Hct 24.6 L MCV MCHC 35 H RDW 15.4 H Plt Count Lymph % (Auto) Park % (Auto) Eos % (Auto) Lymph # (Auto) Park # (Auto) Eos # (Auto) Seg Neutrophils % Seg Neuts % (Manual) Lymphocytes % (Manual) Monocytes % (Manual) Seg Neutrophils # Seg Neutrophils # Man Lymphocytes # (Manual) Monocytes # (Manual) PT INR ABG pH POC ABG pCO2 POC ABG pO2 ABG pO2 ABG HCO3 ABG O2 Saturation ABG Base Excess ABG Hemoglobin ABG Oxyhemoglobin ABG Sodium ABG Potassium ABG Chloride ABG Glucose Oxyhemoglobin Sodium Potassium Chloride 97.9 L Carbon Dioxide BUN 84 H Creatinine 7.8 H Glucose 176 H POC Glucose 153 H Lactic Acid Calcium 8.0 L Phosphorus Magnesium Total Bilirubin AST ALT Alkaline Phosphatase Total Protein Albumin Triglycerides Arterial Blood Glucose Arterial Blood Ionized Calcium Digoxin Crossmatch 01/17/21 01/17/21 01/18/21 05:33 11:58 00:07 WBC RBC Hgb Hct MCV MCHC RDW Plt Count Lymph % (Auto) Park % (Auto) Eos % (Auto) Lymph # (Auto) Park # (Auto) Eos # (Auto) Seg Neutrophils % Seg Neuts % (Manual) Lymphocytes % (Manual) Monocytes % (Manual) Seg Neutrophils # Seg Neutrophils # Man Lymphocytes # (Manual) Monocytes # (Manual) PT INR ABG pH POC ABG pCO2 POC ABG pO2 ABG pO2 ABG HCO3 ABG O2 Saturation ABG Base Excess ABG Hemoglobin ABG Oxyhemoglobin ABG Sodium ABG Potassium ABG Chloride ABG Glucose Oxyhemoglobin Sodium Potassium Chloride Carbon Dioxide BUN Creatinine Glucose POC Glucose 162 H 64 L 146 H Lactic Acid Calcium Phosphorus Magnesium Total Bilirubin AST ALT Alkaline Phosphatase Total Protein Albumin Triglycerides Arterial Blood Glucose Arterial Blood Ionized Calcium Digoxin Crossmatch 01/18/21 01/18/21 01/18/21 04:19 04:19 06:15 WBC 15.6 H RBC 3.00 L Hgb 9.2 L Hct 26.8 L MCV MCHC 35 H RDW 15.6 H Plt Count Lymph % (Auto) Park % (Auto) Eos % (Auto) Lymph # (Auto) Park # (Auto) Eos # (Auto) Seg Neutrophils % Seg Neuts % (Manual) Lymphocytes % (Manual) Monocytes % (Manual) Seg Neutrophils # Seg Neutrophils # Man Lymphocytes # (Manual) Monocytes # (Manual) PT INR ABG pH POC ABG pCO2 POC ABG pO2 ABG pO2 ABG HCO3 ABG O2 Saturation ABG Base Excess ABG Hemoglobin ABG Oxyhemoglobin ABG Sodium ABG Potassium ABG Chloride ABG Glucose Oxyhemoglobin Sodium Potassium Chloride 96.2 L Carbon Dioxide BUN 117 H Creatinine 10.0 H Glucose 165 H POC Glucose 189 H Lactic Acid Calcium Phosphorus 4.70 H D Magnesium Total Bilirubin AST ALT Alkaline Phosphatase Total Protein Albumin Triglycerides Arterial Blood Glucose Arterial Blood Ionized Calcium Digoxin Crossmatch 01/18/21 01/18/21 01/18/21 11:53 13:44 15:08 WBC RBC Hgb Hct MCV MCHC RDW Plt Count Lymph % (Auto) Park % (Auto) Eos % (Auto) Lymph # (Auto) Park # (Auto) Eos # (Auto) Seg Neutrophils % Seg Neuts % (Manual) Lymphocytes % (Manual) Monocytes % (Manual) Seg Neutrophils # Seg Neutrophils # Man Lymphocytes # (Manual) Monocytes # (Manual) PT INR ABG pH POC ABG pCO2 POC ABG pO2 ABG pO2 ABG HCO3 ABG O2 Saturation ABG Base Excess ABG Hemoglobin ABG Oxyhemoglobin ABG Sodium ABG Potassium ABG Chloride ABG Glucose Oxyhemoglobin Sodium Potassium Chloride Carbon Dioxide BUN Creatinine Glucose POC Glucose 69 L 50 L 56 L Lactic Acid Calcium Phosphorus Magnesium Total Bilirubin AST ALT Alkaline Phosphatase Total Protein Albumin Triglycerides Arterial Blood Glucose Arterial Blood Ionized Calcium Digoxin Crossmatch 01/18/21 01/19/21 01/19/21 17:50 04:55 08:56 WBC 12.7 H RBC 2.89 L Hgb 8.7 L Hct 25.6 L MCV MCHC RDW 15.5 H Plt Count Lymph % (Auto) Park % (Auto) Eos % (Auto) Lymph # (Auto) Park # (Auto) Eos # (Auto) Seg Neutrophils % Seg Neuts % (Manual) Lymphocytes % (Manual) Monocytes % (Manual) Seg Neutrophils # Seg Neutrophils # Man Lymphocytes # (Manual) Monocytes # (Manual) PT INR ABG pH POC ABG pCO2 POC ABG pO2 ABG pO2 ABG HCO3 ABG O2 Saturation ABG Base Excess ABG Hemoglobin ABG Oxyhemoglobin ABG Sodium ABG Potassium ABG Chloride ABG Glucose Oxyhemoglobin Sodium Potassium Chloride Carbon Dioxide BUN Creatinine Glucose POC Glucose 137 H 120 H Lactic Acid Calcium Phosphorus Magnesium Total Bilirubin AST ALT Alkaline Phosphatase Total Protein Albumin Triglycerides Arterial Blood Glucose Arterial Blood Ionized Calcium Digoxin Crossmatch 01/19/21 01/19/21 01/19/21 08:56 11:33 17:32 WBC RBC Hgb Hct MCV MCHC RDW Plt Count Lymph % (Auto) Park % (Auto) Eos % (Auto) Lymph # (Auto) Park # (Auto) Eos # (Auto) Seg Neutrophils % Seg Neuts % (Manual) Lymphocytes % (Manual) Monocytes % (Manual) Seg Neutrophils # Seg Neutrophils # Man Lymphocytes # (Manual) Monocytes # (Manual) PT INR ABG pH POC ABG pCO2 POC ABG pO2 ABG pO2 ABG HCO3 ABG O2 Saturation ABG Base Excess ABG Hemoglobin ABG Oxyhemoglobin ABG Sodium ABG Potassium ABG Chloride ABG Glucose Oxyhemoglobin Sodium Potassium Chloride Carbon Dioxide BUN 66 H Creatinine 7.7 H Glucose 119 H POC Glucose 160 H 125 H Lactic Acid Calcium 8.3 L Phosphorus Magnesium Total Bilirubin AST ALT Alkaline Phosphatase Total Protein Albumin Triglycerides Arterial Blood Glucose Arterial Blood Ionized Calcium Digoxin Crossmatch 01/19/21 01/20/21 01/20/21 23:30 03:35 03:35 WBC 12.0 H RBC 2.62 L Hgb 8.3 L Hct 23.2 L MCV MCHC 36 H RDW Plt Count Lymph % (Auto) Park % (Auto) Eos % (Auto) Lymph # (Auto) Park # (Auto) Eos # (Auto) Seg Neutrophils % Seg Neuts % (Manual) Lymphocytes % (Manual) Monocytes % (Manual) Seg Neutrophils # Seg Neutrophils # Man Lymphocytes # (Manual) Monocytes # (Manual) PT INR ABG pH POC ABG pCO2 POC ABG pO2 ABG pO2 ABG HCO3 ABG O2 Saturation ABG Base Excess ABG Hemoglobin ABG Oxyhemoglobin ABG Sodium ABG Potassium ABG Chloride ABG Glucose Oxyhemoglobin Sodium Potassium Chloride Carbon Dioxide BUN 46 H Creatinine 5.9 H Glucose 128 H POC Glucose 127 H Lactic Acid Calcium Phosphorus Magnesium Total Bilirubin AST ALT Alkaline Phosphatase Total Protein Albumin Triglycerides Arterial Blood Glucose Arterial Blood Ionized Calcium Digoxin Crossmatch 01/20/21 01/20/21 01/20/21 06:19 11:55 18:00 WBC RBC Hgb Hct MCV MCHC RDW Plt Count Lymph % (Auto) Park % (Auto) Eos % (Auto) Lymph # (Auto) Park # (Auto) Eos # (Auto) Seg Neutrophils % Seg Neuts % (Manual) Lymphocytes % (Manual) Monocytes % (Manual) Seg Neutrophils # Seg Neutrophils # Man Lymphocytes # (Manual) Monocytes # (Manual) PT INR ABG pH POC ABG pCO2 POC ABG pO2 ABG pO2 ABG HCO3 ABG O2 Saturation ABG Base Excess ABG Hemoglobin ABG Oxyhemoglobin ABG Sodium ABG Potassium ABG Chloride ABG Glucose Oxyhemoglobin Sodium Potassium Chloride Carbon Dioxide BUN Creatinine Glucose POC Glucose 119 H 128 H 115 H Lactic Acid Calcium Phosphorus Magnesium Total Bilirubin AST ALT Alkaline Phosphatase Total Protein Albumin Triglycerides Arterial Blood Glucose Arterial Blood Ionized Calcium Digoxin Crossmatch 01/20/21 01/21/21 01/21/21 23:26 04:39 05:27 WBC RBC Hgb Hct MCV MCHC RDW Plt Count Lymph % (Auto) Park % (Auto) Eos % (Auto) Lymph # (Auto) Park # (Auto) Eos # (Auto) Seg Neutrophils % Seg Neuts % (Manual) Lymphocytes % (Manual) Monocytes % (Manual) Seg Neutrophils # Seg Neutrophils # Man Lymphocytes # (Manual) Monocytes # (Manual) PT INR ABG pH POC ABG pCO2 POC ABG pO2 ABG pO2 ABG HCO3 ABG O2 Saturation ABG Base Excess ABG Hemoglobin ABG Oxyhemoglobin ABG Sodium ABG Potassium ABG Chloride ABG Glucose Oxyhemoglobin Sodium Potassium Chloride Carbon Dioxide BUN 37 H Creatinine 5.3 H Glucose 109 H POC Glucose 108 H 107 H Lactic Acid Calcium Phosphorus 2.10 L Magnesium 1.50 L Total Bilirubin AST ALT Alkaline Phosphatase 143 H Total Protein 6.1 L Albumin 3.0 L Triglycerides Arterial Blood Glucose Arterial Blood Ionized Calcium Digoxin Crossmatch 01/21/21 01/21/21 01/22/21 11:35 17:53 00:20 WBC RBC Hgb Hct MCV MCHC RDW Plt Count Lymph % (Auto) Park % (Auto) Eos % (Auto) Lymph # (Auto) Park # (Auto) Eos # (Auto) Seg Neutrophils % Seg Neuts % (Manual) Lymphocytes % (Manual) Monocytes % (Manual) Seg Neutrophils # Seg Neutrophils # Man Lymphocytes # (Manual) Monocytes # (Manual) PT INR ABG pH POC ABG pCO2 POC ABG pO2 ABG pO2 ABG HCO3 ABG O2 Saturation ABG Base Excess ABG Hemoglobin ABG Oxyhemoglobin ABG Sodium ABG Potassium ABG Chloride ABG Glucose Oxyhemoglobin Sodium Potassium Chloride Carbon Dioxide BUN Creatinine Glucose POC Glucose 133 H 124 H 122 H Lactic Acid Calcium Phosphorus Magnesium Total Bilirubin AST ALT Alkaline Phosphatase Total Protein Albumin Triglycerides Arterial Blood Glucose Arterial Blood Ionized Calcium Digoxin Crossmatch 01/22/21 01/22/2101/22/21 04:00 06:09 11:36 WBC RBC Hgb Hct MCV MCHC RDW Plt Count Lymph % (Auto) Park % (Auto) Eos % (Auto) Lymph # (Auto) Park # (Auto) Eos # (Auto) Seg Neutrophils % Seg Neuts % (Manual) Lymphocytes % (Manual) Monocytes % (Manual) Seg Neutrophils # Seg Neutrophils # Man Lymphocytes # (Manual) Monocytes # (Manual) PT INR ABG pH POC ABG pCO2 POC ABG pO2 ABG pO2 ABG HCO3 ABG O2 Saturation ABG Base Excess ABG Hemoglobin ABG Oxyhemoglobin ABG Sodium ABG Potassium ABG Chloride ABG Glucose Oxyhemoglobin Sodium Potassium Chloride Carbon Dioxide BUN 65 H Creatinine 8.2 H D Glucose 111 H POC Glucose 122 H 132 H Lactic Acid Calcium Phosphorus Magnesium Total Bilirubin AST ALT Alkaline Phosphatase Total Protein Albumin Triglycerides Arterial Blood Glucose Arterial Blood Ionized Calcium Digoxin Crossmatch 01/22/21 01/22/21 01/23/21 17:17 23:18 05:29 WBC RBC Hgb Hct MCV MCHC RDW Plt Count Lymph % (Auto) Park % (Auto) Eos % (Auto) Lymph # (Auto) Park # (Auto) Eos # (Auto) Seg Neutrophils % Seg Neuts % (Manual) Lymphocytes % (Manual) Monocytes % (Manual) Seg Neutrophils # Seg Neutrophils # Man Lymphocytes # (Manual) Monocytes # (Manual) PT INR ABG pH POC ABG pCO2 POC ABG pO2 ABG pO2 ABG HCO3 ABG O2 Saturation ABG Base Excess ABG Hemoglobin ABG Oxyhemoglobin ABG Sodium ABG Potassium ABG Chloride ABG Glucose Oxyhemoglobin Sodium Potassium Chloride Carbon Dioxide BUN Creatinine Glucose POC Glucose 135 H 128 H 129 H Lactic Acid Calcium Phosphorus Magnesium Total Bilirubin AST ALT Alkaline Phosphatase Total Protein Albumin Triglycerides Arterial Blood Glucose Arterial Blood Ionized Calcium Digoxin Crossmatch 01/23/21 01/23/21 01/23/21 05:45 11:28 16:39 WBC RBC Hgb Hct MCV MCHC RDW Plt Count Lymph % (Auto) Park % (Auto) Eos % (Auto) Lymph # (Auto) Park # (Auto) Eos # (Auto) Seg Neutrophils % Seg Neuts % (Manual) Lymphocytes % (Manual) Monocytes % (Manual) Seg Neutrophils # Seg Neutrophils # Man Lymphocytes # (Manual) Monocytes # (Manual) PT INR ABG pH POC ABG pCO2 POC ABG pO2 ABG pO2 ABG HCO3 ABG O2 Saturation ABG Base Excess ABG Hemoglobin ABG Oxyhemoglobin ABG Sodium ABG Potassium ABG Chloride ABG Glucose Oxyhemoglobin Sodium Potassium Chloride Carbon Dioxide BUN 96 H Creatinine 10.8 H Glucose 124 H POC Glucose 160 H 116 H Lactic Acid Calcium Phosphorus Magnesium 2.50 H Total Bilirubin AST ALT Alkaline Phosphatase Total Protein Albumin Triglycerides Arterial Blood Glucose Arterial Blood Ionized Calcium Digoxin Crossmatch 01/24/21 01/24/21 01/24/21 00:02 04:45 05:01 WBC RBC Hgb Hct MCV MCHC RDW Plt Count Lymph % (Auto) Park % (Auto) Eos % (Auto) Lymph # (Auto) Park # (Auto) Eos # (Auto) Seg Neutrophils % Seg Neuts % (Manual) Lymphocytes % (Manual) Monocytes % (Manual) Seg Neutrophils # Seg Neutrophils # Man Lymphocytes # (Manual) Monocytes # (Manual) PT INR ABG pH POC ABG pCO2 POC ABG pO2 ABG pO2 ABG HCO3 ABG O2 Saturation ABG Base Excess ABG Hemoglobin ABG Oxyhemoglobin ABG Sodium ABG Potassium ABG Chloride ABG Glucose Oxyhemoglobin Sodium Potassium 3.5 L Chloride Carbon Dioxide BUN 56 H Creatinine 7.7 H Glucose 102 H POC Glucose 120 H 108 H Lactic Acid Calcium Phosphorus Magnesium Total Bilirubin AST ALT Alkaline Phosphatase Total Protein Albumin Triglycerides Arterial Blood Glucose Arterial Blood Ionized Calcium Digoxin Crossmatch 01/24/21 01/24/21 01/24/21 12:03 17:07 23:55 WBC RBC Hgb Hct MCV MCHC RDW Plt Count Lymph % (Auto) Park % (Auto) Eos % (Auto) Lymph # (Auto) Park # (Auto) Eos # (Auto) Seg Neutrophils % Seg Neuts % (Manual) Lymphocytes % (Manual) Monocytes % (Manual) Seg Neutrophils # Seg Neutrophils # Man Lymphocytes # (Manual) Monocytes # (Manual) PT INR ABG pH POC ABG pCO2 POC ABG pO2 ABG pO2 ABG HCO3 ABG O2 Saturation ABG Base Excess ABG Hemoglobin ABG Oxyhemoglobin ABG Sodium ABG Potassium ABG Chloride ABG Glucose Oxyhemoglobin Sodium Potassium Chloride Carbon Dioxide BUN Creatinine Glucose POC Glucose 136 H 122 H 112 H Lactic Acid Calcium Phosphorus Magnesium Total Bilirubin AST ALT Alkaline Phosphatase Total Protein Albumin Triglycerides Arterial Blood Glucose Arterial Blood Ionized Calcium Digoxin Crossmatch 0601/25/21 01/25/21 05:15 06:00 07:47 WBC RBC Hgb Hct MCV MCHC RDW Plt Count Lymph % (Auto) Park % (Auto) Eos % (Auto) Lymph # (Auto) Park # (Auto) Eos # (Auto) Seg Neutrophils % Seg Neuts % (Manual) Lymphocytes % (Manual) Monocytes % (Manual) Seg Neutrophils # Seg Neutrophils # Man Lymphocytes # (Manual) Monocytes # (Manual) PT INR ABG pH POC ABG pCO2 POC ABG pO2 ABG pO2 ABG HCO3 ABG O2 Saturation ABG Base Excess ABG Hemoglobin ABG Oxyhemoglobin ABG Sodium ABG Potassium ABG Chloride ABG Glucose Oxyhemoglobin Sodium 116 L* D Potassium Chloride 79.1 L Carbon Dioxide 17 L D BUN 72 H Creatinine 7.4 H Glucose 2242 H* POC Glucose 117 H 138 H Lactic Acid Calcium 6.7 L D Phosphorus Magnesium Total Bilirubin AST ALT Alkaline Phosphatase Total Protein Albumin Triglycerides Arterial Blood Glucose Arterial Blood Ionized Calcium Digoxin Crossmatch 01/25/21 01/25/21 01/25/21 08:35 11:49 18:42 WBC RBC Hgb Hct MCV MCHC RDW Plt Count Lymph % (Auto) Park % (Auto) Eos % (Auto) Lymph # (Auto) Park # (Auto) Eos # (Auto) Seg Neutrophils % Seg Neuts % (Manual) Lymphocytes % (Manual) Monocytes % (Manual) Seg Neutrophils # Seg Neutrophils # Man Lymphocytes # (Manual) Monocytes # (Manual) PT INR ABG pH POC ABG pCO2 POC ABG pO2 ABG pO2 ABG HCO3 ABG O2 Saturation ABG Base Excess ABG Hemoglobin ABG Oxyhemoglobin ABG Sodium ABG Potassium ABG Chloride ABG Glucose Oxyhemoglobin Sodium Potassium Chloride 97.0 L Carbon Dioxide BUN 92 H Creatinine 11.0 H Glucose 125 H POC Glucose 130 H 122 H Lactic Acid Calcium Phosphorus Magnesium Total Bilirubin AST ALT Alkaline Phosphatase Total Protein Albumin Triglycerides Arterial Blood Glucose Arterial Blood Ionized Calcium Digoxin Crossmatch 01/25/21 01/26/21 01/26/21 23:37 04:19 05:48 WBC RBC Hgb Hct MCV MCHC RDW Plt Count Lymph % (Auto) Park % (Auto) Eos % (Auto) Lymph # (Auto) Park # (Auto) Eos # (Auto) Seg Neutrophils % Seg Neuts % (Manual) Lymphocytes % (Manual) Monocytes % (Manual) Seg Neutrophils # Seg Neutrophils # Man Lymphocytes # (Manual) Monocytes # (Manual) PT INR ABG pH POC ABG pCO2 POC ABG pO2 ABG pO2 ABG HCO3 ABG O2 Saturation ABG Base Excess ABG Hemoglobin ABG Oxyhemoglobin ABG Sodium ABG Potassium ABG Chloride ABG Glucose Oxyhemoglobin Sodium Potassium Chloride Carbon Dioxide BUN 49 H Creatinine 7.1 H Glucose POC Glucose 144 H 125 H Lactic Acid Calcium Phosphorus Magnesium 1.50 L Total Bilirubin AST ALT Alkaline Phosphatase Total Protein Albumin Triglycerides Arterial Blood Glucose Arterial Blood Ionized Calcium Digoxin Crossmatch 01/26/21 01/26/21 01/27/21 11:16 18:35 00:01 WBC RBC Hgb Hct MCV MCHC RDW Plt Count Lymph % (Auto) Park % (Auto) Eos % (Auto) Lymph # (Auto) Park # (Auto) Eos # (Auto) Seg Neutrophils % Seg Neuts % (Manual) Lymphocytes % (Manual) Monocytes % (Manual) Seg Neutrophils # Seg Neutrophils # Man Lymphocytes # (Manual) Monocytes # (Manual) PT INR ABG pH POC ABG pCO2 POC ABG pO2 ABG pO2 ABG HCO3 ABG O2 Saturation ABG Base Excess ABG Hemoglobin ABG Oxyhemoglobin ABG Sodium ABG Potassium ABG Chloride ABG Glucose Oxyhemoglobin Sodium Potassium Chloride Carbon Dioxide BUN Creatinine Glucose POC Glucose 122 H 127 H 130 H Lactic Acid Calcium Phosphorus Magnesium Total Bilirubin AST ALT Alkaline Phosphatase Total Protein Albumin Triglycerides Arterial Blood Glucose Arterial Blood Ionized Calcium Digoxin Crossmatch 01/27/21 01/27/21 01/27/21 04:19 04:19 05:25 WBC 12.4 H RBC 2.79 L Hgb 8.6 L Hct 25.1 L MCV MCHC RDW 16.1 H Plt Count Lymph % (Auto) 7.5 L Park % (Auto) 9.3 H Eos % (Auto) 4.8 H Lymph # (Auto) 0.9 L [place] # (Auto) 1.1 H Eos # (Auto) 0.6 H Seg Neutrophils % 78.0 H Seg Neuts % (Manual) Lymphocytes % (Manual) Monocytes % (Manual) Seg Neutrophils # 9.7 H Seg Neutrophils # Man Lymphocytes # (Manual) Monocytes # (Manual) PT INR ABG pH POC ABG pCO2 POC ABG pO2 ABG pO2 ABG HCO3 ABG O2 Saturation ABG Base Excess ABG Hemoglobin ABG Oxyhemoglobin ABG Sodium ABG Potassium ABG Chloride ABG Glucose Oxyhemoglobin Sodium Potassium Chloride 97.9 L Carbon Dioxide BUN 76 H Creatinine 9.9 H Glucose 111 H POC Glucose 129 H Lactic Acid Calcium Phosphorus Magnesium Total Bilirubin AST ALT Alkaline Phosphatase Total Protein Albumin Triglycerides Arterial Blood Glucose Arterial Blood Ionized Calcium Digoxin Crossmatch 01/27/21 01/27/21 01/27/21 11:30 17:08 23:28 WBC RBC Hgb Hct MCV MCHC RDW Plt Count Lymph % (Auto) Park % (Auto) Eos % (Auto) Lymph # (Auto) Park # (Auto) Eos # (Auto) Seg Neutrophils % Seg Neuts % (Manual) Lymphocytes % (Manual) Monocytes % (Manual) Seg Neutrophils # Seg Neutrophils # Man Lymphocytes # (Manual) Monocytes # (Manual) PT INR ABG pH POC ABG pCO2 POC ABG pO2 ABG pO2 ABG HCO3 ABG O2 Saturation ABG Base Excess ABG Hemoglobin ABG Oxyhemoglobin ABG Sodium ABG Potassium ABG Chloride ABG Glucose Oxyhemoglobin Sodium Potassium Chloride Carbon Dioxide BUN Creatinine Glucose POC Glucose 128 H 158 H 114 H Lactic Acid Calcium Phosphorus Magnesium Total Bilirubin AST ALT Alkaline Phosphatase Total Protein Albumin Triglycerides Arterial Blood Glucose Arterial Blood Ionized Calcium Digoxin Crossmatch 01/28/21 01/28/21 01/28/21 05:17 11:27 18:01 WBC RBC Hgb Hct MCV MCHC RDW Plt Count Lymph % (Auto) Park % (Auto) Eos % (Auto) Lymph # (Auto) Park # (Auto) Eos # (Auto) Seg Neutrophils % Seg Neuts % (Manual) Lymphocytes % (Manual) Monocytes % (Manual) Seg Neutrophils # Seg Neutrophils # Man Lymphocytes # (Manual) Monocytes # (Manual) PT INR ABG pH POC ABG pCO2 POC ABG pO2 ABG pO2 ABG HCO3 ABG O2 Saturation ABG Base Excess ABG Hemoglobin ABG Oxyhemoglobin ABG Sodium ABG Potassium ABG Chloride ABG Glucose Oxyhemoglobin Sodium Potassium Chloride Carbon Dioxide BUN Creatinine Glucose POC Glucose 113 H 134 H 111 H Lactic Acid Calcium Phosphorus Magnesium Total Bilirubin AST ALT Alkaline Phosphatase Total Protein Albumin Triglycerides Arterial Blood Glucose Arterial Blood Ionized Calcium Digoxin Crossmatch 01/29/21 01/29/21 01/29/21 04:54 06:45 11:10 WBC RBC Hgb Hct MCV MCHC RDW Plt Count Lymph % (Auto) Park % (Auto) Eos % (Auto) Lymph # (Auto) Park # (Auto) Eos # (Auto) Seg Neutrophils % Seg Neuts % (Manual) Lymphocytes % (Manual) Monocytes % (Manual) Seg Neutrophils # Seg Neutrophils # Man Lymphocytes # (Manual) Monocytes # (Manual) PT INR ABG pH POC ABG pCO2 POC ABG pO2 ABG pO2 ABG HCO3 ABG O2 Saturation ABG Base Excess ABG Hemoglobin ABG Oxyhemoglobin ABG Sodium ABG Potassium ABG Chloride ABG Glucose Oxyhemoglobin Sodium Potassium 3.4 L Chloride Carbon Dioxide BUN 51 H Creatinine 6.9 H Glucose 120 H POC Glucose 111 H 106 H Lactic Acid Calcium Phosphorus 2.10 L Magnesium Total Bilirubin AST ALT Alkaline Phosphatase 182 H Total Protein 6.0 L Albumin 2.9 L Triglycerides Arterial Blood Glucose Arterial Blood Ionized Calcium Digoxin Crossmatch Allied health notes reviewed: nursing
[2021-01-29] MEDS ORDERED: SODIUM CHLORIDE 0.9% 500 ML 500 ML ONE (15:37)
[2021-01-29] MEDS ORDERED: TOTAL PARENTERAL NUTRITION 2,016 ML IV SCH (20:00)
[2021-01-30] MEDS: METOPROLOL TARTRATE 5 MG/5 ML INJ IV SCH ×9 (00:06→22:30)
[2021-01-30] MEDS: INSULIN LISPRO 100 UNIT/ML SUB-Q SCH ×4 (00:21→18:25)
[2021-01-30] MEDS: OCTREOTIDE 100 MCG in SODIUM CHLORIDE 0.9% 100 ML IV SCH ×3 (00:21→18:18)
[2021-01-30] MEDS: HYDROmorphone 1 MG/1 ML INJ IV PRN ×2 (01:54→18:33)
[2021-01-30] MEDS: hydrALAZINE 20 MG/1 ML INJ IV SCH ×5 (02:13→22:27)
[2021-01-30] MEDS: INSULIN GLARGINE 100 UNITS/ML SUB-Q SCH (02:45)
--- NOTE | 2021-01-30 09:38 | Progress Note ---
Assessment and Plan Assessment: * ESRD previously on peritoneal dialysis; now on back up HD (on peritoneal dialysis for 2 years) * Small bowel obstruction --s/p ex-lap with jejuno-ileal anastamosis --s/p ex lap with extensive lysis of adhesions and two small bowel resections with primary anastamosis for SBO with necrotic segment small bowel. --s/p ex lap, resection of perforated anastamosis, washout and abthera wound vac placement. --s/p ex lap with right hemicolectomy. * Acute respiratory failure * Septic shock - resolved * Bacteremia - resolved * Hyperkalemia * Anemia of ESRD * Atrial fibrilation, new onset * Post op ileus Plan: * Continue HD MWF via left IJ permcath (12/27); due today, has been tolerating sessions well per report * 3K bath with dialysis * UF as tolerated * Epogen 10k units prn w/ dialysis * Rate control per cardiology * Abx per primary team/ID * Nutrition per primary team * Maintain MAP >65 * Surgery, pulm notes appreciated * He will also require outpatient hemodialysis chair prior to discharge * His BUN is much improved. Most likely due to hypercatabolic state. Continue 4-hour of dialysis Subjective Principal diagnosis: Ac hypoxemic resp failure; Severe Sepsis; Peritonitis; Acute SBO; ESRD; CHF Interval history: No acute events noted, patient wants to go home and eat. Objective - Exam Narrative Exam: - General Limitations: Physical Limitation General appearance: no acute distress - Head Head exam: Present: atraumatic, normocephalic - Eye Eye exam: Present: normal appearance, EOMI - Neck Neck exam: Present: normal inspection - Respiratory Respiratory exam: normal breathing patterns - Cardiovascular Cardiovascular Exam: Present: normal rhythm, tachycardia - GI/Abdominal GI/Abdominal exam: Present: soft, distended (slightly), tenderness (periumbilical ) - Extremities Exam Extremities exam: Present: normal inspection; LIJ CVC noted - Neurological Exam Neurological exam: sedated - Psychiatric Psychiatric exam: opens eyes - Skin Skin exam: Present: warm, dry, intact, normal color - Vital Signs Vital signs: Vital Signs - 12hr 01/29/21 01/30/21 01/30/21 22:21 00:00 00:02 Temperature 99.0 F Pulse Rate 74 72 80 Respiratory 17 18 Rate Respiratory Rate [Anterior Abdomen] Blood Pressure 149/75 162/84 Blood Pressure [Right] O2 Sat by Pulse 98 Oximetry 01/30/21 01/30/21 01/30/21 00:18 00:22 01:54 Temperature Pulse Rate 68 74 Respiratory 16 Rate Respiratory Rate [Anterior Abdomen] Blood Pressure 172/72 Blood Pressure 165/74 [Right] O2 Sat by Pulse 94 Oximetry 01/30/21 01/30/21 01/30/21 02:13 02:24 02:42 Temperature Pulse Rate 72 Respiratory 17 Rate Respiratory 16 Rate [Anterior Abdomen] Blood Pressure 157/74 Blood Pressure [Right] O2 Sat by Pulse Oximetry 01/30/21 01/30/21 01/30/21 04:00 05:51 05:54 Temperature 99 F Pulse Rate 74 72 70 Respiratory 17 17 Rate Respiratory Rate [Anterior Abdomen] Blood Pressure 170/83 Blood Pressure 172/83 [Right] O2 Sat by Pulse 100 Oximetry 01/30/21 01/30/21 06:02 06:11 Temperature Pulse Rate 67 65 Respiratory Rate Respiratory Rate [Anterior Abdomen] Blood Pressure 160/78 Blood Pressure 163/72 [Right] O2 Sat by Pulse 100 Oximetry - Lab 01/27/21 04:19 01/30/21 04:15 Most recent lab results ABG pH 7.345 pH Units (7.350-7.450) L 01/07/21 17:14 ABG pCO2 40.3 mm Hg 01/07/21 17:14 ABG pO2 67.4 mm Hg (80.0-90.0) L 01/07/21 17:14 ABG HCO3 21.5 mmol/L (20.0-26.0) 01/07/21 17:14 ABG O2 Saturation 94.3 % (95.0-99.0) L 01/07/21 17:14 Calcium 9.0 mg/dL (8.4-10.2) 01/30/21 04:15 Phosphorus 4.70 mg/dL (2.5-4.5) H D 01/30/21 04:15 Magnesium 2.30 mg/dL (1.7-2.3) 01/30/21 04:15 Medications & Allergies - Medications Allergies/Adverse Reactions: Allergies No Known Allergies Allergy (Verified 06/09/20 15:27) Home Medications: Home Medications Medication Instructions Recorded Confirmed Last Taken Type Albuterol Mdi (or & Nicu Only) 2 puff IH QID PRN #1 inhalation 04/01/17 11/01/20 10/31/20 09:00 Rx [ProAir HFA Inhaler] Calcium Acetate 667 mg PO DAILY 04/20/20 11/01/20 10/31/20 09:00 History Centrum Men's Tablet 1 tab PO DAILY 04/20/20 11/01/20 10/31/20 09:00 History Cinacalcet 30 mg PO DAILY 04/20/20 11/01/20 10/31/20 09:00 History Dialyvite with Zinc Tablet 1 tab PO DAILY 04/20/20 11/01/20 10/31/20 09:00 History Magnesium 250 mg PO BID 04/20/20 11/01/20 10/31/20 17:00 History Triamcinolone 0.1% 1 1000units TRANSDERMA DAILY 04/20/20 11/01/20 10/31/20 09:00 History Vit B12/Folic Acid/B6/Aa No.15 1,000 mg PO DAILY 04/20/20 11/01/20 10/31/20 09:00 History amLODIPine 10 mg PO DAILY 06/09/20 11/01/20 10/31/20 09:00 History AtorvaSTATin 40 mg PO HS 11/01/20 11/01/20 10/31/20 21:00 History Benadryl 25 mg PO HS 11/01/20 11/01/20 10/31/20 21:00 History Diclofenac 1 TRANSDERMA QID 11/01/20 10/31/20 19:00 History Fluticasone Propionate 1 spray INTRANASAL DAILY 11/01/20 11/01/20 10/31/20 09:00 History Vitamin D3 2,000 units 11/01/20 10/31/20 09:00 History carvediloL 12.5 mg PO DAILY 11/01/20 11/01/20 10/31/20 09:00 History hydrALAZINE 100 mg PO TID 11/01/20 11/01/20 10/31/20 19:00 History Active Medications: Generic Name Dose Route Start Last Admin Trade Name Freq PRN Reason Stop Dose Admin Acetaminophen 650 mg 12/31/20 15:30 01/21/21 05:28 Acetaminophen 650 Mg Rect Supp MA 650 mg Q6H PRN Administration Non Cardiac Pain or Temp>100.5 Clonidine HCl 0.2 mg 01/11/21 10:00 01/25/21 09:42 Clonidine Tts 0.2 Mg/24 Hr Patch TD 0.2 mg We THOMAS Administration Dextrose 50 ml 01/14/21 17:59 01/18/21 15:10 Dextrose 50% In Water (25gm) 50 Ml Syringe IV 20 ml Q30MIN PRN Administration Hypoglycemia Protocol Digoxin 0.125 mg 01/09/21 12:00 01/29/21 11:52 Digoxin 0.5 Mg/2 Ml Inj IV 0.125 mg Q48H THOMAS Administration Diphenhydramine HCl 50 mg 01/20/21 10:10 01/29/21 02:07 Diphenhydramine 50 Mg/Ml Vial IV 50 mg Q6H PRN Administration Itching Famotidine 10 mg 12/24/20 13:00 01/29/21 22:20 Famotidine 20 Mg/2 Ml Inj IV 10 mg BID THOMAS Administration Haloperidol Lactate 5 mg 12/29/20 14:16 01/22/21 23:56 Haloperidol Lactate 5 Mg/1 Ml Inj IV 5 mg Q12H PRN Administration Agitation Heparin Sodium (Porcine) 5,000 unit 12/24/20 10:00 01/29/21 22:20 Heparin 5,000 Unit/1 Ml Vial SUB-Q 5,000 unit Q12HR THOMAS Administration Hydralazine HCl 10 mg 01/10/21 14:00 01/30/21 06:02 Hydralazine 20 Mg/1 Ml Inj IV 10 mg Q4HR THOMAS Administration Hydromorphone HCl 0.25 mg 01/09/21 10:53 01/30/21 01:54 Hydromorphone 1 Mg/1 Ml Inj IV 0.25 mg Q6H PRN Administration Pain , Severe (7-10) Hydrophilic Ointment 1 applic 12/31/20 06:39 01/11/21 21:28 Lip Therapy Vaseline TP 1 applic Q2HR PRN Administration Dry Lips Octreotide Acetate 100 mcg/ 101 mls @ 200 mls/hr 01/21/21 15:00 01/30/21 00:21 Sodium Chloride IV 200 mls/hr Q8H THOMAS Administration Sodium Chloride 100 mls @ 999 mls/hr 01/27/21 18:37 Nacl 0.9% IV [place] PRN Hypotension Amino Acids/Electrolytes/Dextrose 2,016 mls @ 84 mls/hr 01/29/21 20:00 01/29/21 22:26 Tpn Adult IV 01/30/21 19:59 84 mls/hr DAILY@2000 [facility] Administration Protocol Insulin Glargine 5 units 01/18/21 22:00 01/30/21 02:45 Insulin Glargine 100 Units/Ml SUB-Q Not Given QHS [facility] Insulin Human Lispro 0 unit 01/03/21 12:00 01/30/21 08:01 Insulin Lispro 100 Unit/Ml SUB-Q Not Given Q6HR [facility] Protocol Metoprolol Tartrate 5 mg 12/30/20 12:00 01/30/21 05:54 Metoprolol Tartrate 5 Mg/5 Ml Inj IV 5 mg Q4HR [facility] Administration Multi-Ingred Cream/Lotion/Oil/Oint 1 applic 12/31/20 06:39 Mineral Oil/Petrolatum, White Ophth Oint 3.5 Gm OU Q4HR PRN Dry Eye(s) Ondansetron HCl 4 mg 01/25/21 11:56 01/28/21 06:26 Ondansetron 4 Mg/2 Ml Inj IV 4 mg Q4H PRN Administration Nausea And Vomiting Scopolamine 1 each 01/15/21 11:00 01/27/21 10:10 Scopolamine Transdermal Patch 72 Hr TD 1 each Q3D THOMAS Administration Sodium Chloride 10 ml 12/22/20 22:00 01/30/21 08:02 Sodium Chloride 0.9% 10 Ml Flush Syringe IV 10 ml BID THOMAS Administration Sodium Chloride 10 ml 12/22/20 19:42 01/29/21 02:08 Sodium Chloride 0.9% 10 Ml Flush Syringe IV 10 ml PRN PRN Administration LINE FLUSH
[2021-01-30] MEDS: ONDANSETRON 4 MG/2 ML INJ IV PRN (11:00)
[2021-01-30] MEDS: EPOETIN ALFA-EPBX 10,000 UNIT/1 ML VIAL SUB-Q PRN (14:00)
--- NOTE | 2021-01-30 14:02 | Progress Note ---
Assessment and Plan Assessment and plan: This is a 60 YO Male with ESRD on PD, GERD, Crohn's Disease, Nicotine Dependence, HTN, Systolic CHF(EF 35%) who presented to the emergency department on 12/22 with complaints of abdominal pain which began shortly after eating fast food rated 10/10 which is periumbilical, constant, associated with fever, nausea and multiple sites of vomiting and self-reported inability to undergo PD. In the emergency room patient underwent a CT scan of the abdomen/pelvis which revealed evidence of partial small bowel obstruction, symptoms were consistent with bacterial peritonitis. Patient was admitted to the hospital service with sepsis, peritonitis, and small bowel obstruction with consults to general surgery, nephrology, infectious disease and [facility]. 12/23. Patient had temperature 101.2 F, tachycardia and elevated lactic acid on admission. Meet sepsis criteria. Started on IV antibiotics. ID has been c onsulted. Surgery consulted this a.m.-advised laparoscopy. He remains on NG tube connected to suction. 12/24. Patient was noted to have peritonitis yesterday and patient undergoing exploratory laparotomy. Patient remained intubated after procedure and is in ICU. Now on broad-spectrum antibiotics. ID on board. 12/25. Remains mechanically ventilated and sedated. Temp 103 Fahrenheit. Antibiotics broadened-ID added fluconazole and Flagyl. Blood cultures ordered. Plan to repeat CT abdomen tomorrow if not better. Surgery following. 12/26: Patient remains on mechanical ventilation on CMV tidal line 550, rate of 14, PEEP of 8 and 30% FiO2 and sedated on fentanyl 4 micrograms. Today we will remove his Jeffery and CCM dropped his rate controlled him on CPAP. We will trend CBC given recent drop in H/H. 12/27: Patient remains intubated on CMV tidal volume 550, rate 12, PEEP 8 on 30% FiO2 at the time my examination. Patient's TPN will be changed to PPN. Patient's fentanyl drip will be changed to IV push fentanyl and have a permacath placed today and midline. Patient was placed on a spontaneous breathing trial was switched back to CMV prior to procedure. 12/28: Patient on fentanyl but awake and follows commands. At the time of my examination he was on a CPAP trial and is scheduled to receive HD today. s/o permacath and PICC placement with vascular yesterday. His blood culture grew Prevotella and addition to Streptococcus bovis. This evening Dr. Spicer attempted to extubate the patient and his heart rate went to the 180s. Stat EKG obtained and cardiology consulted. 12/29: Patient was started on amiodarone IV for A. fib RVR yesterday and today he is more rate controlled into the 70s and 80s. Patient was extubated yesterday and is currently on Ventimask. Patient will be transferred to [facility]. Patient continues to be n.p.o. with TPN and NG tube to LIS. He is hypokalemic today which was repleted. 12/30; patient was on IV amiodarone for treatment with RVR, rate is controlled. Patient was off oxygen. patient is n.p.o. and on TPN. Surgery is following the patient. 12/31: Patient was intubated overnight for respiratory distress and this morning on examination he was on assist control tidal volume 450, rate 20, PEEP 6, 100% FiO2 and RT was getting a ABG to adjust vent settings. Patient had a acute bump in WBC and per ID recommendations we will obtain a CT abdomen/pelvis if leukocytosis persist. Patient is on TPN and sedated with Levophed. Patient is also on vasopressor support with Levophed. Per surgery his ileus is resolving however will maintain OGT to LIWS. 01/01: Patient was started on a vasopressin yesterday late evening. This morning patient is on 20 mcg of Levophed and 0.03 vasopressin and sedated on 20 mcg of propofol. Patient WBC increased today and he is hypokalemic. We will treat hyperkalemia. Patient had a CT chest and abdomen/pelvis pending. The time examination total of 450, rate 20, PEEP of 6 and 35 percent FiO2. Per RN, Dr Pollock has stated that the patient will be returning to the OR today for likely anastomosis seen on CT abdomen/pelvis. 01/02: Patient noted, WBC improving, but noted to have anemia, will transfuse additional unit of Blood and repeat H/H. continue supportive care. 01/03: Continue to wean pressors, ABX PER ID, patient to return to OR today for washout and possible closure, CONTINUE TPN 01/04: Continues to show some improvement. Today is POD#12 s/p ex lap with extensive lysis of adhesions and two small bowel resections with primary anastamosis for SBO with necrotic segment small bowel. POD#3 s/p ex lap, resection of perforated anastamosis, washout and abthera wound vac placement. POD#1 s/p ex lap with right hemicolectomy. Surgery planning to take back to the OR on Saturday with the hope to anastamos ileum to transverse colon and close abdomen. keep NGT to suction. Pt in deep sedation due to open abdomen. Per ID - Continue IV Zosyn, renally dosed for Strep bacteremia treatment till 01/06/2021 -On TPN 01/05: Patient continues on HD, anticipate return to OR tomorrow for closure and anastemosis. Continues with deep sedation due to open abdomen 01/06: Continue supportive care, monitor pressures and electrolytes. He is post op Exploratory laparotomy, 2. Jejunal colonic anastomosis,3. Segmental small bowel resection and anastemosis closure today. Continue wound vac 01/07: Continue supportive care, Today is POD#15 s/p ex lap with extensive lysis of adhesions and two small bowel resections with primary anastamosis for SBO with necrotic segment small bowel. POD#6 s/p ex lap, resection of perforated anastamosis, washout and abthera wound vac placement. POD#4 s/p ex lap with right hemicolectomy. POD #1 exploratory laparotomy, 2. Jejunal colonic anastomosis,3. Segmental small bowel resection. Continue to monitor and correct electrolytes. Patient remains on fentanyl and TPN with lipids. Still hypoactive bowel sounds. 16: Patient now extubated, asked when he can go home, Still lethargic. Continue wound management, wound vac, Will need Rehab eval prior to discharge. 01/09: Patient remains on TPN, was started on labetalol drip per cardiology, africa dueñas had uncontrolled hypertension today however he cannot be given p.o. medications ileus resolves per surgery. Patient received hemodialysis today. NG tube remains to low intermittent suction. 01/10: Patient has some leukocytosis, slight hypokalemia and hyponatremia, metabolic acidosis. NG tube to LIWS, continue TPN. Patient will be downgraded to IMCU today. [facility] is working on placement. Will change frequency of hydralazine and discontinue labetalol drip. We will obtain a.m. BMP/mag/Phos and CBC. Infectious disease will like to start Zosyn if leukocytosis continues to worsen. 01/11: Patient leukocytosis has slightly improved potassium with in normal limits and other electrolytes are elevated but patient is scheduled for HD today. Remains on RA and A,A,Ox4. BP better controlled but remains elevated and we will increase clonidine dose. 01/12/2021; patient's blood pressure is better after dialysis and as needed IV medications and clonidine patch. Patient is followed by general surgery. Patient was alert and oriented and asked when he is going home. 01/13: Surgery is concerned about a leak at his anastamosis given increased output and will treat as controlled fistula and start an octreotide drip. And per surgery if he requires operative intervention will likely need to be left in discontinuity and eventual ileostomy as he has already failed two anastamoses. Patient still has tongue swelling and slurred speech. He is on Benadryl. 01/14: Patient's tongue swelling is improved, patient is alert and oriented, CAM ICU negative. Continue NG tube to low wall intermittent suction. Leukocytosis is improving. Hypomagnesemia resolved. Epogen with HD 01/15: Patient tongue swelling is much improved, bladder scan completed by bedside RN and he needed to be straight cathed. NGT output decreased. Leukocytosis improving. Patient has been having episodes of hypoglycemia during the day and he is on cyclic TPN, Lantus rescheduled to nightly and dosage decreased. 01/16: Continue management per ID and surgery. Will defer repeat CT of the abdomen to the team surgery has been approved by nephrology. Continue current diet and advance all to ice if okay with surgery discussed with nursing staff. 01/17: Discussed surgical recommendation of strict n.p.o. except for small amount of ice as patient has already failed to anastomosis. And risk for additional surgery with tissues were extremely friable from previous scar. He continues on octreotide drip to slow down GI output HARIS drain remains in place with NG suction for decompression. Patient verbalized understanding although stressed about being discharged. We will continue IMCU care unless otherwise advised by david andersen. Prognosis remains guarded continue to monitor electrolytes considering GI output. 01/18: Continue supportive care, BP mildly elevated, continue to monitor, continue current therapy, if no return to PO soon may consider Increasing clonidine to 0.3, PO when ok with surgery. 01/19:Continue supportive care, Per ID continue IV Zosyn, plan to stop at 3 weeks from last surgery end date: 01/24/2021. Other management per surgery. Continue TPN. 01/20: Discussed with Surgery, will continue current management. Advised patient of the findings and plan. 01/21: Continue supportive care. Continue management per surgery advance diet when okay with surgery. Plan of care discussed with the patient in detail. 01/22: NG tube to be replaced explained to the patient why this is important. I agree with PT OT discussed with nursing staff very important to let the PT team know that they should manage HARIS drain while patient is ambulating so that he does not come out. Continue current management. Change in ocreotide to q8h and d/c drip NOTED 01/23: Continue supportive care, HD today, counselling provided to the patient on compliance with medical management 01/24: Replace NGT, Continue management per Surgery. POD 32. Mild hypokalemia noted, will replace. 01/25: Brief summary patient is a 60-year-old male admitted with abdominal pain and noted to have necrotic bowel concerning for PD associated peritonitis. Catheter was placed to convert to HD. Patient also underwent multiple surgical interventions. Initial cultures showed Streptococcus bovis bacteremia and Prevotella bacteremia a COLIN was without vegetations repeat blood cultures have been negative. Part of the surgery is included ex lap, resection of perforated anastomosis, washout and a better wound VAC placement on 01/01. While progress has remained slow if has indeed shown some improvement. Patient is agitated about being in the hospital but understands the care management been provided his vital to his health and to prevent further surgeries. The NG tube has been pulled out 2 days ago he vehemently refused the tube being placed back but after a day of nausea with associated vomiting he was accepting of the chest tube to put back. He continues on TPN. We will continue to monitor electrolytes and correct as needed. This a.m. and erroneous blood was obtained likely from the same line as TPN repeat was done which showed normalizing factors. Patient completed antibiotics on 01/25/2020 . 01/26 Patient with severe sepsis with septic shock, small bowel obstruction, necrotic bowel s/p multiple surgeries. He complains of abdominal pain. No fever currently. He asked me when is he going home and i explained that he is not yet stable for discharge 01/27 Patient with severe sepsis with septic shock, small bowel obstruction, necrotic bowel s/p multiple surgeries. He complains of abdominal pain. No fever currently. Paroxysmal atrial fib managed by cardiology 01/28 Patient with severe sepsis with septic shock, small bowel obstruction, necrotic bowel s/p multiple surgeries. No fever currently. No abd pain currently. I discussed with Surgeon, Dr. Pollock. Continue current management. He also has paroxysmal afib, managed by Cardiology. 01/29 Patient with severe sepsis with septic shock, small bowel obstruction, necrotic bowel s/p multiple surgeries. No fever currently. No abd pain currently. I discussed with Surgeon, Dr. Pollock, yesterday. Continue current management. He also has paroxysmal afib, managed by Cardiology. He is on Metoprolol, Digoxin, Clonidine 01/30 Patient with severe sepsis with septic shock, small bowel obstruction, necrotic bowel s/p multiple surgeries. Patient is a 60-year-old male admitted with abdominal pain and noted to have necrotic bowel concerning for PD associated peritonitis. Catheter was placed to convert to HD. Patient also underwent multiple surgical interventions. Initial cultures showed Streptococcus bovis bacteremia and Prevotella bacteremia a COLIN was without vegetations repeat blood cultures have been negative. Part of the surgery is included ex lap, resection of perforated anastomosis, washout and a better wound VAC placement on 01/01. While progress has remained slow if has indeed shown some improvement. Patient is agitated about being in the hospital but understands the care management been provided his vital to his health and to prevent further surgeries. He continues on TPN. No fever currently. Less abdominal pain. I discussed with Surgeon, Dr. Pollock, few days ago. Continue current management. He also has paroxysmal afib, managed by Cardiology. He is on Metoprolol, Digoxin, Clonidine. ESRD on dialysis managed by Nephrology. Severe Sepsis with shock Streptococcus bovis bacteremia/Prevotella bacteremia Gwendolyn albicans tracheal aspirate Small bowel obstruction/necrotic bowel s/p ex lap with extensive lysis of adhesions, 2 small bowel resections with primary anastomosis, right hemicolectomy, jejunal colonic anastomosis, segmental small bowel resection Postoperative ileus Atrial fibrillation with RVR Leukocytosis Hypochloremia Gwendolyn albicans in tracheal aspirate from 12/24 ESRD on PD, PermCath to be placed Transaminitis Systolic CHF(EF 35%) Crohn's disease Hypertension -CCM, surgery, infectious disease, nephrology, vascular surgery, cardiology consulted, appreciate recommendations -5/1 S/p ex lap with extensive expectations, 2 small bowel resections with primary anastomosis with surgery on 12/23 -s/p PICC and Permacath placement with vascular surgery on 12/27 -Extubated on 12/28, reintubated 12/31 for respiratory distress and extubated 01/08 -12/29 echocardiogram shows moderate concentric LVH, small pericardial effusion, transmitral Doppler flow pattern is grade 1 abnormal relaxation pattern, left- ventricular systolic function normal, LVEF 50 to 55%, no wall motion abnormalities. -01/01 CT abdomen/pelvis shows small pericardial effusion, mild coronary artery atherosclerotic calcification, small bilateral pleural effusions with associated volume loss, no convincing evidence of bowel obstruction or inflammation, postoperative changes from interval/recent midline laparotomy with a moderate amount of free fluid throughout the abdomen, small amount of dependent free air presumably postoperative -01/02 s/p ex lap, resection of perforated anastamosis, washout and abthera wound vac placement. -01/04 s/p ex lap with right hemicolectomy. -01/06 s/p exploratory laparotomy, Jejunal colonic anastomosis, Segmental small bowel resection. -s/p Vasopressor support with Levophed and vasopressin -Transitioned to HD from PD -HD per nephro, Epogen with HD -Strict NPO -TPN -Octreotide drip -NGT to LIWS -s/p IV antibiotics -Tobacco abuse cessation counseling -Trend CBC, BMP DVT/GI prophylaxis: PPI, heparin subcu, SCDs to bilateral lower extremities while in bed Disposition: IMCU History Interval history: Patient has had multiple surgeries Less abdominal pain No more fever Tmax 99.8 patient asking when he can go home Hospitalist Physical - Physical exam Narrative exam: Gen:Not in acute distress, lying in bed HEENT:Normocephalic , NG tube Neck:supple, no JVD Lungs:Clear to auscultation bilat, no rales Heart:S1 and S2 reg, no murmurs, no rubs or gallop Abd: covered with dressing, HARIS drain, decreased bowel sounds Ext: No edema, no clubbing, no cyanosis Neuro:Awake,alert,oriented X3, moves all extremities psych: Calm, co-operative - Constitutional Vitals: Temp Pulse Resp BP Pulse Ox 99 F 73 17 172/87 100 01/30/21 05:51 01/30/21 12:00 01/30/21 05:51 01/30/21 12:00 01/30/21 06:11 General appearance: Present: no acute distress HEART Score - HEART Score Troponin: Troponin T 0.021 ng/mL (0.00-0.029) 12/22/20 14:38 Results - Labs CBC & Chem 7: 01/27/21 04:19 01/30/21 04:15 Labs: Laboratory Last Values WBC 12.4 K/mm3 (4.5-11.0) H 01/27/21 04:19 RBC 2.79 M/mm3 (3.65-5.03) L 01/27/21 04:19 Hgb 8.6 gm/dl (11.8-15.2) L 01/27/21 04:19 Hct 25.1 % (35.5-45.6) L 01/27/21 04:19 MCV 90 fl (84-94) 01/27/21 04:19 MCH 31 pg (28-32) 01/27/21 04:19 MCHC 34 % (32-34) 01/27/21 04:19 RDW 16.1 % (13.2-15.2) H 01/27/21 04:19 Plt Count 171 K/mm3 (140-440) 01/27/21 04:19 Lymph % (Auto) 7.5 % (13.4-35.0) L 01/27/21 04:19 [place] % (Auto) 9.3 % (0.0-7.3) H 01/27/21 04:19 Eos % (Auto) 4.8 % (0.0-4.3) H 01/27/21 04:19 Baso % (Auto) 0.4 % (0.0-1.8) 01/27/21 04:19 Lymph # (Auto) 0.9 K/mm3 (1.2-5.4) L 01/27/21 04:19 [place] # (Auto) 1.1 K/mm3 (0.0-0.8) H 01/27/21 04:19 Eos # (Auto) 0.6 K/mm3 (0.0-0.4) H 01/27/21 04:19 Baso # (Auto) 0.0 K/mm3 (0.0-0.1) 01/27/21 04:19 Add Manual Diff Complete 01/10/21 09:26 Total Counted 100 01/10/21 09:26 Seg Neutrophils % 78.0 % (40.0-70.0) H 01/27/21 04:19 Seg Neuts % (Manual) 95.0 % (40.0-70.0) H 01/10/21 09:26 Band Neutrophils % 1.0 % 01/10/21 09:26 Lymphocytes % (Manual) 3.0 % (13.4-35.0) L 01/10/21 09:26 Reactive Lymphs % (Man) 1.0 % 12/29/20 05:16 Monocytes % (Manual) 1.0 % (0.0-7.3) 01/10/21 09:26 Eosinophils % (Manual) 2.0 % (0.0-4.3) 12/29/20 05:16 Metamyelocytes % 2.0 % 12/29/20 05:16 Nucleated RBC % Not Reportable 01/10/21 09:26 Seg Neutrophils # 9.7 K/mm3 (1.8-7.7) H 01/27/21 04:19 Seg Neutrophils # Man 17.3 K/mm3 (1.8-7.7) H 01/10/21 09:26 Band Neutrophils # 0.2 K/mm3 01/10/21 09:26 Lymphocytes # (Manual) 0.5 K/mm3 (1.2-5.4) L 01/10/21 09:26 Abs React Lymphs (Man) 0.0 K/mm3 01/10/21 09:26 Monocytes # (Manual) 0.2 K/mm3 (0.0-0.8) 01/10/21 09:26 Eosinophils # (Manual) 0.0 K/mm3 (0.0-0.4) 01/10/21 09:26 Basophils # (Manual) 0.0 K/mm3 (0.0-0.1) 01/10/21 09:26 Metamyelocytes # 0.0 K/mm3 01/10/21 09:26 Myelocytes # 0.0 K/mm3 01/10/21 09:26 Promyelocytes # 0.0 K/mm3 01/10/21 09:26 Blast Cells # 0.0 K/mm3 01/10/21 09:26 WBC Morphology Not Reportable 01/10/21 09:26 Hypersegmented Neuts Not Reportable 01/10/21 09:26 Hyposegmented Neuts Not Reportable 01/10/21 09:26 Hypogranular Neuts Not Reportable 01/10/21 09:26 Smudge Cells Not Reportable 01/10/21 09:26 Toxic Granulation 1+ 01/10/21 09:26 Toxic Vacuolation Not Reportable 01/10/21 09:26 Dohle Bodies Not Reportable 01/10/21 09:26 Pelger-Huet Anomaly Not Reportable 01/10/21 09:26 Lamar Rods Not Reportable 01/10/21 09:26 Platelet Estimate Consistent w auto 01/10/21 09:26 Clumped Platelets Not Reportable 01/10/21 09:26 Plt Clumps, EDTA Not Reportable 01/10/21 09:26 Large Platelets Not Reportable 01/10/21 09:26 Giant Platelets Not Reportable 01/10/21 09:26 Platelet Satelliting Not Reportable 01/10/21 09:26 Plt Morphology Comment Not Reportable 01/10/21 09:26 RBC Morphology Not Reportable 01/10/21 09:26 Dimorphic RBCs Not Reportable 01/10/21 09:26 Polychromasia Not Reportable 01/10/21 09:26 Hypochromasia Not Reportable 01/10/21 09:26 Poikilocytosis Not Reportable 01/10/21 09:26 Anisocytosis 1+ 01/10/21 09:26 Microcytosis Not Reportable 01/10/21 09:26 Macrocytosis Not Reportable 01/10/21 09:26 Spherocytes Not Reportable 01/10/21 09:26 Pappenheimer Bodies Not Reportable 01/10/21 09:26 Sickle Cells Not Reportable 01/10/21 09:26 Target Cells Not Reportable 01/10/21 09:26 Tear Drop Cells Not Reportable 01/10/21 09:26 Ovalocytes Not Reportable 01/10/21 09:26 Helmet Cells Not Reportable 01/10/21 09:26 [place] Bodies Not Reportable 01/10/21 09:26 [place] Rings Not Reportable 01/10/21 09:26 [place] Cells Not Reportable 01/10/21 09:26 Bite Cells Not Reportable 01/10/21 09:26 Crenated Cell Not Reportable 01/10/21 09:26 Elliptocytes Not Reportable 01/10/21 09:26 Acanthocytes (Spur) Not Reportable 01/10/21 09:26 Rouleaux Not Reportable 01/10/21 09:26 Hemoglobin C Crystals Not Reportable 01/10/21 09:26 Schistocytes Not Reportable 01/10/21 09:26 Malaria parasites Not Reportable 01/10/21 09:26 Lucas Bodies Not Reportable 01/10/21 09:26 Hem Pathologist Commnt No 01/10/21 09:26 PT 16.9 Sec. (12.2-14.9) H 01/01/21 12:45 INR 1.39 (0.87-1.13) H 01/01/21 12:45 APTT 25.1 Sec. (24.2-36.6) 12/22/20 14:38 ABG pH 7.345 pH Units (7.350-7.450) L 01/07/21 17:14 POC ABG pCO2 41.4 mmHg (32.0-48.0) 01/07/21 03:07 ABG pCO2 40.3 mm Hg 01/07/21 17:14 POC ABG pO2 94.5 mmHg (83-108) 01/07/21 03:07 ABG pO2 67.4 mm Hg (80.0-90.0) L 01/07/21 17:14 POC ABG HCO3 22.7 01/07/21 03:07 ABG HCO3 21.5 mmol/L (20.0-26.0) 01/07/21 17:14 ABG O2 Saturation 94.3 % (95.0-99.0) L 01/07/21 17:14 ABG O2 Content 11.6 (0.0-44) 01/07/21 17:14 POC ABG Base Excess -2.7 01/07/21 03:07 ABG Base Excess -3.9 mmol/L (-2.0-3.0) L 01/07/21 17:14 ABG Hemoglobin 8.9 gm/dl (14.0-18.0) L 01/07/21 17:14 ABG Oxyhemoglobin 96.6 (94-98) 01/07/21 03:07 ABG Carboxyhemoglobin 1.5 % (0.0-5.0) 01/07/21 17:14 ABG Methemoglobin 0.6 % (0.0-1.5) 01/07/21 17:14 ABG Sodium 135.6 mmol/L (136.0-145.0) L 01/07/21 03:07 ABG Potassium 4.0 mmol/L (3.40-4.50) 01/07/21 03:07 ABG Chloride 102.0 mmol/L (98-107) 01/07/21 03:07 ABG Glucose 181 mg/dL (65-95) H 01/07/21 03:07 Oxyhemoglobin 92.3 % (95.0-99.0) L 01/07/21 17:14 Carboxyhemoglobin 0.7 (0.5-1.5) 01/07/21 03:07 FiO2 21 % 01/07/21 17:14 FiO2 % 45.0 01/07/21 03:07 Sodium 140 mmol/L (137-145) 01/30/21 04:15 Potassium 3.7 mmol/L (3.6-5.0) 01/30/21 04:15 Chloride 98.4 mmol/L (98-107) 01/30/21 04:15 Carbon Dioxide 25 mmol/L (22-30) 01/30/21 04:15 Anion Gap 20 mmol/L 01/30/21 04:15 BUN 73 mg/dL (9-20) H 01/30/21 04:15 Creatinine 9.2 mg/dL (0.8-1.3) H 01/30/21 04:15 Estimated GFR 7 ml/min 01/30/21 04:15 BUN/Creatinine Ratio 8 % 01/30/21 04:15 Glucose 119 mg/dL (75-100) H 01/30/21 04:15 POC Glucose 126 mg/dL (70-105) H 01/30/21 06:55 Lactic Acid 1.10 mmol/L (0.7-2.0) 01/14/21 05:39 Calcium 9.0 mg/dL (8.4-10.2) 01/30/21 04:15 Phosphorus 4.70 mg/dL (2.5-4.5) H D 01/30/21 04:15 Magnesium 2.30 mg/dL (1.7-2.3) 01/30/21 04:15 Total Bilirubin 0.50 mg/dL (0.1-1.2) 01/29/21 06:45 AST 23 units/L (5-40) 01/29/21 06:45 ALT 23 units/L (7-56) 01/29/21 06:45 Alkaline Phosphatase 182 units/L (35-129) H 01/29/21 06:45 Ammonia 30.0 umol/L (25-60) 12/22/20 14:38 Troponin T 0.021 ng/mL (0.00-0.029) 12/22/20 14:38 Total Protein 6.0 g/dL (6.3-8.2) L 01/29/21 06:45 Albumin 2.9 g/dL (3.9-5) L 01/29/21 06:45 Albumin/Globulin Ratio 0.9 % 01/29/21 06:45 Triglycerides 72 mg/dL (2-149) 01/30/21 04:15 Lipase 41 units/L (13-60) 12/22/20 14:38 Procalcitonin > 200.00 ng/mL (<0.15) 12/24/20 15:06 TSH 1.470 mlU/mL (0.270-4.200) 12/28/20 19:44 Arterial Blood Glucose 181 mg/dL (65-95) H 01/07/21 03:07 Arterial Blood Ionized Calcium 4.3 mg/dL (4.6-5.3) L 01/07/21 03:07 Urine Color Yellow (Yellow) 12/22/20 18:53 Urine Turbidity Clear (Clear) 12/22/20 18:53 Urine pH 7.0 (5.0-7.0) 12/22/20 18:53 Ur Specific [place] 1.012 (1.003-1.030) 12/22/20 18:53 Urine Protein >500 mg/dL (Negative) 12/22/20 18:53 Urine Glucose (UA) Neg mg/dL (Negative) 12/22/20 18:53 Urine Ketones Neg mg/dL (Negative) 12/22/20 18:53 Urine Blood Neg (Negative) 12/22/20 18:53 Urine Nitrite Neg (Negative) 12/22/20 18:53 Urine Bilirubin Neg (Negative) 12/22/20 18:53 Urine Urobilinogen < 2.0 mg/dL (<2.0) 12/22/20 18:53 Ur Leukocyte Esterase Neg (Negative) 12/22/20 18:53 Urine WBC (Auto) < 1.0 /HPF (0.0-6.0) 12/22/20 18:53 Urine RBC (Auto) 1.0 /HPF (0.0-6.0) 12/22/20 18:53 Fluid Type Dialysate 12/22/20 Unknown Fluid Color Colorless 12/22/20 Unknown Fluid Appearance Cloudy 12/22/20 Unknown Fluid WBC 208 /mm3 12/22/20 Unknown Fluid RBC 45 /mm3 12/22/20 Unknown Fluid Seg Neutrophils 82.0 % 12/22/20 Unknown Fluid Lymphocytes 11.0 % 12/22/20 Unknown Fluid Reactive Lymphs 0 % 12/22/20 Unknown Fluid Monocytes 7.0 % 12/22/20 Unknown Fluid Eosinophils 0 % 12/22/20 Unknown Fluid Basophils 0 % 12/22/20 Unknown Random Vancomycin 13.7 ug/mL (0-40.0) 12/26/20 Unknown Digoxin 0.8 ng/mL (0.9-2.0) L 01/11/21 05:18 Hepatitis A IgM Ab Non-reactive (NonReactive) 12/23/20 11:38 Hep Bs Antigen Non-reactive (Negative) 12/23/20 11:38 Hep B Core IgM Ab Non-reactive (NonReactive) 12/23/20 11:38 Hepatitis C Antibody Non-reactive (NonReactive) 12/23/20 11:38 Blood Type A POSITIVE 01/06/21 07:10 Antibody Screen Negative 01/06/21 07:10 Crossmatch See Detail 01/06/21 07:10 Jeffery/IV: Voiding Method Urinal Active Medications - Current Medications Current Medications: Generic Name Dose Route Start Last Admin Trade Name Freq PRN Reason Stop Dose Admin Acetaminophen 650 mg 12/31/20 15:30 01/21/21 05:28 Acetaminophen 650 Mg Rect Supp HI 650 mg Q6H PRN Administration Non Cardiac Pain or Temp>100.5 Clonidine HCl 0.2 mg 01/11/21 10:00 01/25/21 09:42 Clonidine Tts 0.2 Mg/24 Hr Patch TD 0.2 mg We THOMAS Administration Dextrose 50 ml 01/14/21 17:59 01/18/21 15:10 Dextrose 50% In Water (25gm) 50 Ml Syringe IV 20 ml Q30MIN PRN Administration Hypoglycemia Protocol Digoxin 0.125 mg 01/09/21 12:00 01/29/21 11:52 Digoxin 0.5 Mg/2 Ml Inj IV 0.125 mg Q48H THOMAS Administration Diphenhydramine HCl 50 mg 01/20/21 10:10 01/29/21 02:07 Diphenhydramine 50 Mg/Ml Vial IV 50 mg Q6H PRN Administration Itching Famotidine 10 mg 12/24/20 13:00 01/29/21 22:20 Famotidine 20 Mg/2 Ml Inj IV 10 mg BID THOMAS Administration Haloperidol Lactate 5 mg 12/29/20 14:16 01/22/21 23:56 Haloperidol Lactate 5 Mg/1 Ml Inj IV 5 mg Q12H PRN Administration Agitation Heparin Sodium (Porcine) 5,000 unit 12/24/20 10:00 01/29/21 22:20 Heparin 5,000 Unit/1 Ml Vial SUB-Q 5,000 unit Q12HR THOMAS Administration Hydralazine HCl 10 mg 01/10/21 14:00 01/30/21 06:02 Hydralazine 20 Mg/1 Ml Inj IV 10 mg Q4HR THOMAS Administration Hydromorphone HCl 0.25 mg 01/09/21 10:53 01/30/21 01:54 Hydromorphone 1 Mg/1 Ml Inj IV 0.25 mg Q6H PRN Administration Pain , Severe (7-10) Hydrophilic Ointment 1 applic 12/31/20 06:39 01/11/21 21:28 Lip Therapy Vaseline TP 1 applic Q2HR PRN Administration Dry Lips Octreotide Acetate 100 mcg/ 101 mls @ 200 mls/hr 01/21/21 15:00 01/30/21 00:21 Sodium Chloride IV 200 mls/hr Q8H THOMAS Administration Sodium Chloride 100 mls @ 999 mls/hr 01/27/21 18:37 Nacl 0.9% IV [place] PRN Hypotension Amino Acids/Electrolytes/Dextrose 2,016 mls @ 84 mls/hr 01/29/21 20:00 01/29/21 22:26 Tpn Adult IV 01/30/21 19:59 84 mls/hr [email or web address] [facility] Administration Protocol Fat Emulsion Intravenous 250 mls @ 21 mls/hr 01/30/21 20:00 Intralipid 20% IV 01/31/21 08:00 [email or web address] [facility] Amino Acids/Electrolytes/Dextrose 2,016 mls @ 84 mls/hr 01/30/21 20:00 Tpn Adult IV 01/31/21 19:59 [email or web address] [facility] Protocol Insulin Glargine 5 units 01/18/21 22:00 01/30/21 02:45 Insulin Glargine 100 Units/Ml SUB-Q Not Given QHS [facility] Insulin Human Lispro 0 unit 01/03/21 12:00 01/30/21 08:01 Insulin Lispro 100 Unit/Ml SUB-Q Not Given Q6HR [facility] Protocol Metoprolol Tartrate 5 mg 12/30/20 12:00 01/30/21 05:54 Metoprolol Tartrate 5 Mg/5 Ml Inj IV 5 mg Q4HR [facility] Administration Multi-Ingred Cream/Lotion/Oil/Oint 1 applic 12/31/20 06:39 Mineral Oil/Petrolatum, White Ophth Oint 3.5 Gm OU Q4HR PRN Dry Eye(s) Ondansetron HCl 4 mg 01/25/21 11:56 01/28/21 06:26 Ondansetron 4 Mg/2 Ml Inj IV 4 mg Q4H PRN Administration Nausea And Vomiting Scopolamine 1 each 01/15/21 11:00 01/27/21 10:10 Scopolamine Transdermal Patch 72 Hr TD 1 each Q3D THOMAS Administration Sodium Chloride 10 ml 12/22/20 22:00 01/30/21 08:02 Sodium Chloride 0.9% 10 Ml Flush Syringe IV 10 ml BID THOMAS Administration Sodium Chloride 10 ml 12/22/20 19:42 01/29/21 02:08 Sodium Chloride 0.9% 10 Ml Flush Syringe IV 10 ml PRN PRN Administration LINE FLUSH Nutrition/Malnutrition Assess - Dietary Evaluation Nutrition/Malnutrition Findings: Nutrition Notes Start: 12/24/20 12:36 Freq: Status: Active Protocol: Document 01/30/21 08:03 JUAN (Rec: 01/30/21 08:14 JUAN [id number]) Nutrition Notes Initial or Follow up Reassessment Current Diagnosis CKD (stage V CKD),Sepsis, Hypertension,Heart Failure, Small Bowel Obstruction Other Pertinent Diagnosis Peritonitis, SBO s/p resection Current Diet CPN at 84 ml/hr Labs/Tests Phos 4.7 Pertinent Medications 01/29: K Phos 30 mmol Mg Sulfate 2 gm Height 5 ft 7 in Weight 80 kg [place] Body Weight (kg) 67.27 BMI 27.6 Weight Status Overweight Subjective/Other Information TPN day 36. Will take out phos . Percent of energy/protein needs met: 100%/100% Burn Absent Trauma Absent Current % PO Negligible Minimum of two criteria No #2 Nutrition Diagnosis Increased nutrient needs ( specify in comment below) Diagnosis Progress(for reassessment Continues documentation) #1 Nutrition Diagnosis Inadequate oral intake Diagnosis Progress(for reassessment Continues documentation) Is patient on ventilator? No Is Patient Ambulatory and/or Out of Bed No REE-(Divide-[facility]-confined to bed) 1875.348 Kcal/Kg value to use for calculation 21 Approximate Energy Requirements Using 1680 kcal/Kg Calculation Used for Recommendations Kcal/kg Additional Notes Pro needs: 101-121 g/day (1.25 -1.5 g/kg AdjBW, 81kg) Fluid needs per MD. Nutrition Intervention Change Diet Order: Continue CPN Nutrition Support: Continous CPN at 84 ml/hr: 0 mmol Phos MVI, Lipids Kcal 2,174 Protein (gm) 121 Carbohydrates (gm) 350 Fat (gm) 50 Fluid (mL) 2,266 Fiber (gm) 0 Goal #1 Meet at least 75% of estimated energy and protein needs via CPN Anticipated Discharge Needs: continuous TPN at 84ml/hr Follow-Up By: 01/31/21 Additional Comments FU for TPN
--- NOTE | 2021-01-30 14:02 | Progress Note ---
Assessment and Plan This is a 60 YO Male with ESRD on PD, GERD, Crohn's Disease, Nicotine Dependence, HTN, Systolic CHF(EF 35%) who presented to the emergency department on 12/22 with complaints of abdominal pain which began shortly after eating fast food rated 10/10 which is periumbilical, constant, associated with fever, nausea and multiple sites of vomiting and self-reported inability to undergo PD. In the emergency room patient underwent a CT scan of the abdomen/pelvis which revealed evidence of partial small bowel obstruction, symptoms were consistent with bacterial peritonitis. Patient was admitted to the hospital service with sepsis, peritonitis, and small bowel obstruction with consults to general surgery, nephrology, infectious disease and [facility]. On 01/06/21 the patient underwent an exploratory laparotomy, jejunal colonic anastomosis, and segmental small bowel resection. ABG's (01/07/21): pH 7.345 pH POC ABG pCO2 41.4 mmHg ABG pCO2 40.3 mm Hg POC ABG pO2 94.5 mmHg ABG pO2 67.4 mm Hg POC ABG HCO3 22.7 ABG O2 Saturation 94.3 % Patient alert, awake . Patient is on room air. O2 saturation 98%. No acute res piratory distress. Patient afebrile. Has mild leukocytosis. Blood pressure 161/80. Patient is on Clonadine and metoprol. Management as per primary care. Chest x-ray 01/03/21 reported There is decreased inspiration compared to yesterday's exam. Hazy opacity in the right perihilar region and larger area of infiltration in the left lower lung appears stable given differences in the level of inspiration. No large pleural effusion or pneumothorax. Patient presently on s/c heparin, famotidine - Patient Problems (1) Nicotine dependence Current Visit: Yes Status: Acute Qualifiers: Nicotine product type: cigarettes Substance use status: in withdrawal Qualified Code(s): F17.213 - Nicotine dependence, cigarettes, with withdrawal Plan to address problem: Counseled patient to stop smoking. (2) SOB (shortness of breath) Current Visit: No Status: Acute Plan to address problem: Improved. Patient resting on room air at this time. O2 saturation 98%. (3) Atrial fibrillation Current Visit: Yes Status: Acute Plan to address problem: Management as per cardiology. (4) CHF (congestive heart failure) Current Visit: No Status: Acute Qualifiers: Heart failure chronicity: chronic Plan to address problem: Management as per cardiology. (5) Small bowel obstruction Current Visit: Yes Status: Acute Plan to address problem: On 01/06/21 the patient underwent an exploratory laparotomy, jejunal colonic anastomosis, and segmental small bowel resection. Management as per surgery. Continue incentive spirometry (6) Small intestinal gangrene Current Visit: Yes Status: Acute Plan to address problem: On 01/06/21 the patient underwent an exploratory laparotomy, jejunal colonic anastomosis, and segmental small bowel resection. Management as per surgery. Continue incentive spirometry (7) Accelerated hypertension Current Visit: No Status: Acute Plan to address problem: Management as per primary care. (8) Acute on chronic kidney disease, stage 3 Current Visit: No Status: Acute Plan to address problem: Management as per nephrology. Subjective Date of service: 01/30/21 Principal diagnosis: Ac hypoxemic resp failure; Severe Sepsis; Peritonitis; Acu te SBO; ESRD; CHF Interval history: This is a 60 YO Male with ESRD on PD, GERD, Crohn's Disease, Nicotine Dependence, HTN, Systolic CHF(EF 35%) who presented to the emergency department on 12/22 with complaints of abdominal pain which began shortly after eating fast food rated 10/10 which is periumbilical, constant, associated with fever, nausea and multiple sites of vomiting and self-reported inability to undergo PD. In the emergency room patient underwent a CT scan of the abdomen/pelvis which revealed evidence of partial small bowel obstruction, symptoms were consistent with bacterial peritonitis. Patient was admitted to the hospital service with sepsis, peritonitis, and small bowel obstruction with consults to general surgery, nephrology, infectious disease and [facility]. On 01/06/21 the patient underwent an exploratory laparotomy, jejunal colonic anastomosis, and segmental small bowel resection. ABG's (01/07/21): pH 7.345 pH POC ABG pCO2 41.4 mmHg ABG pCO2 40.3 mm Hg POC ABG pO2 94.5 mmHg ABG pO2 67.4 mm Hg POC ABG HCO3 22.7 ABG O2 Saturation 94.3 % Patient alert, awake . Patient is on room air. O2 saturation 98%. No acute r espiratory distress. Patient afebrile. Has mild leukocytosis. Blood pressure 161/80. Patient is on Clonadine and metoprol. Management as per primary care. Chest x-ray 01/03/21 reported There is decreased inspiration compared to yesterday's exam. Hazy opacity in the right perihilar region and larger area of infiltration in the left lower lung appears stable given differences in the level of inspiration. No large pleural effusion or pneumothorax. Patient presently on s/c heparin, famotidine Objective Vital Signs - 12hr 01/30/21 01/30/21 01/30/21 02:13 02:24 02:42 Temperature Pulse Rate 72 Respiratory 17 Rate Respiratory 16 Rate [Anterior Abdomen] Blood Pressure 157/74 Blood Pressure [Right] O2 Sat by Pulse Oximetry 01/30/21 01/30/21 01/30/21 04:00 05:51 05:54 Temperature 99 F Pulse Rate 74 72 70 Respiratory 17 17 Rate Respiratory Rate [Anterior Abdomen] Blood Pressure 170/83 Blood Pressure 172/83 [Right] O2 Sat by Pulse 100 Oximetry 01/30/21 01/30/21 01/30/21 06:02 06:11 10:10 Temperature Pulse Rate 67 65 67 Respiratory Rate Respiratory Rate [Anterior Abdomen] Blood Pressure 160/78 183/95 Blood Pressure 163/72 [Right] O2 Sat by Pulse 100 Oximetry 01/30/21 01/30/21 01/30/21 10:15 10:30 10:45 Temperature Pulse Rate 77 78 73 Respiratory Rate Respiratory Rate [Anterior Abdomen] Blood Pressure 172/76 168/88 171/93 Blood Pressure [Right] O2 Sat by Pulse Oximetry 01/30/21 01/30/21 01/30/21 11:00 11:15 11:30 Temperature Pulse Rate 76 74 73 Respiratory Rate Respiratory Rate [Anterior Abdomen] Blood Pressure 167/94 169/86 165/89 Blood Pressure [Right] O2 Sat by Pulse Oximetry 01/30/21 01/30/21 11:45 12:00 Temperature Pulse Rate 72 73 Respiratory Rate Respiratory Rate [Anterior Abdomen] Blood Pressure 172/81 172/87 Blood Pressure [Right] O2 Sat by Pulse Oximetry Constitutional: no acute distress, alert, other (elderly male with normal respiratory effort at rest) Eyes: non-icteric ENT: oropharynx dry, oropharyngeal exudate pre Neck: supple, no lymphadenopathy, no JVD Effort: normal Ascultation: Bilateral: diminished breath sounds, rales, rhonchi Percussion: Bilateral: not dull Cardiovascular: regular rate and rhythm, other (S1,S2) Gastrointestinal: hypoactive bowel sounds, soft, non-tender, non-distended (protuberant), other (Midline abdominal incision; + HARIS drain in place) Integumentary: other (Midline abdominal incision ) Extremities: no cyanosis, no edema, pulses normal, no ischemia or petechiae Neurologic: non-focal exam (grossly), pupils equal and round, CN II-XII normal Psychiatric: mood appropriate, affect normal CBC and BMP: 01/27/21 04:19 01/30/21 04:15 ABG, PT/INR, D-dimer: ABG ABG pH 7.345 pH Units (7.350-7.450) L 01/07/21 17:14 POC ABG pCO2 41.4 mmHg (32.0-48.0) 01/07/21 03:07 ABG pCO2 40.3 mm Hg 01/07/21 17:14 POC ABG pO2 94.5 mmHg (83-108) 01/07/21 03:07 ABG pO2 67.4 mm Hg (80.0-90.0) L 01/07/21 17:14 POC ABG HCO3 22.7 01/07/21 03:07 ABG O2 Saturation 94.3 % (95.0-99.0) L 01/07/21 17:14 PT/INR, D-dimer PT 16.9 Sec. (12.2-14.9) H 01/01/21 12:45 INR 1.39 (0.87-1.13) H 01/01/21 12:45 Abnormal lab findings: Abnormal Labs 12/22/20 12/22/20 12/22/20 14:38 14:38 14:38 WBC RBC Hgb 11.2 L Hct 35.0 L MCV MCHC RDW 16.7 H Plt Count Lymph % (Auto) [place] % (Auto) Eos % (Auto) Lymph # (Auto) [place] # (Auto) Eos # (Auto) Seg Neutrophils % Seg Neuts % (Manual) 94.0 H Lymphocytes % (Manual) 5.0 L Monocytes % (Manual) Seg Neutrophils # Seg Neutrophils # Man Lymphocytes # (Manual) 0.3 L Monocytes # (Manual) PT INR ABG pH POC ABG pCO2 POC ABG pO2 ABG pO2 ABG HCO3 ABG O2 Saturation ABG Base Excess ABG Hemoglobin ABG Oxyhemoglobin ABG Sodium ABG Potassium ABG Chloride ABG Glucose Oxyhemoglobin Sodium Potassium Chloride Carbon Dioxide BUN 58 H Creatinine 13.2 H Glucose 113 H POC Glucose Lactic Acid 3.60 H* Calcium Phosphorus Magnesium Total Bilirubin 1.30 H AST ALT Alkaline Phosphatase 155 H Total Protein Albumin Triglycerides Arterial Blood Glucose Arterial Blood Ionized Calcium Digoxin Crossmatch 12/22/20 12/22/20 12/23/20 16:26 17:47 05:22 WBC RBC Hgb Hct MCV MCHC RDW Plt Count Lymph % (Auto) [place] % (Auto) Eos % (Auto) Lymph # (Auto) [place] # (Auto) Eos # (Auto) Seg Neutrophils % Seg Neuts % (Manual) Lymphocytes % (Manual) Monocytes % (Manual) Seg Neutrophils # Seg Neutrophils # Man Lymphocytes # (Manual) Monocytes # (Manual) PT INR ABG pH POC ABG pCO2 POC ABG pO2 ABG pO2 ABG HCO3 ABG O2 Saturation ABG Base Excess ABG Hemoglobin ABG Oxyhemoglobin ABG Sodium ABG Potassium ABG Chloride ABG Glucose Oxyhemoglobin Sodium Potassium Chloride Carbon Dioxide BUN Creatinine Glucose POC Glucose Lactic Acid 2.80 H* 3.10 H* 2.30 H* Calcium Phosphorus Magnesium Total Bilirubin AST ALT Alkaline Phosphatase Total Protein Albumin Triglycerides Arterial Blood Glucose Arterial Blood Ionized Calcium Digoxin Crossmatch 12/23/20 12/23/20 12/23/20 05:22 05:22 06:35 WBC 12.1 H RBC Hgb 11.0 L Hct 33.7 L MCV MCHC RDW 16.9 H Plt Count Lymph % (Auto) [place] % (Auto) Eos % (Auto) Lymph # (Auto) [place] # (Auto) Eos # (Auto) Seg Neutrophils % Seg Neuts % (Manual) 93.0 H Lymphocytes % (Manual) 1.0 L Monocytes % (Manual) Seg Neutrophils # Seg Neutrophils # Man 11.3 H Lymphocytes # (Manual) 0.1 L Monocytes # (Manual) PT INR ABG pH POC ABG pCO2 POC ABG pO2 ABG pO2 ABG HCO3 ABG O2 Saturation ABG Base Excess ABG Hemoglobin ABG Oxyhemoglobin ABG Sodium ABG Potassium ABG Chloride ABG Glucose Oxyhemoglobin Sodium Potassium 5.7 H D Chloride Carbon Dioxide BUN 73 H Creatinine 14.2 H Glucose POC Glucose Lactic Acid 2.30 H* Calcium 7.9 L Phosphorus Magnesium Total Bilirubin 1.40 H AST 119 H ALT 130 H Alkaline Phosphatase 183 H Total Protein 6.1 L Albumin 3.6 L Triglycerides Arterial Blood Glucose Arterial Blood Ionized Calcium Digoxin Crossmatch 12/23/20 12/23/20 12/23/20 11:40 13:53 16:47 WBC RBC Hgb 10.0 L Hct 30.4 L MCV MCHC RDW Plt Count Lymph % (Auto) [place] % (Auto) Eos % (Auto) Lymph # (Auto) [place] # (Auto) Eos # (Auto) Seg Neutrophils % Seg Neuts % (Manual) Lymphocytes % (Manual) Monocytes % (Manual) Seg Neutrophils # Seg Neutrophils # Man Lymphocytes # (Manual) Monocytes # (Manual) PT INR ABG pH POC ABG pCO2 POC ABG pO2 137.5 H ABG pO2 ABG HCO3 ABG O2 Saturation ABG Base Excess ABG Hemoglobin 9.7 L ABG Oxyhemoglobin ABG Sodium 134.1 L ABG Potassium 6.6 H ABG Chloride ABG Glucose 103 H Oxyhemoglobin Sodium Potassium Chloride Carbon Dioxide BUN Creatinine Glucose POC Glucose Lactic Acid Calcium Phosphorus Magnesium Total Bilirubin AST ALT Alkaline Phosphatase Total Protein Albumin Triglycerides Arterial Blood Glucose 103 H Arterial Blood Ionized Calcium 3.8 L Digoxin Crossmatch See Detail 12/23/20 12/23/20 12/24/20 20:35 20:40 01:20 WBC RBC Hgb Hct MCV MCHC RDW Plt Count Lymph % (Auto) [place] % (Auto) Eos % (Auto) Lymph # (Auto) [place] # (Auto) Eos # (Auto) Seg Neutrophils % Seg Neuts % (Manual) Lymphocytes % (Manual) Monocytes % (Manual) Seg Neutrophils # Seg Neutrophils # Man Lymphocytes # (Manual) Monocytes # (Manual) PT INR ABG pH 7.252 L POC ABG pCO2 POC ABG pO2 ABG pO2 50.1 L ABG HCO3 ABG O2 Saturation 81.1 L ABG Base Excess -5.9 L ABG Hemoglobin 12.1 L ABG Oxyhemoglobin ABG Sodium ABG Potassium ABG Chloride ABG Glucose Oxyhemoglobin 78.6 L Sodium 134 L Potassium 6.9 H* D 6.3 H* Chloride Carbon Dioxide 18 L 20 L BUN 87 H 91 H Creatinine 15.3 H 15.3 H Glucose 103 H POC Glucose Lactic Acid Calcium 6.9 L 7.5 L Phosphorus Magnesium Total Bilirubin AST ALT Alkaline Phosphatase Total Protein Albumin Triglycerides Arterial Blood Glucose Arterial Blood Ionized Calcium Digoxin Crossmatch 12/24/20 12/24/20 12/24/20 04:00 10:29 10:29 WBC RBC 3.49 L Hgb 10.5 L Hct 31.2 L MCV MCHC RDW 17.5 H Plt Count 124 L Lymph % (Auto) 3.7 L [place] % (Auto) 9.8 H Eos % (Auto) Lymph # (Auto) 0.2 L [place] # (Auto) Eos # (Auto) Seg Neutrophils % 85.9 H Seg Neuts % (Manual) Lymphocytes % (Manual) Monocytes % (Manual) Seg Neutrophils # Seg Neutrophils # Man Lymphocytes # (Manual) Monocytes # (Manual) PT INR ABG pH POC ABG pCO2 28.1 L POC ABG pO2 ABG pO2 ABG HCO3 ABG O2 Saturation ABG Base Excess ABG Hemoglobin ABG Oxyhemoglobin ABG Sodium 133.9 L ABG Potassium 5.3 H ABG Chloride 108.0 H ABG Glucose Oxyhemoglobin Sodium Potassium 5.6 H Chloride Carbon Dioxide 19 L BUN 99 H Creatinine 16.9 H Glucose 52 L POC Glucose Lactic Acid Calcium 7.6 L Phosphorus Magnesium Total Bilirubin 3.50 H AST 67 H ALT 71 H Alkaline Phosphatase Total Protein 3.5 L D Albumin 2.1 L Triglycerides Arterial Blood Glucose Arterial Blood Ionized Calcium 4.0 L Digoxin Crossmatch 12/25/20 12/25/20 12/25/20 03:33 04:00 04:00 WBC 3.8 L RBC 2.90 L Hgb 8.6 L Hct 25.7 L MCV MCHC RDW 16.7 H Plt Count 113 L Lymph % (Auto) [place] % (Auto) Eos % (Auto) Lymph # (Auto) [place] # (Auto) Eos # (Auto) Seg Neutrophils % Seg Neuts % (Manual) Lymphocytes % (Manual) Monocytes % (Manual) Seg Neutrophils # Seg Neutrophils # Man Lymphocytes # (Manual) Monocytes # (Manual) PT INR ABG pH 7.544 H POC ABG pCO2 28.2 L POC ABG pO2 62.8 L ABG pO2 ABG HCO3 ABG O2 Saturation ABG Base Excess ABG Hemoglobin 9.3 L ABG Oxyhemoglobin 93.0 L ABG Sodium 130.3 L ABG Potassium ABG Chloride ABG Glucose 97 H Oxyhemoglobin Sodium Potassium Chloride Carbon Dioxide BUN 62 H Creatinine 11.4 H Glucose POC Glucose Lactic Acid Calcium 7.7 L Phosphorus 5.00 H Magnesium Total Bilirubin AST ALT Alkaline Phosphatase Total Protein Albumin Triglycerides Arterial Blood Glucose 97 H Arterial Blood Ionized Calcium 3.9 L Digoxin Crossmatch 12/26/20 12/26/20 12/27/20 04:46 Unknown 03:40 WBC 4.1 L RBC 2.61 L Hgb 7.8 L Hct 23.4 L MCV MCHC RDW 17.1 H Plt Count 119 L Lymph % (Auto) 5.3 L [place] % (Auto) 10.6 H Eos % (Auto) Lymph # (Auto) 0.2 L [place] # (Auto) Eos # (Auto) Seg Neutrophils % 78.8 H Seg Neuts % (Manual) Lymphocytes % (Manual) Monocytes % (Manual) Seg Neutrophils # Seg Neutrophils # Man Lymphocytes # (Manual) Monocytes # (Manual) PT INR ABG pH 7.333 L 7.332 L POC ABG pCO2 POC ABG pO2 ABG pO2 ABG HCO3 26.9 H ABG O2 Saturation ABG Base Excess -2.4 L ABG Hemoglobin 6.8 L 7.2 L ABG Oxyhemoglobin ABG Sodium ABG Potassium ABG Chloride ABG Glucose Oxyhemoglobin 93.0 L 93.1 L Sodium Potassium Chloride Carbon Dioxide BUN Creatinine Glucose POC Glucose Lactic Acid Calcium Phosphorus Magnesium Total Bilirubin AST ALT Alkaline Phosphatase Total Protein Albumin Triglycerides Arterial Blood Glucose Arterial Blood Ionized Calcium Digoxin Crossmatch 12/27/20 12/27/20 12/27/20 06:40 06:40 11:22 WBC 4.4 L RBC 2.49 L Hgb 7.4 L Hct 22.4 L MCV MCHC RDW 17.1 H Plt Count 111 L Lymph % (Auto) 6.7 L [place] % (Auto) 12.6 H Eos % (Auto) Lymph # (Auto) 0.3 L [place] # (Auto) Eos # (Auto) Seg Neutrophils % 77.6 H Seg Neuts % (Manual) Lymphocytes % (Manual) Monocytes % (Manual) Seg Neutrophils # Seg Neutrophils # Man Lymphocytes # (Manual) Monocytes # (Manual) PT INR ABG pH POC ABG pCO2 POC ABG pO2 ABG pO2 ABG HCO3 ABG O2 Saturation ABG Base Excess ABG Hemoglobin ABG Oxyhemoglobin ABG Sodium ABG Potassium ABG Chloride ABG Glucose Oxyhemoglobin Sodium Potassium Chloride Carbon Dioxide BUN 64 H Creatinine 9.8 H Glucose 147 H POC Glucose 134 H Lactic Acid Calcium 8.3 L Phosphorus 5.00 H Magnesium Total Bilirubin 3.70 H AST 72 H ALT Alkaline Phosphatase 142 H Total Protein 5.1 L D Albumin 2.9 L Triglycerides Arterial Blood Glucose Arterial Blood Ionized Calcium Digoxin Crossmatch 12/27/20 12/27/20 12/28/20 17:29 23:31 03:09 WBC RBC Hgb Hct MCV MCHC RDW Plt Count Lymph % (Auto) [place] % (Auto) Eos % (Auto) Lymph # (Auto) [place] # (Auto) Eos # (Auto) Seg Neutrophils % Seg Neuts % (Manual) Lymphocytes % (Manual) Monocytes % (Manual) Seg Neutrophils # Seg Neutrophils # Man Lymphocytes # (Manual) Monocytes # (Manual) PT INR ABG pH 7.474 H POC ABG pCO2 POC ABG pO2 ABG pO2 ABG HCO3 ABG O2 Saturation ABG Base Excess ABG Hemoglobin 7.8 L ABG Oxyhemoglobin ABG Sodium ABG Potassium ABG Chloride ABG Glucose Oxyhemoglobin Sodium Potassium Chloride Carbon Dioxide BUN Creatinine Glucose POC Glucose 121 H 131 H Lactic Acid Calcium Phosphorus Magnesium Total Bilirubin AST ALT Alkaline Phosphatase Total Protein Albumin Triglycerides Arterial Blood Glucose Arterial Blood Ionized Calcium Digoxin Crossmatch 12/28/20 12/28/20 12/28/20 05:37 05:40 05:40 WBC 4.3 L RBC 2.40 L Hgb 7.2 L Hct 21.5 L MCV MCHC RDW 17.4 H Plt Count 112 L Lymph % (Auto) 6.5 L [place] % (Auto) 16.7 H Eos % (Auto) Lymph # (Auto) 0.3 L [place] # (Auto) Eos # (Auto) Seg Neutrophils % 71.1 H Seg Neuts % (Manual) Lymphocytes % (Manual) Monocytes % (Manual) Seg Neutrophils # Seg Neutrophils # Man Lymphocytes # (Manual) Monocytes # (Manual) PT INR ABG pH POC ABG pCO2 POC ABG pO2 ABG pO2 ABG HCO3 ABG O2 Saturation ABG Base Excess ABG Hemoglobin ABG Oxyhemoglobin ABG Sodium ABG Potassium ABG Chloride ABG Glucose Oxyhemoglobin Sodium Potassium Chloride Carbon Dioxide BUN 85 H Creatinine 11.5 H Glucose 132 H POC Glucose 121 H Lactic Acid Calcium 8.2 L Phosphorus Magnesium 2.40 H Total Bilirubin 3.80 H AST 70 H ALT Alkaline Phosphatase 176 H Total Protein 5.0 L Albumin 2.9 L Triglycerides Arterial Blood Glucose Arterial Blood Ionized Calcium Digoxin Crossmatch 12/28/20 12/28/20 12/28/20 11:34 15:00 17:35 WBC RBC Hgb Hct MCV MCHC RDW Plt Count Lymph % (Auto) [place] % (Auto) Eos % (Auto) Lymph # (Auto) [place] # (Auto) Eos # (Auto) Seg Neutrophils % Seg Neuts % (Manual) Lymphocytes % (Manual) Monocytes % (Manual) Seg Neutrophils # Seg Neutrophils # Man Lymphocytes # (Manual) Monocytes # (Manual) PT INR ABG pH 7.461 H POC ABG pCO2 POC ABG pO2 72.2 L ABG pO2 ABG HCO3 ABG O2 Saturation ABG Base Excess ABG Hemoglobin 8.2 L ABG Oxyhemoglobin 93.6 L ABG Sodium 134.1 L ABG Potassium 3.2 L ABG Chloride ABG Glucose 135 H Oxyhemoglobin Sodium Potassium Chloride Carbon Dioxide BUN Creatinine Glucose POC Glucose 137 H 144 H Lactic Acid Calcium Phosphorus Magnesium Total Bilirubin AST ALT Alkaline Phosphatase Total Protein Albumin Triglycerides Arterial Blood Glucose 135 H Arterial Blood Ionized Calcium 4.4 L Digoxin Crossmatch 12/28/20 12/28/20 12/29/20 19:44 Unknown 00:21 WBC RBC Hgb Hct MCV MCHC RDW Plt Count Lymph % (Auto) [place] % (Auto) Eos % (Auto) Lymph # (Auto) [place] # (Auto) Eos # (Auto) Seg Neutrophils % Seg Neuts % (Manual) Lymphocytes % (Manual) Monocytes % (Manual) Seg Neutrophils # Seg Neutrophils # Man Lymphocytes # (Manual) Monocytes # (Manual) PT INR ABG pH 7.474 H POC ABG pCO2 POC ABG pO2 ABG pO2 ABG HCO3 ABG O2 Saturation ABG Base Excess ABG Hemoglobin 7.8 L ABG Oxyhemoglobin ABG Sodium 133.2 L ABG Potassium ABG Chloride ABG Glucose 139 H Oxyhemoglobin Sodium 135 L Potassium Chloride 96.6 L Carbon Dioxide BUN 47 H Creatinine 7.4 H Glucose 130 H POC Glucose 142 H Lactic Acid Calcium 8.3 L Phosphorus Magnesium Total Bilirubin AST ALT Alkaline Phosphatase Total Protein Albumin Triglycerides Arterial Blood Glucose 139 H Arterial Blood Ionized Calcium 4.3 L Digoxin Crossmatch 12/29/20 12/29/20 12/29/20 05:16 05:16 05:26 WBC RBC 2.53 L Hgb 7.7 L Hct 22.8 L MCV MCHC RDW 17.0 H Plt Count 130 L Lymph % (Auto) [place] % (Auto) Eos % (Auto) Lymph # (Auto) [place] # (Auto) Eos # (Auto) Seg Neutrophils % Seg Neuts % (Manual) 79.0 H Lymphocytes % (Manual) 9.0 L Monocytes % (Manual) Seg Neutrophils # Seg Neutrophils # Man Lymphocytes # (Manual) 0.6 L Monocytes # (Manual) PT INR ABG pH POC ABG pCO2 POC ABG pO2 ABG pO2 ABG HCO3 ABG O2 Saturation ABG Base Excess ABG Hemoglobin ABG Oxyhemoglobin ABG Sodium ABG Potassium ABG Chloride ABG Glucose Oxyhemoglobin Sodium Potassium 3.4 L Chloride 96.6 L Carbon Dioxide BUN 59 H Creatinine 8.3 H Glucose 127 H POC Glucose 141 H Lactic Acid Calcium 8.2 L Phosphorus Magnesium Total Bilirubin 3.00 H AST 88 H ALT Alkaline Phosphatase 188 H Total Protein 5.1 L Albumin 2.8 L Triglycerides Arterial Blood Glucose Arterial Blood Ionized Calcium Digoxin Crossmatch 12/29/20 12/29/20 12/29/20 11:33 17:29 23:22 WBC RBC Hgb Hct MCV MCHC RDW Plt Count Lymph % (Auto) [place] % (Auto) Eos % (Auto) Lymph # (Auto) [place] # (Auto) Eos # (Auto) Seg Neutrophils % Seg Neuts % (Manual) Lymphocytes % (Manual) Monocytes % (Manual) Seg Neutrophils # Seg Neutrophils # Man Lymphocytes # (Manual) Monocytes # (Manual) PT INR ABG pH POC ABG pCO2 POC ABG pO2 ABG pO2 ABG HCO3 ABG O2 Saturation ABG Base Excess ABG Hemoglobin ABG Oxyhemoglobin ABG Sodium ABG Potassium ABG Chloride ABG Glucose Oxyhemoglobin Sodium Potassium Chloride Carbon Dioxide BUN Creatinine Glucose POC Glucose 144 H 130 H 117 H Lactic Acid Calcium Phosphorus Magnesium Total Bilirubin AST ALT Alkaline Phosphatase Total Protein Albumin Triglycerides Arterial Blood Glucose Arterial Blood Ionized Calcium Digoxin Crossmatch 12/30/20 12/30/20 12/30/20 05:23 08:15 09:00 WBC RBC Hgb Hct MCV MCHC RDW Plt Count Lymph % (Auto) [place] % (Auto) Eos % (Auto) Lymph # (Auto) [place] # (Auto) Eos # (Auto) Seg Neutrophils % Seg Neuts % (Manual) Lymphocytes % (Manual) Monocytes % (Manual) Seg Neutrophils # Seg Neutrophils # Man Lymphocytes # (Manual) Monocytes # (Manual) PT INR ABG pH POC ABG pCO2 POC ABG pO2 ABG pO2 ABG HCO3 ABG O2 Saturation ABG Base Excess ABG Hemoglobin ABG Oxyhemoglobin ABG Sodium ABG Potassium ABG Chloride ABG Glucose Oxyhemoglobin Sodium 135 L Potassium Chloride 95.9 L Carbon Dioxide BUN 85 H Creatinine 10.6 H Glucose 128 H POC Glucose 135 H 127 H Lactic Acid Calcium 8.3 L Phosphorus Magnesium Total Bilirubin 2.40 H AST 85 H ALT Alkaline Phosphatase 216 H Total Protein 5.3 L Albumin 2.6 L Triglycerides 155 H Arterial Blood Glucose Arterial Blood Ionized Calcium Digoxin Crossmatch 12/30/20 12/30/20 12/30/20 09:00 11:53 15:49 WBC RBC 2.61 L Hgb 7.8 L Hct 23.7 L MCV MCHC RDW 17.3 H Plt Count Lymph % (Auto) [place] % (Auto) Eos % (Auto) Lymph # (Auto) [place] # (Auto) Eos # (Auto) Seg Neutrophils % Seg Neuts % (Manual) Lymphocytes % (Manual) Monocytes % (Manual) Seg Neutrophils # Seg Neutrophils # Man Lymphocytes # (Manual) Monocytes # (Manual) PT INR ABG pH POC ABG pCO2 POC ABG pO2 ABG pO2 ABG HCO3 ABG O2 Saturation ABG Base Excess ABG Hemoglobin ABG Oxyhemoglobin ABG Sodium ABG Potassium ABG Chloride ABG Glucose Oxyhemoglobin Sodium Potassium Chloride Carbon Dioxide BUN Creatinine Glucose POC Glucose 155 H 146 H Lactic Acid Calcium Phosphorus Magnesium Total Bilirubin AST ALT Alkaline Phosphatase Total Protein Albumin Triglycerides Arterial Blood Glucose Arterial Blood Ionized Calcium Digoxin Crossmatch 12/30/20 12/30/20 12/31/20 17:53 23:45 03:56 WBC RBC Hgb Hct MCV MCHC RDW Plt Count Lymph % (Auto) [place] % (Auto) Eos % (Auto) Lymph # (Auto) [place] # (Auto) Eos # (Auto) Seg Neutrophils % Seg Neuts % (Manual) Lymphocytes % (Manual) Monocytes % (Manual) Seg Neutrophils # Seg Neutrophils # Man Lymphocytes # (Manual) Monocytes # (Manual) PT INR ABG pH POC ABG pCO2 POC ABG pO2 49.4 L ABG pO2 ABG HCO3 ABG O2 Saturation ABG Base Excess ABG Hemoglobin 10.3 L ABG Oxyhemoglobin 84.2 L ABG Sodium 133.1 L ABG Potassium ABG Chloride ABG Glucose 173 H Oxyhemoglobin Sodium Potassium Chloride Carbon Dioxide BUN Creatinine Glucose POC Glucose 139 H 173 H Lactic Acid Calcium Phosphorus Magnesium Total Bilirubin AST ALT Alkaline Phosphatase Total Protein Albumin Triglycerides Arterial Blood Glucose 173 H Arterial Blood Ionized Calcium Digoxin Crossmatch 12/31/20 12/31/20 12/31/20 05:07 06:51 06:51 WBC 20.3 H RBC 3.32 L Hgb 9.8 L Hct 30.3 L D MCV MCHC RDW 17.3 H Plt Count Lymph % (Auto) [place] % (Auto) Eos % (Auto) Lymph # (Auto) [place] # (Auto) Eos # (Auto) Seg Neutrophils % Seg Neuts % (Manual) 87.0 H Lymphocytes % (Manual) 10.0 L Monocytes % (Manual) Seg Neutrophils # Seg Neutrophils # Man 17.7 H Lymphocytes # (Manual) Monocytes # (Manual) PT INR ABG pH POC ABG pCO2 POC ABG pO2 ABG pO2 ABG HCO3 ABG O2 Saturation ABG Base Excess ABG Hemoglobin ABG Oxyhemoglobin ABG Sodium ABG Potassium ABG Chloride ABG Glucose Oxyhemoglobin Sodium Potassium 5.2 H D Chloride Carbon Dioxide BUN 62 H Creatinine 8.4 H Glucose 116 H POC Glucose 120 H Lactic Acid Calcium Phosphorus Magnesium 1.60 L Total Bilirubin AST ALT Alkaline Phosphatase Total Protein Albumin Triglycerides Arterial Blood Glucose Arterial Blood Ionized Calcium Digoxin Crossmatch 12/31/20 12/31/20 12/31/20 09:38 12:19 12:22 WBC RBC Hgb Hct MCV MCHC RDW Plt Count Lymph % (Auto) [place] % (Auto) Eos % (Auto) Lymph # (Auto) [place] # (Auto) Eos # (Auto) Seg Neutrophils % Seg Neuts % (Manual) Lymphocytes % (Manual) Monocytes % (Manual) Seg Neutrophils # Seg Neutrophils # Man Lymphocytes # (Manual) Monocytes # (Manual) PT INR ABG pH POC ABG pCO2 POC ABG pO2 ABG pO2 354.0 H ABG HCO3 ABG O2 Saturation 99.6 H ABG Base Excess ABG Hemoglobin 9.1 L ABG Oxyhemoglobin ABG Sodium ABG Potassium ABG Chloride ABG Glucose Oxyhemoglobin Sodium Potassium 5.2 H Chloride Carbon Dioxide BUN Creatinine Glucose POC Glucose 132 H Lactic Acid Calcium Phosphorus Magnesium Total Bilirubin AST ALT Alkaline Phosphatase Total Protein Albumin Triglycerides Arterial Blood Glucose Arterial Blood Ionized Calcium Digoxin Crossmatch 12/31/20 01/01/21 01/01/21 23:23 03:03 05:04 WBC RBC Hgb Hct MCV MCHC RDW Plt Count Lymph % (Auto) [place] % (Auto) Eos % (Auto) Lymph # (Auto) [place] # (Auto) Eos # (Auto) Seg Neutrophils % Seg Neuts % (Manual) Lymphocytes % (Manual) Monocytes % (Manual) Seg Neutrophils # Seg Neutrophils # Man Lymphocytes # (Manual) Monocytes # (Manual) PT INR ABG pH POC ABG pCO2 POC ABG pO2 79.6 L ABG pO2 ABG HCO3 ABG O2 Saturation ABG Base Excess ABG Hemoglobin 9.2 L ABG Oxyhemoglobin ABG Sodium 131.6 L ABG Potassium 5.8 H ABG Chloride ABG Glucose 177 H Oxyhemoglobin Sodium Potassium Chloride Carbon Dioxide BUN Creatinine Glucose POC Glucose 174 H 167 H Lactic Acid Calcium Phosphorus Magnesium Total Bilirubin AST ALT Alkaline Phosphatase Total Protein Albumin Triglycerides Arterial Blood Glucose 177 H Arterial Blood Ionized Calcium Digoxin Crossmatch 01/01/21 01/01/21 01/01/21 07:31 07:31 11:31 WBC 26.1 H RBC 2.95 L Hgb 8.6 L Hct 27.1 L MCV MCHC RDW 18.2 H Plt Count Lymph % (Auto) [place] % (Auto) Eos % (Auto) Lymph # (Auto) [place] # (Auto) Eos # (Auto) Seg Neutrophils % Seg Neuts % (Manual) 96.0 H Lymphocytes % (Manual) 4.0 L Monocytes % (Manual) Seg Neutrophils # Seg Neutrophils # Man 25.1 H Lymphocytes # (Manual) 1.0 L Monocytes # (Manual) PT INR ABG pH POC ABG pCO2 POC ABG pO2 ABG pO2 ABG HCO3 ABG O2 Saturation ABG Base Excess ABG Hemoglobin ABG Oxyhemoglobin ABG Sodium ABG Potassium ABG Chloride ABG Glucose Oxyhemoglobin Sodium Potassium 6.0 H Chloride Carbon Dioxide 21 L BUN 89 H Creatinine 10.5 H Glucose 179 H POC Glucose Lactic Acid Calcium Phosphorus Magnesium Total Bilirubin AST ALT Alkaline Phosphatase Total Protein Albumin Triglycerides Arterial Blood Glucose Arterial Blood Ionized Calcium Digoxin Crossmatch See Detail 01/01/21 01/01/21 01/01/21 11:51 12:45 16:52 WBC RBC Hgb Hct MCV MCHC RDW Plt Count Lymph % (Auto) [place] % (Auto) Eos % (Auto) Lymph # (Auto) [place] # (Auto) Eos # (Auto) Seg Neutrophils % Seg Neuts % (Manual) Lymphocytes % (Manual) Monocytes % (Manual) Seg Neutrophils # Seg Neutrophils # Man Lymphocytes # (Manual) Monocytes # (Manual) PT 16.9 H INR 1.39 H ABG pH POC ABG pCO2 POC ABG pO2 ABG pO2 ABG HCO3 ABG O2 Saturation ABG Base Excess ABG Hemoglobin ABG Oxyhemoglobin ABG Sodium ABG Potassium ABG Chloride ABG Glucose Oxyhemoglobin Sodium Potassium Chloride Carbon Dioxide BUN Creatinine Glucose POC Glucose 157 H 177 H Lactic Acid Calcium Phosphorus Magnesium Total Bilirubin AST ALT Alkaline Phosphatase Total Protein Albumin Triglycerides Arterial Blood Glucose Arterial Blood Ionized Calcium Digoxin Crossmatch 01/01/21 01/01/21 01/01/21 17:58 17:58 20:12 WBC 26.9 H RBC 3.14 L Hgb 9.3 L Hct 29.6 L MCV MCHC RDW 17.5 H Plt Count Lymph % (Auto) [place] % (Auto) Eos % (Auto) Lymph # (Auto) [place] # (Auto) Eos # (Auto) Seg Neutrophils % Seg Neuts % (Manual) 84.0 H Lymphocytes % (Manual) 4.0 L Monocytes % (Manual) 12.0 H Seg Neutrophils # Seg Neutrophils # Man 22.6 H Lymphocytes # (Manual) 1.1 L Monocytes # (Manual) 3.2 H PT INR ABG pH POC ABG pCO2 POC ABG pO2 ABG pO2 ABG HCO3 ABG O2 Saturation ABG Base Excess ABG Hemoglobin ABG Oxyhemoglobin ABG Sodium ABG Potassium ABG Chloride ABG Glucose Oxyhemoglobin Sodium 136 L Potassium 6.2 H* Chloride Carbon Dioxide 21 L BUN 92 H Creatinine 10.8 H Glucose 171 H POC Glucose 288 H Lactic Acid Calcium Phosphorus Magnesium Total Bilirubin 2.10 H AST 223 H ALT 100 H Alkaline Phosphatase 206 H Total Protein 4.8 L Albumin 1.9 L Triglycerides Arterial Blood Glucose Arterial Blood Ionized Calcium Digoxin Crossmatch 01/02/21 01/02/21 01/02/21 00:12 00:45 03:05 WBC RBC Hgb Hct MCV MCHC RDW Plt Count Lymph % (Auto) [place] % (Auto) Eos % (Auto) Lymph # (Auto) [place] # (Auto) Eos # (Auto) Seg Neutrophils % Seg Neuts % (Manual) Lymphocytes % (Manual) Monocytes % (Manual) Seg Neutrophils # Seg Neutrophils # Man Lymphocytes # (Manual) Monocytes # (Manual) PT INR ABG pH POC ABG pCO2 POC ABG pO2 81.8 L ABG pO2 ABG HCO3 ABG O2 Saturation ABG Base Excess ABG Hemoglobin 8.0 L ABG Oxyhemoglobin ABG Sodium 129.8 L ABG Potassium 5.4 H ABG Chloride ABG Glucose 257 H Oxyhemoglobin Sodium 136 L Potassium 5.8 H Chloride 96.6 L Carbon Dioxide BUN 95 H Creatinine 11.2 H Glucose 238 H POC Glucose 223 H Lactic Acid Calcium Phosphorus Magnesium Total Bilirubin AST ALT Alkaline Phosphatase Total Protein Albumin Triglycerides Arterial Blood Glucose 257 H Arterial Blood Ionized Calcium 4.0 L Digoxin Crossmatch 01/02/21 01/02/21 01/02/21 06:25 08:00 08:00 WBC 17.5 H RBC 2.31 L Hgb 6.7 L Hct 22.1 L D MCV 96 H MCHC 30 L RDW 18.4 H Plt Count Lymph % (Auto) [place] % (Auto) Eos % (Auto) Lymph # (Auto) [place] # (Auto) Eos # (Auto) Seg Neutrophils % Seg Neuts % (Manual) Lymphocytes % (Manual) Monocytes % (Manual) Seg Neutrophils # Seg Neutrophils # Man Lymphocytes # (Manual) Monocytes # (Manual) PT INR ABG pH POC ABG pCO2 POC ABG pO2 ABG pO2 ABG HCO3 ABG O2 Saturation ABG Base Excess ABG Hemoglobin ABG Oxyhemoglobin ABG Sodium ABG Potassium ABG Chloride ABG Glucose Oxyhemoglobin Sodium 134 L Potassium 5.3 H Chloride 92.9 L Carbon Dioxide BUN 101 H Creatinine 10.9 H Glucose 560 H* POC Glucose 239 H Lactic Acid Calcium 7.6 L Phosphorus 6.50 H Magnesium Total Bilirubin AST ALT Alkaline Phosphatase Total Protein Albumin Triglycerides Arterial Blood Glucose Arterial Blood Ionized Calcium Digoxin Crossmatch 01/02/21 01/02/21 01/02/21 11:26 15:00 17:57 WBC RBC Hgb Hct MCV MCHC RDW Plt Count Lymph % (Auto) [place] % (Auto) Eos % (Auto) Lymph # (Auto) [place] # (Auto) Eos # (Auto) Seg Neutrophils % Seg Neuts % (Manual) Lymphocytes % (Manual) Monocytes % (Manual) Seg Neutrophils # Seg Neutrophils # Man Lymphocytes # (Manual) Monocytes # (Manual) PT INR ABG pH POC ABG pCO2 POC ABG pO2 ABG pO2 ABG HCO3 ABG O2 Saturation ABG Base Excess ABG Hemoglobin ABG Oxyhemoglobin ABG Sodium ABG Potassium ABG Chloride ABG Glucose Oxyhemoglobin Sodium Potassium Chloride Carbon Dioxide BUN Creatinine Glucose 241 H POC Glucose 205 H 272 H Lactic Acid Calcium Phosphorus Magnesium Total Bilirubin AST ALT Alkaline Phosphatase Total Protein Albumin Triglycerides Arterial Blood Glucose Arterial Blood Ionized Calcium Digoxin Crossmatch 01/02/21 01/02/21 01/03/21 23:25 23:43 03:45 WBC RBC Hgb Hct MCV MCHC RDW Plt Count Lymph % (Auto) [place] % (Auto) Eos % (Auto) Lymph # (Auto) [place] # (Auto) Eos # (Auto) Seg Neutrophils % Seg Neuts % (Manual) Lymphocytes % (Manual) Monocytes % (Manual) Seg Neutrophils # Seg Neutrophils # Man Lymphocytes # (Manual) Monocytes # (Manual) PT INR ABG pH POC ABG pCO2 48.3 H POC ABG pO2 134.4 H 79.7 L ABG pO2 ABG HCO3 ABG O2 Saturation ABG Base Excess ABG Hemoglobin 7.7 L 8.6 L ABG Oxyhemoglobin ABG Sodium 131.8 L 130.4 L ABG Potassium ABG Chloride 97.0 L ABG Glucose 218 H 238 H Oxyhemoglobin Sodium Potassium Chloride Carbon Dioxide BUN Creatinine Glucose POC Glucose 218 H Lactic Acid Calcium Phosphorus Magnesium Total Bilirubin AST ALT Alkaline Phosphatase Total Protein Albumin Triglycerides Arterial Blood Glucose 218 H 238 H Arterial Blood Ionized Calcium 4.1 L 4.0 L Digoxin Crossmatch 01/03/21 01/03/21 01/03/21 04:37 04:37 05:39 WBC 15.2 H RBC 2.38 L Hgb 7.3 L Hct 21.6 L MCV MCHC RDW 16.6 H Plt Count Lymph % (Auto) [place] % (Auto) Eos % (Auto) Lymph # (Auto) [place] # (Auto) Eos # (Auto) Seg Neutrophils % Seg Neuts % (Manual) Lymphocytes % (Manual) Monocytes % (Manual) Seg Neutrophils # Seg Neutrophils # Man Lymphocytes # (Manual) Monocytes # (Manual) PT INR ABG pH POC ABG pCO2 POC ABG pO2 ABG pO2 ABG HCO3 ABG O2 Saturation ABG Base Excess ABG Hemoglobin ABG Oxyhemoglobin ABG Sodium ABG Potassium ABG Chloride ABG Glucose Oxyhemoglobin Sodium 136 L Potassium Chloride 94.5 L Carbon Dioxide BUN 69 H Creatinine 8.0 H Glucose 219 H POC Glucose 222 H Lactic Acid Calcium 7.8 L Phosphorus 4.80 H D Magnesium Total Bilirubin AST ALT Alkaline Phosphatase Total Protein Albumin Triglycerides Arterial Blood Glucose Arterial Blood Ionized Calcium Digoxin Crossmatch 01/03/21 01/03/21 01/03/21 11:29 18:49 23:37 WBC RBC Hgb Hct MCV MCHC RDW Plt Count Lymph % (Auto) [place] % (Auto) Eos % (Auto) Lymph # (Auto) [place] # (Auto) Eos # (Auto) Seg Neutrophils % Seg Neuts % (Manual) Lymphocytes % (Manual) Monocytes % (Manual) Seg Neutrophils # Seg Neutrophils # Man Lymphocytes # (Manual) Monocytes # (Manual) PT INR ABG pH POC ABG pCO2 POC ABG pO2 ABG pO2 ABG HCO3 ABG O2 Saturation ABG Base Excess ABG Hemoglobin ABG Oxyhemoglobin ABG Sodium ABG Potassium ABG Chloride ABG Glucose Oxyhemoglobin Sodium Potassium Chloride Carbon Dioxide BUN Creatinine Glucose POC Glucose 232 H 129 H 140 H Lactic Acid Calcium Phosphorus Magnesium Total Bilirubin AST ALT Alkaline Phosphatase Total Protein Albumin Triglycerides Arterial Blood Glucose Arterial Blood Ionized Calcium Digoxin Crossmatch 01/04/21 01/04/21 01/04/21 03:22 04:38 04:38 WBC 11.1 H RBC 2.89 L Hgb 8.9 L Hct 26.2 L MCV MCHC RDW 16.1 H Plt Count Lymph % (Auto) [place] % (Auto) Eos % (Auto) Lymph # (Auto) [place] # (Auto) Eos # (Auto) Seg Neutrophils % Seg Neuts % (Manual) Lymphocytes % (Manual) Monocytes % (Manual) Seg Neutrophils # Seg Neutrophils # Man Lymphocytes # (Manual) Monocytes # (Manual) PT INR ABG pH POC ABG pCO2 POC ABG pO2 82.3 L ABG pO2 ABG HCO3 ABG O2 Saturation ABG Base Excess ABG Hemoglobin 8.9 L ABG Oxyhemoglobin ABG Sodium 130.5 L ABG Potassium ABG Chloride ABG Glucose 124 H Oxyhemoglobin Sodium Potassium Chloride 95.5 L Carbon Dioxide BUN 87 H Creatinine 9.7 H Glucose 118 H POC Glucose Lactic Acid Calcium 7.7 L Phosphorus Magnesium Total Bilirubin AST ALT Alkaline Phosphatase Total Protein Albumin Triglycerides Arterial Blood Glucose 124 H Arterial Blood Ionized Calcium 3.5 L Digoxin Crossmatch 01/04/21 01/04/21 01/04/21 05:39 12:04 18:04 WBC RBC Hgb Hct MCV MCHC RDW Plt Count Lymph % (Auto) [place] % (Auto) Eos % (Auto) Lymph # (Auto) [place] # (Auto) Eos # (Auto) Seg Neutrophils % Seg Neuts % (Manual) Lymphocytes % (Manual) Monocytes % (Manual) Seg Neutrophils # Seg Neutrophils # Man Lymphocytes # (Manual) Monocytes # (Manual) PT INR ABG pH POC ABG pCO2 POC ABG pO2 ABG pO2 ABG HCO3 ABG O2 Saturation ABG Base Excess ABG Hemoglobin ABG Oxyhemoglobin ABG Sodium ABG Potassium ABG Chloride ABG Glucose Oxyhemoglobin Sodium Potassium Chloride Carbon Dioxide BUN Creatinine Glucose POC Glucose 134 H 125 H 131 H Lactic Acid Calcium Phosphorus Magnesium Total Bilirubin AST ALT Alkaline Phosphatase Total Protein Albumin Triglycerides Arterial Blood Glucose Arterial Blood Ionized Calcium Digoxin Crossmatch 01/04/21 01/05/21 01/05/21 23:41 03:23 04:49 WBC RBC Hgb Hct MCV MCHC RDW Plt Count Lymph % (Auto) [place] % (Auto) Eos % (Auto) Lymph # (Auto) [place] # (Auto) Eos # (Auto) Seg Neutrophils % Seg Neuts % (Manual) Lymphocytes % (Manual) Monocytes % (Manual) Seg Neutrophils # Seg Neutrophils # Man Lymphocytes # (Manual) Monocytes # (Manual) PT INR ABG pH POC ABG pCO2 POC ABG pO2 62.8 L ABG pO2 ABG HCO3 ABG O2 Saturation ABG Base Excess ABG Hemoglobin 9.5 L ABG Oxyhemoglobin 92.0 L ABG Sodium 130.1 L ABG Potassium ABG Chloride ABG Glucose 148 H Oxyhemoglobin Sodium Potassium Chloride 96.9 L Carbon Dioxide BUN 57 H Creatinine 6.7 H Glucose 135 H POC Glucose 132 H Lactic Acid Calcium 8.0 L Phosphorus Magnesium Total Bilirubin AST ALT Alkaline Phosphatase Total Protein Albumin Triglycerides Arterial Blood Glucose 148 H Arterial Blood Ionized Calcium 4.1 L Digoxin Crossmatch 01/05/21 01/05/21 01/05/21 05:04 11:48 12:39 WBC RBC 3.03 L Hgb 9.3 L Hct 27.6 L MCV MCHC RDW 16.5 H Plt Count Lymph % (Auto) [place] % (Auto) Eos % (Auto) Lymph # (Auto) [place] # (Auto) Eos # (Auto) Seg Neutrophils % Seg Neuts % (Manual) Lymphocytes % (Manual) Monocytes % (Manual) Seg Neutrophils # Seg Neutrophils # Man Lymphocytes # (Manual) Monocytes # (Manual) PT INR ABG pH POC ABG pCO2 POC ABG pO2 ABG pO2 ABG HCO3 ABG O2 Saturation ABG Base Excess ABG Hemoglobin ABG Oxyhemoglobin ABG Sodium ABG Potassium ABG Chloride ABG Glucose Oxyhemoglobin Sodium Potassium Chloride Carbon Dioxide BUN Creatinine Glucose POC Glucose 147 H 162 H Lactic Acid Calcium Phosphorus Magnesium Total Bilirubin AST ALT Alkaline Phosphatase Total Protein Albumin Triglycerides Arterial Blood Glucose Arterial Blood Ionized Calcium Digoxin Crossmatch 01/05/21 01/05/21 01/06/21 17:50 23:32 04:15 WBC RBC Hgb Hct MCV MCHC RDW Plt Count Lymph % (Auto) [place] % (Auto) Eos % (Auto) Lymph # (Auto) [place] # (Auto) Eos # (Auto) Seg Neutrophils % Seg Neuts % (Manual) Lymphocytes % (Manual) Monocytes % (Manual) Seg Neutrophils # Seg Neutrophils # Man Lymphocytes # (Manual) Monocytes # (Manual) PT INR ABG pH POC ABG pCO2 POC ABG pO2 ABG pO2 191.0 H ABG HCO3 ABG O2 Saturation 99.2 H ABG Base Excess ABG Hemoglobin 9.0 L ABG Oxyhemoglobin ABG Sodium ABG Potassium ABG Chloride ABG Glucose Oxyhemoglobin Sodium Potassium Chloride Carbon Dioxide BUN Creatinine Glucose POC Glucose 155 H 115 H Lactic Acid Calcium Phosphorus Magnesium Total Bilirubin AST ALT Alkaline Phosphatase Total Protein Albumin Triglycerides Arterial Blood Glucose Arterial Blood Ionized Calcium Digoxin Crossmatch 01/06/21 01/06/21 01/06/21 04:45 05:56 07:03 WBC RBC 2.95 L Hgb 9.1 L Hct 26.8 L MCV MCHC RDW 16.8 H Plt Count Lymph % (Auto) [place] % (Auto) Eos % (Auto) Lymph # (Auto) [place] # (Auto) Eos # (Auto) Seg Neutrophils % Seg Neuts % (Manual) Lymphocytes % (Manual) Monocytes % (Manual) Seg Neutrophils # Seg Neutrophils # Man Lymphocytes # (Manual) Monocytes # (Manual) PT INR ABG pH POC ABG pCO2 POC ABG pO2 ABG pO2 ABG HCO3 ABG O2 Saturation ABG Base Excess ABG Hemoglobin ABG Oxyhemoglobin ABG Sodium ABG Potassium ABG Chloride ABG Glucose Oxyhemoglobin Sodium 135 L Potassium Chloride 95.9 L Carbon Dioxide BUN 82 H Creatinine 8.7 H Glucose 127 H POC Glucose 136 H Lactic Acid Calcium 8.3 L Phosphorus Magnesium Total Bilirubin AST ALT Alkaline Phosphatase Total Protein Albumin Triglycerides Arterial Blood Glucose Arterial Blood Ionized Calcium Digoxin Crossmatch 01/06/21 01/06/21 01/06/21 07:10 11:04 13:38 WBC RBC Hgb Hct MCV MCHC RDW Plt Count Lymph % (Auto) [place] % (Auto) Eos % (Auto) Lymph # (Auto) [place] # (Auto) Eos # (Auto) Seg Neutrophils % Seg Neuts % (Manual) Lymphocytes % (Manual) Monocytes % (Manual) Seg Neutrophils # Seg Neutrophils # Man Lymphocytes # (Manual) Monocytes # (Manual) PT INR ABG pH POC ABG pCO2 POC ABG pO2 ABG pO2 ABG HCO3 ABG O2 Saturation ABG Base Excess ABG Hemoglobin ABG Oxyhemoglobin ABG Sodium ABG Potassium ABG Chloride ABG Glucose Oxyhemoglobin Sodium Potassium Chloride Carbon Dioxide BUN Creatinine Glucose POC Glucose 178 H 155 H Lactic Acid Calcium Phosphorus Magnesium Total Bilirubin AST ALT Alkaline Phosphatase Total Protein Albumin Triglycerides Arterial Blood Glucose Arterial Blood Ionized Calcium Digoxin Crossmatch See Detail 01/06/21 01/06/21 01/07/21 17:35 22:21 03:07 WBC RBC Hgb Hct MCV MCHC RDW Plt Count Lymph % (Auto) [place] % (Auto) Eos % (Auto) Lymph # (Auto) [place] # (Auto) Eos # (Auto) Seg Neutrophils % Seg Neuts % (Manual) Lymphocytes % (Manual) Monocytes % (Manual) Seg Neutrophils # Seg Neutrophils # Man Lymphocytes # (Manual) Monocytes # (Manual) PT INR ABG pH POC ABG pCO2 POC ABG pO2 ABG pO2 ABG HCO3 ABG O2 Saturation ABG Base Excess ABG Hemoglobin 11.9 L ABG Oxyhemoglobin ABG Sodium 135.6 L ABG Potassium ABG Chloride ABG Glucose 181 H Oxyhemoglobin Sodium Potassium Chloride Carbon Dioxide BUN Creatinine Glucose POC Glucose 138 H 202 H Lactic Acid Calcium Phosphorus Magnesium Total Bilirubin AST ALT Alkaline Phosphatase Total Protein Albumin Triglycerides Arterial Blood Glucose 181 H Arterial Blood Ionized Calcium 4.3 L Digoxin Crossmatch 01/07/21 01/07/21 01/07/21 04:50 05:21 08:37 WBC 12.4 H RBC Hgb 11.1 L Hct 33.3 L D MCV MCHC RDW 17.0 H Plt Count Lymph % (Auto) 3.2 L [place] % (Auto) 9.4 H Eos % (Auto) Lymph # (Auto) 0.4 L [place] # (Auto) 1.2 H Eos # (Auto) Seg Neutrophils % 86.6 H Seg Neuts % (Manual) Lymphocytes % (Manual) Monocytes % (Manual) Seg Neutrophils # 10.7 H Seg Neutrophils # Man Lymphocytes # (Manual) Monocytes # (Manual) PT INR ABG pH POC ABG pCO2 POC ABG pO2 ABG pO2 ABG HCO3 ABG O2 Saturation ABG Base Excess ABG Hemoglobin ABG Oxyhemoglobin ABG Sodium ABG Potassium ABG Chloride ABG Glucose Oxyhemoglobin Sodium Potassium Chloride Carbon Dioxide BUN 60 H Creatinine 6.3 H Glucose 154 H POC Glucose 177 H Lactic Acid Calcium 8.3 L Phosphorus Magnesium Total Bilirubin AST ALT Alkaline Phosphatase Total Protein Albumin Triglycerides Arterial Blood Glucose Arterial Blood Ionized Calcium Digoxin Crossmatch 01/07/21 01/07/21 01/07/21 11:21 12:19 17:11 WBC RBC Hgb Hct MCV MCHC RDW Plt Count Lymph % (Auto) [place] % (Auto) Eos % (Auto) Lymph # (Auto) [place] # (Auto) Eos # (Auto) Seg Neutrophils % Seg Neuts % (Manual) Lymphocytes % (Manual) Monocytes % (Manual) Seg Neutrophils # Seg Neutrophils # Man Lymphocytes # (Manual) Monocytes # (Manual) PT INR ABG pH POC ABG pCO2 POC ABG pO2 ABG pO2 ABG HCO3 ABG O2 Saturation ABG Base Excess ABG Hemoglobin ABG Oxyhemoglobin ABG Sodium ABG Potassium ABG Chloride ABG Glucose Oxyhemoglobin Sodium Potassium Chloride Carbon Dioxide BUN Creatinine Glucose POC Glucose 144 H 137 H 119 H Lactic Acid Calcium Phosphorus Magnesium Total Bilirubin AST ALT Alkaline Phosphatase Total Protein Albumin Triglycerides Arterial Blood Glucose Arterial Blood Ionized Calcium Digoxin Crossmatch 01/07/21 01/07/21 01/08/21 17:14 23:39 04:34 WBC RBC Hgb Hct MCV MCHC RDW Plt Count Lymph % (Auto) [place] % (Auto) Eos % (Auto) Lymph # (Auto) [place] # (Auto) Eos # (Auto) Seg Neutrophils % Seg Neuts % (Manual) Lymphocytes % (Manual) Monocytes % (Manual) Seg Neutrophils # Seg Neutrophils # Man Lymphocytes # (Manual) Monocytes # (Manual) PT INR ABG pH 7.345 L POC ABG pCO2 POC ABG pO2 ABG pO2 67.4 L ABG HCO3 ABG O2 Saturation 94.3 L ABG Base Excess -3.9 L ABG Hemoglobin 8.9 L ABG Oxyhemoglobin ABG Sodium ABG Potassium ABG Chloride ABG Glucose Oxyhemoglobin 92.3 L Sodium Potassium Chloride Carbon Dioxide 20 L BUN 93 H Creatinine 8.8 H Glucose 120 H POC Glucose 129 H Lactic Acid Calcium Phosphorus Magnesium Total Bilirubin AST ALT Alkaline Phosphatase 133 H Total Protein 5.4 L Albumin 1.9 L Triglycerides Arterial Blood Glucose Arterial Blood Ionized Calcium Digoxin Crossmatch 01/08/21 01/08/21 01/08/21 05:26 11:38 17:19 WBC RBC Hgb Hct MCV MCHC RDW Plt Count Lymph % (Auto) [place] % (Auto) Eos % (Auto) Lymph # (Auto) [place] # (Auto) Eos # (Auto) Seg Neutrophils % Seg Neuts % (Manual) Lymphocytes % (Manual) Monocytes % (Manual) Seg Neutrophils # Seg Neutrophils # Man Lymphocytes # (Manual) Monocytes # (Manual) PT INR ABG pH POC ABG pCO2 POC ABG pO2 ABG pO2 ABG HCO3 ABG O2 Saturation ABG Base Excess ABG Hemoglobin ABG Oxyhemoglobin ABG Sodium ABG Potassium ABG Chloride ABG Glucose Oxyhemoglobin Sodium Potassium Chloride Carbon Dioxide BUN Creatinine Glucose POC Glucose 125 H 146 H 136 H Lactic Acid Calcium Phosphorus Magnesium Total Bilirubin AST ALT Alkaline Phosphatase Total Protein Albumin Triglycerides Arterial Blood Glucose Arterial Blood Ionized Calcium Digoxin Crossmatch 01/08/21 01/09/21 01/09/21 23:52 05:13 05:21 WBC RBC Hgb Hct MCV MCHC RDW Plt Count Lymph % (Auto) [place] % (Auto) Eos % (Auto) Lymph # (Auto) [place] # (Auto) Eos # (Auto) Seg Neutrophils % Seg Neuts % (Manual) Lymphocytes % (Manual) Monocytes % (Manual) Seg Neutrophils # Seg Neutrophils # Man Lymphocytes # (Manual) Monocytes # (Manual) PT INR ABG pH POC ABG pCO2 POC ABG pO2 ABG pO2 ABG HCO3 ABG O2 Saturation ABG Base Excess ABG Hemoglobin ABG Oxyhemoglobin ABG Sodium ABG Potassium ABG Chloride ABG Glucose Oxyhemoglobin Sodium Potassium Chloride Carbon Dioxide 16 L BUN 123 H Creatinine 10.8 H Glucose 145 H POC Glucose 143 H 144 H Lactic Acid Calcium Phosphorus 5.00 H D Magnesium 2.40 H Total Bilirubin AST ALT Alkaline Phosphatase Total Protein Albumin Triglycerides Arterial Blood Glucose Arterial Blood Ionized Calcium Digoxin Crossmatch 01/09/21 01/09/21 01/09/21 12:08 17:20 23:56 WBC RBC Hgb Hct MCV MCHC RDW Plt Count Lymph % (Auto) [place] % (Auto) Eos % (Auto) Lymph # (Auto) [place] # (Auto) Eos # (Auto) Seg Neutrophils % Seg Neuts % (Manual) Lymphocytes % (Manual) Monocytes % (Manual) Seg Neutrophils # Seg Neutrophils # Man Lymphocytes # (Manual) Monocytes # (Manual) PT INR ABG pH POC ABG pCO2 POC ABG pO2 ABG pO2 ABG HCO3 ABG O2 Saturation ABG Base Excess ABG Hemoglobin ABG Oxyhemoglobin ABG Sodium ABG Potassium ABG Chloride ABG Glucose Oxyhemoglobin Sodium Potassium Chloride Carbon Dioxide BUN Creatinine Glucose POC Glucose 153 H 160 H 158 H Lactic Acid Calcium Phosphorus Magnesium Total Bilirubin AST ALT Alkaline Phosphatase Total Protein Albumin Triglycerides Arterial Blood Glucose Arterial Blood Ionized Calcium Digoxin Crossmatch 01/10/21 01/10/21 01/10/21 04:52 05:44 07:41 WBC RBC Hgb Hct MCV MCHC RDW Plt Count Lymph % (Auto) [place] % (Auto) Eos % (Auto) Lymph # (Auto) [place] # (Auto) Eos # (Auto) Seg Neutrophils % Seg Neuts % (Manual) Lymphocytes % (Manual) Monocytes % (Manual) Seg Neutrophils # Seg Neutrophils # Man Lymphocytes # (Manual) Monocytes # (Manual) PT INR ABG pH POC ABG pCO2 POC ABG pO2 ABG pO2 ABG HCO3 ABG O2 Saturation ABG Base Excess ABG Hemoglobin ABG Oxyhemoglobin ABG Sodium ABG Potassium ABG Chloride ABG Glucose Oxyhemoglobin Sodium 135 L Potassium 3.5 L D Chloride 95.0 L Carbon Dioxide 21 L BUN 93 H Creatinine 8.3 H Glucose 127 H POC Glucose 135 H 157 H Lactic Acid Calcium Phosphorus Magnesium Total Bilirubin AST ALT Alkaline Phosphatase Total Protein Albumin Triglycerides Arterial Blood Glucose Arterial Blood Ionized Calcium Digoxin Crossmatch 01/10/21 01/10/21 01/10/21 09:26 12:03 17:44 WBC 18.2 H RBC 3.14 L Hgb 9.7 L Hct 28.2 L MCV MCHC RDW 16.5 H Plt Count Lymph % (Auto) [place] % (Auto) Eos % (Auto) Lymph # (Auto) [place] # (Auto) Eos # (Auto) Seg Neutrophils % Seg Neuts % (Manual) 95.0 H Lymphocytes % (Manual) 3.0 L Monocytes % (Manual) Seg Neutrophils # Seg Neutrophils # Man 17.3 H Lymphocytes # (Manual) 0.5 L Monocytes # (Manual) PT INR ABG pH POC ABG pCO2 POC ABG pO2 ABG pO2 ABG HCO3 ABG O2 Saturation ABG Base Excess ABG Hemoglobin ABG Oxyhemoglobin ABG Sodium ABG Potassium ABG Chloride ABG Glucose Oxyhemoglobin Sodium Potassium Chloride Carbon Dioxide BUN Creatinine Glucose POC Glucose 163 H 171 H Lactic Acid Calcium Phosphorus Magnesium Total Bilirubin AST ALT Alkaline Phosphatase Total Protein Albumin Triglycerides Arterial Blood Glucose Arterial Blood Ionized Calcium Digoxin Crossmatch 01/10/21 01/11/21 01/11/21 23:50 05:18 05:18 WBC RBC Hgb Hct MCV MCHC RDW Plt Count Lymph % (Auto) [place] % (Auto) Eos % (Auto) Lymph # (Auto) [place] # (Auto) Eos # (Auto) Seg Neutrophils % Seg Neuts % (Manual) Lymphocytes % (Manual) Monocytes % (Manual) Seg Neutrophils # Seg Neutrophils # Man Lymphocytes # (Manual) Monocytes # (Manual) PT INR ABG pH POC ABG pCO2 POC ABG pO2 ABG pO2 ABG HCO3 ABG O2 Saturation ABG Base Excess ABG Hemoglobin ABG Oxyhemoglobin ABG Sodium ABG Potassium ABG Chloride ABG Glucose Oxyhemoglobin Sodium 136 L Potassium Chloride 94.6 L Carbon Dioxide 19 L BUN 145 H Creatinine 10.6 H Glucose 152 H POC Glucose 151 H Lactic Acid Calcium Phosphorus 6.00 H D Magnesium Total Bilirubin AST ALT Alkaline Phosphatase Total Protein Albumin Triglycerides Arterial Blood Glucose Arterial Blood Ionized Calcium Digoxin 0.8 L Crossmatch 01/11/21 01/11/21 01/11/21 05:18 05:19 11:28 WBC 17.4 H RBC 3.34 L Hgb 10.2 L Hct 29.7 L MCV MCHC RDW 15.9 H Plt Count Lymph % (Auto) [place] % (Auto) Eos % (Auto) Lymph # (Auto) [place] # (Auto) Eos # (Auto) Seg Neutrophils % Seg Neuts % (Manual) Lymphocytes % (Manual) Monocytes % (Manual) Seg Neutrophils # Seg Neutrophils # Man Lymphocytes # (Manual) Monocytes # (Manual) PT INR ABG pH POC ABG pCO2 POC ABG pO2 ABG pO2 ABG HCO3 ABG O2 Saturation ABG Base Excess ABG Hemoglobin ABG Oxyhemoglobin ABG Sodium ABG Potassium ABG Chloride ABG Glucose Oxyhemoglobin Sodium Potassium Chloride Carbon Dioxide BUN Creatinine Glucose POC Glucose 149 H 178 H Lactic Acid Calcium Phosphorus Magnesium Total Bilirubin AST ALT Alkaline Phosphatase Total Protein Albumin Triglycerides Arterial Blood Glucose Arterial Blood Ionized Calcium Digoxin Crossmatch 01/11/21 01/11/21 01/12/21 17:31 23:14 05:18 WBC RBC Hgb Hct MCV MCHC RDW Plt Count Lymph % (Auto) [place] % (Auto) Eos % (Auto) Lymph # (Auto) [place] # (Auto) Eos # (Auto) Seg Neutrophils % Seg Neuts % (Manual) Lymphocytes % (Manual) Monocytes % (Manual) Seg Neutrophils # Seg Neutrophils # Man Lymphocytes # (Manual) Monocytes # (Manual) PT INR ABG pH POC ABG pCO2 POC ABG pO2 ABG pO2 ABG HCO3 ABG O2 Saturation ABG Base Excess ABG Hemoglobin ABG Oxyhemoglobin ABG Sodium ABG Potassium ABG Chloride ABG Glucose Oxyhemoglobin Sodium Potassium Chloride Carbon Dioxide BUN Creatinine Glucose POC Glucose 158 H 145 H 148 H Lactic Acid Calcium Phosphorus Magnesium Total Bilirubin AST ALT Alkaline Phosphatase Total Protein Albumin Triglycerides Arterial Blood Glucose Arterial Blood Ionized Calcium Digoxin Crossmatch 01/12/21 01/12/21 01/12/21 06:50 10:45 13:34 WBC RBC Hgb Hct MCV MCHC RDW Plt Count Lymph % (Auto) [place] % (Auto) Eos % (Auto) Lymph # (Auto) [place] # (Auto) Eos # (Auto) Seg Neutrophils % Seg Neuts % (Manual) Lymphocytes % (Manual) Monocytes % (Manual) Seg Neutrophils # Seg Neutrophils # Man Lymphocytes # (Manual) Monocytes # (Manual) PT INR ABG pH POC ABG pCO2 POC ABG pO2 ABG pO2 ABG HCO3 ABG O2 Saturation ABG Base Excess ABG Hemoglobin ABG Oxyhemoglobin ABG Sodium ABG Potassium ABG Chloride ABG Glucose Oxyhemoglobin Sodium Potassium 2.9 L* D Chloride 94.8 L Carbon Dioxide BUN 102 H Creatinine 8.3 H Glucose 139 H POC Glucose 151 H 134 H Lactic Acid Calcium 8.1 L Phosphorus 5.00 H Magnesium Total Bilirubin AST ALT Alkaline Phosphatase Total Protein Albumin Triglycerides Arterial Blood Glucose Arterial Blood Ionized Calcium Digoxin Crossmatch 01/12/21 01/12/21 01/13/21 16:59 23:06 03:45 WBC RBC Hgb Hct MCV MCHC RDW Plt Count Lymph % (Auto) [place] % (Auto) Eos % (Auto) Lymph # (Auto) [place] # (Auto) Eos # (Auto) Seg Neutrophils % Seg Neuts % (Manual) Lymphocytes % (Manual) Monocytes % (Manual) Seg Neutrophils # Seg Neutrophils # Man Lymphocytes # (Manual) Monocytes # (Manual) PT INR ABG pH POC ABG pCO2 POC ABG pO2 ABG pO2 ABG HCO3 ABG O2 Saturation ABG Base Excess ABG Hemoglobin ABG Oxyhemoglobin ABG Sodium ABG Potassium ABG Chloride ABG Glucose Oxyhemoglobin Sodium 136 L Potassium 3.4 L Chloride 92.6 L Carbon Dioxide BUN 134 H Creatinine 10.4 H Glucose 126 H POC Glucose 108 H 135 H Lactic Acid Calcium 8.3 L Phosphorus 5.60 H Magnesium 1.50 L Total Bilirubin AST ALT Alkaline Phosphatase Total Protein Albumin Triglycerides Arterial Blood Glucose Arterial Blood Ionized Calcium Digoxin Crossmatch 01/13/21 01/13/21 01/13/21 03:45 05:55 11:59 WBC 17.6 H RBC 3.33 L Hgb 10.2 L Hct 29.5 L MCV MCHC 35 H RDW 15.5 H Plt Count Lymph % (Auto) 4.4 L [place] % (Auto) 10.3 H Eos % (Auto) Lymph # (Auto) 0.8 L [place] # (Auto) 1.8 H Eos # (Auto) Seg Neutrophils % 84.2 H Seg Neuts % (Manual) Lymphocytes % (Manual) Monocytes % (Manual) Seg Neutrophils # 14.8 H Seg Neutrophils # Man Lymphocytes # (Manual) Monocytes # (Manual) PT INR ABG pH POC ABG pCO2 POC ABG pO2 ABG pO2 ABG HCO3 ABG O2 Saturation ABG Base Excess ABG Hemoglobin ABG Oxyhemoglobin ABG Sodium ABG Potassium ABG Chloride ABG Glucose Oxyhemoglobin Sodium Potassium Chloride Carbon Dioxide BUN Creatinine Glucose POC Glucose 134 H 141 H Lactic Acid Calcium Phosphorus Magnesium Total Bilirubin AST ALT Alkaline Phosphatase Total Protein Albumin Triglycerides Arterial Blood Glucose Arterial Blood Ionized Calcium Digoxin Crossmatch 01/13/21 01/14/21 01/14/21 23:09 05:39 05:57 WBC RBC Hgb Hct MCV MCHC RDW Plt Count Lymph % (Auto) [place] % (Auto) Eos % (Auto) Lymph # (Auto) [place] # (Auto) Eos # (Auto) Seg Neutrophils % Seg Neuts % (Manual) Lymphocytes % (Manual) Monocytes % (Manual) Seg Neutrophils # Seg Neutrophils # Man Lymphocytes # (Manual) Monocytes # (Manual) PT INR ABG pH POC ABG pCO2 POC ABG pO2 ABG pO2 ABG HCO3 ABG O2 Saturation ABG Base Excess ABG Hemoglobin ABG Oxyhemoglobin ABG Sodium ABG Potassium ABG Chloride ABG Glucose Oxyhemoglobin Sodium Potassium Chloride 97.6 L Carbon Dioxide BUN 81 H Creatinine 7.6 H Glucose 193 H POC Glucose 106 H 190 H Lactic Acid Calcium 8.2 L Phosphorus 4.60 H Magnesium Total Bilirubin AST ALT Alkaline Phosphatase Total Protein Albumin Triglycerides Arterial Blood Glucose Arterial Blood Ionized Calcium Digoxin Crossmatch 01/14/21 01/14/21 01/14/21 10:00 16:56 16:59 WBC 17.0 H RBC 3.10 L Hgb 9.6 L Hct 27.4 L MCV MCHC 35 H RDW 15.6 H Plt Count Lymph % (Auto) [place] % (Auto) Eos % (Auto) Lymph # (Auto) [place] # (Auto) Eos # (Auto) Seg Neutrophils % Seg Neuts % (Manual) Lymphocytes % (Manual) Monocytes % (Manual) Seg Neutrophils # Seg Neutrophils # Man Lymphocytes # (Manual) Monocytes # (Manual) PT INR ABG pH POC ABG pCO2 POC ABG pO2 ABG pO2 ABG HCO3 ABG O2 Saturation ABG Base Excess ABG Hemoglobin ABG Oxyhemoglobin ABG Sodium ABG Potassium ABG Chloride ABG Glucose Oxyhemoglobin Sodium Potassium Chloride Carbon Dioxide BUN Creatinine Glucose POC Glucose 37 L 34 L Lactic Acid Calcium Phosphorus Magnesium Total Bilirubin AST ALT Alkaline Phosphatase Total Protein Albumin Triglycerides Arterial Blood Glucose Arterial Blood Ionized Calcium Digoxin Crossmatch 01/14/21 01/14/21 01/14/21 17:02 18:34 23:17 WBC RBC Hgb Hct MCV MCHC RDW Plt Count Lymph % (Auto) [place] % (Auto) Eos % (Auto) Lymph # (Auto) [place] # (Auto) Eos # (Auto) Seg Neutrophils % Seg Neuts % (Manual) Lymphocytes % (Manual) Monocytes % (Manual) Seg Neutrophils # Seg Neutrophils # Man Lymphocytes # (Manual) Monocytes # (Manual) PT INR ABG pH POC ABG pCO2 POC ABG pO2 ABG pO2 ABG HCO3 ABG O2 Saturation ABG Base Excess ABG Hemoglobin ABG Oxyhemoglobin ABG Sodium ABG Potassium ABG Chloride ABG Glucose Oxyhemoglobin Sodium Potassium Chloride Carbon Dioxide BUN Creatinine Glucose POC Glucose 35 L 143 H 53 L Lactic Acid Calcium Phosphorus Magnesium Total Bilirubin AST ALT Alkaline Phosphatase Total Protein Albumin Triglycerides Arterial Blood Glucose Arterial Blood Ionized Calcium Digoxin Crossmatch 01/15/21 01/15/21 01/15/21 00:34 04:00 04:00 WBC 15.9 H RBC 3.02 L Hgb 9.3 L Hct 27.3 L MCV MCHC RDW 15.6 H Plt Count Lymph % (Auto) [place] % (Auto) Eos % (Auto) Lymph # (Auto) [place] # (Auto) Eos # (Auto) Seg Neutrophils % Seg Neuts % (Manual) Lymphocytes % (Manual) Monocytes % (Manual) Seg Neutrophils # Seg Neutrophils # Man Lymphocytes # (Manual) Monocytes # (Manual) PT INR ABG pH POC ABG pCO2 POC ABG pO2 ABG pO2 ABG HCO3 ABG O2 Saturation ABG Base Excess ABG Hemoglobin ABG Oxyhemoglobin ABG Sodium ABG Potassium ABG Chloride ABG Glucose Oxyhemoglobin Sodium 136 L Potassium Chloride 94.3 L Carbon Dioxide BUN 117 H Creatinine 9.9 H Glucose 217 H POC Glucose 181 H Lactic Acid Calcium 8.3 L Phosphorus Magnesium Total Bilirubin AST ALT Alkaline Phosphatase Total Protein Albumin Triglycerides Arterial Blood Glucose Arterial Blood Ionized Calcium Digoxin Crossmatch 01/15/21 01/15/21 01/15/21 05:29 11:51 23:13 WBC RBC Hgb Hct MCV MCHC RDW Plt Count Lymph % (Auto) [place] % (Auto) Eos % (Auto) Lymph # (Auto) [place] # (Auto) Eos # (Auto) Seg Neutrophils % Seg Neuts % (Manual) Lymphocytes % (Manual) Monocytes % (Manual) Seg Neutrophils # Seg Neutrophils # Man Lymphocytes # (Manual) Monocytes # (Manual) PT INR ABG pH POC ABG pCO2 POC ABG pO2 ABG pO2 ABG HCO3 ABG O2 Saturation ABG Base Excess ABG Hemoglobin ABG Oxyhemoglobin ABG Sodium ABG Potassium ABG Chloride ABG Glucose Oxyhemoglobin Sodium Potassium Chloride Carbon Dioxide BUN Creatinine Glucose POC Glucose 221 H 62 L 154 H Lactic Acid Calcium Phosphorus Magnesium Total Bilirubin AST ALT Alkaline Phosphatase Total Protein Albumin Triglycerides Arterial Blood Glucose Arterial Blood Ionized Calcium Digoxin Crossmatch 01/16/21 01/16/21 01/16/21 05:04 06:44 06:44 WBC 14.8 H RBC 2.76 L Hgb 8.2 L Hct 24.8 L MCV MCHC RDW 15.6 H Plt Count Lymph % (Auto) [place] % (Auto) Eos % (Auto) Lymph # (Auto) [place] # (Auto) Eos # (Auto) Seg Neutrophils % Seg Neuts % (Manual) Lymphocytes % (Manual) Monocytes % (Manual) Seg Neutrophils # Seg Neutrophils # Man Lymphocytes # (Manual) Monocytes # (Manual) PT INR ABG pH POC ABG pCO2 POC ABG pO2 ABG pO2 ABG HCO3 ABG O2 Saturation ABG Base Excess ABG Hemoglobin ABG Oxyhemoglobin ABG Sodium ABG Potassium ABG Chloride ABG Glucose Oxyhemoglobin Sodium 133 L Potassium Chloride 92.3 L Carbon Dioxide 20 L BUN 160 H Creatinine 12.1 H Glucose 177 H POC Glucose 168 H Lactic Acid Calcium 8.1 L Phosphorus 5.50 H Magnesium 2.50 H Total Bilirubin AST ALT Alkaline Phosphatase Total Protein Albumin Triglycerides Arterial Blood Glucose Arterial Blood Ionized Calcium Digoxin Crossmatch 01/16/21 01/17/21 01/17/21 23:20 05:14 05:14 WBC 12.7 H RBC 2.75 L Hgb 8.5 L Hct 24.6 L MCV MCHC 35 H RDW 15.4 H Plt Count Lymph % (Auto) [place] % (Auto) Eos % (Auto) Lymph # (Auto) [place] # (Auto) Eos # (Auto) Seg Neutrophils % Seg Neuts % (Manual) Lymphocytes % (Manual) Monocytes % (Manual) Seg Neutrophils # Seg Neutrophils # Man Lymphocytes # (Manual) Monocytes # (Manual) PT INR ABG pH POC ABG pCO2 POC ABG pO2 ABG pO2 ABG HCO3 ABG O2 Saturation ABG Base Excess ABG Hemoglobin ABG Oxyhemoglobin ABG Sodium ABG Potassium ABG Chloride ABG Glucose Oxyhemoglobin Sodium Potassium Chloride 97.9 L Carbon Dioxide BUN 84 H Creatinine 7.8 H Glucose 176 H POC Glucose 153 H Lactic Acid Calcium 8.0 L Phosphorus Magnesium Total Bilirubin AST ALT Alkaline Phosphatase Total Protein Albumin Triglycerides Arterial Blood Glucose Arterial Blood Ionized Calcium Digoxin Crossmatch 01/17/21 01/17/21 01/18/21 05:33 11:58 00:07 WBC RBC Hgb Hct MCV MCHC RDW Plt Count Lymph % (Auto) [place] % (Auto) Eos % (Auto) Lymph # (Auto) [place] # (Auto) Eos # (Auto) Seg Neutrophils % Seg Neuts % (Manual) Lymphocytes % (Manual) Monocytes % (Manual) Seg Neutrophils # Seg Neutrophils # Man Lymphocytes # (Manual) Monocytes # (Manual) PT INR ABG pH POC ABG pCO2 POC ABG pO2 ABG pO2 ABG HCO3 ABG O2 Saturation ABG Base Excess ABG Hemoglobin ABG Oxyhemoglobin ABG Sodium ABG Potassium ABG Chloride ABG Glucose Oxyhemoglobin Sodium Potassium Chloride Carbon Dioxide BUN Creatinine Glucose POC Glucose 162 H 64 L 146 H Lactic Acid Calcium Phosphorus Magnesium Total Bilirubin AST ALT Alkaline Phosphatase Total Protein Albumin Triglycerides Arterial Blood Glucose Arterial Blood Ionized Calcium Digoxin Crossmatch 01/18/21 01/18/21 01/18/21 04:19 04:19 06:15 WBC 15.6 H RBC 3.00 L Hgb 9.2 L Hct 26.8 L MCV MCHC 35 H RDW 15.6 H Plt Count Lymph % (Auto) [place] % (Auto) Eos % (Auto) Lymph # (Auto) [place] # (Auto) Eos # (Auto) Seg Neutrophils % Seg Neuts % (Manual) Lymphocytes % (Manual) Monocytes % (Manual) Seg Neutrophils # Seg Neutrophils # Man Lymphocytes # (Manual) Monocytes # (Manual) PT INR ABG pH POC ABG pCO2 POC ABG pO2 ABG pO2 ABG HCO3 ABG O2 Saturation ABG Base Excess ABG Hemoglobin ABG Oxyhemoglobin ABG Sodium ABG Potassium ABG Chloride ABG Glucose Oxyhemoglobin Sodium Potassium Chloride 96.2 L Carbon Dioxide BUN 117 H Creatinine 10.0 H Glucose 165 H POC Glucose 189 H Lactic Acid Calcium Phosphorus 4.70 H D Magnesium Total Bilirubin AST ALT Alkaline Phosphatase Total Protein Albumin Triglycerides Arterial Blood Glucose Arterial Blood Ionized Calcium Digoxin Crossmatch 01/18/21 01/18/21 01/18/21 11:53 13:44 15:08 WBC RBC Hgb Hct MCV MCHC RDW Plt Count Lymph % (Auto) [place] % (Auto) Eos % (Auto) Lymph # (Auto) [place] # (Auto) Eos # (Auto) Seg Neutrophils % Seg Neuts % (Manual) Lymphocytes % (Manual) Monocytes % (Manual) Seg Neutrophils # Seg Neutrophils # Man Lymphocytes # (Manual) Monocytes # (Manual) PT INR ABG pH POC ABG pCO2 POC ABG pO2 ABG pO2 ABG HCO3 ABG O2 Saturation ABG Base Excess ABG Hemoglobin ABG Oxyhemoglobin ABG Sodium ABG Potassium ABG Chloride ABG Glucose Oxyhemoglobin Sodium Potassium Chloride Carbon Dioxide BUN Creatinine Glucose POC Glucose 69 L 50 L 56 L Lactic Acid Calcium Phosphorus Magnesium Total Bilirubin AST ALT Alkaline Phosphatase Total Protein Albumin Triglycerides Arterial Blood Glucose Arterial Blood Ionized Calcium Digoxin Crossmatch 01/18/21 01/19/21 01/19/21 17:50 04:55 08:56 WBC 12.7 H RBC 2.89 L Hgb 8.7 L Hct 25.6 L MCV MCHC RDW 15.5 H Plt Count Lymph % (Auto) [place] % (Auto) Eos % (Auto) Lymph # (Auto) [place] # (Auto) Eos # (Auto) Seg Neutrophils % Seg Neuts % (Manual) Lymphocytes % (Manual) Monocytes % (Manual) Seg Neutrophils # Seg Neutrophils # Man Lymphocytes # (Manual) Monocytes # (Manual) PT INR ABG pH POC ABG pCO2 POC ABG pO2 ABG pO2 ABG HCO3 ABG O2 Saturation ABG Base Excess ABG Hemoglobin ABG Oxyhemoglobin ABG Sodium ABG Potassium ABG Chloride ABG Glucose Oxyhemoglobin Sodium Potassium Chloride Carbon Dioxide BUN Creatinine Glucose POC Glucose 137 H 120 H Lactic Acid Calcium Phosphorus Magnesium Total Bilirubin AST ALT Alkaline Phosphatase Total Protein Albumin Triglycerides Arterial Blood Glucose Arterial Blood Ionized Calcium Digoxin Crossmatch 01/19/21 01/19/21 01/19/21 08:56 11:33 17:32 WBC RBC Hgb Hct MCV MCHC RDW Plt Count Lymph % (Auto) [place] % (Auto) Eos % (Auto) Lymph # (Auto) [place] # (Auto) Eos # (Auto) Seg Neutrophils % Seg Neuts % (Manual) Lymphocytes % (Manual) Monocytes % (Manual) Seg Neutrophils # Seg Neutrophils # Man Lymphocytes # (Manual) Monocytes # (Manual) PT INR ABG pH POC ABG pCO2 POC ABG pO2 ABG pO2 ABG HCO3 ABG O2 Saturation ABG Base Excess ABG Hemoglobin ABG Oxyhemoglobin ABG Sodium ABG Potassium ABG Chloride ABG Glucose Oxyhemoglobin Sodium Potassium Chloride Carbon Dioxide BUN 66 H Creatinine 7.7 H Glucose 119 H POC Glucose 160 H 125 H Lactic Acid Calcium 8.3 L Phosphorus Magnesium Total Bilirubin AST ALT Alkaline Phosphatase Total Protein Albumin Triglycerides Arterial Blood Glucose Arterial Blood Ionized Calcium Digoxin Crossmatch 01/19/21 01/20/21 01/20/21 23:30 03:35 03:35 WBC 12.0 H RBC 2.62 L Hgb 8.3 L Hct 23.2 L MCV MCHC 36 H RDW Plt Count Lymph % (Auto) [place] % (Auto) Eos % (Auto) Lymph # (Auto) [place] # (Auto) Eos # (Auto) Seg Neutrophils % Seg Neuts % (Manual) Lymphocytes % (Manual) Monocytes % (Manual) Seg Neutrophils # Seg Neutrophils # Man Lymphocytes # (Manual) Monocytes # (Manual) PT INR ABG pH POC ABG pCO2 POC ABG pO2 ABG pO2 ABG HCO3 ABG O2 Saturation ABG Base Excess ABG Hemoglobin ABG Oxyhemoglobin ABG Sodium ABG Potassium ABG Chloride ABG Glucose Oxyhemoglobin Sodium Potassium Chloride Carbon Dioxide BUN 46 H Creatinine 5.9 H Glucose 128 H POC Glucose 127 H Lactic Acid Calcium Phosphorus Magnesium Total Bilirubin AST ALT Alkaline Phosphatase Total Protein Albumin Triglycerides Arterial Blood Glucose Arterial Blood Ionized Calcium Digoxin Crossmatch 01/20/21 01/20/21 01/20/21 06:19 11:55 18:00 WBC RBC Hgb Hct MCV MCHC RDW Plt Count Lymph % (Auto) [place] % (Auto) Eos % (Auto) Lymph # (Auto) [place] # (Auto) Eos # (Auto) Seg Neutrophils % Seg Neuts % (Manual) Lymphocytes % (Manual) Monocytes % (Manual) Seg Neutrophils # Seg Neutrophils # Man Lymphocytes # (Manual) Monocytes # (Manual) PT INR ABG pH POC ABG pCO2 POC ABG pO2 ABG pO2 ABG HCO3 ABG O2 Saturation ABG Base Excess ABG Hemoglobin ABG Oxyhemoglobin ABG Sodium ABG Potassium ABG Chloride ABG Glucose Oxyhemoglobin Sodium Potassium Chloride Carbon Dioxide BUN Creatinine Glucose POC Glucose 119 H 128 H 115 H Lactic Acid Calcium Phosphorus Magnesium Total Bilirubin AST ALT Alkaline Phosphatase Total Protein Albumin Triglycerides Arterial Blood Glucose Arterial Blood Ionized Calcium Digoxin Crossmatch 01/20/21 01/21/21 01/21/21 23:26 04:39 05:27 WBC RBC Hgb Hct MCV MCHC RDW Plt Count Lymph % (Auto) [place] % (Auto) Eos % (Auto) Lymph # (Auto) [place] # (Auto) Eos # (Auto) Seg Neutrophils % Seg Neuts % (Manual) Lymphocytes % (Manual) Monocytes % (Manual) Seg Neutrophils # Seg Neutrophils # Man Lymphocytes # (Manual) Monocytes # (Manual) PT INR ABG pH POC ABG pCO2 POC ABG pO2 ABG pO2 ABG HCO3 ABG O2 Saturation ABG Base Excess ABG Hemoglobin ABG Oxyhemoglobin ABG Sodium ABG Potassium ABG Chloride ABG Glucose Oxyhemoglobin Sodium Potassium Chloride Carbon Dioxide BUN 37 H Creatinine 5.3 H Glucose 109 H POC Glucose 108 H 107 H Lactic Acid Calcium Phosphorus 2.10 L Magnesium 1.50 L Total Bilirubin AST ALT Alkaline Phosphatase 143 H Total Protein 6.1 L Albumin 3.0 L Triglycerides Arterial Blood Glucose Arterial Blood Ionized Calcium Digoxin Crossmatch 01/21/21 01/21/21 01/22/21 11:35 17:53 00:20 WBC RBC Hgb Hct MCV MCHC RDW Plt Count Lymph % (Auto) [place] % (Auto) Eos % (Auto) Lymph # (Auto) [place] # (Auto) Eos # (Auto) Seg Neutrophils % Seg Neuts % (Manual) Lymphocytes % (Manual) Monocytes % (Manual) Seg Neutrophils # Seg Neutrophils # Man Lymphocytes # (Manual) Monocytes # (Manual) PT INR ABG pH POC ABG pCO2 POC ABG pO2 ABG pO2 ABG HCO3 ABG O2 Saturation ABG Base Excess ABG Hemoglobin ABG Oxyhemoglobin ABG Sodium ABG Potassium ABG Chloride ABG Glucose Oxyhemoglobin Sodium Potassium Chloride Carbon Dioxide BUN Creatinine Glucose POC Glucose 133 H 124 H 122 H Lactic Acid Calcium Phosphorus Magnesium Total Bilirubin AST ALT Alkaline Phosphatase Total Protein Albumin Triglycerides Arterial Blood Glucose Arterial Blood Ionized Calcium Digoxin Crossmatch 01/22/21 01/22/21 01/22/21 04:00 06:09 11:36 WBC RBC Hgb Hct MCV MCHC RDW Plt Count Lymph % (Auto) [place] % (Auto) Eos % (Auto) Lymph # (Auto) [place] # (Auto) Eos # (Auto) Seg Neutrophils % Seg Neuts % (Manual) Lymphocytes % (Manual) Monocytes % (Manual) Seg Neutrophils # Seg Neutrophils # Man Lymphocytes # (Manual) Monocytes # (Manual) PT INR ABG pH POC ABG pCO2 POC ABG pO2 ABG pO2 ABG HCO3 ABG O2 Saturation ABG Base Excess ABG Hemoglobin ABG Oxyhemoglobin ABG Sodium ABG Potassium ABG Chloride ABG Glucose Oxyhemoglobin Sodium Potassium Chloride Carbon Dioxide BUN 65 H Creatinine 8.2 H D Glucose 111 H POC Glucose 122 H 132 H Lactic Acid Calcium Phosphorus Magnesium Total Bilirubin AST ALT Alkaline Phosphatase Total Protein Albumin Triglycerides Arterial Blood Glucose Arterial Blood Ionized Calcium Digoxin Crossmatch 01/22/21 01/22/21 01/23/21 17:17 23:18 05:29 WBC RBC Hgb Hct MCV MCHC RDW Plt Count Lymph % (Auto) [place] % (Auto) Eos % (Auto) Lymph # (Auto) [place] # (Auto) Eos # (Auto) Seg Neutrophils % Seg Neuts % (Manual) Lymphocytes % (Manual) Monocytes % (Manual) Seg Neutrophils # Seg Neutrophils # Man Lymphocytes # (Manual) Monocytes # (Manual) PT INR ABG pH POC ABG pCO2 POC ABG pO2 ABG pO2 ABG HCO3 ABG O2 Saturation ABG Base Excess ABG Hemoglobin ABG Oxyhemoglobin ABG Sodium ABG Potassium ABG Chloride ABG Glucose Oxyhemoglobin Sodium Potassium Chloride Carbon Dioxide BUN Creatinine Glucose POC Glucose 135 H 128 H 129 H Lactic Acid Calcium Phosphorus Magnesium Total Bilirubin AST ALT Alkaline Phosphatase Total Protein Albumin Triglycerides Arterial Blood Glucose Arterial Blood Ionized Calcium Digoxin Crossmatch 01/23/21 01/23/21 01/23/21 05:45 11:28 16:39 WBC RBC Hgb Hct MCV MCHC RDW Plt Count Lymph % (Auto) [place] % (Auto) Eos % (Auto) Lymph # (Auto) [place] # (Auto) Eos # (Auto) Seg Neutrophils % Seg Neuts % (Manual) Lymphocytes % (Manual) Monocytes % (Manual) Seg Neutrophils # Seg Neutrophils # Man Lymphocytes # (Manual) Monocytes # (Manual) PT INR ABG pH POC ABG pCO2 POC ABG pO2 ABG pO2 ABG HCO3 ABG O2 Saturation ABG Base Excess ABG Hemoglobin ABG Oxyhemoglobin ABG Sodium ABG Potassium ABG Chloride ABG Glucose Oxyhemoglobin Sodium Potassium Chloride Carbon Dioxide BUN 96 H Creatinine 10.8 H Glucose 124 H POC Glucose 160 H 116 H Lactic Acid Calcium Phosphorus Magnesium 2.50 H Total Bilirubin AST ALT Alkaline Phosphatase Total Protein Albumin Triglycerides Arterial Blood Glucose Arterial Blood Ionized Calcium Digoxin Crossmatch 01/24/21 01/24/21 01/24/21 00:02 04:45 05:01 WBC RBC Hgb Hct MCV MCHC RDW Plt Count Lymph % (Auto) [place] % (Auto) Eos % (Auto) Lymph # (Auto) [place] # (Auto) Eos # (Auto) Seg Neutrophils % Seg Neuts % (Manual) Lymphocytes % (Manual) Monocytes % (Manual) Seg Neutrophils # Seg Neutrophils # Man Lymphocytes # (Manual) Monocytes # (Manual) PT INR ABG pH POC ABG pCO2 POC ABG pO2 ABG pO2 ABG HCO3 ABG O2 Saturation ABG Base Excess ABG Hemoglobin ABG Oxyhemoglobin ABG Sodium ABG Potassium ABG Chloride ABG Glucose Oxyhemoglobin Sodium Potassium 3.5 L Chloride Carbon Dioxide BUN 56 H Creatinine 7.7 H Glucose 102 H POC Glucose 120 H 108 H Lactic Acid Calcium Phosphorus Magnesium Total Bilirubin AST ALT Alkaline Phosphatase Total Protein Albumin Triglycerides Arterial Blood Glucose Arterial Blood Ionized Calcium Digoxin Crossmatch 01/24/21 01/24/21 01/24/21 12:03 17:07 23:55 WBC RBC Hgb Hct MCV MCHC RDW Plt Count Lymph % (Auto) [place] % (Auto) Eos % (Auto) Lymph # (Auto) [place] # (Auto) Eos # (Auto) Seg Neutrophils % Seg Neuts % (Manual) Lymphocytes % (Manual) Monocytes % (Manual) Seg Neutrophils # Seg Neutrophils # Man Lymphocytes # (Manual) Monocytes # (Manual) PT INR ABG pH POC ABG pCO2 POC ABG pO2 ABG pO2 ABG HCO3 ABG O2 Saturation ABG Base Excess ABG Hemoglobin ABG Oxyhemoglobin ABG Sodium ABG Potassium ABG Chloride ABG Glucose Oxyhemoglobin Sodium Potassium Chloride Carbon Dioxide BUN Creatinine Glucose POC Glucose 136 H 122 H 112 H Lactic Acid Calcium Phosphorus Magnesium Total Bilirubin AST ALT Alkaline Phosphatase Total Protein Albumin Triglycerides Arterial Blood Glucose Arterial Blood Ionized Calcium Digoxin Crossmatch 01/25/21 01/25/21 01/25/21 05:15 06:00 07:47 WBC RBC Hgb Hct MCV MCHC RDW Plt Count Lymph % (Auto) [place] % (Auto) Eos % (Auto) Lymph # (Auto) [place] # (Auto) Eos # (Auto) Seg Neutrophils % Seg Neuts % (Manual) Lymphocytes % (Manual) Monocytes % (Manual) Seg Neutrophils # Seg Neutrophils # Man Lymphocytes # (Manual) Monocytes # (Manual) PT INR ABG pH POC ABG pCO2 POC ABG pO2 ABG pO2 ABG HCO3 ABG O2 Saturation ABG Base Excess ABG Hemoglobin ABG Oxyhemoglobin ABG Sodium ABG Potassium ABG Chloride ABG Glucose Oxyhemoglobin Sodium 116 L* D Potassium Chloride 79.1 L Carbon Dioxide 17 L D BUN 72 H Creatinine 7.4 H Glucose 2242 H* POC Glucose 117 H 138 H Lactic Acid Calcium 6.7 L D Phosphorus Magnesium Total Bilirubin AST ALT Alkaline Phosphatase Total Protein Albumin Triglycerides Arterial Blood Glucose Arterial Blood Ionized Calcium Digoxin Crossmatch 01/25/21 01/25/21 01/25/21 08:35 11:49 18:42 WBC RBC Hgb Hct MCV MCHC RDW Plt Count Lymph % (Auto) [place] % (Auto) Eos % (Auto) Lymph # (Auto) [place] # (Auto) Eos # (Auto) Seg Neutrophils % Seg Neuts % (Manual) Lymphocytes % (Manual) Monocytes % (Manual) Seg Neutrophils # Seg Neutrophils # Man Lymphocytes # (Manual) Monocytes # (Manual) PT INR ABG pH POC ABG pCO2 POC ABG pO2 ABG pO2 ABG HCO3 ABG O2 Saturation ABG Base Excess ABG Hemoglobin ABG Oxyhemoglobin ABG Sodium ABG Potassium ABG Chloride ABG Glucose Oxyhemoglobin Sodium Potassium Chloride 97.0 L Carbon Dioxide BUN 92 H Creatinine 11.0 H Glucose 125 H POC Glucose 130 H 122 H Lactic Acid Calcium Phosphorus Magnesium Total Bilirubin AST ALT Alkaline Phosphatase Total Protein Albumin Triglycerides Arterial Blood Glucose Arterial Blood Ionized Calcium Digoxin Crossmatch 01/25/21 01/26/21 01/26/21 23:37 04:19 05:48 WBC RBC Hgb Hct MCV MCHC RDW Plt Count Lymph % (Auto) [place] % (Auto) Eos % (Auto) Lymph # (Auto) [place] # (Auto) Eos # (Auto) Seg Neutrophils % Seg Neuts % (Manual) Lymphocytes % (Manual) Monocytes % (Manual) Seg Neutrophils # Seg Neutrophils # Man Lymphocytes # (Manual) Monocytes # (Manual) PT INR ABG pH POC ABG pCO2 POC ABG pO2 ABG pO2 ABG HCO3 ABG O2 Saturation ABG Base Excess ABG Hemoglobin ABG Oxyhemoglobin ABG Sodium ABG Potassium ABG Chloride ABG Glucose Oxyhemoglobin Sodium Potassium Chloride Carbon Dioxide BUN 49 H Creatinine 7.1 H Glucose POC Glucose 144 H 125 H Lactic Acid Calcium Phosphorus Magnesium 1.50 L Total Bilirubin AST ALT Alkaline Phosphatase Total Protein Albumin Triglycerides Arterial Blood Glucose Arterial Blood Ionized Calcium Digoxin Crossmatch 01/26/21 01/26/21 01/27/21 11:16 18:35 00:01 WBC RBC Hgb Hct MCV MCHC RDW Plt Count Lymph % (Auto) [place] % (Auto) Eos % (Auto) Lymph # (Auto) [place] # (Auto) Eos # (Auto) Seg Neutrophils % Seg Neuts % (Manual) Lymphocytes % (Manual) Monocytes % (Manual) Seg Neutrophils # Seg Neutrophils # Man Lymphocytes # (Manual) Monocytes # (Manual) PT INR ABG pH POC ABG pCO2 POC ABG pO2 ABG pO2 ABG HCO3 ABG O2 Saturation ABG Base Excess ABG Hemoglobin ABG Oxyhemoglobin ABG Sodium ABG Potassium ABG Chloride ABG Glucose Oxyhemoglobin Sodium Potassium Chloride Carbon Dioxide BUN Creatinine Glucose POC Glucose 122 H 127 H 130 H Lactic Acid Calcium Phosphorus Magnesium Total Bilirubin AST ALT Alkaline Phosphatase Total Protein Albumin Triglycerides Arterial Blood Glucose Arterial Blood Ionized Calcium Digoxin Crossmatch 01/27/21 01/27/21 01/27/21 04:19 04:19 05:25 WBC 12.4 H RBC 2.79 L Hgb 8.6 L Hct 25.1 L MCV MCHC RDW 16.1 H Plt Count Lymph % (Auto) 7.5 L [place] % (Auto) 9.3 H Eos % (Auto) 4.8 H Lymph # (Auto) 0.9 L [place] # (Auto) 1.1 H Eos # (Auto) 0.6 H Seg Neutrophils % 78.0 H Seg Neuts % (Manual) Lymphocytes % (Manual) Monocytes % (Manual) Seg Neutrophils # 9.7 H Seg Neutrophils # Man Lymphocytes # (Manual) Monocytes # (Manual) PT INR ABG pH POC ABG pCO2 POC ABG pO2 ABG pO2 ABG HCO3 ABG O2 Saturation ABG Base Excess ABG Hemoglobin ABG Oxyhemoglobin ABG Sodium ABG Potassium ABG Chloride ABG Glucose Oxyhemoglobin Sodium Potassium Chloride 97.9 L Carbon Dioxide BUN 76 H Creatinine 9.9 H Glucose 111 H POC Glucose 129 H Lactic Acid Calcium Phosphorus Magnesium Total Bilirubin AST ALT Alkaline Phosphatase Total Protein Albumin Triglycerides Arterial Blood Glucose Arterial Blood Ionized Calcium Digoxin Crossmatch 01/27/21 01/27/2121 11:30 17:08 23:28 WBC RBC Hgb Hct MCV MCHC RDW Plt Count Lymph % (Auto) [place] % (Auto) Eos % (Auto) Lymph # (Auto) [place] # (Auto) Eos # (Auto) Seg Neutrophils % Seg Neuts % (Manual) Lymphocytes % (Manual) Monocytes % (Manual) Seg Neutrophils # Seg Neutrophils # Man Lymphocytes # (Manual) Monocytes # (Manual) PT INR ABG pH POC ABG pCO2 POC ABG pO2 ABG pO2 ABG HCO3 ABG O2 Saturation ABG Base Excess ABG Hemoglobin ABG Oxyhemoglobin ABG Sodium ABG Potassium ABG Chloride ABG Glucose Oxyhemoglobin Sodium Potassium Chloride Carbon Dioxide BUN Creatinine Glucose POC Glucose 128 H 158 H 114 H Lactic Acid Calcium Phosphorus Magnesium Total Bilirubin AST ALT Alkaline Phosphatase Total Protein Albumin Triglycerides Arterial Blood Glucose Arterial Blood Ionized Calcium Digoxin Crossmatch 01/28/21 01/28/21 01/28/21 05:17 11:27 18:01 WBC RBC Hgb Hct MCV MCHC RDW Plt Count Lymph % (Auto) [place] % (Auto) Eos % (Auto) Lymph # (Auto) [place] # (Auto) Eos # (Auto) Seg Neutrophils % Seg Neuts % (Manual) Lymphocytes % (Manual) Monocytes % (Manual) Seg Neutrophils # Seg Neutrophils # Man Lymphocytes # (Manual) Monocytes # (Manual) PT INR ABG pH POC ABG pCO2 POC ABG pO2 ABG pO2 ABG HCO3 ABG O2 Saturation ABG Base Excess ABG Hemoglobin ABG Oxyhemoglobin ABG Sodium ABG Potassium ABG Chloride ABG Glucose Oxyhemoglobin Sodium Potassium Chloride Carbon Dioxide BUN Creatinine Glucose POC Glucose 113 H 134 H 111 H Lactic Acid Calcium Phosphorus Magnesium Total Bilirubin AST ALT Alkaline Phosphatase Total Protein Albumin Triglycerides Arterial Blood Glucose Arterial Blood Ionized Calcium Digoxin Crossmatch 01/29/21 01/29/21 01/29/21 04:54 06:45 11:10 WBC RBC Hgb Hct MCV MCHC RDW Plt Count Lymph % (Auto) [place] % (Auto) Eos % (Auto) Lymph # (Auto) [place] # (Auto) Eos # (Auto) Seg Neutrophils % Seg Neuts % (Manual) Lymphocytes % (Manual) Monocytes % (Manual) Seg Neutrophils # Seg Neutrophils # Man Lymphocytes # (Manual) Monocytes # (Manual) PT INR ABG pH POC ABG pCO2 POC ABG pO2 ABG pO2 ABG HCO3 ABG O2 Saturation ABG Base Excess ABG Hemoglobin ABG Oxyhemoglobin ABG Sodium ABG Potassium ABG Chloride ABG Glucose Oxyhemoglobin Sodium Potassium 3.4 L Chloride Carbon Dioxide BUN 51 H Creatinine 6.9 H Glucose 120 H POC Glucose 111 H 106 H Lactic Acid Calcium Phosphorus 2.10 L Magnesium Total Bilirubin AST ALT Alkaline Phosphatase 182 H Total Protein 6.0 L Albumin 2.9 L Triglycerides Arterial Blood Glucose Arterial Blood Ionized Calcium Digoxin Crossmatch 01/29/21 01/30/21 01/30/21 16:47 04:15 06:55 WBC RBC Hgb Hct MCV MCHC RDW Plt Count Lymph % (Auto) [place] % (Auto) Eos % (Auto) Lymph # (Auto) [place] # (Auto) Eos # (Auto) Seg Neutrophils % Seg Neuts % (Manual) Lymphocytes % (Manual) Monocytes % (Manual) Seg Neutrophils # Seg Neutrophils # Man Lymphocytes # (Manual) Monocytes # (Manual) PT INR ABG pH POC ABG pCO2 POC ABG pO2 ABG pO2 ABG HCO3 ABG O2 Saturation ABG Base Excess ABG Hemoglobin ABG Oxyhemoglobin ABG Sodium ABG Potassium ABG Chloride ABG Glucose Oxyhemoglobin Sodium Potassium Chloride Carbon Dioxide BUN 73 H Creatinine 9.2 H Glucose 119 H POC Glucose 110 H 126 H Lactic Acid Calcium Phosphorus 4.70 H D Magnesium Total Bilirubin AST ALT Alkaline Phosphatase Total Protein Albumin Triglycerides Arterial Blood Glucose Arterial Blood Ionized Calcium Digoxin Crossmatch Allied health notes reviewed: nursing
[2021-01-30] MEDS: HEPARIN 5,000 UNIT/1 ML VIAL SUB-Q SCH ×2 (16:49→22:22)
[2021-01-30] MEDS: FAMOTIDINE 20 MG/2 ML INJ IV SCH ×2 (16:50→22:23)
[2021-01-30] MEDS: SCOPOLAMINE TRANSDERMAL PATCH 72 HR TD SCH (18:19)
[2021-01-30] MEDS ORDERED: TOTAL PARENTERAL NUTRITION 2,016 ML IV SCH (20:00)
[2021-01-30] MEDS ORDERED: FAT EMULSIONS 20% 250 ML IV SCH (20:00)
[2021-01-31] MEDS: INSULIN LISPRO 100 UNIT/ML SUB-Q SCH ×4 (01:33→22:21)
[2021-01-31] MEDS: HYDROmorphone 1 MG/1 ML INJ IV PRN ×2 (01:37→21:21)
[2021-01-31] MEDS: METOPROLOL TARTRATE 5 MG/5 ML INJ IV SCH ×6 (01:44→22:29)
[2021-01-31] MEDS: hydrALAZINE 20 MG/1 ML INJ IV SCH ×6 (01:45→22:28)
[2021-01-31] MEDS: INSULIN GLARGINE 100 UNITS/ML SUB-Q SCH ×2 (02:16→23:38)
[2021-01-31] MEDS: ONDANSETRON 4 MG/2 ML INJ IV PRN ×2 (02:19→21:30)
[2021-01-31] MEDS: OCTREOTIDE 100 MCG in SODIUM CHLORIDE 0.9% 100 ML IV SCH ×4 (03:15→23:40)
--- NOTE | 2021-01-31 10:42 | Progress Note ---
<CJ REINA - Last Filed: 01/31/21 10:41> Assessment and Plan Paroxysmal atrial fibrillation currently, he is sinus rhythm on telemetry Patient is not a candidate for anticoagulation due to his postoperative status and the presence of severe anemia. Hx of nonischemic cardiomyopathy, resolving LVEF 50-55% by echo this presentation Small bowl obstruction status post multiple surgeries ESRD now on HD Anemia s/p PRBCs Patient remains on NPO status. Will continue intravenous digoxin, and intravenous metoprolol for paroxysmal atrial fibrillation. Otherwise, conservative cardiac management. Subjective Date of service: 01/31/21 Principal diagnosis: Ac hypoxemic resp failure; Severe Sepsis; Peritonitis; Acute SBO; ESRD; CHF Interval history: Patient is resting in bed and appears comfortable. Patient remains on NPO status. Objective Vital Signs Temp Pulse Resp Resp BP BP Pulse Ox 01/31/21 06:57 73 162/79 01/31/21 06:56 82 176/89 01/31/21 05:13 99 F 71 18 146/89 94 01/31/21 04:00 74 01/31/21 03:44 17 01/31/21 03:35 17 01/31/21 02:07 17 01/31/21 01:45 69 153/74 01/31/21 01:44 71 168/73 01/31/21 01:37 17 01/31/21 01:10 98.9 F 72 18 157/85 98 01/31/21 00:00 72 17 01/30/21 22:30 67 161/80 01/30/21 22:27 67 161/80 01/30/21 19:40 98.8 F 68 18 172/90 94 01/30/21 19:03 17 01/30/21 18:37 72 163/86 01/30/21 18:33 72 163/86 01/30/21 18:27 97.6 F 70 16 163/86 97 01/30/21 18:00 17 01/30/21 14:20 68 F L 68 20 171/89 01/30/21 14:15 68 168/96 01/30/21 14:00 70 160/82 01/30/21 13:45 63 167/91 01/30/21 13:30 92 H 187/100 01/30/21 13:15 68 168/93 01/30/21 13:00 69 170/91 01/30/21 12:45 68 164/80 01/30/21 12:30 72 175/90 01/30/21 12:15 64 174/76 01/30/21 12:00 73 172/87 01/30/21 11:45 72 172/81 01/30/21 11:30 73 165/89 01/30/21 11:15 74 169/86 01/30/21 11:00 76 167/94 01/30/21 10:45 73 171/93 - Physical Examination General: No Apparent Distress HEENT: Positive: PERRL Neck: Positive: neck supple Cardiac: Positive: Reg Rate and Rhythm Neuro: Positive: Grossly Intact Abdomen: Positive: Other (post op) Skin: Positive: Clear Extremities: Absent: edema - Allied health notes Allied health notes reviewed: nursing <COLTON PONCE Last Filed: 01/31/21 17:03> Assessment and Plan - Patient Problems (1) Atrial fibrillation Current Visit: Yes Status: Acute (2) Accelerated hypertension Current Visit: No Status: Acute Subjective Interval history: I SAW THIS PT & AGREE WITH THE Dx & Tx PLAN. Objective Vital Signs Temp Pulse Resp Resp BP BP Pulse Ox 01/31/21 16:31 98.3 F 73 16 163/87 98 01/31/21 15:28 73 162/79 01/31/21 14:02 73 162/79 01/31/21 11:56 73 162/79 01/31/21 11:46 98.6 F 68 16 160/82 100 01/31/21 10:58 73 162/79 01/31/21 06:57 73 162/79 01/31/21 06:56 82 176/89 01/31/21 05:13 99 F 71 18 146/89 94 01/31/21 04:00 74 01/31/21 03:44 17 01/31/21 03:35 17 01/31/21 02:07 17 01/31/21 01:45 69 153/74 01/31/21 01:44 71 168/73 01/31/21 01:37 17 01/31/21 01:10 98.9 F 72 18 157/85 98 01/31/21 00:00 72 17 01/30/21 22:30 67 161/80 01/30/21 22:27 67 161/80 01/30/21 19:40 98.8 F 68 18 172/90 94 01/30/21 19:03 17 01/30/21 18:37 72 163/86 01/30/21 18:33 72 163/86 01/30/21 18:27 97.6 F 70 16 163/86 97 01/30/21 18:00 17
[2021-01-31] MEDS: FAMOTIDINE 20 MG/2 ML INJ IV SCH ×2 (10:58→21:35)
[2021-01-31] MEDS: HEPARIN 5,000 UNIT/1 ML VIAL SUB-Q SCH ×2 (10:58→21:36)
--- NOTE | 2021-01-31 11:02 | Progress Note ---
Assessment and Plan This is a 60 YO Male with ESRD on PD, GERD, Crohn's Disease, Nicotine Dependence, HTN, Systolic CHF(EF 35%) who presented to the emergency department on 12/22 with complaints of abdominal pain which began shortly after eating fast food rated 10/10 which is periumbilical, constant, associated with fever, nausea and multiple sites of vomiting and self-reported inability to undergo PD. In the emergency room patient underwent a CT scan of the abdomen/pelvis which revealed evidence of partial small bowel obstruction, symptoms were consistent with bacterial peritonitis. Patient was admitted to the hospital service with sepsis, peritonitis, and small bowel obstruction with consults to general surgery, nephrology, infectious disease and [facility]. On 01/06/21 the patient underwent an exploratory laparotomy, jejunal colonic anastomosis, and segmental small bowel resection. ABG's (01/07/21): pH 7.345 pH POC ABG pCO2 41.4 mmHg ABG pCO2 40.3 mm Hg POC ABG pO2 94.5 mmHg ABG pO2 67.4 mm Hg POC ABG HCO3 22.7 ABG O2 Saturation 94.3 % Patient alert, awake . Patient is on room air. O2 saturation 98%. No acute res piratory distress. Patient running low grade temp at times.. Has mild leukocytosis. Blood pressure 154/70. Patient is on Clonadine and metoprol. Management as per primary care. Chest x-ray 01/03/21 reported There is decreased inspiration compared to yesterday's exam. Hazy opacity in the right perihilar region and larger area of infiltration in the left lower lung appears stable given differences in the level of inspiration. No large pleural effusion or pneumothorax. Patient presently on s/c heparin, famotidine - Patient Problems (1) Nicotine dependence Current Visit: Yes Status: Acute Qualifiers: Nicotine product type: cigarettes Substance use status: in withdrawal Qualified Code(s): F17.213 - Nicotine dependence, cigarettes, with withdrawal Plan to address problem: Counseled patient to stop smoking. (2) SOB (shortness of breath) Current Visit: No Status: Acute Plan to address problem: Improved. Patient resting on room air at this time. O2 saturation 98%. (3) Atrial fibrillation Current Visit: Yes Status: Acute Plan to address problem: Management as per cardiology. (4) CHF (congestive heart failure) Current Visit: No Status: Acute Qualifiers: Heart failure chronicity: chronic Plan to address problem: Management as per cardiology. (5) Small bowel obstruction Current Visit: Yes Status: Acute Plan to address problem: On 01/06/21 the patient underwent an exploratory laparotomy, jejunal colonic anastomosis, and segmental small bowel resection. Management as per surgery. Continue incentive spirometry (6) Small intestinal gangrene Current Visit: Yes Status: Acute Plan to address problem: On 01/06/21 the patient underwent an exploratory laparotomy, jejunal colonic anastomosis, and segmental small bowel resection. Management as per surgery. Continue incentive spirometry (7) Accelerated hypertension Current Visit: No Status: Acute Plan to address problem: Management as per primary care. (8) Acute on chronic kidney disease, stage 3 Current Visit: No Status: Acute Plan to address problem: Management as per nephrology. Subjective Date of service: 01/31/21 Principal diagnosis: Ac hypoxemic resp failure; Severe Sepsis; Peritonitis; Acute SBO; ESRD; CHF Interval history: This is a 60 YO Male with ESRD on PD, GERD, Crohn's Disease, Nicotine Dependence, HTN, Systolic CHF(EF 35%) who presented to the emergency department on 12/22 with complaints of abdominal pain which began shortly after eating fast food rated 10/10 which is periumbilical, constant, associated with fever, nausea and multiple sites of vomiting and self-reported inability to undergo PD. In the emergency room patient underwent a CT scan of the abdomen/pelvis which revealed evidence of partial small bowel obstruction, symptoms were consistent with bacterial peritonitis. Patient was admitted to the hospital service with sepsis, peritonitis, and small bowel obstruction with consults to general surgery, nephrology, infectious disease and [facility]. On 01/06/21 the patient underwent an exploratory laparotomy, jejunal colonic anastomosis, and segmental small bowel resection. ABG's (01/07/21): pH 7.345 pH POC ABG pCO2 41.4 mmHg ABG pCO2 40.3 mm Hg POC ABG pO2 94.5 mmHg ABG pO2 67.4 mm Hg POC ABG HCO3 22.7 ABG O2 Saturation 94.3 % Patient alert, awake . Patient is on room air. O2 saturation 98%. No acute respiratory distress. Patient running low grade temp at times.. Has mild leukocytosis. Blood pressure 154/70. Patient is on Clonadine and metoprol. Management as per primary care. Chest x-ray 01/03/21 reported There is decreased inspiration compared to yesterday's exam. Hazy opacity in the right perihilar region and larger area of infiltration in the left lower lung appears stable given differences in the level of inspiration. No large pleural effusion or pneumothorax. Patient presently on s/c heparin, famotidine Objective Vital Signs - 12hr 01/31/21 01/31/21 01/31/21 00:00 01:10 01:37 Temperature 98.9 F Pulse Rate 72 72 Respiratory 17 18 17 Rate Respiratory Rate [Anterior Abdomen] Blood Pressure Blood Pressure 157/85 [Right] O2 Sat by Pulse 98 Oximetry 01/31/21 01/31/21 01/31/21 01:44 01:45 02:07 Temperature Pulse Rate 71 69 Respiratory 17 Rate Respiratory Rate [Anterior Abdomen] Blood Pressure 168/73 153/74 Blood Pressure [Right] O2 Sat by Pulse Oximetry 01/31/21 01/31/21 01/31/21 03:35 03:44 04:00 Temperature Pulse Rate 74 Respiratory 17 Rate Respiratory 17 Rate [Anterior Abdomen] Blood Pressure Blood Pressure [Right] O2 Sat by Pulse Oximetry 01/31/21 01/31/21 01/31/21 05:13 06:56 06:57 Temperature 99 F Pulse Rate 71 82 73 Respiratory 18 Rate Respiratory Rate [Anterior Abdomen] Blood Pressure 176/89 162/79 Blood Pressure 146/89 [Right] O2 Sat by Pulse 94 Oximetry 01/31/21 10:58 Temperature Pulse Rate 73 Respiratory Rate Respiratory Rate [Anterior Abdomen] Blood Pressure 162/79 Blood Pressure [Right] O2 Sat by Pulse Oximetry Constitutional: no acute distress, alert, other (elderly male with normal respi ratory effort at rest) Eyes: non-icteric ENT: oropharynx dry, oropharyngeal exudate pre Neck: supple, no lymphadenopathy, no JVD Effort: normal Ascultation: Bilateral: diminished breath sounds, rales, rhonchi Percussion: Bilateral: not dull Cardiovascular: regular rate and rhythm, other (S1,S2) Gastrointestinal: hypoactive bowel sounds, soft, non-tender, non-distended (protuberant), other (Midline abdominal incision; + HARIS drain in place) Integumentary: other (Midline abdominal incision ) Extremities: no cyanosis, no edema, pulses normal, no ischemia or petechiae Neurologic: non-focal exam (grossly), pupils equal and round, CN II-XII normal Psychiatric: mood appropriate, affect normal CBC and BMP: 01/27/21 04:19 01/30/21 04:15 ABG, PT/INR, D-dimer: ABG ABG pH 7.345 pH Units (7.350-7.450) L 01/07/21 17:14 POC ABG pCO2 41.4 mmHg (32.0-48.0) 01/07/21 03:07 ABG pCO2 40.3 mm Hg 01/07/21 17:14 POC ABG pO2 94.5 mmHg (83-108) 01/07/21 03:07 ABG pO2 67.4 mm Hg (80.0-90.0) L 01/07/21 17:14 POC ABG HCO3 22.7 01/07/21 03:07 ABG O2 Saturation 94.3 % (95.0-99.0) L 01/07/21 17:14 PT/INR, D-dimer PT 16.9 Sec. (12.2-14.9) H 01/01/21 12:45 INR 1.39 (0.87-1.13) H 01/01/21 12:45 Abnormal lab findings: Abnormal Labs 12/22/20 12/22/20 12/22/20 14:38 14:38 14:38 WBC RBC Hgb 11.2 L Hct 35.0 L MCV MCHC RDW 16.7 H Plt Count Lymph % (Auto) [place] % (Auto) Eos % (Auto) Lymph # (Auto) [place] # (Auto) Eos # (Auto) Seg Neutrophils % Seg Neuts % (Manual) 94.0 H Lymphocytes % (Manual) 5.0 L Monocytes % (Manual) Seg Neutrophils # Seg Neutrophils # Man Lymphocytes # (Manual) 0.3 L Monocytes # (Manual) PT INR ABG pH POC ABG pCO2 POC ABG pO2 ABG pO2 ABG HCO3 ABG O2 Saturation ABG Base Excess ABG Hemoglobin ABG Oxyhemoglobin ABG Sodium ABG Potassium ABG Chloride ABG Glucose Oxyhemoglobin Sodium Potassium Chloride Carbon Dioxide BUN 58 H Creatinine 13.2 H Glucose 113 H POC Glucose Lactic Acid 3.60 H* Calcium Phosphorus Magnesium Total Bilirubin 1.30 H AST ALT Alkaline Phosphatase 155 H Total Protein Albumin Triglycerides Arterial Blood Glucose Arterial Blood Ionized Calcium Digoxin Crossmatch 12/22/20 12/22/20 12/23/20 16:26 17:47 05:22 WBC RBC Hgb Hct MCV MCHC RDW Plt Count Lymph % (Auto) [place] % (Auto) Eos % (Auto) Lymph # (Auto) [place] # (Auto) Eos # (Auto) Seg Neutrophils % Seg Neuts % (Manual) Lymphocytes % (Manual) Monocytes % (Manual) Seg Neutrophils # Seg Neutrophils # Man Lymphocytes # (Manual) Monocytes # (Manual) PT INR ABG pH POC ABG pCO2 POC ABG pO2 ABG pO2 ABG HCO3 ABG O2 Saturation ABG Base Excess ABG Hemoglobin ABG Oxyhemoglobin ABG Sodium ABG Potassium ABG Chloride ABG Glucose Oxyhemoglobin Sodium Potassium Chloride Carbon Dioxide BUN Creatinine Glucose POC Glucose Lactic Acid 2.80 H* 3.10 H* 2.30 H* Calcium Phosphorus Magnesium Total Bilirubin AST ALT Alkaline Phosphatase Total Protein Albumin Triglycerides Arterial Blood Glucose Arterial Blood Ionized Calcium Digoxin Crossmatch 12/23/20 12/23/20 12/23/20 05:22 05:22 06:35 WBC 12.1 H RBC Hgb 11.0 L Hct 33.7 L MCV MCHC RDW 16.9 H Plt Count Lymph % (Auto) [place] % (Auto) Eos % (Auto) Lymph # (Auto) [place] # (Auto) Eos # (Auto) Seg Neutrophils % Seg Neuts % (Manual) 93.0 H Lymphocytes % (Manual) 1.0 L Monocytes % (Manual) Seg Neutrophils # Seg Neutrophils # Man 11.3 H Lymphocytes # (Manual) 0.1 L Monocytes # (Manual) PT INR ABG pH POC ABG pCO2 POC ABG pO2 ABG pO2 ABG HCO3 ABG O2 Saturation ABG Base Excess ABG Hemoglobin ABG Oxyhemoglobin ABG Sodium ABG Potassium ABG Chloride ABG Glucose Oxyhemoglobin Sodium Potassium 5.7 H D Chloride Carbon Dioxide BUN 73 H Creatinine 14.2 H Glucose POC Glucose Lactic Acid 2.30 H* Calcium 7.9 L Phosphorus Magnesium Total Bilirubin 1.40 H AST 119 H ALT 130 H Alkaline Phosphatase 183 H Total Protein 6.1 L Albumin 3.6 L Triglycerides Arterial Blood Glucose Arterial Blood Ionized Calcium Digoxin Crossmatch 12/23/20 12/23/20 12/23/20 11:40 13:53 16:47 WBC RBC Hgb 10.0 L Hct 30.4 L MCV MCHC RDW Plt Count Lymph % (Auto) [place] % (Auto) Eos % (Auto) Lymph # (Auto) [place] # (Auto) Eos # (Auto) Seg Neutrophils % Seg Neuts % (Manual) Lymphocytes % (Manual) Monocytes % (Manual) Seg Neutrophils # Seg Neutrophils # Man Lymphocytes # (Manual) Monocytes # (Manual) PT INR ABG pH POC ABG pCO2 POC ABG pO2 137.5 H ABG pO2 ABG HCO3 ABG O2 Saturation ABG Base Excess ABG Hemoglobin 9.7 L ABG Oxyhemoglobin ABG Sodium 134.1 L ABG Potassium 6.6 H ABG Chloride ABG Glucose 103 H Oxyhemoglobin Sodium Potassium Chloride Carbon Dioxide BUN Creatinine Glucose POC Glucose Lactic Acid Calcium Phosphorus Magnesium Total Bilirubin AST ALT Alkaline Phosphatase Total Protein Albumin Triglycerides Arterial Blood Glucose 103 H Arterial Blood Ionized Calcium 3.8 L Digoxin Crossmatch See Detail 12/23/20 12/23/20 12/24/20 20:35 20:40 01:20 WBC RBC Hgb Hct MCV MCHC RDW Plt Count Lymph % (Auto) [place] % (Auto) Eos % (Auto) Lymph # (Auto) [place] # (Auto) Eos # (Auto) Seg Neutrophils % Seg Neuts % (Manual) Lymphocytes % (Manual) Monocytes % (Manual) Seg Neutrophils # Seg Neutrophils # Man Lymphocytes # (Manual) Monocytes # (Manual) PT INR ABG pH 7.252 L POC ABG pCO2 POC ABG pO2 ABG pO2 50.1 L ABG HCO3 ABG O2 Saturation 81.1 L ABG Base Excess -5.9 L ABG Hemoglobin 12.1 L ABG Oxyhemoglobin ABG Sodium ABG Potassium ABG Chloride ABG Glucose Oxyhemoglobin 78.6 L Sodium 134 L Potassium 6.9 H* D 6.3 H* Chloride Carbon Dioxide 18 L 20 L BUN 87 H 91 H Creatinine 15.3 H 15.3 H Glucose 103 H POC Glucose Lactic Acid Calcium 6.9 L 7.5 L Phosphorus Magnesium Total Bilirubin AST ALT Alkaline Phosphatase Total Protein Albumin Triglycerides Arterial Blood Glucose Arterial Blood Ionized Calcium Digoxin Crossmatch 12/24/20 12/24/20 12/24/20 04:00 10:29 10:29 WBC RBC 3.49 L Hgb 10.5 L Hct 31.2 L MCV MCHC RDW 17.5 H Plt Count 124 L Lymph % (Auto) 3.7 L [place] % (Auto) 9.8 H Eos % (Auto) Lymph # (Auto) 0.2 L [place] # (Auto) Eos # (Auto) Seg Neutrophils % 85.9 H Seg Neuts % (Manual) Lymphocytes % (Manual) Monocytes % (Manual) Seg Neutrophils # Seg Neutrophils # Man Lymphocytes # (Manual) Monocytes # (Manual) PT INR ABG pH POC ABG pCO2 28.1 L POC ABG pO2 ABG pO2 ABG HCO3 ABG O2 Saturation ABG Base Excess ABG Hemoglobin ABG Oxyhemoglobin ABG Sodium 133.9 L ABG Potassium 5.3 H ABG Chloride 108.0 H ABG Glucose Oxyhemoglobin Sodium Potassium 5.6 H Chloride Carbon Dioxide 19 L BUN 99 H Creatinine 16.9 H Glucose 52 L POC Glucose Lactic Acid Calcium 7.6 L Phosphorus Magnesium Total Bilirubin 3.50 H AST 67 H ALT 71 H Alkaline Phosphatase Total Protein 3.5 L D Albumin 2.1 L Triglycerides Arterial Blood Glucose Arterial Blood Ionized Calcium 4.0 L Digoxin Crossmatch 12/25/20 12/25/20 12/25/20 03:33 04:00 04:00 WBC 3.8 L RBC 2.90 L Hgb 8.6 L Hct 25.7 L MCV MCHC RDW 16.7 H Plt Count 113 L Lymph % (Auto) [place] % (Auto) Eos % (Auto) Lymph # (Auto) [place] # (Auto) Eos # (Auto) Seg Neutrophils % Seg Neuts % (Manual) Lymphocytes % (Manual) Monocytes % (Manual) Seg Neutrophils # Seg Neutrophils # Man Lymphocytes # (Manual) Monocytes # (Manual) PT INR ABG pH 7.544 H POC ABG pCO2 28.2 L POC ABG pO2 62.8 L ABG pO2 ABG HCO3 ABG O2 Saturation ABG Base Excess ABG Hemoglobin 9.3 L ABG Oxyhemoglobin 93.0 L ABG Sodium 130.3 L ABG Potassium ABG Chloride ABG Glucose 97 H Oxyhemoglobin Sodium Potassium Chloride Carbon Dioxide BUN 62 H Creatinine 11.4 H Glucose POC Glucose Lactic Acid Calcium 7.7 L Phosphorus 5.00 H Magnesium Total Bilirubin AST ALT Alkaline Phosphatase Total Protein Albumin Triglycerides Arterial Blood Glucose 97 H Arterial Blood Ionized Calcium 3.9 L Digoxin Crossmatch 12/26/20 12/26/20 12/27/20 04:46 Unknown 03:40 WBC 4.1 L RBC 2.61 L Hgb 7.8 L Hct 23.4 L MCV MCHC RDW 17.1 H Plt Count 119 L Lymph % (Auto) 5.3 L [place] % (Auto) 10.6 H Eos % (Auto) Lymph # (Auto) 0.2 L [place] # (Auto) Eos # (Auto) Seg Neutrophils % 78.8 H Seg Neuts % (Manual) Lymphocytes % (Manual) Monocytes % (Manual) Seg Neutrophils # Seg Neutrophils # Man Lymphocytes # (Manual) Monocytes # (Manual) PT INR ABG pH 7.333 L 7.332 L POC ABG pCO2 POC ABG pO2 ABG pO2 ABG HCO3 26.9 H ABG O2 Saturation ABG Base Excess -2.4 L ABG Hemoglobin 6.8 L 7.2 L ABG Oxyhemoglobin ABG Sodium ABG Potassium ABG Chloride ABG Glucose Oxyhemoglobin 93.0 L 93.1 L Sodium Potassium Chloride Carbon Dioxide BUN Creatinine Glucose POC Glucose Lactic Acid Calcium Phosphorus Magnesium Total Bilirubin AST ALT Alkaline Phosphatase Total Protein Albumin Triglycerides Arterial Blood Glucose Arterial Blood Ionized Calcium Digoxin Crossmatch 12/27/20 12/27/20 12/27/20 06:40 06:40 11:22 WBC 4.4 L RBC 2.49 L Hgb 7.4 L Hct 22.4 L MCV MCHC RDW 17.1 H Plt Count 111 L Lymph % (Auto) 6.7 L [place] % (Auto) 12.6 H Eos % (Auto) Lymph # (Auto) 0.3 L [place] # (Auto) Eos # (Auto) Seg Neutrophils % 77.6 H Seg Neuts % (Manual) Lymphocytes % (Manual) Monocytes % (Manual) Seg Neutrophils # Seg Neutrophils # Man Lymphocytes # (Manual) Monocytes # (Manual) PT INR ABG pH POC ABG pCO2 POC ABG pO2 ABG pO2 ABG HCO3 ABG O2 Saturation ABG Base Excess ABG Hemoglobin ABG Oxyhemoglobin ABG Sodium ABG Potassium ABG Chloride ABG Glucose Oxyhemoglobin Sodium Potassium Chloride Carbon Dioxide BUN 64 H Creatinine 9.8 H Glucose 147 H POC Glucose 134 H Lactic Acid Calcium 8.3 L Phosphorus 5.00 H Magnesium Total Bilirubin 3.70 H AST 72 H ALT Alkaline Phosphatase 142 H Total Protein 5.1 L D Albumin 2.9 L Triglycerides Arterial Blood Glucose Arterial Blood Ionized Calcium Digoxin Crossmatch 12/27/20 12/27/20 12/28/20 17:29 23:31 03:09 WBC RBC Hgb Hct MCV MCHC RDW Plt Count Lymph % (Auto) [place] % (Auto) Eos % (Auto) Lymph # (Auto) [place] # (Auto) Eos # (Auto) Seg Neutrophils % Seg Neuts % (Manual) Lymphocytes % (Manual) Monocytes % (Manual) Seg Neutrophils # Seg Neutrophils # Man Lymphocytes # (Manual) Monocytes # (Manual) PT INR ABG pH 7.474 H POC ABG pCO2 POC ABG pO2 ABG pO2 ABG HCO3 ABG O2 Saturation ABG Base Excess ABG Hemoglobin 7.8 L ABG Oxyhemoglobin ABG Sodium ABG Potassium ABG Chloride ABG Glucose Oxyhemoglobin Sodium Potassium Chloride Carbon Dioxide BUN Creatinine Glucose POC Glucose 121 H 131 H Lactic Acid Calcium Phosphorus Magnesium Total Bilirubin AST ALT Alkaline Phosphatase Total Protein Albumin Triglycerides Arterial Blood Glucose Arterial Blood Ionized Calcium Digoxin Crossmatch 12/28/20 12/28/20 12/28/20 05:37 05:40 05:40 WBC 4.3 L RBC 2.40 L Hgb 7.2 L Hct 21.5 L MCV MCHC RDW 17.4 H Plt Count 112 L Lymph % (Auto) 6.5 L [place] % (Auto) 16.7 H Eos % (Auto) Lymph # (Auto) 0.3 L [place] # (Auto) Eos # (Auto) Seg Neutrophils % 71.1 H Seg Neuts % (Manual) Lymphocytes % (Manual) Monocytes % (Manual) Seg Neutrophils # Seg Neutrophils # Man Lymphocytes # (Manual) Monocytes # (Manual) PT INR ABG pH POC ABG pCO2 POC ABG pO2 ABG pO2 ABG HCO3 ABG O2 Saturation ABG Base Excess ABG Hemoglobin ABG Oxyhemoglobin ABG Sodium ABG Potassium ABG Chloride ABG Glucose Oxyhemoglobin Sodium Potassium Chloride Carbon Dioxide BUN 85 H Creatinine 11.5 H Glucose 132 H POC Glucose 121 H Lactic Acid Calcium 8.2 L Phosphorus Magnesium 2.40 H Total Bilirubin 3.80 H AST 70 H ALT Alkaline Phosphatase 176 H Total Protein 5.0 L Albumin 2.9 L Triglycerides Arterial Blood Glucose Arterial Blood Ionized Calcium Digoxin Crossmatch 12/28/20 12/28/20 12/28/20 11:34 15:00 17:35 WBC RBC Hgb Hct MCV MCHC RDW Plt Count Lymph % (Auto) [place] % (Auto) Eos % (Auto) Lymph # (Auto) [place] # (Auto) Eos # (Auto) Seg Neutrophils % Seg Neuts % (Manual) Lymphocytes % (Manual) Monocytes % (Manual) Seg Neutrophils # Seg Neutrophils # Man Lymphocytes # (Manual) Monocytes # (Manual) PT INR ABG pH 7.461 H POC ABG pCO2 POC ABG pO2 72.2 L ABG pO2 ABG HCO3 ABG O2 Saturation ABG Base Excess ABG Hemoglobin 8.2 L ABG Oxyhemoglobin 93.6 L ABG Sodium 134.1 L ABG Potassium 3.2 L ABG Chloride ABG Glucose 135 H Oxyhemoglobin Sodium Potassium Chloride Carbon Dioxide BUN Creatinine Glucose POC Glucose 137 H 144 H Lactic Acid Calcium Phosphorus Magnesium Total Bilirubin AST ALT Alkaline Phosphatase Total Protein Albumin Triglycerides Arterial Blood Glucose 135 H Arterial Blood Ionized Calcium 4.4 L Digoxin Crossmatch 12/28/20 12/28/20 12/29/20 19:44 Unknown 00:21 WBC RBC Hgb Hct MCV MCHC RDW Plt Count Lymph % (Auto) [place] % (Auto) Eos % (Auto) Lymph # (Auto) [place] # (Auto) Eos # (Auto) Seg Neutrophils % Seg Neuts % (Manual) Lymphocytes % (Manual) Monocytes % (Manual) Seg Neutrophils # Seg Neutrophils # Man Lymphocytes # (Manual) Monocytes # (Manual) PT INR ABG pH 7.474 H POC ABG pCO2 POC ABG pO2 ABG pO2 ABG HCO3 ABG O2 Saturation ABG Base Excess ABG Hemoglobin 7.8 L ABG Oxyhemoglobin ABG Sodium 133.2 L ABG Potassium ABG Chloride ABG Glucose 139 H Oxyhemoglobin Sodium 135 L Potassium Chloride 96.6 L Carbon Dioxide BUN 47 H Creatinine 7.4 H Glucose 130 H POC Glucose 142 H Lactic Acid Calcium 8.3 L Phosphorus Magnesium Total Bilirubin AST ALT Alkaline Phosphatase Total Protein Albumin Triglycerides Arterial Blood Glucose 139 H Arterial Blood Ionized Calcium 4.3 L Digoxin Crossmatch 12/29/20 12/29/20 12/29/20 05:16 05:16 05:26 WBC RBC 2.53 L Hgb 7.7 L Hct 22.8 L MCV MCHC RDW 17.0 H Plt Count 130 L Lymph % (Auto) [place] % (Auto) Eos % (Auto) Lymph # (Auto) [place] # (Auto) Eos # (Auto) Seg Neutrophils % Seg Neuts % (Manual) 79.0 H Lymphocytes % (Manual) 9.0 L Monocytes % (Manual) Seg Neutrophils # Seg Neutrophils # Man Lymphocytes # (Manual) 0.6 L Monocytes # (Manual) PT INR ABG pH POC ABG pCO2 POC ABG pO2 ABG pO2 ABG HCO3 ABG O2 Saturation ABG Base Excess ABG Hemoglobin ABG Oxyhemoglobin ABG Sodium ABG Potassium ABG Chloride ABG Glucose Oxyhemoglobin Sodium Potassium 3.4 L Chloride 96.6 L Carbon Dioxide BUN 59 H Creatinine 8.3 H Glucose 127 H POC Glucose 141 H Lactic Acid Calcium 8.2 L Phosphorus Magnesium Total Bilirubin 3.00 H AST 88 H ALT Alkaline Phosphatase 188 H Total Protein 5.1 L Albumin 2.8 L Triglycerides Arterial Blood Glucose Arterial Blood Ionized Calcium Digoxin Crossmatch 12/29/20 12/29/20 12/29/20 11:33 17:29 23:22 WBC RBC Hgb Hct MCV MCHC RDW Plt Count Lymph % (Auto) [place] % (Auto) Eos % (Auto) Lymph # (Auto) [place] # (Auto) Eos # (Auto) Seg Neutrophils % Seg Neuts % (Manual) Lymphocytes % (Manual) Monocytes % (Manual) Seg Neutrophils # Seg Neutrophils # Man Lymphocytes # (Manual) Monocytes # (Manual) PT INR ABG pH POC ABG pCO2 POC ABG pO2 ABG pO2 ABG HCO3 ABG O2 Saturation ABG Base Excess ABG Hemoglobin ABG Oxyhemoglobin ABG Sodium ABG Potassium ABG Chloride ABG Glucose Oxyhemoglobin Sodium Potassium Chloride Carbon Dioxide BUN Creatinine Glucose POC Glucose 144 H 130 H 117 H Lactic Acid Calcium Phosphorus Magnesium Total Bilirubin AST ALT Alkaline Phosphatase Total Protein Albumin Triglycerides Arterial Blood Glucose Arterial Blood Ionized Calcium Digoxin Crossmatch 12/30/20 12/30/20 12/30/20 05:23 08:15 09:00 WBC RBC Hgb Hct MCV MCHC RDW Plt Count Lymph % (Auto) [place] % (Auto) Eos % (Auto) Lymph # (Auto) [place] # (Auto) Eos # (Auto) Seg Neutrophils % Seg Neuts % (Manual) Lymphocytes % (Manual) Monocytes % (Manual) Seg Neutrophils # Seg Neutrophils # Man Lymphocytes # (Manual) Monocytes # (Manual) PT INR ABG pH POC ABG pCO2 POC ABG pO2 ABG pO2 ABG HCO3 ABG O2 Saturation ABG Base Excess ABG Hemoglobin ABG Oxyhemoglobin ABG Sodium ABG Potassium ABG Chloride ABG Glucose Oxyhemoglobin Sodium 135 L Potassium Chloride 95.9 L Carbon Dioxide BUN 85 H Creatinine 10.6 H Glucose 128 H POC Glucose 135 H 127 H Lactic Acid Calcium 8.3 L Phosphorus Magnesium Total Bilirubin 2.40 H AST 85 H ALT Alkaline Phosphatase 216 H Total Protein 5.3 L Albumin 2.6 L Triglycerides 155 H Arterial Blood Glucose Arterial Blood Ionized Calcium Digoxin Crossmatch 12/30/20 12/30/20 12/30/20 09:00 11:53 15:49 WBC RBC 2.61 L Hgb 7.8 L Hct 23.7 L MCV MCHC RDW 17.3 H Plt Count Lymph % (Auto) [place] % (Auto) Eos % (Auto) Lymph # (Auto) [place] # (Auto) Eos # (Auto) Seg Neutrophils % Seg Neuts % (Manual) Lymphocytes % (Manual) Monocytes % (Manual) Seg Neutrophils # Seg Neutrophils # Man Lymphocytes # (Manual) Monocytes # (Manual) PT INR ABG pH POC ABG pCO2 POC ABG pO2 ABG pO2 ABG HCO3 ABG O2 Saturation ABG Base Excess ABG Hemoglobin ABG Oxyhemoglobin ABG Sodium ABG Potassium ABG Chloride ABG Glucose Oxyhemoglobin Sodium Potassium Chloride Carbon Dioxide BUN Creatinine Glucose POC Glucose 155 H 146 H Lactic Acid Calcium Phosphorus Magnesium Total Bilirubin AST ALT Alkaline Phosphatase Total Protein Albumin Triglycerides Arterial Blood Glucose Arterial Blood Ionized Calcium Digoxin Crossmatch 12/30/20 12/30/20 12/31/20 17:53 23:45 03:56 WBC RBC Hgb Hct MCV MCHC RDW Plt Count Lymph % (Auto) [place] % (Auto) Eos % (Auto) Lymph # (Auto) [place] # (Auto) Eos # (Auto) Seg Neutrophils % Seg Neuts % (Manual) Lymphocytes % (Manual) Monocytes % (Manual) Seg Neutrophils # Seg Neutrophils # Man Lymphocytes # (Manual) Monocytes # (Manual) PT INR ABG pH POC ABG pCO2 POC ABG pO2 49.4 L ABG pO2 ABG HCO3 ABG O2 Saturation ABG Base Excess ABG Hemoglobin 10.3 L ABG Oxyhemoglobin 84.2 L ABG Sodium 133.1 L ABG Potassium ABG Chloride ABG Glucose 173 H Oxyhemoglobin Sodium Potassium Chloride Carbon Dioxide BUN Creatinine Glucose POC Glucose 139 H 173 H Lactic Acid Calcium Phosphorus Magnesium Total Bilirubin AST ALT Alkaline Phosphatase Total Protein Albumin Triglycerides Arterial Blood Glucose 173 H Arterial Blood Ionized Calcium Digoxin Crossmatch 12/31/20 12/31/20 12/31/20 05:07 06:51 06:51 WBC 20.3 H RBC 3.32 L Hgb 9.8 L Hct 30.3 L D MCV MCHC RDW 17.3 H Plt Count Lymph % (Auto) [place] % (Auto) Eos % (Auto) Lymph # (Auto) [place] # (Auto) Eos # (Auto) Seg Neutrophils % Seg Neuts % (Manual) 87.0 H Lymphocytes % (Manual) 10.0 L Monocytes % (Manual) Seg Neutrophils # Seg Neutrophils # Man 17.7 H Lymphocytes # (Manual) Monocytes # (Manual) PT INR ABG pH POC ABG pCO2 POC ABG pO2 ABG pO2 ABG HCO3 ABG O2 Saturation ABG Base Excess ABG Hemoglobin ABG Oxyhemoglobin ABG Sodium ABG Potassium ABG Chloride ABG Glucose Oxyhemoglobin Sodium Potassium 5.2 H D Chloride Carbon Dioxide BUN 62 H Creatinine 8.4 H Glucose 116 H POC Glucose 120 H Lactic Acid Calcium Phosphorus Magnesium 1.60 L Total Bilirubin AST ALT Alkaline Phosphatase Total Protein Albumin Triglycerides Arterial Blood Glucose Arterial Blood Ionized Calcium Digoxin Crossmatch 12/31/20 12/31/20 12/31/20 09:38 12:19 12:22 WBC RBC Hgb Hct MCV MCHC RDW Plt Count Lymph % (Auto) [place] % (Auto) Eos % (Auto) Lymph # (Auto) [place] # (Auto) Eos # (Auto) Seg Neutrophils % Seg Neuts % (Manual) Lymphocytes % (Manual) Monocytes % (Manual) Seg Neutrophils # Seg Neutrophils # Man Lymphocytes # (Manual) Monocytes # (Manual) PT INR ABG pH POC ABG pCO2 POC ABG pO2 ABG pO2 354.0 H ABG HCO3 ABG O2 Saturation 99.6 H ABG Base Excess ABG Hemoglobin 9.1 L ABG Oxyhemoglobin ABG Sodium ABG Potassium ABG Chloride ABG Glucose Oxyhemoglobin Sodium Potassium 5.2 H Chloride Carbon Dioxide BUN Creatinine Glucose POC Glucose 132 H Lactic Acid Calcium Phosphorus Magnesium Total Bilirubin AST ALT Alkaline Phosphatase Total Protein Albumin Triglycerides Arterial Blood Glucose Arterial Blood Ionized Calcium Digoxin Crossmatch 12/31/20 01/01/21 01/01/21 23:23 03:03 05:04 WBC RBC Hgb Hct MCV MCHC RDW Plt Count Lymph % (Auto) [place] % (Auto) Eos % (Auto) Lymph # (Auto) [place] # (Auto) Eos # (Auto) Seg Neutrophils % Seg Neuts % (Manual) Lymphocytes % (Manual) Monocytes % (Manual) Seg Neutrophils # Seg Neutrophils # Man Lymphocytes # (Manual) Monocytes # (Manual) PT INR ABG pH POC ABG pCO2 POC ABG pO2 79.6 L ABG pO2 ABG HCO3 ABG O2 Saturation ABG Base Excess ABG Hemoglobin 9.2 L ABG Oxyhemoglobin ABG Sodium 131.6 L ABG Potassium 5.8 H ABG Chloride ABG Glucose 177 H Oxyhemoglobin Sodium Potassium Chloride Carbon Dioxide BUN Creatinine Glucose POC Glucose 174 H 167 H Lactic Acid Calcium Phosphorus Magnesium Total Bilirubin AST ALT Alkaline Phosphatase Total Protein Albumin Triglycerides Arterial Blood Glucose 177 H Arterial Blood Ionized Calcium Digoxin Crossmatch 01/01/21 01/01/21 01/01/21 07:31 07:31 11:31 WBC 26.1 H RBC 2.95 L Hgb 8.6 L Hct 27.1 L MCV MCHC RDW 18.2 H Plt Count Lymph % (Auto) [place] % (Auto) Eos % (Auto) Lymph # (Auto) [place] # (Auto) Eos # (Auto) Seg Neutrophils % Seg Neuts % (Manual) 96.0 H Lymphocytes % (Manual) 4.0 L Monocytes % (Manual) Seg Neutrophils # Seg Neutrophils # Man 25.1 H Lymphocytes # (Manual) 1.0 L Monocytes # (Manual) PT INR ABG pH POC ABG pCO2 POC ABG pO2 ABG pO2 ABG HCO3 ABG O2 Saturation ABG Base Excess ABG Hemoglobin ABG Oxyhemoglobin ABG Sodium ABG Potassium ABG Chloride ABG Glucose Oxyhemoglobin Sodium Potassium 6.0 H Chloride Carbon Dioxide 21 L BUN 89 H Creatinine 10.5 H Glucose 179 H POC Glucose Lactic Acid Calcium Phosphorus Magnesium Total Bilirubin AST ALT Alkaline Phosphatase Total Protein Albumin Triglycerides Arterial Blood Glucose Arterial Blood Ionized Calcium Digoxin Crossmatch See Detail 01/01/21 01/01/21 01/01/21 11:51 12:45 16:52 WBC RBC Hgb Hct MCV MCHC RDW Plt Count Lymph % (Auto) [place] % (Auto) Eos % (Auto) Lymph # (Auto) [place] # (Auto) Eos # (Auto) Seg Neutrophils % Seg Neuts % (Manual) Lymphocytes % (Manual) Monocytes % (Manual) Seg Neutrophils # Seg Neutrophils # Man Lymphocytes # (Manual) Monocytes # (Manual) PT 16.9 H INR 1.39 H ABG pH POC ABG pCO2 POC ABG pO2 ABG pO2 ABG HCO3 ABG O2 Saturation ABG Base Excess ABG Hemoglobin ABG Oxyhemoglobin ABG Sodium ABG Potassium ABG Chloride ABG Glucose Oxyhemoglobin Sodium Potassium Chloride Carbon Dioxide BUN Creatinine Glucose POC Glucose 157 H 177 H Lactic Acid Calcium Phosphorus Magnesium Total Bilirubin AST ALT Alkaline Phosphatase Total Protein Albumin Triglycerides Arterial Blood Glucose Arterial Blood Ionized Calcium Digoxin Crossmatch 01/01/21 01/01/21 01/01/21 17:58 17:58 20:12 WBC 26.9 H RBC 3.14 L Hgb 9.3 L Hct 29.6 L MCV MCHC RDW 17.5 H Plt Count Lymph % (Auto) [place] % (Auto) Eos % (Auto) Lymph # (Auto) [place] # (Auto) Eos # (Auto) Seg Neutrophils % Seg Neuts % (Manual) 84.0 H Lymphocytes % (Manual) 4.0 L Monocytes % (Manual) 12.0 H Seg Neutrophils # Seg Neutrophils # Man 22.6 H Lymphocytes # (Manual) 1.1 L Monocytes # (Manual) 3.2 H PT INR ABG pH POC ABG pCO2 POC ABG pO2 ABG pO2 ABG HCO3 ABG O2 Saturation ABG Base Excess ABG Hemoglobin ABG Oxyhemoglobin ABG Sodium ABG Potassium ABG Chloride ABG Glucose Oxyhemoglobin Sodium 136 L Potassium 6.2 H* Chloride Carbon Dioxide 21 L BUN 92 H Creatinine 10.8 H Glucose 171 H POC Glucose 288 H Lactic Acid Calcium Phosphorus Magnesium Total Bilirubin 2.10 H AST 223 H ALT 100 H Alkaline Phosphatase 206 H Total Protein 4.8 L Albumin 1.9 L Triglycerides Arterial Blood Glucose Arterial Blood Ionized Calcium Digoxin Crossmatch 01/02/21 01/02/21 01/02/21 00:12 00:45 03:05 WBC RBC Hgb Hct MCV MCHC RDW Plt Count Lymph % (Auto) [place] % (Auto) Eos % (Auto) Lymph # (Auto) [place] # (Auto) Eos # (Auto) Seg Neutrophils % Seg Neuts % (Manual) Lymphocytes % (Manual) Monocytes % (Manual) Seg Neutrophils # Seg Neutrophils # Man Lymphocytes # (Manual) Monocytes # (Manual) PT INR ABG pH POC ABG pCO2 POC ABG pO2 81.8 L ABG pO2 ABG HCO3 ABG O2 Saturation ABG Base Excess ABG Hemoglobin 8.0 L ABG Oxyhemoglobin ABG Sodium 129.8 L ABG Potassium 5.4 H ABG Chloride ABG Glucose 257 H Oxyhemoglobin Sodium 136 L Potassium 5.8 H Chloride 96.6 L Carbon Dioxide BUN 95 H Creatinine 11.2 H Glucose 238 H POC Glucose 223 H Lactic Acid Calcium Phosphorus Magnesium Total Bilirubin AST ALT Alkaline Phosphatase Total Protein Albumin Triglycerides Arterial Blood Glucose 257 H Arterial Blood Ionized Calcium 4.0 L Digoxin Crossmatch 01/02/21 01/02/21 01/02/21 06:25 08:00 08:00 WBC 17.5 H RBC 2.31 L Hgb 6.7 L Hct 22.1 L D MCV 96 H MCHC 30 L RDW 18.4 H Plt Count Lymph % (Auto) [place] % (Auto) Eos % (Auto) Lymph # (Auto) [place] # (Auto) Eos # (Auto) Seg Neutrophils % Seg Neuts % (Manual) Lymphocytes % (Manual) Monocytes % (Manual) Seg Neutrophils # Seg Neutrophils # Man Lymphocytes # (Manual) Monocytes # (Manual) PT INR ABG pH POC ABG pCO2 POC ABG pO2 ABG pO2 ABG HCO3 ABG O2 Saturation ABG Base Excess ABG Hemoglobin ABG Oxyhemoglobin ABG Sodium ABG Potassium ABG Chloride ABG Glucose Oxyhemoglobin Sodium 134 L Potassium 5.3 H Chloride 92.9 L Carbon Dioxide BUN 101 H Creatinine 10.9 H Glucose 560 H* POC Glucose 239 H Lactic Acid Calcium 7.6 L Phosphorus 6.50 H Magnesium Total Bilirubin AST ALT Alkaline Phosphatase Total Protein Albumin Triglycerides Arterial Blood Glucose Arterial Blood Ionized Calcium Digoxin Crossmatch 01/02/21 01/02/21 01/02/21 11:26 15:00 17:57 WBC RBC Hgb Hct MCV MCHC RDW Plt Count Lymph % (Auto) [place] % (Auto) Eos % (Auto) Lymph # (Auto) [place] # (Auto) Eos # (Auto) Seg Neutrophils % Seg Neuts % (Manual) Lymphocytes % (Manual) Monocytes % (Manual) Seg Neutrophils # Seg Neutrophils # Man Lymphocytes # (Manual) Monocytes # (Manual) PT INR ABG pH POC ABG pCO2 POC ABG pO2 ABG pO2 ABG HCO3 ABG O2 Saturation ABG Base Excess ABG Hemoglobin ABG Oxyhemoglobin ABG Sodium ABG Potassium ABG Chloride ABG Glucose Oxyhemoglobin Sodium Potassium Chloride Carbon Dioxide BUN Creatinine Glucose 241 H POC Glucose 205 H 272 H Lactic Acid Calcium Phosphorus Magnesium Total Bilirubin AST ALT Alkaline Phosphatase Total Protein Albumin Triglycerides Arterial Blood Glucose Arterial Blood Ionized Calcium Digoxin Crossmatch 01/02/21 01/02/21 01/03/21 23:25 23:43 03:45 WBC RBC Hgb Hct MCV MCHC RDW Plt Count Lymph % (Auto) [place] % (Auto) Eos % (Auto) Lymph # (Auto) [place] # (Auto) Eos # (Auto) Seg Neutrophils % Seg Neuts % (Manual) Lymphocytes % (Manual) Monocytes % (Manual) Seg Neutrophils # Seg Neutrophils # Man Lymphocytes # (Manual) Monocytes # (Manual) PT INR ABG pH POC ABG pCO2 48.3 H POC ABG pO2 134.4 H 79.7 L ABG pO2 ABG HCO3 ABG O2 Saturation ABG Base Excess ABG Hemoglobin 7.7 L 8.6 L ABG Oxyhemoglobin ABG Sodium 131.8 L 130.4 L ABG Potassium ABG Chloride 97.0 L ABG Glucose 218 H 238 H Oxyhemoglobin Sodium Potassium Chloride Carbon Dioxide BUN Creatinine Glucose POC Glucose 218 H Lactic Acid Calcium Phosphorus Magnesium Total Bilirubin AST ALT Alkaline Phosphatase Total Protein Albumin Triglycerides Arterial Blood Glucose 218 H 238 H Arterial Blood Ionized Calcium 4.1 L 4.0 L Digoxin Crossmatch 01/03/21 01/03/21 01/03/21 04:37 04:37 05:39 WBC 15.2 H RBC 2.38 L Hgb 7.3 L Hct 21.6 L MCV MCHC RDW 16.6 H Plt Count Lymph % (Auto) [place] % (Auto) Eos % (Auto) Lymph # (Auto) [place] # (Auto) Eos # (Auto) Seg Neutrophils % Seg Neuts % (Manual) Lymphocytes % (Manual) Monocytes % (Manual) Seg Neutrophils # Seg Neutrophils # Man Lymphocytes # (Manual) Monocytes # (Manual) PT INR ABG pH POC ABG pCO2 POC ABG pO2 ABG pO2 ABG HCO3 ABG O2 Saturation ABG Base Excess ABG Hemoglobin ABG Oxyhemoglobin ABG Sodium ABG Potassium ABG Chloride ABG Glucose Oxyhemoglobin Sodium 136 L Potassium Chloride 94.5 L Carbon Dioxide BUN 69 H Creatinine 8.0 H Glucose 219 H POC Glucose 222 H Lactic Acid Calcium 7.8 L Phosphorus 4.80 H D Magnesium Total Bilirubin AST ALT Alkaline Phosphatase Total Protein Albumin Triglycerides Arterial Blood Glucose Arterial Blood Ionized Calcium Digoxin Crossmatch 01/03/21 01/03/21 01/03/21 11:29 18:49 23:37 WBC RBC Hgb Hct MCV MCHC RDW Plt Count Lymph % (Auto) [place] % (Auto) Eos % (Auto) Lymph # (Auto) [place] # (Auto) Eos # (Auto) Seg Neutrophils % Seg Neuts % (Manual) Lymphocytes % (Manual) Monocytes % (Manual) Seg Neutrophils # Seg Neutrophils # Man Lymphocytes # (Manual) Monocytes # (Manual) PT INR ABG pH POC ABG pCO2 POC ABG pO2 ABG pO2 ABG HCO3 ABG O2 Saturation ABG Base Excess ABG Hemoglobin ABG Oxyhemoglobin ABG Sodium ABG Potassium ABG Chloride ABG Glucose Oxyhemoglobin Sodium Potassium Chloride Carbon Dioxide BUN Creatinine Glucose POC Glucose 232 H 129 H 140 H Lactic Acid Calcium Phosphorus Magnesium Total Bilirubin AST ALT Alkaline Phosphatase Total Protein Albumin Triglycerides Arterial Blood Glucose Arterial Blood Ionized Calcium Digoxin Crossmatch 01/04/21 01/04/21 01/04/21 03:22 04:38 04:38 WBC 11.1 H RBC 2.89 L Hgb 8.9 L Hct 26.2 L MCV MCHC RDW 16.1 H Plt Count Lymph % (Auto) [place] % (Auto) Eos % (Auto) Lymph # (Auto) [place] # (Auto) Eos # (Auto) Seg Neutrophils % Seg Neuts % (Manual) Lymphocytes % (Manual) Monocytes % (Manual) Seg Neutrophils # Seg Neutrophils # Man Lymphocytes # (Manual) Monocytes # (Manual) PT INR ABG pH POC ABG pCO2 POC ABG pO2 82.3 L ABG pO2 ABG HCO3 ABG O2 Saturation ABG Base Excess ABG Hemoglobin 8.9 L ABG Oxyhemoglobin ABG Sodium 130.5 L ABG Potassium ABG Chloride ABG Glucose 124 H Oxyhemoglobin Sodium Potassium Chloride 95.5 L Carbon Dioxide BUN 87 H Creatinine 9.7 H Glucose 118 H POC Glucose Lactic Acid Calcium 7.7 L Phosphorus Magnesium Total Bilirubin AST ALT Alkaline Phosphatase Total Protein Albumin Triglycerides Arterial Blood Glucose 124 H Arterial Blood Ionized Calcium 3.5 L Digoxin Crossmatch 01/04/21 01/04/21 01/04/21 05:39 12:04 18:04 WBC RBC Hgb Hct MCV MCHC RDW Plt Count Lymph % (Auto) [place] % (Auto) Eos % (Auto) Lymph # (Auto) [place] # (Auto) Eos # (Auto) Seg Neutrophils % Seg Neuts % (Manual) Lymphocytes % (Manual) Monocytes % (Manual) Seg Neutrophils # Seg Neutrophils # Man Lymphocytes # (Manual) Monocytes # (Manual) PT INR ABG pH POC ABG pCO2 POC ABG pO2 ABG pO2 ABG HCO3 ABG O2 Saturation ABG Base Excess ABG Hemoglobin ABG Oxyhemoglobin ABG Sodium ABG Potassium ABG Chloride ABG Glucose Oxyhemoglobin Sodium Potassium Chloride Carbon Dioxide BUN Creatinine Glucose POC Glucose 134 H 125 H 131 H Lactic Acid Calcium Phosphorus Magnesium Total Bilirubin AST ALT Alkaline Phosphatase Total Protein Albumin Triglycerides Arterial Blood Glucose Arterial Blood Ionized Calcium Digoxin Crossmatch 01/04/21 01/05/21 01/05/21 23:41 03:23 04:49 WBC RBC Hgb Hct MCV MCHC RDW Plt Count Lymph % (Auto) [place] % (Auto) Eos % (Auto) Lymph # (Auto) [place] # (Auto) Eos # (Auto) Seg Neutrophils % Seg Neuts % (Manual) Lymphocytes % (Manual) Monocytes % (Manual) Seg Neutrophils # Seg Neutrophils # Man Lymphocytes # (Manual) Monocytes # (Manual) PT INR ABG pH POC ABG pCO2 POC ABG pO2 62.8 L ABG pO2 ABG HCO3 ABG O2 Saturation ABG Base Excess ABG Hemoglobin 9.5 L ABG Oxyhemoglobin 92.0 L ABG Sodium 130.1 L ABG Potassium ABG Chloride ABG Glucose 148 H Oxyhemoglobin Sodium Potassium Chloride 96.9 L Carbon Dioxide BUN 57 H Creatinine 6.7 H Glucose 135 H POC Glucose 132 H Lactic Acid Calcium 8.0 L Phosphorus Magnesium Total Bilirubin AST ALT Alkaline Phosphatase Total Protein Albumin Triglycerides Arterial Blood Glucose 148 H Arterial Blood Ionized Calcium 4.1 L Digoxin Crossmatch 01/05/21 01/05/21 01/05/21 05:04 11:48 12:39 WBC RBC 3.03 L Hgb 9.3 L Hct 27.6 L MCV MCHC RDW 16.5 H Plt Count Lymph % (Auto) [place] % (Auto) Eos % (Auto) Lymph # (Auto) [place] # (Auto) Eos # (Auto) Seg Neutrophils % Seg Neuts % (Manual) Lymphocytes % (Manual) Monocytes % (Manual) Seg Neutrophils # Seg Neutrophils # Man Lymphocytes # (Manual) Monocytes # (Manual) PT INR ABG pH POC ABG pCO2 POC ABG pO2 ABG pO2 ABG HCO3 ABG O2 Saturation ABG Base Excess ABG Hemoglobin ABG Oxyhemoglobin ABG Sodium ABG Potassium ABG Chloride ABG Glucose Oxyhemoglobin Sodium Potassium Chloride Carbon Dioxide BUN Creatinine Glucose POC Glucose 147 H 162 H Lactic Acid Calcium Phosphorus Magnesium Total Bilirubin AST ALT Alkaline Phosphatase Total Protein Albumin Triglycerides Arterial Blood Glucose Arterial Blood Ionized Calcium Digoxin Crossmatch 01/05/21 01/05/21 01/06/21 17:50 23:32 04:15 WBC RBC Hgb Hct MCV MCHC RDW Plt Count Lymph % (Auto) [place] % (Auto) Eos % (Auto) Lymph # (Auto) [place] # (Auto) Eos # (Auto) Seg Neutrophils % Seg Neuts % (Manual) Lymphocytes % (Manual) Monocytes % (Manual) Seg Neutrophils # Seg Neutrophils # Man Lymphocytes # (Manual) Monocytes # (Manual) PT INR ABG pH POC ABG pCO2 POC ABG pO2 ABG pO2 191.0 H ABG HCO3 ABG O2 Saturation 99.2 H ABG Base Excess ABG Hemoglobin 9.0 L ABG Oxyhemoglobin ABG Sodium ABG Potassium ABG Chloride ABG Glucose Oxyhemoglobin Sodium Potassium Chloride Carbon Dioxide BUN Creatinine Glucose POC Glucose 155 H 115 H Lactic Acid Calcium Phosphorus Magnesium Total Bilirubin AST ALT Alkaline Phosphatase Total Protein Albumin Triglycerides Arterial Blood Glucose Arterial Blood Ionized Calcium Digoxin Crossmatch 01/06/21 01/06/21 01/06/21 04:45 05:56 07:03 WBC RBC 2.95 L Hgb 9.1 L Hct 26.8 L MCV MCHC RDW 16.8 H Plt Count Lymph % (Auto) [place] % (Auto) Eos % (Auto) Lymph # (Auto) [place] # (Auto) Eos # (Auto) Seg Neutrophils % Seg Neuts % (Manual) Lymphocytes % (Manual) Monocytes % (Manual) Seg Neutrophils # Seg Neutrophils # Man Lymphocytes # (Manual) Monocytes # (Manual) PT INR ABG pH POC ABG pCO2 POC ABG pO2 ABG pO2 ABG HCO3 ABG O2 Saturation ABG Base Excess ABG Hemoglobin ABG Oxyhemoglobin ABG Sodium ABG Potassium ABG Chloride ABG Glucose Oxyhemoglobin Sodium 135 L Potassium Chloride 95.9 L Carbon Dioxide BUN 82 H Creatinine 8.7 H Glucose 127 H POC Glucose 136 H Lactic Acid Calcium 8.3 L Phosphorus Magnesium Total Bilirubin AST ALT Alkaline Phosphatase Total Protein Albumin Triglycerides Arterial Blood Glucose Arterial Blood Ionized Calcium Digoxin Crossmatch 01/06/21 01/06/21 01/06/21 07:10 11:04 13:38 WBC RBC Hgb Hct MCV MCHC RDW Plt Count Lymph % (Auto) [place] % (Auto) Eos % (Auto) Lymph # (Auto) [place] # (Auto) Eos # (Auto) Seg Neutrophils % Seg Neuts % (Manual) Lymphocytes % (Manual) Monocytes % (Manual) Seg Neutrophils # Seg Neutrophils # Man Lymphocytes # (Manual) Monocytes # (Manual) PT INR ABG pH POC ABG pCO2 POC ABG pO2 ABG pO2 ABG HCO3 ABG O2 Saturation ABG Base Excess ABG Hemoglobin ABG Oxyhemoglobin ABG Sodium ABG Potassium ABG Chloride ABG Glucose Oxyhemoglobin Sodium Potassium Chloride Carbon Dioxide BUN Creatinine Glucose POC Glucose 178 H 155 H Lactic Acid Calcium Phosphorus Magnesium Total Bilirubin AST ALT Alkaline Phosphatase Total Protein Albumin Triglycerides Arterial Blood Glucose Arterial Blood Ionized Calcium Digoxin Crossmatch See Detail 01/06/21 01/06/21 01/07/21 17:35 22:21 03:07 WBC RBC Hgb Hct MCV MCHC RDW Plt Count Lymph % (Auto) [place] % (Auto) Eos % (Auto) Lymph # (Auto) [place] # (Auto) Eos # (Auto) Seg Neutrophils % Seg Neuts % (Manual) Lymphocytes % (Manual) Monocytes % (Manual) Seg Neutrophils # Seg Neutrophils # Man Lymphocytes # (Manual) Monocytes # (Manual) PT INR ABG pH POC ABG pCO2 POC ABG pO2 ABG pO2 ABG HCO3 ABG O2 Saturation ABG Base Excess ABG Hemoglobin 11.9 L ABG Oxyhemoglobin ABG Sodium 135.6 L ABG Potassium ABG Chloride ABG Glucose 181 H Oxyhemoglobin Sodium Potassium Chloride Carbon Dioxide BUN Creatinine Glucose POC Glucose 138 H 202 H Lactic Acid Calcium Phosphorus Magnesium Total Bilirubin AST ALT Alkaline Phosphatase Total Protein Albumin Triglycerides Arterial Blood Glucose 181 H Arterial Blood Ionized Calcium 4.3 L Digoxin Crossmatch 01/07/21 01/07/21 01/07/21 04:50 05:21 08:37 WBC 12.4 H RBC Hgb 11.1 L Hct 33.3 L D MCV MCHC RDW 17.0 H Plt Count Lymph % (Auto) 3.2 L [place] % (Auto) 9.4 H Eos % (Auto) Lymph # (Auto) 0.4 L [place] # (Auto) 1.2 H Eos # (Auto) Seg Neutrophils % 86.6 H Seg Neuts % (Manual) Lymphocytes % (Manual) Monocytes % (Manual) Seg Neutrophils # 10.7 H Seg Neutrophils # Man Lymphocytes # (Manual) Monocytes # (Manual) PT INR ABG pH POC ABG pCO2 POC ABG pO2 ABG pO2 ABG HCO3 ABG O2 Saturation ABG Base Excess ABG Hemoglobin ABG Oxyhemoglobin ABG Sodium ABG Potassium ABG Chloride ABG Glucose Oxyhemoglobin Sodium Potassium Chloride Carbon Dioxide BUN 60 H Creatinine 6.3 H Glucose 154 H POC Glucose 177 H Lactic Acid Calcium 8.3 L Phosphorus Magnesium Total Bilirubin AST ALT Alkaline Phosphatase Total Protein Albumin Triglycerides Arterial Blood Glucose Arterial Blood Ionized Calcium Digoxin Crossmatch 01/07/21 01/07/21 01/07/21 11:21 12:19 17:11 WBC RBC Hgb Hct MCV MCHC RDW Plt Count Lymph % (Auto) [place] % (Auto) Eos % (Auto) Lymph # (Auto) [place] # (Auto) Eos # (Auto) Seg Neutrophils % Seg Neuts % (Manual) Lymphocytes % (Manual) Monocytes % (Manual) Seg Neutrophils # Seg Neutrophils # Man Lymphocytes # (Manual) Monocytes # (Manual) PT INR ABG pH POC ABG pCO2 POC ABG pO2 ABG pO2 ABG HCO3 ABG O2 Saturation ABG Base Excess ABG Hemoglobin ABG Oxyhemoglobin ABG Sodium ABG Potassium ABG Chloride ABG Glucose Oxyhemoglobin Sodium Potassium Chloride Carbon Dioxide BUN Creatinine Glucose POC Glucose 144 H 137 H 119 H Lactic Acid Calcium Phosphorus Magnesium Total Bilirubin AST ALT Alkaline Phosphatase Total Protein Albumin Triglycerides Arterial Blood Glucose Arterial Blood Ionized Calcium Digoxin Crossmatch 01/07/21 01/07/21 01/08/21 17:14 23:39 04:34 WBC RBC Hgb Hct MCV MCHC RDW Plt Count Lymph % (Auto) [place] % (Auto) Eos % (Auto) Lymph # (Auto) [place] # (Auto) Eos # (Auto) Seg Neutrophils % Seg Neuts % (Manual) Lymphocytes % (Manual) Monocytes % (Manual) Seg Neutrophils # Seg Neutrophils # Man Lymphocytes # (Manual) Monocytes # (Manual) PT INR ABG pH 7.345 L POC ABG pCO2 POC ABG pO2 ABG pO2 67.4 L ABG HCO3 ABG O2 Saturation 94.3 L ABG Base Excess -3.9 L ABG Hemoglobin 8.9 L ABG Oxyhemoglobin ABG Sodium ABG Potassium ABG Chloride ABG Glucose Oxyhemoglobin 92.3 L Sodium Potassium Chloride Carbon Dioxide 20 L BUN 93 H Creatinine 8.8 H Glucose 120 H POC Glucose 129 H Lactic Acid Calcium Phosphorus Magnesium Total Bilirubin AST ALT Alkaline Phosphatase 133 H Total Protein 5.4 L Albumin 1.9 L Triglycerides Arterial Blood Glucose Arterial Blood Ionized Calcium Digoxin Crossmatch 01/08/21 01/08/21 01/08/21 05:26 11:38 17:19 WBC RBC Hgb Hct MCV MCHC RDW Plt Count Lymph % (Auto) [place] % (Auto) Eos % (Auto) Lymph # (Auto) [place] # (Auto) Eos # (Auto) Seg Neutrophils % Seg Neuts % (Manual) Lymphocytes % (Manual) Monocytes % (Manual) Seg Neutrophils # Seg Neutrophils # Man Lymphocytes # (Manual) Monocytes # (Manual) PT INR ABG pH POC ABG pCO2 POC ABG pO2 ABG pO2 ABG HCO3 ABG O2 Saturation ABG Base Excess ABG Hemoglobin ABG Oxyhemoglobin ABG Sodium ABG Potassium ABG Chloride ABG Glucose Oxyhemoglobin Sodium Potassium Chloride Carbon Dioxide BUN Creatinine Glucose POC Glucose 125 H 146 H 136 H Lactic Acid Calcium Phosphorus Magnesium Total Bilirubin AST ALT Alkaline Phosphatase Total Protein Albumin Triglycerides Arterial Blood Glucose Arterial Blood Ionized Calcium Digoxin Crossmatch 01/08/21 01/09/21 01/09/21 23:52 05:13 05:21 WBC RBC Hgb Hct MCV MCHC RDW Plt Count Lymph % (Auto) [place] % (Auto) Eos % (Auto) Lymph # (Auto) [place] # (Auto) Eos # (Auto) Seg Neutrophils % Seg Neuts % (Manual) Lymphocytes % (Manual) Monocytes % (Manual) Seg Neutrophils # Seg Neutrophils # Man Lymphocytes # (Manual) Monocytes # (Manual) PT INR ABG pH POC ABG pCO2 POC ABG pO2 ABG pO2 ABG HCO3 ABG O2 Saturation ABG Base Excess ABG Hemoglobin ABG Oxyhemoglobin ABG Sodium ABG Potassium ABG Chloride ABG Glucose Oxyhemoglobin Sodium Potassium Chloride Carbon Dioxide 16 L BUN 123 H Creatinine 10.8 H Glucose 145 H POC Glucose 143 H 144 H Lactic Acid Calcium Phosphorus 5.00 H D Magnesium 2.40 H Total Bilirubin AST ALT Alkaline Phosphatase Total Protein Albumin Triglycerides Arterial Blood Glucose Arterial Blood Ionized Calcium Digoxin Crossmatch 01/09/21 01/09/21 01/09/21 12:08 17:20 23:56 WBC RBC Hgb Hct MCV MCHC RDW Plt Count Lymph % (Auto) [place] % (Auto) Eos % (Auto) Lymph # (Auto) [place] # (Auto) Eos # (Auto) Seg Neutrophils % Seg Neuts % (Manual) Lymphocytes % (Manual) Monocytes % (Manual) Seg Neutrophils # Seg Neutrophils # Man Lymphocytes # (Manual) Monocytes # (Manual) PT INR ABG pH POC ABG pCO2 POC ABG pO2 ABG pO2 ABG HCO3 ABG O2 Saturation ABG Base Excess ABG Hemoglobin ABG Oxyhemoglobin ABG Sodium ABG Potassium ABG Chloride ABG Glucose Oxyhemoglobin Sodium Potassium Chloride Carbon Dioxide BUN Creatinine Glucose POC Glucose 153 H 160 H 158 H Lactic Acid Calcium Phosphorus Magnesium Total Bilirubin AST ALT Alkaline Phosphatase Total Protein Albumin Triglycerides Arterial Blood Glucose Arterial Blood Ionized Calcium Digoxin Crossmatch 01/10/21 01/10/21 01/10/21 04:52 05:44 07:41 WBC RBC Hgb Hct MCV MCHC RDW Plt Count Lymph % (Auto) [place] % (Auto) Eos % (Auto) Lymph # (Auto) [place] # (Auto) Eos # (Auto) Seg Neutrophils % Seg Neuts % (Manual) Lymphocytes % (Manual) Monocytes % (Manual) Seg Neutrophils # Seg Neutrophils # Man Lymphocytes # (Manual) Monocytes # (Manual) PT INR ABG pH POC ABG pCO2 POC ABG pO2 ABG pO2 ABG HCO3 ABG O2 Saturation ABG Base Excess ABG Hemoglobin ABG Oxyhemoglobin ABG Sodium ABG Potassium ABG Chloride ABG Glucose Oxyhemoglobin Sodium 135 L Potassium 3.5 L D Chloride 95.0 L Carbon Dioxide 21 L BUN 93 H Creatinine 8.3 H Glucose 127 H POC Glucose 135 H 157 H Lactic Acid Calcium Phosphorus Magnesium Total Bilirubin AST ALT Alkaline Phosphatase Total Protein Albumin Triglycerides Arterial Blood Glucose Arterial Blood Ionized Calcium Digoxin Crossmatch 01/10/21 01/10/21 01/10/21 09:26 12:03 17:44 WBC 18.2 H RBC 3.14 L Hgb 9.7 L Hct 28.2 L MCV MCHC RDW 16.5 H Plt Count Lymph % (Auto) [place] % (Auto) Eos % (Auto) Lymph # (Auto) [place] # (Auto) Eos # (Auto) Seg Neutrophils % Seg Neuts % (Manual) 95.0 H Lymphocytes % (Manual) 3.0 L Monocytes % (Manual) Seg Neutrophils # Seg Neutrophils # Man 17.3 H Lymphocytes # (Manual) 0.5 L Monocytes # (Manual) PT INR ABG pH POC ABG pCO2 POC ABG pO2 ABG pO2 ABG HCO3 ABG O2 Saturation ABG Base Excess ABG Hemoglobin ABG Oxyhemoglobin ABG Sodium ABG Potassium ABG Chloride ABG Glucose Oxyhemoglobin Sodium Potassium Chloride Carbon Dioxide BUN Creatinine Glucose POC Glucose 163 H 171 H Lactic Acid Calcium Phosphorus Magnesium Total Bilirubin AST ALT Alkaline Phosphatase Total Protein Albumin Triglycerides Arterial Blood Glucose Arterial Blood Ionized Calcium Digoxin Crossmatch 01/10/21 01/11/21 01/11/21 23:50 05:18 05:18 WBC RBC Hgb Hct MCV MCHC RDW Plt Count Lymph % (Auto) [place] % (Auto) Eos % (Auto) Lymph # (Auto) [place] # (Auto) Eos # (Auto) Seg Neutrophils % Seg Neuts % (Manual) Lymphocytes % (Manual) Monocytes % (Manual) Seg Neutrophils # Seg Neutrophils # Man Lymphocytes # (Manual) Monocytes # (Manual) PT INR ABG pH POC ABG pCO2 POC ABG pO2 ABG pO2 ABG HCO3 ABG O2 Saturation ABG Base Excess ABG Hemoglobin ABG Oxyhemoglobin ABG Sodium ABG Potassium ABG Chloride ABG Glucose Oxyhemoglobin Sodium 136 L Potassium Chloride 94.6 L Carbon Dioxide 19 L BUN 145 H Creatinine 10.6 H Glucose 152 H POC Glucose 151 H Lactic Acid Calcium Phosphorus 6.00 H D Magnesium Total Bilirubin AST ALT Alkaline Phosphatase Total Protein Albumin Triglycerides Arterial Blood Glucose Arterial Blood Ionized Calcium Digoxin 0.8 L Crossmatch 01/11/21 01/11/21 01/11/21 05:18 05:19 11:28 WBC 17.4 H RBC 3.34 L Hgb 10.2 L Hct 29.7 L MCV MCHC RDW 15.9 H Plt Count Lymph % (Auto) [place] % (Auto) Eos % (Auto) Lymph # (Auto) [place] # (Auto) Eos # (Auto) Seg Neutrophils % Seg Neuts % (Manual) Lymphocytes % (Manual) Monocytes % (Manual) Seg Neutrophils # Seg Neutrophils # Man Lymphocytes # (Manual) Monocytes # (Manual) PT INR ABG pH POC ABG pCO2 POC ABG pO2 ABG pO2 ABG HCO3 ABG O2 Saturation ABG Base Excess ABG Hemoglobin ABG Oxyhemoglobin ABG Sodium ABG Potassium ABG Chloride ABG Glucose Oxyhemoglobin Sodium Potassium Chloride Carbon Dioxide BUN Creatinine Glucose POC Glucose 149 H 178 H Lactic Acid Calcium Phosphorus Magnesium Total Bilirubin AST ALT Alkaline Phosphatase Total Protein Albumin Triglycerides Arterial Blood Glucose Arterial Blood Ionized Calcium Digoxin Crossmatch 01/11/21 01/11/21 01/12/21 17:31 23:14 05:18 WBC RBC Hgb Hct MCV MCHC RDW Plt Count Lymph % (Auto) [place] % (Auto) Eos % (Auto) Lymph # (Auto) [place] # (Auto) Eos # (Auto) Seg Neutrophils % Seg Neuts % (Manual) Lymphocytes % (Manual) Monocytes % (Manual) Seg Neutrophils # Seg Neutrophils # Man Lymphocytes # (Manual) Monocytes # (Manual) PT INR ABG pH POC ABG pCO2 POC ABG pO2 ABG pO2 ABG HCO3 ABG O2 Saturation ABG Base Excess ABG Hemoglobin ABG Oxyhemoglobin ABG Sodium ABG Potassium ABG Chloride ABG Glucose Oxyhemoglobin Sodium Potassium Chloride Carbon Dioxide BUN Creatinine Glucose POC Glucose 158 H 145 H 148 H Lactic Acid Calcium Phosphorus Magnesium Total Bilirubin AST ALT Alkaline Phosphatase Total Protein Albumin Triglycerides Arterial Blood Glucose Arterial Blood Ionized Calcium Digoxin Crossmatch 01/12/21 01/12/21 01/12/21 06:50 10:45 13:34 WBC RBC Hgb Hct MCV MCHC RDW Plt Count Lymph % (Auto) [place] % (Auto) Eos % (Auto) Lymph # (Auto) [place] # (Auto) Eos # (Auto) Seg Neutrophils % Seg Neuts % (Manual) Lymphocytes % (Manual) Monocytes % (Manual) Seg Neutrophils # Seg Neutrophils # Man Lymphocytes # (Manual) Monocytes # (Manual) PT INR ABG pH POC ABG pCO2 POC ABG pO2 ABG pO2 ABG HCO3 ABG O2 Saturation ABG Base Excess ABG Hemoglobin ABG Oxyhemoglobin ABG Sodium ABG Potassium ABG Chloride ABG Glucose Oxyhemoglobin Sodium Potassium 2.9 L* D Chloride 94.8 L Carbon Dioxide BUN 102 H Creatinine 8.3 H Glucose 139 H POC Glucose 151 H 134 H Lactic Acid Calcium 8.1 L Phosphorus 5.00 H Magnesium Total Bilirubin AST ALT Alkaline Phosphatase Total Protein Albumin Triglycerides Arterial Blood Glucose Arterial Blood Ionized Calcium Digoxin Crossmatch 01/12/21 01/12/21 01/13/21 16:59 23:06 03:45 WBC RBC Hgb Hct MCV MCHC RDW Plt Count Lymph % (Auto) [place] % (Auto) Eos % (Auto) Lymph # (Auto) [place] # (Auto) Eos # (Auto) Seg Neutrophils % Seg Neuts % (Manual) Lymphocytes % (Manual) Monocytes % (Manual) Seg Neutrophils # Seg Neutrophils # Man Lymphocytes # (Manual) Monocytes # (Manual) PT INR ABG pH POC ABG pCO2 POC ABG pO2 ABG pO2 ABG HCO3 ABG O2 Saturation ABG Base Excess ABG Hemoglobin ABG Oxyhemoglobin ABG Sodium ABG Potassium ABG Chloride ABG Glucose Oxyhemoglobin Sodium 136 L Potassium 3.4 L Chloride 92.6 L Carbon Dioxide BUN 134 H Creatinine 10.4 H Glucose 126 H POC Glucose 108 H 135 H Lactic Acid Calcium 8.3 L Phosphorus 5.60 H Magnesium 1.50 L Total Bilirubin AST ALT Alkaline Phosphatase Total Protein Albumin Triglycerides Arterial Blood Glucose Arterial Blood Ionized Calcium Digoxin Crossmatch 01/13/21 01/13/21 01/13/21 03:45 05:55 11:59 WBC 17.6 H RBC 3.33 L Hgb 10.2 L Hct 29.5 L MCV MCHC 35 H RDW 15.5 H Plt Count Lymph % (Auto) 4.4 L [place] % (Auto) 10.3 H Eos % (Auto) Lymph # (Auto) 0.8 L [place] # (Auto) 1.8 H Eos # (Auto) Seg Neutrophils % 84.2 H Seg Neuts % (Manual) Lymphocytes % (Manual) Monocytes % (Manual) Seg Neutrophils # 14.8 H Seg Neutrophils # Man Lymphocytes # (Manual) Monocytes # (Manual) PT INR ABG pH POC ABG pCO2 POC ABG pO2 ABG pO2 ABG HCO3 ABG O2 Saturation ABG Base Excess ABG Hemoglobin ABG Oxyhemoglobin ABG Sodium ABG Potassium ABG Chloride ABG Glucose Oxyhemoglobin Sodium Potassium Chloride Carbon Dioxide BUN Creatinine Glucose POC Glucose 134 H 141 H Lactic Acid Calcium Phosphorus Magnesium Total Bilirubin AST ALT Alkaline Phosphatase Total Protein Albumin Triglycerides Arterial Blood Glucose Arterial Blood Ionized Calcium Digoxin Crossmatch 01/13/21 01/14/21 01/14/21 23:09 05:39 05:57 WBC RBC Hgb Hct MCV MCHC RDW Plt Count Lymph % (Auto) [place] % (Auto) Eos % (Auto) Lymph # (Auto) [place] # (Auto) Eos # (Auto) Seg Neutrophils % Seg Neuts % (Manual) Lymphocytes % (Manual) Monocytes % (Manual) Seg Neutrophils # Seg Neutrophils # Man Lymphocytes # (Manual) Monocytes # (Manual) PT INR ABG pH POC ABG pCO2 POC ABG pO2 ABG pO2 ABG HCO3 ABG O2 Saturation ABG Base Excess ABG Hemoglobin ABG Oxyhemoglobin ABG Sodium ABG Potassium ABG Chloride ABG Glucose Oxyhemoglobin Sodium Potassium Chloride 97.6 L Carbon Dioxide BUN 81 H Creatinine 7.6 H Glucose 193 H POC Glucose 106 H 190 H Lactic Acid Calcium 8.2 L Phosphorus 4.60 H Magnesium Total Bilirubin AST ALT Alkaline Phosphatase Total Protein Albumin Triglycerides Arterial Blood Glucose Arterial Blood Ionized Calcium Digoxin Crossmatch 01/14/21 01/14/21 01/14/21 10:00 16:56 16:59 WBC 17.0 H RBC 3.10 L Hgb 9.6 L Hct 27.4 L MCV MCHC 35 H RDW 15.6 H Plt Count Lymph % (Auto) [place] % (Auto) Eos % (Auto) Lymph # (Auto) [place] # (Auto) Eos # (Auto) Seg Neutrophils % Seg Neuts % (Manual) Lymphocytes % (Manual) Monocytes % (Manual) Seg Neutrophils # Seg Neutrophils # Man Lymphocytes # (Manual) Monocytes # (Manual) PT INR ABG pH POC ABG pCO2 POC ABG pO2 ABG pO2 ABG HCO3 ABG O2 Saturation ABG Base Excess ABG Hemoglobin ABG Oxyhemoglobin ABG Sodium ABG Potassium ABG Chloride ABG Glucose Oxyhemoglobin Sodium Potassium Chloride Carbon Dioxide BUN Creatinine Glucose POC Glucose 37 L 34 L Lactic Acid Calcium Phosphorus Magnesium Total Bilirubin AST ALT Alkaline Phosphatase Total Protein Albumin Triglycerides Arterial Blood Glucose Arterial Blood Ionized Calcium Digoxin Crossmatch 01/14/21 01/14/21 01/14/21 17:02 18:34 23:17 WBC RBC Hgb Hct MCV MCHC RDW Plt Count Lymph % (Auto) [place] % (Auto) Eos % (Auto) Lymph # (Auto) [place] # (Auto) Eos # (Auto) Seg Neutrophils % Seg Neuts % (Manual) Lymphocytes % (Manual) Monocytes % (Manual) Seg Neutrophils # Seg Neutrophils # Man Lymphocytes # (Manual) Monocytes # (Manual) PT INR ABG pH POC ABG pCO2 POC ABG pO2 ABG pO2 ABG HCO3 ABG O2 Saturation ABG Base Excess ABG Hemoglobin ABG Oxyhemoglobin ABG Sodium ABG Potassium ABG Chloride ABG Glucose Oxyhemoglobin Sodium Potassium Chloride Carbon Dioxide BUN Creatinine Glucose POC Glucose 35 L 143 H 53 L Lactic Acid Calcium Phosphorus Magnesium Total Bilirubin AST ALT Alkaline Phosphatase Total Protein Albumin Triglycerides Arterial Blood Glucose Arterial Blood Ionized Calcium Digoxin Crossmatch 01/15/21 01/15/21 01/15/21 00:34 04:00 04:00 WBC 15.9 H RBC 3.02 L Hgb 9.3 L Hct 27.3 L MCV MCHC RDW 15.6 H Plt Count Lymph % (Auto) [place] % (Auto) Eos % (Auto) Lymph # (Auto) [place] # (Auto) Eos # (Auto) Seg Neutrophils % Seg Neuts % (Manual) Lymphocytes % (Manual) Monocytes % (Manual) Seg Neutrophils # Seg Neutrophils # Man Lymphocytes # (Manual) Monocytes # (Manual) PT INR ABG pH POC ABG pCO2 POC ABG pO2 ABG pO2 ABG HCO3 ABG O2 Saturation ABG Base Excess ABG Hemoglobin ABG Oxyhemoglobin ABG Sodium ABG Potassium ABG Chloride ABG Glucose Oxyhemoglobin Sodium 136 L Potassium Chloride 94.3 L Carbon Dioxide BUN 117 H Creatinine 9.9 H Glucose 217 H POC Glucose 181 H Lactic Acid Calcium 8.3 L Phosphorus Magnesium Total Bilirubin AST ALT Alkaline Phosphatase Total Protein Albumin Triglycerides Arterial Blood Glucose Arterial Blood Ionized Calcium Digoxin Crossmatch 01/15/21 01/15/21 01/15/21 05:29 11:51 23:13 WBC RBC Hgb Hct MCV MCHC RDW Plt Count Lymph % (Auto) [place] % (Auto) Eos % (Auto) Lymph # (Auto) [place] # (Auto) Eos # (Auto) Seg Neutrophils % Seg Neuts % (Manual) Lymphocytes % (Manual) Monocytes % (Manual) Seg Neutrophils # Seg Neutrophils # Man Lymphocytes # (Manual) Monocytes # (Manual) PT INR ABG pH POC ABG pCO2 POC ABG pO2 ABG pO2 ABG HCO3 ABG O2 Saturation ABG Base Excess ABG Hemoglobin ABG Oxyhemoglobin ABG Sodium ABG Potassium ABG Chloride ABG Glucose Oxyhemoglobin Sodium Potassium Chloride Carbon Dioxide BUN Creatinine Glucose POC Glucose 221 H 62 L 154 H Lactic Acid Calcium Phosphorus Magnesium Total Bilirubin AST ALT Alkaline Phosphatase Total Protein Albumin Triglycerides Arterial Blood Glucose Arterial Blood Ionized Calcium Digoxin Crossmatch 01/16/21 01/16/21 01/16/21 05:04 06:44 06:44 WBC 14.8 H RBC 2.76 L Hgb 8.2 L Hct 24.8 L MCV MCHC RDW 15.6 H Plt Count Lymph % (Auto) [place] % (Auto) Eos % (Auto) Lymph # (Auto) [place] # (Auto) Eos # (Auto) Seg Neutrophils % Seg Neuts % (Manual) Lymphocytes % (Manual) Monocytes % (Manual) Seg Neutrophils # Seg Neutrophils # Man Lymphocytes # (Manual) Monocytes # (Manual) PT INR ABG pH POC ABG pCO2 POC ABG pO2 ABG pO2 ABG HCO3 ABG O2 Saturation ABG Base Excess ABG Hemoglobin ABG Oxyhemoglobin ABG Sodium ABG Potassium ABG Chloride ABG Glucose Oxyhemoglobin Sodium 133 L Potassium Chloride 92.3 L Carbon Dioxide 20 L BUN 160 H Creatinine 12.1 H Glucose 177 H POC Glucose 168 H Lactic Acid Calcium 8.1 L Phosphorus 5.50 H Magnesium 2.50 H Total Bilirubin AST ALT Alkaline Phosphatase Total Protein Albumin Triglycerides Arterial Blood Glucose Arterial Blood Ionized Calcium Digoxin Crossmatch 01/16/21 01/17/21 01/17/21 23:20 05:14 05:14 WBC 12.7 H RBC 2.75 L Hgb 8.5 L Hct 24.6 L MCV MCHC 35 H RDW 15.4 H Plt Count Lymph % (Auto) [place] % (Auto) Eos % (Auto) Lymph # (Auto) [place] # (Auto) Eos # (Auto) Seg Neutrophils % Seg Neuts % (Manual) Lymphocytes % (Manual) Monocytes % (Manual) Seg Neutrophils # Seg Neutrophils # Man Lymphocytes # (Manual) Monocytes # (Manual) PT INR ABG pH POC ABG pCO2 POC ABG pO2 ABG pO2 ABG HCO3 ABG O2 Saturation ABG Base Excess ABG Hemoglobin ABG Oxyhemoglobin ABG Sodium ABG Potassium ABG Chloride ABG Glucose Oxyhemoglobin Sodium Potassium Chloride 97.9 L Carbon Dioxide BUN 84 H Creatinine 7.8 H Glucose 176 H POC Glucose 153 H Lactic Acid Calcium 8.0 L Phosphorus Magnesium Total Bilirubin AST ALT Alkaline Phosphatase Total Protein Albumin Triglycerides Arterial Blood Glucose Arterial Blood Ionized Calcium Digoxin Crossmatch 01/17/21 01/17/21 01/18/21 05:33 11:58 00:07 WBC RBC Hgb Hct MCV MCHC RDW Plt Count Lymph % (Auto) [place] % (Auto) Eos % (Auto) Lymph # (Auto) [place] # (Auto) Eos # (Auto) Seg Neutrophils % Seg Neuts % (Manual) Lymphocytes % (Manual) Monocytes % (Manual) Seg Neutrophils # Seg Neutrophils # Man Lymphocytes # (Manual) Monocytes # (Manual) PT INR ABG pH POC ABG pCO2 POC ABG pO2 ABG pO2 ABG HCO3 ABG O2 Saturation ABG Base Excess ABG Hemoglobin ABG Oxyhemoglobin ABG Sodium ABG Potassium ABG Chloride ABG Glucose Oxyhemoglobin Sodium Potassium Chloride Carbon Dioxide BUN Creatinine Glucose POC Glucose 162 H 64 L 146 H Lactic Acid Calcium Phosphorus Magnesium Total Bilirubin AST ALT Alkaline Phosphatase Total Protein Albumin Triglycerides Arterial Blood Glucose Arterial Blood Ionized Calcium Digoxin Crossmatch 01/18/21 01/18/21 01/18/21 04:19 04:19 06:15 WBC 15.6 H RBC 3.00 L Hgb 9.2 L Hct 26.8 L MCV MCHC 35 H RDW 15.6 H Plt Count Lymph % (Auto) [place] % (Auto) Eos % (Auto) Lymph # (Auto) [place] # (Auto) Eos # (Auto) Seg Neutrophils % Seg Neuts % (Manual) Lymphocytes % (Manual) Monocytes % (Manual) Seg Neutrophils # Seg Neutrophils # Man Lymphocytes # (Manual) Monocytes # (Manual) PT INR ABG pH POC ABG pCO2 POC ABG pO2 ABG pO2 ABG HCO3 ABG O2 Saturation ABG Base Excess ABG Hemoglobin ABG Oxyhemoglobin ABG Sodium ABG Potassium ABG Chloride ABG Glucose Oxyhemoglobin Sodium Potassium Chloride 96.2 L Carbon Dioxide BUN 117 H Creatinine 10.0 H Glucose 165 H POC Glucose 189 H Lactic Acid Calcium Phosphorus 4.70 H D Magnesium Total Bilirubin AST ALT Alkaline Phosphatase Total Protein Albumin Triglycerides Arterial Blood Glucose Arterial Blood Ionized Calcium Digoxin Crossmatch 01/18/21 01/18/21 01/18/21 11:53 13:44 15:08 WBC RBC Hgb Hct MCV MCHC RDW Plt Count Lymph % (Auto) [place] % (Auto) Eos % (Auto) Lymph # (Auto) [place] # (Auto) Eos # (Auto) Seg Neutrophils % Seg Neuts % (Manual) Lymphocytes % (Manual) Monocytes % (Manual) Seg Neutrophils # Seg Neutrophils # Man Lymphocytes # (Manual) Monocytes # (Manual) PT INR ABG pH POC ABG pCO2 POC ABG pO2 ABG pO2 ABG HCO3 ABG O2 Saturation ABG Base Excess ABG Hemoglobin ABG Oxyhemoglobin ABG Sodium ABG Potassium ABG Chloride ABG Glucose Oxyhemoglobin Sodium Potassium Chloride Carbon Dioxide BUN Creatinine Glucose POC Glucose 69 L 50 L 56 L Lactic Acid Calcium Phosphorus Magnesium Total Bilirubin AST ALT Alkaline Phosphatase Total Protein Albumin Triglycerides Arterial Blood Glucose Arterial Blood Ionized Calcium Digoxin Crossmatch 01/18/21 01/19/21 01/19/21 17:50 04:55 08:56 WBC 12.7 H RBC 2.89 L Hgb 8.7 L Hct 25.6 L MCV MCHC RDW 15.5 H Plt Count Lymph % (Auto) [place] % (Auto) Eos % (Auto) Lymph # (Auto) [place] # (Auto) Eos # (Auto) Seg Neutrophils % Seg Neuts % (Manual) Lymphocytes % (Manual) Monocytes % (Manual) Seg Neutrophils # Seg Neutrophils # Man Lymphocytes # (Manual) Monocytes # (Manual) PT INR ABG pH POC ABG pCO2 POC ABG pO2 ABG pO2 ABG HCO3 ABG O2 Saturation ABG Base Excess ABG Hemoglobin ABG Oxyhemoglobin ABG Sodium ABG Potassium ABG Chloride ABG Glucose Oxyhemoglobin Sodium Potassium Chloride Carbon Dioxide BUN Creatinine Glucose POC Glucose 137 H 120 H Lactic Acid Calcium Phosphorus Magnesium Total Bilirubin AST ALT Alkaline Phosphatase Total Protein Albumin Triglycerides Arterial Blood Glucose Arterial Blood Ionized Calcium Digoxin Crossmatch 01/19/21 01/19/21 01/19/21 08:56 11:33 17:32 WBC RBC Hgb Hct MCV MCHC RDW Plt Count Lymph % (Auto) [place] % (Auto) Eos % (Auto) Lymph # (Auto) [place] # (Auto) Eos # (Auto) Seg Neutrophils % Seg Neuts % (Manual) Lymphocytes % (Manual) Monocytes % (Manual) Seg Neutrophils # Seg Neutrophils # Man Lymphocytes # (Manual) Monocytes # (Manual) PT INR ABG pH POC ABG pCO2 POC ABG pO2 ABG pO2 ABG HCO3 ABG O2 Saturation ABG Base Excess ABG Hemoglobin ABG Oxyhemoglobin ABG Sodium ABG Potassium ABG Chloride ABG Glucose Oxyhemoglobin Sodium Potassium Chloride Carbon Dioxide BUN 66 H Creatinine 7.7 H Glucose 119 H POC Glucose 160 H 125 H Lactic Acid Calcium 8.3 L Phosphorus Magnesium Total Bilirubin AST ALT Alkaline Phosphatase Total Protein Albumin Triglycerides Arterial Blood Glucose Arterial Blood Ionized Calcium Digoxin Crossmatch 01/19/21 01/20/21 01/20/21 23:30 03:35 03:35 WBC 12.0 H RBC 2.62 L Hgb 8.3 L Hct 23.2 L MCV MCHC 36 H RDW Plt Count Lymph % (Auto) [place] % (Auto) Eos % (Auto) Lymph # (Auto) [place] # (Auto) Eos # (Auto) Seg Neutrophils % Seg Neuts % (Manual) Lymphocytes % (Manual) Monocytes % (Manual) Seg Neutrophils # Seg Neutrophils # Man Lymphocytes # (Manual) Monocytes # (Manual) PT INR ABG pH POC ABG pCO2 POC ABG pO2 ABG pO2 ABG HCO3 ABG O2 Saturation ABG Base Excess ABG Hemoglobin ABG Oxyhemoglobin ABG Sodium ABG Potassium ABG Chloride ABG Glucose Oxyhemoglobin Sodium Potassium Chloride Carbon Dioxide BUN 46 H Creatinine 5.9 H Glucose 128 H POC Glucose 127 H Lactic Acid Calcium Phosphorus Magnesium Total Bilirubin AST ALT Alkaline Phosphatase Total Protein Albumin Triglycerides Arterial Blood Glucose Arterial Blood Ionized Calcium Digoxin Crossmatch 01/20/21 01/20/21 01/20/21 06:19 11:55 18:00 WBC RBC Hgb Hct MCV MCHC RDW Plt Count Lymph % (Auto) [place] % (Auto) Eos % (Auto) Lymph # (Auto) [place] # (Auto) Eos # (Auto) Seg Neutrophils % Seg Neuts % (Manual) Lymphocytes % (Manual) Monocytes % (Manual) Seg Neutrophils # Seg Neutrophils # Man Lymphocytes # (Manual) Monocytes # (Manual) PT INR ABG pH POC ABG pCO2 POC ABG pO2 ABG pO2 ABG HCO3 ABG O2 Saturation ABG Base Excess ABG Hemoglobin ABG Oxyhemoglobin ABG Sodium ABG Potassium ABG Chloride ABG Glucose Oxyhemoglobin Sodium Potassium Chloride Carbon Dioxide BUN Creatinine Glucose POC Glucose 119 H 128 H 115 H Lactic Acid Calcium Phosphorus Magnesium Total Bilirubin AST ALT Alkaline Phosphatase Total Protein Albumin Triglycerides Arterial Blood Glucose Arterial Blood Ionized Calcium Digoxin Crossmatch 01/20/21 01/21/21 01/21/21 23:26 04:39 05:27 WBC RBC Hgb Hct MCV MCHC RDW Plt Count Lymph % (Auto) [place] % (Auto) Eos % (Auto) Lymph # (Auto) [place] # (Auto) Eos # (Auto) Seg Neutrophils % Seg Neuts % (Manual) Lymphocytes % (Manual) Monocytes % (Manual) Seg Neutrophils # Seg Neutrophils # Man Lymphocytes # (Manual) Monocytes # (Manual) PT INR ABG pH POC ABG pCO2 POC ABG pO2 ABG pO2 ABG HCO3 ABG O2 Saturation ABG Base Excess ABG Hemoglobin ABG Oxyhemoglobin ABG Sodium ABG Potassium ABG Chloride ABG Glucose Oxyhemoglobin Sodium Potassium Chloride Carbon Dioxide BUN 37 H Creatinine 5.3 H Glucose 109 H POC Glucose 108 H 107 H Lactic Acid Calcium Phosphorus 2.10 L Magnesium 1.50 L Total Bilirubin AST ALT Alkaline Phosphatase 143 H Total Protein 6.1 L Albumin 3.0 L Triglycerides Arterial Blood Glucose Arterial Blood Ionized Calcium Digoxin Crossmatch 01/21/21 01/21/21 01/22/21 11:35 17:53 00:20 WBC RBC Hgb Hct MCV MCHC RDW Plt Count Lymph % (Auto) [place] % (Auto) Eos % (Auto) Lymph # (Auto) [place] # (Auto) Eos # (Auto) Seg Neutrophils % Seg Neuts % (Manual) Lymphocytes % (Manual) Monocytes % (Manual) Seg Neutrophils # Seg Neutrophils # Man Lymphocytes # (Manual) Monocytes # (Manual) PT INR ABG pH POC ABG pCO2 POC ABG pO2 ABG pO2 ABG HCO3 ABG O2 Saturation ABG Base Excess ABG Hemoglobin ABG Oxyhemoglobin ABG Sodium ABG Potassium ABG Chloride ABG Glucose Oxyhemoglobin Sodium Potassium Chloride Carbon Dioxide BUN Creatinine Glucose POC Glucose 133 H 124 H 122 H Lactic Acid Calcium Phosphorus Magnesium Total Bilirubin AST ALT Alkaline Phosphatase Total Protein Albumin Triglycerides Arterial Blood Glucose Arterial Blood Ionized Calcium Digoxin Crossmatch 01/22/21 01/22/21 01/22/21 04:00 06:09 11:36 WBC RBC Hgb Hct MCV MCHC RDW Plt Count Lymph % (Auto) [place] % (Auto) Eos % (Auto) Lymph # (Auto) [place] # (Auto) Eos # (Auto) Seg Neutrophils % Seg Neuts % (Manual) Lymphocytes % (Manual) Monocytes % (Manual) Seg Neutrophils # Seg Neutrophils # Man Lymphocytes # (Manual) Monocytes # (Manual) PT INR ABG pH POC ABG pCO2 POC ABG pO2 ABG pO2 ABG HCO3 ABG O2 Saturation ABG Base Excess ABG Hemoglobin ABG Oxyhemoglobin ABG Sodium ABG Potassium ABG Chloride ABG Glucose Oxyhemoglobin Sodium Potassium Chloride Carbon Dioxide BUN 65 H Creatinine 8.2 H D Glucose 111 H POC Glucose 122 H 132 H Lactic Acid Calcium Phosphorus Magnesium Total Bilirubin AST ALT Alkaline Phosphatase Total Protein Albumin Triglycerides Arterial Blood Glucose Arterial Blood Ionized Calcium Digoxin Crossmatch 01/22/21 01/22/21 01/23/21 17:17 23:18 05:29 WBC RBC Hgb Hct MCV MCHC RDW Plt Count Lymph % (Auto) [place] % (Auto) Eos % (Auto) Lymph # (Auto) [place] # (Auto) Eos # (Auto) Seg Neutrophils % Seg Neuts % (Manual) Lymphocytes % (Manual) Monocytes % (Manual) Seg Neutrophils # Seg Neutrophils # Man Lymphocytes # (Manual) Monocytes # (Manual) PT INR ABG pH POC ABG pCO2 POC ABG pO2 ABG pO2 ABG HCO3 ABG O2 Saturation ABG Base Excess ABG Hemoglobin ABG Oxyhemoglobin ABG Sodium ABG Potassium ABG Chloride ABG Glucose Oxyhemoglobin Sodium Potassium Chloride Carbon Dioxide BUN Creatinine Glucose POC Glucose 135 H 128 H 129 H Lactic Acid Calcium Phosphorus Magnesium Total Bilirubin AST ALT Alkaline Phosphatase Total Protein Albumin Triglycerides Arterial Blood Glucose Arterial Blood Ionized Calcium Digoxin Crossmatch 01/23/21 01/23/21 01/23/21 05:45 11:28 16:39 WBC RBC Hgb Hct MCV MCHC RDW Plt Count Lymph % (Auto) [place] % (Auto) Eos % (Auto) Lymph # (Auto) [place] # (Auto) Eos # (Auto) Seg Neutrophils % Seg Neuts % (Manual) Lymphocytes % (Manual) Monocytes % (Manual) Seg Neutrophils # Seg Neutrophils # Man Lymphocytes # (Manual) Monocytes # (Manual) PT INR ABG pH POC ABG pCO2 POC ABG pO2 ABG pO2 ABG HCO3 ABG O2 Saturation ABG Base Excess ABG Hemoglobin ABG Oxyhemoglobin ABG Sodium ABG Potassium ABG Chloride ABG Glucose Oxyhemoglobin Sodium Potassium Chloride Carbon Dioxide BUN 96 H Creatinine 10.8 H Glucose 124 H POC Glucose 160 H 116 H Lactic Acid Calcium Phosphorus Magnesium 2.50 H Total Bilirubin AST ALT Alkaline Phosphatase Total Protein Albumin Triglycerides Arterial Blood Glucose Arterial Blood Ionized Calcium Digoxin Crossmatch 01/24/21 01/24/21 01/24/21 00:02 04:45 05:01 WBC RBC Hgb Hct MCV MCHC RDW Plt Count Lymph % (Auto) [place] % (Auto) Eos % (Auto) Lymph # (Auto) [place] # (Auto) Eos # (Auto) Seg Neutrophils % Seg Neuts % (Manual) Lymphocytes % (Manual) Monocytes % (Manual) Seg Neutrophils # Seg Neutrophils # Man Lymphocytes # (Manual) Monocytes # (Manual) PT INR ABG pH POC ABG pCO2 POC ABG pO2 ABG pO2 ABG HCO3 ABG O2 Saturation ABG Base Excess ABG Hemoglobin ABG Oxyhemoglobin ABG Sodium ABG Potassium ABG Chloride ABG Glucose Oxyhemoglobin Sodium Potassium 3.5 L Chloride Carbon Dioxide BUN 56 H Creatinine 7.7 H Glucose 102 H POC Glucose 120 H 108 H Lactic Acid Calcium Phosphorus Magnesium Total Bilirubin AST ALT Alkaline Phosphatase Total Protein Albumin Triglycerides Arterial Blood Glucose Arterial Blood Ionized Calcium Digoxin Crossmatch 01/24/21 01/24/21 01/24/21 12:03 17:07 23:55 WBC RBC Hgb Hct MCV MCHC RDW Plt Count Lymph % (Auto) [place] % (Auto) Eos % (Auto) Lymph # (Auto) [place] # (Auto) Eos # (Auto) Seg Neutrophils % Seg Neuts % (Manual) Lymphocytes % (Manual) Monocytes % (Manual) Seg Neutrophils # Seg Neutrophils # Man Lymphocytes # (Manual) Monocytes # (Manual) PT INR ABG pH POC ABG pCO2 POC ABG pO2 ABG pO2 ABG HCO3 ABG O2 Saturation ABG Base Excess ABG Hemoglobin ABG Oxyhemoglobin ABG Sodium ABG Potassium ABG Chloride ABG Glucose Oxyhemoglobin Sodium Potassium Chloride Carbon Dioxide BUN Creatinine Glucose POC Glucose 136 H 122 H 112 H Lactic Acid Calcium Phosphorus Magnesium Total Bilirubin AST ALT Alkaline Phosphatase Total Protein Albumin Triglycerides Arterial Blood Glucose Arterial Blood Ionized Calcium Digoxin Crossmatch 01/25/21 01/25/21 01/25/21 05:15 06:00 07:47 WBC RBC Hgb Hct MCV MCHC RDW Plt Count Lymph % (Auto) [place] % (Auto) Eos % (Auto) Lymph # (Auto) [place] # (Auto) Eos # (Auto) Seg Neutrophils % Seg Neuts % (Manual) Lymphocytes % (Manual) Monocytes % (Manual) Seg Neutrophils # Seg Neutrophils # Man Lymphocytes # (Manual) Monocytes # (Manual) PT INR ABG pH POC ABG pCO2 POC ABG pO2 ABG pO2 ABG HCO3 ABG O2 Saturation ABG Base Excess ABG Hemoglobin ABG Oxyhemoglobin ABG Sodium ABG Potassium ABG Chloride ABG Glucose Oxyhemoglobin Sodium 116 L* D Potassium Chloride 79.1 L Carbon Dioxide 17 L D BUN 72 H Creatinine 7.4 H Glucose 2242 H* POC Glucose 117 H 138 H Lactic Acid Calcium 6.7 L D Phosphorus Magnesium Total Bilirubin AST ALT Alkaline Phosphatase Total Protein Albumin Triglycerides Arterial Blood Glucose Arterial Blood Ionized Calcium Digoxin Crossmatch 01/25/21 01/25/21 01/25/21 08:35 11:49 18:42 WBC RBC Hgb Hct MCV MCHC RDW Plt Count Lymph % (Auto) [place] % (Auto) Eos % (Auto) Lymph # (Auto) [place] # (Auto) Eos # (Auto) Seg Neutrophils % Seg Neuts % (Manual) Lymphocytes % (Manual) Monocytes % (Manual) Seg Neutrophils # Seg Neutrophils # Man Lymphocytes # (Manual) Monocytes # (Manual) PT INR ABG pH POC ABG pCO2 POC ABG pO2 ABG pO2 ABG HCO3 ABG O2 Saturation ABG Base Excess ABG Hemoglobin ABG Oxyhemoglobin ABG Sodium ABG Potassium ABG Chloride ABG Glucose Oxyhemoglobin Sodium Potassium Chloride 97.0 L Carbon Dioxide BUN 92 H Creatinine 11.0 H Glucose 125 H POC Glucose 130 H 122 H Lactic Acid Calcium Phosphorus Magnesium Total Bilirubin AST ALT Alkaline Phosphatase Total Protein Albumin Triglycerides Arterial Blood Glucose Arterial Blood Ionized Calcium Digoxin Crossmatch 01/25/21 01/26/21 01/26/21 23:37 04:19 05:48 WBC RBC Hgb Hct MCV MCHC RDW Plt Count Lymph % (Auto) [place] % (Auto) Eos % (Auto) Lymph # (Auto) [place] # (Auto) Eos # (Auto) Seg Neutrophils % Seg Neuts % (Manual) Lymphocytes % (Manual) Monocytes % (Manual) Seg Neutrophils # Seg Neutrophils # Man Lymphocytes # (Manual) Monocytes # (Manual) PT INR ABG pH POC ABG pCO2 POC ABG pO2 ABG pO2 ABG HCO3 ABG O2 Saturation ABG Base Excess ABG Hemoglobin ABG Oxyhemoglobin ABG Sodium ABG Potassium ABG Chloride ABG Glucose Oxyhemoglobin Sodium Potassium Chloride Carbon Dioxide BUN 49 H Creatinine 7.1 H Glucose POC Glucose 144 H 125 H Lactic Acid Calcium Phosphorus Magnesium 1.50 L Total Bilirubin AST ALT Alkaline Phosphatase Total Protein Albumin Triglycerides Arterial Blood Glucose Arterial Blood Ionized Calcium Digoxin Crossmatch 01/26/21 01/26/21 01/27/21 11:16 18:35 00:01 WBC RBC Hgb Hct MCV MCHC RDW Plt Count Lymph % (Auto) [place] % (Auto) Eos % (Auto) Lymph # (Auto) [place] # (Auto) Eos # (Auto) Seg Neutrophils % Seg Neuts % (Manual) Lymphocytes % (Manual) Monocytes % (Manual) Seg Neutrophils # Seg Neutrophils # Man Lymphocytes # (Manual) Monocytes # (Manual) PT INR ABG pH POC ABG pCO2 POC ABG pO2 ABG pO2 ABG HCO3 ABG O2 Saturation ABG Base Excess ABG Hemoglobin ABG Oxyhemoglobin ABG Sodium ABG Potassium ABG Chloride ABG Glucose Oxyhemoglobin Sodium Potassium Chloride Carbon Dioxide BUN Creatinine Glucose POC Glucose 122 H 127 H 130 H Lactic Acid Calcium Phosphorus Magnesium Total Bilirubin AST ALT Alkaline Phosphatase Total Protein Albumin Triglycerides Arterial Blood Glucose Arterial Blood Ionized Calcium Digoxin Crossmatch 01/27/21 01/27/21 01/27/21 04:19 04:19 05:25 WBC 12.4 H RBC 2.79 L Hgb 8.6 L Hct 25.1 L MCV MCHC RDW 16.1 H Plt Count Lymph % (Auto) 7.5 L [place] % (Auto) 9.3 H Eos % (Auto) 4.8 H Lymph # (Auto) 0.9 L [place] # (Auto) 1.1 H Eos # (Auto) 0.6 H Seg Neutrophils % 78.0 H Seg Neuts % (Manual) Lymphocytes % (Manual) Monocytes % (Manual) Seg Neutrophils # 9.7 H Seg Neutrophils # Man Lymphocytes # (Manual) Monocytes # (Manual) PT INR ABG pH POC ABG pCO2 POC ABG pO2 ABG pO2 ABG HCO3 ABG O2 Saturation ABG Base Excess ABG Hemoglobin ABG Oxyhemoglobin ABG Sodium ABG Potassium ABG Chloride ABG Glucose Oxyhemoglobin Sodium Potassium Chloride 97.9 L Carbon Dioxide BUN 76 H Creatinine 9.9 H Glucose 111 H POC Glucose 129 H Lactic Acid Calcium Phosphorus Magnesium Total Bilirubin AST ALT Alkaline Phosphatase Total Protein Albumin Triglycerides Arterial Blood Glucose Arterial Blood Ionized Calcium Digoxin Crossmatch 01/27/21 01/27/21 01/27/21 11:30 17:08 23:28 WBC RBC Hgb Hct MCV MCHC RDW Plt Count Lymph % (Auto) [place] % (Auto) Eos % (Auto) Lymph # (Auto) [place] # (Auto) Eos # (Auto) Seg Neutrophils % Seg Neuts % (Manual) Lymphocytes % (Manual) Monocytes % (Manual) Seg Neutrophils # Seg Neutrophils # Man Lymphocytes # (Manual) Monocytes # (Manual) PT INR ABG pH POC ABG pCO2 POC ABG pO2 ABG pO2 ABG HCO3 ABG O2 Saturation ABG Base Excess ABG Hemoglobin ABG Oxyhemoglobin ABG Sodium ABG Potassium ABG Chloride ABG Glucose Oxyhemoglobin Sodium Potassium Chloride Carbon Dioxide BUN Creatinine Glucose POC Glucose 128 H 158 H 114 H Lactic Acid Calcium Phosphorus Magnesium Total Bilirubin AST ALT Alkaline Phosphatase Total Protein Albumin Triglycerides Arterial Blood Glucose Arterial Blood Ionized Calcium Digoxin Crossmatch 01/28/21 01/28/21 01/28/21 05:17 11:27 18:01 WBC RBC Hgb Hct MCV MCHC RDW Plt Count Lymph % (Auto) [place] % (Auto) Eos % (Auto) Lymph # (Auto) [place] # (Auto) Eos # (Auto) Seg Neutrophils % Seg Neuts % (Manual) Lymphocytes % (Manual) Monocytes % (Manual) Seg Neutrophils # Seg Neutrophils # Man Lymphocytes # (Manual) Monocytes # (Manual) PT INR ABG pH POC ABG pCO2 POC ABG pO2 ABG pO2 ABG HCO3 ABG O2 Saturation ABG Base Excess ABG Hemoglobin ABG Oxyhemoglobin ABG Sodium ABG Potassium ABG Chloride ABG Glucose Oxyhemoglobin Sodium Potassium Chloride Carbon Dioxide BUN Creatinine Glucose POC Glucose 113 H 134 H 111 H Lactic Acid Calcium Phosphorus Magnesium Total Bilirubin AST ALT Alkaline Phosphatase Total Protein Albumin Triglycerides Arterial Blood Glucose Arterial Blood Ionized Calcium Digoxin Crossmatch 01/29/21 01/29/21 01/29/21 04:54 06:45 11:10 WBC RBC Hgb Hct MCV MCHC RDW Plt Count Lymph % (Auto) [place] % (Auto) Eos % (Auto) Lymph # (Auto) [place] # (Auto) Eos # (Auto) Seg Neutrophils % Seg Neuts % (Manual) Lymphocytes % (Manual) Monocytes % (Manual) Seg Neutrophils # Seg Neutrophils # Man Lymphocytes # (Manual) Monocytes # (Manual) PT INR ABG pH POC ABG pCO2 POC ABG pO2 ABG pO2 ABG HCO3 ABG O2 Saturation ABG Base Excess ABG Hemoglobin ABG Oxyhemoglobin ABG Sodium ABG Potassium ABG Chloride ABG Glucose Oxyhemoglobin Sodium Potassium 3.4 L Chloride Carbon Dioxide BUN 51 H Creatinine 6.9 H Glucose 120 H POC Glucose 111 H 106 H Lactic Acid Calcium Phosphorus 2.10 L Magnesium Total Bilirubin AST ALT Alkaline Phosphatase 182 H Total Protein 6.0 L Albumin 2.9 L Triglycerides Arterial Blood Glucose Arterial Blood Ionized Calcium Digoxin Crossmatch 01/29/21 01/30/21 01/30/21 16:47 04:15 06:55 WBC RBC Hgb Hct MCV MCHC RDW Plt Count Lymph % (Auto) [place] % (Auto) Eos % (Auto) Lymph # (Auto) [place] # (Auto) Eos # (Auto) Seg Neutrophils % Seg Neuts % (Manual) Lymphocytes % (Manual) Monocytes % (Manual) Seg Neutrophils # Seg Neutrophils # Man Lymphocytes # (Manual) Monocytes # (Manual) PT INR ABG pH POC ABG pCO2 POC ABG pO2 ABG pO2 ABG HCO3 ABG O2 Saturation ABG Base Excess ABG Hemoglobin ABG Oxyhemoglobin ABG Sodium ABG Potassium ABG Chloride ABG Glucose Oxyhemoglobin Sodium Potassium Chloride Carbon Dioxide BUN 73 H Creatinine 9.2 H Glucose 119 H POC Glucose 110 H 126 H Lactic Acid Calcium Phosphorus 4.70 H D Magnesium Total Bilirubin AST ALT Alkaline Phosphatase Total Protein Albumin Triglycerides Arterial Blood Glucose Arterial Blood Ionized Calcium Digoxin Crossmatch 01/30/21 01/31/21 18:25 00:51 WBC RBC Hgb Hct MCV MCHC RDW Plt Count Lymph % (Auto) [place] % (Auto) Eos % (Auto) Lymph # (Auto) [place] # (Auto) Eos # (Auto) Seg Neutrophils % Seg Neuts % (Manual) Lymphocytes % (Manual) Monocytes % (Manual) Seg Neutrophils # Seg Neutrophils # Man Lymphocytes # (Manual) Monocytes # (Manual) PT INR ABG pH POC ABG pCO2 POC ABG pO2 ABG pO2 ABG HCO3 ABG O2 Saturation ABG Base Excess ABG Hemoglobin ABG Oxyhemoglobin ABG Sodium ABG Potassium ABG Chloride ABG Glucose Oxyhemoglobin Sodium Potassium Chloride Carbon Dioxide BUN Creatinine Glucose POC Glucose 117 H 134 H Lactic Acid Calcium Phosphorus Magnesium Total Bilirubin AST ALT Alkaline Phosphatase Total Protein Albumin Triglycerides Arterial Blood Glucose Arterial Blood Ionized Calcium Digoxin Crossmatch Allied health notes reviewed: nursing
--- NOTE | 2021-01-31 12:08 | Progress Note ---
Assessment and Plan Assessment: * ESRD previously on peritoneal dialysis; now on back up HD (on peritoneal dialysis for 2 years) * Small bowel obstruction --s/p ex-lap with jejuno-ileal anastamosis --s/p ex lap with extensive lysis of adhesions and two small bowel resections with primary anastamosis for SBO with necrotic segment small bowel. --s/p ex lap, resection of perforated anastamosis, washout and abthera wound vac placement. --s/p ex lap with right hemicolectomy. * Acute respiratory failure * Septic shock - resolved * Bacteremia - resolved * Hyperkalemia * Anemia of ESRD * Atrial fibrilation, new onset * Post op ileus Plan: * Continue HD MWF via left IJ permcath (12/27); due tomorrow, has been tolerating sessions well per report * 3K bath with dialysis * UF as tolerated * Epogen 10k units prn w/ dialysis * Rate control per cardiology * Abx per primary team/ID * Nutrition per primary team * Maintain MAP >65 * Surgery, pulm notes appreciated * He will also require outpatient hemodialysis chair prior to discharge * His BUN is much improved. Most likely due to hypercatabolic state. Continue 4-hour of dialysis Subjective Date of service: 01/31/21 Principal diagnosis: Ac hypoxemic resp failure; Severe Sepsis; Peritonitis; Acute SBO; ESRD; CHF Interval history: No acute events noted, patient wants to go home Objective - Exam Narrative Exam: - General Limitations: Physical Limitation General appearance: no acute distress - Head Head exam: Present: atraumatic, normocephalic - Eye Eye exam: Present: normal appearance, EOMI - Neck Neck exam: Present: normal inspection - Respiratory Respiratory exam: normal breathing patterns - Cardiovascular Cardiovascular Exam: Present: normal rhythm, tachycardia - GI/Abdominal GI/Abdominal exam: Present: soft, distended (slightly), tenderness (periumbi lical ) - Extremities Exam Extremities exam: Present: normal inspection; LIJ CVC noted - Neurological Exam Neurological exam: sedated - Psychiatric Psychiatric exam: opens eyes - Skin Skin exam: Present: warm, dry, intact, normal color - Vital Signs Vital signs: Vital Signs - 12hr 01/31/21 01/31/21 01/31/21 01:10 01:37 01:44 Temperature 98.9 F Pulse Rate 72 71 Respiratory 18 17 Rate Respiratory Rate [Anterior Abdomen] Blood Pressure 168/73 Blood Pressure 157/85 [Right] O2 Sat by Pulse 98 Oximetry 01/31/21 01/31/21 01/31/21 01:45 02:07 03:35 Temperature Pulse Rate 69 Respiratory 17 17 Rate Respiratory Rate [Anterior Abdomen] Blood Pressure 153/74 Blood Pressure [Right] O2 Sat by Pulse Oximetry 01/31/21 01/31/21 01/31/21 03:44 04:00 05:13 Temperature 99 F Pulse Rate 74 71 Respiratory 18 Rate Respiratory 17 Rate [Anterior Abdomen] Blood Pressure Blood Pressure 146/89 [Right] O2 Sat by Pulse 94 Oximetry 01/31/21 01/31/21 01/31/21 06:56 06:57 10:58 Temperature Pulse Rate 82 73 73 Respiratory Rate Respiratory Rate [Anterior Abdomen] Blood Pressure 176/89 162/79 162/79 Blood Pressure [Right] O2 Sat by Pulse Oximetry 01/31/21 11:56 Temperature Pulse Rate 73 Respiratory Rate Respiratory Rate [Anterior Abdomen] Blood Pressure 162/79 Blood Pressure [Right] O2 Sat by Pulse Oximetry - Lab 01/27/21 04:19 01/30/21 04:15 Most recent lab results ABG pH 7.345 pH Units (7.350-7.450) L 01/07/21 17:14 ABG pCO2 40.3 mm Hg 01/07/21 17:14 ABG pO2 67.4 mm Hg (80.0-90.0) L 01/07/21 17:14 ABG HCO3 21.5 mmol/L (20.0-26.0) 01/07/21 17:14 ABG O2 Saturation 94.3 % (95.0-99.0) L 01/07/21 17:14 Calcium 9.0 mg/dL (8.4-10.2) 01/30/21 04:15 Phosphorus 4.70 mg/dL (2.5-4.5) H D 01/30/21 04:15 Magnesium 2.30 mg/dL (1.7-2.3) 01/30/21 04:15 Medications & Allergies - Medications Allergies/Adverse Reactions: Allergies No Known Allergies Allergy (Verified 06/09/20 15:27) Home Medications: Home Medications Medication Instructions Recorded Confirmed Last Taken Type Albuterol Mdi (or & Nicu Only) 2 puff IH QID PRN #1 inhalation 04/01/17 11/01/20 10/31/20 09:00 Rx [ProAir HFA Inhaler] Calcium Acetate 667 mg PO DAILY 04/20/20 11/01/20 10/31/20 09:00 History Centrum Men's Tablet 1 tab PO DAILY 04/20/20 11/01/20 10/31/20 09:00 History Cinacalcet 30 mg PO DAILY 04/20/20 11/01/20 10/31/20 09:00 History Dialyvite with Zinc Tablet 1 tab PO DAILY 04/20/20 11/01/20 10/31/20 09:00 History Magnesium 250 mg PO BID 04/20/20 11/01/20 10/31/20 17:00 History Triamcinolone 0.1% 1 1000units TRANSDERMA DAILY 04/20/20 11/01/20 10/31/20 09:00 History Vit B12/Folic Acid/B6/Aa No.15 1,000 mg PO DAILY 04/20/20 11/01/20 10/31/20 09:00 History amLODIPine 10 mg PO DAILY 06/09/20 11/01/20 10/31/20 09:00 History AtorvaSTATin 40 mg PO HS 11/01/20 11/01/20 10/31/20 21:00 History Benadryl 25 mg PO HS 11/01/20 11/01/20 10/31/20 21:00 History Diclofenac 1 TRANSDERMA QID 11/01/20 10/31/20 19:00 History Fluticasone Propionate 1 spray INTRANASAL DAILY 11/01/20 11/01/20 10/31/20 09:00 History Vitamin D3 2,000 units 11/01/20 10/31/20 09:00 History carvediloL 12.5 mg PO DAILY 11/01/20 11/01/20 10/31/20 09:00 History hydrALAZINE 100 mg PO TID 11/01/20 11/01/20 10/31/20 19:00 History Active Medications: Generic Name Dose Route Start Last Admin Trade Name Freq PRN Reason Stop Dose Admin Acetaminophen 650 mg 12/31/20 15:30 01/21/21 05:28 Acetaminophen 650 Mg Rect Supp MI 650 mg Q6H PRN Administration Non Cardiac Pain or Temp>100.5 Clonidine HCl 0.2 mg 01/11/21 10:00 01/25/21 09:42 Clonidine Tts 0.2 Mg/24 Hr Patch TD 0.2 mg We THOMAS Administration Dextrose 50 ml 01/14/21 17:59 01/18/21 15:10 Dextrose 50% In Water (25gm) 50 Ml Syringe IV 20 ml Q30MIN PRN Administration Hypoglycemia Protocol Digoxin 0.125 mg 01/09/21 12:00 01/29/21 11:52 Digoxin 0.5 Mg/2 Ml Inj IV 0.125 mg Q48H THOMAS Administration Diphenhydramine HCl 50 mg 01/20/21 10:10 01/29/21 02:07 Diphenhydramine 50 Mg/Ml Vial IV 50 mg Q6H PRN Administration Itching Famotidine 10 mg 12/24/20 13:00 01/31/21 10:58 Famotidine 20 Mg/2 Ml Inj IV 10 mg BID THOMAS Administration Haloperidol Lactate 5 mg 12/29/20 14:16 01/22/21 23:56 Haloperidol Lactate 5 Mg/1 Ml Inj IV 5 mg Q12H PRN Administration Agitation Heparin Sodium (Porcine) 5,000 unit 12/24/20 10:00 01/31/21 10:58 Heparin 5,000 Unit/1 Ml Vial SUB-Q 5,000 unit Q12HR THOMAS Administration Hydralazine HCl 10 mg 01/10/21 14:00 01/31/21 11:56 Hydralazine 20 Mg/1 Ml Inj IV Not Given Q4HR THOMAS Hydromorphone HCl 0.25 mg 01/09/21 10:53 01/31/21 01:37 Hydromorphone 1 Mg/1 Ml Inj IV 0.25 mg Q6H PRN Administration Pain , Severe (7-10) Octreotide Acetate 100 mcg/ 101 mls @ 200 mls/hr 01/21/21 15:00 01/31/21 11:57 Sodium Chloride IV Infused Q8H THOMAS Infusion Sodium Chloride 100 mls @ 999 mls/hr 01/27/21 18:37 Nacl 0.9% IV [place] PRN Hypotension Amino Acids/Electrolytes/Dextrose 2,016 mls @ 84 mls/hr 01/30/21 20:00 01/30/21 22:22 Tpn Adult IV 01/31/21 19:59 84 mls/hr DAILY@1999 [facility] Administration Protocol Amino Acids/Electrolytes/Dextrose 2,016 mls @ 84 mls/hr 01/31/21 20:00 Tpn Adult IV 02/01/21 19:59 DAILY@1999 [facility] Protocol Insulin Glargine 5 units 01/18/21 22:00 01/31/21 02:16 Insulin Glargine 100 Units/Ml SUB-Q Not Given QHS [facility] Insulin Human Lispro 0 unit 01/03/21 12:00 01/31/21 08:13 Insulin Lispro 100 Unit/Ml SUB-Q Not Given Q6HR [facility] Protocol Metoprolol Tartrate 5 mg 12/30/20 12:00 01/31/21 10:58 Metoprolol Tartrate 5 Mg/5 Ml Inj IV 5 mg Q4HR THOMAS Administration Ondansetron HCl 4 mg 01/25/21 11:56 01/31/21 02:19 Ondansetron 4 Mg/2 Ml Inj IV 4 mg Q4H PRN Administration Nausea And Vomiting Scopolamine 1 each 01/15/21 11:00 01/30/21 18:19 Scopolamine Transdermal Patch 72 Hr TD 1 each Q3D THOMAS Administration Sodium Chloride 10 ml 12/22/20 22:00 01/31/21 11:03 Sodium Chloride 0.9% 10 Ml Flush Syringe IV 10 ml BID THOMAS Administration Sodium Chloride 10 ml 12/22/20 19:42 01/29/21 02:08 Sodium Chloride 0.9% 10 Ml Flush Syringe IV 10 ml PRN PRN Administration LINE FLUSH
--- NOTE | 2021-01-31 13:09 | Progress Note ---
Assessment and Plan Severe Sepsis with shock Streptococcus bovis bacteremia/Prevotella bacteremia Gwendolyn albicans tracheal aspirate Small bowel obstruction/necrotic bowel s/p ex lap with extensive lysis of adhesions, 2 small bowel resections with primary anastomosis, right hemicolectomy, jejunal colonic anastomosis, segmental small bowel resection Postoperative ileus Atrial fibrillation with RVR Leukocytosis Hypochloremia Gwendolyn albicans in tracheal aspirate from 12/24 ESRD on PD, PermCath to be placed Transaminitis Systolic CHF(EF 35%) Crohn's disease Hypertension -[facility], surgery, infectious disease, nephrology, vascular surgery, cardiology consulted, appreciate recommendations -12/24 S/p ex lap with extensive expectations, 2 small bowel resections with primary anastomosis with surgery on 12/23 -s/p PICC and Permacath placement with vascular surgery on 12/27 -Extubated on 12/28, reintubated 12/31 for respiratory distress and extubated 01/08 -12/29 echocardiogram shows moderate concentric LVH, small pericardial effusion, transmitral Doppler flow pattern is grade 1 abnormal relaxation pattern, left- ventricular systolic function normal, LVEF 50 to 55%, no wall motion abnormalities. -01/01 CT abdomen/pelvis shows small pericardial effusion, mild coronary artery atherosclerotic calcification, small bilateral pleural effusions with associated volume loss, no convincing evidence of bowel obstruction or inflammation, postoperative changes from interval/recent midline laparotomy with a moderate amount of free fluid throughout the abdomen, small amount of dependent free air presumably postoperative -01/02 s/p ex lap, resection of perforated anastamosis, washout and abthera wound vac placement. -01/04 s/p ex lap with right hemicolectomy. -01/06 s/p exploratory laparotomy, Jejunal colonic anastomosis, Segmental small bowel resection. -s/p Vasopressor support with Levophed and vasopressin -Transitioned to HD from PD -HD per nephro, Epogen with HD -Strict NPO -cont TPN, Octreotide drip -NGT to LIWS -s/p IV antibiotics -Tobacco abuse cessation counseling -Trend CBC, BMP DVT/GI prophylaxis: PPI, heparin subcu, SCDs to bilateral lower extremities wh ile in bed Brief Course: This is a 60 YO Male with ESRD on PD, GERD, Crohn's Disease, Nicotine Dependence, HTN, Systolic CHF(EF 35%) who presented to the emergency department on 12/22 with complaints of abdominal pain which began shortly after eating fast food rated 10/10 which is periumbilical, constant, associated with fever, nausea and multiple sites of vomiting and self-reported inability to undergo PD. In the emergency room patient underwent a CT scan of the abdom en/pelvis which revealed evidence of partial small bowel obstruction, symptoms were consistent with bacterial peritonitis. Patient was admitted to the hospital service with sepsis, peritonitis, and small bowel obstruction with consults to general surgery, nephrology, infectious disease and [facility]. Daily clinical course: 12/23. Patient had temperature 101.2 F, tachycardia and elevated lactic acid on admission. Meet sepsis criteria. Started on IV antibiotics. ID has been consulted. Surgery consulted this a.m.-advised laparoscopy. He remains on NG tube connected to suction. 12/24. Patient was noted to have peritonitis yesterday and patient undergoing exploratory laparotomy. Patient remained intubated after procedure and is in ICU. Now on broad-spectrum antibiotics. ID on board. 12/25. Remains mechanically ventilated and sedated. Temp 103 Fahrenheit. Antibi otics broadened-ID added fluconazole and Flagyl. Blood cultures ordered. Plan to repeat CT abdomen tomorrow if not better. Surgery following. 12/26: Patient remains on mechanical ventilation on CMV tidal line 550, rate of 14, PEEP of 8 and 30% FiO2 and sedated on fentanyl 4 micrograms. Today we will remove his Jeffery and [facility] dropped his rate controlled him on CPAP. We will trend CBC given recent drop in H/H. 12/27: Patient remains intubated on CMV tidal volume 550, rate 12, PEEP 8 on 30% FiO2 at the time my examination. Patient's TPN will be changed to PPN. Patient's fentanyl drip will be changed to IV push fentanyl and have a permacath placed today and midline. Patient was placed on a spontaneous breathing trial was switched back to CMV prior to procedure. 12/28: Patient on fentanyl but awake and follows commands. At the time of my examination he was on a CPAP trial and is scheduled to receive HD today. s/o permacath and PICC placement with vascular yesterday. His blood culture grew Prevotella and addition to Streptococcus bovis. This evening Dr. Spicer attempted to extubate the patient and his heart rate went to the 180s. Stat EKG obtained and cardiology consulted. 12/29: Patient was started on amiodarone IV for A. fib RVR yesterday and today he is more rate controlled into the 70s and 80s. Patient was extubated yesterday and is currently on Ventimask. Patient will be transferred to [facility]. Patient continues to be n.p.o. with TPN and NG tube to LIS. He is hypokalemic today which was repleted. 12/30; patient was on IV amiodarone for treatment with RVR, rate is controlled. Patient was off oxygen. patient is n.p.o. and on TPN. Surgery is following the patient. 12/31: Patient was intubated overnight for respiratory distress and this morning on examination he was on assist control tidal volume 450, rate 20, PEEP 6, 100% FiO2 and RT was getting a ABG to adjust vent settings. Patient had a acute bump in WBC and per ID recommendations we will obtain a CT abdomen/pelvis if leukocytosis persist. Patient is on TPN and sedated with Levophed. Patient is also on vasopressor support with Levophed. Per surgery his ileus is resolving however will maintain OGT to LIWS. 01/01: Patient was started on a vasopressin yesterday late evening. This morning patient is on 20 mcg of Levophed and 0.03 vasopressin and sedated on 20 mcg of propofol. Patient WBC increased today and he is hypokalemic. We will treat hyperkalemia. Patient had a CT chest and abdomen/pelvis pending. The time examination total of 450, rate 20, PEEP of 6 and 35 percent FiO2. Per RN, Dr Lucero mancera has stated that the patient will be returning to the OR today for likely anastomosis seen on CT abdomen/pelvis. 01/02: Patient noted, WBC improving, but noted to have anemia, will transfuse additional unit of Blood and repeat H/H. continue supportive care. 01/03: Continue to wean pressors, ABX PER ID, patient to return to OR today for washout and possible closure, CONTINUE TPN 5/12: Continues to show some improvement. Today is POD#12 s/p ex lap with extensive lysis of adhesions and two small bowel resections with primary anastamosis for SBO with necrotic segment small bowel. POD#3 s/p ex lap, resection of perforated anastamosis, washout and abthera wound vac placement. POD#1 s/p ex lap with right hemicolectomy. Surgery planning to take back to the OR on Saturday with the hope to anastamos ileum to transverse colon and close abdomen. keep NGT to suction. Pt in deep sedation due to open abdomen. Per ID - Continue IV Zosyn, renally dosed for Strep bacteremia treatment till 01/06/2021 -On TPN 01/05: Patient continues on HD, anticipate return to OR tomorrow for closure and anastemosis. Continues with deep sedation due to open abdomen 01/06: Continue supportive care, monitor pressures and electrolytes. He is post op Exploratory laparotomy, 2. Jejunal colonic anastomosis,3. Segmental small bowel resection and anastemosis closure today. Continue wound vac 5: Continue supportive care, Today is POD#15 s/p ex lap with extensive lysis of adhesions and two small bowel resections with primary anastamosis for SBO with necrotic segment small bowel. POD#6 s/p ex lap, resection of perforated anastamosis, washout and abthera wound vac placement. POD#4 s/p ex lap with right hemicolectomy. POD #1 exploratory laparotomy, 2. Jejunal colonic anastomo sis,3. Segmental small bowel resection. Continue to monitor and correct electrolytes. Patient remains on fentanyl and TPN with lipids. Still hypoactive bowel sounds. 16: Patient now extubated, asked when he can go home, Still lethargic. Continue wound management, wound vac, Will need Rehab eval prior to discharge. 01/09: Patient remains on TPN, was started on labetalol drip per cardiology, patient had uncontrolled hypertension today however he cannot be given p.o. medications ileus resolves per surgery. Patient received hemodialysis today. NG tube remains to low intermittent suction. 01/10: Patient has some leukocytosis, slight hypokalemia and hyponatremia, metabolic acidosis. NG tube to LIWS, continue TPN. Patient will be downgraded to IMCU today. [facility] is working on placement. Will change frequency of hydralazine and discontinue labetalol drip. We will obtain a.m. BMP/mag/Phos and CBC. Infectious disease will like to start Zosyn if leukocytosis continues to worsen. 01/11: Patient leukocytosis has slightly improved potassium with in normal limits and other electrolytes are elevated but patient is scheduled for HD today. Remains on RA and A,A,Ox4. BP better controlled but remains elevated and we will increase clonidine dose. 01/12/2021; patient's blood pressure is better after dialysis and as needed IV medications and clonidine patch. Patient is followed by general surgery. Patient was alert and oriented and asked when he is going home. 01/13: Surgery is concerned about a leak at his anastamosis given increased output and will treat as controlled fistula and start an octreotide drip. And per surgery if he requires operative intervention will likely need to be left in discontinuity and eventual ileostomy as he has already failed two anastamoses. Patient still has tongue swelling and slurred speech. He is on Benadryl. 01/14: Patient's tongue swelling is improved, patient is alert and oriented, CAM ICU negative. Continue NG tube to low wall intermittent suction. Leukocytosis is improving. Hypomagnesemia resolved. Epogen with HD 01/15: Patient tongue swelling is much improved, bladder scan completed by bedside RN and he needed to be straight cathed. NGT output decreased. Leukocytosis improving. Patient has been having episodes of hypoglycemia during the day and he is on cyclic TPN, Lantus rescheduled to nightly and dosage decreased. 01/16: Continue management per ID and surgery. Will defer repeat CT of the abdomen to the team surgery has been approved by nephrology. Continue current diet and advance all to ice if okay with surgery discussed with nursing staff. 01/17: Discussed surgical recommendation of strict n.p.o. except for small amount of ice as patient has already failed to anastomosis. And risk for additional surgery with tissues were extremely friable from previous scar. He continues on octreotide drip to slow down GI output HARIS drain remains in place with NG suction for decompression. Patient verbalized understanding although stressed about being discharged. We will continue IMCU care unless otherwise advised by surgery. Prognosis remains guarded continue to monitor electrolytes considering GI output. 01/18: Continue supportive care, BP mildly elevated, continue to monitor, continue current therapy, if no return to PO soon may consider Increasing clonidine to 0.3, PO when ok with surgery. 01/19:Continue supportive care, Per ID continue IV Zosyn, plan to stop at 3 weeks from last surgery end date: 01/24/2021. Other management per surgery. Continue TPN. 01/20: Discussed with Surgery, will continue current management. Advised patient of the findings and plan. 01/21: Continue supportive care. Continue management per surgery advance diet when okay with surgery. Plan of care discussed with the patient in detail. 01/22: NG tube to be replaced explained to the patient why this is important. I agree with PT OT discussed with nursing staff very important to let the PT team know that they should manage HARIS drain while patient is ambulating so that he does not come out. Continue current management. Change in ocreotide to q8h and d/c drip NOTED 01/23: Continue supportive care, HD today, counselling provided to the patient on compliance with medical management 01/24: Replace NGT, Continue management per Surgery. POD 32. Mild hypokalemia noted, will replace. 01/25: Brief summary patient is a 60-year-old male admitted with abdominal pain and noted to have necrotic bowel concerning for PD associated peritonitis. Catheter was placed to convert to HD. Patient also underwent multiple surgical interventions. Initial cultures showed Streptococcus bovis bacteremia and Prevotella bacteremia a COLIN was without vegetations repeat blood cultures have been negative. Part of the surgery is included ex lap, resection of perforated anastomosis, washout and a better wound VAC placement on 01/01. While progress has remained slow if has indeed shown some improvement. Patient is agitated about being in the hospital but understands the care management been provided his vital to his health and to prevent further surgeries. The NG tube has been pulled out 2 days ago he vehemently refused the tube being placed back but after a day of nausea with associated vomiting he was accepting of the chest tube to put back. He continues on TPN. We will continue to monitor electrolytes and correct as needed. This a.m. and erroneous blood was obtained likely from the same line as TPN repeat was done which showed normalizing factors. Patient completed antibiotics on 01/25/2020 . 01/26 Patient with severe sepsis with septic shock, small bowel obstruction, necrotic bowel s/p multiple surgeries. He complains of abdominal pain. No fever currently. He asked me when is he going home and i explained that he is not yet stable for discharge 01/27 Patient with severe sepsis with septic shock, small bowel obstruction, necrotic bowel s/p multiple surgeries. He complains of abdominal pain. No fever currently. Paroxysmal atrial fib managed by cardiology 01/28 Patient with severe sepsis with septic shock, small bowel obstruction, necrotic bowel s/p multiple surgeries. No fever currently. No abd pain currently. I discussed with Surgeon, Dr. Pollock. Continue current management. He also has paroxysmal afib, managed by Cardiology. 01/29 Patient with severe sepsis with septic shock, small bowel obstruction, necrotic bowel s/p multiple surgeries. No fever currently. No abd pain currently. I discussed with Surgeon, Dr. Pollock, yesterday. Continue current management. He also has paroxysmal afib, managed by Cardiology. He is on Metoprolol, Digoxin, Clonidine 01/30 Patient with severe sepsis with septic shock, small bowel obstruction, necrotic bowel s/p multiple surgeries. Patient is a 60-year-old male admitted with abdominal pain and noted to have necrotic bowel concerning for PD associated peritonitis. Catheter was placed to convert to HD. Patient also und erwent multiple surgical interventions. Initial cultures showed Streptococcus bovis bacteremia and Prevotella bacteremia a COLIN was without vegetations repeat blood cultures have been negative. Part of the surgery is included ex lap, resection of perforated anastomosis, washout and a better wound VAC placement on 01/01. While progress has remained slow if has indeed shown some improvement. Patient is agitated about being in the hospital but understands the care management been provided his vital to his health and to prevent further surgeries. He continues on TPN. No fever currently. Less abdominal pain. I discussed with Surgeon, Dr. Pollock, few days ago. Continue current management. He also has paroxysmal afib, managed by Cardiology. He is on Metoprolol, Digoxin, Clonidine. ESRD on dialysis managed by Nephrology. 01/31: Continue HARIS drain suction. Ongoing treatment for anastomotic le ak/controlled low output fistula. Maintain LIWS to NGT and monitor output. continue q 8h ocreotide. cont TPN. Defer to general surgery for NG tube discontinuation. Subjective Date of service: 01/31/21 Principal diagnosis: Ac hypoxemic resp failure; Severe Sepsis; Peritonitis; Acute SBO; ESRD; CHF Interval history: Patient seen and examined. Medical records and medication list reviewed. No acute event overnight noted by the RN. Patient denies any chest pain or difficulty breathing. Patient remains on TPN Patient requesting to remove rectal tube and NG tube as its causing significant discomfort and pain Discussed plan of care at bedside with patient. Objective - Exam Narrative Exam: Gen:Not in acute distress, lying in bed HEENT:Normocephalic , NG tube Neck:supple, no JVD Lungs:Clear to auscultation bilat, no rales Heart:S1 and S2 reg, no murmurs, no rubs or gallop Abd: covered with dressing, HARIS drain, decreased bowel sounds Ext: No edema, no clubbing, no cyanosis Neuro:Awake,alert,oriented X3, moves all extremities psych: Calm, co-operative - Constitutional Vitals: Vital Signs - 12hr 01/31/21 01/31/21 01/31/21 01:10 01:37 01:44 Temperature 98.9 F Pulse Rate 72 71 Respiratory 18 17 Rate Respiratory Rate [Anterior Abdomen] Blood Pressure 168/73 Blood Pressure 157/85 [Right] O2 Sat by Pulse 98 Oximetry 01/31/21 01/31/21 01/31/21 01:45 02:07 03:35 Temperature Pulse Rate 69 Respiratory 17 17 Rate Respiratory Rate [Anterior Abdomen] Blood Pressure 153/74 Blood Pressure [Right] O2 Sat by Pulse Oximetry 01/31/21 01/31/21 01/31/21 03:44 04:00 05:13 Temperature 99 F Pulse Rate 74 71 Respiratory 18 Rate Respiratory 17 Rate [Anterior Abdomen] Blood Pressure Blood Pressure 146/89 [Right] O2 Sat by Pulse 94 Oximetry 01/31/21 01/31/21 01/31/21 06:56 06:57 10:58 Temperature Pulse Rate 82 73 73 Respiratory Rate Respiratory Rate [Anterior Abdomen] Blood Pressure 176/89 162/79 162/79 Blood Pressure [Right] O2 Sat by Pulse Oximetry 01/31/21 01/31/21 11:46 11:56 Temperature 98.6 F Pulse Rate 68 73 Respiratory 16 Rate Respiratory Rate [Anterior Abdomen] Blood Pressure 160/82 162/79 Blood Pressure [Right] O2 Sat by Pulse 100 Oximetry - Labs CBC & Chem 7: 01/27/21 04:19 02/02/21 03:25 Labs: Abnormal lab results 01/30/21 01/31/21 01/31/21 Range/Units 18:25 00:51 07:15 POC Glucose 117 H 134 H 134 H (70-105) mg/dL 01/31/21 Range/Units 11:45 POC Glucose 119 H (70-105) mg/dL HEART Score - HEART Score Troponin: Troponin T 0.021 ng/mL (0.00-0.029) 12/22/20 14:38
--- NOTE | 2021-01-31 13:29 | Event Note ---
Date: 01/31/21 Contacted about possible percutaneous radiologically placed G-tube placement. Ordered CT of the abdomen pelvis without contrast for further evaluation.
--- NOTE | 2021-01-31 14:50 | Cat Scan Report ---
CT ABDOMEN AND PELVIS WITHOUT CONTRAST HISTORY: preop eval for g tube assessment COMPARISON: 01/01/2021 TECHNIQUE: Axial CT images were obtained through the abdomen and pelvis without IV contrast. Sagittal and coronal reformatted images. All CT scans at this location are performed using CT dose reduction for ALARA by means of automated exposure control. FINDINGS: CT ABDOMEN: Lung Bases: The visualized lung bases are clear. Stable cardiomegaly. Liver: No significant abnormality. Biliary: Gallbladder is surgically absent. Spleen: No significant abnormality. Unenlarged. Pancreas: No significant abnormality. Adrenals: No significant abnormality. Kidneys: There is mild bilateral renal atrophy and scattered simple appearing cysts. No obstructive u ropathy. Lymphatics: No lymphadenopathy. Vasculature: Mild atherosclerotic disease throughout the aorta and iliac arteries. No aneurysm. Bowel/Peritoneum: Nasogastric tube terminates in the mid stomach. Colostomy tube terminates in the tr ansverse colon area. Rectal tube is also in place. There is no evidence for bowel obstruction. There is mild thickening of multiple bowel loops which could represent a mild enteritis/colitis. There is n o evidence for free air. Small ascites is identified. CT PELVIS: : No significant abnormality. Osseous Structures: No significant abnormality. Additional Findings: None IMPRESSION: Mild cardiomegaly. Findings suggestive of a mild enteritis/colitis as described. Small ascites. Cholecystectomy. Mild renal atrophy and scattered bilateral renal cysts. Signer Name: Rodney Ho Jr, MD Signed: 01/31/2021 2:46 PM Workstation Name: [id number]
[2021-01-31] MEDS: DIGOXIN 0.5 MG/2 ML INJ IV SCH (15:28)
--- NOTE | 2021-01-31 17:57 | Progress Note ---
Assessment and Plan POD#38 s/p ex lap with extensive lysis of adhesions and two small bowel resections with primary anastamosis for SBO with necrotic segment small bowel. POD#29 s/p ex lap, resection of perforated anastamosis, washout and abthera wound vac placement. POD#27 s/p ex lap with right hemicolectomy. POD#25 s/p ex lap, with jejunal-colonic anastamosis and closure of abdomen. Afebrile and stable. - concerned about a leak at his anastamosis. Clinically improved with decreased output that is becoming more serous. Blood supply was evaluated at time of last surgery with ICG and found to be adequate. Pt was on several days of steroids for tongue swelling which may have contributed to leak. Currently since he is stable and afebrile will treat like controlled fistua. He is extremely high risk for additional surgery with tissues that are extremely friable and previous scar tissue that makes his anatomy very difficult to manipulate. If he requires operative intervention will likely need to be left in discontinuity and eventual ileostomy as he has already failed two anastamoses. Continue HARIS drain suction. Will maintain LIWS to NGT and monitor output. HARIS drain must be secured and kept in place. Since HARIS drain has continued to decrease over the last several days, will continue q 8h ocreotide. Spoke to IR about possibly placing CT guided g-tube so that he can be decompressed without having NGT. Pt says he is agreeable to that. Subjective Date of service: 01/31/21 Patient Reports: Positive: no new complaints (no acute events overnight. pt says he wants his NGT out.) Objective Vital Signs - 12hr 01/31/21 01/31/21 01/31/21 06:56 06:57 10:58 Temperature Pulse Rate 82 73 73 Respiratory Rate Blood Pressure 176/89 162/79 162/79 O2 Sat by Pulse Oximetry 01/31/21 01/31/21 01/31/21 11:46 11:56 14:02 Temperature 98.6 F Pulse Rate 68 73 73 Respiratory 16 Rate Blood Pressure 160/82 162/79 162/79 O2 Sat by Pulse 100 Oximetry 01/31/21 01/31/21 01/31/21 15:28 16:31 17:36 Temperature 98.3 F Pulse Rate 73 73 73 Respiratory 16 Rate Blood Pressure 162/79 163/87 163/87 O2 Sat by Pulse 98 Oximetry - General physical appearance well developed, no distress, no pain - Respiratory normal expansion, normal respiratory effort - Abdomen soft, not tender, other (HARIS drain with small amount of brown drainage, NGT bilious) - Labs 01/27/21 04:19 01/30/21 04:15
[2021-01-31] MEDS ORDERED: TOTAL PARENTERAL NUTRITION 2,016 ML IV SCH (20:00)
[2021-02-01] MEDS: hydrALAZINE 20 MG/1 ML INJ IV SCH ×5 (02:50→22:25)
[2021-02-01] MEDS: METOPROLOL TARTRATE 5 MG/5 ML INJ IV SCH ×5 (02:55→22:00)
[2021-02-01] MEDS: INSULIN LISPRO 100 UNIT/ML SUB-Q SCH ×4 (06:11→17:02)
[2021-02-01] MEDS: OCTREOTIDE 100 MCG in SODIUM CHLORIDE 0.9% 100 ML IV SCH ×2 (08:05→16:47)
--- NOTE | 2021-02-01 10:32 | Progress Note ---
Assessment and Plan Assessment: * ESRD previously on peritoneal dialysis; now on back up HD (on peritoneal dialysis for 2 years) * Small bowel obstruction --s/p ex-lap with jejuno-ileal anastamosis --s/p ex lap with extensive lysis of adhesions and two small bowel resections with primary anastamosis for SBO with necrotic segment small bowel. --s/p ex lap, resection of perforated anastamosis, washout and abthera wound vac placement. --s/p ex lap with right hemicolectomy. * Acute respiratory failure * Septic shock - resolved * Bacteremia - resolved * Hyperkalemia * Anemia of ESRD * Atrial fibrilation, new onset * Post op ileus Plan: * Continue HD MWF via left IJ permcath (12/27); due today * 3K bath with dialysis * UF as tolerated * Epogen 10k units prn w/ dialysis * Rate control per cardiology * Abx per primary team/ID * Nutrition per primary team * Maintain MAP >65 * Surgery, pulm notes appreciated-> note plans for potential IR-guided G-tube placement * He will also require outpatient hemodialysis chair prior to discharge * His BUN is much improved. Most likely due to hypercatabolic state. Continue 4-hour of dialysis Subjective Date of service: 02/01/21 Principal diagnosis: Ac hypoxemic resp failure; Severe Sepsis; Peritonitis; Acute SBO; ESRD; CHF Interval history: No acute events noted, resting this AM Objective - Exam Narrative Exam: - General Limitations: Physical Limitation General appearance: no acute distress - Head Head exam: Present: atraumatic, normocephalic - Eye Eye exam: Present: normal appearance, EOMI - Neck Neck exam: Present: normal inspection - Respiratory Respiratory exam: normal breathing patterns - Cardiovascular Cardiovascular Exam: Present: normal rhythm, tachycardia - GI/Abdominal GI/Abdominal exam: Present: soft, distended (slightly), tenderness (periumbilica l ) - Extremities Exam Extremities exam: Present: normal inspection; LIJ CVC noted - Neurological Exam Neurological exam: sedated - Psychiatric Psychiatric exam: opens eyes - Skin Skin exam: Present: warm, dry, intact, normal color - Vital Signs Vital signs: Vital Signs - 12hr 01/31/21 02/01/21 02/01/21 23:17 00:00 00:12 Temperature 98.8 F Pulse Rate 68 Respiratory 20 17 Rate Respiratory Rate [Anterior Abdomen] Blood Pressure 153/78 O2 Sat by Pulse 93 99 Oximetry 02/01/21 02/01/21 02/01/21 02:50 02:55 03:00 Temperature Pulse Rate 87 75 Respiratory Rate Respiratory 16 Rate [Anterior Abdomen] Blood Pressure 163/79 171/84 O2 Sat by Pulse Oximetry 02/01/21 02/01/21 02/01/21 05:15 06:01 06:10 Temperature 98.6 F Pulse Rate 71 71 74 Respiratory 20 Rate Respiratory Rate [Anterior Abdomen] Blood Pressure 165/78 165/78 165/70 O2 Sat by Pulse 96 Oximetry - Lab 01/27/21 04:19 01/30/21 04:15 Most recent lab results ABG pH 7.345 pH Units (7.350-7.450) L 01/07/21 17:14 ABG pCO2 40.3 mm Hg 01/07/21 17:14 ABG pO2 67.4 mm Hg (80.0-90.0) L 01/07/21 17:14 ABG HCO3 21.5 mmol/L (20.0-26.0) 01/07/21 17:14 ABG O2 Saturation 94.3 % (95.0-99.0) L 01/07/21 17:14 Calcium 9.0 mg/dL (8.4-10.2) 01/30/21 04:15 Phosphorus 4.70 mg/dL (2.5-4.5) H D 01/30/21 04:15 Magnesium 2.30 mg/dL (1.7-2.3) 01/30/21 04:15 Medications & Allergies - Medications Allergies/Adverse Reactions: Allergies No Known Allergies Allergy (Verified 06/09/20 15:27) Home Medications: Home Medications Medication Instructions Recorded Confirmed Last Taken Type Albuterol Mdi (or & Nicu Only) 2 puff IH QID PRN #1 inhalation 04/01/17 11/01/20 10/31/20 09:00 Rx [ProAir HFA Inhaler] Calcium Acetate 667 mg PO DAILY 04/20/20 11/01/20 10/31/20 09:00 History Centrum Men's Tablet 1 tab PO DAILY 04/20/20 11/01/20 10/31/20 09:00 History Cinacalcet 30 mg PO DAILY 04/20/20 11/01/20 10/31/20 09:00 History Dialyvite with Zinc Tablet 1 tab PO DAILY 04/20/20 11/01/20 10/31/20 09:00 History Magnesium 250 mg PO BID 04/20/20 11/01/20 10/31/20 17:00 History Triamcinolone 0.1% 1 1000units TRANSDERMA DAILY 04/20/20 11/01/20 10/31/20 09:00 History Vit B12/Folic Acid/B6/Aa No.15 1,000 mg PO DAILY 04/20/20 11/01/20 10/31/20 09:00 History amLODIPine 10 mg PO DAILY 06/09/20 11/01/20 10/31/20 09:00 History AtorvaSTATin 40 mg PO HS 11/01/20 11/01/20 10/31/20 21:00 History Benadryl 25 mg PO HS 11/01/20 11/01/20 10/31/20 21:00 History Diclofenac 1 TRANSDERMA QID 11/01/20 10/31/20 19:00 History Fluticasone Propionate 1 spray INTRANASAL DAILY 11/01/20 11/01/20 10/31/20 09:00 History Vitamin D3 2,000 units 11/01/20 10/31/20 09:00 History carvediloL 12.5 mg PO DAILY 11/01/20 11/01/20 10/31/20 09:00 History hydrALAZINE 100 mg PO TID 11/01/20 11/01/20 10/31/20 19:00 History Active Medications: Generic Name Dose Route Start Last Admin Trade Name Freq PRN Reason Stop Dose Admin Acetaminophen 650 mg 12/31/20 15:30 01/21/21 05:28 Acetaminophen 650 Mg Rect Supp [place] 650 mg Q6H PRN Administration Non Cardiac Pain or Temp>100.5 Clonidine HCl 0.2 mg 01/11/21 10:00 01/25/21 09:42 Clonidine Tts 0.2 Mg/24 Hr Patch TD 0.2 mg We THOMAS Administration Dextrose 50 ml 01/14/21 17:59 01/18/21 15:10 Dextrose 50% In Water (25gm) 50 Ml Syringe IV 20 ml Q30MIN PRN Administration Hypoglycemia Protocol Digoxin 0.125 mg 01/09/21 12:00 01/31/21 15:28 Digoxin 0.5 Mg/2 Ml Inj IV 0.125 mg Q48H THOMAS Administration Diphenhydramine HCl 50 mg 01/20/21 10:10 01/29/21 02:07 Diphenhydramine 50 Mg/Ml Vial IV 50 mg Q6H PRN Administration Itching Famotidine 10 mg 12/24/20 13:00 01/31/21 21:35 Famotidine 20 Mg/2 Ml Inj IV 10 mg BID THOMAS Administration Haloperidol Lactate 5 mg 12/29/20 14:16 01/22/21 23:56 Haloperidol Lactate 5 Mg/1 Ml Inj IV 5 mg Q12H PRN Administration Agitation Heparin Sodium (Porcine) 5,000 unit 12/24/20 10:00 01/31/21 21:36 Heparin 5,000 Unit/1 Ml Vial SUB-Q 5,000 unit Q12HR THOMAS Administration Hydralazine HCl 10 mg 01/10/21 14:00 02/01/21 06:01 Hydralazine 20 Mg/1 Ml Inj IV 10 mg Q4HR THOMAS Administration Hydromorphone HCl 0.25 mg 01/09/21 10:53 01/31/21 21:21 Hydromorphone 1 Mg/1 Ml Inj IV 0.25 mg Q6H PRN Administration Pain , Severe (7-10) Octreotide Acetate 100 mcg/ 101 mls @ 200 mls/hr 01/21/21 15:00 02/01/21 08:0 5 Sodium Chloride IV 200 mls/hr Q8H THOMAS Administration Sodium Chloride 100 mls @ 999 mls/hr 01/27/21 18:37 Nacl 0.9% IV [place] PRN Hypotension Amino Acids/Electrolytes/Dextrose 2,016 mls @ 84 mls/hr 01/31/21 20:00 01/31/21 20:55 Tpn Adult IV 02/01/21 19:59 84 mls/hr DAILY@2000 [facility] Administration Protocol Insulin Glargine 5 units 01/18/21 22:00 01/31/21 23:38 Insulin Glargine 100 Units/Ml SUB-Q Not Given QHS [facility] Insulin Human Lispro 0 unit 01/03/21 12:00 02/01/21 06:51 Insulin Lispro 100 Unit/Ml SUB-Q Not Given Q6HR THOMAS Protocol Metoprolol Tartrate 5 mg 12/30/20 12:00 02/01/21 06:10 Metoprolol Tartrate 5 Mg/5 Ml Inj IV 5 mg Q4HR THOMAS Administration Ondansetron HCl 4 mg 01/25/21 11:56 01/31/21 21:30 Ondansetron 4 Mg/2 Ml Inj IV 4 mg Q4H PRN Administration Nausea And Vomiting Scopolamine 1 each 01/15/21 11:00 01/30/21 18:19 Scopolamine Transdermal Patch 72 Hr TD 1 each Q3D THOMAS Administration Sodium Chloride 10 ml 12/22/20 22:00 01/31/21 22:31 Sodium Chloride 0.9% 10 Ml Flush Syringe IV 10 ml BID THOMAS Administration Sodium Chloride 10 ml 12/22/20 19:42 01/29/21 02:08 Sodium Chloride 0.9% 10 Ml Flush Syringe IV 10 ml PRN PRN Administration LINE FLUSH
--- NOTE | 2021-02-01 13:44 | Progress Note ---
Assessment and Plan This is a 60 YO Male with ESRD on PD, GERD, Crohn's Disease, Nicotine Dependence, HTN, Systolic CHF(EF 35%) who presented to the emergency department on 12/22 with complaints of abdominal pain which began shortly after eating fast food rated 10/10 which is periumbilical, constant, associated with fever, nausea and multiple sites of vomiting and self-reported inability to undergo PD. In the emergency room patient underwent a CT scan of the abdomen/pelvis which revealed evidence of partial small bowel obstruction, symptoms were consistent with bacterial peritonitis. Patient was admitted to the hospital service with sepsis, peritonitis, and small bowel obstruction with consults to general surgery, nephrology, infectious disease and [facility]. On 01/06/21 the patient underwent an exploratory laparotomy, jejunal colonic anastomosis, and segmental small bowel resection. ABG's (01/07/21): pH 7.345 pH POC ABG pCO2 41.4 mmHg ABG pCO2 40.3 mm Hg POC ABG pO2 94.5 mmHg ABG pO2 67.4 mm Hg POC ABG HCO3 22.7 ABG O2 Saturation 94.3 % atient alert, awake . Patient receiving hemodialysis at this time. Patient is on room air. O2 saturation 96%. No acute respiratory distress. Patient running low grade temp. Has mild leukocytosis. Blood pressure 147/80. Patient is on Clonadine and metoprol. Management as per primary care. Chest x-ray 01/03/21 reported There is decreased inspiration compared to yesterday's exam. Hazy opacity in the right perihilar region and larger area of infiltration in the left lower lung appears stable given differences in the level of inspiration. No large pleural effusion or pneumothorax. Patient presently on s/c heparin, famotidin - Patient Problems (1) Nicotine dependence Current Visit: Yes Status: Acute Qualifiers: Nicotine product type: cigarettes Substance use status: in withdrawal Qualified Code(s): F17.213 - Nicotine dependence, cigarettes, with withdrawal Plan to address problem: Counseled patient to stop smoking. (2) SOB (shortness of breath) Current Visit: No Status: Acute Plan to address problem: Improved. Patient resting on room air at this time. O2 saturation 96%. (3) Atrial fibrillation Current Visit: Yes Status: Acute Plan to address problem: Management as per cardiology. (4) CHF (congestive heart failure) Current Visit: No Status: Acute Qualifiers: Heart failure chronicity: chronic Plan to address problem: Management as per cardiology. (5) Small bowel obstruction Current Visit: Yes Status: Acute Plan to address problem: On 01/06/21 the patient underwent an exploratory laparotomy, jejunal colonic anastomosis, and segmental small bowel resection. Management as per surgery. Continue incentive spirometry (6) Small intestinal gangrene Current Visit: Yes Status: Acute Plan to address problem: On 01/06/21 the patient underwent an exploratory laparotomy, jejunal colonic anastomosis, and segmental small bowel resection. Management as per surgery. Continue incentive spirometry (7) Accelerated hypertension Current Visit: No Status: Acute Plan to address problem: Management as per primary care. (8) Acute on chronic kidney disease, stage 3 Current Visit: No Status: Acute Plan to address problem: Management as per nephrology. Subjective Date of service: 02/01/21 Principal diagnosis: Ac hypoxemic resp failure; Severe Sepsis; Peritonitis; Acute SBO; ESRD; CHF Interval history: This is a 60 YO Male with ESRD on PD, GERD, Crohn's Disease, Nicotine Dependence , HTN, Systolic CHF(EF 35%) who presented to the emergency department on 12/22 with complaints of abdominal pain which began shortly after eating fast food rated 10/10 which is periumbilical, constant, associated with fever, nausea and multiple sites of vomiting and self-reported inability to undergo PD. In the emergency room patient underwent a CT scan of the abdomen/pelvis which revealed evidence of partial small bowel obstruction, symptoms were consistent with bacterial peritonitis. Patient was admitted to the hospital service with sepsis, peritonitis, and small bowel obstruction with consults to general surgery, nephrology, infectious disease and [facility]. On 01/06/21 the patient underwent an exploratory laparotomy, jejunal colonic anastomosis, and segmental small bowel resection. ABG's (01/07/21): pH 7.345 pH POC ABG pCO2 41.4 mmHg ABG pCO2 40.3 mm Hg POC ABG pO2 94.5 mmHg ABG pO2 67.4 mm Hg POC ABG HCO3 22.7 ABG O2 Saturation 94.3 % Patient alert, awake . Patient receiving hemodialysis at this time. Patient is on room air. O2 saturation 96%. No acute respiratory distress. Patient running low grade temp. Has mild leukocytosis. Blood pressure 147/80. Patient is on Clonadine and metoprol. Management as per primary care. Chest x-ray 01/03/21 reported There is decreased inspiration compared to yesterday's exam. Hazy opacity in the right perihilar region and larger area of infiltration in the left lower lung appears stable given differences in the level of inspiration. No large pleural effusion or pneumothorax. Patient presently on s/c heparin, famotidine Objective Vital Signs - 12hr 02/01/21 02/01/21 02/01/21 02:50 02:55 03:00 Temperature Pulse Rate 87 75 Respiratory Rate Respiratory 16 Rate [Anterior Abdomen] Blood Pressure 163/79 171/84 O2 Sat by Pulse Oximetry 02/01/21 02/01/21 02/01/21 05:15 06:01 06:10 Temperature 98.6 F Pulse Rate 71 71 74 Respiratory 20 Rate Respiratory Rate [Anterior Abdomen] Blood Pressure 165/78 165/78 165/70 O2 Sat by Pulse 96 Oximetry Constitutional: no acute distress, alert Eyes: non-icteric ENT: oropharynx dry, oropharyngeal exudate pre Neck: supple, no lymphadenopathy, no JVD Effort: normal Ascultation: Bilateral: diminished breath sounds, rales, rhonchi Percussion: Bilateral: not dull Cardiovascular: regular rate and rhythm, other (S1,S2) Gastrointestinal: hypoactive bowel sounds, soft, non-tender, non-distended (protuberant), other (Midline abdominal incision; + HARIS drain in place) Integumentary: other (Midline abdominal incision ) Extremities: no cyanosis, no edema, pulses normal, no ischemia or petechiae Neurologic: non-focal exam (grossly), pupils equal and round, CN II-XII normal Psychiatric: mood appropriate, affect normal CBC and BMP: 01/27/21 04:19 01/30/21 04:15 ABG, PT/INR, D-dimer: ABG ABG pH 7.345 pH Units (7.350-7.450) L 01/07/21 17:14 POC ABG pCO2 41.4 mmHg (32.0-48.0) 01/07/21 03:07 ABG pCO2 40.3 mm Hg 01/07/21 17:14 POC ABG pO2 94.5 mmHg (83-108) 01/07/21 03:07 ABG pO2 67.4 mm Hg (80.0-90.0) L 01/07/21 17:14 POC ABG HCO3 22.7 01/07/21 03:07 ABG O2 Saturation 94.3 % (95.0-99.0) L 01/07/21 17:14 PT/INR, D-dimer PT 16.9 Sec. (12.2-14.9) H 01/01/21 12:45 INR 1.39 (0.87-1.13) H 01/01/21 12:45 Abnormal lab findings: Abnormal Labs 12/22/20 12/22/20 12/22/20 14:38 14:38 14:38 WBC RBC Hgb 11.2 L Hct 35.0 L MCV MCHC RDW 16.7 H Plt Count Lymph % (Auto) Menard % (Auto) Eos % (Auto) Lymph # (Auto) Menard # (Auto) Eos # (Auto) Seg Neutrophils % Seg Neuts % (Manual) 94.0 H Lymphocytes % (Manual) 5.0 L Monocytes % (Manual) Seg Neutrophils # Seg Neutrophils # Man Lymphocytes # (Manual) 0.3 L Monocytes # (Manual) PT INR ABG pH POC ABG pCO2 POC ABG pO2 ABG pO2 ABG HCO3 ABG O2 Saturation ABG Base Excess ABG Hemoglobin ABG Oxyhemoglobin ABG Sodium ABG Potassium ABG Chloride ABG Glucose Oxyhemoglobin Sodium Potassium Chloride Carbon Dioxide BUN 58 H Creatinine 13.2 H Glucose 113 H POC Glucose Lactic Acid 3.60 H* Calcium Phosphorus Magnesium Total Bilirubin 1.30 H AST ALT Alkaline Phosphatase 155 H Total Protein Albumin Triglycerides Arterial Blood Glucose Arterial Blood Ionized Calcium Digoxin Crossmatch 12/22/20 12/22/20 12/23/20 16:26 17:47 05:22 WBC RBC Hgb Hct MCV MCHC RDW Plt Count Lymph % (Auto) Menard % (Auto) Eos % (Auto) Lymph # (Auto) [place]ard # (Auto) Eos # (Auto) Seg Neutrophils % Seg Neuts % (Manual) Lymphocytes % (Manual) Monocytes % (Manual) Seg Neutrophils # Seg Neutrophils # Man Lymphocytes # (Manual) Monocytes # (Manual) PT INR ABG pH POC ABG pCO2 POC ABG pO2 ABG pO2 ABG HCO3 ABG O2 Saturation ABG Base Excess ABG Hemoglobin ABG Oxyhemoglobin ABG Sodium ABG Potassium ABG Chloride ABG Glucose Oxyhemoglobin Sodium Potassium Chloride Carbon Dioxide BUN Creatinine Glucose POC Glucose Lactic Acid 2.80 H* 3.10 H* 2.30 H* Calcium Phosphorus Magnesium Total Bilirubin AST ALT Alkaline Phosphatase Total Protein Albumin Triglycerides Arterial Blood Glucose Arterial Blood Ionized Calcium Digoxin Crossmatch 12/23/20 12/23/20 12/23/20 05:22 05:22 06:35 WBC 12.1 H RBC Hgb 11.0 L Hct 33.7 L MCV MCHC RDW 16.9 H Plt Count Lymph % (Auto) [place]ard % (Auto) Eos % (Auto) Lymph # (Auto) [place]ard # (Auto) Eos # (Auto) Seg Neutrophils % Seg Neuts % (Manual) 93.0 H Lymphocytes % (Manual) 1.0 L Monocytes % (Manual) Seg Neutrophils # Seg Neutrophils # Man 11.3 H Lymphocytes # (Manual) 0.1 L Monocytes # (Manual) PT INR ABG pH POC ABG pCO2 POC ABG pO2 ABG pO2 ABG HCO3 ABG O2 Saturation ABG Base Excess ABG Hemoglobin ABG Oxyhemoglobin ABG Sodium ABG Potassium ABG Chloride ABG Glucose Oxyhemoglobin Sodium Potassium 5.7 H D Chloride Carbon Dioxide BUN 73 H Creatinine 14.2 H Glucose POC Glucose Lactic Acid 2.30 H* Calcium 7.9 L Phosphorus Magnesium Total Bilirubin 1.40 H AST 119 H ALT 130 H Alkaline Phosphatase 183 H Total Protein 6.1 L Albumin 3.6 L Triglycerides Arterial Blood Glucose Arterial Blood Ionized Calcium Digoxin Crossmatch 12/23/20 12/23/20 12/23/20 11:40 13:53 16:47 WBC RBC Hgb 10.0 L Hct 30.4 L MCV MCHC RDW Plt Count Lymph % (Auto) Menard % (Auto) Eos % (Auto) Lymph # (Auto) [place]ard # (Auto) Eos # (Auto) Seg Neutrophils % Seg Neuts % (Manual) Lymphocytes % (Manual) Monocytes % (Manual) Seg Neutrophils # Seg Neutrophils # Man Lymphocytes # (Manual) Monocytes # (Manual) PT INR ABG pH POC ABG pCO2 POC ABG pO2 137.5 H ABG pO2 ABG HCO3 ABG O2 Saturation ABG Base Excess ABG Hemoglobin 9.7 L ABG Oxyhemoglobin ABG Sodium 134.1 L ABG Potassium 6.6 H ABG Chloride ABG Glucose 103 H Oxyhemoglobin Sodium Potassium Chloride Carbon Dioxide BUN Creatinine Glucose POC Glucose Lactic Acid Calcium Phosphorus Magnesium Total Bilirubin AST ALT Alkaline Phosphatase Total Protein Albumin Triglycerides Arterial Blood Glucose 103 H Arterial Blood Ionized Calcium 3.8 L Digoxin Crossmatch See Detail 12/23/20 12/23/20 12/24/20 20:35 20:40 01:20 WBC RBC Hgb Hct MCV MCHC RDW Plt Count Lymph % (Auto) Menard % (Auto) Eos % (Auto) Lymph # (Auto) Menard # (Auto) Eos # (Auto) Seg Neutrophils % Seg Neuts % (Manual) Lymphocytes % (Manual) Monocytes % (Manual) Seg Neutrophils # Seg Neutrophils # Man Lymphocytes # (Manual) Monocytes # (Manual) PT INR ABG pH 7.252 L POC ABG pCO2 POC ABG pO2 ABG pO2 50.1 L ABG HCO3 ABG O2 Saturation 81.1 L ABG Base Excess -5.9 L ABG Hemoglobin 12.1 L ABG Oxyhemoglobin ABG Sodium ABG Potassium ABG Chloride ABG Glucose Oxyhemoglobin 78.6 L Sodium 134 L Potassium 6.9 H* D 6.3 H* Chloride Carbon Dioxide 18 L 20 L BUN 87 H 91 H Creatinine 15.3 H 15.3 H Glucose 103 H POC Glucose Lactic Acid Calcium 6.9 L 7.5 L Phosphorus Magnesium Total Bilirubin AST ALT Alkaline Phosphatase Total Protein Albumin Triglycerides Arterial Blood Glucose Arterial Blood Ionized Calcium Digoxin Crossmatch 12/24/20 12/24/20 12/24/20 04:00 10:29 10:29 WBC RBC 3.49 L Hgb 10.5 L Hct 31.2 L MCV MCHC RDW 17.5 H Plt Count 124 L Lymph % (Auto) 3.7 L Menard % (Auto) 9.8 H Eos % (Auto) Lymph # (Auto) 0.2 L Menard # (Auto) Eos # (Auto) Seg Neutrophils % 85.9 H Seg Neuts % (Manual) Lymphocytes % (Manual) Monocytes % (Manual) Seg Neutrophils # Seg Neutrophils # Man Lymphocytes # (Manual) Monocytes # (Manual) PT INR ABG pH POC ABG pCO2 28.1 L POC ABG pO2 ABG pO2 ABG HCO3 ABG O2 Saturation ABG Base Excess ABG Hemoglobin ABG Oxyhemoglobin ABG Sodium 133.9 L ABG Potassium 5.3 H ABG Chloride 108.0 H ABG Glucose Oxyhemoglobin Sodium Potassium 5.6 H Chloride Carbon Dioxide 19 L BUN 99 H Creatinine 16.9 H Glucose 52 L POC Glucose Lactic Acid Calcium 7.6 L Phosphorus Magnesium Total Bilirubin 3.50 H AST 67 H ALT 71 H Alkaline Phosphatase Total Protein 3.5 L D Albumin 2.1 L Triglycerides Arterial Blood Glucose Arterial Blood Ionized Calcium 4.0 L Digoxin Crossmatch 12/25/20 12/25/20 12/25/20 03:33 04:00 04:00 WBC 3.8 L RBC 2.90 L Hgb 8.6 L Hct 25.7 L MCV MCHC RDW 16.7 H Plt Count 113 L Lymph % (Auto) Menard % (Auto) Eos % (Auto) Lymph # (Auto) [place]ard # (Auto) Eos # (Auto) Seg Neutrophils % Seg Neuts % (Manual) Lymphocytes % (Manual) Monocytes % (Manual) Seg Neutrophils # Seg Neutrophils # Man Lymphocytes # (Manual) Monocytes # (Manual) PT INR ABG pH 7.544 H POC ABG pCO2 28.2 L POC ABG pO2 62.8 L ABG pO2 ABG HCO3 ABG O2 Saturation ABG Base Excess ABG Hemoglobin 9.3 L ABG Oxyhemoglobin 93.0 L ABG Sodium 130.3 L ABG Potassium ABG Chloride ABG Glucose 97 H Oxyhemoglobin Sodium Potassium Chloride Carbon Dioxide BUN 62 H Creatinine 11.4 H Glucose POC Glucose Lactic Acid Calcium 7.7 L Phosphorus 5.00 H Magnesium Total Bilirubin AST ALT Alkaline Phosphatase Total Protein Albumin Triglycerides Arterial Blood Glucose 97 H Arterial Blood Ionized Calcium 3.9 L Digoxin Crossmatch 12/26/20 12/26/20 12/27/20 04:46 Unknown 03:40 WBC 4.1 L RBC 2.61 L Hgb 7.8 L Hct 23.4 L MCV MCHC RDW 17.1 H Plt Count 119 L Lymph % (Auto) 5.3 L Menard % (Auto) 10.6 H Eos % (Auto) Lymph # (Auto) 0.2 L [place]ard # (Auto) Eos # (Auto) Seg Neutrophils % 78.8 H Seg Neuts % (Manual) Lymphocytes % (Manual) Monocytes % (Manual) Seg Neutrophils # Seg Neutrophils # Man Lymphocytes # (Manual) Monocytes # (Manual) PT INR ABG pH 7.333 L 7.332 L POC ABG pCO2 POC ABG pO2 ABG pO2 ABG HCO3 26.9 H ABG O2 Saturation ABG Base Excess -2.4 L ABG Hemoglobin 6.8 L 7.2 L ABG Oxyhemoglobin ABG Sodium ABG Potassium ABG Chloride ABG Glucose Oxyhemoglobin 93.0 L 93.1 L Sodium Potassium Chloride Carbon Dioxide BUN Creatinine Glucose POC Glucose Lactic Acid Calcium Phosphorus Magnesium Total Bilirubin AST ALT Alkaline Phosphatase Total Protein Albumin Triglycerides Arterial Blood Glucose Arterial Blood Ionized Calcium Digoxin Crossmatch 12/27/20 12/27/20 12/27/20 06:40 06:40 11:22 WBC 4.4 L RBC 2.49 L Hgb 7.4 L Hct 22.4 L MCV MCHC RDW 17.1 H Plt Count 111 L Lymph % (Auto) 6.7 L Menard % (Auto) 12.6 H Eos % (Auto) Lymph # (Auto) 0.3 L [place]ard # (Auto) Eos # (Auto) Seg Neutrophils % 77.6 H Seg Neuts % (Manual) Lymphocytes % (Manual) Monocytes % (Manual) Seg Neutrophils # Seg Neutrophils # Man Lymphocytes # (Manual) Monocytes # (Manual) PT INR ABG pH POC ABG pCO2 POC ABG pO2 ABG pO2 ABG HCO3 ABG O2 Saturation ABG Base Excess ABG Hemoglobin ABG Oxyhemoglobin ABG Sodium ABG Potassium ABG Chloride ABG Glucose Oxyhemoglobin Sodium Potassium Chloride Carbon Dioxide BUN 64 H Creatinine 9.8 H Glucose 147 H POC Glucose 134 H Lactic Acid Calcium 8.3 L Phosphorus 5.00 H Magnesium Total Bilirubin 3.70 H AST 72 H ALT Alkaline Phosphatase 142 H Total Protein 5.1 L D Albumin 2.9 L Triglycerides Arterial Blood Glucose Arterial Blood Ionized Calcium Digoxin Crossmatch 12/27/20 12/27/20 12/28/20 17:29 23:31 03:09 WBC RBC Hgb Hct MCV MCHC RDW Plt Count Lymph % (Auto) Menard % (Auto) Eos % (Auto) Lymph # (Auto) [place]ard # (Auto) Eos # (Auto) Seg Neutrophils % Seg Neuts % (Manual) Lymphocytes % (Manual) Monocytes % (Manual) Seg Neutrophils # Seg Neutrophils # Man Lymphocytes # (Manual) Monocytes # (Manual) PT INR ABG pH 7.474 H POC ABG pCO2 POC ABG pO2 ABG pO2 ABG HCO3 ABG O2 Saturation ABG Base Excess ABG Hemoglobin 7.8 L ABG Oxyhemoglobin ABG Sodium ABG Potassium ABG Chloride ABG Glucose Oxyhemoglobin Sodium Potassium Chloride Carbon Dioxide BUN Creatinine Glucose POC Glucose 121 H 131 H Lactic Acid Calcium Phosphorus Magnesium Total Bilirubin AST ALT Alkaline Phosphatase Total Protein Albumin Triglycerides Arterial Blood Glucose Arterial Blood Ionized Calcium Digoxin Crossmatch 12/28/20 12/28/20 12/28/20 05:37 05:40 05:40 WBC 4.3 L RBC 2.40 L Hgb 7.2 L Hct 21.5 L MCV MCHC RDW 17.4 H Plt Count 112 L Lymph % (Auto) 6.5 L Menard % (Auto) 16.7 H Eos % (Auto) Lymph # (Auto) 0.3 L [place]ard # (Auto) Eos # (Auto) Seg Neutrophils % 71.1 H Seg Neuts % (Manual) Lymphocytes % (Manual) Monocytes % (Manual) Seg Neutrophils # Seg Neutrophils # Man Lymphocytes # (Manual) Monocytes # (Manual) PT INR ABG pH POC ABG pCO2 POC ABG pO2 ABG pO2 ABG HCO3 ABG O2 Saturation ABG Base Excess ABG Hemoglobin ABG Oxyhemoglobin ABG Sodium ABG Potassium ABG Chloride ABG Glucose Oxyhemoglobin Sodium Potassium Chloride Carbon Dioxide BUN 85 H Creatinine 11.5 H Glucose 132 H POC Glucose 121 H Lactic Acid Calcium 8.2 L Phosphorus Magnesium 2.40 H Total Bilirubin 3.80 H AST 70 H ALT Alkaline Phosphatase 176 H Total Protein 5.0 L Albumin 2.9 L Triglycerides Arterial Blood Glucose Arterial Blood Ionized Calcium Digoxin Crossmatch 12/28/20 12/28/20 12/28/20 11:34 15:00 17:35 WBC RBC Hgb Hct MCV MCHC RDW Plt Count Lymph % (Auto) [place]ard % (Auto) Eos % (Auto) Lymph # (Auto) [place]ard # (Auto) Eos # (Auto) Seg Neutrophils % Seg Neuts % (Manual) Lymphocytes % (Manual) Monocytes % (Manual) Seg Neutrophils # Seg Neutrophils # Man Lymphocytes # (Manual) Monocytes # (Manual) PT INR ABG pH 7.461 H POC ABG pCO2 POC ABG pO2 72.2 L ABG pO2 ABG HCO3 ABG O2 Saturation ABG Base Excess ABG Hemoglobin 8.2 L ABG Oxyhemoglobin 93.6 L ABG Sodium 134.1 L ABG Potassium 3.2 L ABG Chloride ABG Glucose 135 H Oxyhemoglobin Sodium Potassium Chloride Carbon Dioxide BUN Creatinine Glucose POC Glucose 137 H 144 H Lactic Acid Calcium Phosphorus Magnesium Total Bilirubin AST ALT Alkaline Phosphatase Total Protein Albumin Triglycerides Arterial Blood Glucose 135 H Arterial Blood Ionized Calcium 4.4 L Digoxin Crossmatch 12/28/20 12/28/20 12/29/20 19:44 Unknown 00:21 WBC RBC Hgb Hct MCV MCHC RDW Plt Count Lymph % (Auto) [place]ard % (Auto) Eos % (Auto) Lymph # (Auto) [place]ard # (Auto) Eos # (Auto) Seg Neutrophils % Seg Neuts % (Manual) Lymphocytes % (Manual) Monocytes % (Manual) Seg Neutrophils # Seg Neutrophils # Man Lymphocytes # (Manual) Monocytes # (Manual) PT INR ABG pH 7.474 H POC ABG pCO2 POC ABG pO2 ABG pO2 ABG HCO3 ABG O2 Saturation ABG Base Excess ABG Hemoglobin 7.8 L ABG Oxyhemoglobin ABG Sodium 133.2 L ABG Potassium ABG Chloride ABG Glucose 139 H Oxyhemoglobin Sodium 135 L Potassium Chloride 96.6 L Carbon Dioxide BUN 47 H Creatinine 7.4 H Glucose 130 H POC Glucose 142 H Lactic Acid Calcium 8.3 L Phosphorus Magnesium Total Bilirubin AST ALT Alkaline Phosphatase Total Protein Albumin Triglycerides Arterial Blood Glucose 139 H Arterial Blood Ionized Calcium 4.3 L Digoxin Crossmatch 12/29/20 12/29/20 12/29/20 05:16 05:16 05:26 WBC RBC 2.53 L Hgb 7.7 L Hct 22.8 L MCV MCHC RDW 17.0 H Plt Count 130 L Lymph % (Auto) [place]ard % (Auto) Eos % (Auto) Lymph # (Auto) [place]ard # (Auto) Eos # (Auto) Seg Neutrophils % Seg Neuts % (Manual) 79.0 H Lymphocytes % (Manual) 9.0 L Monocytes % (Manual) Seg Neutrophils # Seg Neutrophils # Man Lymphocytes # (Manual) 0.6 L Monocytes # (Manual) PT INR ABG pH POC ABG pCO2 POC ABG pO2 ABG pO2 ABG HCO3 ABG O2 Saturation ABG Base Excess ABG Hemoglobin ABG Oxyhemoglobin ABG Sodium ABG Potassium ABG Chloride ABG Glucose Oxyhemoglobin Sodium Potassium 3.4 L Chloride 96.6 L Carbon Dioxide BUN 59 H Creatinine 8.3 H Glucose 127 H POC Glucose 141 H Lactic Acid Calcium 8.2 L Phosphorus Magnesium Total Bilirubin 3.00 H AST 88 H ALT Alkaline Phosphatase 188 H Total Protein 5.1 L Albumin 2.8 L Triglycerides Arterial Blood Glucose Arterial Blood Ionized Calcium Digoxin Crossmatch 12/29/20 12/29/20 12/29/20 11:33 17:29 23:22 WBC RBC Hgb Hct MCV MCHC RDW Plt Count Lymph % (Auto) Menard % (Auto) Eos % (Auto) Lymph # (Auto) [place]ard # (Auto) Eos # (Auto) Seg Neutrophils % Seg Neuts % (Manual) Lymphocytes % (Manual) Monocytes % (Manual) Seg Neutrophils # Seg Neutrophils # Man Lymphocytes # (Manual) Monocytes # (Manual) PT INR ABG pH POC ABG pCO2 POC ABG pO2 ABG pO2 ABG HCO3 ABG O2 Saturation ABG Base Excess ABG Hemoglobin ABG Oxyhemoglobin ABG Sodium ABG Potassium ABG Chloride ABG Glucose Oxyhemoglobin Sodium Potassium Chloride Carbon Dioxide BUN Creatinine Glucose POC Glucose 144 H 130 H 117 H Lactic Acid Calcium Phosphorus Magnesium Total Bilirubin AST ALT Alkaline Phosphatase Total Protein Albumin Triglycerides Arterial Blood Glucose Arterial Blood Ionized Calcium Digoxin Crossmatch 12/30/20 12/30/20 12/30/20 05:23 08:15 09:00 WBC RBC Hgb Hct MCV MCHC RDW Plt Count Lymph % (Auto) [place]ard % (Auto) Eos % (Auto) Lymph # (Auto) [place]ard # (Auto) Eos # (Auto) Seg Neutrophils % Seg Neuts % (Manual) Lymphocytes % (Manual) Monocytes % (Manual) Seg Neutrophils # Seg Neutrophils # Man Lymphocytes # (Manual) Monocytes # (Manual) PT INR ABG pH POC ABG pCO2 POC ABG pO2 ABG pO2 ABG HCO3 ABG O2 Saturation ABG Base Excess ABG Hemoglobin ABG Oxyhemoglobin ABG Sodium ABG Potassium ABG Chloride ABG Glucose Oxyhemoglobin Sodium 135 L Potassium Chloride 95.9 L Carbon Dioxide BUN 85 H Creatinine 10.6 H Glucose 128 H POC Glucose 135 H 127 H Lactic Acid Calcium 8.3 L Phosphorus Magnesium Total Bilirubin 2.40 H AST 85 H ALT Alkaline Phosphatase 216 H Total Protein 5.3 L Albumin 2.6 L Triglycerides 155 H Arterial Blood Glucose Arterial Blood Ionized Calcium Digoxin Crossmatch 12/30/20 12/30/20 12/30/20 09:00 11:53 15:49 WBC RBC 2.61 L Hgb 7.8 L Hct 23.7 L MCV MCHC RDW 17.3 H Plt Count Lymph % (Auto) [place]ard % (Auto) Eos % (Auto) Lymph # (Auto) [place]ard # (Auto) Eos # (Auto) Seg Neutrophils % Seg Neuts % (Manual) Lymphocytes % (Manual) Monocytes % (Manual) Seg Neutrophils # Seg Neutrophils # Man Lymphocytes # (Manual) Monocytes # (Manual) PT INR ABG pH POC ABG pCO2 POC ABG pO2 ABG pO2 ABG HCO3 ABG O2 Saturation ABG Base Excess ABG Hemoglobin ABG Oxyhemoglobin ABG Sodium ABG Potassium ABG Chloride ABG Glucose Oxyhemoglobin Sodium Potassium Chloride Carbon Dioxide BUN Creatinine Glucose POC Glucose 155 H 146 H Lactic Acid Calcium Phosphorus Magnesium Total Bilirubin AST ALT Alkaline Phosphatase Total Protein Albumin Triglycerides Arterial Blood Glucose Arterial Blood Ionized Calcium Digoxin Crossmatch 12/30/20 12/30/20 12/31/20 17:53 23:45 03:56 WBC RBC Hgb Hct MCV MCHC RDW Plt Count Lymph % (Auto) [place]ard % (Auto) Eos % (Auto) Lymph # (Auto) [place]ard # (Auto) Eos # (Auto) Seg Neutrophils % Seg Neuts % (Manual) Lymphocytes % (Manual) Monocytes % (Manual) Seg Neutrophils # Seg Neutrophils # Man Lymphocytes # (Manual) Monocytes # (Manual) PT INR ABG pH POC ABG pCO2 POC ABG pO2 49.4 L ABG pO2 ABG HCO3 ABG O2 Saturation ABG Base Excess ABG Hemoglobin 10.3 L ABG Oxyhemoglobin 84.2 L ABG Sodium 133.1 L ABG Potassium ABG Chloride ABG Glucose 173 H Oxyhemoglobin Sodium Potassium Chloride Carbon Dioxide BUN Creatinine Glucose POC Glucose 139 H 173 H Lactic Acid Calcium Phosphorus Magnesium Total Bilirubin AST ALT Alkaline Phosphatase Total Protein Albumin Triglycerides Arterial Blood Glucose 173 H Arterial Blood Ionized Calcium Digoxin Crossmatch 12/31/20 12/31/20 12/31/20 05:07 06:51 06:51 WBC 20.3 H RBC 3.32 L Hgb 9.8 L Hct 30.3 L D MCV MCHC RDW 17.3 H Plt Count Lymph % (Auto) [place]ard % (Auto) Eos % (Auto) Lymph # (Auto) [place]ard # (Auto) Eos # (Auto) Seg Neutrophils % Seg Neuts % (Manual) 87.0 H Lymphocytes % (Manual) 10.0 L Monocytes % (Manual) Seg Neutrophils # Seg Neutrophils # Man 17.7 H Lymphocytes # (Manual) Monocytes # (Manual) PT INR ABG pH POC ABG pCO2 POC ABG pO2 ABG pO2 ABG HCO3 ABG O2 Saturation ABG Base Excess ABG Hemoglobin ABG Oxyhemoglobin ABG Sodium ABG Potassium ABG Chloride ABG Glucose Oxyhemoglobin Sodium Potassium 5.2 H D Chloride Carbon Dioxide BUN 62 H Creatinine 8.4 H Glucose 116 H POC Glucose 120 H Lactic Acid Calcium Phosphorus Magnesium 1.60 L Total Bilirubin AST ALT Alkaline Phosphatase Total Protein Albumin Triglycerides Arterial Blood Glucose Arterial Blood Ionized Calcium Digoxin Crossmatch 12/31/20 12/31/20 12/31/20 09:38 12:19 12:22 WBC RBC Hgb Hct MCV MCHC RDW Plt Count Lymph % (Auto) [place]ard % (Auto) Eos % (Auto) Lymph # (Auto) [place]ard # (Auto) Eos # (Auto) Seg Neutrophils % Seg Neuts % (Manual) Lymphocytes % (Manual) Monocytes % (Manual) Seg Neutrophils # Seg Neutrophils # Man Lymphocytes # (Manual) Monocytes # (Manual) PT INR ABG pH POC ABG pCO2 POC ABG pO2 ABG pO2 354.0 H ABG HCO3 ABG O2 Saturation 99.6 H ABG Base Excess ABG Hemoglobin 9.1 L ABG Oxyhemoglobin ABG Sodium ABG Potassium ABG Chloride ABG Glucose Oxyhemoglobin Sodium Potassium 5.2 H Chloride Carbon Dioxide BUN Creatinine Glucose POC Glucose 132 H Lactic Acid Calcium Phosphorus Magnesium Total Bilirubin AST ALT Alkaline Phosphatase Total Protein Albumin Triglycerides Arterial Blood Glucose Arterial Blood Ionized Calcium Digoxin Crossmatch 12/31/20 01/01/21 01/01/21 23:23 03:03 05:04 WBC RBC Hgb Hct MCV MCHC RDW Plt Count Lymph % (Auto) [place] % (Auto) Eos % (Auto) Lymph # (Auto) [place] # (Auto) Eos # (Auto) Seg Neutrophils % Seg Neuts % (Manual) Lymphocytes % (Manual) Monocytes % (Manual) Seg Neutrophils # Seg Neutrophils # Man Lymphocytes # (Manual) Monocytes # (Manual) PT INR ABG pH POC ABG pCO2 POC ABG pO2 79.6 L ABG pO2 ABG HCO3 ABG O2 Saturation ABG Base Excess ABG Hemoglobin 9.2 L ABG Oxyhemoglobin ABG Sodium 131.6 L ABG Potassium 5.8 H ABG Chloride ABG Glucose 177 H Oxyhemoglobin Sodium Potassium Chloride Carbon Dioxide BUN Creatinine Glucose POC Glucose 174 H 167 H Lactic Acid Calcium Phosphorus Magnesium Total Bilirubin AST ALT Alkaline Phosphatase Total Protein Albumin Triglycerides Arterial Blood Glucose 177 H Arterial Blood Ionized Calcium Digoxin Crossmatch 01/01/21 01/01/21 01/01/21 07:31 07:31 11:31 WBC 26.1 H RBC 2.95 L Hgb 8.6 L Hct 27.1 L MCV MCHC RDW 18.2 H Plt Count Lymph % (Auto) [place] % (Auto) Eos % (Auto) Lymph # (Auto) [place] # (Auto) Eos # (Auto) Seg Neutrophils % Seg Neuts % (Manual) 96.0 H Lymphocytes % (Manual) 4.0 L Monocytes % (Manual) Seg Neutrophils # Seg Neutrophils # Man 25.1 H Lymphocytes # (Manual) 1.0 L Monocytes # (Manual) PT INR ABG pH POC ABG pCO2 POC ABG pO2 ABG pO2 ABG HCO3 ABG O2 Saturation ABG Base Excess ABG Hemoglobin ABG Oxyhemoglobin ABG Sodium ABG Potassium ABG Chloride ABG Glucose Oxyhemoglobin Sodium Potassium 6.0 H Chloride Carbon Dioxide 21 L BUN 89 H Creatinine 10.5 H Glucose 179 H POC Glucose Lactic Acid Calcium Phosphorus Magnesium Total Bilirubin AST ALT Alkaline Phosphatase Total Protein Albumin Triglycerides Arterial Blood Glucose Arterial Blood Ionized Calcium Digoxin Crossmatch See Detail 01/01/21 01/01/21 01/01/21 11:51 12:45 16:52 WBC RBC Hgb Hct MCV MCHC RDW Plt Count Lymph % (Auto) [place] % (Auto) Eos % (Auto) Lymph # (Auto) [place] # (Auto) Eos # (Auto) Seg Neutrophils % Seg Neuts % (Manual) Lymphocytes % (Manual) Monocytes % (Manual) Seg Neutrophils # Seg Neutrophils # Man Lymphocytes # (Manual) Monocytes # (Manual) PT 16.9 H INR 1.39 H ABG pH POC ABG pCO2 POC ABG pO2 ABG pO2 ABG HCO3 ABG O2 Saturation ABG Base Excess ABG Hemoglobin ABG Oxyhemoglobin ABG Sodium ABG Potassium ABG Chloride ABG Glucose Oxyhemoglobin Sodium Potassium Chloride Carbon Dioxide BUN Creatinine Glucose POC Glucose 157 H 177 H Lactic Acid Calcium Phosphorus Magnesium Total Bilirubin AST ALT Alkaline Phosphatase Total Protein Albumin Triglycerides Arterial Blood Glucose Arterial Blood Ionized Calcium Digoxin Crossmatch 01/01/21 01/01/21 01/01/21 17:58 17:58 20:12 WBC 26.9 H RBC 3.14 L Hgb 9.3 L Hct 29.6 L MCV MCHC RDW 17.5 H Plt Count Lymph % (Auto) [place] % (Auto) Eos % (Auto) Lymph # (Auto) [place] # (Auto) Eos # (Auto) Seg Neutrophils % Seg Neuts % (Manual) 84.0 H Lymphocytes % (Manual) 4.0 L Monocytes % (Manual) 12.0 H Seg Neutrophils # Seg Neutrophils # Man 22.6 H Lymphocytes # (Manual) 1.1 L Monocytes # (Manual) 3.2 H PT INR ABG pH POC ABG pCO2 POC ABG pO2 ABG pO2 ABG HCO3 ABG O2 Saturation ABG Base Excess ABG Hemoglobin ABG Oxyhemoglobin ABG Sodium ABG Potassium ABG Chloride ABG Glucose Oxyhemoglobin Sodium 136 L Potassium 6.2 H* Chloride Carbon Dioxide 21 L BUN 92 H Creatinine 10.8 H Glucose 171 H POC Glucose 288 H Lactic Acid Calcium Phosphorus Magnesium Total Bilirubin 2.10 H AST 223 H ALT 100 H Alkaline Phosphatase 206 H Total Protein 4.8 L Albumin 1.9 L Triglycerides Arterial Blood Glucose Arterial Blood Ionized Calcium Digoxin Crossmatch 01/02/21 01/02/21 01/02/21 00:12 00:45 03:05 WBC RBC Hgb Hct MCV MCHC RDW Plt Count Lymph % (Auto) [place] % (Auto) Eos % (Auto) Lymph # (Auto) [place] # (Auto) Eos # (Auto) Seg Neutrophils % Seg Neuts % (Manual) Lymphocytes % (Manual) Monocytes % (Manual) Seg Neutrophils # Seg Neutrophils # Man Lymphocytes # (Manual) Monocytes # (Manual) PT INR ABG pH POC ABG pCO2 POC ABG pO2 81.8 L ABG pO2 ABG HCO3 ABG O2 Saturation ABG Base Excess ABG Hemoglobin 8.0 L ABG Oxyhemoglobin ABG Sodium 129.8 L ABG Potassium 5.4 H ABG Chloride ABG Glucose 257 H Oxyhemoglobin Sodium 136 L Potassium 5.8 H Chloride 96.6 L Carbon Dioxide BUN 95 H Creatinine 11.2 H Glucose 238 H POC Glucose 223 H Lactic Acid Calcium Phosphorus Magnesium Total Bilirubin AST ALT Alkaline Phosphatase Total Protein Albumin Triglycerides Arterial Blood Glucose 257 H Arterial Blood Ionized Calcium 4.0 L Digoxin Crossmatch 01/02/21 01/02/21 01/02/21 06:25 08:00 08:00 WBC 17.5 H RBC 2.31 L Hgb 6.7 L Hct 22.1 L D MCV 96 H MCHC 30 L RDW 18.4 H Plt Count Lymph % (Auto) [place] % (Auto) Eos % (Auto) Lymph # (Auto) [place] # (Auto) Eos # (Auto) Seg Neutrophils % Seg Neuts % (Manual) Lymphocytes % (Manual) Monocytes % (Manual) Seg Neutrophils # Seg Neutrophils # Man Lymphocytes # (Manual) Monocytes # (Manual) PT INR ABG pH POC ABG pCO2 POC ABG pO2 ABG pO2 ABG HCO3 ABG O2 Saturation ABG Base Excess ABG Hemoglobin ABG Oxyhemoglobin ABG Sodium ABG Potassium ABG Chloride ABG Glucose Oxyhemoglobin Sodium 134 L Potassium 5.3 H Chloride 92.9 L Carbon Dioxide BUN 101 H Creatinine 10.9 H Glucose 560 H* POC Glucose 239 H Lactic Acid Calcium 7.6 L Phosphorus 6.50 H Magnesium Total Bilirubin AST ALT Alkaline Phosphatase Total Protein Albumin Triglycerides Arterial Blood Glucose Arterial Blood Ionized Calcium Digoxin Crossmatch 01/02/21 01/02/21 01/02/21 11:26 15:00 17:57 WBC RBC Hgb Hct MCV MCHC RDW Plt Count Lymph % (Auto) [place] % (Auto) Eos % (Auto) Lymph # (Auto) [place] # (Auto) Eos # (Auto) Seg Neutrophils % Seg Neuts % (Manual) Lymphocytes % (Manual) Monocytes % (Manual) Seg Neutrophils # Seg Neutrophils # Man Lymphocytes # (Manual) Monocytes # (Manual) PT INR ABG pH POC ABG pCO2 POC ABG pO2 ABG pO2 ABG HCO3 ABG O2 Saturation ABG Base Excess ABG Hemoglobin ABG Oxyhemoglobin ABG Sodium ABG Potassium ABG Chloride ABG Glucose Oxyhemoglobin Sodium Potassium Chloride Carbon Dioxide BUN Creatinine Glucose 241 H POC Glucose 205 H 272 H Lactic Acid Calcium Phosphorus Magnesium Total Bilirubin AST ALT Alkaline Phosphatase Total Protein Albumin Triglycerides Arterial Blood Glucose Arterial Blood Ionized Calcium Digoxin Crossmatch 01/02/21 01/02/21 01/03/21 23:25 23:43 03:45 WBC RBC Hgb Hct MCV MCHC RDW Plt Count Lymph % (Auto) [place] % (Auto) Eos % (Auto) Lymph # (Auto) [place] # (Auto) Eos # (Auto) Seg Neutrophils % Seg Neuts % (Manual) Lymphocytes % (Manual) Monocytes % (Manual) Seg Neutrophils # Seg Neutrophils # Man Lymphocytes # (Manual) Monocytes # (Manual) PT INR ABG pH POC ABG pCO2 48.3 H POC ABG pO2 134.4 H 79.7 L ABG pO2 ABG HCO3 ABG O2 Saturation ABG Base Excess ABG Hemoglobin 7.7 L 8.6 L ABG Oxyhemoglobin ABG Sodium 131.8 L 130.4 L ABG Potassium ABG Chloride 97.0 L ABG Glucose 218 H 238 H Oxyhemoglobin Sodium Potassium Chloride Carbon Dioxide BUN Creatinine Glucose POC Glucose 218 H Lactic Acid Calcium Phosphorus Magnesium Total Bilirubin AST ALT Alkaline Phosphatase Total Protein Albumin Triglycerides Arterial Blood Glucose 218 H 238 H Arterial Blood Ionized Calcium 4.1 L 4.0 L Digoxin Crossmatch 01/03/21 01/03/21 01/03/21 04:37 04:37 05:39 WBC 15.2 H RBC 2.38 L Hgb 7.3 L Hct 21.6 L MCV MCHC RDW 16.6 H Plt Count Lymph % (Auto) [place] % (Auto) Eos % (Auto) Lymph # (Auto) [place] # (Auto) Eos # (Auto) Seg Neutrophils % Seg Neuts % (Manual) Lymphocytes % (Manual) Monocytes % (Manual) Seg Neutrophils # Seg Neutrophils # Man Lymphocytes # (Manual) Monocytes # (Manual) PT INR ABG pH POC ABG pCO2 POC ABG pO2 ABG pO2 ABG HCO3 ABG O2 Saturation ABG Base Excess ABG Hemoglobin ABG Oxyhemoglobin ABG Sodium ABG Potassium ABG Chloride ABG Glucose Oxyhemoglobin Sodium 136 L Potassium Chloride 94.5 L Carbon Dioxide BUN 69 H Creatinine 8.0 H Glucose 219 H POC Glucose 222 H Lactic Acid Calcium 7.8 L Phosphorus 4.80 H D Magnesium Total Bilirubin AST ALT Alkaline Phosphatase Total Protein Albumin Triglycerides Arterial Blood Glucose Arterial Blood Ionized Calcium Digoxin Crossmatch 01/03/21 01/03/21 01/03/21 11:29 18:49 23:37 WBC RBC Hgb Hct MCV MCHC RDW Plt Count Lymph % (Auto) [place] % (Auto) Eos % (Auto) Lymph # (Auto) [place] # (Auto) Eos # (Auto) Seg Neutrophils % Seg Neuts % (Manual) Lymphocytes % (Manual) Monocytes % (Manual) Seg Neutrophils # Seg Neutrophils # Man Lymphocytes # (Manual) Monocytes # (Manual) PT INR ABG pH POC ABG pCO2 POC ABG pO2 ABG pO2 ABG HCO3 ABG O2 Saturation ABG Base Excess ABG Hemoglobin ABG Oxyhemoglobin ABG Sodium ABG Potassium ABG Chloride ABG Glucose Oxyhemoglobin Sodium Potassium Chloride Carbon Dioxide BUN Creatinine Glucose POC Glucose 232 H 129 H 140 H Lactic Acid Calcium Phosphorus Magnesium Total Bilirubin AST ALT Alkaline Phosphatase Total Protein Albumin Triglycerides Arterial Blood Glucose Arterial Blood Ionized Calcium Digoxin Crossmatch 01/04/21 01/04/21 01/04/21 03:22 04:38 04:38 WBC 11.1 H RBC 2.89 L Hgb 8.9 L Hct 26.2 L MCV MCHC RDW 16.1 H Plt Count Lymph % (Auto) [place] % (Auto) Eos % (Auto) Lymph # (Auto) [place] # (Auto) Eos # (Auto) Seg Neutrophils % Seg Neuts % (Manual) Lymphocytes % (Manual) Monocytes % (Manual) Seg Neutrophils # Seg Neutrophils # Man Lymphocytes # (Manual) Monocytes # (Manual) PT INR ABG pH POC ABG pCO2 POC ABG pO2 82.3 L ABG pO2 ABG HCO3 ABG O2 Saturation ABG Base Excess ABG Hemoglobin 8.9 L ABG Oxyhemoglobin ABG Sodium 130.5 L ABG Potassium ABG Chloride ABG Glucose 124 H Oxyhemoglobin Sodium Potassium Chloride 95.5 L Carbon Dioxide BUN 87 H Creatinine 9.7 H Glucose 118 H POC Glucose Lactic Acid Calcium 7.7 L Phosphorus Magnesium Total Bilirubin AST ALT Alkaline Phosphatase Total Protein Albumin Triglycerides Arterial Blood Glucose 124 H Arterial Blood Ionized Calcium 3.5 L Digoxin Crossmatch 01/04/21 01/04/21 01/04/21 05:39 12:04 18:04 WBC RBC Hgb Hct MCV MCHC RDW Plt Count Lymph % (Auto) [place] % (Auto) Eos % (Auto) Lymph # (Auto) [place] # (Auto) Eos # (Auto) Seg Neutrophils % Seg Neuts % (Manual) Lymphocytes % (Manual) Monocytes % (Manual) Seg Neutrophils # Seg Neutrophils # Man Lymphocytes # (Manual) Monocytes # (Manual) PT INR ABG pH POC ABG pCO2 POC ABG pO2 ABG pO2 ABG HCO3 ABG O2 Saturation ABG Base Excess ABG Hemoglobin ABG Oxyhemoglobin ABG Sodium ABG Potassium ABG Chloride ABG Glucose Oxyhemoglobin Sodium Potassium Chloride Carbon Dioxide BUN Creatinine Glucose POC Glucose 134 H 125 H 131 H Lactic Acid Calcium Phosphorus Magnesium Total Bilirubin AST ALT Alkaline Phosphatase Total Protein Albumin Triglycerides Arterial Blood Glucose Arterial Blood Ionized Calcium Digoxin Crossmatch 01/04/21 01/05/21 01/05/21 23:41 03:23 04:49 WBC RBC Hgb Hct MCV MCHC RDW Plt Count Lymph % (Auto) [place] % (Auto) Eos % (Auto) Lymph # (Auto) [place] # (Auto) Eos # (Auto) Seg Neutrophils % Seg Neuts % (Manual) Lymphocytes % (Manual) Monocytes % (Manual) Seg Neutrophils # Seg Neutrophils # Man Lymphocytes # (Manual) Monocytes # (Manual) PT INR ABG pH POC ABG pCO2 POC ABG pO2 62.8 L ABG pO2 ABG HCO3 ABG O2 Saturation ABG Base Excess ABG Hemoglobin 9.5 L ABG Oxyhemoglobin 92.0 L ABG Sodium 130.1 L ABG Potassium ABG Chloride ABG Glucose 148 H Oxyhemoglobin Sodium Potassium Chloride 96.9 L Carbon Dioxide BUN 57 H Creatinine 6.7 H Glucose 135 H POC Glucose 132 H Lactic Acid Calcium 8.0 L Phosphorus Magnesium Total Bilirubin AST ALT Alkaline Phosphatase Total Protein Albumin Triglycerides Arterial Blood Glucose 148 H Arterial Blood Ionized Calcium 4.1 L Digoxin Crossmatch 01/05/21 01/05/21 01/05/21 05:04 11:48 12:39 WBC RBC 3.03 L Hgb 9.3 L Hct 27.6 L MCV MCHC RDW 16.5 H Plt Count Lymph % (Auto) [place] % (Auto) Eos % (Auto) Lymph # (Auto) [place] # (Auto) Eos # (Auto) Seg Neutrophils % Seg Neuts % (Manual) Lymphocytes % (Manual) Monocytes % (Manual) Seg Neutrophils # Seg Neutrophils # Man Lymphocytes # (Manual) Monocytes # (Manual) PT INR ABG pH POC ABG pCO2 POC ABG pO2 ABG pO2 ABG HCO3 ABG O2 Saturation ABG Base Excess ABG Hemoglobin ABG Oxyhemoglobin ABG Sodium ABG Potassium ABG Chloride ABG Glucose Oxyhemoglobin Sodium Potassium Chloride Carbon Dioxide BUN Creatinine Glucose POC Glucose 147 H 162 H Lactic Acid Calcium Phosphorus Magnesium Total Bilirubin AST ALT Alkaline Phosphatase Total Protein Albumin Triglycerides Arterial Blood Glucose Arterial Blood Ionized Calcium Digoxin Crossmatch 01/05/21 01/05/21 01/06/21 17:50 23:32 04:15 WBC RBC Hgb Hct MCV MCHC RDW Plt Count Lymph % (Auto) [place] % (Auto) Eos % (Auto) Lymph # (Auto) [place] # (Auto) Eos # (Auto) Seg Neutrophils % Seg Neuts % (Manual) Lymphocytes % (Manual) Monocytes % (Manual) Seg Neutrophils # Seg Neutrophils # Man Lymphocytes # (Manual) Monocytes # (Manual) PT INR ABG pH POC ABG pCO2 POC ABG pO2 ABG pO2 191.0 H ABG HCO3 ABG O2 Saturation 99.2 H ABG Base Excess ABG Hemoglobin 9.0 L ABG Oxyhemoglobin ABG Sodium ABG Potassium ABG Chloride ABG Glucose Oxyhemoglobin Sodium Potassium Chloride Carbon Dioxide BUN Creatinine Glucose POC Glucose 155 H 115 H Lactic Acid Calcium Phosphorus Magnesium Total Bilirubin AST ALT Alkaline Phosphatase Total Protein Albumin Triglycerides Arterial Blood Glucose Arterial Blood Ionized Calcium Digoxin Crossmatch 01/06/21 01/06/21 01/06/21 04:45 05:56 07:03 WBC RBC 2.95 L Hgb 9.1 L Hct 26.8 L MCV MCHC RDW 16.8 H Plt Count Lymph % (Auto) [place] % (Auto) Eos % (Auto) Lymph # (Auto) [place] # (Auto) Eos # (Auto) Seg Neutrophils % Seg Neuts % (Manual) Lymphocytes % (Manual) Monocytes % (Manual) Seg Neutrophils # Seg Neutrophils # Man Lymphocytes # (Manual) Monocytes # (Manual) PT INR ABG pH POC ABG pCO2 POC ABG pO2 ABG pO2 ABG HCO3 ABG O2 Saturation ABG Base Excess ABG Hemoglobin ABG Oxyhemoglobin ABG Sodium ABG Potassium ABG Chloride ABG Glucose Oxyhemoglobin Sodium 135 L Potassium Chloride 95.9 L Carbon Dioxide BUN 82 H Creatinine 8.7 H Glucose 127 H POC Glucose 136 H Lactic Acid Calcium 8.3 L Phosphorus Magnesium Total Bilirubin AST ALT Alkaline Phosphatase Total Protein Albumin Triglycerides Arterial Blood Glucose Arterial Blood Ionized Calcium Digoxin Crossmatch 01/06/21 01/06/21 01/06/21 07:10 11:04 13:38 WBC RBC Hgb Hct MCV MCHC RDW Plt Count Lymph % (Auto) [place] % (Auto) Eos % (Auto) Lymph # (Auto) [place] # (Auto) Eos # (Auto) Seg Neutrophils % Seg Neuts % (Manual) Lymphocytes % (Manual) Monocytes % (Manual) Seg Neutrophils # Seg Neutrophils # Man Lymphocytes # (Manual) Monocytes # (Manual) PT INR ABG pH POC ABG pCO2 POC ABG pO2 ABG pO2 ABG HCO3 ABG O2 Saturation ABG Base Excess ABG Hemoglobin ABG Oxyhemoglobin ABG Sodium ABG Potassium ABG Chloride ABG Glucose Oxyhemoglobin Sodium Potassium Chloride Carbon Dioxide BUN Creatinine Glucose POC Glucose 178 H 155 H Lactic Acid Calcium Phosphorus Magnesium Total Bilirubin AST ALT Alkaline Phosphatase Total Protein Albumin Triglycerides Arterial Blood Glucose Arterial Blood Ionized Calcium Digoxin Crossmatch See Detail 01/06/21 01/06/21 01/07/21 17:35 22:21 03:07 WBC RBC Hgb Hct MCV MCHC RDW Plt Count Lymph % (Auto) [place] % (Auto) Eos % (Auto) Lymph # (Auto) [place] # (Auto) Eos # (Auto) Seg Neutrophils % Seg Neuts % (Manual) Lymphocytes % (Manual) Monocytes % (Manual) Seg Neutrophils # Seg Neutrophils # Man Lymphocytes # (Manual) Monocytes # (Manual) PT INR ABG pH POC ABG pCO2 POC ABG pO2 ABG pO2 ABG HCO3 ABG O2 Saturation ABG Base Excess ABG Hemoglobin 11.9 L ABG Oxyhemoglobin ABG Sodium 135.6 L ABG Potassium ABG Chloride ABG Glucose 181 H Oxyhemoglobin Sodium Potassium Chloride Carbon Dioxide BUN Creatinine Glucose POC Glucose 138 H 202 H Lactic Acid Calcium Phosphorus Magnesium Total Bilirubin AST ALT Alkaline Phosphatase Total Protein Albumin Triglycerides Arterial Blood Glucose 181 H Arterial Blood Ionized Calcium 4.3 L Digoxin Crossmatch 01/07/21 01/07/21 01/07/21 04:50 05:21 08:37 WBC 12.4 H RBC Hgb 11.1 L Hct 33.3 L D MCV MCHC RDW 17.0 H Plt Count Lymph % (Auto) 3.2 L [place] % (Auto) 9.4 H Eos % (Auto) Lymph # (Auto) 0.4 L [place] # (Auto) 1.2 H Eos # (Auto) Seg Neutrophils % 86.6 H Seg Neuts % (Manual) Lymphocytes % (Manual) Monocytes % (Manual) Seg Neutrophils # 10.7 H Seg Neutrophils # Man Lymphocytes # (Manual) Monocytes # (Manual) PT INR ABG pH POC ABG pCO2 POC ABG pO2 ABG pO2 ABG HCO3 ABG O2 Saturation ABG Base Excess ABG Hemoglobin ABG Oxyhemoglobin ABG Sodium ABG Potassium ABG Chloride ABG Glucose Oxyhemoglobin Sodium Potassium Chloride Carbon Dioxide BUN 60 H Creatinine 6.3 H Glucose 154 H POC Glucose 177 H Lactic Acid Calcium 8.3 L Phosphorus Magnesium Total Bilirubin AST ALT Alkaline Phosphatase Total Protein Albumin Triglycerides Arterial Blood Glucose Arterial Blood Ionized Calcium Digoxin Crossmatch 01/07/21 01/07/21 01/07/21 11:21 12:19 17:11 WBC RBC Hgb Hct MCV MCHC RDW Plt Count Lymph % (Auto) [place] % (Auto) Eos % (Auto) Lymph # (Auto) [place] # (Auto) Eos # (Auto) Seg Neutrophils % Seg Neuts % (Manual) Lymphocytes % (Manual) Monocytes % (Manual) Seg Neutrophils # Seg Neutrophils # Man Lymphocytes # (Manual) Monocytes # (Manual) PT INR ABG pH POC ABG pCO2 POC ABG pO2 ABG pO2 ABG HCO3 ABG O2 Saturation ABG Base Excess ABG Hemoglobin ABG Oxyhemoglobin ABG Sodium ABG Potassium ABG Chloride ABG Glucose Oxyhemoglobin Sodium Potassium Chloride Carbon Dioxide BUN Creatinine Glucose POC Glucose 144 H 137 H 119 H Lactic Acid Calcium Phosphorus Magnesium Total Bilirubin AST ALT Alkaline Phosphatase Total Protein Albumin Triglycerides Arterial Blood Glucose Arterial Blood Ionized Calcium Digoxin Crossmatch 01/07/21 01/07/21 01/08/21 17:14 23:39 04:34 WBC RBC Hgb Hct MCV MCHC RDW Plt Count Lymph % (Auto) [place] % (Auto) Eos % (Auto) Lymph # (Auto) [place] # (Auto) Eos # (Auto) Seg Neutrophils % Seg Neuts % (Manual) Lymphocytes % (Manual) Monocytes % (Manual) Seg Neutrophils # Seg Neutrophils # Man Lymphocytes # (Manual) Monocytes # (Manual) PT INR ABG pH 7.345 L POC ABG pCO2 POC ABG pO2 ABG pO2 67.4 L ABG HCO3 ABG O2 Saturation 94.3 L ABG Base Excess -3.9 L ABG Hemoglobin 8.9 L ABG Oxyhemoglobin ABG Sodium ABG Potassium ABG Chloride ABG Glucose Oxyhemoglobin 92.3 L Sodium Potassium Chloride Carbon Dioxide 20 L BUN 93 H Creatinine 8.8 H Glucose 120 H POC Glucose 129 H Lactic Acid Calcium Phosphorus Magnesium Total Bilirubin AST ALT Alkaline Phosphatase 133 H Total Protein 5.4 L Albumin 1.9 L Triglycerides Arterial Blood Glucose Arterial Blood Ionized Calcium Digoxin Crossmatch 01/08/21 01/08/21 01/08/21 05:26 11:38 17:19 WBC RBC Hgb Hct MCV MCHC RDW Plt Count Lymph % (Auto) [place] % (Auto) Eos % (Auto) Lymph # (Auto) [place] # (Auto) Eos # (Auto) Seg Neutrophils % Seg Neuts % (Manual) Lymphocytes % (Manual) Monocytes % (Manual) Seg Neutrophils # Seg Neutrophils # Man Lymphocytes # (Manual) Monocytes # (Manual) PT INR ABG pH POC ABG pCO2 POC ABG pO2 ABG pO2 ABG HCO3 ABG O2 Saturation ABG Base Excess ABG Hemoglobin ABG Oxyhemoglobin ABG Sodium ABG Potassium ABG Chloride ABG Glucose Oxyhemoglobin Sodium Potassium Chloride Carbon Dioxide BUN Creatinine Glucose POC Glucose 125 H 146 H 136 H Lactic Acid Calcium Phosphorus Magnesium Total Bilirubin AST ALT Alkaline Phosphatase Total Protein Albumin Triglycerides Arterial Blood Glucose Arterial Blood Ionized Calcium Digoxin Crossmatch 01/08/21 01/09/21 01/09/21 23:52 05:13 05:21 WBC RBC Hgb Hct MCV MCHC RDW Plt Count Lymph % (Auto) [place] % (Auto) Eos % (Auto) Lymph # (Auto) [place] # (Auto) Eos # (Auto) Seg Neutrophils % Seg Neuts % (Manual) Lymphocytes % (Manual) Monocytes % (Manual) Seg Neutrophils # Seg Neutrophils # Man Lymphocytes # (Manual) Monocytes # (Manual) PT INR ABG pH POC ABG pCO2 POC ABG pO2 ABG pO2 ABG HCO3 ABG O2 Saturation ABG Base Excess ABG Hemoglobin ABG Oxyhemoglobin ABG Sodium ABG Potassium ABG Chloride ABG Glucose Oxyhemoglobin Sodium Potassium Chloride Carbon Dioxide 16 L BUN 123 H Creatinine 10.8 H Glucose 145 H POC Glucose 143 H 144 H Lactic Acid Calcium Phosphorus 5.00 H D Magnesium 2.40 H Total Bilirubin AST ALT Alkaline Phosphatase Total Protein Albumin Triglycerides Arterial Blood Glucose Arterial Blood Ionized Calcium Digoxin Crossmatch 01/09/21 01/09/21 01/09/21 12:08 17:20 23:56 WBC RBC Hgb Hct MCV MCHC RDW Plt Count Lymph % (Auto) [place] % (Auto) Eos % (Auto) Lymph # (Auto) [place] # (Auto) Eos # (Auto) Seg Neutrophils % Seg Neuts % (Manual) Lymphocytes % (Manual) Monocytes % (Manual) Seg Neutrophils # Seg Neutrophils # Man Lymphocytes # (Manual) Monocytes # (Manual) PT INR ABG pH POC ABG pCO2 POC ABG pO2 ABG pO2 ABG HCO3 ABG O2 Saturation ABG Base Excess ABG Hemoglobin ABG Oxyhemoglobin ABG Sodium ABG Potassium ABG Chloride ABG Glucose Oxyhemoglobin Sodium Potassium Chloride Carbon Dioxide BUN Creatinine Glucose POC Glucose 153 H 160 H 158 H Lactic Acid Calcium Phosphorus Magnesium Total Bilirubin AST ALT Alkaline Phosphatase Total Protein Albumin Triglycerides Arterial Blood Glucose Arterial Blood Ionized Calcium Digoxin Crossmatch 01/10/21 01/10/21 01/10/21 04:52 05:44 07:41 WBC RBC Hgb Hct MCV MCHC RDW Plt Count Lymph % (Auto) [place] % (Auto) Eos % (Auto) Lymph # (Auto) [place] # (Auto) Eos # (Auto) Seg Neutrophils % Seg Neuts % (Manual) Lymphocytes % (Manual) Monocytes % (Manual) Seg Neutrophils # Seg Neutrophils # Man Lymphocytes # (Manual) Monocytes # (Manual) PT INR ABG pH POC ABG pCO2 POC ABG pO2 ABG pO2 ABG HCO3 ABG O2 Saturation ABG Base Excess ABG Hemoglobin ABG Oxyhemoglobin ABG Sodium ABG Potassium ABG Chloride ABG Glucose Oxyhemoglobin Sodium 135 L Potassium 3.5 L D Chloride 95.0 L Carbon Dioxide 21 L BUN 93 H Creatinine 8.3 H Glucose 127 H POC Glucose 135 H 157 H Lactic Acid Calcium Phosphorus Magnesium Total Bilirubin AST ALT Alkaline Phosphatase Total Protein Albumin Triglycerides Arterial Blood Glucose Arterial Blood Ionized Calcium Digoxin Crossmatch 01/10/21 01/10/21 01/10/21 09:26 12:03 17:44 WBC 18.2 H RBC 3.14 L Hgb 9.7 L Hct 28.2 L MCV MCHC RDW 16.5 H Plt Count Lymph % (Auto) [place] % (Auto) Eos % (Auto) Lymph # (Auto) [place] # (Auto) Eos # (Auto) Seg Neutrophils % Seg Neuts % (Manual) 95.0 H Lymphocytes % (Manual) 3.0 L Monocytes % (Manual) Seg Neutrophils # Seg Neutrophils # Man 17.3 H Lymphocytes # (Manual) 0.5 L Monocytes # (Manual) PT INR ABG pH POC ABG pCO2 POC ABG pO2 ABG pO2 ABG HCO3 ABG O2 Saturation ABG Base Excess ABG Hemoglobin ABG Oxyhemoglobin ABG Sodium ABG Potassium ABG Chloride ABG Glucose Oxyhemoglobin Sodium Potassium Chloride Carbon Dioxide BUN Creatinine Glucose POC Glucose 163 H 171 H Lactic Acid Calcium Phosphorus Magnesium Total Bilirubin AST ALT Alkaline Phosphatase Total Protein Albumin Triglycerides Arterial Blood Glucose Arterial Blood Ionized Calcium Digoxin Crossmatch 01/10/21 01/11/21 01/11/21 23:50 05:18 05:18 WBC RBC Hgb Hct MCV MCHC RDW Plt Count Lymph % (Auto) [place] % (Auto) Eos % (Auto) Lymph # (Auto) [place] # (Auto) Eos # (Auto) Seg Neutrophils % Seg Neuts % (Manual) Lymphocytes % (Manual) Monocytes % (Manual) Seg Neutrophils # Seg Neutrophils # Man Lymphocytes # (Manual) Monocytes # (Manual) PT INR ABG pH POC ABG pCO2 POC ABG pO2 ABG pO2 ABG HCO3 ABG O2 Saturation ABG Base Excess ABG Hemoglobin ABG Oxyhemoglobin ABG Sodium ABG Potassium ABG Chloride ABG Glucose Oxyhemoglobin Sodium 136 L Potassium Chloride 94.6 L Carbon Dioxide 19 L BUN 145 H Creatinine 10.6 H Glucose 152 H POC Glucose 151 H Lactic Acid Calcium Phosphorus 6.00 H D Magnesium Total Bilirubin AST ALT Alkaline Phosphatase Total Protein Albumin Triglycerides Arterial Blood Glucose Arterial Blood Ionized Calcium Digoxin 0.8 L Crossmatch 01/11/21 01/11/21 01/11/21 05:18 05:19 11:28 WBC 17.4 H RBC 3.34 L Hgb 10.2 L Hct 29.7 L MCV MCHC RDW 15.9 H Plt Count Lymph % (Auto) [place] % (Auto) Eos % (Auto) Lymph # (Auto) [place] # (Auto) Eos # (Auto) Seg Neutrophils % Seg Neuts % (Manual) Lymphocytes % (Manual) Monocytes % (Manual) Seg Neutrophils # Seg Neutrophils # Man Lymphocytes # (Manual) Monocytes # (Manual) PT INR ABG pH POC ABG pCO2 POC ABG pO2 ABG pO2 ABG HCO3 ABG O2 Saturation ABG Base Excess ABG Hemoglobin ABG Oxyhemoglobin ABG Sodium ABG Potassium ABG Chloride ABG Glucose Oxyhemoglobin Sodium Potassium Chloride Carbon Dioxide BUN Creatinine Glucose POC Glucose 149 H 178 H Lactic Acid Calcium Phosphorus Magnesium Total Bilirubin AST ALT Alkaline Phosphatase Total Protein Albumin Triglycerides Arterial Blood Glucose Arterial Blood Ionized Calcium Digoxin Crossmatch 01/11/21 01/11/21 01/12/21 17:31 23:14 05:18 WBC RBC Hgb Hct MCV MCHC RDW Plt Count Lymph % (Auto) [place] % (Auto) Eos % (Auto) Lymph # (Auto) [place] # (Auto) Eos # (Auto) Seg Neutrophils % Seg Neuts % (Manual) Lymphocytes % (Manual) Monocytes % (Manual) Seg Neutrophils # Seg Neutrophils # Man Lymphocytes # (Manual) Monocytes # (Manual) PT INR ABG pH POC ABG pCO2 POC ABG pO2 ABG pO2 ABG HCO3 ABG O2 Saturation ABG Base Excess ABG Hemoglobin ABG Oxyhemoglobin ABG Sodium ABG Potassium ABG Chloride ABG Glucose Oxyhemoglobin Sodium Potassium Chloride Carbon Dioxide BUN Creatinine Glucose POC Glucose 158 H 145 H 148 H Lactic Acid Calcium Phosphorus Magnesium Total Bilirubin AST ALT Alkaline Phosphatase Total Protein Albumin Triglycerides Arterial Blood Glucose Arterial Blood Ionized Calcium Digoxin Crossmatch 01/12/21 01/12/21 01/12/21 06:50 10:45 13:34 WBC RBC Hgb Hct MCV MCHC RDW Plt Count Lymph % (Auto) [place] % (Auto) Eos % (Auto) Lymph # (Auto) [place] # (Auto) Eos # (Auto) Seg Neutrophils % Seg Neuts % (Manual) Lymphocytes % (Manual) Monocytes % (Manual) Seg Neutrophils # Seg Neutrophils # Man Lymphocytes # (Manual) Monocytes # (Manual) PT INR ABG pH POC ABG pCO2 POC ABG pO2 ABG pO2 ABG HCO3 ABG O2 Saturation ABG Base Excess ABG Hemoglobin ABG Oxyhemoglobin ABG Sodium ABG Potassium ABG Chloride ABG Glucose Oxyhemoglobin Sodium Potassium 2.9 L* D Chloride 94.8 L Carbon Dioxide BUN 102 H Creatinine 8.3 H Glucose 139 H POC Glucose 151 H 134 H Lactic Acid Calcium 8.1 L Phosphorus 5.00 H Magnesium Total Bilirubin AST ALT Alkaline Phosphatase Total Protein Albumin Triglycerides Arterial Blood Glucose Arterial Blood Ionized Calcium Digoxin Crossmatch 01/12/21 01/12/21 01/13/21 16:59 23:06 03:45 WBC RBC Hgb Hct MCV MCHC RDW Plt Count Lymph % (Auto) [place] % (Auto) Eos % (Auto) Lymph # (Auto) [place] # (Auto) Eos # (Auto) Seg Neutrophils % Seg Neuts % (Manual) Lymphocytes % (Manual) Monocytes % (Manual) Seg Neutrophils # Seg Neutrophils # Man Lymphocytes # (Manual) Monocytes # (Manual) PT INR ABG pH POC ABG pCO2 POC ABG pO2 ABG pO2 ABG HCO3 ABG O2 Saturation ABG Base Excess ABG Hemoglobin ABG Oxyhemoglobin ABG Sodium ABG Potassium ABG Chloride ABG Glucose Oxyhemoglobin Sodium 136 L Potassium 3.4 L Chloride 92.6 L Carbon Dioxide BUN 134 H Creatinine 10.4 H Glucose 126 H POC Glucose 108 H 135 H Lactic Acid Calcium 8.3 L Phosphorus 5.60 H Magnesium 1.50 L Total Bilirubin AST ALT Alkaline Phosphatase Total Protein Albumin Triglycerides Arterial Blood Glucose Arterial Blood Ionized Calcium Digoxin Crossmatch 01/13/21 01/13/21 01/13/21 03:45 05:55 11:59 WBC 17.6 H RBC 3.33 L Hgb 10.2 L Hct 29.5 L MCV MCHC 35 H RDW 15.5 H Plt Count Lymph % (Auto) 4.4 L [place] % (Auto) 10.3 H Eos % (Auto) Lymph # (Auto) 0.8 L [place] # (Auto) 1.8 H Eos # (Auto) Seg Neutrophils % 84.2 H Seg Neuts % (Manual) Lymphocytes % (Manual) Monocytes % (Manual) Seg Neutrophils # 14.8 H Seg Neutrophils # Man Lymphocytes # (Manual) Monocytes # (Manual) PT INR ABG pH POC ABG pCO2 POC ABG pO2 ABG pO2 ABG HCO3 ABG O2 Saturation ABG Base Excess ABG Hemoglobin ABG Oxyhemoglobin ABG Sodium ABG Potassium ABG Chloride ABG Glucose Oxyhemoglobin Sodium Potassium Chloride Carbon Dioxide BUN Creatinine Glucose POC Glucose 134 H 141 H Lactic Acid Calcium Phosphorus Magnesium Total Bilirubin AST ALT Alkaline Phosphatase Total Protein Albumin Triglycerides Arterial Blood Glucose Arterial Blood Ionized Calcium Digoxin Crossmatch 01/13/21 01/14/21 01/14/21 23:09 05:39 05:57 WBC RBC Hgb Hct MCV MCHC RDW Plt Count Lymph % (Auto) [place] % (Auto) Eos % (Auto) Lymph # (Auto) [place] # (Auto) Eos # (Auto) Seg Neutrophils % Seg Neuts % (Manual) Lymphocytes % (Manual) Monocytes % (Manual) Seg Neutrophils # Seg Neutrophils # Man Lymphocytes # (Manual) Monocytes # (Manual) PT INR ABG pH POC ABG pCO2 POC ABG pO2 ABG pO2 ABG HCO3 ABG O2 Saturation ABG Base Excess ABG Hemoglobin ABG Oxyhemoglobin ABG Sodium ABG Potassium ABG Chloride ABG Glucose Oxyhemoglobin Sodium Potassium Chloride 97.6 L Carbon Dioxide BUN 81 H Creatinine 7.6 H Glucose 193 H POC Glucose 106 H 190 H Lactic Acid Calcium 8.2 L Phosphorus 4.60 H Magnesium Total Bilirubin AST ALT Alkaline Phosphatase Total Protein Albumin Triglycerides Arterial Blood Glucose Arterial Blood Ionized Calcium Digoxin Crossmatch 01/14/21 01/14/21 01/14/21 10:00 16:56 16:59 WBC 17.0 H RBC 3.10 L Hgb 9.6 L Hct 27.4 L MCV MCHC 35 H RDW 15.6 H Plt Count Lymph % (Auto) [place] % (Auto) Eos % (Auto) Lymph # (Auto) [place] # (Auto) Eos # (Auto) Seg Neutrophils % Seg Neuts % (Manual) Lymphocytes % (Manual) Monocytes % (Manual) Seg Neutrophils # Seg Neutrophils # Man Lymphocytes # (Manual) Monocytes # (Manual) PT INR ABG pH POC ABG pCO2 POC ABG pO2 ABG pO2 ABG HCO3 ABG O2 Saturation ABG Base Excess ABG Hemoglobin ABG Oxyhemoglobin ABG Sodium ABG Potassium ABG Chloride ABG Glucose Oxyhemoglobin Sodium Potassium Chloride Carbon Dioxide BUN Creatinine Glucose POC Glucose 37 L 34 L Lactic Acid Calcium Phosphorus Magnesium Total Bilirubin AST ALT Alkaline Phosphatase Total Protein Albumin Triglycerides Arterial Blood Glucose Arterial Blood Ionized Calcium Digoxin Crossmatch 01/14/21 01/14/21 01/14/21 17:02 18:34 23:17 WBC RBC Hgb Hct MCV MCHC RDW Plt Count Lymph % (Auto) [place] % (Auto) Eos % (Auto) Lymph # (Auto) [place] # (Auto) Eos # (Auto) Seg Neutrophils % Seg Neuts % (Manual) Lymphocytes % (Manual) Monocytes % (Manual) Seg Neutrophils # Seg Neutrophils # Man Lymphocytes # (Manual) Monocytes # (Manual) PT INR ABG pH POC ABG pCO2 POC ABG pO2 ABG pO2 ABG HCO3 ABG O2 Saturation ABG Base Excess ABG Hemoglobin ABG Oxyhemoglobin ABG Sodium ABG Potassium ABG Chloride ABG Glucose Oxyhemoglobin Sodium Potassium Chloride Carbon Dioxide BUN Creatinine Glucose POC Glucose 35 L 143 H 53 L Lactic Acid Calcium Phosphorus Magnesium Total Bilirubin AST ALT Alkaline Phosphatase Total Protein Albumin Triglycerides Arterial Blood Glucose Arterial Blood Ionized Calcium Digoxin Crossmatch 01/15/21 01/15/21 01/15/21 00:34 04:00 04:00 WBC 15.9 H RBC 3.02 L Hgb 9.3 L Hct 27.3 L MCV MCHC RDW 15.6 H Plt Count Lymph % (Auto) [place] % (Auto) Eos % (Auto) Lymph # (Auto) [place] # (Auto) Eos # (Auto) Seg Neutrophils % Seg Neuts % (Manual) Lymphocytes % (Manual) Monocytes % (Manual) Seg Neutrophils # Seg Neutrophils # Man Lymphocytes # (Manual) Monocytes # (Manual) PT INR ABG pH POC ABG pCO2 POC ABG pO2 ABG pO2 ABG HCO3 ABG O2 Saturation ABG Base Excess ABG Hemoglobin ABG Oxyhemoglobin ABG Sodium ABG Potassium ABG Chloride ABG Glucose Oxyhemoglobin Sodium 136 L Potassium Chloride 94.3 L Carbon Dioxide BUN 117 H Creatinine 9.9 H Glucose 217 H POC Glucose 181 H Lactic Acid Calcium 8.3 L Phosphorus Magnesium Total Bilirubin AST ALT Alkaline Phosphatase Total Protein Albumin Triglycerides Arterial Blood Glucose Arterial Blood Ionized Calcium Digoxin Crossmatch 01/15/21 01/15/21 01/15/21 05:29 11:51 23:13 WBC RBC Hgb Hct MCV MCHC RDW Plt Count Lymph % (Auto) [place] % (Auto) Eos % (Auto) Lymph # (Auto) [place] # (Auto) Eos # (Auto) Seg Neutrophils % Seg Neuts % (Manual) Lymphocytes % (Manual) Monocytes % (Manual) Seg Neutrophils # Seg Neutrophils # Man Lymphocytes # (Manual) Monocytes # (Manual) PT INR ABG pH POC ABG pCO2 POC ABG pO2 ABG pO2 ABG HCO3 ABG O2 Saturation ABG Base Excess ABG Hemoglobin ABG Oxyhemoglobin ABG Sodium ABG Potassium ABG Chloride ABG Glucose Oxyhemoglobin Sodium Potassium Chloride Carbon Dioxide BUN Creatinine Glucose POC Glucose 221 H 62 L 154 H Lactic Acid Calcium Phosphorus Magnesium Total Bilirubin AST ALT Alkaline Phosphatase Total Protein Albumin Triglycerides Arterial Blood Glucose Arterial Blood Ionized Calcium Digoxin Crossmatch 01/16/21 01/16/21 01/16/21 05:04 06:44 06:44 WBC 14.8 H RBC 2.76 L Hgb 8.2 L Hct 24.8 L MCV MCHC RDW 15.6 H Plt Count Lymph % (Auto) [place] % (Auto) Eos % (Auto) Lymph # (Auto) [place] # (Auto) Eos # (Auto) Seg Neutrophils % Seg Neuts % (Manual) Lymphocytes % (Manual) Monocytes % (Manual) Seg Neutrophils # Seg Neutrophils # Man Lymphocytes # (Manual) Monocytes # (Manual) PT INR ABG pH POC ABG pCO2 POC ABG pO2 ABG pO2 ABG HCO3 ABG O2 Saturation ABG Base Excess ABG Hemoglobin ABG Oxyhemoglobin ABG Sodium ABG Potassium ABG Chloride ABG Glucose Oxyhemoglobin Sodium 133 L Potassium Chloride 92.3 L Carbon Dioxide 20 L BUN 160 H Creatinine 12.1 H Glucose 177 H POC Glucose 168 H Lactic Acid Calcium 8.1 L Phosphorus 5.50 H Magnesium 2.50 H Total Bilirubin AST ALT Alkaline Phosphatase Total Protein Albumin Triglycerides Arterial Blood Glucose Arterial Blood Ionized Calcium Digoxin Crossmatch 01/16/21 01/17/21 01/17/21 23:20 05:14 05:14 WBC 12.7 H RBC 2.75 L Hgb 8.5 L Hct 24.6 L MCV MCHC 35 H RDW 15.4 H Plt Count Lymph % (Auto) [place] % (Auto) Eos % (Auto) Lymph # (Auto) [place] # (Auto) Eos # (Auto) Seg Neutrophils % Seg Neuts % (Manual) Lymphocytes % (Manual) Monocytes % (Manual) Seg Neutrophils # Seg Neutrophils # Man Lymphocytes # (Manual) Monocytes # (Manual) PT INR ABG pH POC ABG pCO2 POC ABG pO2 ABG pO2 ABG HCO3 ABG O2 Saturation ABG Base Excess ABG Hemoglobin ABG Oxyhemoglobin ABG Sodium ABG Potassium ABG Chloride ABG Glucose Oxyhemoglobin Sodium Potassium Chloride 97.9 L Carbon Dioxide BUN 84 H Creatinine 7.8 H Glucose 176 H POC Glucose 153 H Lactic Acid Calcium 8.0 L Phosphorus Magnesium Total Bilirubin AST ALT Alkaline Phosphatase Total Protein Albumin Triglycerides Arterial Blood Glucose Arterial Blood Ionized Calcium Digoxin Crossmatch 01/17/21 01/17/21 01/18/21 05:33 11:58 00:07 WBC RBC Hgb Hct MCV MCHC RDW Plt Count Lymph % (Auto) [place] % (Auto) Eos % (Auto) Lymph # (Auto) [place] # (Auto) Eos # (Auto) Seg Neutrophils % Seg Neuts % (Manual) Lymphocytes % (Manual) Monocytes % (Manual) Seg Neutrophils # Seg Neutrophils # Man Lymphocytes # (Manual) Monocytes # (Manual) PT INR ABG pH POC ABG pCO2 POC ABG pO2 ABG pO2 ABG HCO3 ABG O2 Saturation ABG Base Excess ABG Hemoglobin ABG Oxyhemoglobin ABG Sodium ABG Potassium ABG Chloride ABG Glucose Oxyhemoglobin Sodium Potassium Chloride Carbon Dioxide BUN Creatinine Glucose POC Glucose 162 H 64 L 146 H Lactic Acid Calcium Phosphorus Magnesium Total Bilirubin AST ALT Alkaline Phosphatase Total Protein Albumin Triglycerides Arterial Blood Glucose Arterial Blood Ionized Calcium Digoxin Crossmatch 01/18/21 01/18/21 01/18/21 04:19 04:19 06:15 WBC 15.6 H RBC 3.00 L Hgb 9.2 L Hct 26.8 L MCV MCHC 35 H RDW 15.6 H Plt Count Lymph % (Auto) [place] % (Auto) Eos % (Auto) Lymph # (Auto) [place] # (Auto) Eos # (Auto) Seg Neutrophils % Seg Neuts % (Manual) Lymphocytes % (Manual) Monocytes % (Manual) Seg Neutrophils # Seg Neutrophils # Man Lymphocytes # (Manual) Monocytes # (Manual) PT INR ABG pH POC ABG pCO2 POC ABG pO2 ABG pO2 ABG HCO3 ABG O2 Saturation ABG Base Excess ABG Hemoglobin ABG Oxyhemoglobin ABG Sodium ABG Potassium ABG Chloride ABG Glucose Oxyhemoglobin Sodium Potassium Chloride 96.2 L Carbon Dioxide BUN 117 H Creatinine 10.0 H Glucose 165 H POC Glucose 189 H Lactic Acid Calcium Phosphorus 4.70 H D Magnesium Total Bilirubin AST ALT Alkaline Phosphatase Total Protein Albumin Triglycerides Arterial Blood Glucose Arterial Blood Ionized Calcium Digoxin Crossmatch 01/18/21 01/18/21 01/18/21 11:53 13:44 15:08 WBC RBC Hgb Hct MCV MCHC RDW Plt Count Lymph % (Auto) [place] % (Auto) Eos % (Auto) Lymph # (Auto) [place] # (Auto) Eos # (Auto) Seg Neutrophils % Seg Neuts % (Manual) Lymphocytes % (Manual) Monocytes % (Manual) Seg Neutrophils # Seg Neutrophils # Man Lymphocytes # (Manual) Monocytes # (Manual) PT INR ABG pH POC ABG pCO2 POC ABG pO2 ABG pO2 ABG HCO3 ABG O2 Saturation ABG Base Excess ABG Hemoglobin ABG Oxyhemoglobin ABG Sodium ABG Potassium ABG Chloride ABG Glucose Oxyhemoglobin Sodium Potassium Chloride Carbon Dioxide BUN Creatinine Glucose POC Glucose 69 L 50 L 56 L Lactic Acid Calcium Phosphorus Magnesium Total Bilirubin AST ALT Alkaline Phosphatase Total Protein Albumin Triglycerides Arterial Blood Glucose Arterial Blood Ionized Calcium Digoxin Crossmatch 01/18/21 01/19/21 01/19/21 17:50 04:55 08:56 WBC 12.7 H RBC 2.89 L Hgb 8.7 L Hct 25.6 L MCV MCHC RDW 15.5 H Plt Count Lymph % (Auto) [place] % (Auto) Eos % (Auto) Lymph # (Auto) [place] # (Auto) Eos # (Auto) Seg Neutrophils % Seg Neuts % (Manual) Lymphocytes % (Manual) Monocytes % (Manual) Seg Neutrophils # Seg Neutrophils # Man Lymphocytes # (Manual) Monocytes # (Manual) PT INR ABG pH POC ABG pCO2 POC ABG pO2 ABG pO2 ABG HCO3 ABG O2 Saturation ABG Base Excess ABG Hemoglobin ABG Oxyhemoglobin ABG Sodium ABG Potassium ABG Chloride ABG Glucose Oxyhemoglobin Sodium Potassium Chloride Carbon Dioxide BUN Creatinine Glucose POC Glucose 137 H 120 H Lactic Acid Calcium Phosphorus Magnesium Total Bilirubin AST ALT Alkaline Phosphatase Total Protein Albumin Triglycerides Arterial Blood Glucose Arterial Blood Ionized Calcium Digoxin Crossmatch 01/19/21 01/19/21 01/19/21 08:56 11:33 17:32 WBC RBC Hgb Hct MCV MCHC RDW Plt Count Lymph % (Auto) [place] % (Auto) Eos % (Auto) Lymph # (Auto) [place] # (Auto) Eos # (Auto) Seg Neutrophils % Seg Neuts % (Manual) Lymphocytes % (Manual) Monocytes % (Manual) Seg Neutrophils # Seg Neutrophils # Man Lymphocytes # (Manual) Monocytes # (Manual) PT INR ABG pH POC ABG pCO2 POC ABG pO2 ABG pO2 ABG HCO3 ABG O2 Saturation ABG Base Excess ABG Hemoglobin ABG Oxyhemoglobin ABG Sodium ABG Potassium ABG Chloride ABG Glucose Oxyhemoglobin Sodium Potassium Chloride Carbon Dioxide BUN 66 H Creatinine 7.7 H Glucose 119 H POC Glucose 160 H 125 H Lactic Acid Calcium 8.3 L Phosphorus Magnesium Total Bilirubin AST ALT Alkaline Phosphatase Total Protein Albumin Triglycerides Arterial Blood Glucose Arterial Blood Ionized Calcium Digoxin Crossmatch 01/19/21 01/20/21 01/20/21 23:30 03:35 03:35 WBC 12.0 H RBC 2.62 L Hgb 8.3 L Hct 23.2 L MCV MCHC 36 H RDW Plt Count Lymph % (Auto) [place] % (Auto) Eos % (Auto) Lymph # (Auto) [place] # (Auto) Eos # (Auto) Seg Neutrophils % Seg Neuts % (Manual) Lymphocytes % (Manual) Monocytes % (Manual) Seg Neutrophils # Seg Neutrophils # Man Lymphocytes # (Manual) Monocytes # (Manual) PT INR ABG pH POC ABG pCO2 POC ABG pO2 ABG pO2 ABG HCO3 ABG O2 Saturation ABG Base Excess ABG Hemoglobin ABG Oxyhemoglobin ABG Sodium ABG Potassium ABG Chloride ABG Glucose Oxyhemoglobin Sodium Potassium Chloride Carbon Dioxide BUN 46 H Creatinine 5.9 H Glucose 128 H POC Glucose 127 H Lactic Acid Calcium Phosphorus Magnesium Total Bilirubin AST ALT Alkaline Phosphatase Total Protein Albumin Triglycerides Arterial Blood Glucose Arterial Blood Ionized Calcium Digoxin Crossmatch 01/20/21 01/20/21 01/20/21 06:19 11:55 18:00 WBC RBC Hgb Hct MCV MCHC RDW Plt Count Lymph % (Auto) [place] % (Auto) Eos % (Auto) Lymph # (Auto) [place] # (Auto) Eos # (Auto) Seg Neutrophils % Seg Neuts % (Manual) Lymphocytes % (Manual) Monocytes % (Manual) Seg Neutrophils # Seg Neutrophils # Man Lymphocytes # (Manual) Monocytes # (Manual) PT INR ABG pH POC ABG pCO2 POC ABG pO2 ABG pO2 ABG HCO3 ABG O2 Saturation ABG Base Excess ABG Hemoglobin ABG Oxyhemoglobin ABG Sodium ABG Potassium ABG Chloride ABG Glucose Oxyhemoglobin Sodium Potassium Chloride Carbon Dioxide BUN Creatinine Glucose POC Glucose 119 H 128 H 115 H Lactic Acid Calcium Phosphorus Magnesium Total Bilirubin AST ALT Alkaline Phosphatase Total Protein Albumin Triglycerides Arterial Blood Glucose Arterial Blood Ionized Calcium Digoxin Crossmatch 01/20/21 01/21/21 01/21/21 23:26 04:39 05:27 WBC RBC Hgb Hct MCV MCHC RDW Plt Count Lymph % (Auto) [place] % (Auto) Eos % (Auto) Lymph # (Auto) [place] # (Auto) Eos # (Auto) Seg Neutrophils % Seg Neuts % (Manual) Lymphocytes % (Manual) Monocytes % (Manual) Seg Neutrophils # Seg Neutrophils # Man Lymphocytes # (Manual) Monocytes # (Manual) PT INR ABG pH POC ABG pCO2 POC ABG pO2 ABG pO2 ABG HCO3 ABG O2 Saturation ABG Base Excess ABG Hemoglobin ABG Oxyhemoglobin ABG Sodium ABG Potassium ABG Chloride ABG Glucose Oxyhemoglobin Sodium Potassium Chloride Carbon Dioxide BUN 37 H Creatinine 5.3 H Glucose 109 H POC Glucose 108 H 107 H Lactic Acid Calcium Phosphorus 2.10 L Magnesium 1.50 L Total Bilirubin AST ALT Alkaline Phosphatase 143 H Total Protein 6.1 L Albumin 3.0 L Triglycerides Arterial Blood Glucose Arterial Blood Ionized Calcium Digoxin Crossmatch 01/21/21 01/21/21 01/22/21 11:35 17:53 00:20 WBC RBC Hgb Hct MCV MCHC RDW Plt Count Lymph % (Auto) [place] % (Auto) Eos % (Auto) Lymph # (Auto) [place] # (Auto) Eos # (Auto) Seg Neutrophils % Seg Neuts % (Manual) Lymphocytes % (Manual) Monocytes % (Manual) Seg Neutrophils # Seg Neutrophils # Man Lymphocytes # (Manual) Monocytes # (Manual) PT INR ABG pH POC ABG pCO2 POC ABG pO2 ABG pO2 ABG HCO3 ABG O2 Saturation ABG Base Excess ABG Hemoglobin ABG Oxyhemoglobin ABG Sodium ABG Potassium ABG Chloride ABG Glucose Oxyhemoglobin Sodium Potassium Chloride Carbon Dioxide BUN Creatinine Glucose POC Glucose 133 H 124 H 122 H Lactic Acid Calcium Phosphorus Magnesium Total Bilirubin AST ALT Alkaline Phosphatase Total Protein Albumin Triglycerides Arterial Blood Glucose Arterial Blood Ionized Calcium Digoxin Crossmatch 01/22/21 01/22/21 01/22/21 04:00 06:09 11:36 WBC RBC Hgb Hct MCV MCHC RDW Plt Count Lymph % (Auto) [place] % (Auto) Eos % (Auto) Lymph # (Auto) [place] # (Auto) Eos # (Auto) Seg Neutrophils % Seg Neuts % (Manual) Lymphocytes % (Manual) Monocytes % (Manual) Seg Neutrophils # Seg Neutrophils # Man Lymphocytes # (Manual) Monocytes # (Manual) PT INR ABG pH POC ABG pCO2 POC ABG pO2 ABG pO2 ABG HCO3 ABG O2 Saturation ABG Base Excess ABG Hemoglobin ABG Oxyhemoglobin ABG Sodium ABG Potassium ABG Chloride ABG Glucose Oxyhemoglobin Sodium Potassium Chloride Carbon Dioxide BUN 65 H Creatinine 8.2 H D Glucose 111 H POC Glucose 122 H 132 H Lactic Acid Calcium Phosphorus Magnesium Total Bilirubin AST ALT Alkaline Phosphatase Total Protein Albumin Triglycerides Arterial Blood Glucose Arterial Blood Ionized Calcium Digoxin Crossmatch 01/22/21 01/22/21 01/23/21 17:17 23:18 05:29 WBC RBC Hgb Hct MCV MCHC RDW Plt Count Lymph % (Auto) [place] % (Auto) Eos % (Auto) Lymph # (Auto) [place] # (Auto) Eos # (Auto) Seg Neutrophils % Seg Neuts % (Manual) Lymphocytes % (Manual) Monocytes % (Manual) Seg Neutrophils # Seg Neutrophils # Man Lymphocytes # (Manual) Monocytes # (Manual) PT INR ABG pH POC ABG pCO2 POC ABG pO2 ABG pO2 ABG HCO3 ABG O2 Saturation ABG Base Excess ABG Hemoglobin ABG Oxyhemoglobin ABG Sodium ABG Potassium ABG Chloride ABG Glucose Oxyhemoglobin Sodium Potassium Chloride Carbon Dioxide BUN Creatinine Glucose POC Glucose 135 H 128 H 129 H Lactic Acid Calcium Phosphorus Magnesium Total Bilirubin AST ALT Alkaline Phosphatase Total Protein Albumin Triglycerides Arterial Blood Glucose Arterial Blood Ionized Calcium Digoxin Crossmatch 01/23/21 01/23/21 01/23/21 05:45 11:28 16:39 WBC RBC Hgb Hct MCV MCHC RDW Plt Count Lymph % (Auto) [place] % (Auto) Eos % (Auto) Lymph # (Auto) [place] # (Auto) Eos # (Auto) Seg Neutrophils % Seg Neuts % (Manual) Lymphocytes % (Manual) Monocytes % (Manual) Seg Neutrophils # Seg Neutrophils # Man Lymphocytes # (Manual) Monocytes # (Manual) PT INR ABG pH POC ABG pCO2 POC ABG pO2 ABG pO2 ABG HCO3 ABG O2 Saturation ABG Base Excess ABG Hemoglobin ABG Oxyhemoglobin ABG Sodium ABG Potassium ABG Chloride ABG Glucose Oxyhemoglobin Sodium Potassium Chloride Carbon Dioxide BUN 96 H Creatinine 10.8 H Glucose 124 H POC Glucose 160 H 116 H Lactic Acid Calcium Phosphorus Magnesium 2.50 H Total Bilirubin AST ALT Alkaline Phosphatase Total Protein Albumin Triglycerides Arterial Blood Glucose Arterial Blood Ionized Calcium Digoxin Crossmatch 01/24/21 01/24/21 01/24/21 00:02 04:45 05:01 WBC RBC Hgb Hct MCV MCHC RDW Plt Count Lymph % (Auto) [place] % (Auto) Eos % (Auto) Lymph # (Auto) [place] # (Auto) Eos # (Auto) Seg Neutrophils % Seg Neuts % (Manual) Lymphocytes % (Manual) Monocytes % (Manual) Seg Neutrophils # Seg Neutrophils # Man Lymphocytes # (Manual) Monocytes # (Manual) PT INR ABG pH POC ABG pCO2 POC ABG pO2 ABG pO2 ABG HCO3 ABG O2 Saturation ABG Base Excess ABG Hemoglobin ABG Oxyhemoglobin ABG Sodium ABG Potassium ABG Chloride ABG Glucose Oxyhemoglobin Sodium Potassium 3.5 L Chloride Carbon Dioxide BUN 56 H Creatinine 7.7 H Glucose 102 H POC Glucose 120 H 108 H Lactic Acid Calcium Phosphorus Magnesium Total Bilirubin AST ALT Alkaline Phosphatase Total Protein Albumin Triglycerides Arterial Blood Glucose Arterial Blood Ionized Calcium Digoxin Crossmatch 01/24/21 01/24/21 01/24/21 12:03 17:07 23:55 WBC RBC Hgb Hct MCV MCHC RDW Plt Count Lymph % (Auto) [place] % (Auto) Eos % (Auto) Lymph # (Auto) [place] # (Auto) Eos # (Auto) Seg Neutrophils % Seg Neuts % (Manual) Lymphocytes % (Manual) Monocytes % (Manual) Seg Neutrophils # Seg Neutrophils # Man Lymphocytes # (Manual) Monocytes # (Manual) PT INR ABG pH POC ABG pCO2 POC ABG pO2 ABG pO2 ABG HCO3 ABG O2 Saturation ABG Base Excess ABG Hemoglobin ABG Oxyhemoglobin ABG Sodium ABG Potassium ABG Chloride ABG Glucose Oxyhemoglobin Sodium Potassium Chloride Carbon Dioxide BUN Creatinine Glucose POC Glucose 136 H 122 H 112 H Lactic Acid Calcium Phosphorus Magnesium Total Bilirubin AST ALT Alkaline Phosphatase Total Protein Albumin Triglycerides Arterial Blood Glucose Arterial Blood Ionized Calcium Digoxin Crossmatch 01/25/21 01/25/21 01/25/21 05:15 06:00 07:47 WBC RBC Hgb Hct MCV MCHC RDW Plt Count Lymph % (Auto) [place] % (Auto) Eos % (Auto) Lymph # (Auto) [place] # (Auto) Eos # (Auto) Seg Neutrophils % Seg Neuts % (Manual) Lymphocytes % (Manual) Monocytes % (Manual) Seg Neutrophils # Seg Neutrophils # Man Lymphocytes # (Manual) Monocytes # (Manual) PT INR ABG pH POC ABG pCO2 POC ABG pO2 ABG pO2 ABG HCO3 ABG O2 Saturation ABG Base Excess ABG Hemoglobin ABG Oxyhemoglobin ABG Sodium ABG Potassium ABG Chloride ABG Glucose Oxyhemoglobin Sodium 116 L* D Potassium Chloride 79.1 L Carbon Dioxide 17 L D BUN 72 H Creatinine 7.4 H Glucose 2242 H* POC Glucose 117 H 138 H Lactic Acid Calcium 6.7 L D Phosphorus Magnesium Total Bilirubin AST ALT Alkaline Phosphatase Total Protein Albumin Triglycerides Arterial Blood Glucose Arterial Blood Ionized Calcium Digoxin Crossmatch 01/25/21 01/25/21 01/25/21 08:35 11:49 18:42 WBC RBC Hgb Hct MCV MCHC RDW Plt Count Lymph % (Auto) [place] % (Auto) Eos % (Auto) Lymph # (Auto) [place] # (Auto) Eos # (Auto) Seg Neutrophils % Seg Neuts % (Manual) Lymphocytes % (Manual) Monocytes % (Manual) Seg Neutrophils # Seg Neutrophils # Man Lymphocytes # (Manual) Monocytes # (Manual) PT INR ABG pH POC ABG pCO2 POC ABG pO2 ABG pO2 ABG HCO3 ABG O2 Saturation ABG Base Excess ABG Hemoglobin ABG Oxyhemoglobin ABG Sodium ABG Potassium ABG Chloride ABG Glucose Oxyhemoglobin Sodium Potassium Chloride 97.0 L Carbon Dioxide BUN 92 H Creatinine 11.0 H Glucose 125 H POC Glucose 130 H 122 H Lactic Acid Calcium Phosphorus Magnesium Total Bilirubin AST ALT Alkaline Phosphatase Total Protein Albumin Triglycerides Arterial Blood Glucose Arterial Blood Ionized Calcium Digoxin Crossmatch 01/25/21 01/26/21 01/26/21 23:37 04:19 05:48 WBC RBC Hgb Hct MCV MCHC RDW Plt Count Lymph % (Auto) [place] % (Auto) Eos % (Auto) Lymph # (Auto) [place] # (Auto) Eos # (Auto) Seg Neutrophils % Seg Neuts % (Manual) Lymphocytes % (Manual) Monocytes % (Manual) Seg Neutrophils # Seg Neutrophils # Man Lymphocytes # (Manual) Monocytes # (Manual) PT INR ABG pH POC ABG pCO2 POC ABG pO2 ABG pO2 ABG HCO3 ABG O2 Saturation ABG Base Excess ABG Hemoglobin ABG Oxyhemoglobin ABG Sodium ABG Potassium ABG Chloride ABG Glucose Oxyhemoglobin Sodium Potassium Chloride Carbon Dioxide BUN 49 H Creatinine 7.1 H Glucose POC Glucose 144 H 125 H Lactic Acid Calcium Phosphorus Magnesium 1.50 L Total Bilirubin AST ALT Alkaline Phosphatase Total Protein Albumin Triglycerides Arterial Blood Glucose Arterial Blood Ionized Calcium Digoxin Crossmatch 01/26/21 01/26/21 01/27/21 11:16 18:35 00:01 WBC RBC Hgb Hct MCV MCHC RDW Plt Count Lymph % (Auto) [place]ard % (Auto) Eos % (Auto) Lymph # (Auto) [place]ard # (Auto) Eos # (Auto) Seg Neutrophils % Seg Neuts % (Manual) Lymphocytes % (Manual) Monocytes % (Manual) Seg Neutrophils # Seg Neutrophils # Man Lymphocytes # (Manual) Monocytes # (Manual) PT INR ABG pH POC ABG pCO2 POC ABG pO2 ABG pO2 ABG HCO3 ABG O2 Saturation ABG Base Excess ABG Hemoglobin ABG Oxyhemoglobin ABG Sodium ABG Potassium ABG Chloride ABG Glucose Oxyhemoglobin Sodium Potassium Chloride Carbon Dioxide BUN Creatinine Glucose POC Glucose 122 H 127 H 130 H Lactic Acid Calcium Phosphorus Magnesium Total Bilirubin AST ALT Alkaline Phosphatase Total Protein Albumin Triglycerides Arterial Blood Glucose Arterial Blood Ionized Calcium Digoxin Crossmatch 01/27/21 01/27/21 01/27/21 04:19 04:19 05:25 WBC 12.4 H RBC 2.79 L Hgb 8.6 L Hct 25.1 L MCV MCHC RDW 16.1 H Plt Count Lymph % (Auto) 7.5 L [place]ard % (Auto) 9.3 H Eos % (Auto) 4.8 H Lymph # (Auto) 0.9 L [place] # (Auto) 1.1 H Eos # (Auto) 0.6 H Seg Neutrophils % 78.0 H Seg Neuts % (Manual) Lymphocytes % (Manual) Monocytes % (Manual) Seg Neutrophils # 9.7 H Seg Neutrophils # Man Lymphocytes # (Manual) Monocytes # (Manual) PT INR ABG pH POC ABG pCO2 POC ABG pO2 ABG pO2 ABG HCO3 ABG O2 Saturation ABG Base Excess ABG Hemoglobin ABG Oxyhemoglobin ABG Sodium ABG Potassium ABG Chloride ABG Glucose Oxyhemoglobin Sodium Potassium Chloride 97.9 L Carbon Dioxide BUN 76 H Creatinine 9.9 H Glucose 111 H POC Glucose 129 H Lactic Acid Calcium Phosphorus Magnesium Total Bilirubin AST ALT Alkaline Phosphatase Total Protein Albumin Triglycerides Arterial Blood Glucose Arterial Blood Ionized Calcium Digoxin Crossmatch 01/27/21 01/27/21 01/27/21 11:30 17:08 23:28 WBC RBC Hgb Hct MCV MCHC RDW Plt Count Lymph % (Auto) [place] % (Auto) Eos % (Auto) Lymph # (Auto) [place]ard # (Auto) Eos # (Auto) Seg Neutrophils % Seg Neuts % (Manual) Lymphocytes % (Manual) Monocytes % (Manual) Seg Neutrophils # Seg Neutrophils # Man Lymphocytes # (Manual) Monocytes # (Manual) PT INR ABG pH POC ABG pCO2 POC ABG pO2 ABG pO2 ABG HCO3 ABG O2 Saturation ABG Base Excess ABG Hemoglobin ABG Oxyhemoglobin ABG Sodium ABG Potassium ABG Chloride ABG Glucose Oxyhemoglobin Sodium Potassium Chloride Carbon Dioxide BUN Creatinine Glucose POC Glucose 128 H 158 H 114 H Lactic Acid Calcium Phosphorus Magnesium Total Bilirubin AST ALT Alkaline Phosphatase Total Protein Albumin Triglycerides Arterial Blood Glucose Arterial Blood Ionized Calcium Digoxin Crossmatch 01/28/21 01/28/21 01/28/21 05:17 11:27 18:01 WBC RBC Hgb Hct MCV MCHC RDW Plt Count Lymph % (Auto) [place] % (Auto) Eos % (Auto) Lymph # (Auto) [place]ard # (Auto) Eos # (Auto) Seg Neutrophils % Seg Neuts % (Manual) Lymphocytes % (Manual) Monocytes % (Manual) Seg Neutrophils # Seg Neutrophils # Man Lymphocytes # (Manual) Monocytes # (Manual) PT INR ABG pH POC ABG pCO2 POC ABG pO2 ABG pO2 ABG HCO3 ABG O2 Saturation ABG Base Excess ABG Hemoglobin ABG Oxyhemoglobin ABG Sodium ABG Potassium ABG Chloride ABG Glucose Oxyhemoglobin Sodium Potassium Chloride Carbon Dioxide BUN Creatinine Glucose POC Glucose 113 H 134 H 111 H Lactic Acid Calcium Phosphorus Magnesium Total Bilirubin AST ALT Alkaline Phosphatase Total Protein Albumin Triglycerides Arterial Blood Glucose Arterial Blood Ionized Calcium Digoxin Crossmatch 01/29/21 01/29/21 01/29/21 04:54 06:45 11:10 WBC RBC Hgb Hct MCV MCHC RDW Plt Count Lymph % (Auto) [place] % (Auto) Eos % (Auto) Lymph # (Auto) [place]ard # (Auto) Eos # (Auto) Seg Neutrophils % Seg Neuts % (Manual) Lymphocytes % (Manual) Monocytes % (Manual) Seg Neutrophils # Seg Neutrophils # Man Lymphocytes # (Manual) Monocytes # (Manual) PT INR ABG pH POC ABG pCO2 POC ABG pO2 ABG pO2 ABG HCO3 ABG O2 Saturation ABG Base Excess ABG Hemoglobin ABG Oxyhemoglobin ABG Sodium ABG Potassium ABG Chloride ABG Glucose Oxyhemoglobin Sodium Potassium 3.4 L Chloride Carbon Dioxide BUN 51 H Creatinine 6.9 H Glucose 120 H POC Glucose 111 H 106 H Lactic Acid Calcium Phosphorus 2.10 L Magnesium Total Bilirubin AST ALT Alkaline Phosphatase 182 H Total Protein 6.0 L Albumin 2.9 L Triglycerides Arterial Blood Glucose Arterial Blood Ionized Calcium Digoxin Crossmatch 01/29/21 01/30/21 01/30/21 16:47 04:15 06:55 WBC RBC Hgb Hct MCV MCHC RDW Plt Count Lymph % (Auto) [place] % (Auto) Eos % (Auto) Lymph # (Auto) [place]ard # (Auto) Eos # (Auto) Seg Neutrophils % Seg Neuts % (Manual) Lymphocytes % (Manual) Monocytes % (Manual) Seg Neutrophils # Seg Neutrophils # Man Lymphocytes # (Manual) Monocytes # (Manual) PT INR ABG pH POC ABG pCO2 POC ABG pO2 ABG pO2 ABG HCO3 ABG O2 Saturation ABG Base Excess ABG Hemoglobin ABG Oxyhemoglobin ABG Sodium ABG Potassium ABG Chloride ABG Glucose Oxyhemoglobin Sodium Potassium Chloride Carbon Dioxide BUN 73 H Creatinine 9.2 H Glucose 119 H POC Glucose 110 H 126 H Lactic Acid Calcium Phosphorus 4.70 H D Magnesium Total Bilirubin AST ALT Alkaline Phosphatase Total Protein Albumin Triglycerides Arterial Blood Glucose Arterial Blood Ionized Calcium Digoxin Crossmatch 01/30/21 01/31/21 01/31/21 18:25 00:51 07:15 WBC RBC Hgb Hct MCV MCHC RDW Plt Count Lymph % (Auto) [place] % (Auto) Eos % (Auto) Lymph # (Auto) [place] # (Auto) Eos # (Auto) Seg Neutrophils % Seg Neuts % (Manual) Lymphocytes % (Manual) Monocytes % (Manual) Seg Neutrophils # Seg Neutrophils # Man Lymphocytes # (Manual) Monocytes # (Manual) PT INR ABG pH POC ABG pCO2 POC ABG pO2 ABG pO2 ABG HCO3 ABG O2 Saturation ABG Base Excess ABG Hemoglobin ABG Oxyhemoglobin ABG Sodium ABG Potassium ABG Chloride ABG Glucose Oxyhemoglobin Sodium Potassium Chloride Carbon Dioxide BUN Creatinine Glucose POC Glucose 117 H 134 H 134 H Lactic Acid Calcium Phosphorus Magnesium Total Bilirubin AST ALT Alkaline Phosphatase Total Protein Albumin Triglycerides Arterial Blood Glucose Arterial Blood Ionized Calcium Digoxin Crossmatch 01/31/21 01/31/21 02/01/21 11:45 23:15 05:51 WBC RBC Hgb Hct MCV MCHC RDW Plt Count Lymph % (Auto) [place] % (Auto) Eos % (Auto) Lymph # (Auto) [place] # (Auto) Eos # (Auto) Seg Neutrophils % Seg Neuts % (Manual) Lymphocytes % (Manual) Monocytes % (Manual) Seg Neutrophils # Seg Neutrophils # Man Lymphocytes # (Manual) Monocytes # (Manual) PT INR ABG pH POC ABG pCO2 POC ABG pO2 ABG pO2 ABG HCO3 ABG O2 Saturation ABG Base Excess ABG Hemoglobin ABG Oxyhemoglobin ABG Sodium ABG Potassium ABG Chloride ABG Glucose Oxyhemoglobin Sodium Potassium Chloride Carbon Dioxide BUN Creatinine Glucose POC Glucose 119 H 120 H 125 H Lactic Acid Calcium Phosphorus Magnesium Total Bilirubin AST ALT Alkaline Phosphatase Total Protein Albumin Triglycerides Arterial Blood Glucose Arterial Blood Ionized Calcium Digoxin Crossmatch Allied health notes reviewed: nursing
[2021-02-01] MEDS: diphenhydrAMINE 50 MG/ML VIAL IV PRN (14:15)
--- NOTE | 2021-02-01 14:53 | Progress Note ---
Assessment and Plan Severe Sepsis with shock Streptococcus bovis bacteremia/Prevotella bacteremia Gwendolyn albicans tracheal aspirate Small bowel obstruction/necrotic bowel s/p ex lap with extensive lysis of adhesions, 2 small bowel resections with primary anastomosis, right hemicolectomy, jejunal colonic anastomosis, segmental small bowel resection Postoperative ileus Atrial fibrillation with RVR Leukocytosis Hypochloremia Gwendolyn albicans in tracheal aspirate from 12/24 ESRD on PD, PermCath to be placed Transaminitis Systolic CHF(EF 35%) Crohn's disease Hypertension -[facility], surgery, infectious disease, nephrology, vascular surgery, cardiology consulted, appreciate recommendations -12/24 S/p ex lap with extensive expectations, 2 small bowel resections with primary anastomosis with surgery on 12/23 -s/p PICC and Permacath placement with vascular surgery on 12/27 -Extubated on 12/28, reintubated 12/31 for respiratory distress and extubated 01/08 -12/29 echocardiogram shows moderate concentric LVH, small pericardial effusion, transmitral Doppler flow pattern is grade 1 abnormal relaxation pattern, left- ventricular systolic function normal, LVEF 50 to 55%, no wall motion abnormalities. -01/01 CT abdomen/pelvis shows small pericardial effusion, mild coronary artery atherosclerotic calcification, small bilateral pleural effusions with associated volume loss, no convincing evidence of bowel obstruction or inflammation, postoperative changes from interval/recent midline laparotomy with a moderate amount of free fluid throughout the abdomen, small amount of dependent free air presumably postoperative -01/02 s/p ex lap, resection of perforated anastamosis, washout and abthera wound vac placement. -01/04 s/p ex lap with right hemicolectomy. -01/06 s/p exploratory laparotomy, Jejunal colonic anastomosis, Segmental small bowel resection. -s/p Vasopressor support with Levophed and vasopressin -Transitioned to HD from PD -HD per nephro, Epogen with HD -Strict NPO -cont TPN, Octreotide drip -s/p NGT to LIWS, plan for G-tube placement - s/p rectal tube -s/p IV antibiotics -Tobacco abuse cessation counseling -Trend CBC, BMP DVT/GI prophylaxis: PPI, heparin subcu, SCDs to bilateral lower extremities while in bed Brief Course: This is a 60 YO Male with ESRD on PD, GERD, Crohn's Disease, Nicotine Dependence, HTN, Systolic CHF(EF 35%) who presented to the emergency department on 12/22 with complaints of abdominal pain which began shortly after eating fast food rated 10/10 which is periumbilical, constant, associated with fever, nausea and multiple sites of vomiting and self-reported inability to undergo PD. In the emergency room patient underwent a CT scan of the abdomen/pelvis which revealed evidence of partial small bowel obstruction, symptoms were consistent with bacterial peritonitis. Patient was admitted to the hospital service with sepsis, peritonitis, and small bowel obstruction with consults to general surgery, nephrology, infectious disease and [facility]. Daily clinical course: 12/23. Patient had temperature 101.2 F, tachycardia and elevated lactic acid on admission. Meet sepsis criteria. Started on IV antibiotics. ID has been consulted. Surgery consulted this a.m.-advised laparoscopy. He remains on NG tube connected to suction. 12/24. Patient was noted to have peritonitis yesterday and patient undergoing exploratory laparotomy. Patient remained intubated after procedure and is in ICU. Now on broad-spectrum antibiotics. ID on board. 12/25. Remains mechanically ventilated and sedated. Temp 103 Fahrenheit. Antibiotics broadened-ID added fluconazole and Flagyl. Blood cultures ordered. Plan to repeat CT abdomen tomorrow if not better. Surgery following. 12/26: Patient remains on mechanical ventilation on CMV tidal line 550, rate of 14, PEEP of 8 and 30% FiO2 and sedated on fentanyl 4 micrograms. Today we will remove his Jeffery and [facility] dropped his rate controlled him on CPAP. We will trend CBC given recent drop in H/H. 12/27: Patient remains intubated on CMV tidal volume 550, rate 12, PEEP 8 on 30% FiO2 at the time my examination. Patient's TPN will be changed to PPN. Patient's fentanyl drip will be changed to IV push fentanyl and have a permacath placed today and midline. Patient was placed on a spontaneous breathing trial was switched back to CMV prior to procedure. 12/28: Patient on fentanyl but awake and follows commands. At the time of my ex amination he was on a CPAP trial and is scheduled to receive HD today. s/o permacath and PICC placement with vascular yesterday. His blood culture grew Prevotella and addition to Streptococcus bovis. This evening Dr. Spicer attempted to extubate the patient and his heart rate went to the 180s. Stat EKG obtained and cardiology consulted. 12/29: Patient was started on amiodarone IV for A. fib RVR yesterday and today he is more rate controlled into the 70s and 80s. Patient was extubated yesterday and is currently on Ventimask. Patient will be transferred to [facility]. Patient continues to be n.p.o. with TPN and NG tube to LIS. He is hypokalemic today which was repleted. 12/30; patient was on IV amiodarone for treatment with RVR, rate is controlled. Patient was off oxygen. patient is n.p.o. and on TPN. Surgery is following the patient. 12/31: Patient was intubated overnight for respiratory distress and this morning on examination he was on assist control tidal volume 450, rate 20, PEEP 6, 100% FiO2 and RT was getting a ABG to adjust vent settings. Patient had a acute bump in WBC and per ID recommendations we will obtain a CT abdomen/pelvis if leukocytosis persist. Patient is on TPN and sedated with Levophed. Patient is also on vasopressor support with Levophed. Per surgery his ileus is resolving however will maintain OGT to LIWS. 01/01: Patient was started on a vasopressin yesterday late evening. This morning patient is on 20 mcg of Levophed and 0.03 vasopressin and sedated on 20 mcg of propofol. Patient WBC increased today and he is hypokalemic. We will treat hyperkalemia. Patient had a CT chest and abdomen/pelvis pending. The time examination total of 450, rate 20, PEEP of 6 and 35 percent FiO2. Per RN, Dr Pollock has stated that the patient will be returning to the OR today for likely anastomosis seen on CT abdomen/pelvis. 01/02: Patient noted, WBC improving, but noted to have anemia, will transfuse additional unit of Blood and repeat H/H. continue supportive care. 01/03: Continue to wean pressors, ABX PER ID, patient to return to OR today for washout and possible closure, CONTINUE TPN /12: Continues to show some improvement. Today is POD#12 s/p ex lap with extensive lysis of adhesions and two small bowel resections with primary anastam osis for SBO with necrotic segment small bowel. POD#3 s/p ex lap, resection of perforated anastamosis, washout and abthera wound vac placement. POD#1 s/p ex lap with right hemicolectomy. Surgery planning to take back to the OR on Saturday with the hope to anastamos ileum to transverse colon and close abdomen. keep NGT to suction. Pt in deep sedation due to open abdomen. Per ID -Continue IV Zosyn, renally dosed for Strep bacteremia treatment till 01/06/2021 -On TPN 01/05: Patient continues on HD, anticipate return to OR tomorrow for closure and anastemosis. Continues with deep sedation due to open abdomen 01/06: Continue supportive care, monitor pressures and electrolytes. He is post op Exploratory laparotomy, 2. Jejunal colonic anastomosis,3. Segmental small bowel resection and anastemosis closure today. Continue wound vac 5: Continue supportive care, Today is POD#15 s/p ex lap with extensive lysis of adhesions and two small bowel resections with primary anastamosis for SBO with necrotic segment small bowel. POD#6 s/p ex lap, resection of perforated anastamosis, washout and abthera wound vac placement. POD#4 s/p ex lap with right hemicolectomy. POD #1 exploratory laparotomy, 2. Jejunal colonic anastomosis,3. Segmental small bowel resection. Continue to monitor and correct electrolytes. Patient remains on fentanyl and TPN with lipids. Still hypoactive bowel sounds. 516: Patient now extubated, asked when he can go home, Still lethargic. Continu e wound management, wound vac, Will need Rehab eval prior to discharge. 01/09: Patient remains on TPN, was started on labetalol drip per cardiology, patient had uncontrolled hypertension today however he cannot be given p.o. medications ileus resolves per surgery. Patient received hemodialysis today. NG tube remains to low intermittent suction. 01/10: Patient has some leukocytosis, slight hypokalemia and hyponatremia, metabolic acidosis. NG tube to LIWS, continue TPN. Patient will be downgraded to IMCU today. [facility] is working on placement. Will change frequency of hydralazine and discontinue labetalol drip. We will obtain a.m. BMP/mag/Phos and CBC. Infectious disease will like to start Zosyn if leukocytosis continues to worsen. 01/11: Patient leukocytosis has slightly improved potassium with in normal limits and other electrolytes are elevated but patient is scheduled for HD today. Remains on RA and A,A,Ox4. BP better controlled but remains elevated and we will increase clonidine dose. 01/12/2021; patient's blood pressure is better after dialysis and as needed IV medications and clonidine patch. Patient is followed by general surgery. Patient was alert and oriented and asked when he is going home. 01/13: Surgery is concerned about a leak at his anastamosis given increased output and will treat as controlled fistula and start an octreotide drip. And per surgery if he requires operative intervention will likely need to be left in discontinuity and eventual ileostomy as he has already failed two anastamoses. Patient still has tongue swelling and slurred speech. He is on Benadryl. 01/14: Patient's tongue swelling is improved, patient is alert and oriented, CAM ICU negative. Continue NG tube to low wall intermittent suction. Leukocytosis is improving. Hypomagnesemia resolved. Epogen with HD 01/15: Patient tongue swelling is much improved, bladder scan completed by bedside RN and he needed to be straight cathed. NGT output decreased. Leukocytosis improving. Patient has been having episodes of hypoglycemia during the day and he is on cyclic TPN, Lantus rescheduled to nightly and dosage decreased. 01/16: Continue management per ID and surgery. Will defer repeat CT of the abdomen to the team surgery has been approved by nephrology. Continue current diet and advance all to ice if okay with surgery discussed with nursing staff. 01/17: Discussed surgical recommendation of strict n.p.o. except for small amount of ice as patient has already failed to anastomosis. And risk for additional surgery with tissues were extremely friable from previous scar. He continues on octreotide drip to slow down GI output HARIS drain remains in place with NG suction for decompression. Patient verbalized understanding although stressed about being discharged. We will continue IMCU care unless otherwise advised by surgery. Prognosis remains guarded continue to monitor electrolytes considering GI output. 01/18: Continue supportive care, BP mildly elevated, continue to monitor, continue current therapy, if no return to PO soon may consider Increasing clonidine to 0.3, PO when ok with surgery. 01/19:Continue supportive care, Per ID continue IV Zosyn, plan to stop at 3 weeks from last surgery end date: 01/24/2021. Other management per surgery. Continue TPN. 01/20: Discussed with Surgery, will continue current management. Advised patient of the findings and plan. 01/21: Continue supportive care. Continue management per surgery advance diet when okay with surgery. Plan of care discussed with the patient in detail. 01/22: NG tube to be replaced explained to the patient why this is important. I agree with PT OT discussed with nursing staff very important to let the PT team know that they should manage HARIS drain while patient is ambulating so that he does not come out. Continue current management. Change in ocreotide to q8h and d/c drip NOTED 01/23: Continue supportive care, HD today, counselling provided to the patient on compliance with medical management 01/24: Replace NGT, Continue management per Surgery. POD 32. Mild hypokalemia noted, will replace. 01/25: Brief summary patient is a 60-year-old male admitted with abdominal pain and noted to have necrotic bowel concerning for PD associated peritonitis. Catheter was placed to convert to HD. Patient also underwent multiple surgical interventions. Initial cultures showed Streptococcus bovis bacteremia and Prevotella bacteremia a COLIN was without vegetations repeat blood cultures have been negative. Part of the surgery is included ex lap, resection of perforated anastomosis, washout and a better wound VAC placement on 01/01. While progress has remained slow if has indeed shown some improvement. Patient is agitated about being in the hospital but understands the care management been provided his vital to his health and to prevent further surgeries. The NG tube has been pulled out 2 days ago he vehemently refused the tube being placed back but after a day of nausea with associated vomiting he was accepting of the chest tube to put back. He continues on TPN. We will continue to monitor electrolytes and correct as needed. This a.m. and erroneous blood was obtained likely from the same line as TPN repeat was done which showed normalizing factors. Patient completed antibiotics on 01/25/2020 . 01/26 Patient with severe sepsis with septic shock, small bowel obstruction, necrotic bowel s/p multiple surgeries. He complains of abdominal pain. No fever currently. He asked me when is he going home and i explained that he is not yet stable for discharge 01/27 Patient with severe sepsis with septic shock, small bowel obstruction, nec rotic bowel s/p multiple surgeries. He complains of abdominal pain. No fever currently. Paroxysmal atrial fib managed by cardiology 01/28 Patient with severe sepsis with septic shock, small bowel obstruction, necrotic bowel s/p multiple surgeries. No fever currently. No abd pain currently. I discussed with Surgeon, Dr. Pollock. Continue current management. He also has paroxysmal afib, managed by Cardiology. 01/29 Patient with severe sepsis with septic shock, small bowel obstruction, necrotic bowel s/p multiple surgeries. No fever currently. No abd pain currently. I discussed with Surgeon, Dr. Pollock, yesterday. Continue current management. He also has paroxysmal afib, managed by Cardiology. He is on Metoprolol, Digoxin, Clonidine 01/30 Patient with severe sepsis with septic shock, small bowel obstruction, necrotic bowel s/p multiple surgeries. Patient is a 60-year-old male admitted with abdominal pain and noted to have necrotic bowel concerning for PD associated peritonitis. Catheter was placed to convert to HD. Patient also underwent multiple surgical interventions. Initial cultures showed Streptococcus bovis bacteremia and Prevotella bacteremia a COLIN was without vegetations repeat blood cultures have been negative. Part of the surgery is included ex lap, resection of perforated anastomosis, washout and a better wound VAC placement on 01/01. While progress has remained slow if has indeed shown some improvement. Patient is agitated about being in the hospital but understands the care management been provided his vital to his health and to prevent further surgeries. He continues on TPN. No fever currently. Less abdominal pain. I discussed with Surgeon, Dr. Pollock, few days ago. Continue current management. He also has paroxysmal afib, managed by Cardiology. He is on Metoprolol, Digoxin, Clonidine. ESRD on dialysis managed by Nephrology. 01/31: Continue HARIS drain suction. Ongoing treatment for anastomotic leak/controlled low output fistula. Maintain LIWS to NGT and monitor output. continue q 8h ocreotide. cont TPN. Defer to general surgery for NG tube di scontinuation. 02/01: planned for g-tube placement for gastric decompression. Removed NG tube today. S/p HD -tolerated well Subjective Date of service: 02/01/21 Principal diagnosis: Ac hypoxemic resp failure; Severe Sepsis; Peritonitis; Acute SBO; ESRD; CHF Interval history: Patient seen and examined. Medical records and medication list reviewed. No acute event overnight noted by the RN. Patient denies any chest pain or difficulty breathing. Patient remains on TPN Patient plan to have G-tube placement: ordered for CT abdomen pelvis Discussed plan of care at bedside with patient. Objective - Exam Narrative Exam: Gen:Not in acute distress, lying in bed HEENT:Normocephalic , NG tube Neck:supple, no JVD Lungs:Clear to auscultation bilat, no rales Heart:S1 and S2 reg, no murmurs, no rubs or gallop Abd: covered with dressing, HARIS drain, decreased bowel sounds Ext: No edema, no clubbing, no cyanosis Neuro:Awake,alert,oriented X3, moves all extremities psych: Calm, co-operative - Constitutional Vitals: Vital Signs - 12hr 02/01/21 02/01/21 02/01/21 02:55 03:00 05:15 Temperature 98.6 F Pulse Rate 75 71 Respiratory 20 Rate Respiratory 16 Rate [Anterior Abdomen] Blood Pressure 171/84 165/78 O2 Sat by Pulse 96 Oximetry 02/01/21 02/01/21 06:01 06:10 Temperature Pulse Rate 71 74 Respiratory Rate Respiratory Rate [Anterior Abdomen] Blood Pressure 165/78 165/70 O2 Sat by Pulse Oximetry - Labs CBC & Chem 7: 01/27/21 04:19 02/02/21 03:25 Labs: Abnormal lab results 01/31/21 02/01/21 Range/Units 23:15 05:51 POC Glucose 120 H 125 H (70-105) mg/dL HEART Score - HEART Score Troponin: Troponin T 0.021 ng/mL (0.00-0.029) 12/22/20 14:38
[2021-02-01] MEDS: HEPARIN 5,000 UNIT/1 ML VIAL SUB-Q SCH ×2 (16:05→22:01)
[2021-02-01] MEDS: cloNIDine TTS 0.2 MG/24 HR PATCH TD SCH (16:44)
[2021-02-01] MEDS: FAMOTIDINE 20 MG/2 ML INJ IV SCH ×2 (16:47→22:03)
[2021-02-01] MEDS ORDERED: ALTEPLASE 2 MG INJ IV SCH (16:57)
--- NOTE | 2021-02-01 18:41 | Progress Note ---
Assessment and Plan POD#39 s/p ex lap with extensive lysis of adhesions and two small bowel resections with primary anastamosis for SBO with necrotic segment small bowel. POD#30 s/p ex lap, resection of perforated anastamosis, washout and abthera wound vac placement. POD#28 s/p ex lap with right hemicolectomy. POD#26 s/p ex lap, with jejunal-colonic anastamosis and closure of abdomen. Afebrile and stable. - concerned about a leak at his anastamosis. Clinically improved with decreased output that is becoming more serous. Blood supply was evaluated at time of last surgery with ICG and found to be adequate. Pt was on several days of steroids for tongue swelling which may have contributed to leak. Currently since he is stable and afebrile will treat like controlled fistua. He is extremely high risk for additional surgery with tissues that are extremely friable and previous scar tissue that makes his anatomy very difficult to manipulate. If he requires operative intervention will likely need to be left in discontinuity and eventual ileostomy as he has already failed two anastamoses. Continue HARIS drain suction. Will maintain LIWS to NGT and monitor output. HARIS drain must be secured and kept in place. Since HARIS drain has continued to decrease over the last several days, will decrease frequency of octreotide. Spoke to IR about possibly placing CT guided g-tube so that he can be decompressed without having NGT. Pt says he is agreeable to that. CT guided g-tube scheduled for tomorrow. Pt agreed to have NGT replaced to facilitate procedure. Will removed rectal tube, will place bed side commode at bedside. Subjective Date of service: 02/01/21 Narrative: No acute events over night. Pt removed his NGT, and says that he really wants his rectal tube out. He denies nausea at this time. He completed dialysis earlier today. Objective Vital Signs - 12hr 02/01/21 02/01/21 02/01/21 10:30 10:45 11:00 Temperature 98.3 F Pulse Rate 69 68 73 Respiratory 16 Rate Blood Pressure 173/78 177/86 152/59 O2 Sat by Pulse Oximetry 02/01/21 02/01/21 02/01/21 11:15 11:30 11:45 Temperature Pulse Rate 77 76 77 Respiratory Rate Blood Pressure 169/79 170/75 147/74 O2 Sat by Pulse Oximetry 02/01/21 02/01/21 02/01/21 12:00 12:15 12:30 Temperature Pulse Rate 78 78 88 Respiratory Rate Blood Pressure 140/53 137/66 154/57 O2 Sat by Pulse Oximetry 02/01/21 02/01/21 02/01/21 12:45 13:00 13:15 Temperature Pulse Rate 78 80 81 Respiratory Rate Blood Pressure 141/69 144/59 139/67 O2 Sat by Pulse Oximetry 02/01/21 02/01/21 02/01/21 13:30 13:45 14:00 Temperature Pulse Rate 106 H 75 68 Respiratory Rate Blood Pressure 185/101 168/80 159/90 O2 Sat by Pulse Oximetry 02/01/21 02/01/21 02/01/21 14:15 14:30 14:45 Temperature Pulse Rate 78 77 85 Respiratory Rate Blood Pressure 164/85 154/72 169/77 O2 Sat by Pulse Oximetry 02/01/21 02/01/21 02/01/21 14:50 16:03 17:05 Temperature 98.9 F Pulse Rate 80 71 Respiratory 20 Rate Blood Pressure 167/69 141/74 O2 Sat by Pulse 97 97 Oximetry 02/01/21 18:11 Temperature Pulse Rate 70 Respiratory Rate Blood Pressure 159/79 O2 Sat by Pulse Oximetry - General physical appearance well developed, well nourished - Respiratory normal expansion, normal respiratory effort - Abdomen soft, not tender, other (HARIS drain with small amount brown drainage. wound vac in place) - Labs 01/27/21 04:19 01/30/21 04:15
[2021-02-01] MEDS ORDERED: HYDROCORTISONE 1% CREAM 28.4GM TP PRN (18:43)
--- NOTE | 2021-02-01 19:13 | XRay Report ---
ABDOMEN 1 VIEW(S) INDICATION / CLINICAL INFORMATION: NGT placement. COMPARISON: None available. FINDINGS: TUBES / LINES: Gastric tube tip and side-port are within the stomach in satisfactory position. There is a drain in the upper abdomen. BOWEL GAS PATTERN: No significant abnormality. FREE AIR / EXTRALUMINAL GAS: None seen. ADDITIONAL FINDINGS: No significant additional findings. IMPRESSION: 1. Gastric tube in good position. Signer Name: Addy French MD Signed: 02/01/2021 7:08 PM Workstation Name: [id number]
[2021-02-01] MEDS ORDERED: FAT EMULSIONS 20% 250 ML IV SCH (20:00)
[2021-02-01] MEDS ORDERED: TOTAL PARENTERAL NUTRITION 2,016 ML IV SCH (20:00)
[2021-02-01] MEDS: INSULIN GLARGINE 100 UNITS/ML SUB-Q SCH (22:21)
[2021-02-01] MEDS: OCTREOTIDE 50 MCG in SODIUM CHLORIDE 0.9% 50 ML IV SCH (22:28)
[2021-02-01] MEDS: HYDROmorphone 1 MG/1 ML INJ IV PRN (22:31)
[2021-02-01] MEDS: ONDANSETRON 4 MG/2 ML INJ IV PRN (22:35)
[2021-02-02 04:20] LABS: Calcium 8.6 mg/dL (8.4-10.2)
[2021-02-02] MEDS: INSULIN LISPRO 100 UNIT/ML SUB-Q SCH ×4 (04:54→19:09)
[2021-02-02] MEDS: METOPROLOL TARTRATE 5 MG/5 ML INJ IV SCH ×6 (05:04→21:48)
[2021-02-02] MEDS: hydrALAZINE 20 MG/1 ML INJ IV SCH ×6 (05:05→21:56)
[2021-02-02] MEDS: OCTREOTIDE 50 MCG in SODIUM CHLORIDE 0.9% 50 ML IV SCH ×3 (05:06→22:00)
--- NOTE | 2021-02-02 09:22 | Progress Note ---
Assessment and Plan Assessment: * ESRD previously on peritoneal dialysis; now on back up HD (on peritoneal dialysis for 2 years) * Small bowel obstruction --s/p ex-lap with jejuno-ileal anastamosis --s/p ex lap with extensive lysis of adhesions and two small bowel resections with primary anastamosis for SBO with necrotic segment small bowel. --s/p ex lap, resection of perforated anastamosis, washout and abthera wound vac placement. --s/p ex lap with right hemicolectomy. * Acute respiratory failure * Septic shock - resolved * Bacteremia - resolved * Hyperkalemia * Anemia of ESRD * Atrial fibrilation, new onset * Post op ileus Plan: * Continue HD MWF via left IJ permcath (12/27); due tomorrow * 3K bath with dialysis * UF as tolerated * Epogen 10k units prn w/ dialysis * Rate control per cardiology * Abx per primary team/ID * Nutrition per primary team * Maintain MAP >65 * Surgery, pulm notes appreciated-> note plans for potential IR-guided G-tube placement * He will also require outpatient hemodialysis chair prior to discharge * His BUN is much improved. Most likely due to hypercatabolic state. Continue 4-hour of dialysis Subjective Date of service: 02/02/21 Principal diagnosis: Ac hypoxemic resp failure; Severe Sepsis; Peritonitis; Acute SBO; ESRD; CHF Interval history: No acute events noted, resting this AM Objective - Exam Narrative Exam: - General Limitations: Physical Limitation General appearance: no acute distress - Head Head exam: Present: atraumatic, normocephalic - Eye Eye exam: Present: normal appearance, EOMI - Neck Neck exam: Present: normal inspection - Respiratory Respiratory exam: normal breathing patterns - Cardiovascular Cardiovascular Exam: Present: normal rhythm, tachycardia - GI/Abdominal GI/Abdominal exam: Present: soft, distended (slightly), tenderness (periumbil ical ) - Extremities Exam Extremities exam: Present: normal inspection; LIJ CVC noted - Neurological Exam Neurological exam: sedated - Psychiatric Psychiatric exam: opens eyes - Skin Skin exam: Present: warm, dry, intact, normal color - Vital Signs Vital signs: Vital Signs - 12hr 02/01/21 02/01/21 02/01/21 22:00 22:25 22:50 Temperature Pulse Rate 74 74 Respiratory Rate Blood Pressure 153/79 153/74 Blood Pressure [Right] O2 Sat by Pulse 96 Oximetry 02/02/21 02/02/21 02/02/21 00:28 04:33 05:04 Temperature 99 F 98.9 F Pulse Rate 72 66 66 Respiratory 18 18 Rate Blood Pressure 150/72 Blood Pressure 145/75 150/72 [Right] O2 Sat by Pulse 95 97 Oximetry 02/02/21 02/02/21 05:05 07:58 Temperature 98.9 F Pulse Rate 66 66 Respiratory 18 Rate Blood Pressure 150/72 141/78 Blood Pressure [Right] O2 Sat by Pulse 100 Oximetry - Lab 01/27/21 04:19 02/02/21 03:25 Most recent lab results ABG pH 7.345 pH Units (7.350-7.450) L 01/07/21 17:14 ABG pCO2 40.3 mm Hg 01/07/21 17:14 ABG pO2 67.4 mm Hg (80.0-90.0) L 01/07/21 17:14 ABG HCO3 21.5 mmol/L (20.0-26.0) 01/07/21 17:14 ABG O2 Saturation 94.3 % (95.0-99.0) L 01/07/21 17:14 Calcium 8.6 mg/dL (8.4-10.2) 02/02/21 03:25 Phosphorus 1.80 mg/dL (2.5-4.5) L 02/02/21 03:25 Magnesium 1.60 mg/dL (1.7-2.3) L 02/02/21 03:25 Medications & Allergies - Medications Allergies/Adverse Reactions: Allergies No Known Allergies Allergy (Verified 06/09/20 15:27) Home Medications: Home Medications Medication Instructions Recorded Confirmed Last Taken Type Albuterol Mdi (or & Nicu Only) 2 puff IH QID PRN #1 inhalation 04/01/17 11/01/20 10/31/20 09:00 Rx [ProAir HFA Inhaler] Calcium Acetate 667 mg PO DAILY 04/20/20 11/01/20 10/31/20 09:00 History Centrum Men's Tablet 1 tab PO DAILY 04/20/20 11/01/20 10/31/20 09:00 History Cinacalcet 30 mg PO DAILY 08/2611/01/20 10/31/20 09:00 History Dialyvite with Zinc Tablet 1 tab PO DAILY 04/20/20 11/01/20 10/31/20 09:00 History Magnesium 250 mg PO BID 04/20/20 11/01/20 10/31/20 17:00 History Triamcinolone 0.1% 1 1000units TRANSDERMA DAILY 04/20/20 11/01/20 10/31/20 09:00 History Vit B12/Folic Acid/B6/Aa No.15 1,000 mg PO DAILY 04/20/20 11/01/20 10/31/20 09 :00 History amLODIPine 10 mg PO DAILY 06/09/20 11/01/20 10/31/20 09:00 History AtorvaSTATin 40 mg PO HS 11/01/20 11/01/20 10/31/20 21:00 History Benadryl 25 mg PO HS 11/01/20 11/01/20 10/31/20 21:00 History Diclofenac 1 TRANSDERMA QID 11/01/20 10/31/20 19:00 History Fluticasone Propionate 1 spray INTRANASAL DAILY 11/01/20 11/01/20 10/31/20 09:00 History Vitamin D3 2,000 units 11/01/20 10/31/20 09:00 History carvediloL 12.5 mg PO DAILY 11/01/20 11/01/20 10/31/20 09:00 History hydrALAZINE 100 mg PO TID 11/01/20 11/01/20 10/31/20 19:00 History Active Medications: Generic Name Dose Route Start Last Admin Trade Name Freq PRN Reason Stop Dose Admin Acetaminophen 650 mg 12/31/20 15:30 01/21/21 05:28 Acetaminophen 650 Mg Rect Supp [place] 650 mg Q6H PRN Administration Non Cardiac Pain or Temp>100.5 Clonidine HCl 0.2 mg 01/11/21 10:00 02/01/21 16:44 Clonidine Tts 0.2 Mg/24 Hr Patch TD 0.2 mg We THOMAS Administration Dextrose 50 ml 01/14/21 17:59 01/18/21 15:10 Dextrose 50% In Water (25gm) 50 Ml Syringe IV 20 ml Q30MIN PRN Administration Hypoglycemia Protocol Digoxin 0.125 mg 01/09/21 12:00 01/31/21 15:28 Digoxin 0.5 Mg/2 Ml Inj IV 0.125 mg Q48H THOMAS Administration Diphenhydramine HCl 50 mg 01/20/21 10:10 02/01/21 14:15 Diphenhydramine 50 Mg/Ml Vial IV 50 mg Q6H PRN Administration Itching Famotidine 10 mg 12/24/20 13:00 02/01/21 22:03 Famotidine 20 Mg/2 Ml Inj IV 10 mg BID THOMAS Administration Haloperidol Lactate 5 mg 12/29/20 14:16 01/22/21 23:56 Haloperidol Lactate 5 Mg/1 Ml Inj IV 5 mg Q12H PRN Administration Agitation Heparin Sodium (Porcine) 5,000 unit 12/24/20 10:00 02/01/21 22:01 Heparin 5,000 Unit/1 Ml Vial SUB-Q 5,000 unit Q12HR THOMAS Administration Hydralazine HCl 10 mg 01/10/21 14:00 02/02/21 05:06 Hydralazine 20 Mg/1 Ml Inj IV 10 mg Q4HR THOMAS Administration Hydrocortisone Acetate 1 applic 02/01/21 18:43 Hydrocortisone 1% Cream 28.4gm TP Q8H PRN Skin Irritation Hydromorphone HCl 0.25 mg 01/09/21 10:53 02/01/21 22:31 Hydromorphone 1 Mg/1 Ml Inj IV 0.25 mg Q6H PRN Administration Pain , Severe (7-10) Sodium Chloride 100 mls @ 999 mls/hr 01/27/21 18:37 Nacl 0.9% IV [place] PRN Hypotension Amino Acids/Electrolytes/Dextrose 2,016 mls @ 84 mls/hr 02/01/21 20:00 02/01/21 21:59 Tpn Adult IV 02/02/21 19:59 84 mls/hr DAILY@2000 THOMAS Administration Protocol Octreotide Acetate 50 mcg/ 51 mls @ 100 mls/hr 02/01/21 22:00 02/02/21 05:06 Sodium Chloride IV 100 mls/hr Q8H THOMAS Administration Insulin Glargine 5 units 01/18/21 22:00 02/01/21 22:21 Insulin Glargine 100 Units/Ml SUB-Q 5 units QHS THOMAS Administration Insulin Human Lispro 0 unit 01/03/21 12:00 02/02/21 06:33 Insulin Lispro 100 Unit/Ml SUB-Q Not Given Q6HR THOMAS Protocol Metoprolol Tartrate 5 mg 12/30/20 12:00 02/02/21 05:10 Metoprolol Tartrate 5 Mg/5 Ml Inj IV 5 mg Q4HR THMOAS Administration Ondansetron HCl 4 mg 01/25/21 11:56 02/01/21 22:35 Ondansetron 4 Mg/2 Ml Inj IV 4 mg Q4H PRN Administration Nausea And Vomiting Scopolamine 1 each 01/15/21 11:00 01/30/21 18:19 Scopolamine Transdermal Patch 72 Hr TD 1 each Q3D THOMAS Administration Sodium Chloride 10 ml 12/22/20 22:00 02/01/21 22:00 Sodium Chloride 0.9% 10 Ml Flush Syringe IV 10 ml BID THOMAS Administration Sodium Chloride 10 ml 12/22/20 19:42 01/29/21 02:08 Sodium Chloride 0.9% 10 Ml Flush Syringe IV 10 ml PRN PRN Administration LINE FLUSH
[2021-02-02] MEDS ORDERED: fentaNYL 100 MCG/2 ML INJ ONE (10:19)
[2021-02-02] MEDS ORDERED: MIDAZOLAM 2 MG/2 ML INJ ONE (10:19)
[2021-02-02] MEDS ORDERED: SODIUM CHLORIDE IRRI 500 ML 0 ML IR ONE (10:20)
[2021-02-02] MEDS ORDERED: LIDOCAINE (2%) 20 MG/1 ML VIAL 20 ML MDV INFILTRATI ONE (10:49)
[2021-02-02] MEDS ORDERED: HEPARIN/NS 5000 UNIT/500ML 0 ML IR ONE (10:49)
[2021-02-02] MEDS ORDERED: SODIUM CHLORIDE IRRI 500 ML 500 ML IR ONE (10:50)
--- NOTE | 2021-02-02 11:04 | Progress Note ---
<CJ REINA - Last Filed: 02/02/21 11:03> Assessment and Plan Paroxysmal atrial fibrillation currently, he is sinus rhythm on telemetry Patient is not a candidate for anticoagulation due to his postoperative status and the presence of severe anemia. Hx of nonischemic cardiomyopathy, resolving LVEF 50-55% by echo this presentation Small bowl obstruction status post multiple surgeries ESRD now on HD Anemia s/p PRBCs Patient remains on NPO status. Will continue intravenous digoxin, and intravenous metoprolol for paroxysmal atrial fibrillation. Otherwise, conservative cardiac management. Subjective Date of service: 02/02/21 Principal diagnosis: Ac hypoxemic resp failure; Severe Sepsis; Peritonitis; Acute SBO; ESRD; CHF Interval history: Patient is resting in bed and appears comfortable. Patient remains on NPO status but is planned for G-tube placement. Currently, he is stable sinus rhythm on telemetry. Objective Vital Signs Temp Pulse Resp BP BP Pulse Ox 02/02/21 07:58 98.9 F 66 18 141/78 100 02/02/21 05:05 66 150/72 02/02/21 05:04 66 150/72 02/02/21 04:33 98.9 F 66 18 150/72 97 02/02/21 00:28 99 F 72 18 145/75 95 02/01/21 22:50 96 02/01/21 22:25 74 153/74 02/01/21 22:00 74 153/79 02/01/21 19:09 100.2 F H 74 18 153/79 96 02/01/21 19:03 72 147/80 02/01/21 18:11 70 159/79 02/01/21 18:04 70 159/79 95 02/01/21 17:05 97 02/01/21 16:03 71 141/74 97 02/01/21 14:50 98.9 F 80 20 167/69 02/01/21 14:45 85 169/77 02/01/21 14:30 77 154/72 02/01/21 14:15 78 164/85 02/01/21 14:00 68 159/90 02/01/21 13:45 75 168/80 02/01/21 13:30 106 H 185/101 02/01/21 13:15 81 139/67 02/01/21 13:00 80 144/59 02/01/21 12:45 78 141/69 02/01/21 12:30 88 154/57 02/01/21 12:15 78 137/66 02/01/21 12:00 78 140/53 02/01/21 11:45 77 147/74 02/01/21 11:30 76 170/75 02/01/21 11:15 77 169/79 - Physical Examination General: No Apparent Distress HEENT: Positive: PERRL Neck: Positive: neck supple Cardiac: Positive: Reg Rate and Rhythm Lungs: Positive: Decreased Breath Sounds Neuro: Positive: Grossly Intact Abdomen: Positive: Other (post op) - Labs and Meds Comprehensive Metabolic Panel 02/02/21 Range/Units 03:25 Sodium 138 (137-145) mmol/L Potassium 3.3 L (3.6-5.0) mmol/L Chloride 98.9 (98-107) mmol/L Carbon Dioxide 29 (22-30) mmol/L BUN 38 H (9-20) mg/dL Creatinine 5.8 H (0.8-1.3) mg/dL Glucose 115 H (75-100) mg/dL Calcium 8.6 (8.4-10.2) mg/dL - Allied health notes Allied health notes reviewed: nursing <COLTON PONCE - Last Filed: 02/08/21 23:33> Assessment and Plan - Patient Problems (1) Atrial fibrillation Current Visit: Yes Status: Acute (2) Accelerated hypertension Current Visit: No Status: Acute Subjective Interval history: I SAW THIS PT & AGREE WITH THE Dx & Tx PLAN. Objective Vital Signs Temp Pulse Resp BP BP Pulse Ox 02/08/21 22:25 81 128/68 02/08/21 20:00 99.1 F 81 18 128/68 100 02/08/21 18:02 65 133/65 02/08/21 18:01 65 133/65 02/08/21 15:51 65 133/65 02/08/21 15:43 65 133/65 02/08/21 13:58 97.8 F 100 H 16 142/69 98 02/08/21 13:30 98.6 F 65 18 133/65 02/08/21 13:15 58 L 134/70 02/08/21 13:00 92 H 125/69 02/08/21 12:45 92 H 148/70 02/08/21 12:30 91 H 142/77 02/08/21 12:15 89 141/65 02/08/21 12:00 97 H 149/67 02/08/21 11:45 88 144/55 02/08/21 11:30 92 H 143/69 02/08/21 11:15 68 155/71 02/08/21 11:00 85 157/72 02/08/21 10:45 84 166/82 02/08/21 10:30 68 159/88 02/08/21 10:15 86 156/81 02/08/21 10:00 93 H 151/79 02/08/21 09:45 85 165/74 02/08/21 09:30 87 141/77 02/08/21 09:15 76 179/95 02/08/21 09:10 98.7 F 77 18 170/84 02/08/21 08:46 85 139/63 02/08/21 08:45 85 139/63 02/08/21 07:08 98.7 F 85 16 139/63 96 02/08/21 06:27 71 129/63 02/08/21 06:26 71 129/63 02/08/21 04:52 98.8 F 71 18 129/63 97 - Labs and Meds Comprehensive Metabolic Panel 02/08/21 Range/Units 06:45 Sodium 134 L (137-145) mmol/L Potassium 3.5 L (3.6-5.0) mmol/L Chloride 94.2 L (98-107) mmol/L Carbon Dioxide 25 (22-30) mmol/L BUN 78 H (9-20) mg/dL Creatinine 11.4 H (0.8-1.3) mg/dL Glucose 101 H (75-100) mg/dL Calcium 9.0 (8.4-10.2) mg/dL
--- NOTE | 2021-02-02 11:47 | Operative Report ---
Operative Report Operative Report: Exam: Ultrasound and fluoroscopic guided placement of gastrostomy tube Clinical indication: Patient with indwelling nasogastric tube, gastrostomy tube needed for venting Date: 02/02/2021 Procedure: Following an explanation of the risk, benefits and alternatives; written informed consent was obtained. The patient's CT of the abdomen was reviewed prior to this procedure and an appropriate window appeared to be present on the CT exam. I the patient was brought down to the [employer] and placed in supine position on the examination table. Ultrasound evaluation of the liver was performed to determine the liver margins. Fluoroscopic imaging demonstrated a decompressed stomach with a nasogastric tube in place. Patient's left upper abdomen was prepped and draped in the usual sterile fashion. The stomach was insufflated with air through the indwelling nasogastric tube. AT tach fastener was advanced towards the insufflated stomach in the mid body of the stomach on the anterior wall. Contrast was injected through the needle. This demonstrates prompt opacification of gastric rugae. The T tack fastener was deployed. A second T-Tac fastener was advanced into the stomach, positioning confirmed and deployed in a similar fashion as the first. Additional lidocaine was administered to the abdominal wall and along the path to the stomach. A 7 cm 18-gauge needle was then advanced into the gastric lumen. Contrast was again injected to document appropriate positioning. A 0.035 guidewire was advanced to the stomach, coiled in the fundus and advanced down to the body of the stomach. The needle was removed and a vertebral catheter advanced over the guidewire. The guidewire was exchanged for an Amplatz superstiff guidewire. And the vertebral catheter removed. Following serial dilation over the guidewire under fluoroscopy, a 12 [place] pigtail drainage catheter was advanced over the guidewire under fluoroscopy to position the pigtail in the fundus. The guidewire and trocar were removed. Contrast was injected which demonstrates appropriate positioning in the fundus. The contrast was then aspirated through the catheter and the catheter flushed with sterile saline. The catheter was securely fastened to the skin surface using 2-0 Ethilon suture and a sterile dressing applied. The catheter was then placed to dependent drainage. The patient tolerated the procedure well. There were no immediate postprocedure complications. Conscious sedation was performed under the guidance of radiologic nursing. Continuous cardiopulmonary monitoring is utilized. Impression: Ultrasound and fluoroscopic guided placement of a 12 [place] pigtail gastrostomy tube with the pigtail placed within the fundus. The stomach was insufflated multiple times throughout this procedure however, required multiple inflations secondary to scar tissue. The 12 [place] pigtail may be upsized to a 16-18 [place] pigtail within 2 weeks.
[2021-02-02] MEDS: HEPARIN 5,000 UNIT/1 ML VIAL SUB-Q SCH ×2 (12:14→21:46)
[2021-02-02] MEDS: SCOPOLAMINE TRANSDERMAL PATCH 72 HR TD SCH (12:15)
[2021-02-02] MEDS: FAMOTIDINE 20 MG/2 ML INJ IV SCH ×2 (12:19→21:40)
[2021-02-02] MEDS: DIGOXIN 0.5 MG/2 ML INJ IV SCH (12:20)
[2021-02-02] MEDS: MORPHINE 2 MG/1 ML INJ IV PRN ×2 (14:06→18:33)
[2021-02-02 14:41] LABS: Hepatitis B Surface Antigen Non-Reactive (Negative); Hepatitis C Virus Antibody Non-Reactive (NonReactive)
--- NOTE | 2021-02-02 16:41 | Progress Note ---
Assessment and Plan Severe Sepsis with shock Streptococcus bovis bacteremia/Prevotella bacteremia Gwendolyn albicans tracheal aspirate Small bowel obstruction/necrotic bowel s/p ex lap with extensive lysis of adhesions, 2 small bowel resections with primary anastomosis, right hemicolectomy, jejunal colonic anastomosis, segmental small bowel resection Postoperative ileus Atrial fibrillation with RVR Leukocytosis Hypochloremia Gwendolyn albicans in tracheal aspirate from 12/24 ESRD on PD, PermCath to be placed Transaminitis Systolic CHF(EF 35%) Crohn's disease Hypertension -[facility], surgery, infectious disease, nephrology, vascular surgery, cardiology consulted, appreciate recommendations -12/24 S/p ex lap with extensive expectations, 2 small bowel resections with primary anastomosis with surgery on 12/23 -s/p PICC and Permacath placement with vascular surgery on 12/27 -Extubated on 12/28, reintubated 12/31 for respiratory distress and extubated 01/08 -12/29 echocardiogram shows moderate concentric LVH, small pericardial effusion, transmitral Doppler flow pattern is grade 1 abnormal relaxation pattern, left- ventricular systolic function normal, LVEF 50 to 55%, no wall motion abnormalities. -01/01 CT abdomen/pelvis shows small pericardial effusion, mild coronary artery atherosclerotic calcification, small bilateral pleural effusions with associated volume loss, no convincing evidence of bowel obstruction or inflammation, postoperative changes from interval/recent midline laparotomy with a moderate amount of free fluid throughout the abdomen, small amount of dependent free air presumably postoperative -01/02 s/p ex lap, resection of perforated anastamosis, washout and abthera wound vac placement. -01/04 s/p ex lap with right hemicolectomy. -01/06 s/p exploratory laparotomy, Jejunal colonic anastomosis, Segmental small bowel resection. -s/p Vasopressor support with Levophed and vasopressin -Transitioned to HD from PD -HD per nephro, Epogen with HD -Strict NPO -cont TPN, Octreotide drip -s/p NGT to LIWS, plan for G-tube placement - s/p rectal tube -s/p IV antibiotics -Tobacco abuse cessation counseling -Trend CBC, BMP DVT/GI prophylaxis: PPI, heparin subcu, SCDs to bilateral lower extremities while in bed Brief Course: This is a 60 YO Male with ESRD on PD, GERD, Crohn's Disease, Nicotine Dependence, HTN, Systolic CHF(EF 35%) who presented to the emergency department on 12/22 with complaints of abdominal pain which began shortly after eating fast food rated 10/10 which is periumbilical, constant, associated with fever, nausea and multiple sites of vomiting and self-reported inability to undergo PD. In the emergency room patient underwent a CT scan of the abdomen/pelvis which revealed evidence of partial small bowel obstruction, symptoms were consistent with bacterial peritonitis. Patient was admitted to the hospital service with sepsis, peritonitis, and small bowel obstruction with consults to general surgery, nephrology, infectious disease and [facility]. Daily clinical course: 12/23. Patient had temperature 101.2 F, tachycardia and elevated lactic acid on admission. Meet sepsis criteria. Started on IV antibiotics. ID has been consulted. Surgery consulted this a.m.-advised laparoscopy. He remains on NG tube connected to suction. 12/24. Patient was noted to have peritonitis yesterday and patient undergoing exploratory laparotomy. Patient remained intubated after procedure and is in ICU. Now on broad-spectrum antibiotics. ID on board. 12/25. Remains mechanically ventilated and sedated. Temp 103 Fahrenheit. Antibiotics broadened-ID added fluconazole and Flagyl. Blood cultures ordered. Plan to repeat CT abdomen tomorrow if not better. Surgery following. 12/26: Patient remains on mechanical ventilation on CMV tidal line 550, rate of 14, PEEP of 8 and 30% FiO2 and sedated on fentanyl 4 micrograms. Today we will remove his Jeffery and [facility] dropped his rate controlled him on CPAP. We will trend CBC given recent drop in H/H. 12/27: Patient remains intubated on CMV tidal volume 550, rate 12, PEEP 8 on 30% FiO2 at the time my examination. Patient's TPN will be changed to PPN. Patient's fentanyl drip will be changed to IV push fentanyl and have a permacath placed today and midline. Patient was placed on a spontaneous breathing trial was switched back to CMV prior to procedure. 12/28: Patient on fentanyl but awake and follows commands. At the time of my ex amination he was on a CPAP trial and is scheduled to receive HD today. s/o permacath and PICC placement with vascular yesterday. His blood culture grew Prevotella and addition to Streptococcus bovis. This evening Dr. Spicer attempted to extubate the patient and his heart rate went to the 180s. Stat EKG obtained and cardiology consulted. 12/29: Patient was started on amiodarone IV for A. fib RVR yesterday and today he is more rate controlled into the 70s and 80s. Patient was extubated yesterday and is currently on Ventimask. Patient will be transferred to [facility]. Patient continues to be n.p.o. with TPN and NG tube to LIS. He is hypokalemic today which was repleted. 12/30; patient was on IV amiodarone for treatment with RVR, rate is controlled. Patient was off oxygen. patient is n.p.o. and on TPN. Surgery is following the patient. 12/31: Patient was intubated overnight for respiratory distress and this morning on examination he was on assist control tidal volume 450, rate 20, PEEP 6, 100% FiO2 and RT was getting a ABG to adjust vent settings. Patient had a acute bump in WBC and per ID recommendations we will obtain a CT abdomen/pelvis if leukocytosis persist. Patient is on TPN and sedated with Levophed. Patient is also on vasopressor support with Levophed. Per surgery his ileus is resolving however will maintain OGT to LIWS. 01/01: Patient was started on a vasopressin yesterday late evening. This morning patient is on 20 mcg of Levophed and 0.03 vasopressin and sedated on 20 mcg of propofol. Patient WBC increased today and he is hypokalemic. We will treat hyperkalemia. Patient had a CT chest and abdomen/pelvis pending. The time examination total of 450, rate 20, PEEP of 6 and 35 percent FiO2. Per RN, Dr Pollock has stated that the patient will be returning to the OR today for likely anastomosis seen on CT abdomen/pelvis. 01/02: Patient noted, WBC improving, but noted to have anemia, will transfuse additional unit of Blood and repeat H/H. continue supportive care. 01/03: Continue to wean pressors, ABX PER ID, patient to return to OR today for washout and possible closure, CONTINUE TPN /12: Continues to show some improvement. Today is POD#12 s/p ex lap with extensive lysis of adhesions and two small bowel resections with primary anastam osis for SBO with necrotic segment small bowel. POD#3 s/p ex lap, resection of perforated anastamosis, washout and abthera wound vac placement. POD#1 s/p ex lap with right hemicolectomy. Surgery planning to take back to the OR on Saturday with the hope to anastamos ileum to transverse colon and close abdomen. keep NGT to suction. Pt in deep sedation due to open abdomen. Per ID -Continue IV Zosyn, renally dosed for Strep bacteremia treatment till 01/06/2021 -On TPN 01/05: Patient continues on HD, anticipate return to OR tomorrow for closure and anastemosis. Continues with deep sedation due to open abdomen 01/06: Continue supportive care, monitor pressures and electrolytes. He is post op Exploratory laparotomy, 2. Jejunal colonic anastomosis,3. Segmental small bowel resection and anastemosis closure today. Continue wound vac 5: Continue supportive care, Today is POD#15 s/p ex lap with extensive lysis of adhesions and two small bowel resections with primary anastamosis for SBO with necrotic segment small bowel. POD#6 s/p ex lap, resection of perforated anastamosis, washout and abthera wound vac placement. POD#4 s/p ex lap with right hemicolectomy. POD #1 exploratory laparotomy, 2. Jejunal colonic anastomosis,3. Segmental small bowel resection. Continue to monitor and correct electrolytes. Patient remains on fentanyl and TPN with lipids. Still hypoactive bowel sounds. 516: Patient now extubated, asked when he can go home, Still lethargic. Continu e wound management, wound vac, Will need Rehab eval prior to discharge. 01/09: Patient remains on TPN, was started on labetalol drip per cardiology, patient had uncontrolled hypertension today however he cannot be given p.o. medications ileus resolves per surgery. Patient received hemodialysis today. NG tube remains to low intermittent suction. 01/10: Patient has some leukocytosis, slight hypokalemia and hyponatremia, metabolic acidosis. NG tube to LIWS, continue TPN. Patient will be downgraded to IMCU today. [facility] is working on placement. Will change frequency of hydralazine and discontinue labetalol drip. We will obtain a.m. BMP/mag/Phos and CBC. Infectious disease will like to start Zosyn if leukocytosis continues to worsen. 01/11: Patient leukocytosis has slightly improved potassium with in normal limits and other electrolytes are elevated but patient is scheduled for HD today. Remains on RA and A,A,Ox4. BP better controlled but remains elevated and we will increase clonidine dose. 01/12/2021; patient's blood pressure is better after dialysis and as needed IV medications and clonidine patch. Patient is followed by general surgery. Patient was alert and oriented and asked when he is going home. 01/13: Surgery is concerned about a leak at his anastamosis given increased output and will treat as controlled fistula and start an octreotide drip. And per surgery if he requires operative intervention will likely need to be left in discontinuity and eventual ileostomy as he has already failed two anastamoses. Patient still has tongue swelling and slurred speech. He is on Benadryl. 01/14: Patient's tongue swelling is improved, patient is alert and oriented, CAM ICU negative. Continue NG tube to low wall intermittent suction. Leukocytosis is improving. Hypomagnesemia resolved. Epogen with HD 01/15: Patient tongue swelling is much improved, bladder scan completed by bedside RN and he needed to be straight cathed. NGT output decreased. Leukocytosis improving. Patient has been having episodes of hypoglycemia during the day and he is on cyclic TPN, Lantus rescheduled to nightly and dosage decreased. 01/16: Continue management per ID and surgery. Will defer repeat CT of the abdomen to the team surgery has been approved by nephrology. Continue current diet and advance all to ice if okay with surgery discussed with nursing staff. 01/17: Discussed surgical recommendation of strict n.p.o. except for small amount of ice as patient has already failed to anastomosis. And risk for additional surgery with tissues were extremely friable from previous scar. He continues on octreotide drip to slow down GI output HARIS drain remains in place with NG suction for decompression. Patient verbalized understanding although stressed about being discharged. We will continue IMCU care unless otherwise advised by surgery. Prognosis remains guarded continue to monitor electrolytes considering GI output. 01/18: Continue supportive care, BP mildly elevated, continue to monitor, continue current therapy, if no return to PO soon may consider Increasing clonidine to 0.3, PO when ok with surgery. 01/19:Continue supportive care, Per ID continue IV Zosyn, plan to stop at 3 weeks from last surgery end date: 01/24/2021. Other management per surgery. Continue TPN. 01/20: Discussed with Surgery, will continue current management. Advised patient of the findings and plan. 01/21: Continue supportive care. Continue management per surgery advance diet when okay with surgery. Plan of care discussed with the patient in detail. 01/22: NG tube to be replaced explained to the patient why this is important. I agree with PT OT discussed with nursing staff very important to let the PT team know that they should manage HARIS drain while patient is ambulating so that he does not come out. Continue current management. Change in ocreotide to q8h and d/c drip NOTED 01/23: Continue supportive care, HD today, counselling provided to the patient on compliance with medical management 01/24: Replace NGT, Continue management per Surgery. POD 32. Mild hypokalemia noted, will replace. 01/25: Brief summary patient is a 60-year-old male admitted with abdominal pain and noted to have necrotic bowel concerning for PD associated peritonitis. Catheter was placed to convert to HD. Patient also underwent multiple surgical interventions. Initial cultures showed Streptococcus bovis bacteremia and Prevotella bacteremia a COLIN was without vegetations repeat blood cultures have been negative. Part of the surgery is included ex lap, resection of perforated anastomosis, washout and a better wound VAC placement on 01/01. While progress has remained slow if has indeed shown some improvement. Patient is agitated about being in the hospital but understands the care management been provided his vital to his health and to prevent further surgeries. The NG tube has been pulled out 2 days ago he vehemently refused the tube being placed back but after a day of nausea with associated vomiting he was accepting of the chest tube to put back. He continues on TPN. We will continue to monitor electrolytes and correct as needed. This a.m. and erroneous blood was obtained likely from the same line as TPN repeat was done which showed normalizing factors. Patient completed antibiotics on 01/25/2020 . 01/26 Patient with severe sepsis with septic shock, small bowel obstruction, necrotic bowel s/p multiple surgeries. He complains of abdominal pain. No fever currently. He asked me when is he going home and i explained that he is not yet stable for discharge 01/27 Patient with severe sepsis with septic shock, small bowel obstruction, nec rotic bowel s/p multiple surgeries. He complains of abdominal pain. No fever currently. Paroxysmal atrial fib managed by cardiology 01/28 Patient with severe sepsis with septic shock, small bowel obstruction, necrotic bowel s/p multiple surgeries. No fever currently. No abd pain currently. I discussed with Surgeon, Dr. Pollock. Continue current management. He also has paroxysmal afib, managed by Cardiology. 01/29 Patient with severe sepsis with septic shock, small bowel obstruction, necrotic bowel s/p multiple surgeries. No fever currently. No abd pain currently. I discussed with Surgeon, Dr. Pollock, yesterday. Continue current management. He also has paroxysmal afib, managed by Cardiology. He is on Metoprolol, Digoxin, Clonidine 01/30 Patient with severe sepsis with septic shock, small bowel obstruction, necrotic bowel s/p multiple surgeries. Patient is a 60-year-old male admitted with abdominal pain and noted to have necrotic bowel concerning for PD associated peritonitis. Catheter was placed to convert to HD. Patient also underwent multiple surgical interventions. Initial cultures showed Streptococcus bovis bacteremia and Prevotella bacteremia a COLIN was without vegetations repeat blood cultures have been negative. Part of the surgery is included ex lap, resection of perforated anastomosis, washout and a better wound VAC placement on 01/01. While progress has remained slow if has indeed shown some improvement. Patient is agitated about being in the hospital but understands the care management been provided his vital to his health and to prevent further surgeries. He continues on TPN. No fever currently. Less abdominal pain. I discussed with Surgeon, Dr. Pollock, few days ago. Continue current management. He also has paroxysmal afib, managed by Cardiology. He is on Metoprolol, Digoxin, Clonidine. ESRD on dialysis managed by Nephrology. 01/31: Continue HARIS drain suction. Ongoing treatment for anastomotic leak/controlled low output fistula. Maintain LIWS to NGT and monitor output. continue q 8h ocreotide. cont TPN. Defer to general surgery for NG tube di scontinuation. 02/01: planned for g-tube placement for gastric decompression. Removed NG tube today. S/p HD -tolerated well : Status post G-tube placement today, resume TPN, patient is off from rectal tube. Continue supportive care and follow general surgery recommendation for discharge planning. Hemodialysis per schedule Subjective Date of service: 02/02/21 Principal diagnosis: Ac hypoxemic resp failure; Severe Sepsis; Peritonitis; Acute SBO; ESRD; CHF Interval history: Patient seen and examined. Medical records and medication list reviewed. No acute event overnight noted by the RN. Patient denies any chest pain or difficulty breathing. Patient remains on TPN Patient is status post G tube placement today by IR Discussed plan of care at bedside with patient. Objective - Exam Narrative Exam: Gen:Not in acute distress, lying in bed HEENT:Normocephalic , Neck:supple, no JVD Lungs:Clear to auscultation bilat, no rales Heart:S1 and S2 reg, no murmurs, no rubs or gallop Abd: covered with dressing, HARIS drain, decreased bowel sounds, G-tube in place Ext: No edema, no clubbing, no cyanosis Neuro:Awake,alert,oriented X3, moves all extremities psych: Calm, co-operative - Constitutional Vitals: Vital Signs - 12hr 02/02/21 02/02/21 02/02/21 05:04 05:05 07:58 Temperature 98.9 F Pulse Rate 66 66 66 Respiratory 18 Rate Blood Pressure 150/72 150/72 141/78 O2 Sat by Pulse 100 Oximetry 02/02/21 02/02/21 02/02/21 12:11 12:13 12:14 Temperature Pulse Rate 71 71 71 Respiratory Rate Blood Pressure 186/90 186/90 186/90 O2 Sat by Pulse 97 Oximetry 02/02/21 02/02/21 02/02/21 12:20 15:56 16:16 Temperature 98.5 F Pulse Rate 65 67 67 Respiratory 18 Rate Blood Pressure 186/90 126/69 126/69 O2 Sat by Pulse 97 Oximetry - Labs CBC & Chem 7: 01/27/21 04:19 02/02/21 03:25 Labs: Abnormal lab results 02/01/21 02/02/21 02/02/21 Range/Units 22:05 03:25 06:16 Potassium 3.3 L (3.6-5.0) mmol/L BUN 38 H (9-20) mg/dL Creatinine 5.8 H (0.8-1.3) mg/dL Glucose 115 H (75-100) mg/dL POC Glucose 118 H 130 H (70-105) mg/dL Phosphorus 1.80 L (2.5-4.5) mg/dL Magnesium 1.60 L (1.7-2.3) mg/dL HEART Score - HEART Score Troponin: Troponin T 0.021 ng/mL (0.00-0.029) 12/22/20 14:38
--- NOTE | 2021-02-02 17:10 | Progress Note ---
Assessment and Plan POD#40 s/p ex lap with extensive lysis of adhesions and two small bowel resections with primary anastamosis for SBO with necrotic segment small bowel. POD#31 s/p ex lap, resection of perforated anastamosis, washout and abthera wound vac placement. POD#29 s/p ex lap with right hemicolectomy. POD#27 s/p ex lap, with jejunal-colonic anastamosis and closure of abdomen. Afebrile and stable. - concerned about a leak at his anastamosis. Clinically improved with decreased output that is becoming more serous. Blood supply was evaluated at time of last surgery with ICG and found to be adequate. Pt was on several days of steroids for tongue swelling which may have contributed to leak. Currently since he is stable and afebrile will treat like controlled fistua. He is extremely high risk for additional surgery with tissues that are extremely friable and previous scar tissue that makes his anatomy very difficult to manipulate. If he requires operative intervention will likely need to be left in discontinuity and eventual ileostomy as he has already failed two anastamoses. Continue HARIS drain suction. Will maintain LIWS to NGT and monitor output. HARIS drain must be secured and kept in place. Since HARIS drain has continued to decrease over the last several days, will maintain lower dose of octreotide. Will remove NGT tomorrow and use g-tube for gastric decompression. If g-tube output remains low will trial of sips of clears and monitor HARIS output. Subjective Date of service: 02/02/21 Narrative: Pt had successful placement of CT guided g-tube today. Pt has has had several loose stools overnight. Denies pain or nausea at this time. Objective Vital Signs - 12hr 02/02/21 02/02/21 02/02/21 07:58 12:11 12:13 Temperature 98.9 F Pulse Rate 66 71 71 Respiratory 18 Rate Blood Pressure 141/78 186/90 186/90 O2 Sat by Pulse 100 97 Oximetry 02/02/21 02/02/21 02/02/21 12:14 12:20 15:56 Temperature 98.5 F Pulse Rate 71 65 67 Respiratory 18 Rate Blood Pressure 186/90 186/90 126/69 O2 Sat by Pulse 97 Oximetry 02/02/21 16:16 Temperature Pulse Rate 67 Respiratory Rate Blood Pressure 126/69 O2 Sat by Pulse Oximetry - General physical appearance well developed, well nourished, no distress, no pain - Respiratory normal expansion, normal respiratory effort - Abdomen soft, not tender, other (HARIS drain with small amount brown fluid, NGT bilious, wound vac in place) - Labs 01/27/21 04:19 02/02/21 03:25 Diabetes panel 02/02/21 Range/Units 03:25 Sodium 138 (137-145) mmol/L Potassium 3.3 L (3.6-5.0) mmol/L Chloride 98.9 (98-107) mmol/L Carbon Dioxide 29 (22-30) mmol/L BUN 38 H (9-20) mg/dL Creatinine 5.8 H (0.8-1.3) mg/dL Glucose 115 H (75-100) mg/dL Calcium 8.6 (8.4-10.2) mg/dL Calcium panel 02/02/21 Range/Units 03:25 Calcium 8.6 (8.4-10.2) mg/dL Phosphorus 1.80 L (2.5-4.5) mg/dL Pituitary panel 02/02/21 Range/Units 03:25 Sodium 138 (137-145) mmol/L Potassium 3.3 L (3.6-5.0) mmol/L Chloride 98.9 (98-107) mmol/L Carbon Dioxide 29 (22-30) mmol/L BUN 38 H (9-20) mg/dL Creatinine 5.8 H (0.8-1.3) mg/dL Glucose 115 H (75-100) mg/dL Calcium 8.6 (8.4-10.2) mg/dL Adrenal panel 02/02/21 Range/Units 03:25 Sodium 138 (137-145) mmol/L Potassium 3.3 L (3.6-5.0) mmol/L Chloride 98.9 (98-107) mmol/L Carbon Dioxide 29 (22-30) mmol/L BUN 38 H (9-20) mg/dL Creatinine 5.8 H (0.8-1.3) mg/dL Glucose 115 H (75-100) mg/dL Calcium 8.6 (8.4-10.2) mg/dL
[2021-02-02] MEDS ORDERED: TOTAL PARENTERAL NUTRITION 2,016 ML IV SCH (20:00)
[2021-02-02] MEDS: ONDANSETRON 4 MG/2 ML INJ IV PRN (21:41)
[2021-02-02] MEDS: HYDROmorphone 1 MG/1 ML INJ IV PRN (21:41)
[2021-02-02] MEDS: INSULIN GLARGINE 100 UNITS/ML SUB-Q SCH (22:00)
[2021-02-03] MEDS: INSULIN LISPRO 100 UNIT/ML SUB-Q SCH ×4 (01:32→18:32)
[2021-02-03] MEDS: hydrALAZINE 20 MG/1 ML INJ IV SCH ×6 (03:07→22:00)
[2021-02-03] MEDS: METOPROLOL TARTRATE 5 MG/5 ML INJ IV SCH ×5 (03:08→22:00)
[2021-02-03] MEDS: HYDROmorphone 1 MG/1 ML INJ IV PRN (04:51)
[2021-02-03] MEDS: OCTREOTIDE 50 MCG in SODIUM CHLORIDE 0.9% 50 ML IV SCH ×3 (06:27→22:00)
--- NOTE | 2021-02-03 09:09 | Progress Note ---
Assessment and Plan Paroxysmal atrial fibrillation currently, he is sinus rhythm on telemetry Patient is not a candidate for anticoagulation due to his postoperative status and the presence of severe anemia. Hx of nonischemic cardiomyopathy, resolving LVEF 50-55% by echo this presentation Small bowl obstruction status post multiple surgeries ESRD now on HD Anemia s/p PRBCs Patient is status post gastrostomy tube. Will transition to oral digoxin, and oral metoprolol for paroxysmal atrial fibrillation. Patient is not a candidate for anticoagulation due to his postoperative status and the presence of severe anemia. Otherwise, conservative cardiac management. Subjective Date of service: 02/03/21 Principal diagnosis: Ac hypoxemic resp failure; Severe Sepsis; Peritonitis; Acute SBO; ESRD; CHF Interval history: Patient is resting in bed and appears comfortable. No cardiac complaints. Patient is 1 day post gastrostomy tube. Currently, he is stable sinus rhythm on telemetry. Objective Vital Signs Temp Pulse Resp BP BP Pulse Ox 02/03/21 07:47 98.1 F 67 20 130/65 94 02/03/21 06:49 64 124/61 02/03/21 04:34 98.6 F 64 18 124/61 100 02/03/21 03:08 63 129/62 02/03/21 03:07 63 129/62 02/03/21 03:02 98.9 F 63 18 129/62 97 02/02/21 23:24 98.3 F 64 18 114/64 97 02/02/21 21:56 64 136/70 02/02/21 21:48 64 136/70 02/02/21 20:00 98.4 F 64 18 136/70 98 02/02/21 18:33 65 121/68 02/02/21 16:16 67 126/69 02/02/21 15:56 98.5 F 67 18 126/69 97 02/02/21 12:20 65 186/90 02/02/21 12:14 71 186/90 02/02/21 12:13 71 186/90 02/02/21 12:11 71 [id number] 97 - Physical Examination General: No Apparent Distress HEENT: Positive: PERRL Neck: Positive: neck supple Cardiac: Positive: Reg Rate and Rhythm Lungs: Positive: Decreased Breath Sounds Neuro: Positive: Grossly Intact Abdomen: Positive: Other (post op) Extremities: Absent: edema - Allied health notes Allied health notes reviewed: nursing
[2021-02-03] MEDS ORDERED: MAGNESIUM SULFATE 2 GM/50 ML BAG IV SCH (10:00)
[2021-02-03] MEDS: HEPARIN 5,000 UNIT/1 ML VIAL SUB-Q SCH ×2 (10:56→22:00)
[2021-02-03] MEDS: FAMOTIDINE 20 MG/2 ML INJ IV SCH ×2 (10:57→22:00)
--- NOTE | 2021-02-03 13:24 | Progress Note ---
Assessment and Plan Acute hypoxemic respiratory failure, on mechanical ventilatory support. Severe Sepsis Peritonitis Acute small-bowel obstruction with tissue necrosis. End-stage renal disease, on dialysis. Hypertension. Crohn's disease. Gastroesophageal reflux disease. Heart failure with reduced ejection fraction. Hyperkalemia. Anemia that is normocytic. Lactic acidosis. Oropharyngeal dysphagia - no new issues, continue care as below; - continue incentive spirometry - J-P drain in situ - continue octreotide - follow clinically for S&S of infection re: fevers / WBC - continue total parenteral nutrition - continue wound care per RN/WCN - continue to wean supplemental oxygen for target O2 sat's > 92% acutely - aspiration precautions - continue bronchodilators with pulmonary hygiene per RT - wean per pulmonary driven protocols otherwise - HD/UF per nephrology prescription for toxin and volume control - avoid nephrotoxins, renally dose all medications - continue accuchecks with glycemic control per SSI for target blood glucose of <180 mg/dL; avoid hypoglycemia - continue to avoid benzodiazepine's, reduce the possibility of delirium - AB's per ID rec's - prn analgesia per pain score - Maintenance of sleep-wake cycle, avoid delirium - G.I. & VTE prophylaxis - PT/OT/ROM exercises - continue mobility protocols for pressure ulcer prophylaxis - Monitor hemodynamics closely - continue other care per attending / other consultants - discharge planning ongoing concurrently .... Re-evaluate in am & prn Subjective Date of service: 02/03/21 Principal diagnosis: Ac hypoxemic resp failure; Severe Sepsis; Peritonitis; Acute SBO; ESRD; CHF Interval history: Patient is seen today for: Ac hypoxemic resp failure; Severe Sepsis; Peritonitis; Acute SBO; ESRD on Dialysis; HTN; Crohn's disease; HFrEF Seen and examined at bedside; 24hour events reviewed; nursing and respiratory care staff consulted; no adverse overnight events reported to me; resting in bed; S/P PEG placement; resting peacefully in bed; denies chest pains or palpitations Objective Vital Signs - 12hr 02/03/21 02/03/21 02/03/21 03:02 03:07 03:08 Temperature 98.9 F Pulse Rate 63 63 63 Respiratory 18 Rate Blood Pressure 129/62 129/62 129/62 Blood Pressure [Right] O2 Sat by Pulse 97 Oximetry 02/03/21 02/03/21 02/03/21 04:34 06:49 07:47 Temperature 98.6 F 98.1 F Pulse Rate 64 64 67 Respiratory 18 20 Rate Blood Pressure 124/61 130/65 Blood Pressure 124/61 [Right] O2 Sat by Pulse 100 94 Oximetry Constitutional: no acute distress, alert, other (elderly male with normal respiratory effort at rest) Eyes: non-icteric ENT: oropharynx moist Neck: supple, no lymphadenopathy, no JVD Effort: normal Ascultation: Bilateral: clear Percussion: Bilateral: not dull Cardiovascular: regular rate and rhythm, other (S1,S2) Gastrointestinal: hypoactive bowel sounds, soft, non-tender, non-distended (protuberant), other (Midline abdominal incision; + HARIS drain in place) Integumentary: other (Midline abdominal incision ) Extremities: no cyanosis, no edema, pulses normal, no ischemia or petechiae Neurologic: non-focal exam (grossly), pupils equal and round, CN II-XII normal Psychiatric: mood appropriate, affect normal CBC and BMP: 01/27/21 04:19 02/04/21 09:37 ABG, PT/INR, D-dimer: ABG ABG pH 7.345 pH Units (7.350-7.450) L 01/07/21 17:14 POC ABG pCO2 41.4 mmHg (32.0-48.0) 01/07/21 03:07 ABG pCO2 40.3 mm Hg 01/07/21 17:14 POC ABG pO2 94.5 mmHg (83-108) 01/07/21 03:07 ABG pO2 67.4 mm Hg (80.0-90.0) L 01/07/21 17:14 POC ABG HCO3 22.7 01/07/21 03:07 ABG O2 Saturation 94.3 % (95.0-99.0) L 01/07/21 17:14 PT/INR, D-dimer PT 16.9 Sec. (12.2-14.9) H 01/01/21 12:45 INR 1.39 (0.87-1.13) H 01/01/21 12:45 Abnormal lab findings: Abnormal Labs 12/22/20 12/22/20 12/22/20 14:38 14:38 14:38 WBC RBC Hgb 11.2 L Hct 35.0 L MCV MCHC RDW 16.7 H Plt Count Lymph % (Auto) Loving % (Auto) Eos % (Auto) Lymph # (Auto) Loving # (Auto) Eos # (Auto) Seg Neutrophils % Seg Neuts % (Manual) 94.0 H Lymphocytes % (Manual) 5.0 L Monocytes % (Manual) Seg Neutrophils # Seg Neutrophils # Man Lymphocytes # (Manual) 0.3 L Monocytes # (Manual) PT INR ABG pH POC ABG pCO2 POC ABG pO2 ABG pO2 ABG HCO3 ABG O2 Saturation ABG Base Excess ABG Hemoglobin ABG Oxyhemoglobin ABG Sodium ABG Potassium ABG Chloride ABG Glucose Oxyhemoglobin Sodium Potassium Chloride Carbon Dioxide BUN 58 H Creatinine 13.2 H Glucose 113 H POC Glucose Lactic Acid 3.60 H* Calcium Phosphorus Magnesium Total Bilirubin 1.30 H AST ALT Alkaline Phosphatase 155 H Total Protein Albumin Triglycerides Arterial Blood Glucose Arterial Blood Ionized Calcium Digoxin Crossmatch 12/22/20 12/22/20 12/23/20 16:26 17:47 05:22 WBC RBC Hgb Hct MCV MCHC RDW Plt Count Lymph % (Auto) Loving % (Auto) Eos % (Auto) Lymph # (Auto) Loving # (Auto) Eos # (Auto) Seg Neutrophils % Seg Neuts % (Manual) Lymphocytes % (Manual) Monocytes % (Manual) Seg Neutrophils # Seg Neutrophils # Man Lymphocytes # (Manual) Monocytes # (Manual) PT INR ABG pH POC ABG pCO2 POC ABG pO2 ABG pO2 ABG HCO3 ABG O2 Saturation ABG Base Excess ABG Hemoglobin ABG Oxyhemoglobin ABG Sodium ABG Potassium ABG Chloride ABG Glucose Oxyhemoglobin Sodium Potassium Chloride Carbon Dioxide BUN Creatinine Glucose POC Glucose Lactic Acid 2.80 H* 3.10 H* 2.30 H* Calcium Phosphorus Magnesium Total Bilirubin AST ALT Alkaline Phosphatase Total Protein Albumin Triglycerides Arterial Blood Glucose Arterial Blood Ionized Calcium Digoxin Crossmatch 12/23/20 12/23/20 12/23/20 05:22 05:22 06:35 WBC 12.1 H RBC Hgb 11.0 L Hct 33.7 L MCV MCHC RDW 16.9 H Plt Count Lymph % (Auto) Loving % (Auto) Eos % (Auto) Lymph # (Auto) Loving # (Auto) Eos # (Auto) Seg Neutrophils % Seg Neuts % (Manual) 93.0 H Lymphocytes % (Manual) 1.0 L Monocytes % (Manual) Seg Neutrophils # Seg Neutrophils # Man 11.3 H Lymphocytes # (Manual) 0.1 L Monocytes # (Manual) PT INR ABG pH POC ABG pCO2 POC ABG pO2 ABG pO2 ABG HCO3 ABG O2 Saturation ABG Base Excess ABG Hemoglobin ABG Oxyhemoglobin ABG Sodium ABG Potassium ABG Chloride ABG Glucose Oxyhemoglobin Sodium Potassium 5.7 H D Chloride Carbon Dioxide BUN 73 H Creatinine 14.2 H Glucose POC Glucose Lactic Acid 2.30 H* Calcium 7.9 L Phosphorus Magnesium Total Bilirubin 1.40 H AST 119 H ALT 130 H Alkaline Phosphatase 183 H Total Protein 6.1 L Albumin 3.6 L Triglycerides Arterial Blood Glucose Arterial Blood Ionized Calcium Digoxin Crossmatch 12/23/20 12/23/20 12/23/20 11:40 13:53 16:47 WBC RBC Hgb 10.0 L Hct 30.4 L MCV MCHC RDW Plt Count Lymph % (Auto) Loving % (Auto) Eos % (Auto) Lymph # (Auto) Loving # (Auto) Eos # (Auto) Seg Neutrophils % Seg Neuts % (Manual) Lymphocytes % (Manual) Monocytes % (Manual) Seg Neutrophils # Seg Neutrophils # Man Lymphocytes # (Manual) Monocytes # (Manual) PT INR ABG pH POC ABG pCO2 POC ABG pO2 137.5 H ABG pO2 ABG HCO3 ABG O2 Saturation ABG Base Excess ABG Hemoglobin 9.7 L ABG Oxyhemoglobin ABG Sodium 134.1 L ABG Potassium 6.6 H ABG Chloride ABG Glucose 103 H Oxyhemoglobin Sodium Potassium Chloride Carbon Dioxide BUN Creatinine Glucose POC Glucose Lactic Acid Calcium Phosphorus Magnesium Total Bilirubin AST ALT Alkaline Phosphatase Total Protein Albumin Triglycerides Arterial Blood Glucose 103 H Arterial Blood Ionized Calcium 3.8 L Digoxin Crossmatch See Detail 12/23/20 12/23/20 12/24/20 20:35 20:40 01:20 WBC RBC Hgb Hct MCV MCHC RDW Plt Count Lymph % (Auto) Loving % (Auto) Eos % (Auto) Lymph # (Auto) Loving # (Auto) Eos # (Auto) Seg Neutrophils % Seg Neuts % (Manual) Lymphocytes % (Manual) Monocytes % (Manual) Seg Neutrophils # Seg Neutrophils # Man Lymphocytes # (Manual) Monocytes # (Manual) PT INR ABG pH 7.252 L POC ABG pCO2 POC ABG pO2 ABG pO2 50.1 L ABG HCO3 ABG O2 Saturation 81.1 L ABG Base Excess -5.9 L ABG Hemoglobin 12.1 L ABG Oxyhemoglobin ABG Sodium ABG Potassium ABG Chloride ABG Glucose Oxyhemoglobin 78.6 L Sodium 134 L Potassium 6.9 H* D 6.3 H* Chloride Carbon Dioxide 18 L 20 L BUN 87 H 91 H Creatinine 15.3 H 15.3 H Glucose 103 H POC Glucose Lactic Acid Calcium 6.9 L 7.5 L Phosphorus Magnesium Total Bilirubin AST ALT Alkaline Phosphatase Total Protein Albumin Triglycerides Arterial Blood Glucose Arterial Blood Ionized Calcium Digoxin Crossmatch 12/24/20 12/24/20 12/24/20 04:00 10:29 10:29 WBC RBC 3.49 L Hgb 10.5 L Hct 31.2 L MCV MCHC RDW 17.5 H Plt Count 124 L Lymph % (Auto) 3.7 L Loving % (Auto) 9.8 H Eos % (Auto) Lymph # (Auto) 0.2 L Loving # (Auto) Eos # (Auto) Seg Neutrophils % 85.9 H Seg Neuts % (Manual) Lymphocytes % (Manual) Monocytes % (Manual) Seg Neutrophils # Seg Neutrophils # Man Lymphocytes # (Manual) Monocytes # (Manual) PT INR ABG pH POC ABG pCO2 28.1 L POC ABG pO2 ABG pO2 ABG HCO3 ABG O2 Saturation ABG Base Excess ABG Hemoglobin ABG Oxyhemoglobin ABG Sodium 133.9 L ABG Potassium 5.3 H ABG Chloride 108.0 H ABG Glucose Oxyhemoglobin Sodium Potassium 5.6 H Chloride Carbon Dioxide 19 L BUN 99 H Creatinine 16.9 H Glucose 52 L POC Glucose Lactic Acid Calcium 7.6 L Phosphorus Magnesium Total Bilirubin 3.50 H AST 67 H ALT 71 H Alkaline Phosphatase Total Protein 3.5 L D Albumin 2.1 L Triglycerides Arterial Blood Glucose Arterial Blood Ionized Calcium 4.0 L Digoxin Crossmatch 12/25/20 12/25/20 12/25/20 03:33 04:00 04:00 WBC 3.8 L RBC 2.90 L Hgb 8.6 L Hct 25.7 L MCV MCHC RDW 16.7 H Plt Count 113 L Lymph % (Auto) Loving % (Auto) Eos % (Auto) Lymph # (Auto) Loving # (Auto) Eos # (Auto) Seg Neutrophils % Seg Neuts % (Manual) Lymphocytes % (Manual) Monocytes % (Manual) Seg Neutrophils # Seg Neutrophils # Man Lymphocytes # (Manual) Monocytes # (Manual) PT INR ABG pH 7.544 H POC ABG pCO2 28.2 L POC ABG pO2 62.8 L ABG pO2 ABG HCO3 ABG O2 Saturation ABG Base Excess ABG Hemoglobin 9.3 L ABG Oxyhemoglobin 93.0 L ABG Sodium 130.3 L ABG Potassium ABG Chloride ABG Glucose 97 H Oxyhemoglobin Sodium Potassium Chloride Carbon Dioxide BUN 62 H Creatinine 11.4 H Glucose POC Glucose Lactic Acid Calcium 7.7 L Phosphorus 5.00 H Magnesium Total Bilirubin AST ALT Alkaline Phosphatase Total Protein Albumin Triglycerides Arterial Blood Glucose 97 H Arterial Blood Ionized Calcium 3.9 L Digoxin Crossmatch 12/26/20 12/26/20 12/27/20 04:46 Unknown 03:40 WBC 4.1 L RBC 2.61 L Hgb 7.8 L Hct 23.4 L MCV MCHC RDW 17.1 H Plt Count 119 L Lymph % (Auto) 5.3 L Loving % (Auto) 10.6 H Eos % (Auto) Lymph # (Auto) 0.2 L Loving # (Auto) Eos # (Auto) Seg Neutrophils % 78.8 H Seg Neuts % (Manual) Lymphocytes % (Manual) Monocytes % (Manual) Seg Neutrophils # Seg Neutrophils # Man Lymphocytes # (Manual) Monocytes # (Manual) PT INR ABG pH 7.333 L 7.332 L POC ABG pCO2 POC ABG pO2 ABG pO2 ABG HCO3 26.9 H ABG O2 Saturation ABG Base Excess -2.4 L ABG Hemoglobin 6.8 L 7.2 L ABG Oxyhemoglobin ABG Sodium ABG Potassium ABG Chloride ABG Glucose Oxyhemoglobin 93.0 L 93.1 L Sodium Potassium Chloride Carbon Dioxide BUN Creatinine Glucose POC Glucose Lactic Acid Calcium Phosphorus Magnesium Total Bilirubin AST ALT Alkaline Phosphatase Total Protein Albumin Triglycerides Arterial Blood Glucose Arterial Blood Ionized Calcium Digoxin Crossmatch 12/27/20 12/27/20 12/27/20 06:40 06:40 11:22 WBC 4.4 L RBC 2.49 L Hgb 7.4 L Hct 22.4 L MCV MCHC RDW 17.1 H Plt Count 111 L Lymph % (Auto) 6.7 L Loving % (Auto) 12.6 H Eos % (Auto) Lymph # (Auto) 0.3 L Loving # (Auto) Eos # (Auto) Seg Neutrophils % 77.6 H Seg Neuts % (Manual) Lymphocytes % (Manual) Monocytes % (Manual) Seg Neutrophils # Seg Neutrophils # Man Lymphocytes # (Manual) Monocytes # (Manual) PT INR ABG pH POC ABG pCO2 POC ABG pO2 ABG pO2 ABG HCO3 ABG O2 Saturation ABG Base Excess ABG Hemoglobin ABG Oxyhemoglobin ABG Sodium ABG Potassium ABG Chloride ABG Glucose Oxyhemoglobin Sodium Potassium Chloride Carbon Dioxide BUN 64 H Creatinine 9.8 H Glucose 147 H POC Glucose 134 H Lactic Acid Calcium 8.3 L Phosphorus 5.00 H Magnesium Total Bilirubin 3.70 H AST 72 H ALT Alkaline Phosphatase 142 H Total Protein 5.1 L D Albumin 2.9 L Triglycerides Arterial Blood Glucose Arterial Blood Ionized Calcium Digoxin Crossmatch 12/27/20 12/27/20 12/28/20 17:29 23:31 03:09 WBC RBC Hgb Hct MCV MCHC RDW Plt Count Lymph % (Auto) Loving % (Auto) Eos % (Auto) Lymph # (Auto) Loving # (Auto) Eos # (Auto) Seg Neutrophils % Seg Neuts % (Manual) Lymphocytes % (Manual) Monocytes % (Manual) Seg Neutrophils # Seg Neutrophils # Man Lymphocytes # (Manual) Monocytes # (Manual) PT INR ABG pH 7.474 H POC ABG pCO2 POC ABG pO2 ABG pO2 ABG HCO3 ABG O2 Saturation ABG Base Excess ABG Hemoglobin 7.8 L ABG Oxyhemoglobin ABG Sodium ABG Potassium ABG Chloride ABG Glucose Oxyhemoglobin Sodium Potassium Chloride Carbon Dioxide BUN Creatinine Glucose POC Glucose 121 H 131 H Lactic Acid Calcium Phosphorus Magnesium Total Bilirubin AST ALT Alkaline Phosphatase Total Protein Albumin Triglycerides Arterial Blood Glucose Arterial Blood Ionized Calcium Digoxin Crossmatch 12/28/20 12/28/20 12/28/20 05:37 05:40 05:40 WBC 4.3 L RBC 2.40 L Hgb 7.2 L Hct 21.5 L MCV MCHC RDW 17.4 H Plt Count 112 L Lymph % (Auto) 6.5 L Loving % (Auto) 16.7 H Eos % (Auto) Lymph # (Auto) 0.3 L Loving # (Auto) Eos # (Auto) Seg Neutrophils % 71.1 H Seg Neuts % (Manual) Lymphocytes % (Manual) Monocytes % (Manual) Seg Neutrophils # Seg Neutrophils # Man Lymphocytes # (Manual) Monocytes # (Manual) PT INR ABG pH POC ABG pCO2 POC ABG pO2 ABG pO2 ABG HCO3 ABG O2 Saturation ABG Base Excess ABG Hemoglobin ABG Oxyhemoglobin ABG Sodium ABG Potassium ABG Chloride ABG Glucose Oxyhemoglobin Sodium Potassium Chloride Carbon Dioxide BUN 85 H Creatinine 11.5 H Glucose 132 H POC Glucose 121 H Lactic Acid Calcium 8.2 L Phosphorus Magnesium 2.40 H Total Bilirubin 3.80 H AST 70 H ALT Alkaline Phosphatase 176 H Total Protein 5.0 L Albumin 2.9 L Triglycerides Arterial Blood Glucose Arterial Blood Ionized Calcium Digoxin Crossmatch 12/28/20 12/28/20 12/28/20 11:34 15:00 17:35 WBC RBC Hgb Hct MCV MCHC RDW Plt Count Lymph % (Auto) Loving % (Auto) Eos % (Auto) Lymph # (Auto) Loving # (Auto) Eos # (Auto) Seg Neutrophils % Seg Neuts % (Manual) Lymphocytes % (Manual) Monocytes % (Manual) Seg Neutrophils # Seg Neutrophils # Man Lymphocytes # (Manual) Monocytes # (Manual) PT INR ABG pH 7.461 H POC ABG pCO2 POC ABG pO2 72.2 L ABG pO2 ABG HCO3 ABG O2 Saturation ABG Base Excess ABG Hemoglobin 8.2 L ABG Oxyhemoglobin 93.6 L ABG Sodium 134.1 L ABG Potassium 3.2 L ABG Chloride ABG Glucose 135 H Oxyhemoglobin Sodium Potassium Chloride Carbon Dioxide BUN Creatinine Glucose POC Glucose 137 H 144 H Lactic Acid Calcium Phosphorus Magnesium Total Bilirubin AST ALT Alkaline Phosphatase Total Protein Albumin Triglycerides Arterial Blood Glucose 135 H Arterial Blood Ionized Calcium 4.4 L Digoxin Crossmatch 12/28/20 12/28/20 12/29/20 19:44 Unknown 00:21 WBC RBC Hgb Hct MCV MCHC RDW Plt Count Lymph % (Auto) Loving % (Auto) Eos % (Auto) Lymph # (Auto) Loving # (Auto) Eos # (Auto) Seg Neutrophils % Seg Neuts % (Manual) Lymphocytes % (Manual) Monocytes % (Manual) Seg Neutrophils # Seg Neutrophils # Man Lymphocytes # (Manual) Monocytes # (Manual) PT INR ABG pH 7.474 H POC ABG pCO2 POC ABG pO2 ABG pO2 ABG HCO3 ABG O2 Saturation ABG Base Excess ABG Hemoglobin 7.8 L ABG Oxyhemoglobin ABG Sodium 133.2 L ABG Potassium ABG Chloride ABG Glucose 139 H Oxyhemoglobin Sodium 135 L Potassium Chloride 96.6 L Carbon Dioxide BUN 47 H Creatinine 7.4 H Glucose 130 H POC Glucose 142 H Lactic Acid Calcium 8.3 L Phosphorus Magnesium Total Bilirubin AST ALT Alkaline Phosphatase Total Protein Albumin Triglycerides Arterial Blood Glucose 139 H Arterial Blood Ionized Calcium 4.3 L Digoxin Crossmatch 12/29/20 12/29/20 12/29/20 05:16 05:16 05:26 WBC RBC 2.53 L Hgb 7.7 L Hct 22.8 L MCV MCHC RDW 17.0 H Plt Count 130 L Lymph % (Auto) Loving % (Auto) Eos % (Auto) Lymph # (Auto) Loving # (Auto) Eos # (Auto) Seg Neutrophils % Seg Neuts % (Manual) 79.0 H Lymphocytes % (Manual) 9.0 L Monocytes % (Manual) Seg Neutrophils # Seg Neutrophils # Man Lymphocytes # (Manual) 0.6 L Monocytes # (Manual) PT INR ABG pH POC ABG pCO2 POC ABG pO2 ABG pO2 ABG HCO3 ABG O2 Saturation ABG Base Excess ABG Hemoglobin ABG Oxyhemoglobin ABG Sodium ABG Potassium ABG Chloride ABG Glucose Oxyhemoglobin Sodium Potassium 3.4 L Chloride 96.6 L Carbon Dioxide BUN 59 H Creatinine 8.3 H Glucose 127 H POC Glucose 141 H Lactic Acid Calcium 8.2 L Phosphorus Magnesium Total Bilirubin 3.00 H AST 88 H ALT Alkaline Phosphatase 188 H Total Protein 5.1 L Albumin 2.8 L Triglycerides Arterial Blood Glucose Arterial Blood Ionized Calcium Digoxin Crossmatch 12/29/20 12/29/20 12/29/20 11:33 17:29 23:22 WBC RBC Hgb Hct MCV MCHC RDW Plt Count Lymph % (Auto) Loving % (Auto) Eos % (Auto) Lymph # (Auto) Loving # (Auto) Eos # (Auto) Seg Neutrophils % Seg Neuts % (Manual) Lymphocytes % (Manual) Monocytes % (Manual) Seg Neutrophils # Seg Neutrophils # Man Lymphocytes # (Manual) Monocytes # (Manual) PT INR ABG pH POC ABG pCO2 POC ABG pO2 ABG pO2 ABG HCO3 ABG O2 Saturation ABG Base Excess ABG Hemoglobin ABG Oxyhemoglobin ABG Sodium ABG Potassium ABG Chloride ABG Glucose Oxyhemoglobin Sodium Potassium Chloride Carbon Dioxide BUN Creatinine Glucose POC Glucose 144 H 130 H 117 H Lactic Acid Calcium Phosphorus Magnesium Total Bilirubin AST ALT Alkaline Phosphatase Total Protein Albumin Triglycerides Arterial Blood Glucose Arterial Blood Ionized Calcium Digoxin Crossmatch 12/30/20 12/30/20 12/30/20 05:23 08:15 09:00 WBC RBC Hgb Hct MCV MCHC RDW Plt Count Lymph % (Auto) Loving % (Auto) Eos % (Auto) Lymph # (Auto) Loving # (Auto) Eos # (Auto) Seg Neutrophils % Seg Neuts % (Manual) Lymphocytes % (Manual) Monocytes % (Manual) Seg Neutrophils # Seg Neutrophils # Man Lymphocytes # (Manual) Monocytes # (Manual) PT INR ABG pH POC ABG pCO2 POC ABG pO2 ABG pO2 ABG HCO3 ABG O2 Saturation ABG Base Excess ABG Hemoglobin ABG Oxyhemoglobin ABG Sodium ABG Potassium ABG Chloride ABG Glucose Oxyhemoglobin Sodium 135 L Potassium Chloride 95.9 L Carbon Dioxide BUN 85 H Creatinine 10.6 H Glucose 128 H POC Glucose 135 H 127 H Lactic Acid Calcium 8.3 L Phosphorus Magnesium Total Bilirubin 2.40 H AST 85 H ALT Alkaline Phosphatase 216 H Total Protein 5.3 L Albumin 2.6 L Triglycerides 155 H Arterial Blood Glucose Arterial Blood Ionized Calcium Digoxin Crossmatch 12/30/20 12/30/20 12/30/20 09:00 11:53 15:49 WBC RBC 2.61 L Hgb 7.8 L Hct 23.7 L MCV MCHC RDW 17.3 H Plt Count Lymph % (Auto) Loving % (Auto) Eos % (Auto) Lymph # (Auto) Loving # (Auto) Eos # (Auto) Seg Neutrophils % Seg Neuts % (Manual) Lymphocytes % (Manual) Monocytes % (Manual) Seg Neutrophils # Seg Neutrophils # Man Lymphocytes # (Manual) Monocytes # (Manual) PT INR ABG pH POC ABG pCO2 POC ABG pO2 ABG pO2 ABG HCO3 ABG O2 Saturation ABG Base Excess ABG Hemoglobin ABG Oxyhemoglobin ABG Sodium ABG Potassium ABG Chloride ABG Glucose Oxyhemoglobin Sodium Potassium Chloride Carbon Dioxide BUN Creatinine Glucose POC Glucose 155 H 146 H Lactic Acid Calcium Phosphorus Magnesium Total Bilirubin AST ALT Alkaline Phosphatase Total Protein Albumin Triglycerides Arterial Blood Glucose Arterial Blood Ionized Calcium Digoxin Crossmatch 12/30/20 12/30/20 12/31/20 17:53 23:45 03:56 WBC RBC Hgb Hct MCV MCHC RDW Plt Count Lymph % (Auto) Loving % (Auto) Eos % (Auto) Lymph # (Auto) Loving # (Auto) Eos # (Auto) Seg Neutrophils % Seg Neuts % (Manual) Lymphocytes % (Manual) Monocytes % (Manual) Seg Neutrophils # Seg Neutrophils # Man Lymphocytes # (Manual) Monocytes # (Manual) PT INR ABG pH POC ABG pCO2 POC ABG pO2 49.4 L ABG pO2 ABG HCO3 ABG O2 Saturation ABG Base Excess ABG Hemoglobin 10.3 L ABG Oxyhemoglobin 84.2 L ABG Sodium 133.1 L ABG Potassium ABG Chloride ABG Glucose 173 H Oxyhemoglobin Sodium Potassium Chloride Carbon Dioxide BUN Creatinine Glucose POC Glucose 139 H 173 H Lactic Acid Calcium Phosphorus Magnesium Total Bilirubin AST ALT Alkaline Phosphatase Total Protein Albumin Triglycerides Arterial Blood Glucose 173 H Arterial Blood Ionized Calcium Digoxin Crossmatch 12/31/20 12/31/20 12/31/20 05:07 06:51 06:51 WBC 20.3 H RBC 3.32 L Hgb 9.8 L Hct 30.3 L D MCV MCHC RDW 17.3 H Plt Count Lymph % (Auto) Loving % (Auto) Eos % (Auto) Lymph # (Auto) Loving # (Auto) Eos # (Auto) Seg Neutrophils % Seg Neuts % (Manual) 87.0 H Lymphocytes % (Manual) 10.0 L Monocytes % (Manual) Seg Neutrophils # Seg Neutrophils # Man 17.7 H Lymphocytes # (Manual) Monocytes # (Manual) PT INR ABG pH POC ABG pCO2 POC ABG pO2 ABG pO2 ABG HCO3 ABG O2 Saturation ABG Base Excess ABG Hemoglobin ABG Oxyhemoglobin ABG Sodium ABG Potassium ABG Chloride ABG Glucose Oxyhemoglobin Sodium Potassium 5.2 H D Chloride Carbon Dioxide BUN 62 H Creatinine 8.4 H Glucose 116 H POC Glucose 120 H Lactic Acid Calcium Phosphorus Magnesium 1.60 L Total Bilirubin AST ALT Alkaline Phosphatase Total Protein Albumin Triglycerides Arterial Blood Glucose Arterial Blood Ionized Calcium Digoxin Crossmatch 12/31/20 12/31/20 12/31/20 09:38 12:19 12:22 WBC RBC Hgb Hct MCV MCHC RDW Plt Count Lymph % (Auto) Loving % (Auto) Eos % (Auto) Lymph # (Auto) Loving # (Auto) Eos # (Auto) Seg Neutrophils % Seg Neuts % (Manual) Lymphocytes % (Manual) Monocytes % (Manual) Seg Neutrophils # Seg Neutrophils # Man Lymphocytes # (Manual) Monocytes # (Manual) PT INR ABG pH POC ABG pCO2 POC ABG pO2 ABG pO2 354.0 H ABG HCO3 ABG O2 Saturation 99.6 H ABG Base Excess ABG Hemoglobin 9.1 L ABG Oxyhemoglobin ABG Sodium ABG Potassium ABG Chloride ABG Glucose Oxyhemoglobin Sodium Potassium 5.2 H Chloride Carbon Dioxide BUN Creatinine Glucose POC Glucose 132 H Lactic Acid Calcium Phosphorus Magnesium Total Bilirubin AST ALT Alkaline Phosphatase Total Protein Albumin Triglycerides Arterial Blood Glucose Arterial Blood Ionized Calcium Digoxin Crossmatch 12/31/20 01/01/21 01/01/21 23:23 03:03 05:04 WBC RBC Hgb Hct MCV MCHC RDW Plt Count Lymph % (Auto) Loving % (Auto) Eos % (Auto) Lymph # (Auto) Loving # (Auto) Eos # (Auto) Seg Neutrophils % Seg Neuts % (Manual) Lymphocytes % (Manual) Monocytes % (Manual) Seg Neutrophils # Seg Neutrophils # Man Lymphocytes # (Manual) Monocytes # (Manual) PT INR ABG pH POC ABG pCO2 POC ABG pO2 79.6 L ABG pO2 ABG HCO3 ABG O2 Saturation ABG Base Excess ABG Hemoglobin 9.2 L ABG Oxyhemoglobin ABG Sodium 131.6 L ABG Potassium 5.8 H ABG Chloride ABG Glucose 177 H Oxyhemoglobin Sodium Potassium Chloride Carbon Dioxide BUN Creatinine Glucose POC Glucose 174 H 167 H Lactic Acid Calcium Phosphorus Magnesium Total Bilirubin AST ALT Alkaline Phosphatase Total Protein Albumin Triglycerides Arterial Blood Glucose 177 H Arterial Blood Ionized Calcium Digoxin Crossmatch 01/01/21 01/01/21 01/01/21 07:31 07:31 11:31 WBC 26.1 H RBC 2.95 L Hgb 8.6 L Hct 27.1 L MCV MCHC RDW 18.2 H Plt Count Lymph % (Auto) Loving % (Auto) Eos % (Auto) Lymph # (Auto) Loving # (Auto) Eos # (Auto) Seg Neutrophils % Seg Neuts % (Manual) 96.0 H Lymphocytes % (Manual) 4.0 L Monocytes % (Manual) Seg Neutrophils # Seg Neutrophils # Man 25.1 H Lymphocytes # (Manual) 1.0 L Monocytes # (Manual) PT INR ABG pH POC ABG pCO2 POC ABG pO2 ABG pO2 ABG HCO3 ABG O2 Saturation ABG Base Excess ABG Hemoglobin ABG Oxyhemoglobin ABG Sodium ABG Potassium ABG Chloride ABG Glucose Oxyhemoglobin Sodium Potassium 6.0 H Chloride Carbon Dioxide 21 L BUN 89 H Creatinine 10.5 H Glucose 179 H POC Glucose Lactic Acid Calcium Phosphorus Magnesium Total Bilirubin AST ALT Alkaline Phosphatase Total Protein Albumin Triglycerides Arterial Blood Glucose Arterial Blood Ionized Calcium Digoxin Crossmatch See Detail 01/01/21 01/01/21 01/01/21 11:51 12:45 16:52 WBC RBC Hgb Hct MCV MCHC RDW Plt Count Lymph % (Auto) Loving % (Auto) Eos % (Auto) Lymph # (Auto) Loving # (Auto) Eos # (Auto) Seg Neutrophils % Seg Neuts % (Manual) Lymphocytes % (Manual) Monocytes % (Manual) Seg Neutrophils # Seg Neutrophils # Man Lymphocytes # (Manual) Monocytes # (Manual) PT 16.9 H INR 1.39 H ABG pH POC ABG pCO2 POC ABG pO2 ABG pO2 ABG HCO3 ABG O2 Saturation ABG Base Excess ABG Hemoglobin ABG Oxyhemoglobin ABG Sodium ABG Potassium ABG Chloride ABG Glucose Oxyhemoglobin Sodium Potassium Chloride Carbon Dioxide BUN Creatinine Glucose POC Glucose 157 H 177 H Lactic Acid Calcium Phosphorus Magnesium Total Bilirubin AST ALT Alkaline Phosphatase Total Protein Albumin Triglycerides Arterial Blood Glucose Arterial Blood Ionized Calcium Digoxin Crossmatch 01/01/21 01/01/21 01/01/21 17:58 17:58 20:12 WBC 26.9 H RBC 3.14 L Hgb 9.3 L Hct 29.6 L MCV MCHC RDW 17.5 H Plt Count Lymph % (Auto) Loving % (Auto) Eos % (Auto) Lymph # (Auto) Loving # (Auto) Eos # (Auto) Seg Neutrophils % Seg Neuts % (Manual) 84.0 H Lymphocytes % (Manual) 4.0 L Monocytes % (Manual) 12.0 H Seg Neutrophils # Seg Neutrophils # Man 22.6 H Lymphocytes # (Manual) 1.1 L Monocytes # (Manual) 3.2 H PT INR ABG pH POC ABG pCO2 POC ABG pO2 ABG pO2 ABG HCO3 ABG O2 Saturation ABG Base Excess ABG Hemoglobin ABG Oxyhemoglobin ABG Sodium ABG Potassium ABG Chloride ABG Glucose Oxyhemoglobin Sodium 136 L Potassium 6.2 H* Chloride Carbon Dioxide 21 L BUN 92 H Creatinine 10.8 H Glucose 171 H POC Glucose 288 H Lactic Acid Calcium Phosphorus Magnesium Total Bilirubin 2.10 H AST 223 H ALT 100 H Alkaline Phosphatase 206 H Total Protein 4.8 L Albumin 1.9 L Triglycerides Arterial Blood Glucose Arterial Blood Ionized Calcium Digoxin Crossmatch 01/02/21 01/02/21 01/02/21 00:12 00:45 03:05 WBC RBC Hgb Hct MCV MCHC RDW Plt Count Lymph % (Auto) Loving % (Auto) Eos % (Auto) Lymph # (Auto) Loving # (Auto) Eos # (Auto) Seg Neutrophils % Seg Neuts % (Manual) Lymphocytes % (Manual) Monocytes % (Manual) Seg Neutrophils # Seg Neutrophils # Man Lymphocytes # (Manual) Monocytes # (Manual) PT INR ABG pH POC ABG pCO2 POC ABG pO2 81.8 L ABG pO2 ABG HCO3 ABG O2 Saturation ABG Base Excess ABG Hemoglobin 8.0 L ABG Oxyhemoglobin ABG Sodium 129.8 L ABG Potassium 5.4 H ABG Chloride ABG Glucose 257 H Oxyhemoglobin Sodium 136 L Potassium 5.8 H Chloride 96.6 L Carbon Dioxide BUN 95 H Creatinine 11.2 H Glucose 238 H POC Glucose 223 H Lactic Acid Calcium Phosphorus Magnesium Total Bilirubin AST ALT Alkaline Phosphatase Total Protein Albumin Triglycerides Arterial Blood Glucose 257 H Arterial Blood Ionized Calcium 4.0 L Digoxin Crossmatch 01/02/21 01/02/21 01/02/21 06:25 08:00 08:00 WBC 17.5 H RBC 2.31 L Hgb 6.7 L Hct 22.1 L D MCV 96 H MCHC 30 L RDW 18.4 H Plt Count Lymph % (Auto) Loving % (Auto) Eos % (Auto) Lymph # (Auto) Loving # (Auto) Eos # (Auto) Seg Neutrophils % Seg Neuts % (Manual) Lymphocytes % (Manual) Monocytes % (Manual) Seg Neutrophils # Seg Neutrophils # Man Lymphocytes # (Manual) Monocytes # (Manual) PT INR ABG pH POC ABG pCO2 POC ABG pO2 ABG pO2 ABG HCO3 ABG O2 Saturation ABG Base Excess ABG Hemoglobin ABG Oxyhemoglobin ABG Sodium ABG Potassium ABG Chloride ABG Glucose Oxyhemoglobin Sodium 134 L Potassium 5.3 H Chloride 92.9 L Carbon Dioxide BUN 101 H Creatinine 10.9 H Glucose 560 H* POC Glucose 239 H Lactic Acid Calcium 7.6 L Phosphorus 6.50 H Magnesium Total Bilirubin AST ALT Alkaline Phosphatase Total Protein Albumin Triglycerides Arterial Blood Glucose Arterial Blood Ionized Calcium Digoxin Crossmatch 01/02/21 01/02/21 01/02/21 11:26 15:00 17:57 WBC RBC Hgb Hct MCV MCHC RDW Plt Count Lymph % (Auto) Loving % (Auto) Eos % (Auto) Lymph # (Auto) Loving # (Auto) Eos # (Auto) Seg Neutrophils % Seg Neuts % (Manual) Lymphocytes % (Manual) Monocytes % (Manual) Seg Neutrophils # Seg Neutrophils # Man Lymphocytes # (Manual) Monocytes # (Manual) PT INR ABG pH POC ABG pCO2 POC ABG pO2 ABG pO2 ABG HCO3 ABG O2 Saturation ABG Base Excess ABG Hemoglobin ABG Oxyhemoglobin ABG Sodium ABG Potassium ABG Chloride ABG Glucose Oxyhemoglobin Sodium Potassium Chloride Carbon Dioxide BUN Creatinine Glucose 241 H POC Glucose 205 H 272 H Lactic Acid Calcium Phosphorus Magnesium Total Bilirubin AST ALT Alkaline Phosphatase Total Protein Albumin Triglycerides Arterial Blood Glucose Arterial Blood Ionized Calcium Digoxin Crossmatch 01/02/21 01/02/21 01/03/21 23:25 23:43 03:45 WBC RBC Hgb Hct MCV MCHC RDW Plt Count Lymph % (Auto) Loving % (Auto) Eos % (Auto) Lymph # (Auto) Loving # (Auto) Eos # (Auto) Seg Neutrophils % Seg Neuts % (Manual) Lymphocytes % (Manual) Monocytes % (Manual) Seg Neutrophils # Seg Neutrophils # Man Lymphocytes # (Manual) Monocytes # (Manual) PT INR ABG pH POC ABG pCO2 48.3 H POC ABG pO2 134.4 H 79.7 L ABG pO2 ABG HCO3 ABG O2 Saturation ABG Base Excess ABG Hemoglobin 7.7 L 8.6 L ABG Oxyhemoglobin ABG Sodium 131.8 L 130.4 L ABG Potassium ABG Chloride 97.0 L ABG Glucose 218 H 238 H Oxyhemoglobin Sodium Potassium Chloride Carbon Dioxide BUN Creatinine Glucose POC Glucose 218 H Lactic Acid Calcium Phosphorus Magnesium Total Bilirubin AST ALT Alkaline Phosphatase Total Protein Albumin Triglycerides Arterial Blood Glucose 218 H 238 H Arterial Blood Ionized Calcium 4.1 L 4.0 L Digoxin Crossmatch 01/03/21 01/03/21 01/03/21 04:37 04:37 05:39 WBC 15.2 H RBC 2.38 L Hgb 7.3 L Hct 21.6 L MCV MCHC RDW 16.6 H Plt Count Lymph % (Auto) Loving % (Auto) Eos % (Auto) Lymph # (Auto) Loving # (Auto) Eos # (Auto) Seg Neutrophils % Seg Neuts % (Manual) Lymphocytes % (Manual) Monocytes % (Manual) Seg Neutrophils # Seg Neutrophils # Man Lymphocytes # (Manual) Monocytes # (Manual) PT INR ABG pH POC ABG pCO2 POC ABG pO2 ABG pO2 ABG HCO3 ABG O2 Saturation ABG Base Excess ABG Hemoglobin ABG Oxyhemoglobin ABG Sodium ABG Potassium ABG Chloride ABG Glucose Oxyhemoglobin Sodium 136 L Potassium Chloride 94.5 L Carbon Dioxide BUN 69 H Creatinine 8.0 H Glucose 219 H POC Glucose 222 H Lactic Acid Calcium 7.8 L Phosphorus 4.80 H D Magnesium Total Bilirubin AST ALT Alkaline Phosphatase Total Protein Albumin Triglycerides Arterial Blood Glucose Arterial Blood Ionized Calcium Digoxin Crossmatch 01/03/21 01/03/21 01/03/21 11:29 18:49 23:37 WBC RBC Hgb Hct MCV MCHC RDW Plt Count Lymph % (Auto) Loving % (Auto) Eos % (Auto) Lymph # (Auto) Loving # (Auto) Eos # (Auto) Seg Neutrophils % Seg Neuts % (Manual) Lymphocytes % (Manual) Monocytes % (Manual) Seg Neutrophils # Seg Neutrophils # Man Lymphocytes # (Manual) Monocytes # (Manual) PT INR ABG pH POC ABG pCO2 POC ABG pO2 ABG pO2 ABG HCO3 ABG O2 Saturation ABG Base Excess ABG Hemoglobin ABG Oxyhemoglobin ABG Sodium ABG Potassium ABG Chloride ABG Glucose Oxyhemoglobin Sodium Potassium Chloride Carbon Dioxide BUN Creatinine Glucose POC Glucose 232 H 129 H 140 H Lactic Acid Calcium Phosphorus Magnesium Total Bilirubin AST ALT Alkaline Phosphatase Total Protein Albumin Triglycerides Arterial Blood Glucose Arterial Blood Ionized Calcium Digoxin Crossmatch 01/04/21 01/04/21 01/04/21 03:22 04:38 04:38 WBC 11.1 H RBC 2.89 L Hgb 8.9 L Hct 26.2 L MCV MCHC RDW 16.1 H Plt Count Lymph % (Auto) Loving % (Auto) Eos % (Auto) Lymph # (Auto) Loving # (Auto) Eos # (Auto) Seg Neutrophils % Seg Neuts % (Manual) Lymphocytes % (Manual) Monocytes % (Manual) Seg Neutrophils # Seg Neutrophils # Man Lymphocytes # (Manual) Monocytes # (Manual) PT INR ABG pH POC ABG pCO2 POC ABG pO2 82.3 L ABG pO2 ABG HCO3 ABG O2 Saturation ABG Base Excess ABG Hemoglobin 8.9 L ABG Oxyhemoglobin ABG Sodium 130.5 L ABG Potassium ABG Chloride ABG Glucose 124 H Oxyhemoglobin Sodium Potassium Chloride 95.5 L Carbon Dioxide BUN 87 H Creatinine 9.7 H Glucose 118 H POC Glucose Lactic Acid Calcium 7.7 L Phosphorus Magnesium Total Bilirubin AST ALT Alkaline Phosphatase Total Protein Albumin Triglycerides Arterial Blood Glucose 124 H Arterial Blood Ionized Calcium 3.5 L Digoxin Crossmatch 01/04/21 01/04/21 01/04/21 05:39 12:04 18:04 WBC RBC Hgb Hct MCV MCHC RDW Plt Count Lymph % (Auto) Loving % (Auto) Eos % (Auto) Lymph # (Auto) Loving # (Auto) Eos # (Auto) Seg Neutrophils % Seg Neuts % (Manual) Lymphocytes % (Manual) Monocytes % (Manual) Seg Neutrophils # Seg Neutrophils # Man Lymphocytes # (Manual) Monocytes # (Manual) PT INR ABG pH POC ABG pCO2 POC ABG pO2 ABG pO2 ABG HCO3 ABG O2 Saturation ABG Base Excess ABG Hemoglobin ABG Oxyhemoglobin ABG Sodium ABG Potassium ABG Chloride ABG Glucose Oxyhemoglobin Sodium Potassium Chloride Carbon Dioxide BUN Creatinine Glucose POC Glucose 134 H 125 H 131 H Lactic Acid Calcium Phosphorus Magnesium Total Bilirubin AST ALT Alkaline Phosphatase Total Protein Albumin Triglycerides Arterial Blood Glucose Arterial Blood Ionized Calcium Digoxin Crossmatch 01/04/21 01/05/21 01/05/21 23:41 03:23 04:49 WBC RBC Hgb Hct MCV MCHC RDW Plt Count Lymph % (Auto) Loving % (Auto) Eos % (Auto) Lymph # (Auto) Loving # (Auto) Eos # (Auto) Seg Neutrophils % Seg Neuts % (Manual) Lymphocytes % (Manual) Monocytes % (Manual) Seg Neutrophils # Seg Neutrophils # Man Lymphocytes # (Manual) Monocytes # (Manual) PT INR ABG pH POC ABG pCO2 POC ABG pO2 62.8 L ABG pO2 ABG HCO3 ABG O2 Saturation ABG Base Excess ABG Hemoglobin 9.5 L ABG Oxyhemoglobin 92.0 L ABG Sodium 130.1 L ABG Potassium ABG Chloride ABG Glucose 148 H Oxyhemoglobin Sodium Potassium Chloride 96.9 L Carbon Dioxide BUN 57 H Creatinine 6.7 H Glucose 135 H POC Glucose 132 H Lactic Acid Calcium 8.0 L Phosphorus Magnesium Total Bilirubin AST ALT Alkaline Phosphatase Total Protein Albumin Triglycerides Arterial Blood Glucose 148 H Arterial Blood Ionized Calcium 4.1 L Digoxin Crossmatch 01/05/21 01/05/21 01/05/21 05:04 11:48 12:39 WBC RBC 3.03 L Hgb 9.3 L Hct 27.6 L MCV MCHC RDW 16.5 H Plt Count Lymph % (Auto) Loving % (Auto) Eos % (Auto) Lymph # (Auto) Loving # (Auto) Eos # (Auto) Seg Neutrophils % Seg Neuts % (Manual) Lymphocytes % (Manual) Monocytes % (Manual) Seg Neutrophils # Seg Neutrophils # Man Lymphocytes # (Manual) Monocytes # (Manual) PT INR ABG pH POC ABG pCO2 POC ABG pO2 ABG pO2 ABG HCO3 ABG O2 Saturation ABG Base Excess ABG Hemoglobin ABG Oxyhemoglobin ABG Sodium ABG Potassium ABG Chloride ABG Glucose Oxyhemoglobin Sodium Potassium Chloride Carbon Dioxide BUN Creatinine Glucose POC Glucose 147 H 162 H Lactic Acid Calcium Phosphorus Magnesium Total Bilirubin AST ALT Alkaline Phosphatase Total Protein Albumin Triglycerides Arterial Blood Glucose Arterial Blood Ionized Calcium Digoxin Crossmatch 01/05/21 01/05/21 01/06/21 17:50 23:32 04:15 WBC RBC Hgb Hct MCV MCHC RDW Plt Count Lymph % (Auto) Loving % (Auto) Eos % (Auto) Lymph # (Auto) Loving # (Auto) Eos # (Auto) Seg Neutrophils % Seg Neuts % (Manual) Lymphocytes % (Manual) Monocytes % (Manual) Seg Neutrophils # Seg Neutrophils # Man Lymphocytes # (Manual) Monocytes # (Manual) PT INR ABG pH POC ABG pCO2 POC ABG pO2 ABG pO2 191.0 H ABG HCO3 ABG O2 Saturation 99.2 H ABG Base Excess ABG Hemoglobin 9.0 L ABG Oxyhemoglobin ABG Sodium ABG Potassium ABG Chloride ABG Glucose Oxyhemoglobin Sodium Potassium Chloride Carbon Dioxide BUN Creatinine Glucose POC Glucose 155 H 115 H Lactic Acid Calcium Phosphorus Magnesium Total Bilirubin AST ALT Alkaline Phosphatase Total Protein Albumin Triglycerides Arterial Blood Glucose Arterial Blood Ionized Calcium Digoxin Crossmatch 01/06/21 01/06/21 01/06/21 04:45 05:56 07:03 WBC RBC 2.95 L Hgb 9.1 L Hct 26.8 L MCV MCHC RDW 16.8 H Plt Count Lymph % (Auto) Loving % (Auto) Eos % (Auto) Lymph # (Auto) Loving # (Auto) Eos # (Auto) Seg Neutrophils % Seg Neuts % (Manual) Lymphocytes % (Manual) Monocytes % (Manual) Seg Neutrophils # Seg Neutrophils # Man Lymphocytes # (Manual) Monocytes # (Manual) PT INR ABG pH POC ABG pCO2 POC ABG pO2 ABG pO2 ABG HCO3 ABG O2 Saturation ABG Base Excess ABG Hemoglobin ABG Oxyhemoglobin ABG Sodium ABG Potassium ABG Chloride ABG Glucose Oxyhemoglobin Sodium 135 L Potassium Chloride 95.9 L Carbon Dioxide BUN 82 H Creatinine 8.7 H Glucose 127 H POC Glucose 136 H Lactic Acid Calcium 8.3 L Phosphorus Magnesium Total Bilirubin AST ALT Alkaline Phosphatase Total Protein Albumin Triglycerides Arterial Blood Glucose Arterial Blood Ionized Calcium Digoxin Crossmatch 01/06/21 01/06/21 01/06/21 07:10 11:04 13:38 WBC RBC Hgb Hct MCV MCHC RDW Plt Count Lymph % (Auto) Loving % (Auto) Eos % (Auto) Lymph # (Auto) Loving # (Auto) Eos # (Auto) Seg Neutrophils % Seg Neuts % (Manual) Lymphocytes % (Manual) Monocytes % (Manual) Seg Neutrophils # Seg Neutrophils # Man Lymphocytes # (Manual) Monocytes # (Manual) PT INR ABG pH POC ABG pCO2 POC ABG pO2 ABG pO2 ABG HCO3 ABG O2 Saturation ABG Base Excess ABG Hemoglobin ABG Oxyhemoglobin ABG Sodium ABG Potassium ABG Chloride ABG Glucose Oxyhemoglobin Sodium Potassium Chloride Carbon Dioxide BUN Creatinine Glucose POC Glucose 178 H 155 H Lactic Acid Calcium Phosphorus Magnesium Total Bilirubin AST ALT Alkaline Phosphatase Total Protein Albumin Triglycerides Arterial Blood Glucose Arterial Blood Ionized Calcium Digoxin Crossmatch See Detail 01/06/21 01/06/21 01/07/21 17:35 22:21 03:07 WBC RBC Hgb Hct MCV MCHC RDW Plt Count Lymph % (Auto) Loving % (Auto) Eos % (Auto) Lymph # (Auto) Loving # (Auto) Eos # (Auto) Seg Neutrophils % Seg Neuts % (Manual) Lymphocytes % (Manual) Monocytes % (Manual) Seg Neutrophils # Seg Neutrophils # Man Lymphocytes # (Manual) Monocytes # (Manual) PT INR ABG pH POC ABG pCO2 POC ABG pO2 ABG pO2 ABG HCO3 ABG O2 Saturation ABG Base Excess ABG Hemoglobin 11.9 L ABG Oxyhemoglobin ABG Sodium 135.6 L ABG Potassium ABG Chloride ABG Glucose 181 H Oxyhemoglobin Sodium Potassium Chloride Carbon Dioxide BUN Creatinine Glucose POC Glucose 138 H 202 H Lactic Acid Calcium Phosphorus Magnesium Total Bilirubin AST ALT Alkaline Phosphatase Total Protein Albumin Triglycerides Arterial Blood Glucose 181 H Arterial Blood Ionized Calcium 4.3 L Digoxin Crossmatch 01/07/21 01/07/21 01/07/21 04:50 05:21 08:37 WBC 12.4 H RBC Hgb 11.1 L Hct 33.3 L D MCV MCHC RDW 17.0 H Plt Count Lymph % (Auto) 3.2 L Loving % (Auto) 9.4 H Eos % (Auto) Lymph # (Auto) 0.4 L Loving # (Auto) 1.2 H Eos # (Auto) Seg Neutrophils % 86.6 H Seg Neuts % (Manual) Lymphocytes % (Manual) Monocytes % (Manual) Seg Neutrophils # 10.7 H Seg Neutrophils # Man Lymphocytes # (Manual) Monocytes # (Manual) PT INR ABG pH POC ABG pCO2 POC ABG pO2 ABG pO2 ABG HCO3 ABG O2 Saturation ABG Base Excess ABG Hemoglobin ABG Oxyhemoglobin ABG Sodium ABG Potassium ABG Chloride ABG Glucose Oxyhemoglobin Sodium Potassium Chloride Carbon Dioxide BUN 60 H Creatinine 6.3 H Glucose 154 H POC Glucose 177 H Lactic Acid Calcium 8.3 L Phosphorus Magnesium Total Bilirubin AST ALT Alkaline Phosphatase Total Protein Albumin Triglycerides Arterial Blood Glucose Arterial Blood Ionized Calcium Digoxin Crossmatch 01/07/21 01/07/21 01/07/21 11:21 12:19 17:11 WBC RBC Hgb Hct MCV MCHC RDW Plt Count Lymph % (Auto) Loving % (Auto) Eos % (Auto) Lymph # (Auto) Loving # (Auto) Eos # (Auto) Seg Neutrophils % Seg Neuts % (Manual) Lymphocytes % (Manual) Monocytes % (Manual) Seg Neutrophils # Seg Neutrophils # Man Lymphocytes # (Manual) Monocytes # (Manual) PT INR ABG pH POC ABG pCO2 POC ABG pO2 ABG pO2 ABG HCO3 ABG O2 Saturation ABG Base Excess ABG Hemoglobin ABG Oxyhemoglobin ABG Sodium ABG Potassium ABG Chloride ABG Glucose Oxyhemoglobin Sodium Potassium Chloride Carbon Dioxide BUN Creatinine Glucose POC Glucose 144 H 137 H 119 H Lactic Acid Calcium Phosphorus Magnesium Total Bilirubin AST ALT Alkaline Phosphatase Total Protein Albumin Triglycerides Arterial Blood Glucose Arterial Blood Ionized Calcium Digoxin Crossmatch 01/07/21 01/07/21 01/08/21 17:14 23:39 04:34 WBC RBC Hgb Hct MCV MCHC RDW Plt Count Lymph % (Auto) Loving % (Auto) Eos % (Auto) Lymph # (Auto) Loving # (Auto) Eos # (Auto) Seg Neutrophils % Seg Neuts % (Manual) Lymphocytes % (Manual) Monocytes % (Manual) Seg Neutrophils # Seg Neutrophils # Man Lymphocytes # (Manual) Monocytes # (Manual) PT INR ABG pH 7.345 L POC ABG pCO2 POC ABG pO2 ABG pO2 67.4 L ABG HCO3 ABG O2 Saturation 94.3 L ABG Base Excess -3.9 L ABG Hemoglobin 8.9 L ABG Oxyhemoglobin ABG Sodium ABG Potassium ABG Chloride ABG Glucose Oxyhemoglobin 92.3 L Sodium Potassium Chloride Carbon Dioxide 20 L BUN 93 H Creatinine 8.8 H Glucose 120 H POC Glucose 129 H Lactic Acid Calcium Phosphorus Magnesium Total Bilirubin AST ALT Alkaline Phosphatase 133 H Total Protein 5.4 L Albumin 1.9 L Triglycerides Arterial Blood Glucose Arterial Blood Ionized Calcium Digoxin Crossmatch 01/08/21 01/08/21 01/08/21 05:26 11:38 17:19 WBC RBC Hgb Hct MCV MCHC RDW Plt Count Lymph % (Auto) Loving % (Auto) Eos % (Auto) Lymph # (Auto) Loving # (Auto) Eos # (Auto) Seg Neutrophils % Seg Neuts % (Manual) Lymphocytes % (Manual) Monocytes % (Manual) Seg Neutrophils # Seg Neutrophils # Man Lymphocytes # (Manual) Monocytes # (Manual) PT INR ABG pH POC ABG pCO2 POC ABG pO2 ABG pO2 ABG HCO3 ABG O2 Saturation ABG Base Excess ABG Hemoglobin ABG Oxyhemoglobin ABG Sodium ABG Potassium ABG Chloride ABG Glucose Oxyhemoglobin Sodium Potassium Chloride Carbon Dioxide BUN Creatinine Glucose POC Glucose 125 H 146 H 136 H Lactic Acid Calcium Phosphorus Magnesium Total Bilirubin AST ALT Alkaline Phosphatase Total Protein Albumin Triglycerides Arterial Blood Glucose Arterial Blood Ionized Calcium Digoxin Crossmatch 01/08/21 01/09/21 01/09/21 23:52 05:13 05:21 WBC RBC Hgb Hct MCV MCHC RDW Plt Count Lymph % (Auto) Loving % (Auto) Eos % (Auto) Lymph # (Auto) Loving # (Auto) Eos # (Auto) Seg Neutrophils % Seg Neuts % (Manual) Lymphocytes % (Manual) Monocytes % (Manual) Seg Neutrophils # Seg Neutrophils # Man Lymphocytes # (Manual) Monocytes # (Manual) PT INR ABG pH POC ABG pCO2 POC ABG pO2 ABG pO2 ABG HCO3 ABG O2 Saturation ABG Base Excess ABG Hemoglobin ABG Oxyhemoglobin ABG Sodium ABG Potassium ABG Chloride ABG Glucose Oxyhemoglobin Sodium Potassium Chloride Carbon Dioxide 16 L BUN 123 H Creatinine 10.8 H Glucose 145 H POC Glucose 143 H 144 H Lactic Acid Calcium Phosphorus 5.00 H D Magnesium 2.40 H Total Bilirubin AST ALT Alkaline Phosphatase Total Protein Albumin Triglycerides Arterial Blood Glucose Arterial Blood Ionized Calcium Digoxin Crossmatch 01/09/21 01/09/21 01/09/21 12:08 17:20 23:56 WBC RBC Hgb Hct MCV MCHC RDW Plt Count Lymph % (Auto) Loving % (Auto) Eos % (Auto) Lymph # (Auto) Loving # (Auto) Eos # (Auto) Seg Neutrophils % Seg Neuts % (Manual) Lymphocytes % (Manual) Monocytes % (Manual) Seg Neutrophils # Seg Neutrophils # Man Lymphocytes # (Manual) Monocytes # (Manual) PT INR ABG pH POC ABG pCO2 POC ABG pO2 ABG pO2 ABG HCO3 ABG O2 Saturation ABG Base Excess ABG Hemoglobin ABG Oxyhemoglobin ABG Sodium ABG Potassium ABG Chloride ABG Glucose Oxyhemoglobin Sodium Potassium Chloride Carbon Dioxide BUN Creatinine Glucose POC Glucose 153 H 160 H 158 H Lactic Acid Calcium Phosphorus Magnesium Total Bilirubin AST ALT Alkaline Phosphatase Total Protein Albumin Triglycerides Arterial Blood Glucose Arterial Blood Ionized Calcium Digoxin Crossmatch 01/10/21 01/10/21 01/10/21 04:52 05:44 07:41 WBC RBC Hgb Hct MCV MCHC RDW Plt Count Lymph % (Auto) Loving % (Auto) Eos % (Auto) Lymph # (Auto) Loving # (Auto) Eos # (Auto) Seg Neutrophils % Seg Neuts % (Manual) Lymphocytes % (Manual) Monocytes % (Manual) Seg Neutrophils # Seg Neutrophils # Man Lymphocytes # (Manual) Monocytes # (Manual) PT INR ABG pH POC ABG pCO2 POC ABG pO2 ABG pO2 ABG HCO3 ABG O2 Saturation ABG Base Excess ABG Hemoglobin ABG Oxyhemoglobin ABG Sodium ABG Potassium ABG Chloride ABG Glucose Oxyhemoglobin Sodium 135 L Potassium 3.5 L D Chloride 95.0 L Carbon Dioxide 21 L BUN 93 H Creatinine 8.3 H Glucose 127 H POC Glucose 135 H 157 H Lactic Acid Calcium Phosphorus Magnesium Total Bilirubin AST ALT Alkaline Phosphatase Total Protein Albumin Triglycerides Arterial Blood Glucose Arterial Blood Ionized Calcium Digoxin Crossmatch 01/10/21 01/10/21 01/10/21 09:26 12:03 17:44 WBC 18.2 H RBC 3.14 L Hgb 9.7 L Hct 28.2 L MCV MCHC RDW 16.5 H Plt Count Lymph % (Auto) Loving % (Auto) Eos % (Auto) Lymph # (Auto) Loving # (Auto) Eos # (Auto) Seg Neutrophils % Seg Neuts % (Manual) 95.0 H Lymphocytes % (Manual) 3.0 L Monocytes % (Manual) Seg Neutrophils # Seg Neutrophils # Man 17.3 H Lymphocytes # (Manual) 0.5 L Monocytes # (Manual) PT INR ABG pH POC ABG pCO2 POC ABG pO2 ABG pO2 ABG HCO3 ABG O2 Saturation ABG Base Excess ABG Hemoglobin ABG Oxyhemoglobin ABG Sodium ABG Potassium ABG Chloride ABG Glucose Oxyhemoglobin Sodium Potassium Chloride Carbon Dioxide BUN Creatinine Glucose POC Glucose 163 H 171 H Lactic Acid Calcium Phosphorus Magnesium Total Bilirubin AST ALT Alkaline Phosphatase Total Protein Albumin Triglycerides Arterial Blood Glucose Arterial Blood Ionized Calcium Digoxin Crossmatch 01/10/21 01/11/21 01/11/21 23:50 05:18 05:18 WBC RBC Hgb Hct MCV MCHC RDW Plt Count Lymph % (Auto) Loving % (Auto) Eos % (Auto) Lymph # (Auto) Loving # (Auto) Eos # (Auto) Seg Neutrophils % Seg Neuts % (Manual) Lymphocytes % (Manual) Monocytes % (Manual) Seg Neutrophils # Seg Neutrophils # Man Lymphocytes # (Manual) Monocytes # (Manual) PT INR ABG pH POC ABG pCO2 POC ABG pO2 ABG pO2 ABG HCO3 ABG O2 Saturation ABG Base Excess ABG Hemoglobin ABG Oxyhemoglobin ABG Sodium ABG Potassium ABG Chloride ABG Glucose Oxyhemoglobin Sodium 136 L Potassium Chloride 94.6 L Carbon Dioxide 19 L BUN 145 H Creatinine 10.6 H Glucose 152 H POC Glucose 151 H Lactic Acid Calcium Phosphorus 6.00 H D Magnesium Total Bilirubin AST ALT Alkaline Phosphatase Total Protein Albumin Triglycerides Arterial Blood Glucose Arterial Blood Ionized Calcium Digoxin 0.8 L Crossmatch 01/11/21 01/11/21 01/11/21 05:18 05:19 11:28 WBC 17.4 H RBC 3.34 L Hgb 10.2 L Hct 29.7 L MCV MCHC RDW 15.9 H Plt Count Lymph % (Auto) Loving % (Auto) Eos % (Auto) Lymph # (Auto) Loving # (Auto) Eos # (Auto) Seg Neutrophils % Seg Neuts % (Manual) Lymphocytes % (Manual) Monocytes % (Manual) Seg Neutrophils # Seg Neutrophils # Man Lymphocytes # (Manual) Monocytes # (Manual) PT INR ABG pH POC ABG pCO2 POC ABG pO2 ABG pO2 ABG HCO3 ABG O2 Saturation ABG Base Excess ABG Hemoglobin ABG Oxyhemoglobin ABG Sodium ABG Potassium ABG Chloride ABG Glucose Oxyhemoglobin Sodium Potassium Chloride Carbon Dioxide BUN Creatinine Glucose POC Glucose 149 H 178 H Lactic Acid Calcium Phosphorus Magnesium Total Bilirubin AST ALT Alkaline Phosphatase Total Protein Albumin Triglycerides Arterial Blood Glucose Arterial Blood Ionized Calcium Digoxin Crossmatch 01/11/21 01/11/21 01/12/21 17:31 23:14 05:18 WBC RBC Hgb Hct MCV MCHC RDW Plt Count Lymph % (Auto) Loving % (Auto) Eos % (Auto) Lymph # (Auto) Loving # (Auto) Eos # (Auto) Seg Neutrophils % Seg Neuts % (Manual) Lymphocytes % (Manual) Monocytes % (Manual) Seg Neutrophils # Seg Neutrophils # Man Lymphocytes # (Manual) Monocytes # (Manual) PT INR ABG pH POC ABG pCO2 POC ABG pO2 ABG pO2 ABG HCO3 ABG O2 Saturation ABG Base Excess ABG Hemoglobin ABG Oxyhemoglobin ABG Sodium ABG Potassium ABG Chloride ABG Glucose Oxyhemoglobin Sodium Potassium Chloride Carbon Dioxide BUN Creatinine Glucose POC Glucose 158 H 145 H 148 H Lactic Acid Calcium Phosphorus Magnesium Total Bilirubin AST ALT Alkaline Phosphatase Total Protein Albumin Triglycerides Arterial Blood Glucose Arterial Blood Ionized Calcium Digoxin Crossmatch 01/12/21 01/12/21 01/12/21 06:50 10:45 13:34 WBC RBC Hgb Hct MCV MCHC RDW Plt Count Lymph % (Auto) Loving % (Auto) Eos % (Auto) Lymph # (Auto) Loving # (Auto) Eos # (Auto) Seg Neutrophils % Seg Neuts % (Manual) Lymphocytes % (Manual) Monocytes % (Manual) Seg Neutrophils # Seg Neutrophils # Man Lymphocytes # (Manual) Monocytes # (Manual) PT INR ABG pH POC ABG pCO2 POC ABG pO2 ABG pO2 ABG HCO3 ABG O2 Saturation ABG Base Excess ABG Hemoglobin ABG Oxyhemoglobin ABG Sodium ABG Potassium ABG Chloride ABG Glucose Oxyhemoglobin Sodium Potassium 2.9 L* D Chloride 94.8 L Carbon Dioxide BUN 102 H Creatinine 8.3 H Glucose 139 H POC Glucose 151 H 134 H Lactic Acid Calcium 8.1 L Phosphorus 5.00 H Magnesium Total Bilirubin AST ALT Alkaline Phosphatase Total Protein Albumin Triglycerides Arterial Blood Glucose Arterial Blood Ionized Calcium Digoxin Crossmatch 01/12/21 01/12/21 01/13/21 16:59 23:06 03:45 WBC RBC Hgb Hct MCV MCHC RDW Plt Count Lymph % (Auto) Loving % (Auto) Eos % (Auto) Lymph # (Auto) Loving # (Auto) Eos # (Auto) Seg Neutrophils % Seg Neuts % (Manual) Lymphocytes % (Manual) Monocytes % (Manual) Seg Neutrophils # Seg Neutrophils # Man Lymphocytes # (Manual) Monocytes # (Manual) PT INR ABG pH POC ABG pCO2 POC ABG pO2 ABG pO2 ABG HCO3 ABG O2 Saturation ABG Base Excess ABG Hemoglobin ABG Oxyhemoglobin ABG Sodium ABG Potassium ABG Chloride ABG Glucose Oxyhemoglobin Sodium 136 L Potassium 3.4 L Chloride 92.6 L Carbon Dioxide BUN 134 H Creatinine 10.4 H Glucose 126 H POC Glucose 108 H 135 H Lactic Acid Calcium 8.3 L Phosphorus 5.60 H Magnesium 1.50 L Total Bilirubin AST ALT Alkaline Phosphatase Total Protein Albumin Triglycerides Arterial Blood Glucose Arterial Blood Ionized Calcium Digoxin Crossmatch 01/13/21 01/13/21 01/13/21 03:45 05:55 11:59 WBC 17.6 H RBC 3.33 L Hgb 10.2 L Hct 29.5 L MCV MCHC 35 H RDW 15.5 H Plt Count Lymph % (Auto) 4.4 L Loving % (Auto) 10.3 H Eos % (Auto) Lymph # (Auto) 0.8 L Loving # (Auto) 1.8 H Eos # (Auto) Seg Neutrophils % 84.2 H Seg Neuts % (Manual) Lymphocytes % (Manual) Monocytes % (Manual) Seg Neutrophils # 14.8 H Seg Neutrophils # Man Lymphocytes # (Manual) Monocytes # (Manual) PT INR ABG pH POC ABG pCO2 POC ABG pO2 ABG pO2 ABG HCO3 ABG O2 Saturation ABG Base Excess ABG Hemoglobin ABG Oxyhemoglobin ABG Sodium ABG Potassium ABG Chloride ABG Glucose Oxyhemoglobin Sodium Potassium Chloride Carbon Dioxide BUN Creatinine Glucose POC Glucose 134 H 141 H Lactic Acid Calcium Phosphorus Magnesium Total Bilirubin AST ALT Alkaline Phosphatase Total Protein Albumin Triglycerides Arterial Blood Glucose Arterial Blood Ionized Calcium Digoxin Crossmatch 01/13/21 01/14/21 01/14/21 23:09 05:39 05:57 WBC RBC Hgb Hct MCV MCHC RDW Plt Count Lymph % (Auto) Loving % (Auto) Eos % (Auto) Lymph # (Auto) Loving # (Auto) Eos # (Auto) Seg Neutrophils % Seg Neuts % (Manual) Lymphocytes % (Manual) Monocytes % (Manual) Seg Neutrophils # Seg Neutrophils # Man Lymphocytes # (Manual) Monocytes # (Manual) PT INR ABG pH POC ABG pCO2 POC ABG pO2 ABG pO2 ABG HCO3 ABG O2 Saturation ABG Base Excess ABG Hemoglobin ABG Oxyhemoglobin ABG Sodium ABG Potassium ABG Chloride ABG Glucose Oxyhemoglobin Sodium Potassium Chloride 97.6 L Carbon Dioxide BUN 81 H Creatinine 7.6 H Glucose 193 H POC Glucose 106 H 190 H Lactic Acid Calcium 8.2 L Phosphorus 4.60 H Magnesium Total Bilirubin AST ALT Alkaline Phosphatase Total Protein Albumin Triglycerides Arterial Blood Glucose Arterial Blood Ionized Calcium Digoxin Crossmatch 01/14/21 01/14/21 01/14/21 10:00 16:56 16:59 WBC 17.0 H RBC 3.10 L Hgb 9.6 L Hct 27.4 L MCV MCHC 35 H RDW 15.6 H Plt Count Lymph % (Auto) Loving % (Auto) Eos % (Auto) Lymph # (Auto) Loving # (Auto) Eos # (Auto) Seg Neutrophils % Seg Neuts % (Manual) Lymphocytes % (Manual) Monocytes % (Manual) Seg Neutrophils # Seg Neutrophils # Man Lymphocytes # (Manual) Monocytes # (Manual) PT INR ABG pH POC ABG pCO2 POC ABG pO2 ABG pO2 ABG HCO3 ABG O2 Saturation ABG Base Excess ABG Hemoglobin ABG Oxyhemoglobin ABG Sodium ABG Potassium ABG Chloride ABG Glucose Oxyhemoglobin Sodium Potassium Chloride Carbon Dioxide BUN Creatinine Glucose POC Glucose 37 L 34 L Lactic Acid Calcium Phosphorus Magnesium Total Bilirubin AST ALT Alkaline Phosphatase Total Protein Albumin Triglycerides Arterial Blood Glucose Arterial Blood Ionized Calcium Digoxin Crossmatch 01/14/21 01/14/21 01/14/21 17:02 18:34 23:17 WBC RBC Hgb Hct MCV MCHC RDW Plt Count Lymph % (Auto) Loving % (Auto) Eos % (Auto) Lymph # (Auto) Loving # (Auto) Eos # (Auto) Seg Neutrophils % Seg Neuts % (Manual) Lymphocytes % (Manual) Monocytes % (Manual) Seg Neutrophils # Seg Neutrophils # Man Lymphocytes # (Manual) Monocytes # (Manual) PT INR ABG pH POC ABG pCO2 POC ABG pO2 ABG pO2 ABG HCO3 ABG O2 Saturation ABG Base Excess ABG Hemoglobin ABG Oxyhemoglobin ABG Sodium ABG Potassium ABG Chloride ABG Glucose Oxyhemoglobin Sodium Potassium Chloride Carbon Dioxide BUN Creatinine Glucose POC Glucose 35 L 143 H 53 L Lactic Acid Calcium Phosphorus Magnesium Total Bilirubin AST ALT Alkaline Phosphatase Total Protein Albumin Triglycerides Arterial Blood Glucose Arterial Blood Ionized Calcium Digoxin Crossmatch 01/15/21 01/15/21 01/15/21 00:34 04:00 04:00 WBC 15.9 H RBC 3.02 L Hgb 9.3 L Hct 27.3 L MCV MCHC RDW 15.6 H Plt Count Lymph % (Auto) Loving % (Auto) Eos % (Auto) Lymph # (Auto) Loving # (Auto) Eos # (Auto) Seg Neutrophils % Seg Neuts % (Manual) Lymphocytes % (Manual) Monocytes % (Manual) Seg Neutrophils # Seg Neutrophils # Man Lymphocytes # (Manual) Monocytes # (Manual) PT INR ABG pH POC ABG pCO2 POC ABG pO2 ABG pO2 ABG HCO3 ABG O2 Saturation ABG Base Excess ABG Hemoglobin ABG Oxyhemoglobin ABG Sodium ABG Potassium ABG Chloride ABG Glucose Oxyhemoglobin Sodium 136 L Potassium Chloride 94.3 L Carbon Dioxide BUN 117 H Creatinine 9.9 H Glucose 217 H POC Glucose 181 H Lactic Acid Calcium 8.3 L Phosphorus Magnesium Total Bilirubin AST ALT Alkaline Phosphatase Total Protein Albumin Triglycerides Arterial Blood Glucose Arterial Blood Ionized Calcium Digoxin Crossmatch 01/15/21 01/15/21 01/15/21 05:29 11:51 23:13 WBC RBC Hgb Hct MCV MCHC RDW Plt Count Lymph % (Auto) Loving % (Auto) Eos % (Auto) Lymph # (Auto) Loving # (Auto) Eos # (Auto) Seg Neutrophils % Seg Neuts % (Manual) Lymphocytes % (Manual) Monocytes % (Manual) Seg Neutrophils # Seg Neutrophils # Man Lymphocytes # (Manual) Monocytes # (Manual) PT INR ABG pH POC ABG pCO2 POC ABG pO2 ABG pO2 ABG HCO3 ABG O2 Saturation ABG Base Excess ABG Hemoglobin ABG Oxyhemoglobin ABG Sodium ABG Potassium ABG Chloride ABG Glucose Oxyhemoglobin Sodium Potassium Chloride Carbon Dioxide BUN Creatinine Glucose POC Glucose 221 H 62 L 154 H Lactic Acid Calcium Phosphorus Magnesium Total Bilirubin AST ALT Alkaline Phosphatase Total Protein Albumin Triglycerides Arterial Blood Glucose Arterial Blood Ionized Calcium Digoxin Crossmatch 01/16/21 01/16/21 01/16/21 05:04 06:44 06:44 WBC 14.8 H RBC 2.76 L Hgb 8.2 L Hct 24.8 L MCV MCHC RDW 15.6 H Plt Count Lymph % (Auto) Loving % (Auto) Eos % (Auto) Lymph # (Auto) Loving # (Auto) Eos # (Auto) Seg Neutrophils % Seg Neuts % (Manual) Lymphocytes % (Manual) Monocytes % (Manual) Seg Neutrophils # Seg Neutrophils # Man Lymphocytes # (Manual) Monocytes # (Manual) PT INR ABG pH POC ABG pCO2 POC ABG pO2 ABG pO2 ABG HCO3 ABG O2 Saturation ABG Base Excess ABG Hemoglobin ABG Oxyhemoglobin ABG Sodium ABG Potassium ABG Chloride ABG Glucose Oxyhemoglobin Sodium 133 L Potassium Chloride 92.3 L Carbon Dioxide 20 L BUN 160 H Creatinine 12.1 H Glucose 177 H POC Glucose 168 H Lactic Acid Calcium 8.1 L Phosphorus 5.50 H Magnesium 2.50 H Total Bilirubin AST ALT Alkaline Phosphatase Total Protein Albumin Triglycerides Arterial Blood Glucose Arterial Blood Ionized Calcium Digoxin Crossmatch 01/16/21 01/17/21 01/17/21 23:20 05:14 05:14 WBC 12.7 H RBC 2.75 L Hgb 8.5 L Hct 24.6 L MCV MCHC 35 H RDW 15.4 H Plt Count Lymph % (Auto) Loving % (Auto) Eos % (Auto) Lymph # (Auto) Loving # (Auto) Eos # (Auto) Seg Neutrophils % Seg Neuts % (Manual) Lymphocytes % (Manual) Monocytes % (Manual) Seg Neutrophils # Seg Neutrophils # Man Lymphocytes # (Manual) Monocytes # (Manual) PT INR ABG pH POC ABG pCO2 POC ABG pO2 ABG pO2 ABG HCO3 ABG O2 Saturation ABG Base Excess ABG Hemoglobin ABG Oxyhemoglobin ABG Sodium ABG Potassium ABG Chloride ABG Glucose Oxyhemoglobin Sodium Potassium Chloride 97.9 L Carbon Dioxide BUN 84 H Creatinine 7.8 H Glucose 176 H POC Glucose 153 H Lactic Acid Calcium 8.0 L Phosphorus Magnesium Total Bilirubin AST ALT Alkaline Phosphatase Total Protein Albumin Triglycerides Arterial Blood Glucose Arterial Blood Ionized Calcium Digoxin Crossmatch 01/17/21 01/17/21 01/18/21 05:33 11:58 00:07 WBC RBC Hgb Hct MCV MCHC RDW Plt Count Lymph % (Auto) Loving % (Auto) Eos % (Auto) Lymph # (Auto) Loving # (Auto) Eos # (Auto) Seg Neutrophils % Seg Neuts % (Manual) Lymphocytes % (Manual) Monocytes % (Manual) Seg Neutrophils # Seg Neutrophils # Man Lymphocytes # (Manual) Monocytes # (Manual) PT INR ABG pH POC ABG pCO2 POC ABG pO2 ABG pO2 ABG HCO3 ABG O2 Saturation ABG Base Excess ABG Hemoglobin ABG Oxyhemoglobin ABG Sodium ABG Potassium ABG Chloride ABG Glucose Oxyhemoglobin Sodium Potassium Chloride Carbon Dioxide BUN Creatinine Glucose POC Glucose 162 H 64 L 146 H Lactic Acid Calcium Phosphorus Magnesium Total Bilirubin AST ALT Alkaline Phosphatase Total Protein Albumin Triglycerides Arterial Blood Glucose Arterial Blood Ionized Calcium Digoxin Crossmatch 01/18/21 01/18/21 01/18/21 04:19 04:19 06:15 WBC 15.6 H RBC 3.00 L Hgb 9.2 L Hct 26.8 L MCV MCHC 35 H RDW 15.6 H Plt Count Lymph % (Auto) Loving % (Auto) Eos % (Auto) Lymph # (Auto) Loving # (Auto) Eos # (Auto) Seg Neutrophils % Seg Neuts % (Manual) Lymphocytes % (Manual) Monocytes % (Manual) Seg Neutrophils # Seg Neutrophils # Man Lymphocytes # (Manual) Monocytes # (Manual) PT INR ABG pH POC ABG pCO2 POC ABG pO2 ABG pO2 ABG HCO3 ABG O2 Saturation ABG Base Excess ABG Hemoglobin ABG Oxyhemoglobin ABG Sodium ABG Potassium ABG Chloride ABG Glucose Oxyhemoglobin Sodium Potassium Chloride 96.2 L Carbon Dioxide BUN 117 H Creatinine 10.0 H Glucose 165 H POC Glucose 189 H Lactic Acid Calcium Phosphorus 4.70 H D Magnesium Total Bilirubin AST ALT Alkaline Phosphatase Total Protein Albumin Triglycerides Arterial Blood Glucose Arterial Blood Ionized Calcium Digoxin Crossmatch 01/18/21 01/18/21 01/18/21 11:53 13:44 15:08 WBC RBC Hgb Hct MCV MCHC RDW Plt Count Lymph % (Auto) Loving % (Auto) Eos % (Auto) Lymph # (Auto) Loving # (Auto) Eos # (Auto) Seg Neutrophils % Seg Neuts % (Manual) Lymphocytes % (Manual) Monocytes % (Manual) Seg Neutrophils # Seg Neutrophils # Man Lymphocytes # (Manual) Monocytes # (Manual) PT INR ABG pH POC ABG pCO2 POC ABG pO2 ABG pO2 ABG HCO3 ABG O2 Saturation ABG Base Excess ABG Hemoglobin ABG Oxyhemoglobin ABG Sodium ABG Potassium ABG Chloride ABG Glucose Oxyhemoglobin Sodium Potassium Chloride Carbon Dioxide BUN Creatinine Glucose POC Glucose 69 L 50 L 56 L Lactic Acid Calcium Phosphorus Magnesium Total Bilirubin AST ALT Alkaline Phosphatase Total Protein Albumin Triglycerides Arterial Blood Glucose Arterial Blood Ionized Calcium Digoxin Crossmatch 01/18/21 01/19/21 01/19/21 17:50 04:55 08:56 WBC 12.7 H RBC 2.89 L Hgb 8.7 L Hct 25.6 L MCV MCHC RDW 15.5 H Plt Count Lymph % (Auto) Loving % (Auto) Eos % (Auto) Lymph # (Auto) Loving # (Auto) Eos # (Auto) Seg Neutrophils % Seg Neuts % (Manual) Lymphocytes % (Manual) Monocytes % (Manual) Seg Neutrophils # Seg Neutrophils # Man Lymphocytes # (Manual) Monocytes # (Manual) PT INR ABG pH POC ABG pCO2 POC ABG pO2 ABG pO2 ABG HCO3 ABG O2 Saturation ABG Base Excess ABG Hemoglobin ABG Oxyhemoglobin ABG Sodium ABG Potassium ABG Chloride ABG Glucose Oxyhemoglobin Sodium Potassium Chloride Carbon Dioxide BUN Creatinine Glucose POC Glucose 137 H 120 H Lactic Acid Calcium Phosphorus Magnesium Total Bilirubin AST ALT Alkaline Phosphatase Total Protein Albumin Triglycerides Arterial Blood Glucose Arterial Blood Ionized Calcium Digoxin Crossmatch 01/19/21 01/19/21 01/19/21 08:56 11:33 17:32 WBC RBC Hgb Hct MCV MCHC RDW Plt Count Lymph % (Auto) Loving % (Auto) Eos % (Auto) Lymph # (Auto) Loving # (Auto) Eos # (Auto) Seg Neutrophils % Seg Neuts % (Manual) Lymphocytes % (Manual) Monocytes % (Manual) Seg Neutrophils # Seg Neutrophils # Man Lymphocytes # (Manual) Monocytes # (Manual) PT INR ABG pH POC ABG pCO2 POC ABG pO2 ABG pO2 ABG HCO3 ABG O2 Saturation ABG Base Excess ABG Hemoglobin ABG Oxyhemoglobin ABG Sodium ABG Potassium ABG Chloride ABG Glucose Oxyhemoglobin Sodium Potassium Chloride Carbon Dioxide BUN 66 H Creatinine 7.7 H Glucose 119 H POC Glucose 160 H 125 H Lactic Acid Calcium 8.3 L Phosphorus Magnesium Total Bilirubin AST ALT Alkaline Phosphatase Total Protein Albumin Triglycerides Arterial Blood Glucose Arterial Blood Ionized Calcium Digoxin Crossmatch 01/19/21 01/20/21 01/20/21 23:30 03:35 03:35 WBC 12.0 H RBC 2.62 L Hgb 8.3 L Hct 23.2 L MCV MCHC 36 H RDW Plt Count Lymph % (Auto) Loving % (Auto) Eos % (Auto) Lymph # (Auto) Loving # (Auto) Eos # (Auto) Seg Neutrophils % Seg Neuts % (Manual) Lymphocytes % (Manual) Monocytes % (Manual) Seg Neutrophils # Seg Neutrophils # Man Lymphocytes # (Manual) Monocytes # (Manual) PT INR ABG pH POC ABG pCO2 POC ABG pO2 ABG pO2 ABG HCO3 ABG O2 Saturation ABG Base Excess ABG Hemoglobin ABG Oxyhemoglobin ABG Sodium ABG Potassium ABG Chloride ABG Glucose Oxyhemoglobin Sodium Potassium Chloride Carbon Dioxide BUN 46 H Creatinine 5.9 H Glucose 128 H POC Glucose 127 H Lactic Acid Calcium Phosphorus Magnesium Total Bilirubin AST ALT Alkaline Phosphatase Total Protein Albumin Triglycerides Arterial Blood Glucose Arterial Blood Ionized Calcium Digoxin Crossmatch 01/20/21 01/20/21 01/20/21 06:19 11:55 18:00 WBC RBC Hgb Hct MCV MCHC RDW Plt Count Lymph % (Auto) Loving % (Auto) Eos % (Auto) Lymph # (Auto) Loving # (Auto) Eos # (Auto) Seg Neutrophils % Seg Neuts % (Manual) Lymphocytes % (Manual) Monocytes % (Manual) Seg Neutrophils # Seg Neutrophils # Man Lymphocytes # (Manual) Monocytes # (Manual) PT INR ABG pH POC ABG pCO2 POC ABG pO2 ABG pO2 ABG HCO3 ABG O2 Saturation ABG Base Excess ABG Hemoglobin ABG Oxyhemoglobin ABG Sodium ABG Potassium ABG Chloride ABG Glucose Oxyhemoglobin Sodium Potassium Chloride Carbon Dioxide BUN Creatinine Glucose POC Glucose 119 H 128 H 115 H Lactic Acid Calcium Phosphorus Magnesium Total Bilirubin AST ALT Alkaline Phosphatase Total Protein Albumin Triglycerides Arterial Blood Glucose Arterial Blood Ionized Calcium Digoxin Crossmatch 01/20/21 01/21/21 01/21/21 23:26 04:39 05:27 WBC RBC Hgb Hct MCV MCHC RDW Plt Count Lymph % (Auto) Loving % (Auto) Eos % (Auto) Lymph # (Auto) Loving # (Auto) Eos # (Auto) Seg Neutrophils % Seg Neuts % (Manual) Lymphocytes % (Manual) Monocytes % (Manual) Seg Neutrophils # Seg Neutrophils # Man Lymphocytes # (Manual) Monocytes # (Manual) PT INR ABG pH POC ABG pCO2 POC ABG pO2 ABG pO2 ABG HCO3 ABG O2 Saturation ABG Base Excess ABG Hemoglobin ABG Oxyhemoglobin ABG Sodium ABG Potassium ABG Chloride ABG Glucose Oxyhemoglobin Sodium Potassium Chloride Carbon Dioxide BUN 37 H Creatinine 5.3 H Glucose 109 H POC Glucose 108 H 107 H Lactic Acid Calcium Phosphorus 2.10 L Magnesium 1.50 L Total Bilirubin AST ALT Alkaline Phosphatase 143 H Total Protein 6.1 L Albumin 3.0 L Triglycerides Arterial Blood Glucose Arterial Blood Ionized Calcium Digoxin Crossmatch 01/21/21 01/21/21 01/22/21 11:35 17:53 00:20 WBC RBC Hgb Hct MCV MCHC RDW Plt Count Lymph % (Auto) Loving % (Auto) Eos % (Auto) Lymph # (Auto) Loving # (Auto) Eos # (Auto) Seg Neutrophils % Seg Neuts % (Manual) Lymphocytes % (Manual) Monocytes % (Manual) Seg Neutrophils # Seg Neutrophils # Man Lymphocytes # (Manual) Monocytes # (Manual) PT INR ABG pH POC ABG pCO2 POC ABG pO2 ABG pO2 ABG HCO3 ABG O2 Saturation ABG Base Excess ABG Hemoglobin ABG Oxyhemoglobin ABG Sodium ABG Potassium ABG Chloride ABG Glucose Oxyhemoglobin Sodium Potassium Chloride Carbon Dioxide BUN Creatinine Glucose POC Glucose 133 H 124 H 122 H Lactic Acid Calcium Phosphorus Magnesium Total Bilirubin AST ALT Alkaline Phosphatase Total Protein Albumin Triglycerides Arterial Blood Glucose Arterial Blood Ionized Calcium Digoxin Crossmatch 01/22/21 01/22/21 01/22/21 04:00 06:09 11:36 WBC RBC Hgb Hct MCV MCHC RDW Plt Count Lymph % (Auto) Loving % (Auto) Eos % (Auto) Lymph # (Auto) Loving # (Auto) Eos # (Auto) Seg Neutrophils % Seg Neuts % (Manual) Lymphocytes % (Manual) Monocytes % (Manual) Seg Neutrophils # Seg Neutrophils # Man Lymphocytes # (Manual) Monocytes # (Manual) PT INR ABG pH POC ABG pCO2 POC ABG pO2 ABG pO2 ABG HCO3 ABG O2 Saturation ABG Base Excess ABG Hemoglobin ABG Oxyhemoglobin ABG Sodium ABG Potassium ABG Chloride ABG Glucose Oxyhemoglobin Sodium Potassium Chloride Carbon Dioxide BUN 65 H Creatinine 8.2 H D Glucose 111 H POC Glucose 122 H 132 H Lactic Acid Calcium Phosphorus Magnesium Total Bilirubin AST ALT Alkaline Phosphatase Total Protein Albumin Triglycerides Arterial Blood Glucose Arterial Blood Ionized Calcium Digoxin Crossmatch 01/22/21 01/22/21 01/23/21 17:17 23:18 05:29 WBC RBC Hgb Hct MCV MCHC RDW Plt Count Lymph % (Auto) Loving % (Auto) Eos % (Auto) Lymph # (Auto) Loving # (Auto) Eos # (Auto) Seg Neutrophils % Seg Neuts % (Manual) Lymphocytes % (Manual) Monocytes % (Manual) Seg Neutrophils # Seg Neutrophils # Man Lymphocytes # (Manual) Monocytes # (Manual) PT INR ABG pH POC ABG pCO2 POC ABG pO2 ABG pO2 ABG HCO3 ABG O2 Saturation ABG Base Excess ABG Hemoglobin ABG Oxyhemoglobin ABG Sodium ABG Potassium ABG Chloride ABG Glucose Oxyhemoglobin Sodium Potassium Chloride Carbon Dioxide BUN Creatinine Glucose POC Glucose 135 H 128 H 129 H Lactic Acid Calcium Phosphorus Magnesium Total Bilirubin AST ALT Alkaline Phosphatase Total Protein Albumin Triglycerides Arterial Blood Glucose Arterial Blood Ionized Calcium Digoxin Crossmatch 01/23/21 01/23/21 01/23/21 05:45 11:28 16:39 WBC RBC Hgb Hct MCV MCHC RDW Plt Count Lymph % (Auto) Loving % (Auto) Eos % (Auto) Lymph # (Auto) Loving # (Auto) Eos # (Auto) Seg Neutrophils % Seg Neuts % (Manual) Lymphocytes % (Manual) Monocytes % (Manual) Seg Neutrophils # Seg Neutrophils # Man Lymphocytes # (Manual) Monocytes # (Manual) PT INR ABG pH POC ABG pCO2 POC ABG pO2 ABG pO2 ABG HCO3 ABG O2 Saturation ABG Base Excess ABG Hemoglobin ABG Oxyhemoglobin ABG Sodium ABG Potassium ABG Chloride ABG Glucose Oxyhemoglobin Sodium Potassium Chloride Carbon Dioxide BUN 96 H Creatinine 10.8 H Glucose 124 H POC Glucose 160 H 116 H Lactic Acid Calcium Phosphorus Magnesium 2.50 H Total Bilirubin AST ALT Alkaline Phosphatase Total Protein Albumin Triglycerides Arterial Blood Glucose Arterial Blood Ionized Calcium Digoxin Crossmatch 01/24/21 01/24/21 01/24/21 00:02 04:45 05:01 WBC RBC Hgb Hct MCV MCHC RDW Plt Count Lymph % (Auto) Loving % (Auto) Eos % (Auto) Lymph # (Auto) Loving # (Auto) Eos # (Auto) Seg Neutrophils % Seg Neuts % (Manual) Lymphocytes % (Manual) Monocytes % (Manual) Seg Neutrophils # Seg Neutrophils # Man Lymphocytes # (Manual) Monocytes # (Manual) PT INR ABG pH POC ABG pCO2 POC ABG pO2 ABG pO2 ABG HCO3 ABG O2 Saturation ABG Base Excess ABG Hemoglobin ABG Oxyhemoglobin ABG Sodium ABG Potassium ABG Chloride ABG Glucose Oxyhemoglobin Sodium Potassium 3.5 L Chloride Carbon Dioxide BUN 56 H Creatinine 7.7 H Glucose 102 H POC Glucose 120 H 108 H Lactic Acid Calcium Phosphorus Magnesium Total Bilirubin AST ALT Alkaline Phosphatase Total Protein Albumin Triglycerides Arterial Blood Glucose Arterial Blood Ionized Calcium Digoxin Crossmatch 01/24/21 01/24/21 01/24/21 12:03 17:07 23:55 WBC RBC Hgb Hct MCV MCHC RDW Plt Count Lymph % (Auto) Loving % (Auto) Eos % (Auto) Lymph # (Auto) Loving # (Auto) Eos # (Auto) Seg Neutrophils % Seg Neuts % (Manual) Lymphocytes % (Manual) Monocytes % (Manual) Seg Neutrophils # Seg Neutrophils # Man Lymphocytes # (Manual) Monocytes # (Manual) PT INR ABG pH POC ABG pCO2 POC ABG pO2 ABG pO2 ABG HCO3 ABG O2 Saturation ABG Base Excess ABG Hemoglobin ABG Oxyhemoglobin ABG Sodium ABG Potassium ABG Chloride ABG Glucose Oxyhemoglobin Sodium Potassium Chloride Carbon Dioxide BUN Creatinine Glucose POC Glucose 136 H 122 H 112 H Lactic Acid Calcium Phosphorus Magnesium Total Bilirubin AST ALT Alkaline Phosphatase Total Protein Albumin Triglycerides Arterial Blood Glucose Arterial Blood Ionized Calcium Digoxin Crossmatch 01/25/21 01/25/21 01/25/21 05:15 06:00 07:47 WBC RBC Hgb Hct MCV MCHC RDW Plt Count Lymph % (Auto) Loving % (Auto) Eos % (Auto) Lymph # (Auto) Loving # (Auto) Eos # (Auto) Seg Neutrophils % Seg Neuts % (Manual) Lymphocytes % (Manual) Monocytes % (Manual) Seg Neutrophils # Seg Neutrophils # Man Lymphocytes # (Manual) Monocytes # (Manual) PT INR ABG pH POC ABG pCO2 POC ABG pO2 ABG pO2 ABG HCO3 ABG O2 Saturation ABG Base Excess ABG Hemoglobin ABG Oxyhemoglobin ABG Sodium ABG Potassium ABG Chloride ABG Glucose Oxyhemoglobin Sodium 116 L* D Potassium Chloride 79.1 L Carbon Dioxide 17 L D BUN 72 H Creatinine 7.4 H Glucose 2242 H* POC Glucose 117 H 138 H Lactic Acid Calcium 6.7 L D Phosphorus Magnesium Total Bilirubin AST ALT Alkaline Phosphatase Total Protein Albumin Triglycerides Arterial Blood Glucose Arterial Blood Ionized Calcium Digoxin Crossmatch 01/25/21 01/25/21 01/25/21 08:35 11:49 18:42 WBC RBC Hgb Hct MCV MCHC RDW Plt Count Lymph % (Auto) Loving % (Auto) Eos % (Auto) Lymph # (Auto) Loving # (Auto) Eos # (Auto) Seg Neutrophils % Seg Neuts % (Manual) Lymphocytes % (Manual) Monocytes % (Manual) Seg Neutrophils # Seg Neutrophils # Man Lymphocytes # (Manual) Monocytes # (Manual) PT INR ABG pH POC ABG pCO2 POC ABG pO2 ABG pO2 ABG HCO3 ABG O2 Saturation ABG Base Excess ABG Hemoglobin ABG Oxyhemoglobin ABG Sodium ABG Potassium ABG Chloride ABG Glucose Oxyhemoglobin Sodium Potassium Chloride 97.0 L Carbon Dioxide BUN 92 H Creatinine 11.0 H Glucose 125 H POC Glucose 130 H 122 H Lactic Acid Calcium Phosphorus Magnesium Total Bilirubin AST ALT Alkaline Phosphatase Total Protein Albumin Triglycerides Arterial Blood Glucose Arterial Blood Ionized Calcium Digoxin Crossmatch 01/25/21 01/26/21 01/26/21 23:37 04:19 05:48 WBC RBC Hgb Hct MCV MCHC RDW Plt Count Lymph % (Auto) Loving % (Auto) Eos % (Auto) Lymph # (Auto) Loving # (Auto) Eos # (Auto) Seg Neutrophils % Seg Neuts % (Manual) Lymphocytes % (Manual) Monocytes % (Manual) Seg Neutrophils # Seg Neutrophils # Man Lymphocytes # (Manual) Monocytes # (Manual) PT INR ABG pH POC ABG pCO2 POC ABG pO2 ABG pO2 ABG HCO3 ABG O2 Saturation ABG Base Excess ABG Hemoglobin ABG Oxyhemoglobin ABG Sodium ABG Potassium ABG Chloride ABG Glucose Oxyhemoglobin Sodium Potassium Chloride Carbon Dioxide BUN 49 H Creatinine 7.1 H Glucose POC Glucose 144 H 125 H Lactic Acid Calcium Phosphorus Magnesium 1.50 L Total Bilirubin AST ALT Alkaline Phosphatase Total Protein Albumin Triglycerides Arterial Blood Glucose Arterial Blood Ionized Calcium Digoxin Crossmatch 01/26/21 01/26/21 01/27/21 11:16 18:35 00:01 WBC RBC Hgb Hct MCV MCHC RDW Plt Count Lymph % (Auto) Loving % (Auto) Eos % (Auto) Lymph # (Auto) Loving # (Auto) Eos # (Auto) Seg Neutrophils % Seg Neuts % (Manual) Lymphocytes % (Manual) Monocytes % (Manual) Seg Neutrophils # Seg Neutrophils # Man Lymphocytes # (Manual) Monocytes # (Manual) PT INR ABG pH POC ABG pCO2 POC ABG pO2 ABG pO2 ABG HCO3 ABG O2 Saturation ABG Base Excess ABG Hemoglobin ABG Oxyhemoglobin ABG Sodium ABG Potassium ABG Chloride ABG Glucose Oxyhemoglobin Sodium Potassium Chloride Carbon Dioxide BUN Creatinine Glucose POC Glucose 122 H 127 H 130 H Lactic Acid Calcium Phosphorus Magnesium Total Bilirubin AST ALT Alkaline Phosphatase Total Protein Albumin Triglycerides Arterial Blood Glucose Arterial Blood Ionized Calcium Digoxin Crossmatch 01/27/21 01/27/21 01/27/21 04:19 04:19 05:25 WBC 12.4 H RBC 2.79 L Hgb 8.6 L Hct 25.1 L MCV MCHC RDW 16.1 H Plt Count Lymph % (Auto) 7.5 L Loving % (Auto) 9.3 H Eos % (Auto) 4.8 H Lymph # (Auto) 0.9 L Loving # (Auto) 1.1 H Eos # (Auto) 0.6 H Seg Neutrophils % 78.0 H Seg Neuts % (Manual) Lymphocytes % (Manual) Monocytes % (Manual) Seg Neutrophils # 9.7 H Seg Neutrophils # Man Lymphocytes # (Manual) Monocytes # (Manual) PT INR ABG pH POC ABG pCO2 POC ABG pO2 ABG pO2 ABG HCO3 ABG O2 Saturation ABG Base Excess ABG Hemoglobin ABG Oxyhemoglobin ABG Sodium ABG Potassium ABG Chloride ABG Glucose Oxyhemoglobin Sodium Potassium Chloride 97.9 L Carbon Dioxide BUN 76 H Creatinine 9.9 H Glucose 111 H POC Glucose 129 H Lactic Acid Calcium Phosphorus Magnesium Total Bilirubin AST ALT Alkaline Phosphatase Total Protein Albumin Triglycerides Arterial Blood Glucose Arterial Blood Ionized Calcium Digoxin Crossmatch 01/27/21 01/27/21 01/27/21 11:30 17:08 23:28 WBC RBC Hgb Hct MCV MCHC RDW Plt Count Lymph % (Auto) Loving % (Auto) Eos % (Auto) Lymph # (Auto) Loving # (Auto) Eos # (Auto) Seg Neutrophils % Seg Neuts % (Manual) Lymphocytes % (Manual) Monocytes % (Manual) Seg Neutrophils # Seg Neutrophils # Man Lymphocytes # (Manual) Monocytes # (Manual) PT INR ABG pH POC ABG pCO2 POC ABG pO2 ABG pO2 ABG HCO3 ABG O2 Saturation ABG Base Excess ABG Hemoglobin ABG Oxyhemoglobin ABG Sodium ABG Potassium ABG Chloride ABG Glucose Oxyhemoglobin Sodium Potassium Chloride Carbon Dioxide BUN Creatinine Glucose POC Glucose 128 H 158 H 114 H Lactic Acid Calcium Phosphorus Magnesium Total Bilirubin AST ALT Alkaline Phosphatase Total Protein Albumin Triglycerides Arterial Blood Glucose Arterial Blood Ionized Calcium Digoxin Crossmatch 01/28/21 01/28/21 01/28/21 05:17 11:27 18:01 WBC RBC Hgb Hct MCV MCHC RDW Plt Count Lymph % (Auto) Loving % (Auto) Eos % (Auto) Lymph # (Auto) Loving # (Auto) Eos # (Auto) Seg Neutrophils % Seg Neuts % (Manual) Lymphocytes % (Manual) Monocytes % (Manual) Seg Neutrophils # Seg Neutrophils # Man Lymphocytes # (Manual) Monocytes # (Manual) PT INR ABG pH POC ABG pCO2 POC ABG pO2 ABG pO2 ABG HCO3 ABG O2 Saturation ABG Base Excess ABG Hemoglobin ABG Oxyhemoglobin ABG Sodium ABG Potassium ABG Chloride ABG Glucose Oxyhemoglobin Sodium Potassium Chloride Carbon Dioxide BUN Creatinine Glucose POC Glucose 113 H 134 H 111 H Lactic Acid Calcium Phosphorus Magnesium Total Bilirubin AST ALT Alkaline Phosphatase Total Protein Albumin Triglycerides Arterial Blood Glucose Arterial Blood Ionized Calcium Digoxin Crossmatch 01/29/21 01/29/21 01/29/21 04:54 06:45 11:10 WBC RBC Hgb Hct MCV MCHC RDW Plt Count Lymph % (Auto) Loving % (Auto) Eos % (Auto) Lymph # (Auto) Loving # (Auto) Eos # (Auto) Seg Neutrophils % Seg Neuts % (Manual) Lymphocytes % (Manual) Monocytes % (Manual) Seg Neutrophils # Seg Neutrophils # Man Lymphocytes # (Manual) Monocytes # (Manual) PT INR ABG pH POC ABG pCO2 POC ABG pO2 ABG pO2 ABG HCO3 ABG O2 Saturation ABG Base Excess ABG Hemoglobin ABG Oxyhemoglobin ABG Sodium ABG Potassium ABG Chloride ABG Glucose Oxyhemoglobin Sodium Potassium 3.4 L Chloride Carbon Dioxide BUN 51 H Creatinine 6.9 H Glucose 120 H POC Glucose 111 H 106 H Lactic Acid Calcium Phosphorus 2.10 L Magnesium Total Bilirubin AST ALT Alkaline Phosphatase 182 H Total Protein 6.0 L Albumin 2.9 L Triglycerides Arterial Blood Glucose Arterial Blood Ionized Calcium Digoxin Crossmatch 01/29/21 01/30/21 01/30/21 16:47 04:15 06:55 WBC RBC Hgb Hct MCV MCHC RDW Plt Count Lymph % (Auto) Loving % (Auto) Eos % (Auto) Lymph # (Auto) Loving # (Auto) Eos # (Auto) Seg Neutrophils % Seg Neuts % (Manual) Lymphocytes % (Manual) Monocytes % (Manual) Seg Neutrophils # Seg Neutrophils # Man Lymphocytes # (Manual) Monocytes # (Manual) PT INR ABG pH POC ABG pCO2 POC ABG pO2 ABG pO2 ABG HCO3 ABG O2 Saturation ABG Base Excess ABG Hemoglobin ABG Oxyhemoglobin ABG Sodium ABG Potassium ABG Chloride ABG Glucose Oxyhemoglobin Sodium Potassium Chloride Carbon Dioxide BUN 73 H Creatinine 9.2 H Glucose 119 H POC Glucose 110 H 126 H Lactic Acid Calcium Phosphorus 4.70 H D Magnesium Total Bilirubin AST ALT Alkaline Phosphatase Total Protein Albumin Triglycerides Arterial Blood Glucose Arterial Blood Ionized Calcium Digoxin Crossmatch 01/30/21 01/31/21 01/31/21 18:25 00:51 07:15 WBC RBC Hgb Hct MCV MCHC RDW Plt Count Lymph % (Auto) Loving % (Auto) Eos % (Auto) Lymph # (Auto) Loving # (Auto) Eos # (Auto) Seg Neutrophils % Seg Neuts % (Manual) Lymphocytes % (Manual) Monocytes % (Manual) Seg Neutrophils # Seg Neutrophils # Man Lymphocytes # (Manual) Monocytes # (Manual) PT INR ABG pH POC ABG pCO2 POC ABG pO2 ABG pO2 ABG HCO3 ABG O2 Saturation ABG Base Excess ABG Hemoglobin ABG Oxyhemoglobin ABG Sodium ABG Potassium ABG Chloride ABG Glucose Oxyhemoglobin Sodium Potassium Chloride Carbon Dioxide BUN Creatinine Glucose POC Glucose 117 H 134 H 134 H Lactic Acid Calcium Phosphorus Magnesium Total Bilirubin AST ALT Alkaline Phosphatase Total Protein Albumin Triglycerides Arterial Blood Glucose Arterial Blood Ionized Calcium Digoxin Crossmatch 01/31/21 01/31/21 02/01/21 11:45 23:15 05:51 WBC RBC Hgb Hct MCV MCHC RDW Plt Count Lymph % (Auto) Loving % (Auto) Eos % (Auto) Lymph # (Auto) Loving # (Auto) Eos # (Auto) Seg Neutrophils % Seg Neuts % (Manual) Lymphocytes % (Manual) Monocytes % (Manual) Seg Neutrophils # Seg Neutrophils # Man Lymphocytes # (Manual) Monocytes # (Manual) PT INR ABG pH POC ABG pCO2 POC ABG pO2 ABG pO2 ABG HCO3 ABG O2 Saturation ABG Base Excess ABG Hemoglobin ABG Oxyhemoglobin ABG Sodium ABG Potassium ABG Chloride ABG Glucose Oxyhemoglobin Sodium Potassium Chloride Carbon Dioxide BUN Creatinine Glucose POC Glucose 119 H 120 H 125 H Lactic Acid Calcium Phosphorus Magnesium Total Bilirubin AST ALT Alkaline Phosphatase Total Protein Albumin Triglycerides Arterial Blood Glucose Arterial Blood Ionized Calcium Digoxin Crossmatch 02/01/21 02/02/21 02/02/21 22:05 03:25 06:16 WBC RBC Hgb Hct MCV MCHC RDW Plt Count Lymph % (Auto) Loving % (Auto) Eos % (Auto) Lymph # (Auto) Loving # (Auto) Eos # (Auto) Seg Neutrophils % Seg Neuts % (Manual) Lymphocytes % (Manual) Monocytes % (Manual) Seg Neutrophils # Seg Neutrophils # Man Lymphocytes # (Manual) Monocytes # (Manual) PT INR ABG pH POC ABG pCO2 POC ABG pO2 ABG pO2 ABG HCO3 ABG O2 Saturation ABG Base Excess ABG Hemoglobin ABG Oxyhemoglobin ABG Sodium ABG Potassium ABG Chloride ABG Glucose Oxyhemoglobin Sodium Potassium 3.3 L Chloride Carbon Dioxide BUN 38 H Creatinine 5.8 H Glucose 115 H POC Glucose 118 H 130 H Lactic Acid Calcium Phosphorus 1.80 L Magnesium 1.60 L Total Bilirubin AST ALT Alkaline Phosphatase Total Protein Albumin Triglycerides Arterial Blood Glucose Arterial Blood Ionized Calcium Digoxin Crossmatch 02/02/21 02/02/21 02/03/21 17:29 21:53 04:50 WBC RBC Hgb Hct MCV MCHC RDW Plt Count Lymph % (Auto) Loving % (Auto) Eos % (Auto) Lymph # (Auto) Loving # (Auto) Eos # (Auto) Seg Neutrophils % Seg Neuts % (Manual) Lymphocytes % (Manual) Monocytes % (Manual) Seg Neutrophils # Seg Neutrophils # Man Lymphocytes # (Manual) Monocytes # (Manual) PT INR ABG pH POC ABG pCO2 POC ABG pO2 ABG pO2 ABG HCO3 ABG O2 Saturation ABG Base Excess ABG Hemoglobin ABG Oxyhemoglobin ABG Sodium ABG Potassium ABG Chloride ABG Glucose Oxyhemoglobin Sodium Potassium Chloride Carbon Dioxide BUN Creatinine Glucose POC Glucose 115 H 120 H Lactic Acid Calcium Phosphorus Magnesium 1.60 L Total Bilirubin AST ALT Alkaline Phosphatase Total Protein Albumin Triglycerides Arterial Blood Glucose Arterial Blood Ionized Calcium Digoxin Crossmatch 02/03/21 06:12 WBC RBC Hgb Hct MCV MCHC RDW Plt Count Lymph % (Auto) Loving % (Auto) Eos % (Auto) Lymph # (Auto) Loving # (Auto) Eos # (Auto) Seg Neutrophils % Seg Neuts % (Manual) Lymphocytes % (Manual) Monocytes % (Manual) Seg Neutrophils # Seg Neutrophils # Man Lymphocytes # (Manual) Monocytes # (Manual) PT INR ABG pH POC ABG pCO2 POC ABG pO2 ABG pO2 ABG HCO3 ABG O2 Saturation ABG Base Excess ABG Hemoglobin ABG Oxyhemoglobin ABG Sodium ABG Potassium ABG Chloride ABG Glucose Oxyhemoglobin Sodium Potassium Chloride Carbon Dioxide BUN Creatinine Glucose POC Glucose 112 H Lactic Acid Calcium Phosphorus Magnesium Total Bilirubin AST ALT Alkaline Phosphatase Total Protein Albumin Triglycerides Arterial Blood Glucose Arterial Blood Ionized Calcium Digoxin Crossmatch Allied health notes reviewed: nursing
[2021-02-03] MEDS: MORPHINE 2 MG/1 ML INJ IV PRN (13:31)
[2021-02-03] MEDS: EPOETIN ALFA-EPBX 10,000 UNIT/1 ML VIAL SUB-Q PRN (13:32)
--- NOTE | 2021-02-03 15:45 | Progress Note ---
Assessment and Plan Severe Sepsis with shock Streptococcus bovis bacteremia/Prevotella bacteremia Gwendolyn albicans tracheal aspirate Small bowel obstruction/necrotic bowel s/p ex lap with extensive lysis of adhesions, 2 small bowel resections with primary anastomosis, right hemicolectomy, jejunal colonic anastomosis, segmental small bowel resection Postoperative ileus Atrial fibrillation with RVR Leukocytosis Hypochloremia Gwendolyn albicans in tracheal aspirate from 12/24 ESRD on PD, PermCath to be placed Transaminitis Systolic CHF(EF 35%) Crohn's disease Hypertension -[facility], surgery, infectious disease, nephrology, vascular surgery, cardiology consulted, appreciate recommendations -12/24 S/p ex lap with extensive expectations, 2 small bowel resections with primary anastomosis with surgery on 12/23 -s/p PICC and Permacath placement with vascular surgery on 12/27 -Extubated on 12/28, reintubated 12/31 for respiratory distress and extubated 01/08 -12/29 echocardiogram shows moderate concentric LVH, small pericardial effusion, transmitral Doppler flow pattern is grade 1 abnormal relaxation pattern, left- ventricular systolic function normal, LVEF 50 to 55%, no wall motion abnormalities. -01/01 CT abdomen/pelvis shows small pericardial effusion, mild coronary artery atherosclerotic calcification, small bilateral pleural effusions with associated volume loss, no convincing evidence of bowel obstruction or inflammation, postoperative changes from interval/recent midline laparotomy with a moderate amount of free fluid throughout the abdomen, small amount of dependent free air presumably postoperative -01/02 s/p ex lap, resection of perforated anastamosis, washout and abthera wound vac placement. -01/04 s/p ex lap with right hemicolectomy. -01/06 s/p exploratory laparotomy, Jejunal colonic anastomosis, Segmental small bowel resection. -s/p Vasopressor support with Levophed and vasopressin -Transitioned to HD from PD -HD per nephro, Epogen with HD -Strict NPO -cont TPN, Octreotide drip -s/p NGT to LIWS, now placed on G-tube for decompression - s/p rectal tube -s/p IV antibiotics -Tobacco abuse cessation counseling -Trend CBC, BMP DVT/GI prophylaxis: PPI, heparin subcu, SCDs to bilateral lower extremities while in bed Brief Course: This is a 60 YO Male with ESRD on PD, GERD, Crohn's Disease, Nicotine Dependence, HTN, Systolic CHF(EF 35%) who presented to the emergency department on 12/22 with complaints of abdominal pain which began shortly after eating fast food rated 10/10 which is periumbilical, constant, associated with fever, nausea and multiple sites of vomiting and self-reported inability to undergo PD. In the emergency room patient underwent a CT scan of the abdomen/pelvis which revealed evidence of partial small bowel obstruction, symptoms were consistent with bacterial peritonitis. Patient was admitted to the hospital service with sepsis, peritonitis, and small bowel obstruction with consults to general surgery, nephrology, infectious disease and [facility]. Daily clinical course: 12/23. Patient had temperature 101.2 F, tachycardia and elevated lactic acid on admission. Meet sepsis criteria. Started on IV antibiotics. ID has been consulted. Surgery consulted this a.m.-advised laparoscopy. He remains on NG tube connected to suction. 12/24. Patient was noted to have peritonitis yesterday and patient undergoing exploratory laparotomy. Patient remained intubated after procedure and is in ICU. Now on broad-spectrum antibiotics. ID on board. 12/25. Remains mechanically ventilated and sedated. Temp 103 Fahrenheit. Antibiotics broadened-ID added fluconazole and Flagyl. Blood cultures ordered. Plan to repeat CT abdomen tomorrow if not better. Surgery following. 12/26: Patient remains on mechanical ventilation on CMV tidal line 550, rate of 14, PEEP of 8 and 30% FiO2 and sedated on fentanyl 4 micrograms. Today we will remove his Jeffery and [facility] dropped his rate controlled him on CPAP. We will trend CBC given recent drop in H/H. 12/27: Patient remains intubated on CMV tidal volume 550, rate 12, PEEP 8 on 30% FiO2 at the time my examination. Patient's TPN will be changed to PPN. Patient's fentanyl drip will be changed to IV push fentanyl and have a permacath placed today and midline. Patient was placed on a spontaneous breathing trial was switched back to CMV prior to procedure. 12/28: Patient on fentanyl but awake and follows commands. At the time of my examination he was on a CPAP trial and is scheduled to receive HD today. s/o permacath and PICC placement with vascular yesterday. His blood culture grew Prevotella and addition to Streptococcus bovis. This evening Dr. Spicer attempted to extubate the patient and his heart rate went to the 180s. Stat EKG obtained and cardiology consulted. 12/29: Patient was started on amiodarone IV for A. fib RVR yesterday and today he is more rate controlled into the 70s and 80s. Patient was extubated yesterday and is currently on Ventimask. Patient will be transferred to [facility]. Patient continues to be n.p.o. with TPN and NG tube to LIS. He is hypokalemic today which was repleted. 12/30; patient was on IV amiodarone for treatment with RVR, rate is controlled. Patient was off oxygen. patient is n.p.o. and on TPN. Surgery is following the patient. 12/31: Patient was intubated overnight for respiratory distress and this morning on examination he was on assist control tidal volume 450, rate 20, PEEP 6, 100% FiO2 and RT was getting a ABG to adjust vent settings. Patient had a acute bump in WBC and per ID recommendations we will obtain a CT abdomen/pelvis if leukocytosis persist. Patient is on TPN and sedated with Levophed. Patient is also on vasopressor support with Levophed. Per surgery his ileus is resolving however will maintain OGT to LIWS. 01/01: Patient was started on a vasopressin yesterday late evening. This morning patient is on 20 mcg of Levophed and 0.03 vasopressin and sedated on 20 mcg of propofol. Patient WBC increased today and he is hypokalemic. We will treat hyperkalemia. Patient had a CT chest and abdomen/pelvis pending. The time examination total of 450, rate 20, PEEP of 6 and 35 percent FiO2. Per RN, Dr Pollock has stated that the patient will be returning to the OR today for likely anastomosis seen on CT abdomen/pelvis. 01/02: Patient noted, WBC improving, but noted to have anemia, will transfuse additional unit of Blood and repeat H/H. continue supportive care. 01/03: Continue to wean pressors, ABX PER ID, patient to return to OR today for washout and possible closure, CONTINUE TPN /12: Continues to show some improvement. Today is POD#12 s/p ex lap with extensive lysis of adhesions and two small bowel resections with primary anastamosis for SBO with necrotic segment small bowel. POD#3 s/p ex lap, resection of perforated anastamosis, washout and abthera wound vac placement. POD#1 s/p ex lap with right hemicolectomy. Surgery planning to take back to the OR on Saturday with the hope to anastamos ileum to transverse colon and close abdomen. keep NGT to suction. Pt in deep sedation due to open abdomen. Per ID - Continue IV Zosyn, renally dosed for Strep bacteremia treatment till 01/06/2021 -On TPN 01/05: Patient continues on HD, anticipate return to OR tomorrow for closure and anastemosis. Continues with deep sedation due to open abdomen 01/06: Continue supportive care, monitor pressures and electrolytes. He is post op Exploratory laparotomy, 2. Jejunal colonic anastomosis,3. Segmental small bowel resection and anastemosis closure today. Continue wound vac 01/07: Continue supportive care, Today is POD#15 s/p ex lap with extensive lysis of adhesions and two small bowel resections with primary anastamosis for SBO with necrotic segment small bowel. POD#6 s/p ex lap, resection of perforated anastamosis, washout and abthera wound vac placement. POD#4 s/p ex lap with right hemicolectomy. POD #1 exploratory laparotomy, 2. Jejunal colonic anastomosis,3. Segmental small bowel resection. Continue to monitor and correct electrolytes. Patient remains on fentanyl and TPN with lipids. Still hypoactive bowel sounds. 16: Patient now extubated, asked when he can go home, Still lethargic. Continue wound management, wound vac, Will need Rehab eval prior to discharge. 01/09: Patient remains on TPN, was started on labetalol drip per cardiology, patient had uncontrolled hypertension today however he cannot be given p.o. medications ileus resolves per surgery. Patient received hemodialysis today. NG tube remains to low intermittent suction. 01/10: Patient has some leukocytosis, slight hypokalemia and hyponatremia, metabolic acidosis. NG tube to LIWS, continue TPN. Patient will be downgraded to IMCU today. [facility] is working on placement. Will change frequency of hydralazine and discontinue labetalol drip. We will obtain a.m. BMP/mag/Phos and CBC. Infectious disease will like to start Zosyn if leukocytosis continues to worsen. 01/11: Patient leukocytosis has slightly improved potassium with in normal limits and other electrolytes are elevated but patient is scheduled for HD today. Remains on RA and A,A,Ox4. BP better controlled but remains elevated and we will increase clonidine dose. 01/12/2021; patient's blood pressure is better after dialysis and as needed IV medications and clonidine patch. Patient is followed by general surgery. Patient was alert and oriented and asked when he is going home. 01/13: Surgery is concerned about a leak at his anastamosis given increased output and will treat as controlled fistula and start an octreotide drip. And per surgery if he requires operative intervention will likely need to be left in discontinuity and eventual ileostomy as he has already failed two anastamoses. Patient still has tongue swelling and slurred speech. He is on Benadryl. 01/14: Patient's tongue swelling is improved, patient is alert and oriented, CAM ICU negative. Continue NG tube to low wall intermittent suction. Leukocytosis is improving. Hypomagnesemia resolved. Epogen with HD 01/15: Patient tongue swelling is much improved, bladder scan completed by bedside RN and he needed to be straight cathed. NGT output decreased. Leukocytos is improving. Patient has been having episodes of hypoglycemia during the day and he is on cyclic TPN, Lantus rescheduled to nightly and dosage decreased. 01/16: Continue management per ID and surgery. Will defer repeat CT of the abdomen to the team surgery has been approved by nephrology. Continue current diet and advance all to ice if okay with surgery discussed with nursing staff. 01/17: Discussed surgical recommendation of strict n.p.o. except for small amount of ice as patient has already failed to anastomosis. And risk for additional surgery with tissues were extremely friable from previous scar. He continues on octreotide drip to slow down GI output HARIS drain remains in place with NG suction for decompression. Patient verbalized understanding although stressed about being discharged. We will continue IMCU care unless otherwise advised by surgery. Prognosis remains guarded continue to monitor electrolytes considering GI output. 01/18: Continue supportive care, BP mildly elevated, continue to monitor, continue current therapy, if no return to PO soon may consider Increasing clonidine to 0.3, PO when ok with surgery. 01/19:Continue supportive care, Per ID continue IV Zosyn, plan to stop at 3 weeks from last surgery end date: 01/24/2021. Other management per surgery. Continue TPN. 01/20: Discussed with Surgery, will continue current management. Advised patient of the findings and plan. 01/21: Continue supportive care. Continue management per surgery advance diet when okay with surgery. Plan of care discussed with the patient in detail. 01/22: NG tube to be replaced explained to the patient why this is important. I agree with PT OT discussed with nursing staff very important to let the PT team know that they should manage HARIS drain while patient is ambulating so that he does not come out. Continue current management. Change in ocreotide to q8h and d/c drip NOTED 01/23: Continue supportive care, HD today, counselling provided to the patient on compliance with medical management 01/24: Replace NGT, Continue management per Surgery. POD 32. Mild hypokalemia noted, will replace. 01/25: Brief summary patient is a 60-year-old male admitted with abdominal pain and noted to have necrotic bowel concerning for PD associated peritonitis. Cat heter was placed to convert to HD. Patient also underwent multiple surgical interventions. Initial cultures showed Streptococcus bovis bacteremia and Prevotella bacteremia a COLIN was without vegetations repeat blood cultures have been negative. Part of the surgery is included ex lap, resection of perforated anastomosis, washout and a better wound VAC placement on 01/01. While progress has remained slow if has indeed shown some improvement. Patient is agitated about being in the hospital but understands the care management been provided his vital to his health and to prevent further surgeries. The NG tube has been pulled out 2 days ago he vehemently refused the tube being placed back but after a day of nausea with associated vomiting he was accepting of the chest tube to put back. He continues on TPN. We will continue to monitor electrolytes and correct as needed. This a.m. and erroneous blood was obtained likely from the same line as TPN repeat was done which showed normalizing factors. Patient completed antibiotics on 01/25/2020 . 01/26 Patient with severe sepsis with septic shock, small bowel obstruction, necrotic bowel s/p multiple surgeries. He complains of abdominal pain. No fever currently. He asked me when is he going home and i explained that he is not yet stable for discharge 01/27 Patient with severe sepsis with septic shock, small bowel obstruction, necrotic bowel s/p multiple surgeries. He complains of abdominal pain. No fever currently. Paroxysmal atrial fib managed by cardiology 01/28 Patient with severe sepsis with septic shock, small bowel obstruction, necrotic bowel s/p multiple surgeries. No fever currently. No abd pain curren tly. I discussed with Surgeon, Dr. Pollock. Continue current management. He also has paroxysmal afib, managed by Cardiology. 01/29 Patient with severe sepsis with septic shock, small bowel obstruction, necrotic bowel s/p multiple surgeries. No fever currently. No abd pain currently. I discussed with Surgeon, Dr. Pollock, yesterday. Continue current management. He also has paroxysmal afib, managed by Cardiology. He is on Metoprolol, Digoxin, Clonidine 01/30 Patient with severe sepsis with septic shock, small bowel obstruction, necrotic bowel s/p multiple surgeries. Patient is a 60-year-old male admitted with abdominal pain and noted to have necrotic bowel concerning for PD associated peritonitis. Catheter was placed to convert to HD. Patient also underwent multiple surgical interventions. Initial cultures showed Streptococcus bovis bacteremia and Prevotella bacteremia a COLIN was without vegetations repeat blood cultures have been negative. Part of the surgery is included ex lap, resection of perforated anastomosis, washout and a better wound VAC placement on 01/01. While progress has remained slow if has indeed shown some improvement. Patient is agitated about being in the hospital but understands the care management been provided his vital to his health and to prevent further surgeries. He continues on TPN. No fever currently. Less abdominal pain. I discussed with Surgeon, Dr. Pollock, few days ago. Continue current management. He also has paroxysmal afib, managed by Cardiology. He is on Metoprolol, Digoxin, Clonidine. ESRD on dialysis managed by Nephrology. 01/31: Continue HARIS drain suction. Ongoing treatment for anastomotic leak/controlled low output fistula. Maintain LIWS to NGT and monitor output. continue q 8h ocreotide. cont TPN. Defer to general surgery for NG tube discontinuation. 02/01: planned for g-tube placement for gastric decompression. Removed NG tube today. S/p HD -tolerated well : Status post G-tube placement today, resume TPN, patient is off from rectal tube. Continue supportive care and follow general surgery recommendation for discharge planning. Hemodialysis per schedule 02/03: cont TPN, G-tube suction, Continue supportive care and follow general surgery recommendation for discharge planning. Hemodialysis per schedule Subjective Date of service: 02/03/21 Principal diagnosis: Ac hypoxemic resp failure; Severe Sepsis; Peritonitis; Acute SBO; ESRD; CHF Interval history: Patient seen and examined. Medical records and medication list reviewed. No acute event overnight noted by the RN. Patient denies any chest pain or difficulty breathing. Patient remains on TPN Patient getting HD Discussed plan of care at bedside with patient. Objective - Exam Narrative Exam: Gen:Not in acute distress, lying in bed HEENT:Normocephalic , Neck:supple, no JVD Lungs:Clear to auscultation bilat, no rales Heart:S1 and S2 reg, no murmurs, no rubs or gallop Abd: covered with dressing, HARIS drain, decreased bowel sounds, G-tube in place Ext: No edema, no clubbing, no cyanosis Neuro:Awake,alert,oriented X3, moves all extremities psych: Calm, co-operative - Constitutional Vitals: Vital Signs - 12hr 02/03/21 02/03/21 02/03/21 04:34 06:49 07:47 Temperature 98.6 F 98.1 F Pulse Rate 64 64 67 Respiratory 18 20 Rate Blood Pressure 124/61 130/65 Blood Pressure 124/61 [Right] O2 Sat by Pulse 100 94 Oximetry 02/03/21 14:42 Temperature 98.9 F Pulse Rate 83 Respiratory 18 Rate Blood Pressure 108/54 Blood Pressure [Right] O2 Sat by Pulse 100 Oximetry - Labs CBC & Chem 7: 01/27/21 04:19 02/02/21 03:25 Labs: Abnormal lab results 02/02/21 02/02/21 02/03/21 Range/Units 17:29 21:53 04:50 POC Glucose 115 H 120 H (70-105) mg/dL Magnesium 1.60 L (1.7-2.3) mg/dL 02/03/21 Range/Units 06:12 POC Glucose 112 H (70-105) mg/dL Magnesium (1.7-2.3) mg/dL HEART Score - HEART Score Troponin: Troponin T 0.021 ng/mL (0.00-0.029) 12/22/20 14:38
--- NOTE | 2021-02-03 16:20 | Progress Note ---
Assessment and Plan POD#41 s/p ex lap with extensive lysis of adhesions and two small bowel resections with primary anastamosis for SBO with necrotic segment small bowel. POD#32 s/p ex lap, resection of perforated anastamosis, washout and abthera wound vac placement. POD#30 s/p ex lap with right hemicolectomy. POD#28 s/p ex lap, with jejunal-colonic anastamosis and closure of abdomen. Afebrile and stable. - concerned about a leak at his anastamosis. Clinically improved with decreased output that is becoming more serous. Blood supply was evaluated at time of last surgery with ICG and found to be adequate. Pt was on several days of steroids for tongue swelling which may have contributed to leak. Currently since he is stable and afebrile will treat like controlled fistua. He is extremely high risk for additional surgery with tissues that are extremely friable and previous scar tissue that makes his anatomy very difficult to manipulate. If he requires operative intervention will likely need to be left in discontinuity and eventual ileostomy as he has already failed two anastamoses. Continue HARIS drain suction. HARIS drain must be secured and kept in place. Since HARIS drain has continued to decrease over the last several days, will maintain lower dose of octreotide. continue g-tube to drainage for decompression. will allow ice water and monitor HARIS drain output. Subjective Date of service: 02/03/21 Narrative: no acute events overnight. Pt tolerated dialysis earlier. NGT removed and g-tube is to gravity drainage. Pt denies nausea or vomiting at this time. Objective Vital Signs - 12hr 02/03/21 02/03/21 02/03/21 04:34 06:49 07:47 Temperature 98.6 F 98.1 F Pulse Rate 64 64 67 Respiratory 18 20 Rate Blood Pressure 124/61 130/65 Blood Pressure 124/61 [Right] O2 Sat by Pulse 100 94 Oximetry 02/03/21 02/03/21 02/03/21 10:00 10:15 10:30 Temperature 98.9 F Pulse Rate 63 71 76 Respiratory 18 Rate Blood Pressure 141/76 124/62 135/67 Blood Pressure [Right] O2 Sat by Pulse Oximetry 02/03/21 02/03/21 02/03/21 10:45 11:00 11:15 Temperature Pulse Rate 82 83 80 Respiratory Rate Blood Pressure 128/67 129/54 125/62 Blood Pressure [Right] O2 Sat by Pulse Oximetry 02/03/21 02/03/21 02/03/21 11:30 11:45 12:00 Temperature Pulse Rate 85 78 83 Respiratory Rate Blood Pressure 131/63 128/64 131/58 Blood Pressure [Right] O2 Sat by Pulse Oximetry 02/03/21 02/03/21 02/03/21 12:15 12:30 12:45 Temperature Pulse Rate 60 62 76 Respiratory Rate Blood Pressure 129/67 124/60 141/52 Blood Pressure [Right] O2 Sat by Pulse Oximetry 02/03/21 02/03/21 02/03/21 13:00 13:15 13:30 Temperature Pulse Rate 78 83 80 Respiratory Rate Blood Pressure 125/64 122/64 138/52 Blood Pressure [Right] O2 Sat by Pulse Oximetry 02/03/21 02/03/21 02/03/21 13:45 14:00 14:10 Temperature 98.0 F Pulse Rate 77 78 78 Respiratory 18 Rate Blood Pressure 120/61 115/62 120/64 Blood Pressure [Right] O2 Sat by Pulse Oximetry 02/03/21 02/03/21 14:42 15:50 Temperature 98.9 F Pulse Rate 83 83 Respiratory 18 Rate Blood Pressure 108/54 108/58 Blood Pressure [Right] O2 Sat by Pulse 100 Oximetry - General physical appearance well developed, no distress, no pain - Respiratory normal expansion, normal respiratory effort - Abdomen soft, not tender, other (good shally granulation tissue at midline, HARIS drain with brown drainage 12ml recorded last 24 hours, g-tube bilious.) - Labs 01/27/21 04:19 02/02/21 03:25 Calcium panel 02/03/21 Range/Units 04:50 Phosphorus 2.90 D (2.5-4.5) mg/dL
--- NOTE | 2021-02-03 18:31 | Progress Note ---
Assessment and Plan Assessment: * ESRD previously on peritoneal dialysis; now on back up HD (on peritoneal dialysis for 2 years) * Small bowel obstruction --s/p ex-lap with jejuno-ileal anastamosis --s/p ex lap with extensive lysis of adhesions and two small bowel resections with primary anastamosis for SBO with necrotic segment small bowel. --s/p ex lap, resection of perforated anastamosis, washout and abthera wound vac placement. --s/p ex lap with right hemicolectomy. * Acute respiratory failure * Septic shock - resolved * Bacteremia - resolved * Hyperkalemia * Anemia of ESRD * Atrial fibrilation, new onset * Post op ileus Plan: * Continue HD MWF via left IJ permcath (12/27); due today * 3K bath with dialysis * UF as tolerated * Epogen 10k units prn w/ dialysis * Rate control per cardiology * Abx per primary team/ID * Nutrition per primary team * Maintain MAP >65 * Surgery, pulm notes appreciated * He will also require outpatient hemodialysis chair prior to discharge * His BUN is much improved. Most likely due to hypercatabolic state. Continue 4-hour of dialysis Subjective Date of service: 02/03/21 Principal diagnosis: Ac hypoxemic resp failure; Severe Sepsis; Peritonitis; Acute SBO; ESRD; CHF Interval history: No acute events noted, resting this AM Objective - Exam Narrative Exam: - General Limitations: Physical Limitation General appearance: no acute distress - Head Head exam: Present: atraumatic, normocephalic - Eye Eye exam: Present: normal appearance, EOMI - Neck Neck exam: Present: normal inspection - Respiratory Respiratory exam: normal breathing patterns - Cardiovascular Cardiovascular Exam: Present: normal rhythm, tachycardia - GI/Abdominal GI/Abdominal exam: Present: soft, distended (slightly), tenderness (periumbilical ) - Extremities Exam Extremities exam: Present: normal inspection; LIJ CVC noted - Neurological Exam Neurological exam: sedated - Psychiatric Psychiatric exam: opens eyes - Skin Skin exam: Present: warm, dry, intact, normal color - Vital Signs Vital signs: Vital Signs - 12hr 02/03/21 02/03/21 02/03/21 06:49 07:47 10:00 Temperature 98.1 F 98.9 F Pulse Rate 64 67 63 Respiratory 20 18 Rate Blood Pressure 124/61 130/65 141/76 O2 Sat by Pulse 94 Oximetry 02/03/21 02/03/21 02/03/21 10:15 10:30 10:45 Temperature Pulse Rate 71 76 82 Respiratory Rate Blood Pressure 124/62 135/67 128/67 O2 Sat by Pulse Oximetry 02/03/21 02/03/21 02/03/21 11:00 11:15 11:30 Temperature Pulse Rate 83 80 85 Respiratory Rate Blood Pressure 129/54 125/62 131/63 O2 Sat by Pulse Oximetry 02/03/21 02/03/21 02/03/21 11:45 12:00 12:15 Temperature Pulse Rate 78 83 60 Respiratory Rate Blood Pressure 128/64 131/58 129/67 O2 Sat by Pulse Oximetry 02/03/21 02/03/21 02/03/21 12:30 12:45 13:00 Temperature Pulse Rate 62 76 78 Respiratory Rate Blood Pressure 124/60 141/52 125/64 O2 Sat by Pulse Oximetry 02/03/21 02/03/21 02/03/21 13:15 13:30 13:45 Temperature Pulse Rate 83 80 77 Respiratory Rate Blood Pressure 122/64 138/52 120/61 O2 Sat by Pulse Oximetry 02/03/21 02/03/21 02/03/21 14:00 14:10 14:42 Temperature 98.0 F 98.9 F Pulse Rate 78 78 83 Respiratory 18 18 Rate Blood Pressure 115/62 120/64 108/54 O2 Sat by Pulse 100 Oximetry 02/03/21 02/03/21 15:50 17:08 Temperature Pulse Rate 83 Respiratory 18 Rate Blood Pressure 108/58 O2 Sat by Pulse Oximetry - Lab 01/27/21 04:19 02/02/21 03:25 Most recent lab results ABG pH 7.345 pH Units (7.350-7.450) L 01/07/21 17:14 ABG pCO2 40.3 mm Hg 01/07/21 17:14 ABG pO2 67.4 mm Hg (80.0-90.0) L 01/07/21 17:14 ABG HCO3 21.5 mmol/L (20.0-26.0) 01/07/21 17:14 ABG O2 Saturation 94.3 % (95.0-99.0) L 01/07/21 17:14 Calcium 8.6 mg/dL (8.4-10.2) 02/02/21 03:25 Phosphorus 2.90 mg/dL (2.5-4.5) D 02/03/21 04:50 Magnesium 1.60 mg/dL (1.7-2.3) L 02/03/21 04:50 Medications & Allergies - Medications Allergies/Adverse Reactions: Allergies No Known Allergies Allergy (Verified 06/09/20 15:27) Home Medications: Home Medications Medication Instructions Recorded Confirmed Last Taken Type Albuterol Mdi (or & Nicu Only) 2 puff IH QID PRN #1 inhalation 04/01/17 11/01/20 10/31/20 09:00 Rx [ProAir HFA Inhaler] Calcium Acetate 667 mg PO DAILY 04/20/20 11/01/20 10/31/20 09:00 History Centrum Men's Tablet 1 tab PO DAILY 04/20/20 11/01/20 10/31/20 09:00 History Cinacalcet 30 mg PO DAILY 04/20/20 11/01/20 10/31/20 09:00 History Dialyvite with Zinc Tablet 1 tab PO DAILY 04/20/20 11/01/20 10/31/20 09:00 History Magnesium 250 mg PO BID 04/20/20 11/01/20 10/31/20 17:00 History Triamcinolone 0.1% 1 1000units TRANSDERMA DAILY 04/20/20 11/01/20 10/31/20 09:00 History Vit B12/Folic Acid/B6/Aa No.15 1,000 mg PO DAILY 04/20/20 11/01/20 10/31/20 09:00 History amLODIPine 10 mg PO DAILY 06/09/20 11/01/20 10/31/20 09:00 History AtorvaSTATin 40 mg PO HS 11/01/20 11/01/20 10/31/20 21:00 History Benadryl 25 mg PO HS 11/01/20 11/01/20 10/31/20 21:00 History Diclofenac 1 TRANSDERMA QID 11/01/20 10/31/20 19:00 History Fluticasone Propionate 1 spray INTRANASAL DAILY 11/01/20 11/01/20 10/31/20 09:00 History Vitamin D3 2,000 units 11/01/20 10/31/20 09:00 History carvediloL 12.5 mg PO DAILY 11/01/20 11/01/20 10/31/20 09:00 History hydrALAZINE 100 mg PO TID 11/01/20 11/01/20 10/31/20 19:00 History Active Medications: Generic Name Dose Route Start Last Admin Trade Name Freq PRN Reason Stop Dose Admin Acetaminophen 650 mg 12/31/20 15:30 01/21/21 05:28 Acetaminophen 650 Mg Rect Supp [place] 650 mg Q6H PRN Administration Non Cardiac Pain or Temp>100.5 Clonidine HCl 0.2 mg 01/11/21 10:00 02/01/21 16:44 Clonidine Tts 0.2 Mg/24 Hr Patch TD 0.2 mg We THOMAS Administration Dextrose 50 ml 01/14/21 17:59 01/18/21 15:10 Dextrose 50% In Water (25gm) 50 Ml Syringe IV 20 ml Q30MIN PRN Administration Hypoglycemia Protocol Digoxin 0.125 mg 02/04/21 10:00 Digoxin 0.125 Mg Tab PO Q48HR THOMAS Diphenhydramine HCl 50 mg 01/20/21 10:10 02/01/21 14:15 Diphenhydramine 50 Mg/Ml Vial IV 50 mg Q6H PRN Administration Itching Famotidine 10 mg 12/24/20 13:00 02/03/21 10:57 Famotidine 20 Mg/2 Ml Inj IV Not Given BID THOMAS Haloperidol Lactate 5 mg 12/29/20 14:16 01/22/21 23:56 Haloperidol Lactate 5 Mg/1 Ml Inj IV 5 mg Q12H PRN Administration Agitation Heparin Sodium (Porcine) 5,000 unit 12/24/20 10:00 02/03/21 10:56 Heparin 5,000 Unit/1 Ml Vial SUB-Q Not Given Q12HR THOMAS Hydralazine HCl 10 mg 01/10/21 14:00 02/03/21 15:51 Hydralazine 20 Mg/1 Ml Inj IV Not Given Q4HR THOMAS Hydrocortisone Acetate 1 applic 02/01/21 18:43 Hydrocortisone 1% Cream 28.4gm TP Q8H PRN Skin Irritation Hydromorphone HCl 0.25 mg 01/09/21 10:53 02/03/21 04:51 Hydromorphone 1 Mg/1 Ml Inj IV 0.25 mg Q6H PRN Administration Pain , Severe (7-10) Sodium Chloride 100 mls @ 999 mls/hr 01/27/21 18:37 Nacl 0.9% IV [place] PRN Hypotension Octreotide Acetate 50 mcg/ 51 mls @ 100 mls/hr 02/01/21 22:00 02/03/21 15:50 Sodium Chloride IV 100 mls/hr Q8H THOMAS Administration Amino Acids/Electrolytes/Dextrose 2,016 mls @ 84 mls/hr 02/02/21 20:00 02/02/21 21:25 Tpn Adult IV 02/03/21 19:59 84 mls/hr [email or web address] [facility] Administration Protocol Fat Emulsion Intravenous 250 mls @ 21 mls/hr 02/03/21 20:00 Intralipid 20% IV 02/04/21 08:00 [email or web address] [facility] Amino Acids/Electrolytes/Dextrose 2,016 mls @ 84 mls/hr 02/03/21 20:00 Tpn Adult IV 02/04/21 19:59 [email or web address] [facility] Protocol Insulin Glargine 5 units 01/18/21 22:00 02/02/21 22:00 Insulin Glargine 100 Units/Ml SUB-Q 5 units QHS [facility] Administration Insulin Human Lispro 0 unit 01/03/21 12:00 02/03/21 15:51 Insulin Lispro 100 Unit/Ml SUB-Q Not Given Q6HR [facility] Protocol Metoprolol Tartrate 5 mg 12/30/20 12:00 02/03/21 15:50 Metoprolol Tartrate 5 Mg/5 Ml Inj IV Not Given Q4HR [facility] Morphine Sulfate 2 mg 02/02/21 12:00 02/03/21 13:31 Morphine 2 Mg/1 Ml Inj IV 2 mg Q3H PRN Administration Pain, Moderate (4-6) Ondansetron HCl 4 mg 01/25/21 11:56 02/02/21 21:41 Ondansetron 4 Mg/2 Ml Inj IV 4 mg Q4H PRN Administration Nausea And Vomiting Scopolamine 1 each 01/15/21 11:00 02/02/21 12:15 Scopolamine Transdermal Patch 72 Hr TD 1 each Q3D THOMAS Administration Sodium Chloride 10 ml 12/22/20 22:00 02/03/21 10:57 Sodium Chloride 0.9% 10 Ml Flush Syringe IV Not Given BID [facility] Sodium Chloride 10 ml 12/22/20 19:42 01/29/21 02:08 Sodium Chloride 0.9% 10 Ml Flush Syringe IV 10 ml PRN PRN Administration LINE FLUSH
[2021-02-03] MEDS ORDERED: TOTAL PARENTERAL NUTRITION 2,016 ML IV SCH (20:00)
[2021-02-03] MEDS ORDERED: FAT EMULSIONS 20% 250 ML IV SCH (20:00)
[2021-02-03] MEDS: INSULIN GLARGINE 100 UNITS/ML SUB-Q SCH (22:00)
[2021-02-04] MEDS: hydrALAZINE 20 MG/1 ML INJ IV SCH ×6 (02:00→21:48)
[2021-02-04] MEDS: METOPROLOL TARTRATE 5 MG/5 ML INJ IV SCH ×7 (02:00→21:51)
[2021-02-04] MEDS: OCTREOTIDE 50 MCG in SODIUM CHLORIDE 0.9% 50 ML IV SCH ×2 (06:03→14:26)
[2021-02-04 06:35] LABS: Calcium 8.4 mg/dL (8.4-10.2)
--- NOTE | 2021-02-04 09:26 | Progress Note ---
Assessment and Plan Assessment: * ESRD previously on peritoneal dialysis; now on back up HD (on peritoneal dialysis for 2 years) * Small bowel obstruction --s/p ex-lap with jejuno-ileal anastamosis --s/p ex lap with extensive lysis of adhesions and two small bowel resections with primary anastamosis for SBO with necrotic segment small bowel. --s/p ex lap, resection of perforated anastamosis, washout and abthera wound vac placement. --s/p ex lap with right hemicolectomy. * Acute respiratory failure * Septic shock - resolved * Bacteremia - resolved * Hyperkalemia * Anemia of ESRD * Atrial fibrilation, new onset * Post op ileus Plan: * Continue HD MWF via left IJ permcath (12/27); had yesterday, next due 02/06, no indication for HD today * 3K bath with dialysis given low K, ok to replete prn * UF as tolerated * Epogen 10k units prn w/ dialysis * Rate control per cardiology * Abx per primary team/ID * Nutrition per primary team * Maintain MAP >65 * Surgery, pulm notes appreciated * He will also require outpatient hemodialysis chair prior to discharge * His BUN is much improved. Most likely due to hypercatabolic state. Continue 4-hour of dialysis Subjective Date of service: 02/04/21 Principal diagnosis: Ac hypoxemic resp failure; Severe Sepsis; Peritonitis; Acute SBO; ESRD; CHF Interval history: No acute events noted, resting this AM Objective - Exam Narrative Exam: - General Limitations: Physical Limitation General appearance: no acute distress - Head Head exam: Present: atraumatic, normocephalic - Eye Eye exam: Present: normal appearance, EOMI - Neck Neck exam: Present: normal inspection - Respiratory Respiratory exam: normal breathing patterns - Cardiovascular Cardiovascular Exam: Present: normal rhythm, tachycardia - GI/Abdominal GI/Abdominal exam: Present: soft, distended (slightly), tenderness (periumbilical ) - Extremities Exam Extremities exam: Present: normal inspection; LIJ CVC noted - Neurological Exam Neurological exam: sedated - Psychiatric Psychiatric exam: opens eyes - Skin Skin exam: Present: warm, dry, intact, normal color - Vital Signs Vital signs: Vital Signs - 12hr 02/03/21 02/03/21 02/04/21 22:00 23:48 02:00 Temperature 99.2 F Pulse Rate 76 70 74 Respiratory 18 Rate Blood Pressure 118/56 125/61 119/56 O2 Sat by Pulse 97 Oximetry 02/04/21 02/04/21 02/04/21 04:32 06:04 06:07 Temperature 99.1 F Pulse Rate 79 79 79 Respiratory 18 Rate Blood Pressure 123/62 123/62 123/62 O2 Sat by Pulse 100 Oximetry 02/04/21 07:41 Temperature 98.5 F Pulse Rate 72 Respiratory 16 Rate Blood Pressure 121/66 O2 Sat by Pulse 100 Oximetry - Lab 01/27/21 04:19 02/04/21 05:40 Most recent lab results ABG pH 7.345 pH Units (7.350-7.450) L 01/07/21 17:14 ABG pCO2 40.3 mm Hg 01/07/21 17:14 ABG pO2 67.4 mm Hg (80.0-90.0) L 01/07/21 17:14 ABG HCO3 21.5 mmol/L (20.0-26.0) 01/07/21 17:14 ABG O2 Saturation 94.3 % (95.0-99.0) L 01/07/21 17:14 Calcium 8.4 mg/dL (8.4-10.2) 02/04/21 05:40 Phosphorus 2.40 mg/dL (2.5-4.5) L 02/04/21 05:40 Magnesium 1.50 mg/dL (1.7-2.3) L 02/04/21 05:40 Medications & Allergies - Medications Allergies/Adverse Reactions: Allergies No Known Allergies Allergy (Verified 06/09/20 15:27) Home Medications: Home Medications Medication Instructions Recorded Confirmed Last Taken Type Albuterol Mdi (or & Nicu Only) 2 puff IH QID PRN #1 inhalation 04/01/17 11/01/20 10/31/20 09:00 Rx [ProAir HFA Inhaler] Calcium Acetate 667 mg PO DAILY 04/20/20 11/01/20 10/31/20 09:00 History Centrum Men's Tablet 1 tab PO DAILY 04/20/20 11/01/20 10/31/20 09:00 History Cinacalcet 30 mg PO DAILY 04/20/20 11/01/20 10/31/20 09:00 History Dialyvite with Zinc Tablet 1 tab PO DAILY 04/20/20 11/01/20 10/31/20 09:00 History Magnesium 250 mg PO BID 04/20/20 11/01/20 10/31/20 17:00 History Triamcinolone 0.1% 1 1000units TRANSDERMA DAILY 04/20/20 11/01/20 10/31/20 09:00 History Vit B12/Folic Acid/B6/Aa No.15 1,000 mg PO DAILY 04/20/20 11/01/20 10/31/20 09:00 History amLODIPine 10 mg PO DAILY 06/09/20 11/01/20 10/31/20 09:00 History AtorvaSTATin 40 mg PO HS 11/01/20 11/01/20 10/31/20 21:00 History Benadryl 25 mg PO HS 11/01/20 11/01/20 10/31/20 21:00 History Diclofenac 1 TRANSDERMA QID 11/01/20 10/31/20 19:00 History Fluticasone Propionate 1 spray INTRANASAL DAILY 11/01/20 11/01/20 10/31/20 09:00 History Vitamin D3 2,000 units 11/01/20 10/31/20 09:00 History carvediloL 12.5 mg PO DAILY 11/01/20 11/01/20 10/31/20 09:00 History hydrALAZINE 100 mg PO TID 11/01/20 11/01/20 10/31/20 19:00 History Active Medications: Generic Name Dose Route Start Last Admin Trade Name Freq PRN Reason Stop Dose Admin Acetaminophen 650 mg 12/31/20 15:30 01/21/21 05:28 Acetaminophen 650 Mg Rect Supp [place] 650 mg Q6H PRN Administration Non Cardiac Pain or Temp>100.5 Clonidine HCl 0.2 mg 01/11/21 10:00 02/01/21 16:44 Clonidine Tts 0.2 Mg/24 Hr Patch TD 0.2 mg We THOMAS Administration Dextrose 50 ml 01/14/21 17:59 01/18/21 15:10 Dextrose 50% In Water (25gm) 50 Ml Syringe IV 20 ml Q30MIN PRN Administration Hypoglycemia Protocol Digoxin 0.125 mg 02/04/21 10:00 Digoxin 0.125 Mg Tab PO Q48HR THOMAS Diphenhydramine HCl 50 mg 01/20/21 10:10 02/01/21 14:15 Diphenhydramine 50 Mg/Ml Vial IV 50 mg Q6H PRN Administration Itching Famotidine 10 mg 12/24/20 13:00 02/03/21 22:00 Famotidine 20 Mg/2 Ml Inj IV 10 mg BID THOMAS Administration Haloperidol Lactate 5 mg 12/29/20 14:16 01/22/21 23:56 Haloperidol Lactate 5 Mg/1 Ml Inj IV 5 mg Q12H PRN Administration Agitation Heparin Sodium (Porcine) 5,000 unit 12/24/20 10:00 02/03/21 22:00 Heparin 5,000 Unit/1 Ml Vial SUB-Q 5,000 unit Q12HR THOMAS Administration Hydralazine HCl 10 mg 01/10/21 14:00 02/04/21 06:04 Hydralazine 20 Mg/1 Ml Inj IV 10 mg Q4HR THOMAS Administration Hydrocortisone Acetate 1 applic 02/01/21 18:43 Hydrocortisone 1% Cream 28.4gm TP Q8H PRN Skin Irritation Hydromorphone HCl 0.25 mg 01/09/21 10:53 02/03/21 04:51 Hydromorphone 1 Mg/1 Ml Inj IV 0.25 mg Q6H PRN Administration Pain , Severe (7-10) Sodium Chloride 100 mls @ 999 mls/hr 01/27/21 18:37 Nacl 0.9% IV [place] PRN Hypotension Octreotide Acetate 50 mcg/ 51 mls @ 100 mls/hr 02/01/21 22:00 02/04/21 06:03 Sodium Chloride IV 100 mls/hr Q8H THOMAS Administration Amino Acids/Electrolytes/Dextrose 2,016 mls @ 84 mls/hr 02/03/21 20:00 02/03/21 20:57 Tpn Adult IV 02/04/21 19:59 84 mls/hr DAILY@[email or web address] [facility] Administration Protocol Insulin Glargine 5 units 01/18/21 22:00 02/03/21 22:00 Insulin Glargine 100 Units/Ml SUB-Q 5 units QHS [facility] Administration Insulin Human Lispro 0 unit 01/03/21 12:00 02/04/21 00:00 Insulin Lispro 100 Unit/Ml SUB-Q Not Given Q6HR [facility] Protocol Metoprolol Tartrate 5 mg 12/30/20 12:00 02/04/21 06:07 Metoprolol Tartrate 5 Mg/5 Ml Inj IV 5 mg Q4HR THOMAS Administration Morphine Sulfate 2 mg 02/02/21 12:00 02/03/21 13:31 Morphine 2 Mg/1 Ml Inj IV 2 mg Q3H PRN Administration Pain, Moderate (4-6) Ondansetron HCl 4 mg 01/25/21 11:56 02/02/21 21:41 Ondansetron 4 Mg/2 Ml Inj IV 4 mg Q4H PRN Administration Nausea And Vomiting Scopolamine 1 each 01/15/21 11:00 02/02/21 12:15 Scopolamine Transdermal Patch 72 Hr TD 1 each Q3D THOMAS Administration Sodium Chloride 10 ml 12/22/20 22:00 02/03/21 22:00 Sodium Chloride 0.9% 10 Ml Flush Syringe IV 10 ml BID THOMAS Administration Sodium Chloride 10 ml 12/22/20 19:42 01/29/21 02:08 Sodium Chloride 0.9% 10 Ml Flush Syringe IV 10 ml PRN PRN Administration LINE FLUSH
[2021-02-04] MEDS: INSULIN LISPRO 100 UNIT/ML SUB-Q SCH ×4 (09:37→17:37)
[2021-02-04] MEDS: DIGOXIN 0.125 MG TAB PO SCH (09:40)
[2021-02-04] MEDS: FAMOTIDINE 20 MG/2 ML INJ IV SCH ×2 (09:41→21:49)
[2021-02-04] MEDS: HEPARIN 5,000 UNIT/1 ML VIAL SUB-Q SCH ×2 (09:42→21:49)
[2021-02-04 10:25] LABS: Calcium 8.9 mg/dL (8.4-10.2)
[2021-02-04] MEDS ORDERED: OCTREOTIDE 50 MCG/1 ML INJ IV ONE (15:21)
--- NOTE | 2021-02-04 15:26 | Progress Note ---
Assessment and Plan POD#42 s/p ex lap with extensive lysis of adhesions and two small bowel resections with primary anastamosis for SBO with necrotic segment small bowel. POD#33 s/p ex lap, resection of perforated anastamosis, washout and abthera wound vac placement. POD#31 s/p ex lap with right hemicolectomy. POD#29 s/p ex lap, with jejunal-colonic anastamosis and closure of abdomen. Afebrile and stable. - concerned about a leak at his anastamosis. Clinically improved with decreased output that is becoming more serous. Blood supply was evaluated at time of last surgery with ICG and found to be adequate. Pt was on several days of steroids for tongue swelling which may have contributed to leak. Currently since he is stable and afebrile will treat like controlled fistua. He is extremely high risk for additional surgery with tissues that are extremely friable and previous scar tissue that makes his anatomy very difficult to manipulate. If he requires operative intervention will likely need to be left in discontinuity and eventual ileostomy as he has already failed two anastamoses. Continue HARIS drain suction. HARIS drain must be secured and kept in place. Since HARIS drain has continued to stay about 10ml over the last several days, will lower dose of octreotide. continue g-tube to drainage for decompression. will start clear liquids and monitor HARIS drain output. Subjective Date of service: 02/04/21 Narrative: no acute events. Pt denies nausea or vomiting. Pain is controlled. Objective Vital Signs - 12hr 02/04/21 02/04/21 02/04/21 04:32 06:04 06:07 Temperature 99.1 F Pulse Rate 79 79 79 Respiratory 18 Rate Blood Pressure 123/62 123/62 123/62 O2 Sat by Pulse 100 Oximetry 02/04/21 02/04/21 02/04/21 07:41 08:00 14:29 Temperature 98.5 F Pulse Rate 72 68 Respiratory 16 18 Rate Blood Pressure 121/66 126/60 O2 Sat by Pulse 100 Oximetry - General physical appearance well developed, no distress, no pain - Respiratory normal expansion, normal respiratory effort - Abdomen soft, not tender, other (HARIS drain with 10ml last 24 hours, g-tube with bilious drainage) - Labs 01/27/21 04:19 02/04/21 09:37 Diabetes panel 02/04/21 02/04/21 Range/Units 05:40 09:37 Sodium 131 L D 135 L (137-145) mmol/L Potassium 3.0 L 3.1 L (3.6-5.0) mmol/L Chloride 93.4 L 96.7 L (98-107) mmol/L Carbon Dioxide 25 26 (22-30) mmol/L BUN 46 H 52 H (9-20) mg/dL Creatinine 6.5 H 7.3 H (0.8-1.3) mg/dL Glucose 363 H 128 H (75-100) mg/dL Calcium 8.4 8.9 (8.4-10.2) mg/dL Calcium panel 02/04/21 02/04/21 Range/Units 05:40 09:37 Calcium 8.4 8.9 (8.4-10.2) mg/dL Phosphorus 2.40 L 2.50 (2.5-4.5) mg/dL Pituitary panel 02/04/21 02/04/21 Range/Units 05:40 09:37 Sodium 131 L D 135 L (137-145) mmol/L Potassium 3.0 L 3.1 L (3.6-5.0) mmol/L Chloride 93.4 L 96.7 L (98-107) mmol/L Carbon Dioxide 25 26 (22-30) mmol/L BUN 46 H 52 H (9-20) mg/dL Creatinine 6.5 H 7.3 H (0.8-1.3) mg/dL Glucose 363 H 128 H (75-100) mg/dL Calcium 8.4 8.9 (8.4-10.2) mg/dL Adrenal panel 02/04/21 02/04/21 Range/Units 05:40 09:37 Sodium 131 L D 135 L (137-145) mmol/L Potassium 3.0 L 3.1 L (3.6-5.0) mmol/L Chloride 93.4 L 96.7 L (98-107) mmol/L Carbon Dioxide 25 26 (22-30) mmol/L BUN 46 H 52 H (9-20) mg/dL Creatinine 6.5 H 7.3 H (0.8-1.3) mg/dL Glucose 363 H 128 H (75-100) mg/dL Calcium 8.4 8.9 (8.4-10.2) mg/dL
--- NOTE | 2021-02-04 16:41 | Progress Note ---
Assessment and Plan Severe Sepsis with shock Streptococcus bovis bacteremia/Prevotella bacteremia Gwendolyn albicans tracheal aspirate Small bowel obstruction/necrotic bowel s/p ex lap with extensive lysis of adhesions, 2 small bowel resections with primary anastomosis, right hemicolectomy, jejunal colonic anastomosis, segmental small bowel resection Postoperative ileus Atrial fibrillation with RVR Leukocytosis Hypochloremia Gwendolyn albicans in tracheal aspirate from 12/24 ESRD on PD, PermCath to be placed Transaminitis Systolic CHF(EF 35%) Crohn's disease Hypertension -[facility], surgery, infectious disease, nephrology, vascular surgery, cardiology consulted, appreciate recommendations -12/24 S/p ex lap with extensive expectations, 2 small bowel resections with primary anastomosis with surgery on 12/23 -s/p PICC and Permacath placement with vascular surgery on 12/27 -Extubated on 12/28, reintubated 12/31 for respiratory distress and extubated 01/08 -12/29 echocardiogram shows moderate concentric LVH, small pericardial effusion, transmitral Doppler flow pattern is grade 1 abnormal relaxation pattern, left- ventricular systolic function normal, LVEF 50 to 55%, no wall motion abnormalities. -01/01 CT abdomen/pelvis shows small pericardial effusion, mild coronary artery atherosclerotic calcification, small bilateral pleural effusions with associated volume loss, no convincing evidence of bowel obstruction or inflammation, postoperative changes from interval/recent midline laparotomy with a moderate amount of free fluid throughout the abdomen, small amount of dependent free air presumably postoperative -01/02 s/p ex lap, resection of perforated anastamosis, washout and abthera wound vac placement. -01/04 s/p ex lap with right hemicolectomy. -01/06 s/p exploratory laparotomy, Jejunal colonic anastomosis, Segmental small bowel resection. -s/p Vasopressor support with Levophed and vasopressin -Transitioned to HD from PD -HD per nephro, Epogen with HD -Strict NPO -cont TPN, Octreotide drip -s/p NGT to LIWS, now placed on G-tube for decompression - s/p rectal tube -s/p IV antibiotics -Tobacco abuse cessation counseling -Trend CBC, BMP DVT/GI prophylaxis: PPI, heparin subcu, SCDs to bilateral lower extremities while in bed Brief Course: This is a 60 YO Male with ESRD on PD, GERD, Crohn's Disease, Nicotine Dependence, HTN, Systolic CHF(EF 35%) who presented to the emergency department on 12/22 with complaints of abdominal pain which began shortly after eating fast food rated 10/10 which is periumbilical, constant, associated with fever, nausea and multiple sites of vomiting and self-reported inability to undergo PD. In the emergency room patient underwent a CT scan of the abdomen/pelvis which revealed evidence of partial small bowel obstruction, symptoms were consistent with bacterial peritonitis. Patient was admitted to the hospital service with sepsis, peritonitis, and small bowel obstruction with consults to general surgery, nephrology, infectious disease and [facility]. Daily clinical course: 12/23. Patient had temperature 101.2 F, tachycardia and elevated lactic acid on admission. Meet sepsis criteria. Started on IV antibiotics. ID has been consulted. Surgery consulted this a.m.-advised laparoscopy. He remains on NG tube connected to suction. 12/24. Patient was noted to have peritonitis yesterday and patient undergoing exploratory laparotomy. Patient remained intubated after procedure and is in ICU. Now on broad-spectrum antibiotics. ID on board. 12/25. Remains mechanically ventilated and sedated. Temp 103 Fahrenheit. Antibiotics broadened-ID added fluconazole and Flagyl. Blood cultures ordered. Plan to repeat CT abdomen tomorrow if not better. Surgery following. 12/26: Patient remains on mechanical ventilation on CMV tidal line 550, rate of 14, PEEP of 8 and 30% FiO2 and sedated on fentanyl 4 micrograms. Today we will remove his Jeffery and [facility] dropped his rate controlled him on CPAP. We will trend CBC given recent drop in H/H. 12/27: Patient remains intubated on CMV tidal volume 550, rate 12, PEEP 8 on 30% FiO2 at the time my examination. Patient's TPN will be changed to PPN. Patient's fentanyl drip will be changed to IV push fentanyl and have a permacath placed today and midline. Patient was placed on a spontaneous breathing trial was switched back to CMV prior to procedure. 12/28: Patient on fentanyl but awake and follows commands. At the time of my examination he was on a CPAP trial and is scheduled to receive HD today. s/o permacath and PICC placement with vascular yesterday. His blood culture grew Prevotella and addition to Streptococcus bovis. This evening Dr. Spicer attempted to extubate the patient and his heart rate went to the 180s. Stat EKG obtained and cardiology consulted. 12/29: Patient was started on amiodarone IV for A. fib RVR yesterday and today he is more rate controlled into the 70s and 80s. Patient was extubated yesterday and is currently on Ventimask. Patient will be transferred to [facility]. Patient continues to be n.p.o. with TPN and NG tube to LIS. He is hypokalemic today which was repleted. 12/30; patient was on IV amiodarone for treatment with RVR, rate is controlled. Patient was off oxygen. patient is n.p.o. and on TPN. Surgery is following the patient. 12/31: Patient was intubated overnight for respiratory distress and this morning on examination he was on assist control tidal volume 450, rate 20, PEEP 6, 100% FiO2 and RT was getting a ABG to adjust vent settings. Patient had a acute bump in WBC and per ID recommendations we will obtain a CT abdomen/pelvis if leukocytosis persist. Patient is on TPN and sedated with Levophed. Patient is also on vasopressor support with Levophed. Per surgery his ileus is resolving however will maintain OGT to LIWS. 01/01: Patient was started on a vasopressin yesterday late evening. This morning patient is on 20 mcg of Levophed and 0.03 vasopressin and sedated on 20 mcg of propofol. Patient WBC increased today and he is hypokalemic. We will treat hyperkalemia. Patient had a CT chest and abdomen/pelvis pending. The time examination total of 450, rate 20, PEEP of 6 and 35 percent FiO2. Per RN, Dr Pollock has stated that the patient will be returning to the OR today for likely anastomosis seen on CT abdomen/pelvis. 01/02: Patient noted, WBC improving, but noted to have anemia, will transfuse additional unit of Blood and repeat H/H. continue supportive care. 01/03: Continue to wean pressors, ABX PER ID, patient to return to OR today for washout and possible closure, CONTINUE TPN /12: Continues to show some improvement. Today is POD#12 s/p ex lap with extensive lysis of adhesions and two small bowel resections with primary anastamosis for SBO with necrotic segment small bowel. POD#3 s/p ex lap, resection of perforated anastamosis, washout and abthera wound vac placement. POD#1 s/p ex lap with right hemicolectomy. Surgery planning to take back to the OR on Saturday with the hope to anastamos ileum to transverse colon and close abdomen. keep NGT to suction. Pt in deep sedation due to open abdomen. Per ID - Continue IV Zosyn, renally dosed for Strep bacteremia treatment till 01/06/2021 -On TPN 01/05: Patient continues on HD, anticipate return to OR tomorrow for closure and anastemosis. Continues with deep sedation due to open abdomen 01/06: Continue supportive care, monitor pressures and electrolytes. He is post op Exploratory laparotomy, 2. Jejunal colonic anastomosis,3. Segmental small bowel resection and anastemosis closure today. Continue wound vac 01/07: Continue supportive care, Today is POD#15 s/p ex lap with extensive lysis of adhesions and two small bowel resections with primary anastamosis for SBO with necrotic segment small bowel. POD#6 s/p ex lap, resection of perforated anastamosis, washout and abthera wound vac placement. POD#4 s/p ex lap with right hemicolectomy. POD #1 exploratory laparotomy, 2. Jejunal colonic anastomosis,3. Segmental small bowel resection. Continue to monitor and correct electrolytes. Patient remains on fentanyl and TPN with lipids. Still hypoactive bowel sounds. 16: Patient now extubated, asked when he can go home, Still lethargic. Continue wound management, wound vac, Will need Rehab eval prior to discharge. 01/09: Patient remains on TPN, was started on labetalol drip per cardiology, patient had uncontrolled hypertension today however he cannot be given p.o. medications ileus resolves per surgery. Patient received hemodialysis today. NG tube remains to low intermittent suction. 01/10: Patient has some leukocytosis, slight hypokalemia and hyponatremia, metabolic acidosis. NG tube to LIWS, continue TPN. Patient will be downgraded to IMCU today. [facility] is working on placement. Will change frequency of hydralazine and discontinue labetalol drip. We will obtain a.m. BMP/mag/Phos and CBC. Infectious disease will like to start Zosyn if leukocytosis continues to worsen. 01/11: Patient leukocytosis has slightly improved potassium with in normal limits and other electrolytes are elevated but patient is scheduled for HD today. Remains on RA and A,A,Ox4. BP better controlled but remains elevated and we will increase clonidine dose. 01/12/2021; patient's blood pressure is better after dialysis and as needed IV medications and clonidine patch. Patient is followed by general surgery. Patient was alert and oriented and asked when he is going home. 01/13: Surgery is concerned about a leak at his anastamosis given increased output and will treat as controlled fistula and start an octreotide drip. And per surgery if he requires operative intervention will likely need to be left in discontinuity and eventual ileostomy as he has already failed two anastamoses. Patient still has tongue swelling and slurred speech. He is on Benadryl. 01/14: Patient's tongue swelling is improved, patient is alert and oriented, CAM ICU negative. Continue NG tube to low wall intermittent suction. Leukocytosis is improving. Hypomagnesemia resolved. Epogen with HD 01/15: Patient tongue swelling is much improved, bladder scan completed by bedside RN and he needed to be straight cathed. NGT output decreased. Leukocytos is improving. Patient has been having episodes of hypoglycemia during the day and he is on cyclic TPN, Lantus rescheduled to nightly and dosage decreased. 01/16: Continue management per ID and surgery. Will defer repeat CT of the abdomen to the team surgery has been approved by nephrology. Continue current diet and advance all to ice if okay with surgery discussed with nursing staff. 01/17: Discussed surgical recommendation of strict n.p.o. except for small amount of ice as patient has already failed to anastomosis. And risk for additional surgery with tissues were extremely friable from previous scar. He continues on octreotide drip to slow down GI output HARIS drain remains in place with NG suction for decompression. Patient verbalized understanding although stressed about being discharged. We will continue IMCU care unless otherwise advised by surgery. Prognosis remains guarded continue to monitor electrolytes considering GI output. 01/18: Continue supportive care, BP mildly elevated, continue to monitor, continue current therapy, if no return to PO soon may consider Increasing clonidine to 0.3, PO when ok with surgery. 01/19:Continue supportive care, Per ID continue IV Zosyn, plan to stop at 3 weeks from last surgery end date: 01/24/2021. Other management per surgery. Continue TPN. 01/20: Discussed with Surgery, will continue current management. Advised patient of the findings and plan. 01/21: Continue supportive care. Continue management per surgery advance diet when okay with surgery. Plan of care discussed with the patient in detail. 01/22: NG tube to be replaced explained to the patient why this is important. I agree with PT OT discussed with nursing staff very important to let the PT team know that they should manage HARIS drain while patient is ambulating so that he does not come out. Continue current management. Change in ocreotide to q8h and d/c drip NOTED 01/23: Continue supportive care, HD today, counselling provided to the patient on compliance with medical management 01/24: Replace NGT, Continue management per Surgery. POD 32. Mild hypokalemia noted, will replace. 01/25: Brief summary patient is a 60-year-old male admitted with abdominal pain and noted to have necrotic bowel concerning for PD associated peritonitis. Cat heter was placed to convert to HD. Patient also underwent multiple surgical interventions. Initial cultures showed Streptococcus bovis bacteremia and Prevotella bacteremia a COLIN was without vegetations repeat blood cultures have been negative. Part of the surgery is included ex lap, resection of perforated anastomosis, washout and a better wound VAC placement on 01/01. While progress has remained slow if has indeed shown some improvement. Patient is agitated about being in the hospital but understands the care management been provided his vital to his health and to prevent further surgeries. The NG tube has been pulled out 2 days ago he vehemently refused the tube being placed back but after a day of nausea with associated vomiting he was accepting of the chest tube to put back. He continues on TPN. We will continue to monitor electrolytes and correct as needed. This a.m. and erroneous blood was obtained likely from the same line as TPN repeat was done which showed normalizing factors. Patient completed antibiotics on 01/25/2020 . 01/26 Patient with severe sepsis with septic shock, small bowel obstruction, necrotic bowel s/p multiple surgeries. He complains of abdominal pain. No fever currently. He asked me when is he going home and i explained that he is not yet stable for discharge 01/27 Patient with severe sepsis with septic shock, small bowel obstruction, necrotic bowel s/p multiple surgeries. He complains of abdominal pain. No fever currently. Paroxysmal atrial fib managed by cardiology 01/28 Patient with severe sepsis with septic shock, small bowel obstruction, necrotic bowel s/p multiple surgeries. No fever currently. No abd pain curren tly. I discussed with Surgeon, Dr. Pollock. Continue current management. He also has paroxysmal afib, managed by Cardiology. 01/29 Patient with severe sepsis with septic shock, small bowel obstruction, necrotic bowel s/p multiple surgeries. No fever currently. No abd pain currently. I discussed with Surgeon, Dr. Pollock, yesterday. Continue current management. He also has paroxysmal afib, managed by Cardiology. He is on Metoprolol, Digoxin, Clonidine 01/30 Patient with severe sepsis with septic shock, small bowel obstruction, necrotic bowel s/p multiple surgeries. Patient is a 60-year-old male admitted with abdominal pain and noted to have necrotic bowel concerning for PD associated peritonitis. Catheter was placed to convert to HD. Patient also underwent multiple surgical interventions. Initial cultures showed Streptococcus bovis bacteremia and Prevotella bacteremia a COLIN was without vegetations repeat blood cultures have been negative. Part of the surgery is included ex lap, resection of perforated anastomosis, washout and a better wound VAC placement on 01/01. While progress has remained slow if has indeed shown some improvement. Patient is agitated about being in the hospital but understands the care management been provided his vital to his health and to prevent further surgeries. He continues on TPN. No fever currently. Less abdominal pain. I discussed with Surgeon, Dr. Pollock, few days ago. Continue current management. He also has paroxysmal afib, managed by Cardiology. He is on Metoprolol, Digoxin, Clonidine. ESRD on dialysis managed by Nephrology. 01/31: Continue HARIS drain suction. Ongoing treatment for anastomotic leak/controlled low output fistula. Maintain LIWS to NGT and monitor output. continue q 8h ocreotide. cont TPN. Defer to general surgery for NG tube discontinuation. 02/01: planned for g-tube placement for gastric decompression. Removed NG tube today. S/p HD -tolerated well : Status post G-tube placement today, resume TPN, patient is off from rectal tube. Continue supportive care and follow general surgery recommendation for discharge planning. Hemodialysis per schedule 02/03 -02/04: cont TPN, G-tube suction, Continue supportive care and follow general surgery recommendation for discharge planning. Hemodialysis per schedu jerzy Guzman Date of service: 02/04/21 Principal diagnosis: Ac hypoxemic resp failure; Severe Sepsis; Peritonitis; Acute SBO; ESRD; CHF Interval history: Patient seen and examined. Medical records and medication list reviewed. No acute event overnight noted by the RN. Patient denies any chest pain or difficulty breathing. Patient remains on TPN Discussed plan of care at bedside with patient. Objective - Exam Narrative Exam: Gen:Not in acute distress, lying in bed HEENT:Normocephalic , Neck:supple, no JVD Lungs:Clear to auscultation bilat, no rales Heart:S1 and S2 reg, no murmurs, no rubs or gallop Abd: covered with dressing, HARIS drain, decreased bowel sounds, G-tube in place Ext: No edema, no clubbing, no cyanosis Neuro:Awake,alert,oriented X3, moves all extremities psych: Calm, co-operative - Constitutional Vitals: Vital Signs - 12hr 02/04/21 02/04/21 02/04/21 06:04 06:07 07:41 Temperature 98.5 F Pulse Rate 79 79 72 Respiratory 16 Rate Blood Pressure 123/62 123/62 121/66 O2 Sat by Pulse 100 Oximetry 02/04/21 02/04/21 08:00 14:29 Temperature Pulse Rate 68 Respiratory 18 Rate Blood Pressure 126/60 O2 Sat by Pulse Oximetry - Labs CBC & Chem 7: 01/27/21 04:19 02/04/21 09:37 Labs: Abnormal lab results 02/03/21 02/03/21 02/04/21 Range/Units 18:25 23:47 05:40 Sodium 131 L D (137-145) mmol/L Potassium 3.0 L (3.6-5.0) mmol/L Chloride 93.4 L (98-107) mmol/L BUN 46 H (9-20) mg/dL Creatinine 6.5 H (0.8-1.3) mg/dL Glucose 363 H (75-100) mg/dL POC Glucose 112 H 131 H (70-105) mg/dL Phosphorus 2.40 L (2.5-4.5) mg/dL Magnesium 1.50 L (1.7-2.3) mg/dL 02/04/21 02/04/21 Range/Units 09:37 12:03 Sodium 135 L (137-145) mmol/L Potassium 3.1 L (3.6-5.0) mmol/L Chloride 96.7 L (98-107) mmol/L BUN 52 H (9-20) mg/dL Creatinine 7.3 H (0.8-1.3) mg/dL Glucose 128 H (75-100) mg/dL POC Glucose 129 H (70-105) mg/dL Phosphorus (2.5-4.5) mg/dL Magnesium 1.60 L (1.7-2.3) mg/dL HEART Score - HEART Score Troponin: Troponin T 0.021 ng/mL (0.00-0.029) 12/22/20 14:38
[2021-02-04] MEDS ORDERED: OCTREOTIDE 50 MCG in SODIUM CHLORIDE 0.9% 50 ML IV ONE (17:00)
[2021-02-04] MEDS ORDERED: POTASSIUM PHOSPHATE 30 MMOL in SODIUM CHLORIDE 0.9% 500 ML 500 ML IV ONE (17:40)
[2021-02-04] MEDS ORDERED: TOTAL PARENTERAL NUTRITION 2,016 ML IV SCH (20:00)
[2021-02-04] MEDS: INSULIN GLARGINE 100 UNITS/ML SUB-Q SCH (21:53)
[2021-02-04] MEDS: HYDROmorphone 1 MG/1 ML INJ IV PRN (23:20)
[2021-02-05] MEDS: INSULIN LISPRO 100 UNIT/ML SUB-Q SCH ×4 (01:49→18:18)
[2021-02-05] MEDS: hydrALAZINE 20 MG/1 ML INJ IV SCH ×6 (01:50→21:37)
[2021-02-05] MEDS: METOPROLOL TARTRATE 5 MG/5 ML INJ IV SCH ×6 (01:52→21:51)
[2021-02-05 07:12] LABS: Albumin 2.9 g/dL (3.9-5); Calcium 8.7 mg/dL (8.4-10.2)
[2021-02-05] MEDS: FAMOTIDINE 20 MG/2 ML INJ IV SCH ×2 (09:50→21:36)
[2021-02-05] MEDS: SCOPOLAMINE TRANSDERMAL PATCH 72 HR TD SCH (09:51)
[2021-02-05] MEDS ORDERED: POTASSIUM PHOSPHATE 30 MMOL in SODIUM CHLORIDE 0.9% 500 ML 500 ML IV ONE (10:00)
[2021-02-05] MEDS: HEPARIN 5,000 UNIT/1 ML VIAL SUB-Q SCH ×2 (10:02→21:47)
--- NOTE | 2021-02-05 11:32 | Progress Note ---
Assessment and Plan Paroxysmal atrial fibrillation currently, he is sinus rhythm on telemetry Patient is not a candidate for anticoagulation due to his postoperative status and the presence of severe anemia. Hx of nonischemic cardiomyopathy, resolving LVEF 50-55% by echo this presentation Small bowl obstruction status post multiple surgeries ESRD now on HD Anemia s/p PRBCs Patient is status post gastrostomy tube. Will transition to oral digoxin, and oral metoprolol for paroxysmal atrial fibrillation. Patient is not a candidate for anticoagulation due to his postoperative status and the presence of severe anemia. Otherwise, conservative cardiac management. Subjective Date of service: 02/05/21 Principal diagnosis: Ac hypoxemic resp failure; Severe Sepsis; Peritonitis; Acute SBO; ESRD; CHF Interval history: No significant events overnight Objective Vital Signs Temp Pulse Resp BP BP Pulse Ox 02/05/21 09:49 74 129/60 02/05/21 08:00 20 02/05/21 07:50 98.7 F 79 20 141/73 94 02/05/21 06:00 76 138/70 02/05/21 05:00 98.6 F 76 18 138/70 95 02/05/21 01:52 79 154/79 02/05/21 01:50 79 154/74 02/05/21 00:00 98.3 F 68 18 128/66 96 02/04/21 23:50 18 02/04/21 23:20 18 02/04/21 21:51 66 138/75 02/04/21 21:48 66 138/75 02/04/21 20:00 18 02/04/21 19:38 98.5 F 66 18 138/75 100 02/04/21 18:08 62 116/64 02/04/21 18:07 62 115/67 02/04/21 16:32 98.3 F 64 16 116/57 98 02/04/21 14:29 68 126/60 - Physical Examination General: No Apparent Distress HEENT: Positive: PERRL Neck: Positive: neck supple Cardiac: Positive: Reg Rate and Rhythm Lungs: Positive: clear to auscultation Neuro: Positive: Grossly Intact Abdomen: Positive: Other (post op) Skin: Positive: Clear Extremities: Absent: edema - Labs and Meds Cardiac Enzymes 02/05/21 Range/Units 06:30 AST 19 (5-40) units/L Comprehensive Metabolic Panel 06/13/21 Range/Units 06:30 Sodium 138 (137-145) mmol/L Potassium 3.2 L (3.6-5.0) mmol/L Chloride 96.5 L (98-107) mmol/L Carbon Dioxide 23 (22-30) mmol/L BUN 76 H (9-20) mg/dL Creatinine 9.6 H (0.8-1.3) mg/dL Glucose 112 H (75-100) mg/dL Calcium 8.7 (8.4-10.2) mg/dL AST 19 (5-40) units/L ALT 22 (7-56) units/L Alkaline Phosphatase 177 H (35-129) units/L Total Protein 6.0 L (6.3-8.2) g/dL Albumin 2.9 L (3.9-5) g/dL - Allied health notes Allied health notes reviewed: nursing
--- NOTE | 2021-02-05 13:17 | Progress Note ---
Assessment and Plan Assessment: * ESRD previously on peritoneal dialysis; now on back up HD (on peritoneal dialysis for 2 years) * Small bowel obstruction --s/p ex-lap with jejuno-ileal anastamosis --s/p ex lap with extensive lysis of adhesions and two small bowel resections with primary anastamosis for SBO with necrotic segment small bowel. --s/p ex lap, resection of perforated anastamosis, washout and abthera wound vac placement. --s/p ex lap with right hemicolectomy. * Acute respiratory failure * Septic shock - resolved * Bacteremia - resolved * Hyperkalemia * Anemia of ESRD * Atrial fibrilation, new onset * Post op ileus Plan: * Continue HD MWF via left IJ permcath (12/27); had yesterday, next due 02/06, no indication for HD today * 3K bath with dialysis given low K, ok to replete prn * UF as tolerated * Epogen 10k units prn w/ dialysis * Rate control per cardiology * Abx per primary team/ID * Nutrition per primary team * Maintain MAP >65 * Surgery, pulm notes appreciated * He will also require outpatient hemodialysis chair prior to discharge * His BUN is much improved. Most likely due to hypercatabolic state. Continue 4-hour of dialysis Subjective Date of service: 02/05/21 Principal diagnosis: Ac hypoxemic resp failure; Severe Sepsis; Peritonitis; Acute SBO; ESRD; CHF Interval history: No acute events noted, resting this afternoon Objective - Exam Narrative Exam: - General Limitations: Physical Limitation General appearance: no acute distress - Head Head exam: Present: atraumatic, normocephalic - Eye Eye exam: Present: normal appearance, EOMI - Neck Neck exam: Present: normal inspection - Respiratory Respiratory exam: normal breathing patterns - Cardiovascular Cardiovascular Exam: Present: normal rhythm, tachycardia - GI/Abdominal GI/Abdominal exam: Present: soft, distended (slightly), tenderness (periumbilical ) - Extremities Exam Extremities exam: Present: normal inspection; LIJ CVC noted - Neurological Exam Neurological exam: sedated - Psychiatric Psychiatric exam: opens eyes - Skin Skin exam: Present: warm, dry, intact, normal color - Vital Signs Vital signs: Vital Signs - 12hr 02/05/21 02/05/21 02/05/21 01:50 01:52 05:00 Temperature 98.6 F Pulse Rate 79 79 76 Respiratory 18 Rate Blood Pressure 154/74 154/79 Blood Pressure 138/70 [Right] O2 Sat by Pulse 95 Oximetry 02/05/21 02/05/21 02/05/21 06:00 07:50 08:00 Temperature 98.7 F Pulse Rate 76 79 Respiratory 20 20 Rate Blood Pressure 138/70 Blood Pressure 141/73 [Right] O2 Sat by Pulse 94 Oximetry 02/05/21 02/05/21 09:49 11:23 Temperature 98.4 F Pulse Rate 74 73 Respiratory 18 Rate Blood Pressure 129/60 129/63 Blood Pressure [Right] O2 Sat by Pulse 98 Oximetry - Lab 01/27/21 04:19 02/05/21 06:30 Most recent lab results ABG pH 7.345 pH Units (7.350-7.450) L 01/07/21 17:14 ABG pCO2 40.3 mm Hg 01/07/21 17:14 ABG pO2 67.4 mm Hg (80.0-90.0) L 01/07/21 17:14 ABG HCO3 21.5 mmol/L (20.0-26.0) 01/07/21 17:14 ABG O2 Saturation 94.3 % (95.0-99.0) L 01/07/21 17:14 Calcium 8.7 mg/dL (8.4-10.2) 02/05/21 06:30 Phosphorus 4.30 mg/dL (2.5-4.5) D 02/05/21 06:30 Magnesium 1.50 mg/dL (1.7-2.3) L 02/05/21 06:30 Medications & Allergies - Medications Allergies/Adverse Reactions: Allergies No Known Allergies Allergy (Verified 06/09/20 15:27) Home Medications: Home Medications Medication Instructions Recorded Confirmed Last Taken Type Albuterol Mdi (or & Nicu Only) 2 puff IH QID PRN #1 inhalation 04/01/17 11/01/20 10/31/20 09:00 Rx [ProAir HFA Inhaler] Calcium Acetate 667 mg PO DAILY 04/20/20 11/01/20 10/31/20 09:00 History Centrum Men's Tablet 1 tab PO DAILY 04/20/20 11/01/20 10/31/20 09:00 History Cinacalcet 30 mg PO DAILY 04/20/20 11/01/20 10/31/20 09:00 History Dialyvite with Zinc Tablet 1 tab PO DAILY 04/20/20 11/01/20 10/31/20 09:00 History Magnesium 250 mg PO BID 04/20/20 11/01/20 10/31/20 17:00 History Triamcinolone 0.1% 1 1000units TRANSDERMA DAILY 04/20/20 11/01/20 10/31/20 09:00 History Vit B12/Folic Acid/B6/Aa No.15 1,000 mg PO DAILY 04/20/20 11/01/20 10/31/20 09:00 History amLODIPine 10 mg PO DAILY 06/09/20 11/01/20 10/31/20 09:00 History AtorvaSTATin 40 mg PO HS 11/01/20 11/01/20 10/31/20 21:00 History Benadryl 25 mg PO HS 11/01/20 11/01/20 10/31/20 21:00 History Diclofenac 1 TRANSDERMA QID 11/01/20 10/31/20 19:00 History Fluticasone Propionate 1 spray INTRANASAL DAILY 11/01/20 11/01/20 10/31/20 09:00 History Vitamin D3 2,000 units 11/01/20 10/31/20 09:00 History carvediloL 12.5 mg PO DAILY 11/01/20 11/01/20 10/31/20 09:00 History hydrALAZINE 100 mg PO TID 11/01/20 11/01/20 10/31/20 19:00 History Active Medications: Generic Name Dose Route Start Last Admin Trade Name Freq PRN Reason Stop Dose Admin Acetaminophen 650 mg 12/31/20 15:30 01/21/21 05:28 Acetaminophen 650 Mg Rect Supp DC 650 mg Q6H PRN Administration Non Cardiac Pain or Temp>100.5 Clonidine HCl 0.2 mg 01/11/21 10:00 02/01/21 16:44 Clonidine Tts 0.2 Mg/24 Hr Patch TD 0.2 mg We THOMAS Administration Dextrose 50 ml 01/14/21 17:59 01/18/21 15:10 Dextrose 50% In Water (25gm) 50 Ml Syringe IV 20 ml Q30MIN PRN Administration Hypoglycemia Protocol Digoxin 0.125 mg 02/04/21 10:00 02/04/21 09:40 Digoxin 0.125 Mg Tab PO Not Given Q48HR [facility] Diphenhydramine HCl 50 mg 01/20/21 10:10 02/01/21 14:15 Diphenhydramine 50 Mg/Ml Vial IV 50 mg Q6H PRN Administration Itching Famotidine 10 mg 12/24/20 13:00 02/05/21 09:50 Famotidine 20 Mg/2 Ml Inj IV 10 mg BID THOMAS Administration Haloperidol Lactate 5 mg 12/29/20 14:16 01/22/21 23:56 Haloperidol Lactate 5 Mg/1 Ml Inj IV 5 mg Q12H PRN Administration Agitation Heparin Sodium (Porcine) 5,000 unit 12/24/20 10:00 02/05/21 10:02 Heparin 5,000 Unit/1 Ml Vial SUB-Q 5,000 unit Q12HR THOMAS Administration Hydralazine HCl 10 mg 01/10/21 14:00 02/05/21 09:49 Hydralazine 20 Mg/1 Ml Inj IV Not Given Q4HR [facility] Hydrocortisone Acetate 1 applic 02/01/21 18:43 Hydrocortisone 1% Cream 28.4gm TP Q8H PRN Skin Irritation Hydromorphone HCl 0.25 mg 01/09/21 10:53 02/04/21 23:20 Hydromorphone 1 Mg/1 Ml Inj IV 0.25 mg Q6H PRN Administration Pain , Severe (7-10) Sodium Chloride 100 mls @ 999 mls/hr 01/27/21 18:37 Nacl 0.9% IV [place] PRN Hypotension Amino Acids/Electrolytes/Dextrose 2,016 mls @ 84 mls/hr 02/04/21 20:00 02/04/21 20:47 Tpn Adult IV 02/05/21 19:59 84 mls/hr DAILY@1999 [facility] Administration Protocol Potassium Phosphate 30 mmol/ 510 mls @ 85 mls/hr 02/05/21 10:00 02/05/21 09:49 Sodium Chloride IV 02/05/21 15:59 85 mls/hr ONCE ONE Administration Amino Acids/Electrolytes/Dextrose 2,016 mls @ 84 mls/hr 02/05/21 20:00 Tpn Adult IV 02/06/21 19:59 DAILY@1999 [facility] Protocol Insulin Glargine 5 units 01/18/21 22:00 02/04/21 21:53 Insulin Glargine 100 Units/Ml SUB-Q 5 units QHS THOMAS Administration Insulin Human Lispro 0 unit 01/03/21 12:00 02/05/21 06:00 Insulin Lispro 100 Unit/Ml SUB-Q Not Given Q6HR [facility] Protocol Metoprolol Tartrate 5 mg 12/30/20 12:00 02/05/21 09:50 Metoprolol Tartrate 5 Mg/5 Ml Inj IV Not Given Q4HR [facility] Morphine Sulfate 2 mg 02/02/21 12:00 02/03/21 13:31 Morphine 2 Mg/1 Ml Inj IV 2 mg Q3H PRN Administration Pain, Moderate (4-6) Ondansetron HCl 4 mg 01/25/21 11:56 02/02/21 21:41 Ondansetron 4 Mg/2 Ml Inj IV 4 mg Q4H PRN Administration Nausea And Vomiting Scopolamine 1 each 01/15/21 11:00 02/05/21 09:51 Scopolamine Transdermal Patch 72 Hr TD 1 each Q3D THOMAS Administration Sodium Chloride 10 ml 12/22/20 22:00 02/05/21 09:50 Sodium Chloride 0.9% 10 Ml Flush Syringe IV 10 ml BID THOMAS Administration Sodium Chloride 10 ml 12/22/20 19:42 01/29/21 02:08 Sodium Chloride 0.9% 10 Ml Flush Syringe IV 10 ml PRN PRN Administration LINE FLUSH
--- NOTE | 2021-02-05 14:21 | Progress Note ---
Assessment and Plan POD#43 s/p ex lap with extensive lysis of adhesions and two small bowel resections with primary anastamosis for SBO with necrotic segment small bowel. POD#34 s/p ex lap, resection of perforated anastamosis, washout and abthera wound vac placement. POD#32 s/p ex lap with right hemicolectomy. POD#30 s/p ex lap, with jejunal-colonic anastamosis and closure of abdomen. Afebrile and stable. - concerned about a leak at his anastamosis. Clinically improved with decreased output that is becoming more serous. 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 Continue HARIS drain suction. HARIS drain must be secured and kept in place. Since HARIS drain has continued to stay about 10ml over the last several days, will continue lower dose of octreotide. continue g-tube to drainage for decompression. continue clear liquids and closely monitor HARIS drain output. Subjective Date of service: 02/05/21 Narrative: no acute events. Pt denies nausea or vomiting. Tolerating clear liquids. continues to have loose stools. Objective Vital Signs - 12hr 02/05/21 02/05/21 02/05/21 05:00 06:00 07:50 Temperature 98.6 F 98.7 F Pulse Rate 76 76 79 Respiratory 18 20 Rate Blood Pressure 138/70 Blood Pressure 138/70 141/73 [Right] O2 Sat by Pulse 95 94 Oximetry 02/05/21 02/05/21 02/05/21 08:00 09:49 11:23 Temperature 98.4 F Pulse Rate 74 73 Respiratory 20 18 Rate Blood Pressure 129/60 129/63 Blood Pressure [Right] O2 Sat by Pulse 98 Oximetry - General physical appearance well developed, well nourished, no distress, no pain - Respiratory normal expansion, normal respiratory effort - Abdomen soft, not tender, not distended, not guarding, not rigid - Labs 01/27/21 04:19 02/05/21 06:30 Diabetes panel 02/05/21 Range/Units 06:30 Sodium 138 (137-145) mmol/L Potassium 3.2 L (3.6-5.0) mmol/L Chloride 96.5 L (98-107) mmol/L Carbon Dioxide 23 (22-30) mmol/L BUN 76 H (9-20) mg/dL Creatinine 9.6 H (0.8-1.3) mg/dL Glucose 112 H (75-100) mg/dL Calcium 8.7 (8.4-10.2) mg/dL AST 19 (5-40) units/L ALT 22 (7-56) units/L Alkaline Phosphatase 177 H (35-129) units/L Total Protein 6.0 L (6.3-8.2) g/dL Albumin 2.9 L (3.9-5) g/dL Calcium panel 02/05/21 Range/Units 06:30 Calcium 8.7 (8.4-10.2) mg/dL Phosphorus 4.30 D (2.5-4.5) mg/dL Albumin 2.9 L (3.9-5) g/dL Pituitary panel 02/05/21 Range/Units 06:30 Sodium 138 (137-145) mmol/L Potassium 3.2 L (3.6-5.0) mmol/L Chloride 96.5 L (98-107) mmol/L Carbon Dioxide 23 (22-30) mmol/L BUN 76 H (9-20) mg/dL Creatinine 9.6 H (0.8-1.3) mg/dL Glucose 112 H (75-100) mg/dL Calcium 8.7 (8.4-10.2) mg/dL Adrenal panel 02/05/21 Range/Units 06:30 Sodium 138 (137-145) mmol/L Potassium 3.2 L (3.6-5.0) mmol/L Chloride 96.5 L (98-107) mmol/L Carbon Dioxide 23 (22-30) mmol/L BUN 76 H (9-20) mg/dL Creatinine 9.6 H (0.8-1.3) mg/dL Glucose 112 H (75-100) mg/dL Calcium 8.7 (8.4-10.2) mg/dL Total Bilirubin 0.50 (0.1-1.2) mg/dL AST 19 (5-40) units/L ALT 22 (7-56) units/L Alkaline Phosphatase 177 H (35-129) units/L Total Protein 6.0 L (6.3-8.2) g/dL Albumin 2.9 L (3.9-5) g/dL
--- NOTE | 2021-02-05 14:25 | Progress Note ---
Assessment and Plan Severe Sepsis with shock Streptococcus bovis bacteremia/Prevotella bacteremia Gwendolyn albicans tracheal aspirate Small bowel obstruction/necrotic bowel s/p ex lap with extensive lysis of adhesions, 2 small bowel resections with primary anastomosis, right hemicolectomy, jejunal colonic anastomosis, segmental small bowel resection Postoperative ileus Atrial fibrillation with RVR Leukocytosis Hypochloremia Gwendolyn albicans in tracheal aspirate from 12/24 ESRD on PD, PermCath to be placed Transaminitis Systolic CHF(EF 35%) Crohn's disease Hypertension -[facility], surgery, infectious disease, nephrology, vascular surgery, cardiology consulted, appreciate recommendations -12/24 S/p ex lap with extensive expectations, 2 small bowel resections with primary anastomosis with surgery on 12/23 -s/p PICC and Permacath placement with vascular surgery on 12/27 -Extubated on 12/28, reintubated 12/31 for respiratory distress and extubated 01/08 -12/29 echocardiogram shows moderate concentric LVH, small pericardial effusion, transmitral Doppler flow pattern is grade 1 abnormal relaxation pattern, left- ventricular systolic function normal, LVEF 50 to 55%, no wall motion abnormalities. -01/01 CT abdomen/pelvis shows small pericardial effusion, mild coronary artery atherosclerotic calcification, small bilateral pleural effusions with associated volume loss, no convincing evidence of bowel obstruction or inflammation, postoperative changes from interval/recent midline laparotomy with a moderate amount of free fluid throughout the abdomen, small amount of dependent free air presumably postoperative -01/02 s/p ex lap, resection of perforated anastamosis, washout and abthera wound vac placement. -01/04 s/p ex lap with right hemicolectomy. -01/06 s/p exploratory laparotomy, Jejunal colonic anastomosis, Segmental small bowel resection. -s/p Vasopressor support with Levophed and vasopressin -Transitioned to HD from PD -HD per nephro, Epogen with HD -Strict NPO -cont TPN, Octreotide drip -s/p NGT to LIWS, now placed on G-tube for decompression - s/p rectal tube -s/p IV antibiotics -Tobacco abuse cessation counseling -Trend CBC, BMP DVT/GI prophylaxis: PPI, heparin subcu, SCDs to bilateral lower extremities while in bed Brief Course: This is a 60 YO Male with ESRD on PD, GERD, Crohn's Disease, Nicotine Dependence, HTN, Systolic CHF(EF 35%) who presented to the emergency department on 12/22 with complaints of abdominal pain which began shortly after eating fast food rated 10/10 which is periumbilical, constant, associated with fever, nausea and multiple sites of vomiting and self-reported inability to undergo PD. In the emergency room patient underwent a CT scan of the abdomen/pelvis which revealed evidence of partial small bowel obstruction, symptoms were consistent with bacterial peritonitis. Patient was admitted to the hospital service with sepsis, peritonitis, and small bowel obstruction with consults to general surgery, nephrology, infectious disease and [facility]. Daily clinical course: 12/23. Patient had temperature 101.2 F, tachycardia and elevated lactic acid on admission. Meet sepsis criteria. Started on IV antibiotics. ID has been consulted. Surgery consulted this a.m.-advised laparoscopy. He remains on NG tube connected to suction. 12/24. Patient was noted to have peritonitis yesterday and patient undergoing exploratory laparotomy. Patient remained intubated after procedure and is in ICU. Now on broad-spectrum antibiotics. ID on board. 12/25. Remains mechanically ventilated and sedated. Temp 103 Fahrenheit. Antibiotics broadened-ID added fluconazole and Flagyl. Blood cultures ordered. Plan to repeat CT abdomen tomorrow if not better. Surgery following. 12/26: Patient remains on mechanical ventilation on CMV tidal line 550, rate of 14, PEEP of 8 and 30% FiO2 and sedated on fentanyl 4 micrograms. Today we will remove his Jeffery and [facility] dropped his rate controlled him on CPAP. We will trend CBC given recent drop in H/H. 12/27: Patient remains intubated on CMV tidal volume 550, rate 12, PEEP 8 on 30% FiO2 at the time my examination. Patient's TPN will be changed to PPN. Patient's fentanyl drip will be changed to IV push fentanyl and have a permacath placed today and midline. Patient was placed on a spontaneous breathing trial was switched back to CMV prior to procedure. 12/28: Patient on fentanyl but awake and follows commands. At the time of my examination he was on a CPAP trial and is scheduled to receive HD today. s/o permacath and PICC placement with vascular yesterday. His blood culture grew Prevotella and addition to Streptococcus bovis. This evening Dr. Spicer attempted to extubate the patient and his heart rate went to the 180s. Stat EKG obtained and cardiology consulted. 12/29: Patient was started on amiodarone IV for A. fib RVR yesterday and today he is more rate controlled into the 70s and 80s. Patient was extubated yesterday and is currently on Ventimask. Patient will be transferred to [facility]. Patient continues to be n.p.o. with TPN and NG tube to LIS. He is hypokalemic today which was repleted. 12/30; patient was on IV amiodarone for treatment with RVR, rate is controlled. Patient was off oxygen. patient is n.p.o. and on TPN. Surgery is following the patient. 12/31: Patient was intubated overnight for respiratory distress and this morning on examination he was on assist control tidal volume 450, rate 20, PEEP 6, 100% FiO2 and RT was getting a ABG to adjust vent settings. Patient had a acute bump in WBC and per ID recommendations we will obtain a CT abdomen/pelvis if leukocytosis persist. Patient is on TPN and sedated with Levophed. Patient is also on vasopressor support with Levophed. Per surgery his ileus is resolving however will maintain OGT to LIWS. 01/01: Patient was started on a vasopressin yesterday late evening. This morning patient is on 20 mcg of Levophed and 0.03 vasopressin and sedated on 20 mcg of propofol. Patient WBC increased today and he is hypokalemic. We will treat hyperkalemia. Patient had a CT chest and abdomen/pelvis pending. The time examination total of 450, rate 20, PEEP of 6 and 35 percent FiO2. Per RN, Dr Pollock has stated that the patient will be returning to the OR today for likely anastomosis seen on CT abdomen/pelvis. 01/02: Patient noted, WBC improving, but noted to have anemia, will transfuse additional unit of Blood and repeat H/H. continue supportive care. 01/03: Continue to wean pressors, ABX PER ID, patient to return to OR today for washout and possible closure, CONTINUE TPN /12: Continues to show some improvement. Today is POD#12 s/p ex lap with extensive lysis of adhesions and two small bowel resections with primary anastamosis for SBO with necrotic segment small bowel. POD#3 s/p ex lap, resection of perforated anastamosis, washout and abthera wound vac placement. POD#1 s/p ex lap with right hemicolectomy. Surgery planning to take back to the OR on Saturday with the hope to anastamos ileum to transverse colon and close abdomen. keep NGT to suction. Pt in deep sedation due to open abdomen. Per ID - Continue IV Zosyn, renally dosed for Strep bacteremia treatment till 01/06/2021 -On TPN 01/05: Patient continues on HD, anticipate return to OR tomorrow for closure and anastemosis. Continues with deep sedation due to open abdomen 01/06: Continue supportive care, monitor pressures and electrolytes. He is post op Exploratory laparotomy, 2. Jejunal colonic anastomosis,3. Segmental small bowel resection and anastemosis closure today. Continue wound vac 01/07: Continue supportive care, Today is POD#15 s/p ex lap with extensive lysis of adhesions and two small bowel resections with primary anastamosis for SBO with necrotic segment small bowel. POD#6 s/p ex lap, resection of perforated anastamosis, washout and abthera wound vac placement. POD#4 s/p ex lap with right hemicolectomy. POD #1 exploratory laparotomy, 2. Jejunal colonic anastomosis,3. Segmental small bowel resection. Continue to monitor and correct electrolytes. Patient remains on fentanyl and TPN with lipids. Still hypoactive bowel sounds. 16: Patient now extubated, asked when he can go home, Still lethargic. Continue wound management, wound vac, Will need Rehab eval prior to discharge. 01/09: Patient remains on TPN, was started on labetalol drip per cardiology, patient had uncontrolled hypertension today however he cannot be given p.o. medications ileus resolves per surgery. Patient received hemodialysis today. NG tube remains to low intermittent suction. 01/10: Patient has some leukocytosis, slight hypokalemia and hyponatremia, metabolic acidosis. NG tube to LIWS, continue TPN. Patient will be downgraded to IMCU today. [facility] is working on placement. Will change frequency of hydralazine and discontinue labetalol drip. We will obtain a.m. BMP/mag/Phos and CBC. Infectious disease will like to start Zosyn if leukocytosis continues to worsen. 01/11: Patient leukocytosis has slightly improved potassium with in normal limits and other electrolytes are elevated but patient is scheduled for HD today. Remains on RA and A,A,Ox4. BP better controlled but remains elevated and we will increase clonidine dose. 01/12/2021; patient's blood pressure is better after dialysis and as needed IV medications and clonidine patch. Patient is followed by general surgery. Patient was alert and oriented and asked when he is going home. 01/13: Surgery is concerned about a leak at his anastamosis given increased output and will treat as controlled fistula and start an octreotide drip. And per surgery if he requires operative intervention will likely need to be left in discontinuity and eventual ileostomy as he has already failed two anastamoses. Patient still has tongue swelling and slurred speech. He is on Benadryl. 01/14: Patient's tongue swelling is improved, patient is alert and oriented, CAM ICU negative. Continue NG tube to low wall intermittent suction. Leukocytosis is improving. Hypomagnesemia resolved. Epogen with HD 01/15: Patient tongue swelling is much improved, bladder scan completed by bedside RN and he needed to be straight cathed. NGT output decreased. Leukocytos is improving. Patient has been having episodes of hypoglycemia during the day and he is on cyclic TPN, Lantus rescheduled to nightly and dosage decreased. 01/16: Continue management per ID and surgery. Will defer repeat CT of the abdomen to the team surgery has been approved by nephrology. Continue current diet and advance all to ice if okay with surgery discussed with nursing staff. 01/17: Discussed surgical recommendation of strict n.p.o. except for small amount of ice as patient has already failed to anastomosis. And risk for additional surgery with tissues were extremely friable from previous scar. He continues on octreotide drip to slow down GI output HARIS drain remains in place with NG suction for decompression. Patient verbalized understanding although stressed about being discharged. We will continue IMCU care unless otherwise advised by surgery. Prognosis remains guarded continue to monitor electrolytes considering GI output. 01/18: Continue supportive care, BP mildly elevated, continue to monitor, continue current therapy, if no return to PO soon may consider Increasing clonidine to 0.3, PO when ok with surgery. 01/19:Continue supportive care, Per ID continue IV Zosyn, plan to stop at 3 weeks from last surgery end date: 01/24/2021. Other management per surgery. Continue TPN. 01/20: Discussed with Surgery, will continue current management. Advised patient of the findings and plan. 01/21: Continue supportive care. Continue management per surgery advance diet when okay with surgery. Plan of care discussed with the patient in detail. 01/22: NG tube to be replaced explained to the patient why this is important. I agree with PT OT discussed with nursing staff very important to let the PT team know that they should manage HARIS drain while patient is ambulating so that he does not come out. Continue current management. Change in ocreotide to q8h and d/c drip NOTED 01/23: Continue supportive care, HD today, counselling provided to the patient on compliance with medical management 01/24: Replace NGT, Continue management per Surgery. POD 32. Mild hypokalemia noted, will replace. 01/25: Brief summary patient is a 60-year-old male admitted with abdominal pain and noted to have necrotic bowel concerning for PD associated peritonitis. Cat heter was placed to convert to HD. Patient also underwent multiple surgical interventions. Initial cultures showed Streptococcus bovis bacteremia and Prevotella bacteremia a COLIN was without vegetations repeat blood cultures have been negative. Part of the surgery is included ex lap, resection of perforated anastomosis, washout and a better wound VAC placement on 01/01. While progress has remained slow if has indeed shown some improvement. Patient is agitated about being in the hospital but understands the care management been provided his vital to his health and to prevent further surgeries. The NG tube has been pulled out 2 days ago he vehemently refused the tube being placed back but after a day of nausea with associated vomiting he was accepting of the chest tube to put back. He continues on TPN. We will continue to monitor electrolytes and correct as needed. This a.m. and erroneous blood was obtained likely from the same line as TPN repeat was done which showed normalizing factors. Patient completed antibiotics on 01/25/2020 . 01/26 Patient with severe sepsis with septic shock, small bowel obstruction, necrotic bowel s/p multiple surgeries. He complains of abdominal pain. No fever currently. He asked me when is he going home and i explained that he is not yet stable for discharge 01/27 Patient with severe sepsis with septic shock, small bowel obstruction, necrotic bowel s/p multiple surgeries. He complains of abdominal pain. No fever currently. Paroxysmal atrial fib managed by cardiology 01/28 Patient with severe sepsis with septic shock, small bowel obstruction, necrotic bowel s/p multiple surgeries. No fever currently. No abd pain curren tly. I discussed with Surgeon, Dr. Pollock. Continue current management. He also has paroxysmal afib, managed by Cardiology. 01/29 Patient with severe sepsis with septic shock, small bowel obstruction, necrotic bowel s/p multiple surgeries. No fever currently. No abd pain currently. I discussed with Surgeon, Dr. Pollock, yesterday. Continue current management. He also has paroxysmal afib, managed by Cardiology. He is on Metoprolol, Digoxin, Clonidine 01/30 Patient with severe sepsis with septic shock, small bowel obstruction, necrotic bowel s/p multiple surgeries. Patient is a 60-year-old male admitted with abdominal pain and noted to have necrotic bowel concerning for PD associated peritonitis. Catheter was placed to convert to HD. Patient also underwent multiple surgical interventions. Initial cultures showed Streptococcus bovis bacteremia and Prevotella bacteremia a COLIN was without vegetations repeat blood cultures have been negative. Part of the surgery is included ex lap, resection of perforated anastomosis, washout and a better wound VAC placement on 01/01. While progress has remained slow if has indeed shown some improvement. Patient is agitated about being in the hospital but understands the care management been provided his vital to his health and to prevent further surgeries. He continues on TPN. No fever currently. Less abdominal pain. I discussed with Surgeon, Dr. Pollock, few days ago. Continue current management. He also has paroxysmal afib, managed by Cardiology. He is on Metoprolol, Digoxin, Clonidine. ESRD on dialysis managed by Nephrology. 01/31: Continue HARIS drain suction. Ongoing treatment for anastomotic leak/controlled low output fistula. Maintain LIWS to NGT and monitor output. continue q 8h ocreotide. cont TPN. Defer to general surgery for NG tube discontinuation. 02/01: planned for g-tube placement for gastric decompression. Removed NG tube today. S/p HD -tolerated well : Status post G-tube placement today, resume TPN, patient is off from rectal tube. Continue supportive care and follow general surgery recommendation for discharge planning. Hemodialysis per schedule 02/03 -02/05: cont TPN, G-tube suction, Continue supportive care and follow general surgery recommendation for discharge planning. Hemodialysis per anne bertrand. Subjective Date of service: 02/05/21 Principal diagnosis: Ac hypoxemic resp failure; Severe Sepsis; Peritonitis; Acute SBO; ESRD; CHF Interval history: Patient seen and examined. Medical records and medication list reviewed. No acute event overnight noted by the RN. Patient denies any chest pain or difficulty breathing. Patient remains on TPN Discussed plan of care at bedside with patient. Objective - Exam Narrative Exam: Gen:Not in acute distress, lying in bed HEENT:Normocephalic , Neck:supple, no JVD Lungs:Clear to auscultation bilat, no rales Heart:S1 and S2 reg, no murmurs, no rubs or gallop Abd: covered with dressing, HARIS drain, decreased bowel sounds, G-tube in place Ext: No edema, no clubbing, no cyanosis Neuro:Awake,alert,oriented X3, moves all extremities psych: Calm, co-operative - Constitutional Vitals: Vital Signs - 12hr 02/05/21 02/05/21 02/05/21 05:00 06:00 07:50 Temperature 98.6 F 98.7 F Pulse Rate 76 76 79 Respiratory 18 20 Rate Blood Pressure 138/70 Blood Pressure 138/70 141/73 [Right] O2 Sat by Pulse 95 94 Oximetry 02/05/21 02/05/21 02/05/21 08:00 09:49 11:23 Temperature 98.4 F Pulse Rate 74 73 Respiratory 20 18 Rate Blood Pressure 129/60 129/63 Blood Pressure [Right] O2 Sat by Pulse 98 Oximetry - Labs CBC & Chem 7: 01/27/21 04:19 02/05/21 06:30 Labs: Abnormal lab results 02/04/21 02/04/21 02/04/21 Range/Units 12:03 17:25 21:38 Potassium (3.6-5.0) mmol/L Chloride (98-107) mmol/L BUN (9-20) mg/dL Creatinine (0.8-1.3) mg/dL Glucose (75-100) mg/dL POC Glucose 129 H 132 H 108 H (70-105) mg/dL Magnesium (1.7-2.3) mg/dL Alkaline Phosphatase (35-129) units/L Total Protein (6.3-8.2) g/dL Albumin (3.9-5) g/dL 0602/05/21 02/05/21 Range/Units 05:19 06:30 11:25 Potassium 3.2 L (3.6-5.0) mmol/L Chloride 96.5 L (98-107) mmol/L BUN 76 H (9-20) mg/dL Creatinine 9.6 H (0.8-1.3) mg/dL Glucose 112 H (75-100) mg/dL POC Glucose 116 H 118 H (70-105) mg/dL Magnesium 1.50 L (1.7-2.3) mg/dL Alkaline Phosphatase 177 H (35-129) units/L Total Protein 6.0 L (6.3-8.2) g/dL Albumin 2.9 L (3.9-5) g/dL HEART Score - HEART Score Troponin: Troponin T 0.021 ng/mL (0.00-0.029) 12/22/20 14:38
--- NOTE | 2021-02-05 15:25 | Progress Note ---
Assessment and Plan Acute hypoxemic respiratory failure, on mechanical ventilatory support. Severe Sepsis Peritonitis Acute small-bowel obstruction with tissue necrosis. End-stage renal disease, on dialysis. Hypertension. Crohn's disease. Gastroesophageal reflux disease. Heart failure with reduced ejection fraction. Hyperkalemia. Anemia that is normocytic. Lactic acidosis. Oropharyngeal dysphagia - continue TPN - begin enteral nutritiuon once ok with general surgeon - keep PEG to gravity meanwhile - no new issues otherwise, continue care as below; - continue incentive spirometry - continue octreotide - follow clinically for S&S of infection re: fevers / WBC - continue total parenteral nutrition - continue wound care per RN/WCN - continue to wean supplemental oxygen for target O2 sat's > 92% acutely - aspiration precautions - continue bronchodilators with pulmonary hygiene per RT - wean per pulmonary driven protocols otherwise - HD/UF per nephrology prescription for toxin and volume control - avoid nephrotoxins, renally dose all medications - continue accuchecks with glycemic control per SSI for target blood glucose of <180 mg/dL; avoid hypoglycemia - continue to avoid benzodiazepine's, reduce the possibility of delirium - AB's per ID rec's - prn analgesia per pain score - Maintenance of sleep-wake cycle, avoid delirium - G.I. & VTE prophylaxis - PT/OT/ROM exercises - continue mobility protocols for pressure ulcer prophylaxis - Monitor hemodynamics closely - continue other care per attending / other consultants - discharge planning ongoing concurrently .... Re-evaluate in am & prn Subjective Date of service: 02/05/21 Principal diagnosis: Ac hypoxemic resp failure; Severe Sepsis; Peritonitis; Acute SBO; ESRD; CHF Interval history: Patient is seen today for: Ac hypoxemic resp failure; Severe Sepsis; Peritonitis; Acute SBO; ESRD on Dialysis; HTN; Crohn's disease; HFrEF Seen and examined at bedside; 24hour events reviewed; nursing and respiratory care staff consulted; no adverse overnight events reported to me; resting in bed; remains on TPN; denies chest pain or SOB Objective Vital Signs - 12hr 02/05/21 02/05/21 02/05/21 05:00 06:00 07:50 Temperature 98.6 F 98.7 F Pulse Rate 76 76 79 Respiratory 18 20 Rate Blood Pressure 138/70 Blood Pressure 138/70 141/73 [Right] O2 Sat by Pulse 95 94 Oximetry 02/05/21 02/05/21 02/05/21 08:00 09:49 11:23 Temperature 98.4 F Pulse Rate 74 73 Respiratory 20 18 Rate Blood Pressure 129/60 129/63 Blood Pressure [Right] O2 Sat by Pulse 98 Oximetry Constitutional: no acute distress, alert, other (00) Eyes: non-icteric ENT: oropharynx moist Neck: supple, no lymphadenopathy, no JVD Effort: normal Ascultation: Bilateral: diminished breath sounds, rhonchi Percussion: Bilateral: not dull Cardiovascular: regular rate and rhythm, other (S1,S2) Gastrointestinal: hypoactive bowel sounds, soft, non-tender, non-distended (protuberant), other (Midline abdominal incision; + PEG) Integumentary: other (Midline abdominal incision ) Extremities: no cyanosis, no edema, pulses normal, no ischemia or petechiae Neurologic: non-focal exam (grossly), pupils equal and round, CN II-XII normal Psychiatric: mood appropriate, affect normal CBC and BMP: 02/07/21 04:35 02/09/21 07:44 ABG, PT/INR, D-dimer: ABG ABG pH 7.345 pH Units (7.350-7.450) L 01/07/21 17:14 POC ABG pCO2 41.4 mmHg (32.0-48.0) 01/07/21 03:07 ABG pCO2 40.3 mm Hg 01/07/21 17:14 POC ABG pO2 94.5 mmHg (83-108) 01/07/21 03:07 ABG pO2 67.4 mm Hg (80.0-90.0) L 01/07/21 17:14 POC ABG HCO3 22.7 01/07/21 03:07 ABG O2 Saturation 94.3 % (95.0-99.0) L 01/07/21 17:14 PT/INR, D-dimer PT 16.9 Sec. (12.2-14.9) H 01/01/21 12:45 INR 1.39 (0.87-1.13) H 01/01/21 12:45 Abnormal lab findings: Abnormal Labs 12/22/20 12/22/20 12/22/20 14:38 14:38 14:38 WBC RBC Hgb 11.2 L Hct 35.0 L MCV MCHC RDW 16.7 H Plt Count Lymph % (Auto) [place] % (Auto) Eos % (Auto) Lymph # (Auto) [place] # (Auto) Eos # (Auto) Seg Neutrophils % Seg Neuts % (Manual) 94.0 H Lymphocytes % (Manual) 5.0 L Monocytes % (Manual) Seg Neutrophils # Seg Neutrophils # Man Lymphocytes # (Manual) 0.3 L Monocytes # (Manual) PT INR ABG pH POC ABG pCO2 POC ABG pO2 ABG pO2 ABG HCO3 ABG O2 Saturation ABG Base Excess ABG Hemoglobin ABG Oxyhemoglobin ABG Sodium ABG Potassium ABG Chloride ABG Glucose Oxyhemoglobin Sodium Potassium Chloride Carbon Dioxide BUN 58 H Creatinine 13.2 H Glucose 113 H POC Glucose Lactic Acid 3.60 H* Calcium Phosphorus Magnesium Total Bilirubin 1.30 H AST ALT Alkaline Phosphatase 155 H Total Protein Albumin Triglycerides Arterial Blood Glucose Arterial Blood Ionized Calcium Digoxin Crossmatch 12/22/20 12/22/20 12/23/20 16:26 17:47 05:22 WBC RBC Hgb Hct MCV MCHC RDW Plt Count Lymph % (Auto) [place] % (Auto) Eos % (Auto) Lymph # (Auto) [place] # (Auto) Eos # (Auto) Seg Neutrophils % Seg Neuts % (Manual) Lymphocytes % (Manual) Monocytes % (Manual) Seg Neutrophils # Seg Neutrophils # Man Lymphocytes # (Manual) Monocytes # (Manual) PT INR ABG pH POC ABG pCO2 POC ABG pO2 ABG pO2 ABG HCO3 ABG O2 Saturation ABG Base Excess ABG Hemoglobin ABG Oxyhemoglobin ABG Sodium ABG Potassium ABG Chloride ABG Glucose Oxyhemoglobin Sodium Potassium Chloride Carbon Dioxide BUN Creatinine Glucose POC Glucose Lactic Acid 2.80 H* 3.10 H* 2.30 H* Calcium Phosphorus Magnesium Total Bilirubin AST ALT Alkaline Phosphatase Total Protein Albumin Triglycerides Arterial Blood Glucose Arterial Blood Ionized Calcium Digoxin Crossmatch 12/23/20 12/23/20 12/23/20 05:22 05:22 06:35 WBC 12.1 H RBC Hgb 11.0 L Hct 33.7 L MCV MCHC RDW 16.9 H Plt Count Lymph % (Auto) [place] % (Auto) Eos % (Auto) Lymph # (Auto) [place] # (Auto) Eos # (Auto) Seg Neutrophils % Seg Neuts % (Manual) 93.0 H Lymphocytes % (Manual) 1.0 L Monocytes % (Manual) Seg Neutrophils # Seg Neutrophils # Man 11.3 H Lymphocytes # (Manual) 0.1 L Monocytes # (Manual) PT INR ABG pH POC ABG pCO2 POC ABG pO2 ABG pO2 ABG HCO3 ABG O2 Saturation ABG Base Excess ABG Hemoglobin ABG Oxyhemoglobin ABG Sodium ABG Potassium ABG Chloride ABG Glucose Oxyhemoglobin Sodium Potassium 5.7 H D Chloride Carbon Dioxide BUN 73 H Creatinine 14.2 H Glucose POC Glucose Lactic Acid 2.30 H* Calcium 7.9 L Phosphorus Magnesium Total Bilirubin 1.40 H AST 119 H ALT 130 H Alkaline Phosphatase 183 H Total Protein 6.1 L Albumin 3.6 L Triglycerides Arterial Blood Glucose Arterial Blood Ionized Calcium Digoxin Crossmatch 12/23/20 12/23/20 12/23/20 11:40 13:53 16:47 WBC RBC Hgb 10.0 L Hct 30.4 L MCV MCHC RDW Plt Count Lymph % (Auto) [place] % (Auto) Eos % (Auto) Lymph # (Auto) [place] # (Auto) Eos # (Auto) Seg Neutrophils % Seg Neuts % (Manual) Lymphocytes % (Manual) Monocytes % (Manual) Seg Neutrophils # Seg Neutrophils # Man Lymphocytes # (Manual) Monocytes # (Manual) PT INR ABG pH POC ABG pCO2 POC ABG pO2 137.5 H ABG pO2 ABG HCO3 ABG O2 Saturation ABG Base Excess ABG Hemoglobin 9.7 L ABG Oxyhemoglobin ABG Sodium 134.1 L ABG Potassium 6.6 H ABG Chloride ABG Glucose 103 H Oxyhemoglobin Sodium Potassium Chloride Carbon Dioxide BUN Creatinine Glucose POC Glucose Lactic Acid Calcium Phosphorus Magnesium Total Bilirubin AST ALT Alkaline Phosphatase Total Protein Albumin Triglycerides Arterial Blood Glucose 103 H Arterial Blood Ionized Calcium 3.8 L Digoxin Crossmatch See Detail 12/23/20 12/23/20 12/24/20 20:35 20:40 01:20 WBC RBC Hgb Hct MCV MCHC RDW Plt Count Lymph % (Auto) [place] % (Auto) Eos % (Auto) Lymph # (Auto) [place] # (Auto) Eos # (Auto) Seg Neutrophils % Seg Neuts % (Manual) Lymphocytes % (Manual) Monocytes % (Manual) Seg Neutrophils # Seg Neutrophils # Man Lymphocytes # (Manual) Monocytes # (Manual) PT INR ABG pH 7.252 L POC ABG pCO2 POC ABG pO2 ABG pO2 50.1 L ABG HCO3 ABG O2 Saturation 81.1 L ABG Base Excess -5.9 L ABG Hemoglobin 12.1 L ABG Oxyhemoglobin ABG Sodium ABG Potassium ABG Chloride ABG Glucose Oxyhemoglobin 78.6 L Sodium 134 L Potassium 6.9 H* D 6.3 H* Chloride Carbon Dioxide 18 L 20 L BUN 87 H 91 H Creatinine 15.3 H 15.3 H Glucose 103 H POC Glucose Lactic Acid Calcium 6.9 L 7.5 L Phosphorus Magnesium Total Bilirubin AST ALT Alkaline Phosphatase Total Protein Albumin Triglycerides Arterial Blood Glucose Arterial Blood Ionized Calcium Digoxin Crossmatch 12/24/20 12/24/20 12/24/20 04:00 10:29 10:29 WBC RBC 3.49 L Hgb 10.5 L Hct 31.2 L MCV MCHC RDW 17.5 H Plt Count 124 L Lymph % (Auto) 3.7 L [place] % (Auto) 9.8 H Eos % (Auto) Lymph # (Auto) 0.2 L [place] # (Auto) Eos # (Auto) Seg Neutrophils % 85.9 H Seg Neuts % (Manual) Lymphocytes % (Manual) Monocytes % (Manual) Seg Neutrophils # Seg Neutrophils # Man Lymphocytes # (Manual) Monocytes # (Manual) PT INR ABG pH POC ABG pCO2 28.1 L POC ABG pO2 ABG pO2 ABG HCO3 ABG O2 Saturation ABG Base Excess ABG Hemoglobin ABG Oxyhemoglobin ABG Sodium 133.9 L ABG Potassium 5.3 H ABG Chloride 108.0 H ABG Glucose Oxyhemoglobin Sodium Potassium 5.6 H Chloride Carbon Dioxide 19 L BUN 99 H Creatinine 16.9 H Glucose 52 L POC Glucose Lactic Acid Calcium 7.6 L Phosphorus Magnesium Total Bilirubin 3.50 H AST 67 H ALT 71 H Alkaline Phosphatase Total Protein 3.5 L D Albumin 2.1 L Triglycerides Arterial Blood Glucose Arterial Blood Ionized Calcium 4.0 L Digoxin Crossmatch 12/25/20 12/25/20 12/25/20 03:33 04:00 04:00 WBC 3.8 L RBC 2.90 L Hgb 8.6 L Hct 25.7 L MCV MCHC RDW 16.7 H Plt Count 113 L Lymph % (Auto) [place] % (Auto) Eos % (Auto) Lymph # (Auto) [place] # (Auto) Eos # (Auto) Seg Neutrophils % Seg Neuts % (Manual) Lymphocytes % (Manual) Monocytes % (Manual) Seg Neutrophils # Seg Neutrophils # Man Lymphocytes # (Manual) Monocytes # (Manual) PT INR ABG pH 7.544 H POC ABG pCO2 28.2 L POC ABG pO2 62.8 L ABG pO2 ABG HCO3 ABG O2 Saturation ABG Base Excess ABG Hemoglobin 9.3 L ABG Oxyhemoglobin 93.0 L ABG Sodium 130.3 L ABG Potassium ABG Chloride ABG Glucose 97 H Oxyhemoglobin Sodium Potassium Chloride Carbon Dioxide BUN 62 H Creatinine 11.4 H Glucose POC Glucose Lactic Acid Calcium 7.7 L Phosphorus 5.00 H Magnesium Total Bilirubin AST ALT Alkaline Phosphatase Total Protein Albumin Triglycerides Arterial Blood Glucose 97 H Arterial Blood Ionized Calcium 3.9 L Digoxin Crossmatch 12/26/20 12/26/20 12/27/20 04:46 Unknown 03:40 WBC 4.1 L RBC 2.61 L Hgb 7.8 L Hct 23.4 L MCV MCHC RDW 17.1 H Plt Count 119 L Lymph % (Auto) 5.3 L [place] % (Auto) 10.6 H Eos % (Auto) Lymph # (Auto) 0.2 L [place] # (Auto) Eos # (Auto) Seg Neutrophils % 78.8 H Seg Neuts % (Manual) Lymphocytes % (Manual) Monocytes % (Manual) Seg Neutrophils # Seg Neutrophils # Man Lymphocytes # (Manual) Monocytes # (Manual) PT INR ABG pH 7.333 L 7.332 L POC ABG pCO2 POC ABG pO2 ABG pO2 ABG HCO3 26.9 H ABG O2 Saturation ABG Base Excess -2.4 L ABG Hemoglobin 6.8 L 7.2 L ABG Oxyhemoglobin ABG Sodium ABG Potassium ABG Chloride ABG Glucose Oxyhemoglobin 93.0 L 93.1 L Sodium Potassium Chloride Carbon Dioxide BUN Creatinine Glucose POC Glucose Lactic Acid Calcium Phosphorus Magnesium Total Bilirubin AST ALT Alkaline Phosphatase Total Protein Albumin Triglycerides Arterial Blood Glucose Arterial Blood Ionized Calcium Digoxin Crossmatch 12/27/20 12/27/20 12/27/20 06:40 06:40 11:22 WBC 4.4 L RBC 2.49 L Hgb 7.4 L Hct 22.4 L MCV MCHC RDW 17.1 H Plt Count 111 L Lymph % (Auto) 6.7 L [place] % (Auto) 12.6 H Eos % (Auto) Lymph # (Auto) 0.3 L [place] # (Auto) Eos # (Auto) Seg Neutrophils % 77.6 H Seg Neuts % (Manual) Lymphocytes % (Manual) Monocytes % (Manual) Seg Neutrophils # Seg Neutrophils # Man Lymphocytes # (Manual) Monocytes # (Manual) PT INR ABG pH POC ABG pCO2 POC ABG pO2 ABG pO2 ABG HCO3 ABG O2 Saturation ABG Base Excess ABG Hemoglobin ABG Oxyhemoglobin ABG Sodium ABG Potassium ABG Chloride ABG Glucose Oxyhemoglobin Sodium Potassium Chloride Carbon Dioxide BUN 64 H Creatinine 9.8 H Glucose 147 H POC Glucose 134 H Lactic Acid Calcium 8.3 L Phosphorus 5.00 H Magnesium Total Bilirubin 3.70 H AST 72 H ALT Alkaline Phosphatase 142 H Total Protein 5.1 L D Albumin 2.9 L Triglycerides Arterial Blood Glucose Arterial Blood Ionized Calcium Digoxin Crossmatch 12/27/20 12/27/20 12/28/20 17:29 23:31 03:09 WBC RBC Hgb Hct MCV MCHC RDW Plt Count Lymph % (Auto) [place] % (Auto) Eos % (Auto) Lymph # (Auto) [place] # (Auto) Eos # (Auto) Seg Neutrophils % Seg Neuts % (Manual) Lymphocytes % (Manual) Monocytes % (Manual) Seg Neutrophils # Seg Neutrophils # Man Lymphocytes # (Manual) Monocytes # (Manual) PT INR ABG pH 7.474 H POC ABG pCO2 POC ABG pO2 ABG pO2 ABG HCO3 ABG O2 Saturation ABG Base Excess ABG Hemoglobin 7.8 L ABG Oxyhemoglobin ABG Sodium ABG Potassium ABG Chloride ABG Glucose Oxyhemoglobin Sodium Potassium Chloride Carbon Dioxide BUN Creatinine Glucose POC Glucose 121 H 131 H Lactic Acid Calcium Phosphorus Magnesium Total Bilirubin AST ALT Alkaline Phosphatase Total Protein Albumin Triglycerides Arterial Blood Glucose Arterial Blood Ionized Calcium Digoxin Crossmatch 12/28/20 12/28/20 12/28/20 05:37 05:40 05:40 WBC 4.3 L RBC 2.40 L Hgb 7.2 L Hct 21.5 L MCV MCHC RDW 17.4 H Plt Count 112 L Lymph % (Auto) 6.5 L [place] % (Auto) 16.7 H Eos % (Auto) Lymph # (Auto) 0.3 L [place] # (Auto) Eos # (Auto) Seg Neutrophils % 71.1 H Seg Neuts % (Manual) Lymphocytes % (Manual) Monocytes % (Manual) Seg Neutrophils # Seg Neutrophils # Man Lymphocytes # (Manual) Monocytes # (Manual) PT INR ABG pH POC ABG pCO2 POC ABG pO2 ABG pO2 ABG HCO3 ABG O2 Saturation ABG Base Excess ABG Hemoglobin ABG Oxyhemoglobin ABG Sodium ABG Potassium ABG Chloride ABG Glucose Oxyhemoglobin Sodium Potassium Chloride Carbon Dioxide BUN 85 H Creatinine 11.5 H Glucose 132 H POC Glucose 121 H Lactic Acid Calcium 8.2 L Phosphorus Magnesium 2.40 H Total Bilirubin 3.80 H AST 70 H ALT Alkaline Phosphatase 176 H Total Protein 5.0 L Albumin 2.9 L Triglycerides Arterial Blood Glucose Arterial Blood Ionized Calcium Digoxin Crossmatch 12/28/20 12/28/20 12/28/20 11:34 15:00 17:35 WBC RBC Hgb Hct MCV MCHC RDW Plt Count Lymph % (Auto) [place] % (Auto) Eos % (Auto) Lymph # (Auto) [place] # (Auto) Eos # (Auto) Seg Neutrophils % Seg Neuts % (Manual) Lymphocytes % (Manual) Monocytes % (Manual) Seg Neutrophils # Seg Neutrophils # Man Lymphocytes # (Manual) Monocytes # (Manual) PT INR ABG pH 7.461 H POC ABG pCO2 POC ABG pO2 72.2 L ABG pO2 ABG HCO3 ABG O2 Saturation ABG Base Excess ABG Hemoglobin 8.2 L ABG Oxyhemoglobin 93.6 L ABG Sodium 134.1 L ABG Potassium 3.2 L ABG Chloride ABG Glucose 135 H Oxyhemoglobin Sodium Potassium Chloride Carbon Dioxide BUN Creatinine Glucose POC Glucose 137 H 144 H Lactic Acid Calcium Phosphorus Magnesium Total Bilirubin AST ALT Alkaline Phosphatase Total Protein Albumin Triglycerides Arterial Blood Glucose 135 H Arterial Blood Ionized Calcium 4.4 L Digoxin Crossmatch 12/28/20 12/28/20 12/29/20 19:44 Unknown 00:21 WBC RBC Hgb Hct MCV MCHC RDW Plt Count Lymph % (Auto) [place] % (Auto) Eos % (Auto) Lymph # (Auto) [place] # (Auto) Eos # (Auto) Seg Neutrophils % Seg Neuts % (Manual) Lymphocytes % (Manual) Monocytes % (Manual) Seg Neutrophils # Seg Neutrophils # Man Lymphocytes # (Manual) Monocytes # (Manual) PT INR ABG pH 7.474 H POC ABG pCO2 POC ABG pO2 ABG pO2 ABG HCO3 ABG O2 Saturation ABG Base Excess ABG Hemoglobin 7.8 L ABG Oxyhemoglobin ABG Sodium 133.2 L ABG Potassium ABG Chloride ABG Glucose 139 H Oxyhemoglobin Sodium 135 L Potassium Chloride 96.6 L Carbon Dioxide BUN 47 H Creatinine 7.4 H Glucose 130 H POC Glucose 142 H Lactic Acid Calcium 8.3 L Phosphorus Magnesium Total Bilirubin AST ALT Alkaline Phosphatase Total Protein Albumin Triglycerides Arterial Blood Glucose 139 H Arterial Blood Ionized Calcium 4.3 L Digoxin Crossmatch 12/29/20 12/29/20 12/29/20 05:16 05:16 05:26 WBC RBC 2.53 L Hgb 7.7 L Hct 22.8 L MCV MCHC RDW 17.0 H Plt Count 130 L Lymph % (Auto) [place] % (Auto) Eos % (Auto) Lymph # (Auto) [place] # (Auto) Eos # (Auto) Seg Neutrophils % Seg Neuts % (Manual) 79.0 H Lymphocytes % (Manual) 9.0 L Monocytes % (Manual) Seg Neutrophils # Seg Neutrophils # Man Lymphocytes # (Manual) 0.6 L Monocytes # (Manual) PT INR ABG pH POC ABG pCO2 POC ABG pO2 ABG pO2 ABG HCO3 ABG O2 Saturation ABG Base Excess ABG Hemoglobin ABG Oxyhemoglobin ABG Sodium ABG Potassium ABG Chloride ABG Glucose Oxyhemoglobin Sodium Potassium 3.4 L Chloride 96.6 L Carbon Dioxide BUN 59 H Creatinine 8.3 H Glucose 127 H POC Glucose 141 H Lactic Acid Calcium 8.2 L Phosphorus Magnesium Total Bilirubin 3.00 H AST 88 H ALT Alkaline Phosphatase 188 H Total Protein 5.1 L Albumin 2.8 L Triglycerides Arterial Blood Glucose Arterial Blood Ionized Calcium Digoxin Crossmatch 12/29/20 12/29/20 12/29/20 11:33 17:29 23:22 WBC RBC Hgb Hct MCV MCHC RDW Plt Count Lymph % (Auto) [place] % (Auto) Eos % (Auto) Lymph # (Auto) [place] # (Auto) Eos # (Auto) Seg Neutrophils % Seg Neuts % (Manual) Lymphocytes % (Manual) Monocytes % (Manual) Seg Neutrophils # Seg Neutrophils # Man Lymphocytes # (Manual) Monocytes # (Manual) PT INR ABG pH POC ABG pCO2 POC ABG pO2 ABG pO2 ABG HCO3 ABG O2 Saturation ABG Base Excess ABG Hemoglobin ABG Oxyhemoglobin ABG Sodium ABG Potassium ABG Chloride ABG Glucose Oxyhemoglobin Sodium Potassium Chloride Carbon Dioxide BUN Creatinine Glucose POC Glucose 144 H 130 H 117 H Lactic Acid Calcium Phosphorus Magnesium Total Bilirubin AST ALT Alkaline Phosphatase Total Protein Albumin Triglycerides Arterial Blood Glucose Arterial Blood Ionized Calcium Digoxin Crossmatch 12/30/20 12/30/20 12/30/20 05:23 08:15 09:00 WBC RBC Hgb Hct MCV MCHC RDW Plt Count Lymph % (Auto) [place] % (Auto) Eos % (Auto) Lymph # (Auto) [place] # (Auto) Eos # (Auto) Seg Neutrophils % Seg Neuts % (Manual) Lymphocytes % (Manual) Monocytes % (Manual) Seg Neutrophils # Seg Neutrophils # Man Lymphocytes # (Manual) Monocytes # (Manual) PT INR ABG pH POC ABG pCO2 POC ABG pO2 ABG pO2 ABG HCO3 ABG O2 Saturation ABG Base Excess ABG Hemoglobin ABG Oxyhemoglobin ABG Sodium ABG Potassium ABG Chloride ABG Glucose Oxyhemoglobin Sodium 135 L Potassium Chloride 95.9 L Carbon Dioxide BUN 85 H Creatinine 10.6 H Glucose 128 H POC Glucose 135 H 127 H Lactic Acid Calcium 8.3 L Phosphorus Magnesium Total Bilirubin 2.40 H AST 85 H ALT Alkaline Phosphatase 216 H Total Protein 5.3 L Albumin 2.6 L Triglycerides 155 H Arterial Blood Glucose Arterial Blood Ionized Calcium Digoxin Crossmatch 12/30/20 12/30/20 12/30/20 09:00 11:53 15:49 WBC RBC 2.61 L Hgb 7.8 L Hct 23.7 L MCV MCHC RDW 17.3 H Plt Count Lymph % (Auto) [place] % (Auto) Eos % (Auto) Lymph # (Auto) [place] # (Auto) Eos # (Auto) Seg Neutrophils % Seg Neuts % (Manual) Lymphocytes % (Manual) Monocytes % (Manual) Seg Neutrophils # Seg Neutrophils # Man Lymphocytes # (Manual) Monocytes # (Manual) PT INR ABG pH POC ABG pCO2 POC ABG pO2 ABG pO2 ABG HCO3 ABG O2 Saturation ABG Base Excess ABG Hemoglobin ABG Oxyhemoglobin ABG Sodium ABG Potassium ABG Chloride ABG Glucose Oxyhemoglobin Sodium Potassium Chloride Carbon Dioxide BUN Creatinine Glucose POC Glucose 155 H 146 H Lactic Acid Calcium Phosphorus Magnesium Total Bilirubin AST ALT Alkaline Phosphatase Total Protein Albumin Triglycerides Arterial Blood Glucose Arterial Blood Ionized Calcium Digoxin Crossmatch 12/30/20 12/30/20 12/31/20 17:53 23:45 03:56 WBC RBC Hgb Hct MCV MCHC RDW Plt Count Lymph % (Auto) [place] % (Auto) Eos % (Auto) Lymph # (Auto) [place] # (Auto) Eos # (Auto) Seg Neutrophils % Seg Neuts % (Manual) Lymphocytes % (Manual) Monocytes % (Manual) Seg Neutrophils # Seg Neutrophils # Man Lymphocytes # (Manual) Monocytes # (Manual) PT INR ABG pH POC ABG pCO2 POC ABG pO2 49.4 L ABG pO2 ABG HCO3 ABG O2 Saturation ABG Base Excess ABG Hemoglobin 10.3 L ABG Oxyhemoglobin 84.2 L ABG Sodium 133.1 L ABG Potassium ABG Chloride ABG Glucose 173 H Oxyhemoglobin Sodium Potassium Chloride Carbon Dioxide BUN Creatinine Glucose POC Glucose 139 H 173 H Lactic Acid Calcium Phosphorus Magnesium Total Bilirubin AST ALT Alkaline Phosphatase Total Protein Albumin Triglycerides Arterial Blood Glucose 173 H Arterial Blood Ionized Calcium Digoxin Crossmatch 12/31/20 12/31/20 12/31/20 05:07 06:51 06:51 WBC 20.3 H RBC 3.32 L Hgb 9.8 L Hct 30.3 L D MCV MCHC RDW 17.3 H Plt Count Lymph % (Auto) [place] % (Auto) Eos % (Auto) Lymph # (Auto) [place] # (Auto) Eos # (Auto) Seg Neutrophils % Seg Neuts % (Manual) 87.0 H Lymphocytes % (Manual) 10.0 L Monocytes % (Manual) Seg Neutrophils # Seg Neutrophils # Man 17.7 H Lymphocytes # (Manual) Monocytes # (Manual) PT INR ABG pH POC ABG pCO2 POC ABG pO2 ABG pO2 ABG HCO3 ABG O2 Saturation ABG Base Excess ABG Hemoglobin ABG Oxyhemoglobin ABG Sodium ABG Potassium ABG Chloride ABG Glucose Oxyhemoglobin Sodium Potassium 5.2 H D Chloride Carbon Dioxide BUN 62 H Creatinine 8.4 H Glucose 116 H POC Glucose 120 H Lactic Acid Calcium Phosphorus Magnesium 1.60 L Total Bilirubin AST ALT Alkaline Phosphatase Total Protein Albumin Triglycerides Arterial Blood Glucose Arterial Blood Ionized Calcium Digoxin Crossmatch 12/31/20 12/31/20 12/31/20 09:38 12:19 12:22 WBC RBC Hgb Hct MCV MCHC RDW Plt Count Lymph % (Auto) [place] % (Auto) Eos % (Auto) Lymph # (Auto) [place] # (Auto) Eos # (Auto) Seg Neutrophils % Seg Neuts % (Manual) Lymphocytes % (Manual) Monocytes % (Manual) Seg Neutrophils # Seg Neutrophils # Man Lymphocytes # (Manual) Monocytes # (Manual) PT INR ABG pH POC ABG pCO2 POC ABG pO2 ABG pO2 354.0 H ABG HCO3 ABG O2 Saturation 99.6 H ABG Base Excess ABG Hemoglobin 9.1 L ABG Oxyhemoglobin ABG Sodium ABG Potassium ABG Chloride ABG Glucose Oxyhemoglobin Sodium Potassium 5.2 H Chloride Carbon Dioxide BUN Creatinine Glucose POC Glucose 132 H Lactic Acid Calcium Phosphorus Magnesium Total Bilirubin AST ALT Alkaline Phosphatase Total Protein Albumin Triglycerides Arterial Blood Glucose Arterial Blood Ionized Calcium Digoxin Crossmatch 12/31/20 01/01/21 01/01/21 23:23 03:03 05:04 WBC RBC Hgb Hct MCV MCHC RDW Plt Count Lymph % (Auto) [place] % (Auto) Eos % (Auto) Lymph # (Auto) [place] # (Auto) Eos # (Auto) Seg Neutrophils % Seg Neuts % (Manual) Lymphocytes % (Manual) Monocytes % (Manual) Seg Neutrophils # Seg Neutrophils # Man Lymphocytes # (Manual) Monocytes # (Manual) PT INR ABG pH POC ABG pCO2 POC ABG pO2 79.6 L ABG pO2 ABG HCO3 ABG O2 Saturation ABG Base Excess ABG Hemoglobin 9.2 L ABG Oxyhemoglobin ABG Sodium 131.6 L ABG Potassium 5.8 H ABG Chloride ABG Glucose 177 H Oxyhemoglobin Sodium Potassium Chloride Carbon Dioxide BUN Creatinine Glucose POC Glucose 174 H 167 H Lactic Acid Calcium Phosphorus Magnesium Total Bilirubin AST ALT Alkaline Phosphatase Total Protein Albumin Triglycerides Arterial Blood Glucose 177 H Arterial Blood Ionized Calcium Digoxin Crossmatch 01/01/21 01/01/21 01/01/21 07:31 07:31 11:31 WBC 26.1 H RBC 2.95 L Hgb 8.6 L Hct 27.1 L MCV MCHC RDW 18.2 H Plt Count Lymph % (Auto) [place] % (Auto) Eos % (Auto) Lymph # (Auto) [place] # (Auto) Eos # (Auto) Seg Neutrophils % Seg Neuts % (Manual) 96.0 H Lymphocytes % (Manual) 4.0 L Monocytes % (Manual) Seg Neutrophils # Seg Neutrophils # Man 25.1 H Lymphocytes # (Manual) 1.0 L Monocytes # (Manual) PT INR ABG pH POC ABG pCO2 POC ABG pO2 ABG pO2 ABG HCO3 ABG O2 Saturation ABG Base Excess ABG Hemoglobin ABG Oxyhemoglobin ABG Sodium ABG Potassium ABG Chloride ABG Glucose Oxyhemoglobin Sodium Potassium 6.0 H Chloride Carbon Dioxide 21 L BUN 89 H Creatinine 10.5 H Glucose 179 H POC Glucose Lactic Acid Calcium Phosphorus Magnesium Total Bilirubin AST ALT Alkaline Phosphatase Total Protein Albumin Triglycerides Arterial Blood Glucose Arterial Blood Ionized Calcium Digoxin Crossmatch See Detail 01/01/21 01/01/21 01/01/21 11:51 12:45 16:52 WBC RBC Hgb Hct MCV MCHC RDW Plt Count Lymph % (Auto) [place] % (Auto) Eos % (Auto) Lymph # (Auto) [place] # (Auto) Eos # (Auto) Seg Neutrophils % Seg Neuts % (Manual) Lymphocytes % (Manual) Monocytes % (Manual) Seg Neutrophils # Seg Neutrophils # Man Lymphocytes # (Manual) Monocytes # (Manual) PT 16.9 H INR 1.39 H ABG pH POC ABG pCO2 POC ABG pO2 ABG pO2 ABG HCO3 ABG O2 Saturation ABG Base Excess ABG Hemoglobin ABG Oxyhemoglobin ABG Sodium ABG Potassium ABG Chloride ABG Glucose Oxyhemoglobin Sodium Potassium Chloride Carbon Dioxide BUN Creatinine Glucose POC Glucose 157 H 177 H Lactic Acid Calcium Phosphorus Magnesium Total Bilirubin AST ALT Alkaline Phosphatase Total Protein Albumin Triglycerides Arterial Blood Glucose Arterial Blood Ionized Calcium Digoxin Crossmatch 01/01/21 01/01/21 01/01/21 17:58 17:58 20:12 WBC 26.9 H RBC 3.14 L Hgb 9.3 L Hct 29.6 L MCV MCHC RDW 17.5 H Plt Count Lymph % (Auto) [place] % (Auto) Eos % (Auto) Lymph # (Auto) [place] # (Auto) Eos # (Auto) Seg Neutrophils % Seg Neuts % (Manual) 84.0 H Lymphocytes % (Manual) 4.0 L Monocytes % (Manual) 12.0 H Seg Neutrophils # Seg Neutrophils # Man 22.6 H Lymphocytes # (Manual) 1.1 L Monocytes # (Manual) 3.2 H PT INR ABG pH POC ABG pCO2 POC ABG pO2 ABG pO2 ABG HCO3 ABG O2 Saturation ABG Base Excess ABG Hemoglobin ABG Oxyhemoglobin ABG Sodium ABG Potassium ABG Chloride ABG Glucose Oxyhemoglobin Sodium 136 L Potassium 6.2 H* Chloride Carbon Dioxide 21 L BUN 92 H Creatinine 10.8 H Glucose 171 H POC Glucose 288 H Lactic Acid Calcium Phosphorus Magnesium Total Bilirubin 2.10 H AST 223 H ALT 100 H Alkaline Phosphatase 206 H Total Protein 4.8 L Albumin 1.9 L Triglycerides Arterial Blood Glucose Arterial Blood Ionized Calcium Digoxin Crossmatch 01/02/21 01/02/21 01/02/21 00:12 00:45 03:05 WBC RBC Hgb Hct MCV MCHC RDW Plt Count Lymph % (Auto) [place] % (Auto) Eos % (Auto) Lymph # (Auto) [place] # (Auto) Eos # (Auto) Seg Neutrophils % Seg Neuts % (Manual) Lymphocytes % (Manual) Monocytes % (Manual) Seg Neutrophils # Seg Neutrophils # Man Lymphocytes # (Manual) Monocytes # (Manual) PT INR ABG pH POC ABG pCO2 POC ABG pO2 81.8 L ABG pO2 ABG HCO3 ABG O2 Saturation ABG Base Excess ABG Hemoglobin 8.0 L ABG Oxyhemoglobin ABG Sodium 129.8 L ABG Potassium 5.4 H ABG Chloride ABG Glucose 257 H Oxyhemoglobin Sodium 136 L Potassium 5.8 H Chloride 96.6 L Carbon Dioxide BUN 95 H Creatinine 11.2 H Glucose 238 H POC Glucose 223 H Lactic Acid Calcium Phosphorus Magnesium Total Bilirubin AST ALT Alkaline Phosphatase Total Protein Albumin Triglycerides Arterial Blood Glucose 257 H Arterial Blood Ionized Calcium 4.0 L Digoxin Crossmatch 01/02/21 01/02/21 01/02/21 06:25 08:00 08:00 WBC 17.5 H RBC 2.31 L Hgb 6.7 L Hct 22.1 L D MCV 96 H MCHC 30 L RDW 18.4 H Plt Count Lymph % (Auto) [place] % (Auto) Eos % (Auto) Lymph # (Auto) [place] # (Auto) Eos # (Auto) Seg Neutrophils % Seg Neuts % (Manual) Lymphocytes % (Manual) Monocytes % (Manual) Seg Neutrophils # Seg Neutrophils # Man Lymphocytes # (Manual) Monocytes # (Manual) PT INR ABG pH POC ABG pCO2 POC ABG pO2 ABG pO2 ABG HCO3 ABG O2 Saturation ABG Base Excess ABG Hemoglobin ABG Oxyhemoglobin ABG Sodium ABG Potassium ABG Chloride ABG Glucose Oxyhemoglobin Sodium 134 L Potassium 5.3 H Chloride 92.9 L Carbon Dioxide BUN 101 H Creatinine 10.9 H Glucose 560 H* POC Glucose 239 H Lactic Acid Calcium 7.6 L Phosphorus 6.50 H Magnesium Total Bilirubin AST ALT Alkaline Phosphatase Total Protein Albumin Triglycerides Arterial Blood Glucose Arterial Blood Ionized Calcium Digoxin Crossmatch 01/02/21 01/02/21 01/02/21 11:26 15:00 17:57 WBC RBC Hgb Hct MCV MCHC RDW Plt Count Lymph % (Auto) [place] % (Auto) Eos % (Auto) Lymph # (Auto) [place] # (Auto) Eos # (Auto) Seg Neutrophils % Seg Neuts % (Manual) Lymphocytes % (Manual) Monocytes % (Manual) Seg Neutrophils # Seg Neutrophils # Man Lymphocytes # (Manual) Monocytes # (Manual) PT INR ABG pH POC ABG pCO2 POC ABG pO2 ABG pO2 ABG HCO3 ABG O2 Saturation ABG Base Excess ABG Hemoglobin ABG Oxyhemoglobin ABG Sodium ABG Potassium ABG Chloride ABG Glucose Oxyhemoglobin Sodium Potassium Chloride Carbon Dioxide BUN Creatinine Glucose 241 H POC Glucose 205 H 272 H Lactic Acid Calcium Phosphorus Magnesium Total Bilirubin AST ALT Alkaline Phosphatase Total Protein Albumin Triglycerides Arterial Blood Glucose Arterial Blood Ionized Calcium Digoxin Crossmatch 01/02/21 01/02/21 01/03/21 23:25 23:43 03:45 WBC RBC Hgb Hct MCV MCHC RDW Plt Count Lymph % (Auto) [place] % (Auto) Eos % (Auto) Lymph # (Auto) [place] # (Auto) Eos # (Auto) Seg Neutrophils % Seg Neuts % (Manual) Lymphocytes % (Manual) Monocytes % (Manual) Seg Neutrophils # Seg Neutrophils # Man Lymphocytes # (Manual) Monocytes # (Manual) PT INR ABG pH POC ABG pCO2 48.3 H POC ABG pO2 134.4 H 79.7 L ABG pO2 ABG HCO3 ABG O2 Saturation ABG Base Excess ABG Hemoglobin 7.7 L 8.6 L ABG Oxyhemoglobin ABG Sodium 131.8 L 130.4 L ABG Potassium ABG Chloride 97.0 L ABG Glucose 218 H 238 H Oxyhemoglobin Sodium Potassium Chloride Carbon Dioxide BUN Creatinine Glucose POC Glucose 218 H Lactic Acid Calcium Phosphorus Magnesium Total Bilirubin AST ALT Alkaline Phosphatase Total Protein Albumin Triglycerides Arterial Blood Glucose 218 H 238 H Arterial Blood Ionized Calcium 4.1 L 4.0 L Digoxin Crossmatch 01/03/21 01/03/21 01/03/21 04:37 04:37 05:39 WBC 15.2 H RBC 2.38 L Hgb 7.3 L Hct 21.6 L MCV MCHC RDW 16.6 H Plt Count Lymph % (Auto) [place] % (Auto) Eos % (Auto) Lymph # (Auto) [place] # (Auto) Eos # (Auto) Seg Neutrophils % Seg Neuts % (Manual) Lymphocytes % (Manual) Monocytes % (Manual) Seg Neutrophils # Seg Neutrophils # Man Lymphocytes # (Manual) Monocytes # (Manual) PT INR ABG pH POC ABG pCO2 POC ABG pO2 ABG pO2 ABG HCO3 ABG O2 Saturation ABG Base Excess ABG Hemoglobin ABG Oxyhemoglobin ABG Sodium ABG Potassium ABG Chloride ABG Glucose Oxyhemoglobin Sodium 136 L Potassium Chloride 94.5 L Carbon Dioxide BUN 69 H Creatinine 8.0 H Glucose 219 H POC Glucose 222 H Lactic Acid Calcium 7.8 L Phosphorus 4.80 H D Magnesium Total Bilirubin AST ALT Alkaline Phosphatase Total Protein Albumin Triglycerides Arterial Blood Glucose Arterial Blood Ionized Calcium Digoxin Crossmatch 01/03/21 01/03/21 01/03/21 11:29 18:49 23:37 WBC RBC Hgb Hct MCV MCHC RDW Plt Count Lymph % (Auto) [place] % (Auto) Eos % (Auto) Lymph # (Auto) [place] # (Auto) Eos # (Auto) Seg Neutrophils % Seg Neuts % (Manual) Lymphocytes % (Manual) Monocytes % (Manual) Seg Neutrophils # Seg Neutrophils # Man Lymphocytes # (Manual) Monocytes # (Manual) PT INR ABG pH POC ABG pCO2 POC ABG pO2 ABG pO2 ABG HCO3 ABG O2 Saturation ABG Base Excess ABG Hemoglobin ABG Oxyhemoglobin ABG Sodium ABG Potassium ABG Chloride ABG Glucose Oxyhemoglobin Sodium Potassium Chloride Carbon Dioxide BUN Creatinine Glucose POC Glucose 232 H 129 H 140 H Lactic Acid Calcium Phosphorus Magnesium Total Bilirubin AST ALT Alkaline Phosphatase Total Protein Albumin Triglycerides Arterial Blood Glucose Arterial Blood Ionized Calcium Digoxin Crossmatch 01/04/21 01/04/21 01/04/21 03:22 04:38 04:38 WBC 11.1 H RBC 2.89 L Hgb 8.9 L Hct 26.2 L MCV MCHC RDW 16.1 H Plt Count Lymph % (Auto) [place] % (Auto) Eos % (Auto) Lymph # (Auto) [place] # (Auto) Eos # (Auto) Seg Neutrophils % Seg Neuts % (Manual) Lymphocytes % (Manual) Monocytes % (Manual) Seg Neutrophils # Seg Neutrophils # Man Lymphocytes # (Manual) Monocytes # (Manual) PT INR ABG pH POC ABG pCO2 POC ABG pO2 82.3 L ABG pO2 ABG HCO3 ABG O2 Saturation ABG Base Excess ABG Hemoglobin 8.9 L ABG Oxyhemoglobin ABG Sodium 130.5 L ABG Potassium ABG Chloride ABG Glucose 124 H Oxyhemoglobin Sodium Potassium Chloride 95.5 L Carbon Dioxide BUN 87 H Creatinine 9.7 H Glucose 118 H POC Glucose Lactic Acid Calcium 7.7 L Phosphorus Magnesium Total Bilirubin AST ALT Alkaline Phosphatase Total Protein Albumin Triglycerides Arterial Blood Glucose 124 H Arterial Blood Ionized Calcium 3.5 L Digoxin Crossmatch 01/04/21 01/04/21 01/04/21 05:39 12:04 18:04 WBC RBC Hgb Hct MCV MCHC RDW Plt Count Lymph % (Auto) [place] % (Auto) Eos % (Auto) Lymph # (Auto) [place] # (Auto) Eos # (Auto) Seg Neutrophils % Seg Neuts % (Manual) Lymphocytes % (Manual) Monocytes % (Manual) Seg Neutrophils # Seg Neutrophils # Man Lymphocytes # (Manual) Monocytes # (Manual) PT INR ABG pH POC ABG pCO2 POC ABG pO2 ABG pO2 ABG HCO3 ABG O2 Saturation ABG Base Excess ABG Hemoglobin ABG Oxyhemoglobin ABG Sodium ABG Potassium ABG Chloride ABG Glucose Oxyhemoglobin Sodium Potassium Chloride Carbon Dioxide BUN Creatinine Glucose POC Glucose 134 H 125 H 131 H Lactic Acid Calcium Phosphorus Magnesium Total Bilirubin AST ALT Alkaline Phosphatase Total Protein Albumin Triglycerides Arterial Blood Glucose Arterial Blood Ionized Calcium Digoxin Crossmatch 01/04/21 01/05/21 01/05/21 23:41 03:23 04:49 WBC RBC Hgb Hct MCV MCHC RDW Plt Count Lymph % (Auto) [place] % (Auto) Eos % (Auto) Lymph # (Auto) [place] # (Auto) Eos # (Auto) Seg Neutrophils % Seg Neuts % (Manual) Lymphocytes % (Manual) Monocytes % (Manual) Seg Neutrophils # Seg Neutrophils # Man Lymphocytes # (Manual) Monocytes # (Manual) PT INR ABG pH POC ABG pCO2 POC ABG pO2 62.8 L ABG pO2 ABG HCO3 ABG O2 Saturation ABG Base Excess ABG Hemoglobin 9.5 L ABG Oxyhemoglobin 92.0 L ABG Sodium 130.1 L ABG Potassium ABG Chloride ABG Glucose 148 H Oxyhemoglobin Sodium Potassium Chloride 96.9 L Carbon Dioxide BUN 57 H Creatinine 6.7 H Glucose 135 H POC Glucose 132 H Lactic Acid Calcium 8.0 L Phosphorus Magnesium Total Bilirubin AST ALT Alkaline Phosphatase Total Protein Albumin Triglycerides Arterial Blood Glucose 148 H Arterial Blood Ionized Calcium 4.1 L Digoxin Crossmatch 01/05/21 01/05/21 01/05/21 05:04 11:48 12:39 WBC RBC 3.03 L Hgb 9.3 L Hct 27.6 L MCV MCHC RDW 16.5 H Plt Count Lymph % (Auto) [place] % (Auto) Eos % (Auto) Lymph # (Auto) [place] # (Auto) Eos # (Auto) Seg Neutrophils % Seg Neuts % (Manual) Lymphocytes % (Manual) Monocytes % (Manual) Seg Neutrophils # Seg Neutrophils # Man Lymphocytes # (Manual) Monocytes # (Manual) PT INR ABG pH POC ABG pCO2 POC ABG pO2 ABG pO2 ABG HCO3 ABG O2 Saturation ABG Base Excess ABG Hemoglobin ABG Oxyhemoglobin ABG Sodium ABG Potassium ABG Chloride ABG Glucose Oxyhemoglobin Sodium Potassium Chloride Carbon Dioxide BUN Creatinine Glucose POC Glucose 147 H 162 H Lactic Acid Calcium Phosphorus Magnesium Total Bilirubin AST ALT Alkaline Phosphatase Total Protein Albumin Triglycerides Arterial Blood Glucose Arterial Blood Ionized Calcium Digoxin Crossmatch 01/05/21 01/05/21 01/06/21 17:50 23:32 04:15 WBC RBC Hgb Hct MCV MCHC RDW Plt Count Lymph % (Auto) [place] % (Auto) Eos % (Auto) Lymph # (Auto) [place] # (Auto) Eos # (Auto) Seg Neutrophils % Seg Neuts % (Manual) Lymphocytes % (Manual) Monocytes % (Manual) Seg Neutrophils # Seg Neutrophils # Man Lymphocytes # (Manual) Monocytes # (Manual) PT INR ABG pH POC ABG pCO2 POC ABG pO2 ABG pO2 191.0 H ABG HCO3 ABG O2 Saturation 99.2 H ABG Base Excess ABG Hemoglobin 9.0 L ABG Oxyhemoglobin ABG Sodium ABG Potassium ABG Chloride ABG Glucose Oxyhemoglobin Sodium Potassium Chloride Carbon Dioxide BUN Creatinine Glucose POC Glucose 155 H 115 H Lactic Acid Calcium Phosphorus Magnesium Total Bilirubin AST ALT Alkaline Phosphatase Total Protein Albumin Triglycerides Arterial Blood Glucose Arterial Blood Ionized Calcium Digoxin Crossmatch 01/06/21 01/06/21 01/06/21 04:45 05:56 07:03 WBC RBC 2.95 L Hgb 9.1 L Hct 26.8 L MCV MCHC RDW 16.8 H Plt Count Lymph % (Auto) [place] % (Auto) Eos % (Auto) Lymph # (Auto) [place] # (Auto) Eos # (Auto) Seg Neutrophils % Seg Neuts % (Manual) Lymphocytes % (Manual) Monocytes % (Manual) Seg Neutrophils # Seg Neutrophils # Man Lymphocytes # (Manual) Monocytes # (Manual) PT INR ABG pH POC ABG pCO2 POC ABG pO2 ABG pO2 ABG HCO3 ABG O2 Saturation ABG Base Excess ABG Hemoglobin ABG Oxyhemoglobin ABG Sodium ABG Potassium ABG Chloride ABG Glucose Oxyhemoglobin Sodium 135 L Potassium Chloride 95.9 L Carbon Dioxide BUN 82 H Creatinine 8.7 H Glucose 127 H POC Glucose 136 H Lactic Acid Calcium 8.3 L Phosphorus Magnesium Total Bilirubin AST ALT Alkaline Phosphatase Total Protein Albumin Triglycerides Arterial Blood Glucose Arterial Blood Ionized Calcium Digoxin Crossmatch 01/06/21 01/06/21 01/06/21 07:10 11:04 13:38 WBC RBC Hgb Hct MCV MCHC RDW Plt Count Lymph % (Auto) [place] % (Auto) Eos % (Auto) Lymph # (Auto) [place] # (Auto) Eos # (Auto) Seg Neutrophils % Seg Neuts % (Manual) Lymphocytes % (Manual) Monocytes % (Manual) Seg Neutrophils # Seg Neutrophils # Man Lymphocytes # (Manual) Monocytes # (Manual) PT INR ABG pH POC ABG pCO2 POC ABG pO2 ABG pO2 ABG HCO3 ABG O2 Saturation ABG Base Excess ABG Hemoglobin ABG Oxyhemoglobin ABG Sodium ABG Potassium ABG Chloride ABG Glucose Oxyhemoglobin Sodium Potassium Chloride Carbon Dioxide BUN Creatinine Glucose POC Glucose 178 H 155 H Lactic Acid Calcium Phosphorus Magnesium Total Bilirubin AST ALT Alkaline Phosphatase Total Protein Albumin Triglycerides Arterial Blood Glucose Arterial Blood Ionized Calcium Digoxin Crossmatch See Detail 01/06/21 01/06/21 01/07/21 17:35 22:21 03:07 WBC RBC Hgb Hct MCV MCHC RDW Plt Count Lymph % (Auto) [place] % (Auto) Eos % (Auto) Lymph # (Auto) [place] # (Auto) Eos # (Auto) Seg Neutrophils % Seg Neuts % (Manual) Lymphocytes % (Manual) Monocytes % (Manual) Seg Neutrophils # Seg Neutrophils # Man Lymphocytes # (Manual) Monocytes # (Manual) PT INR ABG pH POC ABG pCO2 POC ABG pO2 ABG pO2 ABG HCO3 ABG O2 Saturation ABG Base Excess ABG Hemoglobin 11.9 L ABG Oxyhemoglobin ABG Sodium 135.6 L ABG Potassium ABG Chloride ABG Glucose 181 H Oxyhemoglobin Sodium Potassium Chloride Carbon Dioxide BUN Creatinine Glucose POC Glucose 138 H 202 H Lactic Acid Calcium Phosphorus Magnesium Total Bilirubin AST ALT Alkaline Phosphatase Total Protein Albumin Triglycerides Arterial Blood Glucose 181 H Arterial Blood Ionized Calcium 4.3 L Digoxin Crossmatch 01/07/21 01/07/21 01/07/21 04:50 05:21 08:37 WBC 12.4 H RBC Hgb 11.1 L Hct 33.3 L D MCV MCHC RDW 17.0 H Plt Count Lymph % (Auto) 3.2 L [place] % (Auto) 9.4 H Eos % (Auto) Lymph # (Auto) 0.4 L [place] # (Auto) 1.2 H Eos # (Auto) Seg Neutrophils % 86.6 H Seg Neuts % (Manual) Lymphocytes % (Manual) Monocytes % (Manual) Seg Neutrophils # 10.7 H Seg Neutrophils # Man Lymphocytes # (Manual) Monocytes # (Manual) PT INR ABG pH POC ABG pCO2 POC ABG pO2 ABG pO2 ABG HCO3 ABG O2 Saturation ABG Base Excess ABG Hemoglobin ABG Oxyhemoglobin ABG Sodium ABG Potassium ABG Chloride ABG Glucose Oxyhemoglobin Sodium Potassium Chloride Carbon Dioxide BUN 60 H Creatinine 6.3 H Glucose 154 H POC Glucose 177 H Lactic Acid Calcium 8.3 L Phosphorus Magnesium Total Bilirubin AST ALT Alkaline Phosphatase Total Protein Albumin Triglycerides Arterial Blood Glucose Arterial Blood Ionized Calcium Digoxin Crossmatch 01/07/21 01/07/21 01/07/21 11:21 12:19 17:11 WBC RBC Hgb Hct MCV MCHC RDW Plt Count Lymph % (Auto) [place] % (Auto) Eos % (Auto) Lymph # (Auto) [place] # (Auto) Eos # (Auto) Seg Neutrophils % Seg Neuts % (Manual) Lymphocytes % (Manual) Monocytes % (Manual) Seg Neutrophils # Seg Neutrophils # Man Lymphocytes # (Manual) Monocytes # (Manual) PT INR ABG pH POC ABG pCO2 POC ABG pO2 ABG pO2 ABG HCO3 ABG O2 Saturation ABG Base Excess ABG Hemoglobin ABG Oxyhemoglobin ABG Sodium ABG Potassium ABG Chloride ABG Glucose Oxyhemoglobin Sodium Potassium Chloride Carbon Dioxide BUN Creatinine Glucose POC Glucose 144 H 137 H 119 H Lactic Acid Calcium Phosphorus Magnesium Total Bilirubin AST ALT Alkaline Phosphatase Total Protein Albumin Triglycerides Arterial Blood Glucose Arterial Blood Ionized Calcium Digoxin Crossmatch 01/07/21 01/07/21 01/08/21 17:14 23:39 04:34 WBC RBC Hgb Hct MCV MCHC RDW Plt Count Lymph % (Auto) [place] % (Auto) Eos % (Auto) Lymph # (Auto) [place] # (Auto) Eos # (Auto) Seg Neutrophils % Seg Neuts % (Manual) Lymphocytes % (Manual) Monocytes % (Manual) Seg Neutrophils # Seg Neutrophils # Man Lymphocytes # (Manual) Monocytes # (Manual) PT INR ABG pH 7.345 L POC ABG pCO2 POC ABG pO2 ABG pO2 67.4 L ABG HCO3 ABG O2 Saturation 94.3 L ABG Base Excess -3.9 L ABG Hemoglobin 8.9 L ABG Oxyhemoglobin ABG Sodium ABG Potassium ABG Chloride ABG Glucose Oxyhemoglobin 92.3 L Sodium Potassium Chloride Carbon Dioxide 20 L BUN 93 H Creatinine 8.8 H Glucose 120 H POC Glucose 129 H Lactic Acid Calcium Phosphorus Magnesium Total Bilirubin AST ALT Alkaline Phosphatase 133 H Total Protein 5.4 L Albumin 1.9 L Triglycerides Arterial Blood Glucose Arterial Blood Ionized Calcium Digoxin Crossmatch 01/08/21 01/08/21 01/08/21 05:26 11:38 17:19 WBC RBC Hgb Hct MCV MCHC RDW Plt Count Lymph % (Auto) [place] % (Auto) Eos % (Auto) Lymph # (Auto) [place] # (Auto) Eos # (Auto) Seg Neutrophils % Seg Neuts % (Manual) Lymphocytes % (Manual) Monocytes % (Manual) Seg Neutrophils # Seg Neutrophils # Man Lymphocytes # (Manual) Monocytes # (Manual) PT INR ABG pH POC ABG pCO2 POC ABG pO2 ABG pO2 ABG HCO3 ABG O2 Saturation ABG Base Excess ABG Hemoglobin ABG Oxyhemoglobin ABG Sodium ABG Potassium ABG Chloride ABG Glucose Oxyhemoglobin Sodium Potassium Chloride Carbon Dioxide BUN Creatinine Glucose POC Glucose 125 H 146 H 136 H Lactic Acid Calcium Phosphorus Magnesium Total Bilirubin AST ALT Alkaline Phosphatase Total Protein Albumin Triglycerides Arterial Blood Glucose Arterial Blood Ionized Calcium Digoxin Crossmatch 01/08/21 01/09/21 01/09/21 23:52 05:13 05:21 WBC RBC Hgb Hct MCV MCHC RDW Plt Count Lymph % (Auto) [place] % (Auto) Eos % (Auto) Lymph # (Auto) [place] # (Auto) Eos # (Auto) Seg Neutrophils % Seg Neuts % (Manual) Lymphocytes % (Manual) Monocytes % (Manual) Seg Neutrophils # Seg Neutrophils # Man Lymphocytes # (Manual) Monocytes # (Manual) PT INR ABG pH POC ABG pCO2 POC ABG pO2 ABG pO2 ABG HCO3 ABG O2 Saturation ABG Base Excess ABG Hemoglobin ABG Oxyhemoglobin ABG Sodium ABG Potassium ABG Chloride ABG Glucose Oxyhemoglobin Sodium Potassium Chloride Carbon Dioxide 16 L BUN 123 H Creatinine 10.8 H Glucose 145 H POC Glucose 143 H 144 H Lactic Acid Calcium Phosphorus 5.00 H D Magnesium 2.40 H Total Bilirubin AST ALT Alkaline Phosphatase Total Protein Albumin Triglycerides Arterial Blood Glucose Arterial Blood Ionized Calcium Digoxin Crossmatch 01/09/21 01/09/21 01/09/21 12:08 17:20 23:56 WBC RBC Hgb Hct MCV MCHC RDW Plt Count Lymph % (Auto) [place] % (Auto) Eos % (Auto) Lymph # (Auto) [place] # (Auto) Eos # (Auto) Seg Neutrophils % Seg Neuts % (Manual) Lymphocytes % (Manual) Monocytes % (Manual) Seg Neutrophils # Seg Neutrophils # Man Lymphocytes # (Manual) Monocytes # (Manual) PT INR ABG pH POC ABG pCO2 POC ABG pO2 ABG pO2 ABG HCO3 ABG O2 Saturation ABG Base Excess ABG Hemoglobin ABG Oxyhemoglobin ABG Sodium ABG Potassium ABG Chloride ABG Glucose Oxyhemoglobin Sodium Potassium Chloride Carbon Dioxide BUN Creatinine Glucose POC Glucose 153 H 160 H 158 H Lactic Acid Calcium Phosphorus Magnesium Total Bilirubin AST ALT Alkaline Phosphatase Total Protein Albumin Triglycerides Arterial Blood Glucose Arterial Blood Ionized Calcium Digoxin Crossmatch 01/10/21 01/10/21 01/10/21 04:52 05:44 07:41 WBC RBC Hgb Hct MCV MCHC RDW Plt Count Lymph % (Auto) [place] % (Auto) Eos % (Auto) Lymph # (Auto) [place] # (Auto) Eos # (Auto) Seg Neutrophils % Seg Neuts % (Manual) Lymphocytes % (Manual) Monocytes % (Manual) Seg Neutrophils # Seg Neutrophils # Man Lymphocytes # (Manual) Monocytes # (Manual) PT INR ABG pH POC ABG pCO2 POC ABG pO2 ABG pO2 ABG HCO3 ABG O2 Saturation ABG Base Excess ABG Hemoglobin ABG Oxyhemoglobin ABG Sodium ABG Potassium ABG Chloride ABG Glucose Oxyhemoglobin Sodium 135 L Potassium 3.5 L D Chloride 95.0 L Carbon Dioxide 21 L BUN 93 H Creatinine 8.3 H Glucose 127 H POC Glucose 135 H 157 H Lactic Acid Calcium Phosphorus Magnesium Total Bilirubin AST ALT Alkaline Phosphatase Total Protein Albumin Triglycerides Arterial Blood Glucose Arterial Blood Ionized Calcium Digoxin Crossmatch 01/10/21 01/10/21 01/10/21 09:26 12:03 17:44 WBC 18.2 H RBC 3.14 L Hgb 9.7 L Hct 28.2 L MCV MCHC RDW 16.5 H Plt Count Lymph % (Auto) [place] % (Auto) Eos % (Auto) Lymph # (Auto) [place] # (Auto) Eos # (Auto) Seg Neutrophils % Seg Neuts % (Manual) 95.0 H Lymphocytes % (Manual) 3.0 L Monocytes % (Manual) Seg Neutrophils # Seg Neutrophils # Man 17.3 H Lymphocytes # (Manual) 0.5 L Monocytes # (Manual) PT INR ABG pH POC ABG pCO2 POC ABG pO2 ABG pO2 ABG HCO3 ABG O2 Saturation ABG Base Excess ABG Hemoglobin ABG Oxyhemoglobin ABG Sodium ABG Potassium ABG Chloride ABG Glucose Oxyhemoglobin Sodium Potassium Chloride Carbon Dioxide BUN Creatinine Glucose POC Glucose 163 H 171 H Lactic Acid Calcium Phosphorus Magnesium Total Bilirubin AST ALT Alkaline Phosphatase Total Protein Albumin Triglycerides Arterial Blood Glucose Arterial Blood Ionized Calcium Digoxin Crossmatch 01/10/21 01/11/21 01/11/21 23:50 05:18 05:18 WBC RBC Hgb Hct MCV MCHC RDW Plt Count Lymph % (Auto) [place] % (Auto) Eos % (Auto) Lymph # (Auto) [place] # (Auto) Eos # (Auto) Seg Neutrophils % Seg Neuts % (Manual) Lymphocytes % (Manual) Monocytes % (Manual) Seg Neutrophils # Seg Neutrophils # Man Lymphocytes # (Manual) Monocytes # (Manual) PT INR ABG pH POC ABG pCO2 POC ABG pO2 ABG pO2 ABG HCO3 ABG O2 Saturation ABG Base Excess ABG Hemoglobin ABG Oxyhemoglobin ABG Sodium ABG Potassium ABG Chloride ABG Glucose Oxyhemoglobin Sodium 136 L Potassium Chloride 94.6 L Carbon Dioxide 19 L BUN 145 H Creatinine 10.6 H Glucose 152 H POC Glucose 151 H Lactic Acid Calcium Phosphorus 6.00 H D Magnesium Total Bilirubin AST ALT Alkaline Phosphatase Total Protein Albumin Triglycerides Arterial Blood Glucose Arterial Blood Ionized Calcium Digoxin 0.8 L Crossmatch 01/11/21 01/11/21 01/11/21 05:18 05:19 11:28 WBC 17.4 H RBC 3.34 L Hgb 10.2 L Hct 29.7 L MCV MCHC RDW 15.9 H Plt Count Lymph % (Auto) [place] % (Auto) Eos % (Auto) Lymph # (Auto) [place] # (Auto) Eos # (Auto) Seg Neutrophils % Seg Neuts % (Manual) Lymphocytes % (Manual) Monocytes % (Manual) Seg Neutrophils # Seg Neutrophils # Man Lymphocytes # (Manual) Monocytes # (Manual) PT INR ABG pH POC ABG pCO2 POC ABG pO2 ABG pO2 ABG HCO3 ABG O2 Saturation ABG Base Excess ABG Hemoglobin ABG Oxyhemoglobin ABG Sodium ABG Potassium ABG Chloride ABG Glucose Oxyhemoglobin Sodium Potassium Chloride Carbon Dioxide BUN Creatinine Glucose POC Glucose 149 H 178 H Lactic Acid Calcium Phosphorus Magnesium Total Bilirubin AST ALT Alkaline Phosphatase Total Protein Albumin Triglycerides Arterial Blood Glucose Arterial Blood Ionized Calcium Digoxin Crossmatch 01/11/21 01/11/21 01/12/21 17:31 23:14 05:18 WBC RBC Hgb Hct MCV MCHC RDW Plt Count Lymph % (Auto) [place] % (Auto) Eos % (Auto) Lymph # (Auto) [place] # (Auto) Eos # (Auto) Seg Neutrophils % Seg Neuts % (Manual) Lymphocytes % (Manual) Monocytes % (Manual) Seg Neutrophils # Seg Neutrophils # Man Lymphocytes # (Manual) Monocytes # (Manual) PT INR ABG pH POC ABG pCO2 POC ABG pO2 ABG pO2 ABG HCO3 ABG O2 Saturation ABG Base Excess ABG Hemoglobin ABG Oxyhemoglobin ABG Sodium ABG Potassium ABG Chloride ABG Glucose Oxyhemoglobin Sodium Potassium Chloride Carbon Dioxide BUN Creatinine Glucose POC Glucose 158 H 145 H 148 H Lactic Acid Calcium Phosphorus Magnesium Total Bilirubin AST ALT Alkaline Phosphatase Total Protein Albumin Triglycerides Arterial Blood Glucose Arterial Blood Ionized Calcium Digoxin Crossmatch 01/12/21 01/12/21 01/12/21 06:50 10:45 13:34 WBC RBC Hgb Hct MCV MCHC RDW Plt Count Lymph % (Auto) [place] % (Auto) Eos % (Auto) Lymph # (Auto) [place] # (Auto) Eos # (Auto) Seg Neutrophils % Seg Neuts % (Manual) Lymphocytes % (Manual) Monocytes % (Manual) Seg Neutrophils # Seg Neutrophils # Man Lymphocytes # (Manual) Monocytes # (Manual) PT INR ABG pH POC ABG pCO2 POC ABG pO2 ABG pO2 ABG HCO3 ABG O2 Saturation ABG Base Excess ABG Hemoglobin ABG Oxyhemoglobin ABG Sodium ABG Potassium ABG Chloride ABG Glucose Oxyhemoglobin Sodium Potassium 2.9 L* D Chloride 94.8 L Carbon Dioxide BUN 102 H Creatinine 8.3 H Glucose 139 H POC Glucose 151 H 134 H Lactic Acid Calcium 8.1 L Phosphorus 5.00 H Magnesium Total Bilirubin AST ALT Alkaline Phosphatase Total Protein Albumin Triglycerides Arterial Blood Glucose Arterial Blood Ionized Calcium Digoxin Crossmatch 01/12/21 01/12/21 01/13/21 16:59 23:06 03:45 WBC RBC Hgb Hct MCV MCHC RDW Plt Count Lymph % (Auto) [place] % (Auto) Eos % (Auto) Lymph # (Auto) [place] # (Auto) Eos # (Auto) Seg Neutrophils % Seg Neuts % (Manual) Lymphocytes % (Manual) Monocytes % (Manual) Seg Neutrophils # Seg Neutrophils # Man Lymphocytes # (Manual) Monocytes # (Manual) PT INR ABG pH POC ABG pCO2 POC ABG pO2 ABG pO2 ABG HCO3 ABG O2 Saturation ABG Base Excess ABG Hemoglobin ABG Oxyhemoglobin ABG Sodium ABG Potassium ABG Chloride ABG Glucose Oxyhemoglobin Sodium 136 L Potassium 3.4 L Chloride 92.6 L Carbon Dioxide BUN 134 H Creatinine 10.4 H Glucose 126 H POC Glucose 108 H 135 H Lactic Acid Calcium 8.3 L Phosphorus 5.60 H Magnesium 1.50 L Total Bilirubin AST ALT Alkaline Phosphatase Total Protein Albumin Triglycerides Arterial Blood Glucose Arterial Blood Ionized Calcium Digoxin Crossmatch 01/13/21 01/13/21 01/13/21 03:45 05:55 11:59 WBC 17.6 H RBC 3.33 L Hgb 10.2 L Hct 29.5 L MCV MCHC 35 H RDW 15.5 H Plt Count Lymph % (Auto) 4.4 L [place] % (Auto) 10.3 H Eos % (Auto) Lymph # (Auto) 0.8 L [place] # (Auto) 1.8 H Eos # (Auto) Seg Neutrophils % 84.2 H Seg Neuts % (Manual) Lymphocytes % (Manual) Monocytes % (Manual) Seg Neutrophils # 14.8 H Seg Neutrophils # Man Lymphocytes # (Manual) Monocytes # (Manual) PT INR ABG pH POC ABG pCO2 POC ABG pO2 ABG pO2 ABG HCO3 ABG O2 Saturation ABG Base Excess ABG Hemoglobin ABG Oxyhemoglobin ABG Sodium ABG Potassium ABG Chloride ABG Glucose Oxyhemoglobin Sodium Potassium Chloride Carbon Dioxide BUN Creatinine Glucose POC Glucose 134 H 141 H Lactic Acid Calcium Phosphorus Magnesium Total Bilirubin AST ALT Alkaline Phosphatase Total Protein Albumin Triglycerides Arterial Blood Glucose Arterial Blood Ionized Calcium Digoxin Crossmatch 01/13/21 01/14/21 01/14/21 23:09 05:39 05:57 WBC RBC Hgb Hct MCV MCHC RDW Plt Count Lymph % (Auto) [place] % (Auto) Eos % (Auto) Lymph # (Auto) [place] # (Auto) Eos # (Auto) Seg Neutrophils % Seg Neuts % (Manual) Lymphocytes % (Manual) Monocytes % (Manual) Seg Neutrophils # Seg Neutrophils # Man Lymphocytes # (Manual) Monocytes # (Manual) PT INR ABG pH POC ABG pCO2 POC ABG pO2 ABG pO2 ABG HCO3 ABG O2 Saturation ABG Base Excess ABG Hemoglobin ABG Oxyhemoglobin ABG Sodium ABG Potassium ABG Chloride ABG Glucose Oxyhemoglobin Sodium Potassium Chloride 97.6 L Carbon Dioxide BUN 81 H Creatinine 7.6 H Glucose 193 H POC Glucose 106 H 190 H Lactic Acid Calcium 8.2 L Phosphorus 4.60 H Magnesium Total Bilirubin AST ALT Alkaline Phosphatase Total Protein Albumin Triglycerides Arterial Blood Glucose Arterial Blood Ionized Calcium Digoxin Crossmatch 01/14/21 01/14/21 01/14/21 10:00 16:56 16:59 WBC 17.0 H RBC 3.10 L Hgb 9.6 L Hct 27.4 L MCV MCHC 35 H RDW 15.6 H Plt Count Lymph % (Auto) [place] % (Auto) Eos % (Auto) Lymph # (Auto) [place] # (Auto) Eos # (Auto) Seg Neutrophils % Seg Neuts % (Manual) Lymphocytes % (Manual) Monocytes % (Manual) Seg Neutrophils # Seg Neutrophils # Man Lymphocytes # (Manual) Monocytes # (Manual) PT INR ABG pH POC ABG pCO2 POC ABG pO2 ABG pO2 ABG HCO3 ABG O2 Saturation ABG Base Excess ABG Hemoglobin ABG Oxyhemoglobin ABG Sodium ABG Potassium ABG Chloride ABG Glucose Oxyhemoglobin Sodium Potassium Chloride Carbon Dioxide BUN Creatinine Glucose POC Glucose 37 L 34 L Lactic Acid Calcium Phosphorus Magnesium Total Bilirubin AST ALT Alkaline Phosphatase Total Protein Albumin Triglycerides Arterial Blood Glucose Arterial Blood Ionized Calcium Digoxin Crossmatch 01/14/21 01/14/21 01/14/21 17:02 18:34 23:17 WBC RBC Hgb Hct MCV MCHC RDW Plt Count Lymph % (Auto) [place] % (Auto) Eos % (Auto) Lymph # (Auto) [place] # (Auto) Eos # (Auto) Seg Neutrophils % Seg Neuts % (Manual) Lymphocytes % (Manual) Monocytes % (Manual) Seg Neutrophils # Seg Neutrophils # Man Lymphocytes # (Manual) Monocytes # (Manual) PT INR ABG pH POC ABG pCO2 POC ABG pO2 ABG pO2 ABG HCO3 ABG O2 Saturation ABG Base Excess ABG Hemoglobin ABG Oxyhemoglobin ABG Sodium ABG Potassium ABG Chloride ABG Glucose Oxyhemoglobin Sodium Potassium Chloride Carbon Dioxide BUN Creatinine Glucose POC Glucose 35 L 143 H 53 L Lactic Acid Calcium Phosphorus Magnesium Total Bilirubin AST ALT Alkaline Phosphatase Total Protein Albumin Triglycerides Arterial Blood Glucose Arterial Blood Ionized Calcium Digoxin Crossmatch 01/15/21 01/15/21 01/15/21 00:34 04:00 04:00 WBC 15.9 H RBC 3.02 L Hgb 9.3 L Hct 27.3 L MCV MCHC RDW 15.6 H Plt Count Lymph % (Auto) [place] % (Auto) Eos % (Auto) Lymph # (Auto) [place] # (Auto) Eos # (Auto) Seg Neutrophils % Seg Neuts % (Manual) Lymphocytes % (Manual) Monocytes % (Manual) Seg Neutrophils # Seg Neutrophils # Man Lymphocytes # (Manual) Monocytes # (Manual) PT INR ABG pH POC ABG pCO2 POC ABG pO2 ABG pO2 ABG HCO3 ABG O2 Saturation ABG Base Excess ABG Hemoglobin ABG Oxyhemoglobin ABG Sodium ABG Potassium ABG Chloride ABG Glucose Oxyhemoglobin Sodium 136 L Potassium Chloride 94.3 L Carbon Dioxide BUN 117 H Creatinine 9.9 H Glucose 217 H POC Glucose 181 H Lactic Acid Calcium 8.3 L Phosphorus Magnesium Total Bilirubin AST ALT Alkaline Phosphatase Total Protein Albumin Triglycerides Arterial Blood Glucose Arterial Blood Ionized Calcium Digoxin Crossmatch 01/15/21 01/15/21 01/15/21 05:29 11:51 23:13 WBC RBC Hgb Hct MCV MCHC RDW Plt Count Lymph % (Auto) [place] % (Auto) Eos % (Auto) Lymph # (Auto) [place] # (Auto) Eos # (Auto) Seg Neutrophils % Seg Neuts % (Manual) Lymphocytes % (Manual) Monocytes % (Manual) Seg Neutrophils # Seg Neutrophils # Man Lymphocytes # (Manual) Monocytes # (Manual) PT INR ABG pH POC ABG pCO2 POC ABG pO2 ABG pO2 ABG HCO3 ABG O2 Saturation ABG Base Excess ABG Hemoglobin ABG Oxyhemoglobin ABG Sodium ABG Potassium ABG Chloride ABG Glucose Oxyhemoglobin Sodium Potassium Chloride Carbon Dioxide BUN Creatinine Glucose POC Glucose 221 H 62 L 154 H Lactic Acid Calcium Phosphorus Magnesium Total Bilirubin AST ALT Alkaline Phosphatase Total Protein Albumin Triglycerides Arterial Blood Glucose Arterial Blood Ionized Calcium Digoxin Crossmatch 01/16/21 01/16/21 01/16/21 05:04 06:44 06:44 WBC 14.8 H RBC 2.76 L Hgb 8.2 L Hct 24.8 L MCV MCHC RDW 15.6 H Plt Count Lymph % (Auto) [place] % (Auto) Eos % (Auto) Lymph # (Auto) [place] # (Auto) Eos # (Auto) Seg Neutrophils % Seg Neuts % (Manual) Lymphocytes % (Manual) Monocytes % (Manual) Seg Neutrophils # Seg Neutrophils # Man Lymphocytes # (Manual) Monocytes # (Manual) PT INR ABG pH POC ABG pCO2 POC ABG pO2 ABG pO2 ABG HCO3 ABG O2 Saturation ABG Base Excess ABG Hemoglobin ABG Oxyhemoglobin ABG Sodium ABG Potassium ABG Chloride ABG Glucose Oxyhemoglobin Sodium 133 L Potassium Chloride 92.3 L Carbon Dioxide 20 L BUN 160 H Creatinine 12.1 H Glucose 177 H POC Glucose 168 H Lactic Acid Calcium 8.1 L Phosphorus 5.50 H Magnesium 2.50 H Total Bilirubin AST ALT Alkaline Phosphatase Total Protein Albumin Triglycerides Arterial Blood Glucose Arterial Blood Ionized Calcium Digoxin Crossmatch 01/16/21 01/17/21 01/17/21 23:20 05:14 05:14 WBC 12.7 H RBC 2.75 L Hgb 8.5 L Hct 24.6 L MCV MCHC 35 H RDW 15.4 H Plt Count Lymph % (Auto) [place] % (Auto) Eos % (Auto) Lymph # (Auto) [place] # (Auto) Eos # (Auto) Seg Neutrophils % Seg Neuts % (Manual) Lymphocytes % (Manual) Monocytes % (Manual) Seg Neutrophils # Seg Neutrophils # Man Lymphocytes # (Manual) Monocytes # (Manual) PT INR ABG pH POC ABG pCO2 POC ABG pO2 ABG pO2 ABG HCO3 ABG O2 Saturation ABG Base Excess ABG Hemoglobin ABG Oxyhemoglobin ABG Sodium ABG Potassium ABG Chloride ABG Glucose Oxyhemoglobin Sodium Potassium Chloride 97.9 L Carbon Dioxide BUN 84 H Creatinine 7.8 H Glucose 176 H POC Glucose 153 H Lactic Acid Calcium 8.0 L Phosphorus Magnesium Total Bilirubin AST ALT Alkaline Phosphatase Total Protein Albumin Triglycerides Arterial Blood Glucose Arterial Blood Ionized Calcium Digoxin Crossmatch 01/17/21 01/17/21 01/18/21 05:33 11:58 00:07 WBC RBC Hgb Hct MCV MCHC RDW Plt Count Lymph % (Auto) [place] % (Auto) Eos % (Auto) Lymph # (Auto) [place] # (Auto) Eos # (Auto) Seg Neutrophils % Seg Neuts % (Manual) Lymphocytes % (Manual) Monocytes % (Manual) Seg Neutrophils # Seg Neutrophils # Man Lymphocytes # (Manual) Monocytes # (Manual) PT INR ABG pH POC ABG pCO2 POC ABG pO2 ABG pO2 ABG HCO3 ABG O2 Saturation ABG Base Excess ABG Hemoglobin ABG Oxyhemoglobin ABG Sodium ABG Potassium ABG Chloride ABG Glucose Oxyhemoglobin Sodium Potassium Chloride Carbon Dioxide BUN Creatinine Glucose POC Glucose 162 H 64 L 146 H Lactic Acid Calcium Phosphorus Magnesium Total Bilirubin AST ALT Alkaline Phosphatase Total Protein Albumin Triglycerides Arterial Blood Glucose Arterial Blood Ionized Calcium Digoxin Crossmatch 01/18/21 01/18/21 01/18/21 04:19 04:19 06:15 WBC 15.6 H RBC 3.00 L Hgb 9.2 L Hct 26.8 L MCV MCHC 35 H RDW 15.6 H Plt Count Lymph % (Auto) [place] % (Auto) Eos % (Auto) Lymph # (Auto) [place] # (Auto) Eos # (Auto) Seg Neutrophils % Seg Neuts % (Manual) Lymphocytes % (Manual) Monocytes % (Manual) Seg Neutrophils # Seg Neutrophils # Man Lymphocytes # (Manual) Monocytes # (Manual) PT INR ABG pH POC ABG pCO2 POC ABG pO2 ABG pO2 ABG HCO3 ABG O2 Saturation ABG Base Excess ABG Hemoglobin ABG Oxyhemoglobin ABG Sodium ABG Potassium ABG Chloride ABG Glucose Oxyhemoglobin Sodium Potassium Chloride 96.2 L Carbon Dioxide BUN 117 H Creatinine 10.0 H Glucose 165 H POC Glucose 189 H Lactic Acid Calcium Phosphorus 4.70 H D Magnesium Total Bilirubin AST ALT Alkaline Phosphatase Total Protein Albumin Triglycerides Arterial Blood Glucose Arterial Blood Ionized Calcium Digoxin Crossmatch 01/18/21 01/18/21 01/18/21 11:53 13:44 15:08 WBC RBC Hgb Hct MCV MCHC RDW Plt Count Lymph % (Auto) [place] % (Auto) Eos % (Auto) Lymph # (Auto) [place] # (Auto) Eos # (Auto) Seg Neutrophils % Seg Neuts % (Manual) Lymphocytes % (Manual) Monocytes % (Manual) Seg Neutrophils # Seg Neutrophils # Man Lymphocytes # (Manual) Monocytes # (Manual) PT INR ABG pH POC ABG pCO2 POC ABG pO2 ABG pO2 ABG HCO3 ABG O2 Saturation ABG Base Excess ABG Hemoglobin ABG Oxyhemoglobin ABG Sodium ABG Potassium ABG Chloride ABG Glucose Oxyhemoglobin Sodium Potassium Chloride Carbon Dioxide BUN Creatinine Glucose POC Glucose 69 L 50 L 56 L Lactic Acid Calcium Phosphorus Magnesium Total Bilirubin AST ALT Alkaline Phosphatase Total Protein Albumin Triglycerides Arterial Blood Glucose Arterial Blood Ionized Calcium Digoxin Crossmatch 01/18/21 01/19/21 01/19/21 17:50 04:55 08:56 WBC 12.7 H RBC 2.89 L Hgb 8.7 L Hct 25.6 L MCV MCHC RDW 15.5 H Plt Count Lymph % (Auto) [place] % (Auto) Eos % (Auto) Lymph # (Auto) [place] # (Auto) Eos # (Auto) Seg Neutrophils % Seg Neuts % (Manual) Lymphocytes % (Manual) Monocytes % (Manual) Seg Neutrophils # Seg Neutrophils # Man Lymphocytes # (Manual) Monocytes # (Manual) PT INR ABG pH POC ABG pCO2 POC ABG pO2 ABG pO2 ABG HCO3 ABG O2 Saturation ABG Base Excess ABG Hemoglobin ABG Oxyhemoglobin ABG Sodium ABG Potassium ABG Chloride ABG Glucose Oxyhemoglobin Sodium Potassium Chloride Carbon Dioxide BUN Creatinine Glucose POC Glucose 137 H 120 H Lactic Acid Calcium Phosphorus Magnesium Total Bilirubin AST ALT Alkaline Phosphatase Total Protein Albumin Triglycerides Arterial Blood Glucose Arterial Blood Ionized Calcium Digoxin Crossmatch 01/19/21 01/19/21 01/19/21 08:56 11:33 17:32 WBC RBC Hgb Hct MCV MCHC RDW Plt Count Lymph % (Auto) [place] % (Auto) Eos % (Auto) Lymph # (Auto) [place] # (Auto) Eos # (Auto) Seg Neutrophils % Seg Neuts % (Manual) Lymphocytes % (Manual) Monocytes % (Manual) Seg Neutrophils # Seg Neutrophils # Man Lymphocytes # (Manual) Monocytes # (Manual) PT INR ABG pH POC ABG pCO2 POC ABG pO2 ABG pO2 ABG HCO3 ABG O2 Saturation ABG Base Excess ABG Hemoglobin ABG Oxyhemoglobin ABG Sodium ABG Potassium ABG Chloride ABG Glucose Oxyhemoglobin Sodium Potassium Chloride Carbon Dioxide BUN 66 H Creatinine 7.7 H Glucose 119 H POC Glucose 160 H 125 H Lactic Acid Calcium 8.3 L Phosphorus Magnesium Total Bilirubin AST ALT Alkaline Phosphatase Total Protein Albumin Triglycerides Arterial Blood Glucose Arterial Blood Ionized Calcium Digoxin Crossmatch 01/19/21 01/20/21 01/20/21 23:30 03:35 03:35 WBC 12.0 H RBC 2.62 L Hgb 8.3 L Hct 23.2 L MCV MCHC 36 H RDW Plt Count Lymph % (Auto) [place] % (Auto) Eos % (Auto) Lymph # (Auto) [place] # (Auto) Eos # (Auto) Seg Neutrophils % Seg Neuts % (Manual) Lymphocytes % (Manual) Monocytes % (Manual) Seg Neutrophils # Seg Neutrophils # Man Lymphocytes # (Manual) Monocytes # (Manual) PT INR ABG pH POC ABG pCO2 POC ABG pO2 ABG pO2 ABG HCO3 ABG O2 Saturation ABG Base Excess ABG Hemoglobin ABG Oxyhemoglobin ABG Sodium ABG Potassium ABG Chloride ABG Glucose Oxyhemoglobin Sodium Potassium Chloride Carbon Dioxide BUN 46 H Creatinine 5.9 H Glucose 128 H POC Glucose 127 H Lactic Acid Calcium Phosphorus Magnesium Total Bilirubin AST ALT Alkaline Phosphatase Total Protein Albumin Triglycerides Arterial Blood Glucose Arterial Blood Ionized Calcium Digoxin Crossmatch 01/20/21 01/20/21 01/20/21 06:19 11:55 18:00 WBC RBC Hgb Hct MCV MCHC RDW Plt Count Lymph % (Auto) [place] % (Auto) Eos % (Auto) Lymph # (Auto) [place] # (Auto) Eos # (Auto) Seg Neutrophils % Seg Neuts % (Manual) Lymphocytes % (Manual) Monocytes % (Manual) Seg Neutrophils # Seg Neutrophils # Man Lymphocytes # (Manual) Monocytes # (Manual) PT INR ABG pH POC ABG pCO2 POC ABG pO2 ABG pO2 ABG HCO3 ABG O2 Saturation ABG Base Excess ABG Hemoglobin ABG Oxyhemoglobin ABG Sodium ABG Potassium ABG Chloride ABG Glucose Oxyhemoglobin Sodium Potassium Chloride Carbon Dioxide BUN Creatinine Glucose POC Glucose 119 H 128 H 115 H Lactic Acid Calcium Phosphorus Magnesium Total Bilirubin AST ALT Alkaline Phosphatase Total Protein Albumin Triglycerides Arterial Blood Glucose Arterial Blood Ionized Calcium Digoxin Crossmatch 01/20/21 01/21/21 01/21/21 23:26 04:39 05:27 WBC RBC Hgb Hct MCV MCHC RDW Plt Count Lymph % (Auto) [place] % (Auto) Eos % (Auto) Lymph # (Auto) [place] # (Auto) Eos # (Auto) Seg Neutrophils % Seg Neuts % (Manual) Lymphocytes % (Manual) Monocytes % (Manual) Seg Neutrophils # Seg Neutrophils # Man Lymphocytes # (Manual) Monocytes # (Manual) PT INR ABG pH POC ABG pCO2 POC ABG pO2 ABG pO2 ABG HCO3 ABG O2 Saturation ABG Base Excess ABG Hemoglobin ABG Oxyhemoglobin ABG Sodium ABG Potassium ABG Chloride ABG Glucose Oxyhemoglobin Sodium Potassium Chloride Carbon Dioxide BUN 37 H Creatinine 5.3 H Glucose 109 H POC Glucose 108 H 107 H Lactic Acid Calcium Phosphorus 2.10 L Magnesium 1.50 L Total Bilirubin AST ALT Alkaline Phosphatase 143 H Total Protein 6.1 L Albumin 3.0 L Triglycerides Arterial Blood Glucose Arterial Blood Ionized Calcium Digoxin Crossmatch 01/21/21 01/21/21 01/22/21 11:35 17:53 00:20 WBC RBC Hgb Hct MCV MCHC RDW Plt Count Lymph % (Auto) [place] % (Auto) Eos % (Auto) Lymph # (Auto) [place] # (Auto) Eos # (Auto) Seg Neutrophils % Seg Neuts % (Manual) Lymphocytes % (Manual) Monocytes % (Manual) Seg Neutrophils # Seg Neutrophils # Man Lymphocytes # (Manual) Monocytes # (Manual) PT INR ABG pH POC ABG pCO2 POC ABG pO2 ABG pO2 ABG HCO3 ABG O2 Saturation ABG Base Excess ABG Hemoglobin ABG Oxyhemoglobin ABG Sodium ABG Potassium ABG Chloride ABG Glucose Oxyhemoglobin Sodium Potassium Chloride Carbon Dioxide BUN Creatinine Glucose POC Glucose 133 H 124 H 122 H Lactic Acid Calcium Phosphorus Magnesium Total Bilirubin AST ALT Alkaline Phosphatase Total Protein Albumin Triglycerides Arterial Blood Glucose Arterial Blood Ionized Calcium Digoxin Crossmatch 01/22/21 01/22/21 01/22/21 04:00 06:09 11:36 WBC RBC Hgb Hct MCV MCHC RDW Plt Count Lymph % (Auto) [place] % (Auto) Eos % (Auto) Lymph # (Auto) [place] # (Auto) Eos # (Auto) Seg Neutrophils % Seg Neuts % (Manual) Lymphocytes % (Manual) Monocytes % (Manual) Seg Neutrophils # Seg Neutrophils # Man Lymphocytes # (Manual) Monocytes # (Manual) PT INR ABG pH POC ABG pCO2 POC ABG pO2 ABG pO2 ABG HCO3 ABG O2 Saturation ABG Base Excess ABG Hemoglobin ABG Oxyhemoglobin ABG Sodium ABG Potassium ABG Chloride ABG Glucose Oxyhemoglobin Sodium Potassium Chloride Carbon Dioxide BUN 65 H Creatinine 8.2 H D Glucose 111 H POC Glucose 122 H 132 H Lactic Acid Calcium Phosphorus Magnesium Total Bilirubin AST ALT Alkaline Phosphatase Total Protein Albumin Triglycerides Arterial Blood Glucose Arterial Blood Ionized Calcium Digoxin Crossmatch 01/22/21 01/22/21 01/23/21 17:17 23:18 05:29 WBC RBC Hgb Hct MCV MCHC RDW Plt Count Lymph % (Auto) [place] % (Auto) Eos % (Auto) Lymph # (Auto) [place] # (Auto) Eos # (Auto) Seg Neutrophils % Seg Neuts % (Manual) Lymphocytes % (Manual) Monocytes % (Manual) Seg Neutrophils # Seg Neutrophils # Man Lymphocytes # (Manual) Monocytes # (Manual) PT INR ABG pH POC ABG pCO2 POC ABG pO2 ABG pO2 ABG HCO3 ABG O2 Saturation ABG Base Excess ABG Hemoglobin ABG Oxyhemoglobin ABG Sodium ABG Potassium ABG Chloride ABG Glucose Oxyhemoglobin Sodium Potassium Chloride Carbon Dioxide BUN Creatinine Glucose POC Glucose 135 H 128 H 129 H Lactic Acid Calcium Phosphorus Magnesium Total Bilirubin AST ALT Alkaline Phosphatase Total Protein Albumin Triglycerides Arterial Blood Glucose Arterial Blood Ionized Calcium Digoxin Crossmatch 01/23/21 01/23/21 01/23/21 05:45 11:28 16:39 WBC RBC Hgb Hct MCV MCHC RDW Plt Count Lymph % (Auto) [place] % (Auto) Eos % (Auto) Lymph # (Auto) [place] # (Auto) Eos # (Auto) Seg Neutrophils % Seg Neuts % (Manual) Lymphocytes % (Manual) Monocytes % (Manual) Seg Neutrophils # Seg Neutrophils # Man Lymphocytes # (Manual) Monocytes # (Manual) PT INR ABG pH POC ABG pCO2 POC ABG pO2 ABG pO2 ABG HCO3 ABG O2 Saturation ABG Base Excess ABG Hemoglobin ABG Oxyhemoglobin ABG Sodium ABG Potassium ABG Chloride ABG Glucose Oxyhemoglobin Sodium Potassium Chloride Carbon Dioxide BUN 96 H Creatinine 10.8 H Glucose 124 H POC Glucose 160 H 116 H Lactic Acid Calcium Phosphorus Magnesium 2.50 H Total Bilirubin AST ALT Alkaline Phosphatase Total Protein Albumin Triglycerides Arterial Blood Glucose Arterial Blood Ionized Calcium Digoxin Crossmatch 01/24/21 01/24/21 01/24/21 00:02 04:45 05:01 WBC RBC Hgb Hct MCV MCHC RDW Plt Count Lymph % (Auto) [place] % (Auto) Eos % (Auto) Lymph # (Auto) [place] # (Auto) Eos # (Auto) Seg Neutrophils % Seg Neuts % (Manual) Lymphocytes % (Manual) Monocytes % (Manual) Seg Neutrophils # Seg Neutrophils # Man Lymphocytes # (Manual) Monocytes # (Manual) PT INR ABG pH POC ABG pCO2 POC ABG pO2 ABG pO2 ABG HCO3 ABG O2 Saturation ABG Base Excess ABG Hemoglobin ABG Oxyhemoglobin ABG Sodium ABG Potassium ABG Chloride ABG Glucose Oxyhemoglobin Sodium Potassium 3.5 L Chloride Carbon Dioxide BUN 56 H Creatinine 7.7 H Glucose 102 H POC Glucose 120 H 108 H Lactic Acid Calcium Phosphorus Magnesium Total Bilirubin AST ALT Alkaline Phosphatase Total Protein Albumin Triglycerides Arterial Blood Glucose Arterial Blood Ionized Calcium Digoxin Crossmatch 01/24/21 01/24/21 01/24/21 12:03 17:07 23:55 WBC RBC Hgb Hct MCV MCHC RDW Plt Count Lymph % (Auto) [place] % (Auto) Eos % (Auto) Lymph # (Auto) [place] # (Auto) Eos # (Auto) Seg Neutrophils % Seg Neuts % (Manual) Lymphocytes % (Manual) Monocytes % (Manual) Seg Neutrophils # Seg Neutrophils # Man Lymphocytes # (Manual) Monocytes # (Manual) PT INR ABG pH POC ABG pCO2 POC ABG pO2 ABG pO2 ABG HCO3 ABG O2 Saturation ABG Base Excess ABG Hemoglobin ABG Oxyhemoglobin ABG Sodium ABG Potassium ABG Chloride ABG Glucose Oxyhemoglobin Sodium Potassium Chloride Carbon Dioxide BUN Creatinine Glucose POC Glucose 136 H 122 H 112 H Lactic Acid Calcium Phosphorus Magnesium Total Bilirubin AST ALT Alkaline Phosphatase Total Protein Albumin Triglycerides Arterial Blood Glucose Arterial Blood Ionized Calcium Digoxin Crossmatch 01/25/21 01/25/21 01/25/21 05:15 06:00 07:47 WBC RBC Hgb Hct MCV MCHC RDW Plt Count Lymph % (Auto) [place] % (Auto) Eos % (Auto) Lymph # (Auto) [place] # (Auto) Eos # (Auto) Seg Neutrophils % Seg Neuts % (Manual) Lymphocytes % (Manual) Monocytes % (Manual) Seg Neutrophils # Seg Neutrophils # Man Lymphocytes # (Manual) Monocytes # (Manual) PT INR ABG pH POC ABG pCO2 POC ABG pO2 ABG pO2 ABG HCO3 ABG O2 Saturation ABG Base Excess ABG Hemoglobin ABG Oxyhemoglobin ABG Sodium ABG Potassium ABG Chloride ABG Glucose Oxyhemoglobin Sodium 116 L* D Potassium Chloride 79.1 L Carbon Dioxide 17 L D BUN 72 H Creatinine 7.4 H Glucose 2242 H* POC Glucose 117 H 138 H Lactic Acid Calcium 6.7 L D Phosphorus Magnesium Total Bilirubin AST ALT Alkaline Phosphatase Total Protein Albumin Triglycerides Arterial Blood Glucose Arterial Blood Ionized Calcium Digoxin Crossmatch 01/25/21 01/25/21 01/25/21 08:35 11:49 18:42 WBC RBC Hgb Hct MCV MCHC RDW Plt Count Lymph % (Auto) [place] % (Auto) Eos % (Auto) Lymph # (Auto) [place] # (Auto) Eos # (Auto) Seg Neutrophils % Seg Neuts % (Manual) Lymphocytes % (Manual) Monocytes % (Manual) Seg Neutrophils # Seg Neutrophils # Man Lymphocytes # (Manual) Monocytes # (Manual) PT INR ABG pH POC ABG pCO2 POC ABG pO2 ABG pO2 ABG HCO3 ABG O2 Saturation ABG Base Excess ABG Hemoglobin ABG Oxyhemoglobin ABG Sodium ABG Potassium ABG Chloride ABG Glucose Oxyhemoglobin Sodium Potassium Chloride 97.0 L Carbon Dioxide BUN 92 H Creatinine 11.0 H Glucose 125 H POC Glucose 130 H 122 H Lactic Acid Calcium Phosphorus Magnesium Total Bilirubin AST ALT Alkaline Phosphatase Total Protein Albumin Triglycerides Arterial Blood Glucose Arterial Blood Ionized Calcium Digoxin Crossmatch 01/25/21 01/26/21 01/26/21 23:37 04:19 05:48 WBC RBC Hgb Hct MCV MCHC RDW Plt Count Lymph % (Auto) [place] % (Auto) Eos % (Auto) Lymph # (Auto) [place] # (Auto) Eos # (Auto) Seg Neutrophils % Seg Neuts % (Manual) Lymphocytes % (Manual) Monocytes % (Manual) Seg Neutrophils # Seg Neutrophils # Man Lymphocytes # (Manual) Monocytes # (Manual) PT INR ABG pH POC ABG pCO2 POC ABG pO2 ABG pO2 ABG HCO3 ABG O2 Saturation ABG Base Excess ABG Hemoglobin ABG Oxyhemoglobin ABG Sodium ABG Potassium ABG Chloride ABG Glucose Oxyhemoglobin Sodium Potassium Chloride Carbon Dioxide BUN 49 H Creatinine 7.1 H Glucose POC Glucose 144 H 125 H Lactic Acid Calcium Phosphorus Magnesium 1.50 L Total Bilirubin AST ALT Alkaline Phosphatase Total Protein Albumin Triglycerides Arterial Blood Glucose Arterial Blood Ionized Calcium Digoxin Crossmatch 01/26/21 01/26/21 01/27/21 11:16 18:35 00:01 WBC RBC Hgb Hct MCV MCHC RDW Plt Count Lymph % (Auto) [place] % (Auto) Eos % (Auto) Lymph # (Auto) [place] # (Auto) Eos # (Auto) Seg Neutrophils % Seg Neuts % (Manual) Lymphocytes % (Manual) Monocytes % (Manual) Seg Neutrophils # Seg Neutrophils # Man Lymphocytes # (Manual) Monocytes # (Manual) PT INR ABG pH POC ABG pCO2 POC ABG pO2 ABG pO2 ABG HCO3 ABG O2 Saturation ABG Base Excess ABG Hemoglobin ABG Oxyhemoglobin ABG Sodium ABG Potassium ABG Chloride ABG Glucose Oxyhemoglobin Sodium Potassium Chloride Carbon Dioxide BUN Creatinine Glucose POC Glucose 122 H 127 H 130 H Lactic Acid Calcium Phosphorus Magnesium Total Bilirubin AST ALT Alkaline Phosphatase Total Protein Albumin Triglycerides Arterial Blood Glucose Arterial Blood Ionized Calcium Digoxin Crossmatch 01/27/21 01/27/21 01/27/21 04:19 04:19 05:25 WBC 12.4 H RBC 2.79 L Hgb 8.6 L Hct 25.1 L MCV MCHC RDW 16.1 H Plt Count Lymph % (Auto) 7.5 L [place] % (Auto) 9.3 H Eos % (Auto) 4.8 H Lymph # (Auto) 0.9 L [place] # (Auto) 1.1 H Eos # (Auto) 0.6 H Seg Neutrophils % 78.0 H Seg Neuts % (Manual) Lymphocytes % (Manual) Monocytes % (Manual) Seg Neutrophils # 9.7 H Seg Neutrophils # Man Lymphocytes # (Manual) Monocytes # (Manual) PT INR ABG pH POC ABG pCO2 POC ABG pO2 ABG pO2 ABG HCO3 ABG O2 Saturation ABG Base Excess ABG Hemoglobin ABG Oxyhemoglobin ABG Sodium ABG Potassium ABG Chloride ABG Glucose Oxyhemoglobin Sodium Potassium Chloride 97.9 L Carbon Dioxide BUN 76 H Creatinine 9.9 H Glucose 111 H POC Glucose 129 H Lactic Acid Calcium Phosphorus Magnesium Total Bilirubin AST ALT Alkaline Phosphatase Total Protein Albumin Triglycerides Arterial Blood Glucose Arterial Blood Ionized Calcium Digoxin Crossmatch 01/27/21 01/27/21 01/27/21 11:30 17:08 23:28 WBC RBC Hgb Hct MCV MCHC RDW Plt Count Lymph % (Auto) [place] % (Auto) Eos % (Auto) Lymph # (Auto) [place] # (Auto) Eos # (Auto) Seg Neutrophils % Seg Neuts % (Manual) Lymphocytes % (Manual) Monocytes % (Manual) Seg Neutrophils # Seg Neutrophils # Man Lymphocytes # (Manual) Monocytes # (Manual) PT INR ABG pH POC ABG pCO2 POC ABG pO2 ABG pO2 ABG HCO3 ABG O2 Saturation ABG Base Excess ABG Hemoglobin ABG Oxyhemoglobin ABG Sodium ABG Potassium ABG Chloride ABG Glucose Oxyhemoglobin Sodium Potassium Chloride Carbon Dioxide BUN Creatinine Glucose POC Glucose 128 H 158 H 114 H Lactic Acid Calcium Phosphorus Magnesium Total Bilirubin AST ALT Alkaline Phosphatase Total Protein Albumin Triglycerides Arterial Blood Glucose Arterial Blood Ionized Calcium Digoxin Crossmatch 01/28/21 01/28/21 01/28/21 05:17 11:27 18:01 WBC RBC Hgb Hct MCV MCHC RDW Plt Count Lymph % (Auto) [place] % (Auto) Eos % (Auto) Lymph # (Auto) [place] # (Auto) Eos # (Auto) Seg Neutrophils % Seg Neuts % (Manual) Lymphocytes % (Manual) Monocytes % (Manual) Seg Neutrophils # Seg Neutrophils # Man Lymphocytes # (Manual) Monocytes # (Manual) PT INR ABG pH POC ABG pCO2 POC ABG pO2 ABG pO2 ABG HCO3 ABG O2 Saturation ABG Base Excess ABG Hemoglobin ABG Oxyhemoglobin ABG Sodium ABG Potassium ABG Chloride ABG Glucose Oxyhemoglobin Sodium Potassium Chloride Carbon Dioxide BUN Creatinine Glucose POC Glucose 113 H 134 H 111 H Lactic Acid Calcium Phosphorus Magnesium Total Bilirubin AST ALT Alkaline Phosphatase Total Protein Albumin Triglycerides Arterial Blood Glucose Arterial Blood Ionized Calcium Digoxin Crossmatch 01/29/21 01/29/21 01/29/21 04:54 06:45 11:10 WBC RBC Hgb Hct MCV MCHC RDW Plt Count Lymph % (Auto) [place] % (Auto) Eos % (Auto) Lymph # (Auto) [place] # (Auto) Eos # (Auto) Seg Neutrophils % Seg Neuts % (Manual) Lymphocytes % (Manual) Monocytes % (Manual) Seg Neutrophils # Seg Neutrophils # Man Lymphocytes # (Manual) Monocytes # (Manual) PT INR ABG pH POC ABG pCO2 POC ABG pO2 ABG pO2 ABG HCO3 ABG O2 Saturation ABG Base Excess ABG Hemoglobin ABG Oxyhemoglobin ABG Sodium ABG Potassium ABG Chloride ABG Glucose Oxyhemoglobin Sodium Potassium 3.4 L Chloride Carbon Dioxide BUN 51 H Creatinine 6.9 H Glucose 120 H POC Glucose 111 H 106 H Lactic Acid Calcium Phosphorus 2.10 L Magnesium Total Bilirubin AST ALT Alkaline Phosphatase 182 H Total Protein 6.0 L Albumin 2.9 L Triglycerides Arterial Blood Glucose Arterial Blood Ionized Calcium Digoxin Crossmatch 01/29/21 01/30/21 01/30/21 16:47 04:15 06:55 WBC RBC Hgb Hct MCV MCHC RDW Plt Count Lymph % (Auto) [place] % (Auto) Eos % (Auto) Lymph # (Auto) [place] # (Auto) Eos # (Auto) Seg Neutrophils % Seg Neuts % (Manual) Lymphocytes % (Manual) Monocytes % (Manual) Seg Neutrophils # Seg Neutrophils # Man Lymphocytes # (Manual) Monocytes # (Manual) PT INR ABG pH POC ABG pCO2 POC ABG pO2 ABG pO2 ABG HCO3 ABG O2 Saturation ABG Base Excess ABG Hemoglobin ABG Oxyhemoglobin ABG Sodium ABG Potassium ABG Chloride ABG Glucose Oxyhemoglobin Sodium Potassium Chloride Carbon Dioxide BUN 73 H Creatinine 9.2 H Glucose 119 H POC Glucose 110 H 126 H Lactic Acid Calcium Phosphorus 4.70 H D Magnesium Total Bilirubin AST ALT Alkaline Phosphatase Total Protein Albumin Triglycerides Arterial Blood Glucose Arterial Blood Ionized Calcium Digoxin Crossmatch 01/30/21 01/31/21 01/31/21 18:25 00:51 07:15 WBC RBC Hgb Hct MCV MCHC RDW Plt Count Lymph % (Auto) [place] % (Auto) Eos % (Auto) Lymph # (Auto) [place] # (Auto) Eos # (Auto) Seg Neutrophils % Seg Neuts % (Manual) Lymphocytes % (Manual) Monocytes % (Manual) Seg Neutrophils # Seg Neutrophils # Man Lymphocytes # (Manual) Monocytes # (Manual) PT INR ABG pH POC ABG pCO2 POC ABG pO2 ABG pO2 ABG HCO3 ABG O2 Saturation ABG Base Excess ABG Hemoglobin ABG Oxyhemoglobin ABG Sodium ABG Potassium ABG Chloride ABG Glucose Oxyhemoglobin Sodium Potassium Chloride Carbon Dioxide BUN Creatinine Glucose POC Glucose 117 H 134 H 134 H Lactic Acid Calcium Phosphorus Magnesium Total Bilirubin AST ALT Alkaline Phosphatase Total Protein Albumin Triglycerides Arterial Blood Glucose Arterial Blood Ionized Calcium Digoxin Crossmatch 01/31/21 01/31/21 02/01/21 11:45 23:15 05:51 WBC RBC Hgb Hct MCV MCHC RDW Plt Count Lymph % (Auto) [place] % (Auto) Eos % (Auto) Lymph # (Auto) [place] # (Auto) Eos # (Auto) Seg Neutrophils % Seg Neuts % (Manual) Lymphocytes % (Manual) Monocytes % (Manual) Seg Neutrophils # Seg Neutrophils # Man Lymphocytes # (Manual) Monocytes # (Manual) PT INR ABG pH POC ABG pCO2 POC ABG pO2 ABG pO2 ABG HCO3 ABG O2 Saturation ABG Base Excess ABG Hemoglobin ABG Oxyhemoglobin ABG Sodium ABG Potassium ABG Chloride ABG Glucose Oxyhemoglobin Sodium Potassium Chloride Carbon Dioxide BUN Creatinine Glucose POC Glucose 119 H 120 H 125 H Lactic Acid Calcium Phosphorus Magnesium Total Bilirubin AST ALT Alkaline Phosphatase Total Protein Albumin Triglycerides Arterial Blood Glucose Arterial Blood Ionized Calcium Digoxin Crossmatch 02/01/21 02/02/21 02/02/21 22:05 03:25 06:16 WBC RBC Hgb Hct MCV MCHC RDW Plt Count Lymph % (Auto) [place] % (Auto) Eos % (Auto) Lymph # (Auto) [place] # (Auto) Eos # (Auto) Seg Neutrophils % Seg Neuts % (Manual) Lymphocytes % (Manual) Monocytes % (Manual) Seg Neutrophils # Seg Neutrophils # Man Lymphocytes # (Manual) Monocytes # (Manual) PT INR ABG pH POC ABG pCO2 POC ABG pO2 ABG pO2 ABG HCO3 ABG O2 Saturation ABG Base Excess ABG Hemoglobin ABG Oxyhemoglobin ABG Sodium ABG Potassium ABG Chloride ABG Glucose Oxyhemoglobin Sodium Potassium 3.3 L Chloride Carbon Dioxide BUN 38 H Creatinine 5.8 H Glucose 115 H POC Glucose 118 H 130 H Lactic Acid Calcium Phosphorus 1.80 L Magnesium 1.60 L Total Bilirubin AST ALT Alkaline Phosphatase Total Protein Albumin Triglycerides Arterial Blood Glucose Arterial Blood Ionized Calcium Digoxin Crossmatch 02/02/21 02/02/21 02/03/21 17:29 21:53 04:50 WBC RBC Hgb Hct MCV MCHC RDW Plt Count Lymph % (Auto) [place] % (Auto) Eos % (Auto) Lymph # (Auto) [place] # (Auto) Eos # (Auto) Seg Neutrophils % Seg Neuts % (Manual) Lymphocytes % (Manual) Monocytes % (Manual) Seg Neutrophils # Seg Neutrophils # Man Lymphocytes # (Manual) Monocytes # (Manual) PT INR ABG pH POC ABG pCO2 POC ABG pO2 ABG pO2 ABG HCO3 ABG O2 Saturation ABG Base Excess ABG Hemoglobin ABG Oxyhemoglobin ABG Sodium ABG Potassium ABG Chloride ABG Glucose Oxyhemoglobin Sodium Potassium Chloride Carbon Dioxide BUN Creatinine Glucose POC Glucose 115 H 120 H Lactic Acid Calcium Phosphorus Magnesium 1.60 L Total Bilirubin AST ALT Alkaline Phosphatase Total Protein Albumin Triglycerides Arterial Blood Glucose Arterial Blood Ionized Calcium Digoxin Crossmatch 02/03/21 02/03/21 02/03/21 06:12 18:25 23:47 WBC RBC Hgb Hct MCV MCHC RDW Plt Count Lymph % (Auto) [place] % (Auto) Eos % (Auto) Lymph # (Auto) [place] # (Auto) Eos # (Auto) Seg Neutrophils % Seg Neuts % (Manual) Lymphocytes % (Manual) Monocytes % (Manual) Seg Neutrophils # Seg Neutrophils # Man Lymphocytes # (Manual) Monocytes # (Manual) PT INR ABG pH POC ABG pCO2 POC ABG pO2 ABG pO2 ABG HCO3 ABG O2 Saturation ABG Base Excess ABG Hemoglobin ABG Oxyhemoglobin ABG Sodium ABG Potassium ABG Chloride ABG Glucose Oxyhemoglobin Sodium Potassium Chloride Carbon Dioxide BUN Creatinine Glucose POC Glucose 112 H 112 H 131 H Lactic Acid Calcium Phosphorus Magnesium Total Bilirubin AST ALT Alkaline Phosphatase Total Protein Albumin Triglycerides Arterial Blood Glucose Arterial Blood Ionized Calcium Digoxin Crossmatch 02/04/21 02/04/21 02/04/21 05:40 09:37 12:03 WBC RBC Hgb Hct MCV MCHC RDW Plt Count Lymph % (Auto) [place] % (Auto) Eos % (Auto) Lymph # (Auto) [place] # (Auto) Eos # (Auto) Seg Neutrophils % Seg Neuts % (Manual) Lymphocytes % (Manual) Monocytes % (Manual) Seg Neutrophils # Seg Neutrophils # Man Lymphocytes # (Manual) Monocytes # (Manual) PT INR ABG pH POC ABG pCO2 POC ABG pO2 ABG pO2 ABG HCO3 ABG O2 Saturation ABG Base Excess ABG Hemoglobin ABG Oxyhemoglobin ABG Sodium ABG Potassium ABG Chloride ABG Glucose Oxyhemoglobin Sodium 131 L D 135 L Potassium 3.0 L 3.1 L Chloride 93.4 L 96.7 L Carbon Dioxide BUN 46 H 52 H Creatinine 6.5 H 7.3 H Glucose 363 H 128 H POC Glucose 129 H Lactic Acid Calcium Phosphorus 2.40 L Magnesium 1.50 L 1.60 L Total Bilirubin AST ALT Alkaline Phosphatase Total Protein Albumin Triglycerides Arterial Blood Glucose Arterial Blood Ionized Calcium Digoxin Crossmatch 02/04/21 02/04/21 02/05/21 17:25 21:38 05:19 WBC RBC Hgb Hct MCV MCHC RDW Plt Count Lymph % (Auto) [place] % (Auto) Eos % (Auto) Lymph # (Auto) [place] # (Auto) Eos # (Auto) Seg Neutrophils % Seg Neuts % (Manual) Lymphocytes % (Manual) Monocytes % (Manual) Seg Neutrophils # Seg Neutrophils # Man Lymphocytes # (Manual) Monocytes # (Manual) PT INR ABG pH POC ABG pCO2 POC ABG pO2 ABG pO2 ABG HCO3 ABG O2 Saturation ABG Base Excess ABG Hemoglobin ABG Oxyhemoglobin ABG Sodium ABG Potassium ABG Chloride ABG Glucose Oxyhemoglobin Sodium Potassium Chloride Carbon Dioxide BUN Creatinine Glucose POC Glucose 132 H 108 H 116 H Lactic Acid Calcium Phosphorus Magnesium Total Bilirubin AST ALT Alkaline Phosphatase Total Protein Albumin Triglycerides Arterial Blood Glucose Arterial Blood Ionized Calcium Digoxin Crossmatch 02/05/21 02/05/21 06:30 11:25 WBC RBC Hgb Hct MCV MCHC RDW Plt Count Lymph % (Auto) [place] % (Auto) Eos % (Auto) Lymph # (Auto) [place] # (Auto) Eos # (Auto) Seg Neutrophils % Seg Neuts % (Manual) Lymphocytes % (Manual) Monocytes % (Manual) Seg Neutrophils # Seg Neutrophils # Man Lymphocytes # (Manual) Monocytes # (Manual) PT INR ABG pH POC ABG pCO2 POC ABG pO2 ABG pO2 ABG HCO3 ABG O2 Saturation ABG Base Excess ABG Hemoglobin ABG Oxyhemoglobin ABG Sodium ABG Potassium ABG Chloride ABG Glucose Oxyhemoglobin Sodium Potassium 3.2 L Chloride 96.5 L Carbon Dioxide BUN 76 H Creatinine 9.6 H Glucose 112 H POC Glucose 118 H Lactic Acid Calcium Phosphorus Magnesium 1.50 L Total Bilirubin AST ALT Alkaline Phosphatase 177 H Total Protein 6.0 L Albumin 2.9 L Triglycerides Arterial Blood Glucose Arterial Blood Ionized Calcium Digoxin Crossmatch Allied health notes reviewed: nursing
[2021-02-05] MEDS ORDERED: TOTAL PARENTERAL NUTRITION 2,016 ML IV SCH (20:00)
[2021-02-05] MEDS: INSULIN GLARGINE 100 UNITS/ML SUB-Q SCH (22:04)
[2021-02-06] MEDS: INSULIN LISPRO 100 UNIT/ML SUB-Q SCH ×5 (04:42→18:50)
[2021-02-06] MEDS: METOPROLOL TARTRATE 5 MG/5 ML INJ IV SCH ×5 (05:07→18:49)
[2021-02-06] MEDS: hydrALAZINE 20 MG/1 ML INJ IV SCH ×5 (05:07→18:49)
[2021-02-06 08:53] LABS: Calcium 8.5 mg/dL (8.4-10.2)
[2021-02-06] MEDS: FAMOTIDINE 20 MG/2 ML INJ IV SCH (10:44)
[2021-02-06] MEDS: HEPARIN 5,000 UNIT/1 ML VIAL SUB-Q SCH ×2 (10:44→21:46)
[2021-02-06] MEDS: DIGOXIN 0.125 MG TAB PO SCH (10:45)
[2021-02-06] MEDS: HYDROmorphone 1 MG/1 ML INJ IV PRN (12:01)
[2021-02-06] MEDS: EPOETIN ALFA-EPBX 10,000 UNIT/1 ML VIAL SUB-Q PRN (12:02)
--- NOTE | 2021-02-06 14:19 | Progress Note ---
Assessment and Plan This is a 60 YO Male with ESRD on PD, GERD, Crohn's Disease, Nicotine Dependence, HTN, Systolic CHF(EF 35%) who presented to the emergency department on 12/22 with complaints of abdominal pain which began shortly after eating fast food rated 10/10 which is periumbilical, constant, associated with fever, nausea and multiple sites of vomiting and self-reported inability to undergo PD. In the emergency room patient underwent a CT scan of the abdomen/pelvis which revealed evidence of partial small bowel obstruction, symptoms were consistent with bacterial peritonitis. Patient was admitted to the hospital service with sepsis, peritonitis, and small bowel obstruction with consults to general surgery, nephrology, infectious disease and [facility]. On 01/06/21 the patient underwent an exploratory laparotomy, jejunal colonic anastomosis, and segmental small bowel resection. ABG's (01/07/21): pH 7.345 pH POC ABG pCO2 41.4 mmHg ABG pCO2 40.3 mm Hg POC ABG pO2 94.5 mmHg ABG pO2 67.4 mm Hg POC ABG HCO3 22.7 ABG O2 Saturation 94.3 % Patient sleeping at this time.Patient is on room air. O2 saturation 100%. No acute respiratory distress. Patient afebrile. Has mild leukocytosis. Blood pressure 144/75. Patient is on Clonadine and metoprol. Management as per primary care. Chest x-ray 01/03/21 reported There is decreased inspiration compared to yesterday's exam. Hazy opacity in the right perihilar region and larger area of infiltration in the left lower lung appears stable given differences in the level of inspiration. No large pleural effusion or pneumothorax. Patient presently on s/c heparin, famotidine - Patient Problems (1) Nicotine dependence Current Visit: Yes Status: Acute Qualifiers: Nicotine product type: cigarettes Substance use status: in withdrawal Qualified Code(s): F17.213 - Nicotine dependence, cigarettes, with withdrawal Plan to address problem: Counseled patient to stop smoking. (2) SOB (shortness of breath) Current Visit: No Status: Acute Plan to address problem: Improved. Patient resting on room air at this time. O2 saturation 100%. (3) Atrial fibrillation Current Visit: Yes Status: Acute Plan to address problem: Management as per cardiology. (4) CHF (congestive heart failure) Current Visit: No Status: Acute Qualifiers: Heart failure chronicity: chronic Plan to address problem: Management as per cardiology. (5) Small bowel obstruction Current Visit: Yes Status: Acute Plan to address problem: On 01/06/21 the patient underwent an exploratory laparotomy, jejunal colonic anastomosis, and segmental small bowel resection. Management as per surgery. Continue incentive spirometry (6) Small intestinal gangrene Current Visit: Yes Status: Acute Plan to address problem: On 01/06/21 the patient underwent an exploratory laparotomy, jejunal colonic anastomosis, and segmental small bowel resection. Management as per surgery. Continue incentive spirometry (7) Accelerated hypertension Current Visit: No Status: Acute Plan to address problem: Management as per primary care. (8) Acute on chronic kidney disease, stage 3 Current Visit: No Status: Acute Plan to address problem: Management as per nephrology. Subjective Date of service: 02/06/21 Principal diagnosis: Ac hypoxemic resp failure; Severe Sepsis; Peritonitis; Acute SBO; ESRD; CHF Interval history: This is a 60 YO Male with ESRD on PD, GERD, Crohn's Disease, Nicotine Dependence, HTN, Systolic CHF(EF 35%) who presented to the emergency department on 12/22 with complaints of abdominal pain which began shortly after eating fast food rated 10/10 which is periumbilical, constant, associated with fever, nausea and multiple sites of vomiting and self-reported inability to undergo PD. In the emergency room patient underwent a CT scan of the abdomen/pelvis which revealed evidence of partial small bowel obstruction, symptoms were consistent with bacterial peritonitis. Patient was admitted to the hospital service with sepsis, peritonitis, and small bowel obstruction with consults to general surgery, nephrology, infectious disease and [facility]. On 01/06/21 the patient underwent an exploratory laparotomy, jejunal colonic anas tomosis, and segmental small bowel resection. ABG's (01/07/21): pH 7.345 pH POC ABG pCO2 41.4 mmHg ABG pCO2 40.3 mm Hg POC ABG pO2 94.5 mmHg ABG pO2 67.4 mm Hg POC ABG HCO3 22.7 ABG O2 Saturation 94.3 % Patient sleeping at this time.Patient is on room air. O2 saturation 100%. No acute respiratory distress. Patient afebrile. Has mild leukocytosis. Blood pressure 144/75. Patient is on Clonadine and metoprol. Management as per primary care. Chest x-ray 01/03/21 reported There is decreased inspiration compared to yesterday's exam. Hazy opacity in the right perihilar region and larger area of infiltration in the left lower lung appears stable given differences in the level of inspiration. No large pleural effusion or pneumothorax. Patient presently on s/c heparin, famotidine Objective Vital Signs - 12hr 02/06/21 02/06/21 02/06/21 05:02 05:07 05:29 Temperature 98.9 F Pulse Rate 86 Respiratory 18 Rate Blood Pressure 124/68 132/64 Blood Pressure 132/64 [Right] O2 Sat by Pulse 97 Oximetry 02/06/21 02/06/21 02/06/21 11:15 11:30 11:45 Temperature 98.6 F Pulse Rate 77 71 82 Respiratory 18 Rate Blood Pressure 174/77 161/78 158/75 Blood Pressure [Right] O2 Sat by Pulse Oximetry 02/06/21 02/06/21 02/06/21 12:00 12:15 12:30 Temperature Pulse Rate 84 87 88 Respiratory Rate Blood Pressure 149/77 154/75 152/74 Blood Pressure [Right] O2 Sat by Pulse Oximetry 02/06/21 02/06/21 02/06/21 12:45 13:00 13:15 Temperature Pulse Rate 96 H 83 81 Respiratory Rate Blood Pressure 169/80 138/75 154/65 Blood Pressure [Right] O2 Sat by Pulse Oximetry 02/06/21 02/06/21 02/06/21 13:30 13:45 14:00 Temperature Pulse Rate 91 H 87 89 Respiratory Rate Blood Pressure 145/72 136/63 148/79 Blood Pressure [Right] O2 Sat by Pulse Oximetry Constitutional: no acute distress, asleep Eyes: non-icteric ENT: oropharynx moist Neck: supple, no lymphadenopathy, no JVD Effort: normal Ascultation: Bilateral: diminished breath sounds, rales, rhonchi Percussion: Bilateral: not dull Cardiovascular: regular rate and rhythm, other (S1,S2) Gastrointestinal: hypoactive bowel sounds, soft, non-tender, non-distended (protuberant), other (Midline abdominal incision; + PEG) Integumentary: other (Midline abdominal incision ) Extremities: no cyanosis, no edema, pulses normal, no ischemia or petechiae Neurologic: non-focal exam (grossly), pupils equal and round, CN II-XII normal Psychiatric: other (Patient sleeping.) CBC and BMP: 02/07/21 04:35 02/07/21 04:35 ABG, PT/INR, D-dimer: ABG ABG pH 7.345 pH Units (7.350-7.450) L 01/07/21 17:14 POC ABG pCO2 41.4 mmHg (32.0-48.0) 01/07/21 03:07 ABG pCO2 40.3 mm Hg 01/07/21 17:14 POC ABG pO2 94.5 mmHg (83-108) 01/07/21 03:07 ABG pO2 67.4 mm Hg (80.0-90.0) L 01/07/21 17:14 POC ABG HCO3 22.7 01/07/21 03:07 ABG O2 Saturation 94.3 % (95.0-99.0) L 01/07/21 17:14 PT/INR, D-dimer PT 16.9 Sec. (12.2-14.9) H 01/01/21 12:45 INR 1.39 (0.87-1.13) H 01/01/21 12:45 Abnormal lab findings: Abnormal Labs 12/22/20 12/22/20 12/22/20 14:38 14:38 14:38 WBC RBC Hgb 11.2 L Hct 35.0 L MCV MCHC RDW 16.7 H Plt Count Lymph % (Auto) [place] % (Auto) Eos % (Auto) Lymph # (Auto) [place] # (Auto) Eos # (Auto) Seg Neutrophils % Seg Neuts % (Manual) 94.0 H Lymphocytes % (Manual) 5.0 L Monocytes % (Manual) Seg Neutrophils # Seg Neutrophils # Man Lymphocytes # (Manual) 0.3 L Monocytes # (Manual) PT INR ABG pH POC ABG pCO2 POC ABG pO2 ABG pO2 ABG HCO3 ABG O2 Saturation ABG Base Excess ABG Hemoglobin ABG Oxyhemoglobin ABG Sodium ABG Potassium ABG Chloride ABG Glucose Oxyhemoglobin Sodium Potassium Chloride Carbon Dioxide BUN 58 H Creatinine 13.2 H Glucose 113 H POC Glucose Lactic Acid 3.60 H* Calcium Phosphorus Magnesium Total Bilirubin 1.30 H AST ALT Alkaline Phosphatase 155 H Total Protein Albumin Triglycerides Arterial Blood Glucose Arterial Blood Ionized Calcium Digoxin Crossmatch 12/22/20 12/22/20 12/23/20 16:26 17:47 05:22 WBC RBC Hgb Hct MCV MCHC RDW Plt Count Lymph % (Auto) [place] % (Auto) Eos % (Auto) Lymph # (Auto) [place] # (Auto) Eos # (Auto) Seg Neutrophils % Seg Neuts % (Manual) Lymphocytes % (Manual) Monocytes % (Manual) Seg Neutrophils # Seg Neutrophils # Man Lymphocytes # (Manual) Monocytes # (Manual) PT INR ABG pH POC ABG pCO2 POC ABG pO2 ABG pO2 ABG HCO3 ABG O2 Saturation ABG Base Excess ABG Hemoglobin ABG Oxyhemoglobin ABG Sodium ABG Potassium ABG Chloride ABG Glucose Oxyhemoglobin Sodium Potassium Chloride Carbon Dioxide BUN Creatinine Glucose POC Glucose Lactic Acid 2.80 H* 3.10 H* 2.30 H* Calcium Phosphorus Magnesium Total Bilirubin AST ALT Alkaline Phosphatase Total Protein Albumin Triglycerides Arterial Blood Glucose Arterial Blood Ionized Calcium Digoxin Crossmatch 12/23/20 12/23/20 12/23/20 05:22 05:22 06:35 WBC 12.1 H RBC Hgb 11.0 L Hct 33.7 L MCV MCHC RDW 16.9 H Plt Count Lymph % (Auto) [place] % (Auto) Eos % (Auto) Lymph # (Auto) [place] # (Auto) Eos # (Auto) Seg Neutrophils % Seg Neuts % (Manual) 93.0 H Lymphocytes % (Manual) 1.0 L Monocytes % (Manual) Seg Neutrophils # Seg Neutrophils # Man 11.3 H Lymphocytes # (Manual) 0.1 L Monocytes # (Manual) PT INR ABG pH POC ABG pCO2 POC ABG pO2 ABG pO2 ABG HCO3 ABG O2 Saturation ABG Base Excess ABG Hemoglobin ABG Oxyhemoglobin ABG Sodium ABG Potassium ABG Chloride ABG Glucose Oxyhemoglobin Sodium Potassium 5.7 H D Chloride Carbon Dioxide BUN 73 H Creatinine 14.2 H Glucose POC Glucose Lactic Acid 2.30 H* Calcium 7.9 L Phosphorus Magnesium Total Bilirubin 1.40 H AST 119 H ALT 130 H Alkaline Phosphatase 183 H Total Protein 6.1 L Albumin 3.6 L Triglycerides Arterial Blood Glucose Arterial Blood Ionized Calcium Digoxin Crossmatch 12/23/20 12/23/20 12/23/20 11:40 13:53 16:47 WBC RBC Hgb 10.0 L Hct 30.4 L MCV MCHC RDW Plt Count Lymph % (Auto) [place] % (Auto) Eos % (Auto) Lymph # (Auto) [place] # (Auto) Eos # (Auto) Seg Neutrophils % Seg Neuts % (Manual) Lymphocytes % (Manual) Monocytes % (Manual) Seg Neutrophils # Seg Neutrophils # Man Lymphocytes # (Manual) Monocytes # (Manual) PT INR ABG pH POC ABG pCO2 POC ABG pO2 137.5 H ABG pO2 ABG HCO3 ABG O2 Saturation ABG Base Excess ABG Hemoglobin 9.7 L ABG Oxyhemoglobin ABG Sodium 134.1 L ABG Potassium 6.6 H ABG Chloride ABG Glucose 103 H Oxyhemoglobin Sodium Potassium Chloride Carbon Dioxide BUN Creatinine Glucose POC Glucose Lactic Acid Calcium Phosphorus Magnesium Total Bilirubin AST ALT Alkaline Phosphatase Total Protein Albumin Triglycerides Arterial Blood Glucose 103 H Arterial Blood Ionized Calcium 3.8 L Digoxin Crossmatch See Detail 12/23/20 12/23/20 12/24/20 20:35 20:40 01:20 WBC RBC Hgb Hct MCV MCHC RDW Plt Count Lymph % (Auto) [place] % (Auto) Eos % (Auto) Lymph # (Auto) [place] # (Auto) Eos # (Auto) Seg Neutrophils % Seg Neuts % (Manual) Lymphocytes % (Manual) Monocytes % (Manual) Seg Neutrophils # Seg Neutrophils # Man Lymphocytes # (Manual) Monocytes # (Manual) PT INR ABG pH 7.252 L POC ABG pCO2 POC ABG pO2 ABG pO2 50.1 L ABG HCO3 ABG O2 Saturation 81.1 L ABG Base Excess -5.9 L ABG Hemoglobin 12.1 L ABG Oxyhemoglobin ABG Sodium ABG Potassium ABG Chloride ABG Glucose Oxyhemoglobin 78.6 L Sodium 134 L Potassium 6.9 H* D 6.3 H* Chloride Carbon Dioxide 18 L 20 L BUN 87 H 91 H Creatinine 15.3 H 15.3 H Glucose 103 H POC Glucose Lactic Acid Calcium 6.9 L 7.5 L Phosphorus Magnesium Total Bilirubin AST ALT Alkaline Phosphatase Total Protein Albumin Triglycerides Arterial Blood Glucose Arterial Blood Ionized Calcium Digoxin Crossmatch 12/24/20 12/24/20 12/24/20 04:00 10:29 10:29 WBC RBC 3.49 L Hgb 10.5 L Hct 31.2 L MCV MCHC RDW 17.5 H Plt Count 124 L Lymph % (Auto) 3.7 L [place] % (Auto) 9.8 H Eos % (Auto) Lymph # (Auto) 0.2 L [place] # (Auto) Eos # (Auto) Seg Neutrophils % 85.9 H Seg Neuts % (Manual) Lymphocytes % (Manual) Monocytes % (Manual) Seg Neutrophils # Seg Neutrophils # Man Lymphocytes # (Manual) Monocytes # (Manual) PT INR ABG pH POC ABG pCO2 28.1 L POC ABG pO2 ABG pO2 ABG HCO3 ABG O2 Saturation ABG Base Excess ABG Hemoglobin ABG Oxyhemoglobin ABG Sodium 133.9 L ABG Potassium 5.3 H ABG Chloride 108.0 H ABG Glucose Oxyhemoglobin Sodium Potassium 5.6 H Chloride Carbon Dioxide 19 L BUN 99 H Creatinine 16.9 H Glucose 52 L POC Glucose Lactic Acid Calcium 7.6 L Phosphorus Magnesium Total Bilirubin 3.50 H AST 67 H ALT 71 H Alkaline Phosphatase Total Protein 3.5 L D Albumin 2.1 L Triglycerides Arterial Blood Glucose Arterial Blood Ionized Calcium 4.0 L Digoxin Crossmatch 12/25/20 12/25/20 12/25/20 03:33 04:00 04:00 WBC 3.8 L RBC 2.90 L Hgb 8.6 L Hct 25.7 L MCV MCHC RDW 16.7 H Plt Count 113 L Lymph % (Auto) [place] % (Auto) Eos % (Auto) Lymph # (Auto) [place] # (Auto) Eos # (Auto) Seg Neutrophils % Seg Neuts % (Manual) Lymphocytes % (Manual) Monocytes % (Manual) Seg Neutrophils # Seg Neutrophils # Man Lymphocytes # (Manual) Monocytes # (Manual) PT INR ABG pH 7.544 H POC ABG pCO2 28.2 L POC ABG pO2 62.8 L ABG pO2 ABG HCO3 ABG O2 Saturation ABG Base Excess ABG Hemoglobin 9.3 L ABG Oxyhemoglobin 93.0 L ABG Sodium 130.3 L ABG Potassium ABG Chloride ABG Glucose 97 H Oxyhemoglobin Sodium Potassium Chloride Carbon Dioxide BUN 62 H Creatinine 11.4 H Glucose POC Glucose Lactic Acid Calcium 7.7 L Phosphorus 5.00 H Magnesium Total Bilirubin AST ALT Alkaline Phosphatase Total Protein Albumin Triglycerides Arterial Blood Glucose 97 H Arterial Blood Ionized Calcium 3.9 L Digoxin Crossmatch 12/26/20 12/26/20 12/27/20 04:46 Unknown 03:40 WBC 4.1 L RBC 2.61 L Hgb 7.8 L Hct 23.4 L MCV MCHC RDW 17.1 H Plt Count 119 L Lymph % (Auto) 5.3 L [place] % (Auto) 10.6 H Eos % (Auto) Lymph # (Auto) 0.2 L [place] # (Auto) Eos # (Auto) Seg Neutrophils % 78.8 H Seg Neuts % (Manual) Lymphocytes % (Manual) Monocytes % (Manual) Seg Neutrophils # Seg Neutrophils # Man Lymphocytes # (Manual) Monocytes # (Manual) PT INR ABG pH 7.333 L 7.332 L POC ABG pCO2 POC ABG pO2 ABG pO2 ABG HCO3 26.9 H ABG O2 Saturation ABG Base Excess -2.4 L ABG Hemoglobin 6.8 L 7.2 L ABG Oxyhemoglobin ABG Sodium ABG Potassium ABG Chloride ABG Glucose Oxyhemoglobin 93.0 L 93.1 L Sodium Potassium Chloride Carbon Dioxide BUN Creatinine Glucose POC Glucose Lactic Acid Calcium Phosphorus Magnesium Total Bilirubin AST ALT Alkaline Phosphatase Total Protein Albumin Triglycerides Arterial Blood Glucose Arterial Blood Ionized Calcium Digoxin Crossmatch 12/27/20 12/27/20 12/27/20 06:40 06:40 11:22 WBC 4.4 L RBC 2.49 L Hgb 7.4 L Hct 22.4 L MCV MCHC RDW 17.1 H Plt Count 111 L Lymph % (Auto) 6.7 L [place] % (Auto) 12.6 H Eos % (Auto) Lymph # (Auto) 0.3 L [place] # (Auto) Eos # (Auto) Seg Neutrophils % 77.6 H Seg Neuts % (Manual) Lymphocytes % (Manual) Monocytes % (Manual) Seg Neutrophils # Seg Neutrophils # Man Lymphocytes # (Manual) Monocytes # (Manual) PT INR ABG pH POC ABG pCO2 POC ABG pO2 ABG pO2 ABG HCO3 ABG O2 Saturation ABG Base Excess ABG Hemoglobin ABG Oxyhemoglobin ABG Sodium ABG Potassium ABG Chloride ABG Glucose Oxyhemoglobin Sodium Potassium Chloride Carbon Dioxide BUN 64 H Creatinine 9.8 H Glucose 147 H POC Glucose 134 H Lactic Acid Calcium 8.3 L Phosphorus 5.00 H Magnesium Total Bilirubin 3.70 H AST 72 H ALT Alkaline Phosphatase 142 H Total Protein 5.1 L D Albumin 2.9 L Triglycerides Arterial Blood Glucose Arterial Blood Ionized Calcium Digoxin Crossmatch 12/27/20 12/27/20 12/28/20 17:29 23:31 03:09 WBC RBC Hgb Hct MCV MCHC RDW Plt Count Lymph % (Auto) [place] % (Auto) Eos % (Auto) Lymph # (Auto) [place] # (Auto) Eos # (Auto) Seg Neutrophils % Seg Neuts % (Manual) Lymphocytes % (Manual) Monocytes % (Manual) Seg Neutrophils # Seg Neutrophils # Man Lymphocytes # (Manual) Monocytes # (Manual) PT INR ABG pH 7.474 H POC ABG pCO2 POC ABG pO2 ABG pO2 ABG HCO3 ABG O2 Saturation ABG Base Excess ABG Hemoglobin 7.8 L ABG Oxyhemoglobin ABG Sodium ABG Potassium ABG Chloride ABG Glucose Oxyhemoglobin Sodium Potassium Chloride Carbon Dioxide BUN Creatinine Glucose POC Glucose 121 H 131 H Lactic Acid Calcium Phosphorus Magnesium Total Bilirubin AST ALT Alkaline Phosphatase Total Protein Albumin Triglycerides Arterial Blood Glucose Arterial Blood Ionized Calcium Digoxin Crossmatch 12/28/20 12/28/20 12/28/20 05:37 05:40 05:40 WBC 4.3 L RBC 2.40 L Hgb 7.2 L Hct 21.5 L MCV MCHC RDW 17.4 H Plt Count 112 L Lymph % (Auto) 6.5 L [place] % (Auto) 16.7 H Eos % (Auto) Lymph # (Auto) 0.3 L [place] # (Auto) Eos # (Auto) Seg Neutrophils % 71.1 H Seg Neuts % (Manual) Lymphocytes % (Manual) Monocytes % (Manual) Seg Neutrophils # Seg Neutrophils # Man Lymphocytes # (Manual) Monocytes # (Manual) PT INR ABG pH POC ABG pCO2 POC ABG pO2 ABG pO2 ABG HCO3 ABG O2 Saturation ABG Base Excess ABG Hemoglobin ABG Oxyhemoglobin ABG Sodium ABG Potassium ABG Chloride ABG Glucose Oxyhemoglobin Sodium Potassium Chloride Carbon Dioxide BUN 85 H Creatinine 11.5 H Glucose 132 H POC Glucose 121 H Lactic Acid Calcium 8.2 L Phosphorus Magnesium 2.40 H Total Bilirubin 3.80 H AST 70 H ALT Alkaline Phosphatase 176 H Total Protein 5.0 L Albumin 2.9 L Triglycerides Arterial Blood Glucose Arterial Blood Ionized Calcium Digoxin Crossmatch 12/28/20 12/28/20 12/28/20 11:34 15:00 17:35 WBC RBC Hgb Hct MCV MCHC RDW Plt Count Lymph % (Auto) [place] % (Auto) Eos % (Auto) Lymph # (Auto) [place] # (Auto) Eos # (Auto) Seg Neutrophils % Seg Neuts % (Manual) Lymphocytes % (Manual) Monocytes % (Manual) Seg Neutrophils # Seg Neutrophils # Man Lymphocytes # (Manual) Monocytes # (Manual) PT INR ABG pH 7.461 H POC ABG pCO2 POC ABG pO2 72.2 L ABG pO2 ABG HCO3 ABG O2 Saturation ABG Base Excess ABG Hemoglobin 8.2 L ABG Oxyhemoglobin 93.6 L ABG Sodium 134.1 L ABG Potassium 3.2 L ABG Chloride ABG Glucose 135 H Oxyhemoglobin Sodium Potassium Chloride Carbon Dioxide BUN Creatinine Glucose POC Glucose 137 H 144 H Lactic Acid Calcium Phosphorus Magnesium Total Bilirubin AST ALT Alkaline Phosphatase Total Protein Albumin Triglycerides Arterial Blood Glucose 135 H Arterial Blood Ionized Calcium 4.4 L Digoxin Crossmatch 12/28/20 12/28/20 12/29/20 19:44 Unknown 00:21 WBC RBC Hgb Hct MCV MCHC RDW Plt Count Lymph % (Auto) [place] % (Auto) Eos % (Auto) Lymph # (Auto) [place] # (Auto) Eos # (Auto) Seg Neutrophils % Seg Neuts % (Manual) Lymphocytes % (Manual) Monocytes % (Manual) Seg Neutrophils # Seg Neutrophils # Man Lymphocytes # (Manual) Monocytes # (Manual) PT INR ABG pH 7.474 H POC ABG pCO2 POC ABG pO2 ABG pO2 ABG HCO3 ABG O2 Saturation ABG Base Excess ABG Hemoglobin 7.8 L ABG Oxyhemoglobin ABG Sodium 133.2 L ABG Potassium ABG Chloride ABG Glucose 139 H Oxyhemoglobin Sodium 135 L Potassium Chloride 96.6 L Carbon Dioxide BUN 47 H Creatinine 7.4 H Glucose 130 H POC Glucose 142 H Lactic Acid Calcium 8.3 L Phosphorus Magnesium Total Bilirubin AST ALT Alkaline Phosphatase Total Protein Albumin Triglycerides Arterial Blood Glucose 139 H Arterial Blood Ionized Calcium 4.3 L Digoxin Crossmatch 12/29/20 12/29/20 12/29/20 05:16 05:16 05:26 WBC RBC 2.53 L Hgb 7.7 L Hct 22.8 L MCV MCHC RDW 17.0 H Plt Count 130 L Lymph % (Auto) [place] % (Auto) Eos % (Auto) Lymph # (Auto) [place] # (Auto) Eos # (Auto) Seg Neutrophils % Seg Neuts % (Manual) 79.0 H Lymphocytes % (Manual) 9.0 L Monocytes % (Manual) Seg Neutrophils # Seg Neutrophils # Man Lymphocytes # (Manual) 0.6 L Monocytes # (Manual) PT INR ABG pH POC ABG pCO2 POC ABG pO2 ABG pO2 ABG HCO3 ABG O2 Saturation ABG Base Excess ABG Hemoglobin ABG Oxyhemoglobin ABG Sodium ABG Potassium ABG Chloride ABG Glucose Oxyhemoglobin Sodium Potassium 3.4 L Chloride 96.6 L Carbon Dioxide BUN 59 H Creatinine 8.3 H Glucose 127 H POC Glucose 141 H Lactic Acid Calcium 8.2 L Phosphorus Magnesium Total Bilirubin 3.00 H AST 88 H ALT Alkaline Phosphatase 188 H Total Protein 5.1 L Albumin 2.8 L Triglycerides Arterial Blood Glucose Arterial Blood Ionized Calcium Digoxin Crossmatch 12/29/20 12/29/20 12/29/20 11:33 17:29 23:22 WBC RBC Hgb Hct MCV MCHC RDW Plt Count Lymph % (Auto) [place] % (Auto) Eos % (Auto) Lymph # (Auto) [place] # (Auto) Eos # (Auto) Seg Neutrophils % Seg Neuts % (Manual) Lymphocytes % (Manual) Monocytes % (Manual) Seg Neutrophils # Seg Neutrophils # Man Lymphocytes # (Manual) Monocytes # (Manual) PT INR ABG pH POC ABG pCO2 POC ABG pO2 ABG pO2 ABG HCO3 ABG O2 Saturation ABG Base Excess ABG Hemoglobin ABG Oxyhemoglobin ABG Sodium ABG Potassium ABG Chloride ABG Glucose Oxyhemoglobin Sodium Potassium Chloride Carbon Dioxide BUN Creatinine Glucose POC Glucose 144 H 130 H 117 H Lactic Acid Calcium Phosphorus Magnesium Total Bilirubin AST ALT Alkaline Phosphatase Total Protein Albumin Triglycerides Arterial Blood Glucose Arterial Blood Ionized Calcium Digoxin Crossmatch 12/30/20 12/30/20 12/30/20 05:23 08:15 09:00 WBC RBC Hgb Hct MCV MCHC RDW Plt Count Lymph % (Auto) [place] % (Auto) Eos % (Auto) Lymph # (Auto) [place] # (Auto) Eos # (Auto) Seg Neutrophils % Seg Neuts % (Manual) Lymphocytes % (Manual) Monocytes % (Manual) Seg Neutrophils # Seg Neutrophils # Man Lymphocytes # (Manual) Monocytes # (Manual) PT INR ABG pH POC ABG pCO2 POC ABG pO2 ABG pO2 ABG HCO3 ABG O2 Saturation ABG Base Excess ABG Hemoglobin ABG Oxyhemoglobin ABG Sodium ABG Potassium ABG Chloride ABG Glucose Oxyhemoglobin Sodium 135 L Potassium Chloride 95.9 L Carbon Dioxide BUN 85 H Creatinine 10.6 H Glucose 128 H POC Glucose 135 H 127 H Lactic Acid Calcium 8.3 L Phosphorus Magnesium Total Bilirubin 2.40 H AST 85 H ALT Alkaline Phosphatase 216 H Total Protein 5.3 L Albumin 2.6 L Triglycerides 155 H Arterial Blood Glucose Arterial Blood Ionized Calcium Digoxin Crossmatch 12/30/20 12/30/20 12/30/20 09:00 11:53 15:49 WBC RBC 2.61 L Hgb 7.8 L Hct 23.7 L MCV MCHC RDW 17.3 H Plt Count Lymph % (Auto) [place] % (Auto) Eos % (Auto) Lymph # (Auto) [place] # (Auto) Eos # (Auto) Seg Neutrophils % Seg Neuts % (Manual) Lymphocytes % (Manual) Monocytes % (Manual) Seg Neutrophils # Seg Neutrophils # Man Lymphocytes # (Manual) Monocytes # (Manual) PT INR ABG pH POC ABG pCO2 POC ABG pO2 ABG pO2 ABG HCO3 ABG O2 Saturation ABG Base Excess ABG Hemoglobin ABG Oxyhemoglobin ABG Sodium ABG Potassium ABG Chloride ABG Glucose Oxyhemoglobin Sodium Potassium Chloride Carbon Dioxide BUN Creatinine Glucose POC Glucose 155 H 146 H Lactic Acid Calcium Phosphorus Magnesium Total Bilirubin AST ALT Alkaline Phosphatase Total Protein Albumin Triglycerides Arterial Blood Glucose Arterial Blood Ionized Calcium Digoxin Crossmatch 12/30/20 12/30/20 12/31/20 17:53 23:45 03:56 WBC RBC Hgb Hct MCV MCHC RDW Plt Count Lymph % (Auto) [place] % (Auto) Eos % (Auto) Lymph # (Auto) [place] # (Auto) Eos # (Auto) Seg Neutrophils % Seg Neuts % (Manual) Lymphocytes % (Manual) Monocytes % (Manual) Seg Neutrophils # Seg Neutrophils # Man Lymphocytes # (Manual) Monocytes # (Manual) PT INR ABG pH POC ABG pCO2 POC ABG pO2 49.4 L ABG pO2 ABG HCO3 ABG O2 Saturation ABG Base Excess ABG Hemoglobin 10.3 L ABG Oxyhemoglobin 84.2 L ABG Sodium 133.1 L ABG Potassium ABG Chloride ABG Glucose 173 H Oxyhemoglobin Sodium Potassium Chloride Carbon Dioxide BUN Creatinine Glucose POC Glucose 139 H 173 H Lactic Acid Calcium Phosphorus Magnesium Total Bilirubin AST ALT Alkaline Phosphatase Total Protein Albumin Triglycerides Arterial Blood Glucose 173 H Arterial Blood Ionized Calcium Digoxin Crossmatch 12/31/20 12/31/20 12/31/20 05:07 06:51 06:51 WBC 20.3 H RBC 3.32 L Hgb 9.8 L Hct 30.3 L D MCV MCHC RDW 17.3 H Plt Count Lymph % (Auto) [place] % (Auto) Eos % (Auto) Lymph # (Auto) [place] # (Auto) Eos # (Auto) Seg Neutrophils % Seg Neuts % (Manual) 87.0 H Lymphocytes % (Manual) 10.0 L Monocytes % (Manual) Seg Neutrophils # Seg Neutrophils # Man 17.7 H Lymphocytes # (Manual) Monocytes # (Manual) PT INR ABG pH POC ABG pCO2 POC ABG pO2 ABG pO2 ABG HCO3 ABG O2 Saturation ABG Base Excess ABG Hemoglobin ABG Oxyhemoglobin ABG Sodium ABG Potassium ABG Chloride ABG Glucose Oxyhemoglobin Sodium Potassium 5.2 H D Chloride Carbon Dioxide BUN 62 H Creatinine 8.4 H Glucose 116 H POC Glucose 120 H Lactic Acid Calcium Phosphorus Magnesium 1.60 L Total Bilirubin AST ALT Alkaline Phosphatase Total Protein Albumin Triglycerides Arterial Blood Glucose Arterial Blood Ionized Calcium Digoxin Crossmatch 12/31/20 12/31/20 12/31/20 09:38 12:19 12:22 WBC RBC Hgb Hct MCV MCHC RDW Plt Count Lymph % (Auto) [place] % (Auto) Eos % (Auto) Lymph # (Auto) [place] # (Auto) Eos # (Auto) Seg Neutrophils % Seg Neuts % (Manual) Lymphocytes % (Manual) Monocytes % (Manual) Seg Neutrophils # Seg Neutrophils # Man Lymphocytes # (Manual) Monocytes # (Manual) PT INR ABG pH POC ABG pCO2 POC ABG pO2 ABG pO2 354.0 H ABG HCO3 ABG O2 Saturation 99.6 H ABG Base Excess ABG Hemoglobin 9.1 L ABG Oxyhemoglobin ABG Sodium ABG Potassium ABG Chloride ABG Glucose Oxyhemoglobin Sodium Potassium 5.2 H Chloride Carbon Dioxide BUN Creatinine Glucose POC Glucose 132 H Lactic Acid Calcium Phosphorus Magnesium Total Bilirubin AST ALT Alkaline Phosphatase Total Protein Albumin Triglycerides Arterial Blood Glucose Arterial Blood Ionized Calcium Digoxin Crossmatch 12/31/20 01/01/21 01/01/21 23:23 03:03 05:04 WBC RBC Hgb Hct MCV MCHC RDW Plt Count Lymph % (Auto) [place] % (Auto) Eos % (Auto) Lymph # (Auto) [place] # (Auto) Eos # (Auto) Seg Neutrophils % Seg Neuts % (Manual) Lymphocytes % (Manual) Monocytes % (Manual) Seg Neutrophils # Seg Neutrophils # Man Lymphocytes # (Manual) Monocytes # (Manual) PT INR ABG pH POC ABG pCO2 POC ABG pO2 79.6 L ABG pO2 ABG HCO3 ABG O2 Saturation ABG Base Excess ABG Hemoglobin 9.2 L ABG Oxyhemoglobin ABG Sodium 131.6 L ABG Potassium 5.8 H ABG Chloride ABG Glucose 177 H Oxyhemoglobin Sodium Potassium Chloride Carbon Dioxide BUN Creatinine Glucose POC Glucose 174 H 167 H Lactic Acid Calcium Phosphorus Magnesium Total Bilirubin AST ALT Alkaline Phosphatase Total Protein Albumin Triglycerides Arterial Blood Glucose 177 H Arterial Blood Ionized Calcium Digoxin Crossmatch 01/01/21 01/01/21 01/01/21 07:31 07:31 11:31 WBC 26.1 H RBC 2.95 L Hgb 8.6 L Hct 27.1 L MCV MCHC RDW 18.2 H Plt Count Lymph % (Auto) [place] % (Auto) Eos % (Auto) Lymph # (Auto) [place] # (Auto) Eos # (Auto) Seg Neutrophils % Seg Neuts % (Manual) 96.0 H Lymphocytes % (Manual) 4.0 L Monocytes % (Manual) Seg Neutrophils # Seg Neutrophils # Man 25.1 H Lymphocytes # (Manual) 1.0 L Monocytes # (Manual) PT INR ABG pH POC ABG pCO2 POC ABG pO2 ABG pO2 ABG HCO3 ABG O2 Saturation ABG Base Excess ABG Hemoglobin ABG Oxyhemoglobin ABG Sodium ABG Potassium ABG Chloride ABG Glucose Oxyhemoglobin Sodium Potassium 6.0 H Chloride Carbon Dioxide 21 L BUN 89 H Creatinine 10.5 H Glucose 179 H POC Glucose Lactic Acid Calcium Phosphorus Magnesium Total Bilirubin AST ALT Alkaline Phosphatase Total Protein Albumin Triglycerides Arterial Blood Glucose Arterial Blood Ionized Calcium Digoxin Crossmatch See Detail 01/01/21 01/01/21 01/01/21 11:51 12:45 16:52 WBC RBC Hgb Hct MCV MCHC RDW Plt Count Lymph % (Auto) [place] % (Auto) Eos % (Auto) Lymph # (Auto) [place] # (Auto) Eos # (Auto) Seg Neutrophils % Seg Neuts % (Manual) Lymphocytes % (Manual) Monocytes % (Manual) Seg Neutrophils # Seg Neutrophils # Man Lymphocytes # (Manual) Monocytes # (Manual) PT 16.9 H INR 1.39 H ABG pH POC ABG pCO2 POC ABG pO2 ABG pO2 ABG HCO3 ABG O2 Saturation ABG Base Excess ABG Hemoglobin ABG Oxyhemoglobin ABG Sodium ABG Potassium ABG Chloride ABG Glucose Oxyhemoglobin Sodium Potassium Chloride Carbon Dioxide BUN Creatinine Glucose POC Glucose 157 H 177 H Lactic Acid Calcium Phosphorus Magnesium Total Bilirubin AST ALT Alkaline Phosphatase Total Protein Albumin Triglycerides Arterial Blood Glucose Arterial Blood Ionized Calcium Digoxin Crossmatch 01/01/21 01/01/21 01/01/21 17:58 17:58 20:12 WBC 26.9 H RBC 3.14 L Hgb 9.3 L Hct 29.6 L MCV MCHC RDW 17.5 H Plt Count Lymph % (Auto) [place] % (Auto) Eos % (Auto) Lymph # (Auto) [place] # (Auto) Eos # (Auto) Seg Neutrophils % Seg Neuts % (Manual) 84.0 H Lymphocytes % (Manual) 4.0 L Monocytes % (Manual) 12.0 H Seg Neutrophils # Seg Neutrophils # Man 22.6 H Lymphocytes # (Manual) 1.1 L Monocytes # (Manual) 3.2 H PT INR ABG pH POC ABG pCO2 POC ABG pO2 ABG pO2 ABG HCO3 ABG O2 Saturation ABG Base Excess ABG Hemoglobin ABG Oxyhemoglobin ABG Sodium ABG Potassium ABG Chloride ABG Glucose Oxyhemoglobin Sodium 136 L Potassium 6.2 H* Chloride Carbon Dioxide 21 L BUN 92 H Creatinine 10.8 H Glucose 171 H POC Glucose 288 H Lactic Acid Calcium Phosphorus Magnesium Total Bilirubin 2.10 H AST 223 H ALT 100 H Alkaline Phosphatase 206 H Total Protein 4.8 L Albumin 1.9 L Triglycerides Arterial Blood Glucose Arterial Blood Ionized Calcium Digoxin Crossmatch 01/02/21 01/02/21 01/02/21 00:12 00:45 03:05 WBC RBC Hgb Hct MCV MCHC RDW Plt Count Lymph % (Auto) [place] % (Auto) Eos % (Auto) Lymph # (Auto) [place] # (Auto) Eos # (Auto) Seg Neutrophils % Seg Neuts % (Manual) Lymphocytes % (Manual) Monocytes % (Manual) Seg Neutrophils # Seg Neutrophils # Man Lymphocytes # (Manual) Monocytes # (Manual) PT INR ABG pH POC ABG pCO2 POC ABG pO2 81.8 L ABG pO2 ABG HCO3 ABG O2 Saturation ABG Base Excess ABG Hemoglobin 8.0 L ABG Oxyhemoglobin ABG Sodium 129.8 L ABG Potassium 5.4 H ABG Chloride ABG Glucose 257 H Oxyhemoglobin Sodium 136 L Potassium 5.8 H Chloride 96.6 L Carbon Dioxide BUN 95 H Creatinine 11.2 H Glucose 238 H POC Glucose 223 H Lactic Acid Calcium Phosphorus Magnesium Total Bilirubin AST ALT Alkaline Phosphatase Total Protein Albumin Triglycerides Arterial Blood Glucose 257 H Arterial Blood Ionized Calcium 4.0 L Digoxin Crossmatch 01/02/21 01/02/21 01/02/21 06:25 08:00 08:00 WBC 17.5 H RBC 2.31 L Hgb 6.7 L Hct 22.1 L D MCV 96 H MCHC 30 L RDW 18.4 H Plt Count Lymph % (Auto) [place] % (Auto) Eos % (Auto) Lymph # (Auto) [place] # (Auto) Eos # (Auto) Seg Neutrophils % Seg Neuts % (Manual) Lymphocytes % (Manual) Monocytes % (Manual) Seg Neutrophils # Seg Neutrophils # Man Lymphocytes # (Manual) Monocytes # (Manual) PT INR ABG pH POC ABG pCO2 POC ABG pO2 ABG pO2 ABG HCO3 ABG O2 Saturation ABG Base Excess ABG Hemoglobin ABG Oxyhemoglobin ABG Sodium ABG Potassium ABG Chloride ABG Glucose Oxyhemoglobin Sodium 134 L Potassium 5.3 H Chloride 92.9 L Carbon Dioxide BUN 101 H Creatinine 10.9 H Glucose 560 H* POC Glucose 239 H Lactic Acid Calcium 7.6 L Phosphorus 6.50 H Magnesium Total Bilirubin AST ALT Alkaline Phosphatase Total Protein Albumin Triglycerides Arterial Blood Glucose Arterial Blood Ionized Calcium Digoxin Crossmatch 01/02/21 01/02/21 01/02/21 11:26 15:00 17:57 WBC RBC Hgb Hct MCV MCHC RDW Plt Count Lymph % (Auto) [place] % (Auto) Eos % (Auto) Lymph # (Auto) [place] # (Auto) Eos # (Auto) Seg Neutrophils % Seg Neuts % (Manual) Lymphocytes % (Manual) Monocytes % (Manual) Seg Neutrophils # Seg Neutrophils # Man Lymphocytes # (Manual) Monocytes # (Manual) PT INR ABG pH POC ABG pCO2 POC ABG pO2 ABG pO2 ABG HCO3 ABG O2 Saturation ABG Base Excess ABG Hemoglobin ABG Oxyhemoglobin ABG Sodium ABG Potassium ABG Chloride ABG Glucose Oxyhemoglobin Sodium Potassium Chloride Carbon Dioxide BUN Creatinine Glucose 241 H POC Glucose 205 H 272 H Lactic Acid Calcium Phosphorus Magnesium Total Bilirubin AST ALT Alkaline Phosphatase Total Protein Albumin Triglycerides Arterial Blood Glucose Arterial Blood Ionized Calcium Digoxin Crossmatch 01/02/21 01/02/21 01/03/21 23:25 23:43 03:45 WBC RBC Hgb Hct MCV MCHC RDW Plt Count Lymph % (Auto) [place] % (Auto) Eos % (Auto) Lymph # (Auto) [place] # (Auto) Eos # (Auto) Seg Neutrophils % Seg Neuts % (Manual) Lymphocytes % (Manual) Monocytes % (Manual) Seg Neutrophils # Seg Neutrophils # Man Lymphocytes # (Manual) Monocytes # (Manual) PT INR ABG pH POC ABG pCO2 48.3 H POC ABG pO2 134.4 H 79.7 L ABG pO2 ABG HCO3 ABG O2 Saturation ABG Base Excess ABG Hemoglobin 7.7 L 8.6 L ABG Oxyhemoglobin ABG Sodium 131.8 L 130.4 L ABG Potassium ABG Chloride 97.0 L ABG Glucose 218 H 238 H Oxyhemoglobin Sodium Potassium Chloride Carbon Dioxide BUN Creatinine Glucose POC Glucose 218 H Lactic Acid Calcium Phosphorus Magnesium Total Bilirubin AST ALT Alkaline Phosphatase Total Protein Albumin Triglycerides Arterial Blood Glucose 218 H 238 H Arterial Blood Ionized Calcium 4.1 L 4.0 L Digoxin Crossmatch 01/03/21 01/03/21 01/03/21 04:37 04:37 05:39 WBC 15.2 H RBC 2.38 L Hgb 7.3 L Hct 21.6 L MCV MCHC RDW 16.6 H Plt Count Lymph % (Auto) [place] % (Auto) Eos % (Auto) Lymph # (Auto) [place] # (Auto) Eos # (Auto) Seg Neutrophils % Seg Neuts % (Manual) Lymphocytes % (Manual) Monocytes % (Manual) Seg Neutrophils # Seg Neutrophils # Man Lymphocytes # (Manual) Monocytes # (Manual) PT INR ABG pH POC ABG pCO2 POC ABG pO2 ABG pO2 ABG HCO3 ABG O2 Saturation ABG Base Excess ABG Hemoglobin ABG Oxyhemoglobin ABG Sodium ABG Potassium ABG Chloride ABG Glucose Oxyhemoglobin Sodium 136 L Potassium Chloride 94.5 L Carbon Dioxide BUN 69 H Creatinine 8.0 H Glucose 219 H POC Glucose 222 H Lactic Acid Calcium 7.8 L Phosphorus 4.80 H D Magnesium Total Bilirubin AST ALT Alkaline Phosphatase Total Protein Albumin Triglycerides Arterial Blood Glucose Arterial Blood Ionized Calcium Digoxin Crossmatch 01/03/21 01/03/21 01/03/21 11:29 18:49 23:37 WBC RBC Hgb Hct MCV MCHC RDW Plt Count Lymph % (Auto) [place] % (Auto) Eos % (Auto) Lymph # (Auto) [place] # (Auto) Eos # (Auto) Seg Neutrophils % Seg Neuts % (Manual) Lymphocytes % (Manual) Monocytes % (Manual) Seg Neutrophils # Seg Neutrophils # Man Lymphocytes # (Manual) Monocytes # (Manual) PT INR ABG pH POC ABG pCO2 POC ABG pO2 ABG pO2 ABG HCO3 ABG O2 Saturation ABG Base Excess ABG Hemoglobin ABG Oxyhemoglobin ABG Sodium ABG Potassium ABG Chloride ABG Glucose Oxyhemoglobin Sodium Potassium Chloride Carbon Dioxide BUN Creatinine Glucose POC Glucose 232 H 129 H 140 H Lactic Acid Calcium Phosphorus Magnesium Total Bilirubin AST ALT Alkaline Phosphatase Total Protein Albumin Triglycerides Arterial Blood Glucose Arterial Blood Ionized Calcium Digoxin Crossmatch 01/04/21 01/04/21 01/04/21 03:22 04:38 04:38 WBC 11.1 H RBC 2.89 L Hgb 8.9 L Hct 26.2 L MCV MCHC RDW 16.1 H Plt Count Lymph % (Auto) [place] % (Auto) Eos % (Auto) Lymph # (Auto) [place] # (Auto) Eos # (Auto) Seg Neutrophils % Seg Neuts % (Manual) Lymphocytes % (Manual) Monocytes % (Manual) Seg Neutrophils # Seg Neutrophils # Man Lymphocytes # (Manual) Monocytes # (Manual) PT INR ABG pH POC ABG pCO2 POC ABG pO2 82.3 L ABG pO2 ABG HCO3 ABG O2 Saturation ABG Base Excess ABG Hemoglobin 8.9 L ABG Oxyhemoglobin ABG Sodium 130.5 L ABG Potassium ABG Chloride ABG Glucose 124 H Oxyhemoglobin Sodium Potassium Chloride 95.5 L Carbon Dioxide BUN 87 H Creatinine 9.7 H Glucose 118 H POC Glucose Lactic Acid Calcium 7.7 L Phosphorus Magnesium Total Bilirubin AST ALT Alkaline Phosphatase Total Protein Albumin Triglycerides Arterial Blood Glucose 124 H Arterial Blood Ionized Calcium 3.5 L Digoxin Crossmatch 01/04/21 01/04/21 01/04/21 05:39 12:04 18:04 WBC RBC Hgb Hct MCV MCHC RDW Plt Count Lymph % (Auto) [place] % (Auto) Eos % (Auto) Lymph # (Auto) [place] # (Auto) Eos # (Auto) Seg Neutrophils % Seg Neuts % (Manual) Lymphocytes % (Manual) Monocytes % (Manual) Seg Neutrophils # Seg Neutrophils # Man Lymphocytes # (Manual) Monocytes # (Manual) PT INR ABG pH POC ABG pCO2 POC ABG pO2 ABG pO2 ABG HCO3 ABG O2 Saturation ABG Base Excess ABG Hemoglobin ABG Oxyhemoglobin ABG Sodium ABG Potassium ABG Chloride ABG Glucose Oxyhemoglobin Sodium Potassium Chloride Carbon Dioxide BUN Creatinine Glucose POC Glucose 134 H 125 H 131 H Lactic Acid Calcium Phosphorus Magnesium Total Bilirubin AST ALT Alkaline Phosphatase Total Protein Albumin Triglycerides Arterial Blood Glucose Arterial Blood Ionized Calcium Digoxin Crossmatch 01/04/21 01/05/21 01/05/21 23:41 03:23 04:49 WBC RBC Hgb Hct MCV MCHC RDW Plt Count Lymph % (Auto) [place] % (Auto) Eos % (Auto) Lymph # (Auto) [place] # (Auto) Eos # (Auto) Seg Neutrophils % Seg Neuts % (Manual) Lymphocytes % (Manual) Monocytes % (Manual) Seg Neutrophils # Seg Neutrophils # Man Lymphocytes # (Manual) Monocytes # (Manual) PT INR ABG pH POC ABG pCO2 POC ABG pO2 62.8 L ABG pO2 ABG HCO3 ABG O2 Saturation ABG Base Excess ABG Hemoglobin 9.5 L ABG Oxyhemoglobin 92.0 L ABG Sodium 130.1 L ABG Potassium ABG Chloride ABG Glucose 148 H Oxyhemoglobin Sodium Potassium Chloride 96.9 L Carbon Dioxide BUN 57 H Creatinine 6.7 H Glucose 135 H POC Glucose 132 H Lactic Acid Calcium 8.0 L Phosphorus Magnesium Total Bilirubin AST ALT Alkaline Phosphatase Total Protein Albumin Triglycerides Arterial Blood Glucose 148 H Arterial Blood Ionized Calcium 4.1 L Digoxin Crossmatch 01/05/21 01/05/21 01/05/21 05:04 11:48 12:39 WBC RBC 3.03 L Hgb 9.3 L Hct 27.6 L MCV MCHC RDW 16.5 H Plt Count Lymph % (Auto) [place] % (Auto) Eos % (Auto) Lymph # (Auto) [place] # (Auto) Eos # (Auto) Seg Neutrophils % Seg Neuts % (Manual) Lymphocytes % (Manual) Monocytes % (Manual) Seg Neutrophils # Seg Neutrophils # Man Lymphocytes # (Manual) Monocytes # (Manual) PT INR ABG pH POC ABG pCO2 POC ABG pO2 ABG pO2 ABG HCO3 ABG O2 Saturation ABG Base Excess ABG Hemoglobin ABG Oxyhemoglobin ABG Sodium ABG Potassium ABG Chloride ABG Glucose Oxyhemoglobin Sodium Potassium Chloride Carbon Dioxide BUN Creatinine Glucose POC Glucose 147 H 162 H Lactic Acid Calcium Phosphorus Magnesium Total Bilirubin AST ALT Alkaline Phosphatase Total Protein Albumin Triglycerides Arterial Blood Glucose Arterial Blood Ionized Calcium Digoxin Crossmatch 01/05/21 01/05/21 01/06/21 17:50 23:32 04:15 WBC RBC Hgb Hct MCV MCHC RDW Plt Count Lymph % (Auto) [place] % (Auto) Eos % (Auto) Lymph # (Auto) [place] # (Auto) Eos # (Auto) Seg Neutrophils % Seg Neuts % (Manual) Lymphocytes % (Manual) Monocytes % (Manual) Seg Neutrophils # Seg Neutrophils # Man Lymphocytes # (Manual) Monocytes # (Manual) PT INR ABG pH POC ABG pCO2 POC ABG pO2 ABG pO2 191.0 H ABG HCO3 ABG O2 Saturation 99.2 H ABG Base Excess ABG Hemoglobin 9.0 L ABG Oxyhemoglobin ABG Sodium ABG Potassium ABG Chloride ABG Glucose Oxyhemoglobin Sodium Potassium Chloride Carbon Dioxide BUN Creatinine Glucose POC Glucose 155 H 115 H Lactic Acid Calcium Phosphorus Magnesium Total Bilirubin AST ALT Alkaline Phosphatase Total Protein Albumin Triglycerides Arterial Blood Glucose Arterial Blood Ionized Calcium Digoxin Crossmatch 01/06/21 01/06/21 01/06/21 04:45 05:56 07:03 WBC RBC 2.95 L Hgb 9.1 L Hct 26.8 L MCV MCHC RDW 16.8 H Plt Count Lymph % (Auto) [place] % (Auto) Eos % (Auto) Lymph # (Auto) [place] # (Auto) Eos # (Auto) Seg Neutrophils % Seg Neuts % (Manual) Lymphocytes % (Manual) Monocytes % (Manual) Seg Neutrophils # Seg Neutrophils # Man Lymphocytes # (Manual) Monocytes # (Manual) PT INR ABG pH POC ABG pCO2 POC ABG pO2 ABG pO2 ABG HCO3 ABG O2 Saturation ABG Base Excess ABG Hemoglobin ABG Oxyhemoglobin ABG Sodium ABG Potassium ABG Chloride ABG Glucose Oxyhemoglobin Sodium 135 L Potassium Chloride 95.9 L Carbon Dioxide BUN 82 H Creatinine 8.7 H Glucose 127 H POC Glucose 136 H Lactic Acid Calcium 8.3 L Phosphorus Magnesium Total Bilirubin AST ALT Alkaline Phosphatase Total Protein Albumin Triglycerides Arterial Blood Glucose Arterial Blood Ionized Calcium Digoxin Crossmatch 01/06/21 01/06/21 01/06/21 07:10 11:04 13:38 WBC RBC Hgb Hct MCV MCHC RDW Plt Count Lymph % (Auto) [place] % (Auto) Eos % (Auto) Lymph # (Auto) [place] # (Auto) Eos # (Auto) Seg Neutrophils % Seg Neuts % (Manual) Lymphocytes % (Manual) Monocytes % (Manual) Seg Neutrophils # Seg Neutrophils # Man Lymphocytes # (Manual) Monocytes # (Manual) PT INR ABG pH POC ABG pCO2 POC ABG pO2 ABG pO2 ABG HCO3 ABG O2 Saturation ABG Base Excess ABG Hemoglobin ABG Oxyhemoglobin ABG Sodium ABG Potassium ABG Chloride ABG Glucose Oxyhemoglobin Sodium Potassium Chloride Carbon Dioxide BUN Creatinine Glucose POC Glucose 178 H 155 H Lactic Acid Calcium Phosphorus Magnesium Total Bilirubin AST ALT Alkaline Phosphatase Total Protein Albumin Triglycerides Arterial Blood Glucose Arterial Blood Ionized Calcium Digoxin Crossmatch See Detail 01/06/21 01/06/21 01/07/21 17:35 22:21 03:07 WBC RBC Hgb Hct MCV MCHC RDW Plt Count Lymph % (Auto) [place] % (Auto) Eos % (Auto) Lymph # (Auto) [place] # (Auto) Eos # (Auto) Seg Neutrophils % Seg Neuts % (Manual) Lymphocytes % (Manual) Monocytes % (Manual) Seg Neutrophils # Seg Neutrophils # Man Lymphocytes # (Manual) Monocytes # (Manual) PT INR ABG pH POC ABG pCO2 POC ABG pO2 ABG pO2 ABG HCO3 ABG O2 Saturation ABG Base Excess ABG Hemoglobin 11.9 L ABG Oxyhemoglobin ABG Sodium 135.6 L ABG Potassium ABG Chloride ABG Glucose 181 H Oxyhemoglobin Sodium Potassium Chloride Carbon Dioxide BUN Creatinine Glucose POC Glucose 138 H 202 H Lactic Acid Calcium Phosphorus Magnesium Total Bilirubin AST ALT Alkaline Phosphatase Total Protein Albumin Triglycerides Arterial Blood Glucose 181 H Arterial Blood Ionized Calcium 4.3 L Digoxin Crossmatch 01/07/21 01/07/21 01/07/21 04:50 05:21 08:37 WBC 12.4 H RBC Hgb 11.1 L Hct 33.3 L D MCV MCHC RDW 17.0 H Plt Count Lymph % (Auto) 3.2 L [place] % (Auto) 9.4 H Eos % (Auto) Lymph # (Auto) 0.4 L [place] # (Auto) 1.2 H Eos # (Auto) Seg Neutrophils % 86.6 H Seg Neuts % (Manual) Lymphocytes % (Manual) Monocytes % (Manual) Seg Neutrophils # 10.7 H Seg Neutrophils # Man Lymphocytes # (Manual) Monocytes # (Manual) PT INR ABG pH POC ABG pCO2 POC ABG pO2 ABG pO2 ABG HCO3 ABG O2 Saturation ABG Base Excess ABG Hemoglobin ABG Oxyhemoglobin ABG Sodium ABG Potassium ABG Chloride ABG Glucose Oxyhemoglobin Sodium Potassium Chloride Carbon Dioxide BUN 60 H Creatinine 6.3 H Glucose 154 H POC Glucose 177 H Lactic Acid Calcium 8.3 L Phosphorus Magnesium Total Bilirubin AST ALT Alkaline Phosphatase Total Protein Albumin Triglycerides Arterial Blood Glucose Arterial Blood Ionized Calcium Digoxin Crossmatch 01/07/21 01/07/21 01/07/21 11:21 12:19 17:11 WBC RBC Hgb Hct MCV MCHC RDW Plt Count Lymph % (Auto) [place] % (Auto) Eos % (Auto) Lymph # (Auto) [place] # (Auto) Eos # (Auto) Seg Neutrophils % Seg Neuts % (Manual) Lymphocytes % (Manual) Monocytes % (Manual) Seg Neutrophils # Seg Neutrophils # Man Lymphocytes # (Manual) Monocytes # (Manual) PT INR ABG pH POC ABG pCO2 POC ABG pO2 ABG pO2 ABG HCO3 ABG O2 Saturation ABG Base Excess ABG Hemoglobin ABG Oxyhemoglobin ABG Sodium ABG Potassium ABG Chloride ABG Glucose Oxyhemoglobin Sodium Potassium Chloride Carbon Dioxide BUN Creatinine Glucose POC Glucose 144 H 137 H 119 H Lactic Acid Calcium Phosphorus Magnesium Total Bilirubin AST ALT Alkaline Phosphatase Total Protein Albumin Triglycerides Arterial Blood Glucose Arterial Blood Ionized Calcium Digoxin Crossmatch 01/07/21 01/07/21 01/08/21 17:14 23:39 04:34 WBC RBC Hgb Hct MCV MCHC RDW Plt Count Lymph % (Auto) [place] % (Auto) Eos % (Auto) Lymph # (Auto) [place] # (Auto) Eos # (Auto) Seg Neutrophils % Seg Neuts % (Manual) Lymphocytes % (Manual) Monocytes % (Manual) Seg Neutrophils # Seg Neutrophils # Man Lymphocytes # (Manual) Monocytes # (Manual) PT INR ABG pH 7.345 L POC ABG pCO2 POC ABG pO2 ABG pO2 67.4 L ABG HCO3 ABG O2 Saturation 94.3 L ABG Base Excess -3.9 L ABG Hemoglobin 8.9 L ABG Oxyhemoglobin ABG Sodium ABG Potassium ABG Chloride ABG Glucose Oxyhemoglobin 92.3 L Sodium Potassium Chloride Carbon Dioxide 20 L BUN 93 H Creatinine 8.8 H Glucose 120 H POC Glucose 129 H Lactic Acid Calcium Phosphorus Magnesium Total Bilirubin AST ALT Alkaline Phosphatase 133 H Total Protein 5.4 L Albumin 1.9 L Triglycerides Arterial Blood Glucose Arterial Blood Ionized Calcium Digoxin Crossmatch 01/08/21 01/08/21 01/08/21 05:26 11:38 17:19 WBC RBC Hgb Hct MCV MCHC RDW Plt Count Lymph % (Auto) [place] % (Auto) Eos % (Auto) Lymph # (Auto) [place] # (Auto) Eos # (Auto) Seg Neutrophils % Seg Neuts % (Manual) Lymphocytes % (Manual) Monocytes % (Manual) Seg Neutrophils # Seg Neutrophils # Man Lymphocytes # (Manual) Monocytes # (Manual) PT INR ABG pH POC ABG pCO2 POC ABG pO2 ABG pO2 ABG HCO3 ABG O2 Saturation ABG Base Excess ABG Hemoglobin ABG Oxyhemoglobin ABG Sodium ABG Potassium ABG Chloride ABG Glucose Oxyhemoglobin Sodium Potassium Chloride Carbon Dioxide BUN Creatinine Glucose POC Glucose 125 H 146 H 136 H Lactic Acid Calcium Phosphorus Magnesium Total Bilirubin AST ALT Alkaline Phosphatase Total Protein Albumin Triglycerides Arterial Blood Glucose Arterial Blood Ionized Calcium Digoxin Crossmatch 01/08/21 01/09/21 01/09/21 23:52 05:13 05:21 WBC RBC Hgb Hct MCV MCHC RDW Plt Count Lymph % (Auto) [place] % (Auto) Eos % (Auto) Lymph # (Auto) [place] # (Auto) Eos # (Auto) Seg Neutrophils % Seg Neuts % (Manual) Lymphocytes % (Manual) Monocytes % (Manual) Seg Neutrophils # Seg Neutrophils # Man Lymphocytes # (Manual) Monocytes # (Manual) PT INR ABG pH POC ABG pCO2 POC ABG pO2 ABG pO2 ABG HCO3 ABG O2 Saturation ABG Base Excess ABG Hemoglobin ABG Oxyhemoglobin ABG Sodium ABG Potassium ABG Chloride ABG Glucose Oxyhemoglobin Sodium Potassium Chloride Carbon Dioxide 16 L BUN 123 H Creatinine 10.8 H Glucose 145 H POC Glucose 143 H 144 H Lactic Acid Calcium Phosphorus 5.00 H D Magnesium 2.40 H Total Bilirubin AST ALT Alkaline Phosphatase Total Protein Albumin Triglycerides Arterial Blood Glucose Arterial Blood Ionized Calcium Digoxin Crossmatch 01/09/21 01/09/21 01/09/21 12:08 17:20 23:56 WBC RBC Hgb Hct MCV MCHC RDW Plt Count Lymph % (Auto) [place] % (Auto) Eos % (Auto) Lymph # (Auto) [place] # (Auto) Eos # (Auto) Seg Neutrophils % Seg Neuts % (Manual) Lymphocytes % (Manual) Monocytes % (Manual) Seg Neutrophils # Seg Neutrophils # Man Lymphocytes # (Manual) Monocytes # (Manual) PT INR ABG pH POC ABG pCO2 POC ABG pO2 ABG pO2 ABG HCO3 ABG O2 Saturation ABG Base Excess ABG Hemoglobin ABG Oxyhemoglobin ABG Sodium ABG Potassium ABG Chloride ABG Glucose Oxyhemoglobin Sodium Potassium Chloride Carbon Dioxide BUN Creatinine Glucose POC Glucose 153 H 160 H 158 H Lactic Acid Calcium Phosphorus Magnesium Total Bilirubin AST ALT Alkaline Phosphatase Total Protein Albumin Triglycerides Arterial Blood Glucose Arterial Blood Ionized Calcium Digoxin Crossmatch 01/10/21 01/10/21 01/10/21 04:52 05:44 07:41 WBC RBC Hgb Hct MCV MCHC RDW Plt Count Lymph % (Auto) [place] % (Auto) Eos % (Auto) Lymph # (Auto) [place] # (Auto) Eos # (Auto) Seg Neutrophils % Seg Neuts % (Manual) Lymphocytes % (Manual) Monocytes % (Manual) Seg Neutrophils # Seg Neutrophils # Man Lymphocytes # (Manual) Monocytes # (Manual) PT INR ABG pH POC ABG pCO2 POC ABG pO2 ABG pO2 ABG HCO3 ABG O2 Saturation ABG Base Excess ABG Hemoglobin ABG Oxyhemoglobin ABG Sodium ABG Potassium ABG Chloride ABG Glucose Oxyhemoglobin Sodium 135 L Potassium 3.5 L D Chloride 95.0 L Carbon Dioxide 21 L BUN 93 H Creatinine 8.3 H Glucose 127 H POC Glucose 135 H 157 H Lactic Acid Calcium Phosphorus Magnesium Total Bilirubin AST ALT Alkaline Phosphatase Total Protein Albumin Triglycerides Arterial Blood Glucose Arterial Blood Ionized Calcium Digoxin Crossmatch 01/10/21 01/10/21 01/10/21 09:26 12:03 17:44 WBC 18.2 H RBC 3.14 L Hgb 9.7 L Hct 28.2 L MCV MCHC RDW 16.5 H Plt Count Lymph % (Auto) [place] % (Auto) Eos % (Auto) Lymph # (Auto) [place] # (Auto) Eos # (Auto) Seg Neutrophils % Seg Neuts % (Manual) 95.0 H Lymphocytes % (Manual) 3.0 L Monocytes % (Manual) Seg Neutrophils # Seg Neutrophils # Man 17.3 H Lymphocytes # (Manual) 0.5 L Monocytes # (Manual) PT INR ABG pH POC ABG pCO2 POC ABG pO2 ABG pO2 ABG HCO3 ABG O2 Saturation ABG Base Excess ABG Hemoglobin ABG Oxyhemoglobin ABG Sodium ABG Potassium ABG Chloride ABG Glucose Oxyhemoglobin Sodium Potassium Chloride Carbon Dioxide BUN Creatinine Glucose POC Glucose 163 H 171 H Lactic Acid Calcium Phosphorus Magnesium Total Bilirubin AST ALT Alkaline Phosphatase Total Protein Albumin Triglycerides Arterial Blood Glucose Arterial Blood Ionized Calcium Digoxin Crossmatch 01/10/21 01/11/21 01/11/21 23:50 05:18 05:18 WBC RBC Hgb Hct MCV MCHC RDW Plt Count Lymph % (Auto) [place] % (Auto) Eos % (Auto) Lymph # (Auto) [place] # (Auto) Eos # (Auto) Seg Neutrophils % Seg Neuts % (Manual) Lymphocytes % (Manual) Monocytes % (Manual) Seg Neutrophils # Seg Neutrophils # Man Lymphocytes # (Manual) Monocytes # (Manual) PT INR ABG pH POC ABG pCO2 POC ABG pO2 ABG pO2 ABG HCO3 ABG O2 Saturation ABG Base Excess ABG Hemoglobin ABG Oxyhemoglobin ABG Sodium ABG Potassium ABG Chloride ABG Glucose Oxyhemoglobin Sodium 136 L Potassium Chloride 94.6 L Carbon Dioxide 19 L BUN 145 H Creatinine 10.6 H Glucose 152 H POC Glucose 151 H Lactic Acid Calcium Phosphorus 6.00 H D Magnesium Total Bilirubin AST ALT Alkaline Phosphatase Total Protein Albumin Triglycerides Arterial Blood Glucose Arterial Blood Ionized Calcium Digoxin 0.8 L Crossmatch 01/11/21 01/11/21 01/11/21 05:18 05:19 11:28 WBC 17.4 H RBC 3.34 L Hgb 10.2 L Hct 29.7 L MCV MCHC RDW 15.9 H Plt Count Lymph % (Auto) [place] % (Auto) Eos % (Auto) Lymph # (Auto) [place] # (Auto) Eos # (Auto) Seg Neutrophils % Seg Neuts % (Manual) Lymphocytes % (Manual) Monocytes % (Manual) Seg Neutrophils # Seg Neutrophils # Man Lymphocytes # (Manual) Monocytes # (Manual) PT INR ABG pH POC ABG pCO2 POC ABG pO2 ABG pO2 ABG HCO3 ABG O2 Saturation ABG Base Excess ABG Hemoglobin ABG Oxyhemoglobin ABG Sodium ABG Potassium ABG Chloride ABG Glucose Oxyhemoglobin Sodium Potassium Chloride Carbon Dioxide BUN Creatinine Glucose POC Glucose 149 H 178 H Lactic Acid Calcium Phosphorus Magnesium Total Bilirubin AST ALT Alkaline Phosphatase Total Protein Albumin Triglycerides Arterial Blood Glucose Arterial Blood Ionized Calcium Digoxin Crossmatch 01/11/21 01/11/21 01/12/21 17:31 23:14 05:18 WBC RBC Hgb Hct MCV MCHC RDW Plt Count Lymph % (Auto) [place] % (Auto) Eos % (Auto) Lymph # (Auto) [place] # (Auto) Eos # (Auto) Seg Neutrophils % Seg Neuts % (Manual) Lymphocytes % (Manual) Monocytes % (Manual) Seg Neutrophils # Seg Neutrophils # Man Lymphocytes # (Manual) Monocytes # (Manual) PT INR ABG pH POC ABG pCO2 POC ABG pO2 ABG pO2 ABG HCO3 ABG O2 Saturation ABG Base Excess ABG Hemoglobin ABG Oxyhemoglobin ABG Sodium ABG Potassium ABG Chloride ABG Glucose Oxyhemoglobin Sodium Potassium Chloride Carbon Dioxide BUN Creatinine Glucose POC Glucose 158 H 145 H 148 H Lactic Acid Calcium Phosphorus Magnesium Total Bilirubin AST ALT Alkaline Phosphatase Total Protein Albumin Triglycerides Arterial Blood Glucose Arterial Blood Ionized Calcium Digoxin Crossmatch 01/12/21 01/12/21 01/12/21 06:50 10:45 13:34 WBC RBC Hgb Hct MCV MCHC RDW Plt Count Lymph % (Auto) [place] % (Auto) Eos % (Auto) Lymph # (Auto) [place] # (Auto) Eos # (Auto) Seg Neutrophils % Seg Neuts % (Manual) Lymphocytes % (Manual) Monocytes % (Manual) Seg Neutrophils # Seg Neutrophils # Man Lymphocytes # (Manual) Monocytes # (Manual) PT INR ABG pH POC ABG pCO2 POC ABG pO2 ABG pO2 ABG HCO3 ABG O2 Saturation ABG Base Excess ABG Hemoglobin ABG Oxyhemoglobin ABG Sodium ABG Potassium ABG Chloride ABG Glucose Oxyhemoglobin Sodium Potassium 2.9 L* D Chloride 94.8 L Carbon Dioxide BUN 102 H Creatinine 8.3 H Glucose 139 H POC Glucose 151 H 134 H Lactic Acid Calcium 8.1 L Phosphorus 5.00 H Magnesium Total Bilirubin AST ALT Alkaline Phosphatase Total Protein Albumin Triglycerides Arterial Blood Glucose Arterial Blood Ionized Calcium Digoxin Crossmatch 01/12/21 01/12/21 01/13/21 16:59 23:06 03:45 WBC RBC Hgb Hct MCV MCHC RDW Plt Count Lymph % (Auto) [place] % (Auto) Eos % (Auto) Lymph # (Auto) [place] # (Auto) Eos # (Auto) Seg Neutrophils % Seg Neuts % (Manual) Lymphocytes % (Manual) Monocytes % (Manual) Seg Neutrophils # Seg Neutrophils # Man Lymphocytes # (Manual) Monocytes # (Manual) PT INR ABG pH POC ABG pCO2 POC ABG pO2 ABG pO2 ABG HCO3 ABG O2 Saturation ABG Base Excess ABG Hemoglobin ABG Oxyhemoglobin ABG Sodium ABG Potassium ABG Chloride ABG Glucose Oxyhemoglobin Sodium 136 L Potassium 3.4 L Chloride 92.6 L Carbon Dioxide BUN 134 H Creatinine 10.4 H Glucose 126 H POC Glucose 108 H 135 H Lactic Acid Calcium 8.3 L Phosphorus 5.60 H Magnesium 1.50 L Total Bilirubin AST ALT Alkaline Phosphatase Total Protein Albumin Triglycerides Arterial Blood Glucose Arterial Blood Ionized Calcium Digoxin Crossmatch 01/13/21 01/13/21 01/13/21 03:45 05:55 11:59 WBC 17.6 H RBC 3.33 L Hgb 10.2 L Hct 29.5 L MCV MCHC 35 H RDW 15.5 H Plt Count Lymph % (Auto) 4.4 L [place] % (Auto) 10.3 H Eos % (Auto) Lymph # (Auto) 0.8 L [place] # (Auto) 1.8 H Eos # (Auto) Seg Neutrophils % 84.2 H Seg Neuts % (Manual) Lymphocytes % (Manual) Monocytes % (Manual) Seg Neutrophils # 14.8 H Seg Neutrophils # Man Lymphocytes # (Manual) Monocytes # (Manual) PT INR ABG pH POC ABG pCO2 POC ABG pO2 ABG pO2 ABG HCO3 ABG O2 Saturation ABG Base Excess ABG Hemoglobin ABG Oxyhemoglobin ABG Sodium ABG Potassium ABG Chloride ABG Glucose Oxyhemoglobin Sodium Potassium Chloride Carbon Dioxide BUN Creatinine Glucose POC Glucose 134 H 141 H Lactic Acid Calcium Phosphorus Magnesium Total Bilirubin AST ALT Alkaline Phosphatase Total Protein Albumin Triglycerides Arterial Blood Glucose Arterial Blood Ionized Calcium Digoxin Crossmatch 01/13/21 01/14/21 01/14/21 23:09 05:39 05:57 WBC RBC Hgb Hct MCV MCHC RDW Plt Count Lymph % (Auto) [place] % (Auto) Eos % (Auto) Lymph # (Auto) [place] # (Auto) Eos # (Auto) Seg Neutrophils % Seg Neuts % (Manual) Lymphocytes % (Manual) Monocytes % (Manual) Seg Neutrophils # Seg Neutrophils # Man Lymphocytes # (Manual) Monocytes # (Manual) PT INR ABG pH POC ABG pCO2 POC ABG pO2 ABG pO2 ABG HCO3 ABG O2 Saturation ABG Base Excess ABG Hemoglobin ABG Oxyhemoglobin ABG Sodium ABG Potassium ABG Chloride ABG Glucose Oxyhemoglobin Sodium Potassium Chloride 97.6 L Carbon Dioxide BUN 81 H Creatinine 7.6 H Glucose 193 H POC Glucose 106 H 190 H Lactic Acid Calcium 8.2 L Phosphorus 4.60 H Magnesium Total Bilirubin AST ALT Alkaline Phosphatase Total Protein Albumin Triglycerides Arterial Blood Glucose Arterial Blood Ionized Calcium Digoxin Crossmatch 01/14/21 01/14/21 01/14/21 10:00 16:56 16:59 WBC 17.0 H RBC 3.10 L Hgb 9.6 L Hct 27.4 L MCV MCHC 35 H RDW 15.6 H Plt Count Lymph % (Auto) [place] % (Auto) Eos % (Auto) Lymph # (Auto) [place] # (Auto) Eos # (Auto) Seg Neutrophils % Seg Neuts % (Manual) Lymphocytes % (Manual) Monocytes % (Manual) Seg Neutrophils # Seg Neutrophils # Man Lymphocytes # (Manual) Monocytes # (Manual) PT INR ABG pH POC ABG pCO2 POC ABG pO2 ABG pO2 ABG HCO3 ABG O2 Saturation ABG Base Excess ABG Hemoglobin ABG Oxyhemoglobin ABG Sodium ABG Potassium ABG Chloride ABG Glucose Oxyhemoglobin Sodium Potassium Chloride Carbon Dioxide BUN Creatinine Glucose POC Glucose 37 L 34 L Lactic Acid Calcium Phosphorus Magnesium Total Bilirubin AST ALT Alkaline Phosphatase Total Protein Albumin Triglycerides Arterial Blood Glucose Arterial Blood Ionized Calcium Digoxin Crossmatch 01/14/21 01/14/21 01/14/21 17:02 18:34 23:17 WBC RBC Hgb Hct MCV MCHC RDW Plt Count Lymph % (Auto) [place] % (Auto) Eos % (Auto) Lymph # (Auto) [place] # (Auto) Eos # (Auto) Seg Neutrophils % Seg Neuts % (Manual) Lymphocytes % (Manual) Monocytes % (Manual) Seg Neutrophils # Seg Neutrophils # Man Lymphocytes # (Manual) Monocytes # (Manual) PT INR ABG pH POC ABG pCO2 POC ABG pO2 ABG pO2 ABG HCO3 ABG O2 Saturation ABG Base Excess ABG Hemoglobin ABG Oxyhemoglobin ABG Sodium ABG Potassium ABG Chloride ABG Glucose Oxyhemoglobin Sodium Potassium Chloride Carbon Dioxide BUN Creatinine Glucose POC Glucose 35 L 143 H 53 L Lactic Acid Calcium Phosphorus Magnesium Total Bilirubin AST ALT Alkaline Phosphatase Total Protein Albumin Triglycerides Arterial Blood Glucose Arterial Blood Ionized Calcium Digoxin Crossmatch 01/15/21 01/15/21 01/15/21 00:34 04:00 04:00 WBC 15.9 H RBC 3.02 L Hgb 9.3 L Hct 27.3 L MCV MCHC RDW 15.6 H Plt Count Lymph % (Auto) [place] % (Auto) Eos % (Auto) Lymph # (Auto) [place] # (Auto) Eos # (Auto) Seg Neutrophils % Seg Neuts % (Manual) Lymphocytes % (Manual) Monocytes % (Manual) Seg Neutrophils # Seg Neutrophils # Man Lymphocytes # (Manual) Monocytes # (Manual) PT INR ABG pH POC ABG pCO2 POC ABG pO2 ABG pO2 ABG HCO3 ABG O2 Saturation ABG Base Excess ABG Hemoglobin ABG Oxyhemoglobin ABG Sodium ABG Potassium ABG Chloride ABG Glucose Oxyhemoglobin Sodium 136 L Potassium Chloride 94.3 L Carbon Dioxide BUN 117 H Creatinine 9.9 H Glucose 217 H POC Glucose 181 H Lactic Acid Calcium 8.3 L Phosphorus Magnesium Total Bilirubin AST ALT Alkaline Phosphatase Total Protein Albumin Triglycerides Arterial Blood Glucose Arterial Blood Ionized Calcium Digoxin Crossmatch 01/15/21 01/15/21 01/15/21 05:29 11:51 23:13 WBC RBC Hgb Hct MCV MCHC RDW Plt Count Lymph % (Auto) [place] % (Auto) Eos % (Auto) Lymph # (Auto) [place] # (Auto) Eos # (Auto) Seg Neutrophils % Seg Neuts % (Manual) Lymphocytes % (Manual) Monocytes % (Manual) Seg Neutrophils # Seg Neutrophils # Man Lymphocytes # (Manual) Monocytes # (Manual) PT INR ABG pH POC ABG pCO2 POC ABG pO2 ABG pO2 ABG HCO3 ABG O2 Saturation ABG Base Excess ABG Hemoglobin ABG Oxyhemoglobin ABG Sodium ABG Potassium ABG Chloride ABG Glucose Oxyhemoglobin Sodium Potassium Chloride Carbon Dioxide BUN Creatinine Glucose POC Glucose 221 H 62 L 154 H Lactic Acid Calcium Phosphorus Magnesium Total Bilirubin AST ALT Alkaline Phosphatase Total Protein Albumin Triglycerides Arterial Blood Glucose Arterial Blood Ionized Calcium Digoxin Crossmatch 01/16/21 01/16/21 01/16/21 05:04 06:44 06:44 WBC 14.8 H RBC 2.76 L Hgb 8.2 L Hct 24.8 L MCV MCHC RDW 15.6 H Plt Count Lymph % (Auto) [place] % (Auto) Eos % (Auto) Lymph # (Auto) [place] # (Auto) Eos # (Auto) Seg Neutrophils % Seg Neuts % (Manual) Lymphocytes % (Manual) Monocytes % (Manual) Seg Neutrophils # Seg Neutrophils # Man Lymphocytes # (Manual) Monocytes # (Manual) PT INR ABG pH POC ABG pCO2 POC ABG pO2 ABG pO2 ABG HCO3 ABG O2 Saturation ABG Base Excess ABG Hemoglobin ABG Oxyhemoglobin ABG Sodium ABG Potassium ABG Chloride ABG Glucose Oxyhemoglobin Sodium 133 L Potassium Chloride 92.3 L Carbon Dioxide 20 L BUN 160 H Creatinine 12.1 H Glucose 177 H POC Glucose 168 H Lactic Acid Calcium 8.1 L Phosphorus 5.50 H Magnesium 2.50 H Total Bilirubin AST ALT Alkaline Phosphatase Total Protein Albumin Triglycerides Arterial Blood Glucose Arterial Blood Ionized Calcium Digoxin Crossmatch 01/16/21 01/17/21 01/17/21 23:20 05:14 05:14 WBC 12.7 H RBC 2.75 L Hgb 8.5 L Hct 24.6 L MCV MCHC 35 H RDW 15.4 H Plt Count Lymph % (Auto) [place] % (Auto) Eos % (Auto) Lymph # (Auto) [place] # (Auto) Eos # (Auto) Seg Neutrophils % Seg Neuts % (Manual) Lymphocytes % (Manual) Monocytes % (Manual) Seg Neutrophils # Seg Neutrophils # Man Lymphocytes # (Manual) Monocytes # (Manual) PT INR ABG pH POC ABG pCO2 POC ABG pO2 ABG pO2 ABG HCO3 ABG O2 Saturation ABG Base Excess ABG Hemoglobin ABG Oxyhemoglobin ABG Sodium ABG Potassium ABG Chloride ABG Glucose Oxyhemoglobin Sodium Potassium Chloride 97.9 L Carbon Dioxide BUN 84 H Creatinine 7.8 H Glucose 176 H POC Glucose 153 H Lactic Acid Calcium 8.0 L Phosphorus Magnesium Total Bilirubin AST ALT Alkaline Phosphatase Total Protein Albumin Triglycerides Arterial Blood Glucose Arterial Blood Ionized Calcium Digoxin Crossmatch 01/17/21 01/17/21 01/18/21 05:33 11:58 00:07 WBC RBC Hgb Hct MCV MCHC RDW Plt Count Lymph % (Auto) [place] % (Auto) Eos % (Auto) Lymph # (Auto) [place] # (Auto) Eos # (Auto) Seg Neutrophils % Seg Neuts % (Manual) Lymphocytes % (Manual) Monocytes % (Manual) Seg Neutrophils # Seg Neutrophils # Man Lymphocytes # (Manual) Monocytes # (Manual) PT INR ABG pH POC ABG pCO2 POC ABG pO2 ABG pO2 ABG HCO3 ABG O2 Saturation ABG Base Excess ABG Hemoglobin ABG Oxyhemoglobin ABG Sodium ABG Potassium ABG Chloride ABG Glucose Oxyhemoglobin Sodium Potassium Chloride Carbon Dioxide BUN Creatinine Glucose POC Glucose 162 H 64 L 146 H Lactic Acid Calcium Phosphorus Magnesium Total Bilirubin AST ALT Alkaline Phosphatase Total Protein Albumin Triglycerides Arterial Blood Glucose Arterial Blood Ionized Calcium Digoxin Crossmatch 01/18/21 01/18/21 01/18/21 04:19 04:19 06:15 WBC 15.6 H RBC 3.00 L Hgb 9.2 L Hct 26.8 L MCV MCHC 35 H RDW 15.6 H Plt Count Lymph % (Auto) [place] % (Auto) Eos % (Auto) Lymph # (Auto) [place] # (Auto) Eos # (Auto) Seg Neutrophils % Seg Neuts % (Manual) Lymphocytes % (Manual) Monocytes % (Manual) Seg Neutrophils # Seg Neutrophils # Man Lymphocytes # (Manual) Monocytes # (Manual) PT INR ABG pH POC ABG pCO2 POC ABG pO2 ABG pO2 ABG HCO3 ABG O2 Saturation ABG Base Excess ABG Hemoglobin ABG Oxyhemoglobin ABG Sodium ABG Potassium ABG Chloride ABG Glucose Oxyhemoglobin Sodium Potassium Chloride 96.2 L Carbon Dioxide BUN 117 H Creatinine 10.0 H Glucose 165 H POC Glucose 189 H Lactic Acid Calcium Phosphorus 4.70 H D Magnesium Total Bilirubin AST ALT Alkaline Phosphatase Total Protein Albumin Triglycerides Arterial Blood Glucose Arterial Blood Ionized Calcium Digoxin Crossmatch 01/18/21 01/18/21 01/18/21 11:53 13:44 15:08 WBC RBC Hgb Hct MCV MCHC RDW Plt Count Lymph % (Auto) [place] % (Auto) Eos % (Auto) Lymph # (Auto) [place] # (Auto) Eos # (Auto) Seg Neutrophils % Seg Neuts % (Manual) Lymphocytes % (Manual) Monocytes % (Manual) Seg Neutrophils # Seg Neutrophils # Man Lymphocytes # (Manual) Monocytes # (Manual) PT INR ABG pH POC ABG pCO2 POC ABG pO2 ABG pO2 ABG HCO3 ABG O2 Saturation ABG Base Excess ABG Hemoglobin ABG Oxyhemoglobin ABG Sodium ABG Potassium ABG Chloride ABG Glucose Oxyhemoglobin Sodium Potassium Chloride Carbon Dioxide BUN Creatinine Glucose POC Glucose 69 L 50 L 56 L Lactic Acid Calcium Phosphorus Magnesium Total Bilirubin AST ALT Alkaline Phosphatase Total Protein Albumin Triglycerides Arterial Blood Glucose Arterial Blood Ionized Calcium Digoxin Crossmatch 01/18/21 01/19/21 01/19/21 17:50 04:55 08:56 WBC 12.7 H RBC 2.89 L Hgb 8.7 L Hct 25.6 L MCV MCHC RDW 15.5 H Plt Count Lymph % (Auto) [place] % (Auto) Eos % (Auto) Lymph # (Auto) [place] # (Auto) Eos # (Auto) Seg Neutrophils % Seg Neuts % (Manual) Lymphocytes % (Manual) Monocytes % (Manual) Seg Neutrophils # Seg Neutrophils # Man Lymphocytes # (Manual) Monocytes # (Manual) PT INR ABG pH POC ABG pCO2 POC ABG pO2 ABG pO2 ABG HCO3 ABG O2 Saturation ABG Base Excess ABG Hemoglobin ABG Oxyhemoglobin ABG Sodium ABG Potassium ABG Chloride ABG Glucose Oxyhemoglobin Sodium Potassium Chloride Carbon Dioxide BUN Creatinine Glucose POC Glucose 137 H 120 H Lactic Acid Calcium Phosphorus Magnesium Total Bilirubin AST ALT Alkaline Phosphatase Total Protein Albumin Triglycerides Arterial Blood Glucose Arterial Blood Ionized Calcium Digoxin Crossmatch 01/19/21 01/19/21 01/19/21 08:56 11:33 17:32 WBC RBC Hgb Hct MCV MCHC RDW Plt Count Lymph % (Auto) [place] % (Auto) Eos % (Auto) Lymph # (Auto) [place] # (Auto) Eos # (Auto) Seg Neutrophils % Seg Neuts % (Manual) Lymphocytes % (Manual) Monocytes % (Manual) Seg Neutrophils # Seg Neutrophils # Man Lymphocytes # (Manual) Monocytes # (Manual) PT INR ABG pH POC ABG pCO2 POC ABG pO2 ABG pO2 ABG HCO3 ABG O2 Saturation ABG Base Excess ABG Hemoglobin ABG Oxyhemoglobin ABG Sodium ABG Potassium ABG Chloride ABG Glucose Oxyhemoglobin Sodium Potassium Chloride Carbon Dioxide BUN 66 H Creatinine 7.7 H Glucose 119 H POC Glucose 160 H 125 H Lactic Acid Calcium 8.3 L Phosphorus Magnesium Total Bilirubin AST ALT Alkaline Phosphatase Total Protein Albumin Triglycerides Arterial Blood Glucose Arterial Blood Ionized Calcium Digoxin Crossmatch 01/19/21 01/20/21 01/20/21 23:30 03:35 03:35 WBC 12.0 H RBC 2.62 L Hgb 8.3 L Hct 23.2 L MCV MCHC 36 H RDW Plt Count Lymph % (Auto) [place] % (Auto) Eos % (Auto) Lymph # (Auto) [place] # (Auto) Eos # (Auto) Seg Neutrophils % Seg Neuts % (Manual) Lymphocytes % (Manual) Monocytes % (Manual) Seg Neutrophils # Seg Neutrophils # Man Lymphocytes # (Manual) Monocytes # (Manual) PT INR ABG pH POC ABG pCO2 POC ABG pO2 ABG pO2 ABG HCO3 ABG O2 Saturation ABG Base Excess ABG Hemoglobin ABG Oxyhemoglobin ABG Sodium ABG Potassium ABG Chloride ABG Glucose Oxyhemoglobin Sodium Potassium Chloride Carbon Dioxide BUN 46 H Creatinine 5.9 H Glucose 128 H POC Glucose 127 H Lactic Acid Calcium Phosphorus Magnesium Total Bilirubin AST ALT Alkaline Phosphatase Total Protein Albumin Triglycerides Arterial Blood Glucose Arterial Blood Ionized Calcium Digoxin Crossmatch 01/20/21 01/20/21 01/20/21 06:19 11:55 18:00 WBC RBC Hgb Hct MCV MCHC RDW Plt Count Lymph % (Auto) [place] % (Auto) Eos % (Auto) Lymph # (Auto) [place] # (Auto) Eos # (Auto) Seg Neutrophils % Seg Neuts % (Manual) Lymphocytes % (Manual) Monocytes % (Manual) Seg Neutrophils # Seg Neutrophils # Man Lymphocytes # (Manual) Monocytes # (Manual) PT INR ABG pH POC ABG pCO2 POC ABG pO2 ABG pO2 ABG HCO3 ABG O2 Saturation ABG Base Excess ABG Hemoglobin ABG Oxyhemoglobin ABG Sodium ABG Potassium ABG Chloride ABG Glucose Oxyhemoglobin Sodium Potassium Chloride Carbon Dioxide BUN Creatinine Glucose POC Glucose 119 H 128 H 115 H Lactic Acid Calcium Phosphorus Magnesium Total Bilirubin AST ALT Alkaline Phosphatase Total Protein Albumin Triglycerides Arterial Blood Glucose Arterial Blood Ionized Calcium Digoxin Crossmatch 01/20/21 01/21/21 01/21/21 23:26 04:39 05:27 WBC RBC Hgb Hct MCV MCHC RDW Plt Count Lymph % (Auto) [place] % (Auto) Eos % (Auto) Lymph # (Auto) [place] # (Auto) Eos # (Auto) Seg Neutrophils % Seg Neuts % (Manual) Lymphocytes % (Manual) Monocytes % (Manual) Seg Neutrophils # Seg Neutrophils # Man Lymphocytes # (Manual) Monocytes # (Manual) PT INR ABG pH POC ABG pCO2 POC ABG pO2 ABG pO2 ABG HCO3 ABG O2 Saturation ABG Base Excess ABG Hemoglobin ABG Oxyhemoglobin ABG Sodium ABG Potassium ABG Chloride ABG Glucose Oxyhemoglobin Sodium Potassium Chloride Carbon Dioxide BUN 37 H Creatinine 5.3 H Glucose 109 H POC Glucose 108 H 107 H Lactic Acid Calcium Phosphorus 2.10 L Magnesium 1.50 L Total Bilirubin AST ALT Alkaline Phosphatase 143 H Total Protein 6.1 L Albumin 3.0 L Triglycerides Arterial Blood Glucose Arterial Blood Ionized Calcium Digoxin Crossmatch 01/21/21 01/21/21 01/22/21 11:35 17:53 00:20 WBC RBC Hgb Hct MCV MCHC RDW Plt Count Lymph % (Auto) [place] % (Auto) Eos % (Auto) Lymph # (Auto) [place] # (Auto) Eos # (Auto) Seg Neutrophils % Seg Neuts % (Manual) Lymphocytes % (Manual) Monocytes % (Manual) Seg Neutrophils # Seg Neutrophils # Man Lymphocytes # (Manual) Monocytes # (Manual) PT INR ABG pH POC ABG pCO2 POC ABG pO2 ABG pO2 ABG HCO3 ABG O2 Saturation ABG Base Excess ABG Hemoglobin ABG Oxyhemoglobin ABG Sodium ABG Potassium ABG Chloride ABG Glucose Oxyhemoglobin Sodium Potassium Chloride Carbon Dioxide BUN Creatinine Glucose POC Glucose 133 H 124 H 122 H Lactic Acid Calcium Phosphorus Magnesium Total Bilirubin AST ALT Alkaline Phosphatase Total Protein Albumin Triglycerides Arterial Blood Glucose Arterial Blood Ionized Calcium Digoxin Crossmatch 01/22/21 01/22/21 01/22/21 04:00 06:09 11:36 WBC RBC Hgb Hct MCV MCHC RDW Plt Count Lymph % (Auto) [place] % (Auto) Eos % (Auto) Lymph # (Auto) [place] # (Auto) Eos # (Auto) Seg Neutrophils % Seg Neuts % (Manual) Lymphocytes % (Manual) Monocytes % (Manual) Seg Neutrophils # Seg Neutrophils # Man Lymphocytes # (Manual) Monocytes # (Manual) PT INR ABG pH POC ABG pCO2 POC ABG pO2 ABG pO2 ABG HCO3 ABG O2 Saturation ABG Base Excess ABG Hemoglobin ABG Oxyhemoglobin ABG Sodium ABG Potassium ABG Chloride ABG Glucose Oxyhemoglobin Sodium Potassium Chloride Carbon Dioxide BUN 65 H Creatinine 8.2 H D Glucose 111 H POC Glucose 122 H 132 H Lactic Acid Calcium Phosphorus Magnesium Total Bilirubin AST ALT Alkaline Phosphatase Total Protein Albumin Triglycerides Arterial Blood Glucose Arterial Blood Ionized Calcium Digoxin Crossmatch 01/22/21 01/22/21 01/23/21 17:17 23:18 05:29 WBC RBC Hgb Hct MCV MCHC RDW Plt Count Lymph % (Auto) [place] % (Auto) Eos % (Auto) Lymph # (Auto) [place] # (Auto) Eos # (Auto) Seg Neutrophils % Seg Neuts % (Manual) Lymphocytes % (Manual) Monocytes % (Manual) Seg Neutrophils # Seg Neutrophils # Man Lymphocytes # (Manual) Monocytes # (Manual) PT INR ABG pH POC ABG pCO2 POC ABG pO2 ABG pO2 ABG HCO3 ABG O2 Saturation ABG Base Excess ABG Hemoglobin ABG Oxyhemoglobin ABG Sodium ABG Potassium ABG Chloride ABG Glucose Oxyhemoglobin Sodium Potassium Chloride Carbon Dioxide BUN Creatinine Glucose POC Glucose 135 H 128 H 129 H Lactic Acid Calcium Phosphorus Magnesium Total Bilirubin AST ALT Alkaline Phosphatase Total Protein Albumin Triglycerides Arterial Blood Glucose Arterial Blood Ionized Calcium Digoxin Crossmatch 01/23/21 01/23/21 01/23/21 05:45 11:28 16:39 WBC RBC Hgb Hct MCV MCHC RDW Plt Count Lymph % (Auto) [place] % (Auto) Eos % (Auto) Lymph # (Auto) [place] # (Auto) Eos # (Auto) Seg Neutrophils % Seg Neuts % (Manual) Lymphocytes % (Manual) Monocytes % (Manual) Seg Neutrophils # Seg Neutrophils # Man Lymphocytes # (Manual) Monocytes # (Manual) PT INR ABG pH POC ABG pCO2 POC ABG pO2 ABG pO2 ABG HCO3 ABG O2 Saturation ABG Base Excess ABG Hemoglobin ABG Oxyhemoglobin ABG Sodium ABG Potassium ABG Chloride ABG Glucose Oxyhemoglobin Sodium Potassium Chloride Carbon Dioxide BUN 96 H Creatinine 10.8 H Glucose 124 H POC Glucose 160 H 116 H Lactic Acid Calcium Phosphorus Magnesium 2.50 H Total Bilirubin AST ALT Alkaline Phosphatase Total Protein Albumin Triglycerides Arterial Blood Glucose Arterial Blood Ionized Calcium Digoxin Crossmatch 01/24/21 01/24/21 01/24/21 00:02 04:45 05:01 WBC RBC Hgb Hct MCV MCHC RDW Plt Count Lymph % (Auto) [place] % (Auto) Eos % (Auto) Lymph # (Auto) [place] # (Auto) Eos # (Auto) Seg Neutrophils % Seg Neuts % (Manual) Lymphocytes % (Manual) Monocytes % (Manual) Seg Neutrophils # Seg Neutrophils # Man Lymphocytes # (Manual) Monocytes # (Manual) PT INR ABG pH POC ABG pCO2 POC ABG pO2 ABG pO2 ABG HCO3 ABG O2 Saturation ABG Base Excess ABG Hemoglobin ABG Oxyhemoglobin ABG Sodium ABG Potassium ABG Chloride ABG Glucose Oxyhemoglobin Sodium Potassium 3.5 L Chloride Carbon Dioxide BUN 56 H Creatinine 7.7 H Glucose 102 H POC Glucose 120 H 108 H Lactic Acid Calcium Phosphorus Magnesium Total Bilirubin AST ALT Alkaline Phosphatase Total Protein Albumin Triglycerides Arterial Blood Glucose Arterial Blood Ionized Calcium Digoxin Crossmatch 01/24/21 01/24/21 01/24/21 12:03 17:07 23:55 WBC RBC Hgb Hct MCV MCHC RDW Plt Count Lymph % (Auto) [place] % (Auto) Eos % (Auto) Lymph # (Auto) [place] # (Auto) Eos # (Auto) Seg Neutrophils % Seg Neuts % (Manual) Lymphocytes % (Manual) Monocytes % (Manual) Seg Neutrophils # Seg Neutrophils # Man Lymphocytes # (Manual) Monocytes # (Manual) PT INR ABG pH POC ABG pCO2 POC ABG pO2 ABG pO2 ABG HCO3 ABG O2 Saturation ABG Base Excess ABG Hemoglobin ABG Oxyhemoglobin ABG Sodium ABG Potassium ABG Chloride ABG Glucose Oxyhemoglobin Sodium Potassium Chloride Carbon Dioxide BUN Creatinine Glucose POC Glucose 136 H 122 H 112 H Lactic Acid Calcium Phosphorus Magnesium Total Bilirubin AST ALT Alkaline Phosphatase Total Protein Albumin Triglycerides Arterial Blood Glucose Arterial Blood Ionized Calcium Digoxin Crossmatch 01/25/21 01/25/21 01/25/21 05:15 06:00 07:47 WBC RBC Hgb Hct MCV MCHC RDW Plt Count Lymph % (Auto) [place] % (Auto) Eos % (Auto) Lymph # (Auto) [place] # (Auto) Eos # (Auto) Seg Neutrophils % Seg Neuts % (Manual) Lymphocytes % (Manual) Monocytes % (Manual) Seg Neutrophils # Seg Neutrophils # Man Lymphocytes # (Manual) Monocytes # (Manual) PT INR ABG pH POC ABG pCO2 POC ABG pO2 ABG pO2 ABG HCO3 ABG O2 Saturation ABG Base Excess ABG Hemoglobin ABG Oxyhemoglobin ABG Sodium ABG Potassium ABG Chloride ABG Glucose Oxyhemoglobin Sodium 116 L* D Potassium Chloride 79.1 L Carbon Dioxide 17 L D BUN 72 H Creatinine 7.4 H Glucose 2242 H* POC Glucose 117 H 138 H Lactic Acid Calcium 6.7 L D Phosphorus Magnesium Total Bilirubin AST ALT Alkaline Phosphatase Total Protein Albumin Triglycerides Arterial Blood Glucose Arterial Blood Ionized Calcium Digoxin Crossmatch 01/25/21 01/25/21 01/25/21 08:35 11:49 18:42 WBC RBC Hgb Hct MCV MCHC RDW Plt Count Lymph % (Auto) [place] % (Auto) Eos % (Auto) Lymph # (Auto) [place] # (Auto) Eos # (Auto) Seg Neutrophils % Seg Neuts % (Manual) Lymphocytes % (Manual) Monocytes % (Manual) Seg Neutrophils # Seg Neutrophils # Man Lymphocytes # (Manual) Monocytes # (Manual) PT INR ABG pH POC ABG pCO2 POC ABG pO2 ABG pO2 ABG HCO3 ABG O2 Saturation ABG Base Excess ABG Hemoglobin ABG Oxyhemoglobin ABG Sodium ABG Potassium ABG Chloride ABG Glucose Oxyhemoglobin Sodium Potassium Chloride 97.0 L Carbon Dioxide BUN 92 H Creatinine 11.0 H Glucose 125 H POC Glucose 130 H 122 H Lactic Acid Calcium Phosphorus Magnesium Total Bilirubin AST ALT Alkaline Phosphatase Total Protein Albumin Triglycerides Arterial Blood Glucose Arterial Blood Ionized Calcium Digoxin Crossmatch 01/25/21 01/26/21 01/26/21 23:37 04:19 05:48 WBC RBC Hgb Hct MCV MCHC RDW Plt Count Lymph % (Auto) [place] % (Auto) Eos % (Auto) Lymph # (Auto) [place] # (Auto) Eos # (Auto) Seg Neutrophils % Seg Neuts % (Manual) Lymphocytes % (Manual) Monocytes % (Manual) Seg Neutrophils # Seg Neutrophils # Man Lymphocytes # (Manual) Monocytes # (Manual) PT INR ABG pH POC ABG pCO2 POC ABG pO2 ABG pO2 ABG HCO3 ABG O2 Saturation ABG Base Excess ABG Hemoglobin ABG Oxyhemoglobin ABG Sodium ABG Potassium ABG Chloride ABG Glucose Oxyhemoglobin Sodium Potassium Chloride Carbon Dioxide BUN 49 H Creatinine 7.1 H Glucose POC Glucose 144 H 125 H Lactic Acid Calcium Phosphorus Magnesium 1.50 L Total Bilirubin AST ALT Alkaline Phosphatase Total Protein Albumin Triglycerides Arterial Blood Glucose Arterial Blood Ionized Calcium Digoxin Crossmatch 01/26/21 01/26/21 01/27/21 11:16 18:35 00:01 WBC RBC Hgb Hct MCV MCHC RDW Plt Count Lymph % (Auto) [place] % (Auto) Eos % (Auto) Lymph # (Auto) [place] # (Auto) Eos # (Auto) Seg Neutrophils % Seg Neuts % (Manual) Lymphocytes % (Manual) Monocytes % (Manual) Seg Neutrophils # Seg Neutrophils # Man Lymphocytes # (Manual) Monocytes # (Manual) PT INR ABG pH POC ABG pCO2 POC ABG pO2 ABG pO2 ABG HCO3 ABG O2 Saturation ABG Base Excess ABG Hemoglobin ABG Oxyhemoglobin ABG Sodium ABG Potassium ABG Chloride ABG Glucose Oxyhemoglobin Sodium Potassium Chloride Carbon Dioxide BUN Creatinine Glucose POC Glucose 122 H 127 H 130 H Lactic Acid Calcium Phosphorus Magnesium Total Bilirubin AST ALT Alkaline Phosphatase Total Protein Albumin Triglycerides Arterial Blood Glucose Arterial Blood Ionized Calcium Digoxin Crossmatch 01/27/21 01/27/21 01/27/21 04:19 04:19 05:25 WBC 12.4 H RBC 2.79 L Hgb 8.6 L Hct 25.1 L MCV MCHC RDW 16.1 H Plt Count Lymph % (Auto) 7.5 L [place] % (Auto) 9.3 H Eos % (Auto) 4.8 H Lymph # (Auto) 0.9 L [place] # (Auto) 1.1 H Eos # (Auto) 0.6 H Seg Neutrophils % 78.0 H Seg Neuts % (Manual) Lymphocytes % (Manual) Monocytes % (Manual) Seg Neutrophils # 9.7 H Seg Neutrophils # Man Lymphocytes # (Manual) Monocytes # (Manual) PT INR ABG pH POC ABG pCO2 POC ABG pO2 ABG pO2 ABG HCO3 ABG O2 Saturation ABG Base Excess ABG Hemoglobin ABG Oxyhemoglobin ABG Sodium ABG Potassium ABG Chloride ABG Glucose Oxyhemoglobin Sodium Potassium Chloride 97.9 L Carbon Dioxide BUN 76 H Creatinine 9.9 H Glucose 111 H POC Glucose 129 H Lactic Acid Calcium Phosphorus Magnesium Total Bilirubin AST ALT Alkaline Phosphatase Total Protein Albumin Triglycerides Arterial Blood Glucose Arterial Blood Ionized Calcium Digoxin Crossmatch 01/27/21 01/27/21 01/27/21 11:30 17:08 23:28 WBC RBC Hgb Hct MCV MCHC RDW Plt Count Lymph % (Auto) [place] % (Auto) Eos % (Auto) Lymph # (Auto) [place] # (Auto) Eos # (Auto) Seg Neutrophils % Seg Neuts % (Manual) Lymphocytes % (Manual) Monocytes % (Manual) Seg Neutrophils # Seg Neutrophils # Man Lymphocytes # (Manual) Monocytes # (Manual) PT INR ABG pH POC ABG pCO2 POC ABG pO2 ABG pO2 ABG HCO3 ABG O2 Saturation ABG Base Excess ABG Hemoglobin ABG Oxyhemoglobin ABG Sodium ABG Potassium ABG Chloride ABG Glucose Oxyhemoglobin Sodium Potassium Chloride Carbon Dioxide BUN Creatinine Glucose POC Glucose 128 H 158 H 114 H Lactic Acid Calcium Phosphorus Magnesium Total Bilirubin AST ALT Alkaline Phosphatase Total Protein Albumin Triglycerides Arterial Blood Glucose Arterial Blood Ionized Calcium Digoxin Crossmatch 01/28/21 01/28/21 01/28/21 05:17 11:27 18:01 WBC RBC Hgb Hct MCV MCHC RDW Plt Count Lymph % (Auto) [place] % (Auto) Eos % (Auto) Lymph # (Auto) [place] # (Auto) Eos # (Auto) Seg Neutrophils % Seg Neuts % (Manual) Lymphocytes % (Manual) Monocytes % (Manual) Seg Neutrophils # Seg Neutrophils # Man Lymphocytes # (Manual) Monocytes # (Manual) PT INR ABG pH POC ABG pCO2 POC ABG pO2 ABG pO2 ABG HCO3 ABG O2 Saturation ABG Base Excess ABG Hemoglobin ABG Oxyhemoglobin ABG Sodium ABG Potassium ABG Chloride ABG Glucose Oxyhemoglobin Sodium Potassium Chloride Carbon Dioxide BUN Creatinine Glucose POC Glucose 113 H 134 H 111 H Lactic Acid Calcium Phosphorus Magnesium Total Bilirubin AST ALT Alkaline Phosphatase Total Protein Albumin Triglycerides Arterial Blood Glucose Arterial Blood Ionized Calcium Digoxin Crossmatch 01/29/21 01/29/21 01/29/21 04:54 06:45 11:10 WBC RBC Hgb Hct MCV MCHC RDW Plt Count Lymph % (Auto) [place] % (Auto) Eos % (Auto) Lymph # (Auto) [place] # (Auto) Eos # (Auto) Seg Neutrophils % Seg Neuts % (Manual) Lymphocytes % (Manual) Monocytes % (Manual) Seg Neutrophils # Seg Neutrophils # Man Lymphocytes # (Manual) Monocytes # (Manual) PT INR ABG pH POC ABG pCO2 POC ABG pO2 ABG pO2 ABG HCO3 ABG O2 Saturation ABG Base Excess ABG Hemoglobin ABG Oxyhemoglobin ABG Sodium ABG Potassium ABG Chloride ABG Glucose Oxyhemoglobin Sodium Potassium 3.4 L Chloride Carbon Dioxide BUN 51 H Creatinine 6.9 H Glucose 120 H POC Glucose 111 H 106 H Lactic Acid Calcium Phosphorus 2.10 L Magnesium Total Bilirubin AST ALT Alkaline Phosphatase 182 H Total Protein 6.0 L Albumin 2.9 L Triglycerides Arterial Blood Glucose Arterial Blood Ionized Calcium Digoxin Crossmatch 01/29/21 01/30/21 01/30/21 16:47 04:15 06:55 WBC RBC Hgb Hct MCV MCHC RDW Plt Count Lymph % (Auto) [place] % (Auto) Eos % (Auto) Lymph # (Auto) [place] # (Auto) Eos # (Auto) Seg Neutrophils % Seg Neuts % (Manual) Lymphocytes % (Manual) Monocytes % (Manual) Seg Neutrophils # Seg Neutrophils # Man Lymphocytes # (Manual) Monocytes # (Manual) PT INR ABG pH POC ABG pCO2 POC ABG pO2 ABG pO2 ABG HCO3 ABG O2 Saturation ABG Base Excess ABG Hemoglobin ABG Oxyhemoglobin ABG Sodium ABG Potassium ABG Chloride ABG Glucose Oxyhemoglobin Sodium Potassium Chloride Carbon Dioxide BUN 73 H Creatinine 9.2 H Glucose 119 H POC Glucose 110 H 126 H Lactic Acid Calcium Phosphorus 4.70 H D Magnesium Total Bilirubin AST ALT Alkaline Phosphatase Total Protein Albumin Triglycerides Arterial Blood Glucose Arterial Blood Ionized Calcium Digoxin Crossmatch 01/30/21 01/31/21 01/31/21 18:25 00:51 07:15 WBC RBC Hgb Hct MCV MCHC RDW Plt Count Lymph % (Auto) [place] % (Auto) Eos % (Auto) Lymph # (Auto) [place] # (Auto) Eos # (Auto) Seg Neutrophils % Seg Neuts % (Manual) Lymphocytes % (Manual) Monocytes % (Manual) Seg Neutrophils # Seg Neutrophils # Man Lymphocytes # (Manual) Monocytes # (Manual) PT INR ABG pH POC ABG pCO2 POC ABG pO2 ABG pO2 ABG HCO3 ABG O2 Saturation ABG Base Excess ABG Hemoglobin ABG Oxyhemoglobin ABG Sodium ABG Potassium ABG Chloride ABG Glucose Oxyhemoglobin Sodium Potassium Chloride Carbon Dioxide BUN Creatinine Glucose POC Glucose 117 H 134 H 134 H Lactic Acid Calcium Phosphorus Magnesium Total Bilirubin AST ALT Alkaline Phosphatase Total Protein Albumin Triglycerides Arterial Blood Glucose Arterial Blood Ionized Calcium Digoxin Crossmatch 01/31/21 01/31/21 02/01/21 11:45 23:15 05:51 WBC RBC Hgb Hct MCV MCHC RDW Plt Count Lymph % (Auto) [place] % (Auto) Eos % (Auto) Lymph # (Auto) [place] # (Auto) Eos # (Auto) Seg Neutrophils % Seg Neuts % (Manual) Lymphocytes % (Manual) Monocytes % (Manual) Seg Neutrophils # Seg Neutrophils # Man Lymphocytes # (Manual) Monocytes # (Manual) PT INR ABG pH POC ABG pCO2 POC ABG pO2 ABG pO2 ABG HCO3 ABG O2 Saturation ABG Base Excess ABG Hemoglobin ABG Oxyhemoglobin ABG Sodium ABG Potassium ABG Chloride ABG Glucose Oxyhemoglobin Sodium Potassium Chloride Carbon Dioxide BUN Creatinine Glucose POC Glucose 119 H 120 H 125 H Lactic Acid Calcium Phosphorus Magnesium Total Bilirubin AST ALT Alkaline Phosphatase Total Protein Albumin Triglycerides Arterial Blood Glucose Arterial Blood Ionized Calcium Digoxin Crossmatch 02/01/21 02/02/21 02/02/21 22:05 03:25 06:16 WBC RBC Hgb Hct MCV MCHC RDW Plt Count Lymph % (Auto) [place] % (Auto) Eos % (Auto) Lymph # (Auto) [place] # (Auto) Eos # (Auto) Seg Neutrophils % Seg Neuts % (Manual) Lymphocytes % (Manual) Monocytes % (Manual) Seg Neutrophils # Seg Neutrophils # Man Lymphocytes # (Manual) Monocytes # (Manual) PT INR ABG pH POC ABG pCO2 POC ABG pO2 ABG pO2 ABG HCO3 ABG O2 Saturation ABG Base Excess ABG Hemoglobin ABG Oxyhemoglobin ABG Sodium ABG Potassium ABG Chloride ABG Glucose Oxyhemoglobin Sodium Potassium 3.3 L Chloride Carbon Dioxide BUN 38 H Creatinine 5.8 H Glucose 115 H POC Glucose 118 H 130 H Lactic Acid Calcium Phosphorus 1.80 L Magnesium 1.60 L Total Bilirubin AST ALT Alkaline Phosphatase Total Protein Albumin Triglycerides Arterial Blood Glucose Arterial Blood Ionized Calcium Digoxin Crossmatch 02/02/21 02/02/21 02/03/21 17:29 21:53 04:50 WBC RBC Hgb Hct MCV MCHC RDW Plt Count Lymph % (Auto) [place] % (Auto) Eos % (Auto) Lymph # (Auto) [place] # (Auto) Eos # (Auto) Seg Neutrophils % Seg Neuts % (Manual) Lymphocytes % (Manual) Monocytes % (Manual) Seg Neutrophils # Seg Neutrophils # Man Lymphocytes # (Manual) Monocytes # (Manual) PT INR ABG pH POC ABG pCO2 POC ABG pO2 ABG pO2 ABG HCO3 ABG O2 Saturation ABG Base Excess ABG Hemoglobin ABG Oxyhemoglobin ABG Sodium ABG Potassium ABG Chloride ABG Glucose Oxyhemoglobin Sodium Potassium Chloride Carbon Dioxide BUN Creatinine Glucose POC Glucose 115 H 120 H Lactic Acid Calcium Phosphorus Magnesium 1.60 L Total Bilirubin AST ALT Alkaline Phosphatase Total Protein Albumin Triglycerides Arterial Blood Glucose Arterial Blood Ionized Calcium Digoxin Crossmatch 02/03/21 02/03/21 02/03/21 06:12 18:25 23:47 WBC RBC Hgb Hct MCV MCHC RDW Plt Count Lymph % (Auto) [place] % (Auto) Eos % (Auto) Lymph # (Auto) [place] # (Auto) Eos # (Auto) Seg Neutrophils % Seg Neuts % (Manual) Lymphocytes % (Manual) Monocytes % (Manual) Seg Neutrophils # Seg Neutrophils # Man Lymphocytes # (Manual) Monocytes # (Manual) PT INR ABG pH POC ABG pCO2 POC ABG pO2 ABG pO2 ABG HCO3 ABG O2 Saturation ABG Base Excess ABG Hemoglobin ABG Oxyhemoglobin ABG Sodium ABG Potassium ABG Chloride ABG Glucose Oxyhemoglobin Sodium Potassium Chloride Carbon Dioxide BUN Creatinine Glucose POC Glucose 112 H 112 H 131 H Lactic Acid Calcium Phosphorus Magnesium Total Bilirubin AST ALT Alkaline Phosphatase Total Protein Albumin Triglycerides Arterial Blood Glucose Arterial Blood Ionized Calcium Digoxin Crossmatch 02/04/21 02/04/21 02/04/21 05:40 09:37 12:03 WBC RBC Hgb Hct MCV MCHC RDW Plt Count Lymph % (Auto) [place] % (Auto) Eos % (Auto) Lymph # (Auto) [place] # (Auto) Eos # (Auto) Seg Neutrophils % Seg Neuts % (Manual) Lymphocytes % (Manual) Monocytes % (Manual) Seg Neutrophils # Seg Neutrophils # Man Lymphocytes # (Manual) Monocytes # (Manual) PT INR ABG pH POC ABG pCO2 POC ABG pO2 ABG pO2 ABG HCO3 ABG O2 Saturation ABG Base Excess ABG Hemoglobin ABG Oxyhemoglobin ABG Sodium ABG Potassium ABG Chloride ABG Glucose Oxyhemoglobin Sodium 131 L D 135 L Potassium 3.0 L 3.1 L Chloride 93.4 L 96.7 L Carbon Dioxide BUN 46 H 52 H Creatinine 6.5 H 7.3 H Glucose 363 H 128 H POC Glucose 129 H Lactic Acid Calcium Phosphorus 2.40 L Magnesium 1.50 L 1.60 L Total Bilirubin AST ALT Alkaline Phosphatase Total Protein Albumin Triglycerides Arterial Blood Glucose Arterial Blood Ionized Calcium Digoxin Crossmatch 02/04/21 02/04/21 02/05/21 17:25 21:38 05:19 WBC RBC Hgb Hct MCV MCHC RDW Plt Count Lymph % (Auto) [place] % (Auto) Eos % (Auto) Lymph # (Auto) [place] # (Auto) Eos # (Auto) Seg Neutrophils % Seg Neuts % (Manual) Lymphocytes % (Manual) Monocytes % (Manual) Seg Neutrophils # Seg Neutrophils # Man Lymphocytes # (Manual) Monocytes # (Manual) PT INR ABG pH POC ABG pCO2 POC ABG pO2 ABG pO2 ABG HCO3 ABG O2 Saturation ABG Base Excess ABG Hemoglobin ABG Oxyhemoglobin ABG Sodium ABG Potassium ABG Chloride ABG Glucose Oxyhemoglobin Sodium Potassium Chloride Carbon Dioxide BUN Creatinine Glucose POC Glucose 132 H 108 H 116 H Lactic Acid Calcium Phosphorus Magnesium Total Bilirubin AST ALT Alkaline Phosphatase Total Protein Albumin Triglycerides Arterial Blood Glucose Arterial Blood Ionized Calcium Digoxin Crossmatch 02/05/21 02/05/21 02/05/21 06:30 11:25 16:20 WBC RBC Hgb Hct MCV MCHC RDW Plt Count Lymph % (Auto) [place] % (Auto) Eos % (Auto) Lymph # (Auto) [place] # (Auto) Eos # (Auto) Seg Neutrophils % Seg Neuts % (Manual) Lymphocytes % (Manual) Monocytes % (Manual) Seg Neutrophils # Seg Neutrophils # Man Lymphocytes # (Manual) Monocytes # (Manual) PT INR ABG pH POC ABG pCO2 POC ABG pO2 ABG pO2 ABG HCO3 ABG O2 Saturation ABG Base Excess ABG Hemoglobin ABG Oxyhemoglobin ABG Sodium ABG Potassium ABG Chloride ABG Glucose Oxyhemoglobin Sodium Potassium 3.2 L Chloride 96.5 L Carbon Dioxide BUN 76 H Creatinine 9.6 H Glucose 112 H POC Glucose 118 H 123 H Lactic Acid Calcium Phosphorus Magnesium 1.50 L Total Bilirubin AST ALT Alkaline Phosphatase 177 H Total Protein 6.0 L Albumin 2.9 L Triglycerides Arterial Blood Glucose Arterial Blood Ionized Calcium Digoxin Crossmatch 02/06/21 02/06/21 02/06/21 05:42 06:42 08:18 WBC RBC Hgb Hct MCV MCHC RDW Plt Count Lymph % (Auto) [place] % (Auto) Eos % (Auto) Lymph # (Auto) [place] # (Auto) Eos # (Auto) Seg Neutrophils % Seg Neuts % (Manual) Lymphocytes % (Manual) Monocytes % (Manual) Seg Neutrophils # Seg Neutrophils # Man Lymphocytes # (Manual) Monocytes # (Manual) PT INR ABG pH POC ABG pCO2 POC ABG pO2 ABG pO2 ABG HCO3 ABG O2 Saturation ABG Base Excess ABG Hemoglobin ABG Oxyhemoglobin ABG Sodium ABG Potassium ABG Chloride ABG Glucose Oxyhemoglobin Sodium 133 L Potassium Chloride 92.7 L Carbon Dioxide 19 L BUN 100 H Creatinine 11.9 H Glucose 114 H POC Glucose 118 H 114 H Lactic Acid Calcium Phosphorus 4.70 H Magnesium 1.60 L Total Bilirubin AST ALT Alkaline Phosphatase Total Protein Albumin Triglycerides Arterial Blood Glucose Arterial Blood Ionized Calcium Digoxin Crossmatch Allied health notes reviewed: nursing
--- NOTE | 2021-02-06 16:19 | Progress Note ---
Assessment and Plan Severe Sepsis with shock Streptococcus bovis bacteremia/Prevotella bacteremia Gwendolyn albicans tracheal aspirate Small bowel obstruction/necrotic bowel s/p ex lap with extensive lysis of adhesions, 2 small bowel resections with primary anastomosis, right hemicolectomy, jejunal colonic anastomosis, segmental small bowel resection Postoperative ileus Atrial fibrillation with RVR Leukocytosis Hypochloremia Gwendolyn albicans in tracheal aspirate from 12/24 ESRD on PD, PermCath to be placed Transaminitis Systolic CHF(EF 35%) Crohn's disease Hypertension Hypokalemia and hypophosphatemia -[facility], surgery, infectious disease, nephrology, vascular surgery, cardiology consulted, appreciate recommendations -12/24 S/p ex lap with extensive expectations, 2 small bowel resections with primary anastomosis with surgery on 12/23 -s/p PICC and Permacath placement with vascular surgery on 12/27 -Extubated on 12/28, reintubated 12/31 for respiratory distress and extubated 01/08 -12/29 echocardiogram shows moderate concentric LVH, small pericardial effusion, t ransmitral Doppler flow pattern is grade 1 abnormal relaxation pattern, left- ventricular systolic function normal, LVEF 50 to 55%, no wall motion abnormalities. -01/01 CT abdomen/pelvis shows small pericardial effusion, mild coronary artery atherosclerotic calcification, small bilateral pleural effusions with associated volume loss, no convincing evidence of bowel obstruction or inflammation, postop erative changes from interval/recent midline laparotomy with a moderate amount of free fluid throughout the abdomen, small amount of dependent free air presumably postoperative -01/02 s/p ex lap, resection of perforated anastamosis, washout and abthera wound vac placement. -01/04 s/p ex lap with right hemicolectomy. -01/06 s/p exploratory laparotomy, Jejunal colonic anastomosis, Segmental small bowel resection. -s/p Vasopressor support with Levophed and vasopressin -Transitioned to HD from PD -HD per nephro, Epogen with HD -Strict NPO -cont TPN, Octreotide drip -s/p NGT to LIWS, now placed on G-tube for decompression - s/p rectal tube -s/p IV antibiotics -Tobacco abuse cessation counseling -Trend CBC, BMP DVT/GI prophylaxis: PPI, heparin subcu, SCDs to bilateral lower extremities while in bed Brief Course: This is a 60 YO Male with ESRD on PD, GERD, Crohn's Disease, Nicotine Dependence, HTN, Systolic CHF(EF 35%) who presented to the emergency department on 12/22 with complaints of abdominal pain which began shortly after eating fast food rated 10/10 which is periumbilical, constant, associated with fever, nausea and multiple sites of vomiting and self-reported inability to undergo PD. In the emergency room patient underwent a CT scan of the abdomen/pe lvis which revealed evidence of partial small bowel obstruction, symptoms were consistent with bacterial peritonitis. Patient was admitted to the hospital service with sepsis, peritonitis, and small bowel obstruction with consults to general surgery, nephrology, infectious disease and [facility]. Daily clinical course: 12/23. Patient had temperature 101.2 F, tachycardia and elevated lactic acid on admission. Meet sepsis criteria. Started on IV antibiotics. ID has been con sulted. Surgery consulted this a.m.-advised laparoscopy. He remains on NG tube connected to suction. 12/24. Patient was noted to have peritonitis yesterday and patient undergoing exploratory laparotomy. Patient remained intubated after procedure and is in ICU. Now on broad-spectrum antibiotics. ID on board. 12/25. Remains mechanically ventilated and sedated. Temp 103 Fahrenheit. Antibiotics broadened-ID added fluconazole and Flagyl. Blood cultures ordered. Plan to repeat CT abdomen tomorrow if not better. Surgery following. 12/26: Patient remains on mechanical ventilation on CMV tidal line 550, rate of 14, PEEP of 8 and 30% FiO2 and sedated on fentanyl 4 micrograms. Today we will remove his Jeffery and CCM dropped his rate controlled him on CPAP. We will trend CBC given recent drop in H/H. 12/27: Patient remains intubated on CMV tidal volume 550, rate 12, PEEP 8 on 30% FiO2 at the time my examination. Patient's TPN will be changed to PPN. Patient's fentanyl drip will be changed to IV push fentanyl and have a permacath placed today and midline. Patient was placed on a spontaneous breathing trial was switched back to CMV prior to procedure. 12/28: Patient on fentanyl but awake and follows commands. At the time of my examination he was on a CPAP trial and is scheduled to receive HD today. s/o permacath and PICC placement with vascular yesterday. His blood culture grew Pr evotella and addition to Streptococcus bovis. This evening Dr. Spicer attempted to extubate the patient and his heart rate went to the 180s. Stat EKG obtained and cardiology consulted. 12/29: Patient was started on amiodarone IV for A. fib RVR yesterday and today he is more rate controlled into the 70s and 80s. Patient was extubated yesterday and is currently on Ventimask. Patient will be transferred to [facility]. Patient continues to be n.p.o. with TPN and NG tube to [facility]. He is hypokalemic today which was repleted. 12/30; patient was on IV amiodarone for treatment with RVR, rate is controlled. Patient was off oxygen. patient is n.p.o. and on TPN. Surgery is following the patient. 12/31: Patient was intubated overnight for respiratory distress and this morning on examination he was on assist control tidal volume 450, rate 20, PEEP 6, 100% FiO2 and RT was getting a ABG to adjust vent settings. Patient had a acute bump in WBC and per ID recommendations we will obtain a CT abdomen/pelvis if leukocytosis persist. Patient is on TPN and sedated with Levophed. Patient is also on vasopressor support with Levophed. Per surgery his ileus is resolving however will maintain OGT to LIWS. 01/01: Patient was started on a vasopressin yesterday late evening. This morning patient is on 20 mcg of Levophed and 0.03 vasopressin and sedated on 20 mcg of propofol. Patient WBC increased today and he is hypokalemic. We will treat hyperkalemia. Patient had a CT chest and abdomen/pelvis pending. The time examination total of 450, rate 20, PEEP of 6 and 35 percent FiO2. Per RN, Dr Pollock has stated that the patient will be returning to the OR today for likely anastomosis seen on CT abdomen/pelvis. 01/02: Patient noted, WBC improving, but noted to have anemia, will transfuse additional unit of Blood and repeat H/H. continue supportive care. 01/03: Continue to wean pressors, ABX PER ID, patient to return to OR today for washout and possible closure, CONTINUE TPN 5/12: Continues to show some improvement. Today is POD#12 s/p ex lap with extensive lysis of adhesions and two small bowel resections with primary anastamosis for SBO with necrotic segment small bowel. POD#3 s/p ex lap, resection of perforated anastamosis, washout and abthera wound vac placement. POD#1 s/p ex lap with right hemicolectomy. Surgery planning to take back to the OR on Saturday with the hope to anastamos ileum to transverse colon and close abdomen. keep NGT to suction. Pt in deep sedation due to open abdomen. Per ID - Continue IV Zosyn, renally dosed for Strep bacteremia treatment till 01/06/2021 -On TPN 01/05: Patient continues on HD, anticipate return to OR tomorrow for closure and anastemosis. Continues with deep sedation due to open abdomen 01/06: Continue supportive care, monitor pressures and electrolytes. He is post op Exploratory laparotomy, 2. Jejunal colonic anastomosis,3. Segmental small bowel resection and anastemosis closure today. Continue wound vac 01/07: Continue supportive care, Today is POD#15 s/p ex lap with extensive lysis of adhesions and two small bowel resections with primary anastamosis for SBO with necrotic segment small bowel. POD#6 s/p ex lap, resection of perforated anastamosis, washout and abthera wound vac placement. POD#4 s/p ex lap with right hemicolectomy. POD #1 exploratory laparotomy, 2. Jejunal colonic anastomosis,3. Segmental small bowel resection. Continue to monitor and correct electrolytes. Patient remains on fentanyl and TPN with lipids. Still hypoactive bowel sounds. 16: Patient now extubated, asked when he can go home, Still lethargic. Continue wound management, wound vac, Will need Rehab eval prior to discharge. 01/09: Patient remains on TPN, was started on labetalol drip per cardiology, karime ent had uncontrolled hypertension today however he cannot be given p.o. medications ileus resolves per surgery. Patient received hemodialysis today. NG tube remains to low intermittent suction. 01/10: Patient has some leukocytosis, slight hypokalemia and hyponatremia, metabolic acidosis. NG tube to LIWS, continue TPN. Patient will be downgraded to IMCU today. [facility] is working on placement. Will change frequency of hydralazine and discontinue labetalol drip. We will obtain a.m. BMP/mag/Phos a nd CBC. Infectious disease will like to start Zosyn if leukocytosis continues to worsen. 01/11: Patient leukocytosis has slightly improved potassium with in normal limits and other electrolytes are elevated but patient is scheduled for HD today. Remains on RA and A,A,Ox4. BP better controlled but remains elevated and we will increase clonidine dose. 01/12/2021; patient's blood pressure is better after dialysis and as needed IV medications and clonidine patch. Patient is followed by general surgery. Patient was alert and oriented and asked when he is going home. 01/13: Surgery is concerned about a leak at his anastamosis given increased output and will treat as controlled fistula and start an octreotide drip. And per surgery if he requires operative intervention will likely need to be left in discontinuity and eventual ileostomy as he has already failed two anastamoses. Patient still has tongue swelling and slurred speech. He is on Benadryl. 01/14: Patient's tongue swelling is improved, patient is alert and oriented, CAM ICU negative. Continue NG tube to low wall intermittent suction. Leukocytosis is improving. Hypomagnesemia resolved. Epogen with HD 01/15: Patient tongue swelling is much improved, bladder scan completed by bedside RN and he needed to be straight cathed. NGT output decreased. Leukocytosis improving. Patient has been having episodes of hypoglycemia during the day and he is on cyclic TPN, Lantus rescheduled to nightly and dosage decreased. 01/16: Continue management per ID and surgery. Will defer repeat CT of the abdomen to the team surgery has been approved by nephrology. Continue current diet and advance all to ice if okay with surgery discussed with nursing staff. 01/17: Discussed surgical recommendation of strict n.p.o. except for small amount of ice as patient has already failed to anastomosis. And risk for additional surgery with tissues were extremely friable from previous scar. He continues on octreotide drip to slow down GI output HARIS drain remains in place with NG suction for decompression. Patient verbalized understanding although stressed about being discharged. We will continue IMCU care unless otherwise advised by surg alisson. Prognosis remains guarded continue to monitor electrolytes considering GI output. 01/18: Continue supportive care, BP mildly elevated, continue to monitor, continue current therapy, if no return to PO soon may consider Increasing clonidine to 0.3, PO when ok with surgery. 01/19:Continue supportive care, Per ID continue IV Zosyn, plan to stop at 3 weeks from last surgery end date: 01/24/2021. Other management per surgery. Continue TPN. 01/20: Discussed with Surgery, will continue current management. Advised patient of the findings and plan. 01/21: Continue supportive care. Continue management per surgery advance diet when okay with surgery. Plan of care discussed with the patient in detail. 01/22: NG tube to be replaced explained to the patient why this is important. I agree with PT OT discussed with nursing staff very important to let the PT team know that they should manage HARIS drain while patient is ambulating so that he does not come out. Continue current management. Change in ocreotide to q8h and d/c drip NOTED 01/23: Continue supportive care, HD today, counselling provided to the patient on compliance with medical management 01/24: Replace NGT, Continue management per Surgery. POD 32. Mild hypokalemia noted, will replace. 01/25: Brief summary patient is a 60-year-old male admitted with abdominal pain and noted to have necrotic bowel concerning for PD associated peritonitis. Catheter was placed to convert to HD. Patient also underwent multiple surgical interventions. Initial cultures showed Streptococcus bovis bacteremia and Prevotella bacteremia a COLIN was without vegetations repeat blood cultures have been negative. Part of the surgery is included ex lap, resection of perforated anastomosis, washout and a better wound VAC placement on 01/01. While progress has remained slow if has indeed shown some improvement. Patient is agitated a bout being in the hospital but understands the care management been provided his vital to his health and to prevent further surgeries. The NG tube has been pulled out 2 days ago he vehemently refused the tube being placed back but after a day of nausea with associated vomiting he was accepting of the chest tube to put back. He continues on TPN. We will continue to monitor electrolytes and correct as needed. This a.m. and erroneous blood was obtained likely from the same line as TPN repeat was done which showed normalizing factors. Patient completed antibiotics on 01/25/2020 . 01/26 Patient with severe sepsis with septic shock, small bowel obstruction, necrotic bowel s/p multiple surgeries. He complains of abdominal pain. No fever currently. He asked me when is he going home and i explained that he is not yet stable for discharge 01/27 Patient with severe sepsis with septic shock, small bowel obstruction, necrotic bowel s/p multiple surgeries. He complains of abdominal pain. No fever currently. Paroxysmal atrial fib managed by cardiology 01/28 Patient with severe sepsis with septic shock, small bowel obstruction, necrotic bowel s/p multiple surgeries. No fever currently. No abd pain currently. I discussed with Surgeon, Dr. Pollock. Continue current management. He also has paroxysmal afib, managed by Cardiology. 01/29 Patient with severe sepsis with septic shock, small bowel obstruction, necrotic bowel s/p multiple surgeries. No fever currently. No abd pain currently. I discussed with Surgeon, Dr. Pollock, yesterday. Continue current management. He also has paroxysmal afib, managed by Cardiology. He is on Metoprolol, Digoxin, Clonidine 01/30 Patient with severe sepsis with septic shock, small bowel obstruction, necrotic bowel s/p multiple surgeries. Patient is a 60-year-old male admitted with abdominal pain and noted to have necrotic bowel concerning for PD associated peritonitis. Catheter was placed to convert to HD. Patient also underwent multiple surgical interventions. Initial cultures showed Streptococcus bovis bacteremia and Prevotella bacteremia a COLIN was without vegetations repeat blood cultures have been negative. Part of the surgery is included ex lap, resection of perforated anastomosis, washout and a better wound VAC placement on 01/01. While progress has remained slow if has indeed shown some improvement. Patient is agitated about being in the hospital but understands the care management been provided his vital to his health and to prevent further surgeries. He continues on TPN. No fever currently. Less abdominal pain. Discussed with Surgeon, Dr. Pollock, few days ago. Continue current management. He also has paroxysmal afib, managed by Cardiology. He is on Metoprolol, Digoxin, Clonidine. ESRD on dialysis managed by Nephrology. 01/31: Continue HARIS drain suction. Ongoing treatment for anastomotic leak/cont rolled low output fistula. Maintain LIWS to NGT and monitor output. continue q 8h ocreotide. cont TPN. Defer to general surgery for NG tube discontinuation. 02/01: planned for g-tube placement for gastric decompression. Removed NG tube today. S/p HD -tolerated well : Status post G-tube placement today, resume TPN, patient is off from rectal tube. Continue supportive care and follow general surgery recommendation for discharge planning. Hemodialysis per schedule 02/03 -02/05: cont TPN, G-tube suction, Continue supportive care and follow general surgery recommendation for discharge planning. Hemodialysis per schedule. 02/06: Per surgery Anastamotic leak slowing down and is a controlled fistula. Continue HARIS drain suction. Since HARIS drain has continued to stay about 10ml over the last several days, plan to continue lower dose of octreotide. continue g-tube to drainage for decompression. continue clear liquids and closely monitor HARIS drain output. patient need LTAC placement. Continue to replace electrolytes and monitor phosphate level Subjective Date of service: 02/06/21 Principal diagnosis: Ac hypoxemic resp failure; Severe Sepsis; Peritonitis; Acute SBO; ESRD; CHF Interval history: Patient seen and examined. Medical records and medication list reviewed. No acute event overnight noted by the RN. Patient denies any chest pain or difficulty breathing. Patient remains on TPN Discussed plan of care at bedside with patient. Objective - Exam Narrative Exam: Gen:Not in acute distress, lying in bed HEENT:Normocephalic , Neck:supple, no JVD Lungs:Clear to auscultation bilat, no rales Heart:S1 and S2 reg, no murmurs, no rubs or gallop Abd: covered with dressing, HARIS drain, decreased bowel sounds, G-tube in place Ext: No edema, no clubbing, no cyanosis Neuro:Awake,alert,oriented X3, moves all extremities psych: Calm, co-operative - Constitutional Vitals: Vital Signs - 12hr 02/06/21 02/06/21 02/06/21 05:02 05:07 05:29 Temperature 98.9 F Pulse Rate 86 Respiratory 18 Rate Blood Pressure 124/68 132/64 Blood Pressure 132/64 [Right] O2 Sat by Pulse 97 Oximetry 02/06/21 02/06/21 02/06/21 07:12 11:15 11:30 Temperature 98.8 F 98.6 F Pulse Rate 85 77 71 Respiratory 18 18 Rate Blood Pressure 116/66 174/77 161/78 Blood Pressure [Right] O2 Sat by Pulse 99 Oximetry 02/06/21 02/06/21 02/06/21 11:45 12:00 12:15 Temperature Pulse Rate 82 84 87 Respiratory Rate Blood Pressure 158/75 149/77 154/75 Blood Pressure [Right] O2 Sat by Pulse Oximetry 02/06/21 02/06/21 02/06/21 12:30 12:45 13:00 Temperature Pulse Rate 88 96 H 83 Respiratory Rate Blood Pressure 152/74 169/80 138/75 Blood Pressure [Right] O2 Sat by Pulse Oximetry 02/06/21 02/06/21 02/06/21 13:15 13:30 13:45 Temperature Pulse Rate 81 91 H 87 Respiratory Rate Blood Pressure 154/65 145/72 136/63 Blood Pressure [Right] O2 Sat by Pulse Oximetry 02/06/21 02/06/21 14:00 15:39 Temperature 98.9 F Pulse Rate 89 91 H Respiratory 20 Rate Blood Pressure 148/79 139/68 Blood Pressure [Right] O2 Sat by Pulse 100 Oximetry - Labs CBC & Chem 7: 01/27/21 04:19 02/06/21 08:18 Labs: Abnormal lab results 02/05/21 02/06/21 02/06/21 Range/Units 16:20 05:42 06:42 Sodium (137-145) mmol/L Chloride (98-107) mmol/L Carbon Dioxide (22-30) mmol/L BUN (9-20) mg/dL Creatinine (0.8-1.3) mg/dL Glucose (75-100) mg/dL POC Glucose 123 H 118 H 114 H (70-105) mg/dL Phosphorus (2.5-4.5) mg/dL Magnesium (1.7-2.3) mg/dL 02/06/21 Range/Units 08:18 Sodium 133 L (137-145) mmol/L Chloride 92.7 L (98-107) mmol/L Carbon Dioxide 19 L (22-30) mmol/L BUN 100 H (9-20) mg/dL Creatinine 11.9 H (0.8-1.3) mg/dL Glucose 114 H (75-100) mg/dL POC Glucose (70-105) mg/dL Phosphorus 4.70 H (2.5-4.5) mg/dL Magnesium 1.60 L (1.7-2.3) mg/dL HEART Score - HEART Score Troponin: Troponin T 0.021 ng/mL (0.00-0.029) 12/22/20 14:38
--- NOTE | 2021-02-06 17:49 | Progress Note ---
Assessment and Plan Assessment: * ESRD previously on peritoneal dialysis; now on back up HD (on peritoneal dialysis for 2 years) * Small bowel obstruction --s/p ex-lap with jejuno-ileal anastamosis --s/p ex lap with extensive lysis of adhesions and two small bowel resections with primary anastamosis for SBO with necrotic segment small bowel. --s/p ex lap, resection of perforated anastamosis, washout and abthera wound vac placement. --s/p ex lap with right hemicolectomy. * Acute respiratory failure, s/p extubation * Septic shock - resolved * Bacteremia - resolved * Anemia of ESRD * Atrial fibrilation, new onset * Post op ileus Plan: * Continue HD MWF via left IJ permcath (12/27) * 3K bath with dialysis * Decrease UF due to ongoing diarrhea * Epogen 10k units w/ dialysis * Rate control per cardiology * Nutrition per primary team * Maintatin MAP >65 * Surgery notes reviewed * He will also require outpatient hemodialysis chair prior to discharge * Elevated BUN likely secondary to catabolic state. Dialysis time was increased to 4 hours. Subjective Date of service: 02/06/21 Principal diagnosis: Ac hypoxemic resp failure; Severe Sepsis; Peritonitis; Acute SBO; ESRD; CHF Interval history: Notes diarrhea. Tolerating some oral intake. Objective - Exam Narrative Exam: General appearance: NAD Eyes: anicteric sclerae HENT: Normocephalic, Atraumatic Neck: supple, tracheal midline, no JVD Lungs: CTAB CV: RRR Abdomen: Soft, distended, periumbilical tenderness Extremities: no edema, no cyanosis Skin: No rash. Psych: Calm Neuro: Following commands - Vital Signs Vital signs: Vital Signs - 12hr 02/06/21 02/06/21 02/06/21 07:12 11:15 11:30 Temperature 98.8 F 98.6 F Pulse Rate 85 77 71 Respiratory 18 18 Rate Blood Pressure 116/66 174/77 161/78 O2 Sat by Pulse 99 Oximetry 02/06/21 02/06/21 02/06/21 11:45 12:00 12:15 Temperature Pulse Rate 82 84 87 Respiratory Rate Blood Pressure 158/75 149/77 154/75 O2 Sat by Pulse Oximetry 02/06/21 02/06/21 02/06/21 12:30 12:45 13:00 Temperature Pulse Rate 88 96 H 83 Respiratory Rate Blood Pressure 152/74 169/80 138/75 O2 Sat by Pulse Oximetry 02/06/21 02/06/21 02/06/21 13:15 13:30 13:45 Temperature Pulse Rate 81 91 H 87 Respiratory Rate Blood Pressure 154/65 145/72 136/63 O2 Sat by Pulse Oximetry 02/06/21 02/06/21 02/06/21 14:00 14:15 14:30 Temperature Pulse Rate 89 84 82 Respiratory Rate Blood Pressure 148/79 145/67 144/78 O2 Sat by Pulse Oximetry 02/06/21 02/06/21 02/06/21 14:45 15:00 15:15 Temperature Pulse Rate 79 78 76 Respiratory Rate Blood Pressure 146/77 146/76 144/75 O2 Sat by Pulse Oximetry 02/06/21 02/06/21 15:30 15:39 Temperature 98.0 F 98.9 F Pulse Rate 96 H 91 H Respiratory 18 20 Rate Blood Pressure 159/78 139/68 O2 Sat by Pulse 100 Oximetry - Lab 01/27/21 04:19 02/06/21 08:18 Most recent lab results ABG pH 7.345 pH Units (7.350-7.450) L 01/07/21 17:14 ABG pCO2 40.3 mm Hg 01/07/21 17:14 ABG pO2 67.4 mm Hg (80.0-90.0) L 01/07/21 17:14 ABG HCO3 21.5 mmol/L (20.0-26.0) 01/07/21 17:14 ABG O2 Saturation 94.3 % (95.0-99.0) L 01/07/21 17:14 Calcium 8.5 mg/dL (8.4-10.2) 02/06/21 08:18 Phosphorus 4.70 mg/dL (2.5-4.5) H 02/06/21 08:18 Magnesium 1.60 mg/dL (1.7-2.3) L 02/06/21 08:18 Medications & Allergies - Medications Allergies/Adverse Reactions: Allergies No Known Allergies Allergy (Verified 06/09/20 15:27) Home Medications: Home Medications Medication Instructions Recorded Confirmed Last Taken Type Albuterol Mdi (or & Nicu Only) 2 puff IH QID PRN #1 inhalation 04/01/17 02/05/21 10/31/20 09:00 Rx [ProAir HFA Inhaler] Calcium Acetate 667 mg PO DAILY 04/20/20 02/05/21 10/31/20 09:00 History Centrum Men's Tablet 1 tab PO DAILY 04/20/20 02/05/21 10/31/20 09:00 History Cinacalcet 30 mg PO DAILY 04/20/20 02/05/21 10/31/20 09:00 History Dialyvite with Zinc Tablet 1 tab PO DAILY 04/20/20 02/05/21 10/31/20 09:00 History Magnesium 250 mg PO BID 04/20/20 02/05/21 10/31/20 17:00 History Triamcinolone 0.1% 1 1000units TRANSDERMA DAILY 04/20/20 02/05/21 10/31/20 09:00 History Vit B12/Folic Acid/B6/Aa No.15 1,000 mg PO DAILY 04/20/20 02/05/21 10/31/20 09:00 History amLODIPine 10 mg PO DAILY 06/09/20 02/05/21 10/31/20 09:00 History AtorvaSTATin 40 mg PO HS 11/01/20 02/05/21 10/31/20 21:00 History Benadryl 25 mg PO HS 11/01/20 02/05/21 10/31/20 21:00 History Diclofenac 1 applic TRANSDERMA QID 11/01/20 02/05/21 10/31/20 19:00 History Fluticasone Propionate 1 spray INTRANASAL DAILY 11/01/20 02/05/21 10/31/20 09:00 History Vitamin D3 2,000 units PO QDAY 11/01/20 02/05/21 10/31/20 09:00 History carvediloL 12.5 mg PO DAILY 11/01/20 02/05/21 10/31/20 09:00 History hydrALAZINE 100 mg PO TID 11/01/20 02/05/21 10/31/20 19:00 History Active Medications: Generic Name Dose Route Start Last Admin Trade Name Freq PRN Reason Stop Dose Admin Acetaminophen 650 mg 12/31/20 15:30 01/21/21 05:28 Acetaminophen 650 Mg Rect Supp [place] 650 mg Q6H PRN Administration Non Cardiac Pain or Temp>100.5 Clonidine HCl 0.2 mg 01/11/21 10:00 02/01/21 16:44 Clonidine Tts 0.2 Mg/24 Hr Patch TD 0.2 mg We THOMAS Administration Dextrose 50 ml 01/14/21 17:59 01/18/21 15:10 Dextrose 50% In Water (25gm) 50 Ml Syringe IV 20 ml Q30MIN PRN Administration Hypoglycemia Protocol Digoxin 0.125 mg 02/04/21 10:00 02/04/21 09:40 Digoxin 0.125 Mg Tab PO Not Given Q48HR THOMAS Diphenhydramine HCl 50 mg 01/20/21 10:10 02/01/21 14:15 Diphenhydramine 50 Mg/Ml Vial IV 50 mg Q6H PRN Administration Itching Diphenoxylate HCl/Atropine 1 tab 02/06/21 18:00 Diphenoxylate/Atropine Tab PO Q6H THOMAS Famotidine 10 mg 12/24/20 13:00 02/05/21 21:36 Famotidine 20 Mg/2 Ml Inj IV 10 mg BID THOMAS Administration Fluticasone Propionate 50 mcg 02/07/21 10:00 Fluticasone Propionate Nasal [place] 16 Gm NS QDAY THOMSA Haloperidol Lactate 5 mg 12/29/20 14:16 01/22/21 23:56 Haloperidol Lactate 5 Mg/1 Ml Inj IV 5 mg Q12H PRN Administration Agitation Heparin Sodium (Porcine) 5,000 unit 12/24/20 10:00 02/05/21 21:47 Heparin 5,000 Unit/1 Ml Vial SUB-Q 5,000 unit Q12HR THOMAS Administration Hydralazine HCl 10 mg 01/10/21 14:00 02/06/21 10:00 Hydralazine 20 Mg/1 Ml Inj IV Not Given Q4HR THOMAS Hydrocortisone Acetate 1 applic 02/01/21 18:43 Hydrocortisone 1% Cream 28.4gm TP Q8H PRN Skin Irritation Hydromorphone HCl 0.25 mg 01/09/21 10:53 02/06/21 12:01 Hydromorphone 1 Mg/1 Ml Inj IV 0.25 mg Q6H PRN Administration Pain , Severe (7-10) Sodium Chloride 100 mls @ 999 mls/hr 01/27/21 18:37 Nacl 0.9% IV [place] PRN Hypotension Amino Acids/Electrolytes/Dextrose 2,016 mls @ 84 mls/hr 02/05/21 20:00 02/05/21 21:49 Tpn Adult IV 02/06/21 19:59 84 mls/hr DAILY@1999 [facility] Administration Protocol Fat Emulsion Intravenous 250 mls @ 21 mls/hr 02/06/21 20:00 Intralipid 20% IV 02/07/21 08:00 DAILY@1999 [facility] Amino Acids/Electrolytes/Dextrose 2,016 mls @ 84 mls/hr 02/06/21 20:00 Tpn Adult IV DAILY@1999 [facility] Protocol Insulin Glargine 5 units 01/18/21 22:00 02/05/21 22:04 Insulin Glargine 100 Units/Ml SUB-Q 5 units QHS [facility] Administration Insulin Human Lispro 0 unit 01/03/21 12:00 02/06/21 05:42 Insulin Lispro 100 Unit/Ml SUB-Q Not Given Q6HR [facility] Protocol Metoprolol Tartrate 5 mg 12/30/20 12:00 02/06/21 10:00 Metoprolol Tartrate 5 Mg/5 Ml Inj IV Not Given Q4HR [facility] Morphine Sulfate 2 mg 02/02/21 12:00 02/03/21 13:31 Morphine 2 Mg/1 Ml Inj IV 2 mg Q3H PRN Administration Pain, Moderate (4-6) Ondansetron HCl 4 mg 01/25/21 11:56 02/02/21 21:41 Ondansetron 4 Mg/2 Ml Inj IV 4 mg Q4H PRN Administration Nausea And Vomiting Scopolamine 1 each 01/15/21 11:00 02/05/21 09:51 Scopolamine Transdermal Patch 72 Hr TD 1 each Q3D THOMAS Administration Sodium Chloride 10 ml 12/22/20 22:00 02/05/21 21:48 Sodium Chloride 0.9% 10 Ml Flush Syringe IV 10 ml BID THOMAS Administration Sodium Chloride 10 ml 12/22/20 19:42 01/29/21 02:08 Sodium Chloride 0.9% 10 Ml Flush Syringe IV 10 ml PRN PRN Administration LINE FLUSH
[2021-02-06] MEDS: DIPHENOXYLATE/ATROPINE TAB PO SCH (18:46)
[2021-02-06] MEDS ORDERED: FAT EMULSIONS 20% 250 ML IV SCH (20:00)
[2021-02-06] MEDS ORDERED: TOTAL PARENTERAL NUTRITION 2,016 ML IV SCH (20:00)
[2021-02-06] MEDS: TOTAL PARENTERAL NUTRITION 2,016 ML IV SCH (21:35)
[2021-02-06] MEDS: ONDANSETRON 4 MG/2 ML INJ IV PRN (22:55)
[2021-02-07] MEDS: INSULIN GLARGINE 100 UNITS/ML SUB-Q SCH ×2 (00:01→22:50)
[2021-02-07] MEDS: INSULIN LISPRO 100 UNIT/ML SUB-Q SCH ×4 (00:01→18:47)
[2021-02-07] MEDS: hydrALAZINE 20 MG/1 ML INJ IV SCH ×7 (00:03→22:40)
[2021-02-07] MEDS: METOPROLOL TARTRATE 5 MG/5 ML INJ IV SCH ×7 (00:04→22:42)
[2021-02-07] MEDS: FAMOTIDINE 20 MG/2 ML INJ IV SCH ×3 (00:04→22:37)
[2021-02-07] MEDS: DIPHENOXYLATE/ATROPINE TAB PO SCH ×4 (02:06→18:04)
[2021-02-07 04:56] LABS: Basophils % (Auto) 0.5 % (0.0-1.8); Eosinophils # (Auto) 0.5 K/mm3 (0.0-0.4); Hematocrit 22.5 % (35.5-45.6); Lymphocytes # (Auto) 1.2 K/mm3 (1.2-5.4); Lymphocytes % (Auto) 12.7 % (13.4-35.0); Mean Corpuscular HGB Conc 36 % (32-34); Mean Corpuscular Volume 89 fl (84-94); Monocytes % (Auto) 10.2 % (0.0-7.3); Platelet Count 230 K/mm3 (140-440); Red Blood Count 2.52 M/mm3 (3.65-5.03); Red Cell Distribution Width 16.7 % (13.2-15.2)
[2021-02-07 05:12] LABS: Calcium 8.7 mg/dL (8.4-10.2)
--- NOTE | 2021-02-07 08:11 | Progress Note ---
Assessment and Plan Assessment and plan: Severe Sepsis with shock Streptococcus bovis bacteremia/Prevotella bacteremia Gwendolyn albicans tracheal aspirate Small bowel obstruction/necrotic bowel s/p ex lap with extensive lysis of adhesions, 2 small bowel resections with primary anastomosis, right hemicolectomy, jejunal colonic anastomosis, segmental small bowel resection Postoperative ileus Atrial fibrillation with RVR Leukocytosis Hypochloremia Gwendolyn albicans in tracheal aspirate from 12/24 ESRD on PD, PermCath to be placed Transaminitis Systolic CHF(EF 35%) Crohn's disease Hypertension Hypokalemia and hypophosphatemia -[facility], surgery, infectious disease, nephrology, vascular surgery, cardiology consulted, appreciate recommendations -12/24 S/p ex lap with extensive expectations, 2 small bowel resections with primary anastomosis with surgery on 12/23 -s/p PICC and Permacath placement with vascular surgery on 12/27 -Extubated on 12/28, reintubated 12/31 for respiratory distress and extubated 01/08 -12/29 echocardiogram shows moderate concentric LVH, small pericardial effusion, transmitral Doppler flow pattern is grade 1 abnormal relaxation pattern, left- ventricular systolic function normal, LVEF 50 to 55%, no wall motion abnormalities. -01/01 CT abdomen/pelvis shows small pericardial effusion, mild coronary artery atherosclerotic calcification, small bilateral pleural effusions with associated volume loss, no convincing evidence of bowel obstruction or inflammation, postoperative changes from interval/recent midline laparotomy with a moderate amount of free fluid throughout the abdomen, small amount of dependent free air presumably postoperative -01/02 s/p ex lap, resection of perforated anastamosis, washout and abthera wound vac placement. -01/04 s/p ex lap with right hemicolectomy. -01/06 s/p exploratory laparotomy, Jejunal colonic anastomosis, Segmental small bowel resection. -s/p Vasopressor support with Levophed and vasopressin -Transitioned to HD from PD -HD per nephro, Epogen with HD -Strict NPO -cont TPN, Octreotide drip -s/p NGT to LIWS, now placed on G-tube for decompression - s/p rectal tube -s/p IV antibiotics -Tobacco abuse cessation counseling -Trend CBC, BMP DVT/GI prophylaxis: PPI, heparin subcu, SCDs to bilateral lower extremities while in bed Brief Course: This is a 60 YO Male with ESRD on PD, GERD, Crohn's Disease, Nicotine Dependence, HTN, Systolic CHF(EF 35%) who presented to the emergency department on 12/22 with complaints of abdominal pain which began shortly after eating fast food rated 10/10 which is periumbilical, constant, associated with fever, nausea and multiple sites of vomiting and self-reported inability to undergo PD. In the emergency room patient underwent a CT scan of the abdomen/pelvis which revealed evidence of partial small bowel obstruction, symptoms were consistent with bacterial peritonitis. Patient was admitted to the hospital service with sepsis, peritonitis, and small bowel obstruction with consults to general surgery, nephrology, infectious disease and [facility]. Daily clinical course: 12/23. Patient had temperature 101.2 F, tachycardia and elevated lactic acid on admission. Meet sepsis criteria. Started on IV antibiotics. ID has been consulted. Surgery consulted this a.m.-advised laparoscopy. He remains on NG tube connected to suction. 12/24. Patient was noted to have peritonitis yesterday and patient undergoing exploratory laparotomy. Patient remained intubated after procedure and is in ICU. Now on broad-spectrum antibiotics. ID on board. 12/25. Remains mechanically ventilated and sedated. Temp 103 Fahrenheit. Antibiotics broadened-ID added fluconazole and Flagyl. Blood cultures ordered. Plan to repeat CT abdomen tomorrow if not better. Surgery following. 12/26: Patient remains on mechanical ventilation on CMV tidal line 550, rate of 14, PEEP of 8 and 30% FiO2 and sedated on fentanyl 4 micrograms. Today we will remove his Jeffery and [facility] dropped his rate controlled him on CPAP. We will trend CBC given recent drop in H/H. 12/27: Patient remains intubated on CMV tidal volume 550, rate 12, PEEP 8 on 30% FiO2 at the time my examination. Patient's TPN will be changed to PPN. Adebayo dueñas's fentanyl drip will be changed to IV push fentanyl and have a permacath placed today and midline. Patient was placed on a spontaneous breathing trial was switched back to CMV prior to procedure. 12/28: Patient on fentanyl but awake and follows commands. At the time of my examination he was on a CPAP trial and is scheduled to receive HD today. s/o permacath and PICC placement with vascular yesterday. His blood culture grew Prevotella and addition to Streptococcus bovis. This evening Dr. Spicer attempted to extubate the patient and his heart rate went to the 180s. Stat EKG obtained and cardiology consulted. 12/29: Patient was started on amiodarone IV for A. fib RVR yesterday and today he is more rate controlled into the 70s and 80s. Patient was extubated yesterday and is currently on Ventimask. Patient will be transferred to [facility]. Patient continues to be n.p.o. with TPN and NG tube to LIS. He is hypokalemic today which was repleted. 12/30; patient was on IV amiodarone for treatment with RVR, rate is controlled. Patient was off oxygen. patient is n.p.o. and on TPN. Surgery is following the patient. 12/31: Patient was intubated overnight for respiratory distress and this morning on examination he was on assist control tidal volume 450, rate 20, PEEP 6, 100% FiO2 and RT was getting a ABG to adjust vent settings. Patient had a acute bump in WBC and per ID recommendations we will obtain a CT abdomen/pelvis if leukocytosis persist. Patient is on TPN and sedated with Levophed. Patient is also on vasopressor support with Levophed. Per surgery his ileus is resolving however will maintain OGT to LIWS. 01/01: Patient was started on a vasopressin yesterday late evening. This morning patient is on 20 mcg of Levophed and 0.03 vasopressin and sedated on 20 mcg of propofol. Patient WBC increased today and he is hypokalemic. We will treat hyperkalemia. Patient had a CT chest and abdomen/pelvis pending. The time examination total of 450, rate 20, PEEP of 6 and 35 percent FiO2. Per RN, Dr Pollock has stated that the patient will be returning to the OR today for likely anastomosis seen on CT abdomen/pelvis. 01/02: Patient noted, WBC improving, but noted to have anemia, will transfuse additional unit of Blood and repeat H/H. continue supportive care. 01/03: Continue to wean pressors, ABX PER ID, patient to return to OR today for washout and possible closure, CONTINUE TPN 01/04: Continues to show some improvement. Today is POD#12 s/p ex lap with extensive lysis of adhesions and two small bowel resections with primary anastamosis for SBO with necrotic segment small bowel. POD#3 s/p ex lap, resection of perforated anastamosis, washout and abthera wound vac placement. POD#1 s/p ex lap with right hemicolectomy. Surgery planning to take back to the OR on Saturday with the hope to anastamos ileum to transverse colon and close abdomen. keep NGT to suction. Pt in deep sedation due to open abdomen. Per ID - Continue IV Zosyn, renally dosed for Strep bacteremia treatment till 01/06/2021 -On TPN 01/05: Patient continues on HD, anticipate return to OR tomorrow for closure and anastemosis. Continues with deep sedation due to open abdomen 01/06: Continue supportive care, monitor pressures and electrolytes. He is post op Exploratory laparotomy, 2. Jejunal colonic anastomosis,3. Segmental small bowel resection and anastemosis closure today. Continue wound vac 01/07: Continue supportive care, Today is POD#15 s/p ex lap with extensive lysis of adhesions and two small bowel resections with primary anastamosis for SBO wit h necrotic segment small bowel. POD#6 s/p ex lap, resection of perforated anastamosis, washout and abthera wound vac placement. POD#4 s/p ex lap with right hemicolectomy. POD #1 exploratory laparotomy, 2. Jejunal colonic anastomosis,3. Segmental small bowel resection. Continue to monitor and sruthi ect electrolytes. Patient remains on fentanyl and TPN with lipids. Still hypoactive bowel sounds. 16: Patient now extubated, asked when he can go home, Still lethargic. Continue wound management, wound vac, Will need Rehab eval prior to discharge. 01/09: Patient remains on TPN, was started on labetalol drip per cardiology, patient had uncontrolled hypertension today however he cannot be given p.o. medications ileus resolves per surgery. Patient received hemodialysis today. NG tube remains to low intermittent suction. 01/10: Patient has some leukocytosis, slight hypokalemia and hyponatremia, metabolic acidosis. NG tube to LIWS, continue TPN. Patient will be downgraded to IMCU today. [facility] is working on placement. Will change frequency of hydralazine and discontinue labetalol drip. We will obtain a.m. BMP/mag/Phos and CBC. Infectious disease will like to start Zosyn if leukocytosis continues to worsen. 01/11: Patient leukocytosis has slightly improved potassium with in normal limits and other electrolytes are elevated but patient is scheduled for HD today. Remains on RA and A,A,Ox4. BP better controlled but remains elevated and we will increase clonidine dose. 01/12/2021; patient's blood pressure is better after dialysis and as needed IV medications and clonidine patch. Patient is followed by general surgery. Patient was alert and oriented and asked when he is going home. 01/13: Surgery is concerned about a leak at his anastamosis given increased output and will treat as controlled fistula and start an octreotide drip. And per surgery if he requires operative intervention will likely need to be left in discontinuity and eventual ileostomy as he has already failed two anastamoses. Patient still has tongue swelling and slurred speech. He is on Benadryl. 01/14: Patient's tongue swelling is improved, patient is alert and oriented, CAM ICU negative. Continue NG tube to low wall intermittent suction. Leukocytosis is improving. Hypomagnesemia resolved. Epogen with HD 01/15: Patient tongue swelling is much improved, bladder scan completed by bedside RN and he needed to be straight cathed. NGT output decreased. Leukocytosis improving. Patient has been having episodes of hypoglycemia during the day and he is on cyclic TPN, Lantus rescheduled to nightly and dosage decreased. 01/16: Continue management per ID and surgery. Will defer repeat CT of the abdomen to the team surgery has been approved by nephrology. Continue current diet and advance all to ice if okay with surgery discussed with nursing staff. 01/17: Discussed surgical recommendation of strict n.p.o. except for small amount of ice as patient has already failed to anastomosis. And risk for additional surgery with tissues were extremely friable from previous scar. He continues on octreotide drip to slow down GI output HARIS drain remains in place with NG suction for decompression. Patient verbalized understanding although stressed about being discharged. We will continue IMCU care unless otherwise advised by surgery. Prognosis remains guarded continue to monitor electrolytes considering GI output. 01/18: Continue supportive care, BP mildly elevated, continue to monitor, con tinue current therapy, if no return to PO soon may consider Increasing clonidine to 0.3, PO when ok with surgery. 01/19:Continue supportive care, Per ID continue IV Zosyn, plan to stop at 3 weeks from last surgery end date: 01/24/2021. Other management per surgery. Continue TPN. 01/20: Discussed with Surgery, will continue current management. Advised patient of the findings and plan. 01/21: Continue supportive care. Continue management per surgery advance diet when okay with surgery. Plan of care discussed with the patient in detail. 01/22: NG tube to be replaced explained to the patient why this is important. I agree with PT OT discussed with nursing staff very important to let the PT team know that they should manage HARIS drain while patient is ambulating so that he does not come out. Continue current management. Change in ocreotide to q8h and d/c drip NOTED 01/23: Continue supportive care, HD today, counselling provided to the patient on compliance with medical management 01/24: Replace NGT, Continue management per Surgery. POD 32. Mild hypokalemia noted, will replace. 01/25: Brief summary patient is a 60-year-old male admitted with abdominal pain and noted to have necrotic bowel concerning for PD associated peritonitis. Catheter was placed to convert to HD. Patient also underwent multiple surgical interventions. Initial cultures showed Streptococcus bovis bacteremia and Prevotella bacteremia a COLIN was without vegetations repeat blood cultures have b een negative. Part of the surgery is included ex lap, resection of perforated anastomosis, washout and a better wound VAC placement on 01/01. While progress has remained slow if has indeed shown some improvement. Patient is agitated about being in the hospital but understands the care management been provided his vital to his health and to prevent further surgeries. The NG tube has been pulled out 2 days ago he vehemently refused the tube being placed back but after a day of nausea with associated vomiting he was accepting of the chest tube to put back. He continues on TPN. We will continue to monitor electrolytes and correct as needed. This a.m. and erroneous blood was obtained likely from the same line as TPN repeat was done which showed normalizing factors. Patient completed antibiotics on 01/25/2020 . 01/26 Patient with severe sepsis with septic shock, small bowel obstruction, necrotic bowel s/p multiple surgeries. He complains of abdominal pain. No fever currently. He asked me when is he going home and i explained that he is not yet stable for discharge 01/27 Patient with severe sepsis with septic shock, small bowel obstruction, necrotic bowel s/p multiple surgeries. He complains of abdominal pain. No fever currently. Paroxysmal atrial fib managed by cardiology 01/28 Patient with severe sepsis with septic shock, small bowel obstruction, necrotic bowel s/p multiple surgeries. No fever currently. No abd pain currently. I discussed with Surgeon, Dr. Pollock. Continue current management. He also has paroxysmal afib, managed by Cardiology. 01/29 Patient with severe sepsis with septic shock, small bowel obstruction, necrotic bowel s/p multiple surgeries. No fever currently. No abd pain currently. I discussed with Surgeon, Dr. Pollock, yesterday. Continue current management. He also has paroxysmal afib, managed by Cardiology. He is on Metoprolol, Digoxin, Clonidine 01/30 Patient with severe sepsis with septic shock, small bowel obstruction, n ecrotic bowel s/p multiple surgeries. Patient is a 60-year-old male admitted with abdominal pain and noted to have necrotic bowel concerning for PD associated peritonitis. Catheter was placed to convert to HD. Patient also underwent multiple surgical interventions. Initial cultures showed Strep tococcus bovis bacteremia and Prevotella bacteremia a COLIN was without vegetations repeat blood cultures have been negative. Part of the surgery is included ex lap, resection of perforated anastomosis, washout and a better wound VAC placement on 01/01. While progress has remained slow if has indeed shown some improvement. Patient is agitated about being in the hospital but understands the care management been provided his vital to his health and to prevent further surgeries. He continues on TPN. No fever currently. Less abdominal pain. Discussed with Surgeon, Dr. Plolock, few days ago. Continue current management. He also has paroxysmal afib, managed by Cardiology. He is on Metoprolol, D igoxin, Clonidine. ESRD on dialysis managed by Nephrology. 01/31: Continue HARIS drain suction. Ongoing treatment for anastomotic leak/controlled low output fistula. Maintain LIWS to NGT and monitor output. continue q 8h ocreotide. cont TPN. Defer to general surgery for NG tube discontinuation. 02/01: planned for g-tube placement for gastric decompression. Removed NG tube today. S/p HD -tolerated well : Status post G-tube placement today, resume TPN, patient is off from rectal tube. Continue supportive care and follow general surgery recommendation for discharge planning. Hemodialysis per schedule 02/03 -02/05: cont TPN, G-tube suction, Continue supportive care and follow general surgery recommendation for discharge planning. Hemodialysis per schedule. 02/06: Per surgery Anastamotic leak slowing down and is a controlled fistula. Continue HARIS drain suction. Since HARIS drain has continued to stay about 10ml over the last several days, plan to continue lower dose of octreotide. continue g-tube to drainage for decompression. continue clear liquids and closely monitor HARIS drain output. patient need LTAC placement. Continue to replace electrolytes and monitor phosphate level 02/07/2021; Per surgery Anastamotic leak slowing down and is a controlled fistula. Continue HARIS drain suction. Since HARIS drain has continued to stay about 10ml over the last several days, plan to continue lower dose of octreotide. continue g-tube to drainage for decompression. continue clear liquids and closely monitor HARIS drain output. patient need LTAC placement. Continue to replace electrolytes and monitor phosphate level. History Interval history: Patient was seen and evaluated this morning Patient on TPN, tolerated clear liquid diet HARIS tube in place Hospitalist Physical - Physical exam Narrative exam: Patient was not in cardiopulmonary distress The patient appeared well nourished and normally developed. Vital signs as documented. Head exam is unremarkable. No scleral icterus . Neck is without jugular venous distension, thyromegaly, or carotid bruits. Lungs are clear to auscultation. Cardiac exam reveals regular rate and Rhythm. Abdominal exam reveals clean midline surgical laparatomy wound. HARIS tube in place Extremities are nonedematous and both femoral and pedal pulses are normal. MEDICAL UNIT SECRETARY: Alert and oriented 3. No focal weakness. - Constitutional Vitals: Temp Pulse Resp BP Pulse Ox 98.7 F 83 16 127/64 97 02/07/21 07:19 02/07/21 07:19 02/07/21 07:19 02/07/21 07:19 02/07/21 07:19 General appearance: Present: no acute distress HEART Score - HEART Score Troponin: Troponin T 0.021 ng/mL (0.00-0.029) 12/22/20 14:38 Results - Labs CBC & Chem 7: 02/07/21 04:35 02/07/21 04:35 Labs: Laboratory Last Values WBC 9.6 K/mm3 (4.5-11.0) 02/07/21 04:35 RBC 2.52 M/mm3 (3.65-5.03) L 02/07/21 04:35 Hgb 8.0 gm/dl (11.8-15.2) L 02/07/21 04:35 Hct 22.5 % (35.5-45.6) L 02/07/21 04:35 MCV 89 fl (84-94) 02/07/21 04:35 MCH 32 pg (28-32) 02/07/21 04:35 MCHC 36 % (32-34) H 02/07/21 04:35 RDW 16.7 % (13.2-15.2) H 02/07/21 04:35 Plt Count 230 K/mm3 (140-440) 02/07/21 04:35 Lymph % (Auto) 12.7 % (13.4-35.0) L 02/07/21 04:35 Becker % (Auto) 10.2 % (0.0-7.3) H 02/07/21 04:35 Eos % (Auto) 5.0 % (0.0-4.3) H 02/07/21 04:35 Baso % (Auto) 0.5 % (0.0-1.8) 02/07/21 04:35 Lymph # (Auto) 1.2 K/mm3 (1.2-5.4) 02/07/21 04:35 Becker # (Auto) 1.0 K/mm3 (0.0-0.8) H 02/07/21 04:35 Eos # (Auto) 0.5 K/mm3 (0.0-0.4) H 02/07/21 04:35 Baso # (Auto) 0.0 K/mm3 (0.0-0.1) 02/07/21 04:35 Add Manual Diff Complete 01/10/21 09:26 Total Counted 100 01/10/21 09:26 Seg Neutrophils % 71.6 % (40.0-70.0) H 02/07/21 04:35 Seg Neuts % (Manual) 95.0 % (40.0-70.0) H 01/10/21 09:26 Band Neutrophils % 1.0 % 01/10/21 09:26 Lymphocytes % (Manual) 3.0 % (13.4-35.0) L 01/10/21 09:26 Reactive Lymphs % (Man) 1.0 % 12/29/20 05:16 Monocytes % (Manual) 1.0 % (0.0-7.3) 01/10/21 09:26 Eosinophils % (Manual) 2.0 % (0.0-4.3) 12/29/20 05:16 Metamyelocytes % 2.0 % 12/29/20 05:16 Nucleated RBC % Not Reportable 01/10/21 09:26 Seg Neutrophils # 6.9 K/mm3 (1.8-7.7) 02/07/21 04:35 Seg Neutrophils # Man 17.3 K/mm3 (1.8-7.7) H 01/10/21 09:26 Band Neutrophils # 0.2 K/mm3 01/10/21 09:26 Lymphocytes # (Manual) 0.5 K/mm3 (1.2-5.4) L 01/10/21 09:26 Abs React Lymphs (Man) 0.0 K/mm3 01/10/21 09:26 Monocytes # (Manual) 0.2 K/mm3 (0.0-0.8) 01/10/21 09:26 Eosinophils # (Manual) 0.0 K/mm3 (0.0-0.4) 01/10/21 09:26 Basophils # (Manual) 0.0 K/mm3 (0.0-0.1) 01/10/21 09:26 Metamyelocytes # 0.0 K/mm3 01/10/21 09:26 Myelocytes # 0.0 K/mm3 01/10/21 09:26 Promyelocytes # 0.0 K/mm3 01/10/21 09:26 Blast Cells # 0.0 K/mm3 01/10/21 09:26 WBC Morphology Not Reportable 01/10/21 09:26 Hypersegmented Neuts Not Reportable 01/10/21 09:26 Hyposegmented Neuts Not Reportable 01/10/21 09:26 Hypogranular Neuts Not Reportable 01/10/21 09:26 Smudge Cells Not Reportable 01/10/21 09:26 Toxic Granulation 1+ 01/10/21 09:26 Toxic Vacuolation Not Reportable 01/10/21 09:26 Dohle Bodies Not Reportable 01/10/21 09:26 Pelger-Huet Anomaly Not Reportable 01/10/21 09:26 Lamar Rods Not Reportable 01/10/21 09:26 Platelet Estimate Consistent w auto 01/10/21 09:26 Clumped Platelets Not Reportable 01/10/21 09:26 Plt Clumps, EDTA Not Reportable 01/10/21 09:26 Large Platelets Not Reportable 01/10/21 09:26 Giant Platelets Not Reportable 01/10/21 09:26 Platelet Satelliting Not Reportable 01/10/21 09:26 Plt Morphology Comment Not Reportable 01/10/21 09:26 RBC Morphology Not Reportable 01/10/21 09:26 Dimorphic RBCs Not Reportable 01/10/21 09:26 Polychromasia Not Reportable 01/10/21 09:26 Hypochromasia Not Reportable 01/10/21 09:26 Poikilocytosis Not Reportable 01/10/21 09:26 Anisocytosis 1+ 01/10/21 09:26 Microcytosis Not Reportable 01/10/21 09:26 Macrocytosis Not Reportable 01/10/21 09:26 Spherocytes Not Reportable 01/10/21 09:26 Pappenheimer Bodies Not Reportable 01/10/21 09:26 Sickle Cells Not Reportable 01/10/21 09:26 Target Cells Not Reportable 01/10/21 09:26 Tear Drop Cells Not Reportable 01/10/21 09:26 Ovalocytes Not Reportable 01/10/21 09:26 Helmet Cells Not Reportable 01/10/21 09:26 [place] Bodies Not Reportable 01/10/21 09:26 [place] Rings Not Reportable 01/10/21 09:26 Jenny Cells Not Reportable 01/10/21 09:26 Bite Cells Not Reportable 01/10/21 09:26 Crenated Cell Not Reportable 01/10/21 09:26 Elliptocytes Not Reportable 01/10/21 09:26 Acanthocytes (Spur) Not Reportable 01/10/21 09:26 Rouleaux Not Reportable 01/10/21 09:26 Hemoglobin C Crystals Not Reportable 01/10/21 09:26 Schistocytes Not Reportable 01/10/21 09:26 Malaria parasites Not Reportable 01/10/21 09:26 Lucas Bodies Not Reportable 01/10/21 09:26 Hem Pathologist Commnt No 01/10/21 09:26 PT 16.9 Sec. (12.2-14.9) H 01/01/21 12:45 INR 1.39 (0.87-1.13) H 01/01/21 12:45 APTT 25.1 Sec. (24.2-36.6) 12/22/20 14:38 ABG pH 7.345 pH Units (7.350-7.450) L 01/07/21 17:14 POC ABG pCO2 41.4 mmHg (32.0-48.0) 01/07/21 03:07 ABG pCO2 40.3 mm Hg 01/07/21 17:14 POC ABG pO2 94.5 mmHg (83-108) 01/07/21 03:07 ABG pO2 67.4 mm Hg (80.0-90.0) L 01/07/21 17:14 POC ABG HCO3 22.7 01/07/21 03:07 ABG HCO3 21.5 mmol/L (20.0-26.0) 01/07/21 17:14 ABG O2 Saturation 94.3 % (95.0-99.0) L 01/07/21 17:14 ABG O2 Content 11.6 (0.0-44) 01/07/21 17:14 POC ABG Base Excess -2.7 01/07/21 03:07 ABG Base Excess -3.9 mmol/L (-2.0-3.0) L 01/07/21 17:14 ABG Hemoglobin 8.9 gm/dl (14.0-18.0) L 01/07/21 17:14 ABG Oxyhemoglobin 96.6 (94-98) 01/07/21 03:07 ABG Carboxyhemoglobin 1.5 % (0.0-5.0) 01/07/21 17:14 ABG Methemoglobin 0.6 % (0.0-1.5) 01/07/21 17:14 ABG Sodium 135.6 mmol/L (136.0-145.0) L 01/07/21 03:07 ABG Potassium 4.0 mmol/L (3.40-4.50) 01/07/21 03:07 ABG Chloride 102.0 mmol/L (98-107) 01/07/21 03:07 ABG Glucose 181 mg/dL (65-95) H 01/07/21 03:07 Oxyhemoglobin 92.3 % (95.0-99.0) L 01/07/21 17:14 Carboxyhemoglobin 0.7 (0.5-1.5) 01/07/21 03:07 FiO2 21 % 01/07/21 17:14 FiO2 % 45.0 01/07/21 03:07 Sodium 135 mmol/L (137-145) L 02/07/21 04:35 Potassium 3.4 mmol/L (3.6-5.0) L 02/07/21 04:35 Chloride 95.5 mmol/L (98-107) L 02/07/21 04:35 Carbon Dioxide 25 mmol/L (22-30) 02/07/21 04:35 Anion Gap 18 mmol/L 02/07/21 04:35 BUN 59 mg/dL (9-20) H 02/07/21 04:35 Creatinine 8.5 mg/dL (0.8-1.3) H 02/07/21 04:35 Estimated GFR 8 ml/min 02/07/21 04:35 BUN/Creatinine Ratio 7 % 02/07/21 04:35 Glucose 88 mg/dL (75-100) 02/07/21 04:35 POC Glucose 117 mg/dL (70-105) H 02/06/21 23:22 Lactic Acid 1.10 mmol/L (0.7-2.0) 01/14/21 05:39 Calcium 8.7 mg/dL (8.4-10.2) 02/07/21 04:35 Phosphorus 3.30 mg/dL (2.5-4.5) D 02/07/21 04:35 Magnesium 1.60 mg/dL (1.7-2.3) L 02/06/21 08:18 Total Bilirubin 0.50 mg/dL (0.1-1.2) 02/05/21 06:30 AST 19 units/L (5-40) 02/05/21 06:30 ALT 22 units/L (7-56) 02/05/21 06:30 Alkaline Phosphatase 177 units/L (35-129) H 02/05/21 06:30 Ammonia 30.0 umol/L (25-60) 12/22/20 14:38 Troponin T 0.021 ng/mL (0.00-0.029) 12/22/20 14:38 Total Protein 6.0 g/dL (6.3-8.2) L 02/05/21 06:30 Albumin 2.9 g/dL (3.9-5) L 02/05/21 06:30 Albumin/Globulin Ratio 0.9 % 02/05/21 06:30 Triglycerides 72 mg/dL (2-149) 01/30/21 04:15 Lipase 41 units/L (13-60) 12/22/20 14:38 Procalcitonin > 200.00 ng/mL (<0.15) 12/24/20 15:06 TSH 1.470 mlU/mL (0.270-4.200) 12/28/20 19:44 Arterial Blood Glucose 181 mg/dL (65-95) H 01/07/21 03:07 Arterial Blood Ionized Calcium 4.3 mg/dL (4.6-5.3) L 01/07/21 03:07 Urine Color Yellow (Yellow) 12/22/20 18:53 Urine Turbidity Clear (Clear) 12/22/20 18:53 Urine pH 7.0 (5.0-7.0) 12/22/20 18:53 Ur Specific [place] 1.012 (1.003-1.030) 12/22/20 18:53 Urine Protein >500 mg/dL (Negative) 12/22/20 18:53 Urine Glucose (UA) Neg mg/dL (Negative) 12/22/20 18:53 Urine Ketones Neg mg/dL (Negative) 12/22/20 18:53 Urine Blood Neg (Negative) 12/22/20 18:53 Urine Nitrite Neg (Negative) 12/22/20 18:53 Urine Bilirubin Neg (Negative) 12/22/20 18:53 Urine Urobilinogen < 2.0 mg/dL (<2.0) 12/22/20 18:53 Ur Leukocyte Esterase Neg (Negative) 12/22/20 18:53 Urine WBC (Auto) < 1.0 /HPF (0.0-6.0) 12/22/20 18:53 Urine RBC (Auto) 1.0 /HPF (0.0-6.0) 12/22/20 18:53 Fluid Type Dialysate 12/22/20 Unknown Fluid Color Colorless 12/22/20 Unknown Fluid Appearance Cloudy 12/22/20 Unknown Fluid WBC 208 /mm3 12/22/20 Unknown Fluid RBC 45 /mm3 12/22/20 Unknown Fluid Seg Neutrophils 82.0 % 12/22/20 Unknown Fluid Lymphocytes 11.0 % 12/22/20 Unknown Fluid Reactive Lymphs 0 % 12/22/20 Unknown Fluid Monocytes 7.0 % 12/22/20 Unknown Fluid Eosinophils 0 % 12/22/20 Unknown Fluid Basophils 0 % 12/22/20 Unknown Random Vancomycin 13.7 ug/mL (0-40.0) 12/26/20 Unknown Digoxin 0.9 ng/mL (0.9-2.0) 02/04/21 05:40 Hepatitis A IgM Ab Non-reactive (NonReactive) 02/02/21 12:41 Hep Bs Antigen Non-reactive (Negative) 02/02/21 12:41 Hep B Core IgM Ab Non-reactive (NonReactive) 02/02/21 12:41 Hepatitis C Antibody Non-reactive (NonReactive) 02/02/21 12:41 Blood Type A POSITIVE 01/06/21 07:10 Antibody Screen Negative 01/06/21 07:10 Crossmatch See Detail 01/06/21 07:10 Jeffery/IV: Voiding Method Toilet Active Medications - Current Medications Current Medications: Generic Name Dose Route Start Last Admin Trade Name Freq PRN Reason Stop Dose Admin Acetaminophen 650 mg 12/31/20 15:30 01/21/21 05:28 Acetaminophen 650 Mg Rect Supp [place] 650 mg Q6H PRN Administration Non Cardiac Pain or Temp>100.5 Clonidine HCl 0.2 mg 01/11/21 10:00 02/01/21 16:44 Clonidine Tts 0.2 Mg/24 Hr Patch TD 0.2 mg We THOMAS Administration Dextrose 50 ml 01/14/21 17:59 01/18/21 15:10 Dextrose 50% In Water (25gm) 50 Ml Syringe IV 20 ml Q30MIN PRN Administration Hypoglycemia Protocol Digoxin 0.125 mg 02/04/21 10:00 02/06/21 10:45 Digoxin 0.125 Mg Tab PO Not Given Q48HR THOMAS Diphenhydramine HCl 50 mg 01/20/21 10:10 02/01/21 14:15 Diphenhydramine 50 Mg/Ml Vial IV 50 mg Q6H PRN Administration Itching Diphenoxylate HCl/Atropine 1 tab 02/06/21 18:00 02/07/21 02:06 Diphenoxylate/Atropine Tab PO 1 tab Q6H THOMAS Administration Famotidine 10 mg 12/24/20 13:00 02/07/21 00:04 Famotidine 20 Mg/2 Ml Inj IV 10 mg BID THOMAS Administration Fluticasone Propionate 50 mcg 02/07/21 10:00 Fluticasone Propionate Nasal [place] 16 Gm NS QDAY [facility] Haloperidol Lactate 5 mg 12/29/20 14:16 01/22/21 23:56 Haloperidol Lactate 5 Mg/1 Ml Inj IV 5 mg Q12H PRN Administration Agitation Heparin Sodium (Porcine) 5,000 unit 12/24/20 10:00 02/06/21 21:46 Heparin 5,000 Unit/1 Ml Vial SUB-Q 5,000 unit Q12HR [facility] Administration Hydralazine HCl 10 mg 01/10/21 14:00 02/07/21 06:55 Hydralazine 20 Mg/1 Ml Inj IV Not Given Q4HR [facility] Hydrocortisone Acetate 1 applic 02/01/21 18:43 Hydrocortisone 1% Cream 28.4gm TP Q8H PRN Skin Irritation Hydromorphone HCl 0.25 mg 01/09/21 10:53 02/06/21 12:01 Hydromorphone 1 Mg/1 Ml Inj IV 0.25 mg Q6H PRN Administration Pain , Severe (7-10) Sodium Chloride 100 mls @ 999 mls/hr 01/27/21 18:37 Nacl 0.9% IV [place] PRN Hypotension Amino Acids/Electrolytes/Dextrose 2,016 mls @ 84 mls/hr 02/06/21 20:00 02/06/21 21:35 Tpn Adult IV 84 mls/hr DAILY@1999 [facility] Administration Protocol Insulin Glargine 5 units 01/18/21 22:00 02/07/21 00:01 Insulin Glargine 100 Units/Ml SUB-Q Not Given QHS [facility] Insulin Human Lispro 0 unit 01/03/21 12:00 02/07/21 00:01 Insulin Lispro 100 Unit/Ml SUB-Q Not Given Q6HR [facility] Protocol Metoprolol Tartrate 5 mg 12/30/20 12:00 02/07/21 06:55 Metoprolol Tartrate 5 Mg/5 Ml Inj IV Not Given Q4HR [facility]OMAS Morphine Sulfate 2 mg 02/02/21 12:00 02/03/21 13:31 Morphine 2 Mg/1 Ml Inj IV 2 mg Q3H PRN Administration Pain, Moderate (4-6) Ondansetron HCl 4 mg 01/25/21 11:56 02/06/21 22:55 Ondansetron 4 Mg/2 Ml Inj IV 4 mg Q4H PRN Administration Nausea And Vomiting Scopolamine 1 each 01/15/21 11:00 02/05/21 09:51 Scopolamine Transdermal Patch 72 Hr TD 1 each Q3D THOMAS Administration Sodium Chloride 10 ml 12/22/20 22:00 02/06/21 10:45 Sodium Chloride 0.9% 10 Ml Flush Syringe IV 10 ml BID THOMAS Administration Sodium Chloride 10 ml 12/22/20 19:42 01/29/21 02:08 Sodium Chloride 0.9% 10 Ml Flush Syringe IV 10 ml PRN PRN Administration LINE FLUSH Nutrition/Malnutrition Assess - Dietary Evaluation Nutrition/Malnutrition Findings: Nutrition Notes Start: 12/24/20 12 :36 Freq: Status: Active Protocol: Document 02/06/21 09:51 (Rec: 02/06/21 09:55 [email or web address]) Nutrition Notes Initial or Follow up Reassessment Current Diagnosis CKD (stage V CKD),Sepsis, Hypertension,Heart Failure, Small Bowel Obstruction Other Pertinent Diagnosis on HD, Peritonitis, SBO s/p resection Current Diet CPN at 84 ml/hr, Clear Liquids Labs/Tests Phos 4.7 Mg 1.6 Pertinent Medications Reviewed Height 5 ft 7 in Weight 84 kg [place] Body Weight (kg) 67.27 BMI 29.0 Weight Status Overweight Subjective/Other Information TPN day 43. Will increase Mg. Pt at HD. Per RN, pt drinking small sips of clear liquids because he is afraid of more diarrhea. Percent of energy/protein needs met: 100%/100% Burn Absent Trauma Absent GI Symptoms Diarrhea Current % PO Negligible Minimum of two criteria No Reduced [employer] Strength Measurably Reduced (severe) #2 Nutrition Diagnosis Increased nutrient needs ( specify in comment below) Diagnosis Progress(for reassessment Continues documentation) #1 Nutrition Diagnosis Inadequate oral intake Diagnosis Progress(for reassessment Continues documentation) Is patient on ventilator? No Is Patient Ambulatory and/or Out of Bed No REE-([place]-St. Jeor-confined to bed) 1923.300 Kcal/Kg value to use for calculation 21 Approximate Energy Requirements Using 1764 kcal/Kg Calculation Used for Recommendations Kcal/kg Additional Notes Pro needs: 100-120 g/day (1.25 -1.5 g/kg AdjBW, 81kg) Fluid needs per MD. Nutrition Intervention Change Diet Order: Continue CPN Nutrition Support: Continous CPN at 84 ml/hr: Osm 1627; Mg 15 mEq MVI, Lipids Kcal 2,174 Protein (gm) 121 Carbohydrates (gm) 350 Fat (gm) 50 Fluid (mL) 2,266 Fiber (gm) 0 Goal #1 Meet at least 75% of estimated energy and protein needs via CPN Anticipated Discharge Needs: continuous TPN at 84ml/hr Follow-Up By: 02/07/21 Additional Comments FU for TPN
[2021-02-07] MEDS: HEPARIN 5,000 UNIT/1 ML VIAL SUB-Q SCH ×2 (11:10→22:41)
--- NOTE | 2021-02-07 12:24 | Progress Note ---
Assessment and Plan This is a 60 YO Male with ESRD on PD, GERD, Crohn's Disease, Nicotine Dependence, HTN, Systolic CHF(EF 35%) who presented to the emergency department on 12/22 with complaints of abdominal pain which began shortly after eating fast food rated 10/10 which is periumbilical, constant, associated with fever, nausea and multiple sites of vomiting and self-reported inability to undergo PD. In the emergency room patient underwent a CT scan of the abdomen/pelvis which revealed evidence of partial small bowel obstruction, symptoms were consistent with bacterial peritonitis. Patient was admitted to the hospital service with sepsis, peritonitis, and small bowel obstruction with consults to general surgery, nephrology, infectious disease and [facility]. On 01/06/21 the patient underwent an exploratory laparotomy, jejunal colonic anastomosis, and segmental small bowel resection. ABG's (01/07/21): pH 7.345 pH POC ABG pCO2 41.4 mmHg ABG pCO2 40.3 mm Hg POC ABG pO2 94.5 mmHg ABG pO2 67.4 mm Hg POC ABG HCO3 22.7 ABG O2 Saturation 94.3 % Patient sleeping on room air. O2 saturation 100%. No acute respiratory distre ss. Patient afebrile. No leukocytosis. Blood pressure 131/71. Chest x-ray 01/03/21 reported There is decreased inspiration compared to yesterday's exam. Hazy opacity in the right perihilar region and larger area of infiltration in the left lower lung appears stable given differences in the leve l of inspiration. No large pleural effusion or pneumothorax. Patient presently on s/c heparin, famotidine Recommend to continue incentive spirometry. - Patient Problems (1) Nicotine dependence Current Visit: Yes Status: Acute Qualifiers: Nicotine product type: cigarettes Substance use status: in withdrawal Qualified Code(s): F17.213 - Nicotine dependence, cigarettes, with withdrawal Plan to address problem: Counseled patient to stop smoking. (2) SOB (shortness of breath) Current Visit: No Status: Acute Plan to address problem: Improved. Patient resting on room air at this time. O2 saturation 100%. (3) Atrial fibrillation Current Visit: Yes Status: Acute Plan to address problem: Management as per cardiology. (4) CHF (congestive heart failure) Current Visit: No Status: Acute Qualifiers: Heart failure chronicity: chronic Plan to address problem: Management as per cardiology. (5) Small bowel obstruction Current Visit: Yes Status: Acute Plan to address problem: On 01/06/21 the patient underwent an exploratory laparotomy, jejunal colonic anastomosis, and segmental small bowel resection. Management as per surgery. Continue incentive spirometry (6) Small intestinal gangrene Current Visit: Yes Status: Acute Plan to address problem: On 01/06/21 the patient underwent an exploratory laparotomy, jejunal colonic anastomosis, and segmental small bowel resection. Management as per surgery. Continue incentive spirometry (7) Accelerated hypertension Current Visit: No Status: Acute Plan to address problem: Management as per primary care. (8) Acute on chronic kidney disease, stage 3 Current Visit: No Status: Acute Plan to address problem: Management as per nephrology. Subjective Date of service: 02/07/21 Principal diagnosis: Ac hypoxemic resp failure; Severe Sepsis; Peritonitis; Acute SBO; ESRD; CHF Interval history: This is a 60 YO Male with ESRD on PD, GERD, Crohn's Disease, Nicotine Dependence , HTN, Systolic CHF(EF 35%) who presented to the emergency department on 12/22 with complaints of abdominal pain which began shortly after eating fast food rated 10/10 which is periumbilical, constant, associated with fever, nausea and multiple sites of vomiting and self-reported inability to undergo PD. In the emergency room patient underwent a CT scan of the abdomen/pelvis which revealed evidence of partial small bowel obstruction, symptoms were consistent with bacterial peritonitis. Patient was admitted to the hospital service with sepsis, peritonitis, and small bowel obstruction with consults to general surgery, nephrology, infectious disease and [facility]. On 01/06/21 the patient underwent an exploratory laparotomy, jejunal colonic anastomosis, and segmental small bowel resection. ABG's (01/07/21): pH 7.345 pH POC ABG pCO2 41.4 mmHg ABG pCO2 40.3 mm Hg POC ABG pO2 94.5 mmHg ABG pO2 67.4 mm Hg POC ABG HCO3 22.7 ABG O2 Saturation 94.3 % Patient sleeping on room air. O2 saturation 100%. No acute respiratory distress. Patient afebrile. No leukocytosis. Blood pressure 131/71. Chest x-ray 01/03/21 reported There is decreased inspiration compared to y esterday's exam. Hazy opacity in the right perihilar region and larger area of infiltration in the left lower lung appears stable given differences in the level of inspiration. No large pleural effusion or pneumothorax. Patient presently on s/c heparin, famotidine Recommend to continue incentive spirometry. Objective Vital Signs - 12hr 02/07/21 02/07/21 02/07/21 04:42 06:53 07:19 Temperature 98.9 F 98.7 F Pulse Rate 98 H 83 Respiratory 18 16 Rate Respiratory 17 Rate [Anterior Abdomen] Blood Pressure 127/64 Blood Pressure 126/56 [Right] O2 Sat by Pulse 97 97 Oximetry 02/07/21 02/07/21 10:08 11:10 Temperature 98.7 F Pulse Rate 79 79 Respiratory 16 Rate Respiratory Rate [Anterior Abdomen] Blood Pressure 131/55 131/55 Blood Pressure [Right] O2 Sat by Pulse 94 Oximetry Constitutional: no acute distress, asleep Eyes: non-icteric ENT: oropharynx moist Neck: supple, no lymphadenopathy, no JVD Effort: normal Ascultation: Bilateral: diminished breath sounds, rales, rhonchi Percussion: Bilateral: not dull Cardiovascular: regular rate and rhythm, other (S1,S2) Gastrointestinal: hypoactive bowel sounds, soft, non-tender, non-distended (protuberant), other (Midline abdominal incision; + PEG) Integumentary: other (Midline abdominal incision ) Extremities: no cyanosis, no edema, pulses normal, no ischemia or petechiae Neurologic: non-focal exam (grossly), pupils equal and round, CN II-XII normal Psychiatric: mood appropriate, affect normal CBC and BMP: 02/07/21 04:35 02/08/21 06:45 ABG, PT/INR, D-dimer: ABG ABG pH 7.345 pH Units (7.350-7.450) L 01/07/21 17:14 POC ABG pCO2 41.4 mmHg (32.0-48.0) 01/07/21 03:07 ABG pCO2 40.3 mm Hg 01/07/21 17:14 POC ABG pO2 94.5 mmHg (83-108) 01/07/21 03:07 ABG pO2 67.4 mm Hg (80.0-90.0) L 01/07/21 17:14 POC ABG HCO3 22.7 01/07/21 03:07 ABG O2 Saturation 94.3 % (95.0-99.0) L 05/15/21 17:14 PT/INR, D-dimer PT 16.9 Sec. (12.2-14.9) H 01/01/21 12:45 INR 1.39 (0.87-1.13) H 01/01/21 12:45 Abnormal lab findings: Abnormal Labs 12/22/20 12/22/20 12/22/20 14:38 14:38 14:38 WBC RBC Hgb 11.2 L Hct 35.0 L MCV MCHC RDW 16.7 H Plt Count Lymph % (Auto) [place] % (Auto) Eos % (Auto) Lymph # (Auto) [place] # (Auto) Eos # (Auto) Seg Neutrophils % Seg Neuts % (Manual) 94.0 H Lymphocytes % (Manual) 5.0 L Monocytes % (Manual) Seg Neutrophils # Seg Neutrophils # Man Lymphocytes # (Manual) 0.3 L Monocytes # (Manual) PT INR ABG pH POC ABG pCO2 POC ABG pO2 ABG pO2 ABG HCO3 ABG O2 Saturation ABG Base Excess ABG Hemoglobin ABG Oxyhemoglobin ABG Sodium ABG Potassium ABG Chloride ABG Glucose Oxyhemoglobin Sodium Potassium Chloride Carbon Dioxide BUN 58 H Creatinine 13.2 H Glucose 113 H POC Glucose Lactic Acid 3.60 H* Calcium Phosphorus Magnesium Total Bilirubin 1.30 H AST ALT Alkaline Phosphatase 155 H Total Protein Albumin Triglycerides Arterial Blood Glucose Arterial Blood Ionized Calcium Digoxin Crossmatch 12/22/20 12/22/20 12/23/20 16:26 17:47 05:22 WBC RBC Hgb Hct MCV MCHC RDW Plt Count Lymph % (Auto) [place] % (Auto) Eos % (Auto) Lymph # (Auto) [place] # (Auto) Eos # (Auto) Seg Neutrophils % Seg Neuts % (Manual) Lymphocytes % (Manual) Monocytes % (Manual) Seg Neutrophils # Seg Neutrophils # Man Lymphocytes # (Manual) Monocytes # (Manual) PT INR ABG pH POC ABG pCO2 POC ABG pO2 ABG pO2 ABG HCO3 ABG O2 Saturation ABG Base Excess ABG Hemoglobin ABG Oxyhemoglobin ABG Sodium ABG Potassium ABG Chloride ABG Glucose Oxyhemoglobin Sodium Potassium Chloride Carbon Dioxide BUN Creatinine Glucose POC Glucose Lactic Acid 2.80 H* 3.10 H* 2.30 H* Calcium Phosphorus Magnesium Total Bilirubin AST ALT Alkaline Phosphatase Total Protein Albumin Triglycerides Arterial Blood Glucose Arterial Blood Ionized Calcium Digoxin Crossmatch 12/23/20 12/23/20 12/23/20 05:22 05:22 06:35 WBC 12.1 H RBC Hgb 11.0 L Hct 33.7 L MCV MCHC RDW 16.9 H Plt Count Lymph % (Auto) [place] % (Auto) Eos % (Auto) Lymph # (Auto) [place] # (Auto) Eos # (Auto) Seg Neutrophils % Seg Neuts % (Manual) 93.0 H Lymphocytes % (Manual) 1.0 L Monocytes % (Manual) Seg Neutrophils # Seg Neutrophils # Man 11.3 H Lymphocytes # (Manual) 0.1 L Monocytes # (Manual) PT INR ABG pH POC ABG pCO2 POC ABG pO2 ABG pO2 ABG HCO3 ABG O2 Saturation ABG Base Excess ABG Hemoglobin ABG Oxyhemoglobin ABG Sodium ABG Potassium ABG Chloride ABG Glucose Oxyhemoglobin Sodium Potassium 5.7 H D Chloride Carbon Dioxide BUN 73 H Creatinine 14.2 H Glucose POC Glucose Lactic Acid 2.30 H* Calcium 7.9 L Phosphorus Magnesium Total Bilirubin 1.40 H AST 119 H ALT 130 H Alkaline Phosphatase 183 H Total Protein 6.1 L Albumin 3.6 L Triglycerides Arterial Blood Glucose Arterial Blood Ionized Calcium Digoxin Crossmatch 12/23/20 12/23/20 12/23/20 11:40 13:53 16:47 WBC RBC Hgb 10.0 L Hct 30.4 L MCV MCHC RDW Plt Count Lymph % (Auto) [place] % (Auto) Eos % (Auto) Lymph # (Auto) [place] # (Auto) Eos # (Auto) Seg Neutrophils % Seg Neuts % (Manual) Lymphocytes % (Manual) Monocytes % (Manual) Seg Neutrophils # Seg Neutrophils # Man Lymphocytes # (Manual) Monocytes # (Manual) PT INR ABG pH POC ABG pCO2 POC ABG pO2 137.5 H ABG pO2 ABG HCO3 ABG O2 Saturation ABG Base Excess ABG Hemoglobin 9.7 L ABG Oxyhemoglobin ABG Sodium 134.1 L ABG Potassium 6.6 H ABG Chloride ABG Glucose 103 H Oxyhemoglobin Sodium Potassium Chloride Carbon Dioxide BUN Creatinine Glucose POC Glucose Lactic Acid Calcium Phosphorus Magnesium Total Bilirubin AST ALT Alkaline Phosphatase Total Protein Albumin Triglycerides Arterial Blood Glucose 103 H Arterial Blood Ionized Calcium 3.8 L Digoxin Crossmatch See Detail 12/23/20 12/23/20 12/24/20 20:35 20:40 01:20 WBC RBC Hgb Hct MCV MCHC RDW Plt Count Lymph % (Auto) [place] % (Auto) Eos % (Auto) Lymph # (Auto) [place] # (Auto) Eos # (Auto) Seg Neutrophils % Seg Neuts % (Manual) Lymphocytes % (Manual) Monocytes % (Manual) Seg Neutrophils # Seg Neutrophils # Man Lymphocytes # (Manual) Monocytes # (Manual) PT INR ABG pH 7.252 L POC ABG pCO2 POC ABG pO2 ABG pO2 50.1 L ABG HCO3 ABG O2 Saturation 81.1 L ABG Base Excess -5.9 L ABG Hemoglobin 12.1 L ABG Oxyhemoglobin ABG Sodium ABG Potassium ABG Chloride ABG Glucose Oxyhemoglobin 78.6 L Sodium 134 L Potassium 6.9 H* D 6.3 H* Chloride Carbon Dioxide 18 L 20 L BUN 87 H 91 H Creatinine 15.3 H 15.3 H Glucose 103 H POC Glucose Lactic Acid Calcium 6.9 L 7.5 L Phosphorus Magnesium Total Bilirubin AST ALT Alkaline Phosphatase Total Protein Albumin Triglycerides Arterial Blood Glucose Arterial Blood Ionized Calcium Digoxin Crossmatch 12/24/20 12/24/20 12/24/20 04:00 10:29 10:29 WBC RBC 3.49 L Hgb 10.5 L Hct 31.2 L MCV MCHC RDW 17.5 H Plt Count 124 L Lymph % (Auto) 3.7 L [place] % (Auto) 9.8 H Eos % (Auto) Lymph # (Auto) 0.2 L [place] # (Auto) Eos # (Auto) Seg Neutrophils % 85.9 H Seg Neuts % (Manual) Lymphocytes % (Manual) Monocytes % (Manual) Seg Neutrophils # Seg Neutrophils # Man Lymphocytes # (Manual) Monocytes # (Manual) PT INR ABG pH POC ABG pCO2 28.1 L POC ABG pO2 ABG pO2 ABG HCO3 ABG O2 Saturation ABG Base Excess ABG Hemoglobin ABG Oxyhemoglobin ABG Sodium 133.9 L ABG Potassium 5.3 H ABG Chloride 108.0 H ABG Glucose Oxyhemoglobin Sodium Potassium 5.6 H Chloride Carbon Dioxide 19 L BUN 99 H Creatinine 16.9 H Glucose 52 L POC Glucose Lactic Acid Calcium 7.6 L Phosphorus Magnesium Total Bilirubin 3.50 H AST 67 H ALT 71 H Alkaline Phosphatase Total Protein 3.5 L D Albumin 2.1 L Triglycerides Arterial Blood Glucose Arterial Blood Ionized Calcium 4.0 L Digoxin Crossmatch 12/25/20 12/25/20 12/25/20 03:33 04:00 04:00 WBC 3.8 L RBC 2.90 L Hgb 8.6 L Hct 25.7 L MCV MCHC RDW 16.7 H Plt Count 113 L Lymph % (Auto) [place] % (Auto) Eos % (Auto) Lymph # (Auto) [place] # (Auto) Eos # (Auto) Seg Neutrophils % Seg Neuts % (Manual) Lymphocytes % (Manual) Monocytes % (Manual) Seg Neutrophils # Seg Neutrophils # Man Lymphocytes # (Manual) Monocytes # (Manual) PT INR ABG pH 7.544 H POC ABG pCO2 28.2 L POC ABG pO2 62.8 L ABG pO2 ABG HCO3 ABG O2 Saturation ABG Base Excess ABG Hemoglobin 9.3 L ABG Oxyhemoglobin 93.0 L ABG Sodium 130.3 L ABG Potassium ABG Chloride ABG Glucose 97 H Oxyhemoglobin Sodium Potassium Chloride Carbon Dioxide BUN 62 H Creatinine 11.4 H Glucose POC Glucose Lactic Acid Calcium 7.7 L Phosphorus 5.00 H Magnesium Total Bilirubin AST ALT Alkaline Phosphatase Total Protein Albumin Triglycerides Arterial Blood Glucose 97 H Arterial Blood Ionized Calcium 3.9 L Digoxin Crossmatch 12/26/20 12/26/20 12/27/20 04:46 Unknown 03:40 WBC 4.1 L RBC 2.61 L Hgb 7.8 L Hct 23.4 L MCV MCHC RDW 17.1 H Plt Count 119 L Lymph % (Auto) 5.3 L [place] % (Auto) 10.6 H Eos % (Auto) Lymph # (Auto) 0.2 L [place] # (Auto) Eos # (Auto) Seg Neutrophils % 78.8 H Seg Neuts % (Manual) Lymphocytes % (Manual) Monocytes % (Manual) Seg Neutrophils # Seg Neutrophils # Man Lymphocytes # (Manual) Monocytes # (Manual) PT INR ABG pH 7.333 L 7.332 L POC ABG pCO2 POC ABG pO2 ABG pO2 ABG HCO3 26.9 H ABG O2 Saturation ABG Base Excess -2.4 L ABG Hemoglobin 6.8 L 7.2 L ABG Oxyhemoglobin ABG Sodium ABG Potassium ABG Chloride ABG Glucose Oxyhemoglobin 93.0 L 93.1 L Sodium Potassium Chloride Carbon Dioxide BUN Creatinine Glucose POC Glucose Lactic Acid Calcium Phosphorus Magnesium Total Bilirubin AST ALT Alkaline Phosphatase Total Protein Albumin Triglycerides Arterial Blood Glucose Arterial Blood Ionized Calcium Digoxin Crossmatch 12/27/20 12/27/20 12/27/20 06:40 06:40 11:22 WBC 4.4 L RBC 2.49 L Hgb 7.4 L Hct 22.4 L MCV MCHC RDW 17.1 H Plt Count 111 L Lymph % (Auto) 6.7 L [place] % (Auto) 12.6 H Eos % (Auto) Lymph # (Auto) 0.3 L [place] # (Auto) Eos # (Auto) Seg Neutrophils % 77.6 H Seg Neuts % (Manual) Lymphocytes % (Manual) Monocytes % (Manual) Seg Neutrophils # Seg Neutrophils # Man Lymphocytes # (Manual) Monocytes # (Manual) PT INR ABG pH POC ABG pCO2 POC ABG pO2 ABG pO2 ABG HCO3 ABG O2 Saturation ABG Base Excess ABG Hemoglobin ABG Oxyhemoglobin ABG Sodium ABG Potassium ABG Chloride ABG Glucose Oxyhemoglobin Sodium Potassium Chloride Carbon Dioxide BUN 64 H Creatinine 9.8 H Glucose 147 H POC Glucose 134 H Lactic Acid Calcium 8.3 L Phosphorus 5.00 H Magnesium Total Bilirubin 3.70 H AST 72 H ALT Alkaline Phosphatase 142 H Total Protein 5.1 L D Albumin 2.9 L Triglycerides Arterial Blood Glucose Arterial Blood Ionized Calcium Digoxin Crossmatch 12/27/20 12/27/20 12/28/20 17:29 23:31 03:09 WBC RBC Hgb Hct MCV MCHC RDW Plt Count Lymph % (Auto) [place] % (Auto) Eos % (Auto) Lymph # (Auto) [place] # (Auto) Eos # (Auto) Seg Neutrophils % Seg Neuts % (Manual) Lymphocytes % (Manual) Monocytes % (Manual) Seg Neutrophils # Seg Neutrophils # Man Lymphocytes # (Manual) Monocytes # (Manual) PT INR ABG pH 7.474 H POC ABG pCO2 POC ABG pO2 ABG pO2 ABG HCO3 ABG O2 Saturation ABG Base Excess ABG Hemoglobin 7.8 L ABG Oxyhemoglobin ABG Sodium ABG Potassium ABG Chloride ABG Glucose Oxyhemoglobin Sodium Potassium Chloride Carbon Dioxide BUN Creatinine Glucose POC Glucose 121 H 131 H Lactic Acid Calcium Phosphorus Magnesium Total Bilirubin AST ALT Alkaline Phosphatase Total Protein Albumin Triglycerides Arterial Blood Glucose Arterial Blood Ionized Calcium Digoxin Crossmatch 0512/28/20 12/28/20 05:37 05:40 05:40 WBC 4.3 L RBC 2.40 L Hgb 7.2 L Hct 21.5 L MCV MCHC RDW 17.4 H Plt Count 112 L Lymph % (Auto) 6.5 L [place] % (Auto) 16.7 H Eos % (Auto) Lymph # (Auto) 0.3 L [place] # (Auto) Eos # (Auto) Seg Neutrophils % 71.1 H Seg Neuts % (Manual) Lymphocytes % (Manual) Monocytes % (Manual) Seg Neutrophils # Seg Neutrophils # Man Lymphocytes # (Manual) Monocytes # (Manual) PT INR ABG pH POC ABG pCO2 POC ABG pO2 ABG pO2 ABG HCO3 ABG O2 Saturation ABG Base Excess ABG Hemoglobin ABG Oxyhemoglobin ABG Sodium ABG Potassium ABG Chloride ABG Glucose Oxyhemoglobin Sodium Potassium Chloride Carbon Dioxide BUN 85 H Creatinine 11.5 H Glucose 132 H POC Glucose 121 H Lactic Acid Calcium 8.2 L Phosphorus Magnesium 2.40 H Total Bilirubin 3.80 H AST 70 H ALT Alkaline Phosphatase 176 H Total Protein 5.0 L Albumin 2.9 L Triglycerides Arterial Blood Glucose Arterial Blood Ionized Calcium Digoxin Crossmatch 12/28/20 12/28/20 12/28/20 11:34 15:00 17:35 WBC RBC Hgb Hct MCV MCHC RDW Plt Count Lymph % (Auto) [place] % (Auto) Eos % (Auto) Lymph # (Auto) [place] # (Auto) Eos # (Auto) Seg Neutrophils % Seg Neuts % (Manual) Lymphocytes % (Manual) Monocytes % (Manual) Seg Neutrophils # Seg Neutrophils # Man Lymphocytes # (Manual) Monocytes # (Manual) PT INR ABG pH 7.461 H POC ABG pCO2 POC ABG pO2 72.2 L ABG pO2 ABG HCO3 ABG O2 Saturation ABG Base Excess ABG Hemoglobin 8.2 L ABG Oxyhemoglobin 93.6 L ABG Sodium 134.1 L ABG Potassium 3.2 L ABG Chloride ABG Glucose 135 H Oxyhemoglobin Sodium Potassium Chloride Carbon Dioxide BUN Creatinine Glucose POC Glucose 137 H 144 H Lactic Acid Calcium Phosphorus Magnesium Total Bilirubin AST ALT Alkaline Phosphatase Total Protein Albumin Triglycerides Arterial Blood Glucose 135 H Arterial Blood Ionized Calcium 4.4 L Digoxin Crossmatch 05/05/21 05/05/21 05/06/21 19:44 Unknown 00:21 WBC RBC Hgb Hct MCV MCHC RDW Plt Count Lymph % (Auto) [place] % (Auto) Eos % (Auto) Lymph # (Auto) [place] # (Auto) Eos # (Auto) Seg Neutrophils % Seg Neuts % (Manual) Lymphocytes % (Manual) Monocytes % (Manual) Seg Neutrophils # Seg Neutrophils # Man Lymphocytes # (Manual) Monocytes # (Manual) PT INR ABG pH 7.474 H POC ABG pCO2 POC ABG pO2 ABG pO2 ABG HCO3 ABG O2 Saturation ABG Base Excess ABG Hemoglobin 7.8 L ABG Oxyhemoglobin ABG Sodium 133.2 L ABG Potassium ABG Chloride ABG Glucose 139 H Oxyhemoglobin Sodium 135 L Potassium Chloride 96.6 L Carbon Dioxide BUN 47 H Creatinine 7.4 H Glucose 130 H POC Glucose 142 H Lactic Acid Calcium 8.3 L Phosphorus Magnesium Total Bilirubin AST ALT Alkaline Phosphatase Total Protein Albumin Triglycerides Arterial Blood Glucose 139 H Arterial Blood Ionized Calcium 4.3 L Digoxin Crossmatch 12/29/20 12/29/20 12/29/20 05:16 05:16 05:26 WBC RBC 2.53 L Hgb 7.7 L Hct 22.8 L MCV MCHC RDW 17.0 H Plt Count 130 L Lymph % (Auto) [place] % (Auto) Eos % (Auto) Lymph # (Auto) [place] # (Auto) Eos # (Auto) Seg Neutrophils % Seg Neuts % (Manual) 79.0 H Lymphocytes % (Manual) 9.0 L Monocytes % (Manual) Seg Neutrophils # Seg Neutrophils # Man Lymphocytes # (Manual) 0.6 L Monocytes # (Manual) PT INR ABG pH POC ABG pCO2 POC ABG pO2 ABG pO2 ABG HCO3 ABG O2 Saturation ABG Base Excess ABG Hemoglobin ABG Oxyhemoglobin ABG Sodium ABG Potassium ABG Chloride ABG Glucose Oxyhemoglobin Sodium Potassium 3.4 L Chloride 96.6 L Carbon Dioxide BUN 59 H Creatinine 8.3 H Glucose 127 H POC Glucose 141 H Lactic Acid Calcium 8.2 L Phosphorus Magnesium Total Bilirubin 3.00 H AST 88 H ALT Alkaline Phosphatase 188 H Total Protein 5.1 L Albumin 2.8 L Triglycerides Arterial Blood Glucose Arterial Blood Ionized Calcium Digoxin Crossmatch 12/29/20 12/29/20 12/29/20 11:33 17:29 23:22 WBC RBC Hgb Hct MCV MCHC RDW Plt Count Lymph % (Auto) [place] % (Auto) Eos % (Auto) Lymph # (Auto) [place] # (Auto) Eos # (Auto) Seg Neutrophils % Seg Neuts % (Manual) Lymphocytes % (Manual) Monocytes % (Manual) Seg Neutrophils # Seg Neutrophils # Man Lymphocytes # (Manual) Monocytes # (Manual) PT INR ABG pH POC ABG pCO2 POC ABG pO2 ABG pO2 ABG HCO3 ABG O2 Saturation ABG Base Excess ABG Hemoglobin ABG Oxyhemoglobin ABG Sodium ABG Potassium ABG Chloride ABG Glucose Oxyhemoglobin Sodium Potassium Chloride Carbon Dioxide BUN Creatinine Glucose POC Glucose 144 H 130 H 117 H Lactic Acid Calcium Phosphorus Magnesium Total Bilirubin AST ALT Alkaline Phosphatase Total Protein Albumin Triglycerides Arterial Blood Glucose Arterial Blood Ionized Calcium Digoxin Crossmatch 12/30/20 12/30/20 12/30/20 05:23 08:15 09:00 WBC RBC Hgb Hct MCV MCHC RDW Plt Count Lymph % (Auto) [place] % (Auto) Eos % (Auto) Lymph # (Auto) [place] # (Auto) Eos # (Auto) Seg Neutrophils % Seg Neuts % (Manual) Lymphocytes % (Manual) Monocytes % (Manual) Seg Neutrophils # Seg Neutrophils # Man Lymphocytes # (Manual) Monocytes # (Manual) PT INR ABG pH POC ABG pCO2 POC ABG pO2 ABG pO2 ABG HCO3 ABG O2 Saturation ABG Base Excess ABG Hemoglobin ABG Oxyhemoglobin ABG Sodium ABG Potassium ABG Chloride ABG Glucose Oxyhemoglobin Sodium 135 L Potassium Chloride 95.9 L Carbon Dioxide BUN 85 H Creatinine 10.6 H Glucose 128 H POC Glucose 135 H 127 H Lactic Acid Calcium 8.3 L Phosphorus Magnesium Total Bilirubin 2.40 H AST 85 H ALT Alkaline Phosphatase 216 H Total Protein 5.3 L Albumin 2.6 L Triglycerides 155 H Arterial Blood Glucose Arterial Blood Ionized Calcium Digoxin Crossmatch 12/30/20 12/30/20 12/30/20 09:00 11:53 15:49 WBC RBC 2.61 L Hgb 7.8 L Hct 23.7 L MCV MCHC RDW 17.3 H Plt Count Lymph % (Auto) [place] % (Auto) Eos % (Auto) Lymph # (Auto) [place] # (Auto) Eos # (Auto) Seg Neutrophils % Seg Neuts % (Manual) Lymphocytes % (Manual) Monocytes % (Manual) Seg Neutrophils # Seg Neutrophils # Man Lymphocytes # (Manual) Monocytes # (Manual) PT INR ABG pH POC ABG pCO2 POC ABG pO2 ABG pO2 ABG HCO3 ABG O2 Saturation ABG Base Excess ABG Hemoglobin ABG Oxyhemoglobin ABG Sodium ABG Potassium ABG Chloride ABG Glucose Oxyhemoglobin Sodium Potassium Chloride Carbon Dioxide BUN Creatinine Glucose POC Glucose 155 H 146 H Lactic Acid Calcium Phosphorus Magnesium Total Bilirubin AST ALT Alkaline Phosphatase Total Protein Albumin Triglycerides Arterial Blood Glucose Arterial Blood Ionized Calcium Digoxin Crossmatch 12/30/20 12/30/20 12/31/20 17:53 23:45 03:56 WBC RBC Hgb Hct MCV MCHC RDW Plt Count Lymph % (Auto) [place] % (Auto) Eos % (Auto) Lymph # (Auto) [place] # (Auto) Eos # (Auto) Seg Neutrophils % Seg Neuts % (Manual) Lymphocytes % (Manual) Monocytes % (Manual) Seg Neutrophils # Seg Neutrophils # Man Lymphocytes # (Manual) Monocytes # (Manual) PT INR ABG pH POC ABG pCO2 POC ABG pO2 49.4 L ABG pO2 ABG HCO3 ABG O2 Saturation ABG Base Excess ABG Hemoglobin 10.3 L ABG Oxyhemoglobin 84.2 L ABG Sodium 133.1 L ABG Potassium ABG Chloride ABG Glucose 173 H Oxyhemoglobin Sodium Potassium Chloride Carbon Dioxide BUN Creatinine Glucose POC Glucose 139 H 173 H Lactic Acid Calcium Phosphorus Magnesium Total Bilirubin AST ALT Alkaline Phosphatase Total Protein Albumin Triglycerides Arterial Blood Glucose 173 H Arterial Blood Ionized Calcium Digoxin Crossmatch 12/31/20 12/31/20 12/31/20 05:07 06:51 06:51 WBC 20.3 H RBC 3.32 L Hgb 9.8 L Hct 30.3 L D MCV MCHC RDW 17.3 H Plt Count Lymph % (Auto) [place] % (Auto) Eos % (Auto) Lymph # (Auto) [place] # (Auto) Eos # (Auto) Seg Neutrophils % Seg Neuts % (Manual) 87.0 H Lymphocytes % (Manual) 10.0 L Monocytes % (Manual) Seg Neutrophils # Seg Neutrophils # Man 17.7 H Lymphocytes # (Manual) Monocytes # (Manual) PT INR ABG pH POC ABG pCO2 POC ABG pO2 ABG pO2 ABG HCO3 ABG O2 Saturation ABG Base Excess ABG Hemoglobin ABG Oxyhemoglobin ABG Sodium ABG Potassium ABG Chloride ABG Glucose Oxyhemoglobin Sodium Potassium 5.2 H D Chloride Carbon Dioxide BUN 62 H Creatinine 8.4 H Glucose 116 H POC Glucose 120 H Lactic Acid Calcium Phosphorus Magnesium 1.60 L Total Bilirubin AST ALT Alkaline Phosphatase Total Protein Albumin Triglycerides Arterial Blood Glucose Arterial Blood Ionized Calcium Digoxin Crossmatch 12/31/20 12/31/20 12/31/20 09:38 12:19 12:22 WBC RBC Hgb Hct MCV MCHC RDW Plt Count Lymph % (Auto) [place] % (Auto) Eos % (Auto) Lymph # (Auto) [place] # (Auto) Eos # (Auto) Seg Neutrophils % Seg Neuts % (Manual) Lymphocytes % (Manual) Monocytes % (Manual) Seg Neutrophils # Seg Neutrophils # Man Lymphocytes # (Manual) Monocytes # (Manual) PT INR ABG pH POC ABG pCO2 POC ABG pO2 ABG pO2 354.0 H ABG HCO3 ABG O2 Saturation 99.6 H ABG Base Excess ABG Hemoglobin 9.1 L ABG Oxyhemoglobin ABG Sodium ABG Potassium ABG Chloride ABG Glucose Oxyhemoglobin Sodium Potassium 5.2 H Chloride Carbon Dioxide BUN Creatinine Glucose POC Glucose 132 H Lactic Acid Calcium Phosphorus Magnesium Total Bilirubin AST ALT Alkaline Phosphatase Total Protein Albumin Triglycerides Arterial Blood Glucose Arterial Blood Ionized Calcium Digoxin Crossmatch 12/31/20 01/01/21 01/01/21 23:23 03:03 05:04 WBC RBC Hgb Hct MCV MCHC RDW Plt Count Lymph % (Auto) [place] % (Auto) Eos % (Auto) Lymph # (Auto) [place] # (Auto) Eos # (Auto) Seg Neutrophils % Seg Neuts % (Manual) Lymphocytes % (Manual) Monocytes % (Manual) Seg Neutrophils # Seg Neutrophils # Man Lymphocytes # (Manual) Monocytes # (Manual) PT INR ABG pH POC ABG pCO2 POC ABG pO2 79.6 L ABG pO2 ABG HCO3 ABG O2 Saturation ABG Base Excess ABG Hemoglobin 9.2 L ABG Oxyhemoglobin ABG Sodium 131.6 L ABG Potassium 5.8 H ABG Chloride ABG Glucose 177 H Oxyhemoglobin Sodium Potassium Chloride Carbon Dioxide BUN Creatinine Glucose POC Glucose 174 H 167 H Lactic Acid Calcium Phosphorus Magnesium Total Bilirubin AST ALT Alkaline Phosphatase Total Protein Albumin Triglycerides Arterial Blood Glucose 177 H Arterial Blood Ionized Calcium Digoxin Crossmatch 01/01/21 01/01/21 01/01/21 07:31 07:31 11:31 WBC 26.1 H RBC 2.95 L Hgb 8.6 L Hct 27.1 L MCV MCHC RDW 18.2 H Plt Count Lymph % (Auto) [place] % (Auto) Eos % (Auto) Lymph # (Auto) [place] # (Auto) Eos # (Auto) Seg Neutrophils % Seg Neuts % (Manual) 96.0 H Lymphocytes % (Manual) 4.0 L Monocytes % (Manual) Seg Neutrophils # Seg Neutrophils # Man 25.1 H Lymphocytes # (Manual) 1.0 L Monocytes # (Manual) PT INR ABG pH POC ABG pCO2 POC ABG pO2 ABG pO2 ABG HCO3 ABG O2 Saturation ABG Base Excess ABG Hemoglobin ABG Oxyhemoglobin ABG Sodium ABG Potassium ABG Chloride ABG Glucose Oxyhemoglobin Sodium Potassium 6.0 H Chloride Carbon Dioxide 21 L BUN 89 H Creatinine 10.5 H Glucose 179 H POC Glucose Lactic Acid Calcium Phosphorus Magnesium Total Bilirubin AST ALT Alkaline Phosphatase Total Protein Albumin Triglycerides Arterial Blood Glucose Arterial Blood Ionized Calcium Digoxin Crossmatch See Detail 01/01/21 01/01/21 01/01/21 11:51 12:45 16:52 WBC RBC Hgb Hct MCV MCHC RDW Plt Count Lymph % (Auto) [place] % (Auto) Eos % (Auto) Lymph # (Auto) [place] # (Auto) Eos # (Auto) Seg Neutrophils % Seg Neuts % (Manual) Lymphocytes % (Manual) Monocytes % (Manual) Seg Neutrophils # Seg Neutrophils # Man Lymphocytes # (Manual) Monocytes # (Manual) PT 16.9 H INR 1.39 H ABG pH POC ABG pCO2 POC ABG pO2 ABG pO2 ABG HCO3 ABG O2 Saturation ABG Base Excess ABG Hemoglobin ABG Oxyhemoglobin ABG Sodium ABG Potassium ABG Chloride ABG Glucose Oxyhemoglobin Sodium Potassium Chloride Carbon Dioxide BUN Creatinine Glucose POC Glucose 157 H 177 H Lactic Acid Calcium Phosphorus Magnesium Total Bilirubin AST ALT Alkaline Phosphatase Total Protein Albumin Triglycerides Arterial Blood Glucose Arterial Blood Ionized Calcium Digoxin Crossmatch 01/01/21 01/01/21 01/01/21 17:58 17:58 20:12 WBC 26.9 H RBC 3.14 L Hgb 9.3 L Hct 29.6 L MCV MCHC RDW 17.5 H Plt Count Lymph % (Auto) [place] % (Auto) Eos % (Auto) Lymph # (Auto) [place] # (Auto) Eos # (Auto) Seg Neutrophils % Seg Neuts % (Manual) 84.0 H Lymphocytes % (Manual) 4.0 L Monocytes % (Manual) 12.0 H Seg Neutrophils # Seg Neutrophils # Man 22.6 H Lymphocytes # (Manual) 1.1 L Monocytes # (Manual) 3.2 H PT INR ABG pH POC ABG pCO2 POC ABG pO2 ABG pO2 ABG HCO3 ABG O2 Saturation ABG Base Excess ABG Hemoglobin ABG Oxyhemoglobin ABG Sodium ABG Potassium ABG Chloride ABG Glucose Oxyhemoglobin Sodium 136 L Potassium 6.2 H* Chloride Carbon Dioxide 21 L BUN 92 H Creatinine 10.8 H Glucose 171 H POC Glucose 288 H Lactic Acid Calcium Phosphorus Magnesium Total Bilirubin 2.10 H AST 223 H ALT 100 H Alkaline Phosphatase 206 H Total Protein 4.8 L Albumin 1.9 L Triglycerides Arterial Blood Glucose Arterial Blood Ionized Calcium Digoxin Crossmatch 01/02/21 01/02/21 01/02/21 00:12 00:45 03:05 WBC RBC Hgb Hct MCV MCHC RDW Plt Count Lymph % (Auto) [place] % (Auto) Eos % (Auto) Lymph # (Auto) [place] # (Auto) Eos # (Auto) Seg Neutrophils % Seg Neuts % (Manual) Lymphocytes % (Manual) Monocytes % (Manual) Seg Neutrophils # Seg Neutrophils # Man Lymphocytes # (Manual) Monocytes # (Manual) PT INR ABG pH POC ABG pCO2 POC ABG pO2 81.8 L ABG pO2 ABG HCO3 ABG O2 Saturation ABG Base Excess ABG Hemoglobin 8.0 L ABG Oxyhemoglobin ABG Sodium 129.8 L ABG Potassium 5.4 H ABG Chloride ABG Glucose 257 H Oxyhemoglobin Sodium 136 L Potassium 5.8 H Chloride 96.6 L Carbon Dioxide BUN 95 H Creatinine 11.2 H Glucose 238 H POC Glucose 223 H Lactic Acid Calcium Phosphorus Magnesium Total Bilirubin AST ALT Alkaline Phosphatase Total Protein Albumin Triglycerides Arterial Blood Glucose 257 H Arterial Blood Ionized Calcium 4.0 L Digoxin Crossmatch 01/02/21 01/02/21 01/02/21 06:25 08:00 08:00 WBC 17.5 H RBC 2.31 L Hgb 6.7 L Hct 22.1 L D MCV 96 H MCHC 30 L RDW 18.4 H Plt Count Lymph % (Auto) [place] % (Auto) Eos % (Auto) Lymph # (Auto) [place] # (Auto) Eos # (Auto) Seg Neutrophils % Seg Neuts % (Manual) Lymphocytes % (Manual) Monocytes % (Manual) Seg Neutrophils # Seg Neutrophils # Man Lymphocytes # (Manual) Monocytes # (Manual) PT INR ABG pH POC ABG pCO2 POC ABG pO2 ABG pO2 ABG HCO3 ABG O2 Saturation ABG Base Excess ABG Hemoglobin ABG Oxyhemoglobin ABG Sodium ABG Potassium ABG Chloride ABG Glucose Oxyhemoglobin Sodium 134 L Potassium 5.3 H Chloride 92.9 L Carbon Dioxide BUN 101 H Creatinine 10.9 H Glucose 560 H* POC Glucose 239 H Lactic Acid Calcium 7.6 L Phosphorus 6.50 H Magnesium Total Bilirubin AST ALT Alkaline Phosphatase Total Protein Albumin Triglycerides Arterial Blood Glucose Arterial Blood Ionized Calcium Digoxin Crossmatch 01/02/21 01/02/21 01/02/21 11:26 15:00 17:57 WBC RBC Hgb Hct MCV MCHC RDW Plt Count Lymph % (Auto) [place] % (Auto) Eos % (Auto) Lymph # (Auto) [place] # (Auto) Eos # (Auto) Seg Neutrophils % Seg Neuts % (Manual) Lymphocytes % (Manual) Monocytes % (Manual) Seg Neutrophils # Seg Neutrophils # Man Lymphocytes # (Manual) Monocytes # (Manual) PT INR ABG pH POC ABG pCO2 POC ABG pO2 ABG pO2 ABG HCO3 ABG O2 Saturation ABG Base Excess ABG Hemoglobin ABG Oxyhemoglobin ABG Sodium ABG Potassium ABG Chloride ABG Glucose Oxyhemoglobin Sodium Potassium Chloride Carbon Dioxide BUN Creatinine Glucose 241 H POC Glucose 205 H 272 H Lactic Acid Calcium Phosphorus Magnesium Total Bilirubin AST ALT Alkaline Phosphatase Total Protein Albumin Triglycerides Arterial Blood Glucose Arterial Blood Ionized Calcium Digoxin Crossmatch 01/02/21 01/02/21 01/03/21 23:25 23:43 03:45 WBC RBC Hgb Hct MCV MCHC RDW Plt Count Lymph % (Auto) [place] % (Auto) Eos % (Auto) Lymph # (Auto) [place] # (Auto) Eos # (Auto) Seg Neutrophils % Seg Neuts % (Manual) Lymphocytes % (Manual) Monocytes % (Manual) Seg Neutrophils # Seg Neutrophils # Man Lymphocytes # (Manual) Monocytes # (Manual) PT INR ABG pH POC ABG pCO2 48.3 H POC ABG pO2 134.4 H 79.7 L ABG pO2 ABG HCO3 ABG O2 Saturation ABG Base Excess ABG Hemoglobin 7.7 L 8.6 L ABG Oxyhemoglobin ABG Sodium 131.8 L 130.4 L ABG Potassium ABG Chloride 97.0 L ABG Glucose 218 H 238 H Oxyhemoglobin Sodium Potassium Chloride Carbon Dioxide BUN Creatinine Glucose POC Glucose 218 H Lactic Acid Calcium Phosphorus Magnesium Total Bilirubin AST ALT Alkaline Phosphatase Total Protein Albumin Triglycerides Arterial Blood Glucose 218 H 238 H Arterial Blood Ionized Calcium 4.1 L 4.0 L Digoxin Crossmatch 01/03/21 01/03/21 01/03/21 04:37 04:37 05:39 WBC 15.2 H RBC 2.38 L Hgb 7.3 L Hct 21.6 L MCV MCHC RDW 16.6 H Plt Count Lymph % (Auto) [place] % (Auto) Eos % (Auto) Lymph # (Auto) [place] # (Auto) Eos # (Auto) Seg Neutrophils % Seg Neuts % (Manual) Lymphocytes % (Manual) Monocytes % (Manual) Seg Neutrophils # Seg Neutrophils # Man Lymphocytes # (Manual) Monocytes # (Manual) PT INR ABG pH POC ABG pCO2 POC ABG pO2 ABG pO2 ABG HCO3 ABG O2 Saturation ABG Base Excess ABG Hemoglobin ABG Oxyhemoglobin ABG Sodium ABG Potassium ABG Chloride ABG Glucose Oxyhemoglobin Sodium 136 L Potassium Chloride 94.5 L Carbon Dioxide BUN 69 H Creatinine 8.0 H Glucose 219 H POC Glucose 222 H Lactic Acid Calcium 7.8 L Phosphorus 4.80 H D Magnesium Total Bilirubin AST ALT Alkaline Phosphatase Total Protein Albumin Triglycerides Arterial Blood Glucose Arterial Blood Ionized Calcium Digoxin Crossmatch 01/03/21 01/03/21 01/03/21 11:29 18:49 23:37 WBC RBC Hgb Hct MCV MCHC RDW Plt Count Lymph % (Auto) [place] % (Auto) Eos % (Auto) Lymph # (Auto) [place] # (Auto) Eos # (Auto) Seg Neutrophils % Seg Neuts % (Manual) Lymphocytes % (Manual) Monocytes % (Manual) Seg Neutrophils # Seg Neutrophils # Man Lymphocytes # (Manual) Monocytes # (Manual) PT INR ABG pH POC ABG pCO2 POC ABG pO2 ABG pO2 ABG HCO3 ABG O2 Saturation ABG Base Excess ABG Hemoglobin ABG Oxyhemoglobin ABG Sodium ABG Potassium ABG Chloride ABG Glucose Oxyhemoglobin Sodium Potassium Chloride Carbon Dioxide BUN Creatinine Glucose POC Glucose 232 H 129 H 140 H Lactic Acid Calcium Phosphorus Magnesium Total Bilirubin AST ALT Alkaline Phosphatase Total Protein Albumin Triglycerides Arterial Blood Glucose Arterial Blood Ionized Calcium Digoxin Crossmatch 01/04/21 01/04/21 01/04/21 03:22 04:38 04:38 WBC 11.1 H RBC 2.89 L Hgb 8.9 L Hct 26.2 L MCV MCHC RDW 16.1 H Plt Count Lymph % (Auto) [place] % (Auto) Eos % (Auto) Lymph # (Auto) [place] # (Auto) Eos # (Auto) Seg Neutrophils % Seg Neuts % (Manual) Lymphocytes % (Manual) Monocytes % (Manual) Seg Neutrophils # Seg Neutrophils # Man Lymphocytes # (Manual) Monocytes # (Manual) PT INR ABG pH POC ABG pCO2 POC ABG pO2 82.3 L ABG pO2 ABG HCO3 ABG O2 Saturation ABG Base Excess ABG Hemoglobin 8.9 L ABG Oxyhemoglobin ABG Sodium 130.5 L ABG Potassium ABG Chloride ABG Glucose 124 H Oxyhemoglobin Sodium Potassium Chloride 95.5 L Carbon Dioxide BUN 87 H Creatinine 9.7 H Glucose 118 H POC Glucose Lactic Acid Calcium 7.7 L Phosphorus Magnesium Total Bilirubin AST ALT Alkaline Phosphatase Total Protein Albumin Triglycerides Arterial Blood Glucose 124 H Arterial Blood Ionized Calcium 3.5 L Digoxin Crossmatch 01/04/21 01/04/21 01/04/21 05:39 12:04 18:04 WBC RBC Hgb Hct MCV MCHC RDW Plt Count Lymph % (Auto) [place] % (Auto) Eos % (Auto) Lymph # (Auto) [place] # (Auto) Eos # (Auto) Seg Neutrophils % Seg Neuts % (Manual) Lymphocytes % (Manual) Monocytes % (Manual) Seg Neutrophils # Seg Neutrophils # Man Lymphocytes # (Manual) Monocytes # (Manual) PT INR ABG pH POC ABG pCO2 POC ABG pO2 ABG pO2 ABG HCO3 ABG O2 Saturation ABG Base Excess ABG Hemoglobin ABG Oxyhemoglobin ABG Sodium ABG Potassium ABG Chloride ABG Glucose Oxyhemoglobin Sodium Potassium Chloride Carbon Dioxide BUN Creatinine Glucose POC Glucose 134 H 125 H 131 H Lactic Acid Calcium Phosphorus Magnesium Total Bilirubin AST ALT Alkaline Phosphatase Total Protein Albumin Triglycerides Arterial Blood Glucose Arterial Blood Ionized Calcium Digoxin Crossmatch 01/04/21 01/05/21 01/05/21 23:41 03:23 04:49 WBC RBC Hgb Hct MCV MCHC RDW Plt Count Lymph % (Auto) [place] % (Auto) Eos % (Auto) Lymph # (Auto) [place] # (Auto) Eos # (Auto) Seg Neutrophils % Seg Neuts % (Manual) Lymphocytes % (Manual) Monocytes % (Manual) Seg Neutrophils # Seg Neutrophils # Man Lymphocytes # (Manual) Monocytes # (Manual) PT INR ABG pH POC ABG pCO2 POC ABG pO2 62.8 L ABG pO2 ABG HCO3 ABG O2 Saturation ABG Base Excess ABG Hemoglobin 9.5 L ABG Oxyhemoglobin 92.0 L ABG Sodium 130.1 L ABG Potassium ABG Chloride ABG Glucose 148 H Oxyhemoglobin Sodium Potassium Chloride 96.9 L Carbon Dioxide BUN 57 H Creatinine 6.7 H Glucose 135 H POC Glucose 132 H Lactic Acid Calcium 8.0 L Phosphorus Magnesium Total Bilirubin AST ALT Alkaline Phosphatase Total Protein Albumin Triglycerides Arterial Blood Glucose 148 H Arterial Blood Ionized Calcium 4.1 L Digoxin Crossmatch 01/05/21 01/05/21 01/05/21 05:04 11:48 12:39 WBC RBC 3.03 L Hgb 9.3 L Hct 27.6 L MCV MCHC RDW 16.5 H Plt Count Lymph % (Auto) [place] % (Auto) Eos % (Auto) Lymph # (Auto) [place] # (Auto) Eos # (Auto) Seg Neutrophils % Seg Neuts % (Manual) Lymphocytes % (Manual) Monocytes % (Manual) Seg Neutrophils # Seg Neutrophils # Man Lymphocytes # (Manual) Monocytes # (Manual) PT INR ABG pH POC ABG pCO2 POC ABG pO2 ABG pO2 ABG HCO3 ABG O2 Saturation ABG Base Excess ABG Hemoglobin ABG Oxyhemoglobin ABG Sodium ABG Potassium ABG Chloride ABG Glucose Oxyhemoglobin Sodium Potassium Chloride Carbon Dioxide BUN Creatinine Glucose POC Glucose 147 H 162 H Lactic Acid Calcium Phosphorus Magnesium Total Bilirubin AST ALT Alkaline Phosphatase Total Protein Albumin Triglycerides Arterial Blood Glucose Arterial Blood Ionized Calcium Digoxin Crossmatch 01/05/21 01/05/21 01/06/21 17:50 23:32 04:15 WBC RBC Hgb Hct MCV MCHC RDW Plt Count Lymph % (Auto) [place] % (Auto) Eos % (Auto) Lymph # (Auto) [place] # (Auto) Eos # (Auto) Seg Neutrophils % Seg Neuts % (Manual) Lymphocytes % (Manual) Monocytes % (Manual) Seg Neutrophils # Seg Neutrophils # Man Lymphocytes # (Manual) Monocytes # (Manual) PT INR ABG pH POC ABG pCO2 POC ABG pO2 ABG pO2 191.0 H ABG HCO3 ABG O2 Saturation 99.2 H ABG Base Excess ABG Hemoglobin 9.0 L ABG Oxyhemoglobin ABG Sodium ABG Potassium ABG Chloride ABG Glucose Oxyhemoglobin Sodium Potassium Chloride Carbon Dioxide BUN Creatinine Glucose POC Glucose 155 H 115 H Lactic Acid Calcium Phosphorus Magnesium Total Bilirubin AST ALT Alkaline Phosphatase Total Protein Albumin Triglycerides Arterial Blood Glucose Arterial Blood Ionized Calcium Digoxin Crossmatch 01/06/21 01/06/21 01/06/21 04:45 05:56 07:03 WBC RBC 2.95 L Hgb 9.1 L Hct 26.8 L MCV MCHC RDW 16.8 H Plt Count Lymph % (Auto) [place] % (Auto) Eos % (Auto) Lymph # (Auto) [place] # (Auto) Eos # (Auto) Seg Neutrophils % Seg Neuts % (Manual) Lymphocytes % (Manual) Monocytes % (Manual) Seg Neutrophils # Seg Neutrophils # Man Lymphocytes # (Manual) Monocytes # (Manual) PT INR ABG pH POC ABG pCO2 POC ABG pO2 ABG pO2 ABG HCO3 ABG O2 Saturation ABG Base Excess ABG Hemoglobin ABG Oxyhemoglobin ABG Sodium ABG Potassium ABG Chloride ABG Glucose Oxyhemoglobin Sodium 135 L Potassium Chloride 95.9 L Carbon Dioxide BUN 82 H Creatinine 8.7 H Glucose 127 H POC Glucose 136 H Lactic Acid Calcium 8.3 L Phosphorus Magnesium Total Bilirubin AST ALT Alkaline Phosphatase Total Protein Albumin Triglycerides Arterial Blood Glucose Arterial Blood Ionized Calcium Digoxin Crossmatch 01/06/21 01/06/21 01/06/21 07:10 11:04 13:38 WBC RBC Hgb Hct MCV MCHC RDW Plt Count Lymph % (Auto) [place] % (Auto) Eos % (Auto) Lymph # (Auto) [place] # (Auto) Eos # (Auto) Seg Neutrophils % Seg Neuts % (Manual) Lymphocytes % (Manual) Monocytes % (Manual) Seg Neutrophils # Seg Neutrophils # Man Lymphocytes # (Manual) Monocytes # (Manual) PT INR ABG pH POC ABG pCO2 POC ABG pO2 ABG pO2 ABG HCO3 ABG O2 Saturation ABG Base Excess ABG Hemoglobin ABG Oxyhemoglobin ABG Sodium ABG Potassium ABG Chloride ABG Glucose Oxyhemoglobin Sodium Potassium Chloride Carbon Dioxide BUN Creatinine Glucose POC Glucose 178 H 155 H Lactic Acid Calcium Phosphorus Magnesium Total Bilirubin AST ALT Alkaline Phosphatase Total Protein Albumin Triglycerides Arterial Blood Glucose Arterial Blood Ionized Calcium Digoxin Crossmatch See Detail 01/06/21 01/06/21 01/07/21 17:35 22:21 03:07 WBC RBC Hgb Hct MCV MCHC RDW Plt Count Lymph % (Auto) [place] % (Auto) Eos % (Auto) Lymph # (Auto) [place] # (Auto) Eos # (Auto) Seg Neutrophils % Seg Neuts % (Manual) Lymphocytes % (Manual) Monocytes % (Manual) Seg Neutrophils # Seg Neutrophils # Man Lymphocytes # (Manual) Monocytes # (Manual) PT INR ABG pH POC ABG pCO2 POC ABG pO2 ABG pO2 ABG HCO3 ABG O2 Saturation ABG Base Excess ABG Hemoglobin 11.9 L ABG Oxyhemoglobin ABG Sodium 135.6 L ABG Potassium ABG Chloride ABG Glucose 181 H Oxyhemoglobin Sodium Potassium Chloride Carbon Dioxide BUN Creatinine Glucose POC Glucose 138 H 202 H Lactic Acid Calcium Phosphorus Magnesium Total Bilirubin AST ALT Alkaline Phosphatase Total Protein Albumin Triglycerides Arterial Blood Glucose 181 H Arterial Blood Ionized Calcium 4.3 L Digoxin Crossmatch 01/07/21 01/07/21 01/07/21 04:50 05:21 08:37 WBC 12.4 H RBC Hgb 11.1 L Hct 33.3 L D MCV MCHC RDW 17.0 H Plt Count Lymph % (Auto) 3.2 L [place] % (Auto) 9.4 H Eos % (Auto) Lymph # (Auto) 0.4 L [place] # (Auto) 1.2 H Eos # (Auto) Seg Neutrophils % 86.6 H Seg Neuts % (Manual) Lymphocytes % (Manual) Monocytes % (Manual) Seg Neutrophils # 10.7 H Seg Neutrophils # Man Lymphocytes # (Manual) Monocytes # (Manual) PT INR ABG pH POC ABG pCO2 POC ABG pO2 ABG pO2 ABG HCO3 ABG O2 Saturation ABG Base Excess ABG Hemoglobin ABG Oxyhemoglobin ABG Sodium ABG Potassium ABG Chloride ABG Glucose Oxyhemoglobin Sodium Potassium Chloride Carbon Dioxide BUN 60 H Creatinine 6.3 H Glucose 154 H POC Glucose 177 H Lactic Acid Calcium 8.3 L Phosphorus Magnesium Total Bilirubin AST ALT Alkaline Phosphatase Total Protein Albumin Triglycerides Arterial Blood Glucose Arterial Blood Ionized Calcium Digoxin Crossmatch 05/15/21 05/15/21 05/15/21 11:21 12:19 17:11 WBC RBC Hgb Hct MCV MCHC RDW Plt Count Lymph % (Auto) [place] % (Auto) Eos % (Auto) Lymph # (Auto) [place] # (Auto) Eos # (Auto) Seg Neutrophils % Seg Neuts % (Manual) Lymphocytes % (Manual) Monocytes % (Manual) Seg Neutrophils # Seg Neutrophils # Man Lymphocytes # (Manual) Monocytes # (Manual) PT INR ABG pH POC ABG pCO2 POC ABG pO2 ABG pO2 ABG HCO3 ABG O2 Saturation ABG Base Excess ABG Hemoglobin ABG Oxyhemoglobin ABG Sodium ABG Potassium ABG Chloride ABG Glucose Oxyhemoglobin Sodium Potassium Chloride Carbon Dioxide BUN Creatinine Glucose POC Glucose 144 H 137 H 119 H Lactic Acid Calcium Phosphorus Magnesium Total Bilirubin AST ALT Alkaline Phosphatase Total Protein Albumin Triglycerides Arterial Blood Glucose Arterial Blood Ionized Calcium Digoxin Crossmatch 01/07/21 01/07/21 01/08/21 17:14 23:39 04:34 WBC RBC Hgb Hct MCV MCHC RDW Plt Count Lymph % (Auto) [place] % (Auto) Eos % (Auto) Lymph # (Auto) [place] # (Auto) Eos # (Auto) Seg Neutrophils % Seg Neuts % (Manual) Lymphocytes % (Manual) Monocytes % (Manual) Seg Neutrophils # Seg Neutrophils # Man Lymphocytes # (Manual) Monocytes # (Manual) PT INR ABG pH 7.345 L POC ABG pCO2 POC ABG pO2 ABG pO2 67.4 L ABG HCO3 ABG O2 Saturation 94.3 L ABG Base Excess -3.9 L ABG Hemoglobin 8.9 L ABG Oxyhemoglobin ABG Sodium ABG Potassium ABG Chloride ABG Glucose Oxyhemoglobin 92.3 L Sodium Potassium Chloride Carbon Dioxide 20 L BUN 93 H Creatinine 8.8 H Glucose 120 H POC Glucose 129 H Lactic Acid Calcium Phosphorus Magnesium Total Bilirubin AST ALT Alkaline Phosphatase 133 H Total Protein 5.4 L Albumin 1.9 L Triglycerides Arterial Blood Glucose Arterial Blood Ionized Calcium Digoxin Crossmatch 01/08/21 01/08/21 01/08/21 05:26 11:38 17:19 WBC RBC Hgb Hct MCV MCHC RDW Plt Count Lymph % (Auto) [place] % (Auto) Eos % (Auto) Lymph # (Auto) [place] # (Auto) Eos # (Auto) Seg Neutrophils % Seg Neuts % (Manual) Lymphocytes % (Manual) Monocytes % (Manual) Seg Neutrophils # Seg Neutrophils # Man Lymphocytes # (Manual) Monocytes # (Manual) PT INR ABG pH POC ABG pCO2 POC ABG pO2 ABG pO2 ABG HCO3 ABG O2 Saturation ABG Base Excess ABG Hemoglobin ABG Oxyhemoglobin ABG Sodium ABG Potassium ABG Chloride ABG Glucose Oxyhemoglobin Sodium Potassium Chloride Carbon Dioxide BUN Creatinine Glucose POC Glucose 125 H 146 H 136 H Lactic Acid Calcium Phosphorus Magnesium Total Bilirubin AST ALT Alkaline Phosphatase Total Protein Albumin Triglycerides Arterial Blood Glucose Arterial Blood Ionized Calcium Digoxin Crossmatch 01/08/21 01/09/21 01/09/21 23:52 05:13 05:21 WBC RBC Hgb Hct MCV MCHC RDW Plt Count Lymph % (Auto) [place] % (Auto) Eos % (Auto) Lymph # (Auto) [place] # (Auto) Eos # (Auto) Seg Neutrophils % Seg Neuts % (Manual) Lymphocytes % (Manual) Monocytes % (Manual) Seg Neutrophils # Seg Neutrophils # Man Lymphocytes # (Manual) Monocytes # (Manual) PT INR ABG pH POC ABG pCO2 POC ABG pO2 ABG pO2 ABG HCO3 ABG O2 Saturation ABG Base Excess ABG Hemoglobin ABG Oxyhemoglobin ABG Sodium ABG Potassium ABG Chloride ABG Glucose Oxyhemoglobin Sodium Potassium Chloride Carbon Dioxide 16 L BUN 123 H Creatinine 10.8 H Glucose 145 H POC Glucose 143 H 144 H Lactic Acid Calcium Phosphorus 5.00 H D Magnesium 2.40 H Total Bilirubin AST ALT Alkaline Phosphatase Total Protein Albumin Triglycerides Arterial Blood Glucose Arterial Blood Ionized Calcium Digoxin Crossmatch 01/09/21 01/09/21 01/09/21 12:08 17:20 23:56 WBC RBC Hgb Hct MCV MCHC RDW Plt Count Lymph % (Auto) [place] % (Auto) Eos % (Auto) Lymph # (Auto) [place] # (Auto) Eos # (Auto) Seg Neutrophils % Seg Neuts % (Manual) Lymphocytes % (Manual) Monocytes % (Manual) Seg Neutrophils # Seg Neutrophils # Man Lymphocytes # (Manual) Monocytes # (Manual) PT INR ABG pH POC ABG pCO2 POC ABG pO2 ABG pO2 ABG HCO3 ABG O2 Saturation ABG Base Excess ABG Hemoglobin ABG Oxyhemoglobin ABG Sodium ABG Potassium ABG Chloride ABG Glucose Oxyhemoglobin Sodium Potassium Chloride Carbon Dioxide BUN Creatinine Glucose POC Glucose 153 H 160 H 158 H Lactic Acid Calcium Phosphorus Magnesium Total Bilirubin AST ALT Alkaline Phosphatase Total Protein Albumin Triglycerides Arterial Blood Glucose Arterial Blood Ionized Calcium Digoxin Crossmatch 01/10/21 01/10/21 01/10/21 04:52 05:44 07:41 WBC RBC Hgb Hct MCV MCHC RDW Plt Count Lymph % (Auto) [place] % (Auto) Eos % (Auto) Lymph # (Auto) [place] # (Auto) Eos # (Auto) Seg Neutrophils % Seg Neuts % (Manual) Lymphocytes % (Manual) Monocytes % (Manual) Seg Neutrophils # Seg Neutrophils # Man Lymphocytes # (Manual) Monocytes # (Manual) PT INR ABG pH POC ABG pCO2 POC ABG pO2 ABG pO2 ABG HCO3 ABG O2 Saturation ABG Base Excess ABG Hemoglobin ABG Oxyhemoglobin ABG Sodium ABG Potassium ABG Chloride ABG Glucose Oxyhemoglobin Sodium 135 L Potassium 3.5 L D Chloride 95.0 L Carbon Dioxide 21 L BUN 93 H Creatinine 8.3 H Glucose 127 H POC Glucose 135 H 157 H Lactic Acid Calcium Phosphorus Magnesium Total Bilirubin AST ALT Alkaline Phosphatase Total Protein Albumin Triglycerides Arterial Blood Glucose Arterial Blood Ionized Calcium Digoxin Crossmatch 01/10/21 01/10/21 01/10/21 09:26 12:03 17:44 WBC 18.2 H RBC 3.14 L Hgb 9.7 L Hct 28.2 L MCV MCHC RDW 16.5 H Plt Count Lymph % (Auto) [place] % (Auto) Eos % (Auto) Lymph # (Auto) [place] # (Auto) Eos # (Auto) Seg Neutrophils % Seg Neuts % (Manual) 95.0 H Lymphocytes % (Manual) 3.0 L Monocytes % (Manual) Seg Neutrophils # Seg Neutrophils # Man 17.3 H Lymphocytes # (Manual) 0.5 L Monocytes # (Manual) PT INR ABG pH POC ABG pCO2 POC ABG pO2 ABG pO2 ABG HCO3 ABG O2 Saturation ABG Base Excess ABG Hemoglobin ABG Oxyhemoglobin ABG Sodium ABG Potassium ABG Chloride ABG Glucose Oxyhemoglobin Sodium Potassium Chloride Carbon Dioxide BUN Creatinine Glucose POC Glucose 163 H 171 H Lactic Acid Calcium Phosphorus Magnesium Total Bilirubin AST ALT Alkaline Phosphatase Total Protein Albumin Triglycerides Arterial Blood Glucose Arterial Blood Ionized Calcium Digoxin Crossmatch 01/10/21 01/11/21 01/11/21 23:50 05:18 05:18 WBC RBC Hgb Hct MCV MCHC RDW Plt Count Lymph % (Auto) [place] % (Auto) Eos % (Auto) Lymph # (Auto) [place] # (Auto) Eos # (Auto) Seg Neutrophils % Seg Neuts % (Manual) Lymphocytes % (Manual) Monocytes % (Manual) Seg Neutrophils # Seg Neutrophils # Man Lymphocytes # (Manual) Monocytes # (Manual) PT INR ABG pH POC ABG pCO2 POC ABG pO2 ABG pO2 ABG HCO3 ABG O2 Saturation ABG Base Excess ABG Hemoglobin ABG Oxyhemoglobin ABG Sodium ABG Potassium ABG Chloride ABG Glucose Oxyhemoglobin Sodium 136 L Potassium Chloride 94.6 L Carbon Dioxide 19 L BUN 145 H Creatinine 10.6 H Glucose 152 H POC Glucose 151 H Lactic Acid Calcium Phosphorus 6.00 H D Magnesium Total Bilirubin AST ALT Alkaline Phosphatase Total Protein Albumin Triglycerides Arterial Blood Glucose Arterial Blood Ionized Calcium Digoxin 0.8 L Crossmatch 01/11/21 01/11/21 01/11/21 05:18 05:19 11:28 WBC 17.4 H RBC 3.34 L Hgb 10.2 L Hct 29.7 L MCV MCHC RDW 15.9 H Plt Count Lymph % (Auto) [place] % (Auto) Eos % (Auto) Lymph # (Auto) [place] # (Auto) Eos # (Auto) Seg Neutrophils % Seg Neuts % (Manual) Lymphocytes % (Manual) Monocytes % (Manual) Seg Neutrophils # Seg Neutrophils # Man Lymphocytes # (Manual) Monocytes # (Manual) PT INR ABG pH POC ABG pCO2 POC ABG pO2 ABG pO2 ABG HCO3 ABG O2 Saturation ABG Base Excess ABG Hemoglobin ABG Oxyhemoglobin ABG Sodium ABG Potassium ABG Chloride ABG Glucose Oxyhemoglobin Sodium Potassium Chloride Carbon Dioxide BUN Creatinine Glucose POC Glucose 149 H 178 H Lactic Acid Calcium Phosphorus Magnesium Total Bilirubin AST ALT Alkaline Phosphatase Total Protein Albumin Triglycerides Arterial Blood Glucose Arterial Blood Ionized Calcium Digoxin Crossmatch 01/11/21 01/11/21 01/12/21 17:31 23:14 05:18 WBC RBC Hgb Hct MCV MCHC RDW Plt Count Lymph % (Auto) [place] % (Auto) Eos % (Auto) Lymph # (Auto) [place] # (Auto) Eos # (Auto) Seg Neutrophils % Seg Neuts % (Manual) Lymphocytes % (Manual) Monocytes % (Manual) Seg Neutrophils # Seg Neutrophils # Man Lymphocytes # (Manual) Monocytes # (Manual) PT INR ABG pH POC ABG pCO2 POC ABG pO2 ABG pO2 ABG HCO3 ABG O2 Saturation ABG Base Excess ABG Hemoglobin ABG Oxyhemoglobin ABG Sodium ABG Potassium ABG Chloride ABG Glucose Oxyhemoglobin Sodium Potassium Chloride Carbon Dioxide BUN Creatinine Glucose POC Glucose 158 H 145 H 148 H Lactic Acid Calcium Phosphorus Magnesium Total Bilirubin AST ALT Alkaline Phosphatase Total Protein Albumin Triglycerides Arterial Blood Glucose Arterial Blood Ionized Calcium Digoxin Crossmatch 01/12/21 01/12/21 01/12/21 06:50 10:45 13:34 WBC RBC Hgb Hct MCV MCHC RDW Plt Count Lymph % (Auto) [place] % (Auto) Eos % (Auto) Lymph # (Auto) [place] # (Auto) Eos # (Auto) Seg Neutrophils % Seg Neuts % (Manual) Lymphocytes % (Manual) Monocytes % (Manual) Seg Neutrophils # Seg Neutrophils # Man Lymphocytes # (Manual) Monocytes # (Manual) PT INR ABG pH POC ABG pCO2 POC ABG pO2 ABG pO2 ABG HCO3 ABG O2 Saturation ABG Base Excess ABG Hemoglobin ABG Oxyhemoglobin ABG Sodium ABG Potassium ABG Chloride ABG Glucose Oxyhemoglobin Sodium Potassium 2.9 L* D Chloride 94.8 L Carbon Dioxide BUN 102 H Creatinine 8.3 H Glucose 139 H POC Glucose 151 H 134 H Lactic Acid Calcium 8.1 L Phosphorus 5.00 H Magnesium Total Bilirubin AST ALT Alkaline Phosphatase Total Protein Albumin Triglycerides Arterial Blood Glucose Arterial Blood Ionized Calcium Digoxin Crossmatch 01/12/21 01/12/21 01/13/21 16:59 23:06 03:45 WBC RBC Hgb Hct MCV MCHC RDW Plt Count Lymph % (Auto) [place] % (Auto) Eos % (Auto) Lymph # (Auto) [place] # (Auto) Eos # (Auto) Seg Neutrophils % Seg Neuts % (Manual) Lymphocytes % (Manual) Monocytes % (Manual) Seg Neutrophils # Seg Neutrophils # Man Lymphocytes # (Manual) Monocytes # (Manual) PT INR ABG pH POC ABG pCO2 POC ABG pO2 ABG pO2 ABG HCO3 ABG O2 Saturation ABG Base Excess ABG Hemoglobin ABG Oxyhemoglobin ABG Sodium ABG Potassium ABG Chloride ABG Glucose Oxyhemoglobin Sodium 136 L Potassium 3.4 L Chloride 92.6 L Carbon Dioxide BUN 134 H Creatinine 10.4 H Glucose 126 H POC Glucose 108 H 135 H Lactic Acid Calcium 8.3 L Phosphorus 5.60 H Magnesium 1.50 L Total Bilirubin AST ALT Alkaline Phosphatase Total Protein Albumin Triglycerides Arterial Blood Glucose Arterial Blood Ionized Calcium Digoxin Crossmatch 01/13/21 01/13/21 01/13/21 03:45 05:55 11:59 WBC 17.6 H RBC 3.33 L Hgb 10.2 L Hct 29.5 L MCV MCHC 35 H RDW 15.5 H Plt Count Lymph % (Auto) 4.4 L [place] % (Auto) 10.3 H Eos % (Auto) Lymph # (Auto) 0.8 L [place] # (Auto) 1.8 H Eos # (Auto) Seg Neutrophils % 84.2 H Seg Neuts % (Manual) Lymphocytes % (Manual) Monocytes % (Manual) Seg Neutrophils # 14.8 H Seg Neutrophils # Man Lymphocytes # (Manual) Monocytes # (Manual) PT INR ABG pH POC ABG pCO2 POC ABG pO2 ABG pO2 ABG HCO3 ABG O2 Saturation ABG Base Excess ABG Hemoglobin ABG Oxyhemoglobin ABG Sodium ABG Potassium ABG Chloride ABG Glucose Oxyhemoglobin Sodium Potassium Chloride Carbon Dioxide BUN Creatinine Glucose POC Glucose 134 H 141 H Lactic Acid Calcium Phosphorus Magnesium Total Bilirubin AST ALT Alkaline Phosphatase Total Protein Albumin Triglycerides Arterial Blood Glucose Arterial Blood Ionized Calcium Digoxin Crossmatch 01/13/21 01/14/21 01/14/21 23:09 05:39 05:57 WBC RBC Hgb Hct MCV MCHC RDW Plt Count Lymph % (Auto) [place] % (Auto) Eos % (Auto) Lymph # (Auto) [place] # (Auto) Eos # (Auto) Seg Neutrophils % Seg Neuts % (Manual) Lymphocytes % (Manual) Monocytes % (Manual) Seg Neutrophils # Seg Neutrophils # Man Lymphocytes # (Manual) Monocytes # (Manual) PT INR ABG pH POC ABG pCO2 POC ABG pO2 ABG pO2 ABG HCO3 ABG O2 Saturation ABG Base Excess ABG Hemoglobin ABG Oxyhemoglobin ABG Sodium ABG Potassium ABG Chloride ABG Glucose Oxyhemoglobin Sodium Potassium Chloride 97.6 L Carbon Dioxide BUN 81 H Creatinine 7.6 H Glucose 193 H POC Glucose 106 H 190 H Lactic Acid Calcium 8.2 L Phosphorus 4.60 H Magnesium Total Bilirubin AST ALT Alkaline Phosphatase Total Protein Albumin Triglycerides Arterial Blood Glucose Arterial Blood Ionized Calcium Digoxin Crossmatch 01/14/21 01/14/21 01/14/21 10:00 16:56 16:59 WBC 17.0 H RBC 3.10 L Hgb 9.6 L Hct 27.4 L MCV MCHC 35 H RDW 15.6 H Plt Count Lymph % (Auto) [place] % (Auto) Eos % (Auto) Lymph # (Auto) [place] # (Auto) Eos # (Auto) Seg Neutrophils % Seg Neuts % (Manual) Lymphocytes % (Manual) Monocytes % (Manual) Seg Neutrophils # Seg Neutrophils # Man Lymphocytes # (Manual) Monocytes # (Manual) PT INR ABG pH POC ABG pCO2 POC ABG pO2 ABG pO2 ABG HCO3 ABG O2 Saturation ABG Base Excess ABG Hemoglobin ABG Oxyhemoglobin ABG Sodium ABG Potassium ABG Chloride ABG Glucose Oxyhemoglobin Sodium Potassium Chloride Carbon Dioxide BUN Creatinine Glucose POC Glucose 37 L 34 L Lactic Acid Calcium Phosphorus Magnesium Total Bilirubin AST ALT Alkaline Phosphatase Total Protein Albumin Triglycerides Arterial Blood Glucose Arterial Blood Ionized Calcium Digoxin Crossmatch 01/14/21 01/14/21 01/14/21 17:02 18:34 23:17 WBC RBC Hgb Hct MCV MCHC RDW Plt Count Lymph % (Auto) [place] % (Auto) Eos % (Auto) Lymph # (Auto) [place] # (Auto) Eos # (Auto) Seg Neutrophils % Seg Neuts % (Manual) Lymphocytes % (Manual) Monocytes % (Manual) Seg Neutrophils # Seg Neutrophils # Man Lymphocytes # (Manual) Monocytes # (Manual) PT INR ABG pH POC ABG pCO2 POC ABG pO2 ABG pO2 ABG HCO3 ABG O2 Saturation ABG Base Excess ABG Hemoglobin ABG Oxyhemoglobin ABG Sodium ABG Potassium ABG Chloride ABG Glucose Oxyhemoglobin Sodium Potassium Chloride Carbon Dioxide BUN Creatinine Glucose POC Glucose 35 L 143 H 53 L Lactic Acid Calcium Phosphorus Magnesium Total Bilirubin AST ALT Alkaline Phosphatase Total Protein Albumin Triglycerides Arterial Blood Glucose Arterial Blood Ionized Calcium Digoxin Crossmatch 01/15/21 01/15/21 01/15/21 00:34 04:00 04:00 WBC 15.9 H RBC 3.02 L Hgb 9.3 L Hct 27.3 L MCV MCHC RDW 15.6 H Plt Count Lymph % (Auto) [place] % (Auto) Eos % (Auto) Lymph # (Auto) [place] # (Auto) Eos # (Auto) Seg Neutrophils % Seg Neuts % (Manual) Lymphocytes % (Manual) Monocytes % (Manual) Seg Neutrophils # Seg Neutrophils # Man Lymphocytes # (Manual) Monocytes # (Manual) PT INR ABG pH POC ABG pCO2 POC ABG pO2 ABG pO2 ABG HCO3 ABG O2 Saturation ABG Base Excess ABG Hemoglobin ABG Oxyhemoglobin ABG Sodium ABG Potassium ABG Chloride ABG Glucose Oxyhemoglobin Sodium 136 L Potassium Chloride 94.3 L Carbon Dioxide BUN 117 H Creatinine 9.9 H Glucose 217 H POC Glucose 181 H Lactic Acid Calcium 8.3 L Phosphorus Magnesium Total Bilirubin AST ALT Alkaline Phosphatase Total Protein Albumin Triglycerides Arterial Blood Glucose Arterial Blood Ionized Calcium Digoxin Crossmatch 01/15/21 01/15/21 01/15/21 05:29 11:51 23:13 WBC RBC Hgb Hct MCV MCHC RDW Plt Count Lymph % (Auto) [place] % (Auto) Eos % (Auto) Lymph # (Auto) [place] # (Auto) Eos # (Auto) Seg Neutrophils % Seg Neuts % (Manual) Lymphocytes % (Manual) Monocytes % (Manual) Seg Neutrophils # Seg Neutrophils # Man Lymphocytes # (Manual) Monocytes # (Manual) PT INR ABG pH POC ABG pCO2 POC ABG pO2 ABG pO2 ABG HCO3 ABG O2 Saturation ABG Base Excess ABG Hemoglobin ABG Oxyhemoglobin ABG Sodium ABG Potassium ABG Chloride ABG Glucose Oxyhemoglobin Sodium Potassium Chloride Carbon Dioxide BUN Creatinine Glucose POC Glucose 221 H 62 L 154 H Lactic Acid Calcium Phosphorus Magnesium Total Bilirubin AST ALT Alkaline Phosphatase Total Protein Albumin Triglycerides Arterial Blood Glucose Arterial Blood Ionized Calcium Digoxin Crossmatch 01/16/21 01/16/21 01/16/21 05:04 06:44 06:44 WBC 14.8 H RBC 2.76 L Hgb 8.2 L Hct 24.8 L MCV MCHC RDW 15.6 H Plt Count Lymph % (Auto) [place] % (Auto) Eos % (Auto) Lymph # (Auto) [place] # (Auto) Eos # (Auto) Seg Neutrophils % Seg Neuts % (Manual) Lymphocytes % (Manual) Monocytes % (Manual) Seg Neutrophils # Seg Neutrophils # Man Lymphocytes # (Manual) Monocytes # (Manual) PT INR ABG pH POC ABG pCO2 POC ABG pO2 ABG pO2 ABG HCO3 ABG O2 Saturation ABG Base Excess ABG Hemoglobin ABG Oxyhemoglobin ABG Sodium ABG Potassium ABG Chloride ABG Glucose Oxyhemoglobin Sodium 133 L Potassium Chloride 92.3 L Carbon Dioxide 20 L BUN 160 H Creatinine 12.1 H Glucose 177 H POC Glucose 168 H Lactic Acid Calcium 8.1 L Phosphorus 5.50 H Magnesium 2.50 H Total Bilirubin AST ALT Alkaline Phosphatase Total Protein Albumin Triglycerides Arterial Blood Glucose Arterial Blood Ionized Calcium Digoxin Crossmatch 01/16/21 01/17/21 01/17/21 23:20 05:14 05:14 WBC 12.7 H RBC 2.75 L Hgb 8.5 L Hct 24.6 L MCV MCHC 35 H RDW 15.4 H Plt Count Lymph % (Auto) [place] % (Auto) Eos % (Auto) Lymph # (Auto) [place] # (Auto) Eos # (Auto) Seg Neutrophils % Seg Neuts % (Manual) Lymphocytes % (Manual) Monocytes % (Manual) Seg Neutrophils # Seg Neutrophils # Man Lymphocytes # (Manual) Monocytes # (Manual) PT INR ABG pH POC ABG pCO2 POC ABG pO2 ABG pO2 ABG HCO3 ABG O2 Saturation ABG Base Excess ABG Hemoglobin ABG Oxyhemoglobin ABG Sodium ABG Potassium ABG Chloride ABG Glucose Oxyhemoglobin Sodium Potassium Chloride 97.9 L Carbon Dioxide BUN 84 H Creatinine 7.8 H Glucose 176 H POC Glucose 153 H Lactic Acid Calcium 8.0 L Phosphorus Magnesium Total Bilirubin AST ALT Alkaline Phosphatase Total Protein Albumin Triglycerides Arterial Blood Glucose Arterial Blood Ionized Calcium Digoxin Crossmatch 01/17/21 01/17/21 01/18/21 05:33 11:58 00:07 WBC RBC Hgb Hct MCV MCHC RDW Plt Count Lymph % (Auto) [place] % (Auto) Eos % (Auto) Lymph # (Auto) [place] # (Auto) Eos # (Auto) Seg Neutrophils % Seg Neuts % (Manual) Lymphocytes % (Manual) Monocytes % (Manual) Seg Neutrophils # Seg Neutrophils # Man Lymphocytes # (Manual) Monocytes # (Manual) PT INR ABG pH POC ABG pCO2 POC ABG pO2 ABG pO2 ABG HCO3 ABG O2 Saturation ABG Base Excess ABG Hemoglobin ABG Oxyhemoglobin ABG Sodium ABG Potassium ABG Chloride ABG Glucose Oxyhemoglobin Sodium Potassium Chloride Carbon Dioxide BUN Creatinine Glucose POC Glucose 162 H 64 L 146 H Lactic Acid Calcium Phosphorus Magnesium Total Bilirubin AST ALT Alkaline Phosphatase Total Protein Albumin Triglycerides Arterial Blood Glucose Arterial Blood Ionized Calcium Digoxin Crossmatch 01/18/21 01/18/21 01/18/21 04:19 04:19 06:15 WBC 15.6 H RBC 3.00 L Hgb 9.2 L Hct 26.8 L MCV MCHC 35 H RDW 15.6 H Plt Count Lymph % (Auto) [place] % (Auto) Eos % (Auto) Lymph # (Auto) [place] # (Auto) Eos # (Auto) Seg Neutrophils % Seg Neuts % (Manual) Lymphocytes % (Manual) Monocytes % (Manual) Seg Neutrophils # Seg Neutrophils # Man Lymphocytes # (Manual) Monocytes # (Manual) PT INR ABG pH POC ABG pCO2 POC ABG pO2 ABG pO2 ABG HCO3 ABG O2 Saturation ABG Base Excess ABG Hemoglobin ABG Oxyhemoglobin ABG Sodium ABG Potassium ABG Chloride ABG Glucose Oxyhemoglobin Sodium Potassium Chloride 96.2 L Carbon Dioxide BUN 117 H Creatinine 10.0 H Glucose 165 H POC Glucose 189 H Lactic Acid Calcium Phosphorus 4.70 H D Magnesium Total Bilirubin AST ALT Alkaline Phosphatase Total Protein Albumin Triglycerides Arterial Blood Glucose Arterial Blood Ionized Calcium Digoxin Crossmatch 01/18/21 01/18/21 01/18/21 11:53 13:44 15:08 WBC RBC Hgb Hct MCV MCHC RDW Plt Count Lymph % (Auto) [place] % (Auto) Eos % (Auto) Lymph # (Auto) [place] # (Auto) Eos # (Auto) Seg Neutrophils % Seg Neuts % (Manual) Lymphocytes % (Manual) Monocytes % (Manual) Seg Neutrophils # Seg Neutrophils # Man Lymphocytes # (Manual) Monocytes # (Manual) PT INR ABG pH POC ABG pCO2 POC ABG pO2 ABG pO2 ABG HCO3 ABG O2 Saturation ABG Base Excess ABG Hemoglobin ABG Oxyhemoglobin ABG Sodium ABG Potassium ABG Chloride ABG Glucose Oxyhemoglobin Sodium Potassium Chloride Carbon Dioxide BUN Creatinine Glucose POC Glucose 69 L 50 L 56 L Lactic Acid Calcium Phosphorus Magnesium Total Bilirubin AST ALT Alkaline Phosphatase Total Protein Albumin Triglycerides Arterial Blood Glucose Arterial Blood Ionized Calcium Digoxin Crossmatch 01/18/21 01/19/21 01/19/21 17:50 04:55 08:56 WBC 12.7 H RBC 2.89 L Hgb 8.7 L Hct 25.6 L MCV MCHC RDW 15.5 H Plt Count Lymph % (Auto) [place] % (Auto) Eos % (Auto) Lymph # (Auto) [place] # (Auto) Eos # (Auto) Seg Neutrophils % Seg Neuts % (Manual) Lymphocytes % (Manual) Monocytes % (Manual) Seg Neutrophils # Seg Neutrophils # Man Lymphocytes # (Manual) Monocytes # (Manual) PT INR ABG pH POC ABG pCO2 POC ABG pO2 ABG pO2 ABG HCO3 ABG O2 Saturation ABG Base Excess ABG Hemoglobin ABG Oxyhemoglobin ABG Sodium ABG Potassium ABG Chloride ABG Glucose Oxyhemoglobin Sodium Potassium Chloride Carbon Dioxide BUN Creatinine Glucose POC Glucose 137 H 120 H Lactic Acid Calcium Phosphorus Magnesium Total Bilirubin AST ALT Alkaline Phosphatase Total Protein Albumin Triglycerides Arterial Blood Glucose Arterial Blood Ionized Calcium Digoxin Crossmatch 01/19/21 01/19/21 01/19/21 08:56 11:33 17:32 WBC RBC Hgb Hct MCV MCHC RDW Plt Count Lymph % (Auto) [place] % (Auto) Eos % (Auto) Lymph # (Auto) [place] # (Auto) Eos # (Auto) Seg Neutrophils % Seg Neuts % (Manual) Lymphocytes % (Manual) Monocytes % (Manual) Seg Neutrophils # Seg Neutrophils # Man Lymphocytes # (Manual) Monocytes # (Manual) PT INR ABG pH POC ABG pCO2 POC ABG pO2 ABG pO2 ABG HCO3 ABG O2 Saturation ABG Base Excess ABG Hemoglobin ABG Oxyhemoglobin ABG Sodium ABG Potassium ABG Chloride ABG Glucose Oxyhemoglobin Sodium Potassium Chloride Carbon Dioxide BUN 66 H Creatinine 7.7 H Glucose 119 H POC Glucose 160 H 125 H Lactic Acid Calcium 8.3 L Phosphorus Magnesium Total Bilirubin AST ALT Alkaline Phosphatase Total Protein Albumin Triglycerides Arterial Blood Glucose Arterial Blood Ionized Calcium Digoxin Crossmatch 01/19/21 01/20/21 01/20/21 23:30 03:35 03:35 WBC 12.0 H RBC 2.62 L Hgb 8.3 L Hct 23.2 L MCV MCHC 36 H RDW Plt Count Lymph % (Auto) [place] % (Auto) Eos % (Auto) Lymph # (Auto) [place] # (Auto) Eos # (Auto) Seg Neutrophils % Seg Neuts % (Manual) Lymphocytes % (Manual) Monocytes % (Manual) Seg Neutrophils # Seg Neutrophils # Man Lymphocytes # (Manual) Monocytes # (Manual) PT INR ABG pH POC ABG pCO2 POC ABG pO2 ABG pO2 ABG HCO3 ABG O2 Saturation ABG Base Excess ABG Hemoglobin ABG Oxyhemoglobin ABG Sodium ABG Potassium ABG Chloride ABG Glucose Oxyhemoglobin Sodium Potassium Chloride Carbon Dioxide BUN 46 H Creatinine 5.9 H Glucose 128 H POC Glucose 127 H Lactic Acid Calcium Phosphorus Magnesium Total Bilirubin AST ALT Alkaline Phosphatase Total Protein Albumin Triglycerides Arterial Blood Glucose Arterial Blood Ionized Calcium Digoxin Crossmatch 01/20/21 01/20/21 01/20/21 06:19 11:55 18:00 WBC RBC Hgb Hct MCV MCHC RDW Plt Count Lymph % (Auto) [place] % (Auto) Eos % (Auto) Lymph # (Auto) [place] # (Auto) Eos # (Auto) Seg Neutrophils % Seg Neuts % (Manual) Lymphocytes % (Manual) Monocytes % (Manual) Seg Neutrophils # Seg Neutrophils # Man Lymphocytes # (Manual) Monocytes # (Manual) PT INR ABG pH POC ABG pCO2 POC ABG pO2 ABG pO2 ABG HCO3 ABG O2 Saturation ABG Base Excess ABG Hemoglobin ABG Oxyhemoglobin ABG Sodium ABG Potassium ABG Chloride ABG Glucose Oxyhemoglobin Sodium Potassium Chloride Carbon Dioxide BUN Creatinine Glucose POC Glucose 119 H 128 H 115 H Lactic Acid Calcium Phosphorus Magnesium Total Bilirubin AST ALT Alkaline Phosphatase Total Protein Albumin Triglycerides Arterial Blood Glucose Arterial Blood Ionized Calcium Digoxin Crossmatch 01/20/21 01/21/21 01/21/21 23:26 04:39 05:27 WBC RBC Hgb Hct MCV MCHC RDW Plt Count Lymph % (Auto) [place] % (Auto) Eos % (Auto) Lymph # (Auto) [place] # (Auto) Eos # (Auto) Seg Neutrophils % Seg Neuts % (Manual) Lymphocytes % (Manual) Monocytes % (Manual) Seg Neutrophils # Seg Neutrophils # Man Lymphocytes # (Manual) Monocytes # (Manual) PT INR ABG pH POC ABG pCO2 POC ABG pO2 ABG pO2 ABG HCO3 ABG O2 Saturation ABG Base Excess ABG Hemoglobin ABG Oxyhemoglobin ABG Sodium ABG Potassium ABG Chloride ABG Glucose Oxyhemoglobin Sodium Potassium Chloride Carbon Dioxide BUN 37 H Creatinine 5.3 H Glucose 109 H POC Glucose 108 H 107 H Lactic Acid Calcium Phosphorus 2.10 L Magnesium 1.50 L Total Bilirubin AST ALT Alkaline Phosphatase 143 H Total Protein 6.1 L Albumin 3.0 L Triglycerides Arterial Blood Glucose Arterial Blood Ionized Calcium Digoxin Crossmatch 01/21/21 01/21/21 01/22/21 11:35 17:53 00:20 WBC RBC Hgb Hct MCV MCHC RDW Plt Count Lymph % (Auto) [place] % (Auto) Eos % (Auto) Lymph # (Auto) [place] # (Auto) Eos # (Auto) Seg Neutrophils % Seg Neuts % (Manual) Lymphocytes % (Manual) Monocytes % (Manual) Seg Neutrophils # Seg Neutrophils # Man Lymphocytes # (Manual) Monocytes # (Manual) PT INR ABG pH POC ABG pCO2 POC ABG pO2 ABG pO2 ABG HCO3 ABG O2 Saturation ABG Base Excess ABG Hemoglobin ABG Oxyhemoglobin ABG Sodium ABG Potassium ABG Chloride ABG Glucose Oxyhemoglobin Sodium Potassium Chloride Carbon Dioxide BUN Creatinine Glucose POC Glucose 133 H 124 H 122 H Lactic Acid Calcium Phosphorus Magnesium Total Bilirubin AST ALT Alkaline Phosphatase Total Protein Albumin Triglycerides Arterial Blood Glucose Arterial Blood Ionized Calcium Digoxin Crossmatch 01/22/21 01/22/21 01/22/21 04:00 06:09 11:36 WBC RBC Hgb Hct MCV MCHC RDW Plt Count Lymph % (Auto) [place] % (Auto) Eos % (Auto) Lymph # (Auto) [place] # (Auto) Eos # (Auto) Seg Neutrophils % Seg Neuts % (Manual) Lymphocytes % (Manual) Monocytes % (Manual) Seg Neutrophils # Seg Neutrophils # Man Lymphocytes # (Manual) Monocytes # (Manual) PT INR ABG pH POC ABG pCO2 POC ABG pO2 ABG pO2 ABG HCO3 ABG O2 Saturation ABG Base Excess ABG Hemoglobin ABG Oxyhemoglobin ABG Sodium ABG Potassium ABG Chloride ABG Glucose Oxyhemoglobin Sodium Potassium Chloride Carbon Dioxide BUN 65 H Creatinine 8.2 H D Glucose 111 H POC Glucose 122 H 132 H Lactic Acid Calcium Phosphorus Magnesium Total Bilirubin AST ALT Alkaline Phosphatase Total Protein Albumin Triglycerides Arterial Blood Glucose Arterial Blood Ionized Calcium Digoxin Crossmatch 01/22/21 01/22/21 01/23/21 17:17 23:18 05:29 WBC RBC Hgb Hct MCV MCHC RDW Plt Count Lymph % (Auto) [place] % (Auto) Eos % (Auto) Lymph # (Auto) [place] # (Auto) Eos # (Auto) Seg Neutrophils % Seg Neuts % (Manual) Lymphocytes % (Manual) Monocytes % (Manual) Seg Neutrophils # Seg Neutrophils # Man Lymphocytes # (Manual) Monocytes # (Manual) PT INR ABG pH POC ABG pCO2 POC ABG pO2 ABG pO2 ABG HCO3 ABG O2 Saturation ABG Base Excess ABG Hemoglobin ABG Oxyhemoglobin ABG Sodium ABG Potassium ABG Chloride ABG Glucose Oxyhemoglobin Sodium Potassium Chloride Carbon Dioxide BUN Creatinine Glucose POC Glucose 135 H 128 H 129 H Lactic Acid Calcium Phosphorus Magnesium Total Bilirubin AST ALT Alkaline Phosphatase Total Protein Albumin Triglycerides Arterial Blood Glucose Arterial Blood Ionized Calcium Digoxin Crossmatch 01/23/21 01/23/21 01/23/21 05:45 11:28 16:39 WBC RBC Hgb Hct MCV MCHC RDW Plt Count Lymph % (Auto) [place] % (Auto) Eos % (Auto) Lymph # (Auto) [place] # (Auto) Eos # (Auto) Seg Neutrophils % Seg Neuts % (Manual) Lymphocytes % (Manual) Monocytes % (Manual) Seg Neutrophils # Seg Neutrophils # Man Lymphocytes # (Manual) Monocytes # (Manual) PT INR ABG pH POC ABG pCO2 POC ABG pO2 ABG pO2 ABG HCO3 ABG O2 Saturation ABG Base Excess ABG Hemoglobin ABG Oxyhemoglobin ABG Sodium ABG Potassium ABG Chloride ABG Glucose Oxyhemoglobin Sodium Potassium Chloride Carbon Dioxide BUN 96 H Creatinine 10.8 H Glucose 124 H POC Glucose 160 H 116 H Lactic Acid Calcium Phosphorus Magnesium 2.50 H Total Bilirubin AST ALT Alkaline Phosphatase Total Protein Albumin Triglycerides Arterial Blood Glucose Arterial Blood Ionized Calcium Digoxin Crossmatch 01/24/21 01/24/21 01/24/21 00:02 04:45 05:01 WBC RBC Hgb Hct MCV MCHC RDW Plt Count Lymph % (Auto) [place] % (Auto) Eos % (Auto) Lymph # (Auto) [place] # (Auto) Eos # (Auto) Seg Neutrophils % Seg Neuts % (Manual) Lymphocytes % (Manual) Monocytes % (Manual) Seg Neutrophils # Seg Neutrophils # Man Lymphocytes # (Manual) Monocytes # (Manual) PT INR ABG pH POC ABG pCO2 POC ABG pO2 ABG pO2 ABG HCO3 ABG O2 Saturation ABG Base Excess ABG Hemoglobin ABG Oxyhemoglobin ABG Sodium ABG Potassium ABG Chloride ABG Glucose Oxyhemoglobin Sodium Potassium 3.5 L Chloride Carbon Dioxide BUN 56 H Creatinine 7.7 H Glucose 102 H POC Glucose 120 H 108 H Lactic Acid Calcium Phosphorus Magnesium Total Bilirubin AST ALT Alkaline Phosphatase Total Protein Albumin Triglycerides Arterial Blood Glucose Arterial Blood Ionized Calcium Digoxin Crossmatch 01/24/21 01/24/21 01/24/21 12:03 17:07 23:55 WBC RBC Hgb Hct MCV MCHC RDW Plt Count Lymph % (Auto) [place] % (Auto) Eos % (Auto) Lymph # (Auto) [place] # (Auto) Eos # (Auto) Seg Neutrophils % Seg Neuts % (Manual) Lymphocytes % (Manual) Monocytes % (Manual) Seg Neutrophils # Seg Neutrophils # Man Lymphocytes # (Manual) Monocytes # (Manual) PT INR ABG pH POC ABG pCO2 POC ABG pO2 ABG pO2 ABG HCO3 ABG O2 Saturation ABG Base Excess ABG Hemoglobin ABG Oxyhemoglobin ABG Sodium ABG Potassium ABG Chloride ABG Glucose Oxyhemoglobin Sodium Potassium Chloride Carbon Dioxide BUN Creatinine Glucose POC Glucose 136 H 122 H 112 H Lactic Acid Calcium Phosphorus Magnesium Total Bilirubin AST ALT Alkaline Phosphatase Total Protein Albumin Triglycerides Arterial Blood Glucose Arterial Blood Ionized Calcium Digoxin Crossmatch 01/25/21 01/25/21 01/25/21 05:15 06:00 07:47 WBC RBC Hgb Hct MCV MCHC RDW Plt Count Lymph % (Auto) [place] % (Auto) Eos % (Auto) Lymph # (Auto) [place] # (Auto) Eos # (Auto) Seg Neutrophils % Seg Neuts % (Manual) Lymphocytes % (Manual) Monocytes % (Manual) Seg Neutrophils # Seg Neutrophils # Man Lymphocytes # (Manual) Monocytes # (Manual) PT INR ABG pH POC ABG pCO2 POC ABG pO2 ABG pO2 ABG HCO3 ABG O2 Saturation ABG Base Excess ABG Hemoglobin ABG Oxyhemoglobin ABG Sodium ABG Potassium ABG Chloride ABG Glucose Oxyhemoglobin Sodium 116 L* D Potassium Chloride 79.1 L Carbon Dioxide 17 L D BUN 72 H Creatinine 7.4 H Glucose 2242 H* POC Glucose 117 H 138 H Lactic Acid Calcium 6.7 L D Phosphorus Magnesium Total Bilirubin AST ALT Alkaline Phosphatase Total Protein Albumin Triglycerides Arterial Blood Glucose Arterial Blood Ionized Calcium Digoxin Crossmatch 01/25/21 01/25/21 01/25/21 08:35 11:49 18:42 WBC RBC Hgb Hct MCV MCHC RDW Plt Count Lymph % (Auto) [place] % (Auto) Eos % (Auto) Lymph # (Auto) [place] # (Auto) Eos # (Auto) Seg Neutrophils % Seg Neuts % (Manual) Lymphocytes % (Manual) Monocytes % (Manual) Seg Neutrophils # Seg Neutrophils # Man Lymphocytes # (Manual) Monocytes # (Manual) PT INR ABG pH POC ABG pCO2 POC ABG pO2 ABG pO2 ABG HCO3 ABG O2 Saturation ABG Base Excess ABG Hemoglobin ABG Oxyhemoglobin ABG Sodium ABG Potassium ABG Chloride ABG Glucose Oxyhemoglobin Sodium Potassium Chloride 97.0 L Carbon Dioxide BUN 92 H Creatinine 11.0 H Glucose 125 H POC Glucose 130 H 122 H Lactic Acid Calcium Phosphorus Magnesium Total Bilirubin AST ALT Alkaline Phosphatase Total Protein Albumin Triglycerides Arterial Blood Glucose Arterial Blood Ionized Calcium Digoxin Crossmatch 01/25/21 01/26/21 01/26/21 23:37 04:19 05:48 WBC RBC Hgb Hct MCV MCHC RDW Plt Count Lymph % (Auto) [place] % (Auto) Eos % (Auto) Lymph # (Auto) [place] # (Auto) Eos # (Auto) Seg Neutrophils % Seg Neuts % (Manual) Lymphocytes % (Manual) Monocytes % (Manual) Seg Neutrophils # Seg Neutrophils # Man Lymphocytes # (Manual) Monocytes # (Manual) PT INR ABG pH POC ABG pCO2 POC ABG pO2 ABG pO2 ABG HCO3 ABG O2 Saturation ABG Base Excess ABG Hemoglobin ABG Oxyhemoglobin ABG Sodium ABG Potassium ABG Chloride ABG Glucose Oxyhemoglobin Sodium Potassium Chloride Carbon Dioxide BUN 49 H Creatinine 7.1 H Glucose POC Glucose 144 H 125 H Lactic Acid Calcium Phosphorus Magnesium 1.50 L Total Bilirubin AST ALT Alkaline Phosphatase Total Protein Albumin Triglycerides Arterial Blood Glucose Arterial Blood Ionized Calcium Digoxin Crossmatch 01/26/21 01/26/21 01/27/21 11:16 18:35 00:01 WBC RBC Hgb Hct MCV MCHC RDW Plt Count Lymph % (Auto) [place] % (Auto) Eos % (Auto) Lymph # (Auto) [place] # (Auto) Eos # (Auto) Seg Neutrophils % Seg Neuts % (Manual) Lymphocytes % (Manual) Monocytes % (Manual) Seg Neutrophils # Seg Neutrophils # Man Lymphocytes # (Manual) Monocytes # (Manual) PT INR ABG pH POC ABG pCO2 POC ABG pO2 ABG pO2 ABG HCO3 ABG O2 Saturation ABG Base Excess ABG Hemoglobin ABG Oxyhemoglobin ABG Sodium ABG Potassium ABG Chloride ABG Glucose Oxyhemoglobin Sodium Potassium Chloride Carbon Dioxide BUN Creatinine Glucose POC Glucose 122 H 127 H 130 H Lactic Acid Calcium Phosphorus Magnesium Total Bilirubin AST ALT Alkaline Phosphatase Total Protein Albumin Triglycerides Arterial Blood Glucose Arterial Blood Ionized Calcium Digoxin Crossmatch 01/27/21 01/27/21 01/27/21 04:19 04:19 05:25 WBC 12.4 H RBC 2.79 L Hgb 8.6 L Hct 25.1 L MCV MCHC RDW 16.1 H Plt Count Lymph % (Auto) 7.5 L [place] % (Auto) 9.3 H Eos % (Auto) 4.8 H Lymph # (Auto) 0.9 L [place] # (Auto) 1.1 H Eos # (Auto) 0.6 H Seg Neutrophils % 78.0 H Seg Neuts % (Manual) Lymphocytes % (Manual) Monocytes % (Manual) Seg Neutrophils # 9.7 H Seg Neutrophils # Man Lymphocytes # (Manual) Monocytes # (Manual) PT INR ABG pH POC ABG pCO2 POC ABG pO2 ABG pO2 ABG HCO3 ABG O2 Saturation ABG Base Excess ABG Hemoglobin ABG Oxyhemoglobin ABG Sodium ABG Potassium ABG Chloride ABG Glucose Oxyhemoglobin Sodium Potassium Chloride 97.9 L Carbon Dioxide BUN 76 H Creatinine 9.9 H Glucose 111 H POC Glucose 129 H Lactic Acid Calcium Phosphorus Magnesium Total Bilirubin AST ALT Alkaline Phosphatase Total Protein Albumin Triglycerides Arterial Blood Glucose Arterial Blood Ionized Calcium Digoxin Crossmatch 01/27/21 01/27/21 01/27/21 11:30 17:08 23:28 WBC RBC Hgb Hct MCV MCHC RDW Plt Count Lymph % (Auto) [place] % (Auto) Eos % (Auto) Lymph # (Auto) [place] # (Auto) Eos # (Auto) Seg Neutrophils % Seg Neuts % (Manual) Lymphocytes % (Manual) Monocytes % (Manual) Seg Neutrophils # Seg Neutrophils # Man Lymphocytes # (Manual) Monocytes # (Manual) PT INR ABG pH POC ABG pCO2 POC ABG pO2 ABG pO2 ABG HCO3 ABG O2 Saturation ABG Base Excess ABG Hemoglobin ABG Oxyhemoglobin ABG Sodium ABG Potassium ABG Chloride ABG Glucose Oxyhemoglobin Sodium Potassium Chloride Carbon Dioxide BUN Creatinine Glucose POC Glucose 128 H 158 H 114 H Lactic Acid Calcium Phosphorus Magnesium Total Bilirubin AST ALT Alkaline Phosphatase Total Protein Albumin Triglycerides Arterial Blood Glucose Arterial Blood Ionized Calcium Digoxin Crossmatch 01/28/21 01/28/21 01/28/21 05:17 11:27 18:01 WBC RBC Hgb Hct MCV MCHC RDW Plt Count Lymph % (Auto) [place] % (Auto) Eos % (Auto) Lymph # (Auto) [place] # (Auto) Eos # (Auto) Seg Neutrophils % Seg Neuts % (Manual) Lymphocytes % (Manual) Monocytes % (Manual) Seg Neutrophils # Seg Neutrophils # Man Lymphocytes # (Manual) Monocytes # (Manual) PT INR ABG pH POC ABG pCO2 POC ABG pO2 ABG pO2 ABG HCO3 ABG O2 Saturation ABG Base Excess ABG Hemoglobin ABG Oxyhemoglobin ABG Sodium ABG Potassium ABG Chloride ABG Glucose Oxyhemoglobin Sodium Potassium Chloride Carbon Dioxide BUN Creatinine Glucose POC Glucose 113 H 134 H 111 H Lactic Acid Calcium Phosphorus Magnesium Total Bilirubin AST ALT Alkaline Phosphatase Total Protein Albumin Triglycerides Arterial Blood Glucose Arterial Blood Ionized Calcium Digoxin Crossmatch 01/29/21 01/29/21 01/29/21 04:54 06:45 11:10 WBC RBC Hgb Hct MCV MCHC RDW Plt Count Lymph % (Auto) [place] % (Auto) Eos % (Auto) Lymph # (Auto) [place] # (Auto) Eos # (Auto) Seg Neutrophils % Seg Neuts % (Manual) Lymphocytes % (Manual) Monocytes % (Manual) Seg Neutrophils # Seg Neutrophils # Man Lymphocytes # (Manual) Monocytes # (Manual) PT INR ABG pH POC ABG pCO2 POC ABG pO2 ABG pO2 ABG HCO3 ABG O2 Saturation ABG Base Excess ABG Hemoglobin ABG Oxyhemoglobin ABG Sodium ABG Potassium ABG Chloride ABG Glucose Oxyhemoglobin Sodium Potassium 3.4 L Chloride Carbon Dioxide BUN 51 H Creatinine 6.9 H Glucose 120 H POC Glucose 111 H 106 H Lactic Acid Calcium Phosphorus 2.10 L Magnesium Total Bilirubin AST ALT Alkaline Phosphatase 182 H Total Protein 6.0 L Albumin 2.9 L Triglycerides Arterial Blood Glucose Arterial Blood Ionized Calcium Digoxin Crossmatch 01/29/21 01/30/21 01/30/21 16:47 04:15 06:55 WBC RBC Hgb Hct MCV MCHC RDW Plt Count Lymph % (Auto) [place] % (Auto) Eos % (Auto) Lymph # (Auto) [place] # (Auto) Eos # (Auto) Seg Neutrophils % Seg Neuts % (Manual) Lymphocytes % (Manual) Monocytes % (Manual) Seg Neutrophils # Seg Neutrophils # Man Lymphocytes # (Manual) Monocytes # (Manual) PT INR ABG pH POC ABG pCO2 POC ABG pO2 ABG pO2 ABG HCO3 ABG O2 Saturation ABG Base Excess ABG Hemoglobin ABG Oxyhemoglobin ABG Sodium ABG Potassium ABG Chloride ABG Glucose Oxyhemoglobin Sodium Potassium Chloride Carbon Dioxide BUN 73 H Creatinine 9.2 H Glucose 119 H POC Glucose 110 H 126 H Lactic Acid Calcium Phosphorus 4.70 H D Magnesium Total Bilirubin AST ALT Alkaline Phosphatase Total Protein Albumin Triglycerides Arterial Blood Glucose Arterial Blood Ionized Calcium Digoxin Crossmatch 01/30/21 01/31/21 01/31/21 18:25 00:51 07:15 WBC RBC Hgb Hct MCV MCHC RDW Plt Count Lymph % (Auto) [place] % (Auto) Eos % (Auto) Lymph # (Auto) [place] # (Auto) Eos # (Auto) Seg Neutrophils % Seg Neuts % (Manual) Lymphocytes % (Manual) Monocytes % (Manual) Seg Neutrophils # Seg Neutrophils # Man Lymphocytes # (Manual) Monocytes # (Manual) PT INR ABG pH POC ABG pCO2 POC ABG pO2 ABG pO2 ABG HCO3 ABG O2 Saturation ABG Base Excess ABG Hemoglobin ABG Oxyhemoglobin ABG Sodium ABG Potassium ABG Chloride ABG Glucose Oxyhemoglobin Sodium Potassium Chloride Carbon Dioxide BUN Creatinine Glucose POC Glucose 117 H 134 H 134 H Lactic Acid Calcium Phosphorus Magnesium Total Bilirubin AST ALT Alkaline Phosphatase Total Protein Albumin Triglycerides Arterial Blood Glucose Arterial Blood Ionized Calcium Digoxin Crossmatch 01/31/21 01/31/21 02/01/21 11:45 23:15 05:51 WBC RBC Hgb Hct MCV MCHC RDW Plt Count Lymph % (Auto) [place] % (Auto) Eos % (Auto) Lymph # (Auto) [place] # (Auto) Eos # (Auto) Seg Neutrophils % Seg Neuts % (Manual) Lymphocytes % (Manual) Monocytes % (Manual) Seg Neutrophils # Seg Neutrophils # Man Lymphocytes # (Manual) Monocytes # (Manual) PT INR ABG pH POC ABG pCO2 POC ABG pO2 ABG pO2 ABG HCO3 ABG O2 Saturation ABG Base Excess ABG Hemoglobin ABG Oxyhemoglobin ABG Sodium ABG Potassium ABG Chloride ABG Glucose Oxyhemoglobin Sodium Potassium Chloride Carbon Dioxide BUN Creatinine Glucose POC Glucose 119 H 120 H 125 H Lactic Acid Calcium Phosphorus Magnesium Total Bilirubin AST ALT Alkaline Phosphatase Total Protein Albumin Triglycerides Arterial Blood Glucose Arterial Blood Ionized Calcium Digoxin Crossmatch 02/01/21 02/02/21 02/02/21 22:05 03:25 06:16 WBC RBC Hgb Hct MCV MCHC RDW Plt Count Lymph % (Auto) [place] % (Auto) Eos % (Auto) Lymph # (Auto) [place] # (Auto) Eos # (Auto) Seg Neutrophils % Seg Neuts % (Manual) Lymphocytes % (Manual) Monocytes % (Manual) Seg Neutrophils # Seg Neutrophils # Man Lymphocytes # (Manual) Monocytes # (Manual) PT INR ABG pH POC ABG pCO2 POC ABG pO2 ABG pO2 ABG HCO3 ABG O2 Saturation ABG Base Excess ABG Hemoglobin ABG Oxyhemoglobin ABG Sodium ABG Potassium ABG Chloride ABG Glucose Oxyhemoglobin Sodium Potassium 3.3 L Chloride Carbon Dioxide BUN 38 H Creatinine 5.8 H Glucose 115 H POC Glucose 118 H 130 H Lactic Acid Calcium Phosphorus 1.80 L Magnesium 1.60 L Total Bilirubin AST ALT Alkaline Phosphatase Total Protein Albumin Triglycerides Arterial Blood Glucose Arterial Blood Ionized Calcium Digoxin Crossmatch 02/02/21 02/02/21 02/03/21 17:29 21:53 04:50 WBC RBC Hgb Hct MCV MCHC RDW Plt Count Lymph % (Auto) [place] % (Auto) Eos % (Auto) Lymph # (Auto) [place] # (Auto) Eos # (Auto) Seg Neutrophils % Seg Neuts % (Manual) Lymphocytes % (Manual) Monocytes % (Manual) Seg Neutrophils # Seg Neutrophils # Man Lymphocytes # (Manual) Monocytes # (Manual) PT INR ABG pH POC ABG pCO2 POC ABG pO2 ABG pO2 ABG HCO3 ABG O2 Saturation ABG Base Excess ABG Hemoglobin ABG Oxyhemoglobin ABG Sodium ABG Potassium ABG Chloride ABG Glucose Oxyhemoglobin Sodium Potassium Chloride Carbon Dioxide BUN Creatinine Glucose POC Glucose 115 H 120 H Lactic Acid Calcium Phosphorus Magnesium 1.60 L Total Bilirubin AST ALT Alkaline Phosphatase Total Protein Albumin Triglycerides Arterial Blood Glucose Arterial Blood Ionized Calcium Digoxin Crossmatch 02/03/21 02/03/21 02/03/21 06:12 18:25 23:47 WBC RBC Hgb Hct MCV MCHC RDW Plt Count Lymph % (Auto) [place] % (Auto) Eos % (Auto) Lymph # (Auto) [place] # (Auto) Eos # (Auto) Seg Neutrophils % Seg Neuts % (Manual) Lymphocytes % (Manual) Monocytes % (Manual) Seg Neutrophils # Seg Neutrophils # Man Lymphocytes # (Manual) Monocytes # (Manual) PT INR ABG pH POC ABG pCO2 POC ABG pO2 ABG pO2 ABG HCO3 ABG O2 Saturation ABG Base Excess ABG Hemoglobin ABG Oxyhemoglobin ABG Sodium ABG Potassium ABG Chloride ABG Glucose Oxyhemoglobin Sodium Potassium Chloride Carbon Dioxide BUN Creatinine Glucose POC Glucose 112 H 112 H 131 H Lactic Acid Calcium Phosphorus Magnesium Total Bilirubin AST ALT Alkaline Phosphatase Total Protein Albumin Triglycerides Arterial Blood Glucose Arterial Blood Ionized Calcium Digoxin Crossmatch 02/04/21 02/04/21 02/04/21 05:40 09:37 12:03 WBC RBC Hgb Hct MCV MCHC RDW Plt Count Lymph % (Auto) [place] % (Auto) Eos % (Auto) Lymph # (Auto) [place] # (Auto) Eos # (Auto) Seg Neutrophils % Seg Neuts % (Manual) Lymphocytes % (Manual) Monocytes % (Manual) Seg Neutrophils # Seg Neutrophils # Man Lymphocytes # (Manual) Monocytes # (Manual) PT INR ABG pH POC ABG pCO2 POC ABG pO2 ABG pO2 ABG HCO3 ABG O2 Saturation ABG Base Excess ABG Hemoglobin ABG Oxyhemoglobin ABG Sodium ABG Potassium ABG Chloride ABG Glucose Oxyhemoglobin Sodium 131 L D 135 L Potassium 3.0 L 3.1 L Chloride 93.4 L 96.7 L Carbon Dioxide BUN 46 H 52 H Creatinine 6.5 H 7.3 H Glucose 363 H 128 H POC Glucose 129 H Lactic Acid Calcium Phosphorus 2.40 L Magnesium 1.50 L 1.60 L Total Bilirubin AST ALT Alkaline Phosphatase Total Protein Albumin Triglycerides Arterial Blood Glucose Arterial Blood Ionized Calcium Digoxin Crossmatch 02/04/21 02/04/21 02/05/21 17:25 21:38 05:19 WBC RBC Hgb Hct MCV MCHC RDW Plt Count Lymph % (Auto) [place] % (Auto) Eos % (Auto) Lymph # (Auto) [place] # (Auto) Eos # (Auto) Seg Neutrophils % Seg Neuts % (Manual) Lymphocytes % (Manual) Monocytes % (Manual) Seg Neutrophils # Seg Neutrophils # Man Lymphocytes # (Manual) Monocytes # (Manual) PT INR ABG pH POC ABG pCO2 POC ABG pO2 ABG pO2 ABG HCO3 ABG O2 Saturation ABG Base Excess ABG Hemoglobin ABG Oxyhemoglobin ABG Sodium ABG Potassium ABG Chloride ABG Glucose Oxyhemoglobin Sodium Potassium Chloride Carbon Dioxide BUN Creatinine Glucose POC Glucose 132 H 108 H 116 H Lactic Acid Calcium Phosphorus Magnesium Total Bilirubin AST ALT Alkaline Phosphatase Total Protein Albumin Triglycerides Arterial Blood Glucose Arterial Blood Ionized Calcium Digoxin Crossmatch 02/05/21 02/05/21 02/05/21 06:30 11:25 16:20 WBC RBC Hgb Hct MCV MCHC RDW Plt Count Lymph % (Auto) [place] % (Auto) Eos % (Auto) Lymph # (Auto) [place] # (Auto) Eos # (Auto) Seg Neutrophils % Seg Neuts % (Manual) Lymphocytes % (Manual) Monocytes % (Manual) Seg Neutrophils # Seg Neutrophils # Man Lymphocytes # (Manual) Monocytes # (Manual) PT INR ABG pH POC ABG pCO2 POC ABG pO2 ABG pO2 ABG HCO3 ABG O2 Saturation ABG Base Excess ABG Hemoglobin ABG Oxyhemoglobin ABG Sodium ABG Potassium ABG Chloride ABG Glucose Oxyhemoglobin Sodium Potassium 3.2 L Chloride 96.5 L Carbon Dioxide BUN 76 H Creatinine 9.6 H Glucose 112 H POC Glucose 118 H 123 H Lactic Acid Calcium Phosphorus Magnesium 1.50 L Total Bilirubin AST ALT Alkaline Phosphatase 177 H Total Protein 6.0 L Albumin 2.9 L Triglycerides Arterial Blood Glucose Arterial Blood Ionized Calcium Digoxin Crossmatch 02/06/21 02/06/21 02/06/21 05:42 06:42 08:18 WBC RBC Hgb Hct MCV MCHC RDW Plt Count Lymph % (Auto) [place] % (Auto) Eos % (Auto) Lymph # (Auto) [place] # (Auto) Eos # (Auto) Seg Neutrophils % Seg Neuts % (Manual) Lymphocytes % (Manual) Monocytes % (Manual) Seg Neutrophils # Seg Neutrophils # Man Lymphocytes # (Manual) Monocytes # (Manual) PT INR ABG pH POC ABG pCO2 POC ABG pO2 ABG pO2 ABG HCO3 ABG O2 Saturation ABG Base Excess ABG Hemoglobin ABG Oxyhemoglobin ABG Sodium ABG Potassium ABG Chloride ABG Glucose Oxyhemoglobin Sodium 133 L Potassium Chloride 92.7 L Carbon Dioxide 19 L BUN 100 H Creatinine 11.9 H Glucose 114 H POC Glucose 118 H 114 H Lactic Acid Calcium Phosphorus 4.70 H Magnesium 1.60 L Total Bilirubin AST ALT Alkaline Phosphatase Total Protein Albumin Triglycerides Arterial Blood Glucose Arterial Blood Ionized Calcium Digoxin Crossmatch 02/06/21 02/07/21 02/07/21 23:22 04:35 04:35 WBC RBC 2.52 L Hgb 8.0 L Hct 22.5 L MCV MCHC 36 H RDW 16.7 H Plt Count Lymph % (Auto) 12.7 L [place] % (Auto) 10.2 H Eos % (Auto) 5.0 H Lymph # (Auto) [place] # (Auto) 1.0 H Eos # (Auto) 0.5 H Seg Neutrophils % 71.6 H Seg Neuts % (Manual) Lymphocytes % (Manual) Monocytes % (Manual) Seg Neutrophils # Seg Neutrophils # Man Lymphocytes # (Manual) Monocytes # (Manual) PT INR ABG pH POC ABG pCO2 POC ABG pO2 ABG pO2 ABG HCO3 ABG O2 Saturation ABG Base Excess ABG Hemoglobin ABG Oxyhemoglobin ABG Sodium ABG Potassium ABG Chloride ABG Glucose Oxyhemoglobin Sodium 135 L Potassium 3.4 L Chloride 95.5 L Carbon Dioxide BUN 59 H Creatinine 8.5 H Glucose POC Glucose 117 H Lactic Acid Calcium Phosphorus Magnesium Total Bilirubin AST ALT Alkaline Phosphatase Total Protein Albumin Triglycerides Arterial Blood Glucose Arterial Blood Ionized Calcium Digoxin Crossmatch 02/07/21 02/07/21 04:35 11:31 WBC RBC Hgb Hct MCV MCHC RDW Plt Count Lymph % (Auto) [place] % (Auto) Eos % (Auto) Lymph # (Auto) [place] # (Auto) Eos # (Auto) Seg Neutrophils % Seg Neuts % (Manual) Lymphocytes % (Manual) Monocytes % (Manual) Seg Neutrophils # Seg Neutrophils # Man Lymphocytes # (Manual) Monocytes # (Manual) PT INR ABG pH POC ABG pCO2 POC ABG pO2 ABG pO2 ABG HCO3 ABG O2 Saturation ABG Base Excess ABG Hemoglobin ABG Oxyhemoglobin ABG Sodium ABG Potassium ABG Chloride ABG Glucose Oxyhemoglobin Sodium Potassium Chloride Carbon Dioxide BUN Creatinine Glucose POC Glucose 117 H Lactic Acid Calcium Phosphorus Magnesium 1.60 L Total Bilirubin AST ALT Alkaline Phosphatase Total Protein Albumin Triglycerides Arterial Blood Glucose Arterial Blood Ionized Calcium Digoxin Crossmatch Allied health notes reviewed: nursing
--- NOTE | 2021-02-07 15:49 | Progress Note ---
Assessment and Plan Assessment: * ESRD previously on peritoneal dialysis; now on back up HD (on peritoneal dialysis for 2 years) * Small bowel obstruction --s/p ex-lap with jejuno-ileal anastamosis --s/p ex lap with extensive lysis of adhesions and two small bowel resections with primary anastamosis for SBO with necrotic segment small bowel. --s/p ex lap, resection of perforated anastamosis, washout and abthera wound vac placement. --s/p ex lap with right hemicolectomy. * Acute respiratory failure, s/p extubation * Septic shock - resolved * Bacteremia - resolved * Anemia of ESRD * Atrial fibrilation, new onset * Post op ileus Plan: * Continue HD MWF via left IJ permcath (12/27) * 3K bath with dialysis * Decreased UF while experiencing ongoing diarrhea * Epogen 10k units w/ dialysis * Rate control per cardiology * Nutrition per primary team * Maintatin MAP >65 * Surgery notes reviewed * He will also require outpatient hemodialysis chair prior to discharge * Elevated BUN likely secondary to catabolic state. Dialysis time was increased to 4 hours. Subjective Date of service: 02/07/21 Principal diagnosis: Ac hypoxemic resp failure; Severe Sepsis; Peritonitis; Acute SBO; ESRD; CHF Interval history: On clear liquids. Notes ongoing diarrhea. Objective - Exam Narrative Exam: General appearance: NAD Eyes: anicteric sclerae HENT: Normocephalic, Atraumatic Neck: supple, tracheal midline, no JVD Lungs: CTAB CV: RRR Abdomen: Soft, distended, periumbilical tenderness Extremities: no edema, no cyanosis Skin: No rash. Psych: Calm Neuro: Following commands - Vital Signs Vital signs: Vital Signs - 12hr 02/07/21 02/07/21 02/07/21 04:42 06:53 07:19 Temperature 98.9 F 98.7 F Pulse Rate 98 H 83 Respiratory 18 16 Rate Respiratory 17 Rate [Anterior Abdomen] Blood Pressure 127/64 Blood Pressure 126/56 [Right] O2 Sat by Pulse 97 97 Oximetry 02/07/21 02/07/21 10:08 11:10 Temperature 98.7 F Pulse Rate 79 79 Respiratory 16 Rate Respiratory Rate [Anterior Abdomen] Blood Pressure 131/55 131/55 Blood Pressure [Right] O2 Sat by Pulse 94 Oximetry - Lab 02/07/21 04:35 02/07/21 04:35 Most recent lab results ABG pH 7.345 pH Units (7.350-7.450) L 01/07/21 17:14 ABG pCO2 40.3 mm Hg 01/07/21 17:14 ABG pO2 67.4 mm Hg (80.0-90.0) L 01/07/21 17:14 ABG HCO3 21.5 mmol/L (20.0-26.0) 01/07/21 17:14 ABG O2 Saturation 94.3 % (95.0-99.0) L 01/07/21 17:14 Calcium 8.7 mg/dL (8.4-10.2) 02/07/21 04:35 Phosphorus 3.30 mg/dL (2.5-4.5) D 02/07/21 04:35 Magnesium 1.60 mg/dL (1.7-2.3) L 02/07/21 04:35 Magnesium Cancelled 02/07/21 04:35 Medications & Allergies - Medications Allergies/Adverse Reactions: Allergies No Known Allergies Allergy (Verified 06/09/20 15:27) Home Medications: Home Medications Medication Instructions Recorded Confirmed Last Taken Type Albuterol Mdi (or & Nicu Only) 2 puff IH QID PRN #1 inhalation 04/01/17 02/05/21 10/31/20 09:00 Rx [ProAir HFA Inhaler] Calcium Acetate 667 mg PO DAILY 04/20/20 02/05/21 10/31/20 09:00 History Centrum Men's Tablet 1 tab PO DAILY 04/20/20 02/05/21 10/31/20 09:00 History Cinacalcet 30 mg PO DAILY 04/20/20 02/05/21 10/31/20 09:00 History Dialyvite with Zinc Tablet 1 tab PO DAILY 04/20/20 02/05/21 10/31/20 09:00 History Magnesium 250 mg PO BID 04/20/20 02/05/21 10/31/20 17:00 History Triamcinolone 0.1% 1 1000units TRANSDERMA DAILY 04/20/20 02/05/21 10/31/20 09:00 History Vit B12/Folic Acid/B6/Aa No.15 1,000 mg PO DAILY 04/20/20 02/05/21 10/31/20 09: 00 History amLODIPine 10 mg PO DAILY 06/09/20 02/05/21 10/31/20 09:00 History AtorvaSTATin 40 mg PO HS 11/01/20 02/05/21 10/31/20 21:00 History Benadryl 25 mg PO HS 11/01/20 02/05/21 10/31/20 21:00 History Diclofenac 1 applic TRANSDERMA QID 11/01/20 02/05/21 10/31/20 19:00 History Fluticasone Propionate 1 spray INTRANASAL DAILY 11/01/20 02/05/21 10/31/20 09:00 History Vitamin D3 2,000 units PO QDAY 11/01/20 02/05/21 10/31/20 09:00 History carvediloL 12.5 mg PO DAILY 11/01/20 02/05/21 10/31/20 09:00 History hydrALAZINE 100 mg PO TID 11/01/20 02/05/21 10/31/20 19:00 History Active Medications: Generic Name Dose Route Start Last Admin Trade Name Freq PRN Reason Stop Dose Admin Acetaminophen 650 mg 12/31/20 15:30 01/21/21 05:28 Acetaminophen 650 Mg Rect Supp HI 650 mg Q6H PRN Administration Non Cardiac Pain or Temp>100.5 Clonidine HCl 0.2 mg 01/11/21 10:00 02/01/21 16:44 Clonidine Tts 0.2 Mg/24 Hr Patch TD 0.2 mg We THOMAS Administration Dextrose 50 ml 01/14/21 17:59 01/18/21 15:10 Dextrose 50% In Water (25gm) 50 Ml Syringe IV 20 ml Q30MIN PRN Administration Hypoglycemia Protocol Digoxin 0.125 mg 02/04/21 10:00 02/06/21 10:45 Digoxin 0.125 Mg Tab PO Not Given Q48HR THOMAS Diphenhydramine HCl 50 mg 01/20/21 10:10 02/01/21 14:15 Diphenhydramine 50 Mg/Ml Vial IV 50 mg Q6H PRN Administration Itching Diphenoxylate HCl/Atropine 1 tab 02/06/21 18:00 02/07/21 12:48 Diphenoxylate/Atropine Tab PO 1 tab Q6H THOMAS Administration Famotidine 10 mg 12/24/20 13:00 02/07/21 11:09 Famotidine 20 Mg/2 Ml Inj IV 10 mg BID THOMAS Administration Fluticasone Propionate 50 mcg 02/07/21 10:00 Fluticasone Propionate Nasal [place] 16 Gm NS QDAY [facility] Haloperidol Lactate 5 mg 12/29/20 14:16 01/22/21 23:56 Haloperidol Lactate 5 Mg/1 Ml Inj IV 5 mg Q12H PRN Administration Agitation Heparin Sodium (Porcine) 5,000 unit 12/24/20 10:00 02/07/21 11:10 Heparin 5,000 Unit/1 Ml Vial SUB-Q 5,000 unit Q12HR THOMAS Administration Hydralazine HCl 10 mg 01/10/21 14:00 02/07/21 11:10 Hydralazine 20 Mg/1 Ml Inj IV 10 mg Q4HR THOMAS Administration Hydrocortisone Acetate 1 applic 02/01/21 18:43 Hydrocortisone 1% Cream 28.4gm TP Q8H PRN Skin Irritation Hydromorphone HCl 0.25 mg 01/09/21 10:53 02/06/21 12:01 Hydromorphone 1 Mg/1 Ml Inj IV 0.25 mg Q6H PRN Administration Pain , Severe (7-10) Sodium Chloride 100 mls @ 999 mls/hr 01/27/21 18:37 Nacl 0.9% IV [place] PRN Hypotension Amino Acids/Electrolytes/Dextrose 2,016 mls @ 84 mls/hr 02/06/21 20:00 02/06/21 21:35 Tpn Adult IV 84 mls/hr DAILY@[email or web address] [facility] Administration Protocol Amino Acids/Electrolytes/Dextrose 2,016 mls @ 84 mls/hr 02/07/21 20:00 Tpn Adult IV 02/08/21 19:59 DAILY@[email or web address] [facility] Protocol Insulin Glargine 5 units 01/18/21 22:00 02/07/21 00:01 Insulin Glargine 100 Units/Ml SUB-Q Not Given QHS [facility] Insulin Human Lispro 0 unit 01/03/21 12:00 02/07/21 12:38 Insulin Lispro 100 Unit/Ml SUB-Q Not Given Q6HR [facility] Protocol Metoprolol Tartrate 5 mg 12/30/20 12:00 02/07/21 11:10 Metoprolol Tartrate 5 Mg/5 Ml Inj IV 5 mg Q4HR THOMAS Administration Morphine Sulfate 2 mg 02/02/21 12:00 02/03/21 13:31 Morphine 2 Mg/1 Ml Inj IV 2 mg Q3H PRN Administration Pain, Moderate (4-6) Ondansetron HCl 4 mg 01/25/21 11:56 02/06/21 22:55 Ondansetron 4 Mg/2 Ml Inj IV 4 mg Q4H PRN Administration Nausea And Vomiting Scopolamine 1 each 01/15/21 11:00 02/05/21 09:51 Scopolamine Transdermal Patch 72 Hr TD 1 each Q3D THOMAS Administration Sodium Chloride 10 ml 12/22/20 22:00 02/06/21 10:45 Sodium Chloride 0.9% 10 Ml Flush Syringe IV 10 ml BID THOMAS Administration Sodium Chloride 10 ml 12/22/20 19:42 01/29/21 02:08 Sodium Chloride 0.9% 10 Ml Flush Syringe IV 10 ml PRN PRN Administration LINE FLUSH
[2021-02-07] MEDS ORDERED: TOTAL PARENTERAL NUTRITION 2,016 ML IV SCH (20:00)
--- NOTE | 2021-02-07 20:30 | Progress Note ---
Assessment and Plan POD#45 s/p ex lap with extensive lysis of adhesions and two small bowel resections with primary anastamosis for SBO with necrotic segment small bowel. POD#36 s/p ex lap, resection of perforated anastamosis, washout and abthera wound vac placement. POD#34 s/p ex lap with right hemicolectomy. POD#32 s/p ex lap, with jejunal-colonic anastamosis and closure of abdomen. Afebrile and stable. - concerned about a leak at his anastamosis. Clinically improved with decreased output that is becoming more serous. 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 Continue HARIS drain suction. HARIS drain must be secured and kept in place. Since HARIS drain has continued to stay about 10ml over the last several days, will continue lower dose of octreotide. Patient will need to be on TPN for the foreseeable future due to inability to use his GI tract to the point of getting adequate nutrition from oral diet at this time. continue g-tube to drainage for decompression. continue clear liquids and closely monitor HARIS drain output. I spoke to case management yesterday. They are sending patient's chart to [facility] facilities to review for possible transfer. Subjective Date of service: 02/07/21 Narrative: No acute events overnight. Patient denies pain nausea vomiting. Patient says Imodium has slowed down diarrhea. Patient says he would like to go home. Patient tolerating clear liquids although he is not taking a lot as he does not want to exacerbate his diarrhea. Objective Vital Signs - 12hr 02/07/21 02/07/21 02/07/21 10:08 11:10 16:40 Temperature 98.7 F Pulse Rate 79 79 81 Respiratory 16 Rate Blood Pressure 131/55 131/55 129/53 O2 Sat by Pulse 94 Oximetry 02/07/21 02/07/21 02/07/21 16:41 17:54 18:04 Temperature Pulse Rate 81 88 88 Respiratory Rate Blood Pressure 129/53 129/62 129/62 O2 Sat by Pulse 100 Oximetry 02/07/21 19:35 Temperature 98.6 F Pulse Rate 91 H Respiratory 18 Rate Blood Pressure 126/64 O2 Sat by Pulse 98 Oximetry - General physical appearance well developed, well nourished, no distress, no pain - Respiratory normal expansion, normal respiratory effort - Abdomen soft, not tender, other (HARIS drain 15ml brown fluid. G-tube light bilious. midline incision granulating well) - Labs 02/07/21 04:35 02/07/21 04:35 Diabetes panel 02/07/21 Range/Units 04:35 Sodium 135 L (137-145) mmol/L Potassium 3.4 L (3.6-5.0) mmol/L Chloride 95.5 L (98-107) mmol/L Carbon Dioxide 25 (22-30) mmol/L BUN 59 H (9-20) mg/dL Creatinine 8.5 H (0.8-1.3) mg/dL Glucose 88 (75-100) mg/dL Calcium 8.7 (8.4-10.2) mg/dL Calcium panel 02/07/21 Range/Units 04:35 Calcium 8.7 (8.4-10.2) mg/dL Phosphorus 3.30 D (2.5-4.5) mg/dL Pituitary panel 02/07/21 Range/Units 04:35 Sodium 135 L (137-145) mmol/L Potassium 3.4 L (3.6-5.0) mmol/L Chloride 95.5 L (98-107) mmol/L Carbon Dioxide 25 (22-30) mmol/L BUN 59 H (9-20) mg/dL Creatinine 8.5 H (0.8-1.3) mg/dL Glucose 88 (75-100) mg/dL Calcium 8.7 (8.4-10.2) mg/dL Adrenal panel 02/07/21 Range/Units 04:35 Sodium 135 L (137-145) mmol/L Potassium 3.4 L (3.6-5.0) mmol/L Chloride 95.5 L (98-107) mmol/L Carbon Dioxide 25 (22-30) mmol/L BUN 59 H (9-20) mg/dL Creatinine 8.5 H (0.8-1.3) mg/dL Glucose 88 (75-100) mg/dL Calcium 8.7 (8.4-10.2) mg/dL
[2021-02-07] MEDS: TOTAL PARENTERAL NUTRITION 2,016 ML IV SCH (20:51)
[2021-02-08] MEDS: INSULIN LISPRO 100 UNIT/ML SUB-Q SCH ×4 (00:38→22:47)
[2021-02-08] MEDS: DIPHENOXYLATE/ATROPINE TAB PO SCH ×4 (03:54→18:02)
[2021-02-08] MEDS: hydrALAZINE 20 MG/1 ML INJ IV SCH ×6 (04:43→22:25)
[2021-02-08] MEDS: METOPROLOL TARTRATE 5 MG/5 ML INJ IV SCH ×6 (04:43→22:25)
--- NOTE | 2021-02-08 08:07 | Progress Note ---
Assessment and Plan Assessment and plan: Severe Sepsis with shock Streptococcus bovis bacteremia/Prevotella bacteremia Gwendolyn albicans tracheal aspirate Small bowel obstruction/necrotic bowel s/p ex lap with extensive lysis of adhesions, 2 small bowel resections with primary anastomosis, right hemicolectomy, jejunal colonic anastomosis, segmental small bowel resection Postoperative ileus Atrial fibrillation with RVR Leukocytosis Hypochloremia Gwendolyn albicans in tracheal aspirate from 12/24 ESRD on PD, PermCath to be placed Transaminitis Systolic CHF(EF 35%) Crohn's disease Hypertension Hypokalemia and hypophosphatemia -[facility], surgery, infectious disease, nephrology, vascular surgery, cardiology consulted, appreciate recommendations -12/24 S/p ex lap with extensive expectations, 2 small bowel resections with primary anastomosis with surgery on 12/23 -s/p PICC and Permacath placement with vascular surgery on 12/27 -Extubated on 12/28, reintubated 12/31 for respiratory distress and extubated 01/08 -12/29 echocardiogram shows moderate concentric LVH, small pericardial effusion, transmitral Doppler flow pattern is grade 1 abnormal relaxation pattern, left- ventricular systolic function normal, LVEF 50 to 55%, no wall motion abnormalities. -01/01 CT abdomen/pelvis shows small pericardial effusion, mild coronary artery atherosclerotic calcification, small bilateral pleural effusions with associated volume loss, no convincing evidence of bowel obstruction or inflammation, postoperative changes from interval/recent midline laparotomy with a moderate amount of free fluid throughout the abdomen, small amount of dependent free air presumably postoperative -01/02 s/p ex lap, resection of perforated anastamosis, washout and abthera wound vac placement. -01/04 s/p ex lap with right hemicolectomy. -01/06 s/p exploratory laparotomy, Jejunal colonic anastomosis, Segmental small bowel resection. -s/p Vasopressor support with Levophed and vasopressin -Transitioned to HD from PD -HD per nephro, Epogen with HD -Strict NPO -cont TPN, Octreotide drip -s/p NGT to LIWS, now placed on G-tube for decompression - s/p rectal tube -s/p IV antibiotics -Tobacco abuse cessation counseling -Trend CBC, BMP DVT/GI prophylaxis: PPI, heparin subcu, SCDs to bilateral lower extremities while in bed Brief Course: This is a 60 YO Male with ESRD on PD, GERD, Crohn's Disease, Nicotine Dependence, HTN, Systolic CHF(EF 35%) who presented to the emergency department on 12/22 with complaints of abdominal pain which began shortly after eating fast food rated 10/10 which is periumbilical, constant, associated with fever, nausea and multiple sites of vomiting and self-reported inability to undergo PD. In the emergency room patient underwent a CT scan of the abdomen/pelvis which revealed evidence of partial small bowel obstruction, symptoms were consistent with bacterial peritonitis. Patient was admitted to the hospital service with sepsis, peritonitis, and small bowel obstruction with consults to general surgery, nephrology, infectious disease and [facility]. Daily clinical course: 12/23. Patient had temperature 101.2 F, tachycardia and elevated lactic acid on admission. Meet sepsis criteria. Started on IV antibiotics. ID has been consulted. Surgery consulted this a.m.-advised laparoscopy. He remains on NG tube connected to suction. 12/24. Patient was noted to have peritonitis yesterday and patient undergoing exploratory laparotomy. Patient remained intubated after procedure and is in ICU. Now on broad-spectrum antibiotics. ID on board. 12/25. Remains mechanically ventilated and sedated. Temp 103 Fahrenheit. Antibiotics broadened-ID added fluconazole and Flagyl. Blood cultures ordered. Plan to repeat CT abdomen tomorrow if not better. Surgery following. 12/26: Patient remains on mechanical ventilation on CMV tidal line 550, rate of 14, PEEP of 8 and 30% FiO2 and sedated on fentanyl 4 micrograms. Today we will remove his Jeffery and [facility] dropped his rate controlled him on CPAP. We will trend CBC given recent drop in H/H. 12/27: Patient remains intubated on CMV tidal volume 550, rate 12, PEEP 8 on 30% FiO2 at the time my examination. Patient's TPN will be changed to PPN. Adebayo dueñas's fentanyl drip will be changed to IV push fentanyl and have a permacath placed today and midline. Patient was placed on a spontaneous breathing trial was switched back to CMV prior to procedure. 12/28: Patient on fentanyl but awake and follows commands. At the time of my examination he was on a CPAP trial and is scheduled to receive HD today. s/o permacath and PICC placement with vascular yesterday. His blood culture grew Prevotella and addition to Streptococcus bovis. This evening Dr. Spicer attempted to extubate the patient and his heart rate went to the 180s. Stat EKG obtained and cardiology consulted. 12/29: Patient was started on amiodarone IV for A. fib RVR yesterday and today he is more rate controlled into the 70s and 80s. Patient was extubated yesterday and is currently on Ventimask. Patient will be transferred to [facility]. Patient continues to be n.p.o. with TPN and NG tube to LIS. He is hypokalemic today which was repleted. 12/30; patient was on IV amiodarone for treatment with RVR, rate is controlled. Patient was off oxygen. patient is n.p.o. and on TPN. Surgery is following the patient. 12/31: Patient was intubated overnight for respiratory distress and this morning on examination he was on assist control tidal volume 450, rate 20, PEEP 6, 100% FiO2 and RT was getting a ABG to adjust vent settings. Patient had a acute bump in WBC and per ID recommendations we will obtain a CT abdomen/pelvis if leukocytosis persist. Patient is on TPN and sedated with Levophed. Patient is also on vasopressor support with Levophed. Per surgery his ileus is resolving however will maintain OGT to LIWS. 01/01: Patient was started on a vasopressin yesterday late evening. This morning patient is on 20 mcg of Levophed and 0.03 vasopressin and sedated on 20 mcg of propofol. Patient WBC increased today and he is hypokalemic. We will treat hyperkalemia. Patient had a CT chest and abdomen/pelvis pending. The time examination total of 450, rate 20, PEEP of 6 and 35 percent FiO2. Per RN, Dr Pollock has stated that the patient will be returning to the OR today for likely anastomosis seen on CT abdomen/pelvis. 01/02: Patient noted, WBC improving, but noted to have anemia, will transfuse additional unit of Blood and repeat H/H. continue supportive care. 01/03: Continue to wean pressors, ABX PER ID, patient to return to OR today for washout and possible closure, CONTINUE TPN 01/04: Continues to show some improvement. Today is POD#12 s/p ex lap with extensive lysis of adhesions and two small bowel resections with primary anastamosis for SBO with necrotic segment small bowel. POD#3 s/p ex lap, resection of perforated anastamosis, washout and abthera wound vac placement. POD#1 s/p ex lap with right hemicolectomy. Surgery planning to take back to the OR on Saturday with the hope to anastamos ileum to transverse colon and close abdomen. keep NGT to suction. Pt in deep sedation due to open abdomen. Per ID - Continue IV Zosyn, renally dosed for Strep bacteremia treatment till 01/06/2021 -On TPN 01/05: Patient continues on HD, anticipate return to OR tomorrow for closure and anastemosis. Continues with deep sedation due to open abdomen 01/06: Continue supportive care, monitor pressures and electrolytes. He is post op Exploratory laparotomy, 2. Jejunal colonic anastomosis,3. Segmental small bowel resection and anastemosis closure today. Continue wound vac 01/07: Continue supportive care, Today is POD#15 s/p ex lap with extensive lysis of adhesions and two small bowel resections with primary anastamosis for SBO wit h necrotic segment small bowel. POD#6 s/p ex lap, resection of perforated anastamosis, washout and abthera wound vac placement. POD#4 s/p ex lap with right hemicolectomy. POD #1 exploratory laparotomy, 2. Jejunal colonic anastomosis,3. Segmental small bowel resection. Continue to monitor and sruthi ect electrolytes. Patient remains on fentanyl and TPN with lipids. Still hypoactive bowel sounds. 16: Patient now extubated, asked when he can go home, Still lethargic. Continue wound management, wound vac, Will need Rehab eval prior to discharge. 01/09: Patient remains on TPN, was started on labetalol drip per cardiology, patient had uncontrolled hypertension today however he cannot be given p.o. medications ileus resolves per surgery. Patient received hemodialysis today. NG tube remains to low intermittent suction. 01/10: Patient has some leukocytosis, slight hypokalemia and hyponatremia, metabolic acidosis. NG tube to LIWS, continue TPN. Patient will be downgraded to IMCU today. [facility] is working on placement. Will change frequency of hydralazine and discontinue labetalol drip. We will obtain a.m. BMP/mag/Phos and CBC. Infectious disease will like to start Zosyn if leukocytosis continues to worsen. 01/11: Patient leukocytosis has slightly improved potassium with in normal limits and other electrolytes are elevated but patient is scheduled for HD today. Remains on RA and A,A,Ox4. BP better controlled but remains elevated and we will increase clonidine dose. 01/12/2021; patient's blood pressure is better after dialysis and as needed IV medications and clonidine patch. Patient is followed by general surgery. Patient was alert and oriented and asked when he is going home. 01/13: Surgery is concerned about a leak at his anastamosis given increased output and will treat as controlled fistula and start an octreotide drip. And per surgery if he requires operative intervention will likely need to be left in discontinuity and eventual ileostomy as he has already failed two anastamoses. Patient still has tongue swelling and slurred speech. He is on Benadryl. 01/14: Patient's tongue swelling is improved, patient is alert and oriented, CAM ICU negative. Continue NG tube to low wall intermittent suction. Leukocytosis is improving. Hypomagnesemia resolved. Epogen with HD 01/15: Patient tongue swelling is much improved, bladder scan completed by bedside RN and he needed to be straight cathed. NGT output decreased. Leukocytosis improving. Patient has been having episodes of hypoglycemia during the day and he is on cyclic TPN, Lantus rescheduled to nightly and dosage decreased. 01/16: Continue management per ID and surgery. Will defer repeat CT of the abdomen to the team surgery has been approved by nephrology. Continue current diet and advance all to ice if okay with surgery discussed with nursing staff. 01/17: Discussed surgical recommendation of strict n.p.o. except for small amount of ice as patient has already failed to anastomosis. And risk for additional surgery with tissues were extremely friable from previous scar. He continues on octreotide drip to slow down GI output HARIS drain remains in place with NG suction for decompression. Patient verbalized understanding although stressed about being discharged. We will continue IMCU care unless otherwise advised by surgery. Prognosis remains guarded continue to monitor electrolytes considering GI output. 01/18: Continue supportive care, BP mildly elevated, continue to monitor, con tinue current therapy, if no return to PO soon may consider Increasing clonidine to 0.3, PO when ok with surgery. 01/19:Continue supportive care, Per ID continue IV Zosyn, plan to stop at 3 weeks from last surgery end date: 01/24/2021. Other management per surgery. Continue TPN. 01/20: Discussed with Surgery, will continue current management. Advised patient of the findings and plan. 01/21: Continue supportive care. Continue management per surgery advance diet when okay with surgery. Plan of care discussed with the patient in detail. 01/22: NG tube to be replaced explained to the patient why this is important. I agree with PT OT discussed with nursing staff very important to let the PT team know that they should manage HARIS drain while patient is ambulating so that he does not come out. Continue current management. Change in ocreotide to q8h and d/c drip NOTED 01/23: Continue supportive care, HD today, counselling provided to the patient on compliance with medical management 01/24: Replace NGT, Continue management per Surgery. POD 32. Mild hypokalemia noted, will replace. 01/25: Brief summary patient is a 60-year-old male admitted with abdominal pain and noted to have necrotic bowel concerning for PD associated peritonitis. Catheter was placed to convert to HD. Patient also underwent multiple surgical interventions. Initial cultures showed Streptococcus bovis bacteremia and Prevotella bacteremia a COLIN was without vegetations repeat blood cultures have b een negative. Part of the surgery is included ex lap, resection of perforated anastomosis, washout and a better wound VAC placement on 01/01. While progress has remained slow if has indeed shown some improvement. Patient is agitated about being in the hospital but understands the care management been provided his vital to his health and to prevent further surgeries. The NG tube has been pulled out 2 days ago he vehemently refused the tube being placed back but after a day of nausea with associated vomiting he was accepting of the chest tube to put back. He continues on TPN. We will continue to monitor electrolytes and correct as needed. This a.m. and erroneous blood was obtained likely from the same line as TPN repeat was done which showed normalizing factors. Patient completed antibiotics on 01/25/2020 . 01/26 Patient with severe sepsis with septic shock, small bowel obstruction, necrotic bowel s/p multiple surgeries. He complains of abdominal pain. No fever currently. He asked me when is he going home and i explained that he is not yet stable for discharge 01/27 Patient with severe sepsis with septic shock, small bowel obstruction, necrotic bowel s/p multiple surgeries. He complains of abdominal pain. No fever currently. Paroxysmal atrial fib managed by cardiology 01/28 Patient with severe sepsis with septic shock, small bowel obstruction, necrotic bowel s/p multiple surgeries. No fever currently. No abd pain currently. I discussed with Surgeon, Dr. Pollock. Continue current management. He also has paroxysmal afib, managed by Cardiology. 01/29 Patient with severe sepsis with septic shock, small bowel obstruction, necrotic bowel s/p multiple surgeries. No fever currently. No abd pain currently. I discussed with Surgeon, Dr. Pollock, yesterday. Continue current management. He also has paroxysmal afib, managed by Cardiology. He is on Metoprolol, Digoxin, Clonidine 01/30 Patient with severe sepsis with septic shock, small bowel obstruction, n ecrotic bowel s/p multiple surgeries. Patient is a 60-year-old male admitted with abdominal pain and noted to have necrotic bowel concerning for PD associated peritonitis. Catheter was placed to convert to HD. Patient also underwent multiple surgical interventions. Initial cultures showed Strep tococcus bovis bacteremia and Prevotella bacteremia a COLIN was without vegetations repeat blood cultures have been negative. Part of the surgery is included ex lap, resection of perforated anastomosis, washout and a better wound VAC placement on 01/01. While progress has remained slow if has indeed shown some improvement. Patient is agitated about being in the hospital but understands the care management been provided his vital to his health and to prevent further surgeries. He continues on TPN. No fever currently. Less abdominal pain. Discussed with Surgeon, Dr. Pollock, few days ago. Continue current management. He also has paroxysmal afib, managed by Cardiology. He is on Metoprolol, D igoxin, Clonidine. ESRD on dialysis managed by Nephrology. 01/31: Continue HARIS drain suction. Ongoing treatment for anastomotic leak/controlled low output fistula. Maintain LIWS to NGT and monitor output. continue q 8h ocreotide. cont TPN. Defer to general surgery for NG tube discontinuation. 02/01: planned for g-tube placement for gastric decompression. Removed NG tube today. S/p HD -tolerated well : Status post G-tube placement today, resume TPN, patient is off from rectal tube. Continue supportive care and follow general surgery recommendation for discharge planning. Hemodialysis per schedule 02/03 -02/05: cont TPN, G-tube suction, Continue supportive care and follow general surgery recommendation for discharge planning. Hemodialysis per schedule. 02/06: Per surgery Anastamotic leak slowing down and is a controlled fistula. Continue HARIS drain suction. Since HARIS drain has continued to stay about 10ml over the last several days, plan to continue lower dose of octreotide. continue g-tube to drainage for decompression. continue clear liquids and closely monitor HARIS drain output. patient need LTAC placement. Continue to replace electrolytes and monitor phosphate level 02/07/2021; Per surgery Anastamotic leak slowing down and is a controlled fistula. Continue HARIS drain suction. Since HARIS drain has continued to stay about 10ml over the last several days, plan to continue lower dose of octreotide. continue g-tube to drainage for decompression. continue clear liquids and closely monitor HARIS drain output. patient need LTAC placement. Continue to replace electrolytes and monitor phosphate level. 02/08/2021; patient need to be transferred to LTAC. Patient expressed he wants to go home. History Interval history: Patient was seen and evaluated this morning Patient on TPN, tolerated clear liquid diet HARIS tube in place Hospitalist Physical - Physical exam Narrative exam: Patient was not in cardiopulmonary distress The patient appeared well nourished and normally developed. Vital signs as documented. Head exam is unremarkable. No scleral icterus . Neck is without jugular venous distension, thyromegaly, or carotid bruits. Lungs are clear to auscultation. Cardiac exam reveals regular rate and Rhythm. Abdominal exam reveals clean midline surgical laparatomy wound. HARIS tube in place Extremities are nonedematous and both femoral and pedal pulses are normal. BOTTOM IRONER: Alert and oriented 3. No focal weakness. - Constitutional Vitals: Temp Pulse Resp BP Pulse Ox 98.7 F 85 16 139/63 96 02/08/21 07:08 02/08/21 07:08 02/08/21 07:08 02/08/21 07:08 02/08/21 07:08 General appearance: Present: no acute distress HEART Score - HEART Score Troponin: Troponin T 0.021 ng/mL (0.00-0.029) 12/22/20 14:38 Results - Labs CBC & Chem 7: 02/07/21 04:35 02/08/21 06:45 Labs: Laboratory Last Values WBC 9.6 K/mm3 (4.5-11.0) 02/07/21 04:35 RBC 2.52 M/mm3 (3.65-5.03) L 02/07/21 04:35 Hgb 8.0 gm/dl (11.8-15.2) L 02/07/21 04:35 Hct 22.5 % (35.5-45.6) L 02/07/21 04:35 MCV 89 fl (84-94) 02/07/21 04:35 MCH 32 pg (28-32) 02/07/21 04:35 MCHC 36 % (32-34) H 02/07/21 04:35 RDW 16.7 % (13.2-15.2) H 02/07/21 04:35 Plt Count 230 K/mm3 (140-440) 02/07/21 04:35 Lymph % (Auto) 12.7 % (13.4-35.0) L 02/07/21 04:35 Coffee % (Auto) 10.2 % (0.0-7.3) H 02/07/21 04:35 Eos % (Auto) 5.0 % (0.0-4.3) H 02/07/21 04:35 Baso % (Auto) 0.5 % (0.0-1.8) 02/07/21 04:35 Lymph # (Auto) 1.2 K/mm3 (1.2-5.4) 02/07/21 04:35 Coffee # (Auto) 1.0 K/mm3 (0.0-0.8) H 02/07/21 04:35 Eos # (Auto) 0.5 K/mm3 (0.0-0.4) H 02/07/21 04:35 Baso # (Auto) 0.0 K/mm3 (0.0-0.1) 02/07/21 04:35 Add Manual Diff Complete 01/10/21 09:26 Total Counted 100 01/10/21 09:26 Seg Neutrophils % 71.6 % (40.0-70.0) H 02/07/21 04:35 Seg Neuts % (Manual) 95.0 % (40.0-70.0) H 01/10/21 09:26 Band Neutrophils % 1.0 % 01/10/21 09:26 Lymphocytes % (Manual) 3.0 % (13.4-35.0) L 01/10/21 09:26 Reactive Lymphs % (Man) 1.0 % 12/29/20 05:16 Monocytes % (Manual) 1.0 % (0.0-7.3) 01/10/21 09:26 Eosinophils % (Manual) 2.0 % (0.0-4.3) 12/29/20 05:16 Metamyelocytes % 2.0 % 12/29/20 05:16 Nucleated RBC % Not Reportable 01/10/21 09:26 Seg Neutrophils # 6.9 K/mm3 (1.8-7.7) 02/07/21 04:35 Seg Neutrophils # Man 17.3 K/mm3 (1.8-7.7) H 01/10/21 09:26 Band Neutrophils # 0.2 K/mm3 01/10/21 09:26 Lymphocytes # (Manual) 0.5 K/mm3 (1.2-5.4) L 01/10/21 09:26 Abs React Lymphs (Man) 0.0 K/mm3 01/10/21 09:26 Monocytes # (Manual) 0.2 K/mm3 (0.0-0.8) 01/10/21 09:26 Eosinophils # (Manual) 0.0 K/mm3 (0.0-0.4) 01/10/21 09:26 Basophils # (Manual) 0.0 K/mm3 (0.0-0.1) 01/10/21 09:26 Metamyelocytes # 0.0 K/mm3 01/10/21 09:26 Myelocytes # 0.0 K/mm3 01/10/21 09:26 Promyelocytes # 0.0 K/mm3 01/10/21 09:26 Blast Cells # 0.0 K/mm3 01/10/21 09:26 WBC Morphology Not Reportable 01/10/21 09:26 Hypersegmented Neuts Not Reportable 01/10/21 09:26 Hyposegmented Neuts Not Reportable 01/10/21 09:26 Hypogranular Neuts Not Reportable 01/10/21 09:26 Smudge Cells Not Reportable 01/10/21 09:26 Toxic Granulation 1+ 01/10/21 09:26 Toxic Vacuolation Not Reportable 01/10/21 09:26 Dohle Bodies Not Reportable 01/10/21 09:26 Pelger-Huet Anomaly Not Reportable 01/10/21 09:26 Lamar Rods Not Reportable 01/10/21 09:26 Platelet Estimate Consistent w auto 01/10/21 09:26 Clumped Platelets Not Reportable 01/10/21 09:26 Plt Clumps, EDTA Not Reportable 01/10/21 09:26 Large Platelets Not Reportable 01/10/21 09:26 Giant Platelets Not Reportable 01/10/21 09:26 Platelet Satelliting Not Reportable 01/10/21 09:26 Plt Morphology Comment Not Reportable 01/10/21 09:26 RBC Morphology Not Reportable 01/10/21 09:26 Dimorphic RBCs Not Reportable 01/10/21 09:26 Polychromasia Not Reportable 01/10/21 09:26 Hypochromasia Not Reportable 01/10/21 09:26 Poikilocytosis Not Reportable 01/10/21 09:26 Anisocytosis 1+ 01/10/21 09:26 Microcytosis Not Reportable 01/10/21 09:26 Macrocytosis Not Reportable 01/10/21 09:26 Spherocytes Not Reportable 01/10/21 09:26 Pappenheimer Bodies Not Reportable 01/10/21 09:26 Sickle Cells Not Reportable 01/10/21 09:26 Target Cells Not Reportable 01/10/21 09:26 Tear Drop Cells Not Reportable 01/10/21 09:26 Ovalocytes Not Reportable 01/10/21 09:26 Helmet Cells Not Reportable 01/10/21 09:26 [place] Bodies Not Reportable 01/10/21 09:26 [place] Rings Not Reportable 01/10/21 09:26 [place] Cells Not Reportable 01/10/21 09:26 Bite Cells Not Reportable 01/10/21 09:26 Crenated Cell Not Reportable 01/10/21 09:26 Elliptocytes Not Reportable 01/10/21 09:26 Acanthocytes (Spur) Not Reportable 01/10/21 09:26 Rouleaux Not Reportable 01/10/21 09:26 Hemoglobin C Crystals Not Reportable 01/10/21 09:26 Schistocytes Not Reportable 01/10/21 09:26 Malaria parasites Not Reportable 01/10/21 09:26 Lucas Bodies Not Reportable 01/10/21 09:26 Hem Pathologist Commnt No 01/10/21 09:26 PT 16.9 Sec. (12.2-14.9) H 01/01/21 12:45 INR 1.39 (0.87-1.13) H 01/01/21 12:45 APTT 25.1 Sec. (24.2-36.6) 12/22/20 14:38 ABG pH 7.345 pH Units (7.350-7.450) L 01/07/21 17:14 POC ABG pCO2 41.4 mmHg (32.0-48.0) 01/07/21 03:07 ABG pCO2 40.3 mm Hg 01/07/21 17:14 POC ABG pO2 94.5 mmHg (83-108) 01/07/21 03:07 ABG pO2 67.4 mm Hg (80.0-90.0) L 01/07/21 17:14 POC ABG HCO3 22.7 01/07/21 03:07 ABG HCO3 21.5 mmol/L (20.0-26.0) 01/07/21 17:14 ABG O2 Saturation 94.3 % (95.0-99.0) L 01/07/21 17:14 ABG O2 Content 11.6 (0.0-44) 01/07/21 17:14 POC ABG Base Excess -2.7 01/07/21 03:07 ABG Base Excess -3.9 mmol/L (-2.0-3.0) L 01/07/21 17:14 ABG Hemoglobin 8.9 gm/dl (14.0-18.0) L 01/07/21 17:14 ABG Oxyhemoglobin 96.6 (94-98) 01/07/21 03:07 ABG Carboxyhemoglobin 1.5 % (0.0-5.0) 01/07/21 17:14 ABG Methemoglobin 0.6 % (0.0-1.5) 01/07/21 17:14 ABG Sodium 135.6 mmol/L (136.0-145.0) L 01/07/21 03:07 ABG Potassium 4.0 mmol/L (3.40-4.50) 01/07/21 03:07 ABG Chloride 102.0 mmol/L (98-107) 01/07/21 03:07 ABG Glucose 181 mg/dL (65-95) H 01/07/21 03:07 Oxyhemoglobin 92.3 % (95.0-99.0) L 01/07/21 17:14 Carboxyhemoglobin 0.7 (0.5-1.5) 01/07/21 03:07 FiO2 21 % 01/07/21 17:14 FiO2 % 45.0 01/07/21 03:07 Sodium 134 mmol/L (137-145) L 02/08/21 06:45 Potassium 3.5 mmol/L (3.6-5.0) L 02/08/21 06:45 Chloride 94.2 mmol/L (98-107) L 02/08/21 06:45 Carbon Dioxide 25 mmol/L (22-30) 02/08/21 06:45 Anion Gap 18 mmol/L 02/08/21 06:45 BUN 78 mg/dL (9-20) H 02/08/21 06:45 Creatinine 11.4 mg/dL (0.8-1.3) H 02/08/21 06:45 Estimated GFR 6 ml/min 02/08/21 06:45 BUN/Creatinine Ratio 7 % 02/08/21 06:45 Glucose 101 mg/dL (75-100) H 02/08/21 06:45 POC Glucose 113 mg/dL (70-105) H 02/08/21 04:56 Lactic Acid 1.10 mmol/L (0.7-2.0) 01/14/21 05:39 Calcium 9.0 mg/dL (8.4-10.2) 02/08/21 06:45 Phosphorus 3.20 mg/dL (2.5-4.5) 02/08/21 06:45 Magnesium 2.00 mg/dL (1.7-2.3) 02/08/21 06:45 Total Bilirubin 0.50 mg/dL (0.1-1.2) 02/05/21 06:30 AST 19 units/L (5-40) 02/05/21 06:30 ALT 22 units/L (7-56) 02/05/21 06:30 Alkaline Phosphatase 177 units/L (35-129) H 02/05/21 06:30 Ammonia 30.0 umol/L (25-60) 12/22/20 14:38 Troponin T 0.021 ng/mL (0.00-0.029) 12/22/20 14:38 Total Protein 6.0 g/dL (6.3-8.2) L 02/05/21 06:30 Albumin 2.9 g/dL (3.9-5) L 02/05/21 06:30 Albumin/Globulin Ratio 0.9 % 02/05/21 06:30 Triglycerides 72 mg/dL (2-149) 01/30/21 04:15 Lipase 41 units/L (13-60) 12/22/20 14:38 Procalcitonin > 200.00 ng/mL (<0.15) 12/24/20 15:06 TSH 1.470 mlU/mL (0.270-4.200) 12/28/20 19:44 Arterial Blood Glucose 181 mg/dL (65-95) H 01/07/21 03:07 Arterial Blood Ionized Calcium 4.3 mg/dL (4.6-5.3) L 01/07/21 03:07 Urine Color Yellow (Yellow) 12/22/20 18:53 Urine Turbidity Clear (Clear) 12/22/20 18:53 Urine pH 7.0 (5.0-7.0) 12/22/20 18:53 Ur Specific [place] 1.012 (1.003-1.030) 12/22/20 18:53 Urine Protein >500 mg/dL (Negative) 12/22/20 18:53 Urine Glucose (UA) Neg mg/dL (Negative) 12/22/20 18:53 Urine Ketones Neg mg/dL (Negative) 12/22/20 18:53 Urine Blood Neg (Negative) 12/22/20 18:53 Urine Nitrite Neg (Negative) 12/22/20 18:53 Urine Bilirubin Neg (Negative) 12/22/20 18:53 Urine Urobilinogen < 2.0 mg/dL (<2.0) 12/22/20 18:53 Ur Leukocyte Esterase Neg (Negative) 12/22/20 18:53 Urine WBC (Auto) < 1.0 /HPF (0.0-6.0) 12/22/20 18:53 Urine RBC (Auto) 1.0 /HPF (0.0-6.0) 12/22/20 18:53 Fluid Type Dialysate 12/22/20 Unknown Fluid Color Colorless 12/22/20 Unknown Fluid Appearance Cloudy 12/22/20 Unknown Fluid WBC 208 /mm3 12/22/20 Unknown Fluid RBC 45 /mm3 12/22/20 Unknown Fluid Seg Neutrophils 82.0 % 12/22/20 Unknown Fluid Lymphocytes 11.0 % 12/22/20 Unknown Fluid Reactive Lymphs 0 % 12/22/20 Unknown Fluid Monocytes 7.0 % 12/22/20 Unknown Fluid Eosinophils 0 % 12/22/20 Unknown Fluid Basophils 0 % 12/22/20 Unknown Random Vancomycin 13.7 ug/mL (0-40.0) 12/26/20 Unknown Digoxin 0.9 ng/mL (0.9-2.0) 02/04/21 05:40 Hepatitis A IgM Ab Non-reactive (NonReactive) 02/02/21 12:41 Hep Bs Antigen Non-reactive (Negative) 02/02/21 12:41 Hep B Core IgM Ab Non-reactive (NonReactive) 02/02/21 12:41 Hepatitis C Antibody Non-reactive (NonReactive) 02/02/21 12:41 Blood Type A POSITIVE 01/06/21 07:10 Antibody Screen Negative 01/06/21 07:10 Crossmatch See Detail 01/06/21 07:10 Jeffery/IV: Voiding Method Urinal Active Medications - Current Medications Current Medications: Generic Name Dose Route Start Last Admin Trade Name Freq PRN Reason Stop Dose Admin Acetaminophen 650 mg 12/31/20 15:30 01/21/21 05:28 Acetaminophen 650 Mg Rect Supp [place] 650 mg Q6H PRN Administration Non Cardiac Pain or Temp>100.5 Clonidine HCl 0.2 mg 01/11/21 10:00 02/01/21 16:44 Clonidine Tts 0.2 Mg/24 Hr Patch TD 0.2 mg We THOMAS Administration Dextrose 50 ml 01/14/21 17:59 01/18/21 15:10 Dextrose 50% In Water (25gm) 50 Ml Syringe IV 20 ml Q30MIN PRN Administration Hypoglycemia Protocol Digoxin 0.125 mg 02/04/21 10:00 02/06/21 10:45 Digoxin 0.125 Mg Tab PO Not Given Q48HR THOMAS Diphenhydramine HCl 50 mg 01/20/21 10:10 02/01/21 14:15 Diphenhydramine 50 Mg/Ml Vial IV 50 mg Q6H PRN Administration Itching Diphenoxylate HCl/Atropine 1 tab 02/06/21 18:00 02/08/21 06:33 Diphenoxylate/Atropine Tab PO 1 tab Q6H THOMAS Administration Famotidine 10 mg 12/24/20 13:00 02/07/21 22:37 Famotidine 20 Mg/2 Ml Inj IV 10 mg BID THOMAS Administration Fluticasone Propionate 50 mcg 02/07/21 10:00 Fluticasone Propionate Nasal [place] 16 Gm NS QDAY [facility] Haloperidol Lactate 5 mg 12/29/20 14:16 01/22/21 23:56 Haloperidol Lactate 5 Mg/1 Ml Inj IV 5 mg Q12H PRN Administration Agitation Heparin Sodium (Porcine) 5,000 unit 12/24/20 10:00 02/07/21 22:41 Heparin 5,000 Unit/1 Ml Vial SUB-Q 5,000 unit Q12HR [facility] Administration Hydralazine HCl 10 mg 01/10/21 14:00 02/08/21 06:27 Hydralazine 20 Mg/1 Ml Inj IV 10 mg Q4HR [facility] Administration Hydrocortisone Acetate 1 applic 02/01/21 18:43 Hydrocortisone 1% Cream 28.4gm TP Q8H PRN Skin Irritation Hydromorphone HCl 0.25 mg 01/09/21 10:53 02/06/21 12:01 Hydromorphone 1 Mg/1 Ml Inj IV 0.25 mg Q6H PRN Administration Pain , Severe (7-10) Sodium Chloride 100 mls @ 999 mls/hr 01/27/21 18:37 Nacl 0.9% IV [place] PRN Hypotension Amino Acids/Electrolytes/Dextrose 2,016 mls @ 84 mls/hr 02/06/21 20:00 02/07/21 20:51 Tpn Adult IV 84 mls/hr DAILY@[email or web address] [facility] Administration Protocol Amino Acids/Electrolytes/Dextrose 2,016 mls @ 84 mls/hr 02/07/21 20:00 02/07/21 20:57 Tpn Adult IV 02/08/21 19:59 Not Given DAILY@1999 [facility] Protocol Insulin Glargine 5 units 01/18/21 22:00 02/07/21 22:50 Insulin Glargine 100 Units/Ml SUB-Q 5 units QHS THOMAS Administration Insulin Human Lispro 0 unit 01/03/21 12:00 02/08/21 06:28 Insulin Lispro 100 Unit/Ml SUB-Q Not Given Q6HR [facility] Protocol Metoprolol Tartrate 5 mg 12/30/20 12:00 02/08/21 06:26 Metoprolol Tartrate 5 Mg/5 Ml Inj IV 5 mg Q4HR THOMAS Administration Morphine Sulfate 2 mg 02/02/21 12:00 02/03/21 13:31 Morphine 2 Mg/1 Ml Inj IV 2 mg Q3H PRN Administration Pain, Moderate (4-6) Ondansetron HCl 4 mg 01/25/21 11:56 02/06/21 22:55 Ondansetron 4 Mg/2 Ml Inj IV 4 mg Q4H PRN Administration Nausea And Vomiting Scopolamine 1 each 01/15/21 11:00 02/05/21 09:51 Scopolamine Transdermal Patch 72 Hr TD 1 each Q3D THOMAS Administration Sodium Chloride 10 ml 12/22/20 22:00 02/07/21 22:53 Sodium Chloride 0.9% 10 Ml Flush Syringe IV 10 ml BID THOMAS Administration Sodium Chloride 10 ml 12/22/20 19:42 01/29/21 02:08 Sodium Chloride 0.9% 10 Ml Flush Syringe IV 10 ml PRN PRN Administration LINE FLUSH Nutrition/Malnutrition Assess - Dietary Evaluation Nutrition/Malnutrition Findings: Nutrition Notes Start: 12/24/20 12:36 Freq: Status: Active Protocol: Document 02/07/21 08:40 (Rec: 02/07/21 08:46 [id number]) Nutrition Notes Initial or Follow up Reassessment Current Diagnosis CKD (stage V CKD),Sepsis, Hypertension,Heart Failure, Small Bowel Obstruction Other Pertinent Diagnosis on HD, Peritonitis, SBO s/p resection Current Diet CPN at 84 ml/hr, Clear Liquids Labs/Tests Na 135 K 3.4 Mg 1.6 Pertinent Medications Reviewed Height 5 ft 7 in Weight 84 kg [place] Body Weight (kg) 67.27 BMI 29.0 Weight Status Overweight Subjective/Other Information TPN day 44. Will increase Mg to 25 mEq. Per RN, pt drank 2 cups of broth for breakfast. Percent of energy/protein needs met: 100%/100% Burn Absent Trauma Absent GI Symptoms Diarrhea Current % PO Negligible Minimum of two criteria No Reduced [employer] Strength Measurably Reduced (severe) #2 Nutrition Diagnosis Increased nutrient needs ( specify in comment below) Diagnosis Progress(for reassessment Continues documentation) #1 Nutrition Diagnosis Inadequate oral intake Diagnosis Progress(for reassessment Continues documentation) Is patient on ventilator? No Is Patient Ambulatory and/or Out of Bed No REE-([place]-confined to bed) 1923.300 Kcal/Kg value to use for calculation 21 Approximate Energy Requirements Using 1764 kcal/Kg Calculation Used for Recommendations Kcal/kg Additional Notes Pro needs: 100-120 g/day (1.25 -1.5 g/kg AdjBW, 81kg) Fluid needs per MD. Nutrition Intervention Change Diet Order: Continue CPN Nutrition Support: Continous CPN at 84 ml/hr: Osm 1637; Mg 25 mEq, MVI, MTE Kcal 1,674 Protein (gm) 121 Carbohydrates (gm) 350 Fat (gm) 0 Fluid (mL) 2,016 Fiber (gm) 0 Goal #1 Meet at least 75% of estimated energy and protein needs via CPN Anticipated Discharge Needs: continuous TPN at 84ml/hr Follow-Up By: 02/08/21 Additional Comments Labs in AM: BMP, Mg and phos
[2021-02-08] MEDS: FAMOTIDINE 20 MG/2 ML INJ IV SCH ×3 (08:43→22:21)
[2021-02-08] MEDS: DIGOXIN 0.125 MG TAB PO SCH ×2 (08:45→10:00)
[2021-02-08] MEDS: FLUTICASONE PROPIONATE NASAL SPRAY 16 GM NS SCH (08:45)
[2021-02-08] MEDS: cloNIDine TTS 0.2 MG/24 HR PATCH TD SCH ×2 (08:46→10:00)
[2021-02-08] MEDS: SCOPOLAMINE TRANSDERMAL PATCH 72 HR TD SCH ×2 (08:46→10:00)
[2021-02-08] MEDS: HEPARIN 5,000 UNIT/1 ML VIAL SUB-Q SCH ×2 (10:00→22:21)
[2021-02-08] MEDS: ONDANSETRON 4 MG/2 ML INJ IV PRN (12:44)
[2021-02-08] MEDS: EPOETIN ALFA-EPBX 10,000 UNIT/1 ML VIAL SUB-Q PRN (12:45)
--- NOTE | 2021-02-08 13:27 | Progress Note ---
Assessment and Plan Assessment: * ESRD previously on peritoneal dialysis; now on back up HD (on peritoneal dialysis for 2 years) * Small bowel obstruction --s/p ex-lap with jejuno-ileal anastamosis --s/p ex lap with extensive lysis of adhesions and two small bowel resections with primary anastamosis for SBO with necrotic segment small bowel. --s/p ex lap, resection of perforated anastamosis, washout and abthera wound vac placement. --s/p ex lap with right hemicolectomy. * Acute respiratory failure, s/p extubation * Septic shock - resolved * Bacteremia - resolved * Anemia of ESRD * Atrial fibrilation, new onset * Post op ileus Plan: * Continue HD MWF via left IJ permcath (12/27) * 3K bath with dialysis * Decreased UF while experiencing ongoing diarrhea * Epogen 10k units w/ dialysis * Rate control per cardiology * Nutrition per primary team * Maintatin MAP >65 * Surgery notes reviewed * He will also require outpatient hemodialysis chair prior to discharge * Elevated BUN likely secondary to catabolic state. Continue increased dialysis time - 4 hours. Subjective Date of service: 02/08/21 Principal diagnosis: Ac hypoxemic resp failure; Severe Sepsis; Peritonitis; Acute SBO; ESRD; CHF Interval history: Tolerating clear liquids. Ongoing diarrhea. No complications with HD. Objective - Exam Narrative Exam: General appearance: NAD Eyes: anicteric sclerae HENT: Normocephalic, Atraumatic Neck: supple, tracheal midline, no JVD Lungs: CTAB CV: RRR Abdomen: Soft, distended, periumbilical tenderness Extremities: no edema, no cyanosis Skin: No rash. Psych: Calm Neuro: Following commands - Vital Signs Vital signs: Vital Signs - 12hr 02/08/21 02/08/21 02/08/21 04:52 06:26 06:27 Temperature 98.8 F Pulse Rate 71 71 71 Respiratory 18 Rate Blood Pressure 129/63 129/63 129/63 O2 Sat by Pulse 97 Oximetry 02/08/21 02/08/21 02/08/21 07:08 08:45 08:46 Temperature 98.7 F Pulse Rate 85 85 85 Respiratory 16 Rate Blood Pressure 139/63 139/63 139/63 O2 Sat by Pulse 96 Oximetry 02/08/21 02/08/21 02/08/21 09:10 09:15 09:30 Temperature 98.7 F Pulse Rate 77 76 87 Respiratory 18 Rate Blood Pressure 170/84 179/95 141/77 O2 Sat by Pulse Oximetry 02/08/21 02/08/21 02/08/21 09:45 10:00 10:15 Temperature Pulse Rate 85 93 H 86 Respiratory Rate Blood Pressure 165/74 151/79 156/81 O2 Sat by Pulse Oximetry 02/08/21 02/08/21 02/08/21 10:30 10:45 11:00 Temperature Pulse Rate 68 84 85 Respiratory Rate Blood Pressure 159/88 166/82 157/72 O2 Sat by Pulse Oximetry 02/08/21 02/08/21 02/08/21 11:15 11:30 11:45 Temperature Pulse Rate 68 92 H 88 Respiratory Rate Blood Pressure 155/71 143/69 144/55 O2 Sat by Pulse Oximetry 02/08/21 02/08/21 02/08/21 12:00 12:15 12:30 Temperature Pulse Rate 97 H 89 91 H Respiratory Rate Blood Pressure 149/67 141/65 142/77 O2 Sat by Pulse Oximetry - Lab 02/07/21 04:35 02/08/21 06:45 Most recent lab results ABG pH 7.345 pH Units (7.350-7.450) L 01/07/21 17:14 ABG pCO2 40.3 mm Hg 01/07/21 17:14 ABG pO2 67.4 mm Hg (80.0-90.0) L 01/07/21 17:14 ABG HCO3 21.5 mmol/L (20.0-26.0) 01/07/21 17:14 ABG O2 Saturation 94.3 % (95.0-99.0) L 01/07/21 17:14 Calcium 9.0 mg/dL (8.4-10.2) 02/08/21 06:45 Phosphorus 3.20 mg/dL (2.5-4.5) 02/08/21 06:45 Magnesium 2.00 mg/dL (1.7-2.3) 02/08/21 06:45 Medications & Allergies - Medications Allergies/Adverse Reactions: Allergies No Known Allergies Allergy (Verified 06/09/20 15:27) Home Medications: Home Medications Medication Instructions Recorded Confirmed Last Taken Type Albuterol Mdi (or & Nicu Only) 2 puff IH QID PRN #1 inhalation 04/01/17 02/05/21 10/31/20 09:00 Rx [ProAir HFA Inhaler] Calcium Acetate 667 mg PO DAILY 04/20/20 02/05/21 10/31/20 09:00 History Centrum Men's Tablet 1 tab PO DAILY 04/20/20 02/05/21 10/31/20 09:00 History Cinacalcet 30 mg PO DAILY 04/20/20 02/05/21 10/31/20 09:00 History Dialyvite with Zinc Tablet 1 tab PO DAILY 04/20/20 02/05/21 10/31/20 09:00 History Magnesium 250 mg PO BID 04/20/20 02/05/21 10/31/20 17:00 History Triamcinolone 0.1% 1 1000units TRANSDERMA DAILY 04/20/20 02/05/21 10/31/20 09:00 History Vit B12/Folic Acid/B6/Aa No.15 1,000 mg PO DAILY 04/20/20 02/05/21 10/31/20 09:00 History amLODIPine 10 mg PO DAILY 06/09/20 02/05/21 10/31/20 09:00 History AtorvaSTATin 40 mg PO HS 11/01/20 02/05/21 10/31/20 21:00 History Benadryl 25 mg PO HS 11/01/20 02/05/21 10/31/20 21:00 History Diclofenac 1 applic TRANSDERMA QID 11/01/20 02/05/21 10/31/20 19:00 History Fluticasone Propionate 1 spray INTRANASAL DAILY 11/01/20 02/05/21 10/31/20 09:00 History Vitamin D3 2,000 units PO QDAY 11/01/20 02/05/21 10/31/20 09:00 History carvediloL 12.5 mg PO DAILY 11/01/20 02/05/21 10/31/20 09:00 History hydrALAZINE 100 mg PO TID 11/01/20 02/05/21 10/31/20 19:00 History Active Medications: Generic Name Dose Route Start Last Admin Trade Name Freq PRN Reason Stop Dose Admin Acetaminophen 650 mg 12/31/20 15:30 01/21/21 05:28 Acetaminophen 650 Mg Rect Supp [place] 650 mg Q6H PRN Administration Non Cardiac Pain or Temp>100.5 Clonidine HCl 0.2 mg 01/11/21 10:00 02/08/21 08:46 Clonidine Tts 0.2 Mg/24 Hr Patch TD 0.2 mg We THOMAS Administration Dextrose 50 ml 01/14/21 17:59 01/18/21 15:10 Dextrose 50% In Water (25gm) 50 Ml Syringe IV 20 ml Q30MIN PRN Administration Hypoglycemia Protocol Digoxin 0.125 mg 02/04/21 10:00 02/08/21 08:45 Digoxin 0.125 Mg Tab PO 0.125 mg Q48HR THOMAS Administration Diphenhydramine HCl 50 mg 01/20/21 10:10 02/01/21 14:15 Diphenhydramine 50 Mg/Ml Vial IV 50 mg Q6H PRN Administration Itching Diphenoxylate HCl/Atropine 1 tab 02/06/21 18:00 02/08/21 06:33 Diphenoxylate/Atropine Tab PO 1 tab Q6H THOMAS Administration Famotidine 10 mg 12/24/20 13:00 02/08/21 08:43 Famotidine 20 Mg/2 Ml Inj IV 10 mg BID THOMAS Administration Fluticasone Propionate 50 mcg 02/07/21 10:00 Fluticasone Propionate Nasal [place] 16 Gm NS QDAY [facility] Haloperidol Lactate 5 mg 12/29/20 14:16 01/22/21 23:56 Haloperidol Lactate 5 Mg/1 Ml Inj IV 5 mg Q12H PRN Administration Agitation Heparin Sodium (Porcine) 5,000 unit 12/24/20 10:00 02/07/21 22:41 Heparin 5,000 Unit/1 Ml Vial SUB-Q 5,000 unit Q12HR [facility]OMAS Administration Hydralazine HCl 10 mg 01/10/21 14:00 02/08/21 06:27 Hydralazine 20 Mg/1 Ml Inj IV 10 mg Q4HR THOMAS Administration Hydrocortisone Acetate 1 applic 02/01/21 18:43 Hydrocortisone 1% Cream 28.4gm TP Q8H PRN Skin Irritation Hydromorphone HCl 0.25 mg 01/09/21 10:53 02/06/21 12:01 Hydromorphone 1 Mg/1 Ml Inj IV 0.25 mg Q6H PRN Administration Pain , Severe (7-10) Sodium Chloride 100 mls @ 999 mls/hr 01/27/21 18:37 Nacl 0.9% IV [place] PRN Hypotension Amino Acids/Electrolytes/Dextrose 2,016 mls @ 84 mls/hr 02/07/21 20:00 02/07/21 20:57 Tpn Adult IV 02/08/21 19:59 Not Given DAILY@1999 [facility] Protocol Amino Acids/Electrolytes/Dextrose 2,016 mls @ 84 mls/hr 02/08/21 20:00 Tpn Adult IV 02/09/21 17:59 DAILY@1999 [facility] Protocol Fat Emulsion Intravenous 250 mls @ 21 mls/hr 02/08/21 20:00 Intralipid 20% IV 02/09/21 08:00 DAILY@[email or web address] [facility] Insulin Glargine 5 units 01/18/21 22:00 02/07/21 22:50 Insulin Glargine 100 Units/Ml SUB-Q 5 units QHS THOMAS Administration Insulin Human Lispro 0 unit 01/03/21 12:00 02/08/21 06:28 Insulin Lispro 100 Unit/Ml SUB-Q Not Given Q6HR [facility] Protocol Metoprolol Tartrate 5 mg 12/30/20 12:00 02/08/21 06:26 Metoprolol Tartrate 5 Mg/5 Ml Inj IV 5 mg Q4HR THOMAS Administration Morphine Sulfate 2 mg 02/02/21 12:00 02/03/21 13:31 Morphine 2 Mg/1 Ml Inj IV 2 mg Q3H PRN Administration Pain, Moderate (4-6) Ondansetron HCl 4 mg 01/25/21 11:56 02/08/21 12:44 Ondansetron 4 Mg/2 Ml Inj IV 4 mg Q4H PRN Administration Nausea And Vomiting Scopolamine 1 each 01/15/21 11:00 02/08/21 08:46 Scopolamine Transdermal Patch 72 Hr TD 1 each Q3D [facility] Administration Sodium Chloride 10 ml 12/22/20 22:00 02/07/21 22:53 Sodium Chloride 0.9% 10 Ml Flush Syringe IV 10 ml BID THOMAS Administration Sodium Chloride 10 ml 12/22/20 19:42 01/29/21 02:08 Sodium Chloride 0.9% 10 Ml Flush Syringe IV 10 ml PRN PRN Administration LINE FLUSH
--- NOTE | 2021-02-08 14:14 | Progress Note ---
Assessment and Plan This is a 60 YO Male with ESRD on PD, GERD, Crohn's Disease, Nicotine Dependence, HTN, Systolic CHF(EF 35%) who presented to the emergency department on 12/22 with complaints of abdominal pain which began shortly after eating fast food rated 10/10 which is periumbilical, constant, associated with fever, nausea and multiple sites of vomiting and self-reported inability to undergo PD. In the emergency room patient underwent a CT scan of the abdomen/pelvis which revealed evidence of partial small bowel obstruction, symptoms were consistent with bacterial peritonitis. Patient was admitted to the hospital service with sepsis, peritonitis, and small bowel obstruction with consults to general surgery, nephrology, infectious disease and [facility]. On 01/06/21 the patient underwent an exploratory laparotomy, jejunal colonic anastomosis, and segmental small bowel resection. ABG's (01/07/21): pH 7.345 pH POC ABG pCO2 41.4 mmHg ABG pCO2 40.3 mm Hg POC ABG pO2 94.5 mmHg ABG pO2 67.4 mm Hg POC ABG HCO3 22.7 ABG O2 Saturation 94.3 % Patient sleeping at this time.Patient is on room air. O2 saturation 100%. No acute respiratory distress. Patient afebrile. Has mild leukocytosis. Blood pressure 144/75. Patient is on Clonadine and metoprol. Management as per primary care. Chest x-ray 01/03/21 reported There is decreased inspiration compared to yesterday's exam. Hazy opacity in the right perihilar region and larger area of infiltration in the left lower lung appears stable given differences in the level of inspiration. No large pleural effusion or pneumothorax. Patient presently on s/c heparin, famotidine - Patient Problems (1) Nicotine dependence Current Visit: Yes Status: Acute Qualifiers: Nicotine product type: cigarettes Substance use status: in withdrawal Qualified Code(s): F17.213 - Nicotine dependence, cigarettes, with withdrawal Plan to address problem: Counseled patient to stop smoking. (2) SOB (shortness of breath) Current Visit: No Status: Acute Plan to address problem: Improved. Patient resting on room air at this time. O2 saturation 100%. (3) Atrial fibrillation Current Visit: Yes Status: Acute Plan to address problem: Management as per cardiology. (4) CHF (congestive heart failure) Current Visit: No Status: Acute Qualifiers: Heart failure chronicity: chronic Plan to address problem: Management as per cardiology. (5) Small bowel obstruction Current Visit: Yes Status: Acute Plan to address problem: On 01/06/21 the patient underwent an exploratory laparotomy, jejunal colonic anastomosis, and segmental small bowel resection. Management as per surgery. Continue incentive spirometry (6) Small intestinal gangrene Current Visit: Yes Status: Acute Plan to address problem: On 01/06/21 the patient underwent an exploratory laparotomy, jejunal colonic anastomosis, and segmental small bowel resection. Management as per surgery. Continue incentive spirometry (7) Accelerated hypertension Current Visit: No Status: Acute Plan to address problem: Management as per primary care. (8) Acute on chronic kidney disease, stage 3 Current Visit: No Status: Acute Plan to address problem: Management as per nephrology. Subjective Date of service: 02/08/21 Principal diagnosis: Ac hypoxemic resp failure; Severe Sepsis; Peritonitis; Acute SBO; ESRD; CHF Interval history: This is a 60 YO Male with ESRD on PD, GERD, Crohn's Disease, Nicotine Dependence, HTN, Systolic CHF(EF 35%) who presented to the emergency department on 12/22 with complaints of abdominal pain which began shortly after eating fast food rated 10/10 which is periumbilical, constant, associated with fever, nausea and multiple sites of vomiting and self-reported inability to undergo PD. In the emergency room patient underwent a CT scan of the abdomen/pelvis which revealed evidence of partial small bowel obstruction, symptoms were consistent with bacterial peritonitis. Patient was admitted to the hospital service with sepsis, peritonitis, and small bowel obstruction with consults to general surgery, nephrology, infectious disease and [facility]. On 01/06/21 the patient underwent an exploratory laparotomy, jejunal colonic anas tomosis, and segmental small bowel resection. ABG's (01/07/21): pH 7.345 pH POC ABG pCO2 41.4 mmHg ABG pCO2 40.3 mm Hg POC ABG pO2 94.5 mmHg ABG pO2 67.4 mm Hg POC ABG HCO3 22.7 ABG O2 Saturation 94.3 % Patient sleeping at this time.Patient is on room air. O2 saturation 100%. No acute respiratory distress. Patient afebrile. Has mild leukocytosis. Blood pressure 144/75. Patient is on Clonadine and metoprol. Management as per primary care. Chest x-ray 01/03/21 reported There is decreased inspiration compared to yesterday's exam. Hazy opacity in the right perihilar region and larger area of infiltration in the left lower lung appears stable given differences in the level of inspiration. No large pleural effusion or pneumothorax. Patient presently on s/c heparin, famotidine Objective Vital Signs - 12hr 02/08/21 02/08/21 02/08/21 04:52 06:26 06:27 Temperature 98.8 F Pulse Rate 71 71 71 Respiratory 18 Rate Blood Pressure 129/63 129/63 129/63 O2 Sat by Pulse 97 Oximetry 02/08/21 02/08/21 02/08/21 07:08 08:45 08:46 Temperature 98.7 F Pulse Rate 85 85 85 Respiratory 16 Rate Blood Pressure 139/63 139/63 139/63 O2 Sat by Pulse 96 Oximetry 02/08/21 02/08/21 02/08/21 09:10 09:15 09:30 Temperature 98.7 F Pulse Rate 77 76 87 Respiratory 18 Rate Blood Pressure 170/84 179/95 141/77 O2 Sat by Pulse Oximetry 02/08/21 02/08/21 02/08/21 09:45 10:00 10:15 Temperature Pulse Rate 85 93 H 86 Respiratory Rate Blood Pressure 165/74 151/79 156/81 O2 Sat by Pulse Oximetry 02/08/21 02/08/21 02/08/21 10:30 10:45 11:00 Temperature Pulse Rate 68 84 85 Respiratory Rate Blood Pressure 159/88 166/82 157/72 O2 Sat by Pulse Oximetry 02/08/21 02/08/21 02/08/21 11:15 11:30 11:45 Temperature Pulse Rate 68 92 H 88 Respiratory Rate Blood Pressure 155/71 143/69 144/55 O2 Sat by Pulse Oximetry 02/08/21 02/08/21 02/08/21 12:00 12:15 12:30 Temperature Pulse Rate 97 H 89 91 H Respiratory Rate Blood Pressure 149/67 141/65 142/77 O2 Sat by Pulse Oximetry 02/08/21 02/08/21 02/08/21 12:45 13:00 13:15 Temperature Pulse Rate 92 H 92 H 58 L Respiratory Rate Blood Pressure 148/70 125/69 134/70 O2 Sat by Pulse Oximetry 02/08/21 13:30 Temperature 98.6 F Pulse Rate 65 Respiratory 18 Rate Blood Pressure 133/65 O2 Sat by Pulse Oximetry Constitutional: no acute distress, asleep Eyes: non-icteric ENT: oropharynx moist Neck: supple, no lymphadenopathy, no JVD Effort: normal Ascultation: Bilateral: diminished breath sounds, rales, rhonchi Percussion: Bilateral: not dull Cardiovascular: regular rate and rhythm, other (S1,S2) Gastrointestinal: hypoactive bowel sounds, soft, non-tender, non-distended (protuberant), other (Midline abdominal incision; + PEG) Integumentary: other (Midline abdominal incision ) Extremities: no cyanosis, no edema, pulses normal, no ischemia or petechiae Neurologic: non-focal exam (grossly), pupils equal and round, CN II-XII normal Psychiatric: other (Patient sleeping.) CBC and BMP: 02/07/21 04:35 02/08/21 06:45 ABG, PT/INR, D-dimer: ABG ABG pH 7.345 pH Units (7.350-7.450) L 01/07/21 17:14 POC ABG pCO2 41.4 mmHg (32.0-48.0) 01/07/21 03:07 ABG pCO2 40.3 mm Hg 01/07/21 17:14 POC ABG pO2 94.5 mmHg (83-108) 01/07/21 03:07 ABG pO2 67.4 mm Hg (80.0-90.0) L 01/07/21 17:14 POC ABG HCO3 22.7 01/07/21 03:07 ABG O2 Saturation 94.3 % (95.0-99.0) L 01/07/21 17:14 PT/INR, D-dimer PT 16.9 Sec. (12.2-14.9) H 01/01/21 12:45 INR 1.39 (0.87-1.13) H 01/01/21 12:45 Abnormal lab findings: Abnormal Labs 12/22/20 12/22/20 12/22/20 14:38 14:38 14:38 WBC RBC Hgb 11.2 L Hct 35.0 L MCV MCHC RDW 16.7 H Plt Count Lymph % (Auto) [place] % (Auto) Eos % (Auto) Lymph # (Auto) [place] # (Auto) Eos # (Auto) Seg Neutrophils % Seg Neuts % (Manual) 94.0 H Lymphocytes % (Manual) 5.0 L Monocytes % (Manual) Seg Neutrophils # Seg Neutrophils # Man Lymphocytes # (Manual) 0.3 L Monocytes # (Manual) PT INR ABG pH POC ABG pCO2 POC ABG pO2 ABG pO2 ABG HCO3 ABG O2 Saturation ABG Base Excess ABG Hemoglobin ABG Oxyhemoglobin ABG Sodium ABG Potassium ABG Chloride ABG Glucose Oxyhemoglobin Sodium Potassium Chloride Carbon Dioxide BUN 58 H Creatinine 13.2 H Glucose 113 H POC Glucose Lactic Acid 3.60 H* Calcium Phosphorus Magnesium Total Bilirubin 1.30 H AST ALT Alkaline Phosphatase 155 H Total Protein Albumin Triglycerides Arterial Blood Glucose Arterial Blood Ionized Calcium Digoxin Crossmatch 12/22/20 12/22/20 12/23/20 16:26 17:47 05:22 WBC RBC Hgb Hct MCV MCHC RDW Plt Count Lymph % (Auto) [place] % (Auto) Eos % (Auto) Lymph # (Auto) [place] # (Auto) Eos # (Auto) Seg Neutrophils % Seg Neuts % (Manual) Lymphocytes % (Manual) Monocytes % (Manual) Seg Neutrophils # Seg Neutrophils # Man Lymphocytes # (Manual) Monocytes # (Manual) PT INR ABG pH POC ABG pCO2 POC ABG pO2 ABG pO2 ABG HCO3 ABG O2 Saturation ABG Base Excess ABG Hemoglobin ABG Oxyhemoglobin ABG Sodium ABG Potassium ABG Chloride ABG Glucose Oxyhemoglobin Sodium Potassium Chloride Carbon Dioxide BUN Creatinine Glucose POC Glucose Lactic Acid 2.80 H* 3.10 H* 2.30 H* Calcium Phosphorus Magnesium Total Bilirubin AST ALT Alkaline Phosphatase Total Protein Albumin Triglycerides Arterial Blood Glucose Arterial Blood Ionized Calcium Digoxin Crossmatch 12/23/20 12/23/20 12/23/20 05:22 05:22 06:35 WBC 12.1 H RBC Hgb 11.0 L Hct 33.7 L MCV MCHC RDW 16.9 H Plt Count Lymph % (Auto) [place] % (Auto) Eos % (Auto) Lymph # (Auto) [place] # (Auto) Eos # (Auto) Seg Neutrophils % Seg Neuts % (Manual) 93.0 H Lymphocytes % (Manual) 1.0 L Monocytes % (Manual) Seg Neutrophils # Seg Neutrophils # Man 11.3 H Lymphocytes # (Manual) 0.1 L Monocytes # (Manual) PT INR ABG pH POC ABG pCO2 POC ABG pO2 ABG pO2 ABG HCO3 ABG O2 Saturation ABG Base Excess ABG Hemoglobin ABG Oxyhemoglobin ABG Sodium ABG Potassium ABG Chloride ABG Glucose Oxyhemoglobin Sodium Potassium 5.7 H D Chloride Carbon Dioxide BUN 73 H Creatinine 14.2 H Glucose POC Glucose Lactic Acid 2.30 H* Calcium 7.9 L Phosphorus Magnesium Total Bilirubin 1.40 H AST 119 H ALT 130 H Alkaline Phosphatase 183 H Total Protein 6.1 L Albumin 3.6 L Triglycerides Arterial Blood Glucose Arterial Blood Ionized Calcium Digoxin Crossmatch 12/23/20 12/23/20 12/23/20 11:40 13:53 16:47 WBC RBC Hgb 10.0 L Hct 30.4 L MCV MCHC RDW Plt Count Lymph % (Auto) [place] % (Auto) Eos % (Auto) Lymph # (Auto) [place] # (Auto) Eos # (Auto) Seg Neutrophils % Seg Neuts % (Manual) Lymphocytes % (Manual) Monocytes % (Manual) Seg Neutrophils # Seg Neutrophils # Man Lymphocytes # (Manual) Monocytes # (Manual) PT INR ABG pH POC ABG pCO2 POC ABG pO2 137.5 H ABG pO2 ABG HCO3 ABG O2 Saturation ABG Base Excess ABG Hemoglobin 9.7 L ABG Oxyhemoglobin ABG Sodium 134.1 L ABG Potassium 6.6 H ABG Chloride ABG Glucose 103 H Oxyhemoglobin Sodium Potassium Chloride Carbon Dioxide BUN Creatinine Glucose POC Glucose Lactic Acid Calcium Phosphorus Magnesium Total Bilirubin AST ALT Alkaline Phosphatase Total Protein Albumin Triglycerides Arterial Blood Glucose 103 H Arterial Blood Ionized Calcium 3.8 L Digoxin Crossmatch See Detail 12/23/20 12/23/20 12/24/20 20:35 20:40 01:20 WBC RBC Hgb Hct MCV MCHC RDW Plt Count Lymph % (Auto) [place] % (Auto) Eos % (Auto) Lymph # (Auto) [place] # (Auto) Eos # (Auto) Seg Neutrophils % Seg Neuts % (Manual) Lymphocytes % (Manual) Monocytes % (Manual) Seg Neutrophils # Seg Neutrophils # Man Lymphocytes # (Manual) Monocytes # (Manual) PT INR ABG pH 7.252 L POC ABG pCO2 POC ABG pO2 ABG pO2 50.1 L ABG HCO3 ABG O2 Saturation 81.1 L ABG Base Excess -5.9 L ABG Hemoglobin 12.1 L ABG Oxyhemoglobin ABG Sodium ABG Potassium ABG Chloride ABG Glucose Oxyhemoglobin 78.6 L Sodium 134 L Potassium 6.9 H* D 6.3 H* Chloride Carbon Dioxide 18 L 20 L BUN 87 H 91 H Creatinine 15.3 H 15.3 H Glucose 103 H POC Glucose Lactic Acid Calcium 6.9 L 7.5 L Phosphorus Magnesium Total Bilirubin AST ALT Alkaline Phosphatase Total Protein Albumin Triglycerides Arterial Blood Glucose Arterial Blood Ionized Calcium Digoxin Crossmatch 12/24/20 12/24/20 12/24/20 04:00 10:29 10:29 WBC RBC 3.49 L Hgb 10.5 L Hct 31.2 L MCV MCHC RDW 17.5 H Plt Count 124 L Lymph % (Auto) 3.7 L [place] % (Auto) 9.8 H Eos % (Auto) Lymph # (Auto) 0.2 L [place] # (Auto) Eos # (Auto) Seg Neutrophils % 85.9 H Seg Neuts % (Manual) Lymphocytes % (Manual) Monocytes % (Manual) Seg Neutrophils # Seg Neutrophils # Man Lymphocytes # (Manual) Monocytes # (Manual) PT INR ABG pH POC ABG pCO2 28.1 L POC ABG pO2 ABG pO2 ABG HCO3 ABG O2 Saturation ABG Base Excess ABG Hemoglobin ABG Oxyhemoglobin ABG Sodium 133.9 L ABG Potassium 5.3 H ABG Chloride 108.0 H ABG Glucose Oxyhemoglobin Sodium Potassium 5.6 H Chloride Carbon Dioxide 19 L BUN 99 H Creatinine 16.9 H Glucose 52 L POC Glucose Lactic Acid Calcium 7.6 L Phosphorus Magnesium Total Bilirubin 3.50 H AST 67 H ALT 71 H Alkaline Phosphatase Total Protein 3.5 L D Albumin 2.1 L Triglycerides Arterial Blood Glucose Arterial Blood Ionized Calcium 4.0 L Digoxin Crossmatch 12/25/20 12/25/20 12/25/20 03:33 04:00 04:00 WBC 3.8 L RBC 2.90 L Hgb 8.6 L Hct 25.7 L MCV MCHC RDW 16.7 H Plt Count 113 L Lymph % (Auto) [place] % (Auto) Eos % (Auto) Lymph # (Auto) [place] # (Auto) Eos # (Auto) Seg Neutrophils % Seg Neuts % (Manual) Lymphocytes % (Manual) Monocytes % (Manual) Seg Neutrophils # Seg Neutrophils # Man Lymphocytes # (Manual) Monocytes # (Manual) PT INR ABG pH 7.544 H POC ABG pCO2 28.2 L POC ABG pO2 62.8 L ABG pO2 ABG HCO3 ABG O2 Saturation ABG Base Excess ABG Hemoglobin 9.3 L ABG Oxyhemoglobin 93.0 L ABG Sodium 130.3 L ABG Potassium ABG Chloride ABG Glucose 97 H Oxyhemoglobin Sodium Potassium Chloride Carbon Dioxide BUN 62 H Creatinine 11.4 H Glucose POC Glucose Lactic Acid Calcium 7.7 L Phosphorus 5.00 H Magnesium Total Bilirubin AST ALT Alkaline Phosphatase Total Protein Albumin Triglycerides Arterial Blood Glucose 97 H Arterial Blood Ionized Calcium 3.9 L Digoxin Crossmatch 12/26/20 12/26/20 12/27/20 04:46 Unknown 03:40 WBC 4.1 L RBC 2.61 L Hgb 7.8 L Hct 23.4 L MCV MCHC RDW 17.1 H Plt Count 119 L Lymph % (Auto) 5.3 L [place] % (Auto) 10.6 H Eos % (Auto) Lymph # (Auto) 0.2 L [place] # (Auto) Eos # (Auto) Seg Neutrophils % 78.8 H Seg Neuts % (Manual) Lymphocytes % (Manual) Monocytes % (Manual) Seg Neutrophils # Seg Neutrophils # Man Lymphocytes # (Manual) Monocytes # (Manual) PT INR ABG pH 7.333 L 7.332 L POC ABG pCO2 POC ABG pO2 ABG pO2 ABG HCO3 26.9 H ABG O2 Saturation ABG Base Excess -2.4 L ABG Hemoglobin 6.8 L 7.2 L ABG Oxyhemoglobin ABG Sodium ABG Potassium ABG Chloride ABG Glucose Oxyhemoglobin 93.0 L 93.1 L Sodium Potassium Chloride Carbon Dioxide BUN Creatinine Glucose POC Glucose Lactic Acid Calcium Phosphorus Magnesium Total Bilirubin AST ALT Alkaline Phosphatase Total Protein Albumin Triglycerides Arterial Blood Glucose Arterial Blood Ionized Calcium Digoxin Crossmatch 12/27/20 12/27/20 12/27/20 06:40 06:40 11:22 WBC 4.4 L RBC 2.49 L Hgb 7.4 L Hct 22.4 L MCV MCHC RDW 17.1 H Plt Count 111 L Lymph % (Auto) 6.7 L [place] % (Auto) 12.6 H Eos % (Auto) Lymph # (Auto) 0.3 L [place] # (Auto) Eos # (Auto) Seg Neutrophils % 77.6 H Seg Neuts % (Manual) Lymphocytes % (Manual) Monocytes % (Manual) Seg Neutrophils # Seg Neutrophils # Man Lymphocytes # (Manual) Monocytes # (Manual) PT INR ABG pH POC ABG pCO2 POC ABG pO2 ABG pO2 ABG HCO3 ABG O2 Saturation ABG Base Excess ABG Hemoglobin ABG Oxyhemoglobin ABG Sodium ABG Potassium ABG Chloride ABG Glucose Oxyhemoglobin Sodium Potassium Chloride Carbon Dioxide BUN 64 H Creatinine 9.8 H Glucose 147 H POC Glucose 134 H Lactic Acid Calcium 8.3 L Phosphorus 5.00 H Magnesium Total Bilirubin 3.70 H AST 72 H ALT Alkaline Phosphatase 142 H Total Protein 5.1 L D Albumin 2.9 L Triglycerides Arterial Blood Glucose Arterial Blood Ionized Calcium Digoxin Crossmatch 12/27/20 12/27/20 12/28/20 17:29 23:31 03:09 WBC RBC Hgb Hct MCV MCHC RDW Plt Count Lymph % (Auto) [place] % (Auto) Eos % (Auto) Lymph # (Auto) [place] # (Auto) Eos # (Auto) Seg Neutrophils % Seg Neuts % (Manual) Lymphocytes % (Manual) Monocytes % (Manual) Seg Neutrophils # Seg Neutrophils # Man Lymphocytes # (Manual) Monocytes # (Manual) PT INR ABG pH 7.474 H POC ABG pCO2 POC ABG pO2 ABG pO2 ABG HCO3 ABG O2 Saturation ABG Base Excess ABG Hemoglobin 7.8 L ABG Oxyhemoglobin ABG Sodium ABG Potassium ABG Chloride ABG Glucose Oxyhemoglobin Sodium Potassium Chloride Carbon Dioxide BUN Creatinine Glucose POC Glucose 121 H 131 H Lactic Acid Calcium Phosphorus Magnesium Total Bilirubin AST ALT Alkaline Phosphatase Total Protein Albumin Triglycerides Arterial Blood Glucose Arterial Blood Ionized Calcium Digoxin Crossmatch 12/28/20 12/28/20 12/28/20 05:37 05:40 05:40 WBC 4.3 L RBC 2.40 L Hgb 7.2 L Hct 21.5 L MCV MCHC RDW 17.4 H Plt Count 112 L Lymph % (Auto) 6.5 L [place] % (Auto) 16.7 H Eos % (Auto) Lymph # (Auto) 0.3 L [place] # (Auto) Eos # (Auto) Seg Neutrophils % 71.1 H Seg Neuts % (Manual) Lymphocytes % (Manual) Monocytes % (Manual) Seg Neutrophils # Seg Neutrophils # Man Lymphocytes # (Manual) Monocytes # (Manual) PT INR ABG pH POC ABG pCO2 POC ABG pO2 ABG pO2 ABG HCO3 ABG O2 Saturation ABG Base Excess ABG Hemoglobin ABG Oxyhemoglobin ABG Sodium ABG Potassium ABG Chloride ABG Glucose Oxyhemoglobin Sodium Potassium Chloride Carbon Dioxide BUN 85 H Creatinine 11.5 H Glucose 132 H POC Glucose 121 H Lactic Acid Calcium 8.2 L Phosphorus Magnesium 2.40 H Total Bilirubin 3.80 H AST 70 H ALT Alkaline Phosphatase 176 H Total Protein 5.0 L Albumin 2.9 L Triglycerides Arterial Blood Glucose Arterial Blood Ionized Calcium Digoxin Crossmatch 12/28/20 12/28/20 12/28/20 11:34 15:00 17:35 WBC RBC Hgb Hct MCV MCHC RDW Plt Count Lymph % (Auto) [place] % (Auto) Eos % (Auto) Lymph # (Auto) [place] # (Auto) Eos # (Auto) Seg Neutrophils % Seg Neuts % (Manual) Lymphocytes % (Manual) Monocytes % (Manual) Seg Neutrophils # Seg Neutrophils # Man Lymphocytes # (Manual) Monocytes # (Manual) PT INR ABG pH 7.461 H POC ABG pCO2 POC ABG pO2 72.2 L ABG pO2 ABG HCO3 ABG O2 Saturation ABG Base Excess ABG Hemoglobin 8.2 L ABG Oxyhemoglobin 93.6 L ABG Sodium 134.1 L ABG Potassium 3.2 L ABG Chloride ABG Glucose 135 H Oxyhemoglobin Sodium Potassium Chloride Carbon Dioxide BUN Creatinine Glucose POC Glucose 137 H 144 H Lactic Acid Calcium Phosphorus Magnesium Total Bilirubin AST ALT Alkaline Phosphatase Total Protein Albumin Triglycerides Arterial Blood Glucose 135 H Arterial Blood Ionized Calcium 4.4 L Digoxin Crossmatch 12/28/20 12/28/20 12/29/20 19:44 Unknown 00:21 WBC RBC Hgb Hct MCV MCHC RDW Plt Count Lymph % (Auto) [place] % (Auto) Eos % (Auto) Lymph # (Auto) [place] # (Auto) Eos # (Auto) Seg Neutrophils % Seg Neuts % (Manual) Lymphocytes % (Manual) Monocytes % (Manual) Seg Neutrophils # Seg Neutrophils # Man Lymphocytes # (Manual) Monocytes # (Manual) PT INR ABG pH 7.474 H POC ABG pCO2 POC ABG pO2 ABG pO2 ABG HCO3 ABG O2 Saturation ABG Base Excess ABG Hemoglobin 7.8 L ABG Oxyhemoglobin ABG Sodium 133.2 L ABG Potassium ABG Chloride ABG Glucose 139 H Oxyhemoglobin Sodium 135 L Potassium Chloride 96.6 L Carbon Dioxide BUN 47 H Creatinine 7.4 H Glucose 130 H POC Glucose 142 H Lactic Acid Calcium 8.3 L Phosphorus Magnesium Total Bilirubin AST ALT Alkaline Phosphatase Total Protein Albumin Triglycerides Arterial Blood Glucose 139 H Arterial Blood Ionized Calcium 4.3 L Digoxin Crossmatch 12/29/20 12/29/20 12/29/20 05:16 05:16 05:26 WBC RBC 2.53 L Hgb 7.7 L Hct 22.8 L MCV MCHC RDW 17.0 H Plt Count 130 L Lymph % (Auto) [place] % (Auto) Eos % (Auto) Lymph # (Auto) [place] # (Auto) Eos # (Auto) Seg Neutrophils % Seg Neuts % (Manual) 79.0 H Lymphocytes % (Manual) 9.0 L Monocytes % (Manual) Seg Neutrophils # Seg Neutrophils # Man Lymphocytes # (Manual) 0.6 L Monocytes # (Manual) PT INR ABG pH POC ABG pCO2 POC ABG pO2 ABG pO2 ABG HCO3 ABG O2 Saturation ABG Base Excess ABG Hemoglobin ABG Oxyhemoglobin ABG Sodium ABG Potassium ABG Chloride ABG Glucose Oxyhemoglobin Sodium Potassium 3.4 L Chloride 96.6 L Carbon Dioxide BUN 59 H Creatinine 8.3 H Glucose 127 H POC Glucose 141 H Lactic Acid Calcium 8.2 L Phosphorus Magnesium Total Bilirubin 3.00 H AST 88 H ALT Alkaline Phosphatase 188 H Total Protein 5.1 L Albumin 2.8 L Triglycerides Arterial Blood Glucose Arterial Blood Ionized Calcium Digoxin Crossmatch 12/29/20 12/29/20 12/29/20 11:33 17:29 23:22 WBC RBC Hgb Hct MCV MCHC RDW Plt Count Lymph % (Auto) [place] % (Auto) Eos % (Auto) Lymph # (Auto) [place] # (Auto) Eos # (Auto) Seg Neutrophils % Seg Neuts % (Manual) Lymphocytes % (Manual) Monocytes % (Manual) Seg Neutrophils # Seg Neutrophils # Man Lymphocytes # (Manual) Monocytes # (Manual) PT INR ABG pH POC ABG pCO2 POC ABG pO2 ABG pO2 ABG HCO3 ABG O2 Saturation ABG Base Excess ABG Hemoglobin ABG Oxyhemoglobin ABG Sodium ABG Potassium ABG Chloride ABG Glucose Oxyhemoglobin Sodium Potassium Chloride Carbon Dioxide BUN Creatinine Glucose POC Glucose 144 H 130 H 117 H Lactic Acid Calcium Phosphorus Magnesium Total Bilirubin AST ALT Alkaline Phosphatase Total Protein Albumin Triglycerides Arterial Blood Glucose Arterial Blood Ionized Calcium Digoxin Crossmatch 12/30/20 12/30/20 12/30/20 05:23 08:15 09:00 WBC RBC Hgb Hct MCV MCHC RDW Plt Count Lymph % (Auto) [place] % (Auto) Eos % (Auto) Lymph # (Auto) [place] # (Auto) Eos # (Auto) Seg Neutrophils % Seg Neuts % (Manual) Lymphocytes % (Manual) Monocytes % (Manual) Seg Neutrophils # Seg Neutrophils # Man Lymphocytes # (Manual) Monocytes # (Manual) PT INR ABG pH POC ABG pCO2 POC ABG pO2 ABG pO2 ABG HCO3 ABG O2 Saturation ABG Base Excess ABG Hemoglobin ABG Oxyhemoglobin ABG Sodium ABG Potassium ABG Chloride ABG Glucose Oxyhemoglobin Sodium 135 L Potassium Chloride 95.9 L Carbon Dioxide BUN 85 H Creatinine 10.6 H Glucose 128 H POC Glucose 135 H 127 H Lactic Acid Calcium 8.3 L Phosphorus Magnesium Total Bilirubin 2.40 H AST 85 H ALT Alkaline Phosphatase 216 H Total Protein 5.3 L Albumin 2.6 L Triglycerides 155 H Arterial Blood Glucose Arterial Blood Ionized Calcium Digoxin Crossmatch 12/30/20 12/30/20 12/30/20 09:00 11:53 15:49 WBC RBC 2.61 L Hgb 7.8 L Hct 23.7 L MCV MCHC RDW 17.3 H Plt Count Lymph % (Auto) [place] % (Auto) Eos % (Auto) Lymph # (Auto) [place] # (Auto) Eos # (Auto) Seg Neutrophils % Seg Neuts % (Manual) Lymphocytes % (Manual) Monocytes % (Manual) Seg Neutrophils # Seg Neutrophils # Man Lymphocytes # (Manual) Monocytes # (Manual) PT INR ABG pH POC ABG pCO2 POC ABG pO2 ABG pO2 ABG HCO3 ABG O2 Saturation ABG Base Excess ABG Hemoglobin ABG Oxyhemoglobin ABG Sodium ABG Potassium ABG Chloride ABG Glucose Oxyhemoglobin Sodium Potassium Chloride Carbon Dioxide BUN Creatinine Glucose POC Glucose 155 H 146 H Lactic Acid Calcium Phosphorus Magnesium Total Bilirubin AST ALT Alkaline Phosphatase Total Protein Albumin Triglycerides Arterial Blood Glucose Arterial Blood Ionized Calcium Digoxin Crossmatch 12/30/20 12/30/20 12/31/20 17:53 23:45 03:56 WBC RBC Hgb Hct MCV MCHC RDW Plt Count Lymph % (Auto) [place] % (Auto) Eos % (Auto) Lymph # (Auto) [place] # (Auto) Eos # (Auto) Seg Neutrophils % Seg Neuts % (Manual) Lymphocytes % (Manual) Monocytes % (Manual) Seg Neutrophils # Seg Neutrophils # Man Lymphocytes # (Manual) Monocytes # (Manual) PT INR ABG pH POC ABG pCO2 POC ABG pO2 49.4 L ABG pO2 ABG HCO3 ABG O2 Saturation ABG Base Excess ABG Hemoglobin 10.3 L ABG Oxyhemoglobin 84.2 L ABG Sodium 133.1 L ABG Potassium ABG Chloride ABG Glucose 173 H Oxyhemoglobin Sodium Potassium Chloride Carbon Dioxide BUN Creatinine Glucose POC Glucose 139 H 173 H Lactic Acid Calcium Phosphorus Magnesium Total Bilirubin AST ALT Alkaline Phosphatase Total Protein Albumin Triglycerides Arterial Blood Glucose 173 H Arterial Blood Ionized Calcium Digoxin Crossmatch 12/31/20 12/31/20 12/31/20 05:07 06:51 06:51 WBC 20.3 H RBC 3.32 L Hgb 9.8 L Hct 30.3 L D MCV MCHC RDW 17.3 H Plt Count Lymph % (Auto) [place] % (Auto) Eos % (Auto) Lymph # (Auto) [place] # (Auto) Eos # (Auto) Seg Neutrophils % Seg Neuts % (Manual) 87.0 H Lymphocytes % (Manual) 10.0 L Monocytes % (Manual) Seg Neutrophils # Seg Neutrophils # Man 17.7 H Lymphocytes # (Manual) Monocytes # (Manual) PT INR ABG pH POC ABG pCO2 POC ABG pO2 ABG pO2 ABG HCO3 ABG O2 Saturation ABG Base Excess ABG Hemoglobin ABG Oxyhemoglobin ABG Sodium ABG Potassium ABG Chloride ABG Glucose Oxyhemoglobin Sodium Potassium 5.2 H D Chloride Carbon Dioxide BUN 62 H Creatinine 8.4 H Glucose 116 H POC Glucose 120 H Lactic Acid Calcium Phosphorus Magnesium 1.60 L Total Bilirubin AST ALT Alkaline Phosphatase Total Protein Albumin Triglycerides Arterial Blood Glucose Arterial Blood Ionized Calcium Digoxin Crossmatch 12/31/20 12/31/20 12/31/20 09:38 12:19 12:22 WBC RBC Hgb Hct MCV MCHC RDW Plt Count Lymph % (Auto) [place] % (Auto) Eos % (Auto) Lymph # (Auto) [place] # (Auto) Eos # (Auto) Seg Neutrophils % Seg Neuts % (Manual) Lymphocytes % (Manual) Monocytes % (Manual) Seg Neutrophils # Seg Neutrophils # Man Lymphocytes # (Manual) Monocytes # (Manual) PT INR ABG pH POC ABG pCO2 POC ABG pO2 ABG pO2 354.0 H ABG HCO3 ABG O2 Saturation 99.6 H ABG Base Excess ABG Hemoglobin 9.1 L ABG Oxyhemoglobin ABG Sodium ABG Potassium ABG Chloride ABG Glucose Oxyhemoglobin Sodium Potassium 5.2 H Chloride Carbon Dioxide BUN Creatinine Glucose POC Glucose 132 H Lactic Acid Calcium Phosphorus Magnesium Total Bilirubin AST ALT Alkaline Phosphatase Total Protein Albumin Triglycerides Arterial Blood Glucose Arterial Blood Ionized Calcium Digoxin Crossmatch 12/31/20 01/01/21 01/01/21 23:23 03:03 05:04 WBC RBC Hgb Hct MCV MCHC RDW Plt Count Lymph % (Auto) [place] % (Auto) Eos % (Auto) Lymph # (Auto) [place] # (Auto) Eos # (Auto) Seg Neutrophils % Seg Neuts % (Manual) Lymphocytes % (Manual) Monocytes % (Manual) Seg Neutrophils # Seg Neutrophils # Man Lymphocytes # (Manual) Monocytes # (Manual) PT INR ABG pH POC ABG pCO2 POC ABG pO2 79.6 L ABG pO2 ABG HCO3 ABG O2 Saturation ABG Base Excess ABG Hemoglobin 9.2 L ABG Oxyhemoglobin ABG Sodium 131.6 L ABG Potassium 5.8 H ABG Chloride ABG Glucose 177 H Oxyhemoglobin Sodium Potassium Chloride Carbon Dioxide BUN Creatinine Glucose POC Glucose 174 H 167 H Lactic Acid Calcium Phosphorus Magnesium Total Bilirubin AST ALT Alkaline Phosphatase Total Protein Albumin Triglycerides Arterial Blood Glucose 177 H Arterial Blood Ionized Calcium Digoxin Crossmatch 01/01/21 01/01/21 01/01/21 07:31 07:31 11:31 WBC 26.1 H RBC 2.95 L Hgb 8.6 L Hct 27.1 L MCV MCHC RDW 18.2 H Plt Count Lymph % (Auto) [place] % (Auto) Eos % (Auto) Lymph # (Auto) [place] # (Auto) Eos # (Auto) Seg Neutrophils % Seg Neuts % (Manual) 96.0 H Lymphocytes % (Manual) 4.0 L Monocytes % (Manual) Seg Neutrophils # Seg Neutrophils # Man 25.1 H Lymphocytes # (Manual) 1.0 L Monocytes # (Manual) PT INR ABG pH POC ABG pCO2 POC ABG pO2 ABG pO2 ABG HCO3 ABG O2 Saturation ABG Base Excess ABG Hemoglobin ABG Oxyhemoglobin ABG Sodium ABG Potassium ABG Chloride ABG Glucose Oxyhemoglobin Sodium Potassium 6.0 H Chloride Carbon Dioxide 21 L BUN 89 H Creatinine 10.5 H Glucose 179 H POC Glucose Lactic Acid Calcium Phosphorus Magnesium Total Bilirubin AST ALT Alkaline Phosphatase Total Protein Albumin Triglycerides Arterial Blood Glucose Arterial Blood Ionized Calcium Digoxin Crossmatch See Detail 01/01/21 01/01/21 01/01/21 11:51 12:45 16:52 WBC RBC Hgb Hct MCV MCHC RDW Plt Count Lymph % (Auto) [place] % (Auto) Eos % (Auto) Lymph # (Auto) [place] # (Auto) Eos # (Auto) Seg Neutrophils % Seg Neuts % (Manual) Lymphocytes % (Manual) Monocytes % (Manual) Seg Neutrophils # Seg Neutrophils # Man Lymphocytes # (Manual) Monocytes # (Manual) PT 16.9 H INR 1.39 H ABG pH POC ABG pCO2 POC ABG pO2 ABG pO2 ABG HCO3 ABG O2 Saturation ABG Base Excess ABG Hemoglobin ABG Oxyhemoglobin ABG Sodium ABG Potassium ABG Chloride ABG Glucose Oxyhemoglobin Sodium Potassium Chloride Carbon Dioxide BUN Creatinine Glucose POC Glucose 157 H 177 H Lactic Acid Calcium Phosphorus Magnesium Total Bilirubin AST ALT Alkaline Phosphatase Total Protein Albumin Triglycerides Arterial Blood Glucose Arterial Blood Ionized Calcium Digoxin Crossmatch 01/01/21 01/01/21 01/01/21 17:58 17:58 20:12 WBC 26.9 H RBC 3.14 L Hgb 9.3 L Hct 29.6 L MCV MCHC RDW 17.5 H Plt Count Lymph % (Auto) [place] % (Auto) Eos % (Auto) Lymph # (Auto) [place] # (Auto) Eos # (Auto) Seg Neutrophils % Seg Neuts % (Manual) 84.0 H Lymphocytes % (Manual) 4.0 L Monocytes % (Manual) 12.0 H Seg Neutrophils # Seg Neutrophils # Man 22.6 H Lymphocytes # (Manual) 1.1 L Monocytes # (Manual) 3.2 H PT INR ABG pH POC ABG pCO2 POC ABG pO2 ABG pO2 ABG HCO3 ABG O2 Saturation ABG Base Excess ABG Hemoglobin ABG Oxyhemoglobin ABG Sodium ABG Potassium ABG Chloride ABG Glucose Oxyhemoglobin Sodium 136 L Potassium 6.2 H* Chloride Carbon Dioxide 21 L BUN 92 H Creatinine 10.8 H Glucose 171 H POC Glucose 288 H Lactic Acid Calcium Phosphorus Magnesium Total Bilirubin 2.10 H AST 223 H ALT 100 H Alkaline Phosphatase 206 H Total Protein 4.8 L Albumin 1.9 L Triglycerides Arterial Blood Glucose Arterial Blood Ionized Calcium Digoxin Crossmatch 01/02/21 01/02/21 01/02/21 00:12 00:45 03:05 WBC RBC Hgb Hct MCV MCHC RDW Plt Count Lymph % (Auto) [place] % (Auto) Eos % (Auto) Lymph # (Auto) [place] # (Auto) Eos # (Auto) Seg Neutrophils % Seg Neuts % (Manual) Lymphocytes % (Manual) Monocytes % (Manual) Seg Neutrophils # Seg Neutrophils # Man Lymphocytes # (Manual) Monocytes # (Manual) PT INR ABG pH POC ABG pCO2 POC ABG pO2 81.8 L ABG pO2 ABG HCO3 ABG O2 Saturation ABG Base Excess ABG Hemoglobin 8.0 L ABG Oxyhemoglobin ABG Sodium 129.8 L ABG Potassium 5.4 H ABG Chloride ABG Glucose 257 H Oxyhemoglobin Sodium 136 L Potassium 5.8 H Chloride 96.6 L Carbon Dioxide BUN 95 H Creatinine 11.2 H Glucose 238 H POC Glucose 223 H Lactic Acid Calcium Phosphorus Magnesium Total Bilirubin AST ALT Alkaline Phosphatase Total Protein Albumin Triglycerides Arterial Blood Glucose 257 H Arterial Blood Ionized Calcium 4.0 L Digoxin Crossmatch 01/02/21 01/02/21 01/02/21 06:25 08:00 08:00 WBC 17.5 H RBC 2.31 L Hgb 6.7 L Hct 22.1 L D MCV 96 H MCHC 30 L RDW 18.4 H Plt Count Lymph % (Auto) [place] % (Auto) Eos % (Auto) Lymph # (Auto) [place] # (Auto) Eos # (Auto) Seg Neutrophils % Seg Neuts % (Manual) Lymphocytes % (Manual) Monocytes % (Manual) Seg Neutrophils # Seg Neutrophils # Man Lymphocytes # (Manual) Monocytes # (Manual) PT INR ABG pH POC ABG pCO2 POC ABG pO2 ABG pO2 ABG HCO3 ABG O2 Saturation ABG Base Excess ABG Hemoglobin ABG Oxyhemoglobin ABG Sodium ABG Potassium ABG Chloride ABG Glucose Oxyhemoglobin Sodium 134 L Potassium 5.3 H Chloride 92.9 L Carbon Dioxide BUN 101 H Creatinine 10.9 H Glucose 560 H* POC Glucose 239 H Lactic Acid Calcium 7.6 L Phosphorus 6.50 H Magnesium Total Bilirubin AST ALT Alkaline Phosphatase Total Protein Albumin Triglycerides Arterial Blood Glucose Arterial Blood Ionized Calcium Digoxin Crossmatch 01/02/21 01/02/21 01/02/21 11:26 15:00 17:57 WBC RBC Hgb Hct MCV MCHC RDW Plt Count Lymph % (Auto) [place] % (Auto) Eos % (Auto) Lymph # (Auto) [place] # (Auto) Eos # (Auto) Seg Neutrophils % Seg Neuts % (Manual) Lymphocytes % (Manual) Monocytes % (Manual) Seg Neutrophils # Seg Neutrophils # Man Lymphocytes # (Manual) Monocytes # (Manual) PT INR ABG pH POC ABG pCO2 POC ABG pO2 ABG pO2 ABG HCO3 ABG O2 Saturation ABG Base Excess ABG Hemoglobin ABG Oxyhemoglobin ABG Sodium ABG Potassium ABG Chloride ABG Glucose Oxyhemoglobin Sodium Potassium Chloride Carbon Dioxide BUN Creatinine Glucose 241 H POC Glucose 205 H 272 H Lactic Acid Calcium Phosphorus Magnesium Total Bilirubin AST ALT Alkaline Phosphatase Total Protein Albumin Triglycerides Arterial Blood Glucose Arterial Blood Ionized Calcium Digoxin Crossmatch 01/02/21 01/02/21 01/03/21 23:25 23:43 03:45 WBC RBC Hgb Hct MCV MCHC RDW Plt Count Lymph % (Auto) [place] % (Auto) Eos % (Auto) Lymph # (Auto) [place] # (Auto) Eos # (Auto) Seg Neutrophils % Seg Neuts % (Manual) Lymphocytes % (Manual) Monocytes % (Manual) Seg Neutrophils # Seg Neutrophils # Man Lymphocytes # (Manual) Monocytes # (Manual) PT INR ABG pH POC ABG pCO2 48.3 H POC ABG pO2 134.4 H 79.7 L ABG pO2 ABG HCO3 ABG O2 Saturation ABG Base Excess ABG Hemoglobin 7.7 L 8.6 L ABG Oxyhemoglobin ABG Sodium 131.8 L 130.4 L ABG Potassium ABG Chloride 97.0 L ABG Glucose 218 H 238 H Oxyhemoglobin Sodium Potassium Chloride Carbon Dioxide BUN Creatinine Glucose POC Glucose 218 H Lactic Acid Calcium Phosphorus Magnesium Total Bilirubin AST ALT Alkaline Phosphatase Total Protein Albumin Triglycerides Arterial Blood Glucose 218 H 238 H Arterial Blood Ionized Calcium 4.1 L 4.0 L Digoxin Crossmatch 01/03/21 01/03/21 01/03/21 04:37 04:37 05:39 WBC 15.2 H RBC 2.38 L Hgb 7.3 L Hct 21.6 L MCV MCHC RDW 16.6 H Plt Count Lymph % (Auto) [place] % (Auto) Eos % (Auto) Lymph # (Auto) [place] # (Auto) Eos # (Auto) Seg Neutrophils % Seg Neuts % (Manual) Lymphocytes % (Manual) Monocytes % (Manual) Seg Neutrophils # Seg Neutrophils # Man Lymphocytes # (Manual) Monocytes # (Manual) PT INR ABG pH POC ABG pCO2 POC ABG pO2 ABG pO2 ABG HCO3 ABG O2 Saturation ABG Base Excess ABG Hemoglobin ABG Oxyhemoglobin ABG Sodium ABG Potassium ABG Chloride ABG Glucose Oxyhemoglobin Sodium 136 L Potassium Chloride 94.5 L Carbon Dioxide BUN 69 H Creatinine 8.0 H Glucose 219 H POC Glucose 222 H Lactic Acid Calcium 7.8 L Phosphorus 4.80 H D Magnesium Total Bilirubin AST ALT Alkaline Phosphatase Total Protein Albumin Triglycerides Arterial Blood Glucose Arterial Blood Ionized Calcium Digoxin Crossmatch 01/03/21 01/03/21 01/03/21 11:29 18:49 23:37 WBC RBC Hgb Hct MCV MCHC RDW Plt Count Lymph % (Auto) [place] % (Auto) Eos % (Auto) Lymph # (Auto) [place] # (Auto) Eos # (Auto) Seg Neutrophils % Seg Neuts % (Manual) Lymphocytes % (Manual) Monocytes % (Manual) Seg Neutrophils # Seg Neutrophils # Man Lymphocytes # (Manual) Monocytes # (Manual) PT INR ABG pH POC ABG pCO2 POC ABG pO2 ABG pO2 ABG HCO3 ABG O2 Saturation ABG Base Excess ABG Hemoglobin ABG Oxyhemoglobin ABG Sodium ABG Potassium ABG Chloride ABG Glucose Oxyhemoglobin Sodium Potassium Chloride Carbon Dioxide BUN Creatinine Glucose POC Glucose 232 H 129 H 140 H Lactic Acid Calcium Phosphorus Magnesium Total Bilirubin AST ALT Alkaline Phosphatase Total Protein Albumin Triglycerides Arterial Blood Glucose Arterial Blood Ionized Calcium Digoxin Crossmatch 01/04/21 01/04/21 01/04/21 03:22 04:38 04:38 WBC 11.1 H RBC 2.89 L Hgb 8.9 L Hct 26.2 L MCV MCHC RDW 16.1 H Plt Count Lymph % (Auto) [place] % (Auto) Eos % (Auto) Lymph # (Auto) [place] # (Auto) Eos # (Auto) Seg Neutrophils % Seg Neuts % (Manual) Lymphocytes % (Manual) Monocytes % (Manual) Seg Neutrophils # Seg Neutrophils # Man Lymphocytes # (Manual) Monocytes # (Manual) PT INR ABG pH POC ABG pCO2 POC ABG pO2 82.3 L ABG pO2 ABG HCO3 ABG O2 Saturation ABG Base Excess ABG Hemoglobin 8.9 L ABG Oxyhemoglobin ABG Sodium 130.5 L ABG Potassium ABG Chloride ABG Glucose 124 H Oxyhemoglobin Sodium Potassium Chloride 95.5 L Carbon Dioxide BUN 87 H Creatinine 9.7 H Glucose 118 H POC Glucose Lactic Acid Calcium 7.7 L Phosphorus Magnesium Total Bilirubin AST ALT Alkaline Phosphatase Total Protein Albumin Triglycerides Arterial Blood Glucose 124 H Arterial Blood Ionized Calcium 3.5 L Digoxin Crossmatch 01/04/21 01/04/21 01/04/21 05:39 12:04 18:04 WBC RBC Hgb Hct MCV MCHC RDW Plt Count Lymph % (Auto) [place] % (Auto) Eos % (Auto) Lymph # (Auto) [place] # (Auto) Eos # (Auto) Seg Neutrophils % Seg Neuts % (Manual) Lymphocytes % (Manual) Monocytes % (Manual) Seg Neutrophils # Seg Neutrophils # Man Lymphocytes # (Manual) Monocytes # (Manual) PT INR ABG pH POC ABG pCO2 POC ABG pO2 ABG pO2 ABG HCO3 ABG O2 Saturation ABG Base Excess ABG Hemoglobin ABG Oxyhemoglobin ABG Sodium ABG Potassium ABG Chloride ABG Glucose Oxyhemoglobin Sodium Potassium Chloride Carbon Dioxide BUN Creatinine Glucose POC Glucose 134 H 125 H 131 H Lactic Acid Calcium Phosphorus Magnesium Total Bilirubin AST ALT Alkaline Phosphatase Total Protein Albumin Triglycerides Arterial Blood Glucose Arterial Blood Ionized Calcium Digoxin Crossmatch 01/04/21 01/05/21 01/05/21 23:41 03:23 04:49 WBC RBC Hgb Hct MCV MCHC RDW Plt Count Lymph % (Auto) [place] % (Auto) Eos % (Auto) Lymph # (Auto) [place] # (Auto) Eos # (Auto) Seg Neutrophils % Seg Neuts % (Manual) Lymphocytes % (Manual) Monocytes % (Manual) Seg Neutrophils # Seg Neutrophils # Man Lymphocytes # (Manual) Monocytes # (Manual) PT INR ABG pH POC ABG pCO2 POC ABG pO2 62.8 L ABG pO2 ABG HCO3 ABG O2 Saturation ABG Base Excess ABG Hemoglobin 9.5 L ABG Oxyhemoglobin 92.0 L ABG Sodium 130.1 L ABG Potassium ABG Chloride ABG Glucose 148 H Oxyhemoglobin Sodium Potassium Chloride 96.9 L Carbon Dioxide BUN 57 H Creatinine 6.7 H Glucose 135 H POC Glucose 132 H Lactic Acid Calcium 8.0 L Phosphorus Magnesium Total Bilirubin AST ALT Alkaline Phosphatase Total Protein Albumin Triglycerides Arterial Blood Glucose 148 H Arterial Blood Ionized Calcium 4.1 L Digoxin Crossmatch 01/05/21 01/05/21 01/05/21 05:04 11:48 12:39 WBC RBC 3.03 L Hgb 9.3 L Hct 27.6 L MCV MCHC RDW 16.5 H Plt Count Lymph % (Auto) [place] % (Auto) Eos % (Auto) Lymph # (Auto) [place] # (Auto) Eos # (Auto) Seg Neutrophils % Seg Neuts % (Manual) Lymphocytes % (Manual) Monocytes % (Manual) Seg Neutrophils # Seg Neutrophils # Man Lymphocytes # (Manual) Monocytes # (Manual) PT INR ABG pH POC ABG pCO2 POC ABG pO2 ABG pO2 ABG HCO3 ABG O2 Saturation ABG Base Excess ABG Hemoglobin ABG Oxyhemoglobin ABG Sodium ABG Potassium ABG Chloride ABG Glucose Oxyhemoglobin Sodium Potassium Chloride Carbon Dioxide BUN Creatinine Glucose POC Glucose 147 H 162 H Lactic Acid Calcium Phosphorus Magnesium Total Bilirubin AST ALT Alkaline Phosphatase Total Protein Albumin Triglycerides Arterial Blood Glucose Arterial Blood Ionized Calcium Digoxin Crossmatch 01/05/21 01/05/21 01/06/21 17:50 23:32 04:15 WBC RBC Hgb Hct MCV MCHC RDW Plt Count Lymph % (Auto) [place] % (Auto) Eos % (Auto) Lymph # (Auto) [place] # (Auto) Eos # (Auto) Seg Neutrophils % Seg Neuts % (Manual) Lymphocytes % (Manual) Monocytes % (Manual) Seg Neutrophils # Seg Neutrophils # Man Lymphocytes # (Manual) Monocytes # (Manual) PT INR ABG pH POC ABG pCO2 POC ABG pO2 ABG pO2 191.0 H ABG HCO3 ABG O2 Saturation 99.2 H ABG Base Excess ABG Hemoglobin 9.0 L ABG Oxyhemoglobin ABG Sodium ABG Potassium ABG Chloride ABG Glucose Oxyhemoglobin Sodium Potassium Chloride Carbon Dioxide BUN Creatinine Glucose POC Glucose 155 H 115 H Lactic Acid Calcium Phosphorus Magnesium Total Bilirubin AST ALT Alkaline Phosphatase Total Protein Albumin Triglycerides Arterial Blood Glucose Arterial Blood Ionized Calcium Digoxin Crossmatch 01/06/21 01/06/21 01/06/21 04:45 05:56 07:03 WBC RBC 2.95 L Hgb 9.1 L Hct 26.8 L MCV MCHC RDW 16.8 H Plt Count Lymph % (Auto) [place] % (Auto) Eos % (Auto) Lymph # (Auto) [place] # (Auto) Eos # (Auto) Seg Neutrophils % Seg Neuts % (Manual) Lymphocytes % (Manual) Monocytes % (Manual) Seg Neutrophils # Seg Neutrophils # Man Lymphocytes # (Manual) Monocytes # (Manual) PT INR ABG pH POC ABG pCO2 POC ABG pO2 ABG pO2 ABG HCO3 ABG O2 Saturation ABG Base Excess ABG Hemoglobin ABG Oxyhemoglobin ABG Sodium ABG Potassium ABG Chloride ABG Glucose Oxyhemoglobin Sodium 135 L Potassium Chloride 95.9 L Carbon Dioxide BUN 82 H Creatinine 8.7 H Glucose 127 H POC Glucose 136 H Lactic Acid Calcium 8.3 L Phosphorus Magnesium Total Bilirubin AST ALT Alkaline Phosphatase Total Protein Albumin Triglycerides Arterial Blood Glucose Arterial Blood Ionized Calcium Digoxin Crossmatch 01/06/21 01/06/21 01/06/21 07:10 11:04 13:38 WBC RBC Hgb Hct MCV MCHC RDW Plt Count Lymph % (Auto) [place] % (Auto) Eos % (Auto) Lymph # (Auto) [place] # (Auto) Eos # (Auto) Seg Neutrophils % Seg Neuts % (Manual) Lymphocytes % (Manual) Monocytes % (Manual) Seg Neutrophils # Seg Neutrophils # Man Lymphocytes # (Manual) Monocytes # (Manual) PT INR ABG pH POC ABG pCO2 POC ABG pO2 ABG pO2 ABG HCO3 ABG O2 Saturation ABG Base Excess ABG Hemoglobin ABG Oxyhemoglobin ABG Sodium ABG Potassium ABG Chloride ABG Glucose Oxyhemoglobin Sodium Potassium Chloride Carbon Dioxide BUN Creatinine Glucose POC Glucose 178 H 155 H Lactic Acid Calcium Phosphorus Magnesium Total Bilirubin AST ALT Alkaline Phosphatase Total Protein Albumin Triglycerides Arterial Blood Glucose Arterial Blood Ionized Calcium Digoxin Crossmatch See Detail 01/06/21 01/06/21 01/07/21 17:35 22:21 03:07 WBC RBC Hgb Hct MCV MCHC RDW Plt Count Lymph % (Auto) [place] % (Auto) Eos % (Auto) Lymph # (Auto) [place] # (Auto) Eos # (Auto) Seg Neutrophils % Seg Neuts % (Manual) Lymphocytes % (Manual) Monocytes % (Manual) Seg Neutrophils # Seg Neutrophils # Man Lymphocytes # (Manual) Monocytes # (Manual) PT INR ABG pH POC ABG pCO2 POC ABG pO2 ABG pO2 ABG HCO3 ABG O2 Saturation ABG Base Excess ABG Hemoglobin 11.9 L ABG Oxyhemoglobin ABG Sodium 135.6 L ABG Potassium ABG Chloride ABG Glucose 181 H Oxyhemoglobin Sodium Potassium Chloride Carbon Dioxide BUN Creatinine Glucose POC Glucose 138 H 202 H Lactic Acid Calcium Phosphorus Magnesium Total Bilirubin AST ALT Alkaline Phosphatase Total Protein Albumin Triglycerides Arterial Blood Glucose 181 H Arterial Blood Ionized Calcium 4.3 L Digoxin Crossmatch 01/07/21 01/07/21 01/07/21 04:50 05:21 08:37 WBC 12.4 H RBC Hgb 11.1 L Hct 33.3 L D MCV MCHC RDW 17.0 H Plt Count Lymph % (Auto) 3.2 L [place] % (Auto) 9.4 H Eos % (Auto) Lymph # (Auto) 0.4 L [place] # (Auto) 1.2 H Eos # (Auto) Seg Neutrophils % 86.6 H Seg Neuts % (Manual) Lymphocytes % (Manual) Monocytes % (Manual) Seg Neutrophils # 10.7 H Seg Neutrophils # Man Lymphocytes # (Manual) Monocytes # (Manual) PT INR ABG pH POC ABG pCO2 POC ABG pO2 ABG pO2 ABG HCO3 ABG O2 Saturation ABG Base Excess ABG Hemoglobin ABG Oxyhemoglobin ABG Sodium ABG Potassium ABG Chloride ABG Glucose Oxyhemoglobin Sodium Potassium Chloride Carbon Dioxide BUN 60 H Creatinine 6.3 H Glucose 154 H POC Glucose 177 H Lactic Acid Calcium 8.3 L Phosphorus Magnesium Total Bilirubin AST ALT Alkaline Phosphatase Total Protein Albumin Triglycerides Arterial Blood Glucose Arterial Blood Ionized Calcium Digoxin Crossmatch 01/07/21 01/07/21 01/07/21 11:21 12:19 17:11 WBC RBC Hgb Hct MCV MCHC RDW Plt Count Lymph % (Auto) [place] % (Auto) Eos % (Auto) Lymph # (Auto) [place] # (Auto) Eos # (Auto) Seg Neutrophils % Seg Neuts % (Manual) Lymphocytes % (Manual) Monocytes % (Manual) Seg Neutrophils # Seg Neutrophils # Man Lymphocytes # (Manual) Monocytes # (Manual) PT INR ABG pH POC ABG pCO2 POC ABG pO2 ABG pO2 ABG HCO3 ABG O2 Saturation ABG Base Excess ABG Hemoglobin ABG Oxyhemoglobin ABG Sodium ABG Potassium ABG Chloride ABG Glucose Oxyhemoglobin Sodium Potassium Chloride Carbon Dioxide BUN Creatinine Glucose POC Glucose 144 H 137 H 119 H Lactic Acid Calcium Phosphorus Magnesium Total Bilirubin AST ALT Alkaline Phosphatase Total Protein Albumin Triglycerides Arterial Blood Glucose Arterial Blood Ionized Calcium Digoxin Crossmatch 01/07/21 01/07/21 01/08/21 17:14 23:39 04:34 WBC RBC Hgb Hct MCV MCHC RDW Plt Count Lymph % (Auto) [place] % (Auto) Eos % (Auto) Lymph # (Auto) [place] # (Auto) Eos # (Auto) Seg Neutrophils % Seg Neuts % (Manual) Lymphocytes % (Manual) Monocytes % (Manual) Seg Neutrophils # Seg Neutrophils # Man Lymphocytes # (Manual) Monocytes # (Manual) PT INR ABG pH 7.345 L POC ABG pCO2 POC ABG pO2 ABG pO2 67.4 L ABG HCO3 ABG O2 Saturation 94.3 L ABG Base Excess -3.9 L ABG Hemoglobin 8.9 L ABG Oxyhemoglobin ABG Sodium ABG Potassium ABG Chloride ABG Glucose Oxyhemoglobin 92.3 L Sodium Potassium Chloride Carbon Dioxide 20 L BUN 93 H Creatinine 8.8 H Glucose 120 H POC Glucose 129 H Lactic Acid Calcium Phosphorus Magnesium Total Bilirubin AST ALT Alkaline Phosphatase 133 H Total Protein 5.4 L Albumin 1.9 L Triglycerides Arterial Blood Glucose Arterial Blood Ionized Calcium Digoxin Crossmatch 01/08/21 01/08/21 01/08/21 05:26 11:38 17:19 WBC RBC Hgb Hct MCV MCHC RDW Plt Count Lymph % (Auto) [place] % (Auto) Eos % (Auto) Lymph # (Auto) [place] # (Auto) Eos # (Auto) Seg Neutrophils % Seg Neuts % (Manual) Lymphocytes % (Manual) Monocytes % (Manual) Seg Neutrophils # Seg Neutrophils # Man Lymphocytes # (Manual) Monocytes # (Manual) PT INR ABG pH POC ABG pCO2 POC ABG pO2 ABG pO2 ABG HCO3 ABG O2 Saturation ABG Base Excess ABG Hemoglobin ABG Oxyhemoglobin ABG Sodium ABG Potassium ABG Chloride ABG Glucose Oxyhemoglobin Sodium Potassium Chloride Carbon Dioxide BUN Creatinine Glucose POC Glucose 125 H 146 H 136 H Lactic Acid Calcium Phosphorus Magnesium Total Bilirubin AST ALT Alkaline Phosphatase Total Protein Albumin Triglycerides Arterial Blood Glucose Arterial Blood Ionized Calcium Digoxin Crossmatch 01/08/21 01/09/21 01/09/21 23:52 05:13 05:21 WBC RBC Hgb Hct MCV MCHC RDW Plt Count Lymph % (Auto) [place] % (Auto) Eos % (Auto) Lymph # (Auto) [place] # (Auto) Eos # (Auto) Seg Neutrophils % Seg Neuts % (Manual) Lymphocytes % (Manual) Monocytes % (Manual) Seg Neutrophils # Seg Neutrophils # Man Lymphocytes # (Manual) Monocytes # (Manual) PT INR ABG pH POC ABG pCO2 POC ABG pO2 ABG pO2 ABG HCO3 ABG O2 Saturation ABG Base Excess ABG Hemoglobin ABG Oxyhemoglobin ABG Sodium ABG Potassium ABG Chloride ABG Glucose Oxyhemoglobin Sodium Potassium Chloride Carbon Dioxide 16 L BUN 123 H Creatinine 10.8 H Glucose 145 H POC Glucose 143 H 144 H Lactic Acid Calcium Phosphorus 5.00 H D Magnesium 2.40 H Total Bilirubin AST ALT Alkaline Phosphatase Total Protein Albumin Triglycerides Arterial Blood Glucose Arterial Blood Ionized Calcium Digoxin Crossmatch 01/09/21 01/09/21 01/09/21 12:08 17:20 23:56 WBC RBC Hgb Hct MCV MCHC RDW Plt Count Lymph % (Auto) [place] % (Auto) Eos % (Auto) Lymph # (Auto) [place] # (Auto) Eos # (Auto) Seg Neutrophils % Seg Neuts % (Manual) Lymphocytes % (Manual) Monocytes % (Manual) Seg Neutrophils # Seg Neutrophils # Man Lymphocytes # (Manual) Monocytes # (Manual) PT INR ABG pH POC ABG pCO2 POC ABG pO2 ABG pO2 ABG HCO3 ABG O2 Saturation ABG Base Excess ABG Hemoglobin ABG Oxyhemoglobin ABG Sodium ABG Potassium ABG Chloride ABG Glucose Oxyhemoglobin Sodium Potassium Chloride Carbon Dioxide BUN Creatinine Glucose POC Glucose 153 H 160 H 158 H Lactic Acid Calcium Phosphorus Magnesium Total Bilirubin AST ALT Alkaline Phosphatase Total Protein Albumin Triglycerides Arterial Blood Glucose Arterial Blood Ionized Calcium Digoxin Crossmatch 01/10/21 01/10/21 01/10/21 04:52 05:44 07:41 WBC RBC Hgb Hct MCV MCHC RDW Plt Count Lymph % (Auto) [place] % (Auto) Eos % (Auto) Lymph # (Auto) [place] # (Auto) Eos # (Auto) Seg Neutrophils % Seg Neuts % (Manual) Lymphocytes % (Manual) Monocytes % (Manual) Seg Neutrophils # Seg Neutrophils # Man Lymphocytes # (Manual) Monocytes # (Manual) PT INR ABG pH POC ABG pCO2 POC ABG pO2 ABG pO2 ABG HCO3 ABG O2 Saturation ABG Base Excess ABG Hemoglobin ABG Oxyhemoglobin ABG Sodium ABG Potassium ABG Chloride ABG Glucose Oxyhemoglobin Sodium 135 L Potassium 3.5 L D Chloride 95.0 L Carbon Dioxide 21 L BUN 93 H Creatinine 8.3 H Glucose 127 H POC Glucose 135 H 157 H Lactic Acid Calcium Phosphorus Magnesium Total Bilirubin AST ALT Alkaline Phosphatase Total Protein Albumin Triglycerides Arterial Blood Glucose Arterial Blood Ionized Calcium Digoxin Crossmatch 01/10/21 01/10/21 01/10/21 09:26 12:03 17:44 WBC 18.2 H RBC 3.14 L Hgb 9.7 L Hct 28.2 L MCV MCHC RDW 16.5 H Plt Count Lymph % (Auto) [place] % (Auto) Eos % (Auto) Lymph # (Auto) [place] # (Auto) Eos # (Auto) Seg Neutrophils % Seg Neuts % (Manual) 95.0 H Lymphocytes % (Manual) 3.0 L Monocytes % (Manual) Seg Neutrophils # Seg Neutrophils # Man 17.3 H Lymphocytes # (Manual) 0.5 L Monocytes # (Manual) PT INR ABG pH POC ABG pCO2 POC ABG pO2 ABG pO2 ABG HCO3 ABG O2 Saturation ABG Base Excess ABG Hemoglobin ABG Oxyhemoglobin ABG Sodium ABG Potassium ABG Chloride ABG Glucose Oxyhemoglobin Sodium Potassium Chloride Carbon Dioxide BUN Creatinine Glucose POC Glucose 163 H 171 H Lactic Acid Calcium Phosphorus Magnesium Total Bilirubin AST ALT Alkaline Phosphatase Total Protein Albumin Triglycerides Arterial Blood Glucose Arterial Blood Ionized Calcium Digoxin Crossmatch 01/10/21 01/11/21 01/11/21 23:50 05:18 05:18 WBC RBC Hgb Hct MCV MCHC RDW Plt Count Lymph % (Auto) [place] % (Auto) Eos % (Auto) Lymph # (Auto) [place] # (Auto) Eos # (Auto) Seg Neutrophils % Seg Neuts % (Manual) Lymphocytes % (Manual) Monocytes % (Manual) Seg Neutrophils # Seg Neutrophils # Man Lymphocytes # (Manual) Monocytes # (Manual) PT INR ABG pH POC ABG pCO2 POC ABG pO2 ABG pO2 ABG HCO3 ABG O2 Saturation ABG Base Excess ABG Hemoglobin ABG Oxyhemoglobin ABG Sodium ABG Potassium ABG Chloride ABG Glucose Oxyhemoglobin Sodium 136 L Potassium Chloride 94.6 L Carbon Dioxide 19 L BUN 145 H Creatinine 10.6 H Glucose 152 H POC Glucose 151 H Lactic Acid Calcium Phosphorus 6.00 H D Magnesium Total Bilirubin AST ALT Alkaline Phosphatase Total Protein Albumin Triglycerides Arterial Blood Glucose Arterial Blood Ionized Calcium Digoxin 0.8 L Crossmatch 01/11/21 01/11/21 01/11/21 05:18 05:19 11:28 WBC 17.4 H RBC 3.34 L Hgb 10.2 L Hct 29.7 L MCV MCHC RDW 15.9 H Plt Count Lymph % (Auto) [place] % (Auto) Eos % (Auto) Lymph # (Auto) [place] # (Auto) Eos # (Auto) Seg Neutrophils % Seg Neuts % (Manual) Lymphocytes % (Manual) Monocytes % (Manual) Seg Neutrophils # Seg Neutrophils # Man Lymphocytes # (Manual) Monocytes # (Manual) PT INR ABG pH POC ABG pCO2 POC ABG pO2 ABG pO2 ABG HCO3 ABG O2 Saturation ABG Base Excess ABG Hemoglobin ABG Oxyhemoglobin ABG Sodium ABG Potassium ABG Chloride ABG Glucose Oxyhemoglobin Sodium Potassium Chloride Carbon Dioxide BUN Creatinine Glucose POC Glucose 149 H 178 H Lactic Acid Calcium Phosphorus Magnesium Total Bilirubin AST ALT Alkaline Phosphatase Total Protein Albumin Triglycerides Arterial Blood Glucose Arterial Blood Ionized Calcium Digoxin Crossmatch 01/11/21 01/11/21 01/12/21 17:31 23:14 05:18 WBC RBC Hgb Hct MCV MCHC RDW Plt Count Lymph % (Auto) [place] % (Auto) Eos % (Auto) Lymph # (Auto) [place] # (Auto) Eos # (Auto) Seg Neutrophils % Seg Neuts % (Manual) Lymphocytes % (Manual) Monocytes % (Manual) Seg Neutrophils # Seg Neutrophils # Man Lymphocytes # (Manual) Monocytes # (Manual) PT INR ABG pH POC ABG pCO2 POC ABG pO2 ABG pO2 ABG HCO3 ABG O2 Saturation ABG Base Excess ABG Hemoglobin ABG Oxyhemoglobin ABG Sodium ABG Potassium ABG Chloride ABG Glucose Oxyhemoglobin Sodium Potassium Chloride Carbon Dioxide BUN Creatinine Glucose POC Glucose 158 H 145 H 148 H Lactic Acid Calcium Phosphorus Magnesium Total Bilirubin AST ALT Alkaline Phosphatase Total Protein Albumin Triglycerides Arterial Blood Glucose Arterial Blood Ionized Calcium Digoxin Crossmatch 01/12/21 01/12/21 01/12/21 06:50 10:45 13:34 WBC RBC Hgb Hct MCV MCHC RDW Plt Count Lymph % (Auto) [place] % (Auto) Eos % (Auto) Lymph # (Auto) [place] # (Auto) Eos # (Auto) Seg Neutrophils % Seg Neuts % (Manual) Lymphocytes % (Manual) Monocytes % (Manual) Seg Neutrophils # Seg Neutrophils # Man Lymphocytes # (Manual) Monocytes # (Manual) PT INR ABG pH POC ABG pCO2 POC ABG pO2 ABG pO2 ABG HCO3 ABG O2 Saturation ABG Base Excess ABG Hemoglobin ABG Oxyhemoglobin ABG Sodium ABG Potassium ABG Chloride ABG Glucose Oxyhemoglobin Sodium Potassium 2.9 L* D Chloride 94.8 L Carbon Dioxide BUN 102 H Creatinine 8.3 H Glucose 139 H POC Glucose 151 H 134 H Lactic Acid Calcium 8.1 L Phosphorus 5.00 H Magnesium Total Bilirubin AST ALT Alkaline Phosphatase Total Protein Albumin Triglycerides Arterial Blood Glucose Arterial Blood Ionized Calcium Digoxin Crossmatch 01/12/21 01/12/21 01/13/21 16:59 23:06 03:45 WBC RBC Hgb Hct MCV MCHC RDW Plt Count Lymph % (Auto) [place] % (Auto) Eos % (Auto) Lymph # (Auto) [place] # (Auto) Eos # (Auto) Seg Neutrophils % Seg Neuts % (Manual) Lymphocytes % (Manual) Monocytes % (Manual) Seg Neutrophils # Seg Neutrophils # Man Lymphocytes # (Manual) Monocytes # (Manual) PT INR ABG pH POC ABG pCO2 POC ABG pO2 ABG pO2 ABG HCO3 ABG O2 Saturation ABG Base Excess ABG Hemoglobin ABG Oxyhemoglobin ABG Sodium ABG Potassium ABG Chloride ABG Glucose Oxyhemoglobin Sodium 136 L Potassium 3.4 L Chloride 92.6 L Carbon Dioxide BUN 134 H Creatinine 10.4 H Glucose 126 H POC Glucose 108 H 135 H Lactic Acid Calcium 8.3 L Phosphorus 5.60 H Magnesium 1.50 L Total Bilirubin AST ALT Alkaline Phosphatase Total Protein Albumin Triglycerides Arterial Blood Glucose Arterial Blood Ionized Calcium Digoxin Crossmatch 01/13/21 01/13/21 01/13/21 03:45 05:55 11:59 WBC 17.6 H RBC 3.33 L Hgb 10.2 L Hct 29.5 L MCV MCHC 35 H RDW 15.5 H Plt Count Lymph % (Auto) 4.4 L [place] % (Auto) 10.3 H Eos % (Auto) Lymph # (Auto) 0.8 L [place] # (Auto) 1.8 H Eos # (Auto) Seg Neutrophils % 84.2 H Seg Neuts % (Manual) Lymphocytes % (Manual) Monocytes % (Manual) Seg Neutrophils # 14.8 H Seg Neutrophils # Man Lymphocytes # (Manual) Monocytes # (Manual) PT INR ABG pH POC ABG pCO2 POC ABG pO2 ABG pO2 ABG HCO3 ABG O2 Saturation ABG Base Excess ABG Hemoglobin ABG Oxyhemoglobin ABG Sodium ABG Potassium ABG Chloride ABG Glucose Oxyhemoglobin Sodium Potassium Chloride Carbon Dioxide BUN Creatinine Glucose POC Glucose 134 H 141 H Lactic Acid Calcium Phosphorus Magnesium Total Bilirubin AST ALT Alkaline Phosphatase Total Protein Albumin Triglycerides Arterial Blood Glucose Arterial Blood Ionized Calcium Digoxin Crossmatch 01/13/21 01/14/21 01/14/21 23:09 05:39 05:57 WBC RBC Hgb Hct MCV MCHC RDW Plt Count Lymph % (Auto) [place] % (Auto) Eos % (Auto) Lymph # (Auto) [place] # (Auto) Eos # (Auto) Seg Neutrophils % Seg Neuts % (Manual) Lymphocytes % (Manual) Monocytes % (Manual) Seg Neutrophils # Seg Neutrophils # Man Lymphocytes # (Manual) Monocytes # (Manual) PT INR ABG pH POC ABG pCO2 POC ABG pO2 ABG pO2 ABG HCO3 ABG O2 Saturation ABG Base Excess ABG Hemoglobin ABG Oxyhemoglobin ABG Sodium ABG Potassium ABG Chloride ABG Glucose Oxyhemoglobin Sodium Potassium Chloride 97.6 L Carbon Dioxide BUN 81 H Creatinine 7.6 H Glucose 193 H POC Glucose 106 H 190 H Lactic Acid Calcium 8.2 L Phosphorus 4.60 H Magnesium Total Bilirubin AST ALT Alkaline Phosphatase Total Protein Albumin Triglycerides Arterial Blood Glucose Arterial Blood Ionized Calcium Digoxin Crossmatch 01/14/21 01/14/21 01/14/21 10:00 16:56 16:59 WBC 17.0 H RBC 3.10 L Hgb 9.6 L Hct 27.4 L MCV MCHC 35 H RDW 15.6 H Plt Count Lymph % (Auto) [place] % (Auto) Eos % (Auto) Lymph # (Auto) [place] # (Auto) Eos # (Auto) Seg Neutrophils % Seg Neuts % (Manual) Lymphocytes % (Manual) Monocytes % (Manual) Seg Neutrophils # Seg Neutrophils # Man Lymphocytes # (Manual) Monocytes # (Manual) PT INR ABG pH POC ABG pCO2 POC ABG pO2 ABG pO2 ABG HCO3 ABG O2 Saturation ABG Base Excess ABG Hemoglobin ABG Oxyhemoglobin ABG Sodium ABG Potassium ABG Chloride ABG Glucose Oxyhemoglobin Sodium Potassium Chloride Carbon Dioxide BUN Creatinine Glucose POC Glucose 37 L 34 L Lactic Acid Calcium Phosphorus Magnesium Total Bilirubin AST ALT Alkaline Phosphatase Total Protein Albumin Triglycerides Arterial Blood Glucose Arterial Blood Ionized Calcium Digoxin Crossmatch 01/14/21 01/14/21 01/14/21 17:02 18:34 23:17 WBC RBC Hgb Hct MCV MCHC RDW Plt Count Lymph % (Auto) [place] % (Auto) Eos % (Auto) Lymph # (Auto) [place] # (Auto) Eos # (Auto) Seg Neutrophils % Seg Neuts % (Manual) Lymphocytes % (Manual) Monocytes % (Manual) Seg Neutrophils # Seg Neutrophils # Man Lymphocytes # (Manual) Monocytes # (Manual) PT INR ABG pH POC ABG pCO2 POC ABG pO2 ABG pO2 ABG HCO3 ABG O2 Saturation ABG Base Excess ABG Hemoglobin ABG Oxyhemoglobin ABG Sodium ABG Potassium ABG Chloride ABG Glucose Oxyhemoglobin Sodium Potassium Chloride Carbon Dioxide BUN Creatinine Glucose POC Glucose 35 L 143 H 53 L Lactic Acid Calcium Phosphorus Magnesium Total Bilirubin AST ALT Alkaline Phosphatase Total Protein Albumin Triglycerides Arterial Blood Glucose Arterial Blood Ionized Calcium Digoxin Crossmatch 01/15/21 01/15/21 01/15/21 00:34 04:00 04:00 WBC 15.9 H RBC 3.02 L Hgb 9.3 L Hct 27.3 L MCV MCHC RDW 15.6 H Plt Count Lymph % (Auto) [place] % (Auto) Eos % (Auto) Lymph # (Auto) [place] # (Auto) Eos # (Auto) Seg Neutrophils % Seg Neuts % (Manual) Lymphocytes % (Manual) Monocytes % (Manual) Seg Neutrophils # Seg Neutrophils # Man Lymphocytes # (Manual) Monocytes # (Manual) PT INR ABG pH POC ABG pCO2 POC ABG pO2 ABG pO2 ABG HCO3 ABG O2 Saturation ABG Base Excess ABG Hemoglobin ABG Oxyhemoglobin ABG Sodium ABG Potassium ABG Chloride ABG Glucose Oxyhemoglobin Sodium 136 L Potassium Chloride 94.3 L Carbon Dioxide BUN 117 H Creatinine 9.9 H Glucose 217 H POC Glucose 181 H Lactic Acid Calcium 8.3 L Phosphorus Magnesium Total Bilirubin AST ALT Alkaline Phosphatase Total Protein Albumin Triglycerides Arterial Blood Glucose Arterial Blood Ionized Calcium Digoxin Crossmatch 01/15/21 01/15/21 01/15/21 05:29 11:51 23:13 WBC RBC Hgb Hct MCV MCHC RDW Plt Count Lymph % (Auto) [place] % (Auto) Eos % (Auto) Lymph # (Auto) [place] # (Auto) Eos # (Auto) Seg Neutrophils % Seg Neuts % (Manual) Lymphocytes % (Manual) Monocytes % (Manual) Seg Neutrophils # Seg Neutrophils # Man Lymphocytes # (Manual) Monocytes # (Manual) PT INR ABG pH POC ABG pCO2 POC ABG pO2 ABG pO2 ABG HCO3 ABG O2 Saturation ABG Base Excess ABG Hemoglobin ABG Oxyhemoglobin ABG Sodium ABG Potassium ABG Chloride ABG Glucose Oxyhemoglobin Sodium Potassium Chloride Carbon Dioxide BUN Creatinine Glucose POC Glucose 221 H 62 L 154 H Lactic Acid Calcium Phosphorus Magnesium Total Bilirubin AST ALT Alkaline Phosphatase Total Protein Albumin Triglycerides Arterial Blood Glucose Arterial Blood Ionized Calcium Digoxin Crossmatch 01/16/21 01/16/21 01/16/21 05:04 06:44 06:44 WBC 14.8 H RBC 2.76 L Hgb 8.2 L Hct 24.8 L MCV MCHC RDW 15.6 H Plt Count Lymph % (Auto) [place] % (Auto) Eos % (Auto) Lymph # (Auto) [place] # (Auto) Eos # (Auto) Seg Neutrophils % Seg Neuts % (Manual) Lymphocytes % (Manual) Monocytes % (Manual) Seg Neutrophils # Seg Neutrophils # Man Lymphocytes # (Manual) Monocytes # (Manual) PT INR ABG pH POC ABG pCO2 POC ABG pO2 ABG pO2 ABG HCO3 ABG O2 Saturation ABG Base Excess ABG Hemoglobin ABG Oxyhemoglobin ABG Sodium ABG Potassium ABG Chloride ABG Glucose Oxyhemoglobin Sodium 133 L Potassium Chloride 92.3 L Carbon Dioxide 20 L BUN 160 H Creatinine 12.1 H Glucose 177 H POC Glucose 168 H Lactic Acid Calcium 8.1 L Phosphorus 5.50 H Magnesium 2.50 H Total Bilirubin AST ALT Alkaline Phosphatase Total Protein Albumin Triglycerides Arterial Blood Glucose Arterial Blood Ionized Calcium Digoxin Crossmatch 01/16/21 01/17/21 01/17/21 23:20 05:14 05:14 WBC 12.7 H RBC 2.75 L Hgb 8.5 L Hct 24.6 L MCV MCHC 35 H RDW 15.4 H Plt Count Lymph % (Auto) [place] % (Auto) Eos % (Auto) Lymph # (Auto) [place] # (Auto) Eos # (Auto) Seg Neutrophils % Seg Neuts % (Manual) Lymphocytes % (Manual) Monocytes % (Manual) Seg Neutrophils # Seg Neutrophils # Man Lymphocytes # (Manual) Monocytes # (Manual) PT INR ABG pH POC ABG pCO2 POC ABG pO2 ABG pO2 ABG HCO3 ABG O2 Saturation ABG Base Excess ABG Hemoglobin ABG Oxyhemoglobin ABG Sodium ABG Potassium ABG Chloride ABG Glucose Oxyhemoglobin Sodium Potassium Chloride 97.9 L Carbon Dioxide BUN 84 H Creatinine 7.8 H Glucose 176 H POC Glucose 153 H Lactic Acid Calcium 8.0 L Phosphorus Magnesium Total Bilirubin AST ALT Alkaline Phosphatase Total Protein Albumin Triglycerides Arterial Blood Glucose Arterial Blood Ionized Calcium Digoxin Crossmatch 01/17/21 01/17/21 01/18/21 05:33 11:58 00:07 WBC RBC Hgb Hct MCV MCHC RDW Plt Count Lymph % (Auto) [place] % (Auto) Eos % (Auto) Lymph # (Auto) [place] # (Auto) Eos # (Auto) Seg Neutrophils % Seg Neuts % (Manual) Lymphocytes % (Manual) Monocytes % (Manual) Seg Neutrophils # Seg Neutrophils # Man Lymphocytes # (Manual) Monocytes # (Manual) PT INR ABG pH POC ABG pCO2 POC ABG pO2 ABG pO2 ABG HCO3 ABG O2 Saturation ABG Base Excess ABG Hemoglobin ABG Oxyhemoglobin ABG Sodium ABG Potassium ABG Chloride ABG Glucose Oxyhemoglobin Sodium Potassium Chloride Carbon Dioxide BUN Creatinine Glucose POC Glucose 162 H 64 L 146 H Lactic Acid Calcium Phosphorus Magnesium Total Bilirubin AST ALT Alkaline Phosphatase Total Protein Albumin Triglycerides Arterial Blood Glucose Arterial Blood Ionized Calcium Digoxin Crossmatch 01/18/21 01/18/21 01/18/21 04:19 04:19 06:15 WBC 15.6 H RBC 3.00 L Hgb 9.2 L Hct 26.8 L MCV MCHC 35 H RDW 15.6 H Plt Count Lymph % (Auto) [place] % (Auto) Eos % (Auto) Lymph # (Auto) [place] # (Auto) Eos # (Auto) Seg Neutrophils % Seg Neuts % (Manual) Lymphocytes % (Manual) Monocytes % (Manual) Seg Neutrophils # Seg Neutrophils # Man Lymphocytes # (Manual) Monocytes # (Manual) PT INR ABG pH POC ABG pCO2 POC ABG pO2 ABG pO2 ABG HCO3 ABG O2 Saturation ABG Base Excess ABG Hemoglobin ABG Oxyhemoglobin ABG Sodium ABG Potassium ABG Chloride ABG Glucose Oxyhemoglobin Sodium Potassium Chloride 96.2 L Carbon Dioxide BUN 117 H Creatinine 10.0 H Glucose 165 H POC Glucose 189 H Lactic Acid Calcium Phosphorus 4.70 H D Magnesium Total Bilirubin AST ALT Alkaline Phosphatase Total Protein Albumin Triglycerides Arterial Blood Glucose Arterial Blood Ionized Calcium Digoxin Crossmatch 01/18/21 01/18/21 01/18/21 11:53 13:44 15:08 WBC RBC Hgb Hct MCV MCHC RDW Plt Count Lymph % (Auto) [place] % (Auto) Eos % (Auto) Lymph # (Auto) [place] # (Auto) Eos # (Auto) Seg Neutrophils % Seg Neuts % (Manual) Lymphocytes % (Manual) Monocytes % (Manual) Seg Neutrophils # Seg Neutrophils # Man Lymphocytes # (Manual) Monocytes # (Manual) PT INR ABG pH POC ABG pCO2 POC ABG pO2 ABG pO2 ABG HCO3 ABG O2 Saturation ABG Base Excess ABG Hemoglobin ABG Oxyhemoglobin ABG Sodium ABG Potassium ABG Chloride ABG Glucose Oxyhemoglobin Sodium Potassium Chloride Carbon Dioxide BUN Creatinine Glucose POC Glucose 69 L 50 L 56 L Lactic Acid Calcium Phosphorus Magnesium Total Bilirubin AST ALT Alkaline Phosphatase Total Protein Albumin Triglycerides Arterial Blood Glucose Arterial Blood Ionized Calcium Digoxin Crossmatch 01/18/21 01/19/21 01/19/21 17:50 04:55 08:56 WBC 12.7 H RBC 2.89 L Hgb 8.7 L Hct 25.6 L MCV MCHC RDW 15.5 H Plt Count Lymph % (Auto) [place] % (Auto) Eos % (Auto) Lymph # (Auto) [place] # (Auto) Eos # (Auto) Seg Neutrophils % Seg Neuts % (Manual) Lymphocytes % (Manual) Monocytes % (Manual) Seg Neutrophils # Seg Neutrophils # Man Lymphocytes # (Manual) Monocytes # (Manual) PT INR ABG pH POC ABG pCO2 POC ABG pO2 ABG pO2 ABG HCO3 ABG O2 Saturation ABG Base Excess ABG Hemoglobin ABG Oxyhemoglobin ABG Sodium ABG Potassium ABG Chloride ABG Glucose Oxyhemoglobin Sodium Potassium Chloride Carbon Dioxide BUN Creatinine Glucose POC Glucose 137 H 120 H Lactic Acid Calcium Phosphorus Magnesium Total Bilirubin AST ALT Alkaline Phosphatase Total Protein Albumin Triglycerides Arterial Blood Glucose Arterial Blood Ionized Calcium Digoxin Crossmatch 01/19/21 01/19/21 01/19/21 08:56 11:33 17:32 WBC RBC Hgb Hct MCV MCHC RDW Plt Count Lymph % (Auto) [place] % (Auto) Eos % (Auto) Lymph # (Auto) [place] # (Auto) Eos # (Auto) Seg Neutrophils % Seg Neuts % (Manual) Lymphocytes % (Manual) Monocytes % (Manual) Seg Neutrophils # Seg Neutrophils # Man Lymphocytes # (Manual) Monocytes # (Manual) PT INR ABG pH POC ABG pCO2 POC ABG pO2 ABG pO2 ABG HCO3 ABG O2 Saturation ABG Base Excess ABG Hemoglobin ABG Oxyhemoglobin ABG Sodium ABG Potassium ABG Chloride ABG Glucose Oxyhemoglobin Sodium Potassium Chloride Carbon Dioxide BUN 66 H Creatinine 7.7 H Glucose 119 H POC Glucose 160 H 125 H Lactic Acid Calcium 8.3 L Phosphorus Magnesium Total Bilirubin AST ALT Alkaline Phosphatase Total Protein Albumin Triglycerides Arterial Blood Glucose Arterial Blood Ionized Calcium Digoxin Crossmatch 01/19/21 01/20/21 01/20/21 23:30 03:35 03:35 WBC 12.0 H RBC 2.62 L Hgb 8.3 L Hct 23.2 L MCV MCHC 36 H RDW Plt Count Lymph % (Auto) [place] % (Auto) Eos % (Auto) Lymph # (Auto) [place] # (Auto) Eos # (Auto) Seg Neutrophils % Seg Neuts % (Manual) Lymphocytes % (Manual) Monocytes % (Manual) Seg Neutrophils # Seg Neutrophils # Man Lymphocytes # (Manual) Monocytes # (Manual) PT INR ABG pH POC ABG pCO2 POC ABG pO2 ABG pO2 ABG HCO3 ABG O2 Saturation ABG Base Excess ABG Hemoglobin ABG Oxyhemoglobin ABG Sodium ABG Potassium ABG Chloride ABG Glucose Oxyhemoglobin Sodium Potassium Chloride Carbon Dioxide BUN 46 H Creatinine 5.9 H Glucose 128 H POC Glucose 127 H Lactic Acid Calcium Phosphorus Magnesium Total Bilirubin AST ALT Alkaline Phosphatase Total Protein Albumin Triglycerides Arterial Blood Glucose Arterial Blood Ionized Calcium Digoxin Crossmatch 01/20/21 01/20/21 01/20/21 06:19 11:55 18:00 WBC RBC Hgb Hct MCV MCHC RDW Plt Count Lymph % (Auto) [place] % (Auto) Eos % (Auto) Lymph # (Auto) [place] # (Auto) Eos # (Auto) Seg Neutrophils % Seg Neuts % (Manual) Lymphocytes % (Manual) Monocytes % (Manual) Seg Neutrophils # Seg Neutrophils # Man Lymphocytes # (Manual) Monocytes # (Manual) PT INR ABG pH POC ABG pCO2 POC ABG pO2 ABG pO2 ABG HCO3 ABG O2 Saturation ABG Base Excess ABG Hemoglobin ABG Oxyhemoglobin ABG Sodium ABG Potassium ABG Chloride ABG Glucose Oxyhemoglobin Sodium Potassium Chloride Carbon Dioxide BUN Creatinine Glucose POC Glucose 119 H 128 H 115 H Lactic Acid Calcium Phosphorus Magnesium Total Bilirubin AST ALT Alkaline Phosphatase Total Protein Albumin Triglycerides Arterial Blood Glucose Arterial Blood Ionized Calcium Digoxin Crossmatch 01/20/21 01/21/21 01/21/21 23:26 04:39 05:27 WBC RBC Hgb Hct MCV MCHC RDW Plt Count Lymph % (Auto) [place] % (Auto) Eos % (Auto) Lymph # (Auto) [place] # (Auto) Eos # (Auto) Seg Neutrophils % Seg Neuts % (Manual) Lymphocytes % (Manual) Monocytes % (Manual) Seg Neutrophils # Seg Neutrophils # Man Lymphocytes # (Manual) Monocytes # (Manual) PT INR ABG pH POC ABG pCO2 POC ABG pO2 ABG pO2 ABG HCO3 ABG O2 Saturation ABG Base Excess ABG Hemoglobin ABG Oxyhemoglobin ABG Sodium ABG Potassium ABG Chloride ABG Glucose Oxyhemoglobin Sodium Potassium Chloride Carbon Dioxide BUN 37 H Creatinine 5.3 H Glucose 109 H POC Glucose 108 H 107 H Lactic Acid Calcium Phosphorus 2.10 L Magnesium 1.50 L Total Bilirubin AST ALT Alkaline Phosphatase 143 H Total Protein 6.1 L Albumin 3.0 L Triglycerides Arterial Blood Glucose Arterial Blood Ionized Calcium Digoxin Crossmatch 01/21/21 01/21/21 01/22/21 11:35 17:53 00:20 WBC RBC Hgb Hct MCV MCHC RDW Plt Count Lymph % (Auto) [place] % (Auto) Eos % (Auto) Lymph # (Auto) [place] # (Auto) Eos # (Auto) Seg Neutrophils % Seg Neuts % (Manual) Lymphocytes % (Manual) Monocytes % (Manual) Seg Neutrophils # Seg Neutrophils # Man Lymphocytes # (Manual) Monocytes # (Manual) PT INR ABG pH POC ABG pCO2 POC ABG pO2 ABG pO2 ABG HCO3 ABG O2 Saturation ABG Base Excess ABG Hemoglobin ABG Oxyhemoglobin ABG Sodium ABG Potassium ABG Chloride ABG Glucose Oxyhemoglobin Sodium Potassium Chloride Carbon Dioxide BUN Creatinine Glucose POC Glucose 133 H 124 H 122 H Lactic Acid Calcium Phosphorus Magnesium Total Bilirubin AST ALT Alkaline Phosphatase Total Protein Albumin Triglycerides Arterial Blood Glucose Arterial Blood Ionized Calcium Digoxin Crossmatch 01/22/21 01/22/21 01/22/21 04:00 06:09 11:36 WBC RBC Hgb Hct MCV MCHC RDW Plt Count Lymph % (Auto) [place] % (Auto) Eos % (Auto) Lymph # (Auto) [place] # (Auto) Eos # (Auto) Seg Neutrophils % Seg Neuts % (Manual) Lymphocytes % (Manual) Monocytes % (Manual) Seg Neutrophils # Seg Neutrophils # Man Lymphocytes # (Manual) Monocytes # (Manual) PT INR ABG pH POC ABG pCO2 POC ABG pO2 ABG pO2 ABG HCO3 ABG O2 Saturation ABG Base Excess ABG Hemoglobin ABG Oxyhemoglobin ABG Sodium ABG Potassium ABG Chloride ABG Glucose Oxyhemoglobin Sodium Potassium Chloride Carbon Dioxide BUN 65 H Creatinine 8.2 H D Glucose 111 H POC Glucose 122 H 132 H Lactic Acid Calcium Phosphorus Magnesium Total Bilirubin AST ALT Alkaline Phosphatase Total Protein Albumin Triglycerides Arterial Blood Glucose Arterial Blood Ionized Calcium Digoxin Crossmatch 01/22/21 01/22/21 01/23/21 17:17 23:18 05:29 WBC RBC Hgb Hct MCV MCHC RDW Plt Count Lymph % (Auto) [place] % (Auto) Eos % (Auto) Lymph # (Auto) [place] # (Auto) Eos # (Auto) Seg Neutrophils % Seg Neuts % (Manual) Lymphocytes % (Manual) Monocytes % (Manual) Seg Neutrophils # Seg Neutrophils # Man Lymphocytes # (Manual) Monocytes # (Manual) PT INR ABG pH POC ABG pCO2 POC ABG pO2 ABG pO2 ABG HCO3 ABG O2 Saturation ABG Base Excess ABG Hemoglobin ABG Oxyhemoglobin ABG Sodium ABG Potassium ABG Chloride ABG Glucose Oxyhemoglobin Sodium Potassium Chloride Carbon Dioxide BUN Creatinine Glucose POC Glucose 135 H 128 H 129 H Lactic Acid Calcium Phosphorus Magnesium Total Bilirubin AST ALT Alkaline Phosphatase Total Protein Albumin Triglycerides Arterial Blood Glucose Arterial Blood Ionized Calcium Digoxin Crossmatch 01/23/21 01/23/21 01/23/21 05:45 11:28 16:39 WBC RBC Hgb Hct MCV MCHC RDW Plt Count Lymph % (Auto) [place] % (Auto) Eos % (Auto) Lymph # (Auto) [place] # (Auto) Eos # (Auto) Seg Neutrophils % Seg Neuts % (Manual) Lymphocytes % (Manual) Monocytes % (Manual) Seg Neutrophils # Seg Neutrophils # Man Lymphocytes # (Manual) Monocytes # (Manual) PT INR ABG pH POC ABG pCO2 POC ABG pO2 ABG pO2 ABG HCO3 ABG O2 Saturation ABG Base Excess ABG Hemoglobin ABG Oxyhemoglobin ABG Sodium ABG Potassium ABG Chloride ABG Glucose Oxyhemoglobin Sodium Potassium Chloride Carbon Dioxide BUN 96 H Creatinine 10.8 H Glucose 124 H POC Glucose 160 H 116 H Lactic Acid Calcium Phosphorus Magnesium 2.50 H Total Bilirubin AST ALT Alkaline Phosphatase Total Protein Albumin Triglycerides Arterial Blood Glucose Arterial Blood Ionized Calcium Digoxin Crossmatch 01/24/21 01/24/21 01/24/21 00:02 04:45 05:01 WBC RBC Hgb Hct MCV MCHC RDW Plt Count Lymph % (Auto) [place] % (Auto) Eos % (Auto) Lymph # (Auto) [place] # (Auto) Eos # (Auto) Seg Neutrophils % Seg Neuts % (Manual) Lymphocytes % (Manual) Monocytes % (Manual) Seg Neutrophils # Seg Neutrophils # Man Lymphocytes # (Manual) Monocytes # (Manual) PT INR ABG pH POC ABG pCO2 POC ABG pO2 ABG pO2 ABG HCO3 ABG O2 Saturation ABG Base Excess ABG Hemoglobin ABG Oxyhemoglobin ABG Sodium ABG Potassium ABG Chloride ABG Glucose Oxyhemoglobin Sodium Potassium 3.5 L Chloride Carbon Dioxide BUN 56 H Creatinine 7.7 H Glucose 102 H POC Glucose 120 H 108 H Lactic Acid Calcium Phosphorus Magnesium Total Bilirubin AST ALT Alkaline Phosphatase Total Protein Albumin Triglycerides Arterial Blood Glucose Arterial Blood Ionized Calcium Digoxin Crossmatch 01/24/21 01/24/21 01/24/21 12:03 17:07 23:55 WBC RBC Hgb Hct MCV MCHC RDW Plt Count Lymph % (Auto) [place] % (Auto) Eos % (Auto) Lymph # (Auto) [place] # (Auto) Eos # (Auto) Seg Neutrophils % Seg Neuts % (Manual) Lymphocytes % (Manual) Monocytes % (Manual) Seg Neutrophils # Seg Neutrophils # Man Lymphocytes # (Manual) Monocytes # (Manual) PT INR ABG pH POC ABG pCO2 POC ABG pO2 ABG pO2 ABG HCO3 ABG O2 Saturation ABG Base Excess ABG Hemoglobin ABG Oxyhemoglobin ABG Sodium ABG Potassium ABG Chloride ABG Glucose Oxyhemoglobin Sodium Potassium Chloride Carbon Dioxide BUN Creatinine Glucose POC Glucose 136 H 122 H 112 H Lactic Acid Calcium Phosphorus Magnesium Total Bilirubin AST ALT Alkaline Phosphatase Total Protein Albumin Triglycerides Arterial Blood Glucose Arterial Blood Ionized Calcium Digoxin Crossmatch 01/25/21 01/25/21 01/25/21 05:15 06:00 07:47 WBC RBC Hgb Hct MCV MCHC RDW Plt Count Lymph % (Auto) [place] % (Auto) Eos % (Auto) Lymph # (Auto) [place] # (Auto) Eos # (Auto) Seg Neutrophils % Seg Neuts % (Manual) Lymphocytes % (Manual) Monocytes % (Manual) Seg Neutrophils # Seg Neutrophils # Man Lymphocytes # (Manual) Monocytes # (Manual) PT INR ABG pH POC ABG pCO2 POC ABG pO2 ABG pO2 ABG HCO3 ABG O2 Saturation ABG Base Excess ABG Hemoglobin ABG Oxyhemoglobin ABG Sodium ABG Potassium ABG Chloride ABG Glucose Oxyhemoglobin Sodium 116 L* D Potassium Chloride 79.1 L Carbon Dioxide 17 L D BUN 72 H Creatinine 7.4 H Glucose 2242 H* POC Glucose 117 H 138 H Lactic Acid Calcium 6.7 L D Phosphorus Magnesium Total Bilirubin AST ALT Alkaline Phosphatase Total Protein Albumin Triglycerides Arterial Blood Glucose Arterial Blood Ionized Calcium Digoxin Crossmatch 01/25/21 01/25/21 01/25/21 08:35 11:49 18:42 WBC RBC Hgb Hct MCV MCHC RDW Plt Count Lymph % (Auto) [place] % (Auto) Eos % (Auto) Lymph # (Auto) [place] # (Auto) Eos # (Auto) Seg Neutrophils % Seg Neuts % (Manual) Lymphocytes % (Manual) Monocytes % (Manual) Seg Neutrophils # Seg Neutrophils # Man Lymphocytes # (Manual) Monocytes # (Manual) PT INR ABG pH POC ABG pCO2 POC ABG pO2 ABG pO2 ABG HCO3 ABG O2 Saturation ABG Base Excess ABG Hemoglobin ABG Oxyhemoglobin ABG Sodium ABG Potassium ABG Chloride ABG Glucose Oxyhemoglobin Sodium Potassium Chloride 97.0 L Carbon Dioxide BUN 92 H Creatinine 11.0 H Glucose 125 H POC Glucose 130 H 122 H Lactic Acid Calcium Phosphorus Magnesium Total Bilirubin AST ALT Alkaline Phosphatase Total Protein Albumin Triglycerides Arterial Blood Glucose Arterial Blood Ionized Calcium Digoxin Crossmatch 01/25/21 01/26/21 01/26/21 23:37 04:19 05:48 WBC RBC Hgb Hct MCV MCHC RDW Plt Count Lymph % (Auto) [place] % (Auto) Eos % (Auto) Lymph # (Auto) [place] # (Auto) Eos # (Auto) Seg Neutrophils % Seg Neuts % (Manual) Lymphocytes % (Manual) Monocytes % (Manual) Seg Neutrophils # Seg Neutrophils # Man Lymphocytes # (Manual) Monocytes # (Manual) PT INR ABG pH POC ABG pCO2 POC ABG pO2 ABG pO2 ABG HCO3 ABG O2 Saturation ABG Base Excess ABG Hemoglobin ABG Oxyhemoglobin ABG Sodium ABG Potassium ABG Chloride ABG Glucose Oxyhemoglobin Sodium Potassium Chloride Carbon Dioxide BUN 49 H Creatinine 7.1 H Glucose POC Glucose 144 H 125 H Lactic Acid Calcium Phosphorus Magnesium 1.50 L Total Bilirubin AST ALT Alkaline Phosphatase Total Protein Albumin Triglycerides Arterial Blood Glucose Arterial Blood Ionized Calcium Digoxin Crossmatch 01/26/21 01/26/21 01/27/21 11:16 18:35 00:01 WBC RBC Hgb Hct MCV MCHC RDW Plt Count Lymph % (Auto) [place] % (Auto) Eos % (Auto) Lymph # (Auto) [place] # (Auto) Eos # (Auto) Seg Neutrophils % Seg Neuts % (Manual) Lymphocytes % (Manual) Monocytes % (Manual) Seg Neutrophils # Seg Neutrophils # Man Lymphocytes # (Manual) Monocytes # (Manual) PT INR ABG pH POC ABG pCO2 POC ABG pO2 ABG pO2 ABG HCO3 ABG O2 Saturation ABG Base Excess ABG Hemoglobin ABG Oxyhemoglobin ABG Sodium ABG Potassium ABG Chloride ABG Glucose Oxyhemoglobin Sodium Potassium Chloride Carbon Dioxide BUN Creatinine Glucose POC Glucose 122 H 127 H 130 H Lactic Acid Calcium Phosphorus Magnesium Total Bilirubin AST ALT Alkaline Phosphatase Total Protein Albumin Triglycerides Arterial Blood Glucose Arterial Blood Ionized Calcium Digoxin Crossmatch 01/27/21 01/27/21 01/27/21 04:19 04:19 05:25 WBC 12.4 H RBC 2.79 L Hgb 8.6 L Hct 25.1 L MCV MCHC RDW 16.1 H Plt Count Lymph % (Auto) 7.5 L [place] % (Auto) 9.3 H Eos % (Auto) 4.8 H Lymph # (Auto) 0.9 L [place] # (Auto) 1.1 H Eos # (Auto) 0.6 H Seg Neutrophils % 78.0 H Seg Neuts % (Manual) Lymphocytes % (Manual) Monocytes % (Manual) Seg Neutrophils # 9.7 H Seg Neutrophils # Man Lymphocytes # (Manual) Monocytes # (Manual) PT INR ABG pH POC ABG pCO2 POC ABG pO2 ABG pO2 ABG HCO3 ABG O2 Saturation ABG Base Excess ABG Hemoglobin ABG Oxyhemoglobin ABG Sodium ABG Potassium ABG Chloride ABG Glucose Oxyhemoglobin Sodium Potassium Chloride 97.9 L Carbon Dioxide BUN 76 H Creatinine 9.9 H Glucose 111 H POC Glucose 129 H Lactic Acid Calcium Phosphorus Magnesium Total Bilirubin AST ALT Alkaline Phosphatase Total Protein Albumin Triglycerides Arterial Blood Glucose Arterial Blood Ionized Calcium Digoxin Crossmatch 01/27/21 01/27/21 01/27/21 11:30 17:08 23:28 WBC RBC Hgb Hct MCV MCHC RDW Plt Count Lymph % (Auto) [place] % (Auto) Eos % (Auto) Lymph # (Auto) [place] # (Auto) Eos # (Auto) Seg Neutrophils % Seg Neuts % (Manual) Lymphocytes % (Manual) Monocytes % (Manual) Seg Neutrophils # Seg Neutrophils # Man Lymphocytes # (Manual) Monocytes # (Manual) PT INR ABG pH POC ABG pCO2 POC ABG pO2 ABG pO2 ABG HCO3 ABG O2 Saturation ABG Base Excess ABG Hemoglobin ABG Oxyhemoglobin ABG Sodium ABG Potassium ABG Chloride ABG Glucose Oxyhemoglobin Sodium Potassium Chloride Carbon Dioxide BUN Creatinine Glucose POC Glucose 128 H 158 H 114 H Lactic Acid Calcium Phosphorus Magnesium Total Bilirubin AST ALT Alkaline Phosphatase Total Protein Albumin Triglycerides Arterial Blood Glucose Arterial Blood Ionized Calcium Digoxin Crossmatch 01/28/21 01/28/21 01/28/21 05:17 11:27 18:01 WBC RBC Hgb Hct MCV MCHC RDW Plt Count Lymph % (Auto) [place] % (Auto) Eos % (Auto) Lymph # (Auto) [place] # (Auto) Eos # (Auto) Seg Neutrophils % Seg Neuts % (Manual) Lymphocytes % (Manual) Monocytes % (Manual) Seg Neutrophils # Seg Neutrophils # Man Lymphocytes # (Manual) Monocytes # (Manual) PT INR ABG pH POC ABG pCO2 POC ABG pO2 ABG pO2 ABG HCO3 ABG O2 Saturation ABG Base Excess ABG Hemoglobin ABG Oxyhemoglobin ABG Sodium ABG Potassium ABG Chloride ABG Glucose Oxyhemoglobin Sodium Potassium Chloride Carbon Dioxide BUN Creatinine Glucose POC Glucose 113 H 134 H 111 H Lactic Acid Calcium Phosphorus Magnesium Total Bilirubin AST ALT Alkaline Phosphatase Total Protein Albumin Triglycerides Arterial Blood Glucose Arterial Blood Ionized Calcium Digoxin Crossmatch 01/29/21 01/29/21 01/29/21 04:54 06:45 11:10 WBC RBC Hgb Hct MCV MCHC RDW Plt Count Lymph % (Auto) [place] % (Auto) Eos % (Auto) Lymph # (Auto) [place] # (Auto) Eos # (Auto) Seg Neutrophils % Seg Neuts % (Manual) Lymphocytes % (Manual) Monocytes % (Manual) Seg Neutrophils # Seg Neutrophils # Man Lymphocytes # (Manual) Monocytes # (Manual) PT INR ABG pH POC ABG pCO2 POC ABG pO2 ABG pO2 ABG HCO3 ABG O2 Saturation ABG Base Excess ABG Hemoglobin ABG Oxyhemoglobin ABG Sodium ABG Potassium ABG Chloride ABG Glucose Oxyhemoglobin Sodium Potassium 3.4 L Chloride Carbon Dioxide BUN 51 H Creatinine 6.9 H Glucose 120 H POC Glucose 111 H 106 H Lactic Acid Calcium Phosphorus 2.10 L Magnesium Total Bilirubin AST ALT Alkaline Phosphatase 182 H Total Protein 6.0 L Albumin 2.9 L Triglycerides Arterial Blood Glucose Arterial Blood Ionized Calcium Digoxin Crossmatch 01/29/21 01/30/21 01/30/21 16:47 04:15 06:55 WBC RBC Hgb Hct MCV MCHC RDW Plt Count Lymph % (Auto) [place] % (Auto) Eos % (Auto) Lymph # (Auto) [place] # (Auto) Eos # (Auto) Seg Neutrophils % Seg Neuts % (Manual) Lymphocytes % (Manual) Monocytes % (Manual) Seg Neutrophils # Seg Neutrophils # Man Lymphocytes # (Manual) Monocytes # (Manual) PT INR ABG pH POC ABG pCO2 POC ABG pO2 ABG pO2 ABG HCO3 ABG O2 Saturation ABG Base Excess ABG Hemoglobin ABG Oxyhemoglobin ABG Sodium ABG Potassium ABG Chloride ABG Glucose Oxyhemoglobin Sodium Potassium Chloride Carbon Dioxide BUN 73 H Creatinine 9.2 H Glucose 119 H POC Glucose 110 H 126 H Lactic Acid Calcium Phosphorus 4.70 H D Magnesium Total Bilirubin AST ALT Alkaline Phosphatase Total Protein Albumin Triglycerides Arterial Blood Glucose Arterial Blood Ionized Calcium Digoxin Crossmatch 01/30/21 01/31/21 01/31/21 18:25 00:51 07:15 WBC RBC Hgb Hct MCV MCHC RDW Plt Count Lymph % (Auto) [place] % (Auto) Eos % (Auto) Lymph # (Auto) [place] # (Auto) Eos # (Auto) Seg Neutrophils % Seg Neuts % (Manual) Lymphocytes % (Manual) Monocytes % (Manual) Seg Neutrophils # Seg Neutrophils # Man Lymphocytes # (Manual) Monocytes # (Manual) PT INR ABG pH POC ABG pCO2 POC ABG pO2 ABG pO2 ABG HCO3 ABG O2 Saturation ABG Base Excess ABG Hemoglobin ABG Oxyhemoglobin ABG Sodium ABG Potassium ABG Chloride ABG Glucose Oxyhemoglobin Sodium Potassium Chloride Carbon Dioxide BUN Creatinine Glucose POC Glucose 117 H 134 H 134 H Lactic Acid Calcium Phosphorus Magnesium Total Bilirubin AST ALT Alkaline Phosphatase Total Protein Albumin Triglycerides Arterial Blood Glucose Arterial Blood Ionized Calcium Digoxin Crossmatch 01/31/21 01/31/21 02/01/21 11:45 23:15 05:51 WBC RBC Hgb Hct MCV MCHC RDW Plt Count Lymph % (Auto) [place] % (Auto) Eos % (Auto) Lymph # (Auto) [place] # (Auto) Eos # (Auto) Seg Neutrophils % Seg Neuts % (Manual) Lymphocytes % (Manual) Monocytes % (Manual) Seg Neutrophils # Seg Neutrophils # Man Lymphocytes # (Manual) Monocytes # (Manual) PT INR ABG pH POC ABG pCO2 POC ABG pO2 ABG pO2 ABG HCO3 ABG O2 Saturation ABG Base Excess ABG Hemoglobin ABG Oxyhemoglobin ABG Sodium ABG Potassium ABG Chloride ABG Glucose Oxyhemoglobin Sodium Potassium Chloride Carbon Dioxide BUN Creatinine Glucose POC Glucose 119 H 120 H 125 H Lactic Acid Calcium Phosphorus Magnesium Total Bilirubin AST ALT Alkaline Phosphatase Total Protein Albumin Triglycerides Arterial Blood Glucose Arterial Blood Ionized Calcium Digoxin Crossmatch 02/01/21 02/02/21 02/02/21 22:05 03:25 06:16 WBC RBC Hgb Hct MCV MCHC RDW Plt Count Lymph % (Auto) [place] % (Auto) Eos % (Auto) Lymph # (Auto) [place] # (Auto) Eos # (Auto) Seg Neutrophils % Seg Neuts % (Manual) Lymphocytes % (Manual) Monocytes % (Manual) Seg Neutrophils # Seg Neutrophils # Man Lymphocytes # (Manual) Monocytes # (Manual) PT INR ABG pH POC ABG pCO2 POC ABG pO2 ABG pO2 ABG HCO3 ABG O2 Saturation ABG Base Excess ABG Hemoglobin ABG Oxyhemoglobin ABG Sodium ABG Potassium ABG Chloride ABG Glucose Oxyhemoglobin Sodium Potassium 3.3 L Chloride Carbon Dioxide BUN 38 H Creatinine 5.8 H Glucose 115 H POC Glucose 118 H 130 H Lactic Acid Calcium Phosphorus 1.80 L Magnesium 1.60 L Total Bilirubin AST ALT Alkaline Phosphatase Total Protein Albumin Triglycerides Arterial Blood Glucose Arterial Blood Ionized Calcium Digoxin Crossmatch 02/02/21 02/02/2102/03/21 17:29 21:53 04:50 WBC RBC Hgb Hct MCV MCHC RDW Plt Count Lymph % (Auto) [place] % (Auto) Eos % (Auto) Lymph # (Auto) [place] # (Auto) Eos # (Auto) Seg Neutrophils % Seg Neuts % (Manual) Lymphocytes % (Manual) Monocytes % (Manual) Seg Neutrophils # Seg Neutrophils # Man Lymphocytes # (Manual) Monocytes # (Manual) PT INR ABG pH POC ABG pCO2 POC ABG pO2 ABG pO2 ABG HCO3 ABG O2 Saturation ABG Base Excess ABG Hemoglobin ABG Oxyhemoglobin ABG Sodium ABG Potassium ABG Chloride ABG Glucose Oxyhemoglobin Sodium Potassium Chloride Carbon Dioxide BUN Creatinine Glucose POC Glucose 115 H 120 H Lactic Acid Calcium Phosphorus Magnesium 1.60 L Total Bilirubin AST ALT Alkaline Phosphatase Total Protein Albumin Triglycerides Arterial Blood Glucose Arterial Blood Ionized Calcium Digoxin Crossmatch 02/03/21 02/03/21 02/03/21 06:12 18:25 23:47 WBC RBC Hgb Hct MCV MCHC RDW Plt Count Lymph % (Auto) [place] % (Auto) Eos % (Auto) Lymph # (Auto) [place] # (Auto) Eos # (Auto) Seg Neutrophils % Seg Neuts % (Manual) Lymphocytes % (Manual) Monocytes % (Manual) Seg Neutrophils # Seg Neutrophils # Man Lymphocytes # (Manual) Monocytes # (Manual) PT INR ABG pH POC ABG pCO2 POC ABG pO2 ABG pO2 ABG HCO3 ABG O2 Saturation ABG Base Excess ABG Hemoglobin ABG Oxyhemoglobin ABG Sodium ABG Potassium ABG Chloride ABG Glucose Oxyhemoglobin Sodium Potassium Chloride Carbon Dioxide BUN Creatinine Glucose POC Glucose 112 H 112 H 131 H Lactic Acid Calcium Phosphorus Magnesium Total Bilirubin AST ALT Alkaline Phosphatase Total Protein Albumin Triglycerides Arterial Blood Glucose Arterial Blood Ionized Calcium Digoxin Crossmatch 02/04/21 02/04/21 02/04/21 05:40 09:37 12:03 WBC RBC Hgb Hct MCV MCHC RDW Plt Count Lymph % (Auto) [place] % (Auto) Eos % (Auto) Lymph # (Auto) [place] # (Auto) Eos # (Auto) Seg Neutrophils % Seg Neuts % (Manual) Lymphocytes % (Manual) Monocytes % (Manual) Seg Neutrophils # Seg Neutrophils # Man Lymphocytes # (Manual) Monocytes # (Manual) PT INR ABG pH POC ABG pCO2 POC ABG pO2 ABG pO2 ABG HCO3 ABG O2 Saturation ABG Base Excess ABG Hemoglobin ABG Oxyhemoglobin ABG Sodium ABG Potassium ABG Chloride ABG Glucose Oxyhemoglobin Sodium 131 L D 135 L Potassium 3.0 L 3.1 L Chloride 93.4 L 96.7 L Carbon Dioxide BUN 46 H 52 H Creatinine 6.5 H 7.3 H Glucose 363 H 128 H POC Glucose 129 H Lactic Acid Calcium Phosphorus 2.40 L Magnesium 1.50 L 1.60 L Total Bilirubin AST ALT Alkaline Phosphatase Total Protein Albumin Triglycerides Arterial Blood Glucose Arterial Blood Ionized Calcium Digoxin Crossmatch 02/04/21 02/04/21 02/05/21 17:25 21:38 05:19 WBC RBC Hgb Hct MCV MCHC RDW Plt Count Lymph % (Auto) [place] % (Auto) Eos % (Auto) Lymph # (Auto) [place] # (Auto) Eos # (Auto) Seg Neutrophils % Seg Neuts % (Manual) Lymphocytes % (Manual) Monocytes % (Manual) Seg Neutrophils # Seg Neutrophils # Man Lymphocytes # (Manual) Monocytes # (Manual) PT INR ABG pH POC ABG pCO2 POC ABG pO2 ABG pO2 ABG HCO3 ABG O2 Saturation ABG Base Excess ABG Hemoglobin ABG Oxyhemoglobin ABG Sodium ABG Potassium ABG Chloride ABG Glucose Oxyhemoglobin Sodium Potassium Chloride Carbon Dioxide BUN Creatinine Glucose POC Glucose 132 H 108 H 116 H Lactic Acid Calcium Phosphorus Magnesium Total Bilirubin AST ALT Alkaline Phosphatase Total Protein Albumin Triglycerides Arterial Blood Glucose Arterial Blood Ionized Calcium Digoxin Crossmatch 02/05/21 02/05/21 02/05/21 06:30 11:25 16:20 WBC RBC Hgb Hct MCV MCHC RDW Plt Count Lymph % (Auto) [place] % (Auto) Eos % (Auto) Lymph # (Auto) [place] # (Auto) Eos # (Auto) Seg Neutrophils % Seg Neuts % (Manual) Lymphocytes % (Manual) Monocytes % (Manual) Seg Neutrophils # Seg Neutrophils # Man Lymphocytes # (Manual) Monocytes # (Manual) PT INR ABG pH POC ABG pCO2 POC ABG pO2 ABG pO2 ABG HCO3 ABG O2 Saturation ABG Base Excess ABG Hemoglobin ABG Oxyhemoglobin ABG Sodium ABG Potassium ABG Chloride ABG Glucose Oxyhemoglobin Sodium Potassium 3.2 L Chloride 96.5 L Carbon Dioxide BUN 76 H Creatinine 9.6 H Glucose 112 H POC Glucose 118 H 123 H Lactic Acid Calcium Phosphorus Magnesium 1.50 L Total Bilirubin AST ALT Alkaline Phosphatase 177 H Total Protein 6.0 L Albumin 2.9 L Triglycerides Arterial Blood Glucose Arterial Blood Ionized Calcium Digoxin Crossmatch 02/06/21 02/06/21 02/06/21 05:42 06:42 08:18 WBC RBC Hgb Hct MCV MCHC RDW Plt Count Lymph % (Auto) [place] % (Auto) Eos % (Auto) Lymph # (Auto) [place] # (Auto) Eos # (Auto) Seg Neutrophils % Seg Neuts % (Manual) Lymphocytes % (Manual) Monocytes % (Manual) Seg Neutrophils # Seg Neutrophils # Man Lymphocytes # (Manual) Monocytes # (Manual) PT INR ABG pH POC ABG pCO2 POC ABG pO2 ABG pO2 ABG HCO3 ABG O2 Saturation ABG Base Excess ABG Hemoglobin ABG Oxyhemoglobin ABG Sodium ABG Potassium ABG Chloride ABG Glucose Oxyhemoglobin Sodium 133 L Potassium Chloride 92.7 L Carbon Dioxide 19 L BUN 100 H Creatinine 11.9 H Glucose 114 H POC Glucose 118 H 114 H Lactic Acid Calcium Phosphorus 4.70 H Magnesium 1.60 L Total Bilirubin AST ALT Alkaline Phosphatase Total Protein Albumin Triglycerides Arterial Blood Glucose Arterial Blood Ionized Calcium Digoxin Crossmatch 02/06/21 02/07/21 02/07/21 23:22 04:35 04:35 WBC RBC 2.52 L Hgb 8.0 L Hct 22.5 L MCV MCHC 36 H RDW 16.7 H Plt Count Lymph % (Auto) 12.7 L [place] % (Auto) 10.2 H Eos % (Auto) 5.0 H Lymph # (Auto) [place] # (Auto) 1.0 H Eos # (Auto) 0.5 H Seg Neutrophils % 71.6 H Seg Neuts % (Manual) Lymphocytes % (Manual) Monocytes % (Manual) Seg Neutrophils # Seg Neutrophils # Man Lymphocytes # (Manual) Monocytes # (Manual) PT INR ABG pH POC ABG pCO2 POC ABG pO2 ABG pO2 ABG HCO3 ABG O2 Saturation ABG Base Excess ABG Hemoglobin ABG Oxyhemoglobin ABG Sodium ABG Potassium ABG Chloride ABG Glucose Oxyhemoglobin Sodium 135 L Potassium 3.4 L Chloride 95.5 L Carbon Dioxide BUN 59 H Creatinine 8.5 H Glucose POC Glucose 117 H Lactic Acid Calcium Phosphorus Magnesium Total Bilirubin AST ALT Alkaline Phosphatase Total Protein Albumin Triglycerides Arterial Blood Glucose Arterial Blood Ionized Calcium Digoxin Crossmatch 02/07/21 02/07/21 02/07/21 04:35 11:31 22:49 WBC RBC Hgb Hct MCV MCHC RDW Plt Count Lymph % (Auto) [place] % (Auto) Eos % (Auto) Lymph # (Auto) [place] # (Auto) Eos # (Auto) Seg Neutrophils % Seg Neuts % (Manual) Lymphocytes % (Manual) Monocytes % (Manual) Seg Neutrophils # Seg Neutrophils # Man Lymphocytes # (Manual) Monocytes # (Manual) PT INR ABG pH POC ABG pCO2 POC ABG pO2 ABG pO2 ABG HCO3 ABG O2 Saturation ABG Base Excess ABG Hemoglobin ABG Oxyhemoglobin ABG Sodium ABG Potassium ABG Chloride ABG Glucose Oxyhemoglobin Sodium Potassium Chloride Carbon Dioxide BUN Creatinine Glucose POC Glucose 117 H 122 H Lactic Acid Calcium Phosphorus Magnesium 1.60 L Total Bilirubin AST ALT Alkaline Phosphatase Total Protein Albumin Triglycerides Arterial Blood Glucose Arterial Blood Ionized Calcium Digoxin Crossmatch 02/08/21 02/08/21 04:56 06:45 WBC RBC Hgb Hct MCV MCHC RDW Plt Count Lymph % (Auto) [place] % (Auto) Eos % (Auto) Lymph # (Auto) [place] # (Auto) Eos # (Auto) Seg Neutrophils % Seg Neuts % (Manual) Lymphocytes % (Manual) Monocytes % (Manual) Seg Neutrophils # Seg Neutrophils # Man Lymphocytes # (Manual) Monocytes # (Manual) PT INR ABG pH POC ABG pCO2 POC ABG pO2 ABG pO2 ABG HCO3 ABG O2 Saturation ABG Base Excess ABG Hemoglobin ABG Oxyhemoglobin ABG Sodium ABG Potassium ABG Chloride ABG Glucose Oxyhemoglobin Sodium 134 L Potassium 3.5 L Chloride 94.2 L Carbon Dioxide BUN 78 H Creatinine 11.4 H Glucose 101 H POC Glucose 113 H Lactic Acid Calcium Phosphorus Magnesium Total Bilirubin AST ALT Alkaline Phosphatase Total Protein Albumin Triglycerides Arterial Blood Glucose Arterial Blood Ionized Calcium Digoxin Crossmatch Allied health notes reviewed: nursing
--- NOTE | 2021-02-08 15:58 | Progress Note ---
Assessment and Plan POD#46 s/p ex lap with extensive lysis of adhesions and two small bowel resections with primary anastamosis for SBO with necrotic segment small bowel. POD#37 s/p ex lap, resection of perforated anastamosis, washout and abthera wound vac placement. POD#35 s/p ex lap with right hemicolectomy. POD#33 s/p ex lap, with jejunal-colonic anastamosis and closure of abdomen. Afebrile and stable. - concerned about a leak at his anastamosis. Clinically improved with decreased output that is becoming more serous. 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 Continue HARIS drain suction. HARIS drain must be secured and kept in place. Since HARIS drain has continued to stay about 10ml over the last several days, will continue lower dose of octreotide. Patient will need to be on TPN for the foreseeable future due to inability to use his GI tract to the point of getting adequate nutrition from oral diet at this time. continue g-tube to drainage for decompression. continue clear liquids and closely monitor HARIS drain output. I spoke to case management yesterday. They are sending patient's chart to LTAC facilities to review for possible transfer. Subjective Date of service: 02/08/21 Narrative: no acute events overnight. pt says he continues to have diarrhea. denies pain, nausea or vomiting. Objective Vital Signs - 12hr 02/08/21 02/08/21 02/08/21 04:52 06:26 06:27 Temperature 98.8 F Pulse Rate 71 71 71 Respiratory 18 Rate Blood Pressure 129/63 129/63 129/63 O2 Sat by Pulse 97 Oximetry 02/08/21 02/08/21 02/08/21 07:08 08:45 08:46 Temperature 98.7 F Pulse Rate 85 85 85 Respiratory 16 Rate Blood Pressure 139/63 139/63 139/63 O2 Sat by Pulse 96 Oximetry 02/08/21 02/08/21 02/08/21 09:10 09:15 09:30 Temperature 98.7 F Pulse Rate 77 76 87 Respiratory 18 Rate Blood Pressure 170/84 179/95 141/77 O2 Sat by Pulse Oximetry 02/08/21 02/08/21 02/08/21 09:45 10:00 10:15 Temperature Pulse Rate 85 93 H 86 Respiratory Rate Blood Pressure 165/74 151/79 156/81 O2 Sat by Pulse Oximetry 02/08/21 02/08/21 02/08/21 10:30 10:45 11:00 Temperature Pulse Rate 68 84 85 Respiratory Rate Blood Pressure 159/88 166/82 157/72 O2 Sat by Pulse Oximetry 02/08/21 02/08/21 02/08/21 11:15 11:30 11:45 Temperature Pulse Rate 68 92 H 88 Respiratory Rate Blood Pressure 155/71 143/69 144/55 O2 Sat by Pulse Oximetry 02/08/21 02/08/21 02/08/21 12:00 12:15 12:30 Temperature Pulse Rate 97 H 89 91 H Respiratory Rate Blood Pressure 149/67 141/65 142/77 O2 Sat by Pulse Oximetry 02/08/21 02/08/21 02/08/21 12:45 13:00 13:15 Temperature Pulse Rate 92 H 92 H 58 L Respiratory Rate Blood Pressure 148/70 125/69 134/70 O2 Sat by Pulse Oximetry 02/08/21 13:30 Temperature 98.6 F Pulse Rate 65 Respiratory 18 Rate Blood Pressure 133/65 O2 Sat by Pulse Oximetry - General physical appearance well developed, no distress, no pain, chronically ill - Respiratory normal expansion, normal respiratory effort - Abdomen soft, not tender, other (HARIS drain 8ml last 24 hours, brown. G-tube bilious. ) - Labs 02/07/21 04:35 02/08/21 06:45 Diabetes panel 02/08/21 Range/Units 06:45 Sodium 134 L (137-145) mmol/L Potassium 3.5 L (3.6-5.0) mmol/L Chloride 94.2 L (98-107) mmol/L Carbon Dioxide 25 (22-30) mmol/L BUN 78 H (9-20) mg/dL Creatinine 11.4 H (0.8-1.3) mg/dL Glucose 101 H (75-100) mg/dL Calcium 9.0 (8.4-10.2) mg/dL Calcium panel 02/08/21 Range/Units 06:45 Calcium 9.0 (8.4-10.2) mg/dL Phosphorus 3.20 (2.5-4.5) mg/dL Pituitary panel 02/08/21 Range/Units 06:45 Sodium 134 L (137-145) mmol/L Potassium 3.5 L (3.6-5.0) mmol/L Chloride 94.2 L (98-107) mmol/L Carbon Dioxide 25 (22-30) mmol/L BUN 78 H (9-20) mg/dL Creatinine 11.4 H (0.8-1.3) mg/dL Glucose 101 H (75-100) mg/dL Calcium 9.0 (8.4-10.2) mg/dL Adrenal panel 02/08/21 Range/Units 06:45 Sodium 134 L (137-145) mmol/L Potassium 3.5 L (3.6-5.0) mmol/L Chloride 94.2 L (98-107) mmol/L Carbon Dioxide 25 (22-30) mmol/L BUN 78 H (9-20) mg/dL Creatinine 11.4 H (0.8-1.3) mg/dL Glucose 101 H (75-100) mg/dL Calcium 9.0 (8.4-10.2) mg/dL
[2021-02-08] MEDS ORDERED: TOTAL PARENTERAL NUTRITION 2,016 ML IV SCH (20:00)
[2021-02-08] MEDS ORDERED: FAT EMULSIONS 20% 250 ML IV SCH (20:00)
[2021-02-08] MEDS: INSULIN GLARGINE 100 UNITS/ML SUB-Q SCH (22:46)
[2021-02-09] MEDS: INSULIN LISPRO 100 UNIT/ML SUB-Q SCH ×4 (02:50→17:59)
[2021-02-09] MEDS: DIPHENOXYLATE/ATROPINE TAB PO SCH ×5 (04:40→17:04)
[2021-02-09] MEDS: HYDROmorphone 1 MG/1 ML INJ IV PRN (05:04)
[2021-02-09] MEDS: hydrALAZINE 20 MG/1 ML INJ IV SCH ×6 (05:06→21:56)
[2021-02-09] MEDS: METOPROLOL TARTRATE 5 MG/5 ML INJ IV SCH ×6 (05:09→21:57)
[2021-02-09 08:22] LABS: Calcium 8.7 mg/dL (8.4-10.2)
--- NOTE | 2021-02-09 08:59 | Progress Note ---
Assessment and Plan Assessment and plan: Severe Sepsis with shock Streptococcus bovis bacteremia/Prevotella bacteremia Gwendolyn albicans tracheal aspirate Small bowel obstruction/necrotic bowel s/p ex lap with extensive lysis of adhesions, 2 small bowel resections with primary anastomosis, right hemicolectomy, jejunal colonic anastomosis, segmental small bowel resection Postoperative ileus Atrial fibrillation with RVR Leukocytosis Hypochloremia Gwendolyn albicans in tracheal aspirate from 12/24 ESRD on PD, PermCath to be placed Transaminitis Systolic CHF(EF 35%) Crohn's disease Hypertension Hypokalemia and hypophosphatemia -[facility], surgery, infectious disease, nephrology, vascular surgery, cardiology consulted, appreciate recommendations -12/24 S/p ex lap with extensive expectations, 2 small bowel resections with primary anastomosis with surgery on 12/23 -s/p PICC and Permacath placement with vascular surgery on 12/27 -Extubated on 12/28, reintubated 12/31 for respiratory distress and extubated 01/08 -12/29 echocardiogram shows moderate concentric LVH, small pericardial effusion, transmitral Doppler flow pattern is grade 1 abnormal relaxation pattern, left- ventricular systolic function normal, LVEF 50 to 55%, no wall motion abnormalities. -01/01 CT abdomen/pelvis shows small pericardial effusion, mild coronary artery atherosclerotic calcification, small bilateral pleural effusions with associated volume loss, no convincing evidence of bowel obstruction or inflammation, postoperative changes from interval/recent midline laparotomy with a moderate amount of free fluid throughout the abdomen, small amount of dependent free air presumably postoperative -01/02 s/p ex lap, resection of perforated anastamosis, washout and abthera wound vac placement. -01/04 s/p ex lap with right hemicolectomy. -01/06 s/p exploratory laparotomy, Jejunal colonic anastomosis, Segmental small bowel resection. -s/p Vasopressor support with Levophed and vasopressin -Transitioned to HD from PD -HD per nephro, Epogen with HD -Strict NPO -cont TPN, Octreotide drip -s/p NGT to LIWS, now placed on G-tube for decompression - s/p rectal tube -s/p IV antibiotics -Tobacco abuse cessation counseling -Trend CBC, BMP DVT/GI prophylaxis: PPI, heparin subcu, SCDs to bilateral lower extremities while in bed Brief Course: This is a 60 YO Male with ESRD on PD, GERD, Crohn's Disease, Nicotine Dependence, HTN, Systolic CHF(EF 35%) who presented to the emergency department on 12/22 with complaints of abdominal pain which began shortly after eating fast food rated 10/10 which is periumbilical, constant, associated with fever, nausea and multiple sites of vomiting and self-reported inability to undergo PD. In the emergency room patient underwent a CT scan of the abdomen/pelvis which revealed evidence of partial small bowel obstruction, symptoms were consistent with bacterial peritonitis. Patient was admitted to the hospital service with sepsis, peritonitis, and small bowel obstruction with consults to general surgery, nephrology, infectious disease and [facility]. Daily clinical course: 12/23. Patient had temperature 101.2 F, tachycardia and elevated lactic acid on admission. Meet sepsis criteria. Started on IV antibiotics. ID has been consulted. Surgery consulted this a.m.-advised laparoscopy. He remains on NG tube connected to suction. 12/24. Patient was noted to have peritonitis yesterday and patient undergoing exploratory laparotomy. Patient remained intubated after procedure and is in ICU. Now on broad-spectrum antibiotics. ID on board. 12/25. Remains mechanically ventilated and sedated. Temp 103 Fahrenheit. Antibiotics broadened-ID added fluconazole and Flagyl. Blood cultures ordered. Plan to repeat CT abdomen tomorrow if not better. Surgery following. 12/26: Patient remains on mechanical ventilation on CMV tidal line 550, rate of 14, PEEP of 8 and 30% FiO2 and sedated on fentanyl 4 micrograms. Today we will remove his Jeffery and [facility] dropped his rate controlled him on CPAP. We will trend CBC given recent drop in H/H. 12/27: Patient remains intubated on CMV tidal volume 550, rate 12, PEEP 8 on 30% FiO2 at the time my examination. Patient's TPN will be changed to PPN. Adebayo dueñas's fentanyl drip will be changed to IV push fentanyl and have a permacath placed today and midline. Patient was placed on a spontaneous breathing trial was switched back to CMV prior to procedure. 12/28: Patient on fentanyl but awake and follows commands. At the time of my examination he was on a CPAP trial and is scheduled to receive HD today. s/o permacath and PICC placement with vascular yesterday. His blood culture grew Prevotella and addition to Streptococcus bovis. This evening Dr. Spicer attempted to extubate the patient and his heart rate went to the 180s. Stat EKG obtained and cardiology consulted. 12/29: Patient was started on amiodarone IV for A. fib RVR yesterday and today he is more rate controlled into the 70s and 80s. Patient was extubated yesterday and is currently on Ventimask. Patient will be transferred to [facility]. Patient continues to be n.p.o. with TPN and NG tube to LIS. He is hypokalemic today which was repleted. 12/30; patient was on IV amiodarone for treatment with RVR, rate is controlled. Patient was off oxygen. patient is n.p.o. and on TPN. Surgery is following the patient. 12/31: Patient was intubated overnight for respiratory distress and this morning on examination he was on assist control tidal volume 450, rate 20, PEEP 6, 100% FiO2 and RT was getting a ABG to adjust vent settings. Patient had a acute bump in WBC and per ID recommendations we will obtain a CT abdomen/pelvis if leukocytosis persist. Patient is on TPN and sedated with Levophed. Patient is also on vasopressor support with Levophed. Per surgery his ileus is resolving however will maintain OGT to LIWS. 01/01: Patient was started on a vasopressin yesterday late evening. This morning patient is on 20 mcg of Levophed and 0.03 vasopressin and sedated on 20 mcg of propofol. Patient WBC increased today and he is hypokalemic. We will treat hyperkalemia. Patient had a CT chest and abdomen/pelvis pending. The time examination total of 450, rate 20, PEEP of 6 and 35 percent FiO2. Per RN, Dr Pollock has stated that the patient will be returning to the OR today for likely anastomosis seen on CT abdomen/pelvis. 01/02: Patient noted, WBC improving, but noted to have anemia, will transfuse additional unit of Blood and repeat H/H. continue supportive care. 01/03: Continue to wean pressors, ABX PER ID, patient to return to OR today for washout and possible closure, CONTINUE TPN 01/04: Continues to show some improvement. Today is POD#12 s/p ex lap with extensive lysis of adhesions and two small bowel resections with primary anastamosis for SBO with necrotic segment small bowel. POD#3 s/p ex lap, resection of perforated anastamosis, washout and abthera wound vac placement. POD#1 s/p ex lap with right hemicolectomy. Surgery planning to take back to the OR on Saturday with the hope to anastamos ileum to transverse colon and close abdomen. keep NGT to suction. Pt in deep sedation due to open abdomen. Per ID - Continue IV Zosyn, renally dosed for Strep bacteremia treatment till 01/06/2021 -On TPN 01/05: Patient continues on HD, anticipate return to OR tomorrow for closure and anastemosis. Continues with deep sedation due to open abdomen 01/06: Continue supportive care, monitor pressures and electrolytes. He is post op Exploratory laparotomy, 2. Jejunal colonic anastomosis,3. Segmental small bowel resection and anastemosis closure today. Continue wound vac 01/07: Continue supportive care, Today is POD#15 s/p ex lap with extensive lysis of adhesions and two small bowel resections with primary anastamosis for SBO wit h necrotic segment small bowel. POD#6 s/p ex lap, resection of perforated anastamosis, washout and abthera wound vac placement. POD#4 s/p ex lap with right hemicolectomy. POD #1 exploratory laparotomy, 2. Jejunal colonic anastomosis,3. Segmental small bowel resection. Continue to monitor and sruthi ect electrolytes. Patient remains on fentanyl and TPN with lipids. Still hypoactive bowel sounds. 16: Patient now extubated, asked when he can go home, Still lethargic. Continue wound management, wound vac, Will need Rehab eval prior to discharge. 01/09: Patient remains on TPN, was started on labetalol drip per cardiology, patient had uncontrolled hypertension today however he cannot be given p.o. medications ileus resolves per surgery. Patient received hemodialysis today. NG tube remains to low intermittent suction. 01/10: Patient has some leukocytosis, slight hypokalemia and hyponatremia, metabolic acidosis. NG tube to LIWS, continue TPN. Patient will be downgraded to IMCU today. [facility] is working on placement. Will change frequency of hydralazine and discontinue labetalol drip. We will obtain a.m. BMP/mag/Phos and CBC. Infectious disease will like to start Zosyn if leukocytosis continues to worsen. 01/11: Patient leukocytosis has slightly improved potassium with in normal limits and other electrolytes are elevated but patient is scheduled for HD today. Remains on RA and A,A,Ox4. BP better controlled but remains elevated and we will increase clonidine dose. 01/12/2021; patient's blood pressure is better after dialysis and as needed IV medications and clonidine patch. Patient is followed by general surgery. Patient was alert and oriented and asked when he is going home. 01/13: Surgery is concerned about a leak at his anastamosis given increased output and will treat as controlled fistula and start an octreotide drip. And per surgery if he requires operative intervention will likely need to be left in discontinuity and eventual ileostomy as he has already failed two anastamoses. Patient still has tongue swelling and slurred speech. He is on Benadryl. 01/14: Patient's tongue swelling is improved, patient is alert and oriented, CAM ICU negative. Continue NG tube to low wall intermittent suction. Leukocytosis is improving. Hypomagnesemia resolved. Epogen with HD 01/15: Patient tongue swelling is much improved, bladder scan completed by bedside RN and he needed to be straight cathed. NGT output decreased. Leukocytosis improving. Patient has been having episodes of hypoglycemia during the day and he is on cyclic TPN, Lantus rescheduled to nightly and dosage decreased. 01/16: Continue management per ID and surgery. Will defer repeat CT of the abdomen to the team surgery has been approved by nephrology. Continue current diet and advance all to ice if okay with surgery discussed with nursing staff. 01/17: Discussed surgical recommendation of strict n.p.o. except for small amount of ice as patient has already failed to anastomosis. And risk for additional surgery with tissues were extremely friable from previous scar. He continues on octreotide drip to slow down GI output HARIS drain remains in place with NG suction for decompression. Patient verbalized understanding although stressed about being discharged. We will continue IMCU care unless otherwise advised by surgery. Prognosis remains guarded continue to monitor electrolytes considering GI output. 01/18: Continue supportive care, BP mildly elevated, continue to monitor, con tinue current therapy, if no return to PO soon may consider Increasing clonidine to 0.3, PO when ok with surgery. 01/19:Continue supportive care, Per ID continue IV Zosyn, plan to stop at 3 weeks from last surgery end date: 01/24/2021. Other management per surgery. Continue TPN. 01/20: Discussed with Surgery, will continue current management. Advised patient of the findings and plan. 01/21: Continue supportive care. Continue management per surgery advance diet when okay with surgery. Plan of care discussed with the patient in detail. 01/22: NG tube to be replaced explained to the patient why this is important. I agree with PT OT discussed with nursing staff very important to let the PT team know that they should manage HARIS drain while patient is ambulating so that he does not come out. Continue current management. Change in ocreotide to q8h and d/c drip NOTED 01/23: Continue supportive care, HD today, counselling provided to the patient on compliance with medical management 01/24: Replace NGT, Continue management per Surgery. POD 32. Mild hypokalemia noted, will replace. 01/25: Brief summary patient is a 60-year-old male admitted with abdominal pain and noted to have necrotic bowel concerning for PD associated peritonitis. Catheter was placed to convert to HD. Patient also underwent multiple surgical interventions. Initial cultures showed Streptococcus bovis bacteremia and Prevotella bacteremia a COLIN was without vegetations repeat blood cultures have b een negative. Part of the surgery is included ex lap, resection of perforated anastomosis, washout and a better wound VAC placement on 01/01. While progress has remained slow if has indeed shown some improvement. Patient is agitated about being in the hospital but understands the care management been provided his vital to his health and to prevent further surgeries. The NG tube has been pulled out 2 days ago he vehemently refused the tube being placed back but after a day of nausea with associated vomiting he was accepting of the chest tube to put back. He continues on TPN. We will continue to monitor electrolytes and correct as needed. This a.m. and erroneous blood was obtained likely from the same line as TPN repeat was done which showed normalizing factors. Patient completed antibiotics on 01/25/2020 . 01/26 Patient with severe sepsis with septic shock, small bowel obstruction, necrotic bowel s/p multiple surgeries. He complains of abdominal pain. No fever currently. He asked me when is he going home and i explained that he is not yet stable for discharge 01/27 Patient with severe sepsis with septic shock, small bowel obstruction, necrotic bowel s/p multiple surgeries. He complains of abdominal pain. No fever currently. Paroxysmal atrial fib managed by cardiology 01/28 Patient with severe sepsis with septic shock, small bowel obstruction, necrotic bowel s/p multiple surgeries. No fever currently. No abd pain currently. I discussed with Surgeon, Dr. Pollock. Continue current management. He also has paroxysmal afib, managed by Cardiology. 01/29 Patient with severe sepsis with septic shock, small bowel obstruction, necrotic bowel s/p multiple surgeries. No fever currently. No abd pain currently. I discussed with Surgeon, Dr. Pollock, yesterday. Continue current management. He also has paroxysmal afib, managed by Cardiology. He is on Metoprolol, Digoxin, Clonidine 01/30 Patient with severe sepsis with septic shock, small bowel obstruction, n ecrotic bowel s/p multiple surgeries. Patient is a 60-year-old male admitted with abdominal pain and noted to have necrotic bowel concerning for PD associated peritonitis. Catheter was placed to convert to HD. Patient also underwent multiple surgical interventions. Initial cultures showed Strep tococcus bovis bacteremia and Prevotella bacteremia a COLIN was without vegetations repeat blood cultures have been negative. Part of the surgery is included ex lap, resection of perforated anastomosis, washout and a better wound VAC placement on 01/01. While progress has remained slow if has indeed shown some improvement. Patient is agitated about being in the hospital but understands the care management been provided his vital to his health and to prevent further surgeries. He continues on TPN. No fever currently. Less abdominal pain. Discussed with Surgeon, Dr. Pollock, few days ago. Continue current management. He also has paroxysmal afib, managed by Cardiology. He is on Metoprolol, D igoxin, Clonidine. ESRD on dialysis managed by Nephrology. 01/31: Continue HARIS drain suction. Ongoing treatment for anastomotic leak/controlled low output fistula. Maintain LIWS to NGT and monitor output. continue q 8h ocreotide. cont TPN. Defer to general surgery for NG tube discontinuation. 02/01: planned for g-tube placement for gastric decompression. Removed NG tube today. S/p HD -tolerated well : Status post G-tube placement today, resume TPN, patient is off from rectal tube. Continue supportive care and follow general surgery recommendation for discharge planning. Hemodialysis per schedule 02/03 -02/05: cont TPN, G-tube suction, Continue supportive care and follow general surgery recommendation for discharge planning. Hemodialysis per schedule. 02/06: Per surgery Anastamotic leak slowing down and is a controlled fistula. Continue HARIS drain suction. Since HARIS drain has continued to stay about 10ml over the last several days, plan to continue lower dose of octreotide. continue g-tube to drainage for decompression. continue clear liquids and closely monitor HARIS drain output. patient need LTAC placement. Continue to replace electrolytes and monitor phosphate level 02/07/2021; Per surgery Anastamotic leak slowing down and is a controlled fistula. Continue HARIS drain suction. Since HARIS drain has continued to stay about 10ml over the last several days, plan to continue lower dose of octreotide. continue g-tube to drainage for decompression. continue clear liquids and closely monitor HARIS drain output. patient need LTAC placement. Continue to replace electrolytes and monitor phosphate level. 02/08/2021; patient need to be transferred to LTAC. Patient expressed he wants to go home. 02/09/2021; pending LTAC placement History Interval history: Patient was seen and evaluated this morning Patient on TPN, tolerated clear liquid diet HARIS tube in place Hospitalist Physical - Physical exam Narrative exam: Patient was not in cardiopulmonary distress The patient appeared well nourished and normally developed. Vital signs as documented. Head exam is unremarkable. No scleral icterus . Neck is without jugular venous distension, thyromegaly, or carotid bruits. Lungs are clear to auscultation. Cardiac exam reveals regular rate and Rhythm. Abdominal exam reveals clean midline surgical laparatomy wound. HARIS tube in place Extremities are nonedematous and both femoral and pedal pulses are normal. [employer] TECHNICIAN: Alert and oriented 3. No focal weakness. - Constitutional Vitals: Temp Pulse Resp BP Pulse Ox 98.4 F 87 16 135/62 100 02/09/21 07:00 02/09/21 07:00 02/09/21 07:00 02/09/21 07:00 02/09/21 07:00 General appearance: Present: no acute distress HEART Score - HEART Score Troponin: Troponin T 0.021 ng/mL (0.00-0.029) 12/22/20 14:38 Results - Labs CBC & Chem 7: 02/07/21 04:35 02/09/21 07:44 Labs: Laboratory Last Values WBC 9.6 K/mm3 (4.5-11.0) 02/07/21 04:35 RBC 2.52 M/mm3 (3.65-5.03) L 02/07/21 04:35 Hgb 8.0 gm/dl (11.8-15.2) L 02/07/21 04:35 Hct 22.5 % (35.5-45.6) L 02/07/21 04:35 MCV 89 fl (84-94) 02/07/21 04:35 MCH 32 pg (28-32) 02/07/21 04:35 MCHC 36 % (32-34) H 02/07/21 04:35 RDW 16.7 % (13.2-15.2) H 02/07/21 04:35 Plt Count 230 K/mm3 (140-440) 02/07/21 04:35 Lymph % (Auto) 12.7 % (13.4-35.0) L 02/07/21 04:35 [place] % (Auto) 10.2 % (0.0-7.3) H 02/07/21 04:35 Eos % (Auto) 5.0 % (0.0-4.3) H 02/07/21 04:35 Baso % (Auto) 0.5 % (0.0-1.8) 02/07/21 04:35 Lymph # (Auto) 1.2 K/mm3 (1.2-5.4) 02/07/21 04:35 [place] # (Auto) 1.0 K/mm3 (0.0-0.8) H 02/07/21 04:35 Eos # (Auto) 0.5 K/mm3 (0.0-0.4) H 02/07/21 04:35 Baso # (Auto) 0.0 K/mm3 (0.0-0.1) 02/07/21 04:35 Add Manual Diff Complete 01/10/21 09:26 Total Counted 100 01/10/21 09:26 Seg Neutrophils % 71.6 % (40.0-70.0) H 02/07/21 04:35 Seg Neuts % (Manual) 95.0 % (40.0-70.0) H 01/10/21 09:26 Band Neutrophils % 1.0 % 01/10/21 09:26 Lymphocytes % (Manual) 3.0 % (13.4-35.0) L 01/10/21 09:26 Reactive Lymphs % (Man) 1.0 % 12/29/20 05:16 Monocytes % (Manual) 1.0 % (0.0-7.3) 01/10/21 09:26 Eosinophils % (Manual) 2.0 % (0.0-4.3) 12/29/20 05:16 Metamyelocytes % 2.0 % 12/29/20 05:16 Nucleated RBC % Not Reportable 01/10/21 09:26 Seg Neutrophils # 6.9 K/mm3 (1.8-7.7) 02/07/21 04:35 Seg Neutrophils # Man 17.3 K/mm3 (1.8-7.7) H 01/10/21 09:26 Band Neutrophils # 0.2 K/mm3 01/10/21 09:26 Lymphocytes # (Manual) 0.5 K/mm3 (1.2-5.4) L 01/10/21 09:26 Abs React Lymphs (Man) 0.0 K/mm3 01/10/21 09:26 Monocytes # (Manual) 0.2 K/mm3 (0.0-0.8) 01/10/21 09:26 Eosinophils # (Manual) 0.0 K/mm3 (0.0-0.4) 01/10/21 09:26 Basophils # (Manual) 0.0 K/mm3 (0.0-0.1) 01/10/21 09:26 Metamyelocytes # 0.0 K/mm3 01/10/21 09:26 Myelocytes # 0.0 K/mm3 01/10/21 09:26 Promyelocytes # 0.0 K/mm3 01/10/21 09:26 Blast Cells # 0.0 K/mm3 01/10/21 09:26 WBC Morphology Not Reportable 01/10/21 09:26 Hypersegmented Neuts Not Reportable 01/10/21 09:26 Hyposegmented Neuts Not Reportable 01/10/21 09:26 Hypogranular Neuts Not Reportable 01/10/21 09:26 Smudge Cells Not Reportable 01/10/21 09:26 Toxic Granulation 1+ 01/10/21 09:26 Toxic Vacuolation Not Reportable 05/18/21 09:26 Dohle Bodies Not Reportable 01/10/21 09:26 Pelger-Huet Anomaly Not Reportable 01/10/21 09:26 Lamar Rods Not Reportable 01/10/21 09:26 Platelet Estimate Consistent w auto 01/10/21 09:26 Clumped Platelets Not Reportable 01/10/21 09:26 Plt Clumps, EDTA Not Reportable 01/10/21 09:26 Large Platelets Not Reportable 01/10/21 09:26 Giant Platelets Not Reportable 01/10/21 09:26 Platelet Satelliting Not Reportable 01/10/21 09:26 Plt Morphology Comment Not Reportable 01/10/21 09:26 RBC Morphology Not Reportable 01/10/21 09:26 Dimorphic RBCs Not Reportable 01/10/21 09:26 Polychromasia Not Reportable 01/10/21 09:26 Hypochromasia Not Reportable 01/10/21 09:26 Poikilocytosis Not Reportable 01/10/21 09:26 Anisocytosis 1+ 01/10/21 09:26 Microcytosis Not Reportable 01/10/21 09:26 Macrocytosis Not Reportable 01/10/21 09:26 Spherocytes Not Reportable 01/10/21 09:26 Pappenheimer Bodies Not Reportable 01/10/21 09:26 Sickle Cells Not Reportable 01/10/21 09:26 Target Cells Not Reportable 01/10/21 09:26 Tear Drop Cells Not Reportable 01/10/21 09:26 Ovalocytes Not Reportable 01/10/21 09:26 Helmet Cells Not Reportable 01/10/21 09:26 [place] Bodies Not Reportable 01/10/21 09:26 [place] Rings Not Reportable 01/10/21 09:26 [place] Cells Not Reportable 01/10/21 09:26 Bite Cells Not Reportable 01/10/21 09:26 Crenated Cell Not Reportable 01/10/21 09:26 Elliptocytes Not Reportable 01/10/21 09:26 Acanthocytes (Spur) Not Reportable 01/10/21 09:26 Rouleaux Not Reportable 01/10/21 09:26 Hemoglobin C Crystals Not Reportable 01/10/21 09:26 Schistocytes Not Reportable 01/10/21 09:26 Malaria parasites Not Reportable 01/10/21 09:26 Lucas Bodies Not Reportable 01/10/21 09:26 Hem Pathologist Commnt No 01/10/21 09:26 PT 16.9 Sec. (12.2-14.9) H 01/01/21 12:45 INR 1.39 (0.87-1.13) H 01/01/21 12:45 APTT 25.1 Sec. (24.2-36.6) 12/22/20 14:38 ABG pH 7.345 pH Units (7.350-7.450) L 01/07/21 17:14 POC ABG pCO2 41.4 mmHg (32.0-48.0) 01/07/21 03:07 ABG pCO2 40.3 mm Hg 01/07/21 17:14 POC ABG pO2 94.5 mmHg (83-108) 01/07/21 03:07 ABG pO2 67.4 mm Hg (80.0-90.0) L 01/07/21 17:14 POC ABG HCO3 22.7 01/07/21 03:07 ABG HCO3 21.5 mmol/L (20.0-26.0) 01/07/21 17:14 ABG O2 Saturation 94.3 % (95.0-99.0) L 01/07/21 17:14 ABG O2 Content 11.6 (0.0-44) 01/07/21 17:14 POC ABG Base Excess -2.7 01/07/21 03:07 ABG Base Excess -3.9 mmol/L (-2.0-3.0) L 01/07/21 17:14 ABG Hemoglobin 8.9 gm/dl (14.0-18.0) L 01/07/21 17:14 ABG Oxyhemoglobin 96.6 (94-98) 01/07/21 03:07 ABG Carboxyhemoglobin 1.5 % (0.0-5.0) 01/07/21 17:14 ABG Methemoglobin 0.6 % (0.0-1.5) 01/07/21 17:14 ABG Sodium 135.6 mmol/L (136.0-145.0) L 01/07/21 03:07 ABG Potassium 4.0 mmol/L (3.40-4.50) 01/07/21 03:07 ABG Chloride 102.0 mmol/L (98-107) 01/07/21 03:07 ABG Glucose 181 mg/dL (65-95) H 01/07/21 03:07 Oxyhemoglobin 92.3 % (95.0-99.0) L 01/07/21 17:14 Carboxyhemoglobin 0.7 (0.5-1.5) 01/07/21 03:07 FiO2 21 % 01/07/21 17:14 FiO2 % 45.0 01/07/21 03:07 Sodium 135 mmol/L (137-145) L 02/09/21 07:44 Potassium 3.2 mmol/L (3.6-5.0) L 02/09/21 07:44 Chloride 93.0 mmol/L (98-107) L 02/09/21 07:44 Carbon Dioxide 29 mmol/L (22-30) 02/09/21 07:44 Anion Gap 16 mmol/L 02/09/21 07:44 BUN 42 mg/dL (9-20) H 02/09/21 07:44 Creatinine 11.4 mg/dL (0.8-1.3) H 02/08/21 06:45 Estimated GFR 6 ml/min 02/08/21 06:45 BUN/Creatinine Ratio 7 % 02/08/21 06:45 Glucose 128 mg/dL (75-100) H 02/09/21 07:44 POC Glucose 115 mg/dL (70-105) H 02/09/21 04:43 Lactic Acid 1.10 mmol/L (0.7-2.0) 01/14/21 05:39 Calcium 8.7 mg/dL (8.4-10.2) 02/09/21 07:44 Phosphorus 3.20 mg/dL (2.5-4.5) 02/08/21 06:45 Magnesium 2.10 mg/dL (1.7-2.3) 02/09/21 07:44 Total Bilirubin 0.50 mg/dL (0.1-1.2) 02/05/21 06:30 AST 19 units/L (5-40) 02/05/21 06:30 ALT 22 units/L (7-56) 02/05/21 06:30 Alkaline Phosphatase 177 units/L (35-129) H 02/05/21 06:30 Ammonia 30.0 umol/L (25-60) 12/22/20 14:38 Troponin T 0.021 ng/mL (0.00-0.029) 12/22/20 14:38 Total Protein 6.0 g/dL (6.3-8.2) L 02/05/21 06:30 Albumin 2.9 g/dL (3.9-5) L 02/05/21 06:30 Albumin/Globulin Ratio 0.9 % 02/05/21 06:30 Triglycerides 72 mg/dL (2-149) 01/30/21 04:15 Lipase 41 units/L (13-60) 12/22/20 14:38 Procalcitonin > 200.00 ng/mL (<0.15) 12/24/20 15:06 TSH 1.470 mlU/mL (0.270-4.200) 12/28/20 19:44 Arterial Blood Glucose 181 mg/dL (65-95) H 01/07/21 03:07 Arterial Blood Ionized Calcium 4.3 mg/dL (4.6-5.3) L 01/07/21 03:07 Urine Color Yellow (Yellow) 12/22/20 18:53 Urine Turbidity Clear (Clear) 12/22/20 18:53 Urine pH 7.0 (5.0-7.0) 12/22/20 18:53 Ur Specific [place] 1.012 (1.003-1.030) 12/22/20 18:53 Urine Protein >500 mg/dL (Negative) 12/22/20 18:53 Urine Glucose (UA) Neg mg/dL (Negative) 12/22/20 18:53 Urine Ketones Neg mg/dL (Negative) 12/22/20 18:53 Urine Blood Neg (Negative) 12/22/20 18:53 Urine Nitrite Neg (Negative) 12/22/20 18:53 Urine Bilirubin Neg (Negative) 12/22/20 18:53 Urine Urobilinogen < 2.0 mg/dL (<2.0) 12/22/20 18:53 Ur Leukocyte Esterase Neg (Negative) 12/22/20 18:53 Urine WBC (Auto) < 1.0 /HPF (0.0-6.0) 12/22/20 18:53 Urine RBC (Auto) 1.0 /HPF (0.0-6.0) 12/22/20 18:53 Fluid Type Dialysate 12/22/20 Unknown Fluid Color Colorless 12/22/20 Unknown Fluid Appearance Cloudy 12/22/20 Unknown Fluid WBC 208 /mm3 12/22/20 Unknown Fluid RBC 45 /mm3 12/22/20 Unknown Fluid Seg Neutrophils 82.0 % 12/22/20 Unknown Fluid Lymphocytes 11.0 % 12/22/20 Unknown Fluid Reactive Lymphs 0 % 12/22/20 Unknown Fluid Monocytes 7.0 % 12/22/20 Unknown Fluid Eosinophils 0 % 12/22/20 Unknown Fluid Basophils 0 % 12/22/20 Unknown Random Vancomycin 13.7 ug/mL (0-40.0) 12/26/20 Unknown Digoxin 0.9 ng/mL (0.9-2.0) 02/04/21 05:40 Hepatitis A IgM Ab Non-reactive (NonReactive) 02/02/21 12:41 Hep Bs Antigen Non-reactive (Negative) 02/02/21 12:41 Hep B Core IgM Ab Non-reactive (NonReactive) 02/02/21 12:41 Hepatitis C Antibody Non-reactive (NonReactive) 02/02/21 12:41 Blood Type A POSITIVE 01/06/21 07:10 Antibody Screen Negative 01/06/21 07:10 Crossmatch See Detail 01/06/21 07:10 Jeffery/IV: Voiding Method Bedside Commode Active Medications - Current Medications Current Medications: Generic Name Dose Route Start Last Admin Trade Name Freq PRN Reason Stop Dose Admin Acetaminophen 650 mg 12/31/20 15:30 01/21/21 05:28 Acetaminophen 650 Mg Rect Supp [place] 650 mg Q6H PRN Administration Non Cardiac Pain or Temp>100.5 Clonidine HCl 0.2 mg 01/11/21 10:00 02/08/21 10:00 Clonidine Tts 0.2 Mg/24 Hr Patch TD Not Given We THOMAS Dextrose 50 ml 01/14/21 17:59 01/18/21 15:10 Dextrose 50% In Water (25gm) 50 Ml Syringe IV 20 ml Q30MIN PRN Administration Hypoglycemia Protocol Digoxin 0.125 mg 02/04/21 10:00 02/08/21 10:00 Digoxin 0.125 Mg Tab PO Not Given Q48HR THOMAS Diphenhydramine HCl 50 mg 01/20/21 10:10 02/01/21 14:15 Diphenhydramine 50 Mg/Ml Vial IV 50 mg Q6H PRN Administration Itching Diphenoxylate HCl/Atropine 1 tab 02/06/21 18:00 02/09/21 05:08 Diphenoxylate/Atropine Tab PO Not Given Q6H THOMAS Famotidine 10 mg 12/24/20 13:00 02/08/21 22:21 Famotidine 20 Mg/2 Ml Inj IV 10 mg BID THOMAS Administration Fluticasone Propionate 50 mcg 02/07/21 10:00 02/08/21 08:45 Fluticasone Propionate Nasal [place] 16 Gm NS 50 mcg QDAY [facility] Administration Haloperidol Lactate 5 mg 12/29/20 14:16 01/22/21 23:56 Haloperidol Lactate 5 Mg/1 Ml Inj IV 5 mg Q12H PRN Administration Agitation Heparin Sodium (Porcine) 5,000 unit 12/24/20 10:00 02/08/21 22:21 Heparin 5,000 Unit/1 Ml Vial SUB-Q 5,000 unit Q12HR THOMAS Administration Hydralazine HCl 10 mg 01/10/21 14:00 02/09/21 05:07 Hydralazine 20 Mg/1 Ml Inj IV Not Given Q4HR [facility] Hydrocortisone Acetate 1 applic 02/01/21 18:43 Hydrocortisone 1% Cream 28.4gm TP Q8H PRN Skin Irritation Hydromorphone HCl 0.25 mg 01/09/21 10:53 02/09/21 05:04 Hydromorphone 1 Mg/1 Ml Inj IV 0.25 mg Q6H PRN Administration Pain , Severe (7-10) Sodium Chloride 100 mls @ 999 mls/hr 01/27/21 18:37 Nacl 0.9% IV [place] PRN Hypotension Amino Acids/Electrolytes/Dextrose 2,016 mls @ 84 mls/hr 02/08/21 20:00 0 02/08/21 22:23 Tpn Adult IV 02/09/21 17:59 84 mls/hr DAILY@2000 [facility] Administration Protocol Insulin Glargine 5 units 01/18/21 22:00 02/08/21 22:46 Insulin Glargine 100 Units/Ml SUB-Q 5 units QHS [facility] Administration Insulin Human Lispro 0 unit 01/03/21 12:00 02/09/21 05:08 Insulin Lispro 100 Unit/Ml SUB-Q Not Given Q6HR [facility] Protocol Metoprolol Tartrate 5 mg 12/30/20 12:00 02/09/21 05:09 Metoprolol Tartrate 5 Mg/5 Ml Inj IV 5 mg Q4HR THOMAS Administration Morphine Sulfate 2 mg 02/02/21 12:00 02/03/21 13:31 Morphine 2 Mg/1 Ml Inj IV 2 mg Q3H PRN Administration Pain, Moderate (4-6) Ondansetron HCl 4 mg 01/25/21 11:56 02/08/21 12:44 Ondansetron 4 Mg/2 Ml Inj IV 4 mg Q4H PRN Administration Nausea And Vomiting Scopolamine 1 each 01/15/21 11:00 02/08/21 10:00 Scopolamine Transdermal Patch 72 Hr TD Not Given Q3D THOMAS Sodium Chloride 10 ml 12/22/20 22:00 02/08/21 22:22 Sodium Chloride 0.9% 10 Ml Flush Syringe IV 10 ml BID THOMAS Administration Sodium Chloride 10 ml 12/22/20 19:42 01/29/21 02:08 Sodium Chloride 0.9% 10 Ml Flush Syringe IV 10 ml PRN PRN Administration LINE FLUSH Nutrition/Malnutrition Assess - Dietary Evaluation Nutrition/Malnutrition Findings: Nutrition Notes Start: 12/24/20 12:36 Freq: Status: Active Protocol: Document 02/08/21 10:04 (Rec: 02/08/21 10:06 [email or web address]) Nutrition Notes Initial or Follow up Reassessment Current Diagnosis CKD (stage V CKD),Sepsis, Hypertension,Heart Failure, Small Bowel Obstruction Other Pertinent Diagnosis on HD, Peritonitis, SBO s/p resection Current Diet CPN at 84 ml/hr, Clear Liquids Labs/Tests Na 134 K 3.5 Pertinent Medications Reviewed Height 5 ft 7 in Weight 84 kg [place] Body Weight (kg) 67.27 BMI 29.0 Weight Status Overweight Subjective/Other Information TPN day 45. Will increase Na and K. Percent of energy/protein needs met: 95%/100% Burn Absent Trauma Absent Current % PO Negligible Minimum of two criteria No Reduced Inflated Pad Buffer Strength Measurably Reduced (severe) #2 Nutrition Diagnosis Increased nutrient needs ( specify in comment below) Diagnosis Progress(for reassessment Continues documentation) #1 Nutrition Diagnosis Inadequate oral intake Diagnosis Progress(for reassessment Continues documentation) Is patient on ventilator? No Is Patient Ambulatory and/or Out of Bed No REE-([facility]-confined to bed) 1923.300 Kcal/Kg value to use for calculation 21 Approximate Energy Requirements Using 1764 kcal/Kg Calculation Used for Recommendations Kcal/kg Additional Notes Pro needs: 100-120 g/day (1.25 -1.5 g/kg AdjBW, 81kg) Fluid needs per MD. Nutrition Intervention Change Diet Order: Continue CPN Nutrition Support: Continous CPN at 84 ml/hr: Osm 1637; K 30 mEq, Na 140 mEq MVI, lipids Kcal 2,174 Protein (gm) 121 Carbohydrates (gm) 350 Fat (gm) 50 Fluid (mL) 2,266 Fiber (gm) 0 Goal #1 Meet at least 75% of estimated energy and protein needs via CPN Anticipated Discharge Needs: continuous TPN at 84ml/hr Follow-Up By: 02/09/21 Additional Comments Labs in AM: BMP, Mg, Phos
[2021-02-09] MEDS: FAMOTIDINE 20 MG/2 ML INJ IV SCH ×2 (10:07→21:56)
[2021-02-09] MEDS: HEPARIN 5,000 UNIT/1 ML VIAL SUB-Q SCH ×2 (10:08→21:56)
[2021-02-09] MEDS: FLUTICASONE PROPIONATE NASAL SPRAY 16 GM NS SCH ×2 (10:10→10:11)
--- NOTE | 2021-02-09 14:19 | Progress Note ---
Assessment and Plan Acute hypoxemic respiratory failure, on mechanical ventilatory support. Severe Sepsis Peritonitis Acute small-bowel obstruction with tissue necrosis. End-stage renal disease, on dialysis. Hypertension. Crohn's disease. Gastroesophageal reflux disease. Heart failure with reduced ejection fraction. Hyperkalemia. Anemia that is normocytic. Lactic acidosis. Oropharyngeal dysphagia - continue TPN - begin enteral nutritiuon once ok with general surgeon - keep PEG to gravity meanwhile - no new issues otherwise, continue care as below; - continue incentive spirometry - continue octreotide - follow clinically for S&S of infection re: fevers / WBC - continue total parenteral nutrition - continue wound care per RN/WCN - continue to wean supplemental oxygen for target O2 sat's > 92% acutely - aspiration precautions - continue bronchodilators with pulmonary hygiene per RT - wean per pulmonary driven protocols otherwise - HD/UF per nephrology prescription for toxin and volume control - avoid nephrotoxins, renally dose all medications - continue accuchecks with glycemic control per SSI for target blood glucose of <180 mg/dL; avoid hypoglycemia - continue to avoid benzodiazepine's, reduce the possibility of delirium - AB's per ID rec's - prn analgesia per pain score - Maintenance of sleep-wake cycle, avoid delirium - G.I. & VTE prophylaxis - PT/OT/ROM exercises - continue mobility protocols for pressure ulcer prophylaxis - Monitor hemodynamics closely - continue other care per attending / other consultants - discharge planning ongoing concurrently .... Re-evaluate in am & prn \ Subjective Date of service: 02/09/21 Principal diagnosis: Ac hypoxemic resp failure; Severe Sepsis; Peritonitis; Acute SBO; ESRD; CHF Interval history: Patient is seen today for: Ac hypoxemic resp failure; Severe Sepsis; Peritonitis; Acute SBO; ESRD on Dialysis; HTN; Crohn's disease; HFrEF Seen and examined at bedside; 24hour events reviewed; nursing and respiratory care staff consulted; no adverse overnight events reported to me; resting in bed; remains on TPN and will need skilled nursing administration re: short gut post-op changes; Objective Vital Signs - 12hr 02/09/21 02/09/21 02/09/21 04:40 05:06 05:09 Temperature 98.7 F Pulse Rate 85 89 89 Respiratory 18 Rate Blood Pressure 127/68 127/68 127/68 Blood Pressure [Right] O2 Sat by Pulse 99 Oximetry 02/09/21 02/09/21 07:00 10:07 Temperature 98.4 F Pulse Rate 87 68 Respiratory 16 Rate Blood Pressure 123/62 Blood Pressure 135/62 [Right] O2 Sat by Pulse 100 Oximetry Constitutional: no acute distress, alert, other (00) Eyes: non-icteric ENT: oropharynx moist Neck: supple, no lymphadenopathy, no JVD Effort: normal Ascultation: Bilateral: clear, diminished breath sounds, rales, rhonchi Percussion: Bilateral: not dull Cardiovascular: regular rate and rhythm, other (S1,S2) Gastrointestinal: hypoactive bowel sounds, soft, non-tender, non-distended (protuberant), other (Midline abdominal incision; + PEG) Integumentary: other (Midline abdominal incision ) Extremities: no cyanosis, no edema, pulses normal, no ischemia or petechiae Neurologic: non-focal exam (grossly), pupils equal and round, CN II-XII normal Psychiatric: mood appropriate, affect normal CBC and BMP: 02/16/21 05:24 02/16/21 05:24 ABG, PT/INR, D-dimer: ABG ABG pH 7.345 pH Units (7.350-7.450) L 01/07/21 17:14 POC ABG pCO2 41.4 mmHg (32.0-48.0) 01/07/21 03:07 ABG pCO2 40.3 mm Hg 01/07/21 17:14 POC ABG pO2 94.5 mmHg (83-108) 01/07/21 03:07 ABG pO2 67.4 mm Hg (80.0-90.0) L 01/07/21 17:14 POC ABG HCO3 22.7 01/07/21 03:07 ABG O2 Saturation 94.3 % (95.0-99.0) L 01/07/21 17:14 PT/INR, D-dimer PT 16.9 Sec. (12.2-14.9) H 01/01/21 12:45 INR 1.39 (0.87-1.13) H 01/01/21 12:45 Abnormal lab findings: Abnormal Labs 12/22/20 12/22/20 12/22/20 14:38 14:38 14:38 WBC RBC Hgb 11.2 L Hct 35.0 L MCV MCHC RDW 16.7 H Plt Count Lymph % (Auto) [place] % (Auto) Eos % (Auto) Lymph # (Auto) [place] # (Auto) Eos # (Auto) Seg Neutrophils % Seg Neuts % (Manual) 94.0 H Lymphocytes % (Manual) 5.0 L Monocytes % (Manual) Seg Neutrophils # Seg Neutrophils # Man Lymphocytes # (Manual) 0.3 L Monocytes # (Manual) PT INR ABG pH POC ABG pCO2 POC ABG pO2 ABG pO2 ABG HCO3 ABG O2 Saturation ABG Base Excess ABG Hemoglobin ABG Oxyhemoglobin ABG Sodium ABG Potassium ABG Chloride ABG Glucose Oxyhemoglobin Sodium Potassium Chloride Carbon Dioxide BUN 58 H Creatinine 13.2 H Glucose 113 H POC Glucose Lactic Acid 3.60 H* Calcium Phosphorus Magnesium Total Bilirubin 1.30 H AST ALT Alkaline Phosphatase 155 H Total Protein Albumin Triglycerides Arterial Blood Glucose Arterial Blood Ionized Calcium Digoxin Crossmatch 12/22/20 12/22/20 12/23/20 16:26 17:47 05:22 WBC RBC Hgb Hct MCV MCHC RDW Plt Count Lymph % (Auto) [place] % (Auto) Eos % (Auto) Lymph # (Auto) [place] # (Auto) Eos # (Auto) Seg Neutrophils % Seg Neuts % (Manual) Lymphocytes % (Manual) Monocytes % (Manual) Seg Neutrophils # Seg Neutrophils # Man Lymphocytes # (Manual) Monocytes # (Manual) PT INR ABG pH POC ABG pCO2 POC ABG pO2 ABG pO2 ABG HCO3 ABG O2 Saturation ABG Base Excess ABG Hemoglobin ABG Oxyhemoglobin ABG Sodium ABG Potassium ABG Chloride ABG Glucose Oxyhemoglobin Sodium Potassium Chloride Carbon Dioxide BUN Creatinine Glucose POC Glucose Lactic Acid 2.80 H* 3.10 H* 2.30 H* Calcium Phosphorus Magnesium Total Bilirubin AST ALT Alkaline Phosphatase Total Protein Albumin Triglycerides Arterial Blood Glucose Arterial Blood Ionized Calcium Digoxin Crossmatch 12/23/20 12/23/20 12/23/20 05:22 05:22 06:35 WBC 12.1 H RBC Hgb 11.0 L Hct 33.7 L MCV MCHC RDW 16.9 H Plt Count Lymph % (Auto) [place] % (Auto) Eos % (Auto) Lymph # (Auto) [place] # (Auto) Eos # (Auto) Seg Neutrophils % Seg Neuts % (Manual) 93.0 H Lymphocytes % (Manual) 1.0 L Monocytes % (Manual) Seg Neutrophils # Seg Neutrophils # Man 11.3 H Lymphocytes # (Manual) 0.1 L Monocytes # (Manual) PT INR ABG pH POC ABG pCO2 POC ABG pO2 ABG pO2 ABG HCO3 ABG O2 Saturation ABG Base Excess ABG Hemoglobin ABG Oxyhemoglobin ABG Sodium ABG Potassium ABG Chloride ABG Glucose Oxyhemoglobin Sodium Potassium 5.7 H D Chloride Carbon Dioxide BUN 73 H Creatinine 14.2 H Glucose POC Glucose Lactic Acid 2.30 H* Calcium 7.9 L Phosphorus Magnesium Total Bilirubin 1.40 H AST 119 H ALT 130 H Alkaline Phosphatase 183 H Total Protein 6.1 L Albumin 3.6 L Triglycerides Arterial Blood Glucose Arterial Blood Ionized Calcium Digoxin Crossmatch 12/23/20 12/23/20 12/23/20 11:40 13:53 16:47 WBC RBC Hgb 10.0 L Hct 30.4 L MCV MCHC RDW Plt Count Lymph % (Auto) [place] % (Auto) Eos % (Auto) Lymph # (Auto) [place] # (Auto) Eos # (Auto) Seg Neutrophils % Seg Neuts % (Manual) Lymphocytes % (Manual) Monocytes % (Manual) Seg Neutrophils # Seg Neutrophils # Man Lymphocytes # (Manual) Monocytes # (Manual) PT INR ABG pH POC ABG pCO2 POC ABG pO2 137.5 H ABG pO2 ABG HCO3 ABG O2 Saturation ABG Base Excess ABG Hemoglobin 9.7 L ABG Oxyhemoglobin ABG Sodium 134.1 L ABG Potassium 6.6 H ABG Chloride ABG Glucose 103 H Oxyhemoglobin Sodium Potassium Chloride Carbon Dioxide BUN Creatinine Glucose POC Glucose Lactic Acid Calcium Phosphorus Magnesium Total Bilirubin AST ALT Alkaline Phosphatase Total Protein Albumin Triglycerides Arterial Blood Glucose 103 H Arterial Blood Ionized Calcium 3.8 L Digoxin Crossmatch See Detail 12/23/20 12/23/20 12/24/20 20:35 20:40 01:20 WBC RBC Hgb Hct MCV MCHC RDW Plt Count Lymph % (Auto) [place] % (Auto) Eos % (Auto) Lymph # (Auto) [place] # (Auto) Eos # (Auto) Seg Neutrophils % Seg Neuts % (Manual) Lymphocytes % (Manual) Monocytes % (Manual) Seg Neutrophils # Seg Neutrophils # Man Lymphocytes # (Manual) Monocytes # (Manual) PT INR ABG pH 7.252 L POC ABG pCO2 POC ABG pO2 ABG pO2 50.1 L ABG HCO3 ABG O2 Saturation 81.1 L ABG Base Excess -5.9 L ABG Hemoglobin 12.1 L ABG Oxyhemoglobin ABG Sodium ABG Potassium ABG Chloride ABG Glucose Oxyhemoglobin 78.6 L Sodium 134 L Potassium 6.9 H* D 6.3 H* Chloride Carbon Dioxide 18 L 20 L BUN 87 H 91 H Creatinine 15.3 H 15.3 H Glucose 103 H POC Glucose Lactic Acid Calcium 6.9 L 7.5 L Phosphorus Magnesium Total Bilirubin AST ALT Alkaline Phosphatase Total Protein Albumin Triglycerides Arterial Blood Glucose Arterial Blood Ionized Calcium Digoxin Crossmatch 12/24/20 12/24/20 12/24/20 04:00 10:29 10:29 WBC RBC 3.49 L Hgb 10.5 L Hct 31.2 L MCV MCHC RDW 17.5 H Plt Count 124 L Lymph % (Auto) 3.7 L [place] % (Auto) 9.8 H Eos % (Auto) Lymph # (Auto) 0.2 L [place] # (Auto) Eos # (Auto) Seg Neutrophils % 85.9 H Seg Neuts % (Manual) Lymphocytes % (Manual) Monocytes % (Manual) Seg Neutrophils # Seg Neutrophils # Man Lymphocytes # (Manual) Monocytes # (Manual) PT INR ABG pH POC ABG pCO2 28.1 L POC ABG pO2 ABG pO2 ABG HCO3 ABG O2 Saturation ABG Base Excess ABG Hemoglobin ABG Oxyhemoglobin ABG Sodium 133.9 L ABG Potassium 5.3 H ABG Chloride 108.0 H ABG Glucose Oxyhemoglobin Sodium Potassium 5.6 H Chloride Carbon Dioxide 19 L BUN 99 H Creatinine 16.9 H Glucose 52 L POC Glucose Lactic Acid Calcium 7.6 L Phosphorus Magnesium Total Bilirubin 3.50 H AST 67 H ALT 71 H Alkaline Phosphatase Total Protein 3.5 L D Albumin 2.1 L Triglycerides Arterial Blood Glucose Arterial Blood Ionized Calcium 4.0 L Digoxin Crossmatch 12/25/20 12/25/20 12/25/20 03:33 04:00 04:00 WBC 3.8 L RBC 2.90 L Hgb 8.6 L Hct 25.7 L MCV MCHC RDW 16.7 H Plt Count 113 L Lymph % (Auto) [place] % (Auto) Eos % (Auto) Lymph # (Auto) [place] # (Auto) Eos # (Auto) Seg Neutrophils % Seg Neuts % (Manual) Lymphocytes % (Manual) Monocytes % (Manual) Seg Neutrophils # Seg Neutrophils # Man Lymphocytes # (Manual) Monocytes # (Manual) PT INR ABG pH 7.544 H POC ABG pCO2 28.2 L POC ABG pO2 62.8 L ABG pO2 ABG HCO3 ABG O2 Saturation ABG Base Excess ABG Hemoglobin 9.3 L ABG Oxyhemoglobin 93.0 L ABG Sodium 130.3 L ABG Potassium ABG Chloride ABG Glucose 97 H Oxyhemoglobin Sodium Potassium Chloride Carbon Dioxide BUN 62 H Creatinine 11.4 H Glucose POC Glucose Lactic Acid Calcium 7.7 L Phosphorus 5.00 H Magnesium Total Bilirubin AST ALT Alkaline Phosphatase Total Protein Albumin Triglycerides Arterial Blood Glucose 97 H Arterial Blood Ionized Calcium 3.9 L Digoxin Crossmatch 12/26/20 12/26/20 12/27/20 04:46 Unknown 03:40 WBC 4.1 L RBC 2.61 L Hgb 7.8 L Hct 23.4 L MCV MCHC RDW 17.1 H Plt Count 119 L Lymph % (Auto) 5.3 L [place] % (Auto) 10.6 H Eos % (Auto) Lymph # (Auto) 0.2 L [place] # (Auto) Eos # (Auto) Seg Neutrophils % 78.8 H Seg Neuts % (Manual) Lymphocytes % (Manual) Monocytes % (Manual) Seg Neutrophils # Seg Neutrophils # Man Lymphocytes # (Manual) Monocytes # (Manual) PT INR ABG pH 7.333 L 7.332 L POC ABG pCO2 POC ABG pO2 ABG pO2 ABG HCO3 26.9 H ABG O2 Saturation ABG Base Excess -2.4 L ABG Hemoglobin 6.8 L 7.2 L ABG Oxyhemoglobin ABG Sodium ABG Potassium ABG Chloride ABG Glucose Oxyhemoglobin 93.0 L 93.1 L Sodium Potassium Chloride Carbon Dioxide BUN Creatinine Glucose POC Glucose Lactic Acid Calcium Phosphorus Magnesium Total Bilirubin AST ALT Alkaline Phosphatase Total Protein Albumin Triglycerides Arterial Blood Glucose Arterial Blood Ionized Calcium Digoxin Crossmatch 12/27/20 12/27/20 12/27/20 06:40 06:40 11:22 WBC 4.4 L RBC 2.49 L Hgb 7.4 L Hct 22.4 L MCV MCHC RDW 17.1 H Plt Count 111 L Lymph % (Auto) 6.7 L [place] % (Auto) 12.6 H Eos % (Auto) Lymph # (Auto) 0.3 L [place] # (Auto) Eos # (Auto) Seg Neutrophils % 77.6 H Seg Neuts % (Manual) Lymphocytes % (Manual) Monocytes % (Manual) Seg Neutrophils # Seg Neutrophils # Man Lymphocytes # (Manual) Monocytes # (Manual) PT INR ABG pH POC ABG pCO2 POC ABG pO2 ABG pO2 ABG HCO3 ABG O2 Saturation ABG Base Excess ABG Hemoglobin ABG Oxyhemoglobin ABG Sodium ABG Potassium ABG Chloride ABG Glucose Oxyhemoglobin Sodium Potassium Chloride Carbon Dioxide BUN 64 H Creatinine 9.8 H Glucose 147 H POC Glucose 134 H Lactic Acid Calcium 8.3 L Phosphorus 5.00 H Magnesium Total Bilirubin 3.70 H AST 72 H ALT Alkaline Phosphatase 142 H Total Protein 5.1 L D Albumin 2.9 L Triglycerides Arterial Blood Glucose Arterial Blood Ionized Calcium Digoxin Crossmatch 12/27/20 12/27/20 12/28/20 17:29 23:31 03:09 WBC RBC Hgb Hct MCV MCHC RDW Plt Count Lymph % (Auto) [place] % (Auto) Eos % (Auto) Lymph # (Auto) [place] # (Auto) Eos # (Auto) Seg Neutrophils % Seg Neuts % (Manual) Lymphocytes % (Manual) Monocytes % (Manual) Seg Neutrophils # Seg Neutrophils # Man Lymphocytes # (Manual) Monocytes # (Manual) PT INR ABG pH 7.474 H POC ABG pCO2 POC ABG pO2 ABG pO2 ABG HCO3 ABG O2 Saturation ABG Base Excess ABG Hemoglobin 7.8 L ABG Oxyhemoglobin ABG Sodium ABG Potassium ABG Chloride ABG Glucose Oxyhemoglobin Sodium Potassium Chloride Carbon Dioxide BUN Creatinine Glucose POC Glucose 121 H 131 H Lactic Acid Calcium Phosphorus Magnesium Total Bilirubin AST ALT Alkaline Phosphatase Total Protein Albumin Triglycerides Arterial Blood Glucose Arterial Blood Ionized Calcium Digoxin Crossmatch 12/28/20 12/28/20 12/28/20 05:37 05:40 05:40 WBC 4.3 L RBC 2.40 L Hgb 7.2 L Hct 21.5 L MCV MCHC RDW 17.4 H Plt Count 112 L Lymph % (Auto) 6.5 L [place] % (Auto) 16.7 H Eos % (Auto) Lymph # (Auto) 0.3 L [place] # (Auto) Eos # (Auto) Seg Neutrophils % 71.1 H Seg Neuts % (Manual) Lymphocytes % (Manual) Monocytes % (Manual) Seg Neutrophils # Seg Neutrophils # Man Lymphocytes # (Manual) Monocytes # (Manual) PT INR ABG pH POC ABG pCO2 POC ABG pO2 ABG pO2 ABG HCO3 ABG O2 Saturation ABG Base Excess ABG Hemoglobin ABG Oxyhemoglobin ABG Sodium ABG Potassium ABG Chloride ABG Glucose Oxyhemoglobin Sodium Potassium Chloride Carbon Dioxide BUN 85 H Creatinine 11.5 H Glucose 132 H POC Glucose 121 H Lactic Acid Calcium 8.2 L Phosphorus Magnesium 2.40 H Total Bilirubin 3.80 H AST 70 H ALT Alkaline Phosphatase 176 H Total Protein 5.0 L Albumin 2.9 L Triglycerides Arterial Blood Glucose Arterial Blood Ionized Calcium Digoxin Crossmatch 12/28/20 12/28/20 12/28/20 11:34 15:00 17:35 WBC RBC Hgb Hct MCV MCHC RDW Plt Count Lymph % (Auto) [place] % (Auto) Eos % (Auto) Lymph # (Auto) [place] # (Auto) Eos # (Auto) Seg Neutrophils % Seg Neuts % (Manual) Lymphocytes % (Manual) Monocytes % (Manual) Seg Neutrophils # Seg Neutrophils # Man Lymphocytes # (Manual) Monocytes # (Manual) PT INR ABG pH 7.461 H POC ABG pCO2 POC ABG pO2 72.2 L ABG pO2 ABG HCO3 ABG O2 Saturation ABG Base Excess ABG Hemoglobin 8.2 L ABG Oxyhemoglobin 93.6 L ABG Sodium 134.1 L ABG Potassium 3.2 L ABG Chloride ABG Glucose 135 H Oxyhemoglobin Sodium Potassium Chloride Carbon Dioxide BUN Creatinine Glucose POC Glucose 137 H 144 H Lactic Acid Calcium Phosphorus Magnesium Total Bilirubin AST ALT Alkaline Phosphatase Total Protein Albumin Triglycerides Arterial Blood Glucose 135 H Arterial Blood Ionized Calcium 4.4 L Digoxin Crossmatch 12/28/20 12/28/20 12/29/20 19:44 Unknown 00:21 WBC RBC Hgb Hct MCV MCHC RDW Plt Count Lymph % (Auto) [place] % (Auto) Eos % (Auto) Lymph # (Auto) [place] # (Auto) Eos # (Auto) Seg Neutrophils % Seg Neuts % (Manual) Lymphocytes % (Manual) Monocytes % (Manual) Seg Neutrophils # Seg Neutrophils # Man Lymphocytes # (Manual) Monocytes # (Manual) PT INR ABG pH 7.474 H POC ABG pCO2 POC ABG pO2 ABG pO2 ABG HCO3 ABG O2 Saturation ABG Base Excess ABG Hemoglobin 7.8 L ABG Oxyhemoglobin ABG Sodium 133.2 L ABG Potassium ABG Chloride ABG Glucose 139 H Oxyhemoglobin Sodium 135 L Potassium Chloride 96.6 L Carbon Dioxide BUN 47 H Creatinine 7.4 H Glucose 130 H POC Glucose 142 H Lactic Acid Calcium 8.3 L Phosphorus Magnesium Total Bilirubin AST ALT Alkaline Phosphatase Total Protein Albumin Triglycerides Arterial Blood Glucose 139 H Arterial Blood Ionized Calcium 4.3 L Digoxin Crossmatch 12/29/20 12/29/20 12/29/20 05:16 05:16 05:26 WBC RBC 2.53 L Hgb 7.7 L Hct 22.8 L MCV MCHC RDW 17.0 H Plt Count 130 L Lymph % (Auto) [place] % (Auto) Eos % (Auto) Lymph # (Auto) [place] # (Auto) Eos # (Auto) Seg Neutrophils % Seg Neuts % (Manual) 79.0 H Lymphocytes % (Manual) 9.0 L Monocytes % (Manual) Seg Neutrophils # Seg Neutrophils # Man Lymphocytes # (Manual) 0.6 L Monocytes # (Manual) PT INR ABG pH POC ABG pCO2 POC ABG pO2 ABG pO2 ABG HCO3 ABG O2 Saturation ABG Base Excess ABG Hemoglobin ABG Oxyhemoglobin ABG Sodium ABG Potassium ABG Chloride ABG Glucose Oxyhemoglobin Sodium Potassium 3.4 L Chloride 96.6 L Carbon Dioxide BUN 59 H Creatinine 8.3 H Glucose 127 H POC Glucose 141 H Lactic Acid Calcium 8.2 L Phosphorus Magnesium Total Bilirubin 3.00 H AST 88 H ALT Alkaline Phosphatase 188 H Total Protein 5.1 L Albumin 2.8 L Triglycerides Arterial Blood Glucose Arterial Blood Ionized Calcium Digoxin Crossmatch 12/29/20 12/29/20 12/29/20 11:33 17:29 23:22 WBC RBC Hgb Hct MCV MCHC RDW Plt Count Lymph % (Auto) [place] % (Auto) Eos % (Auto) Lymph # (Auto) [place] # (Auto) Eos # (Auto) Seg Neutrophils % Seg Neuts % (Manual) Lymphocytes % (Manual) Monocytes % (Manual) Seg Neutrophils # Seg Neutrophils # Man Lymphocytes # (Manual) Monocytes # (Manual) PT INR ABG pH POC ABG pCO2 POC ABG pO2 ABG pO2 ABG HCO3 ABG O2 Saturation ABG Base Excess ABG Hemoglobin ABG Oxyhemoglobin ABG Sodium ABG Potassium ABG Chloride ABG Glucose Oxyhemoglobin Sodium Potassium Chloride Carbon Dioxide BUN Creatinine Glucose POC Glucose 144 H 130 H 117 H Lactic Acid Calcium Phosphorus Magnesium Total Bilirubin AST ALT Alkaline Phosphatase Total Protein Albumin Triglycerides Arterial Blood Glucose Arterial Blood Ionized Calcium Digoxin Crossmatch 12/30/20 12/30/20 12/30/20 05:23 08:15 09:00 WBC RBC Hgb Hct MCV MCHC RDW Plt Count Lymph % (Auto) [place] % (Auto) Eos % (Auto) Lymph # (Auto) [place] # (Auto) Eos # (Auto) Seg Neutrophils % Seg Neuts % (Manual) Lymphocytes % (Manual) Monocytes % (Manual) Seg Neutrophils # Seg Neutrophils # Man Lymphocytes # (Manual) Monocytes # (Manual) PT INR ABG pH POC ABG pCO2 POC ABG pO2 ABG pO2 ABG HCO3 ABG O2 Saturation ABG Base Excess ABG Hemoglobin ABG Oxyhemoglobin ABG Sodium ABG Potassium ABG Chloride ABG Glucose Oxyhemoglobin Sodium 135 L Potassium Chloride 95.9 L Carbon Dioxide BUN 85 H Creatinine 10.6 H Glucose 128 H POC Glucose 135 H 127 H Lactic Acid Calcium 8.3 L Phosphorus Magnesium Total Bilirubin 2.40 H AST 85 H ALT Alkaline Phosphatase 216 H Total Protein 5.3 L Albumin 2.6 L Triglycerides 155 H Arterial Blood Glucose Arterial Blood Ionized Calcium Digoxin Crossmatch 12/30/20 12/30/20 12/30/20 09:00 11:53 15:49 WBC RBC 2.61 L Hgb 7.8 L Hct 23.7 L MCV MCHC RDW 17.3 H Plt Count Lymph % (Auto) [place] % (Auto) Eos % (Auto) Lymph # (Auto) [place] # (Auto) Eos # (Auto) Seg Neutrophils % Seg Neuts % (Manual) Lymphocytes % (Manual) Monocytes % (Manual) Seg Neutrophils # Seg Neutrophils # Man Lymphocytes # (Manual) Monocytes # (Manual) PT INR ABG pH POC ABG pCO2 POC ABG pO2 ABG pO2 ABG HCO3 ABG O2 Saturation ABG Base Excess ABG Hemoglobin ABG Oxyhemoglobin ABG Sodium ABG Potassium ABG Chloride ABG Glucose Oxyhemoglobin Sodium Potassium Chloride Carbon Dioxide BUN Creatinine Glucose POC Glucose 155 H 146 H Lactic Acid Calcium Phosphorus Magnesium Total Bilirubin AST ALT Alkaline Phosphatase Total Protein Albumin Triglycerides Arterial Blood Glucose Arterial Blood Ionized Calcium Digoxin Crossmatch 12/30/20 12/30/20 12/31/20 17:53 23:45 03:56 WBC RBC Hgb Hct MCV MCHC RDW Plt Count Lymph % (Auto) [place] % (Auto) Eos % (Auto) Lymph # (Auto) [place] # (Auto) Eos # (Auto) Seg Neutrophils % Seg Neuts % (Manual) Lymphocytes % (Manual) Monocytes % (Manual) Seg Neutrophils # Seg Neutrophils # Man Lymphocytes # (Manual) Monocytes # (Manual) PT INR ABG pH POC ABG pCO2 POC ABG pO2 49.4 L ABG pO2 ABG HCO3 ABG O2 Saturation ABG Base Excess ABG Hemoglobin 10.3 L ABG Oxyhemoglobin 84.2 L ABG Sodium 133.1 L ABG Potassium ABG Chloride ABG Glucose 173 H Oxyhemoglobin Sodium Potassium Chloride Carbon Dioxide BUN Creatinine Glucose POC Glucose 139 H 173 H Lactic Acid Calcium Phosphorus Magnesium Total Bilirubin AST ALT Alkaline Phosphatase Total Protein Albumin Triglycerides Arterial Blood Glucose 173 H Arterial Blood Ionized Calcium Digoxin Crossmatch 12/31/20 12/31/20 12/31/20 05:07 06:51 06:51 WBC 20.3 H RBC 3.32 L Hgb 9.8 L Hct 30.3 L D MCV MCHC RDW 17.3 H Plt Count Lymph % (Auto) [place] % (Auto) Eos % (Auto) Lymph # (Auto) [place] # (Auto) Eos # (Auto) Seg Neutrophils % Seg Neuts % (Manual) 87.0 H Lymphocytes % (Manual) 10.0 L Monocytes % (Manual) Seg Neutrophils # Seg Neutrophils # Man 17.7 H Lymphocytes # (Manual) Monocytes # (Manual) PT INR ABG pH POC ABG pCO2 POC ABG pO2 ABG pO2 ABG HCO3 ABG O2 Saturation ABG Base Excess ABG Hemoglobin ABG Oxyhemoglobin ABG Sodium ABG Potassium ABG Chloride ABG Glucose Oxyhemoglobin Sodium Potassium 5.2 H D Chloride Carbon Dioxide BUN 62 H Creatinine 8.4 H Glucose 116 H POC Glucose 120 H Lactic Acid Calcium Phosphorus Magnesium 1.60 L Total Bilirubin AST ALT Alkaline Phosphatase Total Protein Albumin Triglycerides Arterial Blood Glucose Arterial Blood Ionized Calcium Digoxin Crossmatch 12/31/20 12/31/20 12/31/20 09:38 12:19 12:22 WBC RBC Hgb Hct MCV MCHC RDW Plt Count Lymph % (Auto) [place] % (Auto) Eos % (Auto) Lymph # (Auto) [place] # (Auto) Eos # (Auto) Seg Neutrophils % Seg Neuts % (Manual) Lymphocytes % (Manual) Monocytes % (Manual) Seg Neutrophils # Seg Neutrophils # Man Lymphocytes # (Manual) Monocytes # (Manual) PT INR ABG pH POC ABG pCO2 POC ABG pO2 ABG pO2 354.0 H ABG HCO3 ABG O2 Saturation 99.6 H ABG Base Excess ABG Hemoglobin 9.1 L ABG Oxyhemoglobin ABG Sodium ABG Potassium ABG Chloride ABG Glucose Oxyhemoglobin Sodium Potassium 5.2 H Chloride Carbon Dioxide BUN Creatinine Glucose POC Glucose 132 H Lactic Acid Calcium Phosphorus Magnesium Total Bilirubin AST ALT Alkaline Phosphatase Total Protein Albumin Triglycerides Arterial Blood Glucose Arterial Blood Ionized Calcium Digoxin Crossmatch 12/31/20 01/01/21 01/01/21 23:23 03:03 05:04 WBC RBC Hgb Hct MCV MCHC RDW Plt Count Lymph % (Auto) [place] % (Auto) Eos % (Auto) Lymph # (Auto) [place] # (Auto) Eos # (Auto) Seg Neutrophils % Seg Neuts % (Manual) Lymphocytes % (Manual) Monocytes % (Manual) Seg Neutrophils # Seg Neutrophils # Man Lymphocytes # (Manual) Monocytes # (Manual) PT INR ABG pH POC ABG pCO2 POC ABG pO2 79.6 L ABG pO2 ABG HCO3 ABG O2 Saturation ABG Base Excess ABG Hemoglobin 9.2 L ABG Oxyhemoglobin ABG Sodium 131.6 L ABG Potassium 5.8 H ABG Chloride ABG Glucose 177 H Oxyhemoglobin Sodium Potassium Chloride Carbon Dioxide BUN Creatinine Glucose POC Glucose 174 H 167 H Lactic Acid Calcium Phosphorus Magnesium Total Bilirubin AST ALT Alkaline Phosphatase Total Protein Albumin Triglycerides Arterial Blood Glucose 177 H Arterial Blood Ionized Calcium Digoxin Crossmatch 01/01/21 01/01/21 01/01/21 07:31 07:31 11:31 WBC 26.1 H RBC 2.95 L Hgb 8.6 L Hct 27.1 L MCV MCHC RDW 18.2 H Plt Count Lymph % (Auto) [place] % (Auto) Eos % (Auto) Lymph # (Auto) [place] # (Auto) Eos # (Auto) Seg Neutrophils % Seg Neuts % (Manual) 96.0 H Lymphocytes % (Manual) 4.0 L Monocytes % (Manual) Seg Neutrophils # Seg Neutrophils # Man 25.1 H Lymphocytes # (Manual) 1.0 L Monocytes # (Manual) PT INR ABG pH POC ABG pCO2 POC ABG pO2 ABG pO2 ABG HCO3 ABG O2 Saturation ABG Base Excess ABG Hemoglobin ABG Oxyhemoglobin ABG Sodium ABG Potassium ABG Chloride ABG Glucose Oxyhemoglobin Sodium Potassium 6.0 H Chloride Carbon Dioxide 21 L BUN 89 H Creatinine 10.5 H Glucose 179 H POC Glucose Lactic Acid Calcium Phosphorus Magnesium Total Bilirubin AST ALT Alkaline Phosphatase Total Protein Albumin Triglycerides Arterial Blood Glucose Arterial Blood Ionized Calcium Digoxin Crossmatch See Detail 01/01/21 01/01/21 01/01/21 11:51 12:45 16:52 WBC RBC Hgb Hct MCV MCHC RDW Plt Count Lymph % (Auto) [place] % (Auto) Eos % (Auto) Lymph # (Auto) [place] # (Auto) Eos # (Auto) Seg Neutrophils % Seg Neuts % (Manual) Lymphocytes % (Manual) Monocytes % (Manual) Seg Neutrophils # Seg Neutrophils # Man Lymphocytes # (Manual) Monocytes # (Manual) PT 16.9 H INR 1.39 H ABG pH POC ABG pCO2 POC ABG pO2 ABG pO2 ABG HCO3 ABG O2 Saturation ABG Base Excess ABG Hemoglobin ABG Oxyhemoglobin ABG Sodium ABG Potassium ABG Chloride ABG Glucose Oxyhemoglobin Sodium Potassium Chloride Carbon Dioxide BUN Creatinine Glucose POC Glucose 157 H 177 H Lactic Acid Calcium Phosphorus Magnesium Total Bilirubin AST ALT Alkaline Phosphatase Total Protein Albumin Triglycerides Arterial Blood Glucose Arterial Blood Ionized Calcium Digoxin Crossmatch 01/01/21 01/01/21 01/01/21 17:58 17:58 20:12 WBC 26.9 H RBC 3.14 L Hgb 9.3 L Hct 29.6 L MCV MCHC RDW 17.5 H Plt Count Lymph % (Auto) [place] % (Auto) Eos % (Auto) Lymph # (Auto) [place] # (Auto) Eos # (Auto) Seg Neutrophils % Seg Neuts % (Manual) 84.0 H Lymphocytes % (Manual) 4.0 L Monocytes % (Manual) 12.0 H Seg Neutrophils # Seg Neutrophils # Man 22.6 H Lymphocytes # (Manual) 1.1 L Monocytes # (Manual) 3.2 H PT INR ABG pH POC ABG pCO2 POC ABG pO2 ABG pO2 ABG HCO3 ABG O2 Saturation ABG Base Excess ABG Hemoglobin ABG Oxyhemoglobin ABG Sodium ABG Potassium ABG Chloride ABG Glucose Oxyhemoglobin Sodium 136 L Potassium 6.2 H* Chloride Carbon Dioxide 21 L BUN 92 H Creatinine 10.8 H Glucose 171 H POC Glucose 288 H Lactic Acid Calcium Phosphorus Magnesium Total Bilirubin 2.10 H AST 223 H ALT 100 H Alkaline Phosphatase 206 H Total Protein 4.8 L Albumin 1.9 L Triglycerides Arterial Blood Glucose Arterial Blood Ionized Calcium Digoxin Crossmatch 01/02/21 01/02/21 01/02/21 00:12 00:45 03:05 WBC RBC Hgb Hct MCV MCHC RDW Plt Count Lymph % (Auto) [place] % (Auto) Eos % (Auto) Lymph # (Auto) [place] # (Auto) Eos # (Auto) Seg Neutrophils % Seg Neuts % (Manual) Lymphocytes % (Manual) Monocytes % (Manual) Seg Neutrophils # Seg Neutrophils # Man Lymphocytes # (Manual) Monocytes # (Manual) PT INR ABG pH POC ABG pCO2 POC ABG pO2 81.8 L ABG pO2 ABG HCO3 ABG O2 Saturation ABG Base Excess ABG Hemoglobin 8.0 L ABG Oxyhemoglobin ABG Sodium 129.8 L ABG Potassium 5.4 H ABG Chloride ABG Glucose 257 H Oxyhemoglobin Sodium 136 L Potassium 5.8 H Chloride 96.6 L Carbon Dioxide BUN 95 H Creatinine 11.2 H Glucose 238 H POC Glucose 223 H Lactic Acid Calcium Phosphorus Magnesium Total Bilirubin AST ALT Alkaline Phosphatase Total Protein Albumin Triglycerides Arterial Blood Glucose 257 H Arterial Blood Ionized Calcium 4.0 L Digoxin Crossmatch 01/02/21 01/02/21 01/02/21 06:25 08:00 08:00 WBC 17.5 H RBC 2.31 L Hgb 6.7 L Hct 22.1 L D MCV 96 H MCHC 30 L RDW 18.4 H Plt Count Lymph % (Auto) [place] % (Auto) Eos % (Auto) Lymph # (Auto) [place] # (Auto) Eos # (Auto) Seg Neutrophils % Seg Neuts % (Manual) Lymphocytes % (Manual) Monocytes % (Manual) Seg Neutrophils # Seg Neutrophils # Man Lymphocytes # (Manual) Monocytes # (Manual) PT INR ABG pH POC ABG pCO2 POC ABG pO2 ABG pO2 ABG HCO3 ABG O2 Saturation ABG Base Excess ABG Hemoglobin ABG Oxyhemoglobin ABG Sodium ABG Potassium ABG Chloride ABG Glucose Oxyhemoglobin Sodium 134 L Potassium 5.3 H Chloride 92.9 L Carbon Dioxide BUN 101 H Creatinine 10.9 H Glucose 560 H* POC Glucose 239 H Lactic Acid Calcium 7.6 L Phosphorus 6.50 H Magnesium Total Bilirubin AST ALT Alkaline Phosphatase Total Protein Albumin Triglycerides Arterial Blood Glucose Arterial Blood Ionized Calcium Digoxin Crossmatch 01/02/21 01/02/21 01/02/21 11:26 15:00 17:57 WBC RBC Hgb Hct MCV MCHC RDW Plt Count Lymph % (Auto) [place] % (Auto) Eos % (Auto) Lymph # (Auto) [place] # (Auto) Eos # (Auto) Seg Neutrophils % Seg Neuts % (Manual) Lymphocytes % (Manual) Monocytes % (Manual) Seg Neutrophils # Seg Neutrophils # Man Lymphocytes # (Manual) Monocytes # (Manual) PT INR ABG pH POC ABG pCO2 POC ABG pO2 ABG pO2 ABG HCO3 ABG O2 Saturation ABG Base Excess ABG Hemoglobin ABG Oxyhemoglobin ABG Sodium ABG Potassium ABG Chloride ABG Glucose Oxyhemoglobin Sodium Potassium Chloride Carbon Dioxide BUN Creatinine Glucose 241 H POC Glucose 205 H 272 H Lactic Acid Calcium Phosphorus Magnesium Total Bilirubin AST ALT Alkaline Phosphatase Total Protein Albumin Triglycerides Arterial Blood Glucose Arterial Blood Ionized Calcium Digoxin Crossmatch 01/02/21 01/02/21 01/03/21 23:25 23:43 03:45 WBC RBC Hgb Hct MCV MCHC RDW Plt Count Lymph % (Auto) [place] % (Auto) Eos % (Auto) Lymph # (Auto) [place] # (Auto) Eos # (Auto) Seg Neutrophils % Seg Neuts % (Manual) Lymphocytes % (Manual) Monocytes % (Manual) Seg Neutrophils # Seg Neutrophils # Man Lymphocytes # (Manual) Monocytes # (Manual) PT INR ABG pH POC ABG pCO2 48.3 H POC ABG pO2 134.4 H 79.7 L ABG pO2 ABG HCO3 ABG O2 Saturation ABG Base Excess ABG Hemoglobin 7.7 L 8.6 L ABG Oxyhemoglobin ABG Sodium 131.8 L 130.4 L ABG Potassium ABG Chloride 97.0 L ABG Glucose 218 H 238 H Oxyhemoglobin Sodium Potassium Chloride Carbon Dioxide BUN Creatinine Glucose POC Glucose 218 H Lactic Acid Calcium Phosphorus Magnesium Total Bilirubin AST ALT Alkaline Phosphatase Total Protein Albumin Triglycerides Arterial Blood Glucose 218 H 238 H Arterial Blood Ionized Calcium 4.1 L 4.0 L Digoxin Crossmatch 01/03/21 01/03/21 01/03/21 04:37 04:37 05:39 WBC 15.2 H RBC 2.38 L Hgb 7.3 L Hct 21.6 L MCV MCHC RDW 16.6 H Plt Count Lymph % (Auto) [place] % (Auto) Eos % (Auto) Lymph # (Auto) [place] # (Auto) Eos # (Auto) Seg Neutrophils % Seg Neuts % (Manual) Lymphocytes % (Manual) Monocytes % (Manual) Seg Neutrophils # Seg Neutrophils # Man Lymphocytes # (Manual) Monocytes # (Manual) PT INR ABG pH POC ABG pCO2 POC ABG pO2 ABG pO2 ABG HCO3 ABG O2 Saturation ABG Base Excess ABG Hemoglobin ABG Oxyhemoglobin ABG Sodium ABG Potassium ABG Chloride ABG Glucose Oxyhemoglobin Sodium 136 L Potassium Chloride 94.5 L Carbon Dioxide BUN 69 H Creatinine 8.0 H Glucose 219 H POC Glucose 222 H Lactic Acid Calcium 7.8 L Phosphorus 4.80 H D Magnesium Total Bilirubin AST ALT Alkaline Phosphatase Total Protein Albumin Triglycerides Arterial Blood Glucose Arterial Blood Ionized Calcium Digoxin Crossmatch 01/03/21 01/03/21 01/03/21 11:29 18:49 23:37 WBC RBC Hgb Hct MCV MCHC RDW Plt Count Lymph % (Auto) [place] % (Auto) Eos % (Auto) Lymph # (Auto) [place] # (Auto) Eos # (Auto) Seg Neutrophils % Seg Neuts % (Manual) Lymphocytes % (Manual) Monocytes % (Manual) Seg Neutrophils # Seg Neutrophils # Man Lymphocytes # (Manual) Monocytes # (Manual) PT INR ABG pH POC ABG pCO2 POC ABG pO2 ABG pO2 ABG HCO3 ABG O2 Saturation ABG Base Excess ABG Hemoglobin ABG Oxyhemoglobin ABG Sodium ABG Potassium ABG Chloride ABG Glucose Oxyhemoglobin Sodium Potassium Chloride Carbon Dioxide BUN Creatinine Glucose POC Glucose 232 H 129 H 140 H Lactic Acid Calcium Phosphorus Magnesium Total Bilirubin AST ALT Alkaline Phosphatase Total Protein Albumin Triglycerides Arterial Blood Glucose Arterial Blood Ionized Calcium Digoxin Crossmatch 01/04/21 01/04/21 01/04/21 03:22 04:38 04:38 WBC 11.1 H RBC 2.89 L Hgb 8.9 L Hct 26.2 L MCV MCHC RDW 16.1 H Plt Count Lymph % (Auto) [place] % (Auto) Eos % (Auto) Lymph # (Auto) [place] # (Auto) Eos # (Auto) Seg Neutrophils % Seg Neuts % (Manual) Lymphocytes % (Manual) Monocytes % (Manual) Seg Neutrophils # Seg Neutrophils # Man Lymphocytes # (Manual) Monocytes # (Manual) PT INR ABG pH POC ABG pCO2 POC ABG pO2 82.3 L ABG pO2 ABG HCO3 ABG O2 Saturation ABG Base Excess ABG Hemoglobin 8.9 L ABG Oxyhemoglobin ABG Sodium 130.5 L ABG Potassium ABG Chloride ABG Glucose 124 H Oxyhemoglobin Sodium Potassium Chloride 95.5 L Carbon Dioxide BUN 87 H Creatinine 9.7 H Glucose 118 H POC Glucose Lactic Acid Calcium 7.7 L Phosphorus Magnesium Total Bilirubin AST ALT Alkaline Phosphatase Total Protein Albumin Triglycerides Arterial Blood Glucose 124 H Arterial Blood Ionized Calcium 3.5 L Digoxin Crossmatch 01/04/21 01/04/21 01/04/21 05:39 12:04 18:04 WBC RBC Hgb Hct MCV MCHC RDW Plt Count Lymph % (Auto) [place] % (Auto) Eos % (Auto) Lymph # (Auto) [place] # (Auto) Eos # (Auto) Seg Neutrophils % Seg Neuts % (Manual) Lymphocytes % (Manual) Monocytes % (Manual) Seg Neutrophils # Seg Neutrophils # Man Lymphocytes # (Manual) Monocytes # (Manual) PT INR ABG pH POC ABG pCO2 POC ABG pO2 ABG pO2 ABG HCO3 ABG O2 Saturation ABG Base Excess ABG Hemoglobin ABG Oxyhemoglobin ABG Sodium ABG Potassium ABG Chloride ABG Glucose Oxyhemoglobin Sodium Potassium Chloride Carbon Dioxide BUN Creatinine Glucose POC Glucose 134 H 125 H 131 H Lactic Acid Calcium Phosphorus Magnesium Total Bilirubin AST ALT Alkaline Phosphatase Total Protein Albumin Triglycerides Arterial Blood Glucose Arterial Blood Ionized Calcium Digoxin Crossmatch 01/04/21 01/05/21 01/05/21 23:41 03:23 04:49 WBC RBC Hgb Hct MCV MCHC RDW Plt Count Lymph % (Auto) [place] % (Auto) Eos % (Auto) Lymph # (Auto) [place] # (Auto) Eos # (Auto) Seg Neutrophils % Seg Neuts % (Manual) Lymphocytes % (Manual) Monocytes % (Manual) Seg Neutrophils # Seg Neutrophils # Man Lymphocytes # (Manual) Monocytes # (Manual) PT INR ABG pH POC ABG pCO2 POC ABG pO2 62.8 L ABG pO2 ABG HCO3 ABG O2 Saturation ABG Base Excess ABG Hemoglobin 9.5 L ABG Oxyhemoglobin 92.0 L ABG Sodium 130.1 L ABG Potassium ABG Chloride ABG Glucose 148 H Oxyhemoglobin Sodium Potassium Chloride 96.9 L Carbon Dioxide BUN 57 H Creatinine 6.7 H Glucose 135 H POC Glucose 132 H Lactic Acid Calcium 8.0 L Phosphorus Magnesium Total Bilirubin AST ALT Alkaline Phosphatase Total Protein Albumin Triglycerides Arterial Blood Glucose 148 H Arterial Blood Ionized Calcium 4.1 L Digoxin Crossmatch 01/05/21 01/05/21 01/05/21 05:04 11:48 12:39 WBC RBC 3.03 L Hgb 9.3 L Hct 27.6 L MCV MCHC RDW 16.5 H Plt Count Lymph % (Auto) [place] % (Auto) Eos % (Auto) Lymph # (Auto) [place] # (Auto) Eos # (Auto) Seg Neutrophils % Seg Neuts % (Manual) Lymphocytes % (Manual) Monocytes % (Manual) Seg Neutrophils # Seg Neutrophils # Man Lymphocytes # (Manual) Monocytes # (Manual) PT INR ABG pH POC ABG pCO2 POC ABG pO2 ABG pO2 ABG HCO3 ABG O2 Saturation ABG Base Excess ABG Hemoglobin ABG Oxyhemoglobin ABG Sodium ABG Potassium ABG Chloride ABG Glucose Oxyhemoglobin Sodium Potassium Chloride Carbon Dioxide BUN Creatinine Glucose POC Glucose 147 H 162 H Lactic Acid Calcium Phosphorus Magnesium Total Bilirubin AST ALT Alkaline Phosphatase Total Protein Albumin Triglycerides Arterial Blood Glucose Arterial Blood Ionized Calcium Digoxin Crossmatch 01/05/21 01/05/21 01/06/21 17:50 23:32 04:15 WBC RBC Hgb Hct MCV MCHC RDW Plt Count Lymph % (Auto) [place] % (Auto) Eos % (Auto) Lymph # (Auto) [place] # (Auto) Eos # (Auto) Seg Neutrophils % Seg Neuts % (Manual) Lymphocytes % (Manual) Monocytes % (Manual) Seg Neutrophils # Seg Neutrophils # Man Lymphocytes # (Manual) Monocytes # (Manual) PT INR ABG pH POC ABG pCO2 POC ABG pO2 ABG pO2 191.0 H ABG HCO3 ABG O2 Saturation 99.2 H ABG Base Excess ABG Hemoglobin 9.0 L ABG Oxyhemoglobin ABG Sodium ABG Potassium ABG Chloride ABG Glucose Oxyhemoglobin Sodium Potassium Chloride Carbon Dioxide BUN Creatinine Glucose POC Glucose 155 H 115 H Lactic Acid Calcium Phosphorus Magnesium Total Bilirubin AST ALT Alkaline Phosphatase Total Protein Albumin Triglycerides Arterial Blood Glucose Arterial Blood Ionized Calcium Digoxin Crossmatch 01/06/21 01/06/21 01/06/21 04:45 05:56 07:03 WBC RBC 2.95 L Hgb 9.1 L Hct 26.8 L MCV MCHC RDW 16.8 H Plt Count Lymph % (Auto) [place] % (Auto) Eos % (Auto) Lymph # (Auto) [place] # (Auto) Eos # (Auto) Seg Neutrophils % Seg Neuts % (Manual) Lymphocytes % (Manual) Monocytes % (Manual) Seg Neutrophils # Seg Neutrophils # Man Lymphocytes # (Manual) Monocytes # (Manual) PT INR ABG pH POC ABG pCO2 POC ABG pO2 ABG pO2 ABG HCO3 ABG O2 Saturation ABG Base Excess ABG Hemoglobin ABG Oxyhemoglobin ABG Sodium ABG Potassium ABG Chloride ABG Glucose Oxyhemoglobin Sodium 135 L Potassium Chloride 95.9 L Carbon Dioxide BUN 82 H Creatinine 8.7 H Glucose 127 H POC Glucose 136 H Lactic Acid Calcium 8.3 L Phosphorus Magnesium Total Bilirubin AST ALT Alkaline Phosphatase Total Protein Albumin Triglycerides Arterial Blood Glucose Arterial Blood Ionized Calcium Digoxin Crossmatch 01/06/21 01/06/21 01/06/21 07:10 11:04 13:38 WBC RBC Hgb Hct MCV MCHC RDW Plt Count Lymph % (Auto) [place] % (Auto) Eos % (Auto) Lymph # (Auto) [place] # (Auto) Eos # (Auto) Seg Neutrophils % Seg Neuts % (Manual) Lymphocytes % (Manual) Monocytes % (Manual) Seg Neutrophils # Seg Neutrophils # Man Lymphocytes # (Manual) Monocytes # (Manual) PT INR ABG pH POC ABG pCO2 POC ABG pO2 ABG pO2 ABG HCO3 ABG O2 Saturation ABG Base Excess ABG Hemoglobin ABG Oxyhemoglobin ABG Sodium ABG Potassium ABG Chloride ABG Glucose Oxyhemoglobin Sodium Potassium Chloride Carbon Dioxide BUN Creatinine Glucose POC Glucose 178 H 155 H Lactic Acid Calcium Phosphorus Magnesium Total Bilirubin AST ALT Alkaline Phosphatase Total Protein Albumin Triglycerides Arterial Blood Glucose Arterial Blood Ionized Calcium Digoxin Crossmatch See Detail 01/06/21 01/06/21 01/07/21 17:35 22:21 03:07 WBC RBC Hgb Hct MCV MCHC RDW Plt Count Lymph % (Auto) [place] % (Auto) Eos % (Auto) Lymph # (Auto) [place] # (Auto) Eos # (Auto) Seg Neutrophils % Seg Neuts % (Manual) Lymphocytes % (Manual) Monocytes % (Manual) Seg Neutrophils # Seg Neutrophils # Man Lymphocytes # (Manual) Monocytes # (Manual) PT INR ABG pH POC ABG pCO2 POC ABG pO2 ABG pO2 ABG HCO3 ABG O2 Saturation ABG Base Excess ABG Hemoglobin 11.9 L ABG Oxyhemoglobin ABG Sodium 135.6 L ABG Potassium ABG Chloride ABG Glucose 181 H Oxyhemoglobin Sodium Potassium Chloride Carbon Dioxide BUN Creatinine Glucose POC Glucose 138 H 202 H Lactic Acid Calcium Phosphorus Magnesium Total Bilirubin AST ALT Alkaline Phosphatase Total Protein Albumin Triglycerides Arterial Blood Glucose 181 H Arterial Blood Ionized Calcium 4.3 L Digoxin Crossmatch 01/07/21 01/07/21 01/07/21 04:50 05:21 08:37 WBC 12.4 H RBC Hgb 11.1 L Hct 33.3 L D MCV MCHC RDW 17.0 H Plt Count Lymph % (Auto) 3.2 L [place] % (Auto) 9.4 H Eos % (Auto) Lymph # (Auto) 0.4 L [place] # (Auto) 1.2 H Eos # (Auto) Seg Neutrophils % 86.6 H Seg Neuts % (Manual) Lymphocytes % (Manual) Monocytes % (Manual) Seg Neutrophils # 10.7 H Seg Neutrophils # Man Lymphocytes # (Manual) Monocytes # (Manual) PT INR ABG pH POC ABG pCO2 POC ABG pO2 ABG pO2 ABG HCO3 ABG O2 Saturation ABG Base Excess ABG Hemoglobin ABG Oxyhemoglobin ABG Sodium ABG Potassium ABG Chloride ABG Glucose Oxyhemoglobin Sodium Potassium Chloride Carbon Dioxide BUN 60 H Creatinine 6.3 H Glucose 154 H POC Glucose 177 H Lactic Acid Calcium 8.3 L Phosphorus Magnesium Total Bilirubin AST ALT Alkaline Phosphatase Total Protein Albumin Triglycerides Arterial Blood Glucose Arterial Blood Ionized Calcium Digoxin Crossmatch 01/07/21 01/07/21 01/07/21 11:21 12:19 17:11 WBC RBC Hgb Hct MCV MCHC RDW Plt Count Lymph % (Auto) [place] % (Auto) Eos % (Auto) Lymph # (Auto) [place] # (Auto) Eos # (Auto) Seg Neutrophils % Seg Neuts % (Manual) Lymphocytes % (Manual) Monocytes % (Manual) Seg Neutrophils # Seg Neutrophils # Man Lymphocytes # (Manual) Monocytes # (Manual) PT INR ABG pH POC ABG pCO2 POC ABG pO2 ABG pO2 ABG HCO3 ABG O2 Saturation ABG Base Excess ABG Hemoglobin ABG Oxyhemoglobin ABG Sodium ABG Potassium ABG Chloride ABG Glucose Oxyhemoglobin Sodium Potassium Chloride Carbon Dioxide BUN Creatinine Glucose POC Glucose 144 H 137 H 119 H Lactic Acid Calcium Phosphorus Magnesium Total Bilirubin AST ALT Alkaline Phosphatase Total Protein Albumin Triglycerides Arterial Blood Glucose Arterial Blood Ionized Calcium Digoxin Crossmatch 01/07/21 01/07/21 01/08/21 17:14 23:39 04:34 WBC RBC Hgb Hct MCV MCHC RDW Plt Count Lymph % (Auto) [place] % (Auto) Eos % (Auto) Lymph # (Auto) [place] # (Auto) Eos # (Auto) Seg Neutrophils % Seg Neuts % (Manual) Lymphocytes % (Manual) Monocytes % (Manual) Seg Neutrophils # Seg Neutrophils # Man Lymphocytes # (Manual) Monocytes # (Manual) PT INR ABG pH 7.345 L POC ABG pCO2 POC ABG pO2 ABG pO2 67.4 L ABG HCO3 ABG O2 Saturation 94.3 L ABG Base Excess -3.9 L ABG Hemoglobin 8.9 L ABG Oxyhemoglobin ABG Sodium ABG Potassium ABG Chloride ABG Glucose Oxyhemoglobin 92.3 L Sodium Potassium Chloride Carbon Dioxide 20 L BUN 93 H Creatinine 8.8 H Glucose 120 H POC Glucose 129 H Lactic Acid Calcium Phosphorus Magnesium Total Bilirubin AST ALT Alkaline Phosphatase 133 H Total Protein 5.4 L Albumin 1.9 L Triglycerides Arterial Blood Glucose Arterial Blood Ionized Calcium Digoxin Crossmatch 01/08/21 01/08/21 01/08/21 05:26 11:38 17:19 WBC RBC Hgb Hct MCV MCHC RDW Plt Count Lymph % (Auto) [place] % (Auto) Eos % (Auto) Lymph # (Auto) [place] # (Auto) Eos # (Auto) Seg Neutrophils % Seg Neuts % (Manual) Lymphocytes % (Manual) Monocytes % (Manual) Seg Neutrophils # Seg Neutrophils # Man Lymphocytes # (Manual) Monocytes # (Manual) PT INR ABG pH POC ABG pCO2 POC ABG pO2 ABG pO2 ABG HCO3 ABG O2 Saturation ABG Base Excess ABG Hemoglobin ABG Oxyhemoglobin ABG Sodium ABG Potassium ABG Chloride ABG Glucose Oxyhemoglobin Sodium Potassium Chloride Carbon Dioxide BUN Creatinine Glucose POC Glucose 125 H 146 H 136 H Lactic Acid Calcium Phosphorus Magnesium Total Bilirubin AST ALT Alkaline Phosphatase Total Protein Albumin Triglycerides Arterial Blood Glucose Arterial Blood Ionized Calcium Digoxin Crossmatch 01/08/21 01/09/21 01/09/21 23:52 05:13 05:21 WBC RBC Hgb Hct MCV MCHC RDW Plt Count Lymph % (Auto) [place] % (Auto) Eos % (Auto) Lymph # (Auto) [place] # (Auto) Eos # (Auto) Seg Neutrophils % Seg Neuts % (Manual) Lymphocytes % (Manual) Monocytes % (Manual) Seg Neutrophils # Seg Neutrophils # Man Lymphocytes # (Manual) Monocytes # (Manual) PT INR ABG pH POC ABG pCO2 POC ABG pO2 ABG pO2 ABG HCO3 ABG O2 Saturation ABG Base Excess ABG Hemoglobin ABG Oxyhemoglobin ABG Sodium ABG Potassium ABG Chloride ABG Glucose Oxyhemoglobin Sodium Potassium Chloride Carbon Dioxide 16 L BUN 123 H Creatinine 10.8 H Glucose 145 H POC Glucose 143 H 144 H Lactic Acid Calcium Phosphorus 5.00 H D Magnesium 2.40 H Total Bilirubin AST ALT Alkaline Phosphatase Total Protein Albumin Triglycerides Arterial Blood Glucose Arterial Blood Ionized Calcium Digoxin Crossmatch 01/09/21 01/09/21 01/09/21 12:08 17:20 23:56 WBC RBC Hgb Hct MCV MCHC RDW Plt Count Lymph % (Auto) [place] % (Auto) Eos % (Auto) Lymph # (Auto) [place] # (Auto) Eos # (Auto) Seg Neutrophils % Seg Neuts % (Manual) Lymphocytes % (Manual) Monocytes % (Manual) Seg Neutrophils # Seg Neutrophils # Man Lymphocytes # (Manual) Monocytes # (Manual) PT INR ABG pH POC ABG pCO2 POC ABG pO2 ABG pO2 ABG HCO3 ABG O2 Saturation ABG Base Excess ABG Hemoglobin ABG Oxyhemoglobin ABG Sodium ABG Potassium ABG Chloride ABG Glucose Oxyhemoglobin Sodium Potassium Chloride Carbon Dioxide BUN Creatinine Glucose POC Glucose 153 H 160 H 158 H Lactic Acid Calcium Phosphorus Magnesium Total Bilirubin AST ALT Alkaline Phosphatase Total Protein Albumin Triglycerides Arterial Blood Glucose Arterial Blood Ionized Calcium Digoxin Crossmatch 01/10/21 01/10/21 01/10/21 04:52 05:44 07:41 WBC RBC Hgb Hct MCV MCHC RDW Plt Count Lymph % (Auto) [place] % (Auto) Eos % (Auto) Lymph # (Auto) [place] # (Auto) Eos # (Auto) Seg Neutrophils % Seg Neuts % (Manual) Lymphocytes % (Manual) Monocytes % (Manual) Seg Neutrophils # Seg Neutrophils # Man Lymphocytes # (Manual) Monocytes # (Manual) PT INR ABG pH POC ABG pCO2 POC ABG pO2 ABG pO2 ABG HCO3 ABG O2 Saturation ABG Base Excess ABG Hemoglobin ABG Oxyhemoglobin ABG Sodium ABG Potassium ABG Chloride ABG Glucose Oxyhemoglobin Sodium 135 L Potassium 3.5 L D Chloride 95.0 L Carbon Dioxide 21 L BUN 93 H Creatinine 8.3 H Glucose 127 H POC Glucose 135 H 157 H Lactic Acid Calcium Phosphorus Magnesium Total Bilirubin AST ALT Alkaline Phosphatase Total Protein Albumin Triglycerides Arterial Blood Glucose Arterial Blood Ionized Calcium Digoxin Crossmatch 01/10/21 01/10/21 01/10/21 09:26 12:03 17:44 WBC 18.2 H RBC 3.14 L Hgb 9.7 L Hct 28.2 L MCV MCHC RDW 16.5 H Plt Count Lymph % (Auto) [place] % (Auto) Eos % (Auto) Lymph # (Auto) [place] # (Auto) Eos # (Auto) Seg Neutrophils % Seg Neuts % (Manual) 95.0 H Lymphocytes % (Manual) 3.0 L Monocytes % (Manual) Seg Neutrophils # Seg Neutrophils # Man 17.3 H Lymphocytes # (Manual) 0.5 L Monocytes # (Manual) PT INR ABG pH POC ABG pCO2 POC ABG pO2 ABG pO2 ABG HCO3 ABG O2 Saturation ABG Base Excess ABG Hemoglobin ABG Oxyhemoglobin ABG Sodium ABG Potassium ABG Chloride ABG Glucose Oxyhemoglobin Sodium Potassium Chloride Carbon Dioxide BUN Creatinine Glucose POC Glucose 163 H 171 H Lactic Acid Calcium Phosphorus Magnesium Total Bilirubin AST ALT Alkaline Phosphatase Total Protein Albumin Triglycerides Arterial Blood Glucose Arterial Blood Ionized Calcium Digoxin Crossmatch 01/10/21 01/11/21 01/11/21 23:50 05:18 05:18 WBC RBC Hgb Hct MCV MCHC RDW Plt Count Lymph % (Auto) [place] % (Auto) Eos % (Auto) Lymph # (Auto) [place] # (Auto) Eos # (Auto) Seg Neutrophils % Seg Neuts % (Manual) Lymphocytes % (Manual) Monocytes % (Manual) Seg Neutrophils # Seg Neutrophils # Man Lymphocytes # (Manual) Monocytes # (Manual) PT INR ABG pH POC ABG pCO2 POC ABG pO2 ABG pO2 ABG HCO3 ABG O2 Saturation ABG Base Excess ABG Hemoglobin ABG Oxyhemoglobin ABG Sodium ABG Potassium ABG Chloride ABG Glucose Oxyhemoglobin Sodium 136 L Potassium Chloride 94.6 L Carbon Dioxide 19 L BUN 145 H Creatinine 10.6 H Glucose 152 H POC Glucose 151 H Lactic Acid Calcium Phosphorus 6.00 H D Magnesium Total Bilirubin AST ALT Alkaline Phosphatase Total Protein Albumin Triglycerides Arterial Blood Glucose Arterial Blood Ionized Calcium Digoxin 0.8 L Crossmatch 01/11/21 01/11/21 01/11/21 05:18 05:19 11:28 WBC 17.4 H RBC 3.34 L Hgb 10.2 L Hct 29.7 L MCV MCHC RDW 15.9 H Plt Count Lymph % (Auto) [place] % (Auto) Eos % (Auto) Lymph # (Auto) [place] # (Auto) Eos # (Auto) Seg Neutrophils % Seg Neuts % (Manual) Lymphocytes % (Manual) Monocytes % (Manual) Seg Neutrophils # Seg Neutrophils # Man Lymphocytes # (Manual) Monocytes # (Manual) PT INR ABG pH POC ABG pCO2 POC ABG pO2 ABG pO2 ABG HCO3 ABG O2 Saturation ABG Base Excess ABG Hemoglobin ABG Oxyhemoglobin ABG Sodium ABG Potassium ABG Chloride ABG Glucose Oxyhemoglobin Sodium Potassium Chloride Carbon Dioxide BUN Creatinine Glucose POC Glucose 149 H 178 H Lactic Acid Calcium Phosphorus Magnesium Total Bilirubin AST ALT Alkaline Phosphatase Total Protein Albumin Triglycerides Arterial Blood Glucose Arterial Blood Ionized Calcium Digoxin Crossmatch 01/11/21 01/11/21 01/12/21 17:31 23:14 05:18 WBC RBC Hgb Hct MCV MCHC RDW Plt Count Lymph % (Auto) [place] % (Auto) Eos % (Auto) Lymph # (Auto) [place] # (Auto) Eos # (Auto) Seg Neutrophils % Seg Neuts % (Manual) Lymphocytes % (Manual) Monocytes % (Manual) Seg Neutrophils # Seg Neutrophils # Man Lymphocytes # (Manual) Monocytes # (Manual) PT INR ABG pH POC ABG pCO2 POC ABG pO2 ABG pO2 ABG HCO3 ABG O2 Saturation ABG Base Excess ABG Hemoglobin ABG Oxyhemoglobin ABG Sodium ABG Potassium ABG Chloride ABG Glucose Oxyhemoglobin Sodium Potassium Chloride Carbon Dioxide BUN Creatinine Glucose POC Glucose 158 H 145 H 148 H Lactic Acid Calcium Phosphorus Magnesium Total Bilirubin AST ALT Alkaline Phosphatase Total Protein Albumin Triglycerides Arterial Blood Glucose Arterial Blood Ionized Calcium Digoxin Crossmatch 01/12/21 01/12/21 01/12/21 06:50 10:45 13:34 WBC RBC Hgb Hct MCV MCHC RDW Plt Count Lymph % (Auto) [place] % (Auto) Eos % (Auto) Lymph # (Auto) [place] # (Auto) Eos # (Auto) Seg Neutrophils % Seg Neuts % (Manual) Lymphocytes % (Manual) Monocytes % (Manual) Seg Neutrophils # Seg Neutrophils # Man Lymphocytes # (Manual) Monocytes # (Manual) PT INR ABG pH POC ABG pCO2 POC ABG pO2 ABG pO2 ABG HCO3 ABG O2 Saturation ABG Base Excess ABG Hemoglobin ABG Oxyhemoglobin ABG Sodium ABG Potassium ABG Chloride ABG Glucose Oxyhemoglobin Sodium Potassium 2.9 L* D Chloride 94.8 L Carbon Dioxide BUN 102 H Creatinine 8.3 H Glucose 139 H POC Glucose 151 H 134 H Lactic Acid Calcium 8.1 L Phosphorus 5.00 H Magnesium Total Bilirubin AST ALT Alkaline Phosphatase Total Protein Albumin Triglycerides Arterial Blood Glucose Arterial Blood Ionized Calcium Digoxin Crossmatch 01/12/21 01/12/21 01/13/21 16:59 23:06 03:45 WBC RBC Hgb Hct MCV MCHC RDW Plt Count Lymph % (Auto) [place] % (Auto) Eos % (Auto) Lymph # (Auto) [place] # (Auto) Eos # (Auto) Seg Neutrophils % Seg Neuts % (Manual) Lymphocytes % (Manual) Monocytes % (Manual) Seg Neutrophils # Seg Neutrophils # Man Lymphocytes # (Manual) Monocytes # (Manual) PT INR ABG pH POC ABG pCO2 POC ABG pO2 ABG pO2 ABG HCO3 ABG O2 Saturation ABG Base Excess ABG Hemoglobin ABG Oxyhemoglobin ABG Sodium ABG Potassium ABG Chloride ABG Glucose Oxyhemoglobin Sodium 136 L Potassium 3.4 L Chloride 92.6 L Carbon Dioxide BUN 134 H Creatinine 10.4 H Glucose 126 H POC Glucose 108 H 135 H Lactic Acid Calcium 8.3 L Phosphorus 5.60 H Magnesium 1.50 L Total Bilirubin AST ALT Alkaline Phosphatase Total Protein Albumin Triglycerides Arterial Blood Glucose Arterial Blood Ionized Calcium Digoxin Crossmatch 01/13/21 01/13/21 01/13/21 03:45 05:55 11:59 WBC 17.6 H RBC 3.33 L Hgb 10.2 L Hct 29.5 L MCV MCHC 35 H RDW 15.5 H Plt Count Lymph % (Auto) 4.4 L [place] % (Auto) 10.3 H Eos % (Auto) Lymph # (Auto) 0.8 L [place] # (Auto) 1.8 H Eos # (Auto) Seg Neutrophils % 84.2 H Seg Neuts % (Manual) Lymphocytes % (Manual) Monocytes % (Manual) Seg Neutrophils # 14.8 H Seg Neutrophils # Man Lymphocytes # (Manual) Monocytes # (Manual) PT INR ABG pH POC ABG pCO2 POC ABG pO2 ABG pO2 ABG HCO3 ABG O2 Saturation ABG Base Excess ABG Hemoglobin ABG Oxyhemoglobin ABG Sodium ABG Potassium ABG Chloride ABG Glucose Oxyhemoglobin Sodium Potassium Chloride Carbon Dioxide BUN Creatinine Glucose POC Glucose 134 H 141 H Lactic Acid Calcium Phosphorus Magnesium Total Bilirubin AST ALT Alkaline Phosphatase Total Protein Albumin Triglycerides Arterial Blood Glucose Arterial Blood Ionized Calcium Digoxin Crossmatch 01/13/21 01/14/21 01/14/21 23:09 05:39 05:57 WBC RBC Hgb Hct MCV MCHC RDW Plt Count Lymph % (Auto) [place] % (Auto) Eos % (Auto) Lymph # (Auto) [place] # (Auto) Eos # (Auto) Seg Neutrophils % Seg Neuts % (Manual) Lymphocytes % (Manual) Monocytes % (Manual) Seg Neutrophils # Seg Neutrophils # Man Lymphocytes # (Manual) Monocytes # (Manual) PT INR ABG pH POC ABG pCO2 POC ABG pO2 ABG pO2 ABG HCO3 ABG O2 Saturation ABG Base Excess ABG Hemoglobin ABG Oxyhemoglobin ABG Sodium ABG Potassium ABG Chloride ABG Glucose Oxyhemoglobin Sodium Potassium Chloride 97.6 L Carbon Dioxide BUN 81 H Creatinine 7.6 H Glucose 193 H POC Glucose 106 H 190 H Lactic Acid Calcium 8.2 L Phosphorus 4.60 H Magnesium Total Bilirubin AST ALT Alkaline Phosphatase Total Protein Albumin Triglycerides Arterial Blood Glucose Arterial Blood Ionized Calcium Digoxin Crossmatch 01/14/21 01/14/21 01/14/21 10:00 16:56 16:59 WBC 17.0 H RBC 3.10 L Hgb 9.6 L Hct 27.4 L MCV MCHC 35 H RDW 15.6 H Plt Count Lymph % (Auto) [place] % (Auto) Eos % (Auto) Lymph # (Auto) [place] # (Auto) Eos # (Auto) Seg Neutrophils % Seg Neuts % (Manual) Lymphocytes % (Manual) Monocytes % (Manual) Seg Neutrophils # Seg Neutrophils # Man Lymphocytes # (Manual) Monocytes # (Manual) PT INR ABG pH POC ABG pCO2 POC ABG pO2 ABG pO2 ABG HCO3 ABG O2 Saturation ABG Base Excess ABG Hemoglobin ABG Oxyhemoglobin ABG Sodium ABG Potassium ABG Chloride ABG Glucose Oxyhemoglobin Sodium Potassium Chloride Carbon Dioxide BUN Creatinine Glucose POC Glucose 37 L 34 L Lactic Acid Calcium Phosphorus Magnesium Total Bilirubin AST ALT Alkaline Phosphatase Total Protein Albumin Triglycerides Arterial Blood Glucose Arterial Blood Ionized Calcium Digoxin Crossmatch 01/14/21 01/14/21 01/14/21 17:02 18:34 23:17 WBC RBC Hgb Hct MCV MCHC RDW Plt Count Lymph % (Auto) [place] % (Auto) Eos % (Auto) Lymph # (Auto) [place] # (Auto) Eos # (Auto) Seg Neutrophils % Seg Neuts % (Manual) Lymphocytes % (Manual) Monocytes % (Manual) Seg Neutrophils # Seg Neutrophils # Man Lymphocytes # (Manual) Monocytes # (Manual) PT INR ABG pH POC ABG pCO2 POC ABG pO2 ABG pO2 ABG HCO3 ABG O2 Saturation ABG Base Excess ABG Hemoglobin ABG Oxyhemoglobin ABG Sodium ABG Potassium ABG Chloride ABG Glucose Oxyhemoglobin Sodium Potassium Chloride Carbon Dioxide BUN Creatinine Glucose POC Glucose 35 L 143 H 53 L Lactic Acid Calcium Phosphorus Magnesium Total Bilirubin AST ALT Alkaline Phosphatase Total Protein Albumin Triglycerides Arterial Blood Glucose Arterial Blood Ionized Calcium Digoxin Crossmatch 01/15/21 01/15/21 01/15/21 00:34 04:00 04:00 WBC 15.9 H RBC 3.02 L Hgb 9.3 L Hct 27.3 L MCV MCHC RDW 15.6 H Plt Count Lymph % (Auto) [place] % (Auto) Eos % (Auto) Lymph # (Auto) [place] # (Auto) Eos # (Auto) Seg Neutrophils % Seg Neuts % (Manual) Lymphocytes % (Manual) Monocytes % (Manual) Seg Neutrophils # Seg Neutrophils # Man Lymphocytes # (Manual) Monocytes # (Manual) PT INR ABG pH POC ABG pCO2 POC ABG pO2 ABG pO2 ABG HCO3 ABG O2 Saturation ABG Base Excess ABG Hemoglobin ABG Oxyhemoglobin ABG Sodium ABG Potassium ABG Chloride ABG Glucose Oxyhemoglobin Sodium 136 L Potassium Chloride 94.3 L Carbon Dioxide BUN 117 H Creatinine 9.9 H Glucose 217 H POC Glucose 181 H Lactic Acid Calcium 8.3 L Phosphorus Magnesium Total Bilirubin AST ALT Alkaline Phosphatase Total Protein Albumin Triglycerides Arterial Blood Glucose Arterial Blood Ionized Calcium Digoxin Crossmatch 01/15/21 01/15/21 01/15/21 05:29 11:51 23:13 WBC RBC Hgb Hct MCV MCHC RDW Plt Count Lymph % (Auto) [place] % (Auto) Eos % (Auto) Lymph # (Auto) [place] # (Auto) Eos # (Auto) Seg Neutrophils % Seg Neuts % (Manual) Lymphocytes % (Manual) Monocytes % (Manual) Seg Neutrophils # Seg Neutrophils # Man Lymphocytes # (Manual) Monocytes # (Manual) PT INR ABG pH POC ABG pCO2 POC ABG pO2 ABG pO2 ABG HCO3 ABG O2 Saturation ABG Base Excess ABG Hemoglobin ABG Oxyhemoglobin ABG Sodium ABG Potassium ABG Chloride ABG Glucose Oxyhemoglobin Sodium Potassium Chloride Carbon Dioxide BUN Creatinine Glucose POC Glucose 221 H 62 L 154 H Lactic Acid Calcium Phosphorus Magnesium Total Bilirubin AST ALT Alkaline Phosphatase Total Protein Albumin Triglycerides Arterial Blood Glucose Arterial Blood Ionized Calcium Digoxin Crossmatch 01/16/21 01/16/21 01/16/21 05:04 06:44 06:44 WBC 14.8 H RBC 2.76 L Hgb 8.2 L Hct 24.8 L MCV MCHC RDW 15.6 H Plt Count Lymph % (Auto) [place] % (Auto) Eos % (Auto) Lymph # (Auto) [place] # (Auto) Eos # (Auto) Seg Neutrophils % Seg Neuts % (Manual) Lymphocytes % (Manual) Monocytes % (Manual) Seg Neutrophils # Seg Neutrophils # Man Lymphocytes # (Manual) Monocytes # (Manual) PT INR ABG pH POC ABG pCO2 POC ABG pO2 ABG pO2 ABG HCO3 ABG O2 Saturation ABG Base Excess ABG Hemoglobin ABG Oxyhemoglobin ABG Sodium ABG Potassium ABG Chloride ABG Glucose Oxyhemoglobin Sodium 133 L Potassium Chloride 92.3 L Carbon Dioxide 20 L BUN 160 H Creatinine 12.1 H Glucose 177 H POC Glucose 168 H Lactic Acid Calcium 8.1 L Phosphorus 5.50 H Magnesium 2.50 H Total Bilirubin AST ALT Alkaline Phosphatase Total Protein Albumin Triglycerides Arterial Blood Glucose Arterial Blood Ionized Calcium Digoxin Crossmatch 01/16/21 01/17/21 01/17/21 23:20 05:14 05:14 WBC 12.7 H RBC 2.75 L Hgb 8.5 L Hct 24.6 L MCV MCHC 35 H RDW 15.4 H Plt Count Lymph % (Auto) [place] % (Auto) Eos % (Auto) Lymph # (Auto) [place] # (Auto) Eos # (Auto) Seg Neutrophils % Seg Neuts % (Manual) Lymphocytes % (Manual) Monocytes % (Manual) Seg Neutrophils # Seg Neutrophils # Man Lymphocytes # (Manual) Monocytes # (Manual) PT INR ABG pH POC ABG pCO2 POC ABG pO2 ABG pO2 ABG HCO3 ABG O2 Saturation ABG Base Excess ABG Hemoglobin ABG Oxyhemoglobin ABG Sodium ABG Potassium ABG Chloride ABG Glucose Oxyhemoglobin Sodium Potassium Chloride 97.9 L Carbon Dioxide BUN 84 H Creatinine 7.8 H Glucose 176 H POC Glucose 153 H Lactic Acid Calcium 8.0 L Phosphorus Magnesium Total Bilirubin AST ALT Alkaline Phosphatase Total Protein Albumin Triglycerides Arterial Blood Glucose Arterial Blood Ionized Calcium Digoxin Crossmatch 01/17/21 01/17/21 01/18/21 05:33 11:58 00:07 WBC RBC Hgb Hct MCV MCHC RDW Plt Count Lymph % (Auto) [place] % (Auto) Eos % (Auto) Lymph # (Auto) [place] # (Auto) Eos # (Auto) Seg Neutrophils % Seg Neuts % (Manual) Lymphocytes % (Manual) Monocytes % (Manual) Seg Neutrophils # Seg Neutrophils # Man Lymphocytes # (Manual) Monocytes # (Manual) PT INR ABG pH POC ABG pCO2 POC ABG pO2 ABG pO2 ABG HCO3 ABG O2 Saturation ABG Base Excess ABG Hemoglobin ABG Oxyhemoglobin ABG Sodium ABG Potassium ABG Chloride ABG Glucose Oxyhemoglobin Sodium Potassium Chloride Carbon Dioxide BUN Creatinine Glucose POC Glucose 162 H 64 L 146 H Lactic Acid Calcium Phosphorus Magnesium Total Bilirubin AST ALT Alkaline Phosphatase Total Protein Albumin Triglycerides Arterial Blood Glucose Arterial Blood Ionized Calcium Digoxin Crossmatch 01/18/21 01/18/21 01/18/21 04:19 04:19 06:15 WBC 15.6 H RBC 3.00 L Hgb 9.2 L Hct 26.8 L MCV MCHC 35 H RDW 15.6 H Plt Count Lymph % (Auto) [place] % (Auto) Eos % (Auto) Lymph # (Auto) [place] # (Auto) Eos # (Auto) Seg Neutrophils % Seg Neuts % (Manual) Lymphocytes % (Manual) Monocytes % (Manual) Seg Neutrophils # Seg Neutrophils # Man Lymphocytes # (Manual) Monocytes # (Manual) PT INR ABG pH POC ABG pCO2 POC ABG pO2 ABG pO2 ABG HCO3 ABG O2 Saturation ABG Base Excess ABG Hemoglobin ABG Oxyhemoglobin ABG Sodium ABG Potassium ABG Chloride ABG Glucose Oxyhemoglobin Sodium Potassium Chloride 96.2 L Carbon Dioxide BUN 117 H Creatinine 10.0 H Glucose 165 H POC Glucose 189 H Lactic Acid Calcium Phosphorus 4.70 H D Magnesium Total Bilirubin AST ALT Alkaline Phosphatase Total Protein Albumin Triglycerides Arterial Blood Glucose Arterial Blood Ionized Calcium Digoxin Crossmatch 01/18/21 01/18/21 01/18/21 11:53 13:44 15:08 WBC RBC Hgb Hct MCV MCHC RDW Plt Count Lymph % (Auto) [place] % (Auto) Eos % (Auto) Lymph # (Auto) [place] # (Auto) Eos # (Auto) Seg Neutrophils % Seg Neuts % (Manual) Lymphocytes % (Manual) Monocytes % (Manual) Seg Neutrophils # Seg Neutrophils # Man Lymphocytes # (Manual) Monocytes # (Manual) PT INR ABG pH POC ABG pCO2 POC ABG pO2 ABG pO2 ABG HCO3 ABG O2 Saturation ABG Base Excess ABG Hemoglobin ABG Oxyhemoglobin ABG Sodium ABG Potassium ABG Chloride ABG Glucose Oxyhemoglobin Sodium Potassium Chloride Carbon Dioxide BUN Creatinine Glucose POC Glucose 69 L 50 L 56 L Lactic Acid Calcium Phosphorus Magnesium Total Bilirubin AST ALT Alkaline Phosphatase Total Protein Albumin Triglycerides Arterial Blood Glucose Arterial Blood Ionized Calcium Digoxin Crossmatch 01/18/21 01/19/21 01/19/21 17:50 04:55 08:56 WBC 12.7 H RBC 2.89 L Hgb 8.7 L Hct 25.6 L MCV MCHC RDW 15.5 H Plt Count Lymph % (Auto) [place] % (Auto) Eos % (Auto) Lymph # (Auto) [place] # (Auto) Eos # (Auto) Seg Neutrophils % Seg Neuts % (Manual) Lymphocytes % (Manual) Monocytes % (Manual) Seg Neutrophils # Seg Neutrophils # Man Lymphocytes # (Manual) Monocytes # (Manual) PT INR ABG pH POC ABG pCO2 POC ABG pO2 ABG pO2 ABG HCO3 ABG O2 Saturation ABG Base Excess ABG Hemoglobin ABG Oxyhemoglobin ABG Sodium ABG Potassium ABG Chloride ABG Glucose Oxyhemoglobin Sodium Potassium Chloride Carbon Dioxide BUN Creatinine Glucose POC Glucose 137 H 120 H Lactic Acid Calcium Phosphorus Magnesium Total Bilirubin AST ALT Alkaline Phosphatase Total Protein Albumin Triglycerides Arterial Blood Glucose Arterial Blood Ionized Calcium Digoxin Crossmatch 01/19/21 01/19/21 01/19/21 08:56 11:33 17:32 WBC RBC Hgb Hct MCV MCHC RDW Plt Count Lymph % (Auto) [place] % (Auto) Eos % (Auto) Lymph # (Auto) [place] # (Auto) Eos # (Auto) Seg Neutrophils % Seg Neuts % (Manual) Lymphocytes % (Manual) Monocytes % (Manual) Seg Neutrophils # Seg Neutrophils # Man Lymphocytes # (Manual) Monocytes # (Manual) PT INR ABG pH POC ABG pCO2 POC ABG pO2 ABG pO2 ABG HCO3 ABG O2 Saturation ABG Base Excess ABG Hemoglobin ABG Oxyhemoglobin ABG Sodium ABG Potassium ABG Chloride ABG Glucose Oxyhemoglobin Sodium Potassium Chloride Carbon Dioxide BUN 66 H Creatinine 7.7 H Glucose 119 H POC Glucose 160 H 125 H Lactic Acid Calcium 8.3 L Phosphorus Magnesium Total Bilirubin AST ALT Alkaline Phosphatase Total Protein Albumin Triglycerides Arterial Blood Glucose Arterial Blood Ionized Calcium Digoxin Crossmatch 01/19/21 01/20/21 01/20/21 23:30 03:35 03:35 WBC 12.0 H RBC 2.62 L Hgb 8.3 L Hct 23.2 L MCV MCHC 36 H RDW Plt Count Lymph % (Auto) [place] % (Auto) Eos % (Auto) Lymph # (Auto) [place] # (Auto) Eos # (Auto) Seg Neutrophils % Seg Neuts % (Manual) Lymphocytes % (Manual) Monocytes % (Manual) Seg Neutrophils # Seg Neutrophils # Man Lymphocytes # (Manual) Monocytes # (Manual) PT INR ABG pH POC ABG pCO2 POC ABG pO2 ABG pO2 ABG HCO3 ABG O2 Saturation ABG Base Excess ABG Hemoglobin ABG Oxyhemoglobin ABG Sodium ABG Potassium ABG Chloride ABG Glucose Oxyhemoglobin Sodium Potassium Chloride Carbon Dioxide BUN 46 H Creatinine 5.9 H Glucose 128 H POC Glucose 127 H Lactic Acid Calcium Phosphorus Magnesium Total Bilirubin AST ALT Alkaline Phosphatase Total Protein Albumin Triglycerides Arterial Blood Glucose Arterial Blood Ionized Calcium Digoxin Crossmatch 01/20/21 01/20/21 01/20/21 06:19 11:55 18:00 WBC RBC Hgb Hct MCV MCHC RDW Plt Count Lymph % (Auto) [place] % (Auto) Eos % (Auto) Lymph # (Auto) [place] # (Auto) Eos # (Auto) Seg Neutrophils % Seg Neuts % (Manual) Lymphocytes % (Manual) Monocytes % (Manual) Seg Neutrophils # Seg Neutrophils # Man Lymphocytes # (Manual) Monocytes # (Manual) PT INR ABG pH POC ABG pCO2 POC ABG pO2 ABG pO2 ABG HCO3 ABG O2 Saturation ABG Base Excess ABG Hemoglobin ABG Oxyhemoglobin ABG Sodium ABG Potassium ABG Chloride ABG Glucose Oxyhemoglobin Sodium Potassium Chloride Carbon Dioxide BUN Creatinine Glucose POC Glucose 119 H 128 H 115 H Lactic Acid Calcium Phosphorus Magnesium Total Bilirubin AST ALT Alkaline Phosphatase Total Protein Albumin Triglycerides Arterial Blood Glucose Arterial Blood Ionized Calcium Digoxin Crossmatch 01/20/21 01/21/21 01/21/21 23:26 04:39 05:27 WBC RBC Hgb Hct MCV MCHC RDW Plt Count Lymph % (Auto) [place] % (Auto) Eos % (Auto) Lymph # (Auto) [place] # (Auto) Eos # (Auto) Seg Neutrophils % Seg Neuts % (Manual) Lymphocytes % (Manual) Monocytes % (Manual) Seg Neutrophils # Seg Neutrophils # Man Lymphocytes # (Manual) Monocytes # (Manual) PT INR ABG pH POC ABG pCO2 POC ABG pO2 ABG pO2 ABG HCO3 ABG O2 Saturation ABG Base Excess ABG Hemoglobin ABG Oxyhemoglobin ABG Sodium ABG Potassium ABG Chloride ABG Glucose Oxyhemoglobin Sodium Potassium Chloride Carbon Dioxide BUN 37 H Creatinine 5.3 H Glucose 109 H POC Glucose 108 H 107 H Lactic Acid Calcium Phosphorus 2.10 L Magnesium 1.50 L Total Bilirubin AST ALT Alkaline Phosphatase 143 H Total Protein 6.1 L Albumin 3.0 L Triglycerides Arterial Blood Glucose Arterial Blood Ionized Calcium Digoxin Crossmatch 01/21/21 01/21/21 01/22/21 11:35 17:53 00:20 WBC RBC Hgb Hct MCV MCHC RDW Plt Count Lymph % (Auto) [place] % (Auto) Eos % (Auto) Lymph # (Auto) [place] # (Auto) Eos # (Auto) Seg Neutrophils % Seg Neuts % (Manual) Lymphocytes % (Manual) Monocytes % (Manual) Seg Neutrophils # Seg Neutrophils # Man Lymphocytes # (Manual) Monocytes # (Manual) PT INR ABG pH POC ABG pCO2 POC ABG pO2 ABG pO2 ABG HCO3 ABG O2 Saturation ABG Base Excess ABG Hemoglobin ABG Oxyhemoglobin ABG Sodium ABG Potassium ABG Chloride ABG Glucose Oxyhemoglobin Sodium Potassium Chloride Carbon Dioxide BUN Creatinine Glucose POC Glucose 133 H 124 H 122 H Lactic Acid Calcium Phosphorus Magnesium Total Bilirubin AST ALT Alkaline Phosphatase Total Protein Albumin Triglycerides Arterial Blood Glucose Arterial Blood Ionized Calcium Digoxin Crossmatch 01/22/21 01/22/21 01/22/21 04:00 06:09 11:36 WBC RBC Hgb Hct MCV MCHC RDW Plt Count Lymph % (Auto) [place] % (Auto) Eos % (Auto) Lymph # (Auto) [place] # (Auto) Eos # (Auto) Seg Neutrophils % Seg Neuts % (Manual) Lymphocytes % (Manual) Monocytes % (Manual) Seg Neutrophils # Seg Neutrophils # Man Lymphocytes # (Manual) Monocytes # (Manual) PT INR ABG pH POC ABG pCO2 POC ABG pO2 ABG pO2 ABG HCO3 ABG O2 Saturation ABG Base Excess ABG Hemoglobin ABG Oxyhemoglobin ABG Sodium ABG Potassium ABG Chloride ABG Glucose Oxyhemoglobin Sodium Potassium Chloride Carbon Dioxide BUN 65 H Creatinine 8.2 H D Glucose 111 H POC Glucose 122 H 132 H Lactic Acid Calcium Phosphorus Magnesium Total Bilirubin AST ALT Alkaline Phosphatase Total Protein Albumin Triglycerides Arterial Blood Glucose Arterial Blood Ionized Calcium Digoxin Crossmatch 01/22/21 01/22/21 01/23/21 17:17 23:18 05:29 WBC RBC Hgb Hct MCV MCHC RDW Plt Count Lymph % (Auto) [place] % (Auto) Eos % (Auto) Lymph # (Auto) [place] # (Auto) Eos # (Auto) Seg Neutrophils % Seg Neuts % (Manual) Lymphocytes % (Manual) Monocytes % (Manual) Seg Neutrophils # Seg Neutrophils # Man Lymphocytes # (Manual) Monocytes # (Manual) PT INR ABG pH POC ABG pCO2 POC ABG pO2 ABG pO2 ABG HCO3 ABG O2 Saturation ABG Base Excess ABG Hemoglobin ABG Oxyhemoglobin ABG Sodium ABG Potassium ABG Chloride ABG Glucose Oxyhemoglobin Sodium Potassium Chloride Carbon Dioxide BUN Creatinine Glucose POC Glucose 135 H 128 H 129 H Lactic Acid Calcium Phosphorus Magnesium Total Bilirubin AST ALT Alkaline Phosphatase Total Protein Albumin Triglycerides Arterial Blood Glucose Arterial Blood Ionized Calcium Digoxin Crossmatch 01/23/21 01/23/21 01/23/21 05:45 11:28 16:39 WBC RBC Hgb Hct MCV MCHC RDW Plt Count Lymph % (Auto) [place] % (Auto) Eos % (Auto) Lymph # (Auto) [place] # (Auto) Eos # (Auto) Seg Neutrophils % Seg Neuts % (Manual) Lymphocytes % (Manual) Monocytes % (Manual) Seg Neutrophils # Seg Neutrophils # Man Lymphocytes # (Manual) Monocytes # (Manual) PT INR ABG pH POC ABG pCO2 POC ABG pO2 ABG pO2 ABG HCO3 ABG O2 Saturation ABG Base Excess ABG Hemoglobin ABG Oxyhemoglobin ABG Sodium ABG Potassium ABG Chloride ABG Glucose Oxyhemoglobin Sodium Potassium Chloride Carbon Dioxide BUN 96 H Creatinine 10.8 H Glucose 124 H POC Glucose 160 H 116 H Lactic Acid Calcium Phosphorus Magnesium 2.50 H Total Bilirubin AST ALT Alkaline Phosphatase Total Protein Albumin Triglycerides Arterial Blood Glucose Arterial Blood Ionized Calcium Digoxin Crossmatch 01/24/21 01/24/21 01/24/21 00:02 04:45 05:01 WBC RBC Hgb Hct MCV MCHC RDW Plt Count Lymph % (Auto) [place] % (Auto) Eos % (Auto) Lymph # (Auto) [place] # (Auto) Eos # (Auto) Seg Neutrophils % Seg Neuts % (Manual) Lymphocytes % (Manual) Monocytes % (Manual) Seg Neutrophils # Seg Neutrophils # Man Lymphocytes # (Manual) Monocytes # (Manual) PT INR ABG pH POC ABG pCO2 POC ABG pO2 ABG pO2 ABG HCO3 ABG O2 Saturation ABG Base Excess ABG Hemoglobin ABG Oxyhemoglobin ABG Sodium ABG Potassium ABG Chloride ABG Glucose Oxyhemoglobin Sodium Potassium 3.5 L Chloride Carbon Dioxide BUN 56 H Creatinine 7.7 H Glucose 102 H POC Glucose 120 H 108 H Lactic Acid Calcium Phosphorus Magnesium Total Bilirubin AST ALT Alkaline Phosphatase Total Protein Albumin Triglycerides Arterial Blood Glucose Arterial Blood Ionized Calcium Digoxin Crossmatch 01/24/21 01/24/21 01/24/21 12:03 17:07 23:55 WBC RBC Hgb Hct MCV MCHC RDW Plt Count Lymph % (Auto) [place] % (Auto) Eos % (Auto) Lymph # (Auto) [place] # (Auto) Eos # (Auto) Seg Neutrophils % Seg Neuts % (Manual) Lymphocytes % (Manual) Monocytes % (Manual) Seg Neutrophils # Seg Neutrophils # Man Lymphocytes # (Manual) Monocytes # (Manual) PT INR ABG pH POC ABG pCO2 POC ABG pO2 ABG pO2 ABG HCO3 ABG O2 Saturation ABG Base Excess ABG Hemoglobin ABG Oxyhemoglobin ABG Sodium ABG Potassium ABG Chloride ABG Glucose Oxyhemoglobin Sodium Potassium Chloride Carbon Dioxide BUN Creatinine Glucose POC Glucose 136 H 122 H 112 H Lactic Acid Calcium Phosphorus Magnesium Total Bilirubin AST ALT Alkaline Phosphatase Total Protein Albumin Triglycerides Arterial Blood Glucose Arterial Blood Ionized Calcium Digoxin Crossmatch 01/25/21 01/25/21 01/25/21 05:15 06:00 07:47 WBC RBC Hgb Hct MCV MCHC RDW Plt Count Lymph % (Auto) [place] % (Auto) Eos % (Auto) Lymph # (Auto) [place] # (Auto) Eos # (Auto) Seg Neutrophils % Seg Neuts % (Manual) Lymphocytes % (Manual) Monocytes % (Manual) Seg Neutrophils # Seg Neutrophils # Man Lymphocytes # (Manual) Monocytes # (Manual) PT INR ABG pH POC ABG pCO2 POC ABG pO2 ABG pO2 ABG HCO3 ABG O2 Saturation ABG Base Excess ABG Hemoglobin ABG Oxyhemoglobin ABG Sodium ABG Potassium ABG Chloride ABG Glucose Oxyhemoglobin Sodium 116 L* D Potassium Chloride 79.1 L Carbon Dioxide 17 L D BUN 72 H Creatinine 7.4 H Glucose 2242 H* POC Glucose 117 H 138 H Lactic Acid Calcium 6.7 L D Phosphorus Magnesium Total Bilirubin AST ALT Alkaline Phosphatase Total Protein Albumin Triglycerides Arterial Blood Glucose Arterial Blood Ionized Calcium Digoxin Crossmatch 01/25/21 01/25/21 01/25/21 08:35 11:49 18:42 WBC RBC Hgb Hct MCV MCHC RDW Plt Count Lymph % (Auto) [place] % (Auto) Eos % (Auto) Lymph # (Auto) [place] # (Auto) Eos # (Auto) Seg Neutrophils % Seg Neuts % (Manual) Lymphocytes % (Manual) Monocytes % (Manual) Seg Neutrophils # Seg Neutrophils # Man Lymphocytes # (Manual) Monocytes # (Manual) PT INR ABG pH POC ABG pCO2 POC ABG pO2 ABG pO2 ABG HCO3 ABG O2 Saturation ABG Base Excess ABG Hemoglobin ABG Oxyhemoglobin ABG Sodium ABG Potassium ABG Chloride ABG Glucose Oxyhemoglobin Sodium Potassium Chloride 97.0 L Carbon Dioxide BUN 92 H Creatinine 11.0 H Glucose 125 H POC Glucose 130 H 122 H Lactic Acid Calcium Phosphorus Magnesium Total Bilirubin AST ALT Alkaline Phosphatase Total Protein Albumin Triglycerides Arterial Blood Glucose Arterial Blood Ionized Calcium Digoxin Crossmatch 01/25/21 01/26/21 01/26/21 23:37 04:19 05:48 WBC RBC Hgb Hct MCV MCHC RDW Plt Count Lymph % (Auto) [place] % (Auto) Eos % (Auto) Lymph # (Auto) [place] # (Auto) Eos # (Auto) Seg Neutrophils % Seg Neuts % (Manual) Lymphocytes % (Manual) Monocytes % (Manual) Seg Neutrophils # Seg Neutrophils # Man Lymphocytes # (Manual) Monocytes # (Manual) PT INR ABG pH POC ABG pCO2 POC ABG pO2 ABG pO2 ABG HCO3 ABG O2 Saturation ABG Base Excess ABG Hemoglobin ABG Oxyhemoglobin ABG Sodium ABG Potassium ABG Chloride ABG Glucose Oxyhemoglobin Sodium Potassium Chloride Carbon Dioxide BUN 49 H Creatinine 7.1 H Glucose POC Glucose 144 H 125 H Lactic Acid Calcium Phosphorus Magnesium 1.50 L Total Bilirubin AST ALT Alkaline Phosphatase Total Protein Albumin Triglycerides Arterial Blood Glucose Arterial Blood Ionized Calcium Digoxin Crossmatch 01/26/21 01/26/21 01/27/21 11:16 18:35 00:01 WBC RBC Hgb Hct MCV MCHC RDW Plt Count Lymph % (Auto) [place] % (Auto) Eos % (Auto) Lymph # (Auto) [place] # (Auto) Eos # (Auto) Seg Neutrophils % Seg Neuts % (Manual) Lymphocytes % (Manual) Monocytes % (Manual) Seg Neutrophils # Seg Neutrophils # Man Lymphocytes # (Manual) Monocytes # (Manual) PT INR ABG pH POC ABG pCO2 POC ABG pO2 ABG pO2 ABG HCO3 ABG O2 Saturation ABG Base Excess ABG Hemoglobin ABG Oxyhemoglobin ABG Sodium ABG Potassium ABG Chloride ABG Glucose Oxyhemoglobin Sodium Potassium Chloride Carbon Dioxide BUN Creatinine Glucose POC Glucose 122 H 127 H 130 H Lactic Acid Calcium Phosphorus Magnesium Total Bilirubin AST ALT Alkaline Phosphatase Total Protein Albumin Triglycerides Arterial Blood Glucose Arterial Blood Ionized Calcium Digoxin Crossmatch 01/27/21 01/27/21 01/27/21 04:19 04:19 05:25 WBC 12.4 H RBC 2.79 L Hgb 8.6 L Hct 25.1 L MCV MCHC RDW 16.1 H Plt Count Lymph % (Auto) 7.5 L [place] % (Auto) 9.3 H Eos % (Auto) 4.8 H Lymph # (Auto) 0.9 L [place] # (Auto) 1.1 H Eos # (Auto) 0.6 H Seg Neutrophils % 78.0 H Seg Neuts % (Manual) Lymphocytes % (Manual) Monocytes % (Manual) Seg Neutrophils # 9.7 H Seg Neutrophils # Man Lymphocytes # (Manual) Monocytes # (Manual) PT INR ABG pH POC ABG pCO2 POC ABG pO2 ABG pO2 ABG HCO3 ABG O2 Saturation ABG Base Excess ABG Hemoglobin ABG Oxyhemoglobin ABG Sodium ABG Potassium ABG Chloride ABG Glucose Oxyhemoglobin Sodium Potassium Chloride 97.9 L Carbon Dioxide BUN 76 H Creatinine 9.9 H Glucose 111 H POC Glucose 129 H Lactic Acid Calcium Phosphorus Magnesium Total Bilirubin AST ALT Alkaline Phosphatase Total Protein Albumin Triglycerides Arterial Blood Glucose Arterial Blood Ionized Calcium Digoxin Crossmatch 01/27/21 01/27/21 01/27/21 11:30 17:08 23:28 WBC RBC Hgb Hct MCV MCHC RDW Plt Count Lymph % (Auto) [place] % (Auto) Eos % (Auto) Lymph # (Auto) [place] # (Auto) Eos # (Auto) Seg Neutrophils % Seg Neuts % (Manual) Lymphocytes % (Manual) Monocytes % (Manual) Seg Neutrophils # Seg Neutrophils # Man Lymphocytes # (Manual) Monocytes # (Manual) PT INR ABG pH POC ABG pCO2 POC ABG pO2 ABG pO2 ABG HCO3 ABG O2 Saturation ABG Base Excess ABG Hemoglobin ABG Oxyhemoglobin ABG Sodium ABG Potassium ABG Chloride ABG Glucose Oxyhemoglobin Sodium Potassium Chloride Carbon Dioxide BUN Creatinine Glucose POC Glucose 128 H 158 H 114 H Lactic Acid Calcium Phosphorus Magnesium Total Bilirubin AST ALT Alkaline Phosphatase Total Protein Albumin Triglycerides Arterial Blood Glucose Arterial Blood Ionized Calcium Digoxin Crossmatch 01/28/21 01/28/21 01/28/21 05:17 11:27 18:01 WBC RBC Hgb Hct MCV MCHC RDW Plt Count Lymph % (Auto) [place] % (Auto) Eos % (Auto) Lymph # (Auto) [place] # (Auto) Eos # (Auto) Seg Neutrophils % Seg Neuts % (Manual) Lymphocytes % (Manual) Monocytes % (Manual) Seg Neutrophils # Seg Neutrophils # Man Lymphocytes # (Manual) Monocytes # (Manual) PT INR ABG pH POC ABG pCO2 POC ABG pO2 ABG pO2 ABG HCO3 ABG O2 Saturation ABG Base Excess ABG Hemoglobin ABG Oxyhemoglobin ABG Sodium ABG Potassium ABG Chloride ABG Glucose Oxyhemoglobin Sodium Potassium Chloride Carbon Dioxide BUN Creatinine Glucose POC Glucose 113 H 134 H 111 H Lactic Acid Calcium Phosphorus Magnesium Total Bilirubin AST ALT Alkaline Phosphatase Total Protein Albumin Triglycerides Arterial Blood Glucose Arterial Blood Ionized Calcium Digoxin Crossmatch 01/29/21 01/29/21 01/29/21 04:54 06:45 11:10 WBC RBC Hgb Hct MCV MCHC RDW Plt Count Lymph % (Auto) [place] % (Auto) Eos % (Auto) Lymph # (Auto) [place] # (Auto) Eos # (Auto) Seg Neutrophils % Seg Neuts % (Manual) Lymphocytes % (Manual) Monocytes % (Manual) Seg Neutrophils # Seg Neutrophils # Man Lymphocytes # (Manual) Monocytes # (Manual) PT INR ABG pH POC ABG pCO2 POC ABG pO2 ABG pO2 ABG HCO3 ABG O2 Saturation ABG Base Excess ABG Hemoglobin ABG Oxyhemoglobin ABG Sodium ABG Potassium ABG Chloride ABG Glucose Oxyhemoglobin Sodium Potassium 3.4 L Chloride Carbon Dioxide BUN 51 H Creatinine 6.9 H Glucose 120 H POC Glucose 111 H 106 H Lactic Acid Calcium Phosphorus 2.10 L Magnesium Total Bilirubin AST ALT Alkaline Phosphatase 182 H Total Protein 6.0 L Albumin 2.9 L Triglycerides Arterial Blood Glucose Arterial Blood Ionized Calcium Digoxin Crossmatch 01/29/21 01/30/21 01/30/21 16:47 04:15 06:55 WBC RBC Hgb Hct MCV MCHC RDW Plt Count Lymph % (Auto) [place] % (Auto) Eos % (Auto) Lymph # (Auto) [place] # (Auto) Eos # (Auto) Seg Neutrophils % Seg Neuts % (Manual) Lymphocytes % (Manual) Monocytes % (Manual) Seg Neutrophils # Seg Neutrophils # Man Lymphocytes # (Manual) Monocytes # (Manual) PT INR ABG pH POC ABG pCO2 POC ABG pO2 ABG pO2 ABG HCO3 ABG O2 Saturation ABG Base Excess ABG Hemoglobin ABG Oxyhemoglobin ABG Sodium ABG Potassium ABG Chloride ABG Glucose Oxyhemoglobin Sodium Potassium Chloride Carbon Dioxide BUN 73 H Creatinine 9.2 H Glucose 119 H POC Glucose 110 H 126 H Lactic Acid Calcium Phosphorus 4.70 H D Magnesium Total Bilirubin AST ALT Alkaline Phosphatase Total Protein Albumin Triglycerides Arterial Blood Glucose Arterial Blood Ionized Calcium Digoxin Crossmatch 01/30/21 01/31/21 01/31/21 18:25 00:51 07:15 WBC RBC Hgb Hct MCV MCHC RDW Plt Count Lymph % (Auto) [place] % (Auto) Eos % (Auto) Lymph # (Auto) [place] # (Auto) Eos # (Auto) Seg Neutrophils % Seg Neuts % (Manual) Lymphocytes % (Manual) Monocytes % (Manual) Seg Neutrophils # Seg Neutrophils # Man Lymphocytes # (Manual) Monocytes # (Manual) PT INR ABG pH POC ABG pCO2 POC ABG pO2 ABG pO2 ABG HCO3 ABG O2 Saturation ABG Base Excess ABG Hemoglobin ABG Oxyhemoglobin ABG Sodium ABG Potassium ABG Chloride ABG Glucose Oxyhemoglobin Sodium Potassium Chloride Carbon Dioxide BUN Creatinine Glucose POC Glucose 117 H 134 H 134 H Lactic Acid Calcium Phosphorus Magnesium Total Bilirubin AST ALT Alkaline Phosphatase Total Protein Albumin Triglycerides Arterial Blood Glucose Arterial Blood Ionized Calcium Digoxin Crossmatch 01/31/21 01/31/21 02/01/21 11:45 23:15 05:51 WBC RBC Hgb Hct MCV MCHC RDW Plt Count Lymph % (Auto) [place] % (Auto) Eos % (Auto) Lymph # (Auto) [place] # (Auto) Eos # (Auto) Seg Neutrophils % Seg Neuts % (Manual) Lymphocytes % (Manual) Monocytes % (Manual) Seg Neutrophils # Seg Neutrophils # Man Lymphocytes # (Manual) Monocytes # (Manual) PT INR ABG pH POC ABG pCO2 POC ABG pO2 ABG pO2 ABG HCO3 ABG O2 Saturation ABG Base Excess ABG Hemoglobin ABG Oxyhemoglobin ABG Sodium ABG Potassium ABG Chloride ABG Glucose Oxyhemoglobin Sodium Potassium Chloride Carbon Dioxide BUN Creatinine Glucose POC Glucose 119 H 120 H 125 H Lactic Acid Calcium Phosphorus Magnesium Total Bilirubin AST ALT Alkaline Phosphatase Total Protein Albumin Triglycerides Arterial Blood Glucose Arterial Blood Ionized Calcium Digoxin Crossmatch 02/01/21 02/02/21 02/02/21 22:05 03:25 06:16 WBC RBC Hgb Hct MCV MCHC RDW Plt Count Lymph % (Auto) [place] % (Auto) Eos % (Auto) Lymph # (Auto) [place] # (Auto) Eos # (Auto) Seg Neutrophils % Seg Neuts % (Manual) Lymphocytes % (Manual) Monocytes % (Manual) Seg Neutrophils # Seg Neutrophils # Man Lymphocytes # (Manual) Monocytes # (Manual) PT INR ABG pH POC ABG pCO2 POC ABG pO2 ABG pO2 ABG HCO3 ABG O2 Saturation ABG Base Excess ABG Hemoglobin ABG Oxyhemoglobin ABG Sodium ABG Potassium ABG Chloride ABG Glucose Oxyhemoglobin Sodium Potassium 3.3 L Chloride Carbon Dioxide BUN 38 H Creatinine 5.8 H Glucose 115 H POC Glucose 118 H 130 H Lactic Acid Calcium Phosphorus 1.80 L Magnesium 1.60 L Total Bilirubin AST ALT Alkaline Phosphatase Total Protein Albumin Triglycerides Arterial Blood Glucose Arterial Blood Ionized Calcium Digoxin Crossmatch 02/02/21 02/02/21 02/03/21 17:29 21:53 04:50 WBC RBC Hgb Hct MCV MCHC RDW Plt Count Lymph % (Auto) [place] % (Auto) Eos % (Auto) Lymph # (Auto) [place] # (Auto) Eos # (Auto) Seg Neutrophils % Seg Neuts % (Manual) Lymphocytes % (Manual) Monocytes % (Manual) Seg Neutrophils # Seg Neutrophils # Man Lymphocytes # (Manual) Monocytes # (Manual) PT INR ABG pH POC ABG pCO2 POC ABG pO2 ABG pO2 ABG HCO3 ABG O2 Saturation ABG Base Excess ABG Hemoglobin ABG Oxyhemoglobin ABG Sodium ABG Potassium ABG Chloride ABG Glucose Oxyhemoglobin Sodium Potassium Chloride Carbon Dioxide BUN Creatinine Glucose POC Glucose 115 H 120 H Lactic Acid Calcium Phosphorus Magnesium 1.60 L Total Bilirubin AST ALT Alkaline Phosphatase Total Protein Albumin Triglycerides Arterial Blood Glucose Arterial Blood Ionized Calcium Digoxin Crossmatch 02/03/21 02/03/21 02/03/21 06:12 18:25 23:47 WBC RBC Hgb Hct MCV MCHC RDW Plt Count Lymph % (Auto) [place] % (Auto) Eos % (Auto) Lymph # (Auto) [place] # (Auto) Eos # (Auto) Seg Neutrophils % Seg Neuts % (Manual) Lymphocytes % (Manual) Monocytes % (Manual) Seg Neutrophils # Seg Neutrophils # Man Lymphocytes # (Manual) Monocytes # (Manual) PT INR ABG pH POC ABG pCO2 POC ABG pO2 ABG pO2 ABG HCO3 ABG O2 Saturation ABG Base Excess ABG Hemoglobin ABG Oxyhemoglobin ABG Sodium ABG Potassium ABG Chloride ABG Glucose Oxyhemoglobin Sodium Potassium Chloride Carbon Dioxide BUN Creatinine Glucose POC Glucose 112 H 112 H 131 H Lactic Acid Calcium Phosphorus Magnesium Total Bilirubin AST ALT Alkaline Phosphatase Total Protein Albumin Triglycerides Arterial Blood Glucose Arterial Blood Ionized Calcium Digoxin Crossmatch 02/04/21 02/04/21 02/04/21 05:40 09:37 12:03 WBC RBC Hgb Hct MCV MCHC RDW Plt Count Lymph % (Auto) [place] % (Auto) Eos % (Auto) Lymph # (Auto) [place] # (Auto) Eos # (Auto) Seg Neutrophils % Seg Neuts % (Manual) Lymphocytes % (Manual) Monocytes % (Manual) Seg Neutrophils # Seg Neutrophils # Man Lymphocytes # (Manual) Monocytes # (Manual) PT INR ABG pH POC ABG pCO2 POC ABG pO2 ABG pO2 ABG HCO3 ABG O2 Saturation ABG Base Excess ABG Hemoglobin ABG Oxyhemoglobin ABG Sodium ABG Potassium ABG Chloride ABG Glucose Oxyhemoglobin Sodium 131 L D 135 L Potassium 3.0 L 3.1 L Chloride 93.4 L 96.7 L Carbon Dioxide BUN 46 H 52 H Creatinine 6.5 H 7.3 H Glucose 363 H 128 H POC Glucose 129 H Lactic Acid Calcium Phosphorus 2.40 L Magnesium 1.50 L 1.60 L Total Bilirubin AST ALT Alkaline Phosphatase Total Protein Albumin Triglycerides Arterial Blood Glucose Arterial Blood Ionized Calcium Digoxin Crossmatch 02/04/21 02/04/21 02/05/21 17:25 21:38 05:19 WBC RBC Hgb Hct MCV MCHC RDW Plt Count Lymph % (Auto) [place] % (Auto) Eos % (Auto) Lymph # (Auto) [place] # (Auto) Eos # (Auto) Seg Neutrophils % Seg Neuts % (Manual) Lymphocytes % (Manual) Monocytes % (Manual) Seg Neutrophils # Seg Neutrophils # Man Lymphocytes # (Manual) Monocytes # (Manual) PT INR ABG pH POC ABG pCO2 POC ABG pO2 ABG pO2 ABG HCO3 ABG O2 Saturation ABG Base Excess ABG Hemoglobin ABG Oxyhemoglobin ABG Sodium ABG Potassium ABG Chloride ABG Glucose Oxyhemoglobin Sodium Potassium Chloride Carbon Dioxide BUN Creatinine Glucose POC Glucose 132 H 108 H 116 H Lactic Acid Calcium Phosphorus Magnesium Total Bilirubin AST ALT Alkaline Phosphatase Total Protein Albumin Triglycerides Arterial Blood Glucose Arterial Blood Ionized Calcium Digoxin Crossmatch 02/05/21 02/05/21 02/05/21 06:30 11:25 16:20 WBC RBC Hgb Hct MCV MCHC RDW Plt Count Lymph % (Auto) [place] % (Auto) Eos % (Auto) Lymph # (Auto) [place] # (Auto) Eos # (Auto) Seg Neutrophils % Seg Neuts % (Manual) Lymphocytes % (Manual) Monocytes % (Manual) Seg Neutrophils # Seg Neutrophils # Man Lymphocytes # (Manual) Monocytes # (Manual) PT INR ABG pH POC ABG pCO2 POC ABG pO2 ABG pO2 ABG HCO3 ABG O2 Saturation ABG Base Excess ABG Hemoglobin ABG Oxyhemoglobin ABG Sodium ABG Potassium ABG Chloride ABG Glucose Oxyhemoglobin Sodium Potassium 3.2 L Chloride 96.5 L Carbon Dioxide BUN 76 H Creatinine 9.6 H Glucose 112 H POC Glucose 118 H 123 H Lactic Acid Calcium Phosphorus Magnesium 1.50 L Total Bilirubin AST ALT Alkaline Phosphatase 177 H Total Protein 6.0 L Albumin 2.9 L Triglycerides Arterial Blood Glucose Arterial Blood Ionized Calcium Digoxin Crossmatch 02/06/21 02/06/21 02/06/21 05:42 06:42 08:18 WBC RBC Hgb Hct MCV MCHC RDW Plt Count Lymph % (Auto) [place] % (Auto) Eos % (Auto) Lymph # (Auto) [place] # (Auto) Eos # (Auto) Seg Neutrophils % Seg Neuts % (Manual) Lymphocytes % (Manual) Monocytes % (Manual) Seg Neutrophils # Seg Neutrophils # Man Lymphocytes # (Manual) Monocytes # (Manual) PT INR ABG pH POC ABG pCO2 POC ABG pO2 ABG pO2 ABG HCO3 ABG O2 Saturation ABG Base Excess ABG Hemoglobin ABG Oxyhemoglobin ABG Sodium ABG Potassium ABG Chloride ABG Glucose Oxyhemoglobin Sodium 133 L Potassium Chloride 92.7 L Carbon Dioxide 19 L BUN 100 H Creatinine 11.9 H Glucose 114 H POC Glucose 118 H 114 H Lactic Acid Calcium Phosphorus 4.70 H Magnesium 1.60 L Total Bilirubin AST ALT Alkaline Phosphatase Total Protein Albumin Triglycerides Arterial Blood Glucose Arterial Blood Ionized Calcium Digoxin Crossmatch 02/06/21 02/07/21 02/07/21 23:22 04:35 04:35 WBC RBC 2.52 L Hgb 8.0 L Hct 22.5 L MCV MCHC 36 H RDW 16.7 H Plt Count Lymph % (Auto) 12.7 L [place] % (Auto) 10.2 H Eos % (Auto) 5.0 H Lymph # (Auto) [place] # (Auto) 1.0 H Eos # (Auto) 0.5 H Seg Neutrophils % 71.6 H Seg Neuts % (Manual) Lymphocytes % (Manual) Monocytes % (Manual) Seg Neutrophils # Seg Neutrophils # Man Lymphocytes # (Manual) Monocytes # (Manual) PT INR ABG pH POC ABG pCO2 POC ABG pO2 ABG pO2 ABG HCO3 ABG O2 Saturation ABG Base Excess ABG Hemoglobin ABG Oxyhemoglobin ABG Sodium ABG Potassium ABG Chloride ABG Glucose Oxyhemoglobin Sodium 135 L Potassium 3.4 L Chloride 95.5 L Carbon Dioxide BUN 59 H Creatinine 8.5 H Glucose POC Glucose 117 H Lactic Acid Calcium Phosphorus Magnesium Total Bilirubin AST ALT Alkaline Phosphatase Total Protein Albumin Triglycerides Arterial Blood Glucose Arterial Blood Ionized Calcium Digoxin Crossmatch 02/07/21 02/07/21 02/07/21 04:35 11:31 22:49 WBC RBC Hgb Hct MCV MCHC RDW Plt Count Lymph % (Auto) [place] % (Auto) Eos % (Auto) Lymph # (Auto) [place] # (Auto) Eos # (Auto) Seg Neutrophils % Seg Neuts % (Manual) Lymphocytes % (Manual) Monocytes % (Manual) Seg Neutrophils # Seg Neutrophils # Man Lymphocytes # (Manual) Monocytes # (Manual) PT INR ABG pH POC ABG pCO2 POC ABG pO2 ABG pO2 ABG HCO3 ABG O2 Saturation ABG Base Excess ABG Hemoglobin ABG Oxyhemoglobin ABG Sodium ABG Potassium ABG Chloride ABG Glucose Oxyhemoglobin Sodium Potassium Chloride Carbon Dioxide BUN Creatinine Glucose POC Glucose 117 H 122 H Lactic Acid Calcium Phosphorus Magnesium 1.60 L Total Bilirubin AST ALT Alkaline Phosphatase Total Protein Albumin Triglycerides Arterial Blood Glucose Arterial Blood Ionized Calcium Digoxin Crossmatch 02/08/21 02/08/21 02/08/21 04:56 06:45 22:38 WBC RBC Hgb Hct MCV MCHC RDW Plt Count Lymph % (Auto) [place] % (Auto) Eos % (Auto) Lymph # (Auto) [place] # (Auto) Eos # (Auto) Seg Neutrophils % Seg Neuts % (Manual) Lymphocytes % (Manual) Monocytes % (Manual) Seg Neutrophils # Seg Neutrophils # Man Lymphocytes # (Manual) Monocytes # (Manual) PT INR ABG pH POC ABG pCO2 POC ABG pO2 ABG pO2 ABG HCO3 ABG O2 Saturation ABG Base Excess ABG Hemoglobin ABG Oxyhemoglobin ABG Sodium ABG Potassium ABG Chloride ABG Glucose Oxyhemoglobin Sodium 134 L Potassium 3.5 L Chloride 94.2 L Carbon Dioxide BUN 78 H Creatinine 11.4 H Glucose 101 H POC Glucose 113 H 128 H Lactic Acid Calcium Phosphorus Magnesium Total Bilirubin AST ALT Alkaline Phosphatase Total Protein Albumin Triglycerides Arterial Blood Glucose Arterial Blood Ionized Calcium Digoxin Crossmatch 02/09/21 02/09/21 04:43 07:44 WBC RBC Hgb Hct MCV MCHC RDW Plt Count Lymph % (Auto) [place] % (Auto) Eos % (Auto) Lymph # (Auto) [place] # (Auto) Eos # (Auto) Seg Neutrophils % Seg Neuts % (Manual) Lymphocytes % (Manual) Monocytes % (Manual) Seg Neutrophils # Seg Neutrophils # Man Lymphocytes # (Manual) Monocytes # (Manual) PT INR ABG pH POC ABG pCO2 POC ABG pO2 ABG pO2 ABG HCO3 ABG O2 Saturation ABG Base Excess ABG Hemoglobin ABG Oxyhemoglobin ABG Sodium ABG Potassium ABG Chloride ABG Glucose Oxyhemoglobin Sodium 135 L Potassium 3.2 L Chloride 93.0 L Carbon Dioxide BUN 42 H Creatinine 8.1 H Glucose 128 H POC Glucose 115 H Lactic Acid Calcium Phosphorus 2.20 L D Magnesium Total Bilirubin AST ALT Alkaline Phosphatase Total Protein Albumin Triglycerides Arterial Blood Glucose Arterial Blood Ionized Calcium Digoxin Crossmatch Allied health notes reviewed: nursing
--- NOTE | 2021-02-09 16:15 | Progress Note ---
Assessment and Plan Assessment: * ESRD previously on peritoneal dialysis; now on back up HD (on peritoneal dialysis for 2 years) * Small bowel obstruction --s/p ex-lap with jejuno-ileal anastamosis --s/p ex lap with extensive lysis of adhesions and two small bowel resections with primary anastamosis for SBO with necrotic segment small bowel. --s/p ex lap, resection of perforated anastamosis, washout and abthera wound vac placement. --s/p ex lap with right hemicolectomy. * Acute respiratory failure, s/p extubation * Septic shock - resolved * Bacteremia - resolved * Anemia of ESRD * Atrial fibrilation, new onset * Post op ileus Plan: * Continue HD MWF via left IJ permcath (12/27) * 3K bath with dialysis * Decreased UF while experiencing ongoing diarrhea * Epogen 10k units w/ dialysis * Rate control per cardiology * Nutrition per primary team * Maintatin MAP >65 * Surgery notes reviewed * He will also require outpatient hemodialysis chair prior to discharge * Elevated BUN likely secondary to catabolic state. Continue increased dialysis time - 4 hours. Subjective Date of service: 02/09/21 Principal diagnosis: Ac hypoxemic resp failure; Severe Sepsis; Peritonitis; Acute SBO; ESRD; CHF Interval history: Notes persistent diarrhea. No complications with HD. Objective - Exam Narrative Exam: General appearance: NAD Eyes: anicteric sclerae HENT: Normocephalic, Atraumatic Neck: supple, tracheal midline, no JVD Lungs: CTAB CV: RRR Abdomen: Soft, distended, periumbilical tenderness Extremities: no edema, no cyanosis Skin: No rash. Psych: Calm Neuro: Following commands - Vital Signs Vital signs: Vital Signs - 12hr 02/09/21 02/09/21 02/09/21 04:40 05:06 05:09 Temperature 98.7 F Pulse Rate 85 89 89 Respiratory 18 Rate Blood Pressure 127/68 127/68 127/68 Blood Pressure [Right] O2 Sat by Pulse 99 Oximetry 02/09/21 02/09/21 02/09/21 07:00 10:07 14:41 Temperature 98.4 F 98.0 F Pulse Rate 87 68 82 Respiratory 16 20 Rate Blood Pressure 123/62 148/79 Blood Pressure 135/62 [Right] O2 Sat by Pulse 100 98 Oximetry - Lab 02/07/21 04:35 02/09/21 07:44 Most recent lab results ABG pH 7.345 pH Units (7.350-7.450) L 01/07/21 17:14 ABG pCO2 40.3 mm Hg 01/07/21 17:14 ABG pO2 67.4 mm Hg (80.0-90.0) L 01/07/21 17:14 ABG HCO3 21.5 mmol/L (20.0-26.0) 01/07/21 17:14 ABG O2 Saturation 94.3 % (95.0-99.0) L 01/07/21 17:14 Calcium 8.7 mg/dL (8.4-10.2) 02/09/21 07:44 Phosphorus 2.20 mg/dL (2.5-4.5) L D 02/09/21 07:44 Magnesium 2.10 mg/dL (1.7-2.3) 02/09/21 07:44 Medications & Allergies - Medications Allergies/Adverse Reactions: Allergies No Known Allergies Allergy (Verified 06/09/20 15:27) Home Medications: Home Medications Medication Instructions Recorded Confirmed Last Taken Type Albuterol Mdi (or & Nicu Only) 2 puff IH QID PRN #1 inhalation 04/01/17 02/05/21 10/31/20 09:00 Rx [ProAir HFA Inhaler] Calcium Acetate 667 mg PO DAILY 04/20/20 02/05/21 10/31/20 09:00 History Centrum Men's Tablet 1 tab PO DAILY 04/20/20 02/05/21 10/31/20 09:00 History Cinacalcet 30 mg PO DAILY 04/20/20 02/05/21 10/31/20 09:00 History Dialyvite with Zinc Tablet 1 tab PO DAILY 04/20/20 02/05/21 10/31/20 09:00 History Magnesium 250 mg PO BID 04/20/20 02/05/21 10/31/20 17:00 History Triamcinolone 0.1% 1 1000units TRANSDERMA DAILY 04/20/20 02/05/21 10/31/20 09:00 History Vit B12/Folic Acid/B6/Aa No.15 1,000 mg PO DAILY 04/20/20 02/05/21 10/31/20 09:00 History amLODIPine 10 mg PO DAILY 06/09/20 02/05/21 10/31/20 09:00 History AtorvaSTATin 40 mg PO HS 11/01/20 02/05/21 10/31/20 21:00 History Benadryl 25 mg PO HS 11/01/20 02/05/21 10/31/20 21:00 History Diclofenac 1 applic TRANSDERMA QID 11/01/20 02/05/21 10/31/20 19:00 History Fluticasone Propionate 1 spray INTRANASAL DAILY 11/01/20 02/05/21 10/31/20 09:00 History Vitamin D3 2,000 units PO QDAY 11/01/20 02/05/21 10/31/20 09:00 History carvediloL 12.5 mg PO DAILY 11/01/20 02/05/21 10/31/20 09:00 History hydrALAZINE 100 mg PO TID 11/01/20 02/05/21 10/31/20 19:00 History Active Medications: Generic Name Dose Route Start Last Admin Trade Name Freq PRN Reason Stop Dose Admin Acetaminophen 650 mg 12/31/20 15:30 01/21/21 05:28 Acetaminophen 650 Mg Rect Supp [place] 650 mg Q6H PRN Administration Non Cardiac Pain or Temp>100.5 Clonidine HCl 0.2 mg 01/11/21 10:00 02/08/21 10:00 Clonidine Tts 0.2 Mg/24 Hr Patch TD Not Given We THOMAS Dextrose 50 ml 01/14/21 17:59 01/18/21 15:10 Dextrose 50% In Water (25gm) 50 Ml Syringe IV 20 ml Q30MIN PRN Administration Hypoglycemia Protocol Digoxin 0.125 mg 02/04/21 10:00 02/08/21 10:00 Digoxin 0.125 Mg Tab PO Not Given Q48HR THOMAS Diphenhydramine HCl 50 mg 01/20/21 10:10 02/01/21 14:15 Diphenhydramine 50 Mg/Ml Vial IV 50 mg Q6H PRN Administration Itching Diphenoxylate HCl/Atropine 1 tab 02/06/21 18:00 02/09/21 05:08 Diphenoxylate/Atropine Tab PO Not Given Q6H THOMAS Famotidine 10 mg 12/24/20 13:00 02/09/21 10:07 Famotidine 20 Mg/2 Ml Inj IV 10 mg BID THOMAS Administration Fluticasone Propionate 50 mcg 02/07/21 10:00 02/09/21 10:11 Fluticasone Propionate Nasal [place] 16 Gm NS 50 mcg QDAY THOMAS Administration Haloperidol Lactate 5 mg 12/29/20 14:16 01/22/21 23:56 Haloperidol Lactate 5 Mg/1 Ml Inj IV 5 mg Q12H PRN Administration Agitation Heparin Sodium (Porcine) 5,000 unit 12/24/20 10:00 02/09/21 10:08 Heparin 5,000 Unit/1 Ml Vial SUB-Q 5,000 unit Q12HR THOMAS Administration Hydralazine HCl 10 mg 01/10/21 14:00 02/09/21 15:49 Hydralazine 20 Mg/1 Ml Inj IV 10 mg Q4HR THOMAS Administration Hydrocortisone Acetate 1 applic 02/01/21 18:43 Hydrocortisone 1% Cream 28.4gm TP Q8H PRN Skin Irritation Hydromorphone HCl 0.25 mg 01/09/21 10:53 02/09/21 05:04 Hydromorphone 1 Mg/1 Ml Inj IV 0.25 mg Q6H PRN Administration Pain , Severe (7-10) Sodium Chloride 100 mls @ 999 mls/hr 01/27/21 18:37 Nacl 0.9% IV [place] PRN Hypotension Amino Acids/Electrolytes/Dextrose 2,016 mls @ 84 mls/hr 02/08/21 20:00 02/08/21 22:23 Tpn Adult IV 02/09/21 17:59 84 mls/hr [email or web address] [facility] Administration Protocol Amino Acids/Electrolytes/Dextrose 2,016 mls @ 84 mls/hr 02/09/21 20:00 Tpn Adult IV 02/10/21 19:59 [email or web address] [facility] Protocol Insulin Glargine 5 units 01/18/21 22:00 02/08/21 22:46 Insulin Glargine 100 Units/Ml SUB-Q 5 units QHS THOMAS Administration Insulin Human Lispro 0 unit 01/03/21 12:00 02/09/21 12:35 Insulin Lispro 100 Unit/Ml SUB-Q Not Given Q6HR [facility] Protocol Metoprolol Tartrate 5 mg 12/30/20 12:00 02/09/21 15:50 Metoprolol Tartrate 5 Mg/5 Ml Inj IV 5 mg Q4HR THOMAS Administration Morphine Sulfate 2 mg 02/02/21 12:00 02/03/21 13:31 Morphine 2 Mg/1 Ml Inj IV 2 mg Q3H PRN Administration Pain, Moderate (4-6) Ondansetron HCl 4 mg 01/25/21 11:56 02/08/21 12:44 Ondansetron 4 Mg/2 Ml Inj IV 4 mg Q4H PRN Administration Nausea And Vomiting Scopolamine 1 each 01/15/21 11:00 02/08/21 10:00 Scopolamine Transdermal Patch 72 Hr TD Not Given Q3D THOMAS Sodium Chloride 10 ml 12/22/20 22:00 02/09/21 10:09 Sodium Chloride 0.9% 10 Ml Flush Syringe IV 10 ml BID THOMAS Administration Sodium Chloride 10 ml 12/22/20 19:42 01/29/21 02:08 Sodium Chloride 0.9% 10 Ml Flush Syringe IV 10 ml PRN PRN Administration LINE FLUSH
[2021-02-09] MEDS ORDERED: TOTAL PARENTERAL NUTRITION 2,016 ML IV SCH ×2 (20:00)
[2021-02-09] MEDS: INSULIN GLARGINE 100 UNITS/ML SUB-Q SCH (22:20)
[2021-02-10] MEDS: INSULIN LISPRO 100 UNIT/ML SUB-Q SCH ×4 (02:44→17:29)
[2021-02-10] MEDS: METOPROLOL TARTRATE 5 MG/5 ML INJ IV SCH ×6 (03:12→22:03)
[2021-02-10] MEDS: DIPHENOXYLATE/ATROPINE TAB PO SCH ×5 (03:13→21:13)
[2021-02-10] MEDS: hydrALAZINE 20 MG/1 ML INJ IV SCH ×6 (03:13→21:02)
[2021-02-10 07:38] LABS: Calcium 9.1 mg/dL (8.4-10.2)
--- NOTE | 2021-02-10 09:52 | Progress Note ---
Assessment and Plan Assessment and plan: Severe Sepsis with shock Streptococcus bovis bacteremia/Prevotella bacteremia Gwendolyn albicans tracheal aspirate Small bowel obstruction/necrotic bowel s/p ex lap with extensive lysis of adhesions, 2 small bowel resections with primary anastomosis, right hemicolectomy, jejunal colonic anastomosis, segmental small bowel resection Postoperative ileus Atrial fibrillation with RVR Leukocytosis Hypochloremia Gwendolyn albicans in tracheal aspirate from 12/24 ESRD on PD, PermCath to be placed Transaminitis Systolic CHF(EF 35%) Crohn's disease Hypertension Hypokalemia and hypophosphatemia -[facility], surgery, infectious disease, nephrology, vascular surgery, cardiology consulted, appreciate recommendations -12/24 S/p ex lap with extensive expectations, 2 small bowel resections with primary anastomosis with surgery on 12/23 -s/p PICC and Permacath placement with vascular surgery on 12/27 -Extubated on 12/28, reintubated 12/31 for respiratory distress and extubated 01/08 -12/29 echocardiogram shows moderate concentric LVH, small pericardial effusion, transmitral Doppler flow pattern is grade 1 abnormal relaxation pattern, left- ventricular systolic function normal, LVEF 50 to 55%, no wall motion abnormalities. -01/01 CT abdomen/pelvis shows small pericardial effusion, mild coronary artery atherosclerotic calcification, small bilateral pleural effusions with associated volume loss, no convincing evidence of bowel obstruction or inflammation, postoperative changes from interval/recent midline laparotomy with a moderate amount of free fluid throughout the abdomen, small amount of dependent free air presumably postoperative -01/02 s/p ex lap, resection of perforated anastamosis, washout and abthera wound vac placement. -01/04 s/p ex lap with right hemicolectomy. -01/06 s/p exploratory laparotomy, Jejunal colonic anastomosis, Segmental small bowel resection. -s/p Vasopressor support with Levophed and vasopressin -Transitioned to HD from PD -HD per nephro, Epogen with HD -Strict NPO -cont TPN, Octreotide drip -s/p NGT to LIWS, now placed on G-tube for decompression - s/p rectal tube -s/p IV antibiotics -Tobacco abuse cessation counseling -Trend CBC, BMP DVT/GI prophylaxis: PPI, heparin subcu, SCDs to bilateral lower extremities while in bed Brief Course: This is a 60 YO Male with ESRD on PD, GERD, Crohn's Disease, Nicotine Dependence, HTN, Systolic CHF(EF 35%) who presented to the emergency department on 12/22 with complaints of abdominal pain which began shortly after eating fast food rated 10/10 which is periumbilical, constant, associated with fever, nausea and multiple sites of vomiting and self-reported inability to undergo PD. In the emergency room patient underwent a CT scan of the abdomen/pelvis which revealed evidence of partial small bowel obstruction, symptoms were consistent with bacterial peritonitis. Patient was admitted to the hospital service with sepsis, peritonitis, and small bowel obstruction with consults to general surgery, nephrology, infectious disease and [facility]. Daily clinical course: 12/23. Patient had temperature 101.2 F, tachycardia and elevated lactic acid on admission. Meet sepsis criteria. Started on IV antibiotics. ID has been consulted. Surgery consulted this a.m.-advised laparoscopy. He remains on NG tube connected to suction. 12/24. Patient was noted to have peritonitis yesterday and patient undergoing exploratory laparotomy. Patient remained intubated after procedure and is in ICU. Now on broad-spectrum antibiotics. ID on board. 12/25. Remains mechanically ventilated and sedated. Temp 103 Fahrenheit. Antibiotics broadened-ID added fluconazole and Flagyl. Blood cultures ordered. Plan to repeat CT abdomen tomorrow if not better. Surgery following. 12/26: Patient remains on mechanical ventilation on CMV tidal line 550, rate of 14, PEEP of 8 and 30% FiO2 and sedated on fentanyl 4 micrograms. Today we will remove his Jeffery and [facility] dropped his rate controlled him on CPAP. We will trend CBC given recent drop in H/H. 12/27: Patient remains intubated on CMV tidal volume 550, rate 12, PEEP 8 on 30% FiO2 at the time my examination. Patient's TPN will be changed to PPN. Adebayo dueñas's fentanyl drip will be changed to IV push fentanyl and have a permacath placed today and midline. Patient was placed on a spontaneous breathing trial was switched back to CMV prior to procedure. 12/28: Patient on fentanyl but awake and follows commands. At the time of my examination he was on a CPAP trial and is scheduled to receive HD today. s/o permacath and PICC placement with vascular yesterday. His blood culture grew Prevotella and addition to Streptococcus bovis. This evening Dr. Spicer attempted to extubate the patient and his heart rate went to the 180s. Stat EKG obtained and cardiology consulted. 12/29: Patient was started on amiodarone IV for A. fib RVR yesterday and today he is more rate controlled into the 70s and 80s. Patient was extubated yesterday and is currently on Ventimask. Patient will be transferred to [facility]. Patient continues to be n.p.o. with TPN and NG tube to LIS. He is hypokalemic today which was repleted. 12/30; patient was on IV amiodarone for treatment with RVR, rate is controlled. Patient was off oxygen. patient is n.p.o. and on TPN. Surgery is following the patient. 12/31: Patient was intubated overnight for respiratory distress and this morning on examination he was on assist control tidal volume 450, rate 20, PEEP 6, 100% FiO2 and RT was getting a ABG to adjust vent settings. Patient had a acute bump in WBC and per ID recommendations we will obtain a CT abdomen/pelvis if leukocytosis persist. Patient is on TPN and sedated with Levophed. Patient is also on vasopressor support with Levophed. Per surgery his ileus is resolving however will maintain OGT to LIWS. 01/01: Patient was started on a vasopressin yesterday late evening. This morning patient is on 20 mcg of Levophed and 0.03 vasopressin and sedated on 20 mcg of propofol. Patient WBC increased today and he is hypokalemic. We will treat hyperkalemia. Patient had a CT chest and abdomen/pelvis pending. The time examination total of 450, rate 20, PEEP of 6 and 35 percent FiO2. Per RN, Dr Pollock has stated that the patient will be returning to the OR today for likely anastomosis seen on CT abdomen/pelvis. 01/02: Patient noted, WBC improving, but noted to have anemia, will transfuse additional unit of Blood and repeat H/H. continue supportive care. 01/03: Continue to wean pressors, ABX PER ID, patient to return to OR today for washout and possible closure, CONTINUE TPN 01/04: Continues to show some improvement. Today is POD#12 s/p ex lap with extensive lysis of adhesions and two small bowel resections with primary anastamosis for SBO with necrotic segment small bowel. POD#3 s/p ex lap, resection of perforated anastamosis, washout and abthera wound vac placement. POD#1 s/p ex lap with right hemicolectomy. Surgery planning to take back to the OR on Saturday with the hope to anastamos ileum to transverse colon and close abdomen. keep NGT to suction. Pt in deep sedation due to open abdomen. Per ID - Continue IV Zosyn, renally dosed for Strep bacteremia treatment till 01/06/2021 -On TPN 01/05: Patient continues on HD, anticipate return to OR tomorrow for closure and anastemosis. Continues with deep sedation due to open abdomen 01/06: Continue supportive care, monitor pressures and electrolytes. He is post op Exploratory laparotomy, 2. Jejunal colonic anastomosis,3. Segmental small bowel resection and anastemosis closure today. Continue wound vac 01/07: Continue supportive care, Today is POD#15 s/p ex lap with extensive lysis of adhesions and two small bowel resections with primary anastamosis for SBO wit h necrotic segment small bowel. POD#6 s/p ex lap, resection of perforated anastamosis, washout and abthera wound vac placement. POD#4 s/p ex lap with right hemicolectomy. POD #1 exploratory laparotomy, 2. Jejunal colonic anastomosis,3. Segmental small bowel resection. Continue to monitor and sruthi ect electrolytes. Patient remains on fentanyl and TPN with lipids. Still hypoactive bowel sounds. 16: Patient now extubated, asked when he can go home, Still lethargic. Continue wound management, wound vac, Will need Rehab eval prior to discharge. 01/09: Patient remains on TPN, was started on labetalol drip per cardiology, patient had uncontrolled hypertension today however he cannot be given p.o. medications ileus resolves per surgery. Patient received hemodialysis today. NG tube remains to low intermittent suction. 01/10: Patient has some leukocytosis, slight hypokalemia and hyponatremia, metabolic acidosis. NG tube to LIWS, continue TPN. Patient will be downgraded to IMCU today. [facility] is working on placement. Will change frequency of hydralazine and discontinue labetalol drip. We will obtain a.m. BMP/mag/Phos and CBC. Infectious disease will like to start Zosyn if leukocytosis continues to worsen. 01/11: Patient leukocytosis has slightly improved potassium with in normal limits and other electrolytes are elevated but patient is scheduled for HD today. Remains on RA and A,A,Ox4. BP better controlled but remains elevated and we will increase clonidine dose. 01/12/2021; patient's blood pressure is better after dialysis and as needed IV medications and clonidine patch. Patient is followed by general surgery. Patient was alert and oriented and asked when he is going home. 01/13: Surgery is concerned about a leak at his anastamosis given increased output and will treat as controlled fistula and start an octreotide drip. And per surgery if he requires operative intervention will likely need to be left in discontinuity and eventual ileostomy as he has already failed two anastamoses. Patient still has tongue swelling and slurred speech. He is on Benadryl. 01/14: Patient's tongue swelling is improved, patient is alert and oriented, CAM ICU negative. Continue NG tube to low wall intermittent suction. Leukocytosis is improving. Hypomagnesemia resolved. Epogen with HD 01/15: Patient tongue swelling is much improved, bladder scan completed by bedside RN and he needed to be straight cathed. NGT output decreased. Leukocytosis improving. Patient has been having episodes of hypoglycemia during the day and he is on cyclic TPN, Lantus rescheduled to nightly and dosage decreased. 01/16: Continue management per ID and surgery. Will defer repeat CT of the abdomen to the team surgery has been approved by nephrology. Continue current diet and advance all to ice if okay with surgery discussed with nursing staff. 01/17: Discussed surgical recommendation of strict n.p.o. except for small amount of ice as patient has already failed to anastomosis. And risk for additional surgery with tissues were extremely friable from previous scar. He continues on octreotide drip to slow down GI output HARIS drain remains in place with NG suction for decompression. Patient verbalized understanding although stressed about being discharged. We will continue IMCU care unless otherwise advised by surgery. Prognosis remains guarded continue to monitor electrolytes considering GI output. 01/18: Continue supportive care, BP mildly elevated, continue to monitor, con tinue current therapy, if no return to PO soon may consider Increasing clonidine to 0.3, PO when ok with surgery. 01/19:Continue supportive care, Per ID continue IV Zosyn, plan to stop at 3 weeks from last surgery end date: 01/24/2021. Other management per surgery. Continue TPN. 01/20: Discussed with Surgery, will continue current management. Advised patient of the findings and plan. 01/21: Continue supportive care. Continue management per surgery advance diet when okay with surgery. Plan of care discussed with the patient in detail. 01/22: NG tube to be replaced explained to the patient why this is important. I agree with PT OT discussed with nursing staff very important to let the PT team know that they should manage HARIS drain while patient is ambulating so that he does not come out. Continue current management. Change in ocreotide to q8h and d/c drip NOTED 01/23: Continue supportive care, HD today, counselling provided to the patient on compliance with medical management 01/24: Replace NGT, Continue management per Surgery. POD 32. Mild hypokalemia noted, will replace. 01/25: Brief summary patient is a 60-year-old male admitted with abdominal pain and noted to have necrotic bowel concerning for PD associated peritonitis. Catheter was placed to convert to HD. Patient also underwent multiple surgical interventions. Initial cultures showed Streptococcus bovis bacteremia and Prevotella bacteremia a COLIN was without vegetations repeat blood cultures have b een negative. Part of the surgery is included ex lap, resection of perforated anastomosis, washout and a better wound VAC placement on 01/01. While progress has remained slow if has indeed shown some improvement. Patient is agitated about being in the hospital but understands the care management been provided his vital to his health and to prevent further surgeries. The NG tube has been pulled out 2 days ago he vehemently refused the tube being placed back but after a day of nausea with associated vomiting he was accepting of the chest tube to put back. He continues on TPN. We will continue to monitor electrolytes and correct as needed. This a.m. and erroneous blood was obtained likely from the same line as TPN repeat was done which showed normalizing factors. Patient completed antibiotics on 01/25/2020 . 01/26 Patient with severe sepsis with septic shock, small bowel obstruction, necrotic bowel s/p multiple surgeries. He complains of abdominal pain. No fever currently. He asked me when is he going home and i explained that he is not yet stable for discharge 01/27 Patient with severe sepsis with septic shock, small bowel obstruction, necrotic bowel s/p multiple surgeries. He complains of abdominal pain. No fever currently. Paroxysmal atrial fib managed by cardiology 01/28 Patient with severe sepsis with septic shock, small bowel obstruction, necrotic bowel s/p multiple surgeries. No fever currently. No abd pain currently. I discussed with Surgeon, Dr. Pollock. Continue current management. He also has paroxysmal afib, managed by Cardiology. 01/29 Patient with severe sepsis with septic shock, small bowel obstruction, necrotic bowel s/p multiple surgeries. No fever currently. No abd pain currently. I discussed with Surgeon, Dr. Pollock, yesterday. Continue current management. He also has paroxysmal afib, managed by Cardiology. He is on Metoprolol, Digoxin, Clonidine 01/30 Patient with severe sepsis with septic shock, small bowel obstruction, n ecrotic bowel s/p multiple surgeries. Patient is a 60-year-old male admitted with abdominal pain and noted to have necrotic bowel concerning for PD associated peritonitis. Catheter was placed to convert to HD. Patient also underwent multiple surgical interventions. Initial cultures showed Strep tococcus bovis bacteremia and Prevotella bacteremia a COLIN was without vegetations repeat blood cultures have been negative. Part of the surgery is included ex lap, resection of perforated anastomosis, washout and a better wound VAC placement on 01/01. While progress has remained slow if has indeed shown some improvement. Patient is agitated about being in the hospital but understands the care management been provided his vital to his health and to prevent further surgeries. He continues on TPN. No fever currently. Less abdominal pain. Discussed with Surgeon, Dr. Pollock, few days ago. Continue current management. He also has paroxysmal afib, managed by Cardiology. He is on Metoprolol, D igoxin, Clonidine. ESRD on dialysis managed by Nephrology. 01/31: Continue HARIS drain suction. Ongoing treatment for anastomotic leak/controlled low output fistula. Maintain LIWS to NGT and monitor output. continue q 8h ocreotide. cont TPN. Defer to general surgery for NG tube discontinuation. 02/01: planned for g-tube placement for gastric decompression. Removed NG tube today. S/p HD -tolerated well : Status post G-tube placement today, resume TPN, patient is off from rectal tube. Continue supportive care and follow general surgery recommendation for discharge planning. Hemodialysis per schedule 02/03 -02/05: cont TPN, G-tube suction, Continue supportive care and follow general surgery recommendation for discharge planning. Hemodialysis per schedule. 02/06: Per surgery Anastamotic leak slowing down and is a controlled fistula. Continue HARIS drain suction. Since HARIS drain has continued to stay about 10ml over the last several days, plan to continue lower dose of octreotide. continue g-tube to drainage for decompression. continue clear liquids and closely monitor HARIS drain output. patient need LTAC placement. Continue to replace electrolytes and monitor phosphate level 02/07/2021; Per surgery Anastamotic leak slowing down and is a controlled fistula. Continue HARIS drain suction. Since HARIS drain has continued to stay about 10ml over the last several days, plan to continue lower dose of octreotide. continue g-tube to drainage for decompression. continue clear liquids and closely monitor HARIS drain output. patient need LTAC placement. Continue to replace electrolytes and monitor phosphate level. 02/08/2021; patient need to be transferred to LTAC. Patient expressed he wants to go home. 02/09/2021; pending LTAC placement 02/10/2021; pending LTAC placement History Interval history: Patient was seen and evaluated this morning Patient on TPN, tolerated clear liquid diet HARIS tube in place Hospitalist Physical - Physical exam Narrative exam: Patient was not in cardiopulmonary distress The patient appeared well nourished and normally developed. Vital signs as documented. Head exam is unremarkable. No scleral icterus . Neck is without jugular venous distension, thyromegaly, or carotid bruits. Lungs are clear to auscultation. Cardiac exam reveals regular rate and Rhythm. Abdominal exam reveals clean midline surgical laparatomy wound. HARIS tube in place Extremities are nonedematous and both femoral and pedal pulses are normal. CATH LAB NURSE: Alert and oriented 3. No focal weakness. - Constitutional Vitals: Temp Pulse Resp BP Pulse Ox 98.4 F 81 20 128/67 100 02/10/21 05:57 02/10/21 06:00 02/10/21 06:00 02/10/21 06:28 02/10/21 06:00 General appearance: Present: no acute distress HEART Score - HEART Score Troponin: Troponin T 0.021 ng/mL (0.00-0.029) 12/22/20 14:38 Results - Labs CBC & Chem 7: 02/07/21 04:35 02/10/21 06:00 Labs: Laboratory Last Values WBC 9.6 K/mm3 (4.5-11.0) 02/07/21 04:35 RBC 2.52 M/mm3 (3.65-5.03) L 02/07/21 04:35 Hgb 8.0 gm/dl (11.8-15.2) L 02/07/21 04:35 Hct 22.5 % (35.5-45.6) L 02/07/21 04:35 MCV 89 fl (84-94) 02/07/21 04:35 MCH 32 pg (28-32) 02/07/21 04:35 MCHC 36 % (32-34) H 02/07/21 04:35 RDW 16.7 % (13.2-15.2) H 02/07/21 04:35 Plt Count 230 K/mm3 (140-440) 02/07/21 04:35 Lymph % (Auto) 12.7 % (13.4-35.0) L 02/07/21 04:35 [place] % (Auto) 10.2 % (0.0-7.3) H 02/07/21 04:35 Eos % (Auto) 5.0 % (0.0-4.3) H 02/07/21 04:35 Baso % (Auto) 0.5 % (0.0-1.8) 02/07/21 04:35 Lymph # (Auto) 1.2 K/mm3 (1.2-5.4) 02/07/21 04:35 [place] # (Auto) 1.0 K/mm3 (0.0-0.8) H 02/07/21 04:35 Eos # (Auto) 0.5 K/mm3 (0.0-0.4) H 02/07/21 04:35 Baso # (Auto) 0.0 K/mm3 (0.0-0.1) 02/07/21 04:35 Add Manual Diff Complete 01/10/21 09:26 Total Counted 100 01/10/21 09:26 Seg Neutrophils % 71.6 % (40.0-70.0) H 02/07/21 04:35 Seg Neuts % (Manual) 95.0 % (40.0-70.0) H 01/10/21 09:26 Band Neutrophils % 1.0 % 01/10/21 09:26 Lymphocytes % (Manual) 3.0 % (13.4-35.0) L 01/10/21 09:26 Reactive Lymphs % (Man) 1.0 % 12/29/20 05:16 Monocytes % (Manual) 1.0 % (0.0-7.3) 01/10/21 09:26 Eosinophils % (Manual) 2.0 % (0.0-4.3) 12/29/20 05:16 Metamyelocytes % 2.0 % 12/29/20 05:16 Nucleated RBC % Not Reportable 01/10/21 09:26 Seg Neutrophils # 6.9 K/mm3 (1.8-7.7) 02/07/21 04:35 Seg Neutrophils # Man 17.3 K/mm3 (1.8-7.7) H 01/10/21 09:26 Band Neutrophils # 0.2 K/mm3 01/10/21 09:26 Lymphocytes # (Manual) 0.5 K/mm3 (1.2-5.4) L 01/10/21 09:26 Abs React Lymphs (Man) 0.0 K/mm3 01/10/21 09:26 Monocytes # (Manual) 0.2 K/mm3 (0.0-0.8) 01/10/21 09:26 Eosinophils # (Manual) 0.0 K/mm3 (0.0-0.4) 01/10/21 09:26 Basophils # (Manual) 0.0 K/mm3 (0.0-0.1) 01/10/21 09:26 Metamyelocytes # 0.0 K/mm3 01/10/21 09:26 Myelocytes # 0.0 K/mm3 01/10/21 09:26 Promyelocytes # 0.0 K/mm3 01/10/21 09:26 Blast Cells # 0.0 K/mm3 01/10/21 09:26 WBC Morphology Not Reportable 01/10/21 09:26 Hypersegmented Neuts Not Reportable 01/10/21 09:26 Hyposegmented Neuts Not Reportable 01/10/21 09:26 Hypogranular Neuts Not Reportable 01/10/21 09:26 Smudge Cells Not Reportable 01/10/21 09:26 Toxic Granulation 1+ 01/10/21 09:26 Toxic Vacuolation Not Reportable 01/10/21 09:26 Dohle Bodies Not Reportable 01/10/21 09:26 Pelger-Huet Anomaly Not Reportable 01/10/21 09:26 Lamar Rods Not Reportable 01/10/21 09:26 Platelet Estimate Consistent w auto 01/10/21 09:26 Clumped Platelets Not Reportable 01/10/21 09:26 Plt Clumps, EDTA Not Reportable 01/10/21 09:26 Large Platelets Not Reportable 01/10/21 09:26 Giant Platelets Not Reportable 01/10/21 09:26 Platelet Satelliting Not Reportable 01/10/21 09:26 Plt Morphology Comment Not Reportable 01/10/21 09:26 RBC Morphology Not Reportable 01/10/21 09:26 Dimorphic RBCs Not Reportable 01/10/21 09:26 Polychromasia Not Reportable 01/10/21 09:26 Hypochromasia Not Reportable 01/10/21 09:26 Poikilocytosis Not Reportable 01/10/21 09:26 Anisocytosis 1+ 01/10/21 09:26 Microcytosis Not Reportable 01/10/21 09:26 Macrocytosis Not Reportable 01/10/21 09:26 Spherocytes Not Reportable 01/10/21 09:26 Pappenheimer Bodies Not Reportable 01/10/21 09:26 Sickle Cells Not Reportable 01/10/21 09:26 Target Cells Not Reportable 01/10/21 09:26 Tear Drop Cells Not Reportable 01/10/21 09:26 Ovalocytes Not Reportable 01/10/21 09:26 Helmet Cells Not Reportable 01/10/21 09:26 [place] Bodies Not Reportable 01/10/21 09:26 [place] Rings Not Reportable 01/10/21 09:26 Windfall Cells Not Reportable 01/10/21 09:26 Bite Cells Not Reportable 01/10/21 09:26 Crenated Cell Not Reportable 01/10/21 09:26 Elliptocytes Not Reportable 01/10/21 09:26 Acanthocytes (Spur) Not Reportable 01/10/21 09:26 Rouleaux Not Reportable 01/10/21 09:26 Hemoglobin C Crystals Not Reportable 01/10/21 09:26 Schistocytes Not Reportable 01/10/21 09:26 Malaria parasites Not Reportable 01/10/21 09:26 [place] Bodies Not Reportable 01/10/21 09:26 Hem Pathologist Commnt No 01/10/21 09:26 PT 16.9 Sec. (12.2-14.9) H 01/01/21 12:45 INR 1.39 (0.87-1.13) H 01/01/21 12:45 APTT 25.1 Sec. (24.2-36.6) 12/22/20 14:38 ABG pH 7.345 pH Units (7.350-7.450) L 01/07/21 17:14 POC ABG pCO2 41.4 mmHg (32.0-48.0) 01/07/21 03:07 ABG pCO2 40.3 mm Hg 01/07/21 17:14 POC ABG pO2 94.5 mmHg (83-108) 01/07/21 03:07 ABG pO2 67.4 mm Hg (80.0-90.0) L 01/07/21 17:14 POC ABG HCO3 22.7 01/07/21 03:07 ABG HCO3 21.5 mmol/L (20.0-26.0) 01/07/21 17:14 ABG O2 Saturation 94.3 % (95.0-99.0) L 01/07/21 17:14 ABG O2 Content 11.6 (0.0-44) 01/07/21 17:14 POC ABG Base Excess -2.7 01/07/21 03:07 ABG Base Excess -3.9 mmol/L (-2.0-3.0) L 01/07/21 17:14 ABG Hemoglobin 8.9 gm/dl (14.0-18.0) L 01/07/21 17:14 ABG Oxyhemoglobin 96.6 (94-98) 01/07/21 03:07 ABG Carboxyhemoglobin 1.5 % (0.0-5.0) 01/07/21 17:14 ABG Methemoglobin 0.6 % (0.0-1.5) 01/07/21 17:14 ABG Sodium 135.6 mmol/L (136.0-145.0) L 01/07/21 03:07 ABG Potassium 4.0 mmol/L (3.40-4.50) 01/07/21 03:07 ABG Chloride 102.0 mmol/L (98-107) 01/07/21 03:07 ABG Glucose 181 mg/dL (65-95) H 01/07/21 03:07 Oxyhemoglobin 92.3 % (95.0-99.0) L 01/07/21 17:14 Carboxyhemoglobin 0.7 (0.5-1.5) 01/07/21 03:07 FiO2 21 % 01/07/21 17:14 FiO2 % 45.0 01/07/21 03:07 Sodium 138 mmol/L (137-145) 02/10/21 06:00 Potassium 3.6 mmol/L (3.6-5.0) 02/10/21 06:00 Chloride 95.4 mmol/L (98-107) L 02/10/21 06:00 Carbon Dioxide 26 mmol/L (22-30) 02/10/21 06:00 Anion Gap 20 mmol/L 02/10/21 06:00 BUN 65 mg/dL (9-20) H 02/10/21 06:00 Creatinine 10.2 mg/dL (0.8-1.3) H 02/10/21 06:00 Estimated GFR 6 ml/min 02/10/21 06:00 BUN/Creatinine Ratio 6 % 02/10/21 06:00 Glucose 114 mg/dL (75-100) H 02/10/21 06:00 POC Glucose 111 mg/dL (70-105) H 02/10/21 06:21 Lactic Acid 1.10 mmol/L (0.7-2.0) 01/14/21 05:39 Calcium 9.1 mg/dL (8.4-10.2) 02/10/21 06:00 Phosphorus 2.20 mg/dL (2.5-4.5) L 02/10/21 06:00 Magnesium 2.80 mg/dL (1.7-2.3) H 02/10/21 06:00 Total Bilirubin 0.50 mg/dL (0.1-1.2) 02/05/21 06:30 AST 19 units/L (5-40) 02/05/21 06:30 ALT 22 units/L (7-56) 02/05/21 06:30 Alkaline Phosphatase 177 units/L (35-129) H 02/05/21 06:30 Ammonia 30.0 umol/L (25-60) 12/22/20 14:38 Troponin T 0.021 ng/mL (0.00-0.029) 12/22/20 14:38 Total Protein 6.0 g/dL (6.3-8.2) L 02/05/21 06:30 Albumin 2.9 g/dL (3.9-5) L 02/05/21 06:30 Albumin/Globulin Ratio 0.9 % 02/05/21 06:30 Triglycerides 72 mg/dL (2-149) 01/30/21 04:15 Lipase 41 units/L (13-60) 12/22/20 14:38 Procalcitonin > 200.00 ng/mL (<0.15) 12/24/20 15:06 TSH 1.470 mlU/mL (0.270-4.200) 12/28/20 19:44 Arterial Blood Glucose 181 mg/dL (65-95) H 01/07/21 03:07 Arterial Blood Ionized Calcium 4.3 mg/dL (4.6-5.3) L 01/07/21 03:07 Urine Color Yellow (Yellow) 12/22/20 18:53 Urine Turbidity Clear (Clear) 12/22/20 18:53 Urine pH 7.0 (5.0-7.0) 12/22/20 18:53 Ur Specific Rogers 1.012 (1.003-1.030) 12/22/20 18:53 Urine Protein >500 mg/dL (Negative) 12/22/20 18:53 Urine Glucose (UA) Neg mg/dL (Negative) 12/22/20 18:53 Urine Ketones Neg mg/dL (Negative) 12/22/20 18:53 Urine Blood Neg (Negative) 12/22/20 18:53 Urine Nitrite Neg (Negative) 12/22/20 18:53 Urine Bilirubin Neg (Negative) 12/22/20 18:53 Urine Urobilinogen < 2.0 mg/dL (<2.0) 12/22/20 18:53 Ur Leukocyte Esterase Neg (Negative) 12/22/20 18:53 Urine WBC (Auto) < 1.0 /HPF (0.0-6.0) 12/22/20 18:53 Urine RBC (Auto) 1.0 /HPF (0.0-6.0) 12/22/20 18:53 Fluid Type Dialysate 12/22/20 Unknown Fluid Color Colorless 12/22/20 Unknown Fluid Appearance Cloudy 12/22/20 Unknown Fluid WBC 208 /mm3 12/22/20 Unknown Fluid RBC 45 /mm3 12/22/20 Unknown Fluid Seg Neutrophils 82.0 % 12/22/20 Unknown Fluid Lymphocytes 11.0 % 12/22/20 Unknown Fluid Reactive Lymphs 0 % 12/22/20 Unknown Fluid Monocytes 7.0 % 12/22/20 Unknown Fluid Eosinophils 0 % 12/22/20 Unknown Fluid Basophils 0 % 12/22/20 Unknown Random Vancomycin 13.7 ug/mL (0-40.0) 12/26/20 Unknown Digoxin 0.9 ng/mL (0.9-2.0) 02/04/21 05:40 Hepatitis A IgM Ab Non-reactive (NonReactive) 02/02/21 12:41 Hep Bs Antigen Non-reactive (Negative) 02/02/21 12:41 Hep B Core IgM Ab Non-reactive (NonReactive) 02/02/21 12:41 Hepatitis C Antibody Non-reactive (NonReactive) 02/02/21 12:41 Blood Type A POSITIVE 01/06/21 07:10 Antibody Screen Negative 01/06/21 07:10 Crossmatch See Detail 01/06/21 07:10 Jeffery/IV: Voiding Method Bedside Commode Active Medications - Current Medications Current Medications: Generic Name Dose Route Start Last Admin Trade Name Freq PRN Reason Stop Dose Admin Acetaminophen 650 mg 12/31/20 15:30 01/21/21 05:28 Acetaminophen 650 Mg Rect Supp [place] 650 mg Q6H PRN Administration Non Cardiac Pain or Temp>100.5 Clonidine HCl 0.2 mg 01/11/21 10:00 02/08/21 10:00 Clonidine Tts 0.2 Mg/24 Hr Patch TD Not Given We THOMAS Dextrose 50 ml 01/14/21 17:59 01/18/21 15:10 Dextrose 50% In Water (25gm) 50 Ml Syringe IV 20 ml Q30MIN PRN Administration Hypoglycemia Protocol Digoxin 0.125 mg 02/04/21 10:00 02/08/21 10:00 Digoxin 0.125 Mg Tab PO Not Given Q48HR THOMAS Diphenhydramine HCl 50 mg 01/20/21 10:10 02/01/21 14:15 Diphenhydramine 50 Mg/Ml Vial IV 50 mg Q6H PRN Administration Itching Diphenoxylate HCl/Atropine 1 tab 02/06/21 18:00 02/10/21 06:28 Diphenoxylate/Atropine Tab PO 1 tab Q6H THOMAS Administration Famotidine 10 mg 12/24/20 13:00 02/09/21 21:56 Famotidine 20 Mg/2 Ml Inj IV 10 mg BID THOMAS Administration Fluticasone Propionate 50 mcg 02/07/21 10:00 02/09/21 10:11 Fluticasone Propionate Nasal [place] 16 Gm NS 50 mcg QDAY HTOMAS Administration Haloperidol Lactate 5 mg 12/29/20 14:16 01/22/21 23:56 Haloperidol Lactate 5 Mg/1 Ml Inj IV 5 mg Q12H PRN Administration Agitation Heparin Sodium (Porcine) 5,000 unit 12/24/20 10:00 02/09/21 21:56 Heparin 5,000 Unit/1 Ml Vial SUB-Q 5,000 unit Q12HR THOMAS Administration Hydralazine HCl 10 mg 01/10/21 14:00 02/10/21 06:28 Hydralazine 20 Mg/1 Ml Inj IV 10 mg Q4HR THOMAS Administration Hydrocortisone Acetate 1 applic 02/01/21 18:43 Hydrocortisone 1% Cream 28.4gm TP Q8H PRN Skin Irritation Hydromorphone HCl 0.25 mg 01/09/21 10:53 02/09/21 05:04 Hydromorphone 1 Mg/1 Ml Inj IV 0.25 mg Q6H PRN Administration Pain , Severe (7-10) Sodium Chloride 100 mls @ 999 mls/hr 01/27/21 18:37 Nacl 0.9% IV RY[place] PRN Hypotension Amino Acids/Electrolytes/Dextrose 2,016 mls @ 84 mls/hr 02/09/21 20:00 02/09/21 21:42 Tpn Adult IV 02/10/21 19:59 84 mls/hr DAILY@2000 THOMAS Administration Protocol Insulin Glargine 5 units 01/18/21 22:00 02/09/21 22:20 Insulin Glargine 100 Units/Ml SUB-Q 5 units QHS THOMAS Administration Insulin Human Lispro 0 unit 01/03/21 12:00 02/10/21 06:29 Insulin Lispro 100 Unit/Ml SUB-Q Not Given Q6HR [facility] Protocol Metoprolol Tartrate 5 mg 12/30/20 12:00 02/10/21 06:27 Metoprolol Tartrate 5 Mg/5 Ml Inj IV 5 mg Q4HR THOMAS Administration Morphine Sulfate 2 mg 02/02/21 12:00 02/03/21 13:31 Morphine 2 Mg/1 Ml Inj IV 2 mg Q3H PRN Administration Pain, Moderate (4-6) Ondansetron HCl 4 mg 01/25/21 11:56 02/08/21 12:44 Ondansetron 4 Mg/2 Ml Inj IV 4 mg Q4H PRN Administration Nausea And Vomiting Scopolamine 1 each 01/15/21 11:00 02/08/21 10:00 Scopolamine Transdermal Patch 72 Hr TD Not Given Q3D THOMAS Sodium Chloride 10 ml 12/22/20 22:00 02/09/21 21:58 Sodium Chloride 0.9% 10 Ml Flush Syringe IV 10 ml BID THOMAS Administration Sodium Chloride 10 ml 12/22/20 19:42 01/29/21 02:08 Sodium Chloride 0.9% 10 Ml Flush Syringe IV 10 ml PRN PRN Administration LINE FLUSH Nutrition/Malnutrition Assess - Dietary Evaluation Nutrition/Malnutrition Findings: Nutrition Notes Start: 12/24/20 12:36 Freq: Status: Active Protocol: Document 02/10/21 09:14 CW (Rec: 02/10/21 09:33 CW [id number]) Nutrition Notes Initial or Follow up Reassessment Current Diagnosis CKD (stage V CKD),Sepsis, Hypertension,Heart Failure, Small Bowel Obstruction Other Pertinent Diagnosis onHD, s/p exp lap, s/p bowel resections, afib Current Diet CPN at 84 ml/hr+ Clear Liquids Labs/Tests Cl 95.4 BUN 65 Cr 10.2 Phos 2.2 Mg 2.8 Pertinent Medications Reviewed Height 5 ft 7 in Weight 84 kg [place] Body Weight (kg) 67.27 BMI 29.0 Weight Status Overweight Subjective/Other Information Day 47 TPN. Pt continues to have loose stool but it is improving. Percent of energy/protein needs met: 95%/100% Burn Absent Trauma Absent GI Symptoms Diarrhea Current % PO Negligible Minimum of two criteria No Reduced [employer] Strength Measurably Reduced (severe) #2 Nutrition Diagnosis Increased nutrient needs ( specify in comment below) Diagnosis Progress(for reassessment Continues documentation) #1 Nutrition Diagnosis Inadequate oral intake Diagnosis Progress(for reassessment Continues documentation) Is patient on ventilator? No Is Patient Ambulatory and/or Out of Bed No REE-([facility]-confined to bed) [phone] Calculation Used for Recommendations [facility] Additional Notes Pro needs 1.2-1.3g/k- 109g/day Fluid needs per MD. Nutrition Intervention Change Diet Order: Continue CPN Nutrition Support: Continue CPN at 84 ml/hr. MVI, Lipids, Mg 0 mEq, phos 10 mmols Kcal 2,174 Protein (gm) 121 Carbohydrates (gm) 350 Fat (gm) 50 Fluid (mL) 2,266 Fiber (gm) 0 Goal #1 Meet at least 75% of estimated energy and protein needs via CPN Anticipated Discharge Needs: continuous TPN at 84ml/hr Follow-Up By: 02/11/21 Additional Comments Labs in am: BMP, Mg, Phos
[2021-02-10] MEDS: FLUTICASONE PROPIONATE NASAL SPRAY 16 GM NS SCH (10:16)
[2021-02-10] MEDS: FAMOTIDINE 20 MG/2 ML INJ IV SCH ×2 (10:17→21:01)
[2021-02-10] MEDS: HEPARIN 5,000 UNIT/1 ML VIAL SUB-Q SCH ×2 (10:17→21:01)
[2021-02-10] MEDS: DIGOXIN 0.125 MG TAB PO SCH (10:19)
--- NOTE | 2021-02-10 15:09 | Progress Note ---
Assessment and Plan POD#47 s/p ex lap with extensive lysis of adhesions and two small bowel resections with primary anastamosis for SBO with necrotic segment small bowel. POD#38 s/p ex lap, resection of perforated anastamosis, washout and abthera wound vac placement. POD#36 s/p ex lap with right hemicolectomy. POD#34 s/p ex lap, with jejunal-colonic anastamosis and closure of abdomen. Afebrile and stable. - concerned about a leak at his anastamosis. Clinically improved with decreased output that is becoming more serous. 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 Continue HARIS drain suction. HARIS drain must be secured and kept in place. Since HARIS drain has continued to stay about 10ml over the last several days, will discontinue octreotide. Patient will need to be on TPN for the foreseeable future due to inability to use his GI tract to the point of getting adequate nutrition from oral diet at this time. continue g-tube to drainage for decompression. continue clear liquids and closely monitor HARIS drain output. I spoke to case management yesterday. They are sending patient's chart to LTAC facilities to review for possible transfer. Will talk to case management about the possibility of home health, PT and TPN. Subjective Date of service: 02/10/21 Narrative: No acute events overnight. Patient denies pain, nausea or vomiting. Patient continues to have loose stools with 3 episodes as of today. Patient inquiring if he can be discharged to home by February 26. Patient tolerating sips of clear liquids. Objective Vital Signs - 12hr 02/10/21 02/10/21 02/10/21 03:12 03:13 05:57 Temperature 98.4 F Pulse Rate 80 80 Respiratory 20 Rate Blood Pressure 142/76 142/76 Blood Pressure [Right] O2 Sat by Pulse Oximetry 02/10/21 02/10/21 02/10/21 06:00 06:27 06:28 Temperature Pulse Rate 81 Respiratory 20 Rate Blood Pressure 128/67 128/67 Blood Pressure 128/67 [Right] O2 Sat by Pulse 100 Oximetry 02/10/21 02/10/21 02/10/21 08:09 10:18 10:19 Temperature 98.0 F Pulse Rate 53 L 53 L 53 L Respiratory 16 Rate Blood Pressure 139/70 139/70 139/70 Blood Pressure [Right] O2 Sat by Pulse 100 Oximetry 02/10/21 14:15 Temperature 98.1 F Pulse Rate 89 Respiratory 16 Rate Blood Pressure Blood Pressure 138/71 [Right] O2 Sat by Pulse 95 Oximetry - General physical appearance well developed, no distress, no pain - Respiratory normal expansion, normal respiratory effort - Abdomen soft, not tender, other (G-tube with bilious drainage, HARIS drain with brown drainage, 5cc recorded last 24 hours. ) - Labs 02/07/21 04:35 02/10/21 06:00 Diabetes panel 02/10/21 Range/Units 06:00 Sodium 138 (137-145) mmol/L Potassium 3.6 (3.6-5.0) mmol/L Chloride 95.4 L (98-107) mmol/L Carbon Dioxide 26 (22-30) mmol/L BUN 65 H (9-20) mg/dL Creatinine 10.2 H (0.8-1.3) mg/dL Glucose 114 H (75-100) mg/dL Calcium 9.1 (8.4-10.2) mg/dL Calcium panel 02/10/21 Range/Units 06:00 Calcium 9.1 (8.4-10.2) mg/dL Phosphorus 2.20 L (2.5-4.5) mg/dL Pituitary panel 02/10/21 Range/Units 06:00 Sodium 138 (137-145) mmol/L Potassium 3.6 (3.6-5.0) mmol/L Chloride 95.4 L (98-107) mmol/L Carbon Dioxide 26 (22-30) mmol/L BUN 65 H (9-20) mg/dL Creatinine 10.2 H (0.8-1.3) mg/dL Glucose 114 H (75-100) mg/dL Calcium 9.1 (8.4-10.2) mg/dL Adrenal panel 02/10/21 Range/Units 06:00 Sodium 138 (137-145) mmol/L Potassium 3.6 (3.6-5.0) mmol/L Chloride 95.4 L (98-107) mmol/L Carbon Dioxide 26 (22-30) mmol/L BUN 65 H (9-20) mg/dL Creatinine 10.2 H (0.8-1.3) mg/dL Glucose 114 H (75-100) mg/dL Calcium 9.1 (8.4-10.2) mg/dL
--- NOTE | 2021-02-10 18:42 | Progress Note ---
Assessment and Plan Assessment: * ESRD previously on peritoneal dialysis; now on back up HD (on peritoneal dialysis for 2 years) * Small bowel obstruction --s/p ex-lap with jejuno-ileal anastamosis --s/p ex lap with extensive lysis of adhesions and two small bowel resections with primary anastamosis for SBO with necrotic segment small bowel. --s/p ex lap, resection of perforated anastamosis, washout and abthera wound vac placement. --s/p ex lap with right hemicolectomy. * Acute respiratory failure, s/p extubation * Septic shock - resolved * Bacteremia - resolved * Anemia of ESRD * Atrial fibrilation, new onset * Post op ileus Plan: * Continue HD MWF via left IJ permcath (12/27) * 3K bath with dialysis * Decreased UF while experiencing ongoing diarrhea * Epogen 10k units w/ dialysis * Rate control per cardiology * Nutrition per primary team * Maintatin MAP >65 * Surgery notes reviewed. Octreotide d/c by surgery today. * He will also require outpatient hemodialysis chair prior to discharge * Elevated BUN likely secondary to catabolic state. Continue increased dialysis time - 4 hours. Subjective Date of service: 02/10/21 Principal diagnosis: Ac hypoxemic resp failure; Severe Sepsis; Peritonitis; Acute SBO; ESRD; CHF Interval history: Ongoing diarrhea. On clear liquids. No complications with HD. Objective - Exam Narrative Exam: General appearance: NAD Eyes: anicteric sclerae HENT: Normocephalic, Atraumatic Neck: supple, tracheal midline, no JVD Lungs: CTAB CV: RRR Abdomen: Soft, distended, periumbilical tenderness Extremities: no edema, no cyanosis Skin: No rash. Psych: Calm Neuro: Following commands - Vital Signs Vital signs: Vital Signs - 12hr 02/10/21 02/10/21 02/10/21 08:09 10:18 10:19 Temperature 98.0 F Pulse Rate 53 L 53 L 53 L Respiratory 16 Rate Blood Pressure 139/70 139/70 139/70 Blood Pressure [Right] O2 Sat by Pulse 100 Oximetry 02/10/21 14:15 Temperature 98.1 F Pulse Rate 89 Respiratory 16 Rate Blood Pressure Blood Pressure 138/71 [Right] O2 Sat by Pulse 95 Oximetry - Lab 02/07/21 04:35 02/10/21 06:00 Most recent lab results ABG pH 7.345 pH Units (7.350-7.450) L 01/07/21 17:14 ABG pCO2 40.3 mm Hg 01/07/21 17:14 ABG pO2 67.4 mm Hg (80.0-90.0) L 01/07/21 17:14 ABG HCO3 21.5 mmol/L (20.0-26.0) 01/07/21 17:14 ABG O2 Saturation 94.3 % (95.0-99.0) L 01/07/21 17:14 Calcium 9.1 mg/dL (8.4-10.2) 02/10/21 06:00 Phosphorus 2.20 mg/dL (2.5-4.5) L 02/10/21 06:00 Magnesium 2.80 mg/dL (1.7-2.3) H 02/10/21 06:00 Medications & Allergies - Medications Allergies/Adverse Reactions: Allergies No Known Allergies Allergy (Verified 06/09/20 15:27) Home Medications: Home Medications Medication Instructions Recorded Confirmed Last Taken Type Albuterol Mdi (or & Nicu Only) 2 puff IH QID PRN #1 inhalation 04/01/17 02/05/21 10/31/20 09:00 Rx [ProAir HFA Inhaler] Calcium Acetate 667 mg PO DAILY 04/20/20 02/05/21 10/31/20 09:00 History Centrum Men's Tablet 1 tab PO DAILY 04/20/20 02/05/21 10/31/20 09:00 History Cinacalcet 30 mg PO DAILY 04/20/20 02/05/21 10/31/20 09:00 History Dialyvite with Zinc Tablet 1 tab PO DAILY 04/20/20 02/05/21 10/31/20 09:00 History Magnesium 250 mg PO BID 04/20/20 02/05/21 10/31/20 17:00 History Triamcinolone 0.1% 1 1000units TRANSDERMA DAILY 04/20/20 02/05/21 10/31/20 09:00 History Vit B12/Folic Acid/B6/Aa No.15 1,000 mg PO DAILY 04/20/20 02/05/21 10/31/20 09:00 History amLODIPine 10 mg PO DAILY 06/09/20 02/05/2110/31/21 09:00 History AtorvaSTATin 40 mg PO HS 11/01/20 02/05/21 10/31/20 21:00 History Benadryl 25 mg PO HS 11/01/20 02/05/21 10/31/20 21:00 History Diclofenac 1 applic TRANSDERMA QID 11/01/20 02/05/21 10/31/20 19:00 History Fluticasone Propionate 1 spray INTRANASAL DAILY 11/01/20 02/05/21 10/31/20 09:00 History Vitamin D3 2,000 units PO QDAY 11/01/20 02/05/21 10/31/20 09:00 History carvediloL 12.5 mg PO DAILY 11/01/20 02/05/21 10/31/20 09:00 History hydrALAZINE 100 mg PO TID 11/01/20 02/05/21 10/31/20 19:00 History Active Medications: Generic Name Dose Route Start Last Admin Trade Name Freq PRN Reason Stop Dose Admin Acetaminophen 650 mg 12/31/20 15:30 01/21/21 05:28 Acetaminophen 650 Mg Rect Supp [place] 650 mg Q6H PRN Administration Non Cardiac Pain or Temp>100.5 Clonidine HCl 0.2 mg 01/11/21 10:00 02/08/21 10:00 Clonidine Tts 0.2 Mg/24 Hr Patch TD Not Given We THOMAS Dextrose 50 ml 01/14/21 17:59 01/18/21 15:10 Dextrose 50% In Water (25gm) 50 Ml Syringe IV 20 ml Q30MIN PRN Administration Hypoglycemia Protocol Digoxin 0.125 mg 02/04/21 10:00 02/10/21 10:19 Digoxin 0.125 Mg Tab PO 0.125 mg Q48HR THOMAS Administration Diphenhydramine HCl 50 mg 01/20/21 10:10 02/01/21 14:15 Diphenhydramine 50 Mg/Ml Vial IV 50 mg Q6H PRN Administration Itching Diphenoxylate HCl/Atropine 1 tab 02/06/21 18:00 02/10/21 17:29 Diphenoxylate/Atropine Tab PO Not Given Q6H THOMAS Famotidine 10 mg 12/24/20 13:00 02/10/21 10:17 Famotidine 20 Mg/2 Ml Inj IV 10 mg BID THOMAS Administration Fluticasone Propionate 50 mcg 02/07/21 10:00 02/10/21 10:16 Fluticasone Propionate Nasal [place] 16 Gm NS 50 mcg QDAY [facility] Administration Haloperidol Lactate 5 mg 12/29/20 14:16 01/22/21 23:56 Haloperidol Lactate 5 Mg/1 Ml Inj IV 5 mg Q12H PRN Administration Agitation Heparin Sodium (Porcine) 5,000 unit 12/24/20 10:00 02/10/21 10:17 Heparin 5,000 Unit/1 Ml Vial SUB-Q 5,000 unit Q12HR THOMAS Administration Hydralazine HCl 10 mg 01/10/21 14:00 02/10/21 17:28 Hydralazine 20 Mg/1 Ml Inj IV Not Given Q4HR [facility] Hydrocortisone Acetate 1 applic 02/01/21 18:43 Hydrocortisone 1% Cream 28.4gm TP Q8H PRN Skin Irritation Hydromorphone HCl 0.25 mg 01/09/21 10:53 02/09/21 05:04 Hydromorphone 1 Mg/1 Ml Inj IV 0.25 mg Q6H PRN Administration Pain , Severe (7-10) Sodium Chloride 100 mls @ 999 mls/hr 01/27/21 18:37 Nacl 0.9% IV [place] PRN Hypotension Amino Acids/Electrolytes/Dextrose 2,016 mls @ 84 mls/hr 02/09/21 20:00 02/09/21 21:42 Tpn Adult IV 02/10/21 19:59 84 mls/hr [email or web address] [facility] Administration Protocol Amino Acids/Electrolytes/Dextrose 2,016 mls @ 84 mls/hr 02/10/21 20:00 Tpn Adult IV 02/11/21 19:59 [email or web address] [facility] Protocol Fat Emulsion Intravenous 250 mls @ 21 mls/hr 02/10/21 20:00 Intralipid 20% IV 02/11/21 08:00 [email or web address] [facility] Insulin Glargine 5 units 01/18/21 22:00 02/09/21 22:20 Insulin Glargine 100 Units/Ml SUB-Q 5 units QHS [facility] Administration Insulin Human Lispro 0 unit 01/03/21 12:00 02/10/21 17:29 Insulin Lispro 100 Unit/Ml SUB-Q Not Given Q6HR [facility] Protocol Metoprolol Tartrate 5 mg 12/30/20 12:00 02/10/21 17:29 Metoprolol Tartrate 5 Mg/5 Ml Inj IV Not Given Q4HR THOMAS Morphine Sulfate 2 mg 02/02/21 12:00 02/03/21 13:31 Morphine 2 Mg/1 Ml Inj IV 2 mg Q3H PRN Administration Pain, Moderate (4-6) Ondansetron HCl 4 mg 01/25/21 11:56 02/08/21 12:44 Ondansetron 4 Mg/2 Ml Inj IV 4 mg Q4H PRN Administration Nausea And Vomiting Scopolamine 1 each 01/15/21 11:00 02/08/21 10:00 Scopolamine Transdermal Patch 72 Hr TD Not Given Q3D THOMAS Sodium Chloride 10 ml 12/22/20 22:00 02/10/21 10:17 Sodium Chloride 0.9% 10 Ml Flush Syringe IV 10 ml BID THOMAS Administration Sodium Chloride 10 ml 12/22/20 19:42 01/29/21 02:08 Sodium Chloride 0.9% 10 Ml Flush Syringe IV 10 ml PRN PRN Administration LINE FLUSH
[2021-02-10] MEDS ORDERED: FAT EMULSIONS 20% 250 ML IV SCH (20:00)
[2021-02-10] MEDS ORDERED: TOTAL PARENTERAL NUTRITION 2,016 ML IV SCH (20:00)
[2021-02-11] MEDS: INSULIN GLARGINE 100 UNITS/ML SUB-Q SCH ×2 (01:19→22:44)
[2021-02-11] MEDS: INSULIN LISPRO 100 UNIT/ML SUB-Q SCH ×4 (01:19→18:27)
[2021-02-11] MEDS ORDERED: POTASSIUM CHLORIDE ER 20 MEQ TAB PO ONE (01:40)
[2021-02-11 05:17] LABS: Calcium 8.6 mg/dL (8.4-10.2)
[2021-02-11] MEDS: hydrALAZINE 20 MG/1 ML INJ IV SCH ×6 (06:28→22:42)
[2021-02-11] MEDS: METOPROLOL TARTRATE 5 MG/5 ML INJ IV SCH ×6 (06:30→22:43)
[2021-02-11] MEDS: DIPHENOXYLATE/ATROPINE TAB PO SCH ×4 (07:00→18:26)
[2021-02-11] MEDS ORDERED: POTASSIUM CHLORIDE ER 20 MEQ TAB PO SCH (08:00)
--- NOTE | 2021-02-11 08:27 | Progress Note ---
Assessment and Plan Assessment and plan: Severe Sepsis with shock Streptococcus bovis bacteremia/Prevotella bacteremia Gwendolyn albicans tracheal aspirate Small bowel obstruction/necrotic bowel s/p ex lap with extensive lysis of adhesions, 2 small bowel resections with primary anastomosis, right hemicolectomy, jejunal colonic anastomosis, segmental small bowel resection Postoperative ileus Atrial fibrillation with RVR Leukocytosis Hypochloremia Gwendolyn albicans in tracheal aspirate from 12/24 ESRD on PD, PermCath to be placed Transaminitis Systolic CHF(EF 35%) Crohn's disease Hypertension Hypokalemia and hypophosphatemia -[facility], surgery, infectious disease, nephrology, vascular surgery, cardiology consulted, appreciate recommendations -12/24 S/p ex lap with extensive expectations, 2 small bowel resections with primary anastomosis with surgery on 12/23 -s/p PICC and Permacath placement with vascular surgery on 12/27 -Extubated on 12/28, reintubated 12/31 for respiratory distress and extubated 01/08 -12/29 echocardiogram shows moderate concentric LVH, small pericardial effusion, transmitral Doppler flow pattern is grade 1 abnormal relaxation pattern, left- ventricular systolic function normal, LVEF 50 to 55%, no wall motion abnormalities. -01/01 CT abdomen/pelvis shows small pericardial effusion, mild coronary artery atherosclerotic calcification, small bilateral pleural effusions with associated volume loss, no convincing evidence of bowel obstruction or inflammation, postoperative changes from interval/recent midline laparotomy with a moderate amount of free fluid throughout the abdomen, small amount of dependent free air presumably postoperative -01/02 s/p ex lap, resection of perforated anastamosis, washout and abthera wound vac placement. -01/04 s/p ex lap with right hemicolectomy. -01/06 s/p exploratory laparotomy, Jejunal colonic anastomosis, Segmental small bowel resection. -s/p Vasopressor support with Levophed and vasopressin -Transitioned to HD from PD -HD per nephro, Epogen with HD -Strict NPO -cont TPN, Octreotide drip -s/p NGT to LIWS, now placed on G-tube for decompression - s/p rectal tube -s/p IV antibiotics -Tobacco abuse cessation counseling -Trend CBC, BMP DVT/GI prophylaxis: PPI, heparin subcu, SCDs to bilateral lower extremities while in bed Brief Course: This is a 60 YO Male with ESRD on PD, GERD, Crohn's Disease, Nicotine Dependence, HTN, Systolic CHF(EF 35%) who presented to the emergency department on 12/22 with complaints of abdominal pain which began shortly after eating fast food rated 10/10 which is periumbilical, constant, associated with fever, nausea and multiple sites of vomiting and self-reported inability to undergo PD. In the emergency room patient underwent a CT scan of the abdomen/pelvis which revealed evidence of partial small bowel obstruction, symptoms were consistent with bacterial peritonitis. Patient was admitted to the hospital service with sepsis, peritonitis, and small bowel obstruction with consults to general surgery, nephrology, infectious disease and [facility]. Daily clinical course: 12/23. Patient had temperature 101.2 F, tachycardia and elevated lactic acid on admission. Meet sepsis criteria. Started on IV antibiotics. ID has been consulted. Surgery consulted this a.m.-advised laparoscopy. He remains on NG tube connected to suction. 12/24. Patient was noted to have peritonitis yesterday and patient undergoing exploratory laparotomy. Patient remained intubated after procedure and is in ICU. Now on broad-spectrum antibiotics. ID on board. 12/25. Remains mechanically ventilated and sedated. Temp 103 Fahrenheit. Antibiotics broadened-ID added fluconazole and Flagyl. Blood cultures ordered. Plan to repeat CT abdomen tomorrow if not better. Surgery following. 12/26: Patient remains on mechanical ventilation on CMV tidal line 550, rate of 14, PEEP of 8 and 30% FiO2 and sedated on fentanyl 4 micrograms. Today we will remove his Jeffery and [facility] dropped his rate controlled him on CPAP. We will trend CBC given recent drop in H/H. 12/27: Patient remains intubated on CMV tidal volume 550, rate 12, PEEP 8 on 30% FiO2 at the time my examination. Patient's TPN will be changed to PPN. Adebayo dueñas's fentanyl drip will be changed to IV push fentanyl and have a permacath placed today and midline. Patient was placed on a spontaneous breathing trial was switched back to CMV prior to procedure. 12/28: Patient on fentanyl but awake and follows commands. At the time of my examination he was on a CPAP trial and is scheduled to receive HD today. s/o permacath and PICC placement with vascular yesterday. His blood culture grew Prevotella and addition to Streptococcus bovis. This evening Dr. Spicer attempted to extubate the patient and his heart rate went to the 180s. Stat EKG obtained and cardiology consulted. 12/29: Patient was started on amiodarone IV for A. fib RVR yesterday and today he is more rate controlled into the 70s and 80s. Patient was extubated yesterday and is currently on Ventimask. Patient will be transferred to [facility]. Patient continues to be n.p.o. with TPN and NG tube to LIS. He is hypokalemic today which was repleted. 12/30; patient was on IV amiodarone for treatment with RVR, rate is controlled. Patient was off oxygen. patient is n.p.o. and on TPN. Surgery is following the patient. 12/31: Patient was intubated overnight for respiratory distress and this morning on examination he was on assist control tidal volume 450, rate 20, PEEP 6, 100% FiO2 and RT was getting a ABG to adjust vent settings. Patient had a acute bump in WBC and per ID recommendations we will obtain a CT abdomen/pelvis if leukocytosis persist. Patient is on TPN and sedated with Levophed. Patient is also on vasopressor support with Levophed. Per surgery his ileus is resolving however will maintain OGT to LIWS. 01/01: Patient was started on a vasopressin yesterday late evening. This morning patient is on 20 mcg of Levophed and 0.03 vasopressin and sedated on 20 mcg of propofol. Patient WBC increased today and he is hypokalemic. We will treat hyperkalemia. Patient had a CT chest and abdomen/pelvis pending. The time examination total of 450, rate 20, PEEP of 6 and 35 percent FiO2. Per RN, Dr Pollock has stated that the patient will be returning to the OR today for likely anastomosis seen on CT abdomen/pelvis. 01/02: Patient noted, WBC improving, but noted to have anemia, will transfuse additional unit of Blood and repeat H/H. continue supportive care. 01/03: Continue to wean pressors, ABX PER ID, patient to return to OR today for washout and possible closure, CONTINUE TPN 01/04: Continues to show some improvement. Today is POD#12 s/p ex lap with extensive lysis of adhesions and two small bowel resections with primary anastamosis for SBO with necrotic segment small bowel. POD#3 s/p ex lap, resection of perforated anastamosis, washout and abthera wound vac placement. POD#1 s/p ex lap with right hemicolectomy. Surgery planning to take back to the OR on Saturday with the hope to anastamos ileum to transverse colon and close abdomen. keep NGT to suction. Pt in deep sedation due to open abdomen. Per ID - Continue IV Zosyn, renally dosed for Strep bacteremia treatment till 01/06/2021 -On TPN 01/05: Patient continues on HD, anticipate return to OR tomorrow for closure and anastemosis. Continues with deep sedation due to open abdomen 01/06: Continue supportive care, monitor pressures and electrolytes. He is post op Exploratory laparotomy, 2. Jejunal colonic anastomosis,3. Segmental small bowel resection and anastemosis closure today. Continue wound vac 01/07: Continue supportive care, Today is POD#15 s/p ex lap with extensive lysis of adhesions and two small bowel resections with primary anastamosis for SBO wit h necrotic segment small bowel. POD#6 s/p ex lap, resection of perforated anastamosis, washout and abthera wound vac placement. POD#4 s/p ex lap with right hemicolectomy. POD #1 exploratory laparotomy, 2. Jejunal colonic anastomosis,3. Segmental small bowel resection. Continue to monitor and sruthi ect electrolytes. Patient remains on fentanyl and TPN with lipids. Still hypoactive bowel sounds. 16: Patient now extubated, asked when he can go home, Still lethargic. Continue wound management, wound vac, Will need Rehab eval prior to discharge. 01/09: Patient remains on TPN, was started on labetalol drip per cardiology, patient had uncontrolled hypertension today however he cannot be given p.o. medications ileus resolves per surgery. Patient received hemodialysis today. NG tube remains to low intermittent suction. 01/10: Patient has some leukocytosis, slight hypokalemia and hyponatremia, metabolic acidosis. NG tube to LIWS, continue TPN. Patient will be downgraded to IMCU today. [facility] is working on placement. Will change frequency of hydralazine and discontinue labetalol drip. We will obtain a.m. BMP/mag/Phos and CBC. Infectious disease will like to start Zosyn if leukocytosis continues to worsen. 01/11: Patient leukocytosis has slightly improved potassium with in normal limits and other electrolytes are elevated but patient is scheduled for HD today. Remains on RA and A,A,Ox4. BP better controlled but remains elevated and we will increase clonidine dose. 01/12/2021; patient's blood pressure is better after dialysis and as needed IV medications and clonidine patch. Patient is followed by general surgery. Patient was alert and oriented and asked when he is going home. 01/13: Surgery is concerned about a leak at his anastamosis given increased output and will treat as controlled fistula and start an octreotide drip. And per surgery if he requires operative intervention will likely need to be left in discontinuity and eventual ileostomy as he has already failed two anastamoses. Patient still has tongue swelling and slurred speech. He is on Benadryl. 01/14: Patient's tongue swelling is improved, patient is alert and oriented, CAM ICU negative. Continue NG tube to low wall intermittent suction. Leukocytosis is improving. Hypomagnesemia resolved. Epogen with HD 01/15: Patient tongue swelling is much improved, bladder scan completed by bedside RN and he needed to be straight cathed. NGT output decreased. Leukocytosis improving. Patient has been having episodes of hypoglycemia during the day and he is on cyclic TPN, Lantus rescheduled to nightly and dosage decreased. 01/16: Continue management per ID and surgery. Will defer repeat CT of the abdomen to the team surgery has been approved by nephrology. Continue current diet and advance all to ice if okay with surgery discussed with nursing staff. 01/17: Discussed surgical recommendation of strict n.p.o. except for small amount of ice as patient has already failed to anastomosis. And risk for additional surgery with tissues were extremely friable from previous scar. He continues on octreotide drip to slow down GI output HARIS drain remains in place with NG suction for decompression. Patient verbalized understanding although stressed about being discharged. We will continue IMCU care unless otherwise advised by surgery. Prognosis remains guarded continue to monitor electrolytes considering GI output. 01/18: Continue supportive care, BP mildly elevated, continue to monitor, con tinue current therapy, if no return to PO soon may consider Increasing clonidine to 0.3, PO when ok with surgery. 01/19:Continue supportive care, Per ID continue IV Zosyn, plan to stop at 3 weeks from last surgery end date: 01/24/2021. Other management per surgery. Continue TPN. 01/20: Discussed with Surgery, will continue current management. Advised patient of the findings and plan. 01/21: Continue supportive care. Continue management per surgery advance diet when okay with surgery. Plan of care discussed with the patient in detail. 01/22: NG tube to be replaced explained to the patient why this is important. I agree with PT OT discussed with nursing staff very important to let the PT team know that they should manage HARIS drain while patient is ambulating so that he does not come out. Continue current management. Change in ocreotide to q8h and d/c drip NOTED 01/23: Continue supportive care, HD today, counselling provided to the patient on compliance with medical management 01/24: Replace NGT, Continue management per Surgery. POD 32. Mild hypokalemia noted, will replace. 01/25: Brief summary patient is a 60-year-old male admitted with abdominal pain and noted to have necrotic bowel concerning for PD associated peritonitis. Catheter was placed to convert to HD. Patient also underwent multiple surgical interventions. Initial cultures showed Streptococcus bovis bacteremia and Prevotella bacteremia a COLIN was without vegetations repeat blood cultures have b een negative. Part of the surgery is included ex lap, resection of perforated anastomosis, washout and a better wound VAC placement on 01/01. While progress has remained slow if has indeed shown some improvement. Patient is agitated about being in the hospital but understands the care management been provided his vital to his health and to prevent further surgeries. The NG tube has been pulled out 2 days ago he vehemently refused the tube being placed back but after a day of nausea with associated vomiting he was accepting of the chest tube to put back. He continues on TPN. We will continue to monitor electrolytes and correct as needed. This a.m. and erroneous blood was obtained likely from the same line as TPN repeat was done which showed normalizing factors. Patient completed antibiotics on 01/25/2020 . 01/26 Patient with severe sepsis with septic shock, small bowel obstruction, necrotic bowel s/p multiple surgeries. He complains of abdominal pain. No fever currently. He asked me when is he going home and i explained that he is not yet stable for discharge 01/27 Patient with severe sepsis with septic shock, small bowel obstruction, necrotic bowel s/p multiple surgeries. He complains of abdominal pain. No fever currently. Paroxysmal atrial fib managed by cardiology 01/28 Patient with severe sepsis with septic shock, small bowel obstruction, necrotic bowel s/p multiple surgeries. No fever currently. No abd pain currently. I discussed with Surgeon, Dr. Pollock. Continue current management. He also has paroxysmal afib, managed by Cardiology. 01/29 Patient with severe sepsis with septic shock, small bowel obstruction, necrotic bowel s/p multiple surgeries. No fever currently. No abd pain currently. I discussed with Surgeon, Dr. Pollock, yesterday. Continue current management. He also has paroxysmal afib, managed by Cardiology. He is on Metoprolol, Digoxin, Clonidine 01/30 Patient with severe sepsis with septic shock, small bowel obstruction, n ecrotic bowel s/p multiple surgeries. Patient is a 60-year-old male admitted with abdominal pain and noted to have necrotic bowel concerning for PD associated peritonitis. Catheter was placed to convert to HD. Patient also underwent multiple surgical interventions. Initial cultures showed Strep tococcus bovis bacteremia and Prevotella bacteremia a COLIN was without vegetations repeat blood cultures have been negative. Part of the surgery is included ex lap, resection of perforated anastomosis, washout and a better wound VAC placement on 01/01. While progress has remained slow if has indeed shown some improvement. Patient is agitated about being in the hospital but understands the care management been provided his vital to his health and to prevent further surgeries. He continues on TPN. No fever currently. Less abdominal pain. Discussed with Surgeon, Dr. Pollock, few days ago. Continue current management. He also has paroxysmal afib, managed by Cardiology. He is on Metoprolol, D igoxin, Clonidine. ESRD on dialysis managed by Nephrology. 01/31: Continue HARIS drain suction. Ongoing treatment for anastomotic leak/controlled low output fistula. Maintain LIWS to NGT and monitor output. continue q 8h ocreotide. cont TPN. Defer to general surgery for NG tube discontinuation. 02/01: planned for g-tube placement for gastric decompression. Removed NG tube today. S/p HD -tolerated well : Status post G-tube placement today, resume TPN, patient is off from rectal tube. Continue supportive care and follow general surgery recommendation for discharge planning. Hemodialysis per schedule 02/03 -02/05: cont TPN, G-tube suction, Continue supportive care and follow general surgery recommendation for discharge planning. Hemodialysis per schedule. 02/06: Per surgery Anastamotic leak slowing down and is a controlled fistula. Continue HARIS drain suction. Since HARIS drain has continued to stay about 10ml over the last several days, plan to continue lower dose of octreotide. continue g-tube to drainage for decompression. continue clear liquids and closely monitor HARIS drain output. patient need LTAC placement. Continue to replace electrolytes and monitor phosphate level 02/07/2021; Per surgery Anastamotic leak slowing down and is a controlled fistula. Continue HARIS drain suction. Since HARIS drain has continued to stay about 10ml over the last several days, plan to continue lower dose of octreotide. continue g-tube to drainage for decompression. continue clear liquids and closely monitor HARIS drain output. patient need LTAC placement. Continue to replace electrolytes and monitor phosphate level. 02/08/2021; patient need to be transferred to LTAC. Patient expressed he wants to go home. 02/09/2021; pending LTAC placement 02/10/2021; pending LTAC placement 02/11/2021; patient continues to find a place to take him. General surgery is considering to discharge him home with home health, home TPN. History Interval history: Patient was seen and evaluated this morning Patient on TPN, tolerated clear liquid diet HARIS tube in place Hospitalist Physical - Physical exam Narrative exam: Patient was not in cardiopulmonary distress The patient appeared well nourished and normally developed. Vital signs as documented. Head exam is unremarkable. No scleral icterus . Neck is without jugular venous distension, thyromegaly, or carotid bruits. Lungs are clear to auscultation. Cardiac exam reveals regular rate and Rhythm. Abdominal exam reveals clean midline surgical laparatomy wound. HARIS tube in place Extremities are nonedematous and both femoral and pedal pulses are normal. [employer]: Alert and oriented 3. No focal weakness. - Constitutional Vitals: Temp Pulse Resp BP Pulse Ox 98.5 F 82 18 129/59 97 02/11/21 07:14 02/11/21 07:14 02/11/21 07:14 02/11/21 07:14 02/11/21 07:14 General appearance: Present: no acute distress HEART Score - HEART Score Troponin: Troponin T 0.021 ng/mL (0.00-0.029) 04/29/21 14:38 Results - Labs CBC & Chem 7: 02/07/21 04:35 02/11/21 04:20 Labs: Laboratory Last Values WBC 9.6 K/mm3 (4.5-11.0) 02/07/21 04:35 RBC 2.52 M/mm3 (3.65-5.03) L 02/07/21 04:35 Hgb 8.0 gm/dl (11.8-15.2) L 02/07/21 04:35 Hct 22.5 % (35.5-45.6) L 02/07/21 04:35 MCV 89 fl (84-94) 02/07/21 04:35 MCH 32 pg (28-32) 02/07/21 04:35 MCHC 36 % (32-34) H 02/07/21 04:35 RDW 16.7 % (13.2-15.2) H 02/07/21 04:35 Plt Count 230 K/mm3 (140-440) 02/07/21 04:35 Lymph % (Auto) 12.7 % (13.4-35.0) L 02/07/21 04:35 [place] % (Auto) 10.2 % (0.0-7.3) H 02/07/21 04:35 Eos % (Auto) 5.0 % (0.0-4.3) H 02/07/21 04:35 Baso % (Auto) 0.5 % (0.0-1.8) 02/07/21 04:35 Lymph # (Auto) 1.2 K/mm3 (1.2-5.4) 02/07/21 04:35 [place] # (Auto) 1.0 K/mm3 (0.0-0.8) H 02/07/21 04:35 Eos # (Auto) 0.5 K/mm3 (0.0-0.4) H 02/07/21 04:35 Baso # (Auto) 0.0 K/mm3 (0.0-0.1) 02/07/21 04:35 Add Manual Diff Complete 01/10/21 09:26 Total Counted 100 01/10/21 09:26 Seg Neutrophils % 71.6 % (40.0-70.0) H 02/07/21 04:35 Seg Neuts % (Manual) 95.0 % (40.0-70.0) H 01/10/21 09:26 Band Neutrophils % 1.0 % 01/10/21 09:26 Lymphocytes % (Manual) 3.0 % (13.4-35.0) L 01/10/21 09:26 Reactive Lymphs % (Man) 1.0 % 12/29/20 05:16 Monocytes % (Manual) 1.0 % (0.0-7.3) 01/10/21 09:26 Eosinophils % (Manual) 2.0 % (0.0-4.3) 12/29/20 05:16 Metamyelocytes % 2.0 % 12/29/20 05:16 Nucleated RBC % Not Reportable 01/10/21 09:26 Seg Neutrophils # 6.9 K/mm3 (1.8-7.7) 02/07/21 04:35 Seg Neutrophils # Man 17.3 K/mm3 (1.8-7.7) H 01/10/21 09:26 Band Neutrophils # 0.2 K/mm3 01/10/21 09:26 Lymphocytes # (Manual) 0.5 K/mm3 (1.2-5.4) L 01/10/21 09:26 Abs React Lymphs (Man) 0.0 K/mm3 01/10/21 09:26 Monocytes # (Manual) 0.2 K/mm3 (0.0-0.8) 01/10/21 09:26 Eosinophils # (Manual) 0.0 K/mm3 (0.0-0.4) 01/10/21 09:26 Basophils # (Manual) 0.0 K/mm3 (0.0-0.1) 01/10/21 09:26 Metamyelocytes # 0.0 K/mm3 01/10/21 09:26 Myelocytes # 0.0 K/mm3 01/10/21 09:26 Promyelocytes # 0.0 K/mm3 01/10/21 09:26 Blast Cells # 0.0 K/mm3 01/10/21 09:26 WBC Morphology Not Reportable 01/10/21 09:26 Hypersegmented Neuts Not Reportable 01/10/21 09:26 Hyposegmented Neuts Not Reportable 01/10/21 09:26 Hypogranular Neuts Not Reportable 01/10/21 09:26 Smudge Cells Not Reportable 01/10/21 09:26 Toxic Granulation 1+ 01/10/21 09:26 Toxic Vacuolation Not Reportable 01/10/21 09:26 Dohle Bodies Not Reportable 01/10/21 09:26 Pelger-Huet Anomaly Not Reportable 01/10/21 09:26 Lamar Rods Not Reportable 01/10/21 09:26 Platelet Estimate Consistent w auto 01/10/21 09:26 Clumped Platelets Not Reportable 01/10/21 09:26 Plt Clumps, EDTA Not Reportable 01/10/21 09:26 Large Platelets Not Reportable 01/10/21 09:26 Giant Platelets Not Reportable 01/10/21 09:26 Platelet Satelliting Not Reportable 01/10/21 09:26 Plt Morphology Comment Not Reportable 01/10/21 09:26 RBC Morphology Not Reportable 01/10/21 09:26 Dimorphic RBCs Not Reportable 01/10/21 09:26 Polychromasia Not Reportable 01/10/21 09:26 Hypochromasia Not Reportable 01/10/21 09:26 Poikilocytosis Not Reportable 01/10/21 09:26 Anisocytosis 1+ 01/10/21 09:26 Microcytosis Not Reportable 01/10/21 09:26 Macrocytosis Not Reportable 01/10/21 09:26 Spherocytes Not Reportable 01/10/21 09:26 Pappenheimer Bodies Not Reportable 01/10/21 09:26 Sickle Cells Not Reportable 01/10/21 09:26 Target Cells Not Reportable 01/10/21 09:26 Tear Drop Cells Not Reportable 01/10/21 09:26 Ovalocytes Not Reportable 01/10/21 09:26 Helmet Cells Not Reportable 01/10/21 09:26 [place]-Leupp Bodies Not Reportable 01/10/21 09:26 Logan Rings Not Reportable 01/10/21 09:26 [place] Cells Not Reportable 01/10/21 09:26 Bite Cells Not Reportable 01/10/21 09:26 Crenated Cell Not Reportable 01/10/21 09:26 Elliptocytes Not Reportable 01/10/21 09:26 Acanthocytes (Spur) Not Reportable 01/10/21 09:26 Rouleaux Not Reportable 01/10/21 09:26 Hemoglobin C Crystals Not Reportable 01/10/21 09:26 Schistocytes Not Reportable 01/10/21 09:26 Malaria parasites Not Reportable 01/10/21 09:26 Lucas Bodies Not Reportable 01/10/21 09:26 Hem Pathologist Commnt No 01/10/21 09:26 PT 16.9 Sec. (12.2-14.9) H 01/01/21 12:45 INR 1.39 (0.87-1.13) H 01/01/21 12:45 APTT 25.1 Sec. (24.2-36.6) 12/22/20 14:38 ABG pH 7.345 pH Units (7.350-7.450) L 01/07/21 17:14 POC ABG pCO2 41.4 mmHg (32.0-48.0) 01/07/21 03:07 ABG pCO2 40.3 mm Hg 01/07/21 17:14 POC ABG pO2 94.5 mmHg (83-108) 01/07/21 03:07 ABG pO2 67.4 mm Hg (80.0-90.0) L 01/07/21 17:14 POC ABG HCO3 22.7 01/07/21 03:07 ABG HCO3 21.5 mmol/L (20.0-26.0) 01/07/21 17:14 ABG O2 Saturation 94.3 % (95.0-99.0) L 01/07/21 17:14 ABG O2 Content 11.6 (0.0-44) 01/07/21 17:14 POC ABG Base Excess -2.7 01/07/21 03:07 ABG Base Excess -3.9 mmol/L (-2.0-3.0) L 01/07/21 17:14 ABG Hemoglobin 8.9 gm/dl (14.0-18.0) L 01/07/21 17:14 ABG Oxyhemoglobin 96.6 (94-98) 01/07/21 03:07 ABG Carboxyhemoglobin 1.5 % (0.0-5.0) 01/07/21 17:14 ABG Methemoglobin 0.6 % (0.0-1.5) 01/07/21 17:14 ABG Sodium 135.6 mmol/L (136.0-145.0) L 01/07/21 03:07 ABG Potassium 4.0 mmol/L (3.40-4.50) 01/07/21 03:07 ABG Chloride 102.0 mmol/L (98-107) 01/07/21 03:07 ABG Glucose 181 mg/dL (65-95) H 01/07/21 03:07 Oxyhemoglobin 92.3 % (95.0-99.0) L 01/07/21 17:14 Carboxyhemoglobin 0.7 (0.5-1.5) 01/07/21 03:07 FiO2 21 % 01/07/21 17:14 FiO2 % 45.0 01/07/21 03:07 Sodium 136 mmol/L (137-145) L 02/11/21 04:20 Potassium 3.3 mmol/L (3.6-5.0) L 02/11/21 04:20 Chloride 97.4 mmol/L (98-107) L 02/11/21 04:20 Carbon Dioxide 26 mmol/L (22-30) 02/11/21 04:20 Anion Gap 16 mmol/L 02/11/21 04:20 BUN 34 mg/dL (9-20) H 02/11/21 04:20 Creatinine 6.9 mg/dL (0.8-1.3) H 02/11/21 04:20 Estimated GFR 10 ml/min 02/11/21 04:20 BUN/Creatinine Ratio 5 % 02/11/21 04:20 Glucose 116 mg/dL (75-100) H 02/11/21 04:20 POC Glucose 120 mg/dL (70-105) H 02/11/21 06:23 Lactic Acid 1.10 mmol/L (0.7-2.0) 01/14/21 05:39 Calcium 8.6 mg/dL (8.4-10.2) 02/11/21 04:20 Phosphorus 2.00 mg/dL (2.5-4.5) L 02/11/21 04:20 Magnesium 1.90 mg/dL (1.7-2.3) 02/11/21 04:20 Total Bilirubin 0.50 mg/dL (0.1-1.2) 02/05/21 06:30 AST 19 units/L (5-40) 02/05/21 06:30 ALT 22 units/L (7-56) 02/05/21 06:30 Alkaline Phosphatase 177 units/L (35-129) H 02/05/21 06:30 Ammonia 30.0 umol/L (25-60) 12/22/20 14:38 Troponin T 0.021 ng/mL (0.00-0.029) 12/22/20 14:38 Total Protein 6.0 g/dL (6.3-8.2) L 02/05/21 06:30 Albumin 2.9 g/dL (3.9-5) L 02/05/21 06:30 Albumin/Globulin Ratio 0.9 % 02/05/21 06:30 Triglycerides 72 mg/dL (2-149) 01/30/21 04:15 Lipase 41 units/L (13-60) 12/22/20 14:38 Procalcitonin > 200.00 ng/mL (<0.15) 12/24/20 15:06 TSH 1.470 mlU/mL (0.270-4.200) 12/28/20 19:44 Arterial Blood Glucose 181 mg/dL (65-95) H 01/07/21 03:07 Arterial Blood Ionized Calcium 4.3 mg/dL (4.6-5.3) L 01/07/21 03:07 Urine Color Yellow (Yellow) 12/22/20 18:53 Urine Turbidity Clear (Clear) 12/22/20 18:53 Urine pH 7.0 (5.0-7.0) 12/22/20 18:53 Ur Specific [place] 1.012 (1.003-1.030) 12/22/20 18:53 Urine Protein >500 mg/dL (Negative) 12/22/20 18:53 Urine Glucose (UA) Neg mg/dL (Negative) 12/22/20 18:53 Urine Ketones Neg mg/dL (Negative) 12/22/20 18:53 Urine Blood Neg (Negative) 12/22/20 18:53 Urine Nitrite Neg (Negative) 12/22/20 18:53 Urine Bilirubin Neg (Negative) 12/22/20 18:53 Urine Urobilinogen < 2.0 mg/dL (<2.0) 12/22/20 18:53 Ur Leukocyte Esterase Neg (Negative) 12/22/20 18:53 Urine WBC (Auto) < 1.0 /HPF (0.0-6.0) 12/22/20 18:53 Urine RBC (Auto) 1.0 /HPF (0.0-6.0) 12/22/20 18:53 Fluid Type Dialysate 12/22/20 Unknown Fluid Color Colorless 12/22/20 Unknown Fluid Appearance Cloudy 12/22/20 Unknown Fluid WBC 208 /mm3 12/22/20 Unknown Fluid RBC 45 /mm3 12/22/20 Unknown Fluid Seg Neutrophils 82.0 % 12/22/20 Unknown Fluid Lymphocytes 11.0 % 12/22/20 Unknown Fluid Reactive Lymphs 0 % 12/22/20 Unknown Fluid Monocytes 7.0 % 12/22/20 Unknown Fluid Eosinophils 0 % 12/22/20 Unknown Fluid Basophils 0 % 12/22/20 Unknown Random Vancomycin 13.7 ug/mL (0-40.0) 12/26/20 Unknown Digoxin 0.9 ng/mL (0.9-2.0) 02/04/21 05:40 Hepatitis A IgM Ab Non-reactive (NonReactive) 02/02/21 12:41 Hep Bs Antigen Non-reactive (Negative) 02/02/21 12:41 Hep B Core IgM Ab Non-reactive (NonReactive) 02/02/21 12:41 Hepatitis C Antibody Non-reactive (NonReactive) 02/02/21 12:41 Blood Type A POSITIVE 01/06/21 07:10 Antibody Screen Negative 01/06/21 07:10 Crossmatch See Detail 01/06/21 07:10 Jeffery/IV: Voiding Method Bedside Commode Active Medications - Current Medications Current Medications: Generic Name Dose Route Start Last Admin Trade Name Freq PRN Reason Stop Dose Admin Acetaminophen 650 mg 12/31/20 15:30 01/21/21 05:28 Acetaminophen 650 Mg Rect Supp ID 650 mg Q6H PRN Administration Non Cardiac Pain or Temp>100.5 Clonidine HCl 0.2 mg 01/11/21 10:00 02/08/21 10:00 Clonidine Tts 0.2 Mg/24 Hr Patch TD Not Given We THOMAS Dextrose 50 ml 01/14/21 17:59 01/18/21 15:10 Dextrose 50% In Water (25gm) 50 Ml Syringe IV 20 ml Q30MIN PRN Administration Hypoglycemia Protocol Digoxin 0.125 mg 02/04/21 10:00 02/10/21 10:19 Digoxin 0.125 Mg Tab PO 0.125 mg Q48HR HTOMAS Administration Diphenhydramine HCl 50 mg 01/20/21 10:10 02/01/21 14:15 Diphenhydramine 50 Mg/Ml Vial IV 50 mg Q6H PRN Administration Itching Diphenoxylate HCl/Atropine 1 tab 02/06/21 18:00 02/11/21 07:00 Diphenoxylate/Atropine Tab PO 1 tab Q6H THOMAS Administration Famotidine 10 mg 12/24/20 13:00 02/10/21 21:01 Famotidine 20 Mg/2 Ml Inj IV 10 mg BID THOMAS Administration Fluticasone Propionate 50 mcg 02/07/21 10:00 02/10/21 10:16 Fluticasone Propionate Nasal [place] 16 Gm NS 50 mcg QDAY THOMAS Administration Haloperidol Lactate 5 mg 12/29/20 14:16 01/22/21 23:56 Haloperidol Lactate 5 Mg/1 Ml Inj IV 5 mg Q12H PRN Administration Agitation Heparin Sodium (Porcine) 5,000 unit 12/24/20 10:00 02/10/21 21:01 Heparin 5,000 Unit/1 Ml Vial SUB-Q 5,000 unit Q12HR THOMAS Administration Hydralazine HCl 10 mg 01/10/21 14:00 02/11/21 07:01 Hydralazine 20 Mg/1 Ml Inj IV Not Given Q4HR [facility] Hydrocortisone Acetate 1 applic 02/01/21 18:43 Hydrocortisone 1% Cream 28.4gm TP Q8H PRN Skin Irritation Hydromorphone HCl 0.25 mg 01/09/21 10:53 02/09/21 05:04 Hydromorphone 1 Mg/1 Ml Inj IV 0.25 mg Q6H PRN Administration Pain , Severe (7-10) Sodium Chloride 100 mls @ 999 mls/hr 01/27/21 18:37 Nacl 0.9% IV [place] PRN Hypotension Amino Acids/Electrolytes/Dextrose 2,016 mls @ 84 mls/hr 02/10/21 20:00 02/10/21 20:51 Tpn Adult IV 02/11/21 19:59 84 mls/hr DAILY@1999 [facility] Administration Protocol Insulin Glargine 5 units 01/18/21 22:00 02/11/21 01:19 Insulin Glargine 100 Units/Ml SUB-Q Not Given QHS [facility] Insulin Human Lispro 0 unit 01/03/21 12:00 02/11/21 07:01 Insulin Lispro 100 Unit/Ml SUB-Q Not Given Q6HR [facility] Protocol Metoprolol Tartrate 5 mg 12/30/20 12:00 02/11/21 07:00 Metoprolol Tartrate 5 Mg/5 Ml Inj IV Not Given Q4HR [facility] Morphine Sulfate 2 mg 02/02/21 12:00 02/03/21 13:31 Morphine 2 Mg/1 Ml Inj IV 2 mg Q3H PRN Administration Pain, Moderate (4-6) Ondansetron HCl 4 mg 01/25/21 11:56 02/08/21 12:44 Ondansetron 4 Mg/2 Ml Inj IV 4 mg Q4H PRN Administration Nausea And Vomiting Potassium Chloride 40 meq 02/11/21 08:00 Potassium Chloride Er 20 Meq Tab PO 02/11/21 11:00 ONCE [facility] Scopolamine 1 each 01/15/21 11:00 02/08/21 10:00 Scopolamine Transdermal Patch 72 Hr TD Not Given Q3D THOMAS Sodium Chloride 10 ml 12/22/20 22:00 02/10/21 10:17 Sodium Chloride 0.9% 10 Ml Flush Syringe IV 10 ml BID THOMAS Administration Sodium Chloride 10 ml 12/22/20 19:42 01/29/21 02:08 Sodium Chloride 0.9% 10 Ml Flush Syringe IV 10 ml PRN PRN Administration LINE FLUSH Nutrition/Malnutrition Assess - Dietary Evaluation Nutrition/Malnutrition Findings: Nutrition Notes Start: 12/24/20 12:36 Freq: Status: Active Protocol: Document 02/10/21 09:14 CW (Rec: 02/10/21 09:33 CW [id number]) Nutrition Notes Initial or Follow up Reassessment Current Diagnosis CKD (stage V CKD),Sepsis, Hypertension,Heart Failure, Small Bowel Obstruction Other Pertinent Diagnosis onHD, s/p exp lap, s/p bowel resections, afib Current Diet CPN at 84 ml/hr+ Clear Liquids Labs/Tests Cl 95.4 BUN 65 Cr 10.2 Phos 2.2 Mg 2.8 Pertinent Medications Reviewed Height 5 ft 7 in Weight 84 kg [place] Body Weight (kg) 67.27 BMI 29.0 Weight Status Overweight Subjective/Other Information Day 47 TPN. Pt continues to have loose stool but it is improving. Percent of energy/protein needs met: 95%/100% Burn Absent Trauma Absent GI Symptoms Diarrhea Current % PO Negligible Minimum of two criteria No Reduced [place] Strength Measurably Reduced (severe) #2 Nutrition Diagnosis Increased nutrient needs ( specify in comment below) Diagnosis Progress(for reassessment Continues documentation) #1 Nutrition Diagnosis Inadequate oral intake Diagnosis Progress(for reassessment Continues documentation) Is patient on ventilator? No Is Patient Ambulatory and/or Out of Bed No REE-([facility]-confined to bed) [phone] Calculation Used for Recommendations [facility] Additional Notes Pro needs 1.2-1.3g/k- 109g/day Fluid needs per MD. Nutrition Intervention Change Diet Order: Continue CPN Nutrition Support: Continue CPN at 84 ml/hr. MVI, Lipids, Mg 0 mEq, phos 10 mmols Kcal 2,174 Protein (gm) 121 Carbohydrates (gm) 350 Fat (gm) 50 Fluid (mL) 2,266 Fiber (gm) 0 Goal #1 Meet at least 75% of estimated energy and protein needs via CPN Anticipated Discharge Needs: continuous TPN at 84ml/hr Follow-Up By: 02/11/21 Additional Comments Labs in am: BMP, Mg, Phos
--- NOTE | 2021-02-11 09:08 | Progress Note ---
Assessment and Plan Paroxysmal atrial fibrillation currently, he is sinus rhythm on telemetry Patient is not a candidate for anticoagulation due to his postoperative status and the presence of severe anemia. Hx of nonischemic cardiomyopathy, resolving LVEF 50-55% by echo this presentation Small bowl obstruction status post multiple surgeries ESRD now on HD Anemia s/p PRBCs Patient is status post gastrostomy tube. Will transition to oral digoxin, and oral metoprolol for paroxysmal atrial fibrillation. Patient is not a candidate for anticoagulation due to his postoperative status and the presence of severe anemia. Otherwise, conservative cardiac management. Subjective Date of service: 02/11/21 Principal diagnosis: Ac hypoxemic resp failure; Severe Sepsis; Peritonitis; Acute SBO; ESRD; CHF Interval history: No significant events overnight Objective Vital Signs Temp Pulse Resp Resp BP BP Pulse Ox 02/11/21 07:14 98.5 F 82 18 129/59 97 02/11/21 04:58 98.7 F 86 18 117/55 100 02/11/21 01:12 17 17 02/11/21 00:15 99.6 F 86 18 133/55 98 02/10/21 22:13 75 17 138/78 96 02/10/21 22:03 93 H 149/69 02/10/21 21:02 65 155/85 02/10/21 20:37 99.1 F 68 18 152/68 98 02/10/21 20:23 97.9 F 83 20 155/85 02/10/21 19:30 97.2 F L 67 18 140/71 02/10/21 19:15 84 158/84 02/10/21 19:00 67 151/79 02/10/21 18:45 67 144/79 02/10/21 18:30 77 147/63 02/10/21 18:15 74 147/79 02/10/21 18:00 81 162/79 02/10/21 17:45 80 150/80 02/10/21 17:30 61 133/83 02/10/21 17:15 84 134/69 02/10/21 17:00 84 151/72 02/10/21 16:45 85 140/74 02/10/21 16:30 60 150/70 02/10/21 16:15 70 158/82 02/10/21 16:00 72 144/69 02/10/21 15:45 82 152/70 02/10/21 14:15 98.1 F 89 16 138/71 95 02/10/21 10:19 53 L 139/70 02/10/21 10:18 53 L 139/70 - Physical Examination General: No Apparent Distress HEENT: Positive: PERRL, Normocephaly Neck: Positive: neck supple, trachea midline Lungs: Positive: clear to auscultation Neuro: Positive: Grossly Intact Abdomen: Positive: Unremarkable, Other (post op) Skin: Positive: Clear Extremities: Absent: edema - Labs and Meds Comprehensive Metabolic Panel 02/10/21 02/11/21 Range/Units 22:48 04:20 Sodium 135 L 136 L (137-145) mmol/L Potassium 3.1 L 3.3 L (3.6-5.0) mmol/L Chloride 96.3 L 97.4 L (98-107) mmol/L Carbon Dioxide 28 26 (22-30) mmol/L BUN 29 H 34 H (9-20) mg/dL Creatinine 6.2 H 6.9 H (0.8-1.3) mg/dL Glucose 115 H 116 H (75-100) mg/dL Calcium 8.0 L 8.6 (8.4-10.2) mg/dL - Allied health notes Allied health notes reviewed: nursing
[2021-02-11] MEDS: SCOPOLAMINE TRANSDERMAL PATCH 72 HR TD SCH (09:55)
[2021-02-11] MEDS: HEPARIN 5,000 UNIT/1 ML VIAL SUB-Q SCH ×2 (09:55→22:42)
[2021-02-11] MEDS: FAMOTIDINE 20 MG/2 ML INJ IV SCH ×2 (09:56→22:41)
--- NOTE | 2021-02-11 10:55 | Event Note ---
Date: 02/11/21 No acute events overnight. Patient resting comfortably in bed. No change in clinical status. Patient expresses desire to be discharged to home. Will speak with case management for evaluation for home health, home PT, and home TPN. Patient will require TPN nutrition for the foreseeable future as his GI tract is suboptimally functional. Patient needs optimal nutrition to completely close his anastomotic leak. Leak is currently being controlled with a low output fistula via his HARIS drain.
[2021-02-11] MEDS ORDERED: TOTAL PARENTERAL NUTRITION 2,016 ML IV SCH (20:00)
--- NOTE | 2021-02-11 20:11 | Progress Note ---
Assessment and Plan Assessment: * ESRD previously on peritoneal dialysis; now on back up HD (on peritoneal dialysis for 2 years) * Small bowel obstruction --s/p ex-lap with jejuno-ileal anastamosis --s/p ex lap with extensive lysis of adhesions and two small bowel resections with primary anastamosis for SBO with necrotic segment small bowel. --s/p ex lap, resection of perforated anastamosis, washout and abthera wound vac placement. --s/p ex lap with right hemicolectomy. * Acute respiratory failure, s/p extubation * Septic shock - resolved * Bacteremia - resolved * Anemia of ESRD * Atrial fibrilation, new onset * Post op ileus Plan: * Continue HD MWF via left IJ permcath (12/27) * 3K bath with dialysis * Decreased UF while experiencing ongoing diarrhea * Epogen 10k units w/ dialysis * Rate control per cardiology * Nutrition per primary team * Maintatin MAP >65 * Surgery notes reviewed. Octreotide d/c by surgery. HARIS drain inplace. * He will also require outpatient hemodialysis chair prior to discharge * Elevated BUN likely secondary to catabolic state. Continue increased dialysis time - 4 hours. Subjective Date of service: 02/11/21 Principal diagnosis: Ac hypoxemic resp failure; Severe Sepsis; Peritonitis; Acute SBO; ESRD; CHF Interval history: Resting. receiving TPN Objective - Exam Narrative Exam: General appearance: NAD Eyes: anicteric sclerae HENT: Normocephalic, Atraumatic Neck: supple, tracheal midline, no JVD Lungs: CTAB CV: RRR Abdomen: Soft, distended, periumbilical tenderness Extremities: no edema, no cyanosis Skin: No rash. Psych: Calm Neuro: Following commands - Vital Signs Vital signs: Vital Signs - 12hr 02/11/21 02/11/21 02/11/21 09:56 11:24 14:17 Temperature 97.7 F Pulse Rate 82 77 74 Respiratory 16 Rate Blood Pressure 129/59 128/62 136/70 O2 Sat by Pulse 96 98 Oximetry 02/11/21 02/11/21 02/11/21 14:18 14:19 15:32 Temperature 97.0 F L Pulse Rate 75 75 83 Respiratory 18 Rate Blood Pressure 136/70 136/70 120/61 O2 Sat by Pulse 99 Oximetry 02/11/21 18:25 Temperature Pulse Rate 76 Respiratory Rate Blood Pressure 145/77 O2 Sat by Pulse Oximetry - Lab 02/07/21 04:35 02/11/21 04:20 Most recent lab results ABG pH 7.345 pH Units (7.350-7.450) L 01/07/21 17:14 ABG pCO2 40.3 mm Hg 01/07/21 17:14 ABG pO2 67.4 mm Hg (80.0-90.0) L 01/07/21 17:14 ABG HCO3 21.5 mmol/L (20.0-26.0) 01/07/21 17:14 ABG O2 Saturation 94.3 % (95.0-99.0) L 01/07/21 17:14 Calcium 8.6 mg/dL (8.4-10.2) 02/11/21 04:20 Phosphorus 2.00 mg/dL (2.5-4.5) L 02/11/21 04:20 Magnesium 1.90 mg/dL (1.7-2.3) 02/11/21 04:20 Medications & Allergies - Medications Allergies/Adverse Reactions: Allergies No Known Allergies Allergy (Verified 06/09/20 15:27) Home Medications: Home Medications Medication Instructions Recorded Confirmed Last Taken Type Albuterol Mdi (or & Nicu Only) 2 puff IH QID PRN #1 inhalation 04/01/17 02/05/21 10/31/20 09:00 Rx [ProAir HFA Inhaler] Calcium Acetate 667 mg PO DAILY 04/20/20 02/05/21 10/31/20 09:00 History Centrum Men's Tablet 1 tab PO DAILY 04/20/20 02/05/21 10/31/20 09:00 History Cinacalcet 30 mg PO DAILY 04/20/20 02/05/21 10/31/20 09:00 History Dialyvite with Zinc Tablet 1 tab PO DAILY 04/20/20 02/05/21 10/31/20 09:00 History Magnesium 250 mg PO BID 04/20/20 02/05/21 10/31/20 17:00 History Triamcinolone 0.1% 1 1000units TRANSDERMA DAILY 04/20/20 02/05/21 10/31/20 09:00 History Vit B12/Folic Acid/B6/Aa No.15 1,000 mg PO DAILY 04/20/20 02/05/21 10/31/20 09:00 History amLODIPine 10 mg PO DAILY 06/09/20 02/05/21 10/31/20 09:00 History AtorvaSTATin 40 mg PO HS 11/01/20 02/05/21 10/31/20 21:00 History Benadryl 25 mg PO HS 11/01/20 02/05/21 10/31/20 21:00 History Diclofenac 1 applic TRANSDERMA QID 11/01/20 02/05/21 10/31/20 19:00 History Fluticasone Propionate 1 spray INTRANASAL DAILY 11/01/20 02/05/21 10/31/20 09:00 History Vitamin D3 2,000 units PO QDAY 11/01/20 02/05/21 10/31/20 09:00 History carvediloL 12.5 mg PO DAILY 11/01/20 02/05/21 10/31/20 09:00 History hydrALAZINE 100 mg PO TID 11/01/20 02/05/21 10/31/20 19:00 History Active Medications: Generic Name Dose Route Start Last Admin Trade Name Freq PRN Reason Stop Dose Admin Acetaminophen 650 mg 12/31/20 15:30 01/21/21 05:28 Acetaminophen 650 Mg Rect Supp [place] 650 mg Q6H PRN Administration Non Cardiac Pain or Temp>100.5 Clonidine HCl 0.2 mg 01/11/21 10:00 02/08/21 10:00 Clonidine Tts 0.2 Mg/24 Hr Patch TD Not Given We THOMAS Dextrose 50 ml 01/14/21 17:59 01/18/21 15:10 Dextrose 50% In Water (25gm) 50 Ml Syringe IV 20 ml Q30MIN PRN Administration Hypoglycemia Protocol Digoxin 0.125 mg 02/04/21 10:00 02/10/21 10:19 Digoxin 0.125 Mg Tab PO 0.125 mg Q48HR THOMAS Administration Diphenhydramine HCl 50 mg 01/20/21 10:10 02/01/21 14:15 Diphenhydramine 50 Mg/Ml Vial IV 50 mg Q6H PRN Administration Itching Diphenoxylate HCl/Atropine 1 tab 02/06/21 18:00 02/11/21 18:26 Diphenoxylate/Atropine Tab PO 1 tab Q6H THOMAS Administration Famotidine 10 mg 12/24/20 13:00 02/11/21 09:56 Famotidine 20 Mg/2 Ml Inj IV 10 mg BID THOMAS Administration Fluticasone Propionate 50 mcg 02/07/21 10:00 02/10/21 10:16 Fluticasone Propionate Nasal [place] 16 Gm NS 50 mcg QDAY THOMAS Administration Haloperidol Lactate 5 mg 12/29/20 14:16 01/22/21 23:56 Haloperidol Lactate 5 Mg/1 Ml Inj IV 5 mg Q12H PRN Administration Agitation Heparin Sodium (Porcine) 5,000 unit 12/24/20 10:00 02/11/21 09:55 Heparin 5,000 Unit/1 Ml Vial SUB-Q 5,000 unit Q12HR [facility] Administration Hydralazine HCl 10 mg 01/10/21 14:00 02/11/21 18:25 Hydralazine 20 Mg/1 Ml Inj IV 10 mg Q4HR THOMAS Administration Hydrocortisone Acetate 1 applic 02/01/21 18:43 Hydrocortisone 1% Cream 28.4gm TP Q8H PRN Skin Irritation Hydromorphone HCl 0.25 mg 01/09/21 10:53 02/09/21 05:04 Hydromorphone 1 Mg/1 Ml Inj IV 0.25 mg Q6H PRN Administration Pain , Severe (7-10) Sodium Chloride 100 mls @ 999 mls/hr 01/27/21 18:37 Nacl 0.9% IV [place] PRN Hypotension Amino Acids/Electrolytes/Dextrose 2,016 mls @ 84 mls/hr 02/11/21 20:00 Tpn Adult IV 02/12/21 19:59 DAILY@1999 [facility] Protocol Insulin Glargine 5 units 01/18/21 22:00 02/11/21 01:19 Insulin Glargine 100 Units/Ml SUB-Q Not Given QHS [facility] Insulin Human Lispro 0 unit 01/03/21 12:00 02/11/21 18:27 Insulin Lispro 100 Unit/Ml SUB-Q Not Given Q6HR [facility] Protocol Metoprolol Tartrate 5 mg 12/30/20 12:00 02/11/21 18:25 Metoprolol Tartrate 5 Mg/5 Ml Inj IV 5 mg Q4HR [facility] Administration Morphine Sulfate 2 mg 02/02/21 12:00 02/03/21 13:31 Morphine 2 Mg/1 Ml Inj IV 2 mg Q3H PRN Administration Pain, Moderate (4-6) Ondansetron HCl 4 mg 01/25/21 11:56 02/08/21 12:44 Ondansetron 4 Mg/2 Ml Inj IV 4 mg Q4H PRN Administration Nausea And Vomiting Scopolamine 1 each 01/15/21 11:00 02/11/21 09:55 Scopolamine Transdermal Patch 72 Hr TD 1 each Q3D THOMAS Administration Sodium Chloride 10 ml 12/22/20 22:00 02/11/21 10:00 Sodium Chloride 0.9% 10 Ml Flush Syringe IV 10 ml BID THOMAS Administration Sodium Chloride 10 ml 12/22/20 19:42 01/29/21 02:08 Sodium Chloride 0.9% 10 Ml Flush Syringe IV 10 ml PRN PRN Administration LINE FLUSH
[2021-02-11] MEDS: FLUTICASONE PROPIONATE NASAL SPRAY 16 GM NS SCH (20:48)
[2021-02-12] MEDS: INSULIN LISPRO 100 UNIT/ML SUB-Q SCH ×4 (01:15→17:23)
[2021-02-12] MEDS: DIPHENOXYLATE/ATROPINE TAB PO SCH ×4 (01:16→17:22)
[2021-02-12] MEDS: METOPROLOL TARTRATE 5 MG/5 ML INJ IV SCH ×6 (02:16→22:06)
[2021-02-12] MEDS: hydrALAZINE 20 MG/1 ML INJ IV SCH ×6 (02:17→22:06)
--- NOTE | 2021-02-12 09:30 | Progress Note ---
Assessment and Plan Assessment and plan: Severe Sepsis with shock Streptococcus bovis bacteremia/Prevotella bacteremia Gwendolyn albicans tracheal aspirate Small bowel obstruction/necrotic bowel s/p ex lap with extensive lysis of adhesions, 2 small bowel resections with primary anastomosis, right hemicolectomy, jejunal colonic anastomosis, segmental small bowel resection Postoperative ileus Atrial fibrillation with RVR Leukocytosis Hypochloremia Gwendolyn albicans in tracheal aspirate from 12/24 ESRD on PD, PermCath to be placed Transaminitis Systolic CHF(EF 35%) Crohn's disease Hypertension Hypokalemia and hypophosphatemia -[facility], surgery, infectious disease, nephrology, vascular surgery, cardiology consulted, appreciate recommendations -12/24 S/p ex lap with extensive expectations, 2 small bowel resections with primary anastomosis with surgery on 12/23 -s/p PICC and Permacath placement with vascular surgery on 12/27 -Extubated on 12/28, reintubated 12/31 for respiratory distress and extubated 01/08 -12/29 echocardiogram shows moderate concentric LVH, small pericardial effusion, transmitral Doppler flow pattern is grade 1 abnormal relaxation pattern, left- ventricular systolic function normal, LVEF 50 to 55%, no wall motion abnormalities. -01/01 CT abdomen/pelvis shows small pericardial effusion, mild coronary artery atherosclerotic calcification, small bilateral pleural effusions with associated volume loss, no convincing evidence of bowel obstruction or inflammation, postoperative changes from interval/recent midline laparotomy with a moderate amount of free fluid throughout the abdomen, small amount of dependent free air presumably postoperative -01/02 s/p ex lap, resection of perforated anastamosis, washout and abthera wound vac placement. -01/04 s/p ex lap with right hemicolectomy. -01/06 s/p exploratory laparotomy, Jejunal colonic anastomosis, Segmental small bowel resection. -s/p Vasopressor support with Levophed and vasopressin -Transitioned to HD from PD -HD per nephro, Epogen with HD -Strict NPO -cont TPN, Octreotide drip -s/p NGT to LIWS, now placed on G-tube for decompression - s/p rectal tube -s/p IV antibiotics -Tobacco abuse cessation counseling -Trend CBC, BMP DVT/GI prophylaxis: PPI, heparin subcu, SCDs to bilateral lower extremities while in bed Brief Course: This is a 60 YO Male with ESRD on PD, GERD, Crohn's Disease, Nicotine Dependence, HTN, Systolic CHF(EF 35%) who presented to the emergency department on 12/22 with complaints of abdominal pain which began shortly after eating fast food rated 10/10 which is periumbilical, constant, associated with fever, nausea and multiple sites of vomiting and self-reported inability to undergo PD. In the emergency room patient underwent a CT scan of the abdomen/pelvis which revealed evidence of partial small bowel obstruction, symptoms were consistent with bacterial peritonitis. Patient was admitted to the hospital service with sepsis, peritonitis, and small bowel obstruction with consults to general surgery, nephrology, infectious disease and [facility]. Daily clinical course: 12/23. Patient had temperature 101.2 F, tachycardia and elevated lactic acid on admission. Meet sepsis criteria. Started on IV antibiotics. ID has been consulted. Surgery consulted this a.m.-advised laparoscopy. He remains on NG tube connected to suction. 12/24. Patient was noted to have peritonitis yesterday and patient undergoing exploratory laparotomy. Patient remained intubated after procedure and is in ICU. Now on broad-spectrum antibiotics. ID on board. 12/25. Remains mechanically ventilated and sedated. Temp 103 Fahrenheit. Antibiotics broadened-ID added fluconazole and Flagyl. Blood cultures ordered. Plan to repeat CT abdomen tomorrow if not better. Surgery following. 12/26: Patient remains on mechanical ventilation on CMV tidal line 550, rate of 14, PEEP of 8 and 30% FiO2 and sedated on fentanyl 4 micrograms. Today we will remove his Jeffery and [facility] dropped his rate controlled him on CPAP. We will trend CBC given recent drop in H/H. 12/27: Patient remains intubated on CMV tidal volume 550, rate 12, PEEP 8 on 30% FiO2 at the time my examination. Patient's TPN will be changed to PPN. Adebayo dueñas's fentanyl drip will be changed to IV push fentanyl and have a permacath placed today and midline. Patient was placed on a spontaneous breathing trial was switched back to CMV prior to procedure. 12/28: Patient on fentanyl but awake and follows commands. At the time of my examination he was on a CPAP trial and is scheduled to receive HD today. s/o permacath and PICC placement with vascular yesterday. His blood culture grew Prevotella and addition to Streptococcus bovis. This evening Dr. Spicer attempted to extubate the patient and his heart rate went to the 180s. Stat EKG obtained and cardiology consulted. 12/29: Patient was started on amiodarone IV for A. fib RVR yesterday and today he is more rate controlled into the 70s and 80s. Patient was extubated yesterday and is currently on Ventimask. Patient will be transferred to [facility]. Patient continues to be n.p.o. with TPN and NG tube to LIS. He is hypokalemic today which was repleted. 12/30; patient was on IV amiodarone for treatment with RVR, rate is controlled. Patient was off oxygen. patient is n.p.o. and on TPN. Surgery is following the patient. 12/31: Patient was intubated overnight for respiratory distress and this morning on examination he was on assist control tidal volume 450, rate 20, PEEP 6, 100% FiO2 and RT was getting a ABG to adjust vent settings. Patient had a acute bump in WBC and per ID recommendations we will obtain a CT abdomen/pelvis if leukocytosis persist. Patient is on TPN and sedated with Levophed. Patient is also on vasopressor support with Levophed. Per surgery his ileus is resolving however will maintain OGT to LIWS. 01/01: Patient was started on a vasopressin yesterday late evening. This morning patient is on 20 mcg of Levophed and 0.03 vasopressin and sedated on 20 mcg of propofol. Patient WBC increased today and he is hypokalemic. We will treat hyperkalemia. Patient had a CT chest and abdomen/pelvis pending. The time examination total of 450, rate 20, PEEP of 6 and 35 percent FiO2. Per RN, Dr Pollock has stated that the patient will be returning to the OR today for likely anastomosis seen on CT abdomen/pelvis. 01/02: Patient noted, WBC improving, but noted to have anemia, will transfuse additional unit of Blood and repeat H/H. continue supportive care. 01/03: Continue to wean pressors, ABX PER ID, patient to return to OR today for washout and possible closure, CONTINUE TPN 01/04: Continues to show some improvement. Today is POD#12 s/p ex lap with extensive lysis of adhesions and two small bowel resections with primary anastamosis for SBO with necrotic segment small bowel. POD#3 s/p ex lap, resection of perforated anastamosis, washout and abthera wound vac placement. POD#1 s/p ex lap with right hemicolectomy. Surgery planning to take back to the OR on Saturday with the hope to anastamos ileum to transverse colon and close abdomen. keep NGT to suction. Pt in deep sedation due to open abdomen. Per ID - Continue IV Zosyn, renally dosed for Strep bacteremia treatment till 01/06/2021 -On TPN 01/05: Patient continues on HD, anticipate return to OR tomorrow for closure and anastemosis. Continues with deep sedation due to open abdomen 01/06: Continue supportive care, monitor pressures and electrolytes. He is post op Exploratory laparotomy, 2. Jejunal colonic anastomosis,3. Segmental small bowel resection and anastemosis closure today. Continue wound vac 01/07: Continue supportive care, Today is POD#15 s/p ex lap with extensive lysis of adhesions and two small bowel resections with primary anastamosis for SBO wit h necrotic segment small bowel. POD#6 s/p ex lap, resection of perforated anastamosis, washout and abthera wound vac placement. POD#4 s/p ex lap with right hemicolectomy. POD #1 exploratory laparotomy, 2. Jejunal colonic anastomosis,3. Segmental small bowel resection. Continue to monitor and sruthi ect electrolytes. Patient remains on fentanyl and TPN with lipids. Still hypoactive bowel sounds. 16: Patient now extubated, asked when he can go home, Still lethargic. Continue wound management, wound vac, Will need Rehab eval prior to discharge. 01/09: Patient remains on TPN, was started on labetalol drip per cardiology, patient had uncontrolled hypertension today however he cannot be given p.o. medications ileus resolves per surgery. Patient received hemodialysis today. NG tube remains to low intermittent suction. 01/10: Patient has some leukocytosis, slight hypokalemia and hyponatremia, metabolic acidosis. NG tube to LIWS, continue TPN. Patient will be downgraded to IMCU today. [facility] is working on placement. Will change frequency of hydralazine and discontinue labetalol drip. We will obtain a.m. BMP/mag/Phos and CBC. Infectious disease will like to start Zosyn if leukocytosis continues to worsen. 01/11: Patient leukocytosis has slightly improved potassium with in normal limits and other electrolytes are elevated but patient is scheduled for HD today. Remains on RA and A,A,Ox4. BP better controlled but remains elevated and we will increase clonidine dose. 01/12/2021; patient's blood pressure is better after dialysis and as needed IV medications and clonidine patch. Patient is followed by general surgery. Patient was alert and oriented and asked when he is going home. 01/13: Surgery is concerned about a leak at his anastamosis given increased output and will treat as controlled fistula and start an octreotide drip. And per surgery if he requires operative intervention will likely need to be left in discontinuity and eventual ileostomy as he has already failed two anastamoses. Patient still has tongue swelling and slurred speech. He is on Benadryl. 01/14: Patient's tongue swelling is improved, patient is alert and oriented, CAM ICU negative. Continue NG tube to low wall intermittent suction. Leukocytosis is improving. Hypomagnesemia resolved. Epogen with HD 01/15: Patient tongue swelling is much improved, bladder scan completed by bedside RN and he needed to be straight cathed. NGT output decreased. Leukocytosis improving. Patient has been having episodes of hypoglycemia during the day and he is on cyclic TPN, Lantus rescheduled to nightly and dosage decreased. 01/16: Continue management per ID and surgery. Will defer repeat CT of the abdomen to the team surgery has been approved by nephrology. Continue current diet and advance all to ice if okay with surgery discussed with nursing staff. 01/17: Discussed surgical recommendation of strict n.p.o. except for small amount of ice as patient has already failed to anastomosis. And risk for additional surgery with tissues were extremely friable from previous scar. He continues on octreotide drip to slow down GI output HARIS drain remains in place with NG suction for decompression. Patient verbalized understanding although stressed about being discharged. We will continue IMCU care unless otherwise advised by surgery. Prognosis remains guarded continue to monitor electrolytes considering GI output. 01/18: Continue supportive care, BP mildly elevated, continue to monitor, con tinue current therapy, if no return to PO soon may consider Increasing clonidine to 0.3, PO when ok with surgery. 01/19:Continue supportive care, Per ID continue IV Zosyn, plan to stop at 3 weeks from last surgery end date: 01/24/2021. Other management per surgery. Continue TPN. 01/20: Discussed with Surgery, will continue current management. Advised patient of the findings and plan. 01/21: Continue supportive care. Continue management per surgery advance diet when okay with surgery. Plan of care discussed with the patient in detail. 01/22: NG tube to be replaced explained to the patient why this is important. I agree with PT OT discussed with nursing staff very important to let the PT team know that they should manage HARIS drain while patient is ambulating so that he does not come out. Continue current management. Change in ocreotide to q8h and d/c drip NOTED 01/23: Continue supportive care, HD today, counselling provided to the patient on compliance with medical management 01/24: Replace NGT, Continue management per Surgery. POD 32. Mild hypokalemia noted, will replace. 01/25: Brief summary patient is a 60-year-old male admitted with abdominal pain and noted to have necrotic bowel concerning for PD associated peritonitis. Catheter was placed to convert to HD. Patient also underwent multiple surgical interventions. Initial cultures showed Streptococcus bovis bacteremia and Prevotella bacteremia a COLIN was without vegetations repeat blood cultures have b een negative. Part of the surgery is included ex lap, resection of perforated anastomosis, washout and a better wound VAC placement on 01/01. While progress has remained slow if has indeed shown some improvement. Patient is agitated about being in the hospital but understands the care management been provided his vital to his health and to prevent further surgeries. The NG tube has been pulled out 2 days ago he vehemently refused the tube being placed back but after a day of nausea with associated vomiting he was accepting of the chest tube to put back. He continues on TPN. We will continue to monitor electrolytes and correct as needed. This a.m. and erroneous blood was obtained likely from the same line as TPN repeat was done which showed normalizing factors. Patient completed antibiotics on 01/25/2020 . 01/26 Patient with severe sepsis with septic shock, small bowel obstruction, necrotic bowel s/p multiple surgeries. He complains of abdominal pain. No fever currently. He asked me when is he going home and i explained that he is not yet stable for discharge 01/27 Patient with severe sepsis with septic shock, small bowel obstruction, necrotic bowel s/p multiple surgeries. He complains of abdominal pain. No fever currently. Paroxysmal atrial fib managed by cardiology 01/28 Patient with severe sepsis with septic shock, small bowel obstruction, necrotic bowel s/p multiple surgeries. No fever currently. No abd pain currently. I discussed with Surgeon, Dr. Pollock. Continue current management. He also has paroxysmal afib, managed by Cardiology. 01/29 Patient with severe sepsis with septic shock, small bowel obstruction, necrotic bowel s/p multiple surgeries. No fever currently. No abd pain currently. I discussed with Surgeon, Dr. Pollock, yesterday. Continue current management. He also has paroxysmal afib, managed by Cardiology. He is on Metoprolol, Digoxin, Clonidine 01/30 Patient with severe sepsis with septic shock, small bowel obstruction, n ecrotic bowel s/p multiple surgeries. Patient is a 60-year-old male admitted with abdominal pain and noted to have necrotic bowel concerning for PD associated peritonitis. Catheter was placed to convert to HD. Patient also underwent multiple surgical interventions. Initial cultures showed Strep tococcus bovis bacteremia and Prevotella bacteremia a COLIN was without vegetations repeat blood cultures have been negative. Part of the surgery is included ex lap, resection of perforated anastomosis, washout and a better wound VAC placement on 01/01. While progress has remained slow if has indeed shown some improvement. Patient is agitated about being in the hospital but understands the care management been provided his vital to his health and to prevent further surgeries. He continues on TPN. No fever currently. Less abdominal pain. Discussed with Surgeon, Dr. Pollock, few days ago. Continue current management. He also has paroxysmal afib, managed by Cardiology. He is on Metoprolol, D igoxin, Clonidine. ESRD on dialysis managed by Nephrology. 01/31: Continue HARIS drain suction. Ongoing treatment for anastomotic leak/controlled low output fistula. Maintain LIWS to NGT and monitor output. continue q 8h ocreotide. cont TPN. Defer to general surgery for NG tube discontinuation. 02/01: planned for g-tube placement for gastric decompression. Removed NG tube today. S/p HD -tolerated well : Status post G-tube placement today, resume TPN, patient is off from rectal tube. Continue supportive care and follow general surgery recommendation for discharge planning. Hemodialysis per schedule 02/03 -02/05: cont TPN, G-tube suction, Continue supportive care and follow general surgery recommendation for discharge planning. Hemodialysis per schedule. 02/06: Per surgery Anastamotic leak slowing down and is a controlled fistula. Continue HARIS drain suction. Since HARIS drain has continued to stay about 10ml over the last several days, plan to continue lower dose of octreotide. continue g-tube to drainage for decompression. continue clear liquids and closely monitor HARIS drain output. patient need LTAC placement. Continue to replace electrolytes and monitor phosphate level 02/07/2021; Per surgery Anastamotic leak slowing down and is a controlled fistula. Continue HARIS drain suction. Since HARIS drain has continued to stay about 10ml over the last several days, plan to continue lower dose of octreotide. continue g-tube to drainage for decompression. continue clear liquids and closely monitor HARIS drain output. patient need LTAC placement. Continue to replace electrolytes and monitor phosphate level. 02/08/2021; patient need to be transferred to LTAC. Patient expressed he wants to go home. 02/09/2021; pending LTAC placement 02/10/2021; pending LTAC placement 02/11/2021;case management continues to find a place to take him. General surgery is considering to discharge him home with home health, home TPN. 02/12/2021; patient expressed to go home. Put a consult for case management to arrange home health and home TPN. History Interval history: Patient was seen and evaluated this morning Patient on TPN, tolerated clear liquid diet HARIS tube in place Hospitalist Physical - Physical exam Narrative exam: Patient was not in cardiopulmonary distress The patient appeared well nourished and normally developed. Vital signs as documented. Head exam is unremarkable. No scleral icterus . Neck is without jugular venous distension, thyromegaly, or carotid bruits. Lungs are clear to auscultation. Cardiac exam reveals regular rate and Rhythm. Abdominal exam reveals clean midline surgical laparatomy wound. HARIS tube in place Extremities are nonedematous and both femoral and pedal pulses are normal. PRODUCT EXPERT: Alert and oriented 3. No focal weakness. - Constitutional Vitals: Temp Pulse Resp BP Pulse Ox 98.7 F 77 77 H 137/69 100 02/12/21 08:00 02/12/21 08:00 02/12/21 08:00 02/12/21 08:00 02/12/21 08:00 General appearance: Present: no acute distress HEART Score - HEART Score Troponin: Troponin T 0.021 ng/mL (0.00-0.029) 12/22/20 14:38 Results - Labs CBC & Chem 7: 02/07/21 04:35 02/11/21 04:20 Labs: Laboratory Last Values WBC 9.6 K/mm3 (4.5-11.0) 02/07/21 04:35 RBC 2.52 M/mm3 (3.65-5.03) L 02/07/21 04:35 Hgb 8.0 gm/dl (11.8-15.2) L 02/07/21 04:35 Hct 22.5 % (35.5-45.6) L 02/07/21 04:35 MCV 89 fl (84-94) 02/07/21 04:35 MCH 32 pg (28-32) 02/07/21 04:35 MCHC 36 % (32-34) H 02/07/21 04:35 RDW 16.7 % (13.2-15.2) H 02/07/21 04:35 Plt Count 230 K/mm3 (140-440) 02/07/21 04:35 Lymph % (Auto) 12.7 % (13.4-35.0) L 02/07/21 04:35 [place] % (Auto) 10.2 % (0.0-7.3) H 02/07/21 04:35 Eos % (Auto) 5.0 % (0.0-4.3) H 02/07/21 04:35 Baso % (Auto) 0.5 % (0.0-1.8) 02/07/21 04:35 Lymph # (Auto) 1.2 K/mm3 (1.2-5.4) 02/07/21 04:35 [place] # (Auto) 1.0 K/mm3 (0.0-0.8) H 02/07/21 04:35 Eos # (Auto) 0.5 K/mm3 (0.0-0.4) H 02/07/21 04:35 Baso # (Auto) 0.0 K/mm3 (0.0-0.1) 02/07/21 04:35 Add Manual Diff Complete 01/10/21 09:26 Total Counted 100 01/10/21 09:26 Seg Neutrophils % 71.6 % (40.0-70.0) H 02/07/21 04:35 Seg Neuts % (Manual) 95.0 % (40.0-70.0) H 01/10/21 09:26 Band Neutrophils % 1.0 % 01/10/21 09:26 Lymphocytes % (Manual) 3.0 % (13.4-35.0) L 01/10/21 09:26 Reactive Lymphs % (Man) 1.0 % 12/29/20 05:16 Monocytes % (Manual) 1.0 % (0.0-7.3) 01/10/21 09:26 Eosinophils % (Manual) 2.0 % (0.0-4.3) 12/29/20 05:16 Metamyelocytes % 2.0 % 12/29/20 05:16 Nucleated RBC % Not Reportable 01/10/21 09:26 Seg Neutrophils # 6.9 K/mm3 (1.8-7.7) 02/07/21 04:35 Seg Neutrophils # Man 17.3 K/mm3 (1.8-7.7) H 01/10/21 09:26 Band Neutrophils # 0.2 K/mm3 01/10/21 09:26 Lymphocytes # (Manual) 0.5 K/mm3 (1.2-5.4) L 01/10/21 09:26 Abs React Lymphs (Man) 0.0 K/mm3 01/10/21 09:26 Monocytes # (Manual) 0.2 K/mm3 (0.0-0.8) 01/10/21 09:26 Eosinophils # (Manual) 0.0 K/mm3 (0.0-0.4) 01/10/21 09:26 Basophils # (Manual) 0.0 K/mm3 (0.0-0.1) 01/10/21 09:26 Metamyelocytes # 0.0 K/mm3 01/10/21 09:26 Myelocytes # 0.0 K/mm3 01/10/21 09:26 Promyelocytes # 0.0 K/mm3 01/10/21 09:26 Blast Cells # 0.0 K/mm3 01/10/21 09:26 WBC Morphology Not Reportable 01/10/21 09:26 Hypersegmented Neuts Not Reportable 01/10/21 09:26 Hyposegmented Neuts Not Reportable 01/10/21 09:26 Hypogranular Neuts Not Reportable 01/10/21 09:26 Smudge Cells Not Reportable 01/10/21 09:26 Toxic Granulation 1+ 01/10/21 09:26 Toxic Vacuolation Not Reportable 01/10/21 09:26 Dohle Bodies Not Reportable 01/10/21 09:26 Pelger-Huet Anomaly Not Reportable 01/10/21 09:26 Lamar Rods Not Reportable 01/10/21 09:26 Platelet Estimate Consistent w auto 01/10/21 09:26 Clumped Platelets Not Reportable 01/10/21 09:26 Plt Clumps, EDTA Not Reportable 01/10/21 09:26 Large Platelets Not Reportable 01/10/21 09:26 Giant Platelets Not Reportable 01/10/21 09:26 Platelet Satelliting Not Reportable 01/10/21 09:26 Plt Morphology Comment Not Reportable 01/10/21 09:26 RBC Morphology Not Reportable 01/10/21 09:26 Dimorphic RBCs Not Reportable 01/10/21 09:26 Polychromasia Not Reportable 01/10/21 09:26 Hypochromasia Not Reportable 01/10/21 09:26 Poikilocytosis Not Reportable 01/10/21 09:26 Anisocytosis 1+ 01/10/21 09:26 Microcytosis Not Reportable 01/10/21 09:26 Macrocytosis Not Reportable 01/10/21 09:26 Spherocytes Not Reportable 01/10/21 09:26 Pappenheimer Bodies Not Reportable 01/10/21 09:26 Sickle Cells Not Reportable 01/10/21 09:26 Target Cells Not Reportable 01/10/21 09:26 Tear Drop Cells Not Reportable 01/10/21 09:26 Ovalocytes Not Reportable 01/10/21 09:26 Helmet Cells Not Reportable 01/10/21 09:26 [place] Bodies Not Reportable 01/10/21 09:26 [place] Rings Not Reportable 01/10/21 09:26 [place] Cells Not Reportable 01/10/21 09:26 Bite Cells Not Reportable 01/10/21 09:26 Crenated Cell Not Reportable 01/10/21 09:26 Elliptocytes Not Reportable 01/10/21 09:26 Acanthocytes (Spur) Not Reportable 01/10/21 09:26 Rouleaux Not Reportable 01/10/21 09:26 Hemoglobin C Crystals Not Reportable 01/10/21 09:26 Schistocytes Not Reportable 01/10/21 09:26 Malaria parasites Not Reportable 01/10/21 09:26 Lucas Bodies Not Reportable 01/10/21 09:26 Hem Pathologist Commnt No 01/10/21 09:26 PT 16.9 Sec. (12.2-14.9) H 01/01/21 12:45 INR 1.39 (0.87-1.13) H 01/01/21 12:45 APTT 25.1 Sec. (24.2-36.6) 12/22/20 14:38 ABG pH 7.345 pH Units (7.350-7.450) L 01/07/21 17:14 POC ABG pCO2 41.4 mmHg (32.0-48.0) 01/07/21 03:07 ABG pCO2 40.3 mm Hg 01/07/21 17:14 POC ABG pO2 94.5 mmHg (83-108) 01/07/21 03:07 ABG pO2 67.4 mm Hg (80.0-90.0) L 01/07/21 17:14 POC ABG HCO3 22.7 01/07/21 03:07 ABG HCO3 21.5 mmol/L (20.0-26.0) 01/07/21 17:14 ABG O2 Saturation 94.3 % (95.0-99.0) L 01/07/21 17:14 ABG O2 Content 11.6 (0.0-44) 01/07/21 17:14 POC ABG Base Excess -2.7 01/07/21 03:07 ABG Base Excess -3.9 mmol/L (-2.0-3.0) L 01/07/21 17:14 ABG Hemoglobin 8.9 gm/dl (14.0-18.0) L 01/07/21 17:14 ABG Oxyhemoglobin 96.6 (94-98) 01/07/21 03:07 ABG Carboxyhemoglobin 1.5 % (0.0-5.0) 01/07/21 17:14 ABG Methemoglobin 0.6 % (0.0-1.5) 01/07/21 17:14 ABG Sodium 135.6 mmol/L (136.0-145.0) L 01/07/21 03:07 ABG Potassium 4.0 mmol/L (3.40-4.50) 01/07/21 03:07 ABG Chloride 102.0 mmol/L (98-107) 01/07/21 03:07 ABG Glucose 181 mg/dL (65-95) H 01/07/21 03:07 Oxyhemoglobin 92.3 % (95.0-99.0) L 01/07/21 17:14 Carboxyhemoglobin 0.7 (0.5-1.5) 01/07/21 03:07 FiO2 21 % 01/07/21 17:14 FiO2 % 45.0 01/07/21 03:07 Sodium 136 mmol/L (137-145) L 02/11/21 04:20 Potassium 3.3 mmol/L (3.6-5.0) L 02/11/21 04:20 Chloride 97.4 mmol/L (98-107) L 02/11/21 04:20 Carbon Dioxide 26 mmol/L (22-30) 02/11/21 04:20 Anion Gap 16 mmol/L 02/11/21 04:20 BUN 34 mg/dL (9-20) H 02/11/21 04:20 Creatinine 6.9 mg/dL (0.8-1.3) H 02/11/21 04:20 Estimated GFR 10 ml/min 02/11/21 04:20 BUN/Creatinine Ratio 5 % 02/11/21 04:20 Glucose 116 mg/dL (75-100) H 02/11/21 04:20 POC Glucose 105 mg/dL (70-105) 02/12/21 05:04 Lactic Acid 1.10 mmol/L (0.7-2.0) 01/14/21 05:39 Calcium 8.6 mg/dL (8.4-10.2) 02/11/21 04:20 Phosphorus 2.00 mg/dL (2.5-4.5) L 02/11/21 04:20 Magnesium 1.90 mg/dL (1.7-2.3) 02/11/21 04:20 Total Bilirubin 0.50 mg/dL (0.1-1.2) 02/05/21 06:30 AST 19 units/L (5-40) 02/05/21 06:30 ALT 22 units/L (7-56) 02/05/21 06:30 Alkaline Phosphatase 177 units/L (35-129) H 02/05/21 06:30 Ammonia 30.0 umol/L (25-60) 12/22/20 14:38 Troponin T 0.021 ng/mL (0.00-0.029) 12/22/20 14:38 Total Protein 6.0 g/dL (6.3-8.2) L 02/05/21 06:30 Albumin 2.9 g/dL (3.9-5) L 02/05/21 06:30 Albumin/Globulin Ratio 0.9 % 02/05/21 06:30 Triglycerides 72 mg/dL (2-149) 01/30/21 04:15 Lipase 41 units/L (13-60) 12/22/20 14:38 Procalcitonin > 200.00 ng/mL (<0.15) 12/24/20 15:06 TSH 1.470 mlU/mL (0.270-4.200) 12/28/20 19:44 Arterial Blood Glucose 181 mg/dL (65-95) H 01/07/21 03:07 Arterial Blood Ionized Calcium 4.3 mg/dL (4.6-5.3) L 01/07/21 03:07 Urine Color Yellow (Yellow) 12/22/20 18:53 Urine Turbidity Clear (Clear) 12/22/20 18:53 Urine pH 7.0 (5.0-7.0) 12/22/20 18:53 Ur Specific [place] 1.012 (1.003-1.030) 12/22/20 18:53 Urine Protein >500 mg/dL (Negative) 12/22/20 18:53 Urine Glucose (UA) Neg mg/dL (Negative) 12/22/20 18:53 Urine Ketones Neg mg/dL (Negative) 12/22/20 18:53 Urine Blood Neg (Negative) 12/22/20 18:53 Urine Nitrite Neg (Negative) 12/22/20 18:53 Urine Bilirubin Neg (Negative) 12/22/20 18:53 Urine Urobilinogen < 2.0 mg/dL (<2.0) 12/22/20 18:53 Ur Leukocyte Esterase Neg (Negative) 12/22/20 18:53 Urine WBC (Auto) < 1.0 /HPF (0.0-6.0) 12/22/20 18:53 Urine RBC (Auto) 1.0 /HPF (0.0-6.0) 12/22/20 18:53 Fluid Type Dialysate 12/22/20 Unknown Fluid Color Colorless 12/22/20 Unknown Fluid Appearance Cloudy 12/22/20 Unknown Fluid WBC 208 /mm3 12/22/20 Unknown Fluid RBC 45 /mm3 12/22/20 Unknown Fluid Seg Neutrophils 82.0 % 12/22/20 Unknown Fluid Lymphocytes 11.0 % 12/22/20 Unknown Fluid Reactive Lymphs 0 % 12/22/20 Unknown Fluid Monocytes 7.0 % 12/22/20 Unknown Fluid Eosinophils 0 % 12/22/20 Unknown Fluid Basophils 0 % 12/22/20 Unknown Random Vancomycin 13.7 ug/mL (0-40.0) 12/26/20 Unknown Digoxin 0.9 ng/mL (0.9-2.0) 02/04/21 05:40 Hepatitis A IgM Ab Non-reactive (NonReactive) 02/02/21 12:41 Hep Bs Antigen Non-reactive (Negative) 02/02/21 12:41 Hep B Core IgM Ab Non-reactive (NonReactive) 02/02/21 12:41 Hepatitis C Antibody Non-reactive (NonReactive) 02/02/21 12:41 Blood Type A POSITIVE 01/06/21 07:10 Antibody Screen Negative 01/06/21 07:10 Crossmatch See Detail 01/06/21 07:10 Jeffery/IV: Voiding Method Toilet Active Medications - Current Medications Current Medications: Generic Name Dose Route Start Last Admin Trade Name Freq PRN Reason Stop Dose Admin Acetaminophen 650 mg 12/31/20 15:30 01/21/21 05:28 Acetaminophen 650 Mg Rect Supp NM 650 mg Q6H PRN Administration Non Cardiac Pain or Temp>100.5 Clonidine HCl 0.2 mg 01/11/21 10:00 02/08/21 10:00 Clonidine Tts 0.2 Mg/24 Hr Patch TD Not Given We THOMAS Dextrose 50 ml 01/14/21 17:59 01/18/21 15:10 Dextrose 50% In Water (25gm) 50 Ml Syringe IV 20 ml Q30MIN PRN Administration Hypoglycemia Protocol Digoxin 0.125 mg 02/04/21 10:00 02/10/21 10:19 Digoxin 0.125 Mg Tab PO 0.125 mg Q48HR THOMAS Administration Diphenhydramine HCl 50 mg 01/20/21 10:10 02/01/21 14:15 Diphenhydramine 50 Mg/Ml Vial IV 50 mg Q6H PRN Administration Itching Diphenoxylate HCl/Atropine 1 tab 02/06/21 18:00 02/12/21 06:13 Diphenoxylate/Atropine Tab PO 1 tab Q6H THOMAS Administration Famotidine 10 mg 12/24/20 13:00 02/11/21 22:41 Famotidine 20 Mg/2 Ml Inj IV 10 mg BID THOMAS Administration Fluticasone Propionate 50 mcg 02/07/21 10:00 02/11/21 20:48 Fluticasone Propionate Nasal [place] 16 Gm NS Not Given QDAY [facility] Haloperidol Lactate 5 mg 12/29/20 14:16 01/22/21 23:56 Haloperidol Lactate 5 Mg/1 Ml Inj IV 5 mg Q12H PRN Administration Agitation Heparin Sodium (Porcine) 5,000 unit 12/24/20 10:00 02/11/21 22:42 Heparin 5,000 Unit/1 Ml Vial SUB-Q 5,000 unit Q12HR THOMAS Administration Hydralazine HCl 10 mg 01/10/21 14:00 02/12/21 06:06 Hydralazine 20 Mg/1 Ml Inj IV Not Given Q4HR [facility] Hydrocortisone Acetate 1 applic 02/01/21 18:43 Hydrocortisone 1% Cream 28.4gm TP Q8H PRN Skin Irritation Hydromorphone HCl 0.25 mg 01/09/21 10:53 02/09/21 05:04 Hydromorphone 1 Mg/1 Ml Inj IV 0.25 mg Q6H PRN Administration Pain , Severe (7-10) Sodium Chloride 100 mls @ 999 mls/hr 01/27/21 18:37 Nacl 0.9% IV [place] PRN Hypotension Amino Acids/Electrolytes/Dextrose 2,016 mls @ 84 mls/hr 02/11/21 20:00 02/11/21 20:47 Tpn Adult IV 02/12/21 19:59 84 mls/hr DAILY@2000 [facility] Administration Protocol Insulin Glargine 5 units 01/18/21 22:00 02/11/21 22:44 Insulin Glargine 100 Units/Ml SUB-Q 5 units QHS THOMAS Administration Insulin Human Lispro 0 unit 01/03/21 12:00 02/12/21 01:15 Insulin Lispro 100 Unit/Ml SUB-Q Not Given Q6HR [facility] Protocol Metoprolol Tartrate 5 mg 12/30/20 12:00 02/12/21 06:05 Metoprolol Tartrate 5 Mg/5 Ml Inj IV Not Given Q4HR [facility] Morphine Sulfate 2 mg 02/02/21 12:00 02/03/21 13:31 Morphine 2 Mg/1 Ml Inj IV 2 mg Q3H PRN Administration Pain, Moderate (4-6) Ondansetron HCl 4 mg 01/25/21 11:56 02/08/21 12:44 Ondansetron 4 Mg/2 Ml Inj IV 4 mg Q4H PRN Administration Nausea And Vomiting Scopolamine 1 each 01/15/21 11:00 02/11/21 09:55 Scopolamine Transdermal Patch 72 Hr TD 1 each Q3D THOMAS Administration Sodium Chloride 10 ml 12/22/20 22:00 02/11/21 22:43 Sodium Chloride 0.9% 10 Ml Flush Syringe IV 10 ml BID THOMAS Administration Sodium Chloride 10 ml 12/22/20 19:42 01/29/21 02:08 Sodium Chloride 0.9% 10 Ml Flush Syringe IV 10 ml PRN PRN Administration LINE FLUSH Nutrition/Malnutrition Assess - Dietary Evaluation Nutrition/Malnutrition Findings: Nutrition Notes Start: 12/24/20 12:36 Freq: Status: Active Protocol: Document 02/11/21 09:04 JOSE (Rec: 02/11/21 09:08 JOSE [id number]) Nutrition Notes Initial or Follow up Reassessment Current Diagnosis CKD (stage V CKD),Sepsis, Hypertension,Heart Failure, Small Bowel Obstruction Other Pertinent Diagnosis onHD, s/p exp lap, s/p bowel resections, afib Current Diet CPN at 84 ml/hr+ Clear Liquids Labs/Tests Na 136 K 3.3 Cl 97.4 BUN 34 Cr 6.9 Phos 2 Pertinent Medications 40mEq KCl x 1 dose Height 5 ft 7 in Weight 84 kg [place] Body Weight (kg) 67.27 BMI 29.0 Weight Status Overweight Subjective/Other Information Day 48 TPN. Pt tolerating cl liq diet. Awaiting placement. Percent of energy/protein needs met: 100% energy and pro Burn Absent Trauma Absent #2 Nutrition Diagnosis Increased nutrient needs ( specify in comment below) Diagnosis Progress(for reassessment Continues documentation) #1 Nutrition Diagnosis Inadequate oral intake Diagnosis Progress(for reassessment Continues documentation) Is patient on ventilator? No Is Patient Ambulatory and/or Out of Bed No REE-([facility]-confined to bed) [phone] Calculation Used for Recommendations [facility] Additional Notes Pro needs 1.2-1.3g/k- 109g/day Fluid needs per MD. Nutrition Intervention Nutrition Support: Continue CPN at 84 ml/hr: MVI, 5.5% amino acids, 70mEq K, 30mmol Phos. Osmolality: 1622 . Kcal 1,630 Protein (gm) 110 Carbohydrates (gm) 350 Fat (gm) 0 Fluid (mL) 2,016 Fiber (gm) 0 Goal #1 Meet at least 75% of estimated energy and protein needs via CPN Follow-Up By: 02/12/21 Additional Comments Labs in am: BMP, Mg, Phos
--- NOTE | 2021-02-12 10:07 | Progress Note ---
Assessment and Plan Paroxysmal atrial fibrillation currently, he is sinus rhythm on telemetry Patient is not a candidate for anticoagulation due to his postoperative status and the presence of severe anemia. Hx of nonischemic cardiomyopathy, resolving LVEF 50-55% by echo this presentation Small bowl obstruction status post multiple surgeries ESRD now on HD Anemia s/p PRBCs Patient is status post gastrostomy tube. Will transition to oral digoxin, and oral metoprolol for paroxysmal atrial fibrillation. Patient is not a candidate for anticoagulation due to his postoperative status and the presence of severe anemia. Otherwise, conservative cardiac management. Subjective Date of service: 02/12/21 Principal diagnosis: Ac hypoxemic resp failure; Severe Sepsis; Peritonitis; Acute SBO; ESRD; CHF Interval history: No significant events overnight Objective Vital Signs Temp Pulse Resp Resp BP BP Pulse Ox 02/12/21 08:00 98.7 F 77 77 H 137/69 100 02/12/21 05:03 98.6 F 73 18 132/66 98 02/12/21 03:00 17 02/11/21 23:19 98.4 F 76 18 139/71 100 02/11/21 19:54 98.6 F 79 18 130/64 96 02/11/21 18:25 76 145/77 02/11/21 15:32 97.0 F L 83 18 120/61 99 02/11/21 14:19 75 136/70 02/11/21 14:18 75 136/70 02/11/21 14:17 74 136/70 98 02/11/21 11:24 97.7 F 77 16 128/62 96 - Physical Examination General: No Apparent Distress HEENT: Positive: PERRL, Normocephaly Neck: Positive: neck supple, trachea midline Cardiac: Positive: Reg Rate and Rhythm Lungs: Positive: clear to auscultation Neuro: Positive: Grossly Intact Abdomen: Positive: Unremarkable, Other (post op) Skin: Positive: Clear Extremities: Absent: edema - Allied health notes Allied health notes reviewed: nursing
[2021-02-12] MEDS: HEPARIN 5,000 UNIT/1 ML VIAL SUB-Q SCH ×2 (10:13→22:06)
[2021-02-12] MEDS: FAMOTIDINE 20 MG/2 ML INJ IV SCH ×2 (10:14→22:06)
--- NOTE | 2021-02-12 10:59 | Progress Note ---
Assessment and Plan Acute hypoxemic respiratory failure, s/p mechanical ventilatory support. Severe Sepsis with septic shock, resolved Peritonitis Acute small-bowel obstruction with tissue necrosis. End-stage renal disease, on dialysis. Hypertension. Crohn's disease. Gastroesophageal reflux disease. Heart failure with reduced ejection fraction. Hyperkalemia. Anemia that is normocytic. Lactic acidosis. Oropharyngeal dysphagia Continue all current care as documented Continue g-tube to drainage for decompression. Continue clear liquids and closely monitor HARIS drain output. HARIS drain management per General surgery Discharge planning Will follow peripherally -Continue TPN. - continue bronchodilators with pulmonary hygiene per RT - HD/UF per nephrology prescription for toxin and volume control - avoid nephrotoxins, renally dose all medications - continue accuchecks with glycemic control per SSI (Target blood glucose of 140-180 mg/dL; avoid hypoglycemia) - continue to avoid benzodiazepines, reduce the possibility of delirium - prn analgesia per CPOT score - Maintenance of sleep-wake cycle, avoid delirium - Stress ulcer and VTE prophylaxis - continue mobility protocols for pressure ulcer prophylaxis - Monitor hemodynamics closely - continue other care per attending / other consultants CONDITION: FAIR PROGNOSIS: GUARDED CODE STATUS: FULL CODE Subjective Date of service: 02/12/21 Principal diagnosis: Ac hypoxemic resp failure; Severe Sepsis; Peritonitis; Acute SBO; ESRD; CHF Interval history: Patient is seen today for: Ac hypoxemic resp failure; Severe Sepsis; Periton itis; Acute SBO; ESRD on Dialysis; HTN; Crohn's disease; HFrEF Seen and examined at bedside; 24hour events reviewed; nursing and respiratory care staff consulted; no adverse overnight events reported to me; resting in bed;No chest pain, no shortness of breath, no fevers or chills. Remains on TPN and will need emergency room physician assistant TPN, tolerating small sips of water Objective Vital Signs - 12hr 02/11/21 02/12/21 02/12/21 23:19 03:00 05:03 Temperature 98.4 F 98.6 F Pulse Rate 76 73 Respiratory 18 18 Rate Respiratory 17 Rate [Anterior Abdomen] Blood Pressure 139/71 132/66 Blood Pressure [Right] O2 Sat by Pulse 100 98 Oximetry 02/12/21 08:00 Temperature 98.7 F Pulse Rate 77 Respiratory 77 H Rate Respiratory Rate [Anterior Abdomen] Blood Pressure Blood Pressure 137/69 [Right] O2 Sat by Pulse 100 Oximetry Constitutional: no acute distress, alert, other (00) Eyes: non-icteric ENT: oropharynx moist Neck: supple, no lymphadenopathy, no JVD Effort: normal Ascultation: Bilateral: clear, diminished breath sounds, rales, rhonchi Percussion: Bilateral: not dull Cardiovascular: regular rate and rhythm, other (S1,S2) Gastrointestinal: hypoactive bowel sounds, soft, non-tender, non-distended (protuberant), other (Midline abdominal incision; + PEG) Integumentary: other (Midline abdominal incision ) Extremities: no cyanosis, no edema, pulses normal, no ischemia or petechiae Neurologic: non-focal exam (grossly), pupils equal and round, CN II-XII normal Psychiatric: mood appropriate, affect normal CBC and BMP: 02/07/21 04:35 02/13/21 06:05 ABG, PT/INR, D-dimer: ABG ABG pH 7.345 pH Units (7.350-7.450) L 01/07/21 17:14 POC ABG pCO2 41.4 mmHg (32.0-48.0) 01/07/21 03:07 ABG pCO2 40.3 mm Hg 01/07/21 17:14 POC ABG pO2 94.5 mmHg (83-108) 01/07/21 03:07 ABG pO2 67.4 mm Hg (80.0-90.0) L 01/07/21 17:14 POC ABG HCO3 22.7 01/07/21 03:07 ABG O2 Saturation 94.3 % (95.0-99.0) L 01/07/21 17:14 PT/INR, D-dimer PT 16.9 Sec. (12.2-14.9) H 01/01/21 12:45 INR 1.39 (0.87-1.13) H 01/01/21 12:45 Abnormal lab findings: Abnormal Labs 12/22/20 12/22/20 12/22/20 14:38 14:38 14:38 WBC RBC Hgb 11.2 L Hct 35.0 L MCV MCHC RDW 16.7 H Plt Count Lymph % (Auto) [place] % (Auto) Eos % (Auto) Lymph # (Auto) [place] # (Auto) Eos # (Auto) Seg Neutrophils % Seg Neuts % (Manual) 94.0 H Lymphocytes % (Manual) 5.0 L Monocytes % (Manual) Seg Neutrophils # Seg Neutrophils # Man Lymphocytes # (Manual) 0.3 L Monocytes # (Manual) PT INR ABG pH POC ABG pCO2 POC ABG pO2 ABG pO2 ABG HCO3 ABG O2 Saturation ABG Base Excess ABG Hemoglobin ABG Oxyhemoglobin ABG Sodium ABG Potassium ABG Chloride ABG Glucose Oxyhemoglobin Sodium Potassium Chloride Carbon Dioxide BUN 58 H Creatinine 13.2 H Glucose 113 H POC Glucose Lactic Acid 3.60 H* Calcium Phosphorus Magnesium Total Bilirubin 1.30 H AST ALT Alkaline Phosphatase 155 H Total Protein Albumin Triglycerides Arterial Blood Glucose Arterial Blood Ionized Calcium Digoxin Crossmatch 12/22/20 12/22/20 12/23/20 16:26 17:47 05:22 WBC RBC Hgb Hct MCV MCHC RDW Plt Count Lymph % (Auto) [place] % (Auto) Eos % (Auto) Lymph # (Auto) [place] # (Auto) Eos # (Auto) Seg Neutrophils % Seg Neuts % (Manual) Lymphocytes % (Manual) Monocytes % (Manual) Seg Neutrophils # Seg Neutrophils # Man Lymphocytes # (Manual) Monocytes # (Manual) PT INR ABG pH POC ABG pCO2 POC ABG pO2 ABG pO2 ABG HCO3 ABG O2 Saturation ABG Base Excess ABG Hemoglobin ABG Oxyhemoglobin ABG Sodium ABG Potassium ABG Chloride ABG Glucose Oxyhemoglobin Sodium Potassium Chloride Carbon Dioxide BUN Creatinine Glucose POC Glucose Lactic Acid 2.80 H* 3.10 H* 2.30 H* Calcium Phosphorus Magnesium Total Bilirubin AST ALT Alkaline Phosphatase Total Protein Albumin Triglycerides Arterial Blood Glucose Arterial Blood Ionized Calcium Digoxin Crossmatch 12/23/20 12/23/20 12/23/20 05:22 05:22 06:35 WBC 12.1 H RBC Hgb 11.0 L Hct 33.7 L MCV MCHC RDW 16.9 H Plt Count Lymph % (Auto) [place] % (Auto) Eos % (Auto) Lymph # (Auto) [place] # (Auto) Eos # (Auto) Seg Neutrophils % Seg Neuts % (Manual) 93.0 H Lymphocytes % (Manual) 1.0 L Monocytes % (Manual) Seg Neutrophils # Seg Neutrophils # Man 11.3 H Lymphocytes # (Manual) 0.1 L Monocytes # (Manual) PT INR ABG pH POC ABG pCO2 POC ABG pO2 ABG pO2 ABG HCO3 ABG O2 Saturation ABG Base Excess ABG Hemoglobin ABG Oxyhemoglobin ABG Sodium ABG Potassium ABG Chloride ABG Glucose Oxyhemoglobin Sodium Potassium 5.7 H D Chloride Carbon Dioxide BUN 73 H Creatinine 14.2 H Glucose POC Glucose Lactic Acid 2.30 H* Calcium 7.9 L Phosphorus Magnesium Total Bilirubin 1.40 H AST 119 H ALT 130 H Alkaline Phosphatase 183 H Total Protein 6.1 L Albumin 3.6 L Triglycerides Arterial Blood Glucose Arterial Blood Ionized Calcium Digoxin Crossmatch 12/23/20 12/23/20 12/23/20 11:40 13:53 16:47 WBC RBC Hgb 10.0 L Hct 30.4 L MCV MCHC RDW Plt Count Lymph % (Auto) [place] % (Auto) Eos % (Auto) Lymph # (Auto) [place] # (Auto) Eos # (Auto) Seg Neutrophils % Seg Neuts % (Manual) Lymphocytes % (Manual) Monocytes % (Manual) Seg Neutrophils # Seg Neutrophils # Man Lymphocytes # (Manual) Monocytes # (Manual) PT INR ABG pH POC ABG pCO2 POC ABG pO2 137.5 H ABG pO2 ABG HCO3 ABG O2 Saturation ABG Base Excess ABG Hemoglobin 9.7 L ABG Oxyhemoglobin ABG Sodium 134.1 L ABG Potassium 6.6 H ABG Chloride ABG Glucose 103 H Oxyhemoglobin Sodium Potassium Chloride Carbon Dioxide BUN Creatinine Glucose POC Glucose Lactic Acid Calcium Phosphorus Magnesium Total Bilirubin AST ALT Alkaline Phosphatase Total Protein Albumin Triglycerides Arterial Blood Glucose 103 H Arterial Blood Ionized Calcium 3.8 L Digoxin Crossmatch See Detail 12/23/20 12/23/20 12/24/20 20:35 20:40 01:20 WBC RBC Hgb Hct MCV MCHC RDW Plt Count Lymph % (Auto) [place] % (Auto) Eos % (Auto) Lymph # (Auto) [place] # (Auto) Eos # (Auto) Seg Neutrophils % Seg Neuts % (Manual) Lymphocytes % (Manual) Monocytes % (Manual) Seg Neutrophils # Seg Neutrophils # Man Lymphocytes # (Manual) Monocytes # (Manual) PT INR ABG pH 7.252 L POC ABG pCO2 POC ABG pO2 ABG pO2 50.1 L ABG HCO3 ABG O2 Saturation 81.1 L ABG Base Excess -5.9 L ABG Hemoglobin 12.1 L ABG Oxyhemoglobin ABG Sodium ABG Potassium ABG Chloride ABG Glucose Oxyhemoglobin 78.6 L Sodium 134 L Potassium 6.9 H* D 6.3 H* Chloride Carbon Dioxide 18 L 20 L BUN 87 H 91 H Creatinine 15.3 H 15.3 H Glucose 103 H POC Glucose Lactic Acid Calcium 6.9 L 7.5 L Phosphorus Magnesium Total Bilirubin AST ALT Alkaline Phosphatase Total Protein Albumin Triglycerides Arterial Blood Glucose Arterial Blood Ionized Calcium Digoxin Crossmatch 12/24/20 12/24/20 12/24/20 04:00 10:29 10:29 WBC RBC 3.49 L Hgb 10.5 L Hct 31.2 L MCV MCHC RDW 17.5 H Plt Count 124 L Lymph % (Auto) 3.7 L [place] % (Auto) 9.8 H Eos % (Auto) Lymph # (Auto) 0.2 L [place] # (Auto) Eos # (Auto) Seg Neutrophils % 85.9 H Seg Neuts % (Manual) Lymphocytes % (Manual) Monocytes % (Manual) Seg Neutrophils # Seg Neutrophils # Man Lymphocytes # (Manual) Monocytes # (Manual) PT INR ABG pH POC ABG pCO2 28.1 L POC ABG pO2 ABG pO2 ABG HCO3 ABG O2 Saturation ABG Base Excess ABG Hemoglobin ABG Oxyhemoglobin ABG Sodium 133.9 L ABG Potassium 5.3 H ABG Chloride 108.0 H ABG Glucose Oxyhemoglobin Sodium Potassium 5.6 H Chloride Carbon Dioxide 19 L BUN 99 H Creatinine 16.9 H Glucose 52 L POC Glucose Lactic Acid Calcium 7.6 L Phosphorus Magnesium Total Bilirubin 3.50 H AST 67 H ALT 71 H Alkaline Phosphatase Total Protein 3.5 L D Albumin 2.1 L Triglycerides Arterial Blood Glucose Arterial Blood Ionized Calcium 4.0 L Digoxin Crossmatch 12/25/20 12/25/20 12/25/20 03:33 04:00 04:00 WBC 3.8 L RBC 2.90 L Hgb 8.6 L Hct 25.7 L MCV MCHC RDW 16.7 H Plt Count 113 L Lymph % (Auto) [place] % (Auto) Eos % (Auto) Lymph # (Auto) [place] # (Auto) Eos # (Auto) Seg Neutrophils % Seg Neuts % (Manual) Lymphocytes % (Manual) Monocytes % (Manual) Seg Neutrophils # Seg Neutrophils # Man Lymphocytes # (Manual) Monocytes # (Manual) PT INR ABG pH 7.544 H POC ABG pCO2 28.2 L POC ABG pO2 62.8 L ABG pO2 ABG HCO3 ABG O2 Saturation ABG Base Excess ABG Hemoglobin 9.3 L ABG Oxyhemoglobin 93.0 L ABG Sodium 130.3 L ABG Potassium ABG Chloride ABG Glucose 97 H Oxyhemoglobin Sodium Potassium Chloride Carbon Dioxide BUN 62 H Creatinine 11.4 H Glucose POC Glucose Lactic Acid Calcium 7.7 L Phosphorus 5.00 H Magnesium Total Bilirubin AST ALT Alkaline Phosphatase Total Protein Albumin Triglycerides Arterial Blood Glucose 97 H Arterial Blood Ionized Calcium 3.9 L Digoxin Crossmatch 12/26/20 12/26/20 12/27/20 04:46 Unknown 03:40 WBC 4.1 L RBC 2.61 L Hgb 7.8 L Hct 23.4 L MCV MCHC RDW 17.1 H Plt Count 119 L Lymph % (Auto) 5.3 L [place] % (Auto) 10.6 H Eos % (Auto) Lymph # (Auto) 0.2 L [place] # (Auto) Eos # (Auto) Seg Neutrophils % 78.8 H Seg Neuts % (Manual) Lymphocytes % (Manual) Monocytes % (Manual) Seg Neutrophils # Seg Neutrophils # Man Lymphocytes # (Manual) Monocytes # (Manual) PT INR ABG pH 7.333 L 7.332 L POC ABG pCO2 POC ABG pO2 ABG pO2 ABG HCO3 26.9 H ABG O2 Saturation ABG Base Excess -2.4 L ABG Hemoglobin 6.8 L 7.2 L ABG Oxyhemoglobin ABG Sodium ABG Potassium ABG Chloride ABG Glucose Oxyhemoglobin 93.0 L 93.1 L Sodium Potassium Chloride Carbon Dioxide BUN Creatinine Glucose POC Glucose Lactic Acid Calcium Phosphorus Magnesium Total Bilirubin AST ALT Alkaline Phosphatase Total Protein Albumin Triglycerides Arterial Blood Glucose Arterial Blood Ionized Calcium Digoxin Crossmatch 12/27/20 12/27/20 12/27/20 06:40 06:40 11:22 WBC 4.4 L RBC 2.49 L Hgb 7.4 L Hct 22.4 L MCV MCHC RDW 17.1 H Plt Count 111 L Lymph % (Auto) 6.7 L [place] % (Auto) 12.6 H Eos % (Auto) Lymph # (Auto) 0.3 L [place] # (Auto) Eos # (Auto) Seg Neutrophils % 77.6 H Seg Neuts % (Manual) Lymphocytes % (Manual) Monocytes % (Manual) Seg Neutrophils # Seg Neutrophils # Man Lymphocytes # (Manual) Monocytes # (Manual) PT INR ABG pH POC ABG pCO2 POC ABG pO2 ABG pO2 ABG HCO3 ABG O2 Saturation ABG Base Excess ABG Hemoglobin ABG Oxyhemoglobin ABG Sodium ABG Potassium ABG Chloride ABG Glucose Oxyhemoglobin Sodium Potassium Chloride Carbon Dioxide BUN 64 H Creatinine 9.8 H Glucose 147 H POC Glucose 134 H Lactic Acid Calcium 8.3 L Phosphorus 5.00 H Magnesium Total Bilirubin 3.70 H AST 72 H ALT Alkaline Phosphatase 142 H Total Protein 5.1 L D Albumin 2.9 L Triglycerides Arterial Blood Glucose Arterial Blood Ionized Calcium Digoxin Crossmatch 12/27/20 12/27/20 12/28/20 17:29 23:31 03:09 WBC RBC Hgb Hct MCV MCHC RDW Plt Count Lymph % (Auto) [place] % (Auto) Eos % (Auto) Lymph # (Auto) [place] # (Auto) Eos # (Auto) Seg Neutrophils % Seg Neuts % (Manual) Lymphocytes % (Manual) Monocytes % (Manual) Seg Neutrophils # Seg Neutrophils # Man Lymphocytes # (Manual) Monocytes # (Manual) PT INR ABG pH 7.474 H POC ABG pCO2 POC ABG pO2 ABG pO2 ABG HCO3 ABG O2 Saturation ABG Base Excess ABG Hemoglobin 7.8 L ABG Oxyhemoglobin ABG Sodium ABG Potassium ABG Chloride ABG Glucose Oxyhemoglobin Sodium Potassium Chloride Carbon Dioxide BUN Creatinine Glucose POC Glucose 121 H 131 H Lactic Acid Calcium Phosphorus Magnesium Total Bilirubin AST ALT Alkaline Phosphatase Total Protein Albumin Triglycerides Arterial Blood Glucose Arterial Blood Ionized Calcium Digoxin Crossmatch 12/28/20 12/28/20 12/28/20 05:37 05:40 05:40 WBC 4.3 L RBC 2.40 L Hgb 7.2 L Hct 21.5 L MCV MCHC RDW 17.4 H Plt Count 112 L Lymph % (Auto) 6.5 L [place] % (Auto) 16.7 H Eos % (Auto) Lymph # (Auto) 0.3 L [place] # (Auto) Eos # (Auto) Seg Neutrophils % 71.1 H Seg Neuts % (Manual) Lymphocytes % (Manual) Monocytes % (Manual) Seg Neutrophils # Seg Neutrophils # Man Lymphocytes # (Manual) Monocytes # (Manual) PT INR ABG pH POC ABG pCO2 POC ABG pO2 ABG pO2 ABG HCO3 ABG O2 Saturation ABG Base Excess ABG Hemoglobin ABG Oxyhemoglobin ABG Sodium ABG Potassium ABG Chloride ABG Glucose Oxyhemoglobin Sodium Potassium Chloride Carbon Dioxide BUN 85 H Creatinine 11.5 H Glucose 132 H POC Glucose 121 H Lactic Acid Calcium 8.2 L Phosphorus Magnesium 2.40 H Total Bilirubin 3.80 H AST 70 H ALT Alkaline Phosphatase 176 H Total Protein 5.0 L Albumin 2.9 L Triglycerides Arterial Blood Glucose Arterial Blood Ionized Calcium Digoxin Crossmatch 12/28/20 12/28/20 12/28/20 11:34 15:00 17:35 WBC RBC Hgb Hct MCV MCHC RDW Plt Count Lymph % (Auto) [place] % (Auto) Eos % (Auto) Lymph # (Auto) [place] # (Auto) Eos # (Auto) Seg Neutrophils % Seg Neuts % (Manual) Lymphocytes % (Manual) Monocytes % (Manual) Seg Neutrophils # Seg Neutrophils # Man Lymphocytes # (Manual) Monocytes # (Manual) PT INR ABG pH 7.461 H POC ABG pCO2 POC ABG pO2 72.2 L ABG pO2 ABG HCO3 ABG O2 Saturation ABG Base Excess ABG Hemoglobin 8.2 L ABG Oxyhemoglobin 93.6 L ABG Sodium 134.1 L ABG Potassium 3.2 L ABG Chloride ABG Glucose 135 H Oxyhemoglobin Sodium Potassium Chloride Carbon Dioxide BUN Creatinine Glucose POC Glucose 137 H 144 H Lactic Acid Calcium Phosphorus Magnesium Total Bilirubin AST ALT Alkaline Phosphatase Total Protein Albumin Triglycerides Arterial Blood Glucose 135 H Arterial Blood Ionized Calcium 4.4 L Digoxin Crossmatch 12/28/20 12/28/20 12/29/20 19:44 Unknown 00:21 WBC RBC Hgb Hct MCV MCHC RDW Plt Count Lymph % (Auto) [place] % (Auto) Eos % (Auto) Lymph # (Auto) [place] # (Auto) Eos # (Auto) Seg Neutrophils % Seg Neuts % (Manual) Lymphocytes % (Manual) Monocytes % (Manual) Seg Neutrophils # Seg Neutrophils # Man Lymphocytes # (Manual) Monocytes # (Manual) PT INR ABG pH 7.474 H POC ABG pCO2 POC ABG pO2 ABG pO2 ABG HCO3 ABG O2 Saturation ABG Base Excess ABG Hemoglobin 7.8 L ABG Oxyhemoglobin ABG Sodium 133.2 L ABG Potassium ABG Chloride ABG Glucose 139 H Oxyhemoglobin Sodium 135 L Potassium Chloride 96.6 L Carbon Dioxide BUN 47 H Creatinine 7.4 H Glucose 130 H POC Glucose 142 H Lactic Acid Calcium 8.3 L Phosphorus Magnesium Total Bilirubin AST ALT Alkaline Phosphatase Total Protein Albumin Triglycerides Arterial Blood Glucose 139 H Arterial Blood Ionized Calcium 4.3 L Digoxin Crossmatch 12/29/20 12/29/20 12/29/20 05:16 05:16 05:26 WBC RBC 2.53 L Hgb 7.7 L Hct 22.8 L MCV MCHC RDW 17.0 H Plt Count 130 L Lymph % (Auto) [place] % (Auto) Eos % (Auto) Lymph # (Auto) [place] # (Auto) Eos # (Auto) Seg Neutrophils % Seg Neuts % (Manual) 79.0 H Lymphocytes % (Manual) 9.0 L Monocytes % (Manual) Seg Neutrophils # Seg Neutrophils # Man Lymphocytes # (Manual) 0.6 L Monocytes # (Manual) PT INR ABG pH POC ABG pCO2 POC ABG pO2 ABG pO2 ABG HCO3 ABG O2 Saturation ABG Base Excess ABG Hemoglobin ABG Oxyhemoglobin ABG Sodium ABG Potassium ABG Chloride ABG Glucose Oxyhemoglobin Sodium Potassium 3.4 L Chloride 96.6 L Carbon Dioxide BUN 59 H Creatinine 8.3 H Glucose 127 H POC Glucose 141 H Lactic Acid Calcium 8.2 L Phosphorus Magnesium Total Bilirubin 3.00 H AST 88 H ALT Alkaline Phosphatase 188 H Total Protein 5.1 L Albumin 2.8 L Triglycerides Arterial Blood Glucose Arterial Blood Ionized Calcium Digoxin Crossmatch 12/29/20 12/29/20 12/29/20 11:33 17:29 23:22 WBC RBC Hgb Hct MCV MCHC RDW Plt Count Lymph % (Auto) [place] % (Auto) Eos % (Auto) Lymph # (Auto) [place] # (Auto) Eos # (Auto) Seg Neutrophils % Seg Neuts % (Manual) Lymphocytes % (Manual) Monocytes % (Manual) Seg Neutrophils # Seg Neutrophils # Man Lymphocytes # (Manual) Monocytes # (Manual) PT INR ABG pH POC ABG pCO2 POC ABG pO2 ABG pO2 ABG HCO3 ABG O2 Saturation ABG Base Excess ABG Hemoglobin ABG Oxyhemoglobin ABG Sodium ABG Potassium ABG Chloride ABG Glucose Oxyhemoglobin Sodium Potassium Chloride Carbon Dioxide BUN Creatinine Glucose POC Glucose 144 H 130 H 117 H Lactic Acid Calcium Phosphorus Magnesium Total Bilirubin AST ALT Alkaline Phosphatase Total Protein Albumin Triglycerides Arterial Blood Glucose Arterial Blood Ionized Calcium Digoxin Crossmatch 12/30/20 12/30/20 12/30/20 05:23 08:15 09:00 WBC RBC Hgb Hct MCV MCHC RDW Plt Count Lymph % (Auto) [place] % (Auto) Eos % (Auto) Lymph # (Auto) [place] # (Auto) Eos # (Auto) Seg Neutrophils % Seg Neuts % (Manual) Lymphocytes % (Manual) Monocytes % (Manual) Seg Neutrophils # Seg Neutrophils # Man Lymphocytes # (Manual) Monocytes # (Manual) PT INR ABG pH POC ABG pCO2 POC ABG pO2 ABG pO2 ABG HCO3 ABG O2 Saturation ABG Base Excess ABG Hemoglobin ABG Oxyhemoglobin ABG Sodium ABG Potassium ABG Chloride ABG Glucose Oxyhemoglobin Sodium 135 L Potassium Chloride 95.9 L Carbon Dioxide BUN 85 H Creatinine 10.6 H Glucose 128 H POC Glucose 135 H 127 H Lactic Acid Calcium 8.3 L Phosphorus Magnesium Total Bilirubin 2.40 H AST 85 H ALT Alkaline Phosphatase 216 H Total Protein 5.3 L Albumin 2.6 L Triglycerides 155 H Arterial Blood Glucose Arterial Blood Ionized Calcium Digoxin Crossmatch 12/30/20 12/30/20 12/30/20 09:00 11:53 15:49 WBC RBC 2.61 L Hgb 7.8 L Hct 23.7 L MCV MCHC RDW 17.3 H Plt Count Lymph % (Auto) [place] % (Auto) Eos % (Auto) Lymph # (Auto) [place] # (Auto) Eos # (Auto) Seg Neutrophils % Seg Neuts % (Manual) Lymphocytes % (Manual) Monocytes % (Manual) Seg Neutrophils # Seg Neutrophils # Man Lymphocytes # (Manual) Monocytes # (Manual) PT INR ABG pH POC ABG pCO2 POC ABG pO2 ABG pO2 ABG HCO3 ABG O2 Saturation ABG Base Excess ABG Hemoglobin ABG Oxyhemoglobin ABG Sodium ABG Potassium ABG Chloride ABG Glucose Oxyhemoglobin Sodium Potassium Chloride Carbon Dioxide BUN Creatinine Glucose POC Glucose 155 H 146 H Lactic Acid Calcium Phosphorus Magnesium Total Bilirubin AST ALT Alkaline Phosphatase Total Protein Albumin Triglycerides Arterial Blood Glucose Arterial Blood Ionized Calcium Digoxin Crossmatch 12/30/20 12/30/20 12/31/20 17:53 23:45 03:56 WBC RBC Hgb Hct MCV MCHC RDW Plt Count Lymph % (Auto) [place] % (Auto) Eos % (Auto) Lymph # (Auto) [place] # (Auto) Eos # (Auto) Seg Neutrophils % Seg Neuts % (Manual) Lymphocytes % (Manual) Monocytes % (Manual) Seg Neutrophils # Seg Neutrophils # Man Lymphocytes # (Manual) Monocytes # (Manual) PT INR ABG pH POC ABG pCO2 POC ABG pO2 49.4 L ABG pO2 ABG HCO3 ABG O2 Saturation ABG Base Excess ABG Hemoglobin 10.3 L ABG Oxyhemoglobin 84.2 L ABG Sodium 133.1 L ABG Potassium ABG Chloride ABG Glucose 173 H Oxyhemoglobin Sodium Potassium Chloride Carbon Dioxide BUN Creatinine Glucose POC Glucose 139 H 173 H Lactic Acid Calcium Phosphorus Magnesium Total Bilirubin AST ALT Alkaline Phosphatase Total Protein Albumin Triglycerides Arterial Blood Glucose 173 H Arterial Blood Ionized Calcium Digoxin Crossmatch 12/31/20 12/31/20 12/31/20 05:07 06:51 06:51 WBC 20.3 H RBC 3.32 L Hgb 9.8 L Hct 30.3 L D MCV MCHC RDW 17.3 H Plt Count Lymph % (Auto) [place] % (Auto) Eos % (Auto) Lymph # (Auto) [place] # (Auto) Eos # (Auto) Seg Neutrophils % Seg Neuts % (Manual) 87.0 H Lymphocytes % (Manual) 10.0 L Monocytes % (Manual) Seg Neutrophils # Seg Neutrophils # Man 17.7 H Lymphocytes # (Manual) Monocytes # (Manual) PT INR ABG pH POC ABG pCO2 POC ABG pO2 ABG pO2 ABG HCO3 ABG O2 Saturation ABG Base Excess ABG Hemoglobin ABG Oxyhemoglobin ABG Sodium ABG Potassium ABG Chloride ABG Glucose Oxyhemoglobin Sodium Potassium 5.2 H D Chloride Carbon Dioxide BUN 62 H Creatinine 8.4 H Glucose 116 H POC Glucose 120 H Lactic Acid Calcium Phosphorus Magnesium 1.60 L Total Bilirubin AST ALT Alkaline Phosphatase Total Protein Albumin Triglycerides Arterial Blood Glucose Arterial Blood Ionized Calcium Digoxin Crossmatch 12/31/20 12/31/20 12/31/20 09:38 12:19 12:22 WBC RBC Hgb Hct MCV MCHC RDW Plt Count Lymph % (Auto) [place] % (Auto) Eos % (Auto) Lymph # (Auto) [place] # (Auto) Eos # (Auto) Seg Neutrophils % Seg Neuts % (Manual) Lymphocytes % (Manual) Monocytes % (Manual) Seg Neutrophils # Seg Neutrophils # Man Lymphocytes # (Manual) Monocytes # (Manual) PT INR ABG pH POC ABG pCO2 POC ABG pO2 ABG pO2 354.0 H ABG HCO3 ABG O2 Saturation 99.6 H ABG Base Excess ABG Hemoglobin 9.1 L ABG Oxyhemoglobin ABG Sodium ABG Potassium ABG Chloride ABG Glucose Oxyhemoglobin Sodium Potassium 5.2 H Chloride Carbon Dioxide BUN Creatinine Glucose POC Glucose 132 H Lactic Acid Calcium Phosphorus Magnesium Total Bilirubin AST ALT Alkaline Phosphatase Total Protein Albumin Triglycerides Arterial Blood Glucose Arterial Blood Ionized Calcium Digoxin Crossmatch 12/31/20 01/01/21 01/01/21 23:23 03:03 05:04 WBC RBC Hgb Hct MCV MCHC RDW Plt Count Lymph % (Auto) [place] % (Auto) Eos % (Auto) Lymph # (Auto) [place] # (Auto) Eos # (Auto) Seg Neutrophils % Seg Neuts % (Manual) Lymphocytes % (Manual) Monocytes % (Manual) Seg Neutrophils # Seg Neutrophils # Man Lymphocytes # (Manual) Monocytes # (Manual) PT INR ABG pH POC ABG pCO2 POC ABG pO2 79.6 L ABG pO2 ABG HCO3 ABG O2 Saturation ABG Base Excess ABG Hemoglobin 9.2 L ABG Oxyhemoglobin ABG Sodium 131.6 L ABG Potassium 5.8 H ABG Chloride ABG Glucose 177 H Oxyhemoglobin Sodium Potassium Chloride Carbon Dioxide BUN Creatinine Glucose POC Glucose 174 H 167 H Lactic Acid Calcium Phosphorus Magnesium Total Bilirubin AST ALT Alkaline Phosphatase Total Protein Albumin Triglycerides Arterial Blood Glucose 177 H Arterial Blood Ionized Calcium Digoxin Crossmatch 01/01/21 01/01/21 01/01/21 07:31 07:31 11:31 WBC 26.1 H RBC 2.95 L Hgb 8.6 L Hct 27.1 L MCV MCHC RDW 18.2 H Plt Count Lymph % (Auto) [place] % (Auto) Eos % (Auto) Lymph # (Auto) [place] # (Auto) Eos # (Auto) Seg Neutrophils % Seg Neuts % (Manual) 96.0 H Lymphocytes % (Manual) 4.0 L Monocytes % (Manual) Seg Neutrophils # Seg Neutrophils # Man 25.1 H Lymphocytes # (Manual) 1.0 L Monocytes # (Manual) PT INR ABG pH POC ABG pCO2 POC ABG pO2 ABG pO2 ABG HCO3 ABG O2 Saturation ABG Base Excess ABG Hemoglobin ABG Oxyhemoglobin ABG Sodium ABG Potassium ABG Chloride ABG Glucose Oxyhemoglobin Sodium Potassium 6.0 H Chloride Carbon Dioxide 21 L BUN 89 H Creatinine 10.5 H Glucose 179 H POC Glucose Lactic Acid Calcium Phosphorus Magnesium Total Bilirubin AST ALT Alkaline Phosphatase Total Protein Albumin Triglycerides Arterial Blood Glucose Arterial Blood Ionized Calcium Digoxin Crossmatch See Detail 01/01/21 01/01/21 01/01/21 11:51 12:45 16:52 WBC RBC Hgb Hct MCV MCHC RDW Plt Count Lymph % (Auto) [place] % (Auto) Eos % (Auto) Lymph # (Auto) [place] # (Auto) Eos # (Auto) Seg Neutrophils % Seg Neuts % (Manual) Lymphocytes % (Manual) Monocytes % (Manual) Seg Neutrophils # Seg Neutrophils # Man Lymphocytes # (Manual) Monocytes # (Manual) PT 16.9 H INR 1.39 H ABG pH POC ABG pCO2 POC ABG pO2 ABG pO2 ABG HCO3 ABG O2 Saturation ABG Base Excess ABG Hemoglobin ABG Oxyhemoglobin ABG Sodium ABG Potassium ABG Chloride ABG Glucose Oxyhemoglobin Sodium Potassium Chloride Carbon Dioxide BUN Creatinine Glucose POC Glucose 157 H 177 H Lactic Acid Calcium Phosphorus Magnesium Total Bilirubin AST ALT Alkaline Phosphatase Total Protein Albumin Triglycerides Arterial Blood Glucose Arterial Blood Ionized Calcium Digoxin Crossmatch 01/01/21 01/01/21 01/01/21 17:58 17:58 20:12 WBC 26.9 H RBC 3.14 L Hgb 9.3 L Hct 29.6 L MCV MCHC RDW 17.5 H Plt Count Lymph % (Auto) [place] % (Auto) Eos % (Auto) Lymph # (Auto) [place] # (Auto) Eos # (Auto) Seg Neutrophils % Seg Neuts % (Manual) 84.0 H Lymphocytes % (Manual) 4.0 L Monocytes % (Manual) 12.0 H Seg Neutrophils # Seg Neutrophils # Man 22.6 H Lymphocytes # (Manual) 1.1 L Monocytes # (Manual) 3.2 H PT INR ABG pH POC ABG pCO2 POC ABG pO2 ABG pO2 ABG HCO3 ABG O2 Saturation ABG Base Excess ABG Hemoglobin ABG Oxyhemoglobin ABG Sodium ABG Potassium ABG Chloride ABG Glucose Oxyhemoglobin Sodium 136 L Potassium 6.2 H* Chloride Carbon Dioxide 21 L BUN 92 H Creatinine 10.8 H Glucose 171 H POC Glucose 288 H Lactic Acid Calcium Phosphorus Magnesium Total Bilirubin 2.10 H AST 223 H ALT 100 H Alkaline Phosphatase 206 H Total Protein 4.8 L Albumin 1.9 L Triglycerides Arterial Blood Glucose Arterial Blood Ionized Calcium Digoxin Crossmatch 01/02/21 01/02/21 01/02/21 00:12 00:45 03:05 WBC RBC Hgb Hct MCV MCHC RDW Plt Count Lymph % (Auto) [place] % (Auto) Eos % (Auto) Lymph # (Auto) [place] # (Auto) Eos # (Auto) Seg Neutrophils % Seg Neuts % (Manual) Lymphocytes % (Manual) Monocytes % (Manual) Seg Neutrophils # Seg Neutrophils # Man Lymphocytes # (Manual) Monocytes # (Manual) PT INR ABG pH POC ABG pCO2 POC ABG pO2 81.8 L ABG pO2 ABG HCO3 ABG O2 Saturation ABG Base Excess ABG Hemoglobin 8.0 L ABG Oxyhemoglobin ABG Sodium 129.8 L ABG Potassium 5.4 H ABG Chloride ABG Glucose 257 H Oxyhemoglobin Sodium 136 L Potassium 5.8 H Chloride 96.6 L Carbon Dioxide BUN 95 H Creatinine 11.2 H Glucose 238 H POC Glucose 223 H Lactic Acid Calcium Phosphorus Magnesium Total Bilirubin AST ALT Alkaline Phosphatase Total Protein Albumin Triglycerides Arterial Blood Glucose 257 H Arterial Blood Ionized Calcium 4.0 L Digoxin Crossmatch 01/02/21 01/02/21 01/02/21 06:25 08:00 08:00 WBC 17.5 H RBC 2.31 L Hgb 6.7 L Hct 22.1 L D MCV 96 H MCHC 30 L RDW 18.4 H Plt Count Lymph % (Auto) [place] % (Auto) Eos % (Auto) Lymph # (Auto) [place] # (Auto) Eos # (Auto) Seg Neutrophils % Seg Neuts % (Manual) Lymphocytes % (Manual) Monocytes % (Manual) Seg Neutrophils # Seg Neutrophils # Man Lymphocytes # (Manual) Monocytes # (Manual) PT INR ABG pH POC ABG pCO2 POC ABG pO2 ABG pO2 ABG HCO3 ABG O2 Saturation ABG Base Excess ABG Hemoglobin ABG Oxyhemoglobin ABG Sodium ABG Potassium ABG Chloride ABG Glucose Oxyhemoglobin Sodium 134 L Potassium 5.3 H Chloride 92.9 L Carbon Dioxide BUN 101 H Creatinine 10.9 H Glucose 560 H* POC Glucose 239 H Lactic Acid Calcium 7.6 L Phosphorus 6.50 H Magnesium Total Bilirubin AST ALT Alkaline Phosphatase Total Protein Albumin Triglycerides Arterial Blood Glucose Arterial Blood Ionized Calcium Digoxin Crossmatch 01/02/21 01/02/21 01/02/21 11:26 15:00 17:57 WBC RBC Hgb Hct MCV MCHC RDW Plt Count Lymph % (Auto) [place] % (Auto) Eos % (Auto) Lymph # (Auto) [place] # (Auto) Eos # (Auto) Seg Neutrophils % Seg Neuts % (Manual) Lymphocytes % (Manual) Monocytes % (Manual) Seg Neutrophils # Seg Neutrophils # Man Lymphocytes # (Manual) Monocytes # (Manual) PT INR ABG pH POC ABG pCO2 POC ABG pO2 ABG pO2 ABG HCO3 ABG O2 Saturation ABG Base Excess ABG Hemoglobin ABG Oxyhemoglobin ABG Sodium ABG Potassium ABG Chloride ABG Glucose Oxyhemoglobin Sodium Potassium Chloride Carbon Dioxide BUN Creatinine Glucose 241 H POC Glucose 205 H 272 H Lactic Acid Calcium Phosphorus Magnesium Total Bilirubin AST ALT Alkaline Phosphatase Total Protein Albumin Triglycerides Arterial Blood Glucose Arterial Blood Ionized Calcium Digoxin Crossmatch 01/02/21 01/02/21 01/03/21 23:25 23:43 03:45 WBC RBC Hgb Hct MCV MCHC RDW Plt Count Lymph % (Auto) [place] % (Auto) Eos % (Auto) Lymph # (Auto) [place] # (Auto) Eos # (Auto) Seg Neutrophils % Seg Neuts % (Manual) Lymphocytes % (Manual) Monocytes % (Manual) Seg Neutrophils # Seg Neutrophils # Man Lymphocytes # (Manual) Monocytes # (Manual) PT INR ABG pH POC ABG pCO2 48.3 H POC ABG pO2 134.4 H 79.7 L ABG pO2 ABG HCO3 ABG O2 Saturation ABG Base Excess ABG Hemoglobin 7.7 L 8.6 L ABG Oxyhemoglobin ABG Sodium 131.8 L 130.4 L ABG Potassium ABG Chloride 97.0 L ABG Glucose 218 H 238 H Oxyhemoglobin Sodium Potassium Chloride Carbon Dioxide BUN Creatinine Glucose POC Glucose 218 H Lactic Acid Calcium Phosphorus Magnesium Total Bilirubin AST ALT Alkaline Phosphatase Total Protein Albumin Triglycerides Arterial Blood Glucose 218 H 238 H Arterial Blood Ionized Calcium 4.1 L 4.0 L Digoxin Crossmatch 01/03/21 01/03/21 01/03/21 04:37 04:37 05:39 WBC 15.2 H RBC 2.38 L Hgb 7.3 L Hct 21.6 L MCV MCHC RDW 16.6 H Plt Count Lymph % (Auto) [place] % (Auto) Eos % (Auto) Lymph # (Auto) [place] # (Auto) Eos # (Auto) Seg Neutrophils % Seg Neuts % (Manual) Lymphocytes % (Manual) Monocytes % (Manual) Seg Neutrophils # Seg Neutrophils # Man Lymphocytes # (Manual) Monocytes # (Manual) PT INR ABG pH POC ABG pCO2 POC ABG pO2 ABG pO2 ABG HCO3 ABG O2 Saturation ABG Base Excess ABG Hemoglobin ABG Oxyhemoglobin ABG Sodium ABG Potassium ABG Chloride ABG Glucose Oxyhemoglobin Sodium 136 L Potassium Chloride 94.5 L Carbon Dioxide BUN 69 H Creatinine 8.0 H Glucose 219 H POC Glucose 222 H Lactic Acid Calcium 7.8 L Phosphorus 4.80 H D Magnesium Total Bilirubin AST ALT Alkaline Phosphatase Total Protein Albumin Triglycerides Arterial Blood Glucose Arterial Blood Ionized Calcium Digoxin Crossmatch 01/03/21 01/03/21 01/03/21 11:29 18:49 23:37 WBC RBC Hgb Hct MCV MCHC RDW Plt Count Lymph % (Auto) [place] % (Auto) Eos % (Auto) Lymph # (Auto) [place] # (Auto) Eos # (Auto) Seg Neutrophils % Seg Neuts % (Manual) Lymphocytes % (Manual) Monocytes % (Manual) Seg Neutrophils # Seg Neutrophils # Man Lymphocytes # (Manual) Monocytes # (Manual) PT INR ABG pH POC ABG pCO2 POC ABG pO2 ABG pO2 ABG HCO3 ABG O2 Saturation ABG Base Excess ABG Hemoglobin ABG Oxyhemoglobin ABG Sodium ABG Potassium ABG Chloride ABG Glucose Oxyhemoglobin Sodium Potassium Chloride Carbon Dioxide BUN Creatinine Glucose POC Glucose 232 H 129 H 140 H Lactic Acid Calcium Phosphorus Magnesium Total Bilirubin AST ALT Alkaline Phosphatase Total Protein Albumin Triglycerides Arterial Blood Glucose Arterial Blood Ionized Calcium Digoxin Crossmatch 01/04/21 01/04/21 01/04/21 03:22 04:38 04:38 WBC 11.1 H RBC 2.89 L Hgb 8.9 L Hct 26.2 L MCV MCHC RDW 16.1 H Plt Count Lymph % (Auto) [place] % (Auto) Eos % (Auto) Lymph # (Auto) [place] # (Auto) Eos # (Auto) Seg Neutrophils % Seg Neuts % (Manual) Lymphocytes % (Manual) Monocytes % (Manual) Seg Neutrophils # Seg Neutrophils # Man Lymphocytes # (Manual) Monocytes # (Manual) PT INR ABG pH POC ABG pCO2 POC ABG pO2 82.3 L ABG pO2 ABG HCO3 ABG O2 Saturation ABG Base Excess ABG Hemoglobin 8.9 L ABG Oxyhemoglobin ABG Sodium 130.5 L ABG Potassium ABG Chloride ABG Glucose 124 H Oxyhemoglobin Sodium Potassium Chloride 95.5 L Carbon Dioxide BUN 87 H Creatinine 9.7 H Glucose 118 H POC Glucose Lactic Acid Calcium 7.7 L Phosphorus Magnesium Total Bilirubin AST ALT Alkaline Phosphatase Total Protein Albumin Triglycerides Arterial Blood Glucose 124 H Arterial Blood Ionized Calcium 3.5 L Digoxin Crossmatch 01/04/21 01/04/21 01/04/21 05:39 12:04 18:04 WBC RBC Hgb Hct MCV MCHC RDW Plt Count Lymph % (Auto) [place] % (Auto) Eos % (Auto) Lymph # (Auto) [place] # (Auto) Eos # (Auto) Seg Neutrophils % Seg Neuts % (Manual) Lymphocytes % (Manual) Monocytes % (Manual) Seg Neutrophils # Seg Neutrophils # Man Lymphocytes # (Manual) Monocytes # (Manual) PT INR ABG pH POC ABG pCO2 POC ABG pO2 ABG pO2 ABG HCO3 ABG O2 Saturation ABG Base Excess ABG Hemoglobin ABG Oxyhemoglobin ABG Sodium ABG Potassium ABG Chloride ABG Glucose Oxyhemoglobin Sodium Potassium Chloride Carbon Dioxide BUN Creatinine Glucose POC Glucose 134 H 125 H 131 H Lactic Acid Calcium Phosphorus Magnesium Total Bilirubin AST ALT Alkaline Phosphatase Total Protein Albumin Triglycerides Arterial Blood Glucose Arterial Blood Ionized Calcium Digoxin Crossmatch 01/04/21 01/05/21 01/05/21 23:41 03:23 04:49 WBC RBC Hgb Hct MCV MCHC RDW Plt Count Lymph % (Auto) [place] % (Auto) Eos % (Auto) Lymph # (Auto) [place] # (Auto) Eos # (Auto) Seg Neutrophils % Seg Neuts % (Manual) Lymphocytes % (Manual) Monocytes % (Manual) Seg Neutrophils # Seg Neutrophils # Man Lymphocytes # (Manual) Monocytes # (Manual) PT INR ABG pH POC ABG pCO2 POC ABG pO2 62.8 L ABG pO2 ABG HCO3 ABG O2 Saturation ABG Base Excess ABG Hemoglobin 9.5 L ABG Oxyhemoglobin 92.0 L ABG Sodium 130.1 L ABG Potassium ABG Chloride ABG Glucose 148 H Oxyhemoglobin Sodium Potassium Chloride 96.9 L Carbon Dioxide BUN 57 H Creatinine 6.7 H Glucose 135 H POC Glucose 132 H Lactic Acid Calcium 8.0 L Phosphorus Magnesium Total Bilirubin AST ALT Alkaline Phosphatase Total Protein Albumin Triglycerides Arterial Blood Glucose 148 H Arterial Blood Ionized Calcium 4.1 L Digoxin Crossmatch 01/05/21 01/05/21 01/05/21 05:04 11:48 12:39 WBC RBC 3.03 L Hgb 9.3 L Hct 27.6 L MCV MCHC RDW 16.5 H Plt Count Lymph % (Auto) [place] % (Auto) Eos % (Auto) Lymph # (Auto) [place] # (Auto) Eos # (Auto) Seg Neutrophils % Seg Neuts % (Manual) Lymphocytes % (Manual) Monocytes % (Manual) Seg Neutrophils # Seg Neutrophils # Man Lymphocytes # (Manual) Monocytes # (Manual) PT INR ABG pH POC ABG pCO2 POC ABG pO2 ABG pO2 ABG HCO3 ABG O2 Saturation ABG Base Excess ABG Hemoglobin ABG Oxyhemoglobin ABG Sodium ABG Potassium ABG Chloride ABG Glucose Oxyhemoglobin Sodium Potassium Chloride Carbon Dioxide BUN Creatinine Glucose POC Glucose 147 H 162 H Lactic Acid Calcium Phosphorus Magnesium Total Bilirubin AST ALT Alkaline Phosphatase Total Protein Albumin Triglycerides Arterial Blood Glucose Arterial Blood Ionized Calcium Digoxin Crossmatch 01/05/21 01/05/21 01/06/21 17:50 23:32 04:15 WBC RBC Hgb Hct MCV MCHC RDW Plt Count Lymph % (Auto) [place] % (Auto) Eos % (Auto) Lymph # (Auto) [place] # (Auto) Eos # (Auto) Seg Neutrophils % Seg Neuts % (Manual) Lymphocytes % (Manual) Monocytes % (Manual) Seg Neutrophils # Seg Neutrophils # Man Lymphocytes # (Manual) Monocytes # (Manual) PT INR ABG pH POC ABG pCO2 POC ABG pO2 ABG pO2 191.0 H ABG HCO3 ABG O2 Saturation 99.2 H ABG Base Excess ABG Hemoglobin 9.0 L ABG Oxyhemoglobin ABG Sodium ABG Potassium ABG Chloride ABG Glucose Oxyhemoglobin Sodium Potassium Chloride Carbon Dioxide BUN Creatinine Glucose POC Glucose 155 H 115 H Lactic Acid Calcium Phosphorus Magnesium Total Bilirubin AST ALT Alkaline Phosphatase Total Protein Albumin Triglycerides Arterial Blood Glucose Arterial Blood Ionized Calcium Digoxin Crossmatch 01/06/21 01/06/21 01/06/21 04:45 05:56 07:03 WBC RBC 2.95 L Hgb 9.1 L Hct 26.8 L MCV MCHC RDW 16.8 H Plt Count Lymph % (Auto) [place] % (Auto) Eos % (Auto) Lymph # (Auto) [place] # (Auto) Eos # (Auto) Seg Neutrophils % Seg Neuts % (Manual) Lymphocytes % (Manual) Monocytes % (Manual) Seg Neutrophils # Seg Neutrophils # Man Lymphocytes # (Manual) Monocytes # (Manual) PT INR ABG pH POC ABG pCO2 POC ABG pO2 ABG pO2 ABG HCO3 ABG O2 Saturation ABG Base Excess ABG Hemoglobin ABG Oxyhemoglobin ABG Sodium ABG Potassium ABG Chloride ABG Glucose Oxyhemoglobin Sodium 135 L Potassium Chloride 95.9 L Carbon Dioxide BUN 82 H Creatinine 8.7 H Glucose 127 H POC Glucose 136 H Lactic Acid Calcium 8.3 L Phosphorus Magnesium Total Bilirubin AST ALT Alkaline Phosphatase Total Protein Albumin Triglycerides Arterial Blood Glucose Arterial Blood Ionized Calcium Digoxin Crossmatch 01/06/21 01/06/21 01/06/21 07:10 11:04 13:38 WBC RBC Hgb Hct MCV MCHC RDW Plt Count Lymph % (Auto) [place] % (Auto) Eos % (Auto) Lymph # (Auto) [place] # (Auto) Eos # (Auto) Seg Neutrophils % Seg Neuts % (Manual) Lymphocytes % (Manual) Monocytes % (Manual) Seg Neutrophils # Seg Neutrophils # Man Lymphocytes # (Manual) Monocytes # (Manual) PT INR ABG pH POC ABG pCO2 POC ABG pO2 ABG pO2 ABG HCO3 ABG O2 Saturation ABG Base Excess ABG Hemoglobin ABG Oxyhemoglobin ABG Sodium ABG Potassium ABG Chloride ABG Glucose Oxyhemoglobin Sodium Potassium Chloride Carbon Dioxide BUN Creatinine Glucose POC Glucose 178 H 155 H Lactic Acid Calcium Phosphorus Magnesium Total Bilirubin AST ALT Alkaline Phosphatase Total Protein Albumin Triglycerides Arterial Blood Glucose Arterial Blood Ionized Calcium Digoxin Crossmatch See Detail 01/06/21 01/06/21 01/07/21 17:35 22:21 03:07 WBC RBC Hgb Hct MCV MCHC RDW Plt Count Lymph % (Auto) [place] % (Auto) Eos % (Auto) Lymph # (Auto) [place] # (Auto) Eos # (Auto) Seg Neutrophils % Seg Neuts % (Manual) Lymphocytes % (Manual) Monocytes % (Manual) Seg Neutrophils # Seg Neutrophils # Man Lymphocytes # (Manual) Monocytes # (Manual) PT INR ABG pH POC ABG pCO2 POC ABG pO2 ABG pO2 ABG HCO3 ABG O2 Saturation ABG Base Excess ABG Hemoglobin 11.9 L ABG Oxyhemoglobin ABG Sodium 135.6 L ABG Potassium ABG Chloride ABG Glucose 181 H Oxyhemoglobin Sodium Potassium Chloride Carbon Dioxide BUN Creatinine Glucose POC Glucose 138 H 202 H Lactic Acid Calcium Phosphorus Magnesium Total Bilirubin AST ALT Alkaline Phosphatase Total Protein Albumin Triglycerides Arterial Blood Glucose 181 H Arterial Blood Ionized Calcium 4.3 L Digoxin Crossmatch 01/07/21 01/07/21 01/07/21 04:50 05:21 08:37 WBC 12.4 H RBC Hgb 11.1 L Hct 33.3 L D MCV MCHC RDW 17.0 H Plt Count Lymph % (Auto) 3.2 L [place] % (Auto) 9.4 H Eos % (Auto) Lymph # (Auto) 0.4 L [place] # (Auto) 1.2 H Eos # (Auto) Seg Neutrophils % 86.6 H Seg Neuts % (Manual) Lymphocytes % (Manual) Monocytes % (Manual) Seg Neutrophils # 10.7 H Seg Neutrophils # Man Lymphocytes # (Manual) Monocytes # (Manual) PT INR ABG pH POC ABG pCO2 POC ABG pO2 ABG pO2 ABG HCO3 ABG O2 Saturation ABG Base Excess ABG Hemoglobin ABG Oxyhemoglobin ABG Sodium ABG Potassium ABG Chloride ABG Glucose Oxyhemoglobin Sodium Potassium Chloride Carbon Dioxide BUN 60 H Creatinine 6.3 H Glucose 154 H POC Glucose 177 H Lactic Acid Calcium 8.3 L Phosphorus Magnesium Total Bilirubin AST ALT Alkaline Phosphatase Total Protein Albumin Triglycerides Arterial Blood Glucose Arterial Blood Ionized Calcium Digoxin Crossmatch 01/07/21 01/07/21 01/07/21 11:21 12:19 17:11 WBC RBC Hgb Hct MCV MCHC RDW Plt Count Lymph % (Auto) [place] % (Auto) Eos % (Auto) Lymph # (Auto) [place] # (Auto) Eos # (Auto) Seg Neutrophils % Seg Neuts % (Manual) Lymphocytes % (Manual) Monocytes % (Manual) Seg Neutrophils # Seg Neutrophils # Man Lymphocytes # (Manual) Monocytes # (Manual) PT INR ABG pH POC ABG pCO2 POC ABG pO2 ABG pO2 ABG HCO3 ABG O2 Saturation ABG Base Excess ABG Hemoglobin ABG Oxyhemoglobin ABG Sodium ABG Potassium ABG Chloride ABG Glucose Oxyhemoglobin Sodium Potassium Chloride Carbon Dioxide BUN Creatinine Glucose POC Glucose 144 H 137 H 119 H Lactic Acid Calcium Phosphorus Magnesium Total Bilirubin AST ALT Alkaline Phosphatase Total Protein Albumin Triglycerides Arterial Blood Glucose Arterial Blood Ionized Calcium Digoxin Crossmatch 01/07/21 01/07/21 01/08/21 17:14 23:39 04:34 WBC RBC Hgb Hct MCV MCHC RDW Plt Count Lymph % (Auto) [place] % (Auto) Eos % (Auto) Lymph # (Auto) [place] # (Auto) Eos # (Auto) Seg Neutrophils % Seg Neuts % (Manual) Lymphocytes % (Manual) Monocytes % (Manual) Seg Neutrophils # Seg Neutrophils # Man Lymphocytes # (Manual) Monocytes # (Manual) PT INR ABG pH 7.345 L POC ABG pCO2 POC ABG pO2 ABG pO2 67.4 L ABG HCO3 ABG O2 Saturation 94.3 L ABG Base Excess -3.9 L ABG Hemoglobin 8.9 L ABG Oxyhemoglobin ABG Sodium ABG Potassium ABG Chloride ABG Glucose Oxyhemoglobin 92.3 L Sodium Potassium Chloride Carbon Dioxide 20 L BUN 93 H Creatinine 8.8 H Glucose 120 H POC Glucose 129 H Lactic Acid Calcium Phosphorus Magnesium Total Bilirubin AST ALT Alkaline Phosphatase 133 H Total Protein 5.4 L Albumin 1.9 L Triglycerides Arterial Blood Glucose Arterial Blood Ionized Calcium Digoxin Crossmatch 01/08/21 01/08/21 01/08/21 05:26 11:38 17:19 WBC RBC Hgb Hct MCV MCHC RDW Plt Count Lymph % (Auto) [place] % (Auto) Eos % (Auto) Lymph # (Auto) [place] # (Auto) Eos # (Auto) Seg Neutrophils % Seg Neuts % (Manual) Lymphocytes % (Manual) Monocytes % (Manual) Seg Neutrophils # Seg Neutrophils # Man Lymphocytes # (Manual) Monocytes # (Manual) PT INR ABG pH POC ABG pCO2 POC ABG pO2 ABG pO2 ABG HCO3 ABG O2 Saturation ABG Base Excess ABG Hemoglobin ABG Oxyhemoglobin ABG Sodium ABG Potassium ABG Chloride ABG Glucose Oxyhemoglobin Sodium Potassium Chloride Carbon Dioxide BUN Creatinine Glucose POC Glucose 125 H 146 H 136 H Lactic Acid Calcium Phosphorus Magnesium Total Bilirubin AST ALT Alkaline Phosphatase Total Protein Albumin Triglycerides Arterial Blood Glucose Arterial Blood Ionized Calcium Digoxin Crossmatch 01/08/21 01/09/21 01/09/21 23:52 05:13 05:21 WBC RBC Hgb Hct MCV MCHC RDW Plt Count Lymph % (Auto) [place] % (Auto) Eos % (Auto) Lymph # (Auto) [place] # (Auto) Eos # (Auto) Seg Neutrophils % Seg Neuts % (Manual) Lymphocytes % (Manual) Monocytes % (Manual) Seg Neutrophils # Seg Neutrophils # Man Lymphocytes # (Manual) Monocytes # (Manual) PT INR ABG pH POC ABG pCO2 POC ABG pO2 ABG pO2 ABG HCO3 ABG O2 Saturation ABG Base Excess ABG Hemoglobin ABG Oxyhemoglobin ABG Sodium ABG Potassium ABG Chloride ABG Glucose Oxyhemoglobin Sodium Potassium Chloride Carbon Dioxide 16 L BUN 123 H Creatinine 10.8 H Glucose 145 H POC Glucose 143 H 144 H Lactic Acid Calcium Phosphorus 5.00 H D Magnesium 2.40 H Total Bilirubin AST ALT Alkaline Phosphatase Total Protein Albumin Triglycerides Arterial Blood Glucose Arterial Blood Ionized Calcium Digoxin Crossmatch 01/09/21 01/09/21 01/09/21 12:08 17:20 23:56 WBC RBC Hgb Hct MCV MCHC RDW Plt Count Lymph % (Auto) [place] % (Auto) Eos % (Auto) Lymph # (Auto) [place] # (Auto) Eos # (Auto) Seg Neutrophils % Seg Neuts % (Manual) Lymphocytes % (Manual) Monocytes % (Manual) Seg Neutrophils # Seg Neutrophils # Man Lymphocytes # (Manual) Monocytes # (Manual) PT INR ABG pH POC ABG pCO2 POC ABG pO2 ABG pO2 ABG HCO3 ABG O2 Saturation ABG Base Excess ABG Hemoglobin ABG Oxyhemoglobin ABG Sodium ABG Potassium ABG Chloride ABG Glucose Oxyhemoglobin Sodium Potassium Chloride Carbon Dioxide BUN Creatinine Glucose POC Glucose 153 H 160 H 158 H Lactic Acid Calcium Phosphorus Magnesium Total Bilirubin AST ALT Alkaline Phosphatase Total Protein Albumin Triglycerides Arterial Blood Glucose Arterial Blood Ionized Calcium Digoxin Crossmatch 01/10/21 01/10/21 01/10/21 04:52 05:44 07:41 WBC RBC Hgb Hct MCV MCHC RDW Plt Count Lymph % (Auto) [place] % (Auto) Eos % (Auto) Lymph # (Auto) [place] # (Auto) Eos # (Auto) Seg Neutrophils % Seg Neuts % (Manual) Lymphocytes % (Manual) Monocytes % (Manual) Seg Neutrophils # Seg Neutrophils # Man Lymphocytes # (Manual) Monocytes # (Manual) PT INR ABG pH POC ABG pCO2 POC ABG pO2 ABG pO2 ABG HCO3 ABG O2 Saturation ABG Base Excess ABG Hemoglobin ABG Oxyhemoglobin ABG Sodium ABG Potassium ABG Chloride ABG Glucose Oxyhemoglobin Sodium 135 L Potassium 3.5 L D Chloride 95.0 L Carbon Dioxide 21 L BUN 93 H Creatinine 8.3 H Glucose 127 H POC Glucose 135 H 157 H Lactic Acid Calcium Phosphorus Magnesium Total Bilirubin AST ALT Alkaline Phosphatase Total Protein Albumin Triglycerides Arterial Blood Glucose Arterial Blood Ionized Calcium Digoxin Crossmatch 01/10/21 01/10/21 01/10/21 09:26 12:03 17:44 WBC 18.2 H RBC 3.14 L Hgb 9.7 L Hct 28.2 L MCV MCHC RDW 16.5 H Plt Count Lymph % (Auto) [place] % (Auto) Eos % (Auto) Lymph # (Auto) [place] # (Auto) Eos # (Auto) Seg Neutrophils % Seg Neuts % (Manual) 95.0 H Lymphocytes % (Manual) 3.0 L Monocytes % (Manual) Seg Neutrophils # Seg Neutrophils # Man 17.3 H Lymphocytes # (Manual) 0.5 L Monocytes # (Manual) PT INR ABG pH POC ABG pCO2 POC ABG pO2 ABG pO2 ABG HCO3 ABG O2 Saturation ABG Base Excess ABG Hemoglobin ABG Oxyhemoglobin ABG Sodium ABG Potassium ABG Chloride ABG Glucose Oxyhemoglobin Sodium Potassium Chloride Carbon Dioxide BUN Creatinine Glucose POC Glucose 163 H 171 H Lactic Acid Calcium Phosphorus Magnesium Total Bilirubin AST ALT Alkaline Phosphatase Total Protein Albumin Triglycerides Arterial Blood Glucose Arterial Blood Ionized Calcium Digoxin Crossmatch 01/10/21 01/11/21 01/11/21 23:50 05:18 05:18 WBC RBC Hgb Hct MCV MCHC RDW Plt Count Lymph % (Auto) [place] % (Auto) Eos % (Auto) Lymph # (Auto) [place] # (Auto) Eos # (Auto) Seg Neutrophils % Seg Neuts % (Manual) Lymphocytes % (Manual) Monocytes % (Manual) Seg Neutrophils # Seg Neutrophils # Man Lymphocytes # (Manual) Monocytes # (Manual) PT INR ABG pH POC ABG pCO2 POC ABG pO2 ABG pO2 ABG HCO3 ABG O2 Saturation ABG Base Excess ABG Hemoglobin ABG Oxyhemoglobin ABG Sodium ABG Potassium ABG Chloride ABG Glucose Oxyhemoglobin Sodium 136 L Potassium Chloride 94.6 L Carbon Dioxide 19 L BUN 145 H Creatinine 10.6 H Glucose 152 H POC Glucose 151 H Lactic Acid Calcium Phosphorus 6.00 H D Magnesium Total Bilirubin AST ALT Alkaline Phosphatase Total Protein Albumin Triglycerides Arterial Blood Glucose Arterial Blood Ionized Calcium Digoxin 0.8 L Crossmatch 01/11/21 01/11/21 01/11/21 05:18 05:19 11:28 WBC 17.4 H RBC 3.34 L Hgb 10.2 L Hct 29.7 L MCV MCHC RDW 15.9 H Plt Count Lymph % (Auto) [place] % (Auto) Eos % (Auto) Lymph # (Auto) [place] # (Auto) Eos # (Auto) Seg Neutrophils % Seg Neuts % (Manual) Lymphocytes % (Manual) Monocytes % (Manual) Seg Neutrophils # Seg Neutrophils # Man Lymphocytes # (Manual) Monocytes # (Manual) PT INR ABG pH POC ABG pCO2 POC ABG pO2 ABG pO2 ABG HCO3 ABG O2 Saturation ABG Base Excess ABG Hemoglobin ABG Oxyhemoglobin ABG Sodium ABG Potassium ABG Chloride ABG Glucose Oxyhemoglobin Sodium Potassium Chloride Carbon Dioxide BUN Creatinine Glucose POC Glucose 149 H 178 H Lactic Acid Calcium Phosphorus Magnesium Total Bilirubin AST ALT Alkaline Phosphatase Total Protein Albumin Triglycerides Arterial Blood Glucose Arterial Blood Ionized Calcium Digoxin Crossmatch 01/11/21 01/11/21 01/12/21 17:31 23:14 05:18 WBC RBC Hgb Hct MCV MCHC RDW Plt Count Lymph % (Auto) [place] % (Auto) Eos % (Auto) Lymph # (Auto) [place] # (Auto) Eos # (Auto) Seg Neutrophils % Seg Neuts % (Manual) Lymphocytes % (Manual) Monocytes % (Manual) Seg Neutrophils # Seg Neutrophils # Man Lymphocytes # (Manual) Monocytes # (Manual) PT INR ABG pH POC ABG pCO2 POC ABG pO2 ABG pO2 ABG HCO3 ABG O2 Saturation ABG Base Excess ABG Hemoglobin ABG Oxyhemoglobin ABG Sodium ABG Potassium ABG Chloride ABG Glucose Oxyhemoglobin Sodium Potassium Chloride Carbon Dioxide BUN Creatinine Glucose POC Glucose 158 H 145 H 148 H Lactic Acid Calcium Phosphorus Magnesium Total Bilirubin AST ALT Alkaline Phosphatase Total Protein Albumin Triglycerides Arterial Blood Glucose Arterial Blood Ionized Calcium Digoxin Crossmatch 01/12/21 01/12/21 01/12/21 06:50 10:45 13:34 WBC RBC Hgb Hct MCV MCHC RDW Plt Count Lymph % (Auto) [place] % (Auto) Eos % (Auto) Lymph # (Auto) [place] # (Auto) Eos # (Auto) Seg Neutrophils % Seg Neuts % (Manual) Lymphocytes % (Manual) Monocytes % (Manual) Seg Neutrophils # Seg Neutrophils # Man Lymphocytes # (Manual) Monocytes # (Manual) PT INR ABG pH POC ABG pCO2 POC ABG pO2 ABG pO2 ABG HCO3 ABG O2 Saturation ABG Base Excess ABG Hemoglobin ABG Oxyhemoglobin ABG Sodium ABG Potassium ABG Chloride ABG Glucose Oxyhemoglobin Sodium Potassium 2.9 L* D Chloride 94.8 L Carbon Dioxide BUN 102 H Creatinine 8.3 H Glucose 139 H POC Glucose 151 H 134 H Lactic Acid Calcium 8.1 L Phosphorus 5.00 H Magnesium Total Bilirubin AST ALT Alkaline Phosphatase Total Protein Albumin Triglycerides Arterial Blood Glucose Arterial Blood Ionized Calcium Digoxin Crossmatch 01/12/21 01/12/21 01/13/21 16:59 23:06 03:45 WBC RBC Hgb Hct MCV MCHC RDW Plt Count Lymph % (Auto) [place] % (Auto) Eos % (Auto) Lymph # (Auto) [place] # (Auto) Eos # (Auto) Seg Neutrophils % Seg Neuts % (Manual) Lymphocytes % (Manual) Monocytes % (Manual) Seg Neutrophils # Seg Neutrophils # Man Lymphocytes # (Manual) Monocytes # (Manual) PT INR ABG pH POC ABG pCO2 POC ABG pO2 ABG pO2 ABG HCO3 ABG O2 Saturation ABG Base Excess ABG Hemoglobin ABG Oxyhemoglobin ABG Sodium ABG Potassium ABG Chloride ABG Glucose Oxyhemoglobin Sodium 136 L Potassium 3.4 L Chloride 92.6 L Carbon Dioxide BUN 134 H Creatinine 10.4 H Glucose 126 H POC Glucose 108 H 135 H Lactic Acid Calcium 8.3 L Phosphorus 5.60 H Magnesium 1.50 L Total Bilirubin AST ALT Alkaline Phosphatase Total Protein Albumin Triglycerides Arterial Blood Glucose Arterial Blood Ionized Calcium Digoxin Crossmatch 01/13/21 01/13/21 01/13/21 03:45 05:55 11:59 WBC 17.6 H RBC 3.33 L Hgb 10.2 L Hct 29.5 L MCV MCHC 35 H RDW 15.5 H Plt Count Lymph % (Auto) 4.4 L [place] % (Auto) 10.3 H Eos % (Auto) Lymph # (Auto) 0.8 L [place] # (Auto) 1.8 H Eos # (Auto) Seg Neutrophils % 84.2 H Seg Neuts % (Manual) Lymphocytes % (Manual) Monocytes % (Manual) Seg Neutrophils # 14.8 H Seg Neutrophils # Man Lymphocytes # (Manual) Monocytes # (Manual) PT INR ABG pH POC ABG pCO2 POC ABG pO2 ABG pO2 ABG HCO3 ABG O2 Saturation ABG Base Excess ABG Hemoglobin ABG Oxyhemoglobin ABG Sodium ABG Potassium ABG Chloride ABG Glucose Oxyhemoglobin Sodium Potassium Chloride Carbon Dioxide BUN Creatinine Glucose POC Glucose 134 H 141 H Lactic Acid Calcium Phosphorus Magnesium Total Bilirubin AST ALT Alkaline Phosphatase Total Protein Albumin Triglycerides Arterial Blood Glucose Arterial Blood Ionized Calcium Digoxin Crossmatch 01/13/21 01/14/21 01/14/21 23:09 05:39 05:57 WBC RBC Hgb Hct MCV MCHC RDW Plt Count Lymph % (Auto) [place] % (Auto) Eos % (Auto) Lymph # (Auto) [place] # (Auto) Eos # (Auto) Seg Neutrophils % Seg Neuts % (Manual) Lymphocytes % (Manual) Monocytes % (Manual) Seg Neutrophils # Seg Neutrophils # Man Lymphocytes # (Manual) Monocytes # (Manual) PT INR ABG pH POC ABG pCO2 POC ABG pO2 ABG pO2 ABG HCO3 ABG O2 Saturation ABG Base Excess ABG Hemoglobin ABG Oxyhemoglobin ABG Sodium ABG Potassium ABG Chloride ABG Glucose Oxyhemoglobin Sodium Potassium Chloride 97.6 L Carbon Dioxide BUN 81 H Creatinine 7.6 H Glucose 193 H POC Glucose 106 H 190 H Lactic Acid Calcium 8.2 L Phosphorus 4.60 H Magnesium Total Bilirubin AST ALT Alkaline Phosphatase Total Protein Albumin Triglycerides Arterial Blood Glucose Arterial Blood Ionized Calcium Digoxin Crossmatch 01/14/21 01/14/21 01/14/21 10:00 16:56 16:59 WBC 17.0 H RBC 3.10 L Hgb 9.6 L Hct 27.4 L MCV MCHC 35 H RDW 15.6 H Plt Count Lymph % (Auto) [place] % (Auto) Eos % (Auto) Lymph # (Auto) [place] # (Auto) Eos # (Auto) Seg Neutrophils % Seg Neuts % (Manual) Lymphocytes % (Manual) Monocytes % (Manual) Seg Neutrophils # Seg Neutrophils # Man Lymphocytes # (Manual) Monocytes # (Manual) PT INR ABG pH POC ABG pCO2 POC ABG pO2 ABG pO2 ABG HCO3 ABG O2 Saturation ABG Base Excess ABG Hemoglobin ABG Oxyhemoglobin ABG Sodium ABG Potassium ABG Chloride ABG Glucose Oxyhemoglobin Sodium Potassium Chloride Carbon Dioxide BUN Creatinine Glucose POC Glucose 37 L 34 L Lactic Acid Calcium Phosphorus Magnesium Total Bilirubin AST ALT Alkaline Phosphatase Total Protein Albumin Triglycerides Arterial Blood Glucose Arterial Blood Ionized Calcium Digoxin Crossmatch 01/14/21 01/14/21 01/14/21 17:02 18:34 23:17 WBC RBC Hgb Hct MCV MCHC RDW Plt Count Lymph % (Auto) [place] % (Auto) Eos % (Auto) Lymph # (Auto) [place] # (Auto) Eos # (Auto) Seg Neutrophils % Seg Neuts % (Manual) Lymphocytes % (Manual) Monocytes % (Manual) Seg Neutrophils # Seg Neutrophils # Man Lymphocytes # (Manual) Monocytes # (Manual) PT INR ABG pH POC ABG pCO2 POC ABG pO2 ABG pO2 ABG HCO3 ABG O2 Saturation ABG Base Excess ABG Hemoglobin ABG Oxyhemoglobin ABG Sodium ABG Potassium ABG Chloride ABG Glucose Oxyhemoglobin Sodium Potassium Chloride Carbon Dioxide BUN Creatinine Glucose POC Glucose 35 L 143 H 53 L Lactic Acid Calcium Phosphorus Magnesium Total Bilirubin AST ALT Alkaline Phosphatase Total Protein Albumin Triglycerides Arterial Blood Glucose Arterial Blood Ionized Calcium Digoxin Crossmatch 01/15/21 01/15/21 01/15/21 00:34 04:00 04:00 WBC 15.9 H RBC 3.02 L Hgb 9.3 L Hct 27.3 L MCV MCHC RDW 15.6 H Plt Count Lymph % (Auto) [place] % (Auto) Eos % (Auto) Lymph # (Auto) [place] # (Auto) Eos # (Auto) Seg Neutrophils % Seg Neuts % (Manual) Lymphocytes % (Manual) Monocytes % (Manual) Seg Neutrophils # Seg Neutrophils # Man Lymphocytes # (Manual) Monocytes # (Manual) PT INR ABG pH POC ABG pCO2 POC ABG pO2 ABG pO2 ABG HCO3 ABG O2 Saturation ABG Base Excess ABG Hemoglobin ABG Oxyhemoglobin ABG Sodium ABG Potassium ABG Chloride ABG Glucose Oxyhemoglobin Sodium 136 L Potassium Chloride 94.3 L Carbon Dioxide BUN 117 H Creatinine 9.9 H Glucose 217 H POC Glucose 181 H Lactic Acid Calcium 8.3 L Phosphorus Magnesium Total Bilirubin AST ALT Alkaline Phosphatase Total Protein Albumin Triglycerides Arterial Blood Glucose Arterial Blood Ionized Calcium Digoxin Crossmatch 01/15/21 01/15/21 01/15/21 05:29 11:51 23:13 WBC RBC Hgb Hct MCV MCHC RDW Plt Count Lymph % (Auto) [place] % (Auto) Eos % (Auto) Lymph # (Auto) [place] # (Auto) Eos # (Auto) Seg Neutrophils % Seg Neuts % (Manual) Lymphocytes % (Manual) Monocytes % (Manual) Seg Neutrophils # Seg Neutrophils # Man Lymphocytes # (Manual) Monocytes # (Manual) PT INR ABG pH POC ABG pCO2 POC ABG pO2 ABG pO2 ABG HCO3 ABG O2 Saturation ABG Base Excess ABG Hemoglobin ABG Oxyhemoglobin ABG Sodium ABG Potassium ABG Chloride ABG Glucose Oxyhemoglobin Sodium Potassium Chloride Carbon Dioxide BUN Creatinine Glucose POC Glucose 221 H 62 L 154 H Lactic Acid Calcium Phosphorus Magnesium Total Bilirubin AST ALT Alkaline Phosphatase Total Protein Albumin Triglycerides Arterial Blood Glucose Arterial Blood Ionized Calcium Digoxin Crossmatch 01/16/21 01/16/21 01/16/21 05:04 06:44 06:44 WBC 14.8 H RBC 2.76 L Hgb 8.2 L Hct 24.8 L MCV MCHC RDW 15.6 H Plt Count Lymph % (Auto) [place] % (Auto) Eos % (Auto) Lymph # (Auto) [place] # (Auto) Eos # (Auto) Seg Neutrophils % Seg Neuts % (Manual) Lymphocytes % (Manual) Monocytes % (Manual) Seg Neutrophils # Seg Neutrophils # Man Lymphocytes # (Manual) Monocytes # (Manual) PT INR ABG pH POC ABG pCO2 POC ABG pO2 ABG pO2 ABG HCO3 ABG O2 Saturation ABG Base Excess ABG Hemoglobin ABG Oxyhemoglobin ABG Sodium ABG Potassium ABG Chloride ABG Glucose Oxyhemoglobin Sodium 133 L Potassium Chloride 92.3 L Carbon Dioxide 20 L BUN 160 H Creatinine 12.1 H Glucose 177 H POC Glucose 168 H Lactic Acid Calcium 8.1 L Phosphorus 5.50 H Magnesium 2.50 H Total Bilirubin AST ALT Alkaline Phosphatase Total Protein Albumin Triglycerides Arterial Blood Glucose Arterial Blood Ionized Calcium Digoxin Crossmatch 01/16/21 01/17/21 01/17/21 23:20 05:14 05:14 WBC 12.7 H RBC 2.75 L Hgb 8.5 L Hct 24.6 L MCV MCHC 35 H RDW 15.4 H Plt Count Lymph % (Auto) [place] % (Auto) Eos % (Auto) Lymph # (Auto) [place] # (Auto) Eos # (Auto) Seg Neutrophils % Seg Neuts % (Manual) Lymphocytes % (Manual) Monocytes % (Manual) Seg Neutrophils # Seg Neutrophils # Man Lymphocytes # (Manual) Monocytes # (Manual) PT INR ABG pH POC ABG pCO2 POC ABG pO2 ABG pO2 ABG HCO3 ABG O2 Saturation ABG Base Excess ABG Hemoglobin ABG Oxyhemoglobin ABG Sodium ABG Potassium ABG Chloride ABG Glucose Oxyhemoglobin Sodium Potassium Chloride 97.9 L Carbon Dioxide BUN 84 H Creatinine 7.8 H Glucose 176 H POC Glucose 153 H Lactic Acid Calcium 8.0 L Phosphorus Magnesium Total Bilirubin AST ALT Alkaline Phosphatase Total Protein Albumin Triglycerides Arterial Blood Glucose Arterial Blood Ionized Calcium Digoxin Crossmatch 01/17/21 01/17/21 01/18/21 05:33 11:58 00:07 WBC RBC Hgb Hct MCV MCHC RDW Plt Count Lymph % (Auto) [place] % (Auto) Eos % (Auto) Lymph # (Auto) [place] # (Auto) Eos # (Auto) Seg Neutrophils % Seg Neuts % (Manual) Lymphocytes % (Manual) Monocytes % (Manual) Seg Neutrophils # Seg Neutrophils # Man Lymphocytes # (Manual) Monocytes # (Manual) PT INR ABG pH POC ABG pCO2 POC ABG pO2 ABG pO2 ABG HCO3 ABG O2 Saturation ABG Base Excess ABG Hemoglobin ABG Oxyhemoglobin ABG Sodium ABG Potassium ABG Chloride ABG Glucose Oxyhemoglobin Sodium Potassium Chloride Carbon Dioxide BUN Creatinine Glucose POC Glucose 162 H 64 L 146 H Lactic Acid Calcium Phosphorus Magnesium Total Bilirubin AST ALT Alkaline Phosphatase Total Protein Albumin Triglycerides Arterial Blood Glucose Arterial Blood Ionized Calcium Digoxin Crossmatch 01/18/21 01/18/21 01/18/21 04:19 04:19 06:15 WBC 15.6 H RBC 3.00 L Hgb 9.2 L Hct 26.8 L MCV MCHC 35 H RDW 15.6 H Plt Count Lymph % (Auto) [place] % (Auto) Eos % (Auto) Lymph # (Auto) [place] # (Auto) Eos # (Auto) Seg Neutrophils % Seg Neuts % (Manual) Lymphocytes % (Manual) Monocytes % (Manual) Seg Neutrophils # Seg Neutrophils # Man Lymphocytes # (Manual) Monocytes # (Manual) PT INR ABG pH POC ABG pCO2 POC ABG pO2 ABG pO2 ABG HCO3 ABG O2 Saturation ABG Base Excess ABG Hemoglobin ABG Oxyhemoglobin ABG Sodium ABG Potassium ABG Chloride ABG Glucose Oxyhemoglobin Sodium Potassium Chloride 96.2 L Carbon Dioxide BUN 117 H Creatinine 10.0 H Glucose 165 H POC Glucose 189 H Lactic Acid Calcium Phosphorus 4.70 H D Magnesium Total Bilirubin AST ALT Alkaline Phosphatase Total Protein Albumin Triglycerides Arterial Blood Glucose Arterial Blood Ionized Calcium Digoxin Crossmatch 01/18/21 01/18/21 01/18/21 11:53 13:44 15:08 WBC RBC Hgb Hct MCV MCHC RDW Plt Count Lymph % (Auto) [place] % (Auto) Eos % (Auto) Lymph # (Auto) [place] # (Auto) Eos # (Auto) Seg Neutrophils % Seg Neuts % (Manual) Lymphocytes % (Manual) Monocytes % (Manual) Seg Neutrophils # Seg Neutrophils # Man Lymphocytes # (Manual) Monocytes # (Manual) PT INR ABG pH POC ABG pCO2 POC ABG pO2 ABG pO2 ABG HCO3 ABG O2 Saturation ABG Base Excess ABG Hemoglobin ABG Oxyhemoglobin ABG Sodium ABG Potassium ABG Chloride ABG Glucose Oxyhemoglobin Sodium Potassium Chloride Carbon Dioxide BUN Creatinine Glucose POC Glucose 69 L 50 L 56 L Lactic Acid Calcium Phosphorus Magnesium Total Bilirubin AST ALT Alkaline Phosphatase Total Protein Albumin Triglycerides Arterial Blood Glucose Arterial Blood Ionized Calcium Digoxin Crossmatch 01/18/21 01/19/21 01/19/21 17:50 04:55 08:56 WBC 12.7 H RBC 2.89 L Hgb 8.7 L Hct 25.6 L MCV MCHC RDW 15.5 H Plt Count Lymph % (Auto) [place] % (Auto) Eos % (Auto) Lymph # (Auto) [place] # (Auto) Eos # (Auto) Seg Neutrophils % Seg Neuts % (Manual) Lymphocytes % (Manual) Monocytes % (Manual) Seg Neutrophils # Seg Neutrophils # Man Lymphocytes # (Manual) Monocytes # (Manual) PT INR ABG pH POC ABG pCO2 POC ABG pO2 ABG pO2 ABG HCO3 ABG O2 Saturation ABG Base Excess ABG Hemoglobin ABG Oxyhemoglobin ABG Sodium ABG Potassium ABG Chloride ABG Glucose Oxyhemoglobin Sodium Potassium Chloride Carbon Dioxide BUN Creatinine Glucose POC Glucose 137 H 120 H Lactic Acid Calcium Phosphorus Magnesium Total Bilirubin AST ALT Alkaline Phosphatase Total Protein Albumin Triglycerides Arterial Blood Glucose Arterial Blood Ionized Calcium Digoxin Crossmatch 01/19/21 01/19/21 01/19/21 08:56 11:33 17:32 WBC RBC Hgb Hct MCV MCHC RDW Plt Count Lymph % (Auto) [place] % (Auto) Eos % (Auto) Lymph # (Auto) [place] # (Auto) Eos # (Auto) Seg Neutrophils % Seg Neuts % (Manual) Lymphocytes % (Manual) Monocytes % (Manual) Seg Neutrophils # Seg Neutrophils # Man Lymphocytes # (Manual) Monocytes # (Manual) PT INR ABG pH POC ABG pCO2 POC ABG pO2 ABG pO2 ABG HCO3 ABG O2 Saturation ABG Base Excess ABG Hemoglobin ABG Oxyhemoglobin ABG Sodium ABG Potassium ABG Chloride ABG Glucose Oxyhemoglobin Sodium Potassium Chloride Carbon Dioxide BUN 66 H Creatinine 7.7 H Glucose 119 H POC Glucose 160 H 125 H Lactic Acid Calcium 8.3 L Phosphorus Magnesium Total Bilirubin AST ALT Alkaline Phosphatase Total Protein Albumin Triglycerides Arterial Blood Glucose Arterial Blood Ionized Calcium Digoxin Crossmatch 01/19/21 01/20/21 01/20/21 23:30 03:35 03:35 WBC 12.0 H RBC 2.62 L Hgb 8.3 L Hct 23.2 L MCV MCHC 36 H RDW Plt Count Lymph % (Auto) [place] % (Auto) Eos % (Auto) Lymph # (Auto) [place] # (Auto) Eos # (Auto) Seg Neutrophils % Seg Neuts % (Manual) Lymphocytes % (Manual) Monocytes % (Manual) Seg Neutrophils # Seg Neutrophils # Man Lymphocytes # (Manual) Monocytes # (Manual) PT INR ABG pH POC ABG pCO2 POC ABG pO2 ABG pO2 ABG HCO3 ABG O2 Saturation ABG Base Excess ABG Hemoglobin ABG Oxyhemoglobin ABG Sodium ABG Potassium ABG Chloride ABG Glucose Oxyhemoglobin Sodium Potassium Chloride Carbon Dioxide BUN 46 H Creatinine 5.9 H Glucose 128 H POC Glucose 127 H Lactic Acid Calcium Phosphorus Magnesium Total Bilirubin AST ALT Alkaline Phosphatase Total Protein Albumin Triglycerides Arterial Blood Glucose Arterial Blood Ionized Calcium Digoxin Crossmatch 01/20/21 01/20/21 01/20/21 06:19 11:55 18:00 WBC RBC Hgb Hct MCV MCHC RDW Plt Count Lymph % (Auto) [place] % (Auto) Eos % (Auto) Lymph # (Auto) [place] # (Auto) Eos # (Auto) Seg Neutrophils % Seg Neuts % (Manual) Lymphocytes % (Manual) Monocytes % (Manual) Seg Neutrophils # Seg Neutrophils # Man Lymphocytes # (Manual) Monocytes # (Manual) PT INR ABG pH POC ABG pCO2 POC ABG pO2 ABG pO2 ABG HCO3 ABG O2 Saturation ABG Base Excess ABG Hemoglobin ABG Oxyhemoglobin ABG Sodium ABG Potassium ABG Chloride ABG Glucose Oxyhemoglobin Sodium Potassium Chloride Carbon Dioxide BUN Creatinine Glucose POC Glucose 119 H 128 H 115 H Lactic Acid Calcium Phosphorus Magnesium Total Bilirubin AST ALT Alkaline Phosphatase Total Protein Albumin Triglycerides Arterial Blood Glucose Arterial Blood Ionized Calcium Digoxin Crossmatch 01/20/21 01/21/21 01/21/21 23:26 04:39 05:27 WBC RBC Hgb Hct MCV MCHC RDW Plt Count Lymph % (Auto) [place] % (Auto) Eos % (Auto) Lymph # (Auto) [place] # (Auto) Eos # (Auto) Seg Neutrophils % Seg Neuts % (Manual) Lymphocytes % (Manual) Monocytes % (Manual) Seg Neutrophils # Seg Neutrophils # Man Lymphocytes # (Manual) Monocytes # (Manual) PT INR ABG pH POC ABG pCO2 POC ABG pO2 ABG pO2 ABG HCO3 ABG O2 Saturation ABG Base Excess ABG Hemoglobin ABG Oxyhemoglobin ABG Sodium ABG Potassium ABG Chloride ABG Glucose Oxyhemoglobin Sodium Potassium Chloride Carbon Dioxide BUN 37 H Creatinine 5.3 H Glucose 109 H POC Glucose 108 H 107 H Lactic Acid Calcium Phosphorus 2.10 L Magnesium 1.50 L Total Bilirubin AST ALT Alkaline Phosphatase 143 H Total Protein 6.1 L Albumin 3.0 L Triglycerides Arterial Blood Glucose Arterial Blood Ionized Calcium Digoxin Crossmatch 01/21/21 01/21/21 01/22/21 11:35 17:53 00:20 WBC RBC Hgb Hct MCV MCHC RDW Plt Count Lymph % (Auto) [place] % (Auto) Eos % (Auto) Lymph # (Auto) [place] # (Auto) Eos # (Auto) Seg Neutrophils % Seg Neuts % (Manual) Lymphocytes % (Manual) Monocytes % (Manual) Seg Neutrophils # Seg Neutrophils # Man Lymphocytes # (Manual) Monocytes # (Manual) PT INR ABG pH POC ABG pCO2 POC ABG pO2 ABG pO2 ABG HCO3 ABG O2 Saturation ABG Base Excess ABG Hemoglobin ABG Oxyhemoglobin ABG Sodium ABG Potassium ABG Chloride ABG Glucose Oxyhemoglobin Sodium Potassium Chloride Carbon Dioxide BUN Creatinine Glucose POC Glucose 133 H 124 H 122 H Lactic Acid Calcium Phosphorus Magnesium Total Bilirubin AST ALT Alkaline Phosphatase Total Protein Albumin Triglycerides Arterial Blood Glucose Arterial Blood Ionized Calcium Digoxin Crossmatch 01/22/21 01/22/21 01/22/21 04:00 06:09 11:36 WBC RBC Hgb Hct MCV MCHC RDW Plt Count Lymph % (Auto) [place] % (Auto) Eos % (Auto) Lymph # (Auto) [place] # (Auto) Eos # (Auto) Seg Neutrophils % Seg Neuts % (Manual) Lymphocytes % (Manual) Monocytes % (Manual) Seg Neutrophils # Seg Neutrophils # Man Lymphocytes # (Manual) Monocytes # (Manual) PT INR ABG pH POC ABG pCO2 POC ABG pO2 ABG pO2 ABG HCO3 ABG O2 Saturation ABG Base Excess ABG Hemoglobin ABG Oxyhemoglobin ABG Sodium ABG Potassium ABG Chloride ABG Glucose Oxyhemoglobin Sodium Potassium Chloride Carbon Dioxide BUN 65 H Creatinine 8.2 H D Glucose 111 H POC Glucose 122 H 132 H Lactic Acid Calcium Phosphorus Magnesium Total Bilirubin AST ALT Alkaline Phosphatase Total Protein Albumin Triglycerides Arterial Blood Glucose Arterial Blood Ionized Calcium Digoxin Crossmatch 01/22/21 01/22/21 01/23/21 17:17 23:18 05:29 WBC RBC Hgb Hct MCV MCHC RDW Plt Count Lymph % (Auto) [place] % (Auto) Eos % (Auto) Lymph # (Auto) [place] # (Auto) Eos # (Auto) Seg Neutrophils % Seg Neuts % (Manual) Lymphocytes % (Manual) Monocytes % (Manual) Seg Neutrophils # Seg Neutrophils # Man Lymphocytes # (Manual) Monocytes # (Manual) PT INR ABG pH POC ABG pCO2 POC ABG pO2 ABG pO2 ABG HCO3 ABG O2 Saturation ABG Base Excess ABG Hemoglobin ABG Oxyhemoglobin ABG Sodium ABG Potassium ABG Chloride ABG Glucose Oxyhemoglobin Sodium Potassium Chloride Carbon Dioxide BUN Creatinine Glucose POC Glucose 135 H 128 H 129 H Lactic Acid Calcium Phosphorus Magnesium Total Bilirubin AST ALT Alkaline Phosphatase Total Protein Albumin Triglycerides Arterial Blood Glucose Arterial Blood Ionized Calcium Digoxin Crossmatch 01/23/21 01/23/21 01/23/21 05:45 11:28 16:39 WBC RBC Hgb Hct MCV MCHC RDW Plt Count Lymph % (Auto) [place] % (Auto) Eos % (Auto) Lymph # (Auto) [place] # (Auto) Eos # (Auto) Seg Neutrophils % Seg Neuts % (Manual) Lymphocytes % (Manual) Monocytes % (Manual) Seg Neutrophils # Seg Neutrophils # Man Lymphocytes # (Manual) Monocytes # (Manual) PT INR ABG pH POC ABG pCO2 POC ABG pO2 ABG pO2 ABG HCO3 ABG O2 Saturation ABG Base Excess ABG Hemoglobin ABG Oxyhemoglobin ABG Sodium ABG Potassium ABG Chloride ABG Glucose Oxyhemoglobin Sodium Potassium Chloride Carbon Dioxide BUN 96 H Creatinine 10.8 H Glucose 124 H POC Glucose 160 H 116 H Lactic Acid Calcium Phosphorus Magnesium 2.50 H Total Bilirubin AST ALT Alkaline Phosphatase Total Protein Albumin Triglycerides Arterial Blood Glucose Arterial Blood Ionized Calcium Digoxin Crossmatch 01/24/21 01/24/21 01/24/21 00:02 04:45 05:01 WBC RBC Hgb Hct MCV MCHC RDW Plt Count Lymph % (Auto) [place] % (Auto) Eos % (Auto) Lymph # (Auto) [place] # (Auto) Eos # (Auto) Seg Neutrophils % Seg Neuts % (Manual) Lymphocytes % (Manual) Monocytes % (Manual) Seg Neutrophils # Seg Neutrophils # Man Lymphocytes # (Manual) Monocytes # (Manual) PT INR ABG pH POC ABG pCO2 POC ABG pO2 ABG pO2 ABG HCO3 ABG O2 Saturation ABG Base Excess ABG Hemoglobin ABG Oxyhemoglobin ABG Sodium ABG Potassium ABG Chloride ABG Glucose Oxyhemoglobin Sodium Potassium 3.5 L Chloride Carbon Dioxide BUN 56 H Creatinine 7.7 H Glucose 102 H POC Glucose 120 H 108 H Lactic Acid Calcium Phosphorus Magnesium Total Bilirubin AST ALT Alkaline Phosphatase Total Protein Albumin Triglycerides Arterial Blood Glucose Arterial Blood Ionized Calcium Digoxin Crossmatch 01/24/21 01/24/21 01/24/21 12:03 17:07 23:55 WBC RBC Hgb Hct MCV MCHC RDW Plt Count Lymph % (Auto) [place] % (Auto) Eos % (Auto) Lymph # (Auto) [place] # (Auto) Eos # (Auto) Seg Neutrophils % Seg Neuts % (Manual) Lymphocytes % (Manual) Monocytes % (Manual) Seg Neutrophils # Seg Neutrophils # Man Lymphocytes # (Manual) Monocytes # (Manual) PT INR ABG pH POC ABG pCO2 POC ABG pO2 ABG pO2 ABG HCO3 ABG O2 Saturation ABG Base Excess ABG Hemoglobin ABG Oxyhemoglobin ABG Sodium ABG Potassium ABG Chloride ABG Glucose Oxyhemoglobin Sodium Potassium Chloride Carbon Dioxide BUN Creatinine Glucose POC Glucose 136 H 122 H 112 H Lactic Acid Calcium Phosphorus Magnesium Total Bilirubin AST ALT Alkaline Phosphatase Total Protein Albumin Triglycerides Arterial Blood Glucose Arterial Blood Ionized Calcium Digoxin Crossmatch 01/25/21 01/25/21 01/25/21 05:15 06:00 07:47 WBC RBC Hgb Hct MCV MCHC RDW Plt Count Lymph % (Auto) [place] % (Auto) Eos % (Auto) Lymph # (Auto) [place] # (Auto) Eos # (Auto) Seg Neutrophils % Seg Neuts % (Manual) Lymphocytes % (Manual) Monocytes % (Manual) Seg Neutrophils # Seg Neutrophils # Man Lymphocytes # (Manual) Monocytes # (Manual) PT INR ABG pH POC ABG pCO2 POC ABG pO2 ABG pO2 ABG HCO3 ABG O2 Saturation ABG Base Excess ABG Hemoglobin ABG Oxyhemoglobin ABG Sodium ABG Potassium ABG Chloride ABG Glucose Oxyhemoglobin Sodium 116 L* D Potassium Chloride 79.1 L Carbon Dioxide 17 L D BUN 72 H Creatinine 7.4 H Glucose 2242 H* POC Glucose 117 H 138 H Lactic Acid Calcium 6.7 L D Phosphorus Magnesium Total Bilirubin AST ALT Alkaline Phosphatase Total Protein Albumin Triglycerides Arterial Blood Glucose Arterial Blood Ionized Calcium Digoxin Crossmatch 01/25/21 01/25/21 01/25/21 08:35 11:49 18:42 WBC RBC Hgb Hct MCV MCHC RDW Plt Count Lymph % (Auto) [place] % (Auto) Eos % (Auto) Lymph # (Auto) [place] # (Auto) Eos # (Auto) Seg Neutrophils % Seg Neuts % (Manual) Lymphocytes % (Manual) Monocytes % (Manual) Seg Neutrophils # Seg Neutrophils # Man Lymphocytes # (Manual) Monocytes # (Manual) PT INR ABG pH POC ABG pCO2 POC ABG pO2 ABG pO2 ABG HCO3 ABG O2 Saturation ABG Base Excess ABG Hemoglobin ABG Oxyhemoglobin ABG Sodium ABG Potassium ABG Chloride ABG Glucose Oxyhemoglobin Sodium Potassium Chloride 97.0 L Carbon Dioxide BUN 92 H Creatinine 11.0 H Glucose 125 H POC Glucose 130 H 122 H Lactic Acid Calcium Phosphorus Magnesium Total Bilirubin AST ALT Alkaline Phosphatase Total Protein Albumin Triglycerides Arterial Blood Glucose Arterial Blood Ionized Calcium Digoxin Crossmatch 01/25/21 01/26/21 01/26/21 23:37 04:19 05:48 WBC RBC Hgb Hct MCV MCHC RDW Plt Count Lymph % (Auto) [place] % (Auto) Eos % (Auto) Lymph # (Auto) [place] # (Auto) Eos # (Auto) Seg Neutrophils % Seg Neuts % (Manual) Lymphocytes % (Manual) Monocytes % (Manual) Seg Neutrophils # Seg Neutrophils # Man Lymphocytes # (Manual) Monocytes # (Manual) PT INR ABG pH POC ABG pCO2 POC ABG pO2 ABG pO2 ABG HCO3 ABG O2 Saturation ABG Base Excess ABG Hemoglobin ABG Oxyhemoglobin ABG Sodium ABG Potassium ABG Chloride ABG Glucose Oxyhemoglobin Sodium Potassium Chloride Carbon Dioxide BUN 49 H Creatinine 7.1 H Glucose POC Glucose 144 H 125 H Lactic Acid Calcium Phosphorus Magnesium 1.50 L Total Bilirubin AST ALT Alkaline Phosphatase Total Protein Albumin Triglycerides Arterial Blood Glucose Arterial Blood Ionized Calcium Digoxin Crossmatch 01/26/21 01/26/21 01/27/21 11:16 18:35 00:01 WBC RBC Hgb Hct MCV MCHC RDW Plt Count Lymph % (Auto) [place] % (Auto) Eos % (Auto) Lymph # (Auto) [place] # (Auto) Eos # (Auto) Seg Neutrophils % Seg Neuts % (Manual) Lymphocytes % (Manual) Monocytes % (Manual) Seg Neutrophils # Seg Neutrophils # Man Lymphocytes # (Manual) Monocytes # (Manual) PT INR ABG pH POC ABG pCO2 POC ABG pO2 ABG pO2 ABG HCO3 ABG O2 Saturation ABG Base Excess ABG Hemoglobin ABG Oxyhemoglobin ABG Sodium ABG Potassium ABG Chloride ABG Glucose Oxyhemoglobin Sodium Potassium Chloride Carbon Dioxide BUN Creatinine Glucose POC Glucose 122 H 127 H 130 H Lactic Acid Calcium Phosphorus Magnesium Total Bilirubin AST ALT Alkaline Phosphatase Total Protein Albumin Triglycerides Arterial Blood Glucose Arterial Blood Ionized Calcium Digoxin Crossmatch 01/27/21 01/27/21 01/27/21 04:19 04:19 05:25 WBC 12.4 H RBC 2.79 L Hgb 8.6 L Hct 25.1 L MCV MCHC RDW 16.1 H Plt Count Lymph % (Auto) 7.5 L [place] % (Auto) 9.3 H Eos % (Auto) 4.8 H Lymph # (Auto) 0.9 L [place] # (Auto) 1.1 H Eos # (Auto) 0.6 H Seg Neutrophils % 78.0 H Seg Neuts % (Manual) Lymphocytes % (Manual) Monocytes % (Manual) Seg Neutrophils # 9.7 H Seg Neutrophils # Man Lymphocytes # (Manual) Monocytes # (Manual) PT INR ABG pH POC ABG pCO2 POC ABG pO2 ABG pO2 ABG HCO3 ABG O2 Saturation ABG Base Excess ABG Hemoglobin ABG Oxyhemoglobin ABG Sodium ABG Potassium ABG Chloride ABG Glucose Oxyhemoglobin Sodium Potassium Chloride 97.9 L Carbon Dioxide BUN 76 H Creatinine 9.9 H Glucose 111 H POC Glucose 129 H Lactic Acid Calcium Phosphorus Magnesium Total Bilirubin AST ALT Alkaline Phosphatase Total Protein Albumin Triglycerides Arterial Blood Glucose Arterial Blood Ionized Calcium Digoxin Crossmatch 01/27/21 01/27/21 01/27/21 11:30 17:08 23:28 WBC RBC Hgb Hct MCV MCHC RDW Plt Count Lymph % (Auto) [place] % (Auto) Eos % (Auto) Lymph # (Auto) [place] # (Auto) Eos # (Auto) Seg Neutrophils % Seg Neuts % (Manual) Lymphocytes % (Manual) Monocytes % (Manual) Seg Neutrophils # Seg Neutrophils # Man Lymphocytes # (Manual) Monocytes # (Manual) PT INR ABG pH POC ABG pCO2 POC ABG pO2 ABG pO2 ABG HCO3 ABG O2 Saturation ABG Base Excess ABG Hemoglobin ABG Oxyhemoglobin ABG Sodium ABG Potassium ABG Chloride ABG Glucose Oxyhemoglobin Sodium Potassium Chloride Carbon Dioxide BUN Creatinine Glucose POC Glucose 128 H 158 H 114 H Lactic Acid Calcium Phosphorus Magnesium Total Bilirubin AST ALT Alkaline Phosphatase Total Protein Albumin Triglycerides Arterial Blood Glucose Arterial Blood Ionized Calcium Digoxin Crossmatch 01/28/21 01/28/21 01/28/21 05:17 11:27 18:01 WBC RBC Hgb Hct MCV MCHC RDW Plt Count Lymph % (Auto) [place] % (Auto) Eos % (Auto) Lymph # (Auto) [place] # (Auto) Eos # (Auto) Seg Neutrophils % Seg Neuts % (Manual) Lymphocytes % (Manual) Monocytes % (Manual) Seg Neutrophils # Seg Neutrophils # Man Lymphocytes # (Manual) Monocytes # (Manual) PT INR ABG pH POC ABG pCO2 POC ABG pO2 ABG pO2 ABG HCO3 ABG O2 Saturation ABG Base Excess ABG Hemoglobin ABG Oxyhemoglobin ABG Sodium ABG Potassium ABG Chloride ABG Glucose Oxyhemoglobin Sodium Potassium Chloride Carbon Dioxide BUN Creatinine Glucose POC Glucose 113 H 134 H 111 H Lactic Acid Calcium Phosphorus Magnesium Total Bilirubin AST ALT Alkaline Phosphatase Total Protein Albumin Triglycerides Arterial Blood Glucose Arterial Blood Ionized Calcium Digoxin Crossmatch 01/29/21 01/29/21 01/29/21 04:54 06:45 11:10 WBC RBC Hgb Hct MCV MCHC RDW Plt Count Lymph % (Auto) [place] % (Auto) Eos % (Auto) Lymph # (Auto) [place] # (Auto) Eos # (Auto) Seg Neutrophils % Seg Neuts % (Manual) Lymphocytes % (Manual) Monocytes % (Manual) Seg Neutrophils # Seg Neutrophils # Man Lymphocytes # (Manual) Monocytes # (Manual) PT INR ABG pH POC ABG pCO2 POC ABG pO2 ABG pO2 ABG HCO3 ABG O2 Saturation ABG Base Excess ABG Hemoglobin ABG Oxyhemoglobin ABG Sodium ABG Potassium ABG Chloride ABG Glucose Oxyhemoglobin Sodium Potassium 3.4 L Chloride Carbon Dioxide BUN 51 H Creatinine 6.9 H Glucose 120 H POC Glucose 111 H 106 H Lactic Acid Calcium Phosphorus 2.10 L Magnesium Total Bilirubin AST ALT Alkaline Phosphatase 182 H Total Protein 6.0 L Albumin 2.9 L Triglycerides Arterial Blood Glucose Arterial Blood Ionized Calcium Digoxin Crossmatch 01/29/21 01/30/21 01/30/21 16:47 04:15 06:55 WBC RBC Hgb Hct MCV MCHC RDW Plt Count Lymph % (Auto) [place] % (Auto) Eos % (Auto) Lymph # (Auto) [place] # (Auto) Eos # (Auto) Seg Neutrophils % Seg Neuts % (Manual) Lymphocytes % (Manual) Monocytes % (Manual) Seg Neutrophils # Seg Neutrophils # Man Lymphocytes # (Manual) Monocytes # (Manual) PT INR ABG pH POC ABG pCO2 POC ABG pO2 ABG pO2 ABG HCO3 ABG O2 Saturation ABG Base Excess ABG Hemoglobin ABG Oxyhemoglobin ABG Sodium ABG Potassium ABG Chloride ABG Glucose Oxyhemoglobin Sodium Potassium Chloride Carbon Dioxide BUN 73 H Creatinine 9.2 H Glucose 119 H POC Glucose 110 H 126 H Lactic Acid Calcium Phosphorus 4.70 H D Magnesium Total Bilirubin AST ALT Alkaline Phosphatase Total Protein Albumin Triglycerides Arterial Blood Glucose Arterial Blood Ionized Calcium Digoxin Crossmatch 01/30/21 01/31/21 01/31/21 18:25 00:51 07:15 WBC RBC Hgb Hct MCV MCHC RDW Plt Count Lymph % (Auto) [place] % (Auto) Eos % (Auto) Lymph # (Auto) [place] # (Auto) Eos # (Auto) Seg Neutrophils % Seg Neuts % (Manual) Lymphocytes % (Manual) Monocytes % (Manual) Seg Neutrophils # Seg Neutrophils # Man Lymphocytes # (Manual) Monocytes # (Manual) PT INR ABG pH POC ABG pCO2 POC ABG pO2 ABG pO2 ABG HCO3 ABG O2 Saturation ABG Base Excess ABG Hemoglobin ABG Oxyhemoglobin ABG Sodium ABG Potassium ABG Chloride ABG Glucose Oxyhemoglobin Sodium Potassium Chloride Carbon Dioxide BUN Creatinine Glucose POC Glucose 117 H 134 H 134 H Lactic Acid Calcium Phosphorus Magnesium Total Bilirubin AST ALT Alkaline Phosphatase Total Protein Albumin Triglycerides Arterial Blood Glucose Arterial Blood Ionized Calcium Digoxin Crossmatch 01/31/21 01/31/21 02/01/21 11:45 23:15 05:51 WBC RBC Hgb Hct MCV MCHC RDW Plt Count Lymph % (Auto) [place] % (Auto) Eos % (Auto) Lymph # (Auto) [place] # (Auto) Eos # (Auto) Seg Neutrophils % Seg Neuts % (Manual) Lymphocytes % (Manual) Monocytes % (Manual) Seg Neutrophils # Seg Neutrophils # Man Lymphocytes # (Manual) Monocytes # (Manual) PT INR ABG pH POC ABG pCO2 POC ABG pO2 ABG pO2 ABG HCO3 ABG O2 Saturation ABG Base Excess ABG Hemoglobin ABG Oxyhemoglobin ABG Sodium ABG Potassium ABG Chloride ABG Glucose Oxyhemoglobin Sodium Potassium Chloride Carbon Dioxide BUN Creatinine Glucose POC Glucose 119 H 120 H 125 H Lactic Acid Calcium Phosphorus Magnesium Total Bilirubin AST ALT Alkaline Phosphatase Total Protein Albumin Triglycerides Arterial Blood Glucose Arterial Blood Ionized Calcium Digoxin Crossmatch 02/01/21 02/02/21 02/02/21 22:05 03:25 06:16 WBC RBC Hgb Hct MCV MCHC RDW Plt Count Lymph % (Auto) [place] % (Auto) Eos % (Auto) Lymph # (Auto) [place] # (Auto) Eos # (Auto) Seg Neutrophils % Seg Neuts % (Manual) Lymphocytes % (Manual) Monocytes % (Manual) Seg Neutrophils # Seg Neutrophils # Man Lymphocytes # (Manual) Monocytes # (Manual) PT INR ABG pH POC ABG pCO2 POC ABG pO2 ABG pO2 ABG HCO3 ABG O2 Saturation ABG Base Excess ABG Hemoglobin ABG Oxyhemoglobin ABG Sodium ABG Potassium ABG Chloride ABG Glucose Oxyhemoglobin Sodium Potassium 3.3 L Chloride Carbon Dioxide BUN 38 H Creatinine 5.8 H Glucose 115 H POC Glucose 118 H 130 H Lactic Acid Calcium Phosphorus 1.80 L Magnesium 1.60 L Total Bilirubin AST ALT Alkaline Phosphatase Total Protein Albumin Triglycerides Arterial Blood Glucose Arterial Blood Ionized Calcium Digoxin Crossmatch 02/02/21 02/02/21 02/03/21 17:29 21:53 04:50 WBC RBC Hgb Hct MCV MCHC RDW Plt Count Lymph % (Auto) [place] % (Auto) Eos % (Auto) Lymph # (Auto) [place] # (Auto) Eos # (Auto) Seg Neutrophils % Seg Neuts % (Manual) Lymphocytes % (Manual) Monocytes % (Manual) Seg Neutrophils # Seg Neutrophils # Man Lymphocytes # (Manual) Monocytes # (Manual) PT INR ABG pH POC ABG pCO2 POC ABG pO2 ABG pO2 ABG HCO3 ABG O2 Saturation ABG Base Excess ABG Hemoglobin ABG Oxyhemoglobin ABG Sodium ABG Potassium ABG Chloride ABG Glucose Oxyhemoglobin Sodium Potassium Chloride Carbon Dioxide BUN Creatinine Glucose POC Glucose 115 H 120 H Lactic Acid Calcium Phosphorus Magnesium 1.60 L Total Bilirubin AST ALT Alkaline Phosphatase Total Protein Albumin Triglycerides Arterial Blood Glucose Arterial Blood Ionized Calcium Digoxin Crossmatch 02/03/21 02/03/21 02/03/21 06:12 18:25 23:47 WBC RBC Hgb Hct MCV MCHC RDW Plt Count Lymph % (Auto) [place] % (Auto) Eos % (Auto) Lymph # (Auto) [place] # (Auto) Eos # (Auto) Seg Neutrophils % Seg Neuts % (Manual) Lymphocytes % (Manual) Monocytes % (Manual) Seg Neutrophils # Seg Neutrophils # Man Lymphocytes # (Manual) Monocytes # (Manual) PT INR ABG pH POC ABG pCO2 POC ABG pO2 ABG pO2 ABG HCO3 ABG O2 Saturation ABG Base Excess ABG Hemoglobin ABG Oxyhemoglobin ABG Sodium ABG Potassium ABG Chloride ABG Glucose Oxyhemoglobin Sodium Potassium Chloride Carbon Dioxide BUN Creatinine Glucose POC Glucose 112 H 112 H 131 H Lactic Acid Calcium Phosphorus Magnesium Total Bilirubin AST ALT Alkaline Phosphatase Total Protein Albumin Triglycerides Arterial Blood Glucose Arterial Blood Ionized Calcium Digoxin Crossmatch 02/04/21 02/04/21 02/04/21 05:40 09:37 12:03 WBC RBC Hgb Hct MCV MCHC RDW Plt Count Lymph % (Auto) [place] % (Auto) Eos % (Auto) Lymph # (Auto) [place] # (Auto) Eos # (Auto) Seg Neutrophils % Seg Neuts % (Manual) Lymphocytes % (Manual) Monocytes % (Manual) Seg Neutrophils # Seg Neutrophils # Man Lymphocytes # (Manual) Monocytes # (Manual) PT INR ABG pH POC ABG pCO2 POC ABG pO2 ABG pO2 ABG HCO3 ABG O2 Saturation ABG Base Excess ABG Hemoglobin ABG Oxyhemoglobin ABG Sodium ABG Potassium ABG Chloride ABG Glucose Oxyhemoglobin Sodium 131 L D 135 L Potassium 3.0 L 3.1 L Chloride 93.4 L 96.7 L Carbon Dioxide BUN 46 H 52 H Creatinine 6.5 H 7.3 H Glucose 363 H 128 H POC Glucose 129 H Lactic Acid Calcium Phosphorus 2.40 L Magnesium 1.50 L 1.60 L Total Bilirubin AST ALT Alkaline Phosphatase Total Protein Albumin Triglycerides Arterial Blood Glucose Arterial Blood Ionized Calcium Digoxin Crossmatch 02/04/21 02/04/21 02/05/21 17:25 21:38 05:19 WBC RBC Hgb Hct MCV MCHC RDW Plt Count Lymph % (Auto) [place] % (Auto) Eos % (Auto) Lymph # (Auto) [place] # (Auto) Eos # (Auto) Seg Neutrophils % Seg Neuts % (Manual) Lymphocytes % (Manual) Monocytes % (Manual) Seg Neutrophils # Seg Neutrophils # Man Lymphocytes # (Manual) Monocytes # (Manual) PT INR ABG pH POC ABG pCO2 POC ABG pO2 ABG pO2 ABG HCO3 ABG O2 Saturation ABG Base Excess ABG Hemoglobin ABG Oxyhemoglobin ABG Sodium ABG Potassium ABG Chloride ABG Glucose Oxyhemoglobin Sodium Potassium Chloride Carbon Dioxide BUN Creatinine Glucose POC Glucose 132 H 108 H 116 H Lactic Acid Calcium Phosphorus Magnesium Total Bilirubin AST ALT Alkaline Phosphatase Total Protein Albumin Triglycerides Arterial Blood Glucose Arterial Blood Ionized Calcium Digoxin Crossmatch 02/05/21 02/05/21 02/05/21 06:30 11:25 16:20 WBC RBC Hgb Hct MCV MCHC RDW Plt Count Lymph % (Auto) [place] % (Auto) Eos % (Auto) Lymph # (Auto) [place] # (Auto) Eos # (Auto) Seg Neutrophils % Seg Neuts % (Manual) Lymphocytes % (Manual) Monocytes % (Manual) Seg Neutrophils # Seg Neutrophils # Man Lymphocytes # (Manual) Monocytes # (Manual) PT INR ABG pH POC ABG pCO2 POC ABG pO2 ABG pO2 ABG HCO3 ABG O2 Saturation ABG Base Excess ABG Hemoglobin ABG Oxyhemoglobin ABG Sodium ABG Potassium ABG Chloride ABG Glucose Oxyhemoglobin Sodium Potassium 3.2 L Chloride 96.5 L Carbon Dioxide BUN 76 H Creatinine 9.6 H Glucose 112 H POC Glucose 118 H 123 H Lactic Acid Calcium Phosphorus Magnesium 1.50 L Total Bilirubin AST ALT Alkaline Phosphatase 177 H Total Protein 6.0 L Albumin 2.9 L Triglycerides Arterial Blood Glucose Arterial Blood Ionized Calcium Digoxin Crossmatch 02/06/21 02/06/21 02/06/21 05:42 06:42 08:18 WBC RBC Hgb Hct MCV MCHC RDW Plt Count Lymph % (Auto) [place] % (Auto) Eos % (Auto) Lymph # (Auto) [place] # (Auto) Eos # (Auto) Seg Neutrophils % Seg Neuts % (Manual) Lymphocytes % (Manual) Monocytes % (Manual) Seg Neutrophils # Seg Neutrophils # Man Lymphocytes # (Manual) Monocytes # (Manual) PT INR ABG pH POC ABG pCO2 POC ABG pO2 ABG pO2 ABG HCO3 ABG O2 Saturation ABG Base Excess ABG Hemoglobin ABG Oxyhemoglobin ABG Sodium ABG Potassium ABG Chloride ABG Glucose Oxyhemoglobin Sodium 133 L Potassium Chloride 92.7 L Carbon Dioxide 19 L BUN 100 H Creatinine 11.9 H Glucose 114 H POC Glucose 118 H 114 H Lactic Acid Calcium Phosphorus 4.70 H Magnesium 1.60 L Total Bilirubin AST ALT Alkaline Phosphatase Total Protein Albumin Triglycerides Arterial Blood Glucose Arterial Blood Ionized Calcium Digoxin Crossmatch 02/06/21 02/07/21 02/07/21 23:22 04:35 04:35 WBC RBC 2.52 L Hgb 8.0 L Hct 22.5 L MCV MCHC 36 H RDW 16.7 H Plt Count Lymph % (Auto) 12.7 L [place] % (Auto) 10.2 H Eos % (Auto) 5.0 H Lymph # (Auto) [place] # (Auto) 1.0 H Eos # (Auto) 0.5 H Seg Neutrophils % 71.6 H Seg Neuts % (Manual) Lymphocytes % (Manual) Monocytes % (Manual) Seg Neutrophils # Seg Neutrophils # Man Lymphocytes # (Manual) Monocytes # (Manual) PT INR ABG pH POC ABG pCO2 POC ABG pO2 ABG pO2 ABG HCO3 ABG O2 Saturation ABG Base Excess ABG Hemoglobin ABG Oxyhemoglobin ABG Sodium ABG Potassium ABG Chloride ABG Glucose Oxyhemoglobin Sodium 135 L Potassium 3.4 L Chloride 95.5 L Carbon Dioxide BUN 59 H Creatinine 8.5 H Glucose POC Glucose 117 H Lactic Acid Calcium Phosphorus Magnesium Total Bilirubin AST ALT Alkaline Phosphatase Total Protein Albumin Triglycerides Arterial Blood Glucose Arterial Blood Ionized Calcium Digoxin Crossmatch 02/07/21 02/07/21 02/07/21 04:35 11:31 22:49 WBC RBC Hgb Hct MCV MCHC RDW Plt Count Lymph % (Auto) [place] % (Auto) Eos % (Auto) Lymph # (Auto) [place] # (Auto) Eos # (Auto) Seg Neutrophils % Seg Neuts % (Manual) Lymphocytes % (Manual) Monocytes % (Manual) Seg Neutrophils # Seg Neutrophils # Man Lymphocytes # (Manual) Monocytes # (Manual) PT INR ABG pH POC ABG pCO2 POC ABG pO2 ABG pO2 ABG HCO3 ABG O2 Saturation ABG Base Excess ABG Hemoglobin ABG Oxyhemoglobin ABG Sodium ABG Potassium ABG Chloride ABG Glucose Oxyhemoglobin Sodium Potassium Chloride Carbon Dioxide BUN Creatinine Glucose POC Glucose 117 H 122 H Lactic Acid Calcium Phosphorus Magnesium 1.60 L Total Bilirubin AST ALT Alkaline Phosphatase Total Protein Albumin Triglycerides Arterial Blood Glucose Arterial Blood Ionized Calcium Digoxin Crossmatch 02/08/21 02/08/21 02/08/21 04:56 06:45 22:38 WBC RBC Hgb Hct MCV MCHC RDW Plt Count Lymph % (Auto) [place] % (Auto) Eos % (Auto) Lymph # (Auto) [place] # (Auto) Eos # (Auto) Seg Neutrophils % Seg Neuts % (Manual) Lymphocytes % (Manual) Monocytes % (Manual) Seg Neutrophils # Seg Neutrophils # Man Lymphocytes # (Manual) Monocytes # (Manual) PT INR ABG pH POC ABG pCO2 POC ABG pO2 ABG pO2 ABG HCO3 ABG O2 Saturation ABG Base Excess ABG Hemoglobin ABG Oxyhemoglobin ABG Sodium ABG Potassium ABG Chloride ABG Glucose Oxyhemoglobin Sodium 134 L Potassium 3.5 L Chloride 94.2 L Carbon Dioxide BUN 78 H Creatinine 11.4 H Glucose 101 H POC Glucose 113 H 128 H Lactic Acid Calcium Phosphorus Magnesium Total Bilirubin AST ALT Alkaline Phosphatase Total Protein Albumin Triglycerides Arterial Blood Glucose Arterial Blood Ionized Calcium Digoxin Crossmatch 02/09/21 02/09/21 02/09/21 04:43 07:44 11:33 WBC RBC Hgb Hct MCV MCHC RDW Plt Count Lymph % (Auto) [place] % (Auto) Eos % (Auto) Lymph # (Auto) [place] # (Auto) Eos # (Auto) Seg Neutrophils % Seg Neuts % (Manual) Lymphocytes % (Manual) Monocytes % (Manual) Seg Neutrophils # Seg Neutrophils # Man Lymphocytes # (Manual) Monocytes # (Manual) PT INR ABG pH POC ABG pCO2 POC ABG pO2 ABG pO2 ABG HCO3 ABG O2 Saturation ABG Base Excess ABG Hemoglobin ABG Oxyhemoglobin ABG Sodium ABG Potassium ABG Chloride ABG Glucose Oxyhemoglobin Sodium 135 L Potassium 3.2 L Chloride 93.0 L Carbon Dioxide BUN 42 H Creatinine 8.1 H Glucose 128 H POC Glucose 115 H 127 H Lactic Acid Calcium Phosphorus 2.20 L D Magnesium Total Bilirubin AST ALT Alkaline Phosphatase Total Protein Albumin Triglycerides Arterial Blood Glucose Arterial Blood Ionized Calcium Digoxin Crossmatch 02/09/21 02/09/21 02/10/21 17:31 22:15 06:00 WBC RBC Hgb Hct MCV MCHC RDW Plt Count Lymph % (Auto) [place] % (Auto) Eos % (Auto) Lymph # (Auto) [place] # (Auto) Eos # (Auto) Seg Neutrophils % Seg Neuts % (Manual) Lymphocytes % (Manual) Monocytes % (Manual) Seg Neutrophils # Seg Neutrophils # Man Lymphocytes # (Manual) Monocytes # (Manual) PT INR ABG pH POC ABG pCO2 POC ABG pO2 ABG pO2 ABG HCO3 ABG O2 Saturation ABG Base Excess ABG Hemoglobin ABG Oxyhemoglobin ABG Sodium ABG Potassium ABG Chloride ABG Glucose Oxyhemoglobin Sodium Potassium Chloride 95.4 L Carbon Dioxide BUN 65 H Creatinine 10.2 H Glucose 114 H POC Glucose 114 H 117 H Lactic Acid Calcium Phosphorus 2.20 L Magnesium 2.80 H Total Bilirubin AST ALT Alkaline Phosphatase Total Protein Albumin Triglycerides Arterial Blood Glucose Arterial Blood Ionized Calcium Digoxin Crossmatch 02/10/21 02/10/21 02/10/21 06:21 11:45 22:48 WBC RBC Hgb Hct MCV MCHC RDW Plt Count Lymph % (Auto) [place] % (Auto) Eos % (Auto) Lymph # (Auto) [place] # (Auto) Eos # (Auto) Seg Neutrophils % Seg Neuts % (Manual) Lymphocytes % (Manual) Monocytes % (Manual) Seg Neutrophils # Seg Neutrophils # Man Lymphocytes # (Manual) Monocytes # (Manual) PT INR ABG pH POC ABG pCO2 POC ABG pO2 ABG pO2 ABG HCO3 ABG O2 Saturation ABG Base Excess ABG Hemoglobin ABG Oxyhemoglobin ABG Sodium ABG Potassium ABG Chloride ABG Glucose Oxyhemoglobin Sodium 135 L Potassium 3.1 L Chloride 96.3 L Carbon Dioxide BUN 29 H Creatinine 6.2 H Glucose 115 H POC Glucose 111 H 129 H Lactic Acid Calcium 8.0 L Phosphorus Magnesium Total Bilirubin AST ALT Alkaline Phosphatase Total Protein Albumin Triglycerides Arterial Blood Glucose Arterial Blood Ionized Calcium Digoxin Crossmatch 02/10/21 02/11/21 02/11/21 23:58 04:20 06:23 WBC RBC Hgb Hct MCV MCHC RDW Plt Count Lymph % (Auto) [place] % (Auto) Eos % (Auto) Lymph # (Auto) [place] # (Auto) Eos # (Auto) Seg Neutrophils % Seg Neuts % (Manual) Lymphocytes % (Manual) Monocytes % (Manual) Seg Neutrophils # Seg Neutrophils # Man Lymphocytes # (Manual) Monocytes # (Manual) PT INR ABG pH POC ABG pCO2 POC ABG pO2 ABG pO2 ABG HCO3 ABG O2 Saturation ABG Base Excess ABG Hemoglobin ABG Oxyhemoglobin ABG Sodium ABG Potassium ABG Chloride ABG Glucose Oxyhemoglobin Sodium 136 L Potassium 3.3 L Chloride 97.4 L Carbon Dioxide BUN 34 H Creatinine 6.9 H Glucose 116 H POC Glucose 125 H 120 H Lactic Acid Calcium Phosphorus 2.00 L Magnesium Total Bilirubin AST ALT Alkaline Phosphatase Total Protein Albumin Triglycerides Arterial Blood Glucose Arterial Blood Ionized Calcium Digoxin Crossmatch 02/11/21 02/11/21 02/11/21 11:25 17:31 23:23 WBC RBC Hgb Hct MCV MCHC RDW Plt Count Lymph % (Auto) [place] % (Auto) Eos % (Auto) Lymph # (Auto) [place] # (Auto) Eos # (Auto) Seg Neutrophils % Seg Neuts % (Manual) Lymphocytes % (Manual) Monocytes % (Manual) Seg Neutrophils # Seg Neutrophils # Man Lymphocytes # (Manual) Monocytes # (Manual) PT INR ABG pH POC ABG pCO2 POC ABG pO2 ABG pO2 ABG HCO3 ABG O2 Saturation ABG Base Excess ABG Hemoglobin ABG Oxyhemoglobin ABG Sodium ABG Potassium ABG Chloride ABG Glucose Oxyhemoglobin Sodium Potassium Chloride Carbon Dioxide BUN Creatinine Glucose POC Glucose 125 H 115 H 119 H Lactic Acid Calcium Phosphorus Magnesium Total Bilirubin AST ALT Alkaline Phosphatase Total Protein Albumin Triglycerides Arterial Blood Glucose Arterial Blood Ionized Calcium Digoxin Crossmatch Allied health notes reviewed: nursing
[2021-02-12 12:02] LABS: Calcium 9.2 mg/dL (8.4-10.2)
--- NOTE | 2021-02-12 12:15 | Progress Note ---
Assessment and Plan POD#48 s/p ex lap with extensive lysis of adhesions and two small bowel resections with primary anastamosis for SBO with necrotic segment small bowel. POD#39 s/p ex lap, resection of perforated anastamosis, washout and abthera wound vac placement. POD#37 s/p ex lap with right hemicolectomy. POD#35 s/p ex lap, with jejunal-colonic anastamosis and closure of abdomen. Afebrile and stable. 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 Continue HARIS drain suction. HARIS drain must be secured and kept in place. Patient will need to be on TPN for the foreseeable future due to inability to use his GI tract to the point of getting adequate nutrition from oral diet at this time. continue g-tube to drainage for decompression. continue clear liquids and closely monitor HARIS drain output. I spoke to case management yesterday. They are sending patient's chart to LTAC facilities to review for possible transfer. Will talk to case management about the possibility of home health, PT and TPN. Subjective Date of service: 02/12/21 Narrative: No acute events overnight. Patient tolerating clear liquid without nausea or vomiting. Patient continued to have diarrhea but it is slightly less. Objective Vital Signs - 12hr 02/12/21 02/12/21 02/12/21 03:00 05:03 08:00 Temperature 98.6 F 98.7 F Pulse Rate 73 77 Respiratory 18 77 H Rate Respiratory 17 Rate [Anterior Abdomen] Blood Pressure 132/66 Blood Pressure 137/69 [Right] O2 Sat by Pulse 98 100 Oximetry 02/12/21 02/12/21 10:14 10:15 Temperature Pulse Rate 77 77 Respiratory Rate Respiratory Rate [Anterior Abdomen] Blood Pressure 137/69 137/69 Blood Pressure [Right] O2 Sat by Pulse Oximetry - General physical appearance well developed, no distress, no pain - Respiratory normal expansion, normal respiratory effort - Abdomen soft, other (non tender, HARIS drain scant fluid (125cc recorded over last 24 h. Feel it was input in error as last 7 days have been 5-15), g-tube intact) - Labs 02/07/21 04:35 02/12/21 11:30 Diabetes panel 02/12/21 Range/Units 11:30 Sodium 135 L (137-145) mmol/L Potassium 4.1 D (3.6-5.0) mmol/L Chloride 97.0 L (98-107) mmol/L Carbon Dioxide 23 (22-30) mmol/L BUN 63 H (9-20) mg/dL Creatinine 9.8 H (0.8-1.3) mg/dL Glucose 113 H (75-100) mg/dL Calcium 9.2 (8.4-10.2) mg/dL Calcium panel 02/12/21 Range/Units 11:30 Calcium 9.2 (8.4-10.2) mg/dL Phosphorus 3.60 D (2.5-4.5) mg/dL Pituitary panel 02/12/21 Range/Units 11:30 Sodium 135 L (137-145) mmol/L Potassium 4.1 D (3.6-5.0) mmol/L Chloride 97.0 L (98-107) mmol/L Carbon Dioxide 23 (22-30) mmol/L BUN 63 H (9-20) mg/dL Creatinine 9.8 H (0.8-1.3) mg/dL Glucose 113 H (75-100) mg/dL Calcium 9.2 (8.4-10.2) mg/dL Adrenal panel 02/12/21 Range/Units 11:30 Sodium 135 L (137-145) mmol/L Potassium 4.1 D (3.6-5.0) mmol/L Chloride 97.0 L (98-107) mmol/L Carbon Dioxide 23 (22-30) mmol/L BUN 63 H (9-20) mg/dL Creatinine 9.8 H (0.8-1.3) mg/dL Glucose 113 H (75-100) mg/dL Calcium 9.2 (8.4-10.2) mg/dL
[2021-02-12] MEDS: DIGOXIN 0.125 MG TAB PO SCH (12:42)
--- NOTE | 2021-02-12 18:06 | Progress Note ---
Assessment and Plan Assessment: * ESRD previously on peritoneal dialysis; now on back up HD (on peritoneal dialysis for 2 years) * Small bowel obstruction --s/p ex-lap with jejuno-ileal anastamosis --s/p ex lap with extensive lysis of adhesions and two small bowel resections with primary anastamosis for SBO with necrotic segment small bowel. --s/p ex lap, resection of perforated anastamosis, washout and abthera wound vac placement. --s/p ex lap with right hemicolectomy. * Acute respiratory failure, s/p extubation * Septic shock - resolved * Bacteremia - resolved * Anemia of ESRD * Atrial fibrilation, new onset * Post op ileus Plan: * Continue HD MWF via left IJ permcath (12/27) * 3K bath with dialysis * Decreased UF while experiencing ongoing diarrhea * Epogen 10k units w/ dialysis * Rate control per cardiology * Nutrition per primary team * Maintatin MAP >65 * Surgery notes reviewed. Octreotide d/c by surgery. HARIS drain inplace. * He will also require outpatient hemodialysis chair prior to discharge * Elevated BUN likely secondary to catabolic state. Continue increased dialysis time - 4 hours. Subjective Date of service: 02/12/21 Principal diagnosis: Ac hypoxemic resp failure; Severe Sepsis; Peritonitis; Acute SBO; ESRD; CHF Interval history: Resting. Ongoing diarrhea. Receiving TPN Objective - Exam Narrative Exam: General appearance: NAD Eyes: anicteric sclerae HENT: Normocephalic, Atraumatic Neck: supple, tracheal midline, no JVD Lungs: CTAB CV: RRR Abdomen: Soft, distended, periumbilical tenderness. HARIS drain. G-tube Extremities: no edema, no cyanosis Skin: No rash. Psych: Calm Neuro: Following commands HARIS drain G-tube - Vital Signs Vital signs: Vital Signs - 12hr 02/12/21 02/12/21 02/12/21 08:00 10:14 10:15 Temperature 98.7 F Pulse Rate 77 77 77 Respiratory 77 H Rate Blood Pressure 137/69 137/69 Blood Pressure 137/69 [Right] O2 Sat by Pulse 100 Oximetry 02/12/21 02/12/21 02/12/21 12:00 12:42 14:10 Temperature 98.2 F Pulse Rate 68 71 70 Respiratory 20 Rate Blood Pressure 149/79 Blood Pressure 146/83 [Right] O2 Sat by Pulse 100 Oximetry 02/12/21 02/12/21 02/12/21 14:11 17:22 17:43 Temperature 98.7 F Pulse Rate 70 71 61 Respiratory 24 Rate Blood Pressure 149/79 145/79 Blood Pressure 145/79 [Right] O2 Sat by Pulse 97 Oximetry - Lab 02/07/21 04:35 02/12/21 11:30 Most recent lab results ABG pH 7.345 pH Units (7.350-7.450) L 01/07/21 17:14 ABG pCO2 40.3 mm Hg 01/07/21 17:14 ABG pO2 67.4 mm Hg (80.0-90.0) L 01/07/21 17:14 ABG HCO3 21.5 mmol/L (20.0-26.0) 01/07/21 17:14 ABG O2 Saturation 94.3 % (95.0-99.0) L 01/07/21 17:14 Calcium 9.2 mg/dL (8.4-10.2) 02/12/21 11:30 Phosphorus 3.60 mg/dL (2.5-4.5) D 02/12/21 11:30 Magnesium 1.80 mg/dL (1.7-2.3) 02/12/21 11:30 Medications & Allergies - Medications Allergies/Adverse Reactions: Allergies No Known Allergies Allergy (Verified 06/09/20 15:27) Home Medications: Home Medications Medication Instructions Recorded Confirmed Last Taken Type Albuterol Mdi (or & Nicu Only) 2 puff IH QID PRN #1 inhalation 04/01/17 02/05/21 10/31/20 09:00 Rx [ProAir HFA Inhaler] Calcium Acetate 667 mg PO DAILY 04/20/20 02/05/21 10/31/20 09:00 History Centrum Men's Tablet 1 tab PO DAILY 04/20/20 02/05/21 10/31/20 09:00 History Cinacalcet 30 mg PO DAILY 04/20/20 02/05/21 10/31/20 09:00 History Dialyvite with Zinc Tablet 1 tab PO DAILY 04/20/20 02/05/21 10/31/20 09:00 History Magnesium 250 mg PO BID 04/20/20 02/05/21 10/31/20 17:00 History Triamcinolone 0.1% 1 1000units TRANSDERMA DAILY 04/20/20 02/05/21 10/31/20 09:00 History Vit B12/Folic Acid/B6/Aa No.15 1,000 mg PO DAILY 04/20/20 02/05/21 10/31/20 09:00 History amLODIPine 10 mg PO DAILY 06/09/20 02/05/21 10/31/20 09:00 History AtorvaSTATin 40 mg PO HS 11/01/20 02/05/21 10/31/20 21:00 History Benadryl 25 mg PO HS 11/01/20 02/05/21 10/31/20 21:00 History Diclofenac 1 applic TRANSDERMA QID 11/01/20 02/05/21 10/31/20 19:00 History Fluticasone Propionate 1 spray INTRANASAL DAILY 11/01/20 02/05/21 10/31/20 09:00 History Vitamin D3 2,000 units PO QDAY 11/01/20 02/05/21 10/31/20 09:00 History carvediloL 12.5 mg PO DAILY 11/01/20 02/05/21 10/31/20 09:00 History hydrALAZINE 100 mg PO TID 11/01/20 02/05/21 10/31/20 19:00 History Active Medications: Generic Name Dose Route Start Last Admin Trade Name Freq PRN Reason Stop Dose Admin Acetaminophen 650 mg 12/31/20 15:30 01/21/21 05:28 Acetaminophen 650 Mg Rect Supp [place] 650 mg Q6H PRN Administration Non Cardiac Pain or Temp>100.5 Clonidine HCl 0.2 mg 01/11/21 10:00 02/08/21 10:00 Clonidine Tts 0.2 Mg/24 Hr Patch TD Not Given We THOMAS Dextrose 50 ml 01/14/21 17:59 01/18/21 15:10 Dextrose 50% In Water (25gm) 50 Ml Syringe IV 20 ml Q30MIN PRN Administration Hypoglycemia Protocol Digoxin 0.125 mg 02/04/21 10:00 02/12/21 12:42 Digoxin 0.125 Mg Tab PO 0.125 mg Q48HR THOMAS Administration Diphenhydramine HCl 50 mg 01/20/21 10:10 02/01/21 14:15 Diphenhydramine 50 Mg/Ml Vial IV 50 mg Q6H PRN Administration Itching Diphenoxylate HCl/Atropine 1 tab 02/06/21 18:00 02/12/21 17:22 Diphenoxylate/Atropine Tab PO 1 tab Q6H THOMAS Administration Famotidine 10 mg 12/24/20 13:00 02/12/21 10:14 Famotidine 20 Mg/2 Ml Inj IV 10 mg BID THOMAS Administration Fluticasone Propionate 50 mcg 02/07/21 10:00 02/11/21 20:48 Fluticasone Propionate Nasal [place] 16 Gm NS Not Given QDAY [facility] Haloperidol Lactate 5 mg 12/29/20 14:16 01/22/21 23:56 Haloperidol Lactate 5 Mg/1 Ml Inj IV 5 mg Q12H PRN Administration Agitation Heparin Sodium (Porcine) 5,000 unit 12/24/20 10:00 02/12/21 10:13 Heparin 5,000 Unit/1 Ml Vial SUB-Q 5,000 unit Q12HR THOMAS Administration Hydralazine HCl 10 mg 01/10/21 14:00 02/12/21 17:22 Hydralazine 20 Mg/1 Ml Inj IV 10 mg Q4HR THOMAS Administration Hydrocortisone Acetate 1 applic 02/01/21 18:43 Hydrocortisone 1% Cream 28.4gm TP Q8H PRN Skin Irritation Hydromorphone HCl 0.25 mg 01/09/21 10:53 02/09/21 05:04 Hydromorphone 1 Mg/1 Ml Inj IV 0.25 mg Q6H PRN Administration Pain , Severe (7-10) Sodium Chloride 100 mls @ 999 mls/hr 01/27/21 18:37 Nacl 0.9% IV [place] PRN Hypotension Amino Acids/Electrolytes/Dextrose 2,016 mls @ 84 mls/hr 02/11/21 20:00 02/11/21 20:47 Tpn Adult IV 02/12/21 19:59 84 mls/hr [email or web address] [facility] Administration Protocol Amino Acids/Electrolytes/Dextrose 2,016 mls @ 84 mls/hr 02/12/21 20:00 Tpn Adult IV 02/13/21 19:59 [email or web address] [facility] Protocol Insulin Glargine 5 units 01/18/21 22:00 02/11/21 22:44 Insulin Glargine 100 Units/Ml SUB-Q 5 units QHS THOMAS Administration Insulin Human Lispro 0 unit 01/03/21 12:00 02/12/21 17:23 Insulin Lispro 100 Unit/Ml SUB-Q Not Given Q6HR [facility] Protocol Metoprolol Tartrate 5 mg 12/30/20 12:00 02/12/21 17:22 Metoprolol Tartrate 5 Mg/5 Ml Inj IV 5 mg Q4HR THOMAS Administration Morphine Sulfate 2 mg 02/02/21 12:00 02/03/21 13:31 Morphine 2 Mg/1 Ml Inj IV 2 mg Q3H PRN Administration Pain, Moderate (4-6) Ondansetron HCl 4 mg 01/25/21 11:56 02/08/21 12:44 Ondansetron 4 Mg/2 Ml Inj IV 4 mg Q4H PRN Administration Nausea And Vomiting Scopolamine 1 each 01/15/21 11:00 02/11/21 09:55 Scopolamine Transdermal Patch 72 Hr TD 1 each Q3D THOMAS Administration Sodium Chloride 10 ml 12/22/20 22:00 02/12/21 12:42 Sodium Chloride 0.9% 10 Ml Flush Syringe IV 10 ml BID THOMAS Administration Sodium Chloride 10 ml 12/22/20 19:42 01/29/21 02:08 Sodium Chloride 0.9% 10 Ml Flush Syringe IV 10 ml PRN PRN Administration LINE FLUSH
[2021-02-12] MEDS ORDERED: TOTAL PARENTERAL NUTRITION 2,016 ML IV SCH (20:00)
[2021-02-12] MEDS: FLUTICASONE PROPIONATE NASAL SPRAY 16 GM NS SCH (21:18)
[2021-02-12] MEDS: INSULIN GLARGINE 100 UNITS/ML SUB-Q SCH (22:06)
[2021-02-13] MEDS: INSULIN LISPRO 100 UNIT/ML SUB-Q SCH ×3 (00:45→17:53)
[2021-02-13] MEDS: DIPHENOXYLATE/ATROPINE TAB PO SCH ×5 (00:48→23:25)
[2021-02-13] MEDS: hydrALAZINE 20 MG/1 ML INJ IV SCH ×6 (02:07→21:59)
[2021-02-13] MEDS: METOPROLOL TARTRATE 5 MG/5 ML INJ IV SCH ×6 (02:07→21:59)
[2021-02-13 06:43] LABS: Albumin 3.2 g/dL (3.9-5); Calcium 9.2 mg/dL (8.4-10.2)
--- NOTE | 2021-02-13 09:09 | Progress Note ---
Assessment and Plan Assessment: * ESRD previouaslyon peritoneal dialysis; now on back up HD (on peritoneal dialysis for 2 years with no history of peritonitis) * Small bowel obstruction --s/p ex-lap with jejuno-ileal anastamosis --s/p ex lap with extensive lysis of adhesions and two small bowel resections with primary anastamosis for SBO with necrotic segment small bowel. --s/p ex lap, resection of perforated anastamosis, washout and abthera wound vac placement. --s/p ex lap with right hemicolectomy. * Acute respiratory failure * Septic shock - resolved * Bacteremia - resolved * Hyperkalemia * Anemia of ESRD * Post op ileus * Paroxysmal atrial fibrillation * Hx of nonischemic cardiomyopathy, resolving --LVEF 50-55% by echo this presentation Plan: * Continue HD MWF via left IJ permcath * 3K bath with dialysis * UF as tolerated * Epogen w/ dialysis * Rate control per cardiology * Abx per primary team/ID * Nutrition per primary team - currently receiving TPN * Maintatin MAP >65 * AM labs Subjective Date of service: 02/13/21 Principal diagnosis: Ac hypoxemic resp failure; Severe Sepsis; Peritonitis; Acute SBO; ESRD; CHF Interval history: No acute events overnight. Patient has no complaints today. Objective - Vital Signs Vital signs: Vital Signs - 12hr 02/13/21 04:52 Temperature 97.4 F L Pulse Rate 73 Respiratory 18 Rate Blood Pressure 153/76 O2 Sat by Pulse 98 Oximetry - General Appearance General appearance: well-developed, well-nourished EENT: ATNC Respiratory: Present: Clear to Ascultation Cardiology: regular, S1S2 Integumentary: warm and dry Psychiatric: cooperative - Lab 02/07/21 04:35 02/13/21 06:05 Most recent lab results ABG pH 7.345 pH Units (7.350-7.450) L 01/07/21 17:14 ABG pCO2 40.3 mm Hg 01/07/21 17:14 ABG pO2 67.4 mm Hg (80.0-90.0) L 01/07/21 17:14 ABG HCO3 21.5 mmol/L (20.0-26.0) 01/07/21 17:14 ABG O2 Saturation 94.3 % (95.0-99.0) L 01/07/21 17:14 Calcium 9.2 mg/dL (8.4-10.2) 02/13/21 06:05 Phosphorus 5.00 mg/dL (2.5-4.5) H D 02/13/21 06:05 Magnesium 1.70 mg/dL (1.7-2.3) 02/13/21 06:05 Medications & Allergies - Medications Allergies/Adverse Reactions: Allergies No Known Allergies Allergy (Verified 06/09/20 15:27) Home Medications: Home Medications Medication Instructions Recorded Confirmed Last Taken Type Albuterol Mdi (or & Nicu Only) 2 puff IH QID PRN #1 inhalation 04/01/17 02/05/21 10/31/20 09:00 Rx [ProAir HFA Inhaler] Calcium Acetate 667 mg PO DAILY 04/20/20 02/05/21 10/31/20 09:00 History Centrum Men's Tablet 1 tab PO DAILY 04/20/20 02/05/21 10/31/20 09:00 History Cinacalcet 30 mg PO DAILY 04/20/20 02/05/21 10/31/20 09:00 History Dialyvite with Zinc Tablet 1 tab PO DAILY 04/20/20 02/05/21 10/31/20 09:00 History Magnesium 250 mg PO BID 04/20/20 02/05/21 10/31/20 17:00 History Triamcinolone 0.1% 1 1000units TRANSDERMA DAILY 04/20/20 02/05/21 10/31/20 09:00 History Vit B12/Folic Acid/B6/Aa No.15 1,000 mg PO DAILY 04/20/20 02/05/21 10/31/20 09:00 History amLODIPine 10 mg PO DAILY 06/09/20 02/05/21 10/31/20 09:00 History AtorvaSTATin 40 mg PO HS 11/01/20 02/05/21 10/31/20 21:00 History Benadryl 25 mg PO HS 11/01/20 02/05/21 10/31/20 21:00 History Diclofenac 1 applic TRANSDERMA QID 11/01/20 02/05/21 10/31/20 19:00 History Fluticasone Propionate 1 spray INTRANASAL DAILY 11/01/20 02/05/21 10/31/20 09:00 History Vitamin D3 2,000 units PO QDAY 11/01/20 02/05/21 10/31/20 09:00 History carvediloL 12.5 mg PO DAILY 11/01/20 02/05/21 10/31/20 09:00 History hydrALAZINE 100 mg PO TID 11/01/20 02/05/21 10/31/20 19:00 History Active Medications: Generic Name Dose Route Start Last Admin Trade Name Freq PRN Reason Stop Dose Admin Acetaminophen 650 mg 12/31/20 15:30 01/21/21 05:28 Acetaminophen 650 Mg Rect Supp [place] 650 mg Q6H PRN Administration Non Cardiac Pain or Temp>100.5 Clonidine HCl 0.2 mg 01/11/21 10:00 02/08/21 10:00 Clonidine Tts 0.2 Mg/24 Hr Patch TD Not Given We THOMAS Dextrose 50 ml 01/14/21 17:59 01/18/21 15:10 Dextrose 50% In Water (25gm) 50 Ml Syringe IV 20 ml Q30MIN PRN Administration Hypoglycemia Protocol Digoxin 0.125 mg 02/04/21 10:00 02/12/21 12:42 Digoxin 0.125 Mg Tab PO 0.125 mg Q48HR THOMAS Administration Diphenhydramine HCl 50 mg 01/20/21 10:10 02/01/21 14:15 Diphenhydramine 50 Mg/Ml Vial IV 50 mg Q6H PRN Administration Itching Diphenoxylate HCl/Atropine 1 tab 02/06/21 18:00 02/13/21 06:17 Diphenoxylate/Atropine Tab PO 1 tab Q6H THOMAS Administration Famotidine 10 mg 12/24/20 13:00 02/12/21 22:06 Famotidine 20 Mg/2 Ml Inj IV 10 mg BID THOMAS Administration Fluticasone Propionate 50 mcg 02/07/21 10:00 02/12/21 21:18 Fluticasone Propionate Nasal [place] 16 Gm NS Not Given QDAY THOMAS Haloperidol Lactate 5 mg 12/29/20 14:16 01/22/21 23:56 Haloperidol Lactate 5 Mg/1 Ml Inj IV 5 mg Q12H PRN Administration Agitation Heparin Sodium (Porcine) 5,000 unit 12/24/20 10:00 02/12/21 22:06 Heparin 5,000 Unit/1 Ml Vial SUB-Q 5,000 unit Q12HR THOMAS Administration Hydralazine HCl 10 mg 01/10/21 14:00 02/13/21 06:11 Hydralazine 20 Mg/1 Ml Inj IV 10 mg Q4HR THOMAS Administration Hydrocortisone Acetate 1 applic 02/01/21 18:43 Hydrocortisone 1% Cream 28.4gm TP Q8H PRN Skin Irritation Hydromorphone HCl 0.25 mg 01/09/21 10:53 02/09/21 05:04 Hydromorphone 1 Mg/1 Ml Inj IV 0.25 mg Q6H PRN Administration Pain , Severe (7-10) Sodium Chloride 100 mls @ 999 mls/hr 01/27/21 18:37 Nacl 0.9% IV [place] PRN Hypotension Amino Acids/Electrolytes/Dextrose 2,016 mls @ 84 mls/hr 02/12/21 20:00 02/12 20:53 Tpn Adult IV 02/13/21 19:59 84 mls/hr [email or web address] [facility] Administration Protocol Insulin Glargine 5 units 01/18/21 22:00 02/12/21 22:06 Insulin Glargine 100 Units/Ml SUB-Q 5 units QHS [facility] Administration Insulin Human Lispro 0 unit 01/03/21 12:00 02/13/21 00:45 Insulin Lispro 100 Unit/Ml SUB-Q Not Given Q6HR [facility] Protocol Metoprolol Tartrate 5 mg 12/30/20 12:00 02/13/21 06:11 Metoprolol Tartrate 5 Mg/5 Ml Inj IV 5 mg Q4HR THOMAS Administration Morphine Sulfate 2 mg 02/02/21 12:00 02/03/21 13:31 Morphine 2 Mg/1 Ml Inj IV 2 mg Q3H PRN Administration Pain, Moderate (4-6) Ondansetron HCl 4 mg 01/25/21 11:56 02/08/21 12:44 Ondansetron 4 Mg/2 Ml Inj IV 4 mg Q4H PRN Administration Nausea And Vomiting Scopolamine 1 each 01/15/21 11:00 02/11/21 09:55 Scopolamine Transdermal Patch 72 Hr TD 1 each Q3D THOMAS Administration Sodium Chloride 10 ml 12/22/20 22:00 02/12/21 22:05 Sodium Chloride 0.9% 10 Ml Flush Syringe IV 10 ml BID THOMAS Administration Sodium Chloride 10 ml 12/22/20 19:42 01/29/21 02:08 Sodium Chloride 0.9% 10 Ml Flush Syringe IV 10 ml PRN PRN Administration LINE FLUSH
[2021-02-13] MEDS: HYDROmorphone 1 MG/1 ML INJ IV PRN (10:39)
[2021-02-13] MEDS: EPOETIN ALFA-EPBX 10,000 UNIT/1 ML VIAL SUB-Q PRN (10:40)
--- NOTE | 2021-02-13 14:08 | Progress Note ---
Assessment and Plan Assessment and plan: Severe Sepsis with shock Streptococcus bovis bacteremia/Prevotella bacteremia Gwendolyn albicans tracheal aspirate Small bowel obstruction/necrotic bowel s/p ex lap with extensive lysis of adhesions, 2 small bowel resections with primary anastomosis, right hemicolectomy, jejunal colonic anastomosis, segmental small bowel resection Postoperative ileus Atrial fibrillation with RVR Leukocytosis Hypochloremia Gwendolyn albicans in tracheal aspirate from 12/24 ESRD on PD, PermCath to be placed Transaminitis Systolic CHF(EF 35%) Crohn's disease Hypertension Hypokalemia and hypophosphatemia -[facility], surgery, infectious disease, nephrology, vascular surgery, cardiology consulted, appreciate recommendations -12/24 S/p ex lap with extensive expectations, 2 small bowel resections with primary anastomosis with surgery on 12/23 -s/p PICC and Permacath placement with vascular surgery on 12/27 -Extubated on 12/28, reintubated 12/31 for respiratory distress and extubated 01/08 -12/29 echocardiogram shows moderate concentric LVH, small pericardial effusion, transmitral Doppler flow pattern is grade 1 abnormal relaxation pattern, left- ventricular systolic function normal, LVEF 50 to 55%, no wall motion abnormalities. -01/01 CT abdomen/pelvis shows small pericardial effusion, mild coronary artery atherosclerotic calcification, small bilateral pleural effusions with associated volume loss, no convincing evidence of bowel obstruction or inflammation, postoperative changes from interval/recent midline laparotomy with a moderate amount of free fluid throughout the abdomen, small amount of dependent free air presumably postoperative -01/02 s/p ex lap, resection of perforated anastamosis, washout and abthera wound vac placement. -01/04 s/p ex lap with right hemicolectomy. -01/06 s/p exploratory laparotomy, Jejunal colonic anastomosis, Segmental small bowel resection. -s/p Vasopressor support with Levophed and vasopressin -Transitioned to HD from PD -HD per nephro, Epogen with HD -Strict NPO -cont TPN, Octreotide drip -s/p NGT to LIWS, now placed on G-tube for decompression - s/p rectal tube -s/p IV antibiotics -Tobacco abuse cessation counseling -Trend CBC, BMP DVT/GI prophylaxis: PPI, heparin subcu, SCDs to bilateral lower extremities while in bed Brief Course: This is a 60 YO Male with ESRD on PD, GERD, Crohn's Disease, Nicotine Dependence, HTN, Systolic CHF(EF 35%) who presented to the emergency department on 12/22 with complaints of abdominal pain which began shortly after eating fast food rated 10/10 which is periumbilical, constant, associated with fever, nausea and multiple sites of vomiting and self-reported inability to undergo PD. In the emergency room patient underwent a CT scan of the abdomen/pelvis which revealed evidence of partial small bowel obstruction, symptoms were consistent with bacterial peritonitis. Patient was admitted to the hospital service with sepsis, peritonitis, and small bowel obstruction with consults to general surgery, nephrology, infectious disease and [facility]. Daily clinical course: 12/23. Patient had temperature 101.2 F, tachycardia and elevated lactic acid on admission. Meet sepsis criteria. Started on IV antibiotics. ID has been consulted. Surgery consulted this a.m.-advised laparoscopy. He remains on NG tube connected to suction. 12/24. Patient was noted to have peritonitis yesterday and patient undergoing exploratory laparotomy. Patient remained intubated after procedure and is in ICU. Now on broad-spectrum antibiotics. ID on board. 12/25. Remains mechanically ventilated and sedated. Temp 103 Fahrenheit. Antibiotics broadened-ID added fluconazole and Flagyl. Blood cultures ordered. Plan to repeat CT abdomen tomorrow if not better. Surgery following. 12/26: Patient remains on mechanical ventilation on CMV tidal line 550, rate of 14, PEEP of 8 and 30% FiO2 and sedated on fentanyl 4 micrograms. Today we will remove his Jeffery and [facility] dropped his rate controlled him on CPAP. We will trend CBC given recent drop in H/H. 12/27: Patient remains intubated on CMV tidal volume 550, rate 12, PEEP 8 on 30% FiO2 at the time my examination. Patient's TPN will be changed to PPN. Adebayo dueñas's fentanyl drip will be changed to IV push fentanyl and have a permacath placed today and midline. Patient was placed on a spontaneous breathing trial was switched back to CMV prior to procedure. 12/28: Patient on fentanyl but awake and follows commands. At the time of my examination he was on a CPAP trial and is scheduled to receive HD today. s/o permacath and PICC placement with vascular yesterday. His blood culture grew Prevotella and addition to Streptococcus bovis. This evening Dr. Spicer attempted to extubate the patient and his heart rate went to the 180s. Stat EKG obtained and cardiology consulted. 12/29: Patient was started on amiodarone IV for A. fib RVR yesterday and today he is more rate controlled into the 70s and 80s. Patient was extubated yesterday and is currently on Ventimask. Patient will be transferred to [facility]. Patient continues to be n.p.o. with TPN and NG tube to LIS. He is hypokalemic today which was repleted. 12/30; patient was on IV amiodarone for treatment with RVR, rate is controlled. Patient was off oxygen. patient is n.p.o. and on TPN. Surgery is following the patient. 12/31: Patient was intubated overnight for respiratory distress and this morning on examination he was on assist control tidal volume 450, rate 20, PEEP 6, 100% FiO2 and RT was getting a ABG to adjust vent settings. Patient had a acute bump in WBC and per ID recommendations we will obtain a CT abdomen/pelvis if leukocytosis persist. Patient is on TPN and sedated with Levophed. Patient is also on vasopressor support with Levophed. Per surgery his ileus is resolving however will maintain OGT to LIWS. 01/01: Patient was started on a vasopressin yesterday late evening. This morning patient is on 20 mcg of Levophed and 0.03 vasopressin and sedated on 20 mcg of propofol. Patient WBC increased today and he is hypokalemic. We will treat hyperkalemia. Patient had a CT chest and abdomen/pelvis pending. The time examination total of 450, rate 20, PEEP of 6 and 35 percent FiO2. Per RN, Dr Pollock has stated that the patient will be returning to the OR today for likely anastomosis seen on CT abdomen/pelvis. 01/02: Patient noted, WBC improving, but noted to have anemia, will transfuse additional unit of Blood and repeat H/H. continue supportive care. 01/03: Continue to wean pressors, ABX PER ID, patient to return to OR today for washout and possible closure, CONTINUE TPN 01/04: Continues to show some improvement. Today is POD#12 s/p ex lap with extensive lysis of adhesions and two small bowel resections with primary anastamosis for SBO with necrotic segment small bowel. POD#3 s/p ex lap, resection of perforated anastamosis, washout and abthera wound vac placement. POD#1 s/p ex lap with right hemicolectomy. Surgery planning to take back to the OR on Saturday with the hope to anastamos ileum to transverse colon and close abdomen. keep NGT to suction. Pt in deep sedation due to open abdomen. Per ID - Continue IV Zosyn, renally dosed for Strep bacteremia treatment till 01/06/2021 -On TPN 01/05: Patient continues on HD, anticipate return to OR tomorrow for closure and anastemosis. Continues with deep sedation due to open abdomen 01/06: Continue supportive care, monitor pressures and electrolytes. He is post op Exploratory laparotomy, 2. Jejunal colonic anastomosis,3. Segmental small bowel resection and anastemosis closure today. Continue wound vac 01/07: Continue supportive care, Today is POD#15 s/p ex lap with extensive lysis of adhesions and two small bowel resections with primary anastamosis for SBO wit h necrotic segment small bowel. POD#6 s/p ex lap, resection of perforated anastamosis, washout and abthera wound vac placement. POD#4 s/p ex lap with right hemicolectomy. POD #1 exploratory laparotomy, 2. Jejunal colonic anastomosis,3. Segmental small bowel resection. Continue to monitor and sruthi ect electrolytes. Patient remains on fentanyl and TPN with lipids. Still hypoactive bowel sounds. 16: Patient now extubated, asked when he can go home, Still lethargic. Continue wound management, wound vac, Will need Rehab eval prior to discharge. 01/09: Patient remains on TPN, was started on labetalol drip per cardiology, patient had uncontrolled hypertension today however he cannot be given p.o. medications ileus resolves per surgery. Patient received hemodialysis today. NG tube remains to low intermittent suction. 01/10: Patient has some leukocytosis, slight hypokalemia and hyponatremia, metabolic acidosis. NG tube to LIWS, continue TPN. Patient will be downgraded to IMCU today. [facility] is working on placement. Will change frequency of hydralazine and discontinue labetalol drip. We will obtain a.m. BMP/mag/Phos and CBC. Infectious disease will like to start Zosyn if leukocytosis continues to worsen. 01/11: Patient leukocytosis has slightly improved potassium with in normal limits and other electrolytes are elevated but patient is scheduled for HD today. Remains on RA and A,A,Ox4. BP better controlled but remains elevated and we will increase clonidine dose. 01/12/2021; patient's blood pressure is better after dialysis and as needed IV medications and clonidine patch. Patient is followed by general surgery. Patient was alert and oriented and asked when he is going home. 01/13: Surgery is concerned about a leak at his anastamosis given increased output and will treat as controlled fistula and start an octreotide drip. And per surgery if he requires operative intervention will likely need to be left in discontinuity and eventual ileostomy as he has already failed two anastamoses. Patient still has tongue swelling and slurred speech. He is on Benadryl. 01/14: Patient's tongue swelling is improved, patient is alert and oriented, CAM ICU negative. Continue NG tube to low wall intermittent suction. Leukocytosis is improving. Hypomagnesemia resolved. Epogen with HD 01/15: Patient tongue swelling is much improved, bladder scan completed by bedside RN and he needed to be straight cathed. NGT output decreased. Leukocytosis improving. Patient has been having episodes of hypoglycemia during the day and he is on cyclic TPN, Lantus rescheduled to nightly and dosage decreased. 01/16: Continue management per ID and surgery. Will defer repeat CT of the abdomen to the team surgery has been approved by nephrology. Continue current diet and advance all to ice if okay with surgery discussed with nursing staff. 01/17: Discussed surgical recommendation of strict n.p.o. except for small amount of ice as patient has already failed to anastomosis. And risk for additional surgery with tissues were extremely friable from previous scar. He continues on octreotide drip to slow down GI output HARIS drain remains in place with NG suction for decompression. Patient verbalized understanding although stressed about being discharged. We will continue IMCU care unless otherwise advised by surgery. Prognosis remains guarded continue to monitor electrolytes considering GI output. 01/18: Continue supportive care, BP mildly elevated, continue to monitor, con tinue current therapy, if no return to PO soon may consider Increasing clonidine to 0.3, PO when ok with surgery. 01/19:Continue supportive care, Per ID continue IV Zosyn, plan to stop at 3 weeks from last surgery end date: 01/24/2021. Other management per surgery. Continue TPN. 01/20: Discussed with Surgery, will continue current management. Advised patient of the findings and plan. 01/21: Continue supportive care. Continue management per surgery advance diet when okay with surgery. Plan of care discussed with the patient in detail. 01/22: NG tube to be replaced explained to the patient why this is important. I agree with PT OT discussed with nursing staff very important to let the PT team know that they should manage HARIS drain while patient is ambulating so that he does not come out. Continue current management. Change in ocreotide to q8h and d/c drip NOTED 01/23: Continue supportive care, HD today, counselling provided to the patient on compliance with medical management 01/24: Replace NGT, Continue management per Surgery. POD 32. Mild hypokalemia noted, will replace. 01/25: Brief summary patient is a 60-year-old male admitted with abdominal pain and noted to have necrotic bowel concerning for PD associated peritonitis. Catheter was placed to convert to HD. Patient also underwent multiple surgical interventions. Initial cultures showed Streptococcus bovis bacteremia and Prevotella bacteremia a COLIN was without vegetations repeat blood cultures have b een negative. Part of the surgery is included ex lap, resection of perforated anastomosis, washout and a better wound VAC placement on 01/01. While progress has remained slow if has indeed shown some improvement. Patient is agitated about being in the hospital but understands the care management been provided his vital to his health and to prevent further surgeries. The NG tube has been pulled out 2 days ago he vehemently refused the tube being placed back but after a day of nausea with associated vomiting he was accepting of the chest tube to put back. He continues on TPN. We will continue to monitor electrolytes and correct as needed. This a.m. and erroneous blood was obtained likely from the same line as TPN repeat was done which showed normalizing factors. Patient completed antibiotics on 01/25/2020 . 01/26 Patient with severe sepsis with septic shock, small bowel obstruction, necrotic bowel s/p multiple surgeries. He complains of abdominal pain. No fever currently. He asked me when is he going home and i explained that he is not yet stable for discharge 01/27 Patient with severe sepsis with septic shock, small bowel obstruction, necrotic bowel s/p multiple surgeries. He complains of abdominal pain. No fever currently. Paroxysmal atrial fib managed by cardiology 01/28 Patient with severe sepsis with septic shock, small bowel obstruction, necrotic bowel s/p multiple surgeries. No fever currently. No abd pain currently. I discussed with Surgeon, Dr. Pollock. Continue current management. He also has paroxysmal afib, managed by Cardiology. 01/29 Patient with severe sepsis with septic shock, small bowel obstruction, necrotic bowel s/p multiple surgeries. No fever currently. No abd pain currently. I discussed with Surgeon, Dr. Pollock, yesterday. Continue current management. He also has paroxysmal afib, managed by Cardiology. He is on Metoprolol, Digoxin, Clonidine 01/30 Patient with severe sepsis with septic shock, small bowel obstruction, n ecrotic bowel s/p multiple surgeries. Patient is a 60-year-old male admitted with abdominal pain and noted to have necrotic bowel concerning for PD associated peritonitis. Catheter was placed to convert to HD. Patient also underwent multiple surgical interventions. Initial cultures showed Strep tococcus bovis bacteremia and Prevotella bacteremia a COLIN was without vegetations repeat blood cultures have been negative. Part of the surgery is included ex lap, resection of perforated anastomosis, washout and a better wound VAC placement on 01/01. While progress has remained slow if has indeed shown some improvement. Patient is agitated about being in the hospital but understands the care management been provided his vital to his health and to prevent further surgeries. He continues on TPN. No fever currently. Less abdominal pain. Discussed with Surgeon, Dr. Pollock, few days ago. Continue current management. He also has paroxysmal afib, managed by Cardiology. He is on Metoprolol, D igoxin, Clonidine. ESRD on dialysis managed by Nephrology. 01/31: Continue HARIS drain suction. Ongoing treatment for anastomotic leak/controlled low output fistula. Maintain LIWS to NGT and monitor output. continue q 8h ocreotide. cont TPN. Defer to general surgery for NG tube discontinuation. 02/01: planned for g-tube placement for gastric decompression. Removed NG tube today. S/p HD -tolerated well : Status post G-tube placement today, resume TPN, patient is off from rectal tube. Continue supportive care and follow general surgery recommendation for discharge planning. Hemodialysis per schedule 02/03 -02/05: cont TPN, G-tube suction, Continue supportive care and follow general surgery recommendation for discharge planning. Hemodialysis per schedule. 02/06: Per surgery Anastamotic leak slowing down and is a controlled fistula. Continue HARIS drain suction. Since HARIS drain has continued to stay about 10ml over the last several days, plan to continue lower dose of octreotide. continue g-tube to drainage for decompression. continue clear liquids and closely monitor HARIS drain output. patient need LTAC placement. Continue to replace electrolytes and monitor phosphate level 02/07/2021; Per surgery Anastamotic leak slowing down and is a controlled fistula. Continue HARIS drain suction. Since HARIS drain has continued to stay about 10ml over the last several days, plan to continue lower dose of octreotide. continue g-tube to drainage for decompression. continue clear liquids and closely monitor HARIS drain output. patient need LTAC placement. Continue to replace electrolytes and monitor phosphate level. 02/08/2021; patient need to be transferred to LTAC. Patient expressed he wants to go home. 02/09/2021; pending LTAC placement 02/10/2021; pending LTAC placement 02/11/2021;case management continues to find a place to take him. General surgery is considering to discharge him home with home health, home TPN. 02/12/2021; patient expressed to go home. Put a consult for case management to arrange home health and home TPN. 02/13/2021; patient does not want to go to rehab or LTAC. I have discussed with case management about the option of getting home health and home PPN. Case management is working on it. History Interval history: Patient was seen and evaluated this morning Patient on TPN, tolerated clear liquid diet HARIS tube in place Hospitalist Physical - Physical exam Narrative exam: Patient was not in cardiopulmonary distress The patient appeared well nourished and normally developed. Vital signs as documented. Head exam is unremarkable. No scleral icterus . Neck is without jugular venous distension, thyromegaly, or carotid bruits. Lungs are clear to auscultation. Cardiac exam reveals regular rate and Rhythm. Abdominal exam reveals clean midline surgical laparatomy wound. HARIS tube in place Extremities are nonedematous and both femoral and pedal pulses are normal. [employer]: Alert and oriented 3. No focal weakness. - Constitutional Vitals: Temp Pulse Resp BP Pulse Ox 97.0 F L 78 20 148/75 97 02/13/21 07:44 02/13/21 07:44 02/13/21 07:44 02/13/21 07:44 02/13/21 07:44 General appearance: Present: no acute distress HEART Score - HEART Score Troponin: Troponin T 0.021 ng/mL (0.00-0.029) 12/22/20 14:38 Results - Labs CBC & Chem 7: 02/07/21 04:35 02/13/21 06:05 Labs: Laboratory Last Values WBC 9.6 K/mm3 (4.5-11.0) 02/07/21 04:35 RBC 2.52 M/mm3 (3.65-5.03) L 02/07/21 04:35 Hgb 8.0 gm/dl (11.8-15.2) L 02/07/21 04:35 Hct 22.5 % (35.5-45.6) L 02/07/21 04:35 MCV 89 fl (84-94) 02/07/21 04:35 MCH 32 pg (28-32) 02/07/21 04:35 MCHC 36 % (32-34) H 02/07/21 04:35 RDW 16.7 % (13.2-15.2) H 02/07/21 04:35 Plt Count 230 K/mm3 (140-440) 02/07/21 04:35 Lymph % (Auto) 12.7 % (13.4-35.0) L 02/07/21 04:35 Crosby % (Auto) 10.2 % (0.0-7.3) H 02/07/21 04:35 Eos % (Auto) 5.0 % (0.0-4.3) H 02/07/21 04:35 Baso % (Auto) 0.5 % (0.0-1.8) 02/07/21 04:35 Lymph # (Auto) 1.2 K/mm3 (1.2-5.4) 02/07/21 04:35 Crosby # (Auto) 1.0 K/mm3 (0.0-0.8) H 02/07/21 04:35 Eos # (Auto) 0.5 K/mm3 (0.0-0.4) H 02/07/21 04:35 Baso # (Auto) 0.0 K/mm3 (0.0-0.1) 02/07/21 04:35 Add Manual Diff Complete 01/10/21 09:26 Total Counted 100 01/10/21 09:26 Seg Neutrophils % 71.6 % (40.0-70.0) H 02/07/21 04:35 Seg Neuts % (Manual) 95.0 % (40.0-70.0) H 01/10/21 09:26 Band Neutrophils % 1.0 % 01/10/21 09:26 Lymphocytes % (Manual) 3.0 % (13.4-35.0) L 01/10/21 09:26 Reactive Lymphs % (Man) 1.0 % 12/29/20 05:16 Monocytes % (Manual) 1.0 % (0.0-7.3) 01/10/21 09:26 Eosinophils % (Manual) 2.0 % (0.0-4.3) 12/29/20 05:16 Metamyelocytes % 2.0 % 12/29/20 05:16 Nucleated RBC % Not Reportable 01/10/21 09:26 Seg Neutrophils # 6.9 K/mm3 (1.8-7.7) 02/07/21 04:35 Seg Neutrophils # Man 17.3 K/mm3 (1.8-7.7) H 01/10/21 09:26 Band Neutrophils # 0.2 K/mm3 01/10/21 09:26 Lymphocytes # (Manual) 0.5 K/mm3 (1.2-5.4) L 01/10/21 09:26 Abs React Lymphs (Man) 0.0 K/mm3 01/10/21 09:26 Monocytes # (Manual) 0.2 K/mm3 (0.0-0.8) 01/10/21 09:26 Eosinophils # (Manual) 0.0 K/mm3 (0.0-0.4) 01/10/21 09:26 Basophils # (Manual) 0.0 K/mm3 (0.0-0.1) 01/10/21 09:26 Metamyelocytes # 0.0 K/mm3 01/10/21 09:26 Myelocytes # 0.0 K/mm3 01/10/21 09:26 Promyelocytes # 0.0 K/mm3 01/10/21 09:26 Blast Cells # 0.0 K/mm3 01/10/21 09:26 WBC Morphology Not Reportable 01/10/21 09:26 Hypersegmented Neuts Not Reportable 01/10/21 09:26 Hyposegmented Neuts Not Reportable 01/10/21 09:26 Hypogranular Neuts Not Reportable 01/10/21 09:26 Smudge Cells Not Reportable 01/10/21 09:26 Toxic Granulation 1+ 01/10/21 09:26 Toxic Vacuolation Not Reportable 01/10/21 09:26 Dohle Bodies Not Reportable 01/10/21 09:26 Pelger-Huet Anomaly Not Reportable 01/10/21 09:26 Lamar Rods Not Reportable 01/10/21 09:26 Platelet Estimate Consistent w auto 01/10/21 09:26 Clumped Platelets Not Reportable 01/10/21 09:26 Plt Clumps, EDTA Not Reportable 01/10/21 09:26 Large Platelets Not Reportable 01/10/21 09:26 Giant Platelets Not Reportable 01/10/21 09:26 Platelet Satelliting Not Reportable 01/10/21 09:26 Plt Morphology Comment Not Reportable 01/10/21 09:26 RBC Morphology Not Reportable 01/10/21 09:26 Dimorphic RBCs Not Reportable 01/10/21 09:26 Polychromasia Not Reportable 01/10/21 09:26 Hypochromasia Not Reportable 01/10/21 09:26 Poikilocytosis Not Reportable 01/10/21 09:26 Anisocytosis 1+ 01/10/21 09:26 Microcytosis Not Reportable 01/10/21 09:26 Macrocytosis Not Reportable 01/10/21 09:26 Spherocytes Not Reportable 01/10/21 09:26 Pappenheimer Bodies Not Reportable 01/10/21 09:26 Sickle Cells Not Reportable 01/10/21 09:26 Target Cells Not Reportable 01/10/21 09:26 Tear Drop Cells Not Reportable 01/10/21 09:26 Ovalocytes Not Reportable 01/10/21 09:26 Helmet Cells Not Reportable 01/10/21 09:26 Washburn-Tolstoy Bodies Not Reportable 01/10/21 09:26 Donora Rings Not Reportable 01/10/21 09:26 Jenny Cells Not Reportable 01/10/21 09:26 Bite Cells Not Reportable 01/10/21 09:26 Crenated Cell Not Reportable 01/10/21 09:26 Elliptocytes Not Reportable 01/10/21 09:26 Acanthocytes (Spur) Not Reportable 01/10/21 09:26 Rouleaux Not Reportable 01/10/21 09:26 Hemoglobin C Crystals Not Reportable 01/10/21 09:26 Schistocytes Not Reportable 01/10/21 09:26 Malaria parasites Not Reportable 01/10/21 09:26 Lucas Bodies Not Reportable 01/10/21 09:26 Hem Pathologist Commnt No 01/10/21 09:26 PT 16.9 Sec. (12.2-14.9) H 01/01/21 12:45 INR 1.39 (0.87-1.13) H 01/01/21 12:45 APTT 25.1 Sec. (24.2-36.6) 12/22/20 14:38 ABG pH 7.345 pH Units (7.350-7.450) L 01/07/21 17:14 POC ABG pCO2 41.4 mmHg (32.0-48.0) 01/07/21 03:07 ABG pCO2 40.3 mm Hg 01/07/21 17:14 POC ABG pO2 94.5 mmHg (83-108) 01/07/21 03:07 ABG pO2 67.4 mm Hg (80.0-90.0) L 01/07/21 17:14 POC ABG HCO3 22.7 01/07/21 03:07 ABG HCO3 21.5 mmol/L (20.0-26.0) 01/07/21 17:14 ABG O2 Saturation 94.3 % (95.0-99.0) L 01/07/21 17:14 ABG O2 Content 11.6 (0.0-44) 01/07/21 17:14 POC ABG Base Excess -2.7 01/07/21 03:07 ABG Base Excess -3.9 mmol/L (-2.0-3.0) L 01/07/21 17:14 ABG Hemoglobin 8.9 gm/dl (14.0-18.0) L 01/07/21 17:14 ABG Oxyhemoglobin 96.6 (94-98) 01/07/21 03:07 ABG Carboxyhemoglobin 1.5 % (0.0-5.0) 01/07/21 17:14 ABG Methemoglobin 0.6 % (0.0-1.5) 01/07/21 17:14 ABG Sodium 135.6 mmol/L (136.0-145.0) L 01/07/21 03:07 ABG Potassium 4.0 mmol/L (3.40-4.50) 01/07/21 03:07 ABG Chloride 102.0 mmol/L (98-107) 01/07/21 03:07 ABG Glucose 181 mg/dL (65-95) H 01/07/21 03:07 Oxyhemoglobin 92.3 % (95.0-99.0) L 01/07/21 17:14 Carboxyhemoglobin 0.7 (0.5-1.5) 01/07/21 03:07 FiO2 21 % 01/07/21 17:14 FiO2 % 45.0 01/07/21 03:07 Sodium 138 mmol/L (137-145) 02/13/21 06:05 Potassium 4.3 mmol/L (3.6-5.0) 02/13/21 06:05 Chloride 102.3 mmol/L (98-107) 02/13/21 06:05 Carbon Dioxide 20 mmol/L (22-30) L 02/13/21 06:05 Anion Gap 20 mmol/L 02/13/21 06:05 BUN 80 mg/dL (9-20) H 02/13/21 06:05 Creatinine 11.5 mg/dL (0.8-1.3) H 02/13/21 06:05 Estimated GFR 5 ml/min 02/13/21 06:05 BUN/Creatinine Ratio 7 % 02/13/21 06:05 Glucose 111 mg/dL (75-100) H 02/13/21 06:05 POC Glucose 110 mg/dL (70-105) H 02/13/21 00:27 Lactic Acid 1.10 mmol/L (0.7-2.0) 01/14/21 05:39 Calcium 9.2 mg/dL (8.4-10.2) 02/13/21 06:05 Phosphorus 5.00 mg/dL (2.5-4.5) H D 02/13/21 06:05 Magnesium 1.70 mg/dL (1.7-2.3) 02/13/21 06:05 Total Bilirubin 0.50 mg/dL (0.1-1.2) 02/13/21 06:05 AST 14 units/L (5-40) 02/13/21 06:05 ALT 20 units/L (7-56) 02/13/21 06:05 Alkaline Phosphatase 149 units/L (35-129) H 02/13/21 06:05 Ammonia 30.0 umol/L (25-60) 12/22/20 14:38 Troponin T 0.021 ng/mL (0.00-0.029) 12/22/20 14:38 Total Protein 5.9 g/dL (6.3-8.2) L 02/13/21 06:05 Albumin 3.2 g/dL (3.9-5) L 02/13/21 06:05 Albumin/Globulin Ratio 1.2 % 02/13/21 06:05 Triglycerides 72 mg/dL (2-149) 01/30/21 04:15 Lipase 41 units/L (13-60) 12/22/20 14:38 Procalcitonin > 200.00 ng/mL (<0.15) 12/24/20 15:06 TSH 1.470 mlU/mL (0.270-4.200) 12/28/20 19:44 Arterial Blood Glucose 181 mg/dL (65-95) H 01/07/21 03:07 Arterial Blood Ionized Calcium 4.3 mg/dL (4.6-5.3) L 01/07/21 03:07 Urine Color Yellow (Yellow) 12/22/20 18:53 Urine Turbidity Clear (Clear) 12/22/20 18:53 Urine pH 7.0 (5.0-7.0) 12/22/20 18:53 Ur Specific Primrose 1.012 (1.003-1.030) 12/22/20 18:53 Urine Protein >500 mg/dL (Negative) 12/22/20 18:53 Urine Glucose (UA) Neg mg/dL (Negative) 12/22/20 18:53 Urine Ketones Neg mg/dL (Negative) 12/22/20 18:53 Urine Blood Neg (Negative) 12/22/20 18:53 Urine Nitrite Neg (Negative) 12/22/20 18:53 Urine Bilirubin Neg (Negative) 12/22/20 18:53 Urine Urobilinogen < 2.0 mg/dL (<2.0) 12/22/20 18:53 Ur Leukocyte Esterase Neg (Negative) 12/22/20 18:53 Urine WBC (Auto) < 1.0 /HPF (0.0-6.0) 12/22/20 18:53 Urine RBC (Auto) 1.0 /HPF (0.0-6.0) 12/22/20 18:53 Fluid Type Dialysate 12/22/20 Unknown Fluid Color Colorless 12/22/20 Unknown Fluid Appearance Cloudy 12/22/20 Unknown Fluid WBC 208 /mm3 12/22/20 Unknown Fluid RBC 45 /mm3 12/22/20 Unknown Fluid Seg Neutrophils 82.0 % 12/22/20 Unknown Fluid Lymphocytes 11.0 % 12/22/20 Unknown Fluid Reactive Lymphs 0 % 12/22/20 Unknown Fluid Monocytes 7.0 % 12/22/20 Unknown Fluid Eosinophils 0 % 12/22/20 Unknown Fluid Basophils 0 % 12/22/20 Unknown Random Vancomycin 13.7 ug/mL (0-40.0) 12/26/20 Unknown Digoxin 0.9 ng/mL (0.9-2.0) 02/04/21 05:40 Hepatitis A IgM Ab Non-reactive (NonReactive) 02/02/21 12:41 Hep Bs Antigen Non-reactive (Negative) 02/02/21 12:41 Hep B Core IgM Ab Non-reactive (NonReactive) 02/02/21 12:41 Hepatitis C Antibody Non-reactive (NonReactive) 02/02/21 12:41 Blood Type A POSITIVE 01/06/21 07:10 Antibody Screen Negative 01/06/21 07:10 Crossmatch See Detail 01/06/21 07:10 Jeffery/IV: Voiding Method Toilet Active Medications - Current Medications Current Medications: Generic Name Dose Route Start Last Admin Trade Name Freq PRN Reason Stop Dose Admin Acetaminophen 650 mg 12/31/20 15:30 01/21/21 05:28 Acetaminophen 650 Mg Rect Supp NE 650 mg Q6H PRN Administration Non Cardiac Pain or Temp>100.5 Clonidine HCl 0.2 mg 01/11/21 10:00 02/08/21 10:00 Clonidine Tts 0.2 Mg/24 Hr Patch TD Not Given We THOMAS Dextrose 50 ml 01/14/21 17:59 01/18/21 15:10 Dextrose 50% In Water (25gm) 50 Ml Syringe IV 20 ml Q30MIN PRN Administration Hypoglycemia Protocol Digoxin 0.125 mg 02/04/21 10:00 02/12/21 12:42 Digoxin 0.125 Mg Tab PO 0.125 mg Q48HR THOMAS Administration Diphenhydramine HCl 50 mg 01/20/21 10:10 02/01/21 14:15 Diphenhydramine 50 Mg/Ml Vial IV 50 mg Q6H PRN Administration Itching Diphenoxylate HCl/Atropine 1 tab 02/06/21 18:00 02/13/21 06:17 Diphenoxylate/Atropine Tab PO 1 tab Q6H THOMAS Administration Famotidine 10 mg 12/24/20 13:00 02/12/21 22:06 Famotidine 20 Mg/2 Ml Inj IV 10 mg BID THOMAS Administration Fluticasone Propionate 50 mcg 02/07/21 10:00 02/12/21 21:18 Fluticasone Propionate Nasal [employer] 16 Gm NS Not Given QDAY [facility] Haloperidol Lactate 5 mg 12/29/20 14:16 01/22/21 23:56 Haloperidol Lactate 5 Mg/1 Ml Inj IV 5 mg Q12H PRN Administration Agitation Heparin Sodium (Porcine) 5,000 unit 12/24/20 10:00 02/12/21 22:06 Heparin 5,000 Unit/1 Ml Vial SUB-Q 5,000 unit Q12HR THOMAS Administration Hydralazine HCl 10 mg 01/10/21 14:00 02/13/21 06:11 Hydralazine 20 Mg/1 Ml Inj IV 10 mg Q4HR THOMAS Administration Hydrocortisone Acetate 1 applic 02/01/21 18:43 Hydrocortisone 1% Cream 28.4gm TP Q8H PRN Skin Irritation Hydromorphone HCl 0.25 mg 01/09/21 10:53 02/13/21 10:39 Hydromorphone 1 Mg/1 Ml Inj IV 0.25 mg Q6H PRN Administration Pain , Severe (7-10) Sodium Chloride 100 mls @ 999 mls/hr 01/27/21 18:37 Nacl 0.9% IV [place] PRN Hypotension Amino Acids/Electrolytes/Dextrose 2,016 mls @ 84 mls/hr 02/12/21 20:00 20:53 Tpn Adult IV 02/13/21 19:59 84 mls/hr [email or web address] [facility] Administration Protocol Amino Acids/Electrolytes/Dextrose 2,016 mls @ 84 mls/hr 02/13/21 20:00 Tpn Adult IV 02/14/21 19:59 [email or web address] [facility] Protocol Fat Emulsion Intravenous 250 mls @ 21 mls/hr 02/13/21 20:00 Intralipid 20% IV 02/14/21 08:00 [email or web address] [facility] Insulin Glargine 5 units 01/18/21 22:00 02/12/21 22:06 Insulin Glargine 100 Units/Ml SUB-Q 5 units QHS THOMAS Administration Insulin Human Lispro 0 unit 01/03/21 12:00 02/13/21 00:45 Insulin Lispro 100 Unit/Ml SUB-Q Not Given Q6HR [facility] Protocol Metoprolol Tartrate 5 mg 12/30/20 12:00 02/13/21 06:11 Metoprolol Tartrate 5 Mg/5 Ml Inj IV 5 mg Q4HR [facility] Administration Morphine Sulfate 2 mg 02/02/21 12:00 02/03/21 13:31 Morphine 2 Mg/1 Ml Inj IV 2 mg Q3H PRN Administration Pain, Moderate (4-6) Ondansetron HCl 4 mg 01/25/21 11:56 02/08/21 12:44 Ondansetron 4 Mg/2 Ml Inj IV 4 mg Q4H PRN Administration Nausea And Vomiting Scopolamine 1 each 01/15/21 11:00 02/11/21 09:55 Scopolamine Transdermal Patch 72 Hr TD 1 each Q3D THOMAS Administration Sodium Chloride 10 ml 12/22/20 22:00 02/12/21 22:05 Sodium Chloride 0.9% 10 Ml Flush Syringe IV 10 ml BID THOMAS Administration Sodium Chloride 10 ml 12/22/20 19:42 01/29/21 02:08 Sodium Chloride 0.9% 10 Ml Flush Syringe IV 10 ml PRN PRN Administration LINE FLUSH Nutrition/Malnutrition Assess - Dietary Evaluation Nutrition/Malnutrition Findings: Nutrition Notes Start: 12/24/20 12:36 Freq: Status: Active Protocol: Document 02/13/21 09:05 [email or web address] (Rec: 02/13/21 09:10 JOSE [email or web address]) Nutrition Notes Initial or Follow up Reassessment Current Diagnosis CKD (stage V CKD),Sepsis, Hypertension,Heart Failure, Small Bowel Obstruction Other Pertinent Diagnosis onHD, s/p exp lap, s/p bowel resections, afib Current Diet CPN at 84 ml/hr+ Clear Liquids Labs/Tests CO2 - 20 Phos 5 BUN 80 Cr 11.5 Pertinent Medications Reviewed Height 5 ft 7 in Weight 84 kg [place] Body Weight (kg) 67.27 BMI 29.0 Weight Status Overweight Subjective/Other Information Day 50 TPN. Percent of energy/protein needs met: 85% energy 100% pro Burn Absent Trauma Absent #2 Nutrition Diagnosis Increased nutrient needs ( specify in comment below) Diagnosis Progress(for reassessment Continues documentation) #1 Nutrition Diagnosis Inadequate oral intake Diagnosis Progress(for reassessment Continues documentation) Is patient on ventilator? No Is Patient Ambulatory and/or Out of Bed Yes REE-([facility]-ambulatory/OOB) [ [id number] [id number]] Calculation Used for Recommendations [facility] Additional Notes Pro needs 1.2-1.3g/k- 109g/day Fluid needs per MD. Nutrition Intervention Nutrition Support: Continue CPN at 84 ml/hr: MVI, Lipids, 60mEq K, 75%/25% chloride/acetate, 0mmol Phos, 5mEq Mg. Osmolality: 1618. Kcal 2,130 Protein (gm) 110 Carbohydrates (gm) 350 Fat (gm) 50 Fluid (mL) 2,266 Fiber (gm) 0 Goal #1 Meet at least 75% of estimated energy and protein needs via CPN Follow-Up By: 02/14/21 Additional Comments Labs in am: BMP, Mg, Phos
--- NOTE | 2021-02-13 14:09 | Progress Note ---
Assessment and Plan This is a 60 YO Male with ESRD on PD, GERD, Crohn's Disease, Nicotine Dependence, HTN, Systolic CHF(EF 35%) who presented to the emergency department on 12/22 with complaints of abdominal pain which began shortly after eating fast food rated 10/10 which is periumbilical, constant, associated with fever, nausea and multiple sites of vomiting and self-reported inability to undergo PD. In the emergency room patient underwent a CT scan of the abdomen/pelvis which revealed evidence of partial small bowel obstruction, symptoms were consistent with bacterial peritonitis. Patient was admitted to the hospital service with sepsis, peritonitis, and small bowel obstruction with consults to general surgery, nephrology, infectious disease and [facility]. On 01/06/21 the patient underwent an exploratory laparotomy, jejunal colonic anastomosis, and segmental small bowel resection. ABG's (01/07/21): pH 7.345 pH POC ABG pCO2 41.4 mmHg ABG pCO2 40.3 mm Hg POC ABG pO2 94.5 mmHg ABG pO2 67.4 mm Hg POC ABG HCO3 22.7 ABG O2 Saturation 94.3 % Patient Awake. on room air. O2 saturation 98%. No acute respiratory distress. Patient afebrile. No leukocytosis. Blood pressure 121/56. Chest x-ray 01/03/21 reported There is decreased inspiration compared to yesterday's exam. Hazy opacity in the right perihilar region and larger area of infiltration in the left lower lung appears stable given differences in the level of inspiration. No large pleural effusion or pneumothorax. Patient presently on s/c heparin, famotidine Recommend to continue incentive spirometry. - Patient Problems (1) Nicotine dependence Current Visit: Yes Status: Acute Qualifiers: Nicotine product type: cigarettes Substance use status: in withdrawal Qualified Code(s): F17.213 - Nicotine dependence, cigarettes, with withdrawal Plan to address problem: Counseled patient to stop smoking. (2) SOB (shortness of breath) Current Visit: No Status: Acute Plan to address problem: Improved. Patient resting on room air at this time. O2 saturation 98%. (3) Atrial fibrillation Current Visit: Yes Status: Acute Plan to address problem: Management as per cardiology. (4) CHF (congestive heart failure) Current Visit: No Status: Acute Qualifiers: Heart failure chronicity: chronic Plan to address problem: Management as per cardiology. (5) Small bowel obstruction Current Visit: Yes Status: Acute Plan to address problem: On 01/06/21 the patient underwent an exploratory laparotomy, jejunal colonic anastomosis, and segmental small bowel resection. Management as per surgery. Continue incentive spirometry (6) Small intestinal gangrene Current Visit: Yes Status: Acute Plan to address problem: On 01/06/21 the patient underwent an exploratory laparotomy, jejunal colonic anastomosis, and segmental small bowel resection. Management as per surgery. Continue incentive spirometry (7) Accelerated hypertension Current Visit: No Status: Acute Plan to address problem: Management as per primary care. (8) Acute on chronic kidney disease, stage 3 Current Visit: No Status: Acute Plan to address problem: Management as per nephrology. Subjective Date of service: 02/13/21 Principal diagnosis: Ac hypoxemic resp failure; Severe Sepsis; Peritonitis; Acute SBO; ESRD; CHF Interval history: This is a 60 YO Male with ESRD on PD, GERD, Crohn's Disease, Nicotine Dependence, HTN, Systolic CHF(EF 35%) who presented to the emergency department on 12/22 with complaints of abdominal pain which began shortly after eating fast food rated 10/10 which is periumbilical, constant, associated with fever, nausea and multiple sites of vomiting and self-reported inability to undergo PD. In the emergency room patient underwent a CT scan of the abdomen/pelvis which revealed evidence of partial small bowel obstruction, symptoms were consistent with bacterial peritonitis. Patient was admitted to the hospital service with sepsis, peritonitis, and small bowel obstruction with consults to general surgery, nephrology, infectious disease and [facility]. On 01/06/21 the patient underwent an exploratory laparotomy, jejunal colonic anastomosis, and segmental small bowel resection. ABG's (01/07/21): pH 7.345 pH POC ABG pCO2 41.4 mmHg ABG pCO2 40.3 mm Hg POC ABG pO2 94.5 mmHg ABG pO2 67.4 mm Hg POC ABG HCO3 22.7 ABG O2 Saturation 94.3 % Patient Awake. on room air. O2 saturation 98%. No acute respiratory distress. Patient afebrile. No leukocytosis. Blood pressure 121/56. Chest x-ray 01/03/21 reported There is decreased inspiration compared to yesterda y's exam. Hazy opacity in the right perihilar region and larger area of infiltration in the left lower lung appears stable given differences in the level of inspiration. No large pleural effusion or pneumothorax. Patient presently on s/c heparin, famotidine Recommend to continue incentive spirometry. Objective Vital Signs - 12hr 02/13/21 02/13/21 04:52 07:44 Temperature 97.4 F L 97.0 F L Pulse Rate 73 78 Respiratory 18 20 Rate Blood Pressure 153/76 148/75 O2 Sat by Pulse 98 97 Oximetry Constitutional: no acute distress, alert, other (00) Eyes: non-icteric ENT: oropharynx moist Neck: supple, no lymphadenopathy, no JVD Effort: normal Ascultation: Bilateral: diminished breath sounds Percussion: Bilateral: not dull Cardiovascular: regular rate and rhythm, other (S1,S2) Gastrointestinal: hypoactive bowel sounds, soft, non-tender, non-distended (protuberant), other (Midline abdominal incision; + PEG) Integumentary: other (Midline abdominal incision ) Extremities: no cyanosis, no edema, pulses normal, no ischemia or petechiae Neurologic: non-focal exam (grossly), pupils equal and round, CN II-XII normal Psychiatric: mood appropriate, affect normal CBC and BMP: 02/07/21 04:35 02/13/21 06:05 ABG, PT/INR, D-dimer: ABG ABG pH 7.345 pH Units (7.350-7.450) L 01/07/21 17:14 POC ABG pCO2 41.4 mmHg (32.0-48.0) 01/07/21 03:07 ABG pCO2 40.3 mm Hg 01/07/21 17:14 POC ABG pO2 94.5 mmHg (83-108) 01/07/21 03:07 ABG pO2 67.4 mm Hg (80.0-90.0) L 01/07/21 17:14 POC ABG HCO3 22.7 01/07/21 03:07 ABG O2 Saturation 94.3 % (95.0-99.0) L 01/07/21 17:14 PT/INR, D-dimer PT 16.9 Sec. (12.2-14.9) H 01/01/21 12:45 INR 1.39 (0.87-1.13) H 01/01/21 12:45 Abnormal lab findings: Abnormal Labs 12/22/20 12/22/20 12/22/20 14:38 14:38 14:38 WBC RBC Hgb 11.2 L Hct 35.0 L MCV MCHC RDW 16.7 H Plt Count Lymph % (Auto) [place] % (Auto) Eos % (Auto) Lymph # (Auto) [place] # (Auto) Eos # (Auto) Seg Neutrophils % Seg Neuts % (Manual) 94.0 H Lymphocytes % (Manual) 5.0 L Monocytes % (Manual) Seg Neutrophils # Seg Neutrophils # Man Lymphocytes # (Manual) 0.3 L Monocytes # (Manual) PT INR ABG pH POC ABG pCO2 POC ABG pO2 ABG pO2 ABG HCO3 ABG O2 Saturation ABG Base Excess ABG Hemoglobin ABG Oxyhemoglobin ABG Sodium ABG Potassium ABG Chloride ABG Glucose Oxyhemoglobin Sodium Potassium Chloride Carbon Dioxide BUN 58 H Creatinine 13.2 H Glucose 113 H POC Glucose Lactic Acid 3.60 H* Calcium Phosphorus Magnesium Total Bilirubin 1.30 H AST ALT Alkaline Phosphatase 155 H Total Protein Albumin Triglycerides Arterial Blood Glucose Arterial Blood Ionized Calcium Digoxin Crossmatch 12/22/20 12/22/20 12/23/20 16:26 17:47 05:22 WBC RBC Hgb Hct MCV MCHC RDW Plt Count Lymph % (Auto) [place] % (Auto) Eos % (Auto) Lymph # (Auto) [place] # (Auto) Eos # (Auto) Seg Neutrophils % Seg Neuts % (Manual) Lymphocytes % (Manual) Monocytes % (Manual) Seg Neutrophils # Seg Neutrophils # Man Lymphocytes # (Manual) Monocytes # (Manual) PT INR ABG pH POC ABG pCO2 POC ABG pO2 ABG pO2 ABG HCO3 ABG O2 Saturation ABG Base Excess ABG Hemoglobin ABG Oxyhemoglobin ABG Sodium ABG Potassium ABG Chloride ABG Glucose Oxyhemoglobin Sodium Potassium Chloride Carbon Dioxide BUN Creatinine Glucose POC Glucose Lactic Acid 2.80 H* 3.10 H* 2.30 H* Calcium Phosphorus Magnesium Total Bilirubin AST ALT Alkaline Phosphatase Total Protein Albumin Triglycerides Arterial Blood Glucose Arterial Blood Ionized Calcium Digoxin Crossmatch 12/23/20 12/23/20 12/23/20 05:22 05:22 06:35 WBC 12.1 H RBC Hgb 11.0 L Hct 33.7 L MCV MCHC RDW 16.9 H Plt Count Lymph % (Auto) [place] % (Auto) Eos % (Auto) Lymph # (Auto) [place] # (Auto) Eos # (Auto) Seg Neutrophils % Seg Neuts % (Manual) 93.0 H Lymphocytes % (Manual) 1.0 L Monocytes % (Manual) Seg Neutrophils # Seg Neutrophils # Man 11.3 H Lymphocytes # (Manual) 0.1 L Monocytes # (Manual) PT INR ABG pH POC ABG pCO2 POC ABG pO2 ABG pO2 ABG HCO3 ABG O2 Saturation ABG Base Excess ABG Hemoglobin ABG Oxyhemoglobin ABG Sodium ABG Potassium ABG Chloride ABG Glucose Oxyhemoglobin Sodium Potassium 5.7 H D Chloride Carbon Dioxide BUN 73 H Creatinine 14.2 H Glucose POC Glucose Lactic Acid 2.30 H* Calcium 7.9 L Phosphorus Magnesium Total Bilirubin 1.40 H AST 119 H ALT 130 H Alkaline Phosphatase 183 H Total Protein 6.1 L Albumin 3.6 L Triglycerides Arterial Blood Glucose Arterial Blood Ionized Calcium Digoxin Crossmatch 12/23/20 12/23/20 12/23/20 11:40 13:53 16:47 WBC RBC Hgb 10.0 L Hct 30.4 L MCV MCHC RDW Plt Count Lymph % (Auto) [place] % (Auto) Eos % (Auto) Lymph # (Auto) [place] # (Auto) Eos # (Auto) Seg Neutrophils % Seg Neuts % (Manual) Lymphocytes % (Manual) Monocytes % (Manual) Seg Neutrophils # Seg Neutrophils # Man Lymphocytes # (Manual) Monocytes # (Manual) PT INR ABG pH POC ABG pCO2 POC ABG pO2 137.5 H ABG pO2 ABG HCO3 ABG O2 Saturation ABG Base Excess ABG Hemoglobin 9.7 L ABG Oxyhemoglobin ABG Sodium 134.1 L ABG Potassium 6.6 H ABG Chloride ABG Glucose 103 H Oxyhemoglobin Sodium Potassium Chloride Carbon Dioxide BUN Creatinine Glucose POC Glucose Lactic Acid Calcium Phosphorus Magnesium Total Bilirubin AST ALT Alkaline Phosphatase Total Protein Albumin Triglycerides Arterial Blood Glucose 103 H Arterial Blood Ionized Calcium 3.8 L Digoxin Crossmatch See Detail 12/23/20 12/23/20 12/24/20 20:35 20:40 01:20 WBC RBC Hgb Hct MCV MCHC RDW Plt Count Lymph % (Auto) [place] % (Auto) Eos % (Auto) Lymph # (Auto) [place] # (Auto) Eos # (Auto) Seg Neutrophils % Seg Neuts % (Manual) Lymphocytes % (Manual) Monocytes % (Manual) Seg Neutrophils # Seg Neutrophils # Man Lymphocytes # (Manual) Monocytes # (Manual) PT INR ABG pH 7.252 L POC ABG pCO2 POC ABG pO2 ABG pO2 50.1 L ABG HCO3 ABG O2 Saturation 81.1 L ABG Base Excess -5.9 L ABG Hemoglobin 12.1 L ABG Oxyhemoglobin ABG Sodium ABG Potassium ABG Chloride ABG Glucose Oxyhemoglobin 78.6 L Sodium 134 L Potassium 6.9 H* D 6.3 H* Chloride Carbon Dioxide 18 L 20 L BUN 87 H 91 H Creatinine 15.3 H 15.3 H Glucose 103 H POC Glucose Lactic Acid Calcium 6.9 L 7.5 L Phosphorus Magnesium Total Bilirubin AST ALT Alkaline Phosphatase Total Protein Albumin Triglycerides Arterial Blood Glucose Arterial Blood Ionized Calcium Digoxin Crossmatch 12/24/20 12/24/20 12/24/20 04:00 10:29 10:29 WBC RBC 3.49 L Hgb 10.5 L Hct 31.2 L MCV MCHC RDW 17.5 H Plt Count 124 L Lymph % (Auto) 3.7 L [place] % (Auto) 9.8 H Eos % (Auto) Lymph # (Auto) 0.2 L [place] # (Auto) Eos # (Auto) Seg Neutrophils % 85.9 H Seg Neuts % (Manual) Lymphocytes % (Manual) Monocytes % (Manual) Seg Neutrophils # Seg Neutrophils # Man Lymphocytes # (Manual) Monocytes # (Manual) PT INR ABG pH POC ABG pCO2 28.1 L POC ABG pO2 ABG pO2 ABG HCO3 ABG O2 Saturation ABG Base Excess ABG Hemoglobin ABG Oxyhemoglobin ABG Sodium 133.9 L ABG Potassium 5.3 H ABG Chloride 108.0 H ABG Glucose Oxyhemoglobin Sodium Potassium 5.6 H Chloride Carbon Dioxide 19 L BUN 99 H Creatinine 16.9 H Glucose 52 L POC Glucose Lactic Acid Calcium 7.6 L Phosphorus Magnesium Total Bilirubin 3.50 H AST 67 H ALT 71 H Alkaline Phosphatase Total Protein 3.5 L D Albumin 2.1 L Triglycerides Arterial Blood Glucose Arterial Blood Ionized Calcium 4.0 L Digoxin Crossmatch 12/25/20 12/25/20 12/25/20 03:33 04:00 04:00 WBC 3.8 L RBC 2.90 L Hgb 8.6 L Hct 25.7 L MCV MCHC RDW 16.7 H Plt Count 113 L Lymph % (Auto) [place] % (Auto) Eos % (Auto) Lymph # (Auto) [place] # (Auto) Eos # (Auto) Seg Neutrophils % Seg Neuts % (Manual) Lymphocytes % (Manual) Monocytes % (Manual) Seg Neutrophils # Seg Neutrophils # Man Lymphocytes # (Manual) Monocytes # (Manual) PT INR ABG pH 7.544 H POC ABG pCO2 28.2 L POC ABG pO2 62.8 L ABG pO2 ABG HCO3 ABG O2 Saturation ABG Base Excess ABG Hemoglobin 9.3 L ABG Oxyhemoglobin 93.0 L ABG Sodium 130.3 L ABG Potassium ABG Chloride ABG Glucose 97 H Oxyhemoglobin Sodium Potassium Chloride Carbon Dioxide BUN 62 H Creatinine 11.4 H Glucose POC Glucose Lactic Acid Calcium 7.7 L Phosphorus 5.00 H Magnesium Total Bilirubin AST ALT Alkaline Phosphatase Total Protein Albumin Triglycerides Arterial Blood Glucose 97 H Arterial Blood Ionized Calcium 3.9 L Digoxin Crossmatch 12/26/20 12/26/20 12/27/20 04:46 Unknown 03:40 WBC 4.1 L RBC 2.61 L Hgb 7.8 L Hct 23.4 L MCV MCHC RDW 17.1 H Plt Count 119 L Lymph % (Auto) 5.3 L [place] % (Auto) 10.6 H Eos % (Auto) Lymph # (Auto) 0.2 L [place] # (Auto) Eos # (Auto) Seg Neutrophils % 78.8 H Seg Neuts % (Manual) Lymphocytes % (Manual) Monocytes % (Manual) Seg Neutrophils # Seg Neutrophils # Man Lymphocytes # (Manual) Monocytes # (Manual) PT INR ABG pH 7.333 L 7.332 L POC ABG pCO2 POC ABG pO2 ABG pO2 ABG HCO3 26.9 H ABG O2 Saturation ABG Base Excess -2.4 L ABG Hemoglobin 6.8 L 7.2 L ABG Oxyhemoglobin ABG Sodium ABG Potassium ABG Chloride ABG Glucose Oxyhemoglobin 93.0 L 93.1 L Sodium Potassium Chloride Carbon Dioxide BUN Creatinine Glucose POC Glucose Lactic Acid Calcium Phosphorus Magnesium Total Bilirubin AST ALT Alkaline Phosphatase Total Protein Albumin Triglycerides Arterial Blood Glucose Arterial Blood Ionized Calcium Digoxin Crossmatch 12/27/20 12/27/20 12/27/20 06:40 06:40 11:22 WBC 4.4 L RBC 2.49 L Hgb 7.4 L Hct 22.4 L MCV MCHC RDW 17.1 H Plt Count 111 L Lymph % (Auto) 6.7 L [place] % (Auto) 12.6 H Eos % (Auto) Lymph # (Auto) 0.3 L [place] # (Auto) Eos # (Auto) Seg Neutrophils % 77.6 H Seg Neuts % (Manual) Lymphocytes % (Manual) Monocytes % (Manual) Seg Neutrophils # Seg Neutrophils # Man Lymphocytes # (Manual) Monocytes # (Manual) PT INR ABG pH POC ABG pCO2 POC ABG pO2 ABG pO2 ABG HCO3 ABG O2 Saturation ABG Base Excess ABG Hemoglobin ABG Oxyhemoglobin ABG Sodium ABG Potassium ABG Chloride ABG Glucose Oxyhemoglobin Sodium Potassium Chloride Carbon Dioxide BUN 64 H Creatinine 9.8 H Glucose 147 H POC Glucose 134 H Lactic Acid Calcium 8.3 L Phosphorus 5.00 H Magnesium Total Bilirubin 3.70 H AST 72 H ALT Alkaline Phosphatase 142 H Total Protein 5.1 L D Albumin 2.9 L Triglycerides Arterial Blood Glucose Arterial Blood Ionized Calcium Digoxin Crossmatch 12/27/20 12/27/20 12/28/20 17:29 23:31 03:09 WBC RBC Hgb Hct MCV MCHC RDW Plt Count Lymph % (Auto) [place] % (Auto) Eos % (Auto) Lymph # (Auto) [place] # (Auto) Eos # (Auto) Seg Neutrophils % Seg Neuts % (Manual) Lymphocytes % (Manual) Monocytes % (Manual) Seg Neutrophils # Seg Neutrophils # Man Lymphocytes # (Manual) Monocytes # (Manual) PT INR ABG pH 7.474 H POC ABG pCO2 POC ABG pO2 ABG pO2 ABG HCO3 ABG O2 Saturation ABG Base Excess ABG Hemoglobin 7.8 L ABG Oxyhemoglobin ABG Sodium ABG Potassium ABG Chloride ABG Glucose Oxyhemoglobin Sodium Potassium Chloride Carbon Dioxide BUN Creatinine Glucose POC Glucose 121 H 131 H Lactic Acid Calcium Phosphorus Magnesium Total Bilirubin AST ALT Alkaline Phosphatase Total Protein Albumin Triglycerides Arterial Blood Glucose Arterial Blood Ionized Calcium Digoxin Crossmatch 12/28/20 12/28/20 12/28/20 05:37 05:40 05:40 WBC 4.3 L RBC 2.40 L Hgb 7.2 L Hct 21.5 L MCV MCHC RDW 17.4 H Plt Count 112 L Lymph % (Auto) 6.5 L [place] % (Auto) 16.7 H Eos % (Auto) Lymph # (Auto) 0.3 L [place] # (Auto) Eos # (Auto) Seg Neutrophils % 71.1 H Seg Neuts % (Manual) Lymphocytes % (Manual) Monocytes % (Manual) Seg Neutrophils # Seg Neutrophils # Man Lymphocytes # (Manual) Monocytes # (Manual) PT INR ABG pH POC ABG pCO2 POC ABG pO2 ABG pO2 ABG HCO3 ABG O2 Saturation ABG Base Excess ABG Hemoglobin ABG Oxyhemoglobin ABG Sodium ABG Potassium ABG Chloride ABG Glucose Oxyhemoglobin Sodium Potassium Chloride Carbon Dioxide BUN 85 H Creatinine 11.5 H Glucose 132 H POC Glucose 121 H Lactic Acid Calcium 8.2 L Phosphorus Magnesium 2.40 H Total Bilirubin 3.80 H AST 70 H ALT Alkaline Phosphatase 176 H Total Protein 5.0 L Albumin 2.9 L Triglycerides Arterial Blood Glucose Arterial Blood Ionized Calcium Digoxin Crossmatch 12/28/20 12/28/20 12/28/20 11:34 15:00 17:35 WBC RBC Hgb Hct MCV MCHC RDW Plt Count Lymph % (Auto) [place] % (Auto) Eos % (Auto) Lymph # (Auto) [place] # (Auto) Eos # (Auto) Seg Neutrophils % Seg Neuts % (Manual) Lymphocytes % (Manual) Monocytes % (Manual) Seg Neutrophils # Seg Neutrophils # Man Lymphocytes # (Manual) Monocytes # (Manual) PT INR ABG pH 7.461 H POC ABG pCO2 POC ABG pO2 72.2 L ABG pO2 ABG HCO3 ABG O2 Saturation ABG Base Excess ABG Hemoglobin 8.2 L ABG Oxyhemoglobin 93.6 L ABG Sodium 134.1 L ABG Potassium 3.2 L ABG Chloride ABG Glucose 135 H Oxyhemoglobin Sodium Potassium Chloride Carbon Dioxide BUN Creatinine Glucose POC Glucose 137 H 144 H Lactic Acid Calcium Phosphorus Magnesium Total Bilirubin AST ALT Alkaline Phosphatase Total Protein Albumin Triglycerides Arterial Blood Glucose 135 H Arterial Blood Ionized Calcium 4.4 L Digoxin Crossmatch 12/28/20 12/28/20 12/29/20 19:44 Unknown 00:21 WBC RBC Hgb Hct MCV MCHC RDW Plt Count Lymph % (Auto) [place] % (Auto) Eos % (Auto) Lymph # (Auto) [place] # (Auto) Eos # (Auto) Seg Neutrophils % Seg Neuts % (Manual) Lymphocytes % (Manual) Monocytes % (Manual) Seg Neutrophils # Seg Neutrophils # Man Lymphocytes # (Manual) Monocytes # (Manual) PT INR ABG pH 7.474 H POC ABG pCO2 POC ABG pO2 ABG pO2 ABG HCO3 ABG O2 Saturation ABG Base Excess ABG Hemoglobin 7.8 L ABG Oxyhemoglobin ABG Sodium 133.2 L ABG Potassium ABG Chloride ABG Glucose 139 H Oxyhemoglobin Sodium 135 L Potassium Chloride 96.6 L Carbon Dioxide BUN 47 H Creatinine 7.4 H Glucose 130 H POC Glucose 142 H Lactic Acid Calcium 8.3 L Phosphorus Magnesium Total Bilirubin AST ALT Alkaline Phosphatase Total Protein Albumin Triglycerides Arterial Blood Glucose 139 H Arterial Blood Ionized Calcium 4.3 L Digoxin Crossmatch 12/29/20 12/29/20 12/29/20 05:16 05:16 05:26 WBC RBC 2.53 L Hgb 7.7 L Hct 22.8 L MCV MCHC RDW 17.0 H Plt Count 130 L Lymph % (Auto) [place] % (Auto) Eos % (Auto) Lymph # (Auto) [place] # (Auto) Eos # (Auto) Seg Neutrophils % Seg Neuts % (Manual) 79.0 H Lymphocytes % (Manual) 9.0 L Monocytes % (Manual) Seg Neutrophils # Seg Neutrophils # Man Lymphocytes # (Manual) 0.6 L Monocytes # (Manual) PT INR ABG pH POC ABG pCO2 POC ABG pO2 ABG pO2 ABG HCO3 ABG O2 Saturation ABG Base Excess ABG Hemoglobin ABG Oxyhemoglobin ABG Sodium ABG Potassium ABG Chloride ABG Glucose Oxyhemoglobin Sodium Potassium 3.4 L Chloride 96.6 L Carbon Dioxide BUN 59 H Creatinine 8.3 H Glucose 127 H POC Glucose 141 H Lactic Acid Calcium 8.2 L Phosphorus Magnesium Total Bilirubin 3.00 H AST 88 H ALT Alkaline Phosphatase 188 H Total Protein 5.1 L Albumin 2.8 L Triglycerides Arterial Blood Glucose Arterial Blood Ionized Calcium Digoxin Crossmatch 12/29/20 12/29/20 12/29/20 11:33 17:29 23:22 WBC RBC Hgb Hct MCV MCHC RDW Plt Count Lymph % (Auto) [place] % (Auto) Eos % (Auto) Lymph # (Auto) [place] # (Auto) Eos # (Auto) Seg Neutrophils % Seg Neuts % (Manual) Lymphocytes % (Manual) Monocytes % (Manual) Seg Neutrophils # Seg Neutrophils # Man Lymphocytes # (Manual) Monocytes # (Manual) PT INR ABG pH POC ABG pCO2 POC ABG pO2 ABG pO2 ABG HCO3 ABG O2 Saturation ABG Base Excess ABG Hemoglobin ABG Oxyhemoglobin ABG Sodium ABG Potassium ABG Chloride ABG Glucose Oxyhemoglobin Sodium Potassium Chloride Carbon Dioxide BUN Creatinine Glucose POC Glucose 144 H 130 H 117 H Lactic Acid Calcium Phosphorus Magnesium Total Bilirubin AST ALT Alkaline Phosphatase Total Protein Albumin Triglycerides Arterial Blood Glucose Arterial Blood Ionized Calcium Digoxin Crossmatch 12/30/20 12/30/20 12/30/20 05:23 08:15 09:00 WBC RBC Hgb Hct MCV MCHC RDW Plt Count Lymph % (Auto) [place] % (Auto) Eos % (Auto) Lymph # (Auto) [place] # (Auto) Eos # (Auto) Seg Neutrophils % Seg Neuts % (Manual) Lymphocytes % (Manual) Monocytes % (Manual) Seg Neutrophils # Seg Neutrophils # Man Lymphocytes # (Manual) Monocytes # (Manual) PT INR ABG pH POC ABG pCO2 POC ABG pO2 ABG pO2 ABG HCO3 ABG O2 Saturation ABG Base Excess ABG Hemoglobin ABG Oxyhemoglobin ABG Sodium ABG Potassium ABG Chloride ABG Glucose Oxyhemoglobin Sodium 135 L Potassium Chloride 95.9 L Carbon Dioxide BUN 85 H Creatinine 10.6 H Glucose 128 H POC Glucose 135 H 127 H Lactic Acid Calcium 8.3 L Phosphorus Magnesium Total Bilirubin 2.40 H AST 85 H ALT Alkaline Phosphatase 216 H Total Protein 5.3 L Albumin 2.6 L Triglycerides 155 H Arterial Blood Glucose Arterial Blood Ionized Calcium Digoxin Crossmatch 12/30/20 12/30/20 12/30/20 09:00 11:53 15:49 WBC RBC 2.61 L Hgb 7.8 L Hct 23.7 L MCV MCHC RDW 17.3 H Plt Count Lymph % (Auto) [place] % (Auto) Eos % (Auto) Lymph # (Auto) [place] # (Auto) Eos # (Auto) Seg Neutrophils % Seg Neuts % (Manual) Lymphocytes % (Manual) Monocytes % (Manual) Seg Neutrophils # Seg Neutrophils # Man Lymphocytes # (Manual) Monocytes # (Manual) PT INR ABG pH POC ABG pCO2 POC ABG pO2 ABG pO2 ABG HCO3 ABG O2 Saturation ABG Base Excess ABG Hemoglobin ABG Oxyhemoglobin ABG Sodium ABG Potassium ABG Chloride ABG Glucose Oxyhemoglobin Sodium Potassium Chloride Carbon Dioxide BUN Creatinine Glucose POC Glucose 155 H 146 H Lactic Acid Calcium Phosphorus Magnesium Total Bilirubin AST ALT Alkaline Phosphatase Total Protein Albumin Triglycerides Arterial Blood Glucose Arterial Blood Ionized Calcium Digoxin Crossmatch 12/30/20 12/30/20 12/31/20 17:53 23:45 03:56 WBC RBC Hgb Hct MCV MCHC RDW Plt Count Lymph % (Auto) [place] % (Auto) Eos % (Auto) Lymph # (Auto) [place] # (Auto) Eos # (Auto) Seg Neutrophils % Seg Neuts % (Manual) Lymphocytes % (Manual) Monocytes % (Manual) Seg Neutrophils # Seg Neutrophils # Man Lymphocytes # (Manual) Monocytes # (Manual) PT INR ABG pH POC ABG pCO2 POC ABG pO2 49.4 L ABG pO2 ABG HCO3 ABG O2 Saturation ABG Base Excess ABG Hemoglobin 10.3 L ABG Oxyhemoglobin 84.2 L ABG Sodium 133.1 L ABG Potassium ABG Chloride ABG Glucose 173 H Oxyhemoglobin Sodium Potassium Chloride Carbon Dioxide BUN Creatinine Glucose POC Glucose 139 H 173 H Lactic Acid Calcium Phosphorus Magnesium Total Bilirubin AST ALT Alkaline Phosphatase Total Protein Albumin Triglycerides Arterial Blood Glucose 173 H Arterial Blood Ionized Calcium Digoxin Crossmatch 12/31/20 12/31/20 12/31/20 05:07 06:51 06:51 WBC 20.3 H RBC 3.32 L Hgb 9.8 L Hct 30.3 L D MCV MCHC RDW 17.3 H Plt Count Lymph % (Auto) [place] % (Auto) Eos % (Auto) Lymph # (Auto) [place] # (Auto) Eos # (Auto) Seg Neutrophils % Seg Neuts % (Manual) 87.0 H Lymphocytes % (Manual) 10.0 L Monocytes % (Manual) Seg Neutrophils # Seg Neutrophils # Man 17.7 H Lymphocytes # (Manual) Monocytes # (Manual) PT INR ABG pH POC ABG pCO2 POC ABG pO2 ABG pO2 ABG HCO3 ABG O2 Saturation ABG Base Excess ABG Hemoglobin ABG Oxyhemoglobin ABG Sodium ABG Potassium ABG Chloride ABG Glucose Oxyhemoglobin Sodium Potassium 5.2 H D Chloride Carbon Dioxide BUN 62 H Creatinine 8.4 H Glucose 116 H POC Glucose 120 H Lactic Acid Calcium Phosphorus Magnesium 1.60 L Total Bilirubin AST ALT Alkaline Phosphatase Total Protein Albumin Triglycerides Arterial Blood Glucose Arterial Blood Ionized Calcium Digoxin Crossmatch 12/31/20 12/31/20 12/31/20 09:38 12:19 12:22 WBC RBC Hgb Hct MCV MCHC RDW Plt Count Lymph % (Auto) [place] % (Auto) Eos % (Auto) Lymph # (Auto) [place] # (Auto) Eos # (Auto) Seg Neutrophils % Seg Neuts % (Manual) Lymphocytes % (Manual) Monocytes % (Manual) Seg Neutrophils # Seg Neutrophils # Man Lymphocytes # (Manual) Monocytes # (Manual) PT INR ABG pH POC ABG pCO2 POC ABG pO2 ABG pO2 354.0 H ABG HCO3 ABG O2 Saturation 99.6 H ABG Base Excess ABG Hemoglobin 9.1 L ABG Oxyhemoglobin ABG Sodium ABG Potassium ABG Chloride ABG Glucose Oxyhemoglobin Sodium Potassium 5.2 H Chloride Carbon Dioxide BUN Creatinine Glucose POC Glucose 132 H Lactic Acid Calcium Phosphorus Magnesium Total Bilirubin AST ALT Alkaline Phosphatase Total Protein Albumin Triglycerides Arterial Blood Glucose Arterial Blood Ionized Calcium Digoxin Crossmatch 12/31/20 01/01/21 01/01/21 23:23 03:03 05:04 WBC RBC Hgb Hct MCV MCHC RDW Plt Count Lymph % (Auto) [place] % (Auto) Eos % (Auto) Lymph # (Auto) [place] # (Auto) Eos # (Auto) Seg Neutrophils % Seg Neuts % (Manual) Lymphocytes % (Manual) Monocytes % (Manual) Seg Neutrophils # Seg Neutrophils # Man Lymphocytes # (Manual) Monocytes # (Manual) PT INR ABG pH POC ABG pCO2 POC ABG pO2 79.6 L ABG pO2 ABG HCO3 ABG O2 Saturation ABG Base Excess ABG Hemoglobin 9.2 L ABG Oxyhemoglobin ABG Sodium 131.6 L ABG Potassium 5.8 H ABG Chloride ABG Glucose 177 H Oxyhemoglobin Sodium Potassium Chloride Carbon Dioxide BUN Creatinine Glucose POC Glucose 174 H 167 H Lactic Acid Calcium Phosphorus Magnesium Total Bilirubin AST ALT Alkaline Phosphatase Total Protein Albumin Triglycerides Arterial Blood Glucose 177 H Arterial Blood Ionized Calcium Digoxin Crossmatch 01/01/21 01/01/21 01/01/21 07:31 07:31 11:31 WBC 26.1 H RBC 2.95 L Hgb 8.6 L Hct 27.1 L MCV MCHC RDW 18.2 H Plt Count Lymph % (Auto) [place] % (Auto) Eos % (Auto) Lymph # (Auto) [place] # (Auto) Eos # (Auto) Seg Neutrophils % Seg Neuts % (Manual) 96.0 H Lymphocytes % (Manual) 4.0 L Monocytes % (Manual) Seg Neutrophils # Seg Neutrophils # Man 25.1 H Lymphocytes # (Manual) 1.0 L Monocytes # (Manual) PT INR ABG pH POC ABG pCO2 POC ABG pO2 ABG pO2 ABG HCO3 ABG O2 Saturation ABG Base Excess ABG Hemoglobin ABG Oxyhemoglobin ABG Sodium ABG Potassium ABG Chloride ABG Glucose Oxyhemoglobin Sodium Potassium 6.0 H Chloride Carbon Dioxide 21 L BUN 89 H Creatinine 10.5 H Glucose 179 H POC Glucose Lactic Acid Calcium Phosphorus Magnesium Total Bilirubin AST ALT Alkaline Phosphatase Total Protein Albumin Triglycerides Arterial Blood Glucose Arterial Blood Ionized Calcium Digoxin Crossmatch See Detail 01/01/21 01/01/21 01/01/21 11:51 12:45 16:52 WBC RBC Hgb Hct MCV MCHC RDW Plt Count Lymph % (Auto) [place] % (Auto) Eos % (Auto) Lymph # (Auto) [place] # (Auto) Eos # (Auto) Seg Neutrophils % Seg Neuts % (Manual) Lymphocytes % (Manual) Monocytes % (Manual) Seg Neutrophils # Seg Neutrophils # Man Lymphocytes # (Manual) Monocytes # (Manual) PT 16.9 H INR 1.39 H ABG pH POC ABG pCO2 POC ABG pO2 ABG pO2 ABG HCO3 ABG O2 Saturation ABG Base Excess ABG Hemoglobin ABG Oxyhemoglobin ABG Sodium ABG Potassium ABG Chloride ABG Glucose Oxyhemoglobin Sodium Potassium Chloride Carbon Dioxide BUN Creatinine Glucose POC Glucose 157 H 177 H Lactic Acid Calcium Phosphorus Magnesium Total Bilirubin AST ALT Alkaline Phosphatase Total Protein Albumin Triglycerides Arterial Blood Glucose Arterial Blood Ionized Calcium Digoxin Crossmatch 01/01/21 01/01/21 01/01/21 17:58 17:58 20:12 WBC 26.9 H RBC 3.14 L Hgb 9.3 L Hct 29.6 L MCV MCHC RDW 17.5 H Plt Count Lymph % (Auto) [place] % (Auto) Eos % (Auto) Lymph # (Auto) [place] # (Auto) Eos # (Auto) Seg Neutrophils % Seg Neuts % (Manual) 84.0 H Lymphocytes % (Manual) 4.0 L Monocytes % (Manual) 12.0 H Seg Neutrophils # Seg Neutrophils # Man 22.6 H Lymphocytes # (Manual) 1.1 L Monocytes # (Manual) 3.2 H PT INR ABG pH POC ABG pCO2 POC ABG pO2 ABG pO2 ABG HCO3 ABG O2 Saturation ABG Base Excess ABG Hemoglobin ABG Oxyhemoglobin ABG Sodium ABG Potassium ABG Chloride ABG Glucose Oxyhemoglobin Sodium 136 L Potassium 6.2 H* Chloride Carbon Dioxide 21 L BUN 92 H Creatinine 10.8 H Glucose 171 H POC Glucose 288 H Lactic Acid Calcium Phosphorus Magnesium Total Bilirubin 2.10 H AST 223 H ALT 100 H Alkaline Phosphatase 206 H Total Protein 4.8 L Albumin 1.9 L Triglycerides Arterial Blood Glucose Arterial Blood Ionized Calcium Digoxin Crossmatch 01/02/21 01/02/21 01/02/21 00:12 00:45 03:05 WBC RBC Hgb Hct MCV MCHC RDW Plt Count Lymph % (Auto) [place] % (Auto) Eos % (Auto) Lymph # (Auto) [place] # (Auto) Eos # (Auto) Seg Neutrophils % Seg Neuts % (Manual) Lymphocytes % (Manual) Monocytes % (Manual) Seg Neutrophils # Seg Neutrophils # Man Lymphocytes # (Manual) Monocytes # (Manual) PT INR ABG pH POC ABG pCO2 POC ABG pO2 81.8 L ABG pO2 ABG HCO3 ABG O2 Saturation ABG Base Excess ABG Hemoglobin 8.0 L ABG Oxyhemoglobin ABG Sodium 129.8 L ABG Potassium 5.4 H ABG Chloride ABG Glucose 257 H Oxyhemoglobin Sodium 136 L Potassium 5.8 H Chloride 96.6 L Carbon Dioxide BUN 95 H Creatinine 11.2 H Glucose 238 H POC Glucose 223 H Lactic Acid Calcium Phosphorus Magnesium Total Bilirubin AST ALT Alkaline Phosphatase Total Protein Albumin Triglycerides Arterial Blood Glucose 257 H Arterial Blood Ionized Calcium 4.0 L Digoxin Crossmatch 01/02/21 01/02/21 01/02/21 06:25 08:00 08:00 WBC 17.5 H RBC 2.31 L Hgb 6.7 L Hct 22.1 L D MCV 96 H MCHC 30 L RDW 18.4 H Plt Count Lymph % (Auto) [place] % (Auto) Eos % (Auto) Lymph # (Auto) [place] # (Auto) Eos # (Auto) Seg Neutrophils % Seg Neuts % (Manual) Lymphocytes % (Manual) Monocytes % (Manual) Seg Neutrophils # Seg Neutrophils # Man Lymphocytes # (Manual) Monocytes # (Manual) PT INR ABG pH POC ABG pCO2 POC ABG pO2 ABG pO2 ABG HCO3 ABG O2 Saturation ABG Base Excess ABG Hemoglobin ABG Oxyhemoglobin ABG Sodium ABG Potassium ABG Chloride ABG Glucose Oxyhemoglobin Sodium 134 L Potassium 5.3 H Chloride 92.9 L Carbon Dioxide BUN 101 H Creatinine 10.9 H Glucose 560 H* POC Glucose 239 H Lactic Acid Calcium 7.6 L Phosphorus 6.50 H Magnesium Total Bilirubin AST ALT Alkaline Phosphatase Total Protein Albumin Triglycerides Arterial Blood Glucose Arterial Blood Ionized Calcium Digoxin Crossmatch 01/02/21 01/02/21 01/02/21 11:26 15:00 17:57 WBC RBC Hgb Hct MCV MCHC RDW Plt Count Lymph % (Auto) [place] % (Auto) Eos % (Auto) Lymph # (Auto) [place] # (Auto) Eos # (Auto) Seg Neutrophils % Seg Neuts % (Manual) Lymphocytes % (Manual) Monocytes % (Manual) Seg Neutrophils # Seg Neutrophils # Man Lymphocytes # (Manual) Monocytes # (Manual) PT INR ABG pH POC ABG pCO2 POC ABG pO2 ABG pO2 ABG HCO3 ABG O2 Saturation ABG Base Excess ABG Hemoglobin ABG Oxyhemoglobin ABG Sodium ABG Potassium ABG Chloride ABG Glucose Oxyhemoglobin Sodium Potassium Chloride Carbon Dioxide BUN Creatinine Glucose 241 H POC Glucose 205 H 272 H Lactic Acid Calcium Phosphorus Magnesium Total Bilirubin AST ALT Alkaline Phosphatase Total Protein Albumin Triglycerides Arterial Blood Glucose Arterial Blood Ionized Calcium Digoxin Crossmatch 01/02/21 01/02/21 01/03/21 23:25 23:43 03:45 WBC RBC Hgb Hct MCV MCHC RDW Plt Count Lymph % (Auto) [place] % (Auto) Eos % (Auto) Lymph # (Auto) [place] # (Auto) Eos # (Auto) Seg Neutrophils % Seg Neuts % (Manual) Lymphocytes % (Manual) Monocytes % (Manual) Seg Neutrophils # Seg Neutrophils # Man Lymphocytes # (Manual) Monocytes # (Manual) PT INR ABG pH POC ABG pCO2 48.3 H POC ABG pO2 134.4 H 79.7 L ABG pO2 ABG HCO3 ABG O2 Saturation ABG Base Excess ABG Hemoglobin 7.7 L 8.6 L ABG Oxyhemoglobin ABG Sodium 131.8 L 130.4 L ABG Potassium ABG Chloride 97.0 L ABG Glucose 218 H 238 H Oxyhemoglobin Sodium Potassium Chloride Carbon Dioxide BUN Creatinine Glucose POC Glucose 218 H Lactic Acid Calcium Phosphorus Magnesium Total Bilirubin AST ALT Alkaline Phosphatase Total Protein Albumin Triglycerides Arterial Blood Glucose 218 H 238 H Arterial Blood Ionized Calcium 4.1 L 4.0 L Digoxin Crossmatch 01/03/21 01/03/21 01/03/21 04:37 04:37 05:39 WBC 15.2 H RBC 2.38 L Hgb 7.3 L Hct 21.6 L MCV MCHC RDW 16.6 H Plt Count Lymph % (Auto) [place] % (Auto) Eos % (Auto) Lymph # (Auto) [place] # (Auto) Eos # (Auto) Seg Neutrophils % Seg Neuts % (Manual) Lymphocytes % (Manual) Monocytes % (Manual) Seg Neutrophils # Seg Neutrophils # Man Lymphocytes # (Manual) Monocytes # (Manual) PT INR ABG pH POC ABG pCO2 POC ABG pO2 ABG pO2 ABG HCO3 ABG O2 Saturation ABG Base Excess ABG Hemoglobin ABG Oxyhemoglobin ABG Sodium ABG Potassium ABG Chloride ABG Glucose Oxyhemoglobin Sodium 136 L Potassium Chloride 94.5 L Carbon Dioxide BUN 69 H Creatinine 8.0 H Glucose 219 H POC Glucose 222 H Lactic Acid Calcium 7.8 L Phosphorus 4.80 H D Magnesium Total Bilirubin AST ALT Alkaline Phosphatase Total Protein Albumin Triglycerides Arterial Blood Glucose Arterial Blood Ionized Calcium Digoxin Crossmatch 01/03/21 01/03/21 01/03/21 11:29 18:49 23:37 WBC RBC Hgb Hct MCV MCHC RDW Plt Count Lymph % (Auto) [place] % (Auto) Eos % (Auto) Lymph # (Auto) [place] # (Auto) Eos # (Auto) Seg Neutrophils % Seg Neuts % (Manual) Lymphocytes % (Manual) Monocytes % (Manual) Seg Neutrophils # Seg Neutrophils # Man Lymphocytes # (Manual) Monocytes # (Manual) PT INR ABG pH POC ABG pCO2 POC ABG pO2 ABG pO2 ABG HCO3 ABG O2 Saturation ABG Base Excess ABG Hemoglobin ABG Oxyhemoglobin ABG Sodium ABG Potassium ABG Chloride ABG Glucose Oxyhemoglobin Sodium Potassium Chloride Carbon Dioxide BUN Creatinine Glucose POC Glucose 232 H 129 H 140 H Lactic Acid Calcium Phosphorus Magnesium Total Bilirubin AST ALT Alkaline Phosphatase Total Protein Albumin Triglycerides Arterial Blood Glucose Arterial Blood Ionized Calcium Digoxin Crossmatch 01/04/21 01/04/21 01/04/21 03:22 04:38 04:38 WBC 11.1 H RBC 2.89 L Hgb 8.9 L Hct 26.2 L MCV MCHC RDW 16.1 H Plt Count Lymph % (Auto) [place] % (Auto) Eos % (Auto) Lymph # (Auto) [place] # (Auto) Eos # (Auto) Seg Neutrophils % Seg Neuts % (Manual) Lymphocytes % (Manual) Monocytes % (Manual) Seg Neutrophils # Seg Neutrophils # Man Lymphocytes # (Manual) Monocytes # (Manual) PT INR ABG pH POC ABG pCO2 POC ABG pO2 82.3 L ABG pO2 ABG HCO3 ABG O2 Saturation ABG Base Excess ABG Hemoglobin 8.9 L ABG Oxyhemoglobin ABG Sodium 130.5 L ABG Potassium ABG Chloride ABG Glucose 124 H Oxyhemoglobin Sodium Potassium Chloride 95.5 L Carbon Dioxide BUN 87 H Creatinine 9.7 H Glucose 118 H POC Glucose Lactic Acid Calcium 7.7 L Phosphorus Magnesium Total Bilirubin AST ALT Alkaline Phosphatase Total Protein Albumin Triglycerides Arterial Blood Glucose 124 H Arterial Blood Ionized Calcium 3.5 L Digoxin Crossmatch 01/04/21 01/04/21 01/04/21 05:39 12:04 18:04 WBC RBC Hgb Hct MCV MCHC RDW Plt Count Lymph % (Auto) [place] % (Auto) Eos % (Auto) Lymph # (Auto) [place] # (Auto) Eos # (Auto) Seg Neutrophils % Seg Neuts % (Manual) Lymphocytes % (Manual) Monocytes % (Manual) Seg Neutrophils # Seg Neutrophils # Man Lymphocytes # (Manual) Monocytes # (Manual) PT INR ABG pH POC ABG pCO2 POC ABG pO2 ABG pO2 ABG HCO3 ABG O2 Saturation ABG Base Excess ABG Hemoglobin ABG Oxyhemoglobin ABG Sodium ABG Potassium ABG Chloride ABG Glucose Oxyhemoglobin Sodium Potassium Chloride Carbon Dioxide BUN Creatinine Glucose POC Glucose 134 H 125 H 131 H Lactic Acid Calcium Phosphorus Magnesium Total Bilirubin AST ALT Alkaline Phosphatase Total Protein Albumin Triglycerides Arterial Blood Glucose Arterial Blood Ionized Calcium Digoxin Crossmatch 01/04/21 01/05/21 01/05/21 23:41 03:23 04:49 WBC RBC Hgb Hct MCV MCHC RDW Plt Count Lymph % (Auto) [place] % (Auto) Eos % (Auto) Lymph # (Auto) [place] # (Auto) Eos # (Auto) Seg Neutrophils % Seg Neuts % (Manual) Lymphocytes % (Manual) Monocytes % (Manual) Seg Neutrophils # Seg Neutrophils # Man Lymphocytes # (Manual) Monocytes # (Manual) PT INR ABG pH POC ABG pCO2 POC ABG pO2 62.8 L ABG pO2 ABG HCO3 ABG O2 Saturation ABG Base Excess ABG Hemoglobin 9.5 L ABG Oxyhemoglobin 92.0 L ABG Sodium 130.1 L ABG Potassium ABG Chloride ABG Glucose 148 H Oxyhemoglobin Sodium Potassium Chloride 96.9 L Carbon Dioxide BUN 57 H Creatinine 6.7 H Glucose 135 H POC Glucose 132 H Lactic Acid Calcium 8.0 L Phosphorus Magnesium Total Bilirubin AST ALT Alkaline Phosphatase Total Protein Albumin Triglycerides Arterial Blood Glucose 148 H Arterial Blood Ionized Calcium 4.1 L Digoxin Crossmatch 01/05/21 01/05/21 01/05/21 05:04 11:48 12:39 WBC RBC 3.03 L Hgb 9.3 L Hct 27.6 L MCV MCHC RDW 16.5 H Plt Count Lymph % (Auto) [place] % (Auto) Eos % (Auto) Lymph # (Auto) [place] # (Auto) Eos # (Auto) Seg Neutrophils % Seg Neuts % (Manual) Lymphocytes % (Manual) Monocytes % (Manual) Seg Neutrophils # Seg Neutrophils # Man Lymphocytes # (Manual) Monocytes # (Manual) PT INR ABG pH POC ABG pCO2 POC ABG pO2 ABG pO2 ABG HCO3 ABG O2 Saturation ABG Base Excess ABG Hemoglobin ABG Oxyhemoglobin ABG Sodium ABG Potassium ABG Chloride ABG Glucose Oxyhemoglobin Sodium Potassium Chloride Carbon Dioxide BUN Creatinine Glucose POC Glucose 147 H 162 H Lactic Acid Calcium Phosphorus Magnesium Total Bilirubin AST ALT Alkaline Phosphatase Total Protein Albumin Triglycerides Arterial Blood Glucose Arterial Blood Ionized Calcium Digoxin Crossmatch 01/05/21 01/05/21 01/06/21 17:50 23:32 04:15 WBC RBC Hgb Hct MCV MCHC RDW Plt Count Lymph % (Auto) [place] % (Auto) Eos % (Auto) Lymph # (Auto) [place] # (Auto) Eos # (Auto) Seg Neutrophils % Seg Neuts % (Manual) Lymphocytes % (Manual) Monocytes % (Manual) Seg Neutrophils # Seg Neutrophils # Man Lymphocytes # (Manual) Monocytes # (Manual) PT INR ABG pH POC ABG pCO2 POC ABG pO2 ABG pO2 191.0 H ABG HCO3 ABG O2 Saturation 99.2 H ABG Base Excess ABG Hemoglobin 9.0 L ABG Oxyhemoglobin ABG Sodium ABG Potassium ABG Chloride ABG Glucose Oxyhemoglobin Sodium Potassium Chloride Carbon Dioxide BUN Creatinine Glucose POC Glucose 155 H 115 H Lactic Acid Calcium Phosphorus Magnesium Total Bilirubin AST ALT Alkaline Phosphatase Total Protein Albumin Triglycerides Arterial Blood Glucose Arterial Blood Ionized Calcium Digoxin Crossmatch 01/06/21 01/06/21 01/06/21 04:45 05:56 07:03 WBC RBC 2.95 L Hgb 9.1 L Hct 26.8 L MCV MCHC RDW 16.8 H Plt Count Lymph % (Auto) [place] % (Auto) Eos % (Auto) Lymph # (Auto) [place] # (Auto) Eos # (Auto) Seg Neutrophils % Seg Neuts % (Manual) Lymphocytes % (Manual) Monocytes % (Manual) Seg Neutrophils # Seg Neutrophils # Man Lymphocytes # (Manual) Monocytes # (Manual) PT INR ABG pH POC ABG pCO2 POC ABG pO2 ABG pO2 ABG HCO3 ABG O2 Saturation ABG Base Excess ABG Hemoglobin ABG Oxyhemoglobin ABG Sodium ABG Potassium ABG Chloride ABG Glucose Oxyhemoglobin Sodium 135 L Potassium Chloride 95.9 L Carbon Dioxide BUN 82 H Creatinine 8.7 H Glucose 127 H POC Glucose 136 H Lactic Acid Calcium 8.3 L Phosphorus Magnesium Total Bilirubin AST ALT Alkaline Phosphatase Total Protein Albumin Triglycerides Arterial Blood Glucose Arterial Blood Ionized Calcium Digoxin Crossmatch 01/06/21 01/06/21 01/06/21 07:10 11:04 13:38 WBC RBC Hgb Hct MCV MCHC RDW Plt Count Lymph % (Auto) [place] % (Auto) Eos % (Auto) Lymph # (Auto) [place] # (Auto) Eos # (Auto) Seg Neutrophils % Seg Neuts % (Manual) Lymphocytes % (Manual) Monocytes % (Manual) Seg Neutrophils # Seg Neutrophils # Man Lymphocytes # (Manual) Monocytes # (Manual) PT INR ABG pH POC ABG pCO2 POC ABG pO2 ABG pO2 ABG HCO3 ABG O2 Saturation ABG Base Excess ABG Hemoglobin ABG Oxyhemoglobin ABG Sodium ABG Potassium ABG Chloride ABG Glucose Oxyhemoglobin Sodium Potassium Chloride Carbon Dioxide BUN Creatinine Glucose POC Glucose 178 H 155 H Lactic Acid Calcium Phosphorus Magnesium Total Bilirubin AST ALT Alkaline Phosphatase Total Protein Albumin Triglycerides Arterial Blood Glucose Arterial Blood Ionized Calcium Digoxin Crossmatch See Detail 01/06/21 01/06/21 01/07/21 17:35 22:21 03:07 WBC RBC Hgb Hct MCV MCHC RDW Plt Count Lymph % (Auto) [place] % (Auto) Eos % (Auto) Lymph # (Auto) [place] # (Auto) Eos # (Auto) Seg Neutrophils % Seg Neuts % (Manual) Lymphocytes % (Manual) Monocytes % (Manual) Seg Neutrophils # Seg Neutrophils # Man Lymphocytes # (Manual) Monocytes # (Manual) PT INR ABG pH POC ABG pCO2 POC ABG pO2 ABG pO2 ABG HCO3 ABG O2 Saturation ABG Base Excess ABG Hemoglobin 11.9 L ABG Oxyhemoglobin ABG Sodium 135.6 L ABG Potassium ABG Chloride ABG Glucose 181 H Oxyhemoglobin Sodium Potassium Chloride Carbon Dioxide BUN Creatinine Glucose POC Glucose 138 H 202 H Lactic Acid Calcium Phosphorus Magnesium Total Bilirubin AST ALT Alkaline Phosphatase Total Protein Albumin Triglycerides Arterial Blood Glucose 181 H Arterial Blood Ionized Calcium 4.3 L Digoxin Crossmatch 01/07/21 01/07/21 01/07/21 04:50 05: 08:37 WBC 12.4 H RBC Hgb 11.1 L Hct 33.3 L D MCV MCHC RDW 17.0 H Plt Count Lymph % (Auto) 3.2 L [place] % (Auto) 9.4 H Eos % (Auto) Lymph # (Auto) 0.4 L [place] # (Auto) 1.2 H Eos # (Auto) Seg Neutrophils % 86.6 H Seg Neuts % (Manual) Lymphocytes % (Manual) Monocytes % (Manual) Seg Neutrophils # 10.7 H Seg Neutrophils # Man Lymphocytes # (Manual) Monocytes # (Manual) PT INR ABG pH POC ABG pCO2 POC ABG pO2 ABG pO2 ABG HCO3 ABG O2 Saturation ABG Base Excess ABG Hemoglobin ABG Oxyhemoglobin ABG Sodium ABG Potassium ABG Chloride ABG Glucose Oxyhemoglobin Sodium Potassium Chloride Carbon Dioxide BUN 60 H Creatinine 6.3 H Glucose 154 H POC Glucose 177 H Lactic Acid Calcium 8.3 L Phosphorus Magnesium Total Bilirubin AST ALT Alkaline Phosphatase Total Protein Albumin Triglycerides Arterial Blood Glucose Arterial Blood Ionized Calcium Digoxin Crossmatch 01/07/21 01/07/21 01/07/21 11:21 12:19 17:11 WBC RBC Hgb Hct MCV MCHC RDW Plt Count Lymph % (Auto) [place] % (Auto) Eos % (Auto) Lymph # (Auto) [place] # (Auto) Eos # (Auto) Seg Neutrophils % Seg Neuts % (Manual) Lymphocytes % (Manual) Monocytes % (Manual) Seg Neutrophils # Seg Neutrophils # Man Lymphocytes # (Manual) Monocytes # (Manual) PT INR ABG pH POC ABG pCO2 POC ABG pO2 ABG pO2 ABG HCO3 ABG O2 Saturation ABG Base Excess ABG Hemoglobin ABG Oxyhemoglobin ABG Sodium ABG Potassium ABG Chloride ABG Glucose Oxyhemoglobin Sodium Potassium Chloride Carbon Dioxide BUN Creatinine Glucose POC Glucose 144 H 137 H 119 H Lactic Acid Calcium Phosphorus Magnesium Total Bilirubin AST ALT Alkaline Phosphatase Total Protein Albumin Triglycerides Arterial Blood Glucose Arterial Blood Ionized Calcium Digoxin Crossmatch 01/07/21 01/07/21 01/08/21 17:14 23:39 04:34 WBC RBC Hgb Hct MCV MCHC RDW Plt Count Lymph % (Auto) [place] % (Auto) Eos % (Auto) Lymph # (Auto) [place] # (Auto) Eos # (Auto) Seg Neutrophils % Seg Neuts % (Manual) Lymphocytes % (Manual) Monocytes % (Manual) Seg Neutrophils # Seg Neutrophils # Man Lymphocytes # (Manual) Monocytes # (Manual) PT INR ABG pH 7.345 L POC ABG pCO2 POC ABG pO2 ABG pO2 67.4 L ABG HCO3 ABG O2 Saturation 94.3 L ABG Base Excess -3.9 L ABG Hemoglobin 8.9 L ABG Oxyhemoglobin ABG Sodium ABG Potassium ABG Chloride ABG Glucose Oxyhemoglobin 92.3 L Sodium Potassium Chloride Carbon Dioxide 20 L BUN 93 H Creatinine 8.8 H Glucose 120 H POC Glucose 129 H Lactic Acid Calcium Phosphorus Magnesium Total Bilirubin AST ALT Alkaline Phosphatase 133 H Total Protein 5.4 L Albumin 1.9 L Triglycerides Arterial Blood Glucose Arterial Blood Ionized Calcium Digoxin Crossmatch 01/08/21 01/08/21 01/08/21 05:26 11:38 17:19 WBC RBC Hgb Hct MCV MCHC RDW Plt Count Lymph % (Auto) [place] % (Auto) Eos % (Auto) Lymph # (Auto) [place] # (Auto) Eos # (Auto) Seg Neutrophils % Seg Neuts % (Manual) Lymphocytes % (Manual) Monocytes % (Manual) Seg Neutrophils # Seg Neutrophils # Man Lymphocytes # (Manual) Monocytes # (Manual) PT INR ABG pH POC ABG pCO2 POC ABG pO2 ABG pO2 ABG HCO3 ABG O2 Saturation ABG Base Excess ABG Hemoglobin ABG Oxyhemoglobin ABG Sodium ABG Potassium ABG Chloride ABG Glucose Oxyhemoglobin Sodium Potassium Chloride Carbon Dioxide BUN Creatinine Glucose POC Glucose 125 H 146 H 136 H Lactic Acid Calcium Phosphorus Magnesium Total Bilirubin AST ALT Alkaline Phosphatase Total Protein Albumin Triglycerides Arterial Blood Glucose Arterial Blood Ionized Calcium Digoxin Crossmatch 01/08/21 01/09/21 01/09/21 23:52 05:13 05:21 WBC RBC Hgb Hct MCV MCHC RDW Plt Count Lymph % (Auto) [place] % (Auto) Eos % (Auto) Lymph # (Auto) [place] # (Auto) Eos # (Auto) Seg Neutrophils % Seg Neuts % (Manual) Lymphocytes % (Manual) Monocytes % (Manual) Seg Neutrophils # Seg Neutrophils # Man Lymphocytes # (Manual) Monocytes # (Manual) PT INR ABG pH POC ABG pCO2 POC ABG pO2 ABG pO2 ABG HCO3 ABG O2 Saturation ABG Base Excess ABG Hemoglobin ABG Oxyhemoglobin ABG Sodium ABG Potassium ABG Chloride ABG Glucose Oxyhemoglobin Sodium Potassium Chloride Carbon Dioxide 16 L BUN 123 H Creatinine 10.8 H Glucose 145 H POC Glucose 143 H 144 H Lactic Acid Calcium Phosphorus 5.00 H D Magnesium 2.40 H Total Bilirubin AST ALT Alkaline Phosphatase Total Protein Albumin Triglycerides Arterial Blood Glucose Arterial Blood Ionized Calcium Digoxin Crossmatch 01/09/21 01/09/21 01/09/21 12:08 17:20 23:56 WBC RBC Hgb Hct MCV MCHC RDW Plt Count Lymph % (Auto) [place] % (Auto) Eos % (Auto) Lymph # (Auto) [place] # (Auto) Eos # (Auto) Seg Neutrophils % Seg Neuts % (Manual) Lymphocytes % (Manual) Monocytes % (Manual) Seg Neutrophils # Seg Neutrophils # Man Lymphocytes # (Manual) Monocytes # (Manual) PT INR ABG pH POC ABG pCO2 POC ABG pO2 ABG pO2 ABG HCO3 ABG O2 Saturation ABG Base Excess ABG Hemoglobin ABG Oxyhemoglobin ABG Sodium ABG Potassium ABG Chloride ABG Glucose Oxyhemoglobin Sodium Potassium Chloride Carbon Dioxide BUN Creatinine Glucose POC Glucose 153 H 160 H 158 H Lactic Acid Calcium Phosphorus Magnesium Total Bilirubin AST ALT Alkaline Phosphatase Total Protein Albumin Triglycerides Arterial Blood Glucose Arterial Blood Ionized Calcium Digoxin Crossmatch 01/10/21 01/10/21 01/10/21 04:52 05:44 07:41 WBC RBC Hgb Hct MCV MCHC RDW Plt Count Lymph % (Auto) [place] % (Auto) Eos % (Auto) Lymph # (Auto) [place] # (Auto) Eos # (Auto) Seg Neutrophils % Seg Neuts % (Manual) Lymphocytes % (Manual) Monocytes % (Manual) Seg Neutrophils # Seg Neutrophils # Man Lymphocytes # (Manual) Monocytes # (Manual) PT INR ABG pH POC ABG pCO2 POC ABG pO2 ABG pO2 ABG HCO3 ABG O2 Saturation ABG Base Excess ABG Hemoglobin ABG Oxyhemoglobin ABG Sodium ABG Potassium ABG Chloride ABG Glucose Oxyhemoglobin Sodium 135 L Potassium 3.5 L D Chloride 95.0 L Carbon Dioxide 21 L BUN 93 H Creatinine 8.3 H Glucose 127 H POC Glucose 135 H 157 H Lactic Acid Calcium Phosphorus Magnesium Total Bilirubin AST ALT Alkaline Phosphatase Total Protein Albumin Triglycerides Arterial Blood Glucose Arterial Blood Ionized Calcium Digoxin Crossmatch 01/10/21 01/10/21 01/10/21 09:26 12:03 17:44 WBC 18.2 H RBC 3.14 L Hgb 9.7 L Hct 28.2 L MCV MCHC RDW 16.5 H Plt Count Lymph % (Auto) [place] % (Auto) Eos % (Auto) Lymph # (Auto) [place] # (Auto) Eos # (Auto) Seg Neutrophils % Seg Neuts % (Manual) 95.0 H Lymphocytes % (Manual) 3.0 L Monocytes % (Manual) Seg Neutrophils # Seg Neutrophils # Man 17.3 H Lymphocytes # (Manual) 0.5 L Monocytes # (Manual) PT INR ABG pH POC ABG pCO2 POC ABG pO2 ABG pO2 ABG HCO3 ABG O2 Saturation ABG Base Excess ABG Hemoglobin ABG Oxyhemoglobin ABG Sodium ABG Potassium ABG Chloride ABG Glucose Oxyhemoglobin Sodium Potassium Chloride Carbon Dioxide BUN Creatinine Glucose POC Glucose 163 H 171 H Lactic Acid Calcium Phosphorus Magnesium Total Bilirubin AST ALT Alkaline Phosphatase Total Protein Albumin Triglycerides Arterial Blood Glucose Arterial Blood Ionized Calcium Digoxin Crossmatch 01/10/21 01/11/21 01/11/21 23:50 05:18 05:18 WBC RBC Hgb Hct MCV MCHC RDW Plt Count Lymph % (Auto) [place] % (Auto) Eos % (Auto) Lymph # (Auto) [place] # (Auto) Eos # (Auto) Seg Neutrophils % Seg Neuts % (Manual) Lymphocytes % (Manual) Monocytes % (Manual) Seg Neutrophils # Seg Neutrophils # Man Lymphocytes # (Manual) Monocytes # (Manual) PT INR ABG pH POC ABG pCO2 POC ABG pO2 ABG pO2 ABG HCO3 ABG O2 Saturation ABG Base Excess ABG Hemoglobin ABG Oxyhemoglobin ABG Sodium ABG Potassium ABG Chloride ABG Glucose Oxyhemoglobin Sodium 136 L Potassium Chloride 94.6 L Carbon Dioxide 19 L BUN 145 H Creatinine 10.6 H Glucose 152 H POC Glucose 151 H Lactic Acid Calcium Phosphorus 6.00 H D Magnesium Total Bilirubin AST ALT Alkaline Phosphatase Total Protein Albumin Triglycerides Arterial Blood Glucose Arterial Blood Ionized Calcium Digoxin 0.8 L Crossmatch 01/11/21 01/11/21 01/11/21 05:18 05:19 11:28 WBC 17.4 H RBC 3.34 L Hgb 10.2 L Hct 29.7 L MCV MCHC RDW 15.9 H Plt Count Lymph % (Auto) [place] % (Auto) Eos % (Auto) Lymph # (Auto) [place] # (Auto) Eos # (Auto) Seg Neutrophils % Seg Neuts % (Manual) Lymphocytes % (Manual) Monocytes % (Manual) Seg Neutrophils # Seg Neutrophils # Man Lymphocytes # (Manual) Monocytes # (Manual) PT INR ABG pH POC ABG pCO2 POC ABG pO2 ABG pO2 ABG HCO3 ABG O2 Saturation ABG Base Excess ABG Hemoglobin ABG Oxyhemoglobin ABG Sodium ABG Potassium ABG Chloride ABG Glucose Oxyhemoglobin Sodium Potassium Chloride Carbon Dioxide BUN Creatinine Glucose POC Glucose 149 H 178 H Lactic Acid Calcium Phosphorus Magnesium Total Bilirubin AST ALT Alkaline Phosphatase Total Protein Albumin Triglycerides Arterial Blood Glucose Arterial Blood Ionized Calcium Digoxin Crossmatch 01/11/21 01/11/21 01/12/21 17:31 23:14 05:18 WBC RBC Hgb Hct MCV MCHC RDW Plt Count Lymph % (Auto) [place] % (Auto) Eos % (Auto) Lymph # (Auto) [place] # (Auto) Eos # (Auto) Seg Neutrophils % Seg Neuts % (Manual) Lymphocytes % (Manual) Monocytes % (Manual) Seg Neutrophils # Seg Neutrophils # Man Lymphocytes # (Manual) Monocytes # (Manual) PT INR ABG pH POC ABG pCO2 POC ABG pO2 ABG pO2 ABG HCO3 ABG O2 Saturation ABG Base Excess ABG Hemoglobin ABG Oxyhemoglobin ABG Sodium ABG Potassium ABG Chloride ABG Glucose Oxyhemoglobin Sodium Potassium Chloride Carbon Dioxide BUN Creatinine Glucose POC Glucose 158 H 145 H 148 H Lactic Acid Calcium Phosphorus Magnesium Total Bilirubin AST ALT Alkaline Phosphatase Total Protein Albumin Triglycerides Arterial Blood Glucose Arterial Blood Ionized Calcium Digoxin Crossmatch 01/12/21 01/12/21 01/12/21 06:50 10:45 13:34 WBC RBC Hgb Hct MCV MCHC RDW Plt Count Lymph % (Auto) [place] % (Auto) Eos % (Auto) Lymph # (Auto) [place] # (Auto) Eos # (Auto) Seg Neutrophils % Seg Neuts % (Manual) Lymphocytes % (Manual) Monocytes % (Manual) Seg Neutrophils # Seg Neutrophils # Man Lymphocytes # (Manual) Monocytes # (Manual) PT INR ABG pH POC ABG pCO2 POC ABG pO2 ABG pO2 ABG HCO3 ABG O2 Saturation ABG Base Excess ABG Hemoglobin ABG Oxyhemoglobin ABG Sodium ABG Potassium ABG Chloride ABG Glucose Oxyhemoglobin Sodium Potassium 2.9 L* D Chloride 94.8 L Carbon Dioxide BUN 102 H Creatinine 8.3 H Glucose 139 H POC Glucose 151 H 134 H Lactic Acid Calcium 8.1 L Phosphorus 5.00 H Magnesium Total Bilirubin AST ALT Alkaline Phosphatase Total Protein Albumin Triglycerides Arterial Blood Glucose Arterial Blood Ionized Calcium Digoxin Crossmatch 01/12/21 01/12/21 01/13/21 16:59 23:06 03:45 WBC RBC Hgb Hct MCV MCHC RDW Plt Count Lymph % (Auto) [place] % (Auto) Eos % (Auto) Lymph # (Auto) [place] # (Auto) Eos # (Auto) Seg Neutrophils % Seg Neuts % (Manual) Lymphocytes % (Manual) Monocytes % (Manual) Seg Neutrophils # Seg Neutrophils # Man Lymphocytes # (Manual) Monocytes # (Manual) PT INR ABG pH POC ABG pCO2 POC ABG pO2 ABG pO2 ABG HCO3 ABG O2 Saturation ABG Base Excess ABG Hemoglobin ABG Oxyhemoglobin ABG Sodium ABG Potassium ABG Chloride ABG Glucose Oxyhemoglobin Sodium 136 L Potassium 3.4 L Chloride 92.6 L Carbon Dioxide BUN 134 H Creatinine 10.4 H Glucose 126 H POC Glucose 108 H 135 H Lactic Acid Calcium 8.3 L Phosphorus 5.60 H Magnesium 1.50 L Total Bilirubin AST ALT Alkaline Phosphatase Total Protein Albumin Triglycerides Arterial Blood Glucose Arterial Blood Ionized Calcium Digoxin Crossmatch 01/13/21 01/13/21 01/13/21 03:45 05:55 11:59 WBC 17.6 H RBC 3.33 L Hgb 10.2 L Hct 29.5 L MCV MCHC 35 H RDW 15.5 H Plt Count Lymph % (Auto) 4.4 L [place] % (Auto) 10.3 H Eos % (Auto) Lymph # (Auto) 0.8 L [place] # (Auto) 1.8 H Eos # (Auto) Seg Neutrophils % 84.2 H Seg Neuts % (Manual) Lymphocytes % (Manual) Monocytes % (Manual) Seg Neutrophils # 14.8 H Seg Neutrophils # Man Lymphocytes # (Manual) Monocytes # (Manual) PT INR ABG pH POC ABG pCO2 POC ABG pO2 ABG pO2 ABG HCO3 ABG O2 Saturation ABG Base Excess ABG Hemoglobin ABG Oxyhemoglobin ABG Sodium ABG Potassium ABG Chloride ABG Glucose Oxyhemoglobin Sodium Potassium Chloride Carbon Dioxide BUN Creatinine Glucose POC Glucose 134 H 141 H Lactic Acid Calcium Phosphorus Magnesium Total Bilirubin AST ALT Alkaline Phosphatase Total Protein Albumin Triglycerides Arterial Blood Glucose Arterial Blood Ionized Calcium Digoxin Crossmatch 01/13/21 01/14/21 01/14/21 23:09 05:39 05:57 WBC RBC Hgb Hct MCV MCHC RDW Plt Count Lymph % (Auto) [place] % (Auto) Eos % (Auto) Lymph # (Auto) [place] # (Auto) Eos # (Auto) Seg Neutrophils % Seg Neuts % (Manual) Lymphocytes % (Manual) Monocytes % (Manual) Seg Neutrophils # Seg Neutrophils # Man Lymphocytes # (Manual) Monocytes # (Manual) PT INR ABG pH POC ABG pCO2 POC ABG pO2 ABG pO2 ABG HCO3 ABG O2 Saturation ABG Base Excess ABG Hemoglobin ABG Oxyhemoglobin ABG Sodium ABG Potassium ABG Chloride ABG Glucose Oxyhemoglobin Sodium Potassium Chloride 97.6 L Carbon Dioxide BUN 81 H Creatinine 7.6 H Glucose 193 H POC Glucose 106 H 190 H Lactic Acid Calcium 8.2 L Phosphorus 4.60 H Magnesium Total Bilirubin AST ALT Alkaline Phosphatase Total Protein Albumin Triglycerides Arterial Blood Glucose Arterial Blood Ionized Calcium Digoxin Crossmatch 01/14/21 01/14/21 01/14/21 10:00 16:56 16:59 WBC 17.0 H RBC 3.10 L Hgb 9.6 L Hct 27.4 L MCV MCHC 35 H RDW 15.6 H Plt Count Lymph % (Auto) [place] % (Auto) Eos % (Auto) Lymph # (Auto) [place] # (Auto) Eos # (Auto) Seg Neutrophils % Seg Neuts % (Manual) Lymphocytes % (Manual) Monocytes % (Manual) Seg Neutrophils # Seg Neutrophils # Man Lymphocytes # (Manual) Monocytes # (Manual) PT INR ABG pH POC ABG pCO2 POC ABG pO2 ABG pO2 ABG HCO3 ABG O2 Saturation ABG Base Excess ABG Hemoglobin ABG Oxyhemoglobin ABG Sodium ABG Potassium ABG Chloride ABG Glucose Oxyhemoglobin Sodium Potassium Chloride Carbon Dioxide BUN Creatinine Glucose POC Glucose 37 L 34 L Lactic Acid Calcium Phosphorus Magnesium Total Bilirubin AST ALT Alkaline Phosphatase Total Protein Albumin Triglycerides Arterial Blood Glucose Arterial Blood Ionized Calcium Digoxin Crossmatch 01/14/21 01/14/21 01/14/21 17:02 18:34 23:17 WBC RBC Hgb Hct MCV MCHC RDW Plt Count Lymph % (Auto) [place] % (Auto) Eos % (Auto) Lymph # (Auto) [place] # (Auto) Eos # (Auto) Seg Neutrophils % Seg Neuts % (Manual) Lymphocytes % (Manual) Monocytes % (Manual) Seg Neutrophils # Seg Neutrophils # Man Lymphocytes # (Manual) Monocytes # (Manual) PT INR ABG pH POC ABG pCO2 POC ABG pO2 ABG pO2 ABG HCO3 ABG O2 Saturation ABG Base Excess ABG Hemoglobin ABG Oxyhemoglobin ABG Sodium ABG Potassium ABG Chloride ABG Glucose Oxyhemoglobin Sodium Potassium Chloride Carbon Dioxide BUN Creatinine Glucose POC Glucose 35 L 143 H 53 L Lactic Acid Calcium Phosphorus Magnesium Total Bilirubin AST ALT Alkaline Phosphatase Total Protein Albumin Triglycerides Arterial Blood Glucose Arterial Blood Ionized Calcium Digoxin Crossmatch 01/15/21 01/15/21 01/15/21 00:34 04:00 04:00 WBC 15.9 H RBC 3.02 L Hgb 9.3 L Hct 27.3 L MCV MCHC RDW 15.6 H Plt Count Lymph % (Auto) [place] % (Auto) Eos % (Auto) Lymph # (Auto) [place] # (Auto) Eos # (Auto) Seg Neutrophils % Seg Neuts % (Manual) Lymphocytes % (Manual) Monocytes % (Manual) Seg Neutrophils # Seg Neutrophils # Man Lymphocytes # (Manual) Monocytes # (Manual) PT INR ABG pH POC ABG pCO2 POC ABG pO2 ABG pO2 ABG HCO3 ABG O2 Saturation ABG Base Excess ABG Hemoglobin ABG Oxyhemoglobin ABG Sodium ABG Potassium ABG Chloride ABG Glucose Oxyhemoglobin Sodium 136 L Potassium Chloride 94.3 L Carbon Dioxide BUN 117 H Creatinine 9.9 H Glucose 217 H POC Glucose 181 H Lactic Acid Calcium 8.3 L Phosphorus Magnesium Total Bilirubin AST ALT Alkaline Phosphatase Total Protein Albumin Triglycerides Arterial Blood Glucose Arterial Blood Ionized Calcium Digoxin Crossmatch 01/15/21 01/15/21 01/15/21 05:29 11:51 23:13 WBC RBC Hgb Hct MCV MCHC RDW Plt Count Lymph % (Auto) [place] % (Auto) Eos % (Auto) Lymph # (Auto) [place] # (Auto) Eos # (Auto) Seg Neutrophils % Seg Neuts % (Manual) Lymphocytes % (Manual) Monocytes % (Manual) Seg Neutrophils # Seg Neutrophils # Man Lymphocytes # (Manual) Monocytes # (Manual) PT INR ABG pH POC ABG pCO2 POC ABG pO2 ABG pO2 ABG HCO3 ABG O2 Saturation ABG Base Excess ABG Hemoglobin ABG Oxyhemoglobin ABG Sodium ABG Potassium ABG Chloride ABG Glucose Oxyhemoglobin Sodium Potassium Chloride Carbon Dioxide BUN Creatinine Glucose POC Glucose 221 H 62 L 154 H Lactic Acid Calcium Phosphorus Magnesium Total Bilirubin AST ALT Alkaline Phosphatase Total Protein Albumin Triglycerides Arterial Blood Glucose Arterial Blood Ionized Calcium Digoxin Crossmatch 01/16/21 01/16/21 01/16/21 05:04 06:44 06:44 WBC 14.8 H RBC 2.76 L Hgb 8.2 L Hct 24.8 L MCV MCHC RDW 15.6 H Plt Count Lymph % (Auto) [place] % (Auto) Eos % (Auto) Lymph # (Auto) [place] # (Auto) Eos # (Auto) Seg Neutrophils % Seg Neuts % (Manual) Lymphocytes % (Manual) Monocytes % (Manual) Seg Neutrophils # Seg Neutrophils # Man Lymphocytes # (Manual) Monocytes # (Manual) PT INR ABG pH POC ABG pCO2 POC ABG pO2 ABG pO2 ABG HCO3 ABG O2 Saturation ABG Base Excess ABG Hemoglobin ABG Oxyhemoglobin ABG Sodium ABG Potassium ABG Chloride ABG Glucose Oxyhemoglobin Sodium 133 L Potassium Chloride 92.3 L Carbon Dioxide 20 L BUN 160 H Creatinine 12.1 H Glucose 177 H POC Glucose 168 H Lactic Acid Calcium 8.1 L Phosphorus 5.50 H Magnesium 2.50 H Total Bilirubin AST ALT Alkaline Phosphatase Total Protein Albumin Triglycerides Arterial Blood Glucose Arterial Blood Ionized Calcium Digoxin Crossmatch 01/16/21 01/17/21 01/17/21 23:20 05:14 05:14 WBC 12.7 H RBC 2.75 L Hgb 8.5 L Hct 24.6 L MCV MCHC 35 H RDW 15.4 H Plt Count Lymph % (Auto) [place] % (Auto) Eos % (Auto) Lymph # (Auto) [place] # (Auto) Eos # (Auto) Seg Neutrophils % Seg Neuts % (Manual) Lymphocytes % (Manual) Monocytes % (Manual) Seg Neutrophils # Seg Neutrophils # Man Lymphocytes # (Manual) Monocytes # (Manual) PT INR ABG pH POC ABG pCO2 POC ABG pO2 ABG pO2 ABG HCO3 ABG O2 Saturation ABG Base Excess ABG Hemoglobin ABG Oxyhemoglobin ABG Sodium ABG Potassium ABG Chloride ABG Glucose Oxyhemoglobin Sodium Potassium Chloride 97.9 L Carbon Dioxide BUN 84 H Creatinine 7.8 H Glucose 176 H POC Glucose 153 H Lactic Acid Calcium 8.0 L Phosphorus Magnesium Total Bilirubin AST ALT Alkaline Phosphatase Total Protein Albumin Triglycerides Arterial Blood Glucose Arterial Blood Ionized Calcium Digoxin Crossmatch 01/17/21 01/17/21 01/18/21 05:33 11:58 00:07 WBC RBC Hgb Hct MCV MCHC RDW Plt Count Lymph % (Auto) [place] % (Auto) Eos % (Auto) Lymph # (Auto) [place] # (Auto) Eos # (Auto) Seg Neutrophils % Seg Neuts % (Manual) Lymphocytes % (Manual) Monocytes % (Manual) Seg Neutrophils # Seg Neutrophils # Man Lymphocytes # (Manual) Monocytes # (Manual) PT INR ABG pH POC ABG pCO2 POC ABG pO2 ABG pO2 ABG HCO3 ABG O2 Saturation ABG Base Excess ABG Hemoglobin ABG Oxyhemoglobin ABG Sodium ABG Potassium ABG Chloride ABG Glucose Oxyhemoglobin Sodium Potassium Chloride Carbon Dioxide BUN Creatinine Glucose POC Glucose 162 H 64 L 146 H Lactic Acid Calcium Phosphorus Magnesium Total Bilirubin AST ALT Alkaline Phosphatase Total Protein Albumin Triglycerides Arterial Blood Glucose Arterial Blood Ionized Calcium Digoxin Crossmatch 01/18/21 01/18/21 01/18/21 04:19 04:19 06:15 WBC 15.6 H RBC 3.00 L Hgb 9.2 L Hct 26.8 L MCV MCHC 35 H RDW 15.6 H Plt Count Lymph % (Auto) [place] % (Auto) Eos % (Auto) Lymph # (Auto) [place] # (Auto) Eos # (Auto) Seg Neutrophils % Seg Neuts % (Manual) Lymphocytes % (Manual) Monocytes % (Manual) Seg Neutrophils # Seg Neutrophils # Man Lymphocytes # (Manual) Monocytes # (Manual) PT INR ABG pH POC ABG pCO2 POC ABG pO2 ABG pO2 ABG HCO3 ABG O2 Saturation ABG Base Excess ABG Hemoglobin ABG Oxyhemoglobin ABG Sodium ABG Potassium ABG Chloride ABG Glucose Oxyhemoglobin Sodium Potassium Chloride 96.2 L Carbon Dioxide BUN 117 H Creatinine 10.0 H Glucose 165 H POC Glucose 189 H Lactic Acid Calcium Phosphorus 4.70 H D Magnesium Total Bilirubin AST ALT Alkaline Phosphatase Total Protein Albumin Triglycerides Arterial Blood Glucose Arterial Blood Ionized Calcium Digoxin Crossmatch 01/18/21 01/18/21 01/18/21 11:53 13:44 15:08 WBC RBC Hgb Hct MCV MCHC RDW Plt Count Lymph % (Auto) [place] % (Auto) Eos % (Auto) Lymph # (Auto) [place] # (Auto) Eos # (Auto) Seg Neutrophils % Seg Neuts % (Manual) Lymphocytes % (Manual) Monocytes % (Manual) Seg Neutrophils # Seg Neutrophils # Man Lymphocytes # (Manual) Monocytes # (Manual) PT INR ABG pH POC ABG pCO2 POC ABG pO2 ABG pO2 ABG HCO3 ABG O2 Saturation ABG Base Excess ABG Hemoglobin ABG Oxyhemoglobin ABG Sodium ABG Potassium ABG Chloride ABG Glucose Oxyhemoglobin Sodium Potassium Chloride Carbon Dioxide BUN Creatinine Glucose POC Glucose 69 L 50 L 56 L Lactic Acid Calcium Phosphorus Magnesium Total Bilirubin AST ALT Alkaline Phosphatase Total Protein Albumin Triglycerides Arterial Blood Glucose Arterial Blood Ionized Calcium Digoxin Crossmatch 01/18/21 01/19/21 01/19/21 17:50 04:55 08:56 WBC 12.7 H RBC 2.89 L Hgb 8.7 L Hct 25.6 L MCV MCHC RDW 15.5 H Plt Count Lymph % (Auto) [place] % (Auto) Eos % (Auto) Lymph # (Auto) [place] # (Auto) Eos # (Auto) Seg Neutrophils % Seg Neuts % (Manual) Lymphocytes % (Manual) Monocytes % (Manual) Seg Neutrophils # Seg Neutrophils # Man Lymphocytes # (Manual) Monocytes # (Manual) PT INR ABG pH POC ABG pCO2 POC ABG pO2 ABG pO2 ABG HCO3 ABG O2 Saturation ABG Base Excess ABG Hemoglobin ABG Oxyhemoglobin ABG Sodium ABG Potassium ABG Chloride ABG Glucose Oxyhemoglobin Sodium Potassium Chloride Carbon Dioxide BUN Creatinine Glucose POC Glucose 137 H 120 H Lactic Acid Calcium Phosphorus Magnesium Total Bilirubin AST ALT Alkaline Phosphatase Total Protein Albumin Triglycerides Arterial Blood Glucose Arterial Blood Ionized Calcium Digoxin Crossmatch 01/19/21 01/19/21 01/19/21 08:56 11:33 17:32 WBC RBC Hgb Hct MCV MCHC RDW Plt Count Lymph % (Auto) [place] % (Auto) Eos % (Auto) Lymph # (Auto) [place] # (Auto) Eos # (Auto) Seg Neutrophils % Seg Neuts % (Manual) Lymphocytes % (Manual) Monocytes % (Manual) Seg Neutrophils # Seg Neutrophils # Man Lymphocytes # (Manual) Monocytes # (Manual) PT INR ABG pH POC ABG pCO2 POC ABG pO2 ABG pO2 ABG HCO3 ABG O2 Saturation ABG Base Excess ABG Hemoglobin ABG Oxyhemoglobin ABG Sodium ABG Potassium ABG Chloride ABG Glucose Oxyhemoglobin Sodium Potassium Chloride Carbon Dioxide BUN 66 H Creatinine 7.7 H Glucose 119 H POC Glucose 160 H 125 H Lactic Acid Calcium 8.3 L Phosphorus Magnesium Total Bilirubin AST ALT Alkaline Phosphatase Total Protein Albumin Triglycerides Arterial Blood Glucose Arterial Blood Ionized Calcium Digoxin Crossmatch 01/19/21 01/20/21 01/20/21 23:30 03:35 03:35 WBC 12.0 H RBC 2.62 L Hgb 8.3 L Hct 23.2 L MCV MCHC 36 H RDW Plt Count Lymph % (Auto) [place] % (Auto) Eos % (Auto) Lymph # (Auto) [place] # (Auto) Eos # (Auto) Seg Neutrophils % Seg Neuts % (Manual) Lymphocytes % (Manual) Monocytes % (Manual) Seg Neutrophils # Seg Neutrophils # Man Lymphocytes # (Manual) Monocytes # (Manual) PT INR ABG pH POC ABG pCO2 POC ABG pO2 ABG pO2 ABG HCO3 ABG O2 Saturation ABG Base Excess ABG Hemoglobin ABG Oxyhemoglobin ABG Sodium ABG Potassium ABG Chloride ABG Glucose Oxyhemoglobin Sodium Potassium Chloride Carbon Dioxide BUN 46 H Creatinine 5.9 H Glucose 128 H POC Glucose 127 H Lactic Acid Calcium Phosphorus Magnesium Total Bilirubin AST ALT Alkaline Phosphatase Total Protein Albumin Triglycerides Arterial Blood Glucose Arterial Blood Ionized Calcium Digoxin Crossmatch 01/20/21 01/20/21 01/20/21 06:19 11:55 18:00 WBC RBC Hgb Hct MCV MCHC RDW Plt Count Lymph % (Auto) [place] % (Auto) Eos % (Auto) Lymph # (Auto) [place] # (Auto) Eos # (Auto) Seg Neutrophils % Seg Neuts % (Manual) Lymphocytes % (Manual) Monocytes % (Manual) Seg Neutrophils # Seg Neutrophils # Man Lymphocytes # (Manual) Monocytes # (Manual) PT INR ABG pH POC ABG pCO2 POC ABG pO2 ABG pO2 ABG HCO3 ABG O2 Saturation ABG Base Excess ABG Hemoglobin ABG Oxyhemoglobin ABG Sodium ABG Potassium ABG Chloride ABG Glucose Oxyhemoglobin Sodium Potassium Chloride Carbon Dioxide BUN Creatinine Glucose POC Glucose 119 H 128 H 115 H Lactic Acid Calcium Phosphorus Magnesium Total Bilirubin AST ALT Alkaline Phosphatase Total Protein Albumin Triglycerides Arterial Blood Glucose Arterial Blood Ionized Calcium Digoxin Crossmatch 01/20/21 01/21/21 01/21/21 23:26 04:39 05:27 WBC RBC Hgb Hct MCV MCHC RDW Plt Count Lymph % (Auto) [place] % (Auto) Eos % (Auto) Lymph # (Auto) [place] # (Auto) Eos # (Auto) Seg Neutrophils % Seg Neuts % (Manual) Lymphocytes % (Manual) Monocytes % (Manual) Seg Neutrophils # Seg Neutrophils # Man Lymphocytes # (Manual) Monocytes # (Manual) PT INR ABG pH POC ABG pCO2 POC ABG pO2 ABG pO2 ABG HCO3 ABG O2 Saturation ABG Base Excess ABG Hemoglobin ABG Oxyhemoglobin ABG Sodium ABG Potassium ABG Chloride ABG Glucose Oxyhemoglobin Sodium Potassium Chloride Carbon Dioxide BUN 37 H Creatinine 5.3 H Glucose 109 H POC Glucose 108 H 107 H Lactic Acid Calcium Phosphorus 2.10 L Magnesium 1.50 L Total Bilirubin AST ALT Alkaline Phosphatase 143 H Total Protein 6.1 L Albumin 3.0 L Triglycerides Arterial Blood Glucose Arterial Blood Ionized Calcium Digoxin Crossmatch 01/21/21 01/21/21 01/22/21 11:35 17:53 00:20 WBC RBC Hgb Hct MCV MCHC RDW Plt Count Lymph % (Auto) [place] % (Auto) Eos % (Auto) Lymph # (Auto) [place] # (Auto) Eos # (Auto) Seg Neutrophils % Seg Neuts % (Manual) Lymphocytes % (Manual) Monocytes % (Manual) Seg Neutrophils # Seg Neutrophils # Man Lymphocytes # (Manual) Monocytes # (Manual) PT INR ABG pH POC ABG pCO2 POC ABG pO2 ABG pO2 ABG HCO3 ABG O2 Saturation ABG Base Excess ABG Hemoglobin ABG Oxyhemoglobin ABG Sodium ABG Potassium ABG Chloride ABG Glucose Oxyhemoglobin Sodium Potassium Chloride Carbon Dioxide BUN Creatinine Glucose POC Glucose 133 H 124 H 122 H Lactic Acid Calcium Phosphorus Magnesium Total Bilirubin AST ALT Alkaline Phosphatase Total Protein Albumin Triglycerides Arterial Blood Glucose Arterial Blood Ionized Calcium Digoxin Crossmatch 01/22/21 01/22/21 01/22/21 04:00 06:09 11:36 WBC RBC Hgb Hct MCV MCHC RDW Plt Count Lymph % (Auto) [place] % (Auto) Eos % (Auto) Lymph # (Auto) [place] # (Auto) Eos # (Auto) Seg Neutrophils % Seg Neuts % (Manual) Lymphocytes % (Manual) Monocytes % (Manual) Seg Neutrophils # Seg Neutrophils # Man Lymphocytes # (Manual) Monocytes # (Manual) PT INR ABG pH POC ABG pCO2 POC ABG pO2 ABG pO2 ABG HCO3 ABG O2 Saturation ABG Base Excess ABG Hemoglobin ABG Oxyhemoglobin ABG Sodium ABG Potassium ABG Chloride ABG Glucose Oxyhemoglobin Sodium Potassium Chloride Carbon Dioxide BUN 65 H Creatinine 8.2 H D Glucose 111 H POC Glucose 122 H 132 H Lactic Acid Calcium Phosphorus Magnesium Total Bilirubin AST ALT Alkaline Phosphatase Total Protein Albumin Triglycerides Arterial Blood Glucose Arterial Blood Ionized Calcium Digoxin Crossmatch 01/22/21 01/22/21 01/23/21 17:17 23:18 05:29 WBC RBC Hgb Hct MCV MCHC RDW Plt Count Lymph % (Auto) [place] % (Auto) Eos % (Auto) Lymph # (Auto) [place] # (Auto) Eos # (Auto) Seg Neutrophils % Seg Neuts % (Manual) Lymphocytes % (Manual) Monocytes % (Manual) Seg Neutrophils # Seg Neutrophils # Man Lymphocytes # (Manual) Monocytes # (Manual) PT INR ABG pH POC ABG pCO2 POC ABG pO2 ABG pO2 ABG HCO3 ABG O2 Saturation ABG Base Excess ABG Hemoglobin ABG Oxyhemoglobin ABG Sodium ABG Potassium ABG Chloride ABG Glucose Oxyhemoglobin Sodium Potassium Chloride Carbon Dioxide BUN Creatinine Glucose POC Glucose 135 H 128 H 129 H Lactic Acid Calcium Phosphorus Magnesium Total Bilirubin AST ALT Alkaline Phosphatase Total Protein Albumin Triglycerides Arterial Blood Glucose Arterial Blood Ionized Calcium Digoxin Crossmatch 01/23/21 01/23/21 01/23/21 05:45 11:28 16:39 WBC RBC Hgb Hct MCV MCHC RDW Plt Count Lymph % (Auto) [place] % (Auto) Eos % (Auto) Lymph # (Auto) [place] # (Auto) Eos # (Auto) Seg Neutrophils % Seg Neuts % (Manual) Lymphocytes % (Manual) Monocytes % (Manual) Seg Neutrophils # Seg Neutrophils # Man Lymphocytes # (Manual) Monocytes # (Manual) PT INR ABG pH POC ABG pCO2 POC ABG pO2 ABG pO2 ABG HCO3 ABG O2 Saturation ABG Base Excess ABG Hemoglobin ABG Oxyhemoglobin ABG Sodium ABG Potassium ABG Chloride ABG Glucose Oxyhemoglobin Sodium Potassium Chloride Carbon Dioxide BUN 96 H Creatinine 10.8 H Glucose 124 H POC Glucose 160 H 116 H Lactic Acid Calcium Phosphorus Magnesium 2.50 H Total Bilirubin AST ALT Alkaline Phosphatase Total Protein Albumin Triglycerides Arterial Blood Glucose Arterial Blood Ionized Calcium Digoxin Crossmatch 01/24/21 01/24/21 01/24/21 00:02 04:45 05:01 WBC RBC Hgb Hct MCV MCHC RDW Plt Count Lymph % (Auto) [place] % (Auto) Eos % (Auto) Lymph # (Auto) [place] # (Auto) Eos # (Auto) Seg Neutrophils % Seg Neuts % (Manual) Lymphocytes % (Manual) Monocytes % (Manual) Seg Neutrophils # Seg Neutrophils # Man Lymphocytes # (Manual) Monocytes # (Manual) PT INR ABG pH POC ABG pCO2 POC ABG pO2 ABG pO2 ABG HCO3 ABG O2 Saturation ABG Base Excess ABG Hemoglobin ABG Oxyhemoglobin ABG Sodium ABG Potassium ABG Chloride ABG Glucose Oxyhemoglobin Sodium Potassium 3.5 L Chloride Carbon Dioxide BUN 56 H Creatinine 7.7 H Glucose 102 H POC Glucose 120 H 108 H Lactic Acid Calcium Phosphorus Magnesium Total Bilirubin AST ALT Alkaline Phosphatase Total Protein Albumin Triglycerides Arterial Blood Glucose Arterial Blood Ionized Calcium Digoxin Crossmatch 01/24/21 01/24/21 01/24/21 12:03 17:07 23:55 WBC RBC Hgb Hct MCV MCHC RDW Plt Count Lymph % (Auto) [place] % (Auto) Eos % (Auto) Lymph # (Auto) [place] # (Auto) Eos # (Auto) Seg Neutrophils % Seg Neuts % (Manual) Lymphocytes % (Manual) Monocytes % (Manual) Seg Neutrophils # Seg Neutrophils # Man Lymphocytes # (Manual) Monocytes # (Manual) PT INR ABG pH POC ABG pCO2 POC ABG pO2 ABG pO2 ABG HCO3 ABG O2 Saturation ABG Base Excess ABG Hemoglobin ABG Oxyhemoglobin ABG Sodium ABG Potassium ABG Chloride ABG Glucose Oxyhemoglobin Sodium Potassium Chloride Carbon Dioxide BUN Creatinine Glucose POC Glucose 136 H 122 H 112 H Lactic Acid Calcium Phosphorus Magnesium Total Bilirubin AST ALT Alkaline Phosphatase Total Protein Albumin Triglycerides Arterial Blood Glucose Arterial Blood Ionized Calcium Digoxin Crossmatch 01/25/21 01/25/21 01/25/21 05:15 06:00 07:47 WBC RBC Hgb Hct MCV MCHC RDW Plt Count Lymph % (Auto) [place] % (Auto) Eos % (Auto) Lymph # (Auto) [place] # (Auto) Eos # (Auto) Seg Neutrophils % Seg Neuts % (Manual) Lymphocytes % (Manual) Monocytes % (Manual) Seg Neutrophils # Seg Neutrophils # Man Lymphocytes # (Manual) Monocytes # (Manual) PT INR ABG pH POC ABG pCO2 POC ABG pO2 ABG pO2 ABG HCO3 ABG O2 Saturation ABG Base Excess ABG Hemoglobin ABG Oxyhemoglobin ABG Sodium ABG Potassium ABG Chloride ABG Glucose Oxyhemoglobin Sodium 116 L* D Potassium Chloride 79.1 L Carbon Dioxide 17 L D BUN 72 H Creatinine 7.4 H Glucose 2242 H* POC Glucose 117 H 138 H Lactic Acid Calcium 6.7 L D Phosphorus Magnesium Total Bilirubin AST ALT Alkaline Phosphatase Total Protein Albumin Triglycerides Arterial Blood Glucose Arterial Blood Ionized Calcium Digoxin Crossmatch 01/25/21 01/25/21 01/25/21 08:35 11:49 18:42 WBC RBC Hgb Hct MCV MCHC RDW Plt Count Lymph % (Auto) [place] % (Auto) Eos % (Auto) Lymph # (Auto) [place] # (Auto) Eos # (Auto) Seg Neutrophils % Seg Neuts % (Manual) Lymphocytes % (Manual) Monocytes % (Manual) Seg Neutrophils # Seg Neutrophils # Man Lymphocytes # (Manual) Monocytes # (Manual) PT INR ABG pH POC ABG pCO2 POC ABG pO2 ABG pO2 ABG HCO3 ABG O2 Saturation ABG Base Excess ABG Hemoglobin ABG Oxyhemoglobin ABG Sodium ABG Potassium ABG Chloride ABG Glucose Oxyhemoglobin Sodium Potassium Chloride 97.0 L Carbon Dioxide BUN 92 H Creatinine 11.0 H Glucose 125 H POC Glucose 130 H 122 H Lactic Acid Calcium Phosphorus Magnesium Total Bilirubin AST ALT Alkaline Phosphatase Total Protein Albumin Triglycerides Arterial Blood Glucose Arterial Blood Ionized Calcium Digoxin Crossmatch 01/25/21 01/26/21 01/26/21 23:37 04:19 05:48 WBC RBC Hgb Hct MCV MCHC RDW Plt Count Lymph % (Auto) [place] % (Auto) Eos % (Auto) Lymph # (Auto) [place] # (Auto) Eos # (Auto) Seg Neutrophils % Seg Neuts % (Manual) Lymphocytes % (Manual) Monocytes % (Manual) Seg Neutrophils # Seg Neutrophils # Man Lymphocytes # (Manual) Monocytes # (Manual) PT INR ABG pH POC ABG pCO2 POC ABG pO2 ABG pO2 ABG HCO3 ABG O2 Saturation ABG Base Excess ABG Hemoglobin ABG Oxyhemoglobin ABG Sodium ABG Potassium ABG Chloride ABG Glucose Oxyhemoglobin Sodium Potassium Chloride Carbon Dioxide BUN 49 H Creatinine 7.1 H Glucose POC Glucose 144 H 125 H Lactic Acid Calcium Phosphorus Magnesium 1.50 L Total Bilirubin AST ALT Alkaline Phosphatase Total Protein Albumin Triglycerides Arterial Blood Glucose Arterial Blood Ionized Calcium Digoxin Crossmatch 01/26/21 01/26/21 01/27/21 11:16 18:35 00:01 WBC RBC Hgb Hct MCV MCHC RDW Plt Count Lymph % (Auto) [place] % (Auto) Eos % (Auto) Lymph # (Auto) [place] # (Auto) Eos # (Auto) Seg Neutrophils % Seg Neuts % (Manual) Lymphocytes % (Manual) Monocytes % (Manual) Seg Neutrophils # Seg Neutrophils # Man Lymphocytes # (Manual) Monocytes # (Manual) PT INR ABG pH POC ABG pCO2 POC ABG pO2 ABG pO2 ABG HCO3 ABG O2 Saturation ABG Base Excess ABG Hemoglobin ABG Oxyhemoglobin ABG Sodium ABG Potassium ABG Chloride ABG Glucose Oxyhemoglobin Sodium Potassium Chloride Carbon Dioxide BUN Creatinine Glucose POC Glucose 122 H 127 H 130 H Lactic Acid Calcium Phosphorus Magnesium Total Bilirubin AST ALT Alkaline Phosphatase Total Protein Albumin Triglycerides Arterial Blood Glucose Arterial Blood Ionized Calcium Digoxin Crossmatch 01/27/21 01/27/21 01/27/21 04:19 04:19 05:25 WBC 12.4 H RBC 2.79 L Hgb 8.6 L Hct 25.1 L MCV MCHC RDW 16.1 H Plt Count Lymph % (Auto) 7.5 L [place] % (Auto) 9.3 H Eos % (Auto) 4.8 H Lymph # (Auto) 0.9 L [place] # (Auto) 1.1 H Eos # (Auto) 0.6 H Seg Neutrophils % 78.0 H Seg Neuts % (Manual) Lymphocytes % (Manual) Monocytes % (Manual) Seg Neutrophils # 9.7 H Seg Neutrophils # Man Lymphocytes # (Manual) Monocytes # (Manual) PT INR ABG pH POC ABG pCO2 POC ABG pO2 ABG pO2 ABG HCO3 ABG O2 Saturation ABG Base Excess ABG Hemoglobin ABG Oxyhemoglobin ABG Sodium ABG Potassium ABG Chloride ABG Glucose Oxyhemoglobin Sodium Potassium Chloride 97.9 L Carbon Dioxide BUN 76 H Creatinine 9.9 H Glucose 111 H POC Glucose 129 H Lactic Acid Calcium Phosphorus Magnesium Total Bilirubin AST ALT Alkaline Phosphatase Total Protein Albumin Triglycerides Arterial Blood Glucose Arterial Blood Ionized Calcium Digoxin Crossmatch 01/27/21 01/27/21 01/27/21 11:30 17:08 23:28 WBC RBC Hgb Hct MCV MCHC RDW Plt Count Lymph % (Auto) [place] % (Auto) Eos % (Auto) Lymph # (Auto) [place] # (Auto) Eos # (Auto) Seg Neutrophils % Seg Neuts % (Manual) Lymphocytes % (Manual) Monocytes % (Manual) Seg Neutrophils # Seg Neutrophils # Man Lymphocytes # (Manual) Monocytes # (Manual) PT INR ABG pH POC ABG pCO2 POC ABG pO2 ABG pO2 ABG HCO3 ABG O2 Saturation ABG Base Excess ABG Hemoglobin ABG Oxyhemoglobin ABG Sodium ABG Potassium ABG Chloride ABG Glucose Oxyhemoglobin Sodium Potassium Chloride Carbon Dioxide BUN Creatinine Glucose POC Glucose 128 H 158 H 114 H Lactic Acid Calcium Phosphorus Magnesium Total Bilirubin AST ALT Alkaline Phosphatase Total Protein Albumin Triglycerides Arterial Blood Glucose Arterial Blood Ionized Calcium Digoxin Crossmatch 01/28/21 01/28/21 01/28/21 05:17 11:27 18:01 WBC RBC Hgb Hct MCV MCHC RDW Plt Count Lymph % (Auto) [place] % (Auto) Eos % (Auto) Lymph # (Auto) [place] # (Auto) Eos # (Auto) Seg Neutrophils % Seg Neuts % (Manual) Lymphocytes % (Manual) Monocytes % (Manual) Seg Neutrophils # Seg Neutrophils # Man Lymphocytes # (Manual) Monocytes # (Manual) PT INR ABG pH POC ABG pCO2 POC ABG pO2 ABG pO2 ABG HCO3 ABG O2 Saturation ABG Base Excess ABG Hemoglobin ABG Oxyhemoglobin ABG Sodium ABG Potassium ABG Chloride ABG Glucose Oxyhemoglobin Sodium Potassium Chloride Carbon Dioxide BUN Creatinine Glucose POC Glucose 113 H 134 H 111 H Lactic Acid Calcium Phosphorus Magnesium Total Bilirubin AST ALT Alkaline Phosphatase Total Protein Albumin Triglycerides Arterial Blood Glucose Arterial Blood Ionized Calcium Digoxin Crossmatch 01/29/21 01/29/21 01/29/21 04:54 06:45 11:10 WBC RBC Hgb Hct MCV MCHC RDW Plt Count Lymph % (Auto) [place] % (Auto) Eos % (Auto) Lymph # (Auto) [place] # (Auto) Eos # (Auto) Seg Neutrophils % Seg Neuts % (Manual) Lymphocytes % (Manual) Monocytes % (Manual) Seg Neutrophils # Seg Neutrophils # Man Lymphocytes # (Manual) Monocytes # (Manual) PT INR ABG pH POC ABG pCO2 POC ABG pO2 ABG pO2 ABG HCO3 ABG O2 Saturation ABG Base Excess ABG Hemoglobin ABG Oxyhemoglobin ABG Sodium ABG Potassium ABG Chloride ABG Glucose Oxyhemoglobin Sodium Potassium 3.4 L Chloride Carbon Dioxide BUN 51 H Creatinine 6.9 H Glucose 120 H POC Glucose 111 H 106 H Lactic Acid Calcium Phosphorus 2.10 L Magnesium Total Bilirubin AST ALT Alkaline Phosphatase 182 H Total Protein 6.0 L Albumin 2.9 L Triglycerides Arterial Blood Glucose Arterial Blood Ionized Calcium Digoxin Crossmatch 01/29/21 01/30/21 01/30/21 16:47 04:15 06:55 WBC RBC Hgb Hct MCV MCHC RDW Plt Count Lymph % (Auto) [place] % (Auto) Eos % (Auto) Lymph # (Auto) [place] # (Auto) Eos # (Auto) Seg Neutrophils % Seg Neuts % (Manual) Lymphocytes % (Manual) Monocytes % (Manual) Seg Neutrophils # Seg Neutrophils # Man Lymphocytes # (Manual) Monocytes # (Manual) PT INR ABG pH POC ABG pCO2 POC ABG pO2 ABG pO2 ABG HCO3 ABG O2 Saturation ABG Base Excess ABG Hemoglobin ABG Oxyhemoglobin ABG Sodium ABG Potassium ABG Chloride ABG Glucose Oxyhemoglobin Sodium Potassium Chloride Carbon Dioxide BUN 73 H Creatinine 9.2 H Glucose 119 H POC Glucose 110 H 126 H Lactic Acid Calcium Phosphorus 4.70 H D Magnesium Total Bilirubin AST ALT Alkaline Phosphatase Total Protein Albumin Triglycerides Arterial Blood Glucose Arterial Blood Ionized Calcium Digoxin Crossmatch 01/30/21 01/31/21 01/31/21 18:25 00:51 07:15 WBC RBC Hgb Hct MCV MCHC RDW Plt Count Lymph % (Auto) [place] % (Auto) Eos % (Auto) Lymph # (Auto) [place] # (Auto) Eos # (Auto) Seg Neutrophils % Seg Neuts % (Manual) Lymphocytes % (Manual) Monocytes % (Manual) Seg Neutrophils # Seg Neutrophils # Man Lymphocytes # (Manual) Monocytes # (Manual) PT INR ABG pH POC ABG pCO2 POC ABG pO2 ABG pO2 ABG HCO3 ABG O2 Saturation ABG Base Excess ABG Hemoglobin ABG Oxyhemoglobin ABG Sodium ABG Potassium ABG Chloride ABG Glucose Oxyhemoglobin Sodium Potassium Chloride Carbon Dioxide BUN Creatinine Glucose POC Glucose 117 H 134 H 134 H Lactic Acid Calcium Phosphorus Magnesium Total Bilirubin AST ALT Alkaline Phosphatase Total Protein Albumin Triglycerides Arterial Blood Glucose Arterial Blood Ionized Calcium Digoxin Crossmatch 01/31/21 01/31/21 02/01/21 11:45 23:15 05:51 WBC RBC Hgb Hct MCV MCHC RDW Plt Count Lymph % (Auto) [place] % (Auto) Eos % (Auto) Lymph # (Auto) [place] # (Auto) Eos # (Auto) Seg Neutrophils % Seg Neuts % (Manual) Lymphocytes % (Manual) Monocytes % (Manual) Seg Neutrophils # Seg Neutrophils # Man Lymphocytes # (Manual) Monocytes # (Manual) PT INR ABG pH POC ABG pCO2 POC ABG pO2 ABG pO2 ABG HCO3 ABG O2 Saturation ABG Base Excess ABG Hemoglobin ABG Oxyhemoglobin ABG Sodium ABG Potassium ABG Chloride ABG Glucose Oxyhemoglobin Sodium Potassium Chloride Carbon Dioxide BUN Creatinine Glucose POC Glucose 119 H 120 H 125 H Lactic Acid Calcium Phosphorus Magnesium Total Bilirubin AST ALT Alkaline Phosphatase Total Protein Albumin Triglycerides Arterial Blood Glucose Arterial Blood Ionized Calcium Digoxin Crossmatch 02/01/21 02/02/21 02/02/21 22:05 03:25 06:16 WBC RBC Hgb Hct MCV MCHC RDW Plt Count Lymph % (Auto) [place] % (Auto) Eos % (Auto) Lymph # (Auto) [place] # (Auto) Eos # (Auto) Seg Neutrophils % Seg Neuts % (Manual) Lymphocytes % (Manual) Monocytes % (Manual) Seg Neutrophils # Seg Neutrophils # Man Lymphocytes # (Manual) Monocytes # (Manual) PT INR ABG pH POC ABG pCO2 POC ABG pO2 ABG pO2 ABG HCO3 ABG O2 Saturation ABG Base Excess ABG Hemoglobin ABG Oxyhemoglobin ABG Sodium ABG Potassium ABG Chloride ABG Glucose Oxyhemoglobin Sodium Potassium 3.3 L Chloride Carbon Dioxide BUN 38 H Creatinine 5.8 H Glucose 115 H POC Glucose 118 H 130 H Lactic Acid Calcium Phosphorus 1.80 L Magnesium 1.60 L Total Bilirubin AST ALT Alkaline Phosphatase Total Protein Albumin Triglycerides Arterial Blood Glucose Arterial Blood Ionized Calcium Digoxin Crossmatch 02/02/21 02/02/21 02/03/21 17:29 21:53 04:50 WBC RBC Hgb Hct MCV MCHC RDW Plt Count Lymph % (Auto) [place] % (Auto) Eos % (Auto) Lymph # (Auto) [place] # (Auto) Eos # (Auto) Seg Neutrophils % Seg Neuts % (Manual) Lymphocytes % (Manual) Monocytes % (Manual) Seg Neutrophils # Seg Neutrophils # Man Lymphocytes # (Manual) Monocytes # (Manual) PT INR ABG pH POC ABG pCO2 POC ABG pO2 ABG pO2 ABG HCO3 ABG O2 Saturation ABG Base Excess ABG Hemoglobin ABG Oxyhemoglobin ABG Sodium ABG Potassium ABG Chloride ABG Glucose Oxyhemoglobin Sodium Potassium Chloride Carbon Dioxide BUN Creatinine Glucose POC Glucose 115 H 120 H Lactic Acid Calcium Phosphorus Magnesium 1.60 L Total Bilirubin AST ALT Alkaline Phosphatase Total Protein Albumin Triglycerides Arterial Blood Glucose Arterial Blood Ionized Calcium Digoxin Crossmatch 02/03/21 02/03/21 02/03/21 06:12 18:25 23:47 WBC RBC Hgb Hct MCV MCHC RDW Plt Count Lymph % (Auto) [place] % (Auto) Eos % (Auto) Lymph # (Auto) [place] # (Auto) Eos # (Auto) Seg Neutrophils % Seg Neuts % (Manual) Lymphocytes % (Manual) Monocytes % (Manual) Seg Neutrophils # Seg Neutrophils # Man Lymphocytes # (Manual) Monocytes # (Manual) PT INR ABG pH POC ABG pCO2 POC ABG pO2 ABG pO2 ABG HCO3 ABG O2 Saturation ABG Base Excess ABG Hemoglobin ABG Oxyhemoglobin ABG Sodium ABG Potassium ABG Chloride ABG Glucose Oxyhemoglobin Sodium Potassium Chloride Carbon Dioxide BUN Creatinine Glucose POC Glucose 112 H 112 H 131 H Lactic Acid Calcium Phosphorus Magnesium Total Bilirubin AST ALT Alkaline Phosphatase Total Protein Albumin Triglycerides Arterial Blood Glucose Arterial Blood Ionized Calcium Digoxin Crossmatch 02/04/21 02/04/21 02/04/21 05:40 09:37 12:03 WBC RBC Hgb Hct MCV MCHC RDW Plt Count Lymph % (Auto) [place] % (Auto) Eos % (Auto) Lymph # (Auto) [place] # (Auto) Eos # (Auto) Seg Neutrophils % Seg Neuts % (Manual) Lymphocytes % (Manual) Monocytes % (Manual) Seg Neutrophils # Seg Neutrophils # Man Lymphocytes # (Manual) Monocytes # (Manual) PT INR ABG pH POC ABG pCO2 POC ABG pO2 ABG pO2 ABG HCO3 ABG O2 Saturation ABG Base Excess ABG Hemoglobin ABG Oxyhemoglobin ABG Sodium ABG Potassium ABG Chloride ABG Glucose Oxyhemoglobin Sodium 131 L D 135 L Potassium 3.0 L 3.1 L Chloride 93.4 L 96.7 L Carbon Dioxide BUN 46 H 52 H Creatinine 6.5 H 7.3 H Glucose 363 H 128 H POC Glucose 129 H Lactic Acid Calcium Phosphorus 2.40 L Magnesium 1.50 L 1.60 L Total Bilirubin AST ALT Alkaline Phosphatase Total Protein Albumin Triglycerides Arterial Blood Glucose Arterial Blood Ionized Calcium Digoxin Crossmatch 02/04/21 02/04/21 02/05/21 17:25 21:38 05:19 WBC RBC Hgb Hct MCV MCHC RDW Plt Count Lymph % (Auto) [place] % (Auto) Eos % (Auto) Lymph # (Auto) [place] # (Auto) Eos # (Auto) Seg Neutrophils % Seg Neuts % (Manual) Lymphocytes % (Manual) Monocytes % (Manual) Seg Neutrophils # Seg Neutrophils # Man Lymphocytes # (Manual) Monocytes # (Manual) PT INR ABG pH POC ABG pCO2 POC ABG pO2 ABG pO2 ABG HCO3 ABG O2 Saturation ABG Base Excess ABG Hemoglobin ABG Oxyhemoglobin ABG Sodium ABG Potassium ABG Chloride ABG Glucose Oxyhemoglobin Sodium Potassium Chloride Carbon Dioxide BUN Creatinine Glucose POC Glucose 132 H 108 H 116 H Lactic Acid Calcium Phosphorus Magnesium Total Bilirubin AST ALT Alkaline Phosphatase Total Protein Albumin Triglycerides Arterial Blood Glucose Arterial Blood Ionized Calcium Digoxin Crossmatch 02/05/21 02/05/21 02/05/21 06:30 11:25 16:20 WBC RBC Hgb Hct MCV MCHC RDW Plt Count Lymph % (Auto) [place] % (Auto) Eos % (Auto) Lymph # (Auto) [place] # (Auto) Eos # (Auto) Seg Neutrophils % Seg Neuts % (Manual) Lymphocytes % (Manual) Monocytes % (Manual) Seg Neutrophils # Seg Neutrophils # Man Lymphocytes # (Manual) Monocytes # (Manual) PT INR ABG pH POC ABG pCO2 POC ABG pO2 ABG pO2 ABG HCO3 ABG O2 Saturation ABG Base Excess ABG Hemoglobin ABG Oxyhemoglobin ABG Sodium ABG Potassium ABG Chloride ABG Glucose Oxyhemoglobin Sodium Potassium 3.2 L Chloride 96.5 L Carbon Dioxide BUN 76 H Creatinine 9.6 H Glucose 112 H POC Glucose 118 H 123 H Lactic Acid Calcium Phosphorus Magnesium 1.50 L Total Bilirubin AST ALT Alkaline Phosphatase 177 H Total Protein 6.0 L Albumin 2.9 L Triglycerides Arterial Blood Glucose Arterial Blood Ionized Calcium Digoxin Crossmatch 02/06/21 02/06/21 02/06/21 05:42 06:42 08:18 WBC RBC Hgb Hct MCV MCHC RDW Plt Count Lymph % (Auto) [place] % (Auto) Eos % (Auto) Lymph # (Auto) [place] # (Auto) Eos # (Auto) Seg Neutrophils % Seg Neuts % (Manual) Lymphocytes % (Manual) Monocytes % (Manual) Seg Neutrophils # Seg Neutrophils # Man Lymphocytes # (Manual) Monocytes # (Manual) PT INR ABG pH POC ABG pCO2 POC ABG pO2 ABG pO2 ABG HCO3 ABG O2 Saturation ABG Base Excess ABG Hemoglobin ABG Oxyhemoglobin ABG Sodium ABG Potassium ABG Chloride ABG Glucose Oxyhemoglobin Sodium 133 L Potassium Chloride 92.7 L Carbon Dioxide 19 L BUN 100 H Creatinine 11.9 H Glucose 114 H POC Glucose 118 H 114 H Lactic Acid Calcium Phosphorus 4.70 H Magnesium 1.60 L Total Bilirubin AST ALT Alkaline Phosphatase Total Protein Albumin Triglycerides Arterial Blood Glucose Arterial Blood Ionized Calcium Digoxin Crossmatch 02/06/21 02/07/21 02/07/21 23:22 04:35 04:35 WBC RBC 2.52 L Hgb 8.0 L Hct 22.5 L MCV MCHC 36 H RDW 16.7 H Plt Count Lymph % (Auto) 12.7 L [place] % (Auto) 10.2 H Eos % (Auto) 5.0 H Lymph # (Auto) [place] # (Auto) 1.0 H Eos # (Auto) 0.5 H Seg Neutrophils % 71.6 H Seg Neuts % (Manual) Lymphocytes % (Manual) Monocytes % (Manual) Seg Neutrophils # Seg Neutrophils # Man Lymphocytes # (Manual) Monocytes # (Manual) PT INR ABG pH POC ABG pCO2 POC ABG pO2 ABG pO2 ABG HCO3 ABG O2 Saturation ABG Base Excess ABG Hemoglobin ABG Oxyhemoglobin ABG Sodium ABG Potassium ABG Chloride ABG Glucose Oxyhemoglobin Sodium 135 L Potassium 3.4 L Chloride 95.5 L Carbon Dioxide BUN 59 H Creatinine 8.5 H Glucose POC Glucose 117 H Lactic Acid Calcium Phosphorus Magnesium Total Bilirubin AST ALT Alkaline Phosphatase Total Protein Albumin Triglycerides Arterial Blood Glucose Arterial Blood Ionized Calcium Digoxin Crossmatch 02/07/21 02/07/21 02/07/21 04:35 11:31 22:49 WBC RBC Hgb Hct MCV MCHC RDW Plt Count Lymph % (Auto) [place] % (Auto) Eos % (Auto) Lymph # (Auto) [place] # (Auto) Eos # (Auto) Seg Neutrophils % Seg Neuts % (Manual) Lymphocytes % (Manual) Monocytes % (Manual) Seg Neutrophils # Seg Neutrophils # Man Lymphocytes # (Manual) Monocytes # (Manual) PT INR ABG pH POC ABG pCO2 POC ABG pO2 ABG pO2 ABG HCO3 ABG O2 Saturation ABG Base Excess ABG Hemoglobin ABG Oxyhemoglobin ABG Sodium ABG Potassium ABG Chloride ABG Glucose Oxyhemoglobin Sodium Potassium Chloride Carbon Dioxide BUN Creatinine Glucose POC Glucose 117 H 122 H Lactic Acid Calcium Phosphorus Magnesium 1.60 L Total Bilirubin AST ALT Alkaline Phosphatase Total Protein Albumin Triglycerides Arterial Blood Glucose Arterial Blood Ionized Calcium Digoxin Crossmatch 02/08/21 02/08/21 02/08/21 04:56 06:45 22:38 WBC RBC Hgb Hct MCV MCHC RDW Plt Count Lymph % (Auto) [place] % (Auto) Eos % (Auto) Lymph # (Auto) [place] # (Auto) Eos # (Auto) Seg Neutrophils % Seg Neuts % (Manual) Lymphocytes % (Manual) Monocytes % (Manual) Seg Neutrophils # Seg Neutrophils # Man Lymphocytes # (Manual) Monocytes # (Manual) PT INR ABG pH POC ABG pCO2 POC ABG pO2 ABG pO2 ABG HCO3 ABG O2 Saturation ABG Base Excess ABG Hemoglobin ABG Oxyhemoglobin ABG Sodium ABG Potassium ABG Chloride ABG Glucose Oxyhemoglobin Sodium 134 L Potassium 3.5 L Chloride 94.2 L Carbon Dioxide BUN 78 H Creatinine 11.4 H Glucose 101 H POC Glucose 113 H 128 H Lactic Acid Calcium Phosphorus Magnesium Total Bilirubin AST ALT Alkaline Phosphatase Total Protein Albumin Triglycerides Arterial Blood Glucose Arterial Blood Ionized Calcium Digoxin Crossmatch 02/09/21 02/09/21 02/09/21 04:43 07:44 11:33 WBC RBC Hgb Hct MCV MCHC RDW Plt Count Lymph % (Auto) [place] % (Auto) Eos % (Auto) Lymph # (Auto) [place] # (Auto) Eos # (Auto) Seg Neutrophils % Seg Neuts % (Manual) Lymphocytes % (Manual) Monocytes % (Manual) Seg Neutrophils # Seg Neutrophils # Man Lymphocytes # (Manual) Monocytes # (Manual) PT INR ABG pH POC ABG pCO2 POC ABG pO2 ABG pO2 ABG HCO3 ABG O2 Saturation ABG Base Excess ABG Hemoglobin ABG Oxyhemoglobin ABG Sodium ABG Potassium ABG Chloride ABG Glucose Oxyhemoglobin Sodium 135 L Potassium 3.2 L Chloride 93.0 L Carbon Dioxide BUN 42 H Creatinine 8.1 H Glucose 128 H POC Glucose 115 H 127 H Lactic Acid Calcium Phosphorus 2.20 L D Magnesium Total Bilirubin AST ALT Alkaline Phosphatase Total Protein Albumin Triglycerides Arterial Blood Glucose Arterial Blood Ionized Calcium Digoxin Crossmatch 02/09/21 02/09/21 02/10/21 17:31 22:15 06:00 WBC RBC Hgb Hct MCV MCHC RDW Plt Count Lymph % (Auto) [place] % (Auto) Eos % (Auto) Lymph # (Auto) [place] # (Auto) Eos # (Auto) Seg Neutrophils % Seg Neuts % (Manual) Lymphocytes % (Manual) Monocytes % (Manual) Seg Neutrophils # Seg Neutrophils # Man Lymphocytes # (Manual) Monocytes # (Manual) PT INR ABG pH POC ABG pCO2 POC ABG pO2 ABG pO2 ABG HCO3 ABG O2 Saturation ABG Base Excess ABG Hemoglobin ABG Oxyhemoglobin ABG Sodium ABG Potassium ABG Chloride ABG Glucose Oxyhemoglobin Sodium Potassium Chloride 95.4 L Carbon Dioxide BUN 65 H Creatinine 10.2 H Glucose 114 H POC Glucose 114 H 117 H Lactic Acid Calcium Phosphorus 2.20 L Magnesium 2.80 H Total Bilirubin AST ALT Alkaline Phosphatase Total Protein Albumin Triglycerides Arterial Blood Glucose Arterial Blood Ionized Calcium Digoxin Crossmatch 02/10/21 02/10/21 02/10/21 06:21 11:45 22:48 WBC RBC Hgb Hct MCV MCHC RDW Plt Count Lymph % (Auto) [place] % (Auto) Eos % (Auto) Lymph # (Auto) [place] # (Auto) Eos # (Auto) Seg Neutrophils % Seg Neuts % (Manual) Lymphocytes % (Manual) Monocytes % (Manual) Seg Neutrophils # Seg Neutrophils # Man Lymphocytes # (Manual) Monocytes # (Manual) PT INR ABG pH POC ABG pCO2 POC ABG pO2 ABG pO2 ABG HCO3 ABG O2 Saturation ABG Base Excess ABG Hemoglobin ABG Oxyhemoglobin ABG Sodium ABG Potassium ABG Chloride ABG Glucose Oxyhemoglobin Sodium 135 L Potassium 3.1 L Chloride 96.3 L Carbon Dioxide BUN 29 H Creatinine 6.2 H Glucose 115 H POC Glucose 111 H 129 H Lactic Acid Calcium 8.0 L Phosphorus Magnesium Total Bilirubin AST ALT Alkaline Phosphatase Total Protein Albumin Triglycerides Arterial Blood Glucose Arterial Blood Ionized Calcium Digoxin Crossmatch 02/10/21 02/11/21 02/11/21 23:58 04:20 06:23 WBC RBC Hgb Hct MCV MCHC RDW Plt Count Lymph % (Auto) [place] % (Auto) Eos % (Auto) Lymph # (Auto) [place] # (Auto) Eos # (Auto) Seg Neutrophils % Seg Neuts % (Manual) Lymphocytes % (Manual) Monocytes % (Manual) Seg Neutrophils # Seg Neutrophils # Man Lymphocytes # (Manual) Monocytes # (Manual) PT INR ABG pH POC ABG pCO2 POC ABG pO2 ABG pO2 ABG HCO3 ABG O2 Saturation ABG Base Excess ABG Hemoglobin ABG Oxyhemoglobin ABG Sodium ABG Potassium ABG Chloride ABG Glucose Oxyhemoglobin Sodium 136 L Potassium 3.3 L Chloride 97.4 L Carbon Dioxide BUN 34 H Creatinine 6.9 H Glucose 116 H POC Glucose 125 H 120 H Lactic Acid Calcium Phosphorus 2.00 L Magnesium Total Bilirubin AST ALT Alkaline Phosphatase Total Protein Albumin Triglycerides Arterial Blood Glucose Arterial Blood Ionized Calcium Digoxin Crossmatch 02/11/21 02/11/21 02/11/21 11:25 17:31 23:23 WBC RBC Hgb Hct MCV MCHC RDW Plt Count Lymph % (Auto) [place] % (Auto) Eos % (Auto) Lymph # (Auto) [place] # (Auto) Eos # (Auto) Seg Neutrophils % Seg Neuts % (Manual) Lymphocytes % (Manual) Monocytes % (Manual) Seg Neutrophils # Seg Neutrophils # Man Lymphocytes # (Manual) Monocytes # (Manual) PT INR ABG pH POC ABG pCO2 POC ABG pO2 ABG pO2 ABG HCO3 ABG O2 Saturation ABG Base Excess ABG Hemoglobin ABG Oxyhemoglobin ABG Sodium ABG Potassium ABG Chloride ABG Glucose Oxyhemoglobin Sodium Potassium Chloride Carbon Dioxide BUN Creatinine Glucose POC Glucose 125 H 115 H 119 H Lactic Acid Calcium Phosphorus Magnesium Total Bilirubin AST ALT Alkaline Phosphatase Total Protein Albumin Triglycerides Arterial Blood Glucose Arterial Blood Ionized Calcium Digoxin Crossmatch 02/12/21 02/12/21 02/12/21 11:30 11:47 17:09 WBC RBC Hgb Hct MCV MCHC RDW Plt Count Lymph % (Auto) [place] % (Auto) Eos % (Auto) Lymph # (Auto) [place] # (Auto) Eos # (Auto) Seg Neutrophils % Seg Neuts % (Manual) Lymphocytes % (Manual) Monocytes % (Manual) Seg Neutrophils # Seg Neutrophils # Man Lymphocytes # (Manual) Monocytes # (Manual) PT INR ABG pH POC ABG pCO2 POC ABG pO2 ABG pO2 ABG HCO3 ABG O2 Saturation ABG Base Excess ABG Hemoglobin ABG Oxyhemoglobin ABG Sodium ABG Potassium ABG Chloride ABG Glucose Oxyhemoglobin Sodium 135 L Potassium Chloride 97.0 L Carbon Dioxide BUN 63 H Creatinine 9.8 H Glucose 113 H POC Glucose 117 H 116 H Lactic Acid Calcium Phosphorus Magnesium Total Bilirubin AST ALT Alkaline Phosphatase Total Protein Albumin Triglycerides Arterial Blood Glucose Arterial Blood Ionized Calcium Digoxin Crossmatch 02/13/21 02/13/21 00:27 06:05 WBC RBC Hgb Hct MCV MCHC RDW Plt Count Lymph % (Auto) [place] % (Auto) Eos % (Auto) Lymph # (Auto) [place] # (Auto) Eos # (Auto) Seg Neutrophils % Seg Neuts % (Manual) Lymphocytes % (Manual) Monocytes % (Manual) Seg Neutrophils # Seg Neutrophils # Man Lymphocytes # (Manual) Monocytes # (Manual) PT INR ABG pH POC ABG pCO2 POC ABG pO2 ABG pO2 ABG HCO3 ABG O2 Saturation ABG Base Excess ABG Hemoglobin ABG Oxyhemoglobin ABG Sodium ABG Potassium ABG Chloride ABG Glucose Oxyhemoglobin Sodium Potassium Chloride Carbon Dioxide 20 L BUN 80 H Creatinine 11.5 H Glucose 111 H POC Glucose 110 H Lactic Acid Calcium Phosphorus 5.00 H D Magnesium Total Bilirubin AST ALT Alkaline Phosphatase 149 H Total Protein 5.9 L Albumin 3.2 L Triglycerides Arterial Blood Glucose Arterial Blood Ionized Calcium Digoxin Crossmatch Allied health notes reviewed: nursing
[2021-02-13] MEDS: FAMOTIDINE 20 MG/2 ML INJ IV SCH ×2 (15:40→21:59)
[2021-02-13] MEDS: HEPARIN 5,000 UNIT/1 ML VIAL SUB-Q SCH ×2 (15:43→21:58)
[2021-02-13] MEDS: FLUTICASONE PROPIONATE NASAL SPRAY 16 GM NS SCH (15:43)
[2021-02-13] MEDS ORDERED: TOTAL PARENTERAL NUTRITION 2,016 ML IV SCH (20:00)
[2021-02-13] MEDS ORDERED: FAT EMULSIONS 20% 250 ML IV SCH (20:00)
[2021-02-13] MEDS: INSULIN GLARGINE 100 UNITS/ML SUB-Q SCH (22:07)
[2021-02-14] MEDS: INSULIN LISPRO 100 UNIT/ML SUB-Q SCH ×4 (00:38→18:32)
[2021-02-14] MEDS: hydrALAZINE 20 MG/1 ML INJ IV SCH ×6 (01:44→22:35)
[2021-02-14] MEDS: METOPROLOL TARTRATE 5 MG/5 ML INJ IV SCH ×3 (01:45→11:19)
[2021-02-14] MEDS: ONDANSETRON 4 MG/2 ML INJ IV PRN (03:21)
[2021-02-14] MEDS: DIPHENOXYLATE/ATROPINE TAB PO SCH ×3 (06:30→18:31)
--- NOTE | 2021-02-14 08:13 | Progress Note ---
Assessment and Plan Assessment and plan: Severe Sepsis with shock Streptococcus bovis bacteremia/Prevotella bacteremia Gwendolyn albicans tracheal aspirate Small bowel obstruction/necrotic bowel s/p ex lap with extensive lysis of adhesions, 2 small bowel resections with primary anastomosis, right hemicolectomy, jejunal colonic anastomosis, segmental small bowel resection Postoperative ileus Atrial fibrillation with RVR Leukocytosis Hypochloremia Gwendolyn albicans in tracheal aspirate from 12/24 ESRD on PD, PermCath to be placed Transaminitis Systolic CHF(EF 35%) Crohn's disease Hypertension Hypokalemia and hypophosphatemia -[facility], surgery, infectious disease, nephrology, vascular surgery, cardiology consulted, appreciate recommendations -12/24 S/p ex lap with extensive expectations, 2 small bowel resections with primary anastomosis with surgery on 12/23 -s/p PICC and Permacath placement with vascular surgery on 12/27 -Extubated on 12/28, reintubated 12/31 for respiratory distress and extubated 01/08 -12/29 echocardiogram shows moderate concentric LVH, small pericardial effusion, transmitral Doppler flow pattern is grade 1 abnormal relaxation pattern, left- ventricular systolic function normal, LVEF 50 to 55%, no wall motion abnormalities. -01/01 CT abdomen/pelvis shows small pericardial effusion, mild coronary artery atherosclerotic calcification, small bilateral pleural effusions with associated volume loss, no convincing evidence of bowel obstruction or inflammation, postoperative changes from interval/recent midline laparotomy with a moderate amount of free fluid throughout the abdomen, small amount of dependent free air presumably postoperative -01/02 s/p ex lap, resection of perforated anastamosis, washout and abthera wound vac placement. -01/04 s/p ex lap with right hemicolectomy. -01/06 s/p exploratory laparotomy, Jejunal colonic anastomosis, Segmental small bowel resection. -s/p Vasopressor support with Levophed and vasopressin -Transitioned to HD from PD -HD per nephro, Epogen with HD -Strict NPO -cont TPN, Octreotide drip -s/p NGT to LIWS, now placed on G-tube for decompression - s/p rectal tube -s/p IV antibiotics -Tobacco abuse cessation counseling -Trend CBC, BMP DVT/GI prophylaxis: PPI, heparin subcu, SCDs to bilateral lower extremities while in bed Brief Course: This is a 60 YO Male with ESRD on PD, GERD, Crohn's Disease, Nicotine Dependence, HTN, Systolic CHF(EF 35%) who presented to the emergency department on 12/22 with complaints of abdominal pain which began shortly after e ating fast food rated 10/10 which is periumbilical, constant, associated with fever, nausea and multiple sites of vomiting and self-reported inability to undergo PD. In the emergency room patient underwent a CT scan of the abdomen/pelvis which revealed evidence of partial small bowel obstruction, s ymptoms were consistent with bacterial peritonitis. Patient was admitted to the hospital service with sepsis, peritonitis, and small bowel obstruction with consults to general surgery, nephrology, infectious disease and [facility]. Daily clinical course: 12/23. Patient had temperature 101.2 F, tachycardia and elevated lactic acid on admission. Meet sepsis criteria. Started on IV antibiotics. ID has been consulted. Surgery consulted this a.m.-advised laparoscopy. He remains on NG tube connected to suction. 12/24. Patient was noted to have peritonitis yesterday and patient undergoing exploratory laparotomy. Patient remained intubated after procedure and is in ICU. Now on broad-spectrum antibiotics. ID on board. 12/25. Remains mechanically ventilated and sedated. Temp 103 Fahrenheit. Antibiotics broadened-ID added fluconazole and Flagyl. Blood cultures ordered. Plan to repeat CT abdomen tomorrow if not better. Surgery following. 12/26: Patient remains on mechanical ventilation on CMV tidal line 550, rate of 14, PEEP of 8 and 30% FiO2 and sedated on fentanyl 4 micrograms. Today we will remove his Jeffery and CCM dropped his rate controlled him on CPAP. We will trend CBC given recent drop in H/H. 12/27: Patient remains intubated on CMV tidal volume 550, rate 12, PEEP 8 on 30% FiO2 at the time my examination. Patient's TPN will be changed to PPN. Pat ient's fentanyl drip will be changed to IV push fentanyl and have a permacath placed today and midline. Patient was placed on a spontaneous breathing trial was switched back to CMV prior to procedure. 12/28: Patient on fentanyl but awake and follows commands. At the time of my examination he was on a CPAP trial and is scheduled to receive HD today. s/o permacath and PICC placement with vascular yesterday. His blood culture grew Prevotella and addition to Streptococcus bovis. This evening Dr. Spicer attempted to extubate the patient and his heart rate went to the 180s. Stat EKG obtained and cardiology consulted. 12/29: Patient was started on amiodarone IV for A. fib RVR yesterday and today he is more rate controlled into the 70s and 80s. Patient was extubated yesterday and is currently on Ventimask. Patient will be transferred to [facility]. Patient continues to be n.p.o. with TPN and NG tube to [facility]. He is hypokalemic today which was repleted. 12/30; patient was on IV amiodarone for treatment with RVR, rate is controlled. Patient was off oxygen. patient is n.p.o. and on TPN. Surgery is following the patient. 12/31: Patient was intubated overnight for respiratory distress and this morning on examination he was on assist control tidal volume 450, rate 20, PEEP 6, 100% FiO2 and RT was getting a ABG to adjust vent settings. Patient had a acute bump in WBC and per ID recommendations we will obtain a CT abdomen/pelvis if leukocytosis persist. Patient is on TPN and sedated with Levophed. Patient is also on vasopressor support with Levophed. Per surgery his ileus is resolving however will maintain OGT to LIWS. 01/01: Patient was started on a vasopressin yesterday late evening. This morning patient is on 20 mcg of Levophed and 0.03 vasopressin and sedated on 20 mcg of propofol. Patient WBC increased today and he is hypokalemic. We will treat hyperkalemia. Patient had a CT chest and abdomen/pelvis pending. The time examination total of 450, rate 20, PEEP of 6 and 35 percent FiO2. Per RN, Dr Pollock has stated that the patient will be returning to the OR today for likely anastomosis seen on CT abdomen/pelvis. 01/02: Patient noted, WBC improving, but noted to have anemia, will transfuse additional unit of Blood and repeat H/H. continue supportive care. 01/03: Continue to wean pressors, ABX PER ID, patient to return to OR today for washout and possible closure, CONTINUE TPN 5/12: Continues to show some improvement. Today is POD#12 s/p ex lap with extensive lysis of adhesions and two small bowel resections with primary anastamosis for SBO with necrotic segment small bowel. POD#3 s/p ex lap, resection of perforated anastamosis, washout and abthera wound vac placement. POD#1 s/p ex lap with right hemicolectomy. Surgery planning to take back to the OR on Saturday with the hope to anastamos ileum to transverse colon and close abdomen. keep NGT to suction. Pt in deep sedation due to open abdomen. Per ID - Continue IV Zosyn, renally dosed for Strep bacteremia treatment till 01/06/2021 -On TPN 01/05: Patient continues on HD, anticipate return to OR tomorrow for closure and anastemosis. Continues with deep sedation due to open abdomen 01/06: Continue supportive care, monitor pressures and electrolytes. He is post op Exploratory laparotomy, 2. Jejunal colonic anastomosis,3. Segmental small bowel resection and anastemosis closure today. Continue wound vac 01/07: Continue supportive care, Today is POD#15 s/p ex lap with extensive lysis of adhesions and two small bowel resections with primary anastamosis for SBO with necrotic segment small bowel. POD#6 s/p ex lap, resection of perforated anastamosis, washout and abthera wound vac placement. POD#4 s/p ex lap with right hemicolectomy. POD #1 exploratory laparotomy, 2. Jejunal colonic anastomosis,3. Segmental small bowel resection. Continue to monitor and corre ct electrolytes. Patient remains on fentanyl and TPN with lipids. Still hypoactive bowel sounds. 16: Patient now extubated, asked when he can go home, Still lethargic. Continue wound management, wound vac, Will need Rehab eval prior to discharge. 01/09: Patient remains on TPN, was started on labetalol drip per cardiology, patient had uncontrolled hypertension today however he cannot be given p.o. medications ileus resolves per surgery. Patient received hemodialysis today. NG tube remains to low intermittent suction. 01/10: Patient has some leukocytosis, slight hypokalemia and hyponatremia, metabolic acidosis. NG tube to LIWS, continue TPN. Patient will be downgraded to IMCU today. [facility] is working on placement. Will change frequency of hydralazine and discontinue labetalol drip. We will obtain a.m. BMP/mag/Phos and CBC. Infectious disease will like to start Zosyn if leukocytosis continues to worsen. 01/11: Patient leukocytosis has slightly improved potassium with in normal limits and other electrolytes are elevated but patient is scheduled for HD today. Remains on RA and A,A,Ox4. BP better controlled but remains elevated and we will increase clonidine dose. 01/12/2021; patient's blood pressure is better after dialysis and as needed IV medications and clonidine patch. Patient is followed by general surgery. Patient was alert and oriented and asked when he is going home. 01/13: Surgery is concerned about a leak at his anastamosis given increased output and will treat as controlled fistula and start an octreotide drip. And per surgery if he requires operative intervention will likely need to be left in discontinuity and eventual ileostomy as he has already failed two anastamoses. Patient still has tongue swelling and slurred speech. He is on Benadryl. 01/14: Patient's tongue swelling is improved, patient is alert and oriented, CAM ICU negative. Continue NG tube to low wall intermittent suction. Leukocytosis is improving. Hypomagnesemia resolved. Epogen with HD 01/15: Patient tongue swelling is much improved, bladder scan completed by bedside RN and he needed to be straight cathed. NGT output decreased. Leukocytosis improving. Patient has been having episodes of hypoglycemia during the day and he is on cyclic TPN, Lantus rescheduled to nightly and dosage decreased. 01/16: Continue management per ID and surgery. Will defer repeat CT of the a bdomen to the team surgery has been approved by nephrology. Continue current diet and advance all to ice if okay with surgery discussed with nursing staff. 01/17: Discussed surgical recommendation of strict n.p.o. except for small amount of ice as patient has already failed to anastomosis. And risk for additional surgery with tissues were extremely friable from previous scar. He continues on octreotide drip to slow down GI output HARIS drain remains in place with NG suction for decompression. Patient verbalized understanding although stressed about being discharged. We will continue IMCU care unless otherwise advised by surgery. Prognosis remains guarded continue to monitor electrolytes considering GI output. 01/18: Continue supportive care, BP mildly elevated, continue to monitor, cont inue current therapy, if no return to PO soon may consider Increasing clonidine to 0.3, PO when ok with surgery. 01/19:Continue supportive care, Per ID continue IV Zosyn, plan to stop at 3 weeks from last surgery end date: 01/24/2021. Other management per surgery. Continue TPN. 01/20: Discussed with Surgery, will continue current management. Advised patient of the findings and plan. 01/21: Continue supportive care. Continue management per surgery advance diet when okay with surgery. Plan of care discussed with the patient in detail. 01/22: NG tube to be replaced explained to the patient why this is important. I agree with PT OT discussed with nursing staff very important to let the PT team know that they should manage HARIS drain while patient is ambulating so that he d oes not come out. Continue current management. Change in ocreotide to q8h and d/c drip NOTED 01/23: Continue supportive care, HD today, counselling provided to the patient on compliance with medical management 01/24: Replace NGT, Continue management per Surgery. POD 32. Mild hypokalemia noted, will replace. 01/25: Brief summary patient is a 60-year-old male admitted with abdominal pain and noted to have necrotic bowel concerning for PD associated peritonitis. Catheter was placed to convert to HD. Patient also underwent multiple surgical interventions. Initial cultures showed Streptococcus bovis bacteremia and Prevotella bacteremia a COLIN was without vegetations repeat blood cultures have been negative. Part of the surgery is included ex lap, resection of perforated anastomosis, washout and a better wound VAC placement on 01/01. While progress has remained slow if has indeed shown some improvement. Patient is agitated about being in the hospital but understands the care management been provided his vital to his health and to prevent further surgeries. The NG tube has been pulled out 2 days ago he vehemently refused the tube being placed back but after a day of nausea with associated vomiting he was accepting of the chest tube to put back. He continues on TPN. We will continue to monitor electrolytes and correct as needed. This a.m. and erroneous blood was obtained likely from the same line as TPN repeat was done which showed normalizing factors. Patient completed antibiotics on 01/25/2020 . 01/26 Patient with severe sepsis with septic shock, small bowel obstruction, necrotic bowel s/p multiple surgeries. He complains of abdominal pain. No fever currently. He asked me when is he going home and i explained that he is not yet stable for discharge 01/27 Patient with severe sepsis with septic shock, small bowel obstruction, necrotic bowel s/p multiple surgeries. He complains of abdominal pain. No fever currently. Paroxysmal atrial fib managed by cardiology 01/28 Patient with severe sepsis with septic shock, small bowel obstruction, necrotic bowel s/p multiple surgeries. No fever currently. No abd pain currently. I discussed with Surgeon, Dr. Pollock. Continue current management. He also has paroxysmal afib, managed by Cardiology. 01/29 Patient with severe sepsis with septic shock, small bowel obstruction, necrotic bowel s/p multiple surgeries. No fever currently. No abd pain currently. I discussed with Surgeon, Dr. Pollock, yesterday. Continue current management. He also has paroxysmal afib, managed by Cardiology. He is on Metoprolol, Digoxin, Clonidine 01/30 Patient with severe sepsis with septic shock, small bowel obstruction, ne crotic bowel s/p multiple surgeries. Patient is a 60-year-old male admitted with abdominal pain and noted to have necrotic bowel concerning for PD associated peritonitis. Catheter was placed to convert to HD. Patient also underwent multiple surgical interventions. Initial cultures showed Strept ococcus bovis bacteremia and Prevotella bacteremia a COLIN was without vegetations repeat blood cultures have been negative. Part of the surgery is included ex lap, resection of perforated anastomosis, washout and a better wound VAC placement on 01/01. While progress has remained slow if has indeed shown some improvement. Patient is agitated about being in the hospital but understands the care management been provided his vital to his health and to prevent further surgeries. He continues on TPN. No fever currently. Less abdominal pain. Discussed with Surgeon, Dr. Pollock, few days ago. Continue current management. He also has paroxysmal afib, managed by Cardiology. He is on Metoprolol, Di goxin, Clonidine. ESRD on dialysis managed by Nephrology. 01/31: Continue HARIS drain suction. Ongoing treatment for anastomotic leak/controlled low output fistula. Maintain LIWS to NGT and monitor output. continue q 8h ocreotide. cont TPN. Defer to general surgery for NG tube discontinuation. 02/01: planned for g-tube placement for gastric decompression. Removed NG tube today. S/p HD -tolerated well : Status post G-tube placement today, resume TPN, patient is off from rectal tube. Continue supportive care and follow general surgery recommendation for discharge planning. Hemodialysis per schedule 02/03 -02/05: cont TPN, G-tube suction, Continue supportive care and follow general surgery recommendation for discharge planning. Hemodialysis per schedule. 02/06: Per surgery Anastamotic leak slowing down and is a controlled fistula. Continue HARIS drain suction. Since HARIS drain has continued to stay about 10ml over the last several days, plan to continue lower dose of octreotide. continue g-tube to drainage for decompression. continue clear liquids and closely monitor HARIS drain output. patient need LTAC placement. Continue to replace electrolytes and monitor phosphate level 02/07/2021; Per surgery Anastamotic leak slowing down and is a controlled fistula. Continue HARIS drain suction. Since HARIS drain has continued to stay about 10ml over the last several days, plan to continue lower dose of octreotide. continue g-tube to drainage for decompression. continue clear liquids and closely monitor HARIS drain output. patient need LTAC placement. Continue to replace electrolytes and monitor phosphate level. 02/08/2021; patient need to be transferred to LTAC. Patient expressed he wants to go home. 02/09/2021; pending LTAC placement 02/10/2021; pending LTAC placement 02/11/2021;case management continues to find a place to take him. General surgery is considering to discharge him home with home health, home TPN. 02/12/2021; patient expressed to go home. Put a consult for case management to arrange home health and home TPN. 02/13/2021; patient does not want to go to rehab or LTAC. I have discussed with case management about the option of getting home health and home PPN. Case management is working on it. 02/14: Patient now with fever Tmax 101.7, has been low grade prior, will recheck per my discussion with nursing staff. Will check CBC, Procalcitonin, blood clutu res, chest xray. Patient is a dialysis patient and has PICC line. From my understanding not returning blood. Will need to check integrity of the line. Nurse to call PICC team. Will like to monitor 24 hrs prior to planned discharge. Understand patient is still on TPN. History Interval history: This is a 60-year-old male with ESRD on peritoneal dialysis, Crohn's, hypertension, systolic CHF (EF 35%) who was admitted with sepsis, peritonitis, small bowel obstruction and now has gram-positive cocci bacteremia. Patient seen and examined, NG tube back in place no further nausea vomiting still thirsty. Hospitalist Physical - Physical exam Narrative exam: Patient was not in cardiopulmonary distress The patient appeared well nourished and normally developed. Vital signs as documented. Head exam is unremarkable. No scleral icterus . Neck is without jugular venous distension, thyromegaly, or carotid bruits. Lungs are clear to auscultation. Cardiac exam reveals regular rate and Rhythm. Abdominal exam reveals clean midline surgical laparatomy wound. HARIS tube in place Extremities are nonedematous and both femoral and pedal pulses are normal. EVIDENCE TECHNICIAN: Alert and oriented 3. No focal weakness. - Constitutional Vitals: Temp Pulse Resp BP Pulse Ox 101.7 F H 99 H 16 122/55 96 02/14/21 07:51 02/14/21 07:51 02/14/21 07:51 02/14/21 07:51 02/14/21 07:51 General appearance: Present: no acute distress HEART Score - HEART Score Troponin: Troponin T 0.021 ng/mL (0.00-0.029) 12/22/20 14:38 Results - Labs CBC & Chem 7: 02/14/21 09:24 02/14/21 09:24 Labs: Laboratory Last Values WBC 9.6 K/mm3 (4.5-11.0) 02/07/21 04:35 RBC 2.52 M/mm3 (3.65-5.03) L 02/07/21 04:35 Hgb 8.0 gm/dl (11.8-15.2) L 02/07/21 04:35 Hct 22.5 % (35.5-45.6) L 02/07/21 04:35 MCV 89 fl (84-94) 02/07/21 04:35 MCH 32 pg (28-32) 02/07/21 04:35 MCHC 36 % (32-34) H 02/07/21 04:35 RDW 16.7 % (13.2-15.2) H 02/07/21 04:35 Plt Count 230 K/mm3 (140-440) 02/07/21 04:35 Lymph % (Auto) 12.7 % (13.4-35.0) L 02/07/21 04:35 Norman % (Auto) 10.2 % (0.0-7.3) H 02/07/21 04:35 Eos % (Auto) 5.0 % (0.0-4.3) H 02/07/21 04:35 Baso % (Auto) 0.5 % (0.0-1.8) 02/07/21 04:35 Lymph # (Auto) 1.2 K/mm3 (1.2-5.4) 02/07/21 04:35 Norman # (Auto) 1.0 K/mm3 (0.0-0.8) H 02/07/21 04:35 Eos # (Auto) 0.5 K/mm3 (0.0-0.4) H 02/07/21 04:35 Baso # (Auto) 0.0 K/mm3 (0.0-0.1) 02/07/21 04:35 Add Manual Diff Complete 01/10/21 09:26 Total Counted 100 01/10/21 09:26 Seg Neutrophils % 71.6 % (40.0-70.0) H 02/07/21 04:35 Seg Neuts % (Manual) 95.0 % (40.0-70.0) H 01/10/21 09:26 Band Neutrophils % 1.0 % 01/10/21 09:26 Lymphocytes % (Manual) 3.0 % (13.4-35.0) L 01/10/21 09:26 Reactive Lymphs % (Man) 1.0 % 12/29/20 05:16 Monocytes % (Manual) 1.0 % (0.0-7.3) 01/10/21 09:26 Eosinophils % (Manual) 2.0 % (0.0-4.3) 12/29/20 05:16 Metamyelocytes % 2.0 % 12/29/20 05:16 Nucleated RBC % Not Reportable 01/10/21 09:26 Seg Neutrophils # 6.9 K/mm3 (1.8-7.7) 02/07/21 04:35 Seg Neutrophils # Man 17.3 K/mm3 (1.8-7.7) H 01/10/21 09:26 Band Neutrophils # 0.2 K/mm3 01/10/21 09:26 Lymphocytes # (Manual) 0.5 K/mm3 (1.2-5.4) L 01/10/21 09:26 Abs React Lymphs (Man) 0.0 K/mm3 01/10/21 09:26 Monocytes # (Manual) 0.2 K/mm3 (0.0-0.8) 01/10/21 09:26 Eosinophils # (Manual) 0.0 K/mm3 (0.0-0.4) 01/10/21 09:26 Basophils # (Manual) 0.0 K/mm3 (0.0-0.1) 01/10/21 09:26 Metamyelocytes # 0.0 K/mm3 01/10/21 09:26 Myelocytes # 0.0 K/mm3 01/10/21 09:26 Promyelocytes # 0.0 K/mm3 01/10/21 09:26 Blast Cells # 0.0 K/mm3 01/10/21 09:26 WBC Morphology Not Reportable 01/10/21 09:26 Hypersegmented Neuts Not Reportable 01/10/21 09:26 Hyposegmented Neuts Not Reportable 01/10/21 09:26 Hypogranular Neuts Not Reportable 01/10/21 09:26 Smudge Cells Not Reportable 01/10/21 09:26 Toxic Granulation 1+ 01/10/21 09:26 Toxic Vacuolation Not Reportable 01/10/21 09:26 Dohle Bodies Not Reportable 01/10/21 09:26 Pelger-Huet Anomaly Not Reportable 01/10/21 09:26 Lamar Rods Not Reportable 01/10/21 09:26 Platelet Estimate Consistent w auto 01/10/21 09:26 Clumped Platelets Not Reportable 01/10/21 09:26 Plt Clumps, EDTA Not Reportable 01/10/21 09:26 Large Platelets Not Reportable 01/10/21 09:26 Giant Platelets Not Reportable 01/10/21 09:26 Platelet Satelliting Not Reportable 01/10/21 09:26 Plt Morphology Comment Not Reportable 01/10/21 09:26 RBC Morphology Not Reportable 01/10/21 09:26 Dimorphic RBCs Not Reportable 01/10/21 09:26 Polychromasia Not Reportable 01/10/21 09:26 Hypochromasia Not Reportable 01/10/21 09:26 Poikilocytosis Not Reportable 01/10/21 09:26 Anisocytosis 1+ 01/10/21 09:26 Microcytosis Not Reportable 01/10/21 09:26 Macrocytosis Not Reportable 01/10/21 09:26 Spherocytes Not Reportable 01/10/21 09:26 Pappenheimer Bodies Not Reportable 01/10/21 09:26 Sickle Cells Not Reportable 01/10/21 09:26 Target Cells Not Reportable 01/10/21 09:26 Tear Drop Cells Not Reportable 01/10/21 09:26 Ovalocytes Not Reportable 01/10/21 09:26 Helmet Cells Not Reportable 01/10/21 09:26 [place] Bodies Not Reportable 01/10/21 09:26 [place] Rings Not Reportable 01/10/21 09:26 [place] Cells Not Reportable 01/10/21 09:26 Bite Cells Not Reportable 01/10/21 09:26 Crenated Cell Not Reportable 01/10/21 09:26 Elliptocytes Not Reportable 01/10/21 09:26 Acanthocytes (Spur) Not Reportable 01/10/21 09:26 Rouleaux Not Reportable 01/10/21 09:26 Hemoglobin C Crystals Not Reportable 01/10/21 09:26 Schistocytes Not Reportable 01/10/21 09:26 Malaria parasites Not Reportable 01/10/21 09:26 Lucas Bodies Not Reportable 01/10/21 09:26 Hem Pathologist Commnt No 01/10/21 09:26 PT 16.9 Sec. (12.2-14.9) H 01/01/21 12:45 INR 1.39 (0.87-1.13) H 01/01/21 12:45 APTT 25.1 Sec. (24.2-36.6) 12/22/20 14:38 ABG pH 7.345 pH Units (7.350-7.450) L 01/07/21 17:14 POC ABG pCO2 41.4 mmHg (32.0-48.0) 01/07/21 03:07 ABG pCO2 40.3 mm Hg 01/07/21 17:14 POC ABG pO2 94.5 mmHg (83-108) 01/07/21 03:07 ABG pO2 67.4 mm Hg (80.0-90.0) L 01/07/21 17:14 POC ABG HCO3 22.7 01/07/21 03:07 ABG HCO3 21.5 mmol/L (20.0-26.0) 01/07/21 17:14 ABG O2 Saturation 94.3 % (95.0-99.0) L 01/07/21 17:14 ABG O2 Content 11.6 (0.0-44) 01/07/21 17:14 POC ABG Base Excess -2.7 01/07/21 03:07 ABG Base Excess -3.9 mmol/L (-2.0-3.0) L 01/07/21 17:14 ABG Hemoglobin 8.9 gm/dl (14.0-18.0) L 01/07/21 17:14 ABG Oxyhemoglobin 96.6 (94-98) 01/07/21 03:07 ABG Carboxyhemoglobin 1.5 % (0.0-5.0) 01/07/21 17:14 ABG Methemoglobin 0.6 % (0.0-1.5) 01/07/21 17:14 ABG Sodium 135.6 mmol/L (136.0-145.0) L 01/07/21 03:07 ABG Potassium 4.0 mmol/L (3.40-4.50) 01/07/21 03:07 ABG Chloride 102.0 mmol/L (98-107) 01/07/21 03:07 ABG Glucose 181 mg/dL (65-95) H 01/07/21 03:07 Oxyhemoglobin 92.3 % (95.0-99.0) L 01/07/21 17:14 Carboxyhemoglobin 0.7 (0.5-1.5) 01/07/21 03:07 FiO2 21 % 01/07/21 17:14 FiO2 % 45.0 01/07/21 03:07 Sodium 138 mmol/L (137-145) 02/13/21 06:05 Potassium 4.3 mmol/L (3.6-5.0) 02/13/21 06:05 Chloride 102.3 mmol/L (98-107) 02/13/21 06:05 Carbon Dioxide 20 mmol/L (22-30) L 02/13/21 06:05 Anion Gap 20 mmol/L 02/13/21 06:05 BUN 80 mg/dL (9-20) H 02/13/21 06:05 Creatinine 11.5 mg/dL (0.8-1.3) H 02/13/21 06:05 Estimated GFR 5 ml/min 02/13/21 06:05 BUN/Creatinine Ratio 7 % 02/13/21 06:05 Glucose 111 mg/dL (75-100) H 02/13/21 06:05 POC Glucose 124 mg/dL (70-105) H 02/14/21 06:09 Lactic Acid 1.10 mmol/L (0.7-2.0) 01/14/21 05:39 Calcium 9.2 mg/dL (8.4-10.2) 02/13/21 06:05 Phosphorus 5.00 mg/dL (2.5-4.5) H D 02/13/21 06:05 Magnesium 1.70 mg/dL (1.7-2.3) 02/13/21 06:05 Total Bilirubin 0.50 mg/dL (0.1-1.2) 02/13/21 06:05 AST 14 units/L (5-40) 02/13/21 06:05 ALT 20 units/L (7-56) 02/13/21 06:05 Alkaline Phosphatase 149 units/L (35-129) H 02/13/21 06:05 Ammonia 30.0 umol/L (25-60) 12/22/20 14:38 Troponin T 0.021 ng/mL (0.00-0.029) 12/22/20 14:38 Total Protein 5.9 g/dL (6.3-8.2) L 02/13/21 06:05 Albumin 3.2 g/dL (3.9-5) L 02/13/21 06:05 Albumin/Globulin Ratio 1.2 % 02/13/21 06:05 Triglycerides 72 mg/dL (2-149) 01/30/21 04:15 Lipase 41 units/L (13-60) 12/22/20 14:38 Procalcitonin > 200.00 ng/mL (<0.15) 12/24/20 15:06 TSH 1.470 mlU/mL (0.270-4.200) 12/28/20 19:44 Arterial Blood Glucose 181 mg/dL (65-95) H 01/07/21 03:07 Arterial Blood Ionized Calcium 4.3 mg/dL (4.6-5.3) L 01/07/21 03:07 Urine Color Yellow (Yellow) 12/22/20 18:53 Urine Turbidity Clear (Clear) 12/22/20 18:53 Urine pH 7.0 (5.0-7.0) 12/22/20 18:53 Ur Specific [place] 1.012 (1.003-1.030) 12/22/20 18:53 Urine Protein >500 mg/dL (Negative) 12/22/20 18:53 Urine Glucose (UA) Neg mg/dL (Negative) 12/22/20 18:53 Urine Ketones Neg mg/dL (Negative) 12/22/20 18:53 Urine Blood Neg (Negative) 12/22/20 18:53 Urine Nitrite Neg (Negative) 12/22/20 18:53 Urine Bilirubin Neg (Negative) 12/22/20 18:53 Urine Urobilinogen < 2.0 mg/dL (<2.0) 12/22/20 18:53 Ur Leukocyte Esterase Neg (Negative) 12/22/20 18:53 Urine WBC (Auto) < 1.0 /HPF (0.0-6.0) 12/22/20 18:53 Urine RBC (Auto) 1.0 /HPF (0.0-6.0) 12/22/20 18:53 Fluid Type Dialysate 12/22/20 Unknown Fluid Color Colorless 12/22/20 Unknown Fluid Appearance Cloudy 12/22/20 Unknown Fluid WBC 208 /mm3 12/22/20 Unknown Fluid RBC 45 /mm3 12/22/20 Unknown Fluid Seg Neutrophils 82.0 % 12/22/20 Unknown Fluid Lymphocytes 11.0 % 12/22/20 Unknown Fluid Reactive Lymphs 0 % 12/22/20 Unknown Fluid Monocytes 7.0 % 12/22/20 Unknown Fluid Eosinophils 0 % 12/22/20 Unknown Fluid Basophils 0 % 12/22/20 Unknown Random Vancomycin 13.7 ug/mL (0-40.0) 12/26/20 Unknown Digoxin 0.9 ng/mL (0.9-2.0) 02/04/21 05:40 Hepatitis A IgM Ab Non-reactive (NonReactive) 02/02/21 12:41 Hep Bs Antigen Non-reactive (Negative) 02/02/21 12:41 Hep B Core IgM Ab Non-reactive (NonReactive) 02/02/21 12:41 Hepatitis C Antibody Non-reactive (NonReactive) 02/02/21 12:41 Blood Type A POSITIVE 01/06/21 07:10 Antibody Screen Negative 01/06/21 07:10 Crossmatch See Detail 01/06/21 07:10 Jeffery/IV: Voiding Method Toilet Active Medications - Current Medications Current Medications: Generic Name Dose Route Start Last Admin Trade Name Freq PRN Reason Stop Dose Admin Acetaminophen 650 mg 12/31/20 15:30 01/21/21 05:28 Acetaminophen 650 Mg Rect Supp [place] 650 mg Q6H PRN Administration Non Cardiac Pain or Temp>100.5 Clonidine HCl 0.2 mg 01/11/21 10:00 02/08/21 10:00 Clonidine Tts 0.2 Mg/24 Hr Patch TD Not Given We THOMAS Dextrose 50 ml 01/14/21 17:59 01/18/21 15:10 Dextrose 50% In Water (25gm) 50 Ml Syringe IV 20 ml Q30MIN PRN Administration Hypoglycemia Protocol Digoxin 0.125 mg 02/04/21 10:00 02/12/21 12:42 Digoxin 0.125 Mg Tab PO 0.125 mg Q48HR THOMAS Administration Diphenhydramine HCl 50 mg 01/20/21 10:10 02/01/21 14:15 Diphenhydramine 50 Mg/Ml Vial IV 50 mg Q6H PRN Administration Itching Diphenoxylate HCl/Atropine 1 tab 02/06/21 18:00 02/14/21 06:30 Diphenoxylate/Atropine Tab PO 1 tab Q6H THOMAS Administration Famotidine 10 mg 12/24/20 13:00 02/13/21 21:59 Famotidine 20 Mg/2 Ml Inj IV 10 mg BID THOMAS Administration Fluticasone Propionate 50 mcg 02/07/21 10:00 02/13/21 15:43 Fluticasone Propionate Nasal [place] 16 Gm NS 50 mcg QDAY THOMAS Administration Haloperidol Lactate 5 mg 12/29/20 14:16 01/22/21 23:56 Haloperidol Lactate 5 Mg/1 Ml Inj IV 5 mg Q12H PRN Administration Agitation Heparin Sodium (Porcine) 5,000 unit 12/24/20 10:00 02/13/21 21:58 Heparin 5,000 Unit/1 Ml Vial SUB-Q 5,000 unit Q12HR THOMAS Administration Hydralazine HCl 10 mg 01/10/21 14:00 02/14/21 06:33 Hydralazine 20 Mg/1 Ml Inj IV 10 mg Q4HR THOMAS Administration Hydrocortisone Acetate 1 applic 02/01/21 18:43 Hydrocortisone 1% Cream 28.4gm TP Q8H PRN Skin Irritation Hydromorphone HCl 0.25 mg 01/09/21 10:53 02/13/21 10:39 Hydromorphone 1 Mg/1 Ml Inj IV 0.25 mg Q6H PRN Administration Pain , Severe (7-10) Sodium Chloride 100 mls @ 999 mls/hr 01/27/21 18:37 Nacl 0.9% IV [place] PRN Hypotension Amino Acids/Electrolytes/Dextrose 2,016 mls @ 84 mls/hr 02/13/21 20:00 02/13/21 21:18 Tpn Adult IV 02/14/21 19:59 84 mls/hr DAILY@2000 [facility] Administration Protocol Insulin Glargine 5 units 01/18/21 22:00 02/13/21 22:07 Insulin Glargine 100 Units/Ml SUB-Q 5 units QHS [facility] Administration Insulin Human Lispro 0 unit 01/03/21 12:00 02/14/21 07:47 Insulin Lispro 100 Unit/Ml SUB-Q Not Given Q6HR [facility] Protocol Metoprolol Tartrate 5 mg 12/30/20 12:00 02/14/21 06:27 Metoprolol Tartrate 5 Mg/5 Ml Inj IV 5 mg Q4HR THOMAS Administration Morphine Sulfate 2 mg 02/02/21 12:00 02/03/21 13:31 Morphine 2 Mg/1 Ml Inj IV 2 mg Q3H PRN Administration Pain, Moderate (4-6) Ondansetron HCl 4 mg 01/25/21 11:56 02/14/21 03:21 Ondansetron 4 Mg/2 Ml Inj IV 4 mg Q4H PRN Administration Nausea And Vomiting Scopolamine 1 each 01/15/21 11:00 02/11/21 09:55 Scopolamine Transdermal Patch 72 Hr TD 1 each Q3D THOMAS Administration Sodium Chloride 10 ml 12/22/20 22:00 02/13/21 22:00 Sodium Chloride 0.9% 10 Ml Flush Syringe IV 10 ml BID THOMAS Administration Sodium Chloride 10 ml 12/22/20 19:42 01/29/21 02:08 Sodium Chloride 0.9% 10 Ml Flush Syringe IV 10 ml PRN PRN Administration LINE FLUSH Nutrition/Malnutrition Assess - Dietary Evaluation Nutrition/Malnutrition Findings: Nutrition Notes Start: 12/24/20 12:36 Freq: Status: Active Protocol: Document 02/13/21 09:05 JOSE (Rec: 02/13/21 09:10 JOSE [id number]) Nutrition Notes Initial or Follow up Reassessment Current Diagnosis CKD (stage V CKD),Sepsis, Hypertension,Heart Failure, Small Bowel Obstruction Other Pertinent Diagnosis onHD, s/p exp lap, s/p bowel resections, afib Current Diet CPN at 84 ml/hr+ Clear Liquids Labs/Tests CO2 - 20 Phos 5 BUN 80 Cr 11.5 Pertinent Medications Reviewed Height 5 ft 7 in Weight 84 kg [place] Body Weight (kg) 67.27 BMI 29.0 Weight Status Overweight Subjective/Other Information Day 50 TPN. Percent of energy/protein needs met: 85% energy 100% pro Burn Absent Trauma Absent #2 Nutrition Diagnosis Increased nutrient needs ( specify in comment below) Diagnosis Progress(for reassessment Continues documentation) #1 Nutrition Diagnosis Inadequate oral intake Diagnosis Progress(for reassessment Continues documentation) Is patient on ventilator? No Is Patient Ambulatory and/or Out of Bed Yes REE-([facility]-ambulatory/OOB) [ [id number] [id number]] Calculation Used for Recommendations [facility] Additional Notes Pro needs 1.2-1.3g/k- 109g/day Fluid needs per MD. Nutrition Intervention Nutrition Support: Continue CPN at 84 ml/hr: MVI, Lipids, 60mEq K, 75%/25% chloride/acetate, 0mmol Phos, 5mEq Mg. Osmolality: 1618. Kcal 2,130 Protein (gm) 110 Carbohydrates (gm) 350 Fat (gm) 50 Fluid (mL) 2,266 Fiber (gm) 0 Goal #1 Meet at least 75% of estimated energy and protein needs via CPN Follow-Up By: 02/14/21 Additional Comments Labs in am: BMP, Mg, Phos
[2021-02-14] MEDS: ACETAMINOPHEN 325 MG TAB PO PRN ×2 (09:10→16:34)
--- NOTE | 2021-02-14 09:12 | Progress Note ---
Assessment and Plan Assessment: * ESRD previouaslyon peritoneal dialysis; now on back up HD (on peritoneal dialysis for 2 years with no history of peritonitis) * Small bowel obstruction --s/p ex-lap with jejuno-ileal anastamosis --s/p ex lap with extensive lysis of adhesions and two small bowel resections with primary anastamosis for SBO with necrotic segment small bowel. --s/p ex lap, resection of perforated anastamosis, washout and abthera wound vac placement. --s/p ex lap with right hemicolectomy. * Acute respiratory failure * Septic shock - resolved * Bacteremia - resolved * Hyperkalemia * Anemia of ESRD * Post op ileus * Paroxysmal atrial fibrillation * Hx of nonischemic cardiomyopathy, resolving --LVEF 50-55% by echo this presentation Plan: * Continue HD MWF via left IJ permcath * 3K bath with dialysis * UF as tolerated * Blood cultures collected today - will follow up * Epogen w/ dialysis * Rate control per cardiology * Nutrition per primary team - currently receiving TPN * Maintatin MAP >65 * AM labs Subjective Date of service: 02/14/21 Principal diagnosis: Ac hypoxemic resp failure; Severe Sepsis; Peritonitis; Acute SBO; ESRD; CHF Interval history: Patient febrile this AM - temp 102.3. Patient has no complaints today. Objective - Vital Signs Vital signs: Vital Signs - 12hr 02/13/21 02/14/21 02/14/21 21:59 00:59 01:21 Temperature 99.9 F H 99.9 F H Pulse Rate 90 98 H Respiratory 18 18 Rate Blood Pressure 149/69 142/61 Blood Pressure 142/61 [Right] O2 Sat by Pulse 97 Oximetry 02/14/21 02/14/21 02/14/21 01:44 01:45 03:32 Temperature Pulse Rate 98 H 98 H Respiratory Rate Blood Pressure 146/62 146/62 Blood Pressure [Right] O2 Sat by Pulse 98 Oximetry 02/14/21 02/14/21 02/14/21 04:42 05:00 06:27 Temperature 99.8 F H 99.8 F H Pulse Rate 105 H 104 H 104 H Respiratory 18 18 Rate Blood Pressure 144/77 144/77 Blood Pressure 144/77 [Right] O2 Sat by Pulse 100 100 Oximetry 02/14/21 02/14/21 02/14/21 06:33 07:51 09:09 Temperature 101.7 F H 102.3 F H Pulse Rate 104 H 99 H Respiratory 16 Rate Blood Pressure 144/77 122/55 Blood Pressure [Right] O2 Sat by Pulse 96 Oximetry - General Appearance General appearance: well-developed, well-nourished EENT: ATNC Respiratory: Present: Clear to Ascultation Cardiology: regular, S1S2 Integumentary: no rash, warm and dry Neurologic: no focal deficit, alert and oriented x3 Musculoskeletal: other (no edema) Psychiatric: cooperative - Lab 02/07/21 04:35 02/13/21 06:05 Most recent lab results ABG pH 7.345 pH Units (7.350-7.450) L 01/07/21 17:14 ABG pCO2 40.3 mm Hg 01/07/21 17:14 ABG pO2 67.4 mm Hg (80.0-90.0) L 01/07/21 17:14 ABG HCO3 21.5 mmol/L (20.0-26.0) 01/07/21 17:14 ABG O2 Saturation 94.3 % (95.0-99.0) L 01/07/21 17:14 Calcium 9.2 mg/dL (8.4-10.2) 02/13/21 06:05 Phosphorus 5.00 mg/dL (2.5-4.5) H D 02/13/21 06:05 Magnesium 1.70 mg/dL (1.7-2.3) 02/13/21 06:05 Medications & Allergies - Medications Allergies/Adverse Reactions: Allergies No Known Allergies Allergy (Verified 06/09/20 15:27) Home Medications: Home Medications Medication Instructions Recorded Confirmed Last Taken Type Albuterol Mdi (or & Nicu Only) 2 puff IH QID PRN #1 inhalation 04/01/17 02/05/21 10/31/20 09:00 Rx [ProAir HFA Inhaler] Calcium Acetate 667 mg PO DAILY 04/20/20 02/05/21 10/31/20 09:00 History Centrum Men's Tablet 1 tab PO DAILY 04/20/20 02/05/21 10/31/20 09:00 History Cinacalcet 30 mg PO DAILY 04/20/20 02/05/21 10/31/20 09:00 History Dialyvite with Zinc Tablet 1 tab PO DAILY 04/20/20 02/05/21 10/31/20 09:00 History Magnesium 250 mg PO BID 04/20/20 02/05/21 10/31/20 17:00 History Triamcinolone 0.1% 1 1000units TRANSDERMA DAILY 04/20/20 02/05/21 10/31/20 09:00 History Vit B12/Folic Acid/B6/Aa No.15 1,000 mg PO DAILY 04/20/20 02/05/21 10/31/20 09:00 History amLODIPine 10 mg PO DAILY 06/09/20 02/05/21 10/31/20 09:00 History AtorvaSTATin 40 mg PO HS 11/01/20 02/05/21 10/31/20 21:00 History Benadryl 25 mg PO HS 11/01/20 02/05/21 10/31/20 21:00 History Diclofenac 1 applic TRANSDERMA QID 11/01/20 02/05/21 10/31/20 19:00 History Fluticasone Propionate 1 spray INTRANASAL DAILY 11/01/20 02/05/21 10/31/20 09:00 History Vitamin D3 2,000 units PO QDAY 11/01/20 02/05/21 10/31/20 09:00 History carvediloL 12.5 mg PO DAILY 11/01/20 02/05/21 10/31/20 09:00 History hydrALAZINE 100 mg PO TID 11/01/20 02/05/21 10/31/20 19:00 History Active Medications: Generic Name Dose Route Start Last Admin Trade Name Freq PRN Reason Stop Dose Admin Acetaminophen 650 mg 02/14/21 09:00 Acetaminophen 325 Mg Tab PO Q6H PRN Pain, Mild (1-3) Clonidine HCl 0.2 mg 01/11/21 10:00 02/08/21 10:00 Clonidine Tts 0.2 Mg/24 Hr Patch TD Not Given We THOMAS Dextrose 50 ml 01/14/21 17:59 01/18/21 15:10 Dextrose 50% In Water (25gm) 50 Ml Syringe IV 20 ml Q30MIN PRN Administration Hypoglycemia Protocol Digoxin 0.125 mg 02/04/21 10:00 02/12/21 12:42 Digoxin 0.125 Mg Tab PO 0.125 mg Q48HR THOMAS Administration Diphenhydramine HCl 50 mg 01/20/21 10:10 02/01/21 14:15 Diphenhydramine 50 Mg/Ml Vial IV 50 mg Q6H PRN Administration Itching Diphenoxylate HCl/Atropine 1 tab 02/06/21 18:00 02/14/21 06:30 Diphenoxylate/Atropine Tab PO 1 tab Q6H THOMAS Administration Famotidine 10 mg 12/24/20 13:00 02/13/21 21:59 Famotidine 20 Mg/2 Ml Inj IV 10 mg BID THOMAS Administration Fluticasone Propionate 50 mcg 02/07/21 10:00 02/13/21 15:43 Fluticasone Propionate Nasal [place] 16 Gm NS 50 mcg QDAY THOMAS Administration Haloperidol Lactate 5 mg 12/29/20 14:16 01/22/21 23:56 Haloperidol Lactate 5 Mg/1 Ml Inj IV 5 mg Q12H PRN Administration Agitation Heparin Sodium (Porcine) 5,000 unit 12/24/20 10:00 02/13/21 21:58 Heparin 5,000 Unit/1 Ml Vial SUB-Q 5,000 unit Q12HR THOMAS Administration Hydralazine HCl 10 mg 01/10/21 14:00 02/14/21 06:33 Hydralazine 20 Mg/1 Ml Inj IV 10 mg Q4HR THOMAS Administration Hydrocortisone Acetate 1 applic 02/01/21 18:43 Hydrocortisone 1% Cream 28.4gm TP Q8H PRN Skin Irritation Hydromorphone HCl 0.25 mg 01/09/21 10:53 02/13/21 10:39 Hydromorphone 1 Mg/1 Ml Inj IV 0.25 mg Q6H PRN Administration Pain , Severe (7-10) Sodium Chloride 100 mls @ 999 mls/hr 01/27/21 18:37 Nacl 0.9% IV [place] PRN Hypotension Amino Acids/Electrolytes/Dextrose 2,016 mls @ 84 mls/hr 02/13/21 20:00 02/13/21 21:18 Tpn Adult IV 02/14/21 19:59 84 mls/hr DAILY@2000 [facility] Administration Protocol Insulin Glargine 5 units 01/18/21 22:00 02/13/21 22:07 Insulin Glargine 100 Units/Ml SUB-Q 5 units QHS THOMAS Administration Insulin Human Lispro 0 unit 01/03/21 12:00 02/14/21 07:47 Insulin Lispro 100 Unit/Ml SUB-Q Not Given Q6HR [facility] Protocol Metoprolol Tartrate 5 mg 12/30/20 12:00 02/14/21 06:27 Metoprolol Tartrate 5 Mg/5 Ml Inj IV 5 mg Q4HR THOMAS Administration Morphine Sulfate 2 mg 02/02/21 12:00 02/03/21 13:31 Morphine 2 Mg/1 Ml Inj IV 2 mg Q3H PRN Administration Pain, Moderate (4-6) Ondansetron HCl 4 mg 01/25/21 11:56 02/14/21 03:21 Ondansetron 4 Mg/2 Ml Inj IV 4 mg Q4H PRN Administration Nausea And Vomiting Scopolamine 1 each 01/15/21 11:00 02/11/21 09:55 Scopolamine Transdermal Patch 72 Hr TD 1 each Q3D THOMAS Administration Sodium Chloride 10 ml 12/22/20 22:00 02/13/21 22:00 Sodium Chloride 0.9% 10 Ml Flush Syringe IV 10 ml BID THOMAS Administration Sodium Chloride 10 ml 12/22/20 19:42 01/29/21 02:08 Sodium Chloride 0.9% 10 Ml Flush Syringe IV 10 ml PRN PRN Administration LINE FLUSH
--- NOTE | 2021-02-14 09:13 | XRay Report ---
CHEST 1 VIEW INDICATION: fever. COMPARISON: 01/03/2021 FINDINGS: Support devices: Left IJ permacath and PICC line remain in adequate position. The endotracheal tube a nd nasogastric tube have been removed. Heart: Stable cardiomegaly. Lungs/Pleura: The lungs are clear with no evidence for infiltrate, pleural fluid or pneumothorax. Additional findings: None. IMPRESSION: Stable cardiomegaly. Lungs clear. Signer Name: Rodney Ho Jr, MD Signed: 02/14/2021 9:08 AM Workstation Name: [id number]
[2021-02-14 09:51] LABS: Hematocrit 22.5 % (35.5-45.6); Hemoglobin 7.4 gm/dl (11.8-15.2); Mean Corpuscular HGB Conc 33 % (32-34); Mean Corpuscular Volume 92 fl (84-94); Red Blood Count 2.44 M/mm3 (3.65-5.03); Red Cell Distribution Width 18.1 % (13.2-15.2)
[2021-02-14 10:07] LABS: Calcium 8.4 mg/dL (8.4-10.2)
--- NOTE | 2021-02-14 10:50 | Progress Note ---
Assessment and Plan This is a 60 YO Male with ESRD on PD, GERD, Crohn's Disease, Nicotine Dependence, HTN, Systolic CHF(EF 35%) who presented to the emergency department on 12/22 with complaints of abdominal pain which began shortly after eating fast food rated 10/10 which is periumbilical, constant, associated with fever, nausea and multiple sites of vomiting and self-reported inability to undergo PD. In the emergency room patient underwent a CT scan of the abdomen/pelvis which revealed evidence of partial small bowel obstruction, symptoms were consistent with bacterial peritonitis. Patient was admitted to the hospital service with sepsis, peritonitis, and small bowel obstruction with consults to general surgery, nephrology, infectious disease and [facility]. On 01/06/21 the patient underwent an exploratory laparotomy, jejunal colonic anastomosis, and segmental small bowel resection. ABG's (01/07/21): pH 7.345 pH POC ABG pCO2 41.4 mmHg ABG pCO2 40.3 mm Hg POC ABG pO2 94.5 mmHg ABG pO2 67.4 mm Hg POC ABG HCO3 22.7 ABG O2 Saturation 94.3 % Patient Awake. on room air. O2 saturation 98%. No acute respiratory distress. Patient febrile. has leukocytosis. Blood pressure 115/56. Chest x-ray 01/03/21 reported There is decreased inspiration compared to yesterday's exam. Hazy opacity in the right perihilar region and larger area of infiltration in the left lower lung appears stable given differences in the level of inspiration. No large pleural effusion or pneumothorax. Chest xray done 02/14/21 reported Stable cardiomegaly. Lungs clear. Patient presently on s/c heparin, famotidine, cefepime and Micafungin. Recommend to continue incentive spirometry. - Patient Problems (1) Nicotine dependence Current Visit: Yes Status: Acute Qualifiers: Nicotine product type: cigarettes Substance use status: in withdrawal Qualified Code(s): F17.213 - Nicotine dependence, cigarettes, with withdrawal Plan to address problem: Counseled patient to stop smoking. (2) SOB (shortness of breath) Current Visit: No Status: Acute Plan to address problem: Improved. Patient resting on room air at this time. O2 saturation 99%. (3) Atrial fibrillation Current Visit: Yes Status: Acute Plan to address problem: Management as per cardiology. (4) CHF (congestive heart failure) Current Visit: No Status: Acute Qualifiers: Heart failure chronicity: chronic Plan to address problem: Management as per cardiology. (5) Small bowel obstruction Current Visit: Yes Status: Acute Plan to address problem: On 01/06/21 the patient underwent an exploratory laparotomy, jejunal colonic anastomosis, and segmental small bowel resection. Management as per surgery. Continue incentive spirometry (6) Small intestinal gangrene Current Visit: Yes Status: Acute Plan to address problem: On 01/06/21 the patient underwent an exploratory laparotomy, jejunal colonic anastomosis, and segmental small bowel resection. Management as per surgery. Continue incentive spirometry (7) Accelerated hypertension Current Visit: No Status: Acute Plan to address problem: Management as per primary care. (8) Acute on chronic kidney disease, stage 3 Current Visit: No Status: Acute Plan to address problem: Management as per nephrology. Subjective Date of service: 02/14/21 Principal diagnosis: Ac hypoxemic resp failure; Severe Sepsis; Peritonitis; Acute SBO; ESRD; CHF Interval history: This is a 60 YO Male with ESRD on PD, GERD, Crohn's Disease, Nicotine Dependence, HTN, Systolic CHF(EF 35%) who presented to the emergency department on 12/22 with complaints of abdominal pain which began shortly after eating fast food rated 10/10 which is periumbilical, constant, associated with fever, nausea and multiple sites of vomiting and self-reported inability to undergo PD. In the emergency room patient underwent a CT scan of the abdomen/pelvis which revealed evidence of partial small bowel obstruction, symptoms were consistent with bacterial peritonitis. Patient was admitted to the hospital service with sepsis, peritonitis, and small bowel obstruction with consults to general surgery, nephrology, infectious disease and [facility]. On 01/06/21 the patient underwent an exploratory laparotomy, jejunal colonic anastomosis, and segmental small bowel resection. ABG's (01/07/21): pH 7.345 pH POC ABG pCO2 41.4 mmHg ABG pCO2 40.3 mm Hg POC ABG pO2 94.5 mmHg ABG pO2 67.4 mm Hg POC ABG HCO3 22.7 ABG O2 Saturation 94.3 % Patient Awake. on room air. O2 saturation 98%. No acute respiratory distress. Patient febrile. has leukocytosis. Blood pressure 115/56. Chest x-ray 01/03/21 reported There is decreased inspiration compared to yesterday's exam. Hazy opacity in the right perihilar region and larger area of infiltration in the left lower lung appears stable given differences in the level of inspiration. No large pleural effusion or pneumothorax. Chest xray done 02/14/21 reported Stable cardiomegaly. Lungs clear. Patient presently on s/c heparin, famotidine, cefepime and Micafungin. Recommend to continue incentive spirometry. Objective Vital Signs - 12hr 02/14/21 02/14/21 02/14/21 00:59 01:21 01:44 Temperature 99.9 F H 99.9 F H Pulse Rate 98 H 98 H Respiratory 18 18 Rate Blood Pressure 142/61 146/62 Blood Pressure 142/61 [Right] O2 Sat by Pulse 97 Oximetry 02/14/21 02/14/21 02/14/21 01:45 03:32 04:42 Temperature 99.8 F H Pulse Rate 98 H 105 H Respiratory 18 Rate Blood Pressure 146/62 144/77 Blood Pressure [Right] O2 Sat by Pulse 98 100 Oximetry 02/14/21 02/14/21 02/14/21 05:00 06:27 06:33 Temperature 99.8 F H Pulse Rate 104 H 104 H 104 H Respiratory 18 Rate Blood Pressure 144/77 144/77 Blood Pressure 144/77 [Right] O2 Sat by Pulse 100 Oximetry 02/14/21 02/14/21 07:51 09:09 Temperature 101.7 F H 102.3 F H Pulse Rate 99 H Respiratory 16 Rate Blood Pressure 122/55 Blood Pressure [Right] O2 Sat by Pulse 96 Oximetry Constitutional: no acute distress, alert, other (00) Eyes: non-icteric ENT: oropharynx moist Neck: supple, no lymphadenopathy, no JVD Effort: normal Ascultation: Bilateral: diminished breath sounds, rales, rhonchi Percussion: Bilateral: not dull Cardiovascular: regular rate and rhythm, other (S1,S2) Gastrointestinal: hypoactive bowel sounds, soft, non-tender, non-distended (protuberant), other (Midline abdominal incision; + PEG) Integumentary: other (Midline abdominal incision ) Extremities: no cyanosis, no edema, pulses normal, no ischemia or petechiae Neurologic: non-focal exam (grossly), pupils equal and round, CN II-XII normal Psychiatric: mood appropriate, affect normal CBC and BMP: 02/14/21 09:24 02/14/21 09:24 ABG, PT/INR, D-dimer: ABG ABG pH 7.345 pH Units (7.350-7.450) L 01/07/21 17:14 POC ABG pCO2 41.4 mmHg (32.0-48.0) 01/07/21 03:07 ABG pCO2 40.3 mm Hg 01/07/21 17:14 POC ABG pO2 94.5 mmHg (83-108) 01/07/21 03:07 ABG pO2 67.4 mm Hg (80.0-90.0) L 01/07/21 17:14 POC ABG HCO3 22.7 01/07/21 03:07 ABG O2 Saturation 94.3 % (95.0-99.0) L 01/07/21 17:14 PT/INR, D-dimer PT 16.9 Sec. (12.2-14.9) H 01/01/21 12:45 INR 1.39 (0.87-1.13) H 01/01/21 12:45 Abnormal lab findings: Abnormal Labs 12/22/20 12/22/20 12/22/20 14:38 14:38 14:38 WBC RBC Hgb 11.2 L Hct 35.0 L MCV MCHC RDW 16.7 H Plt Count Lymph % (Auto) [place] % (Auto) Eos % (Auto) Lymph # (Auto) [place] # (Auto) Eos # (Auto) Seg Neutrophils % Seg Neuts % (Manual) 94.0 H Lymphocytes % (Manual) 5.0 L Monocytes % (Manual) Seg Neutrophils # Seg Neutrophils # Man Lymphocytes # (Manual) 0.3 L Monocytes # (Manual) PT INR ABG pH POC ABG pCO2 POC ABG pO2 ABG pO2 ABG HCO3 ABG O2 Saturation ABG Base Excess ABG Hemoglobin ABG Oxyhemoglobin ABG Sodium ABG Potassium ABG Chloride ABG Glucose Oxyhemoglobin Sodium Potassium Chloride Carbon Dioxide BUN 58 H Creatinine 13.2 H Glucose 113 H POC Glucose Lactic Acid 3.60 H* Calcium Phosphorus Magnesium Total Bilirubin 1.30 H AST ALT Alkaline Phosphatase 155 H Total Protein Albumin Triglycerides Arterial Blood Glucose Arterial Blood Ionized Calcium Digoxin Crossmatch 12/22/20 12/22/20 12/23/20 16:26 17:47 05:22 WBC RBC Hgb Hct MCV MCHC RDW Plt Count Lymph % (Auto) [place] % (Auto) Eos % (Auto) Lymph # (Auto) [place] # (Auto) Eos # (Auto) Seg Neutrophils % Seg Neuts % (Manual) Lymphocytes % (Manual) Monocytes % (Manual) Seg Neutrophils # Seg Neutrophils # Man Lymphocytes # (Manual) Monocytes # (Manual) PT INR ABG pH POC ABG pCO2 POC ABG pO2 ABG pO2 ABG HCO3 ABG O2 Saturation ABG Base Excess ABG Hemoglobin ABG Oxyhemoglobin ABG Sodium ABG Potassium ABG Chloride ABG Glucose Oxyhemoglobin Sodium Potassium Chloride Carbon Dioxide BUN Creatinine Glucose POC Glucose Lactic Acid 2.80 H* 3.10 H* 2.30 H* Calcium Phosphorus Magnesium Total Bilirubin AST ALT Alkaline Phosphatase Total Protein Albumin Triglycerides Arterial Blood Glucose Arterial Blood Ionized Calcium Digoxin Crossmatch 12/23/20 12/23/20 12/23/20 05:22 05:22 06:35 WBC 12.1 H RBC Hgb 11.0 L Hct 33.7 L MCV MCHC RDW 16.9 H Plt Count Lymph % (Auto) [place] % (Auto) Eos % (Auto) Lymph # (Auto) [place] # (Auto) Eos # (Auto) Seg Neutrophils % Seg Neuts % (Manual) 93.0 H Lymphocytes % (Manual) 1.0 L Monocytes % (Manual) Seg Neutrophils # Seg Neutrophils # Man 11.3 H Lymphocytes # (Manual) 0.1 L Monocytes # (Manual) PT INR ABG pH POC ABG pCO2 POC ABG pO2 ABG pO2 ABG HCO3 ABG O2 Saturation ABG Base Excess ABG Hemoglobin ABG Oxyhemoglobin ABG Sodium ABG Potassium ABG Chloride ABG Glucose Oxyhemoglobin Sodium Potassium 5.7 H D Chloride Carbon Dioxide BUN 73 H Creatinine 14.2 H Glucose POC Glucose Lactic Acid 2.30 H* Calcium 7.9 L Phosphorus Magnesium Total Bilirubin 1.40 H AST 119 H ALT 130 H Alkaline Phosphatase 183 H Total Protein 6.1 L Albumin 3.6 L Triglycerides Arterial Blood Glucose Arterial Blood Ionized Calcium Digoxin Crossmatch 12/23/20 12/23/20 12/23/20 11:40 13:53 16:47 WBC RBC Hgb 10.0 L Hct 30.4 L MCV MCHC RDW Plt Count Lymph % (Auto) [place] % (Auto) Eos % (Auto) Lymph # (Auto) [place] # (Auto) Eos # (Auto) Seg Neutrophils % Seg Neuts % (Manual) Lymphocytes % (Manual) Monocytes % (Manual) Seg Neutrophils # Seg Neutrophils # Man Lymphocytes # (Manual) Monocytes # (Manual) PT INR ABG pH POC ABG pCO2 POC ABG pO2 137.5 H ABG pO2 ABG HCO3 ABG O2 Saturation ABG Base Excess ABG Hemoglobin 9.7 L ABG Oxyhemoglobin ABG Sodium 134.1 L ABG Potassium 6.6 H ABG Chloride ABG Glucose 103 H Oxyhemoglobin Sodium Potassium Chloride Carbon Dioxide BUN Creatinine Glucose POC Glucose Lactic Acid Calcium Phosphorus Magnesium Total Bilirubin AST ALT Alkaline Phosphatase Total Protein Albumin Triglycerides Arterial Blood Glucose 103 H Arterial Blood Ionized Calcium 3.8 L Digoxin Crossmatch See Detail 12/23/20 12/23/20 12/24/20 20:35 20:40 01:20 WBC RBC Hgb Hct MCV MCHC RDW Plt Count Lymph % (Auto) [place] % (Auto) Eos % (Auto) Lymph # (Auto) [place] # (Auto) Eos # (Auto) Seg Neutrophils % Seg Neuts % (Manual) Lymphocytes % (Manual) Monocytes % (Manual) Seg Neutrophils # Seg Neutrophils # Man Lymphocytes # (Manual) Monocytes # (Manual) PT INR ABG pH 7.252 L POC ABG pCO2 POC ABG pO2 ABG pO2 50.1 L ABG HCO3 ABG O2 Saturation 81.1 L ABG Base Excess -5.9 L ABG Hemoglobin 12.1 L ABG Oxyhemoglobin ABG Sodium ABG Potassium ABG Chloride ABG Glucose Oxyhemoglobin 78.6 L Sodium 134 L Potassium 6.9 H* D 6.3 H* Chloride Carbon Dioxide 18 L 20 L BUN 87 H 91 H Creatinine 15.3 H 15.3 H Glucose 103 H POC Glucose Lactic Acid Calcium 6.9 L 7.5 L Phosphorus Magnesium Total Bilirubin AST ALT Alkaline Phosphatase Total Protein Albumin Triglycerides Arterial Blood Glucose Arterial Blood Ionized Calcium Digoxin Crossmatch 12/24/20 12/24/20 12/24/20 04:00 10:29 10:29 WBC RBC 3.49 L Hgb 10.5 L Hct 31.2 L MCV MCHC RDW 17.5 H Plt Count 124 L Lymph % (Auto) 3.7 L [place] % (Auto) 9.8 H Eos % (Auto) Lymph # (Auto) 0.2 L [place] # (Auto) Eos # (Auto) Seg Neutrophils % 85.9 H Seg Neuts % (Manual) Lymphocytes % (Manual) Monocytes % (Manual) Seg Neutrophils # Seg Neutrophils # Man Lymphocytes # (Manual) Monocytes # (Manual) PT INR ABG pH POC ABG pCO2 28.1 L POC ABG pO2 ABG pO2 ABG HCO3 ABG O2 Saturation ABG Base Excess ABG Hemoglobin ABG Oxyhemoglobin ABG Sodium 133.9 L ABG Potassium 5.3 H ABG Chloride 108.0 H ABG Glucose Oxyhemoglobin Sodium Potassium 5.6 H Chloride Carbon Dioxide 19 L BUN 99 H Creatinine 16.9 H Glucose 52 L POC Glucose Lactic Acid Calcium 7.6 L Phosphorus Magnesium Total Bilirubin 3.50 H AST 67 H ALT 71 H Alkaline Phosphatase Total Protein 3.5 L D Albumin 2.1 L Triglycerides Arterial Blood Glucose Arterial Blood Ionized Calcium 4.0 L Digoxin Crossmatch 12/25/20 12/25/20 12/25/20 03:33 04:00 04:00 WBC 3.8 L RBC 2.90 L Hgb 8.6 L Hct 25.7 L MCV MCHC RDW 16.7 H Plt Count 113 L Lymph % (Auto) [place] % (Auto) Eos % (Auto) Lymph # (Auto) [place] # (Auto) Eos # (Auto) Seg Neutrophils % Seg Neuts % (Manual) Lymphocytes % (Manual) Monocytes % (Manual) Seg Neutrophils # Seg Neutrophils # Man Lymphocytes # (Manual) Monocytes # (Manual) PT INR ABG pH 7.544 H POC ABG pCO2 28.2 L POC ABG pO2 62.8 L ABG pO2 ABG HCO3 ABG O2 Saturation ABG Base Excess ABG Hemoglobin 9.3 L ABG Oxyhemoglobin 93.0 L ABG Sodium 130.3 L ABG Potassium ABG Chloride ABG Glucose 97 H Oxyhemoglobin Sodium Potassium Chloride Carbon Dioxide BUN 62 H Creatinine 11.4 H Glucose POC Glucose Lactic Acid Calcium 7.7 L Phosphorus 5.00 H Magnesium Total Bilirubin AST ALT Alkaline Phosphatase Total Protein Albumin Triglycerides Arterial Blood Glucose 97 H Arterial Blood Ionized Calcium 3.9 L Digoxin Crossmatch 12/26/20 12/26/20 12/27/20 04:46 Unknown 03:40 WBC 4.1 L RBC 2.61 L Hgb 7.8 L Hct 23.4 L MCV MCHC RDW 17.1 H Plt Count 119 L Lymph % (Auto) 5.3 L [place] % (Auto) 10.6 H Eos % (Auto) Lymph # (Auto) 0.2 L [place] # (Auto) Eos # (Auto) Seg Neutrophils % 78.8 H Seg Neuts % (Manual) Lymphocytes % (Manual) Monocytes % (Manual) Seg Neutrophils # Seg Neutrophils # Man Lymphocytes # (Manual) Monocytes # (Manual) PT INR ABG pH 7.333 L 7.332 L POC ABG pCO2 POC ABG pO2 ABG pO2 ABG HCO3 26.9 H ABG O2 Saturation ABG Base Excess -2.4 L ABG Hemoglobin 6.8 L 7.2 L ABG Oxyhemoglobin ABG Sodium ABG Potassium ABG Chloride ABG Glucose Oxyhemoglobin 93.0 L 93.1 L Sodium Potassium Chloride Carbon Dioxide BUN Creatinine Glucose POC Glucose Lactic Acid Calcium Phosphorus Magnesium Total Bilirubin AST ALT Alkaline Phosphatase Total Protein Albumin Triglycerides Arterial Blood Glucose Arterial Blood Ionized Calcium Digoxin Crossmatch 12/27/20 12/27/20 12/27/20 06:40 06:40 11:22 WBC 4.4 L RBC 2.49 L Hgb 7.4 L Hct 22.4 L MCV MCHC RDW 17.1 H Plt Count 111 L Lymph % (Auto) 6.7 L [place] % (Auto) 12.6 H Eos % (Auto) Lymph # (Auto) 0.3 L [place] # (Auto) Eos # (Auto) Seg Neutrophils % 77.6 H Seg Neuts % (Manual) Lymphocytes % (Manual) Monocytes % (Manual) Seg Neutrophils # Seg Neutrophils # Man Lymphocytes # (Manual) Monocytes # (Manual) PT INR ABG pH POC ABG pCO2 POC ABG pO2 ABG pO2 ABG HCO3 ABG O2 Saturation ABG Base Excess ABG Hemoglobin ABG Oxyhemoglobin ABG Sodium ABG Potassium ABG Chloride ABG Glucose Oxyhemoglobin Sodium Potassium Chloride Carbon Dioxide BUN 64 H Creatinine 9.8 H Glucose 147 H POC Glucose 134 H Lactic Acid Calcium 8.3 L Phosphorus 5.00 H Magnesium Total Bilirubin 3.70 H AST 72 H ALT Alkaline Phosphatase 142 H Total Protein 5.1 L D Albumin 2.9 L Triglycerides Arterial Blood Glucose Arterial Blood Ionized Calcium Digoxin Crossmatch 12/27/20 12/27/20 12/28/20 17:29 23:31 03:09 WBC RBC Hgb Hct MCV MCHC RDW Plt Count Lymph % (Auto) [place] % (Auto) Eos % (Auto) Lymph # (Auto) [place] # (Auto) Eos # (Auto) Seg Neutrophils % Seg Neuts % (Manual) Lymphocytes % (Manual) Monocytes % (Manual) Seg Neutrophils # Seg Neutrophils # Man Lymphocytes # (Manual) Monocytes # (Manual) PT INR ABG pH 7.474 H POC ABG pCO2 POC ABG pO2 ABG pO2 ABG HCO3 ABG O2 Saturation ABG Base Excess ABG Hemoglobin 7.8 L ABG Oxyhemoglobin ABG Sodium ABG Potassium ABG Chloride ABG Glucose Oxyhemoglobin Sodium Potassium Chloride Carbon Dioxide BUN Creatinine Glucose POC Glucose 121 H 131 H Lactic Acid Calcium Phosphorus Magnesium Total Bilirubin AST ALT Alkaline Phosphatase Total Protein Albumin Triglycerides Arterial Blood Glucose Arterial Blood Ionized Calcium Digoxin Crossmatch 12/28/20 12/28/20 12/28/20 05:37 05:40 05:40 WBC 4.3 L RBC 2.40 L Hgb 7.2 L Hct 21.5 L MCV MCHC RDW 17.4 H Plt Count 112 L Lymph % (Auto) 6.5 L [place] % (Auto) 16.7 H Eos % (Auto) Lymph # (Auto) 0.3 L [place] # (Auto) Eos # (Auto) Seg Neutrophils % 71.1 H Seg Neuts % (Manual) Lymphocytes % (Manual) Monocytes % (Manual) Seg Neutrophils # Seg Neutrophils # Man Lymphocytes # (Manual) Monocytes # (Manual) PT INR ABG pH POC ABG pCO2 POC ABG pO2 ABG pO2 ABG HCO3 ABG O2 Saturation ABG Base Excess ABG Hemoglobin ABG Oxyhemoglobin ABG Sodium ABG Potassium ABG Chloride ABG Glucose Oxyhemoglobin Sodium Potassium Chloride Carbon Dioxide BUN 85 H Creatinine 11.5 H Glucose 132 H POC Glucose 121 H Lactic Acid Calcium 8.2 L Phosphorus Magnesium 2.40 H Total Bilirubin 3.80 H AST 70 H ALT Alkaline Phosphatase 176 H Total Protein 5.0 L Albumin 2.9 L Triglycerides Arterial Blood Glucose Arterial Blood Ionized Calcium Digoxin Crossmatch 12/28/20 12/28/20 12/28/20 11:34 15:00 17:35 WBC RBC Hgb Hct MCV MCHC RDW Plt Count Lymph % (Auto) [place] % (Auto) Eos % (Auto) Lymph # (Auto) [place] # (Auto) Eos # (Auto) Seg Neutrophils % Seg Neuts % (Manual) Lymphocytes % (Manual) Monocytes % (Manual) Seg Neutrophils # Seg Neutrophils # Man Lymphocytes # (Manual) Monocytes # (Manual) PT INR ABG pH 7.461 H POC ABG pCO2 POC ABG pO2 72.2 L ABG pO2 ABG HCO3 ABG O2 Saturation ABG Base Excess ABG Hemoglobin 8.2 L ABG Oxyhemoglobin 93.6 L ABG Sodium 134.1 L ABG Potassium 3.2 L ABG Chloride ABG Glucose 135 H Oxyhemoglobin Sodium Potassium Chloride Carbon Dioxide BUN Creatinine Glucose POC Glucose 137 H 144 H Lactic Acid Calcium Phosphorus Magnesium Total Bilirubin AST ALT Alkaline Phosphatase Total Protein Albumin Triglycerides Arterial Blood Glucose 135 H Arterial Blood Ionized Calcium 4.4 L Digoxin Crossmatch 12/28/20 12/28/20 12/29/20 19:44 Unknown 00:21 WBC RBC Hgb Hct MCV MCHC RDW Plt Count Lymph % (Auto) [place] % (Auto) Eos % (Auto) Lymph # (Auto) [place] # (Auto) Eos # (Auto) Seg Neutrophils % Seg Neuts % (Manual) Lymphocytes % (Manual) Monocytes % (Manual) Seg Neutrophils # Seg Neutrophils # Man Lymphocytes # (Manual) Monocytes # (Manual) PT INR ABG pH 7.474 H POC ABG pCO2 POC ABG pO2 ABG pO2 ABG HCO3 ABG O2 Saturation ABG Base Excess ABG Hemoglobin 7.8 L ABG Oxyhemoglobin ABG Sodium 133.2 L ABG Potassium ABG Chloride ABG Glucose 139 H Oxyhemoglobin Sodium 135 L Potassium Chloride 96.6 L Carbon Dioxide BUN 47 H Creatinine 7.4 H Glucose 130 H POC Glucose 142 H Lactic Acid Calcium 8.3 L Phosphorus Magnesium Total Bilirubin AST ALT Alkaline Phosphatase Total Protein Albumin Triglycerides Arterial Blood Glucose 139 H Arterial Blood Ionized Calcium 4.3 L Digoxin Crossmatch 12/29/20 12/29/20 12/29/20 05:16 05:16 05:26 WBC RBC 2.53 L Hgb 7.7 L Hct 22.8 L MCV MCHC RDW 17.0 H Plt Count 130 L Lymph % (Auto) [place] % (Auto) Eos % (Auto) Lymph # (Auto) [place] # (Auto) Eos # (Auto) Seg Neutrophils % Seg Neuts % (Manual) 79.0 H Lymphocytes % (Manual) 9.0 L Monocytes % (Manual) Seg Neutrophils # Seg Neutrophils # Man Lymphocytes # (Manual) 0.6 L Monocytes # (Manual) PT INR ABG pH POC ABG pCO2 POC ABG pO2 ABG pO2 ABG HCO3 ABG O2 Saturation ABG Base Excess ABG Hemoglobin ABG Oxyhemoglobin ABG Sodium ABG Potassium ABG Chloride ABG Glucose Oxyhemoglobin Sodium Potassium 3.4 L Chloride 96.6 L Carbon Dioxide BUN 59 H Creatinine 8.3 H Glucose 127 H POC Glucose 141 H Lactic Acid Calcium 8.2 L Phosphorus Magnesium Total Bilirubin 3.00 H AST 88 H ALT Alkaline Phosphatase 188 H Total Protein 5.1 L Albumin 2.8 L Triglycerides Arterial Blood Glucose Arterial Blood Ionized Calcium Digoxin Crossmatch 12/29/20 12/29/20 12/29/20 11:33 17:29 23:22 WBC RBC Hgb Hct MCV MCHC RDW Plt Count Lymph % (Auto) [place] % (Auto) Eos % (Auto) Lymph # (Auto) [place] # (Auto) Eos # (Auto) Seg Neutrophils % Seg Neuts % (Manual) Lymphocytes % (Manual) Monocytes % (Manual) Seg Neutrophils # Seg Neutrophils # Man Lymphocytes # (Manual) Monocytes # (Manual) PT INR ABG pH POC ABG pCO2 POC ABG pO2 ABG pO2 ABG HCO3 ABG O2 Saturation ABG Base Excess ABG Hemoglobin ABG Oxyhemoglobin ABG Sodium ABG Potassium ABG Chloride ABG Glucose Oxyhemoglobin Sodium Potassium Chloride Carbon Dioxide BUN Creatinine Glucose POC Glucose 144 H 130 H 117 H Lactic Acid Calcium Phosphorus Magnesium Total Bilirubin AST ALT Alkaline Phosphatase Total Protein Albumin Triglycerides Arterial Blood Glucose Arterial Blood Ionized Calcium Digoxin Crossmatch 12/30/20 12/30/20 12/30/20 05:23 08:15 09:00 WBC RBC Hgb Hct MCV MCHC RDW Plt Count Lymph % (Auto) [place] % (Auto) Eos % (Auto) Lymph # (Auto) [place] # (Auto) Eos # (Auto) Seg Neutrophils % Seg Neuts % (Manual) Lymphocytes % (Manual) Monocytes % (Manual) Seg Neutrophils # Seg Neutrophils # Man Lymphocytes # (Manual) Monocytes # (Manual) PT INR ABG pH POC ABG pCO2 POC ABG pO2 ABG pO2 ABG HCO3 ABG O2 Saturation ABG Base Excess ABG Hemoglobin ABG Oxyhemoglobin ABG Sodium ABG Potassium ABG Chloride ABG Glucose Oxyhemoglobin Sodium 135 L Potassium Chloride 95.9 L Carbon Dioxide BUN 85 H Creatinine 10.6 H Glucose 128 H POC Glucose 135 H 127 H Lactic Acid Calcium 8.3 L Phosphorus Magnesium Total Bilirubin 2.40 H AST 85 H ALT Alkaline Phosphatase 216 H Total Protein 5.3 L Albumin 2.6 L Triglycerides 155 H Arterial Blood Glucose Arterial Blood Ionized Calcium Digoxin Crossmatch 12/30/20 12/30/20 12/30/20 09:00 11:53 15:49 WBC RBC 2.61 L Hgb 7.8 L Hct 23.7 L MCV MCHC RDW 17.3 H Plt Count Lymph % (Auto) [place] % (Auto) Eos % (Auto) Lymph # (Auto) [place] # (Auto) Eos # (Auto) Seg Neutrophils % Seg Neuts % (Manual) Lymphocytes % (Manual) Monocytes % (Manual) Seg Neutrophils # Seg Neutrophils # Man Lymphocytes # (Manual) Monocytes # (Manual) PT INR ABG pH POC ABG pCO2 POC ABG pO2 ABG pO2 ABG HCO3 ABG O2 Saturation ABG Base Excess ABG Hemoglobin ABG Oxyhemoglobin ABG Sodium ABG Potassium ABG Chloride ABG Glucose Oxyhemoglobin Sodium Potassium Chloride Carbon Dioxide BUN Creatinine Glucose POC Glucose 155 H 146 H Lactic Acid Calcium Phosphorus Magnesium Total Bilirubin AST ALT Alkaline Phosphatase Total Protein Albumin Triglycerides Arterial Blood Glucose Arterial Blood Ionized Calcium Digoxin Crossmatch 12/30/20 12/30/20 12/31/20 17:53 23:45 03:56 WBC RBC Hgb Hct MCV MCHC RDW Plt Count Lymph % (Auto) [place] % (Auto) Eos % (Auto) Lymph # (Auto) [place] # (Auto) Eos # (Auto) Seg Neutrophils % Seg Neuts % (Manual) Lymphocytes % (Manual) Monocytes % (Manual) Seg Neutrophils # Seg Neutrophils # Man Lymphocytes # (Manual) Monocytes # (Manual) PT INR ABG pH POC ABG pCO2 POC ABG pO2 49.4 L ABG pO2 ABG HCO3 ABG O2 Saturation ABG Base Excess ABG Hemoglobin 10.3 L ABG Oxyhemoglobin 84.2 L ABG Sodium 133.1 L ABG Potassium ABG Chloride ABG Glucose 173 H Oxyhemoglobin Sodium Potassium Chloride Carbon Dioxide BUN Creatinine Glucose POC Glucose 139 H 173 H Lactic Acid Calcium Phosphorus Magnesium Total Bilirubin AST ALT Alkaline Phosphatase Total Protein Albumin Triglycerides Arterial Blood Glucose 173 H Arterial Blood Ionized Calcium Digoxin Crossmatch 12/31/20 12/31/20 12/31/20 05:07 06:51 06:51 WBC 20.3 H RBC 3.32 L Hgb 9.8 L Hct 30.3 L D MCV MCHC RDW 17.3 H Plt Count Lymph % (Auto) [place] % (Auto) Eos % (Auto) Lymph # (Auto) [place] # (Auto) Eos # (Auto) Seg Neutrophils % Seg Neuts % (Manual) 87.0 H Lymphocytes % (Manual) 10.0 L Monocytes % (Manual) Seg Neutrophils # Seg Neutrophils # Man 17.7 H Lymphocytes # (Manual) Monocytes # (Manual) PT INR ABG pH POC ABG pCO2 POC ABG pO2 ABG pO2 ABG HCO3 ABG O2 Saturation ABG Base Excess ABG Hemoglobin ABG Oxyhemoglobin ABG Sodium ABG Potassium ABG Chloride ABG Glucose Oxyhemoglobin Sodium Potassium 5.2 H D Chloride Carbon Dioxide BUN 62 H Creatinine 8.4 H Glucose 116 H POC Glucose 120 H Lactic Acid Calcium Phosphorus Magnesium 1.60 L Total Bilirubin AST ALT Alkaline Phosphatase Total Protein Albumin Triglycerides Arterial Blood Glucose Arterial Blood Ionized Calcium Digoxin Crossmatch 12/31/20 12/31/20 12/31/20 09:38 12:19 12:22 WBC RBC Hgb Hct MCV MCHC RDW Plt Count Lymph % (Auto) [place] % (Auto) Eos % (Auto) Lymph # (Auto) [place] # (Auto) Eos # (Auto) Seg Neutrophils % Seg Neuts % (Manual) Lymphocytes % (Manual) Monocytes % (Manual) Seg Neutrophils # Seg Neutrophils # Man Lymphocytes # (Manual) Monocytes # (Manual) PT INR ABG pH POC ABG pCO2 POC ABG pO2 ABG pO2 354.0 H ABG HCO3 ABG O2 Saturation 99.6 H ABG Base Excess ABG Hemoglobin 9.1 L ABG Oxyhemoglobin ABG Sodium ABG Potassium ABG Chloride ABG Glucose Oxyhemoglobin Sodium Potassium 5.2 H Chloride Carbon Dioxide BUN Creatinine Glucose POC Glucose 132 H Lactic Acid Calcium Phosphorus Magnesium Total Bilirubin AST ALT Alkaline Phosphatase Total Protein Albumin Triglycerides Arterial Blood Glucose Arterial Blood Ionized Calcium Digoxin Crossmatch 12/31/20 01/01/21 01/01/21 23:23 03:03 05:04 WBC RBC Hgb Hct MCV MCHC RDW Plt Count Lymph % (Auto) [place] % (Auto) Eos % (Auto) Lymph # (Auto) [place] # (Auto) Eos # (Auto) Seg Neutrophils % Seg Neuts % (Manual) Lymphocytes % (Manual) Monocytes % (Manual) Seg Neutrophils # Seg Neutrophils # Man Lymphocytes # (Manual) Monocytes # (Manual) PT INR ABG pH POC ABG pCO2 POC ABG pO2 79.6 L ABG pO2 ABG HCO3 ABG O2 Saturation ABG Base Excess ABG Hemoglobin 9.2 L ABG Oxyhemoglobin ABG Sodium 131.6 L ABG Potassium 5.8 H ABG Chloride ABG Glucose 177 H Oxyhemoglobin Sodium Potassium Chloride Carbon Dioxide BUN Creatinine Glucose POC Glucose 174 H 167 H Lactic Acid Calcium Phosphorus Magnesium Total Bilirubin AST ALT Alkaline Phosphatase Total Protein Albumin Triglycerides Arterial Blood Glucose 177 H Arterial Blood Ionized Calcium Digoxin Crossmatch 01/01/21 01/01/21 01/01/21 07:31 07:31 11:31 WBC 26.1 H RBC 2.95 L Hgb 8.6 L Hct 27.1 L MCV MCHC RDW 18.2 H Plt Count Lymph % (Auto) [place] % (Auto) Eos % (Auto) Lymph # (Auto) [place] # (Auto) Eos # (Auto) Seg Neutrophils % Seg Neuts % (Manual) 96.0 H Lymphocytes % (Manual) 4.0 L Monocytes % (Manual) Seg Neutrophils # Seg Neutrophils # Man 25.1 H Lymphocytes # (Manual) 1.0 L Monocytes # (Manual) PT INR ABG pH POC ABG pCO2 POC ABG pO2 ABG pO2 ABG HCO3 ABG O2 Saturation ABG Base Excess ABG Hemoglobin ABG Oxyhemoglobin ABG Sodium ABG Potassium ABG Chloride ABG Glucose Oxyhemoglobin Sodium Potassium 6.0 H Chloride Carbon Dioxide 21 L BUN 89 H Creatinine 10.5 H Glucose 179 H POC Glucose Lactic Acid Calcium Phosphorus Magnesium Total Bilirubin AST ALT Alkaline Phosphatase Total Protein Albumin Triglycerides Arterial Blood Glucose Arterial Blood Ionized Calcium Digoxin Crossmatch See Detail 01/01/21 01/01/21 01/01/21 11:51 12:45 16:52 WBC RBC Hgb Hct MCV MCHC RDW Plt Count Lymph % (Auto) [place] % (Auto) Eos % (Auto) Lymph # (Auto) [place] # (Auto) Eos # (Auto) Seg Neutrophils % Seg Neuts % (Manual) Lymphocytes % (Manual) Monocytes % (Manual) Seg Neutrophils # Seg Neutrophils # Man Lymphocytes # (Manual) Monocytes # (Manual) PT 16.9 H INR 1.39 H ABG pH POC ABG pCO2 POC ABG pO2 ABG pO2 ABG HCO3 ABG O2 Saturation ABG Base Excess ABG Hemoglobin ABG Oxyhemoglobin ABG Sodium ABG Potassium ABG Chloride ABG Glucose Oxyhemoglobin Sodium Potassium Chloride Carbon Dioxide BUN Creatinine Glucose POC Glucose 157 H 177 H Lactic Acid Calcium Phosphorus Magnesium Total Bilirubin AST ALT Alkaline Phosphatase Total Protein Albumin Triglycerides Arterial Blood Glucose Arterial Blood Ionized Calcium Digoxin Crossmatch 01/01/21 01/01/21 01/01/21 17:58 17:58 20:12 WBC 26.9 H RBC 3.14 L Hgb 9.3 L Hct 29.6 L MCV MCHC RDW 17.5 H Plt Count Lymph % (Auto) [place] % (Auto) Eos % (Auto) Lymph # (Auto) [place] # (Auto) Eos # (Auto) Seg Neutrophils % Seg Neuts % (Manual) 84.0 H Lymphocytes % (Manual) 4.0 L Monocytes % (Manual) 12.0 H Seg Neutrophils # Seg Neutrophils # Man 22.6 H Lymphocytes # (Manual) 1.1 L Monocytes # (Manual) 3.2 H PT INR ABG pH POC ABG pCO2 POC ABG pO2 ABG pO2 ABG HCO3 ABG O2 Saturation ABG Base Excess ABG Hemoglobin ABG Oxyhemoglobin ABG Sodium ABG Potassium ABG Chloride ABG Glucose Oxyhemoglobin Sodium 136 L Potassium 6.2 H* Chloride Carbon Dioxide 21 L BUN 92 H Creatinine 10.8 H Glucose 171 H POC Glucose 288 H Lactic Acid Calcium Phosphorus Magnesium Total Bilirubin 2.10 H AST 223 H ALT 100 H Alkaline Phosphatase 206 H Total Protein 4.8 L Albumin 1.9 L Triglycerides Arterial Blood Glucose Arterial Blood Ionized Calcium Digoxin Crossmatch 01/02/21 01/02/21 01/02/21 00:12 00:45 03:05 WBC RBC Hgb Hct MCV MCHC RDW Plt Count Lymph % (Auto) [place] % (Auto) Eos % (Auto) Lymph # (Auto) [place] # (Auto) Eos # (Auto) Seg Neutrophils % Seg Neuts % (Manual) Lymphocytes % (Manual) Monocytes % (Manual) Seg Neutrophils # Seg Neutrophils # Man Lymphocytes # (Manual) Monocytes # (Manual) PT INR ABG pH POC ABG pCO2 POC ABG pO2 81.8 L ABG pO2 ABG HCO3 ABG O2 Saturation ABG Base Excess ABG Hemoglobin 8.0 L ABG Oxyhemoglobin ABG Sodium 129.8 L ABG Potassium 5.4 H ABG Chloride ABG Glucose 257 H Oxyhemoglobin Sodium 136 L Potassium 5.8 H Chloride 96.6 L Carbon Dioxide BUN 95 H Creatinine 11.2 H Glucose 238 H POC Glucose 223 H Lactic Acid Calcium Phosphorus Magnesium Total Bilirubin AST ALT Alkaline Phosphatase Total Protein Albumin Triglycerides Arterial Blood Glucose 257 H Arterial Blood Ionized Calcium 4.0 L Digoxin Crossmatch 01/02/21 01/02/21 01/02/21 06:25 08:00 08:00 WBC 17.5 H RBC 2.31 L Hgb 6.7 L Hct 22.1 L D MCV 96 H MCHC 30 L RDW 18.4 H Plt Count Lymph % (Auto) [place] % (Auto) Eos % (Auto) Lymph # (Auto) [place] # (Auto) Eos # (Auto) Seg Neutrophils % Seg Neuts % (Manual) Lymphocytes % (Manual) Monocytes % (Manual) Seg Neutrophils # Seg Neutrophils # Man Lymphocytes # (Manual) Monocytes # (Manual) PT INR ABG pH POC ABG pCO2 POC ABG pO2 ABG pO2 ABG HCO3 ABG O2 Saturation ABG Base Excess ABG Hemoglobin ABG Oxyhemoglobin ABG Sodium ABG Potassium ABG Chloride ABG Glucose Oxyhemoglobin Sodium 134 L Potassium 5.3 H Chloride 92.9 L Carbon Dioxide BUN 101 H Creatinine 10.9 H Glucose 560 H* POC Glucose 239 H Lactic Acid Calcium 7.6 L Phosphorus 6.50 H Magnesium Total Bilirubin AST ALT Alkaline Phosphatase Total Protein Albumin Triglycerides Arterial Blood Glucose Arterial Blood Ionized Calcium Digoxin Crossmatch 01/02/21 01/02/21 01/02/21 11:26 15:00 17:57 WBC RBC Hgb Hct MCV MCHC RDW Plt Count Lymph % (Auto) [place] % (Auto) Eos % (Auto) Lymph # (Auto) [place] # (Auto) Eos # (Auto) Seg Neutrophils % Seg Neuts % (Manual) Lymphocytes % (Manual) Monocytes % (Manual) Seg Neutrophils # Seg Neutrophils # Man Lymphocytes # (Manual) Monocytes # (Manual) PT INR ABG pH POC ABG pCO2 POC ABG pO2 ABG pO2 ABG HCO3 ABG O2 Saturation ABG Base Excess ABG Hemoglobin ABG Oxyhemoglobin ABG Sodium ABG Potassium ABG Chloride ABG Glucose Oxyhemoglobin Sodium Potassium Chloride Carbon Dioxide BUN Creatinine Glucose 241 H POC Glucose 205 H 272 H Lactic Acid Calcium Phosphorus Magnesium Total Bilirubin AST ALT Alkaline Phosphatase Total Protein Albumin Triglycerides Arterial Blood Glucose Arterial Blood Ionized Calcium Digoxin Crossmatch 01/02/21 01/02/21 01/03/21 23:25 23:43 03:45 WBC RBC Hgb Hct MCV MCHC RDW Plt Count Lymph % (Auto) [place] % (Auto) Eos % (Auto) Lymph # (Auto) [place] # (Auto) Eos # (Auto) Seg Neutrophils % Seg Neuts % (Manual) Lymphocytes % (Manual) Monocytes % (Manual) Seg Neutrophils # Seg Neutrophils # Man Lymphocytes # (Manual) Monocytes # (Manual) PT INR ABG pH POC ABG pCO2 48.3 H POC ABG pO2 134.4 H 79.7 L ABG pO2 ABG HCO3 ABG O2 Saturation ABG Base Excess ABG Hemoglobin 7.7 L 8.6 L ABG Oxyhemoglobin ABG Sodium 131.8 L 130.4 L ABG Potassium ABG Chloride 97.0 L ABG Glucose 218 H 238 H Oxyhemoglobin Sodium Potassium Chloride Carbon Dioxide BUN Creatinine Glucose POC Glucose 218 H Lactic Acid Calcium Phosphorus Magnesium Total Bilirubin AST ALT Alkaline Phosphatase Total Protein Albumin Triglycerides Arterial Blood Glucose 218 H 238 H Arterial Blood Ionized Calcium 4.1 L 4.0 L Digoxin Crossmatch 01/03/21 01/03/21 01/03/21 04:37 04:37 05:39 WBC 15.2 H RBC 2.38 L Hgb 7.3 L Hct 21.6 L MCV MCHC RDW 16.6 H Plt Count Lymph % (Auto) [place] % (Auto) Eos % (Auto) Lymph # (Auto) [place] # (Auto) Eos # (Auto) Seg Neutrophils % Seg Neuts % (Manual) Lymphocytes % (Manual) Monocytes % (Manual) Seg Neutrophils # Seg Neutrophils # Man Lymphocytes # (Manual) Monocytes # (Manual) PT INR ABG pH POC ABG pCO2 POC ABG pO2 ABG pO2 ABG HCO3 ABG O2 Saturation ABG Base Excess ABG Hemoglobin ABG Oxyhemoglobin ABG Sodium ABG Potassium ABG Chloride ABG Glucose Oxyhemoglobin Sodium 136 L Potassium Chloride 94.5 L Carbon Dioxide BUN 69 H Creatinine 8.0 H Glucose 219 H POC Glucose 222 H Lactic Acid Calcium 7.8 L Phosphorus 4.80 H D Magnesium Total Bilirubin AST ALT Alkaline Phosphatase Total Protein Albumin Triglycerides Arterial Blood Glucose Arterial Blood Ionized Calcium Digoxin Crossmatch 01/03/21 01/03/21 01/03/21 11:29 18:49 23:37 WBC RBC Hgb Hct MCV MCHC RDW Plt Count Lymph % (Auto) [place] % (Auto) Eos % (Auto) Lymph # (Auto) [place] # (Auto) Eos # (Auto) Seg Neutrophils % Seg Neuts % (Manual) Lymphocytes % (Manual) Monocytes % (Manual) Seg Neutrophils # Seg Neutrophils # Man Lymphocytes # (Manual) Monocytes # (Manual) PT INR ABG pH POC ABG pCO2 POC ABG pO2 ABG pO2 ABG HCO3 ABG O2 Saturation ABG Base Excess ABG Hemoglobin ABG Oxyhemoglobin ABG Sodium ABG Potassium ABG Chloride ABG Glucose Oxyhemoglobin Sodium Potassium Chloride Carbon Dioxide BUN Creatinine Glucose POC Glucose 232 H 129 H 140 H Lactic Acid Calcium Phosphorus Magnesium Total Bilirubin AST ALT Alkaline Phosphatase Total Protein Albumin Triglycerides Arterial Blood Glucose Arterial Blood Ionized Calcium Digoxin Crossmatch 01/04/21 01/04/21 01/04/21 03:22 04:38 04:38 WBC 11.1 H RBC 2.89 L Hgb 8.9 L Hct 26.2 L MCV MCHC RDW 16.1 H Plt Count Lymph % (Auto) [place] % (Auto) Eos % (Auto) Lymph # (Auto) [place] # (Auto) Eos # (Auto) Seg Neutrophils % Seg Neuts % (Manual) Lymphocytes % (Manual) Monocytes % (Manual) Seg Neutrophils # Seg Neutrophils # Man Lymphocytes # (Manual) Monocytes # (Manual) PT INR ABG pH POC ABG pCO2 POC ABG pO2 82.3 L ABG pO2 ABG HCO3 ABG O2 Saturation ABG Base Excess ABG Hemoglobin 8.9 L ABG Oxyhemoglobin ABG Sodium 130.5 L ABG Potassium ABG Chloride ABG Glucose 124 H Oxyhemoglobin Sodium Potassium Chloride 95.5 L Carbon Dioxide BUN 87 H Creatinine 9.7 H Glucose 118 H POC Glucose Lactic Acid Calcium 7.7 L Phosphorus Magnesium Total Bilirubin AST ALT Alkaline Phosphatase Total Protein Albumin Triglycerides Arterial Blood Glucose 124 H Arterial Blood Ionized Calcium 3.5 L Digoxin Crossmatch 01/04/21 01/04/21 01/04/21 05:39 12:04 18:04 WBC RBC Hgb Hct MCV MCHC RDW Plt Count Lymph % (Auto) [place] % (Auto) Eos % (Auto) Lymph # (Auto) [place] # (Auto) Eos # (Auto) Seg Neutrophils % Seg Neuts % (Manual) Lymphocytes % (Manual) Monocytes % (Manual) Seg Neutrophils # Seg Neutrophils # Man Lymphocytes # (Manual) Monocytes # (Manual) PT INR ABG pH POC ABG pCO2 POC ABG pO2 ABG pO2 ABG HCO3 ABG O2 Saturation ABG Base Excess ABG Hemoglobin ABG Oxyhemoglobin ABG Sodium ABG Potassium ABG Chloride ABG Glucose Oxyhemoglobin Sodium Potassium Chloride Carbon Dioxide BUN Creatinine Glucose POC Glucose 134 H 125 H 131 H Lactic Acid Calcium Phosphorus Magnesium Total Bilirubin AST ALT Alkaline Phosphatase Total Protein Albumin Triglycerides Arterial Blood Glucose Arterial Blood Ionized Calcium Digoxin Crossmatch 01/04/21 01/05/21 01/05/21 23:41 03:23 04:49 WBC RBC Hgb Hct MCV MCHC RDW Plt Count Lymph % (Auto) [place] % (Auto) Eos % (Auto) Lymph # (Auto) [place] # (Auto) Eos # (Auto) Seg Neutrophils % Seg Neuts % (Manual) Lymphocytes % (Manual) Monocytes % (Manual) Seg Neutrophils # Seg Neutrophils # Man Lymphocytes # (Manual) Monocytes # (Manual) PT INR ABG pH POC ABG pCO2 POC ABG pO2 62.8 L ABG pO2 ABG HCO3 ABG O2 Saturation ABG Base Excess ABG Hemoglobin 9.5 L ABG Oxyhemoglobin 92.0 L ABG Sodium 130.1 L ABG Potassium ABG Chloride ABG Glucose 148 H Oxyhemoglobin Sodium Potassium Chloride 96.9 L Carbon Dioxide BUN 57 H Creatinine 6.7 H Glucose 135 H POC Glucose 132 H Lactic Acid Calcium 8.0 L Phosphorus Magnesium Total Bilirubin AST ALT Alkaline Phosphatase Total Protein Albumin Triglycerides Arterial Blood Glucose 148 H Arterial Blood Ionized Calcium 4.1 L Digoxin Crossmatch 01/05/21 01/05/21 01/05/21 05:04 11:48 12:39 WBC RBC 3.03 L Hgb 9.3 L Hct 27.6 L MCV MCHC RDW 16.5 H Plt Count Lymph % (Auto) [place] % (Auto) Eos % (Auto) Lymph # (Auto) [place] # (Auto) Eos # (Auto) Seg Neutrophils % Seg Neuts % (Manual) Lymphocytes % (Manual) Monocytes % (Manual) Seg Neutrophils # Seg Neutrophils # Man Lymphocytes # (Manual) Monocytes # (Manual) PT INR ABG pH POC ABG pCO2 POC ABG pO2 ABG pO2 ABG HCO3 ABG O2 Saturation ABG Base Excess ABG Hemoglobin ABG Oxyhemoglobin ABG Sodium ABG Potassium ABG Chloride ABG Glucose Oxyhemoglobin Sodium Potassium Chloride Carbon Dioxide BUN Creatinine Glucose POC Glucose 147 H 162 H Lactic Acid Calcium Phosphorus Magnesium Total Bilirubin AST ALT Alkaline Phosphatase Total Protein Albumin Triglycerides Arterial Blood Glucose Arterial Blood Ionized Calcium Digoxin Crossmatch 01/05/21 01/05/21 01/06/21 17:50 23:32 04:15 WBC RBC Hgb Hct MCV MCHC RDW Plt Count Lymph % (Auto) [place] % (Auto) Eos % (Auto) Lymph # (Auto) [place] # (Auto) Eos # (Auto) Seg Neutrophils % Seg Neuts % (Manual) Lymphocytes % (Manual) Monocytes % (Manual) Seg Neutrophils # Seg Neutrophils # Man Lymphocytes # (Manual) Monocytes # (Manual) PT INR ABG pH POC ABG pCO2 POC ABG pO2 ABG pO2 191.0 H ABG HCO3 ABG O2 Saturation 99.2 H ABG Base Excess ABG Hemoglobin 9.0 L ABG Oxyhemoglobin ABG Sodium ABG Potassium ABG Chloride ABG Glucose Oxyhemoglobin Sodium Potassium Chloride Carbon Dioxide BUN Creatinine Glucose POC Glucose 155 H 115 H Lactic Acid Calcium Phosphorus Magnesium Total Bilirubin AST ALT Alkaline Phosphatase Total Protein Albumin Triglycerides Arterial Blood Glucose Arterial Blood Ionized Calcium Digoxin Crossmatch 01/06/21 01/06/21 01/06/21 04:45 05:56 07:03 WBC RBC 2.95 L Hgb 9.1 L Hct 26.8 L MCV MCHC RDW 16.8 H Plt Count Lymph % (Auto) [place] % (Auto) Eos % (Auto) Lymph # (Auto) [place] # (Auto) Eos # (Auto) Seg Neutrophils % Seg Neuts % (Manual) Lymphocytes % (Manual) Monocytes % (Manual) Seg Neutrophils # Seg Neutrophils # Man Lymphocytes # (Manual) Monocytes # (Manual) PT INR ABG pH POC ABG pCO2 POC ABG pO2 ABG pO2 ABG HCO3 ABG O2 Saturation ABG Base Excess ABG Hemoglobin ABG Oxyhemoglobin ABG Sodium ABG Potassium ABG Chloride ABG Glucose Oxyhemoglobin Sodium 135 L Potassium Chloride 95.9 L Carbon Dioxide BUN 82 H Creatinine 8.7 H Glucose 127 H POC Glucose 136 H Lactic Acid Calcium 8.3 L Phosphorus Magnesium Total Bilirubin AST ALT Alkaline Phosphatase Total Protein Albumin Triglycerides Arterial Blood Glucose Arterial Blood Ionized Calcium Digoxin Crossmatch 01/06/21 01/06/21 01/06/21 07:10 11:04 13:38 WBC RBC Hgb Hct MCV MCHC RDW Plt Count Lymph % (Auto) [place] % (Auto) Eos % (Auto) Lymph # (Auto) [place] # (Auto) Eos # (Auto) Seg Neutrophils % Seg Neuts % (Manual) Lymphocytes % (Manual) Monocytes % (Manual) Seg Neutrophils # Seg Neutrophils # Man Lymphocytes # (Manual) Monocytes # (Manual) PT INR ABG pH POC ABG pCO2 POC ABG pO2 ABG pO2 ABG HCO3 ABG O2 Saturation ABG Base Excess ABG Hemoglobin ABG Oxyhemoglobin ABG Sodium ABG Potassium ABG Chloride ABG Glucose Oxyhemoglobin Sodium Potassium Chloride Carbon Dioxide BUN Creatinine Glucose POC Glucose 178 H 155 H Lactic Acid Calcium Phosphorus Magnesium Total Bilirubin AST ALT Alkaline Phosphatase Total Protein Albumin Triglycerides Arterial Blood Glucose Arterial Blood Ionized Calcium Digoxin Crossmatch See Detail 01/06/21 01/06/21 01/07/21 17:35 22:21 03:07 WBC RBC Hgb Hct MCV MCHC RDW Plt Count Lymph % (Auto) [place] % (Auto) Eos % (Auto) Lymph # (Auto) [place] # (Auto) Eos # (Auto) Seg Neutrophils % Seg Neuts % (Manual) Lymphocytes % (Manual) Monocytes % (Manual) Seg Neutrophils # Seg Neutrophils # Man Lymphocytes # (Manual) Monocytes # (Manual) PT INR ABG pH POC ABG pCO2 POC ABG pO2 ABG pO2 ABG HCO3 ABG O2 Saturation ABG Base Excess ABG Hemoglobin 11.9 L ABG Oxyhemoglobin ABG Sodium 135.6 L ABG Potassium ABG Chloride ABG Glucose 181 H Oxyhemoglobin Sodium Potassium Chloride Carbon Dioxide BUN Creatinine Glucose POC Glucose 138 H 202 H Lactic Acid Calcium Phosphorus Magnesium Total Bilirubin AST ALT Alkaline Phosphatase Total Protein Albumin Triglycerides Arterial Blood Glucose 181 H Arterial Blood Ionized Calcium 4.3 L Digoxin Crossmatch 01/07/21 01/07/21 01/07/21 04:50 05:21 08:37 WBC 12.4 H RBC Hgb 11.1 L Hct 33.3 L D MCV MCHC RDW 17.0 H Plt Count Lymph % (Auto) 3.2 L [place] % (Auto) 9.4 H Eos % (Auto) Lymph # (Auto) 0.4 L [place] # (Auto) 1.2 H Eos # (Auto) Seg Neutrophils % 86.6 H Seg Neuts % (Manual) Lymphocytes % (Manual) Monocytes % (Manual) Seg Neutrophils # 10.7 H Seg Neutrophils # Man Lymphocytes # (Manual) Monocytes # (Manual) PT INR ABG pH POC ABG pCO2 POC ABG pO2 ABG pO2 ABG HCO3 ABG O2 Saturation ABG Base Excess ABG Hemoglobin ABG Oxyhemoglobin ABG Sodium ABG Potassium ABG Chloride ABG Glucose Oxyhemoglobin Sodium Potassium Chloride Carbon Dioxide BUN 60 H Creatinine 6.3 H Glucose 154 H POC Glucose 177 H Lactic Acid Calcium 8.3 L Phosphorus Magnesium Total Bilirubin AST ALT Alkaline Phosphatase Total Protein Albumin Triglycerides Arterial Blood Glucose Arterial Blood Ionized Calcium Digoxin Crossmatch 01/07/21 01/07/21 01/07/21 11:21 12:19 17:11 WBC RBC Hgb Hct MCV MCHC RDW Plt Count Lymph % (Auto) [place] % (Auto) Eos % (Auto) Lymph # (Auto) [place] # (Auto) Eos # (Auto) Seg Neutrophils % Seg Neuts % (Manual) Lymphocytes % (Manual) Monocytes % (Manual) Seg Neutrophils # Seg Neutrophils # Man Lymphocytes # (Manual) Monocytes # (Manual) PT INR ABG pH POC ABG pCO2 POC ABG pO2 ABG pO2 ABG HCO3 ABG O2 Saturation ABG Base Excess ABG Hemoglobin ABG Oxyhemoglobin ABG Sodium ABG Potassium ABG Chloride ABG Glucose Oxyhemoglobin Sodium Potassium Chloride Carbon Dioxide BUN Creatinine Glucose POC Glucose 144 H 137 H 119 H Lactic Acid Calcium Phosphorus Magnesium Total Bilirubin AST ALT Alkaline Phosphatase Total Protein Albumin Triglycerides Arterial Blood Glucose Arterial Blood Ionized Calcium Digoxin Crossmatch 01/07/21 01/07/21 01/08/21 17:14 23:39 04:34 WBC RBC Hgb Hct MCV MCHC RDW Plt Count Lymph % (Auto) [place] % (Auto) Eos % (Auto) Lymph # (Auto) [place] # (Auto) Eos # (Auto) Seg Neutrophils % Seg Neuts % (Manual) Lymphocytes % (Manual) Monocytes % (Manual) Seg Neutrophils # Seg Neutrophils # Man Lymphocytes # (Manual) Monocytes # (Manual) PT INR ABG pH 7.345 L POC ABG pCO2 POC ABG pO2 ABG pO2 67.4 L ABG HCO3 ABG O2 Saturation 94.3 L ABG Base Excess -3.9 L ABG Hemoglobin 8.9 L ABG Oxyhemoglobin ABG Sodium ABG Potassium ABG Chloride ABG Glucose Oxyhemoglobin 92.3 L Sodium Potassium Chloride Carbon Dioxide 20 L BUN 93 H Creatinine 8.8 H Glucose 120 H POC Glucose 129 H Lactic Acid Calcium Phosphorus Magnesium Total Bilirubin AST ALT Alkaline Phosphatase 133 H Total Protein 5.4 L Albumin 1.9 L Triglycerides Arterial Blood Glucose Arterial Blood Ionized Calcium Digoxin Crossmatch 01/08/21 01/08/21 01/08/21 05:26 11:38 17:19 WBC RBC Hgb Hct MCV MCHC RDW Plt Count Lymph % (Auto) [place] % (Auto) Eos % (Auto) Lymph # (Auto) [place] # (Auto) Eos # (Auto) Seg Neutrophils % Seg Neuts % (Manual) Lymphocytes % (Manual) Monocytes % (Manual) Seg Neutrophils # Seg Neutrophils # Man Lymphocytes # (Manual) Monocytes # (Manual) PT INR ABG pH POC ABG pCO2 POC ABG pO2 ABG pO2 ABG HCO3 ABG O2 Saturation ABG Base Excess ABG Hemoglobin ABG Oxyhemoglobin ABG Sodium ABG Potassium ABG Chloride ABG Glucose Oxyhemoglobin Sodium Potassium Chloride Carbon Dioxide BUN Creatinine Glucose POC Glucose 125 H 146 H 136 H Lactic Acid Calcium Phosphorus Magnesium Total Bilirubin AST ALT Alkaline Phosphatase Total Protein Albumin Triglycerides Arterial Blood Glucose Arterial Blood Ionized Calcium Digoxin Crossmatch 01/08/21 01/09/21 01/09/21 23:52 05:13 05:21 WBC RBC Hgb Hct MCV MCHC RDW Plt Count Lymph % (Auto) [place] % (Auto) Eos % (Auto) Lymph # (Auto) [place] # (Auto) Eos # (Auto) Seg Neutrophils % Seg Neuts % (Manual) Lymphocytes % (Manual) Monocytes % (Manual) Seg Neutrophils # Seg Neutrophils # Man Lymphocytes # (Manual) Monocytes # (Manual) PT INR ABG pH POC ABG pCO2 POC ABG pO2 ABG pO2 ABG HCO3 ABG O2 Saturation ABG Base Excess ABG Hemoglobin ABG Oxyhemoglobin ABG Sodium ABG Potassium ABG Chloride ABG Glucose Oxyhemoglobin Sodium Potassium Chloride Carbon Dioxide 16 L BUN 123 H Creatinine 10.8 H Glucose 145 H POC Glucose 143 H 144 H Lactic Acid Calcium Phosphorus 5.00 H D Magnesium 2.40 H Total Bilirubin AST ALT Alkaline Phosphatase Total Protein Albumin Triglycerides Arterial Blood Glucose Arterial Blood Ionized Calcium Digoxin Crossmatch 01/09/21 01/09/2121 12:08 17:20 23:56 WBC RBC Hgb Hct MCV MCHC RDW Plt Count Lymph % (Auto) [place] % (Auto) Eos % (Auto) Lymph # (Auto) [place] # (Auto) Eos # (Auto) Seg Neutrophils % Seg Neuts % (Manual) Lymphocytes % (Manual) Monocytes % (Manual) Seg Neutrophils # Seg Neutrophils # Man Lymphocytes # (Manual) Monocytes # (Manual) PT INR ABG pH POC ABG pCO2 POC ABG pO2 ABG pO2 ABG HCO3 ABG O2 Saturation ABG Base Excess ABG Hemoglobin ABG Oxyhemoglobin ABG Sodium ABG Potassium ABG Chloride ABG Glucose Oxyhemoglobin Sodium Potassium Chloride Carbon Dioxide BUN Creatinine Glucose POC Glucose 153 H 160 H 158 H Lactic Acid Calcium Phosphorus Magnesium Total Bilirubin AST ALT Alkaline Phosphatase Total Protein Albumin Triglycerides Arterial Blood Glucose Arterial Blood Ionized Calcium Digoxin Crossmatch 01/10/21 01/10/21 01/10/21 04:52 05:44 07:41 WBC RBC Hgb Hct MCV MCHC RDW Plt Count Lymph % (Auto) [place] % (Auto) Eos % (Auto) Lymph # (Auto) [place] # (Auto) Eos # (Auto) Seg Neutrophils % Seg Neuts % (Manual) Lymphocytes % (Manual) Monocytes % (Manual) Seg Neutrophils # Seg Neutrophils # Man Lymphocytes # (Manual) Monocytes # (Manual) PT INR ABG pH POC ABG pCO2 POC ABG pO2 ABG pO2 ABG HCO3 ABG O2 Saturation ABG Base Excess ABG Hemoglobin ABG Oxyhemoglobin ABG Sodium ABG Potassium ABG Chloride ABG Glucose Oxyhemoglobin Sodium 135 L Potassium 3.5 L D Chloride 95.0 L Carbon Dioxide 21 L BUN 93 H Creatinine 8.3 H Glucose 127 H POC Glucose 135 H 157 H Lactic Acid Calcium Phosphorus Magnesium Total Bilirubin AST ALT Alkaline Phosphatase Total Protein Albumin Triglycerides Arterial Blood Glucose Arterial Blood Ionized Calcium Digoxin Crossmatch 01/10/21 01/10/21 01/10/21 09:26 12:03 17:44 WBC 18.2 H RBC 3.14 L Hgb 9.7 L Hct 28.2 L MCV MCHC RDW 16.5 H Plt Count Lymph % (Auto) [place] % (Auto) Eos % (Auto) Lymph # (Auto) [place] # (Auto) Eos # (Auto) Seg Neutrophils % Seg Neuts % (Manual) 95.0 H Lymphocytes % (Manual) 3.0 L Monocytes % (Manual) Seg Neutrophils # Seg Neutrophils # Man 17.3 H Lymphocytes # (Manual) 0.5 L Monocytes # (Manual) PT INR ABG pH POC ABG pCO2 POC ABG pO2 ABG pO2 ABG HCO3 ABG O2 Saturation ABG Base Excess ABG Hemoglobin ABG Oxyhemoglobin ABG Sodium ABG Potassium ABG Chloride ABG Glucose Oxyhemoglobin Sodium Potassium Chloride Carbon Dioxide BUN Creatinine Glucose POC Glucose 163 H 171 H Lactic Acid Calcium Phosphorus Magnesium Total Bilirubin AST ALT Alkaline Phosphatase Total Protein Albumin Triglycerides Arterial Blood Glucose Arterial Blood Ionized Calcium Digoxin Crossmatch 01/10/21 01/11/21 01/11/21 23:50 05:18 05:18 WBC RBC Hgb Hct MCV MCHC RDW Plt Count Lymph % (Auto) [place] % (Auto) Eos % (Auto) Lymph # (Auto) [place] # (Auto) Eos # (Auto) Seg Neutrophils % Seg Neuts % (Manual) Lymphocytes % (Manual) Monocytes % (Manual) Seg Neutrophils # Seg Neutrophils # Man Lymphocytes # (Manual) Monocytes # (Manual) PT INR ABG pH POC ABG pCO2 POC ABG pO2 ABG pO2 ABG HCO3 ABG O2 Saturation ABG Base Excess ABG Hemoglobin ABG Oxyhemoglobin ABG Sodium ABG Potassium ABG Chloride ABG Glucose Oxyhemoglobin Sodium 136 L Potassium Chloride 94.6 L Carbon Dioxide 19 L BUN 145 H Creatinine 10.6 H Glucose 152 H POC Glucose 151 H Lactic Acid Calcium Phosphorus 6.00 H D Magnesium Total Bilirubin AST ALT Alkaline Phosphatase Total Protein Albumin Triglycerides Arterial Blood Glucose Arterial Blood Ionized Calcium Digoxin 0.8 L Crossmatch 01/11/21 01/11/21 01/11/21 05:18 05:19 11:28 WBC 17.4 H RBC 3.34 L Hgb 10.2 L Hct 29.7 L MCV MCHC RDW 15.9 H Plt Count Lymph % (Auto) [place] % (Auto) Eos % (Auto) Lymph # (Auto) [place] # (Auto) Eos # (Auto) Seg Neutrophils % Seg Neuts % (Manual) Lymphocytes % (Manual) Monocytes % (Manual) Seg Neutrophils # Seg Neutrophils # Man Lymphocytes # (Manual) Monocytes # (Manual) PT INR ABG pH POC ABG pCO2 POC ABG pO2 ABG pO2 ABG HCO3 ABG O2 Saturation ABG Base Excess ABG Hemoglobin ABG Oxyhemoglobin ABG Sodium ABG Potassium ABG Chloride ABG Glucose Oxyhemoglobin Sodium Potassium Chloride Carbon Dioxide BUN Creatinine Glucose POC Glucose 149 H 178 H Lactic Acid Calcium Phosphorus Magnesium Total Bilirubin AST ALT Alkaline Phosphatase Total Protein Albumin Triglycerides Arterial Blood Glucose Arterial Blood Ionized Calcium Digoxin Crossmatch 01/11/21 01/11/21 01/12/21 17:31 23:14 05:18 WBC RBC Hgb Hct MCV MCHC RDW Plt Count Lymph % (Auto) [place] % (Auto) Eos % (Auto) Lymph # (Auto) [place] # (Auto) Eos # (Auto) Seg Neutrophils % Seg Neuts % (Manual) Lymphocytes % (Manual) Monocytes % (Manual) Seg Neutrophils # Seg Neutrophils # Man Lymphocytes # (Manual) Monocytes # (Manual) PT INR ABG pH POC ABG pCO2 POC ABG pO2 ABG pO2 ABG HCO3 ABG O2 Saturation ABG Base Excess ABG Hemoglobin ABG Oxyhemoglobin ABG Sodium ABG Potassium ABG Chloride ABG Glucose Oxyhemoglobin Sodium Potassium Chloride Carbon Dioxide BUN Creatinine Glucose POC Glucose 158 H 145 H 148 H Lactic Acid Calcium Phosphorus Magnesium Total Bilirubin AST ALT Alkaline Phosphatase Total Protein Albumin Triglycerides Arterial Blood Glucose Arterial Blood Ionized Calcium Digoxin Crossmatch 01/12/21 01/12/21 01/12/21 06:50 10:45 13:34 WBC RBC Hgb Hct MCV MCHC RDW Plt Count Lymph % (Auto) [place] % (Auto) Eos % (Auto) Lymph # (Auto) [place] # (Auto) Eos # (Auto) Seg Neutrophils % Seg Neuts % (Manual) Lymphocytes % (Manual) Monocytes % (Manual) Seg Neutrophils # Seg Neutrophils # Man Lymphocytes # (Manual) Monocytes # (Manual) PT INR ABG pH POC ABG pCO2 POC ABG pO2 ABG pO2 ABG HCO3 ABG O2 Saturation ABG Base Excess ABG Hemoglobin ABG Oxyhemoglobin ABG Sodium ABG Potassium ABG Chloride ABG Glucose Oxyhemoglobin Sodium Potassium 2.9 L* D Chloride 94.8 L Carbon Dioxide BUN 102 H Creatinine 8.3 H Glucose 139 H POC Glucose 151 H 134 H Lactic Acid Calcium 8.1 L Phosphorus 5.00 H Magnesium Total Bilirubin AST ALT Alkaline Phosphatase Total Protein Albumin Triglycerides Arterial Blood Glucose Arterial Blood Ionized Calcium Digoxin Crossmatch 01/12/21 01/12/21 01/13/21 16:59 23:06 03:45 WBC RBC Hgb Hct MCV MCHC RDW Plt Count Lymph % (Auto) [place] % (Auto) Eos % (Auto) Lymph # (Auto) [place] # (Auto) Eos # (Auto) Seg Neutrophils % Seg Neuts % (Manual) Lymphocytes % (Manual) Monocytes % (Manual) Seg Neutrophils # Seg Neutrophils # Man Lymphocytes # (Manual) Monocytes # (Manual) PT INR ABG pH POC ABG pCO2 POC ABG pO2 ABG pO2 ABG HCO3 ABG O2 Saturation ABG Base Excess ABG Hemoglobin ABG Oxyhemoglobin ABG Sodium ABG Potassium ABG Chloride ABG Glucose Oxyhemoglobin Sodium 136 L Potassium 3.4 L Chloride 92.6 L Carbon Dioxide BUN 134 H Creatinine 10.4 H Glucose 126 H POC Glucose 108 H 135 H Lactic Acid Calcium 8.3 L Phosphorus 5.60 H Magnesium 1.50 L Total Bilirubin AST ALT Alkaline Phosphatase Total Protein Albumin Triglycerides Arterial Blood Glucose Arterial Blood Ionized Calcium Digoxin Crossmatch 01/13/21 01/13/21 01/13/21 03:45 05:55 11:59 WBC 17.6 H RBC 3.33 L Hgb 10.2 L Hct 29.5 L MCV MCHC 35 H RDW 15.5 H Plt Count Lymph % (Auto) 4.4 L [place] % (Auto) 10.3 H Eos % (Auto) Lymph # (Auto) 0.8 L [place] # (Auto) 1.8 H Eos # (Auto) Seg Neutrophils % 84.2 H Seg Neuts % (Manual) Lymphocytes % (Manual) Monocytes % (Manual) Seg Neutrophils # 14.8 H Seg Neutrophils # Man Lymphocytes # (Manual) Monocytes # (Manual) PT INR ABG pH POC ABG pCO2 POC ABG pO2 ABG pO2 ABG HCO3 ABG O2 Saturation ABG Base Excess ABG Hemoglobin ABG Oxyhemoglobin ABG Sodium ABG Potassium ABG Chloride ABG Glucose Oxyhemoglobin Sodium Potassium Chloride Carbon Dioxide BUN Creatinine Glucose POC Glucose 134 H 141 H Lactic Acid Calcium Phosphorus Magnesium Total Bilirubin AST ALT Alkaline Phosphatase Total Protein Albumin Triglycerides Arterial Blood Glucose Arterial Blood Ionized Calcium Digoxin Crossmatch 01/13/21 01/14/21 01/14/21 23:09 05:39 05:57 WBC RBC Hgb Hct MCV MCHC RDW Plt Count Lymph % (Auto) [place] % (Auto) Eos % (Auto) Lymph # (Auto) [place] # (Auto) Eos # (Auto) Seg Neutrophils % Seg Neuts % (Manual) Lymphocytes % (Manual) Monocytes % (Manual) Seg Neutrophils # Seg Neutrophils # Man Lymphocytes # (Manual) Monocytes # (Manual) PT INR ABG pH POC ABG pCO2 POC ABG pO2 ABG pO2 ABG HCO3 ABG O2 Saturation ABG Base Excess ABG Hemoglobin ABG Oxyhemoglobin ABG Sodium ABG Potassium ABG Chloride ABG Glucose Oxyhemoglobin Sodium Potassium Chloride 97.6 L Carbon Dioxide BUN 81 H Creatinine 7.6 H Glucose 193 H POC Glucose 106 H 190 H Lactic Acid Calcium 8.2 L Phosphorus 4.60 H Magnesium Total Bilirubin AST ALT Alkaline Phosphatase Total Protein Albumin Triglycerides Arterial Blood Glucose Arterial Blood Ionized Calcium Digoxin Crossmatch 01/14/21 01/14/21 01/14/21 10:00 16:56 16:59 WBC 17.0 H RBC 3.10 L Hgb 9.6 L Hct 27.4 L MCV MCHC 35 H RDW 15.6 H Plt Count Lymph % (Auto) [place] % (Auto) Eos % (Auto) Lymph # (Auto) [place] # (Auto) Eos # (Auto) Seg Neutrophils % Seg Neuts % (Manual) Lymphocytes % (Manual) Monocytes % (Manual) Seg Neutrophils # Seg Neutrophils # Man Lymphocytes # (Manual) Monocytes # (Manual) PT INR ABG pH POC ABG pCO2 POC ABG pO2 ABG pO2 ABG HCO3 ABG O2 Saturation ABG Base Excess ABG Hemoglobin ABG Oxyhemoglobin ABG Sodium ABG Potassium ABG Chloride ABG Glucose Oxyhemoglobin Sodium Potassium Chloride Carbon Dioxide BUN Creatinine Glucose POC Glucose 37 L 34 L Lactic Acid Calcium Phosphorus Magnesium Total Bilirubin AST ALT Alkaline Phosphatase Total Protein Albumin Triglycerides Arterial Blood Glucose Arterial Blood Ionized Calcium Digoxin Crossmatch 01/14/21 01/14/21 01/14/21 17:02 18:34 23:17 WBC RBC Hgb Hct MCV MCHC RDW Plt Count Lymph % (Auto) [place] % (Auto) Eos % (Auto) Lymph # (Auto) [place] # (Auto) Eos # (Auto) Seg Neutrophils % Seg Neuts % (Manual) Lymphocytes % (Manual) Monocytes % (Manual) Seg Neutrophils # Seg Neutrophils # Man Lymphocytes # (Manual) Monocytes # (Manual) PT INR ABG pH POC ABG pCO2 POC ABG pO2 ABG pO2 ABG HCO3 ABG O2 Saturation ABG Base Excess ABG Hemoglobin ABG Oxyhemoglobin ABG Sodium ABG Potassium ABG Chloride ABG Glucose Oxyhemoglobin Sodium Potassium Chloride Carbon Dioxide BUN Creatinine Glucose POC Glucose 35 L 143 H 53 L Lactic Acid Calcium Phosphorus Magnesium Total Bilirubin AST ALT Alkaline Phosphatase Total Protein Albumin Triglycerides Arterial Blood Glucose Arterial Blood Ionized Calcium Digoxin Crossmatch 01/15/21 01/15/21 01/15/21 00:34 04:00 04:00 WBC 15.9 H RBC 3.02 L Hgb 9.3 L Hct 27.3 L MCV MCHC RDW 15.6 H Plt Count Lymph % (Auto) [place] % (Auto) Eos % (Auto) Lymph # (Auto) [place] # (Auto) Eos # (Auto) Seg Neutrophils % Seg Neuts % (Manual) Lymphocytes % (Manual) Monocytes % (Manual) Seg Neutrophils # Seg Neutrophils # Man Lymphocytes # (Manual) Monocytes # (Manual) PT INR ABG pH POC ABG pCO2 POC ABG pO2 ABG pO2 ABG HCO3 ABG O2 Saturation ABG Base Excess ABG Hemoglobin ABG Oxyhemoglobin ABG Sodium ABG Potassium ABG Chloride ABG Glucose Oxyhemoglobin Sodium 136 L Potassium Chloride 94.3 L Carbon Dioxide BUN 117 H Creatinine 9.9 H Glucose 217 H POC Glucose 181 H Lactic Acid Calcium 8.3 L Phosphorus Magnesium Total Bilirubin AST ALT Alkaline Phosphatase Total Protein Albumin Triglycerides Arterial Blood Glucose Arterial Blood Ionized Calcium Digoxin Crossmatch 01/15/21 01/15/21 01/15/21 05:29 11:51 23:13 WBC RBC Hgb Hct MCV MCHC RDW Plt Count Lymph % (Auto) [place] % (Auto) Eos % (Auto) Lymph # (Auto) [place] # (Auto) Eos # (Auto) Seg Neutrophils % Seg Neuts % (Manual) Lymphocytes % (Manual) Monocytes % (Manual) Seg Neutrophils # Seg Neutrophils # Man Lymphocytes # (Manual) Monocytes # (Manual) PT INR ABG pH POC ABG pCO2 POC ABG pO2 ABG pO2 ABG HCO3 ABG O2 Saturation ABG Base Excess ABG Hemoglobin ABG Oxyhemoglobin ABG Sodium ABG Potassium ABG Chloride ABG Glucose Oxyhemoglobin Sodium Potassium Chloride Carbon Dioxide BUN Creatinine Glucose POC Glucose 221 H 62 L 154 H Lactic Acid Calcium Phosphorus Magnesium Total Bilirubin AST ALT Alkaline Phosphatase Total Protein Albumin Triglycerides Arterial Blood Glucose Arterial Blood Ionized Calcium Digoxin Crossmatch 05/24/21 05/24/21 05/24/21 05:04 06:44 06:44 WBC 14.8 H RBC 2.76 L Hgb 8.2 L Hct 24.8 L MCV MCHC RDW 15.6 H Plt Count Lymph % (Auto) [place] % (Auto) Eos % (Auto) Lymph # (Auto) [place] # (Auto) Eos # (Auto) Seg Neutrophils % Seg Neuts % (Manual) Lymphocytes % (Manual) Monocytes % (Manual) Seg Neutrophils # Seg Neutrophils # Man Lymphocytes # (Manual) Monocytes # (Manual) PT INR ABG pH POC ABG pCO2 POC ABG pO2 ABG pO2 ABG HCO3 ABG O2 Saturation ABG Base Excess ABG Hemoglobin ABG Oxyhemoglobin ABG Sodium ABG Potassium ABG Chloride ABG Glucose Oxyhemoglobin Sodium 133 L Potassium Chloride 92.3 L Carbon Dioxide 20 L BUN 160 H Creatinine 12.1 H Glucose 177 H POC Glucose 168 H Lactic Acid Calcium 8.1 L Phosphorus 5.50 H Magnesium 2.50 H Total Bilirubin AST ALT Alkaline Phosphatase Total Protein Albumin Triglycerides Arterial Blood Glucose Arterial Blood Ionized Calcium Digoxin Crossmatch 01/16/21 01/17/21 01/17/21 23:20 05:14 05:14 WBC 12.7 H RBC 2.75 L Hgb 8.5 L Hct 24.6 L MCV MCHC 35 H RDW 15.4 H Plt Count Lymph % (Auto) [place] % (Auto) Eos % (Auto) Lymph # (Auto) [place] # (Auto) Eos # (Auto) Seg Neutrophils % Seg Neuts % (Manual) Lymphocytes % (Manual) Monocytes % (Manual) Seg Neutrophils # Seg Neutrophils # Man Lymphocytes # (Manual) Monocytes # (Manual) PT INR ABG pH POC ABG pCO2 POC ABG pO2 ABG pO2 ABG HCO3 ABG O2 Saturation ABG Base Excess ABG Hemoglobin ABG Oxyhemoglobin ABG Sodium ABG Potassium ABG Chloride ABG Glucose Oxyhemoglobin Sodium Potassium Chloride 97.9 L Carbon Dioxide BUN 84 H Creatinine 7.8 H Glucose 176 H POC Glucose 153 H Lactic Acid Calcium 8.0 L Phosphorus Magnesium Total Bilirubin AST ALT Alkaline Phosphatase Total Protein Albumin Triglycerides Arterial Blood Glucose Arterial Blood Ionized Calcium Digoxin Crossmatch 01/17/21 01/17/21 01/18/21 05:33 11:58 00:07 WBC RBC Hgb Hct MCV MCHC RDW Plt Count Lymph % (Auto) [place] % (Auto) Eos % (Auto) Lymph # (Auto) [place] # (Auto) Eos # (Auto) Seg Neutrophils % Seg Neuts % (Manual) Lymphocytes % (Manual) Monocytes % (Manual) Seg Neutrophils # Seg Neutrophils # Man Lymphocytes # (Manual) Monocytes # (Manual) PT INR ABG pH POC ABG pCO2 POC ABG pO2 ABG pO2 ABG HCO3 ABG O2 Saturation ABG Base Excess ABG Hemoglobin ABG Oxyhemoglobin ABG Sodium ABG Potassium ABG Chloride ABG Glucose Oxyhemoglobin Sodium Potassium Chloride Carbon Dioxide BUN Creatinine Glucose POC Glucose 162 H 64 L 146 H Lactic Acid Calcium Phosphorus Magnesium Total Bilirubin AST ALT Alkaline Phosphatase Total Protein Albumin Triglycerides Arterial Blood Glucose Arterial Blood Ionized Calcium Digoxin Crossmatch 01/18/21 01/18/21 01/18/21 04:19 04:19 06:15 WBC 15.6 H RBC 3.00 L Hgb 9.2 L Hct 26.8 L MCV MCHC 35 H RDW 15.6 H Plt Count Lymph % (Auto) [place] % (Auto) Eos % (Auto) Lymph # (Auto) [place] # (Auto) Eos # (Auto) Seg Neutrophils % Seg Neuts % (Manual) Lymphocytes % (Manual) Monocytes % (Manual) Seg Neutrophils # Seg Neutrophils # Man Lymphocytes # (Manual) Monocytes # (Manual) PT INR ABG pH POC ABG pCO2 POC ABG pO2 ABG pO2 ABG HCO3 ABG O2 Saturation ABG Base Excess ABG Hemoglobin ABG Oxyhemoglobin ABG Sodium ABG Potassium ABG Chloride ABG Glucose Oxyhemoglobin Sodium Potassium Chloride 96.2 L Carbon Dioxide BUN 117 H Creatinine 10.0 H Glucose 165 H POC Glucose 189 H Lactic Acid Calcium Phosphorus 4.70 H D Magnesium Total Bilirubin AST ALT Alkaline Phosphatase Total Protein Albumin Triglycerides Arterial Blood Glucose Arterial Blood Ionized Calcium Digoxin Crossmatch 01/18/21 01/18/21 01/18/21 11:53 13:44 15:08 WBC RBC Hgb Hct MCV MCHC RDW Plt Count Lymph % (Auto) [place] % (Auto) Eos % (Auto) Lymph # (Auto) [place] # (Auto) Eos # (Auto) Seg Neutrophils % Seg Neuts % (Manual) Lymphocytes % (Manual) Monocytes % (Manual) Seg Neutrophils # Seg Neutrophils # Man Lymphocytes # (Manual) Monocytes # (Manual) PT INR ABG pH POC ABG pCO2 POC ABG pO2 ABG pO2 ABG HCO3 ABG O2 Saturation ABG Base Excess ABG Hemoglobin ABG Oxyhemoglobin ABG Sodium ABG Potassium ABG Chloride ABG Glucose Oxyhemoglobin Sodium Potassium Chloride Carbon Dioxide BUN Creatinine Glucose POC Glucose 69 L 50 L 56 L Lactic Acid Calcium Phosphorus Magnesium Total Bilirubin AST ALT Alkaline Phosphatase Total Protein Albumin Triglycerides Arterial Blood Glucose Arterial Blood Ionized Calcium Digoxin Crossmatch 01/18/21 01/19/21 01/19/21 17:50 04:55 08:56 WBC 12.7 H RBC 2.89 L Hgb 8.7 L Hct 25.6 L MCV MCHC RDW 15.5 H Plt Count Lymph % (Auto) [place] % (Auto) Eos % (Auto) Lymph # (Auto) [place] # (Auto) Eos # (Auto) Seg Neutrophils % Seg Neuts % (Manual) Lymphocytes % (Manual) Monocytes % (Manual) Seg Neutrophils # Seg Neutrophils # Man Lymphocytes # (Manual) Monocytes # (Manual) PT INR ABG pH POC ABG pCO2 POC ABG pO2 ABG pO2 ABG HCO3 ABG O2 Saturation ABG Base Excess ABG Hemoglobin ABG Oxyhemoglobin ABG Sodium ABG Potassium ABG Chloride ABG Glucose Oxyhemoglobin Sodium Potassium Chloride Carbon Dioxide BUN Creatinine Glucose POC Glucose 137 H 120 H Lactic Acid Calcium Phosphorus Magnesium Total Bilirubin AST ALT Alkaline Phosphatase Total Protein Albumin Triglycerides Arterial Blood Glucose Arterial Blood Ionized Calcium Digoxin Crossmatch 01/19/21 01/19/21 01/19/21 08:56 11:33 17:32 WBC RBC Hgb Hct MCV MCHC RDW Plt Count Lymph % (Auto) [place] % (Auto) Eos % (Auto) Lymph # (Auto) [place] # (Auto) Eos # (Auto) Seg Neutrophils % Seg Neuts % (Manual) Lymphocytes % (Manual) Monocytes % (Manual) Seg Neutrophils # Seg Neutrophils # Man Lymphocytes # (Manual) Monocytes # (Manual) PT INR ABG pH POC ABG pCO2 POC ABG pO2 ABG pO2 ABG HCO3 ABG O2 Saturation ABG Base Excess ABG Hemoglobin ABG Oxyhemoglobin ABG Sodium ABG Potassium ABG Chloride ABG Glucose Oxyhemoglobin Sodium Potassium Chloride Carbon Dioxide BUN 66 H Creatinine 7.7 H Glucose 119 H POC Glucose 160 H 125 H Lactic Acid Calcium 8.3 L Phosphorus Magnesium Total Bilirubin AST ALT Alkaline Phosphatase Total Protein Albumin Triglycerides Arterial Blood Glucose Arterial Blood Ionized Calcium Digoxin Crossmatch 01/19/21 01/20/21 01/20/21 23:30 03:35 03:35 WBC 12.0 H RBC 2.62 L Hgb 8.3 L Hct 23.2 L MCV MCHC 36 H RDW Plt Count Lymph % (Auto) [place] % (Auto) Eos % (Auto) Lymph # (Auto) [place] # (Auto) Eos # (Auto) Seg Neutrophils % Seg Neuts % (Manual) Lymphocytes % (Manual) Monocytes % (Manual) Seg Neutrophils # Seg Neutrophils # Man Lymphocytes # (Manual) Monocytes # (Manual) PT INR ABG pH POC ABG pCO2 POC ABG pO2 ABG pO2 ABG HCO3 ABG O2 Saturation ABG Base Excess ABG Hemoglobin ABG Oxyhemoglobin ABG Sodium ABG Potassium ABG Chloride ABG Glucose Oxyhemoglobin Sodium Potassium Chloride Carbon Dioxide BUN 46 H Creatinine 5.9 H Glucose 128 H POC Glucose 127 H Lactic Acid Calcium Phosphorus Magnesium Total Bilirubin AST ALT Alkaline Phosphatase Total Protein Albumin Triglycerides Arterial Blood Glucose Arterial Blood Ionized Calcium Digoxin Crossmatch 01/20/21 01/20/21 01/20/21 06:19 11:55 18:00 WBC RBC Hgb Hct MCV MCHC RDW Plt Count Lymph % (Auto) [place] % (Auto) Eos % (Auto) Lymph # (Auto) [place] # (Auto) Eos # (Auto) Seg Neutrophils % Seg Neuts % (Manual) Lymphocytes % (Manual) Monocytes % (Manual) Seg Neutrophils # Seg Neutrophils # Man Lymphocytes # (Manual) Monocytes # (Manual) PT INR ABG pH POC ABG pCO2 POC ABG pO2 ABG pO2 ABG HCO3 ABG O2 Saturation ABG Base Excess ABG Hemoglobin ABG Oxyhemoglobin ABG Sodium ABG Potassium ABG Chloride ABG Glucose Oxyhemoglobin Sodium Potassium Chloride Carbon Dioxide BUN Creatinine Glucose POC Glucose 119 H 128 H 115 H Lactic Acid Calcium Phosphorus Magnesium Total Bilirubin AST ALT Alkaline Phosphatase Total Protein Albumin Triglycerides Arterial Blood Glucose Arterial Blood Ionized Calcium Digoxin Crossmatch 01/20/21 01/21/21 01/21/21 23:26 04:39 05:27 WBC RBC Hgb Hct MCV MCHC RDW Plt Count Lymph % (Auto) [place] % (Auto) Eos % (Auto) Lymph # (Auto) [place] # (Auto) Eos # (Auto) Seg Neutrophils % Seg Neuts % (Manual) Lymphocytes % (Manual) Monocytes % (Manual) Seg Neutrophils # Seg Neutrophils # Man Lymphocytes # (Manual) Monocytes # (Manual) PT INR ABG pH POC ABG pCO2 POC ABG pO2 ABG pO2 ABG HCO3 ABG O2 Saturation ABG Base Excess ABG Hemoglobin ABG Oxyhemoglobin ABG Sodium ABG Potassium ABG Chloride ABG Glucose Oxyhemoglobin Sodium Potassium Chloride Carbon Dioxide BUN 37 H Creatinine 5.3 H Glucose 109 H POC Glucose 108 H 107 H Lactic Acid Calcium Phosphorus 2.10 L Magnesium 1.50 L Total Bilirubin AST ALT Alkaline Phosphatase 143 H Total Protein 6.1 L Albumin 3.0 L Triglycerides Arterial Blood Glucose Arterial Blood Ionized Calcium Digoxin Crossmatch 01/21/21 01/21/21 01/22/21 11:35 17:53 00:20 WBC RBC Hgb Hct MCV MCHC RDW Plt Count Lymph % (Auto) [place] % (Auto) Eos % (Auto) Lymph # (Auto) [place] # (Auto) Eos # (Auto) Seg Neutrophils % Seg Neuts % (Manual) Lymphocytes % (Manual) Monocytes % (Manual) Seg Neutrophils # Seg Neutrophils # Man Lymphocytes # (Manual) Monocytes # (Manual) PT INR ABG pH POC ABG pCO2 POC ABG pO2 ABG pO2 ABG HCO3 ABG O2 Saturation ABG Base Excess ABG Hemoglobin ABG Oxyhemoglobin ABG Sodium ABG Potassium ABG Chloride ABG Glucose Oxyhemoglobin Sodium Potassium Chloride Carbon Dioxide BUN Creatinine Glucose POC Glucose 133 H 124 H 122 H Lactic Acid Calcium Phosphorus Magnesium Total Bilirubin AST ALT Alkaline Phosphatase Total Protein Albumin Triglycerides Arterial Blood Glucose Arterial Blood Ionized Calcium Digoxin Crossmatch 01/22/21 01/22/21 01/22/21 04:00 06:09 11:36 WBC RBC Hgb Hct MCV MCHC RDW Plt Count Lymph % (Auto) [place] % (Auto) Eos % (Auto) Lymph # (Auto) [place] # (Auto) Eos # (Auto) Seg Neutrophils % Seg Neuts % (Manual) Lymphocytes % (Manual) Monocytes % (Manual) Seg Neutrophils # Seg Neutrophils # Man Lymphocytes # (Manual) Monocytes # (Manual) PT INR ABG pH POC ABG pCO2 POC ABG pO2 ABG pO2 ABG HCO3 ABG O2 Saturation ABG Base Excess ABG Hemoglobin ABG Oxyhemoglobin ABG Sodium ABG Potassium ABG Chloride ABG Glucose Oxyhemoglobin Sodium Potassium Chloride Carbon Dioxide BUN 65 H Creatinine 8.2 H D Glucose 111 H POC Glucose 122 H 132 H Lactic Acid Calcium Phosphorus Magnesium Total Bilirubin AST ALT Alkaline Phosphatase Total Protein Albumin Triglycerides Arterial Blood Glucose Arterial Blood Ionized Calcium Digoxin Crossmatch 01/22/21 01/22/21 01/23/21 17:17 23:18 05:29 WBC RBC Hgb Hct MCV MCHC RDW Plt Count Lymph % (Auto) [place] % (Auto) Eos % (Auto) Lymph # (Auto) [place] # (Auto) Eos # (Auto) Seg Neutrophils % Seg Neuts % (Manual) Lymphocytes % (Manual) Monocytes % (Manual) Seg Neutrophils # Seg Neutrophils # Man Lymphocytes # (Manual) Monocytes # (Manual) PT INR ABG pH POC ABG pCO2 POC ABG pO2 ABG pO2 ABG HCO3 ABG O2 Saturation ABG Base Excess ABG Hemoglobin ABG Oxyhemoglobin ABG Sodium ABG Potassium ABG Chloride ABG Glucose Oxyhemoglobin Sodium Potassium Chloride Carbon Dioxide BUN Creatinine Glucose POC Glucose 135 H 128 H 129 H Lactic Acid Calcium Phosphorus Magnesium Total Bilirubin AST ALT Alkaline Phosphatase Total Protein Albumin Triglycerides Arterial Blood Glucose Arterial Blood Ionized Calcium Digoxin Crossmatch 01/23/21 01/23/21 01/23/21 05:45 11:28 16:39 WBC RBC Hgb Hct MCV MCHC RDW Plt Count Lymph % (Auto) [place] % (Auto) Eos % (Auto) Lymph # (Auto) [place] # (Auto) Eos # (Auto) Seg Neutrophils % Seg Neuts % (Manual) Lymphocytes % (Manual) Monocytes % (Manual) Seg Neutrophils # Seg Neutrophils # Man Lymphocytes # (Manual) Monocytes # (Manual) PT INR ABG pH POC ABG pCO2 POC ABG pO2 ABG pO2 ABG HCO3 ABG O2 Saturation ABG Base Excess ABG Hemoglobin ABG Oxyhemoglobin ABG Sodium ABG Potassium ABG Chloride ABG Glucose Oxyhemoglobin Sodium Potassium Chloride Carbon Dioxide BUN 96 H Creatinine 10.8 H Glucose 124 H POC Glucose 160 H 116 H Lactic Acid Calcium Phosphorus Magnesium 2.50 H Total Bilirubin AST ALT Alkaline Phosphatase Total Protein Albumin Triglycerides Arterial Blood Glucose Arterial Blood Ionized Calcium Digoxin Crossmatch 01/24/21 01/24/21 01/24/21 00:02 04:45 05:01 WBC RBC Hgb Hct MCV MCHC RDW Plt Count Lymph % (Auto) [place] % (Auto) Eos % (Auto) Lymph # (Auto) [place] # (Auto) Eos # (Auto) Seg Neutrophils % Seg Neuts % (Manual) Lymphocytes % (Manual) Monocytes % (Manual) Seg Neutrophils # Seg Neutrophils # Man Lymphocytes # (Manual) Monocytes # (Manual) PT INR ABG pH POC ABG pCO2 POC ABG pO2 ABG pO2 ABG HCO3 ABG O2 Saturation ABG Base Excess ABG Hemoglobin ABG Oxyhemoglobin ABG Sodium ABG Potassium ABG Chloride ABG Glucose Oxyhemoglobin Sodium Potassium 3.5 L Chloride Carbon Dioxide BUN 56 H Creatinine 7.7 H Glucose 102 H POC Glucose 120 H 108 H Lactic Acid Calcium Phosphorus Magnesium Total Bilirubin AST ALT Alkaline Phosphatase Total Protein Albumin Triglycerides Arterial Blood Glucose Arterial Blood Ionized Calcium Digoxin Crossmatch 01/24/21 01/24/21 01/24/21 12:03 17:07 23:55 WBC RBC Hgb Hct MCV MCHC RDW Plt Count Lymph % (Auto) [place] % (Auto) Eos % (Auto) Lymph # (Auto) [place] # (Auto) Eos # (Auto) Seg Neutrophils % Seg Neuts % (Manual) Lymphocytes % (Manual) Monocytes % (Manual) Seg Neutrophils # Seg Neutrophils # Man Lymphocytes # (Manual) Monocytes # (Manual) PT INR ABG pH POC ABG pCO2 POC ABG pO2 ABG pO2 ABG HCO3 ABG O2 Saturation ABG Base Excess ABG Hemoglobin ABG Oxyhemoglobin ABG Sodium ABG Potassium ABG Chloride ABG Glucose Oxyhemoglobin Sodium Potassium Chloride Carbon Dioxide BUN Creatinine Glucose POC Glucose 136 H 122 H 112 H Lactic Acid Calcium Phosphorus Magnesium Total Bilirubin AST ALT Alkaline Phosphatase Total Protein Albumin Triglycerides Arterial Blood Glucose Arterial Blood Ionized Calcium Digoxin Crossmatch 01/25/21 01/25/21 01/25/21 05:15 06:00 07:47 WBC RBC Hgb Hct MCV MCHC RDW Plt Count Lymph % (Auto) [place] % (Auto) Eos % (Auto) Lymph # (Auto) [place] # (Auto) Eos # (Auto) Seg Neutrophils % Seg Neuts % (Manual) Lymphocytes % (Manual) Monocytes % (Manual) Seg Neutrophils # Seg Neutrophils # Man Lymphocytes # (Manual) Monocytes # (Manual) PT INR ABG pH POC ABG pCO2 POC ABG pO2 ABG pO2 ABG HCO3 ABG O2 Saturation ABG Base Excess ABG Hemoglobin ABG Oxyhemoglobin ABG Sodium ABG Potassium ABG Chloride ABG Glucose Oxyhemoglobin Sodium 116 L* D Potassium Chloride 79.1 L Carbon Dioxide 17 L D BUN 72 H Creatinine 7.4 H Glucose 2242 H* POC Glucose 117 H 138 H Lactic Acid Calcium 6.7 L D Phosphorus Magnesium Total Bilirubin AST ALT Alkaline Phosphatase Total Protein Albumin Triglycerides Arterial Blood Glucose Arterial Blood Ionized Calcium Digoxin Crossmatch 01/25/21 01/25/21 01/25/21 08:35 11:49 18:42 WBC RBC Hgb Hct MCV MCHC RDW Plt Count Lymph % (Auto) [place] % (Auto) Eos % (Auto) Lymph # (Auto) [place] # (Auto) Eos # (Auto) Seg Neutrophils % Seg Neuts % (Manual) Lymphocytes % (Manual) Monocytes % (Manual) Seg Neutrophils # Seg Neutrophils # Man Lymphocytes # (Manual) Monocytes # (Manual) PT INR ABG pH POC ABG pCO2 POC ABG pO2 ABG pO2 ABG HCO3 ABG O2 Saturation ABG Base Excess ABG Hemoglobin ABG Oxyhemoglobin ABG Sodium ABG Potassium ABG Chloride ABG Glucose Oxyhemoglobin Sodium Potassium Chloride 97.0 L Carbon Dioxide BUN 92 H Creatinine 11.0 H Glucose 125 H POC Glucose 130 H 122 H Lactic Acid Calcium Phosphorus Magnesium Total Bilirubin AST ALT Alkaline Phosphatase Total Protein Albumin Triglycerides Arterial Blood Glucose Arterial Blood Ionized Calcium Digoxin Crossmatch 01/25/21 01/26/21 01/26/21 23:37 04:19 05:48 WBC RBC Hgb Hct MCV MCHC RDW Plt Count Lymph % (Auto) [place] % (Auto) Eos % (Auto) Lymph # (Auto) [place] # (Auto) Eos # (Auto) Seg Neutrophils % Seg Neuts % (Manual) Lymphocytes % (Manual) Monocytes % (Manual) Seg Neutrophils # Seg Neutrophils # Man Lymphocytes # (Manual) Monocytes # (Manual) PT INR ABG pH POC ABG pCO2 POC ABG pO2 ABG pO2 ABG HCO3 ABG O2 Saturation ABG Base Excess ABG Hemoglobin ABG Oxyhemoglobin ABG Sodium ABG Potassium ABG Chloride ABG Glucose Oxyhemoglobin Sodium Potassium Chloride Carbon Dioxide BUN 49 H Creatinine 7.1 H Glucose POC Glucose 144 H 125 H Lactic Acid Calcium Phosphorus Magnesium 1.50 L Total Bilirubin AST ALT Alkaline Phosphatase Total Protein Albumin Triglycerides Arterial Blood Glucose Arterial Blood Ionized Calcium Digoxin Crossmatch 01/26/21 01/26/21 01/27/21 11:16 18:35 00:01 WBC RBC Hgb Hct MCV MCHC RDW Plt Count Lymph % (Auto) [place] % (Auto) Eos % (Auto) Lymph # (Auto) [place] # (Auto) Eos # (Auto) Seg Neutrophils % Seg Neuts % (Manual) Lymphocytes % (Manual) Monocytes % (Manual) Seg Neutrophils # Seg Neutrophils # Man Lymphocytes # (Manual) Monocytes # (Manual) PT INR ABG pH POC ABG pCO2 POC ABG pO2 ABG pO2 ABG HCO3 ABG O2 Saturation ABG Base Excess ABG Hemoglobin ABG Oxyhemoglobin ABG Sodium ABG Potassium ABG Chloride ABG Glucose Oxyhemoglobin Sodium Potassium Chloride Carbon Dioxide BUN Creatinine Glucose POC Glucose 122 H 127 H 130 H Lactic Acid Calcium Phosphorus Magnesium Total Bilirubin AST ALT Alkaline Phosphatase Total Protein Albumin Triglycerides Arterial Blood Glucose Arterial Blood Ionized Calcium Digoxin Crossmatch 01/27/21 01/27/21 01/27/21 04:19 04:19 05:25 WBC 12.4 H RBC 2.79 L Hgb 8.6 L Hct 25.1 L MCV MCHC RDW 16.1 H Plt Count Lymph % (Auto) 7.5 L [place] % (Auto) 9.3 H Eos % (Auto) 4.8 H Lymph # (Auto) 0.9 L [place] # (Auto) 1.1 H Eos # (Auto) 0.6 H Seg Neutrophils % 78.0 H Seg Neuts % (Manual) Lymphocytes % (Manual) Monocytes % (Manual) Seg Neutrophils # 9.7 H Seg Neutrophils # Man Lymphocytes # (Manual) Monocytes # (Manual) PT INR ABG pH POC ABG pCO2 POC ABG pO2 ABG pO2 ABG HCO3 ABG O2 Saturation ABG Base Excess ABG Hemoglobin ABG Oxyhemoglobin ABG Sodium ABG Potassium ABG Chloride ABG Glucose Oxyhemoglobin Sodium Potassium Chloride 97.9 L Carbon Dioxide BUN 76 H Creatinine 9.9 H Glucose 111 H POC Glucose 129 H Lactic Acid Calcium Phosphorus Magnesium Total Bilirubin AST ALT Alkaline Phosphatase Total Protein Albumin Triglycerides Arterial Blood Glucose Arterial Blood Ionized Calcium Digoxin Crossmatch 01/27/21 01/27/21 01/27/21 11:30 17:08 23:28 WBC RBC Hgb Hct MCV MCHC RDW Plt Count Lymph % (Auto) [place] % (Auto) Eos % (Auto) Lymph # (Auto) [place] # (Auto) Eos # (Auto) Seg Neutrophils % Seg Neuts % (Manual) Lymphocytes % (Manual) Monocytes % (Manual) Seg Neutrophils # Seg Neutrophils # Man Lymphocytes # (Manual) Monocytes # (Manual) PT INR ABG pH POC ABG pCO2 POC ABG pO2 ABG pO2 ABG HCO3 ABG O2 Saturation ABG Base Excess ABG Hemoglobin ABG Oxyhemoglobin ABG Sodium ABG Potassium ABG Chloride ABG Glucose Oxyhemoglobin Sodium Potassium Chloride Carbon Dioxide BUN Creatinine Glucose POC Glucose 128 H 158 H 114 H Lactic Acid Calcium Phosphorus Magnesium Total Bilirubin AST ALT Alkaline Phosphatase Total Protein Albumin Triglycerides Arterial Blood Glucose Arterial Blood Ionized Calcium Digoxin Crossmatch 01/28/21 01/28/21 01/28/21 05:17 11:27 18:01 WBC RBC Hgb Hct MCV MCHC RDW Plt Count Lymph % (Auto) [place] % (Auto) Eos % (Auto) Lymph # (Auto) [place] # (Auto) Eos # (Auto) Seg Neutrophils % Seg Neuts % (Manual) Lymphocytes % (Manual) Monocytes % (Manual) Seg Neutrophils # Seg Neutrophils # Man Lymphocytes # (Manual) Monocytes # (Manual) PT INR ABG pH POC ABG pCO2 POC ABG pO2 ABG pO2 ABG HCO3 ABG O2 Saturation ABG Base Excess ABG Hemoglobin ABG Oxyhemoglobin ABG Sodium ABG Potassium ABG Chloride ABG Glucose Oxyhemoglobin Sodium Potassium Chloride Carbon Dioxide BUN Creatinine Glucose POC Glucose 113 H 134 H 111 H Lactic Acid Calcium Phosphorus Magnesium Total Bilirubin AST ALT Alkaline Phosphatase Total Protein Albumin Triglycerides Arterial Blood Glucose Arterial Blood Ionized Calcium Digoxin Crossmatch 01/29/21 01/29/21 01/29/21 04:54 06:45 11:10 WBC RBC Hgb Hct MCV MCHC RDW Plt Count Lymph % (Auto) [place] % (Auto) Eos % (Auto) Lymph # (Auto) [place] # (Auto) Eos # (Auto) Seg Neutrophils % Seg Neuts % (Manual) Lymphocytes % (Manual) Monocytes % (Manual) Seg Neutrophils # Seg Neutrophils # Man Lymphocytes # (Manual) Monocytes # (Manual) PT INR ABG pH POC ABG pCO2 POC ABG pO2 ABG pO2 ABG HCO3 ABG O2 Saturation ABG Base Excess ABG Hemoglobin ABG Oxyhemoglobin ABG Sodium ABG Potassium ABG Chloride ABG Glucose Oxyhemoglobin Sodium Potassium 3.4 L Chloride Carbon Dioxide BUN 51 H Creatinine 6.9 H Glucose 120 H POC Glucose 111 H 106 H Lactic Acid Calcium Phosphorus 2.10 L Magnesium Total Bilirubin AST ALT Alkaline Phosphatase 182 H Total Protein 6.0 L Albumin 2.9 L Triglycerides Arterial Blood Glucose Arterial Blood Ionized Calcium Digoxin Crossmatch 01/29/21 01/30/21 01/30/21 16:47 04:15 06:55 WBC RBC Hgb Hct MCV MCHC RDW Plt Count Lymph % (Auto) [place] % (Auto) Eos % (Auto) Lymph # (Auto) [place] # (Auto) Eos # (Auto) Seg Neutrophils % Seg Neuts % (Manual) Lymphocytes % (Manual) Monocytes % (Manual) Seg Neutrophils # Seg Neutrophils # Man Lymphocytes # (Manual) Monocytes # (Manual) PT INR ABG pH POC ABG pCO2 POC ABG pO2 ABG pO2 ABG HCO3 ABG O2 Saturation ABG Base Excess ABG Hemoglobin ABG Oxyhemoglobin ABG Sodium ABG Potassium ABG Chloride ABG Glucose Oxyhemoglobin Sodium Potassium Chloride Carbon Dioxide BUN 73 H Creatinine 9.2 H Glucose 119 H POC Glucose 110 H 126 H Lactic Acid Calcium Phosphorus 4.70 H D Magnesium Total Bilirubin AST ALT Alkaline Phosphatase Total Protein Albumin Triglycerides Arterial Blood Glucose Arterial Blood Ionized Calcium Digoxin Crossmatch 01/30/21 01/31/21 01/31/21 18:25 00:51 07:15 WBC RBC Hgb Hct MCV MCHC RDW Plt Count Lymph % (Auto) [place] % (Auto) Eos % (Auto) Lymph # (Auto) [place] # (Auto) Eos # (Auto) Seg Neutrophils % Seg Neuts % (Manual) Lymphocytes % (Manual) Monocytes % (Manual) Seg Neutrophils # Seg Neutrophils # Man Lymphocytes # (Manual) Monocytes # (Manual) PT INR ABG pH POC ABG pCO2 POC ABG pO2 ABG pO2 ABG HCO3 ABG O2 Saturation ABG Base Excess ABG Hemoglobin ABG Oxyhemoglobin ABG Sodium ABG Potassium ABG Chloride ABG Glucose Oxyhemoglobin Sodium Potassium Chloride Carbon Dioxide BUN Creatinine Glucose POC Glucose 117 H 134 H 134 H Lactic Acid Calcium Phosphorus Magnesium Total Bilirubin AST ALT Alkaline Phosphatase Total Protein Albumin Triglycerides Arterial Blood Glucose Arterial Blood Ionized Calcium Digoxin Crossmatch 01/31/21 01/31/21 02/01/21 11:45 23:15 05:51 WBC RBC Hgb Hct MCV MCHC RDW Plt Count Lymph % (Auto) [place] % (Auto) Eos % (Auto) Lymph # (Auto) [place] # (Auto) Eos # (Auto) Seg Neutrophils % Seg Neuts % (Manual) Lymphocytes % (Manual) Monocytes % (Manual) Seg Neutrophils # Seg Neutrophils # Man Lymphocytes # (Manual) Monocytes # (Manual) PT INR ABG pH POC ABG pCO2 POC ABG pO2 ABG pO2 ABG HCO3 ABG O2 Saturation ABG Base Excess ABG Hemoglobin ABG Oxyhemoglobin ABG Sodium ABG Potassium ABG Chloride ABG Glucose Oxyhemoglobin Sodium Potassium Chloride Carbon Dioxide BUN Creatinine Glucose POC Glucose 119 H 120 H 125 H Lactic Acid Calcium Phosphorus Magnesium Total Bilirubin AST ALT Alkaline Phosphatase Total Protein Albumin Triglycerides Arterial Blood Glucose Arterial Blood Ionized Calcium Digoxin Crossmatch 02/01/21 02/02/21 02/02/21 22:05 03:25 06:16 WBC RBC Hgb Hct MCV MCHC RDW Plt Count Lymph % (Auto) [place] % (Auto) Eos % (Auto) Lymph # (Auto) [place] # (Auto) Eos # (Auto) Seg Neutrophils % Seg Neuts % (Manual) Lymphocytes % (Manual) Monocytes % (Manual) Seg Neutrophils # Seg Neutrophils # Man Lymphocytes # (Manual) Monocytes # (Manual) PT INR ABG pH POC ABG pCO2 POC ABG pO2 ABG pO2 ABG HCO3 ABG O2 Saturation ABG Base Excess ABG Hemoglobin ABG Oxyhemoglobin ABG Sodium ABG Potassium ABG Chloride ABG Glucose Oxyhemoglobin Sodium Potassium 3.3 L Chloride Carbon Dioxide BUN 38 H Creatinine 5.8 H Glucose 115 H POC Glucose 118 H 130 H Lactic Acid Calcium Phosphorus 1.80 L Magnesium 1.60 L Total Bilirubin AST ALT Alkaline Phosphatase Total Protein Albumin Triglycerides Arterial Blood Glucose Arterial Blood Ionized Calcium Digoxin Crossmatch 02/02/21 02/02/21 02/03/21 17:29 21:53 04:50 WBC RBC Hgb Hct MCV MCHC RDW Plt Count Lymph % (Auto) [place] % (Auto) Eos % (Auto) Lymph # (Auto) [place] # (Auto) Eos # (Auto) Seg Neutrophils % Seg Neuts % (Manual) Lymphocytes % (Manual) Monocytes % (Manual) Seg Neutrophils # Seg Neutrophils # Man Lymphocytes # (Manual) Monocytes # (Manual) PT INR ABG pH POC ABG pCO2 POC ABG pO2 ABG pO2 ABG HCO3 ABG O2 Saturation ABG Base Excess ABG Hemoglobin ABG Oxyhemoglobin ABG Sodium ABG Potassium ABG Chloride ABG Glucose Oxyhemoglobin Sodium Potassium Chloride Carbon Dioxide BUN Creatinine Glucose POC Glucose 115 H 120 H Lactic Acid Calcium Phosphorus Magnesium 1.60 L Total Bilirubin AST ALT Alkaline Phosphatase Total Protein Albumin Triglycerides Arterial Blood Glucose Arterial Blood Ionized Calcium Digoxin Crossmatch 02/03/21 02/03/21 02/03/21 06:12 18:25 23:47 WBC RBC Hgb Hct MCV MCHC RDW Plt Count Lymph % (Auto) [place] % (Auto) Eos % (Auto) Lymph # (Auto) [place] # (Auto) Eos # (Auto) Seg Neutrophils % Seg Neuts % (Manual) Lymphocytes % (Manual) Monocytes % (Manual) Seg Neutrophils # Seg Neutrophils # Man Lymphocytes # (Manual) Monocytes # (Manual) PT INR ABG pH POC ABG pCO2 POC ABG pO2 ABG pO2 ABG HCO3 ABG O2 Saturation ABG Base Excess ABG Hemoglobin ABG Oxyhemoglobin ABG Sodium ABG Potassium ABG Chloride ABG Glucose Oxyhemoglobin Sodium Potassium Chloride Carbon Dioxide BUN Creatinine Glucose POC Glucose 112 H 112 H 131 H Lactic Acid Calcium Phosphorus Magnesium Total Bilirubin AST ALT Alkaline Phosphatase Total Protein Albumin Triglycerides Arterial Blood Glucose Arterial Blood Ionized Calcium Digoxin Crossmatch 02/04/21 02/04/21 02/04/21 05:40 09:37 12:03 WBC RBC Hgb Hct MCV MCHC RDW Plt Count Lymph % (Auto) [place] % (Auto) Eos % (Auto) Lymph # (Auto) [place] # (Auto) Eos # (Auto) Seg Neutrophils % Seg Neuts % (Manual) Lymphocytes % (Manual) Monocytes % (Manual) Seg Neutrophils # Seg Neutrophils # Man Lymphocytes # (Manual) Monocytes # (Manual) PT INR ABG pH POC ABG pCO2 POC ABG pO2 ABG pO2 ABG HCO3 ABG O2 Saturation ABG Base Excess ABG Hemoglobin ABG Oxyhemoglobin ABG Sodium ABG Potassium ABG Chloride ABG Glucose Oxyhemoglobin Sodium 131 L D 135 L Potassium 3.0 L 3.1 L Chloride 93.4 L 96.7 L Carbon Dioxide BUN 46 H 52 H Creatinine 6.5 H 7.3 H Glucose 363 H 128 H POC Glucose 129 H Lactic Acid Calcium Phosphorus 2.40 L Magnesium 1.50 L 1.60 L Total Bilirubin AST ALT Alkaline Phosphatase Total Protein Albumin Triglycerides Arterial Blood Glucose Arterial Blood Ionized Calcium Digoxin Crossmatch 02/04/21 02/04/21 02/05/21 17:25 21:38 05:19 WBC RBC Hgb Hct MCV MCHC RDW Plt Count Lymph % (Auto) [place] % (Auto) Eos % (Auto) Lymph # (Auto) [place] # (Auto) Eos # (Auto) Seg Neutrophils % Seg Neuts % (Manual) Lymphocytes % (Manual) Monocytes % (Manual) Seg Neutrophils # Seg Neutrophils # Man Lymphocytes # (Manual) Monocytes # (Manual) PT INR ABG pH POC ABG pCO2 POC ABG pO2 ABG pO2 ABG HCO3 ABG O2 Saturation ABG Base Excess ABG Hemoglobin ABG Oxyhemoglobin ABG Sodium ABG Potassium ABG Chloride ABG Glucose Oxyhemoglobin Sodium Potassium Chloride Carbon Dioxide BUN Creatinine Glucose POC Glucose 132 H 108 H 116 H Lactic Acid Calcium Phosphorus Magnesium Total Bilirubin AST ALT Alkaline Phosphatase Total Protein Albumin Triglycerides Arterial Blood Glucose Arterial Blood Ionized Calcium Digoxin Crossmatch 02/05/21 02/05/21 02/05/21 06:30 11:25 16:20 WBC RBC Hgb Hct MCV MCHC RDW Plt Count Lymph % (Auto) [place] % (Auto) Eos % (Auto) Lymph # (Auto) [place] # (Auto) Eos # (Auto) Seg Neutrophils % Seg Neuts % (Manual) Lymphocytes % (Manual) Monocytes % (Manual) Seg Neutrophils # Seg Neutrophils # Man Lymphocytes # (Manual) Monocytes # (Manual) PT INR ABG pH POC ABG pCO2 POC ABG pO2 ABG pO2 ABG HCO3 ABG O2 Saturation ABG Base Excess ABG Hemoglobin ABG Oxyhemoglobin ABG Sodium ABG Potassium ABG Chloride ABG Glucose Oxyhemoglobin Sodium Potassium 3.2 L Chloride 96.5 L Carbon Dioxide BUN 76 H Creatinine 9.6 H Glucose 112 H POC Glucose 118 H 123 H Lactic Acid Calcium Phosphorus Magnesium 1.50 L Total Bilirubin AST ALT Alkaline Phosphatase 177 H Total Protein 6.0 L Albumin 2.9 L Triglycerides Arterial Blood Glucose Arterial Blood Ionized Calcium Digoxin Crossmatch 02/06/21 02/06/21 02/06/21 05:42 06:42 08:18 WBC RBC Hgb Hct MCV MCHC RDW Plt Count Lymph % (Auto) [place] % (Auto) Eos % (Auto) Lymph # (Auto) [place] # (Auto) Eos # (Auto) Seg Neutrophils % Seg Neuts % (Manual) Lymphocytes % (Manual) Monocytes % (Manual) Seg Neutrophils # Seg Neutrophils # Man Lymphocytes # (Manual) Monocytes # (Manual) PT INR ABG pH POC ABG pCO2 POC ABG pO2 ABG pO2 ABG HCO3 ABG O2 Saturation ABG Base Excess ABG Hemoglobin ABG Oxyhemoglobin ABG Sodium ABG Potassium ABG Chloride ABG Glucose Oxyhemoglobin Sodium 133 L Potassium Chloride 92.7 L Carbon Dioxide 19 L BUN 100 H Creatinine 11.9 H Glucose 114 H POC Glucose 118 H 114 H Lactic Acid Calcium Phosphorus 4.70 H Magnesium 1.60 L Total Bilirubin AST ALT Alkaline Phosphatase Total Protein Albumin Triglycerides Arterial Blood Glucose Arterial Blood Ionized Calcium Digoxin Crossmatch 02/06/21 02/07/21 02/07/21 23:22 04:35 04:35 WBC RBC 2.52 L Hgb 8.0 L Hct 22.5 L MCV MCHC 36 H RDW 16.7 H Plt Count Lymph % (Auto) 12.7 L [place] % (Auto) 10.2 H Eos % (Auto) 5.0 H Lymph # (Auto) [place] # (Auto) 1.0 H Eos # (Auto) 0.5 H Seg Neutrophils % 71.6 H Seg Neuts % (Manual) Lymphocytes % (Manual) Monocytes % (Manual) Seg Neutrophils # Seg Neutrophils # Man Lymphocytes # (Manual) Monocytes # (Manual) PT INR ABG pH POC ABG pCO2 POC ABG pO2 ABG pO2 ABG HCO3 ABG O2 Saturation ABG Base Excess ABG Hemoglobin ABG Oxyhemoglobin ABG Sodium ABG Potassium ABG Chloride ABG Glucose Oxyhemoglobin Sodium 135 L Potassium 3.4 L Chloride 95.5 L Carbon Dioxide BUN 59 H Creatinine 8.5 H Glucose POC Glucose 117 H Lactic Acid Calcium Phosphorus Magnesium Total Bilirubin AST ALT Alkaline Phosphatase Total Protein Albumin Triglycerides Arterial Blood Glucose Arterial Blood Ionized Calcium Digoxin Crossmatch 02/07/21 02/07/21 02/07/21 04:35 11:31 22:49 WBC RBC Hgb Hct MCV MCHC RDW Plt Count Lymph % (Auto) [place] % (Auto) Eos % (Auto) Lymph # (Auto) [place] # (Auto) Eos # (Auto) Seg Neutrophils % Seg Neuts % (Manual) Lymphocytes % (Manual) Monocytes % (Manual) Seg Neutrophils # Seg Neutrophils # Man Lymphocytes # (Manual) Monocytes # (Manual) PT INR ABG pH POC ABG pCO2 POC ABG pO2 ABG pO2 ABG HCO3 ABG O2 Saturation ABG Base Excess ABG Hemoglobin ABG Oxyhemoglobin ABG Sodium ABG Potassium ABG Chloride ABG Glucose Oxyhemoglobin Sodium Potassium Chloride Carbon Dioxide BUN Creatinine Glucose POC Glucose 117 H 122 H Lactic Acid Calcium Phosphorus Magnesium 1.60 L Total Bilirubin AST ALT Alkaline Phosphatase Total Protein Albumin Triglycerides Arterial Blood Glucose Arterial Blood Ionized Calcium Digoxin Crossmatch 02/08/21 02/08/21 02/08/21 04:56 06:45 22:38 WBC RBC Hgb Hct MCV MCHC RDW Plt Count Lymph % (Auto) [place] % (Auto) Eos % (Auto) Lymph # (Auto) [place] # (Auto) Eos # (Auto) Seg Neutrophils % Seg Neuts % (Manual) Lymphocytes % (Manual) Monocytes % (Manual) Seg Neutrophils # Seg Neutrophils # Man Lymphocytes # (Manual) Monocytes # (Manual) PT INR ABG pH POC ABG pCO2 POC ABG pO2 ABG pO2 ABG HCO3 ABG O2 Saturation ABG Base Excess ABG Hemoglobin ABG Oxyhemoglobin ABG Sodium ABG Potassium ABG Chloride ABG Glucose Oxyhemoglobin Sodium 134 L Potassium 3.5 L Chloride 94.2 L Carbon Dioxide BUN 78 H Creatinine 11.4 H Glucose 101 H POC Glucose 113 H 128 H Lactic Acid Calcium Phosphorus Magnesium Total Bilirubin AST ALT Alkaline Phosphatase Total Protein Albumin Triglycerides Arterial Blood Glucose Arterial Blood Ionized Calcium Digoxin Crossmatch 02/09/21 02/09/21 02/09/21 04:43 07:44 11:33 WBC RBC Hgb Hct MCV MCHC RDW Plt Count Lymph % (Auto) [place] % (Auto) Eos % (Auto) Lymph # (Auto) [place] # (Auto) Eos # (Auto) Seg Neutrophils % Seg Neuts % (Manual) Lymphocytes % (Manual) Monocytes % (Manual) Seg Neutrophils # Seg Neutrophils # Man Lymphocytes # (Manual) Monocytes # (Manual) PT INR ABG pH POC ABG pCO2 POC ABG pO2 ABG pO2 ABG HCO3 ABG O2 Saturation ABG Base Excess ABG Hemoglobin ABG Oxyhemoglobin ABG Sodium ABG Potassium ABG Chloride ABG Glucose Oxyhemoglobin Sodium 135 L Potassium 3.2 L Chloride 93.0 L Carbon Dioxide BUN 42 H Creatinine 8.1 H Glucose 128 H POC Glucose 115 H 127 H Lactic Acid Calcium Phosphorus 2.20 L D Magnesium Total Bilirubin AST ALT Alkaline Phosphatase Total Protein Albumin Triglycerides Arterial Blood Glucose Arterial Blood Ionized Calcium Digoxin Crossmatch 02/09/21 02/09/21 02/10/21 17:31 22:15 06:00 WBC RBC Hgb Hct MCV MCHC RDW Plt Count Lymph % (Auto) [place] % (Auto) Eos % (Auto) Lymph # (Auto) [place] # (Auto) Eos # (Auto) Seg Neutrophils % Seg Neuts % (Manual) Lymphocytes % (Manual) Monocytes % (Manual) Seg Neutrophils # Seg Neutrophils # Man Lymphocytes # (Manual) Monocytes # (Manual) PT INR ABG pH POC ABG pCO2 POC ABG pO2 ABG pO2 ABG HCO3 ABG O2 Saturation ABG Base Excess ABG Hemoglobin ABG Oxyhemoglobin ABG Sodium ABG Potassium ABG Chloride ABG Glucose Oxyhemoglobin Sodium Potassium Chloride 95.4 L Carbon Dioxide BUN 65 H Creatinine 10.2 H Glucose 114 H POC Glucose 114 H 117 H Lactic Acid Calcium Phosphorus 2.20 L Magnesium 2.80 H Total Bilirubin AST ALT Alkaline Phosphatase Total Protein Albumin Triglycerides Arterial Blood Glucose Arterial Blood Ionized Calcium Digoxin Crossmatch 02/10/21 02/10/21 02/10/21 06:21 11:45 22:48 WBC RBC Hgb Hct MCV MCHC RDW Plt Count Lymph % (Auto) [place] % (Auto) Eos % (Auto) Lymph # (Auto) [place] # (Auto) Eos # (Auto) Seg Neutrophils % Seg Neuts % (Manual) Lymphocytes % (Manual) Monocytes % (Manual) Seg Neutrophils # Seg Neutrophils # Man Lymphocytes # (Manual) Monocytes # (Manual) PT INR ABG pH POC ABG pCO2 POC ABG pO2 ABG pO2 ABG HCO3 ABG O2 Saturation ABG Base Excess ABG Hemoglobin ABG Oxyhemoglobin ABG Sodium ABG Potassium ABG Chloride ABG Glucose Oxyhemoglobin Sodium 135 L Potassium 3.1 L Chloride 96.3 L Carbon Dioxide BUN 29 H Creatinine 6.2 H Glucose 115 H POC Glucose 111 H 129 H Lactic Acid Calcium 8.0 L Phosphorus Magnesium Total Bilirubin AST ALT Alkaline Phosphatase Total Protein Albumin Triglycerides Arterial Blood Glucose Arterial Blood Ionized Calcium Digoxin Crossmatch 02/10/21 02/11/21 02/11/21 23:58 04:20 06:23 WBC RBC Hgb Hct MCV MCHC RDW Plt Count Lymph % (Auto) [place] % (Auto) Eos % (Auto) Lymph # (Auto) [place] # (Auto) Eos # (Auto) Seg Neutrophils % Seg Neuts % (Manual) Lymphocytes % (Manual) Monocytes % (Manual) Seg Neutrophils # Seg Neutrophils # Man Lymphocytes # (Manual) Monocytes # (Manual) PT INR ABG pH POC ABG pCO2 POC ABG pO2 ABG pO2 ABG HCO3 ABG O2 Saturation ABG Base Excess ABG Hemoglobin ABG Oxyhemoglobin ABG Sodium ABG Potassium ABG Chloride ABG Glucose Oxyhemoglobin Sodium 136 L Potassium 3.3 L Chloride 97.4 L Carbon Dioxide BUN 34 H Creatinine 6.9 H Glucose 116 H POC Glucose 125 H 120 H Lactic Acid Calcium Phosphorus 2.00 L Magnesium Total Bilirubin AST ALT Alkaline Phosphatase Total Protein Albumin Triglycerides Arterial Blood Glucose Arterial Blood Ionized Calcium Digoxin Crossmatch 02/11/21 02/11/21 02/11/21 11:25 17:31 23:23 WBC RBC Hgb Hct MCV MCHC RDW Plt Count Lymph % (Auto) [place] % (Auto) Eos % (Auto) Lymph # (Auto) [place] # (Auto) Eos # (Auto) Seg Neutrophils % Seg Neuts % (Manual) Lymphocytes % (Manual) Monocytes % (Manual) Seg Neutrophils # Seg Neutrophils # Man Lymphocytes # (Manual) Monocytes # (Manual) PT INR ABG pH POC ABG pCO2 POC ABG pO2 ABG pO2 ABG HCO3 ABG O2 Saturation ABG Base Excess ABG Hemoglobin ABG Oxyhemoglobin ABG Sodium ABG Potassium ABG Chloride ABG Glucose Oxyhemoglobin Sodium Potassium Chloride Carbon Dioxide BUN Creatinine Glucose POC Glucose 125 H 115 H 119 H Lactic Acid Calcium Phosphorus Magnesium Total Bilirubin AST ALT Alkaline Phosphatase Total Protein Albumin Triglycerides Arterial Blood Glucose Arterial Blood Ionized Calcium Digoxin Crossmatch 02/12/21 02/12/21 02/12/21 11:30 11:47 17:09 WBC RBC Hgb Hct MCV MCHC RDW Plt Count Lymph % (Auto) [place] % (Auto) Eos % (Auto) Lymph # (Auto) [place] # (Auto) Eos # (Auto) Seg Neutrophils % Seg Neuts % (Manual) Lymphocytes % (Manual) Monocytes % (Manual) Seg Neutrophils # Seg Neutrophils # Man Lymphocytes # (Manual) Monocytes # (Manual) PT INR ABG pH POC ABG pCO2 POC ABG pO2 ABG pO2 ABG HCO3 ABG O2 Saturation ABG Base Excess ABG Hemoglobin ABG Oxyhemoglobin ABG Sodium ABG Potassium ABG Chloride ABG Glucose Oxyhemoglobin Sodium 135 L Potassium Chloride 97.0 L Carbon Dioxide BUN 63 H Creatinine 9.8 H Glucose 113 H POC Glucose 117 H 116 H Lactic Acid Calcium Phosphorus Magnesium Total Bilirubin AST ALT Alkaline Phosphatase Total Protein Albumin Triglycerides Arterial Blood Glucose Arterial Blood Ionized Calcium Digoxin Crossmatch 02/13/21 02/13/21 02/13/21 00:27 06:05 22:06 WBC RBC Hgb Hct MCV MCHC RDW Plt Count Lymph % (Auto) [place] % (Auto) Eos % (Auto) Lymph # (Auto) [place] # (Auto) Eos # (Auto) Seg Neutrophils % Seg Neuts % (Manual) Lymphocytes % (Manual) Monocytes % (Manual) Seg Neutrophils # Seg Neutrophils # Man Lymphocytes # (Manual) Monocytes # (Manual) PT INR ABG pH POC ABG pCO2 POC ABG pO2 ABG pO2 ABG HCO3 ABG O2 Saturation ABG Base Excess ABG Hemoglobin ABG Oxyhemoglobin ABG Sodium ABG Potassium ABG Chloride ABG Glucose Oxyhemoglobin Sodium Potassium Chloride Carbon Dioxide 20 L BUN 80 H Creatinine 11.5 H Glucose 111 H POC Glucose 110 H 115 H Lactic Acid Calcium Phosphorus 5.00 H D Magnesium Total Bilirubin AST ALT Alkaline Phosphatase 149 H Total Protein 5.9 L Albumin 3.2 L Triglycerides Arterial Blood Glucose Arterial Blood Ionized Calcium Digoxin Crossmatch 02/14/21 02/14/21 02/14/21 06:09 09:24 09:24 WBC 18.2 H RBC 2.44 L Hgb 7.4 L Hct 22.5 L MCV MCHC RDW 18.1 H Plt Count Lymph % (Auto) [place] % (Auto) Eos % (Auto) Lymph # (Auto) [place] # (Auto) Eos # (Auto) Seg Neutrophils % Seg Neuts % (Manual) Lymphocytes % (Manual) Monocytes % (Manual) Seg Neutrophils # Seg Neutrophils # Man Lymphocytes # (Manual) Monocytes # (Manual) PT INR ABG pH POC ABG pCO2 POC ABG pO2 ABG pO2 ABG HCO3 ABG O2 Saturation ABG Base Excess ABG Hemoglobin ABG Oxyhemoglobin ABG Sodium ABG Potassium ABG Chloride ABG Glucose Oxyhemoglobin Sodium 136 L Potassium Chloride Carbon Dioxide BUN 46 H Creatinine 8.1 H Glucose 126 H POC Glucose 124 H Lactic Acid Calcium Phosphorus 1.40 L D Magnesium 1.30 L Total Bilirubin AST ALT Alkaline Phosphatase Total Protein Albumin Triglycerides Arterial Blood Glucose Arterial Blood Ionized Calcium Digoxin Crossmatch Chest x-ray: report reviewed, image reviewed Additional Studies: CHEST 1 VIEW 02/14/21 INDICATION: fever. COMPARISON: 01/03/2021 FINDINGS: Support devices: Left IJ permacath and PICC line remain in adequate position. The endotracheal tube and nasogastric tube have been removed. Heart: Stable cardiomegaly. Lungs/Pleura: The lungs are clear with no evidence for infiltrate, pleural fluid or pneumothorax. Additional findings: None. IMPRESSION: Stable cardiomegaly. Lungs clear. Allied health notes reviewed: nursing
[2021-02-14 11:36] LABS: Anisocytosis 1+; Band Neutrophils # (Manual) 0.2 K/mm3; Large Platelets Rare; Platelet Estimate Consistent w Auto; Tear Drop Cells Few; Total Cells Counted 100
[2021-02-14 11:37] LABS: Platelet Count 183 K/mm3 (140-440)
[2021-02-14] MEDS: DIGOXIN 0.125 MG TAB PO SCH (12:19)
[2021-02-14] MEDS: FAMOTIDINE 20 MG/2 ML INJ IV SCH ×2 (12:20→22:33)
[2021-02-14] MEDS: HEPARIN 5,000 UNIT/1 ML VIAL SUB-Q SCH ×2 (12:22→22:32)
[2021-02-14] MEDS: SCOPOLAMINE TRANSDERMAL PATCH 72 HR TD SCH (12:24)
[2021-02-14] MEDS: FLUTICASONE PROPIONATE NASAL SPRAY 16 GM NS SCH (12:29)
--- NOTE | 2021-02-14 12:53 | Progress Note ---
Assessment and Plan POD#49 s/p ex lap with extensive lysis of adhesions and two small bowel resections with primary anastamosis for SBO with necrotic segment small bowel. POD#40 s/p ex lap, resection of perforated anastamosis, washout and abthera wound vac placement. POD#38 s/p ex lap with right hemicolectomy. POD#36 s/p ex lap, with jejunal-colonic anastamosis and closure of abdomen. Febrile episode and stable. 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 Continue HARIS drain suction. HARIS drain must be secured and kept in place. Patient will need to be on TPN for the foreseeable future due to inability to use his GI tract to the point of getting adequate nutrition from oral diet at this time. continue g-tube to drainage for decompression. continue clear liquids and closely monitor HARIS drain output. C-xray improved from last one. Waiting on results from blood cultures Case management is trying to get things prepared to go home with home health. Subjective Date of service: 02/14/21 Narrative: Patient spiked fever to 102 in the last 24 hours. Patient denies any nausea or vomiting. Patient denies any new pains. Patient continues to tolerate clear liquids. Chest x-ray and blood cultures were ordered due to the fever and elevation in leukocytosis. Objective Vital Signs - 12hr 02/14/21 02/14/21 02/14/21 00:59 01:21 01:44 Temperature 99.9 F H 99.9 F H Pulse Rate 98 H 98 H Respiratory 18 18 Rate Blood Pressure 142/61 146/62 Blood Pressure 142/61 [Right] O2 Sat by Pulse 97 Oximetry 02/14/21 02/14/21 02/14/21 01:45 03:32 04:42 Temperature 99.8 F H Pulse Rate 98 H 105 H Respiratory 18 Rate Blood Pressure 146/62 144/77 Blood Pressure [Right] O2 Sat by Pulse 98 100 Oximetry 02/14/21 02/14/21 02/14/21 05:00 06:27 06:33 Temperature 99.8 F H Pulse Rate 104 H 104 H 104 H Respiratory 18 Rate Blood Pressure 144/77 144/77 Blood Pressure 144/77 [Right] O2 Sat by Pulse 100 Oximetry 02/14/21 02/14/21 02/14/21 07:51 09:09 10:10 Temperature 101.7 F H 102.3 F H Pulse Rate 99 H Respiratory 16 18 Rate Blood Pressure 122/55 Blood Pressure [Right] O2 Sat by Pulse 96 Oximetry 02/14/21 02/14/21 11:43 11:48 Temperature 99.9 F H Pulse Rate 85 85 Respiratory 18 Rate Blood Pressure 96/45 96/45 Blood Pressure [Right] O2 Sat by Pulse 100 Oximetry - General physical appearance well developed, no distress, no pain - Respiratory normal expansion, normal respiratory effort - Abdomen soft, not tender (midline incision with granulation tissue, HARIS drain with about 5-10ml brown fluid in bulb. 15ml recorded last 24 hours. G-tube bilious ) - Labs 02/14/21 09:24 02/14/21 09:24 Diabetes panel 02/14/21 Range/Units 09:24 Sodium 136 L (137-145) mmol/L Potassium 3.9 (3.6-5.0) mmol/L Chloride 98.4 (98-107) mmol/L Carbon Dioxide 25 (22-30) mmol/L BUN 46 H (9-20) mg/dL Creatinine 8.1 H (0.8-1.3) mg/dL Glucose 126 H (75-100) mg/dL Calcium 8.4 (8.4-10.2) mg/dL Calcium panel 02/14/21 Range/Units 09:24 Calcium 8.4 (8.4-10.2) mg/dL Phosphorus 1.40 L D (2.5-4.5) mg/dL Pituitary panel 02/14/21 Range/Units 09:24 Sodium 136 L (137-145) mmol/L Potassium 3.9 (3.6-5.0) mmol/L Chloride 98.4 (98-107) mmol/L Carbon Dioxide 25 (22-30) mmol/L BUN 46 H (9-20) mg/dL Creatinine 8.1 H (0.8-1.3) mg/dL Glucose 126 H (75-100) mg/dL Calcium 8.4 (8.4-10.2) mg/dL Adrenal panel 02/14/21 Range/Units 09:24 Sodium 136 L (137-145) mmol/L Potassium 3.9 (3.6-5.0) mmol/L Chloride 98.4 (98-107) mmol/L Carbon Dioxide 25 (22-30) mmol/L BUN 46 H (9-20) mg/dL Creatinine 8.1 H (0.8-1.3) mg/dL Glucose 126 H (75-100) mg/dL Calcium 8.4 (8.4-10.2) mg/dL
--- NOTE | 2021-02-14 12:59 | Progress Note ---
Assessment and Plan Cultures: 12/22/2020 blood culture: Streptococcus bovis, Prevotella 12/22/2020 PD fluid culture: No growth 12/24/2020 tracheal aspirate culture: No growth 12/24/2020 blood culture: No growth 12/31/2020 sputum culture: No growth A/P: 60-year-old male with ESRD on PD, Crohn's disease, CHF, gastroesophageal reflux disease was admitted to the hospital with complaints of abdominal pain and fever: #New onset sepsis: CXR without pneumonia. Rule out bacteremia / intra-abdominal abscess. #Small bowel obstruction/necrotic bowel: with concern for PD associated peritonitis: Nephrology and general surgery following. Status post exploratory laparotomy on 12/23/2020 with extensive lysis, primary anastomosis, found to have necrotic segment of small bowel. PD catheter remains in place. S/p ex lap, resection of perforated anastamosis, washout and abthera wound vac placement on 01/01. Repeat CT abdomen showed no new abscesses, noted small free fluid. S/p Exploratory laparotomy, Right hemicolectomy, Peritoneal lavage, Partial omentectomy, ABThera wound VAC placement on 01/03/2021. #Streptococcus bovis bacteremia and Prevotella bacteremia: secondary to above. TTE without obvious vegetations. Repeat blood cultures negative. #ESRD: Renally dose antibiotics. Used to be on PD. On HD. Recs: - repeat blood cultures - empiric renally dosed Cefepime + Vancomycin + Flagyl + Micafungin (has indwelling lines and has been on TPN) - drain output doesn't seem purulent, however if no source is identified, may need abdominal imaging Yesika Denny MD, FACP [facility] O: [phone] F: [phone] Subjective Date of service: 02/14/21 Principal diagnosis: Ac hypoxemic resp failure; Severe Sepsis; Peritonitis; Acute SBO; ESRD; CHF Interval history: ID reconsulted due to high fevers that are new. Had been off antibiotics for a while now. WBC also increased. Denies any other complaints, no cough or new shortness of breath. Has been on TPN and liquids. Objective - Exam Narrative Exam: Physical Exam: Constitutional: awake alert, calm Head, Ears, Nose: Normocephalic, atraumatic. External ears, nose normal. Eyes: Conjunctivae/corneas clear. No icterus. No ptosis. Neck: supple Cardiovascular: S1, S2 + Respiratory: AE fair bilaterally GI: drains +, midline incision, bowel sounds + Musculoskeletal: No pedal edema, no cyanosis. HD cath and left subclavian central lines + Skin: No rash or abscess Hem/Lymphatic: No palpable cervical or supraclavicular nodes. No lymphangitis Psych: calm, no agitation Neurological: awake, alert, oriented. - Constitutional Vitals: Vital Signs Temp Pulse Resp BP Pulse Ox 99.9 F H 85 18 96/45 100 02/14/21 11:43 02/14/21 11:48 02/14/21 11:43 02/14/21 11:48 02/14/21 11:43 Temperature -Last 24 Hours Temperature 99.9 F Temperature 102.3 F Temperature 101.7 F Temperature 99.8 F Temperature 99.8 F Temperature 99.9 F Temperature 99.9 F Temperature 99.8 F Temperature 99.8 F Temperature 98.9 F Temperature 98.0 F - Labs CBC & Chem 7: 02/14/21 09:24 02/14/21 09:24 Labs: Abnormal lab results 02/13/21 02/14/21 02/14/21 Range/Units 22:06 06:09 09:24 WBC (4.5-11.0) K/mm3 RBC (3.65-5.03) M/mm3 Hgb (11.8-15.2) gm/dl Hct (35.5-45.6) % RDW (13.2-15.2) % Seg Neuts % (Manual) (40.0-70.0) % Lymphocytes % (Manual) (13.4-35.0) % Seg Neutrophils # Man (1.8-7.7) K/mm3 Lymphocytes # (Manual) (1.2-5.4) K/mm3 Sodium 136 L (137-145) mmol/L BUN 46 H (9-20) mg/dL Creatinine 8.1 H (0.8-1.3) mg/dL Glucose 126 H (75-100) mg/dL POC Glucose 115 H 124 H (70-105) mg/dL Phosphorus 1.40 L D (2.5-4.5) mg/dL Magnesium 1.30 L (1.7-2.3) mg/dL 02/14/21 Range/Units 09:24 WBC 18.2 H (4.5-11.0) K/mm3 RBC 2.44 L (3.65-5.03) M/mm3 Hgb 7.4 L (11.8-15.2) gm/dl Hct 22.5 L (35.5-45.6) % RDW 18.1 H (13.2-15.2) % Seg Neuts % (Manual) 91.0 H (40.0-70.0) % Lymphocytes % (Manual) 6.0 L (13.4-35.0) % Seg Neutrophils # Man 16.6 H (1.8-7.7) K/mm3 Lymphocytes # (Manual) 1.1 L (1.2-5.4) K/mm3 Sodium (137-145) mmol/L BUN (9-20) mg/dL Creatinine (0.8-1.3) mg/dL Glucose (75-100) mg/dL POC Glucose (70-105) mg/dL Phosphorus (2.5-4.5) mg/dL Magnesium (1.7-2.3) mg/dL - Imaging and cardiology Chest x-ray: report reviewed, image reviewed (no pneumonia seen. Lines +)
[2021-02-14] MEDS ORDERED: VANCOMYCIN 1,250 MG in SODIUM CHLORIDE 0.9% 500 ML 500 ML IV ONE (13:16)
[2021-02-14] MEDS ORDERED: VANCOMYCIN PHARMACY TO DOSE IV SCH (14:00)
[2021-02-14] MEDS ORDERED: VANCOMYCIN 1,250 MG in SODIUM CHLORIDE 0.9% 250ML 250 ML IV ONE (14:15)
[2021-02-14] MEDS: metroNIDAZOLE/NS 500 MG/100 ML 500 MG/100 ML BAG IV SCH ×2 (15:03→22:31)
[2021-02-14] MEDS: METOPROLOL TARTRATE 25 MG TAB PO SCH ×2 (16:34→22:35)
[2021-02-14] MEDS: MICAFUNGIN 100 MG in SODIUM CHLORIDE 0.9% 100 ML IV SCH (18:31)
[2021-02-14] MEDS: CEFEPIME/NS 1 GM/100 ML 1 GM/100 ML BAG IV SCH (19:30)
[2021-02-14] MEDS ORDERED: TOTAL PARENTERAL NUTRITION 2,016 ML IV SCH (20:00)
[2021-02-14] MEDS: INSULIN GLARGINE 100 UNITS/ML SUB-Q SCH (22:31)
[2021-02-15] MEDS: INSULIN LISPRO 100 UNIT/ML SUB-Q SCH ×4 (04:27→17:07)
[2021-02-15] MEDS: hydrALAZINE 20 MG/1 ML INJ IV SCH ×6 (04:44→22:53)
[2021-02-15] MEDS: METOPROLOL TARTRATE 25 MG TAB PO SCH ×3 (05:13→22:53)
[2021-02-15] MEDS: metroNIDAZOLE/NS 500 MG/100 ML 500 MG/100 ML BAG IV SCH ×3 (05:14→22:47)
[2021-02-15] MEDS: DIPHENOXYLATE/ATROPINE TAB PO SCH ×4 (05:14→17:11)
[2021-02-15] MEDS: FAMOTIDINE 20 MG/2 ML INJ IV SCH ×2 (09:03→22:38)
[2021-02-15] MEDS: HEPARIN 5,000 UNIT/1 ML VIAL SUB-Q SCH ×2 (09:05→22:37)
[2021-02-15] MEDS: FLUTICASONE PROPIONATE NASAL SPRAY 16 GM NS SCH (09:06)
--- NOTE | 2021-02-15 09:10 | Progress Note ---
Assessment and Plan Assessment: * ESRD previouaslyon peritoneal dialysis; now on back up HD (on peritoneal dialysis for 2 years with no history of peritonitis) * Small bowel obstruction --s/p ex-lap with jejuno-ileal anastamosis --s/p ex lap with extensive lysis of adhesions and two small bowel resections with primary anastamosis for SBO with necrotic segment small bowel. --s/p ex lap, resection of perforated anastamosis, washout and abthera wound vac placement. --s/p ex lap with right hemicolectomy. * Acute respiratory failure * Septic shock - resolved * Bacteremia - resolved * Hyperkalemia * Anemia of ESRD * Post op ileus * Paroxysmal atrial fibrillation * Hx of nonischemic cardiomyopathy, resolving --LVEF 50-55% by echo this presentation Plan: * Continue HD MWF via left IJ permcath * 3K bath with dialysis * UF as tolerated * Blood cx pending * Epogen w/ dialysis * Rate control per cardiology * Nutrition per primary team - currently receiving TPN * Maintatin MAP >65 * AM labs Subjective Date of service: 02/15/21 Principal diagnosis: Ac hypoxemic resp failure; Severe Sepsis; Peritonitis; Acute SBO; ESRD; CHF Interval history: Patient has no complaints Objective - Vital Signs Vital signs: Vital Signs - 12hr 02/14/21 02/14/21 02/15/21 22:35 23:56 04:20 Temperature 98.3 F 98.8 F Pulse Rate 91 H 99 H Respiratory 20 20 Rate Blood Pressure 115/56 157/71 137/72 O2 Sat by Pulse 100 93 Oximetry 02/15/21 02/15/21 05:13 05:15 Temperature Pulse Rate 99 H 99 H Respiratory Rate Blood Pressure 137/72 137/72 O2 Sat by Pulse Oximetry - General Appearance General appearance: well-developed, well-nourished EENT: ATNC Respiratory: Present: Clear to Ascultation Cardiology: regular, S1S2 Gastrointestinal: normal Neurologic: no focal deficit Psychiatric: cooperative - Lab 02/16/21 05:24 02/16/21 05:24 Most recent lab results ABG pH 7.345 pH Units (7.350-7.450) L 01/07/21 17:14 ABG pCO2 40.3 mm Hg 01/07/21 17:14 ABG pO2 67.4 mm Hg (80.0-90.0) L 01/07/21 17:14 ABG HCO3 21.5 mmol/L (20.0-26.0) 01/07/21 17:14 ABG O2 Saturation 94.3 % (95.0-99.0) L 01/07/21 17:14 Calcium 9.0 mg/dL (8.4-10.2) 02/15/21 04:28 Phosphorus 2.50 mg/dL (2.5-4.5) D 02/15/21 04:28 Magnesium 1.50 mg/dL (1.7-2.3) L 02/15/21 04:28 Medications & Allergies - Medications Allergies/Adverse Reactions: Allergies No Known Allergies Allergy (Verified 06/09/20 15:27) Home Medications: Home Medications Medication Instructions Recorded Confirmed Last Taken Type Albuterol Mdi (or & Nicu Only) 2 puff IH QID PRN #1 inhalation 04/01/17 02/05/21 10/31/20 09:00 Rx [ProAir HFA Inhaler] Calcium Acetate 667 mg PO DAILY 04/20/20 02/05/21 10/31/20 09:00 History Centrum Men's Tablet 1 tab PO DAILY 04/20/20 02/05/21 10/31/20 09:00 History Cinacalcet 30 mg PO DAILY 04/20/20 02/05/21 10/31/20 09:00 History Dialyvite with Zinc Tablet 1 tab PO DAILY 04/20/20 02/05/21 10/31/20 09:00 History Magnesium 250 mg PO BID 04/20/20 02/05/21 10/31/20 17:00 History Triamcinolone 0.1% 1 1000units TRANSDERMA DAILY 04/20/20 02/05/21 10/31/20 09:00 History Vit B12/Folic Acid/B6/Aa No.15 1,000 mg PO DAILY 04/20/20 02/05/21 10/31/20 09:00 History amLODIPine 10 mg PO DAILY 06/09/20 02/05/21 10/31/20 09:00 History AtorvaSTATin 40 mg PO HS 11/01/20 02/05/21 10/31/20 21:00 History Benadryl 25 mg PO HS 03/0902/05/21 10/31/20 21:00 History Diclofenac 1 applic TRANSDERMA QID 11/01/20 02/05/21 10/31/20 19:00 History Fluticasone Propionate 1 spray INTRANASAL DAILY 11/01/20 02/05/21 10/31/20 09:00 History Vitamin D3 2,000 units PO QDAY 11/01/20 02/05/21 10/31/20 09:00 History carvediloL 12.5 mg PO DAILY 11/01/20 02/05/21 10/31/20 09:00 History hydrALAZINE 100 mg PO TID 11/01/20 02/05/21 10/31/20 19:00 History Active Medications: Generic Name Dose Route Start Last Admin Trade Name Freq PRN Reason Stop Dose Admin Acetaminophen 650 mg 02/14/21 09:00 02/14/21 16:34 Acetaminophen 325 Mg Tab PO 650 mg Q6H PRN Administration Pain, Mild (1-3) Clonidine HCl 0.2 mg 01/11/21 10:00 02/08/21 10:00 Clonidine Tts 0.2 Mg/24 Hr Patch TD Not Given We THOMAS Dextrose 50 ml 01/14/21 17:59 01/18/21 15:10 Dextrose 50% In Water (25gm) 50 Ml Syringe IV 20 ml Q30MIN PRN Administration Hypoglycemia Protocol Digoxin 0.125 mg 02/04/21 10:00 02/14/21 12:19 Digoxin 0.125 Mg Tab PO Not Given Q48HR THOMAS Diphenhydramine HCl 50 mg 01/20/21 10:10 02/01/21 14:15 Diphenhydramine 50 Mg/Ml Vial IV 50 mg Q6H PRN Administration Itching Diphenoxylate HCl/Atropine 1 tab 02/06/21 18:00 02/15/21 05:14 Diphenoxylate/Atropine Tab PO 1 tab Q6H THOMAS Administration Famotidine 10 mg 12/24/20 13:00 02/15/21 09:03 Famotidine 20 Mg/2 Ml Inj IV 10 mg BID THOMAS Administration Fluticasone Propionate 50 mcg 02/07/21 10:00 02/15/21 09:06 Fluticasone Propionate Nasal [place] 16 Gm NS 50 mcg QDAY THOMAS Administration Haloperidol Lactate 5 mg 12/29/20 14:16 01/22/21 23:56 Haloperidol Lactate 5 Mg/1 Ml Inj IV 5 mg Q12H PRN Administration Agitation Heparin Sodium (Porcine) 5,000 unit 12/24/20 10:00 02/15/21 09:05 Heparin 5,000 Unit/1 Ml Vial SUB-Q 5,000 unit Q12HR THOMAS Administration Hydralazine HCl 10 mg 01/10/21 14:00 02/15/21 05:15 Hydralazine 20 Mg/1 Ml Inj IV 10 mg Q4HR THOMAS Administration Hydrocortisone Acetate 1 applic 02/01/21 18:43 Hydrocortisone 1% Cream 28.4gm TP Q8H PRN Skin Irritation Hydromorphone HCl 0.25 mg 01/09/21 10:53 02/13/21 10:39 Hydromorphone 1 Mg/1 Ml Inj IV 0.25 mg Q6H PRN Administration Pain , Severe (7-10) Sodium Chloride 100 mls @ 999 mls/hr 01/27/21 18:37 Nacl 0.9% IV [place] PRN Hypotension Amino Acids/Electrolytes/Dextrose 2,016 mls @ 84 mls/hr 02/14/21 20:00 02/14/21 20:56 Tpn Adult IV 02/15/21 19:59 84 mls/hr DAILY@2000 [facility] Administration Protocol Cefepime HCl 1 gm in 100 mls @ 200 mls/hr 02/14/21 18:00 02/14/21 19:30 Cefepime/Ns 1 Gm/100 Ml IV 200 mls/hr QPM THOMAS Administration Protocol Metronidazole 500 mg in 100 mls @ 100 mls/hr 02/14/21 14:00 02/15/21 05:14 Flagyl 500 Mg/100 Ml IV 100 mls/hr Q8H THOMAS Administration Protocol Micafungin Sodium 100 mg/ 100 mls @ 100 mls/hr 02/14/21 14:00 02/14/21 18:31 Sodium Chloride IV 100 mls/hr Q24H THOMAS Administration Protocol Insulin Glargine 5 units 01/18/21 22:00 02/14/21 22:31 Insulin Glargine 100 Units/Ml SUB-Q 5 units QHS THOMAS Administration Insulin Human Lispro 0 unit 01/03/21 12:00 02/15/21 07:55 Insulin Lispro 100 Unit/Ml SUB-Q Not Given Q6HR [facility] Protocol Metoprolol Tartrate 25 mg 02/14/21 14:00 02/15/21 05:13 Metoprolol Tartrate 25 Mg Tab PO 25 mg Q8HR THOMAS Administration Morphine Sulfate 2 mg 02/02/21 12:00 02/03/21 13:31 Morphine 2 Mg/1 Ml Inj IV 2 mg Q3H PRN Administration Pain, Moderate (4-6) Ondansetron HCl 4 mg 01/25/21 11:56 02/14/21 03:21 Ondansetron 4 Mg/2 Ml Inj IV 4 mg Q4H PRN Administration Nausea And Vomiting Scopolamine 1 each 01/15/21 11:00 02/14/21 12:24 Scopolamine Transdermal Patch 72 Hr TD 1 each Q3D THOMAS Administration Sodium Chloride 10 ml 12/22/20 22:00 02/15/21 09:04 Sodium Chloride 0.9% 10 Ml Flush Syringe IV 10 ml BID THOMAS Administration Sodium Chloride 10 ml 12/22/20 19:42 01/29/21 02:08 Sodium Chloride 0.9% 10 Ml Flush Syringe IV 10 ml PRN PRN Administration LINE FLUSH
[2021-02-15] MEDS: EPOETIN ALFA-EPBX 10,000 UNIT/1 ML VIAL SUB-Q PRN (10:43)
[2021-02-15] MEDS: cloNIDine TTS 0.2 MG/24 HR PATCH TD SCH (11:36)
--- NOTE | 2021-02-15 12:54 | Progress Note ---
Assessment and Plan Cultures: 12/22/2020 blood culture: Streptococcus bovis, Prevotella 12/22/2020 PD fluid culture: No growth 12/24/2020 tracheal aspirate culture: No growth 12/24/2020 blood culture: No growth 12/31/2020 sputum culture: No growth 02/14/2021 blood culture: In process A/P: 60-year-old male with ESRD on PD, Crohn's disease, CHF, gastroesophageal reflux disease was admitted to the hospital with complaints of abdominal pain and fever: #New onset sepsis: CXR without pneumonia. Rule out bacteremia / intra-abdominal abscess. #Small bowel obstruction/necrotic bowel: with concern for PD associated peritonitis: Nephrology and general surgery following. Status post exploratory laparotomy on 12/23/2020 with extensive lysis, primary anastomosis, found to have necrotic segment of small bowel. PD catheter remains in place. S/p ex lap, resection of perforated anastamosis, washout and abthera wound vac placement on 01/01. Repeat CT abdomen showed no new abscesses, noted small free fluid. S/p Exploratory laparotomy, Right hemicolectomy, Peritoneal lavage, Partial omentectomy, ABThera wound VAC placement on 01/03/2021. #Streptococcus bovis bacteremia and Prevotella bacteremia: secondary to above. TTE without obvious vegetations. Repeat blood cultures negative. #ESRD: Renally dose antibiotics. Used to be on PD. On HD. Recs: - f/u blood cultures - continue empiric renally dosed Cefepime + Vancomycin + Flagyl + Micafungin (has indwelling lines and has been on TPN) - if no source is identified, may need abdominal imaging with CT with contrast coordinated with dialysis Yesika Denny MD, FACP [facility] O: [phone] F: [phone] Subjective Date of service: 02/15/21 Principal diagnosis: Ac hypoxemic resp failure; Severe Sepsis; Peritonitis; Acute SBO; ESRD; CHF Interval history: Febrile again yesterday up to 103.0 F. Seen at dialysis. No new complaints. Objective - Exam Narrative Exam: Physical Exam: Constitutional: awake, alert, calm Head, Ears, Nose: Normocephalic, atraumatic. External ears, nose normal. Eyes: Conjunctivae/corneas clear. No icterus. No ptosis. Neck: supple Cardiovascular: S1, S2 + Respiratory: AE fair bilaterally GI: drains +, midline incision, bowel sounds + Musculoskeletal: No pedal edema, no cyanosis. HD cath and left subclavian central lines + Skin: No rash or abscess Hem/Lymphatic: No palpable cervical or supraclavicular nodes. No lymphangitis Psych: calm, no agitation Neurological: awake, alert, oriented. - Constitutional Vitals: Vital Signs Temp Pulse Resp BP Pulse Ox 99.5 F 81 16 127/73 93 02/15/21 09:30 02/15/21 12:15 02/15/21 09:30 02/15/21 12:15 02/15/21 04:20 Temperature -Last 24 Hours Temperature 99.5 F Temperature 98.8 F Temperature 98.3 F Temperature 99.9 F Temperature 99.9 F Temperature 103.0 F - Labs CBC & Chem 7: 02/14/21 09:24 02/15/21 04:28 Labs: Abnormal lab results 02/14/21 02/14/21 02/14/21 Range/Units 11:44 19:11 22:24 Sodium (137-145) mmol/L Chloride (98-107) mmol/L BUN (9-20) mg/dL Creatinine (0.8-1.3) mg/dL Glucose (75-100) mg/dL POC Glucose 120 H 121 H 119 H (70-105) mg/dL Magnesium (1.7-2.3) mg/dL 02/15/21 Range/Units 04:28 Sodium 133 L (137-145) mmol/L Chloride 96.5 L (98-107) mmol/L BUN 66 H (9-20) mg/dL Creatinine 9.7 H (0.8-1.3) mg/dL Glucose 117 H (75-100) mg/dL POC Glucose (70-105) mg/dL Magnesium 1.50 L (1.7-2.3) mg/dL
--- NOTE | 2021-02-15 13:54 | Progress Note ---
Assessment and Plan Assessment and plan: Severe Sepsis with shock Streptococcus bovis bacteremia/Prevotella bacteremia Gwendolyn albicans tracheal aspirate Small bowel obstruction/necrotic bowel s/p ex lap with extensive lysis of adhesions, 2 small bowel resections with primary anastomosis, right hemicolectomy, jejunal colonic anastomosis, segmental small bowel resection Postoperative ileus Atrial fibrillation with RVR Leukocytosis Hypochloremia Gwendolyn albicans in tracheal aspirate from 12/24 ESRD on PD, PermCath to be placed Transaminitis Systolic CHF(EF 35%) Crohn's disease Hypertension Hypokalemia and hypophosphatemia -[facility], surgery, infectious disease, nephrology, vascular surgery, cardiology consulted, appreciate recommendations -12/24 S/p ex lap with extensive expectations, 2 small bowel resections with primary anastomosis with surgery on 12/23 -s/p PICC and Permacath placement with vascular surgery on 12/27 -Extubated on 12/28, reintubated 12/31 for respiratory distress and extubated 01/08 -12/29 echocardiogram shows moderate concentric LVH, small pericardial effusion, transmitral Doppler flow pattern is grade 1 abnormal relaxation pattern, left- ventricular systolic function normal, LVEF 50 to 55%, no wall motion abnormalities. -01/01 CT abdomen/pelvis shows small pericardial effusion, mild coronary artery atherosclerotic calcification, small bilateral pleural effusions with associated volume loss, no convincing evidence of bowel obstruction or inflammation, postoperative changes from interval/recent midline laparotomy with a moderate amount of free fluid throughout the abdomen, small amount of dependent free air presumably postoperative -01/02 s/p ex lap, resection of perforated anastamosis, washout and abthera wound vac placement. -01/04 s/p ex lap with right hemicolectomy. -01/06 s/p exploratory laparotomy, Jejunal colonic anastomosis, Segmental small bowel resection. -s/p Vasopressor support with Levophed and vasopressin -Transitioned to HD from PD -HD per nephro, Epogen with HD -Strict NPO -cont TPN, Octreotide drip -s/p NGT to LIWS, now placed on G-tube for decompression - s/p rectal tube -s/p IV antibiotics -Tobacco abuse cessation counseling -Trend CBC, BMP DVT/GI prophylaxis: PPI, heparin subcu, SCDs to bilateral lower extremities while in bed Brief Course: This is a 60 YO Male with ESRD on PD, GERD, Crohn's Disease, Nicotine Dependence, HTN, Systolic CHF(EF 35%) who presented to the emergency department on 12/22 with complaints of abdominal pain which began shortly after e ating fast food rated 10/10 which is periumbilical, constant, associated with fever, nausea and multiple sites of vomiting and self-reported inability to undergo PD. In the emergency room patient underwent a CT scan of the abdomen/pelvis which revealed evidence of partial small bowel obstruction, s ymptoms were consistent with bacterial peritonitis. Patient was admitted to the hospital service with sepsis, peritonitis, and small bowel obstruction with consults to general surgery, nephrology, infectious disease and [facility]. Daily clinical course: 12/23. Patient had temperature 101.2 F, tachycardia and elevated lactic acid on admission. Meet sepsis criteria. Started on IV antibiotics. ID has been consulted. Surgery consulted this a.m.-advised laparoscopy. He remains on NG tube connected to suction. 12/24. Patient was noted to have peritonitis yesterday and patient undergoing exploratory laparotomy. Patient remained intubated after procedure and is in ICU. Now on broad-spectrum antibiotics. ID on board. 12/25. Remains mechanically ventilated and sedated. Temp 103 Fahrenheit. Antibiotics broadened-ID added fluconazole and Flagyl. Blood cultures ordered. Plan to repeat CT abdomen tomorrow if not better. Surgery following. 12/26: Patient remains on mechanical ventilation on CMV tidal line 550, rate of 14, PEEP of 8 and 30% FiO2 and sedated on fentanyl 4 micrograms. Today we will remove his Jeffery and CCM dropped his rate controlled him on CPAP. We will trend CBC given recent drop in H/H. 12/27: Patient remains intubated on CMV tidal volume 550, rate 12, PEEP 8 on 30% FiO2 at the time my examination. Patient's TPN will be changed to PPN. Pat ient's fentanyl drip will be changed to IV push fentanyl and have a permacath placed today and midline. Patient was placed on a spontaneous breathing trial was switched back to CMV prior to procedure. 12/28: Patient on fentanyl but awake and follows commands. At the time of my examination he was on a CPAP trial and is scheduled to receive HD today. s/o permacath and PICC placement with vascular yesterday. His blood culture grew Prevotella and addition to Streptococcus bovis. This evening Dr. Spicer attempted to extubate the patient and his heart rate went to the 180s. Stat EKG obtained and cardiology consulted. 12/29: Patient was started on amiodarone IV for A. fib RVR yesterday and today he is more rate controlled into the 70s and 80s. Patient was extubated yesterday and is currently on Ventimask. Patient will be transferred to [facility]. Patient continues to be n.p.o. with TPN and NG tube to [facility]. He is hypokalemic today which was repleted. 12/30; patient was on IV amiodarone for treatment with RVR, rate is controlled. Patient was off oxygen. patient is n.p.o. and on TPN. Surgery is following the patient. 12/31: Patient was intubated overnight for respiratory distress and this morning on examination he was on assist control tidal volume 450, rate 20, PEEP 6, 100% FiO2 and RT was getting a ABG to adjust vent settings. Patient had a acute bump in WBC and per ID recommendations we will obtain a CT abdomen/pelvis if leukocytosis persist. Patient is on TPN and sedated with Levophed. Patient is also on vasopressor support with Levophed. Per surgery his ileus is resolving however will maintain OGT to LIWS. 01/01: Patient was started on a vasopressin yesterday late evening. This morning patient is on 20 mcg of Levophed and 0.03 vasopressin and sedated on 20 mcg of propofol. Patient WBC increased today and he is hypokalemic. We will treat hyperkalemia. Patient had a CT chest and abdomen/pelvis pending. The time examination total of 450, rate 20, PEEP of 6 and 35 percent FiO2. Per RN, Dr Pollock has stated that the patient will be returning to the OR today for likely anastomosis seen on CT abdomen/pelvis. 01/02: Patient noted, WBC improving, but noted to have anemia, will transfuse additional unit of Blood and repeat H/H. continue supportive care. 01/03: Continue to wean pressors, ABX PER ID, patient to return to OR today for washout and possible closure, CONTINUE TPN 5/12: Continues to show some improvement. Today is POD#12 s/p ex lap with extensive lysis of adhesions and two small bowel resections with primary anastamosis for SBO with necrotic segment small bowel. POD#3 s/p ex lap, resection of perforated anastamosis, washout and abthera wound vac placement. POD#1 s/p ex lap with right hemicolectomy. Surgery planning to take back to the OR on Saturday with the hope to anastamos ileum to transverse colon and close abdomen. keep NGT to suction. Pt in deep sedation due to open abdomen. Per ID - Continue IV Zosyn, renally dosed for Strep bacteremia treatment till 01/06/2021 -On TPN 01/05: Patient continues on HD, anticipate return to OR tomorrow for closure and anastemosis. Continues with deep sedation due to open abdomen 01/06: Continue supportive care, monitor pressures and electrolytes. He is post op Exploratory laparotomy, 2. Jejunal colonic anastomosis,3. Segmental small bowel resection and anastemosis closure today. Continue wound vac 01/07: Continue supportive care, Today is POD#15 s/p ex lap with extensive lysis of adhesions and two small bowel resections with primary anastamosis for SBO with necrotic segment small bowel. POD#6 s/p ex lap, resection of perforated anastamosis, washout and abthera wound vac placement. POD#4 s/p ex lap with right hemicolectomy. POD #1 exploratory laparotomy, 2. Jejunal colonic anastomosis,3. Segmental small bowel resection. Continue to monitor and corre ct electrolytes. Patient remains on fentanyl and TPN with lipids. Still hypoactive bowel sounds. 16: Patient now extubated, asked when he can go home, Still lethargic. Continue wound management, wound vac, Will need Rehab eval prior to discharge. 01/09: Patient remains on TPN, was started on labetalol drip per cardiology, patient had uncontrolled hypertension today however he cannot be given p.o. medications ileus resolves per surgery. Patient received hemodialysis today. NG tube remains to low intermittent suction. 01/10: Patient has some leukocytosis, slight hypokalemia and hyponatremia, metabolic acidosis. NG tube to LIWS, continue TPN. Patient will be downgraded to IMCU today. [facility] is working on placement. Will change frequency of hydralazine and discontinue labetalol drip. We will obtain a.m. BMP/mag/Phos and CBC. Infectious disease will like to start Zosyn if leukocytosis continues to worsen. 01/11: Patient leukocytosis has slightly improved potassium with in normal limits and other electrolytes are elevated but patient is scheduled for HD today. Remains on RA and A,A,Ox4. BP better controlled but remains elevated and we will increase clonidine dose. 01/12/2021; patient's blood pressure is better after dialysis and as needed IV medications and clonidine patch. Patient is followed by general surgery. Patient was alert and oriented and asked when he is going home. 01/13: Surgery is concerned about a leak at his anastamosis given increased output and will treat as controlled fistula and start an octreotide drip. And per surgery if he requires operative intervention will likely need to be left in discontinuity and eventual ileostomy as he has already failed two anastamoses. Patient still has tongue swelling and slurred speech. He is on Benadryl. 01/14: Patient's tongue swelling is improved, patient is alert and oriented, CAM ICU negative. Continue NG tube to low wall intermittent suction. Leukocytosis is improving. Hypomagnesemia resolved. Epogen with HD 01/15: Patient tongue swelling is much improved, bladder scan completed by bedside RN and he needed to be straight cathed. NGT output decreased. Leukocytosis improving. Patient has been having episodes of hypoglycemia during the day and he is on cyclic TPN, Lantus rescheduled to nightly and dosage decreased. 01/16: Continue management per ID and surgery. Will defer repeat CT of the a bdomen to the team surgery has been approved by nephrology. Continue current diet and advance all to ice if okay with surgery discussed with nursing staff. 01/17: Discussed surgical recommendation of strict n.p.o. except for small amount of ice as patient has already failed to anastomosis. And risk for additional surgery with tissues were extremely friable from previous scar. He continues on octreotide drip to slow down GI output HARIS drain remains in place with NG suction for decompression. Patient verbalized understanding although stressed about being discharged. We will continue IMCU care unless otherwise advised by surgery. Prognosis remains guarded continue to monitor electrolytes considering GI output. 01/18: Continue supportive care, BP mildly elevated, continue to monitor, cont inue current therapy, if no return to PO soon may consider Increasing clonidine to 0.3, PO when ok with surgery. 01/19:Continue supportive care, Per ID continue IV Zosyn, plan to stop at 3 weeks from last surgery end date: 01/24/2021. Other management per surgery. Continue TPN. 01/20: Discussed with Surgery, will continue current management. Advised patient of the findings and plan. 01/21: Continue supportive care. Continue management per surgery advance diet when okay with surgery. Plan of care discussed with the patient in detail. 01/22: NG tube to be replaced explained to the patient why this is important. I agree with PT OT discussed with nursing staff very important to let the PT team know that they should manage HARIS drain while patient is ambulating so that he d oes not come out. Continue current management. Change in ocreotide to q8h and d/c drip NOTED 01/23: Continue supportive care, HD today, counselling provided to the patient on compliance with medical management 01/24: Replace NGT, Continue management per Surgery. POD 32. Mild hypokalemia noted, will replace. 01/25: Brief summary patient is a 60-year-old male admitted with abdominal pain and noted to have necrotic bowel concerning for PD associated peritonitis. Catheter was placed to convert to HD. Patient also underwent multiple surgical interventions. Initial cultures showed Streptococcus bovis bacteremia and Prevotella bacteremia a COLIN was without vegetations repeat blood cultures have been negative. Part of the surgery is included ex lap, resection of perforated anastomosis, washout and a better wound VAC placement on 01/01. While progress has remained slow if has indeed shown some improvement. Patient is agitated about being in the hospital but understands the care management been provided his vital to his health and to prevent further surgeries. The NG tube has been pulled out 2 days ago he vehemently refused the tube being placed back but after a day of nausea with associated vomiting he was accepting of the chest tube to put back. He continues on TPN. We will continue to monitor electrolytes and correct as needed. This a.m. and erroneous blood was obtained likely from the same line as TPN repeat was done which showed normalizing factors. Patient completed antibiotics on 01/25/2020 . 01/26 Patient with severe sepsis with septic shock, small bowel obstruction, necrotic bowel s/p multiple surgeries. He complains of abdominal pain. No fever currently. He asked me when is he going home and i explained that he is not yet stable for discharge 01/27 Patient with severe sepsis with septic shock, small bowel obstruction, necrotic bowel s/p multiple surgeries. He complains of abdominal pain. No fever currently. Paroxysmal atrial fib managed by cardiology 01/28 Patient with severe sepsis with septic shock, small bowel obstruction, necrotic bowel s/p multiple surgeries. No fever currently. No abd pain currently. I discussed with Surgeon, Dr. Pollock. Continue current management. He also has paroxysmal afib, managed by Cardiology. 01/29 Patient with severe sepsis with septic shock, small bowel obstruction, necrotic bowel s/p multiple surgeries. No fever currently. No abd pain currently. I discussed with Surgeon, Dr. Pollock, yesterday. Continue current management. He also has paroxysmal afib, managed by Cardiology. He is on Metoprolol, Digoxin, Clonidine 01/30 Patient with severe sepsis with septic shock, small bowel obstruction, ne crotic bowel s/p multiple surgeries. Patient is a 60-year-old male admitted with abdominal pain and noted to have necrotic bowel concerning for PD associated peritonitis. Catheter was placed to convert to HD. Patient also underwent multiple surgical interventions. Initial cultures showed Strept ococcus bovis bacteremia and Prevotella bacteremia a COLIN was without vegetations repeat blood cultures have been negative. Part of the surgery is included ex lap, resection of perforated anastomosis, washout and a better wound VAC placement on 01/01. While progress has remained slow if has indeed shown some improvement. Patient is agitated about being in the hospital but understands the care management been provided his vital to his health and to prevent further surgeries. He continues on TPN. No fever currently. Less abdominal pain. Discussed with Surgeon, Dr. Pollock, few days ago. Continue current management. He also has paroxysmal afib, managed by Cardiology. He is on Metoprolol, Di goxin, Clonidine. ESRD on dialysis managed by Nephrology. 01/31: Continue HARIS drain suction. Ongoing treatment for anastomotic leak/controlled low output fistula. Maintain LIWS to NGT and monitor output. continue q 8h ocreotide. cont TPN. Defer to general surgery for NG tube discontinuation. 02/01: planned for g-tube placement for gastric decompression. Removed NG tube today. S/p HD -tolerated well : Status post G-tube placement today, resume TPN, patient is off from rectal tube. Continue supportive care and follow general surgery recommendation for discharge planning. Hemodialysis per schedule 02/03 -02/05: cont TPN, G-tube suction, Continue supportive care and follow general surgery recommendation for discharge planning. Hemodialysis per schedule. 02/06: Per surgery Anastamotic leak slowing down and is a controlled fistula. Continue HARIS drain suction. Since HARIS drain has continued to stay about 10ml over the last several days, plan to continue lower dose of octreotide. continue g-tube to drainage for decompression. continue clear liquids and closely monitor HARIS drain output. patient need LTAC placement. Continue to replace electrolytes and monitor phosphate level 02/07/2021; Per surgery Anastamotic leak slowing down and is a controlled fistula. Continue HARIS drain suction. Since HARIS drain has continued to stay about 10ml over the last several days, plan to continue lower dose of octreotide. continue g-tube to drainage for decompression. continue clear liquids and closely monitor HARIS drain output. patient need LTAC placement. Continue to replace electrolytes and monitor phosphate level. 02/08/2021; patient need to be transferred to LTAC. Patient expressed he wants to go home. 02/09/2021; pending LTAC placement 02/10/2021; pending LTAC placement 02/11/2021;case management continues to find a place to take him. General surgery is considering to discharge him home with home health, home TPN. 02/12/2021; patient expressed to go home. Put a consult for case management to arrange home health and home TPN. 02/13/2021; patient does not want to go to rehab or LTAC. I have discussed with case management about the option of getting home health and home PPN. Case management is working on it. 02/14: Patient now with fever Tmax 101.7, has been low grade prior, will recheck per my discussion with nursing staff. Will check CBC, Procalcitonin, blood clutu res, chest xray. Patient is a dialysis patient and has PICC line. From my understanding not returning blood. Will need to check integrity of the line. Nurse to call PICC team. Will like to monitor 24 hrs prior to planned discharge. Understand patient is still on TPN. 02/15: Recurrent spesis, in patient with mulitiple line and TPN, input from ID - f/u blood cultures. PER ID - continue empiric renally dosed Cefepime + Vancomycin + Flagyl + Micafungin (has indwelling lines and has been on TPN) - if no source is identified, may need abdominal imaging with CT with contrast coordinated with dialysis No new FEVER TODAY Continue supportive care. History Interval history: This is a 60-year-old male with ESRD on peritoneal dialysis, Crohn's, hypertension, systolic CHF (EF 35%) who was admitted with sepsis, peritonitis, small bowel obstruction and now has gram-positive cocci bacteremia. Patient clinically stable, No new complaints. Hospitalist Physical - Physical exam Narrative exam: Patient was not in cardiopulmonary distress The patient appeared well nourished and normally developed. Vital signs as documented. Head exam is unremarkable. No scleral icterus . Neck is without jugular venous distension, thyromegaly, or carotid bruits. Lungs are clear to auscultation. Cardiac exam reveals regular rate and Rhythm. Abdominal exam reveals clean midline surgical laparatomy wound. HARIS tube in place Extremities are nonedematous and both femoral and pedal pulses are normal. SENIOR ACCOUNTANT: Alert and oriented 3. No focal weakness. - Constitutional Vitals: Temp Pulse Resp BP Pulse Ox 99.5 F 81 16 139/70 93 02/15/21 09:30 02/15/21 13:30 02/15/21 09:30 02/15/21 13:30 02/15/21 04:20 General appearance: Present: no acute distress HEART Score - HEART Score Troponin: Troponin T 0.021 ng/mL (0.00-0.029) 12/22/20 14:38 Results - Labs CBC & Chem 7: 02/14/21 09:24 02/15/21 04:28 Labs: Laboratory Last Values WBC 18.2 K/mm3 (4.5-11.0) H 02/14/21 09:24 RBC 2.44 M/mm3 (3.65-5.03) L 02/14/21 09:24 Hgb 7.4 gm/dl (11.8-15.2) L 02/14/21 09:24 Hct 22.5 % (35.5-45.6) L 02/14/21 09:24 MCV 92 fl (84-94) 02/14/21 09:24 MCH 30 pg (28-32) 02/14/21 09:24 MCHC 33 % (32-34) 02/14/21 09:24 RDW 18.1 % (13.2-15.2) H 02/14/21 09:24 Plt Count 183 K/mm3 (140-440) 02/14/21 09:24 Lymph % (Auto) 12.7 % (13.4-35.0) L 02/07/21 04:35 [place] % (Auto) 10.2 % (0.0-7.3) H 02/07/21 04:35 Eos % (Auto) 5.0 % (0.0-4.3) H 02/07/21 04:35 Baso % (Auto) 0.5 % (0.0-1.8) 02/07/21 04:35 Lymph # (Auto) 1.2 K/mm3 (1.2-5.4) 02/07/21 04:35 [place] # (Auto) 1.0 K/mm3 (0.0-0.8) H 02/07/21 04:35 Eos # (Auto) 0.5 K/mm3 (0.0-0.4) H 02/07/21 04:35 Baso # (Auto) 0.0 K/mm3 (0.0-0.1) 02/07/21 04:35 Add Manual Diff Complete 02/14/21 09:24 Total Counted 100 02/14/21 09:24 Seg Neutrophils % Programming Coordinator 02/14/21 09:24 Seg Neuts % (Manual) 91.0 % (40.0-70.0) H 02/14/21 09:24 Band Neutrophils % 1.0 % 02/14/21 09:24 Lymphocytes % (Manual) 6.0 % (13.4-35.0) L 02/14/21 09:24 Reactive Lymphs % (Man) 1.0 % 12/29/20 05:16 Monocytes % (Manual) 2.0 % (0.0-7.3) 02/14/21 09:24 Eosinophils % (Manual) 2.0 % (0.0-4.3) 12/29/20 05:16 Metamyelocytes % 2.0 % 12/29/20 05:16 Nucleated RBC % Not Reportable 02/14/21 09:24 Seg Neutrophils # 6.9 K/mm3 (1.8-7.7) 02/07/21 04:35 Seg Neutrophils # Man 16.6 K/mm3 (1.8-7.7) H 02/14/21 09:24 Band Neutrophils # 0.2 K/mm3 02/14/21 09:24 Lymphocytes # (Manual) 1.1 K/mm3 (1.2-5.4) L 02/14/21 09:24 Abs React Lymphs (Man) 0.0 K/mm3 02/14/21 09:24 Monocytes # (Manual) 0.4 K/mm3 (0.0-0.8) 02/14/21 09:24 Eosinophils # (Manual) 0.0 K/mm3 (0.0-0.4) 02/14/21 09:24 Basophils # (Manual) 0.0 K/mm3 (0.0-0.1) 02/14/21 09:24 Metamyelocytes # 0.0 K/mm3 02/14/21 09:24 Myelocytes # 0.0 K/mm3 02/14/21 09:24 Promyelocytes # 0.0 K/mm3 02/14/21 09:24 Blast Cells # 0.0 K/mm3 02/14/21 09:24 WBC Morphology Not Reportable 02/14/21 09:24 Hypersegmented Neuts Not Reportable 02/14/21 09:24 Hyposegmented Neuts Not Reportable 02/14/21 09:24 Hypogranular Neuts Not Reportable 02/14/21 09:24 Smudge Cells Not Reportable 02/14/21 09:24 Toxic Granulation Not Reportable 02/14/21 09:24 Toxic Vacuolation Not Reportable 02/14/21 09:24 Dohle Bodies Not Reportable 02/14/21 09:24 Pelger-Huet Anomaly Not Reportable 02/14/21 09:24 Lamar Rods Not Reportable 02/14/21 09:24 Platelet Estimate Consistent w auto 02/14/21 09:24 Clumped Platelets Not Reportable 02/14/21 09:24 Plt Clumps, EDTA Not Reportable 02/14/21 09:24 Large Platelets Rare 02/14/21 09:24 Giant Platelets Not Reportable 02/14/21 09:24 Platelet Satelliting Not Reportable 02/14/21 09:24 Plt Morphology Comment Not Reportable 02/14/21 09:24 RBC Morphology Not Reportable 02/14/21 09:24 Dimorphic RBCs Not Reportable 02/14/21 09:24 Polychromasia Few 02/14/21 09:24 Hypochromasia Not Reportable 02/14/21 09:24 Poikilocytosis Not Reportable 02/14/21 09:24 Anisocytosis 1+ 02/14/21 09:24 Microcytosis Not Reportable 02/14/21 09:24 Macrocytosis Not Reportable 02/14/21 09:24 Spherocytes Not Reportable 02/14/21 09:24 Pappenheimer Bodies Not Reportable 02/14/21 09:24 Sickle Cells Not Reportable 02/14/21 09:24 Target Cells Not Reportable 02/14/21 09:24 Tear Drop Cells Few 02/14/21 09:24 Ovalocytes Not Reportable 02/14/21 09:24 Helmet Cells Not Reportable 02/14/21 09:24 [place] Bodies Not Reportable 02/14/21 09:24 [place] Rings Not Reportable 02/14/21 09:24 Jenny Cells Not Reportable 02/14/21 09:24 Bite Cells Not Reportable 02/14/21 09:24 Crenated Cell Not Reportable 02/14/21 09:24 Elliptocytes Not Reportable 02/14/21 09:24 Acanthocytes (Spur) Not Reportable 02/14/21 09:24 Rouleaux Not Reportable 02/14/21 09:24 Hemoglobin C Crystals Not Reportable 02/14/21 09:24 Schistocytes Not Reportable 02/14/21 09:24 Malaria parasites Not Reportable 02/14/21 09:24 Lucas Bodies Not Reportable 02/14/21 09:24 Hem Pathologist Commnt No 02/14/21 09:24 PT 16.9 Sec. (12.2-14.9) H 01/01/21 12:45 INR 1.39 (0.87-1.13) H 01/01/21 12:45 APTT 25.1 Sec. (24.2-36.6) 12/22/20 14:38 ABG pH 7.345 pH Units (7.350-7.450) L 01/07/21 17:14 POC ABG pCO2 41.4 mmHg (32.0-48.0) 01/07/21 03:07 ABG pCO2 40.3 mm Hg 01/07/21 17:14 POC ABG pO2 94.5 mmHg (83-108) 01/07/21 03:07 ABG pO2 67.4 mm Hg (80.0-90.0) L 01/07/21 17:14 POC ABG HCO3 22.7 01/07/21 03:07 ABG HCO3 21.5 mmol/L (20.0-26.0) 01/07/21 17:14 ABG O2 Saturation 94.3 % (95.0-99.0) L 01/07/21 17:14 ABG O2 Content 11.6 (0.0-44) 01/07/21 17:14 POC ABG Base Excess -2.7 01/07/21 03:07 ABG Base Excess -3.9 mmol/L (-2.0-3.0) L 01/07/21 17:14 ABG Hemoglobin 8.9 gm/dl (14.0-18.0) L 01/07/21 17:14 ABG Oxyhemoglobin 96.6 (94-98) 01/07/21 03:07 ABG Carboxyhemoglobin 1.5 % (0.0-5.0) 01/07/21 17:14 ABG Methemoglobin 0.6 % (0.0-1.5) 01/07/21 17:14 ABG Sodium 135.6 mmol/L (136.0-145.0) L 01/07/21 03:07 ABG Potassium 4.0 mmol/L (3.40-4.50) 01/07/21 03:07 ABG Chloride 102.0 mmol/L (98-107) 01/07/21 03:07 ABG Glucose 181 mg/dL (65-95) H 01/07/21 03:07 Oxyhemoglobin 92.3 % (95.0-99.0) L 01/07/21 17:14 Carboxyhemoglobin 0.7 (0.5-1.5) 01/07/21 03:07 FiO2 21 % 01/07/21 17:14 FiO2 % 45.0 01/07/21 03:07 Sodium 133 mmol/L (137-145) L 02/15/21 04:28 Potassium 4.1 mmol/L (3.6-5.0) 02/15/21 04:28 Chloride 96.5 mmol/L (98-107) L 02/15/21 04:28 Carbon Dioxide 23 mmol/L (22-30) 02/15/21 04:28 Anion Gap 18 mmol/L 02/15/21 04:28 BUN 66 mg/dL (9-20) H 02/15/21 04:28 Creatinine 9.7 mg/dL (0.8-1.3) H 02/15/21 04:28 Estimated GFR 7 ml/min 02/15/21 04:28 BUN/Creatinine Ratio 7 % 02/15/21 04:28 Glucose 117 mg/dL (75-100) H 02/15/21 04:28 POC Glucose 103 mg/dL (70-105) 02/15/21 09:47 Lactic Acid 1.70 mmol/L (0.7-2.0) 02/14/21 09:24 Calcium 9.0 mg/dL (8.4-10.2) 02/15/21 04:28 Phosphorus 2.50 mg/dL (2.5-4.5) D 02/15/21 04:28 Magnesium 1.50 mg/dL (1.7-2.3) L 02/15/21 04:28 Total Bilirubin 0.50 mg/dL (0.1-1.2) 02/13/21 06:05 AST 14 units/L (5-40) 02/13/21 06:05 ALT 20 units/L (7-56) 02/13/21 06:05 Alkaline Phosphatase 149 units/L (35-129) H 02/13/21 06:05 Ammonia 30.0 umol/L (25-60) 12/22/20 14:38 Troponin T 0.021 ng/mL (0.00-0.029) 12/22/20 14:38 Total Protein 5.9 g/dL (6.3-8.2) L 02/13/21 06:05 Albumin 3.2 g/dL (3.9-5) L 02/13/21 06:05 Albumin/Globulin Ratio 1.2 % 02/13/21 06:05 Triglycerides 72 mg/dL (2-149) 01/30/21 04:15 Lipase 41 units/L (13-60) 12/22/20 14:38 Procalcitonin 27.86 ng/mL (<0.15) 02/14/21 09:24 TSH 1.470 mlU/mL (0.270-4.200) 12/28/20 19:44 Arterial Blood Glucose 181 mg/dL (65-95) H 01/07/21 03:07 Arterial Blood Ionized Calcium 4.3 mg/dL (4.6-5.3) L 01/07/21 03:07 Urine Color Yellow (Yellow) 12/22/20 18:53 Urine Turbidity Clear (Clear) 12/22/20 18:53 Urine pH 7.0 (5.0-7.0) 12/22/20 18:53 Ur Specific [place] 1.012 (1.003-1.030) 12/22/20 18:53 Urine Protein >500 mg/dL (Negative) 12/22/20 18:53 Urine Glucose (UA) Neg mg/dL (Negative) 12/22/20 18:53 Urine Ketones Neg mg/dL (Negative) 12/22/20 18:53 Urine Blood Neg (Negative) 12/22/20 18:53 Urine Nitrite Neg (Negative) 12/22/20 18:53 Urine Bilirubin Neg (Negative) 12/22/20 18:53 Urine Urobilinogen < 2.0 mg/dL (<2.0) 12/22/20 18:53 Ur Leukocyte Esterase Neg (Negative) 12/22/20 18:53 Urine WBC (Auto) < 1.0 /HPF (0.0-6.0) 12/22/20 18:53 Urine RBC (Auto) 1.0 /HPF (0.0-6.0) 12/22/20 18:53 Fluid Type Dialysate 12/22/20 Unknown Fluid Color Colorless 12/22/20 Unknown Fluid Appearance Cloudy 12/22/20 Unknown Fluid WBC 208 /mm3 12/22/20 Unknown Fluid RBC 45 /mm3 12/22/20 Unknown Fluid Seg Neutrophils 82.0 % 12/22/20 Unknown Fluid Lymphocytes 11.0 % 12/22/20 Unknown Fluid Reactive Lymphs 0 % 12/22/20 Unknown Fluid Monocytes 7.0 % 12/22/20 Unknown Fluid Eosinophils 0 % 12/22/20 Unknown Fluid Basophils 0 % 12/22/20 Unknown Random Vancomycin 13.7 ug/mL (0-40.0) 12/26/20 Unknown Digoxin 0.9 ng/mL (0.9-2.0) 02/04/21 05:40 Coronavirus (PCR) Negative (Negative) 02/13/21 Unknown Hepatitis A IgM Ab Non-reactive (NonReactive) 02/02/21 12:41 Hep Bs Antigen Non-reactive (Negative) 02/02/21 12:41 Hep B Core IgM Ab Non-reactive (NonReactive) 02/02/21 12:41 Hepatitis C Antibody Non-reactive (NonReactive) 02/02/21 12:41 Blood Type A POSITIVE 01/06/21 07:10 Antibody Screen Negative 01/06/21 07:10 Crossmatch See Detail 01/06/21 07:10 Microbiology: Microbiology 02/14/21 14:45 Peripheral/Venous Blood Culture - Preliminary Culture in Progress 02/14/21 14:45 Peripheral/Venous Blood Culture - Preliminary Culture in Progress Jeffery/IV: Voiding Method Bedside Commode Active Medications - Current Medications Current Medications: Generic Name Dose Route Start Last Admin Trade Name Freq PRN Reason Stop Dose Admin Acetaminophen 650 mg 02/14/21 09:00 02/14/21 16:34 Acetaminophen 325 Mg Tab PO 650 mg Q6H PRN Administration Pain, Mild (1-3) Clonidine HCl 0.2 mg 01/11/21 10:00 02/15/21 11:36 Clonidine Tts 0.2 Mg/24 Hr Patch TD Not Given We THOMAS Dextrose 50 ml 01/14/21 17:59 01/18/21 15:10 Dextrose 50% In Water (25gm) 50 Ml Syringe IV 20 ml Q30MIN PRN Administration Hypoglycemia Protocol Digoxin 0.125 mg 02/04/21 10:00 02/14/21 12:19 Digoxin 0.125 Mg Tab PO Not Given Q48HR THOMAS Diphenhydramine HCl 50 mg 01/20/21 10:10 02/01/21 14:15 Diphenhydramine 50 Mg/Ml Vial IV 50 mg Q6H PRN Administration Itching Diphenoxylate HCl/Atropine 1 tab 02/06/21 18:00 02/15/21 11:36 Diphenoxylate/Atropine Tab PO Not Given Q6H THOMAS Famotidine 10 mg 12/24/20 13:00 02/15/21 09:03 Famotidine 20 Mg/2 Ml Inj IV 10 mg BID THOMAS Administration Fluticasone Propionate 50 mcg 02/07/21 10:00 02/15/21 09:06 Fluticasone Propionate Nasal [place] 16 Gm NS 50 mcg QDAY THOMAS Administration Haloperidol Lactate 5 mg 12/29/20 14:16 01/22/21 23:56 Haloperidol Lactate 5 Mg/1 Ml Inj IV 5 mg Q12H PRN Administration Agitation Heparin Sodium (Porcine) 5,000 unit 12/24/20 10:00 02/15/21 09:05 Heparin 5,000 Unit/1 Ml Vial SUB-Q 5,000 unit Q12HR THOMAS Administration Hydralazine HCl 10 mg 01/10/21 14:00 02/15/21 11:35 Hydralazine 20 Mg/1 Ml Inj IV Not Given Q4HR [facility] Hydrocortisone Acetate 1 applic 02/01/21 18:43 Hydrocortisone 1% Cream 28.4gm TP Q8H PRN Skin Irritation Hydromorphone HCl 0.25 mg 01/09/21 10:53 02/13/21 10:39 Hydromorphone 1 Mg/1 Ml Inj IV 0.25 mg Q6H PRN Administration Pain , Severe (7-10) Sodium Chloride 100 mls @ 999 mls/hr 01/27/21 18:37 Nacl 0.9% IV [place] PRN Hypotension Amino Acids/Electrolytes/Dextrose 2,016 mls @ 84 mls/hr 02/14/21 20:00 02/14/21 20:56 Tpn Adult IV 02/15/21 19:59 84 mls/hr DAILY@2000 THOMAS Administration Protocol Cefepime HCl 1 gm in 100 mls @ 200 mls/hr 02/14/21 18:00 02/14/21 19:30 Cefepime/Ns 1 Gm/100 Ml IV 200 mls/hr QPM THOMAS Administration Protocol Metronidazole 500 mg in 100 mls @ 100 mls/hr 02/14/21 14:00 02/15/21 05:14 Flagyl 500 Mg/100 Ml IV 100 mls/hr Q8H THOMAS Administration Protocol Micafungin Sodium 100 mg/ 100 mls @ 100 mls/hr 02/14/21 14:00 02/14/21 18:31 Sodium Chloride IV 100 mls/hr Q24H THOMAS Administration Protocol Fat Emulsion Intravenous 250 mls @ 21 mls/hr 02/15/21 20:00 Intralipid 20% IV 02/16/21 08:00 DAILY@1999 [facility] Amino Acids/Electrolytes/Dextrose 2,016 mls @ 84 mls/hr 02/15/21 20:00 Tpn Adult IV 02/16/21 19:59 DAILY@1999 [facility] Protocol Insulin Glargine 5 units 01/18/21 22:00 02/14/21 22:31 Insulin Glargine 100 Units/Ml SUB-Q 5 units QHS THOMAS Administration Insulin Human Lispro 0 unit 01/03/21 12:00 02/15/21 11:36 Insulin Lispro 100 Unit/Ml SUB-Q Not Given Q6HR [facility] Protocol Metoprolol Tartrate 25 mg 02/14/21 14:00 02/15/21 05:13 Metoprolol Tartrate 25 Mg Tab PO 25 mg Q8HR THOMAS Administration Morphine Sulfate 2 mg 02/02/21 12:00 02/03/21 13:31 Morphine 2 Mg/1 Ml Inj IV 2 mg Q3H PRN Administration Pain, Moderate (4-6) Ondansetron HCl 4 mg 01/25/21 11:56 02/14/21 03:21 Ondansetron 4 Mg/2 Ml Inj IV 4 mg Q4H PRN Administration Nausea And Vomiting Scopolamine 1 each 01/15/21 11:00 02/14/21 12:24 Scopolamine Transdermal Patch 72 Hr TD 1 each Q3D THOMAS Administration Sodium Chloride 10 ml 12/22/20 22:00 02/15/21 09:04 Sodium Chloride 0.9% 10 Ml Flush Syringe IV 10 ml BID THOMAS Administration Sodium Chloride 10 ml 12/22/20 19:42 01/29/21 02:08 Sodium Chloride 0.9% 10 Ml Flush Syringe IV 10 ml PRN PRN Administration LINE FLUSH Nutrition/Malnutrition Assess - Dietary Evaluation Nutrition/Malnutrition Findings: Nutrition Notes Start: 12/24/20 12:36 Freq: Status: Active Protocol: Document 02/15/21 12:12 JUAN (Rec: 02/15/21 12:14 JUAN [id number]) Nutrition Notes Initial or Follow up Reassessment Current Diagnosis CKD (stage V CKD),Sepsis, Hypertension,Heart Failure, Small Bowel Obstruction Other Pertinent Diagnosis onHD, s/p exp lap, s/p bowel resections, afib Current Diet CPN at 84 ml/hr+ Clear Liquids Labs/Tests Na 133 Mg 1.5 Pertinent Medications Reviewed Height 5 ft 7 in Weight 84 kg [place] Body Weight (kg) 67.27 BMI 29.0 Weight Status Overweight Subjective/Other Information Day 52 TPN. Will increase mg. Pt with new onset sepsis. Percent of energy/protein needs met: 85%/100% Burn Absent Trauma Absent #2 Nutrition Diagnosis Increased nutrient needs ( specify in comment below) Diagnosis Progress(for reassessment Continues documentation) #1 Nutrition Diagnosis Inadequate oral intake Diagnosis Progress(for reassessment Continues documentation) Is patient on ventilator? No Is Patient Ambulatory and/or Out of Bed Yes REE-([facility]-ambulatory/OOB) [ 8.219 [id number]] Calculation Used for Recommendations [facility] Additional Notes Pro needs 1.2-1.3g/k- 109g/day Fluid needs per MD. Nutrition Intervention Nutrition Support: Continue CPN at 84 ml/hr: MVI, Lipids, 20 mEq Mg, Osmolality : 1633. Kcal 2,130 Protein (gm) 110 Carbohydrates (gm) 350 Fat (gm) 50 Fluid (mL) 2,016 Fiber (gm) 0 Goal #1 Meet at least 75% of estimated energy and protein needs via CPN Follow-Up By: 02/16/21 Additional Comments Labs in am: BMP, Mg, Phos FU for wt and PO tolerance
--- NOTE | 2021-02-15 14:57 | Progress Note ---
Assessment and Plan This is a 60 YO Male with ESRD on PD, GERD, Crohn's Disease, Nicotine Dependence, HTN, Systolic CHF(EF 35%) who presented to the emergency department on 12/22 with complaints of abdominal pain which began shortly after eating fast food rated 10/10 which is periumbilical, constant, associated with fever, nausea and multiple sites of vomiting and self-reported inability to undergo PD. In the emergency room patient underwent a CT scan of the abdomen/pelvis which revealed evidence of partial small bowel obstruction, symptoms were consistent with bacterial peritonitis. Patient was admitted to the hospital service with sepsis, peritonitis, and small bowel obstruction with consults to general surgery, nephrology, infectious disease and [facility]. On 01/06/21 the patient underwent an exploratory laparotomy, jejunal colonic anastomosis, and segmental small bowel resection. ABG's (01/07/21): pH 7.345 pH POC ABG pCO2 41.4 mmHg ABG pCO2 40.3 mm Hg POC ABG pO2 94.5 mmHg ABG pO2 67.4 mm Hg POC ABG HCO3 22.7 ABG O2 Saturation 94.3 % Patient sleeping. on room air. O2 saturation 94%. No acute respiratory distre ss. Patient running low grade temp. No leukocytosis. Blood pressure 130/70 Chest x-ray 01/03/21 reported There is decreased inspiration compared to yesterday's exam. Hazy opacity in the right perihilar region and larger area of infiltration in the left lower lung appears stable given differences in the level of inspiration. No large pleural effusion or pneumothorax. Chest xray done 02/14/21 reported Stable cardiomegaly. Lungs clear. Patient presently on s/c heparin, famotidine, cefepime and Micafungin. Recommend to continue incentive spirometry. Start taking liquids. Still on TPN. - Patient Problems (1) Nicotine dependence Current Visit: Yes Status: Acute Qualifiers: Nicotine product type: cigarettes Substance use status: in withdrawal Qualified Code(s): F17.213 - Nicotine dependence, cigarettes, with withdrawal Plan to address problem: Counseled patient to stop smoking. (2) SOB (shortness of breath) Current Visit: No Status: Acute Plan to address problem: Improved. Patient resting on room air at this time. O2 saturation 94%. (3) Atrial fibrillation Current Visit: Yes Status: Acute Plan to address problem: Management as per cardiology. (4) CHF (congestive heart failure) Current Visit: No Status: Acute Qualifiers: Heart failure chronicity: chronic Plan to address problem: Management as per cardiology. (5) Small bowel obstruction Current Visit: Yes Status: Acute Plan to address problem: On 01/06/21 the patient underwent an exploratory laparotomy, jejunal colonic anastomosis, and segmental small bowel resection. Management as per surgery. Continue incentive spirometry (6) Small intestinal gangrene Current Visit: Yes Status: Acute Plan to address problem: On 01/06/21 the patient underwent an exploratory laparotomy, jejunal colonic anastomosis, and segmental small bowel resection. Management as per surgery. Continue incentive spirometry (7) Accelerated hypertension Current Visit: No Status: Acute Plan to address problem: Management as per primary care. (8) Acute on chronic kidney disease, stage 3 Current Visit: No Status: Acute Plan to address problem: Management as per nephrology. Subjective Date of service: 02/15/21 Principal diagnosis: Ac hypoxemic resp failure; Severe Sepsis; Peritonitis; Acut e SBO; ESRD; CHF Interval history: This is a 60 YO Male with ESRD on PD, GERD, Crohn's Disease, Nicotine Dependence, HTN, Systolic CHF(EF 35%) who presented to the emergency department on 12/22 with complaints of abdominal pain which began shortly after eating fast food rated 10/10 which is periumbilical, constant, associated with fever, nausea and multiple sites of vomiting and self-reported inability to undergo PD. In the emergency room patient underwent a CT scan of the abdomen/pelvis which revealed evidence of partial small bowel obstruction, symptoms were consistent with bacterial peritonitis. Patient was admitted to the hospital service with sepsis, peritonitis, and small bowel obstruction with consults to general surgery, nephrology, infectious disease and [facility]. On 01/06/21 the patient underwent an exploratory laparotomy, jejunal colonic anastomosis, and segmental small bowel resection. ABG's (01/07/21): pH 7.345 pH POC ABG pCO2 41.4 mmHg ABG pCO2 40.3 mm Hg POC ABG pO2 94.5 mmHg ABG pO2 67.4 mm Hg POC ABG HCO3 22.7 ABG O2 Saturation 94.3 % Patient sleeping. on room air. O2 saturation 94%. No acute respiratory distr ess. Patient running low grade temp. No leukocytosis. Blood pressure 130/70 Chest x-ray 01/03/21 reported There is decreased inspiration compared to yesterday's exam. Hazy opacity in the right perihilar region and larger area of infiltration in the left lower lung appears stable given differences in the level of inspiration. No large pleural effusion or pneumothorax. Chest xray done 02/14/21 reported Stable cardiomegaly. Lungs clear. Patient presently on s/c heparin, famotidine, cefepime and Micafungin. Recommend to continue incentive spirometry. Start taking liquids. Still on TPN. Objective Vital Signs - 12hr 02/15/21 02/15/21 02/15/21 04:20 05:13 05:15 Temperature 98.8 F Pulse Rate 99 H 99 H 99 H Respiratory 20 Rate Blood Pressure 137/72 137/72 137/72 O2 Sat by Pulse 93 Oximetry 02/15/21 02/15/21 02/15/21 09:30 09:45 10:00 Temperature 99.5 F Pulse Rate 84 84 86 Respiratory 16 Rate Blood Pressure 150/91 150/91 137/75 O2 Sat by Pulse Oximetry 02/15/21 02/15/21 02/15/21 10:15 10:30 10:45 Temperature Pulse Rate 87 92 H 90 Respiratory Rate Blood Pressure 142/70 137/73 123/68 O2 Sat by Pulse Oximetry 02/15/21 02/15/21 02/15/21 11:00 11:15 11:30 Temperature Pulse Rate 77 89 75 Respiratory Rate Blood Pressure 133/71 143/75 126/66 O2 Sat by Pulse Oximetry 02/15/21 02/15/21 02/15/21 11:45 12:00 12:15 Temperature Pulse Rate 70 79 81 Respiratory Rate Blood Pressure 130/69 128/51 127/73 O2 Sat by Pulse Oximetry 02/15/21 02/15/21 02/15/21 12:30 12:45 13:00 Temperature Pulse Rate 60 68 65 Respiratory Rate Blood Pressure 122/64 138/68 135/66 O2 Sat by Pulse Oximetry 02/15/21 02/15/21 02/15/21 13:15 13:30 13:45 Temperature Pulse Rate 79 81 80 Respiratory Rate Blood Pressure 139/67 139/70 130/70 O2 Sat by Pulse Oximetry 02/15/21 14:00 Temperature 98.9 F Pulse Rate 81 Respiratory 16 Rate Blood Pressure 137/79 O2 Sat by Pulse Oximetry Constitutional: no acute distress, alert, other (00) Eyes: non-icteric ENT: oropharynx moist Neck: supple, no lymphadenopathy, no JVD Effort: normal Ascultation: Bilateral: diminished breath sounds, rales, rhonchi Percussion: Bilateral: not dull Cardiovascular: regular rate and rhythm, other (S1,S2) Gastrointestinal: hypoactive bowel sounds, soft, non-tender, non-distended (protuberant), other (Midline abdominal incision; + PEG) Integumentary: other (Midline abdominal incision ) Extremities: no cyanosis, no edema, pulses normal, no ischemia or petechiae Neurologic: non-focal exam (grossly), pupils equal and round, CN II-XII normal Psychiatric: mood appropriate, affect normal CBC and BMP: 02/16/21 05:24 02/16/21 05:24 ABG, PT/INR, D-dimer: ABG ABG pH 7.345 pH Units (7.350-7.450) L 01/07/21 17:14 POC ABG pCO2 41.4 mmHg (32.0-48.0) 01/07/21 03:07 ABG pCO2 40.3 mm Hg 01/07/21 17:14 POC ABG pO2 94.5 mmHg (83-108) 01/07/21 03:07 ABG pO2 67.4 mm Hg (80.0-90.0) L 01/07/21 17:14 POC ABG HCO3 22.7 01/07/21 03:07 ABG O2 Saturation 94.3 % (95.0-99.0) L 01/07/21 17:14 PT/INR, D-dimer PT 16.9 Sec. (12.2-14.9) H 01/01/21 12:45 INR 1.39 (0.87-1.13) H 01/01/21 12:45 Abnormal lab findings: Abnormal Labs 12/22/20 12/22/20 12/22/20 14:38 14:38 14:38 WBC RBC Hgb 11.2 L Hct 35.0 L MCV MCHC RDW 16.7 H Plt Count Lymph % (Auto) [place] % (Auto) Eos % (Auto) Lymph # (Auto) [place] # (Auto) Eos # (Auto) Seg Neutrophils % Seg Neuts % (Manual) 94.0 H Lymphocytes % (Manual) 5.0 L Monocytes % (Manual) Seg Neutrophils # Seg Neutrophils # Man Lymphocytes # (Manual) 0.3 L Monocytes # (Manual) PT INR ABG pH POC ABG pCO2 POC ABG pO2 ABG pO2 ABG HCO3 ABG O2 Saturation ABG Base Excess ABG Hemoglobin ABG Oxyhemoglobin ABG Sodium ABG Potassium ABG Chloride ABG Glucose Oxyhemoglobin Sodium Potassium Chloride Carbon Dioxide BUN 58 H Creatinine 13.2 H Glucose 113 H POC Glucose Lactic Acid 3.60 H* Calcium Phosphorus Magnesium Total Bilirubin 1.30 H AST ALT Alkaline Phosphatase 155 H Total Protein Albumin Triglycerides Arterial Blood Glucose Arterial Blood Ionized Calcium Digoxin Crossmatch 12/22/20 12/22/20 12/23/20 16:26 17:47 05:22 WBC RBC Hgb Hct MCV MCHC RDW Plt Count Lymph % (Auto) [place] % (Auto) Eos % (Auto) Lymph # (Auto) [place] # (Auto) Eos # (Auto) Seg Neutrophils % Seg Neuts % (Manual) Lymphocytes % (Manual) Monocytes % (Manual) Seg Neutrophils # Seg Neutrophils # Man Lymphocytes # (Manual) Monocytes # (Manual) PT INR ABG pH POC ABG pCO2 POC ABG pO2 ABG pO2 ABG HCO3 ABG O2 Saturation ABG Base Excess ABG Hemoglobin ABG Oxyhemoglobin ABG Sodium ABG Potassium ABG Chloride ABG Glucose Oxyhemoglobin Sodium Potassium Chloride Carbon Dioxide BUN Creatinine Glucose POC Glucose Lactic Acid 2.80 H* 3.10 H* 2.30 H* Calcium Phosphorus Magnesium Total Bilirubin AST ALT Alkaline Phosphatase Total Protein Albumin Triglycerides Arterial Blood Glucose Arterial Blood Ionized Calcium Digoxin Crossmatch 12/23/20 12/23/20 12/23/20 05:22 05:22 06:35 WBC 12.1 H RBC Hgb 11.0 L Hct 33.7 L MCV MCHC RDW 16.9 H Plt Count Lymph % (Auto) [place] % (Auto) Eos % (Auto) Lymph # (Auto) [place] # (Auto) Eos # (Auto) Seg Neutrophils % Seg Neuts % (Manual) 93.0 H Lymphocytes % (Manual) 1.0 L Monocytes % (Manual) Seg Neutrophils # Seg Neutrophils # Man 11.3 H Lymphocytes # (Manual) 0.1 L Monocytes # (Manual) PT INR ABG pH POC ABG pCO2 POC ABG pO2 ABG pO2 ABG HCO3 ABG O2 Saturation ABG Base Excess ABG Hemoglobin ABG Oxyhemoglobin ABG Sodium ABG Potassium ABG Chloride ABG Glucose Oxyhemoglobin Sodium Potassium 5.7 H D Chloride Carbon Dioxide BUN 73 H Creatinine 14.2 H Glucose POC Glucose Lactic Acid 2.30 H* Calcium 7.9 L Phosphorus Magnesium Total Bilirubin 1.40 H AST 119 H ALT 130 H Alkaline Phosphatase 183 H Total Protein 6.1 L Albumin 3.6 L Triglycerides Arterial Blood Glucose Arterial Blood Ionized Calcium Digoxin Crossmatch 12/23/20 12/23/20 12/23/20 11:40 13:53 16:47 WBC RBC Hgb 10.0 L Hct 30.4 L MCV MCHC RDW Plt Count Lymph % (Auto) [place] % (Auto) Eos % (Auto) Lymph # (Auto) [place] # (Auto) Eos # (Auto) Seg Neutrophils % Seg Neuts % (Manual) Lymphocytes % (Manual) Monocytes % (Manual) Seg Neutrophils # Seg Neutrophils # Man Lymphocytes # (Manual) Monocytes # (Manual) PT INR ABG pH POC ABG pCO2 POC ABG pO2 137.5 H ABG pO2 ABG HCO3 ABG O2 Saturation ABG Base Excess ABG Hemoglobin 9.7 L ABG Oxyhemoglobin ABG Sodium 134.1 L ABG Potassium 6.6 H ABG Chloride ABG Glucose 103 H Oxyhemoglobin Sodium Potassium Chloride Carbon Dioxide BUN Creatinine Glucose POC Glucose Lactic Acid Calcium Phosphorus Magnesium Total Bilirubin AST ALT Alkaline Phosphatase Total Protein Albumin Triglycerides Arterial Blood Glucose 103 H Arterial Blood Ionized Calcium 3.8 L Digoxin Crossmatch See Detail 12/23/20 12/23/20 12/24/20 20:35 20:40 01:20 WBC RBC Hgb Hct MCV MCHC RDW Plt Count Lymph % (Auto) [place] % (Auto) Eos % (Auto) Lymph # (Auto) [place] # (Auto) Eos # (Auto) Seg Neutrophils % Seg Neuts % (Manual) Lymphocytes % (Manual) Monocytes % (Manual) Seg Neutrophils # Seg Neutrophils # Man Lymphocytes # (Manual) Monocytes # (Manual) PT INR ABG pH 7.252 L POC ABG pCO2 POC ABG pO2 ABG pO2 50.1 L ABG HCO3 ABG O2 Saturation 81.1 L ABG Base Excess -5.9 L ABG Hemoglobin 12.1 L ABG Oxyhemoglobin ABG Sodium ABG Potassium ABG Chloride ABG Glucose Oxyhemoglobin 78.6 L Sodium 134 L Potassium 6.9 H* D 6.3 H* Chloride Carbon Dioxide 18 L 20 L BUN 87 H 91 H Creatinine 15.3 H 15.3 H Glucose 103 H POC Glucose Lactic Acid Calcium 6.9 L 7.5 L Phosphorus Magnesium Total Bilirubin AST ALT Alkaline Phosphatase Total Protein Albumin Triglycerides Arterial Blood Glucose Arterial Blood Ionized Calcium Digoxin Crossmatch 12/24/20 12/24/20 12/24/20 04:00 10:29 10:29 WBC RBC 3.49 L Hgb 10.5 L Hct 31.2 L MCV MCHC RDW 17.5 H Plt Count 124 L Lymph % (Auto) 3.7 L [place] % (Auto) 9.8 H Eos % (Auto) Lymph # (Auto) 0.2 L [place] # (Auto) Eos # (Auto) Seg Neutrophils % 85.9 H Seg Neuts % (Manual) Lymphocytes % (Manual) Monocytes % (Manual) Seg Neutrophils # Seg Neutrophils # Man Lymphocytes # (Manual) Monocytes # (Manual) PT INR ABG pH POC ABG pCO2 28.1 L POC ABG pO2 ABG pO2 ABG HCO3 ABG O2 Saturation ABG Base Excess ABG Hemoglobin ABG Oxyhemoglobin ABG Sodium 133.9 L ABG Potassium 5.3 H ABG Chloride 108.0 H ABG Glucose Oxyhemoglobin Sodium Potassium 5.6 H Chloride Carbon Dioxide 19 L BUN 99 H Creatinine 16.9 H Glucose 52 L POC Glucose Lactic Acid Calcium 7.6 L Phosphorus Magnesium Total Bilirubin 3.50 H AST 67 H ALT 71 H Alkaline Phosphatase Total Protein 3.5 L D Albumin 2.1 L Triglycerides Arterial Blood Glucose Arterial Blood Ionized Calcium 4.0 L Digoxin Crossmatch 12/25/20 12/25/20 12/25/20 03:33 04:00 04:00 WBC 3.8 L RBC 2.90 L Hgb 8.6 L Hct 25.7 L MCV MCHC RDW 16.7 H Plt Count 113 L Lymph % (Auto) [place] % (Auto) Eos % (Auto) Lymph # (Auto) [place] # (Auto) Eos # (Auto) Seg Neutrophils % Seg Neuts % (Manual) Lymphocytes % (Manual) Monocytes % (Manual) Seg Neutrophils # Seg Neutrophils # Man Lymphocytes # (Manual) Monocytes # (Manual) PT INR ABG pH 7.544 H POC ABG pCO2 28.2 L POC ABG pO2 62.8 L ABG pO2 ABG HCO3 ABG O2 Saturation ABG Base Excess ABG Hemoglobin 9.3 L ABG Oxyhemoglobin 93.0 L ABG Sodium 130.3 L ABG Potassium ABG Chloride ABG Glucose 97 H Oxyhemoglobin Sodium Potassium Chloride Carbon Dioxide BUN 62 H Creatinine 11.4 H Glucose POC Glucose Lactic Acid Calcium 7.7 L Phosphorus 5.00 H Magnesium Total Bilirubin AST ALT Alkaline Phosphatase Total Protein Albumin Triglycerides Arterial Blood Glucose 97 H Arterial Blood Ionized Calcium 3.9 L Digoxin Crossmatch 12/26/20 12/26/20 12/27/20 04:46 Unknown 03:40 WBC 4.1 L RBC 2.61 L Hgb 7.8 L Hct 23.4 L MCV MCHC RDW 17.1 H Plt Count 119 L Lymph % (Auto) 5.3 L [place] % (Auto) 10.6 H Eos % (Auto) Lymph # (Auto) 0.2 L [place] # (Auto) Eos # (Auto) Seg Neutrophils % 78.8 H Seg Neuts % (Manual) Lymphocytes % (Manual) Monocytes % (Manual) Seg Neutrophils # Seg Neutrophils # Man Lymphocytes # (Manual) Monocytes # (Manual) PT INR ABG pH 7.333 L 7.332 L POC ABG pCO2 POC ABG pO2 ABG pO2 ABG HCO3 26.9 H ABG O2 Saturation ABG Base Excess -2.4 L ABG Hemoglobin 6.8 L 7.2 L ABG Oxyhemoglobin ABG Sodium ABG Potassium ABG Chloride ABG Glucose Oxyhemoglobin 93.0 L 93.1 L Sodium Potassium Chloride Carbon Dioxide BUN Creatinine Glucose POC Glucose Lactic Acid Calcium Phosphorus Magnesium Total Bilirubin AST ALT Alkaline Phosphatase Total Protein Albumin Triglycerides Arterial Blood Glucose Arterial Blood Ionized Calcium Digoxin Crossmatch 12/27/20 12/27/20 12/27/20 06:40 06:40 11:22 WBC 4.4 L RBC 2.49 L Hgb 7.4 L Hct 22.4 L MCV MCHC RDW 17.1 H Plt Count 111 L Lymph % (Auto) 6.7 L [place] % (Auto) 12.6 H Eos % (Auto) Lymph # (Auto) 0.3 L [place] # (Auto) Eos # (Auto) Seg Neutrophils % 77.6 H Seg Neuts % (Manual) Lymphocytes % (Manual) Monocytes % (Manual) Seg Neutrophils # Seg Neutrophils # Man Lymphocytes # (Manual) Monocytes # (Manual) PT INR ABG pH POC ABG pCO2 POC ABG pO2 ABG pO2 ABG HCO3 ABG O2 Saturation ABG Base Excess ABG Hemoglobin ABG Oxyhemoglobin ABG Sodium ABG Potassium ABG Chloride ABG Glucose Oxyhemoglobin Sodium Potassium Chloride Carbon Dioxide BUN 64 H Creatinine 9.8 H Glucose 147 H POC Glucose 134 H Lactic Acid Calcium 8.3 L Phosphorus 5.00 H Magnesium Total Bilirubin 3.70 H AST 72 H ALT Alkaline Phosphatase 142 H Total Protein 5.1 L D Albumin 2.9 L Triglycerides Arterial Blood Glucose Arterial Blood Ionized Calcium Digoxin Crossmatch 12/27/20 12/27/20 12/28/20 17:29 23:31 03:09 WBC RBC Hgb Hct MCV MCHC RDW Plt Count Lymph % (Auto) [place] % (Auto) Eos % (Auto) Lymph # (Auto) [place] # (Auto) Eos # (Auto) Seg Neutrophils % Seg Neuts % (Manual) Lymphocytes % (Manual) Monocytes % (Manual) Seg Neutrophils # Seg Neutrophils # Man Lymphocytes # (Manual) Monocytes # (Manual) PT INR ABG pH 7.474 H POC ABG pCO2 POC ABG pO2 ABG pO2 ABG HCO3 ABG O2 Saturation ABG Base Excess ABG Hemoglobin 7.8 L ABG Oxyhemoglobin ABG Sodium ABG Potassium ABG Chloride ABG Glucose Oxyhemoglobin Sodium Potassium Chloride Carbon Dioxide BUN Creatinine Glucose POC Glucose 121 H 131 H Lactic Acid Calcium Phosphorus Magnesium Total Bilirubin AST ALT Alkaline Phosphatase Total Protein Albumin Triglycerides Arterial Blood Glucose Arterial Blood Ionized Calcium Digoxin Crossmatch 12/28/20 12/28/20 12/28/20 05:37 05:40 05:40 WBC 4.3 L RBC 2.40 L Hgb 7.2 L Hct 21.5 L MCV MCHC RDW 17.4 H Plt Count 112 L Lymph % (Auto) 6.5 L [place] % (Auto) 16.7 H Eos % (Auto) Lymph # (Auto) 0.3 L [place] # (Auto) Eos # (Auto) Seg Neutrophils % 71.1 H Seg Neuts % (Manual) Lymphocytes % (Manual) Monocytes % (Manual) Seg Neutrophils # Seg Neutrophils # Man Lymphocytes # (Manual) Monocytes # (Manual) PT INR ABG pH POC ABG pCO2 POC ABG pO2 ABG pO2 ABG HCO3 ABG O2 Saturation ABG Base Excess ABG Hemoglobin ABG Oxyhemoglobin ABG Sodium ABG Potassium ABG Chloride ABG Glucose Oxyhemoglobin Sodium Potassium Chloride Carbon Dioxide BUN 85 H Creatinine 11.5 H Glucose 132 H POC Glucose 121 H Lactic Acid Calcium 8.2 L Phosphorus Magnesium 2.40 H Total Bilirubin 3.80 H AST 70 H ALT Alkaline Phosphatase 176 H Total Protein 5.0 L Albumin 2.9 L Triglycerides Arterial Blood Glucose Arterial Blood Ionized Calcium Digoxin Crossmatch 12/28/20 12/28/20 12/28/20 11:34 15:00 17:35 WBC RBC Hgb Hct MCV MCHC RDW Plt Count Lymph % (Auto) [place] % (Auto) Eos % (Auto) Lymph # (Auto) [place] # (Auto) Eos # (Auto) Seg Neutrophils % Seg Neuts % (Manual) Lymphocytes % (Manual) Monocytes % (Manual) Seg Neutrophils # Seg Neutrophils # Man Lymphocytes # (Manual) Monocytes # (Manual) PT INR ABG pH 7.461 H POC ABG pCO2 POC ABG pO2 72.2 L ABG pO2 ABG HCO3 ABG O2 Saturation ABG Base Excess ABG Hemoglobin 8.2 L ABG Oxyhemoglobin 93.6 L ABG Sodium 134.1 L ABG Potassium 3.2 L ABG Chloride ABG Glucose 135 H Oxyhemoglobin Sodium Potassium Chloride Carbon Dioxide BUN Creatinine Glucose POC Glucose 137 H 144 H Lactic Acid Calcium Phosphorus Magnesium Total Bilirubin AST ALT Alkaline Phosphatase Total Protein Albumin Triglycerides Arterial Blood Glucose 135 H Arterial Blood Ionized Calcium 4.4 L Digoxin Crossmatch 12/28/20 12/28/20 12/29/20 19:44 Unknown 00:21 WBC RBC Hgb Hct MCV MCHC RDW Plt Count Lymph % (Auto) [place] % (Auto) Eos % (Auto) Lymph # (Auto) [place] # (Auto) Eos # (Auto) Seg Neutrophils % Seg Neuts % (Manual) Lymphocytes % (Manual) Monocytes % (Manual) Seg Neutrophils # Seg Neutrophils # Man Lymphocytes # (Manual) Monocytes # (Manual) PT INR ABG pH 7.474 H POC ABG pCO2 POC ABG pO2 ABG pO2 ABG HCO3 ABG O2 Saturation ABG Base Excess ABG Hemoglobin 7.8 L ABG Oxyhemoglobin ABG Sodium 133.2 L ABG Potassium ABG Chloride ABG Glucose 139 H Oxyhemoglobin Sodium 135 L Potassium Chloride 96.6 L Carbon Dioxide BUN 47 H Creatinine 7.4 H Glucose 130 H POC Glucose 142 H Lactic Acid Calcium 8.3 L Phosphorus Magnesium Total Bilirubin AST ALT Alkaline Phosphatase Total Protein Albumin Triglycerides Arterial Blood Glucose 139 H Arterial Blood Ionized Calcium 4.3 L Digoxin Crossmatch 12/29/20 12/29/20 12/29/20 05:16 05:16 05:26 WBC RBC 2.53 L Hgb 7.7 L Hct 22.8 L MCV MCHC RDW 17.0 H Plt Count 130 L Lymph % (Auto) [place] % (Auto) Eos % (Auto) Lymph # (Auto) [place] # (Auto) Eos # (Auto) Seg Neutrophils % Seg Neuts % (Manual) 79.0 H Lymphocytes % (Manual) 9.0 L Monocytes % (Manual) Seg Neutrophils # Seg Neutrophils # Man Lymphocytes # (Manual) 0.6 L Monocytes # (Manual) PT INR ABG pH POC ABG pCO2 POC ABG pO2 ABG pO2 ABG HCO3 ABG O2 Saturation ABG Base Excess ABG Hemoglobin ABG Oxyhemoglobin ABG Sodium ABG Potassium ABG Chloride ABG Glucose Oxyhemoglobin Sodium Potassium 3.4 L Chloride 96.6 L Carbon Dioxide BUN 59 H Creatinine 8.3 H Glucose 127 H POC Glucose 141 H Lactic Acid Calcium 8.2 L Phosphorus Magnesium Total Bilirubin 3.00 H AST 88 H ALT Alkaline Phosphatase 188 H Total Protein 5.1 L Albumin 2.8 L Triglycerides Arterial Blood Glucose Arterial Blood Ionized Calcium Digoxin Crossmatch 12/29/20 12/29/20 12/29/20 11:33 17:29 23:22 WBC RBC Hgb Hct MCV MCHC RDW Plt Count Lymph % (Auto) [place] % (Auto) Eos % (Auto) Lymph # (Auto) [place] # (Auto) Eos # (Auto) Seg Neutrophils % Seg Neuts % (Manual) Lymphocytes % (Manual) Monocytes % (Manual) Seg Neutrophils # Seg Neutrophils # Man Lymphocytes # (Manual) Monocytes # (Manual) PT INR ABG pH POC ABG pCO2 POC ABG pO2 ABG pO2 ABG HCO3 ABG O2 Saturation ABG Base Excess ABG Hemoglobin ABG Oxyhemoglobin ABG Sodium ABG Potassium ABG Chloride ABG Glucose Oxyhemoglobin Sodium Potassium Chloride Carbon Dioxide BUN Creatinine Glucose POC Glucose 144 H 130 H 117 H Lactic Acid Calcium Phosphorus Magnesium Total Bilirubin AST ALT Alkaline Phosphatase Total Protein Albumin Triglycerides Arterial Blood Glucose Arterial Blood Ionized Calcium Digoxin Crossmatch 12/30/20 12/30/20 12/30/20 05:23 08:15 09:00 WBC RBC Hgb Hct MCV MCHC RDW Plt Count Lymph % (Auto) [place] % (Auto) Eos % (Auto) Lymph # (Auto) [place] # (Auto) Eos # (Auto) Seg Neutrophils % Seg Neuts % (Manual) Lymphocytes % (Manual) Monocytes % (Manual) Seg Neutrophils # Seg Neutrophils # Man Lymphocytes # (Manual) Monocytes # (Manual) PT INR ABG pH POC ABG pCO2 POC ABG pO2 ABG pO2 ABG HCO3 ABG O2 Saturation ABG Base Excess ABG Hemoglobin ABG Oxyhemoglobin ABG Sodium ABG Potassium ABG Chloride ABG Glucose Oxyhemoglobin Sodium 135 L Potassium Chloride 95.9 L Carbon Dioxide BUN 85 H Creatinine 10.6 H Glucose 128 H POC Glucose 135 H 127 H Lactic Acid Calcium 8.3 L Phosphorus Magnesium Total Bilirubin 2.40 H AST 85 H ALT Alkaline Phosphatase 216 H Total Protein 5.3 L Albumin 2.6 L Triglycerides 155 H Arterial Blood Glucose Arterial Blood Ionized Calcium Digoxin Crossmatch 12/30/20 12/30/20 12/30/20 09:00 11:53 15:49 WBC RBC 2.61 L Hgb 7.8 L Hct 23.7 L MCV MCHC RDW 17.3 H Plt Count Lymph % (Auto) [place] % (Auto) Eos % (Auto) Lymph # (Auto) [place] # (Auto) Eos # (Auto) Seg Neutrophils % Seg Neuts % (Manual) Lymphocytes % (Manual) Monocytes % (Manual) Seg Neutrophils # Seg Neutrophils # Man Lymphocytes # (Manual) Monocytes # (Manual) PT INR ABG pH POC ABG pCO2 POC ABG pO2 ABG pO2 ABG HCO3 ABG O2 Saturation ABG Base Excess ABG Hemoglobin ABG Oxyhemoglobin ABG Sodium ABG Potassium ABG Chloride ABG Glucose Oxyhemoglobin Sodium Potassium Chloride Carbon Dioxide BUN Creatinine Glucose POC Glucose 155 H 146 H Lactic Acid Calcium Phosphorus Magnesium Total Bilirubin AST ALT Alkaline Phosphatase Total Protein Albumin Triglycerides Arterial Blood Glucose Arterial Blood Ionized Calcium Digoxin Crossmatch 12/30/20 12/30/20 12/31/20 17:53 23:45 03:56 WBC RBC Hgb Hct MCV MCHC RDW Plt Count Lymph % (Auto) [place] % (Auto) Eos % (Auto) Lymph # (Auto) [place] # (Auto) Eos # (Auto) Seg Neutrophils % Seg Neuts % (Manual) Lymphocytes % (Manual) Monocytes % (Manual) Seg Neutrophils # Seg Neutrophils # Man Lymphocytes # (Manual) Monocytes # (Manual) PT INR ABG pH POC ABG pCO2 POC ABG pO2 49.4 L ABG pO2 ABG HCO3 ABG O2 Saturation ABG Base Excess ABG Hemoglobin 10.3 L ABG Oxyhemoglobin 84.2 L ABG Sodium 133.1 L ABG Potassium ABG Chloride ABG Glucose 173 H Oxyhemoglobin Sodium Potassium Chloride Carbon Dioxide BUN Creatinine Glucose POC Glucose 139 H 173 H Lactic Acid Calcium Phosphorus Magnesium Total Bilirubin AST ALT Alkaline Phosphatase Total Protein Albumin Triglycerides Arterial Blood Glucose 173 H Arterial Blood Ionized Calcium Digoxin Crossmatch 12/31/20 12/31/20 12/31/20 05:07 06:51 06:51 WBC 20.3 H RBC 3.32 L Hgb 9.8 L Hct 30.3 L D MCV MCHC RDW 17.3 H Plt Count Lymph % (Auto) [place] % (Auto) Eos % (Auto) Lymph # (Auto) [place] # (Auto) Eos # (Auto) Seg Neutrophils % Seg Neuts % (Manual) 87.0 H Lymphocytes % (Manual) 10.0 L Monocytes % (Manual) Seg Neutrophils # Seg Neutrophils # Man 17.7 H Lymphocytes # (Manual) Monocytes # (Manual) PT INR ABG pH POC ABG pCO2 POC ABG pO2 ABG pO2 ABG HCO3 ABG O2 Saturation ABG Base Excess ABG Hemoglobin ABG Oxyhemoglobin ABG Sodium ABG Potassium ABG Chloride ABG Glucose Oxyhemoglobin Sodium Potassium 5.2 H D Chloride Carbon Dioxide BUN 62 H Creatinine 8.4 H Glucose 116 H POC Glucose 120 H Lactic Acid Calcium Phosphorus Magnesium 1.60 L Total Bilirubin AST ALT Alkaline Phosphatase Total Protein Albumin Triglycerides Arterial Blood Glucose Arterial Blood Ionized Calcium Digoxin Crossmatch 12/31/20 12/31/20 12/31/20 09:38 12:19 12:22 WBC RBC Hgb Hct MCV MCHC RDW Plt Count Lymph % (Auto) [place] % (Auto) Eos % (Auto) Lymph # (Auto) [place] # (Auto) Eos # (Auto) Seg Neutrophils % Seg Neuts % (Manual) Lymphocytes % (Manual) Monocytes % (Manual) Seg Neutrophils # Seg Neutrophils # Man Lymphocytes # (Manual) Monocytes # (Manual) PT INR ABG pH POC ABG pCO2 POC ABG pO2 ABG pO2 354.0 H ABG HCO3 ABG O2 Saturation 99.6 H ABG Base Excess ABG Hemoglobin 9.1 L ABG Oxyhemoglobin ABG Sodium ABG Potassium ABG Chloride ABG Glucose Oxyhemoglobin Sodium Potassium 5.2 H Chloride Carbon Dioxide BUN Creatinine Glucose POC Glucose 132 H Lactic Acid Calcium Phosphorus Magnesium Total Bilirubin AST ALT Alkaline Phosphatase Total Protein Albumin Triglycerides Arterial Blood Glucose Arterial Blood Ionized Calcium Digoxin Crossmatch 12/31/20 01/01/21 01/01/21 23:23 03:03 05:04 WBC RBC Hgb Hct MCV MCHC RDW Plt Count Lymph % (Auto) [place] % (Auto) Eos % (Auto) Lymph # (Auto) [place] # (Auto) Eos # (Auto) Seg Neutrophils % Seg Neuts % (Manual) Lymphocytes % (Manual) Monocytes % (Manual) Seg Neutrophils # Seg Neutrophils # Man Lymphocytes # (Manual) Monocytes # (Manual) PT INR ABG pH POC ABG pCO2 POC ABG pO2 79.6 L ABG pO2 ABG HCO3 ABG O2 Saturation ABG Base Excess ABG Hemoglobin 9.2 L ABG Oxyhemoglobin ABG Sodium 131.6 L ABG Potassium 5.8 H ABG Chloride ABG Glucose 177 H Oxyhemoglobin Sodium Potassium Chloride Carbon Dioxide BUN Creatinine Glucose POC Glucose 174 H 167 H Lactic Acid Calcium Phosphorus Magnesium Total Bilirubin AST ALT Alkaline Phosphatase Total Protein Albumin Triglycerides Arterial Blood Glucose 177 H Arterial Blood Ionized Calcium Digoxin Crossmatch 01/01/21 01/01/21 01/01/21 07:31 07:31 11:31 WBC 26.1 H RBC 2.95 L Hgb 8.6 L Hct 27.1 L MCV MCHC RDW 18.2 H Plt Count Lymph % (Auto) [place] % (Auto) Eos % (Auto) Lymph # (Auto) [place] # (Auto) Eos # (Auto) Seg Neutrophils % Seg Neuts % (Manual) 96.0 H Lymphocytes % (Manual) 4.0 L Monocytes % (Manual) Seg Neutrophils # Seg Neutrophils # Man 25.1 H Lymphocytes # (Manual) 1.0 L Monocytes # (Manual) PT INR ABG pH POC ABG pCO2 POC ABG pO2 ABG pO2 ABG HCO3 ABG O2 Saturation ABG Base Excess ABG Hemoglobin ABG Oxyhemoglobin ABG Sodium ABG Potassium ABG Chloride ABG Glucose Oxyhemoglobin Sodium Potassium 6.0 H Chloride Carbon Dioxide 21 L BUN 89 H Creatinine 10.5 H Glucose 179 H POC Glucose Lactic Acid Calcium Phosphorus Magnesium Total Bilirubin AST ALT Alkaline Phosphatase Total Protein Albumin Triglycerides Arterial Blood Glucose Arterial Blood Ionized Calcium Digoxin Crossmatch See Detail 01/01/21 01/01/21 01/01/21 11:51 12:45 16:52 WBC RBC Hgb Hct MCV MCHC RDW Plt Count Lymph % (Auto) [place] % (Auto) Eos % (Auto) Lymph # (Auto) [place] # (Auto) Eos # (Auto) Seg Neutrophils % Seg Neuts % (Manual) Lymphocytes % (Manual) Monocytes % (Manual) Seg Neutrophils # Seg Neutrophils # Man Lymphocytes # (Manual) Monocytes # (Manual) PT 16.9 H INR 1.39 H ABG pH POC ABG pCO2 POC ABG pO2 ABG pO2 ABG HCO3 ABG O2 Saturation ABG Base Excess ABG Hemoglobin ABG Oxyhemoglobin ABG Sodium ABG Potassium ABG Chloride ABG Glucose Oxyhemoglobin Sodium Potassium Chloride Carbon Dioxide BUN Creatinine Glucose POC Glucose 157 H 177 H Lactic Acid Calcium Phosphorus Magnesium Total Bilirubin AST ALT Alkaline Phosphatase Total Protein Albumin Triglycerides Arterial Blood Glucose Arterial Blood Ionized Calcium Digoxin Crossmatch 01/01/21 01/01/21 01/01/21 17:58 17:58 20:12 WBC 26.9 H RBC 3.14 L Hgb 9.3 L Hct 29.6 L MCV MCHC RDW 17.5 H Plt Count Lymph % (Auto) [place] % (Auto) Eos % (Auto) Lymph # (Auto) [place] # (Auto) Eos # (Auto) Seg Neutrophils % Seg Neuts % (Manual) 84.0 H Lymphocytes % (Manual) 4.0 L Monocytes % (Manual) 12.0 H Seg Neutrophils # Seg Neutrophils # Man 22.6 H Lymphocytes # (Manual) 1.1 L Monocytes # (Manual) 3.2 H PT INR ABG pH POC ABG pCO2 POC ABG pO2 ABG pO2 ABG HCO3 ABG O2 Saturation ABG Base Excess ABG Hemoglobin ABG Oxyhemoglobin ABG Sodium ABG Potassium ABG Chloride ABG Glucose Oxyhemoglobin Sodium 136 L Potassium 6.2 H* Chloride Carbon Dioxide 21 L BUN 92 H Creatinine 10.8 H Glucose 171 H POC Glucose 288 H Lactic Acid Calcium Phosphorus Magnesium Total Bilirubin 2.10 H AST 223 H ALT 100 H Alkaline Phosphatase 206 H Total Protein 4.8 L Albumin 1.9 L Triglycerides Arterial Blood Glucose Arterial Blood Ionized Calcium Digoxin Crossmatch 01/02/21 01/02/21 01/02/21 00:12 00:45 03:05 WBC RBC Hgb Hct MCV MCHC RDW Plt Count Lymph % (Auto) [place] % (Auto) Eos % (Auto) Lymph # (Auto) [place] # (Auto) Eos # (Auto) Seg Neutrophils % Seg Neuts % (Manual) Lymphocytes % (Manual) Monocytes % (Manual) Seg Neutrophils # Seg Neutrophils # Man Lymphocytes # (Manual) Monocytes # (Manual) PT INR ABG pH POC ABG pCO2 POC ABG pO2 81.8 L ABG pO2 ABG HCO3 ABG O2 Saturation ABG Base Excess ABG Hemoglobin 8.0 L ABG Oxyhemoglobin ABG Sodium 129.8 L ABG Potassium 5.4 H ABG Chloride ABG Glucose 257 H Oxyhemoglobin Sodium 136 L Potassium 5.8 H Chloride 96.6 L Carbon Dioxide BUN 95 H Creatinine 11.2 H Glucose 238 H POC Glucose 223 H Lactic Acid Calcium Phosphorus Magnesium Total Bilirubin AST ALT Alkaline Phosphatase Total Protein Albumin Triglycerides Arterial Blood Glucose 257 H Arterial Blood Ionized Calcium 4.0 L Digoxin Crossmatch 01/02/21 01/02/21 01/02/21 06:25 08:00 08:00 WBC 17.5 H RBC 2.31 L Hgb 6.7 L Hct 22.1 L D MCV 96 H MCHC 30 L RDW 18.4 H Plt Count Lymph % (Auto) [place] % (Auto) Eos % (Auto) Lymph # (Auto) [place] # (Auto) Eos # (Auto) Seg Neutrophils % Seg Neuts % (Manual) Lymphocytes % (Manual) Monocytes % (Manual) Seg Neutrophils # Seg Neutrophils # Man Lymphocytes # (Manual) Monocytes # (Manual) PT INR ABG pH POC ABG pCO2 POC ABG pO2 ABG pO2 ABG HCO3 ABG O2 Saturation ABG Base Excess ABG Hemoglobin ABG Oxyhemoglobin ABG Sodium ABG Potassium ABG Chloride ABG Glucose Oxyhemoglobin Sodium 134 L Potassium 5.3 H Chloride 92.9 L Carbon Dioxide BUN 101 H Creatinine 10.9 H Glucose 560 H* POC Glucose 239 H Lactic Acid Calcium 7.6 L Phosphorus 6.50 H Magnesium Total Bilirubin AST ALT Alkaline Phosphatase Total Protein Albumin Triglycerides Arterial Blood Glucose Arterial Blood Ionized Calcium Digoxin Crossmatch 01/02/21 01/02/21 01/02/21 11:26 15:00 17:57 WBC RBC Hgb Hct MCV MCHC RDW Plt Count Lymph % (Auto) [place] % (Auto) Eos % (Auto) Lymph # (Auto) [place] # (Auto) Eos # (Auto) Seg Neutrophils % Seg Neuts % (Manual) Lymphocytes % (Manual) Monocytes % (Manual) Seg Neutrophils # Seg Neutrophils # Man Lymphocytes # (Manual) Monocytes # (Manual) PT INR ABG pH POC ABG pCO2 POC ABG pO2 ABG pO2 ABG HCO3 ABG O2 Saturation ABG Base Excess ABG Hemoglobin ABG Oxyhemoglobin ABG Sodium ABG Potassium ABG Chloride ABG Glucose Oxyhemoglobin Sodium Potassium Chloride Carbon Dioxide BUN Creatinine Glucose 241 H POC Glucose 205 H 272 H Lactic Acid Calcium Phosphorus Magnesium Total Bilirubin AST ALT Alkaline Phosphatase Total Protein Albumin Triglycerides Arterial Blood Glucose Arterial Blood Ionized Calcium Digoxin Crossmatch 01/02/21 01/02/21 01/03/21 23:25 23:43 03:45 WBC RBC Hgb Hct MCV MCHC RDW Plt Count Lymph % (Auto) [place] % (Auto) Eos % (Auto) Lymph # (Auto) [place] # (Auto) Eos # (Auto) Seg Neutrophils % Seg Neuts % (Manual) Lymphocytes % (Manual) Monocytes % (Manual) Seg Neutrophils # Seg Neutrophils # Man Lymphocytes # (Manual) Monocytes # (Manual) PT INR ABG pH POC ABG pCO2 48.3 H POC ABG pO2 134.4 H 79.7 L ABG pO2 ABG HCO3 ABG O2 Saturation ABG Base Excess ABG Hemoglobin 7.7 L 8.6 L ABG Oxyhemoglobin ABG Sodium 131.8 L 130.4 L ABG Potassium ABG Chloride 97.0 L ABG Glucose 218 H 238 H Oxyhemoglobin Sodium Potassium Chloride Carbon Dioxide BUN Creatinine Glucose POC Glucose 218 H Lactic Acid Calcium Phosphorus Magnesium Total Bilirubin AST ALT Alkaline Phosphatase Total Protein Albumin Triglycerides Arterial Blood Glucose 218 H 238 H Arterial Blood Ionized Calcium 4.1 L 4.0 L Digoxin Crossmatch 01/03/21 01/03/21 01/03/21 04:37 04:37 05:39 WBC 15.2 H RBC 2.38 L Hgb 7.3 L Hct 21.6 L MCV MCHC RDW 16.6 H Plt Count Lymph % (Auto) [place] % (Auto) Eos % (Auto) Lymph # (Auto) [place] # (Auto) Eos # (Auto) Seg Neutrophils % Seg Neuts % (Manual) Lymphocytes % (Manual) Monocytes % (Manual) Seg Neutrophils # Seg Neutrophils # Man Lymphocytes # (Manual) Monocytes # (Manual) PT INR ABG pH POC ABG pCO2 POC ABG pO2 ABG pO2 ABG HCO3 ABG O2 Saturation ABG Base Excess ABG Hemoglobin ABG Oxyhemoglobin ABG Sodium ABG Potassium ABG Chloride ABG Glucose Oxyhemoglobin Sodium 136 L Potassium Chloride 94.5 L Carbon Dioxide BUN 69 H Creatinine 8.0 H Glucose 219 H POC Glucose 222 H Lactic Acid Calcium 7.8 L Phosphorus 4.80 H D Magnesium Total Bilirubin AST ALT Alkaline Phosphatase Total Protein Albumin Triglycerides Arterial Blood Glucose Arterial Blood Ionized Calcium Digoxin Crossmatch 01/03/21 01/03/21 01/03/21 11:29 18:49 23:37 WBC RBC Hgb Hct MCV MCHC RDW Plt Count Lymph % (Auto) [place] % (Auto) Eos % (Auto) Lymph # (Auto) [place] # (Auto) Eos # (Auto) Seg Neutrophils % Seg Neuts % (Manual) Lymphocytes % (Manual) Monocytes % (Manual) Seg Neutrophils # Seg Neutrophils # Man Lymphocytes # (Manual) Monocytes # (Manual) PT INR ABG pH POC ABG pCO2 POC ABG pO2 ABG pO2 ABG HCO3 ABG O2 Saturation ABG Base Excess ABG Hemoglobin ABG Oxyhemoglobin ABG Sodium ABG Potassium ABG Chloride ABG Glucose Oxyhemoglobin Sodium Potassium Chloride Carbon Dioxide BUN Creatinine Glucose POC Glucose 232 H 129 H 140 H Lactic Acid Calcium Phosphorus Magnesium Total Bilirubin AST ALT Alkaline Phosphatase Total Protein Albumin Triglycerides Arterial Blood Glucose Arterial Blood Ionized Calcium Digoxin Crossmatch 01/04/21 01/04/21 01/04/21 03:22 04:38 04:38 WBC 11.1 H RBC 2.89 L Hgb 8.9 L Hct 26.2 L MCV MCHC RDW 16.1 H Plt Count Lymph % (Auto) [place] % (Auto) Eos % (Auto) Lymph # (Auto) [place] # (Auto) Eos # (Auto) Seg Neutrophils % Seg Neuts % (Manual) Lymphocytes % (Manual) Monocytes % (Manual) Seg Neutrophils # Seg Neutrophils # Man Lymphocytes # (Manual) Monocytes # (Manual) PT INR ABG pH POC ABG pCO2 POC ABG pO2 82.3 L ABG pO2 ABG HCO3 ABG O2 Saturation ABG Base Excess ABG Hemoglobin 8.9 L ABG Oxyhemoglobin ABG Sodium 130.5 L ABG Potassium ABG Chloride ABG Glucose 124 H Oxyhemoglobin Sodium Potassium Chloride 95.5 L Carbon Dioxide BUN 87 H Creatinine 9.7 H Glucose 118 H POC Glucose Lactic Acid Calcium 7.7 L Phosphorus Magnesium Total Bilirubin AST ALT Alkaline Phosphatase Total Protein Albumin Triglycerides Arterial Blood Glucose 124 H Arterial Blood Ionized Calcium 3.5 L Digoxin Crossmatch 01/04/21 01/04/21 01/04/21 05:39 12:04 18:04 WBC RBC Hgb Hct MCV MCHC RDW Plt Count Lymph % (Auto) [place] % (Auto) Eos % (Auto) Lymph # (Auto) [place] # (Auto) Eos # (Auto) Seg Neutrophils % Seg Neuts % (Manual) Lymphocytes % (Manual) Monocytes % (Manual) Seg Neutrophils # Seg Neutrophils # Man Lymphocytes # (Manual) Monocytes # (Manual) PT INR ABG pH POC ABG pCO2 POC ABG pO2 ABG pO2 ABG HCO3 ABG O2 Saturation ABG Base Excess ABG Hemoglobin ABG Oxyhemoglobin ABG Sodium ABG Potassium ABG Chloride ABG Glucose Oxyhemoglobin Sodium Potassium Chloride Carbon Dioxide BUN Creatinine Glucose POC Glucose 134 H 125 H 131 H Lactic Acid Calcium Phosphorus Magnesium Total Bilirubin AST ALT Alkaline Phosphatase Total Protein Albumin Triglycerides Arterial Blood Glucose Arterial Blood Ionized Calcium Digoxin Crossmatch 01/04/21 01/05/21 01/05/21 23:41 03:23 04:49 WBC RBC Hgb Hct MCV MCHC RDW Plt Count Lymph % (Auto) [place] % (Auto) Eos % (Auto) Lymph # (Auto) [place] # (Auto) Eos # (Auto) Seg Neutrophils % Seg Neuts % (Manual) Lymphocytes % (Manual) Monocytes % (Manual) Seg Neutrophils # Seg Neutrophils # Man Lymphocytes # (Manual) Monocytes # (Manual) PT INR ABG pH POC ABG pCO2 POC ABG pO2 62.8 L ABG pO2 ABG HCO3 ABG O2 Saturation ABG Base Excess ABG Hemoglobin 9.5 L ABG Oxyhemoglobin 92.0 L ABG Sodium 130.1 L ABG Potassium ABG Chloride ABG Glucose 148 H Oxyhemoglobin Sodium Potassium Chloride 96.9 L Carbon Dioxide BUN 57 H Creatinine 6.7 H Glucose 135 H POC Glucose 132 H Lactic Acid Calcium 8.0 L Phosphorus Magnesium Total Bilirubin AST ALT Alkaline Phosphatase Total Protein Albumin Triglycerides Arterial Blood Glucose 148 H Arterial Blood Ionized Calcium 4.1 L Digoxin Crossmatch 01/05/21 01/05/21 01/05/21 05:04 11:48 12:39 WBC RBC 3.03 L Hgb 9.3 L Hct 27.6 L MCV MCHC RDW 16.5 H Plt Count Lymph % (Auto) [place] % (Auto) Eos % (Auto) Lymph # (Auto) [place] # (Auto) Eos # (Auto) Seg Neutrophils % Seg Neuts % (Manual) Lymphocytes % (Manual) Monocytes % (Manual) Seg Neutrophils # Seg Neutrophils # Man Lymphocytes # (Manual) Monocytes # (Manual) PT INR ABG pH POC ABG pCO2 POC ABG pO2 ABG pO2 ABG HCO3 ABG O2 Saturation ABG Base Excess ABG Hemoglobin ABG Oxyhemoglobin ABG Sodium ABG Potassium ABG Chloride ABG Glucose Oxyhemoglobin Sodium Potassium Chloride Carbon Dioxide BUN Creatinine Glucose POC Glucose 147 H 162 H Lactic Acid Calcium Phosphorus Magnesium Total Bilirubin AST ALT Alkaline Phosphatase Total Protein Albumin Triglycerides Arterial Blood Glucose Arterial Blood Ionized Calcium Digoxin Crossmatch 01/05/21 01/05/21 01/06/21 17:50 23:32 04:15 WBC RBC Hgb Hct MCV MCHC RDW Plt Count Lymph % (Auto) [place] % (Auto) Eos % (Auto) Lymph # (Auto) [place] # (Auto) Eos # (Auto) Seg Neutrophils % Seg Neuts % (Manual) Lymphocytes % (Manual) Monocytes % (Manual) Seg Neutrophils # Seg Neutrophils # Man Lymphocytes # (Manual) Monocytes # (Manual) PT INR ABG pH POC ABG pCO2 POC ABG pO2 ABG pO2 191.0 H ABG HCO3 ABG O2 Saturation 99.2 H ABG Base Excess ABG Hemoglobin 9.0 L ABG Oxyhemoglobin ABG Sodium ABG Potassium ABG Chloride ABG Glucose Oxyhemoglobin Sodium Potassium Chloride Carbon Dioxide BUN Creatinine Glucose POC Glucose 155 H 115 H Lactic Acid Calcium Phosphorus Magnesium Total Bilirubin AST ALT Alkaline Phosphatase Total Protein Albumin Triglycerides Arterial Blood Glucose Arterial Blood Ionized Calcium Digoxin Crossmatch 01/06/21 01/06/21 01/06/21 04:45 05:56 07:03 WBC RBC 2.95 L Hgb 9.1 L Hct 26.8 L MCV MCHC RDW 16.8 H Plt Count Lymph % (Auto) [place] % (Auto) Eos % (Auto) Lymph # (Auto) [place] # (Auto) Eos # (Auto) Seg Neutrophils % Seg Neuts % (Manual) Lymphocytes % (Manual) Monocytes % (Manual) Seg Neutrophils # Seg Neutrophils # Man Lymphocytes # (Manual) Monocytes # (Manual) PT INR ABG pH POC ABG pCO2 POC ABG pO2 ABG pO2 ABG HCO3 ABG O2 Saturation ABG Base Excess ABG Hemoglobin ABG Oxyhemoglobin ABG Sodium ABG Potassium ABG Chloride ABG Glucose Oxyhemoglobin Sodium 135 L Potassium Chloride 95.9 L Carbon Dioxide BUN 82 H Creatinine 8.7 H Glucose 127 H POC Glucose 136 H Lactic Acid Calcium 8.3 L Phosphorus Magnesium Total Bilirubin AST ALT Alkaline Phosphatase Total Protein Albumin Triglycerides Arterial Blood Glucose Arterial Blood Ionized Calcium Digoxin Crossmatch 01/06/21 01/06/21 01/06/21 07:10 11:04 13:38 WBC RBC Hgb Hct MCV MCHC RDW Plt Count Lymph % (Auto) [place] % (Auto) Eos % (Auto) Lymph # (Auto) [place] # (Auto) Eos # (Auto) Seg Neutrophils % Seg Neuts % (Manual) Lymphocytes % (Manual) Monocytes % (Manual) Seg Neutrophils # Seg Neutrophils # Man Lymphocytes # (Manual) Monocytes # (Manual) PT INR ABG pH POC ABG pCO2 POC ABG pO2 ABG pO2 ABG HCO3 ABG O2 Saturation ABG Base Excess ABG Hemoglobin ABG Oxyhemoglobin ABG Sodium ABG Potassium ABG Chloride ABG Glucose Oxyhemoglobin Sodium Potassium Chloride Carbon Dioxide BUN Creatinine Glucose POC Glucose 178 H 155 H Lactic Acid Calcium Phosphorus Magnesium Total Bilirubin AST ALT Alkaline Phosphatase Total Protein Albumin Triglycerides Arterial Blood Glucose Arterial Blood Ionized Calcium Digoxin Crossmatch See Detail 01/06/21 01/06/21 01/07/21 17:35 22:21 03:07 WBC RBC Hgb Hct MCV MCHC RDW Plt Count Lymph % (Auto) [place] % (Auto) Eos % (Auto) Lymph # (Auto) [place] # (Auto) Eos # (Auto) Seg Neutrophils % Seg Neuts % (Manual) Lymphocytes % (Manual) Monocytes % (Manual) Seg Neutrophils # Seg Neutrophils # Man Lymphocytes # (Manual) Monocytes # (Manual) PT INR ABG pH POC ABG pCO2 POC ABG pO2 ABG pO2 ABG HCO3 ABG O2 Saturation ABG Base Excess ABG Hemoglobin 11.9 L ABG Oxyhemoglobin ABG Sodium 135.6 L ABG Potassium ABG Chloride ABG Glucose 181 H Oxyhemoglobin Sodium Potassium Chloride Carbon Dioxide BUN Creatinine Glucose POC Glucose 138 H 202 H Lactic Acid Calcium Phosphorus Magnesium Total Bilirubin AST ALT Alkaline Phosphatase Total Protein Albumin Triglycerides Arterial Blood Glucose 181 H Arterial Blood Ionized Calcium 4.3 L Digoxin Crossmatch 01/07/21 01/07/21 01/07/21 04:50 05:21 08:37 WBC 12.4 H RBC Hgb 11.1 L Hct 33.3 L D MCV MCHC RDW 17.0 H Plt Count Lymph % (Auto) 3.2 L [place] % (Auto) 9.4 H Eos % (Auto) Lymph # (Auto) 0.4 L [place] # (Auto) 1.2 H Eos # (Auto) Seg Neutrophils % 86.6 H Seg Neuts % (Manual) Lymphocytes % (Manual) Monocytes % (Manual) Seg Neutrophils # 10.7 H Seg Neutrophils # Man Lymphocytes # (Manual) Monocytes # (Manual) PT INR ABG pH POC ABG pCO2 POC ABG pO2 ABG pO2 ABG HCO3 ABG O2 Saturation ABG Base Excess ABG Hemoglobin ABG Oxyhemoglobin ABG Sodium ABG Potassium ABG Chloride ABG Glucose Oxyhemoglobin Sodium Potassium Chloride Carbon Dioxide BUN 60 H Creatinine 6.3 H Glucose 154 H POC Glucose 177 H Lactic Acid Calcium 8.3 L Phosphorus Magnesium Total Bilirubin AST ALT Alkaline Phosphatase Total Protein Albumin Triglycerides Arterial Blood Glucose Arterial Blood Ionized Calcium Digoxin Crossmatch 01/07/21 01/07/21 01/07/21 11:21 12:19 17:11 WBC RBC Hgb Hct MCV MCHC RDW Plt Count Lymph % (Auto) [place] % (Auto) Eos % (Auto) Lymph # (Auto) [place] # (Auto) Eos # (Auto) Seg Neutrophils % Seg Neuts % (Manual) Lymphocytes % (Manual) Monocytes % (Manual) Seg Neutrophils # Seg Neutrophils # Man Lymphocytes # (Manual) Monocytes # (Manual) PT INR ABG pH POC ABG pCO2 POC ABG pO2 ABG pO2 ABG HCO3 ABG O2 Saturation ABG Base Excess ABG Hemoglobin ABG Oxyhemoglobin ABG Sodium ABG Potassium ABG Chloride ABG Glucose Oxyhemoglobin Sodium Potassium Chloride Carbon Dioxide BUN Creatinine Glucose POC Glucose 144 H 137 H 119 H Lactic Acid Calcium Phosphorus Magnesium Total Bilirubin AST ALT Alkaline Phosphatase Total Protein Albumin Triglycerides Arterial Blood Glucose Arterial Blood Ionized Calcium Digoxin Crossmatch 01/07/21 01/07/21 01/08/21 17:14 23:39 04:34 WBC RBC Hgb Hct MCV MCHC RDW Plt Count Lymph % (Auto) [place] % (Auto) Eos % (Auto) Lymph # (Auto) [place] # (Auto) Eos # (Auto) Seg Neutrophils % Seg Neuts % (Manual) Lymphocytes % (Manual) Monocytes % (Manual) Seg Neutrophils # Seg Neutrophils # Man Lymphocytes # (Manual) Monocytes # (Manual) PT INR ABG pH 7.345 L POC ABG pCO2 POC ABG pO2 ABG pO2 67.4 L ABG HCO3 ABG O2 Saturation 94.3 L ABG Base Excess -3.9 L ABG Hemoglobin 8.9 L ABG Oxyhemoglobin ABG Sodium ABG Potassium ABG Chloride ABG Glucose Oxyhemoglobin 92.3 L Sodium Potassium Chloride Carbon Dioxide 20 L BUN 93 H Creatinine 8.8 H Glucose 120 H POC Glucose 129 H Lactic Acid Calcium Phosphorus Magnesium Total Bilirubin AST ALT Alkaline Phosphatase 133 H Total Protein 5.4 L Albumin 1.9 L Triglycerides Arterial Blood Glucose Arterial Blood Ionized Calcium Digoxin Crossmatch 01/08/21 01/08/21 01/08/21 05:26 11:38 17:19 WBC RBC Hgb Hct MCV MCHC RDW Plt Count Lymph % (Auto) [place] % (Auto) Eos % (Auto) Lymph # (Auto) [place] # (Auto) Eos # (Auto) Seg Neutrophils % Seg Neuts % (Manual) Lymphocytes % (Manual) Monocytes % (Manual) Seg Neutrophils # Seg Neutrophils # Man Lymphocytes # (Manual) Monocytes # (Manual) PT INR ABG pH POC ABG pCO2 POC ABG pO2 ABG pO2 ABG HCO3 ABG O2 Saturation ABG Base Excess ABG Hemoglobin ABG Oxyhemoglobin ABG Sodium ABG Potassium ABG Chloride ABG Glucose Oxyhemoglobin Sodium Potassium Chloride Carbon Dioxide BUN Creatinine Glucose POC Glucose 125 H 146 H 136 H Lactic Acid Calcium Phosphorus Magnesium Total Bilirubin AST ALT Alkaline Phosphatase Total Protein Albumin Triglycerides Arterial Blood Glucose Arterial Blood Ionized Calcium Digoxin Crossmatch 01/08/21 01/09/21 01/09/21 23:52 05:13 05:21 WBC RBC Hgb Hct MCV MCHC RDW Plt Count Lymph % (Auto) [place] % (Auto) Eos % (Auto) Lymph # (Auto) [place] # (Auto) Eos # (Auto) Seg Neutrophils % Seg Neuts % (Manual) Lymphocytes % (Manual) Monocytes % (Manual) Seg Neutrophils # Seg Neutrophils # Man Lymphocytes # (Manual) Monocytes # (Manual) PT INR ABG pH POC ABG pCO2 POC ABG pO2 ABG pO2 ABG HCO3 ABG O2 Saturation ABG Base Excess ABG Hemoglobin ABG Oxyhemoglobin ABG Sodium ABG Potassium ABG Chloride ABG Glucose Oxyhemoglobin Sodium Potassium Chloride Carbon Dioxide 16 L BUN 123 H Creatinine 10.8 H Glucose 145 H POC Glucose 143 H 144 H Lactic Acid Calcium Phosphorus 5.00 H D Magnesium 2.40 H Total Bilirubin AST ALT Alkaline Phosphatase Total Protein Albumin Triglycerides Arterial Blood Glucose Arterial Blood Ionized Calcium Digoxin Crossmatch 01/09/21 01/09/21 01/09/21 12:08 17:20 23:56 WBC RBC Hgb Hct MCV MCHC RDW Plt Count Lymph % (Auto) [place] % (Auto) Eos % (Auto) Lymph # (Auto) [place] # (Auto) Eos # (Auto) Seg Neutrophils % Seg Neuts % (Manual) Lymphocytes % (Manual) Monocytes % (Manual) Seg Neutrophils # Seg Neutrophils # Man Lymphocytes # (Manual) Monocytes # (Manual) PT INR ABG pH POC ABG pCO2 POC ABG pO2 ABG pO2 ABG HCO3 ABG O2 Saturation ABG Base Excess ABG Hemoglobin ABG Oxyhemoglobin ABG Sodium ABG Potassium ABG Chloride ABG Glucose Oxyhemoglobin Sodium Potassium Chloride Carbon Dioxide BUN Creatinine Glucose POC Glucose 153 H 160 H 158 H Lactic Acid Calcium Phosphorus Magnesium Total Bilirubin AST ALT Alkaline Phosphatase Total Protein Albumin Triglycerides Arterial Blood Glucose Arterial Blood Ionized Calcium Digoxin Crossmatch 01/10/21 01/10/21 01/10/21 04:52 05:44 07:41 WBC RBC Hgb Hct MCV MCHC RDW Plt Count Lymph % (Auto) [place] % (Auto) Eos % (Auto) Lymph # (Auto) [place] # (Auto) Eos # (Auto) Seg Neutrophils % Seg Neuts % (Manual) Lymphocytes % (Manual) Monocytes % (Manual) Seg Neutrophils # Seg Neutrophils # Man Lymphocytes # (Manual) Monocytes # (Manual) PT INR ABG pH POC ABG pCO2 POC ABG pO2 ABG pO2 ABG HCO3 ABG O2 Saturation ABG Base Excess ABG Hemoglobin ABG Oxyhemoglobin ABG Sodium ABG Potassium ABG Chloride ABG Glucose Oxyhemoglobin Sodium 135 L Potassium 3.5 L D Chloride 95.0 L Carbon Dioxide 21 L BUN 93 H Creatinine 8.3 H Glucose 127 H POC Glucose 135 H 157 H Lactic Acid Calcium Phosphorus Magnesium Total Bilirubin AST ALT Alkaline Phosphatase Total Protein Albumin Triglycerides Arterial Blood Glucose Arterial Blood Ionized Calcium Digoxin Crossmatch 01/10/21 01/10/21 01/10/21 09:26 12:03 17:44 WBC 18.2 H RBC 3.14 L Hgb 9.7 L Hct 28.2 L MCV MCHC RDW 16.5 H Plt Count Lymph % (Auto) [place] % (Auto) Eos % (Auto) Lymph # (Auto) [place] # (Auto) Eos # (Auto) Seg Neutrophils % Seg Neuts % (Manual) 95.0 H Lymphocytes % (Manual) 3.0 L Monocytes % (Manual) Seg Neutrophils # Seg Neutrophils # Man 17.3 H Lymphocytes # (Manual) 0.5 L Monocytes # (Manual) PT INR ABG pH POC ABG pCO2 POC ABG pO2 ABG pO2 ABG HCO3 ABG O2 Saturation ABG Base Excess ABG Hemoglobin ABG Oxyhemoglobin ABG Sodium ABG Potassium ABG Chloride ABG Glucose Oxyhemoglobin Sodium Potassium Chloride Carbon Dioxide BUN Creatinine Glucose POC Glucose 163 H 171 H Lactic Acid Calcium Phosphorus Magnesium Total Bilirubin AST ALT Alkaline Phosphatase Total Protein Albumin Triglycerides Arterial Blood Glucose Arterial Blood Ionized Calcium Digoxin Crossmatch 01/10/21 01/11/21 01/11/21 23:50 05:18 05:18 WBC RBC Hgb Hct MCV MCHC RDW Plt Count Lymph % (Auto) [place] % (Auto) Eos % (Auto) Lymph # (Auto) [place] # (Auto) Eos # (Auto) Seg Neutrophils % Seg Neuts % (Manual) Lymphocytes % (Manual) Monocytes % (Manual) Seg Neutrophils # Seg Neutrophils # Man Lymphocytes # (Manual) Monocytes # (Manual) PT INR ABG pH POC ABG pCO2 POC ABG pO2 ABG pO2 ABG HCO3 ABG O2 Saturation ABG Base Excess ABG Hemoglobin ABG Oxyhemoglobin ABG Sodium ABG Potassium ABG Chloride ABG Glucose Oxyhemoglobin Sodium 136 L Potassium Chloride 94.6 L Carbon Dioxide 19 L BUN 145 H Creatinine 10.6 H Glucose 152 H POC Glucose 151 H Lactic Acid Calcium Phosphorus 6.00 H D Magnesium Total Bilirubin AST ALT Alkaline Phosphatase Total Protein Albumin Triglycerides Arterial Blood Glucose Arterial Blood Ionized Calcium Digoxin 0.8 L Crossmatch 01/11/21 01/11/21 01/11/21 05:18 05:19 11:28 WBC 17.4 H RBC 3.34 L Hgb 10.2 L Hct 29.7 L MCV MCHC RDW 15.9 H Plt Count Lymph % (Auto) [place] % (Auto) Eos % (Auto) Lymph # (Auto) [place] # (Auto) Eos # (Auto) Seg Neutrophils % Seg Neuts % (Manual) Lymphocytes % (Manual) Monocytes % (Manual) Seg Neutrophils # Seg Neutrophils # Man Lymphocytes # (Manual) Monocytes # (Manual) PT INR ABG pH POC ABG pCO2 POC ABG pO2 ABG pO2 ABG HCO3 ABG O2 Saturation ABG Base Excess ABG Hemoglobin ABG Oxyhemoglobin ABG Sodium ABG Potassium ABG Chloride ABG Glucose Oxyhemoglobin Sodium Potassium Chloride Carbon Dioxide BUN Creatinine Glucose POC Glucose 149 H 178 H Lactic Acid Calcium Phosphorus Magnesium Total Bilirubin AST ALT Alkaline Phosphatase Total Protein Albumin Triglycerides Arterial Blood Glucose Arterial Blood Ionized Calcium Digoxin Crossmatch 01/11/21 01/11/21 01/12/21 17:31 23:14 05:18 WBC RBC Hgb Hct MCV MCHC RDW Plt Count Lymph % (Auto) [place] % (Auto) Eos % (Auto) Lymph # (Auto) [place] # (Auto) Eos # (Auto) Seg Neutrophils % Seg Neuts % (Manual) Lymphocytes % (Manual) Monocytes % (Manual) Seg Neutrophils # Seg Neutrophils # Man Lymphocytes # (Manual) Monocytes # (Manual) PT INR ABG pH POC ABG pCO2 POC ABG pO2 ABG pO2 ABG HCO3 ABG O2 Saturation ABG Base Excess ABG Hemoglobin ABG Oxyhemoglobin ABG Sodium ABG Potassium ABG Chloride ABG Glucose Oxyhemoglobin Sodium Potassium Chloride Carbon Dioxide BUN Creatinine Glucose POC Glucose 158 H 145 H 148 H Lactic Acid Calcium Phosphorus Magnesium Total Bilirubin AST ALT Alkaline Phosphatase Total Protein Albumin Triglycerides Arterial Blood Glucose Arterial Blood Ionized Calcium Digoxin Crossmatch 01/12/21 01/12/21 01/12/21 06:50 10:45 13:34 WBC RBC Hgb Hct MCV MCHC RDW Plt Count Lymph % (Auto) [place] % (Auto) Eos % (Auto) Lymph # (Auto) [place] # (Auto) Eos # (Auto) Seg Neutrophils % Seg Neuts % (Manual) Lymphocytes % (Manual) Monocytes % (Manual) Seg Neutrophils # Seg Neutrophils # Man Lymphocytes # (Manual) Monocytes # (Manual) PT INR ABG pH POC ABG pCO2 POC ABG pO2 ABG pO2 ABG HCO3 ABG O2 Saturation ABG Base Excess ABG Hemoglobin ABG Oxyhemoglobin ABG Sodium ABG Potassium ABG Chloride ABG Glucose Oxyhemoglobin Sodium Potassium 2.9 L* D Chloride 94.8 L Carbon Dioxide BUN 102 H Creatinine 8.3 H Glucose 139 H POC Glucose 151 H 134 H Lactic Acid Calcium 8.1 L Phosphorus 5.00 H Magnesium Total Bilirubin AST ALT Alkaline Phosphatase Total Protein Albumin Triglycerides Arterial Blood Glucose Arterial Blood Ionized Calcium Digoxin Crossmatch 01/12/21 01/12/21 01/13/21 16:59 23:06 03:45 WBC RBC Hgb Hct MCV MCHC RDW Plt Count Lymph % (Auto) [place] % (Auto) Eos % (Auto) Lymph # (Auto) [place] # (Auto) Eos # (Auto) Seg Neutrophils % Seg Neuts % (Manual) Lymphocytes % (Manual) Monocytes % (Manual) Seg Neutrophils # Seg Neutrophils # Man Lymphocytes # (Manual) Monocytes # (Manual) PT INR ABG pH POC ABG pCO2 POC ABG pO2 ABG pO2 ABG HCO3 ABG O2 Saturation ABG Base Excess ABG Hemoglobin ABG Oxyhemoglobin ABG Sodium ABG Potassium ABG Chloride ABG Glucose Oxyhemoglobin Sodium 136 L Potassium 3.4 L Chloride 92.6 L Carbon Dioxide BUN 134 H Creatinine 10.4 H Glucose 126 H POC Glucose 108 H 135 H Lactic Acid Calcium 8.3 L Phosphorus 5.60 H Magnesium 1.50 L Total Bilirubin AST ALT Alkaline Phosphatase Total Protein Albumin Triglycerides Arterial Blood Glucose Arterial Blood Ionized Calcium Digoxin Crossmatch 01/13/21 01/13/21 01/13/21 03:45 05:55 11:59 WBC 17.6 H RBC 3.33 L Hgb 10.2 L Hct 29.5 L MCV MCHC 35 H RDW 15.5 H Plt Count Lymph % (Auto) 4.4 L [place] % (Auto) 10.3 H Eos % (Auto) Lymph # (Auto) 0.8 L [place] # (Auto) 1.8 H Eos # (Auto) Seg Neutrophils % 84.2 H Seg Neuts % (Manual) Lymphocytes % (Manual) Monocytes % (Manual) Seg Neutrophils # 14.8 H Seg Neutrophils # Man Lymphocytes # (Manual) Monocytes # (Manual) PT INR ABG pH POC ABG pCO2 POC ABG pO2 ABG pO2 ABG HCO3 ABG O2 Saturation ABG Base Excess ABG Hemoglobin ABG Oxyhemoglobin ABG Sodium ABG Potassium ABG Chloride ABG Glucose Oxyhemoglobin Sodium Potassium Chloride Carbon Dioxide BUN Creatinine Glucose POC Glucose 134 H 141 H Lactic Acid Calcium Phosphorus Magnesium Total Bilirubin AST ALT Alkaline Phosphatase Total Protein Albumin Triglycerides Arterial Blood Glucose Arterial Blood Ionized Calcium Digoxin Crossmatch 01/13/21 01/14/21 01/14/21 23:09 05:39 05:57 WBC RBC Hgb Hct MCV MCHC RDW Plt Count Lymph % (Auto) [place] % (Auto) Eos % (Auto) Lymph # (Auto) [place] # (Auto) Eos # (Auto) Seg Neutrophils % Seg Neuts % (Manual) Lymphocytes % (Manual) Monocytes % (Manual) Seg Neutrophils # Seg Neutrophils # Man Lymphocytes # (Manual) Monocytes # (Manual) PT INR ABG pH POC ABG pCO2 POC ABG pO2 ABG pO2 ABG HCO3 ABG O2 Saturation ABG Base Excess ABG Hemoglobin ABG Oxyhemoglobin ABG Sodium ABG Potassium ABG Chloride ABG Glucose Oxyhemoglobin Sodium Potassium Chloride 97.6 L Carbon Dioxide BUN 81 H Creatinine 7.6 H Glucose 193 H POC Glucose 106 H 190 H Lactic Acid Calcium 8.2 L Phosphorus 4.60 H Magnesium Total Bilirubin AST ALT Alkaline Phosphatase Total Protein Albumin Triglycerides Arterial Blood Glucose Arterial Blood Ionized Calcium Digoxin Crossmatch 01/14/21 01/14/21 01/14/21 10:00 16:56 16:59 WBC 17.0 H RBC 3.10 L Hgb 9.6 L Hct 27.4 L MCV MCHC 35 H RDW 15.6 H Plt Count Lymph % (Auto) [place] % (Auto) Eos % (Auto) Lymph # (Auto) [place] # (Auto) Eos # (Auto) Seg Neutrophils % Seg Neuts % (Manual) Lymphocytes % (Manual) Monocytes % (Manual) Seg Neutrophils # Seg Neutrophils # Man Lymphocytes # (Manual) Monocytes # (Manual) PT INR ABG pH POC ABG pCO2 POC ABG pO2 ABG pO2 ABG HCO3 ABG O2 Saturation ABG Base Excess ABG Hemoglobin ABG Oxyhemoglobin ABG Sodium ABG Potassium ABG Chloride ABG Glucose Oxyhemoglobin Sodium Potassium Chloride Carbon Dioxide BUN Creatinine Glucose POC Glucose 37 L 34 L Lactic Acid Calcium Phosphorus Magnesium Total Bilirubin AST ALT Alkaline Phosphatase Total Protein Albumin Triglycerides Arterial Blood Glucose Arterial Blood Ionized Calcium Digoxin Crossmatch 01/14/21 01/14/21 01/14/21 17:02 18:34 23:17 WBC RBC Hgb Hct MCV MCHC RDW Plt Count Lymph % (Auto) [place] % (Auto) Eos % (Auto) Lymph # (Auto) [place] # (Auto) Eos # (Auto) Seg Neutrophils % Seg Neuts % (Manual) Lymphocytes % (Manual) Monocytes % (Manual) Seg Neutrophils # Seg Neutrophils # Man Lymphocytes # (Manual) Monocytes # (Manual) PT INR ABG pH POC ABG pCO2 POC ABG pO2 ABG pO2 ABG HCO3 ABG O2 Saturation ABG Base Excess ABG Hemoglobin ABG Oxyhemoglobin ABG Sodium ABG Potassium ABG Chloride ABG Glucose Oxyhemoglobin Sodium Potassium Chloride Carbon Dioxide BUN Creatinine Glucose POC Glucose 35 L 143 H 53 L Lactic Acid Calcium Phosphorus Magnesium Total Bilirubin AST ALT Alkaline Phosphatase Total Protein Albumin Triglycerides Arterial Blood Glucose Arterial Blood Ionized Calcium Digoxin Crossmatch 01/15/21 01/15/21 01/15/21 00:34 04:00 04:00 WBC 15.9 H RBC 3.02 L Hgb 9.3 L Hct 27.3 L MCV MCHC RDW 15.6 H Plt Count Lymph % (Auto) [place] % (Auto) Eos % (Auto) Lymph # (Auto) [place] # (Auto) Eos # (Auto) Seg Neutrophils % Seg Neuts % (Manual) Lymphocytes % (Manual) Monocytes % (Manual) Seg Neutrophils # Seg Neutrophils # Man Lymphocytes # (Manual) Monocytes # (Manual) PT INR ABG pH POC ABG pCO2 POC ABG pO2 ABG pO2 ABG HCO3 ABG O2 Saturation ABG Base Excess ABG Hemoglobin ABG Oxyhemoglobin ABG Sodium ABG Potassium ABG Chloride ABG Glucose Oxyhemoglobin Sodium 136 L Potassium Chloride 94.3 L Carbon Dioxide BUN 117 H Creatinine 9.9 H Glucose 217 H POC Glucose 181 H Lactic Acid Calcium 8.3 L Phosphorus Magnesium Total Bilirubin AST ALT Alkaline Phosphatase Total Protein Albumin Triglycerides Arterial Blood Glucose Arterial Blood Ionized Calcium Digoxin Crossmatch 01/15/21 01/15/21 01/15/21 05:29 11:51 23:13 WBC RBC Hgb Hct MCV MCHC RDW Plt Count Lymph % (Auto) [place] % (Auto) Eos % (Auto) Lymph # (Auto) [place] # (Auto) Eos # (Auto) Seg Neutrophils % Seg Neuts % (Manual) Lymphocytes % (Manual) Monocytes % (Manual) Seg Neutrophils # Seg Neutrophils # Man Lymphocytes # (Manual) Monocytes # (Manual) PT INR ABG pH POC ABG pCO2 POC ABG pO2 ABG pO2 ABG HCO3 ABG O2 Saturation ABG Base Excess ABG Hemoglobin ABG Oxyhemoglobin ABG Sodium ABG Potassium ABG Chloride ABG Glucose Oxyhemoglobin Sodium Potassium Chloride Carbon Dioxide BUN Creatinine Glucose POC Glucose 221 H 62 L 154 H Lactic Acid Calcium Phosphorus Magnesium Total Bilirubin AST ALT Alkaline Phosphatase Total Protein Albumin Triglycerides Arterial Blood Glucose Arterial Blood Ionized Calcium Digoxin Crossmatch 01/16/21 01/16/21 01/16/21 05:04 06:44 06:44 WBC 14.8 H RBC 2.76 L Hgb 8.2 L Hct 24.8 L MCV MCHC RDW 15.6 H Plt Count Lymph % (Auto) [place] % (Auto) Eos % (Auto) Lymph # (Auto) [place] # (Auto) Eos # (Auto) Seg Neutrophils % Seg Neuts % (Manual) Lymphocytes % (Manual) Monocytes % (Manual) Seg Neutrophils # Seg Neutrophils # Man Lymphocytes # (Manual) Monocytes # (Manual) PT INR ABG pH POC ABG pCO2 POC ABG pO2 ABG pO2 ABG HCO3 ABG O2 Saturation ABG Base Excess ABG Hemoglobin ABG Oxyhemoglobin ABG Sodium ABG Potassium ABG Chloride ABG Glucose Oxyhemoglobin Sodium 133 L Potassium Chloride 92.3 L Carbon Dioxide 20 L BUN 160 H Creatinine 12.1 H Glucose 177 H POC Glucose 168 H Lactic Acid Calcium 8.1 L Phosphorus 5.50 H Magnesium 2.50 H Total Bilirubin AST ALT Alkaline Phosphatase Total Protein Albumin Triglycerides Arterial Blood Glucose Arterial Blood Ionized Calcium Digoxin Crossmatch 01/16/21 01/17/21 01/17/21 23:20 05:14 05:14 WBC 12.7 H RBC 2.75 L Hgb 8.5 L Hct 24.6 L MCV MCHC 35 H RDW 15.4 H Plt Count Lymph % (Auto) [place] % (Auto) Eos % (Auto) Lymph # (Auto) [place] # (Auto) Eos # (Auto) Seg Neutrophils % Seg Neuts % (Manual) Lymphocytes % (Manual) Monocytes % (Manual) Seg Neutrophils # Seg Neutrophils # Man Lymphocytes # (Manual) Monocytes # (Manual) PT INR ABG pH POC ABG pCO2 POC ABG pO2 ABG pO2 ABG HCO3 ABG O2 Saturation ABG Base Excess ABG Hemoglobin ABG Oxyhemoglobin ABG Sodium ABG Potassium ABG Chloride ABG Glucose Oxyhemoglobin Sodium Potassium Chloride 97.9 L Carbon Dioxide BUN 84 H Creatinine 7.8 H Glucose 176 H POC Glucose 153 H Lactic Acid Calcium 8.0 L Phosphorus Magnesium Total Bilirubin AST ALT Alkaline Phosphatase Total Protein Albumin Triglycerides Arterial Blood Glucose Arterial Blood Ionized Calcium Digoxin Crossmatch 01/17/21 01/17/21 01/18/21 05:33 11:58 00:07 WBC RBC Hgb Hct MCV MCHC RDW Plt Count Lymph % (Auto) [place] % (Auto) Eos % (Auto) Lymph # (Auto) [place] # (Auto) Eos # (Auto) Seg Neutrophils % Seg Neuts % (Manual) Lymphocytes % (Manual) Monocytes % (Manual) Seg Neutrophils # Seg Neutrophils # Man Lymphocytes # (Manual) Monocytes # (Manual) PT INR ABG pH POC ABG pCO2 POC ABG pO2 ABG pO2 ABG HCO3 ABG O2 Saturation ABG Base Excess ABG Hemoglobin ABG Oxyhemoglobin ABG Sodium ABG Potassium ABG Chloride ABG Glucose Oxyhemoglobin Sodium Potassium Chloride Carbon Dioxide BUN Creatinine Glucose POC Glucose 162 H 64 L 146 H Lactic Acid Calcium Phosphorus Magnesium Total Bilirubin AST ALT Alkaline Phosphatase Total Protein Albumin Triglycerides Arterial Blood Glucose Arterial Blood Ionized Calcium Digoxin Crossmatch 01/18/21 01/18/21 01/18/21 04:19 04:19 06:15 WBC 15.6 H RBC 3.00 L Hgb 9.2 L Hct 26.8 L MCV MCHC 35 H RDW 15.6 H Plt Count Lymph % (Auto) [place] % (Auto) Eos % (Auto) Lymph # (Auto) [place] # (Auto) Eos # (Auto) Seg Neutrophils % Seg Neuts % (Manual) Lymphocytes % (Manual) Monocytes % (Manual) Seg Neutrophils # Seg Neutrophils # Man Lymphocytes # (Manual) Monocytes # (Manual) PT INR ABG pH POC ABG pCO2 POC ABG pO2 ABG pO2 ABG HCO3 ABG O2 Saturation ABG Base Excess ABG Hemoglobin ABG Oxyhemoglobin ABG Sodium ABG Potassium ABG Chloride ABG Glucose Oxyhemoglobin Sodium Potassium Chloride 96.2 L Carbon Dioxide BUN 117 H Creatinine 10.0 H Glucose 165 H POC Glucose 189 H Lactic Acid Calcium Phosphorus 4.70 H D Magnesium Total Bilirubin AST ALT Alkaline Phosphatase Total Protein Albumin Triglycerides Arterial Blood Glucose Arterial Blood Ionized Calcium Digoxin Crossmatch 01/18/21 01/18/21 01/18/21 11:53 13:44 15:08 WBC RBC Hgb Hct MCV MCHC RDW Plt Count Lymph % (Auto) [place] % (Auto) Eos % (Auto) Lymph # (Auto) [place] # (Auto) Eos # (Auto) Seg Neutrophils % Seg Neuts % (Manual) Lymphocytes % (Manual) Monocytes % (Manual) Seg Neutrophils # Seg Neutrophils # Man Lymphocytes # (Manual) Monocytes # (Manual) PT INR ABG pH POC ABG pCO2 POC ABG pO2 ABG pO2 ABG HCO3 ABG O2 Saturation ABG Base Excess ABG Hemoglobin ABG Oxyhemoglobin ABG Sodium ABG Potassium ABG Chloride ABG Glucose Oxyhemoglobin Sodium Potassium Chloride Carbon Dioxide BUN Creatinine Glucose POC Glucose 69 L 50 L 56 L Lactic Acid Calcium Phosphorus Magnesium Total Bilirubin AST ALT Alkaline Phosphatase Total Protein Albumin Triglycerides Arterial Blood Glucose Arterial Blood Ionized Calcium Digoxin Crossmatch 01/18/21 01/19/21 01/19/21 17:50 04:55 08:56 WBC 12.7 H RBC 2.89 L Hgb 8.7 L Hct 25.6 L MCV MCHC RDW 15.5 H Plt Count Lymph % (Auto) [place] % (Auto) Eos % (Auto) Lymph # (Auto) [place] # (Auto) Eos # (Auto) Seg Neutrophils % Seg Neuts % (Manual) Lymphocytes % (Manual) Monocytes % (Manual) Seg Neutrophils # Seg Neutrophils # Man Lymphocytes # (Manual) Monocytes # (Manual) PT INR ABG pH POC ABG pCO2 POC ABG pO2 ABG pO2 ABG HCO3 ABG O2 Saturation ABG Base Excess ABG Hemoglobin ABG Oxyhemoglobin ABG Sodium ABG Potassium ABG Chloride ABG Glucose Oxyhemoglobin Sodium Potassium Chloride Carbon Dioxide BUN Creatinine Glucose POC Glucose 137 H 120 H Lactic Acid Calcium Phosphorus Magnesium Total Bilirubin AST ALT Alkaline Phosphatase Total Protein Albumin Triglycerides Arterial Blood Glucose Arterial Blood Ionized Calcium Digoxin Crossmatch 01/19/21 01/19/21 01/19/21 08:56 11:33 17:32 WBC RBC Hgb Hct MCV MCHC RDW Plt Count Lymph % (Auto) [place] % (Auto) Eos % (Auto) Lymph # (Auto) [place] # (Auto) Eos # (Auto) Seg Neutrophils % Seg Neuts % (Manual) Lymphocytes % (Manual) Monocytes % (Manual) Seg Neutrophils # Seg Neutrophils # Man Lymphocytes # (Manual) Monocytes # (Manual) PT INR ABG pH POC ABG pCO2 POC ABG pO2 ABG pO2 ABG HCO3 ABG O2 Saturation ABG Base Excess ABG Hemoglobin ABG Oxyhemoglobin ABG Sodium ABG Potassium ABG Chloride ABG Glucose Oxyhemoglobin Sodium Potassium Chloride Carbon Dioxide BUN 66 H Creatinine 7.7 H Glucose 119 H POC Glucose 160 H 125 H Lactic Acid Calcium 8.3 L Phosphorus Magnesium Total Bilirubin AST ALT Alkaline Phosphatase Total Protein Albumin Triglycerides Arterial Blood Glucose Arterial Blood Ionized Calcium Digoxin Crossmatch 01/19/21 01/20/21 01/20/21 23:30 03:35 03:35 WBC 12.0 H RBC 2.62 L Hgb 8.3 L Hct 23.2 L MCV MCHC 36 H RDW Plt Count Lymph % (Auto) [place] % (Auto) Eos % (Auto) Lymph # (Auto) [place] # (Auto) Eos # (Auto) Seg Neutrophils % Seg Neuts % (Manual) Lymphocytes % (Manual) Monocytes % (Manual) Seg Neutrophils # Seg Neutrophils # Man Lymphocytes # (Manual) Monocytes # (Manual) PT INR ABG pH POC ABG pCO2 POC ABG pO2 ABG pO2 ABG HCO3 ABG O2 Saturation ABG Base Excess ABG Hemoglobin ABG Oxyhemoglobin ABG Sodium ABG Potassium ABG Chloride ABG Glucose Oxyhemoglobin Sodium Potassium Chloride Carbon Dioxide BUN 46 H Creatinine 5.9 H Glucose 128 H POC Glucose 127 H Lactic Acid Calcium Phosphorus Magnesium Total Bilirubin AST ALT Alkaline Phosphatase Total Protein Albumin Triglycerides Arterial Blood Glucose Arterial Blood Ionized Calcium Digoxin Crossmatch 01/20/21 01/20/21 01/20/21 06:19 11:55 18:00 WBC RBC Hgb Hct MCV MCHC RDW Plt Count Lymph % (Auto) [place] % (Auto) Eos % (Auto) Lymph # (Auto) [place] # (Auto) Eos # (Auto) Seg Neutrophils % Seg Neuts % (Manual) Lymphocytes % (Manual) Monocytes % (Manual) Seg Neutrophils # Seg Neutrophils # Man Lymphocytes # (Manual) Monocytes # (Manual) PT INR ABG pH POC ABG pCO2 POC ABG pO2 ABG pO2 ABG HCO3 ABG O2 Saturation ABG Base Excess ABG Hemoglobin ABG Oxyhemoglobin ABG Sodium ABG Potassium ABG Chloride ABG Glucose Oxyhemoglobin Sodium Potassium Chloride Carbon Dioxide BUN Creatinine Glucose POC Glucose 119 H 128 H 115 H Lactic Acid Calcium Phosphorus Magnesium Total Bilirubin AST ALT Alkaline Phosphatase Total Protein Albumin Triglycerides Arterial Blood Glucose Arterial Blood Ionized Calcium Digoxin Crossmatch 01/20/21 01/21/21 01/21/21 23:26 04:39 05:27 WBC RBC Hgb Hct MCV MCHC RDW Plt Count Lymph % (Auto) [place] % (Auto) Eos % (Auto) Lymph # (Auto) [place] # (Auto) Eos # (Auto) Seg Neutrophils % Seg Neuts % (Manual) Lymphocytes % (Manual) Monocytes % (Manual) Seg Neutrophils # Seg Neutrophils # Man Lymphocytes # (Manual) Monocytes # (Manual) PT INR ABG pH POC ABG pCO2 POC ABG pO2 ABG pO2 ABG HCO3 ABG O2 Saturation ABG Base Excess ABG Hemoglobin ABG Oxyhemoglobin ABG Sodium ABG Potassium ABG Chloride ABG Glucose Oxyhemoglobin Sodium Potassium Chloride Carbon Dioxide BUN 37 H Creatinine 5.3 H Glucose 109 H POC Glucose 108 H 107 H Lactic Acid Calcium Phosphorus 2.10 L Magnesium 1.50 L Total Bilirubin AST ALT Alkaline Phosphatase 143 H Total Protein 6.1 L Albumin 3.0 L Triglycerides Arterial Blood Glucose Arterial Blood Ionized Calcium Digoxin Crossmatch 01/21/21 01/21/21 01/22/21 11:35 17:53 00:20 WBC RBC Hgb Hct MCV MCHC RDW Plt Count Lymph % (Auto) [place] % (Auto) Eos % (Auto) Lymph # (Auto) [place] # (Auto) Eos # (Auto) Seg Neutrophils % Seg Neuts % (Manual) Lymphocytes % (Manual) Monocytes % (Manual) Seg Neutrophils # Seg Neutrophils # Man Lymphocytes # (Manual) Monocytes # (Manual) PT INR ABG pH POC ABG pCO2 POC ABG pO2 ABG pO2 ABG HCO3 ABG O2 Saturation ABG Base Excess ABG Hemoglobin ABG Oxyhemoglobin ABG Sodium ABG Potassium ABG Chloride ABG Glucose Oxyhemoglobin Sodium Potassium Chloride Carbon Dioxide BUN Creatinine Glucose POC Glucose 133 H 124 H 122 H Lactic Acid Calcium Phosphorus Magnesium Total Bilirubin AST ALT Alkaline Phosphatase Total Protein Albumin Triglycerides Arterial Blood Glucose Arterial Blood Ionized Calcium Digoxin Crossmatch 01/22/21 01/22/21 01/22/21 04:00 06:09 11:36 WBC RBC Hgb Hct MCV MCHC RDW Plt Count Lymph % (Auto) [place] % (Auto) Eos % (Auto) Lymph # (Auto) [place] # (Auto) Eos # (Auto) Seg Neutrophils % Seg Neuts % (Manual) Lymphocytes % (Manual) Monocytes % (Manual) Seg Neutrophils # Seg Neutrophils # Man Lymphocytes # (Manual) Monocytes # (Manual) PT INR ABG pH POC ABG pCO2 POC ABG pO2 ABG pO2 ABG HCO3 ABG O2 Saturation ABG Base Excess ABG Hemoglobin ABG Oxyhemoglobin ABG Sodium ABG Potassium ABG Chloride ABG Glucose Oxyhemoglobin Sodium Potassium Chloride Carbon Dioxide BUN 65 H Creatinine 8.2 H D Glucose 111 H POC Glucose 122 H 132 H Lactic Acid Calcium Phosphorus Magnesium Total Bilirubin AST ALT Alkaline Phosphatase Total Protein Albumin Triglycerides Arterial Blood Glucose Arterial Blood Ionized Calcium Digoxin Crossmatch 01/22/21 01/22/21 01/23/21 17:17 23:18 05:29 WBC RBC Hgb Hct MCV MCHC RDW Plt Count Lymph % (Auto) [place] % (Auto) Eos % (Auto) Lymph # (Auto) [place] # (Auto) Eos # (Auto) Seg Neutrophils % Seg Neuts % (Manual) Lymphocytes % (Manual) Monocytes % (Manual) Seg Neutrophils # Seg Neutrophils # Man Lymphocytes # (Manual) Monocytes # (Manual) PT INR ABG pH POC ABG pCO2 POC ABG pO2 ABG pO2 ABG HCO3 ABG O2 Saturation ABG Base Excess ABG Hemoglobin ABG Oxyhemoglobin ABG Sodium ABG Potassium ABG Chloride ABG Glucose Oxyhemoglobin Sodium Potassium Chloride Carbon Dioxide BUN Creatinine Glucose POC Glucose 135 H 128 H 129 H Lactic Acid Calcium Phosphorus Magnesium Total Bilirubin AST ALT Alkaline Phosphatase Total Protein Albumin Triglycerides Arterial Blood Glucose Arterial Blood Ionized Calcium Digoxin Crossmatch 01/23/21 01/23/21 01/23/21 05:45 11:28 16:39 WBC RBC Hgb Hct MCV MCHC RDW Plt Count Lymph % (Auto) [place] % (Auto) Eos % (Auto) Lymph # (Auto) [place] # (Auto) Eos # (Auto) Seg Neutrophils % Seg Neuts % (Manual) Lymphocytes % (Manual) Monocytes % (Manual) Seg Neutrophils # Seg Neutrophils # Man Lymphocytes # (Manual) Monocytes # (Manual) PT INR ABG pH POC ABG pCO2 POC ABG pO2 ABG pO2 ABG HCO3 ABG O2 Saturation ABG Base Excess ABG Hemoglobin ABG Oxyhemoglobin ABG Sodium ABG Potassium ABG Chloride ABG Glucose Oxyhemoglobin Sodium Potassium Chloride Carbon Dioxide BUN 96 H Creatinine 10.8 H Glucose 124 H POC Glucose 160 H 116 H Lactic Acid Calcium Phosphorus Magnesium 2.50 H Total Bilirubin AST ALT Alkaline Phosphatase Total Protein Albumin Triglycerides Arterial Blood Glucose Arterial Blood Ionized Calcium Digoxin Crossmatch 01/24/21 01/24/21 01/24/21 00:02 04:45 05:01 WBC RBC Hgb Hct MCV MCHC RDW Plt Count Lymph % (Auto) [place] % (Auto) Eos % (Auto) Lymph # (Auto) [place] # (Auto) Eos # (Auto) Seg Neutrophils % Seg Neuts % (Manual) Lymphocytes % (Manual) Monocytes % (Manual) Seg Neutrophils # Seg Neutrophils # Man Lymphocytes # (Manual) Monocytes # (Manual) PT INR ABG pH POC ABG pCO2 POC ABG pO2 ABG pO2 ABG HCO3 ABG O2 Saturation ABG Base Excess ABG Hemoglobin ABG Oxyhemoglobin ABG Sodium ABG Potassium ABG Chloride ABG Glucose Oxyhemoglobin Sodium Potassium 3.5 L Chloride Carbon Dioxide BUN 56 H Creatinine 7.7 H Glucose 102 H POC Glucose 120 H 108 H Lactic Acid Calcium Phosphorus Magnesium Total Bilirubin AST ALT Alkaline Phosphatase Total Protein Albumin Triglycerides Arterial Blood Glucose Arterial Blood Ionized Calcium Digoxin Crossmatch 01/24/21 01/24/21 01/24/21 12:03 17:07 23:55 WBC RBC Hgb Hct MCV MCHC RDW Plt Count Lymph % (Auto) [place] % (Auto) Eos % (Auto) Lymph # (Auto) [place] # (Auto) Eos # (Auto) Seg Neutrophils % Seg Neuts % (Manual) Lymphocytes % (Manual) Monocytes % (Manual) Seg Neutrophils # Seg Neutrophils # Man Lymphocytes # (Manual) Monocytes # (Manual) PT INR ABG pH POC ABG pCO2 POC ABG pO2 ABG pO2 ABG HCO3 ABG O2 Saturation ABG Base Excess ABG Hemoglobin ABG Oxyhemoglobin ABG Sodium ABG Potassium ABG Chloride ABG Glucose Oxyhemoglobin Sodium Potassium Chloride Carbon Dioxide BUN Creatinine Glucose POC Glucose 136 H 122 H 112 H Lactic Acid Calcium Phosphorus Magnesium Total Bilirubin AST ALT Alkaline Phosphatase Total Protein Albumin Triglycerides Arterial Blood Glucose Arterial Blood Ionized Calcium Digoxin Crossmatch 01/25/21 01/25/21 01/25/21 05:15 06:00 07:47 WBC RBC Hgb Hct MCV MCHC RDW Plt Count Lymph % (Auto) [place] % (Auto) Eos % (Auto) Lymph # (Auto) [place] # (Auto) Eos # (Auto) Seg Neutrophils % Seg Neuts % (Manual) Lymphocytes % (Manual) Monocytes % (Manual) Seg Neutrophils # Seg Neutrophils # Man Lymphocytes # (Manual) Monocytes # (Manual) PT INR ABG pH POC ABG pCO2 POC ABG pO2 ABG pO2 ABG HCO3 ABG O2 Saturation ABG Base Excess ABG Hemoglobin ABG Oxyhemoglobin ABG Sodium ABG Potassium ABG Chloride ABG Glucose Oxyhemoglobin Sodium 116 L* D Potassium Chloride 79.1 L Carbon Dioxide 17 L D BUN 72 H Creatinine 7.4 H Glucose 2242 H* POC Glucose 117 H 138 H Lactic Acid Calcium 6.7 L D Phosphorus Magnesium Total Bilirubin AST ALT Alkaline Phosphatase Total Protein Albumin Triglycerides Arterial Blood Glucose Arterial Blood Ionized Calcium Digoxin Crossmatch 01/25/21 01/25/21 01/25/21 08:35 11:49 18:42 WBC RBC Hgb Hct MCV MCHC RDW Plt Count Lymph % (Auto) [place] % (Auto) Eos % (Auto) Lymph # (Auto) [place] # (Auto) Eos # (Auto) Seg Neutrophils % Seg Neuts % (Manual) Lymphocytes % (Manual) Monocytes % (Manual) Seg Neutrophils # Seg Neutrophils # Man Lymphocytes # (Manual) Monocytes # (Manual) PT INR ABG pH POC ABG pCO2 POC ABG pO2 ABG pO2 ABG HCO3 ABG O2 Saturation ABG Base Excess ABG Hemoglobin ABG Oxyhemoglobin ABG Sodium ABG Potassium ABG Chloride ABG Glucose Oxyhemoglobin Sodium Potassium Chloride 97.0 L Carbon Dioxide BUN 92 H Creatinine 11.0 H Glucose 125 H POC Glucose 130 H 122 H Lactic Acid Calcium Phosphorus Magnesium Total Bilirubin AST ALT Alkaline Phosphatase Total Protein Albumin Triglycerides Arterial Blood Glucose Arterial Blood Ionized Calcium Digoxin Crossmatch 01/25/21 01/26/21 01/26/21 23:37 04:19 05:48 WBC RBC Hgb Hct MCV MCHC RDW Plt Count Lymph % (Auto) [place] % (Auto) Eos % (Auto) Lymph # (Auto) [place] # (Auto) Eos # (Auto) Seg Neutrophils % Seg Neuts % (Manual) Lymphocytes % (Manual) Monocytes % (Manual) Seg Neutrophils # Seg Neutrophils # Man Lymphocytes # (Manual) Monocytes # (Manual) PT INR ABG pH POC ABG pCO2 POC ABG pO2 ABG pO2 ABG HCO3 ABG O2 Saturation ABG Base Excess ABG Hemoglobin ABG Oxyhemoglobin ABG Sodium ABG Potassium ABG Chloride ABG Glucose Oxyhemoglobin Sodium Potassium Chloride Carbon Dioxide BUN 49 H Creatinine 7.1 H Glucose POC Glucose 144 H 125 H Lactic Acid Calcium Phosphorus Magnesium 1.50 L Total Bilirubin AST ALT Alkaline Phosphatase Total Protein Albumin Triglycerides Arterial Blood Glucose Arterial Blood Ionized Calcium Digoxin Crossmatch 01/26/21 01/26/21 01/27/21 11:16 18:35 00:01 WBC RBC Hgb Hct MCV MCHC RDW Plt Count Lymph % (Auto) [place] % (Auto) Eos % (Auto) Lymph # (Auto) [place] # (Auto) Eos # (Auto) Seg Neutrophils % Seg Neuts % (Manual) Lymphocytes % (Manual) Monocytes % (Manual) Seg Neutrophils # Seg Neutrophils # Man Lymphocytes # (Manual) Monocytes # (Manual) PT INR ABG pH POC ABG pCO2 POC ABG pO2 ABG pO2 ABG HCO3 ABG O2 Saturation ABG Base Excess ABG Hemoglobin ABG Oxyhemoglobin ABG Sodium ABG Potassium ABG Chloride ABG Glucose Oxyhemoglobin Sodium Potassium Chloride Carbon Dioxide BUN Creatinine Glucose POC Glucose 122 H 127 H 130 H Lactic Acid Calcium Phosphorus Magnesium Total Bilirubin AST ALT Alkaline Phosphatase Total Protein Albumin Triglycerides Arterial Blood Glucose Arterial Blood Ionized Calcium Digoxin Crossmatch 01/27/21 01/27/21 01/27/21 04:19 04:19 05:25 WBC 12.4 H RBC 2.79 L Hgb 8.6 L Hct 25.1 L MCV MCHC RDW 16.1 H Plt Count Lymph % (Auto) 7.5 L [place] % (Auto) 9.3 H Eos % (Auto) 4.8 H Lymph # (Auto) 0.9 L [place] # (Auto) 1.1 H Eos # (Auto) 0.6 H Seg Neutrophils % 78.0 H Seg Neuts % (Manual) Lymphocytes % (Manual) Monocytes % (Manual) Seg Neutrophils # 9.7 H Seg Neutrophils # Man Lymphocytes # (Manual) Monocytes # (Manual) PT INR ABG pH POC ABG pCO2 POC ABG pO2 ABG pO2 ABG HCO3 ABG O2 Saturation ABG Base Excess ABG Hemoglobin ABG Oxyhemoglobin ABG Sodium ABG Potassium ABG Chloride ABG Glucose Oxyhemoglobin Sodium Potassium Chloride 97.9 L Carbon Dioxide BUN 76 H Creatinine 9.9 H Glucose 111 H POC Glucose 129 H Lactic Acid Calcium Phosphorus Magnesium Total Bilirubin AST ALT Alkaline Phosphatase Total Protein Albumin Triglycerides Arterial Blood Glucose Arterial Blood Ionized Calcium Digoxin Crossmatch 01/27/21 01/27/21 01/27/21 11:30 17:08 23:28 WBC RBC Hgb Hct MCV MCHC RDW Plt Count Lymph % (Auto) [place] % (Auto) Eos % (Auto) Lymph # (Auto) [place] # (Auto) Eos # (Auto) Seg Neutrophils % Seg Neuts % (Manual) Lymphocytes % (Manual) Monocytes % (Manual) Seg Neutrophils # Seg Neutrophils # Man Lymphocytes # (Manual) Monocytes # (Manual) PT INR ABG pH POC ABG pCO2 POC ABG pO2 ABG pO2 ABG HCO3 ABG O2 Saturation ABG Base Excess ABG Hemoglobin ABG Oxyhemoglobin ABG Sodium ABG Potassium ABG Chloride ABG Glucose Oxyhemoglobin Sodium Potassium Chloride Carbon Dioxide BUN Creatinine Glucose POC Glucose 128 H 158 H 114 H Lactic Acid Calcium Phosphorus Magnesium Total Bilirubin AST ALT Alkaline Phosphatase Total Protein Albumin Triglycerides Arterial Blood Glucose Arterial Blood Ionized Calcium Digoxin Crossmatch 01/28/21 01/28/21 01/28/21 05:17 11:27 18:01 WBC RBC Hgb Hct MCV MCHC RDW Plt Count Lymph % (Auto) [place] % (Auto) Eos % (Auto) Lymph # (Auto) [place] # (Auto) Eos # (Auto) Seg Neutrophils % Seg Neuts % (Manual) Lymphocytes % (Manual) Monocytes % (Manual) Seg Neutrophils # Seg Neutrophils # Man Lymphocytes # (Manual) Monocytes # (Manual) PT INR ABG pH POC ABG pCO2 POC ABG pO2 ABG pO2 ABG HCO3 ABG O2 Saturation ABG Base Excess ABG Hemoglobin ABG Oxyhemoglobin ABG Sodium ABG Potassium ABG Chloride ABG Glucose Oxyhemoglobin Sodium Potassium Chloride Carbon Dioxide BUN Creatinine Glucose POC Glucose 113 H 134 H 111 H Lactic Acid Calcium Phosphorus Magnesium Total Bilirubin AST ALT Alkaline Phosphatase Total Protein Albumin Triglycerides Arterial Blood Glucose Arterial Blood Ionized Calcium Digoxin Crossmatch 01/29/21 01/29/21 01/29/21 04:54 06:45 11:10 WBC RBC Hgb Hct MCV MCHC RDW Plt Count Lymph % (Auto) [place] % (Auto) Eos % (Auto) Lymph # (Auto) [place] # (Auto) Eos # (Auto) Seg Neutrophils % Seg Neuts % (Manual) Lymphocytes % (Manual) Monocytes % (Manual) Seg Neutrophils # Seg Neutrophils # Man Lymphocytes # (Manual) Monocytes # (Manual) PT INR ABG pH POC ABG pCO2 POC ABG pO2 ABG pO2 ABG HCO3 ABG O2 Saturation ABG Base Excess ABG Hemoglobin ABG Oxyhemoglobin ABG Sodium ABG Potassium ABG Chloride ABG Glucose Oxyhemoglobin Sodium Potassium 3.4 L Chloride Carbon Dioxide BUN 51 H Creatinine 6.9 H Glucose 120 H POC Glucose 111 H 106 H Lactic Acid Calcium Phosphorus 2.10 L Magnesium Total Bilirubin AST ALT Alkaline Phosphatase 182 H Total Protein 6.0 L Albumin 2.9 L Triglycerides Arterial Blood Glucose Arterial Blood Ionized Calcium Digoxin Crossmatch 01/29/21 01/30/21 01/30/21 16:47 04:15 06:55 WBC RBC Hgb Hct MCV MCHC RDW Plt Count Lymph % (Auto) [place] % (Auto) Eos % (Auto) Lymph # (Auto) [place] # (Auto) Eos # (Auto) Seg Neutrophils % Seg Neuts % (Manual) Lymphocytes % (Manual) Monocytes % (Manual) Seg Neutrophils # Seg Neutrophils # Man Lymphocytes # (Manual) Monocytes # (Manual) PT INR ABG pH POC ABG pCO2 POC ABG pO2 ABG pO2 ABG HCO3 ABG O2 Saturation ABG Base Excess ABG Hemoglobin ABG Oxyhemoglobin ABG Sodium ABG Potassium ABG Chloride ABG Glucose Oxyhemoglobin Sodium Potassium Chloride Carbon Dioxide BUN 73 H Creatinine 9.2 H Glucose 119 H POC Glucose 110 H 126 H Lactic Acid Calcium Phosphorus 4.70 H D Magnesium Total Bilirubin AST ALT Alkaline Phosphatase Total Protein Albumin Triglycerides Arterial Blood Glucose Arterial Blood Ionized Calcium Digoxin Crossmatch 01/30/21 01/31/21 01/31/21 18:25 00:51 07:15 WBC RBC Hgb Hct MCV MCHC RDW Plt Count Lymph % (Auto) [place] % (Auto) Eos % (Auto) Lymph # (Auto) [place] # (Auto) Eos # (Auto) Seg Neutrophils % Seg Neuts % (Manual) Lymphocytes % (Manual) Monocytes % (Manual) Seg Neutrophils # Seg Neutrophils # Man Lymphocytes # (Manual) Monocytes # (Manual) PT INR ABG pH POC ABG pCO2 POC ABG pO2 ABG pO2 ABG HCO3 ABG O2 Saturation ABG Base Excess ABG Hemoglobin ABG Oxyhemoglobin ABG Sodium ABG Potassium ABG Chloride ABG Glucose Oxyhemoglobin Sodium Potassium Chloride Carbon Dioxide BUN Creatinine Glucose POC Glucose 117 H 134 H 134 H Lactic Acid Calcium Phosphorus Magnesium Total Bilirubin AST ALT Alkaline Phosphatase Total Protein Albumin Triglycerides Arterial Blood Glucose Arterial Blood Ionized Calcium Digoxin Crossmatch 01/31/21 01/31/21 02/01/21 11:45 23:15 05:51 WBC RBC Hgb Hct MCV MCHC RDW Plt Count Lymph % (Auto) [place] % (Auto) Eos % (Auto) Lymph # (Auto) [place] # (Auto) Eos # (Auto) Seg Neutrophils % Seg Neuts % (Manual) Lymphocytes % (Manual) Monocytes % (Manual) Seg Neutrophils # Seg Neutrophils # Man Lymphocytes # (Manual) Monocytes # (Manual) PT INR ABG pH POC ABG pCO2 POC ABG pO2 ABG pO2 ABG HCO3 ABG O2 Saturation ABG Base Excess ABG Hemoglobin ABG Oxyhemoglobin ABG Sodium ABG Potassium ABG Chloride ABG Glucose Oxyhemoglobin Sodium Potassium Chloride Carbon Dioxide BUN Creatinine Glucose POC Glucose 119 H 120 H 125 H Lactic Acid Calcium Phosphorus Magnesium Total Bilirubin AST ALT Alkaline Phosphatase Total Protein Albumin Triglycerides Arterial Blood Glucose Arterial Blood Ionized Calcium Digoxin Crossmatch 02/01/21 02/02/21 02/02/21 22:05 03:25 06:16 WBC RBC Hgb Hct MCV MCHC RDW Plt Count Lymph % (Auto) [place] % (Auto) Eos % (Auto) Lymph # (Auto) [place] # (Auto) Eos # (Auto) Seg Neutrophils % Seg Neuts % (Manual) Lymphocytes % (Manual) Monocytes % (Manual) Seg Neutrophils # Seg Neutrophils # Man Lymphocytes # (Manual) Monocytes # (Manual) PT INR ABG pH POC ABG pCO2 POC ABG pO2 ABG pO2 ABG HCO3 ABG O2 Saturation ABG Base Excess ABG Hemoglobin ABG Oxyhemoglobin ABG Sodium ABG Potassium ABG Chloride ABG Glucose Oxyhemoglobin Sodium Potassium 3.3 L Chloride Carbon Dioxide BUN 38 H Creatinine 5.8 H Glucose 115 H POC Glucose 118 H 130 H Lactic Acid Calcium Phosphorus 1.80 L Magnesium 1.60 L Total Bilirubin AST ALT Alkaline Phosphatase Total Protein Albumin Triglycerides Arterial Blood Glucose Arterial Blood Ionized Calcium Digoxin Crossmatch 02/02/21 02/02/21 02/03/21 17:29 21:53 04:50 WBC RBC Hgb Hct MCV MCHC RDW Plt Count Lymph % (Auto) [place] % (Auto) Eos % (Auto) Lymph # (Auto) [place] # (Auto) Eos # (Auto) Seg Neutrophils % Seg Neuts % (Manual) Lymphocytes % (Manual) Monocytes % (Manual) Seg Neutrophils # Seg Neutrophils # Man Lymphocytes # (Manual) Monocytes # (Manual) PT INR ABG pH POC ABG pCO2 POC ABG pO2 ABG pO2 ABG HCO3 ABG O2 Saturation ABG Base Excess ABG Hemoglobin ABG Oxyhemoglobin ABG Sodium ABG Potassium ABG Chloride ABG Glucose Oxyhemoglobin Sodium Potassium Chloride Carbon Dioxide BUN Creatinine Glucose POC Glucose 115 H 120 H Lactic Acid Calcium Phosphorus Magnesium 1.60 L Total Bilirubin AST ALT Alkaline Phosphatase Total Protein Albumin Triglycerides Arterial Blood Glucose Arterial Blood Ionized Calcium Digoxin Crossmatch 02/03/21 02/03/21 02/03/21 06:12 18:25 23:47 WBC RBC Hgb Hct MCV MCHC RDW Plt Count Lymph % (Auto) [place] % (Auto) Eos % (Auto) Lymph # (Auto) [place] # (Auto) Eos # (Auto) Seg Neutrophils % Seg Neuts % (Manual) Lymphocytes % (Manual) Monocytes % (Manual) Seg Neutrophils # Seg Neutrophils # Man Lymphocytes # (Manual) Monocytes # (Manual) PT INR ABG pH POC ABG pCO2 POC ABG pO2 ABG pO2 ABG HCO3 ABG O2 Saturation ABG Base Excess ABG Hemoglobin ABG Oxyhemoglobin ABG Sodium ABG Potassium ABG Chloride ABG Glucose Oxyhemoglobin Sodium Potassium Chloride Carbon Dioxide BUN Creatinine Glucose POC Glucose 112 H 112 H 131 H Lactic Acid Calcium Phosphorus Magnesium Total Bilirubin AST ALT Alkaline Phosphatase Total Protein Albumin Triglycerides Arterial Blood Glucose Arterial Blood Ionized Calcium Digoxin Crossmatch 02/04/21 02/04/21 02/04/21 05:40 09:37 12:03 WBC RBC Hgb Hct MCV MCHC RDW Plt Count Lymph % (Auto) [place] % (Auto) Eos % (Auto) Lymph # (Auto) [place] # (Auto) Eos # (Auto) Seg Neutrophils % Seg Neuts % (Manual) Lymphocytes % (Manual) Monocytes % (Manual) Seg Neutrophils # Seg Neutrophils # Man Lymphocytes # (Manual) Monocytes # (Manual) PT INR ABG pH POC ABG pCO2 POC ABG pO2 ABG pO2 ABG HCO3 ABG O2 Saturation ABG Base Excess ABG Hemoglobin ABG Oxyhemoglobin ABG Sodium ABG Potassium ABG Chloride ABG Glucose Oxyhemoglobin Sodium 131 L D 135 L Potassium 3.0 L 3.1 L Chloride 93.4 L 96.7 L Carbon Dioxide BUN 46 H 52 H Creatinine 6.5 H 7.3 H Glucose 363 H 128 H POC Glucose 129 H Lactic Acid Calcium Phosphorus 2.40 L Magnesium 1.50 L 1.60 L Total Bilirubin AST ALT Alkaline Phosphatase Total Protein Albumin Triglycerides Arterial Blood Glucose Arterial Blood Ionized Calcium Digoxin Crossmatch 02/04/21 02/04/21 02/05/21 17:25 21:38 05:19 WBC RBC Hgb Hct MCV MCHC RDW Plt Count Lymph % (Auto) [place] % (Auto) Eos % (Auto) Lymph # (Auto) [place] # (Auto) Eos # (Auto) Seg Neutrophils % Seg Neuts % (Manual) Lymphocytes % (Manual) Monocytes % (Manual) Seg Neutrophils # Seg Neutrophils # Man Lymphocytes # (Manual) Monocytes # (Manual) PT INR ABG pH POC ABG pCO2 POC ABG pO2 ABG pO2 ABG HCO3 ABG O2 Saturation ABG Base Excess ABG Hemoglobin ABG Oxyhemoglobin ABG Sodium ABG Potassium ABG Chloride ABG Glucose Oxyhemoglobin Sodium Potassium Chloride Carbon Dioxide BUN Creatinine Glucose POC Glucose 132 H 108 H 116 H Lactic Acid Calcium Phosphorus Magnesium Total Bilirubin AST ALT Alkaline Phosphatase Total Protein Albumin Triglycerides Arterial Blood Glucose Arterial Blood Ionized Calcium Digoxin Crossmatch 02/05/21 02/05/21 02/05/21 06:30 11:25 16:20 WBC RBC Hgb Hct MCV MCHC RDW Plt Count Lymph % (Auto) [place] % (Auto) Eos % (Auto) Lymph # (Auto) [place] # (Auto) Eos # (Auto) Seg Neutrophils % Seg Neuts % (Manual) Lymphocytes % (Manual) Monocytes % (Manual) Seg Neutrophils # Seg Neutrophils # Man Lymphocytes # (Manual) Monocytes # (Manual) PT INR ABG pH POC ABG pCO2 POC ABG pO2 ABG pO2 ABG HCO3 ABG O2 Saturation ABG Base Excess ABG Hemoglobin ABG Oxyhemoglobin ABG Sodium ABG Potassium ABG Chloride ABG Glucose Oxyhemoglobin Sodium Potassium 3.2 L Chloride 96.5 L Carbon Dioxide BUN 76 H Creatinine 9.6 H Glucose 112 H POC Glucose 118 H 123 H Lactic Acid Calcium Phosphorus Magnesium 1.50 L Total Bilirubin AST ALT Alkaline Phosphatase 177 H Total Protein 6.0 L Albumin 2.9 L Triglycerides Arterial Blood Glucose Arterial Blood Ionized Calcium Digoxin Crossmatch 02/06/21 02/06/21 02/06/21 05:42 06:42 08:18 WBC RBC Hgb Hct MCV MCHC RDW Plt Count Lymph % (Auto) [place] % (Auto) Eos % (Auto) Lymph # (Auto) [place] # (Auto) Eos # (Auto) Seg Neutrophils % Seg Neuts % (Manual) Lymphocytes % (Manual) Monocytes % (Manual) Seg Neutrophils # Seg Neutrophils # Man Lymphocytes # (Manual) Monocytes # (Manual) PT INR ABG pH POC ABG pCO2 POC ABG pO2 ABG pO2 ABG HCO3 ABG O2 Saturation ABG Base Excess ABG Hemoglobin ABG Oxyhemoglobin ABG Sodium ABG Potassium ABG Chloride ABG Glucose Oxyhemoglobin Sodium 133 L Potassium Chloride 92.7 L Carbon Dioxide 19 L BUN 100 H Creatinine 11.9 H Glucose 114 H POC Glucose 118 H 114 H Lactic Acid Calcium Phosphorus 4.70 H Magnesium 1.60 L Total Bilirubin AST ALT Alkaline Phosphatase Total Protein Albumin Triglycerides Arterial Blood Glucose Arterial Blood Ionized Calcium Digoxin Crossmatch 02/06/21 02/07/21 02/07/21 23:22 04:35 04:35 WBC RBC 2.52 L Hgb 8.0 L Hct 22.5 L MCV MCHC 36 H RDW 16.7 H Plt Count Lymph % (Auto) 12.7 L [place] % (Auto) 10.2 H Eos % (Auto) 5.0 H Lymph # (Auto) [place] # (Auto) 1.0 H Eos # (Auto) 0.5 H Seg Neutrophils % 71.6 H Seg Neuts % (Manual) Lymphocytes % (Manual) Monocytes % (Manual) Seg Neutrophils # Seg Neutrophils # Man Lymphocytes # (Manual) Monocytes # (Manual) PT INR ABG pH POC ABG pCO2 POC ABG pO2 ABG pO2 ABG HCO3 ABG O2 Saturation ABG Base Excess ABG Hemoglobin ABG Oxyhemoglobin ABG Sodium ABG Potassium ABG Chloride ABG Glucose Oxyhemoglobin Sodium 135 L Potassium 3.4 L Chloride 95.5 L Carbon Dioxide BUN 59 H Creatinine 8.5 H Glucose POC Glucose 117 H Lactic Acid Calcium Phosphorus Magnesium Total Bilirubin AST ALT Alkaline Phosphatase Total Protein Albumin Triglycerides Arterial Blood Glucose Arterial Blood Ionized Calcium Digoxin Crossmatch 02/07/21 02/07/21 02/07/21 04:35 11:31 22:49 WBC RBC Hgb Hct MCV MCHC RDW Plt Count Lymph % (Auto) [place] % (Auto) Eos % (Auto) Lymph # (Auto) [place] # (Auto) Eos # (Auto) Seg Neutrophils % Seg Neuts % (Manual) Lymphocytes % (Manual) Monocytes % (Manual) Seg Neutrophils # Seg Neutrophils # Man Lymphocytes # (Manual) Monocytes # (Manual) PT INR ABG pH POC ABG pCO2 POC ABG pO2 ABG pO2 ABG HCO3 ABG O2 Saturation ABG Base Excess ABG Hemoglobin ABG Oxyhemoglobin ABG Sodium ABG Potassium ABG Chloride ABG Glucose Oxyhemoglobin Sodium Potassium Chloride Carbon Dioxide BUN Creatinine Glucose POC Glucose 117 H 122 H Lactic Acid Calcium Phosphorus Magnesium 1.60 L Total Bilirubin AST ALT Alkaline Phosphatase Total Protein Albumin Triglycerides Arterial Blood Glucose Arterial Blood Ionized Calcium Digoxin Crossmatch 02/08/21 02/08/21 02/08/21 04:56 06:45 22:38 WBC RBC Hgb Hct MCV MCHC RDW Plt Count Lymph % (Auto) [place] % (Auto) Eos % (Auto) Lymph # (Auto) [place] # (Auto) Eos # (Auto) Seg Neutrophils % Seg Neuts % (Manual) Lymphocytes % (Manual) Monocytes % (Manual) Seg Neutrophils # Seg Neutrophils # Man Lymphocytes # (Manual) Monocytes # (Manual) PT INR ABG pH POC ABG pCO2 POC ABG pO2 ABG pO2 ABG HCO3 ABG O2 Saturation ABG Base Excess ABG Hemoglobin ABG Oxyhemoglobin ABG Sodium ABG Potassium ABG Chloride ABG Glucose Oxyhemoglobin Sodium 134 L Potassium 3.5 L Chloride 94.2 L Carbon Dioxide BUN 78 H Creatinine 11.4 H Glucose 101 H POC Glucose 113 H 128 H Lactic Acid Calcium Phosphorus Magnesium Total Bilirubin AST ALT Alkaline Phosphatase Total Protein Albumin Triglycerides Arterial Blood Glucose Arterial Blood Ionized Calcium Digoxin Crossmatch 02/09/21 02/09/21 02/09/21 04:43 07:44 11:33 WBC RBC Hgb Hct MCV MCHC RDW Plt Count Lymph % (Auto) [place] % (Auto) Eos % (Auto) Lymph # (Auto) [place] # (Auto) Eos # (Auto) Seg Neutrophils % Seg Neuts % (Manual) Lymphocytes % (Manual) Monocytes % (Manual) Seg Neutrophils # Seg Neutrophils # Man Lymphocytes # (Manual) Monocytes # (Manual) PT INR ABG pH POC ABG pCO2 POC ABG pO2 ABG pO2 ABG HCO3 ABG O2 Saturation ABG Base Excess ABG Hemoglobin ABG Oxyhemoglobin ABG Sodium ABG Potassium ABG Chloride ABG Glucose Oxyhemoglobin Sodium 135 L Potassium 3.2 L Chloride 93.0 L Carbon Dioxide BUN 42 H Creatinine 8.1 H Glucose 128 H POC Glucose 115 H 127 H Lactic Acid Calcium Phosphorus 2.20 L D Magnesium Total Bilirubin AST ALT Alkaline Phosphatase Total Protein Albumin Triglycerides Arterial Blood Glucose Arterial Blood Ionized Calcium Digoxin Crossmatch 02/09/21 02/09/21 02/10/21 17:31 22:15 06:00 WBC RBC Hgb Hct MCV MCHC RDW Plt Count Lymph % (Auto) [place] % (Auto) Eos % (Auto) Lymph # (Auto) [place] # (Auto) Eos # (Auto) Seg Neutrophils % Seg Neuts % (Manual) Lymphocytes % (Manual) Monocytes % (Manual) Seg Neutrophils # Seg Neutrophils # Man Lymphocytes # (Manual) Monocytes # (Manual) PT INR ABG pH POC ABG pCO2 POC ABG pO2 ABG pO2 ABG HCO3 ABG O2 Saturation ABG Base Excess ABG Hemoglobin ABG Oxyhemoglobin ABG Sodium ABG Potassium ABG Chloride ABG Glucose Oxyhemoglobin Sodium Potassium Chloride 95.4 L Carbon Dioxide BUN 65 H Creatinine 10.2 H Glucose 114 H POC Glucose 114 H 117 H Lactic Acid Calcium Phosphorus 2.20 L Magnesium 2.80 H Total Bilirubin AST ALT Alkaline Phosphatase Total Protein Albumin Triglycerides Arterial Blood Glucose Arterial Blood Ionized Calcium Digoxin Crossmatch 02/10/21 02/10/21 02/10/21 06:21 11:45 22:48 WBC RBC Hgb Hct MCV MCHC RDW Plt Count Lymph % (Auto) [place] % (Auto) Eos % (Auto) Lymph # (Auto) [place] # (Auto) Eos # (Auto) Seg Neutrophils % Seg Neuts % (Manual) Lymphocytes % (Manual) Monocytes % (Manual) Seg Neutrophils # Seg Neutrophils # Man Lymphocytes # (Manual) Monocytes # (Manual) PT INR ABG pH POC ABG pCO2 POC ABG pO2 ABG pO2 ABG HCO3 ABG O2 Saturation ABG Base Excess ABG Hemoglobin ABG Oxyhemoglobin ABG Sodium ABG Potassium ABG Chloride ABG Glucose Oxyhemoglobin Sodium 135 L Potassium 3.1 L Chloride 96.3 L Carbon Dioxide BUN 29 H Creatinine 6.2 H Glucose 115 H POC Glucose 111 H 129 H Lactic Acid Calcium 8.0 L Phosphorus Magnesium Total Bilirubin AST ALT Alkaline Phosphatase Total Protein Albumin Triglycerides Arterial Blood Glucose Arterial Blood Ionized Calcium Digoxin Crossmatch 02/10/21 02/11/21 02/11/21 23:58 04:20 06:23 WBC RBC Hgb Hct MCV MCHC RDW Plt Count Lymph % (Auto) [place] % (Auto) Eos % (Auto) Lymph # (Auto) [place] # (Auto) Eos # (Auto) Seg Neutrophils % Seg Neuts % (Manual) Lymphocytes % (Manual) Monocytes % (Manual) Seg Neutrophils # Seg Neutrophils # Man Lymphocytes # (Manual) Monocytes # (Manual) PT INR ABG pH POC ABG pCO2 POC ABG pO2 ABG pO2 ABG HCO3 ABG O2 Saturation ABG Base Excess ABG Hemoglobin ABG Oxyhemoglobin ABG Sodium ABG Potassium ABG Chloride ABG Glucose Oxyhemoglobin Sodium 136 L Potassium 3.3 L Chloride 97.4 L Carbon Dioxide BUN 34 H Creatinine 6.9 H Glucose 116 H POC Glucose 125 H 120 H Lactic Acid Calcium Phosphorus 2.00 L Magnesium Total Bilirubin AST ALT Alkaline Phosphatase Total Protein Albumin Triglycerides Arterial Blood Glucose Arterial Blood Ionized Calcium Digoxin Crossmatch 02/11/21 02/11/21 02/11/21 11:25 17:31 23:23 WBC RBC Hgb Hct MCV MCHC RDW Plt Count Lymph % (Auto) [place] % (Auto) Eos % (Auto) Lymph # (Auto) [place] # (Auto) Eos # (Auto) Seg Neutrophils % Seg Neuts % (Manual) Lymphocytes % (Manual) Monocytes % (Manual) Seg Neutrophils # Seg Neutrophils # Man Lymphocytes # (Manual) Monocytes # (Manual) PT INR ABG pH POC ABG pCO2 POC ABG pO2 ABG pO2 ABG HCO3 ABG O2 Saturation ABG Base Excess ABG Hemoglobin ABG Oxyhemoglobin ABG Sodium ABG Potassium ABG Chloride ABG Glucose Oxyhemoglobin Sodium Potassium Chloride Carbon Dioxide BUN Creatinine Glucose POC Glucose 125 H 115 H 119 H Lactic Acid Calcium Phosphorus Magnesium Total Bilirubin AST ALT Alkaline Phosphatase Total Protein Albumin Triglycerides Arterial Blood Glucose Arterial Blood Ionized Calcium Digoxin Crossmatch 02/12/21 02/12/21 02/12/21 11:30 11:47 17:09 WBC RBC Hgb Hct MCV MCHC RDW Plt Count Lymph % (Auto) [place] % (Auto) Eos % (Auto) Lymph # (Auto) [place] # (Auto) Eos # (Auto) Seg Neutrophils % Seg Neuts % (Manual) Lymphocytes % (Manual) Monocytes % (Manual) Seg Neutrophils # Seg Neutrophils # Man Lymphocytes # (Manual) Monocytes # (Manual) PT INR ABG pH POC ABG pCO2 POC ABG pO2 ABG pO2 ABG HCO3 ABG O2 Saturation ABG Base Excess ABG Hemoglobin ABG Oxyhemoglobin ABG Sodium ABG Potassium ABG Chloride ABG Glucose Oxyhemoglobin Sodium 135 L Potassium Chloride 97.0 L Carbon Dioxide BUN 63 H Creatinine 9.8 H Glucose 113 H POC Glucose 117 H 116 H Lactic Acid Calcium Phosphorus Magnesium Total Bilirubin AST ALT Alkaline Phosphatase Total Protein Albumin Triglycerides Arterial Blood Glucose Arterial Blood Ionized Calcium Digoxin Crossmatch 02/13/21 02/13/21 02/13/21 00:27 06:05 22:06 WBC RBC Hgb Hct MCV MCHC RDW Plt Count Lymph % (Auto) [place] % (Auto) Eos % (Auto) Lymph # (Auto) [place] # (Auto) Eos # (Auto) Seg Neutrophils % Seg Neuts % (Manual) Lymphocytes % (Manual) Monocytes % (Manual) Seg Neutrophils # Seg Neutrophils # Man Lymphocytes # (Manual) Monocytes # (Manual) PT INR ABG pH POC ABG pCO2 POC ABG pO2 ABG pO2 ABG HCO3 ABG O2 Saturation ABG Base Excess ABG Hemoglobin ABG Oxyhemoglobin ABG Sodium ABG Potassium ABG Chloride ABG Glucose Oxyhemoglobin Sodium Potassium Chloride Carbon Dioxide 20 L BUN 80 H Creatinine 11.5 H Glucose 111 H POC Glucose 110 H 115 H Lactic Acid Calcium Phosphorus 5.00 H D Magnesium Total Bilirubin AST ALT Alkaline Phosphatase 149 H Total Protein 5.9 L Albumin 3.2 L Triglycerides Arterial Blood Glucose Arterial Blood Ionized Calcium Digoxin Crossmatch 02/14/21 02/14/21 02/14/21 06:09 09:24 09:24 WBC 18.2 H RBC 2.44 L Hgb 7.4 L Hct 22.5 L MCV MCHC RDW 18.1 H Plt Count Lymph % (Auto) [place] % (Auto) Eos % (Auto) Lymph # (Auto) [place] # (Auto) Eos # (Auto) Seg Neutrophils % Seg Neuts % (Manual) 91.0 H Lymphocytes % (Manual) 6.0 L Monocytes % (Manual) Seg Neutrophils # Seg Neutrophils # Man 16.6 H Lymphocytes # (Manual) 1.1 L Monocytes # (Manual) PT INR ABG pH POC ABG pCO2 POC ABG pO2 ABG pO2 ABG HCO3 ABG O2 Saturation ABG Base Excess ABG Hemoglobin ABG Oxyhemoglobin ABG Sodium ABG Potassium ABG Chloride ABG Glucose Oxyhemoglobin Sodium 136 L Potassium Chloride Carbon Dioxide BUN 46 H Creatinine 8.1 H Glucose 126 H POC Glucose 124 H Lactic Acid Calcium Phosphorus 1.40 L D Magnesium 1.30 L Total Bilirubin AST ALT Alkaline Phosphatase Total Protein Albumin Triglycerides Arterial Blood Glucose Arterial Blood Ionized Calcium Digoxin Crossmatch 02/14/21 02/14/21 02/14/21 11:44 19:11 22:24 WBC RBC Hgb Hct MCV MCHC RDW Plt Count Lymph % (Auto) [place] % (Auto) Eos % (Auto) Lymph # (Auto) [place] # (Auto) Eos # (Auto) Seg Neutrophils % Seg Neuts % (Manual) Lymphocytes % (Manual) Monocytes % (Manual) Seg Neutrophils # Seg Neutrophils # Man Lymphocytes # (Manual) Monocytes # (Manual) PT INR ABG pH POC ABG pCO2 POC ABG pO2 ABG pO2 ABG HCO3 ABG O2 Saturation ABG Base Excess ABG Hemoglobin ABG Oxyhemoglobin ABG Sodium ABG Potassium ABG Chloride ABG Glucose Oxyhemoglobin Sodium Potassium Chloride Carbon Dioxide BUN Creatinine Glucose POC Glucose 120 H 121 H 119 H Lactic Acid Calcium Phosphorus Magnesium Total Bilirubin AST ALT Alkaline Phosphatase Total Protein Albumin Triglycerides Arterial Blood Glucose Arterial Blood Ionized Calcium Digoxin Crossmatch 02/15/21 02/15/21 04:28 05:31 WBC RBC Hgb Hct MCV MCHC RDW Plt Count Lymph % (Auto) [place] % (Auto) Eos % (Auto) Lymph # (Auto) [place] # (Auto) Eos # (Auto) Seg Neutrophils % Seg Neuts % (Manual) Lymphocytes % (Manual) Monocytes % (Manual) Seg Neutrophils # Seg Neutrophils # Man Lymphocytes # (Manual) Monocytes # (Manual) PT INR ABG pH POC ABG pCO2 POC ABG pO2 ABG pO2 ABG HCO3 ABG O2 Saturation ABG Base Excess ABG Hemoglobin ABG Oxyhemoglobin ABG Sodium ABG Potassium ABG Chloride ABG Glucose Oxyhemoglobin Sodium 133 L Potassium Chloride 96.5 L Carbon Dioxide BUN 66 H Creatinine 9.7 H Glucose 117 H POC Glucose 133 H Lactic Acid Calcium Phosphorus Magnesium 1.50 L Total Bilirubin AST ALT Alkaline Phosphatase Total Protein Albumin Triglycerides Arterial Blood Glucose Arterial Blood Ionized Calcium Digoxin Crossmatch Allied health notes reviewed: nursing
[2021-02-15] MEDS: MICAFUNGIN 100 MG in SODIUM CHLORIDE 0.9% 100 ML IV SCH (15:31)
--- NOTE | 2021-02-15 15:50 | Event Note ---
Date: 02/15/21 Pt was in dialysis at the time of evaluation. Per chart review pt has been afebrile for over 24 hours. HARIS drain output 10ml. Blood cultures have no growth to date. Continue abx per ID. Continue arrangements for home health, TPN for home if feasible.
[2021-02-15] MEDS: CEFEPIME/NS 1 GM/100 ML 1 GM/100 ML BAG IV SCH (17:11)
[2021-02-15] MEDS ORDERED: FAT EMULSIONS 20% 250 ML IV SCH (20:00)
[2021-02-15] MEDS ORDERED: TOTAL PARENTERAL NUTRITION 2,016 ML IV SCH (20:00)
[2021-02-15] MEDS: INSULIN GLARGINE 100 UNITS/ML SUB-Q SCH (22:36)
[2021-02-15] MEDS: HYDROmorphone 1 MG/1 ML INJ IV PRN (22:47)
[2021-02-16] MEDS: INSULIN LISPRO 100 UNIT/ML SUB-Q SCH ×4 (01:58→18:00)
[2021-02-16] MEDS: hydrALAZINE 20 MG/1 ML INJ IV SCH ×6 (02:25→22:16)
[2021-02-16] MEDS: DIPHENOXYLATE/ATROPINE TAB PO SCH ×4 (02:25→18:28)
[2021-02-16] MEDS: METOPROLOL TARTRATE 25 MG TAB PO SCH ×3 (05:34→22:16)
[2021-02-16 05:59] LABS: Hematocrit 20.7 % (35.5-45.6); Hemoglobin 7.1 gm/dl (11.8-15.2); Mean Corpuscular HGB Conc 34 % (32-34); Mean Corpuscular Volume 91 fl (84-94); Platelet Count 147 K/mm3 (140-440); Red Blood Count 2.27 M/mm3 (3.65-5.03); Red Cell Distribution Width 17.8 % (13.2-15.2)
[2021-02-16 06:18] LABS: Calcium 8.3 mg/dL (8.4-10.2)
[2021-02-16] MEDS: metroNIDAZOLE/NS 500 MG/100 ML 500 MG/100 ML BAG IV SCH (07:06)
[2021-02-16] MEDS: ONDANSETRON 4 MG/2 ML INJ IV PRN (07:06)
--- NOTE | 2021-02-16 08:39 | Progress Note ---
Assessment and Plan Assessment: * ESRD previouaslyon peritoneal dialysis; now on back up HD (on peritoneal dialysis for 2 years with no history of peritonitis) * Small bowel obstruction --s/p ex-lap with jejuno-ileal anastamosis --s/p ex lap with extensive lysis of adhesions and two small bowel resections with primary anastamosis for SBO with necrotic segment small bowel. --s/p ex lap, resection of perforated anastamosis, washout and abthera wound vac placement. --s/p ex lap with right hemicolectomy. * Gram positive bacteremia * Septic shock - resolved * Hyperkalemia * Anemia of ESRD * Post op ileus * Paroxysmal atrial fibrillation * Hx of nonischemic cardiomyopathy, resolving --LVEF 50-55% by echo this presentation Plan: * Hemodialysis today - 3K bath with dialysis * Permcath will need removal following HD today - discussed with IR * UF as tolerated * Start Vanco if not yet received * Epogen w/ dialysis - started 20k * Check iron stores - replete prn * Rate control per cardiology * Nutrition per primary team - currently receiving TPN * Maintatin MAP >65 * AM labs Subjective Date of service: 02/16/21 Principal diagnosis: Ac hypoxemic resp failure; Severe Sepsis; Peritonitis; Acute SBO; ESRD; CHF Interval history: Patient has no complaints Objective - Vital Signs Vital signs: Vital Signs - 12hr 02/15/21 02/16/21 02/16/21 22:53 00:00 02:25 Temperature 98.1 F Pulse Rate 86 Respiratory 18 Rate Blood Pressure 132/68 134/67 Blood Pressure 132/74 [Right] O2 Sat by Pulse 96 Oximetry 02/16/21 02/16/21 02/16/21 05:15 05:33 05:34 Temperature 98.6 F Pulse Rate 95 H 95 H 95 H Respiratory 20 Rate Blood Pressure 136/70 136/70 136/70 Blood Pressure [Right] O2 Sat by Pulse 92 Oximetry - Lab 02/16/21 05:24 02/16/21 05:24 Most recent lab results ABG pH 7.345 pH Units (7.350-7.450) L 01/07/21 17:14 ABG pCO2 40.3 mm Hg 01/07/21 17:14 ABG pO2 67.4 mm Hg (80.0-90.0) L 01/07/21 17:14 ABG HCO3 21.5 mmol/L (20.0-26.0) 01/07/21 17:14 ABG O2 Saturation 94.3 % (95.0-99.0) L 01/07/21 17:14 Calcium 8.3 mg/dL (8.4-10.2) L 02/16/21 05:24 Phosphorus 2.60 mg/dL (2.5-4.5) 02/16/21 05:24 Magnesium 1.60 mg/dL (1.7-2.3) L 02/16/21 05:24 Medications & Allergies - Medications Allergies/Adverse Reactions: Allergies No Known Allergies Allergy (Verified 06/09/20 15:27) Home Medications: Home Medications Medication Instructions Recorded Confirmed Last Taken Type Albuterol Mdi (or & Nicu Only) 2 puff IH QID PRN #1 inhalation 04/01/17 02/05/21 10/31/20 09:00 Rx [ProAir HFA Inhaler] Calcium Acetate 667 mg PO DAILY 04/20/20 02/05/21 10/31/20 09:00 History Centrum Men's Tablet 1 tab PO DAILY 04/20/20 02/05/21 10/31/20 09:00 History Cinacalcet 30 mg PO DAILY 04/20/20 02/05/21 10/31/20 09:00 History Dialyvite with Zinc Tablet 1 tab PO DAILY 04/20/20 02/05/21 10/31/20 09:00 History Magnesium 250 mg PO BID 04/20/20 02/05/21 10/31/20 17:00 History Triamcinolone 0.1% 1 1000units TRANSDERMA DAILY 04/20/20 02/05/21 10/31/20 09:00 History Vit B12/Folic Acid/B6/Aa No.15 1,000 mg PO DAILY 04/20/20 02/05/21 10/31/20 09:00 History amLODIPine 10 mg PO DAILY 06/09/20 02/05/21 10/31/20 09:00 History AtorvaSTATin 40 mg PO HS 11/01/20 02/05/21 10/31/20 21:00 History Benadryl 25 mg PO HS 11/01/20 02/05/21 10/31/20 21:00 History Diclofenac 1 applic TRANSDERMA QID 11/01/20 02/05/21 10/31/20 19:00 History Fluticasone Propionate 1 spray INTRANASAL DAILY 11/01/20 02/05/21 10/31/20 09:00 History Vitamin D3 2,000 units PO QDAY 11/01/20 02/05/21 10/31/20 09:00 History carvediloL 12.5 mg PO DAILY 11/01/20 02/05/21 10/31/20 09:00 History hydrALAZINE 100 mg PO TID 11/01/20 02/05/21 10/31/20 19:00 History Active Medications: Generic Name Dose Route Start Last Admin Trade Name Freq PRN Reason Stop Dose Admin Acetaminophen 650 mg 02/14/21 09:00 02/14/21 16:34 Acetaminophen 325 Mg Tab PO 650 mg Q6H PRN Administration Pain, Mild (1-3) Clonidine HCl 0.2 mg 01/11/21 10:00 02/15/21 11:36 Clonidine Tts 0.2 Mg/24 Hr Patch TD Not Given We THOMAS Dextrose 50 ml 01/14/21 17:59 01/18/21 15:10 Dextrose 50% In Water (25gm) 50 Ml Syringe IV 20 ml Q30MIN PRN Administration Hypoglycemia Protocol Digoxin 0.125 mg 02/04/21 10:00 02/14/21 12:19 Digoxin 0.125 Mg Tab PO Not Given Q48HR THOMAS Diphenhydramine HCl 50 mg 01/20/21 10:10 02/01/21 14:15 Diphenhydramine 50 Mg/Ml Vial IV 50 mg Q6H PRN Administration Itching Diphenoxylate HCl/Atropine 1 tab 02/06/21 18:00 02/16/21 05:34 Diphenoxylate/Atropine Tab PO 1 tab Q6H THOMAS Administration Famotidine 10 mg 12/24/20 13:00 02/15/21 22:38 Famotidine 20 Mg/2 Ml Inj IV 10 mg BID THOMAS Administration Fluticasone Propionate 50 mcg 02/07/21 10:00 02/15/21 09:06 Fluticasone Propionate Nasal Matthews 16 Gm NS 50 mcg QDAY THOMAS Administration Haloperidol Lactate 5 mg 12/29/20 14:16 01/22/21 23:56 Haloperidol Lactate 5 Mg/1 Ml Inj IV 5 mg Q12H PRN Administration Agitation Heparin Sodium (Porcine) 5,000 unit 12/24/20 10:00 02/15/21 22:37 Heparin 5,000 Unit/1 Ml Vial SUB-Q 5,000 unit Q12HR THOMAS Administration Hydralazine HCl 10 mg 01/10/21 14:00 02/16/21 05:33 Hydralazine 20 Mg/1 Ml Inj IV 10 mg Q4HR THOMAS Administration Hydrocortisone Acetate 1 applic 02/01/21 18:43 Hydrocortisone 1% Cream 28.4gm TP Q8H PRN Skin Irritation Hydromorphone HCl 0.25 mg 01/09/21 10:53 02/15/21 22:47 Hydromorphone 1 Mg/1 Ml Inj IV 0.25 mg Q6H PRN Administration Pain , Severe (7-10) Sodium Chloride 100 mls @ 999 mls/hr 01/27/21 18:37 Nacl 0.9% IV [place] PRN Hypotension Cefepime HCl 1 gm in 100 mls @ 200 mls/hr 02/14/21 18:00 02/15/21 17:11 Cefepime/Ns 1 Gm/100 Ml IV 200 mls/hr QPM THOMAS Administration Protocol Metronidazole 500 mg in 100 mls @ 100 mls/hr 02/14/21 14:00 02/16/21 07:06 Flagyl 500 Mg/100 Ml IV 100 mls/hr Q8H THOMAS Administration Protocol Micafungin Sodium 100 mg/ 100 mls @ 100 mls/hr 02/14/21 14:00 02/15/21 15:31 Sodium Chloride IV 100 mls/hr Q24H THOMAS Administration Protocol Amino Acids/Electrolytes/Dextrose 2,016 mls @ 84 mls/hr 02/15/21 20:00 02/15/21 21:14 Tpn Adult IV 02/16/21 19:59 84 mls/hr DAILY@2000 [facility] [place] Administration Protocol Insulin Glargine 5 units 01/18/21 22:00 02/15/21 22:36 Insulin Glargine 100 Units/Ml SUB-Q 5 units QHS THOMAS Administration Insulin Human Lispro 0 unit 01/03/21 12:00 02/16/21 05:35 Insulin Lispro 100 Unit/Ml SUB-Q Not Given Q6HR [facility] [place] Protocol Metoprolol Tartrate 25 mg 02/14/21 14:00 02/16/21 05:34 Metoprolol Tartrate 25 Mg Tab PO 25 mg Q8HR THOMAS Administration Morphine Sulfate 2 mg 02/02/21 12:00 02/03/21 13:31 Morphine 2 Mg/1 Ml Inj IV 2 mg Q3H PRN Administration Pain, Moderate (4-6) Ondansetron HCl 4 mg 01/25/21 11:56 02/16/21 07:06 Ondansetron 4 Mg/2 Ml Inj IV 4 mg Q4H PRN Administration Nausea And Vomiting Scopolamine 1 each 01/15/21 11:00 02/14/21 12:24 Scopolamine Transdermal Patch 72 Hr TD 1 each Q3D THOMAS Administration Sodium Chloride 10 ml 12/22/20 22:00 02/15/21 22:43 Sodium Chloride 0.9% 10 Ml Flush Syringe IV 10 ml BID THOMAS Administration Sodium Chloride 10 ml 12/22/20 19:42 01/29/21 02:08 Sodium Chloride 0.9% 10 Ml Flush Syringe IV 10 ml PRN PRN Administration LINE FLUSH
--- NOTE | 2021-02-16 09:09 | Progress Note ---
Assessment and Plan Assessment and plan: Severe Sepsis with shock Streptococcus bovis bacteremia/Prevotella bacteremia Gwendolyn albicans tracheal aspirate Small bowel obstruction/necrotic bowel s/p ex lap with extensive lysis of adhesions, 2 small bowel resections with primary anastomosis, right hemicolectomy, jejunal colonic anastomosis, segmental small bowel resection Postoperative ileus Atrial fibrillation with RVR Leukocytosis Hypochloremia Gwendolyn albicans in tracheal aspirate from 12/24 ESRD on PD, PermCath to be placed Transaminitis Systolic CHF(EF 35%) Crohn's disease Hypertension Hypokalemia and hypophosphatemia -[facility], surgery, infectious disease, nephrology, vascular surgery, cardiology consulted, appreciate recommendations -12/24 S/p ex lap with extensive expectations, 2 small bowel resections with primary anastomosis with surgery on 12/23 -s/p PICC and Permacath placement with vascular surgery on 12/27 -Extubated on 12/28, reintubated 12/31 for respiratory distress and extubated 01/08 -12/29 echocardiogram shows moderate concentric LVH, small pericardial effusion, transmitral Doppler flow pattern is grade 1 abnormal relaxation pattern, left- ventricular systolic function normal, LVEF 50 to 55%, no wall motion abnormalities. -01/01 CT abdomen/pelvis shows small pericardial effusion, mild coronary artery atherosclerotic calcification, small bilateral pleural effusions with associated volume loss, no convincing evidence of bowel obstruction or inflammation, postoperative changes from interval/recent midline laparotomy with a moderate amount of free fluid throughout the abdomen, small amount of dependent free air presumably postoperative -01/02 s/p ex lap, resection of perforated anastamosis, washout and abthera wound vac placement. -01/04 s/p ex lap with right hemicolectomy. -01/06 s/p exploratory laparotomy, Jejunal colonic anastomosis, Segmental small bowel resection. -s/p Vasopressor support with Levophed and vasopressin -Transitioned to HD from PD -HD per nephro, Epogen with HD -Strict NPO -cont TPN, Octreotide drip -s/p NGT to LIWS, now placed on G-tube for decompression - s/p rectal tube -s/p IV antibiotics -Tobacco abuse cessation counseling -Trend CBC, BMP DVT/GI prophylaxis: PPI, heparin subcu, SCDs to bilateral lower extremities while in bed Brief Course: This is a 60 YO Male with ESRD on PD, GERD, Crohn's Disease, Nicotine Dependence, HTN, Systolic CHF(EF 35%) who presented to the emergency department on 12/22 with complaints of abdominal pain which began shortly after e ating fast food rated 10/10 which is periumbilical, constant, associated with fever, nausea and multiple sites of vomiting and self-reported inability to undergo PD. In the emergency room patient underwent a CT scan of the abdomen/pelvis which revealed evidence of partial small bowel obstruction, s ymptoms were consistent with bacterial peritonitis. Patient was admitted to the hospital service with sepsis, peritonitis, and small bowel obstruction with consults to general surgery, nephrology, infectious disease and [facility]. Daily clinical course: 12/23. Patient had temperature 101.2 F, tachycardia and elevated lactic acid on admission. Meet sepsis criteria. Started on IV antibiotics. ID has been consulted. Surgery consulted this a.m.-advised laparoscopy. He remains on NG tube connected to suction. 12/24. Patient was noted to have peritonitis yesterday and patient undergoing exploratory laparotomy. Patient remained intubated after procedure and is in ICU. Now on broad-spectrum antibiotics. ID on board. 12/25. Remains mechanically ventilated and sedated. Temp 103 Fahrenheit. Antibiotics broadened-ID added fluconazole and Flagyl. Blood cultures ordered. Plan to repeat CT abdomen tomorrow if not better. Surgery following. 12/26: Patient remains on mechanical ventilation on CMV tidal line 550, rate of 14, PEEP of 8 and 30% FiO2 and sedated on fentanyl 4 micrograms. Today we will remove his Jeffery and CCM dropped his rate controlled him on CPAP. We will trend CBC given recent drop in H/H. 12/27: Patient remains intubated on CMV tidal volume 550, rate 12, PEEP 8 on 30% FiO2 at the time my examination. Patient's TPN will be changed to PPN. Pat ient's fentanyl drip will be changed to IV push fentanyl and have a permacath placed today and midline. Patient was placed on a spontaneous breathing trial was switched back to CMV prior to procedure. 12/28: Patient on fentanyl but awake and follows commands. At the time of my examination he was on a CPAP trial and is scheduled to receive HD today. s/o permacath and PICC placement with vascular yesterday. His blood culture grew Prevotella and addition to Streptococcus bovis. This evening Dr. Spicer attempted to extubate the patient and his heart rate went to the 180s. Stat EKG obtained and cardiology consulted. 12/29: Patient was started on amiodarone IV for A. fib RVR yesterday and today he is more rate controlled into the 70s and 80s. Patient was extubated yesterday and is currently on Ventimask. Patient will be transferred to [facility]. Patient continues to be n.p.o. with TPN and NG tube to [facility]. He is hypokalemic today which was repleted. 12/30; patient was on IV amiodarone for treatment with RVR, rate is controlled. Patient was off oxygen. patient is n.p.o. and on TPN. Surgery is following the patient. 12/31: Patient was intubated overnight for respiratory distress and this morning on examination he was on assist control tidal volume 450, rate 20, PEEP 6, 100% FiO2 and RT was getting a ABG to adjust vent settings. Patient had a acute bump in WBC and per ID recommendations we will obtain a CT abdomen/pelvis if leukocytosis persist. Patient is on TPN and sedated with Levophed. Patient is also on vasopressor support with Levophed. Per surgery his ileus is resolving however will maintain OGT to LIWS. 01/01: Patient was started on a vasopressin yesterday late evening. This morning patient is on 20 mcg of Levophed and 0.03 vasopressin and sedated on 20 mcg of propofol. Patient WBC increased today and he is hypokalemic. We will treat hyperkalemia. Patient had a CT chest and abdomen/pelvis pending. The time examination total of 450, rate 20, PEEP of 6 and 35 percent FiO2. Per RN, Dr Pollock has stated that the patient will be returning to the OR today for likely anastomosis seen on CT abdomen/pelvis. 01/02: Patient noted, WBC improving, but noted to have anemia, will transfuse additional unit of Blood and repeat H/H. continue supportive care. 01/03: Continue to wean pressors, ABX PER ID, patient to return to OR today for washout and possible closure, CONTINUE TPN 5/12: Continues to show some improvement. Today is POD#12 s/p ex lap with extensive lysis of adhesions and two small bowel resections with primary anastamosis for SBO with necrotic segment small bowel. POD#3 s/p ex lap, resection of perforated anastamosis, washout and abthera wound vac placement. POD#1 s/p ex lap with right hemicolectomy. Surgery planning to take back to the OR on Saturday with the hope to anastamos ileum to transverse colon and close abdomen. keep NGT to suction. Pt in deep sedation due to open abdomen. Per ID - Continue IV Zosyn, renally dosed for Strep bacteremia treatment till 01/06/2021 -On TPN 01/05: Patient continues on HD, anticipate return to OR tomorrow for closure and anastemosis. Continues with deep sedation due to open abdomen 01/06: Continue supportive care, monitor pressures and electrolytes. He is post op Exploratory laparotomy, 2. Jejunal colonic anastomosis,3. Segmental small bowel resection and anastemosis closure today. Continue wound vac 01/07: Continue supportive care, Today is POD#15 s/p ex lap with extensive lysis of adhesions and two small bowel resections with primary anastamosis for SBO with necrotic segment small bowel. POD#6 s/p ex lap, resection of perforated anastamosis, washout and abthera wound vac placement. POD#4 s/p ex lap with right hemicolectomy. POD #1 exploratory laparotomy, 2. Jejunal colonic anastomosis,3. Segmental small bowel resection. Continue to monitor and corre ct electrolytes. Patient remains on fentanyl and TPN with lipids. Still hypoactive bowel sounds. 16: Patient now extubated, asked when he can go home, Still lethargic. Continue wound management, wound vac, Will need Rehab eval prior to discharge. 01/09: Patient remains on TPN, was started on labetalol drip per cardiology, patient had uncontrolled hypertension today however he cannot be given p.o. medications ileus resolves per surgery. Patient received hemodialysis today. NG tube remains to low intermittent suction. 01/10: Patient has some leukocytosis, slight hypokalemia and hyponatremia, metabolic acidosis. NG tube to LIWS, continue TPN. Patient will be downgraded to IMCU today. [facility] is working on placement. Will change frequency of hydralazine and discontinue labetalol drip. We will obtain a.m. BMP/mag/Phos and CBC. Infectious disease will like to start Zosyn if leukocytosis continues to worsen. 01/11: Patient leukocytosis has slightly improved potassium with in normal limits and other electrolytes are elevated but patient is scheduled for HD today. Remains on RA and A,A,Ox4. BP better controlled but remains elevated and we will increase clonidine dose. 01/12/2021; patient's blood pressure is better after dialysis and as needed IV medications and clonidine patch. Patient is followed by general surgery. Patient was alert and oriented and asked when he is going home. 01/13: Surgery is concerned about a leak at his anastamosis given increased output and will treat as controlled fistula and start an octreotide drip. And per surgery if he requires operative intervention will likely need to be left in discontinuity and eventual ileostomy as he has already failed two anastamoses. Patient still has tongue swelling and slurred speech. He is on Benadryl. 01/14: Patient's tongue swelling is improved, patient is alert and oriented, CAM ICU negative. Continue NG tube to low wall intermittent suction. Leukocytosis is improving. Hypomagnesemia resolved. Epogen with HD 01/15: Patient tongue swelling is much improved, bladder scan completed by bedside RN and he needed to be straight cathed. NGT output decreased. Leukocytosis improving. Patient has been having episodes of hypoglycemia during the day and he is on cyclic TPN, Lantus rescheduled to nightly and dosage decreased. 01/16: Continue management per ID and surgery. Will defer repeat CT of the a bdomen to the team surgery has been approved by nephrology. Continue current diet and advance all to ice if okay with surgery discussed with nursing staff. 01/17: Discussed surgical recommendation of strict n.p.o. except for small amount of ice as patient has already failed to anastomosis. And risk for additional surgery with tissues were extremely friable from previous scar. He continues on octreotide drip to slow down GI output HARIS drain remains in place with NG suction for decompression. Patient verbalized understanding although stressed about being discharged. We will continue IMCU care unless otherwise advised by surgery. Prognosis remains guarded continue to monitor electrolytes considering GI output. 01/18: Continue supportive care, BP mildly elevated, continue to monitor, cont inue current therapy, if no return to PO soon may consider Increasing clonidine to 0.3, PO when ok with surgery. 01/19:Continue supportive care, Per ID continue IV Zosyn, plan to stop at 3 weeks from last surgery end date: 01/24/2021. Other management per surgery. Continue TPN. 01/20: Discussed with Surgery, will continue current management. Advised patient of the findings and plan. 01/21: Continue supportive care. Continue management per surgery advance diet when okay with surgery. Plan of care discussed with the patient in detail. 01/22: NG tube to be replaced explained to the patient why this is important. I agree with PT OT discussed with nursing staff very important to let the PT team know that they should manage HARIS drain while patient is ambulating so that he d oes not come out. Continue current management. Change in ocreotide to q8h and d/c drip NOTED 01/23: Continue supportive care, HD today, counselling provided to the patient on compliance with medical management 01/24: Replace NGT, Continue management per Surgery. POD 32. Mild hypokalemia noted, will replace. 01/25: Brief summary patient is a 60-year-old male admitted with abdominal pain and noted to have necrotic bowel concerning for PD associated peritonitis. Catheter was placed to convert to HD. Patient also underwent multiple surgical interventions. Initial cultures showed Streptococcus bovis bacteremia and Prevotella bacteremia a COLIN was without vegetations repeat blood cultures have been negative. Part of the surgery is included ex lap, resection of perforated anastomosis, washout and a better wound VAC placement on 01/01. While progress has remained slow if has indeed shown some improvement. Patient is agitated about being in the hospital but understands the care management been provided his vital to his health and to prevent further surgeries. The NG tube has been pulled out 2 days ago he vehemently refused the tube being placed back but after a day of nausea with associated vomiting he was accepting of the chest tube to put back. He continues on TPN. We will continue to monitor electrolytes and correct as needed. This a.m. and erroneous blood was obtained likely from the same line as TPN repeat was done which showed normalizing factors. Patient completed antibiotics on 01/25/2020 . 01/26 Patient with severe sepsis with septic shock, small bowel obstruction, necrotic bowel s/p multiple surgeries. He complains of abdominal pain. No fever currently. He asked me when is he going home and i explained that he is not yet stable for discharge 01/27 Patient with severe sepsis with septic shock, small bowel obstruction, necrotic bowel s/p multiple surgeries. He complains of abdominal pain. No fever currently. Paroxysmal atrial fib managed by cardiology 01/28 Patient with severe sepsis with septic shock, small bowel obstruction, necrotic bowel s/p multiple surgeries. No fever currently. No abd pain currently. I discussed with Surgeon, Dr. Pollock. Continue current management. He also has paroxysmal afib, managed by Cardiology. 01/29 Patient with severe sepsis with septic shock, small bowel obstruction, necrotic bowel s/p multiple surgeries. No fever currently. No abd pain currently. I discussed with Surgeon, Dr. Pollock, yesterday. Continue current management. He also has paroxysmal afib, managed by Cardiology. He is on Metoprolol, Digoxin, Clonidine 01/30 Patient with severe sepsis with septic shock, small bowel obstruction, nec rotic bowel s/p multiple surgeries. Patient is a 60-year-old male admitted with abdominal pain and noted to have necrotic bowel concerning for PD associated peritonitis. Catheter was placed to convert to HD. Patient also underwent multiple surgical interventions. Initial cultures showed Strepto coccus bovis bacteremia and Prevotella bacteremia a COLIN was without vegetations repeat blood cultures have been negative. Part of the surgery is included ex lap, resection of perforated anastomosis, washout and a better wound VAC placement on 01/01. While progress has remained slow if has indeed shown some improvement. Patient is agitated about being in the hospital but understands the care management been provided his vital to his health and to prevent further surgeries. He continues on TPN. No fever currently. Less abdominal pain. Discussed with Surgeon, Dr. Pollock, few days ago. Continue current management. He also has paroxysmal afib, managed by Cardiology. He is on Metoprolol, Dig oxin, Clonidine. ESRD on dialysis managed by Nephrology. 01/31: Continue HARIS drain suction. Ongoing treatment for anastomotic leak/controlled low output fistula. Maintain LIWS to NGT and monitor output. continue q 8h ocreotide. cont TPN. Defer to general surgery for NG tube discontinuation. 02/01: planned for g-tube placement for gastric decompression. Removed NG tube today. S/p HD -tolerated well : Status post G-tube placement today, resume TPN, patient is off from rectal tube. Continue supportive care and follow general surgery recommendation for discharge planning. Hemodialysis per schedule 02/03 -02/05: cont TPN, G-tube suction, Continue supportive care and follow general surgery recommendation for discharge planning. Hemodialysis per schedule. 02/06: Per surgery Anastamotic leak slowing down and is a controlled fistula. Continue HARIS drain suction. Since HARIS drain has continued to stay about 10ml over the last several days, plan to continue lower dose of octreotide. continue g-tube to drainage for decompression. continue clear liquids and closely monitor HARIS drain output. patient need LTAC placement. Continue to replace electrolytes and monitor phosphate level 02/07/2021; Per surgery Anastamotic leak slowing down and is a controlled fistula. Continue HARIS drain suction. Since HARIS drain has continued to stay about 10ml over the last several days, plan to continue lower dose of octreotide. continue g-tube to drainage for decompression. continue clear liquids and closely monitor HARIS drain output. patient need LTAC placement. Continue to replace electrolytes and monitor phosphate level. 02/08/2021; patient need to be transferred to LTAC. Patient expressed he wants to go home. 02/09/2021; pending LTAC placement 02/10/2021; pending LTAC placement 02/11/2021;case management continues to find a place to take him. General surgery is considering to discharge him home with home health, home TPN. 02/12/2021; patient expressed to go home. Put a consult for case management to arrange home health and home TPN. 02/13/2021; patient does not want to go to rehab or LTAC. I have discussed with case management about the option of getting home health and home PPN. Case management is working on it. 02/14: Patient now with fever Tmax 101.7, has been low grade prior, will recheck per my discussion with nursing staff. Will check CBC, Procalcitonin, blood clutures, chest xray. Patient is a dialysis patient and has PICC line. From my understanding not returning blood. Will need to check integrity of the line. Nurse to call PICC team. Will like to monitor 24 hrs prior to planned discharge. Understand patient is still on TPN. 02/15: Recurrent spesis, in patient with mulitiple line and TPN, input from ID - f/u blood cultures. PER ID - continue empiric renally dosed Cefepime + Vancomycin + Flagyl + Micafungin (has indwelling lines and has been on TPN) - if no source is identified, may need abdominal imaging with CT with contrast coordinated with dialysis No new FEVER TODAY Continue supportive care. 02/16: Patient seen and examined, 4/4 Bottles positive GPC, ID input noted. Discussed with paper stripper, vascular and the patient, all central lines will be removed following HD today. Continue antibiotics. History Interval history: This is a 60-year-old male with ESRD on peritoneal dialysis, Crohn's, hypertension, systolic CHF (EF 35%) who was admitted with sepsis, peritonitis, small bowel obstruction and now has gram-positive cocci bacteremia. Patient clinically stable, No new complaints. Hospitalist Physical - Physical exam Narrative exam: Patient was not in cardiopulmonary distress The patient appeared well nourished and normally developed. Vital signs as documented. Head exam is unremarkable. No scleral icterus . Neck is without jugular venous distension, thyromegaly, or carotid bruits. Lungs are clear to auscultation. Cardiac exam reveals regular rate and Rhythm. Abdominal exam reveals clean midline surgical laparatomy wound. HARIS tube in place Extremities are nonedematous and both femoral and pedal pulses are normal. VIDEO LIBRARY ASSISTANT: Alert and oriented 3. No focal weakness. - Constitutional Vitals: Temp Pulse Resp BP Pulse Ox 99.3 F 87 18 117/57 94 02/16/21 08:20 02/16/21 08:20 02/16/21 08:20 02/16/21 08:20 02/16/21 08:20 General appearance: Present: no acute distress HEART Score - HEART Score Troponin: Troponin T 0.021 ng/mL (0.00-0.029) 12/22/20 14:38 Results - Labs CBC & Chem 7: 02/16/21 05:24 02/16/21 05:24 Labs: Laboratory Last Values WBC 7.2 K/mm3 (4.5-11.0) 02/16/21 05:24 RBC 2.27 M/mm3 (3.65-5.03) L 02/16/21 05:24 Hgb 7.1 gm/dl (11.8-15.2) L 02/16/21 05:24 Hct 20.7 % (35.5-45.6) L 02/16/21 05:24 MCV 91 fl (84-94) 02/16/21 05:24 MCH 31 pg (28-32) 02/16/21 05:24 MCHC 34 % (32-34) 02/16/21 05:24 RDW 17.8 % (13.2-15.2) H 02/16/21 05:24 Plt Count 147 K/mm3 (140-440) 02/16/21 05:24 Lymph % (Auto) 12.7 % (13.4-35.0) L 02/07/21 04:35 [place] % (Auto) 10.2 % (0.0-7.3) H 02/07/21 04:35 Eos % (Auto) 5.0 % (0.0-4.3) H 02/07/21 04:35 Baso % (Auto) 0.5 % (0.0-1.8) 02/07/21 04:35 Lymph # (Auto) 1.2 K/mm3 (1.2-5.4) 02/07/21 04:35 [place] # (Auto) 1.0 K/mm3 (0.0-0.8) H 02/07/21 04:35 Eos # (Auto) 0.5 K/mm3 (0.0-0.4) H 02/07/21 04:35 Baso # (Auto) 0.0 K/mm3 (0.0-0.1) 02/07/21 04:35 Add Manual Diff Complete 02/14/21 09:24 Total Counted 100 02/14/21 09:24 Seg Neutrophils % Sign Language Instructor 02/14/21 09:24 Seg Neuts % (Manual) 91.0 % (40.0-70.0) H 02/14/21 09:24 Band Neutrophils % 1.0 % 02/14/21 09:24 Lymphocytes % (Manual) 6.0 % (13.4-35.0) L 02/14/21 09:24 Reactive Lymphs % (Man) 1.0 % 12/29/20 05:16 Monocytes % (Manual) 2.0 % (0.0-7.3) 02/14/21 09:24 Eosinophils % (Manual) 2.0 % (0.0-4.3) 12/29/20 05:16 Metamyelocytes % 2.0 % 12/29/20 05:16 Nucleated RBC % Not Reportable 02/14/21 09:24 Seg Neutrophils # 6.9 K/mm3 (1.8-7.7) 02/07/21 04:35 Seg Neutrophils # Man 16.6 K/mm3 (1.8-7.7) H 02/14/21 09:24 Band Neutrophils # 0.2 K/mm3 02/14/21 09:24 Lymphocytes # (Manual) 1.1 K/mm3 (1.2-5.4) L 02/14/21 09:24 Abs React Lymphs (Man) 0.0 K/mm3 02/14/21 09:24 Monocytes # (Manual) 0.4 K/mm3 (0.0-0.8) 02/14/21 09:24 Eosinophils # (Manual) 0.0 K/mm3 (0.0-0.4) 02/14/21 09:24 Basophils # (Manual) 0.0 K/mm3 (0.0-0.1) 02/14/21 09:24 Metamyelocytes # 0.0 K/mm3 02/14/21 09:24 Myelocytes # 0.0 K/mm3 02/14/21 09:24 Promyelocytes # 0.0 K/mm3 02/14/21 09:24 Blast Cells # 0.0 K/mm3 02/14/21 09:24 WBC Morphology Not Reportable 02/14/21 09:24 Hypersegmented Neuts Not Reportable 02/14/21 09:24 Hyposegmented Neuts Not Reportable 02/14/21 09:24 Hypogranular Neuts Not Reportable 02/14/21 09:24 Smudge Cells Not Reportable 02/14/21 09:24 Toxic Granulation Not Reportable 02/14/21 09:24 Toxic Vacuolation Not Reportable 02/14/21 09:24 Dohle Bodies Not Reportable 02/14/21 09:24 Pelger-Huet Anomaly Not Reportable 02/14/21 09:24 Lamar Rods Not Reportable 02/14/21 09:24 Platelet Estimate Consistent w auto 02/14/21 09:24 Clumped Platelets Not Reportable 02/14/21 09:24 Plt Clumps, EDTA Not Reportable 02/14/21 09:24 Large Platelets Rare 02/14/21 09:24 Giant Platelets Not Reportable 02/14/21 09:24 Platelet Satelliting Not Reportable 02/14/21 09:24 Plt Morphology Comment Not Reportable 02/14/21 09:24 RBC Morphology Not Reportable 02/14/21 09:24 Dimorphic RBCs Not Reportable 02/14/21 09:24 Polychromasia Few 02/14/21 09:24 Hypochromasia Not Reportable 02/14/21 09:24 Poikilocytosis Not Reportable 02/14/21 09:24 Anisocytosis 1+ 02/14/21 09:24 Microcytosis Not Reportable 02/14/21 09:24 Macrocytosis Not Reportable 02/14/21 09:24 Spherocytes Not Reportable 02/14/21 09:24 Pappenheimer Bodies Not Reportable 02/14/21 09:24 Sickle Cells Not Reportable 02/14/21 09:24 Target Cells Not Reportable 02/14/21 09:24 Tear Drop Cells Few 02/14/21 09:24 Ovalocytes Not Reportable 02/14/21 09:24 Helmet Cells Not Reportable 02/14/21 09:24 [place] Bodies Not Reportable 02/14/21 09:24 Berry Rings Not Reportable 02/14/21 09:24 Jenny Cells Not Reportable 02/14/21 09:24 Bite Cells Not Reportable 02/14/21 09:24 Crenated Cell Not Reportable 02/14/21 09:24 Elliptocytes Not Reportable 02/14/21 09:24 Acanthocytes (Spur) Not Reportable 02/14/21 09:24 Rouleaux Not Reportable 02/14/21 09:24 Hemoglobin C Crystals Not Reportable 02/14/21 09:24 Schistocytes Not Reportable 02/14/21 09:24 Malaria parasites Not Reportable 02/14/21 09:24 Lucas Bodies Not Reportable 02/14/21 09:24 Hem Pathologist Commnt No 02/14/21 09:24 PT 16.9 Sec. (12.2-14.9) H 01/01/21 12:45 INR 1.39 (0.87-1.13) H 01/01/21 12:45 APTT 25.1 Sec. (24.2-36.6) 12/22/20 14:38 ABG pH 7.345 pH Units (7.350-7.450) L 01/07/21 17:14 POC ABG pCO2 41.4 mmHg (32.0-48.0) 01/07/21 03:07 ABG pCO2 40.3 mm Hg 01/07/21 17:14 POC ABG pO2 94.5 mmHg (83-108) 01/07/21 03:07 ABG pO2 67.4 mm Hg (80.0-90.0) L 01/07/21 17:14 POC ABG HCO3 22.7 01/07/21 03:07 ABG HCO3 21.5 mmol/L (20.0-26.0) 01/07/21 17:14 ABG O2 Saturation 94.3 % (95.0-99.0) L 01/07/21 17:14 ABG O2 Content 11.6 (0.0-44) 01/07/21 17:14 POC ABG Base Excess -2.7 01/07/21 03:07 ABG Base Excess -3.9 mmol/L (-2.0-3.0) L 01/07/21 17:14 ABG Hemoglobin 8.9 gm/dl (14.0-18.0) L 01/07/21 17:14 ABG Oxyhemoglobin 96.6 (94-98) 01/07/21 03:07 ABG Carboxyhemoglobin 1.5 % (0.0-5.0) 01/07/21 17:14 ABG Methemoglobin 0.6 % (0.0-1.5) 01/07/21 17:14 ABG Sodium 135.6 mmol/L (136.0-145.0) L 01/07/21 03:07 ABG Potassium 4.0 mmol/L (3.40-4.50) 01/07/21 03:07 ABG Chloride 102.0 mmol/L (98-107) 01/07/21 03:07 ABG Glucose 181 mg/dL (65-95) H 01/07/21 03:07 Oxyhemoglobin 92.3 % (95.0-99.0) L 01/07/21 17:14 Carboxyhemoglobin 0.7 (0.5-1.5) 01/07/21 03:07 FiO2 21 % 01/07/21 17:14 FiO2 % 45.0 01/07/21 03:07 Sodium 135 mmol/L (137-145) L 02/16/21 05:24 Potassium 3.6 mmol/L (3.6-5.0) 02/16/21 05:24 Chloride 98.5 mmol/L (98-107) 02/16/21 05:24 Carbon Dioxide 26 mmol/L (22-30) 02/16/21 05:24 Anion Gap 14 mmol/L 02/16/21 05:24 BUN 36 mg/dL (9-20) H 02/16/21 05:24 Creatinine 6.4 mg/dL (0.8-1.3) H 02/16/21 05:24 Estimated GFR 11 ml/min 02/16/21 05:24 BUN/Creatinine Ratio 6 % 02/16/21 05:24 Glucose 128 mg/dL (75-100) H 02/16/21 05:24 POC Glucose 140 mg/dL (70-105) H 02/16/21 05:16 Lactic Acid 1.70 mmol/L (0.7-2.0) 02/14/21 09:24 Calcium 8.3 mg/dL (8.4-10.2) L 02/16/21 05:24 Phosphorus 2.60 mg/dL (2.5-4.5) 02/16/21 05:24 Magnesium 1.60 mg/dL (1.7-2.3) L 02/16/21 05:24 Total Bilirubin 0.50 mg/dL (0.1-1.2) 02/13/21 06:05 AST 14 units/L (5-40) 02/13/21 06:05 ALT 20 units/L (7-56) 02/13/21 06:05 Alkaline Phosphatase 149 units/L (35-129) H 02/13/21 06:05 Ammonia 30.0 umol/L (25-60) 12/22/20 14:38 Troponin T 0.021 ng/mL (0.00-0.029) 12/22/20 14:38 Total Protein 5.9 g/dL (6.3-8.2) L 02/13/21 06:05 Albumin 3.2 g/dL (3.9-5) L 02/13/21 06:05 Albumin/Globulin Ratio 1.2 % 02/13/21 06:05 Triglycerides 72 mg/dL (2-149) 01/30/21 04:15 Lipase 41 units/L (13-60) 12/22/20 14:38 Procalcitonin 27.86 ng/mL (<0.15) 02/14/21 09:24 TSH 1.470 mlU/mL (0.270-4.200) 12/28/20 19:44 Arterial Blood Glucose 181 mg/dL (65-95) H 01/07/21 03:07 Arterial Blood Ionized Calcium 4.3 mg/dL (4.6-5.3) L 01/07/21 03:07 Urine Color Yellow (Yellow) 12/22/20 18:53 Urine Turbidity Clear (Clear) 12/22/20 18:53 Urine pH 7.0 (5.0-7.0) 12/22/20 18:53 Ur Specific [place] 1.012 (1.003-1.030) 12/22/20 18:53 Urine Protein >500 mg/dL (Negative) 12/22/20 18:53 Urine Glucose (UA) Neg mg/dL (Negative) 12/22/20 18:53 Urine Ketones Neg mg/dL (Negative) 12/22/20 18:53 Urine Blood Neg (Negative) 12/22/20 18:53 Urine Nitrite Neg (Negative) 12/22/20 18:53 Urine Bilirubin Neg (Negative) 12/22/20 18:53 Urine Urobilinogen < 2.0 mg/dL (<2.0) 12/22/20 18:53 Ur Leukocyte Esterase Neg (Negative) 12/22/20 18:53 Urine WBC (Auto) < 1.0 /HPF (0.0-6.0) 12/22/20 18:53 Urine RBC (Auto) 1.0 /HPF (0.0-6.0) 12/22/20 18:53 Fluid Type Dialysate 12/22/20 Unknown Fluid Color Colorless 12/22/20 Unknown Fluid Appearance Cloudy 12/22/20 Unknown Fluid WBC 208 /mm3 12/22/20 Unknown Fluid RBC 45 /mm3 12/22/20 Unknown Fluid Seg Neutrophils 82.0 % 12/22/20 Unknown Fluid Lymphocytes 11.0 % 12/22/20 Unknown Fluid Reactive Lymphs 0 % 12/22/20 Unknown Fluid Monocytes 7.0 % 12/22/20 Unknown Fluid Eosinophils 0 % 12/22/20 Unknown Fluid Basophils 0 % 12/22/20 Unknown Random Vancomycin 11.1 ug/mL (0-40.0) 02/16/21 05:24 Digoxin 0.9 ng/mL (0.9-2.0) 02/04/21 05:40 Coronavirus (PCR) Negative (Negative) 02/13/21 Unknown Hepatitis A IgM Ab Non-reactive (NonReactive) 02/02/21 12:41 Hep Bs Antigen Non-reactive (Negative) 02/02/21 12:41 Hep B Core IgM Ab Non-reactive (NonReactive) 02/02/21 12:41 Hepatitis C Antibody Non-reactive (NonReactive) 02/02/21 12:41 Blood Type A POSITIVE 01/06/21 07:10 Antibody Screen Negative 01/06/21 07:10 Crossmatch See Detail 01/06/21 07:10 Microbiology: Microbiology 02/14/21 14:45 Peripheral/Venous Blood Culture - Preliminary 02/14/21 14:45 Peripheral/Venous Blood Culture - Preliminary Jeffery/IV: Voiding Method Bedside Commode Active Medications - Current Medications Current Medications: Generic Name Dose Route Start Last Admin Trade Name Freq PRN Reason Stop Dose Admin Acetaminophen 650 mg 02/14/21 09:00 02/14/21 16:34 Acetaminophen 325 Mg Tab PO 650 mg Q6H PRN Administration Pain, Mild (1-3) Clonidine HCl 0.2 mg 01/11/21 10:00 02/15/21 11:36 Clonidine Tts 0.2 Mg/24 Hr Patch TD Not Given We THOMAS Dextrose 50 ml 01/14/21 17:59 01/18/21 15:10 Dextrose 50% In Water (25gm) 50 Ml Syringe IV 20 ml Q30MIN PRN Administration Hypoglycemia Protocol Digoxin 0.125 mg 02/04/21 10:00 02/14/21 12:19 Digoxin 0.125 Mg Tab PO Not Given Q48HR THOMAS Diphenhydramine HCl 50 mg 01/20/21 10:10 02/01/21 14:15 Diphenhydramine 50 Mg/Ml Vial IV 50 mg Q6H PRN Administration Itching Diphenoxylate HCl/Atropine 1 tab 02/06/21 18:00 02/16/21 05:34 Diphenoxylate/Atropine Tab PO 1 tab Q6H THOMAS Administration Famotidine 10 mg 12/24/20 13:00 02/15/21 22:38 Famotidine 20 Mg/2 Ml Inj IV 10 mg BID THOMAS Administration Fluticasone Propionate 50 mcg 02/07/21 10:00 02/15/21 09:06 Fluticasone Propionate Nasal [place] 16 Gm NS 50 mcg QDAY THOMAS Administration Haloperidol Lactate 5 mg 12/29/20 14:16 01/22/21 23:56 Haloperidol Lactate 5 Mg/1 Ml Inj IV 5 mg Q12H PRN Administration Agitation Heparin Sodium (Porcine) 5,000 unit 12/24/20 10:00 02/15/21 22:37 Heparin 5,000 Unit/1 Ml Vial SUB-Q 5,000 unit Q12HR THOMAS Administration Hydralazine HCl 10 mg 01/10/21 14:00 02/16/21 05:33 Hydralazine 20 Mg/1 Ml Inj IV 10 mg Q4HR THOMAS Administration Hydrocortisone Acetate 1 applic 02/01/21 18:43 Hydrocortisone 1% Cream 28.4gm TP Q8H PRN Skin Irritation Hydromorphone HCl 0.25 mg 01/09/21 10:53 02/15/21 22:47 Hydromorphone 1 Mg/1 Ml Inj IV 0.25 mg Q6H PRN Administration Pain , Severe (7-10) Sodium Chloride 100 mls @ 999 mls/hr 01/27/21 18:37 Nacl 0.9% IV RYLAND PRN Hypotension Cefepime HCl 1 gm in 100 mls @ 200 mls/hr 02/14/21 18:00 02/15/21 17:11 Cefepime/Ns 1 Gm/100 Ml IV 200 mls/hr QPM THOMAS Administration Protocol Metronidazole 500 mg in 100 mls @ 100 mls/hr 02/14/21 14:00 02/16/21 07:06 Flagyl 500 Mg/100 Ml IV 100 mls/hr Q8H THOMAS Administration Protocol Micafungin Sodium 100 mg/ 100 mls @ 100 mls/hr 02/14/21 14:00 02/15/21 15:31 Sodium Chloride IV 100 mls/hr Q24H THOMAS Administration Protocol Amino Acids/Electrolytes/Dextrose 2,016 mls @ 84 mls/hr 02/15/21 20:00 02/15/21 21:14 Tpn Adult IV 02/16/21 19:59 84 mls/hr DAILY@2000 [facility] Administration Protocol Insulin Glargine 5 units 01/18/21 22:00 02/15/21 22:36 Insulin Glargine 100 Units/Ml SUB-Q 5 units QHS THOMAS Administration Insulin Human Lispro 0 unit 01/03/21 12:00 02/16/21 05:35 Insulin Lispro 100 Unit/Ml SUB-Q Not Given Q6HR [facility] Protocol Metoprolol Tartrate 25 mg 02/14/21 14:00 02/16/21 05:34 Metoprolol Tartrate 25 Mg Tab PO 25 mg Q8HR [facility] Administration Morphine Sulfate 2 mg 02/02/21 12:00 02/03/21 13:31 Morphine 2 Mg/1 Ml Inj IV 2 mg Q3H PRN Administration Pain, Moderate (4-6) Ondansetron HCl 4 mg 01/25/21 11:56 02/16/21 07:06 Ondansetron 4 Mg/2 Ml Inj IV 4 mg Q4H PRN Administration Nausea And Vomiting Scopolamine 1 each 01/15/21 11:00 02/14/21 12:24 Scopolamine Transdermal Patch 72 Hr TD 1 each Q3D THOMAS Administration Sodium Chloride 10 ml 12/22/20 22:00 02/15/21 22:43 Sodium Chloride 0.9% 10 Ml Flush Syringe IV 10 ml BID THOMAS Administration Sodium Chloride 10 ml 12/22/20 19:42 01/29/21 02:08 Sodium Chloride 0.9% 10 Ml Flush Syringe IV 10 ml PRN PRN Administration LINE FLUSH Nutrition/Malnutrition Assess - Dietary Evaluation Nutrition/Malnutrition Findings: Nutrition Notes Start: 12/24/20 12:36 Freq: Status: Active Protocol: Document 02/15/21 12:12 JUAN (Rec: 02/15/21 12:14 [id number]) Nutrition Notes Initial or Follow up Reassessment Current Diagnosis CKD (stage V CKD),Sepsis, Hypertension,Heart Failure, Small Bowel Obstruction Other Pertinent Diagnosis onHD, s/p exp lap, s/p bowel resections, afib Current Diet CPN at 84 ml/hr+ Clear Liquids Labs/Tests Na 133 Mg 1.5 Pertinent Medications Reviewed Height 5 ft 7 in Weight 84 kg [place] Body Weight (kg) 67.27 BMI 29.0 Weight Status Overweight Subjective/Other Information Day 52 TPN. Will increase mg. Pt with new onset sepsis. Percent of energy/protein needs met: 85%/100% Burn Absent Trauma Absent #2 Nutrition Diagnosis Increased nutrient needs ( specify in comment below) Diagnosis Progress(for reassessment Continues documentation) #1 Nutrition Diagnosis Inadequate oral intake Diagnosis Progress(for reassessment Continues documentation) Is patient on ventilator? No Is Patient Ambulatory and/or Out of Bed Yes REE-([facility]-ambulatory/OOB) [ 8.219 [id number]] Calculation Used for Recommendations [facility] Additional Notes Pro needs 1.2-1.3g/k- 109g/day Fluid needs per MD. Nutrition Intervention Nutrition Support: Continue CPN at 84 ml/hr: MVI, Lipids, 20 mEq Mg, Osmolality : 1633. Kcal 2,130 Protein (gm) 110 Carbohydrates (gm) 350 Fat (gm) 50 Fluid (mL) 2,016 Fiber (gm) 0 Goal #1 Meet at least 75% of estimated energy and protein needs via CPN Follow-Up By: 02/16/21 Additional Comments Labs in am: BMP, Mg, Phos FU for wt and PO tolerance
[2021-02-16] MEDS: HEPARIN 5,000 UNIT/1 ML VIAL SUB-Q SCH ×2 (09:44→22:17)
[2021-02-16] MEDS: FAMOTIDINE 20 MG/2 ML INJ IV SCH ×2 (09:44→22:16)
[2021-02-16] MEDS: DIGOXIN 0.125 MG TAB PO SCH (09:44)
[2021-02-16] MEDS: FLUTICASONE PROPIONATE NASAL SPRAY 16 GM NS SCH (09:45)
[2021-02-16] MEDS ORDERED: SODIUM CHLORIDE 0.9% 100 ML IV PRN (10:00)
--- NOTE | 2021-02-16 10:53 | Progress Note ---
Assessment and Plan Cultures: 12/22/2020 blood culture: Streptococcus bovis, Prevotella 12/22/2020 PD fluid culture: No growth 12/24/2020 tracheal aspirate culture: No growth 12/24/2020 blood culture: No growth 12/31/2020 sputum culture: No growth 02/14/2021 blood culture: GPC in both sets A/P: 60-year-old male with ESRD on PD, Crohn's disease, CHF, gastroesophageal reflux disease was admitted to the hospital with complaints of abdominal pain and fever: #New onset sepsis, secondary to GPC bacteremia: CXR without pneumonia. ?line infection #Small bowel obstruction/necrotic bowel: with concern for PD associated peritonitis: Nephrology and general surgery following. Status post exploratory laparotomy on 12/23/2020 with extensive lysis, primary anastomosis, found to have necrotic segment of small bowel. PD catheter remains in place. S/p ex lap, resection of perforated anastamosis, washout and abthera wound vac placement on 01/01. Repeat CT abdomen showed no new abscesses, noted small free fluid. S/p Exploratory laparotomy, Right hemicolectomy, Peritoneal lavage, Partial omentectomy, ABThera wound VAC placement on 01/03/2021. #Streptococcus bovis bacteremia and Prevotella bacteremia: secondary to above. TTE without obvious vegetations. Repeat blood cultures negative. #ESRD: Renally dose antibiotics. Used to be on PD. On HD. Recs: - repeat blood cultures ordered - Cefepime, Flagyl and micafungin discontinued - continue IV Vancomycin, dosing based on levels - will need lines removed due to sepsis and bacteremia d/w Dr. Sonia Denny MD, FACP [facility] O: [phone] F: [phone] Subjective Date of service: 02/16/21 Principal diagnosis: Ac hypoxemic resp failure; Severe Sepsis; Peritonitis; Acute SBO; ESRD; CHF Interval history: Afebrile. Patient seen at dialysis, no new complaints. Blood cultures positive. Objective - Exam Narrative Exam: Physical Exam: Constitutional: awake, alert, calm Head, Ears, Nose: Normocephalic, atraumatic. External ears, nose normal. Eyes: Conjunctivae/corneas clear. No icterus. No ptosis. Neck: supple Cardiovascular: S1, S2 + Respiratory: AE fair bilaterally GI: drains +, midline incision, bowel sounds + Musculoskeletal: No pedal edema, no cyanosis. HD cath and left subclavian central lines + Skin: No rash or abscess Hem/Lymphatic: No palpable cervical or supraclavicular nodes. No lymphangitis Psych: calm, no agitation Neurological: awake, alert, oriented. - Constitutional Vitals: Vital Signs Temp Pulse Resp BP Pulse Ox 99.3 F 87 18 117/57 94 02/16/21 08:20 02/16/21 09:45 02/16/21 08:20 02/16/21 09:45 02/16/21 08:20 Temperature -Last 24 Hours Temperature 99.3 F Temperature 98.6 F Temperature 98.1 F Temperature 99.8 F Temperature 98.7 F Temperature 98.9 F - Labs CBC & Chem 7: 02/16/21 05:24 02/16/21 05:24 Labs: Abnormal lab results 02/15/21 02/16/21 02/16/21 Range/Units 05:31 05:16 05:24 RBC 2.27 L (3.65-5.03) M/mm3 Hgb 7.1 L (11.8-15.2) gm/dl Hct 20.7 L (35.5-45.6) % RDW 17.8 H (13.2-15.2) % Sodium (137-145) mmol/L BUN (9-20) mg/dL Creatinine (0.8-1.3) mg/dL Glucose (75-100) mg/dL POC Glucose 133 H 140 H (70-105) mg/dL Calcium (8.4-10.2) mg/dL Magnesium (1.7-2.3) mg/dL 02/16/21 Range/Units 05:24 RBC (3.65-5.03) M/mm3 Hgb (11.8-15.2) gm/dl Hct (35.5-45.6) % RDW (13.2-15.2) % Sodium 135 L (137-145) mmol/L BUN 36 H (9-20) mg/dL Creatinine 6.4 H (0.8-1.3) mg/dL Glucose 128 H (75-100) mg/dL POC Glucose (70-105) mg/dL Calcium 8.3 L (8.4-10.2) mg/dL Magnesium 1.60 L (1.7-2.3) mg/dL
[2021-02-16] MEDS: EPOETIN ALFA-EPBX 20,000 UNIT/1 ML VIAL IV PRN (11:45)
--- NOTE | 2021-02-16 13:19 | Progress Note ---
Assessment and Plan Acute hypoxemic respiratory failure s/p mechanical ventilatory support. Severe Sepsis Peritonitis Acute small-bowel obstruction with tissue necrosis. End-stage renal disease, on dialysis. Hypertension. Crohn's disease. Gastroesophageal reflux disease. Heart failure with reduced ejection fraction. Hyperkalemia. Anemia that is normocytic. Lactic acidosis. Oropharyngeal dysphagia - line holiday recommended (for tunneled PICC removal today) - antiinfective's per ID rec's (VANC) - follow clinically for S&S of infection re: fevers / WBC - continue care as below otherwise; - continue incentive spirometry - continue octreotide - continue total parenteral nutrition - continue wound care per RN/WCN - continue to wean supplemental oxygen for target O2 sat's > 92% acutely - aspiration precautions - continue bronchodilators with pulmonary hygiene per RT - wean per pulmonary driven protocols otherwise - HD/UF per nephrology prescription for toxin and volume control - avoid nephrotoxins, renally dose all medications - continue accuchecks with glycemic control per SSI for target blood glucose of <180 mg/dL; avoid hypoglycemia - continue to avoid benzodiazepine's, reduce the possibility of delirium - AB's per ID rec's - prn analgesia per pain score - Maintenance of sleep-wake cycle, avoid delirium - G.I. & VTE prophylaxis - PT/OT/ROM exercises - continue mobility protocols for pressure ulcer prophylaxis - Monitor hemodynamics closely - continue other care per attending / other consultants - discharge planning ongoing concurrently .... Re-evaluate in am & prn Subjective Date of service: 02/16/21 Principal diagnosis: Ac hypoxemic resp failure; Severe Sepsis; Peritonitis; Acute SBO; ESRD; CHF Interval history: Patient is seen today for: Ac hypoxemic resp failure; Severe Sepsis; Peritonitis; Acute SBO; ESRD on Dialysis; HTN; Crohn's disease; HFrEF Seen and examined at bedside; 24hour events reviewed; nursing and respiratory care staff consulted; no adverse overnight events reported to me; resting in bed; with low grade fevers; BC's with GPCC both bottles; for removal of central lines today Objective Vital Signs - 12hr 02/16/21 02/16/21 02/16/21 02:25 05:15 05:33 Temperature 98.6 F Pulse Rate 95 H 95 H Respiratory 20 Rate Blood Pressure 134/67 136/70 136/70 O2 Sat by Pulse 92 Oximetry 06/02/16/21 02/16/21 05:34 08:20 09:44 Temperature 99.3 F Pulse Rate 95 H 87 87 Respiratory 18 Rate Blood Pressure 136/70 117/57 117/57 O2 Sat by Pulse 94 Oximetry 02/16/21 02/16/21 02/16/21 09:45 10:30 10:45 Temperature 99.3 F Pulse Rate 87 80 84 Respiratory 18 Rate Blood Pressure 117/57 145/90 133/74 O2 Sat by Pulse Oximetry 02/16/21 02/16/21 02/16/21 11:00 11:15 11:30 Temperature Pulse Rate 83 86 85 Respiratory Rate Blood Pressure 118/71 129/68 103/54 O2 Sat by Pulse Oximetry 02/16/21 02/16/21 02/16/21 11:45 12:00 12:15 Temperature Pulse Rate 89 81 83 Respiratory Rate Blood Pressure 127/80 115/75 105/72 O2 Sat by Pulse Oximetry 02/16/21 02/16/21 12:30 12:45 Temperature Pulse Rate 84 82 Respiratory Rate Blood Pressure 128/73 123/73 O2 Sat by Pulse Oximetry Constitutional: no acute distress Eyes: non-icteric ENT: oropharynx moist Neck: supple, no lymphadenopathy, no JVD Effort: normal Ascultation: Bilateral: diminished breath sounds, rhonchi (scant bases) Percussion: Bilateral: not dull Cardiovascular: regular rate and rhythm, other (S1,S2) Gastrointestinal: hypoactive bowel sounds, soft, non-tender, non-distended (protuberant), other (HARIS-drain; + PEG) Integumentary: other (Midline abdominal incision ) Extremities: no cyanosis, no edema, pulses normal, no ischemia or petechiae Neurologic: non-focal exam (grossly), pupils equal and round, CN II-XII normal Psychiatric: mood appropriate, affect normal CBC and BMP: 02/16/21 05:24 02/16/21 05:24 ABG, PT/INR, D-dimer: ABG ABG pH 7.345 pH Units (7.350-7.450) L 01/07/21 17:14 POC ABG pCO2 41.4 mmHg (32.0-48.0) 01/07/21 03:07 ABG pCO2 40.3 mm Hg 01/07/21 17:14 POC ABG pO2 94.5 mmHg (83-108) 01/07/21 03:07 ABG pO2 67.4 mm Hg (80.0-90.0) L 01/07/21 17:14 POC ABG HCO3 22.7 01/07/21 03:07 ABG O2 Saturation 94.3 % (95.0-99.0) L 01/07/21 17:14 PT/INR, D-dimer PT 16.9 Sec. (12.2-14.9) H 01/01/21 12:45 INR 1.39 (0.87-1.13) H 01/01/21 12:45 Abnormal lab findings: Abnormal Labs 12/22/20 12/22/20 12/22/20 14:38 14:38 14:38 WBC RBC Hgb 11.2 L Hct 35.0 L MCV MCHC RDW 16.7 H Plt Count Lymph % (Auto) [place] % (Auto) Eos % (Auto) Lymph # (Auto) [place] # (Auto) Eos # (Auto) Seg Neutrophils % Seg Neuts % (Manual) 94.0 H Lymphocytes % (Manual) 5.0 L Monocytes % (Manual) Seg Neutrophils # Seg Neutrophils # Man Lymphocytes # (Manual) 0.3 L Monocytes # (Manual) PT INR ABG pH POC ABG pCO2 POC ABG pO2 ABG pO2 ABG HCO3 ABG O2 Saturation ABG Base Excess ABG Hemoglobin ABG Oxyhemoglobin ABG Sodium ABG Potassium ABG Chloride ABG Glucose Oxyhemoglobin Sodium Potassium Chloride Carbon Dioxide BUN 58 H Creatinine 13.2 H Glucose 113 H POC Glucose Lactic Acid 3.60 H* Calcium Phosphorus Magnesium Total Bilirubin 1.30 H AST ALT Alkaline Phosphatase 155 H Total Protein Albumin Triglycerides Arterial Blood Glucose Arterial Blood Ionized Calcium Digoxin Crossmatch 12/22/20 12/22/20 12/23/20 16:26 17:47 05:22 WBC RBC Hgb Hct MCV MCHC RDW Plt Count Lymph % (Auto) [place] % (Auto) Eos % (Auto) Lymph # (Auto) [place] # (Auto) Eos # (Auto) Seg Neutrophils % Seg Neuts % (Manual) Lymphocytes % (Manual) Monocytes % (Manual) Seg Neutrophils # Seg Neutrophils # Man Lymphocytes # (Manual) Monocytes # (Manual) PT INR ABG pH POC ABG pCO2 POC ABG pO2 ABG pO2 ABG HCO3 ABG O2 Saturation ABG Base Excess ABG Hemoglobin ABG Oxyhemoglobin ABG Sodium ABG Potassium ABG Chloride ABG Glucose Oxyhemoglobin Sodium Potassium Chloride Carbon Dioxide BUN Creatinine Glucose POC Glucose Lactic Acid 2.80 H* 3.10 H* 2.30 H* Calcium Phosphorus Magnesium Total Bilirubin AST ALT Alkaline Phosphatase Total Protein Albumin Triglycerides Arterial Blood Glucose Arterial Blood Ionized Calcium Digoxin Crossmatch 12/23/20 12/23/20 12/23/20 05:22 05:22 06:35 WBC 12.1 H RBC Hgb 11.0 L Hct 33.7 L MCV MCHC RDW 16.9 H Plt Count Lymph % (Auto) [place] % (Auto) Eos % (Auto) Lymph # (Auto) [place] # (Auto) Eos # (Auto) Seg Neutrophils % Seg Neuts % (Manual) 93.0 H Lymphocytes % (Manual) 1.0 L Monocytes % (Manual) Seg Neutrophils # Seg Neutrophils # Man 11.3 H Lymphocytes # (Manual) 0.1 L Monocytes # (Manual) PT INR ABG pH POC ABG pCO2 POC ABG pO2 ABG pO2 ABG HCO3 ABG O2 Saturation ABG Base Excess ABG Hemoglobin ABG Oxyhemoglobin ABG Sodium ABG Potassium ABG Chloride ABG Glucose Oxyhemoglobin Sodium Potassium 5.7 H D Chloride Carbon Dioxide BUN 73 H Creatinine 14.2 H Glucose POC Glucose Lactic Acid 2.30 H* Calcium 7.9 L Phosphorus Magnesium Total Bilirubin 1.40 H AST 119 H ALT 130 H Alkaline Phosphatase 183 H Total Protein 6.1 L Albumin 3.6 L Triglycerides Arterial Blood Glucose Arterial Blood Ionized Calcium Digoxin Crossmatch 12/23/20 12/23/20 12/23/20 11:40 13:53 16:47 WBC RBC Hgb 10.0 L Hct 30.4 L MCV MCHC RDW Plt Count Lymph % (Auto) [place] % (Auto) Eos % (Auto) Lymph # (Auto) [place] # (Auto) Eos # (Auto) Seg Neutrophils % Seg Neuts % (Manual) Lymphocytes % (Manual) Monocytes % (Manual) Seg Neutrophils # Seg Neutrophils # Man Lymphocytes # (Manual) Monocytes # (Manual) PT INR ABG pH POC ABG pCO2 POC ABG pO2 137.5 H ABG pO2 ABG HCO3 ABG O2 Saturation ABG Base Excess ABG Hemoglobin 9.7 L ABG Oxyhemoglobin ABG Sodium 134.1 L ABG Potassium 6.6 H ABG Chloride ABG Glucose 103 H Oxyhemoglobin Sodium Potassium Chloride Carbon Dioxide BUN Creatinine Glucose POC Glucose Lactic Acid Calcium Phosphorus Magnesium Total Bilirubin AST ALT Alkaline Phosphatase Total Protein Albumin Triglycerides Arterial Blood Glucose 103 H Arterial Blood Ionized Calcium 3.8 L Digoxin Crossmatch See Detail 12/23/20 12/23/20 12/24/20 20:35 20:40 01:20 WBC RBC Hgb Hct MCV MCHC RDW Plt Count Lymph % (Auto) [place] % (Auto) Eos % (Auto) Lymph # (Auto) [place] # (Auto) Eos # (Auto) Seg Neutrophils % Seg Neuts % (Manual) Lymphocytes % (Manual) Monocytes % (Manual) Seg Neutrophils # Seg Neutrophils # Man Lymphocytes # (Manual) Monocytes # (Manual) PT INR ABG pH 7.252 L POC ABG pCO2 POC ABG pO2 ABG pO2 50.1 L ABG HCO3 ABG O2 Saturation 81.1 L ABG Base Excess -5.9 L ABG Hemoglobin 12.1 L ABG Oxyhemoglobin ABG Sodium ABG Potassium ABG Chloride ABG Glucose Oxyhemoglobin 78.6 L Sodium 134 L Potassium 6.9 H* D 6.3 H* Chloride Carbon Dioxide 18 L 20 L BUN 87 H 91 H Creatinine 15.3 H 15.3 H Glucose 103 H POC Glucose Lactic Acid Calcium 6.9 L 7.5 L Phosphorus Magnesium Total Bilirubin AST ALT Alkaline Phosphatase Total Protein Albumin Triglycerides Arterial Blood Glucose Arterial Blood Ionized Calcium Digoxin Crossmatch 12/24/20 12/24/20 12/24/20 04:00 10:29 10:29 WBC RBC 3.49 L Hgb 10.5 L Hct 31.2 L MCV MCHC RDW 17.5 H Plt Count 124 L Lymph % (Auto) 3.7 L [place] % (Auto) 9.8 H Eos % (Auto) Lymph # (Auto) 0.2 L [place] # (Auto) Eos # (Auto) Seg Neutrophils % 85.9 H Seg Neuts % (Manual) Lymphocytes % (Manual) Monocytes % (Manual) Seg Neutrophils # Seg Neutrophils # Man Lymphocytes # (Manual) Monocytes # (Manual) PT INR ABG pH POC ABG pCO2 28.1 L POC ABG pO2 ABG pO2 ABG HCO3 ABG O2 Saturation ABG Base Excess ABG Hemoglobin ABG Oxyhemoglobin ABG Sodium 133.9 L ABG Potassium 5.3 H ABG Chloride 108.0 H ABG Glucose Oxyhemoglobin Sodium Potassium 5.6 H Chloride Carbon Dioxide 19 L BUN 99 H Creatinine 16.9 H Glucose 52 L POC Glucose Lactic Acid Calcium 7.6 L Phosphorus Magnesium Total Bilirubin 3.50 H AST 67 H ALT 71 H Alkaline Phosphatase Total Protein 3.5 L D Albumin 2.1 L Triglycerides Arterial Blood Glucose Arterial Blood Ionized Calcium 4.0 L Digoxin Crossmatch 12/25/20 12/25/20 12/25/20 03:33 04:00 04:00 WBC 3.8 L RBC 2.90 L Hgb 8.6 L Hct 25.7 L MCV MCHC RDW 16.7 H Plt Count 113 L Lymph % (Auto) [place] % (Auto) Eos % (Auto) Lymph # (Auto) [place] # (Auto) Eos # (Auto) Seg Neutrophils % Seg Neuts % (Manual) Lymphocytes % (Manual) Monocytes % (Manual) Seg Neutrophils # Seg Neutrophils # Man Lymphocytes # (Manual) Monocytes # (Manual) PT INR ABG pH 7.544 H POC ABG pCO2 28.2 L POC ABG pO2 62.8 L ABG pO2 ABG HCO3 ABG O2 Saturation ABG Base Excess ABG Hemoglobin 9.3 L ABG Oxyhemoglobin 93.0 L ABG Sodium 130.3 L ABG Potassium ABG Chloride ABG Glucose 97 H Oxyhemoglobin Sodium Potassium Chloride Carbon Dioxide BUN 62 H Creatinine 11.4 H Glucose POC Glucose Lactic Acid Calcium 7.7 L Phosphorus 5.00 H Magnesium Total Bilirubin AST ALT Alkaline Phosphatase Total Protein Albumin Triglycerides Arterial Blood Glucose 97 H Arterial Blood Ionized Calcium 3.9 L Digoxin Crossmatch 12/26/20 12/26/20 12/27/20 04:46 Unknown 03:40 WBC 4.1 L RBC 2.61 L Hgb 7.8 L Hct 23.4 L MCV MCHC RDW 17.1 H Plt Count 119 L Lymph % (Auto) 5.3 L [place] % (Auto) 10.6 H Eos % (Auto) Lymph # (Auto) 0.2 L [place] # (Auto) Eos # (Auto) Seg Neutrophils % 78.8 H Seg Neuts % (Manual) Lymphocytes % (Manual) Monocytes % (Manual) Seg Neutrophils # Seg Neutrophils # Man Lymphocytes # (Manual) Monocytes # (Manual) PT INR ABG pH 7.333 L 7.332 L POC ABG pCO2 POC ABG pO2 ABG pO2 ABG HCO3 26.9 H ABG O2 Saturation ABG Base Excess -2.4 L ABG Hemoglobin 6.8 L 7.2 L ABG Oxyhemoglobin ABG Sodium ABG Potassium ABG Chloride ABG Glucose Oxyhemoglobin 93.0 L 93.1 L Sodium Potassium Chloride Carbon Dioxide BUN Creatinine Glucose POC Glucose Lactic Acid Calcium Phosphorus Magnesium Total Bilirubin AST ALT Alkaline Phosphatase Total Protein Albumin Triglycerides Arterial Blood Glucose Arterial Blood Ionized Calcium Digoxin Crossmatch 12/27/20 12/27/20 12/27/20 06:40 06:40 11:22 WBC 4.4 L RBC 2.49 L Hgb 7.4 L Hct 22.4 L MCV MCHC RDW 17.1 H Plt Count 111 L Lymph % (Auto) 6.7 L [place] % (Auto) 12.6 H Eos % (Auto) Lymph # (Auto) 0.3 L [place] # (Auto) Eos # (Auto) Seg Neutrophils % 77.6 H Seg Neuts % (Manual) Lymphocytes % (Manual) Monocytes % (Manual) Seg Neutrophils # Seg Neutrophils # Man Lymphocytes # (Manual) Monocytes # (Manual) PT INR ABG pH POC ABG pCO2 POC ABG pO2 ABG pO2 ABG HCO3 ABG O2 Saturation ABG Base Excess ABG Hemoglobin ABG Oxyhemoglobin ABG Sodium ABG Potassium ABG Chloride ABG Glucose Oxyhemoglobin Sodium Potassium Chloride Carbon Dioxide BUN 64 H Creatinine 9.8 H Glucose 147 H POC Glucose 134 H Lactic Acid Calcium 8.3 L Phosphorus 5.00 H Magnesium Total Bilirubin 3.70 H AST 72 H ALT Alkaline Phosphatase 142 H Total Protein 5.1 L D Albumin 2.9 L Triglycerides Arterial Blood Glucose Arterial Blood Ionized Calcium Digoxin Crossmatch 12/27/20 12/27/20 12/28/20 17:29 23:31 03:09 WBC RBC Hgb Hct MCV MCHC RDW Plt Count Lymph % (Auto) [place] % (Auto) Eos % (Auto) Lymph # (Auto) [place] # (Auto) Eos # (Auto) Seg Neutrophils % Seg Neuts % (Manual) Lymphocytes % (Manual) Monocytes % (Manual) Seg Neutrophils # Seg Neutrophils # Man Lymphocytes # (Manual) Monocytes # (Manual) PT INR ABG pH 7.474 H POC ABG pCO2 POC ABG pO2 ABG pO2 ABG HCO3 ABG O2 Saturation ABG Base Excess ABG Hemoglobin 7.8 L ABG Oxyhemoglobin ABG Sodium ABG Potassium ABG Chloride ABG Glucose Oxyhemoglobin Sodium Potassium Chloride Carbon Dioxide BUN Creatinine Glucose POC Glucose 121 H 131 H Lactic Acid Calcium Phosphorus Magnesium Total Bilirubin AST ALT Alkaline Phosphatase Total Protein Albumin Triglycerides Arterial Blood Glucose Arterial Blood Ionized Calcium Digoxin Crossmatch 12/28/20 12/28/20 12/28/20 05:37 05:40 05:40 WBC 4.3 L RBC 2.40 L Hgb 7.2 L Hct 21.5 L MCV MCHC RDW 17.4 H Plt Count 112 L Lymph % (Auto) 6.5 L [place] % (Auto) 16.7 H Eos % (Auto) Lymph # (Auto) 0.3 L [place] # (Auto) Eos # (Auto) Seg Neutrophils % 71.1 H Seg Neuts % (Manual) Lymphocytes % (Manual) Monocytes % (Manual) Seg Neutrophils # Seg Neutrophils # Man Lymphocytes # (Manual) Monocytes # (Manual) PT INR ABG pH POC ABG pCO2 POC ABG pO2 ABG pO2 ABG HCO3 ABG O2 Saturation ABG Base Excess ABG Hemoglobin ABG Oxyhemoglobin ABG Sodium ABG Potassium ABG Chloride ABG Glucose Oxyhemoglobin Sodium Potassium Chloride Carbon Dioxide BUN 85 H Creatinine 11.5 H Glucose 132 H POC Glucose 121 H Lactic Acid Calcium 8.2 L Phosphorus Magnesium 2.40 H Total Bilirubin 3.80 H AST 70 H ALT Alkaline Phosphatase 176 H Total Protein 5.0 L Albumin 2.9 L Triglycerides Arterial Blood Glucose Arterial Blood Ionized Calcium Digoxin Crossmatch 12/28/20 12/28/20 12/28/20 11:34 15:00 17:35 WBC RBC Hgb Hct MCV MCHC RDW Plt Count Lymph % (Auto) [place] % (Auto) Eos % (Auto) Lymph # (Auto) [place] # (Auto) Eos # (Auto) Seg Neutrophils % Seg Neuts % (Manual) Lymphocytes % (Manual) Monocytes % (Manual) Seg Neutrophils # Seg Neutrophils # Man Lymphocytes # (Manual) Monocytes # (Manual) PT INR ABG pH 7.461 H POC ABG pCO2 POC ABG pO2 72.2 L ABG pO2 ABG HCO3 ABG O2 Saturation ABG Base Excess ABG Hemoglobin 8.2 L ABG Oxyhemoglobin 93.6 L ABG Sodium 134.1 L ABG Potassium 3.2 L ABG Chloride ABG Glucose 135 H Oxyhemoglobin Sodium Potassium Chloride Carbon Dioxide BUN Creatinine Glucose POC Glucose 137 H 144 H Lactic Acid Calcium Phosphorus Magnesium Total Bilirubin AST ALT Alkaline Phosphatase Total Protein Albumin Triglycerides Arterial Blood Glucose 135 H Arterial Blood Ionized Calcium 4.4 L Digoxin Crossmatch 12/28/20 12/28/20 12/29/20 19:44 Unknown 00:21 WBC RBC Hgb Hct MCV MCHC RDW Plt Count Lymph % (Auto) [place] % (Auto) Eos % (Auto) Lymph # (Auto) [place] # (Auto) Eos # (Auto) Seg Neutrophils % Seg Neuts % (Manual) Lymphocytes % (Manual) Monocytes % (Manual) Seg Neutrophils # Seg Neutrophils # Man Lymphocytes # (Manual) Monocytes # (Manual) PT INR ABG pH 7.474 H POC ABG pCO2 POC ABG pO2 ABG pO2 ABG HCO3 ABG O2 Saturation ABG Base Excess ABG Hemoglobin 7.8 L ABG Oxyhemoglobin ABG Sodium 133.2 L ABG Potassium ABG Chloride ABG Glucose 139 H Oxyhemoglobin Sodium 135 L Potassium Chloride 96.6 L Carbon Dioxide BUN 47 H Creatinine 7.4 H Glucose 130 H POC Glucose 142 H Lactic Acid Calcium 8.3 L Phosphorus Magnesium Total Bilirubin AST ALT Alkaline Phosphatase Total Protein Albumin Triglycerides Arterial Blood Glucose 139 H Arterial Blood Ionized Calcium 4.3 L Digoxin Crossmatch 12/29/20 12/29/20 12/29/20 05:16 05:16 05:26 WBC RBC 2.53 L Hgb 7.7 L Hct 22.8 L MCV MCHC RDW 17.0 H Plt Count 130 L Lymph % (Auto) [place] % (Auto) Eos % (Auto) Lymph # (Auto) [place] # (Auto) Eos # (Auto) Seg Neutrophils % Seg Neuts % (Manual) 79.0 H Lymphocytes % (Manual) 9.0 L Monocytes % (Manual) Seg Neutrophils # Seg Neutrophils # Man Lymphocytes # (Manual) 0.6 L Monocytes # (Manual) PT INR ABG pH POC ABG pCO2 POC ABG pO2 ABG pO2 ABG HCO3 ABG O2 Saturation ABG Base Excess ABG Hemoglobin ABG Oxyhemoglobin ABG Sodium ABG Potassium ABG Chloride ABG Glucose Oxyhemoglobin Sodium Potassium 3.4 L Chloride 96.6 L Carbon Dioxide BUN 59 H Creatinine 8.3 H Glucose 127 H POC Glucose 141 H Lactic Acid Calcium 8.2 L Phosphorus Magnesium Total Bilirubin 3.00 H AST 88 H ALT Alkaline Phosphatase 188 H Total Protein 5.1 L Albumin 2.8 L Triglycerides Arterial Blood Glucose Arterial Blood Ionized Calcium Digoxin Crossmatch 12/29/20 12/29/20 12/29/20 11:33 17:29 23:22 WBC RBC Hgb Hct MCV MCHC RDW Plt Count Lymph % (Auto) [place] % (Auto) Eos % (Auto) Lymph # (Auto) [place] # (Auto) Eos # (Auto) Seg Neutrophils % Seg Neuts % (Manual) Lymphocytes % (Manual) Monocytes % (Manual) Seg Neutrophils # Seg Neutrophils # Man Lymphocytes # (Manual) Monocytes # (Manual) PT INR ABG pH POC ABG pCO2 POC ABG pO2 ABG pO2 ABG HCO3 ABG O2 Saturation ABG Base Excess ABG Hemoglobin ABG Oxyhemoglobin ABG Sodium ABG Potassium ABG Chloride ABG Glucose Oxyhemoglobin Sodium Potassium Chloride Carbon Dioxide BUN Creatinine Glucose POC Glucose 144 H 130 H 117 H Lactic Acid Calcium Phosphorus Magnesium Total Bilirubin AST ALT Alkaline Phosphatase Total Protein Albumin Triglycerides Arterial Blood Glucose Arterial Blood Ionized Calcium Digoxin Crossmatch 12/30/20 12/30/20 12/30/20 05:23 08:15 09:00 WBC RBC Hgb Hct MCV MCHC RDW Plt Count Lymph % (Auto) [place] % (Auto) Eos % (Auto) Lymph # (Auto) [place] # (Auto) Eos # (Auto) Seg Neutrophils % Seg Neuts % (Manual) Lymphocytes % (Manual) Monocytes % (Manual) Seg Neutrophils # Seg Neutrophils # Man Lymphocytes # (Manual) Monocytes # (Manual) PT INR ABG pH POC ABG pCO2 POC ABG pO2 ABG pO2 ABG HCO3 ABG O2 Saturation ABG Base Excess ABG Hemoglobin ABG Oxyhemoglobin ABG Sodium ABG Potassium ABG Chloride ABG Glucose Oxyhemoglobin Sodium 135 L Potassium Chloride 95.9 L Carbon Dioxide BUN 85 H Creatinine 10.6 H Glucose 128 H POC Glucose 135 H 127 H Lactic Acid Calcium 8.3 L Phosphorus Magnesium Total Bilirubin 2.40 H AST 85 H ALT Alkaline Phosphatase 216 H Total Protein 5.3 L Albumin 2.6 L Triglycerides 155 H Arterial Blood Glucose Arterial Blood Ionized Calcium Digoxin Crossmatch 12/30/20 12/30/20 12/30/20 09:00 11:53 15:49 WBC RBC 2.61 L Hgb 7.8 L Hct 23.7 L MCV MCHC RDW 17.3 H Plt Count Lymph % (Auto) [place] % (Auto) Eos % (Auto) Lymph # (Auto) [place] # (Auto) Eos # (Auto) Seg Neutrophils % Seg Neuts % (Manual) Lymphocytes % (Manual) Monocytes % (Manual) Seg Neutrophils # Seg Neutrophils # Man Lymphocytes # (Manual) Monocytes # (Manual) PT INR ABG pH POC ABG pCO2 POC ABG pO2 ABG pO2 ABG HCO3 ABG O2 Saturation ABG Base Excess ABG Hemoglobin ABG Oxyhemoglobin ABG Sodium ABG Potassium ABG Chloride ABG Glucose Oxyhemoglobin Sodium Potassium Chloride Carbon Dioxide BUN Creatinine Glucose POC Glucose 155 H 146 H Lactic Acid Calcium Phosphorus Magnesium Total Bilirubin AST ALT Alkaline Phosphatase Total Protein Albumin Triglycerides Arterial Blood Glucose Arterial Blood Ionized Calcium Digoxin Crossmatch 12/30/20 12/30/20 12/31/20 17:53 23:45 03:56 WBC RBC Hgb Hct MCV MCHC RDW Plt Count Lymph % (Auto) [place] % (Auto) Eos % (Auto) Lymph # (Auto) [place] # (Auto) Eos # (Auto) Seg Neutrophils % Seg Neuts % (Manual) Lymphocytes % (Manual) Monocytes % (Manual) Seg Neutrophils # Seg Neutrophils # Man Lymphocytes # (Manual) Monocytes # (Manual) PT INR ABG pH POC ABG pCO2 POC ABG pO2 49.4 L ABG pO2 ABG HCO3 ABG O2 Saturation ABG Base Excess ABG Hemoglobin 10.3 L ABG Oxyhemoglobin 84.2 L ABG Sodium 133.1 L ABG Potassium ABG Chloride ABG Glucose 173 H Oxyhemoglobin Sodium Potassium Chloride Carbon Dioxide BUN Creatinine Glucose POC Glucose 139 H 173 H Lactic Acid Calcium Phosphorus Magnesium Total Bilirubin AST ALT Alkaline Phosphatase Total Protein Albumin Triglycerides Arterial Blood Glucose 173 H Arterial Blood Ionized Calcium Digoxin Crossmatch 12/31/20 12/31/20 12/31/20 05:07 06:51 06:51 WBC 20.3 H RBC 3.32 L Hgb 9.8 L Hct 30.3 L D MCV MCHC RDW 17.3 H Plt Count Lymph % (Auto) [place] % (Auto) Eos % (Auto) Lymph # (Auto) [place] # (Auto) Eos # (Auto) Seg Neutrophils % Seg Neuts % (Manual) 87.0 H Lymphocytes % (Manual) 10.0 L Monocytes % (Manual) Seg Neutrophils # Seg Neutrophils # Man 17.7 H Lymphocytes # (Manual) Monocytes # (Manual) PT INR ABG pH POC ABG pCO2 POC ABG pO2 ABG pO2 ABG HCO3 ABG O2 Saturation ABG Base Excess ABG Hemoglobin ABG Oxyhemoglobin ABG Sodium ABG Potassium ABG Chloride ABG Glucose Oxyhemoglobin Sodium Potassium 5.2 H D Chloride Carbon Dioxide BUN 62 H Creatinine 8.4 H Glucose 116 H POC Glucose 120 H Lactic Acid Calcium Phosphorus Magnesium 1.60 L Total Bilirubin AST ALT Alkaline Phosphatase Total Protein Albumin Triglycerides Arterial Blood Glucose Arterial Blood Ionized Calcium Digoxin Crossmatch 12/31/20 12/31/20 12/31/20 09:38 12:19 12:22 WBC RBC Hgb Hct MCV MCHC RDW Plt Count Lymph % (Auto) [place] % (Auto) Eos % (Auto) Lymph # (Auto) [place] # (Auto) Eos # (Auto) Seg Neutrophils % Seg Neuts % (Manual) Lymphocytes % (Manual) Monocytes % (Manual) Seg Neutrophils # Seg Neutrophils # Man Lymphocytes # (Manual) Monocytes # (Manual) PT INR ABG pH POC ABG pCO2 POC ABG pO2 ABG pO2 354.0 H ABG HCO3 ABG O2 Saturation 99.6 H ABG Base Excess ABG Hemoglobin 9.1 L ABG Oxyhemoglobin ABG Sodium ABG Potassium ABG Chloride ABG Glucose Oxyhemoglobin Sodium Potassium 5.2 H Chloride Carbon Dioxide BUN Creatinine Glucose POC Glucose 132 H Lactic Acid Calcium Phosphorus Magnesium Total Bilirubin AST ALT Alkaline Phosphatase Total Protein Albumin Triglycerides Arterial Blood Glucose Arterial Blood Ionized Calcium Digoxin Crossmatch 12/31/20 01/01/21 01/01/21 23:23 03:03 05:04 WBC RBC Hgb Hct MCV MCHC RDW Plt Count Lymph % (Auto) [place] % (Auto) Eos % (Auto) Lymph # (Auto) [place] # (Auto) Eos # (Auto) Seg Neutrophils % Seg Neuts % (Manual) Lymphocytes % (Manual) Monocytes % (Manual) Seg Neutrophils # Seg Neutrophils # Man Lymphocytes # (Manual) Monocytes # (Manual) PT INR ABG pH POC ABG pCO2 POC ABG pO2 79.6 L ABG pO2 ABG HCO3 ABG O2 Saturation ABG Base Excess ABG Hemoglobin 9.2 L ABG Oxyhemoglobin ABG Sodium 131.6 L ABG Potassium 5.8 H ABG Chloride ABG Glucose 177 H Oxyhemoglobin Sodium Potassium Chloride Carbon Dioxide BUN Creatinine Glucose POC Glucose 174 H 167 H Lactic Acid Calcium Phosphorus Magnesium Total Bilirubin AST ALT Alkaline Phosphatase Total Protein Albumin Triglycerides Arterial Blood Glucose 177 H Arterial Blood Ionized Calcium Digoxin Crossmatch 01/01/21 01/01/21 01/01/21 07:31 07:31 11:31 WBC 26.1 H RBC 2.95 L Hgb 8.6 L Hct 27.1 L MCV MCHC RDW 18.2 H Plt Count Lymph % (Auto) [place] % (Auto) Eos % (Auto) Lymph # (Auto) [place] # (Auto) Eos # (Auto) Seg Neutrophils % Seg Neuts % (Manual) 96.0 H Lymphocytes % (Manual) 4.0 L Monocytes % (Manual) Seg Neutrophils # Seg Neutrophils # Man 25.1 H Lymphocytes # (Manual) 1.0 L Monocytes # (Manual) PT INR ABG pH POC ABG pCO2 POC ABG pO2 ABG pO2 ABG HCO3 ABG O2 Saturation ABG Base Excess ABG Hemoglobin ABG Oxyhemoglobin ABG Sodium ABG Potassium ABG Chloride ABG Glucose Oxyhemoglobin Sodium Potassium 6.0 H Chloride Carbon Dioxide 21 L BUN 89 H Creatinine 10.5 H Glucose 179 H POC Glucose Lactic Acid Calcium Phosphorus Magnesium Total Bilirubin AST ALT Alkaline Phosphatase Total Protein Albumin Triglycerides Arterial Blood Glucose Arterial Blood Ionized Calcium Digoxin Crossmatch See Detail 01/01/21 01/01/21 01/01/21 11:51 12:45 16:52 WBC RBC Hgb Hct MCV MCHC RDW Plt Count Lymph % (Auto) [place] % (Auto) Eos % (Auto) Lymph # (Auto) [place] # (Auto) Eos # (Auto) Seg Neutrophils % Seg Neuts % (Manual) Lymphocytes % (Manual) Monocytes % (Manual) Seg Neutrophils # Seg Neutrophils # Man Lymphocytes # (Manual) Monocytes # (Manual) PT 16.9 H INR 1.39 H ABG pH POC ABG pCO2 POC ABG pO2 ABG pO2 ABG HCO3 ABG O2 Saturation ABG Base Excess ABG Hemoglobin ABG Oxyhemoglobin ABG Sodium ABG Potassium ABG Chloride ABG Glucose Oxyhemoglobin Sodium Potassium Chloride Carbon Dioxide BUN Creatinine Glucose POC Glucose 157 H 177 H Lactic Acid Calcium Phosphorus Magnesium Total Bilirubin AST ALT Alkaline Phosphatase Total Protein Albumin Triglycerides Arterial Blood Glucose Arterial Blood Ionized Calcium Digoxin Crossmatch 01/01/21 01/01/2121 17:58 17:58 20:12 WBC 26.9 H RBC 3.14 L Hgb 9.3 L Hct 29.6 L MCV MCHC RDW 17.5 H Plt Count Lymph % (Auto) [place] % (Auto) Eos % (Auto) Lymph # (Auto) [place] # (Auto) Eos # (Auto) Seg Neutrophils % Seg Neuts % (Manual) 84.0 H Lymphocytes % (Manual) 4.0 L Monocytes % (Manual) 12.0 H Seg Neutrophils # Seg Neutrophils # Man 22.6 H Lymphocytes # (Manual) 1.1 L Monocytes # (Manual) 3.2 H PT INR ABG pH POC ABG pCO2 POC ABG pO2 ABG pO2 ABG HCO3 ABG O2 Saturation ABG Base Excess ABG Hemoglobin ABG Oxyhemoglobin ABG Sodium ABG Potassium ABG Chloride ABG Glucose Oxyhemoglobin Sodium 136 L Potassium 6.2 H* Chloride Carbon Dioxide 21 L BUN 92 H Creatinine 10.8 H Glucose 171 H POC Glucose 288 H Lactic Acid Calcium Phosphorus Magnesium Total Bilirubin 2.10 H AST 223 H ALT 100 H Alkaline Phosphatase 206 H Total Protein 4.8 L Albumin 1.9 L Triglycerides Arterial Blood Glucose Arterial Blood Ionized Calcium Digoxin Crossmatch 01/02/21 01/02/21 01/02/21 00:12 00:45 03:05 WBC RBC Hgb Hct MCV MCHC RDW Plt Count Lymph % (Auto) [place] % (Auto) Eos % (Auto) Lymph # (Auto) [place] # (Auto) Eos # (Auto) Seg Neutrophils % Seg Neuts % (Manual) Lymphocytes % (Manual) Monocytes % (Manual) Seg Neutrophils # Seg Neutrophils # Man Lymphocytes # (Manual) Monocytes # (Manual) PT INR ABG pH POC ABG pCO2 POC ABG pO2 81.8 L ABG pO2 ABG HCO3 ABG O2 Saturation ABG Base Excess ABG Hemoglobin 8.0 L ABG Oxyhemoglobin ABG Sodium 129.8 L ABG Potassium 5.4 H ABG Chloride ABG Glucose 257 H Oxyhemoglobin Sodium 136 L Potassium 5.8 H Chloride 96.6 L Carbon Dioxide BUN 95 H Creatinine 11.2 H Glucose 238 H POC Glucose 223 H Lactic Acid Calcium Phosphorus Magnesium Total Bilirubin AST ALT Alkaline Phosphatase Total Protein Albumin Triglycerides Arterial Blood Glucose 257 H Arterial Blood Ionized Calcium 4.0 L Digoxin Crossmatch 0501/02/21 01/02/21 06:25 08:00 08:00 WBC 17.5 H RBC 2.31 L Hgb 6.7 L Hct 22.1 L D MCV 96 H MCHC 30 L RDW 18.4 H Plt Count Lymph % (Auto) [place] % (Auto) Eos % (Auto) Lymph # (Auto) [place] # (Auto) Eos # (Auto) Seg Neutrophils % Seg Neuts % (Manual) Lymphocytes % (Manual) Monocytes % (Manual) Seg Neutrophils # Seg Neutrophils # Man Lymphocytes # (Manual) Monocytes # (Manual) PT INR ABG pH POC ABG pCO2 POC ABG pO2 ABG pO2 ABG HCO3 ABG O2 Saturation ABG Base Excess ABG Hemoglobin ABG Oxyhemoglobin ABG Sodium ABG Potassium ABG Chloride ABG Glucose Oxyhemoglobin Sodium 134 L Potassium 5.3 H Chloride 92.9 L Carbon Dioxide BUN 101 H Creatinine 10.9 H Glucose 560 H* POC Glucose 239 H Lactic Acid Calcium 7.6 L Phosphorus 6.50 H Magnesium Total Bilirubin AST ALT Alkaline Phosphatase Total Protein Albumin Triglycerides Arterial Blood Glucose Arterial Blood Ionized Calcium Digoxin Crossmatch 01/02/21 01/02/21 01/02/21 11:26 15:00 17:57 WBC RBC Hgb Hct MCV MCHC RDW Plt Count Lymph % (Auto) [place] % (Auto) Eos % (Auto) Lymph # (Auto) [place] # (Auto) Eos # (Auto) Seg Neutrophils % Seg Neuts % (Manual) Lymphocytes % (Manual) Monocytes % (Manual) Seg Neutrophils # Seg Neutrophils # Man Lymphocytes # (Manual) Monocytes # (Manual) PT INR ABG pH POC ABG pCO2 POC ABG pO2 ABG pO2 ABG HCO3 ABG O2 Saturation ABG Base Excess ABG Hemoglobin ABG Oxyhemoglobin ABG Sodium ABG Potassium ABG Chloride ABG Glucose Oxyhemoglobin Sodium Potassium Chloride Carbon Dioxide BUN Creatinine Glucose 241 H POC Glucose 205 H 272 H Lactic Acid Calcium Phosphorus Magnesium Total Bilirubin AST ALT Alkaline Phosphatase Total Protein Albumin Triglycerides Arterial Blood Glucose Arterial Blood Ionized Calcium Digoxin Crossmatch 01/02/21 01/02/21 01/03/21 23:25 23:43 03:45 WBC RBC Hgb Hct MCV MCHC RDW Plt Count Lymph % (Auto) [place] % (Auto) Eos % (Auto) Lymph # (Auto) [place] # (Auto) Eos # (Auto) Seg Neutrophils % Seg Neuts % (Manual) Lymphocytes % (Manual) Monocytes % (Manual) Seg Neutrophils # Seg Neutrophils # Man Lymphocytes # (Manual) Monocytes # (Manual) PT INR ABG pH POC ABG pCO2 48.3 H POC ABG pO2 134.4 H 79.7 L ABG pO2 ABG HCO3 ABG O2 Saturation ABG Base Excess ABG Hemoglobin 7.7 L 8.6 L ABG Oxyhemoglobin ABG Sodium 131.8 L 130.4 L ABG Potassium ABG Chloride 97.0 L ABG Glucose 218 H 238 H Oxyhemoglobin Sodium Potassium Chloride Carbon Dioxide BUN Creatinine Glucose POC Glucose 218 H Lactic Acid Calcium Phosphorus Magnesium Total Bilirubin AST ALT Alkaline Phosphatase Total Protein Albumin Triglycerides Arterial Blood Glucose 218 H 238 H Arterial Blood Ionized Calcium 4.1 L 4.0 L Digoxin Crossmatch 01/03/21 01/03/21 01/03/21 04:37 04:37 05:39 WBC 15.2 H RBC 2.38 L Hgb 7.3 L Hct 21.6 L MCV MCHC RDW 16.6 H Plt Count Lymph % (Auto) [place] % (Auto) Eos % (Auto) Lymph # (Auto) [place] # (Auto) Eos # (Auto) Seg Neutrophils % Seg Neuts % (Manual) Lymphocytes % (Manual) Monocytes % (Manual) Seg Neutrophils # Seg Neutrophils # Man Lymphocytes # (Manual) Monocytes # (Manual) PT INR ABG pH POC ABG pCO2 POC ABG pO2 ABG pO2 ABG HCO3 ABG O2 Saturation ABG Base Excess ABG Hemoglobin ABG Oxyhemoglobin ABG Sodium ABG Potassium ABG Chloride ABG Glucose Oxyhemoglobin Sodium 136 L Potassium Chloride 94.5 L Carbon Dioxide BUN 69 H Creatinine 8.0 H Glucose 219 H POC Glucose 222 H Lactic Acid Calcium 7.8 L Phosphorus 4.80 H D Magnesium Total Bilirubin AST ALT Alkaline Phosphatase Total Protein Albumin Triglycerides Arterial Blood Glucose Arterial Blood Ionized Calcium Digoxin Crossmatch 01/03/21 01/03/21 01/03/21 11:29 18:49 23:37 WBC RBC Hgb Hct MCV MCHC RDW Plt Count Lymph % (Auto) [place] % (Auto) Eos % (Auto) Lymph # (Auto) [place] # (Auto) Eos # (Auto) Seg Neutrophils % Seg Neuts % (Manual) Lymphocytes % (Manual) Monocytes % (Manual) Seg Neutrophils # Seg Neutrophils # Man Lymphocytes # (Manual) Monocytes # (Manual) PT INR ABG pH POC ABG pCO2 POC ABG pO2 ABG pO2 ABG HCO3 ABG O2 Saturation ABG Base Excess ABG Hemoglobin ABG Oxyhemoglobin ABG Sodium ABG Potassium ABG Chloride ABG Glucose Oxyhemoglobin Sodium Potassium Chloride Carbon Dioxide BUN Creatinine Glucose POC Glucose 232 H 129 H 140 H Lactic Acid Calcium Phosphorus Magnesium Total Bilirubin AST ALT Alkaline Phosphatase Total Protein Albumin Triglycerides Arterial Blood Glucose Arterial Blood Ionized Calcium Digoxin Crossmatch 01/04/21 01/04/21 01/04/21 03:22 04:38 04:38 WBC 11.1 H RBC 2.89 L Hgb 8.9 L Hct 26.2 L MCV MCHC RDW 16.1 H Plt Count Lymph % (Auto) [place] % (Auto) Eos % (Auto) Lymph # (Auto) [place] # (Auto) Eos # (Auto) Seg Neutrophils % Seg Neuts % (Manual) Lymphocytes % (Manual) Monocytes % (Manual) Seg Neutrophils # Seg Neutrophils # Man Lymphocytes # (Manual) Monocytes # (Manual) PT INR ABG pH POC ABG pCO2 POC ABG pO2 82.3 L ABG pO2 ABG HCO3 ABG O2 Saturation ABG Base Excess ABG Hemoglobin 8.9 L ABG Oxyhemoglobin ABG Sodium 130.5 L ABG Potassium ABG Chloride ABG Glucose 124 H Oxyhemoglobin Sodium Potassium Chloride 95.5 L Carbon Dioxide BUN 87 H Creatinine 9.7 H Glucose 118 H POC Glucose Lactic Acid Calcium 7.7 L Phosphorus Magnesium Total Bilirubin AST ALT Alkaline Phosphatase Total Protein Albumin Triglycerides Arterial Blood Glucose 124 H Arterial Blood Ionized Calcium 3.5 L Digoxin Crossmatch 01/04/21 01/04/21 01/04/21 05:39 12:04 18:04 WBC RBC Hgb Hct MCV MCHC RDW Plt Count Lymph % (Auto) [place] % (Auto) Eos % (Auto) Lymph # (Auto) [place] # (Auto) Eos # (Auto) Seg Neutrophils % Seg Neuts % (Manual) Lymphocytes % (Manual) Monocytes % (Manual) Seg Neutrophils # Seg Neutrophils # Man Lymphocytes # (Manual) Monocytes # (Manual) PT INR ABG pH POC ABG pCO2 POC ABG pO2 ABG pO2 ABG HCO3 ABG O2 Saturation ABG Base Excess ABG Hemoglobin ABG Oxyhemoglobin ABG Sodium ABG Potassium ABG Chloride ABG Glucose Oxyhemoglobin Sodium Potassium Chloride Carbon Dioxide BUN Creatinine Glucose POC Glucose 134 H 125 H 131 H Lactic Acid Calcium Phosphorus Magnesium Total Bilirubin AST ALT Alkaline Phosphatase Total Protein Albumin Triglycerides Arterial Blood Glucose Arterial Blood Ionized Calcium Digoxin Crossmatch 01/04/21 01/05/21 01/05/21 23:41 03:23 04:49 WBC RBC Hgb Hct MCV MCHC RDW Plt Count Lymph % (Auto) [place] % (Auto) Eos % (Auto) Lymph # (Auto) [place] # (Auto) Eos # (Auto) Seg Neutrophils % Seg Neuts % (Manual) Lymphocytes % (Manual) Monocytes % (Manual) Seg Neutrophils # Seg Neutrophils # Man Lymphocytes # (Manual) Monocytes # (Manual) PT INR ABG pH POC ABG pCO2 POC ABG pO2 62.8 L ABG pO2 ABG HCO3 ABG O2 Saturation ABG Base Excess ABG Hemoglobin 9.5 L ABG Oxyhemoglobin 92.0 L ABG Sodium 130.1 L ABG Potassium ABG Chloride ABG Glucose 148 H Oxyhemoglobin Sodium Potassium Chloride 96.9 L Carbon Dioxide BUN 57 H Creatinine 6.7 H Glucose 135 H POC Glucose 132 H Lactic Acid Calcium 8.0 L Phosphorus Magnesium Total Bilirubin AST ALT Alkaline Phosphatase Total Protein Albumin Triglycerides Arterial Blood Glucose 148 H Arterial Blood Ionized Calcium 4.1 L Digoxin Crossmatch 01/05/21 01/05/21 01/05/21 05:04 11:48 12:39 WBC RBC 3.03 L Hgb 9.3 L Hct 27.6 L MCV MCHC RDW 16.5 H Plt Count Lymph % (Auto) [place] % (Auto) Eos % (Auto) Lymph # (Auto) [place] # (Auto) Eos # (Auto) Seg Neutrophils % Seg Neuts % (Manual) Lymphocytes % (Manual) Monocytes % (Manual) Seg Neutrophils # Seg Neutrophils # Man Lymphocytes # (Manual) Monocytes # (Manual) PT INR ABG pH POC ABG pCO2 POC ABG pO2 ABG pO2 ABG HCO3 ABG O2 Saturation ABG Base Excess ABG Hemoglobin ABG Oxyhemoglobin ABG Sodium ABG Potassium ABG Chloride ABG Glucose Oxyhemoglobin Sodium Potassium Chloride Carbon Dioxide BUN Creatinine Glucose POC Glucose 147 H 162 H Lactic Acid Calcium Phosphorus Magnesium Total Bilirubin AST ALT Alkaline Phosphatase Total Protein Albumin Triglycerides Arterial Blood Glucose Arterial Blood Ionized Calcium Digoxin Crossmatch 01/05/21 01/05/21 01/06/21 17:50 23:32 04:15 WBC RBC Hgb Hct MCV MCHC RDW Plt Count Lymph % (Auto) [place] % (Auto) Eos % (Auto) Lymph # (Auto) [place] # (Auto) Eos # (Auto) Seg Neutrophils % Seg Neuts % (Manual) Lymphocytes % (Manual) Monocytes % (Manual) Seg Neutrophils # Seg Neutrophils # Man Lymphocytes # (Manual) Monocytes # (Manual) PT INR ABG pH POC ABG pCO2 POC ABG pO2 ABG pO2 191.0 H ABG HCO3 ABG O2 Saturation 99.2 H ABG Base Excess ABG Hemoglobin 9.0 L ABG Oxyhemoglobin ABG Sodium ABG Potassium ABG Chloride ABG Glucose Oxyhemoglobin Sodium Potassium Chloride Carbon Dioxide BUN Creatinine Glucose POC Glucose 155 H 115 H Lactic Acid Calcium Phosphorus Magnesium Total Bilirubin AST ALT Alkaline Phosphatase Total Protein Albumin Triglycerides Arterial Blood Glucose Arterial Blood Ionized Calcium Digoxin Crossmatch 01/06/21 01/06/21 01/06/21 04:45 05:56 07:03 WBC RBC 2.95 L Hgb 9.1 L Hct 26.8 L MCV MCHC RDW 16.8 H Plt Count Lymph % (Auto) [place] % (Auto) Eos % (Auto) Lymph # (Auto) [place] # (Auto) Eos # (Auto) Seg Neutrophils % Seg Neuts % (Manual) Lymphocytes % (Manual) Monocytes % (Manual) Seg Neutrophils # Seg Neutrophils # Man Lymphocytes # (Manual) Monocytes # (Manual) PT INR ABG pH POC ABG pCO2 POC ABG pO2 ABG pO2 ABG HCO3 ABG O2 Saturation ABG Base Excess ABG Hemoglobin ABG Oxyhemoglobin ABG Sodium ABG Potassium ABG Chloride ABG Glucose Oxyhemoglobin Sodium 135 L Potassium Chloride 95.9 L Carbon Dioxide BUN 82 H Creatinine 8.7 H Glucose 127 H POC Glucose 136 H Lactic Acid Calcium 8.3 L Phosphorus Magnesium Total Bilirubin AST ALT Alkaline Phosphatase Total Protein Albumin Triglycerides Arterial Blood Glucose Arterial Blood Ionized Calcium Digoxin Crossmatch 01/06/21 01/06/21 01/06/21 07:10 11:04 13:38 WBC RBC Hgb Hct MCV MCHC RDW Plt Count Lymph % (Auto) [place] % (Auto) Eos % (Auto) Lymph # (Auto) [place] # (Auto) Eos # (Auto) Seg Neutrophils % Seg Neuts % (Manual) Lymphocytes % (Manual) Monocytes % (Manual) Seg Neutrophils # Seg Neutrophils # Man Lymphocytes # (Manual) Monocytes # (Manual) PT INR ABG pH POC ABG pCO2 POC ABG pO2 ABG pO2 ABG HCO3 ABG O2 Saturation ABG Base Excess ABG Hemoglobin ABG Oxyhemoglobin ABG Sodium ABG Potassium ABG Chloride ABG Glucose Oxyhemoglobin Sodium Potassium Chloride Carbon Dioxide BUN Creatinine Glucose POC Glucose 178 H 155 H Lactic Acid Calcium Phosphorus Magnesium Total Bilirubin AST ALT Alkaline Phosphatase Total Protein Albumin Triglycerides Arterial Blood Glucose Arterial Blood Ionized Calcium Digoxin Crossmatch See Detail 01/06/21 01/06/21 01/07/21 17:35 22:21 03:07 WBC RBC Hgb Hct MCV MCHC RDW Plt Count Lymph % (Auto) [place] % (Auto) Eos % (Auto) Lymph # (Auto) [place] # (Auto) Eos # (Auto) Seg Neutrophils % Seg Neuts % (Manual) Lymphocytes % (Manual) Monocytes % (Manual) Seg Neutrophils # Seg Neutrophils # Man Lymphocytes # (Manual) Monocytes # (Manual) PT INR ABG pH POC ABG pCO2 POC ABG pO2 ABG pO2 ABG HCO3 ABG O2 Saturation ABG Base Excess ABG Hemoglobin 11.9 L ABG Oxyhemoglobin ABG Sodium 135.6 L ABG Potassium ABG Chloride ABG Glucose 181 H Oxyhemoglobin Sodium Potassium Chloride Carbon Dioxide BUN Creatinine Glucose POC Glucose 138 H 202 H Lactic Acid Calcium Phosphorus Magnesium Total Bilirubin AST ALT Alkaline Phosphatase Total Protein Albumin Triglycerides Arterial Blood Glucose 181 H Arterial Blood Ionized Calcium 4.3 L Digoxin Crossmatch 01/07/21 01/07/21 01/07/21 04:50 05:21 08:37 WBC 12.4 H RBC Hgb 11.1 L Hct 33.3 L D MCV MCHC RDW 17.0 H Plt Count Lymph % (Auto) 3.2 L [place] % (Auto) 9.4 H Eos % (Auto) Lymph # (Auto) 0.4 L [place] # (Auto) 1.2 H Eos # (Auto) Seg Neutrophils % 86.6 H Seg Neuts % (Manual) Lymphocytes % (Manual) Monocytes % (Manual) Seg Neutrophils # 10.7 H Seg Neutrophils # Man Lymphocytes # (Manual) Monocytes # (Manual) PT INR ABG pH POC ABG pCO2 POC ABG pO2 ABG pO2 ABG HCO3 ABG O2 Saturation ABG Base Excess ABG Hemoglobin ABG Oxyhemoglobin ABG Sodium ABG Potassium ABG Chloride ABG Glucose Oxyhemoglobin Sodium Potassium Chloride Carbon Dioxide BUN 60 H Creatinine 6.3 H Glucose 154 H POC Glucose 177 H Lactic Acid Calcium 8.3 L Phosphorus Magnesium Total Bilirubin AST ALT Alkaline Phosphatase Total Protein Albumin Triglycerides Arterial Blood Glucose Arterial Blood Ionized Calcium Digoxin Crossmatch 01/07/21 01/07/21 01/07/21 11:21 12:19 17:11 WBC RBC Hgb Hct MCV MCHC RDW Plt Count Lymph % (Auto) [place] % (Auto) Eos % (Auto) Lymph # (Auto) [place] # (Auto) Eos # (Auto) Seg Neutrophils % Seg Neuts % (Manual) Lymphocytes % (Manual) Monocytes % (Manual) Seg Neutrophils # Seg Neutrophils # Man Lymphocytes # (Manual) Monocytes # (Manual) PT INR ABG pH POC ABG pCO2 POC ABG pO2 ABG pO2 ABG HCO3 ABG O2 Saturation ABG Base Excess ABG Hemoglobin ABG Oxyhemoglobin ABG Sodium ABG Potassium ABG Chloride ABG Glucose Oxyhemoglobin Sodium Potassium Chloride Carbon Dioxide BUN Creatinine Glucose POC Glucose 144 H 137 H 119 H Lactic Acid Calcium Phosphorus Magnesium Total Bilirubin AST ALT Alkaline Phosphatase Total Protein Albumin Triglycerides Arterial Blood Glucose Arterial Blood Ionized Calcium Digoxin Crossmatch 01/07/21 01/07/21 01/08/21 17:14 23:39 04:34 WBC RBC Hgb Hct MCV MCHC RDW Plt Count Lymph % (Auto) [place] % (Auto) Eos % (Auto) Lymph # (Auto) [place] # (Auto) Eos # (Auto) Seg Neutrophils % Seg Neuts % (Manual) Lymphocytes % (Manual) Monocytes % (Manual) Seg Neutrophils # Seg Neutrophils # Man Lymphocytes # (Manual) Monocytes # (Manual) PT INR ABG pH 7.345 L POC ABG pCO2 POC ABG pO2 ABG pO2 67.4 L ABG HCO3 ABG O2 Saturation 94.3 L ABG Base Excess -3.9 L ABG Hemoglobin 8.9 L ABG Oxyhemoglobin ABG Sodium ABG Potassium ABG Chloride ABG Glucose Oxyhemoglobin 92.3 L Sodium Potassium Chloride Carbon Dioxide 20 L BUN 93 H Creatinine 8.8 H Glucose 120 H POC Glucose 129 H Lactic Acid Calcium Phosphorus Magnesium Total Bilirubin AST ALT Alkaline Phosphatase 133 H Total Protein 5.4 L Albumin 1.9 L Triglycerides Arterial Blood Glucose Arterial Blood Ionized Calcium Digoxin Crossmatch 05/16/21 05/16/21 05/16/21 05:26 11:38 17:19 WBC RBC Hgb Hct MCV MCHC RDW Plt Count Lymph % (Auto) [place] % (Auto) Eos % (Auto) Lymph # (Auto) [place] # (Auto) Eos # (Auto) Seg Neutrophils % Seg Neuts % (Manual) Lymphocytes % (Manual) Monocytes % (Manual) Seg Neutrophils # Seg Neutrophils # Man Lymphocytes # (Manual) Monocytes # (Manual) PT INR ABG pH POC ABG pCO2 POC ABG pO2 ABG pO2 ABG HCO3 ABG O2 Saturation ABG Base Excess ABG Hemoglobin ABG Oxyhemoglobin ABG Sodium ABG Potassium ABG Chloride ABG Glucose Oxyhemoglobin Sodium Potassium Chloride Carbon Dioxide BUN Creatinine Glucose POC Glucose 125 H 146 H 136 H Lactic Acid Calcium Phosphorus Magnesium Total Bilirubin AST ALT Alkaline Phosphatase Total Protein Albumin Triglycerides Arterial Blood Glucose Arterial Blood Ionized Calcium Digoxin Crossmatch 01/08/21 01/09/21 01/09/21 23:52 05:13 05:21 WBC RBC Hgb Hct MCV MCHC RDW Plt Count Lymph % (Auto) [place] % (Auto) Eos % (Auto) Lymph # (Auto) [place] # (Auto) Eos # (Auto) Seg Neutrophils % Seg Neuts % (Manual) Lymphocytes % (Manual) Monocytes % (Manual) Seg Neutrophils # Seg Neutrophils # Man Lymphocytes # (Manual) Monocytes # (Manual) PT INR ABG pH POC ABG pCO2 POC ABG pO2 ABG pO2 ABG HCO3 ABG O2 Saturation ABG Base Excess ABG Hemoglobin ABG Oxyhemoglobin ABG Sodium ABG Potassium ABG Chloride ABG Glucose Oxyhemoglobin Sodium Potassium Chloride Carbon Dioxide 16 L BUN 123 H Creatinine 10.8 H Glucose 145 H POC Glucose 143 H 144 H Lactic Acid Calcium Phosphorus 5.00 H D Magnesium 2.40 H Total Bilirubin AST ALT Alkaline Phosphatase Total Protein Albumin Triglycerides Arterial Blood Glucose Arterial Blood Ionized Calcium Digoxin Crossmatch 01/09/21 01/09/21 01/09/21 12:08 17:20 23:56 WBC RBC Hgb Hct MCV MCHC RDW Plt Count Lymph % (Auto) [place] % (Auto) Eos % (Auto) Lymph # (Auto) [place] # (Auto) Eos # (Auto) Seg Neutrophils % Seg Neuts % (Manual) Lymphocytes % (Manual) Monocytes % (Manual) Seg Neutrophils # Seg Neutrophils # Man Lymphocytes # (Manual) Monocytes # (Manual) PT INR ABG pH POC ABG pCO2 POC ABG pO2 ABG pO2 ABG HCO3 ABG O2 Saturation ABG Base Excess ABG Hemoglobin ABG Oxyhemoglobin ABG Sodium ABG Potassium ABG Chloride ABG Glucose Oxyhemoglobin Sodium Potassium Chloride Carbon Dioxide BUN Creatinine Glucose POC Glucose 153 H 160 H 158 H Lactic Acid Calcium Phosphorus Magnesium Total Bilirubin AST ALT Alkaline Phosphatase Total Protein Albumin Triglycerides Arterial Blood Glucose Arterial Blood Ionized Calcium Digoxin Crossmatch 01/10/21 01/10/21 01/10/21 04:52 05:44 07:41 WBC RBC Hgb Hct MCV MCHC RDW Plt Count Lymph % (Auto) [place] % (Auto) Eos % (Auto) Lymph # (Auto) [place] # (Auto) Eos # (Auto) Seg Neutrophils % Seg Neuts % (Manual) Lymphocytes % (Manual) Monocytes % (Manual) Seg Neutrophils # Seg Neutrophils # Man Lymphocytes # (Manual) Monocytes # (Manual) PT INR ABG pH POC ABG pCO2 POC ABG pO2 ABG pO2 ABG HCO3 ABG O2 Saturation ABG Base Excess ABG Hemoglobin ABG Oxyhemoglobin ABG Sodium ABG Potassium ABG Chloride ABG Glucose Oxyhemoglobin Sodium 135 L Potassium 3.5 L D Chloride 95.0 L Carbon Dioxide 21 L BUN 93 H Creatinine 8.3 H Glucose 127 H POC Glucose 135 H 157 H Lactic Acid Calcium Phosphorus Magnesium Total Bilirubin AST ALT Alkaline Phosphatase Total Protein Albumin Triglycerides Arterial Blood Glucose Arterial Blood Ionized Calcium Digoxin Crossmatch 01/10/21 01/10/21 01/10/21 09:26 12:03 17:44 WBC 18.2 H RBC 3.14 L Hgb 9.7 L Hct 28.2 L MCV MCHC RDW 16.5 H Plt Count Lymph % (Auto) [place] % (Auto) Eos % (Auto) Lymph # (Auto) [place] # (Auto) Eos # (Auto) Seg Neutrophils % Seg Neuts % (Manual) 95.0 H Lymphocytes % (Manual) 3.0 L Monocytes % (Manual) Seg Neutrophils # Seg Neutrophils # Man 17.3 H Lymphocytes # (Manual) 0.5 L Monocytes # (Manual) PT INR ABG pH POC ABG pCO2 POC ABG pO2 ABG pO2 ABG HCO3 ABG O2 Saturation ABG Base Excess ABG Hemoglobin ABG Oxyhemoglobin ABG Sodium ABG Potassium ABG Chloride ABG Glucose Oxyhemoglobin Sodium Potassium Chloride Carbon Dioxide BUN Creatinine Glucose POC Glucose 163 H 171 H Lactic Acid Calcium Phosphorus Magnesium Total Bilirubin AST ALT Alkaline Phosphatase Total Protein Albumin Triglycerides Arterial Blood Glucose Arterial Blood Ionized Calcium Digoxin Crossmatch 01/10/21 01/11/21 01/11/21 23:50 05:18 05:18 WBC RBC Hgb Hct MCV MCHC RDW Plt Count Lymph % (Auto) [place] % (Auto) Eos % (Auto) Lymph # (Auto) [place] # (Auto) Eos # (Auto) Seg Neutrophils % Seg Neuts % (Manual) Lymphocytes % (Manual) Monocytes % (Manual) Seg Neutrophils # Seg Neutrophils # Man Lymphocytes # (Manual) Monocytes # (Manual) PT INR ABG pH POC ABG pCO2 POC ABG pO2 ABG pO2 ABG HCO3 ABG O2 Saturation ABG Base Excess ABG Hemoglobin ABG Oxyhemoglobin ABG Sodium ABG Potassium ABG Chloride ABG Glucose Oxyhemoglobin Sodium 136 L Potassium Chloride 94.6 L Carbon Dioxide 19 L BUN 145 H Creatinine 10.6 H Glucose 152 H POC Glucose 151 H Lactic Acid Calcium Phosphorus 6.00 H D Magnesium Total Bilirubin AST ALT Alkaline Phosphatase Total Protein Albumin Triglycerides Arterial Blood Glucose Arterial Blood Ionized Calcium Digoxin 0.8 L Crossmatch 01/11/21 01/11/21 01/11/21 05:18 05:19 11:28 WBC 17.4 H RBC 3.34 L Hgb 10.2 L Hct 29.7 L MCV MCHC RDW 15.9 H Plt Count Lymph % (Auto) [place] % (Auto) Eos % (Auto) Lymph # (Auto) [place] # (Auto) Eos # (Auto) Seg Neutrophils % Seg Neuts % (Manual) Lymphocytes % (Manual) Monocytes % (Manual) Seg Neutrophils # Seg Neutrophils # Man Lymphocytes # (Manual) Monocytes # (Manual) PT INR ABG pH POC ABG pCO2 POC ABG pO2 ABG pO2 ABG HCO3 ABG O2 Saturation ABG Base Excess ABG Hemoglobin ABG Oxyhemoglobin ABG Sodium ABG Potassium ABG Chloride ABG Glucose Oxyhemoglobin Sodium Potassium Chloride Carbon Dioxide BUN Creatinine Glucose POC Glucose 149 H 178 H Lactic Acid Calcium Phosphorus Magnesium Total Bilirubin AST ALT Alkaline Phosphatase Total Protein Albumin Triglycerides Arterial Blood Glucose Arterial Blood Ionized Calcium Digoxin Crossmatch 01/11/21 01/11/21 01/12/21 17:31 23:14 05:18 WBC RBC Hgb Hct MCV MCHC RDW Plt Count Lymph % (Auto) [place] % (Auto) Eos % (Auto) Lymph # (Auto) [place] # (Auto) Eos # (Auto) Seg Neutrophils % Seg Neuts % (Manual) Lymphocytes % (Manual) Monocytes % (Manual) Seg Neutrophils # Seg Neutrophils # Man Lymphocytes # (Manual) Monocytes # (Manual) PT INR ABG pH POC ABG pCO2 POC ABG pO2 ABG pO2 ABG HCO3 ABG O2 Saturation ABG Base Excess ABG Hemoglobin ABG Oxyhemoglobin ABG Sodium ABG Potassium ABG Chloride ABG Glucose Oxyhemoglobin Sodium Potassium Chloride Carbon Dioxide BUN Creatinine Glucose POC Glucose 158 H 145 H 148 H Lactic Acid Calcium Phosphorus Magnesium Total Bilirubin AST ALT Alkaline Phosphatase Total Protein Albumin Triglycerides Arterial Blood Glucose Arterial Blood Ionized Calcium Digoxin Crossmatch 01/12/21 01/12/21 01/12/21 06:50 10:45 13:34 WBC RBC Hgb Hct MCV MCHC RDW Plt Count Lymph % (Auto) [place] % (Auto) Eos % (Auto) Lymph # (Auto) [place] # (Auto) Eos # (Auto) Seg Neutrophils % Seg Neuts % (Manual) Lymphocytes % (Manual) Monocytes % (Manual) Seg Neutrophils # Seg Neutrophils # Man Lymphocytes # (Manual) Monocytes # (Manual) PT INR ABG pH POC ABG pCO2 POC ABG pO2 ABG pO2 ABG HCO3 ABG O2 Saturation ABG Base Excess ABG Hemoglobin ABG Oxyhemoglobin ABG Sodium ABG Potassium ABG Chloride ABG Glucose Oxyhemoglobin Sodium Potassium 2.9 L* D Chloride 94.8 L Carbon Dioxide BUN 102 H Creatinine 8.3 H Glucose 139 H POC Glucose 151 H 134 H Lactic Acid Calcium 8.1 L Phosphorus 5.00 H Magnesium Total Bilirubin AST ALT Alkaline Phosphatase Total Protein Albumin Triglycerides Arterial Blood Glucose Arterial Blood Ionized Calcium Digoxin Crossmatch 01/12/21 01/12/21 01/13/21 16:59 23:06 03:45 WBC RBC Hgb Hct MCV MCHC RDW Plt Count Lymph % (Auto) [place] % (Auto) Eos % (Auto) Lymph # (Auto) [place] # (Auto) Eos # (Auto) Seg Neutrophils % Seg Neuts % (Manual) Lymphocytes % (Manual) Monocytes % (Manual) Seg Neutrophils # Seg Neutrophils # Man Lymphocytes # (Manual) Monocytes # (Manual) PT INR ABG pH POC ABG pCO2 POC ABG pO2 ABG pO2 ABG HCO3 ABG O2 Saturation ABG Base Excess ABG Hemoglobin ABG Oxyhemoglobin ABG Sodium ABG Potassium ABG Chloride ABG Glucose Oxyhemoglobin Sodium 136 L Potassium 3.4 L Chloride 92.6 L Carbon Dioxide BUN 134 H Creatinine 10.4 H Glucose 126 H POC Glucose 108 H 135 H Lactic Acid Calcium 8.3 L Phosphorus 5.60 H Magnesium 1.50 L Total Bilirubin AST ALT Alkaline Phosphatase Total Protein Albumin Triglycerides Arterial Blood Glucose Arterial Blood Ionized Calcium Digoxin Crossmatch 01/13/21 01/13/21 01/13/21 03:45 05:55 11:59 WBC 17.6 H RBC 3.33 L Hgb 10.2 L Hct 29.5 L MCV MCHC 35 H RDW 15.5 H Plt Count Lymph % (Auto) 4.4 L [place] % (Auto) 10.3 H Eos % (Auto) Lymph # (Auto) 0.8 L [place] # (Auto) 1.8 H Eos # (Auto) Seg Neutrophils % 84.2 H Seg Neuts % (Manual) Lymphocytes % (Manual) Monocytes % (Manual) Seg Neutrophils # 14.8 H Seg Neutrophils # Man Lymphocytes # (Manual) Monocytes # (Manual) PT INR ABG pH POC ABG pCO2 POC ABG pO2 ABG pO2 ABG HCO3 ABG O2 Saturation ABG Base Excess ABG Hemoglobin ABG Oxyhemoglobin ABG Sodium ABG Potassium ABG Chloride ABG Glucose Oxyhemoglobin Sodium Potassium Chloride Carbon Dioxide BUN Creatinine Glucose POC Glucose 134 H 141 H Lactic Acid Calcium Phosphorus Magnesium Total Bilirubin AST ALT Alkaline Phosphatase Total Protein Albumin Triglycerides Arterial Blood Glucose Arterial Blood Ionized Calcium Digoxin Crossmatch 01/13/21 01/14/21 01/14/21 23:09 05:39 05:57 WBC RBC Hgb Hct MCV MCHC RDW Plt Count Lymph % (Auto) [place] % (Auto) Eos % (Auto) Lymph # (Auto) [place] # (Auto) Eos # (Auto) Seg Neutrophils % Seg Neuts % (Manual) Lymphocytes % (Manual) Monocytes % (Manual) Seg Neutrophils # Seg Neutrophils # Man Lymphocytes # (Manual) Monocytes # (Manual) PT INR ABG pH POC ABG pCO2 POC ABG pO2 ABG pO2 ABG HCO3 ABG O2 Saturation ABG Base Excess ABG Hemoglobin ABG Oxyhemoglobin ABG Sodium ABG Potassium ABG Chloride ABG Glucose Oxyhemoglobin Sodium Potassium Chloride 97.6 L Carbon Dioxide BUN 81 H Creatinine 7.6 H Glucose 193 H POC Glucose 106 H 190 H Lactic Acid Calcium 8.2 L Phosphorus 4.60 H Magnesium Total Bilirubin AST ALT Alkaline Phosphatase Total Protein Albumin Triglycerides Arterial Blood Glucose Arterial Blood Ionized Calcium Digoxin Crossmatch 01/14/21 01/14/21 01/14/21 10:00 16:56 16:59 WBC 17.0 H RBC 3.10 L Hgb 9.6 L Hct 27.4 L MCV MCHC 35 H RDW 15.6 H Plt Count Lymph % (Auto) [place] % (Auto) Eos % (Auto) Lymph # (Auto) [place] # (Auto) Eos # (Auto) Seg Neutrophils % Seg Neuts % (Manual) Lymphocytes % (Manual) Monocytes % (Manual) Seg Neutrophils # Seg Neutrophils # Man Lymphocytes # (Manual) Monocytes # (Manual) PT INR ABG pH POC ABG pCO2 POC ABG pO2 ABG pO2 ABG HCO3 ABG O2 Saturation ABG Base Excess ABG Hemoglobin ABG Oxyhemoglobin ABG Sodium ABG Potassium ABG Chloride ABG Glucose Oxyhemoglobin Sodium Potassium Chloride Carbon Dioxide BUN Creatinine Glucose POC Glucose 37 L 34 L Lactic Acid Calcium Phosphorus Magnesium Total Bilirubin AST ALT Alkaline Phosphatase Total Protein Albumin Triglycerides Arterial Blood Glucose Arterial Blood Ionized Calcium Digoxin Crossmatch 01/14/21 01/14/21 01/14/21 17:02 18:34 23:17 WBC RBC Hgb Hct MCV MCHC RDW Plt Count Lymph % (Auto) [place] % (Auto) Eos % (Auto) Lymph # (Auto) [place] # (Auto) Eos # (Auto) Seg Neutrophils % Seg Neuts % (Manual) Lymphocytes % (Manual) Monocytes % (Manual) Seg Neutrophils # Seg Neutrophils # Man Lymphocytes # (Manual) Monocytes # (Manual) PT INR ABG pH POC ABG pCO2 POC ABG pO2 ABG pO2 ABG HCO3 ABG O2 Saturation ABG Base Excess ABG Hemoglobin ABG Oxyhemoglobin ABG Sodium ABG Potassium ABG Chloride ABG Glucose Oxyhemoglobin Sodium Potassium Chloride Carbon Dioxide BUN Creatinine Glucose POC Glucose 35 L 143 H 53 L Lactic Acid Calcium Phosphorus Magnesium Total Bilirubin AST ALT Alkaline Phosphatase Total Protein Albumin Triglycerides Arterial Blood Glucose Arterial Blood Ionized Calcium Digoxin Crossmatch 01/15/21 01/15/21 01/15/21 00:34 04:00 04:00 WBC 15.9 H RBC 3.02 L Hgb 9.3 L Hct 27.3 L MCV MCHC RDW 15.6 H Plt Count Lymph % (Auto) [place] % (Auto) Eos % (Auto) Lymph # (Auto) [place] # (Auto) Eos # (Auto) Seg Neutrophils % Seg Neuts % (Manual) Lymphocytes % (Manual) Monocytes % (Manual) Seg Neutrophils # Seg Neutrophils # Man Lymphocytes # (Manual) Monocytes # (Manual) PT INR ABG pH POC ABG pCO2 POC ABG pO2 ABG pO2 ABG HCO3 ABG O2 Saturation ABG Base Excess ABG Hemoglobin ABG Oxyhemoglobin ABG Sodium ABG Potassium ABG Chloride ABG Glucose Oxyhemoglobin Sodium 136 L Potassium Chloride 94.3 L Carbon Dioxide BUN 117 H Creatinine 9.9 H Glucose 217 H POC Glucose 181 H Lactic Acid Calcium 8.3 L Phosphorus Magnesium Total Bilirubin AST ALT Alkaline Phosphatase Total Protein Albumin Triglycerides Arterial Blood Glucose Arterial Blood Ionized Calcium Digoxin Crossmatch 01/15/21 01/15/21 01/15/21 05:29 11:51 23:13 WBC RBC Hgb Hct MCV MCHC RDW Plt Count Lymph % (Auto) [place] % (Auto) Eos % (Auto) Lymph # (Auto) [place] # (Auto) Eos # (Auto) Seg Neutrophils % Seg Neuts % (Manual) Lymphocytes % (Manual) Monocytes % (Manual) Seg Neutrophils # Seg Neutrophils # Man Lymphocytes # (Manual) Monocytes # (Manual) PT INR ABG pH POC ABG pCO2 POC ABG pO2 ABG pO2 ABG HCO3 ABG O2 Saturation ABG Base Excess ABG Hemoglobin ABG Oxyhemoglobin ABG Sodium ABG Potassium ABG Chloride ABG Glucose Oxyhemoglobin Sodium Potassium Chloride Carbon Dioxide BUN Creatinine Glucose POC Glucose 221 H 62 L 154 H Lactic Acid Calcium Phosphorus Magnesium Total Bilirubin AST ALT Alkaline Phosphatase Total Protein Albumin Triglycerides Arterial Blood Glucose Arterial Blood Ionized Calcium Digoxin Crossmatch 01/16/21 01/16/21 01/16/21 05:04 06:44 06:44 WBC 14.8 H RBC 2.76 L Hgb 8.2 L Hct 24.8 L MCV MCHC RDW 15.6 H Plt Count Lymph % (Auto) [place] % (Auto) Eos % (Auto) Lymph # (Auto) [place] # (Auto) Eos # (Auto) Seg Neutrophils % Seg Neuts % (Manual) Lymphocytes % (Manual) Monocytes % (Manual) Seg Neutrophils # Seg Neutrophils # Man Lymphocytes # (Manual) Monocytes # (Manual) PT INR ABG pH POC ABG pCO2 POC ABG pO2 ABG pO2 ABG HCO3 ABG O2 Saturation ABG Base Excess ABG Hemoglobin ABG Oxyhemoglobin ABG Sodium ABG Potassium ABG Chloride ABG Glucose Oxyhemoglobin Sodium 133 L Potassium Chloride 92.3 L Carbon Dioxide 20 L BUN 160 H Creatinine 12.1 H Glucose 177 H POC Glucose 168 H Lactic Acid Calcium 8.1 L Phosphorus 5.50 H Magnesium 2.50 H Total Bilirubin AST ALT Alkaline Phosphatase Total Protein Albumin Triglycerides Arterial Blood Glucose Arterial Blood Ionized Calcium Digoxin Crossmatch 01/16/21 01/17/21 01/17/21 23:20 05:14 05:14 WBC 12.7 H RBC 2.75 L Hgb 8.5 L Hct 24.6 L MCV MCHC 35 H RDW 15.4 H Plt Count Lymph % (Auto) [place] % (Auto) Eos % (Auto) Lymph # (Auto) [place] # (Auto) Eos # (Auto) Seg Neutrophils % Seg Neuts % (Manual) Lymphocytes % (Manual) Monocytes % (Manual) Seg Neutrophils # Seg Neutrophils # Man Lymphocytes # (Manual) Monocytes # (Manual) PT INR ABG pH POC ABG pCO2 POC ABG pO2 ABG pO2 ABG HCO3 ABG O2 Saturation ABG Base Excess ABG Hemoglobin ABG Oxyhemoglobin ABG Sodium ABG Potassium ABG Chloride ABG Glucose Oxyhemoglobin Sodium Potassium Chloride 97.9 L Carbon Dioxide BUN 84 H Creatinine 7.8 H Glucose 176 H POC Glucose 153 H Lactic Acid Calcium 8.0 L Phosphorus Magnesium Total Bilirubin AST ALT Alkaline Phosphatase Total Protein Albumin Triglycerides Arterial Blood Glucose Arterial Blood Ionized Calcium Digoxin Crossmatch 01/17/21 01/17/21 01/18/21 05:33 11:58 00:07 WBC RBC Hgb Hct MCV MCHC RDW Plt Count Lymph % (Auto) [place] % (Auto) Eos % (Auto) Lymph # (Auto) [place] # (Auto) Eos # (Auto) Seg Neutrophils % Seg Neuts % (Manual) Lymphocytes % (Manual) Monocytes % (Manual) Seg Neutrophils # Seg Neutrophils # Man Lymphocytes # (Manual) Monocytes # (Manual) PT INR ABG pH POC ABG pCO2 POC ABG pO2 ABG pO2 ABG HCO3 ABG O2 Saturation ABG Base Excess ABG Hemoglobin ABG Oxyhemoglobin ABG Sodium ABG Potassium ABG Chloride ABG Glucose Oxyhemoglobin Sodium Potassium Chloride Carbon Dioxide BUN Creatinine Glucose POC Glucose 162 H 64 L 146 H Lactic Acid Calcium Phosphorus Magnesium Total Bilirubin AST ALT Alkaline Phosphatase Total Protein Albumin Triglycerides Arterial Blood Glucose Arterial Blood Ionized Calcium Digoxin Crossmatch 01/18/21 01/18/21 01/18/21 04:19 04:19 06:15 WBC 15.6 H RBC 3.00 L Hgb 9.2 L Hct 26.8 L MCV MCHC 35 H RDW 15.6 H Plt Count Lymph % (Auto) [place] % (Auto) Eos % (Auto) Lymph # (Auto) [place] # (Auto) Eos # (Auto) Seg Neutrophils % Seg Neuts % (Manual) Lymphocytes % (Manual) Monocytes % (Manual) Seg Neutrophils # Seg Neutrophils # Man Lymphocytes # (Manual) Monocytes # (Manual) PT INR ABG pH POC ABG pCO2 POC ABG pO2 ABG pO2 ABG HCO3 ABG O2 Saturation ABG Base Excess ABG Hemoglobin ABG Oxyhemoglobin ABG Sodium ABG Potassium ABG Chloride ABG Glucose Oxyhemoglobin Sodium Potassium Chloride 96.2 L Carbon Dioxide BUN 117 H Creatinine 10.0 H Glucose 165 H POC Glucose 189 H Lactic Acid Calcium Phosphorus 4.70 H D Magnesium Total Bilirubin AST ALT Alkaline Phosphatase Total Protein Albumin Triglycerides Arterial Blood Glucose Arterial Blood Ionized Calcium Digoxin Crossmatch 01/18/21 01/18/21 01/18/21 11:53 13:44 15:08 WBC RBC Hgb Hct MCV MCHC RDW Plt Count Lymph % (Auto) [place] % (Auto) Eos % (Auto) Lymph # (Auto) [place] # (Auto) Eos # (Auto) Seg Neutrophils % Seg Neuts % (Manual) Lymphocytes % (Manual) Monocytes % (Manual) Seg Neutrophils # Seg Neutrophils # Man Lymphocytes # (Manual) Monocytes # (Manual) PT INR ABG pH POC ABG pCO2 POC ABG pO2 ABG pO2 ABG HCO3 ABG O2 Saturation ABG Base Excess ABG Hemoglobin ABG Oxyhemoglobin ABG Sodium ABG Potassium ABG Chloride ABG Glucose Oxyhemoglobin Sodium Potassium Chloride Carbon Dioxide BUN Creatinine Glucose POC Glucose 69 L 50 L 56 L Lactic Acid Calcium Phosphorus Magnesium Total Bilirubin AST ALT Alkaline Phosphatase Total Protein Albumin Triglycerides Arterial Blood Glucose Arterial Blood Ionized Calcium Digoxin Crossmatch 01/18/21 01/19/21 01/19/21 17:50 04:55 08:56 WBC 12.7 H RBC 2.89 L Hgb 8.7 L Hct 25.6 L MCV MCHC RDW 15.5 H Plt Count Lymph % (Auto) [place] % (Auto) Eos % (Auto) Lymph # (Auto) [place] # (Auto) Eos # (Auto) Seg Neutrophils % Seg Neuts % (Manual) Lymphocytes % (Manual) Monocytes % (Manual) Seg Neutrophils # Seg Neutrophils # Man Lymphocytes # (Manual) Monocytes # (Manual) PT INR ABG pH POC ABG pCO2 POC ABG pO2 ABG pO2 ABG HCO3 ABG O2 Saturation ABG Base Excess ABG Hemoglobin ABG Oxyhemoglobin ABG Sodium ABG Potassium ABG Chloride ABG Glucose Oxyhemoglobin Sodium Potassium Chloride Carbon Dioxide BUN Creatinine Glucose POC Glucose 137 H 120 H Lactic Acid Calcium Phosphorus Magnesium Total Bilirubin AST ALT Alkaline Phosphatase Total Protein Albumin Triglycerides Arterial Blood Glucose Arterial Blood Ionized Calcium Digoxin Crossmatch 01/19/21 01/19/21 01/19/21 08:56 11:33 17:32 WBC RBC Hgb Hct MCV MCHC RDW Plt Count Lymph % (Auto) [place] % (Auto) Eos % (Auto) Lymph # (Auto) [place] # (Auto) Eos # (Auto) Seg Neutrophils % Seg Neuts % (Manual) Lymphocytes % (Manual) Monocytes % (Manual) Seg Neutrophils # Seg Neutrophils # Man Lymphocytes # (Manual) Monocytes # (Manual) PT INR ABG pH POC ABG pCO2 POC ABG pO2 ABG pO2 ABG HCO3 ABG O2 Saturation ABG Base Excess ABG Hemoglobin ABG Oxyhemoglobin ABG Sodium ABG Potassium ABG Chloride ABG Glucose Oxyhemoglobin Sodium Potassium Chloride Carbon Dioxide BUN 66 H Creatinine 7.7 H Glucose 119 H POC Glucose 160 H 125 H Lactic Acid Calcium 8.3 L Phosphorus Magnesium Total Bilirubin AST ALT Alkaline Phosphatase Total Protein Albumin Triglycerides Arterial Blood Glucose Arterial Blood Ionized Calcium Digoxin Crossmatch 01/19/21 01/20/21 01/20/21 23:30 03:35 03:35 WBC 12.0 H RBC 2.62 L Hgb 8.3 L Hct 23.2 L MCV MCHC 36 H RDW Plt Count Lymph % (Auto) [place] % (Auto) Eos % (Auto) Lymph # (Auto) [place] # (Auto) Eos # (Auto) Seg Neutrophils % Seg Neuts % (Manual) Lymphocytes % (Manual) Monocytes % (Manual) Seg Neutrophils # Seg Neutrophils # Man Lymphocytes # (Manual) Monocytes # (Manual) PT INR ABG pH POC ABG pCO2 POC ABG pO2 ABG pO2 ABG HCO3 ABG O2 Saturation ABG Base Excess ABG Hemoglobin ABG Oxyhemoglobin ABG Sodium ABG Potassium ABG Chloride ABG Glucose Oxyhemoglobin Sodium Potassium Chloride Carbon Dioxide BUN 46 H Creatinine 5.9 H Glucose 128 H POC Glucose 127 H Lactic Acid Calcium Phosphorus Magnesium Total Bilirubin AST ALT Alkaline Phosphatase Total Protein Albumin Triglycerides Arterial Blood Glucose Arterial Blood Ionized Calcium Digoxin Crossmatch 01/20/21 01/20/21 01/20/21 06:19 11:55 18:00 WBC RBC Hgb Hct MCV MCHC RDW Plt Count Lymph % (Auto) [place] % (Auto) Eos % (Auto) Lymph # (Auto) [place] # (Auto) Eos # (Auto) Seg Neutrophils % Seg Neuts % (Manual) Lymphocytes % (Manual) Monocytes % (Manual) Seg Neutrophils # Seg Neutrophils # Man Lymphocytes # (Manual) Monocytes # (Manual) PT INR ABG pH POC ABG pCO2 POC ABG pO2 ABG pO2 ABG HCO3 ABG O2 Saturation ABG Base Excess ABG Hemoglobin ABG Oxyhemoglobin ABG Sodium ABG Potassium ABG Chloride ABG Glucose Oxyhemoglobin Sodium Potassium Chloride Carbon Dioxide BUN Creatinine Glucose POC Glucose 119 H 128 H 115 H Lactic Acid Calcium Phosphorus Magnesium Total Bilirubin AST ALT Alkaline Phosphatase Total Protein Albumin Triglycerides Arterial Blood Glucose Arterial Blood Ionized Calcium Digoxin Crossmatch 01/20/21 01/21/21 01/21/21 23:26 04:39 05:27 WBC RBC Hgb Hct MCV MCHC RDW Plt Count Lymph % (Auto) [place] % (Auto) Eos % (Auto) Lymph # (Auto) [place] # (Auto) Eos # (Auto) Seg Neutrophils % Seg Neuts % (Manual) Lymphocytes % (Manual) Monocytes % (Manual) Seg Neutrophils # Seg Neutrophils # Man Lymphocytes # (Manual) Monocytes # (Manual) PT INR ABG pH POC ABG pCO2 POC ABG pO2 ABG pO2 ABG HCO3 ABG O2 Saturation ABG Base Excess ABG Hemoglobin ABG Oxyhemoglobin ABG Sodium ABG Potassium ABG Chloride ABG Glucose Oxyhemoglobin Sodium Potassium Chloride Carbon Dioxide BUN 37 H Creatinine 5.3 H Glucose 109 H POC Glucose 108 H 107 H Lactic Acid Calcium Phosphorus 2.10 L Magnesium 1.50 L Total Bilirubin AST ALT Alkaline Phosphatase 143 H Total Protein 6.1 L Albumin 3.0 L Triglycerides Arterial Blood Glucose Arterial Blood Ionized Calcium Digoxin Crossmatch 01/21/21 01/21/21 01/22/21 11:35 17:53 00:20 WBC RBC Hgb Hct MCV MCHC RDW Plt Count Lymph % (Auto) [place] % (Auto) Eos % (Auto) Lymph # (Auto) [place] # (Auto) Eos # (Auto) Seg Neutrophils % Seg Neuts % (Manual) Lymphocytes % (Manual) Monocytes % (Manual) Seg Neutrophils # Seg Neutrophils # Man Lymphocytes # (Manual) Monocytes # (Manual) PT INR ABG pH POC ABG pCO2 POC ABG pO2 ABG pO2 ABG HCO3 ABG O2 Saturation ABG Base Excess ABG Hemoglobin ABG Oxyhemoglobin ABG Sodium ABG Potassium ABG Chloride ABG Glucose Oxyhemoglobin Sodium Potassium Chloride Carbon Dioxide BUN Creatinine Glucose POC Glucose 133 H 124 H 122 H Lactic Acid Calcium Phosphorus Magnesium Total Bilirubin AST ALT Alkaline Phosphatase Total Protein Albumin Triglycerides Arterial Blood Glucose Arterial Blood Ionized Calcium Digoxin Crossmatch 01/22/21 01/22/21 01/22/21 04:00 06:09 11:36 WBC RBC Hgb Hct MCV MCHC RDW Plt Count Lymph % (Auto) [place] % (Auto) Eos % (Auto) Lymph # (Auto) [place] # (Auto) Eos # (Auto) Seg Neutrophils % Seg Neuts % (Manual) Lymphocytes % (Manual) Monocytes % (Manual) Seg Neutrophils # Seg Neutrophils # Man Lymphocytes # (Manual) Monocytes # (Manual) PT INR ABG pH POC ABG pCO2 POC ABG pO2 ABG pO2 ABG HCO3 ABG O2 Saturation ABG Base Excess ABG Hemoglobin ABG Oxyhemoglobin ABG Sodium ABG Potassium ABG Chloride ABG Glucose Oxyhemoglobin Sodium Potassium Chloride Carbon Dioxide BUN 65 H Creatinine 8.2 H D Glucose 111 H POC Glucose 122 H 132 H Lactic Acid Calcium Phosphorus Magnesium Total Bilirubin AST ALT Alkaline Phosphatase Total Protein Albumin Triglycerides Arterial Blood Glucose Arterial Blood Ionized Calcium Digoxin Crossmatch 01/22/21 01/22/21 01/23/21 17:17 23:18 05:29 WBC RBC Hgb Hct MCV MCHC RDW Plt Count Lymph % (Auto) [place] % (Auto) Eos % (Auto) Lymph # (Auto) [place] # (Auto) Eos # (Auto) Seg Neutrophils % Seg Neuts % (Manual) Lymphocytes % (Manual) Monocytes % (Manual) Seg Neutrophils # Seg Neutrophils # Man Lymphocytes # (Manual) Monocytes # (Manual) PT INR ABG pH POC ABG pCO2 POC ABG pO2 ABG pO2 ABG HCO3 ABG O2 Saturation ABG Base Excess ABG Hemoglobin ABG Oxyhemoglobin ABG Sodium ABG Potassium ABG Chloride ABG Glucose Oxyhemoglobin Sodium Potassium Chloride Carbon Dioxide BUN Creatinine Glucose POC Glucose 135 H 128 H 129 H Lactic Acid Calcium Phosphorus Magnesium Total Bilirubin AST ALT Alkaline Phosphatase Total Protein Albumin Triglycerides Arterial Blood Glucose Arterial Blood Ionized Calcium Digoxin Crossmatch 01/23/21 01/23/21 01/23/21 05:45 11:28 16:39 WBC RBC Hgb Hct MCV MCHC RDW Plt Count Lymph % (Auto) [place] % (Auto) Eos % (Auto) Lymph # (Auto) [place] # (Auto) Eos # (Auto) Seg Neutrophils % Seg Neuts % (Manual) Lymphocytes % (Manual) Monocytes % (Manual) Seg Neutrophils # Seg Neutrophils # Man Lymphocytes # (Manual) Monocytes # (Manual) PT INR ABG pH POC ABG pCO2 POC ABG pO2 ABG pO2 ABG HCO3 ABG O2 Saturation ABG Base Excess ABG Hemoglobin ABG Oxyhemoglobin ABG Sodium ABG Potassium ABG Chloride ABG Glucose Oxyhemoglobin Sodium Potassium Chloride Carbon Dioxide BUN 96 H Creatinine 10.8 H Glucose 124 H POC Glucose 160 H 116 H Lactic Acid Calcium Phosphorus Magnesium 2.50 H Total Bilirubin AST ALT Alkaline Phosphatase Total Protein Albumin Triglycerides Arterial Blood Glucose Arterial Blood Ionized Calcium Digoxin Crossmatch 01/24/21 01/24/21 01/24/21 00:02 04:45 05:01 WBC RBC Hgb Hct MCV MCHC RDW Plt Count Lymph % (Auto) [place] % (Auto) Eos % (Auto) Lymph # (Auto) [place] # (Auto) Eos # (Auto) Seg Neutrophils % Seg Neuts % (Manual) Lymphocytes % (Manual) Monocytes % (Manual) Seg Neutrophils # Seg Neutrophils # Man Lymphocytes # (Manual) Monocytes # (Manual) PT INR ABG pH POC ABG pCO2 POC ABG pO2 ABG pO2 ABG HCO3 ABG O2 Saturation ABG Base Excess ABG Hemoglobin ABG Oxyhemoglobin ABG Sodium ABG Potassium ABG Chloride ABG Glucose Oxyhemoglobin Sodium Potassium 3.5 L Chloride Carbon Dioxide BUN 56 H Creatinine 7.7 H Glucose 102 H POC Glucose 120 H 108 H Lactic Acid Calcium Phosphorus Magnesium Total Bilirubin AST ALT Alkaline Phosphatase Total Protein Albumin Triglycerides Arterial Blood Glucose Arterial Blood Ionized Calcium Digoxin Crossmatch 01/24/21 01/24/21 01/24/21 12:03 17:07 23:55 WBC RBC Hgb Hct MCV MCHC RDW Plt Count Lymph % (Auto) [place] % (Auto) Eos % (Auto) Lymph # (Auto) [place] # (Auto) Eos # (Auto) Seg Neutrophils % Seg Neuts % (Manual) Lymphocytes % (Manual) Monocytes % (Manual) Seg Neutrophils # Seg Neutrophils # Man Lymphocytes # (Manual) Monocytes # (Manual) PT INR ABG pH POC ABG pCO2 POC ABG pO2 ABG pO2 ABG HCO3 ABG O2 Saturation ABG Base Excess ABG Hemoglobin ABG Oxyhemoglobin ABG Sodium ABG Potassium ABG Chloride ABG Glucose Oxyhemoglobin Sodium Potassium Chloride Carbon Dioxide BUN Creatinine Glucose POC Glucose 136 H 122 H 112 H Lactic Acid Calcium Phosphorus Magnesium Total Bilirubin AST ALT Alkaline Phosphatase Total Protein Albumin Triglycerides Arterial Blood Glucose Arterial Blood Ionized Calcium Digoxin Crossmatch 01/25/21 01/25/21 01/25/21 05:15 06:00 07:47 WBC RBC Hgb Hct MCV MCHC RDW Plt Count Lymph % (Auto) [place] % (Auto) Eos % (Auto) Lymph # (Auto) [place] # (Auto) Eos # (Auto) Seg Neutrophils % Seg Neuts % (Manual) Lymphocytes % (Manual) Monocytes % (Manual) Seg Neutrophils # Seg Neutrophils # Man Lymphocytes # (Manual) Monocytes # (Manual) PT INR ABG pH POC ABG pCO2 POC ABG pO2 ABG pO2 ABG HCO3 ABG O2 Saturation ABG Base Excess ABG Hemoglobin ABG Oxyhemoglobin ABG Sodium ABG Potassium ABG Chloride ABG Glucose Oxyhemoglobin Sodium 116 L* D Potassium Chloride 79.1 L Carbon Dioxide 17 L D BUN 72 H Creatinine 7.4 H Glucose 2242 H* POC Glucose 117 H 138 H Lactic Acid Calcium 6.7 L D Phosphorus Magnesium Total Bilirubin AST ALT Alkaline Phosphatase Total Protein Albumin Triglycerides Arterial Blood Glucose Arterial Blood Ionized Calcium Digoxin Crossmatch 01/25/21 01/25/21 01/25/21 08:35 11:49 18:42 WBC RBC Hgb Hct MCV MCHC RDW Plt Count Lymph % (Auto) [place] % (Auto) Eos % (Auto) Lymph # (Auto) [place] # (Auto) Eos # (Auto) Seg Neutrophils % Seg Neuts % (Manual) Lymphocytes % (Manual) Monocytes % (Manual) Seg Neutrophils # Seg Neutrophils # Man Lymphocytes # (Manual) Monocytes # (Manual) PT INR ABG pH POC ABG pCO2 POC ABG pO2 ABG pO2 ABG HCO3 ABG O2 Saturation ABG Base Excess ABG Hemoglobin ABG Oxyhemoglobin ABG Sodium ABG Potassium ABG Chloride ABG Glucose Oxyhemoglobin Sodium Potassium Chloride 97.0 L Carbon Dioxide BUN 92 H Creatinine 11.0 H Glucose 125 H POC Glucose 130 H 122 H Lactic Acid Calcium Phosphorus Magnesium Total Bilirubin AST ALT Alkaline Phosphatase Total Protein Albumin Triglycerides Arterial Blood Glucose Arterial Blood Ionized Calcium Digoxin Crossmatch 01/25/21 01/26/21 01/26/21 23:37 04:19 05:48 WBC RBC Hgb Hct MCV MCHC RDW Plt Count Lymph % (Auto) [place] % (Auto) Eos % (Auto) Lymph # (Auto) [place] # (Auto) Eos # (Auto) Seg Neutrophils % Seg Neuts % (Manual) Lymphocytes % (Manual) Monocytes % (Manual) Seg Neutrophils # Seg Neutrophils # Man Lymphocytes # (Manual) Monocytes # (Manual) PT INR ABG pH POC ABG pCO2 POC ABG pO2 ABG pO2 ABG HCO3 ABG O2 Saturation ABG Base Excess ABG Hemoglobin ABG Oxyhemoglobin ABG Sodium ABG Potassium ABG Chloride ABG Glucose Oxyhemoglobin Sodium Potassium Chloride Carbon Dioxide BUN 49 H Creatinine 7.1 H Glucose POC Glucose 144 H 125 H Lactic Acid Calcium Phosphorus Magnesium 1.50 L Total Bilirubin AST ALT Alkaline Phosphatase Total Protein Albumin Triglycerides Arterial Blood Glucose Arterial Blood Ionized Calcium Digoxin Crossmatch 01/26/21 01/26/21 01/27/21 11:16 18:35 00:01 WBC RBC Hgb Hct MCV MCHC RDW Plt Count Lymph % (Auto) [place] % (Auto) Eos % (Auto) Lymph # (Auto) [place] # (Auto) Eos # (Auto) Seg Neutrophils % Seg Neuts % (Manual) Lymphocytes % (Manual) Monocytes % (Manual) Seg Neutrophils # Seg Neutrophils # Man Lymphocytes # (Manual) Monocytes # (Manual) PT INR ABG pH POC ABG pCO2 POC ABG pO2 ABG pO2 ABG HCO3 ABG O2 Saturation ABG Base Excess ABG Hemoglobin ABG Oxyhemoglobin ABG Sodium ABG Potassium ABG Chloride ABG Glucose Oxyhemoglobin Sodium Potassium Chloride Carbon Dioxide BUN Creatinine Glucose POC Glucose 122 H 127 H 130 H Lactic Acid Calcium Phosphorus Magnesium Total Bilirubin AST ALT Alkaline Phosphatase Total Protein Albumin Triglycerides Arterial Blood Glucose Arterial Blood Ionized Calcium Digoxin Crossmatch 01/27/21 01/27/21 01/27/21 04:19 04:19 05:25 WBC 12.4 H RBC 2.79 L Hgb 8.6 L Hct 25.1 L MCV MCHC RDW 16.1 H Plt Count Lymph % (Auto) 7.5 L [place] % (Auto) 9.3 H Eos % (Auto) 4.8 H Lymph # (Auto) 0.9 L [place] # (Auto) 1.1 H Eos # (Auto) 0.6 H Seg Neutrophils % 78.0 H Seg Neuts % (Manual) Lymphocytes % (Manual) Monocytes % (Manual) Seg Neutrophils # 9.7 H Seg Neutrophils # Man Lymphocytes # (Manual) Monocytes # (Manual) PT INR ABG pH POC ABG pCO2 POC ABG pO2 ABG pO2 ABG HCO3 ABG O2 Saturation ABG Base Excess ABG Hemoglobin ABG Oxyhemoglobin ABG Sodium ABG Potassium ABG Chloride ABG Glucose Oxyhemoglobin Sodium Potassium Chloride 97.9 L Carbon Dioxide BUN 76 H Creatinine 9.9 H Glucose 111 H POC Glucose 129 H Lactic Acid Calcium Phosphorus Magnesium Total Bilirubin AST ALT Alkaline Phosphatase Total Protein Albumin Triglycerides Arterial Blood Glucose Arterial Blood Ionized Calcium Digoxin Crossmatch 01/27/21 01/27/21 01/27/21 11:30 17:08 23:28 WBC RBC Hgb Hct MCV MCHC RDW Plt Count Lymph % (Auto) [place] % (Auto) Eos % (Auto) Lymph # (Auto) [place] # (Auto) Eos # (Auto) Seg Neutrophils % Seg Neuts % (Manual) Lymphocytes % (Manual) Monocytes % (Manual) Seg Neutrophils # Seg Neutrophils # Man Lymphocytes # (Manual) Monocytes # (Manual) PT INR ABG pH POC ABG pCO2 POC ABG pO2 ABG pO2 ABG HCO3 ABG O2 Saturation ABG Base Excess ABG Hemoglobin ABG Oxyhemoglobin ABG Sodium ABG Potassium ABG Chloride ABG Glucose Oxyhemoglobin Sodium Potassium Chloride Carbon Dioxide BUN Creatinine Glucose POC Glucose 128 H 158 H 114 H Lactic Acid Calcium Phosphorus Magnesium Total Bilirubin AST ALT Alkaline Phosphatase Total Protein Albumin Triglycerides Arterial Blood Glucose Arterial Blood Ionized Calcium Digoxin Crossmatch 01/28/21 01/28/2101/28/21 05:17 11:27 18:01 WBC RBC Hgb Hct MCV MCHC RDW Plt Count Lymph % (Auto) [place] % (Auto) Eos % (Auto) Lymph # (Auto) [place] # (Auto) Eos # (Auto) Seg Neutrophils % Seg Neuts % (Manual) Lymphocytes % (Manual) Monocytes % (Manual) Seg Neutrophils # Seg Neutrophils # Man Lymphocytes # (Manual) Monocytes # (Manual) PT INR ABG pH POC ABG pCO2 POC ABG pO2 ABG pO2 ABG HCO3 ABG O2 Saturation ABG Base Excess ABG Hemoglobin ABG Oxyhemoglobin ABG Sodium ABG Potassium ABG Chloride ABG Glucose Oxyhemoglobin Sodium Potassium Chloride Carbon Dioxide BUN Creatinine Glucose POC Glucose 113 H 134 H 111 H Lactic Acid Calcium Phosphorus Magnesium Total Bilirubin AST ALT Alkaline Phosphatase Total Protein Albumin Triglycerides Arterial Blood Glucose Arterial Blood Ionized Calcium Digoxin Crossmatch 01/29/21 01/29/21 01/29/21 04:54 06:45 11:10 WBC RBC Hgb Hct MCV MCHC RDW Plt Count Lymph % (Auto) [place] % (Auto) Eos % (Auto) Lymph # (Auto) [place] # (Auto) Eos # (Auto) Seg Neutrophils % Seg Neuts % (Manual) Lymphocytes % (Manual) Monocytes % (Manual) Seg Neutrophils # Seg Neutrophils # Man Lymphocytes # (Manual) Monocytes # (Manual) PT INR ABG pH POC ABG pCO2 POC ABG pO2 ABG pO2 ABG HCO3 ABG O2 Saturation ABG Base Excess ABG Hemoglobin ABG Oxyhemoglobin ABG Sodium ABG Potassium ABG Chloride ABG Glucose Oxyhemoglobin Sodium Potassium 3.4 L Chloride Carbon Dioxide BUN 51 H Creatinine 6.9 H Glucose 120 H POC Glucose 111 H 106 H Lactic Acid Calcium Phosphorus 2.10 L Magnesium Total Bilirubin AST ALT Alkaline Phosphatase 182 H Total Protein 6.0 L Albumin 2.9 L Triglycerides Arterial Blood Glucose Arterial Blood Ionized Calcium Digoxin Crossmatch 01/29/21 01/30/21 01/30/21 16:47 04:15 06:55 WBC RBC Hgb Hct MCV MCHC RDW Plt Count Lymph % (Auto) [place] % (Auto) Eos % (Auto) Lymph # (Auto) [place] # (Auto) Eos # (Auto) Seg Neutrophils % Seg Neuts % (Manual) Lymphocytes % (Manual) Monocytes % (Manual) Seg Neutrophils # Seg Neutrophils # Man Lymphocytes # (Manual) Monocytes # (Manual) PT INR ABG pH POC ABG pCO2 POC ABG pO2 ABG pO2 ABG HCO3 ABG O2 Saturation ABG Base Excess ABG Hemoglobin ABG Oxyhemoglobin ABG Sodium ABG Potassium ABG Chloride ABG Glucose Oxyhemoglobin Sodium Potassium Chloride Carbon Dioxide BUN 73 H Creatinine 9.2 H Glucose 119 H POC Glucose 110 H 126 H Lactic Acid Calcium Phosphorus 4.70 H D Magnesium Total Bilirubin AST ALT Alkaline Phosphatase Total Protein Albumin Triglycerides Arterial Blood Glucose Arterial Blood Ionized Calcium Digoxin Crossmatch 01/30/21 01/31/21 01/31/21 18:25 00:51 07:15 WBC RBC Hgb Hct MCV MCHC RDW Plt Count Lymph % (Auto) [place] % (Auto) Eos % (Auto) Lymph # (Auto) [place] # (Auto) Eos # (Auto) Seg Neutrophils % Seg Neuts % (Manual) Lymphocytes % (Manual) Monocytes % (Manual) Seg Neutrophils # Seg Neutrophils # Man Lymphocytes # (Manual) Monocytes # (Manual) PT INR ABG pH POC ABG pCO2 POC ABG pO2 ABG pO2 ABG HCO3 ABG O2 Saturation ABG Base Excess ABG Hemoglobin ABG Oxyhemoglobin ABG Sodium ABG Potassium ABG Chloride ABG Glucose Oxyhemoglobin Sodium Potassium Chloride Carbon Dioxide BUN Creatinine Glucose POC Glucose 117 H 134 H 134 H Lactic Acid Calcium Phosphorus Magnesium Total Bilirubin AST ALT Alkaline Phosphatase Total Protein Albumin Triglycerides Arterial Blood Glucose Arterial Blood Ionized Calcium Digoxin Crossmatch 01/31/21 01/31/21 02/01/21 11:45 23:15 05:51 WBC RBC Hgb Hct MCV MCHC RDW Plt Count Lymph % (Auto) [place] % (Auto) Eos % (Auto) Lymph # (Auto) [place] # (Auto) Eos # (Auto) Seg Neutrophils % Seg Neuts % (Manual) Lymphocytes % (Manual) Monocytes % (Manual) Seg Neutrophils # Seg Neutrophils # Man Lymphocytes # (Manual) Monocytes # (Manual) PT INR ABG pH POC ABG pCO2 POC ABG pO2 ABG pO2 ABG HCO3 ABG O2 Saturation ABG Base Excess ABG Hemoglobin ABG Oxyhemoglobin ABG Sodium ABG Potassium ABG Chloride ABG Glucose Oxyhemoglobin Sodium Potassium Chloride Carbon Dioxide BUN Creatinine Glucose POC Glucose 119 H 120 H 125 H Lactic Acid Calcium Phosphorus Magnesium Total Bilirubin AST ALT Alkaline Phosphatase Total Protein Albumin Triglycerides Arterial Blood Glucose Arterial Blood Ionized Calcium Digoxin Crossmatch 02/01/21 02/02/21 02/02/21 22:05 03:25 06:16 WBC RBC Hgb Hct MCV MCHC RDW Plt Count Lymph % (Auto) [place] % (Auto) Eos % (Auto) Lymph # (Auto) [place] # (Auto) Eos # (Auto) Seg Neutrophils % Seg Neuts % (Manual) Lymphocytes % (Manual) Monocytes % (Manual) Seg Neutrophils # Seg Neutrophils # Man Lymphocytes # (Manual) Monocytes # (Manual) PT INR ABG pH POC ABG pCO2 POC ABG pO2 ABG pO2 ABG HCO3 ABG O2 Saturation ABG Base Excess ABG Hemoglobin ABG Oxyhemoglobin ABG Sodium ABG Potassium ABG Chloride ABG Glucose Oxyhemoglobin Sodium Potassium 3.3 L Chloride Carbon Dioxide BUN 38 H Creatinine 5.8 H Glucose 115 H POC Glucose 118 H 130 H Lactic Acid Calcium Phosphorus 1.80 L Magnesium 1.60 L Total Bilirubin AST ALT Alkaline Phosphatase Total Protein Albumin Triglycerides Arterial Blood Glucose Arterial Blood Ionized Calcium Digoxin Crossmatch 02/02/21 02/02/21 02/03/21 17:29 21:53 04:50 WBC RBC Hgb Hct MCV MCHC RDW Plt Count Lymph % (Auto) [place] % (Auto) Eos % (Auto) Lymph # (Auto) [place] # (Auto) Eos # (Auto) Seg Neutrophils % Seg Neuts % (Manual) Lymphocytes % (Manual) Monocytes % (Manual) Seg Neutrophils # Seg Neutrophils # Man Lymphocytes # (Manual) Monocytes # (Manual) PT INR ABG pH POC ABG pCO2 POC ABG pO2 ABG pO2 ABG HCO3 ABG O2 Saturation ABG Base Excess ABG Hemoglobin ABG Oxyhemoglobin ABG Sodium ABG Potassium ABG Chloride ABG Glucose Oxyhemoglobin Sodium Potassium Chloride Carbon Dioxide BUN Creatinine Glucose POC Glucose 115 H 120 H Lactic Acid Calcium Phosphorus Magnesium 1.60 L Total Bilirubin AST ALT Alkaline Phosphatase Total Protein Albumin Triglycerides Arterial Blood Glucose Arterial Blood Ionized Calcium Digoxin Crossmatch 02/03/21 02/03/21 02/03/21 06:12 18:25 23:47 WBC RBC Hgb Hct MCV MCHC RDW Plt Count Lymph % (Auto) [place] % (Auto) Eos % (Auto) Lymph # (Auto) [place] # (Auto) Eos # (Auto) Seg Neutrophils % Seg Neuts % (Manual) Lymphocytes % (Manual) Monocytes % (Manual) Seg Neutrophils # Seg Neutrophils # Man Lymphocytes # (Manual) Monocytes # (Manual) PT INR ABG pH POC ABG pCO2 POC ABG pO2 ABG pO2 ABG HCO3 ABG O2 Saturation ABG Base Excess ABG Hemoglobin ABG Oxyhemoglobin ABG Sodium ABG Potassium ABG Chloride ABG Glucose Oxyhemoglobin Sodium Potassium Chloride Carbon Dioxide BUN Creatinine Glucose POC Glucose 112 H 112 H 131 H Lactic Acid Calcium Phosphorus Magnesium Total Bilirubin AST ALT Alkaline Phosphatase Total Protein Albumin Triglycerides Arterial Blood Glucose Arterial Blood Ionized Calcium Digoxin Crossmatch 02/04/21 02/04/21 02/04/21 05:40 09:37 12:03 WBC RBC Hgb Hct MCV MCHC RDW Plt Count Lymph % (Auto) [place] % (Auto) Eos % (Auto) Lymph # (Auto) [place] # (Auto) Eos # (Auto) Seg Neutrophils % Seg Neuts % (Manual) Lymphocytes % (Manual) Monocytes % (Manual) Seg Neutrophils # Seg Neutrophils # Man Lymphocytes # (Manual) Monocytes # (Manual) PT INR ABG pH POC ABG pCO2 POC ABG pO2 ABG pO2 ABG HCO3 ABG O2 Saturation ABG Base Excess ABG Hemoglobin ABG Oxyhemoglobin ABG Sodium ABG Potassium ABG Chloride ABG Glucose Oxyhemoglobin Sodium 131 L D 135 L Potassium 3.0 L 3.1 L Chloride 93.4 L 96.7 L Carbon Dioxide BUN 46 H 52 H Creatinine 6.5 H 7.3 H Glucose 363 H 128 H POC Glucose 129 H Lactic Acid Calcium Phosphorus 2.40 L Magnesium 1.50 L 1.60 L Total Bilirubin AST ALT Alkaline Phosphatase Total Protein Albumin Triglycerides Arterial Blood Glucose Arterial Blood Ionized Calcium Digoxin Crossmatch 02/04/21 02/04/21 02/05/21 17:25 21:38 05:19 WBC RBC Hgb Hct MCV MCHC RDW Plt Count Lymph % (Auto) [place] % (Auto) Eos % (Auto) Lymph # (Auto) [place] # (Auto) Eos # (Auto) Seg Neutrophils % Seg Neuts % (Manual) Lymphocytes % (Manual) Monocytes % (Manual) Seg Neutrophils # Seg Neutrophils # Man Lymphocytes # (Manual) Monocytes # (Manual) PT INR ABG pH POC ABG pCO2 POC ABG pO2 ABG pO2 ABG HCO3 ABG O2 Saturation ABG Base Excess ABG Hemoglobin ABG Oxyhemoglobin ABG Sodium ABG Potassium ABG Chloride ABG Glucose Oxyhemoglobin Sodium Potassium Chloride Carbon Dioxide BUN Creatinine Glucose POC Glucose 132 H 108 H 116 H Lactic Acid Calcium Phosphorus Magnesium Total Bilirubin AST ALT Alkaline Phosphatase Total Protein Albumin Triglycerides Arterial Blood Glucose Arterial Blood Ionized Calcium Digoxin Crossmatch 02/05/21 02/05/21 02/05/21 06:30 11:25 16:20 WBC RBC Hgb Hct MCV MCHC RDW Plt Count Lymph % (Auto) [place] % (Auto) Eos % (Auto) Lymph # (Auto) [place] # (Auto) Eos # (Auto) Seg Neutrophils % Seg Neuts % (Manual) Lymphocytes % (Manual) Monocytes % (Manual) Seg Neutrophils # Seg Neutrophils # Man Lymphocytes # (Manual) Monocytes # (Manual) PT INR ABG pH POC ABG pCO2 POC ABG pO2 ABG pO2 ABG HCO3 ABG O2 Saturation ABG Base Excess ABG Hemoglobin ABG Oxyhemoglobin ABG Sodium ABG Potassium ABG Chloride ABG Glucose Oxyhemoglobin Sodium Potassium 3.2 L Chloride 96.5 L Carbon Dioxide BUN 76 H Creatinine 9.6 H Glucose 112 H POC Glucose 118 H 123 H Lactic Acid Calcium Phosphorus Magnesium 1.50 L Total Bilirubin AST ALT Alkaline Phosphatase 177 H Total Protein 6.0 L Albumin 2.9 L Triglycerides Arterial Blood Glucose Arterial Blood Ionized Calcium Digoxin Crossmatch 02/06/21 02/06/21 02/06/21 05:42 06:42 08:18 WBC RBC Hgb Hct MCV MCHC RDW Plt Count Lymph % (Auto) [place] % (Auto) Eos % (Auto) Lymph # (Auto) [place] # (Auto) Eos # (Auto) Seg Neutrophils % Seg Neuts % (Manual) Lymphocytes % (Manual) Monocytes % (Manual) Seg Neutrophils # Seg Neutrophils # Man Lymphocytes # (Manual) Monocytes # (Manual) PT INR ABG pH POC ABG pCO2 POC ABG pO2 ABG pO2 ABG HCO3 ABG O2 Saturation ABG Base Excess ABG Hemoglobin ABG Oxyhemoglobin ABG Sodium ABG Potassium ABG Chloride ABG Glucose Oxyhemoglobin Sodium 133 L Potassium Chloride 92.7 L Carbon Dioxide 19 L BUN 100 H Creatinine 11.9 H Glucose 114 H POC Glucose 118 H 114 H Lactic Acid Calcium Phosphorus 4.70 H Magnesium 1.60 L Total Bilirubin AST ALT Alkaline Phosphatase Total Protein Albumin Triglycerides Arterial Blood Glucose Arterial Blood Ionized Calcium Digoxin Crossmatch 02/06/21 02/07/21 02/07/21 23:22 04:35 04:35 WBC RBC 2.52 L Hgb 8.0 L Hct 22.5 L MCV MCHC 36 H RDW 16.7 H Plt Count Lymph % (Auto) 12.7 L [place] % (Auto) 10.2 H Eos % (Auto) 5.0 H Lymph # (Auto) [place] # (Auto) 1.0 H Eos # (Auto) 0.5 H Seg Neutrophils % 71.6 H Seg Neuts % (Manual) Lymphocytes % (Manual) Monocytes % (Manual) Seg Neutrophils # Seg Neutrophils # Man Lymphocytes # (Manual) Monocytes # (Manual) PT INR ABG pH POC ABG pCO2 POC ABG pO2 ABG pO2 ABG HCO3 ABG O2 Saturation ABG Base Excess ABG Hemoglobin ABG Oxyhemoglobin ABG Sodium ABG Potassium ABG Chloride ABG Glucose Oxyhemoglobin Sodium 135 L Potassium 3.4 L Chloride 95.5 L Carbon Dioxide BUN 59 H Creatinine 8.5 H Glucose POC Glucose 117 H Lactic Acid Calcium Phosphorus Magnesium Total Bilirubin AST ALT Alkaline Phosphatase Total Protein Albumin Triglycerides Arterial Blood Glucose Arterial Blood Ionized Calcium Digoxin Crossmatch 02/07/21 02/07/21 02/07/21 04:35 11:31 22:49 WBC RBC Hgb Hct MCV MCHC RDW Plt Count Lymph % (Auto) [place] % (Auto) Eos % (Auto) Lymph # (Auto) [place] # (Auto) Eos # (Auto) Seg Neutrophils % Seg Neuts % (Manual) Lymphocytes % (Manual) Monocytes % (Manual) Seg Neutrophils # Seg Neutrophils # Man Lymphocytes # (Manual) Monocytes # (Manual) PT INR ABG pH POC ABG pCO2 POC ABG pO2 ABG pO2 ABG HCO3 ABG O2 Saturation ABG Base Excess ABG Hemoglobin ABG Oxyhemoglobin ABG Sodium ABG Potassium ABG Chloride ABG Glucose Oxyhemoglobin Sodium Potassium Chloride Carbon Dioxide BUN Creatinine Glucose POC Glucose 117 H 122 H Lactic Acid Calcium Phosphorus Magnesium 1.60 L Total Bilirubin AST ALT Alkaline Phosphatase Total Protein Albumin Triglycerides Arterial Blood Glucose Arterial Blood Ionized Calcium Digoxin Crossmatch 02/08/21 02/08/21 02/08/21 04:56 06:45 22:38 WBC RBC Hgb Hct MCV MCHC RDW Plt Count Lymph % (Auto) [place] % (Auto) Eos % (Auto) Lymph # (Auto) [place] # (Auto) Eos # (Auto) Seg Neutrophils % Seg Neuts % (Manual) Lymphocytes % (Manual) Monocytes % (Manual) Seg Neutrophils # Seg Neutrophils # Man Lymphocytes # (Manual) Monocytes # (Manual) PT INR ABG pH POC ABG pCO2 POC ABG pO2 ABG pO2 ABG HCO3 ABG O2 Saturation ABG Base Excess ABG Hemoglobin ABG Oxyhemoglobin ABG Sodium ABG Potassium ABG Chloride ABG Glucose Oxyhemoglobin Sodium 134 L Potassium 3.5 L Chloride 94.2 L Carbon Dioxide BUN 78 H Creatinine 11.4 H Glucose 101 H POC Glucose 113 H 128 H Lactic Acid Calcium Phosphorus Magnesium Total Bilirubin AST ALT Alkaline Phosphatase Total Protein Albumin Triglycerides Arterial Blood Glucose Arterial Blood Ionized Calcium Digoxin Crossmatch 02/09/21 02/09/21 02/09/21 04:43 07:44 11:33 WBC RBC Hgb Hct MCV MCHC RDW Plt Count Lymph % (Auto) [place] % (Auto) Eos % (Auto) Lymph # (Auto) [place] # (Auto) Eos # (Auto) Seg Neutrophils % Seg Neuts % (Manual) Lymphocytes % (Manual) Monocytes % (Manual) Seg Neutrophils # Seg Neutrophils # Man Lymphocytes # (Manual) Monocytes # (Manual) PT INR ABG pH POC ABG pCO2 POC ABG pO2 ABG pO2 ABG HCO3 ABG O2 Saturation ABG Base Excess ABG Hemoglobin ABG Oxyhemoglobin ABG Sodium ABG Potassium ABG Chloride ABG Glucose Oxyhemoglobin Sodium 135 L Potassium 3.2 L Chloride 93.0 L Carbon Dioxide BUN 42 H Creatinine 8.1 H Glucose 128 H POC Glucose 115 H 127 H Lactic Acid Calcium Phosphorus 2.20 L D Magnesium Total Bilirubin AST ALT Alkaline Phosphatase Total Protein Albumin Triglycerides Arterial Blood Glucose Arterial Blood Ionized Calcium Digoxin Crossmatch 02/09/21 02/09/21 02/10/21 17:31 22:15 06:00 WBC RBC Hgb Hct MCV MCHC RDW Plt Count Lymph % (Auto) [place] % (Auto) Eos % (Auto) Lymph # (Auto) [place] # (Auto) Eos # (Auto) Seg Neutrophils % Seg Neuts % (Manual) Lymphocytes % (Manual) Monocytes % (Manual) Seg Neutrophils # Seg Neutrophils # Man Lymphocytes # (Manual) Monocytes # (Manual) PT INR ABG pH POC ABG pCO2 POC ABG pO2 ABG pO2 ABG HCO3 ABG O2 Saturation ABG Base Excess ABG Hemoglobin ABG Oxyhemoglobin ABG Sodium ABG Potassium ABG Chloride ABG Glucose Oxyhemoglobin Sodium Potassium Chloride 95.4 L Carbon Dioxide BUN 65 H Creatinine 10.2 H Glucose 114 H POC Glucose 114 H 117 H Lactic Acid Calcium Phosphorus 2.20 L Magnesium 2.80 H Total Bilirubin AST ALT Alkaline Phosphatase Total Protein Albumin Triglycerides Arterial Blood Glucose Arterial Blood Ionized Calcium Digoxin Crossmatch 02/10/21 02/10/21 02/10/21 06:21 11:45 22:48 WBC RBC Hgb Hct MCV MCHC RDW Plt Count Lymph % (Auto) [place] % (Auto) Eos % (Auto) Lymph # (Auto) [place] # (Auto) Eos # (Auto) Seg Neutrophils % Seg Neuts % (Manual) Lymphocytes % (Manual) Monocytes % (Manual) Seg Neutrophils # Seg Neutrophils # Man Lymphocytes # (Manual) Monocytes # (Manual) PT INR ABG pH POC ABG pCO2 POC ABG pO2 ABG pO2 ABG HCO3 ABG O2 Saturation ABG Base Excess ABG Hemoglobin ABG Oxyhemoglobin ABG Sodium ABG Potassium ABG Chloride ABG Glucose Oxyhemoglobin Sodium 135 L Potassium 3.1 L Chloride 96.3 L Carbon Dioxide BUN 29 H Creatinine 6.2 H Glucose 115 H POC Glucose 111 H 129 H Lactic Acid Calcium 8.0 L Phosphorus Magnesium Total Bilirubin AST ALT Alkaline Phosphatase Total Protein Albumin Triglycerides Arterial Blood Glucose Arterial Blood Ionized Calcium Digoxin Crossmatch 02/10/21 02/11/21 02/11/21 23:58 04:20 06:23 WBC RBC Hgb Hct MCV MCHC RDW Plt Count Lymph % (Auto) [place] % (Auto) Eos % (Auto) Lymph # (Auto) [place] # (Auto) Eos # (Auto) Seg Neutrophils % Seg Neuts % (Manual) Lymphocytes % (Manual) Monocytes % (Manual) Seg Neutrophils # Seg Neutrophils # Man Lymphocytes # (Manual) Monocytes # (Manual) PT INR ABG pH POC ABG pCO2 POC ABG pO2 ABG pO2 ABG HCO3 ABG O2 Saturation ABG Base Excess ABG Hemoglobin ABG Oxyhemoglobin ABG Sodium ABG Potassium ABG Chloride ABG Glucose Oxyhemoglobin Sodium 136 L Potassium 3.3 L Chloride 97.4 L Carbon Dioxide BUN 34 H Creatinine 6.9 H Glucose 116 H POC Glucose 125 H 120 H Lactic Acid Calcium Phosphorus 2.00 L Magnesium Total Bilirubin AST ALT Alkaline Phosphatase Total Protein Albumin Triglycerides Arterial Blood Glucose Arterial Blood Ionized Calcium Digoxin Crossmatch 02/11/21 02/11/21 02/11/21 11:25 17:31 23:23 WBC RBC Hgb Hct MCV MCHC RDW Plt Count Lymph % (Auto) [place] % (Auto) Eos % (Auto) Lymph # (Auto) [place] # (Auto) Eos # (Auto) Seg Neutrophils % Seg Neuts % (Manual) Lymphocytes % (Manual) Monocytes % (Manual) Seg Neutrophils # Seg Neutrophils # Man Lymphocytes # (Manual) Monocytes # (Manual) PT INR ABG pH POC ABG pCO2 POC ABG pO2 ABG pO2 ABG HCO3 ABG O2 Saturation ABG Base Excess ABG Hemoglobin ABG Oxyhemoglobin ABG Sodium ABG Potassium ABG Chloride ABG Glucose Oxyhemoglobin Sodium Potassium Chloride Carbon Dioxide BUN Creatinine Glucose POC Glucose 125 H 115 H 119 H Lactic Acid Calcium Phosphorus Magnesium Total Bilirubin AST ALT Alkaline Phosphatase Total Protein Albumin Triglycerides Arterial Blood Glucose Arterial Blood Ionized Calcium Digoxin Crossmatch 02/12/21 02/12/21 02/12/21 11:30 11:47 17:09 WBC RBC Hgb Hct MCV MCHC RDW Plt Count Lymph % (Auto) [place] % (Auto) Eos % (Auto) Lymph # (Auto) [place] # (Auto) Eos # (Auto) Seg Neutrophils % Seg Neuts % (Manual) Lymphocytes % (Manual) Monocytes % (Manual) Seg Neutrophils # Seg Neutrophils # Man Lymphocytes # (Manual) Monocytes # (Manual) PT INR ABG pH POC ABG pCO2 POC ABG pO2 ABG pO2 ABG HCO3 ABG O2 Saturation ABG Base Excess ABG Hemoglobin ABG Oxyhemoglobin ABG Sodium ABG Potassium ABG Chloride ABG Glucose Oxyhemoglobin Sodium 135 L Potassium Chloride 97.0 L Carbon Dioxide BUN 63 H Creatinine 9.8 H Glucose 113 H POC Glucose 117 H 116 H Lactic Acid Calcium Phosphorus Magnesium Total Bilirubin AST ALT Alkaline Phosphatase Total Protein Albumin Triglycerides Arterial Blood Glucose Arterial Blood Ionized Calcium Digoxin Crossmatch 02/13/21 02/13/21 02/13/21 00:27 06:05 22:06 WBC RBC Hgb Hct MCV MCHC RDW Plt Count Lymph % (Auto) [place] % (Auto) Eos % (Auto) Lymph # (Auto) [place] # (Auto) Eos # (Auto) Seg Neutrophils % Seg Neuts % (Manual) Lymphocytes % (Manual) Monocytes % (Manual) Seg Neutrophils # Seg Neutrophils # Man Lymphocytes # (Manual) Monocytes # (Manual) PT INR ABG pH POC ABG pCO2 POC ABG pO2 ABG pO2 ABG HCO3 ABG O2 Saturation ABG Base Excess ABG Hemoglobin ABG Oxyhemoglobin ABG Sodium ABG Potassium ABG Chloride ABG Glucose Oxyhemoglobin Sodium Potassium Chloride Carbon Dioxide 20 L BUN 80 H Creatinine 11.5 H Glucose 111 H POC Glucose 110 H 115 H Lactic Acid Calcium Phosphorus 5.00 H D Magnesium Total Bilirubin AST ALT Alkaline Phosphatase 149 H Total Protein 5.9 L Albumin 3.2 L Triglycerides Arterial Blood Glucose Arterial Blood Ionized Calcium Digoxin Crossmatch 02/14/21 02/14/21 02/14/21 06:09 09:24 09:24 WBC 18.2 H RBC 2.44 L Hgb 7.4 L Hct 22.5 L MCV MCHC RDW 18.1 H Plt Count Lymph % (Auto) [place] % (Auto) Eos % (Auto) Lymph # (Auto) [place] # (Auto) Eos # (Auto) Seg Neutrophils % Seg Neuts % (Manual) 91.0 H Lymphocytes % (Manual) 6.0 L Monocytes % (Manual) Seg Neutrophils # Seg Neutrophils # Man 16.6 H Lymphocytes # (Manual) 1.1 L Monocytes # (Manual) PT INR ABG pH POC ABG pCO2 POC ABG pO2 ABG pO2 ABG HCO3 ABG O2 Saturation ABG Base Excess ABG Hemoglobin ABG Oxyhemoglobin ABG Sodium ABG Potassium ABG Chloride ABG Glucose Oxyhemoglobin Sodium 136 L Potassium Chloride Carbon Dioxide BUN 46 H Creatinine 8.1 H Glucose 126 H POC Glucose 124 H Lactic Acid Calcium Phosphorus 1.40 L D Magnesium 1.30 L Total Bilirubin AST ALT Alkaline Phosphatase Total Protein Albumin Triglycerides Arterial Blood Glucose Arterial Blood Ionized Calcium Digoxin Crossmatch 02/14/21 02/14/21 02/14/21 11:44 19:11 22:24 WBC RBC Hgb Hct MCV MCHC RDW Plt Count Lymph % (Auto) [place] % (Auto) Eos % (Auto) Lymph # (Auto) [place] # (Auto) Eos # (Auto) Seg Neutrophils % Seg Neuts % (Manual) Lymphocytes % (Manual) Monocytes % (Manual) Seg Neutrophils # Seg Neutrophils # Man Lymphocytes # (Manual) Monocytes # (Manual) PT INR ABG pH POC ABG pCO2 POC ABG pO2 ABG pO2 ABG HCO3 ABG O2 Saturation ABG Base Excess ABG Hemoglobin ABG Oxyhemoglobin ABG Sodium ABG Potassium ABG Chloride ABG Glucose Oxyhemoglobin Sodium Potassium Chloride Carbon Dioxide BUN Creatinine Glucose POC Glucose 120 H 121 H 119 H Lactic Acid Calcium Phosphorus Magnesium Total Bilirubin AST ALT Alkaline Phosphatase Total Protein Albumin Triglycerides Arterial Blood Glucose Arterial Blood Ionized Calcium Digoxin Crossmatch 02/15/21 02/15/21 02/16/21 04:28 05:31 05:16 WBC RBC Hgb Hct MCV MCHC RDW Plt Count Lymph % (Auto) [place] % (Auto) Eos % (Auto) Lymph # (Auto) [place] # (Auto) Eos # (Auto) Seg Neutrophils % Seg Neuts % (Manual) Lymphocytes % (Manual) Monocytes % (Manual) Seg Neutrophils # Seg Neutrophils # Man Lymphocytes # (Manual) Monocytes # (Manual) PT INR ABG pH POC ABG pCO2 POC ABG pO2 ABG pO2 ABG HCO3 ABG O2 Saturation ABG Base Excess ABG Hemoglobin ABG Oxyhemoglobin ABG Sodium ABG Potassium ABG Chloride ABG Glucose Oxyhemoglobin Sodium 133 L Potassium Chloride 96.5 L Carbon Dioxide BUN 66 H Creatinine 9.7 H Glucose 117 H POC Glucose 133 H 140 H Lactic Acid Calcium Phosphorus Magnesium 1.50 L Total Bilirubin AST ALT Alkaline Phosphatase Total Protein Albumin Triglycerides Arterial Blood Glucose Arterial Blood Ionized Calcium Digoxin Crossmatch 02/16/21 02/16/21 05:24 05:24 WBC RBC 2.27 L Hgb 7.1 L Hct 20.7 L MCV MCHC RDW 17.8 H Plt Count Lymph % (Auto) [place] % (Auto) Eos % (Auto) Lymph # (Auto) [place] # (Auto) Eos # (Auto) Seg Neutrophils % Seg Neuts % (Manual) Lymphocytes % (Manual) Monocytes % (Manual) Seg Neutrophils # Seg Neutrophils # Man Lymphocytes # (Manual) Monocytes # (Manual) PT INR ABG pH POC ABG pCO2 POC ABG pO2 ABG pO2 ABG HCO3 ABG O2 Saturation ABG Base Excess ABG Hemoglobin ABG Oxyhemoglobin ABG Sodium ABG Potassium ABG Chloride ABG Glucose Oxyhemoglobin Sodium 135 L Potassium Chloride Carbon Dioxide BUN 36 H Creatinine 6.4 H Glucose 128 H POC Glucose Lactic Acid Calcium 8.3 L Phosphorus Magnesium 1.60 L Total Bilirubin AST ALT Alkaline Phosphatase Total Protein Albumin Triglycerides Arterial Blood Glucose Arterial Blood Ionized Calcium Digoxin Crossmatch Allied health notes reviewed: nursing
--- NOTE | 2021-02-16 14:18 | Progress Note ---
Assessment and Plan POD#51 s/p ex lap with extensive lysis of adhesions and two small bowel resections with primary anastamosis for SBO with necrotic segment small bowel. POD#42 s/p ex lap, resection of perforated anastamosis, washout and abthera wound vac placement. POD#40 s/p ex lap with right hemicolectomy. POD#38 s/p ex lap, with jejunal-colonic anastamosis and closure of abdomen. Febrile episode and stable. 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 Continue HARIS drain suction. HARIS drain must be secured and kept in place. Patient will need to be on TPN for the foreseeable future due to inability to use his GI tract to the point of getting adequate nutrition from oral diet at this time. continue g-tube to drainage for decompression. continue clear liquids and closely monitor HARIS drain output. Afebrile and stable with normalized wbc blood cultures +, continue abx per ID. Case management is trying to get things prepared to go home with home health. Subjective Date of service: 02/16/21 Narrative: no acute events overnight. Pt has no complaints. blood cultures have been resulted as gram positive cocci in pairs. Patient denies abdominal pain, nausea vomiting. Patient is tolerating clear liquids. Patient has not had a fever in 48 hours. Objective Vital Signs - 12hr 02/16/21 02/16/21 02/16/21 02:25 05:15 05:33 Temperature 98.6 F Pulse Rate 95 H 95 H Respiratory 20 Rate Blood Pressure 134/67 136/70 136/70 O2 Sat by Pulse 92 Oximetry 02/16/21 02/16/21 02/16/21 05:34 08:20 09:44 Temperature 99.3 F Pulse Rate 95 H 87 87 Respiratory 18 Rate Blood Pressure 136/70 117/57 117/57 O2 Sat by Pulse 94 Oximetry 02/16/21 02/16/21 02/16/21 09:45 10:30 10:45 Temperature 99.3 F Pulse Rate 87 80 84 Respiratory 18 Rate Blood Pressure 117/57 145/90 133/74 O2 Sat by Pulse Oximetry 02/16/21 02/16/21 02/16/21 11:00 11:15 11:30 Temperature Pulse Rate 83 86 85 Respiratory Rate Blood Pressure 118/71 129/68 103/54 O2 Sat by Pulse Oximetry 02/16/21 02/16/21 02/16/21 11:45 12:00 12:15 Temperature Pulse Rate 89 81 83 Respiratory Rate Blood Pressure 127/80 115/75 105/72 O2 Sat by Pulse Oximetry 02/16/21 02/16/21 12:30 12:45 Temperature Pulse Rate 84 82 Respiratory Rate Blood Pressure 128/73 123/73 O2 Sat by Pulse Oximetry - General physical appearance well developed, no distress, no pain - Respiratory normal expansion, normal respiratory effort - Abdomen soft, not tender (HARIS drain brown drainage, 10ml recorded last 24 hours. G-tube with bilious drainage) - Labs 02/16/21 05:24 02/16/21 05:24 Diabetes panel 02/16/21 Range/Units 05:24 Sodium 135 L (137-145) mmol/L Potassium 3.6 (3.6-5.0) mmol/L Chloride 98.5 (98-107) mmol/L Carbon Dioxide 26 (22-30) mmol/L BUN 36 H (9-20) mg/dL Creatinine 6.4 H (0.8-1.3) mg/dL Glucose 128 H (75-100) mg/dL Calcium 8.3 L (8.4-10.2) mg/dL Calcium panel 02/16/21 Range/Units 05:24 Calcium 8.3 L (8.4-10.2) mg/dL Phosphorus 2.60 (2.5-4.5) mg/dL Pituitary panel 02/16/21 Range/Units 05:24 Sodium 135 L (137-145) mmol/L Potassium 3.6 (3.6-5.0) mmol/L Chloride 98.5 (98-107) mmol/L Carbon Dioxide 26 (22-30) mmol/L BUN 36 H (9-20) mg/dL Creatinine 6.4 H (0.8-1.3) mg/dL Glucose 128 H (75-100) mg/dL Calcium 8.3 L (8.4-10.2) mg/dL Adrenal panel 02/16/21 Range/Units 05:24 Sodium 135 L (137-145) mmol/L Potassium 3.6 (3.6-5.0) mmol/L Chloride 98.5 (98-107) mmol/L Carbon Dioxide 26 (22-30) mmol/L BUN 36 H (9-20) mg/dL Creatinine 6.4 H (0.8-1.3) mg/dL Glucose 128 H (75-100) mg/dL Calcium 8.3 L (8.4-10.2) mg/dL
--- NOTE | 2021-02-16 15:26 | Operative Report ---
Operative Report Operative Report: Exam: Removal of tunneled hemodialysis catheter, removal of tunneled central venous catheter Clinical indication: Patient with a history of end-stage renal disease on hemodialysis through a left chest wall tunneled hemodialysis catheter, patient with a history of nutritional deficiency requiring TPN through a left chest wall tunneled PICC. Patient now bacteremic and 4 out of 4 bottles. Date: 02/16/2021 Procedure: Following an explanation of the risks, benefits and alternatives; informed consent was obtained from the patient. The procedure was performed at bedside in the patient's room. Initial evaluation of the patient's left chest wall demonstrated to tunneled catheters. No purulence or exudates were identified in either catheter. The catheter cuff of the tunneled PICC was partially exposed. The patient's left chest wall and indwelling catheters were prepped and draped in the usual sterile fashion. 1% lidocaine was used at the catheter exit site and along the tunnel tract. Using a combination of sharp and blunt dissection, the catheter cuff of the tunneled hemodialysis catheter was dissected free and the catheter removed intact. The tunneled central venous catheter was removed in a similar fashion. Hemostasis was then achieved using manual compression and a sterile dressing a pplied. The patient tolerated both procedures well. There were no immediate postprocedure complications. No sedation was utilized. Impression: 1) Removal of tunneled hemodialysis catheter. 2) Removal of tunneled PICC line.
[2021-02-16 16:09] LABS: % Iron Saturation 25.32 %
[2021-02-16] MEDS ORDERED: TOTAL PARENTERAL NUTRITION 2,016 ML IV SCH (20:00)
[2021-02-16] MEDS ORDERED: VANCOMYCIN 1,250 MG in SODIUM CHLORIDE 0.9% 250ML 250 ML IV ONE (22:00)
[2021-02-16] MEDS: INSULIN GLARGINE 100 UNITS/ML SUB-Q SCH (22:17)
[2021-02-16] MEDS: DEXTROSE 10% IN WATER 1,000 ML IV SCH (22:19)
[2021-02-17] MEDS: INSULIN LISPRO 100 UNIT/ML SUB-Q SCH ×3 (05:26→19:21)
[2021-02-17] MEDS: hydrALAZINE 20 MG/1 ML INJ IV SCH ×6 (05:27→22:43)
[2021-02-17] MEDS: DIPHENOXYLATE/ATROPINE TAB PO SCH ×4 (05:27→22:12)
[2021-02-17] MEDS: METOPROLOL TARTRATE 25 MG TAB PO SCH ×3 (05:29→22:00)
--- NOTE | 2021-02-17 10:40 | Progress Note ---
Assessment and Plan POD#52 s/p ex lap with extensive lysis of adhesions and two small bowel resections with primary anastamosis for SBO with necrotic segment small bowel. POD#43 s/p ex lap, resection of perforated anastamosis, washout and abthera wound vac placement. POD#41 s/p ex lap with right hemicolectomy. POD#39 s/p ex lap, with jejunal-colonic anastamosis and closure of abdomen. Febrile episode and stable. 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 Continue HARIS drain suction. HARIS drain must be secured and kept in place. Patient will need to be on TPN for the foreseeable future due to inability to use his GI tract to the point of getting adequate nutrition from oral diet at this time. continue g-tube to drainage for decompression. continue clear liquids and closely monitor HARIS drain output. Afebrile and stable with normalized wbc blood cultures +, continue abx per ID. Pt tentatively scheduled for catheter replacement on Saturday. Case management is trying to get things prepared to go home with home health. Subjective Date of service: 02/17/21 Narrative: Pt had his tunnelled catheter removed yesterday for bacteremia. His peripheral line infiltrated last night and was replaced in the other arm. Pt denies pain, nausea or vomiting. Objective Vital Signs - 12hr 21 02/17/21 23:40 05:07 Temperature 99.6 F 97.5 F L Pulse Rate 85 95 H Respiratory 18 18 Rate Blood Pressure 111/55 153/84 [Right] O2 Sat by Pulse 99 95 Oximetry - General physical appearance well developed, well nourished, no distress, no pain - Respiratory normal expansion, normal respiratory effort - Abdomen soft, not tender, other (HARIS drain brown drainage, 20 ml recorded last 24 hours. g-tube bilious) - Labs 02/16/21 05:24 02/16/21 05:24
[2021-02-17] MEDS ORDERED: VANCOMYCIN 1,250 MG in SODIUM CHLORIDE 0.9% 250ML 250 ML IV ONE (11:00)
[2021-02-17] MEDS: FLUTICASONE PROPIONATE NASAL SPRAY 16 GM NS SCH (11:06)
[2021-02-17] MEDS: HEPARIN 5,000 UNIT/1 ML VIAL SUB-Q SCH ×2 (11:37→22:00)
[2021-02-17] MEDS: FAMOTIDINE 20 MG/2 ML INJ IV SCH ×2 (11:38→22:41)
[2021-02-17] MEDS: SCOPOLAMINE TRANSDERMAL PATCH 72 HR TD SCH (12:11)
--- NOTE | 2021-02-17 12:15 | Progress Note ---
Assessment and Plan Assessment and plan: Severe Sepsis with shock Streptococcus bovis bacteremia/Prevotella bacteremia Gwendolyn albicans tracheal aspirate Small bowel obstruction/necrotic bowel s/p ex lap with extensive lysis of adhesions, 2 small bowel resections with primary anastomosis, right hemicolectomy, jejunal colonic anastomosis, segmental small bowel resection Postoperative ileus Atrial fibrillation with RVR Leukocytosis Hypochloremia Gwendolyn albicans in tracheal aspirate from 12/24 ESRD on PD, PermCath to be placed Transaminitis Systolic CHF(EF 35%) Crohn's disease Hypertension Hypokalemia and hypophosphatemia -[facility], surgery, infectious disease, nephrology, vascular surgery, cardiology consulted, appreciate recommendations -12/24 S/p ex lap with extensive expectations, 2 small bowel resections with primary anastomosis with surgery on 12/23 -s/p PICC and Permacath placement with vascular surgery on 12/27 -Extubated on 12/28, reintubated 12/31 for respiratory distress and extubated 01/08 -12/29 echocardiogram shows moderate concentric LVH, small pericardial effusion, transmitral Doppler flow pattern is grade 1 abnormal relaxation pattern, left- ventricular systolic function normal, LVEF 50 to 55%, no wall motion abnormalities. -01/01 CT abdomen/pelvis shows small pericardial effusion, mild coronary artery atherosclerotic calcification, small bilateral pleural effusions with associated volume loss, no convincing evidence of bowel obstruction or inflammation, postoperative changes from interval/recent midline laparotomy with a moderate amount of free fluid throughout the abdomen, small amount of dependent free air presumably postoperative -01/02 s/p ex lap, resection of perforated anastamosis, washout and abthera wound vac placement. -01/04 s/p ex lap with right hemicolectomy. -01/06 s/p exploratory laparotomy, Jejunal colonic anastomosis, Segmental small bowel resection. -s/p Vasopressor support with Levophed and vasopressin -Transitioned to HD from PD -HD per nephro, Epogen with HD -Strict NPO -cont TPN, Octreotide drip -s/p NGT to LIWS, now placed on G-tube for decompression - s/p rectal tube -s/p IV antibiotics -Tobacco abuse cessation counseling -Trend CBC, BMP DVT/GI prophylaxis: PPI, heparin subcu, SCDs to bilateral lower extremities while in bed Brief Course: This is a 60 YO Male with ESRD on PD, GERD, Crohn's Disease, Nicotine Dependence, HTN, Systolic CHF(EF 35%) who presented to the emergency department on 12/22 with complaints of abdominal pain which began shortly after eating fast food rated 10/10 which is periumbilical, constant, associated with fever, nausea and multiple sites of vomiting and self-reported inability to undergo PD. In the emergency room patient underwent a CT scan of the abdomen/pelvis which revealed evidence of partial small bowel obstruction, symptoms were consistent with bacterial peritonitis. Patient was admitted to the hospital service with sepsis, peritonitis, and small bowel obstruction with consults to general surgery, nephrology, infectious disease and [facility]. Daily clinical course: 12/23. Patient had temperature 101.2 F, tachycardia and elevated lactic acid on admission. Meet sepsis criteria. Started on IV antibiotics. ID has been consulted. Surgery consulted this a.m.-advised laparoscopy. He remains on NG tube connected to suction. 12/24. Patient was noted to have peritonitis yesterday and patient undergoing exploratory laparotomy. Patient remained intubated after procedure and is in ICU. Now on broad-spectrum antibiotics. ID on board. 12/25. Remains mechanically ventilated and sedated. Temp 103 Fahrenheit. Antibiotics broadened-ID added fluconazole and Flagyl. Blood cultures ordered. Plan to repeat CT abdomen tomorrow if not better. Surgery following. 12/26: Patient remains on mechanical ventilation on CMV tidal line 550, rate of 14, PEEP of 8 and 30% FiO2 and sedated on fentanyl 4 micrograms. Today we will remove his Jeffery and [facility] dropped his rate controlled him on CPAP. We will trend CBC given recent drop in H/H. 12/27: Patient remains intubated on CMV tidal volume 550, rate 12, PEEP 8 on 30% FiO2 at the time my examination. Patient's TPN will be changed to PPN. Adebayo dueñas's fentanyl drip will be changed to IV push fentanyl and have a permacath placed today and midline. Patient was placed on a spontaneous breathing trial was switched back to CMV prior to procedure. 12/28: Patient on fentanyl but awake and follows commands. At the time of my examination he was on a CPAP trial and is scheduled to receive HD today. s/o permacath and PICC placement with vascular yesterday. His blood culture grew Prevotella and addition to Streptococcus bovis. This evening Dr. Spicer attempted to extubate the patient and his heart rate went to the 180s. Stat EKG obtained and cardiology consulted. 12/29: Patient was started on amiodarone IV for A. fib RVR yesterday and today he is more rate controlled into the 70s and 80s. Patient was extubated yesterday and is currently on Ventimask. Patient will be transferred to [facility]. Patient continues to be n.p.o. with TPN and NG tube to LIS. He is hypokalemic today which was repleted. 12/30; patient was on IV amiodarone for treatment with RVR, rate is controlled. Patient was off oxygen. patient is n.p.o. and on TPN. Surgery is following the patient. 12/31: Patient was intubated overnight for respiratory distress and this morning on examination he was on assist control tidal volume 450, rate 20, PEEP 6, 100% FiO2 and RT was getting a ABG to adjust vent settings. Patient had a acute bump in WBC and per ID recommendations we will obtain a CT abdomen/pelvis if leukocytosis persist. Patient is on TPN and sedated with Levophed. Patient is also on vasopressor support with Levophed. Per surgery his ileus is resolving however will maintain OGT to LIWS. 01/01: Patient was started on a vasopressin yesterday late evening. This morning patient is on 20 mcg of Levophed and 0.03 vasopressin and sedated on 20 mcg of propofol. Patient WBC increased today and he is hypokalemic. We will treat hyperkalemia. Patient had a CT chest and abdomen/pelvis pending. The time examination total of 450, rate 20, PEEP of 6 and 35 percent FiO2. Per RN, Dr Pollock has stated that the patient will be returning to the OR today for likely anastomosis seen on CT abdomen/pelvis. 01/02: Patient noted, WBC improving, but noted to have anemia, will transfuse additional unit of Blood and repeat H/H. continue supportive care. 01/03: Continue to wean pressors, ABX PER ID, patient to return to OR today for washout and possible closure, CONTINUE TPN 01/04: Continues to show some improvement. Today is POD#12 s/p ex lap with extensive lysis of adhesions and two small bowel resections with primary anastamosis for SBO with necrotic segment small bowel. POD#3 s/p ex lap, resection of perforated anastamosis, washout and abthera wound vac placement. POD#1 s/p ex lap with right hemicolectomy. Surgery planning to take back to the OR on Saturday with the hope to anastamos ileum to transverse colon and close abdomen. keep NGT to suction. Pt in deep sedation due to open abdomen. Per ID - Continue IV Zosyn, renally dosed for Strep bacteremia treatment till 01/06/2021 -On TPN 01/05: Patient continues on HD, anticipate return to OR tomorrow for closure and anastemosis. Continues with deep sedation due to open abdomen 01/06: Continue supportive care, monitor pressures and electrolytes. He is post op Exploratory laparotomy, 2. Jejunal colonic anastomosis,3. Segmental small bowel resection and anastemosis closure today. Continue wound vac 01/07: Continue supportive care, Today is POD#15 s/p ex lap with extensive lysis of adhesions and two small bowel resections with primary anastamosis for SBO wit h necrotic segment small bowel. POD#6 s/p ex lap, resection of perforated anastamosis, washout and abthera wound vac placement. POD#4 s/p ex lap with right hemicolectomy. POD #1 exploratory laparotomy, 2. Jejunal colonic anastomosis,3. Segmental small bowel resection. Continue to monitor and sruthi ect electrolytes. Patient remains on fentanyl and TPN with lipids. Still hypoactive bowel sounds. 16: Patient now extubated, asked when he can go home, Still lethargic. Continue wound management, wound vac, Will need Rehab eval prior to discharge. 01/09: Patient remains on TPN, was started on labetalol drip per cardiology, patient had uncontrolled hypertension today however he cannot be given p.o. medications ileus resolves per surgery. Patient received hemodialysis today. NG tube remains to low intermittent suction. 01/10: Patient has some leukocytosis, slight hypokalemia and hyponatremia, metabolic acidosis. NG tube to LIWS, continue TPN. Patient will be downgraded to IMCU today. [facility] is working on placement. Will change frequency of hydralazine and discontinue labetalol drip. We will obtain a.m. BMP/mag/Phos and CBC. Infectious disease will like to start Zosyn if leukocytosis continues to worsen. 01/11: Patient leukocytosis has slightly improved potassium with in normal limits and other electrolytes are elevated but patient is scheduled for HD today. Remains on RA and A,A,Ox4. BP better controlled but remains elevated and we will increase clonidine dose. 01/12/2021; patient's blood pressure is better after dialysis and as needed IV medications and clonidine patch. Patient is followed by general surgery. Patient was alert and oriented and asked when he is going home. 01/13: Surgery is concerned about a leak at his anastamosis given increased output and will treat as controlled fistula and start an octreotide drip. And per surgery if he requires operative intervention will likely need to be left in discontinuity and eventual ileostomy as he has already failed two anastamoses. Patient still has tongue swelling and slurred speech. He is on Benadryl. 01/14: Patient's tongue swelling is improved, patient is alert and oriented, CAM ICU negative. Continue NG tube to low wall intermittent suction. Leukocytosis is improving. Hypomagnesemia resolved. Epogen with HD 01/15: Patient tongue swelling is much improved, bladder scan completed by bedside RN and he needed to be straight cathed. NGT output decreased. Leukocytosis improving. Patient has been having episodes of hypoglycemia during the day and he is on cyclic TPN, Lantus rescheduled to nightly and dosage decreased. 01/16: Continue management per ID and surgery. Will defer repeat CT of the abdomen to the team surgery has been approved by nephrology. Continue current diet and advance all to ice if okay with surgery discussed with nursing staff. 01/17: Discussed surgical recommendation of strict n.p.o. except for small amount of ice as patient has already failed to anastomosis. And risk for additional surgery with tissues were extremely friable from previous scar. He continues on octreotide drip to slow down GI output HARIS drain remains in place with NG suction for decompression. Patient verbalized understanding although stressed about being discharged. We will continue IMCU care unless otherwise advised by surgery. Prognosis remains guarded continue to monitor electrolytes considering GI output. 01/18: Continue supportive care, BP mildly elevated, continue to monitor, con tinue current therapy, if no return to PO soon may consider Increasing clonidine to 0.3, PO when ok with surgery. 01/19:Continue supportive care, Per ID continue IV Zosyn, plan to stop at 3 weeks from last surgery end date: 01/24/2021. Other management per surgery. Continue TPN. 01/20: Discussed with Surgery, will continue current management. Advised patient of the findings and plan. 01/21: Continue supportive care. Continue management per surgery advance diet when okay with surgery. Plan of care discussed with the patient in detail. 01/22: NG tube to be replaced explained to the patient why this is important. I agree with PT OT discussed with nursing staff very important to let the PT team know that they should manage HARIS drain while patient is ambulating so that he does not come out. Continue current management. Change in ocreotide to q8h and d/c drip NOTED 01/23: Continue supportive care, HD today, counselling provided to the patient on compliance with medical management 01/24: Replace NGT, Continue management per Surgery. POD 32. Mild hypokalemia noted, will replace. 01/25: Brief summary patient is a 60-year-old male admitted with abdominal pain and noted to have necrotic bowel concerning for PD associated peritonitis. Catheter was placed to convert to HD. Patient also underwent multiple surgical interventions. Initial cultures showed Streptococcus bovis bacteremia and Prevotella bacteremia a COLIN was without vegetations repeat blood cultures have b een negative. Part of the surgery is included ex lap, resection of perforated anastomosis, washout and a better wound VAC placement on 01/01. While progress has remained slow if has indeed shown some improvement. Patient is agitated about being in the hospital but understands the care management been provided his vital to his health and to prevent further surgeries. The NG tube has been pulled out 2 days ago he vehemently refused the tube being placed back but after a day of nausea with associated vomiting he was accepting of the chest tube to put back. He continues on TPN. We will continue to monitor electrolytes and correct as needed. This a.m. and erroneous blood was obtained likely from the same line as TPN repeat was done which showed normalizing factors. Patient completed antibiotics on 01/25/2020 . 01/26 Patient with severe sepsis with septic shock, small bowel obstruction, necrotic bowel s/p multiple surgeries. He complains of abdominal pain. No fever currently. He asked me when is he going home and i explained that he is not yet stable for discharge 01/27 Patient with severe sepsis with septic shock, small bowel obstruction, necrotic bowel s/p multiple surgeries. He complains of abdominal pain. No fever currently. Paroxysmal atrial fib managed by cardiology 01/28 Patient with severe sepsis with septic shock, small bowel obstruction, necrotic bowel s/p multiple surgeries. No fever currently. No abd pain currently. I discussed with Surgeon, Dr. Pollock. Continue current management. He also has paroxysmal afib, managed by Cardiology. 01/29 Patient with severe sepsis with septic shock, small bowel obstruction, necrotic bowel s/p multiple surgeries. No fever currently. No abd pain currently. I discussed with Surgeon, Dr. Pollock, yesterday. Continue current management. He also has paroxysmal afib, managed by Cardiology. He is on Metoprolol, Digoxin, Clonidine 01/30 Patient with severe sepsis with septic shock, small bowel obstruction, ne crotic bowel s/p multiple surgeries. Patient is a 60-year-old male admitted with abdominal pain and noted to have necrotic bowel concerning for PD associated peritonitis. Catheter was placed to convert to HD. Patient also underwent multiple surgical interventions. Initial cultures showed Strept ococcus bovis bacteremia and Prevotella bacteremia a COLIN was without vegetations repeat blood cultures have been negative. Part of the surgery is included ex lap, resection of perforated anastomosis, washout and a better wound VAC placement on 01/01. While progress has remained slow if has indeed shown some improvement. Patient is agitated about being in the hospital but understands the care management been provided his vital to his health and to prevent further surgeries. He continues on TPN. No fever currently. Less abdominal pain. Discussed with Surgeon, Dr. Pollock, few days ago. Continue current management. He also has paroxysmal afib, managed by Cardiology. He is on Metoprolol, Di goxin, Clonidine. ESRD on dialysis managed by Nephrology. 01/31: Continue HARIS drain suction. Ongoing treatment for anastomotic leak/controlled low output fistula. Maintain LIWS to NGT and monitor output. continue q 8h ocreotide. cont TPN. Defer to general surgery for NG tube discontinuation. 02/01: planned for g-tube placement for gastric decompression. Removed NG tube today. S/p HD -tolerated well : Status post G-tube placement today, resume TPN, patient is off from rectal tube. Continue supportive care and follow general surgery recommendation for discharge planning. Hemodialysis per schedule 02/03 -02/05: cont TPN, G-tube suction, Continue supportive care and follow general surgery recommendation for discharge planning. Hemodialysis per schedule. 02/06: Per surgery Anastamotic leak slowing down and is a controlled fistula. Continue HARIS drain suction. Since HARIS drain has continued to stay about 10ml over the last several days, plan to continue lower dose of octreotide. continue g-tube to drainage for decompression. continue clear liquids and closely monitor HARIS drain output. patient need LTAC placement. Continue to replace electrolytes and monitor phosphate level 02/07/2021; Per surgery Anastamotic leak slowing down and is a controlled fistula. Continue HARIS drain suction. Since HARIS drain has continued to stay about 10ml over the last several days, plan to continue lower dose of octreotide. continue g-tube to drainage for decompression. continue clear liquids and closely monitor HARIS drain output. patient need LTAC placement. Continue to replace electrolytes and monitor phosphate level. 02/08/2021; patient need to be transferred to LTAC. Patient expressed he wants to go home. 02/09/2021; pending LTAC placement 02/10/2021; pending LTAC placement 02/11/2021;case management continues to find a place to take him. General surgery is considering to discharge him home with home health, home TPN. 02/12/2021; patient expressed to go home. Put a consult for case management to arrange home health and home TPN. 02/13/2021; patient does not want to go to rehab or LTAC. I have discussed with case management about the option of getting home health and home PPN. Case management is working on it. 02/14: Patient now with fever Tmax 101.7, has been low grade prior, will recheck per my discussion with nursing staff. Will check CBC, Procalcitonin, blood clutu res, chest xray. Patient is a dialysis patient and has PICC line. From my understanding not returning blood. Will need to check integrity of the line. Nurse to call PICC team. Will like to monitor 24 hrs prior to planned discharge. Understand patient is still on TPN. 02/15: Recurrent spesis, in patient with mulitiple line and TPN, input from ID - f/u blood cultures. PER ID - continue empiric renally dosed Cefepime + Vancomycin + Flagyl + Micafungin (has indwelling lines and has been on TPN) - if no source is identified, may need abdominal imaging with CT with contrast coordinated with dialysis No new FEVER TODAY Continue supportive care. 02/16: Patient seen and examined, 4/4 Bottles positive GPC, ID input noted. Discussed with correspondence school instructor, vascular and the patient, all central lines will be removed following HD today. Continue antibiotics. 02/17/21 patient seen and examined. No new complain. Blood culture is positive for GPC. Repeat blood cultures ordered. Continue IV vancomycin. Continue current management. HD as per nephrology. Infectious disease follow-up. Recheck CBC BMP in the morning. History Interval history: Patient is seen and examined Labs and medication reviewed No new complaints. No abdominal pain no nausea vomiting. Hospitalist Physical - Constitutional Vitals: Temp Pulse Resp BP Pulse Ox 98.8 F 77 18 136/66 98 02/17/21 10:42 02/17/21 10:42 02/17/21 10:42 02/17/21 10:42 02/17/21 10:42 General appearance: Present: no acute distress HEART Score - HEART Score Troponin: Troponin T 0.021 ng/mL (0.00-0.029) 12/22/20 14:38 Results - Labs CBC & Chem 7: 02/16/21 05:24 02/16/21 05:24 Labs: Laboratory Last Values WBC 7.2 K/mm3 (4.5-11.0) 02/16/21 05:24 RBC 2.27 M/mm3 (3.65-5.03) L 02/16/21 05:24 Hgb 7.1 gm/dl (11.8-15.2) L 02/16/21 05:24 Hct 20.7 % (35.5-45.6) L 02/16/21 05:24 MCV 91 fl (84-94) 02/16/21 05:24 MCH 31 pg (28-32) 02/16/21 05:24 MCHC 34 % (32-34) 02/16/21 05:24 RDW 17.8 % (13.2-15.2) H 02/16/21 05:24 Plt Count 147 K/mm3 (140-440) 02/16/21 05:24 Lymph % (Auto) 12.7 % (13.4-35.0) L 02/07/21 04:35 Graves % (Auto) 10.2 % (0.0-7.3) H 02/07/21 04:35 Eos % (Auto) 5.0 % (0.0-4.3) H 02/07/21 04:35 Baso % (Auto) 0.5 % (0.0-1.8) 02/07/21 04:35 Lymph # (Auto) 1.2 K/mm3 (1.2-5.4) 02/07/21 04:35 Graves # (Auto) 1.0 K/mm3 (0.0-0.8) H 02/07/21 04:35 Eos # (Auto) 0.5 K/mm3 (0.0-0.4) H 02/07/21 04:35 Baso # (Auto) 0.0 K/mm3 (0.0-0.1) 02/07/21 04:35 Add Manual Diff Complete 02/14/21 09:24 Total Counted 100 02/14/21 09:24 Seg Neutrophils % [employer] Manager 02/14/21 09:24 Seg Neuts % (Manual) 91.0 % (40.0-70.0) H 02/14/21 09:24 Band Neutrophils % 1.0 % 02/14/21 09:24 Lymphocytes % (Manual) 6.0 % (13.4-35.0) L 02/14/21 09:24 Reactive Lymphs % (Man) 1.0 % 12/29/20 05:16 Monocytes % (Manual) 2.0 % (0.0-7.3) 02/14/21 09:24 Eosinophils % (Manual) 2.0 % (0.0-4.3) 12/29/20 05:16 Metamyelocytes % 2.0 % 12/29/20 05:16 Nucleated RBC % Not Reportable 02/14/21 09:24 Seg Neutrophils # 6.9 K/mm3 (1.8-7.7) 02/07/21 04:35 Seg Neutrophils # Man 16.6 K/mm3 (1.8-7.7) H 02/14/21 09:24 Band Neutrophils # 0.2 K/mm3 02/14/21 09:24 Lymphocytes # (Manual) 1.1 K/mm3 (1.2-5.4) L 02/14/21 09:24 Abs React Lymphs (Man) 0.0 K/mm3 02/14/21 09:24 Monocytes # (Manual) 0.4 K/mm3 (0.0-0.8) 02/14/21 09:24 Eosinophils # (Manual) 0.0 K/mm3 (0.0-0.4) 02/14/21 09:24 Basophils # (Manual) 0.0 K/mm3 (0.0-0.1) 02/14/21 09:24 Metamyelocytes # 0.0 K/mm3 02/14/21 09:24 Myelocytes # 0.0 K/mm3 02/14/21 09:24 Promyelocytes # 0.0 K/mm3 02/14/21 09:24 Blast Cells # 0.0 K/mm3 02/14/21 09:24 WBC Morphology Not Reportable 02/14/21 09:24 Hypersegmented Neuts Not Reportable 02/14/21 09:24 Hyposegmented Neuts Not Reportable 02/14/21 09:24 Hypogranular Neuts Not Reportable 02/14/21 09:24 Smudge Cells Not Reportable 02/14/21 09:24 Toxic Granulation Not Reportable 02/14/21 09:24 Toxic Vacuolation Not Reportable 02/14/21 09:24 Dohle Bodies Not Reportable 02/14/21 09:24 Pelger-Huet Anomaly Not Reportable 02/14/21 09:24 Lamar Rods Not Reportable 02/14/21 09:24 Platelet Estimate Consistent w auto 02/14/21 09:24 Clumped Platelets Not Reportable 02/14/21 09:24 Plt Clumps, EDTA Not Reportable 02/14/21 09:24 Large Platelets Rare 02/14/21 09:24 Giant Platelets Not Reportable 02/14/21 09:24 Platelet Satelliting Not Reportable 02/14/21 09:24 Plt Morphology Comment Not Reportable 02/14/21 09:24 RBC Morphology Not Reportable 02/14/21 09:24 Dimorphic RBCs Not Reportable 02/14/21 09:24 Polychromasia Few 02/14/21 09:24 Hypochromasia Not Reportable 02/14/21 09:24 Poikilocytosis Not Reportable 02/14/21 09:24 Anisocytosis 1+ 02/14/21 09:24 Microcytosis Not Reportable 02/14/21 09:24 Macrocytosis Not Reportable 02/14/21 09:24 Spherocytes Not Reportable 02/14/21 09:24 Pappenheimer Bodies Not Reportable 02/14/21 09:24 Sickle Cells Not Reportable 02/14/21 09:24 Target Cells Not Reportable 02/14/21 09:24 Tear Drop Cells Few 02/14/21 09:24 Ovalocytes Not Reportable 02/14/21 09:24 Helmet Cells Not Reportable 02/14/21 09:24 [place] Bodies Not Reportable 02/14/21 09:24 [place] Rings Not Reportable 02/14/21 09:24 Jenny Cells Not Reportable 02/14/21 09:24 Bite Cells Not Reportable 02/14/21 09:24 Crenated Cell Not Reportable 02/14/21 09:24 Elliptocytes Not Reportable 02/14/21 09:24 Acanthocytes (Spur) Not Reportable 02/14/21 09:24 Rouleaux Not Reportable 02/14/21 09:24 Hemoglobin C Crystals Not Reportable 02/14/21 09:24 Schistocytes Not Reportable 02/14/21 09:24 Malaria parasites Not Reportable 02/14/21 09:24 Lucas Bodies Not Reportable 02/14/21 09:24 Hem Pathologist Commnt No 02/14/21 09:24 PT 16.9 Sec. (12.2-14.9) H 01/01/21 12:45 INR 1.39 (0.87-1.13) H 01/01/21 12:45 APTT 25.1 Sec. (24.2-36.6) 12/22/20 14:38 ABG pH 7.345 pH Units (7.350-7.450) L 01/07/21 17:14 POC ABG pCO2 41.4 mmHg (32.0-48.0) 01/07/21 03:07 ABG pCO2 40.3 mm Hg 01/07/21 17:14 POC ABG pO2 94.5 mmHg (83-108) 01/07/21 03:07 ABG pO2 67.4 mm Hg (80.0-90.0) L 01/07/21 17:14 POC ABG HCO3 22.7 01/07/21 03:07 ABG HCO3 21.5 mmol/L (20.0-26.0) 01/07/21 17:14 ABG O2 Saturation 94.3 % (95.0-99.0) L 01/07/21 17:14 ABG O2 Content 11.6 (0.0-44) 01/07/21 17:14 POC ABG Base Excess -2.7 01/07/21 03:07 ABG Base Excess -3.9 mmol/L (-2.0-3.0) L 01/07/21 17:14 ABG Hemoglobin 8.9 gm/dl (14.0-18.0) L 01/07/21 17:14 ABG Oxyhemoglobin 96.6 (94-98) 01/07/21 03:07 ABG Carboxyhemoglobin 1.5 % (0.0-5.0) 01/07/21 17:14 ABG Methemoglobin 0.6 % (0.0-1.5) 01/07/21 17:14 ABG Sodium 135.6 mmol/L (136.0-145.0) L 01/07/21 03:07 ABG Potassium 4.0 mmol/L (3.40-4.50) 01/07/21 03:07 ABG Chloride 102.0 mmol/L (98-107) 01/07/21 03:07 ABG Glucose 181 mg/dL (65-95) H 01/07/21 03:07 Oxyhemoglobin 92.3 % (95.0-99.0) L 01/07/21 17:14 Carboxyhemoglobin 0.7 (0.5-1.5) 01/07/21 03:07 FiO2 21 % 01/07/21 17:14 FiO2 % 45.0 01/07/21 03:07 Sodium 135 mmol/L (137-145) L 02/16/21 05:24 Potassium 3.6 mmol/L (3.6-5.0) 02/16/21 05:24 Chloride 98.5 mmol/L (98-107) 02/16/21 05:24 Carbon Dioxide 26 mmol/L (22-30) 02/16/21 05:24 Anion Gap 14 mmol/L 02/16/21 05:24 BUN 36 mg/dL (9-20) H 02/16/21 05:24 Creatinine 6.4 mg/dL (0.8-1.3) H 02/16/21 05:24 Estimated GFR 11 ml/min 02/16/21 05:24 BUN/Creatinine Ratio 6 % 02/16/21 05:24 Glucose 128 mg/dL (75-100) H 02/16/21 05:24 POC Glucose 109 mg/dL (70-105) H 02/17/21 11:28 Lactic Acid 1.70 mmol/L (0.7-2.0) 02/14/21 09:24 Calcium 8.3 mg/dL (8.4-10.2) L 02/16/21 05:24 Phosphorus 2.60 mg/dL (2.5-4.5) 02/16/21 05:24 Magnesium 1.60 mg/dL (1.7-2.3) L 02/16/21 05:24 Iron 39 ug/dL (49-181) L 02/16/21 15:23 TIBC 154 mcg/dL (250-450) L 02/16/21 15:23 % Saturation 25.32 % 02/16/21 15:23 Transferrin 134 mg/dl (180-329) L 02/16/21 15:23 Ferritin 4086.0 ng/mL (30.0-300.0) H 02/16/21 15:23 Total Bilirubin 0.50 mg/dL (0.1-1.2) 02/13/21 06:05 AST 14 units/L (5-40) 02/13/21 06:05 ALT 20 units/L (7-56) 02/13/21 06:05 Alkaline Phosphatase 149 units/L (35-129) H 02/13/21 06:05 Ammonia 30.0 umol/L (25-60) 12/22/20 14:38 Troponin T 0.021 ng/mL (0.00-0.029) 12/22/20 14:38 Total Protein 5.9 g/dL (6.3-8.2) L 02/13/21 06:05 Albumin 3.2 g/dL (3.9-5) L 02/13/21 06:05 Albumin/Globulin Ratio 1.2 % 02/13/21 06:05 Triglycerides 72 mg/dL (2-149) 01/30/21 04:15 Lipase 41 units/L (13-60) 12/22/20 14:38 Procalcitonin 27.86 ng/mL (<0.15) 02/14/21 09:24 TSH 1.470 mlU/mL (0.270-4.200) 12/28/20 19:44 Arterial Blood Glucose 181 mg/dL (65-95) H 01/07/21 03:07 Arterial Blood Ionized Calcium 4.3 mg/dL (4.6-5.3) L 01/07/21 03:07 Urine Color Yellow (Yellow) 12/22/20 18:53 Urine Turbidity Clear (Clear) 12/22/20 18:53 Urine pH 7.0 (5.0-7.0) 12/22/20 18:53 Ur Specific [place] 1.012 (1.003-1.030) 12/22/20 18:53 Urine Protein >500 mg/dL (Negative) 12/22/20 18:53 Urine Glucose (UA) Neg mg/dL (Negative) 12/22/20 18:53 Urine Ketones Neg mg/dL (Negative) 12/22/20 18:53 Urine Blood Neg (Negative) 12/22/20 18:53 Urine Nitrite Neg (Negative) 12/22/20 18:53 Urine Bilirubin Neg (Negative) 12/22/20 18:53 Urine Urobilinogen < 2.0 mg/dL (<2.0) 12/22/20 18:53 Ur Leukocyte Esterase Neg (Negative) 12/22/20 18:53 Urine WBC (Auto) < 1.0 /HPF (0.0-6.0) 12/22/20 18:53 Urine RBC (Auto) 1.0 /HPF (0.0-6.0) 12/22/20 18:53 Fluid Type Dialysate 12/22/20 Unknown Fluid Color Colorless 12/22/20 Unknown Fluid Appearance Cloudy 12/22/20 Unknown Fluid WBC 208 /mm3 12/22/20 Unknown Fluid RBC 45 /mm3 12/22/20 Unknown Fluid Seg Neutrophils 82.0 % 12/22/20 Unknown Fluid Lymphocytes 11.0 % 12/22/20 Unknown Fluid Reactive Lymphs 0 % 12/22/20 Unknown Fluid Monocytes 7.0 % 12/22/20 Unknown Fluid Eosinophils 0 % 12/22/20 Unknown Fluid Basophils 0 % 12/22/20 Unknown Random Vancomycin 11.1 ug/mL (0-40.0) 02/16/21 05:24 Digoxin 0.9 ng/mL (0.9-2.0) 02/04/21 05:40 Coronavirus (PCR) Negative (Negative) 02/13/21 Unknown Hepatitis A IgM Ab Non-reactive (NonReactive) 02/02/21 12:41 Hep Bs Antigen Non-reactive (Negative) 02/02/21 12:41 Hep B Core IgM Ab Non-reactive (NonReactive) 02/02/21 12:41 Hepatitis C Antibody Non-reactive (NonReactive) 02/02/21 12:41 Blood Type A POSITIVE 01/06/21 07:10 Antibody Screen Negative 01/06/21 07:10 Crossmatch See Detail 01/06/21 07:10 Microbiology: Microbiology 02/16/21 15:43 Peripheral/Venous Blood Culture - Preliminary Culture in Progress 02/16/21 15:23 Peripheral/Venous Blood Culture - Preliminary Culture in Progress Jeffery/IV: Voiding Method Bedside Commode Active Medications - Current Medications Current Medications: Generic Name Dose Route Start Last Admin Trade Name Freq PRN Reason Stop Dose Admin Acetaminophen 650 mg 02/14/21 09:00 02/14/21 16:34 Acetaminophen 325 Mg Tab PO 650 mg Q6H PRN Administration Pain, Mild (1-3) Clonidine HCl 0.2 mg 01/11/21 10:00 02/15/21 11:36 Clonidine Tts 0.2 Mg/24 Hr Patch TD Not Given We THOMAS Dextrose 50 ml 01/14/21 17:59 01/18/21 15:10 Dextrose 50% In Water (25gm) 50 Ml Syringe IV 20 ml Q30MIN PRN Administration Hypoglycemia Protocol Digoxin 0.125 mg 02/04/21 10:00 02/16/21 09:44 Digoxin 0.125 Mg Tab PO 0.125 mg Q48HR THOMAS Administration Diphenhydramine HCl 50 mg 01/20/21 10:10 02/01/21 14:15 Diphenhydramine 50 Mg/Ml Vial IV 50 mg Q6H PRN Administration Itching Diphenoxylate HCl/Atropine 1 tab 02/06/21 18:00 02/17/21 05:39 Diphenoxylate/Atropine Tab PO 1 tab Q6H THOMAS Administration Famotidine 10 mg 12/24/20 13:00 02/17/21 11:38 Famotidine 20 Mg/2 Ml Inj IV 10 mg BID THOMAS Administration Fluticasone Propionate 50 mcg 02/07/21 10:00 02/16/21 09:45 Fluticasone Propionate Nasal [place] 16 Gm NS 50 mcg QDAY THOMAS Administration Haloperidol Lactate 5 mg 12/29/20 14:16 01/22/21 23:56 Haloperidol Lactate 5 Mg/1 Ml Inj IV 5 mg Q12H PRN Administration Agitation Heparin Sodium (Porcine) 5,000 unit 12/24/20 10:00 02/17/21 11:37 Heparin 5,000 Unit/1 Ml Vial SUB-Q 5,000 unit Q12HR THOMAS Administration Hydralazine HCl 10 mg 01/10/21 14:00 02/17/21 05:29 Hydralazine 20 Mg/1 Ml Inj IV 10 mg Q4HR THOMAS Administration Hydrocortisone Acetate 1 applic 02/01/21 18:43 Hydrocortisone 1% Cream 28.4gm TP Q8H PRN Skin Irritation Hydromorphone HCl 0.25 mg 01/09/21 10:53 02/15/21 22:47 Hydromorphone 1 Mg/1 Ml Inj IV 0.25 mg Q6H PRN Administration Pain , Severe (7-10) Sodium Chloride 100 mls @ 999 mls/hr 02/16/21 10:00 Nacl 0.9% IV RYLAND PRN Hypotension Amino Acids/Electrolytes/Dextrose 2,016 mls @ 84 mls/hr 02/16/21 20:00 02/16/21 22:07 Tpn Adult IV 02/17/21 19:59 Not Given DAILY@[email or web address] [facility] Protocol Dextrose 1,000 mls @ 84 mls/hr 02/16/21 23:00 02/16/21 22:19 D10w IV 84 mls/hr DIRECT THOMAS Administration Vancomycin HCl 1,250 mg/ 275 mls @ 166.667 mls/hr 02/17/21 11:00 02/17/21 11:36 Sodium Chloride IV 02/17/21 12:38 166.667 mls/hr ONCE ONE Administration Fat Emulsion Intravenous 250 mls @ 21 mls/hr 02/17/21 20:00 Intralipid 20% IV 02/18/21 08:00 DAILY@[email or web address] [facility] Insulin Glargine 5 units 01/18/21 22:00 02/16/21 22:17 Insulin Glargine 100 Units/Ml SUB-Q 5 units QHS THOMAS Administration Insulin Human Lispro 0 unit 01/03/21 12:00 02/17/21 05:26 Insulin Lispro 100 Unit/Ml SUB-Q Not Given Q6HR [facility] Protocol Metoprolol Tartrate 25 mg 02/14/21 14:00 02/17/21 05:29 Metoprolol Tartrate 25 Mg Tab PO 25 mg Q8HR THOMAS Administration Morphine Sulfate 2 mg 02/02/21 12:00 02/03/21 13:31 Morphine 2 Mg/1 Ml Inj IV 2 mg Q3H PRN Administration Pain, Moderate (4-6) Ondansetron HCl 4 mg 01/25/21 11:56 02/16/21 07:06 Ondansetron 4 Mg/2 Ml Inj IV 4 mg Q4H PRN Administration Nausea And Vomiting Scopolamine 1 each 01/15/21 11:00 02/14/21 12:24 Scopolamine Transdermal Patch 72 Hr TD 1 each Q3D THOMAS Administration Sodium Chloride 10 ml 12/22/20 22:00 02/17/21 11:54 Sodium Chloride 0.9% 10 Ml Flush Syringe IV 10 ml BID THOMAS Administration Sodium Chloride 10 ml 12/22/20 19:42 01/29/21 02:08 Sodium Chloride 0.9% 10 Ml Flush Syringe IV 10 ml PRN PRN Administration LINE FLUSH Nutrition/Malnutrition Assess - Dietary Evaluation Nutrition/Malnutrition Findings: Nutrition Notes Start: 12/24/20 12:36 Freq: Status: Active Protocol: Document 02/17/21 08:47 CW (Rec: 02/17/21 09:02 CW [id number]) Nutrition Notes Initial or Follow up Reassessment Current Diagnosis CKD (stage V CKD),Sepsis, Hypertension,Heart Failure, Small Bowel Obstruction Other Pertinent Diagnosis onHD, s/p exp lap, s/p bowel resections, afib Current Diet CPN at 84 ml/hr+ Clear Liquids Labs/Tests no new labs Pertinent Medications lomotil Height 5 ft 7 in Weight 84 kg [place] Body Weight (kg) 67.27 BMI 29.0 Weight Status Overweight Subjective/Other Information Day 54 TPN Percent of energy/protein needs met: 85%/100% Burn Absent Trauma Absent GI Symptoms Diarrhea Current % PO Negligible Minimum of two criteria No Reduced Loop Cutter Strength Measurably Reduced (severe) #2 Nutrition Diagnosis Increased nutrient needs ( specify in comment below) Diagnosis Progress(for reassessment Continues documentation) #1 Nutrition Diagnosis Inadequate oral intake Diagnosis Progress(for reassessment Continues documentation) Is patient on ventilator? No Is Patient Ambulatory and/or Out of Bed Yes REE-([facility]-ambulatory/OOB) [ [id number] [id number]] Calculation Used for Recommendations [facility] Additional Notes Pro needs 1.2-1.3g/k- 109g/day Fluid needs per MD. Nutrition Intervention Change Diet Order: Continue CPN Nutrition Support: Continue CPN at 84 ml/hr: MVI, lipids Osmolality: 1633. Kcal 2,130 Protein (gm) 110 Carbohydrates (gm) 350 Fat (gm) 50 Fluid (mL) 2,016 Fiber (gm) 0 Goal #1 Meet at least 75% of estimated energy and protein needs via CPN Follow-Up By: 02/18/21 Additional Comments FU for wt and TPN; Labs in AM: BMP, Mg, phos, - Malnutrition Assessment Minimum of two criteria: Yes - Attestation Statement I have reviewed and agreed w/ Malnutrition eval & tx plan: Yes
--- NOTE | 2021-02-17 12:57 | Progress Note ---
Assessment and Plan Cultures: 12/22/2020 blood culture: Streptococcus bovis, Prevotella 12/22/2020 PD fluid culture: No growth 12/24/2020 tracheal aspirate culture: No growth 12/24/2020 blood culture: No growth 12/31/2020 sputum culture: No growth 02/14/2021 blood culture: GPC in both sets 02/16/2021 blood culture: in process A/P: 60-year-old male with ESRD on PD, Crohn's disease, CHF, gastroesophageal reflux disease was admitted to the hospital with complaints of abdominal pain and fever: #New onset sepsis, secondary to GPC bacteremia: CXR without pneumonia. ?line infection. Both lines removed on 02/16/2021. #Small bowel obstruction/necrotic bowel: with concern for PD associated periton itis: Nephrology and general surgery following. Status post exploratory laparotomy on 12/23/2020 with extensive lysis, primary anastomosis, found to have necrotic segment of small bowel. PD catheter remains in place. S/p ex lap, resection of perforated anastamosis, washout and abthera wound vac placement on 01/01. Repeat CT abdomen showed no new abscesses, noted small free fluid. S/p Exploratory laparotomy, Right hemicolectomy, Peritoneal lavage, Partial omentectomy, ABThera wound VAC placement on 01/03/2021. #Streptococcus bovis bacteremia and Prevotella bacteremia: secondary to above. TTE without obvious vegetations. Repeat blood cultures negative. #ESRD: Renally dose antibiotics. Used to be on PD. On HD. Recs: -if repeat blood cultures from 02/16/2021 remain negative, okay to place a new HD catheter and a central line on 02/20/2021. -TTE ordered -continue IV Vancomycin, target trough between 10 to 20 mcg/mL Discussed with Drs. Scott and Mary Kate Denny MD, FACP [facility] ([facility] O: [phone] F: [phone] Subjective Date of service: 02/17/21 Principal diagnosis: Ac hypoxemic resp failure; Severe Sepsis; Peritonitis; Acute SBO; ESRD; CHF Interval history: No fever. Had lines removed yesterday. Complaining of left arm swelling due to IV line. Objective - Exam Narrative Exam: Physical Exam: Constitutional: awake, alert, calm Head, Ears, Nose: Normocephalic, atraumatic. External ears, nose normal. Eyes: Conjunctivae/corneas clear. No icterus. No ptosis. Neck: supple Cardiovascular: S1, S2 + Respiratory: AE fair bilaterally GI: drains +, midline incision, bowel sounds + Musculoskeletal: No pedal edema, no cyanosis. Left arm swelling Skin: No rash or abscess Hem/Lymphatic: No palpable cervical or supraclavicular nodes. No lymphangitis Psych: calm, no agitation Neurological: awake, alert, oriented. - Constitutional Vitals: Vital Signs Temp Pulse Resp BP Pulse Ox 98.8 F 77 18 136/66 98 02/17/21 10:42 02/17/21 10:42 02/17/21 10:42 02/17/21 10:42 02/17/21 10:42 Temperature -Last 24 Hours Temperature 98.8 F Temperature 97.0 F Temperature 97.5 F Temperature 99.6 F Temperature 99.6 F Temperature 98.8 F Temperature 98.8 F Temperature 99.1 F Temperature 99.2 F Temperature 98.8 F - Labs CBC & Chem 7: 02/16/21 05:24 02/16/21 05:24 Labs: Abnormal lab results 02/16/21 02/16/21 02/17/21 Range/Units 15:23 15:23 11:28 POC Glucose 109 H (70-105) mg/dL Iron 39 L (49-181) ug/dL TIBC 154 L (250-450) mcg/dL Transferrin 134 L (180-329) mg/dl Ferritin 4086.0 H (30.0-300.0) ng/mL
--- NOTE | 2021-02-17 15:43 | Progress Note ---
Assessment and Plan Assessment: * ESRD previouaslyon peritoneal dialysis; now on back up HD (on peritoneal dialysis for 2 years with no history of peritonitis) * Small bowel obstruction --s/p ex-lap with jejuno-ileal anastamosis --s/p ex lap with extensive lysis of adhesions and two small bowel resections with primary anastamosis for SBO with necrotic segment small bowel. --s/p ex lap, resection of perforated anastamosis, washout and abthera wound vac placement. --s/p ex lap with right hemicolectomy. * Gram positive bacteremia * Septic shock - resolved * Hyperkalemia * Anemia of ESRD * Post op ileus * Paroxysmal atrial fibrillation * Hx of nonischemic cardiomyopathy, resolving --LVEF 50-55% by echo this presentation Plan: * Patient is s/p hemodialysis on Sat, Sat and * Permcath removed yesterday due to bacteremia * Reinsertion of permcath pending clearance of cultures * Epogen w/ dialysis -20k * Rate control per cardiology * Nutrition per primary team - currently receiving TPN * Recommend removing KCl from TPN as patient w/o HD access over the weekend * Maintatin MAP >65 * AM labs Subjective Date of service: 02/17/21 Principal diagnosis: Ac hypoxemic resp failure; Severe Sepsis; Peritonitis; Acute SBO; ESRD; CHF Interval history: Patient on bedside commode at time of visit. Exam deferred. Objective - Vital Signs Vital signs: Vital Signs - 12hr 02/17/21 02/17/21 02/17/21 05:07 07:47 10:42 Temperature 97.5 F L 97.0 F L 98.8 F Pulse Rate 95 H 75 77 Respiratory 18 18 18 Rate Blood Pressure 132/58 136/66 Blood Pressure 153/84 [Right] O2 Sat by Pulse 95 100 98 Oximetry - Lab 02/16/21 05:24 02/16/21 05:24 Most recent lab results ABG pH 7.345 pH Units (7.350-7.450) L 01/07/21 17:14 ABG pCO2 40.3 mm Hg 01/07/21 17:14 ABG pO2 67.4 mm Hg (80.0-90.0) L 01/07/21 17:14 ABG HCO3 21.5 mmol/L (20.0-26.0) 01/07/21 17:14 ABG O2 Saturation 94.3 % (95.0-99.0) L 01/07/21 17:14 Calcium 8.3 mg/dL (8.4-10.2) L 02/16/21 05:24 Phosphorus 2.60 mg/dL (2.5-4.5) 02/16/21 05:24 Magnesium 1.60 mg/dL (1.7-2.3) L 02/16/21 05:24 Medications & Allergies - Medications Allergies/Adverse Reactions: Allergies No Known Allergies Allergy (Verified 06/09/20 15:27) Home Medications: Home Medications Medication Instructions Recorded Confirmed Last Taken Type Albuterol Mdi (or & Nicu Only) 2 puff IH QID PRN #1 inhalation 04/01/17 02/05/21 10/31/20 09:00 Rx [ProAir HFA Inhaler] Calcium Acetate 667 mg PO DAILY 04/20/20 02/05/21 10/31/20 09:00 History Centrum Men's Tablet 1 tab PO DAILY 04/20/20 02/05/21 10/31/20 09:00 History Cinacalcet 30 mg PO DAILY 04/20/20 02/05/21 10/31/20 09:00 History Dialyvite with Zinc Tablet 1 tab PO DAILY 04/20/20 02/05/21 10/31/20 09:00 History Magnesium 250 mg PO BID 04/20/20 02/05/21 10/31/20 17:00 History Triamcinolone 0.1% 1 1000units TRANSDERMA DAILY 04/20/20 02/05/21 10/31/20 09:00 History Vit B12/Folic Acid/B6/Aa No.15 1,000 mg PO DAILY 04/20/20 02/05/21 10/31/20 09:00 History amLODIPine 10 mg PO DAILY 06/09/20 02/05/21 10/31/20 09:00 History AtorvaSTATin 40 mg PO HS 11/01/20 02/05/21 10/31/20 21:00 History Benadryl 25 mg PO HS 11/01/20 02/05/21 10/31/20 21:00 History Diclofenac 1 applic TRANSDERMA QID 11/01/20 02/05/21 10/31/20 19:00 History Fluticasone Propionate 1 spray INTRANASAL DAILY 11/01/20 02/05/21 10/31/20 09:00 History Vitamin D3 2,000 units PO QDAY 11/01/20 02/05/21 10/31/20 09:00 History carvediloL 12.5 mg PO DAILY 11/01/20 02/05/21 10/31/20 09:00 History hydrALAZINE 100 mg PO TID 11/01/20 02/05/21 10/31/20 19:00 History Active Medications: Generic Name Dose Route Start Last Admin Trade Name Freq PRN Reason Stop Dose Admin Acetaminophen 650 mg 02/14/21 09:00 02/14/21 16:34 Acetaminophen 325 Mg Tab PO 650 mg Q6H PRN Administration Pain, Mild (1-3) Clonidine HCl 0.2 mg 01/11/21 10:00 02/15/21 11:36 Clonidine Tts 0.2 Mg/24 Hr Patch TD Not Given We THOMAS Dextrose 50 ml 01/14/21 17:59 01/18/21 15:10 Dextrose 50% In Water (25gm) 50 Ml Syringe IV 20 ml Q30MIN PRN Administration Hypoglycemia Protocol Digoxin 0.125 mg 02/04/21 10:00 02/16/21 09:44 Digoxin 0.125 Mg Tab PO 0.125 mg Q48HR THOMAS Administration Diphenhydramine HCl 50 mg 01/20/21 10:10 02/01/21 14:15 Diphenhydramine 50 Mg/Ml Vial IV 50 mg Q6H PRN Administration Itching Diphenoxylate HCl/Atropine 1 tab 02/06/21 18:00 02/17/21 05:39 Diphenoxylate/Atropine Tab PO 1 tab Q6H THOMAS Administration Famotidine 10 mg 12/24/20 13:00 02/17/21 11:38 Famotidine 20 Mg/2 Ml Inj IV 10 mg BID THOMAS Administration Fluticasone Propionate 50 mcg 02/07/21 10:00 02/16/21 09:45 Fluticasone Propionate Nasal [place] 16 Gm NS 50 mcg QDAY THOMAS Administration Haloperidol Lactate 5 mg 12/29/20 14:16 01/22/21 23:56 Haloperidol Lactate 5 Mg/1 Ml Inj IV 5 mg Q12H PRN Administration Agitation Heparin Sodium (Porcine) 5,000 unit 12/24/20 10:00 02/17/21 11:37 Heparin 5,000 Unit/1 Ml Vial SUB-Q 5,000 unit Q12HR THOMAS Administration Hydralazine HCl 10 mg 01/10/21 14:00 02/17/21 05:29 Hydralazine 20 Mg/1 Ml Inj IV 10 mg Q4HR THOMAS Administration Hydrocortisone Acetate 1 applic 02/01/21 18:43 Hydrocortisone 1% Cream 28.4gm TP Q8H PRN Skin Irritation Hydromorphone HCl 0.25 mg 01/09/21 10:53 02/15/21 22:47 Hydromorphone 1 Mg/1 Ml Inj IV 0.25 mg Q6H PRN Administration Pain , Severe (7-10) Sodium Chloride 100 mls @ 999 mls/hr 02/16/21 10:00 Nacl 0.9% IV [place] PRN Hypotension Amino Acids/Electrolytes/Dextrose 2,016 mls @ 84 mls/hr 02/16/21 20:00 02/16/21 22:07 Tpn Adult IV 02/17/21 19:59 Not Given DAILY@1999 [facility] Protocol Dextrose 1,000 mls @ 84 mls/hr 02/16/21 23:00 02/16/21 22:19 D10w IV 84 mls/hr DIRECT THOMAS Administration Fat Emulsion Intravenous 250 mls @ 21 mls/hr 02/17/21 20:00 Intralipid 20% IV 02/18/21 08:00 DAILY@[email or web address] [facility] Amino Acids/Electrolytes/Dextrose 2,016 mls @ 84 mls/hr 02/17/21 20:00 Tpn Adult IV 02/18/21 19:59 DAILY@[email or web address] [facility] Protocol Insulin Glargine 5 units 01/18/21 22:00 02/16/21 22:17 Insulin Glargine 100 Units/Ml SUB-Q 5 units QHS THOMAS Administration Insulin Human Lispro 0 unit 01/03/21 12:00 02/17/21 05:26 Insulin Lispro 100 Unit/Ml SUB-Q Not Given Q6HR [facility] Protocol Metoprolol Tartrate 25 mg 02/14/21 14:00 02/17/21 05:29 Metoprolol Tartrate 25 Mg Tab PO 25 mg Q8HR THOMAS Administration Morphine Sulfate 2 mg 02/02/21 12:00 02/03/21 13:31 Morphine 2 Mg/1 Ml Inj IV 2 mg Q3H PRN Administration Pain, Moderate (4-6) Ondansetron HCl 4 mg 01/25/21 11:56 02/16/21 07:06 Ondansetron 4 Mg/2 Ml Inj IV 4 mg Q4H PRN Administration Nausea And Vomiting Scopolamine 1 each 01/15/21 11:00 02/14/21 12:24 Scopolamine Transdermal Patch 72 Hr TD 1 each Q3D THOMAS Administration Sodium Chloride 10 ml 12/22/20 22:00 02/17/21 11:54 Sodium Chloride 0.9% 10 Ml Flush Syringe IV 10 ml BID THOMAS Administration Sodium Chloride 10 ml 12/22/20 19:42 01/29/21 02:08 Sodium Chloride 0.9% 10 Ml Flush Syringe IV 10 ml PRN PRN Administration LINE FLUSH
[2021-02-17] MEDS: DEXTROSE 10% IN WATER 1,000 ML IV SCH (20:00)
[2021-02-17] MEDS ORDERED: FAT EMULSIONS 20% 250 ML IV SCH (20:00)
[2021-02-17] MEDS ORDERED: TOTAL PARENTERAL NUTRITION 2,016 ML IV SCH (20:00)
[2021-02-17] MEDS: INSULIN GLARGINE 100 UNITS/ML SUB-Q SCH (22:00)
[2021-02-18] MEDS: hydrALAZINE 20 MG/1 ML INJ IV SCH ×6 (02:00→22:52)
[2021-02-18] MEDS: METOPROLOL TARTRATE 25 MG TAB PO SCH ×3 (05:41→22:58)
[2021-02-18] MEDS: INSULIN LISPRO 100 UNIT/ML SUB-Q SCH ×4 (06:00→19:08)
[2021-02-18] MEDS: DIPHENOXYLATE/ATROPINE TAB PO SCH ×4 (06:00→18:21)
[2021-02-18 08:46] LABS: Calcium 8.5 mg/dL (8.4-10.2)
[2021-02-18 08:53] LABS: Basophils % (Auto) 0.3 % (0.0-1.8); Eosinophils # (Auto) 0.2 K/mm3 (0.0-0.4); Eosinophils % (Auto) 3.4 % (0.0-4.3); Hematocrit 21.7 % (35.5-45.6); Hemoglobin 7.4 gm/dl (11.8-15.2); Lymphocytes # (Auto) 0.7 K/mm3 (1.2-5.4); Lymphocytes % (Auto) 9.8 % (13.4-35.0); Mean Corpuscular HGB Conc 34 % (32-34); Mean Corpuscular Volume 91 fl (84-94); Monocytes # (Auto) 0.8 K/mm3 (0.0-0.8); Monocytes % (Auto) 12.2 % (0.0-7.3); Platelet Count 183 K/mm3 (140-440); Red Blood Count 2.38 M/mm3 (3.65-5.03); Red Cell Distribution Width 16.9 % (13.2-15.2)
[2021-02-18] MEDS: DIGOXIN 0.125 MG TAB PO SCH (09:17)
[2021-02-18] MEDS: FAMOTIDINE 20 MG/2 ML INJ IV SCH ×2 (09:18→22:00)
[2021-02-18] MEDS: HEPARIN 5,000 UNIT/1 ML VIAL SUB-Q SCH ×2 (09:18→22:00)
[2021-02-18] MEDS: FLUTICASONE PROPIONATE NASAL SPRAY 16 GM NS SCH (09:19)
--- NOTE | 2021-02-18 11:57 | Progress Note ---
Assessment and Plan Assessment and plan: Severe Sepsis with shock Streptococcus bovis bacteremia/Prevotella bacteremia Gwendolyn albicans tracheal aspirate Small bowel obstruction/necrotic bowel s/p ex lap with extensive lysis of adhesions, 2 small bowel resections with primary anastomosis, right hemicolectomy, jejunal colonic anastomosis, segmental small bowel resection Postoperative ileus Atrial fibrillation with RVR Leukocytosis Hypochloremia Gwendolyn albicans in tracheal aspirate from 12/24 ESRD on PD, PermCath to be placed Transaminitis Systolic CHF(EF 35%) Crohn's disease Hypertension Hypokalemia and hypophosphatemia -[facility], surgery, infectious disease, nephrology, vascular surgery, cardiology consulted, appreciate recommendations -12/24 S/p ex lap with extensive expectations, 2 small bowel resections with primary anastomosis with surgery on 12/23 -s/p PICC and Permacath placement with vascular surgery on 12/27 -Extubated on 12/28, reintubated 12/31 for respiratory distress and extubated 01/08 -12/29 echocardiogram shows moderate concentric LVH, small pericardial effusion, transmitral Doppler flow pattern is grade 1 abnormal relaxation pattern, left- ventricular systolic function normal, LVEF 50 to 55%, no wall motion abnormalities. -01/01 CT abdomen/pelvis shows small pericardial effusion, mild coronary artery atherosclerotic calcification, small bilateral pleural effusions with associated volume loss, no convincing evidence of bowel obstruction or inflammation, postoperative changes from interval/recent midline laparotomy with a moderate amount of free fluid throughout the abdomen, small amount of dependent free air presumably postoperative -01/02 s/p ex lap, resection of perforated anastamosis, washout and abthera wound vac placement. -01/04 s/p ex lap with right hemicolectomy. -01/06 s/p exploratory laparotomy, Jejunal colonic anastomosis, Segmental small bowel resection. -s/p Vasopressor support with Levophed and vasopressin -Transitioned to HD from PD -HD per nephro, Epogen with HD -Strict NPO -cont TPN, Octreotide drip -s/p NGT to LIWS, now placed on G-tube for decompression - s/p rectal tube -s/p IV antibiotics -Tobacco abuse cessation counseling -Trend CBC, BMP DVT/GI prophylaxis: PPI, heparin subcu, SCDs to bilateral lower extremities while in bed Brief Course: This is a 60 YO Male with ESRD on PD, GERD, Crohn's Disease, Nicotine Dependence, HTN, Systolic CHF(EF 35%) who presented to the emergency department on 12/22 with complaints of abdominal pain which began shortly after eating fast food rated 10/10 which is periumbilical, constant, associated with fever, nausea and multiple sites of vomiting and self-reported inability to undergo PD. In the emergency room patient underwent a CT scan of the abdomen/pelvis which revealed evidence of partial small bowel obstruction, symptoms were consistent with bacterial peritonitis. Patient was admitted to the hospital service with sepsis, peritonitis, and small bowel obstruction with consults to general surgery, nephrology, infectious disease and [facility]. Daily clinical course: 12/23. Patient had temperature 101.2 F, tachycardia and elevated lactic acid on admission. Meet sepsis criteria. Started on IV antibiotics. ID has been consulted. Surgery consulted this a.m.-advised laparoscopy. He remains on NG tube connected to suction. 12/24. Patient was noted to have peritonitis yesterday and patient undergoing exploratory laparotomy. Patient remained intubated after procedure and is in ICU. Now on broad-spectrum antibiotics. ID on board. 12/25. Remains mechanically ventilated and sedated. Temp 103 Fahrenheit. Antibiotics broadened-ID added fluconazole and Flagyl. Blood cultures ordered. Plan to repeat CT abdomen tomorrow if not better. Surgery following. 12/26: Patient remains on mechanical ventilation on CMV tidal line 550, rate of 14, PEEP of 8 and 30% FiO2 and sedated on fentanyl 4 micrograms. Today we will remove his Jeffery and [facility] dropped his rate controlled him on CPAP. We will trend CBC given recent drop in H/H. 12/27: Patient remains intubated on CMV tidal volume 550, rate 12, PEEP 8 on 30% FiO2 at the time my examination. Patient's TPN will be changed to PPN. Adebayo dueñas's fentanyl drip will be changed to IV push fentanyl and have a permacath placed today and midline. Patient was placed on a spontaneous breathing trial was switched back to CMV prior to procedure. 12/28: Patient on fentanyl but awake and follows commands. At the time of my examination he was on a CPAP trial and is scheduled to receive HD today. s/o permacath and PICC placement with vascular yesterday. His blood culture grew Prevotella and addition to Streptococcus bovis. This evening Dr. Spicer attempted to extubate the patient and his heart rate went to the 180s. Stat EKG obtained and cardiology consulted. 12/29: Patient was started on amiodarone IV for A. fib RVR yesterday and today he is more rate controlled into the 70s and 80s. Patient was extubated yesterday and is currently on Ventimask. Patient will be transferred to [facility]. Patient continues to be n.p.o. with TPN and NG tube to LIS. He is hypokalemic today which was repleted. 12/30; patient was on IV amiodarone for treatment with RVR, rate is controlled. Patient was off oxygen. patient is n.p.o. and on TPN. Surgery is following the patient. 12/31: Patient was intubated overnight for respiratory distress and this morning on examination he was on assist control tidal volume 450, rate 20, PEEP 6, 100% FiO2 and RT was getting a ABG to adjust vent settings. Patient had a acute bump in WBC and per ID recommendations we will obtain a CT abdomen/pelvis if leukocytosis persist. Patient is on TPN and sedated with Levophed. Patient is also on vasopressor support with Levophed. Per surgery his ileus is resolving however will maintain OGT to LIWS. 01/01: Patient was started on a vasopressin yesterday late evening. This morning patient is on 20 mcg of Levophed and 0.03 vasopressin and sedated on 20 mcg of propofol. Patient WBC increased today and he is hypokalemic. We will treat hyperkalemia. Patient had a CT chest and abdomen/pelvis pending. The time examination total of 450, rate 20, PEEP of 6 and 35 percent FiO2. Per RN, Dr Pollock has stated that the patient will be returning to the OR today for likely anastomosis seen on CT abdomen/pelvis. 01/02: Patient noted, WBC improving, but noted to have anemia, will transfuse additional unit of Blood and repeat H/H. continue supportive care. 01/03: Continue to wean pressors, ABX PER ID, patient to return to OR today for washout and possible closure, CONTINUE TPN 01/04: Continues to show some improvement. Today is POD#12 s/p ex lap with extensive lysis of adhesions and two small bowel resections with primary anastamosis for SBO with necrotic segment small bowel. POD#3 s/p ex lap, resection of perforated anastamosis, washout and abthera wound vac placement. POD#1 s/p ex lap with right hemicolectomy. Surgery planning to take back to the OR on Saturday with the hope to anastamos ileum to transverse colon and close abdomen. keep NGT to suction. Pt in deep sedation due to open abdomen. Per ID - Continue IV Zosyn, renally dosed for Strep bacteremia treatment till 01/06/2021 -On TPN 01/05: Patient continues on HD, anticipate return to OR tomorrow for closure and anastemosis. Continues with deep sedation due to open abdomen 01/06: Continue supportive care, monitor pressures and electrolytes. He is post op Exploratory laparotomy, 2. Jejunal colonic anastomosis,3. Segmental small bowel resection and anastemosis closure today. Continue wound vac 01/07: Continue supportive care, Today is POD#15 s/p ex lap with extensive lysis of adhesions and two small bowel resections with primary anastamosis for SBO wit h necrotic segment small bowel. POD#6 s/p ex lap, resection of perforated anastamosis, washout and abthera wound vac placement. POD#4 s/p ex lap with right hemicolectomy. POD #1 exploratory laparotomy, 2. Jejunal colonic anastomosis,3. Segmental small bowel resection. Continue to monitor and sruthi ect electrolytes. Patient remains on fentanyl and TPN with lipids. Still hypoactive bowel sounds. 16: Patient now extubated, asked when he can go home, Still lethargic. Continue wound management, wound vac, Will need Rehab eval prior to discharge. 01/09: Patient remains on TPN, was started on labetalol drip per cardiology, patient had uncontrolled hypertension today however he cannot be given p.o. medications ileus resolves per surgery. Patient received hemodialysis today. NG tube remains to low intermittent suction. 01/10: Patient has some leukocytosis, slight hypokalemia and hyponatremia, metabolic acidosis. NG tube to LIWS, continue TPN. Patient will be downgraded to IMCU today. [facility] is working on placement. Will change frequency of hydralazine and discontinue labetalol drip. We will obtain a.m. BMP/mag/Phos and CBC. Infectious disease will like to start Zosyn if leukocytosis continues to worsen. 01/11: Patient leukocytosis has slightly improved potassium with in normal limits and other electrolytes are elevated but patient is scheduled for HD today. Remains on RA and A,A,Ox4. BP better controlled but remains elevated and we will increase clonidine dose. 01/12/2021; patient's blood pressure is better after dialysis and as needed IV medications and clonidine patch. Patient is followed by general surgery. Patient was alert and oriented and asked when he is going home. 01/13: Surgery is concerned about a leak at his anastamosis given increased output and will treat as controlled fistula and start an octreotide drip. And per surgery if he requires operative intervention will likely need to be left in discontinuity and eventual ileostomy as he has already failed two anastamoses. Patient still has tongue swelling and slurred speech. He is on Benadryl. 01/14: Patient's tongue swelling is improved, patient is alert and oriented, CAM ICU negative. Continue NG tube to low wall intermittent suction. Leukocytosis is improving. Hypomagnesemia resolved. Epogen with HD 01/15: Patient tongue swelling is much improved, bladder scan completed by bedside RN and he needed to be straight cathed. NGT output decreased. Leukocytosis improving. Patient has been having episodes of hypoglycemia during the day and he is on cyclic TPN, Lantus rescheduled to nightly and dosage decreased. 01/16: Continue management per ID and surgery. Will defer repeat CT of the abdomen to the team surgery has been approved by nephrology. Continue current diet and advance all to ice if okay with surgery discussed with nursing staff. 01/17: Discussed surgical recommendation of strict n.p.o. except for small amount of ice as patient has already failed to anastomosis. And risk for additional surgery with tissues were extremely friable from previous scar. He continues on octreotide drip to slow down GI output HARIS drain remains in place with NG suction for decompression. Patient verbalized understanding although stressed about being discharged. We will continue IMCU care unless otherwise advised by surgery. Prognosis remains guarded continue to monitor electrolytes considering GI output. 01/18: Continue supportive care, BP mildly elevated, continue to monitor, con tinue current therapy, if no return to PO soon may consider Increasing clonidine to 0.3, PO when ok with surgery. 01/19:Continue supportive care, Per ID continue IV Zosyn, plan to stop at 3 weeks from last surgery end date: 01/24/2021. Other management per surgery. Continue TPN. 01/20: Discussed with Surgery, will continue current management. Advised patient of the findings and plan. 01/21: Continue supportive care. Continue management per surgery advance diet when okay with surgery. Plan of care discussed with the patient in detail. 01/22: NG tube to be replaced explained to the patient why this is important. I agree with PT OT discussed with nursing staff very important to let the PT team know that they should manage HARIS drain while patient is ambulating so that he does not come out. Continue current management. Change in ocreotide to q8h and d/c drip NOTED 01/23: Continue supportive care, HD today, counselling provided to the patient on compliance with medical management 01/24: Replace NGT, Continue management per Surgery. POD 32. Mild hypokalemia noted, will replace. 01/25: Brief summary patient is a 60-year-old male admitted with abdominal pain and noted to have necrotic bowel concerning for PD associated peritonitis. Catheter was placed to convert to HD. Patient also underwent multiple surgical interventions. Initial cultures showed Streptococcus bovis bacteremia and Prevotella bacteremia a COLIN was without vegetations repeat blood cultures have b een negative. Part of the surgery is included ex lap, resection of perforated anastomosis, washout and a better wound VAC placement on 01/01. While progress has remained slow if has indeed shown some improvement. Patient is agitated about being in the hospital but understands the care management been provided his vital to his health and to prevent further surgeries. The NG tube has been pulled out 2 days ago he vehemently refused the tube being placed back but after a day of nausea with associated vomiting he was accepting of the chest tube to put back. He continues on TPN. We will continue to monitor electrolytes and correct as needed. This a.m. and erroneous blood was obtained likely from the same line as TPN repeat was done which showed normalizing factors. Patient completed antibiotics on 01/25/2020 . 01/26 Patient with severe sepsis with septic shock, small bowel obstruction, necrotic bowel s/p multiple surgeries. He complains of abdominal pain. No fever currently. He asked me when is he going home and i explained that he is not yet stable for discharge 01/27 Patient with severe sepsis with septic shock, small bowel obstruction, necrotic bowel s/p multiple surgeries. He complains of abdominal pain. No fever currently. Paroxysmal atrial fib managed by cardiology 01/28 Patient with severe sepsis with septic shock, small bowel obstruction, necrotic bowel s/p multiple surgeries. No fever currently. No abd pain currently. I discussed with Surgeon, Dr. Pollock. Continue current management. He also has paroxysmal afib, managed by Cardiology. 01/29 Patient with severe sepsis with septic shock, small bowel obstruction, necrotic bowel s/p multiple surgeries. No fever currently. No abd pain currently. I discussed with Surgeon, Dr. Pollock, yesterday. Continue current management. He also has paroxysmal afib, managed by Cardiology. He is on Metoprolol, Digoxin, Clonidine 01/30 Patient with severe sepsis with septic shock, small bowel obstruction, ne crotic bowel s/p multiple surgeries. Patient is a 60-year-old male admitted with abdominal pain and noted to have necrotic bowel concerning for PD associated peritonitis. Catheter was placed to convert to HD. Patient also underwent multiple surgical interventions. Initial cultures showed Strept ococcus bovis bacteremia and Prevotella bacteremia a COLIN was without vegetations repeat blood cultures have been negative. Part of the surgery is included ex lap, resection of perforated anastomosis, washout and a better wound VAC placement on 01/01. While progress has remained slow if has indeed shown some improvement. Patient is agitated about being in the hospital but understands the care management been provided his vital to his health and to prevent further surgeries. He continues on TPN. No fever currently. Less abdominal pain. Discussed with Surgeon, Dr. Pollock, few days ago. Continue current management. He also has paroxysmal afib, managed by Cardiology. He is on Metoprolol, Di goxin, Clonidine. ESRD on dialysis managed by Nephrology. 01/31: Continue HARIS drain suction. Ongoing treatment for anastomotic leak/controlled low output fistula. Maintain LIWS to NGT and monitor output. continue q 8h ocreotide. cont TPN. Defer to general surgery for NG tube discontinuation. 02/01: planned for g-tube placement for gastric decompression. Removed NG tube today. S/p HD -tolerated well : Status post G-tube placement today, resume TPN, patient is off from rectal tube. Continue supportive care and follow general surgery recommendation for discharge planning. Hemodialysis per schedule 02/03 -02/05: cont TPN, G-tube suction, Continue supportive care and follow general surgery recommendation for discharge planning. Hemodialysis per schedule. 02/06: Per surgery Anastamotic leak slowing down and is a controlled fistula. Continue HARIS drain suction. Since HARIS drain has continued to stay about 10ml over the last several days, plan to continue lower dose of octreotide. continue g-tube to drainage for decompression. continue clear liquids and closely monitor HARIS drain output. patient need LTAC placement. Continue to replace electrolytes and monitor phosphate level 02/07/2021; Per surgery Anastamotic leak slowing down and is a controlled fistula. Continue HARIS drain suction. Since HARIS drain has continued to stay about 10ml over the last several days, plan to continue lower dose of octreotide. continue g-tube to drainage for decompression. continue clear liquids and closely monitor HARIS drain output. patient need LTAC placement. Continue to replace electrolytes and monitor phosphate level. 02/08/2021; patient need to be transferred to LTAC. Patient expressed he wants to go home. 02/09/2021; pending LTAC placement 02/10/2021; pending LTAC placement 02/11/2021;case management continues to find a place to take him. General surgery is considering to discharge him home with home health, home TPN. 02/12/2021; patient expressed to go home. Put a consult for case management to arrange home health and home TPN. 02/13/2021; patient does not want to go to rehab or LTAC. I have discussed with case management about the option of getting home health and home PPN. Case management is working on it. 02/14: Patient now with fever Tmax 101.7, has been low grade prior, will recheck per my discussion with nursing staff. Will check CBC, Procalcitonin, blood clutu res, chest xray. Patient is a dialysis patient and has PICC line. From my understanding not returning blood. Will need to check integrity of the line. Nurse to call PICC team. Will like to monitor 24 hrs prior to planned discharge. Understand patient is still on TPN. 02/15: Recurrent spesis, in patient with mulitiple line and TPN, input from ID - f/u blood cultures. PER ID - continue empiric renally dosed Cefepime + Vancomycin + Flagyl + Micafungin (has indwelling lines and has been on TPN) - if no source is identified, may need abdominal imaging with CT with contrast coordinated with dialysis No new FEVER TODAY Continue supportive care. 02/16: Patient seen and examined, 4/4 Bottles positive GPC, ID input noted. Discussed with public administration teacher, vascular and the patient, all central lines will be removed following HD today. Continue antibiotics. 02/17/21 patient seen and examined. No new complain. Blood culture is positive for GPC. Repeat blood cultures ordered. Continue IV vancomycin. Continue current management. HD as per nephrology. Infectious disease follow-up. Recheck CBC BMP in the morning. 02/18/21 patient seen and examined. Patient feels better. No new complain. WBC 6.7. Hemoglobin 7.4. Blood culture from 02/14/2021 showed staph epidermidis. Most likely contamination we will follow the repeat blood culture. Continue IV vancomycin. Possible permacath placement on 02/20/2021 for hemodialysis. Infectious disease follow-up. Continue TPN. Recheck CBC BMP in the morning. History Interval history: Patient is seen and examined Labs and medication reviewed No new complaints. No fever no chills Hospitalist Physical - Constitutional Vitals: Temp Pulse Resp BP Pulse Ox 98.7 F 74 16 147/71 95 02/18/21 07:56 02/18/21 09:17 02/18/21 07:56 02/18/21 09:17 02/18/21 07:56 General appearance: Present: no acute distress - EENT Eyes: Present: PERRL, EOM intact ENT: hearing intact, clear oral mucosa, dentition normal - Neck Neck: Present: supple, normal ROM - Respiratory Respiratory effort: normal Respiratory: bilateral: diminished - Cardiovascular Rhythm: regular Heart Sounds: Present: S1 & S2 - Extremities Extremities: no ischemia Peripheral Pulses: within normal limits - Abdominal General gastrointestinal: soft, non-tender, normal bowel sounds - Integumentary Integumentary: Present: clear, warm - Psychiatric Psychiatric: appropriate mood/affect, intact judgment & insight - Neurologic Neurologic: CNII-XII intact, moves all extremities HEART Score - HEART Score Troponin: Troponin T 0.021 ng/mL (0.00-0.029) 12/22/20 14:38 Results - Labs CBC & Chem 7: 02/18/21 07:39 02/18/21 07:39 Labs: Laboratory Last Values WBC 6.7 K/mm3 (4.5-11.0) 02/18/21 07:39 RBC 2.38 M/mm3 (3.65-5.03) L 02/18/21 07:39 Hgb 7.4 gm/dl (11.8-15.2) L 02/18/21 07:39 Hct 21.7 % (35.5-45.6) L 02/18/21 07:39 MCV 91 fl (84-94) 02/18/21 07:39 MCH 31 pg (28-32) 02/18/21 07:39 MCHC 34 % (32-34) 02/18/21 07:39 RDW 16.9 % (13.2-15.2) H 02/18/21 07:39 Plt Count 183 K/mm3 (140-440) 02/18/21 07:39 Lymph % (Auto) 9.8 % (13.4-35.0) L 02/18/21 07:39 [place] % (Auto) 12.2 % (0.0-7.3) H 02/18/21 07:39 Eos % (Auto) 3.4 % (0.0-4.3) 02/18/21 07:39 Baso % (Auto) 0.3 % (0.0-1.8) 02/18/21 07:39 Lymph # (Auto) 0.7 K/mm3 (1.2-5.4) L 02/18/21 07:39 [place] # (Auto) 0.8 K/mm3 (0.0-0.8) 02/18/21 07:39 Eos # (Auto) 0.2 K/mm3 (0.0-0.4) 02/18/21 07:39 Baso # (Auto) 0.0 K/mm3 (0.0-0.1) 02/18/21 07:39 Add Manual Diff Complete 02/14/21 09:24 Total Counted 100 02/14/21 09:24 Seg Neutrophils % 74.3 % (40.0-70.0) H 02/18/21 07:39 Seg Neuts % (Manual) 91.0 % (40.0-70.0) H 02/14/21 09:24 Band Neutrophils % 1.0 % 02/14/21 09:24 Lymphocytes % (Manual) 6.0 % (13.4-35.0) L 02/14/21 09:24 Reactive Lymphs % (Man) 1.0 % 12/29/20 05:16 Monocytes % (Manual) 2.0 % (0.0-7.3) 02/14/21 09:24 Eosinophils % (Manual) 2.0 % (0.0-4.3) 12/29/20 05:16 Metamyelocytes % 2.0 % 12/29/20 05:16 Nucleated RBC % Not Reportable 02/14/21 09:24 Seg Neutrophils # 4.9 K/mm3 (1.8-7.7) 02/18/21 07:39 Seg Neutrophils # Man 16.6 K/mm3 (1.8-7.7) H 02/14/21 09:24 Band Neutrophils # 0.2 K/mm3 02/14/21 09:24 Lymphocytes # (Manual) 1.1 K/mm3 (1.2-5.4) L 02/14/21 09:24 Abs React Lymphs (Man) 0.0 K/mm3 02/14/21 09:24 Monocytes # (Manual) 0.4 K/mm3 (0.0-0.8) 02/14/21 09:24 Eosinophils # (Manual) 0.0 K/mm3 (0.0-0.4) 02/14/21 09:24 Basophils # (Manual) 0.0 K/mm3 (0.0-0.1) 02/14/21 09:24 Metamyelocytes # 0.0 K/mm3 02/14/21 09:24 Myelocytes # 0.0 K/mm3 02/14/21 09:24 Promyelocytes # 0.0 K/mm3 02/14/21 09:24 Blast Cells # 0.0 K/mm3 02/14/21 09:24 WBC Morphology Not Reportable 02/14/21 09:24 Hypersegmented Neuts Not Reportable 02/14/21 09:24 Hyposegmented Neuts Not Reportable 02/14/21 09:24 Hypogranular Neuts Not Reportable 02/14/21 09:24 Smudge Cells Not Reportable 02/14/21 09:24 Toxic Granulation Not Reportable 02/14/21 09:24 Toxic Vacuolation Not Reportable 02/14/21 09:24 Dohle Bodies Not Reportable 02/14/21 09:24 Pelger-Huet Anomaly Not Reportable 02/14/21 09:24 Lamar Rods Not Reportable 02/14/21 09:24 Platelet Estimate Consistent w auto 02/14/21 09:24 Clumped Platelets Not Reportable 02/14/21 09:24 Plt Clumps, EDTA Not Reportable 02/14/21 09:24 Large Platelets Rare 02/14/21 09:24 Giant Platelets Not Reportable 02/14/21 09:24 Platelet Satelliting Not Reportable 02/14/21 09:24 Plt Morphology Comment Not Reportable 02/14/21 09:24 RBC Morphology Not Reportable 02/14/21 09:24 Dimorphic RBCs Not Reportable 02/14/21 09:24 Polychromasia Few 02/14/21 09:24 Hypochromasia Not Reportable 02/14/21 09:24 Poikilocytosis Not Reportable 02/14/21 09:24 Anisocytosis 1+ 02/14/21 09:24 Microcytosis Not Reportable 02/14/21 09:24 Macrocytosis Not Reportable 02/14/21 09:24 Spherocytes Not Reportable 02/14/21 09:24 Pappenheimer Bodies Not Reportable 02/14/21 09:24 Sickle Cells Not Reportable 02/14/21 09:24 Target Cells Not Reportable 02/14/21 09:24 Tear Drop Cells Few 02/14/21 09:24 Ovalocytes Not Reportable 02/14/21 09:24 Helmet Cells Not Reportable 02/14/21 09:24 [place] Bodies Not Reportable 02/14/21 09:24 [place] Rings Not Reportable 02/14/21 09:24 [place] Cells Not Reportable 02/14/21 09:24 Bite Cells Not Reportable 02/14/21 09:24 Crenated Cell Not Reportable 02/14/21 09:24 Elliptocytes Not Reportable 02/14/21 09:24 Acanthocytes (Spur) Not Reportable 02/14/21 09:24 Rouleaux Not Reportable 02/14/21 09:24 Hemoglobin C Crystals Not Reportable 02/14/21 09:24 Schistocytes Not Reportable 02/14/21 09:24 Malaria parasites Not Reportable 02/14/21 09:24 Lucas Bodies Not Reportable 02/14/21 09:24 Hem Pathologist Commnt No 02/14/21 09:24 PT 16.9 Sec. (12.2-14.9) H 01/01/21 12:45 INR 1.39 (0.87-1.13) H 01/01/21 12:45 APTT 25.1 Sec. (24.2-36.6) 12/22/20 14:38 ABG pH 7.345 pH Units (7.350-7.450) L 01/07/21 17:14 POC ABG pCO2 41.4 mmHg (32.0-48.0) 01/07/21 03:07 ABG pCO2 40.3 mm Hg 01/07/21 17:14 POC ABG pO2 94.5 mmHg (83-108) 01/07/21 03:07 ABG pO2 67.4 mm Hg (80.0-90.0) L 01/07/21 17:14 POC ABG HCO3 22.7 01/07/21 03:07 ABG HCO3 21.5 mmol/L (20.0-26.0) 01/07/21 17:14 ABG O2 Saturation 94.3 % (95.0-99.0) L 01/07/21 17:14 ABG O2 Content 11.6 (0.0-44) 01/07/21 17:14 POC ABG Base Excess -2.7 01/07/21 03:07 ABG Base Excess -3.9 mmol/L (-2.0-3.0) L 01/07/21 17:14 ABG Hemoglobin 8.9 gm/dl (14.0-18.0) L 01/07/21 17:14 ABG Oxyhemoglobin 96.6 (94-98) 01/07/21 03:07 ABG Carboxyhemoglobin 1.5 % (0.0-5.0) 01/07/21 17:14 ABG Methemoglobin 0.6 % (0.0-1.5) 01/07/21 17:14 ABG Sodium 135.6 mmol/L (136.0-145.0) L 01/07/21 03:07 ABG Potassium 4.0 mmol/L (3.40-4.50) 01/07/21 03:07 ABG Chloride 102.0 mmol/L (98-107) 01/07/21 03:07 ABG Glucose 181 mg/dL (65-95) H 01/07/21 03:07 Oxyhemoglobin 92.3 % (95.0-99.0) L 01/07/21 17:14 Carboxyhemoglobin 0.7 (0.5-1.5) 01/07/21 03:07 FiO2 21 % 01/07/21 17:14 FiO2 % 45.0 01/07/21 03:07 Sodium 130 mmol/L (137-145) L 02/18/21 07:39 Potassium 3.6 mmol/L (3.6-5.0) 02/18/21 07:39 Chloride 94.0 mmol/L (98-107) L 02/18/21 07:39 Carbon Dioxide 23 mmol/L (22-30) 02/18/21 07:39 Anion Gap 17 mmol/L 02/18/21 07:39 BUN 30 mg/dL (9-20) H 02/18/21 07:39 Creatinine 7.8 mg/dL (0.8-1.3) H 02/18/21 07:39 Estimated GFR 9 ml/min 02/18/21 07:39 BUN/Creatinine Ratio 4 % 02/18/21 07:39 Glucose 103 mg/dL (75-100) H 02/18/21 07:39 POC Glucose 104 mg/dL (70-105) 02/18/21 06:04 Lactic Acid 1.70 mmol/L (0.7-2.0) 02/14/21 09:24 Calcium 8.5 mg/dL (8.4-10.2) 02/18/21 07:39 Phosphorus 2.40 mg/dL (2.5-4.5) L 02/18/21 07:39 Magnesium 1.40 mg/dL (1.7-2.3) L 02/18/21 07:39 Iron 39 ug/dL (49-181) L 02/16/21 15:23 TIBC 154 mcg/dL (250-450) L 02/16/21 15:23 % Saturation 25.32 % 02/16/21 15:23 Transferrin 134 mg/dl (180-329) L 02/16/21 15:23 Ferritin 4086.0 ng/mL (30.0-300.0) H 02/16/21 15:23 Total Bilirubin 0.50 mg/dL (0.1-1.2) 02/13/21 06:05 AST 14 units/L (5-40) 02/13/21 06:05 ALT 20 units/L (7-56) 02/13/21 06:05 Alkaline Phosphatase 149 units/L (35-129) H 02/13/21 06:05 Ammonia 30.0 umol/L (25-60) 12/22/20 14:38 Troponin T 0.021 ng/mL (0.00-0.029) 12/22/20 14:38 Total Protein 5.9 g/dL (6.3-8.2) L 02/13/21 06:05 Albumin 3.2 g/dL (3.9-5) L 02/13/21 06:05 Albumin/Globulin Ratio 1.2 % 02/13/21 06:05 Triglycerides 72 mg/dL (2-149) 01/30/21 04:15 Lipase 41 units/L (13-60) 12/22/20 14:38 Procalcitonin 27.86 ng/mL (<0.15) 02/14/21 09:24 TSH 1.470 mlU/mL (0.270-4.200) 12/28/20 19:44 Arterial Blood Glucose 181 mg/dL (65-95) H 01/07/21 03:07 Arterial Blood Ionized Calcium 4.3 mg/dL (4.6-5.3) L 01/07/21 03:07 Urine Color Yellow (Yellow) 12/22/20 18:53 Urine Turbidity Clear (Clear) 12/22/20 18:53 Urine pH 7.0 (5.0-7.0) 12/22/20 18:53 Ur Specific [place] 1.012 (1.003-1.030) 12/22/20 18:53 Urine Protein >500 mg/dL (Negative) 12/22/20 18:53 Urine Glucose (UA) Neg mg/dL (Negative) 12/22/20 18:53 Urine Ketones Neg mg/dL (Negative) 12/22/20 18:53 Urine Blood Neg (Negative) 12/22/20 18:53 Urine Nitrite Neg (Negative) 12/22/20 18:53 Urine Bilirubin Neg (Negative) 12/22/20 18:53 Urine Urobilinogen < 2.0 mg/dL (<2.0) 12/22/20 18:53 Ur Leukocyte Esterase Neg (Negative) 12/22/20 18:53 Urine WBC (Auto) < 1.0 /HPF (0.0-6.0) 12/22/20 18:53 Urine RBC (Auto) 1.0 /HPF (0.0-6.0) 12/22/20 18:53 Fluid Type Dialysate 12/22/20 Unknown Fluid Color Colorless 12/22/20 Unknown Fluid Appearance Cloudy 12/22/20 Unknown Fluid WBC 208 /mm3 12/22/20 Unknown Fluid RBC 45 /mm3 12/22/20 Unknown Fluid Seg Neutrophils 82.0 % 12/22/20 Unknown Fluid Lymphocytes 11.0 % 12/22/20 Unknown Fluid Reactive Lymphs 0 % 12/22/20 Unknown Fluid Monocytes 7.0 % 12/22/20 Unknown Fluid Eosinophils 0 % 12/22/20 Unknown Fluid Basophils 0 % 12/22/20 Unknown Random Vancomycin 11.1 ug/mL (0-40.0) 02/16/21 05:24 Digoxin 0.9 ng/mL (0.9-2.0) 02/04/21 05:40 Coronavirus (PCR) Negative (Negative) 02/13/21 Unknown Hepatitis A IgM Ab Non-reactive (NonReactive) 02/02/21 12:41 Hep Bs Antigen Non-reactive (Negative) 02/02/21 12:41 Hep B Core IgM Ab Non-reactive (NonReactive) 02/02/21 12:41 Hepatitis C Antibody Non-reactive (NonReactive) 02/02/21 12:41 Blood Type A POSITIVE 01/06/21 07:10 Antibody Screen Negative 01/06/21 07:10 Crossmatch See Detail 01/06/21 07:10 Microbiology: Microbiology 02/14/21 14:45 Peripheral/Venous Blood Culture - Preliminary Staphylococcus Epidermidis 02/16/21 15:43 Peripheral/Venous Blood Culture - Preliminary NO GROWTH AFTER 24 HOURS 02/16/21 15:23 Peripheral/Venous Blood Culture - Preliminary NO GROWTH AFTER 24 HOURS 02/14/21 14:45 Peripheral/Venous Blood Culture - Preliminary Staphylococcus Epidermidis Jeffery/IV: Voiding Method Bedside Commode Active Medications - Current Medications Current Medications: Generic Name Dose Route Start Last Admin Trade Name Freq PRN Reason Stop Dose Admin Acetaminophen 650 mg 02/14/21 09:00 02/14/21 16:34 Acetaminophen 325 Mg Tab PO 650 mg Q6H PRN Administration Pain, Mild (1-3) Clonidine HCl 0.2 mg 01/11/21 10:00 02/15/21 11:36 Clonidine Tts 0.2 Mg/24 Hr Patch TD Not Given We THOMAS Dextrose 50 ml 01/14/21 17:59 01/18/21 15:10 Dextrose 50% In Water (25gm) 50 Ml Syringe IV 20 ml Q30MIN PRN Administration Hypoglycemia Protocol Digoxin 0.125 mg 02/04/21 10:00 02/18/21 09:17 Digoxin 0.125 Mg Tab PO 0.125 mg Q48HR THOMAS Administration Diphenhydramine HCl 50 mg 01/20/21 10:10 02/01/21 14:15 Diphenhydramine 50 Mg/Ml Vial IV 50 mg Q6H PRN Administration Itching Diphenoxylate HCl/Atropine 1 tab 02/06/21 18:00 02/18/21 00:00 Diphenoxylate/Atropine Tab PO Not Given Q6H THOMAS Famotidine 10 mg 12/24/20 13:00 02/18/21 09:18 Famotidine 20 Mg/2 Ml Inj IV 10 mg BID THOMAS Administration Fluticasone Propionate 50 mcg 02/07/21 10:00 02/18/21 09:19 Fluticasone Propionate Nasal [place] 16 Gm NS 50 mcg QDAY THOMAS Administration Haloperidol Lactate 5 mg 12/29/20 14:16 01/22/21 23:56 Haloperidol Lactate 5 Mg/1 Ml Inj IV 5 mg Q12H PRN Administration Agitation Heparin Sodium (Porcine) 5,000 unit 12/24/20 10:00 02/18/21 09:18 Heparin 5,000 Unit/1 Ml Vial SUB-Q 5,000 unit Q12HR THOMAS Administration Hydralazine HCl 10 mg 01/10/21 14:00 02/18/21 09:17 Hydralazine 20 Mg/1 Ml Inj IV 10 mg Q4HR THOMAS Administration Hydrocortisone Acetate 1 applic 02/01/21 18:43 Hydrocortisone 1% Cream 28.4gm TP Q8H PRN Skin Irritation Hydromorphone HCl 0.25 mg 01/09/21 10:53 02/15/21 22:47 Hydromorphone 1 Mg/1 Ml Inj IV 0.25 mg Q6H PRN Administration Pain , Severe (7-10) Sodium Chloride 100 mls @ 999 mls/hr 02/16/21 10:00 Nacl 0.9% IV [place] PRN Hypotension Dextrose 1,000 mls @ 84 mls/hr 02/16/21 23:00 02/17/21 20:00 D10w IV 02/18/21 20:00 84 mls/hr DIRECT THOMAS Administration Amino Acids/Electrolytes/Dextrose 2,016 mls @ 84 mls/hr 02/17/21 20:00 02/17/21 20:00 Tpn Adult IV 02/18/21 19:59 Not Given DAILY@1999 [facility] Protocol Amino Acids/Electrolytes/Dextrose 2,016 mls @ 84 mls/hr 02/18/21 20:00 Tpn Adult IV 02/19/21 19:59 DAILY@1999 [facility] Protocol Insulin Glargine 5 units 01/18/21 22:00 02/17/21 22:00 Insulin Glargine 100 Units/Ml SUB-Q 5 units QHS [facility] Administration Insulin Human Lispro 0 unit 01/03/21 12:00 02/18/21 00:00 Insulin Lispro 100 Unit/Ml SUB-Q Not Given Q6HR [facility] Protocol Metoprolol Tartrate 25 mg 02/14/21 14:00 02/18/21 05:41 Metoprolol Tartrate 25 Mg Tab PO 25 mg Q8HR THOMAS Administration Morphine Sulfate 2 mg 02/02/21 12:00 02/03/21 13:31 Morphine 2 Mg/1 Ml Inj IV 2 mg Q3H PRN Administration Pain, Moderate (4-6) Ondansetron HCl 4 mg 01/25/21 11:56 02/16/21 07:06 Ondansetron 4 Mg/2 Ml Inj IV 4 mg Q4H PRN Administration Nausea And Vomiting Scopolamine 1 each 01/15/21 11:00 02/17/21 12:11 Scopolamine Transdermal Patch 72 Hr TD 1 each Q3D THOMAS Administration Sodium Chloride 10 ml 12/22/20 22:00 02/17/21 22:00 Sodium Chloride 0.9% 10 Ml Flush Syringe IV 10 ml BID THOMAS Administration Sodium Chloride 10 ml 12/22/20 19:42 01/29/21 02:08 Sodium Chloride 0.9% 10 Ml Flush Syringe IV 10 ml PRN PRN Administration LINE FLUSH Nutrition/Malnutrition Assess - Dietary Evaluation Nutrition/Malnutrition Findings: Nutrition Notes Start: 12/24/20 12:36 Freq: Status: Active Protocol: Document 02/18/21 09:33 CW (Rec: 02/18/21 10:11 CW [id number]) Nutrition Notes Initial or Follow up Reassessment Current Diagnosis CKD (stage V CKD),Sepsis, Hypertension,Heart Failure, Small Bowel Obstruction Other Pertinent Diagnosis onHD, s/p exp lap, s/p bowel resections, afib Current Diet CPN at 84 ml/hr+ Clear Liquids Labs/Tests Na 130 Cl 94 BUN 30 Cr 7.8 Phos 2.4 Mg1.4 Pertinent Medications reviewed Height 5 ft 7 in Weight 86 kg [place] Body Weight (kg) 67.27 BMI 29.7 Weight Status Overweight Subjective/Other Information Day [address] noted that pt has not recieved TPN x at least 36 hours. RN states it is d/t access change. RDs unaware of access change. Will switch to PPN at this time. Per RN it is possible central will be replaced saturday. Percent of energy/protein needs met: 0%/0% Burn Absent Trauma Absent GI Symptoms Diarrhea Current % PO Negligible Minimum of two criteria Yes Reduced Management Coordinator Strength Measurably Reduced (severe) #2 Nutrition Diagnosis Increased nutrient needs ( specify in comment below) Diagnosis Progress(for reassessment Continues documentation) #1 Nutrition Diagnosis Inadequate oral intake Diagnosis Progress(for reassessment Continues documentation) Is patient on ventilator? No Is Patient Ambulatory and/or Out of Bed Yes REE-([place]-St. Jeor-ambulatory/OOB) [ [id number] [id number]] Calculation Used for Recommendations [place]-St Jeor Additional Notes Pro needs 1.2-1.3g/k- 109g/day Fluid needs per MD. Nutrition Intervention Change Diet Order: Chnge PPN Nutrition Support: Change to PPN at 84 ml/hr/ MVI ; Osm 899 mosm; 7.4%D 2.9% AA; Na 160 mEq PHOS 30 mmol Kcal 742 Protein (gm) 58 Carbohydrates (gm) 150 Fat (gm) 0 Fluid (mL) 2,016 Fiber (gm) 0 Goal #1 Meet at least 75% of estimated energy and protein needs via PPN as best as possible Follow-Up By: 02/19/21 Additional Comments F/U for labs in AM; BMP Mg Phos. Line access - Malnutrition Assessment Minimum of two criteria: Yes - Attestation Statement I have reviewed and agreed w/ Malnutrition eval & tx plan: Yes
--- NOTE | 2021-02-18 12:34 | Event Note ---
Date: 02/18/21 Pt is currently maintaining sinus rhythm. Given underlying ESRD, will hold digoxin for now.
[2021-02-18] MEDS: DEXTROSE 10% IN WATER 1,000 ML IV SCH (14:04)
--- NOTE | 2021-02-18 14:09 | Event Note ---
Date: 02/18/21 Plan for tunneled permcath and tunneled PICC on saturday as long as BCx remain NGTD. NPO after MN on saturday (midnight saturday) for saturday
--- NOTE | 2021-02-18 16:20 | Progress Note ---
Assessment and Plan POD#53 s/p ex lap with extensive lysis of adhesions and two small bowel resections with primary anastamosis for SBO with necrotic segment small bowel. POD#44 s/p ex lap, resection of perforated anastamosis, washout and abthera wound vac placement. POD#42 s/p ex lap with right hemicolectomy. POD#40 s/p ex lap, with jejunal-colonic anastamosis and closure of abdomen. Febrile episode and stable. 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 1. CLD -> do not advance 2. Continue HARIS drain suction. HARIS drain must be secured and kept in place. 3. Patient will need to be on TPN for the foreseeable future due to inability to use his GI tract to the point of getting adequate nutrition from oral diet at this time. TPN was off for 2 days due to lack of adequate IV access. Changed to PPN per nutrition notes for the time being until central IV access obtained. 4. continue g-tube to drainage for decompression. 5. blood cultures +, continue abx per ID. 6. Pt tentatively scheduled for catheter replacement on Saturday. 7. DC planning - CM on board and working on dispo Thank you, please call with questions. Subjective Date of service: 02/18/21 Narrative: Pt seen and examined. No acute complaints. Having loose BMs. Tolerating clear liquids. Objective Vital Signs - 12hr 02/18/21 02/18/21 02/18/21 04:23 05:40 05:41 Temperature 98.4 F Pulse Rate 74 78 78 Respiratory 18 Rate Blood Pressure 144/87 148/88 148/88 O2 Sat by Pulse 97 Oximetry 02/18/21 02/18/21 02/18/21 07:56 09:17 11:45 Temperature 98.7 F 97.9 F Pulse Rate 74 74 83 Respiratory 16 16 Rate Blood Pressure 147/71 147/71 148/83 O2 Sat by Pulse 95 93 Oximetry 02/18/21 02/18/21 14:03 15:49 Temperature 98.4 F Pulse Rate 83 76 Respiratory 16 Rate Blood Pressure 112/68 157/78 O2 Sat by Pulse 97 Oximetry - General physical appearance Narrative Exam: Gen: AAOx3. NAD CV: s1, S2+ Resp: even and unlabored Abd: soft, NT, ND. G tube with no drainage in bag (5cc/24h), L sided HARIS in place, purulent - new dressing applied and secured (10cc/24h) - Labs 02/18/21 07:39 02/18/21 07:39 Diabetes panel 02/18/21 Range/Units 07:39 Sodium 130 L (137-145) mmol/L Potassium 3.6 (3.6-5.0) mmol/L Chloride 94.0 L (98-107) mmol/L Carbon Dioxide 23 (22-30) mmol/L BUN 30 H (9-20) mg/dL Creatinine 7.8 H (0.8-1.3) mg/dL Glucose 103 H (75-100) mg/dL Calcium 8.5 (8.4-10.2) mg/dL Calcium panel 02/18/21 Range/Units 07:39 Calcium 8.5 (8.4-10.2) mg/dL Phosphorus 2.40 L (2.5-4.5) mg/dL Pituitary panel 02/18/21 Range/Units 07:39 Sodium 130 L (137-145) mmol/L Potassium 3.6 (3.6-5.0) mmol/L Chloride 94.0 L (98-107) mmol/L Carbon Dioxide 23 (22-30) mmol/L BUN 30 H (9-20) mg/dL Creatinine 7.8 H (0.8-1.3) mg/dL Glucose 103 H (75-100) mg/dL Calcium 8.5 (8.4-10.2) mg/dL Adrenal panel 02/18/21 Range/Units 07:39 Sodium 130 L (137-145) mmol/L Potassium 3.6 (3.6-5.0) mmol/L Chloride 94.0 L (98-107) mmol/L Carbon Dioxide 23 (22-30) mmol/L BUN 30 H (9-20) mg/dL Creatinine 7.8 H (0.8-1.3) mg/dL Glucose 103 H (75-100) mg/dL Calcium 8.5 (8.4-10.2) mg/dL
--- NOTE | 2021-02-18 18:53 | Progress Note ---
Assessment and Plan Assessment: * ESRD previouaslyon peritoneal dialysis; now on back up HD (on peritoneal dialysis for 2 years with no history of peritonitis) * Small bowel obstruction --s/p ex-lap with jejuno-ileal anastamosis --s/p ex lap with extensive lysis of adhesions and two small bowel resections with primary anastamosis for SBO with necrotic segment small bowel. --s/p ex lap, resection of perforated anastamosis, washout and abthera wound vac placement. --s/p ex lap with right hemicolectomy. * Staph epi bacteremia * Septic shock - resolved * Hyperkalemia * Anemia of ESRD * Post op ileus * Paroxysmal atrial fibrillation * Hx of nonischemic cardiomyopathy, resolving --LVEF 50-55% by echo this presentation Plan: * Patient is s/p hemodialysis on Sat, Sat and * Permcath removed on due to bacteremia * Reinsertion of permcath pending clearance of cultures; he remains afebrile * Epogen w/ dialysis -20k * Rate control per cardiology * Nutrition per primary team - currently receiving TPN * Recommend removing KCl from TPN as patient w/o HD access over the weekend * Maintatin MAP >65 Subjective Date of service: 02/18/21 Principal diagnosis: Ac hypoxemic resp failure; Severe Sepsis; Peritonitis; Acute SBO; ESRD; CHF Interval history: Patient has no complaints today Objective - Vital Signs Vital signs: Vital Signs - 12hr 02/18/21 02/18/21 02/18/21 07:56 09:17 11:45 Temperature 98.7 F 97.9 F Pulse Rate 74 74 83 Respiratory 16 16 Rate Blood Pressure 147/71 147/71 148/83 O2 Sat by Pulse 95 93 Oximetry 02/18/21 02/18/21 02/18/21 14:03 15:49 18:22 Temperature 98.4 F Pulse Rate 83 76 85 Respiratory 16 Rate Blood Pressure 112/68 157/78 147/85 O2 Sat by Pulse 97 Oximetry - General Appearance General appearance: well-developed, well-nourished EENT: ATNC Respiratory: Present: Clear to Ascultation Cardiology: regular, S1S2 Gastrointestinal: hypoactive bowel sounds, no distended Integumentary: no rash, warm and dry Neurologic: alert and oriented x3 Psychiatric: cooperative - Lab 02/18/21 07:39 02/18/21 07:39 Most recent lab results ABG pH 7.345 pH Units (7.350-7.450) L 01/07/21 17:14 ABG pCO2 40.3 mm Hg 01/07/21 17:14 ABG pO2 67.4 mm Hg (80.0-90.0) L 01/07/21 17:14 ABG HCO3 21.5 mmol/L (20.0-26.0) 01/07/21 17:14 ABG O2 Saturation 94.3 % (95.0-99.0) L 01/07/21 17:14 Calcium 8.5 mg/dL (8.4-10.2) 02/18/21 07:39 Phosphorus 2.40 mg/dL (2.5-4.5) L 02/18/21 07:39 Magnesium 1.40 mg/dL (1.7-2.3) L 02/18/21 07:39 Medications & Allergies - Medications Allergies/Adverse Reactions: Allergies No Known Allergies Allergy (Verified 06/09/20 15:27) Home Medications: Home Medications Medication Instructions Recorded Confirmed Last Taken Type Albuterol Mdi (or & Nicu Only) 2 puff IH QID PRN #1 inhalation 04/01/17 02/05/21 10/31/20 09:00 Rx [ProAir HFA Inhaler] Calcium Acetate 667 mg PO DAILY 04/20/20 02/05/21 10/31/20 09:00 History Centrum Men's Tablet 1 tab PO DAILY 04/20/20 02/05/21 10/31/20 09:00 History Cinacalcet 30 mg PO DAILY 04/20/20 02/05/21 10/31/20 09:00 History Dialyvite with Zinc Tablet 1 tab PO DAILY 04/20/20 02/05/21 10/31/20 09:00 Hist ory Magnesium 250 mg PO BID 04/20/20 02/05/21 10/31/20 17:00 History Triamcinolone 0.1% 1 1000units TRANSDERMA DAILY 04/20/20 02/05/21 10/31/20 09:00 History Vit B12/Folic Acid/B6/Aa No.15 1,000 mg PO DAILY 04/20/20 02/05/21 10/31/20 09:00 History amLODIPine 10 mg PO DAILY 06/09/20 02/05/21 10/31/20 09:00 History AtorvaSTATin 40 mg PO HS 11/01/20 02/05/21 10/31/20 21:00 History Benadryl 25 mg PO HS 11/01/20 02/05/21 10/31/20 21:00 History Diclofenac 1 applic TRANSDERMA QID 11/01/20 02/05/21 10/31/20 19:00 History Fluticasone Propionate 1 spray INTRANASAL DAILY 11/01/20 02/05/21 10/31/20 09:00 History Vitamin D3 2,000 units PO QDAY 11/01/20 02/05/21 10/31/20 09:00 History carvediloL 12.5 mg PO DAILY 11/01/20 02/05/21 10/31/20 09:00 History hydrALAZINE 100 mg PO TID 11/01/20 02/05/21 10/31/20 19:00 History Active Medications: Generic Name Dose Route Start Last Admin Trade Name Freq PRN Reason Stop Dose Admin Acetaminophen 650 mg 02/14/21 09:00 02/14/21 16:34 Acetaminophen 325 Mg Tab PO 650 mg Q6H PRN Administration Pain, Mild (1-3) Clonidine HCl 0.2 mg 01/11/21 10:00 02/15/21 11:36 Clonidine Tts 0.2 Mg/24 Hr Patch TD Not Given We THOMAS Dextrose 50 ml 01/14/21 17:59 01/18/21 15:10 Dextrose 50% In Water (25gm) 50 Ml Syringe IV 20 ml Q30MIN PRN Administration Hypoglycemia Protocol Diphenhydramine HCl 50 mg 01/20/21 10:10 02/01/21 14:15 Diphenhydramine 50 Mg/Ml Vial IV 50 mg Q6H PRN Administration Itching Diphenoxylate HCl/Atropine 1 tab 02/06/21 18:00 02/18/21 18:21 Diphenoxylate/Atropine Tab PO Not Given Q6H THOMAS Famotidine 10 mg 12/24/20 13:00 02/18/21 09:18 Famotidine 20 Mg/2 Ml Inj IV 10 mg BID THOMAS Administration Fluticasone Propionate 50 mcg 02/07/21 10:00 02/18/21 09:19 Fluticasone Propionate Nasal [place] 16 Gm NS 50 mcg QDAY THOMAS Administration Haloperidol Lactate 5 mg 12/29/20 14:16 01/22/21 23:56 Haloperidol Lactate 5 Mg/1 Ml Inj IV 5 mg Q12H PRN Administration Agitation Heparin Sodium (Porcine) 5,000 unit 12/24/20 10:00 02/18/21 09:18 Heparin 5,000 Unit/1 Ml Vial SUB-Q 5,000 unit Q12HR THOMAS Administration Hydralazine HCl 10 mg 01/10/21 14:00 02/18/21 18:22 Hydralazine 20 Mg/1 Ml Inj IV 10 mg Q4HR THOMAS Administration Hydrocortisone Acetate 1 applic 02/01/21 18:43 Hydrocortisone 1% Cream 28.4gm TP Q8H PRN Skin Irritation Hydromorphone HCl 0.25 mg 01/09/21 10:53 02/15/21 22:47 Hydromorphone 1 Mg/1 Ml Inj IV 0.25 mg Q6H PRN Administration Pain , Severe (7-10) Sodium Chloride 100 mls @ 999 mls/hr 02/16/21 10:00 Nacl 0.9% IV [place] PRN Hypotension Dextrose 1,000 mls @ 84 mls/hr 02/16/21 23:00 02/18/21 14:04 D10w IV 02/18/21 20:00 84 mls/hr DIRECT THOMAS Administration Amino Acids/Electrolytes/Dextrose 2,016 mls @ 84 mls/hr 02/17/21 20:00 02/17/21 20:00 Tpn Adult IV 02/18/21 19:59 Not Given DAILY@1999 [facility] Protocol Amino Acids/Electrolytes/Dextrose 2,016 mls @ 84 mls/hr 02/18/21 20:00 Tpn Adult IV 02/19/21 19:59 DAILY@1999 [facility] Protocol Insulin Glargine 5 units 01/18/21 22:00 02/17/21 22:00 Insulin Glargine 100 Units/Ml SUB-Q 5 units QHS THOMAS Administration Insulin Human Lispro 0 unit 01/03/21 12:00 02/18/21 12:36 Insulin Lispro 100 Unit/Ml SUB-Q Not Given Q6HR [facility] Protocol Metoprolol Tartrate 25 mg 02/14/21 14:00 02/18/21 14:03 Metoprolol Tartrate 25 Mg Tab PO 25 mg Q8HR THOMAS Administration Morphine Sulfate 2 mg 02/02/21 12:00 02/03/21 13:31 Morphine 2 Mg/1 Ml Inj IV 2 mg Q3H PRN Administration Pain, Moderate (4-6) Ondansetron HCl 4 mg 01/25/21 11:56 02/16/21 07:06 Ondansetron 4 Mg/2 Ml Inj IV 4 mg Q4H PRN Administration Nausea And Vomiting Scopolamine 1 each 01/15/21 11:00 02/17/21 12:11 Scopolamine Transdermal Patch 72 Hr TD 1 each Q3D THOMAS Administration Sodium Chloride 10 ml 12/22/20 22:00 02/18/21 12:48 Sodium Chloride 0.9% 10 Ml Flush Syringe IV Not Given BID THOMAS Sodium Chloride 10 ml 12/22/20 19:42 01/29/21 02:08 Sodium Chloride 0.9% 10 Ml Flush Syringe IV 10 ml PRN PRN Administration LINE FLUSH
[2021-02-18] MEDS ORDERED: TOTAL PARENTERAL NUTRITION 2,016 ML IV SCH (20:00)
[2021-02-18] MEDS: INSULIN GLARGINE 100 UNITS/ML SUB-Q SCH (22:59)
[2021-02-19] MEDS: hydrALAZINE 20 MG/1 ML INJ IV SCH ×6 (02:00→21:55)
[2021-02-19] MEDS: INSULIN LISPRO 100 UNIT/ML SUB-Q SCH ×4 (06:00→22:03)
[2021-02-19] MEDS: DIPHENOXYLATE/ATROPINE TAB PO SCH ×4 (06:23→18:06)
[2021-02-19] MEDS: METOPROLOL TARTRATE 25 MG TAB PO SCH ×3 (06:27→22:14)
--- NOTE | 2021-02-19 09:13 | Progress Note ---
Assessment and Plan Assessment and plan: Severe Sepsis with shock Streptococcus bovis bacteremia/Prevotella bacteremia Gwendolyn albicans tracheal aspirate Small bowel obstruction/necrotic bowel s/p ex lap with extensive lysis of adhesions, 2 small bowel resections with primary anastomosis, right hemicolectomy, jejunal colonic anastomosis, segmental small bowel resection Postoperative ileus Atrial fibrillation with RVR Leukocytosis Hypochloremia Gwendolyn albicans in tracheal aspirate from 12/24 ESRD on PD, PermCath to be placed Transaminitis Systolic CHF(EF 35%) Crohn's disease Hypertension Hypokalemia and hypophosphatemia -[facility], surgery, infectious disease, nephrology, vascular surgery, cardiology consulted, appreciate recommendations -12/24 S/p ex lap with extensive expectations, 2 small bowel resections with primary anastomosis with surgery on 12/23 -s/p PICC and Permacath placement with vascular surgery on 12/27 -Extubated on 12/28, reintubated 12/31 for respiratory distress and extubated 01/08 -12/29 echocardiogram shows moderate concentric LVH, small pericardial effusion, transmitral Doppler flow pattern is grade 1 abnormal relaxation pattern, left- ventricular systolic function normal, LVEF 50 to 55%, no wall motion abnormalities. -01/01 CT abdomen/pelvis shows small pericardial effusion, mild coronary artery atherosclerotic calcification, small bilateral pleural effusions with associated volume loss, no convincing evidence of bowel obstruction or inflammation, postoperative changes from interval/recent midline laparotomy with a moderate amount of free fluid throughout the abdomen, small amount of dependent free air presumably postoperative -01/02 s/p ex lap, resection of perforated anastamosis, washout and abthera wound vac placement. -01/04 s/p ex lap with right hemicolectomy. -01/06 s/p exploratory laparotomy, Jejunal colonic anastomosis, Segmental small bowel resection. -s/p Vasopressor support with Levophed and vasopressin -Transitioned to HD from PD -HD per nephro, Epogen with HD -Strict NPO -cont TPN, Octreotide drip -s/p NGT to LIWS, now placed on G-tube for decompression - s/p rectal tube -s/p IV antibiotics -Tobacco abuse cessation counseling -Trend CBC, BMP DVT/GI prophylaxis: PPI, heparin subcu, SCDs to bilateral lower extremities while in bed Brief Course: This is a 60 YO Male with ESRD on PD, GERD, Crohn's Disease, Nicotine Dependence, HTN, Systolic CHF(EF 35%) who presented to the emergency department on 12/22 with complaints of abdominal pain which began shortly after e ating fast food rated 10/10 which is periumbilical, constant, associated with fever, nausea and multiple sites of vomiting and self-reported inability to undergo PD. In the emergency room patient underwent a CT scan of the abdomen/pelvis which revealed evidence of partial small bowel obstruction, s ymptoms were consistent with bacterial peritonitis. Patient was admitted to the hospital service with sepsis, peritonitis, and small bowel obstruction with consults to general surgery, nephrology, infectious disease and [facility]. Daily clinical course: 12/23. Patient had temperature 101.2 F, tachycardia and elevated lactic acid on admission. Meet sepsis criteria. Started on IV antibiotics. ID has been consulted. Surgery consulted this a.m.-advised laparoscopy. He remains on NG tube connected to suction. 12/24. Patient was noted to have peritonitis yesterday and patient undergoing exploratory laparotomy. Patient remained intubated after procedure and is in ICU. Now on broad-spectrum antibiotics. ID on board. 12/25. Remains mechanically ventilated and sedated. Temp 103 Fahrenheit. Antibiotics broadened-ID added fluconazole and Flagyl. Blood cultures ordered. Plan to repeat CT abdomen tomorrow if not better. Surgery following. 12/26: Patient remains on mechanical ventilation on CMV tidal line 550, rate of 14, PEEP of 8 and 30% FiO2 and sedated on fentanyl 4 micrograms. Today we will remove his Jeffery and CCM dropped his rate controlled him on CPAP. We will trend CBC given recent drop in H/H. 12/27: Patient remains intubated on CMV tidal volume 550, rate 12, PEEP 8 on 30% FiO2 at the time my examination. Patient's TPN will be changed to PPN. Pat ient's fentanyl drip will be changed to IV push fentanyl and have a permacath placed today and midline. Patient was placed on a spontaneous breathing trial was switched back to CMV prior to procedure. 12/28: Patient on fentanyl but awake and follows commands. At the time of my examination he was on a CPAP trial and is scheduled to receive HD today. s/o permacath and PICC placement with vascular yesterday. His blood culture grew Prevotella and addition to Streptococcus bovis. This evening Dr. Spicer attempted to extubate the patient and his heart rate went to the 180s. Stat EKG obtained and cardiology consulted. 12/29: Patient was started on amiodarone IV for A. fib RVR yesterday and today he is more rate controlled into the 70s and 80s. Patient was extubated yesterday and is currently on Ventimask. Patient will be transferred to [facility]. Patient continues to be n.p.o. with TPN and NG tube to [facility]. He is hypokalemic today which was repleted. 12/30; patient was on IV amiodarone for treatment with RVR, rate is controlled. Patient was off oxygen. patient is n.p.o. and on TPN. Surgery is following the patient. 12/31: Patient was intubated overnight for respiratory distress and this morning on examination he was on assist control tidal volume 450, rate 20, PEEP 6, 100% FiO2 and RT was getting a ABG to adjust vent settings. Patient had a acute bump in WBC and per ID recommendations we will obtain a CT abdomen/pelvis if leukocytosis persist. Patient is on TPN and sedated with Levophed. Patient is also on vasopressor support with Levophed. Per surgery his ileus is resolving however will maintain OGT to LIWS. 01/01: Patient was started on a vasopressin yesterday late evening. This morning patient is on 20 mcg of Levophed and 0.03 vasopressin and sedated on 20 mcg of propofol. Patient WBC increased today and he is hypokalemic. We will treat hyperkalemia. Patient had a CT chest and abdomen/pelvis pending. The time examination total of 450, rate 20, PEEP of 6 and 35 percent FiO2. Per RN, Dr Pollock has stated that the patient will be returning to the OR today for likely anastomosis seen on CT abdomen/pelvis. 01/02: Patient noted, WBC improving, but noted to have anemia, will transfuse additional unit of Blood and repeat H/H. continue supportive care. 01/03: Continue to wean pressors, ABX PER ID, patient to return to OR today for washout and possible closure, CONTINUE TPN 5/12: Continues to show some improvement. Today is POD#12 s/p ex lap with extensive lysis of adhesions and two small bowel resections with primary anastamosis for SBO with necrotic segment small bowel. POD#3 s/p ex lap, resection of perforated anastamosis, washout and abthera wound vac placement. POD#1 s/p ex lap with right hemicolectomy. Surgery planning to take back to the OR on Saturday with the hope to anastamos ileum to transverse colon and close abdomen. keep NGT to suction. Pt in deep sedation due to open abdomen. Per ID - Continue IV Zosyn, renally dosed for Strep bacteremia treatment till 01/06/2021 -On TPN 01/05: Patient continues on HD, anticipate return to OR tomorrow for closure and anastemosis. Continues with deep sedation due to open abdomen 01/06: Continue supportive care, monitor pressures and electrolytes. He is post op Exploratory laparotomy, 2. Jejunal colonic anastomosis,3. Segmental small bowel resection and anastemosis closure today. Continue wound vac 01/07: Continue supportive care, Today is POD#15 s/p ex lap with extensive lysis of adhesions and two small bowel resections with primary anastamosis for SBO with necrotic segment small bowel. POD#6 s/p ex lap, resection of perforated anastamosis, washout and abthera wound vac placement. POD#4 s/p ex lap with right hemicolectomy. POD #1 exploratory laparotomy, 2. Jejunal colonic anastomosis,3. Segmental small bowel resection. Continue to monitor and corre ct electrolytes. Patient remains on fentanyl and TPN with lipids. Still hypoactive bowel sounds. 16: Patient now extubated, asked when he can go home, Still lethargic. Continue wound management, wound vac, Will need Rehab eval prior to discharge. 01/09: Patient remains on TPN, was started on labetalol drip per cardiology, patient had uncontrolled hypertension today however he cannot be given p.o. medications ileus resolves per surgery. Patient received hemodialysis today. NG tube remains to low intermittent suction. 01/10: Patient has some leukocytosis, slight hypokalemia and hyponatremia, metabolic acidosis. NG tube to LIWS, continue TPN. Patient will be downgraded to IMCU today. [facility] is working on placement. Will change frequency of hydralazine and discontinue labetalol drip. We will obtain a.m. BMP/mag/Phos and CBC. Infectious disease will like to start Zosyn if leukocytosis continues to worsen. 01/11: Patient leukocytosis has slightly improved potassium with in normal limits and other electrolytes are elevated but patient is scheduled for HD today. Remains on RA and A,A,Ox4. BP better controlled but remains elevated and we will increase clonidine dose. 01/12/2021; patient's blood pressure is better after dialysis and as needed IV medications and clonidine patch. Patient is followed by general surgery. Patient was alert and oriented and asked when he is going home. 01/13: Surgery is concerned about a leak at his anastamosis given increased output and will treat as controlled fistula and start an octreotide drip. And per surgery if he requires operative intervention will likely need to be left in discontinuity and eventual ileostomy as he has already failed two anastamoses. Patient still has tongue swelling and slurred speech. He is on Benadryl. 01/14: Patient's tongue swelling is improved, patient is alert and oriented, CAM ICU negative. Continue NG tube to low wall intermittent suction. Leukocytosis is improving. Hypomagnesemia resolved. Epogen with HD 01/15: Patient tongue swelling is much improved, bladder scan completed by bedside RN and he needed to be straight cathed. NGT output decreased. Leukocytosis improving. Patient has been having episodes of hypoglycemia during the day and he is on cyclic TPN, Lantus rescheduled to nightly and dosage decreased. 01/16: Continue management per ID and surgery. Will defer repeat CT of the a bdomen to the team surgery has been approved by nephrology. Continue current diet and advance all to ice if okay with surgery discussed with nursing staff. 01/17: Discussed surgical recommendation of strict n.p.o. except for small amount of ice as patient has already failed to anastomosis. And risk for additional surgery with tissues were extremely friable from previous scar. He continues on octreotide drip to slow down GI output HARIS drain remains in place with NG suction for decompression. Patient verbalized understanding although stressed about being discharged. We will continue IMCU care unless otherwise advised by surgery. Prognosis remains guarded continue to monitor electrolytes considering GI output. 01/18: Continue supportive care, BP mildly elevated, continue to monitor, cont inue current therapy, if no return to PO soon may consider Increasing clonidine to 0.3, PO when ok with surgery. 01/19:Continue supportive care, Per ID continue IV Zosyn, plan to stop at 3 weeks from last surgery end date: 01/24/2021. Other management per surgery. Continue TPN. 01/20: Discussed with Surgery, will continue current management. Advised patient of the findings and plan. 01/21: Continue supportive care. Continue management per surgery advance diet when okay with surgery. Plan of care discussed with the patient in detail. 01/22: NG tube to be replaced explained to the patient why this is important. I agree with PT OT discussed with nursing staff very important to let the PT team know that they should manage HARIS drain while patient is ambulating so that he d oes not come out. Continue current management. Change in ocreotide to q8h and d/c drip NOTED 01/23: Continue supportive care, HD today, counselling provided to the patient on compliance with medical management 01/24: Replace NGT, Continue management per Surgery. POD 32. Mild hypokalemia noted, will replace. 01/25: Brief summary patient is a 60-year-old male admitted with abdominal pain and noted to have necrotic bowel concerning for PD associated peritonitis. Catheter was placed to convert to HD. Patient also underwent multiple surgical interventions. Initial cultures showed Streptococcus bovis bacteremia and Prevotella bacteremia a COLIN was without vegetations repeat blood cultures have been negative. Part of the surgery is included ex lap, resection of perforated anastomosis, washout and a better wound VAC placement on 01/01. While progress has remained slow if has indeed shown some improvement. Patient is agitated about being in the hospital but understands the care management been provided his vital to his health and to prevent further surgeries. The NG tube has been pulled out 2 days ago he vehemently refused the tube being placed back but after a day of nausea with associated vomiting he was accepting of the chest tube to put back. He continues on TPN. We will continue to monitor electrolytes and correct as needed. This a.m. and erroneous blood was obtained likely from the same line as TPN repeat was done which showed normalizing factors. Patient completed antibiotics on 01/25/2020 . 01/26 Patient with severe sepsis with septic shock, small bowel obstruction, necrotic bowel s/p multiple surgeries. He complains of abdominal pain. No fever currently. He asked me when is he going home and i explained that he is not yet stable for discharge 01/27 Patient with severe sepsis with septic shock, small bowel obstruction, necrotic bowel s/p multiple surgeries. He complains of abdominal pain. No fever currently. Paroxysmal atrial fib managed by cardiology 01/28 Patient with severe sepsis with septic shock, small bowel obstruction, necrotic bowel s/p multiple surgeries. No fever currently. No abd pain currently. I discussed with Surgeon, Dr. Pollock. Continue current management. He also has paroxysmal afib, managed by Cardiology. 01/29 Patient with severe sepsis with septic shock, small bowel obstruction, necrotic bowel s/p multiple surgeries. No fever currently. No abd pain currently. I discussed with Surgeon, Dr. Pollock, yesterday. Continue current management. He also has paroxysmal afib, managed by Cardiology. He is on Metoprolol, Digoxin, Clonidine 01/30 Patient with severe sepsis with septic shock, small bowel obstruction, nec rotic bowel s/p multiple surgeries. Patient is a 60-year-old male admitted with abdominal pain and noted to have necrotic bowel concerning for PD associated peritonitis. Catheter was placed to convert to HD. Patient also underwent multiple surgical interventions. Initial cultures showed Strepto coccus bovis bacteremia and Prevotella bacteremia a COLIN was without vegetations repeat blood cultures have been negative. Part of the surgery is included ex lap, resection of perforated anastomosis, washout and a better wound VAC placement on 01/01. While progress has remained slow if has indeed shown some improvement. Patient is agitated about being in the hospital but understands the care management been provided his vital to his health and to prevent further surgeries. He continues on TPN. No fever currently. Less abdominal pain. Discussed with Surgeon, Dr. Pollock, few days ago. Continue current management. He also has paroxysmal afib, managed by Cardiology. He is on Metoprolol, Dig oxin, Clonidine. ESRD on dialysis managed by Nephrology. 01/31: Continue HARIS drain suction. Ongoing treatment for anastomotic leak/controlled low output fistula. Maintain LIWS to NGT and monitor output. continue q 8h ocreotide. cont TPN. Defer to general surgery for NG tube discontinuation. 02/01: planned for g-tube placement for gastric decompression. Removed NG tube today. S/p HD -tolerated well : Status post G-tube placement today, resume TPN, patient is off from rectal tube. Continue supportive care and follow general surgery recommendation for discharge planning. Hemodialysis per schedule 02/03 -02/05: cont TPN, G-tube suction, Continue supportive care and follow general surgery recommendation for discharge planning. Hemodialysis per schedule. 02/06: Per surgery Anastamotic leak slowing down and is a controlled fistula. Continue HARIS drain suction. Since HARIS drain has continued to stay about 10ml over the last several days, plan to continue lower dose of octreotide. continue g-tube to drainage for decompression. continue clear liquids and closely monitor HARIS drain output. patient need LTAC placement. Continue to replace electrolytes and monitor phosphate level 02/07/2021; Per surgery Anastamotic leak slowing down and is a controlled fistula. Continue HARIS drain suction. Since HARIS drain has continued to stay about 10ml over the last several days, plan to continue lower dose of octreotide. continue g-tube to drainage for decompression. continue clear liquids and closely monitor HARIS drain output. patient need LTAC placement. Continue to replace electrolytes and monitor phosphate level. 02/08/2021; patient need to be transferred to LTAC. Patient expressed he wants to go home. 02/09/2021; pending LTAC placement 02/10/2021; pending LTAC placement 02/11/2021;case management continues to find a place to take him. General surgery is considering to discharge him home with home health, home TPN. 02/12/2021; patient expressed to go home. Put a consult for case management to arrange home health and home TPN. 02/13/2021; patient does not want to go to rehab or LTAC. I have discussed with case management about the option of getting home health and home PPN. Case management is working on it. 02/14: Patient now with fever Tmax 101.7, has been low grade prior, will recheck per my discussion with nursing staff. Will check CBC, Procalcitonin, blood clutures, chest xray. Patient is a dialysis patient and has PICC line. From my understanding not returning blood. Will need to check integrity of the line. Nurse to call PICC team. Will like to monitor 24 hrs prior to planned discharge. Understand patient is still on TPN. 02/15: Recurrent spesis, in patient with mulitiple line and TPN, input from ID - f/u blood cultures. PER ID - continue empiric renally dosed Cefepime + Vancomycin + Flagyl + Micafungin (has indwelling lines and has been on TPN) - if no source is identified, may need abdominal imaging with CT with contrast coordinated with dialysis No new FEVER TODAY Continue supportive care. 02/16: Patient seen and examined, 4/4 Bottles positive GPC, ID input noted. Discussed with sales representative livestock, vascular and the patient, all central lines will be removed following HD today. Continue antibiotics. 02/17/21 patient seen and examined. No new complain. Blood culture is positive for GPC. Repeat blood cultures ordered. Continue IV vancomycin. Continue current management. HD as per nephrology. Infectious disease follow-up. Recheck CBC BMP in the morning. 02/18/21 patient seen and examined. Patient feels better. No new complain. WBC 6.7. Hemoglobin 7.4. Blood culture from 02/14/2021 showed staph epidermidis. Most likely contamination we will follow the repeat blood culture. Continue IV vancomycin. Possible permacath placement on 02/20/2021 for hemodialysis. Infectious disease follow-up. Continue TPN. Recheck CBC BMP in the morning. 02/19: Patient changed to PPN till line re-established for TPN. Continue current management, discussed with nursing staff at bedside History Interval history: This is a 60-year-old male with ESRD on peritoneal dialysis, Crohn's, hypertension, systolic CHF (EF 35%) who was admitted with sepsis, peritonitis, small bowel obstruction and now has gram-positive cocci bacteremia. Patient clinically stable, No new complaints. Wants to be discharged Hospitalist Physical - Physical exam Narrative exam: Patient was not in cardiopulmonary distress The patient appeared well nourished and normally developed. Vital signs as documented. Head exam is unremarkable. No scleral icterus . Neck is without jugular venous distension, thyromegaly, or carotid bruits. Lungs are clear to auscultation. Cardiac exam reveals regular rate and Rhythm. Abdominal exam reveals clean midline surgical laparatomy wound. HARIS tube in place Extremities are nonedematous and both femoral and pedal pulses are normal. 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 No focal weakness. - Constitutional Vitals: Temp Pulse Resp BP Pulse Ox 98.4 F 84 16 167/83 97 02/19/21 07:26 02/19/21 07:02/19/21 07:26 02/19/21 07:02/19/21 07:26 General appearance: Present: no acute distress HEART Score - HEART Score Troponin: Troponin T 0.021 ng/mL (0.00-0.029) 12/22/20 14:38 Results - Labs CBC & Chem 7: 02/18/21 07:39 02/18/21 07:39 Labs: Laboratory Last Values WBC 6.7 K/mm3 (4.5-11.0) 02/18/21 07:39 RBC 2.38 M/mm3 (3.65-5.03) L 02/18/21 07:39 Hgb 7.4 gm/dl (11.8-15.2) L 02/18/21 07:39 Hct 21.7 % (35.5-45.6) L 02/18/21 07:39 MCV 91 fl (84-94) 02/18/21 07:39 MCH 31 pg (28-32) 02/18/21 07:39 MCHC 34 % (32-34) 02/18/21 07:39 RDW 16.9 % (13.2-15.2) H 02/18/21 07:39 Plt Count 183 K/mm3 (140-440) 02/18/21 07:39 Lymph % (Auto) 9.8 % (13.4-35.0) L 02/18/21 07:39 Wood % (Auto) 12.2 % (0.0-7.3) H 02/18/21 07:39 Eos % (Auto) 3.4 % (0.0-4.3) 02/18/21 07:39 Baso % (Auto) 0.3 % (0.0-1.8) 02/18/21 07:39 Lymph # (Auto) 0.7 K/mm3 (1.2-5.4) L 02/18/21 07:39 Wood # (Auto) 0.8 K/mm3 (0.0-0.8) 02/18/21 07:39 Eos # (Auto) 0.2 K/mm3 (0.0-0.4) 02/18/21 07:39 Baso # (Auto) 0.0 K/mm3 (0.0-0.1) 02/18/21 07:39 Add Manual Diff Complete 02/14/21 09:24 Total Counted 100 02/14/21 09:24 Seg Neutrophils % 74.3 % (40.0-70.0) H 02/18/21 07:39 Seg Neuts % (Manual) 91.0 % (40.0-70.0) H 02/14/21 09:24 Band Neutrophils % 1.0 % 02/14/21 09:24 Lymphocytes % (Manual) 6.0 % (13.4-35.0) L 02/14/21 09:24 Reactive Lymphs % (Man) 1.0 % 12/29/20 05:16 Monocytes % (Manual) 2.0 % (0.0-7.3) 02/14/21 09:24 Eosinophils % (Manual) 2.0 % (0.0-4.3) 12/29/20 05:16 Metamyelocytes % 2.0 % 12/29/20 05:16 Nucleated RBC % Not Reportable 02/14/21 09:24 Seg Neutrophils # 4.9 K/mm3 (1.8-7.7) 02/18/21 07:39 Seg Neutrophils # Man 16.6 K/mm3 (1.8-7.7) H 02/14/21 09:24 Band Neutrophils # 0.2 K/mm3 02/14/21 09:24 Lymphocytes # (Manual) 1.1 K/mm3 (1.2-5.4) L 02/14/21 09:24 Abs React Lymphs (Man) 0.0 K/mm3 02/14/21 09:24 Monocytes # (Manual) 0.4 K/mm3 (0.0-0.8) 02/14/21 09:24 Eosinophils # (Manual) 0.0 K/mm3 (0.0-0.4) 02/14/21 09:24 Basophils # (Manual) 0.0 K/mm3 (0.0-0.1) 02/14/21 09:24 Metamyelocytes # 0.0 K/mm3 02/14/21 09:24 Myelocytes # 0.0 K/mm3 02/14/21 09:24 Promyelocytes # 0.0 K/mm3 02/14/21 09:24 Blast Cells # 0.0 K/mm3 02/14/21 09:24 WBC Morphology Not Reportable 02/14/21 09:24 Hypersegmented Neuts Not Reportable 02/14/21 09:24 Hyposegmented Neuts Not Reportable 02/14/21 09:24 Hypogranular Neuts Not Reportable 02/14/21 09:24 Smudge Cells Not Reportable 02/14/21 09:24 Toxic Granulation Not Reportable 02/14/21 09:24 Toxic Vacuolation Not Reportable 02/14/21 09:24 Dohle Bodies Not Reportable 02/14/21 09:24 Pelger-Huet Anomaly Not Reportable 02/14/21 09:24 Lamar Rods Not Reportable 02/14/21 09:24 Platelet Estimate Consistent w auto 02/14/21 09:24 Clumped Platelets Not Reportable 02/14/21 09:24 Plt Clumps, EDTA Not Reportable 02/14/21 09:24 Large Platelets Rare 02/14/21 09:24 Giant Platelets Not Reportable 02/14/21 09:24 Platelet Satelliting Not Reportable 02/14/21 09:24 Plt Morphology Comment Not Reportable 02/14/21 09:24 RBC Morphology Not Reportable 02/14/21 09:24 Dimorphic RBCs Not Reportable 02/14/21 09:24 Polychromasia Few 02/14/21 09:24 Hypochromasia Not Reportable 02/14/21 09:24 Poikilocytosis Not Reportable 02/14/21 09:24 Anisocytosis 1+ 02/14/21 09:24 Microcytosis Not Reportable 02/14/21 09:24 Macrocytosis Not Reportable 02/14/21 09:24 Spherocytes Not Reportable 02/14/21 09:24 Pappenheimer Bodies Not Reportable 02/14/21 09:24 Sickle Cells Not Reportable 02/14/21 09:24 Target Cells Not Reportable 02/14/21 09:24 Tear Drop Cells Few 02/14/21 09:24 Ovalocytes Not Reportable 02/14/21 09:24 Helmet Cells Not Reportable 02/14/21 09:24 [place] Bodies Not Reportable 02/14/21 09:24 [place] Rings Not Reportable 02/14/21 09:24 Jenny Cells Not Reportable 02/14/21 09:24 Bite Cells Not Reportable 02/14/21 09:24 Crenated Cell Not Reportable 02/14/21 09:24 Elliptocytes Not Reportable 02/14/21 09:24 Acanthocytes (Spur) Not Reportable 02/14/21 09:24 Rouleaux Not Reportable 02/14/21 09:24 Hemoglobin C Crystals Not Reportable 02/14/21 09:24 Schistocytes Not Reportable 02/14/21 09:24 Malaria parasites Not Reportable 02/14/21 09:24 Lucas Bodies Not Reportable 02/14/21 09:24 Hem Pathologist Commnt No 02/14/21 09:24 PT 16.9 Sec. (12.2-14.9) H 01/01/21 12:45 INR 1.39 (0.87-1.13) H 01/01/21 12:45 APTT 25.1 Sec. (24.2-36.6) 12/22/20 14:38 ABG pH 7.345 pH Units (7.350-7.450) L 01/07/21 17:14 POC ABG pCO2 41.4 mmHg (32.0-48.0) 01/07/21 03:07 ABG pCO2 40.3 mm Hg 01/07/21 17:14 POC ABG pO2 94.5 mmHg (83-108) 01/07/21 03:07 ABG pO2 67.4 mm Hg (80.0-90.0) L 01/07/21 17:14 POC ABG HCO3 22.7 01/07/21 03:07 ABG HCO3 21.5 mmol/L (20.0-26.0) 01/07/21 17:14 ABG O2 Saturation 94.3 % (95.0-99.0) L 01/07/21 17:14 ABG O2 Content 11.6 (0.0-44) 01/07/21 17:14 POC ABG Base Excess -2.7 01/07/21 03:07 ABG Base Excess -3.9 mmol/L (-2.0-3.0) L 01/07/21 17:14 ABG Hemoglobin 8.9 gm/dl (14.0-18.0) L 01/07/21 17:14 ABG Oxyhemoglobin 96.6 (94-98) 01/07/21 03:07 ABG Carboxyhemoglobin 1.5 % (0.0-5.0) 01/07/21 17:14 ABG Methemoglobin 0.6 % (0.0-1.5) 01/07/21 17:14 ABG Sodium 135.6 mmol/L (136.0-145.0) L 01/07/21 03:07 ABG Potassium 4.0 mmol/L (3.40-4.50) 01/07/21 03:07 ABG Chloride 102.0 mmol/L (98-107) 01/07/21 03:07 ABG Glucose 181 mg/dL (65-95) H 01/07/21 03:07 Oxyhemoglobin 92.3 % (95.0-99.0) L 01/07/21 17:14 Carboxyhemoglobin 0.7 (0.5-1.5) 01/07/21 03:07 FiO2 21 % 01/07/21 17:14 FiO2 % 45.0 01/07/21 03:07 Sodium 130 mmol/L (137-145) L 02/18/21 07:39 Potassium 3.6 mmol/L (3.6-5.0) 02/18/21 07:39 Chloride 94.0 mmol/L (98-107) L 02/18/21 07:39 Carbon Dioxide 23 mmol/L (22-30) 02/18/21 07:39 Anion Gap 17 mmol/L 02/18/21 07:39 BUN 30 mg/dL (9-20) H 02/18/21 07:39 Creatinine 7.8 mg/dL (0.8-1.3) H 02/18/21 07:39 Estimated GFR 9 ml/min 02/18/21 07:39 BUN/Creatinine Ratio 4 % 02/18/21 07:39 Glucose 103 mg/dL (75-100) H 02/18/21 07:39 POC Glucose 106 mg/dL (70-105) H 02/19/21 06:38 Lactic Acid 1.70 mmol/L (0.7-2.0) 02/14/21 09:24 Calcium 8.5 mg/dL (8.4-10.2) 02/18/21 07:39 Phosphorus 2.40 mg/dL (2.5-4.5) L 02/18/21 07:39 Magnesium 1.40 mg/dL (1.7-2.3) L 02/18/21 07:39 Iron 39 ug/dL (49-181) L 02/16/21 15:23 TIBC 154 mcg/dL (250-450) L 02/16/21 15:23 % Saturation 25.32 % 02/16/21 15:23 Transferrin 134 mg/dl (180-329) L 02/16/21 15:23 Ferritin 4086.0 ng/mL (30.0-300.0) H 02/16/21 15:23 Total Bilirubin 0.50 mg/dL (0.1-1.2) 02/13/21 06:05 AST 14 units/L (5-40) 02/13/21 06:05 ALT 20 units/L (7-56) 02/13/21 06:05 Alkaline Phosphatase 149 units/L (35-129) H 02/13/21 06:05 Ammonia 30.0 umol/L (25-60) 12/22/20 14:38 Troponin T 0.021 ng/mL (0.00-0.029) 12/22/20 14:38 Total Protein 5.9 g/dL (6.3-8.2) L 02/13/21 06:05 Albumin 3.2 g/dL (3.9-5) L 02/13/21 06:05 Albumin/Globulin Ratio 1.2 % 02/13/21 06:05 Triglycerides 72 mg/dL (2-149) 01/30/21 04:15 Lipase 41 units/L (13-60) 12/22/20 14:38 Procalcitonin 27.86 ng/mL (<0.15) 02/14/21 09:24 TSH 1.470 mlU/mL (0.270-4.200) 12/28/20 19:44 Arterial Blood Glucose 181 mg/dL (65-95) H 01/07/21 03:07 Arterial Blood Ionized Calcium 4.3 mg/dL (4.6-5.3) L 01/07/21 03:07 Urine Color Yellow (Yellow) 12/22/20 18:53 Urine Turbidity Clear (Clear) 12/22/20 18:53 Urine pH 7.0 (5.0-7.0) 12/22/20 18:53 Ur Specific [place] 1.012 (1.003-1.030) 12/22/20 18:53 Urine Protein >500 mg/dL (Negative) 12/22/20 18:53 Urine Glucose (UA) Neg mg/dL (Negative) 12/22/20 18:53 Urine Ketones Neg mg/dL (Negative) 12/22/20 18:53 Urine Blood Neg (Negative) 12/22/20 18:53 Urine Nitrite Neg (Negative) 12/22/20 18:53 Urine Bilirubin Neg (Negative) 12/22/20 18:53 Urine Urobilinogen < 2.0 mg/dL (<2.0) 12/22/20 18:53 Ur Leukocyte Esterase Neg (Negative) 12/22/20 18:53 Urine WBC (Auto) < 1.0 /HPF (0.0-6.0) 12/22/20 18:53 Urine RBC (Auto) 1.0 /HPF (0.0-6.0) 12/22/20 18:53 Fluid Type Dialysate 12/22/20 Unknown Fluid Color Colorless 12/22/20 Unknown Fluid Appearance Cloudy 12/22/20 Unknown Fluid WBC 208 /mm3 12/22/20 Unknown Fluid RBC 45 /mm3 12/22/20 Unknown Fluid Seg Neutrophils 82.0 % 12/22/20 Unknown Fluid Lymphocytes 11.0 % 12/22/20 Unknown Fluid Reactive Lymphs 0 % 12/22/20 Unknown Fluid Monocytes 7.0 % 12/22/20 Unknown Fluid Eosinophils 0 % 12/22/20 Unknown Fluid Basophils 0 % 12/22/20 Unknown Random Vancomycin 11.1 ug/mL (0-40.0) 02/16/21 05:24 Digoxin 0.9 ng/mL (0.9-2.0) 02/04/21 05:40 Coronavirus (PCR) Negative (Negative) 02/13/21 Unknown Hepatitis A IgM Ab Non-reactive (NonReactive) 02/02/21 12:41 Hep Bs Antigen Non-reactive (Negative) 02/02/21 12:41 Hep B Core IgM Ab Non-reactive (NonReactive) 02/02/21 12:41 Hepatitis C Antibody Non-reactive (NonReactive) 02/02/21 12:41 Blood Type A POSITIVE 01/06/21 07:10 Antibody Screen Negative 01/06/21 07:10 Crossmatch See Detail 01/06/21 07:10 Microbiology: Microbiology 02/16/21 15:43 Peripheral/Venous Blood Culture - Preliminary NO GROWTH AFTER 48 HOURS 02/16/21 15:23 Peripheral/Venous Blood Culture - Preliminary NO GROWTH AFTER 48 HOURS 02/14/21 14:45 Peripheral/Venous Blood Culture - Final Staphylococcus Epidermidis 02/14/21 14:45 Peripheral/Venous Blood Culture - Final Staphylococcus Epidermidis Jeffery/IV: Voiding Method Bedside Commode Active Medications - Current Medications Current Medications: Generic Name Dose Route Start Last Admin Trade Name Freq PRN Reason Stop Dose Admin Acetaminophen 650 mg 02/14/21 09:00 02/14/21 16:34 Acetaminophen 325 Mg Tab PO 650 mg Q6H PRN Administration Pain, Mild (1-3) Clonidine HCl 0.2 mg 01/11/21 10:00 02/15/21 11:36 Clonidine Tts 0.2 Mg/24 Hr Patch TD Not Given We THOMAS Dextrose 50 ml 01/14/21 17:59 01/18/21 15:10 Dextrose 50% In Water (25gm) 50 Ml Syringe IV 20 ml Q30MIN PRN Administration Hypoglycemia Protocol Diphenhydramine HCl 50 mg 01/20/21 10:10 02/01/21 14:15 Diphenhydramine 50 Mg/Ml Vial IV 50 mg Q6H PRN Administration Itching Diphenoxylate HCl/Atropine 1 tab 02/06/21 18:00 02/19/21 06:23 Diphenoxylate/Atropine Tab PO Not Given Q6H THOMAS Famotidine 10 mg 12/24/20 13:00 02/18/21 22:00 Famotidine 20 Mg/2 Ml Inj IV 10 mg BID THOMAS Administration Fluticasone Propionate 50 mcg 02/07/21 10:00 02/18/21 09:19 Fluticasone Propionate Nasal [place] 16 Gm NS 50 mcg QDAY THOMAS Administration Haloperidol Lactate 5 mg 12/29/20 14:16 01/22/21 23:56 Haloperidol Lactate 5 Mg/1 Ml Inj IV 5 mg Q12H PRN Administration Agitation Heparin Sodium (Porcine) 5,000 unit 12/24/20 10:00 02/18/21 22:00 Heparin 5,000 Unit/1 Ml Vial SUB-Q 5,000 unit Q12HR THOMAS Administration Hydralazine HCl 10 mg 01/10/21 14:00 02/19/21 06:26 Hydralazine 20 Mg/1 Ml Inj IV 10 mg Q4HR THOMAS Administration Hydrocortisone Acetate 1 applic 02/01/21 18:43 Hydrocortisone 1% Cream 28.4gm TP Q8H PRN Skin Irritation Hydromorphone HCl 0.25 mg 01/09/21 10:53 02/15/21 22:47 Hydromorphone 1 Mg/1 Ml Inj IV 0.25 mg Q6H PRN Administration Pain , Severe (7-10) Sodium Chloride 100 mls @ 999 mls/hr 02/16/21 10:00 Nacl 0.9% IV [place] PRN Hypotension Amino Acids/Electrolytes/Dextrose 2,016 mls @ 84 mls/hr 02/18/21 20:00 02/18/21 20:00 Tpn Adult IV 02/19/21 19:59 84 mls/hr DAILY@2000 [facility] Administration Protocol Insulin Glargine 5 units 01/18/21 22:00 02/18/21 22:59 Insulin Glargine 100 Units/Ml SUB-Q 5 units QHS [facility] Administration Insulin Human Lispro 0 unit 01/03/21 12:00 02/19/21 06:00 Insulin Lispro 100 Unit/Ml SUB-Q Not Given Q6HR [facility] Protocol Metoprolol Tartrate 25 mg 02/14/21 14:00 02/19/21 06:27 Metoprolol Tartrate 25 Mg Tab PO 25 mg Q8HR THOMAS Administration Morphine Sulfate 2 mg 02/02/21 12:00 02/03/21 13:31 Morphine 2 Mg/1 Ml Inj IV 2 mg Q3H PRN Administration Pain, Moderate (4-6) Ondansetron HCl 4 mg 01/25/21 11:56 02/16/21 07:06 Ondansetron 4 Mg/2 Ml Inj IV 4 mg Q4H PRN Administration Nausea And Vomiting Scopolamine 1 each 01/15/21 11:00 02/17/21 12:11 Scopolamine Transdermal Patch 72 Hr TD 1 each Q3D THOMAS Administration Sodium Chloride 10 ml 12/22/20 22:00 02/18/21 22:00 Sodium Chloride 0.9% 10 Ml Flush Syringe IV 10 ml BID THOMAS Administration Sodium Chloride 10 ml 12/22/20 19:42 01/29/21 02:08 Sodium Chloride 0.9% 10 Ml Flush Syringe IV 10 ml PRN PRN Administration LINE FLUSH Nutrition/Malnutrition Assess - Dietary Evaluation Nutrition/Malnutrition Findings: Nutrition Notes Start: 12/24/20 12:36 Freq: Status: Active Protocol: Document 02/18/21 09:33 CW (Rec: 02/18/21 10:11 CW [id number]) Nutrition Notes Initial or Follow up Reassessment Current Diagnosis CKD (stage V CKD),Sepsis, Hypertension,Heart Failure, Small Bowel Obstruction Other Pertinent Diagnosis onHD, s/p exp lap, s/p bowel resections, afib Current Diet CPN at 84 ml/hr+ Clear Liquids Labs/Tests Na 130 Cl 94 BUN 30 Cr 7.8 Phos 2.4 Mg1.4 Pertinent Medications reviewed Height 5 ft 7 in Weight 86 kg [place] Body Weight (kg) 67.27 BMI 29.7 Weight Status Overweight Subjective/Other Information Day [address] noted that pt has not recieved TPN x at least 36 hours. RN states it is d/t access change. RDs unaware of access change. Will switch to PPN at this time. Per RN it is possible central will be replaced saturday. Percent of energy/protein needs met: 0%/0% Burn Absent Trauma Absent GI Symptoms Diarrhea Current % PO Negligible Minimum of two criteria Yes Reduced Assisted Living Housekeeper Strength Measurably Reduced (severe) #2 Nutrition Diagnosis Increased nutrient needs ( specify in comment below) Diagnosis Progress(for reassessment Continues documentation) #1 Nutrition Diagnosis Inadequate oral intake Diagnosis Progress(for reassessment Continues documentation) Is patient on ventilator? No Is Patient Ambulatory and/or Out of Bed Yes REE-([facility]-ambulatory/OOB) [ 2104.219 [id number]] Calculation Used for Recommendations [facility] Additional Notes Pro needs 1.2-1.3g/k- 109g/day Fluid needs per MD. Nutrition Intervention Change Diet Order: Chnge PPN Nutrition Support: Change to PPN at 84 ml/hr/ MVI ; Osm 899 mosm; 7.4%D 2.9% AA; Na 160 mEq PHOS 30 mmol Kcal 742 Protein (gm) 58 Carbohydrates (gm) 150 Fat (gm) 0 Fluid (mL) 2,016 Fiber (gm) 0 Goal #1 Meet at least 75% of estimated energy and protein needs via PPN as best as possible Follow-Up By: 02/19/21 Additional Comments F/U for labs in AM; KAREN Estrella. Line access
[2021-02-19] MEDS: FAMOTIDINE 20 MG/2 ML INJ IV SCH ×2 (09:27→21:56)
[2021-02-19] MEDS: HEPARIN 5,000 UNIT/1 ML VIAL SUB-Q SCH ×2 (09:29→21:55)
[2021-02-19 10:37] LABS: Calcium 8.7 mg/dL (8.4-10.2)
[2021-02-19] MEDS: FLUTICASONE PROPIONATE NASAL SPRAY 16 GM NS SCH (12:58)
--- NOTE | 2021-02-19 14:38 | Progress Note ---
Assessment and Plan POD#54 s/p ex lap with extensive lysis of adhesions and two small bowel resections with primary anastamosis for SBO with necrotic segment small bowel. POD#45 s/p ex lap, resection of perforated anastamosis, washout and abthera wound vac placement. POD#43 s/p ex lap with right hemicolectomy. POD#41 s/p ex lap, with jejunal-colonic anastamosis and closure of abdomen. 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 Plan: 1. CLD -> do not advance 2. Continue HARIS drain suction. HARIS drain must be secured and kept in place. 3. Patient will need to be on TPN for the foreseeable future due to inability to use his GI tract to the point of getting adequate nutrition from oral diet at this time. TPN off for due to lack of adequate IV access. Changed to PPN per nutrition notes for the time being until central IV access obtained. 4. continue g-tube to drainage for decompression. 5. blood cultures +, continue abx per ID. 6. Pt on Lomotil. Will add imodium 7. Pt tentatively scheduled for catheter replacement on Saturday. 8. DC planning - CM on board and working on dispo Thank you, please call with questions. Subjective Date of service: 02/19/21 Narrative: Pt seen and examined. No acute complaints. States he is having frequent loose BMs. No n/v. Pk CLD. NO abd pain. Objective Vital Signs - 12hr 02/19/21 02/19/21 02/19/21 04:00 06:26 06:27 Temperature 98.3 F Pulse Rate 72 72 72 Respiratory 18 Rate Blood Pressure 158/74 158/74 Blood Pressure 158/76 [Right] O2 Sat by Pulse 96 Oximetry 02/19/21 02/19/21 02/19/21 07:26 09:28 11:54 Temperature 98.4 F 98.4 F Pulse Rate 84 84 76 Respiratory 16 16 Rate Blood Pressure 167/83 167/83 155/73 Blood Pressure [Right] O2 Sat by Pulse 97 97 Oximetry - General physical appearance Narrative Exam: Gen: AAOx3. NAD CV: s1, S2+ Resp: even and unlabored Abd: soft, NT, ND. G tube with no drainage in bag (5cc/24h), L sided HARIS in place, purulent - new dressing applied and secured (10cc/24h) - Labs 02/18/21 07:39 02/19/21 09:14 Diabetes panel 02/19/21 Range/Units 09:14 Sodium 129 L (137-145) mmol/L Potassium 3.5 L (3.6-5.0) mmol/L Chloride 92.1 L (98-107) mmol/L Carbon Dioxide 25 (22-30) mmol/L BUN 35 H (9-20) mg/dL Creatinine 10.2 H (0.8-1.3) mg/dL Glucose 103 H (75-100) mg/dL Calcium 8.7 (8.4-10.2) mg/dL Calcium panel 02/19/21 Range/Units 09:14 Calcium 8.7 (8.4-10.2) mg/dL Phosphorus 3.40 D (2.5-4.5) mg/dL Pituitary panel 02/19/21 Range/Units 09:14 Sodium 129 L (137-145) mmol/L Potassium 3.5 L (3.6-5.0) mmol/L Chloride 92.1 L (98-107) mmol/L Carbon Dioxide 25 (22-30) mmol/L BUN 35 H (9-20) mg/dL Creatinine 10.2 H (0.8-1.3) mg/dL Glucose 103 H (75-100) mg/dL Calcium 8.7 (8.4-10.2) mg/dL Adrenal panel 02/19/21 Range/Units 09:14 Sodium 129 L (137-145) mmol/L Potassium 3.5 L (3.6-5.0) mmol/L Chloride 92.1 L (98-107) mmol/L Carbon Dioxide 25 (22-30) mmol/L BUN 35 H (9-20) mg/dL Creatinine 10.2 H (0.8-1.3) mg/dL Glucose 103 H (75-100) mg/dL Calcium 8.7 (8.4-10.2) mg/dL
[2021-02-19] MEDS: MORPHINE 2 MG/1 ML INJ IV PRN (15:54)
[2021-02-19] MEDS ORDERED: SODIUM CHLORIDE 0.9% 100 ML IV PRN (16:53)
--- NOTE | 2021-02-19 16:54 | Progress Note ---
Assessment and Plan Assessment: * ESRD previouaslyon peritoneal dialysis; now on back up HD (on peritoneal dialysis for 2 years with no history of peritonitis) * Small bowel obstruction --s/p ex-lap with jejuno-ileal anastamosis --s/p ex lap with extensive lysis of adhesions and two small bowel resections with primary anastamosis for SBO with necrotic segment small bowel. --s/p ex lap, resection of perforated anastamosis, washout and abthera wound vac placement. --s/p ex lap with right hemicolectomy. * Staph epi bacteremia * Septic shock - resolved * Hyperkalemia * Anemia of ESRD * Post op ileus * Paroxysmal atrial fibrillation * Hx of nonischemic cardiomyopathy, resolving --LVEF 50-55% by echo this presentation Plan: * Permcath removed on (following HD) due to bacteremia. Surveillance cultures now negative * Reinsertion of permcath tomorrow * Resume MWF schedule * Epogen w/ dialysis -20k * Abx per primary team * Rate control per cardiology * Nutrition per primary team - currently receiving TPN/PPN due to inability to use GI tract * Maintatin MAP >65 * Discharge planning in progress Subjective Date of service: 02/19/21 Principal diagnosis: Ac hypoxemic resp failure; Severe Sepsis; Peritonitis; Acute SBO; ESRD; CHF Interval history: Patient has no complaints today Objective - Vital Signs Vital signs: Vital Signs - 12hr 02/19/21 02/19/21 02/19/21 06:26 06:27 07:26 Temperature 98.4 F Pulse Rate 72 72 84 Respiratory 16 Rate Blood Pressure 158/74 158/74 167/83 O2 Sat by Pulse 97 Oximetry 02/19/21 02/19/21 02/19/21 09:28 11:54 14:58 Temperature 98.4 F Pulse Rate 84 76 85 Respiratory 16 Rate Blood Pressure 167/83 155/73 155/73 O2 Sat by Pulse 97 Oximetry 02/19/21 14:59 Temperature Pulse Rate 85 Respiratory Rate Blood Pressure 155/73 O2 Sat by Pulse Oximetry - General Appearance General appearance: well-developed, well-nourished EENT: ATNC Respiratory: Present: Clear to Ascultation Cardiology: regular, S1S2 Integumentary: warm and dry Neurologic: no focal deficit, alert and oriented x3 Musculoskeletal: other (no edema) Psychiatric: cooperative - Lab 02/18/21 07:39 02/19/21 09:14 Most recent lab results ABG pH 7.345 pH Units (7.350-7.450) L 01/07/21 17:14 ABG pCO2 40.3 mm Hg 01/07/21 17:14 ABG pO2 67.4 mm Hg (80.0-90.0) L 01/07/21 17:14 ABG HCO3 21.5 mmol/L (20.0-26.0) 01/07/21 17:14 ABG O2 Saturation 94.3 % (95.0-99.0) L 01/07/21 17:14 Calcium 8.7 mg/dL (8.4-10.2) 02/19/21 09:14 Phosphorus 3.40 mg/dL (2.5-4.5) D 02/19/21 09:14 Magnesium 1.60 mg/dL (1.7-2.3) L 02/19/21 09:14 Medications & Allergies - Medications Allergies/Adverse Reactions: Allergies No Known Allergies Allergy (Verified 06/09/20 15:27) Home Medications: Home Medications Medication Instructions Recorded Confirmed Last Taken Type Albuterol Mdi (or & Nicu Only) 2 puff IH QID PRN #1 inhalation 04/01/17 02/05/21 10/31/20 09:00 Rx [ProAir HFA Inhaler] Calcium Acetate 667 mg PO DAILY 04/20/20 02/05/21 10/31/20 09:00 History Centrum Men's Tablet 1 tab PO DAILY 04/20/20 02/05/21 10/31/20 09:00 History Cinacalcet 30 mg PO DAILY 04/20/20 02/05/21 10/31/20 09:00 History Dialyvite with Zinc Tablet 1 tab PO DAILY 04/20/20 02/05/21 10/31/20 09:00 Histo ry Magnesium 250 mg PO BID 04/20/20 02/05/21 10/31/20 17:00 History Triamcinolone 0.1% 1 1000units TRANSDERMA DAILY 04/20/20 02/05/21 10/31/20 09:00 History Vit B12/Folic Acid/B6/Aa No.15 1,000 mg PO DAILY 04/20/20 02/05/21 10/31/20 09:00 History amLODIPine 10 mg PO DAILY 06/09/20 02/05/21 10/31/20 09:00 History AtorvaSTATin 40 mg PO HS 11/01/20 02/05/21 10/31/20 21:00 History Benadryl 25 mg PO HS 11/01/20 02/05/21 10/31/20 21:00 History Diclofenac 1 applic TRANSDERMA QID 11/01/20 02/05/21 10/31/20 19:00 History Fluticasone Propionate 1 spray INTRANASAL DAILY 11/01/20 02/05/21 10/31/20 09:00 History Vitamin D3 2,000 units PO QDAY 11/01/20 02/05/21 10/31/20 09:00 History carvediloL 12.5 mg PO DAILY 11/01/20 02/05/21 10/31/20 09:00 History hydrALAZINE 100 mg PO TID 11/01/20 02/05/21 10/31/20 19:00 History Active Medications: Generic Name Dose Route Start Last Admin Trade Name Freq PRN Reason Stop Dose Admin Acetaminophen 650 mg 02/14/21 09:00 02/14/21 16:34 Acetaminophen 325 Mg Tab PO 650 mg Q6H PRN Administration Pain, Mild (1-3) Clonidine HCl 0.2 mg 01/11/21 10:00 02/15/21 11:36 Clonidine Tts 0.2 Mg/24 Hr Patch TD Not Given We THOMAS Dextrose 50 ml 01/14/21 17:59 01/18/21 15:10 Dextrose 50% In Water (25gm) 50 Ml Syringe IV 20 ml Q30MIN PRN Administration Hypoglycemia Protocol Diphenhydramine HCl 50 mg 01/20/21 10:10 02/01/21 14:15 Diphenhydramine 50 Mg/Ml Vial IV 50 mg Q6H PRN Administration Itching Diphenoxylate HCl/Atropine 1 tab 02/06/21 18:00 02/19/21 12:58 Diphenoxylate/Atropine Tab PO 1 tab Q6H THOMAS Administration Famotidine 10 mg 12/24/20 13:00 02/19/21 09:27 Famotidine 20 Mg/2 Ml Inj IV 10 mg BID THOMAS Administration Fluticasone Propionate 50 mcg 02/07/21 10:00 02/19/21 12:58 Fluticasone Propionate Nasal [place] 16 Gm NS 50 mcg QDAY THOMAS Administration Haloperidol Lactate 5 mg 12/29/20 14:16 01/22/21 23:56 Haloperidol Lactate 5 Mg/1 Ml Inj IV 5 mg Q12H PRN Administration Agitation Heparin Sodium (Porcine) 5,000 unit 12/24/20 10:00 02/19/21 09:29 Heparin 5,000 Unit/1 Ml Vial SUB-Q 5,000 unit Q12HR THOMAS Administration Hydralazine HCl 10 mg 01/10/21 14:00 02/19/21 14:58 Hydralazine 20 Mg/1 Ml Inj IV 10 mg Q4HR THOMAS Administration Hydrocortisone Acetate 1 applic 02/01/21 18:43 Hydrocortisone 1% Cream 28.4gm TP Q8H PRN Skin Irritation Hydromorphone HCl 0.25 mg 01/09/21 10:53 02/15/21 22:47 Hydromorphone 1 Mg/1 Ml Inj IV 0.25 mg Q6H PRN Administration Pain , Severe (7-10) Sodium Chloride 100 mls @ 999 mls/hr 02/16/21 10:00 Nacl 0.9% IV RY[place] PRN Hypotension Amino Acids/Electrolytes/Dextrose 2,016 mls @ 84 mls/hr 02/18/21 20:00 02/18/21 20:00 Tpn Adult IV 02/19/21 19:59 84 mls/hr DAILY@[email or web address] [facility] Administration Protocol Amino Acids/Electrolytes/Dextrose 2,016 mls @ 84 mls/hr 02/19/21 20:00 Tpn Adult IV 02/20/21 19:59 DAILY@1999 [facility] Protocol Magnesium Sulfate 2 gm in 50 mls @ 25 mls/hr 02/19/21 18:00 Magnesium Sulfate 2gm/50ml IV 02/19/21 19:59 ONCE ONE Insulin Glargine 5 units 01/18/21 22:00 02/18/21 22:59 Insulin Glargine 100 Units/Ml SUB-Q 5 units QHS THOMAS Administration Insulin Human Lispro 0 unit 01/03/21 12:00 02/19/21 12:53 Insulin Lispro 100 Unit/Ml SUB-Q Not Given Q6HR [facility] Protocol Loperamide HCl 2 mg 02/19/21 14:39 Loperamide 2 Mg Cap PO Q2H PRN Diarrhea Metoprolol Tartrate 25 mg 02/14/21 14:00 02/19/21 14:59 Metoprolol Tartrate 25 Mg Tab PO 25 mg Q8HR THOMAS Administration Morphine Sulfate 2 mg 02/02/21 12:00 02/19/21 15:54 Morphine 2 Mg/1 Ml Inj IV 2 mg Q3H PRN Administration Pain, Moderate (4-6) Ondansetron HCl 4 mg 01/25/21 11:56 02/16/21 07:06 Ondansetron 4 Mg/2 Ml Inj IV 4 mg Q4H PRN Administration Nausea And Vomiting Scopolamine 1 each 01/15/21 11:00 02/17/21 12:11 Scopolamine Transdermal Patch 72 Hr TD 1 each Q3D THOMAS Administration Sodium Chloride 10 ml 12/22/20 22:00 02/19/21 12:59 Sodium Chloride 0.9% 10 Ml Flush Syringe IV Not Given BID THOMAS Sodium Chloride 10 ml 12/22/20 19:42 01/29/21 02:08 Sodium Chloride 0.9% 10 Ml Flush Syringe IV 10 ml PRN PRN Administration LINE FLUSH
--- NOTE | 2021-02-19 17:19 | Progress Note ---
Assessment and Plan Acute hypoxemic respiratory failure s/p mechanical ventilatory support. Severe Sepsis Peritonitis Acute small-bowel obstruction with tissue necrosis. End-stage renal disease, on dialysis. Hypertension. Crohn's disease. Gastroesophageal reflux disease. Heart failure with reduced ejection fraction. Hyperkalemia. Anemia that is normocytic. Lactic acidosis. Oropharyngeal dysphagia - tunneled PICC removed - repl;eric in 48-72 hours - continue antiinfective's per ID rec's - follow clinically for S&S of infection re: fevers / WBC - continue care as below otherwise; - continue incentive spirometry - continue octreotide - continue total parenteral nutrition - continue wound care per RN/WCN - continue to wean supplemental oxygen for target O2 sat's > 92% acutely - aspiration precautions - continue bronchodilators with pulmonary hygiene per RT - wean per pulmonary driven protocols otherwise - HD/UF per nephrology prescription for toxin and volume control - avoid nephrotoxins, renally dose all medications - continue accuchecks with glycemic control per SSI for target blood glucose of <180 mg/dL; avoid hypoglycemia - continue to avoid benzodiazepine's, reduce the possibility of delirium - AB's per ID rec's - prn analgesia per pain score - Maintenance of sleep-wake cycle, avoid delirium - G.I. & VTE prophylaxis - PT/OT/ROM exercises - continue mobility protocols for pressure ulcer prophylaxis - Monitor hemodynamics closely - continue other care per attending / other consultants - discharge planning ongoing concurrently .... Re-evaluate in am & prn Subjective Date of service: 02/19/21 Principal diagnosis: Ac hypoxemic resp failure; Severe Sepsis; Peritonitis; Acute SBO; ESRD; CHF Interval history: Patient is seen today for: Ac hypoxemic resp failure; Severe Sepsis; Peritonitis; Acute SBO; ESRD on Dialysis; HTN; Crohn's disease; HFrEF Seen and examined at bedside; 24hour events reviewed; nursing and respiratory care staff consulted; no adverse overnight events reported to me; resting in bed; Objective Vital Signs - 12hr 02/19/21 02/19/21 02/19/21 06:26 06:27 07:26 Temperature 98.4 F Pulse Rate 72 72 84 Respiratory 16 Rate Blood Pressure 158/74 158/74 167/83 O2 Sat by Pulse 97 Oximetry 02/19/21 02/19/21 02/19/21 09:28 11:54 14:58 Temperature 98.4 F Pulse Rate 84 76 85 Respiratory 16 Rate Blood Pressure 167/83 155/73 155/73 O2 Sat by Pulse 97 Oximetry 02/19/21 02/19/21 14:59 16:47 Temperature 97.5 F L Pulse Rate 85 85 Respiratory 16 Rate Blood Pressure 155/73 172/91 O2 Sat by Pulse 97 Oximetry Constitutional: no acute distress Eyes: non-icteric ENT: oropharynx moist Neck: supple, no lymphadenopathy, no JVD Effort: normal Ascultation: Bilateral: clear, diminished breath sounds, rales, rhonchi (scant bases) Percussion: Bilateral: not dull Cardiovascular: regular rate and rhythm, other (S1,S2) Gastrointestinal: hypoactive bowel sounds, soft, non-tender, non-distended (p rotuberant), other (HARIS-drain; + PEG) Integumentary: other (Midline abdominal incision ) Extremities: no cyanosis, no edema, pulses normal, no ischemia or petechiae Neurologic: non-focal exam (grossly), pupils equal and round, CN II-XII normal Psychiatric: mood appropriate, affect normal CBC and BMP: 02/18/21 07:39 02/19/21 09:14 ABG, PT/INR, D-dimer: ABG ABG pH 7.345 pH Units (7.350-7.450) L 01/07/21 17:14 POC ABG pCO2 41.4 mmHg (32.0-48.0) 01/07/21 03:07 ABG pCO2 40.3 mm Hg 01/07/21 17:14 POC ABG pO2 94.5 mmHg (83-108) 01/07/21 03:07 ABG pO2 67.4 mm Hg (80.0-90.0) L 01/07/21 17:14 POC ABG HCO3 22.7 01/07/21 03:07 ABG O2 Saturation 94.3 % (95.0-99.0) L 01/07/21 17:14 PT/INR, D-dimer PT 16.9 Sec. (12.2-14.9) H 01/01/21 12:45 INR 1.39 (0.87-1.13) H 01/01/21 12:45 Abnormal lab findings: Abnormal Labs 12/22/20 12/22/20 12/22/20 14:38 14:38 14:38 WBC RBC Hgb 11.2 L Hct 35.0 L MCV MCHC RDW 16.7 H Plt Count Lymph % (Auto) Vance % (Auto) Eos % (Auto) Lymph # (Auto) Vance # (Auto) Eos # (Auto) Seg Neutrophils % Seg Neuts % (Manual) 94.0 H Lymphocytes % (Manual) 5.0 L Monocytes % (Manual) Seg Neutrophils # Seg Neutrophils # Man Lymphocytes # (Manual) 0.3 L Monocytes # (Manual) PT INR ABG pH POC ABG pCO2 POC ABG pO2 ABG pO2 ABG HCO3 ABG O2 Saturation ABG Base Excess ABG Hemoglobin ABG Oxyhemoglobin ABG Sodium ABG Potassium ABG Chloride ABG Glucose Oxyhemoglobin Sodium Potassium Chloride Carbon Dioxide BUN 58 H Creatinine 13.2 H Glucose 113 H POC Glucose Lactic Acid 3.60 H* Calcium Phosphorus Magnesium Iron TIBC Transferrin Ferritin Total Bilirubin 1.30 H AST ALT Alkaline Phosphatase 155 H Total Protein Albumin Triglycerides Arterial Blood Glucose Arterial Blood Ionized Calcium Digoxin Crossmatch 12/22/20 12/22/20 12/23/20 16:26 17:47 05:22 WBC RBC Hgb Hct MCV MCHC RDW Plt Count Lymph % (Auto) Vance % (Auto) Eos % (Auto) Lymph # (Auto) Vance # (Auto) Eos # (Auto) Seg Neutrophils % Seg Neuts % (Manual) Lymphocytes % (Manual) Monocytes % (Manual) Seg Neutrophils # Seg Neutrophils # Man Lymphocytes # (Manual) Monocytes # (Manual) PT INR ABG pH POC ABG pCO2 POC ABG pO2 ABG pO2 ABG HCO3 ABG O2 Saturation ABG Base Excess ABG Hemoglobin ABG Oxyhemoglobin ABG Sodium ABG Potassium ABG Chloride ABG Glucose Oxyhemoglobin Sodium Potassium Chloride Carbon Dioxide BUN Creatinine Glucose POC Glucose Lactic Acid 2.80 H* 3.10 H* 2.30 H* Calcium Phosphorus Magnesium Iron TIBC Transferrin Ferritin Total Bilirubin AST ALT Alkaline Phosphatase Total Protein Albumin Triglycerides Arterial Blood Glucose Arterial Blood Ionized Calcium Digoxin Crossmatch 12/23/20 12/23/20 12/23/20 05:22 05:22 06:35 WBC 12.1 H RBC Hgb 11.0 L Hct 33.7 L MCV MCHC RDW 16.9 H Plt Count Lymph % (Auto) Vance % (Auto) Eos % (Auto) Lymph # (Auto) Vance # (Auto) Eos # (Auto) Seg Neutrophils % Seg Neuts % (Manual) 93.0 H Lymphocytes % (Manual) 1.0 L Monocytes % (Manual) Seg Neutrophils # Seg Neutrophils # Man 11.3 H Lymphocytes # (Manual) 0.1 L Monocytes # (Manual) PT INR ABG pH POC ABG pCO2 POC ABG pO2 ABG pO2 ABG HCO3 ABG O2 Saturation ABG Base Excess ABG Hemoglobin ABG Oxyhemoglobin ABG Sodium ABG Potassium ABG Chloride ABG Glucose Oxyhemoglobin Sodium Potassium 5.7 H D Chloride Carbon Dioxide BUN 73 H Creatinine 14.2 H Glucose POC Glucose Lactic Acid 2.30 H* Calcium 7.9 L Phosphorus Magnesium Iron TIBC Transferrin Ferritin Total Bilirubin 1.40 H AST 119 H ALT 130 H Alkaline Phosphatase 183 H Total Protein 6.1 L Albumin 3.6 L Triglycerides Arterial Blood Glucose Arterial Blood Ionized Calcium Digoxin Crossmatch 12/23/20 12/23/20 12/23/20 11:40 13:53 16:47 WBC RBC Hgb 10.0 L Hct 30.4 L MCV MCHC RDW Plt Count Lymph % (Auto) Vance % (Auto) Eos % (Auto) Lymph # (Auto) Vance # (Auto) Eos # (Auto) Seg Neutrophils % Seg Neuts % (Manual) Lymphocytes % (Manual) Monocytes % (Manual) Seg Neutrophils # Seg Neutrophils # Man Lymphocytes # (Manual) Monocytes # (Manual) PT INR ABG pH POC ABG pCO2 POC ABG pO2 137.5 H ABG pO2 ABG HCO3 ABG O2 Saturation ABG Base Excess ABG Hemoglobin 9.7 L ABG Oxyhemoglobin ABG Sodium 134.1 L ABG Potassium 6.6 H ABG Chloride ABG Glucose 103 H Oxyhemoglobin Sodium Potassium Chloride Carbon Dioxide BUN Creatinine Glucose POC Glucose Lactic Acid Calcium Phosphorus Magnesium Iron TIBC Transferrin Ferritin Total Bilirubin AST ALT Alkaline Phosphatase Total Protein Albumin Triglycerides Arterial Blood Glucose 103 H Arterial Blood Ionized Calcium 3.8 L Digoxin Crossmatch See Detail 12/23/20 12/23/20 12/24/20 20:35 20:40 01:20 WBC RBC Hgb Hct MCV MCHC RDW Plt Count Lymph % (Auto) Vance % (Auto) Eos % (Auto) Lymph # (Auto) Vance # (Auto) Eos # (Auto) Seg Neutrophils % Seg Neuts % (Manual) Lymphocytes % (Manual) Monocytes % (Manual) Seg Neutrophils # Seg Neutrophils # Man Lymphocytes # (Manual) Monocytes # (Manual) PT INR ABG pH 7.252 L POC ABG pCO2 POC ABG pO2 ABG pO2 50.1 L ABG HCO3 ABG O2 Saturation 81.1 L ABG Base Excess -5.9 L ABG Hemoglobin 12.1 L ABG Oxyhemoglobin ABG Sodium ABG Potassium ABG Chloride ABG Glucose Oxyhemoglobin 78.6 L Sodium 134 L Potassium 6.9 H* D 6.3 H* Chloride Carbon Dioxide 18 L 20 L BUN 87 H 91 H Creatinine 15.3 H 15.3 H Glucose 103 H POC Glucose Lactic Acid Calcium 6.9 L 7.5 L Phosphorus Magnesium Iron TIBC Transferrin Ferritin Total Bilirubin AST ALT Alkaline Phosphatase Total Protein Albumin Triglycerides Arterial Blood Glucose Arterial Blood Ionized Calcium Digoxin Crossmatch 12/24/20 12/24/20 12/24/20 04:00 10:29 10:29 WBC RBC 3.49 L Hgb 10.5 L Hct 31.2 L MCV MCHC RDW 17.5 H Plt Count 124 L Lymph % (Auto) 3.7 L Vance % (Auto) 9.8 H Eos % (Auto) Lymph # (Auto) 0.2 L Vance # (Auto) Eos # (Auto) Seg Neutrophils % 85.9 H Seg Neuts % (Manual) Lymphocytes % (Manual) Monocytes % (Manual) Seg Neutrophils # Seg Neutrophils # Man Lymphocytes # (Manual) Monocytes # (Manual) PT INR ABG pH POC ABG pCO2 28.1 L POC ABG pO2 ABG pO2 ABG HCO3 ABG O2 Saturation ABG Base Excess ABG Hemoglobin ABG Oxyhemoglobin ABG Sodium 133.9 L ABG Potassium 5.3 H ABG Chloride 108.0 H ABG Glucose Oxyhemoglobin Sodium Potassium 5.6 H Chloride Carbon Dioxide 19 L BUN 99 H Creatinine 16.9 H Glucose 52 L POC Glucose Lactic Acid Calcium 7.6 L Phosphorus Magnesium Iron TIBC Transferrin Ferritin Total Bilirubin 3.50 H AST 67 H ALT 71 H Alkaline Phosphatase Total Protein 3.5 L D Albumin 2.1 L Triglycerides Arterial Blood Glucose Arterial Blood Ionized Calcium 4.0 L Digoxin Crossmatch 12/25/20 12/25/20 12/25/20 03:33 04:00 04:00 WBC 3.8 L RBC 2.90 L Hgb 8.6 L Hct 25.7 L MCV MCHC RDW 16.7 H Plt Count 113 L Lymph % (Auto) Vance % (Auto) Eos % (Auto) Lymph # (Auto) Vance # (Auto) Eos # (Auto) Seg Neutrophils % Seg Neuts % (Manual) Lymphocytes % (Manual) Monocytes % (Manual) Seg Neutrophils # Seg Neutrophils # Man Lymphocytes # (Manual) Monocytes # (Manual) PT INR ABG pH 7.544 H POC ABG pCO2 28.2 L POC ABG pO2 62.8 L ABG pO2 ABG HCO3 ABG O2 Saturation ABG Base Excess ABG Hemoglobin 9.3 L ABG Oxyhemoglobin 93.0 L ABG Sodium 130.3 L ABG Potassium ABG Chloride ABG Glucose 97 H Oxyhemoglobin Sodium Potassium Chloride Carbon Dioxide BUN 62 H Creatinine 11.4 H Glucose POC Glucose Lactic Acid Calcium 7.7 L Phosphorus 5.00 H Magnesium Iron TIBC Transferrin Ferritin Total Bilirubin AST ALT Alkaline Phosphatase Total Protein Albumin Triglycerides Arterial Blood Glucose 97 H Arterial Blood Ionized Calcium 3.9 L Digoxin Crossmatch 12/26/20 12/26/20 12/27/20 04:46 Unknown 03:40 WBC 4.1 L RBC 2.61 L Hgb 7.8 L Hct 23.4 L MCV MCHC RDW 17.1 H Plt Count 119 L Lymph % (Auto) 5.3 L Vance % (Auto) 10.6 H Eos % (Auto) Lymph # (Auto) 0.2 L Vance # (Auto) Eos # (Auto) Seg Neutrophils % 78.8 H Seg Neuts % (Manual) Lymphocytes % (Manual) Monocytes % (Manual) Seg Neutrophils # Seg Neutrophils # Man Lymphocytes # (Manual) Monocytes # (Manual) PT INR ABG pH 7.333 L 7.332 L POC ABG pCO2 POC ABG pO2 ABG pO2 ABG HCO3 26.9 H ABG O2 Saturation ABG Base Excess -2.4 L ABG Hemoglobin 6.8 L 7.2 L ABG Oxyhemoglobin ABG Sodium ABG Potassium ABG Chloride ABG Glucose Oxyhemoglobin 93.0 L 93.1 L Sodium Potassium Chloride Carbon Dioxide BUN Creatinine Glucose POC Glucose Lactic Acid Calcium Phosphorus Magnesium Iron TIBC Transferrin Ferritin Total Bilirubin AST ALT Alkaline Phosphatase Total Protein Albumin Triglycerides Arterial Blood Glucose Arterial Blood Ionized Calcium Digoxin Crossmatch 12/27/20 12/27/20 12/27/20 06:40 06:40 11:22 WBC 4.4 L RBC 2.49 L Hgb 7.4 L Hct 22.4 L MCV MCHC RDW 17.1 H Plt Count 111 L Lymph % (Auto) 6.7 L Vance % (Auto) 12.6 H Eos % (Auto) Lymph # (Auto) 0.3 L Vance # (Auto) Eos # (Auto) Seg Neutrophils % 77.6 H Seg Neuts % (Manual) Lymphocytes % (Manual) Monocytes % (Manual) Seg Neutrophils # Seg Neutrophils # Man Lymphocytes # (Manual) Monocytes # (Manual) PT INR ABG pH POC ABG pCO2 POC ABG pO2 ABG pO2 ABG HCO3 ABG O2 Saturation ABG Base Excess ABG Hemoglobin ABG Oxyhemoglobin ABG Sodium ABG Potassium ABG Chloride ABG Glucose Oxyhemoglobin Sodium Potassium Chloride Carbon Dioxide BUN 64 H Creatinine 9.8 H Glucose 147 H POC Glucose 134 H Lactic Acid Calcium 8.3 L Phosphorus 5.00 H Magnesium Iron TIBC Transferrin Ferritin Total Bilirubin 3.70 H AST 72 H ALT Alkaline Phosphatase 142 H Total Protein 5.1 L D Albumin 2.9 L Triglycerides Arterial Blood Glucose Arterial Blood Ionized Calcium Digoxin Crossmatch 12/27/20 12/27/20 12/28/20 17:29 23:31 03:09 WBC RBC Hgb Hct MCV MCHC RDW Plt Count Lymph % (Auto) Vance % (Auto) Eos % (Auto) Lymph # (Auto) Vance # (Auto) Eos # (Auto) Seg Neutrophils % Seg Neuts % (Manual) Lymphocytes % (Manual) Monocytes % (Manual) Seg Neutrophils # Seg Neutrophils # Man Lymphocytes # (Manual) Monocytes # (Manual) PT INR ABG pH 7.474 H POC ABG pCO2 POC ABG pO2 ABG pO2 ABG HCO3 ABG O2 Saturation ABG Base Excess ABG Hemoglobin 7.8 L ABG Oxyhemoglobin ABG Sodium ABG Potassium ABG Chloride ABG Glucose Oxyhemoglobin Sodium Potassium Chloride Carbon Dioxide BUN Creatinine Glucose POC Glucose 121 H 131 H Lactic Acid Calcium Phosphorus Magnesium Iron TIBC Transferrin Ferritin Total Bilirubin AST ALT Alkaline Phosphatase Total Protein Albumin Triglycerides Arterial Blood Glucose Arterial Blood Ionized Calcium Digoxin Crossmatch 12/28/20 12/28/20 12/28/20 05:37 05:40 05:40 WBC 4.3 L RBC 2.40 L Hgb 7.2 L Hct 21.5 L MCV MCHC RDW 17.4 H Plt Count 112 L Lymph % (Auto) 6.5 L Vance % (Auto) 16.7 H Eos % (Auto) Lymph # (Auto) 0.3 L Vance # (Auto) Eos # (Auto) Seg Neutrophils % 71.1 H Seg Neuts % (Manual) Lymphocytes % (Manual) Monocytes % (Manual) Seg Neutrophils # Seg Neutrophils # Man Lymphocytes # (Manual) Monocytes # (Manual) PT INR ABG pH POC ABG pCO2 POC ABG pO2 ABG pO2 ABG HCO3 ABG O2 Saturation ABG Base Excess ABG Hemoglobin ABG Oxyhemoglobin ABG Sodium ABG Potassium ABG Chloride ABG Glucose Oxyhemoglobin Sodium Potassium Chloride Carbon Dioxide BUN 85 H Creatinine 11.5 H Glucose 132 H POC Glucose 121 H Lactic Acid Calcium 8.2 L Phosphorus Magnesium 2.40 H Iron TIBC Transferrin Ferritin Total Bilirubin 3.80 H AST 70 H ALT Alkaline Phosphatase 176 H Total Protein 5.0 L Albumin 2.9 L Triglycerides Arterial Blood Glucose Arterial Blood Ionized Calcium Digoxin Crossmatch 12/28/20 12/28/20 12/28/20 11:34 15:00 17:35 WBC RBC Hgb Hct MCV MCHC RDW Plt Count Lymph % (Auto) Vance % (Auto) Eos % (Auto) Lymph # (Auto) Vance # (Auto) Eos # (Auto) Seg Neutrophils % Seg Neuts % (Manual) Lymphocytes % (Manual) Monocytes % (Manual) Seg Neutrophils # Seg Neutrophils # Man Lymphocytes # (Manual) Monocytes # (Manual) PT INR ABG pH 7.461 H POC ABG pCO2 POC ABG pO2 72.2 L ABG pO2 ABG HCO3 ABG O2 Saturation ABG Base Excess ABG Hemoglobin 8.2 L ABG Oxyhemoglobin 93.6 L ABG Sodium 134.1 L ABG Potassium 3.2 L ABG Chloride ABG Glucose 135 H Oxyhemoglobin Sodium Potassium Chloride Carbon Dioxide BUN Creatinine Glucose POC Glucose 137 H 144 H Lactic Acid Calcium Phosphorus Magnesium Iron TIBC Transferrin Ferritin Total Bilirubin AST ALT Alkaline Phosphatase Total Protein Albumin Triglycerides Arterial Blood Glucose 135 H Arterial Blood Ionized Calcium 4.4 L Digoxin Crossmatch 12/28/20 12/28/20 12/29/20 19:44 Unknown 00:21 WBC RBC Hgb Hct MCV MCHC RDW Plt Count Lymph % (Auto) Vance % (Auto) Eos % (Auto) Lymph # (Auto) Vance # (Auto) Eos # (Auto) Seg Neutrophils % Seg Neuts % (Manual) Lymphocytes % (Manual) Monocytes % (Manual) Seg Neutrophils # Seg Neutrophils # Man Lymphocytes # (Manual) Monocytes # (Manual) PT INR ABG pH 7.474 H POC ABG pCO2 POC ABG pO2 ABG pO2 ABG HCO3 ABG O2 Saturation ABG Base Excess ABG Hemoglobin 7.8 L ABG Oxyhemoglobin ABG Sodium 133.2 L ABG Potassium ABG Chloride ABG Glucose 139 H Oxyhemoglobin Sodium 135 L Potassium Chloride 96.6 L Carbon Dioxide BUN 47 H Creatinine 7.4 H Glucose 130 H POC Glucose 142 H Lactic Acid Calcium 8.3 L Phosphorus Magnesium Iron TIBC Transferrin Ferritin Total Bilirubin AST ALT Alkaline Phosphatase Total Protein Albumin Triglycerides Arterial Blood Glucose 139 H Arterial Blood Ionized Calcium 4.3 L Digoxin Crossmatch 12/29/20 12/29/20 12/29/20 05:16 05:16 05:26 WBC RBC 2.53 L Hgb 7.7 L Hct 22.8 L MCV MCHC RDW 17.0 H Plt Count 130 L Lymph % (Auto) Vance % (Auto) Eos % (Auto) Lymph # (Auto) Vance # (Auto) Eos # (Auto) Seg Neutrophils % Seg Neuts % (Manual) 79.0 H Lymphocytes % (Manual) 9.0 L Monocytes % (Manual) Seg Neutrophils # Seg Neutrophils # Man Lymphocytes # (Manual) 0.6 L Monocytes # (Manual) PT INR ABG pH POC ABG pCO2 POC ABG pO2 ABG pO2 ABG HCO3 ABG O2 Saturation ABG Base Excess ABG Hemoglobin ABG Oxyhemoglobin ABG Sodium ABG Potassium ABG Chloride ABG Glucose Oxyhemoglobin Sodium Potassium 3.4 L Chloride 96.6 L Carbon Dioxide BUN 59 H Creatinine 8.3 H Glucose 127 H POC Glucose 141 H Lactic Acid Calcium 8.2 L Phosphorus Magnesium Iron TIBC Transferrin Ferritin Total Bilirubin 3.00 H AST 88 H ALT Alkaline Phosphatase 188 H Total Protein 5.1 L Albumin 2.8 L Triglycerides Arterial Blood Glucose Arterial Blood Ionized Calcium Digoxin Crossmatch 12/29/20 12/29/20 12/29/20 11:33 17:29 23:22 WBC RBC Hgb Hct MCV MCHC RDW Plt Count Lymph % (Auto) Vance % (Auto) Eos % (Auto) Lymph # (Auto) Vance # (Auto) Eos # (Auto) Seg Neutrophils % Seg Neuts % (Manual) Lymphocytes % (Manual) Monocytes % (Manual) Seg Neutrophils # Seg Neutrophils # Man Lymphocytes # (Manual) Monocytes # (Manual) PT INR ABG pH POC ABG pCO2 POC ABG pO2 ABG pO2 ABG HCO3 ABG O2 Saturation ABG Base Excess ABG Hemoglobin ABG Oxyhemoglobin ABG Sodium ABG Potassium ABG Chloride ABG Glucose Oxyhemoglobin Sodium Potassium Chloride Carbon Dioxide BUN Creatinine Glucose POC Glucose 144 H 130 H 117 H Lactic Acid Calcium Phosphorus Magnesium Iron TIBC Transferrin Ferritin Total Bilirubin AST ALT Alkaline Phosphatase Total Protein Albumin Triglycerides Arterial Blood Glucose Arterial Blood Ionized Calcium Digoxin Crossmatch 12/30/20 12/30/20 12/30/20 05:23 08:15 09:00 WBC RBC Hgb Hct MCV MCHC RDW Plt Count Lymph % (Auto) Vance % (Auto) Eos % (Auto) Lymph # (Auto) Vance # (Auto) Eos # (Auto) Seg Neutrophils % Seg Neuts % (Manual) Lymphocytes % (Manual) Monocytes % (Manual) Seg Neutrophils # Seg Neutrophils # Man Lymphocytes # (Manual) Monocytes # (Manual) PT INR ABG pH POC ABG pCO2 POC ABG pO2 ABG pO2 ABG HCO3 ABG O2 Saturation ABG Base Excess ABG Hemoglobin ABG Oxyhemoglobin ABG Sodium ABG Potassium ABG Chloride ABG Glucose Oxyhemoglobin Sodium 135 L Potassium Chloride 95.9 L Carbon Dioxide BUN 85 H Creatinine 10.6 H Glucose 128 H POC Glucose 135 H 127 H Lactic Acid Calcium 8.3 L Phosphorus Magnesium Iron TIBC Transferrin Ferritin Total Bilirubin 2.40 H AST 85 H ALT Alkaline Phosphatase 216 H Total Protein 5.3 L Albumin 2.6 L Triglycerides 155 H Arterial Blood Glucose Arterial Blood Ionized Calcium Digoxin Crossmatch 12/30/20 12/30/20 12/30/20 09:00 11:53 15:49 WBC RBC 2.61 L Hgb 7.8 L Hct 23.7 L MCV MCHC RDW 17.3 H Plt Count Lymph % (Auto) Vance % (Auto) Eos % (Auto) Lymph # (Auto) Vance # (Auto) Eos # (Auto) Seg Neutrophils % Seg Neuts % (Manual) Lymphocytes % (Manual) Monocytes % (Manual) Seg Neutrophils # Seg Neutrophils # Man Lymphocytes # (Manual) Monocytes # (Manual) PT INR ABG pH POC ABG pCO2 POC ABG pO2 ABG pO2 ABG HCO3 ABG O2 Saturation ABG Base Excess ABG Hemoglobin ABG Oxyhemoglobin ABG Sodium ABG Potassium ABG Chloride ABG Glucose Oxyhemoglobin Sodium Potassium Chloride Carbon Dioxide BUN Creatinine Glucose POC Glucose 155 H 146 H Lactic Acid Calcium Phosphorus Magnesium Iron TIBC Transferrin Ferritin Total Bilirubin AST ALT Alkaline Phosphatase Total Protein Albumin Triglycerides Arterial Blood Glucose Arterial Blood Ionized Calcium Digoxin Crossmatch 12/30/20 12/30/20 12/31/20 17:53 23:45 03:56 WBC RBC Hgb Hct MCV MCHC RDW Plt Count Lymph % (Auto) Vance % (Auto) Eos % (Auto) Lymph # (Auto) Vance # (Auto) Eos # (Auto) Seg Neutrophils % Seg Neuts % (Manual) Lymphocytes % (Manual) Monocytes % (Manual) Seg Neutrophils # Seg Neutrophils # Man Lymphocytes # (Manual) Monocytes # (Manual) PT INR ABG pH POC ABG pCO2 POC ABG pO2 49.4 L ABG pO2 ABG HCO3 ABG O2 Saturation ABG Base Excess ABG Hemoglobin 10.3 L ABG Oxyhemoglobin 84.2 L ABG Sodium 133.1 L ABG Potassium ABG Chloride ABG Glucose 173 H Oxyhemoglobin Sodium Potassium Chloride Carbon Dioxide BUN Creatinine Glucose POC Glucose 139 H 173 H Lactic Acid Calcium Phosphorus Magnesium Iron TIBC Transferrin Ferritin Total Bilirubin AST ALT Alkaline Phosphatase Total Protein Albumin Triglycerides Arterial Blood Glucose 173 H Arterial Blood Ionized Calcium Digoxin Crossmatch 12/31/20 12/31/20 12/31/20 05:07 06:51 06:51 WBC 20.3 H RBC 3.32 L Hgb 9.8 L Hct 30.3 L D MCV MCHC RDW 17.3 H Plt Count Lymph % (Auto) Vance % (Auto) Eos % (Auto) Lymph # (Auto) Vance # (Auto) Eos # (Auto) Seg Neutrophils % Seg Neuts % (Manual) 87.0 H Lymphocytes % (Manual) 10.0 L Monocytes % (Manual) Seg Neutrophils # Seg Neutrophils # Man 17.7 H Lymphocytes # (Manual) Monocytes # (Manual) PT INR ABG pH POC ABG pCO2 POC ABG pO2 ABG pO2 ABG HCO3 ABG O2 Saturation ABG Base Excess ABG Hemoglobin ABG Oxyhemoglobin ABG Sodium ABG Potassium ABG Chloride ABG Glucose Oxyhemoglobin Sodium Potassium 5.2 H D Chloride Carbon Dioxide BUN 62 H Creatinine 8.4 H Glucose 116 H POC Glucose 120 H Lactic Acid Calcium Phosphorus Magnesium 1.60 L Iron TIBC Transferrin Ferritin Total Bilirubin AST ALT Alkaline Phosphatase Total Protein Albumin Triglycerides Arterial Blood Glucose Arterial Blood Ionized Calcium Digoxin Crossmatch 12/31/20 12/31/20 12/31/20 09:38 12:19 12:22 WBC RBC Hgb Hct MCV MCHC RDW Plt Count Lymph % (Auto) Vance % (Auto) Eos % (Auto) Lymph # (Auto) Vance # (Auto) Eos # (Auto) Seg Neutrophils % Seg Neuts % (Manual) Lymphocytes % (Manual) Monocytes % (Manual) Seg Neutrophils # Seg Neutrophils # Man Lymphocytes # (Manual) Monocytes # (Manual) PT INR ABG pH POC ABG pCO2 POC ABG pO2 ABG pO2 354.0 H ABG HCO3 ABG O2 Saturation 99.6 H ABG Base Excess ABG Hemoglobin 9.1 L ABG Oxyhemoglobin ABG Sodium ABG Potassium ABG Chloride ABG Glucose Oxyhemoglobin Sodium Potassium 5.2 H Chloride Carbon Dioxide BUN Creatinine Glucose POC Glucose 132 H Lactic Acid Calcium Phosphorus Magnesium Iron TIBC Transferrin Ferritin Total Bilirubin AST ALT Alkaline Phosphatase Total Protein Albumin Triglycerides Arterial Blood Glucose Arterial Blood Ionized Calcium Digoxin Crossmatch 12/31/20 01/01/21 01/01/21 23:23 03:03 05:04 WBC RBC Hgb Hct MCV MCHC RDW Plt Count Lymph % (Auto) Vance % (Auto) Eos % (Auto) Lymph # (Auto) Vance # (Auto) Eos # (Auto) Seg Neutrophils % Seg Neuts % (Manual) Lymphocytes % (Manual) Monocytes % (Manual) Seg Neutrophils # Seg Neutrophils # Man Lymphocytes # (Manual) Monocytes # (Manual) PT INR ABG pH POC ABG pCO2 POC ABG pO2 79.6 L ABG pO2 ABG HCO3 ABG O2 Saturation ABG Base Excess ABG Hemoglobin 9.2 L ABG Oxyhemoglobin ABG Sodium 131.6 L ABG Potassium 5.8 H ABG Chloride ABG Glucose 177 H Oxyhemoglobin Sodium Potassium Chloride Carbon Dioxide BUN Creatinine Glucose POC Glucose 174 H 167 H Lactic Acid Calcium Phosphorus Magnesium Iron TIBC Transferrin Ferritin Total Bilirubin AST ALT Alkaline Phosphatase Total Protein Albumin Triglycerides Arterial Blood Glucose 177 H Arterial Blood Ionized Calcium Digoxin Crossmatch 01/01/21 01/01/2121 07:31 07:31 11:31 WBC 26.1 H RBC 2.95 L Hgb 8.6 L Hct 27.1 L MCV MCHC RDW 18.2 H Plt Count Lymph % (Auto) Vance % (Auto) Eos % (Auto) Lymph # (Auto) Vance # (Auto) Eos # (Auto) Seg Neutrophils % Seg Neuts % (Manual) 96.0 H Lymphocytes % (Manual) 4.0 L Monocytes % (Manual) Seg Neutrophils # Seg Neutrophils # Man 25.1 H Lymphocytes # (Manual) 1.0 L Monocytes # (Manual) PT INR ABG pH POC ABG pCO2 POC ABG pO2 ABG pO2 ABG HCO3 ABG O2 Saturation ABG Base Excess ABG Hemoglobin ABG Oxyhemoglobin ABG Sodium ABG Potassium ABG Chloride ABG Glucose Oxyhemoglobin Sodium Potassium 6.0 H Chloride Carbon Dioxide 21 L BUN 89 H Creatinine 10.5 H Glucose 179 H POC Glucose Lactic Acid Calcium Phosphorus Magnesium Iron TIBC Transferrin Ferritin Total Bilirubin AST ALT Alkaline Phosphatase Total Protein Albumin Triglycerides Arterial Blood Glucose Arterial Blood Ionized Calcium Digoxin Crossmatch See Detail 01/01/21 01/01/21 01/01/21 11:51 12:45 16:52 WBC RBC Hgb Hct MCV MCHC RDW Plt Count Lymph % (Auto) Vance % (Auto) Eos % (Auto) Lymph # (Auto) Vance # (Auto) Eos # (Auto) Seg Neutrophils % Seg Neuts % (Manual) Lymphocytes % (Manual) Monocytes % (Manual) Seg Neutrophils # Seg Neutrophils # Man Lymphocytes # (Manual) Monocytes # (Manual) PT 16.9 H INR 1.39 H ABG pH POC ABG pCO2 POC ABG pO2 ABG pO2 ABG HCO3 ABG O2 Saturation ABG Base Excess ABG Hemoglobin ABG Oxyhemoglobin ABG Sodium ABG Potassium ABG Chloride ABG Glucose Oxyhemoglobin Sodium Potassium Chloride Carbon Dioxide BUN Creatinine Glucose POC Glucose 157 H 177 H Lactic Acid Calcium Phosphorus Magnesium Iron TIBC Transferrin Ferritin Total Bilirubin AST ALT Alkaline Phosphatase Total Protein Albumin Triglycerides Arterial Blood Glucose Arterial Blood Ionized Calcium Digoxin Crossmatch 01/01/21 01/01/21 01/01/21 17:58 17:58 20:12 WBC 26.9 H RBC 3.14 L Hgb 9.3 L Hct 29.6 L MCV MCHC RDW 17.5 H Plt Count Lymph % (Auto) Vance % (Auto) Eos % (Auto) Lymph # (Auto) Vance # (Auto) Eos # (Auto) Seg Neutrophils % Seg Neuts % (Manual) 84.0 H Lymphocytes % (Manual) 4.0 L Monocytes % (Manual) 12.0 H Seg Neutrophils # Seg Neutrophils # Man 22.6 H Lymphocytes # (Manual) 1.1 L Monocytes # (Manual) 3.2 H PT INR ABG pH POC ABG pCO2 POC ABG pO2 ABG pO2 ABG HCO3 ABG O2 Saturation ABG Base Excess ABG Hemoglobin ABG Oxyhemoglobin ABG Sodium ABG Potassium ABG Chloride ABG Glucose Oxyhemoglobin Sodium 136 L Potassium 6.2 H* Chloride Carbon Dioxide 21 L BUN 92 H Creatinine 10.8 H Glucose 171 H POC Glucose 288 H Lactic Acid Calcium Phosphorus Magnesium Iron TIBC Transferrin Ferritin Total Bilirubin 2.10 H AST 223 H ALT 100 H Alkaline Phosphatase 206 H Total Protein 4.8 L Albumin 1.9 L Triglycerides Arterial Blood Glucose Arterial Blood Ionized Calcium Digoxin Crossmatch 01/02/21 01/02/21 01/02/21 00:12 00:45 03:05 WBC RBC Hgb Hct MCV MCHC RDW Plt Count Lymph % (Auto) Vance % (Auto) Eos % (Auto) Lymph # (Auto) Vance # (Auto) Eos # (Auto) Seg Neutrophils % Seg Neuts % (Manual) Lymphocytes % (Manual) Monocytes % (Manual) Seg Neutrophils # Seg Neutrophils # Man Lymphocytes # (Manual) Monocytes # (Manual) PT INR ABG pH POC ABG pCO2 POC ABG pO2 81.8 L ABG pO2 ABG HCO3 ABG O2 Saturation ABG Base Excess ABG Hemoglobin 8.0 L ABG Oxyhemoglobin ABG Sodium 129.8 L ABG Potassium 5.4 H ABG Chloride ABG Glucose 257 H Oxyhemoglobin Sodium 136 L Potassium 5.8 H Chloride 96.6 L Carbon Dioxide BUN 95 H Creatinine 11.2 H Glucose 238 H POC Glucose 223 H Lactic Acid Calcium Phosphorus Magnesium Iron TIBC Transferrin Ferritin Total Bilirubin AST ALT Alkaline Phosphatase Total Protein Albumin Triglycerides Arterial Blood Glucose 257 H Arterial Blood Ionized Calcium 4.0 L Digoxin Crossmatch 01/02/21 01/02/21 01/02/21 06:25 08:00 08:00 WBC 17.5 H RBC 2.31 L Hgb 6.7 L Hct 22.1 L D MCV 96 H MCHC 30 L RDW 18.4 H Plt Count Lymph % (Auto) Vance % (Auto) Eos % (Auto) Lymph # (Auto) Vance # (Auto) Eos # (Auto) Seg Neutrophils % Seg Neuts % (Manual) Lymphocytes % (Manual) Monocytes % (Manual) Seg Neutrophils # Seg Neutrophils # Man Lymphocytes # (Manual) Monocytes # (Manual) PT INR ABG pH POC ABG pCO2 POC ABG pO2 ABG pO2 ABG HCO3 ABG O2 Saturation ABG Base Excess ABG Hemoglobin ABG Oxyhemoglobin ABG Sodium ABG Potassium ABG Chloride ABG Glucose Oxyhemoglobin Sodium 134 L Potassium 5.3 H Chloride 92.9 L Carbon Dioxide BUN 101 H Creatinine 10.9 H Glucose 560 H* POC Glucose 239 H Lactic Acid Calcium 7.6 L Phosphorus 6.50 H Magnesium Iron TIBC Transferrin Ferritin Total Bilirubin AST ALT Alkaline Phosphatase Total Protein Albumin Triglycerides Arterial Blood Glucose Arterial Blood Ionized Calcium Digoxin Crossmatch 01/02/21 01/02/21 01/02/21 11:26 15:00 17:57 WBC RBC Hgb Hct MCV MCHC RDW Plt Count Lymph % (Auto) Vance % (Auto) Eos % (Auto) Lymph # (Auto) Vance # (Auto) Eos # (Auto) Seg Neutrophils % Seg Neuts % (Manual) Lymphocytes % (Manual) Monocytes % (Manual) Seg Neutrophils # Seg Neutrophils # Man Lymphocytes # (Manual) Monocytes # (Manual) PT INR ABG pH POC ABG pCO2 POC ABG pO2 ABG pO2 ABG HCO3 ABG O2 Saturation ABG Base Excess ABG Hemoglobin ABG Oxyhemoglobin ABG Sodium ABG Potassium ABG Chloride ABG Glucose Oxyhemoglobin Sodium Potassium Chloride Carbon Dioxide BUN Creatinine Glucose 241 H POC Glucose 205 H 272 H Lactic Acid Calcium Phosphorus Magnesium Iron TIBC Transferrin Ferritin Total Bilirubin AST ALT Alkaline Phosphatase Total Protein Albumin Triglycerides Arterial Blood Glucose Arterial Blood Ionized Calcium Digoxin Crossmatch 01/02/21 01/02/21 01/03/21 23:25 23:43 03:45 WBC RBC Hgb Hct MCV MCHC RDW Plt Count Lymph % (Auto) Vance % (Auto) Eos % (Auto) Lymph # (Auto) Vance # (Auto) Eos # (Auto) Seg Neutrophils % Seg Neuts % (Manual) Lymphocytes % (Manual) Monocytes % (Manual) Seg Neutrophils # Seg Neutrophils # Man Lymphocytes # (Manual) Monocytes # (Manual) PT INR ABG pH POC ABG pCO2 48.3 H POC ABG pO2 134.4 H 79.7 L ABG pO2 ABG HCO3 ABG O2 Saturation ABG Base Excess ABG Hemoglobin 7.7 L 8.6 L ABG Oxyhemoglobin ABG Sodium 131.8 L 130.4 L ABG Potassium ABG Chloride 97.0 L ABG Glucose 218 H 238 H Oxyhemoglobin Sodium Potassium Chloride Carbon Dioxide BUN Creatinine Glucose POC Glucose 218 H Lactic Acid Calcium Phosphorus Magnesium Iron TIBC Transferrin Ferritin Total Bilirubin AST ALT Alkaline Phosphatase Total Protein Albumin Triglycerides Arterial Blood Glucose 218 H 238 H Arterial Blood Ionized Calcium 4.1 L 4.0 L Digoxin Crossmatch 01/03/21 01/03/21 01/03/21 04:37 04:37 05:39 WBC 15.2 H RBC 2.38 L Hgb 7.3 L Hct 21.6 L MCV MCHC RDW 16.6 H Plt Count Lymph % (Auto) Vance % (Auto) Eos % (Auto) Lymph # (Auto) Vance # (Auto) Eos # (Auto) Seg Neutrophils % Seg Neuts % (Manual) Lymphocytes % (Manual) Monocytes % (Manual) Seg Neutrophils # Seg Neutrophils # Man Lymphocytes # (Manual) Monocytes # (Manual) PT INR ABG pH POC ABG pCO2 POC ABG pO2 ABG pO2 ABG HCO3 ABG O2 Saturation ABG Base Excess ABG Hemoglobin ABG Oxyhemoglobin ABG Sodium ABG Potassium ABG Chloride ABG Glucose Oxyhemoglobin Sodium 136 L Potassium Chloride 94.5 L Carbon Dioxide BUN 69 H Creatinine 8.0 H Glucose 219 H POC Glucose 222 H Lactic Acid Calcium 7.8 L Phosphorus 4.80 H D Magnesium Iron TIBC Transferrin Ferritin Total Bilirubin AST ALT Alkaline Phosphatase Total Protein Albumin Triglycerides Arterial Blood Glucose Arterial Blood Ionized Calcium Digoxin Crossmatch 01/03/21 01/03/21 01/03/21 11:29 18:49 23:37 WBC RBC Hgb Hct MCV MCHC RDW Plt Count Lymph % (Auto) Vance % (Auto) Eos % (Auto) Lymph # (Auto) Vance # (Auto) Eos # (Auto) Seg Neutrophils % Seg Neuts % (Manual) Lymphocytes % (Manual) Monocytes % (Manual) Seg Neutrophils # Seg Neutrophils # Man Lymphocytes # (Manual) Monocytes # (Manual) PT INR ABG pH POC ABG pCO2 POC ABG pO2 ABG pO2 ABG HCO3 ABG O2 Saturation ABG Base Excess ABG Hemoglobin ABG Oxyhemoglobin ABG Sodium ABG Potassium ABG Chloride ABG Glucose Oxyhemoglobin Sodium Potassium Chloride Carbon Dioxide BUN Creatinine Glucose POC Glucose 232 H 129 H 140 H Lactic Acid Calcium Phosphorus Magnesium Iron TIBC Transferrin Ferritin Total Bilirubin AST ALT Alkaline Phosphatase Total Protein Albumin Triglycerides Arterial Blood Glucose Arterial Blood Ionized Calcium Digoxin Crossmatch 01/04/21 01/04/21 01/04/21 03:22 04:38 04:38 WBC 11.1 H RBC 2.89 L Hgb 8.9 L Hct 26.2 L MCV MCHC RDW 16.1 H Plt Count Lymph % (Auto) Vance % (Auto) Eos % (Auto) Lymph # (Auto) Vance # (Auto) Eos # (Auto) Seg Neutrophils % Seg Neuts % (Manual) Lymphocytes % (Manual) Monocytes % (Manual) Seg Neutrophils # Seg Neutrophils # Man Lymphocytes # (Manual) Monocytes # (Manual) PT INR ABG pH POC ABG pCO2 POC ABG pO2 82.3 L ABG pO2 ABG HCO3 ABG O2 Saturation ABG Base Excess ABG Hemoglobin 8.9 L ABG Oxyhemoglobin ABG Sodium 130.5 L ABG Potassium ABG Chloride ABG Glucose 124 H Oxyhemoglobin Sodium Potassium Chloride 95.5 L Carbon Dioxide BUN 87 H Creatinine 9.7 H Glucose 118 H POC Glucose Lactic Acid Calcium 7.7 L Phosphorus Magnesium Iron TIBC Transferrin Ferritin Total Bilirubin AST ALT Alkaline Phosphatase Total Protein Albumin Triglycerides Arterial Blood Glucose 124 H Arterial Blood Ionized Calcium 3.5 L Digoxin Crossmatch 01/04/21 01/04/21 01/04/21 05:39 12:04 18:04 WBC RBC Hgb Hct MCV MCHC RDW Plt Count Lymph % (Auto) Vance % (Auto) Eos % (Auto) Lymph # (Auto) Vance # (Auto) Eos # (Auto) Seg Neutrophils % Seg Neuts % (Manual) Lymphocytes % (Manual) Monocytes % (Manual) Seg Neutrophils # Seg Neutrophils # Man Lymphocytes # (Manual) Monocytes # (Manual) PT INR ABG pH POC ABG pCO2 POC ABG pO2 ABG pO2 ABG HCO3 ABG O2 Saturation ABG Base Excess ABG Hemoglobin ABG Oxyhemoglobin ABG Sodium ABG Potassium ABG Chloride ABG Glucose Oxyhemoglobin Sodium Potassium Chloride Carbon Dioxide BUN Creatinine Glucose POC Glucose 134 H 125 H 131 H Lactic Acid Calcium Phosphorus Magnesium Iron TIBC Transferrin Ferritin Total Bilirubin AST ALT Alkaline Phosphatase Total Protein Albumin Triglycerides Arterial Blood Glucose Arterial Blood Ionized Calcium Digoxin Crossmatch 01/04/21 01/05/21 01/05/21 23:41 03:23 04:49 WBC RBC Hgb Hct MCV MCHC RDW Plt Count Lymph % (Auto) Vance % (Auto) Eos % (Auto) Lymph # (Auto) Vance # (Auto) Eos # (Auto) Seg Neutrophils % Seg Neuts % (Manual) Lymphocytes % (Manual) Monocytes % (Manual) Seg Neutrophils # Seg Neutrophils # Man Lymphocytes # (Manual) Monocytes # (Manual) PT INR ABG pH POC ABG pCO2 POC ABG pO2 62.8 L ABG pO2 ABG HCO3 ABG O2 Saturation ABG Base Excess ABG Hemoglobin 9.5 L ABG Oxyhemoglobin 92.0 L ABG Sodium 130.1 L ABG Potassium ABG Chloride ABG Glucose 148 H Oxyhemoglobin Sodium Potassium Chloride 96.9 L Carbon Dioxide BUN 57 H Creatinine 6.7 H Glucose 135 H POC Glucose 132 H Lactic Acid Calcium 8.0 L Phosphorus Magnesium Iron TIBC Transferrin Ferritin Total Bilirubin AST ALT Alkaline Phosphatase Total Protein Albumin Triglycerides Arterial Blood Glucose 148 H Arterial Blood Ionized Calcium 4.1 L Digoxin Crossmatch 01/05/21 01/05/21 01/05/21 05:04 11:48 12:39 WBC RBC 3.03 L Hgb 9.3 L Hct 27.6 L MCV MCHC RDW 16.5 H Plt Count Lymph % (Auto) Vance % (Auto) Eos % (Auto) Lymph # (Auto) Vance # (Auto) Eos # (Auto) Seg Neutrophils % Seg Neuts % (Manual) Lymphocytes % (Manual) Monocytes % (Manual) Seg Neutrophils # Seg Neutrophils # Man Lymphocytes # (Manual) Monocytes # (Manual) PT INR ABG pH POC ABG pCO2 POC ABG pO2 ABG pO2 ABG HCO3 ABG O2 Saturation ABG Base Excess ABG Hemoglobin ABG Oxyhemoglobin ABG Sodium ABG Potassium ABG Chloride ABG Glucose Oxyhemoglobin Sodium Potassium Chloride Carbon Dioxide BUN Creatinine Glucose POC Glucose 147 H 162 H Lactic Acid Calcium Phosphorus Magnesium Iron TIBC Transferrin Ferritin Total Bilirubin AST ALT Alkaline Phosphatase Total Protein Albumin Triglycerides Arterial Blood Glucose Arterial Blood Ionized Calcium Digoxin Crossmatch 01/05/21 01/05/21 01/06/21 17:50 23:32 04:15 WBC RBC Hgb Hct MCV MCHC RDW Plt Count Lymph % (Auto) Vance % (Auto) Eos % (Auto) Lymph # (Auto) Vance # (Auto) Eos # (Auto) Seg Neutrophils % Seg Neuts % (Manual) Lymphocytes % (Manual) Monocytes % (Manual) Seg Neutrophils # Seg Neutrophils # Man Lymphocytes # (Manual) Monocytes # (Manual) PT INR ABG pH POC ABG pCO2 POC ABG pO2 ABG pO2 191.0 H ABG HCO3 ABG O2 Saturation 99.2 H ABG Base Excess ABG Hemoglobin 9.0 L ABG Oxyhemoglobin ABG Sodium ABG Potassium ABG Chloride ABG Glucose Oxyhemoglobin Sodium Potassium Chloride Carbon Dioxide BUN Creatinine Glucose POC Glucose 155 H 115 H Lactic Acid Calcium Phosphorus Magnesium Iron TIBC Transferrin Ferritin Total Bilirubin AST ALT Alkaline Phosphatase Total Protein Albumin Triglycerides Arterial Blood Glucose Arterial Blood Ionized Calcium Digoxin Crossmatch 01/06/21 01/06/21 01/06/21 04:45 05:56 07:03 WBC RBC 2.95 L Hgb 9.1 L Hct 26.8 L MCV MCHC RDW 16.8 H Plt Count Lymph % (Auto) Vance % (Auto) Eos % (Auto) Lymph # (Auto) Vance # (Auto) Eos # (Auto) Seg Neutrophils % Seg Neuts % (Manual) Lymphocytes % (Manual) Monocytes % (Manual) Seg Neutrophils # Seg Neutrophils # Man Lymphocytes # (Manual) Monocytes # (Manual) PT INR ABG pH POC ABG pCO2 POC ABG pO2 ABG pO2 ABG HCO3 ABG O2 Saturation ABG Base Excess ABG Hemoglobin ABG Oxyhemoglobin ABG Sodium ABG Potassium ABG Chloride ABG Glucose Oxyhemoglobin Sodium 135 L Potassium Chloride 95.9 L Carbon Dioxide BUN 82 H Creatinine 8.7 H Glucose 127 H POC Glucose 136 H Lactic Acid Calcium 8.3 L Phosphorus Magnesium Iron TIBC Transferrin Ferritin Total Bilirubin AST ALT Alkaline Phosphatase Total Protein Albumin Triglycerides Arterial Blood Glucose Arterial Blood Ionized Calcium Digoxin Crossmatch 01/06/21 01/06/21 01/06/21 07:10 11:04 13:38 WBC RBC Hgb Hct MCV MCHC RDW Plt Count Lymph % (Auto) Vance % (Auto) Eos % (Auto) Lymph # (Auto) Vance # (Auto) Eos # (Auto) Seg Neutrophils % Seg Neuts % (Manual) Lymphocytes % (Manual) Monocytes % (Manual) Seg Neutrophils # Seg Neutrophils # Man Lymphocytes # (Manual) Monocytes # (Manual) PT INR ABG pH POC ABG pCO2 POC ABG pO2 ABG pO2 ABG HCO3 ABG O2 Saturation ABG Base Excess ABG Hemoglobin ABG Oxyhemoglobin ABG Sodium ABG Potassium ABG Chloride ABG Glucose Oxyhemoglobin Sodium Potassium Chloride Carbon Dioxide BUN Creatinine Glucose POC Glucose 178 H 155 H Lactic Acid Calcium Phosphorus Magnesium Iron TIBC Transferrin Ferritin Total Bilirubin AST ALT Alkaline Phosphatase Total Protein Albumin Triglycerides Arterial Blood Glucose Arterial Blood Ionized Calcium Digoxin Crossmatch See Detail 01/06/21 01/06/21 01/07/21 17:35 22:21 03:07 WBC RBC Hgb Hct MCV MCHC RDW Plt Count Lymph % (Auto) Vance % (Auto) Eos % (Auto) Lymph # (Auto) Vance # (Auto) Eos # (Auto) Seg Neutrophils % Seg Neuts % (Manual) Lymphocytes % (Manual) Monocytes % (Manual) Seg Neutrophils # Seg Neutrophils # Man Lymphocytes # (Manual) Monocytes # (Manual) PT INR ABG pH POC ABG pCO2 POC ABG pO2 ABG pO2 ABG HCO3 ABG O2 Saturation ABG Base Excess ABG Hemoglobin 11.9 L ABG Oxyhemoglobin ABG Sodium 135.6 L ABG Potassium ABG Chloride ABG Glucose 181 H Oxyhemoglobin Sodium Potassium Chloride Carbon Dioxide BUN Creatinine Glucose POC Glucose 138 H 202 H Lactic Acid Calcium Phosphorus Magnesium Iron TIBC Transferrin Ferritin Total Bilirubin AST ALT Alkaline Phosphatase Total Protein Albumin Triglycerides Arterial Blood Glucose 181 H Arterial Blood Ionized Calcium 4.3 L Digoxin Crossmatch 01/07/21 01/07/21 01/07/21 04:50 05:21 08:37 WBC 12.4 H RBC Hgb 11.1 L Hct 33.3 L D MCV MCHC RDW 17.0 H Plt Count Lymph % (Auto) 3.2 L Vance % (Auto) 9.4 H Eos % (Auto) Lymph # (Auto) 0.4 L Vance # (Auto) 1.2 H Eos # (Auto) Seg Neutrophils % 86.6 H Seg Neuts % (Manual) Lymphocytes % (Manual) Monocytes % (Manual) Seg Neutrophils # 10.7 H Seg Neutrophils # Man Lymphocytes # (Manual) Monocytes # (Manual) PT INR ABG pH POC ABG pCO2 POC ABG pO2 ABG pO2 ABG HCO3 ABG O2 Saturation ABG Base Excess ABG Hemoglobin ABG Oxyhemoglobin ABG Sodium ABG Potassium ABG Chloride ABG Glucose Oxyhemoglobin Sodium Potassium Chloride Carbon Dioxide BUN 60 H Creatinine 6.3 H Glucose 154 H POC Glucose 177 H Lactic Acid Calcium 8.3 L Phosphorus Magnesium Iron TIBC Transferrin Ferritin Total Bilirubin AST ALT Alkaline Phosphatase Total Protein Albumin Triglycerides Arterial Blood Glucose Arterial Blood Ionized Calcium Digoxin Crossmatch 01/07/21 01/07/21 01/07/21 11:21 12:19 17:11 WBC RBC Hgb Hct MCV MCHC RDW Plt Count Lymph % (Auto) Vance % (Auto) Eos % (Auto) Lymph # (Auto) Vance # (Auto) Eos # (Auto) Seg Neutrophils % Seg Neuts % (Manual) Lymphocytes % (Manual) Monocytes % (Manual) Seg Neutrophils # Seg Neutrophils # Man Lymphocytes # (Manual) Monocytes # (Manual) PT INR ABG pH POC ABG pCO2 POC ABG pO2 ABG pO2 ABG HCO3 ABG O2 Saturation ABG Base Excess ABG Hemoglobin ABG Oxyhemoglobin ABG Sodium ABG Potassium ABG Chloride ABG Glucose Oxyhemoglobin Sodium Potassium Chloride Carbon Dioxide BUN Creatinine Glucose POC Glucose 144 H 137 H 119 H Lactic Acid Calcium Phosphorus Magnesium Iron TIBC Transferrin Ferritin Total Bilirubin AST ALT Alkaline Phosphatase Total Protein Albumin Triglycerides Arterial Blood Glucose Arterial Blood Ionized Calcium Digoxin Crossmatch 01/07/21 01/07/21 01/08/21 17:14 23:39 04:34 WBC RBC Hgb Hct MCV MCHC RDW Plt Count Lymph % (Auto) Vance % (Auto) Eos % (Auto) Lymph # (Auto) Vance # (Auto) Eos # (Auto) Seg Neutrophils % Seg Neuts % (Manual) Lymphocytes % (Manual) Monocytes % (Manual) Seg Neutrophils # Seg Neutrophils # Man Lymphocytes # (Manual) Monocytes # (Manual) PT INR ABG pH 7.345 L POC ABG pCO2 POC ABG pO2 ABG pO2 67.4 L ABG HCO3 ABG O2 Saturation 94.3 L ABG Base Excess -3.9 L ABG Hemoglobin 8.9 L ABG Oxyhemoglobin ABG Sodium ABG Potassium ABG Chloride ABG Glucose Oxyhemoglobin 92.3 L Sodium Potassium Chloride Carbon Dioxide 20 L BUN 93 H Creatinine 8.8 H Glucose 120 H POC Glucose 129 H Lactic Acid Calcium Phosphorus Magnesium Iron TIBC Transferrin Ferritin Total Bilirubin AST ALT Alkaline Phosphatase 133 H Total Protein 5.4 L Albumin 1.9 L Triglycerides Arterial Blood Glucose Arterial Blood Ionized Calcium Digoxin Crossmatch 01/08/21 01/08/21 01/08/21 05:26 11:38 17:19 WBC RBC Hgb Hct MCV MCHC RDW Plt Count Lymph % (Auto) Vance % (Auto) Eos % (Auto) Lymph # (Auto) Vance # (Auto) Eos # (Auto) Seg Neutrophils % Seg Neuts % (Manual) Lymphocytes % (Manual) Monocytes % (Manual) Seg Neutrophils # Seg Neutrophils # Man Lymphocytes # (Manual) Monocytes # (Manual) PT INR ABG pH POC ABG pCO2 POC ABG pO2 ABG pO2 ABG HCO3 ABG O2 Saturation ABG Base Excess ABG Hemoglobin ABG Oxyhemoglobin ABG Sodium ABG Potassium ABG Chloride ABG Glucose Oxyhemoglobin Sodium Potassium Chloride Carbon Dioxide BUN Creatinine Glucose POC Glucose 125 H 146 H 136 H Lactic Acid Calcium Phosphorus Magnesium Iron TIBC Transferrin Ferritin Total Bilirubin AST ALT Alkaline Phosphatase Total Protein Albumin Triglycerides Arterial Blood Glucose Arterial Blood Ionized Calcium Digoxin Crossmatch 01/08/21 01/09/21 01/09/21 23:52 05:13 05:21 WBC RBC Hgb Hct MCV MCHC RDW Plt Count Lymph % (Auto) Vance % (Auto) Eos % (Auto) Lymph # (Auto) Vance # (Auto) Eos # (Auto) Seg Neutrophils % Seg Neuts % (Manual) Lymphocytes % (Manual) Monocytes % (Manual) Seg Neutrophils # Seg Neutrophils # Man Lymphocytes # (Manual) Monocytes # (Manual) PT INR ABG pH POC ABG pCO2 POC ABG pO2 ABG pO2 ABG HCO3 ABG O2 Saturation ABG Base Excess ABG Hemoglobin ABG Oxyhemoglobin ABG Sodium ABG Potassium ABG Chloride ABG Glucose Oxyhemoglobin Sodium Potassium Chloride Carbon Dioxide 16 L BUN 123 H Creatinine 10.8 H Glucose 145 H POC Glucose 143 H 144 H Lactic Acid Calcium Phosphorus 5.00 H D Magnesium 2.40 H Iron TIBC Transferrin Ferritin Total Bilirubin AST ALT Alkaline Phosphatase Total Protein Albumin Triglycerides Arterial Blood Glucose Arterial Blood Ionized Calcium Digoxin Crossmatch 01/09/21 01/09/21 01/09/21 12:08 17:20 23:56 WBC RBC Hgb Hct MCV MCHC RDW Plt Count Lymph % (Auto) Vance % (Auto) Eos % (Auto) Lymph # (Auto) Vance # (Auto) Eos # (Auto) Seg Neutrophils % Seg Neuts % (Manual) Lymphocytes % (Manual) Monocytes % (Manual) Seg Neutrophils # Seg Neutrophils # Man Lymphocytes # (Manual) Monocytes # (Manual) PT INR ABG pH POC ABG pCO2 POC ABG pO2 ABG pO2 ABG HCO3 ABG O2 Saturation ABG Base Excess ABG Hemoglobin ABG Oxyhemoglobin ABG Sodium ABG Potassium ABG Chloride ABG Glucose Oxyhemoglobin Sodium Potassium Chloride Carbon Dioxide BUN Creatinine Glucose POC Glucose 153 H 160 H 158 H Lactic Acid Calcium Phosphorus Magnesium Iron TIBC Transferrin Ferritin Total Bilirubin AST ALT Alkaline Phosphatase Total Protein Albumin Triglycerides Arterial Blood Glucose Arterial Blood Ionized Calcium Digoxin Crossmatch 01/10/21 01/10/21 01/10/21 04:52 05:44 07:41 WBC RBC Hgb Hct MCV MCHC RDW Plt Count Lymph % (Auto) Vance % (Auto) Eos % (Auto) Lymph # (Auto) Vance # (Auto) Eos # (Auto) Seg Neutrophils % Seg Neuts % (Manual) Lymphocytes % (Manual) Monocytes % (Manual) Seg Neutrophils # Seg Neutrophils # Man Lymphocytes # (Manual) Monocytes # (Manual) PT INR ABG pH POC ABG pCO2 POC ABG pO2 ABG pO2 ABG HCO3 ABG O2 Saturation ABG Base Excess ABG Hemoglobin ABG Oxyhemoglobin ABG Sodium ABG Potassium ABG Chloride ABG Glucose Oxyhemoglobin Sodium 135 L Potassium 3.5 L D Chloride 95.0 L Carbon Dioxide 21 L BUN 93 H Creatinine 8.3 H Glucose 127 H POC Glucose 135 H 157 H Lactic Acid Calcium Phosphorus Magnesium Iron TIBC Transferrin Ferritin Total Bilirubin AST ALT Alkaline Phosphatase Total Protein Albumin Triglycerides Arterial Blood Glucose Arterial Blood Ionized Calcium Digoxin Crossmatch 01/10/21 01/10/21 01/10/21 09:26 12:03 17:44 WBC 18.2 H RBC 3.14 L Hgb 9.7 L Hct 28.2 L MCV MCHC RDW 16.5 H Plt Count Lymph % (Auto) Vance % (Auto) Eos % (Auto) Lymph # (Auto) Vance # (Auto) Eos # (Auto) Seg Neutrophils % Seg Neuts % (Manual) 95.0 H Lymphocytes % (Manual) 3.0 L Monocytes % (Manual) Seg Neutrophils # Seg Neutrophils # Man 17.3 H Lymphocytes # (Manual) 0.5 L Monocytes # (Manual) PT INR ABG pH POC ABG pCO2 POC ABG pO2 ABG pO2 ABG HCO3 ABG O2 Saturation ABG Base Excess ABG Hemoglobin ABG Oxyhemoglobin ABG Sodium ABG Potassium ABG Chloride ABG Glucose Oxyhemoglobin Sodium Potassium Chloride Carbon Dioxide BUN Creatinine Glucose POC Glucose 163 H 171 H Lactic Acid Calcium Phosphorus Magnesium Iron TIBC Transferrin Ferritin Total Bilirubin AST ALT Alkaline Phosphatase Total Protein Albumin Triglycerides Arterial Blood Glucose Arterial Blood Ionized Calcium Digoxin Crossmatch 01/10/21 01/11/21 01/11/21 23:50 05:18 05:18 WBC RBC Hgb Hct MCV MCHC RDW Plt Count Lymph % (Auto) Vance % (Auto) Eos % (Auto) Lymph # (Auto) Vance # (Auto) Eos # (Auto) Seg Neutrophils % Seg Neuts % (Manual) Lymphocytes % (Manual) Monocytes % (Manual) Seg Neutrophils # Seg Neutrophils # Man Lymphocytes # (Manual) Monocytes # (Manual) PT INR ABG pH POC ABG pCO2 POC ABG pO2 ABG pO2 ABG HCO3 ABG O2 Saturation ABG Base Excess ABG Hemoglobin ABG Oxyhemoglobin ABG Sodium ABG Potassium ABG Chloride ABG Glucose Oxyhemoglobin Sodium 136 L Potassium Chloride 94.6 L Carbon Dioxide 19 L BUN 145 H Creatinine 10.6 H Glucose 152 H POC Glucose 151 H Lactic Acid Calcium Phosphorus 6.00 H D Magnesium Iron TIBC Transferrin Ferritin Total Bilirubin AST ALT Alkaline Phosphatase Total Protein Albumin Triglycerides Arterial Blood Glucose Arterial Blood Ionized Calcium Digoxin 0.8 L Crossmatch 01/11/21 01/11/21 01/11/21 05:18 05:19 11:28 WBC 17.4 H RBC 3.34 L Hgb 10.2 L Hct 29.7 L MCV MCHC RDW 15.9 H Plt Count Lymph % (Auto) Vance % (Auto) Eos % (Auto) Lymph # (Auto) Vance # (Auto) Eos # (Auto) Seg Neutrophils % Seg Neuts % (Manual) Lymphocytes % (Manual) Monocytes % (Manual) Seg Neutrophils # Seg Neutrophils # Man Lymphocytes # (Manual) Monocytes # (Manual) PT INR ABG pH POC ABG pCO2 POC ABG pO2 ABG pO2 ABG HCO3 ABG O2 Saturation ABG Base Excess ABG Hemoglobin ABG Oxyhemoglobin ABG Sodium ABG Potassium ABG Chloride ABG Glucose Oxyhemoglobin Sodium Potassium Chloride Carbon Dioxide BUN Creatinine Glucose POC Glucose 149 H 178 H Lactic Acid Calcium Phosphorus Magnesium Iron TIBC Transferrin Ferritin Total Bilirubin AST ALT Alkaline Phosphatase Total Protein Albumin Triglycerides Arterial Blood Glucose Arterial Blood Ionized Calcium Digoxin Crossmatch 01/11/21 01/11/21 01/12/21 17:31 23:14 05:18 WBC RBC Hgb Hct MCV MCHC RDW Plt Count Lymph % (Auto) Vance % (Auto) Eos % (Auto) Lymph # (Auto) Vance # (Auto) Eos # (Auto) Seg Neutrophils % Seg Neuts % (Manual) Lymphocytes % (Manual) Monocytes % (Manual) Seg Neutrophils # Seg Neutrophils # Man Lymphocytes # (Manual) Monocytes # (Manual) PT INR ABG pH POC ABG pCO2 POC ABG pO2 ABG pO2 ABG HCO3 ABG O2 Saturation ABG Base Excess ABG Hemoglobin ABG Oxyhemoglobin ABG Sodium ABG Potassium ABG Chloride ABG Glucose Oxyhemoglobin Sodium Potassium Chloride Carbon Dioxide BUN Creatinine Glucose POC Glucose 158 H 145 H 148 H Lactic Acid Calcium Phosphorus Magnesium Iron TIBC Transferrin Ferritin Total Bilirubin AST ALT Alkaline Phosphatase Total Protein Albumin Triglycerides Arterial Blood Glucose Arterial Blood Ionized Calcium Digoxin Crossmatch 01/12/21 01/12/21 01/12/21 06:50 10:45 13:34 WBC RBC Hgb Hct MCV MCHC RDW Plt Count Lymph % (Auto) Vance % (Auto) Eos % (Auto) Lymph # (Auto) Vance # (Auto) Eos # (Auto) Seg Neutrophils % Seg Neuts % (Manual) Lymphocytes % (Manual) Monocytes % (Manual) Seg Neutrophils # Seg Neutrophils # Man Lymphocytes # (Manual) Monocytes # (Manual) PT INR ABG pH POC ABG pCO2 POC ABG pO2 ABG pO2 ABG HCO3 ABG O2 Saturation ABG Base Excess ABG Hemoglobin ABG Oxyhemoglobin ABG Sodium ABG Potassium ABG Chloride ABG Glucose Oxyhemoglobin Sodium Potassium 2.9 L* D Chloride 94.8 L Carbon Dioxide BUN 102 H Creatinine 8.3 H Glucose 139 H POC Glucose 151 H 134 H Lactic Acid Calcium 8.1 L Phosphorus 5.00 H Magnesium Iron TIBC Transferrin Ferritin Total Bilirubin AST ALT Alkaline Phosphatase Total Protein Albumin Triglycerides Arterial Blood Glucose Arterial Blood Ionized Calcium Digoxin Crossmatch 01/12/21 01/12/21 01/13/21 16:59 23:06 03:45 WBC RBC Hgb Hct MCV MCHC RDW Plt Count Lymph % (Auto) Vance % (Auto) Eos % (Auto) Lymph # (Auto) Vance # (Auto) Eos # (Auto) Seg Neutrophils % Seg Neuts % (Manual) Lymphocytes % (Manual) Monocytes % (Manual) Seg Neutrophils # Seg Neutrophils # Man Lymphocytes # (Manual) Monocytes # (Manual) PT INR ABG pH POC ABG pCO2 POC ABG pO2 ABG pO2 ABG HCO3 ABG O2 Saturation ABG Base Excess ABG Hemoglobin ABG Oxyhemoglobin ABG Sodium ABG Potassium ABG Chloride ABG Glucose Oxyhemoglobin Sodium 136 L Potassium 3.4 L Chloride 92.6 L Carbon Dioxide BUN 134 H Creatinine 10.4 H Glucose 126 H POC Glucose 108 H 135 H Lactic Acid Calcium 8.3 L Phosphorus 5.60 H Magnesium 1.50 L Iron TIBC Transferrin Ferritin Total Bilirubin AST ALT Alkaline Phosphatase Total Protein Albumin Triglycerides Arterial Blood Glucose Arterial Blood Ionized Calcium Digoxin Crossmatch 01/13/21 01/13/21 01/13/21 03:45 05:55 11:59 WBC 17.6 H RBC 3.33 L Hgb 10.2 L Hct 29.5 L MCV MCHC 35 H RDW 15.5 H Plt Count Lymph % (Auto) 4.4 L Vance % (Auto) 10.3 H Eos % (Auto) Lymph # (Auto) 0.8 L Vance # (Auto) 1.8 H Eos # (Auto) Seg Neutrophils % 84.2 H Seg Neuts % (Manual) Lymphocytes % (Manual) Monocytes % (Manual) Seg Neutrophils # 14.8 H Seg Neutrophils # Man Lymphocytes # (Manual) Monocytes # (Manual) PT INR ABG pH POC ABG pCO2 POC ABG pO2 ABG pO2 ABG HCO3 ABG O2 Saturation ABG Base Excess ABG Hemoglobin ABG Oxyhemoglobin ABG Sodium ABG Potassium ABG Chloride ABG Glucose Oxyhemoglobin Sodium Potassium Chloride Carbon Dioxide BUN Creatinine Glucose POC Glucose 134 H 141 H Lactic Acid Calcium Phosphorus Magnesium Iron TIBC Transferrin Ferritin Total Bilirubin AST ALT Alkaline Phosphatase Total Protein Albumin Triglycerides Arterial Blood Glucose Arterial Blood Ionized Calcium Digoxin Crossmatch 01/13/21 01/14/21 01/14/21 23:09 05:39 05:57 WBC RBC Hgb Hct MCV MCHC RDW Plt Count Lymph % (Auto) Vance % (Auto) Eos % (Auto) Lymph # (Auto) Vance # (Auto) Eos # (Auto) Seg Neutrophils % Seg Neuts % (Manual) Lymphocytes % (Manual) Monocytes % (Manual) Seg Neutrophils # Seg Neutrophils # Man Lymphocytes # (Manual) Monocytes # (Manual) PT INR ABG pH POC ABG pCO2 POC ABG pO2 ABG pO2 ABG HCO3 ABG O2 Saturation ABG Base Excess ABG Hemoglobin ABG Oxyhemoglobin ABG Sodium ABG Potassium ABG Chloride ABG Glucose Oxyhemoglobin Sodium Potassium Chloride 97.6 L Carbon Dioxide BUN 81 H Creatinine 7.6 H Glucose 193 H POC Glucose 106 H 190 H Lactic Acid Calcium 8.2 L Phosphorus 4.60 H Magnesium Iron TIBC Transferrin Ferritin Total Bilirubin AST ALT Alkaline Phosphatase Total Protein Albumin Triglycerides Arterial Blood Glucose Arterial Blood Ionized Calcium Digoxin Crossmatch 01/14/21 01/14/21 01/14/21 10:00 16:56 16:59 WBC 17.0 H RBC 3.10 L Hgb 9.6 L Hct 27.4 L MCV MCHC 35 H RDW 15.6 H Plt Count Lymph % (Auto) Vance % (Auto) Eos % (Auto) Lymph # (Auto) Vance # (Auto) Eos # (Auto) Seg Neutrophils % Seg Neuts % (Manual) Lymphocytes % (Manual) Monocytes % (Manual) Seg Neutrophils # Seg Neutrophils # Man Lymphocytes # (Manual) Monocytes # (Manual) PT INR ABG pH POC ABG pCO2 POC ABG pO2 ABG pO2 ABG HCO3 ABG O2 Saturation ABG Base Excess ABG Hemoglobin ABG Oxyhemoglobin ABG Sodium ABG Potassium ABG Chloride ABG Glucose Oxyhemoglobin Sodium Potassium Chloride Carbon Dioxide BUN Creatinine Glucose POC Glucose 37 L 34 L Lactic Acid Calcium Phosphorus Magnesium Iron TIBC Transferrin Ferritin Total Bilirubin AST ALT Alkaline Phosphatase Total Protein Albumin Triglycerides Arterial Blood Glucose Arterial Blood Ionized Calcium Digoxin Crossmatch 01/14/21 01/14/21 01/14/21 17:02 18:34 23:17 WBC RBC Hgb Hct MCV MCHC RDW Plt Count Lymph % (Auto) Vance % (Auto) Eos % (Auto) Lymph # (Auto) Vance # (Auto) Eos # (Auto) Seg Neutrophils % Seg Neuts % (Manual) Lymphocytes % (Manual) Monocytes % (Manual) Seg Neutrophils # Seg Neutrophils # Man Lymphocytes # (Manual) Monocytes # (Manual) PT INR ABG pH POC ABG pCO2 POC ABG pO2 ABG pO2 ABG HCO3 ABG O2 Saturation ABG Base Excess ABG Hemoglobin ABG Oxyhemoglobin ABG Sodium ABG Potassium ABG Chloride ABG Glucose Oxyhemoglobin Sodium Potassium Chloride Carbon Dioxide BUN Creatinine Glucose POC Glucose 35 L 143 H 53 L Lactic Acid Calcium Phosphorus Magnesium Iron TIBC Transferrin Ferritin Total Bilirubin AST ALT Alkaline Phosphatase Total Protein Albumin Triglycerides Arterial Blood Glucose Arterial Blood Ionized Calcium Digoxin Crossmatch 01/15/21 01/15/21 01/15/21 00:34 04:00 04:00 WBC 15.9 H RBC 3.02 L Hgb 9.3 L Hct 27.3 L MCV MCHC RDW 15.6 H Plt Count Lymph % (Auto) Vance % (Auto) Eos % (Auto) Lymph # (Auto) Vance # (Auto) Eos # (Auto) Seg Neutrophils % Seg Neuts % (Manual) Lymphocytes % (Manual) Monocytes % (Manual) Seg Neutrophils # Seg Neutrophils # Man Lymphocytes # (Manual) Monocytes # (Manual) PT INR ABG pH POC ABG pCO2 POC ABG pO2 ABG pO2 ABG HCO3 ABG O2 Saturation ABG Base Excess ABG Hemoglobin ABG Oxyhemoglobin ABG Sodium ABG Potassium ABG Chloride ABG Glucose Oxyhemoglobin Sodium 136 L Potassium Chloride 94.3 L Carbon Dioxide BUN 117 H Creatinine 9.9 H Glucose 217 H POC Glucose 181 H Lactic Acid Calcium 8.3 L Phosphorus Magnesium Iron TIBC Transferrin Ferritin Total Bilirubin AST ALT Alkaline Phosphatase Total Protein Albumin Triglycerides Arterial Blood Glucose Arterial Blood Ionized Calcium Digoxin Crossmatch 01/15/21 01/15/21 01/15/21 05:29 11:51 23:13 WBC RBC Hgb Hct MCV MCHC RDW Plt Count Lymph % (Auto) Vance % (Auto) Eos % (Auto) Lymph # (Auto) Vance # (Auto) Eos # (Auto) Seg Neutrophils % Seg Neuts % (Manual) Lymphocytes % (Manual) Monocytes % (Manual) Seg Neutrophils # Seg Neutrophils # Man Lymphocytes # (Manual) Monocytes # (Manual) PT INR ABG pH POC ABG pCO2 POC ABG pO2 ABG pO2 ABG HCO3 ABG O2 Saturation ABG Base Excess ABG Hemoglobin ABG Oxyhemoglobin ABG Sodium ABG Potassium ABG Chloride ABG Glucose Oxyhemoglobin Sodium Potassium Chloride Carbon Dioxide BUN Creatinine Glucose POC Glucose 221 H 62 L 154 H Lactic Acid Calcium Phosphorus Magnesium Iron TIBC Transferrin Ferritin Total Bilirubin AST ALT Alkaline Phosphatase Total Protein Albumin Triglycerides Arterial Blood Glucose Arterial Blood Ionized Calcium Digoxin Crossmatch 01/16/21 01/16/21 01/16/21 05:04 06:44 06:44 WBC 14.8 H RBC 2.76 L Hgb 8.2 L Hct 24.8 L MCV MCHC RDW 15.6 H Plt Count Lymph % (Auto) Vance % (Auto) Eos % (Auto) Lymph # (Auto) Vance # (Auto) Eos # (Auto) Seg Neutrophils % Seg Neuts % (Manual) Lymphocytes % (Manual) Monocytes % (Manual) Seg Neutrophils # Seg Neutrophils # Man Lymphocytes # (Manual) Monocytes # (Manual) PT INR ABG pH POC ABG pCO2 POC ABG pO2 ABG pO2 ABG HCO3 ABG O2 Saturation ABG Base Excess ABG Hemoglobin ABG Oxyhemoglobin ABG Sodium ABG Potassium ABG Chloride ABG Glucose Oxyhemoglobin Sodium 133 L Potassium Chloride 92.3 L Carbon Dioxide 20 L BUN 160 H Creatinine 12.1 H Glucose 177 H POC Glucose 168 H Lactic Acid Calcium 8.1 L Phosphorus 5.50 H Magnesium 2.50 H Iron TIBC Transferrin Ferritin Total Bilirubin AST ALT Alkaline Phosphatase Total Protein Albumin Triglycerides Arterial Blood Glucose Arterial Blood Ionized Calcium Digoxin Crossmatch 01/16/21 01/17/21 01/17/21 23:20 05:14 05:14 WBC 12.7 H RBC 2.75 L Hgb 8.5 L Hct 24.6 L MCV MCHC 35 H RDW 15.4 H Plt Count Lymph % (Auto) Vance % (Auto) Eos % (Auto) Lymph # (Auto) Vance # (Auto) Eos # (Auto) Seg Neutrophils % Seg Neuts % (Manual) Lymphocytes % (Manual) Monocytes % (Manual) Seg Neutrophils # Seg Neutrophils # Man Lymphocytes # (Manual) Monocytes # (Manual) PT INR ABG pH POC ABG pCO2 POC ABG pO2 ABG pO2 ABG HCO3 ABG O2 Saturation ABG Base Excess ABG Hemoglobin ABG Oxyhemoglobin ABG Sodium ABG Potassium ABG Chloride ABG Glucose Oxyhemoglobin Sodium Potassium Chloride 97.9 L Carbon Dioxide BUN 84 H Creatinine 7.8 H Glucose 176 H POC Glucose 153 H Lactic Acid Calcium 8.0 L Phosphorus Magnesium Iron TIBC Transferrin Ferritin Total Bilirubin AST ALT Alkaline Phosphatase Total Protein Albumin Triglycerides Arterial Blood Glucose Arterial Blood Ionized Calcium Digoxin Crossmatch 01/17/21 01/17/21 01/18/21 05:33 11:58 00:07 WBC RBC Hgb Hct MCV MCHC RDW Plt Count Lymph % (Auto) Vance % (Auto) Eos % (Auto) Lymph # (Auto) Vance # (Auto) Eos # (Auto) Seg Neutrophils % Seg Neuts % (Manual) Lymphocytes % (Manual) Monocytes % (Manual) Seg Neutrophils # Seg Neutrophils # Man Lymphocytes # (Manual) Monocytes # (Manual) PT INR ABG pH POC ABG pCO2 POC ABG pO2 ABG pO2 ABG HCO3 ABG O2 Saturation ABG Base Excess ABG Hemoglobin ABG Oxyhemoglobin ABG Sodium ABG Potassium ABG Chloride ABG Glucose Oxyhemoglobin Sodium Potassium Chloride Carbon Dioxide BUN Creatinine Glucose POC Glucose 162 H 64 L 146 H Lactic Acid Calcium Phosphorus Magnesium Iron TIBC Transferrin Ferritin Total Bilirubin AST ALT Alkaline Phosphatase Total Protein Albumin Triglycerides Arterial Blood Glucose Arterial Blood Ionized Calcium Digoxin Crossmatch 01/18/21 01/18/21 01/18/21 04:19 04:19 06:15 WBC 15.6 H RBC 3.00 L Hgb 9.2 L Hct 26.8 L MCV MCHC 35 H RDW 15.6 H Plt Count Lymph % (Auto) Vance % (Auto) Eos % (Auto) Lymph # (Auto) Vance # (Auto) Eos # (Auto) Seg Neutrophils % Seg Neuts % (Manual) Lymphocytes % (Manual) Monocytes % (Manual) Seg Neutrophils # Seg Neutrophils # Man Lymphocytes # (Manual) Monocytes # (Manual) PT INR ABG pH POC ABG pCO2 POC ABG pO2 ABG pO2 ABG HCO3 ABG O2 Saturation ABG Base Excess ABG Hemoglobin ABG Oxyhemoglobin ABG Sodium ABG Potassium ABG Chloride ABG Glucose Oxyhemoglobin Sodium Potassium Chloride 96.2 L Carbon Dioxide BUN 117 H Creatinine 10.0 H Glucose 165 H POC Glucose 189 H Lactic Acid Calcium Phosphorus 4.70 H D Magnesium Iron TIBC Transferrin Ferritin Total Bilirubin AST ALT Alkaline Phosphatase Total Protein Albumin Triglycerides Arterial Blood Glucose Arterial Blood Ionized Calcium Digoxin Crossmatch 01/18/21 01/18/21 01/18/21 11:53 13:44 15:08 WBC RBC Hgb Hct MCV MCHC RDW Plt Count Lymph % (Auto) Vance % (Auto) Eos % (Auto) Lymph # (Auto) Vance # (Auto) Eos # (Auto) Seg Neutrophils % Seg Neuts % (Manual) Lymphocytes % (Manual) Monocytes % (Manual) Seg Neutrophils # Seg Neutrophils # Man Lymphocytes # (Manual) Monocytes # (Manual) PT INR ABG pH POC ABG pCO2 POC ABG pO2 ABG pO2 ABG HCO3 ABG O2 Saturation ABG Base Excess ABG Hemoglobin ABG Oxyhemoglobin ABG Sodium ABG Potassium ABG Chloride ABG Glucose Oxyhemoglobin Sodium Potassium Chloride Carbon Dioxide BUN Creatinine Glucose POC Glucose 69 L 50 L 56 L Lactic Acid Calcium Phosphorus Magnesium Iron TIBC Transferrin Ferritin Total Bilirubin AST ALT Alkaline Phosphatase Total Protein Albumin Triglycerides Arterial Blood Glucose Arterial Blood Ionized Calcium Digoxin Crossmatch 01/18/21 01/19/21 01/19/21 17:50 04:55 08:56 WBC 12.7 H RBC 2.89 L Hgb 8.7 L Hct 25.6 L MCV MCHC RDW 15.5 H Plt Count Lymph % (Auto) Vance % (Auto) Eos % (Auto) Lymph # (Auto) Vance # (Auto) Eos # (Auto) Seg Neutrophils % Seg Neuts % (Manual) Lymphocytes % (Manual) Monocytes % (Manual) Seg Neutrophils # Seg Neutrophils # Man Lymphocytes # (Manual) Monocytes # (Manual) PT INR ABG pH POC ABG pCO2 POC ABG pO2 ABG pO2 ABG HCO3 ABG O2 Saturation ABG Base Excess ABG Hemoglobin ABG Oxyhemoglobin ABG Sodium ABG Potassium ABG Chloride ABG Glucose Oxyhemoglobin Sodium Potassium Chloride Carbon Dioxide BUN Creatinine Glucose POC Glucose 137 H 120 H Lactic Acid Calcium Phosphorus Magnesium Iron TIBC Transferrin Ferritin Total Bilirubin AST ALT Alkaline Phosphatase Total Protein Albumin Triglycerides Arterial Blood Glucose Arterial Blood Ionized Calcium Digoxin Crossmatch 01/19/21 01/19/21 01/19/21 08:56 11:33 17:32 WBC RBC Hgb Hct MCV MCHC RDW Plt Count Lymph % (Auto) Vance % (Auto) Eos % (Auto) Lymph # (Auto) Vance # (Auto) Eos # (Auto) Seg Neutrophils % Seg Neuts % (Manual) Lymphocytes % (Manual) Monocytes % (Manual) Seg Neutrophils # Seg Neutrophils # Man Lymphocytes # (Manual) Monocytes # (Manual) PT INR ABG pH POC ABG pCO2 POC ABG pO2 ABG pO2 ABG HCO3 ABG O2 Saturation ABG Base Excess ABG Hemoglobin ABG Oxyhemoglobin ABG Sodium ABG Potassium ABG Chloride ABG Glucose Oxyhemoglobin Sodium Potassium Chloride Carbon Dioxide BUN 66 H Creatinine 7.7 H Glucose 119 H POC Glucose 160 H 125 H Lactic Acid Calcium 8.3 L Phosphorus Magnesium Iron TIBC Transferrin Ferritin Total Bilirubin AST ALT Alkaline Phosphatase Total Protein Albumin Triglycerides Arterial Blood Glucose Arterial Blood Ionized Calcium Digoxin Crossmatch 01/19/21 01/20/21 01/20/21 23:30 03:35 03:35 WBC 12.0 H RBC 2.62 L Hgb 8.3 L Hct 23.2 L MCV MCHC 36 H RDW Plt Count Lymph % (Auto) Vance % (Auto) Eos % (Auto) Lymph # (Auto) Vance # (Auto) Eos # (Auto) Seg Neutrophils % Seg Neuts % (Manual) Lymphocytes % (Manual) Monocytes % (Manual) Seg Neutrophils # Seg Neutrophils # Man Lymphocytes # (Manual) Monocytes # (Manual) PT INR ABG pH POC ABG pCO2 POC ABG pO2 ABG pO2 ABG HCO3 ABG O2 Saturation ABG Base Excess ABG Hemoglobin ABG Oxyhemoglobin ABG Sodium ABG Potassium ABG Chloride ABG Glucose Oxyhemoglobin Sodium Potassium Chloride Carbon Dioxide BUN 46 H Creatinine 5.9 H Glucose 128 H POC Glucose 127 H Lactic Acid Calcium Phosphorus Magnesium Iron TIBC Transferrin Ferritin Total Bilirubin AST ALT Alkaline Phosphatase Total Protein Albumin Triglycerides Arterial Blood Glucose Arterial Blood Ionized Calcium Digoxin Crossmatch 01/20/21 01/20/21 01/20/21 06:19 11:55 18:00 WBC RBC Hgb Hct MCV MCHC RDW Plt Count Lymph % (Auto) Vance % (Auto) Eos % (Auto) Lymph # (Auto) Vance # (Auto) Eos # (Auto) Seg Neutrophils % Seg Neuts % (Manual) Lymphocytes % (Manual) Monocytes % (Manual) Seg Neutrophils # Seg Neutrophils # Man Lymphocytes # (Manual) Monocytes # (Manual) PT INR ABG pH POC ABG pCO2 POC ABG pO2 ABG pO2 ABG HCO3 ABG O2 Saturation ABG Base Excess ABG Hemoglobin ABG Oxyhemoglobin ABG Sodium ABG Potassium ABG Chloride ABG Glucose Oxyhemoglobin Sodium Potassium Chloride Carbon Dioxide BUN Creatinine Glucose POC Glucose 119 H 128 H 115 H Lactic Acid Calcium Phosphorus Magnesium Iron TIBC Transferrin Ferritin Total Bilirubin AST ALT Alkaline Phosphatase Total Protein Albumin Triglycerides Arterial Blood Glucose Arterial Blood Ionized Calcium Digoxin Crossmatch 01/20/21 01/21/21 01/21/21 23:26 04:39 05:27 WBC RBC Hgb Hct MCV MCHC RDW Plt Count Lymph % (Auto) Vance % (Auto) Eos % (Auto) Lymph # (Auto) Vance # (Auto) Eos # (Auto) Seg Neutrophils % Seg Neuts % (Manual) Lymphocytes % (Manual) Monocytes % (Manual) Seg Neutrophils # Seg Neutrophils # Man Lymphocytes # (Manual) Monocytes # (Manual) PT INR ABG pH POC ABG pCO2 POC ABG pO2 ABG pO2 ABG HCO3 ABG O2 Saturation ABG Base Excess ABG Hemoglobin ABG Oxyhemoglobin ABG Sodium ABG Potassium ABG Chloride ABG Glucose Oxyhemoglobin Sodium Potassium Chloride Carbon Dioxide BUN 37 H Creatinine 5.3 H Glucose 109 H POC Glucose 108 H 107 H Lactic Acid Calcium Phosphorus 2.10 L Magnesium 1.50 L Iron TIBC Transferrin Ferritin Total Bilirubin AST ALT Alkaline Phosphatase 143 H Total Protein 6.1 L Albumin 3.0 L Triglycerides Arterial Blood Glucose Arterial Blood Ionized Calcium Digoxin Crossmatch 01/21/21 01/21/21 01/22/21 11:35 17:53 00:20 WBC RBC Hgb Hct MCV MCHC RDW Plt Count Lymph % (Auto) Vance % (Auto) Eos % (Auto) Lymph # (Auto) Vance # (Auto) Eos # (Auto) Seg Neutrophils % Seg Neuts % (Manual) Lymphocytes % (Manual) Monocytes % (Manual) Seg Neutrophils # Seg Neutrophils # Man Lymphocytes # (Manual) Monocytes # (Manual) PT INR ABG pH POC ABG pCO2 POC ABG pO2 ABG pO2 ABG HCO3 ABG O2 Saturation ABG Base Excess ABG Hemoglobin ABG Oxyhemoglobin ABG Sodium ABG Potassium ABG Chloride ABG Glucose Oxyhemoglobin Sodium Potassium Chloride Carbon Dioxide BUN Creatinine Glucose POC Glucose 133 H 124 H 122 H Lactic Acid Calcium Phosphorus Magnesium Iron TIBC Transferrin Ferritin Total Bilirubin AST ALT Alkaline Phosphatase Total Protein Albumin Triglycerides Arterial Blood Glucose Arterial Blood Ionized Calcium Digoxin Crossmatch 01/22/21 01/22/21 01/22/21 04:00 06:09 11:36 WBC RBC Hgb Hct MCV MCHC RDW Plt Count Lymph % (Auto) Vance % (Auto) Eos % (Auto) Lymph # (Auto) Vance # (Auto) Eos # (Auto) Seg Neutrophils % Seg Neuts % (Manual) Lymphocytes % (Manual) Monocytes % (Manual) Seg Neutrophils # Seg Neutrophils # Man Lymphocytes # (Manual) Monocytes # (Manual) PT INR ABG pH POC ABG pCO2 POC ABG pO2 ABG pO2 ABG HCO3 ABG O2 Saturation ABG Base Excess ABG Hemoglobin ABG Oxyhemoglobin ABG Sodium ABG Potassium ABG Chloride ABG Glucose Oxyhemoglobin Sodium Potassium Chloride Carbon Dioxide BUN 65 H Creatinine 8.2 H D Glucose 111 H POC Glucose 122 H 132 H Lactic Acid Calcium Phosphorus Magnesium Iron TIBC Transferrin Ferritin Total Bilirubin AST ALT Alkaline Phosphatase Total Protein Albumin Triglycerides Arterial Blood Glucose Arterial Blood Ionized Calcium Digoxin Crossmatch 01/22/21 01/22/21 01/23/21 17:17 23:18 05:29 WBC RBC Hgb Hct MCV MCHC RDW Plt Count Lymph % (Auto) Vance % (Auto) Eos % (Auto) Lymph # (Auto) Vance # (Auto) Eos # (Auto) Seg Neutrophils % Seg Neuts % (Manual) Lymphocytes % (Manual) Monocytes % (Manual) Seg Neutrophils # Seg Neutrophils # Man Lymphocytes # (Manual) Monocytes # (Manual) PT INR ABG pH POC ABG pCO2 POC ABG pO2 ABG pO2 ABG HCO3 ABG O2 Saturation ABG Base Excess ABG Hemoglobin ABG Oxyhemoglobin ABG Sodium ABG Potassium ABG Chloride ABG Glucose Oxyhemoglobin Sodium Potassium Chloride Carbon Dioxide BUN Creatinine Glucose POC Glucose 135 H 128 H 129 H Lactic Acid Calcium Phosphorus Magnesium Iron TIBC Transferrin Ferritin Total Bilirubin AST ALT Alkaline Phosphatase Total Protein Albumin Triglycerides Arterial Blood Glucose Arterial Blood Ionized Calcium Digoxin Crossmatch 01/23/21 01/23/21 01/23/21 05:45 11:28 16:39 WBC RBC Hgb Hct MCV MCHC RDW Plt Count Lymph % (Auto) Vance % (Auto) Eos % (Auto) Lymph # (Auto) Vance # (Auto) Eos # (Auto) Seg Neutrophils % Seg Neuts % (Manual) Lymphocytes % (Manual) Monocytes % (Manual) Seg Neutrophils # Seg Neutrophils # Man Lymphocytes # (Manual) Monocytes # (Manual) PT INR ABG pH POC ABG pCO2 POC ABG pO2 ABG pO2 ABG HCO3 ABG O2 Saturation ABG Base Excess ABG Hemoglobin ABG Oxyhemoglobin ABG Sodium ABG Potassium ABG Chloride ABG Glucose Oxyhemoglobin Sodium Potassium Chloride Carbon Dioxide BUN 96 H Creatinine 10.8 H Glucose 124 H POC Glucose 160 H 116 H Lactic Acid Calcium Phosphorus Magnesium 2.50 H Iron TIBC Transferrin Ferritin Total Bilirubin AST ALT Alkaline Phosphatase Total Protein Albumin Triglycerides Arterial Blood Glucose Arterial Blood Ionized Calcium Digoxin Crossmatch 01/24/21 01/24/21 01/24/21 00:02 04:45 05:01 WBC RBC Hgb Hct MCV MCHC RDW Plt Count Lymph % (Auto) Vance % (Auto) Eos % (Auto) Lymph # (Auto) Vance # (Auto) Eos # (Auto) Seg Neutrophils % Seg Neuts % (Manual) Lymphocytes % (Manual) Monocytes % (Manual) Seg Neutrophils # Seg Neutrophils # Man Lymphocytes # (Manual) Monocytes # (Manual) PT INR ABG pH POC ABG pCO2 POC ABG pO2 ABG pO2 ABG HCO3 ABG O2 Saturation ABG Base Excess ABG Hemoglobin ABG Oxyhemoglobin ABG Sodium ABG Potassium ABG Chloride ABG Glucose Oxyhemoglobin Sodium Potassium 3.5 L Chloride Carbon Dioxide BUN 56 H Creatinine 7.7 H Glucose 102 H POC Glucose 120 H 108 H Lactic Acid Calcium Phosphorus Magnesium Iron TIBC Transferrin Ferritin Total Bilirubin AST ALT Alkaline Phosphatase Total Protein Albumin Triglycerides Arterial Blood Glucose Arterial Blood Ionized Calcium Digoxin Crossmatch 01/24/21 01/24/21 01/24/21 12:03 17:07 23:55 WBC RBC Hgb Hct MCV MCHC RDW Plt Count Lymph % (Auto) Vance % (Auto) Eos % (Auto) Lymph # (Auto) Vance # (Auto) Eos # (Auto) Seg Neutrophils % Seg Neuts % (Manual) Lymphocytes % (Manual) Monocytes % (Manual) Seg Neutrophils # Seg Neutrophils # Man Lymphocytes # (Manual) Monocytes # (Manual) PT INR ABG pH POC ABG pCO2 POC ABG pO2 ABG pO2 ABG HCO3 ABG O2 Saturation ABG Base Excess ABG Hemoglobin ABG Oxyhemoglobin ABG Sodium ABG Potassium ABG Chloride ABG Glucose Oxyhemoglobin Sodium Potassium Chloride Carbon Dioxide BUN Creatinine Glucose POC Glucose 136 H 122 H 112 H Lactic Acid Calcium Phosphorus Magnesium Iron TIBC Transferrin Ferritin Total Bilirubin AST ALT Alkaline Phosphatase Total Protein Albumin Triglycerides Arterial Blood Glucose Arterial Blood Ionized Calcium Digoxin Crossmatch 01/25/21 01/25/21 01/25/21 05:15 06:00 07:47 WBC RBC Hgb Hct MCV MCHC RDW Plt Count Lymph % (Auto) Vance % (Auto) Eos % (Auto) Lymph # (Auto) Vance # (Auto) Eos # (Auto) Seg Neutrophils % Seg Neuts % (Manual) Lymphocytes % (Manual) Monocytes % (Manual) Seg Neutrophils # Seg Neutrophils # Man Lymphocytes # (Manual) Monocytes # (Manual) PT INR ABG pH POC ABG pCO2 POC ABG pO2 ABG pO2 ABG HCO3 ABG O2 Saturation ABG Base Excess ABG Hemoglobin ABG Oxyhemoglobin ABG Sodium ABG Potassium ABG Chloride ABG Glucose Oxyhemoglobin Sodium 116 L* D Potassium Chloride 79.1 L Carbon Dioxide 17 L D BUN 72 H Creatinine 7.4 H Glucose 2242 H* POC Glucose 117 H 138 H Lactic Acid Calcium 6.7 L D Phosphorus Magnesium Iron TIBC Transferrin Ferritin Total Bilirubin AST ALT Alkaline Phosphatase Total Protein Albumin Triglycerides Arterial Blood Glucose Arterial Blood Ionized Calcium Digoxin Crossmatch 01/25/21 01/25/21 01/25/21 08:35 11:49 18:42 WBC RBC Hgb Hct MCV MCHC RDW Plt Count Lymph % (Auto) Vance % (Auto) Eos % (Auto) Lymph # (Auto) Vance # (Auto) Eos # (Auto) Seg Neutrophils % Seg Neuts % (Manual) Lymphocytes % (Manual) Monocytes % (Manual) Seg Neutrophils # Seg Neutrophils # Man Lymphocytes # (Manual) Monocytes # (Manual) PT INR ABG pH POC ABG pCO2 POC ABG pO2 ABG pO2 ABG HCO3 ABG O2 Saturation ABG Base Excess ABG Hemoglobin ABG Oxyhemoglobin ABG Sodium ABG Potassium ABG Chloride ABG Glucose Oxyhemoglobin Sodium Potassium Chloride 97.0 L Carbon Dioxide BUN 92 H Creatinine 11.0 H Glucose 125 H POC Glucose 130 H 122 H Lactic Acid Calcium Phosphorus Magnesium Iron TIBC Transferrin Ferritin Total Bilirubin AST ALT Alkaline Phosphatase Total Protein Albumin Triglycerides Arterial Blood Glucose Arterial Blood Ionized Calcium Digoxin Crossmatch 01/25/21 01/26/21 01/26/21 23:37 04:19 05:48 WBC RBC Hgb Hct MCV MCHC RDW Plt Count Lymph % (Auto) Vance % (Auto) Eos % (Auto) Lymph # (Auto) Vance # (Auto) Eos # (Auto) Seg Neutrophils % Seg Neuts % (Manual) Lymphocytes % (Manual) Monocytes % (Manual) Seg Neutrophils # Seg Neutrophils # Man Lymphocytes # (Manual) Monocytes # (Manual) PT INR ABG pH POC ABG pCO2 POC ABG pO2 ABG pO2 ABG HCO3 ABG O2 Saturation ABG Base Excess ABG Hemoglobin ABG Oxyhemoglobin ABG Sodium ABG Potassium ABG Chloride ABG Glucose Oxyhemoglobin Sodium Potassium Chloride Carbon Dioxide BUN 49 H Creatinine 7.1 H Glucose POC Glucose 144 H 125 H Lactic Acid Calcium Phosphorus Magnesium 1.50 L Iron TIBC Transferrin Ferritin Total Bilirubin AST ALT Alkaline Phosphatase Total Protein Albumin Triglycerides Arterial Blood Glucose Arterial Blood Ionized Calcium Digoxin Crossmatch 01/26/21 01/26/21 01/27/21 11:16 18:35 00:01 WBC RBC Hgb Hct MCV MCHC RDW Plt Count Lymph % (Auto) Vance % (Auto) Eos % (Auto) Lymph # (Auto) Vance # (Auto) Eos # (Auto) Seg Neutrophils % Seg Neuts % (Manual) Lymphocytes % (Manual) Monocytes % (Manual) Seg Neutrophils # Seg Neutrophils # Man Lymphocytes # (Manual) Monocytes # (Manual) PT INR ABG pH POC ABG pCO2 POC ABG pO2 ABG pO2 ABG HCO3 ABG O2 Saturation ABG Base Excess ABG Hemoglobin ABG Oxyhemoglobin ABG Sodium ABG Potassium ABG Chloride ABG Glucose Oxyhemoglobin Sodium Potassium Chloride Carbon Dioxide BUN Creatinine Glucose POC Glucose 122 H 127 H 130 H Lactic Acid Calcium Phosphorus Magnesium Iron TIBC Transferrin Ferritin Total Bilirubin AST ALT Alkaline Phosphatase Total Protein Albumin Triglycerides Arterial Blood Glucose Arterial Blood Ionized Calcium Digoxin Crossmatch 01/27/21 01/27/21 01/27/21 04:19 04:19 05:25 WBC 12.4 H RBC 2.79 L Hgb 8.6 L Hct 25.1 L MCV MCHC RDW 16.1 H Plt Count Lymph % (Auto) 7.5 L Vance % (Auto) 9.3 H Eos % (Auto) 4.8 H Lymph # (Auto) 0.9 L Vance # (Auto) 1.1 H Eos # (Auto) 0.6 H Seg Neutrophils % 78.0 H Seg Neuts % (Manual) Lymphocytes % (Manual) Monocytes % (Manual) Seg Neutrophils # 9.7 H Seg Neutrophils # Man Lymphocytes # (Manual) Monocytes # (Manual) PT INR ABG pH POC ABG pCO2 POC ABG pO2 ABG pO2 ABG HCO3 ABG O2 Saturation ABG Base Excess ABG Hemoglobin ABG Oxyhemoglobin ABG Sodium ABG Potassium ABG Chloride ABG Glucose Oxyhemoglobin Sodium Potassium Chloride 97.9 L Carbon Dioxide BUN 76 H Creatinine 9.9 H Glucose 111 H POC Glucose 129 H Lactic Acid Calcium Phosphorus Magnesium Iron TIBC Transferrin Ferritin Total Bilirubin AST ALT Alkaline Phosphatase Total Protein Albumin Triglycerides Arterial Blood Glucose Arterial Blood Ionized Calcium Digoxin Crossmatch 01/27/21 01/27/21 01/27/21 11:30 17:08 23:28 WBC RBC Hgb Hct MCV MCHC RDW Plt Count Lymph % (Auto) Vance % (Auto) Eos % (Auto) Lymph # (Auto) Vance # (Auto) Eos # (Auto) Seg Neutrophils % Seg Neuts % (Manual) Lymphocytes % (Manual) Monocytes % (Manual) Seg Neutrophils # Seg Neutrophils # Man Lymphocytes # (Manual) Monocytes # (Manual) PT INR ABG pH POC ABG pCO2 POC ABG pO2 ABG pO2 ABG HCO3 ABG O2 Saturation ABG Base Excess ABG Hemoglobin ABG Oxyhemoglobin ABG Sodium ABG Potassium ABG Chloride ABG Glucose Oxyhemoglobin Sodium Potassium Chloride Carbon Dioxide BUN Creatinine Glucose POC Glucose 128 H 158 H 114 H Lactic Acid Calcium Phosphorus Magnesium Iron TIBC Transferrin Ferritin Total Bilirubin AST ALT Alkaline Phosphatase Total Protein Albumin Triglycerides Arterial Blood Glucose Arterial Blood Ionized Calcium Digoxin Crossmatch 01/28/21 01/28/21 01/28/21 05:17 11:27 18:01 WBC RBC Hgb Hct MCV MCHC RDW Plt Count Lymph % (Auto) Vance % (Auto) Eos % (Auto) Lymph # (Auto) Vance # (Auto) Eos # (Auto) Seg Neutrophils % Seg Neuts % (Manual) Lymphocytes % (Manual) Monocytes % (Manual) Seg Neutrophils # Seg Neutrophils # Man Lymphocytes # (Manual) Monocytes # (Manual) PT INR ABG pH POC ABG pCO2 POC ABG pO2 ABG pO2 ABG HCO3 ABG O2 Saturation ABG Base Excess ABG Hemoglobin ABG Oxyhemoglobin ABG Sodium ABG Potassium ABG Chloride ABG Glucose Oxyhemoglobin Sodium Potassium Chloride Carbon Dioxide BUN Creatinine Glucose POC Glucose 113 H 134 H 111 H Lactic Acid Calcium Phosphorus Magnesium Iron TIBC Transferrin Ferritin Total Bilirubin AST ALT Alkaline Phosphatase Total Protein Albumin Triglycerides Arterial Blood Glucose Arterial Blood Ionized Calcium Digoxin Crossmatch 01/29/21 01/29/21 01/29/21 04:54 06:45 11:10 WBC RBC Hgb Hct MCV MCHC RDW Plt Count Lymph % (Auto) Vance % (Auto) Eos % (Auto) Lymph # (Auto) Vance # (Auto) Eos # (Auto) Seg Neutrophils % Seg Neuts % (Manual) Lymphocytes % (Manual) Monocytes % (Manual) Seg Neutrophils # Seg Neutrophils # Man Lymphocytes # (Manual) Monocytes # (Manual) PT INR ABG pH POC ABG pCO2 POC ABG pO2 ABG pO2 ABG HCO3 ABG O2 Saturation ABG Base Excess ABG Hemoglobin ABG Oxyhemoglobin ABG Sodium ABG Potassium ABG Chloride ABG Glucose Oxyhemoglobin Sodium Potassium 3.4 L Chloride Carbon Dioxide BUN 51 H Creatinine 6.9 H Glucose 120 H POC Glucose 111 H 106 H Lactic Acid Calcium Phosphorus 2.10 L Magnesium Iron TIBC Transferrin Ferritin Total Bilirubin AST ALT Alkaline Phosphatase 182 H Total Protein 6.0 L Albumin 2.9 L Triglycerides Arterial Blood Glucose Arterial Blood Ionized Calcium Digoxin Crossmatch 01/29/21 01/30/21 01/30/21 16:47 04:15 06:55 WBC RBC Hgb Hct MCV MCHC RDW Plt Count Lymph % (Auto) Vance % (Auto) Eos % (Auto) Lymph # (Auto) Vance # (Auto) Eos # (Auto) Seg Neutrophils % Seg Neuts % (Manual) Lymphocytes % (Manual) Monocytes % (Manual) Seg Neutrophils # Seg Neutrophils # Man Lymphocytes # (Manual) Monocytes # (Manual) PT INR ABG pH POC ABG pCO2 POC ABG pO2 ABG pO2 ABG HCO3 ABG O2 Saturation ABG Base Excess ABG Hemoglobin ABG Oxyhemoglobin ABG Sodium ABG Potassium ABG Chloride ABG Glucose Oxyhemoglobin Sodium Potassium Chloride Carbon Dioxide BUN 73 H Creatinine 9.2 H Glucose 119 H POC Glucose 110 H 126 H Lactic Acid Calcium Phosphorus 4.70 H D Magnesium Iron TIBC Transferrin Ferritin Total Bilirubin AST ALT Alkaline Phosphatase Total Protein Albumin Triglycerides Arterial Blood Glucose Arterial Blood Ionized Calcium Digoxin Crossmatch 01/30/21 01/31/21 01/31/21 18:25 00:51 07:15 WBC RBC Hgb Hct MCV MCHC RDW Plt Count Lymph % (Auto) Vance % (Auto) Eos % (Auto) Lymph # (Auto) Vance # (Auto) Eos # (Auto) Seg Neutrophils % Seg Neuts % (Manual) Lymphocytes % (Manual) Monocytes % (Manual) Seg Neutrophils # Seg Neutrophils # Man Lymphocytes # (Manual) Monocytes # (Manual) PT INR ABG pH POC ABG pCO2 POC ABG pO2 ABG pO2 ABG HCO3 ABG O2 Saturation ABG Base Excess ABG Hemoglobin ABG Oxyhemoglobin ABG Sodium ABG Potassium ABG Chloride ABG Glucose Oxyhemoglobin Sodium Potassium Chloride Carbon Dioxide BUN Creatinine Glucose POC Glucose 117 H 134 H 134 H Lactic Acid Calcium Phosphorus Magnesium Iron TIBC Transferrin Ferritin Total Bilirubin AST ALT Alkaline Phosphatase Total Protein Albumin Triglycerides Arterial Blood Glucose Arterial Blood Ionized Calcium Digoxin Crossmatch 01/31/21 01/31/21 02/01/21 11:45 23:15 05:51 WBC RBC Hgb Hct MCV MCHC RDW Plt Count Lymph % (Auto) Vance % (Auto) Eos % (Auto) Lymph # (Auto) Vance # (Auto) Eos # (Auto) Seg Neutrophils % Seg Neuts % (Manual) Lymphocytes % (Manual) Monocytes % (Manual) Seg Neutrophils # Seg Neutrophils # Man Lymphocytes # (Manual) Monocytes # (Manual) PT INR ABG pH POC ABG pCO2 POC ABG pO2 ABG pO2 ABG HCO3 ABG O2 Saturation ABG Base Excess ABG Hemoglobin ABG Oxyhemoglobin ABG Sodium ABG Potassium ABG Chloride ABG Glucose Oxyhemoglobin Sodium Potassium Chloride Carbon Dioxide BUN Creatinine Glucose POC Glucose 119 H 120 H 125 H Lactic Acid Calcium Phosphorus Magnesium Iron TIBC Transferrin Ferritin Total Bilirubin AST ALT Alkaline Phosphatase Total Protein Albumin Triglycerides Arterial Blood Glucose Arterial Blood Ionized Calcium Digoxin Crossmatch 02/01/21 02/02/21 02/02/21 22:05 03:25 06:16 WBC RBC Hgb Hct MCV MCHC RDW Plt Count Lymph % (Auto) Vance % (Auto) Eos % (Auto) Lymph # (Auto) Vance # (Auto) Eos # (Auto) Seg Neutrophils % Seg Neuts % (Manual) Lymphocytes % (Manual) Monocytes % (Manual) Seg Neutrophils # Seg Neutrophils # Man Lymphocytes # (Manual) Monocytes # (Manual) PT INR ABG pH POC ABG pCO2 POC ABG pO2 ABG pO2 ABG HCO3 ABG O2 Saturation ABG Base Excess ABG Hemoglobin ABG Oxyhemoglobin ABG Sodium ABG Potassium ABG Chloride ABG Glucose Oxyhemoglobin Sodium Potassium 3.3 L Chloride Carbon Dioxide BUN 38 H Creatinine 5.8 H Glucose 115 H POC Glucose 118 H 130 H Lactic Acid Calcium Phosphorus 1.80 L Magnesium 1.60 L Iron TIBC Transferrin Ferritin Total Bilirubin AST ALT Alkaline Phosphatase Total Protein Albumin Triglycerides Arterial Blood Glucose Arterial Blood Ionized Calcium Digoxin Crossmatch 02/02/21 02/02/21 02/03/21 17:29 21:53 04:50 WBC RBC Hgb Hct MCV MCHC RDW Plt Count Lymph % (Auto) Vance % (Auto) Eos % (Auto) Lymph # (Auto) Vance # (Auto) Eos # (Auto) Seg Neutrophils % Seg Neuts % (Manual) Lymphocytes % (Manual) Monocytes % (Manual) Seg Neutrophils # Seg Neutrophils # Man Lymphocytes # (Manual) Monocytes # (Manual) PT INR ABG pH POC ABG pCO2 POC ABG pO2 ABG pO2 ABG HCO3 ABG O2 Saturation ABG Base Excess ABG Hemoglobin ABG Oxyhemoglobin ABG Sodium ABG Potassium ABG Chloride ABG Glucose Oxyhemoglobin Sodium Potassium Chloride Carbon Dioxide BUN Creatinine Glucose POC Glucose 115 H 120 H Lactic Acid Calcium Phosphorus Magnesium 1.60 L Iron TIBC Transferrin Ferritin Total Bilirubin AST ALT Alkaline Phosphatase Total Protein Albumin Triglycerides Arterial Blood Glucose Arterial Blood Ionized Calcium Digoxin Crossmatch 02/03/21 02/03/21 02/03/21 06:12 18:25 23:47 WBC RBC Hgb Hct MCV MCHC RDW Plt Count Lymph % (Auto) Vance % (Auto) Eos % (Auto) Lymph # (Auto) Vance # (Auto) Eos # (Auto) Seg Neutrophils % Seg Neuts % (Manual) Lymphocytes % (Manual) Monocytes % (Manual) Seg Neutrophils # Seg Neutrophils # Man Lymphocytes # (Manual) Monocytes # (Manual) PT INR ABG pH POC ABG pCO2 POC ABG pO2 ABG pO2 ABG HCO3 ABG O2 Saturation ABG Base Excess ABG Hemoglobin ABG Oxyhemoglobin ABG Sodium ABG Potassium ABG Chloride ABG Glucose Oxyhemoglobin Sodium Potassium Chloride Carbon Dioxide BUN Creatinine Glucose POC Glucose 112 H 112 H 131 H Lactic Acid Calcium Phosphorus Magnesium Iron TIBC Transferrin Ferritin Total Bilirubin AST ALT Alkaline Phosphatase Total Protein Albumin Triglycerides Arterial Blood Glucose Arterial Blood Ionized Calcium Digoxin Crossmatch 02/04/21 02/04/21 02/04/21 05:40 09:37 12:03 WBC RBC Hgb Hct MCV MCHC RDW Plt Count Lymph % (Auto) Vance % (Auto) Eos % (Auto) Lymph # (Auto) Vance # (Auto) Eos # (Auto) Seg Neutrophils % Seg Neuts % (Manual) Lymphocytes % (Manual) Monocytes % (Manual) Seg Neutrophils # Seg Neutrophils # Man Lymphocytes # (Manual) Monocytes # (Manual) PT INR ABG pH POC ABG pCO2 POC ABG pO2 ABG pO2 ABG HCO3 ABG O2 Saturation ABG Base Excess ABG Hemoglobin ABG Oxyhemoglobin ABG Sodium ABG Potassium ABG Chloride ABG Glucose Oxyhemoglobin Sodium 131 L D 135 L Potassium 3.0 L 3.1 L Chloride 93.4 L 96.7 L Carbon Dioxide BUN 46 H 52 H Creatinine 6.5 H 7.3 H Glucose 363 H 128 H POC Glucose 129 H Lactic Acid Calcium Phosphorus 2.40 L Magnesium 1.50 L 1.60 L Iron TIBC Transferrin Ferritin Total Bilirubin AST ALT Alkaline Phosphatase Total Protein Albumin Triglycerides Arterial Blood Glucose Arterial Blood Ionized Calcium Digoxin Crossmatch 02/04/21 02/04/21 02/05/21 17:25 21:38 05:19 WBC RBC Hgb Hct MCV MCHC RDW Plt Count Lymph % (Auto) Vance % (Auto) Eos % (Auto) Lymph # (Auto) Vance # (Auto) Eos # (Auto) Seg Neutrophils % Seg Neuts % (Manual) Lymphocytes % (Manual) Monocytes % (Manual) Seg Neutrophils # Seg Neutrophils # Man Lymphocytes # (Manual) Monocytes # (Manual) PT INR ABG pH POC ABG pCO2 POC ABG pO2 ABG pO2 ABG HCO3 ABG O2 Saturation ABG Base Excess ABG Hemoglobin ABG Oxyhemoglobin ABG Sodium ABG Potassium ABG Chloride ABG Glucose Oxyhemoglobin Sodium Potassium Chloride Carbon Dioxide BUN Creatinine Glucose POC Glucose 132 H 108 H 116 H Lactic Acid Calcium Phosphorus Magnesium Iron TIBC Transferrin Ferritin Total Bilirubin AST ALT Alkaline Phosphatase Total Protein Albumin Triglycerides Arterial Blood Glucose Arterial Blood Ionized Calcium Digoxin Crossmatch 02/05/21 02/05/21 02/05/21 06:30 11:25 16:20 WBC RBC Hgb Hct MCV MCHC RDW Plt Count Lymph % (Auto) Vance % (Auto) Eos % (Auto) Lymph # (Auto) Vance # (Auto) Eos # (Auto) Seg Neutrophils % Seg Neuts % (Manual) Lymphocytes % (Manual) Monocytes % (Manual) Seg Neutrophils # Seg Neutrophils # Man Lymphocytes # (Manual) Monocytes # (Manual) PT INR ABG pH POC ABG pCO2 POC ABG pO2 ABG pO2 ABG HCO3 ABG O2 Saturation ABG Base Excess ABG Hemoglobin ABG Oxyhemoglobin ABG Sodium ABG Potassium ABG Chloride ABG Glucose Oxyhemoglobin Sodium Potassium 3.2 L Chloride 96.5 L Carbon Dioxide BUN 76 H Creatinine 9.6 H Glucose 112 H POC Glucose 118 H 123 H Lactic Acid Calcium Phosphorus Magnesium 1.50 L Iron TIBC Transferrin Ferritin Total Bilirubin AST ALT Alkaline Phosphatase 177 H Total Protein 6.0 L Albumin 2.9 L Triglycerides Arterial Blood Glucose Arterial Blood Ionized Calcium Digoxin Crossmatch 02/06/21 02/06/21 02/06/21 05:42 06:42 08:18 WBC RBC Hgb Hct MCV MCHC RDW Plt Count Lymph % (Auto) Vance % (Auto) Eos % (Auto) Lymph # (Auto) Vance # (Auto) Eos # (Auto) Seg Neutrophils % Seg Neuts % (Manual) Lymphocytes % (Manual) Monocytes % (Manual) Seg Neutrophils # Seg Neutrophils # Man Lymphocytes # (Manual) Monocytes # (Manual) PT INR ABG pH POC ABG pCO2 POC ABG pO2 ABG pO2 ABG HCO3 ABG O2 Saturation ABG Base Excess ABG Hemoglobin ABG Oxyhemoglobin ABG Sodium ABG Potassium ABG Chloride ABG Glucose Oxyhemoglobin Sodium 133 L Potassium Chloride 92.7 L Carbon Dioxide 19 L BUN 100 H Creatinine 11.9 H Glucose 114 H POC Glucose 118 H 114 H Lactic Acid Calcium Phosphorus 4.70 H Magnesium 1.60 L Iron TIBC Transferrin Ferritin Total Bilirubin AST ALT Alkaline Phosphatase Total Protein Albumin Triglycerides Arterial Blood Glucose Arterial Blood Ionized Calcium Digoxin Crossmatch 02/06/21 02/07/21 02/07/21 23:22 04:35 04:35 WBC RBC 2.52 L Hgb 8.0 L Hct 22.5 L MCV MCHC 36 H RDW 16.7 H Plt Count Lymph % (Auto) 12.7 L Vance % (Auto) 10.2 H Eos % (Auto) 5.0 H Lymph # (Auto) Vance # (Auto) 1.0 H Eos # (Auto) 0.5 H Seg Neutrophils % 71.6 H Seg Neuts % (Manual) Lymphocytes % (Manual) Monocytes % (Manual) Seg Neutrophils # Seg Neutrophils # Man Lymphocytes # (Manual) Monocytes # (Manual) PT INR ABG pH POC ABG pCO2 POC ABG pO2 ABG pO2 ABG HCO3 ABG O2 Saturation ABG Base Excess ABG Hemoglobin ABG Oxyhemoglobin ABG Sodium ABG Potassium ABG Chloride ABG Glucose Oxyhemoglobin Sodium 135 L Potassium 3.4 L Chloride 95.5 L Carbon Dioxide BUN 59 H Creatinine 8.5 H Glucose POC Glucose 117 H Lactic Acid Calcium Phosphorus Magnesium Iron TIBC Transferrin Ferritin Total Bilirubin AST ALT Alkaline Phosphatase Total Protein Albumin Triglycerides Arterial Blood Glucose Arterial Blood Ionized Calcium Digoxin Crossmatch 02/07/21 02/07/21 02/07/21 04:35 11:31 22:49 WBC RBC Hgb Hct MCV MCHC RDW Plt Count Lymph % (Auto) Vance % (Auto) Eos % (Auto) Lymph # (Auto) Vance # (Auto) Eos # (Auto) Seg Neutrophils % Seg Neuts % (Manual) Lymphocytes % (Manual) Monocytes % (Manual) Seg Neutrophils # Seg Neutrophils # Man Lymphocytes # (Manual) Monocytes # (Manual) PT INR ABG pH POC ABG pCO2 POC ABG pO2 ABG pO2 ABG HCO3 ABG O2 Saturation ABG Base Excess ABG Hemoglobin ABG Oxyhemoglobin ABG Sodium ABG Potassium ABG Chloride ABG Glucose Oxyhemoglobin Sodium Potassium Chloride Carbon Dioxide BUN Creatinine Glucose POC Glucose 117 H 122 H Lactic Acid Calcium Phosphorus Magnesium 1.60 L Iron TIBC Transferrin Ferritin Total Bilirubin AST ALT Alkaline Phosphatase Total Protein Albumin Triglycerides Arterial Blood Glucose Arterial Blood Ionized Calcium Digoxin Crossmatch 02/08/21 02/08/21 02/08/21 04:56 06:45 22:38 WBC RBC Hgb Hct MCV MCHC RDW Plt Count Lymph % (Auto) Vance % (Auto) Eos % (Auto) Lymph # (Auto) Vance # (Auto) Eos # (Auto) Seg Neutrophils % Seg Neuts % (Manual) Lymphocytes % (Manual) Monocytes % (Manual) Seg Neutrophils # Seg Neutrophils # Man Lymphocytes # (Manual) Monocytes # (Manual) PT INR ABG pH POC ABG pCO2 POC ABG pO2 ABG pO2 ABG HCO3 ABG O2 Saturation ABG Base Excess ABG Hemoglobin ABG Oxyhemoglobin ABG Sodium ABG Potassium ABG Chloride ABG Glucose Oxyhemoglobin Sodium 134 L Potassium 3.5 L Chloride 94.2 L Carbon Dioxide BUN 78 H Creatinine 11.4 H Glucose 101 H POC Glucose 113 H 128 H Lactic Acid Calcium Phosphorus Magnesium Iron TIBC Transferrin Ferritin Total Bilirubin AST ALT Alkaline Phosphatase Total Protein Albumin Triglycerides Arterial Blood Glucose Arterial Blood Ionized Calcium Digoxin Crossmatch 02/09/21 02/09/21 02/09/21 04:43 07:44 11:33 WBC RBC Hgb Hct MCV MCHC RDW Plt Count Lymph % (Auto) Vance % (Auto) Eos % (Auto) Lymph # (Auto) Vance # (Auto) Eos # (Auto) Seg Neutrophils % Seg Neuts % (Manual) Lymphocytes % (Manual) Monocytes % (Manual) Seg Neutrophils # Seg Neutrophils # Man Lymphocytes # (Manual) Monocytes # (Manual) PT INR ABG pH POC ABG pCO2 POC ABG pO2 ABG pO2 ABG HCO3 ABG O2 Saturation ABG Base Excess ABG Hemoglobin ABG Oxyhemoglobin ABG Sodium ABG Potassium ABG Chloride ABG Glucose Oxyhemoglobin Sodium 135 L Potassium 3.2 L Chloride 93.0 L Carbon Dioxide BUN 42 H Creatinine 8.1 H Glucose 128 H POC Glucose 115 H 127 H Lactic Acid Calcium Phosphorus 2.20 L D Magnesium Iron TIBC Transferrin Ferritin Total Bilirubin AST ALT Alkaline Phosphatase Total Protein Albumin Triglycerides Arterial Blood Glucose Arterial Blood Ionized Calcium Digoxin Crossmatch 02/09/21 02/09/21 02/10/21 17:31 22:15 06:00 WBC RBC Hgb Hct MCV MCHC RDW Plt Count Lymph % (Auto) Vance % (Auto) Eos % (Auto) Lymph # (Auto) Vance # (Auto) Eos # (Auto) Seg Neutrophils % Seg Neuts % (Manual) Lymphocytes % (Manual) Monocytes % (Manual) Seg Neutrophils # Seg Neutrophils # Man Lymphocytes # (Manual) Monocytes # (Manual) PT INR ABG pH POC ABG pCO2 POC ABG pO2 ABG pO2 ABG HCO3 ABG O2 Saturation ABG Base Excess ABG Hemoglobin ABG Oxyhemoglobin ABG Sodium ABG Potassium ABG Chloride ABG Glucose Oxyhemoglobin Sodium Potassium Chloride 95.4 L Carbon Dioxide BUN 65 H Creatinine 10.2 H Glucose 114 H POC Glucose 114 H 117 H Lactic Acid Calcium Phosphorus 2.20 L Magnesium 2.80 H Iron TIBC Transferrin Ferritin Total Bilirubin AST ALT Alkaline Phosphatase Total Protein Albumin Triglycerides Arterial Blood Glucose Arterial Blood Ionized Calcium Digoxin Crossmatch 02/10/21 02/10/21 02/10/21 06:21 11:45 22:48 WBC RBC Hgb Hct MCV MCHC RDW Plt Count Lymph % (Auto) Vance % (Auto) Eos % (Auto) Lymph # (Auto) Vance # (Auto) Eos # (Auto) Seg Neutrophils % Seg Neuts % (Manual) Lymphocytes % (Manual) Monocytes % (Manual) Seg Neutrophils # Seg Neutrophils # Man Lymphocytes # (Manual) Monocytes # (Manual) PT INR ABG pH POC ABG pCO2 POC ABG pO2 ABG pO2 ABG HCO3 ABG O2 Saturation ABG Base Excess ABG Hemoglobin ABG Oxyhemoglobin ABG Sodium ABG Potassium ABG Chloride ABG Glucose Oxyhemoglobin Sodium 135 L Potassium 3.1 L Chloride 96.3 L Carbon Dioxide BUN 29 H Creatinine 6.2 H Glucose 115 H POC Glucose 111 H 129 H Lactic Acid Calcium 8.0 L Phosphorus Magnesium Iron TIBC Transferrin Ferritin Total Bilirubin AST ALT Alkaline Phosphatase Total Protein Albumin Triglycerides Arterial Blood Glucose Arterial Blood Ionized Calcium Digoxin Crossmatch 02/10/21 02/11/21 02/11/21 23:58 04:20 06:23 WBC RBC Hgb Hct MCV MCHC RDW Plt Count Lymph % (Auto) Vance % (Auto) Eos % (Auto) Lymph # (Auto) Vance # (Auto) Eos # (Auto) Seg Neutrophils % Seg Neuts % (Manual) Lymphocytes % (Manual) Monocytes % (Manual) Seg Neutrophils # Seg Neutrophils # Man Lymphocytes # (Manual) Monocytes # (Manual) PT INR ABG pH POC ABG pCO2 POC ABG pO2 ABG pO2 ABG HCO3 ABG O2 Saturation ABG Base Excess ABG Hemoglobin ABG Oxyhemoglobin ABG Sodium ABG Potassium ABG Chloride ABG Glucose Oxyhemoglobin Sodium 136 L Potassium 3.3 L Chloride 97.4 L Carbon Dioxide BUN 34 H Creatinine 6.9 H Glucose 116 H POC Glucose 125 H 120 H Lactic Acid Calcium Phosphorus 2.00 L Magnesium Iron TIBC Transferrin Ferritin Total Bilirubin AST ALT Alkaline Phosphatase Total Protein Albumin Triglycerides Arterial Blood Glucose Arterial Blood Ionized Calcium Digoxin Crossmatch 02/11/21 02/11/21 02/11/21 11:25 17:31 23:23 WBC RBC Hgb Hct MCV MCHC RDW Plt Count Lymph % (Auto) Vance % (Auto) Eos % (Auto) Lymph # (Auto) Vance # (Auto) Eos # (Auto) Seg Neutrophils % Seg Neuts % (Manual) Lymphocytes % (Manual) Monocytes % (Manual) Seg Neutrophils # Seg Neutrophils # Man Lymphocytes # (Manual) Monocytes # (Manual) PT INR ABG pH POC ABG pCO2 POC ABG pO2 ABG pO2 ABG HCO3 ABG O2 Saturation ABG Base Excess ABG Hemoglobin ABG Oxyhemoglobin ABG Sodium ABG Potassium ABG Chloride ABG Glucose Oxyhemoglobin Sodium Potassium Chloride Carbon Dioxide BUN Creatinine Glucose POC Glucose 125 H 115 H 119 H Lactic Acid Calcium Phosphorus Magnesium Iron TIBC Transferrin Ferritin Total Bilirubin AST ALT Alkaline Phosphatase Total Protein Albumin Triglycerides Arterial Blood Glucose Arterial Blood Ionized Calcium Digoxin Crossmatch 02/12/21 02/12/21 02/12/21 11:30 11:47 17:09 WBC RBC Hgb Hct MCV MCHC RDW Plt Count Lymph % (Auto) Vance % (Auto) Eos % (Auto) Lymph # (Auto) Vance # (Auto) Eos # (Auto) Seg Neutrophils % Seg Neuts % (Manual) Lymphocytes % (Manual) Monocytes % (Manual) Seg Neutrophils # Seg Neutrophils # Man Lymphocytes # (Manual) Monocytes # (Manual) PT INR ABG pH POC ABG pCO2 POC ABG pO2 ABG pO2 ABG HCO3 ABG O2 Saturation ABG Base Excess ABG Hemoglobin ABG Oxyhemoglobin ABG Sodium ABG Potassium ABG Chloride ABG Glucose Oxyhemoglobin Sodium 135 L Potassium Chloride 97.0 L Carbon Dioxide BUN 63 H Creatinine 9.8 H Glucose 113 H POC Glucose 117 H 116 H Lactic Acid Calcium Phosphorus Magnesium Iron TIBC Transferrin Ferritin Total Bilirubin AST ALT Alkaline Phosphatase Total Protein Albumin Triglycerides Arterial Blood Glucose Arterial Blood Ionized Calcium Digoxin Crossmatch 02/13/21 02/13/21 02/13/21 00:27 06:05 22:06 WBC RBC Hgb Hct MCV MCHC RDW Plt Count Lymph % (Auto) Vance % (Auto) Eos % (Auto) Lymph # (Auto) Vance # (Auto) Eos # (Auto) Seg Neutrophils % Seg Neuts % (Manual) Lymphocytes % (Manual) Monocytes % (Manual) Seg Neutrophils # Seg Neutrophils # Man Lymphocytes # (Manual) Monocytes # (Manual) PT INR ABG pH POC ABG pCO2 POC ABG pO2 ABG pO2 ABG HCO3 ABG O2 Saturation ABG Base Excess ABG Hemoglobin ABG Oxyhemoglobin ABG Sodium ABG Potassium ABG Chloride ABG Glucose Oxyhemoglobin Sodium Potassium Chloride Carbon Dioxide 20 L BUN 80 H Creatinine 11.5 H Glucose 111 H POC Glucose 110 H 115 H Lactic Acid Calcium Phosphorus 5.00 H D Magnesium Iron TIBC Transferrin Ferritin Total Bilirubin AST ALT Alkaline Phosphatase 149 H Total Protein 5.9 L Albumin 3.2 L Triglycerides Arterial Blood Glucose Arterial Blood Ionized Calcium Digoxin Crossmatch 02/14/21 02/14/21 02/14/21 06:09 09:24 09:24 WBC 18.2 H RBC 2.44 L Hgb 7.4 L Hct 22.5 L MCV MCHC RDW 18.1 H Plt Count Lymph % (Auto) Vance % (Auto) Eos % (Auto) Lymph # (Auto) Vance # (Auto) Eos # (Auto) Seg Neutrophils % Seg Neuts % (Manual) 91.0 H Lymphocytes % (Manual) 6.0 L Monocytes % (Manual) Seg Neutrophils # Seg Neutrophils # Man 16.6 H Lymphocytes # (Manual) 1.1 L Monocytes # (Manual) PT INR ABG pH POC ABG pCO2 POC ABG pO2 ABG pO2 ABG HCO3 ABG O2 Saturation ABG Base Excess ABG Hemoglobin ABG Oxyhemoglobin ABG Sodium ABG Potassium ABG Chloride ABG Glucose Oxyhemoglobin Sodium 136 L Potassium Chloride Carbon Dioxide BUN 46 H Creatinine 8.1 H Glucose 126 H POC Glucose 124 H Lactic Acid Calcium Phosphorus 1.40 L D Magnesium 1.30 L Iron TIBC Transferrin Ferritin Total Bilirubin AST ALT Alkaline Phosphatase Total Protein Albumin Triglycerides Arterial Blood Glucose Arterial Blood Ionized Calcium Digoxin Crossmatch 02/14/21 02/14/21 02/14/21 11:44 19:11 22:24 WBC RBC Hgb Hct MCV MCHC RDW Plt Count Lymph % (Auto) Vance % (Auto) Eos % (Auto) Lymph # (Auto) Vance # (Auto) Eos # (Auto) Seg Neutrophils % Seg Neuts % (Manual) Lymphocytes % (Manual) Monocytes % (Manual) Seg Neutrophils # Seg Neutrophils # Man Lymphocytes # (Manual) Monocytes # (Manual) PT INR ABG pH POC ABG pCO2 POC ABG pO2 ABG pO2 ABG HCO3 ABG O2 Saturation ABG Base Excess ABG Hemoglobin ABG Oxyhemoglobin ABG Sodium ABG Potassium ABG Chloride ABG Glucose Oxyhemoglobin Sodium Potassium Chloride Carbon Dioxide BUN Creatinine Glucose POC Glucose 120 H 121 H 119 H Lactic Acid Calcium Phosphorus Magnesium Iron TIBC Transferrin Ferritin Total Bilirubin AST ALT Alkaline Phosphatase Total Protein Albumin Triglycerides Arterial Blood Glucose Arterial Blood Ionized Calcium Digoxin Crossmatch 02/15/21 02/15/21 02/16/21 04:28 05:31 05:16 WBC RBC Hgb Hct MCV MCHC RDW Plt Count Lymph % (Auto) Vance % (Auto) Eos % (Auto) Lymph # (Auto) Vance # (Auto) Eos # (Auto) Seg Neutrophils % Seg Neuts % (Manual) Lymphocytes % (Manual) Monocytes % (Manual) Seg Neutrophils # Seg Neutrophils # Man Lymphocytes # (Manual) Monocytes # (Manual) PT INR ABG pH POC ABG pCO2 POC ABG pO2 ABG pO2 ABG HCO3 ABG O2 Saturation ABG Base Excess ABG Hemoglobin ABG Oxyhemoglobin ABG Sodium ABG Potassium ABG Chloride ABG Glucose Oxyhemoglobin Sodium 133 L Potassium Chloride 96.5 L Carbon Dioxide BUN 66 H Creatinine 9.7 H Glucose 117 H POC Glucose 133 H 140 H Lactic Acid Calcium Phosphorus Magnesium 1.50 L Iron TIBC Transferrin Ferritin Total Bilirubin AST ALT Alkaline Phosphatase Total Protein Albumin Triglycerides Arterial Blood Glucose Arterial Blood Ionized Calcium Digoxin Crossmatch 02/16/21 02/16/21 02/16/21 05:24 05:24 15:23 WBC RBC 2.27 L Hgb 7.1 L Hct 20.7 L MCV MCHC RDW 17.8 H Plt Count Lymph % (Auto) Vance % (Auto) Eos % (Auto) Lymph # (Auto) Vance # (Auto) Eos # (Auto) Seg Neutrophils % Seg Neuts % (Manual) Lymphocytes % (Manual) Monocytes % (Manual) Seg Neutrophils # Seg Neutrophils # Man Lymphocytes # (Manual) Monocytes # (Manual) PT INR ABG pH POC ABG pCO2 POC ABG pO2 ABG pO2 ABG HCO3 ABG O2 Saturation ABG Base Excess ABG Hemoglobin ABG Oxyhemoglobin ABG Sodium ABG Potassium ABG Chloride ABG Glucose Oxyhemoglobin Sodium 135 L Potassium Chloride Carbon Dioxide BUN 36 H Creatinine 6.4 H Glucose 128 H POC Glucose Lactic Acid Calcium 8.3 L Phosphorus Magnesium 1.60 L Iron 39 L TIBC 154 L Transferrin 134 L Ferritin Total Bilirubin AST ALT Alkaline Phosphatase Total Protein Albumin Triglycerides Arterial Blood Glucose Arterial Blood Ionized Calcium Digoxin Crossmatch 02/16/21 02/17/21 02/18/21 15:23 11:28 07:39 WBC RBC Hgb Hct MCV MCHC RDW Plt Count Lymph % (Auto) Vance % (Auto) Eos % (Auto) Lymph # (Auto) Vance # (Auto) Eos # (Auto) Seg Neutrophils % Seg Neuts % (Manual) Lymphocytes % (Manual) Monocytes % (Manual) Seg Neutrophils # Seg Neutrophils # Man Lymphocytes # (Manual) Monocytes # (Manual) PT INR ABG pH POC ABG pCO2 POC ABG pO2 ABG pO2 ABG HCO3 ABG O2 Saturation ABG Base Excess ABG Hemoglobin ABG Oxyhemoglobin ABG Sodium ABG Potassium ABG Chloride ABG Glucose Oxyhemoglobin Sodium 130 L Potassium Chloride 94.0 L Carbon Dioxide BUN 30 H Creatinine 7.8 H Glucose 103 H POC Glucose 109 H Lactic Acid Calcium Phosphorus 2.40 L Magnesium 1.40 L Iron TIBC Transferrin Ferritin 4086.0 H Total Bilirubin AST ALT Alkaline Phosphatase Total Protein Albumin Triglycerides Arterial Blood Glucose Arterial Blood Ionized Calcium Digoxin Crossmatch 02/18/21 02/18/21 02/19/21 07:39 19:03 06:38 WBC RBC 2.38 L Hgb 7.4 L Hct 21.7 L MCV MCHC RDW 16.9 H Plt Count Lymph % (Auto) 9.8 L Vance % (Auto) 12.2 H Eos % (Auto) Lymph # (Auto) 0.7 L Vance # (Auto) Eos # (Auto) Seg Neutrophils % 74.3 H Seg Neuts % (Manual) Lymphocytes % (Manual) Monocytes % (Manual) Seg Neutrophils # Seg Neutrophils # Man Lymphocytes # (Manual) Monocytes # (Manual) PT INR ABG pH POC ABG pCO2 POC ABG pO2 ABG pO2 ABG HCO3 ABG O2 Saturation ABG Base Excess ABG Hemoglobin ABG Oxyhemoglobin ABG Sodium ABG Potassium ABG Chloride ABG Glucose Oxyhemoglobin Sodium Potassium Chloride Carbon Dioxide BUN Creatinine Glucose POC Glucose 107 H 106 H Lactic Acid Calcium Phosphorus Magnesium Iron TIBC Transferrin Ferritin Total Bilirubin AST ALT Alkaline Phosphatase Total Protein Albumin Triglycerides Arterial Blood Glucose Arterial Blood Ionized Calcium Digoxin Crossmatch 02/19/21 02/19/21 09:14 11:56 WBC RBC Hgb Hct MCV MCHC RDW Plt Count Lymph % (Auto) Vance % (Auto) Eos % (Auto) Lymph # (Auto) Vance # (Auto) Eos # (Auto) Seg Neutrophils % Seg Neuts % (Manual) Lymphocytes % (Manual) Monocytes % (Manual) Seg Neutrophils # Seg Neutrophils # Man Lymphocytes # (Manual) Monocytes # (Manual) PT INR ABG pH POC ABG pCO2 POC ABG pO2 ABG pO2 ABG HCO3 ABG O2 Saturation ABG Base Excess ABG Hemoglobin ABG Oxyhemoglobin ABG Sodium ABG Potassium ABG Chloride ABG Glucose Oxyhemoglobin Sodium 129 L Potassium 3.5 L Chloride 92.1 L Carbon Dioxide BUN 35 H Creatinine 10.2 H Glucose 103 H POC Glucose 115 H Lactic Acid Calcium Phosphorus Magnesium 1.60 L Iron TIBC Transferrin Ferritin Total Bilirubin AST ALT Alkaline Phosphatase Total Protein Albumin Triglycerides Arterial Blood Glucose Arterial Blood Ionized Calcium Digoxin Crossmatch Allied health notes reviewed: nursing
[2021-02-19] MEDS ORDERED: MAGNESIUM SULFATE 2 GM/50 ML BAG IV ONE (18:00)
[2021-02-19] MEDS ORDERED: TOTAL PARENTERAL NUTRITION 2,016 ML IV SCH (20:00)
[2021-02-19] MEDS: INSULIN GLARGINE 100 UNITS/ML SUB-Q SCH (22:14)
[2021-02-20] MEDS: INSULIN LISPRO 100 UNIT/ML SUB-Q SCH ×4 (00:16→19:00)
[2021-02-20] MEDS: DIPHENOXYLATE/ATROPINE TAB PO SCH ×5 (00:16→23:18)
[2021-02-20] MEDS: hydrALAZINE 20 MG/1 ML INJ IV SCH ×5 (04:38→23:23)
[2021-02-20] MEDS: LOPERAMIDE 2 MG CAP PO PRN ×2 (04:40→23:18)
[2021-02-20] MEDS: METOPROLOL TARTRATE 25 MG TAB PO SCH ×3 (06:03→23:21)
--- NOTE | 2021-02-20 10:05 | Progress Note ---
Assessment and Plan Assessment: * ESRD previouaslyon peritoneal dialysis; now on back up HD (on peritoneal dialysis for 2 years ) * Small bowel obstruction --s/p ex-lap with jejuno-ileal anastamosis --s/p ex lap with extensive lysis of adhesions and two small bowel resections with primary anastamosis for SBO with necrotic segment small bowel. --s/p ex lap, resection of perforated anastamosis, washout and abthera wound vac placement. --s/p ex lap with right hemicolectomy. * Staph epi bacteremia * Septic shock - resolved * Hyperkalemia * Anemia of ESRD * Post op ileus * Paroxysmal atrial fibrillation * Hx of nonischemic cardiomyopathy, resolving --LVEF 50-55% by echo this presentation Plan: * Permcath removed on (following HD) due to bacteremia. Surveillance cultures now negative * Scheduled for reinsertion of PermCath today * Resume MWF schedule * Epogen w/ dialysis -20k * Abx per primary team * Rate control per cardiology * Nutrition per primary team - currently receiving TPN/PPN due to inability to use GI tract * Maintatin MAP >65 * Discharge planning in progress Subjective Date of service: 02/20/21 Principal diagnosis: Ac hypoxemic resp failure; Severe Sepsis; Peritonitis; Acute SBO; ESRD; CHF Interval history: Patient complains of nausea and vomiting. Denies any shortness of breath. TPN infusing. Objective - Vital Signs Vital signs: Vital Signs - 12hr 02/19/21 02/20/21 02/20/21 23:55 04:37 04:38 Temperature 99.0 F 98.9 F Pulse Rate 85 88 Respiratory 18 18 Rate Blood Pressure 152/82 178/91 178/91 O2 Sat by Pulse 100 100 Oximetry 02/20/21 02/20/21 02/20/21 06:03 07:37 08:06 Temperature 98.5 F Pulse Rate 86 78 83 Respiratory 18 Rate Blood Pressure 148/73 152/73 146/77 O2 Sat by Pulse 99 Oximetry - General Appearance General appearance: well-developed, well-nourished, appears stated age EENT: PERRL, mucous membranes moist Neck: no JVD, no thyromegaly, no carotid bruit, supple Respiratory: Present: Clear to Ascultation Cardiology: regular, normal heart rate Gastrointestinal: other (Midline dressing in place. Drainage tube noted) Integumentary: other (No edema) - Lab 02/18/21 07:39 02/19/21 09:14 Most recent lab results ABG pH 7.345 pH Units (7.350-7.450) L 01/07/21 17:14 ABG pCO2 40.3 mm Hg 01/07/21 17:14 ABG pO2 67.4 mm Hg (80.0-90.0) L 01/07/21 17:14 ABG HCO3 21.5 mmol/L (20.0-26.0) 01/07/21 17:14 ABG O2 Saturation 94.3 % (95.0-99.0) L 01/07/21 17:14 Calcium 8.7 mg/dL (8.4-10.2) 02/19/21 09:14 Phosphorus 3.40 mg/dL (2.5-4.5) D 02/19/21 09:14 Magnesium 1.60 mg/dL (1.7-2.3) L 02/19/21 09:14 Medications & Allergies - Medications Allergies/Adverse Reactions: Allergies No Known Allergies Allergy (Verified 06/09/20 15:27) Home Medications: Home Medications Medication Instructions Recorded Confirmed Last Taken Type Albuterol Mdi (or & Nicu Only) 2 puff IH QID PRN #1 inhalation 04/01/17 02/05/21 10/31/20 09:00 Rx [ProAir HFA Inhaler] Calcium Acetate 667 mg PO DAILY 04/20/20 02/05/21 10/31/20 09:00 History Centrum Men's Tablet 1 tab PO DAILY 04/20/20 02/05/21 10/31/20 09:00 History Cinacalcet 30 mg PO DAILY 04/20/20 02/05/21 10/31/20 09:00 History Dialyvite with Zinc Tablet 1 tab PO DAILY 04/20/20 02/05/21 10/31/20 09:00 History Magnesium 250 mg PO BID 04/20/20 02/05/21 10/31/20 17:00 History Triamcinolone 0.1% 1 1000units TRANSDERMA DAILY 04/20/20 02/05/21 10/31/20 09:00 History Vit B12/Folic Acid/B6/Aa No.15 1,000 mg PO DAILY 04/20/20 02/05/21 10/31/20 09:00 History amLODIPine 10 mg PO DAILY 06/09/20 02/05/21 10/31/20 09:00 History AtorvaSTATin 40 mg PO HS 11/01/20 02/05/21 10/31/20 21:00 History Benadryl 25 mg PO HS 11/01/20 02/05/21 10/31/20 21:00 History Diclofenac 1 applic TRANSDERMA QID 11/01/20 02/05/21 10/31/20 19:00 History Fluticasone Propionate 1 spray INTRANASAL DAILY 11/01/20 02/05/21 10/31/20 09:00 History Vitamin D3 2,000 units PO QDAY 11/01/20 02/05/21 10/31/20 09:00 History carvediloL 12.5 mg PO DAILY 11/01/20 02/05/21 10/31/20 09:00 History hydrALAZINE 100 mg PO TID 11/01/20 02/05/21 10/31/20 19:00 History Active Medications: Generic Name Dose Route Start Last Admin Trade Name Freq PRN Reason Stop Dose Admin Acetaminophen 650 mg 02/14/21 09:00 02/14/21 16:34 Acetaminophen 325 Mg Tab PO 650 mg Q6H PRN Administration Pain, Mild (1-3) Clonidine HCl 0.2 mg 01/11/21 10:00 02/15/21 11:36 Clonidine Tts 0.2 Mg/24 Hr Patch TD Not Given We THOMAS Dextrose 50 ml 01/14/21 17:59 01/18/21 15:10 Dextrose 50% In Water (25gm) 50 Ml Syringe IV 20 ml Q30MIN PRN Administration Hypoglycemia Protocol Diphenhydramine HCl 50 mg 01/20/21 10:10 02/01/21 14:15 Diphenhydramine 50 Mg/Ml Vial IV 50 mg Q6H PRN Administration Itching Diphenoxylate HCl/Atropine 1 tab 02/06/21 18:00 02/20/21 06:03 Diphenoxylate/Atropine Tab PO Not Given Q6H THOMAS Famotidine 10 mg 12/24/20 13:00 02/19/21 21:56 Famotidine 20 Mg/2 Ml Inj IV 10 mg BID THOMAS Administration Fluticasone Propionate 50 mcg 02/07/21 10:00 02/19/21 12:58 Fluticasone Propionate Nasal [place] 16 Gm NS 50 mcg QDAY THOMAS Administration Haloperidol Lactate 5 mg 12/29/20 14:16 01/22/21 23:56 Haloperidol Lactate 5 Mg/1 Ml Inj IV 5 mg Q12H PRN Administration Agitation Heparin Sodium (Porcine) 5,000 unit 12/24/20 10:00 02/19/21 21:55 Heparin 5,000 Unit/1 Ml Vial SUB-Q 5,000 unit Q12HR THOMAS Administration Hydralazine HCl 10 mg 01/10/21 14:00 02/20/21 07:37 Hydralazine 20 Mg/1 Ml Inj IV 10 mg Q4HR THOMAS Administration Hydrocortisone Acetate 1 applic 02/01/21 18:43 Hydrocortisone 1% Cream 28.4gm TP Q8H PRN Skin Irritation Hydromorphone HCl 0.25 mg 01/09/21 10:53 02/15/21 22:47 Hydromorphone 1 Mg/1 Ml Inj IV 0.25 mg Q6H PRN Administration Pain , Severe (7-10) Sodium Chloride 100 mls @ 999 mls/hr 02/16/21 10:00 Nacl 0.9% IV [place] PRN Hypotension Amino Acids/Electrolytes/Dextrose 2,016 mls @ 84 mls/hr 02/19/21 20:00 02/19/21 21:51 Tpn Adult IV 02/20/21 19:59 84 mls/hr DAILY@[email or web address] [facility] Administration Protocol Insulin Glargine 5 units 01/18/21 22:00 02/19/21 22:14 Insulin Glargine 100 Units/Ml SUB-Q 5 units QHS THOMAS Administration Insulin Human Lispro 0 unit 01/03/21 12:00 02/20/21 06:03 Insulin Lispro 100 Unit/Ml SUB-Q Not Given Q6HR [facility] Protocol Loperamide HCl 2 mg 02/19/21 14:39 02/20/21 04:40 Loperamide 2 Mg Cap PO 2 mg Q2H PRN Administration Diarrhea Metoprolol Tartrate 25 mg 02/14/21 14:00 02/20/21 06:03 Metoprolol Tartrate 25 Mg Tab PO 25 mg Q8HR THOMAS Administration Morphine Sulfate 2 mg 02/02/21 12:00 02/19/21 15:54 Morphine 2 Mg/1 Ml Inj IV 2 mg Q3H PRN Administration Pain, Moderate (4-6) Ondansetron HCl 4 mg 01/25/21 11:56 02/16/21 07:06 Ondansetron 4 Mg/2 Ml Inj IV 4 mg Q4H PRN Administration Nausea And Vomiting Scopolamine 1 each 01/15/21 11:00 02/17/21 12:11 Scopolamine Transdermal Patch 72 Hr TD 1 each Q3D THOMAS Administration Sodium Chloride 10 ml 12/22/20 22:00 02/19/21 22:49 Sodium Chloride 0.9% 10 Ml Flush Syringe IV 10 ml BID THOMAS Administration Sodium Chloride 10 ml 12/22/20 19:42 01/29/21 02:08 Sodium Chloride 0.9% 10 Ml Flush Syringe IV 10 ml PRN PRN Administration LINE FLUSH
[2021-02-20] MEDS ORDERED: HEPARIN/NS 5000 UNIT/500ML 1,000 ML IR ONE (10:22)
[2021-02-20] MEDS ORDERED: SODIUM CHLORIDE 0.9% 500 ML 0 ML ONE (10:23)
[2021-02-20] MEDS ORDERED: LIDOCAINE (2%) 20 MG/1 ML VIAL 20 ML MDV INFILTRATI ONE (10:23)
[2021-02-20] MEDS ORDERED: ONDANSETRON 4 MG ODT TAB PO SCH (11:00)
[2021-02-20] MEDS ORDERED: MIDAZOLAM 2 MG/2 ML INJ ONE (11:19)
[2021-02-20] MEDS ORDERED: fentaNYL 100 MCG/2 ML INJ ONE (11:20)
[2021-02-20 11:23] LABS: Calcium 8.7 mg/dL (8.4-10.2)
[2021-02-20] MEDS: LIDOCAINE 1%/EPINEPHRINE 1:100,000 VIAL (20 ML) INFILTRATI ONE ×5 (11:32→12:01)
[2021-02-20] MEDS: ceFAZolin/Water 2 GM/20 ML 2 GM/20 ML SYRINGE IV ONE ×2 (11:33→11:51)
[2021-02-20] MEDS: HEPARIN 10,000 UNITS/10 ML VIAL ONE ×6 (11:57→12:16)
--- NOTE | 2021-02-20 12:39 | Progress Note ---
Assessment and Plan Assessment and plan: Severe Sepsis with shock Streptococcus bovis bacteremia/Prevotella bacteremia Gwendolyn albicans tracheal aspirate Small bowel obstruction/necrotic bowel s/p ex lap with extensive lysis of adhesions, 2 small bowel resections with primary anastomosis, right hemicolectomy, jejunal colonic anastomosis, segmental small bowel resection Postoperative ileus Atrial fibrillation with RVR Leukocytosis Hypochloremia Gwendolyn albicans in tracheal aspirate from 12/24 ESRD on PD, PermCath to be placed Transaminitis Systolic CHF(EF 35%) Crohn's disease Hypertension Hypokalemia and hypophosphatemia -[facility], surgery, infectious disease, nephrology, vascular surgery, cardiology consulted, appreciate recommendations -12/24 S/p ex lap with extensive expectations, 2 small bowel resections with primary anastomosis with surgery on 12/23 -s/p PICC and Permacath placement with vascular surgery on 12/27 -Extubated on 12/28, reintubated 12/31 for respiratory distress and extubated 01/08 -12/29 echocardiogram shows moderate concentric LVH, small pericardial effusion, transmitral Doppler flow pattern is grade 1 abnormal relaxation pattern, left- ventricular systolic function normal, LVEF 50 to 55%, no wall motion abnormalities. -01/01 CT abdomen/pelvis shows small pericardial effusion, mild coronary artery atherosclerotic calcification, small bilateral pleural effusions with associated volume loss, no convincing evidence of bowel obstruction or inflammation, postoperative changes from interval/recent midline laparotomy with a moderate amount of free fluid throughout the abdomen, small amount of dependent free air presumably postoperative -01/02 s/p ex lap, resection of perforated anastamosis, washout and abthera wound vac placement. -01/04 s/p ex lap with right hemicolectomy. -01/06 s/p exploratory laparotomy, Jejunal colonic anastomosis, Segmental small bowel resection. -s/p Vasopressor support with Levophed and vasopressin -Transitioned to HD from PD -HD per nephro, Epogen with HD -Strict NPO -cont TPN, Octreotide drip -s/p NGT to LIWS, now placed on G-tube for decompression - s/p rectal tube -s/p IV antibiotics -Tobacco abuse cessation counseling -Trend CBC, BMP DVT/GI prophylaxis: PPI, heparin subcu, SCDs to bilateral lower extremities while in bed Brief Course: This is a 60 YO Male with ESRD on PD, GERD, Crohn's Disease, Nicotine Dependence, HTN, Systolic CHF(EF 35%) who presented to the emergency department on 12/22 with complaints of abdominal pain which began shortly after e ating fast food rated 10/10 which is periumbilical, constant, associated with fever, nausea and multiple sites of vomiting and self-reported inability to undergo PD. In the emergency room patient underwent a CT scan of the abdomen/pelvis which revealed evidence of partial small bowel obstruction, s ymptoms were consistent with bacterial peritonitis. Patient was admitted to the hospital service with sepsis, peritonitis, and small bowel obstruction with consults to general surgery, nephrology, infectious disease and [facility]. Daily clinical course: 12/23. Patient had temperature 101.2 F, tachycardia and elevated lactic acid on admission. Meet sepsis criteria. Started on IV antibiotics. ID has been consulted. Surgery consulted this a.m.-advised laparoscopy. He remains on NG tube connected to suction. 12/24. Patient was noted to have peritonitis yesterday and patient undergoing exploratory laparotomy. Patient remained intubated after procedure and is in ICU. Now on broad-spectrum antibiotics. ID on board. 12/25. Remains mechanically ventilated and sedated. Temp 103 Fahrenheit. Antibiotics broadened-ID added fluconazole and Flagyl. Blood cultures ordered. Plan to repeat CT abdomen tomorrow if not better. Surgery following. 12/26: Patient remains on mechanical ventilation on CMV tidal line 550, rate of 14, PEEP of 8 and 30% FiO2 and sedated on fentanyl 4 micrograms. Today we will remove his Jeffery and CCM dropped his rate controlled him on CPAP. We will trend CBC given recent drop in H/H. 12/27: Patient remains intubated on CMV tidal volume 550, rate 12, PEEP 8 on 30% FiO2 at the time my examination. Patient's TPN will be changed to PPN. Pat ient's fentanyl drip will be changed to IV push fentanyl and have a permacath placed today and midline. Patient was placed on a spontaneous breathing trial was switched back to CMV prior to procedure. 12/28: Patient on fentanyl but awake and follows commands. At the time of my examination he was on a CPAP trial and is scheduled to receive HD today. s/o permacath and PICC placement with vascular yesterday. His blood culture grew Prevotella and addition to Streptococcus bovis. This evening Dr. Spicer attempted to extubate the patient and his heart rate went to the 180s. Stat EKG obtained and cardiology consulted. 12/29: Patient was started on amiodarone IV for A. fib RVR yesterday and today he is more rate controlled into the 70s and 80s. Patient was extubated yesterday and is currently on Ventimask. Patient will be transferred to [facility]. Patient continues to be n.p.o. with TPN and NG tube to [facility]. He is hypokalemic today which was repleted. 12/30; patient was on IV amiodarone for treatment with RVR, rate is controlled. Patient was off oxygen. patient is n.p.o. and on TPN. Surgery is following the patient. 12/31: Patient was intubated overnight for respiratory distress and this morning on examination he was on assist control tidal volume 450, rate 20, PEEP 6, 100% FiO2 and RT was getting a ABG to adjust vent settings. Patient had a acute bump in WBC and per ID recommendations we will obtain a CT abdomen/pelvis if leukocytosis persist. Patient is on TPN and sedated with Levophed. Patient is also on vasopressor support with Levophed. Per surgery his ileus is resolving however will maintain OGT to LIWS. 01/01: Patient was started on a vasopressin yesterday late evening. This morning patient is on 20 mcg of Levophed and 0.03 vasopressin and sedated on 20 mcg of propofol. Patient WBC increased today and he is hypokalemic. We will treat hyperkalemia. Patient had a CT chest and abdomen/pelvis pending. The time examination total of 450, rate 20, PEEP of 6 and 35 percent FiO2. Per RN, Dr Pollock has stated that the patient will be returning to the OR today for likely anastomosis seen on CT abdomen/pelvis. 01/02: Patient noted, WBC improving, but noted to have anemia, will transfuse additional unit of Blood and repeat H/H. continue supportive care. 01/03: Continue to wean pressors, ABX PER ID, patient to return to OR today for washout and possible closure, CONTINUE TPN 5/12: Continues to show some improvement. Today is POD#12 s/p ex lap with extensive lysis of adhesions and two small bowel resections with primary anastamosis for SBO with necrotic segment small bowel. POD#3 s/p ex lap, resection of perforated anastamosis, washout and abthera wound vac placement. POD#1 s/p ex lap with right hemicolectomy. Surgery planning to take back to the OR on Saturday with the hope to anastamos ileum to transverse colon and close abdomen. keep NGT to suction. Pt in deep sedation due to open abdomen. Per ID - Continue IV Zosyn, renally dosed for Strep bacteremia treatment till 01/06/2021 -On TPN 01/05: Patient continues on HD, anticipate return to OR tomorrow for closure and anastemosis. Continues with deep sedation due to open abdomen 01/06: Continue supportive care, monitor pressures and electrolytes. He is post op Exploratory laparotomy, 2. Jejunal colonic anastomosis,3. Segmental small bowel resection and anastemosis closure today. Continue wound vac 01/07: Continue supportive care, Today is POD#15 s/p ex lap with extensive lysis of adhesions and two small bowel resections with primary anastamosis for SBO with necrotic segment small bowel. POD#6 s/p ex lap, resection of perforated anastamosis, washout and abthera wound vac placement. POD#4 s/p ex lap with right hemicolectomy. POD #1 exploratory laparotomy, 2. Jejunal colonic anastomosis,3. Segmental small bowel resection. Continue to monitor and corre ct electrolytes. Patient remains on fentanyl and TPN with lipids. Still hypoactive bowel sounds. 16: Patient now extubated, asked when he can go home, Still lethargic. Continue wound management, wound vac, Will need Rehab eval prior to discharge. 01/09: Patient remains on TPN, was started on labetalol drip per cardiology, patient had uncontrolled hypertension today however he cannot be given p.o. medications ileus resolves per surgery. Patient received hemodialysis today. NG tube remains to low intermittent suction. 01/10: Patient has some leukocytosis, slight hypokalemia and hyponatremia, metabolic acidosis. NG tube to LIWS, continue TPN. Patient will be downgraded to IMCU today. [facility] is working on placement. Will change frequency of hydralazine and discontinue labetalol drip. We will obtain a.m. BMP/mag/Phos and CBC. Infectious disease will like to start Zosyn if leukocytosis continues to worsen. 01/11: Patient leukocytosis has slightly improved potassium with in normal limits and other electrolytes are elevated but patient is scheduled for HD today. Remains on RA and A,A,Ox4. BP better controlled but remains elevated and we will increase clonidine dose. 01/12/2021; patient's blood pressure is better after dialysis and as needed IV medications and clonidine patch. Patient is followed by general surgery. Patient was alert and oriented and asked when he is going home. 01/13: Surgery is concerned about a leak at his anastamosis given increased output and will treat as controlled fistula and start an octreotide drip. And per surgery if he requires operative intervention will likely need to be left in discontinuity and eventual ileostomy as he has already failed two anastamoses. Patient still has tongue swelling and slurred speech. He is on Benadryl. 01/14: Patient's tongue swelling is improved, patient is alert and oriented, CAM ICU negative. Continue NG tube to low wall intermittent suction. Leukocytosis is improving. Hypomagnesemia resolved. Epogen with HD 01/15: Patient tongue swelling is much improved, bladder scan completed by bedside RN and he needed to be straight cathed. NGT output decreased. Leukocytosis improving. Patient has been having episodes of hypoglycemia during the day and he is on cyclic TPN, Lantus rescheduled to nightly and dosage decreased. 01/16: Continue management per ID and surgery. Will defer repeat CT of the a bdomen to the team surgery has been approved by nephrology. Continue current diet and advance all to ice if okay with surgery discussed with nursing staff. 01/17: Discussed surgical recommendation of strict n.p.o. except for small amount of ice as patient has already failed to anastomosis. And risk for additional surgery with tissues were extremely friable from previous scar. He continues on octreotide drip to slow down GI output HARIS drain remains in place with NG suction for decompression. Patient verbalized understanding although stressed about being discharged. We will continue IMCU care unless otherwise advised by surgery. Prognosis remains guarded continue to monitor electrolytes considering GI output. 01/18: Continue supportive care, BP mildly elevated, continue to monitor, cont inue current therapy, if no return to PO soon may consider Increasing clonidine to 0.3, PO when ok with surgery. 01/19:Continue supportive care, Per ID continue IV Zosyn, plan to stop at 3 weeks from last surgery end date: 01/24/2021. Other management per surgery. Continue TPN. 01/20: Discussed with Surgery, will continue current management. Advised patient of the findings and plan. 01/21: Continue supportive care. Continue management per surgery advance diet when okay with surgery. Plan of care discussed with the patient in detail. 01/22: NG tube to be replaced explained to the patient why this is important. I agree with PT OT discussed with nursing staff very important to let the PT team know that they should manage HARIS drain while patient is ambulating so that he d oes not come out. Continue current management. Change in ocreotide to q8h and d/c drip NOTED 01/23: Continue supportive care, HD today, counselling provided to the patient on compliance with medical management 01/24: Replace NGT, Continue management per Surgery. POD 32. Mild hypokalemia noted, will replace. 01/25: Brief summary patient is a 60-year-old male admitted with abdominal pain and noted to have necrotic bowel concerning for PD associated peritonitis. Catheter was placed to convert to HD. Patient also underwent multiple surgical interventions. Initial cultures showed Streptococcus bovis bacteremia and Prevotella bacteremia a COLIN was without vegetations repeat blood cultures have been negative. Part of the surgery is included ex lap, resection of perforated anastomosis, washout and a better wound VAC placement on 01/01. While progress has remained slow if has indeed shown some improvement. Patient is agitated about being in the hospital but understands the care management been provided his vital to his health and to prevent further surgeries. The NG tube has been pulled out 2 days ago he vehemently refused the tube being placed back but after a day of nausea with associated vomiting he was accepting of the chest tube to put back. He continues on TPN. We will continue to monitor electrolytes and correct as needed. This a.m. and erroneous blood was obtained likely from the same line as TPN repeat was done which showed normalizing factors. Patient completed antibiotics on 01/25/2020 . 01/26 Patient with severe sepsis with septic shock, small bowel obstruction, necrotic bowel s/p multiple surgeries. He complains of abdominal pain. No fever currently. He asked me when is he going home and i explained that he is not yet stable for discharge 01/27 Patient with severe sepsis with septic shock, small bowel obstruction, necrotic bowel s/p multiple surgeries. He complains of abdominal pain. No fever currently. Paroxysmal atrial fib managed by cardiology 01/28 Patient with severe sepsis with septic shock, small bowel obstruction, necrotic bowel s/p multiple surgeries. No fever currently. No abd pain currently. I discussed with Surgeon, Dr. Pollock. Continue current management. He also has paroxysmal afib, managed by Cardiology. 01/29 Patient with severe sepsis with septic shock, small bowel obstruction, necrotic bowel s/p multiple surgeries. No fever currently. No abd pain currently. I discussed with Surgeon, Dr. Pollock, yesterday. Continue current management. He also has paroxysmal afib, managed by Cardiology. He is on Metoprolol, Digoxin, Clonidine 01/30 Patient with severe sepsis with septic shock, small bowel obstruction, nec rotic bowel s/p multiple surgeries. Patient is a 60-year-old male admitted with abdominal pain and noted to have necrotic bowel concerning for PD associated peritonitis. Catheter was placed to convert to HD. Patient also underwent multiple surgical interventions. Initial cultures showed Strepto coccus bovis bacteremia and Prevotella bacteremia a COLIN was without vegetations repeat blood cultures have been negative. Part of the surgery is included ex lap, resection of perforated anastomosis, washout and a better wound VAC placement on 01/01. While progress has remained slow if has indeed shown some improvement. Patient is agitated about being in the hospital but understands the care management been provided his vital to his health and to prevent further surgeries. He continues on TPN. No fever currently. Less abdominal pain. Discussed with Surgeon, Dr. Pollock, few days ago. Continue current management. He also has paroxysmal afib, managed by Cardiology. He is on Metoprolol, Dig oxin, Clonidine. ESRD on dialysis managed by Nephrology. 01/31: Continue HARIS drain suction. Ongoing treatment for anastomotic leak/controlled low output fistula. Maintain LIWS to NGT and monitor output. continue q 8h ocreotide. cont TPN. Defer to general surgery for NG tube discontinuation. 02/01: planned for g-tube placement for gastric decompression. Removed NG tube today. S/p HD -tolerated well : Status post G-tube placement today, resume TPN, patient is off from rectal tube. Continue supportive care and follow general surgery recommendation for discharge planning. Hemodialysis per schedule 02/03 -02/05: cont TPN, G-tube suction, Continue supportive care and follow general surgery recommendation for discharge planning. Hemodialysis per schedule. 02/06: Per surgery Anastamotic leak slowing down and is a controlled fistula. Continue HARIS drain suction. Since HARIS drain has continued to stay about 10ml over the last several days, plan to continue lower dose of octreotide. continue g-tube to drainage for decompression. continue clear liquids and closely monitor HARIS drain output. patient need LTAC placement. Continue to replace electrolytes and monitor phosphate level 02/07/2021; Per surgery Anastamotic leak slowing down and is a controlled fistula. Continue HARIS drain suction. Since HARIS drain has continued to stay about 10ml over the last several days, plan to continue lower dose of octreotide. continue g-tube to drainage for decompression. continue clear liquids and closely monitor HARIS drain output. patient need LTAC placement. Continue to replace electrolytes and monitor phosphate level. 02/08/2021; patient need to be transferred to LTAC. Patient expressed he wants to go home. 02/09/2021; pending LTAC placement 02/10/2021; pending LTAC placement 02/11/2021;case management continues to find a place to take him. General surgery is considering to discharge him home with home health, home TPN. 02/12/2021; patient expressed to go home. Put a consult for case management to arrange home health and home TPN. 02/13/2021; patient does not want to go to rehab or LTAC. I have discussed with case management about the option of getting home health and home PPN. Case management is working on it. 02/14: Patient now with fever Tmax 101.7, has been low grade prior, will recheck per my discussion with nursing staff. Will check CBC, Procalcitonin, blood clutures, chest xray. Patient is a dialysis patient and has PICC line. From my understanding not returning blood. Will need to check integrity of the line. Nurse to call PICC team. Will like to monitor 24 hrs prior to planned discharge. Understand patient is still on TPN. 02/15: Recurrent spesis, in patient with mulitiple line and TPN, input from ID - f/u blood cultures. PER ID - continue empiric renally dosed Cefepime + Vancomycin + Flagyl + Micafungin (has indwelling lines and has been on TPN) - if no source is identified, may need abdominal imaging with CT with contrast coordinated with dialysis No new FEVER TODAY Continue supportive care. 02/16: Patient seen and examined, 4/4 Bottles positive GPC, ID input noted. Discussed with sueding and buffing machine operator, vascular and the patient, all central lines will be removed following HD today. Continue antibiotics. 02/17/21 patient seen and examined. No new complain. Blood culture is positive for GPC. Repeat blood cultures ordered. Continue IV vancomycin. Continue current management. HD as per nephrology. Infectious disease follow-up. Recheck CBC BMP in the morning. 02/18/21 patient seen and examined. Patient feels better. No new complain. WBC 6.7. Hemoglobin 7.4. Blood culture from 02/14/2021 showed staph epidermidis. Most likely contamination we will follow the repeat blood culture. Continue IV vancomycin. Possible permacath placement on 02/20/2021 for hemodialysis. Infectious disease follow-up. Continue TPN. Recheck CBC BMP in the morning. 02/19: Patient changed to PPN till line re-established for TPN. Continue current management, discussed with nursing staff at bedside 02/20: Patient clinically stable, he is for line placement, he had a run of vtach yesterday, Magnesium replacement was done and will recheck, cardiology consulted. continue abx, discharge when cleared by ID. History Interval history: This is a 60-year-old male with ESRD on peritoneal dialysis, Crohn's, hypertension, systolic CHF (EF 35%) who was admitted with sepsis, peritonitis, small bowel obstruction and now has gram-positive cocci bacteremia. Patient clinically stable, going to line placement today, no new fever. No new complaints. Wants to be discharged Hospitalist Physical - Physical exam Narrative exam: Patient was not in cardiopulmonary distress The patient appeared well nourished and normally developed. Vital signs as documented. Head exam is unremarkable. No scleral icterus . Neck is without jugular venous distension, thyromegaly, or carotid bruits. Lungs are clear to auscultation. Cardiac exam reveals regular rate and Rhythm. Abdominal exam reveals clean midline surgical laparatomy wound. HARIS tube in place Extremities are nonedematous and both femoral and pedal pulses are normal. [employer]: Alert and oriented 3. No focal weakness. - Constitutional Vitals: Temp Pulse Resp BP Pulse Ox 98.5 F 83 18 146/77 99 02/20/21 08:06 02/20/21 08:06 02/20/21 08:06 02/20/21 08:06 02/20/21 08:06 General appearance: Present: no acute distress HEART Score - HEART Score Troponin: Troponin T 0.021 ng/mL (0.00-0.029) 12/22/20 14:38 Results - Labs CBC & Chem 7: 02/18/21 07:39 02/20/21 07:41 Labs: Laboratory Last Values WBC 6.7 K/mm3 (4.5-11.0) 02/18/21 07:39 RBC 2.38 M/mm3 (3.65-5.03) L 02/18/21 07:39 Hgb 7.4 gm/dl (11.8-15.2) L 02/18/21 07:39 Hct 21.7 % (35.5-45.6) L 02/18/21 07:39 MCV 91 fl (84-94) 02/18/21 07:39 MCH 31 pg (28-32) 02/18/21 07:39 MCHC 34 % (32-34) 02/18/21 07:39 RDW 16.9 % (13.2-15.2) H 02/18/21 07:39 Plt Count 183 K/mm3 (140-440) 02/18/21 07:39 Lymph % (Auto) 9.8 % (13.4-35.0) L 02/18/21 07:39 [place] % (Auto) 12.2 % (0.0-7.3) H 02/18/21 07:39 Eos % (Auto) 3.4 % (0.0-4.3) 02/18/21 07:39 Baso % (Auto) 0.3 % (0.0-1.8) 02/18/21 07:39 Lymph # (Auto) 0.7 K/mm3 (1.2-5.4) L 02/18/21 07:39 [place] # (Auto) 0.8 K/mm3 (0.0-0.8) 02/18/21 07:39 Eos # (Auto) 0.2 K/mm3 (0.0-0.4) 02/18/21 07:39 Baso # (Auto) 0.0 K/mm3 (0.0-0.1) 02/18/21 07:39 Add Manual Diff Complete 02/14/21 09:24 Total Counted 100 02/14/21 09:24 Seg Neutrophils % 74.3 % (40.0-70.0) H 02/18/21 07:39 Seg Neuts % (Manual) 91.0 % (40.0-70.0) H 02/14/21 09:24 Band Neutrophils % 1.0 % 02/14/21 09:24 Lymphocytes % (Manual) 6.0 % (13.4-35.0) L 02/14/21 09:24 Reactive Lymphs % (Man) 1.0 % 12/29/20 05:16 Monocytes % (Manual) 2.0 % (0.0-7.3) 02/14/21 09:24 Eosinophils % (Manual) 2.0 % (0.0-4.3) 12/29/20 05:16 Metamyelocytes % 2.0 % 12/29/20 05:16 Nucleated RBC % Not Reportable 02/14/21 09:24 Seg Neutrophils # 4.9 K/mm3 (1.8-7.7) 02/18/21 07:39 Seg Neutrophils # Man 16.6 K/mm3 (1.8-7.7) H 02/14/21 09:24 Band Neutrophils # 0.2 K/mm3 02/14/21 09:24 Lymphocytes # (Manual) 1.1 K/mm3 (1.2-5.4) L 02/14/21 09:24 Abs React Lymphs (Man) 0.0 K/mm3 02/14/21 09:24 Monocytes # (Manual) 0.4 K/mm3 (0.0-0.8) 02/14/21 09:24 Eosinophils # (Manual) 0.0 K/mm3 (0.0-0.4) 02/14/21 09:24 Basophils # (Manual) 0.0 K/mm3 (0.0-0.1) 02/14/21 09:24 Metamyelocytes # 0.0 K/mm3 02/14/21 09:24 Myelocytes # 0.0 K/mm3 02/14/21 09:24 Promyelocytes # 0.0 K/mm3 02/14/21 09:24 Blast Cells # 0.0 K/mm3 02/14/21 09:24 WBC Morphology Not Reportable 02/14/21 09:24 Hypersegmented Neuts Not Reportable 02/14/21 09:24 Hyposegmented Neuts Not Reportable 02/14/21 09:24 Hypogranular Neuts Not Reportable 02/14/21 09:24 Smudge Cells Not Reportable 02/14/21 09:24 Toxic Granulation Not Reportable 02/14/21 09:24 Toxic Vacuolation Not Reportable 02/14/21 09:24 Dohle Bodies Not Reportable 02/14/21 09:24 Pelger-Huet Anomaly Not Reportable 02/14/21 09:24 Lamar Rods Not Reportable 02/14/21 09:24 Platelet Estimate Consistent w auto 02/14/21 09:24 Clumped Platelets Not Reportable 02/14/21 09:24 Plt Clumps, EDTA Not Reportable 02/14/21 09:24 Large Platelets Rare 02/14/21 09:24 Giant Platelets Not Reportable 02/14/21 09:24 Platelet Satelliting Not Reportable 02/14/21 09:24 Plt Morphology Comment Not Reportable 02/14/21 09:24 RBC Morphology Not Reportable 02/14/21 09:24 Dimorphic RBCs Not Reportable 02/14/21 09:24 Polychromasia Few 02/14/21 09:24 Hypochromasia Not Reportable 02/14/21 09:24 Poikilocytosis Not Reportable 02/14/21 09:24 Anisocytosis 1+ 02/14/21 09:24 Microcytosis Not Reportable 02/14/21 09:24 Macrocytosis Not Reportable 02/14/21 09:24 Spherocytes Not Reportable 02/14/21 09:24 Pappenheimer Bodies Not Reportable 02/14/21 09:24 Sickle Cells Not Reportable 02/14/21 09:24 Target Cells Not Reportable 02/14/21 09:24 Tear Drop Cells Few 02/14/21 09:24 Ovalocytes Not Reportable 02/14/21 09:24 Helmet Cells Not Reportable 02/14/21 09:24 [place] Bodies Not Reportable 02/14/21 09:24 [place] Rings Not Reportable 02/14/21 09:24 [place] Cells Not Reportable 02/14/21 09:24 Bite Cells Not Reportable 02/14/21 09:24 Crenated Cell Not Reportable 02/14/21 09:24 Elliptocytes Not Reportable 02/14/21 09:24 Acanthocytes (Spur) Not Reportable 02/14/21 09:24 Rouleaux Not Reportable 02/14/21 09:24 Hemoglobin C Crystals Not Reportable 02/14/21 09:24 Schistocytes Not Reportable 02/14/21 09:24 Malaria parasites Not Reportable 02/14/21 09:24 [place] Bodies Not Reportable 02/14/21 09:24 Hem Pathologist Commnt No 02/14/21 09:24 PT 16.9 Sec. (12.2-14.9) H 01/01/21 12:45 INR 1.39 (0.87-1.13) H 01/01/21 12:45 APTT 25.1 Sec. (24.2-36.6) 12/22/20 14:38 ABG pH 7.345 pH Units (7.350-7.450) L 01/07/21 17:14 POC ABG pCO2 41.4 mmHg (32.0-48.0) 01/07/21 03:07 ABG pCO2 40.3 mm Hg 01/07/21 17:14 POC ABG pO2 94.5 mmHg (83-108) 01/07/21 03:07 ABG pO2 67.4 mm Hg (80.0-90.0) L 01/07/21 17:14 POC ABG HCO3 22.7 01/07/21 03:07 ABG HCO3 21.5 mmol/L (20.0-26.0) 01/07/21 17:14 ABG O2 Saturation 94.3 % (95.0-99.0) L 01/07/21 17:14 ABG O2 Content 11.6 (0.0-44) 01/07/21 17:14 POC ABG Base Excess -2.7 01/07/21 03:07 ABG Base Excess -3.9 mmol/L (-2.0-3.0) L 01/07/21 17:14 ABG Hemoglobin 8.9 gm/dl (14.0-18.0) L 01/07/21 17:14 ABG Oxyhemoglobin 96.6 (94-98) 01/07/21 03:07 ABG Carboxyhemoglobin 1.5 % (0.0-5.0) 01/07/21 17:14 ABG Methemoglobin 0.6 % (0.0-1.5) 01/07/21 17:14 ABG Sodium 135.6 mmol/L (136.0-145.0) L 01/07/21 03:07 ABG Potassium 4.0 mmol/L (3.40-4.50) 01/07/21 03:07 ABG Chloride 102.0 mmol/L (98-107) 01/07/21 03:07 ABG Glucose 181 mg/dL (65-95) H 01/07/21 03:07 Oxyhemoglobin 92.3 % (95.0-99.0) L 01/07/21 17:14 Carboxyhemoglobin 0.7 (0.5-1.5) 01/07/21 03:07 FiO2 21 % 01/07/21 17:14 FiO2 % 45.0 01/07/21 03:07 Sodium 128 mmol/L (137-145) L 02/20/21 07:41 Potassium 3.8 mmol/L (3.6-5.0) 02/20/21 07:41 Chloride 91.0 mmol/L (98-107) L 02/20/21 07:41 Carbon Dioxide 23 mmol/L (22-30) 02/20/21 07:41 Anion Gap 18 mmol/L 02/20/21 07:41 BUN 41 mg/dL (9-20) H 02/20/21 07:41 Creatinine 11.8 mg/dL (0.8-1.3) H 02/20/21 07:41 Estimated GFR 5 ml/min 02/20/21 07:41 BUN/Creatinine Ratio 3 % 02/20/21 07:41 Glucose 103 mg/dL (75-100) H 02/20/21 07:41 POC Glucose 105 mg/dL (70-105) 02/20/21 06:21 Lactic Acid 1.70 mmol/L (0.7-2.0) 02/14/21 09:24 Calcium 8.7 mg/dL (8.4-10.2) 02/20/21 07:41 Phosphorus 3.40 mg/dL (2.5-4.5) D 02/19/21 09:14 Magnesium 2.70 mg/dL (1.7-2.3) H 02/20/21 07:41 Iron 39 ug/dL (49-181) L 02/16/21 15:23 TIBC 154 mcg/dL (250-450) L 02/16/21 15:23 % Saturation 25.32 % 02/16/21 15:23 Transferrin 134 mg/dl (180-329) L 02/16/21 15:23 Ferritin 4086.0 ng/mL (30.0-300.0) H 02/16/21 15:23 Total Bilirubin 0.50 mg/dL (0.1-1.2) 02/13/21 06:05 AST 14 units/L (5-40) 02/13/21 06:05 ALT 20 units/L (7-56) 02/13/21 06:05 Alkaline Phosphatase 149 units/L (35-129) H 02/13/21 06:05 Ammonia 30.0 umol/L (25-60) 12/22/20 14:38 Troponin T 0.021 ng/mL (0.00-0.029) 12/22/20 14:38 Total Protein 5.9 g/dL (6.3-8.2) L 02/13/21 06:05 Albumin 3.2 g/dL (3.9-5) L 02/13/21 06:05 Albumin/Globulin Ratio 1.2 % 02/13/21 06:05 Triglycerides 72 mg/dL (2-149) 01/30/21 04:15 Lipase 41 units/L (13-60) 12/22/20 14:38 Procalcitonin 27.86 ng/mL (<0.15) 02/14/21 09:24 TSH 1.470 mlU/mL (0.270-4.200) 12/28/20 19:44 Arterial Blood Glucose 181 mg/dL (65-95) H 01/07/21 03:07 Arterial Blood Ionized Calcium 4.3 mg/dL (4.6-5.3) L 01/07/21 03:07 Urine Color Yellow (Yellow) 12/22/20 18:53 Urine Turbidity Clear (Clear) 12/22/20 18:53 Urine pH 7.0 (5.0-7.0) 12/22/20 18:53 Ur Specific [place] 1.012 (1.003-1.030) 12/22/20 18:53 Urine Protein >500 mg/dL (Negative) 12/22/20 18:53 Urine Glucose (UA) Neg mg/dL (Negative) 12/22/20 18:53 Urine Ketones Neg mg/dL (Negative) 12/22/20 18:53 Urine Blood Neg (Negative) 12/22/20 18:53 Urine Nitrite Neg (Negative) 12/22/20 18:53 Urine Bilirubin Neg (Negative) 12/22/20 18:53 Urine Urobilinogen < 2.0 mg/dL (<2.0) 12/22/20 18:53 Ur Leukocyte Esterase Neg (Negative) 12/22/20 18:53 Urine WBC (Auto) < 1.0 /HPF (0.0-6.0) 12/22/20 18:53 Urine RBC (Auto) 1.0 /HPF (0.0-6.0) 12/22/20 18:53 Fluid Type Dialysate 12/22/20 Unknown Fluid Color Colorless 12/22/20 Unknown Fluid Appearance Cloudy 12/22/20 Unknown Fluid WBC 208 /mm3 12/22/20 Unknown Fluid RBC 45 /mm3 12/22/20 Unknown Fluid Seg Neutrophils 82.0 % 12/22/20 Unknown Fluid Lymphocytes 11.0 % 12/22/20 Unknown Fluid Reactive Lymphs 0 % 12/22/20 Unknown Fluid Monocytes 7.0 % 12/22/20 Unknown Fluid Eosinophils 0 % 12/22/20 Unknown Fluid Basophils 0 % 12/22/20 Unknown Random Vancomycin 17.3 ug/mL (0-40.0) 02/20/21 07:41 Digoxin 0.9 ng/mL (0.9-2.0) 02/04/21 05:40 Coronavirus (PCR) Negative (Negative) 02/13/21 Unknown Hepatitis A IgM Ab Non-reactive (NonReactive) 02/02/21 12:41 Hep Bs Antigen Non-reactive (Negative) 02/02/21 12:41 Hep B Core IgM Ab Non-reactive (NonReactive) 02/02/21 12:41 Hepatitis C Antibody Non-reactive (NonReactive) 02/02/21 12:41 Blood Type A POSITIVE 01/06/21 07:10 Antibody Screen Negative 01/06/21 07:10 Crossmatch See Detail 01/06/21 07:10 Microbiology: Microbiology 02/16/21 15:43 Peripheral/Venous Blood Culture - Preliminary NO GROWTH AFTER 72 HOURS 02/16/21 15:23 Peripheral/Venous Blood Culture - Preliminary NO GROWTH AFTER 72 HOURS Jeffery/IV: Voiding Method Bedside Commode Active Medications - Current Medications Current Medications: Generic Name Dose Route Start Last Admin Trade Name Freq PRN Reason Stop Dose Admin Acetaminophen 650 mg 02/14/21 09:00 02/14/21 16:34 Acetaminophen 325 Mg Tab PO 650 mg Q6H PRN Administration Pain, Mild (1-3) Clonidine HCl 0.2 mg 01/11/21 10:00 02/15/21 11:36 Clonidine Tts 0.2 Mg/24 Hr Patch TD Not Given We THOMAS Dextrose 50 ml 01/14/21 17:59 01/18/21 15:10 Dextrose 50% In Water (25gm) 50 Ml Syringe IV 20 ml Q30MIN PRN Administration Hypoglycemia Protocol Diphenhydramine HCl 50 mg 01/20/21 10:10 02/01/21 14:15 Diphenhydramine 50 Mg/Ml Vial IV 50 mg Q6H PRN Administration Itching Diphenoxylate HCl/Atropine 1 tab 02/06/21 18:00 02/20/21 06:03 Diphenoxylate/Atropine Tab PO Not Given Q6H THOMAS Famotidine 10 mg 12/24/20 13:00 02/19/21 21:56 Famotidine 20 Mg/2 Ml Inj IV 10 mg BID THOMAS Administration Fluticasone Propionate 50 mcg 02/07/21 10:00 02/19/21 12:58 Fluticasone Propionate Nasal [place] 16 Gm NS 50 mcg QDAY THOMAS Administration Haloperidol Lactate 5 mg 12/29/20 14:16 01/22/21 23:56 Haloperidol Lactate 5 Mg/1 Ml Inj IV 5 mg Q12H PRN Administration Agitation Heparin Sodium (Porcine) 5,000 unit 12/24/20 10:00 02/19/21 21:55 Heparin 5,000 Unit/1 Ml Vial SUB-Q 5,000 unit Q12HR THOMAS Administration Hydralazine HCl 10 mg 01/10/21 14:00 02/20/21 07:37 Hydralazine 20 Mg/1 Ml Inj IV 10 mg Q4HR THOMAS Administration Hydrocortisone Acetate 1 applic 02/01/21 18:43 Hydrocortisone 1% Cream 28.4gm TP Q8H PRN Skin Irritation Hydromorphone HCl 0.25 mg 01/09/21 10:53 02/15/21 22:47 Hydromorphone 1 Mg/1 Ml Inj IV 0.25 mg Q6H PRN Administration Pain , Severe (7-10) Sodium Chloride 100 mls @ 999 mls/hr 02/16/21 10:00 Nacl 0.9% IV [place] PRN Hypotension Amino Acids/Electrolytes/Dextrose 2,016 mls @ 84 mls/hr 02/19/21 20:00 02/19/21 21:51 Tpn Adult IV 02/20/21 19:59 84 mls/hr [email or web address] [facility] Administration Protocol Amino Acids/Electrolytes/Dextrose 2,016 mls @ 84 mls/hr 02/20/21 20:00 Tpn Adult IV 02/21/21 19:59 [email or web address] [facility] Protocol Fat Emulsion Intravenous 250 mls @ 21 mls/hr 02/20/21 20:00 Intralipid 20% IV 02/21/21 08:00 [email or web address] [facility] Insulin Glargine 5 units 01/18/21 22:00 02/19/21 22:14 Insulin Glargine 100 Units/Ml SUB-Q 5 units QHS [facility] Administration Insulin Human Lispro 0 unit 01/03/21 12:00 02/20/21 06:03 Insulin Lispro 100 Unit/Ml SUB-Q Not Given Q6HR [facility] Protocol Loperamide HCl 2 mg 02/19/21 14:39 02/20/21 04:40 Loperamide 2 Mg Cap PO 2 mg Q2H PRN Administration Diarrhea Metoprolol Tartrate 25 mg 02/14/21 14:00 02/20/21 06:03 Metoprolol Tartrate 25 Mg Tab PO 25 mg Q8HR [facility] Administration Morphine Sulfate 2 mg 02/02/21 12:00 02/19/21 15:54 Morphine 2 Mg/1 Ml Inj IV 2 mg Q3H PRN Administration Pain, Moderate (4-6) Ondansetron HCl 4 mg 01/25/21 11:56 02/16/21 07:06 Ondansetron 4 Mg/2 Ml Inj IV 4 mg Q4H PRN Administration Nausea And Vomiting Scopolamine 1 each 01/15/21 11:00 02/17/21 12:11 Scopolamine Transdermal Patch 72 Hr TD 1 each Q3D THOMAS Administration Sodium Chloride 10 ml 12/22/20 22:00 02/19/21 22:49 Sodium Chloride 0.9% 10 Ml Flush Syringe IV 10 ml BID THOMAS Administration Sodium Chloride 10 ml 12/22/20 19:42 01/29/21 02:08 Sodium Chloride 0.9% 10 Ml Flush Syringe IV 10 ml PRN PRN Administration LINE FLUSH Nutrition/Malnutrition Assess - Dietary Evaluation Nutrition/Malnutrition Findings: Nutrition Notes Start: 12/24/20 12:36 Freq: Status: Active Protocol: Document 02/20/21 10:42 (Rec: 02/20/21 10:46 [id number]) Nutrition Notes Initial or Follow up Reassessment Current Diagnosis CKD (stage V CKD),Sepsis, Hypertension,Heart Failure, Small Bowel Obstruction Other Pertinent Diagnosis onHD, s/p exp lap, s/p bowel resections, afib Current Diet CPN at 84 ml/hr + NPO Labs/Tests No new labs Pertinent Medications Imodium (02/19) Mg sulfate 2 gm Height 5 ft 7 in Weight 86 kg [place] Body Weight (kg) 67.27 BMI 29.7 Weight Status Appropriate Subjective/Other Information Day 57 PPN. Pt not in room at time of visit. Per chart, pt getting PICC today. Will leave Mg in PPN the same as yesterday because as MD repleated it yesterday. Percent of energy/protein needs met: 35%/57% Burn Absent Trauma Absent Current % PO Negligible #2 Nutrition Diagnosis Increased nutrient needs ( specify in comment below) Diagnosis Progress(for reassessment Continues documentation) #1 Nutrition Diagnosis Inadequate oral intake Diagnosis Progress(for reassessment Continues documentation) Is patient on ventilator? No Is Patient Ambulatory and/or Out of Bed Yes REE-(Muncy-St. Jeor-ambulatory/OOB) [ 2104.219 [id number]] Calculation Used for Recommendations [place]-St Jeor Additional Notes Pro needs 1.2-1.3g/k- 109g/day Fluid needs per MD. Nutrition Intervention Change Diet Order: Continue PPN Nutrition Support: Change to PPN at 84 ml/hr/ MVI , Lipids; Osm 899 mosm; Kcal 1,242 Protein (gm) 58 Carbohydrates (gm) 150 Fat (gm) 50 Fluid (mL) 2,266 Fiber (gm) 0 Goal #1 Meet needs as best as possible via PPN Follow-Up By: 02/21/21 Additional Comments Labs in AM: CMP, Mg, Phos FU for IV line access
--- NOTE | 2021-02-20 12:56 | Operative Report ---
Operative Report Operative Report: EXAM: 1. Ultrasound-guided puncture of the right internal jugular vein 2. Fluoroscopic-guided placement of a right internal jugular tunneled cuffed hemodialysis catheter. 3. Ultrasound-guided puncture of the right internal jugular vein 4. Fluoroscopic-guided placement of a right internal jugular tunneled cuffed small bore catheter. DATE: 02/21/2021 INDICATION: End-stage renal disease and chronic TPN dependence requiring dialysis and TPN line MEDICATIONS: Please see nursing report for full details. DEVICES: 23 cm tip to cuff 15 Fr dual lumen hemodialysis catheter small bore dual lumen powerline PHOTOVOLTAIC TECHNICIAN: LAXMI CHISHOLM MD CONTRAST: None PROCEDURE: The risks, benefits, and alternatives were discussed and informed consent was obtained. The patient was transported to the angiography suite in satisfactory/stable condition and was transported onto the angiography table. The necks were prepped and draped in a sterile fashion. The right neck catheter was evaluated with ultrasound. The puncture site was anesthetized. Under sonographic guidance, the right internal jugular vein was punctured with a 21-gauge micropuncture needle and a 0.018 inch wire was advanced into the inferior vena cava. The micropuncture needle was exchanged for a transitional dilator and the wire was retracted into the right atrium to marilou intravascular distance. The wire and inner dilator were removed. 0.035 inch Amplatz wire was advanced through the transitional dilator into the inferior vena cava. A suitable exit site was identified on the patient's chest inferior and lateral to the venotomy. The site was anesthetized with local anesthetic and the track was anesthetized. Dermatotomy was made. The PermCath was attached to the tunneling device and tunneled between the dermatotomy to the venotomy. Over the 0.035 inch wire, serial dilatation was performed with ultimate placement of a peel-away sheath. The catheter was advanced through the peel- away sheath after the wire was removed and positioned centrally under fluoroscopic guidance. The peel-away sheath was removed. 4-0 Vicryl suture was used to close the venotomy and Dermabond was then applied. 2-0 Ethilon suture was used to secure the catheter at the dermatotomy. Sterile dressing and Biopatch applied. The catheter was charged with heparin 1000 units/mL of space. Under sonographic guidance, the right internal jugular vein was punctured with a second 21-gauge micropuncture needle and a 0.018 inch wire was advanced into the inferior vena cava. The micropuncture needle was exchanged for a transitional dilator and the wire was retracted into the right atrium to marilou intravascular distance. The wire and inner dilator were removed. A different 0.018 inch wire was advanced through the transitional dilator into the inferior vena cava. A suitable exit site was identified on the patient's chest inferior and lateral to the venotomy. The site was anesthetized with local anesthetic and the track was anesthetized. Dermatotomy was made. The small bore dual lumen tunneled catheter was attached to the tunneling device and tunneled between the dermatotomy to the venotomy. Over the 0.018 inch wire, serial dilatation was performed with ultimate placement of a peel-away sheath. The catheter was advanced through the peel- away sheath after the wire was removed and positioned centrally under fluoroscopic guidance. The peel-away sheath was removed. 4-0 Vicryl suture was used to close the venotomy and Dermabond was then applied. 3-0 Ethilon suture was used to secure the catheter at the dermatotomy. Sterile dressing and Biopatch applied. The catheter was charged with heparinized saline. The patient was transferred from the angiography suite back to the floor in stable condition. FINDINGS: 1. Excellent flow was obtained through the dialysis catheter with 20 mL syringes. 2. Excellent flow was obtained through the small bore tunneled catheter with 10 mL syringes. 3. The catheter tips are in the right atrium. IMPRESSION: 1. Successful ultrasound and fluoroscopically guided placement of a right internal jugular tunneled cuffed hemodialysis catheter. 2. Successful ultrasound and fluoroscopically guided placement of a right internal jugular tunneled cuffed small bore catheter.
--- NOTE | 2021-02-20 12:56 | Post Operative Note ---
Date of procedure: 02/20/21 Pre-op diagnosis: TPN dependence and ESRD Post-op diagnosis: same Procedure: 1. Ultrasound guided access of the right internal jugular vein 2. Ultrasound guided access of the right internal jugular vein 3. Fluoroscopic guided placement of a 23 cm tip to cuff dual lumen hemodialysis catheter 4. Fluoroscopic guided placement of a small bore dual lumen tunneled cuffed catheter Anesthesia: local (w/ conscious sedation) Surgeon: LAXMI CHISHOLM Estimated blood loss: minimal Condition: stable Disposition: floor
[2021-02-20] MEDS: diphenhydrAMINE 50 MG/ML VIAL IV PRN (12:58)
[2021-02-20] MEDS: EPOETIN ALFA-EPBX 20,000 UNIT/1 ML VIAL IV PRN (12:58)
[2021-02-20] MEDS: HYDROmorphone 1 MG/1 ML INJ IV PRN (12:59)
--- NOTE | 2021-02-20 13:08 | Progress Note ---
Assessment and Plan Cultures: 12/22/2020 blood culture: Streptococcus bovis, Prevotella 12/22/2020 PD fluid culture: No growth 12/24/2020 tracheal aspirate culture: No growth 12/24/2020 blood culture: No growth 12/31/2020 sputum culture: No growth 02/14/2021 blood culture: Staphylococcus epidermidis 02/16/2021 blood culture: No growth A/P: 60-year-old male with ESRD on PD, Crohn's disease, CHF, gastroesophageal reflux disease was admitted to the hospital with complaints of abdominal pain and fever: #Sepsis, secondary to Staph epi bacteremia: CXR without pneumonia. ?line infection. Both lines removed on 02/16/2021. Got new lines on 02/20/2021. #Small bowel obstruction/necrotic bowel: with concern for PD associated peritonitis: Nephrology and general surgery following. Status post exploratory laparotomy on 12/23/2020 with extensive lysis, primary anastomosis, found to have necrotic segment of small bowel. PD catheter remains in place. S/p ex lap, resection of perforated anastamosis, washout and abthera wound vac placement on 01/01. Repeat CT abdomen showed no new abscesses, noted small free fluid. S/p E xploratory laparotomy, Right hemicolectomy, Peritoneal lavage, Partial omentectomy, ABThera wound VAC placement on 01/03/2021. #Streptococcus bovis bacteremia and Prevotella bacteremia: secondary to above. TTE without obvious vegetations. Repeat blood cultures negative. #ESRD: Renally dose antibiotics. Used to be on PD. On HD. 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 Seen at HD. Got both new lines placed. Objective - Exam Narrative Exam: Physical Exam: Constitutional: sleeping Head, Ears, Nose: Normocephalic, atraumatic. External ears, nose normal. Eyes: Conjunctivae/corneas clear. No icterus. No ptosis. Neck: supple Cardiovascular: S1, S2 + Respiratory: AE fair bilaterally GI: drains +, midline incision, bowel sounds + Musculoskeletal: No pedal edema, no cyanosis. R subclavian lines + Skin: No rash or abscess Hem/Lymphatic: No palpable cervical or supraclavicular nodes. No lymphangitis Psych: calm, no agitation Neurological: sleeping - Constitutional Vitals: Vital Signs Temp Pulse Resp BP Pulse Ox 98.5 F 83 18 146/77 99 02/20/21 08:06 02/20/21 08:06 02/20/21 08:06 02/20/21 08:06 02/20/21 08:06 Temperature -Last 24 Hours Temperature 98.5 F Temperature 98.9 F Temperature 99.0 F Temperature 98.5 F Temperature 97.5 F - Labs CBC & Chem 7: 02/18/21 07:39 02/20/21 07:41 Labs: Abnormal lab results 02/19/21 02/20/21 Range/Units 22:14 07:41 Sodium 128 L (137-145) mmol/L Chloride 91.0 L (98-107) mmol/L BUN 41 H (9-20) mg/dL Creatinine 11.8 H (0.8-1.3) mg/dL Glucose 103 H (75-100) mg/dL POC Glucose 119 H (70-105) mg/dL Magnesium 2.70 H (1.7-2.3) mg/dL
[2021-02-20] MEDS: MORPHINE 2 MG/1 ML INJ IV PRN (16:06)
[2021-02-20] MEDS: HEPARIN 5,000 UNIT/1 ML VIAL SUB-Q SCH ×2 (16:19→23:19)
[2021-02-20] MEDS: FAMOTIDINE 20 MG/2 ML INJ IV SCH ×2 (16:19→23:20)
[2021-02-20] MEDS ORDERED: VANCOMYCIN/NS 1 GM/250 ML 1 GM/250 ML BAG IV SCH (18:00)
[2021-02-20] MEDS ORDERED: FAT EMULSIONS 20% 250 ML IV SCH (20:00)
[2021-02-20] MEDS ORDERED: TOTAL PARENTERAL NUTRITION 2,016 ML IV SCH ×2 (20:00)
[2021-02-20] MEDS: INSULIN GLARGINE 100 UNITS/ML SUB-Q SCH (23:21)
[2021-02-20] MEDS: SCOPOLAMINE TRANSDERMAL PATCH 72 HR TD SCH (23:24)
[2021-02-21] MEDS: INSULIN LISPRO 100 UNIT/ML SUB-Q SCH ×4 (00:27→18:27)
[2021-02-21] MEDS: hydrALAZINE 20 MG/1 ML INJ IV SCH ×7 (00:29→20:33)
[2021-02-21] MEDS: DIPHENOXYLATE/ATROPINE TAB PO SCH ×3 (06:37→18:35)
[2021-02-21] MEDS: METOPROLOL TARTRATE 25 MG TAB PO SCH ×3 (06:37→20:35)
[2021-02-21 07:33] LABS: Albumin 2.8 g/dL (3.9-5); Calcium 8.6 mg/dL (8.4-10.2)
--- NOTE | 2021-02-21 08:37 | Progress Note ---
Assessment and Plan Assessment and plan: Severe Sepsis with shock Streptococcus bovis bacteremia/Prevotella bacteremia Gwendolyn albicans tracheal aspirate Small bowel obstruction/necrotic bowel s/p ex lap with extensive lysis of adhesions, 2 small bowel resections with primary anastomosis, right hemicolectomy, jejunal colonic anastomosis, segmental small bowel resection Postoperative ileus Atrial fibrillation with RVR Leukocytosis Hypochloremia Gwendolyn albicans in tracheal aspirate from 12/24 ESRD on PD, PermCath to be placed Transaminitis Systolic CHF(EF 35%) Crohn's disease Hypertension Hypokalemia and hypophosphatemia -[facility], surgery, infectious disease, nephrology, vascular surgery, cardiology consulted, appreciate recommendations -12/24 S/p ex lap with extensive expectations, 2 small bowel resections with primary anastomosis with surgery on 12/23 -s/p PICC and Permacath placement with vascular surgery on 12/27 -Extubated on 12/28, reintubated 12/31 for respiratory distress and extubated 01/08 -12/29 echocardiogram shows moderate concentric LVH, small pericardial effusion, transmitral Doppler flow pattern is grade 1 abnormal relaxation pattern, left- ventricular systolic function normal, LVEF 50 to 55%, no wall motion abnormalities. -01/01 CT abdomen/pelvis shows small pericardial effusion, mild coronary artery atherosclerotic calcification, small bilateral pleural effusions with associated volume loss, no convincing evidence of bowel obstruction or inflammation, postoperative changes from interval/recent midline laparotomy with a moderate amount of free fluid throughout the abdomen, small amount of dependent free air presumably postoperative -01/02 s/p ex lap, resection of perforated anastamosis, washout and abthera wound vac placement. -01/04 s/p ex lap with right hemicolectomy. -01/06 s/p exploratory laparotomy, Jejunal colonic anastomosis, Segmental small bowel resection. -s/p Vasopressor support with Levophed and vasopressin -Transitioned to HD from PD -HD per nephro, Epogen with HD -Strict NPO -cont TPN, Octreotide drip -s/p NGT to LIWS, now placed on G-tube for decompression - s/p rectal tube -s/p IV antibiotics -Tobacco abuse cessation counseling -Trend CBC, BMP DVT/GI prophylaxis: PPI, heparin subcu, SCDs to bilateral lower extremities while in bed Brief Course: This is a 60 YO Male with ESRD on PD, GERD, Crohn's Disease, Nicotine Dependence, HTN, Systolic CHF(EF 35%) who presented to the emergency department on 12/22 with complaints of abdominal pain which began shortly after eating fast food rated 10/10 which is periumbilical, constant, associated with fever, nausea and multiple sites of vomiting and self-reported inability to undergo PD. In the emergency room patient underwent a CT scan of the abdomen/pelvis which revealed evidence of partial small bowel obstruction, symptoms were consistent with bacterial peritonitis. Patient was admitted to the hospital service with sepsis, peritonitis, and small bowel obstruction with consults to general surgery, nephrology, infectious disease and [facility]. Daily clinical course: 12/23. Patient had temperature 101.2 F, tachycardia and elevated lactic acid on admission. Meet sepsis criteria. Started on IV antibiotics. ID has been consulted. Surgery consulted this a.m.-advised laparoscopy. He remains on NG tube connected to suction. 12/24. Patient was noted to have peritonitis yesterday and patient undergoing exploratory laparotomy. Patient remained intubated after procedure and is in ICU. Now on broad-spectrum antibiotics. ID on board. 12/25. Remains mechanically ventilated and sedated. Temp 103 Fahrenheit. Antibiotics broadened-ID added fluconazole and Flagyl. Blood cultures ordered. Plan to repeat CT abdomen tomorrow if not better. Surgery following. 12/26: Patient remains on mechanical ventilation on CMV tidal line 550, rate of 14, PEEP of 8 and 30% FiO2 and sedated on fentanyl 4 micrograms. Today we will remove his Jeffery and [facility] dropped his rate controlled him on CPAP. We will trend CBC given recent drop in H/H. 12/27: Patient remains intubated on CMV tidal volume 550, rate 12, PEEP 8 on 30% FiO2 at the time my examination. Patient's TPN will be changed to PPN. Adebayo dueñas's fentanyl drip will be changed to IV push fentanyl and have a permacath placed today and midline. Patient was placed on a spontaneous breathing trial was switched back to CMV prior to procedure. 12/28: Patient on fentanyl but awake and follows commands. At the time of my examination he was on a CPAP trial and is scheduled to receive HD today. s/o permacath and PICC placement with vascular yesterday. His blood culture grew Prevotella and addition to Streptococcus bovis. This evening Dr. Spicer attempted to extubate the patient and his heart rate went to the 180s. Stat EKG obtained and cardiology consulted. 12/29: Patient was started on amiodarone IV for A. fib RVR yesterday and today he is more rate controlled into the 70s and 80s. Patient was extubated yesterday and is currently on Ventimask. Patient will be transferred to [facility]. Patient continues to be n.p.o. with TPN and NG tube to LIS. He is hypokalemic today which was repleted. 12/30; patient was on IV amiodarone for treatment with RVR, rate is controlled. Patient was off oxygen. patient is n.p.o. and on TPN. Surgery is following the patient. 12/31: Patient was intubated overnight for respiratory distress and this morning on examination he was on assist control tidal volume 450, rate 20, PEEP 6, 100% FiO2 and RT was getting a ABG to adjust vent settings. Patient had a acute bump in WBC and per ID recommendations we will obtain a CT abdomen/pelvis if leukocytosis persist. Patient is on TPN and sedated with Levophed. Patient is also on vasopressor support with Levophed. Per surgery his ileus is resolving however will maintain OGT to LIWS. 01/01: Patient was started on a vasopressin yesterday late evening. This morning patient is on 20 mcg of Levophed and 0.03 vasopressin and sedated on 20 mcg of propofol. Patient WBC increased today and he is hypokalemic. We will treat hyperkalemia. Patient had a CT chest and abdomen/pelvis pending. The time examination total of 450, rate 20, PEEP of 6 and 35 percent FiO2. Per RN, Dr Pollock has stated that the patient will be returning to the OR today for likely anastomosis seen on CT abdomen/pelvis. 01/02: Patient noted, WBC improving, but noted to have anemia, will transfuse additional unit of Blood and repeat H/H. continue supportive care. 01/03: Continue to wean pressors, ABX PER ID, patient to return to OR today for washout and possible closure, CONTINUE TPN 01/04: Continues to show some improvement. Today is POD#12 s/p ex lap with extensive lysis of adhesions and two small bowel resections with primary anastamosis for SBO with necrotic segment small bowel. POD#3 s/p ex lap, resection of perforated anastamosis, washout and abthera wound vac placement. POD#1 s/p ex lap with right hemicolectomy. Surgery planning to take back to the OR on Saturday with the hope to anastamos ileum to transverse colon and close abdomen. keep NGT to suction. Pt in deep sedation due to open abdomen. Per ID - Continue IV Zosyn, renally dosed for Strep bacteremia treatment till 01/06/2021 -On TPN 01/05: Patient continues on HD, anticipate return to OR tomorrow for closure and anastemosis. Continues with deep sedation due to open abdomen 01/06: Continue supportive care, monitor pressures and electrolytes. He is post op Exploratory laparotomy, 2. Jejunal colonic anastomosis,3. Segmental small bowel resection and anastemosis closure today. Continue wound vac 01/07: Continue supportive care, Today is POD#15 s/p ex lap with extensive lysis of adhesions and two small bowel resections with primary anastamosis for SBO wit h necrotic segment small bowel. POD#6 s/p ex lap, resection of perforated anastamosis, washout and abthera wound vac placement. POD#4 s/p ex lap with right hemicolectomy. POD #1 exploratory laparotomy, 2. Jejunal colonic anastomosis,3. Segmental small bowel resection. Continue to monitor and sruthi ect electrolytes. Patient remains on fentanyl and TPN with lipids. Still hypoactive bowel sounds. 16: Patient now extubated, asked when he can go home, Still lethargic. Continue wound management, wound vac, Will need Rehab eval prior to discharge. 01/09: Patient remains on TPN, was started on labetalol drip per cardiology, patient had uncontrolled hypertension today however he cannot be given p.o. medications ileus resolves per surgery. Patient received hemodialysis today. NG tube remains to low intermittent suction. 01/10: Patient has some leukocytosis, slight hypokalemia and hyponatremia, metabolic acidosis. NG tube to LIWS, continue TPN. Patient will be downgraded to IMCU today. [facility] is working on placement. Will change frequency of hydralazine and discontinue labetalol drip. We will obtain a.m. BMP/mag/Phos and CBC. Infectious disease will like to start Zosyn if leukocytosis continues to worsen. 01/11: Patient leukocytosis has slightly improved potassium with in normal limits and other electrolytes are elevated but patient is scheduled for HD today. Remains on RA and A,A,Ox4. BP better controlled but remains elevated and we will increase clonidine dose. 01/12/2021; patient's blood pressure is better after dialysis and as needed IV medications and clonidine patch. Patient is followed by general surgery. Patient was alert and oriented and asked when he is going home. 01/13: Surgery is concerned about a leak at his anastamosis given increased output and will treat as controlled fistula and start an octreotide drip. And per surgery if he requires operative intervention will likely need to be left in discontinuity and eventual ileostomy as he has already failed two anastamoses. Patient still has tongue swelling and slurred speech. He is on Benadryl. 01/14: Patient's tongue swelling is improved, patient is alert and oriented, CAM ICU negative. Continue NG tube to low wall intermittent suction. Leukocytosis is improving. Hypomagnesemia resolved. Epogen with HD 01/15: Patient tongue swelling is much improved, bladder scan completed by bedside RN and he needed to be straight cathed. NGT output decreased. Leukocytosis improving. Patient has been having episodes of hypoglycemia during the day and he is on cyclic TPN, Lantus rescheduled to nightly and dosage decreased. 01/16: Continue management per ID and surgery. Will defer repeat CT of the abdomen to the team surgery has been approved by nephrology. Continue current diet and advance all to ice if okay with surgery discussed with nursing staff. 01/17: Discussed surgical recommendation of strict n.p.o. except for small amount of ice as patient has already failed to anastomosis. And risk for additional surgery with tissues were extremely friable from previous scar. He continues on octreotide drip to slow down GI output HARIS drain remains in place with NG suction for decompression. Patient verbalized understanding although stressed about being discharged. We will continue IMCU care unless otherwise advised by surgery. Prognosis remains guarded continue to monitor electrolytes considering GI output. 01/18: Continue supportive care, BP mildly elevated, continue to monitor, con tinue current therapy, if no return to PO soon may consider Increasing clonidine to 0.3, PO when ok with surgery. 01/19:Continue supportive care, Per ID continue IV Zosyn, plan to stop at 3 weeks from last surgery end date: 01/24/2021. Other management per surgery. Continue TPN. 01/20: Discussed with Surgery, will continue current management. Advised patient of the findings and plan. 01/21: Continue supportive care. Continue management per surgery advance diet when okay with surgery. Plan of care discussed with the patient in detail. 01/22: NG tube to be replaced explained to the patient why this is important. I agree with PT OT discussed with nursing staff very important to let the PT team know that they should manage HARIS drain while patient is ambulating so that he does not come out. Continue current management. Change in ocreotide to q8h and d/c drip NOTED 01/23: Continue supportive care, HD today, counselling provided to the patient on compliance with medical management 01/24: Replace NGT, Continue management per Surgery. POD 32. Mild hypokalemia noted, will replace. 01/25: Brief summary patient is a 60-year-old male admitted with abdominal pain and noted to have necrotic bowel concerning for PD associated peritonitis. Catheter was placed to convert to HD. Patient also underwent multiple surgical interventions. Initial cultures showed Streptococcus bovis bacteremia and Prevotella bacteremia a COLIN was without vegetations repeat blood cultures have b een negative. Part of the surgery is included ex lap, resection of perforated anastomosis, washout and a better wound VAC placement on 01/01. While progress has remained slow if has indeed shown some improvement. Patient is agitated about being in the hospital but understands the care management been provided his vital to his health and to prevent further surgeries. The NG tube has been pulled out 2 days ago he vehemently refused the tube being placed back but after a day of nausea with associated vomiting he was accepting of the chest tube to put back. He continues on TPN. We will continue to monitor electrolytes and correct as needed. This a.m. and erroneous blood was obtained likely from the same line as TPN repeat was done which showed normalizing factors. Patient completed antibiotics on 01/25/2020 . 01/26 Patient with severe sepsis with septic shock, small bowel obstruction, necrotic bowel s/p multiple surgeries. He complains of abdominal pain. No fever currently. He asked me when is he going home and i explained that he is not yet stable for discharge 01/27 Patient with severe sepsis with septic shock, small bowel obstruction, necrotic bowel s/p multiple surgeries. He complains of abdominal pain. No fever currently. Paroxysmal atrial fib managed by cardiology 01/28 Patient with severe sepsis with septic shock, small bowel obstruction, necrotic bowel s/p multiple surgeries. No fever currently. No abd pain currently. I discussed with Surgeon, Dr. Pollock. Continue current management. He also has paroxysmal afib, managed by Cardiology. 01/29 Patient with severe sepsis with septic shock, small bowel obstruction, necrotic bowel s/p multiple surgeries. No fever currently. No abd pain currently. I discussed with Surgeon, Dr. Pollock, yesterday. Continue current management. He also has paroxysmal afib, managed by Cardiology. He is on Metoprolol, Digoxin, Clonidine 01/30 Patient with severe sepsis with septic shock, small bowel obstruction, n ecrotic bowel s/p multiple surgeries. Patient is a 60-year-old male admitted with abdominal pain and noted to have necrotic bowel concerning for PD associated peritonitis. Catheter was placed to convert to HD. Patient also underwent multiple surgical interventions. Initial cultures showed Strep tococcus bovis bacteremia and Prevotella bacteremia a COLIN was without vegetations repeat blood cultures have been negative. Part of the surgery is included ex lap, resection of perforated anastomosis, washout and a better wound VAC placement on 01/01. While progress has remained slow if has indeed shown some improvement. Patient is agitated about being in the hospital but understands the care management been provided his vital to his health and to prevent further surgeries. He continues on TPN. No fever currently. Less abdominal pain. Discussed with Surgeon, Dr. Pollock, few days ago. Continue current management. He also has paroxysmal afib, managed by Cardiology. He is on Metoprolol, D igoxin, Clonidine. ESRD on dialysis managed by Nephrology. 01/31: Continue HARIS drain suction. Ongoing treatment for anastomotic leak/controlled low output fistula. Maintain LIWS to NGT and monitor output. continue q 8h ocreotide. cont TPN. Defer to general surgery for NG tube discontinuation. 02/01: planned for g-tube placement for gastric decompression. Removed NG tube today. S/p HD -tolerated well : Status post G-tube placement today, resume TPN, patient is off from rectal tube. Continue supportive care and follow general surgery recommendation for discharge planning. Hemodialysis per schedule 02/03 -02/05: cont TPN, G-tube suction, Continue supportive care and follow general surgery recommendation for discharge planning. Hemodialysis per schedule. 02/06: Per surgery Anastamotic leak slowing down and is a controlled fistula. Continue HARIS drain suction. Since HARIS drain has continued to stay about 10ml over the last several days, plan to continue lower dose of octreotide. continue g-tube to drainage for decompression. continue clear liquids and closely monitor HARIS drain output. patient need LTAC placement. Continue to replace electrolytes and monitor phosphate level 02/07/2021; Per surgery Anastamotic leak slowing down and is a controlled fistula. Continue HARIS drain suction. Since HARIS drain has continued to stay about 10ml over the last several days, plan to continue lower dose of octreotide. continue g-tube to drainage for decompression. continue clear liquids and closely monitor HARIS drain output. patient need LTAC placement. Continue to replace electrolytes and monitor phosphate level. 02/08/2021; patient need to be transferred to LTAC. Patient expressed he wants to go home. 02/09/2021; pending LTAC placement 02/10/2021; pending LTAC placement 02/11/2021;case management continues to find a place to take him. General surgery is considering to discharge him home with home health, home TPN. 02/12/2021; patient expressed to go home. Put a consult for case management to arrange home health and home TPN. 02/13/2021; patient does not want to go to rehab or LTAC. I have discussed with case management about the option of getting home health and home PPN. Case management is working on it. 02/14: Patient now with fever Tmax 101.7, has been low grade prior, will recheck per my discussion with nursing staff. Will check CBC, Procalcitonin, blood clutu res, chest xray. Patient is a dialysis patient and has PICC line. From my understanding not returning blood. Will need to check integrity of the line. Nurse to call PICC team. Will like to monitor 24 hrs prior to planned discharge. Understand patient is still on TPN. 02/15: Recurrent spesis, in patient with mulitiple line and TPN, input from ID - f/u blood cultures. PER ID - continue empiric renally dosed Cefepime + Vancomycin + Flagyl + Micafungin (has indwelling lines and has been on TPN) - if no source is identified, may need abdominal imaging with CT with contrast coordinated with dialysis No new FEVER TODAY Continue supportive care. 02/16: Patient seen and examined, 4/4 Bottles positive GPC, ID input noted. Discussed with group rooms coordinator, vascular and the patient, all central lines will be removed following HD today. Continue antibiotics. 02/17/21 patient seen and examined. No new complain. Blood culture is positive for GPC. Repeat blood cultures ordered. Continue IV vancomycin. Continue current management. HD as per nephrology. Infectious disease follow-up. Recheck CBC BMP in the morning. 02/18/21 patient seen and examined. Patient feels better. No new complain. WBC 6.7. Hemoglobin 7.4. Blood culture from 02/14/2021 showed staph epidermidis. Most likely contamination we will follow the repeat blood culture. Continue IV vancomycin. Possible permacath placement on 02/20/2021 for hemodialysis. Infectious disease follow-up. Continue TPN. Recheck CBC BMP in the morning. 02/19: Patient changed to PPN till line re-established for TPN. Continue current management, discussed with nursing staff at bedside 02/20: Patient clinically stable, he is for line placement, he had a run of vtach yesterday, Magnesium replacement was done and will recheck, cardiology consulted. continue abx, discharge when cleared by ID. 02/21/2021; pending subacute rehab placement. Case management is following the patient. History Interval history: Patient was seen and evaluated this morning Patient on TPN, tolerated clear liquid diet HARIS tube in place Hospitalist Physical - Physical exam Narrative exam: Patient was not in cardiopulmonary distress The patient appeared well nourished and normally developed. Vital signs as documented. Head exam is unremarkable. No scleral icterus . Neck is without jugular venous distension, thyromegaly, or carotid bruits. Lungs are clear to auscultation. Cardiac exam reveals regular rate and Rhythm. Abdominal exam reveals clean midline surgical laparatomy wound. HARIS tube in place Extremities are nonedematous and both femoral and pedal pulses are normal. COATING OPERATOR: Alert and oriented 3. No focal weakness. - Constitutional Vitals: Temp Pulse Resp BP Pulse Ox 98.7 F 94 H 18 153/78 99 02/21/21 07:55 02/21/21 07:55 02/21/21 07:55 02/21/21 07:55 02/21/21 07:55 General appearance: Present: no acute distress HEART Score - HEART Score Troponin: Troponin T 0.021 ng/mL (0.00-0.029) 12/22/20 14:38 Results - Labs CBC & Chem 7: 02/18/21 07:39 02/21/21 07:00 Labs: Laboratory Last Values WBC 6.7 K/mm3 (4.5-11.0) 02/18/21 07:39 RBC 2.38 M/mm3 (3.65-5.03) L 02/18/21 07:39 Hgb 7.4 gm/dl (11.8-15.2) L 02/18/21 07:39 Hct 21.7 % (35.5-45.6) L 02/18/21 07:39 MCV 91 fl (84-94) 02/18/21 07:39 MCH 31 pg (28-32) 02/18/21 07:39 MCHC 34 % (32-34) 02/18/21 07:39 RDW 16.9 % (13.2-15.2) H 02/18/21 07:39 Plt Count 183 K/mm3 (140-440) 02/18/21 07:39 Lymph % (Auto) 9.8 % (13.4-35.0) L 02/18/21 07:39 Kidder % (Auto) 12.2 % (0.0-7.3) H 02/18/21 07:39 Eos % (Auto) 3.4 % (0.0-4.3) 02/18/21 07:39 Baso % (Auto) 0.3 % (0.0-1.8) 02/18/21 07:39 Lymph # (Auto) 0.7 K/mm3 (1.2-5.4) L 02/18/21 07:39 Kidder # (Auto) 0.8 K/mm3 (0.0-0.8) 02/18/21 07:39 Eos # (Auto) 0.2 K/mm3 (0.0-0.4) 02/18/21 07:39 Baso # (Auto) 0.0 K/mm3 (0.0-0.1) 02/18/21 07:39 Add Manual Diff Complete 02/14/21 09:24 Total Counted 100 02/14/21 09:24 Seg Neutrophils % 74.3 % (40.0-70.0) H 02/18/21 07:39 Seg Neuts % (Manual) 91.0 % (40.0-70.0) H 02/14/21 09:24 Band Neutrophils % 1.0 % 02/14/21 09:24 Lymphocytes % (Manual) 6.0 % (13.4-35.0) L 02/14/21 09:24 Reactive Lymphs % (Man) 1.0 % 12/29/20 05:16 Monocytes % (Manual) 2.0 % (0.0-7.3) 02/14/21 09:24 Eosinophils % (Manual) 2.0 % (0.0-4.3) 12/29/20 05:16 Metamyelocytes % 2.0 % 12/29/20 05:16 Nucleated RBC % Not Reportable 02/14/21 09:24 Seg Neutrophils # 4.9 K/mm3 (1.8-7.7) 02/18/21 07:39 Seg Neutrophils # Man 16.6 K/mm3 (1.8-7.7) H 02/14/21 09:24 Band Neutrophils # 0.2 K/mm3 02/14/21 09:24 Lymphocytes # (Manual) 1.1 K/mm3 (1.2-5.4) L 02/14/21 09:24 Abs React Lymphs (Man) 0.0 K/mm3 02/14/21 09:24 Monocytes # (Manual) 0.4 K/mm3 (0.0-0.8) 02/14/21 09:24 Eosinophils # (Manual) 0.0 K/mm3 (0.0-0.4) 02/14/21 09:24 Basophils # (Manual) 0.0 K/mm3 (0.0-0.1) 02/14/21 09:24 Metamyelocytes # 0.0 K/mm3 02/14/21 09:24 Myelocytes # 0.0 K/mm3 02/14/21 09:24 Promyelocytes # 0.0 K/mm3 02/14/21 09:24 Blast Cells # 0.0 K/mm3 02/14/21 09:24 WBC Morphology Not Reportable 02/14/21 09:24 Hypersegmented Neuts Not Reportable 02/14/21 09:24 Hyposegmented Neuts Not Reportable 02/14/21 09:24 Hypogranular Neuts Not Reportable 02/14/21 09:24 Smudge Cells Not Reportable 02/14/21 09:24 Toxic Granulation Not Reportable 02/14/21 09:24 Toxic Vacuolation Not Reportable 02/14/21 09:24 Dohle Bodies Not Reportable 02/14/21 09:24 Pelger-Huet Anomaly Not Reportable 02/14/21 09:24 Lamar Rods Not Reportable 02/14/21 09:24 Platelet Estimate Consistent w auto 02/14/21 09:24 Clumped Platelets Not Reportable 02/14/21 09:24 Plt Clumps, EDTA Not Reportable 02/14/21 09:24 Large Platelets Rare 02/14/21 09:24 Giant Platelets Not Reportable 02/14/21 09:24 Platelet Satelliting Not Reportable 02/14/21 09:24 Plt Morphology Comment Not Reportable 02/14/21 09:24 RBC Morphology Not Reportable 02/14/21 09:24 Dimorphic RBCs Not Reportable 02/14/21 09:24 Polychromasia Few 02/14/21 09:24 Hypochromasia Not Reportable 02/14/21 09:24 Poikilocytosis Not Reportable 02/14/21 09:24 Anisocytosis 1+ 02/14/21 09:24 Microcytosis Not Reportable 02/14/21 09:24 Macrocytosis Not Reportable 02/14/21 09:24 Spherocytes Not Reportable 02/14/21 09:24 Pappenheimer Bodies Not Reportable 02/14/21 09:24 Sickle Cells Not Reportable 02/14/21 09:24 Target Cells Not Reportable 02/14/21 09:24 Tear Drop Cells Few 02/14/21 09:24 Ovalocytes Not Reportable 02/14/21 09:24 Helmet Cells Not Reportable 02/14/21 09:24 [place] Bodies Not Reportable 02/14/21 09:24 [place] Rings Not Reportable 02/14/21 09:24 [place] Cells Not Reportable 02/14/21 09:24 Bite Cells Not Reportable 02/14/21 09:24 Crenated Cell Not Reportable 02/14/21 09:24 Elliptocytes Not Reportable 02/14/21 09:24 Acanthocytes (Spur) Not Reportable 02/14/21 09:24 Rouleaux Not Reportable 02/14/21 09:24 Hemoglobin C Crystals Not Reportable 02/14/21 09:24 Schistocytes Not Reportable 02/14/21 09:24 Malaria parasites Not Reportable 02/14/21 09:24 [place] Bodies Not Reportable 02/14/21 09:24 Hem Pathologist Commnt No 02/14/21 09:24 PT 16.9 Sec. (12.2-14.9) H 01/01/21 12:45 INR 1.39 (0.87-1.13) H 01/01/21 12:45 APTT 25.1 Sec. (24.2-36.6) 12/22/20 14:38 ABG pH 7.345 pH Units (7.350-7.450) L 01/07/21 17:14 POC ABG pCO2 41.4 mmHg (32.0-48.0) 01/07/21 03:07 ABG pCO2 40.3 mm Hg 01/07/21 17:14 POC ABG pO2 94.5 mmHg (83-108) 01/07/21 03:07 ABG pO2 67.4 mm Hg (80.0-90.0) L 01/07/21 17:14 POC ABG HCO3 22.7 01/07/21 03:07 ABG HCO3 21.5 mmol/L (20.0-26.0) 01/07/21 17:14 ABG O2 Saturation 94.3 % (95.0-99.0) L 01/07/21 17:14 ABG O2 Content 11.6 (0.0-44) 01/07/21 17:14 POC ABG Base Excess -2.7 01/07/21 03:07 ABG Base Excess -3.9 mmol/L (-2.0-3.0) L 01/07/21 17:14 ABG Hemoglobin 8.9 gm/dl (14.0-18.0) L 01/07/21 17:14 ABG Oxyhemoglobin 96.6 (94-98) 01/07/21 03:07 ABG Carboxyhemoglobin 1.5 % (0.0-5.0) 01/07/21 17:14 ABG Methemoglobin 0.6 % (0.0-1.5) 01/07/21 17:14 ABG Sodium 135.6 mmol/L (136.0-145.0) L 01/07/21 03:07 ABG Potassium 4.0 mmol/L (3.40-4.50) 01/07/21 03:07 ABG Chloride 102.0 mmol/L (98-107) 01/07/21 03:07 ABG Glucose 181 mg/dL (65-95) H 01/07/21 03:07 Oxyhemoglobin 92.3 % (95.0-99.0) L 01/07/21 17:14 Carboxyhemoglobin 0.7 (0.5-1.5) 01/07/21 03:07 FiO2 21 % 01/07/21 17:14 FiO2 % 45.0 01/07/21 03:07 Sodium 133 mmol/L (137-145) L 02/21/21 07:00 Potassium 3.6 mmol/L (3.6-5.0) 02/21/21 07:00 Chloride 95.3 mmol/L (98-107) L 02/21/21 07:00 Carbon Dioxide 28 mmol/L (22-30) 02/21/21 07:00 Anion Gap 13 mmol/L 02/21/21 07:00 BUN 18 mg/dL (9-20) 02/21/21 07:00 Creatinine 7.1 mg/dL (0.8-1.3) H 02/21/21 07:00 Estimated GFR 10 ml/min 02/21/21 07:00 BUN/Creatinine Ratio 3 % 02/21/21 07:00 Glucose 94 mg/dL (75-100) 02/21/21 07:00 POC Glucose 97 mg/dL (70-105) 02/21/21 06:06 Lactic Acid 1.70 mmol/L (0.7-2.0) 02/14/21 09:24 Calcium 8.6 mg/dL (8.4-10.2) 02/21/21 07:00 Phosphorus 3.60 mg/dL (2.5-4.5) 02/21/21 07:00 Magnesium 2.20 mg/dL (1.7-2.3) 02/21/21 07:00 Iron 39 ug/dL (49-181) L 02/16/21 15:23 TIBC 154 mcg/dL (250-450) L 02/16/21 15:23 % Saturation 25.32 % 02/16/21 15:23 Transferrin 134 mg/dl (180-329) L 02/16/21 15:23 Ferritin 4086.0 ng/mL (30.0-300.0) H 02/16/21 15:23 Total Bilirubin 0.70 mg/dL (0.1-1.2) 02/21/21 07:00 AST 18 units/L (5-40) 02/21/21 07:00 ALT 10 units/L (7-56) 02/21/21 07:00 Alkaline Phosphatase 129 units/L (35-129) 02/21/21 07:00 Ammonia 30.0 umol/L (25-60) 12/22/20 14:38 Troponin T 0.021 ng/mL (0.00-0.029) 12/22/20 14:38 Total Protein 5.7 g/dL (6.3-8.2) L 02/21/21 07:00 Albumin 2.8 g/dL (3.9-5) L 02/21/21 07:00 Albumin/Globulin Ratio 1.0 % 02/21/21 07:00 Triglycerides 72 mg/dL (2-149) 01/30/21 04:15 Lipase 41 units/L (13-60) 12/22/20 14:38 Procalcitonin 27.86 ng/mL (<0.15) 02/14/21 09:24 TSH 1.470 mlU/mL (0.270-4.200) 12/28/20 19:44 Arterial Blood Glucose 181 mg/dL (65-95) H 01/07/21 03:07 Arterial Blood Ionized Calcium 4.3 mg/dL (4.6-5.3) L 01/07/21 03:07 Urine Color Yellow (Yellow) 12/22/20 18:53 Urine Turbidity Clear (Clear) 12/22/20 18:53 Urine pH 7.0 (5.0-7.0) 12/22/20 18:53 Ur Specific [place] 1.012 (1.003-1.030) 12/22/20 18:53 Urine Protein >500 mg/dL (Negative) 12/22/20 18:53 Urine Glucose (UA) Neg mg/dL (Negative) 12/22/20 18:53 Urine Ketones Neg mg/dL (Negative) 12/22/20 18:53 Urine Blood Neg (Negative) 12/22/20 18:53 Urine Nitrite Neg (Negative) 12/22/20 18:53 Urine Bilirubin Neg (Negative) 12/22/20 18:53 Urine Urobilinogen < 2.0 mg/dL (<2.0) 12/22/20 18:53 Ur Leukocyte Esterase Neg (Negative) 12/22/20 18:53 Urine WBC (Auto) < 1.0 /HPF (0.0-6.0) 12/22/20 18:53 Urine RBC (Auto) 1.0 /HPF (0.0-6.0) 12/22/20 18:53 Fluid Type Dialysate 12/22/20 Unknown Fluid Color Colorless 12/22/20 Unknown Fluid Appearance Cloudy 12/22/20 Unknown Fluid WBC 208 /mm3 12/22/20 Unknown Fluid RBC 45 /mm3 12/22/20 Unknown Fluid Seg Neutrophils 82.0 % 12/22/20 Unknown Fluid Lymphocytes 11.0 % 12/22/20 Unknown Fluid Reactive Lymphs 0 % 12/22/20 Unknown Fluid Monocytes 7.0 % 12/22/20 Unknown Fluid Eosinophils 0 % 12/22/20 Unknown Fluid Basophils 0 % 12/22/20 Unknown Random Vancomycin 17.3 ug/mL (0-40.0) 02/20/21 07:41 Digoxin 0.9 ng/mL (0.9-2.0) 02/04/21 05:40 Coronavirus (PCR) Negative (Negative) 02/13/21 Unknown Hepatitis A IgM Ab Non-reactive (NonReactive) 02/02/21 12:41 Hep Bs Antigen Non-reactive (Negative) 02/02/21 12:41 Hep B Core IgM Ab Non-reactive (NonReactive) 02/02/21 12:41 Hepatitis C Antibody Non-reactive (NonReactive) 02/02/21 12:41 Blood Type A POSITIVE 01/06/21 07:10 Antibody Screen Negative 01/06/21 07:10 Crossmatch See Detail 01/06/21 07:10 Microbiology: Microbiology 02/16/21 15:43 Peripheral/Venous Blood Culture - Preliminary NO GROWTH AFTER 4 DAYS 02/16/21 15:23 Peripheral/Venous Blood Culture - Preliminary NO GROWTH AFTER 4 DAYS Jeffery/IV: Voiding Method Bedside Commode Active Medications - Current Medications Current Medications: Generic Name Dose Route Start Last Admin Trade Name Freq PRN Reason Stop Dose Admin Acetaminophen 650 mg 02/14/21 09:00 02/14/21 16:34 Acetaminophen 325 Mg Tab PO 650 mg Q6H PRN Administration Pain, Mild (1-3) Clonidine HCl 0.2 mg 01/11/21 10:00 02/15/21 11:36 Clonidine Tts 0.2 Mg/24 Hr Patch TD Not Given We THOMAS Dextrose 50 ml 01/14/21 17:59 01/18/21 15:10 Dextrose 50% In Water (25gm) 50 Ml Syringe IV 20 ml Q30MIN PRN Administration Hypoglycemia Protocol Diphenhydramine HCl 50 mg 01/20/21 10:10 02/20/21 12:58 Diphenhydramine 50 Mg/Ml Vial IV 50 mg Q6H PRN Administration Itching Diphenoxylate HCl/Atropine 1 tab 02/06/21 18:00 02/21/21 06:37 Diphenoxylate/Atropine Tab PO 1 tab Q6H THOMAS Administration Famotidine 10 mg 12/24/20 13:00 02/20/21 23:20 Famotidine 20 Mg/2 Ml Inj IV 10 mg BID THOMAS Administration Fluticasone Propionate 50 mcg 02/07/21 10:00 02/19/21 12:58 Fluticasone Propionate Nasal [place] 16 Gm NS 50 mcg QDAY THOMAS Administration Haloperidol Lactate 5 mg 12/29/20 14:16 01/22/21 23:56 Haloperidol Lactate 5 Mg/1 Ml Inj IV 5 mg Q12H PRN Administration Agitation Heparin Sodium (Porcine) 5,000 unit 12/24/20 10:00 02/20/21 23:19 Heparin 5,000 Unit/1 Ml Vial SUB-Q 5,000 unit Q12HR THOMAS Administration Hydralazine HCl 10 mg 01/10/21 14:00 02/21/21 06:36 Hydralazine 20 Mg/1 Ml Inj IV 10 mg Q4HR THOMAS Administration Hydrocortisone Acetate 1 applic 02/01/21 18:43 Hydrocortisone 1% Cream 28.4gm TP Q8H PRN Skin Irritation Hydromorphone HCl 0.25 mg 01/09/21 10:53 02/20/21 12:59 Hydromorphone 1 Mg/1 Ml Inj IV 0.25 mg Q6H PRN Administration Pain , Severe (7-10) Sodium Chloride 100 mls @ 999 mls/hr 02/16/21 10:00 Nacl 0.9% IV [place] PRN Hypotension Amino Acids/Electrolytes/Dextrose 2,016 mls @ 84 mls/hr 02/20/21 20:00 02/20/21 20:46 Tpn Adult IV 02/21/21 19:59 84 mls/hr [email or web address] [email or web address] Administration Protocol Vancomycin HCl 1 gm in 250 mls @ 167.007 mls/hr 02/20/21 18:00 02/20/21 17:07 Vancomycin/Ns 1 Gm/250 Ml IV 02/23/21 17:59 167.007 mls/hr [email or web address] [facility] Administration Insulin Glargine 5 units 01/18/21 22:00 02/20/21 23:21 Insulin Glargine 100 Units/Ml SUB-Q 5 units QHS THOMAS Administration Insulin Human Lispro 0 unit 01/03/21 12:00 02/21/21 08:17 Insulin Lispro 100 Unit/Ml SUB-Q Not Given Q6HR [facility] Protocol Loperamide HCl 2 mg 02/19/21 14:39 02/20/21 23:18 Loperamide 2 Mg Cap PO 2 mg Q2H PRN Administration Diarrhea Metoprolol Tartrate 25 mg 02/14/21 14:00 02/21/21 06:37 Metoprolol Tartrate 25 Mg Tab PO 25 mg Q8HR THOMAS Administration Morphine Sulfate 2 mg 02/02/21 12:00 02/20/21 16:06 Morphine 2 Mg/1 Ml Inj IV 2 mg Q3H PRN Administration Pain, Moderate (4-6) Ondansetron HCl 4 mg 01/25/21 11:56 02/16/21 07:06 Ondansetron 4 Mg/2 Ml Inj IV 4 mg Q4H PRN Administration Nausea And Vomiting Scopolamine 1 each 01/15/21 11:00 02/20/21 23:24 Scopolamine Transdermal Patch 72 Hr TD 1 each Q3D THOMAS Administration Sodium Chloride 10 ml 12/22/20 22:00 02/20/21 23:20 Sodium Chloride 0.9% 10 Ml Flush Syringe IV 10 ml BID THOMAS Administration Nutrition/Malnutrition Assess - Dietary Evaluation Nutrition/Malnutrition Findings: Nutrition Notes Start: 12/24/20 12:36 Freq: Status: Active Protocol: Document 02/20/21 10:42 MK (Rec: 02/20/21 10:46 MK [email or web address]) Nutrition Notes Initial or Follow up Reassessment Current Diagnosis CKD (stage V CKD),Sepsis, Hypertension,Heart Failure, Small Bowel Obstruction Other Pertinent Diagnosis onHD, s/p exp lap, s/p bowel resections, afib Current Diet CPN at 84 ml/hr + NPO Labs/Tests No new labs Pertinent Medications Imodium (02/19) Mg sulfate 2 gm Height 5 ft 7 in Weight 86 kg [place] Body Weight (kg) 67.27 BMI 29.7 Weight Status Appropriate Subjective/Other Information Day 57 PPN. Pt not in room at time of visit. Per chart, pt getting PICC today. Will leave Mg in PPN the same as yesterday because as MD repleated it yesterday. Percent of energy/protein needs met: 35%/57% Burn Absent Trauma Absent Current % PO Negligible #2 Nutrition Diagnosis Increased nutrient needs ( specify in comment below) Diagnosis Progress(for reassessment Continues documentation) #1 Nutrition Diagnosis Inadequate oral intake Diagnosis Progress(for reassessment Continues documentation) Is patient on ventilator? No Is Patient Ambulatory and/or Out of Bed Yes REE-([facility]-ambulatory/OOB) [ [id number] [id number]] Calculation Used for Recommendations [facility] Additional Notes Pro needs 1.2-1.3g/k- 109g/day Fluid needs per MD. Nutrition Intervention Change Diet Order: Continue PPN Nutrition Support: Change to PPN at 84 ml/hr/ MVI , Lipids; Osm 899 mosm; Kcal 1,242 Protein (gm) 58 Carbohydrates (gm) 150 Fat (gm) 50 Fluid (mL) 2,266 Fiber (gm) 0 Goal #1 Meet needs as best as possible via PPN Follow-Up By: 02/21/21 Additional Comments Labs in AM: CMP, Mg, Phos FU for IV line access
--- NOTE | 2021-02-21 09:01 | Progress Note ---
Assessment and Plan Assessment: * ESRD previouaslyon peritoneal dialysis; now on back up HD (on peritoneal dialysis for 2 years ) * Small bowel obstruction --s/p ex-lap with jejuno-ileal anastamosis --s/p ex lap with extensive lysis of adhesions and two small bowel resections with primary anastamosis for SBO with necrotic segment small bowel. --s/p ex lap, resection of perforated anastamosis, washout and abthera wound vac placement. --s/p ex lap with right hemicolectomy. * Staph epi bacteremia * Septic shock - resolved * Hyperkalemia * Anemia of ESRD * Post op ileus * Paroxysmal atrial fibrillation * Hx of nonischemic cardiomyopathy, resolving --LVEF 50-55% by echo this presentation Plan: * Permcath removed on 02/16/2021 (following HD) due to bacteremia. Surveillance cultures now negative * Status post new PermCath insertion 02/20/2021 * Continue dialysis on MWF schedule * Epogen w/ dialysis -20k * Abx per primary team * Rate control per cardiology * Nutrition per primary team - currently receiving TPN/PPN due to inability to use GI tract * Maintatin MAP >65 * Discharge planning in progress Subjective Date of service: 02/21/21 Principal diagnosis: Ac hypoxemic resp failure; Severe Sepsis; Peritonitis; Acute SBO; ESRD; CHF Interval history: Patient is comfortable today. Denies any shortness of breath. No nausea or vomiting. Status post PermCath insertion yesterday and uneventful hemodialysis thereafter Objective - Vital Signs Vital signs: Vital Signs - 12hr 02/20/21 02/20/21 02/21/21 23:21 23:23 00:17 Temperature 99.0 F Pulse Rate 84 Respiratory 18 Rate Blood Pressure 141/105 141/103 162/84 Blood Pressure [Right] O2 Sat by Pulse 95 Oximetry 02/21/21 02/21/21 02/21/21 01:40 04:28 06:36 Temperature 98.7 F Pulse Rate 92 H 92 H Respiratory 18 Rate Blood Pressure 164/100 155/77 155/77 Blood Pressure [Right] O2 Sat by Pulse 96 Oximetry 02/21/21 02/21/21 06:37 07:55 Temperature 98.7 F Pulse Rate 94 H Respiratory 18 Rate Blood Pressure 155/77 Blood Pressure 153/78 [Right] O2 Sat by Pulse 99 Oximetry - General Appearance General appearance: well-developed, well-nourished, appears stated age EENT: PERRL, mucous membranes moist Neck: no JVD, no thyromegaly, other (Right IJ PermCath in place) Respiratory: Present: Clear to Ascultation Cardiology: regular, normal heart rate Gastrointestinal: other (Midline dressing noted. Bowel sounds present) Integumentary: other (No edema) - Lab 02/18/21 07:39 02/21/21 07:00 Most recent lab results ABG pH 7.345 pH Units (7.350-7.450) L 01/07/21 17:14 ABG pCO2 40.3 mm Hg 01/07/21 17:14 ABG pO2 67.4 mm Hg (80.0-90.0) L 01/07/21 17:14 ABG HCO3 21.5 mmol/L (20.0-26.0) 01/07/21 17:14 ABG O2 Saturation 94.3 % (95.0-99.0) L 01/07/21 17:14 Calcium 8.6 mg/dL (8.4-10.2) 02/21/21 07:00 Phosphorus 3.60 mg/dL (2.5-4.5) 02/21/21 07:00 Magnesium 2.20 mg/dL (1.7-2.3) 02/21/21 07:00 Medications & Allergies - Medications Allergies/Adverse Reactions: Allergies No Known Allergies Allergy (Verified 06/09/20 15:27) Home Medications: Home Medications Medication Instructions Recorded Confirmed Last Taken Type Albuterol Mdi (or & Nicu Only) 2 puff IH QID PRN #1 inhalation 04/01/17 02/05/21 10/31/20 09:00 Rx [ProAir HFA Inhaler] Calcium Acetate 667 mg PO DAILY 04/20/20 02/05/21 10/31/20 09:00 History Centrum Men's Tablet 1 tab PO DAILY 04/20/20 02/05/21 10/31/20 09:00 History Cinacalcet 30 mg PO DAILY 04/20/20 02/05/21 10/31/20 09:00 History Dialyvite with Zinc Tablet 1 tab PO DAILY 04/20/20 02/05/21 10/31/20 09:00 History Magnesium 250 mg PO BID 04/20/20 02/05/21 10/31/20 17:00 History Triamcinolone 0.1% 1 1000units TRANSDERMA DAILY 04/20/20 02/05/21 10/31/20 09:00 History Vit B12/Folic Acid/B6/Aa No.15 1,000 mg PO DAILY 04/20/20 02/05/21 10/31/20 09:00 History amLODIPine 10 mg PO DAILY 06/09/20 02/05/21 10/31/20 09:00 History AtorvaSTATin 40 mg PO HS 11/01/20 02/05/21 10/31/20 21:00 History Benadryl 25 mg PO HS 11/01/20 02/05/21 10/31/20 21:00 History Diclofenac 1 applic TRANSDERMA QID 11/01/20 02/05/21 10/31/20 19:00 History Fluticasone Propionate 1 spray INTRANASAL DAILY 11/01/20 02/05/21 10/31/20 09:00 History Vitamin D3 2,000 units PO QDAY 11/01/20 02/05/21 10/31/20 09:00 History carvediloL 12.5 mg PO DAILY 11/01/20 02/05/21 10/31/20 09:00 History hydrALAZINE 100 mg PO TID 11/01/20 02/05/21 10/31/20 19:00 History Active Medications: Generic Name Dose Route Start Last Admin Trade Name Freq PRN Reason Stop Dose Admin Acetaminophen 650 mg 02/14/21 09:00 02/14/21 16:34 Acetaminophen 325 Mg Tab PO 650 mg Q6H PRN Administration Pain, Mild (1-3) Clonidine HCl 0.2 mg 01/11/21 10:00 02/15/21 11:36 Clonidine Tts 0.2 Mg/24 Hr Patch TD Not Given We THOMAS Dextrose 50 ml 01/14/21 17:59 01/18/21 15:10 Dextrose 50% In Water (25gm) 50 Ml Syringe IV 20 ml Q30MIN PRN Administration Hypoglycemia Protocol Diphenhydramine HCl 50 mg 01/20/21 10:10 02/20/21 12:58 Diphenhydramine 50 Mg/Ml Vial IV 50 mg Q6H PRN Administration Itching Diphenoxylate HCl/Atropine 1 tab 02/06/21 18:00 02/21/21 06:37 Diphenoxylate/Atropine Tab PO 1 tab Q6H THOMAS Administration Famotidine 10 mg 12/24/20 13:00 02/20/21 23:20 Famotidine 20 Mg/2 Ml Inj IV 10 mg BID THOMAS Administration Fluticasone Propionate 50 mcg 02/07/21 10:00 02/19/21 12:58 Fluticasone Propionate Nasal [place] 16 Gm NS 50 mcg QDAY THOMAS Administration Haloperidol Lactate 5 mg 12/29/20 14:16 01/22/21 23:56 Haloperidol Lactate 5 Mg/1 Ml Inj IV 5 mg Q12H PRN Administration Agitation Heparin Sodium (Porcine) 5,000 unit 12/24/20 10:00 02/20/21 23:19 Heparin 5,000 Unit/1 Ml Vial SUB-Q 5,000 unit Q12HR THOMAS Administration Hydralazine HCl 10 mg 01/10/21 14:00 02/21/21 06:36 Hydralazine 20 Mg/1 Ml Inj IV 10 mg Q4HR THOMAS Administration Hydrocortisone Acetate 1 applic 02/01/21 18:43 Hydrocortisone 1% Cream 28.4gm TP Q8H PRN Skin Irritation Hydromorphone HCl 0.25 mg 01/09/21 10:53 02/20/21 12:59 Hydromorphone 1 Mg/1 Ml Inj IV 0.25 mg Q6H PRN Administration Pain , Severe (7-10) Sodium Chloride 100 mls @ 999 mls/hr 02/16/21 10:00 Nacl 0.9% IV [place] PRN Hypotension Amino Acids/Electrolytes/Dextrose 2,016 mls @ 84 mls/hr 02/20/21 20:00 02/20/21 20:46 Tpn Adult IV 02/21/21 19:59 84 mls/hr [email or web address] [facility] Administration Protocol Vancomycin HCl 1 gm in 250 mls @ 167.007 mls/hr 02/20/21 18:00 02/20/21 17:07 Vancomycin/Ns 1 Gm/250 Ml IV 02/23/21 17:59 167.007 mls/hr [email or web address] [facility] Administration Insulin Glargine 5 units 01/18/21 22:00 02/20/21 23:21 Insulin Glargine 100 Units/Ml SUB-Q 5 units QHS THOMAS Administration Insulin Human Lispro 0 unit 01/03/21 12:00 02/21/21 08:17 Insulin Lispro 100 Unit/Ml SUB-Q Not Given Q6HR [facility] Protocol Loperamide HCl 2 mg 02/19/21 14:39 02/20/21 23:18 Loperamide 2 Mg Cap PO 2 mg Q2H PRN Administration Diarrhea Metoprolol Tartrate 25 mg 02/14/21 14:00 02/21/21 06:37 Metoprolol Tartrate 25 Mg Tab PO 25 mg Q8HR [facility] Administration Morphine Sulfate 2 mg 02/02/21 12:00 02/20/21 16:06 Morphine 2 Mg/1 Ml Inj IV 2 mg Q3H PRN Administration Pain, Moderate (4-6) Ondansetron HCl 4 mg 01/25/21 11:56 02/16/21 07:06 Ondansetron 4 Mg/2 Ml Inj IV 4 mg Q4H PRN Administration Nausea And Vomiting Scopolamine 1 each 01/15/21 11:00 02/20/21 23:24 Scopolamine Transdermal Patch 72 Hr TD 1 each Q3D THOMAS Administration Sodium Chloride 10 ml 12/22/20 22:00 02/20/21 23:20 Sodium Chloride 0.9% 10 Ml Flush Syringe IV 10 ml BID THOMAS Administration
--- NOTE | 2021-02-21 10:14 | Progress Note ---
Assessment and Plan This is a 60 YO Male with ESRD on PD, GERD, Crohn's Disease, Nicotine Dependence, HTN, Systolic CHF(EF 35%) who presented to the emergency department on 12/22 with complaints of abdominal pain which began shortly after eating fast food rated 10/10 which is periumbilical, constant, associated with fever, nausea and multiple sites of vomiting and self-reported inability to undergo PD. In the emergency room patient underwent a CT scan of the abdomen/pelvis which revealed evidence of partial small bowel obstruction, symptoms were consistent with bacterial peritonitis. Patient was admitted to the hospital service with sepsis, peritonitis, and small bowel obstruction with consults to general surgery, nephrology, infectious disease and [facility]. On 01/06/21 the patient underwent an exploratory laparotomy, jejunal colonic anastomosis, and segmental small bowel resection. ABG's (01/07/21): pH 7.345 pH POC ABG pCO2 41.4 mmHg ABG pCO2 40.3 mm Hg POC ABG pO2 94.5 mmHg ABG pO2 67.4 mm Hg POC ABG HCO3 22.7 ABG O2 Saturation 94.3 % Patient awake. on room air. O2 saturation 98%. No acute respiratory distress. Patient afebrile. No leukocytosis. Patient complaining vomiting. Patient is on Zofran. Blood pressure 159/88. Management as per primary care and nephrology. Chest x-ray 01/03/21 reported There is decreased inspiration compared to yesterday's exam. Hazy opacity in the right perihilar region and larger area of infiltration in the left lower lung appears stable given differences in the level of inspiration. No large pleural effusion or pneumothorax. Chest xray done 02/14/21 reported Stable cardiomegaly. Lungs clear. Patient presently on s/c heparin, famotidine and vancomycin. Recommend to continue incentive spirometry. Start taking liquids. Still on TPN. - Patient Problems (1) Nicotine dependence Current Visit: Yes Status: Acute Qualifiers: Nicotine product type: cigarettes Substance use status: in withdrawal Qualified Code(s): F17.213 - Nicotine dependence, cigarettes, with withdrawal Plan to address problem: Counseled patient to stop smoking. (2) SOB (shortness of breath) Current Visit: No Status: Acute Plan to address problem: Improved. Patient resting on room air at this time. O2 saturation 99%. (3) Atrial fibrillation Current Visit: Yes Status: Acute Plan to address problem: Management as per cardiology. (4) CHF (congestive heart failure) Current Visit: No Status: Acute Qualifiers: Heart failure chronicity: chronic Plan to address problem: Management as per cardiology. (5) Small bowel obstruction Current Visit: Yes Status: Acute Plan to address problem: On 01/06/21 the patient underwent an exploratory laparotomy, jejunal colonic anastomosis, and segmental small bowel resection. Management as per surgery. Continue incentive spirometry (6) Small intestinal gangrene Current Visit: Yes Status: Acute Plan to address problem: On 01/06/21 the patient underwent an exploratory laparotomy, jejunal colonic anastomosis, and segmental small bowel resection. Management as per surgery. Continue incentive spirometry (7) Accelerated hypertension Current Visit: No Status: Acute Plan to address problem: Management as per primary care. (8) Acute on chronic kidney disease, stage 3 Current Visit: No Status: Acute Plan to address problem: Management as per nephrology. Subjective Date of service: 02/21/21 Principal diagnosis: Ac hypoxemic resp failure; Severe Sepsis; Peritonitis; Acute SBO; ESRD; CHF Interval history: This is a 60 YO Male with ESRD on PD, GERD, Crohn's Disease, Nicotine Dependence, HTN, Systolic CHF(EF 35%) who presented to the emergency department on 12/22 with complaints of abdominal pain which began shortly after eating fast food rated 10/10 which is periumbilical, constant, associated with fever, nausea and multiple sites of vomiting and self-reported inability to undergo PD. In the emergency room patient underwent a CT scan of the abdomen/pelvis which r evealed evidence of partial small bowel obstruction, symptoms were consistent with bacterial peritonitis. Patient was admitted to the hospital service with sepsis, peritonitis, and small bowel obstruction with consults to general surgery, nephrology, infectious disease and [facility]. On 01/06/21 the patient underwent an exploratory laparotomy, jejunal colonic anastomosis, and segmental small bowel resection. ABG's (01/07/21): pH 7.345 pH POC ABG pCO2 41.4 mmHg ABG pCO2 40.3 mm Hg POC ABG pO2 94.5 mmHg ABG pO2 67.4 mm Hg POC ABG HCO3 22.7 ABG O2 Saturation 94.3 % Patient awake. on room air. O2 saturation 98%. No acute respiratory distress. Patient afebrile. No leukocytosis. Patient complaining vomiting. Patient is on Zofran. Blood pressure 159/88. Management as per primary care and nephrology. Chest x-ray 01/03/21 reported There is decreased inspiration compared to yesterday's exam. Hazy opacity in the right perihilar region and larger area of infiltration in the left lower lung appears stable given differences in the level of inspiration. No large pleural effusion or pneumothorax. Chest xray done 02/14/21 reported Stable cardiomegaly. Lungs clear. Patient presently on s/c heparin, famotidine and vancomycin. Recommend to continue incentive spirometry. Start taking liquids. Still on TPN. Objective Vital Signs - 12hr 02/20/21 02/20/21 02/21/21 23:21 23:23 00:17 Temperature 99.0 F Pulse Rate 84 Respiratory 18 Rate Blood Pressure 141/105 141/103 162/84 Blood Pressure [Right] O2 Sat by Pulse 95 Oximetry 02/21/21 02/21/21 02/21/21 01:40 04:28 06:36 Temperature 98.7 F Pulse Rate 92 H 92 H Respiratory 18 Rate Blood Pressure 164/100 155/77 155/77 Blood Pressure [Right] O2 Sat by Pulse 96 Oximetry 02/21/21 02/21/21 06:37 07:55 Temperature 98.7 F Pulse Rate 94 H Respiratory 18 Rate Blood Pressure 155/77 Blood Pressure 153/78 [Right] O2 Sat by Pulse 99 Oximetry Constitutional: no acute distress, alert Eyes: non-icteric ENT: oropharynx moist Neck: supple, no lymphadenopathy, no JVD Effort: normal Ascultation: Bilateral: diminished breath sounds, rales, rhonchi (scant bases) Percussion: Bilateral: not dull Cardiovascular: regular rate and rhythm, other (S1,S2) Gastrointestinal: hypoactive bowel sounds, soft, non-tender, non-distended (protuberant), other (HARIS-drain; + PEG) Integumentary: other (Midline abdominal incision ) Extremities: no cyanosis, no edema, pulses normal, no ischemia or petechiae Neurologic: non-focal exam (grossly), pupils equal and round, CN II-XII normal Psychiatric: mood appropriate, affect normal CBC and BMP: 02/18/21 07:39 02/21/21 07:00 ABG, PT/INR, D-dimer: ABG ABG pH 7.345 pH Units (7.350-7.450) L 01/07/21 17:14 POC ABG pCO2 41.4 mmHg (32.0-48.0) 01/07/21 03:07 ABG pCO2 40.3 mm Hg 01/07/21 17:14 POC ABG pO2 94.5 mmHg (83-108) 01/07/21 03:07 ABG pO2 67.4 mm Hg (80.0-90.0) L 01/07/21 17:14 POC ABG HCO3 22.7 01/07/21 03:07 ABG O2 Saturation 94.3 % (95.0-99.0) L 01/07/21 17:14 PT/INR, D-dimer PT 16.9 Sec. (12.2-14.9) H 01/01/21 12:45 INR 1.39 (0.87-1.13) H 01/01/21 12:45 Abnormal lab findings: Abnormal Labs 12/22/20 12/22/20 12/22/20 14:38 14:38 14:38 WBC RBC Hgb 11.2 L Hct 35.0 L MCV MCHC RDW 16.7 H Plt Count Lymph % (Auto) [place] % (Auto) Eos % (Auto) Lymph # (Auto) [place] # (Auto) Eos # (Auto) Seg Neutrophils % Seg Neuts % (Manual) 94.0 H Lymphocytes % (Manual) 5.0 L Monocytes % (Manual) Seg Neutrophils # Seg Neutrophils # Man Lymphocytes # (Manual) 0.3 L Monocytes # (Manual) PT INR ABG pH POC ABG pCO2 POC ABG pO2 ABG pO2 ABG HCO3 ABG O2 Saturation ABG Base Excess ABG Hemoglobin ABG Oxyhemoglobin ABG Sodium ABG Potassium ABG Chloride ABG Glucose Oxyhemoglobin Sodium Potassium Chloride Carbon Dioxide BUN 58 H Creatinine 13.2 H Glucose 113 H POC Glucose Lactic Acid 3.60 H* Calcium Phosphorus Magnesium Iron TIBC Transferrin Ferritin Total Bilirubin 1.30 H AST ALT Alkaline Phosphatase 155 H Total Protein Albumin Triglycerides Arterial Blood Glucose Arterial Blood Ionized Calcium Digoxin Crossmatch 12/22/20 12/22/20 12/23/20 16:26 17:47 05:22 WBC RBC Hgb Hct MCV MCHC RDW Plt Count Lymph % (Auto) [place] % (Auto) Eos % (Auto) Lymph # (Auto) [place] # (Auto) Eos # (Auto) Seg Neutrophils % Seg Neuts % (Manual) Lymphocytes % (Manual) Monocytes % (Manual) Seg Neutrophils # Seg Neutrophils # Man Lymphocytes # (Manual) Monocytes # (Manual) PT INR ABG pH POC ABG pCO2 POC ABG pO2 ABG pO2 ABG HCO3 ABG O2 Saturation ABG Base Excess ABG Hemoglobin ABG Oxyhemoglobin ABG Sodium ABG Potassium ABG Chloride ABG Glucose Oxyhemoglobin Sodium Potassium Chloride Carbon Dioxide BUN Creatinine Glucose POC Glucose Lactic Acid 2.80 H* 3.10 H* 2.30 H* Calcium Phosphorus Magnesium Iron TIBC Transferrin Ferritin Total Bilirubin AST ALT Alkaline Phosphatase Total Protein Albumin Triglycerides Arterial Blood Glucose Arterial Blood Ionized Calcium Digoxin Crossmatch 12/23/20 12/23/20 12/23/20 05:22 05:22 06:35 WBC 12.1 H RBC Hgb 11.0 L Hct 33.7 L MCV MCHC RDW 16.9 H Plt Count Lymph % (Auto) [place] % (Auto) Eos % (Auto) Lymph # (Auto) [place] # (Auto) Eos # (Auto) Seg Neutrophils % Seg Neuts % (Manual) 93.0 H Lymphocytes % (Manual) 1.0 L Monocytes % (Manual) Seg Neutrophils # Seg Neutrophils # Man 11.3 H Lymphocytes # (Manual) 0.1 L Monocytes # (Manual) PT INR ABG pH POC ABG pCO2 POC ABG pO2 ABG pO2 ABG HCO3 ABG O2 Saturation ABG Base Excess ABG Hemoglobin ABG Oxyhemoglobin ABG Sodium ABG Potassium ABG Chloride ABG Glucose Oxyhemoglobin Sodium Potassium 5.7 H D Chloride Carbon Dioxide BUN 73 H Creatinine 14.2 H Glucose POC Glucose Lactic Acid 2.30 H* Calcium 7.9 L Phosphorus Magnesium Iron TIBC Transferrin Ferritin Total Bilirubin 1.40 H AST 119 H ALT 130 H Alkaline Phosphatase 183 H Total Protein 6.1 L Albumin 3.6 L Triglycerides Arterial Blood Glucose Arterial Blood Ionized Calcium Digoxin Crossmatch 12/23/20 12/23/20 12/23/20 11:40 13:53 16:47 WBC RBC Hgb 10.0 L Hct 30.4 L MCV MCHC RDW Plt Count Lymph % (Auto) [place] % (Auto) Eos % (Auto) Lymph # (Auto) [place] # (Auto) Eos # (Auto) Seg Neutrophils % Seg Neuts % (Manual) Lymphocytes % (Manual) Monocytes % (Manual) Seg Neutrophils # Seg Neutrophils # Man Lymphocytes # (Manual) Monocytes # (Manual) PT INR ABG pH POC ABG pCO2 POC ABG pO2 137.5 H ABG pO2 ABG HCO3 ABG O2 Saturation ABG Base Excess ABG Hemoglobin 9.7 L ABG Oxyhemoglobin ABG Sodium 134.1 L ABG Potassium 6.6 H ABG Chloride ABG Glucose 103 H Oxyhemoglobin Sodium Potassium Chloride Carbon Dioxide BUN Creatinine Glucose POC Glucose Lactic Acid Calcium Phosphorus Magnesium Iron TIBC Transferrin Ferritin Total Bilirubin AST ALT Alkaline Phosphatase Total Protein Albumin Triglycerides Arterial Blood Glucose 103 H Arterial Blood Ionized Calcium 3.8 L Digoxin Crossmatch See Detail 12/23/20 12/23/20 12/24/20 20:35 20:40 01:20 WBC RBC Hgb Hct MCV MCHC RDW Plt Count Lymph % (Auto) [place] % (Auto) Eos % (Auto) Lymph # (Auto) [place] # (Auto) Eos # (Auto) Seg Neutrophils % Seg Neuts % (Manual) Lymphocytes % (Manual) Monocytes % (Manual) Seg Neutrophils # Seg Neutrophils # Man Lymphocytes # (Manual) Monocytes # (Manual) PT INR ABG pH 7.252 L POC ABG pCO2 POC ABG pO2 ABG pO2 50.1 L ABG HCO3 ABG O2 Saturation 81.1 L ABG Base Excess -5.9 L ABG Hemoglobin 12.1 L ABG Oxyhemoglobin ABG Sodium ABG Potassium ABG Chloride ABG Glucose Oxyhemoglobin 78.6 L Sodium 134 L Potassium 6.9 H* D 6.3 H* Chloride Carbon Dioxide 18 L 20 L BUN 87 H 91 H Creatinine 15.3 H 15.3 H Glucose 103 H POC Glucose Lactic Acid Calcium 6.9 L 7.5 L Phosphorus Magnesium Iron TIBC Transferrin Ferritin Total Bilirubin AST ALT Alkaline Phosphatase Total Protein Albumin Triglycerides Arterial Blood Glucose Arterial Blood Ionized Calcium Digoxin Crossmatch 12/24/20 12/24/20 12/24/20 04:00 10:29 10:29 WBC RBC 3.49 L Hgb 10.5 L Hct 31.2 L MCV MCHC RDW 17.5 H Plt Count 124 L Lymph % (Auto) 3.7 L [place] % (Auto) 9.8 H Eos % (Auto) Lymph # (Auto) 0.2 L [place] # (Auto) Eos # (Auto) Seg Neutrophils % 85.9 H Seg Neuts % (Manual) Lymphocytes % (Manual) Monocytes % (Manual) Seg Neutrophils # Seg Neutrophils # Man Lymphocytes # (Manual) Monocytes # (Manual) PT INR ABG pH POC ABG pCO2 28.1 L POC ABG pO2 ABG pO2 ABG HCO3 ABG O2 Saturation ABG Base Excess ABG Hemoglobin ABG Oxyhemoglobin ABG Sodium 133.9 L ABG Potassium 5.3 H ABG Chloride 108.0 H ABG Glucose Oxyhemoglobin Sodium Potassium 5.6 H Chloride Carbon Dioxide 19 L BUN 99 H Creatinine 16.9 H Glucose 52 L POC Glucose Lactic Acid Calcium 7.6 L Phosphorus Magnesium Iron TIBC Transferrin Ferritin Total Bilirubin 3.50 H AST 67 H ALT 71 H Alkaline Phosphatase Total Protein 3.5 L D Albumin 2.1 L Triglycerides Arterial Blood Glucose Arterial Blood Ionized Calcium 4.0 L Digoxin Crossmatch 12/25/20 12/25/20 12/25/20 03:33 04:00 04:00 WBC 3.8 L RBC 2.90 L Hgb 8.6 L Hct 25.7 L MCV MCHC RDW 16.7 H Plt Count 113 L Lymph % (Auto) [place] % (Auto) Eos % (Auto) Lymph # (Auto) [place] # (Auto) Eos # (Auto) Seg Neutrophils % Seg Neuts % (Manual) Lymphocytes % (Manual) Monocytes % (Manual) Seg Neutrophils # Seg Neutrophils # Man Lymphocytes # (Manual) Monocytes # (Manual) PT INR ABG pH 7.544 H POC ABG pCO2 28.2 L POC ABG pO2 62.8 L ABG pO2 ABG HCO3 ABG O2 Saturation ABG Base Excess ABG Hemoglobin 9.3 L ABG Oxyhemoglobin 93.0 L ABG Sodium 130.3 L ABG Potassium ABG Chloride ABG Glucose 97 H Oxyhemoglobin Sodium Potassium Chloride Carbon Dioxide BUN 62 H Creatinine 11.4 H Glucose POC Glucose Lactic Acid Calcium 7.7 L Phosphorus 5.00 H Magnesium Iron TIBC Transferrin Ferritin Total Bilirubin AST ALT Alkaline Phosphatase Total Protein Albumin Triglycerides Arterial Blood Glucose 97 H Arterial Blood Ionized Calcium 3.9 L Digoxin Crossmatch 12/26/20 12/26/20 12/27/20 04:46 Unknown 03:40 WBC 4.1 L RBC 2.61 L Hgb 7.8 L Hct 23.4 L MCV MCHC RDW 17.1 H Plt Count 119 L Lymph % (Auto) 5.3 L [place] % (Auto) 10.6 H Eos % (Auto) Lymph # (Auto) 0.2 L [place] # (Auto) Eos # (Auto) Seg Neutrophils % 78.8 H Seg Neuts % (Manual) Lymphocytes % (Manual) Monocytes % (Manual) Seg Neutrophils # Seg Neutrophils # Man Lymphocytes # (Manual) Monocytes # (Manual) PT INR ABG pH 7.333 L 7.332 L POC ABG pCO2 POC ABG pO2 ABG pO2 ABG HCO3 26.9 H ABG O2 Saturation ABG Base Excess -2.4 L ABG Hemoglobin 6.8 L 7.2 L ABG Oxyhemoglobin ABG Sodium ABG Potassium ABG Chloride ABG Glucose Oxyhemoglobin 93.0 L 93.1 L Sodium Potassium Chloride Carbon Dioxide BUN Creatinine Glucose POC Glucose Lactic Acid Calcium Phosphorus Magnesium Iron TIBC Transferrin Ferritin Total Bilirubin AST ALT Alkaline Phosphatase Total Protein Albumin Triglycerides Arterial Blood Glucose Arterial Blood Ionized Calcium Digoxin Crossmatch 12/27/20 12/27/20 12/27/20 06:40 06:40 11:22 WBC 4.4 L RBC 2.49 L Hgb 7.4 L Hct 22.4 L MCV MCHC RDW 17.1 H Plt Count 111 L Lymph % (Auto) 6.7 L [place] % (Auto) 12.6 H Eos % (Auto) Lymph # (Auto) 0.3 L [place] # (Auto) Eos # (Auto) Seg Neutrophils % 77.6 H Seg Neuts % (Manual) Lymphocytes % (Manual) Monocytes % (Manual) Seg Neutrophils # Seg Neutrophils # Man Lymphocytes # (Manual) Monocytes # (Manual) PT INR ABG pH POC ABG pCO2 POC ABG pO2 ABG pO2 ABG HCO3 ABG O2 Saturation ABG Base Excess ABG Hemoglobin ABG Oxyhemoglobin ABG Sodium ABG Potassium ABG Chloride ABG Glucose Oxyhemoglobin Sodium Potassium Chloride Carbon Dioxide BUN 64 H Creatinine 9.8 H Glucose 147 H POC Glucose 134 H Lactic Acid Calcium 8.3 L Phosphorus 5.00 H Magnesium Iron TIBC Transferrin Ferritin Total Bilirubin 3.70 H AST 72 H ALT Alkaline Phosphatase 142 H Total Protein 5.1 L D Albumin 2.9 L Triglycerides Arterial Blood Glucose Arterial Blood Ionized Calcium Digoxin Crossmatch 12/27/20 12/27/20 12/28/20 17:29 23:31 03:09 WBC RBC Hgb Hct MCV MCHC RDW Plt Count Lymph % (Auto) [place] % (Auto) Eos % (Auto) Lymph # (Auto) [place] # (Auto) Eos # (Auto) Seg Neutrophils % Seg Neuts % (Manual) Lymphocytes % (Manual) Monocytes % (Manual) Seg Neutrophils # Seg Neutrophils # Man Lymphocytes # (Manual) Monocytes # (Manual) PT INR ABG pH 7.474 H POC ABG pCO2 POC ABG pO2 ABG pO2 ABG HCO3 ABG O2 Saturation ABG Base Excess ABG Hemoglobin 7.8 L ABG Oxyhemoglobin ABG Sodium ABG Potassium ABG Chloride ABG Glucose Oxyhemoglobin Sodium Potassium Chloride Carbon Dioxide BUN Creatinine Glucose POC Glucose 121 H 131 H Lactic Acid Calcium Phosphorus Magnesium Iron TIBC Transferrin Ferritin Total Bilirubin AST ALT Alkaline Phosphatase Total Protein Albumin Triglycerides Arterial Blood Glucose Arterial Blood Ionized Calcium Digoxin Crossmatch 12/28/20 12/28/20 12/28/20 05:37 05:40 05:40 WBC 4.3 L RBC 2.40 L Hgb 7.2 L Hct 21.5 L MCV MCHC RDW 17.4 H Plt Count 112 L Lymph % (Auto) 6.5 L [place] % (Auto) 16.7 H Eos % (Auto) Lymph # (Auto) 0.3 L [place] # (Auto) Eos # (Auto) Seg Neutrophils % 71.1 H Seg Neuts % (Manual) Lymphocytes % (Manual) Monocytes % (Manual) Seg Neutrophils # Seg Neutrophils # Man Lymphocytes # (Manual) Monocytes # (Manual) PT INR ABG pH POC ABG pCO2 POC ABG pO2 ABG pO2 ABG HCO3 ABG O2 Saturation ABG Base Excess ABG Hemoglobin ABG Oxyhemoglobin ABG Sodium ABG Potassium ABG Chloride ABG Glucose Oxyhemoglobin Sodium Potassium Chloride Carbon Dioxide BUN 85 H Creatinine 11.5 H Glucose 132 H POC Glucose 121 H Lactic Acid Calcium 8.2 L Phosphorus Magnesium 2.40 H Iron TIBC Transferrin Ferritin Total Bilirubin 3.80 H AST 70 H ALT Alkaline Phosphatase 176 H Total Protein 5.0 L Albumin 2.9 L Triglycerides Arterial Blood Glucose Arterial Blood Ionized Calcium Digoxin Crossmatch 12/28/20 12/28/20 12/28/20 11:34 15:00 17:35 WBC RBC Hgb Hct MCV MCHC RDW Plt Count Lymph % (Auto) [place] % (Auto) Eos % (Auto) Lymph # (Auto) [place] # (Auto) Eos # (Auto) Seg Neutrophils % Seg Neuts % (Manual) Lymphocytes % (Manual) Monocytes % (Manual) Seg Neutrophils # Seg Neutrophils # Man Lymphocytes # (Manual) Monocytes # (Manual) PT INR ABG pH 7.461 H POC ABG pCO2 POC ABG pO2 72.2 L ABG pO2 ABG HCO3 ABG O2 Saturation ABG Base Excess ABG Hemoglobin 8.2 L ABG Oxyhemoglobin 93.6 L ABG Sodium 134.1 L ABG Potassium 3.2 L ABG Chloride ABG Glucose 135 H Oxyhemoglobin Sodium Potassium Chloride Carbon Dioxide BUN Creatinine Glucose POC Glucose 137 H 144 H Lactic Acid Calcium Phosphorus Magnesium Iron TIBC Transferrin Ferritin Total Bilirubin AST ALT Alkaline Phosphatase Total Protein Albumin Triglycerides Arterial Blood Glucose 135 H Arterial Blood Ionized Calcium 4.4 L Digoxin Crossmatch 12/28/20 12/28/20 12/29/20 19:44 Unknown 00:21 WBC RBC Hgb Hct MCV MCHC RDW Plt Count Lymph % (Auto) [place] % (Auto) Eos % (Auto) Lymph # (Auto) [place] # (Auto) Eos # (Auto) Seg Neutrophils % Seg Neuts % (Manual) Lymphocytes % (Manual) Monocytes % (Manual) Seg Neutrophils # Seg Neutrophils # Man Lymphocytes # (Manual) Monocytes # (Manual) PT INR ABG pH 7.474 H POC ABG pCO2 POC ABG pO2 ABG pO2 ABG HCO3 ABG O2 Saturation ABG Base Excess ABG Hemoglobin 7.8 L ABG Oxyhemoglobin ABG Sodium 133.2 L ABG Potassium ABG Chloride ABG Glucose 139 H Oxyhemoglobin Sodium 135 L Potassium Chloride 96.6 L Carbon Dioxide BUN 47 H Creatinine 7.4 H Glucose 130 H POC Glucose 142 H Lactic Acid Calcium 8.3 L Phosphorus Magnesium Iron TIBC Transferrin Ferritin Total Bilirubin AST ALT Alkaline Phosphatase Total Protein Albumin Triglycerides Arterial Blood Glucose 139 H Arterial Blood Ionized Calcium 4.3 L Digoxin Crossmatch 12/29/20 12/29/20 12/29/20 05:16 05:16 05:26 WBC RBC 2.53 L Hgb 7.7 L Hct 22.8 L MCV MCHC RDW 17.0 H Plt Count 130 L Lymph % (Auto) [place] % (Auto) Eos % (Auto) Lymph # (Auto) [place] # (Auto) Eos # (Auto) Seg Neutrophils % Seg Neuts % (Manual) 79.0 H Lymphocytes % (Manual) 9.0 L Monocytes % (Manual) Seg Neutrophils # Seg Neutrophils # Man Lymphocytes # (Manual) 0.6 L Monocytes # (Manual) PT INR ABG pH POC ABG pCO2 POC ABG pO2 ABG pO2 ABG HCO3 ABG O2 Saturation ABG Base Excess ABG Hemoglobin ABG Oxyhemoglobin ABG Sodium ABG Potassium ABG Chloride ABG Glucose Oxyhemoglobin Sodium Potassium 3.4 L Chloride 96.6 L Carbon Dioxide BUN 59 H Creatinine 8.3 H Glucose 127 H POC Glucose 141 H Lactic Acid Calcium 8.2 L Phosphorus Magnesium Iron TIBC Transferrin Ferritin Total Bilirubin 3.00 H AST 88 H ALT Alkaline Phosphatase 188 H Total Protein 5.1 L Albumin 2.8 L Triglycerides Arterial Blood Glucose Arterial Blood Ionized Calcium Digoxin Crossmatch 12/29/20 12/29/20 12/29/20 11:33 17:29 23:22 WBC RBC Hgb Hct MCV MCHC RDW Plt Count Lymph % (Auto) [place] % (Auto) Eos % (Auto) Lymph # (Auto) [place] # (Auto) Eos # (Auto) Seg Neutrophils % Seg Neuts % (Manual) Lymphocytes % (Manual) Monocytes % (Manual) Seg Neutrophils # Seg Neutrophils # Man Lymphocytes # (Manual) Monocytes # (Manual) PT INR ABG pH POC ABG pCO2 POC ABG pO2 ABG pO2 ABG HCO3 ABG O2 Saturation ABG Base Excess ABG Hemoglobin ABG Oxyhemoglobin ABG Sodium ABG Potassium ABG Chloride ABG Glucose Oxyhemoglobin Sodium Potassium Chloride Carbon Dioxide BUN Creatinine Glucose POC Glucose 144 H 130 H 117 H Lactic Acid Calcium Phosphorus Magnesium Iron TIBC Transferrin Ferritin Total Bilirubin AST ALT Alkaline Phosphatase Total Protein Albumin Triglycerides Arterial Blood Glucose Arterial Blood Ionized Calcium Digoxin Crossmatch 12/30/20 12/30/20 12/30/20 05:23 08:15 09:00 WBC RBC Hgb Hct MCV MCHC RDW Plt Count Lymph % (Auto) [place] % (Auto) Eos % (Auto) Lymph # (Auto) [place] # (Auto) Eos # (Auto) Seg Neutrophils % Seg Neuts % (Manual) Lymphocytes % (Manual) Monocytes % (Manual) Seg Neutrophils # Seg Neutrophils # Man Lymphocytes # (Manual) Monocytes # (Manual) PT INR ABG pH POC ABG pCO2 POC ABG pO2 ABG pO2 ABG HCO3 ABG O2 Saturation ABG Base Excess ABG Hemoglobin ABG Oxyhemoglobin ABG Sodium ABG Potassium ABG Chloride ABG Glucose Oxyhemoglobin Sodium 135 L Potassium Chloride 95.9 L Carbon Dioxide BUN 85 H Creatinine 10.6 H Glucose 128 H POC Glucose 135 H 127 H Lactic Acid Calcium 8.3 L Phosphorus Magnesium Iron TIBC Transferrin Ferritin Total Bilirubin 2.40 H AST 85 H ALT Alkaline Phosphatase 216 H Total Protein 5.3 L Albumin 2.6 L Triglycerides 155 H Arterial Blood Glucose Arterial Blood Ionized Calcium Digoxin Crossmatch 12/30/20 12/30/20 12/30/20 09:00 11:53 15:49 WBC RBC 2.61 L Hgb 7.8 L Hct 23.7 L MCV MCHC RDW 17.3 H Plt Count Lymph % (Auto) [place] % (Auto) Eos % (Auto) Lymph # (Auto) [place] # (Auto) Eos # (Auto) Seg Neutrophils % Seg Neuts % (Manual) Lymphocytes % (Manual) Monocytes % (Manual) Seg Neutrophils # Seg Neutrophils # Man Lymphocytes # (Manual) Monocytes # (Manual) PT INR ABG pH POC ABG pCO2 POC ABG pO2 ABG pO2 ABG HCO3 ABG O2 Saturation ABG Base Excess ABG Hemoglobin ABG Oxyhemoglobin ABG Sodium ABG Potassium ABG Chloride ABG Glucose Oxyhemoglobin Sodium Potassium Chloride Carbon Dioxide BUN Creatinine Glucose POC Glucose 155 H 146 H Lactic Acid Calcium Phosphorus Magnesium Iron TIBC Transferrin Ferritin Total Bilirubin AST ALT Alkaline Phosphatase Total Protein Albumin Triglycerides Arterial Blood Glucose Arterial Blood Ionized Calcium Digoxin Crossmatch 12/30/20 12/30/20 12/31/20 17:53 23:45 03:56 WBC RBC Hgb Hct MCV MCHC RDW Plt Count Lymph % (Auto) [place] % (Auto) Eos % (Auto) Lymph # (Auto) [place] # (Auto) Eos # (Auto) Seg Neutrophils % Seg Neuts % (Manual) Lymphocytes % (Manual) Monocytes % (Manual) Seg Neutrophils # Seg Neutrophils # Man Lymphocytes # (Manual) Monocytes # (Manual) PT INR ABG pH POC ABG pCO2 POC ABG pO2 49.4 L ABG pO2 ABG HCO3 ABG O2 Saturation ABG Base Excess ABG Hemoglobin 10.3 L ABG Oxyhemoglobin 84.2 L ABG Sodium 133.1 L ABG Potassium ABG Chloride ABG Glucose 173 H Oxyhemoglobin Sodium Potassium Chloride Carbon Dioxide BUN Creatinine Glucose POC Glucose 139 H 173 H Lactic Acid Calcium Phosphorus Magnesium Iron TIBC Transferrin Ferritin Total Bilirubin AST ALT Alkaline Phosphatase Total Protein Albumin Triglycerides Arterial Blood Glucose 173 H Arterial Blood Ionized Calcium Digoxin Crossmatch 12/31/20 12/31/20 12/31/20 05:07 06:51 06:51 WBC 20.3 H RBC 3.32 L Hgb 9.8 L Hct 30.3 L D MCV MCHC RDW 17.3 H Plt Count Lymph % (Auto) [place] % (Auto) Eos % (Auto) Lymph # (Auto) [place] # (Auto) Eos # (Auto) Seg Neutrophils % Seg Neuts % (Manual) 87.0 H Lymphocytes % (Manual) 10.0 L Monocytes % (Manual) Seg Neutrophils # Seg Neutrophils # Man 17.7 H Lymphocytes # (Manual) Monocytes # (Manual) PT INR ABG pH POC ABG pCO2 POC ABG pO2 ABG pO2 ABG HCO3 ABG O2 Saturation ABG Base Excess ABG Hemoglobin ABG Oxyhemoglobin ABG Sodium ABG Potassium ABG Chloride ABG Glucose Oxyhemoglobin Sodium Potassium 5.2 H D Chloride Carbon Dioxide BUN 62 H Creatinine 8.4 H Glucose 116 H POC Glucose 120 H Lactic Acid Calcium Phosphorus Magnesium 1.60 L Iron TIBC Transferrin Ferritin Total Bilirubin AST ALT Alkaline Phosphatase Total Protein Albumin Triglycerides Arterial Blood Glucose Arterial Blood Ionized Calcium Digoxin Crossmatch 12/31/20 12/31/20 12/31/20 09:38 12:19 12:22 WBC RBC Hgb Hct MCV MCHC RDW Plt Count Lymph % (Auto) [place] % (Auto) Eos % (Auto) Lymph # (Auto) [place] # (Auto) Eos # (Auto) Seg Neutrophils % Seg Neuts % (Manual) Lymphocytes % (Manual) Monocytes % (Manual) Seg Neutrophils # Seg Neutrophils # Man Lymphocytes # (Manual) Monocytes # (Manual) PT INR ABG pH POC ABG pCO2 POC ABG pO2 ABG pO2 354.0 H ABG HCO3 ABG O2 Saturation 99.6 H ABG Base Excess ABG Hemoglobin 9.1 L ABG Oxyhemoglobin ABG Sodium ABG Potassium ABG Chloride ABG Glucose Oxyhemoglobin Sodium Potassium 5.2 H Chloride Carbon Dioxide BUN Creatinine Glucose POC Glucose 132 H Lactic Acid Calcium Phosphorus Magnesium Iron TIBC Transferrin Ferritin Total Bilirubin AST ALT Alkaline Phosphatase Total Protein Albumin Triglycerides Arterial Blood Glucose Arterial Blood Ionized Calcium Digoxin Crossmatch 12/31/20 01/01/21 01/01/21 23:23 03:03 05:04 WBC RBC Hgb Hct MCV MCHC RDW Plt Count Lymph % (Auto) [place] % (Auto) Eos % (Auto) Lymph # (Auto) [place] # (Auto) Eos # (Auto) Seg Neutrophils % Seg Neuts % (Manual) Lymphocytes % (Manual) Monocytes % (Manual) Seg Neutrophils # Seg Neutrophils # Man Lymphocytes # (Manual) Monocytes # (Manual) PT INR ABG pH POC ABG pCO2 POC ABG pO2 79.6 L ABG pO2 ABG HCO3 ABG O2 Saturation ABG Base Excess ABG Hemoglobin 9.2 L ABG Oxyhemoglobin ABG Sodium 131.6 L ABG Potassium 5.8 H ABG Chloride ABG Glucose 177 H Oxyhemoglobin Sodium Potassium Chloride Carbon Dioxide BUN Creatinine Glucose POC Glucose 174 H 167 H Lactic Acid Calcium Phosphorus Magnesium Iron TIBC Transferrin Ferritin Total Bilirubin AST ALT Alkaline Phosphatase Total Protein Albumin Triglycerides Arterial Blood Glucose 177 H Arterial Blood Ionized Calcium Digoxin Crossmatch 01/01/21 01/01/21 01/01/21 07:31 07:31 11:31 WBC 26.1 H RBC 2.95 L Hgb 8.6 L Hct 27.1 L MCV MCHC RDW 18.2 H Plt Count Lymph % (Auto) [place] % (Auto) Eos % (Auto) Lymph # (Auto) [place] # (Auto) Eos # (Auto) Seg Neutrophils % Seg Neuts % (Manual) 96.0 H Lymphocytes % (Manual) 4.0 L Monocytes % (Manual) Seg Neutrophils # Seg Neutrophils # Man 25.1 H Lymphocytes # (Manual) 1.0 L Monocytes # (Manual) PT INR ABG pH POC ABG pCO2 POC ABG pO2 ABG pO2 ABG HCO3 ABG O2 Saturation ABG Base Excess ABG Hemoglobin ABG Oxyhemoglobin ABG Sodium ABG Potassium ABG Chloride ABG Glucose Oxyhemoglobin Sodium Potassium 6.0 H Chloride Carbon Dioxide 21 L BUN 89 H Creatinine 10.5 H Glucose 179 H POC Glucose Lactic Acid Calcium Phosphorus Magnesium Iron TIBC Transferrin Ferritin Total Bilirubin AST ALT Alkaline Phosphatase Total Protein Albumin Triglycerides Arterial Blood Glucose Arterial Blood Ionized Calcium Digoxin Crossmatch See Detail 01/01/21 01/01/21 01/01/21 11:51 12:45 16:52 WBC RBC Hgb Hct MCV MCHC RDW Plt Count Lymph % (Auto) [place] % (Auto) Eos % (Auto) Lymph # (Auto) [place] # (Auto) Eos # (Auto) Seg Neutrophils % Seg Neuts % (Manual) Lymphocytes % (Manual) Monocytes % (Manual) Seg Neutrophils # Seg Neutrophils # Man Lymphocytes # (Manual) Monocytes # (Manual) PT 16.9 H INR 1.39 H ABG pH POC ABG pCO2 POC ABG pO2 ABG pO2 ABG HCO3 ABG O2 Saturation ABG Base Excess ABG Hemoglobin ABG Oxyhemoglobin ABG Sodium ABG Potassium ABG Chloride ABG Glucose Oxyhemoglobin Sodium Potassium Chloride Carbon Dioxide BUN Creatinine Glucose POC Glucose 157 H 177 H Lactic Acid Calcium Phosphorus Magnesium Iron TIBC Transferrin Ferritin Total Bilirubin AST ALT Alkaline Phosphatase Total Protein Albumin Triglycerides Arterial Blood Glucose Arterial Blood Ionized Calcium Digoxin Crossmatch 01/01/21 01/01/21 01/01/21 17:58 17:58 20:12 WBC 26.9 H RBC 3.14 L Hgb 9.3 L Hct 29.6 L MCV MCHC RDW 17.5 H Plt Count Lymph % (Auto) [place] % (Auto) Eos % (Auto) Lymph # (Auto) [place] # (Auto) Eos # (Auto) Seg Neutrophils % Seg Neuts % (Manual) 84.0 H Lymphocytes % (Manual) 4.0 L Monocytes % (Manual) 12.0 H Seg Neutrophils # Seg Neutrophils # Man 22.6 H Lymphocytes # (Manual) 1.1 L Monocytes # (Manual) 3.2 H PT INR ABG pH POC ABG pCO2 POC ABG pO2 ABG pO2 ABG HCO3 ABG O2 Saturation ABG Base Excess ABG Hemoglobin ABG Oxyhemoglobin ABG Sodium ABG Potassium ABG Chloride ABG Glucose Oxyhemoglobin Sodium 136 L Potassium 6.2 H* Chloride Carbon Dioxide 21 L BUN 92 H Creatinine 10.8 H Glucose 171 H POC Glucose 288 H Lactic Acid Calcium Phosphorus Magnesium Iron TIBC Transferrin Ferritin Total Bilirubin 2.10 H AST 223 H ALT 100 H Alkaline Phosphatase 206 H Total Protein 4.8 L Albumin 1.9 L Triglycerides Arterial Blood Glucose Arterial Blood Ionized Calcium Digoxin Crossmatch 01/02/21 01/02/21 01/02/21 00:12 00:45 03:05 WBC RBC Hgb Hct MCV MCHC RDW Plt Count Lymph % (Auto) [place] % (Auto) Eos % (Auto) Lymph # (Auto) [place] # (Auto) Eos # (Auto) Seg Neutrophils % Seg Neuts % (Manual) Lymphocytes % (Manual) Monocytes % (Manual) Seg Neutrophils # Seg Neutrophils # Man Lymphocytes # (Manual) Monocytes # (Manual) PT INR ABG pH POC ABG pCO2 POC ABG pO2 81.8 L ABG pO2 ABG HCO3 ABG O2 Saturation ABG Base Excess ABG Hemoglobin 8.0 L ABG Oxyhemoglobin ABG Sodium 129.8 L ABG Potassium 5.4 H ABG Chloride ABG Glucose 257 H Oxyhemoglobin Sodium 136 L Potassium 5.8 H Chloride 96.6 L Carbon Dioxide BUN 95 H Creatinine 11.2 H Glucose 238 H POC Glucose 223 H Lactic Acid Calcium Phosphorus Magnesium Iron TIBC Transferrin Ferritin Total Bilirubin AST ALT Alkaline Phosphatase Total Protein Albumin Triglycerides Arterial Blood Glucose 257 H Arterial Blood Ionized Calcium 4.0 L Digoxin Crossmatch 01/02/21 01/02/21 01/02/21 06:25 08:00 08:00 WBC 17.5 H RBC 2.31 L Hgb 6.7 L Hct 22.1 L D MCV 96 H MCHC 30 L RDW 18.4 H Plt Count Lymph % (Auto) [place] % (Auto) Eos % (Auto) Lymph # (Auto) [place] # (Auto) Eos # (Auto) Seg Neutrophils % Seg Neuts % (Manual) Lymphocytes % (Manual) Monocytes % (Manual) Seg Neutrophils # Seg Neutrophils # Man Lymphocytes # (Manual) Monocytes # (Manual) PT INR ABG pH POC ABG pCO2 POC ABG pO2 ABG pO2 ABG HCO3 ABG O2 Saturation ABG Base Excess ABG Hemoglobin ABG Oxyhemoglobin ABG Sodium ABG Potassium ABG Chloride ABG Glucose Oxyhemoglobin Sodium 134 L Potassium 5.3 H Chloride 92.9 L Carbon Dioxide BUN 101 H Creatinine 10.9 H Glucose 560 H* POC Glucose 239 H Lactic Acid Calcium 7.6 L Phosphorus 6.50 H Magnesium Iron TIBC Transferrin Ferritin Total Bilirubin AST ALT Alkaline Phosphatase Total Protein Albumin Triglycerides Arterial Blood Glucose Arterial Blood Ionized Calcium Digoxin Crossmatch 01/02/21 01/02/21 01/02/21 11:26 15:00 17:57 WBC RBC Hgb Hct MCV MCHC RDW Plt Count Lymph % (Auto) [place] % (Auto) Eos % (Auto) Lymph # (Auto) [place] # (Auto) Eos # (Auto) Seg Neutrophils % Seg Neuts % (Manual) Lymphocytes % (Manual) Monocytes % (Manual) Seg Neutrophils # Seg Neutrophils # Man Lymphocytes # (Manual) Monocytes # (Manual) PT INR ABG pH POC ABG pCO2 POC ABG pO2 ABG pO2 ABG HCO3 ABG O2 Saturation ABG Base Excess ABG Hemoglobin ABG Oxyhemoglobin ABG Sodium ABG Potassium ABG Chloride ABG Glucose Oxyhemoglobin Sodium Potassium Chloride Carbon Dioxide BUN Creatinine Glucose 241 H POC Glucose 205 H 272 H Lactic Acid Calcium Phosphorus Magnesium Iron TIBC Transferrin Ferritin Total Bilirubin AST ALT Alkaline Phosphatase Total Protein Albumin Triglycerides Arterial Blood Glucose Arterial Blood Ionized Calcium Digoxin Crossmatch 01/02/21 01/02/21 01/03/21 23:25 23:43 03:45 WBC RBC Hgb Hct MCV MCHC RDW Plt Count Lymph % (Auto) [place] % (Auto) Eos % (Auto) Lymph # (Auto) [place] # (Auto) Eos # (Auto) Seg Neutrophils % Seg Neuts % (Manual) Lymphocytes % (Manual) Monocytes % (Manual) Seg Neutrophils # Seg Neutrophils # Man Lymphocytes # (Manual) Monocytes # (Manual) PT INR ABG pH POC ABG pCO2 48.3 H POC ABG pO2 134.4 H 79.7 L ABG pO2 ABG HCO3 ABG O2 Saturation ABG Base Excess ABG Hemoglobin 7.7 L 8.6 L ABG Oxyhemoglobin ABG Sodium 131.8 L 130.4 L ABG Potassium ABG Chloride 97.0 L ABG Glucose 218 H 238 H Oxyhemoglobin Sodium Potassium Chloride Carbon Dioxide BUN Creatinine Glucose POC Glucose 218 H Lactic Acid Calcium Phosphorus Magnesium Iron TIBC Transferrin Ferritin Total Bilirubin AST ALT Alkaline Phosphatase Total Protein Albumin Triglycerides Arterial Blood Glucose 218 H 238 H Arterial Blood Ionized Calcium 4.1 L 4.0 L Digoxin Crossmatch 01/03/21 01/03/21 01/03/21 04:37 04:37 05:39 WBC 15.2 H RBC 2.38 L Hgb 7.3 L Hct 21.6 L MCV MCHC RDW 16.6 H Plt Count Lymph % (Auto) [place] % (Auto) Eos % (Auto) Lymph # (Auto) [place] # (Auto) Eos # (Auto) Seg Neutrophils % Seg Neuts % (Manual) Lymphocytes % (Manual) Monocytes % (Manual) Seg Neutrophils # Seg Neutrophils # Man Lymphocytes # (Manual) Monocytes # (Manual) PT INR ABG pH POC ABG pCO2 POC ABG pO2 ABG pO2 ABG HCO3 ABG O2 Saturation ABG Base Excess ABG Hemoglobin ABG Oxyhemoglobin ABG Sodium ABG Potassium ABG Chloride ABG Glucose Oxyhemoglobin Sodium 136 L Potassium Chloride 94.5 L Carbon Dioxide BUN 69 H Creatinine 8.0 H Glucose 219 H POC Glucose 222 H Lactic Acid Calcium 7.8 L Phosphorus 4.80 H D Magnesium Iron TIBC Transferrin Ferritin Total Bilirubin AST ALT Alkaline Phosphatase Total Protein Albumin Triglycerides Arterial Blood Glucose Arterial Blood Ionized Calcium Digoxin Crossmatch 01/03/21 01/03/21 01/03/21 11:29 18:49 23:37 WBC RBC Hgb Hct MCV MCHC RDW Plt Count Lymph % (Auto) [place] % (Auto) Eos % (Auto) Lymph # (Auto) [place] # (Auto) Eos # (Auto) Seg Neutrophils % Seg Neuts % (Manual) Lymphocytes % (Manual) Monocytes % (Manual) Seg Neutrophils # Seg Neutrophils # Man Lymphocytes # (Manual) Monocytes # (Manual) PT INR ABG pH POC ABG pCO2 POC ABG pO2 ABG pO2 ABG HCO3 ABG O2 Saturation ABG Base Excess ABG Hemoglobin ABG Oxyhemoglobin ABG Sodium ABG Potassium ABG Chloride ABG Glucose Oxyhemoglobin Sodium Potassium Chloride Carbon Dioxide BUN Creatinine Glucose POC Glucose 232 H 129 H 140 H Lactic Acid Calcium Phosphorus Magnesium Iron TIBC Transferrin Ferritin Total Bilirubin AST ALT Alkaline Phosphatase Total Protein Albumin Triglycerides Arterial Blood Glucose Arterial Blood Ionized Calcium Digoxin Crossmatch 01/04/21 01/04/21 01/04/21 03:22 04:38 04:38 WBC 11.1 H RBC 2.89 L Hgb 8.9 L Hct 26.2 L MCV MCHC RDW 16.1 H Plt Count Lymph % (Auto) [place] % (Auto) Eos % (Auto) Lymph # (Auto) [place] # (Auto) Eos # (Auto) Seg Neutrophils % Seg Neuts % (Manual) Lymphocytes % (Manual) Monocytes % (Manual) Seg Neutrophils # Seg Neutrophils # Man Lymphocytes # (Manual) Monocytes # (Manual) PT INR ABG pH POC ABG pCO2 POC ABG pO2 82.3 L ABG pO2 ABG HCO3 ABG O2 Saturation ABG Base Excess ABG Hemoglobin 8.9 L ABG Oxyhemoglobin ABG Sodium 130.5 L ABG Potassium ABG Chloride ABG Glucose 124 H Oxyhemoglobin Sodium Potassium Chloride 95.5 L Carbon Dioxide BUN 87 H Creatinine 9.7 H Glucose 118 H POC Glucose Lactic Acid Calcium 7.7 L Phosphorus Magnesium Iron TIBC Transferrin Ferritin Total Bilirubin AST ALT Alkaline Phosphatase Total Protein Albumin Triglycerides Arterial Blood Glucose 124 H Arterial Blood Ionized Calcium 3.5 L Digoxin Crossmatch 01/04/21 01/04/21 01/04/21 05:39 12:04 18:04 WBC RBC Hgb Hct MCV MCHC RDW Plt Count Lymph % (Auto) [place] % (Auto) Eos % (Auto) Lymph # (Auto) [place] # (Auto) Eos # (Auto) Seg Neutrophils % Seg Neuts % (Manual) Lymphocytes % (Manual) Monocytes % (Manual) Seg Neutrophils # Seg Neutrophils # Man Lymphocytes # (Manual) Monocytes # (Manual) PT INR ABG pH POC ABG pCO2 POC ABG pO2 ABG pO2 ABG HCO3 ABG O2 Saturation ABG Base Excess ABG Hemoglobin ABG Oxyhemoglobin ABG Sodium ABG Potassium ABG Chloride ABG Glucose Oxyhemoglobin Sodium Potassium Chloride Carbon Dioxide BUN Creatinine Glucose POC Glucose 134 H 125 H 131 H Lactic Acid Calcium Phosphorus Magnesium Iron TIBC Transferrin Ferritin Total Bilirubin AST ALT Alkaline Phosphatase Total Protein Albumin Triglycerides Arterial Blood Glucose Arterial Blood Ionized Calcium Digoxin Crossmatch 01/04/21 01/05/21 01/05/21 23:41 03:23 04:49 WBC RBC Hgb Hct MCV MCHC RDW Plt Count Lymph % (Auto) [place] % (Auto) Eos % (Auto) Lymph # (Auto) [place] # (Auto) Eos # (Auto) Seg Neutrophils % Seg Neuts % (Manual) Lymphocytes % (Manual) Monocytes % (Manual) Seg Neutrophils # Seg Neutrophils # Man Lymphocytes # (Manual) Monocytes # (Manual) PT INR ABG pH POC ABG pCO2 POC ABG pO2 62.8 L ABG pO2 ABG HCO3 ABG O2 Saturation ABG Base Excess ABG Hemoglobin 9.5 L ABG Oxyhemoglobin 92.0 L ABG Sodium 130.1 L ABG Potassium ABG Chloride ABG Glucose 148 H Oxyhemoglobin Sodium Potassium Chloride 96.9 L Carbon Dioxide BUN 57 H Creatinine 6.7 H Glucose 135 H POC Glucose 132 H Lactic Acid Calcium 8.0 L Phosphorus Magnesium Iron TIBC Transferrin Ferritin Total Bilirubin AST ALT Alkaline Phosphatase Total Protein Albumin Triglycerides Arterial Blood Glucose 148 H Arterial Blood Ionized Calcium 4.1 L Digoxin Crossmatch 01/05/21 01/05/21 01/05/21 05:04 11:48 12:39 WBC RBC 3.03 L Hgb 9.3 L Hct 27.6 L MCV MCHC RDW 16.5 H Plt Count Lymph % (Auto) [place] % (Auto) Eos % (Auto) Lymph # (Auto) [place] # (Auto) Eos # (Auto) Seg Neutrophils % Seg Neuts % (Manual) Lymphocytes % (Manual) Monocytes % (Manual) Seg Neutrophils # Seg Neutrophils # Man Lymphocytes # (Manual) Monocytes # (Manual) PT INR ABG pH POC ABG pCO2 POC ABG pO2 ABG pO2 ABG HCO3 ABG O2 Saturation ABG Base Excess ABG Hemoglobin ABG Oxyhemoglobin ABG Sodium ABG Potassium ABG Chloride ABG Glucose Oxyhemoglobin Sodium Potassium Chloride Carbon Dioxide BUN Creatinine Glucose POC Glucose 147 H 162 H Lactic Acid Calcium Phosphorus Magnesium Iron TIBC Transferrin Ferritin Total Bilirubin AST ALT Alkaline Phosphatase Total Protein Albumin Triglycerides Arterial Blood Glucose Arterial Blood Ionized Calcium Digoxin Crossmatch 01/05/21 01/05/21 01/06/21 17:50 23:32 04:15 WBC RBC Hgb Hct MCV MCHC RDW Plt Count Lymph % (Auto) [place] % (Auto) Eos % (Auto) Lymph # (Auto) [place] # (Auto) Eos # (Auto) Seg Neutrophils % Seg Neuts % (Manual) Lymphocytes % (Manual) Monocytes % (Manual) Seg Neutrophils # Seg Neutrophils # Man Lymphocytes # (Manual) Monocytes # (Manual) PT INR ABG pH POC ABG pCO2 POC ABG pO2 ABG pO2 191.0 H ABG HCO3 ABG O2 Saturation 99.2 H ABG Base Excess ABG Hemoglobin 9.0 L ABG Oxyhemoglobin ABG Sodium ABG Potassium ABG Chloride ABG Glucose Oxyhemoglobin Sodium Potassium Chloride Carbon Dioxide BUN Creatinine Glucose POC Glucose 155 H 115 H Lactic Acid Calcium Phosphorus Magnesium Iron TIBC Transferrin Ferritin Total Bilirubin AST ALT Alkaline Phosphatase Total Protein Albumin Triglycerides Arterial Blood Glucose Arterial Blood Ionized Calcium Digoxin Crossmatch 01/06/21 01/06/21 01/06/21 04:45 05:56 07:03 WBC RBC 2.95 L Hgb 9.1 L Hct 26.8 L MCV MCHC RDW 16.8 H Plt Count Lymph % (Auto) [place] % (Auto) Eos % (Auto) Lymph # (Auto) [place] # (Auto) Eos # (Auto) Seg Neutrophils % Seg Neuts % (Manual) Lymphocytes % (Manual) Monocytes % (Manual) Seg Neutrophils # Seg Neutrophils # Man Lymphocytes # (Manual) Monocytes # (Manual) PT INR ABG pH POC ABG pCO2 POC ABG pO2 ABG pO2 ABG HCO3 ABG O2 Saturation ABG Base Excess ABG Hemoglobin ABG Oxyhemoglobin ABG Sodium ABG Potassium ABG Chloride ABG Glucose Oxyhemoglobin Sodium 135 L Potassium Chloride 95.9 L Carbon Dioxide BUN 82 H Creatinine 8.7 H Glucose 127 H POC Glucose 136 H Lactic Acid Calcium 8.3 L Phosphorus Magnesium Iron TIBC Transferrin Ferritin Total Bilirubin AST ALT Alkaline Phosphatase Total Protein Albumin Triglycerides Arterial Blood Glucose Arterial Blood Ionized Calcium Digoxin Crossmatch 01/06/21 01/06/21 01/06/21 07:10 11:04 13:38 WBC RBC Hgb Hct MCV MCHC RDW Plt Count Lymph % (Auto) [place] % (Auto) Eos % (Auto) Lymph # (Auto) [place] # (Auto) Eos # (Auto) Seg Neutrophils % Seg Neuts % (Manual) Lymphocytes % (Manual) Monocytes % (Manual) Seg Neutrophils # Seg Neutrophils # Man Lymphocytes # (Manual) Monocytes # (Manual) PT INR ABG pH POC ABG pCO2 POC ABG pO2 ABG pO2 ABG HCO3 ABG O2 Saturation ABG Base Excess ABG Hemoglobin ABG Oxyhemoglobin ABG Sodium ABG Potassium ABG Chloride ABG Glucose Oxyhemoglobin Sodium Potassium Chloride Carbon Dioxide BUN Creatinine Glucose POC Glucose 178 H 155 H Lactic Acid Calcium Phosphorus Magnesium Iron TIBC Transferrin Ferritin Total Bilirubin AST ALT Alkaline Phosphatase Total Protein Albumin Triglycerides Arterial Blood Glucose Arterial Blood Ionized Calcium Digoxin Crossmatch See Detail 01/06/21 01/06/21 01/07/21 17:35 22:21 03:07 WBC RBC Hgb Hct MCV MCHC RDW Plt Count Lymph % (Auto) [place] % (Auto) Eos % (Auto) Lymph # (Auto) [place] # (Auto) Eos # (Auto) Seg Neutrophils % Seg Neuts % (Manual) Lymphocytes % (Manual) Monocytes % (Manual) Seg Neutrophils # Seg Neutrophils # Man Lymphocytes # (Manual) Monocytes # (Manual) PT INR ABG pH POC ABG pCO2 POC ABG pO2 ABG pO2 ABG HCO3 ABG O2 Saturation ABG Base Excess ABG Hemoglobin 11.9 L ABG Oxyhemoglobin ABG Sodium 135.6 L ABG Potassium ABG Chloride ABG Glucose 181 H Oxyhemoglobin Sodium Potassium Chloride Carbon Dioxide BUN Creatinine Glucose POC Glucose 138 H 202 H Lactic Acid Calcium Phosphorus Magnesium Iron TIBC Transferrin Ferritin Total Bilirubin AST ALT Alkaline Phosphatase Total Protein Albumin Triglycerides Arterial Blood Glucose 181 H Arterial Blood Ionized Calcium 4.3 L Digoxin Crossmatch 01/07/21 01/07/21 01/07/21 04:50 05:21 08:37 WBC 12.4 H RBC Hgb 11.1 L Hct 33.3 L D MCV MCHC RDW 17.0 H Plt Count Lymph % (Auto) 3.2 L [place] % (Auto) 9.4 H Eos % (Auto) Lymph # (Auto) 0.4 L [place] # (Auto) 1.2 H Eos # (Auto) Seg Neutrophils % 86.6 H Seg Neuts % (Manual) Lymphocytes % (Manual) Monocytes % (Manual) Seg Neutrophils # 10.7 H Seg Neutrophils # Man Lymphocytes # (Manual) Monocytes # (Manual) PT INR ABG pH POC ABG pCO2 POC ABG pO2 ABG pO2 ABG HCO3 ABG O2 Saturation ABG Base Excess ABG Hemoglobin ABG Oxyhemoglobin ABG Sodium ABG Potassium ABG Chloride ABG Glucose Oxyhemoglobin Sodium Potassium Chloride Carbon Dioxide BUN 60 H Creatinine 6.3 H Glucose 154 H POC Glucose 177 H Lactic Acid Calcium 8.3 L Phosphorus Magnesium Iron TIBC Transferrin Ferritin Total Bilirubin AST ALT Alkaline Phosphatase Total Protein Albumin Triglycerides Arterial Blood Glucose Arterial Blood Ionized Calcium Digoxin Crossmatch 01/07/21 01/07/21 01/07/21 11:21 12:19 17:11 WBC RBC Hgb Hct MCV MCHC RDW Plt Count Lymph % (Auto) [place] % (Auto) Eos % (Auto) Lymph # (Auto) [place] # (Auto) Eos # (Auto) Seg Neutrophils % Seg Neuts % (Manual) Lymphocytes % (Manual) Monocytes % (Manual) Seg Neutrophils # Seg Neutrophils # Man Lymphocytes # (Manual) Monocytes # (Manual) PT INR ABG pH POC ABG pCO2 POC ABG pO2 ABG pO2 ABG HCO3 ABG O2 Saturation ABG Base Excess ABG Hemoglobin ABG Oxyhemoglobin ABG Sodium ABG Potassium ABG Chloride ABG Glucose Oxyhemoglobin Sodium Potassium Chloride Carbon Dioxide BUN Creatinine Glucose POC Glucose 144 H 137 H 119 H Lactic Acid Calcium Phosphorus Magnesium Iron TIBC Transferrin Ferritin Total Bilirubin AST ALT Alkaline Phosphatase Total Protein Albumin Triglycerides Arterial Blood Glucose Arterial Blood Ionized Calcium Digoxin Crossmatch 01/07/21 01/07/21 01/08/21 17:14 23:39 04:34 WBC RBC Hgb Hct MCV MCHC RDW Plt Count Lymph % (Auto) [place] % (Auto) Eos % (Auto) Lymph # (Auto) [place] # (Auto) Eos # (Auto) Seg Neutrophils % Seg Neuts % (Manual) Lymphocytes % (Manual) Monocytes % (Manual) Seg Neutrophils # Seg Neutrophils # Man Lymphocytes # (Manual) Monocytes # (Manual) PT INR ABG pH 7.345 L POC ABG pCO2 POC ABG pO2 ABG pO2 67.4 L ABG HCO3 ABG O2 Saturation 94.3 L ABG Base Excess -3.9 L ABG Hemoglobin 8.9 L ABG Oxyhemoglobin ABG Sodium ABG Potassium ABG Chloride ABG Glucose Oxyhemoglobin 92.3 L Sodium Potassium Chloride Carbon Dioxide 20 L BUN 93 H Creatinine 8.8 H Glucose 120 H POC Glucose 129 H Lactic Acid Calcium Phosphorus Magnesium Iron TIBC Transferrin Ferritin Total Bilirubin AST ALT Alkaline Phosphatase 133 H Total Protein 5.4 L Albumin 1.9 L Triglycerides Arterial Blood Glucose Arterial Blood Ionized Calcium Digoxin Crossmatch 01/08/21 01/08/21 01/08/21 05:26 11:38 17:19 WBC RBC Hgb Hct MCV MCHC RDW Plt Count Lymph % (Auto) [place] % (Auto) Eos % (Auto) Lymph # (Auto) [place] # (Auto) Eos # (Auto) Seg Neutrophils % Seg Neuts % (Manual) Lymphocytes % (Manual) Monocytes % (Manual) Seg Neutrophils # Seg Neutrophils # Man Lymphocytes # (Manual) Monocytes # (Manual) PT INR ABG pH POC ABG pCO2 POC ABG pO2 ABG pO2 ABG HCO3 ABG O2 Saturation ABG Base Excess ABG Hemoglobin ABG Oxyhemoglobin ABG Sodium ABG Potassium ABG Chloride ABG Glucose Oxyhemoglobin Sodium Potassium Chloride Carbon Dioxide BUN Creatinine Glucose POC Glucose 125 H 146 H 136 H Lactic Acid Calcium Phosphorus Magnesium Iron TIBC Transferrin Ferritin Total Bilirubin AST ALT Alkaline Phosphatase Total Protein Albumin Triglycerides Arterial Blood Glucose Arterial Blood Ionized Calcium Digoxin Crossmatch 01/08/21 01/09/21 01/09/21 23:52 05:13 05:21 WBC RBC Hgb Hct MCV MCHC RDW Plt Count Lymph % (Auto) [place] % (Auto) Eos % (Auto) Lymph # (Auto) [place] # (Auto) Eos # (Auto) Seg Neutrophils % Seg Neuts % (Manual) Lymphocytes % (Manual) Monocytes % (Manual) Seg Neutrophils # Seg Neutrophils # Man Lymphocytes # (Manual) Monocytes # (Manual) PT INR ABG pH POC ABG pCO2 POC ABG pO2 ABG pO2 ABG HCO3 ABG O2 Saturation ABG Base Excess ABG Hemoglobin ABG Oxyhemoglobin ABG Sodium ABG Potassium ABG Chloride ABG Glucose Oxyhemoglobin Sodium Potassium Chloride Carbon Dioxide 16 L BUN 123 H Creatinine 10.8 H Glucose 145 H POC Glucose 143 H 144 H Lactic Acid Calcium Phosphorus 5.00 H D Magnesium 2.40 H Iron TIBC Transferrin Ferritin Total Bilirubin AST ALT Alkaline Phosphatase Total Protein Albumin Triglycerides Arterial Blood Glucose Arterial Blood Ionized Calcium Digoxin Crossmatch 01/09/21 01/09/21 01/09/21 12:08 17:20 23:56 WBC RBC Hgb Hct MCV MCHC RDW Plt Count Lymph % (Auto) [place] % (Auto) Eos % (Auto) Lymph # (Auto) [place] # (Auto) Eos # (Auto) Seg Neutrophils % Seg Neuts % (Manual) Lymphocytes % (Manual) Monocytes % (Manual) Seg Neutrophils # Seg Neutrophils # Man Lymphocytes # (Manual) Monocytes # (Manual) PT INR ABG pH POC ABG pCO2 POC ABG pO2 ABG pO2 ABG HCO3 ABG O2 Saturation ABG Base Excess ABG Hemoglobin ABG Oxyhemoglobin ABG Sodium ABG Potassium ABG Chloride ABG Glucose Oxyhemoglobin Sodium Potassium Chloride Carbon Dioxide BUN Creatinine Glucose POC Glucose 153 H 160 H 158 H Lactic Acid Calcium Phosphorus Magnesium Iron TIBC Transferrin Ferritin Total Bilirubin AST ALT Alkaline Phosphatase Total Protein Albumin Triglycerides Arterial Blood Glucose Arterial Blood Ionized Calcium Digoxin Crossmatch 01/10/21 01/10/21 01/10/21 04:52 05:44 07:41 WBC RBC Hgb Hct MCV MCHC RDW Plt Count Lymph % (Auto) [place] % (Auto) Eos % (Auto) Lymph # (Auto) [place] # (Auto) Eos # (Auto) Seg Neutrophils % Seg Neuts % (Manual) Lymphocytes % (Manual) Monocytes % (Manual) Seg Neutrophils # Seg Neutrophils # Man Lymphocytes # (Manual) Monocytes # (Manual) PT INR ABG pH POC ABG pCO2 POC ABG pO2 ABG pO2 ABG HCO3 ABG O2 Saturation ABG Base Excess ABG Hemoglobin ABG Oxyhemoglobin ABG Sodium ABG Potassium ABG Chloride ABG Glucose Oxyhemoglobin Sodium 135 L Potassium 3.5 L D Chloride 95.0 L Carbon Dioxide 21 L BUN 93 H Creatinine 8.3 H Glucose 127 H POC Glucose 135 H 157 H Lactic Acid Calcium Phosphorus Magnesium Iron TIBC Transferrin Ferritin Total Bilirubin AST ALT Alkaline Phosphatase Total Protein Albumin Triglycerides Arterial Blood Glucose Arterial Blood Ionized Calcium Digoxin Crossmatch 01/10/21 01/10/21 01/10/21 09:26 12:03 17:44 WBC 18.2 H RBC 3.14 L Hgb 9.7 L Hct 28.2 L MCV MCHC RDW 16.5 H Plt Count Lymph % (Auto) [place] % (Auto) Eos % (Auto) Lymph # (Auto) [place] # (Auto) Eos # (Auto) Seg Neutrophils % Seg Neuts % (Manual) 95.0 H Lymphocytes % (Manual) 3.0 L Monocytes % (Manual) Seg Neutrophils # Seg Neutrophils # Man 17.3 H Lymphocytes # (Manual) 0.5 L Monocytes # (Manual) PT INR ABG pH POC ABG pCO2 POC ABG pO2 ABG pO2 ABG HCO3 ABG O2 Saturation ABG Base Excess ABG Hemoglobin ABG Oxyhemoglobin ABG Sodium ABG Potassium ABG Chloride ABG Glucose Oxyhemoglobin Sodium Potassium Chloride Carbon Dioxide BUN Creatinine Glucose POC Glucose 163 H 171 H Lactic Acid Calcium Phosphorus Magnesium Iron TIBC Transferrin Ferritin Total Bilirubin AST ALT Alkaline Phosphatase Total Protein Albumin Triglycerides Arterial Blood Glucose Arterial Blood Ionized Calcium Digoxin Crossmatch 01/10/21 01/11/21 01/11/21 23:50 05:18 05:18 WBC RBC Hgb Hct MCV MCHC RDW Plt Count Lymph % (Auto) [place] % (Auto) Eos % (Auto) Lymph # (Auto) [place] # (Auto) Eos # (Auto) Seg Neutrophils % Seg Neuts % (Manual) Lymphocytes % (Manual) Monocytes % (Manual) Seg Neutrophils # Seg Neutrophils # Man Lymphocytes # (Manual) Monocytes # (Manual) PT INR ABG pH POC ABG pCO2 POC ABG pO2 ABG pO2 ABG HCO3 ABG O2 Saturation ABG Base Excess ABG Hemoglobin ABG Oxyhemoglobin ABG Sodium ABG Potassium ABG Chloride ABG Glucose Oxyhemoglobin Sodium 136 L Potassium Chloride 94.6 L Carbon Dioxide 19 L BUN 145 H Creatinine 10.6 H Glucose 152 H POC Glucose 151 H Lactic Acid Calcium Phosphorus 6.00 H D Magnesium Iron TIBC Transferrin Ferritin Total Bilirubin AST ALT Alkaline Phosphatase Total Protein Albumin Triglycerides Arterial Blood Glucose Arterial Blood Ionized Calcium Digoxin 0.8 L Crossmatch 01/11/21 01/11/21 01/11/21 05:18 05:19 11:28 WBC 17.4 H RBC 3.34 L Hgb 10.2 L Hct 29.7 L MCV MCHC RDW 15.9 H Plt Count Lymph % (Auto) [place] % (Auto) Eos % (Auto) Lymph # (Auto) [place] # (Auto) Eos # (Auto) Seg Neutrophils % Seg Neuts % (Manual) Lymphocytes % (Manual) Monocytes % (Manual) Seg Neutrophils # Seg Neutrophils # Man Lymphocytes # (Manual) Monocytes # (Manual) PT INR ABG pH POC ABG pCO2 POC ABG pO2 ABG pO2 ABG HCO3 ABG O2 Saturation ABG Base Excess ABG Hemoglobin ABG Oxyhemoglobin ABG Sodium ABG Potassium ABG Chloride ABG Glucose Oxyhemoglobin Sodium Potassium Chloride Carbon Dioxide BUN Creatinine Glucose POC Glucose 149 H 178 H Lactic Acid Calcium Phosphorus Magnesium Iron TIBC Transferrin Ferritin Total Bilirubin AST ALT Alkaline Phosphatase Total Protein Albumin Triglycerides Arterial Blood Glucose Arterial Blood Ionized Calcium Digoxin Crossmatch 01/11/21 01/11/21 01/12/21 17:31 23:14 05:18 WBC RBC Hgb Hct MCV MCHC RDW Plt Count Lymph % (Auto) [place] % (Auto) Eos % (Auto) Lymph # (Auto) [place] # (Auto) Eos # (Auto) Seg Neutrophils % Seg Neuts % (Manual) Lymphocytes % (Manual) Monocytes % (Manual) Seg Neutrophils # Seg Neutrophils # Man Lymphocytes # (Manual) Monocytes # (Manual) PT INR ABG pH POC ABG pCO2 POC ABG pO2 ABG pO2 ABG HCO3 ABG O2 Saturation ABG Base Excess ABG Hemoglobin ABG Oxyhemoglobin ABG Sodium ABG Potassium ABG Chloride ABG Glucose Oxyhemoglobin Sodium Potassium Chloride Carbon Dioxide BUN Creatinine Glucose POC Glucose 158 H 145 H 148 H Lactic Acid Calcium Phosphorus Magnesium Iron TIBC Transferrin Ferritin Total Bilirubin AST ALT Alkaline Phosphatase Total Protein Albumin Triglycerides Arterial Blood Glucose Arterial Blood Ionized Calcium Digoxin Crossmatch 01/12/21 01/12/21 01/12/21 06:50 10:45 13:34 WBC RBC Hgb Hct MCV MCHC RDW Plt Count Lymph % (Auto) [place] % (Auto) Eos % (Auto) Lymph # (Auto) [place] # (Auto) Eos # (Auto) Seg Neutrophils % Seg Neuts % (Manual) Lymphocytes % (Manual) Monocytes % (Manual) Seg Neutrophils # Seg Neutrophils # Man Lymphocytes # (Manual) Monocytes # (Manual) PT INR ABG pH POC ABG pCO2 POC ABG pO2 ABG pO2 ABG HCO3 ABG O2 Saturation ABG Base Excess ABG Hemoglobin ABG Oxyhemoglobin ABG Sodium ABG Potassium ABG Chloride ABG Glucose Oxyhemoglobin Sodium Potassium 2.9 L* D Chloride 94.8 L Carbon Dioxide BUN 102 H Creatinine 8.3 H Glucose 139 H POC Glucose 151 H 134 H Lactic Acid Calcium 8.1 L Phosphorus 5.00 H Magnesium Iron TIBC Transferrin Ferritin Total Bilirubin AST ALT Alkaline Phosphatase Total Protein Albumin Triglycerides Arterial Blood Glucose Arterial Blood Ionized Calcium Digoxin Crossmatch 01/12/21 01/12/21 01/13/21 16:59 23:06 03:45 WBC RBC Hgb Hct MCV MCHC RDW Plt Count Lymph % (Auto) [place] % (Auto) Eos % (Auto) Lymph # (Auto) [place] # (Auto) Eos # (Auto) Seg Neutrophils % Seg Neuts % (Manual) Lymphocytes % (Manual) Monocytes % (Manual) Seg Neutrophils # Seg Neutrophils # Man Lymphocytes # (Manual) Monocytes # (Manual) PT INR ABG pH POC ABG pCO2 POC ABG pO2 ABG pO2 ABG HCO3 ABG O2 Saturation ABG Base Excess ABG Hemoglobin ABG Oxyhemoglobin ABG Sodium ABG Potassium ABG Chloride ABG Glucose Oxyhemoglobin Sodium 136 L Potassium 3.4 L Chloride 92.6 L Carbon Dioxide BUN 134 H Creatinine 10.4 H Glucose 126 H POC Glucose 108 H 135 H Lactic Acid Calcium 8.3 L Phosphorus 5.60 H Magnesium 1.50 L Iron TIBC Transferrin Ferritin Total Bilirubin AST ALT Alkaline Phosphatase Total Protein Albumin Triglycerides Arterial Blood Glucose Arterial Blood Ionized Calcium Digoxin Crossmatch 01/13/21 01/13/21 01/13/21 03:45 05:55 11:59 WBC 17.6 H RBC 3.33 L Hgb 10.2 L Hct 29.5 L MCV MCHC 35 H RDW 15.5 H Plt Count Lymph % (Auto) 4.4 L [place] % (Auto) 10.3 H Eos % (Auto) Lymph # (Auto) 0.8 L [place] # (Auto) 1.8 H Eos # (Auto) Seg Neutrophils % 84.2 H Seg Neuts % (Manual) Lymphocytes % (Manual) Monocytes % (Manual) Seg Neutrophils # 14.8 H Seg Neutrophils # Man Lymphocytes # (Manual) Monocytes # (Manual) PT INR ABG pH POC ABG pCO2 POC ABG pO2 ABG pO2 ABG HCO3 ABG O2 Saturation ABG Base Excess ABG Hemoglobin ABG Oxyhemoglobin ABG Sodium ABG Potassium ABG Chloride ABG Glucose Oxyhemoglobin Sodium Potassium Chloride Carbon Dioxide BUN Creatinine Glucose POC Glucose 134 H 141 H Lactic Acid Calcium Phosphorus Magnesium Iron TIBC Transferrin Ferritin Total Bilirubin AST ALT Alkaline Phosphatase Total Protein Albumin Triglycerides Arterial Blood Glucose Arterial Blood Ionized Calcium Digoxin Crossmatch 01/13/21 01/14/21 01/14/21 23:09 05:39 05:57 WBC RBC Hgb Hct MCV MCHC RDW Plt Count Lymph % (Auto) [place] % (Auto) Eos % (Auto) Lymph # (Auto) [place] # (Auto) Eos # (Auto) Seg Neutrophils % Seg Neuts % (Manual) Lymphocytes % (Manual) Monocytes % (Manual) Seg Neutrophils # Seg Neutrophils # Man Lymphocytes # (Manual) Monocytes # (Manual) PT INR ABG pH POC ABG pCO2 POC ABG pO2 ABG pO2 ABG HCO3 ABG O2 Saturation ABG Base Excess ABG Hemoglobin ABG Oxyhemoglobin ABG Sodium ABG Potassium ABG Chloride ABG Glucose Oxyhemoglobin Sodium Potassium Chloride 97.6 L Carbon Dioxide BUN 81 H Creatinine 7.6 H Glucose 193 H POC Glucose 106 H 190 H Lactic Acid Calcium 8.2 L Phosphorus 4.60 H Magnesium Iron TIBC Transferrin Ferritin Total Bilirubin AST ALT Alkaline Phosphatase Total Protein Albumin Triglycerides Arterial Blood Glucose Arterial Blood Ionized Calcium Digoxin Crossmatch 01/14/21 01/14/21 01/14/21 10:00 16:56 16:59 WBC 17.0 H RBC 3.10 L Hgb 9.6 L Hct 27.4 L MCV MCHC 35 H RDW 15.6 H Plt Count Lymph % (Auto) [place] % (Auto) Eos % (Auto) Lymph # (Auto) [place] # (Auto) Eos # (Auto) Seg Neutrophils % Seg Neuts % (Manual) Lymphocytes % (Manual) Monocytes % (Manual) Seg Neutrophils # Seg Neutrophils # Man Lymphocytes # (Manual) Monocytes # (Manual) PT INR ABG pH POC ABG pCO2 POC ABG pO2 ABG pO2 ABG HCO3 ABG O2 Saturation ABG Base Excess ABG Hemoglobin ABG Oxyhemoglobin ABG Sodium ABG Potassium ABG Chloride ABG Glucose Oxyhemoglobin Sodium Potassium Chloride Carbon Dioxide BUN Creatinine Glucose POC Glucose 37 L 34 L Lactic Acid Calcium Phosphorus Magnesium Iron TIBC Transferrin Ferritin Total Bilirubin AST ALT Alkaline Phosphatase Total Protein Albumin Triglycerides Arterial Blood Glucose Arterial Blood Ionized Calcium Digoxin Crossmatch 01/14/21 01/14/21 01/14/21 17:02 18:34 23:17 WBC RBC Hgb Hct MCV MCHC RDW Plt Count Lymph % (Auto) [place] % (Auto) Eos % (Auto) Lymph # (Auto) [place] # (Auto) Eos # (Auto) Seg Neutrophils % Seg Neuts % (Manual) Lymphocytes % (Manual) Monocytes % (Manual) Seg Neutrophils # Seg Neutrophils # Man Lymphocytes # (Manual) Monocytes # (Manual) PT INR ABG pH POC ABG pCO2 POC ABG pO2 ABG pO2 ABG HCO3 ABG O2 Saturation ABG Base Excess ABG Hemoglobin ABG Oxyhemoglobin ABG Sodium ABG Potassium ABG Chloride ABG Glucose Oxyhemoglobin Sodium Potassium Chloride Carbon Dioxide BUN Creatinine Glucose POC Glucose 35 L 143 H 53 L Lactic Acid Calcium Phosphorus Magnesium Iron TIBC Transferrin Ferritin Total Bilirubin AST ALT Alkaline Phosphatase Total Protein Albumin Triglycerides Arterial Blood Glucose Arterial Blood Ionized Calcium Digoxin Crossmatch 01/15/21 01/15/21 01/15/21 00:34 04:00 04:00 WBC 15.9 H RBC 3.02 L Hgb 9.3 L Hct 27.3 L MCV MCHC RDW 15.6 H Plt Count Lymph % (Auto) [place] % (Auto) Eos % (Auto) Lymph # (Auto) [place] # (Auto) Eos # (Auto) Seg Neutrophils % Seg Neuts % (Manual) Lymphocytes % (Manual) Monocytes % (Manual) Seg Neutrophils # Seg Neutrophils # Man Lymphocytes # (Manual) Monocytes # (Manual) PT INR ABG pH POC ABG pCO2 POC ABG pO2 ABG pO2 ABG HCO3 ABG O2 Saturation ABG Base Excess ABG Hemoglobin ABG Oxyhemoglobin ABG Sodium ABG Potassium ABG Chloride ABG Glucose Oxyhemoglobin Sodium 136 L Potassium Chloride 94.3 L Carbon Dioxide BUN 117 H Creatinine 9.9 H Glucose 217 H POC Glucose 181 H Lactic Acid Calcium 8.3 L Phosphorus Magnesium Iron TIBC Transferrin Ferritin Total Bilirubin AST ALT Alkaline Phosphatase Total Protein Albumin Triglycerides Arterial Blood Glucose Arterial Blood Ionized Calcium Digoxin Crossmatch 01/15/21 01/15/21 01/15/21 05:29 11:51 23:13 WBC RBC Hgb Hct MCV MCHC RDW Plt Count Lymph % (Auto) [place] % (Auto) Eos % (Auto) Lymph # (Auto) [place] # (Auto) Eos # (Auto) Seg Neutrophils % Seg Neuts % (Manual) Lymphocytes % (Manual) Monocytes % (Manual) Seg Neutrophils # Seg Neutrophils # Man Lymphocytes # (Manual) Monocytes # (Manual) PT INR ABG pH POC ABG pCO2 POC ABG pO2 ABG pO2 ABG HCO3 ABG O2 Saturation ABG Base Excess ABG Hemoglobin ABG Oxyhemoglobin ABG Sodium ABG Potassium ABG Chloride ABG Glucose Oxyhemoglobin Sodium Potassium Chloride Carbon Dioxide BUN Creatinine Glucose POC Glucose 221 H 62 L 154 H Lactic Acid Calcium Phosphorus Magnesium Iron TIBC Transferrin Ferritin Total Bilirubin AST ALT Alkaline Phosphatase Total Protein Albumin Triglycerides Arterial Blood Glucose Arterial Blood Ionized Calcium Digoxin Crossmatch 01/16/21 01/16/21 01/16/21 05:04 06:44 06:44 WBC 14.8 H RBC 2.76 L Hgb 8.2 L Hct 24.8 L MCV MCHC RDW 15.6 H Plt Count Lymph % (Auto) [place] % (Auto) Eos % (Auto) Lymph # (Auto) [place] # (Auto) Eos # (Auto) Seg Neutrophils % Seg Neuts % (Manual) Lymphocytes % (Manual) Monocytes % (Manual) Seg Neutrophils # Seg Neutrophils # Man Lymphocytes # (Manual) Monocytes # (Manual) PT INR ABG pH POC ABG pCO2 POC ABG pO2 ABG pO2 ABG HCO3 ABG O2 Saturation ABG Base Excess ABG Hemoglobin ABG Oxyhemoglobin ABG Sodium ABG Potassium ABG Chloride ABG Glucose Oxyhemoglobin Sodium 133 L Potassium Chloride 92.3 L Carbon Dioxide 20 L BUN 160 H Creatinine 12.1 H Glucose 177 H POC Glucose 168 H Lactic Acid Calcium 8.1 L Phosphorus 5.50 H Magnesium 2.50 H Iron TIBC Transferrin Ferritin Total Bilirubin AST ALT Alkaline Phosphatase Total Protein Albumin Triglycerides Arterial Blood Glucose Arterial Blood Ionized Calcium Digoxin Crossmatch 01/16/21 01/17/21 01/17/21 23:20 05:14 05:14 WBC 12.7 H RBC 2.75 L Hgb 8.5 L Hct 24.6 L MCV MCHC 35 H RDW 15.4 H Plt Count Lymph % (Auto) [place] % (Auto) Eos % (Auto) Lymph # (Auto) [place] # (Auto) Eos # (Auto) Seg Neutrophils % Seg Neuts % (Manual) Lymphocytes % (Manual) Monocytes % (Manual) Seg Neutrophils # Seg Neutrophils # Man Lymphocytes # (Manual) Monocytes # (Manual) PT INR ABG pH POC ABG pCO2 POC ABG pO2 ABG pO2 ABG HCO3 ABG O2 Saturation ABG Base Excess ABG Hemoglobin ABG Oxyhemoglobin ABG Sodium ABG Potassium ABG Chloride ABG Glucose Oxyhemoglobin Sodium Potassium Chloride 97.9 L Carbon Dioxide BUN 84 H Creatinine 7.8 H Glucose 176 H POC Glucose 153 H Lactic Acid Calcium 8.0 L Phosphorus Magnesium Iron TIBC Transferrin Ferritin Total Bilirubin AST ALT Alkaline Phosphatase Total Protein Albumin Triglycerides Arterial Blood Glucose Arterial Blood Ionized Calcium Digoxin Crossmatch 01/17/21 01/17/21 01/18/21 05:33 11:58 00:07 WBC RBC Hgb Hct MCV MCHC RDW Plt Count Lymph % (Auto) [place] % (Auto) Eos % (Auto) Lymph # (Auto) [place] # (Auto) Eos # (Auto) Seg Neutrophils % Seg Neuts % (Manual) Lymphocytes % (Manual) Monocytes % (Manual) Seg Neutrophils # Seg Neutrophils # Man Lymphocytes # (Manual) Monocytes # (Manual) PT INR ABG pH POC ABG pCO2 POC ABG pO2 ABG pO2 ABG HCO3 ABG O2 Saturation ABG Base Excess ABG Hemoglobin ABG Oxyhemoglobin ABG Sodium ABG Potassium ABG Chloride ABG Glucose Oxyhemoglobin Sodium Potassium Chloride Carbon Dioxide BUN Creatinine Glucose POC Glucose 162 H 64 L 146 H Lactic Acid Calcium Phosphorus Magnesium Iron TIBC Transferrin Ferritin Total Bilirubin AST ALT Alkaline Phosphatase Total Protein Albumin Triglycerides Arterial Blood Glucose Arterial Blood Ionized Calcium Digoxin Crossmatch 01/18/21 01/18/21 01/18/21 04:19 04:19 06:15 WBC 15.6 H RBC 3.00 L Hgb 9.2 L Hct 26.8 L MCV MCHC 35 H RDW 15.6 H Plt Count Lymph % (Auto) [place] % (Auto) Eos % (Auto) Lymph # (Auto) [place] # (Auto) Eos # (Auto) Seg Neutrophils % Seg Neuts % (Manual) Lymphocytes % (Manual) Monocytes % (Manual) Seg Neutrophils # Seg Neutrophils # Man Lymphocytes # (Manual) Monocytes # (Manual) PT INR ABG pH POC ABG pCO2 POC ABG pO2 ABG pO2 ABG HCO3 ABG O2 Saturation ABG Base Excess ABG Hemoglobin ABG Oxyhemoglobin ABG Sodium ABG Potassium ABG Chloride ABG Glucose Oxyhemoglobin Sodium Potassium Chloride 96.2 L Carbon Dioxide BUN 117 H Creatinine 10.0 H Glucose 165 H POC Glucose 189 H Lactic Acid Calcium Phosphorus 4.70 H D Magnesium Iron TIBC Transferrin Ferritin Total Bilirubin AST ALT Alkaline Phosphatase Total Protein Albumin Triglycerides Arterial Blood Glucose Arterial Blood Ionized Calcium Digoxin Crossmatch 01/18/21 01/18/21 01/18/21 11:53 13:44 15:08 WBC RBC Hgb Hct MCV MCHC RDW Plt Count Lymph % (Auto) [place] % (Auto) Eos % (Auto) Lymph # (Auto) [place] # (Auto) Eos # (Auto) Seg Neutrophils % Seg Neuts % (Manual) Lymphocytes % (Manual) Monocytes % (Manual) Seg Neutrophils # Seg Neutrophils # Man Lymphocytes # (Manual) Monocytes # (Manual) PT INR ABG pH POC ABG pCO2 POC ABG pO2 ABG pO2 ABG HCO3 ABG O2 Saturation ABG Base Excess ABG Hemoglobin ABG Oxyhemoglobin ABG Sodium ABG Potassium ABG Chloride ABG Glucose Oxyhemoglobin Sodium Potassium Chloride Carbon Dioxide BUN Creatinine Glucose POC Glucose 69 L 50 L 56 L Lactic Acid Calcium Phosphorus Magnesium Iron TIBC Transferrin Ferritin Total Bilirubin AST ALT Alkaline Phosphatase Total Protein Albumin Triglycerides Arterial Blood Glucose Arterial Blood Ionized Calcium Digoxin Crossmatch 01/18/21 01/19/21 01/19/21 17:50 04:55 08:56 WBC 12.7 H RBC 2.89 L Hgb 8.7 L Hct 25.6 L MCV MCHC RDW 15.5 H Plt Count Lymph % (Auto) [place] % (Auto) Eos % (Auto) Lymph # (Auto) [place] # (Auto) Eos # (Auto) Seg Neutrophils % Seg Neuts % (Manual) Lymphocytes % (Manual) Monocytes % (Manual) Seg Neutrophils # Seg Neutrophils # Man Lymphocytes # (Manual) Monocytes # (Manual) PT INR ABG pH POC ABG pCO2 POC ABG pO2 ABG pO2 ABG HCO3 ABG O2 Saturation ABG Base Excess ABG Hemoglobin ABG Oxyhemoglobin ABG Sodium ABG Potassium ABG Chloride ABG Glucose Oxyhemoglobin Sodium Potassium Chloride Carbon Dioxide BUN Creatinine Glucose POC Glucose 137 H 120 H Lactic Acid Calcium Phosphorus Magnesium Iron TIBC Transferrin Ferritin Total Bilirubin AST ALT Alkaline Phosphatase Total Protein Albumin Triglycerides Arterial Blood Glucose Arterial Blood Ionized Calcium Digoxin Crossmatch 01/19/21 01/19/21 01/19/21 08:56 11:33 17:32 WBC RBC Hgb Hct MCV MCHC RDW Plt Count Lymph % (Auto) [place] % (Auto) Eos % (Auto) Lymph # (Auto) [place] # (Auto) Eos # (Auto) Seg Neutrophils % Seg Neuts % (Manual) Lymphocytes % (Manual) Monocytes % (Manual) Seg Neutrophils # Seg Neutrophils # Man Lymphocytes # (Manual) Monocytes # (Manual) PT INR ABG pH POC ABG pCO2 POC ABG pO2 ABG pO2 ABG HCO3 ABG O2 Saturation ABG Base Excess ABG Hemoglobin ABG Oxyhemoglobin ABG Sodium ABG Potassium ABG Chloride ABG Glucose Oxyhemoglobin Sodium Potassium Chloride Carbon Dioxide BUN 66 H Creatinine 7.7 H Glucose 119 H POC Glucose 160 H 125 H Lactic Acid Calcium 8.3 L Phosphorus Magnesium Iron TIBC Transferrin Ferritin Total Bilirubin AST ALT Alkaline Phosphatase Total Protein Albumin Triglycerides Arterial Blood Glucose Arterial Blood Ionized Calcium Digoxin Crossmatch 01/19/21 01/20/21 01/20/21 23:30 03:35 03:35 WBC 12.0 H RBC 2.62 L Hgb 8.3 L Hct 23.2 L MCV MCHC 36 H RDW Plt Count Lymph % (Auto) [place] % (Auto) Eos % (Auto) Lymph # (Auto) [place] # (Auto) Eos # (Auto) Seg Neutrophils % Seg Neuts % (Manual) Lymphocytes % (Manual) Monocytes % (Manual) Seg Neutrophils # Seg Neutrophils # Man Lymphocytes # (Manual) Monocytes # (Manual) PT INR ABG pH POC ABG pCO2 POC ABG pO2 ABG pO2 ABG HCO3 ABG O2 Saturation ABG Base Excess ABG Hemoglobin ABG Oxyhemoglobin ABG Sodium ABG Potassium ABG Chloride ABG Glucose Oxyhemoglobin Sodium Potassium Chloride Carbon Dioxide BUN 46 H Creatinine 5.9 H Glucose 128 H POC Glucose 127 H Lactic Acid Calcium Phosphorus Magnesium Iron TIBC Transferrin Ferritin Total Bilirubin AST ALT Alkaline Phosphatase Total Protein Albumin Triglycerides Arterial Blood Glucose Arterial Blood Ionized Calcium Digoxin Crossmatch 01/20/21 01/20/21 01/20/21 06:19 11:55 18:00 WBC RBC Hgb Hct MCV MCHC RDW Plt Count Lymph % (Auto) [place] % (Auto) Eos % (Auto) Lymph # (Auto) [place] # (Auto) Eos # (Auto) Seg Neutrophils % Seg Neuts % (Manual) Lymphocytes % (Manual) Monocytes % (Manual) Seg Neutrophils # Seg Neutrophils # Man Lymphocytes # (Manual) Monocytes # (Manual) PT INR ABG pH POC ABG pCO2 POC ABG pO2 ABG pO2 ABG HCO3 ABG O2 Saturation ABG Base Excess ABG Hemoglobin ABG Oxyhemoglobin ABG Sodium ABG Potassium ABG Chloride ABG Glucose Oxyhemoglobin Sodium Potassium Chloride Carbon Dioxide BUN Creatinine Glucose POC Glucose 119 H 128 H 115 H Lactic Acid Calcium Phosphorus Magnesium Iron TIBC Transferrin Ferritin Total Bilirubin AST ALT Alkaline Phosphatase Total Protein Albumin Triglycerides Arterial Blood Glucose Arterial Blood Ionized Calcium Digoxin Crossmatch 01/20/21 01/21/21 01/21/21 23:26 04:39 05:27 WBC RBC Hgb Hct MCV MCHC RDW Plt Count Lymph % (Auto) [place] % (Auto) Eos % (Auto) Lymph # (Auto) [place] # (Auto) Eos # (Auto) Seg Neutrophils % Seg Neuts % (Manual) Lymphocytes % (Manual) Monocytes % (Manual) Seg Neutrophils # Seg Neutrophils # Man Lymphocytes # (Manual) Monocytes # (Manual) PT INR ABG pH POC ABG pCO2 POC ABG pO2 ABG pO2 ABG HCO3 ABG O2 Saturation ABG Base Excess ABG Hemoglobin ABG Oxyhemoglobin ABG Sodium ABG Potassium ABG Chloride ABG Glucose Oxyhemoglobin Sodium Potassium Chloride Carbon Dioxide BUN 37 H Creatinine 5.3 H Glucose 109 H POC Glucose 108 H 107 H Lactic Acid Calcium Phosphorus 2.10 L Magnesium 1.50 L Iron TIBC Transferrin Ferritin Total Bilirubin AST ALT Alkaline Phosphatase 143 H Total Protein 6.1 L Albumin 3.0 L Triglycerides Arterial Blood Glucose Arterial Blood Ionized Calcium Digoxin Crossmatch 01/21/21 01/21/21 01/22/21 11:35 17:53 00:20 WBC RBC Hgb Hct MCV MCHC RDW Plt Count Lymph % (Auto) [place] % (Auto) Eos % (Auto) Lymph # (Auto) [place] # (Auto) Eos # (Auto) Seg Neutrophils % Seg Neuts % (Manual) Lymphocytes % (Manual) Monocytes % (Manual) Seg Neutrophils # Seg Neutrophils # Man Lymphocytes # (Manual) Monocytes # (Manual) PT INR ABG pH POC ABG pCO2 POC ABG pO2 ABG pO2 ABG HCO3 ABG O2 Saturation ABG Base Excess ABG Hemoglobin ABG Oxyhemoglobin ABG Sodium ABG Potassium ABG Chloride ABG Glucose Oxyhemoglobin Sodium Potassium Chloride Carbon Dioxide BUN Creatinine Glucose POC Glucose 133 H 124 H 122 H Lactic Acid Calcium Phosphorus Magnesium Iron TIBC Transferrin Ferritin Total Bilirubin AST ALT Alkaline Phosphatase Total Protein Albumin Triglycerides Arterial Blood Glucose Arterial Blood Ionized Calcium Digoxin Crossmatch 01/22/21 01/22/21 01/22/21 04:00 06:09 11:36 WBC RBC Hgb Hct MCV MCHC RDW Plt Count Lymph % (Auto) [place] % (Auto) Eos % (Auto) Lymph # (Auto) [place] # (Auto) Eos # (Auto) Seg Neutrophils % Seg Neuts % (Manual) Lymphocytes % (Manual) Monocytes % (Manual) Seg Neutrophils # Seg Neutrophils # Man Lymphocytes # (Manual) Monocytes # (Manual) PT INR ABG pH POC ABG pCO2 POC ABG pO2 ABG pO2 ABG HCO3 ABG O2 Saturation ABG Base Excess ABG Hemoglobin ABG Oxyhemoglobin ABG Sodium ABG Potassium ABG Chloride ABG Glucose Oxyhemoglobin Sodium Potassium Chloride Carbon Dioxide BUN 65 H Creatinine 8.2 H D Glucose 111 H POC Glucose 122 H 132 H Lactic Acid Calcium Phosphorus Magnesium Iron TIBC Transferrin Ferritin Total Bilirubin AST ALT Alkaline Phosphatase Total Protein Albumin Triglycerides Arterial Blood Glucose Arterial Blood Ionized Calcium Digoxin Crossmatch 01/22/21 01/22/21 01/23/21 17:17 23:18 05:29 WBC RBC Hgb Hct MCV MCHC RDW Plt Count Lymph % (Auto) [place] % (Auto) Eos % (Auto) Lymph # (Auto) [place] # (Auto) Eos # (Auto) Seg Neutrophils % Seg Neuts % (Manual) Lymphocytes % (Manual) Monocytes % (Manual) Seg Neutrophils # Seg Neutrophils # Man Lymphocytes # (Manual) Monocytes # (Manual) PT INR ABG pH POC ABG pCO2 POC ABG pO2 ABG pO2 ABG HCO3 ABG O2 Saturation ABG Base Excess ABG Hemoglobin ABG Oxyhemoglobin ABG Sodium ABG Potassium ABG Chloride ABG Glucose Oxyhemoglobin Sodium Potassium Chloride Carbon Dioxide BUN Creatinine Glucose POC Glucose 135 H 128 H 129 H Lactic Acid Calcium Phosphorus Magnesium Iron TIBC Transferrin Ferritin Total Bilirubin AST ALT Alkaline Phosphatase Total Protein Albumin Triglycerides Arterial Blood Glucose Arterial Blood Ionized Calcium Digoxin Crossmatch 01/23/21 01/23/21 01/23/21 05:45 11:28 16:39 WBC RBC Hgb Hct MCV MCHC RDW Plt Count Lymph % (Auto) [place] % (Auto) Eos % (Auto) Lymph # (Auto) [place] # (Auto) Eos # (Auto) Seg Neutrophils % Seg Neuts % (Manual) Lymphocytes % (Manual) Monocytes % (Manual) Seg Neutrophils # Seg Neutrophils # Man Lymphocytes # (Manual) Monocytes # (Manual) PT INR ABG pH POC ABG pCO2 POC ABG pO2 ABG pO2 ABG HCO3 ABG O2 Saturation ABG Base Excess ABG Hemoglobin ABG Oxyhemoglobin ABG Sodium ABG Potassium ABG Chloride ABG Glucose Oxyhemoglobin Sodium Potassium Chloride Carbon Dioxide BUN 96 H Creatinine 10.8 H Glucose 124 H POC Glucose 160 H 116 H Lactic Acid Calcium Phosphorus Magnesium 2.50 H Iron TIBC Transferrin Ferritin Total Bilirubin AST ALT Alkaline Phosphatase Total Protein Albumin Triglycerides Arterial Blood Glucose Arterial Blood Ionized Calcium Digoxin Crossmatch 01/24/21 01/24/21 01/24/21 00:02 04:45 05:01 WBC RBC Hgb Hct MCV MCHC RDW Plt Count Lymph % (Auto) [place] % (Auto) Eos % (Auto) Lymph # (Auto) [place] # (Auto) Eos # (Auto) Seg Neutrophils % Seg Neuts % (Manual) Lymphocytes % (Manual) Monocytes % (Manual) Seg Neutrophils # Seg Neutrophils # Man Lymphocytes # (Manual) Monocytes # (Manual) PT INR ABG pH POC ABG pCO2 POC ABG pO2 ABG pO2 ABG HCO3 ABG O2 Saturation ABG Base Excess ABG Hemoglobin ABG Oxyhemoglobin ABG Sodium ABG Potassium ABG Chloride ABG Glucose Oxyhemoglobin Sodium Potassium 3.5 L Chloride Carbon Dioxide BUN 56 H Creatinine 7.7 H Glucose 102 H POC Glucose 120 H 108 H Lactic Acid Calcium Phosphorus Magnesium Iron TIBC Transferrin Ferritin Total Bilirubin AST ALT Alkaline Phosphatase Total Protein Albumin Triglycerides Arterial Blood Glucose Arterial Blood Ionized Calcium Digoxin Crossmatch 01/24/21 01/24/21 01/24/21 12:03 17:07 23:55 WBC RBC Hgb Hct MCV MCHC RDW Plt Count Lymph % (Auto) [place] % (Auto) Eos % (Auto) Lymph # (Auto) [place] # (Auto) Eos # (Auto) Seg Neutrophils % Seg Neuts % (Manual) Lymphocytes % (Manual) Monocytes % (Manual) Seg Neutrophils # Seg Neutrophils # Man Lymphocytes # (Manual) Monocytes # (Manual) PT INR ABG pH POC ABG pCO2 POC ABG pO2 ABG pO2 ABG HCO3 ABG O2 Saturation ABG Base Excess ABG Hemoglobin ABG Oxyhemoglobin ABG Sodium ABG Potassium ABG Chloride ABG Glucose Oxyhemoglobin Sodium Potassium Chloride Carbon Dioxide BUN Creatinine Glucose POC Glucose 136 H 122 H 112 H Lactic Acid Calcium Phosphorus Magnesium Iron TIBC Transferrin Ferritin Total Bilirubin AST ALT Alkaline Phosphatase Total Protein Albumin Triglycerides Arterial Blood Glucose Arterial Blood Ionized Calcium Digoxin Crossmatch 01/25/21 01/25/21 01/25/21 05:15 06:00 07:47 WBC RBC Hgb Hct MCV MCHC RDW Plt Count Lymph % (Auto) [place] % (Auto) Eos % (Auto) Lymph # (Auto) [place] # (Auto) Eos # (Auto) Seg Neutrophils % Seg Neuts % (Manual) Lymphocytes % (Manual) Monocytes % (Manual) Seg Neutrophils # Seg Neutrophils # Man Lymphocytes # (Manual) Monocytes # (Manual) PT INR ABG pH POC ABG pCO2 POC ABG pO2 ABG pO2 ABG HCO3 ABG O2 Saturation ABG Base Excess ABG Hemoglobin ABG Oxyhemoglobin ABG Sodium ABG Potassium ABG Chloride ABG Glucose Oxyhemoglobin Sodium 116 L* D Potassium Chloride 79.1 L Carbon Dioxide 17 L D BUN 72 H Creatinine 7.4 H Glucose 2242 H* POC Glucose 117 H 138 H Lactic Acid Calcium 6.7 L D Phosphorus Magnesium Iron TIBC Transferrin Ferritin Total Bilirubin AST ALT Alkaline Phosphatase Total Protein Albumin Triglycerides Arterial Blood Glucose Arterial Blood Ionized Calcium Digoxin Crossmatch 01/25/21 01/25/21 01/25/21 08:35 11:49 18:42 WBC RBC Hgb Hct MCV MCHC RDW Plt Count Lymph % (Auto) [place] % (Auto) Eos % (Auto) Lymph # (Auto) [place] # (Auto) Eos # (Auto) Seg Neutrophils % Seg Neuts % (Manual) Lymphocytes % (Manual) Monocytes % (Manual) Seg Neutrophils # Seg Neutrophils # Man Lymphocytes # (Manual) Monocytes # (Manual) PT INR ABG pH POC ABG pCO2 POC ABG pO2 ABG pO2 ABG HCO3 ABG O2 Saturation ABG Base Excess ABG Hemoglobin ABG Oxyhemoglobin ABG Sodium ABG Potassium ABG Chloride ABG Glucose Oxyhemoglobin Sodium Potassium Chloride 97.0 L Carbon Dioxide BUN 92 H Creatinine 11.0 H Glucose 125 H POC Glucose 130 H 122 H Lactic Acid Calcium Phosphorus Magnesium Iron TIBC Transferrin Ferritin Total Bilirubin AST ALT Alkaline Phosphatase Total Protein Albumin Triglycerides Arterial Blood Glucose Arterial Blood Ionized Calcium Digoxin Crossmatch 01/25/21 01/26/21 01/26/21 23:37 04:19 05:48 WBC RBC Hgb Hct MCV MCHC RDW Plt Count Lymph % (Auto) [place] % (Auto) Eos % (Auto) Lymph # (Auto) [place] # (Auto) Eos # (Auto) Seg Neutrophils % Seg Neuts % (Manual) Lymphocytes % (Manual) Monocytes % (Manual) Seg Neutrophils # Seg Neutrophils # Man Lymphocytes # (Manual) Monocytes # (Manual) PT INR ABG pH POC ABG pCO2 POC ABG pO2 ABG pO2 ABG HCO3 ABG O2 Saturation ABG Base Excess ABG Hemoglobin ABG Oxyhemoglobin ABG Sodium ABG Potassium ABG Chloride ABG Glucose Oxyhemoglobin Sodium Potassium Chloride Carbon Dioxide BUN 49 H Creatinine 7.1 H Glucose POC Glucose 144 H 125 H Lactic Acid Calcium Phosphorus Magnesium 1.50 L Iron TIBC Transferrin Ferritin Total Bilirubin AST ALT Alkaline Phosphatase Total Protein Albumin Triglycerides Arterial Blood Glucose Arterial Blood Ionized Calcium Digoxin Crossmatch 01/26/21 01/26/21 01/27/21 11:16 18:35 00:01 WBC RBC Hgb Hct MCV MCHC RDW Plt Count Lymph % (Auto) [place] % (Auto) Eos % (Auto) Lymph # (Auto) [place] # (Auto) Eos # (Auto) Seg Neutrophils % Seg Neuts % (Manual) Lymphocytes % (Manual) Monocytes % (Manual) Seg Neutrophils # Seg Neutrophils # Man Lymphocytes # (Manual) Monocytes # (Manual) PT INR ABG pH POC ABG pCO2 POC ABG pO2 ABG pO2 ABG HCO3 ABG O2 Saturation ABG Base Excess ABG Hemoglobin ABG Oxyhemoglobin ABG Sodium ABG Potassium ABG Chloride ABG Glucose Oxyhemoglobin Sodium Potassium Chloride Carbon Dioxide BUN Creatinine Glucose POC Glucose 122 H 127 H 130 H Lactic Acid Calcium Phosphorus Magnesium Iron TIBC Transferrin Ferritin Total Bilirubin AST ALT Alkaline Phosphatase Total Protein Albumin Triglycerides Arterial Blood Glucose Arterial Blood Ionized Calcium Digoxin Crossmatch 01/27/21 01/27/21 01/27/21 04:19 04:19 05:25 WBC 12.4 H RBC 2.79 L Hgb 8.6 L Hct 25.1 L MCV MCHC RDW 16.1 H Plt Count Lymph % (Auto) 7.5 L [place] % (Auto) 9.3 H Eos % (Auto) 4.8 H Lymph # (Auto) 0.9 L [place] # (Auto) 1.1 H Eos # (Auto) 0.6 H Seg Neutrophils % 78.0 H Seg Neuts % (Manual) Lymphocytes % (Manual) Monocytes % (Manual) Seg Neutrophils # 9.7 H Seg Neutrophils # Man Lymphocytes # (Manual) Monocytes # (Manual) PT INR ABG pH POC ABG pCO2 POC ABG pO2 ABG pO2 ABG HCO3 ABG O2 Saturation ABG Base Excess ABG Hemoglobin ABG Oxyhemoglobin ABG Sodium ABG Potassium ABG Chloride ABG Glucose Oxyhemoglobin Sodium Potassium Chloride 97.9 L Carbon Dioxide BUN 76 H Creatinine 9.9 H Glucose 111 H POC Glucose 129 H Lactic Acid Calcium Phosphorus Magnesium Iron TIBC Transferrin Ferritin Total Bilirubin AST ALT Alkaline Phosphatase Total Protein Albumin Triglycerides Arterial Blood Glucose Arterial Blood Ionized Calcium Digoxin Crossmatch 01/27/21 01/27/21 01/27/21 11:30 17:08 23:28 WBC RBC Hgb Hct MCV MCHC RDW Plt Count Lymph % (Auto) [place] % (Auto) Eos % (Auto) Lymph # (Auto) [place] # (Auto) Eos # (Auto) Seg Neutrophils % Seg Neuts % (Manual) Lymphocytes % (Manual) Monocytes % (Manual) Seg Neutrophils # Seg Neutrophils # Man Lymphocytes # (Manual) Monocytes # (Manual) PT INR ABG pH POC ABG pCO2 POC ABG pO2 ABG pO2 ABG HCO3 ABG O2 Saturation ABG Base Excess ABG Hemoglobin ABG Oxyhemoglobin ABG Sodium ABG Potassium ABG Chloride ABG Glucose Oxyhemoglobin Sodium Potassium Chloride Carbon Dioxide BUN Creatinine Glucose POC Glucose 128 H 158 H 114 H Lactic Acid Calcium Phosphorus Magnesium Iron TIBC Transferrin Ferritin Total Bilirubin AST ALT Alkaline Phosphatase Total Protein Albumin Triglycerides Arterial Blood Glucose Arterial Blood Ionized Calcium Digoxin Crossmatch 01/28/21 01/28/21 01/28/21 05:17 11:27 18:01 WBC RBC Hgb Hct MCV MCHC RDW Plt Count Lymph % (Auto) [place] % (Auto) Eos % (Auto) Lymph # (Auto) [place] # (Auto) Eos # (Auto) Seg Neutrophils % Seg Neuts % (Manual) Lymphocytes % (Manual) Monocytes % (Manual) Seg Neutrophils # Seg Neutrophils # Man Lymphocytes # (Manual) Monocytes # (Manual) PT INR ABG pH POC ABG pCO2 POC ABG pO2 ABG pO2 ABG HCO3 ABG O2 Saturation ABG Base Excess ABG Hemoglobin ABG Oxyhemoglobin ABG Sodium ABG Potassium ABG Chloride ABG Glucose Oxyhemoglobin Sodium Potassium Chloride Carbon Dioxide BUN Creatinine Glucose POC Glucose 113 H 134 H 111 H Lactic Acid Calcium Phosphorus Magnesium Iron TIBC Transferrin Ferritin Total Bilirubin AST ALT Alkaline Phosphatase Total Protein Albumin Triglycerides Arterial Blood Glucose Arterial Blood Ionized Calcium Digoxin Crossmatch 01/29/21 01/29/21 01/29/21 04:54 06:45 11:10 WBC RBC Hgb Hct MCV MCHC RDW Plt Count Lymph % (Auto) [place] % (Auto) Eos % (Auto) Lymph # (Auto) [place] # (Auto) Eos # (Auto) Seg Neutrophils % Seg Neuts % (Manual) Lymphocytes % (Manual) Monocytes % (Manual) Seg Neutrophils # Seg Neutrophils # Man Lymphocytes # (Manual) Monocytes # (Manual) PT INR ABG pH POC ABG pCO2 POC ABG pO2 ABG pO2 ABG HCO3 ABG O2 Saturation ABG Base Excess ABG Hemoglobin ABG Oxyhemoglobin ABG Sodium ABG Potassium ABG Chloride ABG Glucose Oxyhemoglobin Sodium Potassium 3.4 L Chloride Carbon Dioxide BUN 51 H Creatinine 6.9 H Glucose 120 H POC Glucose 111 H 106 H Lactic Acid Calcium Phosphorus 2.10 L Magnesium Iron TIBC Transferrin Ferritin Total Bilirubin AST ALT Alkaline Phosphatase 182 H Total Protein 6.0 L Albumin 2.9 L Triglycerides Arterial Blood Glucose Arterial Blood Ionized Calcium Digoxin Crossmatch 01/29/21 01/30/21 01/30/21 16:47 04:15 06:55 WBC RBC Hgb Hct MCV MCHC RDW Plt Count Lymph % (Auto) [place] % (Auto) Eos % (Auto) Lymph # (Auto) [place] # (Auto) Eos # (Auto) Seg Neutrophils % Seg Neuts % (Manual) Lymphocytes % (Manual) Monocytes % (Manual) Seg Neutrophils # Seg Neutrophils # Man Lymphocytes # (Manual) Monocytes # (Manual) PT INR ABG pH POC ABG pCO2 POC ABG pO2 ABG pO2 ABG HCO3 ABG O2 Saturation ABG Base Excess ABG Hemoglobin ABG Oxyhemoglobin ABG Sodium ABG Potassium ABG Chloride ABG Glucose Oxyhemoglobin Sodium Potassium Chloride Carbon Dioxide BUN 73 H Creatinine 9.2 H Glucose 119 H POC Glucose 110 H 126 H Lactic Acid Calcium Phosphorus 4.70 H D Magnesium Iron TIBC Transferrin Ferritin Total Bilirubin AST ALT Alkaline Phosphatase Total Protein Albumin Triglycerides Arterial Blood Glucose Arterial Blood Ionized Calcium Digoxin Crossmatch 01/30/21 01/31/21 01/31/21 18:25 00:51 07:15 WBC RBC Hgb Hct MCV MCHC RDW Plt Count Lymph % (Auto) [place] % (Auto) Eos % (Auto) Lymph # (Auto) [place] # (Auto) Eos # (Auto) Seg Neutrophils % Seg Neuts % (Manual) Lymphocytes % (Manual) Monocytes % (Manual) Seg Neutrophils # Seg Neutrophils # Man Lymphocytes # (Manual) Monocytes # (Manual) PT INR ABG pH POC ABG pCO2 POC ABG pO2 ABG pO2 ABG HCO3 ABG O2 Saturation ABG Base Excess ABG Hemoglobin ABG Oxyhemoglobin ABG Sodium ABG Potassium ABG Chloride ABG Glucose Oxyhemoglobin Sodium Potassium Chloride Carbon Dioxide BUN Creatinine Glucose POC Glucose 117 H 134 H 134 H Lactic Acid Calcium Phosphorus Magnesium Iron TIBC Transferrin Ferritin Total Bilirubin AST ALT Alkaline Phosphatase Total Protein Albumin Triglycerides Arterial Blood Glucose Arterial Blood Ionized Calcium Digoxin Crossmatch 01/31/21 01/31/21 02/01/21 11:45 23:15 05:51 WBC RBC Hgb Hct MCV MCHC RDW Plt Count Lymph % (Auto) [place] % (Auto) Eos % (Auto) Lymph # (Auto) [place] # (Auto) Eos # (Auto) Seg Neutrophils % Seg Neuts % (Manual) Lymphocytes % (Manual) Monocytes % (Manual) Seg Neutrophils # Seg Neutrophils # Man Lymphocytes # (Manual) Monocytes # (Manual) PT INR ABG pH POC ABG pCO2 POC ABG pO2 ABG pO2 ABG HCO3 ABG O2 Saturation ABG Base Excess ABG Hemoglobin ABG Oxyhemoglobin ABG Sodium ABG Potassium ABG Chloride ABG Glucose Oxyhemoglobin Sodium Potassium Chloride Carbon Dioxide BUN Creatinine Glucose POC Glucose 119 H 120 H 125 H Lactic Acid Calcium Phosphorus Magnesium Iron TIBC Transferrin Ferritin Total Bilirubin AST ALT Alkaline Phosphatase Total Protein Albumin Triglycerides Arterial Blood Glucose Arterial Blood Ionized Calcium Digoxin Crossmatch 02/01/21 02/02/21 02/02/21 22:05 03:25 06:16 WBC RBC Hgb Hct MCV MCHC RDW Plt Count Lymph % (Auto) [place] % (Auto) Eos % (Auto) Lymph # (Auto) [place] # (Auto) Eos # (Auto) Seg Neutrophils % Seg Neuts % (Manual) Lymphocytes % (Manual) Monocytes % (Manual) Seg Neutrophils # Seg Neutrophils # Man Lymphocytes # (Manual) Monocytes # (Manual) PT INR ABG pH POC ABG pCO2 POC ABG pO2 ABG pO2 ABG HCO3 ABG O2 Saturation ABG Base Excess ABG Hemoglobin ABG Oxyhemoglobin ABG Sodium ABG Potassium ABG Chloride ABG Glucose Oxyhemoglobin Sodium Potassium 3.3 L Chloride Carbon Dioxide BUN 38 H Creatinine 5.8 H Glucose 115 H POC Glucose 118 H 130 H Lactic Acid Calcium Phosphorus 1.80 L Magnesium 1.60 L Iron TIBC Transferrin Ferritin Total Bilirubin AST ALT Alkaline Phosphatase Total Protein Albumin Triglycerides Arterial Blood Glucose Arterial Blood Ionized Calcium Digoxin Crossmatch 02/02/21 02/02/21 02/03/21 17:29 21:53 04:50 WBC RBC Hgb Hct MCV MCHC RDW Plt Count Lymph % (Auto) [place] % (Auto) Eos % (Auto) Lymph # (Auto) [place] # (Auto) Eos # (Auto) Seg Neutrophils % Seg Neuts % (Manual) Lymphocytes % (Manual) Monocytes % (Manual) Seg Neutrophils # Seg Neutrophils # Man Lymphocytes # (Manual) Monocytes # (Manual) PT INR ABG pH POC ABG pCO2 POC ABG pO2 ABG pO2 ABG HCO3 ABG O2 Saturation ABG Base Excess ABG Hemoglobin ABG Oxyhemoglobin ABG Sodium ABG Potassium ABG Chloride ABG Glucose Oxyhemoglobin Sodium Potassium Chloride Carbon Dioxide BUN Creatinine Glucose POC Glucose 115 H 120 H Lactic Acid Calcium Phosphorus Magnesium 1.60 L Iron TIBC Transferrin Ferritin Total Bilirubin AST ALT Alkaline Phosphatase Total Protein Albumin Triglycerides Arterial Blood Glucose Arterial Blood Ionized Calcium Digoxin Crossmatch 02/03/21 02/03/21 02/03/21 06:12 18:25 23:47 WBC RBC Hgb Hct MCV MCHC RDW Plt Count Lymph % (Auto) [place] % (Auto) Eos % (Auto) Lymph # (Auto) [place] # (Auto) Eos # (Auto) Seg Neutrophils % Seg Neuts % (Manual) Lymphocytes % (Manual) Monocytes % (Manual) Seg Neutrophils # Seg Neutrophils # Man Lymphocytes # (Manual) Monocytes # (Manual) PT INR ABG pH POC ABG pCO2 POC ABG pO2 ABG pO2 ABG HCO3 ABG O2 Saturation ABG Base Excess ABG Hemoglobin ABG Oxyhemoglobin ABG Sodium ABG Potassium ABG Chloride ABG Glucose Oxyhemoglobin Sodium Potassium Chloride Carbon Dioxide BUN Creatinine Glucose POC Glucose 112 H 112 H 131 H Lactic Acid Calcium Phosphorus Magnesium Iron TIBC Transferrin Ferritin Total Bilirubin AST ALT Alkaline Phosphatase Total Protein Albumin Triglycerides Arterial Blood Glucose Arterial Blood Ionized Calcium Digoxin Crossmatch 02/04/21 02/04/21 02/04/21 05:40 09:37 12:03 WBC RBC Hgb Hct MCV MCHC RDW Plt Count Lymph % (Auto) [place] % (Auto) Eos % (Auto) Lymph # (Auto) [place] # (Auto) Eos # (Auto) Seg Neutrophils % Seg Neuts % (Manual) Lymphocytes % (Manual) Monocytes % (Manual) Seg Neutrophils # Seg Neutrophils # Man Lymphocytes # (Manual) Monocytes # (Manual) PT INR ABG pH POC ABG pCO2 POC ABG pO2 ABG pO2 ABG HCO3 ABG O2 Saturation ABG Base Excess ABG Hemoglobin ABG Oxyhemoglobin ABG Sodium ABG Potassium ABG Chloride ABG Glucose Oxyhemoglobin Sodium 131 L D 135 L Potassium 3.0 L 3.1 L Chloride 93.4 L 96.7 L Carbon Dioxide BUN 46 H 52 H Creatinine 6.5 H 7.3 H Glucose 363 H 128 H POC Glucose 129 H Lactic Acid Calcium Phosphorus 2.40 L Magnesium 1.50 L 1.60 L Iron TIBC Transferrin Ferritin Total Bilirubin AST ALT Alkaline Phosphatase Total Protein Albumin Triglycerides Arterial Blood Glucose Arterial Blood Ionized Calcium Digoxin Crossmatch 02/04/21 02/04/21 02/05/21 17:25 21:38 05:19 WBC RBC Hgb Hct MCV MCHC RDW Plt Count Lymph % (Auto) [place] % (Auto) Eos % (Auto) Lymph # (Auto) [place] # (Auto) Eos # (Auto) Seg Neutrophils % Seg Neuts % (Manual) Lymphocytes % (Manual) Monocytes % (Manual) Seg Neutrophils # Seg Neutrophils # Man Lymphocytes # (Manual) Monocytes # (Manual) PT INR ABG pH POC ABG pCO2 POC ABG pO2 ABG pO2 ABG HCO3 ABG O2 Saturation ABG Base Excess ABG Hemoglobin ABG Oxyhemoglobin ABG Sodium ABG Potassium ABG Chloride ABG Glucose Oxyhemoglobin Sodium Potassium Chloride Carbon Dioxide BUN Creatinine Glucose POC Glucose 132 H 108 H 116 H Lactic Acid Calcium Phosphorus Magnesium Iron TIBC Transferrin Ferritin Total Bilirubin AST ALT Alkaline Phosphatase Total Protein Albumin Triglycerides Arterial Blood Glucose Arterial Blood Ionized Calcium Digoxin Crossmatch 02/05/21 02/05/21 02/05/21 06:30 11:25 16:20 WBC RBC Hgb Hct MCV MCHC RDW Plt Count Lymph % (Auto) [place] % (Auto) Eos % (Auto) Lymph # (Auto) [place] # (Auto) Eos # (Auto) Seg Neutrophils % Seg Neuts % (Manual) Lymphocytes % (Manual) Monocytes % (Manual) Seg Neutrophils # Seg Neutrophils # Man Lymphocytes # (Manual) Monocytes # (Manual) PT INR ABG pH POC ABG pCO2 POC ABG pO2 ABG pO2 ABG HCO3 ABG O2 Saturation ABG Base Excess ABG Hemoglobin ABG Oxyhemoglobin ABG Sodium ABG Potassium ABG Chloride ABG Glucose Oxyhemoglobin Sodium Potassium 3.2 L Chloride 96.5 L Carbon Dioxide BUN 76 H Creatinine 9.6 H Glucose 112 H POC Glucose 118 H 123 H Lactic Acid Calcium Phosphorus Magnesium 1.50 L Iron TIBC Transferrin Ferritin Total Bilirubin AST ALT Alkaline Phosphatase 177 H Total Protein 6.0 L Albumin 2.9 L Triglycerides Arterial Blood Glucose Arterial Blood Ionized Calcium Digoxin Crossmatch 02/06/21 02/06/21 02/06/21 05:42 06:42 08:18 WBC RBC Hgb Hct MCV MCHC RDW Plt Count Lymph % (Auto) [place] % (Auto) Eos % (Auto) Lymph # (Auto) [place] # (Auto) Eos # (Auto) Seg Neutrophils % Seg Neuts % (Manual) Lymphocytes % (Manual) Monocytes % (Manual) Seg Neutrophils # Seg Neutrophils # Man Lymphocytes # (Manual) Monocytes # (Manual) PT INR ABG pH POC ABG pCO2 POC ABG pO2 ABG pO2 ABG HCO3 ABG O2 Saturation ABG Base Excess ABG Hemoglobin ABG Oxyhemoglobin ABG Sodium ABG Potassium ABG Chloride ABG Glucose Oxyhemoglobin Sodium 133 L Potassium Chloride 92.7 L Carbon Dioxide 19 L BUN 100 H Creatinine 11.9 H Glucose 114 H POC Glucose 118 H 114 H Lactic Acid Calcium Phosphorus 4.70 H Magnesium 1.60 L Iron TIBC Transferrin Ferritin Total Bilirubin AST ALT Alkaline Phosphatase Total Protein Albumin Triglycerides Arterial Blood Glucose Arterial Blood Ionized Calcium Digoxin Crossmatch 02/06/21 02/07/21 02/07/21 23:22 04:35 04:35 WBC RBC 2.52 L Hgb 8.0 L Hct 22.5 L MCV MCHC 36 H RDW 16.7 H Plt Count Lymph % (Auto) 12.7 L [place] % (Auto) 10.2 H Eos % (Auto) 5.0 H Lymph # (Auto) [place] # (Auto) 1.0 H Eos # (Auto) 0.5 H Seg Neutrophils % 71.6 H Seg Neuts % (Manual) Lymphocytes % (Manual) Monocytes % (Manual) Seg Neutrophils # Seg Neutrophils # Man Lymphocytes # (Manual) Monocytes # (Manual) PT INR ABG pH POC ABG pCO2 POC ABG pO2 ABG pO2 ABG HCO3 ABG O2 Saturation ABG Base Excess ABG Hemoglobin ABG Oxyhemoglobin ABG Sodium ABG Potassium ABG Chloride ABG Glucose Oxyhemoglobin Sodium 135 L Potassium 3.4 L Chloride 95.5 L Carbon Dioxide BUN 59 H Creatinine 8.5 H Glucose POC Glucose 117 H Lactic Acid Calcium Phosphorus Magnesium Iron TIBC Transferrin Ferritin Total Bilirubin AST ALT Alkaline Phosphatase Total Protein Albumin Triglycerides Arterial Blood Glucose Arterial Blood Ionized Calcium Digoxin Crossmatch 02/07/21 02/07/21 02/07/21 04:35 11:31 22:49 WBC RBC Hgb Hct MCV MCHC RDW Plt Count Lymph % (Auto) [place] % (Auto) Eos % (Auto) Lymph # (Auto) [place] # (Auto) Eos # (Auto) Seg Neutrophils % Seg Neuts % (Manual) Lymphocytes % (Manual) Monocytes % (Manual) Seg Neutrophils # Seg Neutrophils # Man Lymphocytes # (Manual) Monocytes # (Manual) PT INR ABG pH POC ABG pCO2 POC ABG pO2 ABG pO2 ABG HCO3 ABG O2 Saturation ABG Base Excess ABG Hemoglobin ABG Oxyhemoglobin ABG Sodium ABG Potassium ABG Chloride ABG Glucose Oxyhemoglobin Sodium Potassium Chloride Carbon Dioxide BUN Creatinine Glucose POC Glucose 117 H 122 H Lactic Acid Calcium Phosphorus Magnesium 1.60 L Iron TIBC Transferrin Ferritin Total Bilirubin AST ALT Alkaline Phosphatase Total Protein Albumin Triglycerides Arterial Blood Glucose Arterial Blood Ionized Calcium Digoxin Crossmatch 02/08/21 02/08/21 02/08/21 04:56 06:45 22:38 WBC RBC Hgb Hct MCV MCHC RDW Plt Count Lymph % (Auto) [place] % (Auto) Eos % (Auto) Lymph # (Auto) [place] # (Auto) Eos # (Auto) Seg Neutrophils % Seg Neuts % (Manual) Lymphocytes % (Manual) Monocytes % (Manual) Seg Neutrophils # Seg Neutrophils # Man Lymphocytes # (Manual) Monocytes # (Manual) PT INR ABG pH POC ABG pCO2 POC ABG pO2 ABG pO2 ABG HCO3 ABG O2 Saturation ABG Base Excess ABG Hemoglobin ABG Oxyhemoglobin ABG Sodium ABG Potassium ABG Chloride ABG Glucose Oxyhemoglobin Sodium 134 L Potassium 3.5 L Chloride 94.2 L Carbon Dioxide BUN 78 H Creatinine 11.4 H Glucose 101 H POC Glucose 113 H 128 H Lactic Acid Calcium Phosphorus Magnesium Iron TIBC Transferrin Ferritin Total Bilirubin AST ALT Alkaline Phosphatase Total Protein Albumin Triglycerides Arterial Blood Glucose Arterial Blood Ionized Calcium Digoxin Crossmatch 02/09/21 02/09/21 02/09/21 04:43 07:44 11:33 WBC RBC Hgb Hct MCV MCHC RDW Plt Count Lymph % (Auto) [place] % (Auto) Eos % (Auto) Lymph # (Auto) [place] # (Auto) Eos # (Auto) Seg Neutrophils % Seg Neuts % (Manual) Lymphocytes % (Manual) Monocytes % (Manual) Seg Neutrophils # Seg Neutrophils # Man Lymphocytes # (Manual) Monocytes # (Manual) PT INR ABG pH POC ABG pCO2 POC ABG pO2 ABG pO2 ABG HCO3 ABG O2 Saturation ABG Base Excess ABG Hemoglobin ABG Oxyhemoglobin ABG Sodium ABG Potassium ABG Chloride ABG Glucose Oxyhemoglobin Sodium 135 L Potassium 3.2 L Chloride 93.0 L Carbon Dioxide BUN 42 H Creatinine 8.1 H Glucose 128 H POC Glucose 115 H 127 H Lactic Acid Calcium Phosphorus 2.20 L D Magnesium Iron TIBC Transferrin Ferritin Total Bilirubin AST ALT Alkaline Phosphatase Total Protein Albumin Triglycerides Arterial Blood Glucose Arterial Blood Ionized Calcium Digoxin Crossmatch 02/09/21 02/09/21 02/10/21 17:31 22:15 06:00 WBC RBC Hgb Hct MCV MCHC RDW Plt Count Lymph % (Auto) [place] % (Auto) Eos % (Auto) Lymph # (Auto) [place] # (Auto) Eos # (Auto) Seg Neutrophils % Seg Neuts % (Manual) Lymphocytes % (Manual) Monocytes % (Manual) Seg Neutrophils # Seg Neutrophils # Man Lymphocytes # (Manual) Monocytes # (Manual) PT INR ABG pH POC ABG pCO2 POC ABG pO2 ABG pO2 ABG HCO3 ABG O2 Saturation ABG Base Excess ABG Hemoglobin ABG Oxyhemoglobin ABG Sodium ABG Potassium ABG Chloride ABG Glucose Oxyhemoglobin Sodium Potassium Chloride 95.4 L Carbon Dioxide BUN 65 H Creatinine 10.2 H Glucose 114 H POC Glucose 114 H 117 H Lactic Acid Calcium Phosphorus 2.20 L Magnesium 2.80 H Iron TIBC Transferrin Ferritin Total Bilirubin AST ALT Alkaline Phosphatase Total Protein Albumin Triglycerides Arterial Blood Glucose Arterial Blood Ionized Calcium Digoxin Crossmatch 02/10/21 02/10/21 02/10/21 06:21 11:45 22:48 WBC RBC Hgb Hct MCV MCHC RDW Plt Count Lymph % (Auto) [place] % (Auto) Eos % (Auto) Lymph # (Auto) [place] # (Auto) Eos # (Auto) Seg Neutrophils % Seg Neuts % (Manual) Lymphocytes % (Manual) Monocytes % (Manual) Seg Neutrophils # Seg Neutrophils # Man Lymphocytes # (Manual) Monocytes # (Manual) PT INR ABG pH POC ABG pCO2 POC ABG pO2 ABG pO2 ABG HCO3 ABG O2 Saturation ABG Base Excess ABG Hemoglobin ABG Oxyhemoglobin ABG Sodium ABG Potassium ABG Chloride ABG Glucose Oxyhemoglobin Sodium 135 L Potassium 3.1 L Chloride 96.3 L Carbon Dioxide BUN 29 H Creatinine 6.2 H Glucose 115 H POC Glucose 111 H 129 H Lactic Acid Calcium 8.0 L Phosphorus Magnesium Iron TIBC Transferrin Ferritin Total Bilirubin AST ALT Alkaline Phosphatase Total Protein Albumin Triglycerides Arterial Blood Glucose Arterial Blood Ionized Calcium Digoxin Crossmatch 02/10/21 02/11/21 02/11/21 23:58 04:20 06:23 WBC RBC Hgb Hct MCV MCHC RDW Plt Count Lymph % (Auto) [place] % (Auto) Eos % (Auto) Lymph # (Auto) [place] # (Auto) Eos # (Auto) Seg Neutrophils % Seg Neuts % (Manual) Lymphocytes % (Manual) Monocytes % (Manual) Seg Neutrophils # Seg Neutrophils # Man Lymphocytes # (Manual) Monocytes # (Manual) PT INR ABG pH POC ABG pCO2 POC ABG pO2 ABG pO2 ABG HCO3 ABG O2 Saturation ABG Base Excess ABG Hemoglobin ABG Oxyhemoglobin ABG Sodium ABG Potassium ABG Chloride ABG Glucose Oxyhemoglobin Sodium 136 L Potassium 3.3 L Chloride 97.4 L Carbon Dioxide BUN 34 H Creatinine 6.9 H Glucose 116 H POC Glucose 125 H 120 H Lactic Acid Calcium Phosphorus 2.00 L Magnesium Iron TIBC Transferrin Ferritin Total Bilirubin AST ALT Alkaline Phosphatase Total Protein Albumin Triglycerides Arterial Blood Glucose Arterial Blood Ionized Calcium Digoxin Crossmatch 02/11/21 02/11/21 02/11/21 11:25 17:31 23:23 WBC RBC Hgb Hct MCV MCHC RDW Plt Count Lymph % (Auto) [place] % (Auto) Eos % (Auto) Lymph # (Auto) [place] # (Auto) Eos # (Auto) Seg Neutrophils % Seg Neuts % (Manual) Lymphocytes % (Manual) Monocytes % (Manual) Seg Neutrophils # Seg Neutrophils # Man Lymphocytes # (Manual) Monocytes # (Manual) PT INR ABG pH POC ABG pCO2 POC ABG pO2 ABG pO2 ABG HCO3 ABG O2 Saturation ABG Base Excess ABG Hemoglobin ABG Oxyhemoglobin ABG Sodium ABG Potassium ABG Chloride ABG Glucose Oxyhemoglobin Sodium Potassium Chloride Carbon Dioxide BUN Creatinine Glucose POC Glucose 125 H 115 H 119 H Lactic Acid Calcium Phosphorus Magnesium Iron TIBC Transferrin Ferritin Total Bilirubin AST ALT Alkaline Phosphatase Total Protein Albumin Triglycerides Arterial Blood Glucose Arterial Blood Ionized Calcium Digoxin Crossmatch 02/12/21 02/12/21 02/12/21 11:30 11:47 17:09 WBC RBC Hgb Hct MCV MCHC RDW Plt Count Lymph % (Auto) [place] % (Auto) Eos % (Auto) Lymph # (Auto) [place] # (Auto) Eos # (Auto) Seg Neutrophils % Seg Neuts % (Manual) Lymphocytes % (Manual) Monocytes % (Manual) Seg Neutrophils # Seg Neutrophils # Man Lymphocytes # (Manual) Monocytes # (Manual) PT INR ABG pH POC ABG pCO2 POC ABG pO2 ABG pO2 ABG HCO3 ABG O2 Saturation ABG Base Excess ABG Hemoglobin ABG Oxyhemoglobin ABG Sodium ABG Potassium ABG Chloride ABG Glucose Oxyhemoglobin Sodium 135 L Potassium Chloride 97.0 L Carbon Dioxide BUN 63 H Creatinine 9.8 H Glucose 113 H POC Glucose 117 H 116 H Lactic Acid Calcium Phosphorus Magnesium Iron TIBC Transferrin Ferritin Total Bilirubin AST ALT Alkaline Phosphatase Total Protein Albumin Triglycerides Arterial Blood Glucose Arterial Blood Ionized Calcium Digoxin Crossmatch 02/13/21 02/13/21 02/13/21 00:27 06:05 22:06 WBC RBC Hgb Hct MCV MCHC RDW Plt Count Lymph % (Auto) [place] % (Auto) Eos % (Auto) Lymph # (Auto) [place] # (Auto) Eos # (Auto) Seg Neutrophils % Seg Neuts % (Manual) Lymphocytes % (Manual) Monocytes % (Manual) Seg Neutrophils # Seg Neutrophils # Man Lymphocytes # (Manual) Monocytes # (Manual) PT INR ABG pH POC ABG pCO2 POC ABG pO2 ABG pO2 ABG HCO3 ABG O2 Saturation ABG Base Excess ABG Hemoglobin ABG Oxyhemoglobin ABG Sodium ABG Potassium ABG Chloride ABG Glucose Oxyhemoglobin Sodium Potassium Chloride Carbon Dioxide 20 L BUN 80 H Creatinine 11.5 H Glucose 111 H POC Glucose 110 H 115 H Lactic Acid Calcium Phosphorus 5.00 H D Magnesium Iron TIBC Transferrin Ferritin Total Bilirubin AST ALT Alkaline Phosphatase 149 H Total Protein 5.9 L Albumin 3.2 L Triglycerides Arterial Blood Glucose Arterial Blood Ionized Calcium Digoxin Crossmatch 02/14/21 02/14/21 02/14/21 06:09 09:24 09:24 WBC 18.2 H RBC 2.44 L Hgb 7.4 L Hct 22.5 L MCV MCHC RDW 18.1 H Plt Count Lymph % (Auto) [place] % (Auto) Eos % (Auto) Lymph # (Auto) [place] # (Auto) Eos # (Auto) Seg Neutrophils % Seg Neuts % (Manual) 91.0 H Lymphocytes % (Manual) 6.0 L Monocytes % (Manual) Seg Neutrophils # Seg Neutrophils # Man 16.6 H Lymphocytes # (Manual) 1.1 L Monocytes # (Manual) PT INR ABG pH POC ABG pCO2 POC ABG pO2 ABG pO2 ABG HCO3 ABG O2 Saturation ABG Base Excess ABG Hemoglobin ABG Oxyhemoglobin ABG Sodium ABG Potassium ABG Chloride ABG Glucose Oxyhemoglobin Sodium 136 L Potassium Chloride Carbon Dioxide BUN 46 H Creatinine 8.1 H Glucose 126 H POC Glucose 124 H Lactic Acid Calcium Phosphorus 1.40 L D Magnesium 1.30 L Iron TIBC Transferrin Ferritin Total Bilirubin AST ALT Alkaline Phosphatase Total Protein Albumin Triglycerides Arterial Blood Glucose Arterial Blood Ionized Calcium Digoxin Crossmatch 02/14/21 02/14/21 02/14/21 11:44 19:11 22:24 WBC RBC Hgb Hct MCV MCHC RDW Plt Count Lymph % (Auto) [place] % (Auto) Eos % (Auto) Lymph # (Auto) [place] # (Auto) Eos # (Auto) Seg Neutrophils % Seg Neuts % (Manual) Lymphocytes % (Manual) Monocytes % (Manual) Seg Neutrophils # Seg Neutrophils # Man Lymphocytes # (Manual) Monocytes # (Manual) PT INR ABG pH POC ABG pCO2 POC ABG pO2 ABG pO2 ABG HCO3 ABG O2 Saturation ABG Base Excess ABG Hemoglobin ABG Oxyhemoglobin ABG Sodium ABG Potassium ABG Chloride ABG Glucose Oxyhemoglobin Sodium Potassium Chloride Carbon Dioxide BUN Creatinine Glucose POC Glucose 120 H 121 H 119 H Lactic Acid Calcium Phosphorus Magnesium Iron TIBC Transferrin Ferritin Total Bilirubin AST ALT Alkaline Phosphatase Total Protein Albumin Triglycerides Arterial Blood Glucose Arterial Blood Ionized Calcium Digoxin Crossmatch 02/15/21 02/15/21 02/16/21 04:28 05:31 05:16 WBC RBC Hgb Hct MCV MCHC RDW Plt Count Lymph % (Auto) [place] % (Auto) Eos % (Auto) Lymph # (Auto) [place] # (Auto) Eos # (Auto) Seg Neutrophils % Seg Neuts % (Manual) Lymphocytes % (Manual) Monocytes % (Manual) Seg Neutrophils # Seg Neutrophils # Man Lymphocytes # (Manual) Monocytes # (Manual) PT INR ABG pH POC ABG pCO2 POC ABG pO2 ABG pO2 ABG HCO3 ABG O2 Saturation ABG Base Excess ABG Hemoglobin ABG Oxyhemoglobin ABG Sodium ABG Potassium ABG Chloride ABG Glucose Oxyhemoglobin Sodium 133 L Potassium Chloride 96.5 L Carbon Dioxide BUN 66 H Creatinine 9.7 H Glucose 117 H POC Glucose 133 H 140 H Lactic Acid Calcium Phosphorus Magnesium 1.50 L Iron TIBC Transferrin Ferritin Total Bilirubin AST ALT Alkaline Phosphatase Total Protein Albumin Triglycerides Arterial Blood Glucose Arterial Blood Ionized Calcium Digoxin Crossmatch 02/16/21 02/16/21 02/16/21 05:24 05:24 15:23 WBC RBC 2.27 L Hgb 7.1 L Hct 20.7 L MCV MCHC RDW 17.8 H Plt Count Lymph % (Auto) [place] % (Auto) Eos % (Auto) Lymph # (Auto) [place] # (Auto) Eos # (Auto) Seg Neutrophils % Seg Neuts % (Manual) Lymphocytes % (Manual) Monocytes % (Manual) Seg Neutrophils # Seg Neutrophils # Man Lymphocytes # (Manual) Monocytes # (Manual) PT INR ABG pH POC ABG pCO2 POC ABG pO2 ABG pO2 ABG HCO3 ABG O2 Saturation ABG Base Excess ABG Hemoglobin ABG Oxyhemoglobin ABG Sodium ABG Potassium ABG Chloride ABG Glucose Oxyhemoglobin Sodium 135 L Potassium Chloride Carbon Dioxide BUN 36 H Creatinine 6.4 H Glucose 128 H POC Glucose Lactic Acid Calcium 8.3 L Phosphorus Magnesium 1.60 L Iron 39 L TIBC 154 L Transferrin 134 L Ferritin Total Bilirubin AST ALT Alkaline Phosphatase Total Protein Albumin Triglycerides Arterial Blood Glucose Arterial Blood Ionized Calcium Digoxin Crossmatch 02/16/21 02/17/21 02/18/21 15:23 11:28 07:39 WBC RBC Hgb Hct MCV MCHC RDW Plt Count Lymph % (Auto) [place] % (Auto) Eos % (Auto) Lymph # (Auto) [place] # (Auto) Eos # (Auto) Seg Neutrophils % Seg Neuts % (Manual) Lymphocytes % (Manual) Monocytes % (Manual) Seg Neutrophils # Seg Neutrophils # Man Lymphocytes # (Manual) Monocytes # (Manual) PT INR ABG pH POC ABG pCO2 POC ABG pO2 ABG pO2 ABG HCO3 ABG O2 Saturation ABG Base Excess ABG Hemoglobin ABG Oxyhemoglobin ABG Sodium ABG Potassium ABG Chloride ABG Glucose Oxyhemoglobin Sodium 130 L Potassium Chloride 94.0 L Carbon Dioxide BUN 30 H Creatinine 7.8 H Glucose 103 H POC Glucose 109 H Lactic Acid Calcium Phosphorus 2.40 L Magnesium 1.40 L Iron TIBC Transferrin Ferritin 4086.0 H Total Bilirubin AST ALT Alkaline Phosphatase Total Protein Albumin Triglycerides Arterial Blood Glucose Arterial Blood Ionized Calcium Digoxin Crossmatch 02/18/21 02/18/21 02/19/21 07:39 19:03 06:38 WBC RBC 2.38 L Hgb 7.4 L Hct 21.7 L MCV MCHC RDW 16.9 H Plt Count Lymph % (Auto) 9.8 L [place] % (Auto) 12.2 H Eos % (Auto) Lymph # (Auto) 0.7 L [place] # (Auto) Eos # (Auto) Seg Neutrophils % 74.3 H Seg Neuts % (Manual) Lymphocytes % (Manual) Monocytes % (Manual) Seg Neutrophils # Seg Neutrophils # Man Lymphocytes # (Manual) Monocytes # (Manual) PT INR ABG pH POC ABG pCO2 POC ABG pO2 ABG pO2 ABG HCO3 ABG O2 Saturation ABG Base Excess ABG Hemoglobin ABG Oxyhemoglobin ABG Sodium ABG Potassium ABG Chloride ABG Glucose Oxyhemoglobin Sodium Potassium Chloride Carbon Dioxide BUN Creatinine Glucose POC Glucose 107 H 106 H Lactic Acid Calcium Phosphorus Magnesium Iron TIBC Transferrin Ferritin Total Bilirubin AST ALT Alkaline Phosphatase Total Protein Albumin Triglycerides Arterial Blood Glucose Arterial Blood Ionized Calcium Digoxin Crossmatch 02/19/21 02/19/21 02/19/21 09:14 11:56 22:14 WBC RBC Hgb Hct MCV MCHC RDW Plt Count Lymph % (Auto) [place] % (Auto) Eos % (Auto) Lymph # (Auto) [place] # (Auto) Eos # (Auto) Seg Neutrophils % Seg Neuts % (Manual) Lymphocytes % (Manual) Monocytes % (Manual) Seg Neutrophils # Seg Neutrophils # Man Lymphocytes # (Manual) Monocytes # (Manual) PT INR ABG pH POC ABG pCO2 POC ABG pO2 ABG pO2 ABG HCO3 ABG O2 Saturation ABG Base Excess ABG Hemoglobin ABG Oxyhemoglobin ABG Sodium ABG Potassium ABG Chloride ABG Glucose Oxyhemoglobin Sodium 129 L Potassium 3.5 L Chloride 92.1 L Carbon Dioxide BUN 35 H Creatinine 10.2 H Glucose 103 H POC Glucose 115 H 119 H Lactic Acid Calcium Phosphorus Magnesium 1.60 L Iron TIBC Transferrin Ferritin Total Bilirubin AST ALT Alkaline Phosphatase Total Protein Albumin Triglycerides Arterial Blood Glucose Arterial Blood Ionized Calcium Digoxin Crossmatch 02/20/21 02/20/21 02/21/21 07:41 22:03 07:00 WBC RBC Hgb Hct MCV MCHC RDW Plt Count Lymph % (Auto) [place] % (Auto) Eos % (Auto) Lymph # (Auto) [place] # (Auto) Eos # (Auto) Seg Neutrophils % Seg Neuts % (Manual) Lymphocytes % (Manual) Monocytes % (Manual) Seg Neutrophils # Seg Neutrophils # Man Lymphocytes # (Manual) Monocytes # (Manual) PT INR ABG pH POC ABG pCO2 POC ABG pO2 ABG pO2 ABG HCO3 ABG O2 Saturation ABG Base Excess ABG Hemoglobin ABG Oxyhemoglobin ABG Sodium ABG Potassium ABG Chloride ABG Glucose Oxyhemoglobin Sodium 128 L 133 L Potassium Chloride 91.0 L 95.3 L Carbon Dioxide BUN 41 H Creatinine 11.8 H 7.1 H Glucose 103 H POC Glucose 109 H Lactic Acid Calcium Phosphorus Magnesium 2.70 H Iron TIBC Transferrin Ferritin Total Bilirubin AST ALT Alkaline Phosphatase Total Protein 5.7 L Albumin 2.8 L Triglycerides Arterial Blood Glucose Arterial Blood Ionized Calcium Digoxin Crossmatch Allied health notes reviewed: nursing
[2021-02-21] MEDS: FAMOTIDINE 20 MG/2 ML INJ IV SCH ×2 (10:43→20:33)
[2021-02-21] MEDS: HEPARIN 5,000 UNIT/1 ML VIAL SUB-Q SCH (10:44)
[2021-02-21] MEDS: ONDANSETRON 4 MG/2 ML INJ IV PRN (11:54)
--- NOTE | 2021-02-21 13:04 | Progress Note ---
Assessment and Plan Cultures: 12/22/2020 blood culture: Streptococcus bovis, Prevotella 12/22/2020 PD fluid culture: No growth 12/24/2020 tracheal aspirate culture: No growth 12/24/2020 blood culture: No growth 12/31/2020 sputum culture: No growth 02/14/2021 blood culture: Staphylococcus epidermidis 02/16/2021 blood culture: No growth A/P: 60-year-old male with ESRD on PD, Crohn's disease, CHF, gastroesophageal reflux disease was admitted to the hospital with complaints of abdominal pain and fever: #Sepsis, secondary to Staph epi bacteremia: CXR without pneumonia. ?line infection. Both lines removed on 02/16/2021. Got new lines on 02/20/2021. #Small bowel obstruction/necrotic bowel: with concern for PD associated peritonitis: Nephrology and general surgery following. Status post exploratory laparotomy on 12/23/2020 with extensive lysis, primary anastomosis, found to have necrotic segment of small bowel. PD catheter remains in place. S/p ex lap, resection of perforated anastamosis, washout and abthera wound vac placement on 01/01. Repeat CT abdomen showed no new abscesses, noted small free fluid. S/p E xploratory laparotomy, Right hemicolectomy, Peritoneal lavage, Partial omentectomy, ABThera wound VAC placement on 01/03/2021. #Streptococcus bovis bacteremia and Prevotella bacteremia: secondary to above. TTE without obvious vegetations. Repeat blood cultures negative. #ESRD: Renally dose antibiotics. Used to be on PD. On HD. Recs: -Complete IV vancomycin, renally dosed on 02/23/2021 Yesika Denny MD, FACP [facility] ([facility] O: [phone] F: [phone] Subjective Date of service: 02/21/21 Principal diagnosis: Ac hypoxemic resp failure; Severe Sepsis; Peritonitis; Acute SBO; ESRD; CHF Interval history: No fever. No complaints. Objective - Exam Narrative Exam: Physical Exam: Constitutional: awake, alert, no distress Head, Ears, Nose: Normocephalic, atraumatic. External ears, nose normal. Eyes: Conjunctivae/corneas clear. No icterus. No ptosis. Neck: supple Cardiovascular: S1, S2 + Respiratory: AE fair bilaterally GI: drains +, midline incision, bowel sounds + Musculoskeletal: No pedal edema, no cyanosis. R subclavian lines + Skin: No rash or abscess Hem/Lymphatic: No palpable cervical or supraclavicular nodes. No lymphangitis Psych: calm, no agitation Neurological: awake, alert, oriented x 3 - Constitutional Vitals: Vital Signs Temp Pulse Resp BP Pulse Ox 98.3 F 90 18 144/73 97 02/21/21 12:00 02/21/21 12:00 02/21/21 12:00 02/21/21 12:00 02/21/21 12:00 Temperature -Last 24 Hours Temperature 98.3 F Temperature 98.7 F Temperature 98.7 F Temperature 99.0 F Temperature 98.4 F Temperature 98.1 F Temperature 98.3 F - Labs CBC & Chem 7: 02/18/21 07:39 02/21/21 07:00 Labs: Abnormal lab results 02/20/21 02/21/21 02/21/21 Range/Units 22:03 07:00 11:16 Sodium 133 L (137-145) mmol/L Chloride 95.3 L (98-107) mmol/L Creatinine 7.1 H (0.8-1.3) mg/dL POC Glucose 109 H 108 H (70-105) mg/dL Total Protein 5.7 L (6.3-8.2) g/dL Albumin 2.8 L (3.9-5) g/dL
--- NOTE | 2021-02-21 13:30 | Discharge Summary ---
Providers - Providers Date of Admission: 12/22/20 19:42 Date of discharge: 02/21/21 Attending physician: MARIANNE OLMOS MD 12/22/20 19:25 Consult to Physician [CONS] Stat Comment: Dr. Ramos spoke with Dr. Cornejo @ 1924 Consulting Provider: RUBY CORNEJO Physician Instructions: Reason For Exam: possible SBP 12/22/20 19:31 Consult to Physician [CONS] Stat Comment: Dr. Ramos spoke with Dr. Sanchez @ 1922 Consulting Provider: LAXMI SANCHEZ Physician Instructions: Reason For Exam: SBO 12/23/20 10:55 Consult to Interventional Radiology [CONS] Routine Consulting Provider: LAXMI OLIVIA Reason For Exam: TUNNELLED DIALYSIS cath placement Place consult to:: VASCULAR Notified:: YES Phone number called:: [phone] Was contact made?: Yes If yes, spoke with:: OFFICE Time called:: 12:10 12/23/20 12:25 Consult to Physician [CONS] Routine Comment: Consulting Provider: ANITA FAULKNER Physician Instructions: Reason For Exam: Possible peritonitis 12/23/20 17:31 Consult to Physician [CONS] Stat Comment: Consulting Provider: ANTOINE SPICER Physician Instructions: 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 12/24/20 12:04 Consult to Dietitian/Nutrition [CONS] Routine Physician Instructions: Reason For Exam: Reason for Consult: Evaluate nutritional intake 12/25/20 17:02 Consult to Dietitian/Nutrition [CONS] Routine Physician Instructions: Reason For Exam: Reason for Consult: Write/Manage TPN/PPN 12/27/20 12:26 Consult to PICC Line RN [CONS] Routine Reason For Exam: PPN administration Type Line:: Midline Physical Therapy Evaluation and Treat [CONS] Routine Comment: Reason For Exam: evaluate and treat please; thank you 12/28/20 10:00 Occupational Therapy Evaluate and Treat [CONS] Routine Comment: Reason For Exam: post op 12/28/20 15:51 Consult to Physician [CONS] Routine Comment: Consulting Provider: EDWARD WESTON Physician Instructions: Reason For Exam: afib rvr 12/31/20 06:40 Consult to Dietitian/Nutrition [CONS] Routine Physician Instructions: Reason For Exam: Reason for Consult: Evaluate nutritional intake 01/08/21 15:20 Consult to Wound/ET Nurse [CONS] Routine Reason For Exam: wound eval - pt has incisional wound vac 01/21/21 14:31 Physical Therapy Evaluation and Treat [CONS] Routine Comment: PLEASE MAKE SURE DRAIN IS SECURED & OUT OF THE WAY Reason For Exam: please evaluate and treat at beside 02/12/21 09:24 Consult to Case Management [CONS] Routine Services Needed at Discharge: Home Health Services Notified:: cm notified Additional Physician Instructions: Patient need home health and home TPN arrangement. Patient wants to go home. 02/14/21 11:08 Consult to Physician [CONS] Routine Comment: Consulting Provider: JARROD MCKENNA Physician Instructions: Reason For Exam: recurrent fever 02/19/21 16:43 Consult to Cardiology [CONS] Routine Consulting Provider: EDWARD WESTON Reason For Exam: arrhythmia Primary care physician: TAMIKA YOUNG Hospitalization Reason for admission: Septic shock, necrotic bowel, bowel obstruction, on PPN Condition: Stable Hospital course: 01/30 Patient with severe sepsis with septic shock, small bowel obstruction, necrotic bowel s/p multiple surgeries. Patient is a 60-year-old male admitted with abdominal pain and noted to have necrotic bowel concerning for PD associated peritonitis. Catheter was placed to convert to HD. Patient also underwent multiple surgical interventions. Initial cultures showed Streptococcus bovis bacteremia and Prevotella bacteremia a COLIN was without vegetations repeat blood cultures have been negative. Part of the surgery is included ex lap, resection of perforated anastomosis, washout and a better wound VAC placement on 01/01. While progress has remained slow if has indeed shown some improvement. Patient is agitated about being in the hospital but understands the care management been provided his vital to his health and to prevent further surgeries. He continues on TPN. No fever currently. Less abdominal pain. Discussed with Surgeon, Dr. Pollock, few days ago. Continue current management. He also has paroxysmal afib, managed by Cardiology. He is on Metoprolol, Digoxin, Clonidine. ESRD on dialysis managed by Nephrology. Severe Sepsis with shock Streptococcus bovis bacteremia/Prevotella bacteremia Gwendolyn albicans tracheal aspirate Small bowel obstruction/necrotic bowel s/p ex lap with extensive lysis of adhesions, 2 small bowel resections with primary anastomosis, right hemicolectomy, jejunal colonic anastomosis, segmental small bowel resection Postoperative ileus Atrial fibrillation with RVR Leukocytosis Hypochloremia Gwendolyn albicans in tracheal aspirate from 12/24 ESRD on PD, PermCath to be placed Transaminitis Systolic CHF(EF 35%) Crohn's disease Hypertension Hypokalemia and hypophosphatemia -[facility], surgery, infectious disease, nephrology, vascular surgery, cardiology consulted, appreciate recommendations -12/24 S/p ex lap with extensive expectations, 2 small bowel resections with primary anastomosis with surgery on 12/23 -s/p PICC and Permacath placement with vascular surgery on 12/27 -Extubated on 12/28, reintubated 12/31 for respiratory distress and extubated 01/08 -12/29 echocardiogram shows moderate concentric LVH, small pericardial effusion, transmitral Doppler flow pattern is grade 1 abnormal relaxation pattern, left- ventricular systolic function normal, LVEF 50 to 55%, no wall motion abnormalities. -01/01 CT abdomen/pelvis shows small pericardial effusion, mild coronary artery atherosclerotic calcification, small bilateral pleural effusions with associated volume loss, no convincing evidence of bowel obstruction or inflammation, postoperative changes from interval/recent midline laparotomy with a moderate amount of free fluid throughout the abdomen, small amount of dependent free air presumably postoperative -01/02 s/p ex lap, resection of perforated anastamosis, washout and abthera wound vac placement. -01/04 s/p ex lap with right hemicolectomy. -01/06 s/p exploratory laparotomy, Jejunal colonic anastomosis, Segmental small bowel resection. -s/p Vasopressor support with Levophed and vasopressin -Transitioned to HD from PD -HD per nephro, Epogen with HD -Strict NPO -cont TPN, Octreotide drip -s/p NGT to LIWS, now placed on G-tube for decompression - s/p rectal tube -s/p IV antibiotics -Tobacco abuse cessation counseling -Trend CBC, BMP DVT/GI prophylaxis: PPI, heparin subcu, SCDs to bilateral lower extremities while in bed Brief Course: This is a 60 YO Male with ESRD on PD, GERD, Crohn's Disease, Nicotine Dependence, HTN, Systolic CHF(EF 35%) who presented to the emergency d epartment on 12/22 with complaints of abdominal pain which began shortly after eating fast food rated 10/10 which is periumbilical, constant, associated with fever, nausea and multiple sites of vomiting and self-reported inability to undergo PD. In the emergency room patient underwent a CT scan of the abdomen/pelvis which revealed evidence of partial small bowel obstruction, symptoms were consistent with bacterial peritonitis. Patient was admitted to the hospital service with sepsis, peritonitis, and small bowel obstruction with consults to general surgery, nephrology, infectious disease and [facility]. Daily clinical course: 12/23. Patient had temperature 101.2 F, tachycardia and elevated lactic acid on admission. Meet sepsis criteria. Started on IV antibiotics. ID has been consulted. Surgery consulted this a.m.-advised laparoscopy. He remains on NG tube connected to suction. 12/24. Patient was noted to have peritonitis yesterday and patient undergoing exploratory laparotomy. Patient remained intubated after procedure and is in ICU. Now on broad-spectrum antibiotics. ID on board. 12/25. Remains mechanically ventilated and sedated. Temp 103 Fahrenheit. Antibiotics broadened-ID added fluconazole and Flagyl. Blood cultures ordered. Plan to repeat CT abdomen tomorrow if not better. Surgery following. 12/26: Patient remains on mechanical ventilation on CMV tidal line 550, rate of 14, PEEP of 8 and 30% FiO2 and sedated on fentanyl 4 micrograms. Today we will remove his Jeffery and [facility] dropped his rate controlled him on CPAP. We will trend CBC given recent drop in H/H. 12/27: Patient remains intubated on CMV tidal volume 550, rate 12, PEEP 8 on 30% FiO2 at the time my examination. Patient's TPN will be changed to PPN. Patient's fentanyl drip will be changed to IV push fentanyl and have a permacath placed today and midline. Patient was placed on a spontaneous breathing trial was switched back to CMV prior to procedure. 12/28: Patient on fentanyl but awake and follows commands. At the time of my examination he was on a CPAP trial and is scheduled to receive HD today. s/o permacath and PICC placement with vascular yesterday. His blood culture grew Prevotella and addition to Streptococcus bovis. This evening Dr. Spicer attempted to extubate the patient and his heart rate went to the 180s. Stat EKG obtained and cardiology consulted. 12/29: Patient was started on amiodarone IV for A. fib RVR yesterday and today he is more rate controlled into the 70s and 80s. Patient was extubated yesterday and is currently on Ventimask. Patient will be transferred to [facility]. Patient continues to be n.p.o. with TPN and NG tube to LIS. He is hypokalemic today which was repleted. 12/30; patient was on IV amiodarone for treatment with RVR, rate is controlled. Patient was off oxygen. patient is n.p.o. and on TPN. Surgery is following the patient. 12/31: Patient was intubated overnight for respiratory distress and this morning on examination he was on assist control tidal volume 450, rate 20, PEEP 6, 100% FiO2 and RT was getting a ABG to adjust vent settings. Patient had a acute bump in WBC and per ID recommendations we will obtain a CT abdomen/pelvis if leukocytosis persist. Patient is on TPN and sedated with Levophed. Patient is also on vasopressor support with Levophed. Per surgery his ileus is resolving however will maintain OGT to LIWS. 01/01: Patient was started on a vasopressin yesterday late evening. This morning patient is on 20 mcg of Levophed and 0.03 vasopressin and sedated on 20 mcg of propofol. Patient WBC increased today and he is hypokalemic. We will treat hyperkalemia. Patient had a CT chest and abdomen/pelvis pending. The time examination total of 450, rate 20, PEEP of 6 and 35 percent FiO2. Per RN, Dr Pollock has stated that the patient will be returning to the OR today for likely anastomosis seen on CT abdomen/pelvis. 01/02: Patient noted, WBC improving, but noted to have anemia, will transfuse additional unit of Blood and repeat H/H. continue supportive care. 01/03: Continue to wean pressors, ABX PER ID, patient to return to OR today for washout and possible closure, CONTINUE TPN 12: Continues to show some improvement. Today is POD#12 s/p ex lap with extensive lysis of adhesions and two small bowel resections with primary anastamosis for SBO with necrotic segment small bowel. POD#3 s/p ex lap, resection of perforated anastamosis, washout and abthera wound vac placement. POD#1 s/p ex lap with right hemicolectomy. Surgery planning to take back to the OR on Saturday with the hope to anastamos ileum to transverse colon and close abdomen. keep NGT to suction. Pt in deep sedation due to open abdomen. Per ID - Continue IV Zosyn, renally dosed for Strep bacteremia treatment till 01/06/2021 -On TPN 01/05: Patient continues on HD, anticipate return to OR tomorrow for closure and anastemosis. Continues with deep sedation due to open abdomen 01/06: Continue supportive care, monitor pressures and electrolytes. He is post op Exploratory laparotomy, 2. Jejunal colonic anastomosis,3. Segmental small bowel resection and anastemosis closure today. Continue wound vac 15: Continue supportive care, Today is POD#15 s/p ex lap with extensive lysis of adhesions and two small bowel resections with primary anastamosis for SBO with necrotic segment small bowel. POD#6 s/p ex lap, resection of perforated anastamosis, washout and abthera wound vac placement. POD#4 s/p ex lap with right hemicolectomy. POD #1 exploratory laparotomy, 2. Jejunal colonic anastomosis,3. Segmental small bowel resection. Continue to monitor and correct electrolytes. Patient remains on fentanyl and TPN with lipids. Still hypoactive bowel sounds. 16: Patient now extubated, asked when he can go home, Still lethargic. Continue wound management, wound vac, Will need Rehab eval prior to discharge. 01/09: Patient remains on TPN, was started on labetalol drip per cardiology, patient had uncontrolled hypertension today however he cannot be given p.o. medications ileus resolves per surgery. Patient received hemodialysis today. NG tube remains to low intermittent suction. 01/10: Patient has some leukocytosis, slight hypokalemia and hyponatremia, metabolic acidosis. NG tube to LIWS, continue TPN. Patient will be downgraded to IMCU today. [facility] is working on placement. Will change frequency of hydralazine and discontinue labetalol drip. We will obtain a.m. BMP/mag/Phos and CBC. Infectious disease will like to start Zosyn if leukocytosis continues to worsen. 01/11: Patient leukocytosis has slightly improved potassium with in normal limits and other electrolytes are elevated but patient is scheduled for HD today. Remains on RA and A,A,Ox4. BP better controlled but remains elevated and we will increase clonidine dose. 01/12/2021; patient's blood pressure is better after dialysis and as needed IV medications and clonidine patch. Patient is followed by general surgery. Patient was alert and oriented and asked when he is going home. 01/13: Surgery is concerned about a leak at his anastamosis given increased output and will treat as controlled fistula and start an octreotide drip. And per surgery if he requires operative intervention will likely need to be left in discontinuity and eventual ileostomy as he has already failed two anastamoses. Patient still has tongue swelling and slurred speech. He is on Benadryl. 01/14: Patient's tongue swelling is improved, patient is alert and oriented, CAM ICU negative. Continue NG tube to low wall intermittent suction. Leukocytosis is improving. Hypomagnesemia resolved. Epogen with HD 01/15: Patient tongue swelling is much improved, bladder scan completed by bedside RN and he needed to be straight cathed. NGT output decreased. Leukocytosis improving. Patient has been having episodes of hypoglycemia during the day and he is on cyclic TPN, Lantus rescheduled to nightly and dosage decreased. 01/16: Continue management per ID and surgery. Will defer repeat CT of the abdomen to the team surgery has been approved by nephrology. Continue current diet and advance all to ice if okay with surgery discussed with nursing staff. 01/17: Discussed surgical recommendation of strict n.p.o. except for small amount of ice as patient has already failed to anastomosis. And risk for additional surgery with tissues were extremely friable from previous scar. He continues on octreotide drip to slow down GI output HARIS drain remains in place with NG suction for decompression. Patient verbalized understanding although stressed about being discharged. We will continue IMCU care unless otherwise advised by surgery. Prognosis remains guarded continue to monitor electrolytes considering GI output. 01/18: Continue supportive care, BP mildly elevated, continue to monitor, continue current therapy, if no return to PO soon may consider Increasing clonidine to 0.3, PO when ok with surgery. 01/19:Continue supportive care, Per ID continue IV Zosyn, plan to stop at 3 weeks from last surgery end date: 01/24/2021. Other management per surgery. Continue TPN. 01/20: Discussed with Surgery, will continue current management. Advised patient of the findings and plan. 01/21: Continue supportive care. Continue management per surgery advance diet when okay with surgery. Plan of care discussed with the patient in detail. 01/22: NG tube to be replaced explained to the patient why this is important. I agree with PT OT discussed with nursing staff very important to let the PT team know that they should manage HARIS drain while patient is ambulating so that he does not come out. Continue current management. Change in ocreotide to q8h and d/c drip NOTED 01/23: Continue supportive care, HD today, counselling provided to the patient on compliance with medical management 01/24: Replace NGT, Continue management per Surgery. POD 32. Mild hypokalemia noted, will replace. 01/25: Brief summary patient is a 60-year-old male admitted with abdominal pain and noted to have necrotic bowel concerning for PD associated peritonitis. Catheter was placed to convert to HD. Patient also underwent multiple surgical interventions. Initial cultures showed Streptococcus bovis bacteremia and Prevotella bacteremia a COLIN was without vegetations repeat blood cultures have been negative. Part of the surgery is included ex lap, resection of perforated anastomosis, washout and a better wound VAC placement on 01/01. While progress has remained slow if has indeed shown some improvement. Patient is agitated about being in the hospital but understands the care management been provided his vital to his health and to prevent further surgeries. The NG tube has been pulled out 2 days ago he vehemently refused the tube being placed back but after a day of nausea with associated vomiting he was accepting of the chest tube to put back. He continues on TPN. We will continue to monitor electrolytes and correct as needed. This a.m. and erroneous blood was obtained likely from the same line as TPN repeat was done which showed normalizing factors. Patient completed antibiotics on 01/25/2020 . 01/26 Patient with severe sepsis with septic shock, small bowel obstruction, necrotic bowel s/p multiple surgeries. He complains of abdominal pain. No fever currently. He asked me when is he going home and i explained that he is not yet stable for discharge 01/27 Patient with severe sepsis with septic shock, small bowel obstruction, necrotic bowel s/p multiple surgeries. He complains of abdominal pain. No fever currently. Paroxysmal atrial fib managed by cardiology 01/28 Patient with severe sepsis with septic shock, small bowel obstruction, necrotic bowel s/p multiple surgeries. No fever currently. No abd pain currently. I discussed with Surgeon, Dr. Pollock. Continue current management. He also has paroxysmal afib, managed by Cardiology. 01/29 Patient with severe sepsis with septic shock, small bowel obstruction, necrotic bowel s/p multiple surgeries. No fever currently. No abd pain currently. I discussed with Surgeon, Dr. Pollock, yesterday. Continue current management. He also has paroxysmal afib, managed by Cardiology. He is on Metoprolol, Digoxin, Clonidine 01/31: Continue HARIS drain suction. Ongoing treatment for anastomotic leak/controlled low output fistula. Maintain LIWS to NGT and monitor output. continue q 8h ocreotide. cont TPN. Defer to general surgery for NG tube discontinuation. 02/01: planned for g-tube placement for gastric decompression. Removed NG tube today. S/p HD -tolerated well : Status post G-tube placement today, resume TPN, patient is off from rectal tube. Continue supportive care and follow general surgery recommendation for discharge planning. Hemodialysis per schedule 02/03 -02/05: cont TPN, G-tube suction, Continue supportive care and follow general surgery recommendation for discharge planning. Hemodialysis per schedule. 02/06: Per surgery Anastamotic leak slowing down and is a controlled fistula. Continue HARIS drain suction. Since HARIS drain has continued to stay about 10ml over the last several days, plan to continue lower dose of octreotide. continue g-tube to drainage for decompression. continue clear liquids and closely monitor HARIS drain output. patient need LTAC placement. Continue to replace electrolytes and monitor phosphate level 02/07/2021; Per surgery Anastamotic leak slowing down and is a controlled fistula. Continue HARIS drain suction. Since HARIS drain has continued to stay about 10ml over the last several days, plan to continue lower dose of octreotide. continue g-tube to drainage for decompression. continue clear liquids and closely monitor HARIS drain output. patient need LTAC placement. Continue to replace electrolytes and monitor phosphate level. 02/08/2021; patient need to be transferred to LTAC. Patient expressed he wants to go home. 02/09/2021; pending LTAC placement 02/10/2021; pending LTAC placement 02/11/2021;case management continues to find a place to take him. General surgery is considering to discharge him home with home health, home TPN. 02/12/2021; patient expressed to go home. Put a consult for case management to arrange home health and home TPN. 02/13/2021; patient does not want to go to rehab or LTAC. I have discussed with case management about the option of getting home health and home PPN. Case management is working on it. 02/14: Patient now with fever Tmax 101.7, has been low grade prior, will recheck per my discussion with nursing staff. Will check CBC, Procalcitonin, blood clutures, chest xray. Patient is a dialysis patient and has PICC line. From my understanding not returning blood. Will need to check integrity of the line. Nurse to call PICC team. Will like to monitor 24 hrs prior to planned discharge. Understand patient is still on TPN. 02/15: Recurrent spesis, in patient with mulitiple line and TPN, input from ID - f/u blood cultures. PER ID - continue empiric renally dosed Cefepime + Vancomycin + Flagyl + Micafungin (has indwelling lines and has been on TPN) - if no source is identified, may need abdominal imaging with CT with contrast coordinated with dialysis No new FEVER TODAY Continue supportive care. 02/16: Patient seen and examined, 4/4 Bottles positive GPC, ID input noted. Discussed with financing analyst, vascular and the patient, all central lines will be removed following HD today. Continue antibiotics. 02/17/21 patient seen and examined. No new complain. Blood culture is positive for GPC. Repeat blood cultures ordered. Continue IV vancomycin. Continue current management. HD as per nephrology. Infectious disease follow-up. Recheck CBC BMP in the morning. 02/18/21 patient seen and examined. Patient feels better. No new complain. WBC 6.7. Hemoglobin 7.4. Blood culture from 02/14/2021 showed staph epidermidis. Most likely contamination we will follow the repeat blood culture. Continue IV vancomycin. Possible permacath placement on 02/20/2021 for hemodialysis. Infectious disease follow-up. Continue TPN. Recheck CBC BMP in the morning. 02/19: Patient changed to PPN till line re-established for TPN. Continue current management, discussed with nursing staff at bedside 02/20: Patient clinically stable, he is for line placement, he had a run of vtach yesterday, Magnesium replacement was done and will recheck, cardiology consulted. continue abx, discharge when cleared by ID. 02/21/2021; pending subacute rehab placement. Case management is following the patient. Disposition: [id number]/[id number] SN[facility] CERT Final Discharge Diagnosis (Prints w/discharge instructions): Severe Sepsis with shock. Streptococcus bovis bacteremia/Prevotella bacteremia. Gwendolyn albicans tracheal aspirate. Small bowel obstruction/necrotic bowel s/p ex lap with extensive lysis of adhesions, 2 small bowel resections with primary anastomosis, right hemicolectomy, jejunal colonic anastomosis, segmental small bowel resection. Postoperative ileus. Atrial fibrillation with RVR. Leukocytosis. Hypochloremia. Gwendolyn albicans in tracheal aspirate from 12/24. ESRD on PD, PermCath to be placed. Transaminitis. Systolic CHF(EF 35%). Crohn's disease. Hypertension. Hypokalemia and hypophosphatemia Time spent for discharge: 45 minutes - Discharge Diagnoses (1) Atrial fibrillation Status: Acute (2) Nicotine dependence Status: Acute Qualifiers: Nicotine product type: cigarettes Substance use status: in withdrawal Qu alified Code(s): F17.213 - Nicotine dependence, cigarettes, with withdrawal (3) SBP (spontaneous bacterial peritonitis) Status: Acute (4) Small bowel obstruction Status: Acute (5) Small intestinal gangrene Status: Acute (6) Abdominal pain Status: Acute Qualifiers: Abdominal location: generalized Qualified Code(s): R10.84 - Generalized abdominal pain (7) Accelerated hypertension Status: Acute Comment: Patient reviewed accelerated hypertension most likely secondary to medicinal noncompliance. Has been much better since addition of hydralazine IV and by mouth we'll discharge patient home on current by mouth antibiotics of amlodipine 10 mg Coreg 25 mg twice a day and hydralazine 50 mg 3 times a day. (8) CHF (congestive heart failure) Status: Acute Qualifiers: Heart failure chronicity: chronic (9) Cardiomyopathy Status: Acute (10) ESRD (end stage renal disease) Status: Acute Core Measure Documentation - Palliative Care Palliative Care/ Comfort Measures: Not Applicable - Core Measures Any of the following diagnoses?: none Exam - Physical Exam Narrative exam: Patient was not in cardiopulmonary distress The patient appeared well nourished and normally developed. Vital signs as documented. Head exam is unremarkable. No scleral icterus . Neck is without jugular venous distension, thyromegaly, or carotid bruits. Lungs are clear to auscultation. Cardiac exam reveals regular rate and Rhythm. Abdominal exam reveals clean midline surgical laparatomy wound. HARIS tube in place Extremities are nonedematous and both femoral and pedal pulses are normal. ORTHO TECH: Alert and oriented 3. No focal weakness. - Constitutional Vitals: Temp Pulse Resp BP Pulse Ox 98.3 F 90 18 144/73 97 02/21/21 12:00 02/21/21 12:00 02/21/21 12:00 02/21/21 12:00 02/21/21 12:00 Plan Activity: no restrictions Weight Bearing Status: Full Weight Bearing Diet: other (Clear liquid diet and PPN) Care Plan Goals: Antibiotics complete on 02/23/21. Follow up with: TAMIKA YOUNG MD [Primary Care Provider] - 3-5 Days LAXMI SANCHEZ MD [Staff Physician] - 14 Days Prescriptions: Insulin Glargine [Lantus VIAL] 5 units SUB-Q QHS #1 units cloNIDine-TTS PATCH [Catapres-Tts 0.2mg Patch] 0.2 mg TD We #30 patch Fluticasone Propionate 1 spray INTRANASAL DAILY #1 Lispro Insulin [HumaLOG] See Protocol SUB-Q Q6HR #1 vial HYDROcodone/ACETAMINOPHEN [Hydrocodon-Acetamin 7.5-325/15] 15 ml PO Q6H PRN #150 ml PRN Reason: Pain , Severe (7-10) Scopolamine [Transderm-Scop] 1 each TD Q3D #10 patch
--- NOTE | 2021-02-21 15:14 | Progress Note ---
Assessment and Plan POD#54 s/p ex lap with extensive lysis of adhesions and two small bowel resections with primary anastamosis for SBO with necrotic segment small bowel. POD#45 s/p ex lap, resection of perforated anastamosis, washout and abthera wound vac placement. POD#43 s/p ex lap with right hemicolectomy. POD#41 s/p ex lap, with jejunal-colonic anastamosis and closure of abdomen. Febrile episode and stable. 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 Continue HARIS drain suction. HARIS drain must be secured and kept in place. HARIS drain was noted to be sliding out. The black dot that indicates being close to the drainage ports was visible at the level of the skin. Drain was secured with 3 additional nylon sutures. Patient will need to be on TPN for the foreseeable future due to inability to use his GI tract to the point of getting adequate nutrition from oral diet at this time. continue g-tube to drainage for decompression. continue clear liquids and closely monitor HARIS drain output. Afebrile and stable with normalized wbc blood cultures +, continue abx per ID. Status post replacement of permacath. Patient required to have the following daily care task at [facility]. 1. Daily HARIS drain emptying and record amount daily. Pt will need to bring drain log with him to follow up visits in office HARIS DRAIN SHOULD NOT BE REMOVED. THE INDICATOR DOT IS VERY CLOSE TO THE SURFACE OF THE SKIN. DO NOT MANIPULATE EXCEPT TO CHANGE THE DRESSING 2. pt should remain on clear liquids 3. pt should remain on TPN daily 4. wet to drain dressing changes on mid line wound 5. flush g-tube q 12 hours and aspirate if he becomes nauseous or vomits Please call the office to make an appointment in 2 weeks. I will be out of town patient can see Dr. Pollock. Office number is [phone]. Subjective Date of service: 02/21/21 Narrative: No acute events overnight. Patient has permacath replaced yesterday. Patient was accepted to subacute rehab today. Patient had one episode of nausea and vomiting, but has been otherwise able to keep his clear liquids down. Patient continues to have loose bowel movements. Objective Vital Signs - 12hr 02/21/21 02/21/21 02/21/21 04:28 06:36 06:37 Temperature 98.7 F Pulse Rate 92 H 92 H Respiratory 18 Rate Blood Pressure 155/77 155/77 155/77 Blood Pressure [Right] O2 Sat by Pulse 96 Oximetry 02/21/21 02/21/21 02/21/21 07:55 10:44 12:00 Temperature 98.7 F 98.3 F Pulse Rate 94 H 85 90 Respiratory 18 18 Rate Blood Pressure 151/77 Blood Pressure 153/78 144/73 [Right] O2 Sat by Pulse 99 97 Oximetry - General physical appearance well developed, no distress, no pain, chronically ill - Respiratory normal expansion, normal respiratory effort - Abdomen other (HARIS drain with a small amount of cream-colored fluid. Nothing significant recorded over the last 24 hours. G-tube with small amount of bilious drainage. Midline incision with granulation tissue.) - Labs 02/18/21 07:39 02/21/21 07:00 Diabetes panel 02/21/21 Range/Units 07:00 Sodium 133 L (137-145) mmol/L Potassium 3.6 (3.6-5.0) mmol/L Chloride 95.3 L (98-107) mmol/L Carbon Dioxide 28 (22-30) mmol/L BUN 18 (9-20) mg/dL Creatinine 7.1 H (0.8-1.3) mg/dL Glucose 94 (75-100) mg/dL Calcium 8.6 (8.4-10.2) mg/dL AST 18 (5-40) units/L ALT 10 (7-56) units/L Alkaline Phosphatase 129 (35-129) units/L Total Protein 5.7 L (6.3-8.2) g/dL Albumin 2.8 L (3.9-5) g/dL Calcium panel 02/21/21 Range/Units 07:00 Calcium 8.6 (8.4-10.2) mg/dL Phosphorus 3.60 (2.5-4.5) mg/dL Albumin 2.8 L (3.9-5) g/dL Pituitary panel 02/21/21 Range/Units 07:00 Sodium 133 L (137-145) mmol/L Potassium 3.6 (3.6-5.0) mmol/L Chloride 95.3 L (98-107) mmol/L Carbon Dioxide 28 (22-30) mmol/L BUN 18 (9-20) mg/dL Creatinine 7.1 H (0.8-1.3) mg/dL Glucose 94 (75-100) mg/dL Calcium 8.6 (8.4-10.2) mg/dL Adrenal panel 02/21/21 Range/Units 07:00 Sodium 133 L (137-145) mmol/L Potassium 3.6 (3.6-5.0) mmol/L Chloride 95.3 L (98-107) mmol/L Carbon Dioxide 28 (22-30) mmol/L BUN 18 (9-20) mg/dL Creatinine 7.1 H (0.8-1.3) mg/dL Glucose 94 (75-100) mg/dL Calcium 8.6 (8.4-10.2) mg/dL Total Bilirubin 0.70 (0.1-1.2) mg/dL AST 18 (5-40) units/L ALT 10 (7-56) units/L Alkaline Phosphatase 129 (35-129) units/L Total Protein 5.7 L (6.3-8.2) g/dL Albumin 2.8 L (3.9-5) g/dL
[2021-02-21] MEDS ORDERED: TOTAL PARENTERAL NUTRITION 2,016 ML IV SCH (20:00)
[2021-02-21 20:35] VITALS: BP 178/89
== END 2021-02-21 21:28 | DRG 853 ==
LOC: ED 13:44 → 3B 19:42 → 4A 21:09 → CC1 12-23 18:36 → IMCU 12-30 08:05 → CC1 12-31 06:24 → IMCU 01-11 17:50 → 3B-SURG 01-29 18:08
PROVIDERS: ADMIT Internal Medicine; ATTEND Internal Medicine
PROC: 5A1955Z Respiratory Ventilation, Greater than 96 Consecutive Hours (ICD-10-PCS; 2020-12-23)
PROC: 30233N1 Transfusion of Nonautologous Red Blood Cells into Peripheral Vein, Percutaneous Approach (ICD-10-PCS; 2020-12-23)
PROC: 0BH17EZ Insertion of Endotracheal Airway into Trachea, Via Natural or Artificial Opening (ICD-10-PCS; 2020-12-23)
PROC: 5A1955Z Respiratory Ventilation, Greater than 96 Consecutive Hours (ICD-10-PCS; 2020-12-23)
PROC: 4A033R1 Measurement of Arterial Saturation, Peripheral, Percutaneous Approach (ICD-10-PCS; 2020-12-23)
PROC: 0DJD0ZZ Inspection of Lower Intestinal Tract, Open Approach (ICD-10-PCS; 2020-12-23)
PROC: 0DN80ZZ Release Small Intestine, Open Approach (ICD-10-PCS; 2020-12-23)
PROC: 0DT80ZZ Resection of Small Intestine, Open Approach (ICD-10-PCS; 2020-12-23)
PROC: 5A1D70Z Performance of Urinary Filtration, Intermittent, Less than 6 Hours Per Day (ICD-10-PCS; 2020-12-24)
PROC: 02HV33Z Insertion of Infusion Device into Superior Vena Cava, Percutaneous Approach (ICD-10-PCS; 2020-12-24)
PROC: 5A1D70Z Performance of Urinary Filtration, Intermittent, Less than 6 Hours Per Day (ICD-10-PCS; 2020-12-26)
PROC: 0JH63XZ Insertion of Tunneled Vascular Access Device into Chest Subcutaneous Tissue and Fascia, Percutaneous Approach (ICD-10-PCS; 2020-12-27)
PROC: 5A09457 Assistance with Respiratory Ventilation, 24-96 Consecutive Hours, Continuous Positive Airway Pressure (ICD-10-PCS; principal; 2020-12-28)
PROC: 5A1D70Z Performance of Urinary Filtration, Intermittent, Less than 6 Hours Per Day (ICD-10-PCS; 2020-12-28)
PROC: 5A1D70Z Performance of Urinary Filtration, Intermittent, Less than 6 Hours Per Day (ICD-10-PCS; 2020-12-30)
PROC: 0BH17EZ Insertion of Endotracheal Airway into Trachea, Via Natural or Artificial Opening (ICD-10-PCS; 2020-12-31)
PROC: 30233N1 Transfusion of Nonautologous Red Blood Cells into Peripheral Vein, Percutaneous Approach (ICD-10-PCS; 2021-01-01)
PROC: 0DJD0ZZ Inspection of Lower Intestinal Tract, Open Approach (ICD-10-PCS; 2021-01-01)
PROC: 0DBU0ZZ Excision of Omentum, Open Approach (ICD-10-PCS; 2021-01-01)
PROC: 0DBU0ZZ Excision of Omentum, Open Approach (ICD-10-PCS; 2021-01-01)
PROC: 0WPGX3Z Removal of Infusion Device from Peritoneal Cavity, External Approach (ICD-10-PCS; 2021-01-01)
PROC: 5A1D70Z Performance of Urinary Filtration, Intermittent, Less than 6 Hours Per Day (ICD-10-PCS; 2021-01-02)
PROC: 0DJD0ZZ Inspection of Lower Intestinal Tract, Open Approach (ICD-10-PCS; 2021-01-03)
PROC: 0DTF0ZZ Resection of Right Large Intestine, Open Approach (ICD-10-PCS; 2021-01-03)
PROC: 3E1M38Z Irrigation of Peritoneal Cavity using Irrigating Substance, Percutaneous Approach (ICD-10-PCS; 2021-01-03)
PROC: 5A1D70Z Performance of Urinary Filtration, Intermittent, Less than 6 Hours Per Day (ICD-10-PCS; 2021-01-04)
PROC: 5A1D70Z Performance of Urinary Filtration, Intermittent, Less than 6 Hours Per Day (ICD-10-PCS; 2021-01-06)
PROC: 30233N1 Transfusion of Nonautologous Red Blood Cells into Peripheral Vein, Percutaneous Approach (ICD-10-PCS; 2021-01-06)
PROC: 0DJD0ZZ Inspection of Lower Intestinal Tract, Open Approach (ICD-10-PCS; 2021-01-06)
PROC: 0DTA0ZZ Resection of Jejunum, Open Approach (ICD-10-PCS; 2021-01-06)
PROC: 5A09357 Assistance with Respiratory Ventilation, Less than 24 Consecutive Hours, Continuous Positive Airway Pressure (ICD-10-PCS; 2021-01-07)
PROC: 5A1D70Z Performance of Urinary Filtration, Intermittent, Less than 6 Hours Per Day (ICD-10-PCS; 2021-01-09)
PROC: 5A09357 Assistance with Respiratory Ventilation, Less than 24 Consecutive Hours, Continuous Positive Airway Pressure (ICD-10-PCS; 2021-01-10)
PROC: 5A1D70Z Performance of Urinary Filtration, Intermittent, Less than 6 Hours Per Day (ICD-10-PCS; 2021-01-11)
PROC: 5A1D70Z Performance of Urinary Filtration, Intermittent, Less than 6 Hours Per Day (ICD-10-PCS; 2021-01-13)
PROC: 5A09357 Assistance with Respiratory Ventilation, Less than 24 Consecutive Hours, Continuous Positive Airway Pressure (ICD-10-PCS; 2021-01-15)
PROC: 5A1D70Z Performance of Urinary Filtration, Intermittent, Less than 6 Hours Per Day (ICD-10-PCS; 2021-01-16)
PROC: 5A1D70Z Performance of Urinary Filtration, Intermittent, Less than 6 Hours Per Day (ICD-10-PCS; 2021-01-18)
PROC: 5A1D70Z Performance of Urinary Filtration, Intermittent, Less than 6 Hours Per Day (ICD-10-PCS; 2021-01-19)
PROC: 5A1D70Z Performance of Urinary Filtration, Intermittent, Less than 6 Hours Per Day (ICD-10-PCS; 2021-01-20)
PROC: 5A1D70Z Performance of Urinary Filtration, Intermittent, Less than 6 Hours Per Day (ICD-10-PCS; 2021-01-23)
PROC: 5A1D70Z Performance of Urinary Filtration, Intermittent, Less than 6 Hours Per Day (ICD-10-PCS; 2021-01-25)
PROC: 5A1D70Z Performance of Urinary Filtration, Intermittent, Less than 6 Hours Per Day (ICD-10-PCS; 2021-01-27)
PROC: 5A1D70Z Performance of Urinary Filtration, Intermittent, Less than 6 Hours Per Day (ICD-10-PCS; 2021-01-28)
PROC: 5A1D70Z Performance of Urinary Filtration, Intermittent, Less than 6 Hours Per Day (ICD-10-PCS; 2021-01-30)
PROC: 5A1D70Z Performance of Urinary Filtration, Intermittent, Less than 6 Hours Per Day (ICD-10-PCS; 2021-02-01)
PROC: 0DH63UZ Insertion of Feeding Device into Stomach, Percutaneous Approach (ICD-10-PCS; 2021-02-02)
PROC: BD12ZZZ Fluoroscopy of Stomach (ICD-10-PCS; 2021-02-02)
PROC: 5A1D70Z Performance of Urinary Filtration, Intermittent, Less than 6 Hours Per Day (ICD-10-PCS; 2021-02-03)
PROC: 5A1D70Z Performance of Urinary Filtration, Intermittent, Less than 6 Hours Per Day (ICD-10-PCS; 2021-02-06)
PROC: 5A1D70Z Performance of Urinary Filtration, Intermittent, Less than 6 Hours Per Day (ICD-10-PCS; 2021-02-08)
PROC: 5A1D70Z Performance of Urinary Filtration, Intermittent, Less than 6 Hours Per Day (ICD-10-PCS; 2021-02-10)
PROC: 5A1D70Z Performance of Urinary Filtration, Intermittent, Less than 6 Hours Per Day (ICD-10-PCS; 2021-02-13)
PROC: 5A1D70Z Performance of Urinary Filtration, Intermittent, Less than 6 Hours Per Day (ICD-10-PCS; 2021-02-15)
PROC: 5A1D70Z Performance of Urinary Filtration, Intermittent, Less than 6 Hours Per Day (ICD-10-PCS; 2021-02-16)
PROC: 5A1D70Z Performance of Urinary Filtration, Intermittent, Less than 6 Hours Per Day (ICD-10-PCS; 2021-02-20)
PROC: 0JH63XZ Insertion of Tunneled Vascular Access Device into Chest Subcutaneous Tissue and Fascia, Percutaneous Approach (ICD-10-PCS; 2021-02-20)
DX: A41.9 Sepsis, unspecified organism (principal); R65.21 Severe sepsis with septic shock; K65.2 Spontaneous bacterial peritonitis; J96.01 Acute respiratory failure with hypoxia; I50.23 Acute on chronic systolic (congestive) heart failure; K63.1 Perforation of intestine (nontraumatic); N18.6 End stage renal disease; K56.609 Unspecified intestinal obstruction, unspecified as to partial versus complete obstruction; E87.2 Acidosis; K56.600 Partial intestinal obstruction, unspecified as to cause; I96 Gangrene, not elsewhere classified; I13.2 Hypertensive heart and chronic kidney disease with heart failure and with stage 5 chronic kidney disease, or end stage renal disease; I48.20 Chronic atrial fibrillation, unspecified; K56.7 Ileus, unspecified; Z20.822 Contact with and (suspected) exposure to COVID-19; D70.9 Neutropenia, unspecified; R50.81 Fever presenting with conditions classified elsewhere; E87.5 Hyperkalemia; D63.1 Anemia in chronic kidney disease; B37.9 Candidiasis, unspecified; R74.01 Elevation of levels of liver transaminase levels; F17.210 Nicotine dependence, cigarettes, uncomplicated; K21.9 Gastro-esophageal reflux disease without esophagitis; D64.9 Anemia, unspecified; Z87.11 Personal history of peptic ulcer disease; Z79.899 Other long term (current) drug therapy; Z79.891 Long term (current) use of opiate analgesic; Z79.01 Long term (current) use of anticoagulants; Z71.6 Tobacco abuse counseling; Z99.2 Dependence on renal dialysis; R79.89 Other specified abnormal findings of blood chemistry
CPT/HCPCS: 36415; 36558; 36600; 49465; 71045; 71250; 74018; 74022; 74176; 77001; 80048; 80053; 80074; 80162; 80202; 81001; 82140; 82728; 82803; 82805; 82947; 82962; 83550; 83690; 83735; 84100; 84132; 84145; 84443; 84478; 84484; 85007; 85014; 85018; 85025; 85027; 85610; 85730; 86850; 86900; 86901; 86920; 87040; 87070; 87076; 87116; 87186; 87205; 88300; 88302; 88305; 88307; 88341; 88342; 89051; 93005; 93306; 93970; 94002; 94003; 94660; 96374; G0378; J7070; C1750; C1751; C1769; J0282; J0295; J0330; J0360; J0610; J0690; J0692; J0885; J1160; J1170; J1200; J1450; J1630; J1644; J1815; J2060; J2248; J2250; J2270; J2354; J2370; J2405; J2543; J2704; J2920; J3010; J3370; J3475; J3480; J7030; J7040; J7050; J7060; P9016; P9017; P9047; Q0162; Q9967; U0003

== ENCOUNTER 2021-02-25 19:24 | Emergency (ER) | payer MEDICARE ==
--- NOTE | 2021-02-25 20:18 | Emergency Department Report ---
ED General Adult HPI - General Chief complaint: Recheck/Abnormal Lab/Rx Stated complaint: LOW HEMIGLOBIN Time Seen by Provider: 02/25/21 19:44 Source: patient, EMS Mode of arrival: Stretcher Limitations: No Limitations - History of Present Illness Initial comments: Patient is 60 years old male with history of end-stage renal disease on hemodialysis, hypertension and congestive heart failure.. Patient also had history of chronic anemia. Patient brought to the emergency room via EMS from a local rehab facility after patient was received a call from his primary doctor to come to the ER for check of his hemoglobin. Patient stated that he had dialysis today and he did not have any symptoms or issues. Patient denied any hematemesis, hematochezia or melena. He also denied any hemoptysis. Severity scale (0 -10): 0 - Related Data Home Medications Medication Instructions Recorded Confirmed Last Taken Calcium Acetate 667 mg PO DAILY 04/20/20 02/05/21 10/31/20 09:00 Centrum Men's Tablet 1 tab PO DAILY 04/20/20 02/05/21 10/31/20 09:00 Cinacalcet 30 mg PO DAILY 04/20/20 02/05/21 10/31/20 09:00 Dialyvite with Zinc Tablet 1 tab PO DAILY 04/20/20 02/05/21 10/31/20 09:00 Magnesium 250 mg PO BID 04/20/20 02/05/21 10/31/20 17:00 Triamcinolone 0.1% 1 1000units TRANSDERMA DAILY 04/20/20 02/05/21 10/31/20 09:00 Vit B12/Folic Acid/B6/Aa No.15 1,000 mg PO DAILY 04/20/20 02/05/21 10/31/20 09:00 amLODIPine 10 mg PO DAILY 06/09/20 02/05/21 10/31/20 09:00 AtorvaSTATin 40 mg PO HS 11/01/20 02/05/21 10/31/20 21:00 Benadryl 25 mg PO HS 11/01/20 02/05/21 10/31/20 21:00 Diclofenac 1 applic TRANSDERMA QID 11/01/20 02/05/21 10/31/20 19:00 Vitamin D3 2,000 units PO QDAY 11/01/20 02/05/21 10/31/20 09:00 carvediloL 12.5 mg PO DAILY 11/01/20 02/05/21 10/31/20 09:00 hydrALAZINE 100 mg PO TID 11/01/20 02/05/21 10/31/20 19:00 Previous Rx's Medication Instructions Recorded Last Taken Type Albuterol Mdi (or & Nicu Only) 2 puff IH QID PRN #1 inhalation 04/01/17 10/31/20 09:00 Rx [ProAir HFA Inhaler] Fluticasone Propionate 1 spray INTRANASAL DAILY #1 02/21/21 Unknown Rx HYDROcodone/ACETAMINOPHEN 15 ml PO Q6H PRN #150 ml 02/21/21 Unknown Rx [Hydrocodon-Acetamin 7.5-325/15] Insulin Glargine [Lantus VIAL] 5 units SUB-Q QHS #1 units 02/21/21 Unknown Rx Lispro Insulin [HumaLOG] See Protocol SUB-Q Q6HR #1 vial 02/21/21 Unknown Rx Scopolamine [Transderm-Scop] 1 each TD Q3D #10 patch 02/21/21 Unknown Rx cloNIDine-TTS PATCH [Catapres-Tts 0.2 mg TD We #30 patch 02/21/21 Unknown Rx 0.2mg Patch] Allergies Allergy/AdvReac Type Severity Reaction Status Date / Time No Known Allergies Allergy Verified 06/09/20 15:27 ED Review of Systems ROS: Stated complaint: LOW HEMIGLOBIN Other details as noted in HPI Comment: All other systems reviewed and negative Constitutional: denies: chills, fever Respiratory: denies: cough, shortness of breath, SOB with exertion Cardiovascular: denies: chest pain, palpitations, dyspnea on exertion Gastrointestinal: denies: abdominal pain, nausea, vomiting, diarrhea, constipat ion, hematemesis, melena, hematochezia Genitourinary: denies: urgency, dysuria, hematuria Musculoskeletal: denies: back pain Neurological: denies: headache, weakness, numbness, paresthesias ED Past Medical Hx - Past Medical History Previous Medical History?: Yes Hx Hypertension: Yes Hx Heart Attack/AMI: No Hx Congestive Heart Failure: Yes ([place] 2013) Hx Diabetes: No Hx GERD: Yes Hx Renal Disease: Yes Hx Sickle Cell Disease: No Hx Headaches / Migraines: Yes Hx Seizures: No Hx Asthma: No Hx COPD: No Hx Dementia: No Hx HIV: No Additional medical history: Crohns - Surgical History Past Surgical History?: Yes Hx Cholecystectomy: Yes ([place] 1998) Hx Appendectomy: Yes ([place] 2007) - Social History Smoking Status: Former Smoker Substance Use Type: None - Medications Home Medications: Home Medications Medication Instructions Recorded Confirmed Last Taken Type Albuterol Mdi (or & Nicu Only) 2 puff IH QID PRN #1 inhalation 04/01/17 02/05/21 10/31/20 09:00 Rx [ProAir HFA Inhaler] Calcium Acetate 667 mg PO DAILY 04/20/20 02/05/21 10/31/20 09:00 History Centrum Men's Tablet 1 tab PO DAILY 04/20/20 02/05/21 10/31/20 09:00 History Cinacalcet 30 mg PO DAILY 04/20/20 02/05/21 10/31/20 09:00 History Dialyvite with Zinc Tablet 1 tab PO DAILY 04/20/20 02/05/21 10/31/20 09:00 History Magnesium 250 mg PO BID 04/20/20 02/05/21 10/31/20 17:00 History Triamcinolone 0.1% 1 1000units TRANSDERMA DAILY 04/20/20 02/05/21 10/31/20 09:00 History Vit B12/Folic Acid/B6/Aa No.15 1,000 mg PO DAILY 04/20/20 02/05/21 10/31/20 09:00 History amLODIPine 10 mg PO DAILY 06/09/20 02/05/21 10/31/20 09:00 History AtorvaSTATin 40 mg PO HS 11/01/20 02/05/21 10/31/20 21:00 History Benadryl 25 mg PO HS 11/01/20 02/05/21 10/31/20 21:00 History Diclofenac 1 applic TRANSDERMA QID 11/01/20 02/05/21 10/31/20 19:00 History Vitamin D3 2,000 units PO QDAY 11/01/20 02/05/21 10/31/20 09:00 History carvediloL 12.5 mg PO DAILY 11/01/20 02/05/21 10/31/20 09:00 History hydrALAZINE 100 mg PO TID 11/01/20 02/05/21 10/31/20 19:00 History Fluticasone Propionate 1 spray INTRANASAL DAILY #1 02/21/21 Unknown Rx HYDROcodone/ACETAMINOPHEN 15 ml PO Q6H PRN #150 ml 02/21/21 Unknown Rx [Hydrocodon-Acetamin 7.5-325/15] Insulin Glargine [Lantus VIAL] 5 units SUB-Q QHS #1 units 02/21/21 Unknown Rx Lispro Insulin [HumaLOG] See Protocol SUB-Q Q6HR #1 vial 02/21/21 Unknown Rx Scopolamine [Transderm-Scop] 1 each TD Q3D #10 patch 02/21/21 Unknown Rx cloNIDine-TTS PATCH [Catapres-Tts 0.2 mg TD We #30 patch 02/21/21 Unknown Rx 0.2mg Patch] ED Physical Exam - General Limitations: No Limitations General appearance: alert, in no apparent distress - Head Head exam: Present: atraumatic, normocephalic, normal inspection - Eye Eye exam: Present: normal appearance - ENT ENT exam: Present: normal exam, normal orophraynx, mucous membranes moist - Neck Neck exam: Present: normal inspection, full ROM. Absent: tenderness, meningismus - Respiratory Respiratory exam: Present: normal lung sounds bilaterally - Cardiovascular Cardiovascular Exam: Present: regular rate, normal rhythm, normal heart sounds - GI/Abdominal GI/Abdominal exam: Present: soft. Absent: distended, tenderness, guarding - Extremities Exam Extremities exam: Present: normal inspection, full ROM, normal capillary refill. Absent: tenderness - Back Exam Back exam: Present: normal inspection, full ROM. Absent: CVA tenderness (R), CVA tenderness (L) - Neurological Exam Neurological exam: Present: alert, oriented X3, CN II-XII intact - Psychiatric Psychiatric exam: Present: normal mood - Skin Skin exam: Present: warm, intact, normal color ED Course Vital Signs 02/25/21 02/25/21 02/25/21 19:48 20:01 20:15 Temperature 98.4 F Pulse Rate 82 79 71 Respiratory 19 18 18 Rate Blood Pressure 144/67 133/67 Blood Pressure 166/71 [Left] O2 Sat by Pulse 97 99 96 Oximetry 02/25/21 02/25/21 02/25/21 20:31 20:45 21:01 Temperature Pulse Rate 69 70 76 Respiratory 16 15 15 Rate Blood Pressure 151/73 153/72 156/74 Blood Pressure [Left] O2 Sat by Pulse 95 95 96 Oximetry 02/25/21 02/25/21 02/25/21 21:15 21:31 21:45 Temperature Pulse Rate 72 75 71 Respiratory 15 14 13 Rate Blood Pressure 158/72 157/71 159/75 Blood Pressure [Left] O2 Sat by Pulse 93 94 94 Oximetry 02/25/21 02/25/21 02/25/21 22:01 22:15 22:31 Temperature Pulse Rate 71 77 69 Respiratory 14 19 14 Rate Blood Pressure 157/75 156/71 150/73 Blood Pressure [Left] O2 Sat by Pulse 94 96 95 Oximetry 02/25/21 02/25/21 02/25/21 22:39 22:41 22:51 Temperature 98.5 F Pulse Rate 69 71 Respiratory 15 16 Rate Blood Pressure 165/76 151/76 Blood Pressure [Left] O2 Sat by Pulse 96 95 Oximetry 02/25/21 02/25/21 02/25/21 23:01 23:11 23:31 Temperature Pulse Rate 79 72 71 Respiratory 16 15 14 Rate Blood Pressure 152/73 158/75 160/77 Blood Pressure [Left] O2 Sat by Pulse 95 94 95 Oximetry ED Medical Decision Making - Lab Data Result diagrams: 02/25/21 20:17 02/25/21 20:17 - Medical Decision Making Patient is 60 years old male with history of end-stage renal disease on hemodialysis, hypertension and congestive heart failure.. Patient also had history of chronic anemia. Patient brought to the emergency room via EMS from a local rehab facility after patient was received a call from his primary doctor to come to the ER for check of his hemoglobin. Patient stated that he had dialysis today and he did not have any symptoms or issues. Patient denied any hematemesis, hematochezia or melena. He also denied any hemoptysis. Patient remained stable in the ER with stable vital sign. Labs reviewed and showed a hemoglobin of 6.5. I discussed the patient with Dr. Scherer, patient farm agent who advised to give the patient 1 units of PRBC and patient can be discharged back to his rehab. Patient advised to follow-up with his primary care physician in the next 2 to 3 days and to return to the ER if he develop any new symptoms. Critical Care Time: Yes Critical care time in (mins) excluding proc time.: 30 Critical care attestation.: If time is entered above; I have spent that time in minutes in the direct care of this critically ill patient, excluding procedure time. ED Disposition Clinical Impression: Acute anemia, ESRD (end stage renal disease) Disposition: TO HOME OR SELFCARE Is pt being admited?: No Condition: Stable Instructions: Dialysis, Blood Transfusion, Adult, Care After, [id number] Referrals: SABINO SCHERER MD [Staff Physician] - 3-5 Days
[2021-02-25 20:37] LABS: Basophils # (Auto) 0.1 K/mm3 (0.0-0.1); Basophils % (Auto) 0.6 % (0.0-1.8); Eosinophils # (Auto) 0.3 K/mm3 (0.0-0.4); Eosinophils % (Auto) 3.4 % (0.0-4.3); Hemoglobin 6.5 gm/dl (11.8-15.2); Lymphocytes # (Auto) 0.8 K/mm3 (1.2-5.4); Mean Corpuscular HGB Conc 33 % (32-34); Mean Corpuscular Volume 91 fl (84-94); Monocytes % (Auto) 10.5 % (0.0-7.3); Platelet Count 302 K/mm3 (140-440); Red Cell Distribution Width 15.8 % (13.2-15.2)
[2021-02-25 20:54] LABS: INR 1.01 (0.87-1.13)
[2021-02-25 20:55] LABS: Calcium 7.9 mg/dL (8.4-10.2); Partial Thromboplastin Time 39.3 Sec. (24.2-36.6)
[2021-02-25] MEDS ORDERED: SODIUM CHLORIDE 0.9% 500 ML 500 ML IV ONE (22:06)
[2021-02-25] MEDS ORDERED: SODIUM CHLORIDE 0.9% 1000 ML 0 ML ONE (22:23)
[2021-02-26 04:57] VITALS: BP 156/76
== END 2021-02-26 07:38 | disposition home or self-care (01) ==
LOC: ED 19:24
DX: D64.89 Other specified anemias (principal); N18.6 End stage renal disease; Z99.2 Dependence on renal dialysis; I13.2 Hypertensive heart and chronic kidney disease with heart failure and with stage 5 chronic kidney disease, or end stage renal disease; G43.809 Other migraine, not intractable, without status migrainosus; I50.9 Heart failure, unspecified; K21.9 Gastro-esophageal reflux disease without esophagitis
CPT/HCPCS: 36415; 36430; 80048; 85025; 85610; 85730; 86850; 86900; 86901; 86920; 99291; P9016; 99283; J7030

== ENCOUNTER 2021-03-15 10:25 | Inpatient (IN) | payer MEDICARE ==
[2021-03-15] MEDS ORDERED: SODIUM CHLORIDE 0.9% 500 ML 500 ML IV ONE (11:18)
[2021-03-15] MEDS ORDERED: ACETAMINOPHEN 500 MG TAB PO ONE (11:28)
--- NOTE | 2021-03-15 11:42 | Emergency Department Report ---
HPI - General Chief Complaint: Altered Mental Status Time Seen by Provider: 03/15/21 11:21 - HPI HPI: Room 2 The patient is a 60-year-old male present with a chief complaint of fever and hypoxia. The patient is currently at [facility] and they state the patient was found to be hypoxic this morning to 78% on room air. Patient is not on oxygen normally at the nursing facility. The patient was placed on a nonrebreather and his sats increased to over 90%. Staff states the patient was not behaving like his normal self this morning not answering simple questions or talking on the phone so the patient was subsequently sent to the emergency department for further evaluation. Staff states the patient was last dialyzed yesterday. The patient appears confused in the ED on asked for me to come to the emergency department patient replies "I need blood." But does not answer follow-up questions ED Past Medical Hx - Past Medical History Hx Hypertension: Yes Hx Congestive Heart Failure: Yes (IN 2013) Hx GERD: Yes Hx Renal Disease: Yes Hx Headaches / Migraines: Yes Additional medical history: Crohns - Surgical History Hx Cholecystectomy: Yes ([place] 1998) Hx Appendectomy: Yes ([place] 2007) - Family History Family history: no significant - Social History Smoking Status: Former Smoker Substance Use Type: None - Medications Home Medications: Home Medications Medication Instructions Recorded Confirmed Last Taken Type Albuterol Mdi (or & Nicu Only) 2 puff IH QID PRN #1 inhalation 04/01/17 03/15/21 10/31/20 09:00 Rx [ProAir HFA Inhaler] Calcium Acetate 667 mg PO DAILY 04/20/20 03/15/21 10/31/20 09:00 History Centrum Men's Tablet 1 tab PO DAILY 04/20/20 03/15/21 10/31/20 09:00 History Cinacalcet 30 mg PO DAILY 04/20/20 03/15/21 10/31/20 09:00 History Dialyvite with Zinc Tablet 1 tab PO DAILY 04/20/20 03/15/21 10/31/20 09:00 History Magnesium 250 mg PO BID 04/20/20 03/15/21 10/31/20 17:00 History Triamcinolone 0.1% 1 1000units TRANSDERMA DAILY 04/20/20 03/15/21 10/31/20 09:00 History Vit B12/Folic Acid/B6/Aa No.15 1,000 mg PO DAILY 04/20/20 03/15/21 10/31/20 09:00 History amLODIPine 10 mg PO DAILY 06/09/20 03/15/21 10/31/20 09:00 History AtorvaSTATin 40 mg PO HS 11/01/20 03/15/21 10/31/20 21:00 History Benadryl 25 mg PO HS 11/01/20 03/15/21 10/31/20 21:00 History Diclofenac 1 applic TRANSDERMA QID 11/01/20 03/15/21 10/31/20 19:00 History Vitamin D3 2,000 units PO QDAY 11/01/20 03/15/21 10/31/20 09:00 History carvediloL 12.5 mg PO DAILY 11/01/20 03/15/21 10/31/20 09:00 History hydrALAZINE 100 mg PO TID 11/01/20 03/15/21 10/31/20 19:00 History Fluticasone Propionate 1 spray INTRANASAL DAILY #1 02/21/21 03/15/21 Unknown Rx HYDROcodone/ACETAMINOPHEN 15 ml PO Q6H PRN #150 ml 02/21/21 03/15/21 Unknown Rx [Hydrocodon-Acetamin 7.5-325/15] Insulin Glargine [Lantus VIAL] 5 units SUB-Q QHS #1 units 02/21/21 03/15/21 Unknown Rx Lispro Insulin [HumaLOG] See Protocol SUB-Q Q6HR #1 vial 02/21/21 03/15/21 Unknown Rx Scopolamine [Transderm-Scop] 1 each TD Q3D #10 patch 02/21/21 03/15/21 Unknown Rx cloNIDine-TTS PATCH [Catapres-Tts 0.2 mg TD We #30 patch 02/21/21 03/15/21 Unknown Rx 0.2mg Patch] ED Review of Systems ROS: Stated complaint: FEVER/HIGH HEART RATE Other details as noted in HPI Comment: Unobtainable due to pts medical conditions Physical Exam - Physical Exam Vital Signs: Vital Signs 03/15/21 11:12 Temperature 103.2 F H Pulse Rate 110 H Respiratory 24 Rate Blood Pressure 120/70 [Right] O2 Sat by Pulse 97 Oximetry Physical Exam: GENERAL: The patient is well-developed well-nourished male lying on stretcher not appearing to be in acute distress. Patient appears slightly confused HEENT: Normocephalic. Atraumatic. Extraocular motions are intact. Patient has moist mucous membranes. NECK: Supple. Trachea midline CHEST/LUNGS: Clear to auscultation. There is no respiratory distress noted. HEART/CARDIOVASCULAR: Regular. There is no tachycardia. There is no gallop rub or murmur. ABDOMEN: Abdomen is soft, with appropriate postop tenderness. HARIS drain coming from the right abdomen has approximately 4 mL brown-greenish serous fluid. Patient has normal bowel sounds. There is no abdominal distention. SKIN: There is no rash. There is no edema. There is no diaphoresis. NEURO: The patient is awake and alert. The patient is cooperative but appears slightly confused. The patient has no focal neurologic deficits. The patient has normal speech MUSCULOSKELETAL: There is no evidence of acute injury. ED Course Vital Signs 03/15/21 11:12 Temperature 103.2 F H Pulse Rate 110 H Respiratory 24 Rate Blood Pressure 120/70 [Right] O2 Sat by Pulse 97 Oximetry - Consultations Consultation #1: 03/15/21 12:50 Nephrology paged 03/15/21 13:00 Case briefly discussed with nephrology nurse practitioner Liz to administer IV contrast ED Medical Decision Making - Lab Data Result diagrams: 03/15/21 11:23 03/15/21 11:23 - EKG Data -: EKG Interpreted by Me EKG shows normal: sinus rhythm Rate: normal - EKG Data When compared to previous EKG there are: no significant change Interpretation: other (PVC) - Radiology Data Radiology results: report reviewed (Chest x-ray, CT chest, CT abdomen pelvis), image reviewed (Chest x-ray, CT chest, CT abdomen pelvis) interpreted by me: Chest x-ray-no definite focal infiltrates, no pneumothorax [facility] [address] [place] [address] XRay Report Signed Patient: ELISE PIMENTEL MR#: [id number] : 1960 Acct:[id number] Age/Sex: 60 / M ADM Date: 03/15/21 Loc: ED Attending Dr: Ordering Physician: NADJA LIVE MD Date of Service: 03/15/21 Procedure(s): XR chest 1V ap Accession Number(s): [id number] cc: NADJA LIVE MD Pa uoro Time In Minutes: CHEST 1 VIEW 03/15/2021 11:49 AM INDICATION / CLINICAL INFORMATION: possible Sepsis. COMPARISON: 02/14/2021 FINDINGS: SUPPORT DEVICES: There is interval removal of left-sided support devices with interval placement of a right central venous catheter and right dialysis catheter. The central venous catheter terminates within the lower SVC. The dialysis catheter terminates at the cavoatrial junction. HEART / MEDIASTINUM: Stable. LUNGS / PLEURA: No significant pulmonary or pleural abnormality. No pneumothorax. ADDITIONAL FINDINGS: No significant additional findings. IMPRESSION: 1. Medical support devices as above, no pneumothorax. No acute cardiac pulmonary abnormality. Signer Name: Homer Vela DO Signed: 03/15/2021 12:17 PM Workstation Name: [id number] Transcribed By: NS Dictated By: HOMER VELA DO Electronically Authenticated By: HOMER VELA DO Signed Date/Time: 03/15/21 121 DD/ 1214 TD/TT: Print Cancel [facility] [address] [place] [address] Cat Scan Report Signed Patient: ELISE PIMENTEL MR#: [id number] : 1960 Acct:[id number] Age/Sex: 60 / M ADM Date: 03/15/21 Loc: ED Attending Dr: Ordering Physician: NADJA LIVE MD Date of Service: 03/15/21 Procedure(s): CT abdomen pelvis w con Accession Number(s): [id number] cc: NADJA LIVE MD CT ABDOMEN AND PELVIS WITH CONTRAST INDICATION / CLINICAL INFORMATION: Hypoxia, fever,100ml of omni 350 given . TECHNIQUE: Axial CT images were obtained through the abdomen and pelvis after 100 mL's of Omnipaque [address] scans at this location are performed using CT dose reduction for ALARA by means of automated exposure control. COMPARISON: 01/31/2021 FINDINGS: LOWER CHEST: Pulmonary embolism is seen within the right lower lobe pulmonary artery, which is predominantly described on concurrent CT pulmonary angiogram. AORTA / ARTERIES: Mild atherosclerotic calcification without acute abnormality. IVC / VEINS: No significant abnormality. LYMPH NODES: There are numerous retrop eritoneal lymph nodes, unchanged. COLON: Diverticulosis without acute inflammation. There is post surgical change to the proximal colon. APPENDIX: Appendectomy. STOMACH / SMALL BOWEL: There are numerous air-fluid levels noted throughout the small bowel with near diffuse small bowel dilation. There is a percutaneous gastric tube, terminating within the roly nitish cardia. PERITONEUM: No free fluid. There is a percutaneous surgical drain involving the right peritoneum with redemonstrated intraperitoneal air, decreased compared to prior CT.. LIVER: No significant liver parenchymal abnormality. There is periportal edema, likely related to fluid status. GALLBLADDER: Cholecystectomy. BILE DUCTS: No significant abnormality. PANCREAS: There is a peripancreatic fluid collection, which may represent a pseudocyst. This fluid collection measures approximately 6.6 x 3.3 cm x 4.8. Within the superior portion of the pancreatic body there is a fluid attenuating lesion measuring approximately 1.4 cm, which appears to communicate with the pancreatic duct, likely representing a side branch IPMN. SPLEEN: No significant abnormality. ADRENALS: No significant abnormality. RIGHT KIDNEY / URETER: There are numerous hypoattenuating lesions scattered throughout the right kidney which likely represent renal cysts. LEFT KIDNEY / URETER: There are numerous hypoattenuating lesions scattered throughout the left kidney which most likely represent renal cyst. URINARY BLADDER: No significant abnormality. REPRODUCTIVE ORGANS: No significant abnormality. SKELETAL SYSTEM: No significant abnormality. ADDITIONAL FINDINGS: None. IMPRESSION: 1. Redemonstrated pulmonary embolism within the right lower lobe. This was reported in the CT pulmonary angiogram and communicated to the ordering provider. 2. Multiple air-fluid levels with near diffusely dilated loops of small bowel. This suggests an adynamic ileus. 3. Newly developed focal fluid collection between the lesser curvature of the stomach and pancreas. This s uggests a pancreatic pseudocyst. 4. Other incidental findings as above. Signer Name: Homer Vela DO Signed: 03/15/2021 5:07 PM Workstation Name: [id number] Transcribed By: NAPOLEON Dictated By: HOMER VELA DO Electronically Authenticated By: HOMER VELA DO Signed Date/Time: 03/15/21 1707 DD/ 1616 TD/TT: Print Cancel [facility] [address] [place] [address] Cat Scan Report Signed Patient: ELISE PIMENTEL MR#: [id number] : 1960 Acct:[id number] Age/Sex: 60 / M ADM Date: 03/15/21 Loc: ED Attending Dr: Ordering Physician: NADJA LIVE MD Date of Service: 03/15/21 Procedure(s): CT angio chest Accession Number(s): [id number] cc: NADJA LIVE MD CTA CHEST WITH CONTRAST INDICATION / CLINICAL INFORMATION: Hypoxia, fever OMNI 350 100ML . TECHNIQUE: Axial CT images were obtained through the chest after injection of 100 mL's of Omnipaque 350 IV contrast. 3 plane MIP and/or 3D reconstructions were produced. All CT scans at this location are performed using CT dose reduction for ALARA by means of automated exposure control. COMPARISON: None available. FINDINGS: PULMONARY ARTERIES: Filling defects are noted within the right lower lobe. THORACIC AORTA: No significant abnormality. HEART: Cardiomegaly CORONARY ARTERY CALCIFICATION: Mild. MEDIASTINUM / JAKE: No significant abnormality. PLEURA: No pleural effusion. No pneumothorax. LUNGS: No acute air space or interstitial disease. There is paraseptal emphysema. There is a 1.0 cm nodule within the right lung apex which may be secondary to apical pleural thickening. ADDITIONAL FINDINGS: None. UPPER ABDOMEN: No acute findings. SKELETAL STRUCTURES: No significant osseous abnormality. IMPRESSION: 1. Pulmonary emboli within the right lower lobe pulmonary artery. 2. No acute findings. 3. Possible 1.0 cm nodular density within the right lung apex. Follow- up CT of the chest is can be obtained in 3 months. CRITICAL RESULT Time of Discovery (AUTOMOTIVE EXHAUST EMISSIONS TECHNICIAN/CDT): 1525 Time of Communication (AUTOMOTIVE EXHAUST EMISSIONS TECHNICIAN/CDT): 1535 Licensed Practitioner Receiving Report: Dr. Live Read-Back Performed: Yes. Signer Name: Homer Vela DO Signed: 03/15/2021 4:43 PM Workstation Name: [id number] Transcribed By: NAPOLEON Dictated By: HOMER VELA DO Electronically Authenticated By: HOMER VELA DO Signed Date/Time: 03/15/21 1643 DD/ 1629 TD/TT: Print Cancel - Differential Diagnosis Pneumonia, postop atelectasis, UTI, bacteremia, Critical care attestation.: If time is entered above; I have spent that time in minutes in the direct care of this critically ill patient, excluding procedure time. ED Disposition Clinical Impression: Pulmonary embolus, Hypoxia, Altered mental status, Fever Disposition: OP ADMIT IP TO THIS HOSP Is pt being admited?: Yes Does the pt Need Aspirin: No Condition: Fair Referrals: PRIMARY CARE,MD [Primary Care Provider] - 3-5 Days Time of Disposition: 17:27 (Hospitalist notified (Dr. James))
[2021-03-15 11:50] LABS: Hematocrit 20.1 % (35.5-45.6); Hemoglobin 6.7 gm/dl (11.8-15.2); Mean Corpuscular HGB Conc 34 % (32-34); Mean Corpuscular Volume 90 fl (84-94); Platelet Count 190 K/mm3 (140-440); Red Blood Count 2.24 M/mm3 (3.65-5.03); Red Cell Distribution Width 16.4 % (13.2-15.2)
[2021-03-15 12:14] LABS: INR 1.07 (0.87-1.13)
[2021-03-15 12:15] LABS: Albumin 3.1 g/dL (3.9-5); Calcium 9.2 mg/dL (8.4-10.2)
--- NOTE | 2021-03-15 12:21 | XRay Report ---
CHEST 1 VIEW 03/15/2021 11:49 AM INDICATION / CLINICAL INFORMATION: possible Sepsis. COMPARISON: 02/14/2021 FINDINGS: SUPPORT DEVICES: There is interval removal of left-sided support devices with interval placement of a right central venous catheter and right dialysis catheter. The central venous catheter terminates wi thin the lower SVC. The dialysis catheter terminates at the cavoatrial junction. HEART / MEDIASTINUM: Stable. LUNGS / PLEURA: No significant pulmonary or pleural abnormality. No pneumothorax. ADDITIONAL FINDINGS: No significant additional findings. IMPRESSION: 1. Medical support devices as above, no pneumothorax. No acute cardiac pulmonary abnormality. Signer Name: Homer Lock DO Signed: 03/15/2021 12:17 PM Workstation Name: [id number]
[2021-03-15 14:28] LABS: Anisocytosis Few; Band Neutrophils # (Manual) 0.8 K/mm3; Hypochromasia 1+; Platelet Estimate Consistent w Auto; Total Cells Counted 100
[2021-03-15] MEDS ORDERED: SODIUM CHLORIDE 0.9% 100 ML IV PRN (16:00)
[2021-03-15 16:38] LABS: Hepatitis B Surface Antigen Non-Reactive (Negative); Hepatitis C Virus Antibody Non-Reactive (NonReactive)
--- NOTE | 2021-03-15 16:48 | Cat Scan Report ---
CTA CHEST WITH CONTRAST INDICATION / CLINICAL INFORMATION: Hypoxia, fever OMNI 350 100ML . TECHNIQUE: Axial CT images were obtained through the chest after injection of 100 mL's of Omnipaque 3 50 IV contrast. 3 plane MIP and/or 3D reconstructions were produced. All CT scans at this location ar e performed using CT dose reduction for ALARA by means of automated exposure control. COMPARISON: None available. FINDINGS: PULMONARY ARTERIES: Filling defects are noted within the right lower lobe. THORACIC AORTA: No significant abnormality. HEART: Cardiomegaly CORONARY ARTERY CALCIFICATION: Mild. MEDIASTINUM / JAKE: No significant abnormality. PLEURA: No pleural effusion. No pneumothorax. LUNGS: No acute air space or interstitial disease. There is paraseptal emphysema. There is a 1.0 cm n odule within the right lung apex which may be secondary to apical pleural thickening. ADDITIONAL FINDINGS: None. UPPER ABDOMEN: No acute findings. SKELETAL STRUCTURES: No significant osseous abnormality. IMPRESSION: 1. Pulmonary emboli within the right lower lobe pulmonary artery. 2. No acute findings. 3. Possible 1.0 cm nodular density within the right lung apex. Follow-up CT of the chest is can be ob tained in 3 months. CRITICAL RESULT Time of Discovery (OFFSHORE WIND TURBINE TECHNICIAN/CDT): 1525 Time of Communication (OFFSHORE WIND TURBINE TECHNICIAN/CDT): 1535 Licensed Practitioner Receiving Report: Dr. Martinez Read-Back Performed: Yes. Signer Name: Homer Lock DO Signed: 03/15/2021 4:43 PM Workstation Name: [id number]
--- NOTE | 2021-03-15 17:12 | Cat Scan Report ---
CT ABDOMEN AND PELVIS WITH CONTRAST INDICATION / CLINICAL INFORMATION: Hypoxia, fever,100ml of omni 350 given . TECHNIQUE: Axial CT images were obtained through the abdomen and pelvis after 100 mL's of Omnipaque [address] scans at this location are performed using CT dose reduction for ALARA by juan a jones of automated exposure control. COMPARISON: 01/31/2021 FINDINGS: LOWER CHEST: Pulmonary embolism is seen within the right lower lobe pulmonary artery, which is predom inantly described on concurrent CT pulmonary angiogram. AORTA / ARTERIES: Mild atherosclerotic calcification without acute abnormality. IVC / VEINS: No significant abnormality. LYMPH NODES: There are numerous retroperitoneal lymph nodes, unchanged. COLON: Diverticulosis without acute inflammation. There is post surgical change to the proximal colon . APPENDIX: Appendectomy. STOMACH / SMALL BOWEL: There are numerous air-fluid levels noted throughout the small bowel with near diffuse small bowel dilation. There is a percutaneous gastric tube, terminating within the gastric c ardia. PERITONEUM: No free fluid. There is a percutaneous surgical drain involving the right peritoneum wit h redemonstrated intraperitoneal air, decreased compared to prior CT.. LIVER: No significant liver parenchymal abnormality. There is periportal edema, likely related to flu id status. GALLBLADDER: Cholecystectomy. BILE DUCTS: No significant abnormality. PANCREAS: There is a peripancreatic fluid collection, which may represent a pseudocyst. This fluid co llection measures approximately 6.6 x 3.3 cm x 4.8. Within the superior portion of the pancreatic bod y there is a fluid attenuating lesion measuring approximately 1.4 cm, which appears to communicate wi th the pancreatic duct, likely representing a side branch IPMN. SPLEEN: No significant abnormality. ADRENALS: No significant abnormality. RIGHT KIDNEY / URETER: There are numerous hypoattenuating lesions scattered throughout the right kidn ey which likely represent renal cysts. LEFT KIDNEY / URETER: There are numerous hypoattenuating lesions scattered throughout the left kidney which most likely represent renal cyst. URINARY BLADDER: No significant abnormality. REPRODUCTIVE ORGANS: No significant abnormality. SKELETAL SYSTEM: No significant abnormality. ADDITIONAL FINDINGS: None. IMPRESSION: 1. Redemonstrated pulmonary embolism within the right lower lobe. This was reported in the CT pulmona ry angiogram and communicated to the ordering provider. 2. Multiple air-fluid levels with near diffusely dilated loops of small bowel. This suggests an adyna sandi ileus. 3. Newly developed focal fluid collection between the lesser curvature of the stomach and pancreas. T his suggests a pancreatic pseudocyst. 4. Other incidental findings as above. Signer Name: Homer Lock DO Signed: 03/15/2021 5:07 PM Workstation Name: [id number]
[2021-03-15] MEDS ORDERED: HEPARIN 10,000 UNITS/10 ML VIAL IV PRN (17:16)
[2021-03-15] MEDS ORDERED: PIPERACIL-TAZO 2.25 GM/50 ML 2.25 GM/50 ML BAG IV ONE (17:25)
--- NOTE | 2021-03-15 17:37 | Consultation ---
History of Present Illness - Reason for Consult Consult date: 03/15/21 - History of Present Illness This is a 60-year-old man with end-stage renal disease on hemodialysis with extensive surgical history who was sent from the [facility] due to acute encephalopathy, fever and hypoxia. Nephrology was consulted for ESRD management. Patient although oriented to self and place is unable to provide information regarding why he is currently at the hospital. Medications and Allergies Allergies Allergy/AdvReac Type Severity Reaction Status Date / Time No Known Allergies Allergy Verified 06/09/20 15:27 Home Medications Medication Instructions Recorded Confirmed Last Taken Type Albuterol Mdi (or & Nicu Only) 2 puff IH QID PRN #1 inhalation 04/01/17 03/15/21 10/31/20 09:00 Rx [ProAir HFA Inhaler] Calcium Acetate 667 mg PO DAILY 04/20/20 03/15/21 10/31/20 09:00 History Centrum Men's Tablet 1 tab PO DAILY 04/20/20 03/15/21 10/31/20 09:00 History Cinacalcet 30 mg PO DAILY 04/20/20 03/15/21 10/31/20 09:00 History Dialyvite with Zinc Tablet 1 tab PO DAILY 04/20/20 03/15/21 10/31/20 09:00 H istory Magnesium 250 mg PO BID 04/20/20 03/15/21 10/31/20 17:00 History Triamcinolone 0.1% 1 1000units TRANSDERMA DAILY 04/20/20 03/15/21 10/31/20 09:00 History Vit B12/Folic Acid/B6/Aa No.15 1,000 mg PO DAILY 04/20/20 03/15/21 10/31/20 09:00 History amLODIPine 10 mg PO DAILY 06/09/20 03/15/21 10/31/20 09:00 History AtorvaSTATin 40 mg PO HS 11/01/20 03/15/21 10/31/20 21:00 History Benadryl 25 mg PO HS 11/01/20 03/15/21 10/31/20 21:00 History Diclofenac 1 applic TRANSDERMA QID 11/01/20 03/15/21 10/31/20 19:00 History Vitamin D3 2,000 units PO QDAY 11/01/20 03/15/21 10/31/20 09:00 History carvediloL 12.5 mg PO DAILY 11/01/20 03/15/21 10/31/20 09:00 History hydrALAZINE 100 mg PO TID 11/01/20 03/15/21 10/31/20 19:00 History Fluticasone Propionate 1 spray INTRANASAL DAILY #1 02/21/21 03/15/21 Unknown Rx HYDROcodone/ACETAMINOPHEN 15 ml PO Q6H PRN #150 ml 02/21/21 03/15/21 Unknown Rx [Hydrocodon-Acetamin 7.5-325/15] Insulin Glargine [Lantus VIAL] 5 units SUB-Q QHS #1 units 02/21/21 03/15/21 Unknown Rx Lispro Insulin [HumaLOG] See Protocol SUB-Q Q6HR #1 vial 02/21/21 03/15/21 Unknown Rx Scopolamine [Transderm-Scop] 1 each TD Q3D #10 patch 02/21/21 03/15/21 Unknown Rx cloNIDine-TTS PATCH [Catapres-Tts 0.2 mg TD We #30 patch 02/21/21 03/15/21 Unknown Rx 0.2mg Patch] Active Meds: Active Medications Heparin Sodium (Porcine) (Heparin 10,000 Units/10 Ml Vial) 3,200 unit 40 unit/kg (3200 unit) IV Q6H PRN PRN Reason: Anti-Xa Assay<0.1 units/ml Sodium Chloride (Nacl 0.9%) 100 mls @ 999 mls/hr IV RYLAND PRN PRN Reason: Hypotension Piperacillin Sod/Tazobactam Sod (Zosyn/Ns 2.25 Gm/50ml) 2.25 gm in 50 mls @ 100 mls/hr IV ONCE ONE; Protocol Stop: 03/15/21 17:54 Review of Systems Constitutional: fever, no chills Ears, nose, mouth and throat: no nasal congestion, no nasal discharge Cardiovascular: no chest pain, no orthopnea Respiratory: no cough, no shortness of breath Gastrointestinal: no abdominal pain, no nausea Musculoskeletal: no muscle weakness, no muscle cramps Integumentary: no rash, no pruritis Neurological: no weakness, no parathesias Psychiatric: confusion, no memory loss Allergic/Immunologic: no wheezing Exam - Vital Signs Vital signs: Vital Signs Pulse Resp 98 H 18 03/15/21 11:03 03/15/21 11:03 Results - Lab Results 03/15/21 11:23 03/15/21 11:23 Most recent lab results ABG pH 7.367 (7.320-7.450) 03/15/21 12:54 ABG O2 Saturation 89.9 (0-100) 03/15/21 12:54 Calcium 9.2 mg/dL (8.4-10.2) 03/15/21 11:23 Assessment and Plan Assessment - End-stage renal disease on hemodialysis - Anemia of ESRD - Fever - Hypoxia Recommendations - Plan for HD today, continue MWF - Monitor labs and volume status daily and assess need for additional dialysis session - Epogen with HD - Sepsis w/u as per primary - Agree with antibiotics - Recommend surgery evaluation, given extensive surgical h/o and drain in place - ESRD diet with 1.4 g/kg per day protein - Renally dose medication for creatinine clearance less than 15 cc/min - Patient at the time of my visit was oriented to self and place, able to follow commands and is agreeable to plan for dialysis today.
--- NOTE | 2021-03-15 19:07 | History and Physical Report ---
History of Present Illness Date of examination: 03/15/21 Date of admission: 03/15/2021 Chief complaint: Shortness of breath, fever History of present illness: 60-year-old male resident of [facility] presents to the ED with a chief complaint of fever hypoxemia acute respiratory failure. Patient has past history of congestive heart failure, hypertension, end-stage renal disease and Crohn's disease. Patient was found in the nursing facility to be hypoxic. Patient was noted not to be his normal self. Patient is usually very alert and interactive and this time was much more somnolent. Vitals were taken and patient found to be hypoxemic with O2 sats of 78. Patient was placed on nonrebreather at the facility and transferred to the ED here. Upon presentation patient was noted to be hypoxemic as well was placed on 4 L of oxygen now and seems to be saturating in the upper 90s. Patient remains lethargic. Able to answer simple questions. Very poor historian at this time very difficult to gain any viable history. Patient is not even able to tell me that he has chest pain. He mumbles. Did state he was short of breath. Patient received CT scan in the a.m. for work-up of hypoxemia and was found to have right sided pulmonary embolism. Patient was admitted placed on heparin drip. Past History Past Medical History: arrhythmia, anemia, heart failure, hypertension, renal failure. denies: hypothyroidism, liver disease, pulmonary embolism Past Surgical History: Other (Unable to appreciate secondary to poor historian did state he had an eye surgery here.) Social history: full code. denies: smoking, alcohol abuse, prescription drug abuse Family history: no significant family history Medications and Allergies Allergies Allergy/AdvReac Type Severity Reaction Status Date / Time No Known Allergies Allergy Verified 06/09/20 15:27 Home Medications Medication Instructions Recorded Confirmed Last Taken Type Albuterol Mdi (or & Nicu Only) 2 puff IH QID PRN #1 inhalation 04/01/17 03/15/21 10/31/20 09:00 Rx [ProAir HFA Inhaler] Calcium Acetate 667 mg PO DAILY 04/20/20 03/15/21 10/31/20 09:00 History Centrum Men's Tablet 1 tab PO DAILY 04/20/20 03/15/21 10/31/20 09:00 History Cinacalcet 30 mg PO DAILY 04/20/20 03/15/21 10/31/20 09:00 History Dialyvite with Zinc Tablet 1 tab PO DAILY 04/20/20 03/15/21 10/31/20 09:00 History Magnesium 250 mg PO BID 04/20/20 03/15/21 10/31/20 17:00 History Triamcinolone 0.1% 1 1000units TRANSDERMA DAILY 04/20/20 03/15/21 10/31/20 09:00 History Vit B12/Folic Acid/B6/Aa No.15 1,000 mg PO DAILY 04/20/20 03/15/21 10/31/20 09:00 History amLODIPine 10 mg PO DAILY 06/09/20 03/15/21 10/31/20 09:00 History AtorvaSTATin 40 mg PO HS 11/01/20 03/15/21 10/31/20 21:00 History Benadryl 25 mg PO HS 11/01/20 03/15/21 10/31/20 21:00 History Diclofenac 1 applic TRANSDERMA QID 11/01/20 03/15/21 10/31/20 19:00 History Vitamin D3 2,000 units PO QDAY 11/01/20 03/15/21 10/31/20 09:00 History carvediloL 12.5 mg PO DAILY 11/01/20 03/15/21 10/31/20 09:00 History hydrALAZINE 100 mg PO TID 11/01/20 03/15/21 10/31/20 19:00 History Fluticasone Propionate 1 spray INTRANASAL DAILY #1 02/21/21 03/15/21 Unknown Rx HYDROcodone/ACETAMINOPHEN 15 ml PO Q6H PRN #150 ml 02/21/21 03/15/21 Unknown Rx [Hydrocodon-Acetamin 7.5-325/15] Insulin Glargine [Lantus VIAL] 5 units SUB-Q QHS #1 units 02/21/21 03/15/21 Unknown Rx Lispro Insulin [HumaLOG] See Protocol SUB-Q Q6HR #1 vial 02/21/21 03/15/21 Unknown Rx Scopolamine [Transderm-Scop] 1 each TD Q3D #10 patch 02/21/21 03/15/21 Unknown Rx cloNIDine-TTS PATCH [Catapres-Tts 0.2 mg TD We #30 patch 02/21/21 03/15/21 Unknown Rx 0.2mg Patch] Active Meds: Active Medications Heparin Sodium (Porcine) (Heparin 10,000 Units/10 Ml Vial) 3,200 unit 40 unit/kg (3200 unit) IV Q6H PRN PRN Reason: Anti-Xa Assay<0.1 units/ml Sodium Chloride (Nacl 0.9%) 100 mls @ 999 mls/hr IV RYLAND PRN PRN Reason: Hypotension Review of Systems ROS unobtainable: due to mental status Exam - Constitutional Vitals: Temp Pulse Resp BP Pulse Ox 103.2 F H 79 25 H 121/68 91 03/15/21 11:12 03/15/21 18:01 03/15/21 15:00 03/15/21 18:01 03/15/21 13:01 General appearance: Present: mild distress, well-nourished. Absent: cachectic, malodorous - EENT Eyes: Present: PERRL, EOM intact ENT: hearing intact, clear oral mucosa, poor dentition - Neck Neck: Present: supple, normal ROM - Respiratory Respiratory: right: diminished - Extremities Extremities: pulses symmetrical, No edema - Abdominal General gastrointestinal: Present: other (HARIS drain serosanguineous exudate) - Musculoskeletal Musculoskeletal: generalized weakness - Psychiatric Psychiatric: other (Poor cognition) - Neurologic Neurologic: CNII-XII intact, other (No focal deficits) Results - Labs CBC & Chem 7: 03/15/21 11:23 03/15/21 11:23 Labs: Laboratory Last Values WBC 6.4 K/mm3 (4.5-11.0) 03/15/21 11:23 RBC 2.24 M/mm3 (3.65-5.03) L 03/15/21 11:23 Hgb 6.7 gm/dl (11.8-15.2) L 03/15/21 11:23 Hct 20.1 % (35.5-45.6) L 03/15/21 11:23 MCV 90 fl (84-94) 03/15/21 11:23 MCH 30 pg (28-32) 03/15/21 11:23 MCHC 34 % (32-34) 03/15/21 11:23 RDW 16.4 % (13.2-15.2) H 03/15/21 11:23 Plt Count 190 K/mm3 (140-440) 03/15/21 11:23 Hickman % (Auto) Veterinarian 03/15/21 11:23 Add Manual Diff Complete 03/15/21 11:23 Total Counted 100 03/15/21 11:23 Seg Neuts % (Manual) 78.0 % (40.0-70.0) H 03/15/21 11:23 Band Neutrophils % 12.0 % 03/15/21 11:23 Lymphocytes % (Manual) 2.0 % (13.4-35.0) L 03/15/21 11:23 Reactive Lymphs % (Man) 1.0 % 03/15/21 11:23 Monocytes % (Manual) 7.0 % (0.0-7.3) 03/15/21 11:23 Nucleated RBC % Not Reportable 03/15/21 11:23 Seg Neutrophils # Man 5.0 K/mm3 (1.8-7.7) 03/15/21 11:23 Band Neutrophils # 0.8 K/mm3 03/15/21 11:23 Lymphocytes # (Manual) 0.1 K/mm3 (1.2-5.4) L 03/15/21 11:23 Abs React Lymphs (Man) 0.1 K/mm3 03/15/21 11:23 Monocytes # (Manual) 0.4 K/mm3 (0.0-0.8) 03/15/21 11:23 Eosinophils # (Manual) 0.0 K/mm3 (0.0-0.4) 03/15/21 11:23 Basophils # (Manual) 0.0 K/mm3 (0.0-0.1) 03/15/21 11:23 Metamyelocytes # 0.0 K/mm3 03/15/21 11:23 Myelocytes # 0.0 K/mm3 03/15/21 11:23 Promyelocytes # 0.0 K/mm3 03/15/21 11:23 Blast Cells # 0.0 K/mm3 03/15/21 11:23 WBC Morphology Not Reportable 03/15/21 11:23 Hypersegmented Neuts Not Reportable 03/15/21 11:23 Hyposegmented Neuts Not Reportable 03/15/21 11:23 Hypogranular Neuts Not Reportable 03/15/21 11:23 Smudge Cells Not Reportable 03/15/21 11:23 Toxic Granulation Not Reportable 03/15/21 11:23 Toxic Vacuolation Not Reportable 03/15/21 11:23 Dohle Bodies Not Reportable 03/15/21 11:23 Pelger-Huet Anomaly Not Reportable 03/15/21 11:23 Lamar Rods Not Reportable 03/15/21 11:23 Platelet Estimate Consistent w auto 03/15/21 11:23 Clumped Platelets Not Reportable 03/15/21 11:23 Plt Clumps, EDTA Not Reportable 03/15/21 11:23 Large Platelets Not Reportable 03/15/21 11:23 Giant Platelets Not Reportable 03/15/21 11:23 Platelet Satelliting Not Reportable 03/15/21 11:23 Plt Morphology Comment Not Reportable 03/15/21 11:23 RBC Morphology Not Reportable 03/15/21 11:23 Dimorphic RBCs Not Reportable 03/15/21 11:23 Polychromasia Not Reportable 03/15/21 11:23 Hypochromasia 1+ 03/15/21 11:23 Poikilocytosis Not Reportable 03/15/21 11:23 Anisocytosis Few 03/15/21 11:23 Microcytosis Not Reportable 03/15/21 11:23 Macrocytosis Not Reportable 03/15/21 11:23 Spherocytes Not Reportable 03/15/21 11:23 Pappenheimer Bodies Not Reportable 03/15/21 11:23 Sickle Cells Not Reportable 03/15/21 11:23 Target Cells Not Reportable 03/15/21 11:23 Tear Drop Cells Not Reportable 03/15/21 11:23 Ovalocytes Not Reportable 03/15/21 11:23 Helmet Cells Not Reportable 03/15/21 11:23 Washburn-Emery Bodies Not Reportable 03/15/21 11:23 Sutton Rings Not Reportable 03/15/21 11:23 Miller Cells Not Reportable 03/15/21 11:23 Bite Cells Not Reportable 03/15/21 11:23 Crenated Cell Not Reportable 03/15/21 11:23 Elliptocytes Not Reportable 03/15/21 11:23 Acanthocytes (Spur) Not Reportable 03/15/21 11:23 Rouleaux Not Reportable 03/15/21 11:23 Hemoglobin C Crystals Not Reportable 03/15/21 11:23 Schistocytes Not Reportable 03/15/21 11:23 Malaria parasites Not Reportable 03/15/21 11:23 Lucas Bodies Not Reportable 03/15/21 11:23 Hem Pathologist Commnt No 03/15/21 11:23 PT 14.4 Sec. (12.2-14.9) 03/15/21 11:23 INR 1.07 (0.87-1.13) 03/15/21 11:23 ABG pH 7.367 (7.320-7.450) 03/15/21 12:54 POC ABG pCO2 28.5 mmHg (32.0-48.0) L 03/15/21 12:54 POC ABG pO2 62.8 mmHg (83-108) L 03/15/21 12:54 POC ABG HCO3 16.0 03/15/21 12:54 ABG O2 Saturation 89.9 (0-100) 03/15/21 12:54 POC ABG Base Excess -8.5 03/15/21 12:54 ABG Hemoglobin 6.3 (12.0-17.5) L 03/15/21 12:54 ABG Oxyhemoglobin 87.9 (94-98) L 03/15/21 12:54 ABG Methemoglobin 0.3 (0.0-1.5) 03/15/21 12:54 ABG Sodium 127.9 mmol/L (136.0-145.0) L 03/15/21 12:54 ABG Potassium 4.3 mmol/L (3.40-4.50) 03/15/21 12:54 ABG Chloride 100.0 mmol/L (98-107) 03/15/21 12:54 ABG Glucose 98 mg/dL (65-95) H 03/15/21 12:54 VBG pH 7.344 (7.320-7.420) 03/15/21 11:23 Carboxyhemoglobin 1.9 (0.5-1.5) H 03/15/21 12:54 FiO2 % 21.0 03/15/21 12:54 Sodium 130 mmol/L (137-145) L 03/15/21 11:23 Potassium 4.9 mmol/L (3.6-5.0) 03/15/21 11:23 Chloride 94.0 mmol/L (98-107) L 03/15/21 11:23 Carbon Dioxide 20 mmol/L (22-30) L 03/15/21 11:23 Anion Gap 21 mmol/L 03/15/21 11:23 BUN 78 mg/dL (9-20) H 03/15/21 11:23 Creatinine 9.0 mg/dL (0.8-1.3) H 03/15/21 11:23 Estimated GFR 7 ml/min 03/15/21 11:23 BUN/Creatinine Ratio 9 % 03/15/21 11:23 Glucose 103 mg/dL (75-100) H 03/15/21 11:23 Lactic Acid 0.80 mmol/L (0.7-2.0) 03/15/21 15:55 Calcium 9.2 mg/dL (8.4-10.2) 03/15/21 11:23 Total Bilirubin 1.40 mg/dL (0.1-1.2) H 03/15/21 11:23 AST 340 units/L (5-40) H 03/15/21 11:23 ALT 457 units/L (7-56) H 03/15/21 11:23 Alkaline Phosphatase 408 units/L (35-129) H 03/15/21 11:23 Total Protein 7.2 g/dL (6.3-8.2) 03/15/21 11:23 Albumin 3.1 g/dL (3.9-5) L 03/15/21 11:23 Albumin/Globulin Ratio 0.8 % 03/15/21 11:23 Arterial Blood Glucose 98 mg/dL (65-95) H 03/15/21 12:54 Hepatitis A IgM Ab Non-reactive (NonReactive) 03/15/21 15:55 Hep Bs Antigen Non-reactive (Negative) 03/15/21 15:55 Hep B Core IgM Ab Reactive (NonReactive) A 03/15/21 15:55 Hepatitis C Antibody Non-reactive (NonReactive) 03/15/21 15:55 Microbiology: Microbiology 03/15/21 11:23 Peripheral/Venous Blood Culture - Preliminary Culture in Progress 03/15/21 11:23 Peripheral/Venous Blood Culture - Preliminary Culture in Progress Assessment and Plan Advance Directives: No (Poor cognition) VTE prophylaxis?: Chemical Plan of care discussed with patient/family: Yes - Patient Problems (1) Elevated liver transaminase level Current Visit: Yes Status: Acute Plan to address problem: Patient markedly elevated transaminase levels since last month. Differential diagnosis includes acute infection with hepatitis B. Patient has hepatitis B core antigen positive IgM. Will place ID consult. We will also need to rule out ischemic bowel given recent extensive surgery for small bowel obstruction and lysis of adhesions. Surgical consult as well. GI consult for pancreatic pseudocyst -Provide supportive care with pain control -Above consultations (2) Altered mental status Current Visit: Yes Status: Acute Plan to address problem: Multifactorial hypoxemia, uremia with the possibility of acute infectious hepa titis. -Treat underlying etiology of pulmonary embolism with heparin drip -Optimize oxygenation -Aggressive support of anemia with transfusion with hemodialysis. -Patient will also need hemodialysis as well. (3) Fever Current Visit: Yes Status: Acute Plan to address problem: Could be secondary to pulmonary embolism versus hepatitis B infection (4) Pulmonary embolus Current Visit: Yes Status: Acute Plan to address problem: IV heparin Supportive care oxygenation If possible early conversion to Eliquis especially if surgical option not on the table (5) CHF (congestive heart failure) Current Visit: No Status: Acute Qualifiers: Heart failure chronicity: chronic Plan to address problem: Fairly well compensated at this time. (6) ESRD (end stage renal disease) Current Visit: No Status: Acute Plan to address problem: Patient will require hemodialysis renal consult has been ordered. (7) Full code status Current Visit: No Status: Acute (8) Hepatitis B core antibody positive Current Visit: Yes Status: Acute Plan to address problem: Supportive care Gentle fluid hydration since patient is on hemodialysis. ID consult (9) Ischemic bowel disease Current Visit: Yes Status: Acute Plan to address problem: Rule out ischemic bowel given recent GI surgery. Rule out small bowel obstruction CT scan abdomen. (10) Anemia Current Visit: Yes Status: Acute Plan to address problem: Anemia of chronic disease. No evidence of acute GI blood loss anemia. Will transfuse 1 unit packed red blood cells.
[2021-03-15] MEDS ORDERED: ONDANSETRON 4 MG/2 ML INJ IV PRN (19:31)
[2021-03-15] MEDS ORDERED: HYDROmorphone 1 MG/1 ML INJ IV PRN (19:31)
[2021-03-15] MEDS ORDERED: ALBUTEROL 2.5 MG/3 ML NEBU IH PRN (19:31)
[2021-03-15] MEDS ORDERED: HYDROcodone/Acetaminophen 7.5-325MG-15ML ORAL LIQD PO PRN (19:39)
[2021-03-15] MEDS ORDERED: NON-FORMULARY EACH (Calcium Acetate [Calcium Acetate] 667 MG Tablet) PO SCH (19:45)
[2021-03-15] MEDS ORDERED: DEXTROSE 50% IN WATER (25GM) 50 ML SYRINGE IV PRN (19:46)
[2021-03-15] MEDS: INSULIN REGULAR, HUMAN 100 UNITS/1 ML SUB-Q SCH ×2 (20:00→22:56)
[2021-03-15] MEDS ORDERED: SODIUM CHLORIDE 0.9% 500 ML 500 ML IV NR (21:11)
[2021-03-15] MEDS ORDERED: MAGNESIUM 250 MG PO SCH (22:00)
[2021-03-16 02:10] LABS: Hemoglobin 6.5 gm/dl (11.8-15.2)
[2021-03-16 03:05] LABS: Hematocrit 23.8 % (35.5-45.6)
[2021-03-16 03:20] LABS: Partial Thromboplastin Time 29.7 Sec. (24.2-36.6)
[2021-03-16 03:21] LABS: INR 1.07 (0.87-1.13)
[2021-03-16] MEDS: ACETAMINOPHEN 325 MG TAB PO PRN ×3 (05:27→16:16)
[2021-03-16] MEDS: MORPHINE 2 MG/1 ML INJ IV PRN ×2 (05:41→13:27)
[2021-03-16] MEDS: HEPARIN/ 0.45% NACL DRIP 25,000 UNIT/500 ML BAG IV SCH (06:51)
[2021-03-16] MEDS ORDERED: HEPARIN 10,000 UNITS/10 ML VIAL IV ONE (07:00)
[2021-03-16 08:14] LABS: Mean Corpuscular HGB Conc 34 % (32-34); Mean Corpuscular Volume 88 fl (84-94); Platelet Count 175 K/mm3 (140-440); Red Blood Count 2.01 M/mm3 (3.65-5.03); Red Cell Distribution Width 16.7 % (13.2-15.2)
[2021-03-16 08:17] LABS: Hematocrit 17.7 % (35.5-45.6)
[2021-03-16 08:36] LABS: Albumin 2.6 g/dL (3.9-5)
--- NOTE | 2021-03-16 09:31 | Event Note ---
Date: 03/16/21 Patient with a history of newly developed peripancreatic fluid collection along the lesser curvature the stomach. This may represent a pseudocyst. Not amenable to percutaneous drainage however, this would be amenable to transgastric drainage from GI. Uncertain if this service is offered here. Would consult GI for further evaluation.
[2021-03-16] MEDS ORDERED: SODIUM CHLORIDE 0.9% 500 ML 500 ML IV NR (09:51)
[2021-03-16] MEDS ORDERED: NON-FORMULARY EACH (Carvedilol 12.5 MG) PO SCH (10:00)
[2021-03-16] MEDS ORDERED: VITAMIN D3 2000 UNIT PO SCH (10:00)
[2021-03-16] MEDS: CALCIUM ACETATE 667 MG CAP PO SCH (10:42)
[2021-03-16] MEDS: MAGNESIUM OXIDE 400 MG TAB PO SCH (10:43)
[2021-03-16] MEDS: FAMOTIDINE 20 MG/2 ML INJ IV SCH ×3 (10:43→22:22)
[2021-03-16] MEDS: SCOPOLAMINE TRANSDERMAL PATCH 72 HR TD SCH (10:43)
[2021-03-16] MEDS: CHOLECALCIFEROL (VIT D3) 1000 UNIT (25 mcg) TAB PO SCH (10:43)
[2021-03-16] MEDS: carvediloL 12.5 MG TAB PO SCH (10:45)
[2021-03-16] MEDS: INSULIN REGULAR, HUMAN 100 UNITS/1 ML SUB-Q SCH ×3 (10:55→18:04)
[2021-03-16 12:24] LABS: Total Cells Counted 100
[2021-03-16 12:25] LABS: Anisocytosis 1+; Band Neutrophils # (Manual) 0.2 K/mm3; Hypochromasia 1+; Platelet Estimate Consistent w Auto; Tear Drop Cells 1+
--- NOTE | 2021-03-16 12:26 | Electrocardiograph Report ---
[facility] Test Date: 2021-03-15 Test Time: 12:37:11 Pat Name: ELISE PIMENTEL Department: Room: A264 1 Gender: M Thiokol Operator: VENICE : 1960 Requested By: NADJA LIVE Order Number: [id number] Reading MD: Herman Lambert Measurements Intervals [place] Rate: 91 P: 72 MS: 196 QRS: 57 QRSD: 82 T: 62 QT: 367 QTc: 441 Interpretive Statements Sinus rhythm Frequent PACs and PVCs Compared to ECG 12/28/2020 15:57:10 Sinus rhythm has replaced atrial fibrillation Electronically Signed On 03-16-2021 12:25:52 EDT by Herman Lambert
--- NOTE | 2021-03-16 14:53 | Consultation ---
History of Present Illness Consult date: 03/16/21 Reason for consult: abdominal pain - History of present illness History of present illness: 60-year-old male who presents to the emergency room yesterday from an LTAC facility who is well-known to me. Patient presented with a chief complaint of shortness of breath, he was found to have a right lung pulmonary embolism on CT of the chest and started on anticoagulation. Patient was also complaining of some abdominal pain of which a CT scan of the abdomen and pelvis showed a 6 cm fluid collection between the stomach and the pancreas suggestive of a pancreatic pseudocyst. There were no signs of small bowel obstruction, his right-sided HARIS abdominal drain, and gastric tube are in place. Today upon examination patient is coherent, but appears lethargic and much less talkative than usual. Patient was seen in the office by my partner Dr. Pollock last week where he was doing very well and as of 2 days ago plans were being mad e to discharge him from the LTAC facility to home with home health. Patient complains of intermittent nausea and vomiting at the facility, that he attributed to not liking the way the food tasted. Patient was having regular bowel movements, and his HARIS drain at last week's examination in the office with a small amount of purulent fluid. Of note this to be expected as this was placed at his last admission for drainage of a small leak at his colono-jejunal anastomosis. Past History Past Medical History: arrhythmia, anemia, heart failure, hypertension, renal failure. denies: hypothyroidism, liver disease, pulmonary embolism Past Surgical History: Other (Unable to appreciate secondary to poor historian did state he had an eye surgery here.) Social history: full code. denies: smoking, alcohol abuse, prescription drug abuse Family history: no significant family history Medications and Allergies Allergies Allergy/AdvReac Type Severity Reaction Status Date / Time No Known Allergies Allergy Verified 06/09/20 15:27 Home Medications Medication Instructions Recorded Confirmed Last Taken Type Albuterol Mdi (or & Nicu Only) 2 puff IH QID PRN #1 inhalation 04/01/17 03/15/21 10/31/20 09:00 Rx [ProAir HFA Inhaler] Calcium Acetate 667 mg PO DAILY 04/20/20 03/15/21 10/31/20 09:00 History Centrum Men's Tablet 1 tab PO DAILY 0803/15/21 10/31/20 09:00 History Cinacalcet 30 mg PO DAILY 04/20/20 03/15/21 10/31/20 09:00 History Dialyvite with Zinc Tablet 1 tab PO DAILY 04/20/20 03/15/21 10/31/20 09:00 History Magnesium 250 mg PO BID 04/20/20 03/15/21 10/31/20 17:00 History Triamcinolone 0.1% 1 1000units TRANSDERMA DAILY 04/20/20 03/15/21 10/31/20 09:00 History Vit B12/Folic Acid/B6/Aa No.15 1,000 mg PO DAILY 04/20/20 03/15/21 10/31/20 09:00 History amLODIPine 10 mg PO DAILY 06/09/20 03/15/21 10/31/20 09:00 History AtorvaSTATin 40 mg PO HS 11/01/20 03/15/21 10/31/20 21:00 History Benadryl 25 mg PO HS 11/01/20 03/15/21 10/31/20 21:00 History Diclofenac 1 applic TRANSDERMA QID 11/01/20 03/15/21 10/31/20 19:00 History Vitamin D3 2,000 units PO QDAY 11/01/20 03/15/21 10/31/20 09:00 History carvediloL 12.5 mg PO DAILY 11/01/20 03/15/21 10/31/20 09:00 History hydrALAZINE 100 mg PO TID 11/01/20 03/15/21 10/31/20 19:00 History Fluticasone Propionate 1 spray INTRANASAL DAILY #1 02/21/21 03/15/21 Unknown Rx HYDROcodone/ACETAMINOPHEN 15 ml PO Q6H PRN #150 ml 02/21/21 03/15/21 Unknown Rx [Hydrocodon-Acetamin 7.5-325/15] Insulin Glargine [Lantus VIAL] 5 units SUB-Q QHS #1 units 02/21/21 03/15/21 Unknown Rx Lispro Insulin [HumaLOG] See Protocol SUB-Q Q6HR #1 vial 02/21/21 03/15/21 Unknown Rx Scopolamine [Transderm-Scop] 1 each TD Q3D #10 patch 02/21/21 03/15/21 Unknown Rx cloNIDine-TTS PATCH [Catapres-Tts 0.2 mg TD We #30 patch 02/21/21 03/15/21 Unknown Rx 0.2mg Patch] Active Meds: Active Medications Acetaminophen (Acetaminophen 325 Mg Tab) 650 mg PO Q4H PRN PRN Reason: Pain MILD(1-3)/Fever >100.5/HULL Last Admin: 03/16/21 11:51 Dose: 650 mg Documented by: Hydrocodone Bitart/Acetaminophen (Hydrocodone/Acetaminophen 7.2-167ng-84ic Oral Liqd) 7.5 mg PO Q6H PRN PRN Reason: Pain , Severe (7-10) Albuterol (Albuterol 2.5 Mg/3 Ml Nebu) 2.5 mg IH Q4HRT PRN PRN Reason: Shortness Of Breath Calcium Acetate (Calcium Acetate 667 Mg Cap) 667 mg PO DAILY [facility] Last Admin: 03/16/21 10:42 Dose: 667 mg Documented by: Carvedilol (Carvedilol 12.5 Mg Tab) 12.5 mg PO DAILY [facility] Last Admin: 03/16/21 10:45 Dose: 12.5 mg Documented by: Cholecalciferol (Cholecalciferol (Vit D3) 1000 Unit (25 Mcg) Tab) 2,000 unit PO QDAY [facility] Last Admin: 03/16/21 10:43 Dose: 2,000 unit Documented by: Dextrose (Dextrose 50% In Water (25gm) 50 Ml Syringe) 50 ml IV Q30MIN PRN; Protocol PRN Reason: Hypoglycemia Famotidine (Famotidine 20 Mg/2 Ml Inj) 10 mg IV BID [facility] Last Admin: 03/16/21 10:56 Dose: Not Given Documented by: Heparin Sodium (Porcine) (Heparin 10,000 Units/10 Ml Vial) 3,200 unit 40 unit/kg (3200 unit) IV Q6H PRN PRN Reason: Anti-Xa Assay<0.1 units/ml Hydromorphone HCl (Hydromorphone 1 Mg/1 Ml Inj) 0.5 mg IV Q3H PRN PRN Reason: Pain , Severe (7-10) Sodium Chloride (Nacl 0.9%) 100 mls @ 999 mls/hr IV [place] PRN PRN Reason: Hypotension Sodium Chloride (Nacl 0.9% 500 Ml) 500 mls @ 0 mls/hr IV ONCE NR Stop: 03/17/21 23:59 Last Admin: 03/16/21 05:56 Dose: 50 mls/hr Documented by: Heparin Sodium/Sodium Chloride (Heparin/ 0.45% Nacl-25,000 Unit/500 Ml) 25,000 unit in 500 mls @ 23 mls/hr IV TITR [facility]; Protocol Last Admin: 03/16/21 06:51 Dose: 1,150 units/hr, 23 mls/hr Documented by: Sodium Chloride (Nacl 0.9% 500 Ml) 500 mls @ 0 mls/hr IV ONCE NR Stop: 03/16/21 23:59 Insulin Human Regular (Insulin Regular, Human 100 Units/1 Ml) 0 units SUB-Q Q6H [facility]; Protocol Last Admin: 03/16/21 10:56 Dose: Not Given Documented by: Magnesium Oxide (Magnesium Oxide 400 Mg Tab) 400 mg PO QDAY [facility] Last Admin: 03/16/21 10:43 Dose: 400 mg Documented by: Morphine Sulfate (Morphine 2 Mg/1 Ml Inj) 2 mg IV Q4H PRN PRN Reason: Pain, Moderate (4-6) Last Admin: 03/16/21 13:27 Dose: 2 mg Documented by: Ondansetron HCl (Ondansetron 4 Mg/2 Ml Inj) 4 mg IV Q8H PRN PRN Reason: Nausea And Vomiting Scopolamine (Scopolamine Transdermal Patch 72 Hr) 1 each TD Q3D [facility] Last Admin: 03/16/21 10:43 Dose: 1 each Documented by: Sodium Chloride (Sodium Chloride 0.9% 10 Ml Flush Syringe) 10 ml IV BID [facility] Last Admin: 03/16/21 10:56 Dose: Not Given Documented by: Sodium Chloride (Sodium Chloride 0.9% 10 Ml Flush Syringe) 10 ml IV PRN PRN PRN Reason: LINE FLUSH Review of Systems - Constitutional poor appetite - Cardiovascular chest pain - Respiratory cough, shortness of breath, dyspnea on exertion - Gastrointestinal abdominal pain, nausea, vomiting Exam Vital Signs Pulse Resp 98 H 18 03/15/21 11:03 03/15/21 11:03 - General physical appearance Positive: well developed, no distress, no pain, chronically ill - Cardiovascular Heart Sounds: Present: S1 & S2 - Extremities Extremities: no ischemia - Abdomen Abdomen: Present: soft, other (Right-sided HARIS drain with feculent drainage, 30 cc measures in 7 AM. Left G-tube in place with no drainage in the back.). Absent: tender, guarding - Neurologic Neurologic: alert and oriented to time, place and person Results - Labs 03/16/21 07:45 03/16/21 07:45 Abnormal lab results 03/15/21 03/15/21 03/15/21 Range/Units 15:55 21:30 23:21 RBC (3.65-5.03) M/mm3 Hgb 6.5 L (11.8-15.2) gm/dl Hct 23.8 L (35.5-45.6) % RDW (13.2-15.2) % Seg Neuts % (Manual) (40.0-70.0) % Lymphocytes % (Manual) (13.4-35.0) % Monocytes % (Manual) (0.0-7.3) % Nucleated RBC % (0.0-0.9) % Lymphocytes # (Manual) (1.2-5.4) K/mm3 BUN (9-20) mg/dL Creatinine (0.8-1.3) mg/dL Total Bilirubin (0.1-1.2) mg/dL AST (5-40) units/L ALT (7-56) units/L Alkaline Phosphatase (35-129) units/L Total Protein (6.3-8.2) g/dL Albumin (3.9-5) g/dL Hep B Core IgM Ab Reactive A (NonReactive) Crossmatch See Detail 03/16/21 03/16/21 Range/Units 07:45 07:45 RBC 2.01 L (3.65-5.03) M/mm3 Hgb 6.0 L (11.8-15.2) gm/dl Hct 17.7 L* D (35.5-45.6) % RDW 16.7 H (13.2-15.2) % Seg Neuts % (Manual) 73.0 H (40.0-70.0) % Lymphocytes % (Manual) 5.0 L (13.4-35.0) % Monocytes % (Manual) 15.0 H (0.0-7.3) % Nucleated RBC % 2.0 H (0.0-0.9) % Lymphocytes # (Manual) 0.2 L (1.2-5.4) K/mm3 BUN 41 H (9-20) mg/dL Creatinine 5.6 H (0.8-1.3) mg/dL Total Bilirubin 1.40 H (0.1-1.2) mg/dL AST 208 H (5-40) units/L ALT 348 H (7-56) units/L Alkaline Phosphatase 387 H (35-129) units/L Total Protein 6.1 L (6.3-8.2) g/dL Albumin 2.6 L (3.9-5) g/dL Hep B Core IgM Ab (NonReactive) Crossmatch Diabetes panel 03/16/21 Range/Units 07:45 Sodium 139 D (137-145) mmol/L Potassium 3.8 D (3.6-5.0) mmol/L Chloride 101.4 (98-107) mmol/L Carbon Dioxide 26 (22-30) mmol/L BUN 41 H (9-20) mg/dL Creatinine 5.6 H (0.8-1.3) mg/dL Glucose 93 (75-100) mg/dL Calcium 9.0 (8.4-10.2) mg/dL AST 208 H (5-40) units/L ALT 348 H (7-56) units/L Alkaline Phosphatase 387 H (35-129) units/L Total Protein 6.1 L (6.3-8.2) g/dL Albumin 2.6 L (3.9-5) g/dL Calcium panel 03/16/21 Range/Units 07:45 Calcium 9.0 (8.4-10.2) mg/dL Albumin 2.6 L (3.9-5) g/dL Pituitary panel 03/16/21 Range/Units 07:45 Sodium 139 D (137-145) mmol/L Potassium 3.8 D (3.6-5.0) mmol/L Chloride 101.4 (98-107) mmol/L Carbon Dioxide 26 (22-30) mmol/L BUN 41 H (9-20) mg/dL Creatinine 5.6 H (0.8-1.3) mg/dL Glucose 93 (75-100) mg/dL Calcium 9.0 (8.4-10.2) mg/dL Adrenal panel 03/16/21 Range/Units 07:45 Sodium 139 D (137-145) mmol/L Potassium 3.8 D (3.6-5.0) mmol/L Chloride 101.4 (98-107) mmol/L Carbon Dioxide 26 (22-30) mmol/L BUN 41 H (9-20) mg/dL Creatinine 5.6 H (0.8-1.3) mg/dL Glucose 93 (75-100) mg/dL Calcium 9.0 (8.4-10.2) mg/dL Total Bilirubin 1.40 H (0.1-1.2) mg/dL AST 208 H (5-40) units/L ALT 348 H (7-56) units/L Alkaline Phosphatase 387 H (35-129) units/L Total Protein 6.1 L (6.3-8.2) g/dL Albumin 2.6 L (3.9-5) g/dL - Imaging CT scan - abdomen: report reviewed, image reviewed CT scan - pelvis: report reviewed, image reviewed Assessment and Plan 60-year-old male, with extensive history of multiple abdominal surgeries, controlled anastomotic leak that is transitioning to a fistula, and new acute pulmonary embolism. Patient was febrile early in this admission, but has been afebrile over the last few hours. Etiology unclear however waiting for blood culture results as during his last admission patient had a dialysis catheter infection that led to bacteremia and had to be changed. Pulmonary embolism-supportive care and treat with anticoagulation Abdominal fluid collection consistent with pancreatic pseudocyst-no acute intervention planned at this time. Spoke to interventional radiology who said that the collection is not assessable externally. Will consult GI, for evaluation and follow-up and determine if he is amenable for endoscopic transgastric drainage of collection. I do not believe this service is offered at this facility and patient may need to get this done as an outpatient or transferred. With that said, assuming this is a pseudocyst, it may take a few weeks to get a mature wall of the cyst and allow for further interventional pascale gement. Anastomotic leak-we will continue TPN, will allow water and ice for the moment and monitor output. Would like to make sure that the output returns to minimal as it was prior to discharge at his last admission. We will not advance diet for the moment. Renal failure-dialysis per renal No acute general surgical intervention indicated at this time we will continue to follow.
[2021-03-16 15:19] LABS: Bilirubin,Urine NEG (Negative); Blood,Urine LG (Negative); Color,Urine Amber (Yellow); Mucus,Urine FEW /HPF; Urobilinogen,Urine < 2.0 mg/dL (<2.0)
[2021-03-16 15:20] LABS: Protein,Urine >500 mg/dL (Negative)
--- NOTE | 2021-03-16 16:01 | Progress Note ---
Assessment and Plan 60-year-old male resident of [facility] with past history of congestive heart failure, hypertension, end-stage renal disease and Crohn's disease with extensive history of multiple abdominal surgeries for Small bowel obstruction/necrotic bowel, controlled anastomotic leak that is transitioning to a fistula presents to the ED with a chief complaint of fever hypoxemia acute respiratory failure. Patient received CT scan in the a.m. for work-up of hypoxemia and was found to have right sided pulmonary embolism. Patient was admitted placed on heparin drip. Patient was also complaining of some abdominal pain of which a CT scan of the abdomen and pelvis showed a 6 cm fluid collection between the stomach and the pancreas suggestive of a pancreatic pseudocyst. A/P -- Altered mental status/acute encephalopathy, improved Multifactorial hypoxemia, uremia with the possibility of acute infectious process -Treat underlying etiology of pulmonary embolism with heparin drip -Optimize oxygenation -Aggressive support of anemia with transfusion with hemodialysis. -Patient will also need hemodialysis as well. --Abdominal pain likely due to pancreatic pseudocyst formation CT scan of the abdomen and pelvis showed a 6 cm fluid collection between the stomach and the pancreas suggestive of a pancreatic pseudocyst. Surgical consult as well GI consult for pancreatic pseudocyst -Provide supportive care with pain control -Above consultations -- Fever with severe sepsis Could be secondary to pulmonary embolism versus other underlying infection Continue to treat underlying cause, follow culture result --Severe sepsis, likely due to underlying fungemia/candidemia Continue empiric antibiotics, ID consulted; follow recommendation --Candidemia, blood cultures growing yeast Will order for fluconazole, will follow ID recommendation -- Pulmonary embolus IV heparin Supportive care, supplemental oxygenation -- ESRD (end stage renal disease) Patient on hemodialysis, renal consult has been ordered. --Hepatitis B core antibody positive Supportive care, monitor LFT ID and GI consult -- Elevated liver transaminase level Patient markedly elevated transaminase levels since last month. Differential diagnosis includes acute infection with hepatitis B. Patient has hepatitis B core antigen positive IgM. Will place ID consult. --History of ischemic bowel disease with necrotic small bowel s/p small bowel resection and primary anastomosis, requiring right hemicolectomy on 01/03/2021, and multiple other surgeries. Recent CT abdomen pelvis showed no bowel obstruction Patient with 2 intra-abdominal drainage: General surgery consulted Patient also on TPN: Consulted dietary -- Anemia of chronic disease No evidence of acute GI blood loss anemia. Will transfuse 2 units packed red blood cells. --DVT prophylaxis, patient on heparin drip -- Full code status The high probability of a clinically significant, sudden or life threatening deterioration of the [CVS, respiratory, GI] system(s) required my full and direct attention, intervention and personal management. The aggregate critical care time was [33] minutes. This time is in addition to time spent performing re ported procedures but includes the following: [x] Data Review and interpretation [x] Patient assessment and monitoring of vital signs [x] Documentation [x] Medication orders and management Daily clinical course: 03/16/21: Hemoglobin 6.0 this morning, continue to transfuse. Monitor H&H carefully while patient on heparin drip. Noted general surgery and IR recommend ation. Will consult GI for pancreatic pseudocyst. Continue to follow clinically with supportive care. Blood culture growing yeast we'll also add fluconazole. Subjective Date of service: 03/16/21 Interval history: Patient seen and examined. Medical records and medication list reviewed. No acute event overnight noted by the RN. Patient denies any chest pain, mental status stable. Discussed plan of care at bedside with patient and with RN. Objective - Exam Narrative Exam: GENERAL: well-developed -[place] male lying on bed appeared to be in no discomfort. HEENT: Normocephalic. Atraumatic. No conjunctival congestion or icterus. Patient has moist mucous membranes. NECK: Supple. Trachea midline. CHEST/LUNGS: Clear to auscultated bilaterally, breathing nonlabored. No wheezes crackles or rhonchi. HEART/CARDIOVASCULAR: Regular in rate and rhythm. S1 and S2 positive. ABDOMEN: Abdomen is soft, with 2 intra-abdominal drainage in place. Patient has normal bowel sounds. SKIN: There is no rash. Warm and dry. NEURO: No focal motor deficit. Follows command. MUSCULOSKELETAL: No joint effusion or tenderness. EXTRIMITY: No edema, no cyanosis or clubbing. PSYCH: Cooperative. - Constitutional Vitals: Vital Signs - 12hr 03/16/21 03/16/21 03/16/21 04:00 05:41 05:51 Temperature 101.3 F H Pulse Rate 88 94 H Pulse Rate [ 89 From Monitor] Respiratory 15 13 Rate Blood Pressure 133/67 133/67 O2 Sat by Pulse 98 99 Oximetry 03/16/21 03/16/21 03/16/21 06:00 06:11 06:21 Temperature Pulse Rate 91 H 94 H Pulse Rate [ From Monitor] Respiratory 13 10 L Rate Blood Pressure 128/58 128/58 128/58 O2 Sat by Pulse 79 L 97 93 Oximetry 03/16/21 03/16/21 03/16/21 06:31 06:41 06:51 Temperature Pulse Rate 92 H Pulse Rate [ From Monitor] Respiratory 12 Rate Blood Pressure 128/58 128/58 128/58 O2 Sat by Pulse 96 98 100 Oximetry 03/16/21 03/16/21 03/16/21 07:00 07:10 07:20 Temperature Pulse Rate 89 93 H 92 H Pulse Rate [ From Monitor] Respiratory 13 12 12 Rate Blood Pressure 132/60 132/60 O2 Sat by Pulse 98 91 86 Oximetry 03/16/21 03/16/21 03/16/21 07:30 07:40 07:50 Temperature Pulse Rate 86 92 H 90 Pulse Rate [ From Monitor] Respiratory 13 14 14 Rate Blood Pressure 132/60 132/60 132/60 O2 Sat by Pulse 80 L 88 92 Oximetry 03/16/21 03/16/21 03/16/21 08:00 08:10 08:20 Temperature 99.6 F Pulse Rate 86 85 86 Pulse Rate [ 85 From Monitor] Respiratory 14 14 13 Rate Blood Pressure 121/58 121/58 121/58 O2 Sat by Pulse 95 99 98 Oximetry 03/16/21 03/16/21 03/16/21 08:30 08:39 08:40 Temperature 97.9 F Pulse Rate 86 86 84 Pulse Rate [ From Monitor] Respiratory 11 L 12 14 Rate Blood Pressure 121/58 121/58 121/58 O2 Sat by Pulse 93 98 97 Oximetry 03/16/21 03/16/21 03/16/21 08:50 09:00 09:01 Temperature 98.5 F Pulse Rate 86 86 96 H Pulse Rate [ From Monitor] Respiratory 17 14 12 Rate Blood Pressure 115/58 117/60 117/60 O2 Sat by Pulse 96 96 96 Oximetry 03/16/21 03/16/21 03/16/21 09:02 09:10 09:16 Temperature 98.4 F Pulse Rate 84 85 Pulse Rate [ From Monitor] Respiratory 11 L 12 Rate Blood Pressure 117/60 110/59 O2 Sat by Pulse 97 97 Oximetry 03/16/21 03/16/2121 09:20 09:30 09:31 Temperature 98.4 F Pulse Rate 88 82 77 Pulse Rate [ From Monitor] Respiratory 12 12 12 Rate Blood Pressure 110/59 118/52 118/52 O2 Sat by Pulse 92 97 97 Oximetry 03/16/21 03/16/21 03/16/21 09:40 09:46 09:50 Temperature 98.5 F Pulse Rate 87 80 84 Pulse Rate [ From Monitor] Respiratory 15 12 13 Rate Blood Pressure 117/60 124/68 109/56 O2 Sat by Pulse 99 98 97 Oximetry 03/16/21 03/16/21 03/16/21 10:00 10:10 10:20 Temperature 98.6 F Pulse Rate 85 79 83 Pulse Rate [ From Monitor] Respiratory 15 14 16 Rate Blood Pressure 124/68 124/68 118/58 O2 Sat by Pulse 98 99 Oximetry 03/16/21 03/16/21 03/16/21 10:30 10:40 10:45 Temperature Pulse Rate 86 87 88 Pulse Rate [ From Monitor] Respiratory 17 18 Rate Blood Pressure 131/65 131/65 131/65 O2 Sat by Pulse 90 Oximetry 03/16/21 03/16/21 03/16/21 10:50 11:00 11:10 Temperature Pulse Rate 92 H 92 H 92 H Pulse Rate [ From Monitor] Respiratory 20 20 18 Rate Blood Pressure 149/68 173/101 O2 Sat by Pulse 91 88 92 Oximetry 03/16/21 03/16/21 03/16/21 11:20 11:30 11:40 Temperature Pulse Rate 92 H 91 H 87 Pulse Rate [ From Monitor] Respiratory 16 16 15 Rate Blood Pressure 173/101 165/85 165/85 O2 Sat by Pulse 96 97 98 Oximetry 03/16/21 03/16/21 03/16/21 11:42 11:50 12:00 Temperature 100 F H 99 F Pulse Rate 92 H 89 95 H Pulse Rate [ 98 H From Monitor] Respiratory 14 15 22 Rate Blood Pressure 165/85 148/83 151/80 O2 Sat by Pulse 98 97 95 Oximetry 03/16/21 03/16/21 03/16/21 12:10 12:15 12:20 Temperature 100.1 F H Pulse Rate 89 90 92 H Pulse Rate [ From Monitor] Respiratory 17 12 16 Rate Blood Pressure 151/80 154/78 154/78 O2 Sat by Pulse 96 96 95 Oximetry 03/16/21 03/16/21 03/16/21 12:30 12:40 12:45 Temperature 101 F H 100.5 F H Pulse Rate 90 88 88 Pulse Rate [ From Monitor] Respiratory 15 17 12 Rate Blood Pressure 132/75 132/75 144/69 O2 Sat by Pulse 94 96 96 Oximetry 03/16/21 03/16/21 03/16/21 12:50 13:00 13:07 Temperature 100.1 F H Pulse Rate 89 90 90 Pulse Rate [ From Monitor] Respiratory 14 14 12 Rate Blood Pressure 144/69 145/74 136/71 O2 Sat by Pulse 96 95 96 Oximetry 03/16/21 03/16/21 03/16/21 13:10 13:20 13:30 Temperature Pulse Rate 99 H 88 93 H Pulse Rate [ From Monitor] Respiratory 17 18 16 Rate Blood Pressure 136/71 136/62 132/60 O2 Sat by Pulse 96 96 93 Oximetry 03/16/21 03/16/21 13:40 13:50 Temperature Pulse Rate 122 H 90 Pulse Rate [ From Monitor] Respiratory 12 17 Rate Blood Pressure 132/60 129/59 O2 Sat by Pulse 95 93 Oximetry - Labs CBC & Chem 7: 03/21/21 03:23 03/22/21 04:18 Labs: Abnormal lab results 03/15/21 03/15/21 03/15/21 Range/Units 15:55 21:30 23:21 RBC (3.65-5.03) M/mm3 Hgb 6.5 L (11.8-15.2) gm/dl Hct 23.8 L (35.5-45.6) % RDW (13.2-15.2) % Seg Neuts % (Manual) (40.0-70.0) % Lymphocytes % (Manual) (13.4-35.0) % Monocytes % (Manual) (0.0-7.3) % Nucleated RBC % (0.0-0.9) % Lymphocytes # (Manual) (1.2-5.4) K/mm3 Heparin Anti-Xa Level (0.3-0.7) U.I./ml BUN (9-20) mg/dL Creatinine (0.8-1.3) mg/dL Total Bilirubin (0.1-1.2) mg/dL AST (5-40) units/L ALT (7-56) units/L Alkaline Phosphatase (35-129) units/L Total Protein (6.3-8.2) g/dL Albumin (3.9-5) g/dL Urine WBC (Auto) (0.0-6.0) /HPF Hep B Core IgM Ab Reactive A (NonReactive) Crossmatch See Detail 03/16/21 03/16/21 03/16/21 Range/Units 07:45 07:45 14:45 RBC 2.01 L (3.65-5.03) M/mm3 Hgb 6.0 L (11.8-15.2) gm/dl Hct 17.7 L* D (35.5-45.6) % RDW 16.7 H (13.2-15.2) % Seg Neuts % (Manual) 73.0 H (40.0-70.0) % Lymphocytes % (Manual) 5.0 L (13.4-35.0) % Monocytes % (Manual) 15.0 H (0.0-7.3) % Nucleated RBC % 2.0 H (0.0-0.9) % Lymphocytes # (Manual) 0.2 L (1.2-5.4) K/mm3 Heparin Anti-Xa Level (0.3-0.7) U.I./ml BUN 41 H (9-20) mg/dL Creatinine 5.6 H (0.8-1.3) mg/dL Total Bilirubin 1.40 H (0.1-1.2) mg/dL AST 208 H (5-40) units/L ALT 348 H (7-56) units/L Alkaline Phosphatase 387 H (35-129) units/L Total Protein 6.1 L (6.3-8.2) g/dL Albumin 2.6 L (3.9-5) g/dL Urine WBC (Auto) 8.0 H (0.0-6.0) /HPF Hep B Core IgM Ab (NonReactive) Crossmatch 03/16/21 Range/Units 14:50 RBC (3.65-5.03) M/mm3 Hgb (11.8-15.2) gm/dl Hct (35.5-45.6) % RDW (13.2-15.2) % Seg Neuts % (Manual) (40.0-70.0) % Lymphocytes % (Manual) (13.4-35.0) % Monocytes % (Manual) (0.0-7.3) % Nucleated RBC % (0.0-0.9) % Lymphocytes # (Manual) (1.2-5.4) K/mm3 Heparin Anti-Xa Level 0.19 L (0.3-0.7) U.I./ml BUN (9-20) mg/dL Creatinine (0.8-1.3) mg/dL Total Bilirubin (0.1-1.2) mg/dL AST (5-40) units/L ALT (7-56) units/L Alkaline Phosphatase (35-129) units/L Total Protein (6.3-8.2) g/dL Albumin (3.9-5) g/dL Urine WBC (Auto) (0.0-6.0) /HPF Hep B Core IgM Ab (NonReactive) Crossmatch
[2021-03-16 17:28] LABS: Hematocrit 23.4 % (35.5-45.6); Hemoglobin 7.7 gm/dl (11.8-15.2)
--- NOTE | 2021-03-16 17:34 | Progress Note ---
Assessment and Plan Assessment - End-stage renal disease on hemodialysis - Anemia of ESRD - Hyperphosphatemia - Fever - Hypoxia Recommendations - Continue HD MWF - Monitor labs and volume status daily and assess need for additional dialysis session - Transfuse for hgb < 7 - Hold epogen during acute process - Check P - Noted surgery evaluation, given extensive surgical h/o and drain in place - ESRD diet with 1.4 g/kg per day protein - Renally dose medication for creatinine clearance less than 15 cc/min Subjective Date of service: 03/16/21 Principal diagnosis: Hypoxia, fever Interval history: Resting in bed. No complications with dialysis. Objective - Exam Narrative Exam: General: No acute distress HEENT: Oral mucosa moist Neck: Supple, no JVD Chest: Clear to auscultation bilaterally Heart: RRR, S1 and S2, no pericardial rub Abdomen: Soft, nontender, no renal bruit Extremity: No peripheral cyanosis, edema Neurological: Somnolent but awakens to touch Dermatology: No skin rash Psych: No agitation Musculoskeletal: No joint effusion - Vital Signs Vital signs: Vital Signs - 12hr 03/16/21 03/16/21 03/16/21 05:41 05:51 06:00 Temperature Pulse Rate 88 94 H 91 H Pulse Rate [ From Monitor] Respiratory 15 13 13 Rate Blood Pressure 133/67 133/67 128/58 O2 Sat by Pulse 99 79 L Oximetry 03/16/21 03/16/21 03/16/21 06:11 06:21 06:31 Temperature Pulse Rate 94 H Pulse Rate [ From Monitor] Respiratory 10 L Rate Blood Pressure 128/58 128/58 128/58 O2 Sat by Pulse 97 93 96 Oximetry 03/16/21 03/16/21 03/16/21 06:41 06:51 07:00 Temperature Pulse Rate 92 H 89 Pulse Rate [ From Monitor] Respiratory 12 13 Rate Blood Pressure 128/58 128/58 132/60 O2 Sat by Pulse 98 100 98 Oximetry 03/16/21 03/16/21 03/16/21 07:10 07:20 07:30 Temperature Pulse Rate 93 H 92 H 86 Pulse Rate [ From Monitor] Respiratory 12 12 13 Rate Blood Pressure 132/60 132/60 O2 Sat by Pulse 91 86 80 L Oximetry 03/16/21 03/16/21 03/16/21 07:40 07:50 08:00 Temperature 99.6 F Pulse Rate 92 H 90 86 Pulse Rate [ 85 From Monitor] Respiratory 14 14 14 Rate Blood Pressure 132/60 132/60 121/58 O2 Sat by Pulse 88 92 95 Oximetry 03/16/21 03/16/21 03/16/21 08:10 08:20 08:30 Temperature Pulse Rate 85 86 86 Pulse Rate [ From Monitor] Respiratory 14 13 11 L Rate Blood Pressure 121/58 121/58 121/58 O2 Sat by Pulse 99 98 93 Oximetry 03/16/21 03/16/21 03/16/21 08:39 08:40 08:50 Temperature 97.9 F Pulse Rate 86 84 86 Pulse Rate [ From Monitor] Respiratory 12 14 17 Rate Blood Pressure 121/58 121/58 115/58 O2 Sat by Pulse 98 97 96 Oximetry 03/16/21 03/16/21 03/16/21 09:00 09:01 09:02 Temperature 98.5 F Pulse Rate 86 96 H Pulse Rate [ From Monitor] Respiratory 14 12 Rate Blood Pressure 117/60 117/60 O2 Sat by Pulse 96 96 97 Oximetry 03/16/21 03/16/21 03/16/21 09:10 09:16 09:20 Temperature 98.4 F Pulse Rate 84 85 88 Pulse Rate [ From Monitor] Respiratory 11 L 12 12 Rate Blood Pressure 117/60 110/59 110/59 O2 Sat by Pulse 97 92 Oximetry 03/16/21 03/16/21 03/16/21 09:30 09:31 09:40 Temperature 98.4 F Pulse Rate 82 77 87 Pulse Rate [ From Monitor] Respiratory 12 12 15 Rate Blood Pressure 118/52 118/52 117/60 O2 Sat by Pulse 97 97 99 Oximetry 03/16/21 03/16/21 03/16/21 09:46 09:50 10:00 Temperature 98.5 F 98.6 F Pulse Rate 80 84 85 Pulse Rate [ From Monitor] Respiratory 12 13 15 Rate Blood Pressure 124/68 109/56 124/68 O2 Sat by Pulse 98 97 98 Oximetry 03/16/21 03/16/21 03/16/21 10:10 10:20 10:30 Temperature Pulse Rate 79 83 86 Pulse Rate [ From Monitor] Respiratory 14 16 17 Rate Blood Pressure 124/68 118/58 131/65 O2 Sat by Pulse 99 Oximetry 03/16/21 03/16/21 03/16/21 10:40 10:45 10:50 Temperature Pulse Rate 87 88 92 H Pulse Rate [ From Monitor] Respiratory 18 20 Rate Blood Pressure 131/65 131/65 149/68 O2 Sat by Pulse 90 91 Oximetry 03/16/21 03/16/21 03/16/21 11:00 11:10 11:20 Temperature Pulse Rate 92 H 92 H 92 H Pulse Rate [ From Monitor] Respiratory 20 18 16 Rate Blood Pressure 173/101 173/101 O2 Sat by Pulse 88 92 96 Oximetry 03/16/21 03/16/21 03/16/21 11:30 11:40 11:42 Temperature 100 F H Pulse Rate 91 H 87 92 H Pulse Rate [ From Monitor] Respiratory 16 15 14 Rate Blood Pressure 165/85 165/85 165/85 O2 Sat by Pulse 97 98 98 Oximetry 03/16/21 03/16/21 03/16/21 11:50 12:00 12:10 Temperature 99 F Pulse Rate 89 95 H 89 Pulse Rate [ 98 H From Monitor] Respiratory 15 22 17 Rate Blood Pressure 148/83 151/80 151/80 O2 Sat by Pulse 97 95 96 Oximetry 03/16/21 03/16/21 03/16/21 12:15 12:20 12:30 Temperature 100.1 F H 101 F H Pulse Rate 90 92 H 90 Pulse Rate [ From Monitor] Respiratory 12 16 15 Rate Blood Pressure 154/78 154/78 132/75 O2 Sat by Pulse 96 95 94 Oximetry 03/16/21 03/16/21 03/16/21 12:40 12:45 12:50 Temperature 100.5 F H Pulse Rate 88 88 89 Pulse Rate [ From Monitor] Respiratory 17 12 14 Rate Blood Pressure 132/75 144/69 144/69 O2 Sat by Pulse 96 96 96 Oximetry 03/16/21 03/16/21 03/16/21 13:00 13:07 13:10 Temperature 100.1 F H Pulse Rate 90 90 99 H Pulse Rate [ From Monitor] Respiratory 14 12 17 Rate Blood Pressure 145/74 136/71 136/71 O2 Sat by Pulse 95 96 96 Oximetry 03/16/21 03/16/21 03/16/21 13:20 13:30 13:40 Temperature Pulse Rate 88 93 H 122 H Pulse Rate [ From Monitor] Respiratory 18 16 12 Rate Blood Pressure 136/62 132/60 132/60 O2 Sat by Pulse 96 93 95 Oximetry 03/16/21 03/16/21 03/16/21 13:50 14:00 14:10 Temperature 102.6 F H Pulse Rate 90 90 83 Pulse Rate [ From Monitor] Respiratory 17 15 16 Rate Blood Pressure 129/59 133/62 133/62 O2 Sat by Pulse 93 92 94 Oximetry 03/16/21 03/16/21 03/16/21 14:20 14:30 14:40 Temperature Pulse Rate 88 89 94 H Pulse Rate [ From Monitor] Respiratory 16 16 19 Rate Blood Pressure 145/65 134/56 134/56 O2 Sat by Pulse 94 94 93 Oximetry 03/16/21 03/16/21 03/16/21 14:50 15:00 15:10 Temperature Pulse Rate 91 H 91 H 88 Pulse Rate [ From Monitor] Respiratory 16 16 17 Rate Blood Pressure 133/63 141/66 141/66 O2 Sat by Pulse 95 93 95 Oximetry 03/16/21 03/16/21 03/16/21 15:20 15:30 15:40 Temperature Pulse Rate 88 88 92 H Pulse Rate [ From Monitor] Respiratory 17 15 17 Rate Blood Pressure 138/68 143/67 143/67 O2 Sat by Pulse 94 93 94 Oximetry 03/16/21 03/16/21 03/16/21 15:50 16:00 16:10 Temperature 101 F H Pulse Rate 91 H 90 91 H Pulse Rate [ 91 H From Monitor] Respiratory 16 18 18 Rate Blood Pressure 137/65 143/68 143/68 O2 Sat by Pulse 94 94 94 Oximetry 03/16/21 03/16/21 03/16/21 16:20 16:30 16:40 Temperature Pulse Rate 92 H 92 H 89 Pulse Rate [ From Monitor] Respiratory 16 17 19 Rate Blood Pressure 140/62 141/63 141/63 O2 Sat by Pulse 95 94 95 Oximetry 03/16/21 03/16/21 16:50 17:00 Temperature Pulse Rate 93 H 93 H Pulse Rate [ From Monitor] Respiratory 13 17 Rate Blood Pressure 142/70 136/67 O2 Sat by Pulse 94 93 Oximetry - Lab 03/16/21 16:43 03/16/21 07:45 Most recent lab results ABG pH 7.367 (7.320-7.450) 03/15/21 12:54 ABG O2 Saturation 89.9 (0-100) 03/15/21 12:54 Calcium 9.0 mg/dL (8.4-10.2) 03/16/21 07:45 Medications & Allergies - Medications Allergies/Adverse Reactions: Allergies No Known Allergies Allergy (Verified 06/09/20 15:27) Home Medications: Home Medications Medication Instructions Recorded Confirmed Last Taken Type Albuterol Mdi (or & Nicu Only) 2 puff IH QID PRN #1 inhalation 04/01/17 03/15/21 10/31/20 09:00 Rx [ProAir HFA Inhaler] Calcium Acetate 667 mg PO DAILY 04/20/20 03/15/21 10/31/20 09:00 History Centrum Men's Tablet 1 tab PO DAILY 04/20/20 03/15/21 10/31/20 09:00 History Cinacalcet 30 mg PO DAILY 04/20/20 03/15/21 10/31/20 09:00 History Dialyvite with Zinc Tablet 1 tab PO DAILY 04/20/20 03/15/21 10/31/20 09:00 History Magnesium 250 mg PO BID 04/20/20 03/15/21 10/31/20 17:00 History Triamcinolone 0.1% 1 1000units TRANSDERMA DAILY 04/20/20 03/15/21 10/31/20 09:00 History Vit B12/Folic Acid/B6/Aa No.15 1,000 mg PO DAILY 04/20/20 03/15/21 10/31/20 09:00 History amLODIPine 10 mg PO DAILY 06/09/20 03/15/21 10/31/20 09:00 History AtorvaSTATin 40 mg PO HS 11/01/20 03/15/21 10/31/20 21:00 History Benadryl 25 mg PO HS 11/01/20 03/15/21 10/31/20 21:00 History Diclofenac 1 applic TRANSDERMA QID 11/01/20 03/15/21 10/31/20 19:00 History Vitamin D3 2,000 units PO QDAY 11/01/20 03/15/21 10/31/20 09:00 History carvediloL 12.5 mg PO DAILY 11/01/20 03/15/21 10/31/20 09:00 History hydrALAZINE 100 mg PO TID 11/01/20 03/15/21 10/31/20 19:00 History Fluticasone Propionate 1 spray INTRANASAL DAILY #1 02/21/21 03/15/21 Unknown Rx HYDROcodone/ACETAMINOPHEN 15 ml PO Q6H PRN #150 ml 02/21/21 03/15/21 Unknown Rx [Hydrocodon-Acetamin 7.5-325/15] Insulin Glargine [Lantus VIAL] 5 units SUB-Q QHS #1 units 02/21/21 03/15/21 Unknown Rx Lispro Insulin [HumaLOG] See Protocol SUB-Q Q6HR #1 vial 02/21/21 03/15/21 Unknown Rx Scopolamine [Transderm-Scop] 1 each TD Q3D #10 patch 02/21/21 03/15/21 Unknown Rx cloNIDine-TTS PATCH [Catapres-Tts 0.2 mg TD We #30 patch 02/21/21 03/15/21 Unknown Rx 0.2mg Patch] Active Medications: Generic Name Dose Route Start Last Admin Trade Name Freq PRN Reason Stop Dose Admin Acetaminophen 650 mg 03/15/21 19:31 03/16/21 16:16 Acetaminophen 325 Mg Tab PO 650 mg Q4H PRN Administration Pain MILD(1-3)/Fever >100.5/HULL Hydrocodone Bitart/Acetaminophen 7.5 mg 03/15/21 19:39 Hydrocodone/Acetaminophen [id number] Oral Liqd PO Q6H PRN Pain , Severe (7-10) Albuterol 2.5 mg 03/15/21 19:31 Albuterol 2.5 Mg/3 Ml Nebu IH Q4HRT PRN Shortness Of Breath Calcium Acetate 667 mg 03/16/21 10:00 03/16/21 10:42 Calcium Acetate 667 Mg Cap PO 667 mg DAILY THOMAS Administration Carvedilol 12.5 mg 03/16/21 10:00 03/16/21 10:45 Carvedilol 12.5 Mg Tab PO 12.5 mg DAILY THOMAS Administration Cholecalciferol 2,000 unit 03/16/21 10:00 03/16/21 10:43 Cholecalciferol (Vit D3) 1000 Unit (25 Mcg) Tab PO 2,000 unit QDAY THOMAS Administration Dextrose 50 ml 03/15/21 19:46 Dextrose 50% In Water (25gm) 50 Ml Syringe IV Q30MIN PRN Hypoglycemia Protocol Famotidine 10 mg 03/15/21 22:00 03/16/21 10:56 Famotidine 20 Mg/2 Ml Inj IV Not Given BID [facility] Heparin Sodium (Porcine) 3,200 unit 03/15/21 17:16 Heparin 10,000 Units/10 Ml Vial 40 unit/kg (3200 unit) IV Q6H PRN Anti-Xa Assay<0.1 units/ml Hydromorphone HCl 0.5 mg 03/15/21 19:31 Hydromorphone 1 Mg/1 Ml Inj IV Q3H PRN Pain , Severe (7-10) Sodium Chloride 100 mls @ 999 mls/hr 03/15/21 16:00 Nacl 0.9% IV [place] PRN Hypotension Sodium Chloride 500 mls @ 0 mls/hr 03/15/21 21:11 03/16/21 05:56 Nacl 0.9% 500 Ml IV 03/17/21 23:59 50 mls/hr ONCE NR Administration As Directed Heparin Sodium/Sodium Chloride 25,000 unit in 500 mls @ 23 mls/hr 03/16/21 07:00 03/16/21 16:11 Heparin/ 0.45% Nacl-25,000 Unit/500 Ml IV 1,250 units/hr TITR THOMAS 25 mls/hr Titration Protocol 1,150 UNITS/HR Sodium Chloride 500 mls @ 0 mls/hr 03/16/21 09:51 Nacl 0.9% 500 Ml IV 03/16/21 23:59 ONCE NR As Directed Insulin Human Regular 0 units 03/15/21 20:00 03/16/21 10:56 Insulin Regular, Human 100 Units/1 Ml SUB-Q Not Given Q6H [facility] Protocol Magnesium Oxide 400 mg 03/16/21 10:00 03/16/21 10:43 Magnesium Oxide 400 Mg Tab PO 400 mg QDAY THOMAS Administration Morphine Sulfate 2 mg 03/15/21 19:31 03/16/21 13:27 Morphine 2 Mg/1 Ml Inj IV 2 mg Q4H PRN Administration Pain, Moderate (4-6) Ondansetron HCl 4 mg 03/15/21 19:31 Ondansetron 4 Mg/2 Ml Inj IV Q8H PRN Nausea And Vomiting Scopolamine 1 each 03/16/21 10:00 03/16/21 10:43 Scopolamine Transdermal Patch 72 Hr TD 1 each Q3D THOMAS Administration Sodium Chloride 10 ml 03/15/21 22:00 03/16/21 10:56 Sodium Chloride 0.9% 10 Ml Flush Syringe IV Not Given BID THOMAS Sodium Chloride 10 ml 03/15/21 20:31 Sodium Chloride 0.9% 10 Ml Flush Syringe IV PRN PRN LINE FLUSH
--- NOTE | 2021-03-16 18:05 | Consultation ---
History of Present Illness - Reason for Consult Consult date: 03/16/21 Hepatitis B serology positive Requesting physician: KARUNA FUNG - History of Present Illness 61-year-old male with history of ESRD initially on PD, CHF, , Crohn's disease, CHF, gastroesophageal reflux disease, status post prolonged hospital stay from 12/22/2020-02/21/2021 due to complicated small bowel obstruction with necrotic small bowel s/p small bowel resection and primary anastomosis, requiring right hemicolectomy on 01/03/2021, complicated with a Streptococcus bovis and Prevotella bacteremia on 12/22/2020, complicated with perforated anastomosis, s/p multiple surgeries readmitted on 03/15/2021 secondary to fever, hypoxia and altered mental status/somnolence. Patient also noted to be hypoxic at 78%. On arrival, temperature 103.2, HR 110, RR 24, O2 sat 97%, BP 120/70. Initial WBC 6.4. Hemoglobin 6.7. Platelets 190. Creatinine 9. AST 340, ALT 457, alk phos 408, total bili 1.4. Urinalysis with 8 WBCs and negative leukocytes. Hepatitis B core IgM positive. Hepatitis B surface antigen negative. Blood culture 03/15/2021 growing yeast in multiple bottles. CTA shows pulmonary embolism. CT abdomen shows newly develped fluid collection ?pancreatic pseudocyst 6.6x3.3x4.8 cm. also noted multiple air-fluid levels with dilated small bowel loops. Review of Systems: Unable to obtain due to altered mental status Past History Past Medical History: arrhythmia, anemia, heart failure, hypertension, renal failure. denies: hypothyroidism, liver disease, pulmonary embolism Past Surgical History: Other (Unable to appreciate secondary to poor historian did state he had an eye surgery here.) Social history: full code. denies: smoking, alcohol abuse, prescription drug abuse Family history: no significant family history Medications and Allergies Allergies Allergy/AdvReac Type Severity Reaction Status Date / Time No Known Allergies Allergy Verified 06/09/20 15:27 Home Medications Medication Instructions Recorded Confirmed Last Taken Type Albuterol Mdi (or & Nicu Only) 2 puff IH QID PRN #1 inhalation 04/01/17 03/15/21 10/31/20 09:00 Rx [ProAir HFA Inhaler] Calcium Acetate 667 mg PO DAILY 08/03/15/21 10/31/20 09:00 History Centrum Men's Tablet 1 tab PO DAILY 04/20/20 03/15/21 10/31/20 09:00 History Cinacalcet 30 mg PO DAILY 04/20/20 03/15/21 10/31/20 09:00 History Dialyvite with Zinc Tablet 1 tab PO DAILY 04/20/20 03/15/21 10/31/20 09:00 History Magnesium 250 mg PO BID 04/20/20 03/15/21 10/31/20 17:00 History Triamcinolone 0.1% 1 1000units TRANSDERMA DAILY 04/20/20 03/15/21 10/31/20 09:00 History Vit B12/Folic Acid/B6/Aa No.15 1,000 mg PO DAILY 04/20/20 03/15/21 10/31/20 09:00 History amLODIPine 10 mg PO DAILY 06/09/20 03/15/21 10/31/20 09:00 History AtorvaSTATin 40 mg PO HS 11/01/20 03/15/21 10/31/20 21:00 History Benadryl 25 mg PO HS 11/01/20 03/15/21 10/31/20 21:00 History Diclofenac 1 applic TRANSDERMA QID 11/01/20 03/15/21 10/31/20 19:00 History Vitamin D3 2,000 units PO QDAY 11/01/20 03/15/21 10/31/20 09:00 History carvediloL 12.5 mg PO DAILY 11/01/20 03/15/21 10/31/20 09:00 History hydrALAZINE 100 mg PO TID 11/01/20 03/15/21 10/31/20 19:00 History Fluticasone Propionate 1 spray INTRANASAL DAILY #1 02/21/21 03/15/21 Unknown Rx HYDROcodone/ACETAMINOPHEN 15 ml PO Q6H PRN #150 ml 02/21/21 03/15/21 Unknown Rx [Hydrocodon-Acetamin 7.5-325/15] Insulin Glargine [Lantus VIAL] 5 units SUB-Q QHS #1 units 02/21/21 03/15/21 Unknown Rx Lispro Insulin [HumaLOG] See Protocol SUB-Q Q6HR #1 vial 02/21/21 03/15/21 Unknown Rx Scopolamine [Transderm-Scop] 1 each TD Q3D #10 patch 02/21/21 03/15/21 Unknown Rx cloNIDine-TTS PATCH [Catapres-Tts 0.2 mg TD We #30 patch 02/21/21 03/15/21 Unknown Rx 0.2mg Patch] Active Meds: Active Medications Acetaminophen (Acetaminophen 325 Mg Tab) 650 mg PO Q4H PRN PRN Reason: Pain MILD(1-3)/Fever >100.5/HULL Last Admin: 03/16/21 16:16 Dose: 650 mg Documented by: Hydrocodone Bitart/Acetaminophen (Hydrocodone/Acetaminophen 7.0-677ts-[id number] Oral Liqd) 7.5 mg PO Q6H PRN PRN Reason: Pain , Severe (7-10) Albuterol (Albuterol 2.5 Mg/3 Ml Nebu) 2.5 mg IH Q4HRT PRN PRN Reason: Shortness Of Breath Calcium Acetate (Calcium Acetate 667 Mg Cap) 667 mg PO DAILY [facility] Last Admin: 03/16/21 10:42 Dose: 667 mg Documented by: Carvedilol (Carvedilol 12.5 Mg Tab) 12.5 mg PO DAILY [facility] Last Admin: 03/16/21 10:45 Dose: 12.5 mg Documented by: Cholecalciferol (Cholecalciferol (Vit D3) 1000 Unit (25 Mcg) Tab) 2,000 unit PO QDAY [facility] Last Admin: 03/16/21 10:43 Dose: 2,000 unit Documented by: Dextrose (Dextrose 50% In Water (25gm) 50 Ml Syringe) 50 ml IV Q30MIN PRN; Protocol PRN Reason: Hypoglycemia Famotidine (Famotidine 20 Mg/2 Ml Inj) 10 mg IV BID [facility] Last Admin: 03/16/21 10:56 Dose: Not Given Documented by: Heparin Sodium (Porcine) (Heparin 10,000 Units/10 Ml Vial) 3,200 unit 40 unit/kg (3200 unit) IV Q6H PRN PRN Reason: Anti-Xa Assay<0.1 units/ml Hydromorphone HCl (Hydromorphone 1 Mg/1 Ml Inj) 0.5 mg IV Q3H PRN PRN Reason: Pain , Severe (7-10) Sodium Chloride (Nacl 0.9%) 100 mls @ 999 mls/hr IV [place] PRN PRN Reason: Hypotension Sodium Chloride (Nacl 0.9% 500 Ml) 500 mls @ 0 mls/hr IV ONCE NR Stop: 03/17/21 23:59 Last Admin: 03/16/21 05:56 Dose: 50 mls/hr Documented by: Heparin Sodium/Sodium Chloride (Heparin/ 0.45% Nacl-25,000 Unit/500 Ml) 25,000 unit in 500 mls @ 23 mls/hr IV TITR [facility]; Protocol Last Titration: 03/16/21 16:11 Dose: 1,250 units/hr, 25 mls/hr Documented by: Sodium Chloride (Nacl 0.9% 500 Ml) 500 mls @ 0 mls/hr IV ONCE NR Stop: 03/16/21 23:59 Insulin Human Regular (Insulin Regular, Human 100 Units/1 Ml) 0 units SUB-Q Q6H [facility]; Protocol Last Admin: 03/16/21 18:04 Dose: Not Given Documented by: Magnesium Oxide (Magnesium Oxide 400 Mg Tab) 400 mg PO QDAY [facility] Last Admin: 03/16/21 10:43 Dose: 400 mg Documented by: Morphine Sulfate (Morphine 2 Mg/1 Ml Inj) 2 mg IV Q4H PRN PRN Reason: Pain, Moderate (4-6) Last Admin: 03/16/21 13:27 Dose: 2 mg Documented by: Ondansetron HCl (Ondansetron 4 Mg/2 Ml Inj) 4 mg IV Q8H PRN PRN Reason: Nausea And Vomiting Scopolamine (Scopolamine Transdermal Patch 72 Hr) 1 each TD Q3D [facility] Last Admin: 03/16/21 10:43 Dose: 1 each Documented by: Sodium Chloride (Sodium Chloride 0.9% 10 Ml Flush Syringe) 10 ml IV BID [facility] Last Admin: 03/16/21 10:56 Dose: Not Given Documented by: Sodium Chloride (Sodium Chloride 0.9% 10 Ml Flush Syringe) 10 ml IV PRN PRN PRN Reason: LINE FLUSH Physical Examination - Physical Exam Narrative exam: General appearance: Alert, debilitated, nonverbal Eyes: anicteric sclerae, moist conjunctivae; no lid-lag; PERRLA HENT: Normocephalic, Atraumatic; normal external ears, nares open, oropharynx protuberant tongue Neck: supple, tracheal midline, no JVD Lungs: Clear to auscultation bilaterally CV: RRR no murmur Abdomen: Soft, midline scar, drain in place x2 Extremities: no edema, no cyanosis Skin: No rash. Psych: no agitated Neuro: Confused - - Constitutional Vitals: Vital Signs Temp Pulse Resp BP Pulse Ox 101 F H 93 H 17 136/67 93 03/16/21 16:00 03/16/21 17:00 03/16/21 17:00 03/16/21 17:00 03/16/21 17:00 Temperature -Last 24 Hours Temperature 101 F Temperature 102.6 F Temperature 100.1 F Temperature 100.5 F Temperature 101 F Temperature 100.1 F Temperature 99 F Temperature 98.2 F Temperature 100 F Temperature 98.6 F Temperature 98.5 F Temperature 98.4 F Temperature 98.4 F Temperature 98.5 F Temperature 97.9 F Temperature 99.6 F Temperature 101.3 F Temperature 100.9 F Temperature 100.0 F Temperature 100.5 F Results - Labs CBC & Chem 7: 03/16/21 16:43 03/16/21 07:45 Labs: Abnormal lab results 03/15/21 03/15/21 03/16/21 Range/Units 21:30 23:21 07:45 RBC 2.01 L (3.65-5.03) M/mm3 Hgb 6.5 L 6.0 L (11.8-15.2) gm/dl Hct 23.8 L 17.7 L* D (35.5-45.6) % RDW 16.7 H (13.2-15.2) % Seg Neuts % (Manual) 73.0 H (40.0-70.0) % Lymphocytes % (Manual) 5.0 L (13.4-35.0) % Monocytes % (Manual) 15.0 H (0.0-7.3) % Nucleated RBC % 2.0 H (0.0-0.9) % Lymphocytes # (Manual) 0.2 L (1.2-5.4) K/mm3 Heparin Anti-Xa Level (0.3-0.7) U.I./ml BUN (9-20) mg/dL Creatinine (0.8-1.3) mg/dL Total Bilirubin (0.1-1.2) mg/dL AST (5-40) units/L ALT (7-56) units/L Alkaline Phosphatase (35-129) units/L Total Protein (6.3-8.2) g/dL Albumin (3.9-5) g/dL Urine WBC (Auto) (0.0-6.0) /HPF Crossmatch See Detail 03/16/21 03/16/21 03/16/21 Range/Units 07:45 14:45 14:50 RBC (3.65-5.03) M/mm3 Hgb (11.8-15.2) gm/dl Hct (35.5-45.6) % RDW (13.2-15.2) % Seg Neuts % (Manual) (40.0-70.0) % Lymphocytes % (Manual) (13.4-35.0) % Monocytes % (Manual) (0.0-7.3) % Nucleated RBC % (0.0-0.9) % Lymphocytes # (Manual) (1.2-5.4) K/mm3 Heparin Anti-Xa Level 0.19 L (0.3-0.7) U.I./ml BUN 41 H (9-20) mg/dL Creatinine 5.6 H (0.8-1.3) mg/dL Total Bilirubin 1.40 H (0.1-1.2) mg/dL AST 208 H (5-40) units/L ALT 348 H (7-56) units/L Alkaline Phosphatase 387 H (35-129) units/L Total Protein 6.1 L (6.3-8.2) g/dL Albumin 2.6 L (3.9-5) g/dL Urine WBC (Auto) 8.0 H (0.0-6.0) /HPF Crossmatch 03/16/21 Range/Units 16:43 RBC (3.65-5.03) M/mm3 Hgb 7.7 L (11.8-15.2) gm/dl Hct 23.4 L (35.5-45.6) % RDW (13.2-15.2) % Seg Neuts % (Manual) (40.0-70.0) % Lymphocytes % (Manual) (13.4-35.0) % Monocytes % (Manual) (0.0-7.3) % Nucleated RBC % (0.0-0.9) % Lymphocytes # (Manual) (1.2-5.4) K/mm3 Heparin Anti-Xa Level (0.3-0.7) U.I./ml BUN (9-20) mg/dL Creatinine (0.8-1.3) mg/dL Total Bilirubin (0.1-1.2) mg/dL AST (5-40) units/L ALT (7-56) units/L Alkaline Phosphatase (35-129) units/L Total Protein (6.3-8.2) g/dL Albumin (3.9-5) g/dL Urine WBC (Auto) (0.0-6.0) /HPF Crossmatch Assessment and Plan -Cultures: Blood culture 03/15/2021 growing yeast in multiple bottles. Assessment: 61-year-old male with history of ESRD initially on PD, CHF, , Crohn's disease, CHF, gastroesophageal reflux disease, status post prolonged hospital complicated stay from 12/22/2020-02/21/2021 due to complicated small bowel obstruction with necrotic small bowel s/p small bowel resection and primary anastomosis, requiring right hemicolectomy on 01/03/2021, complicated with a Streptococcus bovis and Prevotella bacteremia on 12/22/2020, complicated with perforated anastomosis, s/p multiple surgeries readmitted on 03/15/2021 secondary to fever, hypoxia and altered mental status/somnolence: #Severe sepsis: Present on admission with high fever, tachycardia, elevated LFTs; likely secondary to candidemia. #Candidemia: Yeast present in several bottles of blood cultures. Likely due to intra-abdominal collection. #Pancreatic pseudocyst: CT with 6.6 x 3.3 x 4.8 cm pseudocyst likely source of candidemia. #Complicated small bowel obstruction: with necrotic small bowel s/p small bowel resection and primary anastomosis, requiring right hemicolectomy on 01/03/2021, and multiple other surgeries. #Acute pulmonary embolism: On heparin drip. #Elevated LFTs: Likely secondary to sepsis/pancreatic pseudocyst more than acute hepatitis B infection. Patient noted to have hepatitis B core IgM positive ? False positive versus acute hepatitis B less likely. #ESRD on hemodialysis. Renally adjust antibiotics. #Acute encephalopathy: Likely secondary to sepsis. Recommendations: -Start micafungin 100 mg IV daily -Repeat blood cultures tomorrow -Follow initial blood cultures identification and SHIV -Obtain transthoracic echo to rule out endocarditis -If patient has any retained central /HD lines please remove as soon as possible -Agree with GI medicine evaluation for pancreatic pseudocyst, consider drainage for Gram stain and cultures -Check lipase and CRP -Check hepatitis B DNA PCR Very guarded prognosis Will follow. Millicent Quintana MD Infectious Diseases [employer] [facility] ([facility]) M [phone] O [phone]
[2021-03-16] MEDS: MICAFUNGIN 100 MG in SODIUM CHLORIDE 0.9% 100 ML IV SCH (19:27)
[2021-03-16 19:29] LABS: C-Reactive Protein 14.9 mg/dL (0.00-1.30)
[2021-03-16 20:00] LABS: Calcium 8.5 mg/dL (8.4-10.2)
[2021-03-16] MEDS ORDERED: FLUCONAZOLE/NS 100 MG/50 ML 100 MG/50 ML BAG IV SCH (20:00)
[2021-03-16] MEDS ORDERED: ALTEPLASE 2 MG INJ IV ONE (21:20)
[2021-03-16] MEDS ORDERED: WATER FOR INJ Sterile (PF) 10 ML ONE (22:28)
[2021-03-17] MEDS: ACETAMINOPHEN 325 MG TAB PO PRN ×2 (00:13→20:29)
[2021-03-17] MEDS: HEPARIN/ 0.45% NACL DRIP 25,000 UNIT/500 ML BAG IV SCH ×2 (02:41→20:54)
[2021-03-17 06:17] LABS: Hematocrit 22.5 % (35.5-45.6); Hemoglobin 7.6 gm/dl (11.8-15.2); Mean Corpuscular HGB Conc 34 % (32-34); Mean Corpuscular Volume 92 fl (84-94); Platelet Count 198 K/mm3 (140-440); Red Blood Count 2.44 M/mm3 (3.65-5.03); Red Cell Distribution Width 16.4 % (13.2-15.2)
[2021-03-17] MEDS: INSULIN REGULAR, HUMAN 100 UNITS/1 ML SUB-Q SCH ×3 (06:30→13:33)
[2021-03-17 06:40] LABS: Calcium 9.2 mg/dL (8.4-10.2)
[2021-03-17 07:28] LABS: Anisocytosis Few; Band Neutrophils # (Manual) 0.2 K/mm3; Giant Platelets Rare; Hypochromasia Few; Platelet Estimate Consistent w Auto; Total Cells Counted 100
[2021-03-17] MEDS: FAMOTIDINE 20 MG/2 ML INJ IV SCH ×2 (09:18→22:45)
[2021-03-17] MEDS: CHOLECALCIFEROL (VIT D3) 1000 UNIT (25 mcg) TAB PO SCH (09:18)
[2021-03-17] MEDS: carvediloL 12.5 MG TAB PO SCH (09:18)
[2021-03-17] MEDS: MAGNESIUM OXIDE 400 MG TAB PO SCH (09:18)
[2021-03-17] MEDS: CALCIUM ACETATE 667 MG CAP PO SCH (09:18)
--- NOTE | 2021-03-17 13:42 | Event Note ---
Date: 03/17/21 GI consulted for evaluation of intragastric drainage of pancreatic pseudocyst (possibly infected) - unable to perform this procedure here. would need to go to tertiary care center (likely [place]) if this is needed/indicated. please call back as needed or changes in clinical course.
--- NOTE | 2021-03-17 13:57 | Progress Note ---
Assessment and Plan 60-year-old male, with extensive history of multiple abdominal surgeries, controlled anastomotic leak that is transitioning to a fistula, and new acute pulmonary embolism. Stable and afebrile. Sepsis work up - 1/2 blood culture bottles with growth preliminarily. No speciation as yet Pulmonary embolism-supportive care and treat with anticoagulation Abdominal fluid collection consistent with pancreatic pseudocyst-no acute intervention planned at this time. Spoke to interventional radiology who said that the collection is not assessable externally. Will consult GI, for evaluation and follow-up and determine if he is amenable for endoscopic transgastric drainage of collection. I do not believe this service is offered at this facility and patient may need to get this done as an outpatient or transferred. With that said, assuming this is a pseudocyst, it may take a few weeks to get a mature wall of the cyst and allow for further interventional management. Anastomotic leak-we will continue TPN, will allow water and ice for the moment and monitor output. Would like to make sure that the output returns to minimal as it was prior to discharge at his last admission. We will not advance diet for the moment. We will begin octreotide to help decrease output. Renal failure-dialysis per renal No acute general surgical intervention indicated at this time we will continue to follow. Subjective Date of service: 03/17/21 Narrative: No acute events overnight. Patient was on hemodialysis at examination today. Patient complaining of some pain around his drain site but not around rest of the abdomen. Objective Vital Signs - 12hr 03/17/21 03/17/21 03/17/21 01:20 01:30 01:40 Temperature Pulse Rate 89 89 83 Pulse Rate [ From Monitor] Respiratory 15 13 13 Rate Blood Pressure 126/65 126/65 126/65 O2 Sat by Pulse 98 93 91 Oximetry O2 Sat by Pulse Oximetry [ Anterior Bilateral Throughout] 03/17/21 03/17/21 03/17/21 01:50 02:00 02:10 Temperature Pulse Rate 81 79 76 Pulse Rate [ From Monitor] Respiratory 15 14 15 Rate Blood Pressure 126/65 126/54 126/54 O2 Sat by Pulse 95 93 91 Oximetry O2 Sat by Pulse Oximetry [ Anterior Bilateral Throughout] 03/17/21 03/17/21 03/17/21 02:20 02:30 02:40 Temperature Pulse Rate 80 76 75 Pulse Rate [ From Monitor] Respiratory 18 17 15 Rate Blood Pressure 126/54 126/54 126/54 O2 Sat by Pulse 90 93 93 Oximetry O2 Sat by Pulse Oximetry [ Anterior Bilateral Throughout] 03/17/21 03/17/21 03/17/21 02:50 03:00 03:10 Temperature Pulse Rate 81 77 80 Pulse Rate [ From Monitor] Respiratory 18 12 13 Rate Blood Pressure 126/54 128/62 128/62 O2 Sat by Pulse 91 92 94 Oximetry O2 Sat by Pulse Oximetry [ Anterior Bilateral Throughout] 03/17/21 03/17/21 03/17/21 03:20 03:30 03:36 Temperature 98.4 F Pulse Rate 77 83 Pulse Rate [ From Monitor] Respiratory 12 18 Rate Blood Pressure 128/62 128/62 O2 Sat by Pulse 89 94 Oximetry O2 Sat by Pulse Oximetry [ Anterior Bilateral Throughout] 03/17/21 03/17/21 03/17/21 03:40 03:50 04:00 Temperature Pulse Rate 78 77 78 Pulse Rate [ 80 From Monitor] Respiratory 17 16 16 Rate Blood Pressure 128/62 128/62 120/64 O2 Sat by Pulse 93 92 94 Oximetry O2 Sat by Pulse Oximetry [ Anterior Bilateral Throughout] 03/17/21 03/17/21 03/17/21 04:10 04:20 04:30 Temperature Pulse Rate 80 79 79 Pulse Rate [ From Monitor] Respiratory 22 21 16 Rate Blood Pressure 120/64 120/64 120/64 O2 Sat by Pulse 93 92 92 Oximetry O2 Sat by Pulse Oximetry [ Anterior Bilateral Throughout] 03/17/21 03/17/21 03/17/21 04:40 04:50 05:00 Temperature Pulse Rate 78 80 80 Pulse Rate [ From Monitor] Respiratory 15 16 17 Rate Blood Pressure 120/64 120/64 131/69 O2 Sat by Pulse 92 94 91 Oximetry O2 Sat by Pulse Oximetry [ Anterior Bilateral Throughout] 03/17/21 03/17/21 03/17/21 05:10 05:20 05:30 Temperature Pulse Rate 83 84 92 H Pulse Rate [ From Monitor] Respiratory 20 17 19 Rate Blood Pressure 131/69 131/69 131/69 O2 Sat by Pulse 93 92 Oximetry O2 Sat by Pulse Oximetry [ Anterior Bilateral Throughout] 03/17/21 03/17/21 03/17/21 05:40 05:50 06:00 Temperature Pulse Rate 78 80 80 Pulse Rate [ From Monitor] Respiratory 17 15 15 Rate Blood Pressure 131/69 131/69 162/84 O2 Sat by Pulse 97 99 98 Oximetry O2 Sat by Pulse Oximetry [ Anterior Bilateral Throughout] 03/17/21 03/17/21 03/17/21 06:10 06:20 06:30 Temperature Pulse Rate 81 81 80 Pulse Rate [ From Monitor] Respiratory 17 15 14 Rate Blood Pressure 162/84 162/84 162/84 O2 Sat by Pulse 99 100 100 Oximetry O2 Sat by Pulse Oximetry [ Anterior Bilateral Throughout] 03/17/21 03/17/21 03/17/21 06:40 06:50 07:00 Temperature Pulse Rate 79 78 79 Pulse Rate [ From Monitor] Respiratory 14 12 14 Rate Blood Pressure 162/84 162/84 153/80 O2 Sat by Pulse 100 98 99 Oximetry O2 Sat by Pulse Oximetry [ Anterior Bilateral Throughout] 03/17/21 03/17/21 03/17/21 07:10 07:20 07:30 Temperature Pulse Rate 79 78 78 Pulse Rate [ From Monitor] Respiratory 16 17 16 Rate Blood Pressure 156/91 156/91 156/91 O2 Sat by Pulse 99 98 100 Oximetry O2 Sat by Pulse Oximetry [ Anterior Bilateral Throughout] 03/17/21 03/17/21 03/17/21 07:40 07:50 07:56 Temperature Pulse Rate 80 79 Pulse Rate [ From Monitor] Respiratory 16 15 Rate Blood Pressure 156/91 156/91 O2 Sat by Pulse 98 98 99 Oximetry O2 Sat by Pulse Oximetry [ Anterior Bilateral Throughout] 03/17/21 03/17/21 03/17/21 08:00 08:10 08:20 Temperature Pulse Rate 81 81 81 Pulse Rate [ 80 From Monitor] Respiratory 18 16 14 Rate Blood Pressure 153/80 165/89 O2 Sat by Pulse 99 100 100 Oximetry O2 Sat by Pulse Oximetry [ Anterior Bilateral Throughout] 03/17/21 03/17/21 03/17/21 08:30 08:40 08:50 Temperature Pulse Rate 80 81 80 Pulse Rate [ From Monitor] Respiratory 13 14 14 Rate Blood Pressure 165/89 165/89 165/89 O2 Sat by Pulse 100 100 100 Oximetry O2 Sat by Pulse Oximetry [ Anterior Bilateral Throughout] 03/17/21 03/17/21 03/17/21 09:00 09:10 09:20 Temperature Pulse Rate 81 83 83 Pulse Rate [ From Monitor] Respiratory 14 15 20 Rate Blood Pressure 138/66 138/66 138/66 O2 Sat by Pulse 98 99 99 Oximetry O2 Sat by Pulse Oximetry [ Anterior Bilateral Throughout] 03/17/21 03/17/21 03/17/21 09:30 09:40 09:45 Temperature 100.2 F H Pulse Rate 80 79 77 Pulse Rate [ From Monitor] Respiratory 15 15 Rate Blood Pressure 138/66 138/66 162/92 O2 Sat by Pulse 99 100 Oximetry O2 Sat by Pulse 98 Oximetry [ Anterior Bilateral Throughout] 03/17/21 03/17/21 03/17/21 09:50 10:00 10:10 Temperature Pulse Rate 79 81 80 Pulse Rate [ From Monitor] Respiratory 15 17 15 Rate Blood Pressure 162/92 154/91 154/91 O2 Sat by Pulse 98 100 98 Oximetry O2 Sat by Pulse Oximetry [ Anterior Bilateral Throughout] 03/17/21 03/17/21 03/17/21 10:15 10:20 10:30 Temperature Pulse Rate 81 82 82 Pulse Rate [ From Monitor] Respiratory 16 23 Rate Blood Pressure 156/90 156/90 157/82 O2 Sat by Pulse 99 99 Oximetry O2 Sat by Pulse Oximetry [ Anterior Bilateral Throughout] 03/17/21 03/17/21 03/17/21 10:40 10:45 11:00 Temperature Pulse Rate 81 82 81 Pulse Rate [ From Monitor] Respiratory 16 Rate Blood Pressure 157/82 153/89 148/82 O2 Sat by Pulse 98 Oximetry O2 Sat by Pulse Oximetry [ Anterior Bilateral Throughout] 03/17/21 03/17/21 03/17/21 11:15 11:30 11:45 Temperature Pulse Rate 79 84 81 Pulse Rate [ From Monitor] Respiratory Rate Blood Pressure 146/92 152/91 145/88 O2 Sat by Pulse Oximetry O2 Sat by Pulse Oximetry [ Anterior Bilateral Throughout] 03/17/21 03/17/21 03/17/21 12:00 12:15 12:30 Temperature 97.8 F Pulse Rate 79 80 85 Pulse Rate [ From Monitor] Respiratory Rate Blood Pressure 135/81 130/74 132/72 O2 Sat by Pulse Oximetry O2 Sat by Pulse Oximetry [ Anterior Bilateral Throughout] 03/17/21 12:45 Temperature Pulse Rate 78 Pulse Rate [ From Monitor] Respiratory Rate Blood Pressure 145/82 O2 Sat by Pulse Oximetry O2 Sat by Pulse Oximetry [ Anterior Bilateral Throughout] - General physical appearance well developed, no distress, no pain, chronically ill - Respiratory normal expansion, normal respiratory effort - Abdomen soft, other (Tender around HARIS drain site. HARIS drain with feculent drainage, approximately 40 cc measured last 24 hours. G-tube in place.) - Labs 03/17/21 05:57 03/17/21 05:57 Diabetes panel 03/16/21 03/17/21 Range/Units 09:53 05:57 Sodium 138 138 (137-145) mmol/L Potassium 4.4 4.1 (3.6-5.0) mmol/L Chloride 102.4 100.7 (98-107) mmol/L Carbon Dioxide 17 L D 23 (22-30) mmol/L BUN 47 H 58 H (9-20) mg/dL Creatinine 7.1 H 7.8 H (0.8-1.3) mg/dL Glucose 90 80 (75-100) mg/dL Calcium 8.5 9.2 (8.4-10.2) mg/dL Calcium panel 03/16/21 03/17/21 Range/Units 09:53 05:57 Calcium 8.5 9.2 (8.4-10.2) mg/dL Phosphorus 3.30 (2.5-4.5) mg/dL Pituitary panel 03/16/21 03/17/21 Range/Units 09:53 05:57 Sodium 138 138 (137-145) mmol/L Potassium 4.4 4.1 (3.6-5.0) mmol/L Chloride 102.4 100.7 (98-107) mmol/L Carbon Dioxide 17 L D 23 (22-30) mmol/L BUN 47 H 58 H (9-20) mg/dL Creatinine 7.1 H 7.8 H (0.8-1.3) mg/dL Glucose 90 80 (75-100) mg/dL Calcium 8.5 9.2 (8.4-10.2) mg/dL Adrenal panel 03/16/21 03/17/21 Range/Units 09:53 05:57 Sodium 138 138 (137-145) mmol/L Potassium 4.4 4.1 (3.6-5.0) mmol/L Chloride 102.4 100.7 (98-107) mmol/L Carbon Dioxide 17 L D 23 (22-30) mmol/L BUN 47 H 58 H (9-20) mg/dL Creatinine 7.1 H 7.8 H (0.8-1.3) mg/dL Glucose 90 80 (75-100) mg/dL Calcium 8.5 9.2 (8.4-10.2) mg/dL
[2021-03-17] MEDS: OCTREOTIDE 50 MCG in SODIUM CHLORIDE 0.9% 50 ML IV SCH ×2 (14:34→22:24)
--- NOTE | 2021-03-17 14:47 | Progress Note ---
Assessment and Plan 60-year-old male resident of [facility] with past history of congestive heart failure, hypertension, end-stage renal disease and Crohn's disease with extensive history of multiple abdominal surgeries for Small bowel obstruction/necrotic bowel, controlled anastomotic leak that is transitioning to a fistula presents to the ED with a chief complaint of fever hypoxemia acute respiratory failure. Patient received CT scan in the a.m. for work-up of hypoxemia and was found to have right sided pulmonary embolism. Patient was admitted placed on heparin drip. Patient was also complaining of some abdominal pain of which a CT scan of the abdomen and pelvis showed a 6 cm fluid collection between the stomach and the pancreas suggestive of a pancreatic pseudocyst. A/P -- Altered mental status/acute encephalopathy, improved Multifactorial hypoxemia, uremia with the possibility of acute infectious process -Treat underlying etiology of pulmonary embolism with heparin drip -Optimize oxygenation -Aggressive support of anemia with transfusion with hemodialysis. -Patient will also need hemodialysis as well. --Abdominal pain likely due to pancreatic pseudocyst formation CT scan of the abdomen and pelvis showed a 6 cm fluid collection between the stomach and the pancreas suggestive of a pancreatic pseudocyst. Surgical consult as well GI consult for pancreatic pseudocyst -Provide supportive care with pain control -Above consultations -- Fever with severe sepsis Could be secondary to pulmonary embolism versus other underlying infection Continue to treat underlying cause, follow culture result --Severe sepsis, likely due to underlying fungemia/candidemia Continue empiric antibiotics, ID consulted; follow recommendation --Candidemia, blood cultures growing yeast Started on micafungin, will follow ID recommendation -- Pulmonary embolus IV heparin Supportive care, supplemental oxygenation -- ESRD (end stage renal disease) Patient on hemodialysis, renal consult has been ordered. --Hepatitis B core antibody positive Supportive care, monitor LFT ID and GI consult -- Elevated liver transaminase level Patient markedly elevated transaminase levels since last month. Differential diagnosis includes acute infection with hepatitis B. Patient has hepatitis B core antigen positive IgM. Will place ID consult. --History of ischemic bowel disease with necrotic small bowel s/p small bowel resection and primary anastomosis, requiring right hemicolectomy on 01/03/2021, and multiple other surgeries. Recent CT abdomen pelvis showed no bowel obstruction Patient with 2 intra-abdominal drainage: General surgery consulted Patient also on TPN: Consulted dietary -- Anemia of chronic disease No evidence of acute GI blood loss anemia. Will transfuse 2 units packed red blood cells. --DVT prophylaxis, patient on heparin drip -- Full code status The high probability of a clinically significant, sudden or life threatening deterioration of the [CVS, respiratory, GI] system(s) required my full and direct attention, intervention and personal management. The aggregate critical care time was [33] minutes. This time is in addition to time spent performing reported procedures but includes the following: [x] Data Review and interpretation [x] Patient assessment and monitoring of vital signs [x] Documentation [x] Medication orders and management Daily clinical course: 03/16/21: Hemoglobin 6.0 this morning, continue to transfuse. Monitor H&H carefully while patient on heparin drip. Noted general surgery and IR recommendation. Will consult GI for pancreatic pseudocyst. Continue to follow clinically with supportive care. Blood culture growing yeast we'll also add fluconazole. 03/17/21: Patient receiving hemodialysis, BP appears to be stable, continue empiric antibiotic. Follow ID and GI recommendation. Per general surgery no intervention required for pancreatic pseudocyst. If patient condition return to [facility] may need to transfer to tertiary center for possible drainage. Subjective Date of service: 03/17/21 Principal diagnosis: Hypoxia, fever Interval history: Patient seen and examined. Medical records and medication list reviewed. No acute event overnight noted by the RN. Patient denies any chest pain, mental status stable. Discussed plan of care at bedside with patient and with RN. Objective - Exam Narrative Exam: GENERAL: well-developed -Citizen Of [place] male lying on bed appeared to be in no discomfort. HEENT: Normocephalic. Atraumatic. No conjunctival congestion or icterus. Patient has moist mucous membranes. NECK: Supple. Trachea midline. CHEST/LUNGS: Clear to auscultated bilaterally, breathing nonlabored. No wheezes crackles or rhonchi. HEART/CARDIOVASCULAR: Regular in rate and rhythm. S1 and S2 positive. ABDOMEN: Abdomen is soft, with 2 intra-abdominal drainage in place. Patient has normal bowel sounds. SKIN: There is no rash. Warm and dry. NEURO: No focal motor deficit. Follows command. MUSCULOSKELETAL: No joint effusion or tenderness. EXTRIMITY: No edema, no cyanosis or clubbing. PSYCH: Cooperative. - Constitutional Vitals: Vital Signs - 12hr 03/17/21 03/17/21 03/17/21 02:50 03:00 03:10 Temperature Pulse Rate 81 77 80 Pulse Rate [ From Monitor] Respiratory 18 12 13 Rate Blood Pressure 126/54 128/62 128/62 O2 Sat by Pulse 91 92 94 Oximetry O2 Sat by Pulse Oximetry [ Anterior Bilateral Throughout] 03/17/21 03/17/21 03/17/21 03:20 03:30 03:36 Temperature 98.4 F Pulse Rate 77 83 Pulse Rate [ From Monitor] Respiratory 12 18 Rate Blood Pressure 128/62 128/62 O2 Sat by Pulse 89 94 Oximetry O2 Sat by Pulse Oximetry [ Anterior Bilateral Throughout] 03/17/21 03/17/21 03/17/21 03:40 03:50 04:00 Temperature Pulse Rate 78 77 78 Pulse Rate [ 80 From Monitor] Respiratory 17 16 16 Rate Blood Pressure 128/62 128/62 120/64 O2 Sat by Pulse 93 92 94 Oximetry O2 Sat by Pulse Oximetry [ Anterior Bilateral Throughout] 03/17/21 03/17/21 03/17/21 04:10 04:20 04:30 Temperature Pulse Rate 80 79 79 Pulse Rate [ From Monitor] Respiratory 22 21 16 Rate Blood Pressure 120/64 120/64 120/64 O2 Sat by Pulse 93 92 92 Oximetry O2 Sat by Pulse Oximetry [ Anterior Bilateral Throughout] 03/17/21 03/17/21 03/17/21 04:40 04:50 05:00 Temperature Pulse Rate 78 80 80 Pulse Rate [ From Monitor] Respiratory 15 16 17 Rate Blood Pressure 120/64 120/64 131/69 O2 Sat by Pulse 92 94 91 Oximetry O2 Sat by Pulse Oximetry [ Anterior Bilateral Throughout] 03/17/21 03/17/21 03/17/21 05:10 05:20 05:30 Temperature Pulse Rate 83 84 92 H Pulse Rate [ From Monitor] Respiratory 20 17 19 Rate Blood Pressure 131/69 131/69 131/69 O2 Sat by Pulse 93 92 Oximetry O2 Sat by Pulse Oximetry [ Anterior Bilateral Throughout] 03/17/21 03/17/21 03/17/21 05:40 05:50 06:00 Temperature Pulse Rate 78 80 80 Pulse Rate [ From Monitor] Respiratory 17 15 15 Rate Blood Pressure 131/69 131/69 162/84 O2 Sat by Pulse 97 99 98 Oximetry O2 Sat by Pulse Oximetry [ Anterior Bilateral Throughout] 03/17/21 03/17/21 03/17/21 06:10 06:20 06:30 Temperature Pulse Rate 81 81 80 Pulse Rate [ From Monitor] Respiratory 17 15 14 Rate Blood Pressure 162/84 162/84 162/84 O2 Sat by Pulse 99 100 100 Oximetry O2 Sat by Pulse Oximetry [ Anterior Bilateral Throughout] 03/17/21 03/17/21 03/17/21 06:40 06:50 07:00 Temperature Pulse Rate 79 78 79 Pulse Rate [ From Monitor] Respiratory 14 12 14 Rate Blood Pressure 162/84 162/84 153/80 O2 Sat by Pulse 100 98 99 Oximetry O2 Sat by Pulse Oximetry [ Anterior Bilateral Throughout] 03/17/21 03/17/21 03/17/21 07:10 07:20 07:30 Temperature Pulse Rate 79 78 78 Pulse Rate [ From Monitor] Respiratory 16 17 16 Rate Blood Pressure 156/91 156/91 156/91 O2 Sat by Pulse 99 98 100 Oximetry O2 Sat by Pulse Oximetry [ Anterior Bilateral Throughout] 03/17/21 03/17/21 03/17/21 07:40 07:50 07:56 Temperature Pulse Rate 80 79 Pulse Rate [ From Monitor] Respiratory 16 15 Rate Blood Pressure 156/91 156/91 O2 Sat by Pulse 98 98 99 Oximetry O2 Sat by Pulse Oximetry [ Anterior Bilateral Throughout] 03/17/21 03/17/21 03/17/21 08:00 08:10 08:20 Temperature Pulse Rate 81 81 81 Pulse Rate [ 80 From Monitor] Respiratory 18 16 14 Rate Blood Pressure 153/80 165/89 O2 Sat by Pulse 99 100 100 Oximetry O2 Sat by Pulse Oximetry [ Anterior Bilateral Throughout] 03/17/21 03/17/21 03/17/21 08:30 08:40 08:50 Temperature Pulse Rate 80 81 80 Pulse Rate [ From Monitor] Respiratory 13 14 14 Rate Blood Pressure 165/89 165/89 165/89 O2 Sat by Pulse 100 100 100 Oximetry O2 Sat by Pulse Oximetry [ Anterior Bilateral Throughout] 03/17/21 03/17/21 03/17/21 09:00 09:10 09:20 Temperature Pulse Rate 81 83 83 Pulse Rate [ From Monitor] Respiratory 14 15 20 Rate Blood Pressure 138/66 138/66 138/66 O2 Sat by Pulse 98 99 99 Oximetry O2 Sat by Pulse Oximetry [ Anterior Bilateral Throughout] 03/17/21 03/17/21 03/17/21 09:30 09:40 09:45 Temperature 100.2 F H Pulse Rate 80 79 77 Pulse Rate [ From Monitor] Respiratory 15 15 Rate Blood Pressure 138/66 138/66 162/92 O2 Sat by Pulse 99 100 Oximetry O2 Sat by Pulse 98 Oximetry [ Anterior Bilateral Throughout] 03/17/21 03/17/21 03/17/21 09:50 10:00 10:10 Temperature Pulse Rate 79 81 80 Pulse Rate [ From Monitor] Respiratory 15 17 15 Rate Blood Pressure 162/92 154/91 154/91 O2 Sat by Pulse 98 100 98 Oximetry O2 Sat by Pulse Oximetry [ Anterior Bilateral Throughout] 03/17/21 03/17/21 03/17/21 10:15 10:20 10:30 Temperature Pulse Rate 81 82 82 Pulse Rate [ From Monitor] Respiratory 16 23 Rate Blood Pressure 156/90 156/90 157/82 O2 Sat by Pulse 99 99 Oximetry O2 Sat by Pulse Oximetry [ Anterior Bilateral Throughout] 03/17/21 03/17/21 03/17/21 10:40 10:45 10:50 Temperature Pulse Rate 81 82 80 Pulse Rate [ From Monitor] Respiratory 16 14 Rate Blood Pressure 157/82 153/89 153/89 O2 Sat by Pulse 98 98 Oximetry O2 Sat by Pulse Oximetry [ Anterior Bilateral Throughout] 03/17/21 03/17/21 03/17/21 11:00 11:10 11:15 Temperature Pulse Rate 82 79 79 Pulse Rate [ From Monitor] Respiratory 16 16 Rate Blood Pressure 148/82 148/82 146/92 O2 Sat by Pulse 99 99 Oximetry O2 Sat by Pulse Oximetry [ Anterior Bilateral Throughout] 03/17/21 03/17/21 03/17/21 11:20 11:30 11:40 Temperature Pulse Rate 80 78 79 Pulse Rate [ From Monitor] Respiratory 14 13 15 Rate Blood Pressure 146/92 152/91 148/82 O2 Sat by Pulse 99 99 100 Oximetry O2 Sat by Pulse Oximetry [ Anterior Bilateral Throughout] 03/17/21 03/17/21 03/17/21 11:45 11:50 12:00 Temperature Pulse Rate 81 82 79 Pulse Rate [ 80 From Monitor] Respiratory 15 15 Rate Blood Pressure 145/88 145/88 135/81 O2 Sat by Pulse 99 100 Oximetry O2 Sat by Pulse Oximetry [ Anterior Bilateral Throughout] 03/17/21 03/17/21 03/17/21 12:10 12:15 12:20 Temperature Pulse Rate 82 80 82 Pulse Rate [ From Monitor] Respiratory 17 15 Rate Blood Pressure 135/81 130/74 130/74 O2 Sat by Pulse 98 100 Oximetry O2 Sat by Pulse Oximetry [ Anterior Bilateral Throughout] 03/17/21 03/17/21 03/17/21 12:30 12:40 12:45 Temperature 97.8 F Pulse Rate 79 81 78 Pulse Rate [ From Monitor] Respiratory 14 15 Rate Blood Pressure 132/72 132/72 145/82 O2 Sat by Pulse 100 100 Oximetry O2 Sat by Pulse Oximetry [ Anterior Bilateral Throughout] 03/17/21 03/17/21 03/17/21 12:50 13:00 13:10 Temperature Pulse Rate 78 79 87 Pulse Rate [ From Monitor] Respiratory 13 15 21 Rate Blood Pressure 145/82 148/75 148/75 O2 Sat by Pulse 100 100 100 Oximetry O2 Sat by Pulse Oximetry [ Anterior Bilateral Throughout] 03/17/21 03/17/21 03/17/21 13:19 13:20 13:30 Temperature 98.6 F Pulse Rate 84 84 81 Pulse Rate [ From Monitor] Respiratory 14 15 16 Rate Blood Pressure 141/75 141/75 140/84 O2 Sat by Pulse 100 100 Oximetry O2 Sat by Pulse 100 Oximetry [ Anterior Bilateral Throughout] - Labs CBC & Chem 7: 03/21/21 03:23 03/22/21 04:18 Labs: Abnormal lab results 03/16/21 03/16/21 03/16/21 Range/Units 09:53 14:45 14:50 RBC (3.65-5.03) M/mm3 Hgb (11.8-15.2) gm/dl Hct (35.5-45.6) % RDW (13.2-15.2) % Seg Neuts % (Manual) (40.0-70.0) % Lymphocytes % (Manual) (13.4-35.0) % Eosinophils % (Manual) (0.0-4.3) % Lymphocytes # (Manual) (1.2-5.4) K/mm3 Eosinophils # (Manual) (0.0-0.4) K/mm3 Heparin Anti-Xa Level 0.19 L (0.3-0.7) U.I./ml Carbon Dioxide 17 L D (22-30) mmol/L BUN 47 H (9-20) mg/dL Creatinine 7.1 H (0.8-1.3) mg/dL POC Glucose (70-105) mg/dL C-Reactive Protein (0.00-1.30) mg/dL Urine WBC (Auto) 8.0 H (0.0-6.0) /HPF 03/16/21 03/16/21 03/16/21 Range/Units 16:43 18:45 23:22 RBC (3.65-5.03) M/mm3 Hgb 7.7 L (11.8-15.2) gm/dl Hct 23.4 L (35.5-45.6) % RDW (13.2-15.2) % Seg Neuts % (Manual) (40.0-70.0) % Lymphocytes % (Manual) (13.4-35.0) % Eosinophils % (Manual) (0.0-4.3) % Lymphocytes # (Manual) (1.2-5.4) K/mm3 Eosinophils # (Manual) (0.0-0.4) K/mm3 Heparin Anti-Xa Level 0.17 L (0.3-0.7) U.I./ml Carbon Dioxide (22-30) mmol/L BUN (9-20) mg/dL Creatinine (0.8-1.3) mg/dL POC Glucose (70-105) mg/dL C-Reactive Protein 14.90 H (0.00-1.30) mg/dL Urine WBC (Auto) (0.0-6.0) /HPF 03/17/21 03/17/21 03/17/21 Range/Units 05:57 05:57 05:57 RBC 2.44 L (3.65-5.03) M/mm3 Hgb 7.6 L (11.8-15.2) gm/dl Hct 22.5 L (35.5-45.6) % RDW 16.4 H (13.2-15.2) % Seg Neuts % (Manual) 75.0 H (40.0-70.0) % Lymphocytes % (Manual) 12.0 L (13.4-35.0) % Eosinophils % (Manual) 6.0 H (0.0-4.3) % Lymphocytes # (Manual) 1.0 L (1.2-5.4) K/mm3 Eosinophils # (Manual) 0.5 H (0.0-0.4) K/mm3 Heparin Anti-Xa Level 0.20 L (0.3-0.7) U.I./ml Carbon Dioxide (22-30) mmol/L BUN 58 H (9-20) mg/dL Creatinine 7.8 H (0.8-1.3) mg/dL POC Glucose (70-105) mg/dL C-Reactive Protein (0.00-1.30) mg/dL Urine WBC (Auto) (0.0-6.0) /HPF 03/17/21 03/17/21 Range/Units 13:04 13:17 RBC (3.65-5.03) M/mm3 Hgb (11.8-15.2) gm/dl Hct (35.5-45.6) % RDW (13.2-15.2) % Seg Neuts % (Manual) (40.0-70.0) % Lymphocytes % (Manual) (13.4-35.0) % Eosinophils % (Manual) (0.0-4.3) % Lymphocytes # (Manual) (1.2-5.4) K/mm3 Eosinophils # (Manual) (0.0-0.4) K/mm3 Heparin Anti-Xa Level < 0.10 L (0.3-0.7) U.I./ml Carbon Dioxide (22-30) mmol/L BUN (9-20) mg/dL Creatinine (0.8-1.3) mg/dL POC Glucose 109 H (70-105) mg/dL C-Reactive Protein (0.00-1.30) mg/dL Urine WBC (Auto) (0.0-6.0) /HPF
[2021-03-17] MEDS ORDERED: TOTAL PARENTERAL NUTRITION 1,800 ML IV SCH (20:00)
--- NOTE | 2021-03-17 20:21 | Progress Note ---
Assessment and Plan Assessment - End-stage renal disease on hemodialysis - Anemia of ESRD - Hyperphosphatemia - Fever - Hypoxia Recommendations - Continue HD MWF - Monitor labs and volume status daily and assess need for additional dialysis session - Transfuse for hgb < 7 - Hold epogen during acute process - Check P periodically, currently at goal - Noted surgery evaluation, given extensive surgical h/o and drain in place - ESRD diet with 1.4 g/kg per day protein - Renally dose medication for creatinine clearance less than 15 cc/min Subjective Date of service: 03/17/21 Principal diagnosis: Hypoxia, fever Interval history: Seen during dialysis. Somnolent. No complications. Objective - Exam Narrative Exam: General: No acute distress HEENT: Oral mucosa moist Neck: Supple, no JVD Chest: Clear to auscultation bilaterally Heart: RRR, S1 and S2, no pericardial rub Abdomen: Soft, nontender, no renal bruit Extremity: No peripheral cyanosis, edema Neurological: Somnolent but awakens to touch Dermatology: No skin rash Psych: No agitation Musculoskeletal: No joint effusion - Vital Signs Vital signs: Vital Signs - 12hr 03/17/21 03/17/21 03/17/21 08:20 08:30 08:40 Temperature Pulse Rate 81 80 81 Pulse Rate [ From Monitor] Respiratory 14 13 14 Rate Blood Pressure 165/89 165/89 165/89 O2 Sat by Pulse 100 100 100 Oximetry O2 Sat by Pulse Oximetry [ Anterior Bilateral Throughout] 03/17/21 03/17/21 03/17/21 08:50 09:00 09:10 Temperature Pulse Rate 80 81 83 Pulse Rate [ From Monitor] Respiratory 14 14 15 Rate Blood Pressure 165/89 138/66 138/66 O2 Sat by Pulse 100 98 99 Oximetry O2 Sat by Pulse Oximetry [ Anterior Bilateral Throughout] 03/17/21 03/17/21 03/17/21 09:20 09:30 09:40 Temperature 100.2 F H Pulse Rate 83 80 79 Pulse Rate [ From Monitor] Respiratory 20 15 15 Rate Blood Pressure 138/66 138/66 138/66 O2 Sat by Pulse 99 99 100 Oximetry O2 Sat by Pulse 98 Oximetry [ Anterior Bilateral Throughout] 03/17/21 03/17/21 03/17/21 09:45 09:50 10:00 Temperature Pulse Rate 77 79 81 Pulse Rate [ From Monitor] Respiratory 15 17 Rate Blood Pressure 162/92 162/92 154/91 O2 Sat by Pulse 98 100 Oximetry O2 Sat by Pulse Oximetry [ Anterior Bilateral Throughout] 03/17/21 03/17/21 03/17/21 10:10 10:15 10:20 Temperature Pulse Rate 80 81 82 Pulse Rate [ From Monitor] Respiratory 15 16 Rate Blood Pressure 154/91 156/90 156/90 O2 Sat by Pulse 98 99 Oximetry O2 Sat by Pulse Oximetry [ Anterior Bilateral Throughout] 03/17/21 03/17/21 03/17/21 10:30 10:40 10:45 Temperature Pulse Rate 82 81 82 Pulse Rate [ From Monitor] Respiratory 23 16 Rate Blood Pressure 157/82 157/82 153/89 O2 Sat by Pulse 99 98 Oximetry O2 Sat by Pulse Oximetry [ Anterior Bilateral Throughout] 03/17/21 03/17/21 03/17/21 10:50 11:00 11:10 Temperature Pulse Rate 80 82 79 Pulse Rate [ From Monitor] Respiratory 14 16 16 Rate Blood Pressure 153/89 148/82 148/82 O2 Sat by Pulse 98 99 99 Oximetry O2 Sat by Pulse Oximetry [ Anterior Bilateral Throughout] 03/17/21 03/17/21 03/17/21 11:15 11:20 11:30 Temperature Pulse Rate 79 80 78 Pulse Rate [ From Monitor] Respiratory 14 13 Rate Blood Pressure 146/92 146/92 152/91 O2 Sat by Pulse 99 99 Oximetry O2 Sat by Pulse Oximetry [ Anterior Bilateral Throughout] 03/17/21 03/17/21 03/17/21 11:40 11:45 11:50 Temperature Pulse Rate 79 81 82 Pulse Rate [ From Monitor] Respiratory 15 15 Rate Blood Pressure 148/82 145/88 145/88 O2 Sat by Pulse 100 99 Oximetry O2 Sat by Pulse Oximetry [ Anterior Bilateral Throughout] 03/17/21 03/17/21 03/17/21 12:00 12:10 12:15 Temperature Pulse Rate 79 82 80 Pulse Rate [ 80 From Monitor] Respiratory 15 17 Rate Blood Pressure 135/81 135/81 130/74 O2 Sat by Pulse 100 98 Oximetry O2 Sat by Pulse Oximetry [ Anterior Bilateral Throughout] 03/17/21 03/17/21 03/17/21 12:20 12:30 12:40 Temperature 97.8 F Pulse Rate 82 79 81 Pulse Rate [ From Monitor] Respiratory 15 14 15 Rate Blood Pressure 130/74 132/72 132/72 O2 Sat by Pulse 100 100 100 Oximetry O2 Sat by Pulse Oximetry [ Anterior Bilateral Throughout] 03/17/21 03/17/21 03/17/21 12:45 12:50 13:00 Temperature Pulse Rate 78 78 79 Pulse Rate [ From Monitor] Respiratory 13 15 Rate Blood Pressure 145/82 145/82 148/75 O2 Sat by Pulse 100 100 Oximetry O2 Sat by Pulse Oximetry [ Anterior Bilateral Throughout] 03/17/21 03/17/21 03/17/21 13:10 13:19 13:20 Temperature 98.6 F Pulse Rate 87 84 84 Pulse Rate [ From Monitor] Respiratory 21 14 15 Rate Blood Pressure 148/75 141/75 141/75 O2 Sat by Pulse 100 100 Oximetry O2 Sat by Pulse 100 Oximetry [ Anterior Bilateral Throughout] 03/17/21 03/17/21 03/17/21 13:30 13:40 13:50 Temperature Pulse Rate 81 79 82 Pulse Rate [ From Monitor] Respiratory 16 12 14 Rate Blood Pressure 140/84 140/84 147/76 O2 Sat by Pulse 100 100 100 Oximetry O2 Sat by Pulse Oximetry [ Anterior Bilateral Throughout] 03/17/21 03/17/21 03/17/21 14:00 14:10 14:20 Temperature Pulse Rate 79 81 80 Pulse Rate [ From Monitor] Respiratory 14 14 16 Rate Blood Pressure 133/78 133/78 134/72 O2 Sat by Pulse 100 100 100 Oximetry O2 Sat by Pulse Oximetry [ Anterior Bilateral Throughout] 03/17/21 03/17/21 03/17/21 14:30 14:40 14:50 Temperature Pulse Rate 96 H 80 85 Pulse Rate [ From Monitor] Respiratory 13 13 28 H Rate Blood Pressure 144/68 144/68 134/76 O2 Sat by Pulse 100 100 98 Oximetry O2 Sat by Pulse Oximetry [ Anterior Bilateral Throughout] 03/17/21 03/17/21 03/17/21 15:00 15:10 15:20 Temperature Pulse Rate 79 80 78 Pulse Rate [ From Monitor] Respiratory 15 12 13 Rate Blood Pressure 136/70 136/70 156/82 O2 Sat by Pulse 94 99 96 Oximetry O2 Sat by Pulse Oximetry [ Anterior Bilateral Throughout] 03/17/21 03/17/21 03/17/21 15:30 15:40 15:50 Temperature Pulse Rate 80 79 80 Pulse Rate [ From Monitor] Respiratory 13 14 13 Rate Blood Pressure 149/82 156/82 149/75 O2 Sat by Pulse 96 96 96 Oximetry O2 Sat by Pulse Oximetry [ Anterior Bilateral Throughout] 03/17/21 03/17/21 03/17/21 16:00 16:10 16:20 Temperature 97.8 F Pulse Rate 83 80 81 Pulse Rate [ 80 From Monitor] Respiratory 14 14 16 Rate Blood Pressure 139/67 149/75 146/77 O2 Sat by Pulse 97 97 94 Oximetry O2 Sat by Pulse Oximetry [ Anterior Bilateral Throughout] 03/17/21 03/17/21 03/17/21 16:30 16:40 16:50 Temperature Pulse Rate 83 84 80 Pulse Rate [ From Monitor] Respiratory 14 15 18 Rate Blood Pressure 149/78 149/78 134/58 O2 Sat by Pulse 90 86 88 Oximetry O2 Sat by Pulse Oximetry [ Anterior Bilateral Throughout] 03/17/21 03/17/21 03/17/21 17:00 17:10 17:20 Temperature Pulse Rate 78 79 79 Pulse Rate [ From Monitor] Respiratory 9 L 14 13 Rate Blood Pressure 134/58 134/68 155/90 O2 Sat by Pulse 97 95 97 Oximetry O2 Sat by Pulse Oximetry [ Anterior Bilateral Throughout] 03/17/21 03/17/21 03/17/21 17:30 17:40 17:50 Temperature Pulse Rate 79 78 77 Pulse Rate [ From Monitor] Respiratory 14 18 12 Rate Blood Pressure 136/65 155/90 120/67 O2 Sat by Pulse 98 97 97 Oximetry O2 Sat by Pulse Oximetry [ Anterior Bilateral Throughout] 03/17/21 03/17/21 03/17/21 18:00 18:10 18:20 Temperature Pulse Rate 82 80 79 Pulse Rate [ From Monitor] Respiratory 21 10 L 19 Rate Blood Pressure 138/76 138/76 153/81 O2 Sat by Pulse 95 Oximetry O2 Sat by Pulse Oximetry [ Anterior Bilateral Throughout] 03/17/21 03/17/21 03/17/21 18:30 18:40 18:50 Temperature Pulse Rate 78 77 79 Pulse Rate [ From Monitor] Respiratory 19 18 17 Rate Blood Pressure 150/77 150/77 155/83 O2 Sat by Pulse Oximetry O2 Sat by Pulse Oximetry [ Anterior Bilateral Throughout] 03/17/21 03/17/21 03/17/21 19:00 19:10 19:20 Temperature Pulse Rate 86 82 81 Pulse Rate [ From Monitor] Respiratory 15 15 17 Rate Blood Pressure 155/83 155/83 155/83 O2 Sat by Pulse Oximetry O2 Sat by Pulse Oximetry [ Anterior Bilateral Throughout] 03/17/21 03/17/21 03/17/21 19:30 19:40 19:50 Temperature Pulse Rate 83 80 83 Pulse Rate [ From Monitor] Respiratory 18 17 16 Rate Blood Pressure 155/83 155/83 155/83 O2 Sat by Pulse 93 Oximetry O2 Sat by Pulse Oximetry [ Anterior Bilateral Throughout] 03/17/21 03/17/21 20:00 20:10 Temperature Pulse Rate 78 78 Pulse Rate [ From Monitor] Respiratory 15 12 Rate Blood Pressure 155/83 141/73 O2 Sat by Pulse 95 92 Oximetry O2 Sat by Pulse Oximetry [ Anterior Bilateral Throughout] - Lab 03/17/21 05:57 03/17/21 05:57 Most recent lab results ABG pH 7.367 (7.320-7.450) 03/15/21 12:54 ABG O2 Saturation 89.9 (0-100) 03/15/21 12:54 Calcium 9.2 mg/dL (8.4-10.2) 03/17/21 05:57 Phosphorus 3.30 mg/dL (2.5-4.5) 03/17/21 05:57 Magnesium 2.30 mg/dL (1.7-2.3) 03/17/21 05:57 Medications & Allergies - Medications Allergies/Adverse Reactions: Allergies No Known Allergies Allergy (Verified 06/09/20 15:27) Home Medications: Home Medications Medication Instructions Recorded Confirmed Last Taken Type Albuterol Mdi (or & Nicu Only) 2 puff IH QID PRN #1 inhalation 04/01/17 03/15/21 10/31/20 09:00 Rx [ProAir HFA Inhaler] Calcium Acetate 667 mg PO DAILY 04/20/20 03/15/21 10/31/20 09:00 History Centrum Men's Tablet 1 tab PO DAILY 04/20/20 03/15/21 10/31/20 09:00 History Cinacalcet 30 mg PO DAILY 04/20/20 03/15/21 10/31/20 09:00 History Dialyvite with Zinc Tablet 1 tab PO DAILY 04/20/20 03/15/21 10/31/20 09:00 History Magnesium 250 mg PO BID 04/20/20 03/15/21 10/31/20 17:00 History Triamcinolone 0.1% 1 1000units TRANSDERMA DAILY 04/20/20 03/15/21 10/31/20 09:00 History Vit B12/Folic Acid/B6/Aa No.15 1,000 mg PO DAILY 04/20/20 03/15/21 10/31/20 09:00 History amLODIPine 10 mg PO DAILY 06/09/20 03/15/21 10/31/20 09:00 History AtorvaSTATin 40 mg PO HS 11/01/20 03/15/21 10/31/20 21:00 History Benadryl 25 mg PO HS 11/01/20 03/15/21 10/31/20 21:00 History Diclofenac 1 applic TRANSDERMA QID 11/01/20 03/15/21 10/31/20 19:00 History Vitamin D3 2,000 units PO QDAY 11/01/20 03/15/21 10/31/20 09:00 History carvediloL 12.5 mg PO DAILY 11/01/20 03/15/21 10/31/20 09:00 History hydrALAZINE 100 mg PO TID 11/01/20 03/15/21 10/31/20 19:00 History Fluticasone Propionate 1 spray INTRANASAL DAILY #1 02/21/21 03/15/21 Unknown Rx HYDROcodone/ACETAMINOPHEN 15 ml PO Q6H PRN #150 ml 02/21/21 03/15/21 Unknown Rx [Hydrocodon-Acetamin 7.5-325/15] Insulin Glargine [Lantus VIAL] 5 units SUB-Q QHS #1 units 02/21/21 03/15/21 Un known Rx Lispro Insulin [HumaLOG] See Protocol SUB-Q Q6HR #1 vial 02/21/21 03/15/21 Unknown Rx Scopolamine [Transderm-Scop] 1 each TD Q3D #10 patch 02/21/21 03/15/21 Unknown Rx cloNIDine-TTS PATCH [Catapres-Tts 0.2 mg TD We #30 patch 02/21/21 03/15/21 Unknown Rx 0.2mg Patch] Active Medications: Generic Name Dose Route Start Last Admin Trade Name Freq PRN Reason Stop Dose Admin Acetaminophen 650 mg 03/15/21 19:31 03/17/21 00:13 Acetaminophen 325 Mg Tab PO 650 mg Q4H PRN Administration Pain MILD(1-3)/Fever >100.5/HULL Hydrocodone Bitart/Acetaminophen 7.5 mg 03/15/21 19:39 Hydrocodone/Acetaminophen [id number] Oral Liqd PO Q6H PRN Pain , Severe (7-10) Albuterol 2.5 mg 03/15/21 19:31 Albuterol 2.5 Mg/3 Ml Nebu IH Q4HRT PRN Shortness Of Breath Calcium Acetate 667 mg 03/16/21 10:00 03/17/21 09:18 Calcium Acetate 667 Mg Cap PO 667 mg DAILY THOMAS Administration Carvedilol 12.5 mg 03/16/21 10:00 03/17/21 09:18 Carvedilol 12.5 Mg Tab PO 12.5 mg DAILY THOMAS Administration Cholecalciferol 2,000 unit 03/16/21 10:00 03/17/21 09:18 Cholecalciferol (Vit D3) 1000 Unit (25 Mcg) Tab PO 2,000 unit QDAY THOMAS Administration Dextrose 50 ml 03/15/21 19:46 Dextrose 50% In Water (25gm) 50 Ml Syringe IV Q30MIN PRN Hypoglycemia Protocol Famotidine 10 mg 03/15/21 22:00 03/17/21 09:18 Famotidine 20 Mg/2 Ml Inj IV 10 mg BID THOMAS Administration Heparin Sodium (Porcine) 3,200 unit 03/15/21 17:16 03/17/21 14:35 Heparin 10,000 Units/10 Ml Vial 40 unit/kg (3200 unit) 3,200 unit IV Administration Q6H PRN Anti-Xa Assay<0.1 units/ml Hydromorphone HCl 0.5 mg 03/15/21 19:31 Hydromorphone 1 Mg/1 Ml Inj IV Q3H PRN Pain , Severe (7-10) Sodium Chloride 100 mls @ 999 mls/hr 03/15/21 16:00 Nacl 0.9% IV [place] PRN Hypotension Sodium Chloride 500 mls @ 0 mls/hr 03/15/21 21:11 03/16/21 05:56 Nacl 0.9% 500 Ml IV 03/17/21 23:59 50 mls/hr ONCE NR Administration As Directed Heparin Sodium/Sodium Chloride 25,000 unit in 500 mls @ 23 mls/hr 03/16/21 07:00 03/17/21 14:40 Heparin/ 0.45% Nacl-25,000 Unit/500 Ml IV 1,650 units/hr TITR THOMAS 33 mls/hr Titration Protocol 1,150 UNITS/HR Micafungin Sodium 100 mg/ 100 mls @ 100 mls/hr 03/16/21 19:00 03/16/21 19:27 Sodium Chloride IV 100 mls/hr Q24H THOMAS Administration Protocol Amino Acids/Electrolytes/Dextrose 1,800 mls @ 75 mls/hr 03/17/21 20:00 Tpn Adult IV 03/18/21 19:59 DAILY@1999 [facility] Protocol Octreotide Acetate 50 mcg/ 51 mls @ 100 mls/hr 03/17/21 14:00 03/17/21 15:40 Sodium Chloride IV Infused Q8HR THOMAS Infusion Insulin Human Regular 0 units 03/15/21 20:00 03/17/21 13:33 Insulin Regular, Human 100 Units/1 Ml SUB-Q Not Given Q6H [facility] Protocol Magnesium Oxide 400 mg 03/16/21 10:00 03/17/21 09:18 Magnesium Oxide 400 Mg Tab PO 400 mg QDAY THOMAS Administration Morphine Sulfate 2 mg 03/15/21 19:31 03/16/21 13:27 Morphine 2 Mg/1 Ml Inj IV 2 mg Q4H PRN Administration Pain, Moderate (4-6) Ondansetron HCl 4 mg 03/15/21 19:31 Ondansetron 4 Mg/2 Ml Inj IV Q8H PRN Nausea And Vomiting Scopolamine 1 each 03/16/21 10:00 03/16/21 10:43 Scopolamine Transdermal Patch 72 Hr TD 1 each Q3D THOMAS Administration Sodium Chloride 10 ml 03/15/21 22:00 03/17/21 09:18 Sodium Chloride 0.9% 10 Ml Flush Syringe IV 10 ml BID THOMAS Administration Sodium Chloride 10 ml 03/15/21 20:31 Sodium Chloride 0.9% 10 Ml Flush Syringe IV PRN PRN LINE FLUSH
[2021-03-17] MEDS: MICAFUNGIN 100 MG in SODIUM CHLORIDE 0.9% 100 ML IV SCH (20:35)
[2021-03-18] MEDS: INSULIN REGULAR, HUMAN 100 UNITS/1 ML SUB-Q SCH ×4 (05:28→15:08)
[2021-03-18] MEDS: OCTREOTIDE 50 MCG in SODIUM CHLORIDE 0.9% 50 ML IV SCH ×3 (05:30→23:17)
[2021-03-18 06:54] LABS: Basophils # (Auto) 0.1 K/mm3 (0.0-0.1); Basophils % (Auto) 0.6 % (0.0-1.8); Eosinophils # (Auto) 0.4 K/mm3 (0.0-0.4); Eosinophils % (Auto) 3.2 % (0.0-4.3); Hematocrit 24.3 % (35.5-45.6); Hemoglobin 7.9 gm/dl (11.8-15.2); Lymphocytes # (Auto) 1.3 K/mm3 (1.2-5.4); Lymphocytes % (Auto) 10.9 % (13.4-35.0); Mean Corpuscular HGB Conc 33 % (32-34); Mean Corpuscular Volume 93 fl (84-94); Monocytes # (Auto) 1.8 K/mm3 (0.0-0.8); Platelet Count 229 K/mm3 (140-440); Red Blood Count 2.61 M/mm3 (3.65-5.03)
[2021-03-18 07:16] LABS: Albumin 2.5 g/dL (3.9-5); Bilirubin,Direct 0.4 mg/dL (0-0.2); Calcium 8.9 mg/dL (8.4-10.2)
--- NOTE | 2021-03-18 07:39 | Progress Note ---
Assessment and Plan -Cultures: Blood culture 03/15/2021 growing yeast in multiple bottles. Assessment: 61-year-old male with history of ESRD initially on PD, CHF, , Crohn's disease, CHF, gastroesophageal reflux disease, status post prolonged hospital complicated stay from 12/22/2020-02/21/2021 due to complicated small bowel obstruction with necrotic small bowel s/p small bowel resection and primary anastomosis, requiring right hemicolectomy on 01/03/2021, complicated with a Streptococcus bovis and Prevotella bacteremia on 12/22/2020, complicated with perforated anastomosis, s/p multiple surgeries readmitted on 03/15/2021 [place] to fever, hypoxia and altered mental status/somnolence: #Severe sepsis: Present on admission with high fever, tachycardia, elevated LFTs; likely secondary to candidemia. #Candidemia: Yeast present in several bottles of blood cultures. Likely due to intra-abdominal collection. #Pancreatic pseudocyst vs intra-abdominal collection: CT with 6.6 x 3.3 x 4.8 cm pseudocyst likely source of candidemia. CRP 14.9. Lipase normal. #Complicated small bowel obstruction: with necrotic small bowel s/p small bowel resection and primary anastomosis, requiring right hemicolectomy on 01/03/2021, and multiple other surgeries. #Acute pulmonary embolism: On heparin drip. #Elevated LFTs: Likely secondary to sepsis/pancreatic pseudocyst more than acute hepatitis B infection. Patient noted to have hepatitis B core IgM positive ? False positive versus acute hepatitis B less likely. #ESRD on hemodialysis. Renally adjust antibiotics. #Acute encephalopathy: Likely secondary to sepsis. Recommendations: -Continue micafungin 100 mg IV daily D3 -Repeat blood cultures ordered -Follow initial blood cultures yeast identification -Obtain transthoracic echo to rule out endocarditis, pending -If patient has any retained central /HD lines please remove as soon as possible -Agree with GI medicine evaluation for pancreatic pseudocyst, consider drainage for Gram stain and cultures, GI medicine recommended transfer to [facility] -Follow-up hepatitis B DNA PCR -Ophthalmology evaluation to rule out candidal endophthalmitis Very guarded prognosis Will follow. Millicent Quintana MD Infectious Diseases [facility] ([facility] M [phone] O [phone] Subjective Date of service: 03/18/21 Principal diagnosis: Hypoxia, fever Interval history: Feels better, no complaints, on heparin drip and TPN, noted low-grade fever. Objective - Exam Narrative Exam: General appearance: Alert, debilitated, in no acute distress Eyes: anicteric sclerae, moist conjunctivae; no lid-lag; PERRLA HENT: Normocephalic, Atraumatic; normal external ears, nares open, oropharynx limited Neck: supple, tracheal midline, no JVD Lungs: Clear to auscultation bilaterally CV: RRR no murmur Abdomen: Soft, midline scar, drain in place x2 Extremities: no edema, no cyanosis Skin: No rash. Psych: no agitated Neuro: Confused - - Constitutional Vitals: Vital Signs Temp Pulse Resp BP Pulse Ox 99.4 F 76 17 158/94 92 03/18/21 07:00 03/18/21 07:10 03/18/21 07:10 03/18/21 07:10 03/18/21 07:10 Temperature -Last 24 Hours Temperature 99.4 F Temperature 98.1 F Temperature 100.0 F Temperature 100.6 F Temperature 97.8 F Temperature 98.6 F Temperature 97.8 F Temperature 100.2 F - Labs CBC & Chem 7: 03/18/21 06:08 03/18/21 06:08 Labs: Abnormal lab results 03/17/21 03/17/21 03/17/21 Range/Units 13:04 13:17 22:56 WBC (4.5-11.0) K/mm3 RBC (3.65-5.03) M/mm3 Hgb (11.8-15.2) gm/dl Hct (35.5-45.6) % RDW (13.2-15.2) % Lymph % (Auto) (13.4-35.0) % [place] % (Auto) (0.0-7.3) % [place] # (Auto) (0.0-0.8) K/mm3 Seg Neutrophils # (1.8-7.7) K/mm3 Heparin Anti-Xa Level < 0.10 L (0.3-0.7) U.I./ml BUN (9-20) mg/dL Creatinine (0.8-1.3) mg/dL Glucose (75-100) mg/dL POC Glucose 109 H 106 H (70-105) mg/dL Total Bilirubin (0.1-1.2) mg/dL Direct Bilirubin (0-0.2) mg/dL AST (5-40) units/L ALT (7-56) units/L Alkaline Phosphatase (35-129) units/L Total Protein (6.3-8.2) g/dL Albumin (3.9-5) g/dL 03/18/21 03/18/21 03/18/21 Range/Units 05:20 06:08 06:08 WBC 11.5 H (4.5-11.0) K/mm3 RBC 2.61 L (3.65-5.03) M/mm3 Hgb 7.9 L (11.8-15.2) gm/dl Hct 24.3 L (35.5-45.6) % RDW 17.0 H (13.2-15.2) % Lymph % (Auto) 10.9 L (13.4-35.0) % [place] % (Auto) 16.0 H (0.0-7.3) % [place] # (Auto) 1.8 H (0.0-0.8) K/mm3 Seg Neutrophils # 8.0 H (1.8-7.7) K/mm3 Heparin Anti-Xa Level (0.3-0.7) U.I./ml BUN 37 H (9-20) mg/dL Creatinine 5.7 H (0.8-1.3) mg/dL Glucose 123 H (75-100) mg/dL POC Glucose 123 H (70-105) mg/dL Total Bilirubin 1.30 H (0.1-1.2) mg/dL Direct Bilirubin 0.4 H (0-0.2) mg/dL AST 65 H (5-40) units/L ALT 180 H (7-56) units/L Alkaline Phosphatase 303 H (35-129) units/L Total Protein 6.2 L (6.3-8.2) g/dL Albumin 2.5 L (3.9-5) g/dL
[2021-03-18] MEDS: CALCIUM ACETATE 667 MG CAP PO SCH (09:34)
[2021-03-18] MEDS: CHOLECALCIFEROL (VIT D3) 1000 UNIT (25 mcg) TAB PO SCH (09:34)
[2021-03-18] MEDS: carvediloL 12.5 MG TAB PO SCH (09:34)
[2021-03-18] MEDS: MAGNESIUM OXIDE 400 MG TAB PO SCH (09:34)
[2021-03-18] MEDS: FAMOTIDINE 20 MG/2 ML INJ IV SCH ×2 (09:34→22:07)
[2021-03-18] MEDS: HEPARIN/ 0.45% NACL DRIP 25,000 UNIT/500 ML BAG IV SCH (11:48)
--- NOTE | 2021-03-18 13:17 | Progress Note ---
Assessment and Plan 60-year-old male, with extensive history of multiple abdominal surgeries, controlled anastomotic leak that is transitioning to a fistula, and new acute pulmonary embolism. Stable. 1. Sepsis work up - 1/2 blood culture bottles with growth preliminarily. No speciation as yet 2. Pulmonary embolism- supportive care and treat with anticoagulation, on hepgtt 3. Abdominal fluid collection consistent with pancreatic pseudocyst-no acute intervention planned at this time. Spoke to interventional radiology who said that the collection is not assessable externally. GI consulted - endoscopic transgastric drainage of collection is not available at this facility and patient may need to get this done as an outpatient or transferred. 4.Anastomotic leak-we will continue TPN, will allow water and ice for the moment and monitor output. Would like to make sure that the output returns to minimal as it was prior to discharge at his last admission. We will not advance diet for the moment. Octreotide. 5. Renal failure-dialysis per renal 6. continue abx - ID on board No acute general surgical intervention indicated at this time we will continue to follow. Please call with questions. Subjective Date of service: 03/18/21 Narrative: Patient seen and examined. No acute complaints. States he is feeling well today. No fever today. T-max 100.6 overnight. Objective Vital Signs - 12hr 03/18/21 03/18/21 03/18/21 01:20 01:30 01:40 Temperature Pulse Rate 79 77 74 Pulse Rate [ From Monitor] Respiratory 21 15 15 Rate Blood Pressure 155/79 155/79 155/79 O2 Sat by Pulse 81 L 88 92 Oximetry 03/18/21 03/18/21 03/18/21 01:50 02:00 02:10 Temperature Pulse Rate 75 79 74 Pulse Rate [ From Monitor] Respiratory 12 17 19 Rate Blood Pressure 155/79 160/79 160/79 O2 Sat by Pulse 92 86 94 Oximetry 03/18/21 03/18/21 03/18/21 02:20 02:30 02:40 Temperature Pulse Rate 74 74 76 Pulse Rate [ From Monitor] Respiratory 15 17 24 Rate Blood Pressure 160/79 160/79 160/79 O2 Sat by Pulse 93 92 94 Oximetry 03/18/21 03/18/21 03/18/21 02:50 03:00 03:10 Temperature Pulse Rate 78 76 80 Pulse Rate [ From Monitor] Respiratory 18 19 19 Rate Blood Pressure 160/79 155/83 155/83 O2 Sat by Pulse 93 91 85 Oximetry 03/18/21 03/18/21 03/18/21 03:20 03:30 03:40 Temperature Pulse Rate 73 74 76 Pulse Rate [ From Monitor] Respiratory 19 17 14 Rate Blood Pressure 155/83 155/83 155/83 O2 Sat by Pulse 93 93 87 Oximetry 03/18/21 03/18/21 03/18/21 03:50 04:00 04:10 Temperature 98.1 F Pulse Rate 79 78 76 Pulse Rate [ 76 From Monitor] Respiratory 15 22 22 Rate Blood Pressure 155/83 158/88 158/88 O2 Sat by Pulse 91 Oximetry 03/18/21 03/18/21 03/18/21 04:20 04:30 04:40 Temperature Pulse Rate 84 78 80 Pulse Rate [ From Monitor] Respiratory 13 21 14 Rate Blood Pressure 158/88 155/83 155/83 O2 Sat by Pulse Oximetry 03/18/21 03/18/21 03/18/21 04:50 05:00 05:10 Temperature Pulse Rate 108 H 84 82 Pulse Rate [ From Monitor] Respiratory 23 21 26 H Rate Blood Pressure 155/83 158/88 158/88 O2 Sat by Pulse Oximetry 03/18/21 03/18/21 03/18/21 05:20 05:30 05:40 Temperature Pulse Rate 82 77 82 Pulse Rate [ From Monitor] Respiratory 16 13 14 Rate Blood Pressure 158/88 121/59 121/59 O2 Sat by Pulse Oximetry 03/18/21 03/18/21 03/18/21 05:50 06:00 06:10 Temperature Pulse Rate 78 79 79 Pulse Rate [ From Monitor] Respiratory 15 15 18 Rate Blood Pressure 121/59 128/64 128/64 O2 Sat by Pulse Oximetry 03/18/21 03/18/21 03/18/21 06:20 06:30 06:40 Temperature Pulse Rate 83 77 75 Pulse Rate [ From Monitor] Respiratory 20 22 16 Rate Blood Pressure 128/64 128/64 128/64 O2 Sat by Pulse 85 Oximetry 03/18/21 03/18/21 03/18/21 06:50 07:00 07:10 Temperature 99.4 F Pulse Rate 76 76 76 Pulse Rate [ From Monitor] Respiratory 20 18 17 Rate Blood Pressure 128/64 158/94 158/94 O2 Sat by Pulse 90 89 92 Oximetry 03/18/21 03/18/21 03/18/21 07:20 07:30 07:40 Temperature Pulse Rate 75 76 82 Pulse Rate [ From Monitor] Respiratory 16 16 12 Rate Blood Pressure 158/94 158/94 158/94 O2 Sat by Pulse 95 95 Oximetry 03/18/21 03/18/21 03/18/21 07:50 08:00 08:10 Temperature Pulse Rate 77 79 75 Pulse Rate [ 78 From Monitor] Respiratory 19 22 16 Rate Blood Pressure 158/94 163/87 163/87 O2 Sat by Pulse 95 Oximetry 03/18/21 03/18/21 03/18/21 08:20 08:30 08:40 Temperature Pulse Rate 76 77 79 Pulse Rate [ From Monitor] Respiratory 17 19 20 Rate Blood Pressure 163/87 163/87 163/87 O2 Sat by Pulse 69 L Oximetry 03/18/21 03/18/21 03/18/21 08:49 08:50 09:00 Temperature Pulse Rate 71 71 Pulse Rate [ From Monitor] Respiratory 17 20 Rate Blood Pressure 163/87 163/87 O2 Sat by Pulse 96 96 97 Oximetry 03/18/21 03/18/21 03/18/21 09:10 09:20 09:30 Temperature Pulse Rate 77 75 75 Pulse Rate [ From Monitor] Respiratory 16 16 16 Rate Blood Pressure 163/87 163/87 163/87 O2 Sat by Pulse 98 98 98 Oximetry 03/18/21 03/18/21 03/18/21 09:34 09:40 09:50 Temperature Pulse Rate 78 77 81 Pulse Rate [ From Monitor] Respiratory 20 19 Rate Blood Pressure 163/87 160/92 O2 Sat by Pulse Oximetry 03/18/21 03/18/21 10:00 12:00 Temperature 99.4 F Pulse Rate 79 Pulse Rate [ From Monitor] Respiratory 26 H Rate Blood Pressure 131/71 O2 Sat by Pulse Oximetry - General physical appearance Narrative Exam: Gen.: Awake, alert, oriented x3. No apparent distress ENT: Trachea midline. No lymphadenopathy. No scleral icterus or conjunctival pallor CV: S1, S2 present Respiratory: No audible wheezes Abdomen: Soft, nondistended, nontender. Left-sided G-tube in place with clear serous fluid in tubing. Right-sided HARIS drain dressing soiled. There is yellow stool in the drain. Skin cleansed and new dressing applied. No rebound, rigidity, guarding Extremities: No clubbing, cyanosis, edema - Labs 03/18/21 06:08 03/18/21 06:08 Diabetes panel 03/18/21 Range/Units 06:08 Sodium 138 (137-145) mmol/L Potassium 3.7 (3.6-5.0) mmol/L Chloride 99.3 (98-107) mmol/L Carbon Dioxide 27 (22-30) mmol/L BUN 37 H (9-20) mg/dL Creatinine 5.7 H (0.8-1.3) mg/dL Glucose 123 H (75-100) mg/dL Calcium 8.9 (8.4-10.2) mg/dL AST 65 H (5-40) units/L ALT 180 H (7-56) units/L Alkaline Phosphatase 303 H (35-129) units/L Total Protein 6.2 L (6.3-8.2) g/dL Albumin 2.5 L (3.9-5) g/dL Calcium panel 03/18/21 Range/Units 06:08 Calcium 8.9 (8.4-10.2) mg/dL Phosphorus 2.80 (2.5-4.5) mg/dL Albumin 2.5 L (3.9-5) g/dL Pituitary panel 03/18/21 Range/Units 06:08 Sodium 138 (137-145) mmol/L Potassium 3.7 (3.6-5.0) mmol/L Chloride 99.3 (98-107) mmol/L Carbon Dioxide 27 (22-30) mmol/L BUN 37 H (9-20) mg/dL Creatinine 5.7 H (0.8-1.3) mg/dL Glucose 123 H (75-100) mg/dL Calcium 8.9 (8.4-10.2) mg/dL Adrenal panel 03/18/21 Range/Units 06:08 Sodium 138 (137-145) mmol/L Potassium 3.7 (3.6-5.0) mmol/L Chloride 99.3 (98-107) mmol/L Carbon Dioxide 27 (22-30) mmol/L BUN 37 H (9-20) mg/dL Creatinine 5.7 H (0.8-1.3) mg/dL Glucose 123 H (75-100) mg/dL Calcium 8.9 (8.4-10.2) mg/dL Total Bilirubin 1.30 H (0.1-1.2) mg/dL AST 65 H (5-40) units/L ALT 180 H (7-56) units/L Alkaline Phosphatase 303 H (35-129) units/L Total Protein 6.2 L (6.3-8.2) g/dL Albumin 2.5 L (3.9-5) g/dL
--- NOTE | 2021-03-18 14:32 | Progress Note ---
Assessment and Plan 60-year-old male resident of [facility] with past history of congestive heart failure, hypertension, end-stage renal disease and Crohn's disease with extensive history of multiple abdominal surgeries for Small bowel obstruction/necrotic bowel, controlled anastomotic leak that is transitioning to a fistula presents to the ED with a chief complaint of fever hypoxemia acute respiratory failure. Patient received CT scan in the a.m. for work-up of hypoxemia and was found to have right sided pulmonary embolism. Patient was admitted placed on heparin drip. Patient was also complaining of some abdominal pain of which a CT scan of the abdomen and pelvis showed a 6 cm fluid collection between the stomach and the pancreas suggestive of a pancreatic pseudocyst. A/P -- Altered mental status/acute encephalopathy, improved Multifactorial hypoxemia, uremia with the possibility of acute infectious process -Treat underlying etiology of pulmonary embolism with heparin drip -Optimize oxygenation -Aggressive support of anemia with transfusion with hemodialysis. -Patient will also need hemodialysis as well. --Abdominal pain likely due to pancreatic pseudocyst formation CT scan of the abdomen and pelvis showed a 6 cm fluid collection between the stomach and the pancreas suggestive of a pancreatic pseudocyst. Surgical consult as well GI consult for pancreatic pseudocyst -Provide supportive care with pain control -Above consultations -- Fever with severe sepsis Could be secondary to pulmonary embolism versus other underlying infection Continue to treat underlying cause, follow culture result --Severe sepsis, likely due to underlying fungemia/candidemia Continue empiric antibiotics, ID consulted; follow recommendation --Candidemia, blood cultures growing yeast Started on micafungin, will follow ID recommendation -- Pulmonary embolus IV heparin Supportive care, supplemental oxygenation -- ESRD (end stage renal disease) Patient on hemodialysis, renal consult has been ordered. --Hepatitis B core antibody positive Supportive care, monitor LFT ID and GI consult -- Elevated liver transaminase level Patient markedly elevated transaminase levels since last month. Differential diagnosis includes acute infection with hepatitis B. Patient has hepatitis B core antigen positive IgM. Will place ID consult. --History of ischemic bowel disease with necrotic small bowel s/p small bowel resection and primary anastomosis, requiring right hemicolectomy on 01/03/2021, and multiple other surgeries. Recent CT abdomen pelvis showed no bowel obstruction Patient with 2 intra-abdominal drainage: General surgery consulted Patient also on TPN: Consulted dietary -- Anemia of chronic disease No evidence of acute GI blood loss anemia. s/p 2 units packed red blood cells transfusion --DVT prophylaxis, patient on heparin drip -- Full code status The high probability of a clinically significant, sudden or life threatening deterioration of the [CVS, respiratory, GI] system(s) required my full and direct attention, intervention and personal management. The aggregate critical care time was [33] minutes. This time is in addition to time spent performing reported procedures but includes the following: [x] Data Review and interpretation [x] Patient assessment and monitoring of vital signs [x] Documentation [x] Medication orders and management Daily clinical course: 03/16/21: Hemoglobin 6.0 this morning, continue to transfuse. Monitor H&H carefully while patient on heparin drip. Noted general surgery and IR recommendation. Will consult GI for pancreatic pseudocyst. Continue to follow clinically with supportive care. Blood culture growing yeast we'll also add fluconazole. 03/17/21: Patient receiving hemodialysis, BP appears to be stable, continue empiric antibiotic. Follow ID and GI recommendation. Per general surgery no intervention required for pancreatic pseudocyst. If patient condition return to [facility] may need to transfer to tertiary center for possible drainage. 03/18/21: Continue empiric antibiotics, hemodialysis per nephrology. Continue TPN. Patient H&H remained stable, continue to follow BMP. Transfer out of [facility] to telemetry. Subjective Date of service: 03/18/21 Principal diagnosis: Hypoxia, fever Interval history: Patient seen and examined. Medical records and medication list reviewed. No acute event overnight noted by the RN. Patient denies any chest pain, mental status stable. Discussed plan of care at bedside with patient and with RN. Objective - Exam Narrative Exam: GENERAL: well-developed -[place] male lying on bed appeared to be in no discomfort. HEENT: Normocephalic. Atraumatic. No conjunctival congestion or icterus. Patient has moist mucous membranes. NECK: Supple. Trachea midline. CHEST/LUNGS: Clear to auscultated bilaterally, breathing nonlabored. No wheezes crackles or rhonchi. HEART/CARDIOVASCULAR: Regular in rate and rhythm. S1 and S2 positive. ABDOMEN: Abdomen is soft, with 2 intra-abdominal drainage in place. Patient has normal bowel sounds. SKIN: There is no rash. Warm and dry. NEURO: No focal motor deficit. Follows command. MUSCULOSKELETAL: No joint effusion or tenderness. EXTRIMITY: No edema, no cyanosis or clubbing. PSYCH: Cooperative. - Constitutional Vitals: Vital Signs - 12hr 03/18/21 03/18/21 03/18/21 02:40 02:50 03:00 Temperature Pulse Rate 76 78 76 Pulse Rate [ From Monitor] Respiratory 24 18 19 Rate Blood Pressure 160/79 160/79 155/83 O2 Sat by Pulse 94 93 91 Oximetry 03/18/21 03/18/21 03/18/21 03:10 03:20 03:30 Temperature Pulse Rate 80 73 74 Pulse Rate [ From Monitor] Respiratory 19 19 17 Rate Blood Pressure 155/83 155/83 155/83 O2 Sat by Pulse 85 93 93 Oximetry 03/18/21 03/18/21 03/18/21 03:40 03:50 04:00 Temperature 98.1 F Pulse Rate 76 79 78 Pulse Rate [ 76 From Monitor] Respiratory 14 15 22 Rate Blood Pressure 155/83 155/83 158/88 O2 Sat by Pulse 87 91 Oximetry 03/18/21 03/18/21 03/18/21 04:10 04:20 04:30 Temperature Pulse Rate 76 84 78 Pulse Rate [ From Monitor] Respiratory 22 13 21 Rate Blood Pressure 158/88 158/88 155/83 O2 Sat by Pulse Oximetry 03/18/21 03/18/21 03/18/21 04:40 04:50 05:00 Temperature Pulse Rate 80 108 H 84 Pulse Rate [ From Monitor] Respiratory 14 23 21 Rate Blood Pressure 155/83 155/83 158/88 O2 Sat by Pulse Oximetry 03/18/21 03/18/21 03/18/21 05:10 05:20 05:30 Temperature Pulse Rate 82 82 77 Pulse Rate [ From Monitor] Respiratory 26 H 16 13 Rate Blood Pressure 158/88 158/88 121/59 O2 Sat by Pulse Oximetry 03/18/21 03/18/21 03/18/21 05:40 05:50 06:00 Temperature Pulse Rate 82 78 79 Pulse Rate [ From Monitor] Respiratory 14 15 15 Rate Blood Pressure 121/59 121/59 128/64 O2 Sat by Pulse Oximetry 03/18/21 03/18/21 03/18/21 06:10 06:20 06:30 Temperature Pulse Rate 79 83 77 Pulse Rate [ From Monitor] Respiratory 18 20 22 Rate Blood Pressure 128/64 128/64 128/64 O2 Sat by Pulse Oximetry 03/18/21 03/18/21 03/18/21 06:40 06:50 07:00 Temperature 99.4 F Pulse Rate 75 76 76 Pulse Rate [ From Monitor] Respiratory 16 20 18 Rate Blood Pressure 128/64 128/64 158/94 O2 Sat by Pulse 85 90 89 Oximetry 03/18/21 03/18/21 03/18/21 07:10 07:20 07:30 Temperature Pulse Rate 76 75 76 Pulse Rate [ From Monitor] Respiratory 17 16 16 Rate Blood Pressure 158/94 158/94 158/94 O2 Sat by Pulse 92 95 95 Oximetry 03/18/21 03/18/21 03/18/21 07:40 07:50 08:00 Temperature Pulse Rate 82 77 79 Pulse Rate [ 78 From Monitor] Respiratory 12 19 22 Rate Blood Pressure 158/94 158/94 163/87 O2 Sat by Pulse 95 Oximetry 03/18/21 03/18/21 03/18/21 08:10 08:20 08:30 Temperature Pulse Rate 75 76 77 Pulse Rate [ From Monitor] Respiratory 16 17 19 Rate Blood Pressure 163/87 163/87 163/87 O2 Sat by Pulse Oximetry 03/18/21 03/18/21 03/18/21 08:40 08:49 08:50 Temperature Pulse Rate 79 71 Pulse Rate [ From Monitor] Respiratory 20 17 Rate Blood Pressure 163/87 163/87 O2 Sat by Pulse 69 L 96 96 Oximetry 03/18/21 03/18/21 03/18/21 09:00 09:10 09:20 Temperature Pulse Rate 71 77 75 Pulse Rate [ From Monitor] Respiratory 20 16 16 Rate Blood Pressure 163/87 163/87 163/87 O2 Sat by Pulse 97 98 98 Oximetry 03/18/21 03/18/21 03/18/21 09:30 09:34 09:40 Temperature Pulse Rate 75 78 77 Pulse Rate [ From Monitor] Respiratory 16 20 Rate Blood Pressure 163/87 163/87 O2 Sat by Pulse 98 Oximetry 03/18/21 03/18/21 03/18/21 09:50 10:00 12:00 Temperature 99.4 F Pulse Rate 81 79 Pulse Rate [ From Monitor] Respiratory 19 26 H Rate Blood Pressure 160/92 131/71 O2 Sat by Pulse Oximetry - Labs CBC & Chem 7: 03/21/21 03:23 03/22/21 04:18 Labs: Abnormal lab results 03/15/21 03/17/21 03/18/21 Range/Units 21:30 22:56 05:20 WBC (4.5-11.0) K/mm3 RBC (3.65-5.03) M/mm3 Hgb (11.8-15.2) gm/dl Hct (35.5-45.6) % RDW (13.2-15.2) % Lymph % (Auto) (13.4-35.0) % [place] % (Auto) (0.0-7.3) % [place] # (Auto) (0.0-0.8) K/mm3 Seg Neutrophils # (1.8-7.7) K/mm3 BUN (9-20) mg/dL Creatinine (0.8-1.3) mg/dL Glucose (75-100) mg/dL POC Glucose 106 H 123 H (70-105) mg/dL Total Bilirubin (0.1-1.2) mg/dL Direct Bilirubin (0-0.2) mg/dL AST (5-40) units/L ALT (7-56) units/L Alkaline Phosphatase (35-129) units/L Total Protein (6.3-8.2) g/dL Albumin (3.9-5) g/dL Crossmatch See Detail 03/18/21 03/18/21 03/18/21 Range/Units 06:08 06:08 11:48 WBC 11.5 H (4.5-11.0) K/mm3 RBC 2.61 L (3.65-5.03) M/mm3 Hgb 7.9 L (11.8-15.2) gm/dl Hct 24.3 L (35.5-45.6) % RDW 17.0 H (13.2-15.2) % Lymph % (Auto) 10.9 L (13.4-35.0) % [place] % (Auto) 16.0 H (0.0-7.3) % [place] # (Auto) 1.8 H (0.0-0.8) K/mm3 Seg Neutrophils # 8.0 H (1.8-7.7) K/mm3 BUN 37 H (9-20) mg/dL Creatinine 5.7 H (0.8-1.3) mg/dL Glucose 123 H (75-100) mg/dL POC Glucose 124 H (70-105) mg/dL Total Bilirubin 1.30 H (0.1-1.2) mg/dL Direct Bilirubin 0.4 H (0-0.2) mg/dL AST 65 H (5-40) units/L ALT 180 H (7-56) units/L Alkaline Phosphatase 303 H (35-129) units/L Total Protein 6.2 L (6.3-8.2) g/dL Albumin 2.5 L (3.9-5) g/dL Crossmatch
--- NOTE | 2021-03-18 16:24 | Progress Note ---
Assessment and Plan Assessment - End-stage renal disease on hemodialysis - Anemia of ESRD - Hyperphosphatemia - Fever - Hypoxia Recommendations - Continue HD MWF - Monitor labs and volume status daily and assess need for additional dialysis session - Transfuse for hgb < 7 - Hold epogen during acute process - Check P periodically, currently at goal - Noted surgery evaluation, given extensive surgical h/o and drain in place - ESRD diet with 1.4 g/kg per day protein - Renally dose medication for creatinine clearance less than 15 cc/min Subjective Date of service: 03/18/21 Principal diagnosis: Hypoxia, fever Interval history: Confused this morning. Objective - Exam Narrative Exam: General: No acute distress HEENT: Oral mucosa moist Neck: Supple, no JVD Chest: Clear to auscultation bilaterally Heart: RRR, S1 and S2, no pericardial rub Abdomen: Soft, nontender, no renal bruit Extremity: No peripheral cyanosis, edema Neurological: Awake but confused Dermatology: No skin rash Psych: No agitation Musculoskeletal: No joint effusion - Vital Signs Vital signs: Vital Signs - 12hr 03/18/21 03/18/21 03/18/21 04:30 04:40 04:50 Temperature Pulse Rate 78 80 108 H Pulse Rate [ From Monitor] Respiratory 21 14 23 Rate Blood Pressure 155/83 155/83 155/83 O2 Sat by Pulse Oximetry 03/18/21 03/18/21 03/18/21 05:00 05:10 05:20 Temperature Pulse Rate 84 82 82 Pulse Rate [ From Monitor] Respiratory 21 26 H 16 Rate Blood Pressure 158/88 158/88 158/88 O2 Sat by Pulse Oximetry 03/18/21 03/18/21 03/18/21 05:30 05:40 05:50 Temperature Pulse Rate 77 82 78 Pulse Rate [ From Monitor] Respiratory 13 14 15 Rate Blood Pressure 121/59 121/59 121/59 O2 Sat by Pulse Oximetry 03/18/21 03/18/21 03/18/21 06:00 06:10 06:20 Temperature Pulse Rate 79 79 83 Pulse Rate [ From Monitor] Respiratory 15 18 20 Rate Blood Pressure 128/64 128/64 128/64 O2 Sat by Pulse Oximetry 03/18/21 03/18/21 03/18/21 06:30 06:40 06:50 Temperature Pulse Rate 77 75 76 Pulse Rate [ From Monitor] Respiratory 22 16 20 Rate Blood Pressure 128/64 128/64 128/64 O2 Sat by Pulse 85 90 Oximetry 03/18/21 03/18/21 03/18/21 07:00 07:10 07:20 Temperature 99.4 F Pulse Rate 76 76 75 Pulse Rate [ From Monitor] Respiratory 18 17 16 Rate Blood Pressure 158/94 158/94 158/94 O2 Sat by Pulse 89 92 95 Oximetry 03/18/21 03/18/21 03/18/21 07:30 07:40 07:50 Temperature Pulse Rate 76 82 77 Pulse Rate [ From Monitor] Respiratory 16 12 19 Rate Blood Pressure 158/94 158/94 158/94 O2 Sat by Pulse 95 Oximetry 03/18/21 03/18/21 03/18/21 08:00 08:10 08:20 Temperature Pulse Rate 79 75 76 Pulse Rate [ 78 From Monitor] Respiratory 22 16 17 Rate Blood Pressure 163/87 163/87 163/87 O2 Sat by Pulse 95 Oximetry 03/18/21 03/18/21 03/18/21 08:30 08:40 08:49 Temperature Pulse Rate 77 79 Pulse Rate [ From Monitor] Respiratory 19 20 Rate Blood Pressure 163/87 163/87 O2 Sat by Pulse 69 L 96 Oximetry 03/18/21 03/18/21 03/18/21 08:50 09:00 09:10 Temperature Pulse Rate 71 71 77 Pulse Rate [ From Monitor] Respiratory 17 20 16 Rate Blood Pressure 163/87 163/87 163/87 O2 Sat by Pulse 96 97 98 Oximetry 03/18/21 03/18/21 03/18/21 09:20 09:30 09:34 Temperature Pulse Rate 75 75 78 Pulse Rate [ From Monitor] Respiratory 16 16 Rate Blood Pressure 163/87 163/87 O2 Sat by Pulse 98 98 Oximetry 03/18/21 03/18/21 03/18/21 09:40 09:50 10:00 Temperature Pulse Rate 77 81 79 Pulse Rate [ From Monitor] Respiratory 20 19 26 H Rate Blood Pressure 163/87 160/92 131/71 O2 Sat by Pulse Oximetry 03/18/21 03/18/21 03/18/21 10:10 10:20 10:30 Temperature Pulse Rate 80 77 74 Pulse Rate [ From Monitor] Respiratory 16 25 H 21 Rate Blood Pressure 131/71 131/71 131/71 O2 Sat by Pulse Oximetry 03/18/21 03/18/21 03/18/21 10:40 10:50 11:00 Temperature Pulse Rate 69 68 72 Pulse Rate [ From Monitor] Respiratory 13 13 14 Rate Blood Pressure 131/71 131/71 131/71 O2 Sat by Pulse Oximetry 03/18/21 03/18/21 03/18/21 11:10 11:20 11:30 Temperature Pulse Rate 71 72 70 Pulse Rate [ From Monitor] Respiratory 15 14 18 Rate Blood Pressure 159/84 159/84 O2 Sat by Pulse Oximetry 03/18/21 03/18/21 03/18/21 11:40 11:50 12:00 Temperature 99.4 F Pulse Rate 73 85 89 Pulse Rate [ 75 From Monitor] Respiratory 16 25 H 18 Rate Blood Pressure 159/84 159/84 159/84 O2 Sat by Pulse 70 L Oximetry 03/18/21 03/18/21 03/18/21 12:10 12:20 12:30 Temperature Pulse Rate 73 75 74 Pulse Rate [ From Monitor] Respiratory 16 15 21 Rate Blood Pressure 151/84 151/84 151/84 O2 Sat by Pulse Oximetry 03/18/21 03/18/21 03/18/21 12:40 12:50 13:00 Temperature Pulse Rate 73 75 82 Pulse Rate [ From Monitor] Respiratory 11 L 17 21 Rate Blood Pressure 151/84 151/84 151/84 O2 Sat by Pulse Oximetry 03/18/21 03/18/21 03/18/21 13:10 13:20 13:30 Temperature Pulse Rate 74 81 74 Pulse Rate [ From Monitor] Respiratory 14 23 18 Rate Blood Pressure 151/84 151/84 151/84 O2 Sat by Pulse Oximetry 03/18/21 03/18/21 03/18/21 13:40 13:50 14:00 Temperature Pulse Rate 73 71 69 Pulse Rate [ From Monitor] Respiratory 15 17 18 Rate Blood Pressure 151/84 151/84 151/84 O2 Sat by Pulse Oximetry 03/18/21 03/18/21 03/18/21 14:10 14:20 14:30 Temperature Pulse Rate 72 72 74 Pulse Rate [ From Monitor] Respiratory 15 16 20 Rate Blood Pressure 151/84 151/84 151/84 O2 Sat by Pulse Oximetry 03/18/21 03/18/21 03/18/21 14:40 14:50 15:00 Temperature Pulse Rate 84 73 72 Pulse Rate [ From Monitor] Respiratory 26 H 19 15 Rate Blood Pressure 151/84 151/84 151/84 O2 Sat by Pulse Oximetry - Lab 03/18/21 06:08 03/18/21 06:08 Most recent lab results ABG pH 7.367 (7.320-7.450) 03/15/21 12:54 ABG O2 Saturation 89.9 (0-100) 03/15/21 12:54 Calcium 8.9 mg/dL (8.4-10.2) 03/18/21 06:08 Phosphorus 2.80 mg/dL (2.5-4.5) 03/18/21 06:08 Magnesium 1.90 mg/dL (1.7-2.3) 03/18/21 06:08 Medications & Allergies - Medications Allergies/Adverse Reactions: Allergies No Known Allergies Allergy (Verified 06/09/20 15:27) Home Medications: Home Medications Medication Instructions Recorded Confirmed Last Taken Type Albuterol Mdi (or & Nicu Only) 2 puff IH QID PRN #1 inhalation 04/01/17 03/15/21 10/31/20 09:00 Rx [ProAir HFA Inhaler] Calcium Acetate 667 mg PO DAILY 04/20/20 03/15/21 10/31/20 09:00 History Centrum Men's Tablet 1 tab PO DAILY 04/20/20 03/15/21 10/31/20 09:00 History Cinacalcet 30 mg PO DAILY 04/20/20 03/15/21 10/31/20 09:00 History Dialyvite with Zinc Tablet 1 tab PO DAILY 04/20/20 03/15/21 10/31/20 09:00 History Magnesium 250 mg PO BID 04/20/20 03/15/21 10/31/20 17:00 History Triamcinolone 0.1% 1 1000units TRANSDERMA DAILY 04/20/20 03/15/21 10/31/20 09:00 History Vit B12/Folic Acid/B6/Aa No.15 1,000 mg PO DAILY 04/20/20 03/15/21 10/31/20 09:00 History amLODIPine 10 mg PO DAILY 06/09/20 03/15/21 10/31/20 09:00 History AtorvaSTATin 40 mg PO HS 11/01/20 03/15/21 10/31/20 21:00 History Benadryl 25 mg PO HS 11/01/20 03/15/21 10/31/20 21:00 History Diclofenac 1 applic TRANSDERMA QID 11/01/20 03/15/21 10/31/20 19:00 History Vitamin D3 2,000 units PO QDAY 11/01/20 03/15/21 10/31/20 09:00 History carvediloL 12.5 mg PO DAILY 11/01/20 03/15/21 10/31/20 09:00 History hydrALAZINE 100 mg PO TID 11/01/20 03/15/21 10/31/20 19:00 History Fluticasone Propionate 1 spray INTRANASAL DAILY #1 02/21/21 03/15/21 Unknown Rx HYDROcodone/ACETAMINOPHEN 15 ml PO Q6H PRN #150 ml 02/21/21 03/15/21 Unknown Rx [Hydrocodon-Acetamin 7.5-325/15] Insulin Glargine [Lantus VIAL] 5 units SUB-Q QHS #1 units 02/21/21 03/15/21 Unknown Rx Lispro Insulin [HumaLOG] See Protocol SUB-Q Q6HR #1 vial 02/21/21 03/15/21 Unknown Rx Scopolamine [Transderm-Scop] 1 each TD Q3D #10 patch 02/21/21 03/15/21 Unknown Rx cloNIDine-TTS PATCH [Catapres-Tts 0.2 mg TD We #30 patch 02/21/21 03/15/21 Unknown Rx 0.2mg Patch] Active Medications: Generic Name Dose Route Start Last Admin Trade Name Freq PRN Reason Stop Dose Admin Acetaminophen 650 mg 03/15/21 19:31 03/17/21 20:29 Acetaminophen 325 Mg Tab PO 650 mg Q4H PRN Administration Pain MILD(1-3)/Fever >100.5/HULL Hydrocodone Bitart/Acetaminophen 7.5 mg 03/15/21 19:39 Hydrocodone/Acetaminophen 7.2-520tl-54ll Oral Liqd PO Q6H PRN Pain , Severe (7-10) Albuterol 2.5 mg 03/15/21 19:31 Albuterol 2.5 Mg/3 Ml Nebu IH Q4HRT PRN Shortness Of Breath Calcium Acetate 667 mg 03/16/21 10:00 03/18/21 09:34 Calcium Acetate 667 Mg Cap PO 667 mg DAILY THOMAS Administration Carvedilol 12.5 mg 03/16/21 10:00 03/18/21 09:34 Carvedilol 12.5 Mg Tab PO 12.5 mg DAILY THOMAS Administration Cholecalciferol 2,000 unit 03/16/21 10:00 03/18/21 09:34 Cholecalciferol (Vit D3) 1000 Unit (25 Mcg) Tab PO 2,000 unit QDAY THOMAS Administration Dextrose 50 ml 03/15/21 19:46 Dextrose 50% In Water (25gm) 50 Ml Syringe IV Q30MIN PRN Hypoglycemia Protocol Famotidine 10 mg 03/15/21 22:00 03/18/21 09:34 Famotidine 20 Mg/2 Ml Inj IV 10 mg BID THOMAS Administration Heparin Sodium (Porcine) 3,200 unit 03/15/21 17:16 03/17/21 14:35 Heparin 10,000 Units/10 Ml Vial 40 unit/kg (3200 unit) 3,200 unit IV Administration Q6H PRN Anti-Xa Assay<0.1 units/ml Hydromorphone HCl 0.5 mg 03/15/21 19:31 Hydromorphone 1 Mg/1 Ml Inj IV Q3H PRN Pain , Severe (7-10) Sodium Chloride 100 mls @ 999 mls/hr 03/15/21 16:00 Nacl 0.9% IV [place] PRN Hypotension Heparin Sodium/Sodium Chloride 25,000 unit in 500 mls @ 23 mls/hr 03/16/21 07:00 03/18/21 11:48 Heparin/ 0.45% Nacl-25,000 Unit/500 Ml IV 1,650 units/hr TITR THOMAS 33 mls/hr Administration Protocol 1,150 UNITS/HR Micafungin Sodium 100 mg/ 100 mls @ 100 mls/hr 03/16/21 19:00 03/17/21 20:35 Sodium Chloride IV 100 mls/hr Q24H THOMAS Administration Protocol Amino Acids/Electrolytes/Dextrose 1,800 mls @ 75 mls/hr 03/17/21 20:00 03/17/21 20:31 Tpn Adult IV 03/18/21 19:59 75 mls/hr DAILY@2000 THOMAS Administration Protocol Octreotide Acetate 50 mcg/ 51 mls @ 100 mls/hr 03/17/21 14:00 03/18/21 16:16 Sodium Chloride IV 100 mls/hr Q8HR THOMAS Administration Amino Acids/Electrolytes/Dextrose 1,800 mls @ 75 mls/hr 03/18/21 20:00 Tpn Adult IV 03/19/21 19:59 DAILY@1999 [facility] Protocol Insulin Human Regular 0 units 03/15/21 20:00 03/18/21 15:08 Insulin Regular, Human 100 Units/1 Ml SUB-Q Not Given Q6H [facility] Protocol Magnesium Oxide 400 mg 03/16/21 10:00 03/18/21 09:34 Magnesium Oxide 400 Mg Tab PO 400 mg QDAY THOMAS Administration Morphine Sulfate 2 mg 03/15/21 19:31 03/16/21 13:27 Morphine 2 Mg/1 Ml Inj IV 2 mg Q4H PRN Administration Pain, Moderate (4-6) Ondansetron HCl 4 mg 03/15/21 19:31 Ondansetron 4 Mg/2 Ml Inj IV Q8H PRN Nausea And Vomiting Scopolamine 1 each 03/16/21 10:00 03/16/21 10:43 Scopolamine Transdermal Patch 72 Hr TD 1 each Q3D THOMAS Administration Sodium Chloride 10 ml 03/15/21 22:00 03/18/21 09:34 Sodium Chloride 0.9% 10 Ml Flush Syringe IV 10 ml BID THOMAS Administration Sodium Chloride 10 ml 03/15/21 20:31 Sodium Chloride 0.9% 10 Ml Flush Syringe IV PRN PRN LINE FLUSH
[2021-03-18] MEDS: MICAFUNGIN 100 MG in SODIUM CHLORIDE 0.9% 100 ML IV SCH (18:28)
[2021-03-18] MEDS ORDERED: TOTAL PARENTERAL NUTRITION 1,800 ML IV SCH (20:00)
[2021-03-19] MEDS: HEPARIN/ 0.45% NACL DRIP 25,000 UNIT/500 ML BAG IV SCH ×2 (03:22→17:13)
[2021-03-19 05:11] LABS: Basophils # (Auto) 0.1 K/mm3 (0.0-0.1); Basophils % (Auto) 0.5 % (0.0-1.8); Eosinophils # (Auto) 0.4 K/mm3 (0.0-0.4); Eosinophils % (Auto) 3.4 % (0.0-4.3); Hemoglobin 7.2 gm/dl (11.8-15.2); Lymphocytes # (Auto) 1.5 K/mm3 (1.2-5.4); Lymphocytes % (Auto) 12.9 % (13.4-35.0); Mean Corpuscular HGB Conc 33 % (32-34); Mean Corpuscular Volume 92 fl (84-94); Monocytes # (Auto) 1.3 K/mm3 (0.0-0.8); Monocytes % (Auto) 10.7 % (0.0-7.3); Platelet Count 280 K/mm3 (140-440); Red Cell Distribution Width 16.5 % (13.2-15.2)
[2021-03-19 05:27] LABS: Calcium 8.5 mg/dL (8.4-10.2)
[2021-03-19] MEDS ORDERED: HALOPERIDOL LACTATE 5 MG/1 ML INJ ONE (06:20)
[2021-03-19] MEDS ORDERED: HALOPERIDOL LACTATE 5 MG/1 ML INJ IM ONE (06:20)
[2021-03-19] MEDS: INSULIN REGULAR, HUMAN 100 UNITS/1 ML SUB-Q SCH ×5 (06:32→21:20)
[2021-03-19] MEDS: OCTREOTIDE 50 MCG in SODIUM CHLORIDE 0.9% 50 ML IV SCH ×3 (06:42→21:19)
[2021-03-19] MEDS: SCOPOLAMINE TRANSDERMAL PATCH 72 HR TD SCH (09:35)
[2021-03-19] MEDS: FAMOTIDINE 20 MG/2 ML INJ IV SCH ×2 (09:35→21:19)
[2021-03-19] MEDS: CALCIUM ACETATE 667 MG CAP PO SCH (09:36)
[2021-03-19] MEDS: carvediloL 12.5 MG TAB PO SCH (09:36)
[2021-03-19] MEDS: CHOLECALCIFEROL (VIT D3) 1000 UNIT (25 mcg) TAB PO SCH (09:36)
[2021-03-19] MEDS: MAGNESIUM OXIDE 400 MG TAB PO SCH (09:36)
--- NOTE | 2021-03-19 15:23 | Progress Note ---
Assessment and Plan 60-year-old male resident of [facility] with past history of congestive heart failure, hypertension, end-stage renal disease and Crohn's disease with extensive history of multiple abdominal surgeries for Small bowel obstruction/necrotic bowel, controlled anastomotic leak that is transitioning to a fistula presents to the ED with a chief complaint of fever hypoxemia acute respiratory failure. Patient received CT scan in the a.m. for work-up of hypoxemia and was found to have right sided pulmonary embolism. Patient was admitted placed on heparin drip. Patient was also complaining of some abdominal pain of which a CT scan of the abdomen and pelvis showed a 6 cm fluid collection between the stomach and the pancreas suggestive of a pancreatic pseudocyst. A/P -- Altered mental status/acute encephalopathy, improved Multifactorial hypoxemia, uremia with the possibility of acute infectious process -Treat underlying etiology of pulmonary embolism with heparin drip -Optimize oxygenation -Aggressive support of anemia with transfusion with hemodialysis. -Patient will also need hemodialysis as well. --Abdominal pain likely due to pancreatic pseudocyst formation CT scan of the abdomen and pelvis showed a 6 cm fluid collection between the stomach and the pancreas suggestive of a pancreatic pseudocyst. Surgical consult as well GI consult for pancreatic pseudocyst -Provide supportive care with pain control -Above consultations -- Fever with severe sepsis Could be secondary to pulmonary embolism versus other underlying infection Continue to treat underlying cause, follow culture result --Severe sepsis, likely due to underlying fungemia/candidemia Continue empiric antibiotics, ID consulted; follow recommendation --Candidemia, blood cultures growing yeast Started on micafungin, will follow ID recommendation -- Pulmonary embolus IV heparin Supportive care, supplemental oxygenation -- ESRD (end stage renal disease) Patient on hemodialysis, renal consult has been ordered. --Hepatitis B core antibody positive Supportive care, monitor LFT ID and GI consult -- Elevated liver transaminase level Patient markedly elevated transaminase levels since last month. Differential diagnosis includes acute infection with hepatitis B. Patient has hepatitis B core antigen positive IgM. Will place ID consult. --History of ischemic bowel disease with necrotic small bowel s/p small bowel resection and primary anastomosis, requiring right hemicolectomy on 01/03/2021, and multiple other surgeries. Recent CT abdomen pelvis showed no bowel obstruction Patient with 2 intra-abdominal drainage: General surgery consulted Patient also on TPN: Consulted dietary -- Anemia of chronic disease No evidence of acute GI blood loss anemia. s/p 2 units packed red blood cells transfusion --DVT prophylaxis, patient on heparin drip -- Full code status --Patient is critically ill Daily clinical course: 03/16/21: Hemoglobin 6.0 this morning, continue to transfuse. Monitor H&H carefully while patient on heparin drip. Noted general surgery and IR recommendation. Will consult GI for pancreatic pseudocyst. Continue to follow clinically with supportive care. Blood culture growing yeast we'll also add fluconazole. 03/17/21: Patient receiving hemodialysis, BP appears to be stable, continue empiric antibiotic. Follow ID and GI recommendation. Per general surgery no intervention required for pancreatic pseudocyst. If patient condition return to BX may need to transfer to tertiary center for possible drainage. 03/18/21: Continue empiric antibiotics, hemodialysis per nephrology. Continue TPN. Patient H&H remained stable, continue to follow BMP. Transfer out of IM to telemetry. 03/19/21: Patient transferred to telemetry today. H&H remained stable. White count slightly elevated, will follow CBC. Repeat blood culture from 03/16/21 having no growth. Continue empiric antibiotics per ID and TPN. Discharge planning per general surgery and ID recommendation. Patient intermittently refusing care; counseled extensively he verbalized understanding and promised to follow hospital protocol and MD recommendations Subjective Date of service: 03/19/21 Principal diagnosis: Hypoxia, fever Interval history: Patient seen and examined. Medical records and medication list reviewed. No acute event overnight noted by the RN. Patient denies any chest pain, mental status stable. Discussed plan of care at bedside with patient and with RN. Objective - Exam Narrative Exam: GENERAL: well-developed -N[place]alese male lying on bed appeared to be in no discomfort. HEENT: Normocephalic. Atraumatic. No conjunctival congestion or icterus. Patient has moist mucous membranes. NECK: Supple. Trachea midline. CHEST/LUNGS: Clear to auscultated bilaterally, breathing nonlabored. No wheezes crackles or rhonchi. HEART/CARDIOVASCULAR: Regular in rate and rhythm. S1 and S2 positive. ABDOMEN: Abdomen is soft, with 2 intra-abdominal drainage in place. Patient has normal bowel sounds. SKIN: There is no rash. Warm and dry. NEURO: No focal motor deficit. Follows command. MUSCULOSKELETAL: No joint effusion or tenderness. EXTRIMITY: No edema, no cyanosis or clubbing. PSYCH: Cooperative. - Constitutional Vitals: Vital Signs - 12hr 03/19/21 03/19/21 03/19/21 03:30 04:00 04:30 Temperature 98.4 F Pulse Rate 70 71 71 Pulse Rate [ 79 From Monitor] Respiratory 15 15 15 Rate Blood Pressure 143/89 150/98 150/98 O2 Sat by Pulse 98 96 92 Oximetry 03/19/21 03/19/21 03/19/21 05:00 05:30 06:00 Temperature Pulse Rate 71 91 H 75 Pulse Rate [ 79 From Monitor] Respiratory 14 16 13 Rate Blood Pressure 120/88 120/88 152/82 O2 Sat by Pulse 93 83 L Oximetry 03/19/21 03/19/21 03/19/21 06:30 07:00 07:30 Temperature Pulse Rate 75 76 79 Pulse Rate [ From Monitor] Respiratory 14 12 16 Rate Blood Pressure 152/82 147/74 147/74 O2 Sat by Pulse Oximetry 03/19/21 03/19/21 03/19/21 08:00 08:30 09:00 Temperature Pulse Rate 76 75 77 Pulse Rate [ 78 From Monitor] Respiratory 16 15 13 Rate Blood Pressure 147/74 147/74 175/100 O2 Sat by Pulse 96 Oximetry 03/19/21 03/19/21 03/19/21 09:26 09:30 09:36 Temperature 98.2 F Pulse Rate 74 76 Pulse Rate [ From Monitor] Respiratory 16 Rate Blood Pressure 175/100 175/100 O2 Sat by Pulse Oximetry 03/19/21 03/19/21 03/19/21 10:00 10:30 11:00 Temperature Pulse Rate 76 71 75 Pulse Rate [ From Monitor] Respiratory 22 16 16 Rate Blood Pressure 152/94 152/94 174/101 O2 Sat by Pulse Oximetry 03/19/21 03/19/21 03/19/21 11:35 12:00 12:33 Temperature Pulse Rate 83 79 Pulse Rate [ 78 From Monitor] Respiratory 14 17 Rate Blood Pressure 174/101 174/101 O2 Sat by Pulse 46 L 89 Oximetry 03/19/21 03/19/21 03/19/21 13:00 13:14 13:30 Temperature 98.2 F Pulse Rate 74 72 Pulse Rate [ From Monitor] Respiratory 20 17 Rate Blood Pressure 172/93 172/93 O2 Sat by Pulse 94 Oximetry - Labs CBC & Chem 7: 03/21/21 03:23 03/22/21 04:18 Labs: Abnormal lab results 03/15/21 03/18/21 03/19/21 Range/Units 11:23 20:54 04:17 WBC 11.9 H (4.5-11.0) K/mm3 RBC 2.24 L 2.40 L (3.65-5.03) M/mm3 Hgb 6.7 L 7.2 L (11.8-15.2) gm/dl Hct 20.1 L 22.0 L (35.5-45.6) % RDW 16.4 H 16.5 H (13.2-15.2) % Lymph % (Auto) 12.9 L (13.4-35.0) % [place] % (Auto) 10.7 H (0.0-7.3) % [place] # (Auto) 1.3 H (0.0-0.8) K/mm3 Seg Neutrophils % 72.5 H (40.0-70.0) % Seg Neuts % (Manual) 78.0 H (40.0-70.0) % Lymphocytes % (Manual) 2.0 L (13.4-35.0) % Seg Neutrophils # 8.6 H (1.8-7.7) K/mm3 Lymphocytes # (Manual) 0.1 L (1.2-5.4) K/mm3 Heparin Anti-Xa Level 0.24 L (0.3-0.7) U.I./ml Sodium (137-145) mmol/L Chloride (98-107) mmol/L BUN (9-20) mg/dL Creatinine (0.8-1.3) mg/dL Glucose (75-100) mg/dL POC Glucose (70-105) mg/dL 03/19/21 03/19/21 03/19/21 Range/Units 04:17 06:19 09:33 WBC (4.5-11.0) K/mm3 RBC (3.65-5.03) M/mm3 Hgb (11.8-15.2) gm/dl Hct (35.5-45.6) % RDW (13.2-15.2) % Lymph % (Auto) (13.4-35.0) % [place] % (Auto) (0.0-7.3) % [place] # (Auto) (0.0-0.8) K/mm3 Seg Neutrophils % (40.0-70.0) % Seg Neuts % (Manual) (40.0-70.0) % Lymphocytes % (Manual) (13.4-35.0) % Seg Neutrophils # (1.8-7.7) K/mm3 Lymphocytes # (Manual) (1.2-5.4) K/mm3 Heparin Anti-Xa Level (0.3-0.7) U.I./ml Sodium 135 L (137-145) mmol/L Chloride 97.9 L (98-107) mmol/L BUN 53 H (9-20) mg/dL Creatinine 8.2 H (0.8-1.3) mg/dL Glucose 134 H (75-100) mg/dL POC Glucose 112 H 132 H (70-105) mg/dL 03/19/21 03/19/21 Range/Units 09:48 14:09 WBC (4.5-11.0) K/mm3 RBC (3.65-5.03) M/mm3 Hgb (11.8-15.2) gm/dl Hct (35.5-45.6) % RDW (13.2-15.2) % Lymph % (Auto) (13.4-35.0) % [place] % (Auto) (0.0-7.3) % [place] # (Auto) (0.0-0.8) K/mm3 Seg Neutrophils % (40.0-70.0) % Seg Neuts % (Manual) (40.0-70.0) % Lymphocytes % (Manual) (13.4-35.0) % Seg Neutrophils # (1.8-7.7) K/mm3 Lymphocytes # (Manual) (1.2-5.4) K/mm3 Heparin Anti-Xa Level 0.20 L (0.3-0.7) U.I./ml Sodium (137-145) mmol/L Chloride (98-107) mmol/L BUN (9-20) mg/dL Creatinine (0.8-1.3) mg/dL Glucose (75-100) mg/dL POC Glucose 118 H (70-105) mg/dL
[2021-03-19] MEDS ORDERED: TOTAL PARENTERAL NUTRITION 1,800 ML IV SCH (20:00)
[2021-03-19] MEDS: MICAFUNGIN 100 MG in SODIUM CHLORIDE 0.9% 100 ML IV SCH (21:19)
--- NOTE | 2021-03-19 21:19 | Progress Note ---
Assessment and Plan Assessment - End-stage renal disease on hemodialysis - Anemia of ESRD - Hyperphosphatemia - Sepsis - Fungemia Recommendations - Blood culture resulted positive for she today, will need line holiday and catheter removal - Will order catheter removal for tomorrow - Plan for dialysis prior to removal to assist with line holiday - Transfuse for hgb < 7 - Epogen with HD - Check P periodically, currently at goal - Noted surgery evaluation, given extensive surgical h/o and drain in place - ESRD diet with 1.4 g/kg per day protein - Renally dose medication for creatinine clearance less than 15 cc/min - Abx as per ID Subjective Date of service: 03/19/21 Principal diagnosis: Hypoxia, fever Interval history: Mentation improved this morning. Objective - Exam Narrative Exam: General: No acute distress HEENT: Oral mucosa moist Neck: Supple, no JVD Chest: Clear to auscultation bilaterally Heart: RRR, S1 and S2, no pericardial rub Abdomen: Soft, nontender, no renal bruit Extremity: No peripheral cyanosis, edema Neurological: Awake and alert Dermatology: No skin rash Psych: No agitation Musculoskeletal: No joint effusion - Vital Signs Vital signs: Vital Signs - 12hr 03/19/21 03/19/21 03/19/21 09:26 09:30 09:36 Temperature 98.2 F Pulse Rate 74 76 Pulse Rate [ From Monitor] Respiratory 16 Rate Blood Pressure 175/100 175/100 O2 Sat by Pulse Oximetry 03/19/21 03/19/21 03/19/21 10:00 10:30 11:00 Temperature Pulse Rate 76 71 75 Pulse Rate [ From Monitor] Respiratory 22 16 16 Rate Blood Pressure 152/94 152/94 174/101 O2 Sat by Pulse Oximetry 03/19/21 03/19/21 03/19/21 11:35 12:00 12:33 Temperature Pulse Rate 83 79 Pulse Rate [ 78 From Monitor] Respiratory 14 17 Rate Blood Pressure 174/101 174/101 O2 Sat by Pulse 46 L 89 Oximetry 03/19/21 03/19/21 03/19/21 13:00 13:14 13:30 Temperature 98.2 F Pulse Rate 74 72 Pulse Rate [ From Monitor] Respiratory 20 17 Rate Blood Pressure 172/93 172/93 O2 Sat by Pulse 94 Oximetry 03/19/21 03/19/21 03/19/21 14:00 14:30 15:00 Temperature Pulse Rate 78 70 70 Pulse Rate [ From Monitor] Respiratory 15 15 15 Rate Blood Pressure 172/93 169/94 169/94 O2 Sat by Pulse Oximetry 03/19/21 03/19/21 03/19/21 15:30 16:00 16:34 Temperature 98.3 F Pulse Rate 77 71 Pulse Rate [ 78 From Monitor] Respiratory 19 14 Rate Blood Pressure 167/89 167/89 O2 Sat by Pulse 96 Oximetry 03/19/21 03/19/21 03/19/21 18:10 19:51 20:00 Temperature 98.2 F Pulse Rate 72 Pulse Rate [ From Monitor] Respiratory Rate Blood Pressure O2 Sat by Pulse 96 Oximetry - Lab 03/19/21 04:17 03/19/21 04:17 Most recent lab results ABG pH 7.367 (7.320-7.450) 03/15/21 12:54 ABG O2 Saturation 89.9 (0-100) 03/15/21 12:54 Calcium 8.5 mg/dL (8.4-10.2) 03/19/21 04:17 Phosphorus 2.90 mg/dL (2.5-4.5) 03/19/21 04:17 Magnesium 2.00 mg/dL (1.7-2.3) 03/19/21 04:17 Medications & Allergies - Medications Allergies/Adverse Reactions: Allergies No Known Allergies Allergy (Verified 06/09/20 15:27) Home Medications: Home Medications Medication Instructions Recorded Confirmed Last Taken Type Albuterol Mdi (or & Nicu Only) 2 puff IH QID PRN #1 inhalation 04/01/17 03/15/21 10/31/20 09:00 Rx [ProAir HFA Inhaler] Calcium Acetate 667 mg PO DAILY 04/20/20 03/15/21 10/31/20 09:00 History Centrum Men's Tablet 1 tab PO DAILY 04/20/20 03/15/21 10/31/20 09:00 History Cinacalcet 30 mg PO DAILY 04/20/20 03/15/21 10/31/20 09:00 History Dialyvite with Zinc Tablet 1 tab PO DAILY 04/20/20 03/15/21 10/31/20 09:00 History Magnesium 250 mg PO BID 04/20/20 03/15/21 10/31/20 17:00 History Triamcinolone 0.1% 1 1000units TRANSDERMA DAILY 04/20/20 03/15/21 10/31/20 09:00 History Vit B12/Folic Acid/B6/Aa No.15 1,000 mg PO DAILY 04/20/20 03/15/21 10/31/20 09:00 History amLODIPine 10 mg PO DAILY 06/09/20 03/15/21 10/31/20 09:00 History AtorvaSTATin 40 mg PO HS 11/01/20 03/15/21 10/31/20 21:00 History Benadryl 25 mg PO HS 11/01/20 03/15/21 10/31/20 21:00 History Diclofenac 1 applic TRANSDERMA QID 11/01/20 03/15/21 10/31/20 19:00 History Vitamin D3 2,000 units PO QDAY 11/01/20 03/15/21 10/31/20 09:00 History carvediloL 12.5 mg PO DAILY 11/01/20 03/15/21 10/31/20 09:00 History hydrALAZINE 100 mg PO TID 11/01/20 03/15/21 10/31/20 19:00 History Fluticasone Propionate 1 spray INTRANASAL DAILY #1 02/21/21 03/15/21 Unknown Rx HYDROcodone/ACETAMINOPHEN 15 ml PO Q6H PRN #150 ml 02/21/21 03/15/21 Unknown Rx [Hydrocodon-Acetamin 7.5-325/15] Insulin Glargine [Lantus VIAL] 5 units SUB-Q QHS #1 units 02/21/21 03/15/21 Unknown Rx Lispro Insulin [HumaLOG] See Protocol SUB-Q Q6HR #1 vial 02/21/21 03/15/21 Un known Rx Scopolamine [Transderm-Scop] 1 each TD Q3D #10 patch 02/21/21 03/15/21 Unknown Rx cloNIDine-TTS PATCH [Catapres-Tts 0.2 mg TD We #30 patch 02/21/21 03/15/21 Unknown Rx 0.2mg Patch] Active Medications: Generic Name Dose Route Start Last Admin Trade Name Freq PRN Reason Stop Dose Admin Acetaminophen 650 mg 03/15/21 19:31 03/17/21 20:29 Acetaminophen 325 Mg Tab PO 650 mg Q4H PRN Administration Pain MILD(1-3)/Fever >100.5/HULL Hydrocodone Bitart/Acetaminophen 7.5 mg 03/15/21 19:39 Hydrocodone/Acetaminophen [id number] Oral Liqd PO Q6H PRN Pain , Severe (7-10) Albuterol 2.5 mg 03/15/21 19:31 Albuterol 2.5 Mg/3 Ml Nebu IH Q4HRT PRN Shortness Of Breath Calcium Acetate 667 mg 03/16/21 10:00 03/19/21 09:36 Calcium Acetate 667 Mg Cap PO Not Given DAILY [facility] Carvedilol 12.5 mg 03/16/21 10:00 03/19/21 09:36 Carvedilol 12.5 Mg Tab PO Not Given DAILY [facility] Cholecalciferol 2,000 unit 03/16/21 10:00 03/19/21 09:36 Cholecalciferol (Vit D3) 1000 Unit (25 Mcg) Tab PO Not Given QDAY [facility] Dextrose 50 ml 03/15/21 19:46 Dextrose 50% In Water (25gm) 50 Ml Syringe IV Q30MIN PRN Hypoglycemia Protocol Famotidine 10 mg 03/15/21 22:00 03/19/21 09:35 Famotidine 20 Mg/2 Ml Inj IV 10 mg BID [facility] Administration Heparin Sodium (Porcine) 3,200 unit 03/15/21 17:16 03/17/21 14:35 Heparin 10,000 Units/10 Ml Vial 40 unit/kg (3200 unit) 3,200 unit IV Administration Q6H PRN Anti-Xa Assay<0.1 units/ml Hydromorphone HCl 0.5 mg 03/15/21 19:31 Hydromorphone 1 Mg/1 Ml Inj IV Q3H PRN Pain , Severe (7-10) Sodium Chloride 100 mls @ 999 mls/hr 03/15/21 16:00 Nacl 0.9% IV [place] PRN Hypotension Heparin Sodium/Sodium Chloride 25,000 unit in 500 mls @ 23 mls/hr 03/16/21 07:00 03/19/21 20:37 Heparin/ 0.45% Nacl-25,000 Unit/500 Ml IV 1,950 units/hr TITR [facility]OMAS 39 mls/hr Titration Protocol 1,150 UNITS/HR Micafungin Sodium 100 mg/ 100 mls @ 100 mls/hr 03/16/21 19:00 03/18/21 18:28 Sodium Chloride IV 100 mls/hr Q24H [facility] Administration Protocol Octreotide Acetate 50 mcg/ 51 mls @ 100 mls/hr 03/17/21 14:00 03/19/21 15:30 Sodium Chloride IV 100 mls/hr Q8HR [facility] Administration Amino Acids/Electrolytes/Dextrose 1,800 mls @ 75 mls/hr 03/19/21 20:00 Tpn Adult IV 03/20/21 19:59 DAILY@1999 [facility] Protocol Insulin Human Regular 0 units 03/15/21 20:00 03/19/21 15:29 Insulin Regular, Human 100 Units/1 Ml SUB-Q Not Given Q6H [facility] Protocol Magnesium Oxide 400 mg 03/16/21 10:00 03/19/21 09:36 Magnesium Oxide 400 Mg Tab PO Not Given QDAY [facility] Morphine Sulfate 2 mg 03/15/21 19:31 03/16/21 13:27 Morphine 2 Mg/1 Ml Inj IV 2 mg Q4H PRN Administration Pain, Moderate (4-6) Ondansetron HCl 4 mg 03/15/21 19:31 Ondansetron 4 Mg/2 Ml Inj IV Q8H PRN Nausea And Vomiting Scopolamine 1 each 03/16/21 10:00 03/19/21 09:35 Scopolamine Transdermal Patch 72 Hr TD 1 each Q3D [facility] Administration Sodium Chloride 10 ml 03/15/21 22:00 03/19/21 10:28 Sodium Chloride 0.9% 10 Ml Flush Syringe IV 10 ml BID [facility]OMAS Administration Sodium Chloride 10 ml 03/15/21 20:31 Sodium Chloride 0.9% 10 Ml Flush Syringe IV PRN PRN LINE FLUSH
[2021-03-20] MEDS: INSULIN REGULAR, HUMAN 100 UNITS/1 ML SUB-Q SCH ×4 (02:18→21:50)
[2021-03-20 03:59] LABS: Calcium 8.8 mg/dL (8.4-10.2)
[2021-03-20] MEDS: OCTREOTIDE 50 MCG in SODIUM CHLORIDE 0.9% 50 ML IV SCH ×3 (05:09→22:05)
[2021-03-20] MEDS: HEPARIN/ 0.45% NACL DRIP 25,000 UNIT/500 ML BAG IV SCH (05:58)
[2021-03-20] MEDS: FAMOTIDINE 20 MG/2 ML INJ IV SCH ×2 (10:00→22:38)
[2021-03-20] MEDS: CHOLECALCIFEROL (VIT D3) 1000 UNIT (25 mcg) TAB PO SCH (10:00)
[2021-03-20] MEDS: CALCIUM ACETATE 667 MG CAP PO SCH (10:00)
--- NOTE | 2021-03-20 10:20 | Progress Note ---
Assessment and Plan Assessment * End-stage renal disease on hemodialysis * Sepsis * Candidemia * Hypertension * Anemia secondary to ESRD * Secondary hyperparathyroidism Recommendations * Hemodialysis today - UF as tolerated * IR consulted for permcath removal - remove following HD today * ID following - antifungal per ID * Epogen TIW prn Subjective Date of service: 03/20/21 Principal diagnosis: Hypoxia, fever Interval history: Patient seen on dialysis. Objective - Vital Signs Vital signs: Vital Signs - 12hr 03/19/21 03/19/21 03/19/21 23:00 23:10 23:30 Temperature Pulse Rate 74 78 70 Respiratory 17 22 9 L Rate Blood Pressure 163/95 170/95 170/95 O2 Sat by Pulse 96 93 Oximetry 03/20/21 03/20/21 03/20/21 00:15 04:55 08:39 Temperature 98.2 F 98.3 F Pulse Rate 73 72 86 Respiratory 18 20 Rate Blood Pressure 176/88 164/87 O2 Sat by Pulse 98 96 Oximetry 03/20/21 08:48 Temperature 97.4 F L Pulse Rate 70 Respiratory 19 Rate Blood Pressure 177/98 O2 Sat by Pulse 92 Oximetry - General Appearance General appearance: well-developed, well-nourished EENT: ATNC Respiratory: Present: Clear to Ascultation Cardiology: regular, S1S2 Gastrointestinal: Integumentary: no rash, warm and dry Neurologic: no focal deficit Psychiatric: cooperative - Lab 03/21/21 03:23 03/21/21 03:23 Most recent lab results ABG pH 7.367 (7.320-7.450) 03/15/21 12:54 ABG O2 Saturation 89.9 (0-100) 03/15/21 12:54 Calcium 8.8 mg/dL (8.4-10.2) 03/20/21 02:28 Phosphorus 3.20 mg/dL (2.5-4.5) 03/20/21 02:28 Magnesium 2.20 mg/dL (1.7-2.3) 03/20/21 02:28 Medications & Allergies - Medications Allergies/Adverse Reactions: Allergies No Known Allergies Allergy (Verified 06/09/20 15:27) Home Medications: Home Medications Medication Instructions Recorded Confirmed Last Taken Type Albuterol Mdi (or & Nicu Only) 2 puff IH QID PRN #1 inhalation 08/0703/15/21 10/31/20 09:00 Rx [ProAir HFA Inhaler] Calcium Acetate 667 mg PO DAILY 04/20/20 03/15/21 10/31/20 09:00 History Centrum Men's Tablet 1 tab PO DAILY 04/20/20 03/15/21 10/31/20 09:00 History Cinacalcet 30 mg PO DAILY 04/20/20 03/15/21 10/31/20 09:00 History Dialyvite with Zinc Tablet 1 tab PO DAILY 04/20/20 03/15/21 10/31/20 09:00 History Magnesium 250 mg PO BID 04/20/20 03/15/21 10/31/20 17:00 History Triamcinolone 0.1% 1 1000units TRANSDERMA DAILY 04/20/20 03/15/21 10/31/20 09:00 History Vit B12/Folic Acid/B6/Aa No.15 1,000 mg PO DAILY 04/20/20 03/15/21 10/31/20 09:00 History amLODIPine 10 mg PO DAILY 06/09/20 03/15/21 10/31/20 09:00 History AtorvaSTATin 40 mg PO HS 11/01/20 03/15/21 10/31/20 21:00 History Benadryl 25 mg PO HS 11/01/20 03/15/21 10/31/20 21:00 History Diclofenac 1 applic TRANSDERMA QID 11/01/20 03/15/21 10/31/20 19:00 History Vitamin D3 2,000 units PO QDAY 11/01/20 03/15/21 10/31/20 09:00 History carvediloL 12.5 mg PO DAILY 11/01/20 03/15/21 10/31/20 09:00 History hydrALAZINE 100 mg PO TID 11/01/20 03/15/21 10/31/20 19:00 History Fluticasone Propionate 1 spray INTRANASAL DAILY #1 02/21/21 03/15/21 Unknown Rx HYDROcodone/ACETAMINOPHEN 15 ml PO Q6H PRN #150 ml 02/21/21 03/15/21 Unknown Rx [Hydrocodon-Acetamin 7.5-325/15] Insulin Glargine [Lantus VIAL] 5 units SUB-Q QHS #1 units 02/21/21 03/15/21 Unknown Rx Lispro Insulin [HumaLOG] See Protocol SUB-Q Q6HR #1 vial 02/21/21 03/15/21 Unknown Rx Scopolamine [Transderm-Scop] 1 each TD Q3D #10 patch 02/21/21 03/15/21 Unknown Rx cloNIDine-TTS PATCH [Catapres-Tts 0.2 mg TD We #30 patch 02/21/21 03/15/21 Unknown Rx 0.2mg Patch] Active Medications: Generic Name Dose Route Start Last Admin Trade Name Freq PRN Reason Stop Dose Admin Acetaminophen 650 mg 03/15/21 19:31 03/17/21 20:29 Acetaminophen 325 Mg Tab PO 650 mg Q4H PRN Administration Pain MILD(1-3)/Fever >100.5/HULL Hydrocodone Bitart/Acetaminophen 7.5 mg 03/15/21 19:39 Hydrocodone/Acetaminophen [id number] Oral Liqd PO Q6H PRN Pain , Severe (7-10) Albuterol 2.5 mg 03/15/21 19:31 Albuterol 2.5 Mg/3 Ml Nebu IH Q4HRT PRN Shortness Of Breath Calcium Acetate 667 mg 03/16/21 10:00 03/19/21 09:36 Calcium Acetate 667 Mg Cap PO Not Given DAILY [facility] Carvedilol 12.5 mg 03/16/21 10:00 03/19/21 09:36 Carvedilol 12.5 Mg Tab PO Not Given DAILY [facility] Cholecalciferol 2,000 unit 03/16/21 10:00 03/19/21 09:36 Cholecalciferol (Vit D3) 1000 Unit (25 Mcg) Tab PO Not Given QDAY [facility] Dextrose 50 ml 03/15/21 19:46 Dextrose 50% In Water (25gm) 50 Ml Syringe IV Q30MIN PRN Hypoglycemia Protocol Famotidine 10 mg 03/15/21 22:00 03/19/21 21:19 Famotidine 20 Mg/2 Ml Inj IV 10 mg BID [facility] Administration Heparin Sodium (Porcine) 3,200 unit 03/15/21 17:16 03/17/21 14:35 Heparin 10,000 Units/10 Ml Vial 40 unit/kg (3200 unit) 3,200 unit IV Administration Q6H PRN Anti-Xa Assay<0.1 units/ml Hydromorphone HCl 0.5 mg 03/15/21 19:31 Hydromorphone 1 Mg/1 Ml Inj IV Q3H PRN Pain , Severe (7-10) Sodium Chloride 100 mls @ 999 mls/hr 03/15/21 16:00 Nacl 0.9% IV [place] PRN Hypotension Heparin Sodium/Sodium Chloride 25,000 unit in 500 mls @ 23 mls/hr 03/16/21 07:00 03/20/21 05:58 Heparin/ 0.45% Nacl-25,000 Unit/500 Ml IV 2,050 units/hr TITR [facility] 41 mls/hr Administration Protocol 1,150 UNITS/HR Micafungin Sodium 100 mg/ 100 mls @ 100 mls/hr 03/16/21 19:00 03/19/21 21:19 Sodium Chloride IV 100 mls/hr Q24H [facility] Administration Protocol Octreotide Acetate 50 mcg/ 51 mls @ 100 mls/hr 03/17/21 14:00 03/20/21 05:09 Sodium Chloride IV Not Given Q8HR [facility] Amino Acids/Electrolytes/Dextrose 1,800 mls @ 75 mls/hr 03/19/21 20:00 03/19/21 21:19 Tpn Adult IV 03/20/21 19:59 75 mls/hr DAILY@2000 [facility] Administration Protocol Insulin Human Regular 0 units 03/15/21 20:00 03/20/21 02:18 Insulin Regular, Human 100 Units/1 Ml SUB-Q Not Given Q6H [facility] Protocol Magnesium Oxide 400 mg 03/16/21 10:00 03/19/21 09:36 Magnesium Oxide 400 Mg Tab PO Not Given QDAY [facility] Morphine Sulfate 2 mg 03/15/21 19:31 03/16/21 13:27 Morphine 2 Mg/1 Ml Inj IV 2 mg Q4H PRN Administration Pain, Moderate (4-6) Ondansetron HCl 4 mg 03/15/21 19:31 Ondansetron 4 Mg/2 Ml Inj IV Q8H PRN Nausea And Vomiting Scopolamine 1 each 03/16/21 10:00 03/19/21 09:35 Scopolamine Transdermal Patch 72 Hr TD 1 each Q3D [facility] Administration Sodium Chloride 10 ml 03/15/21 22:00 03/19/21 21:20 Sodium Chloride 0.9% 10 Ml Flush Syringe IV 10 ml BID [facility] Administration Sodium Chloride 10 ml 03/15/21 20:31 Sodium Chloride 0.9% 10 Ml Flush Syringe IV PRN PRN LINE FLUSH
--- NOTE | 2021-03-20 10:26 | Vascular Lab Report ---
BILATERAL UPPER EXTREMITY VENOUS DOPPLER ULTRASOUND HISTORY: Upper extremity pain and swelling. COMPARISON: 12/26/2020 TECHNIQUE: Grayscale, color and spectral Doppler imaging of the venous system of both upper extremiti es was performed. FINDINGS: Right Upper Extremity: Internal Jugular Vein: Normal grayscale appearance and flow. Subclavian Vein: Normal grayscale appearance and flow. Axillary Vein: Normal venous flow, compressibility and augmentation. Brachial vein: Normal venous flow, compressibility and augmentation. Left Upper Extremity: Internal Jugular Vein: Normal grayscale appearance and flow. Subclavian Vein: Normal grayscale appearance and flow. Axillary Vein: Normal venous flow, compressibility and augmentation. Brachial vein: Normal venous flow, compressibility and augmentation. Additional Findings: The cephalic and basilic veins were not imaged. Superficial thrombosis in the ri t upper extremity noted on the previous exam was not imaged. IMPRESSION: 1. No sonographic evidence of deep venous thrombosis in either upper extremity. Signer Name: Rodney Ho Jr, MD Signed: 03/20/2021 10:22 AM Workstation Name: [id number]
[2021-03-20] MEDS: carvediloL 12.5 MG TAB PO SCH (11:00)
--- NOTE | 2021-03-20 12:45 | Progress Note ---
Subjective Date of service: 03/20/21 Principal diagnosis: Hypoxia, fever Interval history: Patient on dialysis. Bacteremia and fungemia noted. Fungemia likely secondary to TPN. Unfortunately, due to the economic increasing cost of ethanol locks, there is no good way to prevent repeat episodes of infection from central lines. Plan for PermCath removal and tunneled smallbore catheter removal today. Once cleared by ID, will replace lines. Possibly Saturday. Objective - Constitutional Vitals: Vital Signs - 12hr 03/20/21 03/20/21 03/20/21 04:55 08:39 08:48 Temperature 98.3 F 97.4 F L Pulse Rate 72 86 70 Respiratory 20 19 Rate Blood Pressure 164/87 177/98 O2 Sat by Pulse 96 92 Oximetry O2 Sat by Pulse Oximetry [ Anterior Bilateral Throughout] 03/20/21 03/20/21 03/20/21 10:20 10:30 10:45 Temperature 98.4 F Pulse Rate 92 H 75 70 Respiratory 18 Rate Blood Pressure 179/97 190/110 190/109 O2 Sat by Pulse Oximetry O2 Sat by Pulse 100 Oximetry [ Anterior Bilateral Throughout] 03/20/21 03/20/21 03/20/21 11:00 11:15 11:30 Temperature Pulse Rate 70 74 70 Respiratory Rate Blood Pressure 196/109 186/87 182/107 O2 Sat by Pulse Oximetry O2 Sat by Pulse Oximetry [ Anterior Bilateral Throughout] - Labs CBC & Chem 7: 03/19/21 04:17 03/20/21 02:28 Labs: Abnormal lab results 03/19/21 03/19/21 03/19/21 Range/Units 14:09 19:22 21:13 Heparin Anti-Xa Level 0.27 L (0.3-0.7) U.I./ml Sodium (137-145) mmol/L Chloride (98-107) mmol/L BUN (9-20) mg/dL Creatinine (0.8-1.3) mg/dL Glucose (75-100) mg/dL POC Glucose 118 H 117 H (70-105) mg/dL 03/20/21 03/20/21 03/20/21 Range/Units 01:54 02:28 02:28 Heparin Anti-Xa Level 0.29 L (0.3-0.7) U.I./ml Sodium 133 L (137-145) mmol/L Chloride 94.9 L (98-107) mmol/L BUN 72 H (9-20) mg/dL Creatinine 9.0 H (0.8-1.3) mg/dL Glucose 111 H (75-100) mg/dL POC Glucose 119 H (70-105) mg/dL Medications & Allergies - Medications Allergies/Adverse Reactions: Allergies No Known Allergies Allergy (Verified 06/09/20 15:27) Home Medications: Home Medications Medication Instructions Recorded Confirmed Last Taken Type Albuterol Mdi (or & Nicu Only) 2 puff IH QID PRN #1 inhalation 04/01/17 03/15/21 10/31/20 09:00 Rx [ProAir HFA Inhaler] Calcium Acetate 667 mg PO DAILY 04/20/20 03/15/21 10/31/20 09:00 History Centrum Men's Tablet 1 tab PO DAILY 04/20/20 03/15/21 10/31/20 09:00 History Cinacalcet 30 mg PO DAILY 04/20/20 03/15/21 10/31/20 09:00 History Dialyvite with Zinc Tablet 1 tab PO DAILY 04/20/20 03/15/21 10/31/20 09:00 History Magnesium 250 mg PO BID 04/20/20 03/15/21 10/31/20 17:00 History Triamcinolone 0.1% 1 1000units TRANSDERMA DAILY 04/20/20 03/15/21 10/31/20 09:00 History Vit B12/Folic Acid/B6/Aa No.15 1,000 mg PO DAILY 04/20/20 03/15/21 10/31/20 09:00 History amLODIPine 10 mg PO DAILY 06/09/20 03/15/21 10/31/20 09:00 History AtorvaSTATin 40 mg PO HS 11/01/20 03/15/21 10/31/20 21:00 History Benadryl 25 mg PO HS 11/01/20 03/15/21 10/31/20 21:00 History Diclofenac 1 applic TRANSDERMA QID 11/01/20 03/15/21 10/31/20 19:00 History Vitamin D3 2,000 units PO QDAY 11/01/20 03/15/21 10/31/20 09:00 History carvediloL 12.5 mg PO DAILY 11/01/20 03/15/21 10/31/20 09:00 History hydrALAZINE 100 mg PO TID 11/01/20 03/15/21 10/31/20 19:00 History Fluticasone Propionate 1 spray INTRANASAL DAILY #1 02/21/21 03/15/21 Unknown Rx HYDROcodone/ACETAMINOPHEN 15 ml PO Q6H PRN #150 ml 02/21/21 03/15/21 Unknown Rx [Hydrocodon-Acetamin 7.5-325/15] Insulin Glargine [Lantus VIAL] 5 units SUB-Q QHS #1 units 02/21/21 03/15/21 Unknown Rx Lispro Insulin [HumaLOG] See Protocol SUB-Q Q6HR #1 vial 02/21/21 03/15/21 Unknown Rx Scopolamine [Transderm-Scop] 1 each TD Q3D #10 patch 02/21/21 03/15/21 Unknown Rx cloNIDine-TTS PATCH [Catapres-Tts 0.2 mg TD We #30 patch 02/21/21 03/15/21 Un known Rx 0.2mg Patch] Active Medications: Generic Name Dose Route Start Last Admin Trade Name Freq PRN Reason Stop Dose Admin Acetaminophen 650 mg 03/15/21 19:31 03/17/21 20:29 Acetaminophen 325 Mg Tab PO 650 mg Q4H PRN Administration Pain MILD(1-3)/Fever >100.5/HULL Hydrocodone Bitart/Acetaminophen 7.5 mg 03/15/21 19:39 Hydrocodone/Acetaminophen [id number]-[id number] Oral Liqd PO Q6H PRN Pain , Severe (7-10) Albuterol 2.5 mg 03/15/21 19:31 Albuterol 2.5 Mg/3 Ml Nebu IH Q4HRT PRN Shortness Of Breath Calcium Acetate 667 mg 03/16/21 10:00 03/19/21 09:36 Calcium Acetate 667 Mg Cap PO Not Given DAILY [facility] Carvedilol 12.5 mg 03/16/21 10:00 03/20/21 11:00 Carvedilol 12.5 Mg Tab PO 12.5 mg DAILY [facility] Administration Cholecalciferol 2,000 unit 03/16/21 10:00 03/19/21 09:36 Cholecalciferol (Vit D3) 1000 Unit (25 Mcg) Tab PO Not Given QDAY [facility] Dextrose 50 ml 03/15/21 19:46 Dextrose 50% In Water (25gm) 50 Ml Syringe IV Q30MIN PRN Hypoglycemia Protocol Famotidine 10 mg 03/15/21 22:00 03/19/21 21:19 Famotidine 20 Mg/2 Ml Inj IV 10 mg BID [facility] Administration Heparin Sodium (Porcine) 3,200 unit 03/15/21 17:16 03/17/21 14:35 Heparin 10,000 Units/10 Ml Vial 40 unit/kg (3200 unit) 3,200 unit IV Administration Q6H PRN Anti-Xa Assay<0.1 units/ml Hydromorphone HCl 0.5 mg 03/15/21 19:31 Hydromorphone 1 Mg/1 Ml Inj IV Q3H PRN Pain , Severe (7-10) Sodium Chloride 100 mls @ 999 mls/hr 03/15/21 16:00 Nacl 0.9% IV [place] PRN Hypotension Heparin Sodium/Sodium Chloride 25,000 unit in 500 mls @ 23 mls/hr 03/16/21 07:00 03/20/21 05:58 Heparin/ 0.45% Nacl-25,000 Unit/500 Ml IV 2,050 units/hr TITR [facility] 41 mls/hr Administration Protocol 1,150 UNITS/HR Micafungin Sodium 100 mg/ 100 mls @ 100 mls/hr 03/16/21 19:00 03/19/21 21:19 Sodium Chloride IV 100 mls/hr Q24H [facility] Administration Protocol Octreotide Acetate 50 mcg/ 51 mls @ 100 mls/hr 03/17/21 14:00 03/20/21 05:09 Sodium Chloride IV Not Given Q8HR [facility] Amino Acids/Electrolytes/Dextrose 1,800 mls @ 75 mls/hr 03/19/21 20:00 03/19/21 21:19 Tpn Adult IV 03/20/21 19:59 75 mls/hr DAILY@1999 [facility] Administration Protocol Amino Acids/Electrolytes/Dextrose 1,800 mls @ 75 mls/hr 03/20/21 20:00 Tpn Adult IV 03/21/21 19:59 DAILY@1999 [facility] Protocol Insulin Human Regular 0 units 03/15/21 20:00 03/20/21 02:18 Insulin Regular, Human 100 Units/1 Ml SUB-Q Not Given Q6H [facility] Protocol Morphine Sulfate 2 mg 03/15/21 19:31 03/16/21 13:27 Morphine 2 Mg/1 Ml Inj IV 2 mg Q4H PRN Administration Pain, Moderate (4-6) Ondansetron HCl 4 mg 03/15/21 19:31 Ondansetron 4 Mg/2 Ml Inj IV Q8H PRN Nausea And Vomiting Scopolamine 1 each 03/16/21 10:00 03/19/21 09:35 Scopolamine Transdermal Patch 72 Hr TD 1 each Q3D [facility] Administration Sodium Chloride 10 ml 03/15/21 22:00 03/19/21 21:20 Sodium Chloride 0.9% 10 Ml Flush Syringe IV 10 ml BID [facility] Administration Sodium Chloride 10 ml 03/15/21 20:31 Sodium Chloride 0.9% 10 Ml Flush Syringe IV PRN PRN LINE FLUSH
--- NOTE | 2021-03-20 13:17 | Progress Note ---
Assessment and Plan Cultures: Blood culture 03/15/2021 growing yeast, coag negative staph in multiple bottles 03/16/2021 urine culture: No growth 03/18/2021 blood culture: No growth so far Assessment: 61-year-old male with history of ESRD initially on PD, CHF, , Crohn's disease, CHF, gastroesophageal reflux disease, status post prolonged hospital complicated stay from 12/22/2020-02/21/2021 due to complicated small bowel obstruction with necrotic small bowel s/p small bowel resection and primary anastomosis, requiring right hemicolectomy on 01/03/2021, complicated with a Streptococcus bovis and Prevotella bacteremia on 12/22/2020, complicated with perforated anastomosis, s/p multiple surgeries readmitted on 03/15/2021 secondary to fever, hypoxia and altered mental status/somnolence: #Severe sepsis: likely secondary to candidemia. #Candidemia: Yeast present in several bottles of blood cultures. Likely due to intra-abdominal collection versus central line infection, patient has dialysis catheter as well as tunneled line, is on TPN. TTE without obvious vegetations on the valves. #Coag negative staph bacteremia: Possibly due to central line infection. #Pancreatic pseudocyst vs intra-abdominal collection: CT with 6.6 x 3.3 x 4.8 cm pseudocyst could be source of candidemia. CRP 14.9. Lipase normal. #Complicated small bowel obstruction: with necrotic small bowel s/p small bowel resection and primary anastomosis, requiring right hemicolectomy on 01/03/2021, and multiple other surgeries. #Acute pulmonary embolism: On heparin drip. #Elevated LFTs: Likely secondary to sepsis/pancreatic pseudocyst more than acute hepatitis B infection. Patient noted to have hepatitis B core IgM positive ? False positive versus acute hepatitis B less likely. #ESRD on hemodialysis. Renally adjust antibiotics. #Acute encephalopathy: Likely secondary to sepsis. Recommendations: -Continue IV micafungin -Follow-up blood cultures and yeast identification -Renally dosed IV vancomycin added due to coag negative staph bacteremia -Removal of indwelling dialysis as well as tunneled central lines when feasible -Consider holding TPN for a few days if possible -Follow-up hepatitis B DNA PCR -Management of pseudocyst per GI, unclear if infected, seems not amenable for IR drainage per IR note Guarded prognosis Yesika Denny MD, FACP [facility] ([facility]) O: [phone] F: [phone] Subjective Date of service: 03/20/21 Principal diagnosis: Hypoxia, fever Interval history: Patient seen at dialysis. Denies any new complaints, has some loose stools. Objective - Exam Narrative Exam: Physical Exam: Constitutional: Alert, no distress Head, Ears, Nose: Normocephalic, atraumatic. External ears, nose normal Eyes: Conjunctivae/corneas clear. No icterus. No ptosis. Neck: Supple, no meningeal signs Cardiovascular: S1, S2 normal. Respiratory: Good air entry, clear to auscultation bilaterally GI: Soft, non-tender; bowel sounds normal. No peritoneal signs Musculoskeletal: No pedal edema, no cyanosis. Right subclavian region HD catheter, tunneled central line present Skin: No rash or abscess Hem/Lymphatic: No palpable cervical or supraclavicular nodes. No lymphangitis Psych: Somewhat restless Neurological: Awake, alert - Constitutional Vitals: Vital Signs Temp Pulse Resp BP Pulse Ox 98.4 F 70 18 182/107 100 03/20/21 10:20 03/20/21 11:30 03/20/21 10:20 03/20/21 11:30 03/20/21 10:20 Temperature -Last 24 Hours Temperature 98.4 F Temperature 97.4 F Temperature 98.3 F Temperature 98.2 F Temperature 98.2 F Temperature 98.3 F Temperature 98.2 F - Labs CBC & Chem 7: 03/19/21 04:17 03/20/21 02:28 Labs: Abnormal lab results 03/19/21 03/19/21 03/19/21 Range/Units 14:09 19:22 21:13 Heparin Anti-Xa Level 0.27 L (0.3-0.7) U.I./ml Sodium (137-145) mmol/L Chloride (98-107) mmol/L BUN (9-20) mg/dL Creatinine (0.8-1.3) mg/dL Glucose (75-100) mg/dL POC Glucose 118 H 117 H (70-105) mg/dL 03/20/21 03/20/21 03/20/21 Range/Units 01:54 02:28 02:28 Heparin Anti-Xa Level 0.29 L (0.3-0.7) U.I./ml Sodium 133 L (137-145) mmol/L Chloride 94.9 L (98-107) mmol/L BUN 72 H (9-20) mg/dL Creatinine 9.0 H (0.8-1.3) mg/dL Glucose 111 H (75-100) mg/dL POC Glucose 119 H (70-105) mg/dL
[2021-03-20] MEDS ORDERED: VANCOMYCIN PHARMACY TO DOSE IV SCH (14:00)
--- NOTE | 2021-03-20 15:10 | Progress Note ---
Assessment and Plan 60-year-old male resident of [facility] with past history of congestive heart failure, hypertension, end-stage renal disease and Crohn's disease with extensive history of multiple abdominal surgeries for Small bowel obstruction/necrotic bowel, controlled anastomotic leak that is transitioning to a fistula presents to the ED with a chief complaint of fever hypoxemia acute respiratory failure. Patient received CT scan in the a.m. for work-up of hypoxemia and was found to have right sided pulmonary embolism. Patient was admitted placed on heparin drip. Patient was also complaining of some abdominal pain of which a CT scan of the abdomen and pelvis showed a 6 cm fluid collection between the stomach and the pancreas suggestive of a pancreatic pseudocyst. A/P -- Altered mental status/acute encephalopathy, improved Multifactorial hypoxemia, uremia with acute infectious process/candidemia -Treat underlying etiology -Optimize oxygenation --Abdominal pain likely due to pancreatic pseudocyst formation CT scan of the abdomen and pelvis showed a 6 cm fluid collection between the stomach and the pancreas suggestive of a pancreatic pseudocyst. --Placed surgical consult as well GI consult for pancreatic pseudocyst : No Surgical intervention Needed. -Provide supportive care with pain control -Above consultations -- Fever, resolved Could be secondary to pulmonary embolism versus other underlying infection Continue to treat underlying cause, follow culture result --Severe sepsis, likely due to underlying fungemia/candidemia Continue empiric antibiotics, ID consulted; follow recommendation --Candidemia, blood cultures growing yeast Started on micafungin, will follow ID recommendation Ordered Repeat blood Cx, removed right sided permcath, wait blood cx neg till to place a new perm cath -- Pulmonary embolus IV heparin Supportive care, supplemental oxygenation -- ESRD (end stage renal disease) Patient on hemodialysis, renal consult has been ordered. --Hepatitis B core antibody positive Supportive care, monitor LFT ID and GI consult -- Elevated liver transaminase level Patient markedly elevated transaminase levels since last month. Differential diagnosis includes acute infection with hepatitis B. Patient has hepatitis B core antigen positive IgM. Will place ID consult. --History of ischemic bowel disease with necrotic small bowel s/p small bowel resection and primary anastomosis, requiring right hemicolectomy on 01/03/2021, and multiple other surgeries. Recent CT abdomen pelvis showed no bowel obstruction Patient with 2 intra-abdominal drainage: General surgery consulted Patient also on TPN: Consulted dietary -- Anemia of chronic disease No evidence of acute GI blood loss anemia. s/p 2 units packed red blood cells transfusion --DVT prophylaxis, patient on heparin drip -- Full code status --Patient is critically ill Daily clinical course: 03/16/21: Hemoglobin 6.0 this morning, continue to transfuse. Monitor H&H carefully while patient on heparin drip. Noted general surgery and IR recommendation. Will consult GI for pancreatic pseudocyst. Continue to follow clinically with supportive care. Blood culture growing yeast we'll also add fluconazole. 03/17/21: Patient receiving hemodialysis, BP appears to be stable, continue empiric antibiotic. Follow ID and GI recommendation. Per general surgery no intervention required for pancreatic pseudocyst. If patient condition return to BX may need to transfer to tertiary center for possible drainage. 03/18/21: Continue empiric antibiotics, hemodialysis per nephrology. Continue TPN. Patient H&H remained stable, continue to follow BMP. Transfer out of [facility] to telemetry. 03/19/21: Patient transferred to telemetry today. H&H remained stable. White count slightly elevated, will follow CBC. Repeat blood culture from 03/18/21 having no growth. Continue empiric antibiotics per ID and TPN. Discharge planning per general surgery and ID recommendation. Patient intermittently refusing care; counseled extensively he verbalized understanding and promised to follow hospital protocol and MD recommendations 10/21/20: Removed right-sided PermCath today per vascular as patient blood culture initially was positive for yeast. Continue empiric antibiotics per ID recommendation. Dialysis per nephrology. Continue TPN and follow BMP. Per ID: Due to fungemia, will need blood cultures to be negative at 5 days (03/23/2021) before new tunneled lines can be placed (Ok to place temporary ones if needed). Subjective Date of service: 03/20/21 Principal diagnosis: Hypoxia, fever Interval history: Patient seen and examined. Medical records and medication list reviewed. No acute event overnight noted by the RN. Patient denies any chest pain, mental status stable. Discussed plan of care at bedside with patient and with RN. Objective - Exam Narrative Exam: GENERAL: well-developed -[place] male lying on bed appeared to be in no discomfort. HEENT: Normocephalic. Atraumatic. No conjunctival congestion or icterus. Patient has moist mucous membranes. NECK: Supple. Trachea midline. CHEST/LUNGS: Clear to auscultated bilaterally, breathing nonlabored. No wheezes crackles or rhonchi. HEART/CARDIOVASCULAR: Regular in rate and rhythm. S1 and S2 positive. ABDOMEN: Abdomen is soft, with 2 intra-abdominal drainage in place. Patient has normal bowel sounds. SKIN: There is no rash. Warm and dry. NEURO: No focal motor deficit. Follows command. MUSCULOSKELETAL: No joint effusion or tenderness. EXTRIMITY: No edema, no cyanosis or clubbing. PSYCH: Cooperative. - Constitutional Vitals: Vital Signs - 12hr 03/20/21 03/20/21 03/20/21 04:55 08:39 08:48 Temperature 98.3 F 97.4 F L Pulse Rate 72 86 70 Respiratory 20 19 Rate Blood Pressure 164/87 177/98 O2 Sat by Pulse 96 92 Oximetry O2 Sat by Pulse Oximetry [ Anterior Bilateral Throughout] 03/20/21 03/20/21 03/20/21 09:22 10:00 10:20 Temperature 98.4 F Pulse Rate 92 H Respiratory 18 Rate Blood Pressure 109/67 179/97 O2 Sat by Pulse 100 Oximetry O2 Sat by Pulse 100 Oximetry [ Anterior Bilateral Throughout] 03/20/21 03/20/21 03/20/21 10:30 10:45 11:00 Temperature Pulse Rate 75 70 70 Respiratory Rate Blood Pressure 190/110 190/109 196/109 O2 Sat by Pulse Oximetry O2 Sat by Pulse Oximetry [ Anterior Bilateral Throughout] 03/20/21 03/20/21 11:15 11:30 Temperature Pulse Rate 74 70 Respiratory Rate Blood Pressure 186/87 182/107 O2 Sat by Pulse Oximetry O2 Sat by Pulse Oximetry [ Anterior Bilateral Throughout] - Labs CBC & Chem 7: 03/21/21 03:23 03/22/21 04:18 Labs: Abnormal lab results 03/19/21 03/19/21 03/20/21 Range/Units 19:22 21:13 01:54 Heparin Anti-Xa Level 0.27 L (0.3-0.7) U.I./ml Sodium (137-145) mmol/L Chloride (98-107) mmol/L BUN (9-20) mg/dL Creatinine (0.8-1.3) mg/dL Glucose (75-100) mg/dL POC Glucose 117 H 119 H (70-105) mg/dL 03/20/21 03/20/21 Range/Units 02:28 02:28 Heparin Anti-Xa Level 0.29 L (0.3-0.7) U.I./ml Sodium 133 L (137-145) mmol/L Chloride 94.9 L (98-107) mmol/L BUN 72 H (9-20) mg/dL Creatinine 9.0 H (0.8-1.3) mg/dL Glucose 111 H (75-100) mg/dL POC Glucose (70-105) mg/dL
--- NOTE | 2021-03-20 16:21 | Progress Note ---
Assessment and Plan 60-year-old male, with extensive history of multiple abdominal surgeries, controlled anastomotic leak that is transitioning to a fistula, and new acute pulmonary embolism. Stable and afebrile. Sepsis work up - blood cultures positive for fungus, IR changing line access Pulmonary embolism-supportive care and treat with anticoagulation Abdominal fluid collection consistent with pancreatic pseudocyst-no acute intervention planned at this time. Spoke to interventional radiology who said that the collection is not assessable externally. Will consult GI, for evaluation and follow-up and determine if he is amenable for endoscopic tra nsgastric drainage of collection. I do not believe this service is offered at this facility and patient may need to get this done as an outpatient or transferred. With that said, assuming this is a pseudocyst, it may take a few weeks to get a mature wall of the cyst and allow for further interventional management. Anastomotic leak-we will continue TPN, will allow water and ice for the moment and monitor output. Would like to make sure that the output returns to minimal as it was prior to discharge at his last admission. We will not advance diet for the moment. We will continue octreotide to help decrease output. Renal failure-dialysis per renal No acute general surgical intervention indicated at this time we will continue to follow. Subjective Date of service: 03/20/21 Narrative: No acute events overnight. Patient was transferred to the floor. Patient says that he is feeling better compared to over the weekend and had just completed dialysis. Objective Vital Signs - 12hr 03/20/21 03/20/21 03/20/21 04:55 08:39 08:48 Temperature 98.3 F 97.4 F L Pulse Rate 72 86 70 Respiratory 20 19 Rate Blood Pressure 164/87 177/98 O2 Sat by Pulse 96 92 Oximetry O2 Sat by Pulse Oximetry [ Anterior Bilateral Throughout] 03/20/21 03/20/21 03/20/21 09:22 10:00 10:20 Temperature 98.4 F Pulse Rate 92 H Respiratory 18 Rate Blood Pressure 109/67 179/97 O2 Sat by Pulse 100 Oximetry O2 Sat by Pulse 100 Oximetry [ Anterior Bilateral Throughout] 03/20/21 03/20/21 03/20/21 10:30 10:45 11:00 Temperature Pulse Rate 75 70 70 Respiratory Rate Blood Pressure 190/110 190/109 196/109 O2 Sat by Pulse Oximetry O2 Sat by Pulse Oximetry [ Anterior Bilateral Throughout] 03/20/21 03/20/21 03/20/21 11:15 11:30 11:45 Temperature Pulse Rate 74 70 76 Respiratory Rate Blood Pressure 186/87 182/107 157/99 O2 Sat by Pulse Oximetry O2 Sat by Pulse Oximetry [ Anterior Bilateral Throughout] 03/20/21 03/20/21 03/20/21 12:00 12:15 12:30 Temperature Pulse Rate 76 76 71 Respiratory Rate Blood Pressure 150/98 150/98 170/88 O2 Sat by Pulse Oximetry O2 Sat by Pulse Oximetry [ Anterior Bilateral Throughout] 03/20/21 03/20/21 03/20/21 12:45 13:00 13:15 Temperature Pulse Rate 70 70 66 Respiratory Rate Blood Pressure 163/56 170/86 166/90 O2 Sat by Pulse Oximetry O2 Sat by Pulse Oximetry [ Anterior Bilateral Throughout] 03/20/21 03/20/21 03/20/21 13:30 13:50 14:10 Temperature 98.2 F Pulse Rate 66 86 71 Respiratory 18 Rate Blood Pressure 166/95 160/87 166/83 O2 Sat by Pulse Oximetry O2 Sat by Pulse 100 Oximetry [ Anterior Bilateral Throughout] - General physical appearance well developed, no pain - Respiratory normal expansion, normal respiratory effort - Abdomen soft, not tender, other (HARIS drain with light brown drainage. 40cc recorded last 24 hours, G-tube in place.) - Psychiatric oriented to time, oriented to person - Labs 03/19/21 04:17 03/20/21 02:28 Diabetes panel 03/20/21 Range/Units 02:28 Sodium 133 L (137-145) mmol/L Potassium 3.7 (3.6-5.0) mmol/L Chloride 94.9 L (98-107) mmol/L Carbon Dioxide 24 (22-30) mmol/L BUN 72 H (9-20) mg/dL Creatinine 9.0 H (0.8-1.3) mg/dL Glucose 111 H (75-100) mg/dL Calcium 8.8 (8.4-10.2) mg/dL Calcium panel 03/20/21 Range/Units 02:28 Calcium 8.8 (8.4-10.2) mg/dL Phosphorus 3.20 (2.5-4.5) mg/dL Pituitary panel 03/20/21 Range/Units 02:28 Sodium 133 L (137-145) mmol/L Potassium 3.7 (3.6-5.0) mmol/L Chloride 94.9 L (98-107) mmol/L Carbon Dioxide 24 (22-30) mmol/L BUN 72 H (9-20) mg/dL Creatinine 9.0 H (0.8-1.3) mg/dL Glucose 111 H (75-100) mg/dL Calcium 8.8 (8.4-10.2) mg/dL Adrenal panel 03/20/21 Range/Units 02:28 Sodium 133 L (137-145) mmol/L Potassium 3.7 (3.6-5.0) mmol/L Chloride 94.9 L (98-107) mmol/L Carbon Dioxide 24 (22-30) mmol/L BUN 72 H (9-20) mg/dL Creatinine 9.0 H (0.8-1.3) mg/dL Glucose 111 H (75-100) mg/dL Calcium 8.8 (8.4-10.2) mg/dL
--- NOTE | 2021-03-20 16:23 | Operative Report ---
Operative Report Operative Report: EXAM: 1. Tunneled catheter removal, right PermCath 2. Tunneled catheter removal, right small bore dual-lumen catheter DATE: 03/20/2021 INDICATION: Bacteremia and fungemia MEDICATIONS: Please see nursing report for full details. SEWER PIPE LAYER HELPER: LAXMI CHISHOLM MD CONTRAST: None PROCEDURE: The risks, benefits, and alternatives were discussed; written informed consent was obtained. The patient was positioned with the head towards the contralateral side. The tunneled catheters were prepped and draped in a sterile fashions. Attention was first paid towards the right PermCath. Lidocaine was infiltrated at the dermatotomy site. Heparin was withdrawn from both lumens. Using a hemostat, blunt dissection was performed and the cuff was extracted. The catheter was extracted and pressure was held at the venotomy and dermatotomy site until hemostasis was achieved. Attention was then paid towards the right small bore dual-lumen catheter Lidocaine was infiltrated at the dermatotomy site. Heparin was withdrawn from both lumens. Using a hemostat, blunt dissection was performed and the cuff was extracted. The catheter was extracted and pressure was held at the venotomy and dermatotomy site until hemostasis was achieved. Sterile bandage was then applied. The patient tolerated the procedure without issue. FINDINGS: Successful removal of the tunneled catheter, permcath Successful removal of the tunneled catheter, small bore dual lumen catheter IMPRESSION: Successful removal of the right chest tunneled catheters.
[2021-03-20] MEDS ORDERED: VANCOMYCIN 1,250 MG in SODIUM CHLORIDE 0.9% 250ML 250 ML IV ONE (17:00)
[2021-03-20] MEDS: MICAFUNGIN 100 MG in SODIUM CHLORIDE 0.9% 100 ML IV SCH (19:08)
[2021-03-20] MEDS ORDERED: TOTAL PARENTERAL NUTRITION 1,800 ML IV SCH (20:00)
[2021-03-21] MEDS: INSULIN REGULAR, HUMAN 100 UNITS/1 ML SUB-Q SCH ×4 (02:00→21:25)
[2021-03-21] MEDS: HEPARIN/ 0.45% NACL DRIP 25,000 UNIT/500 ML BAG IV SCH ×2 (02:40→23:40)
[2021-03-21 04:03] LABS: Eosinophils # (Auto) 0.3 K/mm3 (0.0-0.4); Eosinophils % (Auto) 3.2 % (0.0-4.3); Hematocrit 22.2 % (35.5-45.6); Hemoglobin 7.4 gm/dl (11.8-15.2); Lymphocytes # (Auto) 1.1 K/mm3 (1.2-5.4); Lymphocytes % (Auto) 13.5 % (13.4-35.0); Mean Corpuscular HGB Conc 34 % (32-34); Mean Corpuscular Volume 93 fl (84-94); Monocytes # (Auto) 0.8 K/mm3 (0.0-0.8); Monocytes % (Auto) 9.7 % (0.0-7.3); Platelet Count 305 K/mm3 (140-440); Red Blood Count 2.38 M/mm3 (3.65-5.03); Red Cell Distribution Width 16.6 % (13.2-15.2)
[2021-03-21] MEDS: OCTREOTIDE 50 MCG in SODIUM CHLORIDE 0.9% 50 ML IV SCH ×3 (05:55→21:50)
[2021-03-21] MEDS: MAGNESIUM OXIDE 400 MG TAB PO SCH (07:29)
--- NOTE | 2021-03-21 09:25 | Progress Note ---
Assessment and Plan Assessment * End-stage renal disease on hemodialysis * Sepsis * Candidemia * Hypertension * Anemia secondary to ESRD * Secondary hyperparathyroidism Recommendations * Patient is s/p hemodialysis yesterday * Permcath removed yesterday. Reinsertion pending clearance of ID and negative blood cx * ID following - antifungal per ID * Epogen TIW prn * Continue antiHTN medications Subjective Date of service: 03/21/21 Principal diagnosis: Hypoxia, fever Interval history: Patient has no complaints Objective - Vital Signs Vital signs: Vital Signs - 12hr 03/20/21 03/20/21 03/21/21 22:00 23:40 04:00 Temperature 98.9 F Pulse Rate 69 78 Pulse Rate [ 75 From Monitor] Respiratory 18 18 Rate Blood Pressure 163/79 Blood Pressure [Right] O2 Sat by Pulse 98 95 Oximetry 03/21/21 04:51 Temperature 98.2 F Pulse Rate 78 Pulse Rate [ From Monitor] Respiratory Rate Blood Pressure Blood Pressure 141/68 [Right] O2 Sat by Pulse Oximetry - General Appearance General appearance: well-developed, well-nourished EENT: ATNC Respiratory: Present: Decreased Breath Sounds Cardiology: regular, S1S2 Gastrointestinal: normal, no tenderness, no distended Psychiatric: cooperative - Lab 03/21/21 03:23 03/22/21 04:18 Most recent lab results ABG pH 7.367 (7.320-7.450) 03/15/21 12:54 ABG O2 Saturation 89.9 (0-100) 03/15/21 12:54 Calcium 9.0 mg/dL (8.4-10.2) 03/21/21 03:23 Phosphorus 2.90 mg/dL (2.5-4.5) 03/21/21 03:23 Magnesium 1.80 mg/dL (1.7-2.3) 03/21/21 03:23 Medications & Allergies - Medications Allergies/Adverse Reactions: Allergies No Known Allergies Allergy (Verified 06/09/20 15:27) Home Medications: Home Medications Medication Instructions Recorded Confirmed Last Taken Type Albuterol Mdi (or & Nicu Only) 2 puff IH QID PRN #1 inhalation 04/01/17 03/15/21 10/31/20 09:00 Rx [ProAir HFA Inhaler] Calcium Acetate 667 mg PO DAILY 04/20/20 03/15/21 10/31/20 09:00 History Centrum Men's Tablet 1 tab PO DAILY 04/20/20 03/15/21 10/31/20 09:00 History Cinacalcet 30 mg PO DAILY 04/20/20 03/15/21 10/31/20 09:00 History Dialyvite with Zinc Tablet 1 tab PO DAILY 04/20/20 03/15/21 10/31/20 09:00 History Magnesium 250 mg PO BID 04/20/20 03/15/21 10/31/20 17:00 History Triamcinolone 0.1% 1 1000units TRANSDERMA DAILY 04/20/20 03/15/21 10/31/20 09:00 History Vit B12/Folic Acid/B6/Aa No.15 1,000 mg PO DAILY 04/20/20 03/15/21 10/31/20 09 :00 History amLODIPine 10 mg PO DAILY 06/09/20 03/15/21 10/31/20 09:00 History AtorvaSTATin 40 mg PO HS 11/01/20 03/15/21 10/31/20 21:00 History Benadryl 25 mg PO HS 11/01/20 03/15/21 10/31/20 21:00 History Diclofenac 1 applic TRANSDERMA QID 11/01/20 03/15/21 10/31/20 19:00 History Vitamin D3 2,000 units PO QDAY 11/01/20 03/15/21 10/31/20 09:00 History carvediloL 12.5 mg PO DAILY 11/01/20 03/15/21 10/31/20 09:00 History hydrALAZINE 100 mg PO TID 11/01/20 03/15/21 10/31/20 19:00 History Fluticasone Propionate 1 spray INTRANASAL DAILY #1 02/21/21 03/15/21 Unknown Rx HYDROcodone/ACETAMINOPHEN 15 ml PO Q6H PRN #150 ml 02/21/21 03/15/21 Unknown Rx [Hydrocodon-Acetamin 7.5-325/15] Insulin Glargine [Lantus VIAL] 5 units SUB-Q QHS #1 units 02/21/21 03/15/21 Unknown Rx Lispro Insulin [HumaLOG] See Protocol SUB-Q Q6HR #1 vial 02/21/21 03/15/21 Unknown Rx Scopolamine [Transderm-Scop] 1 each TD Q3D #10 patch 02/21/21 03/15/21 Unknown Rx cloNIDine-TTS PATCH [Catapres-Tts 0.2 mg TD We #30 patch 02/21/21 03/15/21 Unknown Rx 0.2mg Patch] Active Medications: Generic Name Dose Route Start Last Admin Trade Name Freq PRN Reason Stop Dose Admin Acetaminophen 650 mg 03/15/21 19:31 03/17/21 20:29 Acetaminophen 325 Mg Tab PO 650 mg Q4H PRN Administration Pain MILD(1-3)/Fever >100.5/HULL Hydrocodone Bitart/Acetaminophen 7.5 mg 03/15/21 19:39 Hydrocodone/Acetaminophen [id number] Oral Liqd PO Q6H PRN Pain , Severe (7-10) Albuterol 2.5 mg 03/15/21 19:31 Albuterol 2.5 Mg/3 Ml Nebu IH Q4HRT PRN Shortness Of Breath Calcium Acetate 667 mg 03/16/21 10:00 03/20/21 10:00 Calcium Acetate 667 Mg Cap PO Not Given DAILY THOMAS Carvedilol 12.5 mg 03/16/21 10:00 03/20/21 11:00 Carvedilol 12.5 Mg Tab PO 12.5 mg DAILY THOMAS Administration Cholecalciferol 2,000 unit 03/16/21 10:00 03/20/21 10:00 Cholecalciferol (Vit D3) 1000 Unit (25 Mcg) Tab PO Not Given QDAY THOMAS Dextrose 50 ml 03/15/21 19:46 Dextrose 50% In Water (25gm) 50 Ml Syringe IV Q30MIN PRN Hypoglycemia Protocol Famotidine 10 mg 03/15/21 22:00 03/20/21 22:38 Famotidine 20 Mg/2 Ml Inj IV 10 mg BID THOMAS Administration Heparin Sodium (Porcine) 3,200 unit 03/15/21 17:16 03/17/21 14:35 Heparin 10,000 Units/10 Ml Vial 40 unit/kg (3200 unit) 3,200 unit IV Administration Q6H PRN Anti-Xa Assay<0.1 units/ml Hydromorphone HCl 0.5 mg 03/15/21 19:31 Hydromorphone 1 Mg/1 Ml Inj IV Q3H PRN Pain , Severe (7-10) Sodium Chloride 100 mls @ 999 mls/hr 03/15/21 16:00 Nacl 0.9% IV [place] PRN Hypotension Heparin Sodium/Sodium Chloride 25,000 unit in 500 mls @ 23 mls/hr 03/16/21 07:00 03/21/21 03:23 Heparin/ 0.45% Nacl-25,000 Unit/500 Ml IV 0 units/hr TITR THOMAS 0 mls/hr Titration Protocol 1,150 UNITS/HR Micafungin Sodium 100 mg/ 100 mls @ 100 mls/hr 03/16/21 19:00 03/20/21 19:08 Sodium Chloride IV Not Given Q24H [facility] Protocol Octreotide Acetate 50 mcg/ 51 mls @ 100 mls/hr 03/17/21 14:00 03/21/21 05:55 Sodium Chloride IV Not Given Q8HR [facility] Amino Acids/Electrolytes/Dextrose 1,800 mls @ 75 mls/hr 03/20/21 20:00 03/20/21 21:49 Tpn Adult IV 03/21/21 19:59 Not Given DAILY@2000 [facility] Protocol Dextrose/Sodium Chloride 1,000 mls @ 42 mls/hr 03/20/21 16:00 D5ns IV DIRECT [facility] Insulin Human Regular 0 units 03/15/21 20:00 03/21/21 08:53 Insulin Regular, Human 100 Units/1 Ml SUB-Q Not Given Q6H [facility] Protocol Morphine Sulfate 2 mg 03/15/21 19:31 03/16/21 13:27 Morphine 2 Mg/1 Ml Inj IV 2 mg Q4H PRN Administration Pain, Moderate (4-6) Ondansetron HCl 4 mg 03/15/21 19:31 Ondansetron 4 Mg/2 Ml Inj IV Q8H PRN Nausea And Vomiting Scopolamine 1 each 03/16/21 10:00 03/19/21 09:35 Scopolamine Transdermal Patch 72 Hr TD 1 each Q3D THOMAS Administration Sodium Chloride 10 ml 03/15/21 22:00 03/21/21 07:23 Sodium Chloride 0.9% 10 Ml Flush Syringe IV Not Given BID THOMAS Sodium Chloride 10 ml 03/15/21 20:31 Sodium Chloride 0.9% 10 Ml Flush Syringe IV PRN PRN LINE FLUSH
[2021-03-21] MEDS: FAMOTIDINE 20 MG/2 ML INJ IV SCH ×2 (10:09→21:51)
[2021-03-21] MEDS: CALCIUM ACETATE 667 MG CAP PO SCH ×2 (10:09→11:09)
[2021-03-21] MEDS: carvediloL 12.5 MG TAB PO SCH ×2 (10:09→11:13)
[2021-03-21] MEDS: CHOLECALCIFEROL (VIT D3) 1000 UNIT (25 mcg) TAB PO SCH ×2 (10:10→11:08)
[2021-03-21] MEDS ORDERED: cloNIDine TTS 0.2 MG/24 HR PATCH TD SCH ×2 (11:00→12:00)
--- NOTE | 2021-03-21 13:35 | Progress Note ---
Assessment and Plan Cultures: Blood culture 03/15/2021 growing yeast, coag negative staph in multiple bottles 03/16/2021 urine culture: No growth 03/18/2021 blood culture: No growth so far Assessment: 61-year-old male with history of ESRD initially on PD, CHF, , Crohn's disease, CHF, gastroesophageal reflux disease, status post prolonged hospital complicated stay from 12/22/2020-02/21/2021 due to complicated small bowel obstruction with necrotic small bowel s/p small bowel resection and primary anastomosis, requiring right hemicolectomy on 01/03/2021, complicated with a Streptococcus bovis and Prevotella bacteremia on 12/22/2020, complicated with perforated anastomosis, s/p multiple surgeries readmitted on 03/15/2021 secondary to fever, hypoxia and altered mental status/somnolence: #Severe sepsis: likely secondary to candidemia. #Candidemia: Yeast present in several bottles of blood cultures. Likely due to intra-abdominal collection versus central line infection, patient had dialysis catheter as well as tunneled line, is on TPN. TTE without obvious vegetations on the valves. Lines removed 03/20/2021 #Coag negative staph bacteremia: Possibly due to central line infection. #Pancreatic pseudocyst vs intra-abdominal collection: CT with 6.6 x 3.3 x 4.8 cm pseudocyst could be source of candidemia. CRP 14.9. Lipase normal. #Complicated small bowel obstruction: with necrotic small bowel s/p small bowel resection and primary anastomosis, requiring right hemicolectomy on 01/03/2021, and multiple other surgeries and abx. #Acute pulmonary embolism: On anticoagulation. #Elevated LFTs: Likely secondary to sepsis/pancreatic pseudocyst more than acute hepatitis B infection. Patient noted to have hepatitis B core IgM positive ? False positive versus acute hepatitis B less likely. #ESRD on hemodialysis. Renally adjust antibiotics. #Acute encephalopathy: Likely secondary to sepsis. Improving. Recommendations: -Continue IV micafungin -Follow-up blood cultures and yeast identification -continue renally dosed IV vancomycin added due to coag negative staph bacteremia x 7 days -Follow-up hepatitis B DNA PCR -Management of pseudocyst per GI, unclear if infected, seems not amenable for IR drainage per IR note -Due to fungemia, will need blood cultures to be negative at 5 days (03/23/2021) before new tunneled lines can be placed (Ok to place temporary ones) Yesika Denny MD, FACP [facility] ([facility]) O: [phone] F: [phone] Subjective Date of service: 03/21/21 Principal diagnosis: Hypoxia, fever Interval history: No fever. Got both his lines removed. Denies any complaints. Objective - Exam Narrative Exam: Physical Exam: Constitutional: Alert, no distress Head, Ears, Nose: Normocephalic, atraumatic. External ears, nose normal Eyes: Conjunctivae/corneas clear. No icterus. No ptosis. Neck: Supple, no meningeal signs Cardiovascular: S1, S2 normal. Respiratory: Good air entry, clear to auscultation bilaterally GI: Soft, non-tender; bowel sounds normal. No peritoneal signs Musculoskeletal: No pedal edema, no cyanosis. Right neck region dressings + Skin: No rash or abscess Hem/Lymphatic: No palpable cervical or supraclavicular nodes. No lymphangitis Psych: no agitation Neurological: Awake, alert, answering questions - Constitutional Vitals: Vital Signs Temp Pulse Resp BP Pulse Ox 98.2 F 78 18 160/90 78 L 03/21/21 04:51 03/21/21 04:51 03/20/21 23:40 03/21/21 10:06 03/21/21 10:06 Temperature -Last 24 Hours Temperature 98.2 F Temperature 98.9 F Temperature 98.0 F Temperature 98.6 F Temperature 98.2 F - Labs CBC & Chem 7: 03/21/21 03:23 03/21/21 03:23 Labs: Abnormal lab results 03/21/21 03/21/21 03/21/21 Range/Units 03:23 03:23 03:23 RBC 2.38 L (3.65-5.03) M/mm3 Hgb 7.4 L (11.8-15.2) gm/dl Hct 22.2 L (35.5-45.6) % RDW 16.6 H (13.2-15.2) % [place] % (Auto) 9.7 H (0.0-7.3) % Lymph # (Auto) 1.1 L (1.2-5.4) K/mm3 Seg Neutrophils % 73.1 H (40.0-70.0) % Heparin Anti-Xa Level 0.10 L (0.3-0.7) U.I./ml Potassium 3.3 L (3.6-5.0) mmol/L BUN 33 H (9-20) mg/dL Creatinine 6.2 H (0.8-1.3) mg/dL POC Glucose (70-105) mg/dL 03/21/21 Range/Units 13:05 RBC (3.65-5.03) M/mm3 Hgb (11.8-15.2) gm/dl Hct (35.5-45.6) % RDW (13.2-15.2) % [place] % (Auto) (0.0-7.3) % Lymph # (Auto) (1.2-5.4) K/mm3 Seg Neutrophils % (40.0-70.0) % Heparin Anti-Xa Level (0.3-0.7) U.I./ml Potassium (3.6-5.0) mmol/L BUN (9-20) mg/dL Creatinine (0.8-1.3) mg/dL POC Glucose 69 L (70-105) mg/dL
[2021-03-21] MEDS ORDERED: VANCOMYCIN 1,500 MG in SODIUM CHLORIDE 0.9% 500 ML 500 ML IV ONE (15:00)
--- NOTE | 2021-03-21 16:56 | Progress Note ---
Assessment and Plan 60-year-old male resident of [facility] with past history of congestive heart failure, hypertension, end-stage renal disease and Crohn's disease with extensive history of multiple abdominal surgeries for Small bowel obstruction/necrotic bowel, controlled anastomotic leak that is transitioning to a fistula presents to the ED with a chief complaint of fever hypoxemia acute respiratory failure. Patient received CT scan in the a.m. for work-up of hypoxemia and was found to have right sided pulmonary embolism. Patient was admitted placed on heparin drip. Patient was also complaining of some abdominal pain of which a CT scan of the abdomen and pelvis showed a 6 cm fluid collection between the stomach and the pancreas suggestive of a pancreatic pseudocyst. A/P -- Altered mental status/acute encephalopathy, improved Multifactorial hypoxemia, uremia with acute infectious process/candidemia -Treat underlying etiology -Optimize oxygenation --Abdominal pain likely due to pancreatic pseudocyst formation CT scan of the abdomen and pelvis showed a 6 cm fluid collection between the stomach and the pancreas suggestive of a pancreatic pseudocyst. --Placed surgical consult as well GI consult for pancreatic pseudocyst : No Surgical intervention Needed. -Provide supportive care with pain control -Above consultations -- Fever, resolved Could be secondary to pulmonary embolism versus other underlying infection Continue to treat underlying cause, follow culture result --Severe sepsis, likely due to underlying fungemia/candidemia Continue empiric antibiotics, ID consulted; follow recommendation --Bacteremia and candidemia, blood cultures growing yeast and Staph epidermidis Started on micafungin and vancomycin, will follow ID recommendation Ordered Repeat blood Cx, removed right sided permcath, wait blood cx neg till 03/[address] a new perm cath -- Pulmonary embolus IV heparin Supportive care, supplemental oxygenation -- ESRD (end stage renal disease) Patient on hemodialysis, renal consult has been ordered. --Hepatitis B core antibody positive Supportive care, monitor LFT ID and GI consult -- Elevated liver transaminase level Patient markedly elevated transaminase levels since last month. Differential diagnosis includes acute infection with hepatitis B. Patient has hepatitis B core antigen positive IgM. Will place ID consult. --History of ischemic bowel disease with necrotic small bowel s/p small bowel resection and primary anastomosis, req uiring right hemicolectomy on 01/03/2021, and multiple other surgeries. Recent CT abdomen pelvis showed no bowel obstruction Patient with 2 intra-abdominal drainage: General surgery consulted Patient also on TPN: Consulted dietary -- Anemia of chronic disease No evidence of acute GI blood loss anemia. s/p 2 units packed red blood cells transfusion --DVT prophylaxis, patient on heparin drip -- Full code status --Patient is critically ill Daily clinical course: 03/16/21: Hemoglobin 6.0 this morning, continue to transfuse. Monitor H&H carefully while patient on heparin drip. Noted general surgery and IR recommendation. Will consult GI for pancreatic pseudocyst. Continue to follow clinically with supportive care. Blood culture growing yeast we'll also add fl uconazole. 03/17/21: Patient receiving hemodialysis, BP appears to be stable, continue empiric antibiotic. Follow ID and GI recommendation. Per general surgery no intervention required for pancreatic pseudocyst. If patient condition return to BX may need to transfer to tertiary center for possible drainage. 03/18/21: Continue empiric antibiotics, hemodialysis per nephrology. Continue TPN. Patient H&H remained stable, continue to follow BMP. Transfer out of [facility] to telemetry. 03/19/21: Patient transferred to telemetry today. H&H remained stable. White count slightly elevated, will follow CBC. Repeat blood culture from 03/18/21 having no growth. Continue empiric antibiotics per ID and TPN. Discharge planning per general surgery and ID recommendation. Patient intermittently refusing care; counseled extensively he verbalized understanding and promised to follow hospital protocol and MD recommendations 10/21/20: Removed right-sided PermCath today per vascular as patient blood cu lture initially was positive for yeast. Continue empiric antibiotics per ID recommendation. Dialysis per nephrology. Continue TPN and follow BMP. Per ID: Due to fungemia, will need blood cultures to be negative at 5 days (03/23/2021) before new tunneled lines can be placed (Ok to place temporary ones if needed). 10/22/20; patient appears clinically stable, continue heparin drip and TPN. Patient last dialysis was on Saturday. Repeat blood culture need to be neg till for placing new PermCath for dialysis. Continue to monitor off dialysis. Final blood culture data and sensitivity is pending. Subjective Date of service: 03/21/21 Principal diagnosis: Hypoxia, fever Interval history: Patient seen and examined. Medical records and medication list reviewed. No acute event overnight noted by the RN. Patient denies any chest pain, mental status stable. Discussed plan of care at bedside with patient and with RN. Objective - Exam Narrative Exam: GENERAL: well-developed -[place] male lying on bed appeared to be in no discomfort. HEENT: Normocephalic. Atraumatic. No conjunctival congestion or icterus. P atient has moist mucous membranes. NECK: Supple. Trachea midline. CHEST/LUNGS: Clear to auscultated bilaterally, breathing nonlabored. No wheezes crackles or rhonchi. HEART/CARDIOVASCULAR: Regular in rate and rhythm. S1 and S2 positive. ABDOMEN: Abdomen is soft, with 2 intra-abdominal drainage in place. Patient has normal bowel sounds. SKIN: There is no rash. Warm and dry. NEURO: No focal motor deficit. Follows command. MUSCULOSKELETAL: No joint effusion or tenderness. EXTRIMITY: No edema, no cyanosis or clubbing. PSYCH: Cooperative. - Constitutional Vitals: Vital Signs - 12hr 03/21/21 03/21/21 03/21/21 09:25 10:06 13:04 Pulse Rate 71 Blood Pressure 160/90 168/96 O2 Sat by Pulse 95 78 L 91 Oximetry 03/21/21 13:10 Pulse Rate 71 Blood Pressure 168/96 O2 Sat by Pulse Oximetry - Labs CBC & Chem 7: 03/21/21 03:23 03/22/21 04:18 Labs: Abnormal lab results 03/21/21 03/21/21 03/21/21 Range/Units 03:23 03:23 03:23 RBC 2.38 L (3.65-5.03) M/mm3 Hgb 7.4 L (11.8-15.2) gm/dl Hct 22.2 L (35.5-45.6) % RDW 16.6 H (13.2-15.2) % [place] % (Auto) 9.7 H (0.0-7.3) % Lymph # (Auto) 1.1 L (1.2-5.4) K/mm3 Seg Neutrophils % 73.1 H (40.0-70.0) % Heparin Anti-Xa Level 0.10 L (0.3-0.7) U.I./ml Potassium 3.3 L (3.6-5.0) mmol/L BUN 33 H (9-20) mg/dL Creatinine 6.2 H (0.8-1.3) mg/dL POC Glucose (70-105) mg/dL 03/21/21 Range/Units 13:05 RBC (3.65-5.03) M/mm3 Hgb (11.8-15.2) gm/dl Hct (35.5-45.6) % RDW (13.2-15.2) % [place] % (Auto) (0.0-7.3) % Lymph # (Auto) (1.2-5.4) K/mm3 Seg Neutrophils % (40.0-70.0) % Heparin Anti-Xa Level (0.3-0.7) U.I./ml Potassium (3.6-5.0) mmol/L BUN (9-20) mg/dL Creatinine (0.8-1.3) mg/dL POC Glucose 69 L (70-105) mg/dL
[2021-03-21] MEDS ORDERED: TOTAL PARENTERAL NUTRITION 1,800 ML IV SCH (20:00)
[2021-03-21] MEDS: MICAFUNGIN 100 MG in SODIUM CHLORIDE 0.9% 100 ML IV SCH (20:35)
[2021-03-21] MEDS: hydrALAZINE 20 MG/1 ML INJ IV PRN (23:03)
[2021-03-22] MEDS: INSULIN REGULAR, HUMAN 100 UNITS/1 ML SUB-Q SCH ×4 (02:00→21:59)
[2021-03-22 05:06] LABS: Calcium 8.7 mg/dL (8.4-10.2)
[2021-03-22] MEDS: OCTREOTIDE 50 MCG in SODIUM CHLORIDE 0.9% 50 ML IV SCH ×3 (05:46→21:59)
[2021-03-22] MEDS: hydrALAZINE 20 MG/1 ML INJ IV PRN (06:31)
[2021-03-22] MEDS: CHOLECALCIFEROL (VIT D3) 1000 UNIT (25 mcg) TAB PO SCH (09:09)
[2021-03-22] MEDS: CALCIUM ACETATE 667 MG CAP PO SCH (09:09)
--- NOTE | 2021-03-22 09:30 | Progress Note ---
Assessment and Plan Assessment * End-stage renal disease on hemodialysis * Sepsis * Candidemia --Permcath removal - March 20, 2021 * Hypertension * Anemia secondary to ESRD * Secondary hyperparathyroidism Recommendations * Patient is s/p hemodialysis on Saturday. No acute indication for HD today * Reinsertion pending clearance by ID and negative blood cx - note rec that blood cx are negative x 5 days * ID following - Micafungin IV per ID * Epogen TIW prn * Continue antiHTN medications Subjective Date of service: 03/22/21 Principal diagnosis: Hypoxia, fever Interval history: Patient has no complaints today Objective - Vital Signs Vital signs: Vital Signs - 12hr 03/21/21 03/21/21 03/21/21 22:00 23:03 23:29 Temperature 98.5 F Pulse Rate 68 69 Pulse Rate [ 68 From Monitor] Respiratory 18 18 Rate Blood Pressure 178/84 185/92 O2 Sat by Pulse 94 96 Oximetry 03/22/21 03/22/21 03/22/21 04:00 04:22 06:31 Temperature 98.4 F Pulse Rate 69 61 70 Pulse Rate [ From Monitor] Respiratory 16 Rate Blood Pressure 194/90 180/96 O2 Sat by Pulse 98 Oximetry 03/22/21 07:56 Temperature 98.7 F Pulse Rate 69 Pulse Rate [ From Monitor] Respiratory 15 Rate Blood Pressure 164/87 O2 Sat by Pulse 98 Oximetry - General Appearance General appearance: well-developed, well-nourished EENT: ATNC Respiratory: Present: Clear to Ascultation Cardiology: regular, S1S2 Gastrointestinal: no distended Integumentary: no rash, warm and dry Neurologic: no focal deficit Psychiatric: cooperative - Lab 03/21/21 03:23 03/22/21 04:18 Most recent lab results ABG pH 7.367 (7.320-7.450) 03/15/21 12:54 ABG O2 Saturation 89.9 (0-100) 03/15/21 12:54 Calcium 8.7 mg/dL (8.4-10.2) 03/22/21 04:18 Phosphorus 4.50 mg/dL (2.5-4.5) D 03/22/21 04:18 Magnesium 2.00 mg/dL (1.7-2.3) 03/22/21 04:18 Medications & Allergies - Medications Allergies/Adverse Reactions: Allergies No Known Allergies Allergy (Verified 06/09/20 15:27) Home Medications: Home Medications Medication Instructions Recorded Confirmed Last Taken Type Albuterol Mdi (or & Nicu Only) 2 puff IH QID PRN #1 inhalation 04/01/17 03/15/21 10/31/20 09:00 Rx [ProAir HFA Inhaler] Calcium Acetate 667 mg PO DAILY 04/20/20 03/15/21 10/31/20 09:00 History Centrum Men's Tablet 1 tab PO DAILY 04/20/20 03/15/21 10/31/20 09:00 History Cinacalcet 30 mg PO DAILY 04/20/20 03/15/21 10/31/20 09:00 History Dialyvite with Zinc Tablet 1 tab PO DAILY 04/20/20 03/15/21 10/31/20 09:00 History Magnesium 250 mg PO BID 04/20/20 03/15/21 10/31/20 17:00 History Triamcinolone 0.1% 1 1000units TRANSDERMA DAILY 04/20/20 03/15/21 10/31/20 09:00 History Vit B12/Folic Acid/B6/Aa No.15 1,000 mg PO DAILY 04/20/20 03/15/21 10/31/20 09:00 History amLODIPine 10 mg PO DAILY 06/09/20 03/15/21 10/31/20 09:00 History AtorvaSTATin 40 mg PO HS 11/01/20 03/15/21 10/31/20 21:00 History Benadryl 25 mg PO HS 11/01/20 03/15/21 10/31/20 21:00 History Diclofenac 1 applic TRANSDERMA QID 11/01/20 03/15/21 10/31/20 19:00 History Vitamin D3 2,000 units PO QDAY 11/01/20 03/15/21 10/31/20 09:00 History carvediloL 12.5 mg PO DAILY 11/01/20 03/15/21 10/31/20 09:00 History hydrALAZINE 100 mg PO TID 11/01/20 03/15/21 10/31/20 19:00 History Fluticasone Propionate 1 spray INTRANASAL DAILY #1 02/21/21 03/15/21 Unknown Rx HYDROcodone/ACETAMINOPHEN 15 ml PO Q6H PRN #150 ml 02/21/21 03/15/21 Unknown Rx [Hydrocodon-Acetamin 7.5-325/15] Insulin Glargine [Lantus VIAL] 5 units SUB-Q QHS #1 units 02/21/21 03/15/21 Unknown Rx Lispro Insulin [HumaLOG] See Protocol SUB-Q Q6HR #1 vial 02/21/21 03/15/21 Unknown Rx Scopolamine [Transderm-Scop] 1 each TD Q3D #10 patch 02/21/21 03/15/21 Unknown Rx cloNIDine-TTS PATCH [Catapres-Tts 0.2 mg TD We #30 patch 02/21/21 03/15/21 Unknown Rx 0.2mg Patch] Active Medications: Generic Name Dose Route Start Last Admin Trade Name Freq PRN Reason Stop Dose Admin Acetaminophen 650 mg 03/15/21 19:31 03/17/21 20:29 Acetaminophen 325 Mg Tab PO 650 mg Q4H PRN Administration Pain MILD(1-3)/Fever >100.5/HULL Hydrocodone Bitart/Acetaminophen 7.5 mg 03/15/21 19:39 Hydrocodone/Acetaminophen 7.8-115vl-15ov Oral Liqd PO Q6H PRN Pain , Severe (7-10) Albuterol 2.5 mg 03/15/21 19:31 Albuterol 2.5 Mg/3 Ml Nebu IH Q4HRT PRN Shortness Of Breath Calcium Acetate 667 mg 03/16/21 10:00 03/22/21 09:09 Calcium Acetate 667 Mg Cap PO Not Given DAILY THOMAS Cholecalciferol 2,000 unit 03/16/21 10:00 03/22/21 09:09 Cholecalciferol (Vit D3) 1000 Unit (25 Mcg) Tab PO Not Given QDAY THOMAS Clonidine HCl 0.2 mg 03/21/21 12:00 03/21/21 13:10 Clonidine Tts 0.2 Mg/24 Hr Patch TD 0.2 mg Tu THOMAS Administration Dextrose 50 ml 03/15/21 19:46 Dextrose 50% In Water (25gm) 50 Ml Syringe IV Q30MIN PRN Hypoglycemia Protocol Famotidine 10 mg 03/15/21 22:00 03/21/21 21:51 Famotidine 20 Mg/2 Ml Inj IV 10 mg BID THOMAS Administration Heparin Sodium (Porcine) 3,200 unit 03/15/21 17:16 03/17/21 14:35 Heparin 10,000 Units/10 Ml Vial 40 unit/kg (3200 unit) 3,200 unit IV Administration Q6H PRN Anti-Xa Assay<0.1 units/ml Hydralazine HCl 5 mg 03/21/21 11:00 03/22/21 06:31 Hydralazine 20 Mg/1 Ml Inj IV 5 mg Q30MIN PRN Administration Hypertension Hydromorphone HCl 0.5 mg 03/15/21 19:31 Hydromorphone 1 Mg/1 Ml Inj IV Q3H PRN Pain , Severe (7-10) Sodium Chloride 100 mls @ 999 mls/hr 03/15/21 16:00 Nacl 0.9% IV [place] PRN Hypotension Heparin Sodium/Sodium Chloride 25,000 unit in 500 mls @ 23 mls/hr 03/16/21 07:00 03/21/21 23:44 Heparin/ 0.45% Nacl-25,000 Unit/500 Ml IV 2,050 units/hr TITR THOMAS 41 mls/hr Titration Protocol 1,150 UNITS/HR Micafungin Sodium 100 mg/ 100 mls @ 100 mls/hr 03/16/21 19:00 03/21/21 20:35 Sodium Chloride IV 100 mls/hr Q24H THOMAS Administration Protocol Octreotide Acetate 50 mcg/ 51 mls @ 100 mls/hr 03/17/21 14:00 03/22/21 05:46 Sodium Chloride IV 100 mls/hr Q8HR THOMAS Administration Dextrose/Sodium Chloride 1,000 mls @ 42 mls/hr 03/20/21 16:00 D5ns IV DIRECT THOMAS Amino Acids/Electrolytes/Dextrose 1,800 mls @ 75 mls/hr 03/21/21 20:00 03/21/21 20:53 Tpn Adult IV 03/22/21 19:59 75 mls/hr DAILY@2000 [facility] Administration Protocol Insulin Human Regular 0 units 03/15/21 20:00 03/22/21 09:09 Insulin Regular, Human 100 Units/1 Ml SUB-Q Not Given Q6H [facility] Protocol Morphine Sulfate 2 mg 03/15/21 19:31 03/16/21 13:27 Morphine 2 Mg/1 Ml Inj IV 2 mg Q4H PRN Administration Pain, Moderate (4-6) Ondansetron HCl 4 mg 03/15/21 19:31 Ondansetron 4 Mg/2 Ml Inj IV Q8H PRN Nausea And Vomiting Scopolamine 1 each 03/16/21 10:00 03/19/21 09:35 Scopolamine Transdermal Patch 72 Hr TD 1 each Q3D THOMAS Administration Sodium Chloride 10 ml 03/15/21 22:00 03/21/21 21:51 Sodium Chloride 0.9% 10 Ml Flush Syringe IV 10 ml BID THOMAS Administration Sodium Chloride 10 ml 03/15/21 20:31 Sodium Chloride 0.9% 10 Ml Flush Syringe IV PRN PRN LINE FLUSH
[2021-03-22] MEDS: SCOPOLAMINE TRANSDERMAL PATCH 72 HR TD SCH (10:01)
[2021-03-22] MEDS: FAMOTIDINE 20 MG/2 ML INJ IV SCH ×2 (10:01→21:56)
[2021-03-22] MEDS ORDERED: TRIAMCINOLONE 0.1% TRANSDERMA SCH (10:15)
[2021-03-22] MEDS ORDERED: cloNIDine TTS 0.3 MG/24 HR PATCH TD SCH (11:00)
[2021-03-22] MEDS ORDERED: cloNIDine TTS 0.1 MG/24 HR PATCH TD SCH (11:30)
--- NOTE | 2021-03-22 12:23 | Progress Note ---
Assessment and Plan Cultures: Blood culture 03/15/2021 growing yeast, coag negative staph in multiple bottles 03/16/2021 urine culture: No growth 03/18/2021 blood culture: No growth so far Assessment: 61-year-old male with history of ESRD initially on PD, CHF, , Crohn's disease, CHF, gastroesophageal reflux disease, status post prolonged hospital complicated stay from 12/22/2020-02/21/2021 due to complicated small bowel obstruction with necrotic small bowel s/p small bowel resection and primary anastomosis, requiring right hemicolectomy on 01/03/2021, complicated with a Streptococcus bovis and Prevotella bacteremia on 12/22/2020, complicated with perforated anastomosis, s/p multiple surgeries readmitted on 03/15/2021 secondary to fever, hypoxia and altered mental status/somnolence: #Severe sepsis: likely secondary to candidemia. #Candidemia: Yeast present in several bottles of blood cultures. Likely due to intra-abdominal collection versus central line infection, patient had dialysis catheter as well as tunneled line, is on TPN. TTE without obvious vegetations on the valves. Lines removed 03/20/2021 #Coag negative staph bacteremia: Possibly due to central line infection. #Pancreatic pseudocyst vs intra-abdominal collection: CT with 6.6 x 3.3 x 4.8 cm pseudocyst could be source of candidemia. CRP 14.9. Lipase normal. #Complicated small bowel obstruction: with necrotic small bowel s/p small bowel resection and primary anastomosis, requiring right hemicolectomy on 01/03/2021, and multiple other surgeries and abx. #Acute pulmonary embolism: On anticoagulation. #Elevated LFTs: Likely secondary to sepsis/pancreatic pseudocyst more than acute hepatitis B infection. Patient noted to have hepatitis B core IgM positive ? False positive versus acute hepatitis B less likely. #ESRD on hemodialysis. Renally adjust antibiotics. #Acute encephalopathy: Likely secondary to sepsis. Improving. Recommendations: -Continue IV micafungin due to non-albicans, final ID pending, sent to reference lab -Follow-up blood cultures and yeast identification -continue renally dosed IV vancomycin added due to coag negative staph bacteremia x 7 days -Follow-up hepatitis B DNA PCR -Management of pseudocyst per GI, unclear if infected, seems not amenable for IR drainage per IR note -Due to fungemia, will need blood cultures to be negative at 5 days (03/23/2021) before new tunneled lines can be placed (Ok to place temporary ones if needed) Yesika Denny MD, FACP [facility] ([facility]) O: [phone] F: [phone] Subjective Date of service: 03/22/21 Principal diagnosis: Hypoxia, fever Interval history: No fever. Denies any complaints. Sitting in bed. Objective - Exam Narrative Exam: Physical Exam: Constitutional: Alert, no distress Head, Ears, Nose: Normocephalic, atraumatic. External ears, nose normal Eyes: Conjunctivae/corneas clear. No icterus. No ptosis. Neck: Supple, no meningeal signs Cardiovascular: S1, S2 normal. Respiratory: Good air entry, clear to auscultation bilaterally GI: Soft, non-tender; bowel sounds normal. No peritoneal signs. Drain + Musculoskeletal: No pedal edema, no cyanosis. Right neck region dressings + Skin: No rash or abscess Hem/Lymphatic: No palpable cervical or supraclavicular nodes. No lymphangitis Psych: no agitation Neurological: Awake, alert, answering questions - Constitutional Vitals: Vital Signs Temp Pulse Resp BP Pulse Ox 97.2 F L 70 18 177/91 99 03/22/21 11:04 03/22/21 11:04 03/22/21 11:04 03/22/21 11:04 03/22/21 11:04 Temperature -Last 24 Hours Temperature 97.2 F Temperature 98.7 F Temperature 98.4 F Temperature 98.5 F Temperature 99.5 F - Labs CBC & Chem 7: 03/21/21 03:23 03/22/21 04:18 Labs: Abnormal lab results 03/21/21 03/22/21 03/22/21 Range/Units 13:05 04:18 08:12 Carbon Dioxide 21 L (22-30) mmol/L BUN 39 H (9-20) mg/dL Creatinine 8.0 H (0.8-1.3) mg/dL Glucose 58 L (75-100) mg/dL POC Glucose 69 L 120 H (70-105) mg/dL
[2021-03-22] MEDS: TRIAMCINOLONE 0.1% CREAM 15 GM TP SCH (13:14)
[2021-03-22] MEDS: HEPARIN/ 0.45% NACL DRIP 25,000 UNIT/500 ML BAG IV SCH (16:12)
--- NOTE | 2021-03-22 16:59 | Progress Note ---
Assessment and Plan 60-year-old male resident of [facility] with past history of congestive heart failure, hypertension, end-stage renal disease and Crohn's disease with extensive history of multiple abdominal surgeries for Small bowel obstruction/necrotic bowel, controlled anastomotic leak that is transitioning to a fistula presents to the ED with a chief complaint of fever hypoxemia acute respiratory failure. Patient received CT scan in the a.m. for work-up of hypoxemia and was found to have right sided pulmonary embolism. Patient was admitted placed on heparin drip. Patient was also complaining of some abdominal pain of which a CT scan of the abdomen and pelvis showed a 6 cm fluid collection between the stomach and the pancreas suggestive of a pancreatic pseudocyst. A/P -- Altered mental status/acute encephalopathy, improved Multifactorial hypoxemia, uremia with acute infectious process/candidemia -Treat underlying etiology -Optimize oxygenation --Abdominal pain likely due to pancreatic pseudocyst formation CT scan of the abdomen and pelvis showed a 6 cm fluid collection between the stomach and the pancreas suggestive of a pancreatic pseudocyst. --Placed surgical consult as well GI consult for pancreatic pseudocyst : No Surgical intervention Needed. -Provide supportive care with pain control -Above consultations -- Fever, resolved Could be secondary to pulmonary embolism versus other underlying infection Continue to treat underlying cause, follow culture result --Severe sepsis, likely due to underlying fungemia/candidemia Continue empiric antibiotics, ID consulted; follow recommendation --Bacteremia and candidemia, blood cultures growing yeast and Staph epidermidis Started on micafungin and vancomycin, will follow ID recommendation Ordered Repeat blood Cx, removed right sided permcath, wait blood cx neg till 03/[address] a new perm cath -- Pulmonary embolus IV heparin Supportive care, supplemental oxygenation -- ESRD (end stage renal disease) Patient on hemodialysis, renal consult has been ordered. --Hepatitis B core antibody positive Supportive care, monitor LFT ID and GI consult -- Elevated liver transaminase level Patient markedly elevated transaminase levels since last month. Differential diagnosis includes acute infection with hepatitis B. Patient has hepatitis B core antigen positive IgM. Will place ID consult. --History of ischemic bowel disease with necrotic small bowel s/p small bowel resection and primary anastomosis, req uiring right hemicolectomy on 01/03/2021, and multiple other surgeries. Recent CT abdomen pelvis showed no bowel obstruction Patient with 2 intra-abdominal drainage: General surgery consulted Patient also on TPN: Consulted dietary -- Anemia of chronic disease No evidence of acute GI blood loss anemia. s/p 2 units packed red blood cells transfusion --DVT prophylaxis, patient on heparin drip -- Full code status --Patient is critically ill Daily clinical course: 03/16/21: Hemoglobin 6.0 this morning, continue to transfuse. Monitor H&H carefully while patient on heparin drip. Noted general surgery and IR recommendation. Will consult GI for pancreatic pseudocyst. Continue to follow clinically with supportive care. Blood culture growing yeast we'll also add fl uconazole. 03/17/21: Patient receiving hemodialysis, BP appears to be stable, continue empiric antibiotic. Follow ID and GI recommendation. Per general surgery no intervention required for pancreatic pseudocyst. If patient condition return to BX may need to transfer to tertiary center for possible drainage. 03/18/21: Continue empiric antibiotics, hemodialysis per nephrology. Continue TPN. Patient H&H remained stable, continue to follow BMP. Transfer out of [facility] to telemetry. 03/19/21: Patient transferred to telemetry today. H&H remained stable. White count slightly elevated, will follow CBC. Repeat blood culture from 03/18/21 having no growth. Continue empiric antibiotics per ID and TPN. Discharge planning per general surgery and ID recommendation. Patient intermittently refusing care; counseled extensively he verbalized understanding and promised to follow hospital protocol and MD recommendations 10/21/20: Removed right-sided PermCath today per vascular as patient blood cu lture initially was positive for yeast. Continue empiric antibiotics per ID recommendation. Dialysis per nephrology. Continue TPN and follow BMP. Per ID: Due to fungemia, will need blood cultures to be negative at 5 days (03/23/2021) before new tunneled lines can be placed (Ok to place temporary ones if needed). 10/22/20; patient appears clinically stable, continue heparin drip and TPN. Patient last dialysis was on Saturday. Repeat blood culture need to be neg till for placing new PermCath for dialysis. Continue to monitor off dialysis. Final blood culture data and sensitivity is pending. 10/23/20: continue heparin drip and TPN. Patient last dialysis was on Saturday. Repeat blood culture need to be neg till 2/29/21 for placing new PermCath for dialysis. Final blood culture data and sensitivity is pending. Planned to place permcath tomorrow by vascular if repeat blood cx remains neg. Subjective Date of service: 03/22/21 Principal diagnosis: Hypoxia, fever Interval history: Patient seen and examined. Medical records and medication list reviewed. No acute event overnight noted by the RN. Patient denies any chest pain, mental status stable. Discussed plan of care at bedside with patient and with RN. Objective - Exam Narrative Exam: GENERAL: well-developed -[place] male lying on bed appeared to be in no discomfort. HEENT: Normocephalic. Atraumatic. No conjunctival congestion or icterus. Patient has moist mucous membranes. NECK: Supple. Trachea midline. CHEST/LUNGS: Clear to auscultated bilaterally, breathing nonlabored. No wheezes crackles or rhonchi. HEART/CARDIOVASCULAR: Regular in rate and rhythm. S1 and S2 positive. ABDOMEN: Abdomen is soft, with 2 intra-abdominal drainage in place. Patient has normal bowel sounds. SKIN: There is no rash. Warm and dry. NEURO: No focal motor deficit. Follows command. MUSCULOSKELETAL: No joint effusion or tenderness. EXTRIMITY: No edema, no cyanosis or clubbing. PSYCH: Cooperative. - Constitutional Vitals: Vital Signs - 12hr 03/22/21 03/22/21 03/22/21 06:31 07:56 10:00 Temperature 98.7 F Pulse Rate 70 69 Pulse Rate [ 68 From Monitor] Respiratory 15 18 Rate Blood Pressure 180/96 164/87 O2 Sat by Pulse 98 98 Oximetry 03/22/21 03/22/21 11:04 13:14 Temperature 97.2 F L Pulse Rate 70 70 Pulse Rate [ From Monitor] Respiratory 18 Rate Blood Pressure 177/91 177/91 O2 Sat by Pulse 99 Oximetry - Labs CBC & Chem 7: 03/23/21 05:20 03/23/21 05:20 Labs: Abnormal lab results 03/22/21 03/22/21 Range/Units 04:18 08:12 Carbon Dioxide 21 L (22-30) mmol/L BUN 39 H (9-20) mg/dL Creatinine 8.0 H (0.8-1.3) mg/dL Glucose 58 L (75-100) mg/dL POC Glucose 120 H (70-105) mg/dL
[2021-03-22] MEDS ORDERED: TOTAL PARENTERAL NUTRITION 1,800 ML IV SCH (20:00)
[2021-03-22] MEDS ORDERED: FAT EMULSIONS 20% 250 ML IV SCH (20:00)
[2021-03-22] MEDS: MICAFUNGIN 100 MG in SODIUM CHLORIDE 0.9% 100 ML IV SCH (21:58)
--- NOTE | 2021-03-22 22:05 | Event Note ---
Date: 03/22/21 NPO after MN except sips of water with meds Plan for permcath placement tomorrow and tunneled PICC tomorrow as long as BCx remain NGTD.
[2021-03-23] MEDS: INSULIN REGULAR, HUMAN 100 UNITS/1 ML SUB-Q SCH ×4 (02:38→21:48)
[2021-03-23] MEDS: OCTREOTIDE 50 MCG in SODIUM CHLORIDE 0.9% 50 ML IV SCH ×3 (06:42→21:40)
[2021-03-23 06:43] LABS: Basophils # (Auto) 0.1 K/mm3 (0.0-0.1); Basophils % (Auto) 0.8 % (0.0-1.8); Eosinophils # (Auto) 0.3 K/mm3 (0.0-0.4); Hematocrit 21.3 % (35.5-45.6); Hemoglobin 6.8 gm/dl (11.8-15.2); Lymphocytes % (Auto) 15.5 % (13.4-35.0); Mean Corpuscular HGB Conc 32 % (32-34); Mean Corpuscular Volume 95 fl (84-94); Monocytes # (Auto) 0.5 K/mm3 (0.0-0.8); Monocytes % (Auto) 7.4 % (0.0-7.3); Platelet Count 311 K/mm3 (140-440); Red Blood Count 2.24 M/mm3 (3.65-5.03)
[2021-03-23] MEDS ORDERED: HEPARIN 10,000 UNITS/10 ML VIAL IV ONE (06:49)
[2021-03-23 06:53] LABS: Calcium 8.9 mg/dL (8.4-10.2)
[2021-03-23] MEDS ORDERED: SODIUM CHLORIDE 0.9% 500 ML 500 ML IV SCH (06:54)
--- NOTE | 2021-03-23 08:05 | Progress Note ---
Assessment and Plan Assessment * End-stage renal disease on hemodialysis * Sepsis * Candidemia --Permcath removal - March 20, 2021 * Hypertension * Anemia secondary to ESRD * Secondary hyperparathyroidism Recommendations * Patient is s/p hemodialysis on Saturday. No acute indication for HD today * Currently NPO for anticipated permcath insertion - Note ID rec that blood cx are negative x 5 days * ID following - Micafungin IV per ID * Epogen TIW prn * Continue antiHTN medications Subjective Date of service: 03/23/21 Principal diagnosis: Hypoxia, fever Interval history: Patient resting in bed comfortably. 24h events noted Objective - Vital Signs Vital signs: Vital Signs - 12hr 03/22/21 03/22/21 03/22/21 20:10 22:00 23:02 Temperature 98.2 F 98.1 F Pulse Rate 66 67 Respiratory 18 16 Rate Blood Pressure 180/99 177/87 O2 Sat by Pulse 93 98 90 Oximetry 03/23/21 03:35 Temperature 98.2 F Pulse Rate 63 Respiratory 19 Rate Blood Pressure 174/83 O2 Sat by Pulse 96 Oximetry - General Appearance General appearance: well-developed, well-nourished EENT: ATNC Respiratory: Present: Clear to Ascultation Cardiology: regular, S1S2 Integumentary: no rash, warm and dry - Lab 03/23/21 05:20 03/23/21 05:20 Most recent lab results ABG pH 7.367 (7.320-7.450) 03/15/21 12:54 ABG O2 Saturation 89.9 (0-100) 03/15/21 12:54 Calcium 8.9 mg/dL (8.4-10.2) 03/23/21 05:20 Phosphorus 5.80 mg/dL (2.5-4.5) H D 03/23/21 05:20 Magnesium 2.00 mg/dL (1.7-2.3) 03/22/21 04:18 Medications & Allergies - Medications Allergies/Adverse Reactions: Allergies No Known Allergies Allergy (Verified 06/09/20 15:27) Home Medications: Home Medications Medication Instructions Recorded Confirmed Last Taken Type Albuterol Mdi (or & Nicu Only) 2 puff IH QID PRN #1 inhalation 04/01/17 03/15/21 10/31/20 09:00 Rx [ProAir HFA Inhaler] Calcium Acetate 667 mg PO DAILY 04/20/20 03/15/21 10/31/20 09:00 History Centrum Men's Tablet 1 tab PO DAILY 04/20/20 03/15/21 10/31/20 09:00 History Cinacalcet 30 mg PO DAILY 04/20/20 03/15/21 10/31/20 09:00 History Dialyvite with Zinc Tablet 1 tab PO DAILY 04/20/20 03/15/21 10/31/20 09:00 History Magnesium 250 mg PO BID 04/20/20 03/15/21 10/31/20 17:00 History Triamcinolone 0.1% 1 1000units TRANSDERMA DAILY 04/20/20 03/15/21 10/31/20 09:00 History Vit B12/Folic Acid/B6/Aa No.15 1,000 mg PO DAILY 04/20/20 03/15/21 10/31/20 09:00 History amLODIPine 10 mg PO DAILY 06/09/20 03/15/21 10/31/20 09:00 History AtorvaSTATin 40 mg PO HS 11/01/20 03/15/21 10/31/20 21:00 History Benadryl 25 mg PO HS 11/01/20 03/15/21 10/31/20 21:00 History Diclofenac 1 applic TRANSDERMA QID 11/01/20 03/15/21 10/31/20 19:00 History Vitamin D3 2,000 units PO QDAY 11/01/20 03/15/21 10/31/20 09:00 History carvediloL 12.5 mg PO DAILY 11/01/20 03/15/21 10/31/20 09:00 History hydrALAZINE 100 mg PO TID 11/01/20 03/15/21 10/31/20 19:00 History Fluticasone Propionate 1 spray INTRANASAL DAILY #1 02/21/21 03/15/21 Unknown Rx HYDROcodone/ACETAMINOPHEN 15 ml PO Q6H PRN #150 ml 02/21/21 03/15/21 Unknown Rx [Hydrocodon-Acetamin 7.5-325/15] Insulin Glargine [Lantus VIAL] 5 units SUB-Q QHS #1 units 02/21/21 03/15/21 Unknown Rx Lispro Insulin [HumaLOG] See Protocol SUB-Q Q6HR #1 vial 02/21/21 03/15/21 Unknown Rx Scopolamine [Transderm-Scop] 1 each TD Q3D #10 patch 02/21/21 03/15/21 Unknown Rx cloNIDine-TTS PATCH [Catapres-Tts 0.2 mg TD We #30 patch 02/21/21 03/15/21 Unknown Rx 0.2mg Patch] Active Medications: Generic Name Dose Route Start Last Admin Trade Name Freq PRN Reason Stop Dose Admin Acetaminophen 650 mg 03/15/21 19:31 03/17/21 20:29 Acetaminophen 325 Mg Tab PO 650 mg Q4H PRN Administration Pain MILD(1-3)/Fever >100.5/HULL Hydrocodone Bitart/Acetaminophen 7.5 mg 03/15/21 19:39 Hydrocodone/Acetaminophen [id number] Oral Liqd PO Q6H PRN Pain , Severe (7-10) Albuterol 2.5 mg 03/15/21 19:31 Albuterol 2.5 Mg/3 Ml Nebu IH Q4HRT PRN Shortness Of Breath Calcium Acetate 667 mg 03/16/21 10:00 03/22/21 09:09 Calcium Acetate 667 Mg Cap PO Not Given DAILY THOMAS Cholecalciferol 2,000 unit 03/16/21 10:00 03/22/21 09:09 Cholecalciferol (Vit D3) 1000 Unit (25 Mcg) Tab PO Not Given QDAY THOMAS Clonidine HCl 0.3 mg 03/28/21 10:00 Clonidine Tts 0.3 Mg/24 Hr Patch TD Tu THOMAS Dextrose 50 ml 03/15/21 19:46 Dextrose 50% In Water (25gm) 50 Ml Syringe IV Q30MIN PRN Hypoglycemia Protocol Famotidine 10 mg 03/15/21 22:00 03/22/21 21:56 Famotidine 20 Mg/2 Ml Inj IV 10 mg BID THOMAS Administration Heparin Sodium (Porcine) 3,200 unit 03/15/21 17:16 03/17/21 14:35 Heparin 10,000 Units/10 Ml Vial 40 unit/kg (3200 unit) 3,200 unit IV Administration Q6H PRN Anti-Xa Assay<0.1 units/ml Hydralazine HCl 10 mg 03/22/21 10:05 Hydralazine 20 Mg/1 Ml Inj IV Q30MIN PRN Hypertension Hydromorphone HCl 0.5 mg 03/15/21 19:31 Hydromorphone 1 Mg/1 Ml Inj IV Q3H PRN Pain , Severe (7-10) Sodium Chloride 100 mls @ 999 mls/hr 03/15/21 16:00 Nacl 0.9% IV RYLAND PRN Hypotension Heparin Sodium/Sodium Chloride 25,000 unit in 500 mls @ 23 mls/hr 03/16/21 07:00 03/22/21 16:12 Heparin/ 0.45% Nacl-25,000 Unit/500 Ml IV 2,050 units/hr TITR THOMAS 41 mls/hr Administration Protocol 1,150 UNITS/HR Micafungin Sodium 100 mg/ 100 mls @ 100 mls/hr 03/16/21 19:00 03/22/21 21:58 Sodium Chloride IV 100 mls/hr Q24H THOMAS Administration Protocol Octreotide Acetate 50 mcg/ 51 mls @ 100 mls/hr 03/17/21 14:00 03/23/21 06:42 Sodium Chloride IV 100 mls/hr Q8HR THOMAS Administration Dextrose/Sodium Chloride 1,000 mls @ 42 mls/hr 03/20/21 16:00 D5ns IV DIRECT THOMAS Amino Acids/Electrolytes/Dextrose 1,800 mls @ 75 mls/hr 03/22/21 20:00 03/22/21 21:56 Tpn Adult IV 03/23/21 19:59 75 mls/hr DAILY@2000 THOMAS Administration Protocol Sodium Chloride 500 mls @ 0 mls/hr 03/23/21 06:54 Nacl 0.9% 500 Ml IV 03/23/21 23:00 ONCE THOMAS As Directed Insulin Human Regular 0 units 03/15/21 20:00 03/23/21 02:38 Insulin Regular, Human 100 Units/1 Ml SUB-Q Not Given Q6H [facility] Protocol Morphine Sulfate 2 mg 03/15/21 19:31 03/16/21 13:27 Morphine 2 Mg/1 Ml Inj IV 2 mg Q4H PRN Administration Pain, Moderate (4-6) Ondansetron HCl 4 mg 03/15/21 19:31 Ondansetron 4 Mg/2 Ml Inj IV Q8H PRN Nausea And Vomiting Scopolamine 1 each 03/16/21 10:00 03/22/21 10:01 Scopolamine Transdermal Patch 72 Hr TD 1 each Q3D THOMAS Administration Sodium Chloride 10 ml 03/15/21 22:00 03/23/21 06:42 Sodium Chloride 0.9% 10 Ml Flush Syringe IV 10 ml BID THOMAS Administration Sodium Chloride 10 ml 03/15/21 20:31 Sodium Chloride 0.9% 10 Ml Flush Syringe IV PRN PRN LINE FLUSH Triamcinolone Acetonide 1 applic 03/22/21 12:00 03/22/21 13:14 Triamcinolone 0.1% Cream 15 Gm TP 1 applic DAILY THOMAS Administration
--- NOTE | 2021-03-23 09:35 | Event Note ---
Date: 03/23/21 Patient with a history of bacteremia and fungemia with end-stage renal disease on hemodialysis as well as TPN requirements. Per ID, the patient needs to be 5 days prior to placement of tunneled lines. We will bring the patient down to [facility] today for placement of a dialysis catheter with a pigtail which will allow the patient to both receive dialysis and TPN. If his cultures remain negative, this can be converted to a tunneled hemodialysis catheter and tunneled central venous catheter on Saturday.
[2021-03-23] MEDS: CALCIUM ACETATE 667 MG CAP PO SCH (11:06)
[2021-03-23] MEDS: FAMOTIDINE 20 MG/2 ML INJ IV SCH ×2 (11:06→21:40)
[2021-03-23] MEDS: TRIAMCINOLONE 0.1% CREAM 15 GM TP SCH (11:06)
[2021-03-23] MEDS: CHOLECALCIFEROL (VIT D3) 1000 UNIT (25 mcg) TAB PO SCH (11:07)
--- NOTE | 2021-03-23 12:08 | Progress Note ---
Assessment and Plan Cultures: Blood culture 03/15/2021 growing yeast, coag negative staph in multiple bottles 03/16/2021 urine culture: No growth 03/18/2021 blood culture: No growth so far Assessment: 61-year-old male with history of ESRD initially on PD, CHF, , Crohn's disease, CHF, gastroesophageal reflux disease, status post prolonged hospital complicated stay from 12/22/2020-02/21/2021 due to complicated small bowel obstruction with necrotic small bowel s/p small bowel resection and primary anastomosis, requiring right hemicolectomy on 01/03/2021, complicated with a Streptococcus bovis and Prevotella bacteremia on 12/22/2020, complicated with perforated anastomosis, s/p multiple surgeries readmitted on 03/15/2021 secondary to fever, hypoxia and altered mental status/somnolence: #Severe sepsis: likely secondary to candidemia. #Candidemia: Yeast present in several bottles of blood cultures. Likely due to intra-abdominal collection versus central line infection, patient had dialysis catheter as well as tunneled line, is on TPN. TTE without obvious vegetations on the valves. Lines removed 03/20/2021. #Coag negative staph bacteremia: Possibly due to central line infection. #Pancreatic pseudocyst vs intra-abdominal collection: CT with 6.6 x 3.3 x 4.8 cm pseudocyst could be source of candidemia. CRP 14.9. Lipase normal. #Complicated small bowel obstruction: with necrotic small bowel s/p small bowel resection and primary anastomosis, requiring right hemicolectomy on 01/03/2021, and multiple other surgeries and abx. #Acute pulmonary embolism: On anticoagulation. #Elevated LFTs: Likely secondary to sepsis/pancreatic pseudocyst more than acute hepatitis B infection. Patient noted to have hepatitis B core IgM positive ? False positive versus acute hepatitis B less likely. #ESRD on hemodialysis. Renally adjust antibiotics. #Acute encephalopathy: Likely secondary to sepsis. Improving. Recommendations: -Continue IV micafungin due to non-albicans, final ID pending, sent to reference lab -continue renally dosed IV vancomycin added due to coag negative staph bacteremia x 7 days -Follow-up hepatitis B DNA PCR -Management of pseudocyst per GI, unclear if infected, seems not amenable for IR drainage per IR note -blood cultures have remained negative at 5 days, hence OK for new tunneled lines for HD and TPN. Remains at risk of infection Yesika Denny MD, FACP [facility] ([facility]) O: [phone] F: [phone] Subjective Date of service: 03/23/21 Principal diagnosis: Hypoxia, fever Interval history: Denies any complaints. Sitting in bed. Afebrile. No shortness of breath. Objective - Exam Narrative Exam: Physical Exam: Constitutional: Alert, no distress Head, Ears, Nose: Normocephalic, atraumatic. External ears, nose normal Eyes: Conjunctivae/corneas clear. No icterus. No ptosis. Neck: Supple, no meningeal signs Cardiovascular: S1, S2 normal. Respiratory: Good air entry, clear to auscultation bilaterally GI: Soft, non-tender; bowel sounds normal. No peritoneal signs. Drain + Musculoskeletal: No pedal edema, no cyanosis. Right neck region dressings + Skin: No rash or abscess Hem/Lymphatic: No palpable cervical or supraclavicular nodes. No lymphangitis Psych: no agitation Neurological: Awake, alert, answering questions - Constitutional Vitals: Vital Signs Temp Pulse Resp BP Pulse Ox 98.4 F 65 18 170/74 100 03/23/21 12:03 03/23/21 12:03 03/23/21 12:03 03/23/21 12:03 03/23/21 12:03 Temperature -Last 24 Hours Temperature 98.4 F Temperature 98.4 F Temperature 98.2 F Temperature 98.1 F Temperature 98.2 F Temperature 98.3 F - Labs CBC & Chem 7: 03/23/21 05:20 03/23/21 05:20 Labs: Abnormal lab results 03/22/21 03/23/21 03/23/21 Range/Units 23:44 05:20 05:20 RBC 2.24 L (3.65-5.03) M/mm3 Hgb 6.8 L (11.8-15.2) gm/dl Hct 21.3 L (35.5-45.6) % MCV 95 H (84-94) fl RDW 18.0 H (13.2-15.2) % Emanuel % (Auto) 7.4 H (0.0-7.3) % Lymph # (Auto) 1.0 L (1.2-5.4) K/mm3 Seg Neutrophils % 72.3 H (40.0-70.0) % Heparin Anti-Xa Level < 0.10 L (0.3-0.7) U.I./ml Carbon Dioxide 20 L (22-30) mmol/L BUN 46 H (9-20) mg/dL Creatinine 10.5 H (0.8-1.3) mg/dL POC Glucose (70-105) mg/dL Phosphorus 5.80 H D (2.5-4.5) mg/dL 03/23/21 Range/Units 11:29 RBC (3.65-5.03) M/mm3 Hgb (11.8-15.2) gm/dl Hct (35.5-45.6) % MCV (84-94) fl RDW (13.2-15.2) % Emanuel % (Auto) (0.0-7.3) % Lymph # (Auto) (1.2-5.4) K/mm3 Seg Neutrophils % (40.0-70.0) % Heparin Anti-Xa Level (0.3-0.7) U.I./ml Carbon Dioxide (22-30) mmol/L BUN (9-20) mg/dL Creatinine (0.8-1.3) mg/dL POC Glucose 120 H (70-105) mg/dL Phosphorus (2.5-4.5) mg/dL
[2021-03-23] MEDS ORDERED: HEPARIN/NS 5000 UNIT/500ML 500 ML IR ONE (12:43)
[2021-03-23] MEDS ORDERED: HEPARIN 10,000 UNITS/10 ML VIAL ONE (12:43)
[2021-03-23] MEDS ORDERED: LIDOCAINE (1%) 10 MG/1 ML VIAL 20 ML MDV ONE (12:43)
[2021-03-23] MEDS ORDERED: MIDAZOLAM 2 MG/2 ML INJ ONE (12:51)
[2021-03-23] MEDS ORDERED: fentaNYL 100 MCG/2 ML INJ ONE (12:51)
[2021-03-23] MEDS ORDERED: SODIUM CHLORIDE 0.9% 100 ML ONE (12:53)
--- NOTE | 2021-03-23 13:13 | Operative Report ---
Operative Report Operative Report: Exam: Ultrasound and fluoroscopic guided placement of dialysis catheter with pigtail for IV fluids Clinical indication: Patient with a history of multiple recurrent episodes of bacteremia and fungemia with removal of tunneled hemodialysis catheters and central tunneled central venous catheters from both the left and the right. Bandages are still in place for both. Patient with blood cultures negative now for 5 days. Date: 03/23/2021 Procedure: Following an explanation of the risk, benefits and alternatives; written informed consent was obtained. The patient was brought to the angiographic suite and placed in supine position on the examination table. Initial ultrasound evaluation of the neck demonstrated a patent left internal jugular vein. The patient's left neck was prepped and draped in usual sterile fashion. 1% lidocaine was used for anesthesia. Under ultrasound guidance, the left internal jugular vein was cannulated with a 7 cm 18-gauge needle. A 0.035 guidewire was advanced below the level of the heart into the right hepatic vein to document intravenous positioning and for anchoring. The needle was removed. Following serial dilation over the guidewire under fluoroscopy, a 20 cm dialysis catheter with the pigtail was advanced over the guidewire under fluoroscopy and positioned with the tip in the proximal right atrium. The guidewire was removed. Both ports flushed and aspirated easily and were then locked with appropriate volumes of heparin. The catheter was securely fastened to the skin surface using 2-0 Ethilon suture. A sterile dressing was then applied. The patient tolerated the procedure well. There were no immediate post procedure complication. Conscious sedation was performed under the guidance of radiologic nursing. Continuous cardiopulmonary monitoring was utilized. Impression: Ultrasound fluoroscopic guided placement of dialysis catheter with pigtail for IV fluids by the left internal jugular vein.
--- NOTE | 2021-03-23 16:38 | Progress Note ---
Assessment and Plan - Patient Problems (1) Elevated liver transaminase level Current Visit: Yes Status: Acute (2) Altered mental status Current Visit: Yes Status: Acute Plan to address problem: Multifactorial hypoxemia, uremia with the possibility of acute infectious hepatitis. -Treat underlying etiology of pulmonary embolism with heparin drip -Optimize oxygenation -Aggressive support of anemia with transfusion with hemodialysis. -Patient will also need hemodialysis as well. -Mental status has resolved. Patient is acting rule today. (3) Fever Current Visit: Yes Status: Acute Plan to address problem: Remains afebrile now. Multiple episodes of having catheter removed secondary to fungemia bacteremia. Patient treated empirically with antibiotics. New catheter placed today. Scheduled discharge for a.m. (4) Pulmonary embolus Current Visit: Yes Status: Acute Plan to address problem: Patient still on heparin. Supportive care oxygenation (5) CHF (congestive heart failure) Current Visit: No Status: Acute Qualifiers: Heart failure chronicity: chronic Plan to address problem: Fairly well compensated at this time. (6) ESRD (end stage renal disease) Current Visit: No Status: Acute Plan to address problem: Patient to received Vas-Cath placed today. Schedule be discharged after procedure complete. (7) Full code status Current Visit: No Status: Acute (8) Hepatitis B core antibody positive Current Visit: Yes Status: Acute Plan to address problem: Supportive care Gentle fluid hydration since patient is on hemodialysis. ID consult (9) Ischemic bowel disease Current Visit: Yes Status: Acute Plan to address problem: Rule out ischemic bowel given recent GI surgery. Rule out small bowel obstruction CT scan abdomen. (10) Anemia Current Visit: Yes Status: Acute Plan to address problem: Anemia of chronic disease. No evidence of acute GI blood loss anemia. Will transfuse 1 unit packed red blood cells. Subjective Date of service: 03/23/21 Principal diagnosis: Hypoxia, fever Interval history: 60-year-old male resident of [facility] nursing [facility] with past history of congestive heart failure, hypertension, end-stage renal disease and Crohn's disease with extensive history of multiple abdominal surgeries for Small bowel obstruction/necrotic bowel, controlled anastomotic leak that is t ransitioning to a fistula presents to the ED with a chief complaint of fever hypoxemia acute respiratory failure. Patient received CT scan in the a.m. for work-up of hypoxemia and was found to have right sided pulmonary embolism. Patient was admitted placed on heparin drip. Patient was also complaining of some abdominal pain of which a CT scan of the abdomen and pelvis showed a 6 cm fluid collection between the stomach and the pancreas suggestive of a pancreatic pseudocyst. Daily clinical course: 03/16/21: Hemoglobin 6.0 this morning, continue to transfuse. Monitor H&H carefully while patient on heparin drip. Noted general surgery and IR recommendation. Will consult GI for pancreatic pseudocyst. Continue to follow clinically with supportive care. Blood culture growing yeast we'll also add fluconazole. 03/17/21: Patient receiving hemodialysis, BP appears to be stable, continue empiric antibiotic. Follow ID and GI recommendation. Per general surgery no intervention required for pancreatic pseudocyst. If patient condition return to [facility] may need to transfer to tertiary center for possible drainage. 03/18/21: Continue empiric antibiotics, hemodialysis per nephrology. Continue TPN. Patient H&H remained stable, continue to follow BMP. Transfer out of [facility] to telemetry. 03/19/21: Patient transferred to telemetry today. H&H remained stable. White count slightly elevated, will follow CBC. Repeat blood culture from 03/18/21 having no growth. Continue empiric antibiotics per ID and TPN. Discharge planning per general surgery and ID recommendation. Patient intermittently refusing care; counseled extensively he verbalized understanding and promised to follow hospital protocol and MD recommendations 10/21/20: Removed right-sided PermCath today per vascular as patient blood culture initially was positive for yeast. Continue empiric antibiotics per ID recommendation. Dialysis per nephrology. Continue TPN and follow BMP. Per ID: Due to fungemia, will need blood cultures to be negative at 5 days (03/23/2021) before new tunneled lines can be placed (Ok to place temporary ones if needed). 10/22/20; patient appears clinically stable, continue heparin drip and TPN. Patient last dialysis was on Saturday. Repeat blood culture need to be neg till for placing new PermCath for dialysis. Continue to monitor off dialysis. Final blood culture data and sensitivity is pending. 10/23/20: continue heparin drip and TPN. Patient last dialysis was on Saturday. Repeat blood culture need to be neg till for placing new PermCath for dialysis. Final blood culture data and sensitivity is pending. Planned to place permcath tomorrow by vascular if repeat blood cx remains neg. 03/23/2021. Patient very agitated today. This morning has refused heparin. Has refused all meds at this time. Unable to tell why. Not answering the question when I asked what can I do for you to assist you with your care. Patient is going to have hemodialysis catheter placed today. Patient has been 5 days without any goal for blood cultures. Multiple episodes in the past with bacteremia and fungemia. Objective - Constitutional Vitals: Vital Signs - 12hr 03/23/21 03/23/21 03/23/21 08:04 12:03 16:28 Temperature 98.4 F 98.4 F 98.2 F Pulse Rate 62 65 62 Respiratory 30 H 18 20 Rate Blood Pressure 188/94 Blood Pressure 170/74 170/84 [Right] O2 Sat by Pulse 100 100 95 Oximetry General appearance: Present: no acute distress, well-nourished, other - EENT Eyes: PERRL, EOM intact ENT: hearing intact, clear oral mucosa Ears: bilateral: normal - Neck Neck: supple, normal ROM - Respiratory Respiratory effort: normal Respiratory: bilateral: CTA - Breasts Breasts: normal - Cardiovascular Rhythm: regular Heart Sounds: Present: S1 & S2. Absent: gallop, rub Extremities: pulses intact, No edema, normal color, Full ROM - Gastrointestinal General gastrointestinal: Present: soft, non-tender, non-distended, normal bowel sounds - Genitourinary Male genitourinary: normal - Musculoskeletal Musculoskeletal: strength equal bilaterally, generalized weakness - Neurologic Neurologic: moves all extremities - Psychiatric Psychiatric: agitated, other (Being rude to nursing staff.) - Labs CBC & Chem 7: 03/23/21 05:20 03/23/21 05:20 Labs: Abnormal lab results 03/22/21 03/23/21 03/23/21 Range/Units 23:44 05:20 05:20 RBC 2.24 L (3.65-5.03) M/mm3 Hgb 6.8 L (11.8-15.2) gm/dl Hct 21.3 L (35.5-45.6) % MCV 95 H (84-94) fl RDW 18.0 H (13.2-15.2) % Porter % (Auto) 7.4 H (0.0-7.3) % Lymph # (Auto) 1.0 L (1.2-5.4) K/mm3 Seg Neutrophils % 72.3 H (40.0-70.0) % Heparin Anti-Xa Level < 0.10 L (0.3-0.7) U.I./ml Carbon Dioxide 20 L (22-30) mmol/L BUN 46 H (9-20) mg/dL Creatinine 10.5 H (0.8-1.3) mg/dL POC Glucose (70-105) mg/dL Phosphorus 5.80 H D (2.5-4.5) mg/dL Crossmatch 03/23/21 03/23/21 03/23/21 Range/Units 11:29 14:14 14:17 RBC (3.65-5.03) M/mm3 Hgb (11.8-15.2) gm/dl Hct (35.5-45.6) % MCV (84-94) fl RDW (13.2-15.2) % Porter % (Auto) (0.0-7.3) % Lymph # (Auto) (1.2-5.4) K/mm3 Seg Neutrophils % (40.0-70.0) % Heparin Anti-Xa Level < 0.10 L (0.3-0.7) U.I./ml Carbon Dioxide (22-30) mmol/L BUN (9-20) mg/dL Creatinine (0.8-1.3) mg/dL POC Glucose 120 H (70-105) mg/dL Phosphorus (2.5-4.5) mg/dL Crossmatch See Detail
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
[2021-03-23] MEDS ORDERED: TOTAL PARENTERAL NUTRITION 1,800 ML IV SCH (20:00)
[2021-03-23] MEDS: MICAFUNGIN 100 MG in SODIUM CHLORIDE 0.9% 100 ML IV SCH ×2 (20:50→22:40)
[2021-03-23] MEDS: hydrALAZINE 20 MG/1 ML INJ IV PRN (21:38)
[2021-03-24] MEDS: INSULIN REGULAR, HUMAN 100 UNITS/1 ML SUB-Q SCH ×4 (02:00→22:37)
[2021-03-24] MEDS: OCTREOTIDE 50 MCG in SODIUM CHLORIDE 0.9% 50 ML IV SCH ×2 (06:13→13:17)
[2021-03-24] MEDS: TRIAMCINOLONE 0.1% CREAM 15 GM TP SCH (09:26)
--- NOTE | 2021-03-24 10:22 | Progress Note ---
Assessment and Plan Assessment * End-stage renal disease on hemodialysis * Sepsis * Candidemia --Permcath removal - March 20, 2021 * Hypertension * Anemia secondary to ESRD * Secondary hyperparathyroidism Recommendations * Hemodialysis today; continue MWF * Vascath placed March 23. Will need permcath prior to discharge - IR following. ID rec negative blood cx x 5 days * Surgery recommendations noted * Transfuse pRBC prn - Hb 6.8 * ID following - Micafungin IV per ID * Epogen TIW prn * Continue antiHTN medications Subjective Date of service: 03/24/21 Principal diagnosis: Hypoxia, fever Interval history: Patient seen on dialysis today. Objective - Vital Signs Vital signs: Vital Signs - 12hr 03/23/21 03/24/21 03/24/21 23:03 05:02 08:05 Temperature 98.3 F 97.9 F 98.0 F Pulse Rate 71 68 66 Respiratory 18 18 20 Rate Blood Pressure 159/81 175/91 183/97 O2 Sat by Pulse 95 98 97 Oximetry O2 Sat by Pulse Oximetry [ Anterior Bilateral Throughout] 03/24/21 03/24/21 03/24/21 08:25 08:38 08:51 Temperature 98.4 F Pulse Rate 67 Respiratory 20 Rate Blood Pressure 194/98 O2 Sat by Pulse 98 0 L Oximetry O2 Sat by Pulse 97 Oximetry [ Anterior Bilateral Throughout] - General Appearance General appearance: well-developed, well-nourished EENT: ATNC Respiratory: Present: Clear to Ascultation Cardiology: regular, S1S2 Gastrointestinal: no tenderness, other (HARIS drain in place) Integumentary: no rash, warm and dry Psychiatric: cooperative - Lab 03/23/21 05:20 03/23/21 05:20 Most recent lab results ABG pH 7.367 (7.320-7.450) 03/15/21 12:54 ABG O2 Saturation 89.9 (0-100) 03/15/21 12:54 Calcium 8.9 mg/dL (8.4-10.2) 03/23/21 05:20 Phosphorus 5.80 mg/dL (2.5-4.5) H D 03/23/21 05:20 Magnesium 2.00 mg/dL (1.7-2.3) 03/22/21 04:18 Medications & Allergies - Medications Allergies/Adverse Reactions: Allergies No Known Allergies Allergy (Verified 06/09/20 15:27) Home Medications: Home Medications Medication Instructions Recorded Confirmed Last Taken Type Albuterol Mdi (or & Nicu Only) 2 puff IH QID PRN #1 inhalation 04/01/17 03/15/21 10/31/20 09:00 Rx [ProAir HFA Inhaler] Calcium Acetate 667 mg PO DAILY 04/20/20 03/15/21 10/31/20 09:00 History Centrum Men's Tablet 1 tab PO DAILY 04/20/20 03/15/21 10/31/20 09:00 History Cinacalcet 30 mg PO DAILY 04/20/20 03/15/21 10/31/20 09:00 History Dialyvite with Zinc Tablet 1 tab PO DAILY 04/20/20 03/15/21 10/31/20 09:00 History Magnesium 250 mg PO BID 04/20/20 03/15/21 10/31/20 17:00 History Triamcinolone 0.1% 1 1000units TRANSDERMA DAILY 04/20/20 03/15/21 10/31/20 09:00 History Vit B12/Folic Acid/B6/Aa No.15 1,000 mg PO DAILY 04/20/20 03/15/21 10/31/20 09:00 History amLODIPine 10 mg PO DAILY 06/09/20 03/15/21 10/31/20 09:00 History AtorvaSTATin 40 mg PO HS 11/01/20 03/15/21 10/31/20 21:00 History Benadryl 25 mg PO HS 11/01/20 03/15/21 10/31/20 21:00 History Diclofenac 1 applic TRANSDERMA QID 11/01/20 03/15/21 10/31/20 19:00 History Vitamin D3 2,000 units PO QDAY 11/01/20 03/15/21 10/31/20 09:00 History carvediloL 12.5 mg PO DAILY 11/01/20 03/15/21 10/31/20 09:00 History hydrALAZINE 100 mg PO TID 11/01/20 03/15/21 10/31/20 19:00 History Fluticasone Propionate 1 spray INTRANASAL DAILY #1 02/21/21 03/15/21 Unknown Rx HYDROcodone/ACETAMINOPHEN 15 ml PO Q6H PRN #150 ml 02/21/21 03/15/21 Unknown Rx [Hydrocodon-Acetamin 7.5-325/15] Insulin Glargine [Lantus VIAL] 5 units SUB-Q QHS #1 units 02/21/21 03/15/21 Unknown Rx Lispro Insulin [HumaLOG] See Protocol SUB-Q Q6HR #1 vial 02/21/21 03/15/21 Unknown Rx Scopolamine [Transderm-Scop] 1 each TD Q3D #10 patch 02/21/21 03/15/21 Unknown Rx cloNIDine-TTS PATCH [Catapres-Tts 0.2 mg TD We #30 patch 02/21/21 03/15/21 Unknown Rx 0.2mg Patch] Active Medications: Generic Name Dose Route Start Last Admin Trade Name Freq PRN Reason Stop Dose Admin Acetaminophen 650 mg 03/15/21 19:31 03/17/21 20:29 Acetaminophen 325 Mg Tab PO 650 mg Q4H PRN Administration Pain MILD(1-3)/Fever >100.5/HULL Hydrocodone Bitart/Acetaminophen 7.5 mg 03/15/21 19:39 Hydrocodone/Acetaminophen 7.8-662sd-45po Oral Liqd PO Q6H PRN Pain , Severe (7-10) Albuterol 2.5 mg 03/15/21 19:31 Albuterol 2.5 Mg/3 Ml Nebu IH Q4HRT PRN Shortness Of Breath Calcium Acetate 667 mg 03/16/21 10:00 03/23/21 11:06 Calcium Acetate 667 Mg Cap PO Not Given DAILY [facility] Cholecalciferol 2,000 unit 03/16/21 10:00 03/23/21 11:07 Cholecalciferol (Vit D3) 1000 Unit (25 Mcg) Tab PO Not Given QDAY THOMAS Clonidine HCl 0.3 mg 03/28/21 10:00 Clonidine Tts 0.3 Mg/24 Hr Patch TD Tu THOMAS Dextrose 50 ml 03/15/21 19:46 Dextrose 50% In Water (25gm) 50 Ml Syringe IV Q30MIN PRN Hypoglycemia Protocol Famotidine 10 mg 03/15/21 22:00 03/23/21 21:40 Famotidine 20 Mg/2 Ml Inj IV 10 mg BID THOMAS Administration Heparin Sodium (Porcine) 3,200 unit 03/15/21 17:16 03/17/21 14:35 Heparin 10,000 Units/10 Ml Vial 40 unit/kg (3200 unit) 3,200 unit IV Administration Q6H PRN Anti-Xa Assay<0.1 units/ml Hydralazine HCl 10 mg 03/22/21 10:05 03/23/21 21:38 Hydralazine 20 Mg/1 Ml Inj IV 10 mg Q30MIN PRN Administration Hypertension Hydromorphone HCl 0.5 mg 03/15/21 19:31 Hydromorphone 1 Mg/1 Ml Inj IV Q3H PRN Pain , Severe (7-10) Sodium Chloride 100 mls @ 999 mls/hr 03/15/21 16:00 Nacl 0.9% IV RYLAND PRN Hypotension Heparin Sodium/Sodium Chloride 25,000 unit in 500 mls @ 23 mls/hr 03/16/21 07:00 03/22/21 16:12 Heparin/ 0.45% Nacl-25,000 Unit/500 Ml IV 2,050 units/hr TITR THOMAS 41 mls/hr Administration Protocol 1,150 UNITS/HR Micafungin Sodium 100 mg/ 100 mls @ 100 mls/hr 03/16/21 19:00 03/23/21 22:40 Sodium Chloride IV 100 mls/hr Q24H THOMAS Administration Protocol Octreotide Acetate 50 mcg/ 51 mls @ 100 mls/hr 03/17/21 14:00 03/24/21 06:13 Sodium Chloride IV 100 mls/hr Q8HR THOMAS Administration Dextrose/Sodium Chloride 1,000 mls @ 42 mls/hr 03/20/21 16:00 D5ns IV DIRECT THOMAS Amino Acids/Electrolytes/Dextrose 1,800 mls @ 75 mls/hr 03/23/21 20:00 03/23/21 20:50 Tpn Adult IV 03/24/21 19:59 Not Given DAILY@1999 [facility] Protocol Insulin Human Regular 0 units 03/15/21 20:00 03/24/21 08:38 Insulin Regular, Human 100 Units/1 Ml SUB-Q Not Given Q6H [facility] Protocol Morphine Sulfate 2 mg 03/15/21 19:31 03/16/21 13:27 Morphine 2 Mg/1 Ml Inj IV 2 mg Q4H PRN Administration Pain, Moderate (4-6) Ondansetron HCl 4 mg 03/15/21 19:31 Ondansetron 4 Mg/2 Ml Inj IV Q8H PRN Nausea And Vomiting Scopolamine 1 each 03/16/21 10:00 03/22/21 10:01 Scopolamine Transdermal Patch 72 Hr TD 1 each Q3D THOMAS Administration Sodium Chloride 10 ml 03/15/21 22:00 03/23/21 21:41 Sodium Chloride 0.9% 10 Ml Flush Syringe IV 10 ml BID THOMAS Administration Sodium Chloride 10 ml 03/15/21 20:31 Sodium Chloride 0.9% 10 Ml Flush Syringe IV PRN PRN LINE FLUSH Triamcinolone Acetonide 1 applic 03/22/21 12:00 03/24/21 09:26 Triamcinolone 0.1% Cream 15 Gm TP Not Given DAILY THOMAS
--- NOTE | 2021-03-24 12:33 | Progress Note ---
Assessment and Plan Cultures: Blood culture 03/15/2021 growing Gwendolyn glabrata, Coag negative staph in multiple bottles 03/16/2021 urine culture: No growth 03/18/2021 blood culture: No growth Assessment: 61-year-old male with history of ESRD initially on PD, CHF, , Crohn's disease, CHF, gastroesophageal reflux disease, status post prolonged hospital complicated stay from 12/22/2020-02/21/2021 due to complicated small bowel obstruction with necrotic small bowel s/p small bowel resection and primary anastomosis, requiring right hemicolectomy on 01/03/2021, complicated with a Streptococcus bovis and Prevotella bacteremia on 12/22/2020, complicated with perforated anastomosis, s/p multiple surgeries readmitted on 03/15/2021 secondary to fever, hypoxia and altered mental status/somnolence: #Severe sepsis: likely secondary to candidemia. #Candidemia: present in several bottles of blood cultures. Likely due to intra-abdominal collection versus central line infection, patient had dialysis catheter as well as tunneled line, is on TPN. TTE without obvious vegetations on the valves. Lines removed 03/20/2021. #Coag negative staph bacteremia: Possibly due to central line infection. #Pancreatic pseudocyst vs intra-abdominal collection: CT with 6.6 x 3.3 x 4.8 cm pseudocyst could be source of candidemia. CRP 14.9. Lipase normal. #Complicated small bowel obstruction: with necrotic small bowel s/p small bowel resection and primary anastomosis, requiring right hemicolectomy on 01/03/2021, and multiple other surgeries and abx. #Acute pulmonary embolism: On anticoagulation. #Elevated LFTs: Likely secondary to sepsis/pancreatic pseudocyst more than acute hepatitis B infection. Patient noted to have hepatitis B core IgM positive ? False positive versus acute hepatitis B less likely. #ESRD on hemodialysis. Renally adjust antibiotics. #Acute encephalopathy: Likely secondary to sepsis. Improving. Recommendations: -Continue IV micafungin till Gwendolyn glabrata susceptibilities are available. Total treatment of at least 14 days from negative cultures. May be able to do high dose fluconazole if susceptible. End date: 03/30/2021 -continue renally dosed IV vancomycin added due to coag negative staph bacteremia x 7 days, ending 03/27/2021. -Follow-up hepatitis B DNA PCR Yesika Denny MD, FACP [facility] ([facility]) O: [phone] F: [phone] Subjective Date of service: 03/24/21 Principal diagnosis: Hypoxia, fever Interval history: Patient is afebrile. Got dialysis catheter and a pigtail IV placed yesterday. Got HD today. Objective - Exam Narrative Exam: Physical Exam: Constitutional: Alert, no distress Head, Ears, Nose: Normocephalic, atraumatic. External ears, nose normal Eyes: Conjunctivae/corneas clear. No icterus. No ptosis. Neck: Supple, no meningeal signs Cardiovascular: S1, S2 normal. Respiratory: Good air entry, clear to auscultation bilaterally GI: Soft, non-tender; bowel sounds normal. No peritoneal signs. Drain + Musculoskeletal: No pedal edema, no cyanosis. Right neck region dressings + . Left neck with new lines Skin: No rash or abscess Hem/Lymphatic: No palpable cervical or supraclavicular nodes. No lymphangitis Psych: no agitation Neurological: Awake, alert, answering questions - Constitutional Vitals: Vital Signs Temp Pulse Resp BP Pulse Ox 98.4 F 62 20 203/62 0 L 03/24/21 08:25 03/24/21 11:15 03/24/21 08:25 03/24/21 11:15 03/24/21 08:51 Temperature -Last 24 Hours Temperature 98.4 F Temperature 98.0 F Temperature 97.9 F Temperature 98.3 F Temperature 97.5 F Temperature 98.2 F - Labs CBC & Chem 7: 03/23/21 05:20 03/23/21 05:20 Labs: Abnormal lab results 03/23/21 03/23/21 Range/Units 14:14 14:17 Heparin Anti-Xa Level < 0.10 L (0.3-0.7) U.I./ml Crossmatch See Detail
[2021-03-24] MEDS: FAMOTIDINE 20 MG/2 ML INJ IV SCH ×2 (13:14→22:37)
[2021-03-24] MEDS: CALCIUM ACETATE 667 MG CAP PO SCH (13:14)
[2021-03-24] MEDS: CHOLECALCIFEROL (VIT D3) 1000 UNIT (25 mcg) TAB PO SCH (13:14)
[2021-03-24] MEDS: hydrALAZINE 20 MG/1 ML INJ IV PRN ×2 (13:27→22:37)
--- NOTE | 2021-03-24 14:08 | Progress Note ---
Assessment and Plan 60-year-old male, with extensive history of multiple abdominal surgeries, controlled anastomotic leak that is transitioning to a fistula, and new acute pulmonary embolism. Stable and afebrile. Sepsis work up - blood cultures positive for fungus, IV access removed and replaced. Pulmonary embolism-supportive care and treat with anticoagulation Abdominal fluid collection consistent with pancreatic pseudocyst-no acute intervention planned at this time. Spoke to interventional radiology who said that the collection is not assessable externally. Will consult GI, for evaluation and follow-up and determine if he is amenable for endoscopic transgastric drainage of collection. I do not believe this service is offered at this facility and patient may need to get this done as an outpatient or transferred. With that said, assuming this is a pseudocyst, it may take a few weeks to get a mature wall of the cyst and allow for further interventional management. Anastomotic leak-we will continue TPN, will allow clear liquids and monitor output. Would like to make sure that the output returns to minimal as it was prior to discharge at his last admission. Needs new PICC line access placed before discharge to allow for continued TPN. Renal failure-dialysis per renal No acute general surgical intervention indicated at this time we will continue to follow. Subjective Date of service: 03/24/21 Narrative: No acute events overnight. Patient is in a much better mood and slightly more cooperative. Patient had dialysis earlier today. Patient expressed frustration of not being able to reach his daughter on the phone which I facilitated he was speaking to his daughter before I left. I spoke with the daughter after she had spoken to case management and the current plan is to discharge him to [place] with hopefully quick discharge to home. I spoke with the ex- who says that she may be able to have him stay with her at her home while he is continuing to recover. Patient denied any acute complaints. Objective Vital Signs - 12hr 03/24/21 03/24/21 03/24/21 05:02 08:05 08:25 Temperature 97.9 F 98.0 F 98.4 F Pulse Rate 68 66 67 Respiratory 18 20 20 Rate Blood Pressure 175/91 183/97 194/98 O2 Sat by Pulse 98 97 Oximetry O2 Sat by Pulse 97 Oximetry [ Anterior Bilateral Throughout] 03/24/21 03/24/21 03/24/21 08:30 08:38 08:45 Temperature Pulse Rate 62 63 Respiratory Rate Blood Pressure 205/105 204/105 O2 Sat by Pulse 98 Oximetry O2 Sat by Pulse Oximetry [ Anterior Bilateral Throughout] 03/24/21 03/24/21 03/24/21 08:51 09:00 09:15 Temperature Pulse Rate 63 63 Respiratory Rate Blood Pressure 182/102 189/103 O2 Sat by Pulse 0 L Oximetry O2 Sat by Pulse Oximetry [ Anterior Bilateral Throughout] 03/24/21 03/24/21 03/24/21 09:30 09:45 10:00 Temperature Pulse Rate 63 61 63 Respiratory Rate Blood Pressure 191/100 188/104 201/103 O2 Sat by Pulse Oximetry O2 Sat by Pulse Oximetry [ Anterior Bilateral Throughout] 03/24/21 03/24/21 03/24/21 10:15 10:30 10:45 Temperature Pulse Rate 72 65 62 Respiratory Rate Blood Pressure 191/104 205/106 210/102 O2 Sat by Pulse Oximetry O2 Sat by Pulse Oximetry [ Anterior Bilateral Throughout] 03/24/21 03/24/21 03/24/21 11:00 11:15 12:25 Temperature 98.9 F Pulse Rate 66 62 66 Respiratory 20 Rate Blood Pressure 190/101 203/62 197/108 O2 Sat by Pulse Oximetry O2 Sat by Pulse 97 Oximetry [ Anterior Bilateral Throughout] - General physical appearance well developed, no distress, no pain - Respiratory normal expansion, normal respiratory effort - Abdomen soft, not tender, other (HARIS drain with 20 cc recorded over the last 24 hours light brown in color. G-tube flushed without difficulty no drainage.) - Labs 03/23/21 05:20 03/23/21 05:20
--- NOTE | 2021-03-24 14:40 | Progress Note ---
Assessment and Plan - Patient Problems (1) Elevated liver transaminase level Current Visit: Yes Status: Acute Plan to address problem: Patient markedly elevated transaminase levels since last month. Differential diagnosis includes acute infection with hepatitis B. Patient has hepatitis B core antigen positive IgM. Will place ID consult. We will also need to rule out ischemic bowel given recent extensive surgery for small bowel obstruction and lysis of adhesions. Surgical consult as well. GI consult for pancreatic pseudocyst -Provide supportive care with pain control -Above consultations (2) Altered mental status Current Visit: Yes Status: Acute Plan to address problem: Multifactorial hypoxemia, uremia with the possibility of acute infectious hepatitis. -Treat underlying etiology of pulmonary embolism with heparin drip -Optimize oxygenation -Aggressive support of anemia with transfusion with hemodialysis. -Patient will also need hemodialysis as well. -Mental status has resolved. Patient is acting rule today. (3) Fever Current Visit: Yes Status: Acute Plan to address problem: Remains afebrile now. (4) Pulmonary embolus Current Visit: Yes Status: Acute Plan to address problem: Patient not receiving IV heparin. Refuses IV heparin. Will consider long- acting upon discharge. Family states wants to take patient home. Requires midline. (5) CHF (congestive heart failure) Current Visit: No Status: Acute Qualifiers: Heart failure chronicity: chronic Plan to address problem: Fairly well compensated at this time. (6) ESRD (end stage renal disease) Current Visit: No Status: Acute Plan to address problem: Patient to received Vas-Cath placed today. Schedule be discharged after procedure complete. (7) Full code status Current Visit: No Status: Acute (8) Hepatitis B core antibody positive Current Visit: Yes Status: Acute Plan to address problem: Supportive care Gentle fluid hydration since patient is on hemodialysis. ID consult (9) Ischemic bowel disease Current Visit: Yes Status: Acute Plan to address problem: Rule out ischemic bowel given recent GI surgery. Rule out small bowel obstruction CT scan abdomen. (10) Anemia Current Visit: Yes Status: Acute Plan to address problem: Transfuse for H&H less than 7. Subjective Date of service: 03/24/21 Principal diagnosis: Hypoxia, fever Interval history: 60-year-old male resident of [facility] with past history of congestive heart failure, hypertension, end-stage renal disease and Crohn's disease with extensive history of multiple abdominal surgeries for Small bowel obstruction/necrotic bowel, controlled anastomotic leak that is transitioning to a fistula presents to the ED with a chief complaint of fever hypoxemia acute respiratory failure. Patient received CT scan in the a.m. for work-up of hypoxemia and was found to have right sided pulmonary embolism. Patient was admitted placed on heparin drip. Patient was also complaining of some abdominal pain of which a CT scan of the abdomen and pelvis showed a 6 cm fluid collection between the stomach and the pancreas suggestive of a pancreatic pseudocyst. Daily clinical course: 03/16/21: Hemoglobin 6.0 this morning, continue to transfuse. Monitor H&H carefully while patient on heparin drip. Noted general surgery and IR recommendation. Will consult GI for pancreatic pseudocyst. Continue to follow clinically with supportive care. Blood culture growing yeast we'll also add fluconazole. 03/17/21: Patient receiving hemodialysis, BP appears to be stable, continue empiric antibiotic. Follow ID and GI recommendation. Per general surgery no intervention required for pancreatic pseudocyst. If patient condition return to [facility] may need to transfer to tertiary center for possible drainage. 03/18/21: Continue empiric antibiotics, hemodialysis per nephrology. Continue TPN. Patient H&H remained stable, continue to follow BMP. Transfer out of [facility] to telemetry. 03/19/21: Patient transferred to telemetry today. H&H remained stable. White count slightly elevated, will follow CBC. Repeat blood culture from 03/18/21 having no growth. Continue empiric antibiotics per ID and TPN. Discharge planning per general surgery and ID recommendation. Patient intermittently refusing care; counseled extensively he verbalized understanding and promised to follow hospital protocol and MD recommendations 10/21/20: Removed right-sided PermCath today per vascular as patient blood culture initially was positive for yeast. Continue empiric antibiotics per ID recommendation. Dialysis per nephrology. Continue TPN and follow BMP. Per ID: Due to fungemia, will need blood cultures to be negative at 5 days (03/23/2021) before new tunneled lines can be placed (Ok to place temporary ones if needed). 10/22/20; patient appears clinically stable, continue heparin drip and TPN. Patient last dialysis was on Saturday. Repeat blood culture need to be neg till for placing new PermCath for dialysis. Continue to monitor off dialysis. Final blood culture data and sensitivity is pending. 10/23/20: continue heparin drip and TPN. Patient last dialysis was on Saturday. Repeat blood culture need to be neg till for placing new PermCath for dialysis. Final blood culture data and sensitivity is pending. Planned to place permcath tomorrow by vascular if repeat blood cx remains neg. 03/23/2021. Patient very agitated today. This morning has refused heparin. Has refused all meds at this time. Unable to tell why. Not answering the question when I asked what can I do for you to assist you with your care. Patient is going to have hemodialysis catheter placed today. Patient has been 5 days without any goal for blood cultures. Multiple episodes in the past with bacteremia and fungemia. 03/24/2021 patient remains agitated today. Was dragging tube along the floor. Refused heparin again. Continue refuse medications not answering me at this time. Not as belligerent as yesterday but still noncompliant with treatment at this time. Discussion with case management/daughter. Agreed to go home. Patient will need PICC line for TPN. Will order PICC line anticipated discharge in a.m. Objective - Constitutional Vitals: Vital Signs - 12hr 03/24/21 03/24/21 03/24/21 05:02 08:05 08:25 Temperature 97.9 F 98.0 F 98.4 F Pulse Rate 68 66 67 Respiratory 18 20 20 Rate Blood Pressure 175/91 183/97 194/98 O2 Sat by Pulse 98 97 Oximetry O2 Sat by Pulse 97 Oximetry [ Anterior Bilateral Throughout] 03/24/21 03/24/21 03/24/21 08:30 08:38 08:45 Temperature Pulse Rate 62 63 Respiratory Rate Blood Pressure 205/105 204/105 O2 Sat by Pulse 98 Oximetry O2 Sat by Pulse Oximetry [ Anterior Bilateral Throughout] 03/24/21 03/24/21 03/24/21 08:51 09:00 09:15 Temperature Pulse Rate 63 63 Respiratory Rate Blood Pressure 182/102 189/103 O2 Sat by Pulse 0 L Oximetry O2 Sat by Pulse Oximetry [ Anterior Bilateral Throughout] 03/24/21 03/24/21 03/24/21 09:30 09:45 10:00 Temperature Pulse Rate 63 61 63 Respiratory Rate Blood Pressure 191/100 188/104 201/103 O2 Sat by Pulse Oximetry O2 Sat by Pulse Oximetry [ Anterior Bilateral Throughout] 03/24/21 03/24/21 03/24/21 10:15 10:30 10:45 Temperature Pulse Rate 72 65 62 Respiratory Rate Blood Pressure 191/104 205/106 210/102 O2 Sat by Pulse Oximetry O2 Sat by Pulse Oximetry [ Anterior Bilateral Throughout] 03/24/21 03/24/21 03/24/21 11:00 11:15 12:25 Temperature 98.9 F Pulse Rate 66 62 66 Respiratory 20 Rate Blood Pressure 190/101 203/62 197/108 O2 Sat by Pulse Oximetry O2 Sat by Pulse 97 Oximetry [ Anterior Bilateral Throughout] General appearance: Present: no acute distress, well-nourished - EENT Eyes: PERRL, EOM intact ENT: hearing intact, clear oral mucosa - Respiratory Respiratory effort: normal Respiratory: bilateral: CTA - Gastrointestinal General gastrointestinal: Present: soft, non-tender, non-distended, normal bowel sounds, other (PEG tube) - Neurologic Neurologic: moves all extremities - Labs CBC & Chem 7: 03/23/21 05:20 03/23/21 05:20 Labs: Abnormal lab results 03/23/21 03/23/21 Range/Units 14:14 14:17 Heparin Anti-Xa Level < 0.10 L (0.3-0.7) U.I./ml Crossmatch See Detail
[2021-03-24] MEDS: MICAFUNGIN 100 MG in SODIUM CHLORIDE 0.9% 100 ML IV SCH (18:11)
[2021-03-25] MEDS: INSULIN REGULAR, HUMAN 100 UNITS/1 ML SUB-Q SCH ×4 (02:14→21:39)
[2021-03-25] MEDS: hydrALAZINE 20 MG/1 ML INJ IV PRN ×2 (05:51→23:19)
--- NOTE | 2021-03-25 08:39 | Progress Note ---
Assessment and Plan - Patient Problems (1) Elevated liver transaminase level Current Visit: Yes Status: Resolved Plan to address problem: Resolved. (2) Altered mental status Current Visit: Yes Status: Acute Plan to address problem: Encephalopathy has resolved. Patient is alert oriented x3. Angry and agitated today secondary to prolonged hospital stay and wants to go home. (3) Fever Current Visit: Yes Status: Acute Plan to address problem: Remains afebrile. (4) Pulmonary embolus Current Visit: Yes Status: Acute Plan to address problem: Patient pulmonary embolus. He has been refusing heparin. Now today he states that he is okay to use heparin. Plan would be upon discharge start patient on Eliquis for treatment for PE. He can swallow the pill. (5) CHF (congestive heart failure) Current Visit: No Status: Acute Qualifiers: Heart failure chronicity: chronic Plan to address problem: Fairly well compensated at this time. (6) ESRD (end stage renal disease) Current Visit: No Status: Acute Plan to address problem: Patient to received Vas-Cath placed Plan is to place a tunneled hemodialysis catheter and tunnel triple-lumen cathet er so patient can receive dialysis and TPN on Saturday (7) Full code status Current Visit: No Status: Acute (8) Hepatitis B core antibody positive Current Visit: Yes Status: Acute Plan to address problem: Supportive care Gentle fluid hydration since patient is on hemodialysis. ID consult (9) Ischemic bowel disease Current Visit: Yes Status: Acute Plan to address problem: Patient with Crohn's disease. Has some abdominal pain when patient tries to eat and takes TPN that is why she is refusing TPN. (10) Anemia Current Visit: Yes Status: Acute Plan to address problem: Transfuse for H&H less than 7. Subjective Date of service: 03/25/21 Principal diagnosis: Hypoxia, fever Interval history: 60-year-old male resident of [facility] with past history of congestive heart failure, hypertension, end-stage renal disease and Crohn's disease with extensive history of multiple abdominal surgeries for Small bowel obstruction/necrotic bowel, controlled anastomotic leak that is transitioning to a fistula presents to the ED with a chief complaint of fever hypoxemia acute respiratory failure. Patient received CT scan in the a.m. for work-up of hypoxemia and was found to have right sided pulmonary embolism. Patient was admitted placed on heparin drip. Patient was also complaining of some abdominal pain of which a CT scan of the abdomen and pelvis showed a 6 cm fluid collection between the stomach and the pancreas suggestive of a pancreatic pseudocyst. Daily clinical course: 03/16/21: Hemoglobin 6.0 this morning, continue to transfuse. Monitor H&H carefully while patient on heparin drip. Noted general surgery and IR recommendation. Will consult GI for pancreatic pseudocyst. Continue to follow clinically with supportive care. Blood culture growing yeast we'll also add fluconazole. 03/17/21: Patient receiving hemodialysis, BP appears to be stable, continue empiric antibiotic. Follow ID and GI recommendation. Per general surgery no intervention required for pancreatic pseudocyst. If patient condition return to [facility] may need to transfer to tertiary center for possible drainage. 03/18/21: Continue empiric antibiotics, hemodialysis per nephrology. Continue TPN. Patient H&H remained stable, continue to follow BMP. Transfer out of [facility] to telemetry. 03/19/21: Patient transferred to telemetry today. H&H remained stable. White count slightly elevated, will follow CBC. Repeat blood culture from 03/18/21 having no growth. Continue empiric antibiotics per ID and TPN. Discharge planning per general surgery and ID recommendation. Patient intermittently refusing care; counseled extensively he verbalized understanding and promised to follow hospital protocol and MD recommendations 10/21/20: Removed right-sided PermCath today per vascular as patient blood culture initially was positive for yeast. Continue empiric antibiotics per ID recommendation. Dialysis per nephrology. Continue TPN and follow BMP. Per ID: Due to fungemia, will need blood cultures to be negative at 5 days (03/23/2021) before new tunneled lines can be placed (Ok to place temporary ones if needed). 10/22/20; patient appears clinically stable, continue heparin drip and TPN. Patient last dialysis was on Saturday. Repeat blood culture need to be neg till for placing new PermCath for dialysis. Continue to monitor off dialysis. Final blood culture data and sensitivity is pending. 10/23/20: continue heparin drip and TPN. Patient last dialysis was on Saturday. Repeat blood culture need to be neg till for placing new PermCath for dialysis. Final blood culture data and sensitivity is pending. Planned to place permcath tomorrow by vascular if repeat blood cx remains neg. 03/23/2021. Patient very agitated today. This morning has refused heparin. Has refused all meds at this time. Unable to tell why. Not answering the question when I asked what can I do for you to assist you with your care. Patient is going to have hemodialysis catheter placed today. Patient has been 5 days without any goal for blood cultures. Multiple episodes in the past with bacteremia and fungemia. 03/24/2021 patient remains agitated today. Was dragging tube along the floor. Refused heparin again. Continue refuse medications not answering me at this time. Not as belligerent as yesterday but still noncompliant with treatment at this time. Discussion with case management/daughter. Agreed to go home. Patient will need PICC line for TPN. Will order PICC line anticipated discharge in a.m. Objective - Constitutional Vitals: Vital Signs - 12hr 03/24/21 03/24/21 03/24/21 22:00 22:02 23:58 Temperature 99.8 F H 98.0 F Pulse Rate 69 75 Respiratory 18 18 Rate Blood Pressure 186/81 170/78 O2 Sat by Pulse 97 97 96 Oximetry 03/25/21 03/25/21 05:51 06:38 Temperature Pulse Rate 69 Respiratory Rate Blood Pressure 187/80 O2 Sat by Pulse 97 Oximetry General appearance: Present: no acute distress, other (Agitated) - EENT Eyes: PERRL, EOM intact - Respiratory Respiratory effort: normal - Cardiovascular Rhythm: regular Heart Sounds: Present: S1 & S2. Absent: gallop, rub Extremities: pulses intact, No edema, normal color, Full ROM - Gastrointestinal General gastrointestinal: Present: soft, tender, non-distended, hypoactive bowel sounds - Musculoskeletal Musculoskeletal: 1, strength equal bilaterally - Neurologic Neurologic: moves all extremities - Psychiatric Psychiatric: memory intact, appropriate mood/affect, intact judgment & insight - Labs CBC & Chem 7: 03/23/21 05:20 03/23/21 05:20
[2021-03-25] MEDS ORDERED: VANCOMYCIN 1,500 MG in SODIUM CHLORIDE 0.9% 500 ML 500 ML IV ONE (10:00)
[2021-03-25] MEDS ORDERED: VANCOMYCIN/NS 1 GM/250 ML 1 GM/250 ML BAG IV ONE (10:00)
--- NOTE | 2021-03-25 10:00 | Progress Note ---
Assessment and Plan Assessment * End-stage renal disease on hemodialysis * Sepsis * Candidemia --Permcath removal - March 20, 2021 * Hypertension * Anemia secondary to ESRD * Secondary hyperparathyroidism Recommendations * No acute indication for HD today * Continue HD MWF - UF as tolerated * Anticipate Permcath reinsertion on Saturday * Surgery recommendations noted * Transfuse pRBC prn * ID following - Micafungin IV per ID w/ possible transition to high dose flucon azole pending sensitivites * Epogen TIW prn * Continue antiHTN medications Subjective Date of service: 03/25/21 Principal diagnosis: Hypoxia, fever Interval history: Patient has no complaints today Objective - Vital Signs Vital signs: Vital Signs - 12hr 03/24/21 03/24/21 03/24/21 22:00 22:02 23:58 Temperature 99.8 F H 98.0 F Pulse Rate 69 75 Respiratory 18 18 Rate Blood Pressure 186/81 170/78 O2 Sat by Pulse 97 97 96 Oximetry 03/25/21 03/25/21 03/25/21 04:17 05:51 06:38 Temperature 98.0 F Pulse Rate 69 69 Respiratory 18 Rate Blood Pressure 187/80 187/80 O2 Sat by Pulse 96 97 Oximetry 03/25/21 03/25/21 07:42 09:22 Temperature 99.0 F Pulse Rate 82 Respiratory 18 Rate Blood Pressure 168/78 O2 Sat by Pulse 92 96 Oximetry - General Appearance General appearance: well-developed, well-nourished EENT: ATNC Respiratory: Present: Clear to Ascultation Cardiology: regular, S1S2 Gastrointestinal: normal, no tenderness, distended Integumentary: no rash, warm and dry Psychiatric: cooperative - Lab 03/25/21 11:45 03/23/21 05:20 Most recent lab results ABG pH 7.367 (7.320-7.450) 03/15/21 12:54 ABG O2 Saturation 89.9 (0-100) 03/15/21 12:54 Calcium 8.9 mg/dL (8.4-10.2) 03/23/21 05:20 Phosphorus 5.80 mg/dL (2.5-4.5) H D 03/23/21 05:20 Magnesium 2.00 mg/dL (1.7-2.3) 03/22/21 04:18 Medications & Allergies - Medications Allergies/Adverse Reactions: Allergies No Known Allergies Allergy (Verified 06/09/20 15:27) Home Medications: Home Medications Medication Instructions Recorded Confirmed Last Taken Type Albuterol Mdi (or & Nicu Only) 2 puff IH QID PRN #1 inhalation 04/01/17 03/15/21 10/31/20 09:00 Rx [ProAir HFA Inhaler] Calcium Acetate 667 mg PO DAILY 04/20/20 03/15/21 10/31/20 09:00 History Centrum Men's Tablet 1 tab PO DAILY 04/20/20 03/15/21 10/31/20 09:00 History Cinacalcet 30 mg PO DAILY 04/20/20 03/15/21 10/31/20 09:00 History Dialyvite with Zinc Tablet 1 tab PO DAILY 04/20/20 03/15/21 10/31/20 09:00 History Magnesium 250 mg PO BID 04/20/20 03/15/21 10/31/20 17:00 History Triamcinolone 0.1% 1 1000units TRANSDERMA DAILY 04/20/20 03/15/21 10/31/20 09:00 History Vit B12/Folic Acid/B6/Aa No.15 1,000 mg PO DAILY 04/20/20 03/15/21 10/31/20 09:00 History amLODIPine 10 mg PO DAILY 06/09/20 03/15/21 10/31/20 09:00 History AtorvaSTATin 40 mg PO HS 11/01/20 03/15/21 10/31/20 21:00 History Benadryl 25 mg PO HS 11/01/20 03/15/21 10/31/20 21:00 History Diclofenac 1 applic TRANSDERMA QID 11/01/20 03/15/21 10/31/20 19:00 History Vitamin D3 2,000 units PO QDAY 11/01/20 03/15/21 10/31/20 09:00 History carvediloL 12.5 mg PO DAILY 11/01/20 03/15/21 10/31/20 09:00 History hydrALAZINE 100 mg PO TID 11/01/20 03/15/21 10/31/20 19:00 History Fluticasone Propionate 1 spray INTRANASAL DAILY #1 02/21/21 03/15/21 Unknown Rx HYDROcodone/ACETAMINOPHEN 15 ml PO Q6H PRN #150 ml 02/21/21 03/15/21 Unknown Rx [Hydrocodon-Acetamin 7.5-325/15] Insulin Glargine [Lantus VIAL] 5 units SUB-Q QHS #1 units 02/21/21 03/15/21 Unknown Rx Lispro Insulin [HumaLOG] See Protocol SUB-Q Q6HR #1 vial 02/21/21 03/15/21 Unknown Rx Scopolamine [Transderm-Scop] 1 each TD Q3D #10 patch 02/21/21 03/15/21 Unknown Rx cloNIDine-TTS PATCH [Catapres-Tts 0.2 mg TD We #30 patch 02/21/21 03/15/21 Unknown Rx 0.2mg Patch] Active Medications: Generic Name Dose Route Start Last Admin Trade Name Freq PRN Reason Stop Dose Admin Acetaminophen 650 mg 03/15/21 19:31 03/17/21 20:29 Acetaminophen 325 Mg Tab PO 650 mg Q4H PRN Administration Pain MILD(1-3)/Fever >100.5/HULL Hydrocodone Bitart/Acetaminophen 7.5 mg 03/15/21 19:39 Hydrocodone/Acetaminophen 7.1-037il-63hr Oral Liqd PO Q6H PRN Pain , Severe (7-10) Albuterol 2.5 mg 03/15/21 19:31 Albuterol 2.5 Mg/3 Ml Nebu IH Q4HRT PRN Shortness Of Breath Calcium Acetate 667 mg 03/16/21 10:00 03/24/21 13:14 Calcium Acetate 667 Mg Cap PO Not Given DAILY THOMAS Cholecalciferol 2,000 unit 03/16/21 10:00 03/24/21 13:14 Cholecalciferol (Vit D3) 1000 Unit (25 Mcg) Tab PO Not Given QDAY THOMAS Clonidine HCl 0.3 mg 03/28/21 10:00 Clonidine Tts 0.3 Mg/24 Hr Patch TD Tu THOMAS Dextrose 50 ml 03/15/21 19:46 Dextrose 50% In Water (25gm) 50 Ml Syringe IV Q30MIN PRN Hypoglycemia Protocol Famotidine 10 mg 03/15/21 22:00 03/24/21 22:37 Famotidine 20 Mg/2 Ml Inj IV 10 mg BID THOMAS Administration Heparin Sodium (Porcine) 3,200 unit 03/15/21 17:16 03/17/21 14:35 Heparin 10,000 Units/10 Ml Vial 40 unit/kg (3200 unit) 3,200 unit IV Administration Q6H PRN Anti-Xa Assay<0.1 units/ml Hydralazine HCl 10 mg 03/22/21 10:05 03/25/21 05:51 Hydralazine 20 Mg/1 Ml Inj IV 10 mg Q30MIN PRN Administration Hypertension Hydromorphone HCl 0.5 mg 03/15/21 19:31 Hydromorphone 1 Mg/1 Ml Inj IV Q3H PRN Pain , Severe (7-10) Sodium Chloride 100 mls @ 999 mls/hr 03/15/21 16:00 Nacl 0.9% IV RYLAND PRN Hypotension Heparin Sodium/Sodium Chloride 25,000 unit in 500 mls @ 23 mls/hr 03/16/21 07:00 03/22/21 16:12 Heparin/ 0.45% Nacl-25,000 Unit/500 Ml IV 2,050 units/hr TITR THOMAS 41 mls/hr Administration Protocol 1,150 UNITS/HR Micafungin Sodium 100 mg/ 100 mls @ 100 mls/hr 03/16/21 19:00 03/24/21 18:11 Sodium Chloride IV Not Given Q24H [facility] Protocol Dextrose/Sodium Chloride 1,000 mls @ 42 mls/hr 03/20/21 16:00 D5ns IV DIRECT THOMAS Vancomycin HCl 1 gm in 250 mls @ 167.007 mls/hr 03/25/21 10:00 Vancomycin/Ns 1 Gm/250 Ml IV 03/25/21 11:29 ONCE ONE Insulin Human Regular 0 units 03/15/21 20:00 03/25/21 02:14 Insulin Regular, Human 100 Units/1 Ml SUB-Q Not Given Q6H [facility] Protocol Morphine Sulfate 2 mg 03/15/21 19:31 03/16/21 13:27 Morphine 2 Mg/1 Ml Inj IV 2 mg Q4H PRN Administration Pain, Moderate (4-6) Ondansetron HCl 4 mg 03/15/21 19:31 Ondansetron 4 Mg/2 Ml Inj IV Q8H PRN Nausea And Vomiting Scopolamine 1 each 03/16/21 10:00 03/22/21 10:01 Scopolamine Transdermal Patch 72 Hr TD 1 each Q3D THOMAS Administration Sodium Chloride 10 ml 03/15/21 22:00 03/24/21 22:38 Sodium Chloride 0.9% 10 Ml Flush Syringe IV 10 ml BID THOMAS Administration Sodium Chloride 10 ml 03/15/21 20:31 Sodium Chloride 0.9% 10 Ml Flush Syringe IV PRN PRN LINE FLUSH Triamcinolone Acetonide 1 applic 03/22/21 12:00 03/24/21 09:26 Triamcinolone 0.1% Cream 15 Gm TP Not Given DAILY THOMAS
--- NOTE | 2021-03-25 10:54 | Progress Note ---
Assessment and Plan Cultures: Blood culture 03/15/2021 growing Gwendolyn glabrata, Coag negative staph in multiple bottles 03/16/2021 urine culture: No growth 03/18/2021 blood culture: No growth Assessment: 61-year-old male with history of ESRD initially on PD, CHF, , Crohn's disease, CHF, gastroesophageal reflux disease, status post prolonged hospital complicated stay from 12/22/2020-02/21/2021 due to complicated small bowel obstruction with necrotic small bowel s/p small bowel resection and primary anastomosis, requiring right hemicolectomy on 01/03/2021, complicated with a Streptococcus bovis and Prevotella bacteremia on 12/22/2020, complicated with perforated anastomosis, s/p multiple surgeries readmitted on 03/15/2021 secondary to fever, hypoxia and altered mental status/somnolence: #Severe sepsis: likely secondary to candidemia. #Candidemia: present in several bottles of blood cultures. Likely due to intra-abdominal collection versus central line infection, patient had dialysis catheter as well as tunneled line, is on TPN. TTE without obvious vegetations on the valves. Lines removed 03/20/2021. #Coag negative staph bacteremia: Possibly due to central line infection. #Pancreatic pseudocyst vs intra-abdominal collection: CT with 6.6 x 3.3 x 4.8 cm pseudocyst could be source of candidemia. CRP 14.9. Lipase normal. #Complicated small bowel obstruction: with necrotic small bowel s/p small bowel resection and primary anastomosis, requiring right hemicolectomy on 01/03/2021, and multiple other surgeries and abx. #Acute pulmonary embolism: On anticoagulation. #Elevated LFTs: Likely secondary to sepsis/pancreatic pseudocyst more than acute hepatitis B infection. Patient noted to have hepatitis B core IgM positive ? False positive versus acute hepatitis B less likely. #ESRD on hemodialysis. Renally adjust antibiotics. #Acute encephalopathy: Likely secondary to sepsis. Improving. Recommendations: -Continue IV micafungin till Gwendolyn glabrata susceptibilities are available. Total treatment of at least 14 days from negative cultures. May be able to do high dose fluconazole if susceptible. End date: 03/30/2021 -continue renally dosed IV vancomycin added due to coag negative staph bacteremia x 7 days, ending 03/27/2021. -Follow-up hepatitis B DNA PCR Yesika Denny MD, FACP [facility] ([facility]) O: [phone] F: [phone] Subjective Date of service: 03/25/21 Principal diagnosis: Hypoxia, fever Interval history: Patient is afebrile. No complaints. Lying in bed. Objective - Exam Narrative Exam: Physical Exam: Constitutional: Alert, no distress Head, Ears, Nose: Normocephalic, atraumatic. External ears, nose normal Eyes: Conjunctivae/corneas clear. No icterus. No ptosis. Neck: Supple, no meningeal signs Cardiovascular: S1, S2 normal. Respiratory: Good air entry, clear to auscultation bilaterally GI: Soft, non-tender; bowel sounds normal. No peritoneal signs. Drain + Musculoskeletal: No pedal edema, no cyanosis. Right neck region dressings + . Left neck with new lines Skin: No rash or abscess Hem/Lymphatic: No palpable cervical or supraclavicular nodes. No lymphangitis Psych: no agitation Neurological: Awake, alert, answering questions - Constitutional Vitals: Vital Signs Temp Pulse Resp BP Pulse Ox 99.0 F 82 18 168/78 96 03/25/21 07:42 03/25/21 07:42 03/25/21 07:42 03/25/21 07:42 03/25/21 09:22 Temperature -Last 24 Hours Temperature 99.0 F Temperature 98.0 F Temperature 98.0 F Temperature 99.8 F Temperature 98.0 F Temperature 98.9 F - Labs CBC & Chem 7: 03/23/21 05:20 03/23/21 05:20
[2021-03-25] MEDS: TRIAMCINOLONE 0.1% CREAM 15 GM TP SCH (11:41)
[2021-03-25] MEDS: FAMOTIDINE 20 MG/2 ML INJ IV SCH ×2 (11:42→23:19)
[2021-03-25] MEDS: SCOPOLAMINE TRANSDERMAL PATCH 72 HR TD SCH (11:43)
[2021-03-25] MEDS: CALCIUM ACETATE 667 MG CAP PO SCH (11:43)
[2021-03-25] MEDS: CHOLECALCIFEROL (VIT D3) 1000 UNIT (25 mcg) TAB PO SCH (11:44)
[2021-03-25] MEDS: D5W/0.9% NACL 1,000 ML IV SCH (12:01)
[2021-03-25 12:13] LABS: Hematocrit 21.4 % (35.5-45.6); Mean Corpuscular HGB Conc 32 % (32-34); Mean Corpuscular Volume 93 fl (84-94); Platelet Count 291 K/mm3 (140-440); Red Cell Distribution Width 18.2 % (13.2-15.2)
[2021-03-25] MEDS ORDERED: HEPARIN 10,000 UNIT/1 ML VIAL IV ONE (13:12)
--- NOTE | 2021-03-25 13:12 | Progress Note ---
Assessment and Plan 60-year-old male, with extensive history of multiple abdominal surgeries, controlled anastomotic leak that is transitioning to a fistula, and new acute pulmonary embolism. Stable and afebrile. Sepsis work up - blood cultures positive for fungus, IV access removed and replaced. We will add Flagyl to antibiotic regimen since patient is complaining of pain around drain site with elevated white blood cell count. Pulmonary embolism-supportive care and treat with anticoagulation -spoke with Dr. James the plan is to start him on Eliquis. Abdominal fluid collection consistent with pancreatic pseudocyst-no acute intervention planned at this time. Spoke to interventional radiology who said that the collection is not assessable externally. Will consult GI, for evaluation and follow-up and determine if he is amenable for endoscopic transgastric drainage of collection. I do not believe this service is offered at this facility and patient may need to get this done as an outpatient or transferred. With that said, assuming this is a pseudocyst, it may take a few weeks to get a mature wall of the cyst and allow for further interventional management. Anastomotic leak-we will continue TPN, will allow clear liquids and monitor ou tput. Would like to make sure that the output returns to minimal as it was prior to discharge at his last admission. Needs new PICC line access placed before discharge to allow for continued TPN. Encourage patient to drink oral protein supplements. Renal failure-dialysis per renal No acute general surgical intervention indicated at this time we will continue to follow. Subjective Date of service: 03/25/21 Narrative: No acute events overnight. Patient is more cooperative than 2 days ago, however he is removing his drain bulb at times and refused is to have it replaced. Patient also intermittently refuses TPN however this morning he says he is willing to have it reconnected this evening. Patient complains of abdominal pain around his drain site. Patient denies any nausea or vomiting and is continue to have bowel movements. Objective Vital Signs - 12hr 03/25/21 03/25/21 03/25/21 04:17 05:51 06:38 Temperature 98.0 F Pulse Rate 69 69 Respiratory 18 Rate Blood Pressure 187/80 187/80 O2 Sat by Pulse 96 97 Oximetry 03/25/21 03/25/21 07:42 09:22 Temperature 99.0 F Pulse Rate 82 Respiratory 18 Rate Blood Pressure 168/78 O2 Sat by Pulse 92 96 Oximetry - General physical appearance well developed, no distress, no pain - Respiratory normal expansion, normal respiratory effort - Abdomen soft, other (Tender around drain site, light brown fluid in HARIS drain with 20 cc recorded last 24 hours, G-tube in place) - Labs 03/25/21 11:45 03/23/21 05:20
[2021-03-25] MEDS: DICYCLOMINE 10 MG/5 ML ORAL LIQD PO SCH ×3 (13:50→23:19)
[2021-03-25] MEDS: HEPARIN/ 0.45% NACL DRIP 25,000 UNIT/500 ML BAG IV SCH (13:54)
[2021-03-25] MEDS ORDERED: HEPARIN 10,000 UNITS/10 ML VIAL IV ONE (14:00)
[2021-03-25] MEDS: metroNIDAZOLE/NS 500 MG/100 ML 500 MG/100 ML BAG IV SCH ×2 (14:32→23:20)
[2021-03-25] MEDS: MICAFUNGIN 100 MG in SODIUM CHLORIDE 0.9% 100 ML IV SCH (18:40)
[2021-03-25] MEDS ORDERED: TOTAL PARENTERAL NUTRITION 1,800 ML IV SCH (20:00)
[2021-03-26] MEDS ORDERED: HEPARIN 10,000 UNITS/10 ML VIAL IV ONE (00:37)
[2021-03-26] MEDS: INSULIN REGULAR, HUMAN 100 UNITS/1 ML SUB-Q SCH ×4 (01:25→21:55)
[2021-03-26] MEDS: metroNIDAZOLE/NS 500 MG/100 ML 500 MG/100 ML BAG IV SCH ×3 (06:09→22:38)
[2021-03-26 08:19] LABS: Albumin 3.5 g/dL (3.9-5); Calcium 9.1 mg/dL (8.4-10.2)
[2021-03-26] MEDS: HEPARIN/ 0.45% NACL DRIP 25,000 UNIT/500 ML BAG IV SCH ×2 (09:51→16:58)
[2021-03-26] MEDS: CALCIUM ACETATE 667 MG CAP PO SCH (10:35)
[2021-03-26] MEDS: CHOLECALCIFEROL (VIT D3) 1000 UNIT (25 mcg) TAB PO SCH (10:35)
[2021-03-26] MEDS: TRIAMCINOLONE 0.1% CREAM 15 GM TP SCH (10:36)
[2021-03-26] MEDS: DICYCLOMINE 10 MG/5 ML ORAL LIQD PO SCH ×4 (10:44→22:36)
[2021-03-26] MEDS: FAMOTIDINE 20 MG/2 ML INJ IV SCH ×2 (10:44→22:38)
--- NOTE | 2021-03-26 12:29 | Progress Note ---
Assessment and Plan Assessment and plan: - Patient Problems (1) Elevated liver transaminase level Current Visit: Yes Status: Resolved Plan to address problem: Resolved. (2) Altered mental status Current Visit: Yes Status: Acute Plan to address problem: Encephalopathy has resolved. Patient is alert oriented x3. Angry and agitated today secondary to prolonged hospital stay and wants to go home. (3) Fever Current Visit: Yes Status: Acute Plan to address problem: Remains afebrile. (4) Pulmonary embolus Current Visit: Yes Status: Acute Plan to address problem: Patient pulmonary embolus. He has been refusing heparin. Now today he states that he is okay to use heparin. Plan would be upon discharge start patient on Eliquis for treatment for PE. He can swallow the pill. (5) CHF (congestive heart failure) Current Visit: No Status: Acute Qualifiers: Heart failure chronicity: chronic Plan to address problem: Fairly well compensated at this time. (6) ESRD (end stage renal disease) Current Visit: No Status: Acute Plan to address problem: Patient to received Vas-Cath placed Plan is to place a tunneled hemodialysis catheter and tunnel triple-lumen catheter so patient can receive dialysis and TPN on Saturday (7) Full code status Current Visit: No Status: Acute (8) Hepatitis B core antibody positive Current Visit: Yes Status: Acute Plan to address problem: Supportive care Gentle fluid hydration since patient is on hemodialysis. ID consult (9) Ischemic bowel disease Current Visit: Yes Status: Acute Plan to address problem: Patient with Crohn's disease. Has some abdominal pain when patient tries to eat and takes TPN that is why she is refusing TPN. (10) Anemia Current Visit: Yes Status: Acute Plan to address problem: Transfuse for H&H less than 7. Subjective Date of service: 03/25/21 Principal diagnosis: Hypoxia, fever Interval history: 60-year-old male resident of [facility] with past history of congestive heart failure, hypertension, end-stage renal disease and Crohn's disease with extensive history of multiple abdominal surgeries for Small bowel obstruction/necrotic bowel, controlled anastomotic leak that is transitioning to a fistula presents to the ED with a chief complaint of fever hypoxemia acute respiratory failure. Patient received CT scan in the a.m. for work-up of hypoxemia and was found to have right sided pulmonary embolism. Patient was admitted placed on heparin drip. Patient was also complaining of some abdominal pain of which a CT scan of the abdomen and pelvis showed a 6 cm fluid collection between the stomach and the pancreas suggestive of a pancreatic pseudocyst. Daily clinical course: 03/16/21: Hemoglobin 6.0 this morning, continue to transfuse. Monitor H&H carefully while patient on heparin drip. Noted general surgery and IR recommendation. Will consult GI for pancreatic pseudocyst. Continue to follow clinically with supportive care. Blood culture growing yeast we'll also add fluconazole. 03/17/21: Patient receiving hemodialysis, BP appears to be stable, continue em piric antibiotic. Follow ID and GI recommendation. Per general surgery no intervention required for pancreatic pseudocyst. If patient condition return to [facility] may need to transfer to tertiary center for possible drainage. 03/18/21: Continue empiric antibiotics, hemodialysis per nephrology. Continue TPN. Patient H&H remained stable, continue to follow BMP. Transfer out of [facility] to telemetry. 03/19/21: Patient transferred to telemetry today. H&H remained stable. White count slightly elevated, will follow CBC. Repeat blood culture from 03/18/21 having no growth. Continue empiric antibiotics per ID and TPN. Discharge planning per general surgery and ID recommendation. Patient intermittently refusing care; counseled extensively he verbalized understanding and promised to follow hospital protocol and MD recommendations 10/21/20: Removed right-sided PermCath today per vascular as patient blood culture initially was positive for yeast. Continue empiric antibiotics per ID recommendation. Dialysis per nephrology. Continue TPN and follow BMP. Per ID: Due to fungemia, will need blood cultures to be negative at 5 days (03/23/2021) before new tunneled lines can be placed (Ok to place temporary ones if needed). 10/22/20; patient appears clinically stable, continue heparin drip and TPN. Patient last dialysis was on Saturday. Repeat blood culture need to be neg till for placing new PermCath for dialysis. Continue to monitor off dialysis. Final blood culture data and sensitivity is pending. 10/23/20: continue heparin drip and TPN. Patient last dialysis was on Saturday. Repeat blood culture need to be neg till for placing new PermCath for dialysis. Final blood culture data and sensitivity is pending. Planned to place permcath tomorrow by vascular if repeat blood cx remains neg. 03/23/2021. Patient very agitated today. This morning has refused heparin. Has refused all meds at this time. Unable to tell why. Not answering the question when I asked what can I do for you to assist you with your care. Patient is going to have hemodialysis catheter placed today. Patient has been 5 days without any goal for blood cultures. Multiple episodes in the past with bacteremia and fungemia. 03/24/2021 patient remains agitated today. Was dragging tube along the floor. Refused heparin again. Continue refuse medications not answering me at this time. Not as belligerent as yesterday but still noncompliant with treatment at this time. Discussion with case management/daughter. Agreed to go home. Patient will need PICC line for TPN. Will order PICC line anticipated discharge in a.m. Patient's much more stable today. Good conversation. Patient states he was just frustrated. Patient is excepting heparin now. Should be able to change to Eliquis upon discharge patient is not having any procedures. Plan will be to discharge home in a.m. after hemodialysis catheter and triple-lumen has been placed. Patient also has abdominal spasms and pain today. Patient has been eating and taking TPN when he does this he has abdominal pain and diarrhea. We will try short trial of Bentyl to see if this will help with abdominal spasms. 03/26: Although sometimes he refuses his TPN he aspirates very connected and is currently going. Still has some abdominal pain at his drain site. Could not ascertain if he is eating or not while waiting for nurse to review records and also discussed with the patient but he was not able to talk to me. We will continue to reevaluate. Continue drain management per surgeon. History Interval history: Patient seen and examined, no new complaints by staff except patient non complaint with his drains, gets intermittently agitated Hospitalist Physical - Physical exam Narrative exam: General appearance: Present: no acute distress, - EENT Eyes: PERRL, EOM intact - Respiratory Respiratory effort: normal - Cardiovascular Rhythm: regular Heart Sounds: Present: S1 & S2. Absent: gallop, rub Extremities: pulses intact, No edema, normal color, Full ROM - Gastrointestinal General gastrointestinal: Present: soft, tender, non-distended, hypoactive bowel sounds - Musculoskeletal Musculoskeletal: 1, strength equal bilaterally - Neurologic Neurologic: moves all extremities - Psychiatric Psychiatric: memory intact, appropriate mood/affect, intact judgment & insight - Constitutional Vitals: Temp Pulse Resp BP Pulse Ox 98.6 F 71 18 173/85 95 03/26/21 07:46 03/26/21 07:46 03/26/21 07:46 03/26/21 07:46 03/26/21 10:00 General appearance: Present: no acute distress, other (Agitated) Results - Labs CBC & Chem 7: 03/25/21 11:45 03/26/21 07:04 Labs: Laboratory Last Values WBC 11.9 K/mm3 (4.5-11.0) H 03/25/21 11:45 RBC 2.30 M/mm3 (3.65-5.03) L 03/25/21 11:45 Hgb 7.0 gm/dl (11.8-15.2) L 03/25/21 11:45 Hct 21.4 % (35.5-45.6) L 03/25/21 11:45 MCV 93 fl (84-94) 03/25/21 11:45 MCH 30 pg (28-32) 03/25/21 11:45 MCHC 32 % (32-34) 03/25/21 11:45 RDW 18.2 % (13.2-15.2) H 03/25/21 11:45 Plt Count 291 K/mm3 (140-440) 03/25/21 11:45 Lymph % (Auto) 15.5 % (13.4-35.0) 03/23/21 05:20 Bureau % (Auto) 7.4 % (0.0-7.3) H 03/23/21 05:20 Eos % (Auto) 4.0 % (0.0-4.3) 03/23/21 05:20 Baso % (Auto) 0.8 % (0.0-1.8) 03/23/21 05:20 Lymph # (Auto) 1.0 K/mm3 (1.2-5.4) L 03/23/21 05:20 Bureau # (Auto) 0.5 K/mm3 (0.0-0.8) 03/23/21 05:20 Eos # (Auto) 0.3 K/mm3 (0.0-0.4) 03/23/21 05:20 Baso # (Auto) 0.1 K/mm3 (0.0-0.1) 03/23/21 05:20 Add Manual Diff Complete 03/17/21 05:57 Total Counted 100 03/17/21 05:57 Seg Neutrophils % 72.3 % (40.0-70.0) H 03/23/21 05:20 Seg Neuts % (Manual) 75.0 % (40.0-70.0) H 03/17/21 05:57 Band Neutrophils % 2.0 % 03/17/21 05:57 Lymphocytes % (Manual) 12.0 % (13.4-35.0) L 03/17/21 05:57 Reactive Lymphs % (Man) 1.0 % 03/15/21 11:23 Monocytes % (Manual) 5.0 % (0.0-7.3) 03/17/21 05:57 Eosinophils % (Manual) 6.0 % (0.0-4.3) H 03/17/21 05:57 Basophils % (Manual) 1.0 % (0.0-1.8) 03/16/21 07:45 Nucleated RBC % Not Reportable 03/17/21 05:57 Seg Neutrophils # 4.8 K/mm3 (1.8-7.7) 03/23/21 05:20 Seg Neutrophils # Man 6.5 K/mm3 (1.8-7.7) 03/17/21 05:57 Band Neutrophils # 0.2 K/mm3 03/17/21 05:57 Lymphocytes # (Manual) 1.0 K/mm3 (1.2-5.4) L 03/17/21 05:57 Abs React Lymphs (Man) 0.0 K/mm3 03/17/21 05:57 Monocytes # (Manual) 0.4 K/mm3 (0.0-0.8) 03/17/21 05:57 Eosinophils # (Manual) 0.5 K/mm3 (0.0-0.4) H 03/17/21 05:57 Basophils # (Manual) 0.0 K/mm3 (0.0-0.1) 03/17/21 05:57 Metamyelocytes # 0.0 K/mm3 03/17/21 05:57 Myelocytes # 0.0 K/mm3 03/17/21 05:57 Promyelocytes # 0.0 K/mm3 03/17/21 05:57 Blast Cells # 0.0 K/mm3 03/17/21 05:57 WBC Morphology Not Reportable 03/17/21 05:57 Hypersegmented Neuts Not Reportable 03/17/21 05:57 Hyposegmented Neuts Not Reportable 03/17/21 05:57 Hypogranular Neuts Not Reportable 03/17/21 05:57 Smudge Cells Not Reportable 03/17/21 05:57 Toxic Granulation Not Reportable 03/17/21 05:57 Toxic Vacuolation Not Reportable 03/17/21 05:57 Dohle Bodies Not Reportable 03/17/21 05:57 Pelger-Huet Anomaly Not Reportable 03/17/21 05:57 Lamar Rods Not Reportable 03/17/21 05:57 Platelet Estimate Consistent w auto 03/17/21 05:57 Clumped Platelets Not Reportable 03/17/21 05:57 Plt Clumps, EDTA Not Reportable 03/17/21 05:57 Large Platelets Not Reportable 03/17/21 05:57 Giant Platelets Rare 03/17/21 05:57 Platelet Satelliting Not Reportable 03/17/21 05:57 Plt Morphology Comment Not Reportable 03/17/21 05:57 RBC Morphology Not Reportable 03/17/21 05:57 Dimorphic RBCs Not Reportable 03/17/21 05:57 Polychromasia Not Reportable 03/17/21 05:57 Hypochromasia Few 03/17/21 05:57 Poikilocytosis Not Reportable 03/17/21 05:57 Anisocytosis Few 03/17/21 05:57 Microcytosis Not Reportable 03/17/21 05:57 Macrocytosis Not Reportable 03/17/21 05:57 Spherocytes Not Reportable 03/17/21 05:57 Pappenheimer Bodies Not Reportable 03/17/21 05:57 Sickle Cells Not Reportable 03/17/21 05:57 Target Cells Not Reportable 03/17/21 05:57 Tear Drop Cells Not Reportable 03/17/21 05:57 Ovalocytes Not Reportable 03/17/21 05:57 Helmet Cells Not Reportable 03/17/21 05:57 [place] Bodies Not Reportable 03/17/21 05:57 [place] Rings Not Reportable 03/17/21 05:57 [place] Cells Not Reportable 03/17/21 05:57 Bite Cells Not Reportable 03/17/21 05:57 Crenated Cell Not Reportable 03/17/21 05:57 Elliptocytes Not Reportable 03/17/21 05:57 Acanthocytes (Spur) Not Reportable 03/17/21 05:57 Rouleaux Not Reportable 03/17/21 05:57 Hemoglobin C Crystals Not Reportable 03/17/21 05:57 Schistocytes Not Reportable 03/17/21 05:57 Malaria parasites Not Reportable 03/17/21 05:57 Lucas Bodies Not Reportable 03/17/21 05:57 Hem Pathologist Commnt No 03/17/21 05:57 PT 14.4 Sec. (12.2-14.9) 03/15/21 23:21 INR 1.07 (0.87-1.13) 03/15/21 23:21 APTT 29.7 Sec. (24.2-36.6) 03/15/21 23:21 Heparin Anti-Xa Level 0.13 U.I./ml (0.3-0.7) L 03/26/21 07:04 ABG pH 7.367 (7.320-7.450) 03/15/21 12:54 POC ABG pCO2 28.5 mmHg (32.0-48.0) L 03/15/21 12:54 POC ABG pO2 62.8 mmHg (83-108) L 03/15/21 12:54 POC ABG HCO3 16.0 03/15/21 12:54 ABG O2 Saturation 89.9 (0-100) 03/15/21 12:54 POC ABG Base Excess -8.5 03/15/21 12:54 ABG Hemoglobin 6.3 (12.0-17.5) L 03/15/21 12:54 ABG Oxyhemoglobin 87.9 (94-98) L 03/15/21 12:54 ABG Methemoglobin 0.3 (0.0-1.5) 03/15/21 12:54 ABG Sodium 127.9 mmol/L (136.0-145.0) L 03/15/21 12:54 ABG Potassium 4.3 mmol/L (3.40-4.50) 03/15/21 12:54 ABG Chloride 100.0 mmol/L (98-107) 03/15/21 12:54 ABG Glucose 98 mg/dL (65-95) H 03/15/21 12:54 VBG pH 7.344 (7.320-7.420) 03/15/21 11:23 Carboxyhemoglobin 1.9 (0.5-1.5) H 03/15/21 12:54 FiO2 % 21.0 03/15/21 12:54 Sodium 142 mmol/L (137-145) 03/26/21 07:04 Potassium 3.7 mmol/L (3.6-5.0) 03/26/21 07:04 Chloride 105.2 mmol/L (98-107) 03/26/21 07:04 Carbon Dioxide 22 mmol/L (22-30) 03/26/21 07:04 Anion Gap 19 mmol/L 03/26/21 07:04 BUN 29 mg/dL (9-20) H 03/26/21 07:04 Creatinine 10.0 mg/dL (0.8-1.3) H 03/26/21 07:04 Estimated GFR 6 ml/min 03/26/21 07:04 BUN/Creatinine Ratio 3 % 03/26/21 07:04 Glucose 104 mg/dL (75-100) H 03/26/21 07:04 POC Glucose 115 mg/dL (70-105) H 03/26/21 10:43 Lactic Acid 0.80 mmol/L (0.7-2.0) 03/15/21 15:55 Calcium 9.1 mg/dL (8.4-10.2) 03/26/21 07:04 Phosphorus 4.90 mg/dL (2.5-4.5) H 03/26/21 07:04 Magnesium 1.90 mg/dL (1.7-2.3) 03/26/21 07:04 Total Bilirubin 0.90 mg/dL (0.1-1.2) 03/26/21 07:04 Direct Bilirubin 0.4 mg/dL (0-0.2) H 03/18/21 06:08 Indirect Bilirubin 0.9 mg/dL 03/18/21 06:08 AST 21 units/L (5-40) 03/26/21 07:04 ALT 34 units/L (7-56) 03/26/21 07:04 Alkaline Phosphatase 191 units/L (35-129) H 03/26/21 07:04 C-Reactive Protein 14.90 mg/dL (0.00-1.30) H 03/16/21 18:45 Total Protein 6.5 g/dL (6.3-8.2) 03/26/21 07:04 Albumin 3.5 g/dL (3.9-5) L 03/26/21 07:04 Albumin/Globulin Ratio 1.2 % 03/26/21 07:04 Triglycerides 76 mg/dL (2-149) 03/21/21 03:23 Lipase 41 units/L (13-60) 03/16/21 18:45 Arterial Blood Glucose 98 mg/dL (65-95) H 03/15/21 12:54 Urine Color [place] (Yellow) 03/16/21 14:45 Urine Turbidity Hazy (Clear) 03/16/21 14:45 Urine pH 5.0 (5.0-7.0) 03/16/21 14:45 Ur Specific [place] 1.015 (1.003-1.030) 03/16/21 14:45 Urine Protein >500 mg/dL (Negative) 03/16/21 14:45 Urine Glucose (UA) Neg mg/dL (Negative) 03/16/21 14:45 Urine Ketones Neg mg/dL (Negative) 03/16/21 14:45 Urine Blood Lg (Negative) 03/16/21 14:45 Urine Nitrite Neg (Negative) 03/16/21 14:45 Urine Bilirubin Neg (Negative) 03/16/21 14:45 Urine Urobilinogen < 2.0 mg/dL (<2.0) 03/16/21 14:45 Ur Leukocyte Esterase Neg (Negative) 03/16/21 14:45 Urine WBC (Auto) 8.0 /HPF (0.0-6.0) H 03/16/21 14:45 Urine RBC (Auto) 3.0 /HPF (0.0-6.0) 03/16/21 14:45 U Epithel Cells (Auto) 1.0 /HPF (0-13.0) 03/16/21 14:45 Urine Mucus Few /HPF 03/16/21 14:45 Nasal Screen MRSA (PCR) Negative (Negative) 03/16/21 14:37 Random Vancomycin 13.6 ug/mL (0-40.0) 03/25/21 05:35 Coronavirus (PCR) Negative (Negative) 03/16/21 08:45 Hepatitis A IgM Ab Non-reactive (NonReactive) 03/15/21 15:55 Hep Bs Antigen Non-reactive (Negative) 03/15/21 15:55 Hep B Core IgM Ab Reactive (NonReactive) A 03/15/21 15:55 Hepatitis C Antibody Non-reactive (NonReactive) 03/15/21 15:55 Blood Type A POSITIVE 03/23/21 14:17 Antibody Screen Negative 03/23/21 14:17 Crossmatch See Detail 03/23/21 14:17 Jeffery/IV: Voiding Method Toilet Active Medications - Current Medications Current Medications: Generic Name Dose Route Start Last Admin Trade Name Freq PRN Reason Stop Dose Admin Acetaminophen 650 mg 03/15/21 19:31 03/17/21 20:29 Acetaminophen 325 Mg Tab PO 650 mg Q4H PRN Administration Pain MILD(1-3)/Fever >100.5/HULL Hydrocodone Bitart/Acetaminophen 7.5 mg 03/15/21 19:39 Hydrocodone/Acetaminophen [id number] Oral Liqd PO Q6H PRN Pain , Severe (7-10) Albuterol 2.5 mg 03/15/21 19:31 Albuterol 2.5 Mg/3 Ml Nebu IH Q4HRT PRN Shortness Of Breath Calcium Acetate 667 mg 03/16/21 10:00 03/26/21 10:35 Calcium Acetate 667 Mg Cap PO Not Given DAILY THOMAS Cholecalciferol 2,000 unit 03/16/21 10:00 03/26/21 10:35 Cholecalciferol (Vit D3) 1000 Unit (25 Mcg) Tab PO Not Given QDAY THOMAS Clonidine HCl 0.3 mg 03/28/21 10:00 Clonidine Tts 0.3 Mg/24 Hr Patch TD Tu THOMAS Dextrose 50 ml 03/15/21 19:46 Dextrose 50% In Water (25gm) 50 Ml Syringe IV Q30MIN PRN Hypoglycemia Protocol Dicyclomine HCl 10 mg 07/31/21 14:00 03/26/21 10:44 Dicyclomine 10 Mg/5 Ml Oral Liqd PO 10 mg QID THOMAS Administration Famotidine 10 mg 03/15/21 22:00 03/26/21 10:44 Famotidine 20 Mg/2 Ml Inj IV 10 mg BID THOMAS Administration Heparin Sodium (Porcine) 3,200 unit 03/15/21 17:16 03/17/21 14:35 Heparin 10,000 Units/10 Ml Vial 40 unit/kg (3200 unit) 3,200 unit IV Administration Q6H PRN Anti-Xa Assay<0.1 units/ml Hydralazine HCl 10 mg 03/22/21 10:05 03/25/21 23:19 Hydralazine 20 Mg/1 Ml Inj IV 10 mg Q30MIN PRN Administration Hypertension Hydromorphone HCl 0.5 mg 03/15/21 19:31 Hydromorphone 1 Mg/1 Ml Inj IV Q3H PRN Pain , Severe (7-10) Sodium Chloride 100 mls @ 999 mls/hr 03/15/21 16:00 Nacl 0.9% IV RYLAND PRN Hypotension Heparin Sodium/Sodium Chloride 25,000 unit in 500 mls @ 23 mls/hr 03/16/21 07:00 03/26/21 09:51 Heparin/ 0.45% Nacl-25,000 Unit/500 Ml IV 1,400 units/hr TITR THOMAS 28 mls/hr Administration Protocol 1,150 UNITS/HR Micafungin Sodium 100 mg/ 100 mls @ 100 mls/hr 03/16/21 19:00 03/25/21 18:40 Sodium Chloride IV 100 mls/hr Q24H THOMAS Administration Protocol Dextrose/Sodium Chloride 1,000 mls @ 42 mls/hr 03/20/21 16:00 03/25/21 12:01 D5ns IV 42 mls/hr DIRECT THOMAS Administration Amino Acids/Electrolytes/Dextrose 1,800 mls @ 75 mls/hr 03/25/21 20:00 03/25/21 23:16 Tpn Adult IV 03/26/21 19:59 75 mls/hr DAILY@2000 THOMAS Administration Protocol Metronidazole 500 mg in 100 mls @ 100 mls/hr 03/25/21 14:00 03/26/21 06:09 Flagyl 500 Mg/100 Ml IV 100 mls/hr Q8H [facility] Administration Protocol Amino Acids/Electrolytes/Dextrose 1,800 mls @ 75 mls/hr 03/26/21 20:00 Tpn Adult IV 03/27/21 19:59 DAILY@1999 [facility] Protocol Insulin Human Regular 0 units 03/15/21 20:00 03/26/21 07:55 Insulin Regular, Human 100 Units/1 Ml SUB-Q Not Given Q6H [facility] Protocol Morphine Sulfate 2 mg 03/15/21 19:31 03/16/21 13:27 Morphine 2 Mg/1 Ml Inj IV 2 mg Q4H PRN Administration Pain, Moderate (4-6) Ondansetron HCl 4 mg 03/15/21 19:31 03/25/21 10:34 Ondansetron 4 Mg/2 Ml Inj IV 4 mg Q8H PRN Administration Nausea And Vomiting Scopolamine 1 each 03/16/21 10:00 03/25/21 11:43 Scopolamine Transdermal Patch 72 Hr TD 1 each Q3D THOMAS Administration Sodium Chloride 10 ml 03/15/21 22:00 03/26/21 10:35 Sodium Chloride 0.9% 10 Ml Flush Syringe IV 10 ml BID THOMAS Administration Sodium Chloride 10 ml 03/15/21 20:31 Sodium Chloride 0.9% 10 Ml Flush Syringe IV PRN PRN LINE FLUSH Triamcinolone Acetonide 1 applic 03/22/21 12:00 03/26/21 10:36 Triamcinolone 0.1% Cream 15 Gm TP Not Given DAILY [facility] Nutrition/Malnutrition Assess - Dietary Evaluation Nutrition/Malnutrition Findings: Nutrition Notes Start: 03/16/21 11:46 Freq: Status: Active Protocol: Document 03/26/21 10:14 JUAN (Rec: 03/26/21 10:19 [email or web address]) Nutrition Notes Initial or Follow up Reassessment Current Diagnosis CKD (stage V CKD),Hypertension ,Heart Failure Other Pertinent Diagnosis AMS, Fever, Pulmonary embolus Current Diet cl liq diet Labs/Tests Phos 4.9 Pertinent Medications reviewed Height 5 ft 7 in Weight 72.6 kg [place] Body Weight (kg) 67.27 BMI 25.0 Weight Status Appropriate Subjective/Other Information Day 10 PPN. Pt accepted PPN bag last night. Percent of energy/protein needs met: 45%/57% Burn Absent Trauma Absent GI Symptoms Nausea,Diarrhea Current % PO Negligible Minimum of two criteria No Interpretation of Weight Loss (severe) >2% in 1 week #1 Nutrition Diagnosis Inadequate oral intake Diagnosis Progress(for reassessment Continues documentation) Is patient on ventilator? No Is Patient Ambulatory and/or Out of Bed No REE-([facility]-confined to bed) 1786.702 Calculation Used for Recommendations [facility] Additional Notes Pro needs >1.2g/kg: >87g/day Fluid needs 1-1.5L/day Nutrition Intervention Change Diet Order: Diet advancement when medically feasible Nutrition Support: PPN at 75 ml/hr. Osm 889 mosm MVI Kcal 812 Protein (gm) 50 Carbohydrates (gm) 180 Fat (gm) 0 Fluid (mL) 1,800 Fiber (gm) 0 Goal #1 Meet needs as best as possible via TPN Goal #2 Diet advancement Anticipated Discharge Needs: Unable to identify at this time Follow-Up By: 03/27/21 Additional Comments F/u: PPN
--- NOTE | 2021-03-26 14:03 | Progress Note ---
Assessment and Plan Assessment * End-stage renal disease on hemodialysis * Sepsis * Candidemia --Permcath removal - March 20, 2021 * Hypertension * Anemia secondary to ESRD * Secondary hyperparathyroidism Recommendations * No acute indication for HD today * Continue HD MWF - UF as tolerated * Anticipate Permcath reinsertion on Saturday * Surgery recommendations noted * Transfuse pRBC prn * ID following - Micafungin IV per ID w/ possible transition to high dose flucon azole pending sensitivites * Epogen TIW prn * Continue antiHTN medications Subjective Date of service: 03/26/21 Principal diagnosis: Hypoxia, fever Interval history: Patient has no complaints Objective - Vital Signs Vital signs: Vital Signs - 12hr 03/26/21 03/26/21 03/26/21 05:40 07:46 10:00 Temperature 98.6 F 98.6 F Pulse Rate 78 71 Respiratory 18 18 Rate Blood Pressure 153/80 173/85 O2 Sat by Pulse 96 97 95 Oximetry - General Appearance General appearance: well-developed, well-nourished EENT: ATNC Gastrointestinal: distended Integumentary: no rash, warm and dry Neurologic: no focal deficit, alert and oriented x3 Psychiatric: cooperative - Lab 03/25/21 11:45 03/26/21 07:04 Most recent lab results ABG pH 7.367 (7.320-7.450) 03/15/21 12:54 ABG O2 Saturation 89.9 (0-100) 03/15/21 12:54 Calcium 9.1 mg/dL (8.4-10.2) 03/26/21 07:04 Phosphorus 4.90 mg/dL (2.5-4.5) H 03/26/21 07:04 Magnesium 1.90 mg/dL (1.7-2.3) 03/26/21 07:04 Medications & Allergies - Medications Allergies/Adverse Reactions: Allergies No Known Allergies Allergy (Verified 06/09/20 15:27) Home Medications: Home Medications Medication Instructions Recorded Confirmed Last Taken Type Albuterol Mdi (or & Nicu Only) 2 puff IH QID PRN #1 inhalation 04/01/17 03/15/21 10/31/20 09:00 Rx [ProAir HFA Inhaler] Calcium Acetate 667 mg PO DAILY 04/20/20 03/15/21 10/31/20 09:00 History Centrum Men's Tablet 1 tab PO DAILY 04/20/20 03/15/21 10/31/20 09:00 History Cinacalcet 30 mg PO DAILY 04/20/20 03/15/21 10/31/20 09:00 History Dialyvite with Zinc Tablet 1 tab PO DAILY 04/20/20 03/15/21 10/31/20 09:00 History Magnesium 250 mg PO BID 04/20/20 03/15/21 10/31/20 17:00 History Triamcinolone 0.1% 1 1000units TRANSDERMA DAILY 04/20/20 03/15/21 10/31/20 09:00 History Vit B12/Folic Acid/B6/Aa No.15 1,000 mg PO DAILY 04/20/20 03/15/21 10/31/20 09:00 History amLODIPine 10 mg PO DAILY 06/09/20 03/15/21 10/31/20 09:00 History AtorvaSTATin 40 mg PO HS 11/01/20 03/15/21 10/31/20 21:00 History Benadryl 25 mg PO HS 11/01/20 03/15/21 10/31/20 21:00 History Diclofenac 1 applic TRANSDERMA QID 11/01/20 03/15/21 10/31/20 19:00 History Vitamin D3 2,000 units PO QDAY 11/01/20 03/15/21 10/31/20 09:00 History carvediloL 12.5 mg PO DAILY 11/01/20 03/15/21 10/31/20 09:00 History hydrALAZINE 100 mg PO TID 11/01/20 03/15/21 10/31/20 19:00 History Fluticasone Propionate 1 spray INTRANASAL DAILY #1 02/21/21 03/15/21 Unknown Rx HYDROcodone/ACETAMINOPHEN 15 ml PO Q6H PRN #150 ml 02/21/21 03/15/21 Unknown Rx [Hydrocodon-Acetamin 7.5-325/15] Insulin Glargine [Lantus VIAL] 5 units SUB-Q QHS #1 units 02/21/21 03/15/21 Unknown Rx Lispro Insulin [HumaLOG] See Protocol SUB-Q Q6HR #1 vial 02/21/21 03/15/21 Unknown Rx Scopolamine [Transderm-Scop] 1 each TD Q3D #10 patch 02/21/21 03/15/21 Unknown Rx cloNIDine-TTS PATCH [Catapres-Tts 0.2 mg TD We #30 patch 02/21/21 03/15/21 Unknown Rx 0.2mg Patch] Active Medications: Generic Name Dose Route Start Last Admin Trade Name Freq PRN Reason Stop Dose Admin Acetaminophen 650 mg 03/15/21 19:31 03/17/21 20:29 Acetaminophen 325 Mg Tab PO 650 mg Q4H PRN Administration Pain MILD(1-3)/Fever >100.5/HULL Hydrocodone Bitart/Acetaminophen 7.5 mg 03/15/21 19:39 Hydrocodone/Acetaminophen 7.9-768cv-29me Oral Liqd PO Q6H PRN Pain , Severe (7-10) Albuterol 2.5 mg 03/15/21 19:31 Albuterol 2.5 Mg/3 Ml Nebu IH Q4HRT PRN Shortness Of Breath Calcium Acetate 667 mg 03/16/21 10:00 03/26/21 10:35 Calcium Acetate 667 Mg Cap PO Not Given DAILY THOMAS Cholecalciferol 2,000 unit 03/16/21 10:00 03/26/21 10:35 Cholecalciferol (Vit D3) 1000 Unit (25 Mcg) Tab PO Not Given QDAY THOMAS Clonidine HCl 0.3 mg 03/28/21 10:00 Clonidine Tts 0.3 Mg/24 Hr Patch TD Tu THOMAS Dextrose 50 ml 03/15/21 19:46 Dextrose 50% In Water (25gm) 50 Ml Syringe IV Q30MIN PRN Hypoglycemia Protocol Dicyclomine HCl 10 mg 03/25/21 14:00 03/26/21 10:44 Dicyclomine 10 Mg/5 Ml Oral Liqd PO 10 mg QID THOMAS Administration Famotidine 10 mg 03/15/21 22:00 03/26/21 10:44 Famotidine 20 Mg/2 Ml Inj IV 10 mg BID THOMAS Administration Heparin Sodium (Porcine) 3,200 unit 03/15/21 17:16 03/17/21 14:35 Heparin 10,000 Units/10 Ml Vial 40 unit/kg (3200 unit) 3,200 unit IV Administration Q6H PRN Anti-Xa Assay<0.1 units/ml Hydralazine HCl 10 mg 03/22/21 10:05 03/25/21 23:19 Hydralazine 20 Mg/1 Ml Inj IV 10 mg Q30MIN PRN Administration Hypertension Hydromorphone HCl 0.5 mg 03/15/21 19:31 Hydromorphone 1 Mg/1 Ml Inj IV Q3H PRN Pain , Severe (7-10) Sodium Chloride 100 mls @ 999 mls/hr 03/15/21 16:00 Nacl 0.9% IV [place] PRN Hypotension Heparin Sodium/Sodium Chloride 25,000 unit in 500 mls @ 23 mls/hr 03/16/21 07:00 03/26/21 09:51 Heparin/ 0.45% Nacl-25,000 Unit/500 Ml IV 1,400 units/hr TITR THOMAS 28 mls/hr Administration Protocol 1,150 UNITS/HR Micafungin Sodium 100 mg/ 100 mls @ 100 mls/hr 03/16/21 19:00 03/25/21 18:40 Sodium Chloride IV 100 mls/hr Q24H THOMAS Administration Protocol Dextrose/Sodium Chloride 1,000 mls @ 42 mls/hr 03/20/21 16:00 03/25/21 12:01 D5ns IV 42 mls/hr DIRECT THOMAS Administration Amino Acids/Electrolytes/Dextrose 1,800 mls @ 75 mls/hr 03/25/21 20:00 03/25/21 23:16 Tpn Adult IV 03/26/21 19:59 75 mls/hr DAILY@1999 THOMAS Administration Protocol Metronidazole 500 mg in 100 mls @ 100 mls/hr 03/25/21 14:00 03/26/21 06:09 Flagyl 500 Mg/100 Ml IV 100 mls/hr Q8H THOMAS Administration Protocol Amino Acids/Electrolytes/Dextrose 1,800 mls @ 75 mls/hr 03/26/21 20:00 Tpn Adult IV 03/27/21 19:59 DAILY@1999 [facility] Protocol Insulin Human Regular 0 units 03/15/21 20:00 03/26/21 07:55 Insulin Regular, Human 100 Units/1 Ml SUB-Q Not Given Q6H THOMAS Protocol Morphine Sulfate 2 mg 03/15/21 19:31 03/16/21 13:27 Morphine 2 Mg/1 Ml Inj IV 2 mg Q4H PRN Administration Pain, Moderate (4-6) Ondansetron HCl 4 mg 03/15/21 19:31 03/25/21 10:34 Ondansetron 4 Mg/2 Ml Inj IV 4 mg Q8H PRN Administration Nausea And Vomiting Scopolamine 1 each 03/16/21 10:00 03/25/21 11:43 Scopolamine Transdermal Patch 72 Hr TD 1 each Q3D THOMAS Administration Sodium Chloride 10 ml 03/15/21 22:00 03/26/21 10:35 Sodium Chloride 0.9% 10 Ml Flush Syringe IV 10 ml BID THOMAS Administration Sodium Chloride 10 ml 03/15/21 20:31 Sodium Chloride 0.9% 10 Ml Flush Syringe IV PRN PRN LINE FLUSH Triamcinolone Acetonide 1 applic 03/22/21 12:00 03/26/21 10:36 Triamcinolone 0.1% Cream 15 Gm TP Not Given DAILY THOMAS
--- NOTE | 2021-03-26 14:04 | Progress Note ---
Assessment and Plan Cultures: Blood culture 03/15/2021 growing Gwendolyn glabrata, Coag negative staph in multiple bottles 03/16/2021 urine culture: No growth 03/18/2021 blood culture: No growth Assessment: 61-year-old male with history of ESRD initially on PD, CHF, , Crohn's disease, CHF, gastroesophageal reflux disease, status post prolonged hospital complicated stay from 12/22/2020-02/21/2021 due to complicated small bowel obstruction with necrotic small bowel s/p small bowel resection and primary anastomosis, requiring right hemicolectomy on 01/03/2021, complicated with a Streptococcus bovis and Prevotella bacteremia on 12/22/2020, complicated with perforated anastomosis, s/p multiple surgeries readmitted on 03/15/2021 secondary to fever, hypoxia and altered mental status/somnolence: #Severe sepsis: likely secondary to candidemia. #Candidemia: present in several bottles of blood cultures. Likely due to intra-abdominal collection versus central line infection, patient had dialysis catheter as well as tunneled line, is on TPN. TTE without obvious vegetations on the valves. Lines removed 03/20/2021. #Coag negative staph bacteremia: Possibly due to central line infection. #Pancreatic pseudocyst vs intra-abdominal collection: CT with 6.6 x 3.3 x 4.8 cm pseudocyst could be source of candidemia. CRP 14.9. Lipase normal. #Complicated small bowel obstruction: with necrotic small bowel s/p small bowel resection and primary anastomosis, requiring right hemicolectomy on 01/03/2021, and multiple other surgeries and abx. #Acute pulmonary embolism: On anticoagulation. #Elevated LFTs: Likely secondary to sepsis/pancreatic pseudocyst more than acute hepatitis B infection. Patient noted to have hepatitis B core IgM positive ? False positive versus acute hepatitis B less likely. #ESRD on hemodialysis. Renally adjust antibiotics. #Acute encephalopathy: Likely secondary to sepsis. Improving. Recommendations: -Continue IV micafungin till Gwendolyn glabrata susceptibilities are available. Total treatment of at least 14 days from negative cultures. May be able to do high dose fluconazole if susceptible. End date: 03/30/2021 -continue renally dosed IV vancomycin added due to coag negative staph bacteremia x 7 days, ending 03/27/2021. -Follow-up hepatitis B DNA PCR -due to TPN, he remains at risk of recurrent line infections Yesika Denny MD, FACP [facility] ([facility]) O: [phone] F: [phone] Subjective Date of service: 03/26/21 Principal diagnosis: Hypoxia, fever Interval history: Patient is afebrile. No complaints. Lying in bed. Objective - Exam Narrative Exam: Physical Exam: Constitutional: Alert, no distress Head, Ears, Nose: Normocephalic, atraumatic. External ears, nose normal Eyes: Conjunctivae/corneas clear. No icterus. No ptosis. Neck: Supple, no meningeal signs Cardiovascular: S1, S2 normal. Respiratory: Good air entry, clear to auscultation bilaterally GI: Soft, non-tender; bowel sounds normal. No peritoneal signs. Drain + Musculoskeletal: No pedal edema, no cyanosis. Right neck region dressings + . Left neck with new lines Skin: No rash or abscess Hem/Lymphatic: No palpable cervical or supraclavicular nodes. No lymphangitis Psych: no agitation Neurological: Awake, alert, answering questions - Constitutional Vitals: Vital Signs Temp Pulse Resp BP Pulse Ox 98.6 F 71 18 173/85 95 03/26/21 07:46 03/26/21 07:46 03/26/21 07:46 03/26/21 07:46 03/26/21 10:00 Temperature -Last 24 Hours Temperature 98.6 F Temperature 98.6 F Temperature 99.0 F Temperature 97.9 F - Labs CBC & Chem 7: 03/25/21 11:45 03/26/21 07:04 Labs: Abnormal lab results 03/23/21 03/25/21 03/26/21 Range/Units 14:17 23:44 07:04 Heparin Anti-Xa Level < 0.10 L (0.3-0.7) U.I./ml BUN 29 H (9-20) mg/dL Creatinine 10.0 H (0.8-1.3) mg/dL Glucose 104 H (75-100) mg/dL POC Glucose (70-105) mg/dL Phosphorus 4.90 H (2.5-4.5) mg/dL Alkaline Phosphatase 191 H (35-129) units/L Albumin 3.5 L (3.9-5) g/dL Crossmatch See Detail 03/26/21 03/26/21 03/26/21 Range/Units 07:04 07:44 10:43 Heparin Anti-Xa Level 0.13 L (0.3-0.7) U.I./ml BUN (9-20) mg/dL Creatinine (0.8-1.3) mg/dL Glucose (75-100) mg/dL POC Glucose 110 H 115 H (70-105) mg/dL Phosphorus (2.5-4.5) mg/dL Alkaline Phosphatase (35-129) units/L Albumin (3.9-5) g/dL Crossmatch
[2021-03-26] MEDS: D5W/0.9% NACL 1,000 ML IV SCH (14:17)
[2021-03-26] MEDS ORDERED: TOTAL PARENTERAL NUTRITION 1,800 ML IV SCH (20:00)
[2021-03-26] MEDS: MICAFUNGIN 100 MG in SODIUM CHLORIDE 0.9% 100 ML IV SCH (21:23)
[2021-03-27] MEDS: INSULIN REGULAR, HUMAN 100 UNITS/1 ML SUB-Q SCH ×3 (02:28→23:12)
[2021-03-27] MEDS: metroNIDAZOLE/NS 500 MG/100 ML 500 MG/100 ML BAG IV SCH ×3 (06:07→21:51)
[2021-03-27] MEDS: HEPARIN/ 0.45% NACL DRIP 25,000 UNIT/500 ML BAG IV SCH (07:22)
--- NOTE | 2021-03-27 08:19 | Progress Note ---
Assessment and Plan Assessment and plan: 60-year-old male resident of [facility] with past history of congestive heart failure, hypertension, end-stage renal disease and Crohn's disease with extensive history of multiple abdominal surgeries for Small bowel obstruction/necrotic bowel, controlled anastomotic leak that is transitioning to a fistula presents to the ED with a chief complaint of fever hypoxemia acute respiratory failure. Patient received CT scan in the a.m. for work-up of hypoxemia and was found to have right sided pulmonary embolism. Patient was admitted placed on heparin drip. Patient was also complaining of some abdominal pain of which a CT scan of the abdomen and pelvis showed a 6 cm fluid collection between the stomach and the pancreas suggestive of a pancreatic pseudocyst. - Patient Problems (1) Elevated liver transaminase level Current Visit: Yes Status: Resolved Plan to address problem: Resolved. (2) Altered mental status Current Visit: Yes Status: Acute Plan to address problem: Encephalopathy has resolved. Patient is alert oriented x3. Angry and agitated today secondary to prolonged hospital stay and wants to go home. (3) Fever/she Current Visit: Yes Status: Acute Plan to address problem: Remains afebrile. (4) Pulmonary embolus Current Visit: Yes Status: Acute Plan to address problem: Patient pulmonary embolus. He has been refusing heparin. Now today he states that he is okay to use heparin. Plan would be upon discharge start patient on Eliquis for treatment for PE. He can swallow the pill. (5) CHF (congestive heart failure) Current Visit: No Status: Acute Qualifiers: Heart failure chronicity: chronic Plan to address problem: Fairly well compensated at this time. (6) ESRD (end stage renal disease) Current Visit: No Status: Acute Plan to address problem: Patient to received Vas-Cath placed Plan is to place a tunneled hemodialysis catheter and tunnel triple-lumen catheter so patient can receive dialysis and TPN on Saturday (7) Anemia Current Visit: Yes Status: Acute Plan to address problem: Transfuse for H&H less than 7. (8) Hepatitis B core antibody positive Current Visit: Yes Status: Acute Plan to address problem: Supportive care Gentle fluid hydration since patient is on hemodialysis. ID consult (9) Ischemic bowel disease Current Visit: Yes Status: Acute Plan to address problem: Patient with Crohn's disease. Has some abdominal pain when patient tries to eat and takes TPN that is why she is refusing TPN. (10) Severe Sepsis (11) Full code status Current Visit: No Status: Acute Daily clinical course: 03/16/21: Hemoglobin 6.0 this morning, continue to transfuse. Monitor H&H carefully while patient on heparin drip. Noted general surgery and IR recommendation. Will consult GI for pancreatic pseudocyst. Continue to follow clinically with supportive care. Blood culture growing yeast we'll also add fluconazole. 03/17/21: Patient receiving hemodialysis, BP appears to be stable, continue empiric antibiotic. Follow ID and GI recommendation. Per general surgery no intervention required for pancreatic pseudocyst. If patient condition return to BX may need to transfer to tertiary center for possible drainage. 03/18/21: Continue empiric antibiotics, hemodialysis per nephrology. Continue TPN. Patient H&H remained stable, continue to follow BMP. Transfer out of IM to telemetry. 03/19/21: Patient transferred to telemetry today. H&H remained stable. White count slightly elevated, will follow CBC. Repeat blood culture from 03/18/21 having no growth. Continue empiric antibiotics per ID and TPN. Discharge planning per general surgery and ID recommendation. Patient intermittently refusing care; counseled extensively he verbalized understanding and promised to follow hospital protocol and MD recommendations 10/21/20: Removed right-sided PermCath today per vascular as patient blood culture initially was positive for yeast. Continue empiric antibiotics per ID recommendation. Dialysis per nephrology. Continue TPN and follow BMP. Per ID: Due to fungemia, will need blood cultures to be negative at 5 days (03/23/2021) before new tunneled lines can be placed (Ok to place temporary ones if needed). 10/22/20; patient appears clinically stable, continue heparin drip and TPN. Patient last dialysis was on Saturday. Repeat blood culture need to be neg till for placing new PermCath for dialysis. Continue to monitor off dialysis. Final blood culture data and sensitivity is pending. 10/23/20: continue heparin drip and TPN. Patient last dialysis was on Saturday. Repeat blood culture need to be neg till for placing new PermCath for dialysis. Final blood culture data and sensitivity is pending. Planned to place permcath tomorrow by vascular if repeat blood cx remains neg. 03/23/2021. Patient very agitated today. This morning has refused heparin. Has refused all meds at this time. Unable to tell why. Not answering the question when I asked what can I do for you to assist you with your care. Patient is going to have hemodialysis catheter placed today. Patient has been 5 days without any goal for blood cultures. Multiple episodes in the past with bacteremia and fungemia. 03/24/2021 patient remains agitated today. Was dragging tube along the floor. Refused heparin again. Continue refuse medications not answering me at this time. Not as belligerent as yesterday but still noncompliant with treatment at this time. Discussion with case management/daughter. Agreed to go home. Patient will need PICC line for TPN. Will order PICC line anticipated discharge in a.m. Patient's much more stable today. Good conversation. Patient states he was just frustrated. Patient is excepting heparin now. Should be able to change to Eliquis upon discharge patient is not having any procedures. Plan will be to discharge home in a.m. after hemodialysis catheter and triple-lumen has been placed. Patient also has abdominal spasms and pain today. Patient has been eating and taking TPN when he does this he has abdominal pain and diarrhea. We will try short trial of Bentyl to see if this will help with abdominal spasms. 03/26: Although sometimes he refuses his TPN he aspirates very connected and is currently going. Still has some abdominal pain at his drain site. Could not ascertain if he is eating or not while waiting for nurse to review records and also discussed with the patient but he was not able to talk to me. We will continue to reevaluate. Continue drain management per surgeon. 03/27: Patient clinical stable, Permcath placement today, -ID following - Micafungin IV per ID w/ possible transition to high dose fluconazole pending sensitivites; IV vanc with HD to end today. Awaiting final input from ID and surgery in respect to discharge, still not clear if patient is tolerating any PO, nursing team to further evaluate. History Interval history: Patient seen and examined, went for tunnel catheter today. Hospitalist Physical - Physical exam Narrative exam: General appearance: Present: no acute distress, - EENT Eyes: PERRL, EOM intact - Respiratory Respiratory effort: normal - Cardiovascular Rhythm: regular Heart Sounds: Present: S1 & S2. Absent: gallop, rub Extremities: pulses intact, No edema, normal color, Full ROM - Gastrointestinal General gastrointestinal: Present: soft, tender, non-distended, hypoactive bowel sounds - Musculoskeletal Musculoskeletal: 1, strength equal bilaterally - Neurologic Neurologic: moves all extremities - Psychiatric Psychiatric: memory intact, appropriate mood/affect, intact judgment & insight - Constitutional Vitals: Temp Pulse Resp BP Pulse Ox 98.0 F 77 18 195/108 100 03/27/21 06:37 03/27/21 05:08 03/26/21 07:46 03/27/21 05:08 03/27/21 05:08 General appearance: Present: no acute distress, other (Agitated) Results - Labs CBC & Chem 7: 03/25/21 11:45 03/26/21 07:04 Labs: Laboratory Last Values WBC 11.9 K/mm3 (4.5-11.0) H 03/25/21 11:45 RBC 2.30 M/mm3 (3.65-5.03) L 03/25/21 11:45 Hgb 7.0 gm/dl (11.8-15.2) L 03/25/21 11:45 Hct 21.4 % (35.5-45.6) L 03/25/21 11:45 MCV 93 fl (84-94) 03/25/21 11:45 MCH 30 pg (28-32) 03/25/21 11:45 MCHC 32 % (32-34) 03/25/21 11:45 RDW 18.2 % (13.2-15.2) H 03/25/21 11:45 Plt Count 291 K/mm3 (140-440) 03/25/21 11:45 Lymph % (Auto) 15.5 % (13.4-35.0) 03/23/21 05:20 [place] % (Auto) 7.4 % (0.0-7.3) H 03/23/21 05:20 Eos % (Auto) 4.0 % (0.0-4.3) 03/23/21 05:20 Baso % (Auto) 0.8 % (0.0-1.8) 03/23/21 05:20 Lymph # (Auto) 1.0 K/mm3 (1.2-5.4) L 03/23/21 05:20 [place] # (Auto) 0.5 K/mm3 (0.0-0.8) 03/23/21 05:20 Eos # (Auto) 0.3 K/mm3 (0.0-0.4) 03/23/21 05:20 Baso # (Auto) 0.1 K/mm3 (0.0-0.1) 03/23/21 05:20 Add Manual Diff Complete 03/17/21 05:57 Total Counted 100 03/17/21 05:57 Seg Neutrophils % 72.3 % (40.0-70.0) H 03/23/21 05:20 Seg Neuts % (Manual) 75.0 % (40.0-70.0) H 03/17/21 05:57 Band Neutrophils % 2.0 % 03/17/21 05:57 Lymphocytes % (Manual) 12.0 % (13.4-35.0) L 03/17/21 05:57 Reactive Lymphs % (Man) 1.0 % 03/15/21 11:23 Monocytes % (Manual) 5.0 % (0.0-7.3) 03/17/21 05:57 Eosinophils % (Manual) 6.0 % (0.0-4.3) H 03/17/21 05:57 Basophils % (Manual) 1.0 % (0.0-1.8) 03/16/21 07:45 Nucleated RBC % Not Reportable 03/17/21 05:57 Seg Neutrophils # 4.8 K/mm3 (1.8-7.7) 03/23/21 05:20 Seg Neutrophils # Man 6.5 K/mm3 (1.8-7.7) 03/17/21 05:57 Band Neutrophils # 0.2 K/mm3 03/17/21 05:57 Lymphocytes # (Manual) 1.0 K/mm3 (1.2-5.4) L 03/17/21 05:57 Abs React Lymphs (Man) 0.0 K/mm3 03/17/21 05:57 Monocytes # (Manual) 0.4 K/mm3 (0.0-0.8) 03/17/21 05:57 Eosinophils # (Manual) 0.5 K/mm3 (0.0-0.4) H 03/17/21 05:57 Basophils # (Manual) 0.0 K/mm3 (0.0-0.1) 03/17/21 05:57 Metamyelocytes # 0.0 K/mm3 03/17/21 05:57 Myelocytes # 0.0 K/mm3 03/17/21 05:57 Promyelocytes # 0.0 K/mm3 03/17/21 05:57 Blast Cells # 0.0 K/mm3 03/17/21 05:57 WBC Morphology Not Reportable 03/17/21 05:57 Hypersegmented Neuts Not Reportable 03/17/21 05:57 Hyposegmented Neuts Not Reportable 03/17/21 05:57 Hypogranular Neuts Not Reportable 03/17/21 05:57 Smudge Cells Not Reportable 03/17/21 05:57 Toxic Granulation Not Reportable 03/17/21 05:57 Toxic Vacuolation Not Reportable 03/17/21 05:57 Dohle Bodies Not Reportable 03/17/21 05:57 Pelger-Huet Anomaly Not Reportable 03/17/21 05:57 Lamar Rods Not Reportable 03/17/21 05:57 Platelet Estimate Consistent w auto 03/17/21 05:57 Clumped Platelets Not Reportable 03/17/21 05:57 Plt Clumps, EDTA Not Reportable 03/17/21 05:57 Large Platelets Not Reportable 03/17/21 05:57 Giant Platelets Rare 03/17/21 05:57 Platelet Satelliting Not Reportable 03/17/21 05:57 Plt Morphology Comment Not Reportable 03/17/21 05:57 RBC Morphology Not Reportable 03/17/21 05:57 Dimorphic RBCs Not Reportable 03/17/21 05:57 Polychromasia Not Reportable 03/17/21 05:57 Hypochromasia Few 03/17/21 05:57 Poikilocytosis Not Reportable 03/17/21 05:57 Anisocytosis Few 03/17/21 05:57 Microcytosis Not Reportable 03/17/21 05:57 Macrocytosis Not Reportable 03/17/21 05:57 Spherocytes Not Reportable 03/17/21 05:57 Pappenheimer Bodies Not Reportable 03/17/21 05:57 Sickle Cells Not Reportable 03/17/21 05:57 Target Cells Not Reportable 03/17/21 05:57 Tear Drop Cells Not Reportable 03/17/21 05:57 Ovalocytes Not Reportable 03/17/21 05:57 Helmet Cells Not Reportable 03/17/21 05:57 Washburn-Marston Bodies Not Reportable 03/17/21 05:57 Osborn Rings Not Reportable 03/17/21 05:57 Jenny Cells Not Reportable 03/17/21 05:57 Bite Cells Not Reportable 03/17/21 05:57 Crenated Cell Not Reportable 03/17/21 05:57 Elliptocytes Not Reportable 03/17/21 05:57 Acanthocytes (Spur) Not Reportable 03/17/21 05:57 Rouleaux Not Reportable 03/17/21 05:57 Hemoglobin C Crystals Not Reportable 03/17/21 05:57 Schistocytes Not Reportable 03/17/21 05:57 Malaria parasites Not Reportable 03/17/21 05:57 Lucas Bodies Not Reportable 03/17/21 05:57 Hem Pathologist Commnt No 03/17/21 05:57 PT 14.4 Sec. (12.2-14.9) 03/15/21 23:21 INR 1.07 (0.87-1.13) 03/15/21 23:21 APTT 29.7 Sec. (24.2-36.6) 03/15/21 23:21 Heparin Anti-Xa Level 0.22 U.I./ml (0.3-0.7) L 03/27/21 00:12 ABG pH 7.367 (7.320-7.450) 03/15/21 12:54 POC ABG pCO2 28.5 mmHg (32.0-48.0) L 03/15/21 12:54 POC ABG pO2 62.8 mmHg (83-108) L 03/15/21 12:54 POC ABG HCO3 16.0 03/15/21 12:54 ABG O2 Saturation 89.9 (0-100) 03/15/21 12:54 POC ABG Base Excess -8.5 03/15/21 12:54 ABG Hemoglobin 6.3 (12.0-17.5) L 03/15/21 12:54 ABG Oxyhemoglobin 87.9 (94-98) L 03/15/21 12:54 ABG Methemoglobin 0.3 (0.0-1.5) 03/15/21 12:54 ABG Sodium 127.9 mmol/L (136.0-145.0) L 03/15/21 12:54 ABG Potassium 4.3 mmol/L (3.40-4.50) 03/15/21 12:54 ABG Chloride 100.0 mmol/L (98-107) 03/15/21 12:54 ABG Glucose 98 mg/dL (65-95) H 03/15/21 12:54 VBG pH 7.344 (7.320-7.420) 03/15/21 11:23 Carboxyhemoglobin 1.9 (0.5-1.5) H 03/15/21 12:54 FiO2 % 21.0 03/15/21 12:54 Sodium 142 mmol/L (137-145) 03/26/21 07:04 Potassium 3.7 mmol/L (3.6-5.0) 03/26/21 07:04 Chloride 105.2 mmol/L (98-107) 03/26/21 07:04 Carbon Dioxide 22 mmol/L (22-30) 03/26/21 07:04 Anion Gap 19 mmol/L 03/26/21 07:04 BUN 29 mg/dL (9-20) H 03/26/21 07:04 Creatinine 10.0 mg/dL (0.8-1.3) H 03/26/21 07:04 Estimated GFR 6 ml/min 03/26/21 07:04 BUN/Creatinine Ratio 3 % 03/26/21 07:04 Glucose 104 mg/dL (75-100) H 03/26/21 07:04 POC Glucose 108 mg/dL (70-105) H 03/27/21 02:22 Lactic Acid 0.80 mmol/L (0.7-2.0) 03/15/21 15:55 Calcium 9.1 mg/dL (8.4-10.2) 03/26/21 07:04 Phosphorus 4.90 mg/dL (2.5-4.5) H 03/26/21 07:04 Magnesium 1.90 mg/dL (1.7-2.3) 03/26/21 07:04 Total Bilirubin 0.90 mg/dL (0.1-1.2) 03/26/21 07:04 Direct Bilirubin 0.4 mg/dL (0-0.2) H 03/18/21 06:08 Indirect Bilirubin 0.9 mg/dL 03/18/21 06:08 AST 21 units/L (5-40) 03/26/21 07:04 ALT 34 units/L (7-56) 03/26/21 07:04 Alkaline Phosphatase 191 units/L (35-129) H 03/26/21 07:04 C-Reactive Protein 14.90 mg/dL (0.00-1.30) H 03/16/21 18:45 Total Protein 6.5 g/dL (6.3-8.2) 03/26/21 07:04 Albumin 3.5 g/dL (3.9-5) L 03/26/21 07:04 Albumin/Globulin Ratio 1.2 % 03/26/21 07:04 Triglycerides 76 mg/dL (2-149) 03/21/21 03:23 Lipase 41 units/L (13-60) 03/16/21 18:45 Arterial Blood Glucose 98 mg/dL (65-95) H 03/15/21 12:54 Urine Color Bernarda (Yellow) 03/16/21 14:45 Urine Turbidity Hazy (Clear) 03/16/21 14:45 Urine pH 5.0 (5.0-7.0) 03/16/21 14:45 Ur Specific [place] 1.015 (1.003-1.030) 03/16/21 14:45 Urine Protein >500 mg/dL (Negative) 03/16/21 14:45 Urine Glucose (UA) Neg mg/dL (Negative) 03/16/21 14:45 Urine Ketones Neg mg/dL (Negative) 03/16/21 14:45 Urine Blood Lg (Negative) 03/16/21 14:45 Urine Nitrite Neg (Negative) 03/16/21 14:45 Urine Bilirubin Neg (Negative) 03/16/21 14:45 Urine Urobilinogen < 2.0 mg/dL (<2.0) 03/16/21 14:45 Ur Leukocyte Esterase Neg (Negative) 03/16/21 14:45 Urine WBC (Auto) 8.0 /HPF (0.0-6.0) H 03/16/21 14:45 Urine RBC (Auto) 3.0 /HPF (0.0-6.0) 03/16/21 14:45 U Epithel Cells (Auto) 1.0 /HPF (0-13.0) 03/16/21 14:45 Urine Mucus Few /HPF 03/16/21 14:45 Nasal Screen MRSA (PCR) Negative (Negative) 03/16/21 14:37 Random Vancomycin 13.6 ug/mL (0-40.0) 03/25/21 05:35 Coronavirus (PCR) Negative (Negative) 03/16/21 08:45 Hepatitis A IgM Ab Non-reactive (NonReactive) 03/15/21 15:55 Hep Bs Antigen Non-reactive (Negative) 03/15/21 15:55 Hep B Core IgM Ab Reactive (NonReactive) A 03/15/21 15:55 Hepatitis C Antibody Non-reactive (NonReactive) 03/15/21 15:55 Blood Type A POSITIVE 03/23/21 14:17 Antibody Screen Negative 03/23/21 14:17 Crossmatch See Detail 03/23/21 14:17 Microbiology: Microbiology 03/15/21 11:23 Peripheral/Venous Blood Culture - Preliminary She [place] Staphylococcus Epidermidis 03/15/21 11:23 Peripheral/Venous Blood Culture - Preliminary She [place] Staphylococcus Epidermidis Jeffery/IV: Voiding Method Toilet Active Medications - Current Medications Current Medications: Generic Name Dose Route Start Last Admin Trade Name Freq PRN Reason Stop Dose Admin Acetaminophen 650 mg 03/15/21 19:31 03/17/21 20:29 Acetaminophen 325 Mg Tab PO 650 mg Q4H PRN Administration Pain MILD(1-3)/Fever >100.5/HULL Hydrocodone Bitart/Acetaminophen 7.5 mg 03/15/21 19:39 Hydrocodone/Acetaminophen [id number] Oral Liqd PO Q6H PRN Pain , Severe (7-10) Albuterol 2.5 mg 03/15/21 19:31 Albuterol 2.5 Mg/3 Ml Nebu IH Q4HRT PRN Shortness Of Breath Calcium Acetate 667 mg 03/16/21 10:00 03/26/21 10:35 Calcium Acetate 667 Mg Cap PO Not Given DAILY THOMAS Cholecalciferol 2,000 unit 03/16/21 10:00 03/26/21 10:35 Cholecalciferol (Vit D3) 1000 Unit (25 Mcg) Tab PO Not Given QDAY THOMAS Clonidine HCl 0.3 mg 03/28/21 10:00 Clonidine Tts 0.3 Mg/24 Hr Patch TD Tu THOMAS Dextrose 50 ml 03/15/21 19:46 Dextrose 50% In Water (25gm) 50 Ml Syringe IV Q30MIN PRN Hypoglycemia Protocol Dicyclomine HCl 10 mg 03/25/21 14:00 03/26/21 22:36 Dicyclomine 10 Mg/5 Ml Oral Liqd PO 10 mg QID THOMAS Administration Famotidine 10 mg 03/15/21 22:00 03/26/21 22:38 Famotidine 20 Mg/2 Ml Inj IV 10 mg BID THOMAS Administration Heparin Sodium (Porcine) 3,200 unit 03/15/21 17:16 03/17/21 14:35 Heparin 10,000 Units/10 Ml Vial 40 unit/kg (3200 unit) 3,200 unit IV Administration Q6H PRN Anti-Xa Assay<0.1 units/ml Hydralazine HCl 10 mg 03/22/21 10:05 03/25/21 23:19 Hydralazine 20 Mg/1 Ml Inj IV 10 mg Q30MIN PRN Administration Hypertension Hydromorphone HCl 0.5 mg 03/15/21 19:31 Hydromorphone 1 Mg/1 Ml Inj IV Q3H PRN Pain , Severe (7-10) Sodium Chloride 100 mls @ 999 mls/hr 03/15/21 16:00 Nacl 0.9% IV RYLAND PRN Hypotension Heparin Sodium/Sodium Chloride 25,000 unit in 500 mls @ 23 mls/hr 03/16/21 07:00 03/27/21 07:22 Heparin/ 0.45% Nacl-25,000 Unit/500 Ml IV 1,600 units/hr TITR THOMAS 32 mls/hr Administration Protocol 1,150 UNITS/HR Micafungin Sodium 100 mg/ 100 mls @ 100 mls/hr 03/16/21 19:00 03/26/21 21:23 Sodium Chloride IV Not Given Q24H THOMAS Protocol Dextrose/Sodium Chloride 1,000 mls @ 42 mls/hr 03/20/21 16:00 03/26/21 14:17 D5ns IV 42 mls/hr DIRECT THOMAS Administration Metronidazole 500 mg in 100 mls @ 100 mls/hr 03/25/21 14:00 03/27/21 06:07 Flagyl 500 Mg/100 Ml IV 100 mls/hr Q8H THOMAS Administration Protocol Amino Acids/Electrolytes/Dextrose 1,800 mls @ 75 mls/hr 03/26/21 20:00 03/26/21 21:44 Tpn Adult IV 03/27/21 19:59 75 mls/hr DAILY@2000 THOMAS Administration Protocol Insulin Human Regular 0 units 03/15/21 20:00 03/27/21 02:28 Insulin Regular, Human 100 Units/1 Ml SUB-Q Not Given Q6H [facility] Protocol Morphine Sulfate 2 mg 03/15/21 19:31 03/16/21 13:27 Morphine 2 Mg/1 Ml Inj IV 2 mg Q4H PRN Administration Pain, Moderate (4-6) Ondansetron HCl 4 mg 03/15/21 19:31 03/25/21 10:34 Ondansetron 4 Mg/2 Ml Inj IV 4 mg Q8H PRN Administration Nausea And Vomiting Scopolamine 1 each 03/16/21 10:00 03/25/21 11:43 Scopolamine Transdermal Patch 72 Hr TD 1 each Q3D THOMAS Administration Sodium Chloride 10 ml 03/15/21 22:00 03/26/21 22:38 Sodium Chloride 0.9% 10 Ml Flush Syringe IV 10 ml BID THOMAS Administration Sodium Chloride 10 ml 03/15/21 20:31 Sodium Chloride 0.9% 10 Ml Flush Syringe IV PRN PRN LINE FLUSH Triamcinolone Acetonide 1 applic 03/22/21 12:00 03/26/21 10:36 Triamcinolone 0.1% Cream 15 Gm TP Not Given DAILY [facility] Nutrition/Malnutrition Assess - Dietary Evaluation Nutrition/Malnutrition Findings: Nutrition Notes Start: 03/16/21 11:46 Freq: Status: Active Protocol: Document 03/26/21 10:14 JUAN (Rec: 03/26/21 10:19 JUAN [id number]) Nutrition Notes Initial or Follow up Reassessment Current Diagnosis CKD (stage V CKD),Hypertension ,Heart Failure Other Pertinent Diagnosis AMS, Fever, Pulmonary embolus Current Diet cl liq diet Labs/Tests Phos 4.9 Pertinent Medications reviewed Height 5 ft 7 in Weight 72.6 kg [place] Body Weight (kg) 67.27 BMI 25.0 Weight Status Appropriate Subjective/Other Information Day 10 PPN. Pt accepted PPN bag last night. Percent of energy/protein needs met: 45%/57% Burn Absent Trauma Absent GI Symptoms Nausea,Diarrhea Current % PO Negligible Minimum of two criteria No Interpretation of Weight Loss (severe) >2% in 1 week #1 Nutrition Diagnosis Inadequate oral intake Diagnosis Progress(for reassessment Continues documentation) Is patient on ventilator? No Is Patient Ambulatory and/or Out of Bed No [facility] [phone] Calculation Used for Recommendations [facility] Additional Notes Pro needs >1.2g/kg: >87g/day Fluid needs 1-1.5L/day Nutrition Intervention Change Diet Order: Diet advancement when medically feasible Nutrition Support: PPN at 75 ml/hr. Osm 889 mosm MVI Kcal 812 Protein (gm) 50 Carbohydrates (gm) 180 Fat (gm) 0 Fluid (mL) 1,800 Fiber (gm) 0 Goal #1 Meet needs as best as possible via TPN Goal #2 Diet advancement Anticipated Discharge Needs: Unable to identify at this time Follow-Up By: 03/27/21 Additional Comments F/u: PPN
--- NOTE | 2021-03-27 09:36 | Progress Note ---
Assessment and Plan Assessment * End-stage renal disease on hemodialysis * Sepsis * Candidemia --Permcath removal - March 20, 2021 * Hypertension * Anemia secondary to ESRD * Secondary hyperparathyroidism Recommendations * Continue HD MWF, due today * UF as tolerated * Anticipate Permcath reinsertion on Saturday, appreciate vascular * Surgery recommendations noted * Transfuse pRBC prn * ID following - Micafungin IV per ID w/ possible transition to high dose fluconazole pending sensitivites; IV vanc with HD to end today * Epogen TIW prn * Continue antiHTN medications Subjective Date of service: 03/27/21 Principal diagnosis: Hypoxia, fever Interval history: No issues noted this AM, seen upon starting HD Objective - Exam Narrative Exam: General appearance: well-developed, well-nourished EENT: ATNC Gastrointestinal: distended Integumentary: no rash, warm and dry Neurologic: no focal deficit, alert and oriented x3 Psychiatric: cooperative Access: CVC RIJ C/D/I - Vital Signs Vital signs: Vital Signs - 12hr 03/26/21 03/27/21 03/27/21 22:00 05:08 06:37 Temperature 98.0 F Pulse Rate 77 Blood Pressure 195/108 O2 Sat by Pulse 95 100 Oximetry - Lab 03/25/21 11:45 03/26/21 07:04 Most recent lab results ABG pH 7.367 (7.320-7.450) 03/15/21 12:54 ABG O2 Saturation 89.9 (0-100) 03/15/21 12:54 Calcium 9.1 mg/dL (8.4-10.2) 03/26/21 07:04 Phosphorus 4.90 mg/dL (2.5-4.5) H 03/26/21 07:04 Magnesium 1.90 mg/dL (1.7-2.3) 03/26/21 07:04 Medications & Allergies - Medications Allergies/Adverse Reactions: Allergies No Known Allergies Allergy (Verified 06/09/20 15:27) Home Medications: Home Medications Medication Instructions Recorded Confirmed Last Taken Type Albuterol Mdi (or & Nicu Only) 2 puff IH QID PRN #1 inhalation 04/01/17 03/15/21 10/31/20 09:00 Rx [ProAir HFA Inhaler] Calcium Acetate 667 mg PO DAILY 04/20/20 03/15/21 10/31/20 09:00 History Centrum Men's Tablet 1 tab PO DAILY 04/20/20 03/15/21 10/31/20 09:00 History Cinacalcet 30 mg PO DAILY 04/20/20 03/15/21 10/31/20 09:00 History Dialyvite with Zinc Tablet 1 tab PO DAILY 04/20/20 03/15/21 10/31/20 09:00 History Magnesium 250 mg PO BID 04/20/20 03/15/21 10/31/20 17:00 History Triamcinolone 0.1% 1 1000units TRANSDERMA DAILY 04/20/20 03/15/21 10/31/20 09:00 History Vit B12/Folic Acid/B6/Aa No.15 1,000 mg PO DAILY 04/20/20 03/15/21 10/31/20 09:00 History amLODIPine 10 mg PO DAILY 06/09/20 03/15/21 10/31/20 09:00 History AtorvaSTATin 40 mg PO HS 11/01/20 03/15/21 10/31/20 21:00 History Benadryl 25 mg PO HS 11/01/20 03/15/21 10/31/20 21:00 History Diclofenac 1 applic TRANSDERMA QID 11/01/20 03/15/21 10/31/20 19:00 History Vitamin D3 2,000 units PO QDAY 11/01/20 03/15/21 10/31/20 09:00 History carvediloL 12.5 mg PO DAILY 11/01/20 03/15/21 10/31/20 09:00 History hydrALAZINE 100 mg PO TID 11/01/20 03/15/21 10/31/20 19:00 History Fluticasone Propionate 1 spray INTRANASAL DAILY #1 02/21/21 03/15/21 Unknown Rx HYDROcodone/ACETAMINOPHEN 15 ml PO Q6H PRN #150 ml 02/21/21 03/15/21 Unknown Rx [Hydrocodon-Acetamin 7.5-325/15] Insulin Glargine [Lantus VIAL] 5 units SUB-Q QHS #1 units 02/21/21 03/15/21 Unknown Rx Lispro Insulin [HumaLOG] See Protocol SUB-Q Q6HR #1 vial 02/21/21 03/15/21 Unknown Rx Scopolamine [Transderm-Scop] 1 each TD Q3D #10 patch 02/21/21 03/15/21 Unknown Rx cloNIDine-TTS PATCH [Catapres-Tts 0.2 mg TD We #30 patch 02/21/21 03/15/21 Unknown Rx 0.2mg Patch] Active Medications: Generic Name Dose Route Start Last Admin Trade Name Freq PRN Reason Stop Dose Admin Acetaminophen 650 mg 03/15/21 19:31 03/17/21 20:29 Acetaminophen 325 Mg Tab PO 650 mg Q4H PRN Administration Pain MILD(1-3)/Fever >100.5/HULL Hydrocodone Bitart/Acetaminophen 7.5 mg 03/15/21 19:39 Hydrocodone/Acetaminophen [id number] Oral Liqd PO Q6H PRN Pain , Severe (7-10) Albuterol 2.5 mg 03/15/21 19:31 Albuterol 2.5 Mg/3 Ml Nebu IH Q4HRT PRN Shortness Of Breath Calcium Acetate 667 mg 03/16/21 10:00 03/26/21 10:35 Calcium Acetate 667 Mg Cap PO Not Given DAILY THOMAS Cholecalciferol 2,000 unit 03/16/21 10:00 03/26/21 10:35 Cholecalciferol (Vit D3) 1000 Unit (25 Mcg) Tab PO Not Given QDAY THOMAS Clonidine HCl 0.3 mg 03/28/21 10:00 Clonidine Tts 0.3 Mg/24 Hr Patch TD Tu THOMAS Dextrose 50 ml 03/15/21 19:46 Dextrose 50% In Water (25gm) 50 Ml Syringe IV Q30MIN PRN Hypoglycemia Protocol Dicyclomine HCl 10 mg 03/25/21 14:00 03/26/21 22:36 Dicyclomine 10 Mg/5 Ml Oral Liqd PO 10 mg QID THOMAS Administration Famotidine 10 mg 03/15/21 22:00 03/26/21 22:38 Famotidine 20 Mg/2 Ml Inj IV 10 mg BID THOMAS Administration Heparin Sodium (Porcine) 3,200 unit 03/15/21 17:16 03/17/21 14:35 Heparin 10,000 Units/10 Ml Vial 40 unit/kg (3200 unit) 3,200 unit IV Administration Q6H PRN Anti-Xa Assay<0.1 units/ml Hydralazine HCl 10 mg 03/22/21 10:05 03/25/21 23:19 Hydralazine 20 Mg/1 Ml Inj IV 10 mg Q30MIN PRN Administration Hypertension Hydromorphone HCl 0.5 mg 03/15/21 19:31 Hydromorphone 1 Mg/1 Ml Inj IV Q3H PRN Pain , Severe (7-10) Sodium Chloride 100 mls @ 999 mls/hr 03/15/21 16:00 Nacl 0.9% IV RYLAND PRN Hypotension Heparin Sodium/Sodium Chloride 25,000 unit in 500 mls @ 23 mls/hr 03/16/21 07:00 03/27/21 07:22 Heparin/ 0.45% Nacl-25,000 Unit/500 Ml IV 1,600 units/hr TITR THOMAS 32 mls/hr Administration Protocol 1,150 UNITS/HR Micafungin Sodium 100 mg/ 100 mls @ 100 mls/hr 03/16/21 19:00 03/26/21 21:23 Sodium Chloride IV Not Given Q24H THOMAS Protocol Dextrose/Sodium Chloride 1,000 mls @ 42 mls/hr 03/20/21 16:00 03/26/21 14:17 D5ns IV 42 mls/hr DIRECT THOMAS Administration Metronidazole 500 mg in 100 mls @ 100 mls/hr 03/25/21 14:00 03/27/21 06:07 Flagyl 500 Mg/100 Ml IV 100 mls/hr Q8H THOMAS Administration Protocol Amino Acids/Electrolytes/Dextrose 1,800 mls @ 75 mls/hr 03/26/21 20:00 03/26/21 21:44 Tpn Adult IV 03/27/21 19:59 75 mls/hr DAILY@2000 PENDING SALE TO [facility] Administration Protocol Insulin Human Regular 0 units 03/15/21 20:00 03/27/21 02:28 Insulin Regular, Human 100 Units/1 Ml SUB-Q Not Given Q6H PENDING SALE TO [facility] Protocol Morphine Sulfate 2 mg 03/15/21 19:31 03/16/21 13:27 Morphine 2 Mg/1 Ml Inj IV 2 mg Q4H PRN Administration Pain, Moderate (4-6) Ondansetron HCl 4 mg 03/15/21 19:31 03/25/21 10:34 Ondansetron 4 Mg/2 Ml Inj IV 4 mg Q8H PRN Administration Nausea And Vomiting Scopolamine 1 each 03/16/21 10:00 03/25/21 11:43 Scopolamine Transdermal Patch 72 Hr TD 1 each Q3D THOMAS Administration Sodium Chloride 10 ml 03/15/21 22:00 03/26/21 22:38 Sodium Chloride 0.9% 10 Ml Flush Syringe IV 10 ml BID THOMAS Administration Sodium Chloride 10 ml 03/15/21 20:31 Sodium Chloride 0.9% 10 Ml Flush Syringe IV PRN PRN LINE FLUSH Triamcinolone Acetonide 1 applic 03/22/21 12:00 03/26/21 10:36 Triamcinolone 0.1% Cream 15 Gm TP Not Given DAILY THOMAS
[2021-03-27] MEDS ORDERED: HEPARIN/NS 5000 UNIT/500ML 500 ML IR ONE (10:33)
[2021-03-27] MEDS ORDERED: LIDOCAINE 1%/EPINEPHRINE 1:100,000 VIAL (20 ML) INFILTRATI ONE ×2 (10:33→11:10)
[2021-03-27] MEDS: MIDAZOLAM 2 MG/2 ML INJ ONE ×4 (10:47→11:21)
[2021-03-27] MEDS: fentaNYL 100 MCG/2 ML INJ ONE ×4 (10:47→11:21)
[2021-03-27] MEDS ORDERED: ceFAZolin/Water 2 GM/20 ML 2 GM/20 ML SYRINGE IV ONE (10:49)
[2021-03-27] MEDS ORDERED: hydrALAZINE 20 MG/1 ML INJ ONE ×2 (11:03→11:09)
[2021-03-27] MEDS: HEPARIN 10,000 UNITS/10 ML VIAL ONE ×2 (11:21→11:25)
--- NOTE | 2021-03-27 11:57 | Operative Report ---
Operative Report Operative Report: EXAM: 1. Ultrasound-guided puncture of the right internal jugular vein 2. Fluoroscopic-guided placement of a right internal jugular tunneled cuffed hemodialysis catheter. 3. Ultrasound-guided puncture of the right internal jugular vein 4. Fluoroscopic-guided placement of a right internal jugular tunneled cuffed small bore catheter. DATE: 03/27/2021 INDICATION: ESRD requiring hemodialysis access and enterocutaneous fistula requiring TPN MEDICATIONS: Please see nursing report for full details. DEVICES: 27 cm tip to cuff 15 Fr dual lumen hemodialysis catheter small bore dual lumen powerline FINISH SPECIALIST: LAXMI CHISHOLM MD CONTRAST: None PROCEDURE: The risks, benefits, and alternatives were discussed and informed consent was obtained. The patient was transported to the angiography suite in satisfactory/stable condition and was transported onto the angiography table. The necks were prepped and draped in a sterile fashion. The puncture site was anesthetized. Under sonographic guidance, the right internal jugular vein was punctured with a 21-gauge micropuncture needle and a 0.018 inch wire was advanced into the inferior vena cava. The micropuncture needle was exchanged for a transitional dilator and the wire was retracted into the right atrium to marilou intravascular distance. The wire and inner dilator were removed. 0.035 inch Amplatz wire was advanced through the transitional dilator into the inferior vena cava. A suitable exit site was identified on the patient's chest inferior and lateral to the venotomy. The site was anesthetized with local anesthetic and the track was anesthetized. Dermatotomy was made. The PermCath was attached to the tunneling device and tunneled between the dermatotomy to the venotomy. Over the 0.035 inch wire, serial dilatation was performed with ultimate placement of a peel-away sheath. The catheter was advanced through the peel-paul y sheath after the wire was removed and positioned centrally under fluoroscopic guidance. The peel-away sheath was removed. 4-0 Vicryl suture was used to close the venotomy and Dermabond was then applied. 2-0 Ethilon suture was used to secure the catheter at the dermatotomy. Sterile dressing and Biopatch applied. The catheter was charged with heparin 1000 units/mL of space. Under sonographic guidance, the right internal jugular vein was punctured with a second 21-gauge micropuncture needle and a 0.018 inch wire was advanced into the inferior vena cava. The micropuncture needle was exchanged for a transitional dilator and the wire was retracted into the right atrium to marilou intravascular distance. The wire and inner dilator were removed. A different 0.018 inch wire was advanced through the transitional dilator into the inferior vena cava. A suitable exit site was identified on the patient's chest inferior and lateral to the venotomy. The site was anesthetized with local anesthetic and the track was anesthetized. Dermatotomy was made. The small bore dual lumen tunneled catheter was attached to the tunneling device and tunneled between the dermatotomy to the venotomy. Over the 0.018 inch wire, serial dilatation was performed with ultimate placement of a peel-away sheath. The catheter was advanced through the peel- away sheath after the wire was removed and positioned centrally under fluoroscopic guidance. The peel-away sheath was removed. 4-0 Vicryl suture was used to close the venotomy and Dermabond was then applied. 2-0 Ethilon suture was used to secure the catheter at the dermatotomy. Sterile dressing and Biopatch applied. The catheter was charged with heparinized saline. The patient was transferred from the angiography suite back to the floor in stable condition. FINDINGS: 1. Excellent flow was obtained through the dialysis catheter with 20 mL syringes. 2. Excellent flow was obtained through the small bore tunneled catheter with 10 mL syringes. 3. The catheter tips are in the right atrium. IMPRESSION: 1. Successful ultrasound and fluoroscopically guided placement of a right internal jugular tunneled cuffed hemodialysis catheter. 2. Successful ultrasound and fluoroscopically guided placement of a right internal jugular tunneled cuffed small bore catheter.
--- NOTE | 2021-03-27 11:57 | Progress Note ---
Assessment and Plan Cultures: Blood culture 03/15/2021 growing Gwendolyn glabrata, Coag negative staph in multiple bottles 03/16/2021 urine culture: No growth 03/18/2021 blood culture: No growth Assessment: 61-year-old male with history of ESRD initially on PD, CHF, , Crohn's disease, CHF, gastroesophageal reflux disease, status post prolonged hospital complicated stay from 12/22/2020-02/21/2021 due to complicated small bowel obstruction with necrotic small bowel s/p small bowel resection and primary anastomosis, requiring right hemicolectomy on 01/03/2021, complicated with a Streptococcus bovis and Prevotella bacteremia on 12/22/2020, complicated with perforated anastomosis, s/p multiple surgeries readmitted on 03/15/2021 secondary to fever, hypoxia and altered mental status/somnolence: #Severe sepsis: likely secondary to candidemia. #Candidemia: present in several bottles of blood cultures. Likely due to intra- abdominal collection versus central line infection, patient had dialysis catheter as well as tunneled line, is on TPN. TTE without obvious vegetations on the valves. Lines removed 03/20/2021. #Coag negative staph bacteremia: Possibly due to central line infection. #Pancreatic pseudocyst vs intra-abdominal collection: CT with 6.6 x 3.3 x 4.8 cm pseudocyst could be source of candidemia. CRP 14.9. Lipase normal. #Complicated small bowel obstruction: with necrotic small bowel s/p small bowel resection and primary anastomosis, requiring right hemicolectomy on 01/03/2021, and multiple other surgeries and abx. #Acute pulmonary embolism: On anticoagulation. #Elevated LFTs: Likely secondary to sepsis/pancreatic pseudocyst more than acute hepatitis B infection. Patient noted to have hepatitis B core IgM positive ? False positive versus acute hepatitis B less likely. #ESRD on hemodialysis. Renally adjust antibiotics. #Acute encephalopathy: Likely secondary to sepsis. Improving. Recommendations: -Continue IV micafungin till Gwendolyn glabrata susceptibilities are available. Total treatment of at least 14 days from negative cultures. May be able to do high dose fluconazole if susceptible. End date: 03/30/2021 -continue renally dosed IV vancomycin added due to coag negative staph bacteremia x 7 days, ending 03/27/2021. -due to TPN, he remains at risk of recurrent line infections -Hepatitis B DNA negative Andre Redding MD [facility] ([facility]) O: [phone] F: [phone] Subjective Date of service: 03/27/21 Principal diagnosis: Hypoxia, fever Interval history: Afebrile, no acute changes. Objective - Exam Narrative Exam: Physical Exam: Constitutional: Alert, no distress Head, Ears, Nose: Normocephalic, atraumatic. External ears, nose normal Eyes: Conjunctivae/corneas clear. No icterus. Neck: Supple, no meningeal signs Cardiovascular: S1, S2 normal. Respiratory: Good air entry, clear to auscultation bilaterally GI: Soft, non-tender; bowel sounds normal. No peritoneal signs. Drain + Musculoskeletal: No pedal edema, no cyanosis. Right neck region dressings + . Left neck with new lines Skin: No rash or abscess Hem/Lymphatic: No palpable cervical or supraclavicular nodes. No lymphangitis Psych: no agitation Neurological: Awake, alert, answering questio - Constitutional Vitals: Vital Signs Temp Pulse Resp BP Pulse Ox 98.0 F 77 18 195/108 100 03/27/21 06:37 03/27/21 05:08 03/26/21 07:46 03/27/21 05:08 03/27/21 05:08 Temperature -Last 24 Hours Temperature 98.0 F - Labs CBC & Chem 7: 03/25/21 11:45 03/26/21 07:04 Labs: Abnormal lab results 03/23/21 03/26/21 03/27/21 Range/Units 14:17 16:04 00:12 Heparin Anti-Xa Level 0.10 L 0.22 L (0.3-0.7) U.I./ml POC Glucose (70-105) mg/dL Crossmatch See Detail 03/27/21 03/27/21 Range/Units 02:22 09:56 Heparin Anti-Xa Level (0.3-0.7) U.I./ml POC Glucose 108 H 107 H (70-105) mg/dL Crossmatch
[2021-03-27] MEDS: CALCIUM ACETATE 667 MG CAP PO SCH ×2 (18:28→18:45)
[2021-03-27] MEDS: CHOLECALCIFEROL (VIT D3) 1000 UNIT (25 mcg) TAB PO SCH (18:28)
[2021-03-27] MEDS: FAMOTIDINE 20 MG/2 ML INJ IV SCH ×2 (18:28→21:30)
[2021-03-27] MEDS: TRIAMCINOLONE 0.1% CREAM 15 GM TP SCH (18:28)
[2021-03-27] MEDS: DICYCLOMINE 10 MG/5 ML ORAL LIQD PO SCH ×3 (18:29→21:31)
[2021-03-27] MEDS: D5W/0.9% NACL 1,000 ML IV SCH (18:30)
[2021-03-27] MEDS: MICAFUNGIN 100 MG in SODIUM CHLORIDE 0.9% 100 ML IV SCH (18:34)
[2021-03-27 18:45] LABS: Hematocrit 21.9 % (35.5-45.6); Hemoglobin 7.4 gm/dl (11.8-15.2)
[2021-03-27] MEDS ORDERED: VANCOMYCIN/NS 1 GM/250 ML 1 GM/250 ML BAG IV ONE (20:00)
[2021-03-27] MEDS ORDERED: TOTAL PARENTERAL NUTRITION 1,800 ML IV SCH (20:00)
[2021-03-27] MEDS ORDERED: FAT EMULSIONS 20% 250 ML IV SCH (20:00)
[2021-03-28] MEDS: metroNIDAZOLE/NS 500 MG/100 ML 500 MG/100 ML BAG IV SCH ×3 (05:41→22:45)
[2021-03-28] MEDS: INSULIN REGULAR, HUMAN 100 UNITS/1 ML SUB-Q SCH ×2 (08:27→20:00)
[2021-03-28] MEDS ORDERED: cloNIDine TTS 0.3 MG/24 HR PATCH TD SCH (10:00)
[2021-03-28] MEDS: CALCIUM ACETATE 667 MG CAP PO SCH (10:09)
[2021-03-28] MEDS: DICYCLOMINE 10 MG/5 ML ORAL LIQD PO SCH ×3 (10:09→22:00)
[2021-03-28] MEDS: CHOLECALCIFEROL (VIT D3) 1000 UNIT (25 mcg) TAB PO SCH (10:10)
--- NOTE | 2021-03-28 10:14 | Progress Note ---
Assessment and Plan Assessment * End-stage renal disease on hemodialysis * Sepsis * Candidemia --Permcath removal - March 20, 2021 * Hypertension * Anemia secondary to ESRD * Secondary hyperparathyroidism Recommendations * Continue HD MWF, due tomorrow * UF as tolerated * Anticipate Permcath reinsertion on Saturday, appreciate vascular * Surgery recommendations noted * Transfuse pRBC prn * ID following - Micafungin IV per ID w/ possible transition to high dose flucon azole pending sensitivites; IV vanc with HD now completeed * Epogen TIW prn * Continue antiHTN medications Subjective Date of service: 03/28/21 Principal diagnosis: Hypoxia, fever Interval history: No issues noted this AM, standing with nursing support Objective - Exam Narrative Exam: General appearance: well-developed, well-nourished EENT: ATNC Gastrointestinal: distended Integumentary: no rash, warm and dry Neurologic: no focal deficit, alert and oriented x3 Psychiatric: cooperative Access: CVC RIJ C/D/I - Vital Signs Vital signs: Vital Signs - 12hr 03/28/21 03/28/21 03/28/21 00:29 00:33 04:10 Temperature 99.2 F 98.6 F Pulse Rate 90 79 Respiratory 20 20 Rate Blood Pressure 173/92 Blood Pressure 163/85 [Right] O2 Sat by Pulse 96 95 Oximetry 03/28/21 08:33 Temperature 98.4 F Pulse Rate 89 Respiratory 18 Rate Blood Pressure 168/97 Blood Pressure [Right] O2 Sat by Pulse 93 Oximetry - Lab 03/27/21 18:18 03/26/21 07:04 Most recent lab results ABG pH 7.367 (7.320-7.450) 03/15/21 12:54 ABG O2 Saturation 89.9 (0-100) 03/15/21 12:54 Calcium 9.1 mg/dL (8.4-10.2) 03/26/21 07:04 Phosphorus 4.90 mg/dL (2.5-4.5) H 03/26/21 07:04 Magnesium 1.90 mg/dL (1.7-2.3) 03/26/21 07:04 Medications & Allergies - Medications Allergies/Adverse Reactions: Allergies No Known Allergies Allergy (Verified 06/09/20 15:27) Home Medications: Home Medications Medication Instructions Recorded Confirmed Last Taken Type Albuterol Mdi (or & Nicu Only) 2 puff IH QID PRN #1 inhalation 04/01/17 03/15/21 10/31/20 09:00 Rx [ProAir HFA Inhaler] Calcium Acetate 667 mg PO DAILY 04/20/20 03/15/21 10/31/20 09:00 History Centrum Men's Tablet 1 tab PO DAILY 04/20/20 03/15/21 10/31/20 09:00 History Cinacalcet 30 mg PO DAILY 04/20/20 03/15/21 10/31/20 09:00 History Dialyvite with Zinc Tablet 1 tab PO DAILY 04/20/20 03/15/21 10/31/20 09:00 History Magnesium 250 mg PO BID 04/20/20 03/15/21 10/31/20 17:00 History Triamcinolone 0.1% 1 1000units TRANSDERMA DAILY 04/20/20 03/15/21 10/31/20 09:00 History Vit B12/Folic Acid/B6/Aa No.15 1,000 mg PO DAILY 04/20/20 03/15/21 10/31/20 09:00 History amLODIPine 10 mg PO DAILY 06/09/20 03/15/21 10/31/20 09:00 History AtorvaSTATin 40 mg PO HS 11/01/20 03/15/21 10/31/20 21:00 History Benadryl 25 mg PO HS 11/01/20 03/15/21 10/31/20 21:00 History Diclofenac 1 applic TRANSDERMA QID 11/01/20 03/15/21 10/31/20 19:00 History Vitamin D3 2,000 units PO QDAY 11/01/20 03/15/21 10/31/20 09:00 History carvediloL 12.5 mg PO DAILY 11/01/20 03/15/21 10/31/20 09:00 History hydrALAZINE 100 mg PO TID 11/01/20 03/15/21 10/31/20 19:00 History Fluticasone Propionate 1 spray INTRANASAL DAILY #1 02/21/21 03/15/21 Unknown Rx HYDROcodone/ACETAMINOPHEN 15 ml PO Q6H PRN #150 ml 02/21/21 03/15/21 Unknown Rx [Hydrocodon-Acetamin 7.5-325/15] Insulin Glargine [Lantus VIAL] 5 units SUB-Q QHS #1 units 02/21/21 03/15/21 Unknown Rx Lispro Insulin [HumaLOG] See Protocol SUB-Q Q6HR #1 vial 02/21/21 03/15/21 Unknown Rx Scopolamine [Transderm-Scop] 1 each TD Q3D #10 patch 02/21/21 03/15/21 Unknown Rx cloNIDine-TTS PATCH [Catapres-Tts 0.2 mg TD We #30 patch 02/21/21 03/15/21 Unknown Rx 0.2mg Patch] Active Medications: Generic Name Dose Route Start Last Admin Trade Name Freq PRN Reason Stop Dose Admin Acetaminophen 650 mg 03/15/21 19:31 03/17/21 20:29 Acetaminophen 325 Mg Tab PO 650 mg Q4H PRN Administration Pain MILD(1-3)/Fever >100.5/HULL Hydrocodone Bitart/Acetaminophen 7.5 mg 03/15/21 19:39 03/27/21 18:27 Hydrocodone/Acetaminophen [id number] Oral Liqd PO 7.5 mg Q6H PRN Administration Pain , Severe (7-10) Albuterol 2.5 mg 03/15/21 19:31 Albuterol 2.5 Mg/3 Ml Nebu IH Q4HRT PRN Shortness Of Breath Calcium Acetate 667 mg 03/16/21 10:00 03/27/21 18:45 Calcium Acetate 667 Mg Cap PO Not Given DAILY THOMAS Cholecalciferol 2,000 unit 03/16/21 10:00 03/27/21 18:28 Cholecalciferol (Vit D3) 1000 Unit (25 Mcg) Tab PO 2,000 unit QDAY THOMAS Administration Clonidine HCl 0.3 mg 03/28/21 10:00 Clonidine Tts 0.3 Mg/24 Hr Patch TD Tu THOMAS Dextrose 50 ml 03/15/21 19:46 Dextrose 50% In Water (25gm) 50 Ml Syringe IV Q30MIN PRN Hypoglycemia Protocol Dicyclomine HCl 10 mg 03/25/21 14:00 03/27/21 21:31 Dicyclomine 10 Mg/5 Ml Oral Liqd PO 10 mg QID THOMAS Administration Famotidine 10 mg 03/15/21 22:00 03/27/21 21:30 Famotidine 20 Mg/2 Ml Inj IV 10 mg BID THOMAS Administration Heparin Sodium (Porcine) 3,200 unit 03/15/21 17:16 03/17/21 14:35 Heparin 10,000 Units/10 Ml Vial 40 unit/kg (3200 unit) 3,200 unit IV Administration Q6H PRN Anti-Xa Assay<0.1 units/ml Hydralazine HCl 10 mg 03/22/21 10:05 03/25/21 23:19 Hydralazine 20 Mg/1 Ml Inj IV 10 mg Q30MIN PRN Administration Hypertension Hydromorphone HCl 0.5 mg 03/15/21 19:31 Hydromorphone 1 Mg/1 Ml Inj IV Q3H PRN Pain , Severe (7-10) Sodium Chloride 100 mls @ 999 mls/hr 03/15/21 16:00 Nacl 0.9% IV RYLAND PRN Hypotension Heparin Sodium/Sodium Chloride 25,000 unit in 500 mls @ 23 mls/hr 03/16/21 07:00 03/28/21 00:18 Heparin/ 0.45% Nacl-25,000 Unit/500 Ml IV Infused TITR THOMAS Titration Protocol 1,150 UNITS/HR Micafungin Sodium 100 mg/ 100 mls @ 100 mls/hr 03/16/21 19:00 03/27/21 18:34 Sodium Chloride IV 100 mls/hr Q24H THOMAS Administration Protocol Dextrose/Sodium Chloride 1,000 mls @ 42 mls/hr 03/20/21 16:00 03/27/21 18:30 D5ns IV 42 mls/hr DIRECT THOMAS Administration Metronidazole 500 mg in 100 mls @ 100 mls/hr 03/25/21 14:00 03/28/21 05:41 Flagyl 500 Mg/100 Ml IV 100 mls/hr Q8H THOMAS Administration Protocol Amino Acids/Electrolytes/Dextrose 1,800 mls @ 75 mls/hr 03/27/21 20:00 03/27/21 21:28 Tpn Adult IV 03/28/21 19:59 75 mls/hr DAILY@2000 THOMAS Administration Protocol Insulin Human Regular 0 units 03/15/21 20:00 03/28/21 08:27 Insulin Regular, Human 100 Units/1 Ml SUB-Q Not Given Q6H THOMAS Protocol Morphine Sulfate 2 mg 03/15/21 19:31 03/16/21 13:27 Morphine 2 Mg/1 Ml Inj IV 2 mg Q4H PRN Administration Pain, Moderate (4-6) Ondansetron HCl 4 mg 03/15/21 19:31 03/25/21 10:34 Ondansetron 4 Mg/2 Ml Inj IV 4 mg Q8H PRN Administration Nausea And Vomiting Scopolamine 1 each 03/16/21 10:00 03/25/21 11:43 Scopolamine Transdermal Patch 72 Hr TD 1 each Q3D THOMAS Administration Sodium Chloride 10 ml 03/15/21 22:00 03/27/21 21:30 Sodium Chloride 0.9% 10 Ml Flush Syringe IV 10 ml BID THOMAS Administration Sodium Chloride 10 ml 03/15/21 20:31 Sodium Chloride 0.9% 10 Ml Flush Syringe IV PRN PRN LINE FLUSH Triamcinolone Acetonide 1 applic 03/22/21 12:00 03/27/21 18:28 Triamcinolone 0.1% Cream 15 Gm TP Not Given DAILY THOMAS
[2021-03-28] MEDS: FAMOTIDINE 20 MG/2 ML INJ IV SCH ×2 (10:19→22:45)
[2021-03-28] MEDS: SCOPOLAMINE TRANSDERMAL PATCH 72 HR TD SCH (10:20)
[2021-03-28 10:41] LABS: Calcium 8.8 mg/dL (8.4-10.2)
[2021-03-28] MEDS: HEPARIN/ 0.45% NACL DRIP 25,000 UNIT/500 ML BAG IV SCH (12:42)
--- NOTE | 2021-03-28 13:39 | Progress Note ---
Assessment and Plan Cultures: Blood culture 03/15/2021 growing Gwendolyn glabrata, Coag negative staph in multiple bottles 03/16/2021 urine culture: No growth 03/18/2021 blood culture: No growth Assessment: 61-year-old male with history of ESRD initially on PD, CHF, , Crohn's disease, CHF, gastroesophageal reflux disease, status post prolonged hospital complicated stay from 12/22/2020-02/21/2021 due to complicated small bowel obstruction with necrotic small bowel s/p small bowel resection and primary anastomosis, requiring right hemicolectomy on 01/03/2021, complicated with a Streptococcus bovis and Prevotella bacteremia on 12/22/2020, complicated with perforated anastomosis, s/p multiple surgeries readmitted on 03/15/2021 secondary to fever, hypoxia and altered mental status/somnolence: #Severe sepsis: likely secondary to candidemia. #Candidemia: present in several bottles of blood cultures. Likely due to intra- abdominal collection versus central line infection, patient had dialysis catheter as well as tunneled line, is on TPN. TTE without obvious vegetations on the valves. Lines removed 03/20/2021. #Coag negative staph bacteremia: Possibly due to central line infection. #Pancreatic pseudocyst vs intra-abdominal collection: CT with 6.6 x 3.3 x 4.8 cm pseudocyst could be source of candidemia. CRP 14.9. Lipase normal. #Complicated small bowel obstruction: with necrotic small bowel s/p small bowel resection and primary anastomosis, requiring right hemicolectomy on 01/03/2021, and multiple other surgeries and abx. #Acute pulmonary embolism: On anticoagulation. #Elevated LFTs: Likely secondary to sepsis/pancreatic pseudocyst more than acute hepatitis B infection. Patient noted to have hepatitis B core IgM positive ? False positive versus acute hepatitis B less likely. #ESRD on hemodialysis. Renally adjust antibiotics. #Acute encephalopathy: Likely secondary to sepsis. Improving. Recommendations: -Continue IV micafungin till Gwendolyn glabrata susceptibilities are available. Total treatment of at least 14 days from negative cultures. May be able to do high dose fluconazole if susceptible. End date: 03/30/2021 -Completed vancomycin -due to TPN, he remains at risk of recurrent line infections -Hepatitis B DNA negative Andre Redding MD [facility] ([facility] O: [phone] F: [phone] Subjective Date of service: 03/28/21 Principal diagnosis: Hypoxia, fever Interval history: No acute changes. Afebrile. Objective - Exam Narrative Exam: Physical Exam: Constitutional: Alert, no distress Head, Ears, Nose: Normocephalic, atraumatic. External ears, nose normal Eyes: Conjunctivae/corneas clear. No icterus. Neck: Supple, no meningeal signs Cardiovascular: S1, S2 normal. Respiratory: Good air entry, clear to auscultation bilaterally GI: Soft, non-tender; bowel sounds normal. No peritoneal signs. Drain + Musculoskeletal: No pedal edema, no cyanosis. Right neck region dressings + . Left neck with new lines Skin: No rash or abscess Hem/Lymphatic: No palpable cervical or supraclavicular nodes. No lymphangitis Psych: no agitation Neurological: Awake, alert, answering questio - Constitutional Vitals: Vital Signs Temp Pulse Resp BP Pulse Ox 98.4 F 89 18 168/97 93 03/28/21 08:33 03/28/21 08:33 03/28/21 08:33 03/28/21 08:33 03/28/21 08:33 Temperature -Last 24 Hours Temperature 98.4 F Temperature 98.6 F Temperature 99.2 F Temperature 99.2 F Temperature 98.2 F - Labs CBC & Chem 7: 03/27/21 18:18 03/28/21 09:58 Labs: Abnormal lab results 03/27/21 03/27/21 03/28/21 Range/Units 18:18 22:52 00:27 Hgb 7.4 L (11.8-15.2) gm/dl Hct 21.9 L (35.5-45.6) % Heparin Anti-Xa Level 0.10 L (0.3-0.7) U.I./ml Potassium (3.6-5.0) mmol/L Creatinine (0.8-1.3) mg/dL POC Glucose 114 H (70-105) mg/dL 03/28/21 03/28/21 03/28/21 Range/Units 06:35 09:58 09:58 Hgb (11.8-15.2) gm/dl Hct (35.5-45.6) % Heparin Anti-Xa Level < 0.10 L (0.3-0.7) U.I./ml Potassium 3.1 L (3.6-5.0) mmol/L Creatinine 7.0 H (0.8-1.3) mg/dL POC Glucose 113 H (70-105) mg/dL
--- NOTE | 2021-03-28 14:09 | Progress Note ---
Assessment and Plan Assessment and plan: 60-year-old male resident of [facility] with past history of congestive heart failure, hypertension, end-stage renal disease and Crohn's disease with extensive history of multiple abdominal surgeries for Small bowel obstruction/necrotic bowel, controlled anastomotic leak that is transitioning to a fistula presents to the ED with a chief complaint of fever hypoxemia acute respiratory failure. Patient received CT scan in the a.m. for work-up of hypoxemia and was found to have right sided pulmonary embolism. Patient was admitted placed on heparin drip. Patient was also complaining of some abdominal pain of which a CT scan of the abdomen and pelvis showed a 6 cm fluid collection between the stomach and the pancreas suggestive of a pancreatic pseudocyst. - Patient Problems (1) Elevated liver transaminase level Current Visit: Yes Status: Resolved Plan to address problem: Resolved. (2) Altered mental status Current Visit: Yes Status: Acute Plan to address problem: Encephalopathy has resolved. Patient is alert oriented x3. Angry and agitated today secondary to prolonged hospital stay and wants to go home. (3) Fever/she Current Visit: Yes Status: Acute Plan to address problem: Remains afebrile. (4) Pulmonary embolus Current Visit: Yes Status: Acute Plan to address problem: Patient pulmonary embolus. He has been refusing heparin. Now today he states that he is okay to use heparin. Plan would be upon discharge start patient on Eliquis for treatment for PE. He can swallow the pill. (5) CHF (congestive heart failure) Current Visit: No Status: Acute Qualifiers: Heart failure chronicity: chronic Plan to address problem: Fairly well compensated at this time. (6) ESRD (end stage renal disease) Current Visit: No Status: Acute Plan to address problem: Patient to received Vas-Cath placed Plan is to place a tunneled hemodialysis catheter and tunnel triple-lumen catheter so patient can receive dialysis and TPN on Saturday (7) Anemia Current Visit: Yes Status: Acute Plan to address problem: Transfuse for H&H less than 7. (8) Hepatitis B core antibody positive Current Visit: Yes Status: Acute Plan to address problem: Supportive care Gentle fluid hydration since patient is on hemodialysis. ID consult (9) Ischemic bowel disease Current Visit: Yes Status: Acute Plan to address problem: Patient with Crohn's disease. Has some abdominal pain when patient tries to eat and takes TPN that is why she is refusing TPN. (10) Severe Sepsis (11) Full code status Current Visit: No Status: Acute Daily clinical course: 03/16/21: Hemoglobin 6.0 this morning, continue to transfuse. Monitor H&H carefully while patient on heparin drip. Noted general surgery and IR recommendation. Will consult GI for pancreatic pseudocyst. Continue to follow clinically with supportive care. Blood culture growing yeast we'll also add fluconazole. 03/17/21: Patient receiving hemodialysis, BP appears to be stable, continue empiric antibiotic. Follow ID and GI recommendation. Per general surgery no intervention required for pancreatic pseudocyst. If patient condition return to BX may need to transfer to tertiary center for possible drainage. 03/18/21: Continue empiric antibiotics, hemodialysis per nephrology. Continue TPN. Patient H&H remained stable, continue to follow BMP. Transfer out of IM to telemetry. 03/19/21: Patient transferred to telemetry today. H&H remained stable. White count slightly elevated, will follow CBC. Repeat blood culture from 03/18/21 having no growth. Continue empiric antibiotics per ID and TPN. Discharge planning per general surgery and ID recommendation. Patient intermittently refusing care; counseled extensively he verbalized understanding and promised to follow hospital protocol and MD recommendations 10/21/20: Removed right-sided PermCath today per vascular as patient blood culture initially was positive for yeast. Continue empiric antibiotics per ID recommendation. Dialysis per nephrology. Continue TPN and follow BMP. Per ID: Due to fungemia, will need blood cultures to be negative at 5 days (03/23/2021) before new tunneled lines can be placed (Ok to place temporary ones if needed). 10/22/20; patient appears clinically stable, continue heparin drip and TPN. Patient last dialysis was on Saturday. Repeat blood culture need to be neg till for placing new PermCath for dialysis. Continue to monitor off dialysis. Final blood culture data and sensitivity is pending. 10/23/20: continue heparin drip and TPN. Patient last dialysis was on Saturday. Repeat blood culture need to be neg till for placing new PermCath for dialysis. Final blood culture data and sensitivity is pending. Planned to place permcath tomorrow by vascular if repeat blood cx remains neg. 03/23/2021. Patient very agitated today. This morning has refused heparin. Has refused all meds at this time. Unable to tell why. Not answering the question when I asked what can I do for you to assist you with your care. Patient is going to have hemodialysis catheter placed today. Patient has been 5 days without any goal for blood cultures. Multiple episodes in the past with bacteremia and fungemia. 03/24/2021 patient remains agitated today. Was dragging tube along the floor. Refused heparin again. Continue refuse medications not answering me at this time. Not as belligerent as yesterday but still noncompliant with treatment at this time. Discussion with case management/daughter. Agreed to go home. Patient will need PICC line for TPN. Will order PICC line anticipated discharge in a.m. Patient's much more stable today. Good conversation. Patient states he was just frustrated. Patient is excepting heparin now. Should be able to change to Eliquis upon discharge patient is not having any procedures. Plan will be to discharge home in a.m. after hemodialysis catheter and triple-lumen has been placed. Patient also has abdominal spasms and pain today. Patient has been eating and taking TPN when he does this he has abdominal pain and diarrhea. We will try short trial of Bentyl to see if this will help with abdominal spasms. 03/26: Although sometimes he refuses his TPN he aspirates very connected and is currently going. Still has some abdominal pain at his drain site. Could not ascertain if he is eating or not while waiting for nurse to review records and also discussed with the patient but he was not able to talk to me. We will continue to reevaluate. Continue drain management per surgeon. 03/27: Patient clinical stable, Permcath placement today, -ID following - Micafungin IV per ID w/ possible transition to high dose fluconazole pending sensitivites; IV vanc with HD to end today. Awaiting final input from ID and surgery in respect to discharge, still not clear if patient is tolerating any PO, nursing team to further evaluate. 03/28: Discussed with the surgeon and no further surgical eval needed, patient to continue on TPN and clear liquid diet and follow with Surgery outpatient. He is to continue on abx and antifungal till completion. Will switch back to Eliquis once the line is replaced Discussed with case management and awaiting Recertification for SNF History Interval history: Patient seen and examined, patient reports generalized lethargy and frustration with severity of his illness and the chronicity. Unfortunately today pulled out his Line accidentally. Hospitalist Physical - Physical exam Narrative exam: General appearance: Present: no acute distress, - EENT Eyes: PERRL, EOM intact - Respiratory Respiratory effort: normal - Cardiovascular Rhythm: regular Heart Sounds: Present: S1 & S2. Absent: gallop, rub Extremities: pulses intact, No edema, normal color, Full ROM Tunnel catheter in place - Gastrointestinal General gastrointestinal: Present: soft, tender, non-distended, hypoactive bowel sounds, HARIS drain noted - Musculoskeletal Musculoskeletal: 1, strength equal bilaterally - Neurologic Neurologic: moves all extremities - Psychiatric Psychiatric: memory intact, FLAT mood/affect, intact judgment & insight - Constitutional Vitals: Temp Pulse Resp BP Pulse Ox 98.4 F 89 18 168/97 93 03/28/21 08:33 03/28/21 08:33 03/28/21 08:33 03/28/21 08:33 03/28/21 08:33 General appearance: Present: no acute distress, other (Agitated) Results - Labs CBC & Chem 7: 03/27/21 18:18 03/28/21 09:58 Labs: Laboratory Last Values WBC 11.9 K/mm3 (4.5-11.0) H 03/25/21 11:45 RBC 2.30 M/mm3 (3.65-5.03) L 03/25/21 11:45 Hgb 7.4 gm/dl (11.8-15.2) L 03/27/21 18:18 Hct 21.9 % (35.5-45.6) L 03/27/21 18:18 MCV 93 fl (84-94) 03/25/21 11:45 MCH 30 pg (28-32) 03/25/21 11:45 MCHC 32 % (32-34) 03/25/21 11:45 RDW 18.2 % (13.2-15.2) H 03/25/21 11:45 Plt Count 212 K/mm3 (140-440) 03/27/21 18:18 Lymph % (Auto) 15.5 % (13.4-35.0) 03/23/21 05:20 [place] % (Auto) 7.4 % (0.0-7.3) H 03/23/21 05:20 Eos % (Auto) 4.0 % (0.0-4.3) 03/23/21 05:20 Baso % (Auto) 0.8 % (0.0-1.8) 03/23/21 05:20 Lymph # (Auto) 1.0 K/mm3 (1.2-5.4) L 03/23/21 05:20 [place] # (Auto) 0.5 K/mm3 (0.0-0.8) 03/23/21 05:20 Eos # (Auto) 0.3 K/mm3 (0.0-0.4) 03/23/21 05:20 Baso # (Auto) 0.1 K/mm3 (0.0-0.1) 03/23/21 05:20 Add Manual Diff Complete 03/17/21 05:57 Total Counted 100 03/17/21 05:57 Seg Neutrophils % 72.3 % (40.0-70.0) H 03/23/21 05:20 Seg Neuts % (Manual) 75.0 % (40.0-70.0) H 03/17/21 05:57 Band Neutrophils % 2.0 % 03/17/21 05:57 Lymphocytes % (Manual) 12.0 % (13.4-35.0) L 03/17/21 05:57 Reactive Lymphs % (Man) 1.0 % 03/15/21 11:23 Monocytes % (Manual) 5.0 % (0.0-7.3) 03/17/21 05:57 Eosinophils % (Manual) 6.0 % (0.0-4.3) H 03/17/21 05:57 Basophils % (Manual) 1.0 % (0.0-1.8) 03/16/21 07:45 Nucleated RBC % Not Reportable 03/17/21 05:57 Seg Neutrophils # 4.8 K/mm3 (1.8-7.7) 03/23/21 05:20 Seg Neutrophils # Man 6.5 K/mm3 (1.8-7.7) 03/17/21 05:57 Band Neutrophils # 0.2 K/mm3 03/17/21 05:57 Lymphocytes # (Manual) 1.0 K/mm3 (1.2-5.4) L 03/17/21 05:57 Abs React Lymphs (Man) 0.0 K/mm3 03/17/21 05:57 Monocytes # (Manual) 0.4 K/mm3 (0.0-0.8) 03/17/21 05:57 Eosinophils # (Manual) 0.5 K/mm3 (0.0-0.4) H 03/17/21 05:57 Basophils # (Manual) 0.0 K/mm3 (0.0-0.1) 03/17/21 05:57 Metamyelocytes # 0.0 K/mm3 03/17/21 05:57 Myelocytes # 0.0 K/mm3 03/17/21 05:57 Promyelocytes # 0.0 K/mm3 03/17/21 05:57 Blast Cells # 0.0 K/mm3 03/17/21 05:57 WBC Morphology Not Reportable 03/17/21 05:57 Hypersegmented Neuts Not Reportable 03/17/21 05:57 Hyposegmented Neuts Not Reportable 03/17/21 05:57 Hypogranular Neuts Not Reportable 03/17/21 05:57 Smudge Cells Not Reportable 03/17/21 05:57 Toxic Granulation Not Reportable 03/17/21 05:57 Toxic Vacuolation Not Reportable 03/17/21 05:57 Dohle Bodies Not Reportable 03/17/21 05:57 Pelger-Huet Anomaly Not Reportable 03/17/21 05:57 Lamar Rods Not Reportable 03/17/21 05:57 Platelet Estimate Consistent w auto 03/17/21 05:57 Clumped Platelets Not Reportable 03/17/21 05:57 Plt Clumps, EDTA Not Reportable 03/17/21 05:57 Large Platelets Not Reportable 03/17/21 05:57 Giant Platelets Rare 03/17/21 05:57 Platelet Satelliting Not Reportable 03/17/21 05:57 Plt Morphology Comment Not Reportable 03/17/21 05:57 RBC Morphology Not Reportable 03/17/21 05:57 Dimorphic RBCs Not Reportable 03/17/21 05:57 Polychromasia Not Reportable 03/17/21 05:57 Hypochromasia Few 03/17/21 05:57 Poikilocytosis Not Reportable 03/17/21 05:57 Anisocytosis Few 03/17/21 05:57 Microcytosis Not Reportable 03/17/21 05:57 Macrocytosis Not Reportable 03/17/21 05:57 Spherocytes Not Reportable 03/17/21 05:57 Pappenheimer Bodies Not Reportable 03/17/21 05:57 Sickle Cells Not Reportable 03/17/21 05:57 Target Cells Not Reportable 03/17/21 05:57 Tear Drop Cells Not Reportable 03/17/21 05:57 Ovalocytes Not Reportable 03/17/21 05:57 Helmet Cells Not Reportable 03/17/21 05:57 [place] Bodies Not Reportable 03/17/21 05:57 [place] Rings Not Reportable 03/17/21 05:57 [place] Cells Not Reportable 03/17/21 05:57 Bite Cells Not Reportable 03/17/21 05:57 Crenated Cell Not Reportable 03/17/21 05:57 Elliptocytes Not Reportable 03/17/21 05:57 Acanthocytes (Spur) Not Reportable 03/17/21 05:57 Rouleaux Not Reportable 03/17/21 05:57 Hemoglobin C Crystals Not Reportable 03/17/21 05:57 Schistocytes Not Reportable 03/17/21 05:57 Malaria parasites Not Reportable 03/17/21 05:57 [place] Bodies Not Reportable 03/17/21 05:57 Hem Pathologist Commnt No 03/17/21 05:57 PT 14.4 Sec. (12.2-14.9) 03/15/21 23:21 INR 1.07 (0.87-1.13) 03/15/21 23:21 APTT 29.7 Sec. (24.2-36.6) 03/15/21 23:21 Heparin Anti-Xa Level < 0.10 U.I./ml (0.3-0.7) L 03/28/21 09:58 ABG pH 7.367 (7.320-7.450) 03/15/21 12:54 POC ABG pCO2 28.5 mmHg (32.0-48.0) L 03/15/21 12:54 POC ABG pO2 62.8 mmHg (83-108) L 03/15/21 12:54 POC ABG HCO3 16.0 03/15/21 12:54 ABG O2 Saturation 89.9 (0-100) 03/15/21 12:54 POC ABG Base Excess -8.5 03/15/21 12:54 ABG Hemoglobin 6.3 (12.0-17.5) L 03/15/21 12:54 ABG Oxyhemoglobin 87.9 (94-98) L 03/15/21 12:54 ABG Methemoglobin 0.3 (0.0-1.5) 03/15/21 12:54 ABG Sodium 127.9 mmol/L (136.0-145.0) L 03/15/21 12:54 ABG Potassium 4.3 mmol/L (3.40-4.50) 03/15/21 12:54 ABG Chloride 100.0 mmol/L (98-107) 03/15/21 12:54 ABG Glucose 98 mg/dL (65-95) H 03/15/21 12:54 VBG pH 7.344 (7.320-7.420) 03/15/21 11:23 Carboxyhemoglobin 1.9 (0.5-1.5) H 03/15/21 12:54 FiO2 % 21.0 03/15/21 12:54 Sodium 138 mmol/L (137-145) 03/28/21 09:58 Potassium 3.1 mmol/L (3.6-5.0) L 03/28/21 09:58 Chloride 100.9 mmol/L (98-107) 03/28/21 09:58 Carbon Dioxide 27 mmol/L (22-30) 03/28/21 09:58 Anion Gap 13 mmol/L 03/28/21 09:58 BUN 16 mg/dL (9-20) 03/28/21 09:58 Creatinine 7.0 mg/dL (0.8-1.3) H 03/28/21 09:58 Estimated GFR 10 ml/min 03/28/21 09:58 BUN/Creatinine Ratio 2 % 03/28/21 09:58 Glucose 91 mg/dL (75-100) 03/28/21 09:58 POC Glucose 95 mg/dL (70-105) 03/28/21 11:46 Lactic Acid 0.80 mmol/L (0.7-2.0) 03/15/21 15:55 Calcium 8.8 mg/dL (8.4-10.2) 03/28/21 09:58 Phosphorus 3.30 mg/dL (2.5-4.5) 03/28/21 09:58 Magnesium 1.90 mg/dL (1.7-2.3) 03/26/21 07:04 Total Bilirubin 0.90 mg/dL (0.1-1.2) 03/26/21 07:04 Direct Bilirubin 0.4 mg/dL (0-0.2) H 03/18/21 06:08 Indirect Bilirubin 0.9 mg/dL 03/18/21 06:08 AST 21 units/L (5-40) 03/26/21 07:04 ALT 34 units/L (7-56) 03/26/21 07:04 Alkaline Phosphatase 191 units/L (35-129) H 03/26/21 07:04 C-Reactive Protein 14.90 mg/dL (0.00-1.30) H 03/16/21 18:45 Total Protein 6.5 g/dL (6.3-8.2) 03/26/21 07:04 Albumin 3.5 g/dL (3.9-5) L 03/26/21 07:04 Albumin/Globulin Ratio 1.2 % 03/26/21 07:04 Triglycerides 76 mg/dL (2-149) 03/21/21 03:23 Lipase 41 units/L (13-60) 03/16/21 18:45 Arterial Blood Glucose 98 mg/dL (65-95) H 03/15/21 12:54 Urine Color [place] (Yellow) 03/16/21 14:45 Urine Turbidity Hazy (Clear) 03/16/21 14:45 Urine pH 5.0 (5.0-7.0) 03/16/21 14:45 Ur Specific [place] 1.015 (1.003-1.030) 03/16/21 14:45 Urine Protein >500 mg/dL (Negative) 03/16/21 14:45 Urine Glucose (UA) Neg mg/dL (Negative) 03/16/21 14:45 Urine Ketones Neg mg/dL (Negative) 03/16/21 14:45 Urine Blood Lg (Negative) 03/16/21 14:45 Urine Nitrite Neg (Negative) 03/16/21 14:45 Urine Bilirubin Neg (Negative) 03/16/21 14:45 Urine Urobilinogen < 2.0 mg/dL (<2.0) 03/16/21 14:45 Ur Leukocyte Esterase Neg (Negative) 03/16/21 14:45 Urine WBC (Auto) 8.0 /HPF (0.0-6.0) H 03/16/21 14:45 Urine RBC (Auto) 3.0 /HPF (0.0-6.0) 03/16/21 14:45 U Epithel Cells (Auto) 1.0 /HPF (0-13.0) 03/16/21 14:45 Urine Mucus Few /HPF 03/16/21 14:45 Nasal Screen MRSA (PCR) Negative (Negative) 03/16/21 14:37 Random Vancomycin 13.6 ug/mL (0-40.0) 03/25/21 05:35 Coronavirus (PCR) Negative (Negative) 03/16/21 08:45 Hepatitis A IgM Ab Non-reactive (NonReactive) 03/15/21 15:55 Hep Bs Antigen Non-reactive (Negative) 03/15/21 15:55 Hep B Core IgM Ab Reactive (NonReactive) A 03/15/21 15:55 Hepatitis C Antibody Non-reactive (NonReactive) 03/15/21 15:55 Blood Type A POSITIVE 03/23/21 14:17 Antibody Screen Negative 03/23/21 14:17 Crossmatch See Detail 03/23/21 14:17 Jeffery/IV: Voiding Method Toilet Active Medications - Current Medications Current Medications: Generic Name Dose Route Start Last Admin Trade Name Freq PRN Reason Stop Dose Admin Acetaminophen 650 mg 03/15/21 19:31 03/17/21 20:29 Acetaminophen 325 Mg Tab PO 650 mg Q4H PRN Administration Pain MILD(1-3)/Fever >100.5/HULL Hydrocodone Bitart/Acetaminophen 7.5 mg 03/15/21 19:39 03/27/21 18:27 Hydrocodone/Acetaminophen [id number] Oral Liqd PO 7.5 mg Q6H PRN Administration Pain , Severe (7-10) Albuterol 2.5 mg 07/21/21 19:31 Albuterol 2.5 Mg/3 Ml Nebu IH Q4HRT PRN Shortness Of Breath Calcium Acetate 667 mg 03/16/21 10:00 03/28/21 10:09 Calcium Acetate 667 Mg Cap PO Not Given DAILY [facility] Cholecalciferol 2,000 unit 03/16/21 10:00 03/28/21 10:10 Cholecalciferol (Vit D3) 1000 Unit (25 Mcg) Tab PO Not Given QDAY [facility] Clonidine HCl 0.3 mg 03/28/21 10:00 03/28/21 10:19 Clonidine Tts 0.3 Mg/24 Hr Patch TD 0.3 mg Tu THOMAS Administration Dextrose 50 ml 03/15/21 19:46 Dextrose 50% In Water (25gm) 50 Ml Syringe IV Q30MIN PRN Hypoglycemia Protocol Dicyclomine HCl 10 mg 03/25/21 14:00 03/28/21 10:09 Dicyclomine 10 Mg/5 Ml Oral Liqd PO Not Given QID [facility] Famotidine 10 mg 03/15/21 22:00 03/28/21 10:19 Famotidine 20 Mg/2 Ml Inj IV 10 mg BID THOMAS Administration Heparin Sodium (Porcine) 3,200 unit 03/15/21 17:16 03/17/21 14:35 Heparin 10,000 Units/10 Ml Vial 40 unit/kg (3200 unit) 3,200 unit IV Administration Q6H PRN Anti-Xa Assay<0.1 units/ml Hydralazine HCl 10 mg 03/22/21 10:05 03/25/21 23:19 Hydralazine 20 Mg/1 Ml Inj IV 10 mg Q30MIN PRN Administration Hypertension Hydromorphone HCl 0.5 mg 03/15/21 19:31 03/28/21 10:17 Hydromorphone 1 Mg/1 Ml Inj IV 0.5 mg Q3H PRN Administration Pain , Severe (7-10) Sodium Chloride 100 mls @ 999 mls/hr 03/15/21 16:00 Nacl 0.9% IV [place] PRN Hypotension Heparin Sodium/Sodium Chloride 25,000 unit in 500 mls @ 23 mls/hr 03/16/21 07:00 03/28/21 13:05 Heparin/ 0.45% Nacl-25,000 Unit/500 Ml IV 1,850 units/hr TITR THOMAS 37 mls/hr Titration Protocol 1,150 UNITS/HR Micafungin Sodium 100 mg/ 100 mls @ 100 mls/hr 03/16/21 19:00 03/27/21 18:34 Sodium Chloride IV 03/30/21 19:59 100 mls/hr Q24H THOMAS Administration Protocol Dextrose/Sodium Chloride 1,000 mls @ 42 mls/hr 03/20/21 16:00 03/27/21 18:30 D5ns IV 42 mls/hr DIRECT THOMAS Administration Metronidazole 500 mg in 100 mls @ 100 mls/hr 03/25/21 14:00 03/28/21 05:41 Flagyl 500 Mg/100 Ml IV 100 mls/hr Q8H [facility] Administration Protocol Amino Acids/Electrolytes/Dextrose 1,800 mls @ 75 mls/hr 03/27/21 20:00 03/27/21 21:28 Tpn Adult IV 03/28/21 19:59 75 mls/hr DAILY@1999 [facility] Administration Protocol Amino Acids/Electrolytes/Dextrose 1,800 mls @ 75 mls/hr 03/28/21 20:00 Tpn Adult IV 03/29/21 19:59 DAILY@1999 [facility] Protocol Insulin Human Regular 0 units 03/15/21 20:00 03/28/21 08:27 Insulin Regular, Human 100 Units/1 Ml SUB-Q Not Given Q6H [facility] Protocol Morphine Sulfate 2 mg 03/15/21 19:31 03/16/21 13:27 Morphine 2 Mg/1 Ml Inj IV 2 mg Q4H PRN Administration Pain, Moderate (4-6) Ondansetron HCl 4 mg 03/15/21 19:31 03/25/21 10:34 Ondansetron 4 Mg/2 Ml Inj IV 4 mg Q8H PRN Administration Nausea And Vomiting Scopolamine 1 each 03/16/21 10:00 03/28/21 10:20 Scopolamine Transdermal Patch 72 Hr TD 1 each Q3D THOMAS Administration Sodium Chloride 10 ml 03/15/21 22:00 03/28/21 10:20 Sodium Chloride 0.9% 10 Ml Flush Syringe IV 10 ml BID THOMAS Administration Sodium Chloride 10 ml 03/15/21 20:31 Sodium Chloride 0.9% 10 Ml Flush Syringe IV PRN PRN LINE FLUSH Triamcinolone Acetonide 1 applic 03/22/21 12:00 08/02/21 18:28 Triamcinolone 0.1% Cream 15 Gm TP Not Given DAILY THOMAS Nutrition/Malnutrition Assess - Dietary Evaluation Nutrition/Malnutrition Findings: Nutrition Notes Start: 03/16/21 11:46 Freq: Status: Active Protocol: Document 03/27/21 08:17 (Rec: 03/27/21 08:21 [id number]) Nutrition Notes Initial or Follow up Reassessment Current Diagnosis CKD (stage V CKD),Hypertension ,Heart Failure Other Pertinent Diagnosis AMS, Fever, Pulmonary embolus Current Diet cl liq diet Labs/Tests no new labs Pertinent Medications reviewed Height 5 ft 7 in Weight 72.6 kg [place] Body Weight (kg) 67.27 BMI 25.0 Weight Status Appropriate Subjective/Other Information Day 11 PPN. Pt accepted PPN bag last night. Pt with intermittent abd pain. Pt at HD. He ate 0% of breakfast. Percent of energy/protein needs met: 45%/57% Burn Absent Trauma Absent GI Symptoms Other Current % PO Negligible Minimum of two criteria No Interpretation of Weight Loss (severe) >2% in 1 week #1 Nutrition Diagnosis Inadequate oral intake Diagnosis Progress(for reassessment Continues documentation) Is patient on ventilator? No Is Patient Ambulatory and/or Out of Bed No REE-([facility]-confined to bed) 6546.742 Calculation Used for Recommendations [facility] Additional Notes Pro needs >1.2g/kg: >87g/day Fluid needs 1-1.5L/day Nutrition Intervention Change Diet Order: Diet advancement when medically feasible Nutrition Support: PPN at 75 ml/hr. Osm 889 mosm MVI, Lipids Kcal 1,312 Protein (gm) 50 Carbohydrates (gm) 180 Fat (gm) 50 Fluid (mL) 2,050 Fiber (gm) 0 Goal #1 Meet needs as best as possible via TPN Goal #2 Diet advancement Anticipated Discharge Needs: Unable to identify at this time Follow-Up By: 03/28/21 Additional Comments Labs in AM: BMP, Phos F/u: PICC placement
--- NOTE | 2021-03-28 15:46 | Progress Note ---
Assessment and Plan 60-year-old male, with extensive history of multiple abdominal surgeries, controlled anastomotic leak that is transitioning to a fistula, and new acute pulmonary embolism. Stable and afebrile. Sepsis work up - blood cultures positive for fungus, IV access removed and replaced. Continue abx. Pulmonary embolism-supportive care and treat with anticoagulation -spoke with Dr. James the plan is to start him on Eliquis. Abdominal fluid collection consistent with pancreatic pseudocyst-no acute intervention planned at this time. Spoke to interventional radiology who said that the collection is not assessable externally. Will consult GI, for evaluation and follow-up and determine if he is amenable for endoscopic transgastric drainage of collection. I do not believe this service is offered at this facility and patient may need to get this done as an outpatient or transferred. With that said, assuming this is a pseudocyst, it may take a few weeks to get a mature wall of the cyst and allow for further interventional management. Anastomotic leak transitioned to controlled fistula-we will continue TPN, will allow clear liquids and monitor output. Would like to make sure that the output returns to minimal as it was prior to discharge at his last admission. Needs new PICC line access placed before discharge to allow for continued TPN. Encourage patient to drink oral protein supplements. Renal failure-dialysis per renal No acute general surgical intervention indicated at this time we will continue to follow. The patient is discharged to [facility] facility, he will need to be maintained on TPN, do not advance diet past full liquids. He will need his drains emptied at a minimum once a day and recorded for overall maintenance and management of anastomotic leak. Subjective Date of service: 03/28/21 Narrative: No acute events. Patient had his vascular access replaced yesterday. Patient complains of intermittent abdominal pain with some intermittent nausea. He denies it being what he just drank. Objective Vital Signs - 12hr 03/28/21 03/28/21 03/28/21 04:10 08:33 10:00 Temperature 98.6 F 98.4 F Pulse Rate 79 89 Respiratory 20 18 Rate Blood Pressure 173/92 168/97 O2 Sat by Pulse 95 93 89 Oximetry 03/28/21 11:39 Temperature 98.2 F Pulse Rate 86 Respiratory 18 Rate Blood Pressure 165/116 O2 Sat by Pulse 99 Oximetry - General physical appearance well developed, no distress, no pain - Respiratory normal expansion, normal respiratory effort - Abdomen soft, other (HARIS drain with 40 mL light brown fluid. Ends and outs recording is inconsistent patient says this is from yesterday's accumulation. G-tube is in place. Patient has abdominal pain over the right drain to deep palpation.) - Labs 03/27/21 18:18 03/28/21 09:58 Diabetes panel 03/28/21 Range/Units 09:58 Sodium 138 (137-145) mmol/L Potassium 3.1 L (3.6-5.0) mmol/L Chloride 100.9 (98-107) mmol/L Carbon Dioxide 27 (22-30) mmol/L BUN 16 (9-20) mg/dL Creatinine 7.0 H (0.8-1.3) mg/dL Glucose 91 (75-100) mg/dL Calcium 8.8 (8.4-10.2) mg/dL Calcium panel 03/28/21 Range/Units 09:58 Calcium 8.8 (8.4-10.2) mg/dL Phosphorus 3.30 (2.5-4.5) mg/dL Pituitary panel 03/28/21 Range/Units 09:58 Sodium 138 (137-145) mmol/L Potassium 3.1 L (3.6-5.0) mmol/L Chloride 100.9 (98-107) mmol/L Carbon Dioxide 27 (22-30) mmol/L BUN 16 (9-20) mg/dL Creatinine 7.0 H (0.8-1.3) mg/dL Glucose 91 (75-100) mg/dL Calcium 8.8 (8.4-10.2) mg/dL Adrenal panel 03/28/21 Range/Units 09:58 Sodium 138 (137-145) mmol/L Potassium 3.1 L (3.6-5.0) mmol/L Chloride 100.9 (98-107) mmol/L Carbon Dioxide 27 (22-30) mmol/L BUN 16 (9-20) mg/dL Creatinine 7.0 H (0.8-1.3) mg/dL Glucose 91 (75-100) mg/dL Calcium 8.8 (8.4-10.2) mg/dL
--- NOTE | 2021-03-28 16:04 | Event Note ---
Date: 03/28/21 Alerted that patient's PICC line has become dislodged and patient removed it. This is unfortunate. Patient has had recent instrumentation of his bilateral internal jugular veins and sites need to heal before placement of a new catheter. Consider placement of tunneled PICC line on or Saturday.
[2021-03-28] MEDS: TRIAMCINOLONE 0.1% CREAM 15 GM TP SCH (17:20)
[2021-03-28] MEDS ORDERED: TOTAL PARENTERAL NUTRITION 1,800 ML IV SCH (20:00)
[2021-03-28] MEDS: MICAFUNGIN 100 MG in SODIUM CHLORIDE 0.9% 100 ML IV SCH (22:45)
--- NOTE | 2021-03-29 09:33 | Progress Note ---
Assessment and Plan Assessment * End-stage renal disease on hemodialysis * Sepsis * Candidemia --Permcath removal - March 20, 2021 * Hypertension * Anemia secondary to ESRD * Secondary hyperparathyroidism Recommendations * Continue HD MWF, undergoing dialysis. Tolerating well. * UF as tolerated * New PermCath reinserted on 03/27/2021 * Surgery recommendations noted * Transfuse pRBC prn * ID following - Micafungin IV per ID w/ possible transition to high dose fluc onazole pending sensitivites; IV vanc with HD now completeed * Epogen TIW prn * Continue antiHTN medications Subjective Date of service: 03/29/21 Principal diagnosis: Hypoxia, fever Interval history: Patient is currently undergoing dialysis. Tolerating well. Comfortable. Denies any shortness of breath. Objective - Vital Signs Vital signs: Vital Signs - 12hr 03/28/21 03/29/21 03/29/21 22:00 07:48 08:58 Temperature 98.0 F 98.6 F Pulse Rate 67 Respiratory 18 18 18 Rate Blood Pressure 188/98 [Right] O2 Sat by Pulse 96 Oximetry - General Appearance General appearance: well-developed, well-nourished, appears stated age EENT: PERRL, mucous membranes moist Neck: no JVD, no thyromegaly, no carotid bruit, supple, other (Right IJ PermCath in place) Respiratory: Present: Clear to Ascultation Cardiology: regular, normal heart rate, S1S2, no murmurs Gastrointestinal: normoactive bowel sounds, other (Drainage tubes in place) Integumentary: no rash, other (No edema) - Lab 03/27/21 18:18 03/28/21 09:58 Most recent lab results ABG pH 7.367 (7.320-7.450) 03/15/21 12:54 ABG O2 Saturation 89.9 (0-100) 03/15/21 12:54 Calcium 8.8 mg/dL (8.4-10.2) 03/28/21 09:58 Phosphorus 3.30 mg/dL (2.5-4.5) 03/28/21 09:58 Magnesium 1.90 mg/dL (1.7-2.3) 03/26/21 07:04 Medications & Allergies - Medications Allergies/Adverse Reactions: Allergies No Known Allergies Allergy (Verified 06/09/20 15:27) Home Medications: Home Medications Medication Instructions Recorded Confirmed Last Taken Type Albuterol Mdi (or & Nicu Only) 2 puff IH QID PRN #1 inhalation 04/01/17 03/15/21 10/31/20 09:00 Rx [ProAir HFA Inhaler] Calcium Acetate 667 mg PO DAILY 04/20/20 03/15/21 10/31/20 09:00 History Centrum Men's Tablet 1 tab PO DAILY 04/20/20 03/15/21 10/31/20 09:00 History Cinacalcet 30 mg PO DAILY 04/20/20 03/15/21 10/31/20 09:00 History Dialyvite with Zinc Tablet 1 tab PO DAILY 04/20/20 03/15/21 10/31/20 09:00 History Magnesium 250 mg PO BID 04/20/20 03/15/21 10/31/20 17:00 History Triamcinolone 0.1% 1 1000units TRANSDERMA DAILY 04/20/20 03/15/21 10/31/20 09:00 History Vit B12/Folic Acid/B6/Aa No.15 1,000 mg PO DAILY 04/20/20 03/15/21 10/31/20 09:00 History AtorvaSTATin 40 mg PO HS 11/01/20 03/15/21 10/31/20 21:00 History Benadryl 25 mg PO HS 11/01/20 03/15/21 10/31/20 21:00 History Diclofenac 1 applic TRANSDERMA QID 11/01/20 03/15/21 10/31/20 19:00 History Vitamin D3 2,000 units PO QDAY 11/01/20 03/15/21 10/31/20 09:00 History carvediloL 12.5 mg PO DAILY 11/01/20 03/15/21 10/31/20 09:00 History Fluticasone Propionate 1 spray INTRANASAL DAILY #1 02/21/21 03/15/21 Unknown Rx Insulin Glargine [Lantus VIAL] 5 units SUB-Q QHS #1 units 02/21/21 03/15/21 Unknown Rx Lispro Insulin [HumaLOG] See Protocol SUB-Q Q6HR #1 vial 02/21/21 03/15/21 Unknown Rx Scopolamine [Transderm-Scop] 1 each TD Q3D #10 patch 02/21/21 03/15/21 Unknown Rx Dicyclomine [Bentyl] 10 mg PO QID 10 Days oral.liqd 03/28/21 Unknown Rx HYDROcodone/ACETAMINOPHEN 15 ml PO Q6H PRN #150 ml 03/28/21 Unknown Rx [Hydrocodone-Acetamn 7.5-325/15] Micafungin 100 mg IV Q24H vial 03/28/21 Unknown Rx Total Parenteral Nutrition [TPN 3,000 ml IV DAILY@2000 ml 03/28/21 Unknown Rx Adult] Triamcinolone 0.1% [Kenalog 0.1% 1 applic TP DAILY #1 tube 03/28/21 Unknown Rx CREAM] cloNIDine-TTS PATCH [Catapres-Tts 0.3 mg TD Tu #4 patch 03/28/21 Unknown Rx 0.3mg Patch] Active Medications: Generic Name Dose Route Start Last Admin Trade Name Freq PRN Reason Stop Dose Admin Acetaminophen 650 mg 03/15/21 19:31 03/17/21 20:29 Acetaminophen 325 Mg Tab PO 650 mg Q4H PRN Administration Pain MILD(1-3)/Fever >100.5/HULL Hydrocodone Bitart/Acetaminophen 7.5 mg 03/15/21 19:39 03/27/21 18:27 Hydrocodone/Acetaminophen [id number] Oral Liqd PO 7.5 mg Q6H PRN Administration Pain , Severe (7-10) Albuterol 2.5 mg 03/15/21 19:31 Albuterol 2.5 Mg/3 Ml Nebu IH Q4HRT PRN Shortness Of Breath Calcium Acetate 667 mg 03/16/21 10:00 03/28/21 10:09 Calcium Acetate 667 Mg Cap PO Not Given DAILY THOMAS Cholecalciferol 2,000 unit 03/16/21 10:00 03/28/21 10:10 Cholecalciferol (Vit D3) 1000 Unit (25 Mcg) Tab PO Not Given QDAY THOMAS Clonidine HCl 0.3 mg 03/28/21 10:00 03/28/21 10:19 Clonidine Tts 0.3 Mg/24 Hr Patch TD 0.3 mg Tu THOMAS Administration Dextrose 50 ml 03/15/21 19:46 Dextrose 50% In Water (25gm) 50 Ml Syringe IV Q30MIN PRN Hypoglycemia Protocol Dicyclomine HCl 10 mg 03/25/21 14:00 03/28/21 22:00 Dicyclomine 10 Mg/5 Ml Oral Liqd PO Not Given QID THOMAS Famotidine 10 mg 03/15/21 22:00 03/28/21 22:45 Famotidine 20 Mg/2 Ml Inj IV 10 mg BID THOMAS Administration Heparin Sodium (Porcine) 3,200 unit 03/15/21 17:16 03/17/21 14:35 Heparin 10,000 Units/10 Ml Vial 40 unit/kg (3200 unit) 3,200 unit IV Administration Q6H PRN Anti-Xa Assay<0.1 units/ml Hydralazine HCl 10 mg 03/22/21 10:05 03/25/21 23:19 Hydralazine 20 Mg/1 Ml Inj IV 10 mg Q30MIN PRN Administration Hypertension Hydromorphone HCl 0.5 mg 03/15/21 19:31 03/28/21 10:17 Hydromorphone 1 Mg/1 Ml Inj IV 0.5 mg Q3H PRN Administration Pain , Severe (7-10) Sodium Chloride 100 mls @ 999 mls/hr 03/15/21 16:00 Nacl 0.9% IV RYLAND PRN Hypotension Heparin Sodium/Sodium Chloride 25,000 unit in 500 mls @ 23 mls/hr 03/16/21 07:00 03/28/21 13:05 Heparin/ 0.45% Nacl-25,000 Unit/500 Ml IV 1,850 units/hr TITR THOMAS 37 mls/hr Titration Protocol 1,150 UNITS/HR Micafungin Sodium 100 mg/ 100 mls @ 100 mls/hr 03/16/21 19:00 03/28/21 22:45 Sodium Chloride IV 03/30/21 19:59 100 mls/hr Q24H THOMAS Administration Protocol Dextrose/Sodium Chloride 1,000 mls @ 42 mls/hr 03/20/21 16:00 03/27/21 18:30 D5ns IV 42 mls/hr DIRECT THOMAS Administration Metronidazole 500 mg in 100 mls @ 100 mls/hr 03/25/21 14:00 03/28/21 22:45 Flagyl 500 Mg/100 Ml IV 100 mls/hr Q8H THOMAS Administration Protocol Amino Acids/Electrolytes/Dextrose 1,800 mls @ 75 mls/hr 03/28/21 20:00 Tpn Adult IV 03/29/21 19:59 DAILY@1999 [facility] Protocol Insulin Human Regular 0 units 03/15/21 20:00 03/28/21 20:00 Insulin Regular, Human 100 Units/1 Ml SUB-Q Not Given Q6H [facility] Protocol Morphine Sulfate 2 mg 03/15/21 19:31 03/16/21 13:27 Morphine 2 Mg/1 Ml Inj IV 2 mg Q4H PRN Administration Pain, Moderate (4-6) Ondansetron HCl 4 mg 03/15/21 19:31 03/25/21 10:34 Ondansetron 4 Mg/2 Ml Inj IV 4 mg Q8H PRN Administration Nausea And Vomiting Scopolamine 1 each 03/16/21 10:00 03/28/21 10:20 Scopolamine Transdermal Patch 72 Hr TD 1 each Q3D THOMAS Administration Sodium Chloride 10 ml 03/15/21 22:00 03/29/21 00:17 Sodium Chloride 0.9% 10 Ml Flush Syringe IV 10 ml BID THOMAS Administration Sodium Chloride 10 ml 03/15/21 20:31 Sodium Chloride 0.9% 10 Ml Flush Syringe IV PRN PRN LINE FLUSH Triamcinolone Acetonide 1 applic 03/22/21 12:00 03/28/21 17:20 Triamcinolone 0.1% Cream 15 Gm TP Not Given DAILY [facility]
[2021-03-29] MEDS: INSULIN REGULAR, HUMAN 100 UNITS/1 ML SUB-Q SCH ×4 (11:12→21:34)
[2021-03-29] MEDS: DICYCLOMINE 10 MG/5 ML ORAL LIQD PO SCH ×5 (11:14→21:44)
[2021-03-29] MEDS: metroNIDAZOLE/NS 500 MG/100 ML 500 MG/100 ML BAG IV SCH ×3 (11:15→21:47)
[2021-03-29] MEDS: FAMOTIDINE 20 MG/2 ML INJ IV SCH ×2 (11:15→21:45)
[2021-03-29] MEDS: CHOLECALCIFEROL (VIT D3) 1000 UNIT (25 mcg) TAB PO SCH (13:39)
[2021-03-29] MEDS: CALCIUM ACETATE 667 MG CAP PO SCH (13:41)
[2021-03-29] MEDS: TRIAMCINOLONE 0.1% CREAM 15 GM TP SCH (13:41)
--- NOTE | 2021-03-29 15:52 | Progress Note ---
Assessment and Plan Cultures: Blood culture 03/15/2021 growing Gwendolyn glabrata, Coag negative staph in multiple bottles 03/16/2021 urine culture: No growth 03/18/2021 blood culture: No growth Assessment: 61-year-old male with history of ESRD initially on PD, CHF, , Crohn's disease, CHF, gastroesophageal reflux disease, status post prolonged hospital complicated stay from 12/22/2020-02/21/2021 due to complicated small bowel obstruction with necrotic small bowel s/p small bowel resection and primary anastomosis, requiring right hemicolectomy on 01/03/2021, complicated with a Streptococcus bovis and Prevotella bacteremia on 12/22/2020, complicated with perforated anastomosis, s/p multiple surgeries readmitted on 03/15/2021 secondary to fever, hypoxia and altered mental status/somnolence: #Severe sepsis: likely secondary to candidemia. #Candidemia: present in several bottles of blood cultures. Likely due to intra- abdominal collection versus central line infection, patient had dialysis catheter as well as tunneled line, is on TPN. TTE without obvious vegetations on the valves. Lines removed 03/20/2021. #Coag negative staph bacteremia: Possibly due to central line infection. #Pancreatic pseudocyst vs intra-abdominal collection: CT with 6.6 x 3.3 x 4.8 cm pseudocyst could be source of candidemia. CRP 14.9. Lipase normal. #Complicated small bowel obstruction: with necrotic small bowel s/p small bowel resection and primary anastomosis, requiring right hemicolectomy on 01/03/2021, and multiple other surgeries and abx. #Acute pulmonary embolism: On anticoagulation. #Elevated LFTs: Likely secondary to sepsis/pancreatic pseudocyst more than acute hepatitis B infection. Patient noted to have hepatitis B core IgM positive ? False positive versus acute hepatitis B less likely. #ESRD on hemodialysis. Renally adjust antibiotics. #Acute encephalopathy: Likely secondary to sepsis. Improving. Recommendations: -Continue IV micafungin till Gwendolyn glabrata susceptibilities are available. Total treatment of at least 14 days from negative cultures. May be able to do high dose fluconazole if susceptible. End date: 03/30/2021 -due to TPN, he remains at risk of recurrent line infections -Hepatitis B DNA negative Andre Redding MD [facility] ([facility] O: [phone] F: [phone] Subjective Date of service: 03/29/21 Principal diagnosis: Hypoxia, fever Interval history: Afebrile, no acute change. PICC line was removed by patient. Objective - Exam Narrative Exam: Physical Exam: Constitutional: Alert, no distress Head, Ears, Nose: Normocephalic, atraumatic. External ears, nose normal Eyes: Conjunctivae/corneas clear. No icterus. Neck: Supple, no meningeal signs Cardiovascular: S1, S2 normal. Respiratory: Good air entry, clear to auscultation bilaterally GI: Soft, non-tender; bowel sounds normal. No peritoneal signs. Drain + Musculoskeletal: No pedal edema, no cyanosis. Right neck region dressings + . Left neck with new lines Skin: No rash or abscess Hem/Lymphatic: No palpable cervical or supraclavicular nodes. No lymphangitis Psych: no agitation Neurological: Awake, alert, answering questio - Constitutional Vitals: Vital Signs Temp Pulse Resp BP Pulse Ox 98.6 F 79 18 151/101 100 03/29/21 08:58 03/29/21 12:50 03/29/21 12:50 03/29/21 12:50 03/29/21 12:50 Temperature -Last 24 Hours Temperature 98.6 F Temperature 98.2 F Temperature 98.0 F Temperature 99.0 F - Labs CBC & Chem 7: 03/27/21 18:18 03/28/21 09:58 Labs: Abnormal lab results 03/28/21 Range/Units 19:37 Heparin Anti-Xa Level < 0.10 L (0.3-0.7) U.I./ml
[2021-03-29] MEDS ORDERED: HEPARIN 10,000 UNITS/10 ML VIAL IV SCH (16:30)
[2021-03-29 19:30] LABS: Hemoglobin 6.7 gm/dl (11.8-15.2)
[2021-03-29 19:43] LABS: Calcium 8.2 mg/dL (8.4-10.2)
[2021-03-29 19:53] LABS: Hematocrit 19.7 % (35.5-45.6)
[2021-03-29] MEDS: MICAFUNGIN 100 MG in SODIUM CHLORIDE 0.9% 100 ML IV SCH (21:46)
[2021-03-29] MEDS ORDERED: SODIUM CHLORIDE 0.9% 500 ML 500 ML IV ONE (22:15)
[2021-03-30] MEDS: INSULIN REGULAR, HUMAN 100 UNITS/1 ML SUB-Q SCH ×3 (03:03→15:30)
[2021-03-30] MEDS ORDERED: SODIUM CHLORIDE 0.9% 500 ML 500 ML IV ONE (03:15)
[2021-03-30] MEDS: HEPARIN/ 0.45% NACL DRIP 25,000 UNIT/500 ML BAG IV SCH ×2 (04:14→20:57)
[2021-03-30] MEDS: metroNIDAZOLE/NS 500 MG/100 ML 500 MG/100 ML BAG IV SCH ×3 (06:18→22:58)
--- NOTE | 2021-03-30 09:20 | Progress Note ---
Assessment and Plan Assessment * End-stage renal disease on hemodialysis * Sepsis * Candidemia --Permcath removal - March 20, 2021 * Hypertension * Anemia secondary to ESRD * Secondary hyperparathyroidism * Pulmonary embolism Recommendations * Continue HD MWF, * UF as tolerated * New PermCath reinserted on 03/27/2021 * Surgery recommendations noted * Transfuse pRBC prn * ID notes appreciated - Micafungin IV per ID w/ possible transition to high dose fluconazole pending sensitivites; IV vanc with HD now completeed * Epogen TIW prn * Continue antiHTN medications Subjective Date of service: 03/30/21 Principal diagnosis: Hypoxia, fever Interval history: Patient is comfortable today. Denies any shortness of breath. Currently on a heparin drip. Uneventful hemodialysis yesterday. Objective - Vital Signs Vital signs: Vital Signs - 12hr 03/30/21 03/30/21 03/30/21 00:32 04:51 05:24 Temperature 98.7 F 98.4 F 98.4 F Pulse Rate 67 68 55 L Respiratory 18 22 18 Rate Blood Pressure 149/91 170/94 Blood Pressure 151/94 [Right] O2 Sat by Pulse 98 98 97 Oximetry 03/30/21 09:05 Temperature 98.6 F Pulse Rate 61 Respiratory Rate Blood Pressure Blood Pressure 188/106 [Right] O2 Sat by Pulse Oximetry - General Appearance General appearance: well-developed, well-nourished, appears stated age EENT: PERRL, mucous membranes moist Neck: no JVD, no thyromegaly, no carotid bruit, supple, other (Right IJ PermCath in place) Respiratory: Present: Clear to Ascultation Cardiology: regular, normal heart rate Gastrointestinal: other (Drainage tubes noted) Integumentary: other (No edema) - Lab 03/29/21 19:13 03/29/21 19:13 Most recent lab results ABG pH 7.367 (7.320-7.450) 03/15/21 12:54 ABG O2 Saturation 89.9 (0-100) 03/15/21 12:54 Calcium 8.2 mg/dL (8.4-10.2) L 03/29/21 19:13 Phosphorus 2.50 mg/dL (2.5-4.5) D 03/29/21 19:13 Magnesium 1.40 mg/dL (1.7-2.3) L 03/29/21 19:13 Medications & Allergies - Medications Allergies/Adverse Reactions: Allergies No Known Allergies Allergy (Verified 06/09/20 15:27) Home Medications: Home Medications Medication Instructions Recorded Confirmed Last Taken Type Albuterol Mdi (or & Nicu Only) 2 puff IH QID PRN #1 inhalation 04/01/17 03/15/21 10/31/20 09:00 Rx [ProAir HFA Inhaler] Calcium Acetate 667 mg PO DAILY 04/20/20 03/15/21 10/31/20 09:00 History Centrum Men's Tablet 1 tab PO DAILY 04/20/20 03/15/21 10/31/20 09:00 History Cinacalcet 30 mg PO DAILY 04/20/20 03/15/21 10/31/20 09:00 History Dialyvite with Zinc Tablet 1 tab PO DAILY 04/20/20 03/15/21 10/31/20 09:00 History Magnesium 250 mg PO BID 04/20/20 03/15/21 10/31/20 17:00 History Triamcinolone 0.1% 1 1000units TRANSDERMA DAILY 04/20/20 03/15/21 10/31/20 09:00 History Vit B12/Folic Acid/B6/Aa No.15 1,000 mg PO DAILY 04/20/20 03/15/21 10/31/20 09:00 History AtorvaSTATin 40 mg PO HS 11/01/20 03/15/21 10/31/20 21:00 History Benadryl 25 mg PO HS 11/01/20 03/15/21 10/31/20 21:00 History Diclofenac 1 applic TRANSDERMA QID 11/01/20 03/15/21 10/31/20 19:00 History Vitamin D3 2,000 units PO QDAY 11/01/20 03/15/21 10/31/20 09:00 History carvediloL 12.5 mg PO DAILY 11/01/20 03/15/21 10/31/20 09:00 History Fluticasone Propionate 1 spray INTRANASAL DAILY #1 02/21/21 03/15/21 Unknown Rx Insulin Glargine [Lantus VIAL] 5 units SUB-Q QHS #1 units 02/21/21 03/15/21 Unknown Rx Lispro Insulin [HumaLOG] See Protocol SUB-Q Q6HR #1 vial 02/21/21 03/15/21 Unknown Rx Scopolamine [Transderm-Scop] 1 each TD Q3D #10 patch 02/21/21 03/15/21 Unknown Rx Dicyclomine [Bentyl] 10 mg PO QID 10 Days oral.liqd 03/28/21 Unknown Rx HYDROcodone/ACETAMINOPHEN 15 ml PO Q6H PRN #150 ml 03/28/21 Unknown Rx [Hydrocodone-Acetamn 7.5-325/15] Micafungin 100 mg IV Q24H vial 03/28/21 Unknown Rx Total Parenteral Nutrition [TPN 3,000 ml IV DAILY@2000 ml 03/28/21 Unknown Rx Adult] Triamcinolone 0.1% [Kenalog 0.1% 1 applic TP DAILY #1 tube 03/28/21 Unknown Rx CREAM] cloNIDine-TTS PATCH [Catapres-Tts 0.3 mg TD Tu #4 patch 03/28/21 Unknown Rx 0.3mg Patch] Active Medications: Generic Name Dose Route Start Last Admin Trade Name Freq PRN Reason Stop Dose Admin Acetaminophen 650 mg 03/15/21 19:31 03/17/21 20:29 Acetaminophen 325 Mg Tab PO 650 mg Q4H PRN Administration Pain MILD(1-3)/Fever >100.5/HULL Hydrocodone Bitart/Acetaminophen 7.5 mg 03/15/21 19:39 03/27/21 18:27 Hydrocodone/Acetaminophen [id number] Oral Liqd PO 7.5 mg Q6H PRN Administration Pain , Severe (7-10) Albuterol 2.5 mg 03/15/21 19:31 Albuterol 2.5 Mg/3 Ml Nebu IH Q4HRT PRN Shortness Of Breath Calcium Acetate 667 mg 03/16/21 10:00 03/29/21 13:41 Calcium Acetate 667 Mg Cap PO Not Given DAILY THOMAS Cholecalciferol 2,000 unit 03/16/21 10:00 03/29/21 13:39 Cholecalciferol (Vit D3) 1000 Unit (25 Mcg) Tab PO 2,000 unit QDAY THOMAS Administration Clonidine HCl 0.3 mg 03/28/21 10:00 03/28/21 10:19 Clonidine Tts 0.3 Mg/24 Hr Patch TD 0.3 mg Tu THOMAS Administration Dextrose 50 ml 03/15/21 19:46 Dextrose 50% In Water (25gm) 50 Ml Syringe IV Q30MIN PRN Hypoglycemia Protocol Dicyclomine HCl 10 mg 03/25/21 14:00 03/29/21 21:44 Dicyclomine 10 Mg/5 Ml Oral Liqd PO Not Given QID THOMAS Famotidine 10 mg 03/15/21 22:00 03/29/21 21:45 Famotidine 20 Mg/2 Ml Inj IV Not Given BID THOMAS Heparin Sodium (Porcine) 3,200 unit 03/15/21 17:16 03/17/21 14:35 Heparin 10,000 Units/10 Ml Vial 40 unit/kg (3200 unit) 3,200 unit IV Administration Q6H PRN Anti-Xa Assay<0.1 units/ml Hydralazine HCl 10 mg 03/22/21 10:05 03/25/21 23:19 Hydralazine 20 Mg/1 Ml Inj IV 10 mg Q30MIN PRN Administration Hypertension Hydromorphone HCl 0.5 mg 03/15/21 19:31 03/28/21 10:17 Hydromorphone 1 Mg/1 Ml Inj IV 0.5 mg Q3H PRN Administration Pain , Severe (7-10) Sodium Chloride 100 mls @ 999 mls/hr 03/15/21 16:00 Nacl 0.9% IV RYLAND PRN Hypotension Heparin Sodium/Sodium Chloride 25,000 unit in 500 mls @ 23 mls/hr 03/16/21 07:00 03/30/21 05:00 Heparin/ 0.45% Nacl-25,000 Unit/500 Ml IV 0 units/hr TITR THOMAS 0 mls/hr Titration Protocol 1,150 UNITS/HR Micafungin Sodium 100 mg/ 100 mls @ 100 mls/hr 03/16/21 19:00 03/29/21 21:46 Sodium Chloride IV 03/30/21 19:59 Not Given Q24H THOMAS Protocol Dextrose/Sodium Chloride 1,000 mls @ 42 mls/hr 03/20/21 16:00 03/27/21 18:30 D5ns IV 42 mls/hr DIRECT THOMAS Administration Metronidazole 500 mg in 100 mls @ 100 mls/hr 03/25/21 14:00 03/30/21 06:18 Flagyl 500 Mg/100 Ml IV Not Given Q8H [facility] Protocol Insulin Human Regular 0 units 03/15/21 20:00 03/30/21 08:41 Insulin Regular, Human 100 Units/1 Ml SUB-Q Not Given Q6H [facility] Protocol Morphine Sulfate 2 mg 03/15/21 19:31 03/16/21 13:27 Morphine 2 Mg/1 Ml Inj IV 2 mg Q4H PRN Administration Pain, Moderate (4-6) Ondansetron HCl 4 mg 03/15/21 19:31 03/25/21 10:34 Ondansetron 4 Mg/2 Ml Inj IV 4 mg Q8H PRN Administration Nausea And Vomiting Scopolamine 1 each 03/16/21 10:00 03/28/21 10:20 Scopolamine Transdermal Patch 72 Hr TD 1 each Q3D THOMAS Administration Sodium Chloride 10 ml 03/15/21 22:00 03/29/21 21:44 Sodium Chloride 0.9% 10 Ml Flush Syringe IV 10 ml BID THOMAS Administration Sodium Chloride 10 ml 03/15/21 20:31 Sodium Chloride 0.9% 10 Ml Flush Syringe IV PRN PRN LINE FLUSH Triamcinolone Acetonide 1 applic 03/22/21 12:00 03/29/21 13:41 Triamcinolone 0.1% Cream 15 Gm TP 1 applic DAILY THOMAS Administration
[2021-03-30] MEDS: DICYCLOMINE 10 MG/5 ML ORAL LIQD PO SCH ×4 (10:47→22:58)
[2021-03-30] MEDS: CHOLECALCIFEROL (VIT D3) 1000 UNIT (25 mcg) TAB PO SCH (11:02)
[2021-03-30] MEDS: CALCIUM ACETATE 667 MG CAP PO SCH (11:02)
[2021-03-30] MEDS: FAMOTIDINE 20 MG/2 ML INJ IV SCH ×2 (11:03→22:57)
[2021-03-30] MEDS: TRIAMCINOLONE 0.1% CREAM 15 GM TP SCH (11:03)
--- NOTE | 2021-03-30 14:44 | Progress Note ---
Assessment and Plan Assessment and plan: 60-year-old male resident of [facility] with past history of congestive heart failure, hypertension, end-stage renal disease and Crohn's disease with extensive history of multiple abdominal surgeries for Small bowel obstruction/necrotic bowel, controlled anastomotic leak that is transitioning to a fistula presents to the ED with a chief complaint of fever hypoxemia acute respiratory failure. Patient received CT scan in the a.m. for work-up of hypoxemia and was found to have right sided pulmonary embolism. Patient was admitted placed on heparin drip. Patient was also complaining of some abdominal pain of which a CT scan of the abdomen and pelvis showed a 6 cm fluid collection between the stomach and the pancreas suggestive of a pancreatic pseudocyst. - Patient Problems (1) Elevated liver transaminase level Current Visit: Yes Status: Resolved Plan to address problem: Resolved. (2) Altered mental status Current Visit: Yes Status: Acute Plan to address problem: Encephalopathy has resolved. Patient is alert oriented x3. Angry and agitated today secondary to prolonged hospital stay and wants to go home. (3) Fever/she Current Visit: Yes Status: Acute Plan to address problem: Remains afebrile. (4) Pulmonary embolus Current Visit: Yes Status: Acute Plan to address problem: Patient pulmonary embolus. He has been refusing heparin. Now today he states that he is okay to use heparin. Plan would be upon discharge start patient on Eliquis for treatment for PE. He can swallow the pill. (5) CHF (congestive heart failure) Current Visit: No Status: Acute Qualifiers: Heart failure chronicity: chronic Plan to address problem: Fairly well compensated at this time. (6) ESRD (end stage renal disease) Current Visit: No Status: Acute Plan to address problem: Patient to received Vas-Cath placed Plan is to place a tunneled hemodialysis catheter and tunnel triple-lumen catheter so patient can receive dialysis and TPN on Saturday (7) Anemia Current Visit: Yes Status: Acute Plan to address problem: Transfuse for H&H less than 7. (8) Hepatitis B core antibody positive Current Visit: Yes Status: Acute Plan to address problem: Supportive care Gentle fluid hydration since patient is on hemodialysis. ID consult (9) Ischemic bowel disease Current Visit: Yes Status: Acute Plan to address problem: Patient with Crohn's disease. Has some abdominal pain when patient tries to eat and takes TPN that is why she is refusing TPN. (10) Severe Sepsis (11) Full code status Current Visit: No Status: Acute Daily clinical course: 03/16/21: Hemoglobin 6.0 this morning, continue to transfuse. Monitor H&H carefully while patient on heparin drip. Noted general surgery and IR recommendation. Will consult GI for pancreatic pseudocyst. Continue to follow clinically with supportive care. Blood culture growing yeast we'll also add fluconazole. 03/17/21: Patient receiving hemodialysis, BP appears to be stable, continue empiric antibiotic. Follow ID and GI recommendation. Per general surgery no intervention required for pancreatic pseudocyst. If patient condition return to BX may need to transfer to tertiary center for possible drainage. 03/18/21: Continue empiric antibiotics, hemodialysis per nephrology. Continue TPN. Patient H&H remained stable, continue to follow BMP. Transfer out of IM to telemetry. 03/19/21: Patient transferred to telemetry today. H&H remained stable. White count slightly elevated, will follow CBC. Repeat blood culture from 03/18/21 having no growth. Continue empiric antibiotics per ID and TPN. Discharge planning per general surgery and ID recommendation. Patient intermittently refusing care; counseled extensively he verbalized understanding and promised to follow hospital protocol and MD recommendations 10/21/20: Removed right-sided PermCath today per vascular as patient blood culture initially was positive for yeast. Continue empiric antibiotics per ID recommendation. Dialysis per nephrology. Continue TPN and follow BMP. Per ID: Due to fungemia, will need blood cultures to be negative at 5 days (03/23/2021) before new tunneled lines can be placed (Ok to place temporary ones if needed). 10/22/20; patient appears clinically stable, continue heparin drip and TPN. Patient last dialysis was on Saturday. Repeat blood culture need to be neg till for placing new PermCath for dialysis. Continue to monitor off dialysis. Final blood culture data and sensitivity is pending. 10/23/20: continue heparin drip and TPN. Patient last dialysis was on Saturday. Repeat blood culture need to be neg till for placing new PermCath for dialysis. Final blood culture data and sensitivity is pending. Planned to place permcath tomorrow by vascular if repeat blood cx remains neg. 03/23/2021. Patient very agitated today. This morning has refused heparin. Has refused all meds at this time. Unable to tell why. Not answering the question when I asked what can I do for you to assist you with your care. Patient is going to have hemodialysis catheter placed today. Patient has been 5 days without any goal for blood cultures. Multiple episodes in the past with bacteremia and fungemia. 03/24/2021 patient remains agitated today. Was dragging tube along the floor. Refused heparin again. Continue refuse medications not answering me at this time. Not as belligerent as yesterday but still noncompliant with treatment at this time. Discussion with case management/daughter. Agreed to go home. Patient will need PICC line for TPN. Will order PICC line anticipated discharge in a.m. Patient's much more stable today. Good conversation. Patient states he was just frustrated. Patient is excepting heparin now. Should be able to change to Eliquis upon discharge patient is not having any procedures. Plan will be to discharge home in a.m. after hemodialysis catheter and triple-lumen has been placed. Patient also has abdominal spasms and pain today. Patient has been eating and taking TPN when he does this he has abdominal pain and diarrhea. We will try short trial of Bentyl to see if this will help with abdominal spasms. 03/26: Although sometimes he refuses his TPN he aspirates very connected and is currently going. Still has some abdominal pain at his drain site. Could not ascertain if he is eating or not while waiting for nurse to review records and also discussed with the patient but he was not able to talk to me. We will continue to reevaluate. Continue drain management per surgeon. 03/27: Patient clinical stable, Permcath placement today, -ID following - Micafungin IV per ID w/ possible transition to high dose fluconazole pending sensitivites; IV vanc with HD to end today. Awaiting final input from ID and surgery in respect to discharge, still not clear if patient is tolerating any PO, nursing team to further evaluate. 03/28: Discussed with the surgeon and no further surgical eval needed, patient to continue on TPN and clear liquid diet and follow with Surgery outpatient. He is to continue on abx and antifungal till completion. Will switch back to Eliquis once the line is replaced Discussed with case management and awaiting Recertification for SNF 03/29: Awaiting PICC line placement otherwise continue current management. 03/30: Discussed with nursing staff today to go ahead and transfuse the patient 1 unit packed red blood cell. Discussed with case management about assisting with the OR schedule for vascular to be able to place the PICC line. Anticipate discharge in a.m. following procedure History Interval history: Patient seen and examined, patient reports improvement, tolerating some PO. Overnight he was confused requiring restraints. Hemoglobin was noted to be 6.7 and blood transfusion was ordered. Hospitalist Physical - Physical exam Narrative exam: General appearance: Present: no acute distress, - EENT Eyes: PERRL, EOM intact - Respiratory Respiratory effort: normal - Cardiovascular Rhythm: regular Heart Sounds: Present: S1 & S2. Absent: gallop, rub Extremities: pulses intact, No edema, normal color, Full ROM Tunnel catheter in place - Gastrointestinal General gastrointestinal: Present: soft, tender, non-distended, hypoactive bowel sounds, HARIS drain noted - Musculoskeletal Musculoskeletal: 1, strength equal bilaterally - Neurologic Neurologic: moves all extremities - Psychiatric Psychiatric: memory intact, FLAT mood/affect, intact judgment & insight - Constitutional Vitals: Temp Pulse Resp BP Pulse Ox 98.0 F 60 18 181/101 93 03/30/21 11:37 03/30/21 11:37 03/30/21 11:37 03/30/21 11:37 03/30/21 11:37 General appearance: Present: no acute distress, other (Agitated) Results - Labs CBC & Chem 7: 03/29/21 19:13 03/29/21 19:13 Labs: Laboratory Last Values WBC 11.9 K/mm3 (4.5-11.0) H 03/25/21 11:45 RBC 2.30 M/mm3 (3.65-5.03) L 03/25/21 11:45 Hgb 6.7 gm/dl (11.8-15.2) L 03/29/21 19:13 Hct 19.7 % (35.5-45.6) L* 03/29/21 19:13 MCV 93 fl (84-94) 03/25/21 11:45 MCH 30 pg (28-32) 03/25/21 11:45 MCHC 32 % (32-34) 03/25/21 11:45 RDW 18.2 % (13.2-15.2) H 03/25/21 11:45 Plt Count 195 K/mm3 (140-440) 03/29/21 19:13 Lymph % (Auto) 15.5 % (13.4-35.0) 03/23/21 05:20 Wallace % (Auto) 7.4 % (0.0-7.3) H 03/23/21 05:20 Eos % (Auto) 4.0 % (0.0-4.3) 03/23/21 05:20 Baso % (Auto) 0.8 % (0.0-1.8) 03/23/21 05:20 Lymph # (Auto) 1.0 K/mm3 (1.2-5.4) L 03/23/21 05:20 Wallace # (Auto) 0.5 K/mm3 (0.0-0.8) 03/23/21 05:20 Eos # (Auto) 0.3 K/mm3 (0.0-0.4) 03/23/21 05:20 Baso # (Auto) 0.1 K/mm3 (0.0-0.1) 03/23/21 05:20 Add Manual Diff Complete 03/17/21 05:57 Total Counted 100 03/17/21 05:57 Seg Neutrophils % 72.3 % (40.0-70.0) H 03/23/21 05:20 Seg Neuts % (Manual) 75.0 % (40.0-70.0) H 03/17/21 05:57 Band Neutrophils % 2.0 % 03/17/21 05:57 Lymphocytes % (Manual) 12.0 % (13.4-35.0) L 03/17/21 05:57 Reactive Lymphs % (Man) 1.0 % 03/15/21 11:23 Monocytes % (Manual) 5.0 % (0.0-7.3) 03/17/21 05:57 Eosinophils % (Manual) 6.0 % (0.0-4.3) H 03/17/21 05:57 Basophils % (Manual) 1.0 % (0.0-1.8) 03/16/21 07:45 Nucleated RBC % Not Reportable 03/17/21 05:57 Seg Neutrophils # 4.8 K/mm3 (1.8-7.7) 03/23/21 05:20 Seg Neutrophils # Man 6.5 K/mm3 (1.8-7.7) 03/17/21 05:57 Band Neutrophils # 0.2 K/mm3 03/17/21 05:57 Lymphocytes # (Manual) 1.0 K/mm3 (1.2-5.4) L 03/17/21 05:57 Abs React Lymphs (Man) 0.0 K/mm3 03/17/21 05:57 Monocytes # (Manual) 0.4 K/mm3 (0.0-0.8) 03/17/21 05:57 Eosinophils # (Manual) 0.5 K/mm3 (0.0-0.4) H 03/17/21 05:57 Basophils # (Manual) 0.0 K/mm3 (0.0-0.1) 03/17/21 05:57 Metamyelocytes # 0.0 K/mm3 03/17/21 05:57 Myelocytes # 0.0 K/mm3 03/17/21 05:57 Promyelocytes # 0.0 K/mm3 03/17/21 05:57 Blast Cells # 0.0 K/mm3 03/17/21 05:57 WBC Morphology Not Reportable 03/17/21 05:57 Hypersegmented Neuts Not Reportable 03/17/21 05:57 Hyposegmented Neuts Not Reportable 03/17/21 05:57 Hypogranular Neuts Not Reportable 03/17/21 05:57 Smudge Cells Not Reportable 03/17/21 05:57 Toxic Granulation Not Reportable 03/17/21 05:57 Toxic Vacuolation Not Reportable 03/17/21 05:57 Dohle Bodies Not Reportable 03/17/21 05:57 Pelger-Huet Anomaly Not Reportable 03/17/21 05:57 Lamar Rods Not Reportable 03/17/21 05:57 Platelet Estimate Consistent w auto 03/17/21 05:57 Clumped Platelets Not Reportable 03/17/21 05:57 Plt Clumps, EDTA Not Reportable 03/17/21 05:57 Large Platelets Not Reportable 03/17/21 05:57 Giant Platelets Rare 03/17/21 05:57 Platelet Satelliting Not Reportable 03/17/21 05:57 Plt Morphology Comment Not Reportable 03/17/21 05:57 RBC Morphology Not Reportable 03/17/21 05:57 Dimorphic RBCs Not Reportable 03/17/21 05:57 Polychromasia Not Reportable 03/17/21 05:57 Hypochromasia Few 03/17/21 05:57 Poikilocytosis Not Reportable 03/17/21 05:57 Anisocytosis Few 03/17/21 05:57 Microcytosis Not Reportable 03/17/21 05:57 Macrocytosis Not Reportable 03/17/21 05:57 Spherocytes Not Reportable 03/17/21 05:57 Pappenheimer Bodies Not Reportable 03/17/21 05:57 Sickle Cells Not Reportable 03/17/21 05:57 Target Cells Not Reportable 03/17/21 05:57 Tear Drop Cells Not Reportable 03/17/21 05:57 Ovalocytes Not Reportable 03/17/21 05:57 Helmet Cells Not Reportable 03/17/21 05:57 Washburn-[place] Bodies Not Reportable 03/17/21 05:57 Bryant Rings Not Reportable 03/17/21 05:57 Jenny Cells Not Reportable 03/17/21 05:57 Bite Cells Not Reportable 03/17/21 05:57 Crenated Cell Not Reportable 03/17/21 05:57 Elliptocytes Not Reportable 03/17/21 05:57 Acanthocytes (Spur) Not Reportable 03/17/21 05:57 Rouleaux Not Reportable 03/17/21 05:57 Hemoglobin C Crystals Not Reportable 03/17/21 05:57 Schistocytes Not Reportable 03/17/21 05:57 Malaria parasites Not Reportable 03/17/21 05:57 Lucas Bodies Not Reportable 03/17/21 05:57 Hem Pathologist Commnt No 03/17/21 05:57 PT 14.4 Sec. (12.2-14.9) 03/15/21 23:21 INR 1.07 (0.87-1.13) 03/15/21 23:21 APTT 29.7 Sec. (24.2-36.6) 03/15/21 23:21 Heparin Anti-Xa Level < 0.10 U.I./ml (0.3-0.7) L 03/30/21 09:41 ABG pH 7.367 (7.320-7.450) 03/15/21 12:54 POC ABG pCO2 28.5 mmHg (32.0-48.0) L 03/15/21 12:54 POC ABG pO2 62.8 mmHg (83-108) L 03/15/21 12:54 POC ABG HCO3 16.0 03/15/21 12:54 ABG O2 Saturation 89.9 (0-100) 03/15/21 12:54 POC ABG Base Excess -8.5 03/15/21 12:54 ABG Hemoglobin 6.3 (12.0-17.5) L 03/15/21 12:54 ABG Oxyhemoglobin 87.9 (94-98) L 03/15/21 12:54 ABG Methemoglobin 0.3 (0.0-1.5) 03/15/21 12:54 ABG Sodium 127.9 mmol/L (136.0-145.0) L 03/15/21 12:54 ABG Potassium 4.3 mmol/L (3.40-4.50) 03/15/21 12:54 ABG Chloride 100.0 mmol/L (98-107) 03/15/21 12:54 ABG Glucose 98 mg/dL (65-95) H 03/15/21 12:54 VBG pH 7.344 (7.320-7.420) 03/15/21 11:23 Carboxyhemoglobin 1.9 (0.5-1.5) H 03/15/21 12:54 FiO2 % 21.0 03/15/21 12:54 Sodium 134 mmol/L (137-145) L 03/29/21 19:13 Potassium 3.2 mmol/L (3.6-5.0) L 03/29/21 19:13 Chloride 99.0 mmol/L (98-107) 03/29/21 19:13 Carbon Dioxide 25 mmol/L (22-30) 03/29/21 19:13 Anion Gap 13 mmol/L 03/29/21 19:13 BUN 8 mg/dL (9-20) L 03/29/21 19:13 Creatinine 4.9 mg/dL (0.8-1.3) H 03/29/21 19:13 Estimated GFR 15 ml/min 03/29/21 19:13 BUN/Creatinine Ratio 2 % 03/29/21 19:13 Glucose 100 mg/dL (75-100) 03/29/21 19:13 POC Glucose 86 mg/dL (70-105) 03/30/21 11:33 Lactic Acid 0.80 mmol/L (0.7-2.0) 03/15/21 15:55 Calcium 8.2 mg/dL (8.4-10.2) L 03/29/21 19:13 Phosphorus 2.50 mg/dL (2.5-4.5) D 03/29/21 19:13 Magnesium 1.40 mg/dL (1.7-2.3) L 03/29/21 19:13 Total Bilirubin 0.90 mg/dL (0.1-1.2) 03/26/21 07:04 Direct Bilirubin 0.4 mg/dL (0-0.2) H 03/18/21 06:08 Indirect Bilirubin 0.9 mg/dL 03/18/21 06:08 AST 21 units/L (5-40) 03/26/21 07:04 ALT 34 units/L (7-56) 03/26/21 07:04 Alkaline Phosphatase 191 units/L (35-129) H 03/26/21 07:04 C-Reactive Protein 14.90 mg/dL (0.00-1.30) H 03/16/21 18:45 Total Protein 6.5 g/dL (6.3-8.2) 03/26/21 07:04 Albumin 3.5 g/dL (3.9-5) L 03/26/21 07:04 Albumin/Globulin Ratio 1.2 % 03/26/21 07:04 Triglycerides 76 mg/dL (2-149) 03/21/21 03:23 Lipase 41 units/L (13-60) 03/16/21 18:45 Arterial Blood Glucose 98 mg/dL (65-95) H 03/15/21 12:54 Urine Color Bernarda (Yellow) 03/16/21 14:45 Urine Turbidity Hazy (Clear) 03/16/21 14:45 Urine pH 5.0 (5.0-7.0) 03/16/21 14:45 Ur Specific Murdock 1.015 (1.003-1.030) 03/16/21 14:45 Urine Protein >500 mg/dL (Negative) 03/16/21 14:45 Urine Glucose (UA) Neg mg/dL (Negative) 03/16/21 14:45 Urine Ketones Neg mg/dL (Negative) 03/16/21 14:45 Urine Blood Lg (Negative) 03/16/21 14:45 Urine Nitrite Neg (Negative) 03/16/21 14:45 Urine Bilirubin Neg (Negative) 03/16/21 14:45 Urine Urobilinogen < 2.0 mg/dL (<2.0) 03/16/21 14:45 Ur Leukocyte Esterase Neg (Negative) 03/16/21 14:45 Urine WBC (Auto) 8.0 /HPF (0.0-6.0) H 03/16/21 14:45 Urine RBC (Auto) 3.0 /HPF (0.0-6.0) 03/16/21 14:45 U Epithel Cells (Auto) 1.0 /HPF (0-13.0) 03/16/21 14:45 Urine Mucus Few /HPF 03/16/21 14:45 Nasal Screen MRSA (PCR) Negative (Negative) 03/16/21 14:37 Random Vancomycin 13.6 ug/mL (0-40.0) 03/25/21 05:35 Coronavirus (PCR) Negative (Negative) 03/16/21 08:45 Hepatitis A IgM Ab Non-reactive (NonReactive) 03/15/21 15:55 Hep Bs Antigen Non-reactive (Negative) 03/15/21 15:55 Hep B Core IgM Ab Reactive (NonReactive) A 03/15/21 15:55 Hepatitis C Antibody Non-reactive (NonReactive) 03/15/21 15:55 Blood Type A POSITIVE 03/30/21 00:16 Antibody Screen Negative 03/30/21 00:16 Crossmatch See Detail 03/30/21 00:16 Jeffery/IV: Voiding Method Toilet Active Medications - Current Medications Current Medications: Generic Name Dose Route Start Last Admin Trade Name Freq PRN Reason Stop Dose Admin Acetaminophen 650 mg 03/15/21 19:31 03/17/21 20:29 Acetaminophen 325 Mg Tab PO 650 mg Q4H PRN Administration Pain MILD(1-3)/Fever >100.5/HULL Hydrocodone Bitart/Acetaminophen 7.5 mg 03/15/21 19:39 03/27/21 18:27 Hydrocodone/Acetaminophen [id number] Oral Liqd PO 7.5 mg Q6H PRN Administration Pain , Severe (7-10) Albuterol 2.5 mg 03/15/21 19:31 Albuterol 2.5 Mg/3 Ml Nebu IH Q4HRT PRN Shortness Of Breath Calcium Acetate 667 mg 03/16/21 10:00 03/30/21 11:02 Calcium Acetate 667 Mg Cap PO Not Given DAILY THOMAS Cholecalciferol 2,000 unit 03/16/21 10:00 03/30/21 11:02 Cholecalciferol (Vit D3) 1000 Unit (25 Mcg) Tab PO Not Given QDAY THOMAS Clonidine HCl 0.3 mg 03/28/21 10:00 03/28/21 10:19 Clonidine Tts 0.3 Mg/24 Hr Patch TD 0.3 mg Tu THOMAS Administration Dextrose 50 ml 03/15/21 19:46 Dextrose 50% In Water (25gm) 50 Ml Syringe IV Q30MIN PRN Hypoglycemia Protocol Dicyclomine HCl 10 mg 03/25/21 14:00 03/30/21 10:47 Dicyclomine 10 Mg/5 Ml Oral Liqd PO Not Given QID THOMAS Famotidine 10 mg 03/15/21 22:00 03/30/21 11:03 Famotidine 20 Mg/2 Ml Inj IV 10 mg BID THOMAS Administration Heparin Sodium (Porcine) 3,200 unit 03/15/21 17:16 03/17/21 14:35 Heparin 10,000 Units/10 Ml Vial 40 unit/kg (3200 unit) 3,200 unit IV Administration Q6H PRN Anti-Xa Assay<0.1 units/ml Hydralazine HCl 10 mg 03/22/21 10:05 03/25/21 23:19 Hydralazine 20 Mg/1 Ml Inj IV 10 mg Q30MIN PRN Administration Hypertension Hydromorphone HCl 0.5 mg 03/15/21 19:31 03/28/21 10:17 Hydromorphone 1 Mg/1 Ml Inj IV 0.5 mg Q3H PRN Administration Pain , Severe (7-10) Sodium Chloride 100 mls @ 999 mls/hr 03/15/21 16:00 Nacl 0.9% IV RYLAND PRN Hypotension Heparin Sodium/Sodium Chloride 25,000 unit in 500 mls @ 23 mls/hr 03/16/21 07:00 03/30/21 05:00 Heparin/ 0.45% Nacl-25,000 Unit/500 Ml IV 0 units/hr TITR THOMAS 0 mls/hr Titration Protocol 1,150 UNITS/HR Micafungin Sodium 100 mg/ 100 mls @ 100 mls/hr 03/16/21 19:00 03/29/21 21:46 Sodium Chloride IV 03/30/21 19:59 Not Given Q24H THOMAS Protocol Dextrose/Sodium Chloride 1,000 mls @ 42 mls/hr 03/20/21 16:00 03/27/21 18:30 D5ns IV 42 mls/hr DIRECT THOMAS Administration Metronidazole 500 mg in 100 mls @ 100 mls/hr 03/25/21 14:00 03/30/21 06:18 Flagyl 500 Mg/100 Ml IV 03/30/21 23:59 Not Given Q8H THOMAS Protocol Amino Acids/Electrolytes/Dextrose 1,800 mls @ 75 mls/hr 03/30/21 20:00 Tpn Adult IV 03/31/21 19:59 DAILY@2000 [facility] Protocol Insulin Human Regular 0 units 03/15/21 20:00 03/30/21 08:41 Insulin Regular, Human 100 Units/1 Ml SUB-Q Not Given Q6H THOMAS Protocol Morphine Sulfate 2 mg 03/15/21 19:31 03/16/21 13:27 Morphine 2 Mg/1 Ml Inj IV 2 mg Q4H PRN Administration Pain, Moderate (4-6) Ondansetron HCl 4 mg 03/15/21 19:31 03/25/21 10:34 Ondansetron 4 Mg/2 Ml Inj IV 4 mg Q8H PRN Administration Nausea And Vomiting Scopolamine 1 each 03/16/21 10:00 03/28/21 10:20 Scopolamine Transdermal Patch 72 Hr TD 1 each Q3D THOMAS Administration Sodium Chloride 10 ml 03/15/21 22:00 03/30/21 11:04 Sodium Chloride 0.9% 10 Ml Flush Syringe IV 10 ml BID THOMAS Administration Sodium Chloride 10 ml 03/15/21 20:31 Sodium Chloride 0.9% 10 Ml Flush Syringe IV PRN PRN LINE FLUSH Triamcinolone Acetonide 1 applic 03/22/21 12:00 03/30/21 11:03 Triamcinolone 0.1% Cream 15 Gm TP 1 applic DAILY THOMAS Administration Nutrition/Malnutrition Assess - Dietary Evaluation Nutrition/Malnutrition Findings: Nutrition Notes Start: 03/16/21 11:46 Freq: Status: Active Protocol: Document 03/30/21 10:37 (Rec: 03/30/21 10:42 [id number]) Nutrition Notes Initial or Follow up Reassessment Current Diagnosis CKD (stage V CKD),Hypertension ,Heart Failure Other Pertinent Diagnosis AMS, Fever, Pulmonary embolus Current Diet PPN at 75ml/hr + Cl liq Labs/Tests 03/29: Na 134 Mg 1.4 Pertinent Medications reviewed Height 5 ft 7 in Weight 72.6 kg [place] Body Weight (kg) 67.27 BMI 25.0 Weight Status Appropriate Subjective/Other Information PPN Day 13. Pt willing to accept PPN bag this evening. He states PPN and red broth give him diarrhea. Pt with INT . Burn Absent Trauma Absent GI Symptoms Other Current % PO Negligible #1 Nutrition Diagnosis Inadequate oral intake Diagnosis Progress(for reassessment Continues documentation) Is patient on ventilator? No Is Patient Ambulatory and/or Out of Bed No REE-([facility]-confined to bed) [phone] Calculation Used for Recommendations [facility] Additional Notes Pro needs >1.2g/kg: >87g/day Fluid needs 1-1.5L/day Nutrition Intervention Change Diet Order: Diet advancement when medically feasible Nutrition Support: Continue PPN at 75ml/hr: MVI, MTE 8.3% dextrose, 50mEq K, 8 mmol Phos, 10 mEq Mg. Osmolality: 844. Kcal 740 Protein (gm) 50 Carbohydrates (gm) 150 Fat (gm) 0 Fluid (mL) 1,800 Fiber (gm) 0 Goal #1 Meet needs as best as possible via PN Goal #2 Diet advancement Anticipated Discharge Needs: Unable to identify at this time Follow-Up By: 03/31/21 Additional Comments Labs in AM: BMP, Mg, Phos
--- NOTE | 2021-03-30 15:17 | Progress Note ---
Assessment and Plan Cultures: Blood culture 03/15/2021 growing Gwendolyn glabrata, Coag negative staph in multiple bottles 03/16/2021 urine culture: No growth 03/18/2021 blood culture: No growth Assessment: 61-year-old male with history of ESRD initially on PD, CHF, , Crohn's disease, CHF, gastroesophageal reflux disease, status post prolonged hospital complicated stay from 12/22/2020-02/21/2021 due to complicated small bowel obstruction with necrotic small bowel s/p small bowel resection and primary anastomosis, requiring right hemicolectomy on 01/03/2021, complicated with a Streptococcus bovis and Prevotella bacteremia on 12/22/2020, complicated with perforated anastomosis, s/p multiple surgeries readmitted on 03/15/2021 secondary to fever, hypoxia and altered mental status/somnolence: #Severe sepsis: likely secondary to candidemia. #Candidemia: present in several bottles of blood cultures. Likely due to intra- abdominal collection versus central line infection, patient had dialysis catheter as well as tunneled line, is on TPN. TTE without obvious vegetations on the valves. Lines removed 03/20/2021. #Coag negative staph bacteremia: Possibly due to central line infection. #Pancreatic pseudocyst vs intra-abdominal collection: CT with 6.6 x 3.3 x 4.8 cm pseudocyst could be source of candidemia. CRP 14.9. Lipase normal. #Complicated small bowel obstruction: with necrotic small bowel s/p small bowel resection and primary anastomosis, requiring right hemicolectomy on 01/03/2021, and multiple other surgeries and abx. #Acute pulmonary embolism: On anticoagulation. #Elevated LFTs: Likely secondary to sepsis/pancreatic pseudocyst more than acute hepatitis B infection. Patient noted to have hepatitis B core IgM positive ? False positive versus acute hepatitis B less likely. #ESRD on hemodialysis. Renally adjust antibiotics. #Acute encephalopathy: Likely secondary to sepsis. Improving. Recommendations: -Completing micafungin today. -due to TPN, he remains at risk of recurrent line infections -Hepatitis B DNA negative ID will sign off. Please call with questions or new infectious concerns. Andre Redding MD [facility], [place], [facility] ([facility]) O: [phone] F: [phone] Subjective Date of service: 03/30/21 Principal diagnosis: Hypoxia, fever Interval history: Afebrile, no changes. Objective - Exam Narrative Exam: Physical Exam: Constitutional: Alert, no distress Head, Ears, Nose: Normocephalic, atraumatic. External ears, nose normal Eyes: Conjunctivae/corneas clear. No icterus. Neck: Supple, no meningeal signs Cardiovascular: S1, S2 normal. Respiratory: Good air entry, clear to auscultation bilaterally GI: Soft, non-tender; bowel sounds normal. No peritoneal signs. Drain + Musculoskeletal: No pedal edema, no cyanosis. Right neck region dressings + . Left neck with new lines Skin: No rash or abscess Hem/Lymphatic: No palpable cervical or supraclavicular nodes. No lymphangitis Psych: no agitation Neurological: Awake, alert, answering questio - Constitutional Vitals: Vital Signs Temp Pulse Resp BP Pulse Ox 98.0 F 60 18 181/101 93 03/30/21 11:37 03/30/21 11:37 03/30/21 11:37 03/30/21 11:37 03/30/21 11:37 Temperature -Last 24 Hours Temperature 98.0 F Temperature 98.6 F Temperature 98.4 F Temperature 98.4 F Temperature 98.7 F Temperature 98.8 F Temperature 98.0 F - Labs CBC & Chem 7: 03/29/21 19:13 03/29/21 19:13 Labs: Abnormal lab results 03/29/21 03/29/21 03/30/21 Range/Units 19:13 19:13 00:16 Hgb 6.7 L (11.8-15.2) gm/dl Hct 19.7 L* (35.5-45.6) % Heparin Anti-Xa Level (0.3-0.7) U.I./ml Sodium 134 L (137-145) mmol/L Potassium 3.2 L (3.6-5.0) mmol/L BUN 8 L (9-20) mg/dL Creatinine 4.9 H (0.8-1.3) mg/dL Calcium 8.2 L (8.4-10.2) mg/dL Magnesium 1.40 L (1.7-2.3) mg/dL Crossmatch See Detail 03/30/21 Range/Units 09:41 Hgb (11.8-15.2) gm/dl Hct (35.5-45.6) % Heparin Anti-Xa Level < 0.10 L (0.3-0.7) U.I./ml Sodium (137-145) mmol/L Potassium (3.6-5.0) mmol/L BUN (9-20) mg/dL Creatinine (0.8-1.3) mg/dL Calcium (8.4-10.2) mg/dL Magnesium (1.7-2.3) mg/dL Crossmatch
[2021-03-30] MEDS ORDERED: TOTAL PARENTERAL NUTRITION 1,800 ML IV SCH (20:00)
[2021-03-30] MEDS: hydrALAZINE 20 MG/1 ML INJ IV PRN (20:37)
[2021-03-30] MEDS: MICAFUNGIN 100 MG in SODIUM CHLORIDE 0.9% 100 ML IV SCH (22:58)
[2021-03-31] MEDS: INSULIN REGULAR, HUMAN 100 UNITS/1 ML SUB-Q SCH ×3 (02:27→14:46)
[2021-03-31] MEDS: hydrALAZINE 20 MG/1 ML INJ IV PRN (05:18)
[2021-03-31 06:19] LABS: Hematocrit 24.9 % (35.5-45.6); Hemoglobin 8.5 gm/dl (11.8-15.2); Mean Corpuscular HGB Conc 34 % (32-34); Mean Corpuscular Volume 92 fl (84-94); Platelet Count 211 K/mm3 (140-440); Red Blood Count 2.69 M/mm3 (3.65-5.03); Red Cell Distribution Width 17.1 % (13.2-15.2)
[2021-03-31 06:34] LABS: Calcium 8.9 mg/dL (8.4-10.2)
[2021-03-31] MEDS ORDERED: MAGNESIUM SULFATE 2 GM in SODIUM CHLORIDE 0.9% 50 ML IV ONE (09:10)
[2021-03-31] MEDS: SCOPOLAMINE TRANSDERMAL PATCH 72 HR TD SCH (10:00)
[2021-03-31] MEDS: FAMOTIDINE 20 MG/2 ML INJ IV SCH (10:00)
[2021-03-31] MEDS: POTASSIUM CHLORIDE 10 MEQ 10 MEQ/100 ML BAG IV SCH ×2 (10:00→11:00)
[2021-03-31] MEDS: CHOLECALCIFEROL (VIT D3) 1000 UNIT (25 mcg) TAB PO SCH (10:00)
[2021-03-31] MEDS: CALCIUM ACETATE 667 MG CAP PO SCH (10:00)
[2021-03-31] MEDS ORDERED: MAGNESIUM SULFATE 2 GM/50 ML BAG IV ONE (10:00)
[2021-03-31] MEDS: DICYCLOMINE 10 MG/5 ML ORAL LIQD PO SCH ×3 (10:05→18:25)
--- NOTE | 2021-03-31 10:09 | Progress Note ---
Assessment and Plan Assessment and plan: 60-year-old male resident of [facility] with past history of congestive heart failure, hypertension, end-stage renal disease and Crohn's disease with extensive history of multiple abdominal surgeries for Small bowel obstruction/necrotic bowel, controlled anastomotic leak that is transitioning to a fistula presents to the ED with a chief complaint of fever hypoxemia acute respiratory failure. Patient received CT scan in the a.m. for work-up of hypoxemia and was found to have right sided pulmonary embolism. Patient was admitted placed on heparin drip. Patient was also complaining of some abdominal pain of which a CT scan of the abdomen and pelvis showed a 6 cm fluid collection between the stomach and the pancreas suggestive of a pancreatic pseudocyst. - Patient Problems (1) Elevated liver transaminase level Current Visit: Yes Status: Resolved Plan to address problem: Resolved. (2) Altered mental status Current Visit: Yes Status: Acute Plan to address problem: Encephalopathy has resolved. Patient is alert oriented x3. Angry and agitated today secondary to prolonged hospital stay and wants to go home. (3) Fever/she Current Visit: Yes Status: Acute Plan to address problem: Remains afebrile. (4) Pulmonary embolus Current Visit: Yes Status: Acute Plan to address problem: Patient pulmonary embolus. He has been refusing heparin. Now today he states that he is okay to use heparin. Plan would be upon discharge start patient on Eliquis for treatment for PE. He can swallow the pill. (5) CHF (congestive heart failure) Current Visit: No Status: Acute Qualifiers: Heart failure chronicity: chronic Plan to address problem: Fairly well compensated at this time. (6) ESRD (end stage renal disease) Current Visit: No Status: Acute Plan to address problem: Patient to received Vas-Cath placed Plan is to place a tunneled hemodialysis catheter and tunnel triple-lumen catheter so patient can receive dialysis and TPN on Saturday (7) Anemia- ABLA Current Visit: Yes Status: Acute Plan to address problem: Transfuse for H&H less than 7. (8) Hepatitis B core antibody positive Current Visit: Yes Status: Acute Plan to address problem: Supportive care Gentle fluid hydration since patient is on hemodialysis. ID consult (9) Ischemic bowel disease Current Visit: Yes Status: Acute Plan to address problem: Patient with Crohn's disease. Has some abdominal pain when patient tries to eat and takes TPN that is why she is refusing TPN. (10) Severe Sepsis (11) Full code status Current Visit: No Status: Acute Daily clinical course: 03/16/21: Hemoglobin 6.0 this morning, continue to transfuse. Monitor H&H carefully while patient on heparin drip. Noted general surgery and IR recommendation. Will consult GI for pancreatic pseudocyst. Continue to follow clinically with supportive care. Blood culture growing yeast we'll also add fluconazole. 03/17/21: Patient receiving hemodialysis, BP appears to be stable, continue empiric antibiotic. Follow ID and GI recommendation. Per general surgery no intervention required for pancreatic pseudocyst. If patient condition return to BX may need to transfer to tertiary center for possible drainage. 03/18/21: Continue empiric antibiotics, hemodialysis per nephrology. Continue TPN. Patient H&H remained stable, continue to follow BMP. Transfer out of IM to telemetry. 03/19/21: Patient transferred to telemetry today. H&H remained stable. White count slightly elevated, will follow CBC. Repeat blood culture from 03/18/21 having no growth. Continue empiric antibiotics per ID and TPN. Discharge planning per general surgery and ID recommendation. Patient intermittently refusing care; counseled extensively he verbalized understanding and promised to follow hospital protocol and MD recommendations 10/21/20: Removed right-sided PermCath today per vascular as patient blood culture initially was positive for yeast. Continue empiric antibiotics per ID recommendation. Dialysis per nephrology. Continue TPN and follow BMP. Per ID: Due to fungemia, will need blood cultures to be negative at 5 days (03/23/2021) before new tunneled lines can be placed (Ok to place temporary ones if needed). 10/22/20; patient appears clinically stable, continue heparin drip and TPN. Patient last dialysis was on Saturday. Repeat blood culture need to be neg till for placing new PermCath for dialysis. Continue to monitor off dialysis. Final blood culture data and sensitivity is pending. 10/23/20: continue heparin drip and TPN. Patient last dialysis was on Saturday. Repeat blood culture need to be neg till for placing new PermCath for dialysis. Final blood culture data and sensitivity is pending. Planned to place permcath tomorrow by vascular if repeat blood cx remains neg. 03/23/2021. Patient very agitated today. This morning has refused heparin. Has refused all meds at this time. Unable to tell why. Not answering the question when I asked what can I do for you to assist you with your care. Patient is going to have hemodialysis catheter placed today. Patient has been 5 days without any goal for blood cultures. Multiple episodes in the past with bacteremia and fungemia. 03/24/2021 patient remains agitated today. Was dragging tube along the floor. Refused heparin again. Continue refuse medications not answering me at this time. Not as belligerent as yesterday but still noncompliant with treatment at this time. Discussion with case management/daughter. Agreed to go home. Patient will need PICC line for TPN. Will order PICC line anticipated discharge in a.m. Patient's much more stable today. Good conversation. Patient states he was just frustrated. Patient is excepting heparin now. Should be able to change to Eliquis upon discharge patient is not having any procedures. Plan will be to discharge home in a.m. after hemodialysis catheter and triple-lumen has been placed. Patient also has abdominal spasms and pain today. Patient has been eating and taking TPN when he does this he has abdominal pain and diarrhea. We will try short trial of Bentyl to see if this will help with abdominal spasms. 03/26: Although sometimes he refuses his TPN he aspirates very connected and is currently going. Still has some abdominal pain at his drain site. Could not ascertain if he is eating or not while waiting for nurse to review records and also discussed with the patient but he was not able to talk to me. We will cont inue to reevaluate. Continue drain management per surgeon. 2: Patient clinical stable, Permcath placement today, -ID following - Micafungin IV per ID w/ possible transition to high dose fluconazole pending sensitivites; IV vanc with HD to end today. Awaiting final input from ID and surgery in respect to discharge, still not clear if patient is tolerating any PO, nursing team to further evaluate. 3: Discussed with the surgeon and no further surgical eval needed, patient to continue on TPN and clear liquid diet and follow with Surgery outpatient. He is to continue on abx and antifungal till completion. Will switch back to Eliquis once the line is replaced Discussed with case management and awaiting Recertification for SNF 03/29: Awaiting PICC line placement otherwise continue current management. 03/30: Discussed with nursing staff today to go ahead and transfuse the patient 1 unit packed red blood cell. Discussed with case management about assisting with the OR schedule for vascular to be able to place the PICC line. Anticipate discharge in a.m. following procedure 03/31: Patient for HD today, awaiting vascular to replace lines. Patient had good response to H/H from blood transfusion. Patient completing antifungal today and as he advances his diet will be weaned off TPN. FOR NOW CONTINUE TPN and will be discharged to the SNF if vascular procedure completed today. Case management following. History Interval history: Patient seen and examined, patient reports improvement, tolerating some PO. FOR HD TODAY Hospitalist Physical - Physical exam Narrative exam: General appearance: Present: no acute distress, - EENT Eyes: PERRL, EOM intact - Respiratory Respiratory effort: normal - Cardiovascular Rhythm: regular Heart Sounds: Present: S1 & S2. Absent: gallop, rub Extremities: pulses intact, No edema, normal color, Full ROM Tunnel catheter in place - Gastrointestinal General gastrointestinal: Present: soft, tender, non-distended, hypoactive bowel sounds, HARIS drain noted - Musculoskeletal Musculoskeletal: 1, strength equal bilaterally - Neurologic Neurologic: moves all extremities - Psychiatric Psychiatric: memory intact, FLAT mood/affect, intact judgment & insight - Constitutional Vitals: Temp Pulse Resp BP Pulse Ox 98.4 F 67 18 186/107 95 03/31/21 04:25 03/31/21 05:18 03/31/21 04:25 03/31/21 05:18 03/31/21 04:25 General appearance: Present: no acute distress, other (Agitated) Results - Labs CBC & Chem 7: 03/31/21 05:56 03/31/21 05:56 Labs: Laboratory Last Values WBC 5.8 K/mm3 (4.5-11.0) 03/31/21 05:56 RBC 2.69 M/mm3 (3.65-5.03) L 03/31/21 05:56 Hgb 8.5 gm/dl (11.8-15.2) L 03/31/21 05:56 Hct 24.9 % (35.5-45.6) L 03/31/21 05:56 MCV 92 fl (84-94) 03/31/21 05:56 MCH 32 pg (28-32) 03/31/21 05:56 MCHC 34 % (32-34) 03/31/21 05:56 RDW 17.1 % (13.2-15.2) H 03/31/21 05:56 Plt Count 211 K/mm3 (140-440) 03/31/21 05:56 Lymph % (Auto) 15.5 % (13.4-35.0) 03/23/21 05:20 [place] % (Auto) 7.4 % (0.0-7.3) H 03/23/21 05:20 Eos % (Auto) 4.0 % (0.0-4.3) 03/23/21 05:20 Baso % (Auto) 0.8 % (0.0-1.8) 03/23/21 05:20 Lymph # (Auto) 1.0 K/mm3 (1.2-5.4) L 03/23/21 05:20 [place] # (Auto) 0.5 K/mm3 (0.0-0.8) 03/23/21 05:20 Eos # (Auto) 0.3 K/mm3 (0.0-0.4) 03/23/21 05:20 Baso # (Auto) 0.1 K/mm3 (0.0-0.1) 03/23/21 05:20 Add Manual Diff Complete 03/17/21 05:57 Total Counted 100 03/17/21 05:57 Seg Neutrophils % 72.3 % (40.0-70.0) H 03/23/21 05:20 Seg Neuts % (Manual) 75.0 % (40.0-70.0) H 03/17/21 05:57 Band Neutrophils % 2.0 % 03/17/21 05:57 Lymphocytes % (Manual) 12.0 % (13.4-35.0) L 03/17/21 05:57 Reactive Lymphs % (Man) 1.0 % 03/15/21 11:23 Monocytes % (Manual) 5.0 % (0.0-7.3) 03/17/21 05:57 Eosinophils % (Manual) 6.0 % (0.0-4.3) H 03/17/21 05:57 Basophils % (Manual) 1.0 % (0.0-1.8) 03/16/21 07:45 Nucleated RBC % Not Reportable 03/17/21 05:57 Seg Neutrophils # 4.8 K/mm3 (1.8-7.7) 03/23/21 05:20 Seg Neutrophils # Man 6.5 K/mm3 (1.8-7.7) 03/17/21 05:57 Band Neutrophils # 0.2 K/mm3 03/17/21 05:57 Lymphocytes # (Manual) 1.0 K/mm3 (1.2-5.4) L 03/17/21 05:57 Abs React Lymphs (Man) 0.0 K/mm3 03/17/21 05:57 Monocytes # (Manual) 0.4 K/mm3 (0.0-0.8) 03/17/21 05:57 Eosinophils # (Manual) 0.5 K/mm3 (0.0-0.4) H 03/17/21 05:57 Basophils # (Manual) 0.0 K/mm3 (0.0-0.1) 03/17/21 05:57 Metamyelocytes # 0.0 K/mm3 03/17/21 05:57 Myelocytes # 0.0 K/mm3 03/17/21 05:57 Promyelocytes # 0.0 K/mm3 03/17/21 05:57 Blast Cells # 0.0 K/mm3 03/17/21 05:57 WBC Morphology Not Reportable 03/17/21 05:57 Hypersegmented Neuts Not Reportable 03/17/21 05:57 Hyposegmented Neuts Not Reportable 03/17/21 05:57 Hypogranular Neuts Not Reportable 03/17/21 05:57 Smudge Cells Not Reportable 03/17/21 05:57 Toxic Granulation Not Reportable 03/17/21 05:57 Toxic Vacuolation Not Reportable 03/17/21 05:57 Dohle Bodies Not Reportable 03/17/21 05:57 Pelger-Huet Anomaly Not Reportable 03/17/21 05:57 Lamar Rods Not Reportable 03/17/21 05:57 Platelet Estimate Consistent w auto 03/17/21 05:57 Clumped Platelets Not Reportable 03/17/21 05:57 Plt Clumps, EDTA Not Reportable 03/17/21 05:57 Large Platelets Not Reportable 03/17/21 05:57 Giant Platelets Rare 03/17/21 05:57 Platelet Satelliting Not Reportable 03/17/21 05:57 Plt Morphology Comment Not Reportable 03/17/21 05:57 RBC Morphology Not Reportable 03/17/21 05:57 Dimorphic RBCs Not Reportable 03/17/21 05:57 Polychromasia Not Reportable 03/17/21 05:57 Hypochromasia Few 03/17/21 05:57 Poikilocytosis Not Reportable 03/17/21 05:57 Anisocytosis Few 03/17/21 05:57 Microcytosis Not Reportable 03/17/21 05:57 Macrocytosis Not Reportable 03/17/21 05:57 Spherocytes Not Reportable 03/17/21 05:57 Pappenheimer Bodies Not Reportable 03/17/21 05:57 Sickle Cells Not Reportable 03/17/21 05:57 Target Cells Not Reportable 03/17/21 05:57 Tear Drop Cells Not Reportable 03/17/21 05:57 Ovalocytes Not Reportable 03/17/21 05:57 Helmet Cells Not Reportable 03/17/21 05:57 [place] Bodies Not Reportable 03/17/21 05:57 [place] Rings Not Reportable 03/17/21 05:57 Jenny Cells Not Reportable 03/17/21 05:57 Bite Cells Not Reportable 03/17/21 05:57 Crenated Cell Not Reportable 03/17/21 05:57 Elliptocytes Not Reportable 03/17/21 05:57 Acanthocytes (Spur) Not Reportable 03/17/21 05:57 Rouleaux Not Reportable 03/17/21 05:57 Hemoglobin C Crystals Not Reportable 03/17/21 05:57 Schistocytes Not Reportable 03/17/21 05:57 Malaria parasites Not Reportable 03/17/21 05:57 Lucas Bodies Not Reportable 03/17/21 05:57 Hem Pathologist Commnt No 03/17/21 05:57 PT 14.4 Sec. (12.2-14.9) 03/15/21 23:21 INR 1.07 (0.87-1.13) 03/15/21 23:21 APTT 29.7 Sec. (24.2-36.6) 03/15/21 23:21 Heparin Anti-Xa Level 0.56 U.I./ml (0.3-0.7) 03/31/21 05:56 ABG pH 7.367 (7.320-7.450) 03/15/21 12:54 POC ABG pCO2 28.5 mmHg (32.0-48.0) L 03/15/21 12:54 POC ABG pO2 62.8 mmHg (83-108) L 03/15/21 12:54 POC ABG HCO3 16.0 03/15/21 12:54 ABG O2 Saturation 89.9 (0-100) 03/15/21 12:54 POC ABG Base Excess -8.5 03/15/21 12:54 ABG Hemoglobin 6.3 (12.0-17.5) L 03/15/21 12:54 ABG Oxyhemoglobin 87.9 (94-98) L 03/15/21 12:54 ABG Methemoglobin 0.3 (0.0-1.5) 03/15/21 12:54 ABG Sodium 127.9 mmol/L (136.0-145.0) L 03/15/21 12:54 ABG Potassium 4.3 mmol/L (3.40-4.50) 03/15/21 12:54 ABG Chloride 100.0 mmol/L (98-107) 03/15/21 12:54 ABG Glucose 98 mg/dL (65-95) H 03/15/21 12:54 VBG pH 7.344 (7.320-7.420) 03/15/21 11:23 Carboxyhemoglobin 1.9 (0.5-1.5) H 03/15/21 12:54 FiO2 % 21.0 03/15/21 12:54 Sodium 134 mmol/L (137-145) L 03/31/21 05:56 Potassium 3.7 mmol/L (3.6-5.0) 03/31/21 05:56 Chloride 97.1 mmol/L (98-107) L 03/31/21 05:56 Carbon Dioxide 24 mmol/L (22-30) 03/31/21 05:56 Anion Gap 17 mmol/L 03/31/21 05:56 BUN 19 mg/dL (9-20) 03/31/21 05:56 Creatinine 8.2 mg/dL (0.8-1.3) H D 03/31/21 05:56 Estimated GFR 8 ml/min 03/31/21 05:56 BUN/Creatinine Ratio 2 % 03/31/21 05:56 Glucose 91 mg/dL (75-100) 03/31/21 05:56 POC Glucose 91 mg/dL (70-105) 03/31/21 06:23 Lactic Acid 0.80 mmol/L (0.7-2.0) 03/15/21 15:55 Calcium 8.9 mg/dL (8.4-10.2) 03/31/21 05:56 Phosphorus 4.10 mg/dL (2.5-4.5) D 03/31/21 05:56 Magnesium 1.60 mg/dL (1.7-2.3) L 03/31/21 05:56 Total Bilirubin 0.90 mg/dL (0.1-1.2) 03/26/21 07:04 Direct Bilirubin 0.4 mg/dL (0-0.2) H 03/18/21 06:08 Indirect Bilirubin 0.9 mg/dL 03/18/21 06:08 AST 21 units/L (5-40) 03/26/21 07:04 ALT 34 units/L (7-56) 03/26/21 07:04 Alkaline Phosphatase 191 units/L (35-129) H 03/26/21 07:04 C-Reactive Protein 14.90 mg/dL (0.00-1.30) H 03/16/21 18:45 Total Protein 6.5 g/dL (6.3-8.2) 03/26/21 07:04 Albumin 3.5 g/dL (3.9-5) L 03/26/21 07:04 Albumin/Globulin Ratio 1.2 % 03/26/21 07:04 Triglycerides 76 mg/dL (2-149) 03/21/21 03:23 Lipase 41 units/L (13-60) 03/16/21 18:45 Arterial Blood Glucose 98 mg/dL (65-95) H 03/15/21 12:54 Urine Color [place] (Yellow) 03/16/21 14:45 Urine Turbidity Hazy (Clear) 03/16/21 14:45 Urine pH 5.0 (5.0-7.0) 03/16/21 14:45 Ur Specific [place] 1.015 (1.003-1.030) 03/16/21 14:45 Urine Protein >500 mg/dL (Negative) 03/16/21 14:45 Urine Glucose (UA) Neg mg/dL (Negative) 03/16/21 14:45 Urine Ketones Neg mg/dL (Negative) 03/16/21 14:45 Urine Blood Lg (Negative) 03/16/21 14:45 Urine Nitrite Neg (Negative) 03/16/21 14:45 Urine Bilirubin Neg (Negative) 03/16/21 14:45 Urine Urobilinogen < 2.0 mg/dL (<2.0) 03/16/21 14:45 Ur Leukocyte Esterase Neg (Negative) 03/16/21 14:45 Urine WBC (Auto) 8.0 /HPF (0.0-6.0) H 03/16/21 14:45 Urine RBC (Auto) 3.0 /HPF (0.0-6.0) 03/16/21 14:45 U Epithel Cells (Auto) 1.0 /HPF (0-13.0) 03/16/21 14:45 Urine Mucus Few /HPF 03/16/21 14:45 Nasal Screen MRSA (PCR) Negative (Negative) 03/16/21 14:37 Random Vancomycin 13.6 ug/mL (0-40.0) 03/25/21 05:35 Coronavirus (PCR) Negative (Negative) 03/16/21 08:45 Hepatitis A IgM Ab Non-reactive (NonReactive) 03/15/21 15:55 Hep Bs Antigen Non-reactive (Negative) 03/15/21 15:55 Hep B Core IgM Ab Reactive (NonReactive) A 03/15/21 15:55 Hepatitis C Antibody Non-reactive (NonReactive) 03/15/21 15:55 Blood Type A POSITIVE 03/30/21 00:16 Antibody Screen Negative 03/30/21 00:16 Crossmatch See Detail 03/30/21 00:16 Jeffery/IV: Voiding Method Toilet Active Medications - Current Medications Current Medications: Generic Name Dose Route Start Last Admin Trade Name Freq PRN Reason Stop Dose Admin Acetaminophen 650 mg 03/15/21 19:31 03/17/21 20:29 Acetaminophen 325 Mg Tab PO 650 mg Q4H PRN Administration Pain MILD(1-3)/Fever >100.5/HULL Hydrocodone Bitart/Acetaminophen 7.5 mg 03/15/21 19:39 03/27/21 18:27 Hydrocodone/Acetaminophen 7.2-300ac-65qd Oral Liqd PO 7.5 mg Q6H PRN Administration Pain , Severe (7-10) Albuterol 2.5 mg 03/15/21 19:31 Albuterol 2.5 Mg/3 Ml Nebu IH Q4HRT PRN Shortness Of Breath Calcium Acetate 667 mg 03/16/21 10:00 03/30/21 11:02 Calcium Acetate 667 Mg Cap PO Not Given DAILY [facility] Cholecalciferol 2,000 unit 03/16/21 10:00 03/30/21 11:02 Cholecalciferol (Vit D3) 1000 Unit (25 Mcg) Tab PO Not Given QDAY [facility] Clonidine HCl 0.3 mg 03/28/21 10:00 03/28/21 10:19 Clonidine Tts 0.3 Mg/24 Hr Patch TD 0.3 mg Tu [facility] Administration Dextrose 50 ml 03/15/21 19:46 Dextrose 50% In Water (25gm) 50 Ml Syringe IV Q30MIN PRN Hypoglycemia Protocol Dicyclomine HCl 10 mg 03/25/21 14:00 03/30/21 22:58 Dicyclomine 10 Mg/5 Ml Oral Liqd PO Not Given QID [facility] Famotidine 10 mg 03/15/21 22:00 03/30/21 22:57 Famotidine 20 Mg/2 Ml Inj IV 10 mg BID THOMAS Administration Heparin Sodium (Porcine) 3,200 unit 03/15/21 17:16 03/17/21 14:35 Heparin 10,000 Units/10 Ml Vial 40 unit/kg (3200 unit) 3,200 unit IV Administration Q6H PRN Anti-Xa Assay<0.1 units/ml Hydralazine HCl 10 mg 03/22/21 10:05 03/31/21 05:18 Hydralazine 20 Mg/1 Ml Inj IV 10 mg Q30MIN PRN Administration Hypertension Hydromorphone HCl 0.5 mg 03/15/21 19:31 03/28/21 10:17 Hydromorphone 1 Mg/1 Ml Inj IV 0.5 mg Q3H PRN Administration Pain , Severe (7-10) Sodium Chloride 100 mls @ 999 mls/hr 03/15/21 16:00 Nacl 0.9% IV [place] PRN Hypotension Heparin Sodium/Sodium Chloride 25,000 unit in 500 mls @ 23 mls/hr 03/16/21 07:00 03/31/21 06:51 Heparin/ 0.45% Nacl-25,000 Unit/500 Ml IV 1,850 units/hr TITR THOMAS 37 mls/hr Titration Protocol 1,150 UNITS/HR Dextrose/Sodium Chloride 1,000 mls @ 42 mls/hr 03/20/21 16:00 03/27/21 18:30 D5ns IV 42 mls/hr DIRECT THOMAS Administration Amino Acids/Electrolytes/Dextrose 1,800 mls @ 75 mls/hr 03/30/21 20:00 03/30/21 20:34 Tpn Adult IV 03/31/21 19:59 75 mls/hr DAILY@2000 THOMAS Administration Protocol Potassium Chloride 10 meq in 100 mls @ 100 mls/hr 03/31/21 10:00 Kcl 10meq/100ml IV 03/31/21 11:59 Q1H THOMAS Magnesium Sulfate 2 gm in 50 mls @ 25 mls/hr 03/31/21 10:00 Magnesium Sulfate 2gm/50ml IV 03/31/21 11:59 ONCE ONE Insulin Human Regular 0 units 03/15/21 20:00 03/31/21 02:27 Insulin Regular, Human 100 Units/1 Ml SUB-Q Not Given Q6H THOMAS Protocol Morphine Sulfate 2 mg 03/15/21 19:31 03/16/21 13:27 Morphine 2 Mg/1 Ml Inj IV 2 mg Q4H PRN Administration Pain, Moderate (4-6) Ondansetron HCl 4 mg 03/15/21 19:31 03/25/21 10:34 Ondansetron 4 Mg/2 Ml Inj IV 4 mg Q8H PRN Administration Nausea And Vomiting Scopolamine 1 each 03/16/21 10:00 03/28/21 10:20 Scopolamine Transdermal Patch 72 Hr TD 1 each Q3D THOMAS Administration Sodium Chloride 10 ml 03/15/21 22:00 03/30/21 22:57 Sodium Chloride 0.9% 10 Ml Flush Syringe IV 10 ml BID THOMAS Administration Sodium Chloride 10 ml 03/15/21 20:31 03/30/21 20:39 Sodium Chloride 0.9% 10 Ml Flush Syringe IV 10 ml PRN PRN Administration LINE FLUSH Triamcinolone Acetonide 1 applic 03/22/21 12:00 03/30/21 11:03 Triamcinolone 0.1% Cream 15 Gm TP 1 applic DAILY THOMAS Administration Nutrition/Malnutrition Assess - Dietary Evaluation Nutrition/Malnutrition Findings: Nutrition Notes Start: 03/16/21 11:46 Freq: Status: Active Protocol: Document 03/30/21 10:37 (Rec: 03/30/21 10:42 [email or web address]) Nutrition Notes Initial or Follow up Reassessment Current Diagnosis CKD (stage V CKD),Hypertension ,Heart Failure Other Pertinent Diagnosis AMS, Fever, Pulmonary embolus Current Diet PPN at 75ml/hr + Cl liq Labs/Tests 03/29: Na 134 Mg 1.4 Pertinent Medications reviewed Height 5 ft 7 in Weight 72.6 kg [place] Body Weight (kg) 67.27 BMI 25.0 Weight Status Appropriate Subjective/Other Information PPN Day 13. Pt willing to accept PPN bag this evening. He states PPN and red broth give him diarrhea. Pt with INT . Burn Absent Trauma Absent GI Symptoms Other Current % PO Negligible #1 Nutrition Diagnosis Inadequate oral intake Diagnosis Progress(for reassessment Continues documentation) Is patient on ventilator? No Is Patient Ambulatory and/or Out of Bed No REE-([facility]-confined to bed) [phone] Calculation Used for Recommendations [facility] Additional Notes Pro needs >1.2g/kg: >87g/day Fluid needs 1-1.5L/day Nutrition Intervention Change Diet Order: Diet advancement when medically feasible Nutrition Support: Continue PPN at 75ml/hr: MVI, MTE 8.3% dextrose, 50mEq K, 8 mmol Phos, 10 mEq Mg. Osmolality: 844. Kcal 740 Protein (gm) 50 Carbohydrates (gm) 150 Fat (gm) 0 Fluid (mL) 1,800 Fiber (gm) 0 Goal #1 Meet needs as best as possible via PN Goal #2 Diet advancement Anticipated Discharge Needs: Unable to identify at this time Follow-Up By: 03/31/21 Additional Comments Labs in AM: Mg KAREN, Delores
--- NOTE | 2021-03-31 12:45 | Progress Note ---
Assessment and Plan Assessment * End-stage renal disease on hemodialysis * Sepsis * Candidemia --Permcath removal - March 20, 2021 * Hypertension * Anemia secondary to ESRD * Secondary hyperparathyroidism * Pulmonary embolism Recommendations * Continue HD MWF, * UF as tolerated * New PermCath reinserted on 03/27/2021 * Surgery recommendations noted * Transfuse pRBC prn * ID notes appreciated - Micafungin treatment completed yesterday . ; IV vanc with HD now completeed * Epogen TIW prn * Continue antiHTN medications Subjective Date of service: 03/31/21 Principal diagnosis: Hypoxia, fever Interval history: Patient is currently undergoing dialysis. Currently on heparin drip. Tolerating well. Denies any shortness of breath. Objective - Vital Signs Vital signs: Vital Signs - 12hr 03/31/21 03/31/21 04:25 05:18 Temperature 98.4 F Pulse Rate 67 67 Respiratory 18 Rate Blood Pressure 186/107 186/107 O2 Sat by Pulse 95 Oximetry - General Appearance General appearance: well-developed, well-nourished, appears stated age EENT: PERRL, mucous membranes moist Neck: no JVD, no thyromegaly, no carotid bruit, supple, other (Right IJ PermCath in place) Respiratory: Present: Clear to Ascultation Cardiology: regular, normal heart rate, S1S2, no murmurs Gastrointestinal: normoactive bowel sounds, other (Drainage tube in place) Integumentary: other (No edema) - Lab 03/31/21 05:56 03/31/21 05:56 Most recent lab results ABG pH 7.367 (7.320-7.450) 03/15/21 12:54 ABG O2 Saturation 89.9 (0-100) 03/15/21 12:54 Calcium 8.9 mg/dL (8.4-10.2) 03/31/21 05:56 Phosphorus 4.10 mg/dL (2.5-4.5) D 03/31/21 05:56 Magnesium 1.60 mg/dL (1.7-2.3) L 03/31/21 05:56 Medications & Allergies - Medications Allergies/Adverse Reactions: Allergies No Known Allergies Allergy (Verified 06/09/20 15:27) Home Medications: Home Medications Medication Instructions Recorded Confirmed Last Taken Type Albuterol Mdi (or & Nicu Only) 2 puff IH QID PRN #1 inhalation 04/01/17 03/15/21 10/31/20 09:00 Rx [ProAir HFA Inhaler] Calcium Acetate 667 mg PO DAILY 04/20/20 03/15/21 10/31/20 09:00 History Centrum Men's Tablet 1 tab PO DAILY 04/20/20 03/15/21 10/31/20 09:00 History Cinacalcet 30 mg PO DAILY 04/20/20 03/15/21 10/31/20 09:00 History Dialyvite with Zinc Tablet 1 tab PO DAILY 04/20/20 03/15/21 10/31/20 09:00 History Magnesium 250 mg PO BID 04/20/20 03/15/21 10/31/20 17:00 History Triamcinolone 0.1% 1 1000units TRANSDERMA DAILY 04/20/20 03/15/21 10/31/20 09:00 History Vit B12/Folic Acid/B6/Aa No.15 1,000 mg PO DAILY 04/20/20 03/15/21 10/31/20 09:00 History AtorvaSTATin 40 mg PO HS 11/01/20 03/15/21 10/31/20 21:00 History Benadryl 25 mg PO HS 11/01/20 03/15/21 10/31/20 21:00 History Diclofenac 1 applic TRANSDERMA QID 11/01/20 03/15/21 10/31/20 19:00 History Vitamin D3 2,000 units PO QDAY 11/01/20 03/15/21 10/31/20 09:00 History carvediloL 12.5 mg PO DAILY 11/01/20 03/15/21 10/31/20 09:00 History Fluticasone Propionate 1 spray INTRANASAL DAILY #1 02/21/21 03/15/21 Unknown Rx Insulin Glargine [Lantus VIAL] 5 units SUB-Q QHS #1 units 02/21/21 03/15/21 Unknown Rx Lispro Insulin [HumaLOG] See Protocol SUB-Q Q6HR #1 vial 02/21/21 03/15/21 Unknown Rx Scopolamine [Transderm-Scop] 1 each TD Q3D #10 patch 02/21/21 03/15/21 Unknown Rx Dicyclomine [Bentyl] 10 mg PO QID 10 Days oral.liqd 03/28/21 Unknown Rx HYDROcodone/ACETAMINOPHEN 15 ml PO Q6H PRN #150 ml 03/28/21 Unknown Rx [Hydrocodone-Acetamn 7.5-325/15] Micafungin 100 mg IV Q24H vial 03/28/21 Unknown Rx Total Parenteral Nutrition [TPN 3,000 ml IV DAILY@2000 ml 03/28/21 Unknown Rx Adult] Triamcinolone 0.1% [Kenalog 0.1% 1 applic TP DAILY #1 tube 03/28/21 Unknown Rx CREAM] cloNIDine-TTS PATCH [Catapres-Tts 0.3 mg TD Tu #4 patch 03/28/21 Unknown Rx 0.3mg Patch] Active Medications: Generic Name Dose Route Start Last Admin Trade Name Freq PRN Reason Stop Dose Admin Acetaminophen 650 mg 03/15/21 19:31 03/17/21 20:29 Acetaminophen 325 Mg Tab PO 650 mg Q4H PRN Administration Pain MILD(1-3)/Fever >100.5/HULL Hydrocodone Bitart/Acetaminophen 7.5 mg 03/15/21 19:39 03/27/21 18:27 Hydrocodone/Acetaminophen [id number] Oral Liqd PO 7.5 mg Q6H PRN Administration Pain , Severe (7-10) Albuterol 2.5 mg 03/15/21 19:31 Albuterol 2.5 Mg/3 Ml Nebu IH Q4HRT PRN Shortness Of Breath Calcium Acetate 667 mg 03/16/21 10:00 03/30/21 11:02 Calcium Acetate 667 Mg Cap PO Not Given DAILY THOMAS Cholecalciferol 2,000 unit 03/16/21 10:00 03/30/21 11:02 Cholecalciferol (Vit D3) 1000 Unit (25 Mcg) Tab PO Not Given QDAY THOMAS Clonidine HCl 0.3 mg 03/28/21 10:00 03/28/21 10:19 Clonidine Tts 0.3 Mg/24 Hr Patch TD 0.3 mg Tu THOMAS Administration Dextrose 50 ml 03/15/21 19:46 Dextrose 50% In Water (25gm) 50 Ml Syringe IV Q30MIN PRN Hypoglycemia Protocol Dicyclomine HCl 10 mg 03/25/21 14:00 03/30/21 22:58 Dicyclomine 10 Mg/5 Ml Oral Liqd PO Not Given QID THOMAS Famotidine 10 mg 03/15/21 22:00 03/30/21 22:57 Famotidine 20 Mg/2 Ml Inj IV 10 mg BID THOMAS Administration Heparin Sodium (Porcine) 3,200 unit 03/15/21 17:16 03/17/21 14:35 Heparin 10,000 Units/10 Ml Vial 40 unit/kg (3200 unit) 3,200 unit IV Administration Q6H PRN Anti-Xa Assay<0.1 units/ml Hydralazine HCl 10 mg 03/22/21 10:05 03/31/21 05:18 Hydralazine 20 Mg/1 Ml Inj IV 10 mg Q30MIN PRN Administration Hypertension Hydromorphone HCl 0.5 mg 03/15/21 19:31 03/28/21 10:17 Hydromorphone 1 Mg/1 Ml Inj IV 0.5 mg Q3H PRN Administration Pain , Severe (7-10) Sodium Chloride 100 mls @ 999 mls/hr 03/15/21 16:00 Nacl 0.9% IV [place] PRN Hypotension Heparin Sodium/Sodium Chloride 25,000 unit in 500 mls @ 23 mls/hr 03/16/21 07:00 03/31/21 06:51 Heparin/ 0.45% Nacl-25,000 Unit/500 Ml IV 1,850 units/hr TITR THOMAS 37 mls/hr Titration Protocol 1,150 UNITS/HR Dextrose/Sodium Chloride 1,000 mls @ 42 mls/hr 03/20/21 16:00 03/27/21 18:30 D5ns IV 42 mls/hr DIRECT THOMAS Administration Amino Acids/Electrolytes/Dextrose 1,800 mls @ 75 mls/hr 03/30/21 20:00 03/30/21 20:34 Tpn Adult IV 03/31/21 19:59 75 mls/hr DAILY@1999 [facility] Administration Protocol Fat Emulsion Intravenous 250 mls @ 21 mls/hr 03/31/21 20:00 Intralipid 20% IV 04/01/21 08:01 DAILY@1999 [facility] Amino Acids/Electrolytes/Dextrose 1,800 mls @ 75 mls/hr 03/31/21 20:00 Tpn Adult IV 04/01/21 19:59 DAILY@1999 [facility] Protocol Insulin Human Regular 0 units 03/15/21 20:00 03/31/21 02:27 Insulin Regular, Human 100 Units/1 Ml SUB-Q Not Given Q6H [facility] Protocol Morphine Sulfate 2 mg 03/15/21 19:31 03/16/21 13:27 Morphine 2 Mg/1 Ml Inj IV 2 mg Q4H PRN Administration Pain, Moderate (4-6) Ondansetron HCl 4 mg 03/15/21 19:31 03/25/21 10:34 Ondansetron 4 Mg/2 Ml Inj IV 4 mg Q8H PRN Administration Nausea And Vomiting Scopolamine 1 each 03/16/21 10:00 03/28/21 10:20 Scopolamine Transdermal Patch 72 Hr TD 1 each Q3D THOMAS Administration Sodium Chloride 10 ml 03/15/21 22:00 03/30/21 22:57 Sodium Chloride 0.9% 10 Ml Flush Syringe IV 10 ml BID THOMAS Administration Sodium Chloride 10 ml 03/15/21 20:31 03/30/21 20:39 Sodium Chloride 0.9% 10 Ml Flush Syringe IV 10 ml PRN PRN Administration LINE FLUSH Triamcinolone Acetonide 1 applic 03/22/21 12:00 03/30/21 11:03 Triamcinolone 0.1% Cream 15 Gm TP 1 applic DAILY THOMAS Administration
--- NOTE | 2021-03-31 12:54 | Discharge Summary ---
Providers - Providers Date of Admission: 03/15/21 19:34 Attending physician: JOHN PLATT MD 03/15/21 14:10 Consult to Physician [CONS] Urgent Comment: Consulting Provider: MÓNICA JC Physician Instructions: Reason For Exam: ESRD, will need hemodialysis. Given IV contrast 03/15/21 19:43 Consult to Physician [CONS] Routine Comment: Consulting Provider: ANITA FAULKNER Physician Instructions: Reason For Exam: hep B core 03/15/21 19:44 Consult to Physician [CONS] Routine Comment: Consulting Provider: LAXMI OLSON Physician Instructions: Reason For Exam: abd pain 03/16/21 13:12 Consult to Dietitian/Nutrition [CONS] Routine Physician Instructions: Reason For Exam: Reason for Consult: NPO due to leak at anastamosis 03/16/21 15:58 Consult to Physician [CONS] Routine Comment: called office/ lacho Consulting Provider: CHUY HAAS Physician Instructions: Reason For Exam: Pancreatic pseudocyst 03/20/21 08:00 Consult to Physician [CONS] Routine Comment: Consulting Provider: LAXMI CHISHOLM Physician Instructions: Please wait until after HD on Saturday for removal Reason For Exam: Permcath removal 03/20/21 11:40 Physical Therapy Evaluation and Treat [CONS] Urgent Comment: Reason For Exam: PT to eval and treat 03/20/21 11:41 Occupational Therapy Evaluate and Treat [CONS] Urgent Comment: Reason For Exam: OT to eval and treat 03/24/21 14:40 Consult to PICC Line RN [CONS] Routine Reason For Exam: tpn Type Line:: PICC Primary care physician: PURIFICATION OPERATOR Hospitalization Reason for admission: ischemic bowel Condition: Fair Hospital course: 60-year-old male resident of [facility] with past history of congestive heart failure, hypertension, end-stage renal disease and Crohn's disease with extensive history of multiple abdominal surgeries for Small bowel obstruction/necrotic bowel, controlled anastomotic leak that is transitioning to a fistula presents to the ED with a chief complaint of fever hypoxemia acute respiratory failure. Patient received CT scan in the a.m. for work-up of hypoxemia and was found to have right sided pulmonary embolism. Patient was admitted placed on heparin drip. Patient was also complaining of some abdominal pain of which a CT scan of the abdomen and pelvis showed a 6 cm fluid collection between the stomach and the pancreas suggestive of a pancreatic pseudocyst. - Patient Problems (1) Elevated liver transaminase level Current Visit: Yes Status: Resolved Plan to address problem: Resolved. (2)Encephalopathy-Metabolic Current Visit: Yes Status: Acute Plan to address problem: Encephalopathy has resolved. Patient is alert oriented x3. Angry and agitated today secondary to prolonged hospital stay and wants to go home. (3) Fever/she Current Visit: Yes Status: Acute Plan to address problem: Remains afebrile. (4) Pulmonary embolus Current Visit: Yes Status: Acute Plan to address problem: Patient pulmonary embolus. He has been refusing heparin. Now today he states that he is okay to use heparin. Plan would be upon discharge start patient on Eliquis for treatment for PE. He can swallow the pill. (5) CHF (congestive heart failure) Current Visit: No Status: Acute Qualifiers: Heart failure chronicity: chronic Plan to address problem: Fairly well compensated at this time. (6) ESRD (end stage renal disease) Current Visit: No Status: Acute Plan to address problem: Patient to received Vas-Cath placed Plan is to place a tunneled hemodialysis catheter and tunnel triple-lumen catheter so patient can receive dialysis and TPN on Saturday (7) Anemia- ABLA Current Visit: Yes Status: Acute Plan to address problem: Transfuse for H&H less than 7. (8) Hepatitis B core antibody positive Current Visit: Yes Status: Acute Plan to address problem: Supportive care Gentle fluid hydration since patient is on hemodialysis. ID consult (9) Ischemic bowel disease Current Visit: Yes Status: Acute Plan to address problem: Patient with Crohn's disease. Has some abdominal pain when patient tries to eat and takes TPN that is why she is refusing TPN. (10) Severe Sepsis (11) Full code status Current Visit: No Status: Acute Daily clinical course: 03/16/21: Hemoglobin 6.0 this morning, continue to transfuse. Monitor H&H carefully while patient on heparin drip. Noted general surgery and IR recommendation. Will consult GI for pancreatic pseudocyst. Continue to follow clinically with supportive care. Blood culture growing yeast we'll also add fluconazole. 03/17/21: Patient receiving hemodialysis, BP appears to be stable, continue empiric antibiotic. Follow ID and GI recommendation. Per general surgery no intervention required for pancreatic pseudocyst. If patient condition return to BX may need to transfer to tertiary center for possible drainage. 03/18/21: Continue empiric antibiotics, hemodialysis per nephrology. Continue TPN. Patient H&H remained stable, continue to follow BMP. Transfer out of [facility] to telemetry. 03/19/21: Patient transferred to telemetry today. H&H remained stable. White count slightly elevated, will follow CBC. Repeat blood culture from 03/18/21 having no growth. Continue empiric antibiotics per ID and TPN. Discharge planning per general surgery and ID recommendation. Patient intermittently refusing care; counseled extensively he verbalized understanding and promised to follow hospital protocol and MD recommendations 10/21/20: Removed right-sided PermCath today per vascular as patient blood culture initially was positive for yeast. Continue empiric antibiotics per ID recommendation. Dialysis per nephrology. Continue TPN and follow BMP. Per ID: Due to fungemia, will need blood cultures to be negative at 5 days (03/23/2021) before new tunneled lines can be placed (Ok to place temporary ones if needed). 10/22/20; patient appears clinically stable, continue heparin drip and TPN. Patient last dialysis was on Saturday. Repeat blood culture need to be neg till for placing new PermCath for dialysis. Continue to monitor off dialysis. Final blood culture data and sensitivity is pending. 10/23/20: continue heparin drip and TPN. Patient last dialysis was on Saturday. Repeat blood culture need to be neg till for placing new PermCath for dialysis. Final blood culture data and sensitivity is pending. Planned to place permcath tomorrow by vascular if repeat blood cx remains neg. 03/23/2021. Patient very agitated today. This morning has refused heparin. Has refused all meds at this time. Unable to tell why. Not answering the question when I asked what can I do for you to assist you with your care. Patient is going to have hemodialysis catheter placed today. Patient has been 5 days without any goal for blood cultures. Multiple episodes in the past with bacteremia and fungemia. 03/24/2021 patient remains agitated today. Was dragging tube along the floor. Refused heparin again. Continue refuse medications not answering me at this time. Not as belligerent as yesterday but still noncompliant with treatment at this time. Discussion with case management/daughter. Agreed to go home. Patient will need PICC line for TPN. Will order PICC line anticipated discharge in a.m. Patient's much more stable today. Good conversation. Patient states he was just frustrated. Patient is excepting heparin now. Should be able to change to Eliquis upon discharge patient is not having any procedures. Plan will be to discharge home in a.m. after hemodialysis catheter and triple-lumen has been placed. Patient also has abdominal spasms and pain today. Patient has been eating and taking TPN when he does this he has abdominal pain and diarrhea. We will try short trial of Bentyl to see if this will help with abdominal spasms. 8: Although sometimes he refuses his TPN he aspirates very connected and is currently going. Still has some abdominal pain at his drain site. Could not ascertain if he is eating or not while waiting for nurse to review records and also discussed with the patient but he was not able to talk to me. We will continue to reevaluate. Continue drain management per surgeon. 82: Patient clinical stable, Permcath placement today, -ID following - Micafungin IV per ID w/ possible transition to high dose fluconazole pending sensitivites; IV vanc with HD to end today. Awaiting final input from ID and surgery in respect to discharge, still not clear if patient is tolerating any PO, nursing team to further evaluate. 83: Discussed with the surgeon and no further surgical eval needed, patient to continue on TPN and clear liquid diet and follow with Surgery outpatient. He is to continue on abx and antifungal till completion. Will switch back to Eliquis once the line is replaced Discussed with case management and awaiting Recertification for SNF 84: Awaiting PICC line placement otherwise continue current management. 85: Discussed with nursing staff today to go ahead and transfuse the patient 1 unit packed red blood cell. Discussed with case management about assisting with the OR schedule for vascular to be able to place the PICC line. Anticipate discharge in a.m. following procedure 86: Patient for HD today, awaiting vascular to replace lines. Patient had good response to H/H from blood transfusion. Patient completing antifungal today and as he advances his diet will be weaned off TPN. FOR NOW CONTINUE TPN and will be discharged to the SNF if vascular procedure completed today. Case management following. Disposition: DC/TX-03 SNF W [facility] CERT Final Discharge Diagnosis (Prints w/discharge instructions): Ischemic bowel Time spent for discharge: 35 mins Core Measure Documentation - Palliative Care Palliative Care/ Comfort Measures: Not Applicable - Core Measures Any of the following diagnoses?: none Exam - Physical Exam Narrative exam: General appearance: Present: no acute distress, - EENT Eyes: PERRL, EOM intact - Respiratory Respiratory effort: normal - Cardiovascular Rhythm: regular Heart Sounds: Present: S1 & S2. Absent: gallop, rub Extremities: pulses intact, No edema, normal color, Full ROM Tunnel catheter in place - Gastrointestinal General gastrointestinal: Present: soft, tender, non-distended, hypoactive bowel sounds, HARIS drain noted - Musculoskeletal Musculoskeletal: 1, strength equal bilaterally - Neurologic Neurologic: moves all extremities - Psychiatric Psychiatric: memory intact, FLAT mood/affect, intact judgment & insight - Constitutional Vitals: Temp Pulse Resp BP Pulse Ox 98.4 F 67 18 186/107 95 03/31/21 04:25 03/31/21 05:18 03/31/21 04:25 03/31/21 05:18 03/31/21 04:25 Plan Activity: advance as tolerated, fall precautions Diet: other (Full liquid diet) Wound: per your surgeon's advice Special Instructions: record daily weights, record daily BP diary, record blood sugar diary, physical therapy, occupational therapy, home health RN Plan of Treatment: -The patient is discharged to [facility] facility, he will need to be maintained on TPN, do not advance diet past full liquids. He will need his drains emptied at a minimum once a day and recorded for overall maintenance and management of anastomotic leak. -Completed vancomycin -due to TPN, he remains at risk of recurrent line infections -Hepatitis B DNA negative Patient to continue TPN, clear liquid and keep Drain in place. Follow up with: LAXMI CHISHOLM MD [Staff Physician] - 7 Days JARROD MCKENNA MD [Staff Physician] - 7 Days LAXMI OLSON MD [Staff Physician] - 7 Days PRIMARY CARE, [Primary Care Provider] - 3-5 Days Prescriptions: Dicyclomine [Bentyl] 10 mg PO QID 10 Days oral.liqd cloNIDine-TTS PATCH [Catapres-Tts 0.3mg Patch] 0.3 mg TD Tu #4 patch HYDROcodone/ACETAMINOPHEN [Hydrocodone-Acetamn 7.5-325/15] 15 ml PO Q6H PRN #150 ml PRN Reason: Pain , Severe (7-10) Triamcinolone 0.1% [Kenalog 0.1% CREAM] 1 applic TP DAILY #1 tube
[2021-03-31] MEDS ORDERED: SODIUM CHLORIDE 0.9% 500 ML 500 ML IV SCH (13:00)
[2021-03-31] MEDS ORDERED: HEPARIN/NS 5000 UNIT/500ML 500 ML IR ONE (13:41)
[2021-03-31] MEDS ORDERED: HEPARIN 10,000 UNITS/10 ML VIAL ONE (13:41)
[2021-03-31] MEDS: MIDAZOLAM 2 MG/2 ML INJ ONE ×2 (14:00→14:06)
[2021-03-31] MEDS: LIDOCAINE (2%) 20 MG/1 ML VIAL 20 ML MDV INFILTRATI ONE ×2 (14:00→14:07)
[2021-03-31] MEDS: fentaNYL 100 MCG/2 ML INJ ONE ×2 (14:00→14:06)
[2021-03-31] MEDS ORDERED: ceFAZolin/Water 2 GM/20 ML 2 GM/20 ML SYRINGE IV ONE (14:03)
--- NOTE | 2021-03-31 14:46 | Operative Report ---
Operative Report Operative Report: Date of Procedure: 03/31/2021 Pre-operative Diagnosis: Bacteremia and Fungemia With Need for Long-Term Antibiotics Post-operative Diagnosis: Same Procedure(s): 1. Ultrasound-Guided Access Left Internal Jugular Vein 2. Placement of Tunneled Cuffed Bard 5 [place] [employer] PICC 3. Radiologic Supervision with Interpretation 4. Monitored Moderate Sedation (Total Anesthesia Time: 24 Minutes) Surgeon: Fredy Rojas M.D. [employer] Pressing Machine Operator: None Anesthesia: Local/Monitored Moderate Sedation Total Anesthesia Time: 24 Minutes EBL: Minimal Counts: Correct Complications: None Condition: Stable Findings: Proximal Left Internal Jugular Vein had acute thrombosis with complete occlusion. PICC line was placed with the distal tip in the right atrium and there was no evidence of pneumothorax at the completion of the case. Specimen: None Indication: The patient is a 60-year-old male who is on TPN and developed fungemia and bacteremia. He is in need of long-term dialysis access for prolonged antibiotics. He also requires long-term access for TPN until he is able to tolerate a regular diet. He requires placement of a tunneled PICC line for access. He was given the risk, benefits, and alternative procedures and consented to the procedure. Description of Procedure: The patient was brought to the [facility] and laid in supine position. After timeout was performed his left neck and chest were prepped and draped in normal sterile fashion. Ultrasound demonstrated the left internal jugular vein was acutely thrombosed however given his permacath on the right I felt that an attempt to cannulate the vein was necessary. I anesthetized the skin and soft tissue overlying the vein and made a small stab incision with an 11 blade. I used a 21-gauge micropuncture needle with ultrasound guidance to access the vein. I was able to advance the 0.018 micropuncture wire into the central venous system. I advanced the micropuncture sheath over the wire after removing the needle. I then advanced the 0.035 J-wire into the central venous system. I advanced a vertebral catheter over the wire and then exchanged the J-wire for a 0.018 wire. I anesthetized the presumed tract and made a small stab incision on the chest. I then marked the length of the vertebral catheter at the level of the skin in the neck and removed the catheter. I used this to cut my PICC line to length. I then connected the PICC line to the tunneler and tunneled it from the exit site on chest to the entry site on the neck. I advanced the peel-away sheath over the 0.018 wire and into the central venous system. I removed the dilator and wire and advanced the PICC line into the peel-away sheath after removing the tunnel. I advanced the PICC line into position with the distal tip in the right atrium and the peel-away the SafeSheath. Both ports easily aspirated and flushed. I secured the catheter in position with 3-0 Ethilon in interrupted fashion. I closed the neck incision with 4-0 Monocryl in interrupted subcuticular fashion. I then dressed the neck incision with Dermabond. The catheter was then dressed with a sterile dressing. Final fluoroscopy demonstrated the catheter was in adequate position with the distal tip in the right atrium and no evidence of pneumothorax. The patient tolerated the procedure well was transported back to his room in stable condition.
[2021-03-31] MEDS ORDERED: ONDANSETRON 4 MG/2 ML INJ ONE (14:52)
[2021-03-31] MEDS ORDERED: FAT EMULSIONS 20% 250 ML IV SCH (20:00)
[2021-03-31] MEDS ORDERED: TOTAL PARENTERAL NUTRITION 1,800 ML IV SCH (20:00)
[2021-03-31 20:36] VITALS: BP 146/83
== END 2021-03-31 22:10 | DRG 871 ==
LOC: ED 10:25 → IMCU 19:34 → 4A 03-20 00:13
PROVIDERS: ADMIT Internal Medicine; ATTEND Internal Medicine
PROC: 5A1D70Z Performance of Urinary Filtration, Intermittent, Less than 6 Hours Per Day (ICD-10-PCS; 2021-03-15)
PROC: 4A033R1 Measurement of Arterial Saturation, Peripheral, Percutaneous Approach (ICD-10-PCS; 2021-03-15)
PROC: 30233N1 Transfusion of Nonautologous Red Blood Cells into Peripheral Vein, Percutaneous Approach (ICD-10-PCS; 2021-03-16)
PROC: 5A1D70Z Performance of Urinary Filtration, Intermittent, Less than 6 Hours Per Day (ICD-10-PCS; 2021-03-17)
PROC: 0JPT3XZ Removal of Tunneled Vascular Access Device from Trunk Subcutaneous Tissue and Fascia, Percutaneous Approach (ICD-10-PCS; principal; 2021-03-20)
PROC: 5A1D70Z Performance of Urinary Filtration, Intermittent, Less than 6 Hours Per Day (ICD-10-PCS; 2021-03-20)
PROC: 02H633Z Insertion of Infusion Device into Right Atrium, Percutaneous Approach (ICD-10-PCS; 2021-03-23)
PROC: B5181ZA Fluoroscopy of Superior Vena Cava using Low Osmolar Contrast, Guidance (ICD-10-PCS; 2021-03-23)
PROC: B548ZZA Ultrasonography of Superior Vena Cava, Guidance (ICD-10-PCS; 2021-03-23)
PROC: 5A1D70Z Performance of Urinary Filtration, Intermittent, Less than 6 Hours Per Day (ICD-10-PCS; 2021-03-24)
PROC: 5A1D70Z Performance of Urinary Filtration, Intermittent, Less than 6 Hours Per Day (ICD-10-PCS; 2021-03-27)
PROC: 02H633Z Insertion of Infusion Device into Right Atrium, Percutaneous Approach (ICD-10-PCS; 2021-03-27)
PROC: B5181ZA Fluoroscopy of Superior Vena Cava using Low Osmolar Contrast, Guidance (ICD-10-PCS; 2021-03-27)
PROC: B548ZZA Ultrasonography of Superior Vena Cava, Guidance (ICD-10-PCS; 2021-03-27)
PROC: 5A1D70Z Performance of Urinary Filtration, Intermittent, Less than 6 Hours Per Day (ICD-10-PCS; 2021-03-29)
PROC: 5A1D70Z Performance of Urinary Filtration, Intermittent, Less than 6 Hours Per Day (ICD-10-PCS; 2021-03-31)
PROC: 02H633Z Insertion of Infusion Device into Right Atrium, Percutaneous Approach (ICD-10-PCS; 2021-03-31)
PROC: B5181ZA Fluoroscopy of Superior Vena Cava using Low Osmolar Contrast, Guidance (ICD-10-PCS; 2021-03-31)
PROC: B548ZZA Ultrasonography of Superior Vena Cava, Guidance (ICD-10-PCS; 2021-03-31)
DX: A41.9 Sepsis, unspecified organism (principal); I26.99 Other pulmonary embolism without acute cor pulmonale; N18.6 End stage renal disease; G93.41 Metabolic encephalopathy; B19.10 Unspecified viral hepatitis B without hepatic coma; K55.9 Vascular disorder of intestine, unspecified; K56.609 Unspecified intestinal obstruction, unspecified as to partial versus complete obstruction; I13.2 Hypertensive heart and chronic kidney disease with heart failure and with stage 5 chronic kidney disease, or end stage renal disease; N25.81 Secondary hyperparathyroidism of renal origin; K50.90 Crohn's disease, unspecified, without complications; D62 Acute posthemorrhagic anemia; R65.20 Severe sepsis without septic shock; K21.9 Gastro-esophageal reflux disease without esophagitis; G43.909 Migraine, unspecified, not intractable, without status migrainosus; D63.1 Anemia in chronic kidney disease; Z20.822 Contact with and (suspected) exposure to COVID-19; R74.01 Elevation of levels of liver transaminase levels; I50.9 Heart failure, unspecified; R09.02 Hypoxemia; E83.39 Other disorders of phosphorus metabolism; B37.9 Candidiasis, unspecified; Z99.2 Dependence on renal dialysis; Z90.49 Acquired absence of other specified parts of digestive tract; Z87.891 Personal history of nicotine dependence; Z79.01 Long term (current) use of anticoagulants
CPT/HCPCS: 36415; 36556; 36558; 71045; 71275; 74177; 77001; 80048; 80053; 80074; 80076; 80202; 81001; 82140; 82247; 82805; 82962; 83690; 83735; 84100; 84478; 85007; 85014; 85018; 85025; 85027; 85049; 85520; 85610; 85730; 86140; 86850; 86900; 86901; 86920; 87040; 87076; 87086; 87106; 87186; 87517; 87641; 93005; 93306; 93970; 94640; G0378; C1750; C1751; C1752; C1769; J0360; J0690; J1170; J1450; J1630; J1644; J2248; J2250; J2270; J2354; J2405; J2543; J2997; J3010; J3370; J7040; J7042; P9016; Q9967; U0003

== ENCOUNTER 2021-05-17 11:52 | Observation (INO) | payer MEDICARE ==
--- NOTE | 2021-05-17 12:35 | Emergency Department Report ---
ED General Adult HPI - General Chief complaint: Medical Clearance Stated complaint: NEEDS DIALYSIS Time Seen by Provider: 05/17/21 12:15 Source: patient Mode of arrival: Ambulatory Limitations: No Limitations - History of Present Illness Initial comments: Chief complaint: "I need dialysis. I need a bag." HPI: This is a 60-year-old male with history of end-stage renal disease, Crohn's disease, systolic heart failure, hypertension, atrial fibrillation, pulmonary embolism who presents emergency department. He needs hemodialysis. Last HD session 7 days ago on Saturday. 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 Patient had been receiving hemodialysis at [facility]. Patient no longer desires to be a regular nursing center. He desires to be dialyzed at [facility]. He also requests ostomy bag. He denies shortness of breath, denies weakness, denies fever denies generalized malaise. -: days(s) (Last dialysis 7 days ago) Improves with: none Worsens with: none Associated Symptoms: denies other symptoms - Related Data Home Medications Medication Instructions Recorded Confirmed Last Taken Calcium Acetate 667 mg PO DAILY 04/20/20 05/05/21 10/31/20 09:00 Centrum Men's Tablet 1 tab PO DAILY 04/20/20 05/05/21 10/31/20 09:00 Cinacalcet 30 mg PO DAILY 04/20/20 05/05/21 10/31/20 09:00 Dialyvite with Zinc Tablet 1 tab PO DAILY 04/20/20 05/05/21 10/31/20 09:00 Magnesium 250 mg PO BID 04/20/20 05/05/21 10/31/20 17:00 Triamcinolone 0.1% 1 1000units TRANSDERMA DAILY 04/20/20 05/05/21 10/31/20 09:00 Vit B12/Folic Acid/B6/Aa No.15 1,000 mg PO DAILY 04/20/20 05/05/21 10/31/20 09:00 AtorvaSTATin 40 mg PO HS 11/01/20 05/05/21 10/31/20 21:00 Benadryl 25 mg PO HS 11/01/20 05/05/21 10/31/20 21:00 Diclofenac 1 applic TRANSDERMA QID 11/01/20 05/05/21 10/31/20 19:00 Vitamin D3 2,000 units PO QDAY 11/01/20 05/05/21 10/31/20 09:00 carvediloL 12.5 mg PO DAILY 11/01/20 05/05/21 10/31/20 09:00 Previous Rx's Medication Instructions Recorded Last Taken Type Albuterol Mdi (or & Nicu Only) 2 puff IH QID PRN #1 inhalation 04/01/17 10/31/20 09:00 Rx [ProAir HFA Inhaler] Fluticasone Propionate 1 spray INTRANASAL DAILY #1 02/21/21 Unknown Rx Insulin Glargine [Lantus VIAL] 5 units SUB-Q QHS #1 units 02/21/21 Unknown Rx Lispro Insulin [HumaLOG] See Protocol SUB-Q Q6HR #1 vial 02/21/21 Unknown Rx Scopolamine [Transderm-Scop] 1 each TD Q3D #10 patch 02/21/21 Unknown Rx Dicyclomine [Bentyl] 10 mg PO QID 10 Days oral.liqd 03/28/21 Unknown Rx HYDROcodone/ACETAMINOPHEN 15 ml PO Q6H PRN #150 ml 03/28/21 Unknown Rx [Hydrocodone-Acetamn 7.5-325/15] Triamcinolone 0.1% [Kenalog 0.1% 1 applic TP DAILY #1 tube 03/28/21 Unknown Rx CREAM] cloNIDine-TTS PATCH [Catapres-Tts 0.3 mg TD Tu #4 patch 03/28/21 Unknown Rx 0.3mg Patch] Epoetin Maurice-Epbx 20,000 [Retacrit] 20,000 unit IV [place] PRN vial 05/11/21 Unknown Rx Famotidine [Pepcid] 20 mg PO QAM tablet 05/11/21 Unknown Rx dexAMETHasone [Decadron] 6 mg PO DAILY tablet 05/11/21 Unknown Rx Allergies Allergy/AdvReac Type Severity Reaction Status Date / Time No Known Allergies Allergy Verified 05/17/21 12:08 ED Review of Systems ROS: Stated complaint: NEEDS DIALYSIS Other details as noted in HPI Comment: All other systems reviewed and negative Constitutional: denies: chills, fever, malaise Respiratory: denies: cough, shortness of breath Gastrointestinal: denies: abdominal pain, nausea, vomiting Skin: denies: rash, lesions Neurological: denies: headache ED Past Medical Hx - Past Medical History Previous Medical History?: Yes Hx Hypertension: Yes Hx Heart Attack/AMI: No Hx Congestive Heart Failure: Yes (IN 2013) Hx Diabetes: No Hx Pulmonary Embolism: Yes (02/2021) Hx GERD: Yes Hx Renal Disease: Yes Hx Sickle Cell Disease: No Hx Headaches / Migraines: Yes Hx Seizures: No Hx Asthma: No Hx COPD: No Hx Dementia: No Hx HIV: No Additional medical history: Crohns - Surgical History Past Surgical History?: Yes Hx Cholecystectomy: Yes ([place] 1998) Hx Appendectomy: Yes ([place] 2007) - Social History Smoking Status: Former Smoker - Medications Home Medications: Home Medications Medication Instructions Recorded Confirmed Last Taken Type Albuterol Mdi (or & Nicu Only) 2 puff IH QID PRN #1 inhalation 04/01/17 05/05/21 10/31/20 09:00 Rx [ProAir HFA Inhaler] Calcium Acetate 667 mg PO DAILY 04/20/20 05/05/21 10/31/20 09:00 History Centrum Men's Tablet 1 tab PO DAILY 04/20/20 05/05/21 10/31/20 09:00 History Cinacalcet 30 mg PO DAILY 04/20/20 05/05/21 10/31/20 09:00 History Dialyvite with Zinc Tablet 1 tab PO DAILY 04/20/20 05/05/21 10/31/20 09:00 History Magnesium 250 mg PO BID 04/20/20 05/05/21 10/31/20 17:00 History Triamcinolone 0.1% 1 1000units TRANSDERMA DAILY 04/20/20 05/05/21 10/31/20 09:00 History Vit B12/Folic Acid/B6/Aa No.15 1,000 mg PO DAILY 04/20/20 05/05/21 10/31/20 09:00 History AtorvaSTATin 40 mg PO HS 11/01/20 05/05/21 10/31/20 21:00 History Benadryl 25 mg PO HS 11/01/20 05/05/21 10/31/20 21:00 History Diclofenac 1 applic TRANSDERMA QID 11/01/20 05/05/21 10/31/20 19:00 History Vitamin D3 2,000 units PO QDAY 0305/05/21 10/31/20 09:00 History carvediloL 12.5 mg PO DAILY 11/01/20 05/05/21 10/31/20 09:00 History Fluticasone Propionate 1 spray INTRANASAL DAILY #1 02/21/21 05/05/21 Unknown Rx Insulin Glargine [Lantus VIAL] 5 units SUB-Q QHS #1 units 02/21/21 05/05/21 Unknown Rx Lispro Insulin [HumaLOG] See Protocol SUB-Q Q6HR #1 vial 02/21/21 05/05/21 Unknown Rx Scopolamine [Transderm-Scop] 1 each TD Q3D #10 patch 02/21/21 05/05/21 Unknown Rx Dicyclomine [Bentyl] 10 mg PO QID 10 Days oral.liqd 03/28/21 05/05/21 Unknown Rx HYDROcodone/ACETAMINOPHEN 15 ml PO Q6H PRN #150 ml 03/28/21 05/05/21 Unknown Rx [Hydrocodone-Acetamn 7.5-325/15] Triamcinolone 0.1% [Kenalog 0.1% 1 applic TP DAILY #1 tube 03/28/21 05/05/21 Unknown Rx CREAM] cloNIDine-TTS PATCH [Catapres-Tts 0.3 mg TD Tu #4 patch 03/28/21 05/05/21 Unknown Rx 0.3mg Patch] Epoetin Maurice-Epbx 20,000 [Retacrit] 20,000 unit IV [place] PRN vial 05/11/21 Unkno wn Rx Famotidine [Pepcid] 20 mg PO QAM tablet 05/11/21 Unknown Rx dexAMETHasone [Decadron] 6 mg PO DAILY tablet 05/11/21 Unknown Rx ED Physical Exam - General Limitations: No Limitations General appearance: alert, in no apparent distress - Head Head exam: Present: atraumatic, normocephalic - Eye Eye exam: Present: normal appearance - ENT ENT exam: Present: mucous membranes moist - Neck Neck exam: Present: normal inspection, full ROM - Respiratory Respiratory exam: Present: normal lung sounds bilaterally. Absent: respiratory distress, wheezes, rales, rhonchi - Cardiovascular Cardiovascular Exam: Present: regular rate, normal rhythm, normal heart sounds. Absent: rubs, gallop - GI/Abdominal GI/Abdominal exam: Present: soft, normal bowel sounds. Absent: distended, tenderness, guarding, rebound - Rectal Rectal exam: Present: deferred - Extremities Exam Extremities exam: Present: normal inspection - Neurological Exam Neurological exam: Present: alert, oriented X3 - Psychiatric Psychiatric exam: Present: normal affect, normal mood - Skin Skin exam: Present: warm, dry, intact, normal color. Absent: rash ED Course Vital Signs 05/17/21 12:13 Temperature 98.2 F Pulse Rate 62 Respiratory 18 Rate Blood Pressure 96/65 O2 Sat by Pulse 97 Oximetry ED Medical Decision Making - Lab Data Result diagrams: 05/17/21 12:43 05/17/21 12:43 - EKG Data EKG shows normal: sinus rhythm, axis, intervals Rate: normal - EKG Data Interpretation: nonspecific ST-T wave ketty, LVH 05/17/21 15:06 EKG obtained 1455 EKG interpreted by me Rate 85 bpm normal sinus rhythm normal axis normal QTC prolonged [place] interval positive LVH no significant ST elevation - Medical Decision Making End-stage renal disease on hemodialysis noncompliance due to social circumstances and patient's discretion. Patient has uremic complications of metabolic acidosis and elevated BUN. Patient will be admitted to the hospital service. Nephrology service consulted. Critical care attestation.: If time is entered above; I have spent that time in minutes in the direct care of this critically ill patient, excluding procedure time. ED Disposition Clinical Impression: End-stage renal disease on hemodialysis, Metabolic acidosis, Uremia of renal origin Disposition: ADMITTED INPATIENT Is pt being admited?: Yes Does the pt Need Aspirin: No Condition: Stable
[2021-05-17 13:21] LABS: Calcium 9.6 mg/dL (8.4-10.2)
[2021-05-17 14:45] LABS: Basophils % (Auto) 0.5 % (0.0-1.8); Eosinophils # (Auto) 0.2 K/mm3 (0.0-0.4); Eosinophils % (Auto) 1.7 % (0.0-4.3); Hematocrit 29.7 % (35.5-45.6); Hemoglobin 9.8 gm/dl (11.8-15.2); Lymphocytes # (Auto) 0.8 K/mm3 (1.2-5.4); Lymphocytes % (Auto) 8.7 % (13.4-35.0); Mean Corpuscular HGB Conc 33 % (32-34); Mean Corpuscular Volume 96 fl (84-94); Monocytes # (Auto) 0.9 K/mm3 (0.0-0.8); Monocytes % (Auto) 10.2 % (0.0-7.3); Platelet Count 313 K/mm3 (140-440); Red Blood Count 3.09 M/mm3 (3.65-5.03); Red Cell Distribution Width 18.2 % (13.2-15.2)
[2021-05-17] MEDS ORDERED: METOCLOPRAMIDE 10 MG/2 ML INJ IV PRN (17:30)
[2021-05-17] MEDS ORDERED: oxyCODONE /ACETAMINOPHEN 5-325MG TAB PO PRN (17:30)
[2021-05-17] MEDS ORDERED: HYDROmorphone 1 MG/1 ML INJ IV PRN (17:30)
[2021-05-17] MEDS ORDERED: ACETAMINOPHEN 325 MG TAB PO PRN (17:30)
[2021-05-17] MEDS ORDERED: ALBUTEROL 8.5 GM MDI INHALATION IH PRN (17:32)
[2021-05-17] MEDS ORDERED: NON-FORMULARY EACH (Carvedilol 12.5 MG) PO SCH (17:45)
[2021-05-17] MEDS ORDERED: NON-FORMULARY EACH (Calcium Acetate [Calcium Acetate] 667 MG Tablet) PO SCH (17:45)
[2021-05-17] MEDS ORDERED: NON-FORMULARY EACH (Cinacalcet 30 MG) PO SCH (17:45)
[2021-05-17] MEDS ORDERED: DICLOFENAC TRANSDERMA SCH (18:00)
[2021-05-17] MEDS ORDERED: ALBUTEROL 2.5 MG/3 ML NEBU IH PRN (18:17)
[2021-05-17] MEDS ORDERED: diphenhydrAMINE 25 MG CAP PO SCH (22:00)
[2021-05-17] MEDS ORDERED: MAGNESIUM 250 MG PO SCH (22:00)
[2021-05-17] MEDS ORDERED: BENADRYL 25 MG PO SCH (22:00)
[2021-05-17] MEDS ORDERED: INSULIN GLARGINE 100 UNITS/ML SUB-Q SCH (22:00)
[2021-05-17] MEDS ORDERED: NON-FORMULARY EACH (Atorvastatin 40 MG) PO SCH (22:00)
[2021-05-17] MEDS ORDERED: SODIUM CHLORIDE 0.9% 250ML 250 ML IV ONE (23:22)
[2021-05-17] MEDS: DICYCLOMINE 10 MG/5 ML ORAL LIQD PO SCH (23:53)
[2021-05-17] MEDS: FAMOTIDINE 10 MG TAB PO SCH (23:54)
[2021-05-17] MEDS: HEPARIN 5,000 UNIT/1 ML VIAL SUB-Q SCH (23:54)
[2021-05-17] MEDS: DICLOFENAC SODIUM 1% TOPICAL GEL 100 GM TP SCH (23:54)
[2021-05-18] MEDS: DICYCLOMINE 10 MG/5 ML ORAL LIQD PO SCH ×5 (00:37→17:40)
[2021-05-18] MEDS: INSULIN LISPRO 100 UNIT/ML SUB-Q SCH ×4 (00:37→16:49)
--- NOTE | 2021-05-18 06:15 | History and Physical Report ---
History of Present Illness Date of examination: 05/17/21 Date of admission: 05/17/21 15:07 Chief complaint: Shortness of breath for 1 day History of present illness: 60-year-old male with history of end-stage renal disease, Crohn's disease, hypertension, atrial fibrillation and insulin-dependent diabetes comes to the emergency room for shortness of breath and missing dialysis for 1 week. Patient is in [place] alf. Patient does not want to stay with alf. Wants to be dialyzed at [facility]. Patient also wants his ostomy bag to be replaced. Shortness of breath for 1 days. No chest pain. Severe generalized weakness present. - Past Medical History Previous Medical History?: Yes --Hypertension: Yes --Congestive Heart Failure: Yes ([place] 2013) --Pulmonary Embolism: Yes (02/2021) --GERD: Yes --Renal Disease: Yes --Headaches / Migraines: Yes Additional medical history: Crohns - Surgical History Past Surgical History?: Yes --Cholecystectomy: Yes ([place] 1998) ==Appendectomy: Yes ([place] 2007) - Social History Smoking Status: Former Smoker Review of Systems ROS: Stated complaint: NEEDS DIALYSIS Other details as noted in HPI Comment: All other systems reviewed and negative Constitutional: denies: chills, fever, malaise Respiratory: denies: cough, shortness of breath Gastrointestinal: denies: abdominal pain, nausea, vomiting Skin: denies: rash, lesions Neurological: denies: headache Medications and Allergies Allergies Allergy/AdvReac Type Severity Reaction Status Date / Time No Known Allergies Allergy Verified 05/17/21 12:08 Home Medications Medication Instructions Recorded Confirmed Last Taken Type Albuterol Mdi (or & Nicu Only) 2 puff IH QID PRN #1 inhalation 04/01/17 05/05/21 10/31/20 09:00 Rx [ProAir HFA Inhaler] Calcium Acetate 667 mg PO DAILY 04/20/20 05/05/21 10/31/20 09:00 History Centrum Men's Tablet 1 tab PO DAILY 04/20/20 05/05/21 10/31/20 09:00 History Cinacalcet 30 mg PO DAILY 04/20/20 05/05/21 10/31/20 09:00 History Dialyvite with Zinc Tablet 1 tab PO DAILY 08/2605/05/21 10/31/20 09:00 History Magnesium 250 mg PO BID 04/20/20 05/05/21 10/31/20 17:00 History Triamcinolone 0.1% 1 1000units TRANSDERMA DAILY 04/20/20 05/05/21 10/31/20 09:00 History Vit B12/Folic Acid/B6/Aa No.15 1,000 mg PO DAILY 04/20/20 05/05/21 10/31/20 09:00 History AtorvaSTATin 40 mg PO HS 11/01/20 05/05/21 10/31/20 21:00 History Benadryl 25 mg PO HS 11/01/20 05/05/21 10/31/20 21:00 History Diclofenac 1 applic TRANSDERMA QID 11/01/20 05/05/21 10/31/20 19:00 History Vitamin D3 2,000 units PO QDAY 11/01/20 05/05/21 10/31/20 09:00 History carvediloL 12.5 mg PO DAILY 11/01/20 05/05/21 10/31/20 09:00 History Fluticasone Propionate 1 spray INTRANASAL DAILY #1 02/21/21 05/05/21 Unknown Rx Insulin Glargine [Lantus VIAL] 5 units SUB-Q QHS #1 units 02/21/21 05/05/21 Unknown Rx Lispro Insulin [HumaLOG] See Protocol SUB-Q Q6HR #1 vial 02/21/21 05/05/21 Unknown Rx Scopolamine [Transderm-Scop] 1 each TD Q3D #10 patch 02/21/21 05/05/21 Unknown Rx Dicyclomine [Bentyl] 10 mg PO QID 10 Days oral.liqd 03/28/21 05/05/21 Unknown Rx HYDROcodone/ACETAMINOPHEN 15 ml PO Q6H PRN #150 ml 03/28/21 05/05/21 Unknown Rx [Hydrocodone-Acetamn 7.5-325/15] Triamcinolone 0.1% [Kenalog 0.1% 1 applic TP DAILY #1 tube 03/28/21 05/05/21 Unknown Rx CREAM] cloNIDine-TTS PATCH [Catapres-Tts 0.3 mg TD Tu #4 patch 03/28/21 05/05/21 Unknown Rx 0.3mg Patch] Epoetin Maurice-Epbx 20,000 [Retacrit] 20,000 unit IV [place] PRN vial 05/11/21 Unknown Rx Famotidine [Pepcid] 20 mg PO QAM tablet 05/11/21 Unknown Rx dexAMETHasone [Decadron] 6 mg PO DAILY tablet 05/11/21 Unknown Rx Active Meds: Active Medications Acetaminophen (Acetaminophen 325 Mg Tab) 650 mg PO Q4H PRN PRN Reason: Pain MILD(1-3)/Fever >100.5/HULL Albuterol (Albuterol 2.5 Mg/3 Ml Nebu) 2.5 mg IH Q4HRT PRN PRN Reason: Shortness Of Breath Atorvastatin Calcium (Atorvastatin 40 Mg Tab) 40 mg PO QHS [facility] Last Admin: 05/17/21 23:54 Dose: Not Given Documented by: Calcium Acetate (Calcium Acetate 667 Mg Cap) 667 mg PO DAILY [facility] Carvedilol (Carvedilol 12.5 Mg Tab) 12.5 mg PO DAILY [facility] Cinacalcet (Cinacalcet 30 Mg Tab) 30 mg PO QDAY [facility] Clonidine HCl (Clonidine Tts 0.3 Mg/24 Hr Patch) 0.3 mg TD Tu [facility] Dexamethasone (Dexamethasone 4 Mg Tab) 6 mg PO DAILY [facility] Diclofenac Sodium (Diclofenac Sodium 1% Topical Gel 100 Gm) 1 applic TP QID [facility] Last Admin: 05/17/21 23:54 Dose: Not Given Documented by: Dicyclomine HCl (Dicyclomine 10 Mg/5 Ml Oral Liqd) 10 mg PO QID [facility] Last Admin: 05/18/21 00:37 Dose: Not Given Documented by: Diphenhydramine HCl (Diphenhydramine 25 Mg Cap) 25 mg PO HS [facility] Last Admin: 05/17/21 23:54 Dose: Not Given Documented by: Famotidine (Famotidine 10 Mg Tab) 10 mg PO BID [facility] Last Admin: 05/17/21 23:54 Dose: Not Given Documented by: Fluticasone Propionate (Fluticasone Propionate Nasal [place] 16 Gm) 100 mcg NS QDAY [facility] Heparin Sodium (Porcine) (Heparin 5,000 Unit/1 Ml Vial) 5,000 unit SUB-Q Q12HR [facility] Last Admin: 05/17/21 23:54 Dose: Not Given Documented by: Hydromorphone HCl (Hydromorphone 1 Mg/1 Ml Inj) 0.5 mg IV Q3H PRN PRN Reason: Pain , Severe (7-10) Insulin Glargine (Insulin Glargine 100 Units/Ml) 5 units SUB-Q QHS [facility] Last Admin: 05/17/21 23:54 Dose: Not Given Documented by: Insulin Human Lispro (Insulin Lispro 100 Unit/Ml) 0 unit SUB-Q ACHS [facility]; Protocol Last Admin: 05/18/21 00:37 Dose: Not Given Documented by: Magnesium Oxide (Magnesium Oxide 400 Mg Tab) 400 mg PO QDAY [facility] Metoclopramide HCl (Metoclopramide 10 Mg/2 Ml Inj) 10 mg IV Q6H PRN PRN Reason: Nausea And Vomiting Multivit/Ca Carb/B Cmplx/FA/Prenat (Folic Acid/Vit B Comp W-C 1 Mg (Renal Caps)) 1 cap PO QDAY [facility] Ondansetron HCl (Ondansetron 4 Mg/2 Ml Inj) 4 mg IV Q8H PRN PRN Reason: Nausea And Vomiting Oxycodone/Acetaminophen (Oxycodone /Acetaminophen 5-325mg Tab) 1 tab PO Q6H PRN PRN Reason: Pain, Moderate (4-6) Scopolamine (Scopolamine Transdermal Patch 72 Hr) 1 each TD Q3D [facility] Sodium Chloride (Sodium Chloride 0.9% 10 Ml Flush Syringe) 10 ml IV BID [facility] Last Admin: 05/17/21 23:30 Dose: 10 ml Documented by: Sodium Chloride (Sodium Chloride 0.9% 10 Ml Flush Syringe) 10 ml IV PRN PRN PRN Reason: LINE FLUSH Exam - Constitutional Vitals: Temp Pulse Resp BP Pulse Ox 97.9 F 70 18 117/60 94 05/18/21 03:49 05/18/21 03:49 05/18/21 03:49 05/18/21 03:49 05/18/21 03:49 General appearance: Present: no acute distress, mild distress, cachectic, disheveled - EENT Eyes: Present: PERRL ENT: hearing intact, clear oral mucosa - Neck Neck: Present: supple, normal ROM - Respiratory Respiratory effort: normal Respiratory: bilateral: CTA - Cardiovascular Heart rate: 78 Rhythm: regular Heart Sounds: Present: S1 & S2. Absent: rub, click - Extremities Extremities: pulses symmetrical, No edema Peripheral Pulses: within normal limits - Abdominal General gastrointestinal: Present: soft, non-tender, non-distended, normal bowel sounds, other (Ostomy bag present--patient has a history of Crohn's disease) Male genitourinary: Present: normal - Integumentary Integumentary: Present: clear, warm, dry - Musculoskeletal Musculoskeletal: gait normal, strength equal bilaterally - Psychiatric Psychiatric: appropriate mood/affect, intact judgment & insight - Neurologic Neurologic: CNII-XII intact, moves all extremities HEART Score - HEART Score History: Slightly suspicious Risk factors: > 3 risk factors or hx of atherosclerotic disease Troponin: < normal limit - Critical Actions Critical Actions: 0-3 pts:0.9-1.7%risk of adverse cardiac event.Candidate for discharge Results - Labs CBC & Chem 7: 05/17/21 12:43 05/17/21 12:43 Labs: Laboratory Last Values WBC 8.7 K/mm3 (4.5-11.0) 05/17/21 12:43 RBC 3.09 M/mm3 (3.65-5.03) L 05/17/21 12:43 Hgb 9.8 gm/dl (11.8-15.2) L 05/17/21 12:43 Hct 29.7 % (35.5-45.6) L 05/17/21 12:43 MCV 96 fl (84-94) H 05/17/21 12:43 MCH 32 pg (28-32) 05/17/21 12:43 MCHC 33 % (32-34) 05/17/21 12:43 RDW 18.2 % (13.2-15.2) H 05/17/21 12:43 Plt Count 313 K/mm3 (140-440) 05/17/21 12:43 Lymph % (Auto) 8.7 % (13.4-35.0) L 05/17/21 12:43 [place] % (Auto) 10.2 % (0.0-7.3) H 05/17/21 12:43 Eos % (Auto) 1.7 % (0.0-4.3) 05/17/21 12:43 Baso % (Auto) 0.5 % (0.0-1.8) 05/17/21 12:43 Lymph # (Auto) 0.8 K/mm3 (1.2-5.4) L 05/17/21 12:43 [place] # (Auto) 0.9 K/mm3 (0.0-0.8) H 05/17/21 12:43 Eos # (Auto) 0.2 K/mm3 (0.0-0.4) 05/17/21 12:43 Baso # (Auto) 0.0 K/mm3 (0.0-0.1) 05/17/21 12:43 Seg Neutrophils % 78.9 % (40.0-70.0) H 05/17/21 12:43 Seg Neutrophils # 6.9 K/mm3 (1.8-7.7) 05/17/21 12:43 Sodium 140 mmol/L (137-145) 05/17/21 12:43 Potassium 3.7 mmol/L (3.6-5.0) 05/17/21 12:43 Chloride 102.6 mmol/L (98-107) 05/17/21 12:43 Carbon Dioxide 10 mmol/L (22-30) L 05/17/21 12:43 Anion Gap 31 mmol/L 05/17/21 12:43 BUN 97 mg/dL (9-20) H 05/17/21 12:43 Creatinine 19.8 mg/dL (0.8-1.3) H 05/17/21 12:43 Estimated GFR 3 ml/min 05/17/21 12:43 BUN/Creatinine Ratio 5 % 05/17/21 12:43 Glucose 106 mg/dL (75-100) H 05/17/21 12:43 POC Glucose 114 mg/dL (70-105) H 05/17/21 23:08 Calcium 9.6 mg/dL (8.4-10.2) 05/17/21 12:43 Short CBC 05/17/21 Range/Units 12:43 WBC 8.7 (4.5-11.0) K/mm3 Hgb 9.8 L (11.8-15.2) gm/dl Hct 29.7 L (35.5-45.6) % Plt Count 313 (140-440) K/mm3 BMP 05/17/21 12:43 Sodium 140 Potassium 3.7 Chloride 102.6 Carbon Dioxide 10 L BUN 97 H Creatinine 19.8 H Glucose 106 H Calcium 9.6 Jeffery/IV: Voiding Method Urinal Assessment and Plan Advance Directives: Yes (Full code) VTE prophylaxis?: Chemical Plan of care discussed with patient/family: Yes - Patient Problems (1) Acute exacerbation of CHF (congestive heart failure) Current Visit: Yes Status: Acute Qualifiers: Heart failure type: combined systolic and diastolic Qualified Code(s): I50.43 - Acute on chronic combined systolic (congestive) and diastolic (congestive) heart failure Plan to address problem: Check echocardiogram for ejection fraction Hemodialysis for increased ultrafiltration (2) Volume overload Current Visit: Yes Status: Acute Plan to address problem: Secondary to missed hemodialysis for 1 week Emergent hemodialysis for increased ultrafiltration Nephrology consulted (3) End-stage renal disease on hemodialysis Current Visit: Yes Status: Chronic Plan to address problem: Patient counseled about regular hemodialysis Patient wants hemodialysis chair at [facility] Case management consulted (4) Crohn disease Current Visit: No Status: Chronic Qualifiers: Gastrointestinal tract location: small intestine Plan to address problem: With ostomy bag Ostomy bag to be replaced On prednisone (5) Hypertension Current Visit: Yes Status: Chronic Qualifiers: Hypertension type: primary hypertension Qualified Code(s): I10 - Essential (primary) hypertension Plan to address problem: Continue antihypertensives and adjust medications as necessary Medications reconciled (6) IDDM (insulin dependent diabetes mellitus) Current Visit: Yes Status: Chronic Plan to address problem: Continue home insulin and coverage Check hemoglobin A1c (7) Anemia Current Visit: Yes Status: Acute Qualifiers: Anemia type: due to chronic kidney disease Chronic kidney disease stage: on chronic dialysis Qualified Code(s): N18.6 - End stage renal disease; D63.1 - Anemia in chronic kidney disease; Z99.2 - Dependence on renal dialysis (8) DVT prophylaxis Current Visit: No Status: Acute Plan to address problem: On heparin and GI prophylaxis
--- NOTE | 2021-05-18 06:26 | Event Note ---
Date: 05/17/21 Patient wanted to sign out AMA around 22 hours Patient unable to walk and fell twice. 2030 form was signed and patient was put on restraints Patient is a self-harm to himself hence 2030 Primary team to discuss with daughter about options of going back to home versus staying with [facility] which is a skilled nursing
[2021-05-18 06:31] LABS: Basophils % (Auto) 0.3 % (0.0-1.8); Eosinophils # (Auto) 0.1 K/mm3 (0.0-0.4); Eosinophils % (Auto) 0.6 % (0.0-4.3); Hematocrit 30.3 % (35.5-45.6); Hemoglobin 10.1 gm/dl (11.8-15.2); Lymphocytes # (Auto) 0.8 K/mm3 (1.2-5.4); Lymphocytes % (Auto) 6.7 % (13.4-35.0); Mean Corpuscular HGB Conc 33 % (32-34); Mean Corpuscular Volume 94 fl (84-94); Monocytes # (Auto) 1.3 K/mm3 (0.0-0.8); Monocytes % (Auto) 10.8 % (0.0-7.3); Platelet Count 329 K/mm3 (140-440); Red Blood Count 3.24 M/mm3 (3.65-5.03); Red Cell Distribution Width 17.7 % (13.2-15.2)
[2021-05-18 06:50] LABS: Albumin 4.3 g/dL (3.9-5); Calcium 9.9 mg/dL (8.4-10.2)
[2021-05-18] MEDS: ONDANSETRON 4 MG/2 ML INJ IV PRN ×2 (07:15→17:14)
[2021-05-18] MEDS ORDERED: POTASSIUM PHOSPHATE 40 MMOL in SODIUM CHLORIDE 0.9% 500 ML 500 ML IV ONE (09:00)
[2021-05-18] MEDS: HEPARIN 5,000 UNIT/1 ML VIAL SUB-Q SCH (09:37)
[2021-05-18] MEDS ORDERED: CINACALCET 30 MG TAB PO SCH (10:00)
[2021-05-18] MEDS ORDERED: MAGNESIUM CHLORIDE ER 64 MG TAB PO SCH (10:00)
[2021-05-18] MEDS ORDERED: FLUTICASONE PROPIONATE NASAL SPRAY 16 GM NS SCH (10:00)
[2021-05-18] MEDS ORDERED: FLUTICASONE PROPIONATE INTRANASAL SCH (10:00)
[2021-05-18] MEDS ORDERED: [UNRECOGNIZED DRUG - OTHER] PO SCH (10:00)
[2021-05-18] MEDS ORDERED: DEXAMETHASONE 4 MG TAB PO SCH (10:00)
--- NOTE | 2021-05-18 13:24 | Progress Note ---
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 -Pending echo -Likely secondary to multiple missed hemodialysis sessions; pending hemodialysis with nephrology -Nephrology consulted upon admission; appreciate rec -Appropriate candidate for emergent hemodialysis; consider ultrafiltration #End-stage renal disease on hemodialysis -Access site: Permacath in right upper chest -Transitioned from home dialysis to hemodialysis; declared ESRD in 2019 (per patient) -Patient counseled at length about needing to attend regular hemodialysis sessions -Patient frequently requesting for hemodialysis chair at [facility] -Case management consulted; in search of hemodialysis chair to ensure safe discharge #Crohn's disease #Ostomy in right lower quadrant -Ostomy bag replaced upon admission -Continue with home prednisone for Crohn's disease maintenance -Continue to monitor #Hypertension -Blood pressure currently stable -Continue home antihypertensives #Insulin-dependent type 2 diabetes -Pending hemoglobin A1c -Continue home insulin #Normocytic anemia -Hemoglobin 10.1 -Likely secondary to anemia of chronic disease; will continue to monitor #DVT prophylaxis -Continue subcutaneous heparin 5000 units every 8 hours Disposition Plan: Continue medical management History Interval history: The patient attempted to leave AMA last night however he fell and was slightly confused. The patient was deemed unable to leave Hospitalist Physical - Constitutional Vitals: Temp Pulse Resp BP Pulse Ox 97.7 F 59 L 18 94/55 98 05/18/21 09:28 05/18/21 09:28 05/18/21 09:28 05/18/21 09:28 05/18/21 09:28 General appearance: Present: no acute distress, cachectic, disheveled - EENT Eyes: Present: PERRL, EOM intact ENT: hearing intact, clear oral mucosa, dentition normal - Neck Neck: Present: supple, normal ROM Details: Permacath in right upper chest with clean bandage dated 05/17/2021 - Respiratory Respiratory effort: normal Respiratory: negative: CTA, diminished, rales, rhonchi, wheezing, other - Cardiovascular Rhythm: regular Heart Sounds: Present: S1 & S2 - Extremities Extremities: no ischemia, pulses intact, pulses symmetrical, No edema, normal temperature, normal color Peripheral Pulses: within normal limits - Abdominal General gastrointestinal: soft, tender (Appropriately tender at ostomy site (right lower quadrant)), non-distended, normal bowel sounds, other (Biliary drain present with green bilious fluid without blood or mucus. Site is bandage d.) - Integumentary Integumentary: Present: clear, warm, dry - Psychiatric Psychiatric: appropriate mood/affect, agitated - Neurologic Neurologic: CNII-XII intact, moves all extremities - Allied Health Allied health notes reviewed: nursing HEART Score - HEART Score History: Moderately suspicious EKG: Non-specific Age: 45-65 Risk factors: > 3 risk factors or hx of atherosclerotic disease Troponin: < normal limit HEART Score: 5 - Critical Actions Critical Actions: 4-6 pts:12-16.6% risk of adverse cardiac event. Should be admitted Results - Labs CBC & Chem 7: 05/18/21 04:57 05/18/21 04:57 Labs: Laboratory Last Values WBC 11.7 K/mm3 (4.5-11.0) H 05/18/21 04:57 RBC 3.24 M/mm3 (3.65-5.03) L 05/18/21 04:57 Hgb 10.1 gm/dl (11.8-15.2) L 05/18/21 04:57 Hct 30.3 % (35.5-45.6) L 05/18/21 04:57 MCV 94 fl (84-94) 05/18/21 04:57 MCH 31 pg (28-32) 05/18/21 04:57 MCHC 33 % (32-34) 05/18/21 04:57 RDW 17.7 % (13.2-15.2) H 05/18/21 04:57 Plt Count 329 K/mm3 (140-440) 05/18/21 04:57 Lymph % (Auto) 6.7 % (13.4-35.0) L 05/18/21 04:57 [place] % (Auto) 10.8 % (0.0-7.3) H 05/18/21 04:57 Eos % (Auto) 0.6 % (0.0-4.3) 05/18/21 04:57 Baso % (Auto) 0.3 % (0.0-1.8) 05/18/21 04:57 Lymph # (Auto) 0.8 K/mm3 (1.2-5.4) L 05/18/21 04:57 [place] # (Auto) 1.3 K/mm3 (0.0-0.8) H 05/18/21 04:57 Eos # (Auto) 0.1 K/mm3 (0.0-0.4) 05/18/21 04:57 Baso # (Auto) 0.0 K/mm3 (0.0-0.1) 05/18/21 04:57 Seg Neutrophils % 81.6 % (40.0-70.0) H 05/18/21 04:57 Seg Neutrophils # 9.5 K/mm3 (1.8-7.7) H 05/18/21 04:57 Sodium 139 mmol/L (137-145) 05/18/21 04:57 Potassium 2.5 mmol/L (3.6-5.0) L* D 05/18/21 04:57 Chloride 97.3 mmol/L (98-107) L 05/18/21 04:57 Carbon Dioxide 18 mmol/L (22-30) L D 05/18/21 04:57 Anion Gap 26 mmol/L 05/18/21 04:57 BUN 52 mg/dL (9-20) H 05/18/21 04:57 Creatinine 12.9 mg/dL (0.8-1.3) H 05/18/21 04:57 Estimated GFR 5 ml/min 05/18/21 04:57 BUN/Creatinine Ratio 4 % 05/18/21 04:57 Glucose 104 mg/dL (75-100) H 05/18/21 04:57 POC Glucose 102 mg/dL (70-105) 05/18/21 09:15 Hemoglobin A1c 4.7 % (4-6) 05/18/21 04:57 Calcium 9.9 mg/dL (8.4-10.2) 05/18/21 04:57 Total Bilirubin 1.10 mg/dL (0.1-1.2) 05/18/21 04:57 AST 19 units/L (5-40) 05/18/21 04:57 ALT 24 units/L (7-56) 05/18/21 04:57 Alkaline Phosphatase 148 units/L (35-129) H 05/18/21 04:57 Total Protein 8.8 g/dL (6.3-8.2) H 05/18/21 04:57 Albumin 4.3 g/dL (3.9-5) 05/18/21 04:57 Albumin/Globulin Ratio 1.0 % 05/18/21 04:57 Jeffery/IV: Voiding Method Urinal Active Medications - Current Medications Current Medications: Generic Name Dose Route Start Last Admin Trade Name Freq PRN Reason Stop Dose Admin Acetaminophen 650 mg 05/17/21 17:30 Acetaminophen 325 Mg Tab PO Q4H PRN Pain MILD(1-3)/Fever >100.5/HULL Albuterol 2.5 mg 05/17/21 18:17 Albuterol 2.5 Mg/3 Ml Nebu IH Q4HRT PRN Shortness Of Breath Atorvastatin Calcium 40 mg 05/17/21 22:00 05/17/21 23:54 Atorvastatin 40 Mg Tab PO Not Given QHS [facility] Calcium Acetate 667 mg 05/18/21 10:00 Calcium Acetate 667 Mg Cap PO DAILY THOMAS Carvedilol 12.5 mg 05/18/21 10:00 Carvedilol 12.5 Mg Tab PO DAILY [facility] Cinacalcet 30 mg 05/18/21 10:00 Cinacalcet 30 Mg Tab PO QDAY [facility] Clonidine HCl 0.3 mg 05/23/21 10:00 Clonidine Tts 0.3 Mg/24 Hr Patch TD Tu [facility] Diclofenac Sodium 1 applic 05/17/21 22:00 05/17/21 23:54 Diclofenac Sodium 1% Topical Gel 100 Gm TP Not Given QID THOMAS Dicyclomine HCl 10 mg 05/17/21 18:30 05/18/21 09:34 Dicyclomine 10 Mg/5 Ml Oral Liqd PO 10 mg QID THOMAS Administration Diphenhydramine HCl 25 mg 05/17/21 22:00 05/17/21 23:54 Diphenhydramine 25 Mg Cap PO Not Given HS THOMAS Famotidine 10 mg 05/17/21 22:00 05/17/21 23:54 Famotidine 10 Mg Tab PO Not Given BID THOMAS Fluticasone Propionate 100 mcg 05/18/21 10:00 Fluticasone Propionate Nasal [place] 16 Gm NS QDAY THOMAS Heparin Sodium (Porcine) 5,000 unit 05/17/21 22:00 05/18/21 09:37 Heparin 5,000 Unit/1 Ml Vial SUB-Q 5,000 unit Q12HR THOMAS Administration Hydromorphone HCl 0.5 mg 05/17/21 17:30 Hydromorphone 1 Mg/1 Ml Inj IV Q3H PRN Pain , Severe (7-10) Potassium Phosphate 40 mmol/ 513.3333 mls @ 83 mls/hr 05/18/21 09:00 05/18/21 09:34 Sodium Chloride IV 05/18/21 15:11 83 mls/hr ONCE ONE Administration Insulin Glargine 5 units 05/17/21 22:00 05/17/21 23:54 Insulin Glargine 100 Units/Ml SUB-Q Not Given QHS [facility] Insulin Human Lispro 0 unit 05/17/21 22:00 05/18/21 11:58 Insulin Lispro 100 Unit/Ml SUB-Q Not Given ACHS [facility] Protocol Magnesium Oxide 400 mg 05/18/21 10:00 Magnesium Oxide 400 Mg Tab PO QDAY [facility] Metoclopramide HCl 10 mg 05/17/21 17:30 Metoclopramide 10 Mg/2 Ml Inj IV Q6H PRN Nausea And Vomiting Multivit/Ca Carb/B Cmplx/FA/Prenat 1 cap 05/18/21 10:00 Folic Acid/Vit B Comp W-C 1 Mg (Renal Caps) PO QDAY [facility] Ondansetron HCl 4 mg 05/17/21 17:30 05/18/21 07:15 Ondansetron 4 Mg/2 Ml Inj IV 4 mg Q8H PRN Administration Nausea And Vomiting Oxycodone/Acetaminophen 1 tab 05/17/21 17:30 Oxycodone /Acetaminophen 5-325mg Tab PO Q6H PRN Pain, Moderate (4-6) Scopolamine 1 each 05/20/21 10:00 Scopolamine Transdermal Patch 72 Hr TD Q3D THOMAS Sodium Chloride 10 ml 05/17/21 22:00 05/17/21 23:30 Sodium Chloride 0.9% 10 Ml Flush Syringe IV 10 ml BID THOMAS Administration Sodium Chloride 10 ml 05/17/21 17:30 Sodium Chloride 0.9% 10 Ml Flush Syringe IV PRN PRN LINE FLUSH
[2021-05-18] MEDS: DICLOFENAC SODIUM 1% TOPICAL GEL 100 GM TP SCH ×2 (14:00→17:10)
--- NOTE | 2021-05-18 16:32 | Event Note ---
Date: 05/18/21 The patient was found to be COVID-19 positive and was transferred to the 3rd floor MED/SURG. Covid inflammatory labs have been ordered. Transfer orders have been placed.
[2021-05-18] MEDS: CALCIUM ACETATE 667 MG CAP PO SCH ×2 (17:08→17:43)
[2021-05-18] MEDS: FAMOTIDINE 10 MG TAB PO SCH ×2 (17:08→17:41)
[2021-05-18] MEDS: FOLIC ACID/VIT B COMP W-C 1 MG (RENAL CAPS) PO SCH ×2 (17:08→17:44)
[2021-05-18] MEDS: MAGNESIUM OXIDE 400 MG TAB PO SCH ×2 (17:09→17:41)
[2021-05-18] MEDS: carvediloL 12.5 MG TAB PO SCH ×2 (17:10→17:40)
--- NOTE | 2021-05-18 18:02 | Consultation ---
History of Present Illness - Reason for Consult Consult date: 05/18/21 end stage renal disease - History of Present Illness This is a 60-year-old man with end-stage renal disease on hemodialysis, hypertension, insulin-dependent diabetes and Crohn's disease who presented with one-week history of shortness of breath and missed dialysis. There is no associated fever, chills, chest pain, presyncope or syncope. Nephrology was consulted for ESRD management. Medications and Allergies Allergies Allergy/AdvReac Type Severity Reaction Status Date / Time No Known Allergies Allergy Verified 05/17/21 12:08 Home Medications Medication Instructions Recorded Confirmed Last Taken Type Albuterol Mdi (or & Nicu Only) 2 puff IH QID PRN #1 inhalation 04/01/17 05/05/21 10/31/20 09:00 Rx [ProAir HFA Inhaler] Calcium Acetate 667 mg PO DAILY 04/20/20 05/05/21 10/31/20 09:00 History Centrum Men's Tablet 1 tab PO DAILY 04/20/20 05/05/21 10/31/20 09:00 History Cinacalcet 30 mg PO DAILY 04/20/20 05/05/21 10/31/20 09:00 History Dialyvite with Zinc Tablet 1 tab PO DAILY 04/20/20 05/05/21 10/31/20 09:00 His tory Magnesium 250 mg PO BID 04/20/20 05/05/21 10/31/20 17:00 History Triamcinolone 0.1% 1 1000units TRANSDERMA DAILY 04/20/20 05/05/21 10/31/20 09:00 History Vit B12/Folic Acid/B6/Aa No.15 1,000 mg PO DAILY 04/20/20 05/05/21 10/31/20 09:00 History AtorvaSTATin 40 mg PO HS 11/01/20 05/05/21 10/31/20 21:00 History Diclofenac 1 applic TRANSDERMA QID 11/01/20 05/05/21 10/31/20 19:00 History Vitamin D3 2,000 units PO QDAY 11/01/20 05/05/21 10/31/20 09:00 History carvediloL 12.5 mg PO DAILY 11/01/20 05/05/21 10/31/20 09:00 History Fluticasone Propionate 1 spray INTRANASAL DAILY #1 02/21/21 05/05/21 Unknown Rx Insulin Glargine [Lantus VIAL] 5 units SUB-Q QHS #1 units 02/21/21 05/05/21 Unknown Rx Lispro Insulin [HumaLOG] See Protocol SUB-Q Q6HR #1 vial 02/21/21 05/05/21 Unknown Rx Scopolamine [Transderm-Scop] 1 each TD Q3D #10 patch 02/21/21 05/05/21 Unknown Rx Dicyclomine [Bentyl] 10 mg PO QID 10 Days oral.liqd 03/28/21 05/05/21 Unknown Rx HYDROcodone/ACETAMINOPHEN 15 ml PO Q6H PRN #150 ml 03/28/21 05/05/21 Unknown Rx [Hydrocodone-Acetamn 7.5-325/15] Triamcinolone 0.1% [Kenalog 0.1% 1 applic TP DAILY #1 tube 03/28/21 05/05/21 Unknown Rx CREAM] cloNIDine-TTS PATCH [Catapres-Tts 0.3 mg TD Tu #4 patch 03/28/21 05/05/21 Unknown Rx 0.3mg Patch] Epoetin Maurice-Epbx 20,000 [Retacrit] 20,000 unit IV [place] PRN vial 05/11/21 Unknown Rx Famotidine [Pepcid] 20 mg PO QAM tablet 05/11/21 Unknown Rx dexAMETHasone [Decadron] 6 mg PO DAILY tablet 05/11/21 Unknown Rx Active Meds: Active Medications Acetaminophen (Acetaminophen 325 Mg Tab) 650 mg PO Q4H PRN PRN Reason: Pain MILD(1-3)/Fever >100.5/HULL Albuterol (Albuterol 2.5 Mg/3 Ml Nebu) 2.5 mg IH Q4HRT PRN PRN Reason: Shortness Of Breath Atorvastatin Calcium (Atorvastatin 40 Mg Tab) 40 mg PO QHS [facility] Last Admin: 05/17/21 23:54 Dose: Not Given Documented by: Calcium Acetate (Calcium Acetate 667 Mg Cap) 667 mg PO DAILY [facility] Last Admin: 05/18/21 17:43 Dose: Not Given Documented by: Carvedilol (Carvedilol 12.5 Mg Tab) 12.5 mg PO DAILY [facility] Last Admin: 05/18/21 17:40 Dose: Not Given Documented by: Cinacalcet (Cinacalcet 30 Mg Tab) 30 mg PO QDAY [facility] Last Admin: 05/18/21 17:09 Dose: 30 mg Documented by: Clonidine HCl (Clonidine Tts 0.3 Mg/24 Hr Patch) 0.3 mg TD Tu [facility] Diclofenac Sodium (Diclofenac Sodium 1% Topical Gel 100 Gm) 1 applic TP QID [facility] Last Admin: 05/18/21 17:10 Dose: Not Given Documented by: Dicyclomine HCl (Dicyclomine 10 Mg/5 Ml Oral Liqd) 10 mg PO QID [facility] Last Admin: 05/18/21 17:40 Dose: Not Given Documented by: Diphenhydramine HCl (Diphenhydramine 25 Mg Cap) 25 mg PO HS [facility] Last Admin: 05/17/21 23:54 Dose: Not Given Documented by: Famotidine (Famotidine 10 Mg Tab) 10 mg PO BID [facility] Last Admin: 05/18/21 17:41 Dose: Not Given Documented by: Fluticasone Propionate (Fluticasone Propionate Nasal [place] 16 Gm) 100 mcg NS QDAY [facility] Last Admin: 05/18/21 16:48 Dose: Not Given Documented by: Heparin Sodium (Porcine) (Heparin 5,000 Unit/1 Ml Vial) 5,000 unit SUB-Q Q12HR [facility] Last Admin: 05/18/21 09:37 Dose: 5,000 unit Documented by: Hydromorphone HCl (Hydromorphone 1 Mg/1 Ml Inj) 0.5 mg IV Q3H PRN PRN Reason: Pain , Severe (7-10) Insulin Glargine (Insulin Glargine 100 Units/Ml) 5 units SUB-Q QHS [facility] Last Admin: 05/17/21 23:54 Dose: Not Given Documented by: Insulin Human Lispro (Insulin Lispro 100 Unit/Ml) 0 unit SUB-Q [facility]; Protocol Last Admin: 05/18/21 16:49 Dose: Not Given Documented by: Magnesium Oxide (Magnesium Oxide 400 Mg Tab) 400 mg PO QDAY [facility] Last Admin: 05/18/21 17:41 Dose: Not Given Documented by: Metoclopramide HCl (Metoclopramide 10 Mg/2 Ml Inj) 10 mg IV Q6H PRN PRN Reason: Nausea And Vomiting Multivit/Ca Carb/B Cmplx/FA/Prenat (Folic Acid/Vit B Comp W-C 1 Mg (Renal Caps)) 1 cap PO QDAY [facility] Last Admin: 05/18/21 17:44 Dose: Not Given Documented by: Ondansetron HCl (Ondansetron 4 Mg/2 Ml Inj) 4 mg IV Q8H PRN PRN Reason: Nausea And Vomiting Last Admin: 05/18/21 17:14 Dose: 4 mg Documented by: Oxycodone/Acetaminophen (Oxycodone /Acetaminophen 5-325mg Tab) 1 tab PO Q6H PRN PRN Reason: Pain, Moderate (4-6) Scopolamine (Scopolamine Transdermal Patch 72 Hr) 1 each TD Q3D THOMAS Sodium Chloride (Sodium Chloride 0.9% 10 Ml Flush Syringe) 10 ml IV BID [facility] Last Admin: 05/18/21 17:43 Dose: Not Given Documented by: Sodium Chloride (Sodium Chloride 0.9% 10 Ml Flush Syringe) 10 ml IV PRN PRN PRN Reason: LINE FLUSH Review of Systems Constitutional: no fever, no chills Ears, nose, mouth and throat: no nasal congestion, no nasal discharge Cardiovascular: shortness of breath, no chest pain Respiratory: no congestion, no wheezing Gastrointestinal: no nausea, no vomiting Musculoskeletal: no muscle weakness, no muscle cramps Integumentary: no rash, no pruritis Neurological: no seizures, no syncope Psychiatric: no anxiety, no paranoia Endocrine: no polydipsia, no polyuria Exam - Vital Signs Vital signs: Vital Signs Temp Pulse Resp BP Pulse Ox 98.2 F 62 18 96/65 97 05/17/21 12:13 05/17/21 12:13 05/17/21 12:13 05/17/21 12:13 05/17/21 12:13 - Physical Exam Narrative exam: Deferred to reduce transmission risk as patient is Covid positive. Primary team exam reviewed. Results - Lab Results 05/18/21 04:57 05/18/21 04:57 Most recent lab results Calcium 9.9 mg/dL (8.4-10.2) 05/18/21 04:57 Assessment and Plan Assessment - End-stage renal disease on hemodialysis - Hypotension - Acidosis - Anemia of ESRD - Hyperparathyroidism - Hyperphosphatemia - Covid positive Recommendations - Continue HD TTS - Monitor labs and volume status daily and assess need for additional dialysis session - Hold antihypertensives given soft pressures - Keep MAP>65 - No indication for Epogen with HD - Continue sensipar - Continue phosphorus binders - ESRD diet with 1.4 g/kg per day protein - Renally dose medication for creatinine clearance less than 15 cc/min - Covid management as per primary - Consent obtained to continue inpatient HD
--- NOTE | 2021-05-18 18:49 | Discharge Summary ---
Providers - Providers Date of Admission: 05/17/21 15:07 Date of discharge: 05/18/21 Attending physician: AAMIR ZARATE MD 05/17/21 15:04 Consult to Physician [CONS] Stat Comment: Consulting Provider: MÓNICA JC Physician Instructions: Reason For Exam: esrd 05/18/21 06:22 Consult to Case Management [CONS] Routine Services Needed at Discharge: Home Health Services Physician Extender Other Notified:: CASE MANAGEMENT Comment:: Wants a hemodialysis chair at [facility] 05/18/21 14:44 Physical Therapy Evaluation and Treat [CONS] Urgent Comment: Reason For Exam: PT to eval and treat 05/19/21 08:00 Consult to Wound/ET Nurse [CONS] Routine Reason For Exam: plz place ostomy appliance on EC fistula, teach pt Primary care physician: DIE ASSEMBLER Hospitalization Reason for admission: ESRD on dialysis with volume overload Condition: Stable Pertinent studies: Reviewed Procedures: Hemodialysis Hospital course: The patient is a 60-year-old male with past medical history of ESRD on hemodialysis (permacath at right upper chest), hypertension, Crohn's disease status post ostomy placement, placement of biliary drain, and diabetes who presented with worsening shortness of breath after missing approximately 1 week of hemodialysis. The patient was recently left AMA from rehab to return home, and during this time he did not have an established dialysis chair. The patient adamantly refused to return back to his rehab center. The patient was evaluated and underwent hemodialysis on 05/18/2021. Subsequent lab work revealed a positive COVID-19 test; however, the patient was initially found to be positive on 05/03/2021. The likelihood of a breakthrough infection disclosed to his original infection is highly unlikely. This positive test is a likely sequela from his original infection. Case management was consulted and is actively working on establishing a dialysis chair in a dialysis center that is near his home. It was explained to the patient and his daughter (Cristopher Simeon) that the patient could be discharged today; however, there was not an established dialysis chair yet. However, the patient could present to the emergency room on Saturday, May 18, 2021 for a session of dialysis and return home afterwards. Both the patient and his daughter expressed understanding and agreed to discharge. Disposition: 01 HOME / SELF CARE / HOMELESS Final Discharge Diagnosis (Prints w/discharge instructions): Metabolic acidosis with anion gap; ESRD on hemodialysis with volume overload Core Measure Documentation - Palliative Care Palliative Care/ Comfort Measures: Not Applicable - Core Measures Any of the following diagnoses?: none - VTE Discharge Requirements Deep Vein Thrombosis/Pulmonary Embolism Present on Admission: No Has pt received <5 days of overlap therapy or INR<2.0: No (Not applicable) Anticoagulant overlap therapy prescribed at discharge: No Contraindication No Overlap Therapy order at DC: Not Indicated - Acute [place] Discharge Requirements Aspirin at discharge: No Reason for no aspirin on DC: Medical contraindication (Medication not needed.) NUBIA/ARB for LVSD if EF <40%: Yes Beta suly at discharge: Yes Statin for LDL = or >100 mg/dl on DC: Yes - Heart Failure Discharge Requirements NUBIA/ARB for LVSD if EF <40%: Not Applicable Beta suly at discharge: Yes - Stroke Discharge Requirements Statin for LDL = or >70 mg/dl on DC: Not Applicable Exam - Constitutional Vitals: Temp Pulse Resp BP Pulse Ox 97.9 F 103 H 18 89/36 97 05/18/21 11:09 05/18/21 11:10 05/18/21 16:00 05/18/21 11:10 05/18/21 16:00 General appearance: Present: no acute distress - EENT Eyes: Present: PERRL, EOM intact ENT: hearing intact, clear oral mucosa, dentition normal - Neck Neck: Present: supple, normal ROM Details: Permacath in the right upper chest with clean bandaging. No erythema, tende rness, or purulent drainage is seen. - Respiratory Respiratory effort: normal - Cardiovascular Rhythm: regular Heart Sounds: Present: S1 & S2 - Extremities Extremities: no ischemia, pulses intact, pulses symmetrical, No edema, normal temperature, normal color Peripheral Pulses: within normal limits - Abdominal General gastrointestinal: Present: soft, tender (Appropriate tenderness at ostomy site. Ostomy located in right lower quadrant), non-distended, normal bowel sounds, other (Biliary drain collecting bilious fluid without blood or purulence.) - Rectal Rectal Exam: deferred - Integumentary Integumentary: Present: clear, warm, dry - Musculoskeletal Musculoskeletal: strength equal bilaterally - Psychiatric Psychiatric: appropriate mood/affect, agitated - Neurologic Neurologic: CNII-XII intact, moves all extremities - Allied Health Allied health notes reviewed: nursing Plan Activity: no restrictions Weight Bearing Status: Weight Bear as Tolerated Diet: renal Special Instructions: restrict fluid intake to (1.5 to 2 L a day.) Care Plan Goals: Please return to the hospital on Saturday, May 20, 2021 for another session of hemodialysis. Case management is actively working on getting a dialysis chair for the patient near his home. Health Concerns: Please return to the hospital for the following reasons: confusion, weakness, chest pain/pressure, shortness of breath, worsening volume overload, fevers, chills, or an inability to tolerate oral intake. Assessment: Being discharged home with family. The patient was previously found to be COVID-19 positive on 05/03/2021. The repeat test on 05/18/2021 is likely still from the original infection. Given the fact that he is no immunocompromised, the patient is no longer considered infectious. He should be safe to home discharge. His daughter (Cristopher Simeon) was notified about the patient being eligible for discharge home. The patient will need to return to the ED on 05/20/2021 for hemodialysis while Case Management will work on securing a dialysis chair. Patient's daughter expressed understanding. Follow up with: PRIMARY CAREMD [Primary Care Provider] - 7 Days Pending Studies Finalization of obtaining hemodialysis chair at nearby dialysis center
[2021-05-18 20:25] VITALS: BP 108/59
--- NOTE | 2021-05-19 08:44 | Electrocardiograph Report ---
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
[2021-05-20] MEDS ORDERED: SCOPOLAMINE TRANSDERMAL PATCH 72 HR TD SCH (10:00)
[2021-05-23] MEDS ORDERED: cloNIDine TTS 0.3 MG/24 HR PATCH TD SCH (10:00)
== END 2021-05-18 20:00 | disposition home or self-care (01) ==
LOC: ED 11:52 → 4A 15:07
PROVIDERS: ADMIT Internal Medicine; ATTEND Student in an Organized Health Care Education/Training Program
DX: U07.1 COVID-19 (principal); E87.70 Fluid overload, unspecified; I13.2 Hypertensive heart and chronic kidney disease with heart failure and with stage 5 chronic kidney disease, or end stage renal disease; I50.43 Acute on chronic combined systolic (congestive) and diastolic (congestive) heart failure; N18.6 End stage renal disease; D63.1 Anemia in chronic kidney disease; K21.9 Gastro-esophageal reflux disease without esophagitis; G43.909 Migraine, unspecified, not intractable, without status migrainosus; E87.2 Acidosis; E11.22 Type 2 diabetes mellitus with diabetic chronic kidney disease; K50.90 Crohn's disease, unspecified, without complications; E21.3 Hyperparathyroidism, unspecified; I95.9 Hypotension, unspecified; Z99.2 Dependence on renal dialysis; Z79.4 Long term (current) use of insulin; Z90.49 Acquired absence of other specified parts of digestive tract; Z79.899 Other long term (current) drug therapy; Z98.890 Other specified postprocedural states; Z87.891 Personal history of nicotine dependence
CPT/HCPCS: 36415; 80048; 80053; 82962; 83036; 85025; 93005; 96365; 96366; 96372; 96375; 96376; 99284; G0257; G0378; J1644; J2405; J7040; J7050; U0003

== ENCOUNTER 2021-05-20 09:46 | Emergency (ER) | payer MEDICARE ==
--- NOTE | 2021-05-20 11:54 | Emergency Department Report ---
ED General Adult HPI - General Chief complaint: Medical Clearance Stated complaint: MISSED DIALYSIS Source: patient Mode of arrival: Ambulatory Limitations: No Limitations - History of Present Illness Initial comments: 60-year-old male, history of ESRD, presents to ED "for dialysis." Patient states he was recently discharged from the hospital. States he was last dialyzed on and told to return to the ER today, Saturday, for dialysis. Patient states he has not yet been assigned a chair at a dialysis center. Patient has no complaints. Quality: other (Painless) Improves with: none Worsens with: none Associated Symptoms: denies other symptoms Treatments Prior to Arrival: none - Related Data Home Medications Medication Instructions Recorded Confirmed Last Taken Calcium Acetate 667 mg PO DAILY 04/20/20 05/05/21 10/31/20 09:00 Centrum Men's Tablet 1 tab PO DAILY 04/20/20 05/05/21 10/31/20 09:00 Cinacalcet 30 mg PO DAILY 04/20/20 05/05/21 10/31/20 09:00 Dialyvite with Zinc Tablet 1 tab PO DAILY 04/20/20 05/05/21 10/31/20 09:00 Magnesium 250 mg PO BID 04/20/20 05/05/21 10/31/20 17:00 Triamcinolone 0.1% 1 1000units TRANSDERMA DAILY 04/20/20 05/05/21 10/31/20 09:00 Vit B12/Folic Acid/B6/Aa No.15 1,000 mg PO DAILY 04/20/20 05/05/21 10/31/20 09:00 AtorvaSTATin 40 mg PO HS 11/01/20 05/05/21 10/31/20 21:00 Diclofenac 1 applic TRANSDERMA QID 11/01/20 05/05/21 10/31/20 19:00 Vitamin D3 2,000 units PO QDAY 11/01/20 05/05/21 10/31/20 09:00 carvediloL 12.5 mg PO DAILY 11/01/20 05/05/21 10/31/20 09:00 Previous Rx's Medication Instructions Recorded Last Taken Type Albuterol Mdi (or & Nicu Only) 2 puff IH QID PRN #1 inhalation 04/01/17 10/31/20 09:00 Rx [ProAir HFA Inhaler] Fluticasone Propionate 1 spray INTRANASAL DAILY #1 02/21/21 Unknown Rx Insulin Glargine [Lantus VIAL] 5 units SUB-Q QHS #1 units 02/21/21 Unknown Rx Lispro Insulin [HumaLOG] See Protocol SUB-Q Q6HR #1 vial 02/21/21 Unknown Rx Scopolamine [Transderm-Scop] 1 each TD Q3D #10 patch 02/21/21 Unknown Rx Dicyclomine [Bentyl] 10 mg PO QID 10 Days oral.liqd 03/28/21 Unknown Rx HYDROcodone/ACETAMINOPHEN 15 ml PO Q6H PRN #150 ml 03/28/21 Unknown Rx [Hydrocodone-Acetamn 7.5-325/15] Triamcinolone 0.1% [Kenalog 0.1% 1 applic TP DAILY #1 tube 03/28/21 Unknown Rx CREAM] cloNIDine-TTS PATCH [Catapres-Tts 0.3 mg TD Tu #4 patch 03/28/21 Unknown Rx 0.3mg Patch] Epoetin Maurice-Epbx 20,000 [Retacrit] 20,000 unit IV RYLAND PRN vial 05/11/21 Unkno wn Rx Famotidine [Pepcid] 20 mg PO QAM tablet 05/11/21 Unknown Rx dexAMETHasone [Decadron] 6 mg PO DAILY tablet 05/11/21 Unknown Rx Allergies Allergy/AdvReac Type Severity Reaction Status Date / Time No Known Allergies Allergy Verified 05/17/21 12:08 ED Review of Systems ROS: Stated complaint: MISSED DIALYSIS Other details as noted in HPI Comment: All other systems reviewed and negative Constitutional: denies: fever Respiratory: denies: shortness of breath Gastrointestinal: denies: nausea, vomiting ED Past Medical Hx - Past Medical History Previous Medical History?: Yes Hx Hypertension: Yes Hx Heart Attack/AMI: No Hx Congestive Heart Failure: Yes ([place] 2013) Hx Diabetes: No Hx Pulmonary Embolism: Yes (02/2021) Hx GERD: Yes Hx Renal Disease: Yes Hx Sickle Cell Disease: No Hx Headaches / Migraines: Yes Hx Seizures: No Hx Asthma: No Hx COPD: No Hx Dementia: No Hx HIV: No Additional medical history: Crohns - Surgical History Past Surgical History?: Yes Hx Cholecystectomy: Yes ([place] 1998) Hx Appendectomy: Yes ([place] 2007) - Social History Smoking Status: Former Smoker Substance Use Type: Alcohol - Medications Home Medications: Home Medications Medication Instructions Recorded Confirmed Last Taken Type Albuterol Mdi (or & Nicu Only) 2 puff IH QID PRN #1 inhalation 04/01/17 05/05/21 10/31/20 09:00 Rx [ProAir HFA Inhaler] Calcium Acetate 667 mg PO DAILY 04/20/20 05/05/21 10/31/20 09:00 History Centrum Men's Tablet 1 tab PO DAILY 04/20/20 05/05/21 10/31/20 09:00 History Cinacalcet 30 mg PO DAILY 04/20/20 05/05/21 10/31/20 09:00 History Dialyvite with Zinc Tablet 1 tab PO DAILY 04/20/20 05/05/21 10/31/20 09:00 History Magnesium 250 mg PO BID 04/20/20 05/05/21 10/31/20 17:00 History Triamcinolone 0.1% 1 1000units TRANSDERMA DAILY 04/20/20 05/05/21 10/31/20 09:00 History Vit B12/Folic Acid/B6/Aa No.15 1,000 mg PO DAILY 04/20/20 05/05/21 10/31/20 09:00 History AtorvaSTATin 40 mg PO HS 11/01/20 05/05/21 10/31/20 21:00 History Diclofenac 1 applic TRANSDERMA QID 11/01/20 05/05/21 10/31/20 19:00 History Vitamin D3 2,000 units PO QDAY 11/01/20 05/05/21 10/31/20 09:00 History carvediloL 12.5 mg PO DAILY 11/01/20 05/05/21 10/31/20 09:00 History Fluticasone Propionate 1 spray INTRANASAL DAILY #1 02/21/21 05/05/21 Unknown Rx Insulin Glargine [Lantus VIAL] 5 units SUB-Q QHS #1 units 02/21/21 05/05/21 Unknown Rx Lispro Insulin [HumaLOG] See Protocol SUB-Q Q6HR #1 vial 02/21/21 05/05/21 Unknown Rx Scopolamine [Transderm-Scop] 1 each TD Q3D #10 patch 02/21/21 05/05/21 Unknown Rx Dicyclomine [Bentyl] 10 mg PO QID 10 Days oral.liqd 03/28/21 05/05/21 Unknown Rx HYDROcodone/ACETAMINOPHEN 15 ml PO Q6H PRN #150 ml 03/28/21 05/05/21 Unknown Rx [Hydrocodone-Acetamn 7.5-325/15] Triamcinolone 0.1% [Kenalog 0.1% 1 applic TP DAILY #1 tube 03/28/21 05/05/21 Unknown Rx CREAM] cloNIDine-TTS PATCH [Catapres-Tts 0.3 mg TD Tu #4 patch 03/28/21 05/05/21 Unknown Rx 0.3mg Patch] Epoetin Maurice-Epbx 20,000 [Retacrit] 20,000 unit IV RYLAND PRN vial 05/11/21 Unknown Rx Famotidine [Pepcid] 20 mg PO QAM tablet 05/11/21 Unknown Rx dexAMETHasone [Decadron] 6 mg PO DAILY tablet 05/11/21 Unknown Rx ED Physical Exam - General Limitations: No Limitations General appearance: alert, in no apparent distress - Head Head exam: Present: atraumatic, normocephalic - Eye Eye exam: Present: normal appearance, EOMI - ENT ENT exam: Present: mucous membranes moist - Neck Neck exam: Present: normal inspection - Respiratory Respiratory exam: Present: normal lung sounds bilaterally. Absent: respiratory distress - Cardiovascular Cardiovascular Exam: Present: regular rate, normal rhythm - GI/Abdominal GI/Abdominal exam: Absent: tenderness - Extremities Exam Extremities exam: Present: normal inspection - Neurological Exam Neurological exam: Present: alert, oriented X3 - Psychiatric Psychiatric exam: Present: normal affect, normal mood - Skin Skin exam: Present: warm, dry, intact, normal color ED Course Vital Signs 05/20/21 05/20/21 12:10 14:09 Temperature 97.6 F 98.3 F Pulse Rate 65 54 L Respiratory 12 18 Rate Blood Pressure 115/66 144/96 [Right] O2 Sat by Pulse 99 100 Oximetry - Consultations Consultation #1: 05/20/21 13:[address] Lindsay, vice president of engineering. Recommends that patient be admitted since he has not been assigned a dialysis center. Patient states he does not want to stay for admission. States he was told to come to the ER to be dialyzed and then discharged home. Patient refusing admission. 05/20/21 13:[address] Ross. States dialysis schedule is full for the day, so patient cannot be dialyzed today. She again recommends that patient be admitted. Patient again refuses admission. In this case, Dr Bell advises patient return on Saturday, 05/22, for repeat labs. ED Medical Decision Making - Lab Data Result diagrams: 05/20/21 11:40 05/20/21 11:40 - Medical Decision Making 60-year-old male, history of ESRD, presents to ED "for dialysis." Patient states he was recently discharged from the hospital. States he was last dialyzed on and told to return to the ER today, Saturday, for dialysis. Patient states he has not yet been assigned a chair at a dialysis center. I spoke with vice president of engineering, Dr. Bell. She wanted patient to be admitted until he has been assigned a dialysis center. Patient refused admission. Dr. Ross also attempted to get patient dialyzed today, however there was no way to fit patient in. Patient does not require emergent dialysis at this time. He is in no respiratory distress. O2 sats are normal. Potassium is not elevated. Patient will be discharged at this time. He has been instructed to return to the ED in 2 days to have labs rechecked. Patient has been advised to return to the ER before that time if he experiences any shortness of breath or feels sick in any way. - Differential Diagnosis Hyperkalemia Critical care attestation.: If time is entered above; I have spent that time in minutes in the direct care of this critically ill patient, excluding procedure time. ED Disposition Clinical Impression: ESRD on dialysis Disposition: HOME / SELF CARE / HOMELESS Is pt being admited?: No Condition: Stable Additional Instructions: Please return to the ER on 05/22/21, so that we can repeat your labs. If you are having difficulty breathing or feeling unwell before that time, then return to the ER immediately. Referrals: PRIMARY CARE, [Primary Care Provider] - 3-5 Days Time of Disposition: 14:02
[2021-05-20 12:18] LABS: Calcium 10.3 mg/dL (8.4-10.2)
[2021-05-20 12:36] LABS: Basophils % (Auto) 0.7 % (0.0-1.8); Eosinophils # (Auto) 0.1 K/mm3 (0.0-0.4); Eosinophils % (Auto) 2.2 % (0.0-4.3); Hematocrit 32.2 % (35.5-45.6); Hemoglobin 11.1 gm/dl (11.8-15.2); Lymphocytes # (Auto) 0.9 K/mm3 (1.2-5.4); Lymphocytes % (Auto) 13.9 % (13.4-35.0); Mean Corpuscular HGB Conc 35 % (32-34); Mean Corpuscular Volume 95 fl (84-94); Monocytes # (Auto) 0.7 K/mm3 (0.0-0.8); Monocytes % (Auto) 10.8 % (0.0-7.3); Platelet Count 288 K/mm3 (140-440); Red Cell Distribution Width 17.8 % (13.2-15.2)
[2021-05-20 14:12] VITALS: BP 144/96
== END 2021-05-20 14:07 | disposition home or self-care (01) ==
LOC: ED 09:46
DX: I13.2 Hypertensive heart and chronic kidney disease with heart failure and with stage 5 chronic kidney disease, or end stage renal disease (principal); N18.6 End stage renal disease; Z99.2 Dependence on renal dialysis; I26.99 Other pulmonary embolism without acute cor pulmonale; K21.9 Gastro-esophageal reflux disease without esophagitis; G43.909 Migraine, unspecified, not intractable, without status migrainosus; K50.90 Crohn's disease, unspecified, without complications; Z90.89 Acquired absence of other organs; Z98.890 Other specified postprocedural states; Z87.891 Personal history of nicotine dependence
CPT/HCPCS: 36415; 80048; 85025; 99283

== ENCOUNTER 2021-05-22 10:48 | Emergency (ER) | payer MEDICARE ==
[2021-05-22 11:05] VITALS: BP 97/64
--- NOTE | 2021-05-22 11:12 | Emergency Department Report ---
ED General Adult HPI - General Chief complaint: Dyspnea/Respdistress Stated complaint: DIALYSIS Time Seen by Provider: 05/22/21 11:07 Source: patient Mode of arrival: Ambulatory Limitations: No Limitations - History of Present Illness Initial comments: Patient is 60 years old male with history of end-stage renal disease on hemodialysis. Patient presented to the ER asking for dialysis. Patient stated that last dialysis was on . Patient currently denying any complaint. Patient denied any chest pain or shortness of breath. No nausea or vomiting. Patient stated that he is not assigned a chair for dialysis yet. Patient was seen here several times for similar presentation. Severity scale (0 -10): 0 - Related Data Home Medications Medication Instructions Recorded Confirmed Last Taken Calcium Acetate 667 mg PO DAILY 04/20/20 05/05/21 10/31/20 09:00 Centrum Men's Tablet 1 tab PO DAILY 04/20/20 05/05/21 10/31/20 09:00 Cinacalcet 30 mg PO DAILY 04/20/20 05/05/21 10/31/20 09:00 Dialyvite with Zinc Tablet 1 tab PO DAILY 04/20/20 05/05/21 10/31/20 09:00 Magnesium 250 mg PO BID 04/20/20 05/05/21 10/31/20 17:00 Triamcinolone 0.1% 1 1000units TRANSDERMA DAILY 04/20/20 05/05/21 10/31/20 09:00 Vit B12/Folic Acid/B6/Aa No.15 1,000 mg PO DAILY 04/20/20 05/05/21 10/31/20 09:00 AtorvaSTATin 40 mg PO HS 11/01/20 05/05/21 10/31/20 21:00 Diclofenac 1 applic TRANSDERMA QID 11/01/20 05/05/21 10/31/20 19:00 Vitamin D3 2,000 units PO QDAY 11/01/20 05/05/21 10/31/20 09:00 carvediloL 12.5 mg PO DAILY 11/01/20 05/05/21 10/31/20 09:00 Previous Rx's Medication Instructions Recorded Last Taken Type Albuterol Mdi (or & Nicu Only) 2 puff IH QID PRN #1 inhalation 04/01/17 10/31/20 09:00 Rx [ProAir HFA Inhaler] Fluticasone Propionate 1 spray INTRANASAL DAILY #1 02/21/21 Unknown Rx Insulin Glargine [Lantus VIAL] 5 units SUB-Q QHS #1 units 02/21/21 Unknown Rx Lispro Insulin [HumaLOG] See Protocol SUB-Q Q6HR #1 vial 02/21/21 Unknown Rx Scopolamine [Transderm-Scop] 1 each TD Q3D #10 patch 02/21/21 Unknown Rx Dicyclomine [Bentyl] 10 mg PO QID 10 Days oral.liqd 03/28/21 Unknown Rx HYDROcodone/ACETAMINOPHEN 15 ml PO Q6H PRN #150 ml 03/28/21 Unknown Rx [Hydrocodone-Acetamn 7.5-325/15] Triamcinolone 0.1% [Kenalog 0.1% 1 applic TP DAILY #1 tube 03/28/21 Unknown Rx CREAM] cloNIDine-TTS PATCH [Catapres-Tts 0.3 mg TD Tu #4 patch 03/28/21 Unknown Rx 0.3mg Patch] Epoetin Maurice-Epbx 20,000 [Retacrit] 20,000 unit IV RY[place] PRN vial 05/11/21 Unknown Rx Famotidine [Pepcid] 20 mg PO QAM tablet 05/11/21 Unknown Rx dexAMETHasone [Decadron] 6 mg PO DAILY tablet 05/11/21 Unknown Rx Allergies Allergy/AdvReac Type Severity Reaction Status Date / Time No Known Allergies Allergy Verified 05/17/21 12:08 ED Review of Systems ROS: Stated complaint: DIALYSIS Other details as noted in HPI Comment: All other systems reviewed and negative Constitutional: denies: chills, fever Respiratory: denies: cough, shortness of breath, SOB with exertion, SOB at rest Cardiovascular: denies: chest pain, palpitations Gastrointestinal: denies: abdominal pain, nausea, vomiting, diarrhea, constipation, hematemesis, melena, hematochezia Musculoskeletal: denies: back pain Neurological: denies: headache, weakness, numbness, paresthesias, confusion, abnormal gait ED Past Medical Hx - Past Medical History Hx Hypertension: Yes Hx Heart Attack/AMI: No Hx Congestive Heart Failure: Yes ([place] 2013) Hx Diabetes: No Hx Pulmonary Embolism: Yes (02/2021) Hx GERD: Yes Hx Renal Disease: Yes Hx Sickle Cell Disease: No Hx Headaches / Migraines: Yes Hx Seizures: No Hx Asthma: No Hx COPD: No Hx Dementia: No Hx HIV: No Additional medical history: Crohns - Surgical History Hx Cholecystectomy: Yes ([place] 1998) Hx Appendectomy: Yes ([place] 2007) - Social History Smoking Status: Former Smoker Substance Use Type: Alcohol - Medications Home Medications: Home Medications Medication Instructions Recorded Confirmed Last Taken Type Albuterol Mdi (or & Nicu Only) 2 puff IH QID PRN #1 inhalation 04/01/17 05/05/21 10/31/20 09:00 Rx [ProAir HFA Inhaler] Calcium Acetate 667 mg PO DAILY 04/20/20 05/05/21 10/31/20 09:00 History Centrum Men's Tablet 1 tab PO DAILY 04/20/20 05/05/21 10/31/20 09:00 History Cinacalcet 30 mg PO DAILY 04/20/20 05/05/21 10/31/20 09:00 History Dialyvite with Zinc Tablet 1 tab PO DAILY 04/20/20 05/05/21 10/31/20 09:00 History Magnesium 250 mg PO BID 04/20/20 05/05/21 10/31/20 17:00 History Triamcinolone 0.1% 1 1000units TRANSDERMA DAILY 04/20/20 05/05/21 10/31/20 09:00 History Vit B12/Folic Acid/B6/Aa No.15 1,000 mg PO DAILY 04/20/20 05/05/21 10/31/20 09:00 History AtorvaSTATin 40 mg PO HS 11/01/20 05/05/21 10/31/20 21:00 History Diclofenac 1 applic TRANSDERMA QID 11/01/20 05/05/21 10/31/20 19:00 History Vitamin D3 2,000 units PO QDAY 11/01/20 05/05/21 10/31/20 09:00 History carvediloL 12.5 mg PO DAILY 11/01/20 05/05/21 10/31/20 09:00 History Fluticasone Propionate 1 spray INTRANASAL DAILY #1 02/21/21 05/05/21 Unknown Rx Insulin Glargine [Lantus VIAL] 5 units SUB-Q QHS #1 units 02/21/21 05/05/21 Unknown Rx Lispro Insulin [HumaLOG] See Protocol SUB-Q Q6HR #1 vial 02/21/21 05/05/21 Unknown Rx Scopolamine [Transderm-Scop] 1 each TD Q3D #10 patch 02/21/21 05/05/21 Unknown Rx Dicyclomine [Bentyl] 10 mg PO QID 10 Days oral.liqd 03/28/21 05/05/21 Unknown Rx HYDROcodone/ACETAMINOPHEN 15 ml PO Q6H PRN #150 ml 03/28/21 05/05/21 Unknown Rx [Hydrocodone-Acetamn 7.5-325/15] Triamcinolone 0.1% [Kenalog 0.1% 1 applic TP DAILY #1 tube 03/28/21 05/05/21 Unknown Rx CREAM] cloNIDine-TTS PATCH [Catapres-Tts 0.3 mg TD Tu #4 patch 03/28/21 05/05/21 Unknown Rx 0.3mg Patch] Epoetin Maurice-Epbx 20,000 [Retacrit] 20,000 unit IV RYLAND PRN vial 05/11/21 Unknown Rx Famotidine [Pepcid] 20 mg PO QAM tablet 05/11/21 Unknown Rx dexAMETHasone [Decadron] 6 mg PO DAILY tablet 05/11/21 Unknown Rx ED Physical Exam - General Limitations: No Limitations General appearance: alert, in no apparent distress - Head Head exam: Present: atraumatic, normocephalic, normal inspection - Eye Eye exam: Present: normal appearance, PERRL - ENT ENT exam: Present: normal exam, normal orophraynx, mucous membranes moist - Neck Neck exam: Present: normal inspection, full ROM. Absent: tenderness, meningismus - Respiratory Respiratory exam: Present: normal lung sounds bilaterally - Cardiovascular Cardiovascular Exam: Present: regular rate, normal rhythm, normal heart sounds - GI/Abdominal GI/Abdominal exam: Present: soft, normal bowel sounds. Absent: distended, tenderness, guarding, rebound, rigid, organomegaly, mass, bruit, pulsatile mass, hernia - Extremities Exam Extremities exam: Present: normal inspection, full ROM, normal capillary refill. Absent: tenderness, pedal edema, joint swelling, calf tenderness - Back Exam Back exam: Present: normal inspection, full ROM. Absent: CVA tenderness (R), CVA tenderness (L) - Neurological Exam Neurological exam: Present: alert, oriented X3, CN II-XII intact, normal gait, r eflexes normal. Absent: motor sensory deficit - Psychiatric Psychiatric exam: Present: normal mood - Skin Skin exam: Present: warm, intact, normal color ED Course Vital Signs 05/22/21 11:04 Temperature 98.2 F Pulse Rate 63 Respiratory 20 Rate Blood Pressure 97/64 [Left] O2 Sat by Pulse 100 Oximetry ED Medical Decision Making - Lab Data Result diagrams: 05/22/21 12:17 05/22/21 12:17 - Medical Decision Making Patient is 60 years old male with history of end-stage renal disease on hemodialysis. Patient presented to the ER asking for dialysis. Patient stated that last dialysis was on . Patient currently denying any complaint. Patient denied any chest pain or shortness of breath. No nausea or vomiting. Patient stated that he is not assigned a chair for dialysis yet. Patient was seen here several times for similar presentation. Patient remained stable in the ER with a stable vital signs and no complaint. Labs reviewed and showed a potassium of 3.1. Patient is not showing any shortness of breath or signs of volume overload. Potassium is 3.1. There is no indication for emergency dialysis. I discussed with the patient the need to follow-up as an outpatient for dialysis and advised to return to the ER if he develop any new symptoms. Critical care attestation.: If time is entered above; I have spent that time in minutes in the direct care of this critically ill patient, excluding procedure time. ED Disposition Clinical Impression: End-stage renal disease on hemodialysis Disposition: HOME / SELF CARE / HOMELESS Is pt being admited?: No Condition: Stable Instructions: Hemodialysis, [id number] Referrals: PRIMARY CARE, [Primary Care Provider] - 3-5 Days
[2021-05-22 13:18] LABS: Calcium 9.5 mg/dL (8.4-10.2)
[2021-05-22 13:35] LABS: Basophils % (Auto) 0.7 % (0.0-1.8); Eosinophils # (Auto) 0.2 K/mm3 (0.0-0.4); Eosinophils % (Auto) 3.3 % (0.0-4.3); Hematocrit 29.5 % (35.5-45.6); Lymphocytes # (Auto) 1.2 K/mm3 (1.2-5.4); Lymphocytes % (Auto) 15.7 % (13.4-35.0); Mean Corpuscular HGB Conc 34 % (32-34); Mean Corpuscular Volume 95 fl (84-94); Monocytes # (Auto) 0.5 K/mm3 (0.0-0.8); Monocytes % (Auto) 6.8 % (0.0-7.3); Platelet Count 235 K/mm3 (140-440); Red Blood Count 3.09 M/mm3 (3.65-5.03); Red Cell Distribution Width 17.1 % (13.2-15.2)
== END 2021-05-22 16:19 | disposition home or self-care (01) ==
LOC: ED 10:48
DX: I13.2 Hypertensive heart and chronic kidney disease with heart failure and with stage 5 chronic kidney disease, or end stage renal disease (principal); N18.6 End stage renal disease; Z99.2 Dependence on renal dialysis; I26.99 Other pulmonary embolism without acute cor pulmonale; K21.9 Gastro-esophageal reflux disease without esophagitis; G43.909 Migraine, unspecified, not intractable, without status migrainosus; K50.90 Crohn's disease, unspecified, without complications; Z90.89 Acquired absence of other organs; Z98.890 Other specified postprocedural states; Z87.891 Personal history of nicotine dependence
CPT/HCPCS: 36415; 80048; 85025; 99283

== ENCOUNTER 2021-05-29 11:17 | Outpatient (CLI) | payer MEDICARE ==
[2021-05-29] MEDS ORDERED: SILVER NITRATE APPLICATOR 1 EA TP ONE (14:00)
== END 2021-05-29 11:18 | disposition home or self-care (01) ==
LOC: WOUND 11:17
PROVIDERS: ATTEND Surgery
DX: K91.89 Other postprocedural complications and disorders of digestive system (principal); K63.2 Fistula of intestine; J45.909 Unspecified asthma, uncomplicated; N19 Unspecified kidney failure; Z87.891 Personal history of nicotine dependence; Y83.8 Other surgical procedures as the cause of abnormal reaction of the patient, or of later complication, without mention of misadventure at the time of the procedure
CPT/HCPCS: 99205; G0463; G0463-25

== ENCOUNTER 2021-06-26 10:56 | Outpatient (CLI) | payer MEDICARE | END 2021-06-26 10:57 | disposition home or self-care (01) | LOC: WOUND 10:56 | PROVIDERS: ATTEND Surgery | DX: K91.89 Other postprocedural complications and disorders of digestive system (principal); K63.2 Fistula of intestine; J45.909 Unspecified asthma, uncomplicated; N19 Unspecified kidney failure; Z87.891 Personal history of nicotine dependence; Y83.8 Other surgical procedures as the cause of abnormal reaction of the patient, or of later complication, without mention of misadventure at the time of the procedure | CPT/HCPCS: 17250 ==

== ENCOUNTER 2021-08-07 11:51 | Outpatient (CLI) | payer MEDICARE ==
[2021-08-07] MEDS ORDERED: SILVER NITRATE APPLICATOR 1 EA TP ONE (13:00)
== END 2021-08-07 11:52 | disposition home or self-care (01) ==
LOC: WOUND 11:51
PROVIDERS: ATTEND Surgery
DX: K91.89 Other postprocedural complications and disorders of digestive system (principal); K63.2 Fistula of intestine; J45.909 Unspecified asthma, uncomplicated; N19 Unspecified kidney failure; Z87.891 Personal history of nicotine dependence; Y83.8 Other surgical procedures as the cause of abnormal reaction of the patient, or of later complication, without mention of misadventure at the time of the procedure
CPT/HCPCS: 17250; G0463; 99212

== ENCOUNTER 2021-08-30 14:54 | Outpatient (CLI) | payer MEDICARE ==
[2021-08-30 15:29] LABS: Basophils % (Auto) 0.7 % (0.0-1.8); Eosinophils # (Auto) 0.1 K/mm3 (0.0-0.4); Eosinophils % (Auto) 2.9 % (0.0-4.3); Hemoglobin 11.3 gm/dl (11.8-15.2); Lymphocytes # (Auto) 0.7 K/mm3 (1.2-5.4); Mean Corpuscular HGB Conc 30 % (32-34); Mean Corpuscular Volume 95 fl (84-94); Monocytes # (Auto) 0.4 K/mm3 (0.0-0.8); Monocytes % (Auto) 9.8 % (0.0-7.3); Platelet Count 323 K/mm3 (140-440); Red Blood Count 3.94 M/mm3 (3.65-5.03); Red Cell Distribution Width 15.5 % (13.2-15.2)
[2021-08-30 15:30] LABS: Hematocrit 37.2 % (35.5-45.6)
[2021-08-30 15:55] LABS: Albumin 2.9 g/dL (3.9-5); Calcium 9.2 mg/dL (8.4-10.2)
--- NOTE | 2021-08-30 16:35 | Cat Scan Report ---
CT ABDOMEN AND PELVIS WITH CONTRAST HISTORY: ABD PAIN 100 ML OMNI 300 . COMPARISON: CT abdomen/pelvis from 05/02/2021 TECHNIQUE: CT images of the abdomen and pelvis were obtained following administration of intravenous contrast. All CT scans at this location are performed using CT dose reduction for ALARA by means of automated exposure control. CONTRAST: 100 ml of intravenous contrast administered. FINDINGS: Lungs/bones: Lung bases are clear. There are degenerative changes in the spine and pelvis with no ac antonette osseous abnormality identified. There is partial ankylosis of both SI joints and the bones are di ffusely sclerotic. Abdomen/pelvis: The gallbladder surgically absent. The liver, spleen, and pancreas are unremarkable. The kidneys are severely atrophic with multiple simple bilateral renal cysts. Extensive retroperito stanton adenopathy again noted. There is severe inflammatory change or bowel wall thickening involving the distal small bowel and pro ximal colon in this patient with previous bowel resection change and at least 2-3 anastomotic sites. There is either a fistula or a tiny ostomy going to the right lower quadrant where there is a fecal b ag. Tiny foci of gas are seen in this area, similar to the previous exam. There is also a punctate fo cus of gas tracking and some fluid near the inferior liver tip. Urinary bladder is mostly collapsed and therefore not well seen. Prostate is enlarged but otherwise u nremarkable. There is colonic diverticulosis with mild wall thickening in the mid sigmoid adjacent to old inflammation seen with the distal small bowel. This may be reactive. IMPRESSION: 1. Severe inflammation involving the distal small bowel in this patient with extensive postoperative change. 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 Again a fistulous favored although very early dehiscence could be a consi deration. COMMUNICATION: Time of Communication (RAILROAD [employer]ER/CDT): 3:30 pm Licensed Practitioner Receiving Report: Dr. Sanchez Signer Name: Damon Rico MD Signed: 08/30/2021 4:31 PM Workstation Name: [id number]
== END 2021-08-30 14:55 | disposition home or self-care (01) ==
LOC: CT 14:54
PROVIDERS: ATTEND Surgery
DX: N28.1 Cyst of kidney, acquired (principal); N26.1 Atrophy of kidney (terminal); K44.9 Diaphragmatic hernia without obstruction or gangrene; K57.30 Diverticulosis of large intestine without perforation or abscess without bleeding; M43.28 Fusion of spine, sacral and sacrococcygeal region; M47.816 Spondylosis without myelopathy or radiculopathy, lumbar region; Z90.49 Acquired absence of other specified parts of digestive tract
CPT/HCPCS: 36415; 74177; 80053; 85025; Q9967

== ENCOUNTER 2021-09-11 11:00 | Outpatient (CLI) | payer MEDICARE | END 2021-09-11 11:01 | disposition home or self-care (01) | LOC: WOUND 11:00 | PROVIDERS: ATTEND Surgery | DX: K91.89 Other postprocedural complications and disorders of digestive system (principal); K63.2 Fistula of intestine; J45.909 Unspecified asthma, uncomplicated; N19 Unspecified kidney failure; Z87.891 Personal history of nicotine dependence; Y83.8 Other surgical procedures as the cause of abnormal reaction of the patient, or of later complication, without mention of misadventure at the time of the procedure | CPT/HCPCS: 17250; G0463; 99212 ==

== ENCOUNTER 2022-02-08 15:43 | Outpatient (CLI) | payer MEDICARE | END 2022-02-08 15:44 | disposition home or self-care (01) | LOC: LAB 15:43 | PROVIDERS: ATTEND Surgery | DX: A09 Infectious gastroenteritis and colitis, unspecified (principal) | CPT/HCPCS: 87045; 87177; 87493 ==

== ENCOUNTER 2022-03-07 11:58 | Outpatient (CLI) | payer MEDICARE ==
--- NOTE | 2022-03-07 21:15 | Cat Scan Report ---
CT ABDOMEN AND PELVIS WITH CONTRAST INDICATION / CLINICAL INFORMATION: R10.30 LOWER ABDOMINAL PAIN R19.7 DIARRHEA,UNSPECIFIED. TECHNIQUE: Axial CT images were obtained through the abdomen and pelvis after 100 cc Omnipaque [address] scans at this location are performed using CT dose reduction for ALARA by means of automated exposure control. COMPARISON: CT abdomen and pelvis with contrast from 08/30/2021. FINDINGS: LOWER CHEST: There is stable cardiomegaly with a small pericardial effusion. No other significant abn ormality. LIVER: No significant abnormality. GALLBLADDER: Surgically absent. BILE DUCTS: No significant abnormality. PANCREAS: No significant abnormality. SPLEEN: No significant abnormality. ADRENALS: No significant abnormality. RIGHT KIDNEY/URETER: Advanced right renal atrophy is again seen with multiple unchanged right renal c ysts. No other significant abnormality. LEFT KIDNEY/URETER: Advanced left renal atrophy is again seen with multiple left renal cysts that are unchanged. No other significant abnormality. STOMACH/SMALL BOWEL: No significant abnormality of the stomach. Severe inflammation is again seen faby ng the distal small bowel with severe wall thickening and an associated abscess involving distal smal l bowel loops seen to the right of midline and extending anteriorly to contact the abdominal wall on images 97 through 120 of series 2. The abscess measures approximately 6 x 3 cm. Previously seen findi ngs of a possible fistula adjacent to the anastomotic site are not clearly visualized on this study. No other acute findings. COLON: There is noninflamed generalized diverticulosis. No other significant abnormality. Right hemic olectomy changes are again noted. APPENDIX: Surgically absent. PERITONEUM: No fluid collection is identified elsewhere in the abdomen or pelvis. No significant free fluid. No large amount of free air. LYMPH NODES: No significant adenopathy. VASCULATURE: No acute findings. There is mild atherosclerosis. URINARY BLADDER: Collapsed and not well evaluated. REPRODUCTIVE ORGANS: No significant abnormality. ADDITIONAL FINDINGS: None. BONES: No significant abnormality IMPRESSION: 1. Severe enteritis with an associated distal small bowel abscess described above. 2. Additional findings as above. Dr. Ho provided a written prelim report at the time that this scan was performed. Signer Name: Kel Velázquez MD Signed: 03/07/2022 9:11 PM Workstation Name: [id number]
== END 2022-03-07 11:59 | disposition home or self-care (01) ==
LOC: CT 11:58
PROVIDERS: ATTEND Surgery
DX: N28.1 Cyst of kidney, acquired (principal); N26.1 Atrophy of kidney (terminal); I51.7 Cardiomegaly; R19.7 Diarrhea, unspecified; K57.30 Diverticulosis of large intestine without perforation or abscess without bleeding; I70.0 Atherosclerosis of aorta; K52.9 Noninfective gastroenteritis and colitis, unspecified; Z90.49 Acquired absence of other specified parts of digestive tract
CPT/HCPCS: 36415; 74177; 82550; Q9967

== ENCOUNTER 2022-03-12 08:24 | Inpatient (IN) | payer OTHER, MEDICARE ==
[2022-03-12] MEDS ORDERED: MORPHINE 4 MG/1 ML INJ IV ONE (09:28)
[2022-03-12] MEDS ORDERED: SODIUM CHLORIDE 0.9% 1000 ML 1,000 ML IV ONE (09:28)
[2022-03-12] MEDS ORDERED: ONDANSETRON 4 MG/2 ML INJ IV ONE (09:28)
[2022-03-12] MEDS ORDERED: metroNIDAZOLE/NS 500 MG/100 ML 500 MG/100 ML BAG IV ONE (09:30)
[2022-03-12] MEDS ORDERED: cefTRIAXone/NS 1 GM/50 ML 1 GM/50 ML BAG IV ONE (09:30)
--- NOTE | 2022-03-12 09:49 | Emergency Department Report ---
ED Abdominal Pain HPI - General Chief Complaint: Abdominal Pain Stated Complaint: BOWL ABSTRACTION/ABD PAIN Time Seen by Provider: 03/12/22 09:04 Source: patient, EMS Mode of arrival: Stretcher Limitations: No Limitations - History of Present Illness Initial Comments: 61 yo M with history of complicated abdominal surgery with long stay in the hospital postsurgical who now present with right lower abdominal pain that started 5-6 days ago and progressively worsening at this point. Pt had an out patient CT abd/pel on Saturday that shows severe enteritis and possible small bowel abscess. Pt's surgeon Dr Sanchez saw the CT result and called patient for admission but says he was going to another hospital for second opinion. He did went to [facility] but says the hospital evaluated him and told him the same thing. At that point he decided to return here for his care. Pain is worsening the last 24 hours. No fever or chills reported. No other modifying or associated factors reported. Severity scale (0 -10): 8 - Related Data Home Medications Medication Instructions Recorded Confirmed Last Taken Calcium Acetate 667 mg PO DAILY 04/20/20 03/12/22 1 Day Ago ~03/11/22 Dialyvite with Zinc Tablet 1 tab PO DAILY 04/20/20 03/12/22 1 Day Ago ~03/11/22 AtorvaSTATin 40 mg PO HS 11/01/20 03/12/22 1 Day Ago ~03/11/22 Pantoprazole Sodium 40 mg PO DAILY 12/19/21 03/12/22 1 Day Ago ~03/11/22 Amlodipine Besylate [Norvasc] 5 mg PO 03/12/22 1 Day Ago ~03/11/22 Loperamide [Imodium] 2 mg PO 03/12/22 Unknown Sucralfate [Carafate] 1 gm PO ACHS 03/12/22 03/12/22 Unknown cloNIDine-TTS PATCH [Catapres-Tts 1 patch TD Q7D 03/12/22 03/12/22 Unknown 0.3mg Patch] Previous Rx's Medication Instructions Recorded Last Taken Type Losartan [Cozaar] 100 mg PO QDAY 30 Days 12/20/21 03/11/22 Rx carvediloL 25 mg PO DAILY #60 12/20/21 1 Day Ago Rx ~03/11/22 Allergies Allergy/AdvReac Type Severity Reaction Status Date / Time No Known Allergies Allergy Verified 03/12/22 08:54 ED Review of Systems ROS: Stated complaint: BOWL ABSTRACTION/ABD PAIN Other details as noted in HPI Comment: All other systems reviewed and negative Gastrointestinal: abdominal pain, nausea. denies: vomiting, diarrhea, c onstipation ED Past Medical Hx - Past Medical History Previous Medical History?: Yes Hx Hypertension: Yes Hx CVA: No Hx Heart Attack/AMI: No Hx Congestive Heart Failure: Yes (IN 2013) Hx Diabetes: No Hx Deep Vein Thrombosis: No Hx Pulmonary Embolism: Yes (02/2021) Hx GERD: Yes Hx Liver Disease: No Hx Renal Disease: Yes Hx of Cancer: No Hx Sickle Cell Disease: No Hx Arthritis: No Hx Headaches / Migraines: Yes Hx Seizures: No Hx Kidney Stones: No Hx Psychiatric Treatment: No Hx Asthma: No Hx COPD: No Hx Tuberculosis: No Hx Dementia: No Hx HIV: No Additional medical history: Crohns, bowel obstruction, colostomi bag reveral - Surgical History Past Surgical History?: No Hx Coronary Stent: No Hx Open Heart Surgery: No Hx Pacemaker: No Hx Internal Defibrillator: No Hx Cholecystectomy: Yes (IN 1998) Hx Appendectomy: Yes (IN 2007) Hx Breast Surgery: No Additional Surgical History: 2020-GANGRENE INFECTION IN SMALL BOWEL LEADING TO SMALL BOWEL RESECTION - Social History Smoking Status: Former Smoker Substance Use Type: None - Medications Home Medications: Home Medications Medication Instructions Recorded Confirmed Last Taken Type Calcium Acetate 667 mg PO DAILY 04/20/20 03/12/22 1 Day Ago History ~03/11/22 Dialyvite with Zinc Tablet 1 tab PO DAILY 04/20/20 03/12/22 1 Day Ago History ~03/11/22 AtorvaSTATin 40 mg PO HS 11/01/20 03/12/22 1 Day Ago History ~03/11/22 Pantoprazole Sodium 40 mg PO DAILY 12/19/21 03/12/22 1 Day Ago History ~03/11/22 Losartan [Cozaar] 100 mg PO QDAY 30 Days 12/20/21 03/12/22 03/11/22 Rx carvediloL 25 mg PO DAILY #60 12/20/21 03/12/22 1 Day Ago Rx ~03/11/22 Amlodipine Besylate [Norvasc] 5 mg PO 03/12/22 1 Day Ago History ~03/11/22 Loperamide [Imodium] 2 mg PO 03/12/22 Unknown History Sucralfate [Carafate] 1 gm PO ACHS 03/12/22 03/12/22 Unknown History cloNIDine-TTS PATCH [Catapres-Tts 1 patch TD Q7D 03/12/22 03/12/22 Unknown History 0.3mg Patch] ED Physical Exam - General Limitations: No Limitations General appearance: alert, in no apparent distress - Head Head exam: Present: normal inspection - Eye Eye exam: Present: normal appearance Pupils: Present: normal accommodation - ENT ENT exam: Present: normal exam, normal orophraynx - Neck Neck exam: Present: normal inspection, tenderness - Respiratory Respiratory exam: Present: normal lung sounds bilaterally, respiratory distress - Cardiovascular Cardiovascular Exam: Present: regular rate, normal rhythm - GI/Abdominal GI/Abdominal exam: Present: soft, tenderness (left lower abdomen with some distension in this area consistent with likely bowel hernia) - Extremities Exam Extremities exam: Present: normal inspection, full ROM, normal capillary refill. Absent: tenderness - Back Exam Back exam: Absent: tenderness - Neurological Exam Neurological exam: Present: alert, oriented X3 - Psychiatric Psychiatric exam: Present: normal affect. Absent: depressed - Skin Skin exam: Present: warm, intact ED Course Vital Signs 03/12/22 03/12/22 08:24 09:04 Temperature 97.8 F Pulse Rate 88 81 Respiratory 18 18 Rate Blood Pressure 140/75 Blood Pressure 158/76 140/75 [Left] O2 Sat by Pulse 96 98 Oximetry - Reevaluation(s) Reevaluation #1: 03/12/22 09:52 here with abdominal pain --and noted RLQ tenderness with h/o appendectomy this is likely bowel hernia-- so will go ahead and give pain medication and iv ns 250 cc bolus and order the routine abdominal labs and imaging Reevaluation #2: 03/12/22 09:55 I call and consult with Dr Adri Sanchez who knows this patient well--she confirmed that she called the patient for admission but he refused due to wanting to seek second opinion. She wanted routine labs and have patient admitted to the hospitalist and she planned to consult the IR for drainage. Reevaluation #3: 03/12/22 12:41 Noted with elevated BUN/Cr 44/11.6 with H/H 7.8/23.7 likely as a result of acute on chronic renal failure-- also noted with slightly low k at 3.2-- CT abd/pel still pending as this time-- Reevaluation #4: 03/12/22 13:38 CT abd/pel resulted and confirmed the intraabdominal abscess-- So Dr Hung consulted who accept pt for further evaluation and treatment - Consultations Consultation #1: 03/12/22 10:00 Dr Adri Sanchez bariatric surgeon Consultation #2: 03/12/22 13:39 Dr Hung the hospitalist accept pt ED Medical Decision Making - Lab Data Result diagrams: 03/12/22 09:52 03/12/22 09:52 - Radiology Data FINDINGS: LOWER CHEST: No significant abnormality. AORTA / ARTERIES: Mild atherosclerotic calcification without acute abnormality. IVC / VEINS: No significant abnormality. LYMPH NODES: Multiple right lower quadrant lymph nodes. COLON: Post interval change to the proximal colon. APPENDIX: Appendectomy. STOMACH / SMALL BOWEL: Again noted within the right lower quadrant is marked bowel wall thickening with adjacent inflammation. Additionally, there is interval increase in size of a perienteric abscess. This abscess now extends through the anterior abdominal wall and is within the subcutaneous tissues overlying the lower abdomen. This abscess measures at least 3.1 x 8.6 x 6.7 cm. PERITONEUM: No free fluid. No free air. LIVER: No significant abnormality. GALLBLADDER: Cholecystectomy. BILE DUCTS: No significant abnormality. PANCREAS: No significant abnormality. SPLEEN: No significant abnormality. ADRENALS: No significant abnormality. RIGHT KIDNEY / URETER: Polycystic kidney. No acute findings. LEFT KIDNEY / URETER: Polycystic kidney. No acute findings. URINARY BLADDER: No significant abnormality. REPRODUCTIVE ORGANS: No significant abnormality. SKELETAL SYSTEM: No significant abnormality. ADDITIONAL FINDINGS: None. IMPRESSION: 1. Worsening perienteric intra-abdominal abscess adjacent to the distal small bowel which now extends through the anterior abdominal musculature and has a subcutaneous portion. Redemonstrated marked enteritis of the distal small bowel. Signer Name: Homer Lock, - Medical Decision Making Here with abdominal pain and noted with tenderness at the RLQ with distension and protusion in that area likely consistent with bowel hernia and other differential could be but not limited to diverticulitis, cholecystitis, cholelithiasis, nephrolithiasis, gastritis, pancreatitis, duodenitis, colitis, irritable bowel syndrome, cystitis, so in order to rule this out we will go ahead and order routine acute abdomen that include CBC, CMP, urinalysis, and CT imaging of the abdomen/pelvic. Critical care attestation.: If time is entered above; I have spent that time in minutes in the direct care of this critically ill patient, excluding procedure time. ED Disposition Clinical Impression: Intra-abdominal abscess Abdominal hernia Qualifiers: Hernia type: unspecified Obstruction and gangrene presence: without obstruction or gangrene Recurrence: not specified as recurrent Qualified Code(s): K46.9 - Unspecified abdominal hernia without obstruction or gangrene Abdominal pain Qualifiers: Abdominal location: right lower quadrant Qualified Code(s): R10.31 - Right lower quadrant pain Disposition: 09 ADMITTED INPATIENT Is pt being admited?: Yes Does the pt Need Aspirin: No Condition: Stable Referrals: TALITA DE LA CRUZ MD [Primary Care Provider] - 3-5 Days Time of Disposition: 13:40
[2022-03-12 10:39] LABS: Basophils % (Auto) 0.2 % (0.0-1.8); Eosinophils % (Auto) 0.4 % (0.0-4.3); Hematocrit 23.7 % (35.5-45.6); Hemoglobin 7.8 gm/dl (11.8-15.2); Lymphocytes # (Auto) 0.4 K/mm3 (1.2-5.4); Lymphocytes % (Auto) 4.3 % (13.4-35.0); Mean Corpuscular HGB Conc 33 % (32-34); Mean Corpuscular Volume 91 fl (84-94); Monocytes % (Auto) 10.7 % (0.0-7.3); Platelet Count 197 K/mm3 (140-440); Red Blood Count 2.61 M/mm3 (3.65-5.03); Red Cell Distribution Width 15.5 % (13.2-15.2)
[2022-03-12 10:50] LABS: Calcium 6.5 mg/dL (8.4-10.2)
[2022-03-12 10:51] LABS: INR 1.59 (0.87-1.13)
[2022-03-12 10:56] LABS: Albumin 1.6 g/dL (3.9-5)
[2022-03-12 11:07] LABS: Alanine Aminotransferase < 5 units/L (7-56); Bilirubin,Direct < 0.2 mg/dL (0-0.2)
--- NOTE | 2022-03-12 12:19 | Consultation ---
History of Present Illness Consult date: 03/12/22 Reason for consult: abdominal pain - History of present illness History of present illness: 61 year old male well know to me presented to ER stef abdominal pain. I had seen him iin the office several weeks ago and ordered an outpatient CT that he just got last Saturday. i was unaware he had the CT because he had missed his initi al CT appointment the week prior. He called on Saturday saying that he got his CT. I reviewed the images and report and he was noted to have RLQ abscess collection with surrounding enteritis. He was called back to advise him to go the the ER for admission, abx, and and evaluation for Ir drainage. He told the office that he was going to [facility] for second opinion. He left that ER AMA after they 'cheko d him the same thing he was advised to do here." He says the pain has gotten worse over the last 24 hours. He has diarrhea and some intermittent nausea. 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), Other Social history: Lives alone Medications and Allergies Allergies Allergy/AdvReac Type Severity Reaction Status Date / Time No Known Allergies Allergy Verified 03/12/22 08:54 Home Medications Medication Instructions Recorded Confirmed Last Taken Type Calcium Acetate 667 mg PO DAILY 04/20/20 03/12/22 1 Day Ago History ~03/11/22 Dialyvite with Zinc Tablet 1 tab PO DAILY 04/20/20 03/12/22 1 Day Ago History ~03/11/22 AtorvaSTATin 40 mg PO HS 11/01/20 03/12/22 1 Day Ago History ~03/11/22 Pantoprazole Sodium 40 mg PO DAILY 12/19/21 03/12/22 1 Day Ago History ~03/11/22 Losartan [Cozaar] 100 mg PO QDAY 30 Days 12/20/21 03/12/22 03/11/22 Rx carvediloL 25 mg PO DAILY #60 12/20/21 03/12/22 1 Day Ago Rx ~03/11/22 Amlodipine Besylate [Norvasc] 5 mg PO 03/12/22 1 Day Ago History ~03/11/22 Loperamide [Imodium] 2 mg PO 07/18/22 Unknown History Sucralfate [Carafate] 1 gm PO ACHS 03/12/22 03/12/22 Unknown History cloNIDine-TTS PATCH [Catapres-Tts 1 patch TD Q7D 03/12/22 03/12/22 Unknown History 0.3mg Patch] Active Meds: Active Medications Sodium Chloride (Nacl 0.9% 1000 Ml) 1,000 mls @ 250 mls/hr IV ONCE ONE Stop: 03/12/22 13:27 Last Admin: 03/12/22 09:48 Dose: 250 mls/hr Review of Systems All systems: negative - Constitutional poor appetite - Gastrointestinal abdominal pain, nausea, diarrhea Exam Vital Signs Temp Pulse Resp BP Pulse Ox 97.8 F 88 18 158/76 96 03/12/22 08:24 03/12/22 08:24 03/12/22 08:24 03/12/22 08:24 03/12/22 08:24 - General physical appearance Positive: no distress, moderate pain, chronically ill - Eyes Positive: PERRL. Negative: icteric - Respiratory Positive: normal expansion, normal respiratory effort - Cardiovascular Heart Sounds: Present: S1 & S2 - Extremities Extremities: no ischemia - Abdomen Abdomen: Present: soft, tender, other (firm tender mass RLQ, well healed mid line scar). Absent: distended, guarding Results - Labs 03/12/22 09:52 03/12/22 09:52 Abnormal lab results 03/12/22 03/12/22 03/12/22 Range/Units 09:52 09:52 09:52 RBC 2.61 L (3.65-5.03) M/mm3 Hgb 7.8 L (11.8-15.2) gm/dl Hct 23.7 L (35.5-45.6) % RDW 15.5 H (13.2-15.2) % Lymph % (Auto) 4.3 L (13.4-35.0) % [place] % (Auto) 10.7 H (0.0-7.3) % Lymph # (Auto) 0.4 L (1.2-5.4) K/mm3 [place] # (Auto) 1.0 H (0.0-0.8) K/mm3 Seg Neutrophils % 84.4 H (40.0-70.0) % Seg Neutrophils # 7.8 H (1.8-7.7) K/mm3 PT 20.9 H (12.2-14.9) Sec. INR 1.59 H (0.87-1.13) Potassium (3.6-5.0) mmol/L Chloride (98-107) mmol/L Carbon Dioxide (22-30) mmol/L BUN (9-20) mg/dL Creatinine (0.8-1.3) mg/dL Glucose (75-100) mg/dL Calcium (8.4-10.2) mg/dL ALT < 5 L (7-56) units/L Total Protein 4.6 L (6.3-8.2) g/dL Albumin 1.6 L (3.9-5) g/dL Lipase (13-60) units/L 03/12/22 Range/Units 09:52 RBC (3.65-5.03) M/mm3 Hgb (11.8-15.2) gm/dl Hct (35.5-45.6) % RDW (13.2-15.2) % Lymph % (Auto) (13.4-35.0) % [place] % (Auto) (0.0-7.3) % Lymph # (Auto) (1.2-5.4) K/mm3 [place] # (Auto) (0.0-0.8) K/mm3 Seg Neutrophils % (40.0-70.0) % Seg Neutrophils # (1.8-7.7) K/mm3 PT (12.2-14.9) Sec. INR (0.87-1.13) Potassium 3.2 L (3.6-5.0) mmol/L Chloride 110.7 H (98-107) mmol/L Carbon Dioxide 18 L (22-30) mmol/L BUN 44 H (9-20) mg/dL Creatinine 11.6 H (0.8-1.3) mg/dL Glucose 64 L (75-100) mg/dL Calcium 6.5 L (8.4-10.2) mg/dL ALT (7-56) units/L Total Protein (6.3-8.2) g/dL Albumin (3.9-5) g/dL Lipase 8 L (13-60) units/L Diabetes panel 03/12/22 03/12/22 Range/Units 09:52 09:52 Sodium 141 (137-145) mmol/L Potassium 3.2 L (3.6-5.0) mmol/L Chloride 110.7 H (98-107) mmol/L Carbon Dioxide 18 L (22-30) mmol/L BUN 44 H (9-20) mg/dL Creatinine 11.6 H (0.8-1.3) mg/dL Glucose 64 L (75-100) mg/dL Calcium 6.5 L (8.4-10.2) mg/dL AST 8 (5-40) units/L ALT < 5 L (7-56) units/L Alkaline Phosphatase 88 (35-129) units/L Total Protein 4.6 L (6.3-8.2) g/dL Albumin 1.6 L (3.9-5) g/dL Calcium panel 03/12/22 03/12/22 Range/Units 09:52 09:52 Calcium 6.5 L (8.4-10.2) mg/dL Albumin 1.6 L (3.9-5) g/dL Pituitary panel 03/12/22 Range/Units 09:52 Sodium 141 (137-145) mmol/L Potassium 3.2 L (3.6-5.0) mmol/L Chloride 110.7 H (98-107) mmol/L Carbon Dioxide 18 L (22-30) mmol/L BUN 44 H (9-20) mg/dL Creatinine 11.6 H (0.8-1.3) mg/dL Glucose 64 L (75-100) mg/dL Calcium 6.5 L (8.4-10.2) mg/dL Adrenal panel 03/12/22 03/12/22 Range/Units 09:52 09:52 Sodium 141 (137-145) mmol/L Potassium 3.2 L (3.6-5.0) mmol/L Chloride 110.7 H (98-107) mmol/L Carbon Dioxide 18 L (22-30) mmol/L BUN 44 H (9-20) mg/dL Creatinine 11.6 H (0.8-1.3) mg/dL Glucose 64 L (75-100) mg/dL Calcium 6.5 L (8.4-10.2) mg/dL Total Bilirubin 0.20 (0.1-1.2) mg/dL AST 8 (5-40) units/L ALT < 5 L (7-56) units/L Alkaline Phosphatase 88 (35-129) units/L Total Protein 4.6 L (6.3-8.2) g/dL Albumin 1.6 L (3.9-5) g/dL - Imaging CT scan - abdomen: pending CT scan - pelvis: pending Assessment and Plan 61 year old male with abdominal pain and intra-abdominal abscess seen on CT 03/07/2022. Afebrile and stable. CT scan being repeated today. consulted IR for evaluation for CT guided drainage. Pt is a high risk surgical candidate for aggressive surgical intervention given his px hx of multiple bowel resections, poor tissue integrity, scar tissue and EC fistula from dehisced anastamosis. Continue abx, ESRD dialysis and management per renal.
--- NOTE | 2022-03-12 12:55 | Cat Scan Report ---
CT ABDOMEN AND PELVIS WITH CONTRAST INDICATION / CLINICAL INFORMATION: Abdominal Pain. TECHNIQUE: Axial CT images were obtained through the abdomen and pelvis after 85 cc of IV contrast. All CT scans at this location are performed using CT dose reduction for ALARA by means of automated e xposure control. COMPARISON: 03/07/2022 FINDINGS: LOWER CHEST: No significant abnormality. AORTA / ARTERIES: Mild atherosclerotic calcification without acute abnormality. IVC / VEINS: No significant abnormality. LYMPH NODES: Multiple right lower quadrant lymph nodes. COLON: Post interval change to the proximal colon. APPENDIX: Appendectomy. STOMACH / SMALL BOWEL: Again noted within the right lower quadrant is marked bowel wall thickening wi th adjacent inflammation. Additionally, there is interval increase in size of a perienteric abscess. This abscess now extends through the anterior abdominal wall and is within the subcutaneous tissues o verlying the lower abdomen. This abscess measures at least 3.1 x 8.6 x 6.7 cm. PERITONEUM: No free fluid. No free air. LIVER: No significant abnormality. GALLBLADDER: Cholecystectomy. BILE DUCTS: No significant abnormality. PANCREAS: No significant abnormality. SPLEEN: No significant abnormality. ADRENALS: No significant abnormality. RIGHT KIDNEY / URETER: Polycystic kidney. No acute findings. LEFT KIDNEY / URETER: Polycystic kidney. No acute findings. URINARY BLADDER: No significant abnormality. REPRODUCTIVE ORGANS: No significant abnormality. SKELETAL SYSTEM: No significant abnormality. ADDITIONAL FINDINGS: None. IMPRESSION: 1. Worsening perienteric intra-abdominal abscess adjacent to the distal small bowel which now extends through the anterior abdominal musculature and has a subcutaneous portion. Redemonstrated marked ent eritis of the distal small bowel. Signer Name: Homer Lock DO Signed: 03/12/2022 12:50 PM Workstation Name: [id number]
--- NOTE | 2022-03-12 13:42 | History and Physical Report ---
History of Present Illness Chief complaint: My stomach hurts History of present illness: 61 YO Male with ESRD on HD(T,R,Sa) last dialyzed on , GERD, Crohn's Disease, Nicotine Dependence, HTN, Systolic CHF(EF 35%), Migraine HULL, PE not on therapeutic anticoagulation presents to ED for evaluation. Patient reports "my stomach hurts". Patient states that he had experienced abdominal pain over the past 6 days and persistent symptoms over the same timeframe. Patient states that pain is 8/10, constant, diffuse, without exacerbating or alleviating factors. Patient was seen and evaluated in his surgeon's office and underwent CT scan and was found to have findings consistent with intra-abdominal abscess. Patient was seen and evaluated at an outside hospital and instructed to seek further care. Patient subsequently seen and evaluated [facility] for the aforementioned symptoms. Patient then elected to seek second opinion at an outside hospital. EMS was subsequently notified and upon arrival the patient was found to be in distress and subsequently transported to [facility] for further care and evaluation of the aforementioned symptoms. The patient was seen and reevaluated in the emergency department. All lab and imaging studies reviewed. Patient underwent CT scan of the abdomen pelvis and was found to have intra- abdominal abscess complicated by abdominal wall cellulitis and abscess, systemic plantar response syndrome, end-stage renal disease in need of dialysis. Surgery team consulted in ED. Nephrology team consulted in ED. Patient denies fever, chills, chest pain, palpitation or productive cough, skin rash and recent contact, known exposure to COVID-19. Prior admission on 12/19/2021 reviewed. A ll medication listed at time of admission has been reconciled. Advanced care planning conducted in ED. 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 denies: alcohol abuse, prescription drug abuse Family history: diabetes, hypertension Medications and Allergies Allergies Allergy/AdvReac Type Severity Reaction Status Date / Time No Known Allergies Allergy Verified 03/12/22 08:54 Home Medications Medication Instructions Recorded Confirmed Last Taken Type Calcium Acetate 667 mg PO DAILY 04/20/20 03/12/22 1 Day Ago History ~03/11/22 Dialyvite with Zinc Tablet 1 tab PO DAILY 04/20/20 03/12/22 1 Day Ago History ~03/11/22 AtorvaSTATin 40 mg PO HS 11/01/20 03/12/22 1 Day Ago History ~03/11/22 Pantoprazole Sodium 40 mg PO DAILY 12/19/21 03/12/22 1 Day Ago History ~03/11/22 Losartan [Cozaar] 100 mg PO QDAY 30 Days 12/20/21 03/12/22 03/11/22 Rx carvediloL 25 mg PO DAILY #60 12/20/21 03/12/22 1 Day Ago Rx ~03/11/22 Amlodipine Besylate [Norvasc] 5 mg PO 03/12/22 1 Day Ago History ~03/11/22 Loperamide [Imodium] 2 mg PO 03/12/22 Unknown History Sucralfate [Carafate] 1 gm PO ACHS 03/12/22 03/12/22 Unknown History cloNIDine-TTS PATCH [Catapres-Tts 1 patch TD Q7D 03/12/22 03/12/22 Unknown Hist ory 0.3mg Patch] Review of Systems Constitutional: no weight gain, no chills, no sweats Ears, nose, mouth and throat: no ear pain, no tinnitis, no nose pain, no nasal congestion, no sinus pressure Cardiovascular: no chest pain, no palpitations, no edema Respiratory: no cough, no excessive sputum, no hemoptysis Gastrointestinal: abdominal pain, no BRBPR, no melena, no loss of appetite, no early satiety Genitourinary Male: no hematuria, no flank pain, no discharge, no urinary frequency, no urinary hesitancy, no nocturia Rectal: no pain, no incontinence, no bleeding Musculoskeletal: no neck stiffness, no neck pain, no arm numbness/tingling, no shooting leg pain Integumentary: no rash, no pruritis, no redness, no sores Neurological: no paralysis, no parathesias, no tingling, no syncope, no tremors Psychiatric: no anxiety, no sleep disturbances, no hypersomnia, no change in appetite, no suicidal ideation Endocrine: no cold intolerance, no heat intolerance, no polydipsia, no polyuria, no excessive sweating Hematologic/Lymphatic: no easy bruising, no easy bleeding Allergic/Immunologic: no urticaria Exam - Constitutional Vitals: Temp Pulse Resp BP Pulse Ox 97.8 F 81 18 140/75 98 03/12/22 08:24 03/12/22 09:04 03/12/22 09:04 03/12/22 09:04 03/12/22 09:04 General appearance: Present: mild distress - EENT Eyes: Present: PERRL ENT: hearing intact, clear oral mucosa - Neck Neck: Present: supple, normal ROM - Respiratory Respiratory effort: normal Respiratory: bilateral: CTA - Cardiovascular Heart Sounds: Present: S1 & S2. Absent: rub, click - Extremities Extremities: pulses symmetrical, No edema Peripheral Pulses: within normal limits - Abdominal General gastrointestinal: Present: soft, tender, mass. Absent: non-distended Localized gastrointestinal: tender: diffuse Male genitourinary: Present: normal - Integumentary Integumentary: Present: clear, warm, dry - Musculoskeletal Musculoskeletal: generalized weakness - Psychiatric Psychiatric: appropriate mood/affect, intact judgment & insight - Neurologic Neurologic: CNII-XII intact, moves all extremities Results - Labs CBC & Chem 7: 03/12/22 09:52 03/12/22 09:52 Labs: Abnormal lab results 03/12/22 03/12/22 03/12/22 Range/Units 09:52 09:52 09:52 RBC 2.61 L (3.65-5.03) M/mm3 Hgb 7.8 L (11.8-15.2) gm/dl Hct 23.7 L (35.5-45.6) % RDW 15.5 H (13.2-15.2) % Lymph % (Auto) 4.3 L (13.4-35.0) % Bee % (Auto) 10.7 H (0.0-7.3) % Lymph # (Auto) 0.4 L (1.2-5.4) K/mm3 Bee # (Auto) 1.0 H (0.0-0.8) K/mm3 Seg Neutrophils % 84.4 H (40.0-70.0) % Seg Neutrophils # 7.8 H (1.8-7.7) K/mm3 PT 20.9 H (12.2-14.9) Sec. INR 1.59 H (0.87-1.13) Potassium (3.6-5.0) mmol/L Chloride (98-107) mmol/L Carbon Dioxide (22-30) mmol/L BUN (9-20) mg/dL Creatinine (0.8-1.3) mg/dL Glucose (75-100) mg/dL Calcium (8.4-10.2) mg/dL ALT < 5 L (7-56) units/L Total Protein 4.6 L (6.3-8.2) g/dL Albumin 1.6 L (3.9-5) g/dL Lipase (13-60) units/L // Range/Units 09:52 RBC (3.65-5.03) M/mm3 Hgb (11.8-15.2) gm/dl Hct (35.5-45.6) % RDW (13.2-15.2) % Lymph % (Auto) (13.4-35.0) % Bee % (Auto) (0.0-7.3) % Lymph # (Auto) (1.2-5.4) K/mm3 Bee # (Auto) (0.0-0.8) K/mm3 Seg Neutrophils % (40.0-70.0) % Seg Neutrophils # (1.8-7.7) K/mm3 PT (12.2-14.9) Sec. INR (0.87-1.13) Potassium 3.2 L (3.6-5.0) mmol/L Chloride 110.7 H (98-107) mmol/L Carbon Dioxide 18 L (22-30) mmol/L BUN 44 H (9-20) mg/dL Creatinine 11.6 H (0.8-1.3) mg/dL Glucose 64 L (75-100) mg/dL Calcium 6.5 L (8.4-10.2) mg/dL ALT (7-56) units/L Total Protein (6.3-8.2) g/dL Albumin (3.9-5) g/dL Lipase 8 L (13-60) units/L Assessment and Plan - Patient Problems (1) Intra-abdominal abscess Current Visit: Yes Status: Acute Plan to address problem: CT scan abdomen pelvis, serial abdominal exam, IV antibiotic therapy, interventional radiology team consulted, surgery team consulted. Patient pending surgical intervention. Bowel rest, IV fluid resuscitation therapy, supportive care, pain control. (2) Abdominal wall cellulitis Current Visit: Yes Status: Acute Plan to address problem: Interventional radiology team consulted, surgery team consulted, CBC, IV antibiotic therapy, CT scan abdomen pelvis, supportive care. (3) End stage renal disease Current Visit: Yes Status: Acute Plan to address problem: Nephrology team consulted in ED, dialysis as per renal team, (4) SIRS (systemic inflammatory response syndrome) Current Visit: Yes Status: Acute Plan to address problem: CBC, CMP, chest x-ray, IV antibiotic therapy, supportive care. Repeat CBC in AM. (5) Malnutrition Current Visit: Yes Status: Acute Qualifiers: Malnutrition type: protein-calorie malnutrition Protein-calorie malnutrition severity: moderate Qualified Code(s): E44.0 - Moderate protein- calorie malnutrition Plan to address problem: Increase protein intake, dietary supplementation. (6) Crohn's disease Current Visit: Yes Status: Acute Qualifiers: Digestive disease complication type: with abscess Plan to address problem: CT scan of abdomen pelvis, supportive care, pain control, IV antibiotic therapy, surgery team consulted. (7) Nicotine dependence Current Visit: Yes Status: Acute Qualifiers: Nicotine product type: cigarettes Substance use status: in withdrawal Qualified Code(s): F17.213 - Nicotine dependence, cigarettes, with withdrawal Plan to address problem: Smoking cessation counseled, supportive care, behavior change counseling, +15 minutes. (8) GERD (gastroesophageal reflux disease) Current Visit: Yes Status: Acute Qualifiers: Esophagitis presence: without esophagitis Qualified Code(s): K21.9 - Gastro-esophageal reflux disease without esophagitis Plan to address problem: PPI therapy, supportive care. (9) Hypertension Current Visit: Yes Status: Acute Qualifiers: Hypertension type: primary hypertension Qualified Code(s): I10 - Essential (primary) hypertension Plan to address problem: Monitor blood pressure every shift, continue medical management. (10) Migraine Current Visit: Yes Status: Acute Qualifiers: Intractability: not intractable Plan to address problem: Pain control, no acute exacerbation at this time, supportive care, pain control. (11) DVT prophylaxis Current Visit: Yes Status: Acute Plan to address problem: SCD to bilateral lower extremities while in bed (12) Advance care planning Current Visit: Yes Status: Acute Plan to address problem: Disease education done, care plan discussed, diagnoses discussed, prognosis discussed, patient is full code. Patient knowledges understanding and agreement with care plan, +30 minutes. (13) Preventative health care Current Visit: Yes Status: Acute Plan to address problem: Patient counseled regarding outpatient follow-up with primary care physician for all age and risk factor appropriate screening test. +30 minutes.
[2022-03-12] MEDS ORDERED: ACETAMINOPHEN 325 MG TAB PO PRN (13:48)
[2022-03-12] MEDS ORDERED: ONDANSETRON 4 MG/2 ML INJ IV PRN (13:48)
[2022-03-12] MEDS ORDERED: ALBUTEROL 2.5 MG/3 ML NEBU IH PRN (13:48)
[2022-03-12] MEDS ORDERED: cloNIDine TTS 0.3 MG/24 HR PATCH TD SCH (14:06)
[2022-03-12] MEDS: CEFEPIME/NS 1 GM/100 ML 1 GM/100 ML BAG IV SCH (14:35)
[2022-03-12] MEDS: cloNIDine TTS 0.3 MG/24 HR PATCH TD SCH ×2 (14:42→14:43)
[2022-03-12] MEDS: metroNIDAZOLE/NS 500 MG/100 ML 500 MG/100 ML BAG IV SCH (15:11)
[2022-03-12] MEDS ORDERED: LIDOCAINE 2%/EPINEPHRINE 1:200,000 VIAL (20 ML) INFILTRATI ONE (16:01)
[2022-03-12] MEDS ORDERED: MIDAZOLAM 5 MG/5 ML INJ MDV IV ONE ×2 (16:05→17:20)
[2022-03-12] MEDS ORDERED: fentaNYL 100 MCG/2 ML INJ ONE (16:06)
[2022-03-12 16:17] LABS: Hepatitis B Surface Antigen Non-Reactive (Negative); Hepatitis C Virus Antibody Non-Reactive (NonReactive)
[2022-03-12] MEDS ORDERED: fentaNYL 100 MCG/2 ML INJ IV ONE (17:21)
--- NOTE | 2022-03-12 17:49 | Operative Report ---
Operative Report Operative Report: EXAM: 1. CT-guided placement of a 12 Hungarian APD drain in a lower abdominal fluid collection 2. CT-guided placement of a 10 Hungarian APD drain and a lower right lateral fluid collection DATE: 03/12/2022 AGRICULTURAL COMMODITIES GRADER: LAXMI CHISHOLM MD INDICATION: Abdominal fluid collections with gas and fluid within them compati ble with abscess in the setting of known enteric fistula from prior surgery MEDICATIONS: Please see nursing report for full details. DEVICES: 12 Hungarian APD drain; 10 Hungarian APD drain CONTRAST: None PROCEDURE: The risk, benefits, and alternatives were discussed with the patient and his daughter; written informed consent was obtained by the patient. The patient was brought to the CT gantry and still operator imaging was obtained. Digital Strategist Senior Manager imaging was obtained with a grid on the patient's abdomen. After the area was marked, timeout was performed and the abdomen was prepped and draped in a sterile fashion. Under CT guidance, and 18-gauge needle was used to access the lower abdominal fluid collection. Lidocaine and finder needle was used prior to 18-gauge needle placement. Once the 18-gauge needle was in position, 0.035 inch wire was coiled in the abdominal collection. Serial dilatation was performed and a 12 Hungarian APD drain was placed in the abdominal fluid collection. This was all performed under CT guidance. The drain was in appropriate position. 40 mL of purulent material was removed. This was sent for culture. Drain was secured with 2-0 silk x2 and UreSil drainage bag was connected. Under CT guidance, and 18-gauge needle was used to access the lower right lateral abdominal fluid collection. Lidocaine and finder needle was used prior to 18-gauge needle placement. Once the 18-gauge needle was in position, 0.035 inch wire was coiled in the abdominal collection. Serial dilatation was performed and a 10 Hungarian APD drain was placed in the abdominal fluid collection. This was all performed under CT guidance. The drain was in appropriate position. 10 mL of purulent material was removed. This was sent for culture. Drain was secured with 2-0 silk x2 and UreSil drainage bag was connected. At this time I will drains were dressed in an appropriate fashion. No immediate postprocedural complications. Patient was transferred back to the emergency room. FINDINGS: CT scans were performed confirming that the collections were amenable to CT- guided drainage and documenting the needle position in the collections and the wire coiled in the collections. Ultimately a final CT was obtained confirming the position of the drains. IMPRESSION: Successful placement of the CT-guided drains in the abdominal fluid collections.
--- NOTE | 2022-03-12 17:49 | Post Operative Note ---
Date of procedure: 03/12/22 Pre-op diagnosis: Abdominal fluid collections Post-op diagnosis: same Procedure: CT guided placement of a 12 Fr APD drain in the lower abdominal fluid collection CT guided placement of a 10 Fr APD drain in the lower lateral abdominal fluid collection Anesthesia: local (w/ conscious sedation) Surgeon: LAXMI CHISHOLM Estimated blood loss: minimal Specimen disposition: other (to micro for culture) Condition: stable Disposition: floor
[2022-03-12] MEDS ORDERED: ALBUMIN HUMAN 25% (25 GM/100 ML) INJ IV PRN (18:34)
[2022-03-12] MEDS ORDERED: SODIUM CHLORIDE 0.9% 100 ML IV PRN (18:34)
[2022-03-12] MEDS: SUCRALFATE 1 GM TAB PO SCH (18:54)
[2022-03-12] MEDS: SODIUM CHLORIDE 0.9% 1000 ML 1,000 ML IV SCH (20:40)
[2022-03-12] MEDS ORDERED: NON-FORMULARY EACH (Atorvastatin Tablet) PO SCH (22:00)
[2022-03-13] MEDS: CEFEPIME/NS 1 GM/100 ML 1 GM/100 ML BAG IV SCH ×2 (00:13→06:12)
[2022-03-13] MEDS: SUCRALFATE 1 GM TAB PO SCH ×6 (00:13→22:19)
[2022-03-13] MEDS: metroNIDAZOLE/NS 500 MG/100 ML 500 MG/100 ML BAG IV SCH ×5 (00:14→22:19)
[2022-03-13 06:10] LABS: Basophils % (Auto) 0.4 % (0.0-1.8); Eosinophils # (Auto) 0.3 K/mm3 (0.0-0.4); Eosinophils % (Auto) 3.4 % (0.0-4.3); Hematocrit 30.6 % (35.5-45.6); Hemoglobin 9.8 gm/dl (11.8-15.2); Lymphocytes # (Auto) 0.9 K/mm3 (1.2-5.4); Lymphocytes % (Auto) 10.5 % (13.4-35.0); Mean Corpuscular HGB Conc 32 % (32-34); Mean Corpuscular Volume 91 fl (84-94); Monocytes # (Auto) 0.7 K/mm3 (0.0-0.8); Monocytes % (Auto) 8.3 % (0.0-7.3); Platelet Count 258 K/mm3 (140-440); Red Blood Count 3.38 M/mm3 (3.65-5.03); Red Cell Distribution Width 15.3 % (13.2-15.2)
[2022-03-13 06:21] LABS: Calcium 9.6 mg/dL (8.4-10.2)
--- NOTE | 2022-03-13 09:18 | Consultation ---
History of Present Illness - Reason for Consult Consult date: 03/13/22 end stage renal disease - History of Present Illness This is a 61 year-old man with ESRD who presents for abdominal pain. Patient usually dialyzes / at [facility]. Last HD 03/08, missed 03/10 due to abdominal pain, went to [facility] for "second opinion" of abdominal findings. Denies any recent issues with HD, including dizziness, lightheadedness, cramping, chest pain on HD. Currently, patient denies any issues including dyspnea, edema, access issues, nausea, vomiting, headaches. Noted to have CT with intra-abdominal abscess, now s/p IR CT guided drainage. 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 denies: alcohol abuse, prescription drug abuse Family history: diabetes, hypertension Medications and Allergies Allergies Allergy/AdvReac Type Severity Reaction Status Date / Time No Known Allergies Allergy Verified 03/12/22 08:54 Home Medications Medication Instructions Recorded Confirmed Last Taken Type Calcium Acetate 667 mg PO DAILY 04/20/20 03/12/22 1 Day Ago History ~03/11/22 Dialyvite with Zinc Tablet 1 tab PO DAILY 04/20/20 03/12/22 1 Day Ago History ~03/11/22 AtorvaSTATin 40 mg PO HS 11/01/20 03/12/22 1 Day Ago History ~03/11/22 Pantoprazole Sodium 40 mg PO DAILY 12/19/21 03/12/22 1 Day Ago History ~03/11/22 Losartan [Cozaar] 100 mg PO QDAY 30 Days 12/20/21 03/12/22 03/11/22 Rx carvediloL 25 mg PO DAILY #60 12/20/21 03/12/22 1 Day Ago Rx ~03/11/22 Amlodipine Besylate [Norvasc] 10 mg PO DAILY 03/12/22 03/12/22 1 Day Ago History ~03/11/22 Loperamide [Imodium] 2 mg PO 4XD PRN 03/12/22 03/12/22 Unknown History Sucralfate [Carafate] 1 gm PO ACHS 03/12/22 03/12/22 Unknown History cloNIDine-TTS PATCH [Catapres-Tts 1 patch TD Q7D 03/12/22 03/12/22 Unknown History 0.3mg Patch] Active Meds: Active Medications Acetaminophen (Acetaminophen 325 Mg Tab) 650 mg PO Q4H PRN PRN Reason: Pain MILD(1-3)/Fever >100.5/HULL Albumin Human (Albumin Human 25% (25 Gm/100 Ml) Inj) 25 gm IV RYLAND PRN PRN Reason: Hypotension Albuterol (Albuterol 2.5 Mg/3 Ml Nebu) 2.5 mg IH Q4HRT PRN PRN Reason: Shortness Of Breath Amlodipine Besylate (Amlodipine 5 Mg Tab) 5 mg PO DAILY [facility] Atorvastatin Calcium (Atorvastatin 40 Mg Tab) 40 mg PO QHS [facility] Last Admin: 03/13/22 00:14 Dose: 40 mg Calcium Acetate (Calcium Acetate 667 Mg Cap) 667 mg PO QDAY THOMAS Carvedilol (Carvedilol 25 Mg Tab) 25 mg PO QDAY [facility] Clonidine HCl (Clonidine Tts 0.3 Mg/24 Hr Patch) 0.3 mg TD Mo [facility] Last Admin: 03/12/22 14:37 Dose: 0.3 mg Epoetin Maurice-epbx (Epoetin Maurice-Epbx 20,000 Unit/1 Ml Vial) 20,000 unit IV RYLAND PRN PRN Reason: hemodialysis Hydromorphone HCl (Hydromorphone 0.5 Mg/0.5 Ml Inj) 0.5 mg IV Q3H PRN PRN Reason: Pain , Severe (7-10) Sodium Chloride (Nacl 0.9% 1000 Ml) 1,000 mls @ 42 mls/hr IV DIRECT [facility] Last Admin: 03/12/22 20:40 Dose: 42 mls/hr Cefepime HCl (Cefepime/Ns 1 Gm/100 Ml) 1 gm in 100 mls @ 200 mls/hr IV Q8H [facility]; Protocol Last Admin: 03/13/22 06:12 Dose: 200 mls/hr Metronidazole (Flagyl 500 Mg/100 Ml) 500 mg in 100 mls @ 100 mls/hr IV Q8H [facility]; Protocol Last Admin: 03/13/22 06:13 Dose: 100 mls/hr Sodium Chloride (Nacl 0.9%) 100 mls @ 999 mls/hr IV RYLAND PRN PRN Reason: Hypotension Losartan Potassium (Losartan 50 Mg Tab) 100 mg PO QDAY [facility] Multivit/Ca Carb/B Cmplx/FA/Prenat (Folic Acid/Vit B Comp W-C 1 Mg (Renal Caps)) 1 cap PO QDAY [facility] Ondansetron HCl (Ondansetron 4 Mg/2 Ml Inj) 4 mg IV Q8H PRN PRN Reason: Nausea And Vomiting Oxycodone/Acetaminophen (Oxycodone /Acetaminophen 5-325mg Tab) 1 tab PO Q6H PRN PRN Reason: Pain, Moderate (4-6) Pantoprazole Sodium (Pantoprazole 40 Mg Tab) 40 mg PO DAILY [facility] Sodium Chloride (Sodium Chloride 0.9% 10 Ml Flush Syringe) 10 ml IV BID [facility] Last Admin: 03/13/22 00:15 Dose: 10 ml Sodium Chloride (Sodium Chloride 0.9% 10 Ml Flush Syringe) 10 ml IV PRN PRN PRN Reason: LINE FLUSH Sucralfate (Sucralfate 1 Gm Tab) 1 gm PO ACHS [facility] Last Admin: 03/13/22 00:13 Dose: 1 gm Review of Systems All systems: negative (abdominal pain as per HPI) Exam - Vital Signs Vital signs: Vital Signs Temp Pulse Resp BP Pulse Ox 97.8 F 88 18 158/76 96 03/12/22 08:24 03/12/22 08:24 03/12/22 08:24 03/12/22 08:24 03/12/22 08:24 - Physical Exam Narrative exam: Constitutional: no acute distress Head: NC/AT Neck: supple Lungs: clear to auscultation CV: RRR, no M/R/G Abdomen: drains noted Back: nontender Extremities: no edema, pulses WNL Skin: intact Neuro: no focal deficits, alert and oriented x4 Results - Lab Results 03/13/22 05:35 03/13/22 05:35 Most recent lab results Calcium 9.6 mg/dL (8.4-10.2) D 03/13/22 05:35 Assessment and Plan This is a 61 year old man who presents with abdominal pain # ESRD: HD today for azotemia, continue // or prn. 3K bath for now - daily labs - renally dose meds - avoid nephrotoxins - renal diet - verbal consent obtained for HD # Anemia: last hemoglobin 9.8, follow, TACHO prn with HD # HTN: UF as tolerated, minimal given drainage. BP stable # Secondary Hyperparathyroidism: will continue home binders as needed- note Phoslo, vitamin D analogs prn # Intra-abdominal abscess: surgery/IR following
[2022-03-13] MEDS ORDERED: NON-FORMULARY EACH (Calcium Acetate [Calcium Acetate] 667 MG Tablet) PO SCH (10:00)
[2022-03-13] MEDS ORDERED: CARVEDILOL PO SCH (10:00)
[2022-03-13] MEDS ORDERED: [UNRECOGNIZED DRUG - OTHER] PO SCH (10:00)
[2022-03-13] MEDS ORDERED: carvediloL 25 MG TAB PO SCH (10:00)
[2022-03-13] MEDS: amLODIPine 5 MG TAB PO SCH (10:15)
[2022-03-13] MEDS: LOSARTAN 50 MG TAB PO SCH (10:16)
[2022-03-13] MEDS: PANTOPRAZOLE 40 MG TAB PO SCH (10:16)
[2022-03-13] MEDS: CALCIUM ACETATE 667 MG CAP PO SCH (10:16)
[2022-03-13] MEDS: FOLIC ACID/VIT B COMP W-C 1 MG (RENAL CAPS) PO SCH (10:16)
--- NOTE | 2022-03-13 10:56 | Progress Note ---
Objective Vital Signs - 12hr 03/13/22 03/13/22 03/13/22 00:30 04:05 06:04 Temperature 97.4 F L 97.8 F Pulse Rate 64 71 Respiratory 20 20 Rate Blood Pressure Blood Pressure 140/81 131/76 [Right] O2 Sat by Pulse 97 97 97 Oximetry O2 Sat by Pulse Oximetry [ Bilateral Throughout] 03/13/22 03/13/22 03/13/22 07:16 08:56 10:05 Temperature Pulse Rate Respiratory 20 Rate Blood Pressure 153/73 Blood Pressure [Right] O2 Sat by Pulse 98 97 Oximetry O2 Sat by Pulse Oximetry [ Bilateral Throughout] 03/13/22 03/13/22 03/13/22 10:20 10:26 10:30 Temperature 97.8 F Pulse Rate 65 63 63 Respiratory 17 Rate Blood Pressure 138/79 160/87 154/89 Blood Pressure [Right] O2 Sat by Pulse Oximetry O2 Sat by Pulse 96 Oximetry [ Bilateral Throughout] 03/13/22 10:45 Temperature Pulse Rate 65 Respiratory Rate Blood Pressure 151/85 Blood Pressure [Right] O2 Sat by Pulse Oximetry O2 Sat by Pulse Oximetry [ Bilateral Throughout] - Labs 03/13/22 05:35 03/13/22 05:35 Diabetes panel 03/12/22 03/12/22 03/13/22 Range/Units 09:52 09:52 05:35 Sodium 136 L (137-145) mmol/L Potassium 4.8 D (3.6-5.0) mmol/L Chloride 97.7 L (98-107) mmol/L Carbon Dioxide 22 (22-30) mmol/L BUN 64 H (9-20) mg/dL Creatinine 11.6 H 16.3 H (0.8-1.3) mg/dL Glucose 72 L (75-100) mg/dL Calcium 9.6 D (8.4-10.2) mg/dL AST 8 (5-40) units/L ALT < 5 L (7-56) units/L Alkaline Phosphatase 88 (35-129) units/L Total Protein 4.6 L (6.3-8.2) g/dL Albumin 1.6 L (3.9-5) g/dL Calcium panel 03/12/22 03/13/22 Range/Units 09:52 05:35 Calcium 9.6 D (8.4-10.2) mg/dL Albumin 1.6 L (3.9-5) g/dL Pituitary panel 03/12/22 03/13/22 Range/Units 09:52 05:35 Sodium 136 L (137-145) mmol/L Potassium 4.8 D (3.6-5.0) mmol/L Chloride 97.7 L (98-107) mmol/L Carbon Dioxide 22 (22-30) mmol/L BUN 64 H (9-20) mg/dL Creatinine 11.6 H 16.3 H (0.8-1.3) mg/dL Glucose 72 L (75-100) mg/dL Calcium 9.6 D (8.4-10.2) mg/dL Adrenal panel 03/12/22 03/12/22 03/13/22 Range/Units 09:52 09:52 05:35 Sodium 136 L (137-145) mmol/L Potassium 4.8 D (3.6-5.0) mmol/L Chloride 97.7 L (98-107) mmol/L Carbon Dioxide 22 (22-30) mmol/L BUN 64 H (9-20) mg/dL Creatinine 11.6 H 16.3 H (0.8-1.3) mg/dL Glucose 72 L (75-100) mg/dL Calcium 9.6 D (8.4-10.2) mg/dL Total Bilirubin 0.20 (0.1-1.2) mg/dL AST 8 (5-40) units/L ALT < 5 L (7-56) units/L Alkaline Phosphatase 88 (35-129) units/L Total Protein 4.6 L (6.3-8.2) g/dL Albumin 1.6 L (3.9-5) g/dL
--- NOTE | 2022-03-13 10:58 | Consultation ---
History of Present Illness - Reason for Consult Consult date: 03/13/22 - History of Present Illness 61-year-old man past medical history ESRD on HD, Crohn's, GERD, hypertension, pulmonary embolism presented to hospital complaining of abdominal pain. He notes it began 6 days prior to admission and has been persistent since onset. He is found to have an intra-abdominal abscess and an outpatient CT scan, and is also known to have abdominal wall cellulitis. He is known to me from a previous admission from last year where he was admitted for COVID-19, gram-positive bacteremia as well as a complicated surgical history of the abdomen. During that timeframe he had repeat cultures with Staph epidermidis. He was taken for IR drainage of the abscess and had to drains placed in fluid collections. Afebrile since admission with a white count 8.3. No cultures currently available. Per the operative report cultures were sent from the abscess, await the results. He is currently on cefepime and vancomycin. Imaging personally reviewed: CT abdomen pelvis: Perienteric intra-abdominal abscess adjacent to this distal small bowel marked enteritis of the distal small bowel. Review of Systems: Bold if positive, otherwise negative General: fevers, chills, rigors HEENT: visual disturbance, diplopia, eye pain Respiratory: cough, sputum, hemoptysis, shortness of breath Cardiovascular: chest pain, syncope Gastrointestinal: nausea, vomiting, diarrhea, abdominal pain Genitourinary: dysuria, hematuria, flank pain Musculoskeletal: neck pain, back pain, joint pain, edema Neurologic: headaches, seizures Hematologic: easy bruising or bleeding Endocrine: night sweats, acute weight loss Skin: rash, jaundice, redness Psychiatric: suicidal, homicidal ideation Past History Past Medical History: ESRD, GERD, hypertension, migraines Past Surgical History: appendectomy, cholecystectomy, bowel surgery (multiple bowel surgeries with resections and anastamosis, 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 denies: alcohol abuse, prescription drug abuse Family history: diabetes, hypertension Medications and Allergies Allergies Allergy/AdvReac Type Severity Reaction Status Date / Time No Known Allergies Allergy Verified 03/12/22 08:54 Home Medications Medication Instructions Recorded Confirmed Last Taken Type Calcium Acetate 667 mg PO DAILY 04/20/20 03/12/22 1 Day Ago History ~03/11/22 Dialyvite with Zinc Tablet 1 tab PO DAILY 04/20/20 03/12/22 1 Day Ago History ~03/11/22 AtorvaSTATin 40 mg PO HS 11/01/20 03/12/22 1 Day Ago History ~03/11/22 Pantoprazole Sodium 40 mg PO DAILY 12/19/21 03/12/22 1 Day Ago History ~03/11/22 Losartan [Cozaar] 100 mg PO QDAY 30 Days 12/20/21 03/12/22 03/11/22 Rx carvediloL 25 mg PO DAILY #60 12/20/21 03/12/22 1 Day Ago Rx ~03/11/22 Amlodipine Besylate [Norvasc] 10 mg PO DAILY 03/12/22 03/12/22 1 Day Ago History ~03/11/22 Loperamide [Imodium] 2 mg PO 4XD PRN 03/12/22 03/12/22 Unknown History Sucralfate [Carafate] 1 gm PO ACHS 03/12/22 03/12/22 Unknown History cloNIDine-TTS PATCH [Catapres-Tts 1 patch TD Q7D 03/12/22 03/12/22 Unknown History 0.3mg Patch] Active Meds: Active Medications Acetaminophen (Acetaminophen 325 Mg Tab) 650 mg PO Q4H PRN PRN Reason: Pain MILD(1-3)/Fever >100.5/HULL Albumin Human (Albumin Human 25% (25 Gm/100 Ml) Inj) 25 gm IV RYLAND PRN PRN Reason: Hypotension Albuterol (Albuterol 2.5 Mg/3 Ml Nebu) 2.5 mg IH Q4HRT PRN PRN Reason: Shortness Of Breath Amlodipine Besylate (Amlodipine 5 Mg Tab) 5 mg PO DAILY [facility] Last Admin: 03/13/22 10:15 Dose: Not Given Atorvastatin Calcium (Atorvastatin 40 Mg Tab) 40 mg PO QHS [facility] Last Admin: 03/13/22 00:14 Dose: 40 mg Calcium Acetate (Calcium Acetate 667 Mg Cap) 667 mg PO QDAY [facility] Last Admin: 03/13/22 10:16 Dose: Not Given Carvedilol (Carvedilol 25 Mg Tab) 25 mg PO QDAY [facility] Last Admin: 03/13/22 10:15 Dose: Not Given Clonidine HCl (Clonidine Tts 0.3 Mg/24 Hr Patch) 0.3 mg TD Mo [facility] Last Admin: 03/12/22 14:37 Dose: 0.3 mg Epoetin Maurice-epbx (Epoetin Maurice-Epbx 20,000 Unit/1 Ml Vial) 20,000 unit IV RYLAND PRN PRN Reason: hemodialysis Hydromorphone HCl (Hydromorphone 0.5 Mg/0.5 Ml Inj) 0.5 mg IV Q3H PRN PRN Reason: Pain , Severe (7-10) Sodium Chloride (Nacl 0.9% 1000 Ml) 1,000 mls @ 42 mls/hr IV DIRECT [facility] Last Admin: 03/12/22 20:40 Dose: 42 mls/hr Metronidazole (Flagyl 500 Mg/100 Ml) 500 mg in 100 mls @ 100 mls/hr IV Q8H [facility]; Protocol Last Admin: 03/13/22 06:13 Dose: 100 mls/hr Sodium Chloride (Nacl 0.9%) 100 mls @ 999 mls/hr IV RYLAND PRN PRN Reason: Hypotension Cefepime HCl (Cefepime/Ns 1 Gm/100 Ml) 1 gm in 100 mls @ 200 mls/hr IV QPM [facility]; Protocol Losartan Potassium (Losartan 50 Mg Tab) 100 mg PO QDAY [facility] Last Admin: 03/13/22 10:16 Dose: Not Given Multivit/Ca Carb/B Cmplx/FA/Prenat (Folic Acid/Vit B Comp W-C 1 Mg (Renal Caps)) 1 cap PO QDAY [facility] Last Admin: 03/13/22 10:16 Dose: Not Given Ondansetron HCl (Ondansetron 4 Mg/2 Ml Inj) 4 mg IV Q8H PRN PRN Reason: Nausea And Vomiting Oxycodone/Acetaminophen (Oxycodone /Acetaminophen 5-325mg Tab) 1 tab PO Q6H PRN PRN Reason: Pain, Moderate (4-6) Pantoprazole Sodium (Pantoprazole 40 Mg Tab) 40 mg PO DAILY [facility] Last Admin: 03/13/22 10:16 Dose: Not Given Sodium Chloride (Sodium Chloride 0.9% 10 Ml Flush Syringe) 10 ml IV BID [facility] Last Admin: 03/13/22 10:17 Dose: Not Given Sodium Chloride (Sodium Chloride 0.9% 10 Ml Flush Syringe) 10 ml IV PRN PRN PRN Reason: LINE FLUSH Sucralfate (Sucralfate 1 Gm Tab) 1 gm PO ACHS [facility] Last Admin: 03/13/22 10:15 Dose: Not Given Physical Examination - Physical Exam Narrative exam: Physical Exam: Constitutional: Alert, cooperative. No acute distress Head, Ears, Nose: Normocephalic, atraumatic. External ears, nose normal Eyes: Conjunctivae/corneas clear. No icterus. No ptosis. Neck: Supple, no meningeal signs Oral: dentition fair, no thrush Cardiovascular: S1, S2 normal. Respiratory: Good air entry, clear to auscultation bilaterally GI: Soft, non-tender; drains in place Musculoskeletal: No pedal edema, no cyanosis. Skin: No rash or abscess Hem/Lymphatic: No palpable cervical or supraclavicular nodes. No lymphangitis Psych: Mood ok. Affect normal Neurological: Awake, alert, oriented. No gross abnormality - Constitutional Vitals: Vital Signs Temp Pulse Resp BP Pulse Ox 97.8 F 65 17 151/85 96 03/13/22 10:20 03/13/22 10:45 03/13/22 10:20 03/13/22 10:45 03/13/22 10:20 Temperature -Last 24 Hours Temperature 97.8 F Temperature 97.8 F Temperature 97.4 F Results - Labs CBC & Chem 7: 03/13/22 05:35 03/13/22 05:35 Labs: Abnormal lab results 03/12/22 03/12/22 03/13/22 Range/Units 09:52 09:52 05:35 RBC 3.38 L (3.65-5.03) M/mm3 Hgb 9.8 L (11.8-15.2) gm/dl Hct 30.6 L D (35.5-45.6) % RDW 15.3 H (13.2-15.2) % Lymph % (Auto) 10.5 L (13.4-35.0) % [place] % (Auto) 8.3 H (0.0-7.3) % Lymph # (Auto) 0.9 L (1.2-5.4) K/mm3 Seg Neutrophils % 77.4 H (40.0-70.0) % Sodium (137-145) mmol/L Chloride (98-107) mmol/L BUN (9-20) mg/dL Creatinine 11.6 H (0.8-1.3) mg/dL Glucose (75-100) mg/dL ALT < 5 L (7-56) units/L Total Protein 4.6 L (6.3-8.2) g/dL Albumin 1.6 L (3.9-5) g/dL 03/13/22 Range/Units 05:35 RBC (3.65-5.03) M/mm3 Hgb (11.8-15.2) gm/dl Hct (35.5-45.6) % RDW (13.2-15.2) % Lymph % (Auto) (13.4-35.0) % [place] % (Auto) (0.0-7.3) % Lymph # (Auto) (1.2-5.4) K/mm3 Seg Neutrophils % (40.0-70.0) % Sodium 136 L (137-145) mmol/L Chloride 97.7 L (98-107) mmol/L BUN 64 H (9-20) mg/dL Creatinine 16.3 H (0.8-1.3) mg/dL Glucose 72 L (75-100) mg/dL ALT (7-56) units/L Total Protein (6.3-8.2) g/dL Albumin (3.9-5) g/dL Assessment and Plan Cultures: None so far A/P: 61-year-old man past medical history ESRD on HD, Crohn's, GERD, hypertension, pulmonary embolism #Intra-abdominal abscess: Status post IR drainage of the abscesses with drains in place. Awaiting culture results. 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 #Abdominal wall cellulitis: Associated with his abscess. #Crohn's #ESRD on HD: Renally dose medications Recs: -Agree with vancomycin and cefepime for now. Renally dose medications -Follow-up drainage cultures from his abscess -Hopefully able to discharge with antibiotics with HD Thank you for the consult, we will continue to follow. MD Steph [facility] O: [phone] F: [phone]
--- NOTE | 2022-03-13 13:39 | Progress Note ---
Assessment and Plan Assessment and plan: 61 YO Male with ESRD on HD(T,R,Sa) last dialyzed on , GERD, Crohn's Disease, Nicotine Dependence, HTN, Systolic CHF(EF 35%), COVID-19 2020, migraine HULL, PE not on therapeutic anticoagulation presents to ED for evaluation. Patient reports "my stomach hurts". Patient states that he had experienced abdominal pain over the past 6 days and persistent symptoms over the same timeframe. Patient states that pain is 8/10, constant, diffuse, without exacerbating or alleviating factors. Patient was seen and evaluated in his surgeon's office and underwent CT scan and was found to have findings consistent with intra-abdominal abscess. Patient was seen and evaluated at an outside hospital and instructed to seek further care. Patient subsequently seen and evaluated [facility] for the aforementioned symptoms. Patient then elected to seek second opinion at an outside hospital. EMS was subsequently notified and upon arrival the patient was found to be in distress and subsequently transported to [facility] for further care and evaluation of the aforementioned symptoms. The patient was seen and reevaluated in the emergency department. All lab and imaging studies reviewed. Patient underwent CT scan of the abdomen pelvis and was found to have intra-abdominal abscess complicated by abdominal wall cellulitis and abscess, systemic plantar response syndrome, end-stage renal disease in need of dialysis. Surgery team consulted in ED. Nephrology team consulted in ED. Patient denies fever, chills, chest pain, palpitation or productive cough, skin rash and recent contact, known exposure to COVID-19. Prior admission on 12/19/2021 reviewed. All medication listed at time of admission has been reconciled. Advanced care planning conducted in ED. 03/13: Patient now has 2 ADP drain placed under CT guidance as noted ;. CT- guided placement of a 12 Frisian APD drain in a lower abdominal fluid collection, CT-guided placement of a 10 Frisian APD drain and a lower right lateral fluid collection minimal drainage noted. We will continue on antibiotics. Will obtain ID consultation to assist with streamlining antibiotic management. He remains afebrile. Mildly hypoglycemic we will resume diet. He is currently on cefepime and vancomycin. And will follow cultures. Plan of care discussed with the patient in detail Imaging personally reviewed: CT abdomen pelvis: Perienteric intra-abdominal abscess adjacent to this distal small bowel marked enteritis of the distal small bowel. (1) Intra-abdominal abscess Current Visit: Yes Status: Acute Plan to address problem: CT scan abdomen pelvis, serial abdominal exam, IV antibiotic therapy, interventional radiology team consulted, surgery team consulted. Patient pending surgical intervention. Bowel rest, IV fluid resuscitation therapy, supportive care, pain control. (2) Abdominal wall cellulitis Current Visit: Yes Status: Acute Plan to address problem: Interventional radiology team consulted, surgery team consulted, CBC, IV antibiotic therapy, CT scan abdomen pelvis, supportive care. (3) End stage renal disease Current Visit: Yes Status: Acute Plan to address problem: Nephrology team consulted in ED, dialysis as per renal team, (4) SIRS (systemic inflammatory response syndrome) Current Visit: Yes Status: Acute Plan to address problem: CBC, CMP, chest x-ray, IV antibiotic therapy, supportive care. Repeat CBC in AM. (5) Malnutrition Current Visit: Yes Status: Acute Qualifiers: Malnutrition type: protein-calorie malnutrition Protein-calorie malnutrition severity: moderate Qualified Code(s): E44.0 - Moderate protein- calorie malnutrition Plan to address problem: Increase protein intake, dietary supplementation. (6) Crohn's disease Current Visit: Yes Status: Acute Qualifiers: Digestive disease complication type: with abscess Plan to address problem: CT scan of abdomen pelvis, supportive care, pain control, IV antibiotic therapy, surgery team consulted. (7) Nicotine dependence Current Visit: Yes Status: Acute Qualifiers: Nicotine product type: cigarettes Substance use status: in withdrawal Qualified Code(s): F17.213 - Nicotine dependence, cigarettes, with withdrawal Plan to address problem: Smoking cessation counseled, supportive care, behavior change counseling, +15 minutes. (8) GERD (gastroesophageal reflux disease) Current Visit: Yes Status: Acute Qualifiers: Esophagitis presence: without esophagitis Qualified Code(s): K21.9 - Gastro-esophageal reflux disease without esophagitis Plan to address problem: PPI therapy, supportive care. (9) Hypertension Current Visit: Yes Status: Acute Qualifiers: Hypertension type: primary hypertension Qualified Code(s): I10 - Essential (primary) hypertension Plan to address problem: Monitor blood pressure every shift, continue medical management. (10) Migraine Current Visit: Yes Status: Acute Qualifiers: Intractability: not intractable Plan to address problem: Pain control, no acute exacerbation at this time, supportive care, pain control. (11) DVT prophylaxis Current Visit: Yes Status: Acute Plan to address problem: SCD to bilateral lower extremities while in bed (12) Advance care planning Current Visit: Yes Status: Acute Plan to address problem: Disease education done, care plan discussed, diagnoses discussed, prognosis discussed, patient is full code. Patient knowledges understanding and agreement with care plan, +30 minutes. (13) Preventative health care Current Visit: Yes Status: Acute Plan to address problem: Patient counseled regarding outpatient follow-up with primary care physician for all age and risk factor appropriate screening test. +30 minutes. History Interval history: Patient seen and examined currently undergoing dialysis. He did have exertional fall drainage done Hospitalist Physical - Physical exam Narrative exam: VITAL SIGNS: Reviewed. GENERAL: The patient appears normally developed, Vital signs as documented. HEAD: No signs of head trauma. EYES: Pupils are equal. Extraocular motions intact. EARS: Hearing grossly intact. MOUTH: Oropharynx is normal. NECK: No adenopathy, no JVD. CHEST: Chest with clear breath sounds bilaterally. No wheezes, rales, or rhonchi. CARDIAC: Regular rate and rhythm. S1 and S2, without murmurs, gallops, or rubs. VASCULAR: No Edema. Peripheral pulses normal and equal in all extremities. ABDOMEN: 2 Abdominal drain, lower quadrant, Soft, non tender and non distended. No rebound or guarding, and no masses palpated. Bowel Sounds normal. MUSCULOSKELETAL: Good range of motion of all major joints. Extremities without clubbing, cyanosis or edema. NEUROLOGIC EXAM: Alert and oriented x 3 No focal sensory or strength deficits. Speech normal. Follows commands. PSYCHIATRIC: Mood normal. SKIN: well healed surgical scar, midline, detail exam as documented in skin assessment - Constitutional Vitals: Temp Pulse Resp BP Pulse Ox 97.8 F 71 17 146/92 96 03/13/22 10:20 03/13/22 13:15 03/13/22 10:20 03/13/22 13:15 03/13/22 10:20 General appearance: Present: mild distress Results - Labs CBC & Chem 7: 03/13/22 05:35 03/13/22 05:35 Labs: Laboratory Last Values WBC 8.3 K/mm3 (4.5-11.0) 03/13/22 05:35 RBC 3.38 M/mm3 (3.65-5.03) L 03/13/22 05:35 Hgb 9.8 gm/dl (11.8-15.2) L 03/13/22 05:35 Hct 30.6 % (35.5-45.6) L D 03/13/22 05:35 MCV 91 fl (84-94) 03/13/22 05:35 MCH 29 pg (28-32) 03/13/22 05:35 MCHC 32 % (32-34) 03/13/22 05:35 RDW 15.3 % (13.2-15.2) H 03/13/22 05:35 Plt Count 258 K/mm3 (140-440) 03/13/22 05:35 Lymph % (Auto) 10.5 % (13.4-35.0) L 03/13/22 05:35 [place] % (Auto) 8.3 % (0.0-7.3) H 03/13/22 05:35 Eos % (Auto) 3.4 % (0.0-4.3) 03/13/22 05:35 Baso % (Auto) 0.4 % (0.0-1.8) 03/13/22 05:35 Lymph # (Auto) 0.9 K/mm3 (1.2-5.4) L 03/13/22 05:35 [place] # (Auto) 0.7 K/mm3 (0.0-0.8) 03/13/22 05:35 Eos # (Auto) 0.3 K/mm3 (0.0-0.4) 03/13/22 05:35 Baso # (Auto) 0.0 K/mm3 (0.0-0.1) 03/13/22 05:35 Seg Neutrophils % 77.4 % (40.0-70.0) H 03/13/22 05:35 Seg Neutrophils # 6.4 K/mm3 (1.8-7.7) 03/13/22 05:35 PT 20.9 Sec. (12.2-14.9) H 03/12/22 09:52 INR 1.59 (0.87-1.13) H 03/12/22 09:52 Sodium 136 mmol/L (137-145) L 03/13/22 05:35 Potassium 4.8 mmol/L (3.6-5.0) D 03/13/22 05:35 Chloride 97.7 mmol/L (98-107) L 03/13/22 05:35 Carbon Dioxide 22 mmol/L (22-30) 03/13/22 05:35 Anion Gap 21 mmol/L 03/13/22 05:35 BUN 64 mg/dL (9-20) H 03/13/22 05:35 Creatinine 16.3 mg/dL (0.8-1.3) H 03/13/22 05:35 Estimated GFR 4 ml/min 03/13/22 05:35 BUN/Creatinine Ratio 4 % 03/13/22 05:35 Glucose 72 mg/dL (75-100) L 03/13/22 05:35 Calcium 9.6 mg/dL (8.4-10.2) D 03/13/22 05:35 Total Bilirubin 0.20 mg/dL (0.1-1.2) 03/12/22 09:52 Direct Bilirubin < 0.2 mg/dL (0-0.2) 03/12/22 09:52 Indirect Bilirubin 0.0 mg/dL 03/12/22 09:52 AST 8 units/L (5-40) 03/12/22 09:52 ALT < 5 units/L (7-56) L 03/12/22 09:52 Alkaline Phosphatase 88 units/L (35-129) 03/12/22 09:52 Total Protein 4.6 g/dL (6.3-8.2) L 03/12/22 09:52 Albumin 1.6 g/dL (3.9-5) L 03/12/22 09:52 Albumin/Globulin Ratio 0.5 % 03/12/22 09:52 Lipase 8 units/L (13-60) L 03/12/22 09:52 Hepatitis A IgM Ab Non-reactive (NonReactive) 03/12/22 14:53 Hep Bs Antigen Non-reactive (Negative) 03/12/22 14:53 Hep B Core IgM Ab Non-reactive (NonReactive) 03/12/22 14:53 Hepatitis C Antibody Non-reactive (NonReactive) 03/12/22 14:53 Jeffery/IV: Voiding Method Bedpan Active Medications - Current Medications Current Medications: Generic Name Dose Route Start Last Admin Trade Name Freq PRN Reason Stop Dose Admin Acetaminophen 650 mg 03/12/22 13:48 Acetaminophen 325 Mg Tab PO Q4H PRN Pain MILD(1-3)/Fever >100.5/HULL Albumin Human 25 gm 03/12/22 18:34 Albumin Human 25% (25 Gm/100 Ml) Inj IV RYLAND PRN Hypotension Albuterol 2.5 mg 03/12/22 13:48 Albuterol 2.5 Mg/3 Ml Nebu IH Q4HRT PRN Shortness Of Breath Amlodipine Besylate 5 mg 03/13/22 10:00 03/13/22 10:15 Amlodipine 5 Mg Tab PO Not Given DAILY [facility] Atorvastatin Calcium 40 mg 03/12/22 22:00 03/13/22 00:14 Atorvastatin 40 Mg Tab PO 40 mg QHS [facility] Administration Calcium Acetate 667 mg 03/13/22 10:00 03/13/22 10:16 Calcium Acetate 667 Mg Cap PO Not Given QDAY [facility] Carvedilol 25 mg 03/13/22 10:00 03/13/22 10:15 Carvedilol 25 Mg Tab PO Not Given QDAY [facility] Clonidine HCl 0.3 mg 03/12/22 14:06 03/12/22 14:37 Clonidine Tts 0.3 Mg/24 Hr Patch TD 0.3 mg Mo [facility] Administration Epoetin Maurice-epbx 20,000 unit 03/12/22 18:34 Epoetin Maurice-Epbx 20,000 Unit/1 Ml Vial IV RYLAND PRN hemodialysis Hydromorphone HCl 0.5 mg 03/12/22 13:48 Hydromorphone 0.5 Mg/0.5 Ml Inj IV Q3H PRN Pain , Severe (7-10) Sodium Chloride 1,000 mls @ 42 mls/hr 03/12/22 14:00 03/12/22 20:40 Nacl 0.9% 1000 Ml IV 42 mls/hr DIRECT [facility] Administration Metronidazole 500 mg in 100 mls @ 100 mls/hr 03/12/22 14:00 03/13/22 06:13 Flagyl 500 Mg/100 Ml IV 100 mls/hr Q8H [facility] Administration Protocol Sodium Chloride 100 mls @ 999 mls/hr 03/12/22 18:34 Nacl 0.9% IV RYLAND PRN Hypotension Cefepime HCl 1 gm in 100 mls @ 200 mls/hr 03/14/22 18:00 Cefepime/Ns 1 Gm/100 Ml IV QPM [facility] Protocol Losartan Potassium 100 mg 03/13/22 10:00 03/13/22 10:16 Losartan 50 Mg Tab PO Not Given QDAY [facility] Multivit/Ca Carb/B Cmplx/FA/Prenat 1 cap 03/13/22 10:00 03/13/22 10:16 Folic Acid/Vit B Comp W-C 1 Mg (Renal Caps) PO Not Given QDAY [facility] Ondansetron HCl 4 mg 03/12/22 13:48 Ondansetron 4 Mg/2 Ml Inj IV Q8H PRN Nausea And Vomiting Oxycodone/Acetaminophen 1 tab 03/12/22 13:48 Oxycodone /Acetaminophen 5-325mg Tab PO Q6H PRN Pain, Moderate (4-6) Pantoprazole Sodium 40 mg 03/13/22 10:00 03/13/22 10:16 Pantoprazole 40 Mg Tab PO Not Given DAILY [facility] Sodium Chloride 10 ml 03/12/22 22:00 03/13/22 10:17 Sodium Chloride 0.9% 10 Ml Flush Syringe IV Not Given BID [facility] Sodium Chloride 10 ml 03/12/22 13:48 Sodium Chloride 0.9% 10 Ml Flush Syringe IV PRN PRN LINE FLUSH Sucralfate 1 gm 03/12/22 16:30 03/13/22 11:52 Sucralfate 1 Gm Tab PO Not Given ACHS [facility]
[2022-03-13] MEDS ORDERED: ALBUTEROL 8.5 GM MDI INHALATION IH PRN (13:44)
[2022-03-13] MEDS ORDERED: hydrALAZINE 100 MG TAB PO SCH (14:00)
[2022-03-13] MEDS: hydrALAZINE 25 MG TAB PO SCH ×3 (14:34→22:19)
[2022-03-13] MEDS ORDERED: FOLIC ACID/VIT B COMP W-C 1 MG (RENAL CAPS) PO SCH (16:00)
--- NOTE | 2022-03-13 16:15 | Event Note ---
Date: 03/13/22 Went to visit patient earlier but he was in dialysis. Based on the chart and talking to the nurse the patient has been doing well since CT guided drainage. Afebrile and stable. will monitor drain out put and continue to follow.
[2022-03-13] MEDS: HYDROmorphone 0.5 MG/0.5 ML INJ IV PRN (20:21)
[2022-03-13] MEDS: GABAPENTIN 100 MG CAP PO PRN (20:36)
[2022-03-13] MEDS: AMITRIPTYLINE 25 MG TAB PO SCH ×2 (20:37→22:19)
[2022-03-13] MEDS: carvediloL 12.5 MG TAB PO SCH ×2 (20:38→22:19)
[2022-03-13] MEDS ORDERED: AMITRIPTYLINE 50 MG PO SCH (22:00)
[2022-03-14] MEDS: metroNIDAZOLE/NS 500 MG/100 ML 500 MG/100 ML BAG IV SCH ×3 (05:24→22:01)
[2022-03-14] MEDS: hydrALAZINE 25 MG TAB PO SCH ×3 (05:28→22:02)
[2022-03-14 05:30] LABS: Hematocrit 27.1 % (35.5-45.6); Hemoglobin 8.7 gm/dl (11.8-15.2); Mean Corpuscular HGB Conc 32 % (32-34); Mean Corpuscular Volume 91 fl (84-94); Platelet Count 219 K/mm3 (140-440); Red Blood Count 2.98 M/mm3 (3.65-5.03); Red Cell Distribution Width 15.1 % (13.2-15.2)
[2022-03-14 05:51] LABS: Albumin 2.3 g/dL (3.9-5); Blood Urea Nitrogen 32 mg/dL (9-20); Calcium 8.8 mg/dL (8.4-10.2); Hemolysis Index 4
[2022-03-14 05:53] LABS: Alanine Aminotransferase < 5 units/L (7-56); BUN/Creatinine Ratio 3
[2022-03-14] MEDS: SODIUM CHLORIDE 0.9% 1000 ML 1,000 ML IV SCH (08:28)
[2022-03-14] MEDS: FOLIC ACID/VIT B COMP W-C 1 MG (RENAL CAPS) PO SCH (09:38)
[2022-03-14] MEDS: PANTOPRAZOLE 40 MG TAB PO SCH (09:38)
[2022-03-14] MEDS: amLODIPine 5 MG TAB PO SCH (09:38)
[2022-03-14] MEDS: carvediloL 12.5 MG TAB PO SCH ×2 (09:38→22:01)
[2022-03-14] MEDS: LOSARTAN 50 MG TAB PO SCH (09:38)
[2022-03-14] MEDS: CALCIUM ACETATE 667 MG CAP PO SCH (09:38)
[2022-03-14] MEDS: SUCRALFATE 1 GM TAB PO SCH ×4 (09:39→22:01)
[2022-03-14] MEDS ORDERED: [UNRECOGNIZED DRUG - OTHER] PO SCH (10:00)
[2022-03-14] MEDS ORDERED: FOLIC PO SCH (10:00)
[2022-03-14] MEDS ORDERED: ZINC PO SCH (10:00)
[2022-03-14] MEDS ORDERED: B COMPLEX PO SCH (10:00)
[2022-03-14] MEDS ORDERED: BIOT PO SCH (10:00)
--- NOTE | 2022-03-14 10:10 | Progress Note ---
Assessment and Plan Assessment and plan: 61 YO Male with ESRD on HD(T,R,Sa) last dialyzed on , GERD, Crohn's Disease, Nicotine Dependence, HTN, Systolic CHF(EF 35%), COVID-19 2020, migraine HULL, PE not on therapeutic anticoagulation presents to ED for evaluation. Patient reports "my stomach hurts". Patient states that he had experienced abdominal pain over the past 6 days and persistent symptoms over the same timeframe. Patient states that pain is 8/10, constant, diffuse, without exacerbating or alleviating factors. Patient was seen and evaluated in his surgeon's office and underwent CT scan and was found to have findings consistent with intra-abdominal abscess. Patient was seen and evaluated at an outside hospital and instructed to seek further care. Patient subsequently seen and evaluated [facility] for the aforementioned symptoms. Patient then elected to seek second opinion at an outside hospital. EMS was subsequently notified and upon arrival the patient was found to be in distress and subsequently transported to [facility] for further care and evaluation of the aforementioned symptoms. The patient was seen and reevaluated in the emergency department. All lab and imaging studies reviewed. Patient underwent CT scan of the abdomen pelvis and was found to have intra-abdominal abscess complicated by abdominal wall cellulitis and abscess, systemic plantar response syndrome, end-stage renal disease in need of dialysis. Surgery team consulted in ED. Nephrology team consulted in ED. Patient denies fever, chills, chest pain, palpitation or productive cough, skin rash and recent contact, known exposure to COVID-19. Prior admission on 12/19/2021 reviewed. All medication listed at time of admission has been reconciled. Advanced care planning conducted in ED. 03/13: Patient now has 2 ADP drain placed under CT guidance as noted ;. CT- guided placement of a 12 [place] APD drain in a lower abdominal fluid collection, CT-guided placement of a 10 [place] APD drain and a lower right lateral fluid collection minimal drainage noted. We will continue on antibiotics. Will obtain ID consultation to assist with streamlining antibiotic management. He remains afebrile. Mildly hypoglycemic we will resume diet. He is currently on cefepime and vancomycin. And will follow cultures. Plan of care discussed with the patient in detail Imaging personally reviewed: CT abdomen pelvis: Perienteric intra-abdominal abscess adjacent to this distal small bowel marked enteritis of the distal small bowel. 03/14: Patient seen and examined, continues with drainage and antibiotics. 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 Status post CT-guided drainage with significant clinical improvement. Recommend continuing regular renal diet as tolerated. Should closely monitor drain output, if increases may need to decrease oral output and start parental feeding. Recommend continuing antibiotics and with discharge with the drains in place. Would keep for another 48 hours in the hospital for IV antibiotics and drain management" (1) Intra-abdominal abscess Current Visit: Yes Status: Acute Plan to address problem: CT scan abdomen pelvis, serial abdominal exam, IV antibiotic therapy, interventional radiology team consulted, surgery team consulted. Patient pending surgical intervention. Bowel rest, IV fluid resuscitation therapy, supportive care, pain control. (2) Abdominal wall cellulitis Current Visit: Yes Status: Acute Plan to address problem: Interventional radiology team consulted, surgery team consulted, CBC, IV antibiotic therapy, CT scan abdomen pelvis, supportive care. (3) End stage renal disease Current Visit: Yes Status: Acute Plan to address problem: Nephrology team consulted in ED, dialysis as per renal team, (4) SIRS (systemic inflammatory response syndrome) Current Visit: Yes Status: Acute Plan to address problem: CBC, CMP, chest x-ray, IV antibiotic therapy, supportive care. Repeat CBC in AM. (5) Malnutrition Current Visit: Yes Status: Acute Qualifiers: Malnutrition type: protein-calorie malnutrition Protein-calorie malnutrition severity: moderate Qualified Code(s): E44.0 - Moderate protein-calorie malnutrition Plan to address problem: Increase protein intake, dietary supplementation. (6) Crohn's disease Current Visit: Yes Status: Acute Qualifiers: Digestive disease complication type: with abscess Plan to address problem: CT scan of abdomen pelvis, supportive care, pain control, IV antibiotic therapy, surgery team consulted. (7) Nicotine dependence Current Visit: Yes Status: Acute Qualifiers: Nicotine product type: cigarettes Substance use status: in withdrawal Qualified Code(s): F17.213 - Nicotine dependence, cigarettes, with withdrawal Plan to address problem: Smoking cessation counseled, supportive care, behavior change counseling, +15 minutes. (8) GERD (gastroesophageal reflux disease) Current Visit: Yes Status: Acute Qualifiers: Esophagitis presence: without esophagitis Qualified Code(s): K21.9 - Gastro-esophageal reflux disease without esophagitis Plan to address problem: PPI therapy, supportive care. (9) Hypertension Current Visit: Yes Status: Acute Qualifiers: Hypertension type: primary hypertension Qualified Code(s): I10 - Essential (primary) hypertension Plan to address problem: Monitor blood pressure every shift, continue medical management. (10) Migraine Current Visit: Yes Status: Acute Qualifiers: Intractability: not intractable Plan to address problem: Pain control, no acute exacerbation at this time, supportive care, pain control. (11) DVT prophylaxis Current Visit: Yes Status: Acute Plan to address problem: SCD to bilateral lower extremities while in bed (12) Advance care planning Current Visit: Yes Status: Acute Plan to address problem: Disease education done, care plan discussed, diagnoses discussed, prognosis discussed, patient is full code. Patient knowledges understanding and agreement with care plan, +30 minutes. (13) Preventative health care Current Visit: Yes Status: Acute Plan to address problem: Patient counseled regarding outpatient follow-up with primary care physician for all age and risk factor appropriate screening test. +30 minutes. History Interval history: Patient seen and examined reports improvement Hospitalist Physical - Physical exam Narrative exam: VITAL SIGNS: Reviewed. GENERAL: The patient appears normally developed, Vital signs as documented. HEAD: No signs of head trauma. EYES: Pupils are equal. Extraocular motions intact. EARS: Hearing grossly intact. MOUTH: Oropharynx is normal. NECK: No adenopathy, no JVD. CHEST: Chest with clear breath sounds bilaterally. No wheezes, rales, or rhonchi. CARDIAC: Regular rate and rhythm. S1 and S2, without murmurs, gallops, or rubs. VASCULAR: No Edema. Peripheral pulses normal and equal in all extremities. ABDOMEN: 2 Abdominal drain, lower quadrant, Soft, non tender and non distended. No rebound or guarding, and no masses palpated. Bowel Sounds normal. MUSCULOSKELETAL: Good range of motion of all major joints. Extremities without clubbing, cyanosis or edema. NEUROLOGIC EXAM: Alert and oriented x 3 No focal sensory or strength deficits. Speech normal. Follows commands. PSYCHIATRIC: Mood normal. SKIN: well healed surgical scar, midline, detail exam as documented in skin assessment - Constitutional Vitals: Temp Pulse Resp BP Pulse Ox 98.4 F 66 18 126/74 97 03/14/22 05:28 03/14/22 05:28 03/14/22 05:28 03/14/22 05:03/14/22 08:54 General appearance: Present: mild distress Results - Labs CBC & Chem 7: 03/14/22 05:09 03/14/22 05:09 Labs: Laboratory Last Values WBC 5.0 K/mm3 (4.5-11.0) 03/14/22 05:09 RBC 2.98 M/mm3 (3.65-5.03) L 03/14/22 05:09 Hgb 8.7 gm/dl (11.8-15.2) L 03/14/22 05:09 Hct 27.1 % (35.5-45.6) L 03/14/22 05:09 MCV 91 fl (84-94) 03/14/22 05:09 MCH 29 pg (28-32) 03/14/22 05:09 MCHC 32 % (32-34) 03/14/22 05:09 RDW 15.1 % (13.2-15.2) 03/14/22 05:09 Plt Count 219 K/mm3 (140-440) 03/14/22 05:09 Lymph % (Auto) 10.5 % (13.4-35.0) L 03/13/22 05:35 Graham % (Auto) 8.3 % (0.0-7.3) H 03/13/22 05:35 Eos % (Auto) 3.4 % (0.0-4.3) 03/13/22 05:35 Baso % (Auto) 0.4 % (0.0-1.8) 03/13/22 05:35 Lymph # (Auto) 0.9 K/mm3 (1.2-5.4) L 03/13/22 05:35 Graham # (Auto) 0.7 K/mm3 (0.0-0.8) 03/13/22 05:35 Eos # (Auto) 0.3 K/mm3 (0.0-0.4) 03/13/22 05:35 Baso # (Auto) 0.0 K/mm3 (0.0-0.1) 03/13/22 05:35 Seg Neutrophils % 77.4 % (40.0-70.0) H 03/13/22 05:35 Seg Neutrophils # 6.4 K/mm3 (1.8-7.7) 03/13/22 05:35 PT 20.9 Sec. (12.2-14.9) H 03/12/22 09:52 INR 1.59 (0.87-1.13) H 03/12/22 09:52 Sodium 140 mmol/L (137-145) 03/14/22 05:09 Potassium 3.8 mmol/L (3.6-5.0) D 03/14/22 05:09 Chloride 103.5 mmol/L (98-107) 03/14/22 05:09 Carbon Dioxide 26 mmol/L (22-30) 03/14/22 05:09 Anion Gap 14 mmol/L 03/14/22 05:09 BUN 32 mg/dL (9-20) H 03/14/22 05:09 Creatinine 10.4 mg/dL (0.8-1.3) H 03/14/22 05:09 Estimated GFR 6 ml/min 03/14/22 05:09 BUN/Creatinine Ratio 3 % 03/14/22 05:09 Glucose 100 mg/dL (75-100) 03/14/22 05:09 Calcium 8.8 mg/dL (8.4-10.2) 03/14/22 05:09 Total Bilirubin 0.30 mg/dL (0.1-1.2) 03/14/22 05:09 Direct Bilirubin < 0.2 mg/dL (0-0.2) 03/12/22 09:52 Indirect Bilirubin 0.0 mg/dL 03/12/22 09:52 AST 10 units/L (5-40) 03/14/22 05:09 ALT < 5 units/L (7-56) L 03/14/22 05:09 Alkaline Phosphatase 102 units/L (35-129) 03/14/22 05:09 Total Protein 5.9 g/dL (6.3-8.2) L D 03/14/22 05:09 Albumin 2.3 g/dL (3.9-5) L 03/14/22 05:09 Albumin/Globulin Ratio 0.6 % 03/14/22 05:09 Lipase 8 units/L (13-60) L 03/12/22 09:52 Hepatitis A IgM Ab Non-reactive (NonReactive) 03/12/22 14:53 Hep Bs Antigen Non-reactive (Negative) 03/12/22 14:53 Hep B Core IgM Ab Non-reactive (NonReactive) 03/12/22 14:53 Hepatitis C Antibody Non-reactive (NonReactive) 03/12/22 14:53 Microbiology: Microbiology 03/12/22 Unknown Abdomen Surgical Culture - Preliminary Gram Negative Jaya Gram Negative Jaya#2 03/12/22 Unknown Abdomen Surgical Culture - Preliminary Gram Negative Jaya Gram Negative Jaya#2 Jeffery/IV: Voiding Method Bedpan Active Medications - Current Medications Current Medications: Generic Name Dose Route Start Last Admin Trade Name Freq PRN Reason Stop Dose Admin Acetaminophen 650 mg 03/12/22 13:48 Acetaminophen 325 Mg Tab PO Q4H PRN Pain MILD(1-3)/Fever >100.5/HULL Albumin Human 25 gm 03/12/22 18:34 Albumin Human 25% (25 Gm/100 Ml) Inj IV RYLAND PRN Hypotension Albuterol 2.5 mg 03/12/22 13:48 Albuterol 2.5 Mg/3 Ml Nebu IH Q4HRT PRN Shortness Of Breath Amitriptyline HCl 50 mg 03/13/22 22:00 03/13/22 22:19 Amitriptyline 25 Mg Tab PO Not Given QHS THOMAS Amlodipine Besylate 5 mg 03/13/22 10:00 03/14/22 09:38 Amlodipine 5 Mg Tab PO 5 mg DAILY THOMAS Administration Atorvastatin Calcium 40 mg 03/12/22 22:00 03/13/22 22:19 Atorvastatin 40 Mg Tab PO Not Given QHS THOMAS Calcium Acetate 667 mg 03/13/22 10:00 03/14/22 09:38 Calcium Acetate 667 Mg Cap PO 667 mg QDAY THOMAS Administration Carvedilol 12.5 mg 03/13/22 22:00 03/14/22 09:38 Carvedilol 12.5 Mg Tab PO 12.5 mg BID THOMAS Administration Clonidine HCl 0.3 mg 03/12/22 14:06 03/12/22 14:37 Clonidine Tts 0.3 Mg/24 Hr Patch TD 0.3 mg Mo THOMAS Administration Epoetin Maurice-epbx 20,000 unit 03/12/22 18:34 Epoetin Maurice-Epbx 20,000 Unit/1 Ml Vial IV RYLAND PRN hemodialysis Gabapentin 100 mg 03/13/22 14:30 03/13/22 20:36 Gabapentin 100 Mg Cap PO 100 mg TID PRN Administration burning pain Hydralazine HCl 50 mg 03/13/22 15:00 03/14/22 05:28 Hydralazine 25 Mg Tab PO 50 mg Q8HR THOMAS Administration Hydromorphone HCl 0.5 mg 03/12/22 13:48 03/13/22 20:21 Hydromorphone 0.5 Mg/0.5 Ml Inj IV 0.5 mg Q3H PRN Administration Pain , Severe (7-10) Sodium Chloride 1,000 mls @ 42 mls/hr 03/12/22 14:00 03/14/22 08:28 Nacl 0.9% 1000 Ml IV 42 mls/hr DIRECT THOMAS Administration Metronidazole 500 mg in 100 mls @ 100 mls/hr 03/12/22 14:00 03/14/22 05:24 Flagyl 500 Mg/100 Ml IV 100 mls/hr Q8H THOMAS Administration Protocol Sodium Chloride 100 mls @ 999 mls/hr 03/12/22 18:34 Nacl 0.9% IV RYLAND PRN Hypotension Cefepime HCl 1 gm in 100 mls @ 200 mls/hr 03/14/22 18:00 Cefepime/Ns 1 Gm/100 Ml IV QPM THOMAS Protocol Losartan Potassium 100 mg 03/13/22 10:00 03/14/22 09:38 Losartan 50 Mg Tab PO 100 mg QDAY THOMAS Administration Multivit/Ca Carb/B Cmplx/FA/Prenat 1 cap 03/13/22 10:00 03/14/22 09:38 Folic Acid/Vit B Comp W-C 1 Mg (Renal Caps) PO 1 cap QDAY THOMAS Administration Ondansetron HCl 4 mg 03/12/22 13:48 Ondansetron 4 Mg/2 Ml Inj IV Q8H PRN Nausea And Vomiting Oxycodone/Acetaminophen 1 tab 03/12/22 13:48 Oxycodone /Acetaminophen 5-325mg Tab PO Q6H PRN Pain, Moderate (4-6) Pantoprazole Sodium 40 mg 03/13/22 10:00 03/14/22 09:38 Pantoprazole 40 Mg Tab PO 40 mg DAILY THOMAS Administration Sodium Chloride 10 ml 03/12/22 22:00 03/14/22 09:39 Sodium Chloride 0.9% 10 Ml Flush Syringe IV 10 ml BID THOMAS Administration Sodium Chloride 10 ml 03/12/22 13:48 03/13/22 20:22 Sodium Chloride 0.9% 10 Ml Flush Syringe IV 10 ml PRN PRN Administration LINE FLUSH Sucralfate 1 gm 03/12/22 16:30 03/14/22 09:39 Sucralfate 1 Gm Tab PO 1 gm ACHS THOMAS Administration Nutrition/Malnutrition Assess - Dietary Evaluation Nutrition/Malnutrition Findings: Nutrition Notes Start: 03/13/22 16:49 Freq: Status: Active Protocol: Document 03/13/22 16:49 JEAN (Rec: 03/13/22 17:21 JEAN [id number]) Nutrition Notes Need for 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 Current Diet Renal Diet (since L 03/13). Labs/Tests 03/13: Na 136, Cl 97.7, BUN 64 , Crea 16.3, Glu 72. Pertinent Medications 03/13: Phoslo, Renal Multivitamins, others nutritionally unremarkable. Height 5 ft 7 in Weight 65 kg [place] Body Weight (kg) 67.27 BMI 22.4 Intake Prior to Admission Poor Weight change and time frame Pt staes having, unintentionally, loss more than 34 lb recently. Weight Status Appropriate Subjective/Other Information RD consult for difficulty chewing and risk of malnutrition assessments. No reports available on Pt's PO intake of meals at the time , will assess at F/U. Pt is on Room Air, O2 saturation @ 97%, according to Physical Assessment History notes. Pt complained of abdominal pain and poor appetite at admission, according to Physical Assessment History notes. Pt presents 2 small surgical abdominal wonds with drainages placed, according to Physical Assessment History notes. There are no concerns for difficulkty chewing mentioned in the chart, I will disregard this concern at this time. Pt shows no longer signs of concern for risk of malnutriton at the time after abdominal abscess drainage and medical tratment, according to Physical Assessment History and Progress notes. Percent of energy/protein needs met: Prescribed Renal Diet provides for energy/protein needs (2, 072 Kcal/77 g) during LOS. Burn Absent Trauma Absent GI Symptoms Other Food Allergy No Skin Integrity/Comment 2 small surgical abdominal wonds. Minimum of two criteria No Energy Intake (non-severe) <75% Estimated Energy Requirement >7 days Interpretation of Weight Loss (severe) >5% in 1 month Fluid Accumulation N/A Reduced Principal Bioinformatics Specialist Strength N/A (non-severe) Protein-Calorie Malnutrition N\\A #1 Nutrition Diagnosis No nutrition diagnosis at this time Comments: Pt shows no longer signs of concern for risk of malnutriton at the time after abdominal abscess drainage and medical tratment, according to Physical Assessment History and Progress notes. Is patient on ventilator? No Is Patient Ambulatory and/or Out of Bed Yes REE-([facility]-ambulatory/OOB) [ 1824.719 [id number]] Calculation Used for Recommendations [facility] Additional Notes Protein: 1.5-2 g/Kg ABW; 98- 130 g/day. Fluids: 1 ml/Kcal, or as per MD. Nutrition Intervention Change Diet Order: Continue Renal Diet. Follow-Up By: 03/20/22 Additional Comments Continue monitoring food tolerance, %PO intake of meals , and BM.
--- NOTE | 2022-03-14 11:42 | Progress Note ---
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 Status post CT-guided drainage with significant clinical improvement. Recommend continuing regular renal diet as tolerated. Should closely monitor drain output, if increases may need to decrease oral output and start parental feeding. Recommend continuing antibiotics and with discharge with the drains in place. Would keep for another 4 8 hours in the hospital for IV antibiotics and drain management. We will continue to follow. Subjective Date of service: 03/14/22 Narrative: No acute events overnight. Patient says this abdominal pain is significantly improved status post IR drainage compared to admission. Patient is tolerating a diet. Pain is controlled. Objective Vital Signs - 12hr 03/14/22 03/14/22 05:28 08:54 Temperature 98.4 F Pulse Rate 66 Respiratory 18 Rate Blood Pressure 126/74 O2 Sat by Pulse 97 97 Oximetry - General physical appearance well developed, no distress, no pain - Eyes PERRL - ENT no hearing loss - Respiratory normal expansion, normal respiratory effort - Abdomen soft, not tender, other (2 drains placed that are intact. Warm with serosanguineous drainage the other 1 with light brown drainage. 60 cc recorded last 24 hours between the drain.) - Labs 03/14/22 05:09 03/14/22 05:09 Diabetes panel 03/14/22 Range/Units 05:09 Sodium 140 (137-145) mmol/L Potassium 3.8 D (3.6-5.0) mmol/L Chloride 103.5 (98-107) mmol/L Carbon Dioxide 26 (22-30) mmol/L BUN 32 H (9-20) mg/dL Creatinine 10.4 H (0.8-1.3) mg/dL Glucose 100 (75-100) mg/dL Calcium 8.8 (8.4-10.2) mg/dL AST 10 (5-40) units/L ALT < 5 L (7-56) units/L Alkaline Phosphatase 102 (35-129) units/L Total Protein 5.9 L D (6.3-8.2) g/dL Albumin 2.3 L (3.9-5) g/dL Calcium panel 03/14/22 Range/Units 05:09 Calcium 8.8 (8.4-10.2) mg/dL Albumin 2.3 L (3.9-5) g/dL Pituitary panel 03/14/22 Range/Units 05:09 Sodium 140 (137-145) mmol/L Potassium 3.8 D (3.6-5.0) mmol/L Chloride 103.5 (98-107) mmol/L Carbon Dioxide 26 (22-30) mmol/L BUN 32 H (9-20) mg/dL Creatinine 10.4 H (0.8-1.3) mg/dL Glucose 100 (75-100) mg/dL Calcium 8.8 (8.4-10.2) mg/dL Adrenal panel 03/14/22 Range/Units 05:09 Sodium 140 (137-145) mmol/L Potassium 3.8 D (3.6-5.0) mmol/L Chloride 103.5 (98-107) mmol/L Carbon Dioxide 26 (22-30) mmol/L BUN 32 H (9-20) mg/dL Creatinine 10.4 H (0.8-1.3) mg/dL Glucose 100 (75-100) mg/dL Calcium 8.8 (8.4-10.2) mg/dL Total Bilirubin 0.30 (0.1-1.2) mg/dL AST 10 (5-40) units/L ALT < 5 L (7-56) units/L Alkaline Phosphatase 102 (35-129) units/L Total Protein 5.9 L D (6.3-8.2) g/dL Albumin 2.3 L (3.9-5) g/dL
[2022-03-14] MEDS: HYDROmorphone 0.5 MG/0.5 ML INJ IV PRN ×2 (11:48→22:01)
--- NOTE | 2022-03-14 13:33 | Progress Note ---
Assessment and Plan This is a 61 year old man who presents with abdominal pain # ESRD: continue HD // or prn. 3K bath for now. No need for additional HD today per lab, clinical assessment - daily labs - renally dose meds - avoid nephrotoxins - renal diet - verbal consent obtained for HD # Anemia: last hemoglobin 9.8->8.7, follow, TACHO prn with HD # HTN: UF as tolerated, minimal given drainage. BP stable # Secondary Hyperparathyroidism: will continue home binders as needed- note Phoslo, vitamin D analogs prn # Intra-abdominal abscess: surgery/IR following Subjective Date of service: 03/14/22 Interval history: No acute issues noted, resting in bed this AM Objective - Exam Narrative Exam: Constitutional: no acute distress Head: NC/AT Neck: supple Lungs: clear to auscultation CV: RRR, no M/R/G Abdomen: drains noted Back: nontender Extremities: no edema, pulses WNL Skin: intact Neuro: no focal deficits, alert and oriented x4 - Vital Signs Vital signs: Vital Signs - 12hr 03/14/22 03/14/22 05:28 08:54 Temperature 98.4 F Pulse Rate 66 Respiratory 18 Rate Blood Pressure 126/74 O2 Sat by Pulse 97 97 Oximetry - Lab 03/14/22 05:09 03/14/22 05:09 Most recent lab results Calcium 8.8 mg/dL (8.4-10.2) 03/14/22 05:09 Medications & Allergies - Medications Allergies/Adverse Reactions: Allergies No Known Allergies Allergy (Verified 03/12/22 08:54) Home Medications: Home Medications Medication Instructions Recorded Confirmed Last Taken Type Calcium Acetate 667 mg PO TIDAC 04/20/20 03/13/22 1 Day Ago History ~03/11/22 Pantoprazole Sodium 40 mg PO DAILY 12/19/21 03/12/22 1 Day Ago History ~03/11/22 Amlodipine Besylate [Norvasc] 10 mg PO DAILY 03/12/22 03/12/22 1 Day Ago History ~03/11/22 Loperamide [Imodium] 2 mg PO 4XD PRN 03/12/22 03/12/22 Unknown History Sucralfate [Carafate] 1 gm PO ACHS 03/12/22 03/12/22 Unknown History cloNIDine-TTS PATCH [Catapres-Tts 1 patch TD Q7D 03/12/22 03/12/22 Unknown History 0.3mg Patch] Albuterol Mdi (or & Nicu Only) 2 puff IH Q4H PRN 03/13/22 03/13/22 Unknown History [ProAir HFA Inhaler] Amitriptyline [Elavil] 50 mg PO QHS 03/13/22 03/13/22 Unknown History AtorvaSTATin [Lipitor] 40 mg PO QHS 03/13/22 03/13/22 2 Days Ago History ~03/11/22 B Complex 11/Folic/C/Biot/Zinc 1 tab PO QDAY 03/13/22 03/13/22 2 Days Ago History [Dialyvite with Zinc Tablet] ~03/11/22 Gabapentin [Neurontin] 100 mg PO TID PRN 03/13/22 03/13/22 Unknown History Losartan [Cozaar] 50 mg PO QDAY 03/13/22 03/13/22 2 Days Ago History ~03/11/22 Potassium Chloride [Klor-Con M20] 20 meq PO QDAY 03/13/22 03/13/22 Unknown History carvediloL [Coreg] 12.5 mg PO BID 03/13/22 03/13/22 2 Days Ago History ~03/11/22 hydrALAZINE [Apresoline TAB] 50 mg PO Q8H 03/13/22 03/13/22 Unknown History Active Medications: Generic Name Dose Route Start Last Admin Trade Name Freq PRN Reason Stop Dose Admin Acetaminophen 650 mg 03/12/22 13:48 Acetaminophen 325 Mg Tab PO Q4H PRN Pain MILD(1-3)/Fever >100.5/HULL Albumin Human 25 gm 03/12/22 18:34 Albumin Human 25% (25 Gm/100 Ml) Inj IV RYLAND PRN Hypotension Albuterol 2.5 mg 03/12/22 13:48 Albuterol 2.5 Mg/3 Ml Nebu IH Q4HRT PRN Shortness Of Breath Amitriptyline HCl 50 mg 03/13/22 22:00 03/13/22 22:19 Amitriptyline 25 Mg Tab PO Not Given QHS THOMAS Amlodipine Besylate 5 mg 03/13/22 10:00 03/14/22 09:38 Amlodipine 5 Mg Tab PO 5 mg DAILY THOMAS Administration Atorvastatin Calcium 40 mg 03/12/22 22:00 03/13/22 22:19 Atorvastatin 40 Mg Tab PO Not Given QHS THOMAS Calcium Acetate 667 mg 03/13/22 10:00 03/14/22 09:38 Calcium Acetate 667 Mg Cap PO 667 mg QDAY THOMAS Administration Carvedilol 12.5 mg 03/13/22 22:00 03/14/22 09:38 Carvedilol 12.5 Mg Tab PO 12.5 mg BID THOMAS Administration Clonidine HCl 0.3 mg 03/12/22 14:06 03/12/22 14:37 Clonidine Tts 0.3 Mg/24 Hr Patch TD 0.3 mg Mo THOMAS Administration Epoetin Maurice-epbx 20,000 unit 03/12/22 18:34 Epoetin Maurice-Epbx 20,000 Unit/1 Ml Vial IV RYLAND PRN hemodialysis Gabapentin 100 mg 03/13/22 14:30 03/13/22 20:36 Gabapentin 100 Mg Cap PO 100 mg TID PRN Administration burning pain Hydralazine HCl 50 mg 03/13/22 15:00 03/14/22 05:28 Hydralazine 25 Mg Tab PO 50 mg Q8HR THOMAS Administration Hydromorphone HCl 0.5 mg 03/12/22 13:48 03/14/22 11:48 Hydromorphone 0.5 Mg/0.5 Ml Inj IV 0.5 mg Q3H PRN Administration Pain , Severe (7-10) Sodium Chloride 1,000 mls @ 42 mls/hr 03/12/22 14:00 03/14/22 08:28 Nacl 0.9% 1000 Ml IV 42 mls/hr DIRECT THOMAS Administration Metronidazole 500 mg in 100 mls @ 100 mls/hr 03/12/22 14:00 03/14/22 05:24 Flagyl 500 Mg/100 Ml IV 100 mls/hr Q8H THOMAS Administration Protocol Sodium Chloride 100 mls @ 999 mls/hr 03/12/22 18:34 Nacl 0.9% IV RYLAND PRN Hypotension Cefepime HCl 1 gm in 100 mls @ 200 mls/hr 03/14/22 18:00 Cefepime/Ns 1 Gm/100 Ml IV QPM THOMAS Protocol Losartan Potassium 100 mg 03/13/22 10:00 03/14/22 09:38 Losartan 50 Mg Tab PO 100 mg QDAY THOMAS Administration Multivit/Ca Carb/B Cmplx/FA/Prenat 1 cap 03/13/22 10:00 03/14/22 09:38 Folic Acid/Vit B Comp W-C 1 Mg (Renal Caps) PO 1 cap QDAY THOMAS Administration Ondansetron HCl 4 mg 03/12/22 13:48 Ondansetron 4 Mg/2 Ml Inj IV Q8H PRN Nausea And Vomiting Oxycodone/Acetaminophen 1 tab 03/12/22 13:48 Oxycodone /Acetaminophen 5-325mg Tab PO Q6H PRN Pain, Moderate (4-6) Pantoprazole Sodium 40 mg 03/13/22 10:00 03/14/22 09:38 Pantoprazole 40 Mg Tab PO 40 mg DAILY THOMAS Administration Sodium Chloride 10 ml 03/12/22 22:00 03/14/22 09:39 Sodium Chloride 0.9% 10 Ml Flush Syringe IV 10 ml BID THOMAS Administration Sodium Chloride 10 ml 03/12/22 13:48 03/13/22 20:22 Sodium Chloride 0.9% 10 Ml Flush Syringe IV 10 ml PRN PRN Administration LINE FLUSH Sucralfate 1 gm 03/12/22 16:30 03/14/22 11:40 Sucralfate 1 Gm Tab PO 1 gm ACHS THOMAS Administration
--- NOTE | 2022-03-14 17:40 | Progress Note ---
Assessment and Plan Cultures: Abdominal abscess culture from drain: Gram-negative vargas, gram-negative vargas awaiting finalization A/P: 61-year-old man past medical history ESRD on HD, Crohn's, GERD, hypertension, pulmonary embolism #Intra-abdominal abscess: Status post IR drainage of the abscesses with drains in place. Awaiting culture results. 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 #Abdominal wall cellulitis: Associated with his abscess. #Crohn's #ESRD on HD: Renally dose medications Recs: -Agree with vancomycin and cefepime for now. Renally dose medications -Follow-up drainage cultures from his abscess -Hopefully able to discharge with antibiotics with HD depending on culture finalization's. Thank you for the consult, we will continue to follow. Andre Redding MD [facility] ([facility]) O: [phone] F: [phone] Subjective Date of service: 03/14/22 Interval history: Afebrile, normal white count. Cultures with 2x gram-negative vargas. Objective - Exam Narrative Exam: Physical Exam: Constitutional: Alert, cooperative. No acute distress Head, Ears, Nose: Normocephalic, atraumatic. External ears, nose normal Eyes: Conjunctivae/corneas clear. No icterus. No ptosis. Neck: Supple, no meningeal signs Oral: dentition fair, no thrush Cardiovascular: S1, S2 normal. Respiratory: Good air entry, clear to auscultation bilaterally GI: Soft, non-tender; drains in place Musculoskeletal: No pedal edema, no cyanosis. Skin: No rash or abscess Hem/Lymphatic: No palpable cervical or supraclavicular nodes. No lymphangitis Psych: Mood ok. Affect normal Neurological: Awake, alert, oriented. No gross abnormality - Constitutional Vitals: Vital Signs Temp Pulse Resp BP Pulse Ox 97.9 F 65 18 131/70 97 03/14/22 12:31 03/14/22 12:31 03/14/22 12:31 03/14/22 12:31 03/14/22 16:00 Temperature -Last 24 Hours Temperature 97.9 F Temperature 98.4 F Temperature 98.8 F - Labs CBC & Chem 7: 03/14/22 05:09 03/14/22 05:09 Labs: Abnormal lab results 03/14/22 03/14/22 Range/Units 05:09 05:09 RBC 2.98 L (3.65-5.03) M/mm3 Hgb 8.7 L (11.8-15.2) gm/dl Hct 27.1 L (35.5-45.6) % BUN 32 H (9-20) mg/dL Creatinine 10.4 H (0.8-1.3) mg/dL ALT < 5 L (7-56) units/L Total Protein 5.9 L D (6.3-8.2) g/dL Albumin 2.3 L (3.9-5) g/dL
[2022-03-14] MEDS: CEFEPIME/NS 1 GM/100 ML 1 GM/100 ML BAG IV SCH (18:11)
[2022-03-14] MEDS: AMITRIPTYLINE 25 MG TAB PO SCH (22:01)
[2022-03-14] MEDS: GABAPENTIN 100 MG CAP PO PRN (22:01)
[2022-03-15] MEDS: metroNIDAZOLE/NS 500 MG/100 ML 500 MG/100 ML BAG IV SCH ×3 (05:42→22:03)
[2022-03-15] MEDS: hydrALAZINE 25 MG TAB PO SCH ×3 (06:56→21:52)
--- NOTE | 2022-03-15 08:51 | Cat Scan Report ---
CT drain cyst/abscess performed by Dr. Leo. Please see operative report. Signer Name: Homer Lock DO Signed: 03/15/2022 8:47 AM Workstation Name: [id number]
[2022-03-15] MEDS: SUCRALFATE 1 GM TAB PO SCH ×4 (09:16→21:52)
--- NOTE | 2022-03-15 09:38 | Progress Note ---
Assessment and Plan This is a 61 year old man who presents with abdominal pain # ESRD: continue HD // or prn. 3K bath for now. HD due today - daily labs - renally dose meds - avoid nephrotoxins - renal diet - verbal consent obtained for HD # Nutrition: note albumin low, encourage po intake, protein diet # Anemia: last hemoglobin 9.8->8.7, follow, TACHO prn with HD # HTN: UF as tolerated, minimal given drainage. BP stable # Secondary Hyperparathyroidism: will continue home binders as needed- note Phoslo, vitamin D analogs prn # Intra-abdominal abscess: surgery/IR following Subjective Date of service: 03/15/22 Interval history: No acute issues noted, resting in bed this AM, also seen in HD unit later. Feeling well. Objective - Exam Narrative Exam: Constitutional: no acute distress Head: NC/AT Neck: supple Lungs: clear to auscultation CV: RRR, no M/R/G Abdomen: drains noted Back: nontender Extremities: no edema, pulses WNL Skin: intact Neuro: no focal deficits, alert and oriented x4 - Vital Signs Vital signs: Vital Signs - 12hr 03/14/22 21:55 Temperature 98.7 F Pulse Rate 72 Respiratory 18 Rate Blood Pressure 135/65 O2 Sat by Pulse 96 Oximetry - Lab 03/14/22 05:09 03/14/22 05:09 Most recent lab results Calcium 8.8 mg/dL (8.4-10.2) 03/14/22 05:09 Medications & Allergies - Medications Allergies/Adverse Reactions: Allergies No Known Allergies Allergy (Verified 03/12/22 08:54) Home Medications: Home Medications Medication Instructions Recorded Confirmed Last Taken Type Calcium Acetate 667 mg PO TIDAC 04/20/20 03/13/22 1 Day Ago History ~03/11/22 Pantoprazole Sodium 40 mg PO DAILY 12/19/21 03/12/22 1 Day Ago History ~03/11/22 Amlodipine Besylate [Norvasc] 10 mg PO DAILY 03/12/22 03/12/22 1 Day Ago History ~03/11/22 Loperamide [Imodium] 2 mg PO 4XD PRN 03/12/22 03/12/22 Unknown History Sucralfate [Carafate] 1 gm PO ACHS 03/12/22 03/12/22 Unknown History cloNIDine-TTS PATCH [Catapres-Tts 1 patch TD Q7D 03/12/22 03/12/22 Unknown History 0.3mg Patch] Albuterol Mdi (or & Nicu Only) 2 puff IH Q4H PRN 03/13/22 03/13/22 Unknown Hi story [ProAir HFA Inhaler] Amitriptyline [Elavil] 50 mg PO QHS 03/13/22 03/13/22 Unknown History AtorvaSTATin [Lipitor] 40 mg PO QHS 03/13/22 03/13/22 2 Days Ago History ~03/11/22 B Complex 11/Folic/C/Biot/Zinc 1 tab PO QDAY 03/13/22 03/13/22 2 Days Ago History [Dialyvite with Zinc Tablet] ~03/11/22 Gabapentin [Neurontin] 100 mg PO TID PRN 03/13/22 03/13/22 Unknown History Losartan [Cozaar] 50 mg PO QDAY 03/13/22 03/13/22 2 Days Ago History ~03/11/22 Potassium Chloride [Klor-Con M20] 20 meq PO QDAY 03/13/22 03/13/22 Unknown History carvediloL [Coreg] 12.5 mg PO BID 03/13/22 03/13/22 2 Days Ago History ~03/11/22 hydrALAZINE [Apresoline TAB] 50 mg PO Q8H 03/13/22 03/13/22 Unknown History Active Medications: Generic Name Dose Route Start Last Admin Trade Name Freq PRN Reason Stop Dose Admin Acetaminophen 650 mg 03/12/22 13:48 Acetaminophen 325 Mg Tab PO Q4H PRN Pain MILD(1-3)/Fever >100.5/HULL Albumin Human 25 gm 03/12/22 18:34 Albumin Human 25% (25 Gm/100 Ml) Inj IV RYLAND PRN Hypotension Albuterol 2.5 mg 03/12/22 13:48 Albuterol 2.5 Mg/3 Ml Nebu IH Q4HRT PRN Shortness Of Breath Amitriptyline HCl 50 mg 03/13/22 22:00 03/14/22 22:01 Amitriptyline 25 Mg Tab PO 50 mg QHS THOMAS Administration Amlodipine Besylate 5 mg 03/13/22 10:00 03/14/22 09:38 Amlodipine 5 Mg Tab PO 5 mg DAILY THOMAS Administration Atorvastatin Calcium 40 mg 03/12/22 22:00 03/14/22 22:01 Atorvastatin 40 Mg Tab PO 40 mg QHS THOMAS Administration Calcium Acetate 667 mg 03/13/22 10:00 03/14/22 09:38 Calcium Acetate 667 Mg Cap PO 667 mg QDAY THOMAS Administration Carvedilol 12.5 mg 03/13/22 22:00 03/14/22 22:01 Carvedilol 12.5 Mg Tab PO 12.5 mg BID THOMAS Administration Clonidine HCl 0.3 mg 03/12/22 14:06 03/12/22 14:37 Clonidine Tts 0.3 Mg/24 Hr Patch TD 0.3 mg Mo THOMAS Administration Epoetin Maurice-epbx 20,000 unit 03/12/22 18:34 Epoetin Maurice-Epbx 20,000 Unit/1 Ml Vial IV RYLAND PRN hemodialysis Gabapentin 100 mg 03/13/22 14:30 03/14/22 22:01 Gabapentin 100 Mg Cap PO 100 mg TID PRN Administration burning pain Hydralazine HCl 50 mg 03/13/22 15:00 03/15/22 06:56 Hydralazine 25 Mg Tab PO Not Given Q8HR THOMAS Hydromorphone HCl 0.5 mg 03/12/22 13:48 03/14/22 22:01 Hydromorphone 0.5 Mg/0.5 Ml Inj IV 0.5 mg Q3H PRN Administration Pain , Severe (7-10) Sodium Chloride 1,000 mls @ 42 mls/hr 03/12/22 14:00 03/14/22 08:28 Nacl 0.9% 1000 Ml IV 42 mls/hr DIRECT THOMAS Administration Metronidazole 500 mg in 100 mls @ 100 mls/hr 03/12/22 14:00 03/15/22 05:42 Flagyl 500 Mg/100 Ml IV 100 mls/hr Q8H THOMAS Administration Protocol Sodium Chloride 100 mls @ 999 mls/hr 03/12/22 18:34 Nacl 0.9% IV RYLAND PRN Hypotension Cefepime HCl 1 gm in 100 mls @ 200 mls/hr 03/14/22 18:00 03/14/22 18:11 Cefepime/Ns 1 Gm/100 Ml IV 200 mls/hr QPM THOMAS Administration Protocol Losartan Potassium 100 mg 03/13/22 10:00 03/14/22 09:38 Losartan 50 Mg Tab PO 100 mg QDAY THOMAS Administration Multivit/Ca Carb/B Cmplx/FA/Prenat 1 cap 03/13/22 10:00 03/14/22 09:38 Folic Acid/Vit B Comp W-C 1 Mg (Renal Caps) PO 1 cap QDAY THOMAS Administration Ondansetron HCl 4 mg 03/12/22 13:48 Ondansetron 4 Mg/2 Ml Inj IV Q8H PRN Nausea And Vomiting Oxycodone/Acetaminophen 1 tab 03/12/22 13:48 Oxycodone /Acetaminophen 5-325mg Tab PO Q6H PRN Pain, Moderate (4-6) Pantoprazole Sodium 40 mg 03/13/22 10:00 03/14/22 09:38 Pantoprazole 40 Mg Tab PO 40 mg DAILY THOMAS Administration Sodium Chloride 10 ml 03/12/22 22:00 03/14/22 22:02 Sodium Chloride 0.9% 10 Ml Flush Syringe IV 10 ml BID THOMAS Administration Sodium Chloride 10 ml 03/12/22 13:48 03/13/22 20:22 Sodium Chloride 0.9% 10 Ml Flush Syringe IV 10 ml PRN PRN Administration LINE FLUSH Sucralfate 1 gm 03/12/22 16:30 03/15/22 09:16 Sucralfate 1 Gm Tab PO Not Given ACHS [facility]
--- NOTE | 2022-03-15 10:19 | Progress Note ---
Assessment and Plan Cultures: Abdominal abscess culture from drain: Gram-negative vargas, gram-negative vargas awaiting finalization A/P: 61-year-old man past medical history ESRD on HD, Crohn's, GERD, hypertension, pulmonary embolism #Intra-abdominal abscess: Status post IR drainage of the abscesses with drains in place. Awaiting culture results. 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 #Abdominal wall cellulitis: Associated with his abscess. #Crohn's #ESRD on HD: Renally dose medications Recs: -Agree with vancomycin and cefepime for now. Renally dose medications -Follow-up drainage cultures from his abscess. Given his previous surgeries and hospitalizations he is high risk for antibiotic resistance. -Hopefully able to discharge with antibiotics with HD depending on culture finalization's. Thank you for the consult, we will continue to follow. Andre Redding MD [facility] [place] [facility] ([facility]) O: [phone] F: [phone] Subjective Date of service: 03/15/22 Interval history: Afebrile, normal white count. Still awaiting culture finalization from surgical cultures. Objective - Exam Narrative Exam: Physical Exam: Constitutional: Alert, cooperative. No acute distress Head, Ears, Nose: Normocephalic, atraumatic. External ears, nose normal Eyes: Conjunctivae/corneas clear. No icterus. No ptosis. Neck: Supple, no meningeal signs Oral: dentition fair, no thrush Cardiovascular: S1, S2 normal. Respiratory: Good air entry, clear to auscultation bilaterally GI: Soft, non-tender; drains in place Musculoskeletal: No pedal edema, no cyanosis. Skin: No rash or abscess Hem/Lymphatic: No palpable cervical or supraclavicular nodes. No lymphangitis Psych: Mood ok. Affect normal Neurological: Awake, alert, oriented. No gross abnormality - Constitutional Vitals: Vital Signs Temp Pulse Resp BP Pulse Ox 97.7 F 63 19 127/72 97 03/15/22 09:30 03/15/22 10:15 03/15/22 09:30 03/15/22 10:15 03/15/22 09:30 Temperature -Last 24 Hours Temperature 97.7 F Temperature 98.7 F Temperature 98.5 F Temperature 97.9 F - Labs CBC & Chem 7: 03/14/22 05:09 03/14/22 05:09
--- NOTE | 2022-03-15 10:56 | Progress Note ---
Assessment and Plan Assessment and plan: 61 YO Male with ESRD on HD(T,R,Sa) last dialyzed on , GERD, Crohn's Disease, Nicotine Dependence, HTN, Systolic CHF(EF 35%), COVID-19 2020, migraine HULL, PE not on therapeutic anticoagulation presents to ED for evaluation. Patient reports "my stomach hurts". Patient states that he had experienced abdominal pain over the past 6 days and persistent symptoms over the same timeframe. Patient states that pain is 8/10, constant, diffuse, without exacerbating or alleviating factors. Patient was seen and evaluated in his surgeon's office and underwent CT scan and was found to have findings consistent with intra-abdominal abscess. Patient was seen and evaluated at an outside hospital and instructed to seek further care. Patient subsequently seen and evaluated [facility] for the aforementioned symptoms. Patient then elected to seek second opinion at an outside hospital. EMS was subsequently notified and upon arrival the patient was found to be in distress and subsequently transported to [facility] for further care and evaluation of the aforementioned symptoms. The patient was seen and reevaluated in the emergency department. All lab and imaging studies reviewed. Patient underwent CT scan of the abdomen pelvis and was found to have intra-abdominal abscess complicated by abdominal wall cellulitis and abscess, systemic plantar response syndrome, end-stage renal disease in need of dialysis. Surgery team consulted in ED. Nephrology team consulted in ED. Patient denies fever, chills, chest pain, palpitation or productive cough, skin rash and recent contact, known exposure to COVID-19. Prior admission on 12/19/2021 reviewed. All medication listed at time of admission has been reconciled. Advanced care planning conducted in ED. 03/13: Patient now has 2 ADP drain placed under CT guidance as noted ;. CT- guided placement of a 12 Malay APD drain in a lower abdominal fluid collection, CT-guided placement of a 10 Malay APD drain and a lower right lateral fluid collection minimal drainage noted. We will continue on antibiotics. Will obtain ID consultation to assist with streamlining antibiotic management. He remains afebrile. Mildly hypoglycemic we will resume diet. He is currently on cefepime and vancomycin. And will follow cultures. Plan of care discussed with the patient in detail Imaging personally reviewed: CT abdomen pelvis: Perienteric intra-abdominal abscess adjacent to this distal small bowel marked enteritis of the distal small bowel. 03/14: Patient seen and examined, continues with drainage and antibiotics. 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 Status post CT-guided drainage with significant clinical improvement. Recommend continuing regular renal diet as tolerated. Should closely monitor drain output, if increases may need to decrease oral output and start parental feeding. Recommend continuing antibiotics and with discharge with the drains in place. Would keep for another 48 hours in the hospital for IV antibiotics and drain management" 03/15: Patient seen and examined continues to show improvement. Continues antibiotics for intra-abdominal abscess status post IR drainage which remains in place. Cultures are pending. Per ID we will continue with vancomycin and cefepime at this time with the understanding that given his previous surgeries or hospitalization he is high risk for antibiotics resistance. Nevertheless medication may be streamlined following cultures sensitivity and identification. No worsening pain noted at this time. Cultures so far showing gram-negative rods. Plan of care discussed with the patient in detail (1) Intra-abdominal abscess Current Visit: Yes Status: Acute Plan to address problem: CT scan abdomen pelvis, serial abdominal exam, IV antibiotic therapy, interventional radiology team consulted, surgery team consulted. Patient pending surgical intervention. Bowel rest, IV fluid resuscitation therapy, supportive care, pain control. (2) Abdominal wall cellulitis Current Visit: Yes Status: Acute Plan to address problem: Interventional radiology team consulted, surgery team consulted, CBC, IV antibiotic therapy, CT scan abdomen pelvis, supportive care. (3) End stage renal disease Current Visit: Yes Status: Acute Plan to address problem: Nephrology team consulted in ED, dialysis as per renal team, (4) SIRS (systemic inflammatory response syndrome) Current Visit: Yes Status: Acute Plan to address problem: CBC, CMP, chest x-ray, IV antibiotic therapy, supportive care. Repeat CBC in AM. (5) Malnutrition Current Visit: Yes Status: Acute Qualifiers: Malnutrition type: protein-calorie malnutrition Protein-calorie malnutrition severity: moderate Qualified Code(s): E44.0 - Moderate protein-calorie malnutrition Plan to address problem: Increase protein intake, dietary supplementation. (6) Crohn's disease Current Visit: Yes Status: Acute Qualifiers: Digestive disease complication type: with abscess Plan to address problem: CT scan of abdomen pelvis, supportive care, pain control, IV antibiotic therapy, surgery team consulted. (7) Nicotine dependence Current Visit: Yes Status: Acute Qualifiers: Nicotine product type: cigarettes Substance use status: in withdrawal Qualified Code(s): F17.213 - Nicotine dependence, cigarettes, with withdrawal Plan to address problem: Smoking cessation counseled, supportive care, behavior change counseling, +15 minutes. (8) GERD (gastroesophageal reflux disease) Current Visit: Yes Status: Acute Qualifiers: Esophagitis presence: without esophagitis Qualified Code(s): K21.9 - Gastro-esophageal reflux disease without esophagitis Plan to address problem: PPI therapy, supportive care. (9) Hypertension Current Visit: Yes Status: Acute Qualifiers: Hypertension type: primary hypertension Qualified Code(s): I10 - Essential (primary) hypertension Plan to address problem: Monitor blood pressure every shift, continue medical management. (10) Migraine Current Visit: Yes Status: Acute Qualifiers: Intractability: not intractable Plan to address problem: Pain control, no acute exacerbation at this time, supportive care, pain control. (11) DVT prophylaxis Current Visit: Yes Status: Acute Plan to address problem: SCD to bilateral lower extremities while in bed (12) Advance care planning Current Visit: Yes Status: Acute Plan to address problem: Disease education done, care plan discussed, diagnoses discussed, prognosis discussed, patient is full code. Patient knowledges understanding and agreement with care plan, +30 minutes. (13) Preventative health care Current Visit: Yes Status: Acute Plan to address problem: Patient counseled regarding outpatient follow-up with primary care physician for all age and risk factor appropriate screening test. +30 minutes. History Interval history: Patient seen and examined reports improvement, no new complaints reported. No fever reported. Hospitalist Physical - Physical exam Narrative exam: VITAL SIGNS: Reviewed. GENERAL: The patient appears normally developed, Vital signs as documented. HEAD: No signs of head trauma. EYES: Pupils are equal. Extraocular motions intact. EARS: Hearing grossly intact. MOUTH: Oropharynx is normal. NECK: No adenopathy, no JVD. CHEST: Chest with clear breath sounds bilaterally. No wheezes, rales, or rhonchi. CARDIAC: Regular rate and rhythm. S1 and S2, without murmurs, gallops, or rubs. VASCULAR: No Edema. Peripheral pulses normal and equal in all extremities. ABDOMEN: 2 Abdominal drain, lower quadrant, Soft, non tender and non distended. No rebound or guarding, and no masses palpated. Bowel Sounds normal. MUSCULOSKELETAL: Good range of motion of all major joints. Extremities without clubbing, cyanosis or edema. NEUROLOGIC EXAM: Alert and oriented x 3 No focal sensory or strength deficits. Speech normal. Follows commands. PSYCHIATRIC: Mood normal. SKIN: well healed surgical scar, midline, detail exam as documented in skin assessment - Constitutional Vitals: Temp Pulse Resp BP Pulse Ox 97.7 F 63 19 121/72 97 03/15/22 09:30 03/15/22 10:30 03/15/22 09:30 03/15/22 10:30 03/15/22 09:30 General appearance: Present: mild distress Results - Labs CBC & Chem 7: 03/14/22 05:09 03/14/22 05:09 Labs: Laboratory Last Values WBC 5.0 K/mm3 (4.5-11.0) 03/14/22 05:09 RBC 2.98 M/mm3 (3.65-5.03) L 03/14/22 05:09 Hgb 8.7 gm/dl (11.8-15.2) L 03/14/22 05:09 Hct 27.1 % (35.5-45.6) L 03/14/22 05:09 MCV 91 fl (84-94) 03/14/22 05:09 MCH 29 pg (28-32) 03/14/22 05:09 MCHC 32 % (32-34) 03/14/22 05:09 RDW 15.1 % (13.2-15.2) 03/14/22 05:09 Plt Count 219 K/mm3 (140-440) 03/14/22 05:09 Lymph % (Auto) 10.5 % (13.4-35.0) L 03/13/22 05:35 [place] % (Auto) 8.3 % (0.0-7.3) H 03/13/22 05:35 Eos % (Auto) 3.4 % (0.0-4.3) 03/13/22 05:35 Baso % (Auto) 0.4 % (0.0-1.8) 03/13/22 05:35 Lymph # (Auto) 0.9 K/mm3 (1.2-5.4) L 03/13/22 05:35 [place] # (Auto) 0.7 K/mm3 (0.0-0.8) 03/13/22 05:35 Eos # (Auto) 0.3 K/mm3 (0.0-0.4) 03/13/22 05:35 Baso # (Auto) 0.0 K/mm3 (0.0-0.1) 03/13/22 05:35 Seg Neutrophils % 77.4 % (40.0-70.0) H 03/13/22 05:35 Seg Neutrophils # 6.4 K/mm3 (1.8-7.7) 03/13/22 05:35 PT 20.9 Sec. (12.2-14.9) H 03/12/22 09:52 INR 1.59 (0.87-1.13) H 03/12/22 09:52 Sodium 140 mmol/L (137-145) 03/14/22 05:09 Potassium 3.8 mmol/L (3.6-5.0) D 03/14/22 05:09 Chloride 103.5 mmol/L (98-107) 03/14/22 05:09 Carbon Dioxide 26 mmol/L (22-30) 03/14/22 05:09 Anion Gap 14 mmol/L 03/14/22 05:09 BUN 32 mg/dL (9-20) H 03/14/22 05:09 Creatinine 10.4 mg/dL (0.8-1.3) H 03/14/22 05:09 Estimated GFR 6 ml/min 03/14/22 05:09 BUN/Creatinine Ratio 3 % 03/14/22 05:09 Glucose 100 mg/dL (75-100) 03/14/22 05:09 Calcium 8.8 mg/dL (8.4-10.2) 03/14/22 05:09 Total Bilirubin 0.30 mg/dL (0.1-1.2) 03/14/22 05:09 Direct Bilirubin < 0.2 mg/dL (0-0.2) 03/12/22 09:52 Indirect Bilirubin 0.0 mg/dL 03/12/22 09:52 AST 10 units/L (5-40) 03/14/22 05:09 ALT < 5 units/L (7-56) L 03/14/22 05:09 Alkaline Phosphatase 102 units/L (35-129) 03/14/22 05:09 Total Protein 5.9 g/dL (6.3-8.2) L D 03/14/22 05:09 Albumin 2.3 g/dL (3.9-5) L 03/14/22 05:09 Albumin/Globulin Ratio 0.6 % 03/14/22 05:09 Lipase 8 units/L (13-60) L 03/12/22 09:52 Hepatitis A IgM Ab Non-reactive (NonReactive) 03/12/22 14:53 Hep Bs Antigen Non-reactive (Negative) 03/12/22 14:53 Hep B Core IgM Ab Non-reactive (NonReactive) 03/12/22 14:53 Hepatitis C Antibody Non-reactive (NonReactive) 03/12/22 14:53 Jeffery/IV: Voiding Method Bedpan Active Medications - Current Medications Current Medications: Generic Name Dose Route Start Last Admin Trade Name Freq PRN Reason Stop Dose Admin Acetaminophen 650 mg 03/12/22 13:48 Acetaminophen 325 Mg Tab PO Q4H PRN Pain MILD(1-3)/Fever >100.5/HULL Albumin Human 25 gm 03/12/22 18:34 Albumin Human 25% (25 Gm/100 Ml) Inj IV RYLAND PRN Hypotension Albuterol 2.5 mg 03/12/22 13:48 Albuterol 2.5 Mg/3 Ml Nebu IH Q4HRT PRN Shortness Of Breath Amitriptyline HCl 50 mg 03/13/22 22:00 03/14/22 22:01 Amitriptyline 25 Mg Tab PO 50 mg QHS THOMAS Administration Amlodipine Besylate 5 mg 03/13/22 10:00 03/14/22 09:38 Amlodipine 5 Mg Tab PO 5 mg DAILY THOMAS Administration Atorvastatin Calcium 40 mg 03/12/22 22:00 03/14/22 22:01 Atorvastatin 40 Mg Tab PO 40 mg QHS THOMAS Administration Calcium Acetate 667 mg 03/13/22 10:00 03/14/22 09:38 Calcium Acetate 667 Mg Cap PO 667 mg QDAY THOMAS Administration Carvedilol 12.5 mg 03/13/22 22:00 03/14/22 22:01 Carvedilol 12.5 Mg Tab PO 12.5 mg BID THOMAS Administration Clonidine HCl 0.3 mg 03/12/22 14:06 03/12/22 14:37 Clonidine Tts 0.3 Mg/24 Hr Patch TD 0.3 mg Mo THOMAS Administration Epoetin Maurice-epbx 20,000 unit 03/12/22 18:34 Epoetin Maurice-Epbx 20,000 Unit/1 Ml Vial IV RYLAND PRN hemodialysis Gabapentin 100 mg 03/13/22 14:30 03/14/22 22:01 Gabapentin 100 Mg Cap PO 100 mg TID PRN Administration burning pain Hydralazine HCl 50 mg 03/13/22 15:00 03/15/22 06:56 Hydralazine 25 Mg Tab PO Not Given Q8HR THOMAS Hydromorphone HCl 0.5 mg 03/12/22 13:48 03/14/22 22:01 Hydromorphone 0.5 Mg/0.5 Ml Inj IV 0.5 mg Q3H PRN Administration Pain , Severe (7-10) Sodium Chloride 1,000 mls @ 42 mls/hr 03/12/22 14:00 03/14/22 08:28 Nacl 0.9% 1000 Ml IV 42 mls/hr DIRECT THOMAS Administration Metronidazole 500 mg in 100 mls @ 100 mls/hr 03/12/22 14:00 03/15/22 05:42 Flagyl 500 Mg/100 Ml IV 100 mls/hr Q8H THOMAS Administration Protocol Sodium Chloride 100 mls @ 999 mls/hr 03/12/22 18:34 Nacl 0.9% IV RYLAND PRN Hypotension Cefepime HCl 1 gm in 100 mls @ 200 mls/hr 03/14/22 18:00 03/14/22 18:11 Cefepime/Ns 1 Gm/100 Ml IV 200 mls/hr QPM THOMAS Administration Protocol Losartan Potassium 100 mg 03/13/22 10:00 03/14/22 09:38 Losartan 50 Mg Tab PO 100 mg QDAY THOMAS Administration Multivit/Ca Carb/B Cmplx/FA/Prenat 1 cap 03/13/22 10:00 03/14/22 09:38 Folic Acid/Vit B Comp W-C 1 Mg (Renal Caps) PO 1 cap QDAY THOMAS Administration Ondansetron HCl 4 mg 03/12/22 13:48 Ondansetron 4 Mg/2 Ml Inj IV Q8H PRN Nausea And Vomiting Oxycodone/Acetaminophen 1 tab 03/12/22 13:48 Oxycodone /Acetaminophen 5-325mg Tab PO Q6H PRN Pain, Moderate (4-6) Pantoprazole Sodium 40 mg 03/13/22 10:00 03/14/22 09:38 Pantoprazole 40 Mg Tab PO 40 mg DAILY THOMAS Administration Sodium Chloride 10 ml 03/12/22 22:00 03/14/22 22:02 Sodium Chloride 0.9% 10 Ml Flush Syringe IV 10 ml BID THOMAS Administration Sodium Chloride 10 ml 03/12/22 13:48 03/13/22 20:22 Sodium Chloride 0.9% 10 Ml Flush Syringe IV 10 ml PRN PRN Administration LINE FLUSH Sucralfate 1 gm 03/12/22 16:30 03/15/22 09:16 Sucralfate 1 Gm Tab PO Not Given ACHS THOMAS Nutrition/Malnutrition Assess - Dietary Evaluation Nutrition/Malnutrition Findings: Nutrition Notes Start: 03/13/22 16:49 Freq: Status: Active Protocol: Document 03/13/22 16:49 JEAN (Rec: 03/13/22 17:21 JEAN [id number]) Nutrition Notes Need for Assessment generated from: reject opener,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 Current Diet Renal Diet (since L 03/13). Labs/Tests 03/13: Na 136, Cl 97.7, BUN 64 , Crea 16.3, Glu 72. Pertinent Medications 03/13: Phoslo, Renal Multivitamins, others nutritionally unremarkable. Height 5 ft 7 in Weight 65 kg [place] Body Weight (kg) 67.27 BMI 22.4 Intake Prior to Admission Poor Weight change and time frame Pt staes having, unintentionally, loss more than 34 lb recently. Weight Status Appropriate Subjective/Other Information RD consult for difficulty chewing and risk of malnutrition assessments. No reports available on Pt's PO intake of meals at the time , will assess at F/U. Pt is on Room Air, O2 saturation @ 97%, according to Physical Assessment History notes. Pt complained of abdominal pain and poor appetite at admission, according to Physical Assessment History notes. Pt presents 2 small surgical abdominal wonds with drainages placed, according to Physical Assessment History notes. There are no concerns for difficulkty chewing mentioned in the chart, I will disregard this concern at this time. Pt shows no longer signs of concern for risk of malnutriton at the time after abdominal abscess drainage and medical tratment, according to Physical Assessment History and Progress notes. Percent of energy/protein needs met: Prescribed Renal Diet provides for energy/protein needs (2, 072 Kcal/77 g) during LOS. Burn Absent Trauma Absent GI Symptoms Other Food Allergy No Skin Integrity/Comment 2 small surgical abdominal wonds. Minimum of two criteria No Energy Intake (non-severe) <75% Estimated Energy Requirement >7 days Interpretation of Weight Loss (severe) >5% in 1 month Fluid Accumulation N/A Reduced Skid [employer] Man Strength N/A (non-severe) Protein-Calorie Malnutrition N\\A #1 Nutrition Diagnosis No nutrition diagnosis at this time Comments: Pt shows no longer signs of concern for risk of malnutriton at the time after abdominal abscess drainage and medical tratment, according to Physical Assessment History and Progress notes. Is patient on ventilator? No Is Patient Ambulatory and/or Out of Bed Yes REE-([facility]-ambulatory/OOB) [ 1824.719 [id number]] Calculation Used for Recommendations [facility] Additional Notes Protein: 1.5-2 g/Kg ABW; 98- 130 g/day. Fluids: 1 ml/Kcal, or as per MD. Nutrition Intervention Change Diet Order: Continue Renal Diet. Follow-Up By: 03/20/22 Additional Comments Continue monitoring food tolerance, %PO intake of meals , and BM.
[2022-03-15] MEDS: EPOETIN ALFA-EPBX 20,000 UNIT/1 ML VIAL IV PRN (12:32)
[2022-03-15] MEDS: amLODIPine 5 MG TAB PO SCH (13:28)
[2022-03-15] MEDS: FOLIC ACID/VIT B COMP W-C 1 MG (RENAL CAPS) PO SCH (13:29)
[2022-03-15] MEDS: carvediloL 12.5 MG TAB PO SCH ×2 (13:29→21:53)
[2022-03-15] MEDS: CALCIUM ACETATE 667 MG CAP PO SCH (13:29)
[2022-03-15] MEDS: PANTOPRAZOLE 40 MG TAB PO SCH (13:29)
[2022-03-15] MEDS: LOSARTAN 50 MG TAB PO SCH (13:33)
--- NOTE | 2022-03-15 14:06 | Event Note ---
Date: 03/15/22 Went to see patient. He was in dialysis. Review of his chart shows that he is remained afebrile and stable. He has had about 50 cc of drainage out of his abdominal and subcutaneous drain the right side. Appreciate infectious disease note and recommendations. Continue supportive care.
[2022-03-15] MEDS: CEFEPIME/NS 1 GM/100 ML 1 GM/100 ML BAG IV SCH (17:41)
[2022-03-15] MEDS: oxyCODONE /ACETAMINOPHEN 5-325MG TAB PO PRN (21:48)
[2022-03-15] MEDS: AMITRIPTYLINE 25 MG TAB PO SCH (21:53)
[2022-03-16] MEDS: metroNIDAZOLE/NS 500 MG/100 ML 500 MG/100 ML BAG IV SCH (06:04)
[2022-03-16] MEDS: hydrALAZINE 25 MG TAB PO SCH ×3 (06:05→21:48)
--- NOTE | 2022-03-16 08:51 | Progress Note ---
Assessment and Plan This is a 61 year old man who presents with abdominal pain # ESRD: continue HD // or prn. 3K bath for now. HD due tomorrow, no need for HD today, last HD yesterday - daily labs - renally dose meds - avoid nephrotoxins - renal diet - verbal consent obtained for HD # Nutrition: note albumin low, encourage po intake, protein diet # Anemia: last hemoglobin 9.8->8.7, follow, TACHO prn with HD # HTN: UF as tolerated, minimal given drainage. BP stable # Secondary Hyperparathyroidism: will continue home binders as needed- note Phoslo, vitamin D analogs prn # Intra-abdominal abscess: surgery/IR following, ID following Subjective Date of service: 03/16/22 Interval history: No acute issues noted, resting in bed this AM, now on contact precautions. Objective - Exam Narrative Exam: Constitutional: no acute distress Head: NC/AT Neck: supple Lungs: clear to auscultation CV: RRR, no M/R/G Abdomen: drains noted Back: nontender Extremities: no edema, pulses WNL Skin: intact Neuro: no focal deficits, alert and oriented x4 - Vital Signs Vital signs: Vital Signs - 12hr 03/15/22 03/15/22 03/15/22 21:09 21:41 21:52 Pulse Rate 75 75 Respiratory 20 Rate Blood Pressure 138/70 138/70 O2 Sat by Pulse 96 97 Oximetry 03/15/22 03/15/22 03/16/22 21:53 22:00 05:35 Pulse Rate 75 66 Respiratory 18 Rate Blood Pressure 138/70 138/72 O2 Sat by Pulse 96 96 Oximetry 03/16/22 06:05 Pulse Rate 66 Respiratory Rate Blood Pressure 138/72 O2 Sat by Pulse Oximetry - Lab 03/14/22 05:09 03/14/22 05:09 Most recent lab results Calcium 8.8 mg/dL (8.4-10.2) 03/14/22 05:09 Medications & Allergies - Medications Allergies/Adverse Reactions: Allergies No Known Allergies Allergy (Verified 03/12/22 08:54) Home Medications: Home Medications Medication Instructions Recorded Confirmed Last Taken Type Calcium Acetate 667 mg PO TIDAC 04/20/20 03/13/22 1 Day Ago History ~03/11/22 Pantoprazole Sodium 40 mg PO DAILY 12/19/21 03/12/22 1 Day Ago History ~03/11/22 Amlodipine Besylate [Norvasc] 10 mg PO DAILY 03/12/22 03/12/22 1 Day Ago History ~03/11/22 Loperamide [Imodium] 2 mg PO 4XD PRN 03/12/22 03/12/22 Unknown History Sucralfate [Carafate] 1 gm PO ACHS 03/12/22 03/12/22 Unknown History cloNIDine-TTS PATCH [Catapres-Tts 1 patch TD Q7D 03/12/22 03/12/22 Unknown History 0.3mg Patch] Albuterol Mdi (or & Nicu Only) 2 puff IH Q4H PRN 03/13/22 03/13/22 Unknown History [ProAir HFA Inhaler] Amitriptyline [Elavil] 50 mg PO QHS 03/13/22 03/13/22 Unknown History AtorvaSTATin [Lipitor] 40 mg PO QHS 03/13/22 03/13/22 2 Days Ago History ~03/11/22 B Complex 11/Folic/C/Biot/Zinc 1 tab PO QDAY 03/13/22 03/13/22 2 Days Ago History [Dialyvite with Zinc Tablet] ~03/11/22 Gabapentin [Neurontin] 100 mg PO TID PRN 03/13/22 03/13/22 Unknown History Losartan [Cozaar] 50 mg PO QDAY 03/13/22 03/13/22 2 Days Ago History ~03/11/22 Potassium Chloride [Klor-Con M20] 20 meq PO QDAY 03/13/22 03/13/22 Unknown History carvediloL [Coreg] 12.5 mg PO BID 03/13/22 03/13/22 2 Days Ago History ~03/11/22 hydrALAZINE [Apresoline TAB] 50 mg PO Q8H 03/13/22 03/13/22 Unknown History Active Medications: Generic Name Dose Route Start Last Admin Trade Name Freq PRN Reason Stop Dose Admin Acetaminophen 650 mg 03/12/22 13:48 Acetaminophen 325 Mg Tab PO Q4H PRN Pain MILD(1-3)/Fever >100.5/HULL Albumin Human 25 gm 03/12/22 18:34 Albumin Human 25% (25 Gm/100 Ml) Inj IV RYLAND PRN Hypotension Albuterol 2.5 mg 03/12/22 13:48 Albuterol 2.5 Mg/3 Ml Nebu IH Q4HRT PRN Shortness Of Breath Amitriptyline HCl 50 mg 03/13/22 22:00 03/15/22 21:53 Amitriptyline 25 Mg Tab PO 50 mg QHS THOMAS Administration Amlodipine Besylate 5 mg 03/13/22 10:00 03/15/22 13:28 Amlodipine 5 Mg Tab PO 5 mg DAILY THOMAS Administration Atorvastatin Calcium 40 mg 03/12/22 22:00 03/15/22 21:52 Atorvastatin 40 Mg Tab PO 40 mg QHS THOMAS Administration Calcium Acetate 667 mg 03/13/22 10:00 03/15/22 13:29 Calcium Acetate 667 Mg Cap PO 667 mg QDAY THOMAS Administration Carvedilol 12.5 mg 03/13/22 22:00 03/15/22 21:53 Carvedilol 12.5 Mg Tab PO 12.5 mg BID THOMAS Administration Clonidine HCl 0.3 mg 03/12/22 14:06 03/12/22 14:37 Clonidine Tts 0.3 Mg/24 Hr Patch TD 0.3 mg Mo THOMAS Administration Epoetin Maurice-epbx 20,000 unit 03/12/22 18:34 03/15/22 12:32 Epoetin Maurice-Epbx 20,000 Unit/1 Ml Vial IV 20,000 unit RYLAND PRN Administration hemodialysis Gabapentin 100 mg 03/13/22 14:30 03/14/22 22:01 Gabapentin 100 Mg Cap PO 100 mg TID PRN Administration burning pain Hydralazine HCl 50 mg 03/13/22 15:00 03/16/22 06:05 Hydralazine 25 Mg Tab PO 50 mg Q8HR THOMAS Administration Hydromorphone HCl 0.5 mg 03/12/22 13:48 03/14/22 22:01 Hydromorphone 0.5 Mg/0.5 Ml Inj IV 0.5 mg Q3H PRN Administration Pain , Severe (7-10) Sodium Chloride 1,000 mls @ 42 mls/hr 03/12/22 14:00 03/14/22 08:28 Nacl 0.9% 1000 Ml IV 42 mls/hr DIRECT THOMAS Administration Metronidazole 500 mg in 100 mls @ 100 mls/hr 03/12/22 14:00 03/16/22 06:04 Flagyl 500 Mg/100 Ml IV 100 mls/hr Q8H THOMAS Administration Protocol Sodium Chloride 100 mls @ 999 mls/hr 03/12/22 18:34 Nacl 0.9% IV RYLAND PRN Hypotension Cefepime HCl 1 gm in 100 mls @ 200 mls/hr 03/14/22 18:00 03/15/22 17:41 Cefepime/Ns 1 Gm/100 Ml IV 200 mls/hr QPM THOMAS Administration Protocol Losartan Potassium 100 mg 03/13/22 10:00 03/15/22 13:33 Losartan 50 Mg Tab PO 100 mg QDAY THOMAS Administration Multivit/Ca Carb/B Cmplx/FA/Prenat 1 cap 03/13/22 10:00 03/15/22 13:29 Folic Acid/Vit B Comp W-C 1 Mg (Renal Caps) PO 1 cap QDAY THOMAS Administration Ondansetron HCl 4 mg 03/12/22 13:48 Ondansetron 4 Mg/2 Ml Inj IV Q8H PRN Nausea And Vomiting Oxycodone/Acetaminophen 1 tab 03/12/22 13:48 03/15/22 21:48 Oxycodone /Acetaminophen 5-325mg Tab PO 1 tab Q6H PRN Administration Pain, Moderate (4-6) Pantoprazole Sodium 40 mg 03/13/22 10:00 03/15/22 13:29 Pantoprazole 40 Mg Tab PO 40 mg DAILY THOMAS Administration Sodium Chloride 10 ml 03/12/22 22:00 03/15/22 21:54 Sodium Chloride 0.9% 10 Ml Flush Syringe IV 10 ml BID THOMAS Administration Sodium Chloride 10 ml 03/12/22 13:48 03/13/22 20:22 Sodium Chloride 0.9% 10 Ml Flush Syringe IV 10 ml PRN PRN Administration LINE FLUSH Sucralfate 1 gm 03/12/22 16:30 03/15/22 21:52 Sucralfate 1 Gm Tab PO 1 gm ACHS THOMAS Administration
--- NOTE | 2022-03-16 09:40 | Progress Note ---
Assessment and Plan Assessment and plan: 61 YO Male with ESRD on HD(T,R,Sa) last dialyzed on , GERD, Crohn's Disease, Nicotine Dependence, HTN, Systolic CHF(EF 35%), COVID-19 2020, migraine HULL, PE not on therapeutic anticoagulation presents to ED for evaluation. Patient reports "my stomach hurts". Patient states that he had experienced abdominal pain over the past 6 days and persistent symptoms over the same timeframe. Patient states that pain is 8/10, constant, diffuse, without exacerbating or alleviating factors. Patient was seen and evaluated in his surgeon's office and underwent CT scan and was found to have findings consistent with intra-abdominal abscess. Patient was seen and evaluated at an outside hospital and instructed to seek further care. Patient subsequently seen and evaluated [facility] for the aforementioned symptoms. Patient then elected to seek second opinion at an outside hospital. EMS was subsequently notified and upon arrival the patient was found to be in distress and subsequently transported to [facility] for further care and evaluation of the aforementioned symptoms. The patient was seen and reevaluated in the emergency department. All lab and imaging studies reviewed. Patient underwent CT scan of the abdomen pelvis and was found to have intra-abdominal abscess complicated by abdominal wall cellulitis and abscess, systemic plantar response syndrome, end-stage renal disease in need of dialysis. Surgery team consulted in ED. Nephrology team consulted in ED. Patient denies fever, chills, chest pain, palpitation or productive cough, skin rash and recent contact, known exposure to COVID-19. Prior admission on 12/19/2021 reviewed. All medication listed at time of admission has been reconciled. Advanced care planning conducted in ED. 03/13: Patient now has 2 ADP drain placed under CT guidance as noted ;. CT- guided placement of a 12 Bengali APD drain in a lower abdominal fluid collection, CT-guided placement of a 10 Bengali APD drain and a lower right lateral fluid collection minimal drainage noted. We will continue on antibiotics. Will obtain ID consultation to assist with streamlining antibiotic management. He remains afebrile. Mildly hypoglycemic we will resume diet. He is currently on cefepime and vancomycin. And will follow cultures. Plan of care discussed with the patient in detail Imaging personally reviewed: CT abdomen pelvis: Perienteric intra-abdominal abscess adjacent to this distal small bowel marked enteritis of the distal small bowel. 03/14: Patient seen and examined, continues with drainage and antibiotics. 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 Status post CT-guided drainage with significant clinical improvement. Recommend continuing regular renal diet as tolerated. Should closely monitor drain output, if increases may need to decrease oral output and start parental feeding. Recommend continuing antibiotics and with discharge with the drains in place. Would keep for another 48 hours in the hospital for IV antibiotics and drain management" 03/15: Patient seen and examined continues to show improvement. Continues antibiotics for intra-abdominal abscess status post IR drainage which remains in place. Cultures are pending. Per ID we will continue with vancomycin and cefepime at this time with the understanding that given his previous surgeries or hospitalization he is high risk for antibiotics resistance. Nevertheless medication may be streamlined following cultures sensitivity and identification. No worsening pain noted at this time. Cultures so far showing gram-negative rods. Plan of care discussed with the patient in detail 03/16: Patient seen and examined no worsening distress. Cultures growing ESBL. Drain continues to drain. Discussed with ID for any adjustments in medications, they are reviewing neck adjustments as necessary. Surgery continues to follow further guidance. Mildly elevated INR, patients states no hx of anticoagulant use. ?SECONDARY COAGULOPATHY DUE TO ESRD. continue to monitor. anticipate discharge in am once Abx arranged. (1) Intra-abdominal abscess-ESBL per culture Current Visit: Yes Status: Acute Plan to address problem: CT scan abdomen pelvis, serial abdominal exam, IV antibiotic therapy, interventional radiology team consulted, surgery team consulted. Patient pending surgical intervention. Bowel rest, IV fluid resuscitation therapy, supportive care, pain control. (2) Abdominal wall cellulitis Current Visit: Yes Status: Acute Plan to address problem: Interventional radiology team consulted, surgery team consulted, CBC, IV ant ibiotic therapy, CT scan abdomen pelvis, supportive care. (3) End stage renal disease Current Visit: Yes Status: Acute Plan to address problem: Nephrology team consulted in ED, dialysis as per renal team, (4) SIRS (systemic inflammatory response syndrome) Current Visit: Yes Status: Acute Plan to address problem: CBC, CMP, chest x-ray, IV antibiotic therapy, supportive care. Repeat CBC in AM. (5) Malnutrition Current Visit: Yes Status: Acute Qualifiers: Malnutrition type: protein-calorie malnutrition Protein-calorie malnutrition severity: moderate Qualified Code(s): E44.0 - Moderate protein- calorie malnutrition Plan to address problem: Increase protein intake, dietary supplementation. (6) Crohn's disease Current Visit: Yes Status: Acute Qualifiers: Digestive disease complication type: with abscess Plan to address problem: CT scan of abdomen pelvis, supportive care, pain control, IV antibiotic therapy, surgery team consulted. (7) Nicotine dependence Current Visit: Yes Status: Acute Qualifiers: Nicotine product type: cigarettes Substance use status: in withdrawal Qualified Code(s): F17.213 - Nicotine dependence, cigarettes, with withdrawal Plan to address problem: Smoking cessation counseled, supportive care, behavior change counseling, +15 minutes. (8) GERD (gastroesophageal reflux disease) Current Visit: Yes Status: Acute Qualifiers: Esophagitis presence: without esophagitis Qualified Code(s): K21.9 - Gastro-esophageal reflux disease without esophagitis Plan to address problem: PPI therapy, supportive care. (9) Hypertension Current Visit: Yes Status: Acute Qualifiers: Hypertension type: primary hypertension Qualified Code(s): I10 - Essential (primary) hypertension Plan to address problem: Monitor blood pressure every shift, continue medical management. (10) Migraine Current Visit: Yes Status: Acute Qualifiers: Intractability: not intractable Plan to address problem: Pain control, no acute exacerbation at this time, supportive care, pain control. (11) DVT prophylaxis Current Visit: Yes Status: Acute Plan to address problem: SCD to bilateral lower extremities while in bed (12) Advance care planning Current Visit: Yes Status: Acute Plan to address problem: Disease education done, care plan discussed, diagnoses discussed, prognosis discussed, patient is full code. Patient knowledges understanding and agreement with care plan, +30 minutes. (13) Preventative health care Current Visit: Yes Status: Acute Plan to address problem: Patient counseled regarding outpatient follow-up with primary care physician for all age and risk factor appropriate screening test. +30 minutes. History Interval history: Patient seen and examined reports improvement, no new complaints reported. No fever reported. Nursing staff called reporting Culture growing ESBL. Hospitalist Physical - Physical exam Narrative exam: VITAL SIGNS: Reviewed. GENERAL: The patient appears normally developed, Vital signs as documented. HEAD: No signs of head trauma. EYES: Pupils are equal. Extraocular motions intact. EARS: Hearing grossly intact. MOUTH: Oropharynx is normal. NECK: No adenopathy, no JVD. CHEST: Chest with clear breath sounds bilaterally. No wheezes, rales, or rhonchi. CARDIAC: Regular rate and rhythm. S1 and S2, without murmurs, gallops, or rubs. VASCULAR: No Edema. Peripheral pulses normal and equal in all extremities. ABDOMEN: 2 Abdominal drain, lower quadrant, Soft, non tender and non distended. No rebound or guarding, and no masses palpated. Bowel Sounds normal. MUSCULOSKELETAL: Good range of motion of all major joints. Extremities without clubbing, cyanosis or edema. NEUROLOGIC EXAM: Alert and oriented x 3 No focal sensory or strength deficits. Speech normal. Follows commands. PSYCHIATRIC: Mood normal. SKIN: well healed surgical scar, midline, detail exam as documented in skin assessment - Constitutional Vitals: Temp Pulse Resp BP Pulse Ox 99.1 F 66 18 138/72 96 03/15/22 17:31 03/16/22 06:05 03/16/22 05:35 03/16/22 06:05 03/16/22 05:35 General appearance: Present: mild distress Results - Labs CBC & Chem 7: 03/14/22 05:09 03/14/22 05:09 Labs: Laboratory Last Values WBC 5.0 K/mm3 (4.5-11.0) 03/14/22 05:09 RBC 2.98 M/mm3 (3.65-5.03) L 03/14/22 05:09 Hgb 8.7 gm/dl (11.8-15.2) L 03/14/22 05:09 Hct 27.1 % (35.5-45.6) L 03/14/22 05:09 MCV 91 fl (84-94) 03/14/22 05:09 MCH 29 pg (28-32) 03/14/22 05:09 MCHC 32 % (32-34) 03/14/22 05:09 RDW 15.1 % (13.2-15.2) 03/14/22 05:09 Plt Count 219 K/mm3 (140-440) 03/14/22 05:09 Lymph % (Auto) 10.5 % (13.4-35.0) L 03/13/22 05:35 [place] % (Auto) 8.3 % (0.0-7.3) H 03/13/22 05:35 Eos % (Auto) 3.4 % (0.0-4.3) 03/13/22 05:35 Baso % (Auto) 0.4 % (0.0-1.8) 03/13/22 05:35 Lymph # (Auto) 0.9 K/mm3 (1.2-5.4) L 03/13/22 05:35 [place] # (Auto) 0.7 K/mm3 (0.0-0.8) 03/13/22 05:35 Eos # (Auto) 0.3 K/mm3 (0.0-0.4) 03/13/22 05:35 Baso # (Auto) 0.0 K/mm3 (0.0-0.1) 03/13/22 05:35 Seg Neutrophils % 77.4 % (40.0-70.0) H 03/13/22 05:35 Seg Neutrophils # 6.4 K/mm3 (1.8-7.7) 03/13/22 05:35 PT 20.9 Sec. (12.2-14.9) H 03/12/22 09:52 INR 1.59 (0.87-1.13) H 03/12/22 09:52 Sodium 140 mmol/L (137-145) 03/14/22 05:09 Potassium 3.8 mmol/L (3.6-5.0) D 03/14/22 05:09 Chloride 103.5 mmol/L (98-107) 03/14/22 05:09 Carbon Dioxide 26 mmol/L (22-30) 03/14/22 05:09 Anion Gap 14 mmol/L 03/14/22 05:09 BUN 32 mg/dL (9-20) H 03/14/22 05:09 Creatinine 10.4 mg/dL (0.8-1.3) H 03/14/22 05:09 Estimated GFR 6 ml/min 03/14/22 05:09 BUN/Creatinine Ratio 3 % 03/14/22 05:09 Glucose 100 mg/dL (75-100) 03/14/22 05:09 Calcium 8.8 mg/dL (8.4-10.2) 03/14/22 05:09 Total Bilirubin 0.30 mg/dL (0.1-1.2) 03/14/22 05:09 Direct Bilirubin < 0.2 mg/dL (0-0.2) 03/12/22 09:52 Indirect Bilirubin 0.0 mg/dL 03/12/22 09:52 AST 10 units/L (5-40) 03/14/22 05:09 ALT < 5 units/L (7-56) L 03/14/22 05:09 Alkaline Phosphatase 102 units/L (35-129) 03/14/22 05:09 Total Protein 5.9 g/dL (6.3-8.2) L D 03/14/22 05:09 Albumin 2.3 g/dL (3.9-5) L 03/14/22 05:09 Albumin/Globulin Ratio 0.6 % 03/14/22 05:09 Lipase 8 units/L (13-60) L 03/12/22 09:52 Hepatitis A IgM Ab Non-reactive (NonReactive) 03/12/22 14:53 Hep Bs Antigen Non-reactive (Negative) 03/12/22 14:53 Hep B Core IgM Ab Non-reactive (NonReactive) 03/12/22 14:53 Hepatitis C Antibody Non-reactive (NonReactive) 03/12/22 14:53 Microbiology: Microbiology 03/12/22 Unknown Abdomen Surgical Culture - Preliminary Klebsiella Pneumoniae Escherichia Coli Jeffery/IV: Voiding Method Toilet Active Medications - Current Medications Current Medications: Generic Name Dose Route Start Last Admin Trade Name Freq PRN Reason Stop Dose Admin Acetaminophen 650 mg 03/12/22 13:48 Acetaminophen 325 Mg Tab PO Q4H PRN Pain MILD(1-3)/Fever >100.5/HULL Albumin Human 25 gm 03/12/22 18:34 Albumin Human 25% (25 Gm/100 Ml) Inj IV RYLAND PRN Hypotension Albuterol 2.5 mg 03/12/22 13:48 Albuterol 2.5 Mg/3 Ml Nebu IH Q4HRT PRN Shortness Of Breath Amitriptyline HCl 50 mg 03/13/22 22:00 03/15/22 21:53 Amitriptyline 25 Mg Tab PO 50 mg QHS THOMAS Administration Amlodipine Besylate 5 mg 03/13/22 10:00 03/15/22 13:28 Amlodipine 5 Mg Tab PO 5 mg DAILY THOMAS Administration Atorvastatin Calcium 40 mg 03/12/22 22:00 03/15/22 21:52 Atorvastatin 40 Mg Tab PO 40 mg QHS THOMAS Administration Calcium Acetate 667 mg 03/13/22 10:00 03/15/22 13:29 Calcium Acetate 667 Mg Cap PO 667 mg QDAY THOMAS Administration Carvedilol 12.5 mg 03/13/22 22:00 03/15/22 21:53 Carvedilol 12.5 Mg Tab PO 12.5 mg BID THOMAS Administration Clonidine HCl 0.3 mg 03/12/22 14:06 03/12/22 14:37 Clonidine Tts 0.3 Mg/24 Hr Patch TD 0.3 mg Mo THOMAS Administration Epoetin Maurice-epbx 20,000 unit 03/12/22 18:34 03/15/22 12:32 Epoetin Maurice-Epbx 20,000 Unit/1 Ml Vial IV 20,000 unit RYLAND PRN Administration hemodialysis Gabapentin 100 mg 03/13/22 14:30 03/14/22 22:01 Gabapentin 100 Mg Cap PO 100 mg TID PRN Administration burning pain Hydralazine HCl 50 mg 03/13/22 15:00 03/16/22 06:05 Hydralazine 25 Mg Tab PO 50 mg Q8HR THOMAS Administration Hydromorphone HCl 0.5 mg 03/12/22 13:48 03/14/22 22:01 Hydromorphone 0.5 Mg/0.5 Ml Inj IV 0.5 mg Q3H PRN Administration Pain , Severe (7-10) Sodium Chloride 1,000 mls @ 42 mls/hr 03/12/22 14:00 03/14/22 08:28 Nacl 0.9% 1000 Ml IV 42 mls/hr DIRECT THOMAS Administration Metronidazole 500 mg in 100 mls @ 100 mls/hr 03/12/22 14:00 03/16/22 06:04 Flagyl 500 Mg/100 Ml IV 100 mls/hr Q8H THOMAS Administration Protocol Sodium Chloride 100 mls @ 999 mls/hr 03/12/22 18:34 Nacl 0.9% IV RYLAND PRN Hypotension Cefepime HCl 1 gm in 100 mls @ 200 mls/hr 03/14/22 18:00 03/15/22 17:41 Cefepime/Ns 1 Gm/100 Ml IV 200 mls/hr QPM THOMAS Administration Protocol Losartan Potassium 100 mg 03/13/22 10:00 03/15/22 13:33 Losartan 50 Mg Tab PO 100 mg QDAY THOMAS Administration Multivit/Ca Carb/B Cmplx/FA/Prenat 1 cap 03/13/22 10:00 03/15/22 13:29 Folic Acid/Vit B Comp W-C 1 Mg (Renal Caps) PO 1 cap QDAY THOMAS Administration Ondansetron HCl 4 mg 03/12/22 13:48 Ondansetron 4 Mg/2 Ml Inj IV Q8H PRN Nausea And Vomiting Oxycodone/Acetaminophen 1 tab 03/12/22 13:48 03/15/22 21:48 Oxycodone /Acetaminophen 5-325mg Tab PO 1 tab Q6H PRN Administration Pain, Moderate (4-6) Pantoprazole Sodium 40 mg 03/13/22 10:00 03/15/22 13:29 Pantoprazole 40 Mg Tab PO 40 mg DAILY THOMAS Administration Sodium Chloride 10 ml 03/12/22 22:00 03/15/22 21:54 Sodium Chloride 0.9% 10 Ml Flush Syringe IV 10 ml BID THOMAS Administration Sodium Chloride 10 ml 03/12/22 13:48 03/13/22 20:22 Sodium Chloride 0.9% 10 Ml Flush Syringe IV 10 ml PRN PRN Administration LINE FLUSH Sucralfate 1 gm 03/12/22 16:30 03/15/22 21:52 Sucralfate 1 Gm Tab PO 1 gm ACHS THOMAS Administration Nutrition/Malnutrition Assess - Dietary Evaluation Nutrition/Malnutrition Findings: Nutrition Notes Start: 03/13/22 16:49 Freq: Status: Active Protocol: Document 03/13/22 16:49 JEAN (Rec: 03/13/22 17:21 JEAN [id number]) Nutrition Notes 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 Current Diet Renal Diet (since L 03/13). Labs/Tests 03/13: Na 136, Cl 97.7, BUN 64 , Crea 16.3, Glu 72. Pertinent Medications 03/13: Phoslo, Renal Multivitamins, others nutritionally unremarkable. Height 5 ft 7 in Weight 65 kg [place] Body Weight (kg) 67.27 BMI 22.4 Intake Prior to Admission Poor Weight change and time frame Pt staes having, unintentionally, loss more than 34 lb recently. Weight Status Appropriate Subjective/Other Information RD consult for difficulty chewing and risk of malnutrition assessments. No reports available on Pt's PO intake of meals at the time , will assess at F/U. Pt is on Room Air, O2 saturation @ 97%, according to Physical Assessment History notes. Pt complained of abdominal pain and poor appetite at admission, according to Physical Assessment History notes. Pt presents 2 small surgical abdominal wonds with drainages placed, according to Physical Assessment History notes. There are no concerns for difficulkty chewing mentioned in the chart, I will disregard this concern at this time. Pt shows no longer signs of concern for risk of malnutriton at the time after abdominal abscess drainage and medical tratment, according to Physical Assessment History and Progress notes. Percent of energy/protein needs met: Prescribed Renal Diet provides for energy/protein needs (2, 072 Kcal/77 g) during LOS. Burn Absent Trauma Absent GI Symptoms Other Food Allergy No Skin Integrity/Comment 2 small surgical abdominal wonds. 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 Is patient on ventilator? No Is Patient Ambulatory and/or Out of Bed Yes REE-([place]-St. Jeor-ambulatory/OOB) [ 1824.719 [id number]] Calculation Used for Recommendations [place]-St Jeor Additional Notes Protein: 1.5-2 g/Kg ABW; 98- 130 g/day. Fluids: 1 ml/Kcal, or as per MD. Nutrition Intervention Change Diet Order: Continue Renal Diet. Follow-Up By: 03/20/22 Additional Comments Continue monitoring food tolerance, %PO intake of meals , and BM.
--- NOTE | 2022-03-16 10:32 | Progress Note ---
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 Status post CT-guided drainage with significant clinical improvement. Recommend continuing regular renal diet as tolerated. Should closely monitor drain output, if increases may need to decrease oral output and start parental feeding. Recommend continuing antibiotics and with discharge with the drains in place. From general surgery perspective no acute surgical intervention is planned. Can be discharged when cleared by ID and renal. Patient can follow-up in the office in 1 to 2 weeks. I encouraged patient and his daughter to record drain output and to call my office if there is a steep rapid increase. Subjective Date of service: 03/16/22 Patient Reports: Positive: no new complaints Narrative: no acute events. Patient is tolerating his diet although he says he does not eat a lot because he does not like his options. He denies any abdominal pain nausea vomiting. Objective Vital Signs - 12hr 03/16/22 03/16/22 05:35 06:05 Pulse Rate 66 66 Respiratory 18 Rate Blood Pressure 138/72 138/72 O2 Sat by Pulse 96 Oximetry - General physical appearance well developed, no distress, no pain - Eyes PERRL - ENT no hearing loss - Respiratory normal expansion, normal respiratory effort - Abdomen soft, not tender, other (Drains intact. Superficial 1 was serosanguineous, intra-abdominal drain with light brown. Total drainage approximately 40 cc recorded last 24 hours. Abdomen is nontender.) - Neurologic normal coordination - Psychiatric oriented to time, oriented to person, oriented to place - Labs 03/14/22 05:09 03/14/22 05:09
[2022-03-16] MEDS: PANTOPRAZOLE 40 MG TAB PO SCH (10:42)
[2022-03-16] MEDS: LOSARTAN 50 MG TAB PO SCH (10:42)
[2022-03-16] MEDS: amLODIPine 5 MG TAB PO SCH (10:42)
[2022-03-16] MEDS: FOLIC ACID/VIT B COMP W-C 1 MG (RENAL CAPS) PO SCH (10:42)
[2022-03-16] MEDS: SUCRALFATE 1 GM TAB PO SCH ×4 (10:42→21:49)
[2022-03-16] MEDS: carvediloL 12.5 MG TAB PO SCH ×2 (10:42→21:48)
[2022-03-16] MEDS: CALCIUM ACETATE 667 MG CAP PO SCH (10:42)
[2022-03-16] MEDS ORDERED: ERTAPENEM 0.5 GM in SODIUM CHLORIDE 0.9% 50 ML IV SCH ×2 (12:00→18:00)
[2022-03-16] MEDS: oxyCODONE /ACETAMINOPHEN 5-325MG TAB PO PRN (14:08)
--- NOTE | 2022-03-16 16:39 | Progress Note ---
Assessment and Plan Cultures: Abdominal abscess culture from drain: Gram-negative vargas, gram-negative vargas awaiting finalization A/P: 61-year-old man past medical history ESRD on HD, Crohn's, GERD, hypertension, pulmonary embolism #Intra-abdominal abscess: Status post IR drainage of the abscesses with drains in place. Awaiting culture results. 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 #Abdominal wall cellulitis: Associated with his abscess. #Crohn's #ESRD on HD: Renally dose medications Recs: -Changed to ertapenem 500 mg daily -Follow-up drainage cultures from his abscess. Given his previous surgeries and hospitalizations he is high risk for antibiotic resistance. -Case management consulted for ertapenem 500 mg with hemodialysis until 03/30/[address] chin Thank you for the consult, we will sign off. Please call for questions. Andre Redding MD [facility], [facility] ([facility]) O: [phone] F: [phone] Subjective Date of service: 03/16/22 Interval history: Afebrile, normal white count. Cultures with ESBL. Objective - Exam Narrative Exam: Physical Exam: Constitutional: Alert, cooperative. No acute distress Head, Ears, Nose: Normocephalic, atraumatic. External ears, nose normal Eyes: Conjunctivae/corneas clear. No icterus. No ptosis. Neck: Supple, no meningeal signs Oral: dentition fair, no thrush Cardiovascular: S1, S2 normal. Respiratory: Good air entry, clear to auscultation bilaterally GI: Soft, non-tender; drains in place Musculoskeletal: No pedal edema, no cyanosis. Skin: No rash or abscess Hem/Lymphatic: No palpable cervical or supraclavicular nodes. No lymphangitis Psych: Mood ok. Affect normal Neurological: Awake, alert, oriented. No gross abnormality - Constitutional Vitals: Vital Signs Temp Pulse Resp BP Pulse Ox 99.1 F 66 18 138/72 97 03/15/22 17:31 03/16/22 06:05 03/16/22 05:35 03/16/22 06:05 03/16/22 10:00 Temperature -Last 24 Hours Temperature 99.1 F - Labs CBC & Chem 7: 03/14/22 05:09 03/14/22 05:09
[2022-03-16] MEDS: HYDROmorphone 0.5 MG/0.5 ML INJ IV PRN (17:37)
[2022-03-16] MEDS: AMITRIPTYLINE 25 MG TAB PO SCH (21:49)
[2022-03-17] MEDS: HYDROmorphone 0.5 MG/0.5 ML INJ IV PRN (01:06)
[2022-03-17] MEDS: hydrALAZINE 25 MG TAB PO SCH (05:32)
[2022-03-17] MEDS: SUCRALFATE 1 GM TAB PO SCH ×2 (08:24→11:55)
--- NOTE | 2022-03-17 08:38 | Discharge Summary ---
Providers - Providers Date of Admission: 03/12/22 13:48 Attending physician: JOHN PLATT MD 03/12/22 11:04 Consult to Interventional Radiology [CONS] Routine Consulting Provider: LAXMI OLIVIA Reason For Exam: eval for CT guided drain of intra-abdominal absces Notified:: - 03/12/22 13:54 Consult to Physician [CONS] Routine Comment: Consulting Provider: GRACE GEIGER Physician Instructions: Reason For Exam: esrd 03/13/22 07:44 Consult to Physician [CONS] Routine Comment: Consulting Provider: JARROD MCKENNA Physician Instructions: Reason For Exam: abdominal wall abscess 03/16/22 12:24 Consult to Case Management [CONS] Routine Services Needed at Discharge: Home Health Services Notified:: DICK Additional Physician Instructions: Andre Lundberg MD [facility] M: [phone] O: [phone] F: [phone] Outpatient parenteral antibiotic therapy orders Diagnosis: Intra-abdominal abscess Antibiotic administration: Ertapenem 500 mg after HD until 03/30/2022 Line: HD line Lab monitoring: CBC with differential, CMP, CRP once per week preferably on Saturday or Saturday For critical labs, call office: [phone] Andre Lundberg Primary care physician: TALITA DE LA CRUZ Hospitalization Reason for admission: Abdominal pain Condition: Stable Hospital course: 61 YO Male with ESRD on HD(T,R,Sa) last dialyzed on , GERD, Crohn's Disease, Nicotine Dependence, HTN, Systolic CHF(EF 35%), COVID-2020, migraine HULL, PE not on therapeutic anticoagulation presents to ED for evaluation. Patient reports "my stomach hurts". Patient states that he had experienced abdominal pain over the past 6 days and persistent symptoms over the same timeframe. Patient states that pain is 8/10, constant, diffuse, without exacerbating or alleviating factors. Patient was seen and evaluated in his surgeon's office and underwent CT scan and was found to have findings consistent with intra-abdominal abscess. Patient was seen and evaluated at an outside hospital and instructed to seek further care. Patient subsequently seen and evaluated [facility] for the aforementioned symptoms. Patient then elected to seek second opinion at an outside hospital. EMS was subsequently notified and upon arrival the patient was found to be in distress and subsequently transported to [facility] for further care and evaluation of the aforementioned symptoms. The patient was seen and reevaluated in the emergency department. All lab and imaging stud ies reviewed. Patient underwent CT scan of the abdomen pelvis and was found to have intra-abdominal abscess complicated by abdominal wall cellulitis and abscess, systemic plantar response syndrome, end-stage renal disease in need of dialysis. Surgery team consulted in ED. Nephrology team consulted in ED. Patient denies fever, chills, chest pain, palpitation or productive cough, skin rash and recent contact, known exposure to COVID-19. Prior admission on 12/19/2021 reviewed. All medication listed at time of admission has been reconciled. Advanced care planning conducted in ED. 03/13: Patient now has 2 [address] drain placed under CT guidance as noted ;. CT- guided placement of a 12 [place] APD drain in a lower abdominal fluid collection, CT-guided placement of a 10 [place] APD drain and a lower right lateral fluid collection minimal drainage noted. We will continue on antibiotics. Will obtain ID consultation to assist with streamlining antibiotic management. He remains afebrile. Mildly hypoglycemic we will resume diet. He is currently on cefepime and vancomycin. And will follow cultures. Plan of care discussed with the patient in detail Imaging personally reviewed: CT abdomen pelvis: Perienteric intra-abdominal abscess adjacent to this distal small bowel marked enteritis of the distal small bowel. 03/14: Patient seen and examined, continues with drainage and antibiotics. 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 Status post CT-guided drainage with significant clinical improvement. Recommend continuing regular renal diet as tolerated. Should closely monitor drain output, if increases may need to decrease oral output and start parental feeding. Recommend continuing antibiotics and with discharge with the drains in place. Would keep for another 48 hours in the hospital for IV antibiotics and drain management" 03/15: Patient seen and examined continues to show improvement. Continues antibiotics for intra-abdominal abscess status post IR drainage which remains in place. Cultures are pending. Per ID we will continue with vancomycin and cefepime at this time with the understanding that given his previous surgeries or hospitalization he is high risk for antibiotics resistance. Nevertheless medication may be streamlined following cultures sensitivity and identification. No worsening pain noted at this time. Cultures so far showing gram-negative rods. Plan of care discussed with the patient in detail 03/16: Patient seen and examined no worsening distress. Cultures growing ESBL. Drain continues to drain. Discussed with ID for any adjustments in medications, they are reviewing neck adjustments as necessary. Surgery continues to follow further guidance. Mildly elevated INR, patients states no hx of anticoagulant use. ?SECONDARY COAGULOPATHY DUE TO ESRD. continue to monitor. anticipate discharge in am once Abx arranged. 03/17: Patient seen and examined anticipated for discharge today as dialysis center had call from that they had the medication unfortunately this morning the dialysis center called back to the general internal medicine physician who advised that they do not have the antibiotic medication will defer back to infectious disease to see if there is any alternative. For now continue current management continue to document output from-Per surgery " closely monitor drain output, if increases may need to decrease oral output and start parental feeding. Recommend continuing antibiotics and with discharge with the drains in place. From general surgery perspective no acute surgical intervention is planned. Can be discharged when cleared by ID and renal. Patient can follow-up in the office in 1 to 2 weeks. I encouraged patient and his daughter to record drain output and to call my office if there is a steep rapid increase" Addendum After careful discussion with infectious disease physician and also reviewing the sensitivity, infectious disease doctor changed her antibiotics to p.o. 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 Patient pending surgical intervention. Bowel rest, IV fluid resuscitation therapy, supportive care, pain control. (2) Abdominal wall cellulitis Current Visit: Yes Status: Acute Plan to address problem: Interventional radiology team consulted, surgery team consulted, CBC, IV antibiotic therapy, CT scan abdomen pelvis, supportive care. (3) End stage renal disease Current Visit: Yes Status: Acute Plan to address problem: Nephrology team consulted in ED, dialysis as per renal team, (4) SIRS (systemic inflammatory response syndrome) Current Visit: Yes Status: Acute Plan to address problem: CBC, CMP, chest x-ray, IV antibiotic therapy, supportive care. Repeat CBC in AM. (5) Malnutrition Current Visit: Yes Status: Acute Qualifiers: Malnutrition type: protein-calorie malnutrition Protein-calorie malnutrition severity: moderate Qualified Code(s): E44.0 - Moderate protein- calorie malnutrition Plan to address problem: Increase protein intake, dietary supplementation. (6) Crohn's disease Current Visit: Yes Status: Acute Qualifiers: Digestive disease complication type: with abscess Plan to address problem: CT scan of abdomen pelvis, supportive care, pain control, IV antibiotic therapy, surgery team consulted. (7) Nicotine dependence Current Visit: Yes Status: Acute Qualifiers: Nicotine product type: cigarettes Substance use status: in withdrawal Qualified Code(s): F17.213 - Nicotine dependence, cigarettes, with withdrawal Plan to address problem: Smoking cessation counseled, supportive care, behavior change counseling, +15 minutes. (8) GERD (gastroesophageal reflux disease) Current Visit: Yes Status: Acute Qualifiers: Esophagitis presence: without esophagitis Qualified Code(s): K21.9 - Gastro-esophageal reflux disease without esophagitis Plan to address problem: PPI therapy, supportive care. (9) Hypertension Current Visit: Yes Status: Acute Qualifiers: Hypertension type: primary hypertension Qualified Code(s): I10 - Essential (primary) hypertension Plan to address problem: Monitor blood pressure every shift, continue medical management. (10) Migraine Current Visit: Yes Status: Acute Qualifiers: Intractability: not intractable Plan to address problem: Pain control, no acute exacerbation at this time, supportive care, pain control. 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 GENERAL: The patient appears normally developed, Vital signs as documented. HEAD: No signs of head trauma. EYES: Pupils are equal. Extraocular motions intact. EARS: Hearing grossly intact. MOUTH: Oropharynx is normal. NECK: No adenopathy, no JVD. CHEST: Chest with clear breath sounds bilaterally. No wheezes, rales, or rhonchi. CARDIAC: Regular rate and rhythm. S1 and S2, without murmurs, gallops, or rubs. VASCULAR: No Edema. Peripheral pulses normal and equal in all extremities. ABDOMEN: 2 Abdominal drain, lower quadrant, Soft, non tender and non distended. No rebound or guarding, and no masses palpated. Bowel Sounds normal. MUSCULOSKELETAL: Good range of motion of all major joints. Extremities without clubbing, cyanosis or edema. NEUROLOGIC EXAM: Alert and oriented x 3 No focal sensory or strength deficits. Speech normal. Follows commands. PSYCHIATRIC: Mood normal. SKIN: well healed surgical scar, midline, detail exam as documented in skin assessment - Constitutional Vitals: Temp Pulse Resp BP Pulse Ox 99.1 F 67 18 124/62 99 03/15/22 17:31 03/17/22 05:32 03/16/22 05:35 03/17/22 05:32 03/17/22 08:01 Plan Activity: advance as tolerated, fall precautions Diet: renal Special Instructions: restrict fluid intake to (1000cc/day) Additional Instructions: closely monitor drain output, if increases may need to decrease oral output and start parental feeding. Recommend continuing antibiotics and with discharge with the drains in place. From general surgery perspective no acute surgical intervention is planned. Can be discharged when cleared by ID and renal. Patient can follow-up in the office in 1 to 2 weeks. Care Plan Goals: closely monitor drain output, if increases may need to decrease oral output and start parental feeding. Recommend continuing antibiotics and with discharge with the drains in place. From general surgery perspective no acute surgical intervention is planned. Can be discharged when cleared by ID and renal. Patient can follow-up in the office in 1 to 2 weeks. Follow up with: TALITA DE LA CRUZ MD [Primary Care Provider] - 3-5 Days CONNOR GTZ MD [Staff Physician] - 7 Days LOBO LUNDBERG MD [Staff Physician] - 7 Days LAXMI OLSON MD [Staff Physician] - 7 Days Prescriptions: amLODIPine 5 mg PO DAILY #30 tablet Ciprofloxacin HCl 500 mg PO DAILY #14 tab Losartan [Cozaar] 100 mg PO QDAY #60 tablet oxyCODONE /ACETAMINOPHEN [Percocet 5/325 mg] 1 tab PO Q6H PRN #14 tablet PRN Reason: Pain, Moderate (4-6) Folic Acid/Vit B Comp W-C [Renal Caps] 1 cap PO QDAY #30 capsule
--- NOTE | 2022-03-17 08:54 | Progress Note ---
Assessment and Plan Assessment and plan: 61 YO Male with ESRD on HD(T,R,Sa) last dialyzed on , GERD, Crohn's Disease, Nicotine Dependence, HTN, Systolic CHF(EF 35%), COVID-19 2020, migraine HULL, PE not on therapeutic anticoagulation presents to ED for evaluation. Patient reports "my stomach hurts". Patient states that he had experienced abdominal pain over the past 6 days and persistent symptoms over the same timeframe. Patient states that pain is 8/10, constant, diffuse, without exacerbating or alleviating factors. Patient was seen and evaluated in his surgeon's office and underwent CT scan and was found to have findings consistent with intra-abdominal abscess. Patient was seen and evaluated at an outside hospital and instructed to seek further care. Patient subsequently seen and evaluated [facility] for the aforementioned symptoms. Patient then elected to seek second opinion at an outside hospital. EMS was subsequently notified and upon arrival the patient was found to be in distress and subsequently transported to [facility] for further care and evaluation of the aforementioned symptoms. The patient was seen and reevaluated in the emergency department. All lab and imaging studies reviewed. Patient underwent CT scan of the abdomen pelvis and was found to have intra-abdominal abscess complicated by abdominal wall cellulitis and abscess, systemic plantar response syndrome, end-stage renal disease in need of dialysis. Surgery team consulted in ED. Nephrology team consulted in ED. Patient denies fever, chills, chest pain, palpitation or productive cough, skin rash and recent contact, known exposure to COVID-19. Prior admission on 12/19/2021 reviewed. All medication listed at time of admission has been reconciled. Advanced care planning conducted in ED. 03/13: Patient now has 2 ADP drain placed under CT guidance as noted ;. CT- guided placement of a 12 Sinhala APD drain in a lower abdominal fluid collection, CT-guided placement of a 10 Sinhala APD drain and a lower right lateral fluid collection minimal drainage noted. We will continue on antibiotics. Will obtain ID consultation to assist with streamlining antibiotic management. He remains afebrile. Mildly hypoglycemic we will resume diet. He is currently on cefepime and vancomycin. And will follow cultures. Plan of care discussed with the patient in detail Imaging personally reviewed: CT abdomen pelvis: Perienteric intra-abdominal abscess adjacent to this distal small bowel marked enteritis of the distal small bowel. 03/14: Patient seen and examined, continues with drainage and antibiotics. 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 Status post CT-guided drainage with significant clinical improvement. Recommend continuing regular renal diet as tolerated. Should closely monitor drain output, if increases may need to decrease oral output and start parental feeding. Recommend continuing antibiotics and with discharge with the drains in place. Would keep for another 48 hours in the hospital for IV antibiotics and drain management" 03/15: Patient seen and examined continues to show improvement. Continues antibiotics for intra-abdominal abscess status post IR drainage which remains in place. Cultures are pending. Per ID we will continue with vancomycin and cefepime at this time with the understanding that given his previous surgeries or hospitalization he is high risk for antibiotics resistance. Nevertheless medication may be streamlined following cultures sensitivity and identification. No worsening pain noted at this time. Cultures so far showing gram-negative rods. Plan of care discussed with the patient in detail 03/16: Patient seen and examined no worsening distress. Cultures growing ESBL. Drain continues to drain. Discussed with ID for any adjustments in medications, they are reviewing neck adjustments as necessary. Surgery continues to follow further guidance. Mildly elevated INR, patients states no hx of anticoagulant use. ?SECONDARY COAGULOPATHY DUE TO ESRD. continue to monitor. anticipate discharge in am once Abx arranged. 03/17: Patient seen and examined anticipated for discharge today as dialysis center had call from that they had the medication unfortunately this morning the dialysis center called back to the bingo worker who advised that they do not have the antibiotic medication will defer back to infectious disease to see if there is any alternative. For now continue current management continue to document output from-Per surgery " closely monitor drain output, if increases may need to decrease oral output and start parental feeding. Recommend continuing antibiotics and with discharge with the drains in place. From general surgery perspective no acute surgical intervention is planned. Can be discharged when cleared by ID and renal. Patient can follow-up in the office in 1 to 2 weeks. I encouraged patient and his daughter to record drain output and to call my office if there is a steep rapid increase" At this point we will await any adjustments in medication by the infectious disease physician. (1) enterocutaneous fistula/ intra-abdominal abscess-ESBL per culture Current Visit: Yes Status: Acute Plan to address problem: CT scan abdomen pelvis, serial abdominal exam, IV antibiotic therapy, interventional radiology team consulted, surgery team consulted. Patient pending surgical intervention. Bowel rest, IV fluid resuscitation therapy, supportive care, pain control. (2) Abdominal wall cellulitis Current Visit: Yes Status: Acute Plan to address problem: Interventional radiology team consulted, surgery team consulted, CBC, IV antibiotic therapy, CT scan abdomen pelvis, supportive care. (3) End stage renal disease Current Visit: Yes Status: Acute Plan to address problem: Nephrology team consulted in ED, dialysis as per renal team, (4) SIRS (systemic inflammatory response syndrome) Current Visit: Yes Status: Acute Plan to address problem: CBC, CMP, chest x-ray, IV antibiotic therapy, supportive care. Repeat CBC in AM. (5) Malnutrition Current Visit: Yes Status: Acute Qualifiers: Malnutrition type: protein-calorie malnutrition Protein-calorie malnutrition severity: moderate Qualified Code(s): E44.0 - Moderate protein- calorie malnutrition Plan to address problem: Increase protein intake, dietary supplementation. (6) Crohn's disease Current Visit: Yes Status: Acute Qualifiers: Digestive disease complication type: with abscess Plan to address problem: CT scan of abdomen pelvis, supportive care, pain control, IV antibiotic therapy, surgery team consulted. (7) Nicotine dependence Current Visit: Yes Status: Acute Qualifiers: Nicotine product type: cigarettes Substance use status: in withdrawal Qualified Code(s): F17.213 - Nicotine dependence, cigarettes, with withdrawal Plan to address problem: Smoking cessation counseled, supportive care, behavior change counseling, +15 minutes. (8) GERD (gastroesophageal reflux disease) Current Visit: Yes Status: Acute Qualifiers: Esophagitis presence: without esophagitis Qualified Code(s): K21.9 - Gastro-esophageal reflux disease without esophagitis Plan to address problem: PPI therapy, supportive care. (9) Hypertension Current Visit: Yes Status: Acute Qualifiers: Hypertension type: primary hypertension Qualified Code(s): I10 - Essential (primary) hypertension Plan to address problem: Monitor blood pressure every shift, continue medical management. (10) Migraine Current Visit: Yes Status: Acute Qualifiers: Intractability: not intractable Plan to address problem: Pain control, no acute exacerbation at this time, supportive care, pain control. History Interval history: Patient seen and examined reports improvement, no new complaints reported. No fever reported. Patient not too happy about not being able to go home due to nonavailability of antibiotics understands that we will await ID input on making change Hospitalist Physical - Physical exam Narrative exam: VITAL SIGNS: Reviewed. GENERAL: The patient appears normally developed, Vital signs as documented. HEAD: No signs of head trauma. EYES: Pupils are equal. Extraocular motions intact. EARS: Hearing grossly intact. MOUTH: Oropharynx is normal. NECK: No adenopathy, no JVD. CHEST: Chest with clear breath sounds bilaterally. No wheezes, rales, or rhonchi. CARDIAC: Regular rate and rhythm. S1 and S2, without murmurs, gallops, or rubs. VASCULAR: No Edema. Peripheral pulses normal and equal in all extremities. ABDOMEN: 2 Abdominal drain, lower quadrant, Soft, non tender and non distended. No rebound or guarding, and no masses palpated. Bowel Sounds normal. MUSCULOSKELETAL: Good range of motion of all major joints. Extremities without clubbing, cyanosis or edema. NEUROLOGIC EXAM: Alert and oriented x 3 No focal sensory or strength deficits. Speech normal. Follows commands. PSYCHIATRIC: Mood normal. SKIN: well healed surgical scar, midline, detail exam as documented in skin assessment - Constitutional Vitals: Temp Pulse Resp BP Pulse Ox 99.1 F 67 18 124/62 99 03/15/22 17:31 03/17/22 05:32 03/16/22 05:35 03/17/22 05:32 03/17/22 08:01 General appearance: Present: mild distress Results - Labs CBC & Chem 7: 03/14/22 05:09 03/14/22 05:09 Labs: Laboratory Last Values WBC 5.0 K/mm3 (4.5-11.0) 03/14/22 05:09 RBC 2.98 M/mm3 (3.65-5.03) L 03/14/22 05:09 Hgb 8.7 gm/dl (11.8-15.2) L 03/14/22 05:09 Hct 27.1 % (35.5-45.6) L 03/14/22 05:09 MCV 91 fl (84-94) 03/14/22 05:09 MCH 29 pg (28-32) 03/14/22 05:09 MCHC 32 % (32-34) 03/14/22 05:09 RDW 15.1 % (13.2-15.2) 03/14/22 05:09 Plt Count 219 K/mm3 (140-440) 03/14/22 05:09 Lymph % (Auto) 10.5 % (13.4-35.0) L 03/13/22 05:35 Pine % (Auto) 8.3 % (0.0-7.3) H 03/13/22 05:35 Eos % (Auto) 3.4 % (0.0-4.3) 03/13/22 05:35 Baso % (Auto) 0.4 % (0.0-1.8) 03/13/22 05:35 Lymph # (Auto) 0.9 K/mm3 (1.2-5.4) L 03/13/22 05:35 Pine # (Auto) 0.7 K/mm3 (0.0-0.8) 03/13/22 05:35 Eos # (Auto) 0.3 K/mm3 (0.0-0.4) 03/13/22 05:35 Baso # (Auto) 0.0 K/mm3 (0.0-0.1) 03/13/22 05:35 Seg Neutrophils % 77.4 % (40.0-70.0) H 03/13/22 05:35 Seg Neutrophils # 6.4 K/mm3 (1.8-7.7) 03/13/22 05:35 PT 20.9 Sec. (12.2-14.9) H 03/12/22 09:52 INR 1.59 (0.87-1.13) H 03/12/22 09:52 Sodium 140 mmol/L (137-145) 03/14/22 05:09 Potassium 3.8 mmol/L (3.6-5.0) D 03/14/22 05:09 Chloride 103.5 mmol/L (98-107) 03/14/22 05:09 Carbon Dioxide 26 mmol/L (22-30) 03/14/22 05:09 Anion Gap 14 mmol/L 03/14/22 05:09 BUN 32 mg/dL (9-20) H 03/14/22 05:09 Creatinine 10.4 mg/dL (0.8-1.3) H 03/14/22 05:09 Estimated GFR 6 ml/min 03/14/22 05:09 BUN/Creatinine Ratio 3 % 03/14/22 05:09 Glucose 100 mg/dL (75-100) 03/14/22 05:09 Calcium 8.8 mg/dL (8.4-10.2) 03/14/22 05:09 Total Bilirubin 0.30 mg/dL (0.1-1.2) 03/14/22 05:09 Direct Bilirubin < 0.2 mg/dL (0-0.2) 03/12/22 09:52 Indirect Bilirubin 0.0 mg/dL 03/12/22 09:52 AST 10 units/L (5-40) 03/14/22 05:09 ALT < 5 units/L (7-56) L 03/14/22 05:09 Alkaline Phosphatase 102 units/L (35-129) 03/14/22 05:09 Total Protein 5.9 g/dL (6.3-8.2) L D 03/14/22 05:09 Albumin 2.3 g/dL (3.9-5) L 03/14/22 05:09 Albumin/Globulin Ratio 0.6 % 03/14/22 05:09 Lipase 8 units/L (13-60) L 03/12/22 09:52 Hepatitis A IgM Ab Non-reactive (NonReactive) 03/12/22 14:53 Hep Bs Antigen Non-reactive (Negative) 03/12/22 14:53 Hep B Core IgM Ab Non-reactive (NonReactive) 03/12/22 14:53 Hepatitis C Antibody Non-reactive (NonReactive) 03/12/22 14:53 Microbiology: Microbiology 03/12/22 Unknown Abdomen Surgical Culture - Preliminary Klebsiella Pneumoniae Escherichia Coli 03/12/22 Unknown Abdomen Surgical Culture - Preliminary Gram Negative Jaya Gram Negative Jaya#2 Jeffery/IV: Voiding Method Toilet Active Medications - Current Medications Current Medications: Generic Name Dose Route Start Last Admin Trade Name Freq PRN Reason Stop Dose Admin Acetaminophen 650 mg 03/12/22 13:48 Acetaminophen 325 Mg Tab PO Q4H PRN Pain MILD(1-3)/Fever >100.5/HULL Albumin Human 25 gm 03/12/22 18:34 Albumin Human 25% (25 Gm/100 Ml) Inj IV RYLAND PRN Hypotension Albuterol 2.5 mg 03/12/22 13:48 Albuterol 2.5 Mg/3 Ml Nebu IH Q4HRT PRN Shortness Of Breath Amitriptyline HCl 50 mg 03/13/22 22:00 03/16/22 21:49 Amitriptyline 25 Mg Tab PO 50 mg QHS THOMAS Administration Amlodipine Besylate 5 mg 03/13/22 10:00 03/16/22 10:42 Amlodipine 5 Mg Tab PO 5 mg DAILY THOMAS Administration Atorvastatin Calcium 40 mg 03/12/22 22:00 03/16/22 21:48 Atorvastatin 40 Mg Tab PO 40 mg QHS THOMAS Administration Calcium Acetate 667 mg 03/13/22 10:00 03/16/22 10:42 Calcium Acetate 667 Mg Cap PO 667 mg QDAY THOMAS Administration Carvedilol 12.5 mg 03/13/22 22:00 03/16/22 21:48 Carvedilol 12.5 Mg Tab PO 12.5 mg BID THOMAS Administration Clonidine HCl 0.3 mg 03/12/22 14:06 03/12/22 14:37 Clonidine Tts 0.3 Mg/24 Hr Patch TD 0.3 mg Mo THOMAS Administration Epoetin Maurice-epbx 20,000 unit 03/12/22 18:34 03/15/22 12:32 Epoetin Maurice-Epbx 20,000 Unit/1 Ml Vial IV 20,000 unit RYLAND PRN Administration hemodialysis Gabapentin 100 mg 03/13/22 14:30 03/14/22 22:01 Gabapentin 100 Mg Cap PO 100 mg TID PRN Administration burning pain Hydralazine HCl 50 mg 03/13/22 15:00 03/17/22 05:32 Hydralazine 25 Mg Tab PO 50 mg Q8HR THOMAS Administration Hydromorphone HCl 0.5 mg 03/12/22 13:48 03/17/22 01:06 Hydromorphone 0.5 Mg/0.5 Ml Inj IV 0.5 mg Q3H PRN Administration Pain , Severe (7-10) Sodium Chloride 1,000 mls @ 42 mls/hr 03/12/22 14:00 03/14/22 08:28 Nacl 0.9% 1000 Ml IV 42 mls/hr DIRECT THOMAS Administration Sodium Chloride 100 mls @ 999 mls/hr 03/12/22 18:34 Nacl 0.9% IV RYLAND PRN Hypotension Ertapenem 0.5 gm/ Sodium 50 mls @ 100 mls/hr 03/16/22 18:00 03/17/22 07:55 Chloride IV Not Given QPM [facility] Protocol Losartan Potassium 100 mg 03/13/22 10:00 03/16/22 10:42 Losartan 50 Mg Tab PO 100 mg QDAY THOMAS Administration Multivit/Ca Carb/B Cmplx/FA/Prenat 1 cap 03/13/22 10:00 03/16/22 10:42 Folic Acid/Vit B Comp W-C 1 Mg (Renal Caps) PO 1 cap QDAY THOMAS Administration Ondansetron HCl 4 mg 03/12/22 13:48 Ondansetron 4 Mg/2 Ml Inj IV Q8H PRN Nausea And Vomiting Oxycodone/Acetaminophen 1 tab 03/12/22 13:48 03/16/22 14:08 Oxycodone /Acetaminophen 5-325mg Tab PO 1 tab Q6H PRN Administration Pain, Moderate (4-6) Pantoprazole Sodium 40 mg 03/13/22 10:00 03/16/22 10:42 Pantoprazole 40 Mg Tab PO 40 mg DAILY THOMAS Administration Sodium Chloride 10 ml 03/12/22 22:00 03/16/22 21:49 Sodium Chloride 0.9% 10 Ml Flush Syringe IV 10 ml BID THOMAS Administration Sodium Chloride 10 ml 03/12/22 13:48 03/13/22 20:22 Sodium Chloride 0.9% 10 Ml Flush Syringe IV 10 ml PRN PRN Administration LINE FLUSH Sucralfate 1 gm 03/12/22 16:30 03/17/22 08:24 Sucralfate 1 Gm Tab PO 1 gm ACHS THOMAS Administration Nutrition/Malnutrition Assess - Dietary Evaluation Nutrition/Malnutrition Findings: Nutrition Notes Start: 03/13/22 16:49 Freq: Status: Active Protocol: Document 03/13/22 16:49 JEAN (Rec: 03/13/22 17:21 JEAN [id number]) Nutrition Notes 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 Current Diet Renal Diet (since L 03/13). Labs/Tests 03/13: Na 136, Cl 97.7, BUN 64 , Crea 16.3, Glu 72. Pertinent Medications 03/13: Phoslo, Renal Multivitamins, others nutritionally unremarkable. Height 5 ft 7 in Weight 65 kg [place] Body Weight (kg) 67.27 BMI 22.4 Intake Prior to Admission Poor Weight change and time frame Pt staes having, unintentionally, loss more than 34 lb recently. Weight Status Appropriate Subjective/Other Information RD consult for difficulty chewing and risk of malnutrition assessments. No reports available on Pt's PO intake of meals at the time , will assess at F/U. Pt is on Room Air, O2 saturation @ 97%, according to Physical Assessment History notes. Pt complained of abdominal pain and poor appetite at admission, according to Physical Assessment History notes. Pt presents 2 small surgical abdominal wonds with drainages placed, according to Physical Assessment History notes. There are no concerns for difficulkty chewing mentioned in the chart, I will disregard this concern at this time. Pt shows no longer signs of concern for risk of malnutriton at the time after abdominal abscess drainage and medical tratment, according to Physical Assessment History and Progress notes. Percent of energy/protein needs met: Prescribed Renal Diet provides for energy/protein needs (2, 072 Kcal/77 g) during LOS. Burn Absent Trauma Absent GI Symptoms Other Food Allergy No Skin Integrity/Comment 2 small surgical abdominal wonds. Minimum of two criteria No Energy Intake (non-severe) <75% Estimated Energy Requirement >7 days Interpretation of Weight Loss (severe) >5% in 1 month Fluid Accumulation N/A Reduced Strip Winder Strength N/A (non-severe) Protein-Calorie Malnutrition N\\A #1 Nutrition Diagnosis No nutrition diagnosis at this time Comments: Pt shows no longer signs of concern for risk of malnutriton at the time after abdominal abscess drainage and medical tratment, according to Physical Assessment History and Progress notes. Is patient on ventilator? No Is Patient Ambulatory and/or Out of Bed Yes REE-(Colome-St. Jeor-ambulatory/OOB) [ 1824.719 [id number]] Calculation Used for Recommendations Colome-St Jeor Additional Notes Protein: 1.5-2 g/Kg ABW; 98- 130 g/day. Fluids: 1 ml/Kcal, or as per MD. Nutrition Intervention Change Diet Order: Continue Renal Diet. Follow-Up By: 03/20/22 Additional Comments Continue monitoring food tolerance, %PO intake of meals , and BM.
--- NOTE | 2022-03-17 09:07 | Progress Note ---
Assessment and Plan This is a 61 year old man who presents with abdominal pain # ESRD: continue HD // or prn. 3K bath for now. HD due today - daily labs - renally dose meds - avoid nephrotoxins - renal diet - verbal consent obtained for HD # Nutrition: note albumin low, encourage po intake, protein diet # Anemia: last hemoglobin 9.8->8.7, follow, TACHO prn with HD # HTN: UF as tolerated, minimal given drainage. BP stable # Secondary Hyperparathyroidism: will continue home binders as needed- note Phoslo, vitamin D analogs prn # Intra-abdominal abscess: surgery/IR following, ID following- ertapenem not available in HD unit, note plans for oral abx Subjective Date of service: 03/17/22 Interval history: No acute issues noted, resting in bed this AM, on contact precautions. Objective - Exam Narrative Exam: Constitutional: no acute distress Head: NC/AT Neck: supple Lungs: clear to auscultation CV: RRR, no M/R/G Abdomen: drains noted Back: nontender Extremities: no edema, pulses WNL Skin: intact Neuro: no focal deficits, alert and oriented x4 - Vital Signs Vital signs: Vital Signs - 12hr 03/16/22 03/17/22 03/17/22 21:48 05:32 08:01 Pulse Rate 70 67 Blood Pressure 123/61 124/62 O2 Sat by Pulse 99 Oximetry - Lab 03/14/22 05:09 03/14/22 05:09 Most recent lab results Calcium 8.8 mg/dL (8.4-10.2) 03/14/22 05:09 Medications & Allergies - Medications Allergies/Adverse Reactions: Allergies No Known Allergies Allergy (Verified 03/12/22 08:54) Home Medications: Home Medications Medication Instructions Recorded Confirmed Last Taken Type Calcium Acetate 667 mg PO TIDAC 04/20/20 03/13/22 1 Day Ago History ~03/11/22 Pantoprazole Sodium 40 mg PO DAILY 12/19/21 03/12/22 1 Day Ago History ~03/11/22 Loperamide [Imodium] 2 mg PO 4XD PRN 03/12/22 03/12/22 Unknown History Sucralfate [Carafate] 1 gm PO ACHS 03/12/22 03/12/22 Unknown History cloNIDine-TTS PATCH [Catapres-Tts 1 patch TD Q7D 03/12/22 03/12/22 Unknown History 0.3mg Patch] Albuterol Mdi (or & Nicu Only) 2 puff IH Q4H PRN 03/13/22 03/13/22 Unknown History [ProAir HFA Inhaler] Amitriptyline [Elavil] 50 mg PO QHS 03/13/22 03/13/22 Unknown History AtorvaSTATin [Lipitor] 40 mg PO QHS 03/13/22 03/13/22 2 Days Ago History ~03/11/22 B Complex 11/Folic/C/Biot/Zinc 1 tab PO QDAY 03/13/22 03/13/22 2 Days Ago History [Dialyvite with Zinc Tablet] ~03/11/22 Gabapentin 100 mg PO TID PRN 03/13/22 03/13/22 Unknown History Potassium Chloride [Klor-Con M20] 20 meq PO QDAY 03/13/22 03/13/22 Unknown History carvediloL [Coreg] 12.5 mg PO BID 03/13/22 03/13/22 2 Days Ago History ~03/11/22 hydrALAZINE [Apresoline TAB] 50 mg PO Q8H 03/13/22 03/13/22 Unknown History Ciprofloxacin HCl 500 mg PO DAILY #14 tab 03/17/22 Unknown Rx Ertapenem [INVanz] 0.5 gm IV QPM vial 03/17/22 Unknown Rx Folic Acid/Vit B Comp W-C [Renal 1 cap PO QDAY #30 capsule 03/17/22 Unknown Rx Caps] Losartan [Cozaar] 100 mg PO QDAY #60 tablet 03/17/22 Unknown Rx amLODIPine 5 mg PO DAILY #30 tablet 03/17/22 Unknown Rx oxyCODONE /ACETAMINOPHEN [Percocet 1 tab PO Q6H PRN #14 tablet 03/17/22 Unknown Rx 5/325 mg] Active Medications: Generic Name Dose Route Start Last Admin Trade Name Freq PRN Reason Stop Dose Admin Acetaminophen 650 mg 03/12/22 13:48 Acetaminophen 325 Mg Tab PO Q4H PRN Pain MILD(1-3)/Fever >100.5/HULL Albumin Human 25 gm 03/12/22 18:34 Albumin Human 25% (25 Gm/100 Ml) Inj IV RYLAND PRN Hypotension Albuterol 2.5 mg 03/12/22 13:48 Albuterol 2.5 Mg/3 Ml Nebu IH Q4HRT PRN Shortness Of Breath Amitriptyline HCl 50 mg 03/13/22 22:00 03/16/22 21:49 Amitriptyline 25 Mg Tab PO 50 mg QHS THOMAS Administration Amlodipine Besylate 5 mg 03/13/22 10:00 03/16/22 10:42 Amlodipine 5 Mg Tab PO 5 mg DAILY THOMAS Administration Atorvastatin Calcium 40 mg 03/12/22 22:00 03/16/22 21:48 Atorvastatin 40 Mg Tab PO 40 mg QHS THOMAS Administration Calcium Acetate 667 mg 03/13/22 10:00 03/16/22 10:42 Calcium Acetate 667 Mg Cap PO 667 mg QDAY THOMAS Administration Carvedilol 12.5 mg 03/13/22 22:00 03/16/22 21:48 Carvedilol 12.5 Mg Tab PO 12.5 mg BID THOMAS Administration Clonidine HCl 0.3 mg 03/12/22 14:06 03/12/22 14:37 Clonidine Tts 0.3 Mg/24 Hr Patch TD 0.3 mg Mo THOMAS Administration Epoetin Maurice-epbx 20,000 unit 03/12/22 18:34 03/15/22 12:32 Epoetin Maurice-Epbx 20,000 Unit/1 Ml Vial IV 20,000 unit RYLAND PRN Administration hemodialysis Gabapentin 100 mg 03/13/22 14:30 03/14/22 22:01 Gabapentin 100 Mg Cap PO 100 mg TID PRN Administration burning pain Hydralazine HCl 50 mg 03/13/22 15:00 03/17/22 05:32 Hydralazine 25 Mg Tab PO 50 mg Q8HR THOMAS Administration Hydromorphone HCl 0.5 mg 03/12/22 13:48 03/17/22 01:06 Hydromorphone 0.5 Mg/0.5 Ml Inj IV 0.5 mg Q3H PRN Administration Pain , Severe (7-10) Sodium Chloride 1,000 mls @ 42 mls/hr 03/12/22 14:00 03/14/22 08:28 Nacl 0.9% 1000 Ml IV 42 mls/hr DIRECT THOMAS Administration Sodium Chloride 100 mls @ 999 mls/hr 03/12/22 18:34 Nacl 0.9% IV RYLAND PRN Hypotension Ertapenem 0.5 gm/ Sodium 50 mls @ 100 mls/hr 03/16/22 18:00 03/17/22 07:55 Chloride IV Not Given QPM [facility] Protocol Losartan Potassium 100 mg 03/13/22 10:00 03/16/22 10:42 Losartan 50 Mg Tab PO 100 mg QDAY THOMAS Administration Multivit/Ca Carb/B Cmplx/FA/Prenat 1 cap 03/13/22 10:00 03/16/22 10:42 Folic Acid/Vit B Comp W-C 1 Mg (Renal Caps) PO 1 cap QDAY THOMAS Administration Ondansetron HCl 4 mg 03/12/22 13:48 Ondansetron 4 Mg/2 Ml Inj IV Q8H PRN Nausea And Vomiting Oxycodone/Acetaminophen 1 tab 03/12/22 13:48 03/16/22 14:08 Oxycodone /Acetaminophen 5-325mg Tab PO 1 tab Q6H PRN Administration Pain, Moderate (4-6) Pantoprazole Sodium 40 mg 03/13/22 10:00 03/16/22 10:42 Pantoprazole 40 Mg Tab PO 40 mg DAILY THOMAS Administration Sodium Chloride 10 ml 03/12/22 22:00 03/16/22 21:49 Sodium Chloride 0.9% 10 Ml Flush Syringe IV 10 ml BID THOMAS Administration Sodium Chloride 10 ml 03/12/22 13:48 03/13/22 20:22 Sodium Chloride 0.9% 10 Ml Flush Syringe IV 10 ml PRN PRN Administration LINE FLUSH Sucralfate 1 gm 03/12/22 16:30 03/17/22 08:24 Sucralfate 1 Gm Tab PO 1 gm ACHS THOMAS Administration
[2022-03-17] MEDS: PANTOPRAZOLE 40 MG TAB PO SCH (09:26)
[2022-03-17] MEDS: CALCIUM ACETATE 667 MG CAP PO SCH (09:26)
[2022-03-17] MEDS: FOLIC ACID/VIT B COMP W-C 1 MG (RENAL CAPS) PO SCH (09:26)
[2022-03-17] MEDS: carvediloL 12.5 MG TAB PO SCH (09:27)
[2022-03-17] MEDS: LOSARTAN 50 MG TAB PO SCH (09:27)
[2022-03-17] MEDS: amLODIPine 5 MG TAB PO SCH (09:27)
[2022-03-17] MEDS: EPOETIN ALFA-EPBX 20,000 UNIT/1 ML VIAL IV PRN (11:16)
[2022-03-17 13:47] VITALS: BP 138/77
== END 2022-03-17 14:00 | disposition home or self-care (01) | DRG 393 ==
LOC: ED 08:24 → 3A 13:48
PROVIDERS: ADMIT Internal Medicine; ATTEND Internal Medicine
PROC: 0W9F30Z Drainage of Abdominal Wall with Drainage Device, Percutaneous Approach (ICD-10-PCS; principal; 2022-03-12)
PROC: 5A1D70Z Performance of Urinary Filtration, Intermittent, Less than 6 Hours Per Day (ICD-10-PCS; 2022-03-13)
PROC: 5A1D70Z Performance of Urinary Filtration, Intermittent, Less than 6 Hours Per Day (ICD-10-PCS; 2022-03-15)
PROC: 5A1D70Z Performance of Urinary Filtration, Intermittent, Less than 6 Hours Per Day (ICD-10-PCS; 2022-03-17)
DX: K63.2 Fistula of intestine (principal); K65.1 Peritoneal abscess; N18.6 End stage renal disease; R65.10 Systemic inflammatory response syndrome (SIRS) of non-infectious origin without acute organ dysfunction; I13.2 Hypertensive heart and chronic kidney disease with heart failure and with stage 5 chronic kidney disease, or end stage renal disease; L03.311 Cellulitis of abdominal wall; E44.0 Moderate protein-calorie malnutrition; K50.914 Crohn's disease, unspecified, with abscess; F17.213 Nicotine dependence, cigarettes, with withdrawal; I50.20 Unspecified systolic (congestive) heart failure; N25.81 Secondary hyperparathyroidism of renal origin; K21.9 Gastro-esophageal reflux disease without esophagitis; G43.909 Migraine, unspecified, not intractable, without status migrainosus; K46.9 Unspecified abdominal hernia without obstruction or gangrene; D64.9 Anemia, unspecified; Z79.899 Other long term (current) drug therapy; Z68.22 Body mass index [BMI] 22.0-22.9, adult; Z83.3 Family history of diabetes mellitus; Z86.711 Personal history of pulmonary embolism; Z82.49 Family history of ischemic heart disease and other diseases of the circulatory system; Z90.49 Acquired absence of other specified parts of digestive tract
CPT/HCPCS: 10160; 36415; 74177; 77012; 80048; 80053; 80074; 80076; 83690; 85025; 85027; 85610; 87076; 87116; 87186; 94640; 94760; G0378; J3490; J7517; J0692; J0696; J0885; J1170; J1335; J2250; J2270; J2405; J3010; J7030; P9047; Q9967